=== PATIENT | male | born 1940 | race Caucasian/White ===

== ENCOUNTER 2024-03-26 12:43 | Inpatient (IN) | payer MEDICARE, SELFPAY ==
[2024-03-26] VITALS (39 sets, daily range): BP systolic 82–210; BP diastolic 39–129; PULSE 82–149; RESP 15–33; TEMP 36.5–39; O2SAT 91–100; BMI 29.5
--- NOTE | ~2024-03-26 | XR_ITS ---
Clinical Indication: Weakness, shortness of breath AP and lateral views of the chest: Comparison: 11/02/2023 Findings: The lungs are clear, without evidence of focal consolidation or pleural effusion. Cardiome diastinal silhouette is within normal limits. Bones and soft tissues are unremarkable. Impression: Clear lungs. Reviewed, dictated and finalized at location . N[facility] FEEDER Impression: Clear lungs.
--- NOTE | ~2024-03-26 | CT_ITS ---
EXAMINATION: CTA chest PE protocol DATE: 03/26/2024 15:36 INDICATION: hypoxia, SOB, tachy, hx of cancer TECHNIQUE: Computed tomography angiography (CTA) of the chest was performed with 70 mL Omnipaque-350 intravenous contrast timed to evaluate the pulmonary arteries. Coronal maximum intensity projection 3 D-reconstructions were created by the technologist. The dose-length product (DLP) was 750.70 mGy-cm. Automated exposure control and iterative reconstruction technique were employed. COMPARISON: 11/02/2023; x-ray chest 03/26/2024. FINDINGS: Lung parenchyma and airways: Considerable motion artifact in the lower lungs. No large consolidation. Patent airways. Pleura: Unremarkable. Thoracic inlet, axillae and chest wall: Unremarkable. Thoracic aorta: No significant dilation. No dissection. Mild arch calcification. Mediastinum: Patulous esophagus. Heart and pericardium: Aortic valve calcification. Coronary artery calcifications: Mild. Upper abdomen: No significant finding. Bones: No acute osseous finding. Pulmonary arteries: Study quality: Considerable motion artifact in the lower lungs which obscures the lower lobe segmental and subsegmental arteries as well as subsegmental arteries in the lingula and r ight middle lobe. No pulmonary emboli detected. IMPRESSION: Motion limited examination. Suboptimal visualization of the bilateral lower lobe segmental and subseg mental arteries as well as subsegmental arteries in the lingula and right middle lobe. As No CT evide nce of acute pulmonary embolus in the adequately visualized pulmonary arteries. No acute process detected in the chest. Reviewed, dictated and finalized at location K. [employer] IMPRESSION: Motion limited examination. Suboptimal visualization of the bilateral lower lob e segmental and subsegmental arteries as well as subsegmental arteries in the l ingula and right middle lobe. As No CT evidence of acute pulmonary embolus in t he adequately visualized pulmonary arteries. No acute process detected in the chest.
--- NOTE | ~2024-03-26 | XR_ITS ---
EXAMINATION: XR chest 1V portable DATE: 03/29/2024 17:08 INDICATION: Shortness of breath TECHNIQUE: frontal view of the chest was obtained. COMPARISON: Chest radiograph dated 03/26/2024 FINDINGS: Mild increased interstitial pattern on the left lung base and at the right lower lung zone where ther e are also some peripheral curvilinear B-lines consistent with mild pulmonary edema. No pleural effus ion or pneumothorax. The cardiomediastinal silhouette is within normal limits for AP technique. IMPRESSION: 1. Mild pulmonary edema in the lower lungs, right greater left. Reviewed, dictated and finalized at location A. MODEL MAKER
--- NOTE | ~2024-03-26 | CT_ITS ---
EXAMINATION: CT abdomen pelvis wo con DATE: 03/26/2024 17:22 INDICATION: diarrhea, sepsis unclear source TECHNIQUE: Computed tomography (CT) of the abdomen and pelvis was performed without intravenous contr ast. Automated exposure control and iterative reconstruction technique were employed. The dose-length product was 1204.03 mGy-cm. COMPARISON: 07/07/2018. FINDINGS: Lower thorax: Mild senescent/emphysematous change. Lingular scar/atelectasis. Coronary artery and aor tic valve calcification. Liver: Normal. Biliary/Gallbladder: Gallbladder is absent. No bile duct dilation. Pancreas: No mass or duct dilation. Spleen: Granulomatous calcifications. Adrenals:No mass. Kidneys: Excreted contrast in multiple calyces. Patchy somewhat striated appearing nephrograms. Simpl e bilateral cysts. Perinephric stranding. GI tract: No small or large bowel dilation. Normal appendix. Diverticulosis without diverticulitis. Mesentery/Peritoneum: No ascites, mass, or free air. Retroperitoneum: No mass. Pelvis: Status post post prostatectomy. Normal urinary bladder. Left pelvic reservoir. Excreted contr ast in the urinary bladder. Soft Tissues: Small uncomplicated appearing fat-containing umbilical and bilateral inguinal hernias. Bones: No acute osseous finding. IMPRESSION: Striated appearing nephrograms which can occur with acute pyelonephritis, acute tubular necrosis, and hypotension. No signs of obstruction or medullary sponge kidney. Reviewed, dictated and finalized at location K. UCT CRAFTSMAN
--- NOTE | ~2024-03-26 | US_ITS ---
US renal BI Ordering provider: Marilu Rdz MD History: . GABRIELA on CKD . Comparison: None. Technique: Ultrasound bilateral kidneys. Findings: RIGHT KIDNEY: Measures 13x 5.4x 5.4 cm in length which is normal in size. No renal cysts. No renal ma ss or visualized echogenic stones. Otherwise, normal echotexture and contour. No hydronephrosis. Norm al renal cortical thickness. LEFT KIDNEY: Measures 11.6x 6x 5.1 cm in length which is normal in size. No renal cysts. No renal mas s or visualized echogenic stones. Otherwise, normal echotexture and contour. No hydronephrosis. Yesenia l renal cortical thickness. BLADDER: Normal. Ureteral jets were not seen bilaterally. IMPRESSION: No definite abnormality seen. Reviewed, dictated and finalized at location A. BOX OPERATOR
--- NOTE | 2024-03-26 12:46 | ECG_ITS ---
Test Date: 2024-03-26 12:55:31 Measurements Intervals [place] Rate: 110 P: -48 IA: 213 QRS: 55 QRSD: 127 T: 51 QT: 330 QTc: 447 Interpretive Statements SINUS TACHYCARDIA WITH FIRST DEGREE AV BLOCK INDETERMINATE AXIS RIGHT BUNDLE BRANCH BLOCK [120+ ms QRS DURATION, UPRIGHT V1, 40+ ms S IN I/aVL/V4/V5/V6] No previous ECG available for comparison Electronically Signed On 03-26-2024 22:03:22 AUDIOMETRIC TECHNICIAN by Melissa Medina M.D.
[2024-03-26 13:07] LABS: Basophils Absolute Auto 0.1 K/mm3 (0.0-0.1); Basophils Percent Auto 0.4 % (0.2-1.2); Eosinophils Absolute Auto 0.1 K/mm3 (0-0.3); Hematocrit 40.9 % (42.0-52.0); Hemoglobin 13.3 g/dL (14.0-18.0); Immature Granulocyte Absolute 0.16 K/mm3 (0.00-0.031); Immature Granulocyte Percent A 1.3 % (0-0.5); Lymphocytes Absolute Auto 1.23 K/mm3 (0.9-3.2); Lymphocytes Percent Auto 9.8 % (18.3-44.2); Mean Corpuscular HGB Conc 32.5 g/dl (32-36); Mean Corpuscular Hemoglobin 28.8 pg (26-34); Mean Corpuscular Volume 88.5 fl (80-100); Mean Platelet Volume 9.7 fl (7.4-10.4); Monocytes Absolute Auto 1.1 K/mm3 (0.1-0.6); Monocytes Percent Auto 8.9 % (2.6-8.5); Neutrophils Absolute Auto 9.9 K/mm3 (1.3-6.7); Neutrophils Percent Auto 78.6 % (45.5-73.1); Platelet Count Result 329 k/mm3 (150-375); Red Blood Count 4.62 M/mm3 (4.6-6.20); White Blood Count 12.6 K/mm3 (4.5-10.0)
[2024-03-26 13:19] LABS: Alanine Aminotransferase 14 U/L (6-50); Albumin Level 3.9 g/dL (3.5-5.1); Alkaline Phosphatase 132 U/L (38-126); Anion Gap 12 mmol/L (4-12); Aspartate Amino Transferase 23 U/L (17-59); Blood Urea Nitrogen 35 mg/dL (9-20); Calcium 9.3 mg/dL (8.4-10.2); Carbon Dioxide 21 mmol/L (22-30); Chloride 103 mmol/L (98-107); Estimated CRCL calculation 23 ml/min; Estimated Glomerular Filt Rate 26; Glucose 171 mg/dL (65-110); Potassium 3.6 mmol/L (3.4-5.0); Sodium 136 mmol/L (137-145)
--- NOTE | 2024-03-26 14:21 | ED_ITS ---
HPI - Weakness General Chief complaint: Weakness Stated complaint: weakness Time Seen by Provider: 03/26/24 14:02 History of Present Illness HPI Narrative: 83-year-old male with a history of CKD, prostate cancer presenting with generalized weakness. His family is at bedside and helps with the history. States that he has been having diarrhea some nausea vomiting, shortness of breath for the last several days. He has been increasingly weak and has not been eating or drinking much. He denies chest or abdominal pain. States that he feels a bit better now that he has oxygen on. Related Data Allergies Allergy/AdvReac Type Severity Reaction Status Date / Time No Known Allergies Allergy Verified 03/26/24 13:00 Review of Systems 2 Review of Systems: All systems reviewed & are unremarkable except as noted in HPI and below Exam 2 Narrative: GENERAL: Ill-appearing, pleasant cooperative HEAD: Normocephalic, atraumatic. EYES: PERRLA and EOMI. ENT: Mucous membranes dry NECK: Supple. CHEST: On 2 L nasal cannula, somewhat coarse breath sounds bilaterally No respiratory distress. HEART: Tachycardic, regular rhythm. ABDOMEN: Soft, nontender, nondistended EXTREMITIES: Normal range of motion. No edema. SKIN: Warm, dry, no rash. NEURO: Alert and oriented x3. PSYCH: Normal mood and affect. Course Vital Signs Vital signs: Vital Signs Temperature 102.2 F H 03/26/24 12:37 Pulse Rate 111 H 03/26/24 12:37 Respiratory Rate 24 H 03/26/24 12:37 Blood Pressure 210/129 H 03/26/24 12:37 Pulse Oximetry 93 03/26/24 12:37 Oxygen Delivery Room Air 03/26/24 12:37 Temperature 97.8 F 03/26/24 18:12 Pulse Rate 87 03/26/24 18:12 Respiratory Rate 20 03/26/24 18:12 Blood Pressure 129/58 L 03/26/24 18:12 Pulse Oximetry 95 03/26/24 18:50 Oxygen Delivery Room Air 03/26/24 18:50 Oxygen Flow Rate 1 03/26/24 18:00 MDM - Weakness MDM Narrative Medical decision making narrative: 83-year-old male presenting with generalized weakness, shortness of breath, diarrhea. Patient is tachycardic, tachypneic, febrile on arrival. 30 cc/kilos bolus has been ordered. Baseline creatinine is around 2.00 according to outside records on his [facility] my chart. Creatinine today is 2.4. White count of 12.6. UA does not appear infected. Lactic acid is normal. Patient is negative for influenza and COVID. CTA of the chest shows no acute abnormalities. CT of the abdomen concerning for possible pyelonephritis or acute tubular nephrosis. Patient has been covered with broad-spectrum antibiotics. Feel he would benefit from admission for sepsis with an unclear source. He is agreeable this plan. I spoke with the hospitalist was accepted him for admission. Differential Diagnosis Differential diagnosis: Likely sepsis, dehydration and other (Viral illness, GABRIELA) Medical Records Attestation: I reviewed the patient's medical records. Lab Data Attestation: I reviewed the patient's lab results. 03/26/24 13:01 03/26/24 13:01 Labs: Lab Results 03/26/24 03/26/24 03/26/24 Range/Units 13:01 13:46 14:41 WBC 12.6 H (4.5-10.0) K/mm3 RBC 4.62 (4.6-6.20) M/mm3 Hgb 13.3 L (14.0-18.0) g/dL Hct 40.9 L (42.0-52.0) % MCV 88.5 (80-100) fl MCH 28.8 (26-34) pg MCHC 32.5 (32-36) g/dl RDW 14.0 (11.5-14.5) % Plt Count 329 (150-375) k/mm3 MPV 9.7 (7.4-10.4) fl Immature Gran % (Auto) 1.3 H (0-0.5) % Neut % (Auto) 78.6 H (45.5-73.1) % Lymph % (Auto) 9.8 L (18.3-44.2) % [place] % (Auto) 8.9 H (2.6-8.5) % Eos % (Auto) 1.0 (0-4.4) % Baso % (Auto) 0.4 (0.2-1.2) % Lymph # (Auto) 1.23 (0.9-3.2) K/mm3 [place] # (Auto) 1.1 H (0.1-0.6) K/mm3 Eos # (Auto) 0.1 (0-0.3) K/mm3 Baso # (Auto) 0.1 (0.0-0.1) K/mm3 Abs Immat Gran (auto) 0.16 H (0.00-0.031) K/mm3 Absolute Neuts (auto) 9.9 H (1.3-6.7) K/mm3 Absolute Nucleated RBC 0.000 (0.0-0.012) K/mm3 Nucleated RBC % 0.0 (0.0-0.2) % Sodium 136 L (137-145) mmol/L Potassium 3.6 (3.4-5.0) mmol/L Chloride 103 (98-107) mmol/L Carbon Dioxide 21 L (22-30) mmol/L Anion Gap 12 (4-12) mmol/L BUN 35 H (9-20) mg/dL Creatinine 2.40 H (0.7-1.3) mg/dL Estim Creat Clear Calc 23 ml/min Estimated GFR 26 L (59 - ) Glucose 171 H (65-110) mg/dL Lactic Acid 0.9 (0.7-2.0) mmol/L Calcium 9.3 (8.4-10.2) mg/dL Magnesium 1.4 L (1.6-2.3) mg/dL Total Bilirubin 1.0 (0.2-1.3) mg/dL AST 23 (17-59) U/L ALT 14 (6-50) U/L Alkaline Phosphatase 132 H (38-126) U/L Total Protein 7.0 (6.3-8.2) g/dL Albumin 3.9 (3.5-5.1) g/dL Lipase 65 (23-300) U/L Urine Color (Yellow) Urine Appearance (Clear) Urine pH (5.0-9.0) Ur Specific [place] (1.001-1.035) Urine Protein (Negative) mg/dL Urine Glucose (UA) (Negative) mg/dL Urine Ketones (Negative) mg/dL Ur Blood (Man) (Negative) Urine Nitrate (Negative) Urine Bilirubin (Negative) Urine Urobilinogen (<2.0) mg/dL Add Ur Microanalysis Leukocyte Esterase Rfl (Negative) NADYA/UL Urine RBC (0-2) /hpf Urine WBC (0-3) /hpf Ur Squamous Epith Cells (Few) /hpf Urine Bacteria /hpf Urine Casts Influenza A (RT-PCR) Negative (Negative) Influenza B (RT-PCR) Negative (Negative) RSV (RT-PCR) Negative (Negative) SARS-CoV-2 RNA (RT-PCR) Negative (Negative) 03/26/24 Range/Units 17:45 WBC (4.5-10.0) K/mm3 RBC (4.6-6.20) M/mm3 Hgb (14.0-18.0) g/dL Hct (42.0-52.0) % MCV (80-100) fl MCH (26-34) pg MCHC (32-36) g/dl RDW (11.5-14.5) % Plt Count (150-375) k/mm3 MPV (7.4-10.4) fl Immature Gran % (Auto) (0-0.5) % Neut % (Auto) (45.5-73.1) % Lymph % (Auto) (18.3-44.2) % [place] % (Auto) (2.6-8.5) % Eos % (Auto) (0-4.4) % Baso % (Auto) (0.2-1.2) % Lymph # (Auto) (0.9-3.2) K/mm3 [place] # (Auto) (0.1-0.6) K/mm3 Eos # (Auto) (0-0.3) K/mm3 Baso # (Auto) (0.0-0.1) K/mm3 Abs Immat Gran (auto) (0.00-0.031) K/mm3 Absolute Neuts (auto) (1.3-6.7) K/mm3 Absolute Nucleated RBC (0.0-0.012) K/mm3 Nucleated RBC % (0.0-0.2) % Sodium (137-145) mmol/L Potassium (3.4-5.0) mmol/L Chloride (98-107) mmol/L Carbon Dioxide (22-30) mmol/L Anion Gap (4-12) mmol/L BUN (9-20) mg/dL Creatinine (0.7-1.3) mg/dL Estim Creat Clear Calc ml/min Estimated GFR (59 - ) Glucose (65-110) mg/dL Lactic Acid (0.7-2.0) mmol/L Calcium (8.4-10.2) mg/dL Magnesium (1.6-2.3) mg/dL Total Bilirubin (0.2-1.3) mg/dL AST (17-59) U/L ALT (6-50) U/L Alkaline Phosphatase (38-126) U/L Total Protein (6.3-8.2) g/dL Albumin (3.5-5.1) g/dL Lipase (23-300) U/L Urine Color Yellow (Yellow) Urine Appearance Cloudy H (Clear) Urine pH 5.5 (5.0-9.0) Ur Specific [place] 1.018 (1.001-1.035) Urine Protein 2+ H (Negative) mg/dL Urine Glucose (UA) Negative (Negative) mg/dL Urine Ketones 1+ H (Negative) mg/dL Ur Blood (Man) Negative (Negative) Urine Nitrate Negative (Negative) Urine Bilirubin Negative (Negative) Urine Urobilinogen 0.2 (<2.0) mg/dL Add Ur Microanalysis Reviewed Leukocyte Esterase Rfl Negative (Negative) NADYA/UL Urine RBC 0-2 (0-2) /hpf Urine WBC 0-5 (0-3) /hpf Ur Squamous Epith Cells None seen (Few) /hpf Urine Bacteria None seen /hpf Urine Casts >20 Influenza A (RT-PCR) (Negative) Influenza B (RT-PCR) (Negative) RSV (RT-PCR) (Negative) SARS-CoV-2 RNA (RT-PCR) (Negative) Imaging Data Radiologist's impression: ITS Impressions Chest X-Ray 03/26/24 13:57 Impression: Clear lungs. Chest CTA 03/26/24 15:51 IMPRESSION: Motion limited examination. Suboptimal visualization of the bilateral lower lobe segmental and subsegmental arteries as well as subsegmental arteries in the lingula and right middle lobe. As No CT evidence of acute pulmonary embolus in the adequately visualized pulmonary arteries. No acute process detected in the chest. Abdomen/Pelvis CT 03/26/24 17:24 IMPRESSION: Striated appearing nephrograms which can occur with acute pyelonephritis, acute tubular necrosis, and hypotension. No signs of obstruction or medullary sponge kidney. Critical Care Time Critical Care Time Critical Care Time: No Discharge Plan Discharge Clinical Impression: SIRS (systemic inflammatory response syndrome), Febrile illness, Diarrhea Patient Disposition: Still a Patient Condition: Improved Instructions: Antibiotic Form Patient Language: Martiniquais Follow-up/Referrals: Jeane,Kraig Fernandez MD [Primary Care Provider] -
[2024-03-26 14:25] LABS: Influenza A QL RT-PCR Negative (Negative); Influenza B QL RT-PCR Negative (Negative); RSV RNA, RT-PCR Negative (Negative); SARS-CoV-2 RNA PCR Negative (Negative)
[2024-03-26] MEDS: ACETAMINOPHEN 500 MG TABLET 1000 MG PO ×2 (14:31→23:57)
[2024-03-26] MEDS: SODIUM CHLORIDE 0.9% IV 1,000 ML 999 ML IV CONT ×3 (14:31→17:37)
[2024-03-26] MEDS: ONDANSETRON INJ 4 MG/2 ML VIAL IV PUSH (14:33)
[2024-03-26 14:34] LABS: Lipase 65 U/L (23-300); Magnesium 1.4 mg/dL (1.6-2.3)
[2024-03-26 14:58] LABS: Lactic Acid Reflex 0.9 mmol/L (0.7-2.0)
[2024-03-26] MEDS: CEFEPIME 2 GM/NS 50 ML 2 GM/50 ML BAG IVPB (17:38)
[2024-03-26] MEDS: VANCOMYCIN 1,250 MG/NS 250 ML 1,250 MG/250 ML BAG 166.67 MG IVPB ×2 (18:10→20:02)
[2024-03-26 18:15] LABS: Add Urine Microscopic? YES; Appearance Urine Cloudy (Clear); Bacteria Urine None Seen /hpf; Bilirubin Urine Negative (Negative); Blood Urine Negative (Negative); Color Urine Yellow (Yellow); Glucose Urine UA Negative (Negative); Ketones Urine 1+ mg/dL (Negative); Leukocyte Esterase Ur Negative LEU/UL (Negative); Need Manual Microscopic Reviewed; Nitrate Urine Negative (Negative); Non Pathogenic Casts >20; Protein Urine 2+ mg/dL (Negative); RBC Urine 0-2 /hpf (0-2); Specific Grav Ur 1.018 (1.001-1.035); Squamous Epithelial Cell Urine None Seen /hpf (Few); Urobilinogen Urine 0.2 mg/dL (<2.0); WBC Urine 0-5 /hpf (0-3); pH Urine 5.5 (5.0-9.0)
--- NOTE | 2024-03-26 20:13 | PC.NURSE ---
Admission report to [facility] Doty.
[2024-03-26 20:40] LABS: Glucose Point of Care 140 mg/dl (65-105)
--- NOTE | 2024-03-26 21:12 | P.HP_ITS ---
H&P: HPI History of Present Illness Date/Time: 03/26/24 21:12 Chief Complaint: chills Narrative: This is an 83-year-old male with past medical history significant for insulin- dependent diabetes mellitus, dyslipidemia, chronic kidney disease, glaucoma. Patient presents to the emergency room due to generalized malaise, chills, fevers, night sweats, poor appetite for the last week or so. Upon presentation to emergency room patient had low pulse ox placed on supplemental oxygen by nasal cannula. Preliminary workup was significant for patient was ruled out for acute pulmonary embolism with a negative CT angiogram of the chest patient was found to have pyelonephritis. AP and lateral views of the chest: Comparison: 11/02/2023 Findings: The lungs are clear, without evidence of focal consolidation or p leural effusion. Cardiomediastinal silhouette is within normal limits. Bones and soft tissues are unremarkable. Impression: Clear lungs. EXAMINATION: CTA chest PE protocol DATE: 03/26/2024 15:36 INDICATION: hypoxia, SOB, tachy, hx of cancer TECHNIQUE: Computed tomography angiography (CTA) of the chest was performed with 70 mL Omnipaque-350 intravenous contrast timed to evaluate the pulmonary arteries. Coronal maximum intensity projection 3D-reconstructions were created by the technologist. The dose-length product (DLP) was 750.70 mGy-cm. Automated exposure control and iterative reconstruction technique were employed. COMPARISON: 11/02/2023; x-ray chest 03/26/2024. FINDINGS: Lung parenchyma and airways: Considerable motion artifact in the lower lungs. No large consolidation. Patent airways. Pleura: Unremarkable. Thoracic inlet, axillae and chest wall: Unremarkable. Thoracic aorta: No significant dilation. No dissection. Mild arch calcification. Mediastinum: Patulous esophagus. Heart and pericardium: Aortic valve calcification. Coronary artery calcifications: Mild. Upper abdomen: No significant finding. Bones: No acute osseous finding. Pulmonary arteries: Study quality: Considerable motion artifact in the lower lungs which obscures the lower lobe segmental and subsegmental arteries as well as subsegmental arteries in the lingula and right middle lobe. No pulmonary emboli detected. IMPRESSION: Motion limited examination. Suboptimal visualization of the bilateral lower lobe segmental and subsegmental arteries as well as subsegmental arteries in the lingula and right middle lobe. As No CT evidence of acute pulmonary embolus in the adequately visualized pulmonary arteries. No acute process detected in the chest. EXAMINATION: CT abdomen pelvis wo con DATE: 03/26/2024 17:22 INDICATION: diarrhea, sepsis unclear source TECHNIQUE: Computed tomography (CT) of the abdomen and pelvis was performed without intravenous contrast. Automated exposure control and iterative reconstruction technique were employed. The dose-length product was 1204.03 mGy- cm. COMPARISON: 07/07/2018. FINDINGS: Lower thorax: Mild senescent/emphysematous change. Lingular scar/atelectasis. Coronary artery and aortic valve calcification. Liver: Normal. Biliary/Gallbladder: Gallbladder is absent. No bile duct dilation. Pancreas: No mass or duct dilation. Spleen: Granulomatous calcifications. Adrenals:No mass. Kidneys: Excreted contrast in multiple calyces. Patchy somewhat striated appearing nephrograms. Simple bilateral cysts. Perinephric stranding. GI tract: No small or large bowel dilation. Normal appendix. Diverticulosis without diverticulitis. Mesentery/Peritoneum: No ascites, mass, or free air. Retroperitoneum: No mass. Pelvis: Status post post prostatectomy. Normal urinary bladder. Left pelvic reservoir. Excreted contrast in the urinary bladder. Soft Tissues: Small uncomplicated appearing fat-containing umbilical and bilateral inguinal hernias. Bones: No acute osseous finding. IMPRESSION: Striated appearing nephrograms which can occur with acute pyelonephritis, acute tubular necrosis, and hypotension. No signs of obstruction or medullary sponge kidney. [facility] Family History Family History (Updated 03/26/24 @ 19:50 by Latasha Stewart RN) Mother Kidney failure Father Alzheimer's dementia Social History Social History Years smoked: 65 Smoking status: Current every day smoker Alcohol intake: current Drinks per week: 4 Substance use type: marijuana Do You Feel Safe in your Home?: Yes Lack of Transportation: No Lack of Food: Never True Current Housing: I Have Housing Concerned About Future Housing: No Difficulty Paying Gas/Electric Bills: No Difficulty Paying for Meds: No Currently Unemployed: No Education: Master's Degree or Higher Difficulty w/ Childcare or Family Care: No Spiritual care concerns: No Meds Home Medications and Allergies Home Medications ?Medication ?Instructions ?Recorded ?Confirmed ?Type abiraterone 250 mg tablet 1,000 mg PO HS 03/26/24 03/26/24 History carvedilol 12.5 mg tablet 12.5 mg PO Q12H 03/26/24 03/26/24 History chlorthalidone 25 mg tablet 25 mg PO DAILY 03/26/24 03/26/24 History dorzolamide 22.3 mg-timolol 6.8 1 drp EACH EYE Q12H 03/26/24 03/26/24 History mg/mL eye drops fluoride (sodium) 1.1 % dental 1 applic dental Q24H 03/26/24 03/26/24 History cream (PreviDent 5000 Plus) insulin aspart U-100 100 unit/mL 1 sliding scale dose subcut TID 03/26/24 03/26/24 History (3 mL) subcutaneous pen (Novolog FlexPen U-100 Insulin aspart) insulin glargine 100 unit/mL (3 28 unit subcut QPM 03/26/24 03/26/24 History mL) subcutaneous pen (Lantus Solostar U-100 Insulin) lisinopril 20 mg tablet 40 mg PO DAILY 03/26/24 03/26/24 History oxycodone 5 mg tablet 5 mg PO Q6H PRN pain 03/26/24 03/26/24 History pantoprazole 40 mg tablet,delayed 40 mg PO DAILY 03/26/24 03/26/24 History release pravastatin 20 mg tablet 20 mg PO DAILY 03/26/24 03/26/24 History prednisone 5 mg tablet 5 mg PO Q12H 03/26/24 03/26/24 History sitagliptin phosphate 25 mg tablet 25 mg PO DAILY 03/26/24 03/26/24 History (Kendra) Allergies Allergy/AdvReac Type Severity Reaction Status Date / Time No Known Allergies Allergy Verified 03/26/24 20:07 Vital Signs Vital Signs - 24 hr 03/26/24 12:37 03/26/24 12:58 03/26/24 12:58 Temperature 102.2 F H Pulse Rate 111 H Respiratory Rate 24 H Blood Pressure 210/129 H Pulse Oximetry 93 93 96 Oxygen Delivery Room Air Room Air Nasal Cannula Oxygen Flow Rate 2 03/26/24 13:45 03/26/24 13:46 03/26/24 14:30 Temperature Pulse Rate 114 H 119 H 95 Respiratory Rate 15 25 H 24 H Blood Pressure 152/63 H Pulse Oximetry 94 94 96 Oxygen Delivery Oxygen Flow Rate 03/26/24 14:43 03/26/24 15:01 03/26/24 15:34 Temperature 97.7 F Pulse Rate 149 H 103 H Respiratory Rate 23 H Blood Pressure 136/121 H Pulse Oximetry 100 Oxygen Delivery Oxygen Flow Rate 03/26/24 15:35 03/26/24 15:52 03/26/24 16:00 Temperature 97.8 F Pulse Rate 88 106 H 87 Respiratory Rate 20 26 H 22 H Blood Pressure 106/56 L 103/53 L Pulse Oximetry 97 94 Oxygen Delivery Oxygen Flow Rate 03/26/24 16:02 03/26/24 16:55 03/26/24 17:00 Temperature Pulse Rate 95 90 98 Respiratory Rate 22 H 23 H 22 H Blood Pressure 82/39 L Pulse Oximetry 94 Oxygen Delivery Oxygen Flow Rate 03/26/24 17:01 03/26/24 17:23 03/26/24 17:35 Temperature Pulse Rate 100 103 H 82 Respiratory Rate 25 H 29 H 22 H Blood Pressure Pulse Oximetry 97 98 Oxygen Delivery Oxygen Flow Rate 03/26/24 17:37 03/26/24 17:45 03/26/24 17:45 Temperature 97.7 F Pulse Rate 98 93 89 Respiratory Rate 27 H 25 H 24 H Blood Pressure 119/89 119/89 Pulse Oximetry 99 97 97 Oxygen Delivery Oxygen Flow Rate 03/26/24 17:46 03/26/24 17:46 03/26/24 18:00 Temperature Pulse Rate 115 H Respiratory Rate 23 H Blood Pressure 115/60 Pulse Oximetry 97 98 97 Oxygen Delivery Nasal Cannula Nasal Cannula Oxygen Flow Rate 2 1 03/26/24 18:00 03/26/24 18:01 03/26/24 18:12 Temperature 97.8 F Pulse Rate 91 90 87 Respiratory Rate 22 H 33 H 20 Blood Pressure 129/58 L 129/58 L Pulse Oximetry 97 96 Oxygen Delivery Oxygen Flow Rate 03/26/24 18:23 03/26/24 18:30 03/26/24 18:31 Temperature Pulse Rate 104 H 110 H 108 H Respiratory Rate 20 24 H 15 Blood Pressure 118/50 L Pulse Oximetry 91 96 96 Oxygen Delivery Oxygen Flow Rate 03/26/24 18:45 03/26/24 18:46 03/26/24 18:50 Temperature Pulse Rate 92 95 Respiratory Rate 22 H 20 Blood Pressure 123/49 L Pulse Oximetry 94 93 95 Oxygen Delivery Room Air Oxygen Flow Rate 03/26/24 19:00 03/26/24 19:01 03/26/24 19:15 Temperature Pulse Rate 112 H 109 H 96 Respiratory Rate 20 22 H 19 Blood Pressure 125/53 L Pulse Oximetry 95 Oxygen Delivery Oxygen Flow Rate 03/26/24 19:16 03/26/24 20:21 03/26/24 21:05 Temperature 98.3 F Pulse Rate 99 99 90 Respiratory Rate 20 20 18 Blood Pressure 109/44 L 109/44 L 118/59 L Pulse Oximetry 94 96 Oxygen Delivery Oxygen Flow Rate Exam Narrative: lying in bed Const: General: cooperative, comfortable, no acute distress, well developed, alert, awake, ill appearing acutely and overweight Nutritional Appearance: overweight Orientation/consciousness: patient oriented x3 HENMT: Head: normal to inspection, normocephalic and atraumatic Ears: hearing grossly normal bilaterally Face/Nose/Sinus: normal facial exam Face and sinus: normal facial exam Eyes: General: appearance normal, both eyes and all related structures Pupils: Equal, round and reactive pupils present EOM: EOMs intact bilaterally Neck: Neck: full ROM, no lymphadenopathy and no JVD Thyroid: thyroid normal Lymphatic: no lymphadenopathy noted Resp: Effort & Inspection: normal respiratory effort and able to speak in complete sentences Auscultation: clear to auscultation bilaterally Cardio: Jugular venous distension: no JVD Rate: regular rate Rhythm: regular rhythm Heart sounds: S1 normal heart sound present and S2 normal heart sound present GI: Inspection: Pannus present, obesity, scar (old surgical scar) and no visible herniation GI Palp: Yes Soft to palpation and Yes No hepatosplenomegaly present : General: Yes deferred Skin: Rashes: no rashes Wounds: no wounds Neuro: General: patient oriented x3 and CN's II-XI intact bilaterally Cranial nerves: Yes CN's II-XII intact bilaterally and Yes Equal, round and reactive pupils present Cognition (Neuro): normal cognition Speech: normal speech Motor exam (neuro): 5/5 motor strength present throughout Extrem: General: normal to inspection, full ROM, no joint enlargement and no pedal edema H&P: Results Labs Labs: Short CBC 03/26/24 Range/Units 13:01 WBC 12.6 H (4.5-10.0) K/mm3 Hgb 13.3 L (14.0-18.0) g/dL Hct 40.9 L (42.0-52.0) % Plt Count 329 (150-375) k/mm3 BMP 03/26/24 13:01 Sodium 136 L Potassium 3.6 Chloride 103 Carbon Dioxide 21 L BUN 35 H Creatinine 2.40 H Glucose 171 H Calcium 9.3 Liver Function 03/26/24 Range/Units 13:01 Total Bilirubin 1.0 (0.2-1.3) mg/dL AST 23 (17-59) U/L ALT 14 (6-50) U/L Alkaline Phosphatase 132 H (38-126) U/L Albumin 3.9 (3.5-5.1) g/dL Urine 03/26/24 Range/Units 17:45 Urine Color Yellow (Yellow) Urine Appearance Cloudy H (Clear) Urine pH 5.5 (5.0-9.0) Ur Specific [place] 1.018 (1.001-1.035) Urine Protein 2+ H (Negative) mg/dL Urine Glucose (UA) Negative (Negative) mg/dL Assessment and Plan Assessment and plan (1) Pyelonephritis: Code(s): N12 - Tubulo-interstitial nephritis, not specified as acute or chronic Status: Acute Assessment and Plan: Admit to med tele patient started on cefepime and vancomycin await cultures (2) Acute hypoxic respiratory failure: Code(s): J96.01 - Acute respiratory failure with hypoxia Status: Acute Assessment and Plan: on supplemental oxygen by nasal cannula ruled out for acute pulmonary embolism with CT angiogram of the chest (3) Diarrhea: Code(s): R19.7 - Diarrhea, unspecified Status: Acute Assessment and Plan: continue to monitor (4) Febrile illness: Code(s): R50.9 - Fever, unspecified Status: Acute Assessment and Plan: likely secondary to 1. (5) SIRS (systemic inflammatory response syndrome): Code(s): R65.10 - Systemic inflammatory response syndrome (SIRS) of non-infectious origin without acute organ dysfunction Status: Acute Assessment and Plan: Supportive care (6) T2DM (type 2 diabetes mellitus): Code(s): E11.9 - Type 2 diabetes mellitus without complications Status: Acute Assessment and Plan: resume home meds as needed holding Januvia carb consistent diet (7) Hypomagnesemia: Code(s): E83.42 - Hypomagnesemia Status: Acute Assessment and Plan: replace as needed (8) GABRIELA (acute kidney injury): Code(s): N17.9 - Acute kidney failure, unspecified Status: Acute Assessment and Plan: holding losartan holding chlorthalidone Hospitalist [facility] Advance Care Plan I have confirmed that the patient's Advanced Care Plan is present, code status is documented, or surrogate decision maker is listed in patient medical record.: Yes Medication Reconciliation I have utilized all available resources to obtain, update and review the patients current medications (includes all prescriptions, OTC, herbals, cannabis, and nutritional supplements).: Yes
[2024-03-26] MEDS: MAGNESIUM SULF 2 GM/WATER 50ML 2 GM/50 ML BAG IVPB (23:00)
[2024-03-26] MEDS: carvediloL 12.5 MG TABLET PO (23:01)
[2024-03-26] MEDS: predniSONE 5 MG TABLET PO (23:02)
[2024-03-27] VITALS (14 sets, daily range): BP systolic 100–119; BP diastolic 58–71; PULSE 68–83; RESP 16–22; TEMP 36.3–37; O2SAT 93–100
[2024-03-27] MEDS: IPRATROPIUM 0.5 MG/ALBUTEROL SULFATE 2.5 MG AMPUL.NEB 3 ML INHALATION ×4 (00:16→21:27)
--- NOTE | 2024-03-27 00:21 | ADMGEN ---
This patient, David Wei, was admitted to [facility] Surg Room 305-02. Patient/family oriented to hospital policies and general routines including ID bracelet, bed and alarms, visiting hours, pain management, procedures, bathroom and other care routines, personal items, smoking policy, room service/diet, and visiting hours. Information on how to activate the Rapid Response Team has been discussed. Patient/Family are encouraged to report perceived risks to care and to ask questions if they do not understand what they are told or what they should do.
[2024-03-27 07:20] LABS: Estimated CRCL calculation 17 ml/min; Estimated Glomerular Filt Rate 18
[2024-03-27 07:34] LABS: Glucose Point of Care 171 mg/dl (65-105)
[2024-03-27] MEDS: PANTOPRAZOLE 40 MG TABLET PO (08:43)
[2024-03-27] MEDS: predniSONE 5 MG TABLET PO ×2 (08:43→20:39)
[2024-03-27] MEDS: carvediloL 12.5 MG TABLET PO (08:44)
[2024-03-27 11:17] LABS: Glucose Point of Care 200 mg/dl (65-105)
--- NOTE | 2024-03-27 11:37 | P.PNIM_ITS ---
Progress Note: A&P Assessment and Plan (1) Pyelonephritis: Code(s): N12 - Tubulo-interstitial nephritis, not specified as acute or chronic Status: Acute Assessment and Plan: - patient on cefepime and vancomycin - await blood and urine cultures. - Nephro consulted. (2) Acute hypoxic respiratory failure: Code(s): J96.01 - Acute respiratory failure with hypoxia Status: Acute Assessment and Plan: - Unclear etiology. - CTA chest negative for PE or other acute. - CXR negative. - Possibly CHF vs other. - Currently on supplemental oxygen 3L/NC for sats > 90 %. - We'll wean O2 as tolerated. - Avoid lasix for now with GABRIELA on CKD. - Monitor progress. (3) Diarrhea: Code(s): R19.7 - Diarrhea, unspecified Status: Acute Assessment and Plan: - Unclear etiology. - Much improved. - monitor for now. (4) Febrile illness: Code(s): R50.9 - Fever, unspecified Status: Acute Assessment and Plan: - likely secondary to 1. - No episodes today. (5) SIRS (systemic inflammatory response syndrome): Code(s): R65.10 - Systemic inflammatory response syndrome (SIRS) of non-infectious origin without acute organ dysfunction Status: Acute Assessment and Plan: - Likely related to # 1. - Continue supportive care with IV abx. (6) T2DM (type 2 diabetes mellitus): Code(s): E11.9 - Type 2 diabetes mellitus without complications Status: Acute Assessment and Plan: - Blood glucose levels slightly elevated. - Prandial insulin slightly adjusted. - Continue to adjust insulin as needed. - Continue carb consistent diet (7) Hypomagnesemia: Code(s): E83.42 - Hypomagnesemia Status: Acute Assessment and Plan: replace as needed (8) GABRIELA (acute kidney injury): Code(s): N17.9 - Acute kidney failure, unspecified Status: Acute Assessment and Plan: - GABRIELA on CKD. - Follows up with adjunct physics instructor outpatient. - Cr higher than previous baseline. - holding losartan - holding chlorthalidone - Diving Board Assembler consulted. - Avoid nephrotoxins. - Meds dosing per renal function. Time Spent With Patient Time with patient: 15 - 25 minutes Subjective Date/time seen: 03/27/24 11:37 Patient states he feels alright and has no pain or other distressful symptoms. Interval history: Patient seated bedside and looks to be in no acute distress. Admitted for pyelonephritis and GABRIELA on CKD. Review of Systems Review of Systems: All systems reviewed & are unremarkable except as noted in HPI and below Exam Narrative: General: Fair appearing, no acute distress. HEENT: Atraumatic, PERRL, EOM, moist mucosa. NECK: Supple. Lungs: Clear bilaterally. HEART: RRR, no murmurs. Abdomen: Soft, non-tender, non-distended, +ve bowels X4 quadrants. Extremities: Acyanotic, no edema. Skin: Warm and dry. No lesions. Neuro: Well oriented. CN II-XII grossly intact. Psych: Calm and co-operative. Objective Data Vital Signs Vital Signs: Vital Signs - 24 hr 03/26/24 12:37 03/26/24 12:58 03/26/24 12:58 Temperature 102.2 F H Pulse Rate 111 H Respiratory Rate 24 H Blood Pressure 210/129 H Pulse Oximetry 93 93 96 Oxygen Delivery Room Air Room Air Nasal Cannula Oxygen Flow Rate 2 03/26/24 13:45 03/26/24 13:46 03/26/24 14:30 Temperature Pulse Rate 114 H 119 H 95 Respiratory Rate 15 25 H 24 H Blood Pressure 152/63 H Pulse Oximetry 94 94 96 Oxygen Delivery Oxygen Flow Rate 03/26/24 14:43 03/26/24 15:01 03/26/24 15:34 Temperature 97.7 F Pulse Rate 149 H 103 H Respiratory Rate 23 H Blood Pressure 136/121 H Pulse Oximetry 100 Oxygen Delivery Oxygen Flow Rate 03/26/24 15:35 03/26/24 15:52 03/26/24 16:00 Temperature 97.8 F Pulse Rate 88 106 H 87 Respiratory Rate 20 26 H 22 H Blood Pressure 106/56 L 103/53 L Pulse Oximetry 97 94 Oxygen Delivery Oxygen Flow Rate 03/26/24 16:02 03/26/24 16:55 03/26/24 17:00 Temperature Pulse Rate 95 90 98 Respiratory Rate 22 H 23 H 22 H Blood Pressure 82/39 L Pulse Oximetry 94 Oxygen Delivery Oxygen Flow Rate 03/26/24 17:01 03/26/24 17:23 03/26/24 17:35 Temperature Pulse Rate 100 103 H 82 Respiratory Rate 25 H 29 H 22 H Blood Pressure Pulse Oximetry 97 98 Oxygen Delivery Oxygen Flow Rate 03/26/24 17:37 03/26/24 17:45 03/26/24 17:45 Temperature 97.7 F Pulse Rate 98 93 89 Respiratory Rate 27 H 25 H 24 H Blood Pressure 119/89 119/89 Pulse Oximetry 99 97 97 Oxygen Delivery Oxygen Flow Rate 03/26/24 17:46 03/26/24 17:46 03/26/24 18:00 Temperature Pulse Rate 115 H Respiratory Rate 23 H Blood Pressure 115/60 Pulse Oximetry 97 98 97 Oxygen Delivery Nasal Cannula Nasal Cannula Oxygen Flow Rate 2 1 03/26/24 18:00 03/26/24 18:01 03/26/24 18:12 Temperature 97.8 F Pulse Rate 91 90 87 Respiratory Rate 22 H 33 H 20 Blood Pressure 129/58 L 129/58 L Pulse Oximetry 97 96 Oxygen Delivery Oxygen Flow Rate 03/26/24 18:23 03/26/24 18:30 03/26/24 18:31 Temperature Pulse Rate 104 H 110 H 108 H Respiratory Rate 20 24 H 15 Blood Pressure 118/50 L Pulse Oximetry 91 96 96 Oxygen Delivery Oxygen Flow Rate 03/26/24 18:45 03/26/24 18:46 03/26/24 18:50 Temperature Pulse Rate 92 95 Respiratory Rate 22 H 20 Blood Pressure 123/49 L Pulse Oximetry 94 93 95 Oxygen Delivery Room Air Oxygen Flow Rate 03/26/24 19:00 03/26/24 19:01 03/26/24 19:15 Temperature Pulse Rate 112 H 109 H 96 Respiratory Rate 20 22 H 19 Blood Pressure 125/53 L Pulse Oximetry 95 Oxygen Delivery Oxygen Flow Rate 03/26/24 19:16 03/26/24 20:21 03/26/24 21:05 Temperature 98.3 F Pulse Rate 99 99 90 Respiratory Rate 20 20 18 Blood Pressure 109/44 L 109/44 L 118/59 L Pulse Oximetry 94 96 Oxygen Delivery Oxygen Flow Rate 03/26/24 23:01 03/26/24 23:40 03/26/24 23:45 Temperature 100.5 F H Pulse Rate 98 105 H Respiratory Rate 24 H Blood Pressure 102/54 L Pulse Oximetry 94 94 Oxygen Delivery Nasal Cannula Oxygen Flow Rate 3 03/26/24 23:57 03/27/24 00:00 03/27/24 00:17 Temperature 100.5 F H Pulse Rate 78 70 Respiratory Rate 22 H Blood Pressure Pulse Oximetry Oxygen Delivery Oxygen Flow Rate 03/27/24 00:35 03/27/24 00:57 03/27/24 04:00 Temperature 97.9 F 97.8 F Pulse Rate 70 Respiratory Rate Blood Pressure Pulse Oximetry Oxygen Delivery Oxygen Flow Rate 03/27/24 05:48 03/27/24 08:00 03/27/24 08:00 Temperature 98.6 F Pulse Rate 74 68 Respiratory Rate 20 Blood Pressure 104/59 L Pulse Oximetry 97 97 Oxygen Delivery Nasal Cannula Oxygen Flow Rate 3 03/27/24 08:44 Temperature Pulse Rate 74 Respiratory Rate Blood Pressure Pulse Oximetry Oxygen Delivery Oxygen Flow Rate Intake/Output Intake/Output: Intake & Output 03/24/24 03/25/24 03/26/24 03/27/24 23:59 23:59 23:59 23:59 Intake Total 3300 490 Output Total 300 200 Balance 3000 290 Meds/Results Medications: Active Medications Generic Name Dose Route Start Last Admin Trade Name Freq PRN Reason Stop Dose Admin Albuterol/Ipratropium 3 ml 03/27/24 00:03 03/27/24 00:16 Ipratropium 0.5 Mg/Albuterol Sulfate 2.5 Mg Ampul.Neb 3 Ml INHALATION 3 ml Q6HRT [facility] Administration Carvedilol 12.5 mg 03/26/24 09:00 03/27/24 08:44 Carvedilol 12.5 Mg Tablet PO 12.5 mg Q12HR PJ Administration Dorzolamide/Timolol 1 drop 03/26/24 22:25 03/26/24 23:02 Dorzolamide/Timolol Ophth Sarah 10 Ml Bottle EACH EYE Not Given Q12HR [facility] Cefepime HCl 2 gm in 50 mls @ 100 mls/hr 03/27/24 17:00 Maxipime 2 Gm/Ns 50 Ml IVPB Q24H [facility] Insulin Aspart 5 units 03/27/24 08:00 03/27/24 08:42 Insulin Aspart (*Bkc) 100 Units/Ml 0.05 units/kg (5 units) Not Given SUB-Q TIDWM [facility] Insulin Glargine 28 units 03/26/24 22:35 03/26/24 23:02 Insulin Glargine (*Bkc) 100 Units/Ml SUB-Q Not Given QHS [facility] Miscellaneous Information 1 each 03/26/24 00:01 (Fluoride (Sodium) [Prevident 5000 Plus] 1.1 % Cream) Is Nonformulary, Can Patient Bring F XX 04/25/24 00:00 CLARIFY [facility] Miscellaneous Information 1 each 03/26/24 00:01 (Abiraterone 250 Mg Tablet) Is Nonformulary, Can Patient Bring From Home? XX 04/25/24 00:00 CLARIFY [facility] Non-Formulary Medication 1,000 mg 03/27/24 21:00 Abiraterone PO 04/26/24 20:59 HS PJ Non-Formulary Medication 1 applic 03/26/24 22:30 Fluoride (Sodium) [Prevident 5000 Plus] DENTAL 04/25/24 22:29 Q24H PJ Oxycodone HCl 5 mg 03/26/24 22:22 Oxycodone Hcl (*Crx) 5 Mg Tab Ir PO Q6H PRN pain Pantoprazole Sodium 40 mg 03/27/24 09:00 03/27/24 08:43 Pantoprazole 40 Mg Tablet PO 40 mg DAILY PJ Administration Prednisone 5 mg 03/26/24 22:25 03/27/24 08:43 Prednisone 5 Mg Tablet PO 5 mg Q12HR PJ Administration Vancomycin HCl 1 each 03/27/24 08:02 Vancomycin For Acute Kidney Injury IVPB PRN PRN Vancomycin Protocol Radiology Results: ITS Impressions Chest X-Ray 03/26/24 13:57 Impression: Clear lungs. Chest CTA 03/26/24 15:51 IMPRESSION: Motion limited examination. Suboptimal visualization of the bilateral lower lobe segmental and subsegmental arteries as well as subsegmental arteries in the lingula and right middle lobe. As No CT evidence of acute pulmonary embolus in the adequately visualized pulmonary arteries. No acute process detected in the chest. Abdomen/Pelvis CT 03/26/24 17:24 IMPRESSION: Striated appearing nephrograms which can occur with acute pyelonephritis, acute tubular necrosis, and hypotension. No signs of obstruction or medullary sponge kidney. Labs Labs: Laboratory Results - last 24 hr 03/26/24 03/26/24 03/26/24 13:01 13:46 14:41 WBC 12.6 H RBC 4.62 Hgb 13.3 L Hct 40.9 L MCV 88.5 MCH 28.8 MCHC 32.5 RDW 14.0 Plt Count 329 MPV 9.7 Immature Gran % (Auto) 1.3 H Neut % (Auto) 78.6 H Lymph % (Auto) 9.8 L [place] % (Auto) 8.9 H Eos % (Auto) 1.0 Baso % (Auto) 0.4 Lymph # (Auto) 1.23 [place] # (Auto) 1.1 H Eos # (Auto) 0.1 Baso # (Auto) 0.1 Abs Immat Gran (auto) 0.16 H Absolute Neuts (auto) 9.9 H Absolute Nucleated RBC 0.000 Nucleated RBC % 0.0 Sodium 136 L Potassium 3.6 Chloride 103 Carbon Dioxide 21 L Anion Gap 12 BUN 35 H Creatinine 2.40 H Estim Creat Clear Calc 23 Estimated GFR 26 L Glucose 171 H POC Capillary Glucose Lactic Acid 0.9 Calcium 9.3 Magnesium 1.4 L Total Bilirubin 1.0 AST 23 ALT 14 Alkaline Phosphatase 132 H Total Protein 7.0 Albumin 3.9 Lipase 65 Urine Color Urine Appearance Urine pH Ur Specific [place] Urine Protein Urine Glucose (UA) Urine Ketones Ur Blood (Man) Urine Nitrate Urine Bilirubin Urine Urobilinogen Add Ur Microanalysis Leukocyte Esterase Rfl Urine RBC Urine WBC Ur Squamous Epith Cells Urine Bacteria Urine Casts Influenza A (RT-PCR) Negative Influenza B (RT-PCR) Negative RSV (RT-PCR) Negative SARS-CoV-2 RNA (RT-PCR) Negative 03/26/24 03/26/24 03/27/24 17:45 20:37 06:52 WBC RBC Hgb Hct MCV MCH MCHC RDW Plt Count MPV Immature Gran % (Auto) Neut % (Auto) Lymph % (Auto) [place] % (Auto) Eos % (Auto) Baso % (Auto) Lymph # (Auto) [place] # (Auto) Eos # (Auto) Baso # (Auto) Abs Immat Gran (auto) Absolute Neuts (auto) Absolute Nucleated RBC Nucleated RBC % Sodium Potassium Chloride Carbon Dioxide Anion Gap BUN Creatinine 3.30 H Estim Creat Clear Calc 17 Estimated GFR 18 L Glucose POC Capillary Glucose 140 H Lactic Acid Calcium Magnesium Total Bilirubin AST ALT Alkaline Phosphatase Total Protein Albumin Lipase Urine Color Yellow Urine Appearance Cloudy H Urine pH 5.5 Ur Specific [place] 1.018 Urine Protein 2+ H Urine Glucose (UA) Negative Urine Ketones 1+ H Ur Blood (Man) Negative Urine Nitrate Negative Urine Bilirubin Negative Urine Urobilinogen 0.2 Add Ur Microanalysis Reviewed Leukocyte Esterase Rfl Negative Urine RBC 0-2 Urine WBC 0-5 Ur Squamous Epith Cells None seen Urine Bacteria None seen Urine Casts >20 Influenza A (RT-PCR) Influenza B (RT-PCR) RSV (RT-PCR) SARS-CoV-2 RNA (RT-PCR) 03/27/24 03/27/24 07:31 11:14 WBC RBC Hgb Hct MCV MCH MCHC RDW Plt Count MPV Immature Gran % (Auto) Neut % (Auto) Lymph % (Auto) [place] % (Auto) Eos % (Auto) Baso % (Auto) Lymph # (Auto) [place] # (Auto) Eos # (Auto) Baso # (Auto) Abs Immat Gran (auto) Absolute Neuts (auto) Absolute Nucleated RBC Nucleated RBC % Sodium Potassium Chloride Carbon Dioxide Anion Gap BUN Creatinine Estim Creat Clear Calc Estimated GFR Glucose POC Capillary Glucose 171 H 200 H Lactic Acid Calcium Magnesium Total Bilirubin AST ALT Alkaline Phosphatase Total Protein Albumin Lipase Urine Color Urine Appearance Urine pH Ur Specific [place] Urine Protein Urine Glucose (UA) Urine Ketones Ur Blood (Man) Urine Nitrate Urine Bilirubin Urine Urobilinogen Add Ur Microanalysis Leukocyte Esterase Rfl Urine RBC Urine WBC Ur Squamous Epith Cells Urine Bacteria Urine Casts Influenza A (RT-PCR) Influenza B (RT-PCR) RSV (RT-PCR) SARS-CoV-2 RNA (RT-PCR) Quality VTE Prophylaxis VTE prophylaxis: pharmacologic ordered Hospitalist MIPS Advance Care Plan I have confirmed that the patient's Advanced Care Plan is present, code status is documented, or surrogate decision maker is listed in patient medical record.: Yes Medication Reconciliation I have utilized all available resources to obtain, update and review the patients current medications (includes all prescriptions, OTC, herbals, cannabis, and nutritional supplements).: Yes
[2024-03-27] MEDS: INSULIN ASPART (*BKC) 100 UNITS/ML SUB-Q (12:12)
[2024-03-27 16:30] LABS: Glucose Point of Care 202 mg/dl (65-105)
[2024-03-27] MEDS: INSULIN ASPART (*BKC) 100 UNITS/ML 7 UNITS SUB-Q (17:49)
[2024-03-27] MEDS: CEFEPIME 2 GM/NS 50 ML 2 GM/50 ML BAG IVPB (17:50)
[2024-03-27] MEDS: DORZOLAMIDE/TIMOLOL OPHTH SOL 10 ML BOTTLE 1 DROP EACH EYE (20:39)
[2024-03-27 21:31] LABS: Glucose Point of Care 203 mg/dl (65-105)
[2024-03-27] MEDS: INSULIN GLARGINE (*BKC) 100 UNITS/ML 28 UNITS SUB-Q (21:57)
[2024-03-28] VITALS (16 sets, daily range): BP systolic 120–144; BP diastolic 74–83; PULSE 70–93; RESP 16–20; TEMP 36.1–36.9; O2SAT 95–100
[2024-03-28 01:23] LABS: Glucose Point of Care 198 mg/dl (65-105)
[2024-03-28] MEDS: IPRATROPIUM 0.5 MG/ALBUTEROL SULFATE 2.5 MG AMPUL.NEB 3 ML INHALATION ×4 (03:19→20:52)
[2024-03-28 06:27] LABS: Estimated CRCL calculation 17 ml/min; Estimated Glomerular Filt Rate 19
[2024-03-28 06:38] LABS: Vancomycin Random 13.3 ug/mL (10-20)
[2024-03-28 07:12] LABS: Anion Gap 5 mmol/L (4-12); Blood Urea Nitrogen 48 mg/dL (9-20); Calcium 7.9 mg/dL (8.4-10.2); Carbon Dioxide 23 mmol/L (22-30); Chloride 105 mmol/L (98-107); Estimated CRCL calculation 17 ml/min; Estimated Glomerular Filt Rate 18; Glucose 174 mg/dL (65-110); Potassium 4.3 mmol/L (3.4-5.0); Sodium 133 mmol/L (137-145)
[2024-03-28 08:00] LABS: Glucose Point of Care 177 mg/dl (65-105)
[2024-03-28] MEDS: ENOXAPARIN 30 MG/0.3 ML SYRINGE SUB-Q (08:25)
[2024-03-28] MEDS: predniSONE 5 MG TABLET PO ×2 (08:26→20:34)
[2024-03-28] MEDS: PANTOPRAZOLE 40 MG TABLET PO (08:26)
[2024-03-28] MEDS: carvediloL 12.5 MG TABLET PO ×2 (08:26→20:34)
[2024-03-28] MEDS: DORZOLAMIDE/TIMOLOL OPHTH SOL 10 ML BOTTLE 1 DROP EACH EYE ×2 (08:27→20:34)
[2024-03-28] MEDS: VANCOMYCIN 1,500 MG/NS 500 ML 1,500 MG/500 ML BAG 250 MG IVPB (08:53)
[2024-03-28] MEDS: INSULIN ASPART (*BKC) 100 UNITS/ML 7 UNITS SUB-Q ×3 (08:54→17:13)
--- NOTE | 2024-03-28 09:20 | P.CONNP_ITS ---
Assessment and Plan Assessment and plan (1) GABRIELA (acute kidney injury): Code(s): N17.9 - Acute kidney failure, unspecified Status: Acute Assessment and Plan: * close to baseline on admission * deterioration noted 24 hours later (from 2.4 --> 3.3mg/dl on 03/27/24) * suspect due to several issues: * prerenal factors (nausea/vomiting/diarrhea on admission) * relative hypotension (210 systolic in ER but dropped to 80s) * infection/early sepsis (pyelonephritis) * contrast exposure (CTA of chest on 03/26) * SARAH-I + diuretic use prior to admission * check urine studies and CPK as well as renal ultrasound * hold lisinopril and diuretics * follow repeat labs and UOP (2) Stage 3b chronic kidney disease: Code(s): N18.32 - Chronic kidney disease, stage 3b Status: Acute Assessment and Plan: * baseline creatinine seems to run ~ 1.9 - 2.3mg/dl since 2021 * this causes him to fluctuate between CKD stage 3B and stage 4 * last outpatient creatinine about in January 2024 was 1.93mg/dl * CKD likely secondary to HTN, diabetes, vascular disease, and age-related change * follows with [facility] (Dr. Lin Guerrero) (3) Pyelonephritis: Code(s): N12 - Tubulo-interstitial nephritis, not specified as acute or chronic Status: Acute Assessment and Plan: * suggestive by admission CT scan * follow culture data - negative to date * on antibiotics * continue supportive therapy (4) Shortness of breath: Code(s): R06.02 - Shortness of breath Status: Acute Assessment and Plan: * etiology? * imaging noted: * CTA chest negative for PE or other acute pathology * CXR negative. * due to reactive airway disease versus known history of COPD * on RA with stable oxygen saturations * follow respiratory status (5) Anemia: Code(s): D64.9 - Anemia, unspecified Status: Acute Assessment and Plan: * presumably related to GABRIELA and acute illness * follow trend of H/H (6) Hypertension: Code(s): I10 - Essential (primary) hypertension Status: Chronic Assessment and Plan: * reasonable control at this time * off SARAH-I and diuretics due to #1 * follow trend of hemodynamics (7) Type 2 diabetes mellitus: Code(s): E11.9 - Type 2 diabetes mellitus without complications Status: Chronic Assessment and Plan: * follow accu-cheks * glycemic control per hospitalists I will continue to follow the patient with you while he remains hospitalized and make further recommendations as deemed necessary. Thank you for allowing me to participate in the care of this patient. History of Present Illness Reason for Consult Consult date: 03/28/24 Reason for consult: acute renal failure (on chronic kidney disease) Chief Complaint Chief complaint: Sepsis History of Present Illness Narrative: The patient is an 83-year-old male a past medical history as outlined who presented to [facility] Emergency with complaints generalized weakness. The patient reports that he has been having some issues with nausea, vomiting, and diarrhea her last several days. Associated symptoms of also include mild shortness of breath as well. Because of his GI symptoms, he has not been eating and drinking very much either. He denies any fevers, chills, chest pain, abdominal pain, dysuria, melena, or hematochezia. As the symptoms seem to be progressively worsened, he presented to the emergency room for further assessment. Workup and evaluation emergency room demonstrated the patient to be tachycardic, tachypneic, and febrile. His oxygen saturations appear to be stable but he stated he felt better after being placed on oxygen by nasal cannula. Routine blood test demonstrated labs consistent with his known history of chronic kidney disease although his creatinine was a bit higher at 2.4 mg/dL. His CBC showed elevated white blood cell count 12.6 but no other significant abnormalities. His lactic acid was normal and viral testing for influenza/RSV/COVID was negative. Subsequent imaging included a CTA of his chest demonstrated no acute abnormalities or evidence of a PD and a CT scan of the abdomen pelvis demonstrated possible pyelonephritis more acute tubular necrosis based on appearance of his kidneys. Given the concerns for overt sepsis, he was initiated on aggressive IV fluids and after appropriate cultures were obtained, initiated on broad-spectrum antibiotics. He was subsequently admitted to the hospital further evaluation therapy. Since his admission, he states he feels somewhat better but still has on issues with shortness of breath. More concerning is the fact that his renal function has deteriorated in the last 24 hours since his hospitalization began. Renal consultation was requested due to his acute kidney injury/acute renal failure on top of his baseline chronic kidney disease. The patient normally follows with [facility] for management of his chronic kidney disease. From review of the records via [facility], his baseline creatinine normally runs around 1.9 - 2.3 mg/dL since 2021 causing him to fluctuate between CKD stage IIIB and stage IV. The presumed etiology of his baseline chronic kidney disease is diabetes, hypertension, vascular disease, and age-related change. On admission to the hospital, his creatinine was 2.4mg/dl. Approximately 24 hours after admission, his creatinine worsened to 3.3mg/dl and has remained there by repeat labs this morning. He has no critical electrolyte abnormalities, worsening acidosis, volume overload, or evidence of uremia. Currently, the time my visit, he does not appear to be acute distress. Review of Systems 2 Review of Systems: As per HPI. 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 Code status: Full code. Years smoked: 65 Smoking status: Current every day smoker Tobacco type: cigarettes Second hand tobacco smoke exposure: Yes Alcohol intake: current Drinks per week: 4 Substance use: current Substance use type: marijuana Last use: 07/30/2023 Do You Feel Safe in your Home?: Yes Lack of Transportation: No Lack of Food: Never True Current Housing: I Have Housing Concerned About Future Housing: No Difficulty Paying Gas/Electric Bills: No Difficulty Paying for Meds: No Currently Unemployed: No Education: Master's Degree or Higher Difficulty w/ Childcare or Family Care: No Additional living arrangements comments: Lives with spouse in [place]. Additional occupation/education comments: Retired. Spiritual care concerns: No Meds Home Medications and Allergies Home Medications ?Medication ?Instructions ?Recorded ?Confirmed ?Type amlodipine 2.5 mg tablet (Norvasc) 2.5 mg PO DAILY 06/19/22 03/31/24 History carvedilol 12.5 mg tablet 25 mg PO BID 06/19/22 03/31/24 History insulin aspart U-100 100 unit/mL 8 unit subcut TID 06/19/22 03/31/24 History (3 mL) subcutaneous pen (Novolog FlexPen U-100 Insulin aspart) insulin glargine 100 unit/mL (3 28 unit subcut QHS 06/19/22 03/31/24 History mL) subcutaneous pen (Lantus Solostar U-100 Insulin) oxycodone 5 mg tablet 5 mg PO PRN PRN Pain 06/19/22 03/31/24 History pantoprazole 40 mg tablet,delayed 40 mg PO DAILY 06/19/22 03/31/24 History release pravastatin 20 mg tablet 20 mg PO DAILY 06/19/22 03/31/24 History sitagliptin phosphate 25 mg tablet 25 mg PO DAILY 06/19/22 03/31/24 History (Januvia) timolol maleate 0.5 % eye gel 1 drp EACH EYE BID 06/19/22 03/31/24 History forming solution albuterol sulfate 90 mcg/actuation 2 puff inhalation QID PRN 06/21/22 03/31/24 Rx aerosol inhaler shortness of breath or wheezing #8.5 grams apixaban 2.5 mg tablet (Eliquis) 2.5 mg PO Q12HR #60 tabs 08/08/23 03/31/24 Rx acetaminophen 500 mg tablet 1,000 mg (2 x 500 mg) PO TID PRN 11/02/23 03/31/24 Rx pain 7 days #42 tabs albuterol sulfate 90 mcg/actuation 1 inh inhalation QID #8.5 grams 11/02/23 03/31/24 Rx aerosol inhaler (Ventolin HFA) abiraterone 250 mg tablet 1,000 mg PO HS 03/26/24 03/26/24 History carvedilol 12.5 mg tablet 12.5 mg PO Q12H 03/26/24 03/26/24 History chlorthalidone 25 mg tablet 25 mg PO DAILY 03/26/24 03/26/24 History dorzolamide 22.3 mg-timolol 6.8 1 drp EACH EYE Q12H 03/26/24 03/26/24 History mg/mL eye drops fluoride (sodium) 1.1 % dental 1 applic dental Q24H 03/26/24 03/26/24 History cream (PreviDent 5000 Plus) insulin aspart U-100 100 unit/mL 1 sliding scale dose subcut TID 03/26/24 03/26/24 History (3 mL) subcutaneous pen (Novolog FlexPen U-100 Insulin aspart) insulin glargine 100 unit/mL (3 28 unit subcut QPM 03/26/24 03/26/24 History mL) subcutaneous pen (Lantus Solostar U-100 Insulin) lisinopril 20 mg tablet 40 mg PO DAILY 03/26/24 03/26/24 History oxycodone 5 mg tablet 5 mg PO Q6H PRN pain 03/26/24 03/26/24 History pantoprazole 40 mg tablet,delayed 40 mg PO DAILY 03/26/24 03/26/24 History release pravastatin 20 mg tablet 20 mg PO DAILY 03/26/24 03/26/24 History prednisone 5 mg tablet 5 mg PO Q12H 03/26/24 03/26/24 History sitagliptin phosphate 25 mg tablet 25 mg PO DAILY 03/26/24 03/26/24 History (Januvia) lisinopril 40 mg tablet 40 mg PO DAILY 03/31/24 03/31/24 History Allergies Allergy/AdvReac Type Severity Reaction Status Date / Time No Known Drug Allergies Allergy Unknown Other Verified 03/27/24 09:32 Vital Signs Vital Signs Temp Pulse Resp BP Pulse Ox O2 Del Method O2 Flow Rate 03/28/24 08:26 80 03/28/24 08:01 75 20 03/28/24 07:47 77 20 03/28/24 07:47 77 20 96 Room Air 03/28/24 06:00 97.0 F L 79 20 139/74 100 03/28/24 04:00 75 03/27/24 21:59 97.3 F L 75 20 119/71 100 03/27/24 20:30 75 16 100/58 L 99 03/27/24 20:00 78 03/27/24 20:00 98 Nasal Cannula 2 03/27/24 16:00 83 03/27/24 14:00 97.4 F L 70 18 93 03/27/24 12:00 73 Exam 2 Narrative: GENERAL APPEARANCE: elderly but well developed well nourished male in no acute distress HEENT: normocephalic, atraumatic, normal conjunctiva and sclera, nares patient NECK: no lymphadenopathy, thyromegaly, or JVD MOUTH: normal lips, teeth, and gums CARDIOVASCULAR: RRR, normal S1 and S2, no rub RESPIRATORY: coarse breath sounds ABDOMEN: soft, nontender, nondistended, positive bowel sounds present EXTREMITIES: no evidence of cyanosis, clubbing, or edema NEUROLOGICAL: alert and oriented x 3; CN II - XII intact bilaterally; no focal deficits noted Results Lab Results 04/01/24 06:12 03/31/24 06:08 Lab results: Laboratory Tests 03/28/24 05:57 Sodium 133 L Potassium 4.3 Chloride 105 Carbon Dioxide 23 Anion Gap 5 BUN 48 H D Creatinine 3.30 H Estim Creat Clear Calc 17 Estimated GFR 18 L Glucose 174 H Calcium 7.9 L Microbiology 03/26/24 14:41 Blood Blood Culture - Preliminary 03/26/24 14:41 Blood Blood Culture - Preliminary
[2024-03-28 11:58] LABS: Glucose Point of Care 230 mg/dl (65-105)
[2024-03-28 12:42] LABS: Creatinine Urine 90.1 mg/dL; Total Protein Urine Random 47 mg/dL; Ur Ttl Prot Creatinine Ratio 0.52 mg/mg (0-0.20)
[2024-03-28 12:45] LABS: Total Protein Urine Random 47 mg/dL; Urea Random Urine 449 MG/DL
--- NOTE | 2024-03-28 12:45 | P.PNIM_ITS ---
Progress Note: A&P Assessment and Plan (1) Pyelonephritis: Code(s): N12 - Tubulo-interstitial nephritis, not specified as acute or chronic Status: Acute Assessment and Plan: - patient on cefepime and vancomycin - awaiting blood and urine cultures. - Nephro consulted for GABRIELA on CKD. - Continue to follow cultures. (2) Acute hypoxic respiratory failure: Code(s): J96.01 - Acute respiratory failure with hypoxia Status: Acute Assessment and Plan: - Unclear etiology. - CTA chest negative for PE or other acute. - CXR negative. - Possibly CHF vs other. - Currently on RA with O2 sats > 90 %. - Avoid lasix for now with GABRIELA on CKD. - Monitor progress. (3) GABRIELA (acute kidney injury): Code(s): N17.9 - Acute kidney failure, unspecified Status: Acute Assessment and Plan: - GABRIELA on CKD. - Possibly related to infection. - Follows up with histology aide outpatient. - Cr levels slightly improved today. - holding losartan - holding chlorthalidone - Family Service Assistant following. - Avoid nephrotoxins. - Meds dosing per renal function. (4) Diarrhea: Code(s): R19.7 - Diarrhea, unspecified Status: Acute Assessment and Plan: - Unclear etiology. - No episodes today per patient. - Continue to monitor for now. (5) Febrile illness: Code(s): R50.9 - Fever, unspecified Status: Acute Assessment and Plan: - likely secondary to 1. - Appears resolved with abx therapy. (6) SIRS (systemic inflammatory response syndrome): Code(s): R65.10 - Systemic inflammatory response syndrome (SIRS) of non-infectious origin without acute organ dysfunction Status: Acute Assessment and Plan: - Likely related to # 1. - Lactic acid wnl. - Continue supportive care with IV abx. (7) T2DM (type 2 diabetes mellitus): Code(s): E11.9 - Type 2 diabetes mellitus without complications Status: Acute Assessment and Plan: - Blood glucose levels improving. - Prandial insulin slightly adjusted. - Continue to adjust insulin as needed. - Continue carb consistent diet (8) Hypomagnesemia: Code(s): E83.42 - Hypomagnesemia Status: Acute Assessment and Plan: replace as needed Time Spent With Patient Time with patient: 15 - 25 minutes Subjective Date/time seen: 03/28/24 11:45 Patient states he feels alright and has been ambulating hallways with walker and tolerating well. Interval history: Patient calm on bedrest and looks to be in no acute distress. Review of Systems Review of Systems: All systems reviewed & are unremarkable except as noted in HPI and below Exam Narrative: General: Well appearing, no acute distress. HEENT: Atraumatic, PERRL, EOM, moist mucosa. NECK: Supple. Lungs: Clear bilaterally. HEART: RRR, no murmurs. Abdomen: Soft, non-tender, non-distended, +ve bowels X4 quadrants. Extremities: Acyanotic, no edema. Skin: Warm and dry. No lesions. Neuro: Well oriented. CN II-XII grossly intact. Psych: Calm and co-operative. Objective Data Vital Signs Vital Signs: Vital Signs - 24 hr 03/27/24 14:00 03/27/24 16:00 03/27/24 20:00 Temperature 97.4 F L Pulse Rate 70 83 Respiratory Rate 18 Blood Pressure Pulse Oximetry 93 98 Oxygen Delivery Nasal Cannula Oxygen Flow Rate 2 03/27/24 20:00 03/27/24 20:30 03/27/24 21:59 Temperature 97.3 F L Pulse Rate 78 75 75 Respiratory Rate 16 20 Blood Pressure 100/58 L 119/71 Pulse Oximetry 99 100 Oxygen Delivery Oxygen Flow Rate 03/28/24 04:00 03/28/24 06:00 03/28/24 07:47 Temperature 97.0 F L Pulse Rate 75 79 77 Respiratory Rate 20 20 Blood Pressure 139/74 Pulse Oximetry 100 96 Oxygen Delivery Room Air Oxygen Flow Rate 03/28/24 07:47 03/28/24 08:00 03/28/24 08:00 Temperature Pulse Rate 77 70 Respiratory Rate 20 Blood Pressure Pulse Oximetry 95 Oxygen Delivery Room Air Oxygen Flow Rate 03/28/24 08:01 03/28/24 08:26 03/28/24 12:00 Temperature Pulse Rate 75 80 91 Respiratory Rate 20 Blood Pressure Pulse Oximetry Oxygen Delivery Oxygen Flow Rate Intake/Output Intake/Output: Intake & Output 03/25/24 03/26/24 03/27/24 03/28/24 23:59 23:59 23:59 23:59 Intake Total 3300 970 760 Output Total 300 200 Balance 3000 770 760 Meds/Results Medications: Active Medications Generic Name Dose Route Start Last Admin Trade Name Josefa PRN Reason Stop Dose Admin Albuterol/Ipratropium 3 ml 03/27/24 00:03 03/28/24 07:45 Ipratropium 0.5 Mg/Albuterol Sulfate 2.5 Mg Ampul.Neb 3 Ml INHALATION 3 ml Q6HRT PJ Administration Carvedilol 12.5 mg 03/26/24 09:00 03/28/24 08:26 Carvedilol 12.5 Mg Tablet PO 12.5 mg Q12HR PJ Administration Dorzolamide/Timolol 1 drop 03/26/24 22:25 03/28/24 08:27 Dorzolamide/Timolol Ophth Sarah 10 Ml Bottle EACH EYE 1 drop Q12HR PJ Administration Enoxaparin Sodium 30 mg 03/28/24 09:00 03/28/24 08:25 Enoxaparin 30 Mg/0.3 Ml Syringe SUB-Q 30 mg DAILY PJ Administration Cefepime HCl 2 gm in 50 mls @ 100 mls/hr 03/27/24 17:00 03/27/24 17:50 Maxipime 2 Gm/Ns 50 Ml IVPB 100 mls/hr Q24H PJ Administration Insulin Aspart 7 units 03/27/24 17:00 03/28/24 12:20 Insulin Aspart (*Bkc) 100 Units/Ml SUB-Q 7 units TIDWM PJ Administration Insulin Glargine 28 units 03/26/24 22:35 03/27/24 21:57 Insulin Glargine (*Bkc) 100 Units/Ml SUB-Q 28 units QHS PJ Administration Miscellaneous Information 1 each 03/26/24 00:01 (Fluoride (Sodium) [Prevident 5000 Plus] 1.1 % Cream) Is Nonformulary, Can Patient Bring F XX 04/25/24 00:00 CLARIFY PJ Miscellaneous Information 1 each 03/26/24 00:01 (Abiraterone 250 Mg Tablet) Is Nonformulary, Can Patient Bring From Home? XX 04/25/24 00:00 CLARIFY PJ Non-Formulary Medication 1,000 mg 03/27/24 21:00 Abiraterone PO 04/26/24 20:59 HS PJ Non-Formulary Medication 1 applic 03/26/24 22:30 Fluoride (Sodium) [Prevident 5000 Plus] DENTAL 04/25/24 22:29 Q24H PJ Oxycodone HCl 5 mg 03/26/24 22:22 Oxycodone Hcl (*Crx) 5 Mg Tab Ir PO Q6H PRN pain Pantoprazole Sodium 40 mg 03/27/24 09:00 03/28/24 08:26 Pantoprazole 40 Mg Tablet PO 40 mg DAILY PJ Administration Prednisone 5 mg 03/26/24 22:25 03/28/24 08:26 Prednisone 5 Mg Tablet PO 5 mg Q12HR PJ Administration Vancomycin HCl 1 each 03/27/24 08:02 Vancomycin For Acute Kidney Injury IVPB PRN PRN Vancomycin Protocol Radiology Results: ITS Impressions Chest X-Ray 03/26/24 13:57 Impression: Clear lungs. Chest CTA 03/26/24 15:51 IMPRESSION: Motion limited examination. Suboptimal visualization of the bilateral lower lobe segmental and subsegmental arteries as well as subsegmental arteries in the lingula and right middle lobe. As No CT evidence of acute pulmonary embolus in the adequately visualized pulmonary arteries. No acute process detected in the chest. Abdomen/Pelvis CT 03/26/24 17:24 IMPRESSION: Striated appearing nephrograms which can occur with acute pyelonephritis, acute tubular necrosis, and hypotension. No signs of obstruction or medullary sponge kidney. Labs Labs: Laboratory Results - last 24 hr 03/27/24 03/27/24 03/28/24 16:26 21:28 01:14 Sodium Potassium Chloride Carbon Dioxide Anion Gap BUN Creatinine Estim Creat Clear Calc Estimated GFR Glucose POC Capillary Glucose 202 H 203 H 198 H Calcium U Random Total Protein Urine Creatinine Random Vancomycin 03/28/24 03/28/24 03/28/24 05:57 06:01 07:54 Sodium 133 L Potassium 4.3 Chloride 105 Carbon Dioxide 23 Anion Gap 5 BUN 48 H D Creatinine 3.30 H 3.20 H Estim Creat Clear Calc 17 17 Estimated GFR 18 L 19 L Glucose 174 H POC Capillary Glucose 177 H Calcium 7.9 L U Random Total Protein Urine Creatinine Random Vancomycin 13.3 03/28/24 03/28/24 11:56 12:26 Sodium Potassium Chloride Carbon Dioxide Anion Gap BUN Creatinine Estim Creat Clear Calc Estimated GFR Glucose POC Capillary Glucose 230 H Calcium U Random Total Protein 47 Urine Creatinine 90.1 Random Vancomycin Quality VTE Prophylaxis VTE prophylaxis: pharmacologic ordered Hospitalist [facility] Advance Care Plan I have confirmed that the patient's Advanced Care Plan is present, code status is documented, or surrogate decision maker is listed in patient medical record.: Yes Medication Reconciliation I have utilized all available resources to obtain, update and review the patients current medications (includes all prescriptions, OTC, herbals, cannabis, and nutritional supplements).: Yes
[2024-03-28 12:54] LABS: Sodium Urine Random 47 meq/L
[2024-03-28 13:24] LABS: Eosinophil Urine None Seen % (None Seen)
[2024-03-28 13:26] LABS: Urine Eos QC 2nd Tech Confirmed
[2024-03-28 16:39] LABS: Glucose Point of Care 143 mg/dl (65-105)
[2024-03-28] MEDS: CEFEPIME 2 GM/NS 50 ML 2 GM/50 ML BAG IVPB (16:46)
[2024-03-28] MEDS: INSULIN GLARGINE (*BKC) 100 UNITS/ML 28 UNITS SUB-Q (21:33)
[2024-03-29] VITALS (15 sets, daily range): BP systolic 131–165; BP diastolic 60–77; PULSE 66–89; RESP 16–20; TEMP 36–36.4; O2SAT 93–100
[2024-03-29 02:49] LABS: Glucose Point of Care 149 mg/dl (65-105)
[2024-03-29 05:25] LABS: Glucose Point of Care 154 mg/dl (65-105)
[2024-03-29 07:00] LABS: Hematocrit 30.9 % (42.0-52.0); Hemoglobin 9.9 g/dL (14.0-18.0); Mean Corpuscular Hemoglobin 28.6 pg (26-34); Mean Corpuscular Volume 89.3 fl (80-100); Mean Platelet Volume 9.7 fl (7.4-10.4); Platelet Count Result 308 k/mm3 (150-375); Red Blood Count 3.46 M/mm3 (4.6-6.20); Red Cell Distribution Width 13.9 % (11.5-14.5); White Blood Count 9.1 K/mm3 (4.5-10.0)
[2024-03-29 07:09] LABS: Alanine Aminotransferase 15 U/L (6-50); Albumin Level 3.1 g/dL (3.5-5.1); Alkaline Phosphatase 96 U/L (38-126); Anion Gap 3 mmol/L (4-12); Aspartate Amino Transferase 25 U/L (17-59); Bilirubin,Total 0.4 mg/dL (0.2-1.3); Blood Urea Nitrogen 44 mg/dL (9-20); Calcium 8.4 mg/dL (8.4-10.2); Carbon Dioxide 24 mmol/L (22-30); Chloride 107 mmol/L (98-107); Estimated CRCL calculation 19 ml/min; Estimated Glomerular Filt Rate 21; Glucose 134 mg/dL (65-110); Phosphorus 3.7 mg/dL (2.5-4.5); Potassium 4.1 mmol/L (3.4-5.0); Sodium 134 mmol/L (137-145)
[2024-03-29] MEDS: IPRATROPIUM 0.5 MG/ALBUTEROL SULFATE 2.5 MG AMPUL.NEB 3 ML INHALATION ×3 (07:23→20:02)
[2024-03-29 07:26] LABS: Vancomycin Random 17.9 ug/mL (10-20)
[2024-03-29 07:57] LABS: Glucose Point of Care 126 mg/dl (65-105)
[2024-03-29] MEDS: DORZOLAMIDE/TIMOLOL OPHTH SOL 10 ML BOTTLE 1 DROP EACH EYE ×2 (08:42→20:27)
[2024-03-29] MEDS: carvediloL 12.5 MG TABLET PO ×2 (08:42→20:26)
[2024-03-29] MEDS: VANCOMYCIN 1,500 MG/NS 500 ML 1,500 MG/500 ML BAG 250 MG IVPB (08:42)
[2024-03-29] MEDS: PANTOPRAZOLE 40 MG TABLET PO (08:42)
[2024-03-29] MEDS: predniSONE 5 MG TABLET PO ×2 (08:42→20:26)
[2024-03-29] MEDS: ENOXAPARIN 30 MG/0.3 ML SYRINGE SUB-Q (08:44)
[2024-03-29] MEDS: INSULIN ASPART (*BKC) 100 UNITS/ML 7 UNITS SUB-Q ×3 (08:47→17:44)
--- NOTE | 2024-03-29 10:26 | P.PNIM_ITS ---
Progress Note: A&P Assessment and Plan (1) Pyelonephritis: Code(s): N12 - Tubulo-interstitial nephritis, not specified as acute or chronic Status: Acute Assessment and Plan: - patient antibiotic switched to Ceftriaxone 2 gm IVPB daily. - awaiting blood culture no growth to date. - Nephro consulted for GABRIELA on CKD. - Continue to follow cultures. (2) Acute hypoxic respiratory failure: Code(s): J96.01 - Acute respiratory failure with hypoxia Status: Acute Assessment and Plan: - Unclear etiology. - CTA chest negative for PE or other acute. - CXR negative. - Possibly CHF vs other. - Currently on RA with O2 sats > 90 %. - Avoid lasix for now with GABRIELA on CKD. - Monitor progress. (3) GABRIELA (acute kidney injury): Code(s): N17.9 - Acute kidney failure, unspecified Status: Acute Assessment and Plan: - GABRIELA on CKD. - Possibly related to infection. - Follows up with leather drier outpatient. - Cr levels slightly improved today, 2.90. - holding losartan - holding chlorthalidone - Clerical Proofreader following. - Avoid nephrotoxins. - Meds dosing per renal function. (4) Diarrhea: Code(s): R19.7 - Diarrhea, unspecified Status: Acute Assessment and Plan: - Unclear etiology. - No episodes today per patient. - Continue to monitor for now. (5) Febrile illness: Code(s): R50.9 - Fever, unspecified Status: Acute Assessment and Plan: - likely secondary to 1. - Appears resolved with abx therapy. (6) SIRS (systemic inflammatory response syndrome): Code(s): R65.10 - Systemic inflammatory response syndrome (SIRS) of non-infectious origin without acute organ dysfunction Status: Acute Assessment and Plan: - Likely related to # 1. - Lactic acid wnl. - Continue supportive care with IV abx. (7) T2DM (type 2 diabetes mellitus): Code(s): E11.9 - Type 2 diabetes mellitus without complications Status: Acute Assessment and Plan: - Blood glucose levels improving. - Prandial insulin slightly adjusted. - Continue to adjust insulin as needed. - Continue carb consistent diet (8) Hypomagnesemia: Code(s): E83.42 - Hypomagnesemia Status: Acute Assessment and Plan: -replace as needed -Currently 2.0. Subjective Date/time seen: 12/18/24 10:26 Interval history: Patient reports shortness of breath on exertion. Patient denies chest pain, palpitations, headache, dizziness, nausea, or vomiting. Review of Systems Review of Systems: All systems reviewed & are unremarkable except as noted in HPI and below Exam Const: General: comfortable and no acute distress Resp: Auscultation: wheezes expiratory wheezes and diminished lung sounds Cardio: Rate: regular rate Rhythm: regular rhythm Other: Telemetry SR 66 GI: GI Palp: Yes Soft to palpation Auscultation: normal bowel sounds Skin: General skin exam: no rashes or lesions noted Neuro: Speech: normal speech Extrem: General: no pedal edema Psych: Mental Status: mental status grossly normal Affect: normal affect Objective Data Vital Signs Vital Signs: Vital Signs - 24 hr 03/28/24 12:00 03/28/24 14:00 03/28/24 14:33 Temperature 97.4 F L Pulse Rate 91 91 91 Respiratory Rate 20 18 Blood Pressure 120/74 Pulse Oximetry 96 Oxygen Delivery 03/28/24 14:42 03/28/24 16:00 03/28/24 20:00 Temperature Pulse Rate 93 92 Respiratory Rate 18 Blood Pressure Pulse Oximetry Oxygen Delivery Room Air 03/28/24 20:00 03/28/24 20:34 03/28/24 20:53 Temperature Pulse Rate 92 93 Respiratory Rate Blood Pressure Pulse Oximetry 97 Oxygen Delivery 03/28/24 20:53 03/28/24 21:00 03/28/24 22:00 Temperature 98.4 F Pulse Rate 89 93 89 Respiratory Rate 16 16 18 Blood Pressure 144/83 H Pulse Oximetry 97 Oxygen Delivery 03/29/24 00:00 03/29/24 04:00 03/29/24 06:00 Temperature 97.5 F L Pulse Rate 89 74 70 Respiratory Rate 16 Blood Pressure 131/60 Pulse Oximetry 93 Oxygen Delivery 03/29/24 07:24 03/29/24 07:24 Temperature Pulse Rate 73 Respiratory Rate 18 Blood Pressure Pulse Oximetry 96 Oxygen Delivery Room Air Intake/Output Intake/Output: Intake & Output 03/26/24 03/27/24 03/28/24 03/29/24 23:59 23:59 23:59 23:59 Intake Total 3300 1020 2480 400 Output Total 300 200 700 Balance 3000 820 2480 -300 Meds/Results Medications: Active Medications Generic Name Dose Route Start Last Admin Trade Name Josefa PRN Reason Stop Dose Admin Albuterol/Ipratropium 3 ml 03/27/24 00:03 03/29/24 07:23 Ipratropium 0.5 Mg/Albuterol Sulfate 2.5 Mg Ampul.Neb 3 Ml INHALATION 3 ml Q6HRT PJ Administration Carvedilol 12.5 mg 03/26/24 09:00 03/29/24 08:42 Carvedilol 12.5 Mg Tablet PO 12.5 mg Q12HR PJ Administration Dorzolamide/Timolol 1 drop 03/26/24 22:25 03/29/24 08:42 Dorzolamide/Timolol Ophth Sarah 10 Ml Bottle EACH EYE 1 drop Q12HR PJ Administration Enoxaparin Sodium 30 mg 03/28/24 09:00 03/29/24 08:44 Enoxaparin 30 Mg/0.3 Ml Syringe SUB-Q 30 mg DAILY PJ Administration Vancomycin HCl 1,500 mg in 500 mls @ 250 mls/hr 03/29/24 09:00 03/29/24 08:42 Vancomycin 1,500 Mg/Ns 500 Ml IVPB 03/29/24 10:59 250 mls/hr ONCE ONE Administration Ceftriaxone Sodium 2 gm in 100 mls @ 200 mls/hr 03/29/24 16:00 Rocephin 2 Gm/Ns 100 Ml IVPB Q24H PJ Insulin Aspart 7 units 03/27/24 17:00 03/29/24 08:47 Insulin Aspart (*Bkc) 100 Units/Ml SUB-Q 7 units TIDWM PJ Administration Insulin Glargine 28 units 03/26/24 22:35 03/28/24 21:33 Insulin Glargine (*Bkc) 100 Units/Ml SUB-Q 28 units QHS PJ Administration Miscellaneous Information 1 each 03/26/24 00:01 (Fluoride (Sodium) [Prevident 5000 Plus] 1.1 % Cream) Is Nonformulary, Can Patient Bring F XX 04/25/24 00:00 CL[facility]IFY [facility] Miscellaneous Information 1 each 03/26/24 00:01 (Abiraterone 250 Mg Tablet) Is Nonformulary, Can Patient Bring From Home? XX 04/25/24 00:00 [facility]IFY [facility] Non-Formulary Medication 1,000 mg 03/27/24 21:00 Abiraterone PO 04/26/24 20:59 HS PJ Non-Formulary Medication 1 applic 03/26/24 22:30 Fluoride (Sodium) [Prevident 5000 Plus] DENTAL 04/25/24 22:29 Q24H PJ Oxycodone HCl 5 mg 03/26/24 22:22 Oxycodone Hcl (*Crx) 5 Mg Tab Ir PO Q6H PRN pain Pantoprazole Sodium 40 mg 03/27/24 09:00 03/29/24 08:42 Pantoprazole 40 Mg Tablet PO 40 mg DAILY PJ Administration Prednisone 5 mg 03/26/24 22:25 03/29/24 08:42 Prednisone 5 Mg Tablet PO 5 mg Q12HR PJ Administration Radiology Results: ITS Impressions Chest X-Ray 03/26/24 13:57 Impression: Clear lungs. Chest CTA 03/26/24 15:51 IMPRESSION: Motion limited examination. Suboptimal visualization of the bilateral lower lobe segmental and subsegmental arteries as well as subsegmental arteries in the lingula and right middle lobe. As No CT evidence of acute pulmonary embolus in the adequately visualized pulmonary arteries. No acute process detected in the chest. Abdomen/Pelvis CT 03/26/24 17:24 IMPRESSION: Striated appearing nephrograms which can occur with acute pyelonephritis, acute tubular necrosis, and hypotension. No signs of obstruction or medullary sponge kidney. Renal Ultrasound 03/28/24 13:46 IMPRESSION: No definite abnormality seen. Labs Labs: Laboratory Results - last 24 hr 03/28/24 03/28/24 03/28/24 11:56 12:26 12:26 WBC RBC Hgb Hct MCV MCH MCHC RDW Plt Count MPV Sodium Potassium Chloride Carbon Dioxide Anion Gap BUN Creatinine Estim Creat Clear Calc Estimated GFR Glucose POC Capillary Glucose 230 H Calcium Phosphorus Magnesium Total Bilirubin AST ALT Alkaline Phosphatase Total Protein Albumin Urine Eosinophils None seen U Random Total Protein 47 47 Ur Random Sodium 47 Ur Random Urea 449 Urine Creatinine 90.1 Protein/Creat Ratio 2 0.52 H Random Vancomycin 03/28/24 03/28/24 03/29/24 16:35 20:47 05:21 WBC RBC Hgb Hct MCV MCH MCHC RDW Plt Count MPV Sodium Potassium Chloride Carbon Dioxide Anion Gap BUN Creatinine Estim Creat Clear Calc Estimated GFR Glucose POC Capillary Glucose 143 H 149 H 154 H Calcium Phosphorus Magnesium Total Bilirubin AST ALT Alkaline Phosphatase Total Protein Albumin Urine Eosinophils U Random Total Protein Ur Random Sodium Ur Random Urea Urine Creatinine Protein/Creat Ratio 2 Random Vancomycin 03/29/24 03/29/24 06:07 07:50 WBC 9.1 RBC 3.46 L Hgb 9.9 L D Hct 30.9 L MCV 89.3 MCH 28.6 MCHC 32.0 RDW 13.9 Plt Count 308 MPV 9.7 Sodium 134 L Potassium 4.1 Chloride 107 Carbon Dioxide 24 Anion Gap 3 L BUN 44 H Creatinine 2.90 H Estim Creat Clear Calc 19 Estimated GFR 21 L Glucose 134 H POC Capillary Glucose 126 H Calcium 8.4 Phosphorus 3.7 Magnesium 2.0 Total Bilirubin 0.4 AST 25 ALT 15 Alkaline Phosphatase 96 Total Protein 6.0 L Albumin 3.1 L Urine Eosinophils U Random Total Protein Ur Random Sodium Ur Random Urea Urine Creatinine Protein/Creat Ratio 2 Random Vancomycin 17.9 Quality VTE Prophylaxis VTE prophylaxis: pharmacologic ordered
[2024-03-29 12:04] LABS: Glucose Point of Care 135 mg/dl (65-105)
--- NOTE | 2024-03-29 12:45 | P.PNNP_ITS ---
Progress Note: A&P Assessment and Plan (1) GABRIELA (acute kidney injury): Code(s): N17.9 - Acute kidney failure, unspecified Status: Acute Assessment and Plan: * better * close to baseline on admission * deterioration noted 24 hours later (from 2.4 --> 3.3mg/dl on 03/27/24) * suspect due to several issues: * prerenal factors (nausea/vomiting/diarrhea on admission) * relative hypotension (210 systolic in ER but dropped to 80s) * infection/early sepsis (pyelonephritis) * contrast exposure (CTA of chest on 03/26) * SARAH-I + diuretic use prior to admission * evaluation to date: * renal ultrasound normal * urine eosinophil negative * urine electrolytes prerenal (by FeUrea) * UA not indicative of infection * moderate proteinuria * holding lisinopril and diuretics at this time * follow trend repeat labs and UOP (2) Stage 3b chronic kidney disease: Code(s): N18.32 - Chronic kidney disease, stage 3b Status: Acute Assessment and Plan: * baseline creatinine seems to run ~ 1.9 - 2.3mg/dl since 2021 * this causes him to fluctuate between CKD stage 3B and stage 4 * last outpatient creatinine about in January 2024 was 1.93mg/dl * CKD likely secondary to HTN, diabetes, vascular disease, and age-related change * follows with [facility] (Dr. Lin Guerrero) (3) Pyelonephritis: Code(s): N12 - Tubulo-interstitial nephritis, not specified as acute or chronic Status: Acute Assessment and Plan: * suggestive by admission CT scan * follow culture data - negative to date * on antibiotics * continue supportive therapy (4) Shortness of breath: Code(s): R06.02 - Shortness of breath Status: Acute Assessment and Plan: * etiology? * imaging noted: * CTA chest negative for PE or other acute pathology * CXR negative. * due to reactive airway disease versus known history of COPD * on RA with stable oxygen saturations * follow respiratory status (5) Anemia: Code(s): D64.9 - Anemia, unspecified Status: Acute Assessment and Plan: * presumably related to GABRIELA and acute illness * follow trend of H/H (6) Hypertension: Code(s): I10 - Essential (primary) hypertension Status: Chronic Assessment and Plan: * reasonable control at this time * off SARAH-I and diuretics due to #1 * follow trend of hemodynamics (7) Type 2 diabetes mellitus: Code(s): E11.9 - Type 2 diabetes mellitus without complications Status: Chronic Assessment and Plan: * follow accu-cheks * glycemic control per hospitalists Will continue to follow Subjective Date/time seen: 03/29/24 12:45 Interval history: Follow-up for acute kidney injury/acute renal failure on chronic kidney disease. Overall, reports he is feeling better but reports shortness of breath with exertion; renal function/creatinine doing better with what appears adequate urine output; remains hemodynamically stable; no other issues/events overnight or earlier this morning. Exam 2 Narrative: General: elderly but WD/WN male in NAD Heart: normal S1 and S2; no rub Lungs: decreased throughout with some wheezes noted Abdomen: soft, nontender, nondistended, positive bowel sounds Extremities: no cyanosis or clubbing; no edema Skin: warm and dry Objective Data Vital Signs Vital Signs: Vital Signs Temp Pulse Resp BP Pulse Ox O2 Del Method 03/29/24 12:00 96.8 F L 66 20 157/66 H 100 03/29/24 08:00 Room Air 03/29/24 07:24 73 18 03/29/24 07:24 96 Room Air 03/29/24 06:00 97.5 F L 70 16 131/60 93 03/29/24 04:00 74 03/29/24 00:00 89 03/28/24 22:00 98.4 F 89 18 144/83 H 97 03/28/24 21:00 93 16 03/28/24 20:53 89 16 03/28/24 20:53 97 03/28/24 20:34 93 03/28/24 20:00 92 03/28/24 20:00 Room Air Intake/Output Intake/Output: Intake & Output 03/26/24 03/27/24 03/28/24 03/29/24 23:59 23:59 23:59 23:59 Intake Total 3300 1020 2480 876 Output Total 300 200 700 Balance 3000 820 2480 176 Meds/Results Medications: Active Medications Generic Name Dose Route Start Last Admin Trade Name Freq PRN Reason Stop Dose Admin Albuterol/Ipratropium 3 ml 03/27/24 00:03 03/29/24 14:21 Ipratropium 0.5 Mg/Albuterol Sulfate 2.5 Mg Ampul.Neb 3 Ml INHALATION 3 ml Q6HRT PJ Administration Carvedilol 12.5 mg 03/26/24 09:00 03/29/24 08:42 Carvedilol 12.5 Mg Tablet PO 12.5 mg Q12HR PJ Administration Dorzolamide/Timolol 1 drop 03/26/24 22:25 03/29/24 08:42 Dorzolamide/Timolol Ophth Sarah 10 Ml Bottle EACH EYE 1 drop Q12HR PJ Administration Enoxaparin Sodium 30 mg 03/28/24 09:00 03/29/24 08:44 Enoxaparin 30 Mg/0.3 Ml Syringe SUB-Q 30 mg DAILY PJ Administration Ceftriaxone Sodium 2 gm in 100 mls @ 200 mls/hr 03/29/24 16:00 03/29/24 15:15 Rocephin 2 Gm/Ns 100 Ml IVPB 200 mls/hr Q24H PJ Administration Insulin Aspart 7 units 03/27/24 17:00 03/29/24 12:13 Insulin Aspart (*Bkc) 100 Units/Ml SUB-Q 7 units TIDWM PJ Administration Insulin Glargine 28 units 03/26/24 22:35 03/28/24 21:33 Insulin Glargine (*Bkc) 100 Units/Ml SUB-Q 28 units QHS PJ Administration Miscellaneous Information 1 each 03/26/24 00:01 (Fluoride (Sodium) [Prevident 5000 Plus] 1.1 % Cream) Is Nonformulary, Can Patient Bring F XX 04/25/24 00:00 CLARIFY PJ Miscellaneous Information 1 each 03/26/24 00:01 (Abiraterone 250 Mg Tablet) Is Nonformulary, Can Patient Bring From Home? XX 04/25/24 00:00 CLARIFY PJ Non-Formulary Medication 1,000 mg 03/27/24 21:00 Abiraterone PO 04/26/24 20:59 HS PJ Non-Formulary Medication 1 applic 03/26/24 22:30 Fluoride (Sodium) [Prevident 5000 Plus] DENTAL 04/25/24 22:29 Q24H PJ Oxycodone HCl 5 mg 03/26/24 22:22 Oxycodone Hcl (*Crx) 5 Mg Tab Ir PO Q6H PRN pain Pantoprazole Sodium 40 mg 03/27/24 09:00 03/29/24 08:42 Pantoprazole 40 Mg Tablet PO 40 mg DAILY PJ Administration Prednisone 5 mg 03/26/24 22:25 03/29/24 08:42 Prednisone 5 Mg Tablet PO 5 mg Q12HR PJ Administration Radiology Results: ITS Impressions Chest X-Ray 03/26/24 13:57 Impression: Clear lungs. Chest CTA 03/26/24 15:51 IMPRESSION: Motion limited examination. Suboptimal visualization of the bilateral lower lobe segmental and subsegmental arteries as well as subsegmental arteries in the lingula and right middle lobe. As No CT evidence of acute pulmonary embolus in the adequately visualized pulmonary arteries. No acute process detected in the chest. Abdomen/Pelvis CT 03/26/24 17:24 IMPRESSION: Striated appearing nephrograms which can occur with acute pyelonephritis, acute tubular necrosis, and hypotension. No signs of obstruction or medullary sponge kidney. Renal Ultrasound 03/28/24 13:46 IMPRESSION: No definite abnormality seen. Labs Labs: Laboratory Tests 03/29/24 06:07 03/29/24 06:07 Calcium 8.4 Phosphorus 3.7 Magnesium 2.0 Total Bilirubin 0.4 AST 25 ALT 15 Alkaline Phosphatase 96 Total Protein 6.0 L Albumin 3.1 L Random Vancomycin 17.9
[2024-03-29] MEDS: cefTRIAXone 2 GM/NS 100 ML 2 GM/100 ML BAG IVPB (15:15)
[2024-03-29 18:48] LABS: Glucose Point of Care 101 mg/dl (65-105)
[2024-03-29] MEDS: INSULIN GLARGINE (*BKC) 100 UNITS/ML 28 UNITS SUB-Q (20:28)
[2024-03-29 21:00] LABS: Glucose Point of Care 151 mg/dl (65-105)
[2024-03-30] VITALS (17 sets, daily range): BP systolic 155–158; BP diastolic 67–89; PULSE 61–96; RESP 14–20; TEMP 36.2–36.4; O2SAT 93–97
[2024-03-30] MEDS: IPRATROPIUM 0.5 MG/ALBUTEROL SULFATE 2.5 MG AMPUL.NEB 3 ML INHALATION ×4 (02:02→20:46)
--- NOTE | 2024-03-30 06:59 | PHAR ---
home med verified Abiraterone 250mg tablets take 4 tablets daily
[2024-03-30 07:18] LABS: Hematocrit 31.8 % (42.0-52.0); Hemoglobin 10.1 g/dL (14.0-18.0); Mean Corpuscular HGB Conc 31.8 g/dl (32-36); Mean Corpuscular Hemoglobin 28.5 pg (26-34); Mean Corpuscular Volume 89.8 fl (80-100); Mean Platelet Volume 9.5 fl (7.4-10.4); Platelet Count Result 313 k/mm3 (150-375); Red Blood Count 3.54 M/mm3 (4.6-6.20); Red Cell Distribution Width 13.6 % (11.5-14.5)
[2024-03-30 07:27] LABS: Alanine Aminotransferase 15 U/L (6-50); Albumin Level 3.3 g/dL (3.5-5.1); Alkaline Phosphatase 99 U/L (38-126); Anion Gap 5 mmol/L (4-12); Aspartate Amino Transferase 19 U/L (17-59); Bilirubin,Total 0.5 mg/dL (0.2-1.3); Blood Urea Nitrogen 38 mg/dL (9-20); Calcium 8.8 mg/dL (8.4-10.2); Carbon Dioxide 26 mmol/L (22-30); Chloride 108 mmol/L (98-107); Estimated CRCL calculation 21 ml/min; Estimated Glomerular Filt Rate 24; Glucose 98 mg/dL (65-110); Magnesium 1.8 mg/dL (1.6-2.3); Phosphorus 3.2 mg/dL (2.5-4.5); Potassium 4.3 mmol/L (3.4-5.0); Sodium 139 mmol/L (137-145)
[2024-03-30 07:58] LABS: Glucose Point of Care 95 mg/dl (65-105)
[2024-03-30] MEDS: PANTOPRAZOLE 40 MG TABLET PO (08:54)
[2024-03-30] MEDS: predniSONE 5 MG TABLET PO ×2 (08:54→21:32)
[2024-03-30] MEDS: carvediloL 12.5 MG TABLET PO ×2 (08:54→21:32)
[2024-03-30] MEDS: DORZOLAMIDE/TIMOLOL OPHTH SOL 10 ML BOTTLE 1 DROP EACH EYE ×2 (08:55→21:33)
--- NOTE | 2024-03-30 09:52 | P.PNIM_ITS ---
Progress Note: A&P Assessment and Plan (1) Pyelonephritis: Code(s): N12 - Tubulo-interstitial nephritis, not specified as acute or chronic Status: Acute Assessment and Plan: - patient antibiotic switched to Ceftriaxone 2 gm IVPB daily. - awaiting blood culture no growth to date. - Nephro consulted for GABRIELA on CKD. - Continue to follow cultures. (2) Acute hypoxic respiratory failure: Code(s): J96.01 - Acute respiratory failure with hypoxia Status: Acute Assessment and Plan: - Unclear etiology. - CTA chest negative for PE or other acute. - CXR negative. - Possibly CHF vs other. - Currently on RA with O2 sats > 90 %. - Avoid lasix for now with GABRIELA on CKD. - Monitor progress. (3) GABRIELA (acute kidney injury): Code(s): N17.9 - Acute kidney failure, unspecified Status: Acute Assessment and Plan: - GABRIELA on CKD. - Possibly related to infection. - Follows up with metal mixer outpatient. - Cr levels slightly improved today, 2.60. - holding losartan - holding chlorthalidone - Global Compensation Analyst following. - Avoid nephrotoxins. - Meds dosing per renal function. (4) Diarrhea: Code(s): R19.7 - Diarrhea, unspecified Status: Acute Assessment and Plan: - Unclear etiology. - No episodes today per patient. - Continue to monitor for now. (5) Febrile illness: Code(s): R50.9 - Fever, unspecified Status: Acute Assessment and Plan: - likely secondary to 1. - Appears resolved with abx therapy. (6) SIRS (systemic inflammatory response syndrome): Code(s): R65.10 - Systemic inflammatory response syndrome (SIRS) of non-infectious origin without acute organ dysfunction Status: Acute Assessment and Plan: - Likely related to # 1. - Lactic acid wnl. - Continue supportive care with IV abx. (7) T2DM (type 2 diabetes mellitus): Code(s): E11.9 - Type 2 diabetes mellitus without complications Status: Acute Assessment and Plan: - Blood glucose levels improving. - Prandial insulin slightly adjusted. - Continue to adjust insulin as needed. - Continue carb consistent diet (8) Hypomagnesemia: Code(s): E83.42 - Hypomagnesemia Status: Acute Assessment and Plan: -replace as needed -Currently 1.8 Subjective Date/time seen: 03/30/24 09:52 Interval history: Patient reports episode of chills this morning, denies fever. Patient denies chest pain, palpitations, nausea, vomiting, or burning with urination. Review of Systems Review of Systems: All systems reviewed & are unremarkable except as noted in HPI and below Exam Const: General: comfortable and no acute distress Resp: Auscultation: diminished lung sounds Cardio: Rate: regular rate Rhythm: regular rhythm Other: Telemetry- SR 78 GI: GI Palp: Yes Soft to palpation Auscultation: normal bowel sounds Skin: General skin exam: no rashes or lesions noted Neuro: Speech: normal speech Extrem: General: no pedal edema Psych: Mental Status: mental status grossly normal Affect: normal affect Objective Data Vital Signs Vital Signs: Vital Signs - 24 hr 03/29/24 12:00 03/29/24 14:00 03/29/24 14:22 Temperature 96.8 F L Pulse Rate 68 66 71 Respiratory Rate 20 20 Blood Pressure 157/66 H Pulse Oximetry 100 Oxygen Delivery 03/29/24 14:29 03/29/24 16:00 03/29/24 19:41 Temperature Pulse Rate 75 75 Respiratory Rate 20 Blood Pressure Pulse Oximetry Oxygen Delivery Room Air 03/29/24 20:00 03/29/24 20:02 03/29/24 20:02 Temperature Pulse Rate 80 76 Respiratory Rate 20 Blood Pressure Pulse Oximetry 96 Oxygen Delivery Room Air 03/29/24 20:15 03/29/24 20:26 03/29/24 22:35 Temperature 97.0 F L Pulse Rate 75 75 70 Respiratory Rate 20 18 Blood Pressure 165/77 H Pulse Oximetry 97 Oxygen Delivery 03/30/24 00:00 03/30/24 02:02 03/30/24 02:12 Temperature Pulse Rate 96 69 70 Respiratory Rate 20 20 Blood Pressure Pulse Oximetry Oxygen Delivery 03/30/24 04:00 03/30/24 06:00 03/30/24 06:05 Temperature 97.2 F L Pulse Rate 61 75 70 Respiratory Rate 16 20 Blood Pressure 158/82 H Pulse Oximetry 95 Oxygen Delivery 03/30/24 06:07 03/30/24 06:13 Temperature Pulse Rate 70 71 Respiratory Rate 20 Blood Pressure Pulse Oximetry 97 Oxygen Delivery Room Air Intake/Output Intake/Output: Intake & Output 12/03/28/24 03/29/24 03/30/24 23:59 23:59 23:59 23:59 Intake Total 1020 2480 996 800 Output Total 200 700 Balance 820 2480 296 800 Meds/Results Medications: Active Medications Generic Name Dose Route Start Last Admin Trade Name Freq PRN Reason Stop Dose Admin Albuterol/Ipratropium 3 ml 03/27/24 00:03 03/30/24 06:05 Ipratropium 0.5 Mg/Albuterol Sulfate 2.5 Mg Ampul.Neb 3 Ml INHALATION 3 ml Q6HRT PJ Administration Carvedilol 12.5 mg 03/26/24 09:00 03/30/24 08:54 Carvedilol 12.5 Mg Tablet PO 12.5 mg Q12HR PJ Administration Dorzolamide/Timolol 1 drop 03/26/24 22:25 03/30/24 08:55 Dorzolamide/Timolol Ophth Sarah 10 Ml Bottle EACH EYE 1 drop Q12HR PJ Administration Enoxaparin Sodium 30 mg 03/28/24 09:00 03/30/24 09:01 Enoxaparin 30 Mg/0.3 Ml Syringe SUB-Q Not Given DAILY ON LICENSE OF [facility] Ceftriaxone Sodium 2 gm in 100 mls @ 200 mls/hr 03/29/24 16:00 03/29/24 15:15 Rocephin 2 Gm/Ns 100 Ml IVPB 200 mls/hr Q24H PJ Administration Insulin Aspart 7 units 03/27/24 17:00 03/30/24 08:55 Insulin Aspart (*Bkc) 100 Units/Ml SUB-Q Not Given TIDWM ON LICENSE OF [facility] Insulin Glargine 28 units 03/26/24 22:35 03/29/24 20:28 Insulin Glargine (*Bkc) 100 Units/Ml SUB-Q 28 units QHS PJ Administration Miscellaneous Information 1 each 03/26/24 00:01 (Fluoride (Sodium) [Prevident 5000 Plus] 1.1 % Cream) Is Nonformulary, Can Patient Bring F XX 04/25/24 00:00 CLARIFY PJ Non-Formulary Medication 1,000 mg 03/27/24 21:00 Abiraterone PO 04/26/24 20:59 HS PJ Non-Formulary Medication 1 applic 03/26/24 22:30 Fluoride (Sodium) [Prevident 5000 Plus] DENTAL 04/25/24 22:29 Q24H PJ Oxycodone HCl 5 mg 03/26/24 22:22 Oxycodone Hcl (*Crx) 5 Mg Tab Ir PO Q6H PRN pain Pantoprazole Sodium 40 mg 03/27/24 09:00 03/30/24 08:54 Pantoprazole 40 Mg Tablet PO 40 mg DAILY PJ Administration Prednisone 5 mg 03/26/24 22:25 03/30/24 08:54 Prednisone 5 Mg Tablet PO 5 mg Q12HR PJ Administration Radiology Results: ITS Impressions Chest CTA 03/26/24 15:51 IMPRESSION: Motion limited examination. Suboptimal visualization of the bilateral lower lobe segmental and subsegmental arteries as well as subsegmental arteries in the lingula and right middle lobe. As No CT evidence of acute pulmonary embolus in the adequately visualized pulmonary arteries. No acute process detected in the chest. Abdomen/Pelvis CT 03/26/24 17:24 IMPRESSION: Striated appearing nephrograms which can occur with acute pyelonephritis, acute tubular necrosis, and hypotension. No signs of obstruction or medullary sponge kidney. Renal Ultrasound 03/28/24 13:46 IMPRESSION: No definite abnormality seen. Chest X-Ray 03/29/24 17:14 IMPRESSION: 1. Mild pulmonary edema in the lower lungs, right greater left. Labs Labs: Laboratory Results - last 24 hr 03/29/24 03/29/24 03/29/24 11:37 13:24 16:51 WBC RBC Hgb Hct MCV MCH MCHC RDW Plt Count MPV Sodium Potassium Chloride Carbon Dioxide Anion Gap BUN Creatinine Estim Creat Clear Calc Estimated GFR Glucose POC Capillary Glucose 135 H 101 Calcium Phosphorus Magnesium Total Bilirubin AST ALT Alkaline Phosphatase Total Protein Albumin Urine Creatinine 51.0 03/29/24 03/30/24 03/30/24 19:42 06:48 07:54 WBC 10.0 RBC 3.54 L Hgb 10.1 L Hct 31.8 L MCV 89.8 MCH 28.5 MCHC 31.8 L RDW 13.6 Plt Count 313 MPV 9.5 Sodium 139 Potassium 4.3 Chloride 108 H Carbon Dioxide 26 Anion Gap 5 BUN 38 H Creatinine 2.60 H Estim Creat Clear Calc 21 Estimated GFR 24 L Glucose 98 POC Capillary Glucose 151 H 95 Calcium 8.8 Phosphorus 3.2 Magnesium 1.8 Total Bilirubin 0.5 AST 19 ALT 15 Alkaline Phosphatase 99 Total Protein 6.0 L Albumin 3.3 L Urine Creatinine Quality VTE Prophylaxis VTE prophylaxis: pharmacologic ordered
[2024-03-30 11:56] LABS: Glucose Point of Care 162 mg/dl (65-105)
--- NOTE | 2024-03-30 12:57 | P.PNNP_ITS ---
Progress Note: A&P Assessment and Plan (1) GABRIELA (acute kidney injury): Code(s): N17.9 - Acute kidney failure, unspecified Status: Acute Assessment and Plan: * ongoing improvement noted * close to baseline on admission * deterioration noted 24 hours later (from 2.4 --> 3.3mg/dl on 03/27/24) * suspect due to several issues: * prerenal factors (nausea/vomiting/diarrhea on admission) * relative hypotension (210 systolic in ER but dropped to 80s) * infection/early sepsis (pyelonephritis) * contrast exposure (CTA of chest on 03/26) * SARAH-I + diuretic use prior to admission * evaluation to date: * renal ultrasound normal * urine eosinophil negative * urine electrolytes prerenal (by FeUrea) * UA not indicative of infection * moderate proteinuria * holding lisinopril and diuretics at this time * follow trend repeat labs and UOP (2) Stage 3b chronic kidney disease: Code(s): N18.32 - Chronic kidney disease, stage 3b Status: Acute Assessment and Plan: * baseline creatinine seems to run ~ 1.9 - 2.3mg/dl since 2021 * this causes him to fluctuate between CKD stage 3B and stage 4 * last outpatient creatinine about in January 2024 was 1.93mg/dl * CKD likely secondary to HTN, diabetes, vascular disease, and age-related change * follows with [facility] (Dr. Lin Guerrero) (3) Pyelonephritis: Code(s): N12 - Tubulo-interstitial nephritis, not specified as acute or chronic Status: Acute Assessment and Plan: * suggestive by admission CT scan * follow culture data - negative to date * on antibiotics * continue supportive therapy (4) Shortness of breath: Code(s): R06.02 - Shortness of breath Status: Acute Assessment and Plan: * etiology? * imaging noted: * CTA chest negative for PE or other acute pathology * CXR negative. * due to reactive airway disease versus known history of COPD * on RA with stable oxygen saturations * follow respiratory status (5) Anemia: Code(s): D64.9 - Anemia, unspecified Status: Acute Assessment and Plan: * presumably related to GABRIELA and acute illness * follow trend of H/H (6) Hypertension: Code(s): I10 - Essential (primary) hypertension Status: Chronic Assessment and Plan: * reasonable control at this time * off SARAH-I and diuretics due to #1 * follow trend of hemodynamics (7) Type 2 diabetes mellitus: Code(s): E11.9 - Type 2 diabetes mellitus without complications Status: Chronic Assessment and Plan: * follow accu-cheks * glycemic control per hospitalists Will continue to follow Subjective Date/time seen: 03/30/24 12:57 Interval history: Follow-up for acute kidney injury/acute renal failure on chronic kidney disease. No apparent distress noted at the time of my visit; overall, states he feels better but reports subjective chills earlier this morning; renal function/creatinine continue to slowly improve with supportive therapy; no other issues/events overnight or earlier this AM. Exam 2 Narrative: General: elderly but WD/WN male in NAD Heart: normal S1 and S2; no rub Lungs: decreased throughout with some wheezes noted Abdomen: soft, nontender, nondistended, positive bowel sounds Extremities: no cyanosis or clubbing; no edema Skin: warm and intact Objective Data Vital Signs Vital Signs: Vital Signs Temp Pulse Resp BP Pulse Ox O2 Del Method 03/30/24 12:30 97.3 F L 71 16 156/67 H 95 03/30/24 08:00 Room Air 03/30/24 06:13 71 20 03/30/24 06:07 70 97 Room Air 03/30/24 06:05 70 20 03/30/24 06:00 97.2 F L 75 16 158/82 H 95 03/30/24 04:00 61 03/30/24 02:12 70 20 03/30/24 02:02 69 20 03/30/24 00:00 96 03/29/24 22:35 97.0 F L 70 18 165/77 H 97 03/29/24 20:26 75 03/29/24 20:15 75 20 03/29/24 20:02 96 Room Air 03/29/24 20:02 76 20 03/29/24 20:00 80 03/29/24 19:41 Room Air Intake/Output Intake/Output: Intake & Output 03/27/24 03/28/24 03/29/24 03/30/24 23:59 23:59 23:59 23:59 Intake Total 1020 2480 1096 1158 Output Total 200 700 Balance 820 2480 396 1158 Meds/Results Medications: Active Medications Generic Name Dose Route Start Last Admin Trade Name Josefa PRN Reason Stop Dose Admin Albuterol/Ipratropium 3 ml 03/27/24 00:03 03/30/24 13:26 Ipratropium 0.5 Mg/Albuterol Sulfate 2.5 Mg Ampul.Neb 3 Ml INHALATION 3 ml Q6HRT PJ Administration Carvedilol 12.5 mg 03/26/24 09:00 03/30/24 08:54 Carvedilol 12.5 Mg Tablet PO 12.5 mg Q12HR PJ Administration Dorzolamide/Timolol 1 drop 03/26/24 22:25 03/30/24 08:55 Dorzolamide/Timolol Ophth Sarah 10 Ml Bottle EACH EYE 1 drop Q12HR PJ Administration Enoxaparin Sodium 30 mg 03/28/24 09:00 03/30/24 09:01 Enoxaparin 30 Mg/0.3 Ml Syringe SUB-Q Not Given DAILY PJ Ceftriaxone Sodium 2 gm in 100 mls @ 200 mls/hr 03/29/24 16:00 03/30/24 17:10 Rocephin 2 Gm/Ns 100 Ml IVPB 200 mls/hr Q24H PJ Administration Insulin Aspart 7 units 03/27/24 17:00 03/30/24 17:11 Insulin Aspart (*Bkc) 100 Units/Ml SUB-Q 7 units TIDWM PJ Administration Insulin Glargine 28 units 03/26/24 22:35 03/29/24 20:28 Insulin Glargine (*Bkc) 100 Units/Ml SUB-Q 28 units QHS PJ Administration Miscellaneous Information 1 each 03/26/24 00:01 (Fluoride (Sodium) [Prevident 5000 Plus] 1.1 % Cream) Is Nonformulary, Can Patient Bring F XX 04/25/24 00:00 CLARIFY PJ Non-Formulary Medication 1,000 mg 03/27/24 21:00 Abiraterone PO 04/26/24 20:59 HS [facility] Non-Formulary Medication 1 applic 03/26/24 22:30 Fluoride (Sodium) [Prevident 5000 Plus] DENTAL 04/25/24 22:29 Q24H PJ Oxycodone HCl 5 mg 03/26/24 22:22 Oxycodone Hcl (*Crx) 5 Mg Tab Ir PO Q6H PRN pain Pantoprazole Sodium 40 mg 03/27/24 09:00 03/30/24 08:54 Pantoprazole 40 Mg Tablet PO 40 mg DAILY PJ Administration Polyethylene Glycol 17 gm 03/30/24 09:55 03/30/24 17:11 Polyethylene Glycol 3350 17 Gm Powd.Pack PO 17 gm QAM PJ Administration Prednisone 5 mg 03/26/24 22:25 03/30/24 08:54 Prednisone 5 Mg Tablet PO 5 mg Q12HR PJ Administration Radiology Results: ITS Impressions Chest CTA 03/26/24 15:51 IMPRESSION: Motion limited examination. Suboptimal visualization of the bilateral lower lobe segmental and subsegmental arteries as well as subsegmental arteries in the lingula and right middle lobe. As No CT evidence of acute pulmonary embolus in the adequately visualized pulmonary arteries. No acute process detected in the chest. Abdomen/Pelvis CT 03/26/24 17:24 IMPRESSION: Striated appearing nephrograms which can occur with acute pyelonephritis, acute tubular necrosis, and hypotension. No signs of obstruction or medullary sponge kidney. Renal Ultrasound 03/28/24 13:46 IMPRESSION: No definite abnormality seen. Chest X-Ray 03/29/24 17:14 IMPRESSION: 1. Mild pulmonary edema in the lower lungs, right greater left. Labs Labs: Laboratory Tests 03/30/24 06:48 03/30/24 06:48 Calcium 8.8 Phosphorus 3.2 Magnesium 1.8 Total Bilirubin 0.5 AST 19 ALT 15 Alkaline Phosphatase 99 Total Protein 6.0 L Albumin 3.3 L
[2024-03-30 17:09] LABS: Glucose Point of Care 201 mg/dl (65-105)
[2024-03-30] MEDS: cefTRIAXone 2 GM/NS 100 ML 2 GM/100 ML BAG IVPB (17:10)
[2024-03-30] MEDS: INSULIN ASPART (*BKC) 100 UNITS/ML 7 UNITS SUB-Q (17:11)
[2024-03-30] MEDS: polyethylene glycoL 3350 17 GM POWD.PACK PO (17:11)
[2024-03-30 20:00] LABS: Glucose Point of Care 199 mg/dl (65-105)
[2024-03-30] MEDS: INSULIN GLARGINE (*BKC) 100 UNITS/ML 28 UNITS SUB-Q (21:32)
[2024-03-30] MEDS: [UNRECOGNIZED DRUG - OTHER] PO (21:37)
[2024-03-30] MEDS: ABIRATERONE 250 MG PO (21:37)
[2024-03-31] VITALS (18 sets, daily range): BP systolic 129–146; BP diastolic 66–86; PULSE 65–91; RESP 13–20; TEMP 36–37; O2SAT 95–97
[2024-03-31] MEDS: IPRATROPIUM 0.5 MG/ALBUTEROL SULFATE 2.5 MG AMPUL.NEB 3 ML INHALATION ×4 (02:30→20:51)
[2024-03-31 02:36] LABS: Glucose Point of Care 84 mg/dl (65-105)
--- OUTSIDE RECORDS SUMMARY | 2024-03-31 04:51 | XMS_ITS | Clinical Summary ---
Author Organization [facility] Address Formerly [facility] 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 Name Role Phone Unavailable Primary Care Provider Unavailabl e Social History Tobacco Use Types Packs/Day Years Used Date Smoking Tobacco: Never Assessed Sex and Gender Information Value Date Recorded Sex Assigned at Not on file Legal Sex Male 7:57 PM CDT Gender Identity Not on file Sexual Orientation Not on file Plan of Treatment Health Maintenance Due Date Last Done Comments DTaP, Tdap and Td Vaccines ( 1 - Tdap) [birth year]08/1959 Zoster Vaccines (1 of 2) 1990 RSV Immunization or 60+ Years (1 - 1-dose 60+ series) 2000 Pneumococcal Vaccine: 65+ Ye ars (1 of 1 - PCV) 2005 COVID-19 Vaccine ( - 2023-2 5 season) 2023 Influenza Adult (#1) 2024 Meningococcal Vaccine Aged Out No tonio tahira eligible based on patient's age to complete this topic RSV Immunizations Under 20 Months Aged Out No longer eligible based on patient's age to complete this topic
--- OUTSIDE RECORDS SUMMARY | 2024-03-31 04:51 | XMS_ITS | Clinical Summary ---
Author Organization [facility] Address [address] [place] [address] Care Team Providers Care Ship'S Master Name Role Phone Kraig Ching MD Primary Care Provider [phone] Gautam Cope MD Unavailable Tramaine Roe MD Unavailable [phone] Sukhwinder Uirbe MD Unavailable [phone] Shay Guillermo MD Unavailable [phone] Marsha Landis RN Unavailable Unavailab le Allergies Active Allergy Reactions Criticality Noted Date Comments Atorvastatin Muscle pain Medium 12/14/2019 Medications albuterol HFA (PROVENTIL HFA,VENTOLIN HFA,PROAIR HFA) 90 mcg/actuation inhaler Inhale 2 puffs every 8 (eight) hours as needed for wheezing or shortness of breath 06/22/19 23 Active pen needle, diabetic (BD Ultra-Fine Short Pen Needle) 31 gauge x 5/16 needle USE TO INJECT INSULIN 4 TIMES EVERY DAY DIRECTED 400 each 11 12/25/19 23 Active PreviDent 5000 Plus 1.1 % creamIndicatio ns:Prevention of Dental Caries Apply topically nightly 12/11/19 23 Active NovoLOG 100 unit/mL (3 mL) pen for injection ADMINISTER 8 UNITS UNDER THE SKIN THREE TIMES DAILY BEFORE MEALS 3 mL 11 05/05/19 24 Active Additional Information Patient taking differently: 8 Units subcutaneous 3 times daily with meals, Plus Sliding Scale , Indications: type 2 diabetes mellitus, Informant: Self, Reported on 05/20/2023 predniSONE (DELTASONE) 5 mg tablet Take 1 tablet (5 mg) by mouth two times a day 60 tablet 11 08/12/19 24 Active pravastatin (PRAVACHOL) 20 mg tabletIndicati ons:hyperlipid emia Take 1 tablet (20 mg total) by mouth nightly 90 tablet 3 09/16/19 24 Active carvediloL (COREG) 12.5 mg tablet Take 1 tablet (12.5 mg total) by mouth 2 (two) times a day with meals 60 tablet 11 10/05/19 24 025 Active cyanocobalamin (Vitamin B-12) 1,000 mcg tabletIndicati ons:Prevention of Vitamin B12 Deficiency Take 1 tablet (1,000 mcg total) by mouth daily 10/20/[address] (PROTONIX) 40 mg EC tabletIndicati ons:Gastroesop hageal reflux disease, unspecified whether esophagitis present TAKE 1 TABLET(40 MG) BY MOUTH DAILY 90 tablet 1 11/30/19 24 Active lisinopriL (PRINIVIL,ZEST RIL) 40 mg tablet Take 1 tablet (40 mg total) by mouth daily 90 tablet 3 12/01/19 24 025 Active Accu-Chek Fastclix Lancet Drum misc USE DIRECTED TWICE DAILY 204 each 12/04/19 24 Active chlorthalidone (HYGROTON) 25 mg tablet TAKE 1 TABLET(25 MG) BY MOUTH DAILY 90 tablet 1 01/03/20 24 Active Januvia 25 mg tabletIndicati ons:Type 2 diabetes mellitus with stage 3 chronic kidney disease, without long-term current use of insulin (HCC) TAKE 1 TABLET BY MOUTH DAILY 30 tablet 11 01/06/20 24 Active oxyCODONE (ROXICODONE) 5 mg immediate release tabletIndicati ons:Pain Take 1 tablet (5 mg total) by mouth every 6 (six) hours as needed for pain 60 tablet 01/10/20 24 Active blood glucose diagnostic (Accu-Chek Guide test strips) strip USE DIRECTED TWICE DAILY 200 strip 1 02/23/20 24 Active abiraterone (ZYTIGA) 250 mg tabletIndicati ons:Prostate cancer (HCC) TAKE 4 TABLETS BY MOUTH DAILY TAKE WITH A GLASS OF WATER, ON AN EMPTY STOMACH AT LEAST 1 HR BEFORE OR 2 HRS AFTER FOOD. 120 tablet 6 03/13/20 24 Active dorzolamide-ti moloL (COSOPT) 22.3-6.8 mg/mL ophthalmic solution INSTILL 1 DROP IN BOTH EYES TWICE DAILY 10 mL 11 03/20/20 24 Active LANTUS 100 unit/mL (3 mL) pen for injection ADMINISTER 28 UNITS UNDER THE SKIN DAILY 6 mL 1 03/20/20 24 Active abiraterone (ZYTIGA) 250 mg tabletIndicati ons:Metastatic prostate cancer. Take 4 tablets (1,000 mg total) by mouth daily Take with a glass of water, on an empty stomach at least 1 hr before or 2 hrs after food. 120 tablet 6 07/12/19 24 024 Discontinued dorzolamide-ti moloL (COSOPT) 22.3-6.8 mg/mL ophthalmic solution INSTILL 1 DROP IN BOTH EYES TWICE DAILY 10 mL 11 12/06/19 24 024 Discontinued insulin glargine (LANTUS) 100 unit/mL (3 mL) pen for injection ADMINISTER 28 UNITS UNDER THE SKIN DAILY 6 mL 1 01/06/20 24 024 Discontinued Active Problems Problem Noted Date Diagnosed Date Fatigue 10/05/2023 Assessment & Plan (01/10/2024 11:45 AM CDT): Symptoms are improved with lowering carvedilol. Assessment & Plan (10/05/2023 12:55 PM CDT): Order TSH,B12. Decrease carvedilol to 12.5 mg BID. Primary open angle glaucoma (POAG) of left eye, moderate stage 10/02/2023 Chronic heart failure with p reserved ejection fraction (CMS/HCC) 08/19/2023 Assessment & Plan (08/19/2023 3:08 PM CDT): Reviewed low sodium diet. GABRIELA (acute kidney injury) 08/19/2023 Assessment & Plan (08/19/2023 3:08 PM CDT): Creatinine improved with hydration. Order BMP. Sepsis with acute hypoxic respiratory failure Assessment & Plan (08/18/2023 9:15 AM CDT): Hospitalization reviewed. Symptoms improved with antibiotics and supportive care. Ocular hypertension of right eye 06/25/2023 Arrhythmia 05/19/2023 Pseudophakia of both eyes 05/19/2023 Hypertension, essential 03/08/2023 Assessment & Plan (10/05/2023 12:54 PM CDT): Hypertension is controlled. Decrease carvedilol to 12.5 mg. Assessment & Plan (03/08/2023 7:11 AM TEXTILE SCREEN MAKER): Hypertension is controlled. Continue current regimen. 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 Avoid NSAIDS. Assessment & Plan (10/05/2023 5:50 AM CDT): Continue current regimen.Limit nephrotoxins.Reviewed creatinine. Avoid NSAIDS. Assessment & Plan (03/08/2023 7:12 AM TEXTILE SCREEN MAKER): Continue current regimen.Limit nephrotoxins.Reviewed creatinine. Avoid NSAIDS. CKD (chronic kidney disease) 03/08/2022 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 chronic kidney disease 2021 Gastroesophageal reflux disease 04/08/2021 Assessment & Plan (03/08/2023 11:17 AM TEXTILE SCREEN MAKER): Reviewed dietary modifications. Continue PPI. Assessment & Plan (08/18/2022 6:36 AM CDT): Reviewed dietary modifications. Continue PPI. Assessment & Plan (02/12/2022 6:03 AM CDT): Reviewed dietary modifications. Continue PPI. Assessment & Plan (04/08/2021 5:55 AM TEXTILE SCREEN MAKER): Reviewed dietary modifications. Continue PPI. Secondary hyperparathyroidism of renal origin Spinal stenosis of lumbar re gion with neurogenic claudication 09/09/2018 Sciatica, left side 09/09/2018 Chronic bilateral low back pain with bilateral s ciatica 09/09/2018 Assessment & Plan (03/08/2023 11:17 AM TEXTILE SCREEN MAKER): Continue oxycodone. Continue home PT exercises. Advised using a walker. Assessment & Plan (08/18/2022 11:47 AM CDT): Continue oxycodone. Continue home PT exercises. Advised using a walker. Assessment & Plan (02/12/2022 11:41 AM CDT): Continue oxycodone. Continue home PT exercises. A prescription for a walker. Assessment & Plan (04/08/2021 5:55 AM TEXTILE SCREEN MAKER): Continue oxycodone. Continue home PT exercises. Continue walker. Assessment & Plan (12/26/2020 10:48 AM CDT): Continue oxycodone. Script for walker. Assessment & Plan (09/26/2020 11:29 AM CDT): Continue ROM exercises and follow with Pain Management. Refill oxycodone as needed. Prostate cancer 09/06/2018 Assessment & Plan (01/10/2024 6:58 AM CDT): Follow with Oncology. Continue Zytiga. Assessment & Plan (10/05/2023 5:49 AM CDT): Follow with Oncology. Continue Zytiga. Assessment & Plan (12/14/2019 11:27 AM CDT): Follow with Oncology. Oxycodone for severe pain. SBO (small bowel obstruction) (CMS/HCC) 07/16/19 19 Assessment & Plan (07/15/2018 2:51 PM CDT): He improved with conservative treatment. Chronic diastolic heart failure 01/25/2018 Assessment & Plan (03/07/2018 6:54 AM TEXTILE SCREEN MAKER): Hypertension is controlled. Continue current regimen. CHF compensated. Continue current regimen. Reviewed low sodium diet. Shortness of breath 01/25/2018 Hypertensive kidney disease with chronic kidney disease stage III 11/25/2017 Assessment & Plan (08/18/2022 11:55 AM CDT): Blood pressure is improved. Continue current regimen. Limit nephrotoxins. Monitor creatinine. Avoid NSAIDS. Assessment & Plan (02/12/2022 11:49 AM CDT): Hypertension is not controlled. Continue current regimen and start amlodipine at night. Limit nephrotoxins. Reviewed creatinine. Assessment & Plan (04/08/2021 5:54 AM TEXTILE SCREEN MAKER): Hypertension is controlled. Continue current regimen.Limit nephrotoxins. Monitor creatinine improved to 1.54 on 04/01/21. Order creatinine.. Avoid NSAIDS. Assessment & Plan (12/26/2020 6:28 AM CDT): Hypertension is controlled. Continue current regimen.Limit nephrotoxins. Monitor creatinine improved to 1.48 on 10/15/20. Order creatinine.. Avoid NSAIDS. Assessment & Plan (12/14/2019 11:18 AM CDT): Blood pressure is elevated. Add amlodipine.Reviewed creatinine 1.65 on 12/07/19. Follow with Nephrology. Assessment & Plan (10/10/2019 11:25 AM CDT): Blood pressure is elevated. Change diltiazem to carvedilol. Follow with renal for CKD. Avoid NSAIDS. Assessment & Plan (07/15/2018 2:50 PM CDT): Hypertension is controlled. Continue current regimen. Limit nephrotoxins. Monitor creatinine. Avoid NSAIDS. Assessment & Plan (03/07/2018 6:55 AM TEXTILE SCREEN MAKER): Hypertension is controlled. Continue current regimen. Limit nephrotoxins. Monitor creatinine. Avoid NSAIDS. Assessment & Plan (11/25/2017 7:09 AM CDT): Limit nephrotoxins. Monitor creatinine. Avoid NSAIDS. Duodenal ulcer 11/25/2017 Assessment & Plan (11/25/2017 10:16 AM CDT): Reviewed GI note . Continue pantoprazole. Avoid NSAIDS. Refer for EGD. PAF (paroxysmal atrial fibrillation) ([facility]/HCC) 0 10/22/2017 Assessment & Plan (03/07/2018 6:54 AM TEXTILE SCREEN MAKER): Continue rate control. Continue anticoagualtion. Anticipate starting Eliquis after cleared by G.I. Assessment & Plan (11/25/2017 10:16 AM CDT): Continue Diltiazem. Await EGD to determine plan for reinitiating aspirin. COPD (chronic obstructive pulmonary disease) Chronic kidney disease, stage 3b 10/22/2017 Assessment & Plan (02/12/2022 6:02 AM CDT): Limit nephrotoxins. Monitor creatinine. Avoid NSAIDS.Follow with Nephrology. Assessment & Plan (09/26/2020 10:48 AM CDT): Follow with Nephrology;reviewed creatinine was 2.5 on 09/04/20. Stop metformin. Assessment & Plan (07/15/2018 2:51 PM CDT): Limit nephrotoxins. Monitor creatinine. Avoid NSAIDS. Assessment & Plan (03/07/2018 6:55 AM TEXTILE SCREEN MAKER): Limit nephrotoxins. Monitor creatinine. Avoid NSAIDS. Assessment & Plan (11/25/2017 7:07 AM CDT): Limit nephrotoxins. Monitor creatinine. Avoid NSAIDS. Allergy to statin medication 08/30/2017 Tobacco use 08/30/2017 Assessment & Plan (08/30/2017 9:05 AM CDT): Advised cessation. Hyperlipidemia associated with type 2 diabetes jo ann dorado 01/15/2017 Assessment & Plan (08/18/2023 9:14 AM CDT): .Continue Insulin.Reviewed proper diet.Continue pravastatin. Assessment & Plan (08/18/2022 11:54 AM CDT): HgbA1C improved to 7.9. Continue Insulin.Reviewed proper diet. Assessment & Plan (04/08/2021 10:17 AM TEXTILE SCREEN MAKER): Reviewed HgBA1C elevated at 10.6 on 04/01/21. Diabetes is not controlled.Increase Insulin to 28 units and continue Januvia. Start Novolin 8 units with meals.Refer to Endocrinology. Reviewed proper diet. Continue statin therapy. Assessment & Plan (12/26/2020 10:45 AM CDT): HgbA1C was elevated at 7.8 at last visit. Diabetes is not controlled.Increase Insulin to 20 units and continue Januvia. Reviewed proper diet. Continue statin therapy. Assessment & Plan (03/07/2018 6:57 AM TEXTILE SCREEN MAKER): Continue pravastatin. He had myalgias on other statins. Assessment & Plan (11/25/2017 7:10 AM CDT): He had myalgias on statin. Resume Zetia. Assessment & Plan (01/15/2017 6:44 AM CDT): Reviewed proper diet. Continue statin therapy. Inflamed seborrheic keratosis 10/03/2014 Actinic keratosis 10/03/2014 Benign neoplastic disease 10/03/2014 Angioma 10/03/2014 Vitamin D deficiency 12/15/2013 Hypertension 01/12/2012 Assessment & Plan (01/10/2024 6:56 AM CDT): Hypertension is controlled. Continue current regimen. Assessment & Plan (08/18/2023 9:14 AM CDT): Hypertension is controlled. Continue current regimen. Assessment & Plan (02/12/2022 6:02 AM CDT): Hypertension is controlled. Continue current regimen. Assessment & Plan (09/26/2020 10:47 AM CDT): Hypertension is controlled. Continue current regimen. Assessment & Plan (08/30/2017 10:59 AM CDT): Hypertension is controlled. Continue current regimen. Reviewed low sodium diet. Assessment & Plan (03/02/2017 6:53 AM TEXTILE SCREEN MAKER): Hypertension is controlled. Continue current regimen. Reviewed low sodium diet. Assessment & Plan (01/15/2017 6:44 AM CDT): Reviewed proper diet. Continue statin therapy. Hyperlipidemia 01/12/2012 Assessment & Plan (10/05/2023 5:49 AM CDT): Continue pravastatin. Order lipid panel at next visit. Assessment & Plan (09/26/2020 10:47 AM CDT): Continue pravastatin. Order lipid panel. Assessment & Plan (12/14/2019 7:08 AM CDT): Reviewed LDL 145 on 12/07/19. Continue pravastatin. He is intolerant of high potency statins. Assessment & Plan (10/10/2019 11:35 AM CDT): Continue pravastatin order lipid panel. Resolved Problems Problem Noted Date Diagnosed Date Resolved Date Cataract, left 03/08/2023 05/28/2023 Assessment & Plan (03/08/2023 11:40 AM TEXTILE SCREEN MAKER): Agree with cataract surgery. 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 No indication for further testing. 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 Monitor off medication. Impotence of organic origin 08/26/2013 08/30/2017 Overview (07/17/2016): IMPOTENCE, ORGANIC ORIGN Gross hematuria 07/14/2012 08/30/2017 Type 2 diabetes mellitus wit hout complication, with long-term current use of insulin ([facility]) 01/12/2012 10/02/2023 Overview (07/23/2017): Description: YEAR OF ONSET: 1989 Assessment & Plan (08/18/2022 12:03 PM CDT): Continue current regimen. Assessment & Plan (12/26/2020 6:29 AM CDT): Continue insulin. Assessment & Plan (09/26/2020 10:49 AM CDT): Reviewed HgBA1C was 7.9 on 07/23/20. Continue Insulin. Stop metformin in setting of CKD. Follow with Nephrology for CKD. Assessment & Plan (12/14/2019 7:10 AM CDT): Recent HgbA1C improved to 9. He has been referred to Endocrinology. Increase Lantus to . Assessment & Plan (10/10/2019 11:24 AM CDT): Reviewed HgbA1c 11 on 08/22/19. Increase Insulin to 14 units. Refer to Endocrinology. Assessment & Plan (07/15/2018 3:08 PM CDT): Continue current Diabetic regimen. Advised annual eye exam. Limit nephrotoxins. Monitor creatinine. Avoid NSAIDS. He will monitor sugars for 3 weeks. Start Insulin if morning sugars are over 200. Assessment & Plan (03/07/2018 6:56 AM TEXTILE SCREEN MAKER): Continue current regimen. Advised annual eye exam.Limit nephrotoxins. Monitor creatinine. Avoid NSAIDS. Assessment & Plan (11/25/2017 10:16 AM CDT): Continue current regimen and add Januvia.Advised annual eye exam. Limit nephrotoxins. Monitor creatinine. Avoid NSAIDS. Assessment & Plan (01/15/2017 6:44 AM CDT): Continue current regimen. Advised annual eye exam. Reviewed proper diet. Continue statin therapy. Encounters Date Type Department Care Team Description 03/13/2024 Orders Only [facility] Oncology [address] [facility] [facility] [address] [place] [address] Gautam Cope MD 01/27/2024 11:00 AM CDT Office Visit [facility] Ophthalmology [address] [facility] [address] [facility] 2nd [address] [place] [address] Higinio Connolly MD Primary open angle glaucoma (POAG) of left eye, moderate stage (Primary Dx); Ocular hypertension of right eye 01/11/2024 12:45 PM CDT Infusion [facility] - Infusion [address] [facility] [address] [place] [address] Prostate cancer (HCC) (Primary Dx) 01/11/2024 11:45 AM CDT Office Visit [facility] Oncology [address] [facility] [address] [place] [address] Gautam Cope MD Prostate cancer (HCC) (Primary Dx) 01/11/2024 11:00 AM CDT Lab [facility] - Lab Collection [address] [facility] [address] [place] [address] Prostate cancer (HCC) 01/10/2024 12:00 PM CDT Office Visit [facility] [address] [facility] [facility] [address] [place] [address] Kraig Ching MD Primary hypertension (Primary Dx); Type 2 diabetes mellitus with stage 3a chronic kidney disease, with long-term current use of insulin (HCC); Prostate cancer (HCC); Fatigue, unspecified type 01/07/2024 Telephone [facility] [address] [facility] 7th [place] [address] [place] [address] Ladi Bunch, SHEA Appointments>01/11/24 >ACB from Last 3 Months Immunizations Name Administration Dates Next Due Influenza, Quad, Adjuvantate d, Intramuscular 02/22/2021 Influenza, Quadrivalent, Amelia l Culture-based MDCK, Preservative Free, Antibiotic Free, Intramuscular 02/06/2020 Influenza, Quadrivalent, Hig h Dose, Preservative Free, Intrr 12/21/2022,02/12/2022 Influenza, Quadrivalent, Spl it, Preservative Free, Intramuscular 01/14/2015 Influenza, Trivalent, High D ose, Split, Preservative Free, Intramuscular 01/17/2019 Influenza, Unspecified 01/17/2019(Deferred: Daisy ent Refused) [employer] ([employer]) SARS-CoV-2 Vaccination 06/14/2020, 06/14/2020 Pfizer SARS-CoV-2 Monovalent Vaccination (12+ Yrs) PURPLE 03/05/2021,02/22/2021 Pneumococcal Conjugate PCV 13 11/17/2018 Pneumococcal Polysaccharide PPV23 08/08/2021 Surgical History Surgery Date Site/Laterality Comments CHOLECYSTECTOMY 04/12/1998 - 04/11/1999 ABDOMINAL SURGERY 04/12/1998 - 04/11/1999 Extensive abdominal surgery with Pancreatic abcess/pancreatitis PROSTATECTOMY 04/12/1999 - 04/11/2000 COLONOSCOPY Multiple-- Last 2012 UPPER GASTROINTESTINAL ENDOSCOPY 12/11/2017 - 01/09/2018 CATARACT EXTRACTION W/ INTRAOCULAR LENS IMPLANT 05/19/2023 Left CATARACT EXTRACTION W/ INTRAOCULAR LENS IMPLANT 06/09/2023 Right Medical History Medical History Date Comments History of pancreatitis 1998 Renal disease 40% functioning HTN (hypertension) Dxd ~1999 Multiple gastric ulcers GERD (gastroesophageal reflux disease) Esophageal stricture Diverticulitis Diabetes (HCC) Anemia History of prostate cancer Prost ate CA dxd 1998 s/p prosatectomy and radiation (last 1999) with mets to L2 Chronic pain disorder Low back pain Hyperlipidemia Treated with sta tin Arrhythmia Type 2 diabetes mellitus (HCC) Family History Medical History Relation Name Comments Dementia Father Kidney failure Mother Diabetes type II Other 3 Diabetes me llitus type 2; Hypertension Other 4 Hypertension; Anesthesia problems Neg Hx Relation Name Status Comments Father Mother Other 1 Alive Other 2 Alive Other 3 Other 4 Sister Alive Social History Tobacco Use Types Packs/Day Years Used Date Smoking Tobacco: Former Cigarettes 0.3 52 1 958 - 2009 Passive Smoke Exposure: Past Smokeless Tobacco: Never Comments:Smoking History Pac ks/day: 10 Cigarettes Alcohol Use Standard Drinks/Week Comments Yes 0 (1 standard drink = 0.6 oz pur e alcohol) Occasional glass of wine. AUDIT-C Answer Date Recorded Q1: How often do you have a drink containing alc ohol? 2-3 times a week 05/20/2023 Q2: How many drinks containi ng alcohol do you have on a typical day when you are drinking? 1 or 2 05/20/2023 Q3: How often do you have si x or more drinks on one occasion? Less than monthly 05/20/2023 Overall Financial Resource Strain (CARDIA) Answe r Date Recorded Difficulty of Paying Living Expenses Not hard at all 04/21/2019 PHQ-2 Answer Date Recorded PHQ-2 Total Score (If total score is 3 or more points, staff should administer the PHQ-9) 0 01/10/2024 Hunger Vital Sign Answer Date Recorded Worried About Running Out of Food in the Last Ye ar Patient declined 04/21/2019 Ran Out of Food in the Last Year Patient decline d 04/21/2019 PRAPARE - Transportation Answer Date Re corded Lack of Transportation (Medical) Patient decline d 04/21/2019 Lack of Transportation (Non-Medical) Patient dec lined 04/21/2019 Personal Safety Answer Date Recorded Have you ever been in or are you currently in a harmful physical or emotional relationship or is someone making you feel afraid or unsafe? Denies 06/09/2023 Sex and Gender Information Value Date Recorded Sex Assigned at Not on file 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 TEXTILE SCREEN MAKER Gender Identity Not on file Sexual Orientation Not on file Obstetrics History Last Filed Vital Signs Vital Sign Reading Time Taken Comments Blood Pressure 125/68 01/11/2024 11:31 AM CDT Pulse 69 01/11/2024 11:31 AM CDT Temperature 36.3 ??C (97.4 ??F) 01/11/2024 11:31 AM C DT Respiratory Rate 18 01/11/2024 11:31 AM CDT Oxygen Saturation 97% 01/11/2024 11:31 AM CDT Inhaled Oxygen Concentration - - Weight 94.4 kg (208 lb 3.2 oz) 01/11/2024 11:31 AM CDT Height 177.8 cm (5' 10 ) 01/10/2024 11:21 AM CDT Body Mass Index 29.87 01/10/2024 11:21 AM CDT Plan of Treatment Health Maintenance Due Date Last Done Comments DTaP/Tdap/Td Vaccine (1 - Tdap) 11/08/1951 Hepatitis B Screening 1958 Zoster Vaccine (1 of 2) 11/08/1959 Well Visit 65+ 03/27/2021 03/27/2020, 01/17/2019 Influenza Vaccine (#1) 2023 , 02/12/2022, 02/22/2021, Additional history exists Albumin Creatinine Ratio, Urine 01/02/2024 01/01/2023, 12/26/2020, 05/22/2019, Additional history exists Lipid Panel 03/08/2024 03/08/2023, 06/2021, 12/26/2020, Additional history exists Hemoglobin A1C 04/20/2024 10/19/2023, 07/11, 05/04/2023, Additional history exists Fall Risk Assessment 06/09/2024 06/09/2023, 03/08/2023, 02/12/2022, Additional history exists Dilated Eye Exam 10/06/2024 10/07/2023, , 06/29/2018, Additional history exists Covid-19 Vaccine ( season) 2025 03/07/2022, 10/24/2021, 03/05/2021, Additional history exists Postponed from 12/12/2023 (Patient declined, but will receive in the future) Depression Screening 01/09/2025 01/10/2024, 03/08/2023, 08/18/2022, Additional history exists Foot Exam 01/09/2025 01/10/2024, 12/2023, 08/18/2022, Additional history exists eGFR 01/10/2025 01/11/2024, 12/2023, 08/19/2023, Additional history exists Pneumococcal vaccine 65+ Completed 08/08/2021, 11/2018 Goals Goal Patient Goal Type Associated Problems Recent Progress Patient-Stated? Author ZAK General Goal - Patient is knowledgeable about condition when worsening and how to respond ACO Care Management No change(09/06 4:37 PM CDT) Ilene Yadav, RN Note: Problem: Knowledge deficit related to signs and symptoms of worsening condition Interventions: - Assess patient's level of understanding related to their condition(s), specific medications and self-management of their chronic conditions. - Send educational materials to patient related to their chronic condition, including signs and symptoms, self-management actions, and serious symptoms that require urgent medical intervention. - Assist patient/provider in developing an action plan for symptom management. - Review with patient weekly: s/s worsening condition, self-management actions to take, when to call CM or provider. Diabetes Goal - Patient will voice understanding of complications that arise from uncontrolled diabetes ACO Care Management No change(09/06 4:37 PM CDT) Ilene Yadav, SHEA Note: Problem: Knowledge deficit - Complications of Diabetes Interventions: - Assess patient's knowledge regarding uncontrolled diabetes. Review patients most recent HA1C level and discuss what it means. - Provide education where needed regarding the possibility of Cardiovascular disease, Nerve damage (neuropathy), kidney damage, eye damage (retinopathy), Foot damage, skin conditions. - Provide education regarding preventitive measures that can be done to monitor for these complications: yearly dialated eye exams, daily foot checks and diabetic foot care, office visits with lab draws 2-4 times per year to monitor diabetes and kidney status, etc. [facility] Chronic Pain Care Plan Chronic Care Management No change(03/23 1:47 PM TEXTILE SCREEN MAKER) No Ingrid Oden, RN Note: Problem: Chronic Pain Goals: 1. Minimize further functional decline 2. Maximize quality of life 3. Control pain Strategies: - Activity/exercise program recommendation - Conservative stepwise pain medicine strategy with multi-disciplinary approach - Recommend healthy lifestyle strategies and compensatory methods as needed Medical Devices Implanted Type Area Raise Driller Device Identifier Shelf Expiration Date Model / Serial / Lot [employer] Lens Iol Cna0t0.195 [facility] Cna0t0.195 - [id number] - [id number] Implanted:Qty: 1 on 06/09/2023 by Higinio Connolly MD at [facility] Lens Right: Eye [employer] [id number] 10/27/2025 CNA0T0.19 5 / [id number] / [employer] Lens Iol Cna0t0.200 [place] [employer] Cna0t0.200 - [id number] - [id number] Implanted:Qty: 1 on 05/19/2023 by Higinio Connolly MD at [facility] Left: Eye [employer] [id number] 10/06/2025 CNA0T0.20 0 / [id number] / Procedures Procedure Name Priority Date/Time Associated Diagnosis Comments KURTZ VISUAL FIELD - OS - LEFT EYE Routine 01/27/2024 11:46 AM CDT Primary open angle glaucoma (POAG) of left eye, moderate stage EGFR STAT 01/11/2024 11:10 AM CDT Prostate cancer (HCC) DIFFERENTIAL AUTO Routine 01/11/2024 11: 10 AM CDT Prostate cancer (HCC) PSA DIAGNOSTIC Routine 01/11/2024 11:10 AM CDT Prostate cancer (HCC) COMPREHENSIVE METABOLIC PANEL STAT 01/11/2024 11:10 AM CDT Prostate cancer (HCC) CBC WITH AUTO DIFFERENTIAL Routine 01/11/2024 11:10 AM CDT Prostate cancer (HCC) LACTATE DEHYDROGENASE Routine 01/11/2024 11:10 AM CDT Prostate cancer (HCC) HEMOGLOBIN A1C Routine 10/19/2023 11:05 AM CDT Prostate cancer (HCC) LIPID PANEL Routine 03/08/2023 11:55 AM TEXTILE SCREEN MAKER Hyperlipidemia, unspecified hyperlipidemia type ALBUMIN CREATININE RATIO, URINE Routine 01/01/2023 10:40 AM CDT Type 2 diabetes mellitus with stage 3a chronic kidney disease, with long-term current use of insulin ([facility]) DIABETES EYE EXAM Routine 06/29/2018 from Last 3 Months or Most Recently Relevant to Health Maintenance Results * Kurtz Visual Field - OS - Left Eye (01/27/2024 11:46 AM CDT) Pathologist [facility] Pattern Deviation OS 15.38 CONTINUUM Mean Deviation OS -15.18 CONTINUUM Anatomical Region Laterality Modality Head Visual Field Narrative 01/27/2024 11:46 AM CDT Fixation was borderline. Cooperation was good. Reliability was good. Progression has been stable. Foveal threshold was normal. Findings include inferior altitudinal defect. Mean Deviation was -15.18. Pattern Deviation was 15.38. us Higinio Connolly MD [facility] VISUAL FIELD Final Re sult * (ABNORMAL) eGFR (01/11/2024 11:10 AM CDT) Pathologist [facility] eGFR 34(L) >=60 mL/min/1. 73 m2 Comment: Interpretive Data Reference Interval Normal ?>/= 90 mL/min/1.73m2 Mildly decreased* ? 60 - 89 mL/min/1.73m2 Mildly to moderately decreased ?45 - 59 mL/min/1.73m2 Moderately to severely decreased ??30 - 44 mL/min/1.73m2 Severely decreased ?15 - 29 mL/min/1.73m2 Kidney Failure ?< 15 ??mL/min/1.73m2 *Relative to young adult level Estimated glomerular filtration rate is determined by the 2020 CKD-EPI equation recommended by the National Kidney Foundation (A Unifying Approach to GFR Estimation: Recommendations of the NKF-ASK Task Force on Reassessing the Inclusion of Race in Diagnosing Kidney Disease, JASN 2020). The CKD-EPI equation should not be used for patients with unstable renal function and has not been validated in children and those over 70. Current interpretive data was last reviewed 2021. Blood 01/11/2024 11:1 0 AM CDT 01/11/2024 11:21 AM CDT us Gautam Cope MD LAB BLOOD ORDERABLES Final Resul t [facility] Department [place] [address] * (ABNORMAL) Differential, auto (01/11/2024 11:10 AM CDT) Neutrophil abs 11.8(H) 1.5 - 6.5 K/cumm Comment:Testing performed by : [facility], [address] [place] [phone] Lymphocyte abs 1.1 0.8 - 3.3 K/cumm CERNER BJ Comment:Testing performed by : [facility], [address] [place] [phone] Monocyte abs 0.8 0.2 - 0.8 K/cumm CERNER BJ Comment:Testing performed by : [facility], [address] [place] [phone] Eosinophil abs 0.1 0.0 - 0.5 K/cumm CERNER BJ Comment:Testing performed by : [facility], [address] [place] [phone] Basophil abs 0.1 0.0 - 0.1 K/cumm CERNER BJ Comment:Testing performed by : [facility], [address] [place] [phone] Neutrophil pct 84.3 % CERNER BJ Comment: Interpretive Data Percent cell count reference ranges are not reported, since discordance with absolute values may lead to misinterpretation of CBC data. Current Interpretive Data was last revised on 2017. Testing performed by: [facility], [address] [place] [phone] Lymphocyte pct 8.2 % CERONEAL PERDOMO Comment: Interpretive Data Percent cell count reference ranges are not reported, since discordance with absolute values may lead to misinterpretation of CBC data. Current Interpretive Data was last revised on 2017. Testing performed by: [facility], [address] [place] [phone] Monocyte pct 6.1 % CERONEAL PERDOMO Comment: Interpretive Data Percent cell count reference ranges are not reported, since discordance with absolute values may lead to misinterpretation of CBC data. Current Interpretive Data was last revised on 2017. Testing performed by: [facility], [address] [place] [phone] Eosinophil pct 0.6 % CERONEAL PERDOMO Comment: Interpretive Data Percent cell count reference ranges are not reported, since discordance with absolute values may lead to misinterpretation of CBC data. Current Interpretive Data was last revised on 2017. Testing performed by: [facility], [address] [place] [phone] Basophil pct 0.8 % CERONEAL PERDOMO Comment: Interpretive Data Percent cell count reference ranges are not reported, since discordance with absolute values may lead to misinterpretation of CBC data. Current Interpretive Data was last revised on 2017. Testing performed by: [facility], [address] [place] [phone] Blood 01/11/2024 11:1 0 AM CDT 01/11/2024 11:13 AM CDT us Gautam Cope MD LAB BLOOD ORDERABLES Final Resul t [facility] Department [place] [address] * (ABNORMAL) CBC with auto differential (01/11/2024 11:10 AM CDT) WBC 14.0(H) 3.8 - 9.9 K/cumm Comment:Testing performed by : [facility], [address] [place], [place] [phone] Hgb 12.9(L) 13.0 - 17.5 g/dL CERNER BJ Comment:Testing performed by : [facility], [address] [place], [place] [phone] Hct 40.7 38.9 - 50.3 % CERNER BJ Comment:Testing performed by : [facility], [address] [place], [place] [phone] Plt 381 150 - 400 K/cumm CERNER BJ Comment:Testing performed by : [facility], [address] [place], [place] [phone] MPV 7.6 6.8 - 10.4 fL CERNER BJ Comment:Testing performed by : [facility], [address] [place], [place] [phone] RBC 4.67 4.30 - 5.80 M/cumm CERNER BJ Comment:Testing performed by : [facility], [address] [place], [place] [phone] MCV 87.2 81.3 - 96.4 fL CERNER BJ Comment:Testing performed by : [facility], [address] [place], [place] [phone] MCH 27.7 27.1 - 33.3 pg CERNER BJ Comment:Testing performed by : [facility], [address] [place], [place] [phone] MCHC 31.8(L) 32.3 - 35.7 g/dL CERNER BJ Comment:Testing performed by : [facility], [address] [place] [address] RDW CV 15.0(H) 11.1 - 14.9 % CERNER BJ Comment:Testing performed by : [facility], [address] [place], [place] [phone] NRBC abs 0.00 0.00 - 0.01 K/cumm CERNER BJ Comment:Testing performed by : [facility], [address] [place] [phone] Blood 01/11/2024 11:1 0 AM CDT 01/11/2024 11:13 AM CDT Gautam Cope MD LAB BLOOD ORDERABLES Final Resul t Performing Organization Address [facility] Co de Phone Number [facility] [place] [address] * PSA diagnostic (01/11/2024 11:10 AM CDT) PSA-Total <0.02 <=6.20 ng/mL Comment: Interpretive Data ?AGE ? SEX ?REFERENCE INTERVAL 0 minutes-150 years ?Female ?None 0 minutes-49 years ? Male ?None ? 50-59 years ? Male ?0-3.90 ? 60-69 years ? Male ?0-5.40 ? 70-79 years ? Male ?0-6.20 ? 80-150 years ?Male ?0-6.20 The Dayami PSA Total assay procedure was used. Results from different manufacturers or methods may not be comparable. Serial testing should be performed using the same method. Current interpretive data last revised 21. Blood 01/11/2024 11:1 0 AM CDT 01/11/2024 11:21 AM CDT Gautam Cope MD LAB BLOOD ORDERABLES Final Resul t Performing Organization Address City/[facility]/ZIP Co de Phone Number [facility] Department [place] [address] * Lactate dehydrogenase (LD) (01/11/2024 11:10 AM CDT) Lactate dehydrogenase (LDH) 191 100 - 250 Units/L Blood 01/11/2024 11:1 0 AM CDT 01/11/2024 11:21 AM CDT us Gautam Cope MD LAB BLOOD ORDERABLES Final Resul t [facility] Department [place] [address] * (ABNORMAL) Comprehensive metabolic panel (01/11/2024 11:10 AM CDT) Pathologist [facility] Sodium 141 135 - 145 mmol/L Potassium, pl 4.7 3.3 - 4.9 mmol/L [facility] Chloride 103 97 - 110 mmol/L [facility] CO2 31 22 - 32 mmol/L [facility] Anion gap 7 2 - 15 mmol/L [facility] BUN 39(H) 6 - 25 mg/dL [facility] Creatinine 1.93(H) 0.80 - 1.30 mg/dL [facility] Glucose 152 70 - 199 mg/dL [facility] Comment: Interpretive Data Fasting glucose >/= 126 mg/dl is diagnostic for diabetes. ?? Fasting is defined as no caloric intake for at least 8 hours. Fasting glucose between 100 mg/dl to 125 mg/dl is diagnostic of prediabetes. In a patient with classic symptoms of hyperglycemia or hyperglycemic crisis, a random glucose >/= 200 mg/dl is diagnostic for diabetes. In the absence of unequivocal hyperglycemia, results should be confirmed by repeat testing. The classification and Diagnosis of Diabetes Diabetes Care 202; 46: S19-S40. Current interpretive data was last revised 2022. Calcium 9.1 8.5 - 10.3 mg/dL [facility] Bilirubin, total 0.5 0.1 - 1.2 mg/dL [facility] Protein, pl 6.7 6.5 - 8.5 g/dL [facility] Albumin 3.6 3.5 - 5.0 g/dL [facility] Alk phos 140(H) 40 - 130 Units/L [facility] ALT 9 7 - 55 Units/L [facility] AST 14 10 - 50 Units/L [facility] Blood 01/11/2024 11:1 0 AM CDT 01/11/2024 11:21 AM CDT Gautam Cope MD LAB BLOOD ORDERABLES Final Resul t Performing Organization Address [facility] de Phone Number [facility] [place] [address] * (ABNORMAL) Hemoglobin A1c (10/19/2023 11:05 AM CDT) Pathologist [facility] Hgb A1C 8.0(H) 4.0 - 5.6 % Estimated Average Glucose 183 mg/dL [facility] Comment: The ADA recommends reporting an estimated Average Glucose (eAG) with all Hemoglobin A1c results using the equation derived from a study of 507 normal and diabetic adults. ??Minority populations were underrepresented and children were not included. ?? (Diabetes Care 2020; 43(S1): S66-S76). ??The eAG is not equivalent to a fasting glucose. Blood 10/19/2023 11:0 5 AM CDT 10/19/2023 11:23 AM CDT Gautam Cope MD LAB BLOOD ORDERABLES Final Resul t Performing Organization Address [facility] de Phone Number [facility] Department [place] [address] * (ABNORMAL) Lipid panel (03/08/2023 11:55 AM TEXTILE SCREEN MAKER) Pathologist [facility] Cholesterol 193 30 - 199 mg/dL [facility] Comment: Interpretive Data Ages < or = 19 years ??Acceptable: ? <170 mg/dL ??Borderline high: ??170-199 mg/dL ??High: ? >or= 200 mg/dL Ages > or = 20 years ??Desirable: ?<200 mg/dL ??Borderline high: ??200-239 mg/dL ??High: ? >or= 240 mg/dL Literature References: 1. Expert Panel on Integrated Guidelines for Cardiovascular Health and Risk Reduction in Children and Adolescents. Pediatrics 2011;128:S213 2. NCEP Expert Panel. Circulation 2004;110:227 Current Interpretive Data was last revised on 2017. Triglycerides 250(H) <=149 mg/dL [facility] Comment: Interpretive Data Ages < or = 9 years ??Acceptable: ? <75 mg/dL ??Borderline high: ??75-99 mg/dL ??High: ? >or= 100 mg/dL Ages 10 to 20 years ??Acceptable: ? <90 mg/dL ??Borderline high: ??90-129 mg/dL ??High: ? >or= 130 mg/dL Ages > or = 20 years ??Desirable: ?<150 mg/dL ??Borderline high: ??150-199 mg/dL ??High: ? 200-499 mg/dL ?Very high: ?? >or= 499 mg/dL Literature References: 1. Expert Panel on Integrated Guidelines for Cardiovascular Health and Risk Reduction in Children and Adolescents. Pediatrics 2011;128:S213 2. NCEP Expert Panel. Circulation 2004;110:227 Current Interpretive Data was last revised on 2017. HDL 36(L) >=40 mg/dL [facility] Comment: Interpretive Data Ages < or = 19 years ??Acceptable: ? >45 mg/dL ??Borderline low: ?? 40-45 mg/dL ??Low: ? <40 mg/dL Ages > or = 20 years ??Desirable: ?>or= 60 mg/dL ??Low: ? <40 mg/dL Literature References: 1. Expert Panel on Integrated Guidelines for Cardiovascular Health and Risk Reduction in Children and Adolescents. Pediatrics 2011;128:S213 2. NCEP Expert Panel. Circulation 2004;110:227 Current Interpretive Data was last revised on 2017. LDL, calculated 107 <=129 mg/dL [facility] Comment: Interpretive Data Ages < or = 19 years ??Acceptable: ? <110 mg/dL ??Borderline high: ??110-129 mg/dL ??High: ?>or= 130 mg/dL Ages > or = 20 years ??Optimal: ? <100 mg/dL ??Near optimal: ?100-129 mg/dL ??Borderline high: ?? 130-159 mg/dL ??High: ?>160 mg/dL Literature References: 1. Expert Panel on Integrated Guidelines for Cardiovascular Health and Risk Reduction in Children and Adolescents. Pediatrics 2011;128:S213 2. NCEP Expert Panel. Circulation 2004;110:227 Current Interpretive Data was last revised on 2017. Non-HDL Cholesterol 157 mg/dL [facility] Comment: Interpretive Data Ages < or = 19 years ??Acceptable: ?<120 mg/dL ??Borderline high: ??120-144 mg/dL ??High: ?>145 mg/dL Ages > or = 20 years ??When triglycerides are >200 mg/dL, Non-HDL cholesterol is a secondary target of ? therapy with treatment goals that are 30 mg/dL greater than the LDL cholesterol target. ? Literature References: 1. Expert Panel on Integrated Guidelines for Cardiovascular Health and Risk Reduction in Children and Adolescents. Pediatrics 2011;128:S213 2. NCEP Expert Panel. Circulation 2004;110:227 Current Interpretive Data was last revised on 2017. Chol/HDL ratio 5 [facility] Blood 03/08/2023 11:5 5 AM TEXTILE SCREEN MAKER 03/08/2023 3:48 PM TEXTILE SCREEN MAKER us Kraig Ching MD LAB BLOOD ORDERABLES Final Re sult Performing Organization Address [facility] de Phone Number [facility] [place] [address] * (ABNORMAL) Albumin Creatinine Ratio, Urine (01/01/2023 10:40 AM CDT) Albumin Ur 227.3 mg/L [facility] Comment: Interpretive Data No reference range established. Current interpretive data was last revised 2018. Creatinine Ur 66.5 mg/dL [facility] Comment: Interpretive Data No reference range established. Current interpretive data was last revised 2018. Albumin Creatinine Ratio, Ur 342(H) 1 - 29 mg/g [facility] Urine 01/01/2023 10:4 0 AM CDT 01/01/2023 10:45 AM CDT Kraig Ching MD LAB URINE ORDERABLES Final Re sult Performing Organization Address [facility] de Phone Number [facility] [place] [address] * DIABETES EYE EXAM (06/29/2018) Pathologist [facility] Diabetic Eye Exam Normal Historical Provider HEALTH MAINTENANCE Final Result from Last 3 Months or Most Recently Relevant to Health Maintenance Insurance [facility] MEDICARE T MEDICARE T MEDICARE Advance Directives For more information, please contact: [phone] * Full Code (Latest Code Status on File) Date Activated Date Inactivated Comments 12/16/2017 2:44 PM 12/16/2017 7:18 PM Care Teams Ship'S Master Relationship Specialty Start Date End Date Kraig Ching MD [address] [place] [address] PCP - General 07/10/16 Gautam Cope MD [address] [place] [address] Medical Oncologist/Manager Membership Medical Oncology 08/18/18 Tramaine Roe MD [address] [place] [address] Referring Physician Urology 08/18/18 Sukhwinder Uribe MD [address] [place] [address] Consulting Physician Urology 08/18/18 Shay Guillermo MD [address] [place] [address] Referring Physician Urology 08/18/18 Marsha Landis, RN Registered Nurse 11/17/18
--- OUTSIDE RECORDS SUMMARY | 2024-03-31 04:51 | XMS_ITS | Encounter Summary ---
Author Organization [facility] Address [facility]. [place], [place] [id number] [place] [address] Care Team Providers Care Parachute Rigger Name Role Phone Unavailable Primary Care Provider Unavailabl e Encounter Details Date Type Department Care Team (Late st Contact Info) Description 07/06/1998 [place] [address] , Generic Conversion, Social History Tobacco Use Types Packs/Day Years Used Date Smoking Tobacco: Never Assessed Sex and Gender Information Value Date Recorded Sex Assigned at Not on file Legal Sex Male 7:57 PM CDT Gender Identity Not on file Sexual Orientation Not on file documented as of this encounter Plan of Treatment Not on file documented as of this encounter Visit Diagnoses Not on filedocumented in this encounter
--- OUTSIDE RECORDS SUMMARY | 2024-03-31 04:52 | XMS_ITS | Encounter Summary ---
Author Organization [facility] Healthcare Address [address] [place] [address] Care Team Providers Care Health Education Assistant Name Role Phone Kraig Ching MD Primary Care Provider Gautam Cope MD Unavailable Tramaine Roe MD Unavailable [phone] Sukhwinder Uribe MD Unavailable [phone] Shay Guillermo MD Unavailable [phone] Marsha Landis RN Unavailable Unavailab le Reason for Visit * Consultation (Routine) - Authorized Specialty Diagnoses / Procedures Referred By Contac t Referred To Contact Oncology Diagnoses Prostate cancer (HCC) Tramaine Roe MD [address] [place] [address] Phone: tel: fax: Gautam Cope MD [address] [facility] ONCOLOGY, [address] [place] [address] Phone: tel: fax: Referral ID Status Reason Start Date Expiration Date Visits Requested Visits Authorized [id number] Authorized Specialty Services Required 08/15/2018 04/11/2024 99 99 Encounter Details Date Type Department Care Team (Late st Contact Info) Description 01/11/2024 11:00 AM CDT Lab [facility] - [facility] [address] [facility] [address] [place] [address] Prostate cancer (HCC) Social History Tobacco Use Types Packs/Day Years [...] on file 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 Author ZAK General Goal - Patient is knowledgeable about condition when worsening and how to respond ACO Care Management No change(09/06 4:37 PM CDT) No Ilene Fragoso, RN Note: Problem: Knowledge deficit related to [...] Care Management No change(09/06 4:37 PM CDT) No Ilene Fragoso, RN Note: Problem: Knowledge deficit - Complications of [...] to monitor diabetes and kidney status, etc. [facility] Chronic Pain Care Plan Chronic Care Management No change(03/23 1:47 PM QUANTITATIVE ANALYST DEVELOPER) No Ingrid Oden, SHEA Note: Problem: Chronic Pain Goals: 1. Minimize further functional decline 2. Maximize quality of life 3. Control pain Strategies: - Activity/exercise program recommendation - Conservative stepwise pain medicine strategy with multi-disciplinary approach - Recommend healthy lifestyle strategies and compensatory methods as needed documented as of this encounter Procedures Procedure Name Priority Date/Time Associated Diagnosis Comments EGFR STAT 01/11/2024 11:10 AM CDT Prostate cancer (HCC) DIFFERENTIAL AUTO Routine 01/11/2024 11: 10 AM CDT Prostate cancer (HCC) CBC WITH AUTO DIFFERENTIAL Routine 01/11/2024 11:10 AM CDT Prostate cancer (HCC) PSA DIAGNOSTIC Routine 01/11/2024 11:10 AM CDT Prostate cancer (HCC) LACTATE DEHYDROGENASE Routine 01/11/2024 11:10 AM CDT Prostate cancer (HCC) COMPREHENSIVE METABOLIC PANEL STAT 01/11/2024 11:10 AM CDT Prostate cancer (HCC) documented in this encounter Results * (ABNORMAL) eGFR (01/11/2024 11:10 AM CDT) eGFR 34(L) >=60 mL/min/1. 73 m2 Comment: [...] of Race in Diagnosing Kidney Disease, JASN 202). The CKD-EPI equation should not be used for patients with unstable renal function and has not been validated in children and those over 70. Current interpretive data was last reviewed 2021. Blood 01/11/2024 11:1 0 AM CDT 01/11/2024 11:21 AM CDT us Gautam Cope MD LAB BLOOD ORDERABLES Final Resul t [facility] Department of Laboratories [place], [place] [id number] * (ABNORMAL) Differential, auto (01/11/2024 11:10 AM CDT) Neutrophil abs 11.8(H) 1.5 - 6.5 K/cumm Comment:Testing performed by : [facility], [address] [place] [phone] Lymphocyte abs 1.1 0.8 - 3.3 K/cumm [facility] Comment:Testing performed by : [facility], [address] [place] [phone] Monocyte abs 0.8 0.2 - 0.8 K/cumm [facility] Comment:Testing performed by : [facility], [address] [place], [place] [phone] Eosinophil abs 0.1 0.0 - 0.5 K/cumm [facility] Comment:Testing performed by : [facility], [address] [place] [phone] Basophil abs 0.1 0.0 - 0.1 K/cumm [facility] Comment:Testing performed by : [facility], [address] [place] [phone] Neutrophil pct 84.3 % [facility] Comment: Interpretive Data Percent cell count reference ranges are not reported, since discordance with absolute values may lead to misinterpretation of CBC data. Current Interpretive Data was last revised on 2017. Testing performed by: [facility], [address] [place] [phone] Lymphocyte pct 8.2 % [facility] Comment: Interpretive Data Percent cell count reference ranges are not reported, since discordance with absolute values may lead to misinterpretation of CBC data. Current Interpretive Data was last revised on 2017. Testing performed by: [facility], [address] [place] [phone] Monocyte pct 6.1 % [facility] Comment: Interpretive Data Percent cell count reference ranges are not reported, since discordance with absolute values may lead to misinterpretation of CBC data. Current Interpretive Data was last revised on 2017. Testing performed by: [facility], [address] [place] [phone] Eosinophil pct 0.6 % [facility] Comment: Interpretive Data Percent cell count reference ranges are not reported, since discordance with absolute values may lead to misinterpretation of CBC data. Current Interpretive Data was last revised on 2017. Testing performed by: [facility], [facility] [place] [address] Basophil pct 0.8 % [facility] Comment: Interpretive Data Percent cell count reference ranges are not reported, since discordance with absolute values may lead to misinterpretation of CBC data. Current Interpretive Data was last revised on 2017. Testing performed by: [facility], [address] [place] [phone] Blood 01/11/2024 11:1 0 AM CDT 01/11/2024 11:13 AM CDT us Gautam Cope MD LAB BLOOD ORDERABLES Final Resul t Performing Organization Address City/State/[facility] [[email or web address]] Co de Phone Number [facility] [place] [address] * PSA diagnostic (01/11/2024 11:10 AM CDT) [...] MD LAB BLOOD ORDERABLES Final Resul t [facility] [address] [facility] [place] [address] * (ABNORMAL) Comprehensive metabolic panel (01/11/2024 11:10 AM CDT) Sodium 141 135 - 145 mmol/L Potassium, pl 4.7 3.3 - 4.9 mmol/L [facility] Chloride 103 97 - 110 mmol/L [facility] CO2 31 22 - 32 mmol/L [facility] Anion gap 7 2 - 15 mmol/L [facility] BUN 39(H) 6 - 25 mg/dL [facility] Creatinine 1.93(H) 0.80 - 1.30 mg/dL [facility] Glucose 152 70 - 199 mg/dL [facility] Comment: Interpretive Data Fasting glucose [...] 2022. Calcium 9.1 8.5 - 10.3 mg/dL [facility] Bilirubin, total 0.5 0.1 - 1.2 mg/dL [facility] Protein, pl 6.7 6.5 - 8.5 g/dL [facility] Albumin 3.6 3.5 - 5.0 g/dL [facility] Alk phos 140(H) 40 - 130 Units/L [facility] ALT 9 7 - 55 Units/L [facility] AST 14 10 - 50 Units/L [facility] Blood 01/11/2024 11:1 0 AM CDT 01/11/2024 11:21 AM CDT us Gautam Cope MD LAB BLOOD ORDERABLES Final Resul t [facility] [place] [address] * (ABNORMAL) CBC with auto differential (01/11/2024 11:10 AM CDT) WBC 14.0(H) 3.8 - 9.9 K/cumm Comment:Testing performed by : [facility], [address] [place] [address] Hgb 12.9(L) 13.0 - 17.5 g/dL [facility] Comment:Testing performed by : [facility], [address] [place] [address] Hct 40.7 38.9 - 50.3 % [facility] Comment:Testing performed by : [facility], [address] [place] [address] Plt 381 150 - 400 K/cumm [facility] Comment:Testing performed by : [facility], [address] [place] [address] MPV 7.6 6.8 - 10.4 fL [facility] Comment:Testing performed by : [facility], [address] [place] [address] RBC 4.67 4.30 - 5.80 M/cumm [facility] Comment:Testing performed by : [facility], [address] [place] [address] MCV 87.2 81.3 - 96.4 fL [facility] Comment:Testing performed by : [facility], [address] [place], [place] [phone] MCH 27.7 27.1 - 33.3 pg [facility] Comment:Testing performed by : [facility], [address] [place], [place] [phone] MCHC 31.8(L) 32.3 - 35.7 g/dL [facility] Comment:Testing performed by : [facility], [address] [place], [place] [phone] RDW CV 15.0(H) 11.1 - 14.9 % [facility] Comment:Testing performed by : [facility], [address] [place], [place] [phone] NRBC abs 0.00 0.00 - 0.01 K/cumm [facility] Comment:Testing performed by : [facility], [address] [place], [place] [phone] Blood 01/11/2024 11:1 0 AM CDT 01/11/2024 11:13 AM CDT us Gautam Cope MD LAB BLOOD ORDERABLES Final Resul t Performing Organization Address City/[facility] [[email or web address]] Co de Phone Number [facility] [place] [address] * Lactate dehydrogenase (LD) (01/11/2024 11:10 AM CDT) Lactate dehydrogenase (LDH) 191 100 - 250 Units/L Blood 01/11/2024 11:1 0 AM CDT 01/11/2024 11:21 AM CDT us Gautam Cope MD LAB BLOOD ORDERABLES Final Resul t Performing Organization Address [facility]/ZIP Co de Phone Number [facility] [place] [address] documented in this encounter Visit Diagnoses Diagnosis Prostate cancer (HCC) Malignant neoplasm of prostate documented in this encounter Orders Appointment Requests Count Last Ordered Date Fi rst Ordered Date ONCBCN LAB APPOINTMENT 1 01/11/2024 documented in this encounter Care Teams Health Education Assistant Relationship Specialty Start Date End Date Kraig Ching MD [address] [place] [address] PCP - General 07/10/16 Gautam Cope MD [address] [place] [address] Medical Oncologist/Health Sciences Program Coordinator Medical Oncology 08/18/18 Tramaine Roe MD [address] [place] [address] Referring Physician Urology 08/18/18 Sukhwinder Uribe MD [address] [place] [address] Consulting Physician Urology 08/18/18 Shay Guillermo MD [address] [place] [address] Referring Physician Urology 08/18/18 Marsha Landis, RN Registered Nurse 11/17/18 documented as of this encounter
--- OUTSIDE RECORDS SUMMARY | 2024-03-31 04:52 | XMS_ITS | Encounter Summary ---
Author Organization [facility] Healthcare Address [address] [place] [address] Care Team Providers Care Paleology Teacher Name Role Phone Kraig Ching MD Primary Care Provider [phone] Gautam Cope MD Unavailable Tramaine Roe MD Unavailable [phone] Sukhwinder Uribe MD Unavailable [phone] Shay Guillermo MD Unavailable [phone] Marsha Landis RN Unavailable Unavailab le Encounter Details Date Type Department Care Team (Late st Contact Info) Description 08/06/2023 Orders Only [facility] Medical Group Cardiology [address] [place] [address] Meño Johnson MD [address] [facility] [address] [place] [address] Social History Tobacco Use Types Packs/Day Years Used Date Smoking Tobacco: Former Cigarettes 0.3 52 1 958 - 2010 Passive Smoke Exposure: Past Smokeless Tobacco: Never [...] points, staff should administer the PHQ-9) 0 03/08/2023 Hunger Vital Sign Answer Date Recorded Worried [...] on file 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 Author ZAK General Goal - Patient is knowledgeable about condition when worsening and how to respond ACO Care Management No change(09/06 4:37 PM CDT) Ilene Yadav RN Note: Problem: Knowledge deficit related to [...] Management No change(09/06 4:37 PM CDT) Ilene Yadav RN Note: Problem: Knowledge deficit - Complications [...] to monitor diabetes and kidney status, etc. [facility] Chronic Pain Care Plan Chronic Care Management No change(03/23 1:47 PM STICK PULLER) No Ingrid Oden RN Note: Problem: Chronic Pain Goals: 1. Minimize further functional decline 2. Maximize quality of life 3. Control pain Strategies: - Activity/exercise program recommendation - Conservative stepwise pain medicine strategy with multi-disciplinary approach - Recommend healthy lifestyle strategies and compensatory methods as needed documented as of this encounter Procedures Procedure Name Priority Date/Time Associated Diagnosis Comments CARDIOLOGY DOCUMENT SCAN Routine 10:50 AM CDT CARDIOLOGY DOCUMENT SCAN Routine 024 10:45 AM CDT CARDIOLOGY DOCUMENT SCAN Routine 024 10:36 AM CDT documented in this encounter Results * Cardiology Document Scan (08/05/2023 10:50 AM CDT) Anatomical Region Laterality Modality Other us Meño Johnson MD CV CARDIAC SERVICES PROC EDURES Final Result * Cardiology Document Scan (08/04/2023 10:45 AM CDT) Anatomical Region Laterality Modality Other us Meño Johnson MD CV CARDIAC SERVICES PROC EDURES Final Result * Cardiology Document Scan (08/04/2023 10:36 AM CDT) Anatomical Region Laterality Modality Other us Meño Johnson MD CV CARDIAC SERVICES PROC EDURES Final Result documented in this encounter Visit Diagnoses Not on filedocumented in this encounter Care Teams Paleology Teacher Relationship Specialty Start Date End Date Kraig Ching MD [address] [facility] [address] [place] [address] PCP - General 07/10/16 Gautam Cope MD [address] [facility] [address] [place] [address] Medical Oncologist/Assessment Clinician Medical Oncology 08/18/18 Tramaine Roe MD [address] [facility] [address] [place] [address] Referring Physician Urology 08/18/18 Sukhwinder Uribe MD [address] [facility] [address] [place] [address] Consulting Physician Urology 08/18/18 Shay Guillermo MD [address] [facility] [address] [place] [address] Referring Physician Urology 08/18/18 Marsha Landis, RN Registered Nurse 11/17/18 documented as of this encounter
--- OUTSIDE RECORDS SUMMARY | 2024-03-31 04:52 | XMS_ITS | Encounter Summary ---
Author Organization [facility] Healthcare Address [address] [place] [address] Care Team Providers Care Typing Secretary Name Role Phone Kraig Ching MD Primary Care Provider [phone] Gautam Cope MD Unavailable Tramaine Roe MD Unavailable [phone] Sukhwinder Uribe MD Unavailable [phone] Shay Guillermo MD Unavailable Marsha Landis RN Unavailable Unavailab le Encounter Details Date Type Department Care Team (Late st Contact Info) Description 01/10/2024 12:00 PM CDT Office Visit [facility] [address] [facility] [address] [place] [address] Kraig Ching MD [address] [facility] [address] [place] [address] Primary hypertension (Primary Dx); Type 2 diabetes mellitus with stage 3a chronic kidney disease, with long-term current use of insulin (HCC); Prostate cancer (HCC); Fatigue, unspecified type Social History Tobacco Use Types Packs/Day Years [...] on file 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 Gender Identity Not on file Sexual Orientation Not on file documented as of this encounter Last Filed Vital Signs Vital Sign Reading Time Taken Comments Blood Pressure 132/80 01/10/2024 11:21 AM CDT Pulse 76 01/10/2024 11:21 AM CDT Temperature 37 ??C (98.6 ??F) 01/10/2024 11:21 AM CDT Respiratory Rate 18 01/10/2024 11:21 AM CDT Oxygen Saturation 98% 01/10/2024 11:21 AM CDT Inhaled Oxygen Concentration - - Weight 93.4 kg (206 lb) 01/10/2024 11:21 AM CDT Height 177.8 cm (5' 10 ) 01/10/2024 11:21 AM CDT Body Mass Index 29.56 01/10/2024 11:21 AM CDT documented in this encounter Ordered Prescriptions Prescription Sig Dispense Quantity Refills Last Filled Start Date End Date oxyCODONE (ROXICODONE) 5 mg immediate release tabletIndications:P ain Take 1 tablet (5 mg total) by mouth every 6 (six) hours as needed for pain 60 tablet 01/10/2024 documented in this encounter Progress Notes * Kraig Ching MD - 01/10/2024 12:00 PM CDT Subjective/Objective Patient ID: David Wei is a 83 y.o. male. Chief Complaint Hypertension HPI 1.HTN.He is prescribed carvedilol,lisimopril and chlorthalidone. His lisinopril was recently increased by Nephrology. His blood pressure is controlled at home. 2.Diabetes.He reports compliance with insulin and Jardiance.His HgbA1C was 8 on 10/19/23. Diabetes iscomplicated by CKD. His creatinine was 2.14 on 10/19/23.Diabetes is complicated by hyperlipidemia. Hehas a statin allergy;he tolerates pravastatin. 3.Fatigue. He complained of fatigue at her last visit. Carvedilol was decreased at his last visit. He notes energy is improved. 4.Prostate cancer. He follows with Oncology. His PSA was <.02 on 10/19/23. Review of Systems Constitutional: Positive for fatigue. HENT: Negative for sore throat. Eyes: Negative for visual disturbance. Respiratory: Negative for shortness of breath. Cardiovascular: Negative for chest pain. Gastrointestinal: Negative for abdominal pain. Genitourinary: Negative for hematuria. Musculoskeletal: Positive for arthralgias, back pain and gait problem. Skin: Negative for rash. Neurological: Negative for dizziness. BP 132/80 (BP Location: Right arm, Patient Position: Sitting) Pulse 76 Temp 37 ??C (98.6 ??F) (Temporal) Resp 18 Ht 177.8 cm (5' 10 ) Wt 93.4 kg (206 lb) SpO2 98% BMI 29.56 kg/m?? Physical Exam Constitutional: Appearance: He is well-developed. HENT: Head: Normocephalic. Eyes: Pupils: Pupils are equal, round, and reactive to light. Cardiovascular: Rate and Rhythm: Normal rate and regular rhythm. Pulmonary: Effort: Pulmonary effort is normal. Breath sounds: Normal breath sounds. Musculoskeletal: General: Normal range of motion. Feet: Right Foot: Monofilament exam: normal. Protective Sensation: 2 sites tested. 2 sites sensed. Left Foot: Monofilament exam: normal. Protective Sensation: 2 sites tested. 2 sites sensed. Skin: General: Skin is warm. Neurological: Mental Status: He is alert. Assessment/Plan Diagnoses and all orders for this visit: Primary hypertension (I10) (Primary) Assessment & Plan: Hypertension is controlled. Continue current regimen. Type 2 diabetes mellitus with stage 3a chronic kidney disease, with long-term current use of insulin (HCC) (E11.22, N18.31, Z79.4) Assessment & Plan: Continue current regimen.Limit nephrotoxins.Reviewed creatinine. Avoid NSAIDS. Prostate cancer (HCC) (C61) Assessment & Plan: Follow with Oncology. Continue Zytiga. Fatigue, unspecified type (R53.83) Assessment & Plan: Symptoms are improved with lowering carvedilol. Other orders - oxyCODONE (ROXICODONE) 5 mg immediate release tablet; Take 1 tablet (5 mg total) by mouth every 6(six) hours as needed for pain documented in this encounter Miscellaneous Notes * Assessment & Plan Note - Kraig Ching MD - 01/10/2024 11:45 AM CDT Associated Problem(s): Fatigue Symptoms are improved with lowering carvedilol. * Assessment & Plan Note - Kraig Ching MD - 01/10/2024 6:58 AM CDT Associated Problem(s): Prostate cancer (HCC) Follow with Oncology. Continue Zytiga. * Assessment & Plan Note - Kraig Ching MD - 01/10/2024 6:56 AM CDT Associated Problem(s): Type 2 diabetes mellitus with stage 3a chronic kidney disease, with long-term current use of insulin (HCC) Continue current regimen.Limit nephrotoxins.Reviewed creatinine. Avoid NSAIDS. * Assessment & Plan Note - Kraig Ching MD - 01/10/2024 6:56 AM CDT Associated Problem(s): Hypertension Hypertension is controlled. Continue current regimen. documented in this encounter Plan of Treatment Not on [...] to monitor diabetes and kidney status, etc. [facility] Chronic Pain Care Plan Chronic Care Management No change(03/23 1:47 PM UI SOFTWARE DEVELOPER) No Ingrid Oden, SHEA Note: Problem: Chronic Pain Goals: 1. Minimize further functional decline 2. Maximize quality of life 3. Control pain Strategies: - Activity/exercise program recommendation - Conservative stepwise pain medicine strategy with multi-disciplinary approach - Recommend healthy lifestyle strategies and compensatory methods as needed documented as of this encounter Visit Diagnoses Diagnosis Primary hypertension- Primary Unspecified essential hypertension Type 2 diabetes mellitus with stage 3a chronic kidney disease, with long-term current use of insulin (HCC) Prostate cancer (HCC) Malignant neoplasm of prostate Fatigue, unspecified type documented in this encounter Discontinued Medications Medication Sig Discontinue Reason Start Date End Da te oxyCODONE (ROXICODONE) 5 mg immediate release tabletIndications:Pain Take 1 tablet (5 mg total) by mouth every 6 (six) hours as needed for pain Reorder 11/12/2023 01/10/2024 documented as of this encounter Care Teams Typing Secretary Relationship Specialty Start Date End Date Kraig Ching MD [address] [place] [address] PCP - General 07/10/16 Gautam Cope MD [address] [place] [address] Medical Oncologist/Secretary Of Police Medical Oncology 08/18/18 Tramaine Roe MD [address] [place] [address] Referring Physician Urology 08/18/18 Sukhwinder Uribe MD [address] [place] [address] Consulting Physician Urology 08/18/18 Shay Guillermo MD [address] [facility] [address] [place] [address] Referring Physician Urology 08/18/18 Marsha Landis, RN Registered Nurse 11/17/18 documented as of this encounter
--- OUTSIDE RECORDS SUMMARY | 2024-03-31 04:52 | XMS_ITS | Encounter Summary ---
Author Organization [facility] Address [address] [place] [address] Phone Care Team Providers Care Materials Clerk Name Role Phone Kraig Ching MD Primary Care Provider [phone] Gautam Cope MD Unavailable Tramaine Roe MD Unavailable [phone] Sukhwinder Uribe MD Unavailable [phone] Shay Guillermo MD Unavailable [phone] Marsha Landis RN Unavailable Unavailab le Reason for Referral * Diagnostic Imaging (Routine) - Closed Specialty Diagnoses / Procedures Referred By Saleem t Referred To Contact Diagnoses Primary open angle glaucoma (POAG) of left eye, moderate stage Procedures Kurtz Visual Field - OS - Left Eye Higinio Connolly MD [address] [facility] [address] [place] [address] Phone: tel: fax: [facility] (All Locations) Referral ID Status Reason Start Date Expiration Date Visits Re quested Visits Authorized [id number] Closed 10/07/2023 11/05/2024 1 1 * Diagnostic Imaging (Routine) - Authorized Specialty Diagnoses / Procedures Referred By Contulices t Referred To Contact Diagnoses Primary open angle glaucoma (POAG) of left eye, mild stage Procedures Kurtz Visual Field - OU - Both Eyes Higinio Connolly MD [address] [facility] [address] [place] [address] Phone: tel: fax: [facility] (All Locations) Referral ID Status Reason Start Date Expiration Date V isits Requested Visits Authorized [id number] Authorized 10/02/2023 10/31/2024 1 1 Reason for Visit * Reason Comments RETURN - 3 MO for HVF, DIL EXAM & GLC OC T * Diagnostic Imaging (Routine) - Closed Specialty Diagnoses / Procedures Referred By Contac t Referred To Contact Diagnoses Glaucoma suspect of both eyes Procedures Kurtz Visual Field - OU - Both Eyes Higinio Connolly MD [address] [address] Phone: tel: fax: [facility] (All Locations) Referral ID Status Reason Start Date Expiration Date Visits Re quested Visits Authorized [id number] Closed 06/25/2023 07/24/2024 1 1 Encounter Details Date Type Department Care Team (Late st Contact Info) Description 10/07/2023 11:00 AM CDT Office Visit [facility] Ophthalmology [address] [facility] [address] [place] [address] Higinio Connolly MD [address] [address] Primary open angle glaucoma (POAG) of left eye, moderate stage (Primary Dx); Ocular hypertension of right eye; Type 2 diabetes mellitus with stage 3a chronic kidney disease, with long-term current use of insulin (HCC); Pseudophakia of both eyes; Glaucoma suspect of both eyes Social History Tobacco Use Types Packs/Day Years [...] on file 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 Return in four months for IOP check and repeat HVF OS. I stressed the importance of good compliance with drops. documented in this encounter Plan of Treatment Scheduled Orders Name Type Priority Associated Diagnoses Orde r Schedule Kurtz Visual Field - OU - Both Eyes Ophthalmology Routine Primary open angle glaucoma (POAG) of left eye, moderate stage Expected: 10/09/2023, Expires: 10/01/2024 documented as of this encounter Goals Goal [...] to monitor diabetes and kidney status, etc. [facility] Chronic Pain Care Plan Chronic Care Management No change(03/23 1:47 PM DIRECTOR OF PROPERTY MANAGEMENT) No Ingrid Oden, SHEA Note: Problem: Chronic Pain Goals: 1. Minimize further functional decline 2. Maximize quality of life 3. Control pain Strategies: - Activity/exercise program recommendation - Conservative stepwise pain medicine strategy with multi-disciplinary approach - Recommend healthy lifestyle strategies and compensatory methods as needed documented as of this encounter Procedures Procedure Name Priority Date/Time Associated Diagnosis Comments OCT, OPTIC NERVE - OU - BOTH EYES Routine 10/07/2023 11:29 AM CDT Glaucoma suspect of both eyes KURTZ VISUAL FIELD - OU - BOTH EYES Routine 10/07/2023 11:29 AM CDT Glaucoma suspect of both eyes documented in this encounter Results * Kurtz Visual Field - OS - Left Eye (01/27/2024 11:46 AM CDT) Pattern Deviation OS 15.38 CONTINUUM Mean Deviation OS -15.18 CONTINUUM Anatomical Region Laterality Modality Head Visual Field Narrative 01/27/2024 11:46 AM CDT Fixation was borderline. Cooperation was good. Reliability was good. Progression has been stable. Foveal threshold was normal. Findings include inferior altitudinal defect. Mean Deviation was -15.18. Pattern Deviation was 15.38. Higinio Connolly MD OPH VISUAL FIELD Final Re sult * OCT, Optic Nerve - OU - Both Eyes (10/07/2023 11:29 AM CDT) RNFL OS 65 micrometers CONTINUUM RNFL OD 79 micrometers CONTINUUM Anatomical Region Laterality Modality Head Optical Coherenc e Tomography Narrative 10/07/2023 11:29 AM CDT Right Eye Reliability was good. Temporal progression was stable. Temporal thickness was normal. Superior progression was stable. Superior thickness was normal. Nasal progression was stable. Nasal thickness was normal. Inferior progression was stable. Inferior thickness was normal. Average RNFL thickness 79 micrometers. Left Eye Reliability was good. Temporal progression was stable. Temporal thickness was normal. Superior progression was stable. Superior thickness was showing abnormal thinning. Nasal progression was stable. Nasal thickness was normal. Inferior progression was stable. Inferior thickness was normal. Average RNFL thickness 65 micrometers. 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, with long-term current use of insulin (HCC) Pseudophakia of both eyes Lens replaced by other means Glaucoma suspect of both eyes Unspecified preglaucoma Primary open angle glaucoma (POAG) of left eye, moderate stage- Primary Ocular hypertension of right eye documented in this encounter Discontinued Medications Medication Sig Discontinue Reason Start Date End Da te ketorolac (ACULAR) 0.5 % ophthalmic solution Instill one drop into surgical eye three time daily starting two days pre op 12/08/2022 10/07/2023 prednisoLONE acetate (PRED FORTE) 1 % ophthalmic suspension Instill 1 drop into surgical eye three times daily starting after surgery 12/08/2022 10/07/2023 documented as of this encounter Eye Exam Visual Acuity (Snellen - Linear) Right eye Left eye Dist sc 20/20 20/25 +2 Tonometry (Applanation, 11:07 AM) Right eye Left eye Pressure 13 15 Did not use gtts this morning Pupils Dark Light Shape React APD Right eye 3 2.5 Round Minimal None Left eye 3 2.5 Round Minimal None Visual Steiner (Counting fingers) Right eye Left eye Full Restrictions Partial outer keys perior temporal, inferior temporal, inferior nasal deficiencies Extraocular Movement Right eye Left eye Full Full Neuro/Psych Oriented x3: Yes Mood/Affect: Normal Dilation Both eyes: 1.0% Mydriacyl @ 11:07 AM External Exam Right eye Left eye External Normal Normal Slit Lamp Exam Right eye Left eye Lids/Lashes Dermatochalasis - lower lid Derm atochalasis - lower lid Conjunctiva/Sclera White and quiet White and dereck et Cornea Clear Clear Anterior Chamber Deep and quiet Deep and quiet Iris Round and reactive Round and melo ctive Lens Posterior chamber in traocular lens, no Posterior capsular opacification Posterior chamber intraocular lens, no Posterior capsular opacification Anterior Vitreous Posterior vitreous detachment Posterior vitreous detachment Fundus Exam Right eye Left eye Disc Normal Normal C/D Ratio 0.3 0.6 x 0.7 (absen t superior and temporal rims) Macula Normal Normal Vessels Normal Normal Periphery Normal Normal Care Teams Materials Clerk Relationship Specialty Start Date End Date Kraig Chnig MD [address] [facility] [address] [place] [address] PCP - General 07/10/16 Gautam Cope MD [address] [facility] [address] [place] [address] Medical Oncologist/Hand Cloth Folder Medical Oncology 08/18/18 Tramaine Roe MD [address] [facility] [address] [place] [address] Referring Physician Urology 08/18/18 Sukhwinder Uribe MD [address] [facility] [address] [place] [address] Consulting Physician Urology 08/18/18 Shay Guillermo MD [address] [facility] [address] [place] [address] Referring Physician Urology 08/18/18 Marsha Landis, RN Registered Nurse 11/17/18 documented as of this encounter
--- OUTSIDE RECORDS SUMMARY | 2024-03-31 04:52 | XMS_ITS | Encounter Summary ---
Author Organization [facility] Healthcare Address [address] [place] [address] Care Team Providers Care Recreation Professor Name Role Phone Kraig Ching MD Primary Care Provider [phone] Gautam Cope MD Unavailable Tramaine Roe MD Unavailable [phone] Sukhwinder Uribe MD Unavailable [phone] Shay Guillermo MD Unavailable [phone] Marsha Landis RN Unavailable Unavailab le Encounter Details Date Type Department Care Team (Late st Contact Info) Description 11/12/2023 Orders Only [facility] [address] [facility] [address] [place] [address] Kraig Ching MD [address] [facility] [address] [place] [address] Social History Tobacco Use Types Packs/Day Years [...] on file 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 Minimize further functional decline 2. Maximize quality of life 3. Control pain Strategies: - Activity/exercise program recommendation - Conservative stepwise pain medicine strategy with multi-disciplinary approach - Recommend healthy lifestyle strategies and compensatory methods as needed documented as of this encounter Visit Diagnoses Not on filedocumented in this encounter Discontinued Medications Medication Sig Discontinue Reason Start Date End Da te oxyCODONE (ROXICODONE) 5 mg immediate release tabletIndications:Pain Take 1 tablet (5 mg total) by mouth every 6 (six) hours as needed for pain Reorder 11/11/2023 11/12/2023 documented as of this encounter Care Teams Recreation Professor Relationship Specialty Start Date End Date Kraig Ching MD [address] [facility] [address] [place] [address] PCP - General 07/10/16 Gautam Cope MD [address] [facility] [address] [place] [address] Medical Oncologist/Parking Regulation Enforcement Officer Medical Oncology 08/18/18 Tramaine Roe MD [address] [facility] [address] [place] [address] Referring Physician Urology 08/18/18 Sukhwinder Uribe MD [address] [facility] [address] [place] [address] Consulting Physician Urology 08/18/18 Shay Guillermo MD [address] [facility] [address] [place] [address] Referring Physician Urology 08/18/18 Marsha Landis, RN Registered Nurse 11/17/18 documented as of this encounter
--- OUTSIDE RECORDS SUMMARY | 2024-03-31 04:52 | XMS_ITS | Encounter Summary ---
Author Organization [facility] Healthcare Address [address] [place] [address] Care Team Providers Care Adjunct Professor Name Role Phone Kraig Ching MD Primary Care Provider [phone] Gautam Cope MD Unavailable Tramaine Roe MD Unavailable [phone] Sukhwinder Uribe MD Unavailable [phone] Shay Guillermo MD Unavailable [phone] Marsha Landis RN Unavailable Unavailab le Encounter Details Date Type Department Care Team (Latest Contact Info) Description 08/19/2023 4:21 PM CDT - 08/19/2023 11:59 PM CDT Hospital Encounter [facility] [address] [place] [address] Discharge Disposition: Discharge to home or self care Social History Tobacco Use Types Packs/Day Years [...] on file 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 Gender Identity Not on file Sexual Orientation Not on file documented as of this encounter Medications at Time of Discharge albuterol HFA (PROVENTIL HFA,VENTOLIN HFA,PROAIR HFA) 90 mcg/actuation inhaler Inhale 2 puffs every 8 (eight) hours as needed for wheezing or shortness of breath 06/21/2022 NovoLOG 100 unit/mL (3 mL) pen for injection ADMINISTER 8 UNITS UNDER THE SKIN THREE TIMES DAILY BEFORE MEALS 3 mL 11 05/05/2023 pen needle, diabetic (BD Ultra-Fine Short Pen Needle) 31 gauge x 5/16 needle USE TO INJECT INSULIN 4 TIMES EVERY DAY DIRECTED 400 each 11 12/24/2022 predniSONE (DELTASONE) 5 mg tablet Take 1 tablet (5 mg) by mouth two times a day 60 tablet 11 08/12/2023 PreviDent 5000 Plus 1.1 % creamIndications :Prevention of Dental Caries Apply topically nightly 12/10/2022 abiraterone (ZYTIGA) 250 mg tabletIndication s:Metastatic prostate cancer. Take 4 tablets (1,000 mg total) by mouth daily Take with a glass of water, on an empty stomach at least 1 hr before or 2 hrs after food. 120 tablet 6 07/12/2023 12/02/202 4 Accu-Chek Fastclix Lancet Drum misc USE DIRECTED 204 each 05/30/2023 4 Accu-Chek Guide test strips strip USE DIRECTED TWICE DAILY 200 strip 05/30/2023 4 carvediloL (COREG) 25 mg tabletIndication s:CKD (chronic kidney disease) stage 3, GFR 30-59 ml/min ([facility]) Take 1 tablet (25 mg total) by mouth 2 (two) times a day with meals 60 tablet 11 04/20/2023 4 chlorthalidone 25 mg tablet Take 1 tablet (25 mg total) by mouth daily 90 tablet 3 10/02/2022 4 dorzolamide-gilbert loL (COSOPT) 22.3-6.8 mg/mL ophthalmic solution Administer 1 drop into both eyes 2 (two) times a day 10 mL 11 12/08/2022 4 insulin glargine (LANTUS) 100 unit/mL (3 mL) pen for injection ADMINISTER 28 UNITS UNDER THE SKIN DAILY 9 mL 11 03/08/2023 4 Januvia 25 mg tabletIndication s:Type 2 diabetes mellitus with stage 3 chronic kidney disease, without long-term current use of insulin ([facility]) TAKE 1 TABLET BY MOUTH DAILY 30 tablet 11 12/08/2022 4 ketorolac (ACULAR) 0.5 % ophthalmic solution Instill one drop into surgical eye three time daily starting two days pre op 5 mL 1 12/08/2022 4 lisinopriL (PRINIVIL,ZESTRI L) 20 mg tablet Take 1.5 tablets (30 mg total) by mouth daily 135 tablet 08/17/2023 4 oxyCODONE (ROXICODONE) 5 mg immediate release tabletIndication s:Pain Take 1 tablet (5 mg total) by mouth every 6 (six) hours as needed for pain 60 tablet 04/26/[address] (PROTONIX) 40 mg EC tablet TAKE 1 TABLET(40 MG) BY MOUTH DAILY 90 tablet 1 06/03/2023 4 pravastatin (PRAVACHOL) 20 mg tablet TAKE 1 TABLET BY MOUTH EVERY DAY 90 tablet 3 09/14/2022 4 prednisoLONE acetate (PRED FORTE) 1 % ophthalmic suspension Instill 1 drop into surgical eye three times daily starting after surgery 5 mL 1 12/08/2022 4 documented as of this encounter Discharge Disposition Disposition Code Departure Means Destination Discharge to home or self care documented in this encounter Plan of Treatment [...] Chronic Care Management No change(03/23 1:47 PM REFERRAL COORDINATOR) No Ingrid Oden, SHEA Note: Problem: Chronic Pain Goals: 1. Minimize further functional decline 2. Maximize quality of life 3. Control pain Strategies: - Activity/exercise program recommendation - Conservative stepwise pain medicine strategy with multi-disciplinary approach - Recommend healthy lifestyle strategies and compensatory methods as needed documented as of this encounter Visit Diagnoses Not on filedocumented in this encounter Care Teams Adjunct Professor Relationship Specialty Start Date End Date Kraig Ching MD [address] [place] [address] PCP - General 07/10/16 Gautam Cope MD [address] [place] [address] Medical Oncologist/Fire Apparatus Engineer Medical Oncology 08/18/18 Tramaine Roe MD [address] [place] [address] Referring Physician Urology 08/18/18 Sukhwinder Uribe MD [address] [place] [address] Consulting Physician Urology 08/18/18 Shay Guillermo MD [address] [place] [address] Referring Physician Urology 08/18/18 Marsha Landis, RN Registered Nurse 11/17/18 documented as of this encounter
--- OUTSIDE RECORDS SUMMARY | 2024-03-31 04:52 | XMS_ITS | Encounter Summary ---
Author Organization [facility] Address [address] [place] [address] Phone Care Team Providers Care Sliver Lap Machine Tender Name Role Phone Kraig Ching MD Primary Care Provider [phone] Gautam Cope MD Unavailable Tramaine Roe MD Unavailable [phone] Sukhwinder Uribe MD Unavailable [phone] Shay Guillermo MD Unavailable [phone] Marsha Landis RN Unavailable Unavailab Reason for Referral * Diagnostic Imaging (Routine) - Authorized Specialty Diagnoses / Procedures Referred By Saleem narvaez Referred To Contact Diagnoses Primary open angle glaucoma (POAG) of left eye, moderate stage Procedures OCT, Optic Nerve - OU - Both Eyes Higinio Connolly MD [address] [facility] [address] [place] [address] Phone: tel: fax: [facility] (All Locations) Referral ID Status Reason Start Date Expiration Date V isits Requested Visits Authorized [id number] Authorized 01/27/2024 02/25/2025 1 1 Reason for Visit * Reason Comments RETURN - 4 MO for HVF OS ONLY & IOP CK O U * Diagnostic Imaging (Routine) - Closed Specialty Diagnoses / Procedures Referred By Contulices t Referred To Contact Diagnoses Primary open angle glaucoma (POAG) of left eye, moderate stage Procedures Kurtz Visual Field - OS - Left Eye Higinio Connolly MD [address] [facility] [address] [address] [place] [address] Phone: tel: fax: [facility] (All Locations) Referral ID Status Reason Start Date Expiration Date Visits Re quested Visits Authorized [id number] Closed 10/07/2023 11/05/2024 1 1 Encounter Details Date Type Department Care Team (Late st Contact Info) Description 01/27/2024 11:00 AM CDT Office Visit [facility] Ophthalmology [address] [facility] [address] [place] [address] Higinio Connolly MD [address] [facility] [address] [address] [place], [place] [id number] Primary open angle glaucoma (POAG) of left eye, moderate stage (Primary Dx); Ocular hypertension of right eye Social History Tobacco Use Types Packs/Day Years [...] on file 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 Return in six months - dilated fundus exam and optic nerve OCT botheyes (OU). He previously stopped low dose aspirin on his own and I recommended that he restart that. documented in this encounter Plan of Treatment Scheduled Orders Name Type Priority Associated Diagnoses Orde r Schedule OCT, Optic Nerve - OU - Both Eyes Ophthalmology Routine Primary open angle glaucoma (POAG) of left eye, moderate stage Expected: 07/27/2024, Expires: 01/26/2025 documented as of this encounter Goals Goal Patient Goal Type Associated Problems Recent Progress Patient-Stated? Author ZAK General Goal - Patient is knowledgeable about condition when worsening and how to respond ACO Care Management No change(09/06 4:37 PM CDT) No Ilene Fragoso RN Note: Problem: Knowledge deficit related to [...] to monitor diabetes and kidney status, etc. [facility] Chronic Pain Care Plan Chronic Care Management No change(03/23 1:47 PM SPECIAL LIBRARY LIBRARIAN) No Ingrid Oden RN Note: Problem: Chronic [...] glaucoma (POAG) of left eye, moderate stage documented in this encounter Results * Kurtz Visual Field - OS - Left Eye (01/27/2024 11:46 AM CDT) Pathologist [facility] Pattern Deviation OS 15.38 CONTINUUM Mean Deviation OS -15.18 CONTINUUM Anatomical Region Laterality Modality Head Visual Field Narrative 01/27/2024 11:46 AM CDT Fixation was borderline. Cooperation was good. Reliability was good. Progression has been stable. Foveal threshold was normal. Findings include inferior altitudinal defect. Mean Deviation was -15.18. Pattern Deviation was 15.38. us Higinoi Connolly MD OPHTH VISUAL FIELD Final Re sult documented in this encounter Visit Diagnoses Diagnosis Primary open angle glaucoma (POAG) of left eye, moderate stage- Primary Ocular hypertension of right eye documented in this encounter Eye Exam Visual Acuity (Snellen - Linear) Right eye Left eye Dist sc 20/20 20/20 -1 Tonometry (Applanation, 11:48 AM) Right eye Left eye Pressure 10 14 Pupils Dark Light Shape APD Right eye 3 2 Round None Left eye 3 2 Round None Agree RW Visual Abebe Right eye Left eye Full Restrictions Total inferior t emporal, inferior nasal deficiencies See attached Extraocular Movement Right eye Left eye Full, Ortho Full, Ortho Neuro/Psych Oriented x3: Yes Mood/Affect: Normal External Exam Right eye Left eye External Normal Normal Slit Lamp Exam Right eye Left eye Lids/Lashes Normal Normal Conjunctiva/Sclera White and quiet White and dereck et Cornea Clear Clear Anterior Chamber Deep and quiet Deep and quiet Iris Round and reactive Round and melo ctive Lens Posterior chamber in traocular lens, no Posterior capsular opacification Posterior chamber intraocular lens, no Posterior capsular opacification Care Teams Sliver Lap Machine Tender Relationship Specialty Start Date End Date Kraig Ching MD [address] [facility] [address] [place] [address] PCP - General 07/10/16 Gautam Cope MD [address] [facility] [address] [place] [address] Medical Oncologist/Yard Hostler Medical Oncology 08/18/18 Tramaine Roe MD [address] [facility] [address] [place] [address] Referring Physician Urology 08/18/18 Sukhwinder Uribe MD [address] [facility] [address] [place] [address] Consulting Physician Urology 08/18/18 Shay Guillermo MD [address] [facility] [address] [place] [address] Referring Physician Urology 08/18/18 Marsha Landis, RN Registered Nurse 11/17/18 documented as of this encounter
--- OUTSIDE RECORDS SUMMARY | 2024-03-31 04:52 | XMS_ITS | Encounter Summary ---
Author Organization [facility] Healthcare Address [address] [place] [address] Care Team Providers Care Oracle Business Analyst Name Role Phone Kraig Ching MD Primary Care Provider [phone] Gautam Cope MD Unavailable Tramaine Roe MD Unavailable [phone] Sukhwinder Uribe MD Unavailable [phone] Shay Guillermo MD Unavailable [phone] Marsha Landis RN Unavailable Unavailab le Reason for Visit * Episode Based Medications (Routine) - Authorized Specialty Diagnoses / Procedures Referred By Contulices t Referred To Contact Oncology Diagnoses Prostate cancer (HCC) Procedures [place] LEUPROLIDE ACETATE SUSPNSION Leuprolide Every 3 Months - Prostate Gautam Cope MD [address] [facility] [address] [place] [address] Phone: tel: fax: [facility] In[facility] [address] [place] [address] Referral ID Status Reason Start Date Expiration Date V isits Requested Visits Authorized [id number] Authorized 09/06/2018 07/11/2024 1 50 Encounter Details Date Type Department Care Team (Late st Contact Info) Description 10/19/2023 10:30 AM CDT Lab [facility] at and [facility] [address] [facility] 7th [place] [address] Prostate cancer (HCC); Fatigue, unspecified type Social [...] on file 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 [facility] Chronic Pain Care Plan Chronic Care Management No change(03/23 1:47 PM ESTHETICIAN MAKEUP ARTIST) No Ingrid Oden, RN Note: Problem: Chronic Pain Goals: 1. Minimize further functional decline 2. Maximize quality of life 3. Control pain Strategies: - Activity/exercise program recommendation - Conservative stepwise pain medicine strategy with multi-disciplinary approach - Recommend healthy lifestyle strategies and compensatory methods as needed documented as of this encounter Procedures Procedure Name Priority Date/Time Associated Diagnosis Comments EGFR STAT 10/19/2023 11:05 AM CDT Prostate cancer (HCC) DIFFERENTIAL AUTO Routine 10/19/2023 11: 05 AM CDT Prostate cancer (HCC) THYROID FUNCTION CASCADE Routine 10/19/2023 11:05 AM CDT Fatigue, unspecified type CBC WITH AUTO DIFFERENTIAL Routine 10/19/2023 11:05 AM CDT Prostate cancer (HCC) T4, FREE Routine 10/19/2023 11:05 AM CDT Fatigue, unspecified type PSA DIAGNOSTIC Routine 10/19/2023 11:05 AM CDT Prostate cancer (HCC) LACTATE DEHYDROGENASE Routine 10/19/2023 11:05 AM CDT Prostate cancer (HCC) HEMOGLOBIN A1C Routine 10/19/2023 11:05 AM CDT Prostate cancer (HCC) VITAMIN B12 Routine 10/19/2023 11:05 AM CDT Fatigue, unspecified type COMPREHENSIVE METABOLIC PANEL STAT 10/19/2023 11:05 AM CDT Prostate cancer (HCC) documented in this encounter Results * T4, free (10/19/2023 11:05 AM CDT) Free T4 1.43 0.90 - 1.70 ng/dL Blood 10/19/2023 11:0 5 AM CDT 10/19/2023 11:29 AM CDT Narrative [facility] - 10/19/2023 12:30 PM CDT This test was reflexed from a TSH result. us Kraig Ching MD LAB BLOOD ORDERABLES Final Re sult [facility] [place] [address] * (ABNORMAL) eGFR (10/19/2023 11:05 AM CDT) eGFR 30(L) >=60 mL/min/1. 73 m2 Comment: Interpretive Data [...] Current interpretive data was last reviewed 2021. Testing performed by: [facility], [address] [place] [phone] Blood 10/19/2023 11:0 5 AM CDT 10/19/2023 11:09 AM CDT us Gautam Cope MD LAB BLOOD ORDERABLES Final Resul t [facility] Department of Laboratories [place], [place] [id number] * (ABNORMAL) Differential, auto (10/19/2023 11:05 AM CDT) Neutrophil abs 8.8(H) 1.5 - 6.6 K/cumm Comment:Testing performed by : [facility], [address] [place] [phone] Lymphocyte abs 1.1(L) 1.2 - 3.3 K/cumm [facility] Comment:Testing performed by : [facility], [address] [place] [phone] Monocyte abs 0.8 0.2 - 1.2 K/cumm [facility] Comment:Testing performed by : [facility], [address] [place] [phone] Eosinophil abs 0.1 0.0 - 0.5 K/cumm [facility] Comment:Testing performed by : [facility], [address] [place] [phone] Basophil abs 0.1 0.0 - 0.2 K/cumm [facility] Comment:Testing performed by : [facility], [address] [place] [phone] Neutrophil pct 80.5 % [facility] Comment: Interpretive Data Percent cell count reference ranges are not reported, since discordance with absolute values may lead to misinterpretation of CBC data. Current Interpretive Data was last revised on 2017. Testing performed by: [facility], [address] [place] [phone] Lymphocyte pct 10.4 % [facility] Comment: Interpretive Data Percent cell count reference ranges are not reported, since discordance with absolute values may lead to misinterpretation of CBC data. Current Interpretive Data was last revised on 2017. Testing performed by: [facility], [address] [place] [phone] Monocyte pct 7.6 % [facility] Comment:Testing performed by : [facility], [address] [place] [phone] Eosinophil pct 1.0 % [facility] Comment:Testing performed by : [facility], [address] [place] [phone] Basophil pct 0.5 % [facility] Comment:Testing performed by : [facility], [address] [place] [phone] Blood 10/19/2023 11:0 5 AM CDT 10/19/2023 11:09 AM CDT us Gautam Cope MD LAB BLOOD ORDERABLES Final Resul t [facility] [place] [address] * (ABNORMAL) Thyroid Function [place] (10/19/2023 11:05 AM CDT) TSH 4.25(H) 0.30 - 4.20 mcIUnit/mL Blood 10/19/2023 11:0 5 AM CDT 10/19/2023 11:22 AM CDT Kraig Ching MD LAB BLOOD ORDERABLES Final Re sult Performing Organization Address [facility] de Phone Number [facility] [place] [address] * (ABNORMAL) Vitamin B12 (10/19/2023 11:05 AM CDT) Pathologist [facility] Vitamin B12 227(L) 230 - 1,250 pg/mL Blood 10/19/2023 11:0 5 AM CDT 10/19/2023 11:22 AM CDT Kraig Ching MD LAB BLOOD ORDERABLES Final Re sult Performing Organization Address [facility] Phone Number [facility] [place] [address] * (ABNORMAL) Hemoglobin A1c (10/19/2023 11:05 AM CDT) [facility] Hgb A1C 8.0(H) 4.0 - 5.6 % Estimated Average Glucose 183 mg/dL [facility] Comment: The ADA recommends reporting an [...] ORDERABLES Final Resul t Performing Organization Address [facility] de Phone Number [facility] [place] [address] * Lactate dehydrogenase (LD) (10/19/2023 11:05 AM CDT) Pathologist [facility] Lactate dehydrogenase (LDH) 161 100 - 250 Units/L Comment:Testing performed by : [facility], [address] [place] [phone] Blood 10/19/2023 11:0 5 AM CDT 10/19/2023 11:09 AM CDT us Gautam Cope MD LAB BLOOD ORDERABLES Final Resul t [facility] [place] [address] * (ABNORMAL) CBC with auto differential (10/19/2023 11:05 AM CDT) Pathologist [facility] WBC 10.9(H) 3.8 - 9.8 K/cumm Comment:Testing performed by : [facility], [address] [place] [phone] Hgb 12.1(L) 13.8 - 17.2 g/dL [facility] Comment:Testing performed by : [facility], [address] [place] [phone] Hct 36.7(L) 40.7 - 50.3 % [facility] Comment:Testing performed by : [facility], [address] [place] [phone] Plt 298 140 - 440 K/cumm [facility] Comment:Testing performed by : [facility], [address] [place] [phone] MPV 7.4 6.8 - 10.4 fL [facility] Comment:Testing performed by : [address] [phone] RBC 4.14(L) 4.50 - 5.70 M/cumm [facility] Comment:Testing performed by : [address] [phone] MCV 88.6 80.0 - 97.6 fL [facility] Comment:Testing performed by : [facility], [address] [place] [phone] MCH 29.1 26.7 - 33.7 pg [facility] Comment:Testing performed by : [facility], [address] [place] [phone] MCHC 32.8 32.7 - 35.5 g/dL [facility] Comment:Testing performed by : [facility], [address] [place] [phone] RDW CV 14.7(H) 11.8 - 14.6 % [facility] Comment:Testing performed by : [facility], [address] [place] [phone] NRBC abs 0.00 0.00 - 0.01 K/cumm [facility] Comment:Testing performed by : [facility], [address] [place] [phone] Blood 10/19/2023 11:0 5 AM CDT 10/19/2023 11:09 AM CDT us Gautam Cope MD LAB BLOOD ORDERABLES Final Resul t [facility] Department of Laboratories [place], [place] [id number] * (ABNORMAL) Comprehensive metabolic panel (10/19/2023 11:05 AM CDT) Sodium 140 135 - 145 mmol/L Comment:Testing performed by : [facility], [address] [place] [phone] Potassium, pl 4.4 3.3 - 4.9 mmol/L [facility] Comment:Testing performed by : [facility], [address] [place] [phone] Chloride 104 97 - 110 mmol/L [facility] Comment:Testing performed by : [address] [phone] CO2 29 22 - 32 mmol/L [facility] Comment:Testing performed by : [facility], [address] [place] [phone] Anion gap 7 2 - 15 mmol/L [facility] Comment:Testing performed by : [facility], [address] [place] [phone] BUN 35(H) 6 - 25 mg/dL [facility] Comment:Testing performed by : [facility], [address] [place] [phone] Creatinine 2.14(H) 0.80 - 1.30 mg/dL [facility] Comment:Testing performed by : [facility], [address] [place] [phone] Glucose 110 70 - 199 mg/dL [facility] Comment: Interpretive Data Fasting glucose >/= 126 [...] Current interpretive data was last revised 2022. Testing performed by: [facility], [address] [place] [phone] Calcium 9.2 8.5 - 10.3 mg/dL [facility] Comment:Testing performed by : [facility], [address] [place] [phone] Bilirubin, total 0.6 0.1 - 1.2 mg/dL [facility] Comment:Testing performed by : [facility], [address] [place] [phone] Protein, pl 6.3(L) 6.5 - 8.5 g/dL [facility] Comment:Testing performed by : [facility], [address] [place] [phone] Albumin 3.9 3.5 - 5.0 g/dL [facility] Comment:Testing performed by : [address] [phone] Alk phos 123 40 - 130 Units/L [facility] Comment:Testing performed by : [facility], [address] [facility] [phone] ALT 9 7 - 55 Units/L [facility] Comment:Testing performed by : [facility], [address] [facility] [phone] AST 12 10 - 50 Units/L [facility] Comment:Testing performed by : [facility], [address] [facility] [phone] Blood 10/19/2023 11:0 5 AM CDT 10/19/2023 11:09 AM CDT us Gautam Cope MD LAB BLOOD ORDERABLES Final Resul t [facility] [place] [address] * PSA diagnostic (10/19/2023 11:05 AM CDT) PSA-Total <0.02 <=6.20 ng/mL Comment: [...] Current interpretive data last revised 21. Blood 10/19/2023 11:0 5 AM CDT 10/19/2023 11:22 AM CDT us Gautam Cope MD LAB BLOOD ORDERABLES Final Resul t [facility] [place] [address] documented in this encounter Visit Diagnoses Diagnosis Prostate cancer (HCC) Malignant neoplasm of prostate Fatigue, unspecified type documented in this encounter Orders Appointment Requests Count Last Ordered Date Fi rst Ordered Date ONCBCN LAB APPOINTMENT 1 10/19/2023 documented in this encounter Care Teams Oracle Business Analyst Relationship Specialty Start Date End Date Kraig Ching MD [address] [place] [address] PCP - General 07/10/16 Gautam Cope MD [address] [place] [address] Medical Oncologist/Corporate Technical Recruiter Medical Oncology 08/18/18 Tramaine Roe MD [address] [place] [address] Referring Physician Urology 08/18/18 Sukhwinder Uribe MD [address] [place] [address] Consulting Physician Urology 08/18/18 Shay Guillermo MD [address] [place] [address] Referring Physician Urology 08/18/18 Marsha Landis, RN Registered Nurse 11/17/18 documented as of this encounter
--- OUTSIDE RECORDS SUMMARY | 2024-03-31 04:52 | XMS_ITS | Encounter Summary ---
Author Organization [facility] Healthcare Address [address] [place] [address] Care Team Providers Care Air Intelligence Officer Name Role Phone Kraig Ching MD Primary Care Provider [phone] Gautam Cope MD Unavailable Tramaine Roe MD Unavailable [phone] Sukhwinder Uribe MD Unavailable Shay Guillremo MD Unavailable [phone] Marsha Landis RN Unavailable Unavailab le Encounter Details Date Type Department Care Team (Late st Contact Info) Description 10/20/2023 Orders Only [facility] [address] [place] [address] Kraig Ching MD [address] [facility] [address] [place] [address] Social History Tobacco Use Types [...] 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 [facility] Chronic Pain Care Plan Chronic Care Management No change(03/23 1:47 PM DIRECTOR OF REHABILITATION AND WELLNESS) No Ingrid Oden RN Note: Problem: Chronic Pain Goals: 1. Minimize further functional decline 2. Maximize quality of life 3. Control pain Strategies: - Activity/exercise program recommendation - Conservative stepwise pain medicine strategy with multi-disciplinary approach - Recommend healthy lifestyle strategies and compensatory methods as needed documented as of this encounter Visit Diagnoses Not on filedocumented in this encounter Care Teams Air Intelligence Officer Relationship Specialty Start Date End Date Kraig Ching MD [address] [facility] [address] [place] [address] PCP - General 07/10/16 Gautam Cope MD [address] [facility] [address] [place] [address] Medical Oncologist/Quality Assurance Inspector Medical Oncology 08/18/18 Tramaine Roe MD [address] [facility] [address] [place] [address] Referring Physician Urology 08/18/18 Sukhwinder Uribe MD [address] [facility] [address] [place] [address] Consulting Physician Urology 08/18/18 Shay Guillermo MD [address] [facility] [address] [place] [address] Referring Physician Urology 08/18/18 Marsha Landis, RN Registered Nurse 11/17/18 documented as of this encounter
--- OUTSIDE RECORDS SUMMARY | 2024-03-31 04:52 | XMS_ITS | Encounter Summary ---
Author Organization [facility] Address [address] [place] [address] Phone Care Team Providers Care Corporate Physical Security Supervisor Name Role Phone Kraig Ching MD Primary Care Provider [phone] Gautam Cope MD Unavailable Tramaine Roe MD Unavailable [phone] Sukhwinder Uribe MD Unavailable [phone] Shay Guillermo MD Unavailable [phone] Marsha Landis RN Unavailable Unavailab Reason for Visit * Reason Onset Date Comments sooner appt 08/20/2023 Encounter Details Date Type Department Care Team (Late st Contact Info) Description 08/20/2023 Telephone [facility] Ophthalmology [address] [place] [address] Higinio Connolly MD [address] [facility] [address] [place] [address] sooner appt Social History Tobacco Use Types Packs/Day Years [...] on file 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 * Telephone Encounter - Sara Mayorga CNA - 08/20/2023 3:21 PM CDT Pt lvm stating that he has Black floater outside of eye and aching within his OS since sx. Pt is scheduled for 10/06 but would like to be seen earlier for new symptoms please advise. documented in this encounter Plan of Treatment [...] Ilene Yadav, RN Note: Problem: Knowledge deficit - Complications [...] to monitor diabetes and kidney status, etc. [facility] Chronic Pain Care Plan Chronic Care Management No change(03/23 1:47 PM GAS PROVER) No Ingrid Oden, SHEA Note: Problem: Chronic Pain Goals: 1. Minimize further functional decline 2. Maximize quality of life 3. Control pain Strategies: - Activity/exercise program recommendation - Conservative stepwise pain medicine strategy with multi-disciplinary approach - Recommend healthy lifestyle strategies and compensatory methods as needed documented as of this encounter Visit Diagnoses Not on filedocumented in this encounter Care Teams Corporate Physical Security Supervisor Relationship Specialty Start Date End Date Kraig Ching MD [address] [facility] [address] [place] [address] PCP - General 07/10/16 Gautam Cope MD [address] [facility] [address] [place] [address] Medical Oncologist/Rn Case Manager Medical Oncology 08/18/18 Tramaine Roe MD [address] [facility] [address] [place] [address] Referring Physician Urology 08/18/18 Sukhwinder Uribe MD [address] [facility] [address] [place] [address] Consulting Physician Urology 08/18/18 Shay Guillermo MD [address] [facility] [address] [place] [address] Referring Physician Urology 08/18/18 Marsha Landis, RN Registered Nurse 11/17/18 documented as of this encounter
--- OUTSIDE RECORDS SUMMARY | 2024-03-31 04:52 | XMS_ITS | Encounter Summary ---
Author Organization [facility] Healthcare Address [address] [place] [address] Care Team Providers Care Medical Insurance Verifier Name Role Phone Kraig Ching MD Primary Care Provider [phone] Gautam Cope MD Unavailable Tramaine Roe MD Unavailable [phone] Sukhwinder Uribe MD Unavailable [phone] Shay Guillermo MD Unavailable [phone] Marsha Landis RN Unavailable Unavailab le Encounter Details Date Type Department Care Team (Late st Contact Info) Description 08/04/2023 Orders Only [facility] Information Management [address] [place] [address] Kraig Ching MD [address] [facility] [address] [place], [place] [address] Social History Tobacco Use Types Packs/Day Years [...] on file 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 [facility] Chronic Pain Care Plan Chronic Care Management No change(03/23 1:47 PM JAVA ARCHITECT) No Ingrid Oden, RN Note: Problem: Chronic Pain Goals: 1. Minimize further functional decline 2. Maximize quality of life 3. Control pain Strategies: - Activity/exercise program recommendation - Conservative stepwise pain medicine strategy with multi-disciplinary approach - Recommend healthy lifestyle strategies and compensatory methods as needed documented as of this encounter Procedures Procedure Name Priority Date/Time Associated Diagnosis Comments CARDIOLOGY DOCUMENT SCAN 08/04/2023 documented in this encounter Results * Cardiology Document Scan (08/04/2023) Anatomical Region Laterality Modality Other us Kraig Ching MD CV CARDIAC SERVICES PROCEDURE S Final Result documented in this encounter Visit Diagnoses Not on filedocumented in this encounter Care Teams Medical Insurance Verifier Relationship Specialty Start Date End Date Kraig Ching MD [address] [place] [address] PCP - General 07/10/16 Gautam Cope MD [address] [place] [address] Medical Oncologist/Fixture Relamper Medical Oncology 08/18/18 Tramaine Roe MD [address] [place] [address] Referring Physician Urology 08/18/18 Sukhwinder Uribe MD [address] [place] [address] Consulting Physician Urology 08/18/18 Shay Guillermo MD [address] [facility] [address] [place] [address] Referring Physician Urology 08/18/18 Marsha Landis, RN Registered Nurse 11/17/18 documented as of this encounter
--- OUTSIDE RECORDS SUMMARY | 2024-03-31 04:52 | XMS_ITS | Encounter Summary ---
Author Organization [facility] Address [address] [place] [address] Phone Care Team Providers Care Senior Product Integrity Engineer Name Role Phone Kraig Ching MD Primary Care Provider [phone] Gautam Cope MD Unavailable Tramaine Roe MD Unavailable [phone] Sukhwinder Uribe MD Unavailable [phone] Shay Guillermo MD Unavailable [phone] Marsha Landis RN Unavailable Unavailab le Reason for Referral * Diagnostic Imaging (Routine) - Authorized Specialty Diagnoses / Procedures Referred By Saleem narvaez Referred To Contact Diagnoses Prostate cancer (HCC) Procedures NM bone scan whole body Gautam Cope MD [address] [facility] [address] [place] [address] Phone: tel: fax: [address] [address] Referral ID Status Reason Start Date Expiration Date V isits Requested Visits Authorized [id number] Authorized 12/31/2023 01/29/2025 2 2 * MRI/CAT/PET Scan (Routine) - Authorized Specialty Diagnoses / Procedures Referred By Saleem t Referred To Contact Radiology Diagnoses Prostate cancer (HCC) Procedures CT chest abdomen pelvis without contrast Gautam Cope MD [address] [facility] [address] [place] [address] Phone: tel: fax: [facility] [address] [facility] [place] [address] Referral ID Status Reason Start Date Expiration Date V isits Requested Visits Authorized [id number] Authorized 12/31/2023 01/29/2025 1 1 Reason for Visit * Consultation (Routine) - Authorized Specialty Diagnoses / Procedures Referred By Contac t Referred To Contact Oncology Diagnoses Prostate cancer (HCC) Tramaine Roe MD [address] [employer] [facility] [address] [place] [address] Phone: tel: fax: Gautam Cope MD [address] [facility], [address] [place] [address] Phone: tel: fax: Referral ID Status Reason Start Date Expiration Date Visits Requested Visits Authorized [id number] Authorized Specialty Services Required 08/15/2018 04/11/2024 99 99 Encounter Details Date Type Department Care Team (Late st Contact Info) Description 01/11/2024 11:45 AM CDT Office Visit [facility] Oncology [address] [facility] [address] [place] [address] Gautam Cope MD [address] [facility] [address] [place] [address] Prostate cancer (HCC) (Primary Dx) Social History Tobacco Use Types Packs/Day Years [...] on file 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 Drew is a 83 y.o. with metastatic prostate cancer. He was diagnosed in 1999 when he presented the PSA of 5.5, ultimately undergoing a radical prostatectomy performed by Dr. Guillermo. He was found to have Vantage 4 + 3 disease with extracapsular extension and a positive margin. He received adjuvant radiation therapy in November 1999. Thirteen years later, in June 2012, he was noted to havea rising PSA and by 2018 it had reached double digits. In August 2018 he was found to have a local recurrence along with metastatic foci at L2. We then met the patient and started him on leuprolide, abiraterone, and prednisone in October 2018. He has had an excellent serological and radiographic responseto treatment. Additional medical issues include hypertension, diabetes, hyperlipidemia, chronic kidney disease and chronic back pain. INTERVAL HiSTORY: David Drew returns for further follow up of metastatic prostate cancer. He is doing well with leuprolide, abiraterone and prednisone. He is taking abiraterone and prednisone properly. His vasomotor symptoms are a little more noticeable. He admits to urinary frequency and minor urinary incontinence, both unchanged. He has chronic lower back pain, receiving steroid injections with Pain Management. This limits his ability to walk and he utilizes a walker, both unchanged. He continues to report, my belly just isn't right some times, which he has discussed with his PCP who feels its related to his various medications. He will take oxycodone a few times/week (prescribed by PCP) for the abdominal pain and this also helps with the vasomotor symptoms overnight. All other systems negative. PHYSICAL EXAMINATION: BP 125/68 (BP Location: Left arm) Pulse 69 Temp 36.3 ??C (97.4 ??F) (Oral) Resp 18 Wt 94.4 kg (208 lb 3.2 oz) SpO2 97% BMI 29.87 kg/m?? KPS: 60%, more limited by his low back pain and arthritis. He has no palpable adenopathy. Lungs: Clear to auscultation and percussion. Cardiac: Occasional irregular rate with an S1 and S2 and an early systolic murmur. Abdomen: No hepatosplenomegaly or palpable masses. Bowel sounds are present. He has no abdominal tenderness. Extremities: Trace bilateral edema, R>L. He moves fairly slowly and it is difficult for him to stand up straight without back pain. Skin: Multiple areas of ecchymosis on bilateral forearms. LABORATORY DATA: CBC: Lab Results Component Value Date WBC 14.0 (H) 01/11/2024 HGB 12.9 (L) 01/11/2024 HCT 40.7 01/11/2024 LABPLAT 381 01/11/2024 NEUTROABS 11.8 (H) 01/11/2024 CMP: Lab Results Component Value Date SODIUM 140 10/19/2023 POTASSIUM 4.4 10/19/2023 BUNSER 35 (H) 10/19/2023 CREATININE 2.14 (H) 10/19/2023 GLUCOSE 110 10/19/2023 CALCIUM 9.2 10/19/2023 BILITOT 0.6 10/19/2023 ALKPHOS 123 10/19/2023 AST 12 10/19/2023 ALT 9 10/19/2023 25HYDROVITD 23 (L) 10/15/2020 TUMOR MARKERS: Lab Results Component Value Date PSA <0.02 10/19/2023 TESTOSTERONE 10 (L) 10/18/2018 LDH 161 10/19/2023 ASSESSMENT AND PLAN: Metastatic prostate cancer, remaining on Lupron, abiraterone, and prednisone, with outstanding control of his disease. He was diagnosed with prostate cancer in 1999 and treated with a radical prostatectomy for Viviana 7 disease. He received adjuvant radiation therapy for adverse pathological features. Hormonal therapy was started in 2018 when he developed metastatic disease at L2 along with localrecurrence. He is doing well with leuprolide, abiraterone and prednisone. Diabetes, on insulin. Chronic kidney disease, followed by Nephrology. Chronic low back pain, secondary to degenerative joint disease, followed by Pain Management. Ground-glass opacity in lung, stable in June 2023. Cardiac arrhythmias his atrial stenosis followed by Cardiology. The patient is doing well with respect to his prostate cancer. We will see him again in 12 weeks for further f/u and another LHRH injection. We are planning for another set of scans prior to that office visit. His next bone density is due in June 2024. The patient is comfortable with this plan andwill call the office with any issues in between office visits. Beatris Herrmann ANP-BC Adult Nurse Practitioner Division of Medical Oncology [facility] documented in this encounter Plan of Treatment Scheduled Orders Name Type Priority Associated Diagnoses Order Schedule CT chest abdomen pelvis without contrast Imaging Schedule Routine, Read Routine (OP Routine) Prostate cancer (HCC) Expected: 04/03/2024, Expires: 12/30/2024 NM bone scan whole body Imaging Schedule Routine, Read Routine (OP Routine) Prostate cancer (HCC) Expected: 04/03/2024, Expires: 12/30/2024 Lactate dehydrogenase (LD) Lab Routine Prostate cancer (HCC) Expected: 04/11/2024, Expires: 04/11/2025 CBC with auto differential Lab Routine Prostate cancer (HCC) Expected: 04/11/2024, Expires: 04/11/2025 Comprehensive metabolic panel Lab STAT Prostate cancer (HCC) Expected: 04/11/2024, Expires: 04/11/2025 PSA diagnostic Lab Routine Prostate cancer (HCC) Expected: 04/11/2024, Expires: 04/11/2025 Hemoglobin A1c Lab Routine Prostate cancer (HCC) Expected: 01/11/2024, Expires: 01/06/2025 documented as of this encounter Goals Goal [...] to monitor diabetes and kidney status, etc. [facility] Chronic Pain Care Plan Chronic Care Management No change(03/23 1:47 PM MANAGER COSMETIC) No Ingrid Oden, RN Note: Problem: Chronic Pain Goals: 1. Minimize further functional decline 2. Maximize quality of life 3. Control pain Strategies: - Activity/exercise program recommendation - Conservative stepwise pain medicine strategy with multi-disciplinary approach - Recommend healthy lifestyle strategies and compensatory methods as needed documented as of this encounter Visit Diagnoses Diagnosis Prostate cancer (HCC)- Primary Malignant neoplasm of prostate documented in this encounter Orders Appointment Requests Count Last Ordered Date Fi rst Ordered Date ONCBCN CLINIC APPOINTMENT REQUEST 2 024 12/31/2023 ONCBCN INJECTION APPOINTMENT REQUEST 1 12/12 ONCBCN LAB APPOINTMENT 1 12/31/2023 documented in this encounter Care Teams Senior Product Integrity Engineer Relationship Specialty Start Date End Date Kraig Ching MD [address] [facility] [address] [place] [address] PCP - General 07/10/16 Gautam Coep MD [address] [facility] [address] [place] [address] Medical Oncologist/Event Marketing Representative Medical Oncology 08/18/18 Tramaine Roe MD [address] [facility] [address] [place] [address] Referring Physician Urology 08/18/18 Sukhwinder Uribe MD [address] [facility] [address] [place] [address] Consulting Physician Urology 08/18/18 Shay Guillermo MD [address] [facility] [address] [place] [address] Referring Physician Urology 08/18/18 Marsha Landis, RN Registered Nurse 11/17/18 documented as of this encounter
--- OUTSIDE RECORDS SUMMARY | 2024-03-31 04:52 | XMS_ITS | Encounter Summary ---
Author Organization [facility] Address [address] [place] [address] Phone Care Team Providers Care Claims Director Name Role Phone Kraig Ching MD Primary Care Provider [phone] Gautam Cope MD Unavailable Tramaine Roe MD Unavailable [phone] Sukhwinder Uribe MD Unavailable [phone] Shay Guillermo MD Unavailable [phone] Marsha Landis RN Unavailable Unavailab le Reason for Visit * Reason Onset Date Comments Appointments>01/11/24>ACB 01/07/2024 Encounter Details Date Type Department Care Team (Late st Contact Info) Description 01/07/2024 Telephone [facility] Oncology 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 Wei today, 01/07/24, about his upcoming appointments on 01/11/24, in the new [facility], 5th floor, with labs at 11:00, ROV with Dr. Cope at 11:45, and his injection to follow. We also talked about the parking garage location and to take the patient elevators tothe 5th floor from any level. Mr. Wei thanked me for the call. documented in this encounter Plan of Treatment [...] to monitor diabetes and kidney status, etc. [facility] Chronic Pain Care Plan Chronic Care Management No change(03/23 1:47 PM MARINE REPORTER) No Ingrid Oden RN Note: Problem: Chronic Pain Goals: 1. Minimize further functional decline 2. Maximize quality of life 3. Control pain Strategies: - Activity/exercise program recommendation - Conservative stepwise pain medicine strategy with multi-disciplinary approach - Recommend healthy lifestyle strategies and compensatory methods as needed documented as of this encounter Visit Diagnoses Not on filedocumented in this encounter Care Teams Claims Director Relationship Specialty Start Date End Date Kraig Ching MD [address] [facility] [address] [place] [address] PCP - General 07/10/16 Gautam Cope MD [address] [facility] [address] [place] [address] Medical Oncologist/Rebeamer Medical Oncology 08/18/18 Tramaine Roe MD [id number] [place] [address] Referring Physician Urology 08/18/18 Sukhwinder Uribe MD [id number] [place] [address] Consulting Physician Urology 08/18/18 Shay Guillermo MD [id number] [place] [address] Referring Physician Urology 08/18/18 Marsha Landis, RN Registered Nurse 11/17/18 documented as of this encounter
--- OUTSIDE RECORDS SUMMARY | 2024-03-31 04:52 | XMS_ITS | Encounter Summary ---
Author Organization [facility] Address [address] [place] [address] Care Team Providers Care Desk Operator Name Role Phone Kraig Ching MD Primary Care Provider [phone] Gautam Cope MD Unavailable Tramaine Roe MD Unavailable [phone] Sukhwinder Uribe MD Unavailable [phone] Shay Guillermo MD Unavailable Marsha Landis RN Unavailable Unavailab le Reason for Visit * Reason Onset Date Comments ZAK Questions 08/10/2023 Encounter Details Date Type Department Care Team (Late st Contact Info) Description 08/10/2023 Telephone [facility] [address] [facility] [address] [place] [address] Kraig Ching MD [address] [facility] [address] [place] [address] ZAK Questions Social History Tobacco Use Types Packs/Day Years [...] on file 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 Yes Date Admitted: 08.03.23 Date Discharged: 08.08.23 Facility Admitted To: [facility] Reason for Stay? Sepsis If prescribed new medications, do you have any questions or concerns? No Do you have enough medication to get you to your follow-up appointment? Yes Since being released do you feel better, the same, or worse? Better Date of ZAK Appointment: 08.19.23 at 10 am Do you have transportation to the appointment? Yes Additional Comments: Patient stated he has a couple more days of antibiotic to complete. Does message need to be routed? No documented in this encounter Plan of Treatment [...] to monitor diabetes and kidney status, etc. 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 Minimize further functional decline 2. Maximize quality of life 3. Control pain Strategies: - Activity/exercise program recommendation - Conservative stepwise pain medicine strategy with multi-disciplinary approach - Recommend healthy lifestyle strategies and compensatory methods as needed documented as of this encounter Visit Diagnoses Not on filedocumented in this encounter Care Teams Desk Operator Relationship Specialty Start Date End Date Kraig Ching MD [address] [facility] [address] [place] [address] PCP - General 07/10/16 Gautam Cope MD [address] [facility] [address] [place] [address] Medical Oncologist/Hemmer Chainstitch Medical Oncology 08/18/18 Tramaine Roe MD [address] [facility] [address] [place] [address] Referring Physician Urology 08/18/18 Sukhwinder Uribe MD [address] [facility] [address] [place] [address] Consulting Physician Urology 08/18/18 Shay Guillermo MD [address] [facility] [address] [place] [address] Referring Physician Urology 08/18/18 Marsha Landis, RN Registered Nurse 11/17/18 documented as of this encounter
--- OUTSIDE RECORDS SUMMARY | 2024-03-31 04:52 | XMS_ITS | Referral Summary ---
Author Organization [facility] Address [address] [place] [address] Care Team Providers Care Auditing Manager Name Role Phone Kraig Ching MD Primary Care Provider [phone] Gautam Cope MD Unavailable Tramaine Roe MD Unavailable [phone] Sukhwinder Uribe MD Unavailable [phone] Shay Guillermo MD Unavailable Marsha Landis RN Unavailable Unavailab le Encounters Date Type Department Care Team Description 03/13/2024 Orders Only [facility] Oncology [facility] Floor 5 [place] [address] Gautam Cope MD 01/27/2024 11:00 AM CDT Office Visit [facility] Ophthalmology [address] [facility] 2nd Floor [address] [place] [address] Higinio Connolly MD Primary open angle glaucoma (POAG) of left eye, moderate stage (Primary Dx); Ocular hypertension of right eye 01/11/2024 12:45 PM CDT Infusion [facility] Cancer [place] - Infusion [address] [facility] Floor [address] [place] [address] Prostate cancer (HCC) (Primary Dx) 01/11/2024 11:45 AM CDT Office Visit [facility] Oncology [address] [facility] Floor 5 [place] [address] Gautam Cope MD Prostate cancer (HCC) (Primary Dx) 01/11/2024 11:00 AM CDT Lab [facility] - Lab Collection [address] [facility] Floor [address] [place] [address] Prostate cancer (HCC) 01/10/2024 12:00 PM CDT Office Visit [facility] [address] [facility] [address] [place] [address] Kraig Ching MD Primary hypertension (Primary Dx); Type 2 diabetes mellitus with stage 3a chronic kidney disease, with long-term current use of insulin (HCC); Prostate cancer (HCC); Fatigue, unspecified type 01/07/2024 Telephone [facility] Oncology [address] [facility] 7th [place] [address] [place] [address] Ladi Bunch RN Appointments>01/11/24 >ACB from Last 3 Months Allergies Active Allergy Reactions Criticality Noted Date [...] EVERY DAY DIRECTED 400 each 11 12/25/19 Active PreviDent 5000 Plus 1.1 % creamIndicatio [...] mg. Assessment & Plan (03/08/2023 7:11 AM DREDGE PIPE INSTALLER): Hypertension is controlled. Continue current regimen. 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 Avoid NSAIDS. Assessment & Plan (10/05/2023 5:50 AM CDT): Continue current regimen.Limit nephrotoxins.Reviewed creatinine. Avoid NSAIDS. Assessment & Plan (03/08/2023 7:12 AM DREDGE PIPE INSTALLER): Continue current regimen.Limit nephrotoxins.Reviewed creatinine. Avoid NSAIDS. CKD (chronic kidney disease) 03/08/2022 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 chronic kidney disease 2021 Gastroesophageal reflux disease 04/08/2021 Assessment & Plan (03/08/2023 11:17 AM DREDGE PIPE INSTALLER): Reviewed dietary modifications. Continue PPI. Assessment & Plan (08/18/2022 6:36 AM CDT): Reviewed dietary modifications. Continue PPI. Assessment & Plan (02/12/2022 6:03 AM CDT): Reviewed dietary modifications. Continue PPI. Assessment & Plan (04/08/2021 5:55 AM DREDGE PIPE INSTALLER): Reviewed dietary modifications. Continue PPI. 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 Continue home PT exercises. Advised using a walker. Assessment & Plan (08/18/2022 11:47 AM CDT): Continue oxycodone. Continue home PT exercises. Advised using a walker. Assessment & Plan (02/12/2022 11:41 AM CDT): Continue oxycodone. Continue home PT exercises. A prescription for a walker. Assessment & Plan (04/08/2021 5:55 AM DREDGE PIPE INSTALLER): Continue oxycodone. Continue home PT exercises. Continue [...] 01/25/2018 Assessment & Plan (03/07/2018 6:54 AM DREDGE PIPE INSTALLER): Hypertension is controlled. Continue current regimen. CHF [...] creatinine. Assessment & Plan (04/08/2021 5:54 AM DREDGE PIPE INSTALLER): Hypertension is controlled. Continue current regimen.Limit nephrotoxins. [...] NSAIDS. Assessment & Plan (03/07/2018 6:55 AM DREDGE PIPE INSTALLER): Hypertension is controlled. Continue current regimen. Limit nephrotoxins. Monitor creatinine. Avoid NSAIDS. Assessment & Plan (11/25/2017 7:09 AM CDT): Limit nephrotoxins. Monitor creatinine. Avoid NSAIDS. Duodenal ulcer 11/25/2017 Assessment & Plan (11/25/2017 10:16 AM CDT): Reviewed GI note . Continue pantoprazole. Avoid NSAIDS. Refer for EGD. PAF (paroxysmal atrial fibrillation) ([facility]/HCC) 0 10/22/2017 Assessment & Plan (03/07/2018 6:54 AM DREDGE PIPE INSTALLER): Continue rate control. Continue anticoagualtion. Anticipate starting Eliquis after cleared by GZbigniew. Assessment & Plan (11/25/2017 10:16 AM CDT): [...] NSAIDS. Assessment & Plan (03/07/2018 6:55 AM DREDGE PIPE INSTALLER): Limit nephrotoxins. Monitor creatinine. Avoid NSAIDS. Assessment [...] diet. Assessment & Plan (04/08/2021 10:17 AM DREDGE PIPE INSTALLER): Reviewed HgBA1C elevated at 10.6 on 04/01/21. [...] therapy. Assessment & Plan (03/07/2018 6:57 AM DREDGE PIPE INSTALLER): Continue pravastatin. He had myalgias on other [...] diet. Assessment & Plan (03/02/2017 6:53 AM DREDGE PIPE INSTALLER): Hypertension is controlled. Continue current regimen. Reviewed [...] 05/28/2023 Assessment & Plan (03/08/2023 11:40 AM DREDGE PIPE INSTALLER): Agree with cataract surgery. He has 1st [...] 08/30/2017 Assessment & Plan (03/02/2017 10:48 AM DREDGE PIPE INSTALLER): Mood is improved. Monitor off medication. 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 Assessment & Plan (03/07/2018 6:56 AM DREDGE PIPE INSTALLER): Continue current regimen. Advised annual eye exam.Limit nephrotoxins. Monitor creatinine. Avoid NSAIDS. Assessment & Plan (11/25/2017 10:16 AM CDT): Continue current regimen and add Januvia.Advised annual eye exam. Limit nephrotoxins. Monitor creatinine. Avoid NSAIDS. Assessment & Plan (01/15/2017 6:44 AM CDT): Continue current regimen. Advised annual eye exam. Reviewed proper diet. Continue statin therapy. Immunizations Name Administration Dates Next Due Influenza, Quad, Adjuvantate d, Intramuscular 02/22/2021 Influenza, Quadrivalent, Amelia l Culture-based MDCK, Preservative Free, Antibiotic Free, Intramuscular 02/06/2020 Influenza, Quadrivalent, Hig h Dose, Preservative Free, Intrr 12/21/2022,02/12/2022 Influenza, Quadrivalent, Spl it, Preservative Free, Intramuscular 01/14/2015 Influenza, Trivalent, High D ose, Split, Preservative Free, Intramuscular 01/17/2019 Influenza, Unspecified 01/17/2019(Deferred: Daisy ent Refused) [employer] (J[employer]J) SARS-CoV-2 Vaccination 06/14/2020, 06/14/2020 Pfizer SARS-CoV-2 Monovalent Vaccination (12+ Yrs) PURPLE 03/05/2021,02/22/2021 Pneumococcal Conjugate PCV 13 11/17/2018 Pneumococcal Polysaccharide PPV23 08/08/2021 Social History Tobacco Use Types Packs/Day Years [...] on file 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 DREDGE PIPE INSTALLER Gender Identity Not on file Sexual Orientation Not on file Last Filed Vital Signs Vital Sign Reading [...] 01/10/2024 11:21 AM CDT Plan of Treatment Not on file Goals Goal Patient Goal Type Associated Problems [...] to monitor diabetes and kidney status, etc. [facility] Chronic Pain Care Plan Chronic Care Management No change(03/23 1:47 PM DREDGE PIPE INSTALLER) No Ingrid Oden, SHEA Note: Problem: Chronic Pain Goals: 1. Minimize further functional decline 2. Maximize quality of life 3. Control pain Strategies: - Activity/exercise program recommendation - Conservative stepwise pain medicine strategy with multi-disciplinary approach - Recommend healthy lifestyle strategies and compensatory methods as needed Medical Devices Implanted Type Area Groundskeeper Supervisor Device Identifier Shelf Expiration Date Model / Serial / Lot [employer] Lens Iol Cna0t0.195 [facility] Autonom Cna0t0.195 - [id number] - [id number] Implanted:Qty: 1 on 06/09/2023 by Higinio Connolly MD at [facility] Lens Right: Eye [employer] [id number] 10/27/2025 CNA0T0.19 5 / [id number] / [employer] Lens Iol Cna0t0.200 [facility] Autonom Cna0t0.200 - [id number] - [id number] Implanted:Qty: 1 on 05/19/2023 by Higinio Connolly MD at [facility] Left: Eye [employer] [id number] 10/06/2025 CNA0T0.20 0 / [id number] / Procedures Procedure Name Priority Date/Time [...] (HCC) LIPID PANEL Routine 03/08/2023 11:55 AM DREDGE PIPE INSTALLER Hyperlipidemia, unspecified hyperlipidemia type ALBUMIN CREATININE RATIO, URINE Routine 01/01/2023 10:40 AM CDT Type 2 diabetes mellitus with stage 3a chronic kidney disease, with long-term current use of insulin (HCC) DIABETES EYE EXAM Routine 06/29/2018 from Last [...] Deviation was 15.38. us Higinio Connolly MD OPHTH VISUAL FIELD Final Re sult * (ABNORMAL) [...] MD LAB BLOOD ORDERABLES [facility] One [facility] [place] [address] * (ABNORMAL) Differential, auto (01/11/2024 11:10 AM CDT) Neutrophil abs 11.8(H) 1.5 - 6.5 K/cumm Comment:Testing performed by : [facility], [address] [place], [place] [phone] Lymphocyte abs 1.1 0.8 - 3.3 K/cumm [facility] Comment:Testing performed by : [facility], [address] [place] [address] Monocyte abs 0.8 0.2 - 0.8 K/cumm [facility] Comment:Testing performed by : [facility], [address] [place] [address] Eosinophil abs 0.1 0.0 - 0.5 K/cumm [facility] Comment:Testing performed by : [facility], [address] [place], [place] [id number] Basophil abs 0.1 0.0 - 0.1 K/cumm [facility] Comment:Testing performed by : [facility], [address] [place] [phone] Neutrophil pct 84.3 % [facility] Comment: Interpretive Data Percent cell count reference ranges are not reported, since discordance with absolute values may lead to misinterpretation of CBC data. Current Interpretive Data was last revised on 2017. Testing performed by: [facility], [address] [place] [phone] Lymphocyte pct 8.2 % [facility] Comment: Interpretive Data Percent cell count reference ranges are not reported, since discordance with absolute values may lead to misinterpretation of CBC data. Current Interpretive Data was last revised on 2017. Testing performed by: [facility], [address] [place] [phone] Monocyte pct 6.1 % [facility] Comment: Interpretive Data Percent cell count reference ranges are not reported, since discordance with absolute values may lead to misinterpretation of CBC data. Current Interpretive Data was last revised on 2017. Testing performed by: [facility], [address] [place] [phone] Eosinophil pct 0.6 % [facility] Comment: Interpretive Data Percent cell count reference ranges are not reported, since discordance with absolute values may lead to misinterpretation of CBC data. Current Interpretive Data was last revised on 2017. Testing performed by: [facility], [address] [place] [phone] Basophil pct 0.8 % [facility] Comment: Interpretive Data Percent cell count reference ranges are not reported, since discordance with absolute values may lead to misinterpretation of CBC data. Current Interpretive Data was last revised on 2017. Testing performed by: [facility], [address] [place] [phone] Blood 01/11/2024 11:1 0 AM CDT 01/11/2024 11:13 AM CDT us Gautam Cope MD LAB BLOOD ORDERABLES Final Resul t [facility] One [facility] [place] [address] * (ABNORMAL) CBC with auto differential (01/11/2024 11:10 AM CDT) WBC 14.0(H) 3.8 - 9.9 K/cumm Comment:Testing performed by : [facility], [address] [place] [phone] Hgb 12.9(L) 13.0 - 17.5 g/dL [facility] Comment:Testing performed by : [facility], [address] [place] [address] Hct 40.7 38.9 - 50.3 % [facility] Comment:Testing performed by : [facility], [address] [place] [address] Plt 381 150 - 400 K/cumm [facility] Comment:Testing performed by : [facility], [address] [place] [address] MPV 7.6 6.8 - 10.4 fL [facility] Comment:Testing performed by : [facility], [address] [place] [address] RBC 4.67 4.30 - 5.80 M/cumm [facility] Comment:Testing performed by : [facility], [address] [place] [address] MCV 87.2 81.3 - 96.4 fL [facility] Comment:Testing performed by : [facility], [address] [place] [address] MCH 27.7 27.1 - 33.3 pg [facility] Comment:Testing performed by : [facility], [address] [place] [address] MCHC 31.8(L) 32.3 - 35.7 g/dL [facility] Comment:Testing performed by : [facility], [address] [place] [address] RDW CV 15.0(H) 11.1 - 14.9 % [facility] Comment:Testing performed by : [facility], [address] [place] [address] NRBC abs 0.00 0.00 - 0.01 K/cumm [facility] Comment:Testing performed by : [facility], [address] [place] [address] Blood 01/11/2024 11:1 0 AM CDT 01/11/2024 11:13 AM CDT us Gautam Cope MD LAB BLOOD ORDERABLES Final Resul t [facility] One [facility] [place] [address] * PSA diagnostic (01/11/2024 11:10 AM CDT) PSA-Total <0.02 <=6.20 ng/mL Comment: Interpretive Data ?AGE ? SEX ?REFERENCE INTERVAL 0 minutes-150 years ?Female ?None 0 minutes-49 years ? Male ?None ? 50-59 years ? Male ?0-3.90 ? 60-69 years ? Male ?0-5.40 ? 70-79 years ? Male ?0-6.20 ? 80-150 years ?Male ?0-6.20 The [employer] PSA Total assay procedure was used. Results from different manufacturers or methods may not be comparable. Serial testing should be performed using the same method. Current interpretive data last revised 21. Blood 01/11/2024 11:1 0 AM CDT 01/11/2024 11:21 AM CDT Gautam Cope MD LAB BLOOD ORDERABLES Final Resul t Performing Organization Address [facility] de Phone Number [facility] [place] [address] * Lactate dehydrogenase (LD) (01/11/2024 11:10 AM CDT) Lactate dehydrogenase (LDH) 191 100 - 250 Units/L Blood 01/11/2024 11:1 0 AM CDT 01/11/2024 11:21 AM CDT Gautam Cope MD LAB BLOOD ORDERABLES Final Resul t Performing Organization Address [facility] de Phone Number [facility] [place] [address] * (ABNORMAL) Comprehensive metabolic panel (01/11/2024 11:10 AM CDT) Sodium 141 135 - 145 mmol/L Potassium, pl 4.7 3.3 - 4.9 mmol/L [facility] Chloride 103 97 - 110 mmol/L [facility] CO2 31 22 - 32 mmol/L [facility] Anion gap 7 2 - 15 mmol/L [facility] BUN 39(H) 6 - 25 mg/dL [facility] Creatinine 1.93(H) 0.80 - 1.30 mg/dL [facility] Glucose 152 70 - 199 mg/dL [facility] Comment: Interpretive Data Fasting glucose >/= [...] 2022. Calcium 9.1 8.5 - 10.3 mg/dL [facility] Bilirubin, total 0.5 0.1 - 1.2 mg/dL [facility] Protein, pl 6.7 6.5 - 8.5 g/dL [facility] Albumin 3.6 3.5 - 5.0 g/dL [facility] Alk phos 140(H) 40 - 130 Units/L [facility] ALT 9 7 - 55 Units/L [facility] AST 14 10 - 50 Units/L [facility] Blood 01/11/2024 11:1 0 AM CDT 01/11/2024 11:21 AM CDT us Gautam Cope MD LAB BLOOD ORDERABLES Final Resul t [facility] One [facility] [place] [address] * (ABNORMAL) Hemoglobin A1c (10/19/2023 11:05 AM CDT) Pathologist [facility] Hgb A1C 8.0(H) 4.0 - 5.6 % Estimated Average Glucose 183 mg/dL [facility] Comment: The ADA recommends reporting an estimated Average Glucose (eAG) with all Hemoglobin A1c results using the equation derived from a study of 507 normal and diabetic adults. ??Minority populations were underrepresented and children were not included. ?? (Diabetes Care 2020; 43(S1): S66-S76). ??The eAG is not equivalent to a fasting glucose. Blood 10/19/2023 11:0 5 AM CDT 10/19/2023 11:23 AM CDT us Gautam Cope MD LAB BLOOD ORDERABLES Final Resul t [facility] One [facility] [place] [address] * (ABNORMAL) Lipid panel (03/08/2023 11:55 AM DREDGE PIPE INSTALLER) [facility] Cholesterol 193 30 - 199 mg/dL [facility] Comment: Interpretive Data Ages < or = [...] on 2017. Triglycerides 250(H) <=149 mg/dL [facility] Comment: Interpretive Data Ages < or = [...] revised on 2017. HDL 36(L) >=40 mg/dL [facility] Comment: Interpretive Data Ages < or [...] on 2017. LDL, calculated 107 <=129 mg/dL [facility] Comment: Interpretive Data Ages < or = [...] revised on 2017. Non-HDL Cholesterol 157 mg/dL [facility] Comment: Interpretive Data Ages < or [...] last revised on 2017. Chol/HDL ratio 5 [facility] Blood 03/08/2023 11:5 5 AM DREDGE PIPE INSTALLER 03/08/2023 3:48 PM DREDGE PIPE INSTALLER us Kraig Ching MD LAB BLOOD ORDERABLES Final Re sult [facility] One [facility] [place] [address] * (ABNORMAL) Albumin Creatinine Ratio, Urine (01/01/2023 10:40 AM CDT) Albumin Ur 227.3 mg/L [facility] Comment: Interpretive Data No reference range established. Current interpretive data was last revised 2018. Creatinine Ur 66.5 mg/dL [facility] Comment: Interpretive Data No reference range established. Current interpretive data was last revised 2018. Albumin Creatinine Ratio, Ur 342(H) 1 - 29 mg/g [facility] Urine 01/01/2023 10:4 0 AM CDT 01/01/2023 10:45 AM CDT Kraig Ching MD LAB URINE ORDERABLES Final Re sult [facility] [place] [address] * DIABETES EYE EXAM (06/29/2018) Diabetic Eye Exam Normal Historical Provider HEALTH MAINTENANCE Final Result from Last 3 Months or Most Recently Relevant to Health Maintenance Insurance [employer] MEDICARE [employer] MEDICARE T MEDICARE T MEDICARE Advance Directives For more information, please contact: [phone] * Full Code (Latest Code Status on File) Date Activated Date Inactivated Comments 12/16/2017 2:44 PM 12/16/2017 7:18 PM Care Teams Auditing Manager Relationship Specialty Start Date End Date Kraig Ching MD [address] [address] PCP - General 07/10/16 Gautam Cope MD [address] [facility] [address] [place] [address] Medical Oncologist/Aviation Survival Technician Medical Oncology 08/18/18 Tramaine Roe MD [address] [facility] [address] [place] [address] Referring Physician Urology 08/18/18 Sukhwinder Uribe MD [address] [facility] [address] [place] [address] Consulting Physician Urology 08/18/18 Shay Guillermo MD [address] [facility] [address] [place] [address] Referring Physician Urology 08/18/18 Marsha Landis, RN Registered Nurse 11/17/18
--- OUTSIDE RECORDS SUMMARY | 2024-03-31 04:52 | XMS_ITS | Encounter Summary ---
Author Organization [facility] Healthcare Address [address] [place] [address] Care Team Providers Care Commercial Account Manager Name Role Phone Kraig Ching MD Primary Care Provider [phone] Gautam Cope MD Unavailable Tramaine Roe MD Unavailable [phone] Sukhwinder Uribe MD Unavailable [phone] Shay Guillermo MD Unavailable [phone] Marsha Landis RN Unavailable Unavailab le Encounter Details Date Type Department Care Team (Late st Contact Info) Description 08/09/2023 Orders Only [facility] Cardiology [address] [place] [address] Ani Amaro, LILIA [address] [place] [address] Social History Tobacco Use Types Packs/Day Years [...] on file 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 [facility] Chronic Pain Care Plan Chronic Care Management No change(03/23 1:47 PM SALES REPRESENTATIVE JEWELRY) No Ingrid Oden, SHEA Note: Problem: Chronic Pain Goals: 1. Minimize further functional decline 2. Maximize quality of life 3. Control pain Strategies: - Activity/exercise program recommendation - Conservative stepwise pain medicine strategy with multi-disciplinary approach - Recommend healthy lifestyle strategies and compensatory methods as needed documented as of this encounter Procedures Procedure Name Priority Date/Time Associated Diagnosis Comments CARDIOLOGY DOCUMENT SCAN Routine 08/06/2023 2:06 PM CDT documented in this encounter Results * Cardiology Document Scan (08/06/2023 2:06 PM CDT) Anatomical Region Laterality Modality Other Ani Amaro NP CV CARDIAC SERVICES PROCEDUR ES Final Result documented in this encounter Visit Diagnoses Not on filedocumented in this encounter Care Teams Commercial Account Manager Relationship Specialty Start Date End Date Kraig Ching MD [address] [facility] [address] [place] [address] PCP - General 07/10/16 Gautam Cope MD [address] [place] [address] Medical Oncologist/Camera Systems Engineer Medical Oncology 08/18/18 Tramaine Roe MD [address] [facility] [address] [place] [address] Referring Physician Urology 08/18/18 Sukhwinder Uribe MD [address] [facility] [address] [place] [address] Consulting Physician Urology 08/18/18 Shay Guillermo MD [address] [facility] [address] [place] [address] Referring Physician Urology 08/18/18 Marsha Landis, RN Registered Nurse 11/17/18 documented as of this encounter
--- OUTSIDE RECORDS SUMMARY | 2024-03-31 04:52 | XMS_ITS | Encounter Summary ---
Author Organization [facility] Address [address] [place] [address] Phone Care Team Providers Care Luster Applicator Name Role Phone Kraig Ching MD Primary Care Provider [phone] Gautam Cope MD Unavailable Tramaine Roe MD Unavailable [phone] Sukhwinder Uribe MD Unavailable [phone] Shay Guillermo MD Unavailable [phone] Marsha Landis RN Unavailable Unavailab le Reason for Visit * Diagnostic Imaging (Routine) - Closed Specialty Diagnoses / Procedures Referred By Saleem t Referred To Contact Diagnoses Glaucoma suspect of both eyes Procedures Kurtz Visual Field - OU - Both Eyes Higinio Connolly MD [address] [facility] [address] [place] [address] Phone: tel: fax: [facility] (All Locations) Referral ID Status Reason Start Date Expiration Date Visits Re quested Visits Authorized [id number] Closed 06/25/2023 07/24/2024 1 1 Encounter Details Date Type Department Care Team (Late st Contact Info) Description 10/07/2023 10:30 AM CDT Imaging Exam [facility] Ophthalmology [address] [facility] 2[address] [place] [address] Glaucoma suspect of both eyes Social History [...] on file 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 [facility] Chronic Pain Care Plan Chronic Care Management No change(03/23 1:47 PM SERVICE CENTER SUPERVISOR) No Ingrid Oden, SHEA Note: Problem: Chronic Pain Goals: 1. Minimize further functional decline 2. Maximize quality of life 3. Control pain Strategies: - Activity/exercise program recommendation - Conservative stepwise pain medicine strategy with multi-disciplinary approach - Recommend healthy lifestyle strategies and compensatory methods as needed documented as of this encounter Procedures Procedure Name Priority Date/Time Associated Diagnosis Comments KURTZ VISUAL FIELD - OU - BOTH EYES Routine 10/07/2023 11:29 AM CDT Glaucoma suspect of both eyes documented in this encounter Results * Kurtz Visual Field - OU - Both Eyes (10/07/2023 11:29 AM CDT) Pattern Deviation OS 16.17 CONTINUUM Pattern Deviation OD 1.99 CONTINUUM Mean Deviation OS -16.13 CONTINUUM Mean Deviation OD 0.52 CONTINUUM Anatomical Region Laterality Modality Head Visual Field Narrative 10/07/2023 11:29 AM CDT Right Eye Fixation was good. Cooperation was good. Reliability was good. Progression has been stable. Foveal threshold was reduced. Findings include normal observations. Mean Deviation was 0.52. Pattern Deviation was 1.99. Left Eye Fixation was good. Cooperation was good. Reliability was good. Progression has worsened. Foveal threshold was reduced. Findings include inferior altitudinal defect. Mean Deviation was -16.13. Pattern Deviation was 16.17. 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, with long-term current use of insulin (HCC) Pseudophakia of both eyes Lens replaced by other means Glaucoma suspect of both eyes Unspecified preglaucoma documented in this encounter Care Teams Luster Applicator Relationship Specialty Start Date End Date Kraig Ching MD [address] [facility] [address] [place] [address] PCP - General 07/10/16 Gautam Cope MD [address] [facility] [address] [place] [address] Medical Oncologist/Gun Tester Medical Oncology 08/18/18 Tramaine Roe MD [address] [facility] [address] [place] [address] Referring Physician Urology 08/18/18 Sukhwinder Uribe MD [address] [facility] [address] [place] [address] Consulting Physician Urology 08/18/18 Shay Guillermo MD [address] [facility] [address] [place] [address] Referring Physician Urology 08/18/18 Marsha Landis, RN Registered Nurse 11/17/18 documented as of this encounter
--- OUTSIDE RECORDS SUMMARY | 2024-03-31 04:52 | XMS_ITS ---
Author Organization [facility] Address [address] [place] [address] Care Team Providers Care Redevelopment Manager Name Role Phone Kraig Ching MD Primary Care Provider [phone] Gautma Cope MD Unavailable Tramaine Roe MD Unavailable [phone] Sukhwinder Uribe MD Unavailable Shay Guillermo MD Unavailable [phone] Marsha Landis RN Unavailable Unavailab le Active Problems Problem Noted Date Diagnosed Date [...] mg. Assessment & Plan (03/08/2023 7:11 AM SUPERVISOR CYTOGENETIC LABORATORY): Hypertension is controlled. Continue current regimen. 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 Avoid NSAIDS. Assessment & Plan (10/05/2023 5:50 AM CDT): Continue current regimen.Limit nephrotoxins.Reviewed creatinine. Avoid NSAIDS. Assessment & Plan (03/08/2023 7:12 AM SUPERVISOR CYTOGENETIC LABORATORY): Continue current regimen.Limit nephrotoxins.Reviewed creatinine. Avoid NSAIDS. CKD (chronic kidney disease) 03/08/2022 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 chronic kidney disease 2021 Gastroesophageal reflux disease 04/08/2021 Assessment & Plan (03/08/2023 11:17 AM SUPERVISOR CYTOGENETIC LABORATORY): Reviewed dietary modifications. Continue PPI. Assessment & Plan (08/18/2022 6:36 AM CDT): Reviewed dietary modifications. Continue PPI. Assessment & Plan (02/12/2022 6:03 AM CDT): Reviewed dietary modifications. Continue PPI. Assessment & Plan (04/08/2021 5:55 AM SUPERVISOR CYTOGENETIC LABORATORY): Reviewed dietary modifications. Continue PPI. 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 Continue home PT exercises. Advised using a walker. Assessment & Plan (08/18/2022 11:47 AM CDT): Continue oxycodone. Continue home PT exercises. Advised using a walker. Assessment & Plan (02/12/2022 11:41 AM CDT): Continue oxycodone. Continue home PT exercises. A prescription for a walker. Assessment & Plan (04/08/2021 5:55 AM SUPERVISOR CYTOGENETIC LABORATORY): Continue oxycodone. Continue home PT exercises. Continue [...] 01/25/2018 Assessment & Plan (03/07/2018 6:54 AM SUPERVISOR CYTOGENETIC LABORATORY): Hypertension is controlled. Continue current regimen. CHF [...] creatinine. Assessment & Plan (04/08/2021 5:54 AM SUPERVISOR CYTOGENETIC LABORATORY): Hypertension is controlled. Continue current regimen.Limit nephrotoxins. [...] NSAIDS. Assessment & Plan (03/07/2018 6:55 AM SUPERVISOR CYTOGENETIC LABORATORY): Hypertension is controlled. Continue current regimen. Limit nephrotoxins. Monitor creatinine. Avoid NSAIDS. Assessment & Plan (11/25/2017 7:09 AM CDT): Limit nephrotoxins. Monitor creatinine. Avoid NSAIDS. Duodenal ulcer 11/25/2017 Assessment & Plan (11/25/2017 10:16 AM CDT): Reviewed GI note . Continue pantoprazole. Avoid NSAIDS. Refer for EGD. PAF (paroxysmal atrial fibrillation) ([facility]/HCC) 0 10/22/2017 Assessment & Plan (03/07/2018 6:54 AM SUPERVISOR CYTOGENETIC LABORATORY): Continue rate control. Continue anticoagualtion. Anticipate starting [...] NSAIDS. Assessment & Plan (03/07/2018 6:55 AM SUPERVISOR CYTOGENETIC LABORATORY): Limit nephrotoxins. Monitor creatinine. Avoid NSAIDS. Assessment [...] diet. Assessment & Plan (04/08/2021 10:17 AM SUPERVISOR CYTOGENETIC LABORATORY): Reviewed HgBA1C elevated at 10.6 on 04/01/21. [...] therapy. Assessment & Plan (03/07/2018 6:57 AM SUPERVISOR CYTOGENETIC LABORATORY): Continue pravastatin. He had myalgias on other [...] diet. Assessment & Plan (03/02/2017 6:53 AM SUPERVISOR CYTOGENETIC LABORATORY): Hypertension is controlled. Continue current regimen. Reviewed [...] AM CDT): Continue pravastatin order lipid panel. Current Oncology Plans Abiraterone / PredniSONE 28 Day Cycles* Plan Start Date:10/28/2018 Plan Provider:Gautam Cope MD Linked Problems Prostate cancer (HCC) Treatment Medications Current Day (Day 1, Cycle 5 - Planned for 03/13/2024) abiraterone (ZYTIGA) abiraterone (ZYTIGA) 250 mg tablet Leuprolide Every 3 Months - Prostate* Plan Start Date:09/13/2018 Plan Provider:Gautam Cope MD Linked Problems Prostate cancer (HCC) Treatment Medications Current Day (Day 1 , Cycle 25 - Planned for 04/11/2024) Next Day (Day 1, Cycle 26 - Planned for 07/04/2024) leuprolide (3 month) (ELIGARD)leuprolide (3 month) (LUPRON)leuprolide (ELIGARD) leuprolide (3 month) (ELIGARD) subcutaneous injection 22.5 mg leuprolide (3 month) (ELIGARD) subcutaneous injection 22.5 mg Past Plans No past plan information found. Radiation Treatments * No radiation treatments are documented for this patient in [facility]. Treatments may have been administered in another system. Lifetime Dose Tracking * Chemical Lifetime Dose Automatic Entry Manual Entr y Fluoro Time 2.6 minutes 2.6 minutes 0 minutes Air kerma at the reference point (Ka,r) 91.11 mGy 9 1.11 mGy 0 mGy DLP 5,808 mGycm 5,808 mGycm 0 mGycm Resolved Problems Problem Noted Date Diagnosed Date Resolved Date Cataract, left 03/08/2023 05/28/2023 Assessment & Plan (03/08/2023 11:40 AM SUPERVISOR CYTOGENETIC LABORATORY): Agree with cataract surgery. He has 1st [...] 08/30/2017 Assessment & Plan (03/02/2017 10:48 AM SUPERVISOR CYTOGENETIC LABORATORY): Mood is improved. Monitor off medication. 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 Assessment & Plan (03/07/2018 6:56 AM SUPERVISOR CYTOGENETIC LABORATORY): Continue current regimen. Advised annual eye exam.Limit nephrotoxins. Monitor creatinine. Avoid NSAIDS. Assessment & Plan (11/25/2017 10:16 AM CDT): Continue current regimen and add Januvia.Advised annual eye exam. Limit nephrotoxins. Monitor creatinine. Avoid NSAIDS. Assessment & Plan (01/15/2017 6:44 AM CDT): Continue current regimen. Advised annual eye exam. Reviewed proper diet. Continue statin therapy.
--- OUTSIDE RECORDS SUMMARY | 2024-03-31 04:52 | XMS_ITS | Encounter Summary ---
Author Organization [facility] Address [address] [place] [address] Phone Care Team Providers Care Petroleum Geology Faculty Member Name Role Phone Kraig Ching MD Primary Care Provider Gautam Cope MD Unavailable Tramaine Roe MD Unavailable [phone] Sukhwinder Uribe MD Unavailable Shay Guillermo MD Unavailable [phone] Marsha Landis RN Unavailable Unavailab le Encounter Details Date Type Department Care Team (Late st Contact Info) Description 03/13/2024 Orders Only [facility] Oncology [address] [facility] [address] [place] [id number] Gautam Cope MD [address] [facility] [address] [place], [place] [id number] Social History Tobacco Use Types Packs/Day Years [...] on file 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 [facility] Chronic Pain Care Plan Chronic Care Management No change(03/23 1:47 PM SENIOR DESIGN ENGINEERING SPECIALIST) No Ingrid Oden RN Note: Problem: Chronic Pain Goals: 1. Minimize further functional decline 2. Maximize quality of life 3. Control pain Strategies: - Activity/exercise program recommendation - Conservative stepwise pain medicine strategy with multi-disciplinary approach - Recommend healthy lifestyle strategies and compensatory methods as needed documented as of this encounter Visit Diagnoses Not on filedocumented in this encounter Care Teams Petroleum Geology Faculty Member Relationship Specialty Start Date End Date Kraig Ching MD [address] [place] [address] PCP - General 07/10/16 Gautam Cope MD [address] [place] [address] Medical Oncologist/Shirt Creaser Medical Oncology 08/18/18 Tramaine Roe MD [address] [place] [address] Referring Physician Urology 08/18/18 Sukhwinder Uribe MD [address] [place] [address] Consulting Physician Urology 08/18/18 Shay Guillermo MD [address] [facility] [address] [place] [address] Referring Physician Urology 08/18/18 Marsha Landis, RN Registered Nurse 11/17/18 documented as of this encounter
--- OUTSIDE RECORDS SUMMARY | 2024-03-31 04:52 | XMS_ITS | Encounter Summary ---
Author Organization [facility] Healthcare Address [address] [place] [address] Care Team Providers Care Powder Operator Name Role Phone Kraig Ching MD Primary Care Provider Gautam Cope MD Unavailable Tramaine Roe MD Unavailable [phone] Sukhwinder Uribe MD Unavailable [phone] Shay Guillermo MD Unavailable [phone] Marsha Landis RN Unavailable Unavailab le Reason for Visit * Reason Comments Injections eligard * Episode Based Medications (Routine) - Authorized Specialty Diagnoses / Procedures Referred By Contac t Referred To Contact Oncology Diagnoses Prostate cancer (HCC) Procedures MI LEUPROLIDE ACETATE SUSPNSION Leuprolide Every 3 Months - Prostate Gautam Cope MD [address] [facility] [address] [place] [address] Phone: tel: fax: [facility] - [facility]fusion [address] [facility] [address] [place] [address] Referral ID Status Reason Start Date Expiration Date V isits Requested Visits Authorized [id number] Authorized 09/06/2018 07/11/2024 1 50 Encounter Details Date Type Department Care Team (Late st Contact Info) Description 01/11/2024 12:45 PM CDT Infusion [facility] - [facility]fusion [address] [facility] [address] [place] [address] Prostate cancer (HCC) (Primary Dx) Social History [...] on file 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 male who presents for the following injection: Eligard. Nursing Assessment Nursing Assessment LOC: Alert, Awake Fatigue: Constant Any falls since your last visit?: No Orientation: Oriented x4 Behavior: Calm Speech: Clear Language: No aphasia Vision: At baseline Peripheral Neuropathy: No Oral Mucosa Grade: Normal (0) Pt states has potential to be ?: N/A Shortness of Breath?: No Lungs auscultated PRN: No Pt is on oxygen?: No Respiratory Effort Characteristics: Dyspnea exertion Cough: Absent Appetite: Good Have You Recently Lost Weight Without Trying?: No Nausea/Vomiting: No Abdomen: Soft Diarrhea: No Constipation: No Last BM Date: 01/11/24 Skin Condition/Temp: Dry, Warm Swelling: No Additional Notes: Encounter Vitals BP: 125/68 (01/11/2024 11:31 AM) Pulse: 69 (01/11/2024 11:31 AM) Resp: 18 (01/11/2024 11:31 AM) Temp: 36.3 ??C (97.4 ??F) (01/11/2024 11:31 AM) Temp src: Oral (01/11/2024 11:31 AM) SpO2: 97 % (01/11/2024 11:31 AM) Weight: 94.4 kg (208 lb 3.2 oz) (01/11/2024 11:31 AM) Height: 177.8 cm (5' 10 ) (01/10/2024 11:21 AM) Patient: met treatment parameters David Reyes Eriberto tolerated injection well Additional Notes: Discharge Plan Discharge instructions given to patient. Discharge Mode: Ambulatory Accompanied by: Self Discharged To: Home documented in this encounter Plan of Treatment [...] Chronic Care Management No change(03/23 1:47 PM HEALTH SERVICES MANAGER) No Ingrid Oden, RN Note: Problem: Chronic [...] neoplasm of prostate documented in this encounter Administered Medications Inactive Administered Medications - up to 3 most recent administrations Medication Order MAR Action Action Date Dose Rate Site leuprolide (3 month) (ELIGARD) subcutaneous injection 22.5 mg 22.5 mg, subcutaneous, Once, On Wed01/11/24 at 1230, For 1 dose, For subcutaneous use only. Allow product to reach room temperature before using.Indications:Prosta te cancer (HCC) Given 01/11/2024 12:28 PM CDT 22.5 mg Right Lower Abdomen documented in this encounter Orders Medications Ordered That Adiel ht Not Have Been Administered Count Last Ordered Date First Ordered Date leuprolide (3 month) (ELIGAR D) subcutaneous injection 22.5 mg 1 01/11/2024 Nursing Count Last Ordered Date First Orde red Date ONCBCN TREATMENT PARAMETERS 2 1 01/11/2024 Appointment Requests Count Last Ordered Date Fi rst Ordered Date ONCBCN INJECTION APPOINTMENT REQUEST 1 04/2023 documented in this encounter Care Teams Powder Operator Relationship Specialty Start Date End Date Kraig Ching MD [address] [place] [address] PCP - General 07/10/16 Gautam Cope MD [address] [place] [address] Medical Oncologist/Coiled Tubing Operator Medical Oncology 08/18/18 Tramaine Roe MD [address] [place] [address] Referring Physician Urology 08/18/18 Sukhwinder Uribe MD [address] [facility] [address] [place] [address] Consulting Physician Urology 08/18/18 Shay Guillermo MD [address] [place] [address] Referring Physician Urology 08/18/18 Marsha Landis, RN Registered Nurse 11/17/18 documented as of this encounter
--- OUTSIDE RECORDS SUMMARY | 2024-03-31 04:52 | XMS_ITS | Encounter Summary ---
Author Organization [facility] Healthcare Address [address] [place] [address] Care Team Providers Care Acid Tank Cleaner Name Role Phone Kraig Ching MD Primary Care Provider [phone] Gautam Cope MD Unavailable Tramaine Roe MD Unavailable [phone] Sukhwinder Uribe MD Unavailable [phone] Shay Guillermo MD Unavailable [phone] Marsha Landis RN Unavailable Unavailab le Reason for Referral * Consultation (Routine) - Closed Specialty Diagnoses / Procedures Referred By Contulices t Referred To Contact Physical Therapy Diagnoses Unsteady gait Chronic low back pain, unspecified back pain laterality, unspecified whether sciatica present Kraig Ching MD [address] [place] [address] Phone: tel: fax: Unknown Place of Service fax: Referral ID Status Reason Start Date Expiration Date V isits Requested Visits Authorized [id number] Closed Evaluate and Treat 08/19/2023 09/17/2024 24 24 Question Answer PTRFR PT Evaluate and Treat Therapy options discussed with patient? Yes Location provided for therapy services is: Patient requested/Patient preferred Please select the performing region: External Order [171] # of visits: 24 Comments [facility] PT Unsteady gait,back pain Encounter Details Date Type Department Care Team (Late st Contact Info) Description 08/19/2023 3:15 PM CDT Office Visit [facility] [address] [place] [address] Kraig Ching MD [address] [place] [address] Primary hypertension (Primary Dx); Hyperlipidemia associated with type 2 diabetes mellitus (HCC); Sepsis with acute hypoxic respiratory failure, due to unspecified organism, unspecified whether septic shock present (HCC); Chronic heart failure with preserved ejection fraction (CMS/HCC) (HCC); GABRIELA (acute kidney injury) (HCC); Unsteady gait; Chronic low back pain, unspecified back pain laterality, unspecified whether sciatica present Social History Tobacco Use Types Packs/Day Years Used Date Smoking Tobacco: Former Cigarettes 0.3 52 1 [id number] Passive Smoke Exposure: Past Smokeless Tobacco: Never Tobacco Cessation:Counseling Given: Not Answered Comments:Smoking History Packs/day: 10 Cigarettes Alcohol Use Standard Drinks/Week Comments [...] on file 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 Gender Identity Not on file Sexual Orientation Not on file documented as of this encounter Last Filed Vital Signs Vital Sign Reading Time Taken Comments Blood Pressure 130/80 08/19/2023 3:03 PM CDT Pulse 78 08/19/2023 3:03 PM CDT Temperature 37 ??C (98.6 ??F) 08/19/2023 3:03 PM CDT Respiratory Rate 18 08/19/2023 3:03 PM CDT Oxygen Saturation 98% 08/19/2023 3:03 PM CDT Inhaled Oxygen Concentration - - Weight 95.7 kg (211 lb) 08/19/2023 3:03 PM CDT Height 177.8 cm (5' 10 ) 08/19/2023 3:03 PM CDT Body Mass Index 30.28 08/19/2023 3:03 PM CDT documented in this encounter Progress Notes * Kraig Ching MD - 08/19/2023 3:15 PM CDT Subjective/Objective Patient ID: David Wei is a 82 y.o. male. Chief Complaint Dyspnea HPI 1.Dyspnea. He was admitted to the hospital 08/03/23 with complaints of dyspnea. He was hypoxic and placed on BIPAP. He was admitted to the hospital and diagnosed with sepsis. His oxygenation improved and he was discharged on antibiotics.Echocardiogram showed normal LV function and diastolic dysfuncti on.Blood cultures were positive for E.Coli. He has completed antibiotics. 2.HTN.He is prescribed carvedilol,lisimopril and chlorthalidone. His blood pressure is controlled at home. 3.Diabetes.He reports compliance with insulin and Jardiance.Diabetes is complicated by hyperlipidemia. He has a statin allergy;he tolerates pravastatin Review of Systems Constitutional: Positive for fatigue. HENT: Negative for sore throat. Eyes: Negative for visual disturbance. Respiratory: Negative for shortness of breath. Cardiovascular: Negative for chest pain. Gastrointestinal: Negative for abdominal pain. Genitourinary: Negative for hematuria. Musculoskeletal: Positive for back pain and gait problem. Negative for arthralgias. Skin: Negative for rash. Neurological: Negative for dizziness. BP 130/80 (BP Location: Left arm, Patient Position: Sitting) Pulse 78 Temp 37 ??C (98.6 ??F) (Temporal) Resp 18 Ht 177.8 cm (5' 10 ) Wt 95.7 kg (211 lb) SpO2 98% BMI 30.28 kg/m?? Physical Exam Constitutional: Appearance: He is well-developed. HENT: Head: Normocephalic. Eyes: Pupils: Pupils are equal, round, and reactive to light. Cardiovascular: Rate and Rhythm: Normal rate and regular rhythm. Pulmonary: Effort: Pulmonary effort is normal. Breath sounds: Normal breath sounds. Musculoskeletal: General: Normal range of motion. Feet: Right Foot: Monofilament exam: abnormal. Protective Sensation: 2 sites tested. 2 sites sensed. Left Foot: Monofilament exam: abnormal. Protective Sensation: 2 sites tested. 2 sites sensed. Skin: General: Skin is warm. Neurological: Mental Status: He is alert. Assessment/Plan Diagnoses and all orders for this visit: Primary hypertension (I10) (Primary) Assessment & Plan: Hypertension is controlled. Continue current regimen. Hyperlipidemia associated with type 2 diabetes mellitus ([facility]) (E11.69, E78.5) Assessment & Plan: .Continue Insulin.Reviewed proper diet.Continue pravastatin. Sepsis with acute hypoxic respiratory failure, due to unspecified organism, unspecified whether septic shock present ([facility]) (A41.9, R65.20, J96.01) Assessment & Plan: Hospitalization reviewed. Symptoms improved with antibiotics and supportive care. Orders: - CBC with auto differential; Future Chronic heart failure with preserved ejection fraction (CMS/[facility]) ([facility]) (I50.32) Assessment & Plan: Reviewed low sodium diet. GABRIELA (acute kidney injury) ([facility]) (N17.9) Assessment & Plan: Creatinine improved with hydration. Order BMP. Orders: - Basic metabolic panel; Future Unsteady gait (R26.81) - Ambulatory referral order to Physical Therapy -; Future Chronic low back pain, unspecified back pain laterality, unspecified whether sciatica present (M54.50, G89.29) - Ambulatory referral order to Physical Therapy -; Future documented in this encounter Miscellaneous Notes * Assessment & Plan Note - Kraig Ching MD - 08/19/2023 3:08 PM CDT Associated Problem(s): GABRIELA (acute kidney injury) (HCC) Creatinine improved with hydration. Order BMP. * Assessment & Plan Note - Kraig Ching MD - 08/19/2023 3:08 PM CDT Associated Problem(s): Chronic heart failure with preserved ejection fraction (CMS/HCC) (HCC) Reviewed low sodium diet. * Assessment & Plan Note - Kraig Ching MD - 08/18/2023 9:15 AM CDT Associated Problem(s): Sepsis with acute hypoxic respiratory failure (HCC) Hospitalization reviewed. Symptoms improved with antibiotics and supportive care. * Assessment & Plan Note - Kraig Ching MD - 08/18/2023 9:14 AM CDT Associated Problem(s): Hyperlipidemia associated with type 2 diabetes mellitus (HCC) .Continue Insulin.Reviewed proper diet.Continue pravastatin. * Assessment & Plan Note - Kraig Ching MD - 08/18/2023 9:14 AM CDT Associated Problem(s): Hypertension Hypertension is controlled. Continue current regimen. documented in this encounter Plan of Treatment Scheduled Referrals Name Type Priority Associated Diagnoses Orde r Schedule Ambulatory referral order to Physical Therapy - Outpatient Referral Routine Unsteady gait Chronic low back pain, unspecified back pain laterality, unspecified whether sciatica present Expected: 09/02/2023 (Approximate), Expires: 08/18/2024 documented as of this encounter Goals Goal [...] to monitor diabetes and kidney status, etc. [place] Chronic Pain Care Plan Chronic Care Management No change(03/23 1:47 PM PASSENGER RELATIONS REPRESENTATIVE) No Ingrid Oden, SHEA Note: Problem: Chronic Pain Goals: 1. Minimize further functional decline 2. Maximize quality of life 3. Control pain Strategies: - Activity/exercise program recommendation - Conservative stepwise pain medicine strategy with multi-disciplinary approach - Recommend healthy lifestyle strategies and compensatory methods as needed documented as of this encounter Procedures Procedure Name Priority Date/Time Associated Diagnosis Comments EGFR Routine 08/19/2023 3:15 PM CDT GABRIELA (acute kidney injury) (HCC) DIFFERENTIAL AUTO Routine 08/19/2023 3:1 5 PM CDT Sepsis with acute hypoxic respiratory failure, due to unspecified organism, unspecified whether septic shock present (HCC) CBC WITH AUTO DIFFERENTIAL Routine 08/19/2023 3:15 PM CDT Sepsis with acute hypoxic respiratory failure, due to unspecified organism, unspecified whether septic shock present (HCC) BASIC METABOLIC PANEL Routine 08/19/2023 3:15 PM CDT GABRIELA (acute kidney injury) (HCC) documented in this encounter Results * (ABNORMAL) eGFR (08/19/2023 3:15 PM CDT) eGFR 29(L) >=60 mL/min/1. 73 m2 Comment: Interpretive Data [...] interpretive data was last reviewed 2021. Blood 08/19/2023 3:15 PM CDT 08/19/2023 4:51 PM CDT us Kraig Ching MD LAB BLOOD ORDERABLES Final Re sult [facility] [place] [address] * (ABNORMAL) Differential, auto (08/19/2023 3:15 PM CDT) Neutrophil abs 11.5(H) 1.5 - 6.5 K/cumm Imm gran abs 0.1 0.0 - 0.1 K/cumm [facility] Lymphocyte abs 1.2 0.8 - 3.3 K/cumm [facility] Monocyte abs 0.8 0.2 - 0.8 K/cumm [facility] Eosinophil abs 0.1 0.0 - 0.5 K/cumm [facility] Basophil abs 0.0 0.0 - 0.1 K/cumm [facility] Neutrophil pct 84.4 % [facility] Comment: Interpretive Data Percent cell count reference ranges are not reported, since discordance with absolute values may lead to misinterpretation of CBC data. Current Interpretive Data was last revised on 2017. Imm gran pct 0.9 % [facility] Comment: Interpretive Data Percent cell count reference ranges are not reported, since discordance with absolute values may lead to misinterpretation of CBC data. Current Interpretive Data was last revised on 2017. Lymphocyte pct 8.5 % [facility] Comment: Interpretive Data Percent cell count reference ranges are not reported, since discordance with absolute values may lead to misinterpretation of CBC data. Current Interpretive Data was last revised on 2017. Monocyte pct 5.5 % [facility] Comment: Interpretive Data Percent cell count reference ranges are not reported, since discordance with absolute values may lead to misinterpretation of CBC data. Current Interpretive Data was last revised on 2017. Eosinophil pct 0.4 % [facility] Comment: Interpretive Data Percent cell count reference ranges are not reported, since discordance with absolute values may lead to misinterpretation of CBC data. Current Interpretive Data was last revised on 2017. Basophil pct 0.3 % [facility] Comment: Interpretive Data Percent cell count reference ranges are not reported, since discordance with absolute values may lead to misinterpretation of CBC data. Current Interpretive Data was last revised on 2017. Blood 08/19/2023 3:15 PM CDT 08/19/2023 4:45 PM CDT us Kraig Ching MD LAB BLOOD ORDERABLES Final Re sult [facility] [place] [address] * (ABNORMAL) CBC with auto differential (08/19/2023 3:15 PM CDT) WBC 13.9(H) 3.8 - 9.9 K/cumm Hgb 11.3(L) 13.0 - 17.5 g/dL [facility] Hct 34.9(L) 38.9 - 50.3 % [facility] Plt 372 150 - 400 K/cumm [facility] MPV 9.8 9.1 - 12.3 fL [facility] RBC 3.91(L) 4.30 - 5.80 M/cumm [facility] MCV 89.3 81.3 - 96.4 fL [facility] MCH 28.9 27.1 - 33.3 pg [facility] MCHC 32.4 32.3 - 35.7 g/dL [facility] RDW CV 13.7 11.1 - 14.9 % [facility] RDW SD 44.2 35.7 - 48.1 fL [facility] NRBC abs 0.00 0.00 - 0.01 K/cumm [facility] Blood 08/19/2023 3:1 5 PM CDT 08/19/2023 4:45 PM CDT Kraig Ching MD LAB BLOOD ORDERABLES Final Re sult Performing Organization Address [facility]/ZIP Co de Phone Number MERLINE PERDOMO [facility] Department [place] [address] * (ABNORMAL) Basic metabolic panel (08/19/2023 3:15 PM CDT) Sodium 140 135 - 145 mmol/L Potassium, pl 5.2(H) 3.3 - 4.9 mmol/L [facility] Chloride 105 97 - 110 mmol/L [facility] CO2 28 22 - 32 mmol/L [facility] Anion gap 7 2 - 15 mmol/L [facility] BUN 45(H) 6 - 25 mg/dL [facility] Creatinine 2.23(H) 0.80 - 1.30 mg/dL [facility] Glucose 136 70 - 199 mg/dL [facility] Comment: Interpretive Data Fasting glucose [...] Calcium 9.1 8.5 - 10.3 mg/dL [facility] Blood 08/19/2023 3:15 PM CDT 08/19/2023 4:45 PM CDT Kraig Ching MD LAB BLOOD ORDERABLES Final Re sult Performing Organization Address [facility] Co de Phone Number MERLINE Leyva [facility] Department [place] [address] documented in this encounter Visit Diagnoses Diagnosis Primary hypertension- Primary Unspecified essential hypertension Hyperlipidemia associated with type 2 diabetes mellitus (HCC) Sepsis with acute hypoxic respiratory failure, due to unspecified organism, unspecified whether septic shock present (HCC) Chronic heart failure with preserved ejection fraction (CMS/HCC) (HCC) GABRIELA (acute kidney injury) (HCC) Unsteady gait Abnormality of gait Chronic low back pain, unspecified back pain laterality, unspecified whether sciatica present documented in this encounter Care Teams Acid Tank Cleaner Relationship Specialty Start Date End Date Kraig Ching MD [address] [place] [address] PCP - General 07/10/16 Gautam Cope MD [address] [place] [address] Medical Oncologist/Optical Laboratory Manager Medical Oncology 08/18/18 Tramaine Roe MD [address] [place] [address] Referring Physician Urology 08/18/18 Sukhwinder Uribe MD [address] [place] [address] Consulting Physician Urology 08/18/18 Shay Guillermo MD [address] [place] [address] Referring Physician Urology 08/18/18 Marsha Landis, RN Registered Nurse 11/17/18 documented as of this encounter
--- OUTSIDE RECORDS SUMMARY | 2024-03-31 04:52 | XMS_ITS | Encounter Summary ---
Author Organization [facility] Healthcare Address [address] [place] [address] Care Team Providers Care Last Repairer Name Role Phone Kraig Ching MD Primary Care Provider [phone] Gautam Cope MD Unavailable Tramaine Roe MD Unavailable [phone] Sukhwinder Uribe MD Unavailable [phone] Shay Guillermo MD Unavailable [phone] Marsha Landis RN Unavailable Unavailab le Encounter Details Date Type Department Care Team (Late st Contact Info) Description 10/05/2023 1:00 PM CDT Office Visit [facility] 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 Gender Identity Not on file Sexual Orientation Not on file documented as of this encounter Last Filed Vital Signs Vital Sign Reading Time Taken Comments Blood Pressure 132/70 10/05/2023 12:30 PM CDT Pulse 80 10/05/2023 12:30 PM CDT Temperature 37 ??C (98.6 ??F) 10/05/2023 12:30 PM CDT Respiratory Rate 18 10/05/2023 12:30 PM CDT Oxygen Saturation 98% 10/05/2023 12:30 PM CDT Inhaled Oxygen Concentration - - Weight 96.2 kg (212 lb) 10/05/2023 12:30 PM CDT Height 177.8 cm (5' 10 ) 10/05/2023 12:30 PM CDT Body Mass Index 30.42 10/05/2023 12:30 PM CDT documented in this encounter Ordered Prescriptions Prescription Sig Dispense Quantity Refills Last Filled Start Date End Date carvediloL (COREG) 12.5 mg tablet Take 1 tablet (12.5 mg total) by mouth 2 (two) times a day with meals 60 tablet 11 10/05/2023 10/04/2024 documented in this encounter Progress Notes * Kraig Ching MD - 10/05/2023 1:00 PM CDT Subjective/Objective Patient ID: David Wei is a 82 y.o. male. Chief Complaint Hypertension HPI 1.HTN.He is prescribed carvedilol,lisimopril and chlorthalidone. His blood pressure is controlled at home. 2.Diabetes.He reports compliance with insulin and Jardiance.His HgbA1C was 7.9 on 07/27/23. Diabetesis complicated by CKD. His creatinine was 2.23 on 08/19/23.Diabetes is complicated by hyperlipidemia.He has a statin allergy;he tolerates pravastatin. 3.Prostate cancer. He is s/p prostatectomy. He follows with Oncology and is prescribed Zytiga. His PSA was undetectable 07/21/23. 4.Fatigue. He notes episodes of fatigue several daysa week. He relates symptoms to starting when his carvedilol was increased. Review of Systems Constitutional: Negative. HENT: Negative for sore throat. Eyes: Negative for visual disturbance. Respiratory: Negative for shortness of breath. Cardiovascular: Negative for chest pain. Gastrointestinal: Negative for abdominal pain. Genitourinary: Negative for hematuria. Musculoskeletal: Positive for arthralgias and back pain. Skin: Negative for rash. Neurological: Negative for dizziness. BP 132/70 (BP Location: Left arm, Patient Position: Sitting) Pulse 80 Temp 37 ??C (98.6 ??F) (Temporal) Resp 18 Ht 177.8 cm (5' 10 ) Wt 96.2 kg (212 lb) SpO2 98% BMI 30.42 kg/m?? Physical Exam Constitutional: Appearance: He is well-developed. HENT: Head: Normocephalic. Eyes: Pupils: Pupils are equal, round, and reactive to light. Cardiovascular: Rate and Rhythm: Normal rate and regular rhythm. Pulmonary: Effort: Pulmonary effort is normal. Breath sounds: Normal breath sounds. Musculoskeletal: General: Normal range of motion. Skin: General: Skin is warm. Neurological: Mental Status: He is alert. Assessment/Plan Diagnoses and all orders for this visit: Essential hypertension (I10) (Primary) Assessment & Plan: Hypertension is controlled. Decrease carvedilol to 12.5 mg. Type 2 diabetes mellitus with stage 3a chronic kidney disease, with long-term current use of insulin (HCC) (E11.22, N18.31, Z79.4) Assessment & Plan: Continue current regimen.Limit nephrotoxins.Reviewed creatinine. Avoid NSAIDS. Prostate cancer (HCC) (C61) Assessment & Plan: Follow with Oncology. Continue Zytiga. Hyperlipidemia, unspecified hyperlipidemia type (E78.5) Assessment & Plan: Continue pravastatin. Order lipid panel at next visit. Fatigue, unspecified type (R53.83) Assessment & Plan: Order TSH,B12. Decrease carvedilol to 12.5 mg BID. Orders: - Thyroid Function [place]; Future - Vitamin B12; Future Other orders - carvediloL (COREG) 12.5 mg tablet; Take 1 tablet (12.5 mg total) by mouth 2 (two) times a day with meals documented in this encounter Miscellaneous Notes * Assessment & Plan Note - Kraig Ching MD - 10/05/2023 12:55 PM CDT Associated Problem(s): Fatigue Order TSH,B12. Decrease carvedilol to 12.5 mg BID. * Assessment & Plan Note - Kraig Ching MD - 10/05/2023 5:50 AM CDT Associated Problem(s): Type 2 diabetes mellitus with stage 3a chronic kidney disease, with long-term current use of insulin (HCC) Continue current regimen.Limit nephrotoxins.Reviewed creatinine. Avoid NSAIDS. * Assessment & Plan Note - Kraig Ching MD - 10/05/2023 5:49 AM CDT Associated Problem(s): Hypertension, essential Hypertension is controlled. Decrease carvedilol to 12.5 mg. * Assessment & Plan Note - Kraig Ching MD - 10/05/2023 5:49 AM CDT Associated Problem(s): Prostate cancer (HCC) Follow with Oncology. Continue Zytiga. * Assessment & Plan Note - Kraig Ching MD - 10/05/2023 5:49 AM CDT Associated Problem(s): Hyperlipidemia Continue pravastatin. Order lipid panel at next visit. documented in this encounter Plan of Treatment Not on file documented as of this encounter Goals Goal Patient Goal Type Associated Problems Recent Progress Patient-Stated? Author ZKA General Goal - Patient is knowledgeable about condition when worsening and how to respond ACO Care Management No change(09/06 4:37 PM CDT) Ilene Yadav, SHEA Note: Problem: Knowledge deficit related to signs [...] Chronic Care Management No change(03/23 1:47 PM DROP FORGER) No Ingrid Oden RN Note: Problem: Chronic Pain Goals: 1. Minimize further functional decline 2. Maximize quality of life 3. Control pain Strategies: - Activity/exercise program recommendation - Conservative stepwise pain medicine strategy with multi-disciplinary approach - Recommend healthy lifestyle strategies and compensatory methods as needed documented as of this encounter Results * (ABNORMAL) Vitamin B12 (10/19/2023 11:05 AM CDT) Vitamin B12 227(L) 230 - 1,250 pg/mL Blood 10/19/2023 11:0 5 AM CDT 10/19/2023 11:22 AM CDT Kraig Ching MD LAB BLOOD ORDERABLES Final Re sult Performing Organization Address [facility] Co de Phone Number [facility] [place] [address] * (ABNORMAL) Thyroid Function [place] (10/19/2023 11:05 AM CDT) TSH 4.25(H) 0.30 - 4.20 mcIUnit/mL Blood 10/19/2023 11:0 5 AM CDT 10/19/2023 11:22 AM CDT Kraig Ching MD LAB BLOOD ORDERABLES Final Re sult Performing Organization Address City/[facility]/ZIP Co de Phone Number [facility] [place] [address] documented in this encounter Visit Diagnoses Diagnosis Essential hypertension- Primary Unspecified essential hypertension Type 2 diabetes mellitus with stage 3a chronic kidney disease, with long-term current use of insulin (HCC) Prostate cancer (HCC) Malignant neoplasm of prostate Hyperlipidemia, unspecified hyperlipidemia type Fatigue, unspecified type documented in this encounter Discontinued Medications Medication Sig Discontinue Reason Start Date End Da te carvediloL (COREG) 25 mg tabletIndications:CKD (chronic kidney disease) stage 3, GFR 30-59 ml/min (HCC) Take 1 tablet (25 mg total) by mouth 2 (two) times a day with meals Therapy completed 04/20/2023 10/05/2023 documented as of this encounter Care Teams Last Repairer Relationship Specialty Start Date End Date Kraig Ching MD [address] [place] [address] PCP - General 07/10/16 Gautam Cope MD [address] [place] [address] Medical Oncologist/Field Placement Director Medical Oncology 08/18/18 Tramaine Roe MD [address] [place] [address] Referring Physician Urology 08/18/18 Sukhwinder Uribe MD [address] [place] [address] Consulting Physician Urology 08/18/18 Shay Guillermo MD [address] [place] [address] Referring Physician Urology 08/18/18 Marsha Landis, RN Registered Nurse 11/17/18 documented as of this encounter
--- OUTSIDE RECORDS SUMMARY | 2024-03-31 04:52 | XMS_ITS | Encounter Summary ---
Author Organization [facility] of [facility] Address [address] [place] [address] Phone Care Team Providers Care Word Processor Name Role Phone Kraig Ching MD Primary Care Provider [phone] Gautam Cope MD Unavailable Tramaine Roe MD Unavailable Sukhwinder Uribe MD Unavailable [phone] Shay Guillermo MD Unavailable [phone] Marsha Landis RN Unavailable Unavailab le Reason for Visit * Consultation (Routine) - Authorized Specialty Diagnoses / Procedures Referred By Saleem narvaez Referred To Contact Oncology Diagnoses Prostate cancer (HCC) Tramaine Roe MD [address] [facility] [address] [place] [address] Phone: tel: fax: Gautam Cope MD [address] [facility], [address] [place] [address] Phone: tel: fax: Referral ID Status Reason Start Date Expiration Date Visits Requested Visits Authorized [id number] Authorized Specialty Services Required 08/15/2018 04/11/2024 99 99 Encounter Details Date Type Department Care Team (Late st Contact Info) Description 07/27/2023 10:15 AM CDT Lab [facility] [address] 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 [facility] Chronic Pain Care Plan Chronic Care Management No change(03/23 1:47 PM LEAD RUBY ON RAILS DEVELOPER) No Ingrid Oden, SHEA Note: Problem: [...] rst Ordered Date ONCBCN LAB APPOINTMENT 1 07/27/2023 documented in this encounter Care Teams Word Processor Relationship Specialty Start Date End Date Kraig Ching MD [address] [facility] [address] [place] [address] PCP - General 07/10/16 Gautam Cope MD [id number] [place] [address] Medical Oncologist/Unstacker Medical Oncology 08/18/18 Tramaine Roe MD [id number] [place] [address] Referring Physician Urology 08/18/18 Sukhwinder Uribe MD [address] [facility] [address] [place] [address] Consulting Physician Urology 08/18/18 Shay Guillermo MD [address] [facility] [address] [place] [address] Referring Physician Urology 08/18/18 Marsha Landis RN Registered Nurse 11/17/18 documented as of this encounter
--- OUTSIDE RECORDS SUMMARY | 2024-03-31 04:52 | XMS_ITS | Encounter Summary ---
Author Organization [facility] Address [address] [place] [address] Phone Care Team Providers Care Cisco Network Architect Name Role Phone Kraig Ching MD Primary Care Provider [phone] Gautam Cope MD Unavailable Tramaine Roe MD Unavailable [phone] Sukhwinder Uribe MD Unavailable [phone] Shay Guillermo MD Unavailable [phone] Marsha Landis RN Unavailable Unavailab le Reason for Visit * Reason Comments Injections Eligard * Episode Based Medications (Routine) - Authorized Specialty Diagnoses / Procedures Referred By Contac t Referred To Contact Oncology Diagnoses Prostate cancer (HCC) Procedures [place] LEUPROLIDE ACETATE SUSPNSION Leuprolide Every 3 Months - Prostate Gautam Cope MD [address] [facility] [address] [place] [address] Phone: tel: fax: [facility] - Infusion [address] [facility] Floor [address] [place] [address] Referral ID Status Reason Start Date Expiration Date V isits Requested Visits Authorized [id number] Authorized 09/06/2018 07/11/2024 1 50 Encounter Details Date Type Department Care Team (Late st Contact Info) Description 07/27/2023 12:00 PM CDT Infusion [facility] Oncology Counts include 234 beds at the [facility] 7th [place] [address] Prostate cancer (HCC) (Primary Dx) Social History [...] on file 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 male who presents for the following injection: Eligard. Nursing Assessment Nursing Assessment LOC: Alert, Awake Constitutional: Fatigue Fatigue: Constant Any falls since your last visit?: No Orientation: Oriented x4 Behavior: Calm Speech: Clear Language: No aphasia Vision: At baseline Peripheral Neuropathy: No Shortness of Breath?: Yes Respiratory Effort Characteristics: Dyspnea exertion Appetite: Good Nausea/Vomiting: No Abdomen: Soft Diarrhea: Yes (once in a while) Constipation: Yes (once in a while) Skin Condition/Temp: Dry, Warm Swelling: No BP: 121/63 Temp: 36.3 ??C (97.4 ??F) Temp src: Transdermal Pulse: 79 Resp: 18 SpO2: 95 % Weight: 95.7 kg (211 lb) Patient: met treatment parameters David Wei tolerated injection well Discharge Plan Discharge instructions given to patient. Discharge Mode: Wheelchair Accompanied by: Self Discharged To: Home documented [...] to monitor diabetes and kidney status, etc. [facility] Chronic Pain Care Plan Chronic Care Management No change(03/23 1:47 PM SOLAR PANEL TECHNICIAN) No Ingrid Oden, RN Note: Problem: Chronic [...] 22.5 mg 22.5 mg, subcutaneous, Once, On Wed07/27/23 at 1145, For 1 dose, For subcutaneous use only. Allow product to reach room temperature before using.Indications:Prosta te cancer (HCC) Given 07/27/2023 11:38 AM CDT 22.5 mg Right Lower Abdomen documented in this encounter Orders Medications Ordered That Adiel ht Not Have Been Administered Count Last Ordered Date First Ordered Date leuprolide (3 month) (ELIGAR D) subcutaneous injection 22.5 mg 1 07/27/2023 Nursing Count Last Ordered Date First Orde red Date ONCBCN TREATMENT PARAMETERS 2 1 07/27/2023 Appointment Requests Count Last Ordered Date Fi rst Ordered Date ONCBCN INJECTION APPOINTMENT REQUEST 1 07/11 documented in this encounter Care Teams Cisco Network Architect Relationship Specialty Start Date End Date Kraig Ching MD [address] [place], [place] [id number] PCP - General 07/10/16 Gautam Cope MD [address] [place] [address] Medical Oncologist/Embedded Systems Software Engineer Medical Oncology 08/18/18 Tramaine Roe MD [address] [facility] [address] [place] [address] Referring Physician Urology 08/18/18 Sukhwinder Uribe MD [address] [facility] [address] [place] [address] Consulting Physician Urology 08/18/18 Shay Guillermo MD [address] [facility] [address] [place] [address] Referring Physician Urology 08/18/18 Marsha Landis, RN Registered Nurse 11/17/18 documented as of this encounter
--- OUTSIDE RECORDS SUMMARY | 2024-03-31 04:52 | XMS_ITS | Encounter Summary ---
Author Organization [facility] of [facility] Address [address] [place] [address] Phone Care Team Providers Care Material Specialist Name Role Phone Kraig Ching MD Primary Care Provider [phone] Gautam Cope MD Unavailable Tramaine Roe MD Unavailable [phone] Sukhwinder Uribe MD Unavailable [phone] Shay Guillermo MD Unavailable [phone] Marsha Landis RN Unavailable Unavailab le Reason for Visit * Consultation (Routine) - Authorized Specialty Diagnoses / Procedures Referred By Saleem narvaez Referred To Contact Oncology Diagnoses Prostate cancer (HCC) Tramaine Roe MD [address] [facility] [address] [place] [address] Phone: tel: fax: Gautam Cope MD [address] [facility], [address] [place] [address] Phone: tel: fax: Referral ID Status Reason Start Date Expiration Date Visits Requested Visits Authorized [id number] Authorized Specialty Services Required 08/15/2018 04/11/2024 99 99 Encounter Details Date Type Department Care Team (Late st Contact Info) Description 10/19/2023 11:15 AM CDT Office Visit [facility] Oncology [address] [facility] 7th [place] [address] Gautam Cope MD [address] [facility] [address] [place] [address] Prostate cancer (HCC) (Primary Dx) Social History [...] on file 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 Gender Identity Not on file Sexual Orientation Not on file documented as of this encounter Last Filed Vital Signs Vital Sign Reading Time Taken Comments Blood Pressure 118/57 10/19/2023 11:27 AM CDT Pulse 70 10/19/2023 11:27 AM CDT Temperature 36.1 ??C (97 ??F) 10/19/2023 11:27 AM CDT Respiratory Rate 16 10/19/2023 11:27 AM CDT Oxygen Saturation 98% 10/19/2023 11:27 AM CDT Inhaled Oxygen Concentration - - Weight 95.7 kg (211 lb) 10/19/2023 11:27 AM CDT Height - - Body Mass Index 30.28 10/05/2023 12:30 PM CDT documented in this encounter Progress Notes * Beatris Herrmann NP - 10/19/2023 11:15 AM CDT PATIENT NAME: DAVID DREW : 1940 [place]: 10/19/2023 Mr. Drew is an 82-year-old with metastatic prostate cancer. He was diagnosed in 1999 when he presented the PSA of 5.5, ultimately undergoing a radical prostatectomy performed by Dr. Guillermo. Hewas found to have [place] 4 + 3 disease with extracapsular extension and a positive margin. He received adjuvant radiation therapy in November 1999. Thirteen years later, in June 2012, he was noted tohave a rising PSA and by 2018 it had reached double digits. In August 2018 he was found to have a local recurrence along with metastatic foci at L2. We then met the patient and started him on leuprolide, abiraterone, and prednisone in October 2018. He has had an excellent serological and radiographic response to treatment. Additional medical issues include hypertension, diabetes, hyperlipidemia, chronic kidney disease and chronic back pain. INTERVAL HiSTORY: David Drew returns for further follow up of metastatic prostate cancer. He is doing well with leuprolide, abiraterone and prednisone. He is taking abiraterone and prednisone properly. His hot flashes are most bothersome overnight, unchanged. He admits to urinary frequency and minor urinary in continence, both unchanged. He has chronic lower back pain, receiving steroid injections with Pain Management. He has limited in his ability to walk which is unchanged. He was hospitalized at [facility] last month for bacteremia. He presented with SOB and chills, and was hospitalized for 6 days and did not miss any abiraterone while hospitalized. He was discharged with antibiotics and his stomach has been not right since then. He also reports difficulty sleeping. He discussed the abdominal issues with his PCP who thought it may be related to all his medications. We do not have any information from his admission. Various CT-scans have shown ground-glass opacities, and in June the chest CT scan was stable. All other systems negative. PHYSICAL EXAMINATION: BP: 118/57 Temp: 36.1 ??C (97 ??F) Temp src: Transdermal Pulse: 70 Resp: 16 SpO2: 98 % Weight: 95.7 kg (211 lb) KPS 60%, more limited by his low back pain and arthritis. He has no palpable adenopathy. Lungs: Clear to auscultation and percussion. Cardiac: Occasional irregular rate with an S1 and S2 and an early systolic murmur. Abdomen: No hepatosplenomegaly or palpable masses. Bowel sounds are present. He has no abdominal tenderness. Extremities: Trace bilateral edema, R>L. He has good range of motion, but he moves fairly slowlyand it is difficult for him to stand up straight without back pain. Skin: Multiple areas of ecchymosis on his forearms. LABORATORY DATA: CBC: Lab Results Component Value Date WBC 10.9 (H) 10/19/2023 HGB 12.1 (L) 10/19/2023 HCT 36.7 (L) 10/19/2023 LABPLAT 298 10/19/2023 NEUTROABS 8.8 (H) 10/19/2023 CMP: Lab Results Component Value Date SODIUM [...] and treated with a radical prostatectomy for [place] 7 disease. He received adjuvant radiation therapy for adverse pathological features. Hormonal therapy was started in 2018 when he developed metastatic disease at L2 along with localrecurrence. He is doing well with leuprolide and abiraterone. Diabetes, on insulin. Chronic kidney disease, followed [...] are planning for another set of scans in 6 months. His next bone density is due in June 2024. The patient was given the opportunities to ask questions, which were answered to the best of my ability. He is comfortable with this plan and will call the office with any issues in between office visits. Beatris Herrmann ANP- Adult Nurse Practitioner Division of Medical Oncology [facility] Cosigned by Gautam Cope MD at 10/19/2023 4:41 PM CDT documented in this encounter Plan of Treatment [...] Management No change(09/06 4:37 PM CDT) Ilene Yadav., RN Note: Problem: Knowledge deficit - Complications [...] Chronic Care Management No change(03/23 1:47 PM TOOLROOM ATTENDANT) No Ingrid Oden, RN Note: Problem: Chronic Pain Goals: 1. Minimize further functional decline 2. Maximize quality of life 3. Control pain Strategies: - Activity/exercise program recommendation - Conservative stepwise pain medicine strategy with multi-disciplinary approach - Recommend healthy lifestyle strategies and compensatory methods as needed documented as of this encounter Results * PSA diagnostic (01/11/2024 11:10 AM CDT) PSA-Total <0.02 <=6.20 ng/mL Comment: Interpretive Data ?AGE ? SEX ?REFERENCE INTERVAL 0 minutes-150 years ?Female ?None 0 minutes-49 years ? Male ?None ? 50-59 years ? Male ?0-3.90 ? 60-69 years ? Male ?0-5.40 ? 70-79 years ? Male ?0-6.20 ? 80-150 years ?Male ?0-6.20 The [employer] PSA Total assay procedure was used. Results from different manufacturers or methods may not be comparable. Serial testing should be performed using the same method. Current interpretive data last revised 21. Blood 01/11/2024 11:1 0 AM CDT 01/11/2024 11:21 AM CDT us Gautam Cope MD LAB BLOOD ORDERABLES Final Resul t [facility] Department [place] [address] * (ABNORMAL) Comprehensive metabolic panel (01/11/2024 11:10 AM CDT) Sodium 141 135 - 145 mmol/L Potassium, pl 4.7 3.3 - 4.9 mmol/L [facility] Chloride 103 97 - 110 mmol/L [facility] CO2 31 22 - 32 mmol/L [facility] Anion gap 7 2 - 15 mmol/L [facility] BUN 39(H) 6 - 25 mg/dL [facility] Creatinine 1.93(H) 0.80 - 1.30 mg/dL [facility] Glucose 152 70 - 199 mg/dL [facility] Comment: Interpretive Data Fasting glucose >/= 126 [...] 2022. Calcium 9.1 8.5 - 10.3 mg/dL [facility] Bilirubin, total 0.5 0.1 - 1.2 mg/dL [facility] Protein, pl 6.7 6.5 - 8.5 g/dL [facility] Albumin 3.6 3.5 - 5.0 g/dL [facility] Alk phos 140(H) 40 - 130 Units/L [facility] ALT 9 7 - 55 Units/L [facility] AST 14 10 - 50 Units/L [facility] Blood 01/11/2024 11:1 0 AM CDT 01/11/2024 11:21 AM CDT us Gautam Cope MD LAB BLOOD ORDERABLES Final Resul t [facility] [place] [address] * (ABNORMAL) CBC with auto differential (01/11/2024 11:10 AM CDT) WBC 14.0(H) 3.8 - 9.9 K/cumm Comment:Testing performed by : [facility], [address] [place] [address] Hgb 12.9(L) 13.0 - 17.5 g/dL [facility] Comment:Testing performed by : [facility], [address] [place] [address] Hct 40.7 38.9 - 50.3 % [facility] Comment:Testing performed by : [facility], [address] [place] [address] Plt 381 150 - 400 K/cumm [facility] Comment:Testing performed by : [facility], [address] [place] [address] MPV 7.6 6.8 - 10.4 fL [facility] Comment:Testing performed by : [facility], [address] [place] [address] RBC 4.67 4.30 - 5.80 M/cumm [facility] Comment:Testing performed by : [facility], [address] [place] [address] MCV 87.2 81.3 - 96.4 fL [facility] Comment:Testing performed by : [facility], [address] [place] [address] MCH 27.7 27.1 - 33.3 pg [facility] Comment:Testing performed by : [facility], [address] [place], [place] [id number] MCHC 31.8(L) 32.3 - 35.7 g/dL [facility] Comment:Testing performed by : [facility], [address] [place], [place] [id number] RDW CV 15.0(H) 11.1 - 14.9 % [facility] Comment:Testing performed by : [facility], [address] [place], [place] [id number] NRBC abs 0.00 0.00 - 0.01 K/cumm [facility] Comment:Testing performed by : [facility], [address] [place], [place] [id number] Blood 01/11/2024 11:1 0 AM CDT 01/11/2024 11:13 AM CDT Gautam Cope MD LAB BLOOD ORDERABLES Final Resul t Performing Organization Address [facility] Co de Phone Number [facility] Department [place] [address] * Lactate dehydrogenase (LD) (01/11/2024 11:10 AM CDT) Lactate dehydrogenase (LDH) 191 100 - 250 Units/L Blood 01/11/2024 11:1 0 AM CDT 01/11/2024 11:21 AM CDT Gautam Cope MD LAB BLOOD ORDERABLES Final Resul t Performing Organization Address [facility] Co de Phone Number [facility] [place] [address] * (ABNORMAL) Hemoglobin A1c (10/19/2023 11:05 AM CDT) Hgb A1C 8.0(H) 4.0 - 5.6 % Estimated Average Glucose 183 mg/dL [facility] Comment: The ADA recommends reporting an [...] MD LAB BLOOD ORDERABLES Final Resul t [facility] One [facility] [place] [address] documented in this encounter Visit Diagnoses Diagnosis Prostate cancer (HCC)- Primary Malignant neoplasm of prostate documented in this encounter Orders Appointment Requests Count Last Ordered Date Fi rst Ordered Date ONCBCN CLINIC APPOINTMENT REQUEST 2 024 10/19/2023 ONCBCN INJECTION APPOINTMENT REQUEST 1 04/2023 ONCBCN LAB APPOINTMENT 1 01/11/2024 documented in this encounter Care Teams Material Specialist Relationship Specialty Start Date End Date Kraig Ching MD [address] [place] [address] PCP - General 07/10/16 Gautam Cope MD [address] [place] [address] Medical Oncologist/Flue Cleaner Medical Oncology 08/18/18 Tramaine Roe MD [address] [place] [address] Referring Physician Urology 08/18/18 Sukhwinder Uribe MD [address] [place] [address] Consulting Physician Urology 08/18/18 Shay Guillermo MD [address] [facility] [address] [place] [address] Referring Physician Urology 08/18/18 Mrasha Landis, RN Registered Nurse 11/17/18 documented as of this encounter
--- OUTSIDE RECORDS SUMMARY | 2024-03-31 04:52 | XMS_ITS | Encounter Summary ---
Author Organization [facility] Address [address] [place] [address] Phone Care Team Providers Care Mine Car Mechanic Name Role Phone Kraig Ching MD Primary Care Provider [phone] Gautam Cope MD Unavailable Tramaine Roe MD Unavailable [phone] Sukhwinder Uribe MD Unavailable [phone] Shay Guillermo MD Unavailable [phone] Marsha Landis RN Unavailable Unavailab le Reason for Visit * Consultation (Routine) - Authorized Specialty Diagnoses / Procedures Referred By Saleem narvaez Referred To Contact Nephrology Diagnoses Prostate cancer (HCC) Lin Guerrero MD [address] [place] [address] Phone: tel: fax: Lin Guerrero MD [address] [place] [address] Phone: tel: fax: Referral ID Status Reason Start Date Expiration Date Visits Requested Visits Authorized [id number] Authorized Specialty Services Required 11/22/2023 12/21/2024 99 99 Encounter Details Date Type Department Care Team (Latest Contact Info) Description 12/01/2023 4:40 PM CDT Office Visit [facility] Nephrology [address] 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 Gender Identity Not on file Sexual Orientation Not on file documented as of this encounter Last Filed Vital Signs Vital Sign Reading Time Taken Comments Blood Pressure 148/81 12/01/2023 4:33 PM CDT Pulse 101 12/01/2023 4:24 PM CDT Temperature 36.3 ??C (97.4 ??F) 12/01/2023 4:24 PM CD T Respiratory Rate - - Oxygen Saturation - - Inhaled Oxygen Concentration - - Weight 92.5 kg (204 lb) 12/01/2023 4:24 PM CDT Height 177.8 cm (5' 10 ) 12/01/2023 4:24 PM CDT Body Mass Index 29.27 12/01/2023 4:24 PM CDT documented in this encounter Patient Instructions * Patient Instructions* Lin Guerrero MD - 12/01/2023 4:40 PM CDT Increase lisinopril to 40 mg daily for better BP control documented in this encounter Ordered Prescriptions Prescription Sig Dispense Quantity Refills Last Filled Start Date End Date lisinopriL (PRINIVIL,ZESTRIL) 40 mg tablet Take 1 tablet (40 mg total) by mouth daily 90 tablet 3 12/01/2023 11/30/2024 documented in this encounter Progress Notes * Lin Guerrero MD - 12/01/2023 4:40 PM CDT NEPHROLOGY SUBSEQUENT OFFICE VISIT NOTE NAME: DAVID DREW DATE OF : 1940 DATE OF VISIT: 12/01/2023 MEDICAL PROBLEM LIST: CKD stage 3 likely secondary to diabetes mellitus and hypertension COPD Paroxysmal atrial fibrillation, Xarelto on hold Type II diabetes mellitus, not on insulin Essential Hypertension Dyslipidemia Pancreatitis in 1999 Duodenal Ulcer, EGD 10/2017 Metastatic prostate cancer, diagnosed in 1999, status post radical prostatectomy, adjuvant radiation therapy and hormonal therapy. He is currently on Lupron, abiraterone, and prednisone 10. Prolapsed intervertebral disc 11. COVID-19, 06/2022 REASON FOR OFFICE VISIT: Follow up for CKD INTERVAL HISTORY: Mr. David Drew is a 83 year-old gentleman who returns for follow up of his CKD stage 3. He was last seen in the nephrology clinic in 07/2022. In the interim, he has been doing relatively well. He did have cataract surgery a few months ago and did well. Today he reports feelingwell. He still has back pain and he takes oxycontin PRN. He does not use NSAIDs. He denies chest pain, shortness of breath, dizziness, edema, or urinary symptoms. He measures his BP at home every dayand BP ranges 140-150/70-80. He has decreased salt intake. REVIEW OF SYSTEMS: All other systems are negative. MEDICATIONS: Current Outpatient Medications Medication Sig Dispense Refill abiraterone (ZYTIGA) 250 mg tablet Take 4 tablets (1,000 mg total) by mouth daily Take with a glassof water, on an empty stomach at least 1 hr before or 2 hrs after food. 120 tablet 6 Accu-Chek Fastclix Lancet Drum misc USE DIRECTED 204 each 0 Accu-Chek Guide test strips strip USE DIRECTED TWICE DAILY 200 strip 0 carvediloL (COREG) 12.5 mg tablet Take 1 tablet (12.5 mg total) by mouth 2 (two) times a day with meals 60 tablet 11 chlorthalidone (HYGROTON) 25 mg tablet Take 1 tablet (25 mg total) by mouth daily 90 tablet 0 cyanocobalamin (Vitamin B-12) 1,000 mcg tablet Take 1 tablet (1,000 mcg total) by mouth daily dorzolamide-timoloL (COSOPT) 22.3-6.8 mg/mL ophthalmic solution Administer 1 drop into both eyes 2 (two) times a day (Patient taking differently: Administer 1 drop into both eyes 2 (two) times a day)10 mL 11 insulin glargine (LANTUS) 100 unit/mL (3 mL) pen for injection ADMINISTER 28 UNITS UNDER THE SKIN DAILY (Patient taking differently: Inject 28 Units under the skin nightly ADMINISTER 28 UNITS UNDER THE SKIN DAILY) 9 mL 11 Januvia 25 mg tablet TAKE 1 TABLET BY MOUTH DAILY (Patient taking differently: Take 1 tablet (25 mgtotal) by mouth nightly) 30 tablet 11 NovoLOG 100 unit/mL (3 mL) pen for injection ADMINISTER 8 UNITS UNDER THE SKIN THREE TIMES DAILY BEFORE MEALS (Patient taking differently: Inject 8 Units under the skin 3 (three) times a day with meals Plus Sliding Scale) 3 mL 11 oxyCODONE (ROXICODONE) 5 mg immediate release tablet Take 1 tablet (5 mg total) by mouth every 6 (six) hours as needed for pain [address] (PROTONIX) 40 mg EC tablet TAKE 1 TABLET(40 MG) BY MOUTH DAILY 90 tablet 1 pen needle, diabetic (BD Ultra-Fine Short Pen Needle) 31 gauge x 5/16 needle USE TO INJECT INSULIN4 TIMES EVERY DAY DIRECTED 400 each 11 pravastatin (PRAVACHOL) 20 mg tablet Take 1 tablet (20 mg total) by mouth nightly 90 tablet 3 predniSONE (DELTASONE) 5 mg tablet Take 1 tablet (5 mg) by mouth two times a day 60 tablet 11 PreviDent 5000 Plus 1.1 % cream Apply topically nightly albuterol HFA (PROVENTIL HFA,VENTOLIN HFA,PROAIR HFA) 90 mcg/actuation inhaler Inhale 2 puffs every8 (eight) hours as needed for wheezing or shortness of breath (Patient not taking: Reported on 10/07/2023) lisinopriL (PRINIVIL,ZESTRIL) 40 mg tablet Take 1 tablet (40 mg total) by mouth daily 90 tablet 3 No current facility-administered medications for this visit. PHYSICAL EXAM: GENERAL: A very pleasant male in no apparent distress Vitals: 12/01/23 1624 12/01/23 1633 BP: 147/68 148/81 Pulse: 101 Temp: 36.3 ??C (97.4 ??F) Weight: 92.5 kg (204 lb) Height: 177.8 cm (5' 10 ) HEENT: Sclerae anicteric. Mucus membranes pink and moist. Oropharynx clear HEART: Regular rhythm and rate, S1 S2 normal, no murmurs, rub or gallop LUNGS: Clear to auscultation bilaterally ABDOMEN: Soft, non-tender, non-distended, bowel sounds normal EXTREMITIES: No edema SKIN: No rash NEURO: Alert and oriented x3. No focal motor deficits PSYCH: Pleasant, cooperative, in no apparent distress MUSCULOSKELETAL: No joint swelling or tenderness LABORATORY DATA Resulted in the Past 12 Months 10/19/23 1105 08/19/23 1515 07/27/23 1022 05/04/23 1023 03/18/23 1615 02/09/23 1029 SODIUM 140 140 142 140 < > 141 POTASSIUM 4.4 5.2* 4.2 4.5 < > 4.2 CO2 29 28 28 27 < > 30 BUNSER 35* 45* 40* 44* < > 34* CREATININE 2.14* 2.23* 2.21* 2.26* < > 1.97* ALBUMIN 3.9 -- 3.9 3.7 -- 4.2 CALCIUM 9.2 9.1 9.1 8.8 < > 9.6 HGB 12.1* 11.3* 12.6* 12.5* -- 12.5* < > = values in this interval not displayed. DATE Na K CO2 BUN SCr Alb Ca Phos iPTH 25-OH Vit D Hb TSAT Ferritin U P/C U Alb/Cr eGFR (CKD-EPI) 09/04/2020 136 5.3 26 51 2.87 4.0 9.3 4.6 19 12.2 02/06/2020 137 4.3 29 36 1.80 4.2 9.5 12.4 12/07/2019 138 4.2 30 28 1.65 4.0 9.2 0.5 39 11/14/2019 139 4.3 29 37 2.19 4.2 9.6 12.8 08/22/2019 139 4.7 30 38 1.81 4.2 9.3 29 05/30/2019 137 4.6 03/07/2019 1.75 03/07/2018 1.41 07/22/2016 1.34 07/16/2022: Urinalysis - specific gravity 1.011, pH 6.5, 1+ protein, no blood, unremarkable urine microscopy ASSESSMENT AND PLAN: Chronic kidney disease, stage 3b, progressing to stage 4: The etiology of CKD is likely uncontrolled hypertension and diabetes mellitus. Renal function has remained relatively stable in the last two years with baseline creatinine of 2.1-2.2. Today, we discussed the importance of improved glycemic and BP control. Hypertension: His BP is not optimally controlled. Today, I asked patient to increase lisinopril to 40 mg daily. We also discussed the importance of a low- sodium diet. Anemia of CKD: Hemoglobin has remained relatively stable and was 12.1 last month. No need for AHSAN at this time. Secondary hyperparathyroidism: Calcium and phosphorus are within goal. 25-OH vitamin D and iPTH were normal in 2022. Will check iPTH again before the next visit. DISPOSITION: The patient will return follow up in 6 months with labs (RFP, iPTH, UA with micro, UPCR). Lin Guerrero MD, [employer] marketing assistant documented in this encounter Plan of Treatment [...] Chronic Care Management No change(03/23 1:47 PM FAMILY CONSUMER SCIENCE FCS TEACHER) No Ingrid Oden, SHEA Note: Problem: Chronic Pain Goals: 1. Minimize further functional decline 2. Maximize quality of life 3. 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 chronic kidney disease (HCC) Secondary hyperparathyroidism of renal origin (HCC) Secondary hyperparathyroidism (of renal origin) documented in this encounter Discontinued Medications Medication Sig Discontinue Reason Start Date End Da te lisinopriL (PRINIVIL,ZESTRIL) 30 mg tablet Take 1 tablet (30 mg total) by mouth daily Reorder 11/15/2023 12/01/2023 documented as of this encounter Orders Outpatient Referral Count Last Ordered Date Fir st Ordered Date AMB REFERRAL TO NEPHROLOGY 1 12/01/2023 documented in this encounter Care Teams Mine Car Mechanic Relationship Specialty Start Date End Date Kraig Ching MD [address] [place] [address] PCP - General 07/10/16 Gautam Cope MD [address] [place] [address] Medical Oncologist/Ore Grader Medical Oncology 08/18/18 Tramaine Roe MD [address] [place] [address] Referring Physician Urology 08/18/18 Sukhwinder Uribe MD [address] [place] [address] Consulting Physician Urology 08/18/18 Shay Guillermo MD [address] [place] [address] Referring Physician Urology 08/18/18 Marsha Landis, RN Registered Nurse 11/17/18 documented as of this encounter
--- OUTSIDE RECORDS SUMMARY | 2024-03-31 04:52 | XMS_ITS | Encounter Summary ---
Author Organization [facility] Address [address] [place] [address] Care Team Providers Care Director Of Student Financial Services Name Role Phone Kraig Ching MD Primary Care Provider [phone] Gautam Cope MD Unavailable Tramaine Roe MD Unavailable [phone] Sukhwinder Uribe MD Unavailable [phone] Shay Guillermo MD Unavailable [phone] Marsha Landis RN Unavailable Unavailab le Reason for Visit * Reason Comments Injections Eligard * Episode Based Medications (Routine) - Authorized Specialty Diagnoses / Procedures Referred By Contac t Referred To Contact Oncology Diagnoses Prostate cancer (HCC) Procedures NM LEUPROLIDE ACETATE SUSPNSION Leuprolide Every 3 Months - Prostate Gautam Cope MD [address] [facility] [address] [place] [address] Phone: tel: fax: [facility] - Infusion [address] [facility] [address] [place] [address] Referral ID Status Reason Start Date Expiration Date V isits Requested Visits Authorized [id number] Authorized 09/06/2018 07/11/2024 1 50 Encounter Details Date Type Department Care Team (Late st Contact Info) Description 10/19/2023 12:15 PM CDT Infusion 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 male [...] PRN: No Pt is on oxygen?: No Cough: Absent Appetite: Good Have You Recently Lost Weight Without Trying?: No Have you been eating poorly because of a decreased appetite?: No Malnutrition Screening Tool (MST) Score: 0 Nausea/Vomiting: No Abdomen: Soft Diarrhea: No Constipation: No Last BM Date: 10/19/23 Skin Condition/Temp: Warm, Dry Swelling: No Additional Notes: Enc Vitals BP: 118/57 (10/19/2023 11:27 AM) Pulse: 70 (10/19/2023 11:27 AM) Resp: 16 (10/19/2023 11:27 AM) Temp: 36.1 ??C (97 ??F) (10/19/2023 11:27 AM) Temp src: Transdermal (10/19/2023 11:27 AM) SpO2: 98 % (10/19/2023 11:27 AM) Weight: 95.7 kg (211 lb) (10/19/2023 11:27 AM) Patient: met treatment parameters David Eric Wei tolerated injection well Additional Notes: Discharge Plan [...] Chronic Care Management No change(03/23 1:47 PM BLOW DOWN HELPER) No Ingrid Oden, SHEA Note: Problem: Chronic [...] 22.5 mg 22.5 mg, subcutaneous, Once, On Wed10/19/23 at 1230, For 1 dose, For subcutaneous use only. Allow product to reach room temperature before using.Indications:Prosta te cancer (HCC) Given 10/19/2023 12:25 PM CDT 22.5 mg Left Lower Abdomen documented in this encounter Orders Medications Ordered That Adiel ht Not Have Been Administered Count Last Ordered Date First Ordered Date leuprolide (3 month) (ELIGAR D) subcutaneous injection 22.5 mg 1 10/19/2023 Nursing Count Last Ordered Date First Orde red Date ONCBCN TREATMENT PARAMETERS 2 1 10/19/2023 Appointment Requests Count Last Ordered Date Fi rst Ordered Date ONCBCN INJECTION APPOINTMENT REQUEST 1 0 12/2023 documented in this encounter Care Teams Director Of Student Financial Services Relationship Specialty Start Date End Date Kraig Ching MD [address] [facility] [address] [place] [address] PCP - General 07/10/16 Gautam Cope MD [address] [facility] [address] [place] [address] Medical Oncologist/Reliability Specialist Medical Oncology 08/18/18 Tramaine Roe MD [address] [facility] [address] [place] [address] Referring Physician Urology 08/18/18 Sukhwinder Uribe MD [address] [facility] [address] [place] [address] Consulting Physician Urology 08/18/18 Shay Guillermo MD [address] [facility] [address] [place] [address] Referring Physician Urology 08/18/18 Marsha Landis, RN Registered Nurse 11/17/18 documented as of this encounter
--- OUTSIDE RECORDS SUMMARY | 2024-03-31 04:53 | XMS_ITS | Encounter Summary ---
Author Organization [facility] Address [address] [place] [address] Phone Care Team Providers Care Mortgage Loan Assistant Name Role Phone Kraig Ching MD Primary Care Provider Gautam Cope MD Unavailable Tramaine Roe MD Unavailable [phone] Sukhwinder Uribe MD Unavailable [phone] Shay Guillermo MD Unavailable [phone] Marsha Landis RN Unavailable Unavailab le Encounter Details Date Type Department Care Team (Late st Contact Info) Description 04/27/2023 Orders Only [facility] Oncology [address] [facility] 7th [place] [address] [place] [address] Gautam Cope MD [address] [facility] [address] [place] [address] Social History Tobacco Use Types Packs/Day Years Used Date Smoking Tobacco: Former Cigarettes 0.3 52 1 958 - 2010 Smokeless Tobacco: Never Comments:Smoking History Pac ks/day: 10 Cigarettes Alcohol Use Standard Drinks/Week Comments Yes 0 (1 standard drink = 0.6 oz pur e alcohol) Occasional glass of wine. AUDIT-C Answer Date Recorded Q1: How often do you have a drink containing alc ohol? 2-3 times a week 04/30/2023 Q2: How many drinks containi ng alcohol do you have on a typical day when you are drinking? 1 or 2 04/30/2023 Q3: How often do you have si x or more drinks on one occasion? 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 Minimize further functional decline 2. Maximize quality of life 3. Control pain Strategies: - Activity/exercise program recommendation - Conservative stepwise pain medicine strategy with multi-disciplinary approach - Recommend healthy lifestyle strategies and compensatory methods as needed documented as of this encounter Visit Diagnoses Not on filedocumented in this encounter Care Teams Mortgage Loan Assistant Relationship Specialty Start Date End Date Kraig Ching MD [address] [facility] [address] [place] [address] PCP - General 07/10/16 Gautam Cope MD [address] [facility] [address] [place] [address] Medical Oncologist/Fur Dressing Supervisor Medical Oncology 08/18/18 Tramaine Roe MD [address] [facility] [address] [place] [address] Referring Physician Urology 08/18/18 Sukhwinder Uribe MD [address] [facility] [address] [place] [address] Consulting Physician Urology 08/18/18 Shay Guillermo MD [address] [facility] [address] [place] [address] Referring Physician Urology 08/18/18 Marsha Landis, RN Registered Nurse 11/17/18 documented as of this encounter
--- OUTSIDE RECORDS SUMMARY | 2024-03-31 04:53 | XMS_ITS | Encounter Summary ---
Author Organization [facility] Address [address] [place] [address] Phone Care Team Providers Care Party Plan Demonstrator Name Role Phone Kraig Ching MD Primary Care Provider [phone] Gautam Cope MD Unavailable Tramaine Roe MD Unavailable [phone] Sukhwinder Uribe MD Unavailable [phone] Shay Guillermo MD Unavailable [phone] Marsha Landis RN Unavailable Unavailab le Reason for Visit * Consultation (Routine) - Authorized Specialty Diagnoses / Procedures Referred By Saleem narvaez Referred To Contact Oncology Diagnoses Prostate cancer (HCC) Tramaine Roe MD [address] [facility] [address] [place] [address] Phone: tel: fax: Gautam Cope MD [address] [facility], [address] [place] [address] Phone: tel: fax: Referral ID Status Reason Start Date Expiration Date Visits Requested Visits Authorized [id number] Authorized Specialty Services Required 08/15/2018 04/11/2024 99 99 Encounter Details Date Type Department Care Team (Late st Contact Info) Description 07/27/2023 11:00 AM CDT Office Visit [facility] [address] 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 Gender Identity Not on file Sexual Orientation Not on file documented as of this encounter Last Filed Vital Signs Vital Sign Reading Time Taken Comments Blood Pressure 121/63 07/27/2023 10:37 AM CDT Pulse 79 07/27/2023 10:37 AM CDT Temperature 36.3 ??C (97.4 ??F) 07/27/2023 10:35 AM C DT Respiratory Rate 18 07/27/2023 10:35 AM CDT Oxygen Saturation 95% 07/27/2023 10:37 AM CDT Inhaled Oxygen Concentration - - Weight 95.7 kg (211 lb) 07/27/2023 10:35 AM CDT Height - - Body Mass Index 29.85 05/20/2023 2:00 PM TASSEL SNIPPER documented in this encounter Progress Notes * Gautam Cope MD - 07/27/2023 12:00 AM CDT PATIENT NAME: DAVID DREW : 1940 [place]: 07/27/2023 Mr. Drew is an 82-year-old with metastatic prostate cancer. He was diagnosed in 1999 when he presented the PSA of 5.5, ultimately undergoing a radical prostatectomy performed by Dr. Guillermo. Hewas found to have [place] Vincent 4 + 3 disease with extracapsular extension [...] excellent serological and radiographic response to treatment. He does have hot flashes and does have urinary frequency and some minor incontinence. He finds his frequency may be starting to become a little bit more urgent and frequent in the last 6 months. The patient is followed by Pain Management for chronic lower back pain, receiving steroid injections and currently he is somewhat limited in his ability to walk and move. He is on physical therapy 2 days a week through the [facility] system. He had a CT scan done for some ground-glass opacities in June and this was stable showing no progression of the disease. He has had bilateral cataract replacement and his eyesight is much improved. The patient had a thorough cardiac workup before mary luca.. They noticed some mild aortic stenosis, and some atrial flutter-fib. No changes compared to his echo from 4 or 5 years ago. His ejection fraction was thought to be 71%. He continues to work onhis blood pressure and tries to lose weight. Additional medical issues include hypertension, diabetes, and hyperlipidemia. He enjoys watching the birds in his yard with numerous bird feeders, and also has regular visits from foxes. PHYSICAL EXAMINATION: Vital Signs: Exam shows a male whose weight is 95.7 kg. Blood pressure 121/63, pulse 79. He is afebrile and O2 saturation is 95%. Performance Status: 60%, more limited by his low back pain and arthritis. He has no palpable adenopathy. Lungs: Clear to auscultation and percussion. Cardiac: Occasional irregular rate with an S1 and S2 and an early systolic murmur. Abdomen: No hepatosplenomegaly or palpable masses. Bowel sounds are present. He has no abdominal tenderness. Extremities: No edema. He has good range of motion, but he moves fairly slowly and it is difficult for him to stand up straight without back pain. LABORATORY DATA: Laboratories today show a hemoglobin of 12.6, white count 12,400, platelet count 347,000. His Creatinine today is 2.21 with an eGFR of 29. His A1c is better today at 7.9, with his PSA remaining <0.02. Other laboratories from today are pending. ASSESSMENT AND PLAN: 1. Metastatic prostate cancer, remaining on Lupron, abiraterone, and prednisone, with outstanding control of his disease. He was diagnosed originally with prostate cancer in 1999 and treated with a radical prostatectomy for [place] Vincent 7 disease. He did receive adjuvant radiation therapy for adverse pathological features. Hormonal therapy was begun in 2018 when he developed metastatic disease at L2 along with local recurrence. Last set of cross-sectional imaging was done on 2020 and we are planningto repeat another set of scans 9 months from now. His next bone density is due in June 2024 also. 2. Diabetes, on insulin. 3. Chronic kidney disease, followed by Nephrology. 4. Chronic low back pain, secondary to degenerative joint disease, followed by Pain Management. 5. Ground-glass opacity in lung, stable as of June. We will look again next year. 6. Cardiac arrhythmias his atrial stenosis followed by Cardiology. We will see the patient again 12 weeks from now. ELECTRONICALLY SIGNED - 07/27/2023 01:35 PM Gautam Cope M.D. manager creative GLORIA/axel documented in this encounter Plan of Treatment [...] Chronic Care Management No change(03/23 1:47 PM TASSEL SNIPPER) No Ingrid Oden, SHEA Note: Problem: Chronic Pain Goals: 1. Minimize further functional decline 2. Maximize quality of life 3. Control pain Strategies: - Activity/exercise program recommendation - Conservative stepwise pain medicine strategy with multi-disciplinary approach - Recommend healthy lifestyle strategies and compensatory methods as needed documented as of this encounter Results * PSA diagnostic (10/19/2023 11:05 AM CDT) [...] ORDERABLES Final Resul t Performing Organization Address City/State/[facility] Co de Phone Number [facility] One [facility] [place] [address] * (ABNORMAL) Comprehensive metabolic panel (10/19/2023 11:05 AM CDT) Pathologist [facility] Sodium 140 135 - 145 mmol/L Comment:Testing performed by : [facility], [address] [facility] [phone] Potassium, pl 4.4 3.3 - 4.9 mmol/L [facility] Comment:Testing performed by : [facility], [address] [facility] [phone] Chloride 104 97 - 110 mmol/L CERNER BJ Comment:Testing performed by : [facility], [address] [place] [phone] CO2 29 22 - 32 mmol/L CERNER BJ Comment:Testing performed by : [facility], [address] [place] [phone] Anion gap 7 2 - 15 mmol/L CERNER BJ Comment:Testing performed by : [facility], [address] [place] [phone] BUN 35(H) 6 - 25 mg/dL CERNER BJ Comment:Testing performed by : [facility], [address] [place] [phone] Creatinine 2.14(H) 0.80 - 1.30 mg/dL CERNER BJ Comment:Testing performed by : [facility], [address] [place] [phone] Glucose 110 70 - 199 mg/dL CERNER [...] was last revised 2022. Testing performed by: [facility], [address] [place] [phone] Calcium 9.2 8.5 - 10.3 mg/dL CERNER BJ Comment:Testing performed by : [facility], [address] [place] [phone] Bilirubin, total 0.6 0.1 - 1.2 mg/dL CERNER BJ Comment:Testing performed by : [facility], [address] [place] [phone] Protein, pl 6.3(L) 6.5 - 8.5 g/dL CERNER BJ Comment:Testing performed by : [facility], [address] [place] [phone] Albumin 3.9 3.5 - 5.0 g/dL MERLINE PERDOMO Comment:Testing performed by : [facility], [address] [place] [phone] Alk phos 123 40 - 130 Units/L [facility] PERDOMO Comment:Testing performed by : [facility], [address] [place] [phone] ALT 9 7 - 55 Units/L [facility] PERDOMO Comment:Testing performed by : [facility], [address] [place] [phone] AST 12 10 - 50 Units/L [facility] PERDOMO Comment:Testing performed by : [facility], [address] [place] [phone] Blood 10/19/2023 11:0 5 AM CDT 10/19/2023 11:09 AM CDT us Gautam Cope MD LAB BLOOD ORDERABLES Final Resul t [facility] One [facility] [place] [address] * (ABNORMAL) CBC with auto differential (10/19/2023 11:05 AM CDT) WBC 10.9(H) 3.8 - 9.8 K/cumm Comment:Testing performed by : [facility], [address] [place] [phone] Hgb 12.1(L) 13.8 - 17.2 g/dL [facility] PERDOMO Comment:Testing performed by : [facility], [address] [place] [phone] Hct 36.7(L) 40.7 - 50.3 % [facility] PER[facility]O Comment:Testing performed by : [facility], [address] [place] [phone] Plt 298 140 - 440 K/cumm [facility] PERDOMO Comment:Testing performed by : [address] [address] MPV 7.4 6.8 - 10.4 fL [facility] PERDOMO Comment:Testing performed by : [facility], [address] [place], [place] [phone] RBC 4.14(L) 4.50 - 5.70 M/cumm [facility] PERDOMO Comment:Testing performed by : [facility], [address] [place], [place] [phone] MCV 88.6 80.0 - 97.6 fL [facility] Comment:Testing performed by : [facility], [address] [place], [place] [phone] MCH 29.1 26.7 - 33.7 pg [facility] Comment:Testing performed by : [facility], [address] [place] [phone] MCHC 32.8 32.7 - 35.5 g/dL [facility] Comment:Testing performed by : [facility], [address] [place], [place] [phone] RDW CV 14.7(H) 11.8 - 14.6 % [facility] Comment:Testing performed by : [facility], [address] [place], [place] [phone] NRBC abs 0.00 0.00 - 0.01 K/cumm [facility] Comment:Testing performed by : [address] [phone] Blood 10/19/2023 11:0 5 AM CDT 10/19/2023 11:09 AM CDT us Gautam Cope MD LAB BLOOD ORDERABLES Final Resul t [facility] One [facility] Department [place] [address] * Lactate dehydrogenase (LD) (10/19/2023 11:05 AM CDT) Lactate dehydrogenase (LDH) 161 100 - 250 Units/L Comment:Testing performed by : [facility], [address] [place] [phone] Blood 10/19/2023 11:0 5 AM CDT 10/19/2023 11:09 AM CDT Gautam Cope MD LAB BLOOD ORDERABLES Final Resul t Performing Organization Address [facility] Co de Phone Number [facility] [place] [address] * (ABNORMAL) Hemoglobin A1c (07/27/2023 10:48 AM CDT) Hgb A1C 7.9(H) 4.0 - 5.6 % Estimated Average Glucose 180 mg/dL [facility] Comment: The ADA recommends reporting an estimated Average Glucose (eAG) with all Hemoglobin A1c results using the equation derived from a study of 507 normal and diabetic adults. ??Minority populations were underrepresented and children were not included. ?? (Diabetes Care 2020; 43(S1): S66-S76). ??The eAG is not equivalent to a fasting glucose. Blood 07/27/2023 10:4 8 AM CDT 07/27/2023 11:52 AM CDT Gautam Cope MD LAB BLOOD ORDERABLES Final Resul t Performing Organization Address [facility] de Phone Number [facility] Department [place] [address] documented in this encounter Visit Diagnoses Diagnosis Prostate cancer (HCC)- Primary Malignant neoplasm of prostate documented in this encounter Orders Appointment Requests Count Last Ordered Date Fi rst Ordered Date ONCBCN CLINIC APPOINTMENT REQUEST 2 024 07/27/2023 ONCBCN INJECTION APPOINTMENT REQUEST 1 12/2023 ONCBCN LAB APPOINTMENT 1 10/19/2023 documented in this encounter Care Teams Party Plan Demonstrator Relationship Specialty Start Date End Date Kraig Ching MD [address] [place] [address] PCP - General 07/10/16 Gautam Cope MD [address] [facility] [address] [place], [place] [id number] Medical Oncologist/Transition Manager Medical Oncology 08/18/18 Tramaine Roe MD [address] [facility] [address] [place] [address] Referring Physician Urology 08/18/18 Sukhwinder Uribe MD [address] [facility] [address] [place] [address] Consulting Physician Urology 08/18/18 Shay Guillermo MD [address] [facility] [address] [place] [address] Referring Physician Urology 08/18/18 Marsha Landis, RN Registered Nurse 11/17/18 documented as of this encounter
--- OUTSIDE RECORDS SUMMARY | 2024-03-31 04:53 | XMS_ITS | Encounter Summary ---
Author Organization [facility] Address [address] [place] [address] Phone Care Team Providers Care Sales Center Associate Name Role Phone Kraig Ching MD Primary Care Provider [phone] Gautam Cope MD Unavailable Tramaine Roe MD Unavailable [phone] Sukhwinder Uribe MD Unavailable [phone] Shay Guillermo MD Unavailable [phone] Marsha Landis RN Unavailable Unavailab le Encounter Details Date Type Department Care Team (Late st Contact Info) Description 04/27/2023 Documentation [facility] Oncology [address] [facility] 7th [place] [address] [place] [address] Ladi Bunch RN Social History Tobacco Use Types Packs/Day Years [...] containing alc ohol? 2-3 times a week 03/23/2023 Q2: How many drinks containi ng alcohol do you have on a typical day when you are drinking? 1 or 2 03/23/2023 Q3: How often do you have si x or more drinks on one occasion? 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 Wei's CT of the chest w/o contrast, which was scheduled for today, 04/27/23, it was noticed that the scan had been rescheduled by the patient on 06/15/23. L ROLLING MILL OPERATOR documented in this encounter Plan of Treatment [...] Chronic Care Management No change(03/23 1:47 PM METAL ROLLING MILL OPERATOR) No Ingrid Oden, SHEA Note: Problem: Chronic Pain Goals: 1. Minimize further functional decline 2. Maximize quality of life 3. Control pain Strategies: - Activity/exercise program recommendation - Conservative stepwise pain medicine strategy with multi-disciplinary approach - Recommend healthy lifestyle strategies and compensatory methods as needed documented as of this encounter Visit Diagnoses Not on filedocumented in this encounter Care Teams Sales Center Associate Relationship Specialty Start Date End Date Kraig Ching MD [address] [place] [address] PCP - General 07/10/16 Gautam Cope MD [address] [place] [address] Medical Oncologist/Gum Cook Medical Oncology 08/18/18 Tramaine Roe MD [address] [place] [address] Referring Physician Urology 08/18/18 Sukhwinder Uribe MD [address] [facility] [address] [place] [address] Consulting Physician Urology 08/18/18 Shay Guillermo MD [address] [facility] [address] [place] [address] Referring Physician Urology 08/18/18 Marsha Landis, RN Registered Nurse 11/17/18 documented as of this encounter
--- OUTSIDE RECORDS SUMMARY | 2024-03-31 04:53 | XMS_ITS | Encounter Summary ---
Author Organization [facility] Address [address] [place] [address] Phone Care Team Providers Care Vinyl Hanger Name Role Phone Kraig Ching MD Primary Care Provider [phone] Gautam Cope MD Unavailable Tramaine Roe MD Unavailable [phone] Sukhwinder Uribe MD Unavailable [phone] Shay Guillermo MD Unavailable [phone] Marsha Landis RN Unavailable Unavailab le Reason for Referral * Diagnostic Imaging (Routine) - Closed Specialty Diagnoses / Procedures Referred By Saleem narvaez Referred To Contact Diagnoses Combined forms of age-related cataract of right eye Procedures IOL Biometry - OD - Right Eye Higinio Connolly MD [address] [facility] [address] [place] [address] Phone: tel: fax: [facility] (All Locations) Referral ID Status Reason Start Date Expiration Date Visits Re quested Visits Authorized [id number] Closed 05/28/2023 06/26/2024 1 1 SPRING [employer] BRACE [employer] Reason for Visit * Reason Comments Post-op - Cataract * Diagnostic Imaging (Routine) - Closed Specialty Diagnoses / Procedures Referred By Saleem narvaez Referred To Contact Diagnoses Combined forms of age-related cataract of right eye Procedures IOL Biometry - OD - Right Eye Higinio Connolly MD [address] [facility] [address] [place] [address] Phone: tel: fax: [facility] (All Locations) Referral ID Status Reason Start Date Expiration Date Visits Re quested Visits Authorized [id number] Closed 05/28/2023 06/26/2024 1 1 Encounter Details Date Type Department Care Team (Late st Contact Info) Description 06/01/2023 8:00 AM [employer] Office Visit [facility] Ophthalmology [address] [place] [address] Higinio Connolly MD [address] [facility] [address] [place], [place] [id number] Pseudophakia of left eye (Primary Dx); Combined forms of age-related cataract of right eye Social History Tobacco Use [...] on file 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 Continue Cosopt OU BID. Scheduled for phaco/IOL right eye (OD) on 06/09/2023. Pre-op IOL calculations reevaluated to determine intraocular lens (IOL) power OD. Will plan to use CNA0T0 with plano target OD. [employer] [employer] documented in this encounter Plan of Treatment [...] Chronic Care Management No change(03/23 1:47 PM MAINSPRING FORMER BRACE END) No Ingrid Oden RN Note: Problem: Chronic Pain Goals: 1. Minimize further functional decline 2. Maximize quality of life 3. Control pain Strategies: - Activity/exercise program recommendation - Conservative stepwise pain medicine strategy with multi-disciplinary approach - Recommend healthy lifestyle strategies and compensatory methods as needed documented as of this encounter Procedures Procedure Name Priority Date/Time Associated Diagnosis Comments IOL BIOMETRY - OD - RIGHT EYE Routine 06/01/2023 9:26 AM [employer]INS[employer]ING [employer] END Combined forms of age-related cataract of right eye documented in this encounter Results * IOL Biometry - OD - Right Eye (06/01/2023 9:26 AM [employer]) Anatomical Region Laterality Modality Head Ophthalmic Axial Measurements Narrative 06/01/2023 9:26 AM [employer] Lens style: CNA0T0. Lens power: +19.5 D. Target refraction: -0.25. Formula used: Mian II. us Higinio Connolly MD OPHTH ULTRASOUND Final Resu lt documented in this encounter Visit Diagnoses Diagnosis Pseudophakia of left eye- Primary Lens replaced by other means Combined forms of age-related cataract of right eye documented in this encounter Eye Exam Visual Acuity (Snellen - Linear) Right eye Left eye Dist sc 20/40 20/30 Dist ph sc 20/30 20/25 -2 Tonometry (Applanation, 9:20 AM) Right eye Left eye Pressure 27 23 Slit Lamp Exam Right eye Left eye Lids/Lashes Normal Conjunctiva/Sclera Quiet; residu al temporal limbal PJ Cornea Clear Anterior Chamber Deep and quiet Iris Round and reacti ve Lens Posterior chambe r intraocular lens, no Posterior capsular opacification Care Teams Vinyl Hanger Relationship Specialty Start Date End Date Kraig Ching MD [address] [facility] [address] [place] [address] PCP - General 07/10/16 Gautam Cope MD [address] [facility] [address] [place] [address] Medical Oncologist/Building Code Inspector Medical Oncology 08/18/18 Tramaine Roe MD [address] [facility] [address] [place] [address] Referring Physician Urology 08/18/18 Sukhwinder Uribe MD [address] [facility] [address] [place] [address] Consulting Physician Urology 08/18/18 Shay Guillermo MD [address] [facility] [address] [place] [address] Referring Physician Urology 08/18/18 Marsha Landis, RN Registered Nurse 11/17/18 documented as of this encounter
--- OUTSIDE RECORDS SUMMARY | 2024-03-31 04:53 | XMS_ITS | Encounter Summary ---
Author Organization [facility] Healthcare Address [address] [place] [address] Care Team Providers Care Registered Massage Therapist Name Role Phone Kraig Ching MD Primary Care Provider [phone] Gautam Cope MD Unavailable Tramaine Roe MD Unavailable [phone] Sukhwinder Uribe MD Unavailable [phone] Shay Guillermo MD Unavailable [phone] Marsha Landis RN Unavailable Unavailab le Encounter Details Date Type Department Care Team (Latest Contact Info) Description 07/27/2023 9:08 AM CDT - 07/27/2023 11:59 PM CDT Hospital Encounter [facility] [address] [place] [address] Prostate cancer (HCC) Discharge Disposition: Discharge to home or self [...] on file 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 Take 4 tablets (1,000 mg total) by mouth daily Take with a glass of water, on an empty stomach at least 1 hr before or 2 hrs after food. 120 tablet 6 07/12/2023 4 Accu-Chek Fastclix Lancet Drum misc USE DIRECTED 204 each 05/30/2023 4 Accu-Chek Guide test strips strip USE DIRECTED TWICE DAILY 200 strip 05/30/2023 4 carvediloL (COREG) 25 mg tabletIndication s:CKD (chronic kidney disease) stage 3, GFR 30-59 ml/min ([facility]) Take 1 tablet (25 mg [...] disease, without long-term current use of insulin ([facility]) TAKE 1 TABLET BY MOUTH DAILY 30 tablet 11 12/08/2022 4 ketorolac (ACULAR) 0.5 % ophthalmic solution Instill one drop into surgical eye three time daily starting two days pre op 5 mL 1 12/08/2022 4 lisinopriL (PRINIVIL,ZESTRI L) 20 mg tablet Take 1.5 tablets (30 mg total) by mouth daily 135 tablet 3 07/22/2022 4 oxyCODONE (ROXICODONE) 5 mg immediate release [...] after surgery 5 mL 1 12/08/2022 4 predniSONE (DELTASONE) 5 mg tablet Take 1 tablet (5 mg) by mouth two times a day 60 tablet 9 10/15/2022 4 documented as of this encounter Discharge [...] change(09/06 4:37 PM CDT) No Ilene Fragoso, SHEA Note: Problem: Knowledge deficit related to [...] Chronic Care Management No change(03/23 1:47 PM TACKING STITCH REMOVER) No Ingrid Oden, SHEA Note: Problem: Chronic Pain Goals: 1. Minimize further functional decline 2. Maximize quality of life 3. Control pain Strategies: - Activity/exercise program recommendation - Conservative stepwise pain medicine strategy with multi-disciplinary approach - Recommend healthy lifestyle strategies and compensatory methods as needed documented as of this encounter Procedures Procedure Name Priority Date/Time Associated Diagnosis Comments HEMOGLOBIN A1C Routine 07/27/2023 10:48 AM CDT Prostate cancer (HCC) EGFR STAT 07/27/2023 10:22 AM CDT Prostate cancer (HCC) DIFFERENTIAL AUTO Routine 07/27/2023 10: 22 AM CDT Prostate cancer (HCC) CBC WITH AUTO DIFFERENTIAL Routine 07/27/2023 10:22 AM CDT Prostate cancer (HCC) PSA DIAGNOSTIC Routine 07/27/2023 10:22 AM CDT Prostate cancer (HCC) LACTATE DEHYDROGENASE Routine 07/27/2023 10:22 AM CDT Prostate cancer (HCC) COMPREHENSIVE METABOLIC PANEL STAT 07/27/2023 10:22 AM CDT Prostate cancer (HCC) documented in this encounter Results * (ABNORMAL) Hemoglobin A1c (07/27/2023 10:48 AM CDT) Hgb A1C 7.9(H) 4.0 - 5.6 % Estimated Average Glucose 180 mg/dL [facility] Comment: The ADA recommends reporting an estimated Average Glucose (eAG) with all Hemoglobin A1c results using the equation derived from a study of 507 normal and diabetic adults. ??Minority populations were underrepresented and children were not included. ?? (Diabetes Care 2020; 43(S1): S66-S76). ??The eAG is not equivalent to a fasting glucose. Blood 07/27/2023 10:4 8 AM CDT 07/27/2023 11:52 AM CDT us Gautam Cope MD LAB BLOOD ORDERABLES Final Resul t Performing Organization Address [facility] Co de Phone Number [facility] [place] [address] * (ABNORMAL) eGFR (07/27/2023 10:22 AM CDT) eGFR 29(L) >=60 mL/min/1. 73 m2 [...] was last reviewed 2021. Testing performed by: [facility], [address] [place] [phone] Blood 07/27/2023 10:2 2 AM CDT 07/27/2023 10:34 AM CDT us Gautam Cope MD LAB BLOOD ORDERABLES Final Resul t Performing Organization Address [facility] Co de Phone Number [facility] [place] [address] * (ABNORMAL) Differential, auto (07/27/2023 10:22 AM CDT) Neutrophil abs 10.4(H) 1.5 - 6.6 K/cumm Comment:Testing performed by : [facility], [address] [place] [phone] Lymphocyte abs 1.0(L) 1.2 - 3.3 K/cumm [facility] Comment:Testing performed by : [facility], [address] [place] [phone] Monocyte abs 0.9 0.2 - 1.2 K/cumm [facility] Comment:Testing performed by : [facility], [address] [place] [phone] Eosinophil abs 0.1 0.0 - 0.5 K/cumm [facility] Comment:Testing performed by : [facility], [address] [place] [phone] Basophil abs 0.1 0.0 - 0.2 K/cumm [facility] Comment:Testing performed by : [facility], [address] [place] [phone] Neutrophil pct 84.1 % [facility] Comment: Interpretive Data Percent cell count reference ranges are not reported, since discordance with absolute values may lead to misinterpretation of CBC data. Current Interpretive Data was last revised on 2017. Testing performed by: [facility], [address] [place] [phone] Lymphocyte pct 7.7 % [facility] Comment: Interpretive Data Percent cell count reference ranges are not reported, since discordance with absolute values may lead to misinterpretation of CBC data. Current Interpretive Data was last revised on 2017. Testing performed by: [facility], [address] [place] [phone] Monocyte pct 6.9 % [facility] Comment:Testing performed by : [facility], [address] [place] [phone] Eosinophil pct 0.7 % [facility] Comment:Testing performed by : [facility], [address] [place] [phone] Basophil pct 0.6 % [facility] Comment:Testing performed by : [facility], [address] [place] [phone] Blood 07/27/2023 10:2 2 AM CDT 07/27/2023 10:34 AM CDT us Gautam Cope MD LAB BLOOD ORDERABLES Final Resul t Performing Organization Address [facility] Co de Phone Number [facility] [place] [address] * Lactate dehydrogenase (LD) (07/27/2023 10:22 AM CDT) Pathologist [facility] Lactate dehydrogenase (LDH) 149 100 - 250 Units/L Comment:Testing performed by : [facility], [address] [place] [phone] Blood 07/27/2023 10:2 2 AM CDT 07/27/2023 10:34 AM CDT us Gautam Cope MD LAB BLOOD ORDERABLES Final Resul t Performing Organization Address [facility] de Phone Number [facility] [place] [address] * (ABNORMAL) CBC with auto differential (07/27/2023 10:22 AM CDT) Pathologist [facility] WBC 12.4(H) 3.8 - 9.8 K/cumm Comment:Testing performed by : [facility], [address] [place] [phone] Hgb 12.6(L) 13.8 - 17.2 g/dL [facility] Comment:Testing performed by : [facility], [address] [place] [phone] Hct 39.9(L) 40.7 - 50.3 % [facility] Comment:Testing performed by : [facility], [address] [place] [phone] Plt 347 140 - 440 K/cumm [facility] Comment:Testing performed by : [facility], [address] [place] [phone] MPV 7.3 6.8 - 10.4 fL [facility] Comment:Testing performed by : [facility], [address] [place], [place] [phone] RBC 4.48(L) 4.50 - 5.70 M/cumm [facility] Comment:Testing performed by : [facility], [address] [place] [phone] MCV 88.9 80.0 - 97.6 fL [facility] Comment:Testing performed by : [facility], [address] [place] [phone] MCH 28.2 26.7 - 33.7 pg [facility] Comment:Testing performed by : [facility], [address] [place] [phone] MCHC 31.7(L) 32.7 - 35.5 g/dL [facility] Comment:Testing performed by : [facility], [address] [place] [phone] RDW CV 14.3 11.8 - 14.6 % [facility] Comment:Testing performed by : [facility], [address] [place] [phone] NRBC abs 0.00 0.00 - 0.01 K/cumm [facility] Comment:Testing performed by : [facility], [address] [place] [phone] Blood 07/27/2023 10:2 2 AM CDT 07/27/2023 10:34 AM CDT us Gautam Cope MD LAB BLOOD ORDERABLES Final Resul t [facility] [place] [address] * (ABNORMAL) Comprehensive metabolic panel (07/27/2023 10:22 AM CDT) Sodium 142 135 - 145 mmol/L Comment:Testing performed by : [facility], [address] [place] [phone] Potassium, pl 4.2 3.3 - 4.9 mmol/L [facility] Comment:Testing performed by : [facility], [address] [place] [phone] Chloride 104 97 - 110 mmol/L [facility] Comment:Testing performed by : [facility], [address] [place] [phone] CO2 28 22 - 32 mmol/L [facility] Comment:Testing performed by : [facility], [address] [place] [phone] Anion gap 10 2 - 15 mmol/L [facility] Comment:Testing performed by : [facility], [address] [place] [phone] BUN 40(H) 6 - 25 mg/dL [facility] Comment:Testing performed by : [facility], [address] [place] [phone] Creatinine 2.21(H) 0.80 - 1.30 mg/dL [facility] Comment:Testing performed by : [facility], [address] [place] [phone] Glucose 154 70 - 199 mg/dL [facility] Comment: [...] was last revised 2022. Testing performed by: [facility], [address] [place] [phone] Calcium 9.1 8.5 - 10.3 mg/dL [facility] Comment:Testing performed by : [facility], [address] [place] [phone] Bilirubin, total 0.4 0.1 - 1.2 mg/dL [facility] Comment:Testing performed by : [facility], [address] [place] [phone] Protein, pl 6.5 6.5 - 8.5 g/dL [facility] Comment:Testing performed by : [facility], [facility] [phone] Albumin 3.9 3.5 - 5.0 g/dL [facility] Comment:Testing performed by : [facility], [address] [place] [phone] Alk phos 129 40 - 130 Units/L [facility] Comment:Testing performed by : [facility], [address] [place] [phone] ALT 9 7 - 55 Units/L [facility] Comment:Testing performed by : [facility], [address] [place] [phone] AST 11 10 - 50 Units/L [facility] Comment:Testing performed by : [facility], [address] [place] [phone] Blood 07/27/2023 10:2 2 AM CDT 07/27/2023 10:34 AM CDT us Gautam Cope MD LAB BLOOD ORDERABLES Final Resul t [facility] [place] [address] * PSA diagnostic (07/27/2023 10:22 AM CDT) PSA-Total <0.02 <=6.20 ng/mL Comment: [...] Current interpretive data last revised 21. Blood 07/27/2023 10:2 2 AM CDT 07/27/2023 11:52 AM CDT us Gautam Cope MD LAB BLOOD ORDERABLES Final Resul t Performing Organization Address City/State/[facility] Co de Phone Number [facility] [place] [address] documented in this encounter Visit Diagnoses Diagnosis Prostate cancer (HCC) Malignant neoplasm of prostate documented in this encounter Care Teams Registered Massage Therapist Relationship Specialty Start Date End Date Kraig Ching MD [address] [place] [address] PCP - General 07/10/16 Gautam Cope MD [address] [facility] [place] [address] Medical Oncologist/Panel Builder Medical Oncology 08/18/18 Tramaine Roe MD [address] [place] [address] Referring Physician Urology 08/18/18 Sukhwinder Uribe MD [address] [place] [address] Consulting Physician Urology 08/18/18 Shay Guillermo MD [address] [place] [address] Referring Physician Urology 08/18/18 Marsha Landis, RN Registered Nurse 11/17/18 documented as of this encounter
--- OUTSIDE RECORDS SUMMARY | 2024-03-31 04:53 | XMS_ITS | Encounter Summary ---
Author Organization [facility] Healthcare Address [address] [place] [address] Care Team Providers Care Marketing Operations Intern Name Role Phone Kraig Ching MD Primary Care Provider [phone] Gautam Cope MD Unavailable Tramaine Roe MD Unavailable [phone] Sukhwinder Uribe MD Unavailable [phone] Shay Guillermo MD Unavailable [phone] Marsha Landis RN Unavailable Unavailab le Encounter Details Date Type Department Care Team (Late st Contact Info) Description 04/26/2023 Telephone [facility] [address] [place] [address] Kraig Ching MD [address] [facility] [address] [place] [address] Social History Tobacco Use Types [...] on file 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 Minimize further functional decline 2. Maximize quality of life 3. Control pain Strategies: - Activity/exercise program recommendation - Conservative stepwise pain medicine strategy with multi-disciplinary approach - Recommend healthy lifestyle strategies and compensatory methods as needed documented as of this encounter Visit Diagnoses Not on filedocumented in this encounter Care Teams Marketing Operations Intern Relationship Specialty Start Date End Date Kraig Ching MD [address] [facility] [facility] [address] [place] [address] PCP - General 07/10/16 Gautam Cope MD [address] [place] [address] Medical Oncologist/Perfumer Medical Oncology 08/18/18 Tramaine Roe MD [address] [place] [address] Referring Physician Urology 08/18/18 Sukhwinder Uribe MD [address] [place] [address] Consulting Physician Urology 08/18/18 Shay Guillermo MD [address] [facility] [address] [place] [address] Referring Physician Urology 08/18/18 Marsha Landis, RN Registered Nurse 11/17/18 documented as of this encounter
--- OUTSIDE RECORDS SUMMARY | 2024-03-31 04:53 | XMS_ITS | Encounter Summary ---
Author Organization [facility] Address [address] [place] [address] Phone Care Team Providers Care Manager Service Desk Name Role Phone Kraig Ching MD Primary Care Provider Gautam Cope MD Unavailable Tramaine Roe MD Unavailable [phone] Sukhwinder Uribe MD Unavailable Shay Guillermo MD Unavailable Marsha Landis RN Unavailable Unavailab le Encounter Details Date Type Department Care Team (Late st Contact Info) Description 07/12/[address] 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 Minimize further functional decline 2. Maximize quality of life 3. Control pain Strategies: - Activity/exercise program recommendation - Conservative stepwise pain medicine strategy with multi-disciplinary approach - Recommend healthy lifestyle strategies and compensatory methods as needed documented as of this encounter Visit Diagnoses Not on filedocumented in this encounter Care Teams Manager Service Desk Relationship Specialty Start Date End Date Kraig Ching MD [address] [place] [address] PCP - General 07/10/16 Gautam Cope MD [address] [facility] [address] [place] [address] Medical Oncologist/Air Defense Artillery Senior Sergeant Medical Oncology 08/18/18 Tramaine Roe MD [address] [place] [address] Referring Physician Urology 08/18/18 Sukhwinder Uribe MD [address] [facility] [address] [place] [address] Consulting Physician Urology 08/18/18 Shay Guillermo MD [address] [facility] [address] [place] [address] Referring Physician Urology 08/18/18 Marsha Landis, RN Registered Nurse 11/17/18 documented as of this encounter
--- OUTSIDE RECORDS SUMMARY | 2024-03-31 04:53 | XMS_ITS | Encounter Summary ---
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] Procedures FL XCAPSL CTRC RMVL INSJ IO LENS PROSTH W/O ECP EXTRACTION CATARACT - PHACOEMULSIFICATION AND LENS IMPLANT Referral ID Status Reason Start Date Expiration Date Visits Re quested Visits Authorized [id number] 1 1 Encounter Details Date Type Department Care Team (Late st Contact Info) Description 05/19/2023 9:01 AM HEAD OF TALENT MANAGEMENT Anesthesia Event [facility] at [facility] [address] [place] [address] Beau Minaya MD [address] [place], [place] [id number] Ladi Vásquez NP [address] [facility] [id number] [place] [address] Anesthesia Record Procedure Summary Procedure Name Responsible Anesthesiologist Anesthesia Start Time Anesthesia Stop Time EXTRACTION CATARACT - PHACOEMULSIFICATION AND LENS IMPLANT (Left: Eye) Beau Minaya MD 05/19/23 0901 05/19/23 0931 Events Date Time Event Comment 05/19/2023 0841 0901 An Start 0901 Start Supplemental O2 0901 An Induction The patient was reevaluated immediately before moderate or deep sedation use and before anesthesia induction. 0901 Quick Note Retrobulbar blo ck done by Dr Connolly 0906 In Room 0906 An Start Data 0908 Anesthesia Ready 0914 Proc Start 0914 Incision Start 0926 an stop data 0928 Proc Fin 0929 Out of Room 0931 An Stop 0931 Handoff to RN I completed my handoff to the receiving nurse during which we: 1. Patient identified 2. Responsible provider identified 3. Pertinent medical history reviewed 4. Procedure type and surgical course discussed 5. Intraoperative anesthetic management and any significant issues discussed 6. Expectations and concerns for postop period discussed 7. Questions solicited from receiving nurse 8. Patient disposition at the time of handoff: No value filed. Meds Name Total lidocaine (cardiac) syringe 2 % 40 mg propofol 40 mg * Agents Name O2 N2O Air * Blood No blood administrations on file. Lines, Drains, and Airways Type Details Placement Removal RETIRED Wound 01/17/19; Puncture; Bilateral; Back; 03/14/24 (Retired LDA, Removed/Completed by [employer] with LDA Utility); 1213 (Retired LDA, Removed/Completed by [employer] with LDA Utility) 01/17/19 0000 by Jayla Gibson RN 03/14/24 1213 by Discharge Provider, Automatic RETIRED Wound 03/23/23; 1538; No; Puncture; Mid-line; Buttocks; 03/14/24 (Retired LDA, Removed/Completed by [employer] with LDA Utility); 1213 (Retired LDA, Removed/Completed by [employer] with LDA Utility) 03/23/23 1538 by Kiran Wilson RN 03/14/24 1213 by Discharge Provider, Automatic Peripheral IV Placement Date: 05/19/23; Placement Time: 828; Catheter Size: 22 G; Orientation: Anterior, Proximal, Right; Location: Forearm; Site Prep: Chlorhexidine; Insertion Attempts: 1; Patient Tolerance: Tolerated well; Removal Date: 05/19/23; Removal Time: 95005/19/23 0829 by Norma Jorgensen RN 05/19/23 0951 by Saundra Ramirez RN RETIRED Surgical Site 05/19/23; 0903; Le ft; Eye; 03/14/24 (Retired LDA, Removed/Completed by [facility] with LDA Utility); 1213 (Retired LDA, Removed/Completed by [facility] with LDA Utility) 05/19/23 0903 by Tom Vanessa RN 03/14/24 1213 by Discharge Provider, Automatic documented in this encounter Social History Tobacco Use Types Packs/Day Years [...] on file 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 HEAD OF TALENT MANAGEMENT Gender Identity Not on file Sexual Orientation Not on file documented as of this encounter OR Notes * Anesthesia Postprocedure Evaluation - Beau Minaya MD - 05/19/2023 9:44 AM CST Patient: David Wei Procedure Summary Date: 05/19/23 Room / Location: [facility] OPERATING ROOM [facility] Operating Room Anesthesia Start: 900 Anesthesia Stop: 930 Procedure: EXTRACTION CATARACT - PHACOEMULSIFICATION AND LENS IMPLANT (Left: Eye) Diagnosis: Combined forms of age-related cataract of both eyes (Combined forms of age-related cataract of both eyes [H25.813]) Providers: Higinio Connolly MD Responsible Provider: Beau Minaya MD Anesthesia Type: MAC ASA Status: 3 Anesthesia Type: MAC Last vitals BP 160/85 Pulse 62 Temp 36.2 ??C (97.2 ??F) (Temporal) Resp 28 SpO2 98% Anesthesia Post Evaluation Patient location during evaluation: PACU Patient participation: complete - patient participated Level of consciousness: fully awake Pain management: satisfactory to patient Airway patency: patent Cardiovascular status: hemodynamically stable Respiratory status: room air Hydration status: acceptable Pt is: normothermic Nausea/Vomiting status: none No notable events documented. OF TALENT MANAGEMENT * Anesthesia Preprocedure Evaluation - Beau Minaya MD - 05/14/2023 2:03 PM CST Images from the original note were not included. [facility] for Preoperative Assessment and Planning Preoperative Evaluation Record Evaluation type/location: TPAP from [facility] Planned procedure site: [facility] OR Date: 05/14/23 NOTE: This note represents a preoperative evaluation initiated via telephone interview. NO PHYSICALEXAM was performed at the time of initial assessment. A physical exam may be added to this note anddocumented below. Anesthesia Evaluation David Wei is a 82 y.o. male Procedure(s): EXTRACTION CATARACT - PHACOEMULSIFICATION AND LENS IMPLANT Pre-Op Diagnosis Codes: * Combined forms of age-related cataract of both eyes [H25.813] HISTORY HPI 82 year old male being evaluated for extraction cataract with lens implant for decreased vision with PMH HTN, HLD, CKD, DM with insulin, COPD, Metastatic Prostate CA (1998), Chronic pain with PRN opioid use Past Medical History Information obtained from: patient and chart. Neurological Pertinent negatives: seizures; neuromuscular disease; CVA/stroke; TIA; CEA; ICA stenosis; dementia/mild cognitive impairment and carotid artery stent Cardiovascular + Hypertension Hypertension year diagnosed: 1999. Typical systolic BP - 135 Typical diastolic BP - 80 + Hyperlipidemia (Treated with statin) + Current valvular disease (NATE= 1.5 cm2 per TTE 02/2018) - - mild; MR - mild; + Atrial fibrillation/flutter (noted inchart, patient unsure of hx) - + Other arrhythmia - PVCs. Pertinent negatives: CAD ; KS ; CABG ; valve replacement; pacemaker/ICD; PVD; DVT/PE; negative for CHF; drug-eluting stent(s); bare metal stent(s) and coronary angioplasty Comments: Dr. Albert 03/18/2023 and TTE completed 04/29/2023 and also completed event monitor added to diagnostics Respiratory + COPD (has not used albuterol inhaler in months) Dyspnea frequency: 2 days/week or less. Rescue inhaler use: 2 days/week or less. Pertinent negatives: asthma; pulmonary hypertension; no O2 use outside the hospital; no history of oral steriod use; no prior intubation for respiratory failure and non-smoker Hepatic / Heme + History of anemia (H/H 12.5/38.3 ( 04/2023)) Pertinent negatives: liver disease; history of thrombocytopenia and history of Suki positive Gastrointestinal Pertinent negatives: GERD and hiatal hernia Renal / + Renal disease (cr 2.26 cr cl 26.4 ( 04/2023)) - CKD Pertinent negatives: dialysis and nephrolithiasis Comments: Followed by enroller, Dr Guerrero Musculoskeletal/Pain + Chronic pain - back pain. + Chronic opioid use (PRN oxycodone) - less than daily. Pertinent negatives: previous treatment for opioid use disorder Endocrine / Other + Diabetes mellitus - Diabetes type 2. Diagnosed: 2000. Diabetic complications: nephropathy. Outpatient insulin use: current. Pt reported low glucose range is 90. Pt reported high glucose range is 200. Pt reported HgA1c: 7.9%. Pt reported HgA1c date: 08/18/2022. + Obesity (BMI >30) (BMI 30.24) + Cancer history- s/p radiation and metastatic cancer. Cancer type: Prostate CA dxd 1998 s/p prosatectomy and radiation (last 1999) with mets to L2 on oral abiraterone currently. + Pancreatitis (h/o Pancreatitis 1998) Pertinent negatives: thyroid disease; rheumatological disease and transplanted organ Functional Capacity Functional capacity: <4 METs Comments: . Pt able to walk from garage into CAM with walker without stopping to rest Review of Systems + easy bruising (Denies excessive bleeding) + chronic pain + vision loss (+Reading glasses; Decreased vision d/t cataract-- Etiology for surgery) Pertinent negatives: productive cough; wheezing; SOB; recent cold/flu; chest pain; palpitations; orthopnea; pedal edema; PND; previous transfusion; melena/hematochezia; bleeding problems; syncope; dizziness; muscle weakness and numbness/tingling PAT Summary and Plans Preoperative assessment status: complete pending laboratory results. Additional comments: David Wei is a 82 y.o. male who is being evaluated prior to undergoinga low cardiac risk surgery. Revised Cardiac Risk Index factors are (insulin therapy for diabetes and preoperative creatinine > 2 mg/dL) for a total RCRI of 2 out of 6. Functional capacity is <4METs This assessment was performed via telephone. Therefore the physical exam has been deferred to the day of surgery team. The patient was provided with preoperative instructions for their medications. Patient instructions were provided by telephone and electronically sent via [employer]. Patient verbalized understanding of instructions. Blood bank needs for day of procedure: No type and screen needed Pending labs/tests include: POC Glucose The patient is on aspirin therapy for primary prevention. The bleeding risk for the planned procedure is insignificant and therefore aspirin can be continued throughout the periprocedural period. Please call the CPAP chart room clinician ([phone]) with any questions.Plan in place. Patient was cancelled 02.17.2023 at [facility] [place] [place] for cataract surgery d/t telemetry shows frequent PVCs and occasional ventricular bigeminy. 12 lead EKG obtained and shows atrial fibrillation (known hx) with frequent PVCs. He also has a harsh systolic murmur on physical exam, was instructed to see clinical staff anesthesiologist and be worked up to d/t concern for structural/electrical pathology, Saw Dr. Stiels and TTE with event monitor- TTE relatively unchanged from 2018 and increased carvedilol d/t a few episode NSVT noted on event monitor Sent case and workup to Adolfo POD leader to see ok to proceed at [facility] [place] [place] awaiting on response. Preoperative evaluation performed by Ladi Vásquez NP on 05/14/23 at 2:09 PM . Follow up note The patient is currently scheduled for their procedure at [facility]. The case was discussed amongst myself, CPAP attending Dr. Church, and [facility] Anesthesiology Chief Dr. Ward due to cancellation 02/17/2023 for telemetry shows frequent PVCs and occasional ventricularbigeminy. 12 lead EKG obtained and shows atrial fibrillation (known hx) with frequent PVCs. He alsohas a harsh systolic murmur on physical exam. Stabber workup completed After discussion, it is felt that the patient is an appropriate candidate for the procedure at [facility]. TPAP assessment complete Follow-up completed by: Ladi Vásquez NP on 05/17/23 at 7:05 AM Discussed with: Samra Church MD Patient Active Problem List Diagnosis Date Noted Essential hypertension 03/08/2023 Type 2 diabetes mellitus with stage 3a chronic kidney disease, with long-term current use of insulin ([facility]) 03/08/2023 Cataract, left 03/08/2023 Combined forms of age-related cataract of both eyes 10/30/2022 Moderate stage chronic narrow angle glaucoma 10/30/2022 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 10/30/2022 CKD (chronic kidney disease) 03/08/2022 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 chronic kidney disease (HCC) 10/15/2021 Gastroesophageal reflux disease 04/08/2021 Secondary hyperparathyroidism of renal origin ([facility]) 09/15/2019 Spinal stenosis of lumbar region with neurogenic claudication 09/09/2018 Sciatica, left side 09/09/2018 Chronic bilateral low back pain with bilateral sciatica 09/09/2018 Prostate cancer ([facility]) 09/06/2018 SBO (small bowel obstruction) ([facility]/H[facility]) ([facility]) 07/15/2018 Chronic diastolic heart failure ([facility]) 01/25/2018 Shortness of breath 01/25/2018 Hypertensive kidney disease with chronic kidney disease stage III ([facility]) 11/25/2017 Duodenal ulcer 11/25/2017 PAF (paroxysmal atrial fibrillation) ([facility]) ([facility]) 10/22/2017 COPD (chronic obstructive pulmonary disease) ([facility]) 10/22/2017 Chronic kidney disease, stage 3b ([facility]) 10/22/2017 Allergy to statin medication 08/30/2017 Tobacco use 08/30/2017 Hyperlipidemia associated with type 2 diabetes mellitus ([facility]) 01/15/2017 Inflamed seborrheic keratosis 10/03/2014 Actinic keratosis 10/03/2014 Benign neoplastic disease 10/03/2014 Angioma 10/03/2014 Vitamin D deficiency 12/15/2013 Hypertension 01/12/2012 Type 2 diabetes mellitus without complication, with long-term current use of insulin ([facility]) ([facility]) 01/12/2012 Hyperlipidemia 01/12/2012 Past Medical History: Diagnosis Date Anemia Chronic pain disorder Diabetes ([facility]) Diverticulitis Esophageal stricture GERD (gastroesophageal reflux disease) History of pancreatitis 1998 History of prostate cancer Prostate CA dxd 1998 s/p prosatectomy and radiation (last 1999) with mets to L2 HTN (hypertension) Dxd ~1999 Hyperlipidemia Treated with statin Low back pain Multiple gastric ulcers Renal disease 40% functioning Past Surgical History: Procedure Laterality Date ABDOMINAL SURGERY 1998 Extensive abdominal surgery with Pancreatic abcess/pancreatitis CHOLECYSTECTOMY 1998 COLONOSCOPY Multiple-- Last 2012 PROSTATECTOMY 1999 UPPER GASTROINTESTINAL ENDOSCOPY 12/2017 Allergies Allergen Reactions Atorvastatin Muscle pain Med List Status: Nurse Complete Set By: Rafaela Roe RN at 04/30/2023 12:16 PM Taking? Last Dose Start Date End Date Provider abiraterone (ZYTIGA) 250 mg tablet 04/29/2023 03/12/23 -- Gautam Cope MD Take 4 tablets (1,000 mg) by mouth daily. Do not eat anything for at least 2 hours before and for at least 1 hour after Patient taking differently: Take 4 tablets (1,000 mg total) by mouth nightly Accu-Chek Fastclix Lancet Drum misc 04/30/2023 11/17/22 -- Kraig Ching MD USE DIRECTED albuterol HFA (PROVENTIL HFA,VENTOLIN HFA,PROAIR HFA) 90 mcg/actuation inhaler 02/22/2023 06/21/22 -- Coleen Salas MD aspirin 81 mg enteric coated tablet 04/30/2023 -- -- Coleen Salas MD blood glucose diagnostic (Accu-Chek Guide test strips) strip 04/30/2023 11/09/22 -- Kraig Ching MD USE DIRECTED TO TEST BLOOD SUGAR TWICE DAILY. carvediloL (COREG) 25 mg tablet 04/30/2023 04/20/23 -- Alexandro Albert MD Take 1 tablet (25 mg total) by mouth 2 (two) times a day with meals Patient taking differently: Take 1 tablet (25 mg total) by mouth 2 (two) times a day with meals chlorthalidone 25 mg tablet 04/30/2023 10/02/22 -- Lin Guerrero MD Take 1 tablet (25 mg total) by mouth daily Patient taking differently: Take 1 tablet (25 mg total) by mouth every morning dorzolamide-timoloL (COSOPT) 22.3-6.8 mg/mL ophthalmic solution 04/30/2023 12/08/22 -- Higinio Connolly MD Administer 1 drop into both eyes 2 (two) times a day Patient taking differently: Administer 1 drop into both eyes 2 (two) times a day insulin glargine (LANTUS) 100 unit/mL (3 mL) pen for injection 04/29/2023 03/08/23 -- JohnL. Ching MD ADMINISTER 28 UNITS UNDER THE SKIN DAILY Patient taking differently: Inject 28 Units under the skin nightly ADMINISTER 28 UNITS UNDER THE SKIN DAILY Januvia 25 mg tablet 04/29/2023 12/08/22 -- Kraig Ching MD TAKE 1 TABLET BY MOUTH DAILY Patient taking differently: Take 1 tablet (25 mg total) by mouth nightly ketorolac (ACULAR) 0.5 % ophthalmic solution -- 12/08/22 -- Higinio Connolly MD Instill one drop into surgical eye three time daily starting two days pre op Patient taking differently: Administer 1 drop into the left eye 3 (three) times a day Instill one drop into surgical eye three time daily starting two days pre op lisinopriL (PRINIVIL,ZESTRIL) 20 mg tablet 04/30/2023 07/22/22 07/22/23 Lin Guerrero MD Take 1.5 tablets (30 mg total) by mouth daily Patient taking differently: Take 1.5 tablets (30 mg total) by mouth every morning moxifloxacin (VIGAMOX) 0.5 % ophthalmic solution -- 12/08/22 -- Higinio Connolly MD Instill 1 drop into surgical eye three times daily starting two days before surgery Patient taking differently: Administer 1 drop into the left eye 3 (three) times a day Instill 1 drop into surgical eye three times daily starting two days before surgery NovoLOG 100 unit/mL (3 mL) pen for injection -- 05/05/23 -- Kraig Ching MD ADMINISTER 8 UNITS UNDER THE SKIN THREE TIMES DAILY BEFORE MEALS oxyCODONE (ROXICODONE) 5 mg immediate release tablet Past Week 04/26/23 -- Kraig Ching MD Take 1 tablet (5 mg total) by mouth every 6 (six) hours as needed for pain Notes: Dx; prostate cancer C[address] (PROTONIX) 40 mg EC tablet 04/30/2023 12/05/22 -- Kraig Ching MD TAKE 1 TABLET(40 MG) BY MOUTH DAILY Patient taking differently: Take 1 tablet (40 mg total) by mouth every morning pen needle, diabetic (BD Ultra-Fine Short Pen Needle) 31 gauge x 5/16 needle 04/29/2023 12/24/22 --Kraig Ching MD USE TO INJECT INSULIN 4 TIMES EVERY DAY DIRECTED pravastatin (PRAVACHOL) 20 mg tablet 04/29/2023 09/14/22 -- Kraig Ching MD TAKE 1 TABLET BY MOUTH EVERY DAY Patient taking differently: Take 1 tablet (20 mg total) by mouth nightly prednisoLONE acetate (PRED FORTE) 1 % ophthalmic suspension -- 12/08/22 -- Higinio Connolly MD Instill 1 drop into surgical eye three times daily starting after surgery Patient taking differently: Administer 1 drop into the left eye 3 (three) times a day Instill 1 drop into surgical eye three times daily starting after surgery predniSONE (DELTASONE) 5 mg tablet 04/30/2023 10/15/22 -- Gautam Cope MD Take 1 tablet (5 mg) by mouth two times a day Patient taking differently: Take 1 tablet (5 mg) by mouth 2 (two) times a day PreviDent 5000 Plus 1.1 % cream 04/29/2023 12/10/22 -- ProviderColeen MD No current facility-administered medications for this encounter. Current Outpatient Medications: abiraterone (ZYTIGA) 250 mg tablet Accu-Chek Fastclix Lancet Drum misc albuterol HFA (PROVENTIL HFA,VENTOLIN HFA,PROAIR HFA) 90 mcg/actuation inhaler aspirin 81 mg enteric coated tablet blood glucose diagnostic (Accu-Chek Guide test strips) strip carvediloL (COREG) 25 mg tablet chlorthalidone 25 mg tablet dorzolamide-timoloL (COSOPT) 22.3-6.8 mg/mL ophthalmic solution insulin glargine (LANTUS) 100 unit/mL (3 mL) pen for injection Januvia 25 mg tablet ketorolac (ACULAR) 0.5 % ophthalmic solution lisinopriL (PRINIVIL,ZESTRIL) 20 mg tablet moxifloxacin (VIGAMOX) 0.5 % ophthalmic solution oxyCODONE (ROXICODONE) 5 mg immediate release tablet pantoprazole DR (PROTONIX) 40 mg EC tablet pen needle, diabetic (BD Ultra-Fine Short Pen Needle) 31 gauge x 5/16 needle pravastatin (PRAVACHOL) 20 mg tablet prednisoLONE acetate (PRED FORTE) 1 % ophthalmic suspension predniSONE (DELTASONE) 5 mg tablet PreviDent 5000 Plus 1.1 % cream NovoLOG 100 unit/mL (3 mL) pen for injection Social History Tobacco Use Smoking Status Former Packs/day: 0.25 Years: 45.00 Additional pack years: 0.00 Total pack years: 11.25 Types: Cigarettes Start date: 1957 Quit date: 2009 Years since quittin.0 Passive exposure: Past Smokeless Tobacco Never Tobacco Comments Smoking History Packs/day: 10 Cigarettes Alcohol Use: Not At Risk (04/30/2023) AUDIT-C Frequency of Alcohol Consumption: 2-3 times a week Average Number of Drinks: 1 or 2 Frequency of Binge Drinking: Never Substance and Sexual Activity Drug Use Yes Frequency: 1.0 times per week Types: Marijuana Family History Problem Relation Age of Onset Kidney failure Mother Dementia Father Diabetes type II Other Diabetes mellitus type 2; Hypertension Other Hypertension; Anesthesia problems Neg Hx Relevant diagnostics: ECG(s): N/A Echocardiogram(s): TTE SUMMARY: Atrial flutter/fib; Thickened aortic valve leaflets; Mild Aortic Stenosis, variable R-R interval precludes extrapolation of the aortic valve area; LA is normal. Normal RV cavity size. LV cavity size is normal. Reduced global LV myocardial longitudinal function and strain pattern. Upper-Normal LV wall thickness/mass. Normal Inferior vena cava. Upper-Normal aorta; As compared to previous study (02/23/2018 ), there are no appreciable changes. No AR seen, No MR seen, mild , no MS, normal TV, normal PV. Diastolic function: Normal Ao TVI=; TTE 02/23/2018-- No previous echo report. Normal LV systolic function though the apex and the distal inferior wall appear hypokinetic on some of the contrast-enhanced views. Normal RV systolic function. Normal chamber sizes. Upper normal aortic root size after indexing to BSA. Normal pericardium without effusion. LV wall thickness is increased with a sigmoid-shaped septum. Nodular thickening of the AV. IVC size is Trace AI, Mild MR, mild , no MS, normal TV, normal PV. NATE= 1.5 cm2 Diastolic function: Impaired Relaxation. Trace AI, Mild MR, no , no MS, normal TV, normal PV. Diastolic function: Impaired Relaxation AV V max 2.2m/s LVEF 66% Stress test(s): N/A Cardiac catheterization(s): N/A PFT(s): N/A Vascular studies: N/A Other: 03/2023 event monitor The patient's monitoring period was 03/18/2023 - 04/11/2023. Baseline sample showed Sinus Rhythm, Sinus Bradycardia w/PVCs (4 in 1 min)/Artifact/Lead Loss with a heart rate of 59.7 bpm. There were 0 critical, 0 serious, and 16 stable events that occurred., I have reviewed the findings on the individual tracings for the dates noted below and I agree., The full scanned/data report is available in [facility]. labeled MONITOR STRIPS PDF There were no vitals filed for this visit. PT: No results found for requested labs within last 30 days. INR: No results found for requested labs within last 30 days. APTT: No results found for requested labs within last 30 days. Hgb A1C: 05/04/2023: 8.1 % (H) CBC RBC: 05/04/2023: 4.25 M/cumm (L) RDW: No results found for requested labs within last 30 days. MCHC: 05/04/2023: 32.7 g/dL MCH: 05/04/2023: 29.4 pg MCV: 05/04/2023: 90.1 fL Hct: 05/04/2023: 38.3 % (L) Hgb: 05/04/2023: 12.5 g/dL (L) WBC: 05/04/2023: 10.2 K/cumm (H) MPV: 05/04/2023: 7.6 fL Platelets: 05/04/2023: 315 K/cumm RDW CV: 05/04/2023: 14.9 % (H) RDW Sd: No results found for requested labs within last 30 days. BMP Glucose: 05/04/2023: 92 mg/dL Calcium: 05/04/2023: 8.8 mg/dL Sodium: 05/04/2023: 140 mmol/L Potassium: 05/04/2023: 4.5 mmol/L CO2: 05/04/2023: 27 mmol/L Chloride: 05/04/2023: 106 mmol/L BUN: 05/04/2023: 44 mg/dL (H) Creatinine: 05/04/2023: 2.26 mg/dL (H) Brit index score: 90 DOS Physical Exam Medical history, medications, and allergies reviewed. Attestation: This PAT evaluation Airway Exam: Mallampati: II Cervical ROM: FROM Cardiovascular Exam: Rate: regular Rhythm: regular Negative for Murmur No extra heart sounds appreciated Negative for peripheral edema Pulmonary Exam: LCTA, bilat Anesthesia Plan ASA 3 My patient is approved for the Anesthesia Controlled Medication protocol when under care of a STATE GAME WARDEN Planned anesthesia: MAC Induction: Induction: intravenous. Postoperative Plan: No plan for postoperative opioid use. No postoperative mechanical ventilation intended. Patient's planned disposition post procedure is Outpatient. Planned trial extubation. Informed Consent: Discussed plan with STATE GAME WARDEN. Anesthesia plan and risks discussed with patient and spouse. Plan and Consent Comments: Risks discussed: failed MAC with conversion to GA, sore throat, nausea, pain, airway and dental damage, aspiration, pulmonary complications, awareness under anaesthesia, KS & MACE, stroke, drug reaction, major organ dysfunction Consent and Attending signature: I and/or my designee have discussed the anesthesia plan, benefits, possible alternatives, parental presence at time of induction (if indicated), and clinically relevant risks that may include dental injury, unintentional awareness, and/or other complications. The patient and/or parent/legal guardian understand, and agree to proceed. All questions answered. OF TALENT MANAGEMENT OF TALENT MANAGEMENT OF TALENT MANAGEMENT OF TALENT MANAGEMENT documented in this encounter Plan of Treatment [...] to monitor diabetes and kidney status, etc. [facility] Chronic Pain Care Plan Chronic Care Management No change(03/23 1:47 PM HEAD OF TALENT MANAGEMENT) No Ingrid Oden RN Note: Problem: Chronic Pain Goals: 1. Minimize further functional decline 2. Maximize quality of life 3. Control pain Strategies: - Activity/exercise program recommendation - Conservative stepwise pain medicine strategy with multi-disciplinary approach - Recommend healthy lifestyle strategies and compensatory methods as needed documented as of this encounter Visit Diagnoses Not on filedocumented in this encounter Administered Medications Inactive Administered Medications - up to 3 most recent administrations Medication Order MAR Action Action Date Dose Rate Site lidocaine (cardiac) (XYLOCAINE) preservative free injection intravenous, As needed, Starting on Wed05/19/23 at 0901, Anesthesia Intra-op, Indications: Ventricular ArrhythmiasIndications:Ventricular Arrhythmias Given 05/19/2023 9:01 AM HEAD OF TALENT MANAGEMENT 40 mg propofoL (DIPRIVAN) 10 mg/mL IV intravenous, As needed, Starting on Wed05/19/23 at 0901, Anesthesia Intra-op New Bag 05/19/2023 9:01 AM HEAD OF TALENT MANAGEMENT 40 mg documented in this encounter Care Teams Taxi Cab Driver Relationship Specialty Start Date End Date Kraig Ching MD [address] [facility] [address] [place] [address] PCP - General 07/10/16 Gautam Cope MD [address] [facility] [address] [place] [address] Medical Oncologist/Cell Support Operator Medical Oncology 08/18/18 Tramaine Roe MD [address] [facility] [address] [place] [address] Referring Physician Urology 08/18/18 Sukhwinder Uribe MD [address] [facility] [address] [place] [address] Consulting Physician Urology 08/18/18 Shay Guillermo MD [address] [facility] [address] [place] [address] Referring Physician Urology 08/18/18 Marsha Landis RN Registered Nurse 11/17/18 documented as of this encounter
--- OUTSIDE RECORDS SUMMARY | 2024-03-31 04:53 | XMS_ITS | Encounter Summary ---
Author Organization [facility] Address [address] [place] [address] Phone Care Team Providers Care Structural Worker Name Role Phone Kraig Ching MD Primary Care Provider [phone] Gautam Cope MD Unavailable Tramaine Roe MD Unavailable [phone] Sukhwinder Uribe MD Unavailable [phone] Shay Guillermo MD Unavailable [phone] Marsha Landis RN Unavailable Unavailab le Reason for Visit * Cardiology (Routine) - Closed Specialty Diagnoses / Procedures Referred By Contac t Referred To Contact Diagnoses Systolic murmur Procedures Transthoracic Echo (TTE) Complete W Doppler/CF Rodolfo Peters MD [address] [place] [address] Phone: tel: fax: [facility] [address] [place] [address] Referral ID Status Reason Start Date Expiration Date Visits Re quested Visits Authorized [id number] Closed 03/18/2023 04/16/2024 1 1 Encounter Details Date Type Department Care Team (Latest Contact Info) Description 04/29/2023 11:30 AM FRAME CATCHER Ancillary Procedure [facility] [address] [facility] [address] [place] [address] Systolic murmur Social History Tobacco Use Types Packs/Day Years [...] on file 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 FRAME CATCHER Gender Identity Not on file Sexual Orientation [...] Chronic Care Management No change(03/23 1:47 PM FRAME CATCHER) No Ingrid Oden, SHEA Note: Problem: Chronic Pain Goals: 1. Minimize further functional decline 2. Maximize quality of life 3. Control pain Strategies: - Activity/exercise program recommendation - Conservative stepwise pain medicine strategy with multi-disciplinary approach - Recommend healthy lifestyle strategies and compensatory methods as needed documented as of this encounter Procedures Procedure Name Priority Date/Time Associated Diagnosis Comments TRANSTHORACIC ECHO (TTE) COMPLETE W DOPPLER/CF W CONTRAST Routine 04/29/2023 12:39 PM FRAME CATCHER Systolic murmur documented in this encounter Results * TRANSTHORACIC ECHO (TTE) COMPLETE W DOPPLER/CF W CONTRAST (04/29/2023 12:39 PM FRAME CATCHER) LV EF 71 % CARDIOREPORT Anatomical Region Laterality Modality Ultrasound 04/29/2023 11:3 0 AM FRAME CATCHER Narrative 04/30/2023 8:14 AM FRAME CATCHER Patient name: David Wei Date of test: 04/29/2023 Type of test: TTE w/Doppler Hospital #: [id number] Date of : 1940 (M) Bundle Clerk: PETERSON Rios Referring Physician: RODOLFO PETERS MD Contrast Agent: 0.8 ml Optison Administered, (2.2 ml wasted). Contrast Administered by: Marsha Birmingahm RN Supervised/Interpreted by: René Rivera MD Diagnosis: Location: [facility] Reason for test: Murmur, GARCIA MV Structure: Normal, ?MV Motion: Normal, ?? Mitral Annulus: Normal AV Structure: tricuspid and is moderately thickened, ?? AV Motion: minimally restricted Aotic root: Normal, ?TM: Normal, ?? PV: Normal Valvular Vegetations: none seen, ?Mass/Thrombi: none seen RA: Normal Measurements: ?M-Mode ?Normal ? Aotic Root: ? <3.8 ? LA: ? <4.0 ? RV: ? <2.8 ? LV(ED): ? <5.7 ? LV(ES): ? Variable ?2D Linear Normal ? Aotic Root: 4.2 cm ?<4.0 ? Ao Indexed: 1.9 cm/M2 <2.0 ? LA: ? <4.0 ? RV: ? 3.4 cm ?<4.2 ? LV(ED): ? 5.8 cm ?<5.9 ? LV(ES): ? 3.5 cm ?<4.0 ?2D Vol. ?? Normal ?Indexed ?? Indexed Normal RA: ? 48.0 ml ? 22.2 ml/M2 ?11-39 ? LA: ? 62.0 ml ? 28.6 ml/M2 ?16-34 ? RV: ? <12.7 ? LV(ED): ? 130.0 ml ??62-150 ?60.0 ml/M2 ?<75 ? LV(ES): ? 38.0 ml ?? 21-61 ? 17.5 ml/M2 ?<32 ?3D Vol. ? Indexed Normal LV(ED): ?<75 ? LV(ES): ?<32 ? LV EF: 71 % ?? (Normal: >=52%) ?? LV Septum: 1.2 cm ?(Normal: <1.0 cm) Wall Motion Scoring (1=Normal 2=Hypo 3=Akinetic 4=Dyskin./Aneurysm 0=Not visualized) Parasternal Long [place]:MAS=1 BAS=1 MIL=1 PAVEL=1 Parasternal Short [place]:MAS=1 MIS=1 UT=1 MIL=1 MAL=1 MA=1 Apical 4 Chambers:=1 MIS=1 BIS=1 BAL=1 MAL=1 AL=1 AC=1 Apical 2 Chambers:AI=1 UT=1 BI=1 BA=1 MA=1 AA=1 AC=1 LV Global Longitudinal Strain: -11.2% ??(Normal <-17%) RV Global Longitudinal Strain: LV Function: Normal LV Ejection Fraction, (EF=71%) RV Function: Normal Septal Motion: Normal Pericardial Effusion: none seen Atrial Septum: Normal DOPPLER/COLOR FLOW DOPPLER RESULTS: Diastolic Function: Normal Tricuspid Valve: normal TV Pulmonic Valve: normal PV AV Regurgitation: No AR seen AV Stenosis: mild AV Area: ??cm2 AV Pressure Gradient (mmHg): Mean: 15, Peak:26 MV Regurgitation: No MR seen MV Stenosis: no MS MV Area: ??cm2 MV Pressure Gradient (mmHg): Mean: 0 MV ERO: ??cm Regurg. Vol.: ??ml/beat Regurg. Frac.: ??% PA Pressure: ??mmHg DOPPLER/COLOR FOLOW DOPPLER COMMENTS: No AR seen, No MR seen, mild , no MS, normal TV, normal PV. Diastolic function: Normal Ao TVI=; CONTRAST: 0.8 ml Optison Administered, (2.2 ml wasted). SUMMARY: Atrial flutter/fib; Thickened aortic valve leaflets; ??Mild Aortic Stenosis, variable R-R interval precludes extrapolation of the aortic valve area; LA is normal. Normal RV cavity size. LV cavity size is normal. ??Reduced global LV myocardial longitudinal function and strain pattern. Upper-Normal LV wall thickness/mass. Normal Inferior vena cava. Upper-Normal aorta; ??As compared to previous study (02/23/2018 ), there are no appreciable changes. Confirmed on ??04/30/2023 - 08:14:21 by René Rivera MD By signing this report, the attending frozen yogurt maker certifies that he or she has personally supervised and interpreted the echocardiogram and has reviewed and or edited and agrees with the written comments contained within the report. Procedure Note René Rivera MD - 04/30/2023 Patient name: David Wei Date of test: 04/29/2023 Type of test: TTE w/Doppler [facility] #: [id number] Date of : 1940 (M) Bundle Clerk: PETERSON Rios Referring Physician: RODOLFO PETERS MD Contrast Agent: 0.8 ml Optison Administered, (2.2 ml wasted). Contrast Administered by: Marsha Birmingham RN Supervised/Interpreted by: René Rivera MD Diagnosis: Location: [facility] Reason for test: Murmur, GARCIA MV Structure: Normal, MV Motion: Normal, Mitral Annulus: Normal AV Structure: tricuspid and is moderately thickened, AV Motion: minimally restricted Aotic root: Normal, TM: Normal, PV: Normal Valvular Vegetations: none seen, Mass/Thrombi: none seen RA: Normal Measurements: M-Mode Normal Aotic Root: <3.8 LA: <4.0 RV: <2.8 LV(ED): <5.7 LV(ES): Variable 2D Linear Normal Aotic Root: 4.2 cm <4.0 Ao Indexed: 1.9 cm/M2 <2.0 LA: <4.0 RV: 3.4 cm <4.2 LV(ED): 5.8 cm <5.9 LV(ES): 3.5 cm <4.0 2D Vol. Normal Indexed Indexed Normal RA: 48.0 ml 22.2 ml/M2 11-39 LA: 62.0 ml 28.6 ml/M2 16-34 RV: <12.7 LV(ED): 130.0 ml 62-150 60.0 ml/M2 <75 LV(ES): 38.0 ml 21-61 17.5 ml/M2 <32 3D Vol. Indexed Normal LV(ED): <75 LV(ES): <32 LV EF: 71 % (Normal: >=52%) LV Septum: 1.2 cm (Normal: <1.0 cm) Wall Motion Scoring (1=Normal 2=Hypo 3=Akinetic 4=Dyskin./Aneurysm 0=Not visualized) Parasternal Long [place]:MAS=1 BAS=1 MIL=1 PAVEL=1 Parasternal Short [place]:MAS=1 MIS=1 UT=1 MIL=1 MAL=1 MA=1 Apical 4 Chambers:=1 MIS=1 BIS=1 BAL=1 MAL=1 AL=1 AC=1 Apical 2 Chambers:AI=1 UT=1 BI=1 BA=1 MA=1 AA=1 AC=1 LV Global Longitudinal Strain: -11.2% (Normal <-17%) RV Global Longitudinal Strain: LV Function: Normal LV Ejection Fraction, (EF=71%) RV Function: Normal Septal Motion: Normal Pericardial Effusion: none seen Atrial Septum: Normal DOPPLER/COLOR FLOW DOPPLER RESULTS: Diastolic Function: Normal Tricuspid Valve: normal TV Pulmonic Valve: normal PV AV Regurgitation: No AR seen AV Stenosis: mild AV Area: cm2 AV Pressure Gradient (mmHg): Mean: 15, Peak:26 MV Regurgitation: No MR seen MV Stenosis: no MS MV Area: cm2 MV Pressure Gradient (mmHg): Mean: 0 MV ERO: cm Regurg. Vol.: ml/beat Regurg. Frac.: % PA Pressure: mmHg DOPPLER/COLOR FOLOW DOPPLER COMMENTS: No AR seen, No MR seen, mild , no MS, normal TV, normal PV. Diastolic function: Normal Ao TVI=; CONTRAST: 0.8 ml Optison Administered, (2.2 ml wasted). SUMMARY: Atrial flutter/fib; Thickened aortic valve leaflets; Mild Aortic Stenosis, variable R-R interval precludes extrapolation of the aortic valve area; LA is normal. Normal RV cavity size. LV cavity size is normal. Reduced global LV myocardial longitudinal function and strain pattern. Upper-Normal LV wall thickness/mass. Normal Inferior vena cava. Upper-Normal aorta; As compared to previous study (02/23/2018 ), there are no appreciable changes. Confirmed on 04/30/2023 - 08:14:21 by René Rivera MD By signing this report, the attending frozen yogurt maker certifies that he or she has personally supervised and interpreted the echocardiogram and has reviewed and or edited and agrees with the written comments contained within the report. Rodolfo Peters MD CV ECHO PROCEDURES Final Result documented in this encounter Visit Diagnoses Diagnosis Systolic murmur Undiagnosed cardiac murmurs documented in this encounter Administered Medications Inactive Administered Medications - up to 3 most recent administrations Medication Order MAR Action Action Date Dose Rate Site perflutren protein-a (OPTISON) 3 mL in sodium chloride 0.9% 8 mL syringe 1-8 mL, intravenous, Once in imaging, contrast, Starting on Marisabel 04/29/23 at 1131, For 1 dose, Intra-Procedure (CV) Contrast Given 04/29/2023 12:38 PM FRAME CATCHER 2 mL documented in this encounter Orders Medications Ordered That Adiel ht Not Have Been Administered Count Last Ordered Date First Ordered Date perflutren protein-a (OPTISO N) 3 mL in sodium chloride 0.9% 8 mL syringe 1 04/29/2023 documented in this encounter Care Teams Structural Worker Relationship Specialty Start Date End Date Kraig Ching MD [address] [facility] [address] [place] [address] PCP - General 07/10/16 Gautam Cope MD [address] [facility] [address] [place] [address] Medical Oncologist/Superintendent Laundry Medical Oncology 08/18/18 Tramaine Roe MD [address] [address] Referring Physician Urology 08/18/18 Sukhwinder Uribe MD [id number] [place] [address] Consulting Physician Urology 08/18/18 Shay Guillermo MD [id number] [place] [address] Referring Physician Urology 08/18/18 Marsha Landis, RN Registered Nurse 11/17/18 documented as of this encounter
--- OUTSIDE RECORDS SUMMARY | 2024-03-31 04:53 | XMS_ITS | Encounter Summary ---
Author Organization [facility] Address [address] [place] [address] Phone Care Team Providers Care Reverse Unit Operator Fisherman Name Role Phone Kraig Ching MD Primary Care Provider Gautam Cope MD Unavailable Tramaine Roe MD Unavailable [phone] Sukhwinder Uribe MD Unavailable [phone] Shay Guillermo MD Unavailable [phone] Marsha Landis RN Unavailable Unavailab le Encounter Details Date Type Department Care Team (Late st Contact Info) Description 06/14/2023 Orders Only [facility] Oncology [address] [place] [address] Gautam Cope MD [address] [facility] [address] [place], [place] [id number] Social History Tobacco Use Types Packs/Day Years [...] on file 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 [facility] Chronic Pain Care Plan Chronic Care Management No change(03/23 1:47 PM REAL ESTATE SALES AGENT) No Ingrid Oden RN Note: Problem: Chronic Pain Goals: 1. Minimize further functional decline 2. Maximize quality of life 3. Control pain Strategies: - Activity/exercise program recommendation - Conservative stepwise pain medicine strategy with multi-disciplinary approach - Recommend healthy lifestyle strategies and compensatory methods as needed documented as of this encounter Visit Diagnoses Not on filedocumented in this encounter Care Teams Reverse Unit Operator Fisherman Relationship Specialty Start Date End Date Kraig Ching MD [address] [facility] [address] [place] [address] PCP - General 07/10/16 Gautam Cope MD [address] [facility] [address] [place] [address] Medical Oncologist/Hogshead Salvage Medical Oncology 08/18/18 Tramaine Roe MD [address] [facility] [address] [place] [address] Referring Physician Urology 08/18/18 Sukhwinder Uribe MD [address] [facility] [address] [place] [address] Consulting Physician Urology 08/18/18 Shay Guillermo MD [address] [facility] [address] [place] [address] Referring Physician Urology 08/18/18 Marsha Landis, RN Registered Nurse 11/17/18 documented as of this encounter
--- OUTSIDE RECORDS SUMMARY | 2024-03-31 04:53 | XMS_ITS | Encounter Summary ---
Author Organization [facility] Address [address] [place] [address] Phone Care Team Providers Care Top Lift Compresser Name Role Phone Kraig Ching MD Primary Care Provider [phone] Gautam Cope MD Unavailable Tramaine Roe MD Unavailable [phone] Sukhwinder Uribe MD Unavailable [phone] Shay Guillermo MD Unavailable Marsha Landis RN Unavailable Unavailab le Reason for Referral * Diagnostic Imaging (Routine) - Closed Specialty Diagnoses / Procedures Referred By Contac t Referred To Contact Diagnoses Glaucoma suspect of both eyes Procedures OCT, Optic Nerve - OU - Both Eyes Higinio Connolly MD [address] [facility] [email or web address] [address] Phone: tel: fax: [facility] (All Locations) Referral ID Status Reason Start Date Expiration Date Visits Re quested Visits Authorized [id number] Closed 06/25/2023 07/24/2024 1 1 * Diagnostic Imaging (Routine) - Closed Specialty Diagnoses / Procedures Referred By Contulices t Referred To Contact Diagnoses Glaucoma suspect of both eyes Procedures Kurtz Visual Field - OU - Both Eyes Higinio Connolly MD [address] [facility] [address] [place] [address] Phone: tel: fax: [facility] (All Locations) Referral ID Status Reason Start Date Expiration Date Visits Re quested Visits Authorized [id number] Closed 06/25/2023 07/24/2024 1 1 Encounter Details Date Type Department Care Team (Late st Contact Info) Description 06/25/2023 10:00 AM CDT Office Visit [facility] Ophthalmology [address] [place] [address] Higinio Connolly MD [address] [facility] [address] [place] [address] Pseudophakia of both eyes (Primary Dx); Glaucoma suspect of both eyes Social History [...] on file 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 E COMMERCE SOLUTION ARCHITECT Gender Identity Not on file Sexual Orientation Not on file documented as of this encounter Progress Notes * Higinio Connolly MD - 06/25/2023 10:00 AM CDT Impression: Doing well 2 weeks status post (s/p) phaco/IOL OD and 5 weeks s/p phaco/IOL OS Previous narrow anterior chamber angles OU (glaucoma damage vs suspect) - resolved with significantimprovement in IOP control OU since surgeries Plan: Taper off post-op drops over the next week. Continue Cosopt OU BID. Return in three months for visual abebe then dilated exam and optic nerve OCT OU. documented in this encounter Plan of Treatment [...] to monitor diabetes and kidney status, etc. [facility] Chronic Pain Care Plan Chronic Care Management No change(03/23 1:47 PM E COMMERCE SOLUTION ARCHITECT) No Ingrid Oden RN Note: Problem: Chronic Pain Goals: 1. Minimize further functional decline 2. Maximize quality of life 3. Control pain Strategies: - Activity/exercise program recommendation - Conservative stepwise pain medicine strategy with multi-disciplinary approach - Recommend healthy lifestyle strategies and compensatory methods as needed documented as of this encounter Results * OCT, Optic Nerve - OU - [...] was normal. Average RNFL thickness 65 micrometers. 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, with long-term current use of insulin ([facility]) Pseudophakia of both eyes Lens replaced by other means Glaucoma suspect of both eyes Unspecified preglaucoma documented in this encounter Discontinued Medications Medication Sig Discontinue Reason Start Date End Da te moxifloxacin (VIGAMOX) 0.5 % ophthalmic solution Instill 1 drop into surgical eye three times daily starting two days before surgery 12/08/2022 06/25/2023 documented as of this encounter Eye Exam Visual Acuity (Snellen - Linear) Right eye Left eye Dist sc 20/20 -1 20/25 Tonometry (Applanation, 10:03 AM) Right eye Left eye Pressure 12 12 Pupils Dark Light Shape APD Right eye 3 2.5 Round None Left eye 3 2.5 Round None Visual Abebe Right eye Left eye Full Restrictions Partial outer in ferior temporal, inferior nasal deficiencies Extraocular Movement Right eye Left eye Full Full Neuro/Psych Oriented x3: Yes Mood/Affect: Normal Slit Lamp Exam Right eye Left eye Lids/Lashes Normal Normal Conjunctiva/Sclera White and quiet White and dereck et Cornea Clear Clear Anterior Chamber Deep and quiet Deep and quiet Iris Round and reactive Round and melo ctive Lens Posterior chamber in traocular lens, no Posterior capsular opacification Posterior chamber intraocular lens, no Posterior capsular opacification Care Teams Top Lift Compresser Relationship Specialty Start Date End Date Kraig Ching MD [address] [facility] [address] [place] [address] PCP - General 07/10/16 Gautam Cope MD [address] [facility] [address] [place] [address] Medical Oncologist/Veterinary Milk Specialist Medical Oncology 08/18/18 Tramaine Roe MD [address] [facility] [address] [place] [address] Referring Physician Urology 08/18/18 Sukhwinder Uribe MD [address] [facility] [address] [place] [address] Consulting Physician Urology 08/18/18 Shay Guillermo MD [address] [facility] [address] [place] [address] Referring Physician Urology 08/18/18 Marsha Landis, RN Registered Nurse 11/17/18 documented as of this encounter
--- OUTSIDE RECORDS SUMMARY | 2024-03-31 04:53 | XMS_ITS | Encounter Summary ---
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] Procedures OH XCAPSL CTRC RMVL INSJ IO LENS PROSTH W/O ECP EXTRACTION CATARACT - PHACOEMULSIFICATION AND LENS IMPLANT Referral ID Status Reason Start Date Expiration Date Visits Re quested Visits Authorized [id number] 1 1 Encounter Details Date Type Department Care Team (Latest Contact Info) Description 06/09/2023 7:31 AM HYDROGENATION OPERATOR - 06/09/2023 9:20 AM [facility] Hospital Encounter [facility] Surgery at [facility] Advanced Medicine [address] [place] [address] Higinio Foley MD [address] [facility] [address] [place] [address] Encounter for preadmission testing (Primary Dx); Combined forms of age-related cataract of right eye Discharge Disposition: Discharge to home or self [...] on file 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 HYDROGENATION OPERATOR Gender Identity Not on file Sexual Orientation Not on file documented as of this encounter Last Filed Vital Signs Vital Sign Reading Time Taken Comments Blood Pressure 159/88 06/09/2023 8:50 AM HYDROGENATION OPERATOR Pulse 57 06/09/2023 8:50 AM HYDROGENATION OPERATOR Temperature 36.4 ??C (97.5 ??F) 06/09/2023 8:50 AM CS T Respiratory Rate 16 06/09/2023 8:50 AM HYDROGENATION OPERATOR Oxygen Saturation 98% 06/09/2023 8:50 AM HYDROGENATION OPERATOR Inhaled Oxygen Concentration - - Weight 96.6 kg (213 lb) 05/20/2023 2:00 PM HYDROGENATION OPERATOR Height 179.1 cm (5' 10.5 ) 05/20/2023 2:00 PM CS T Body Mass Index 30.13 05/20/2023 2:00 PM HYDROGENATION OPERATOR documented in this encounter Discharge Instructions * Discharge Instructions* Higinio Foley MD - 06/09/2023 8:53 AM HYDROGENATION OPERATOR POST- OPERATIVE INSTRUCTIONS 1. Lie on the opposite side the night following surgery if possible. 2. Leave the patch on until the next day. It will be removed in the office. 3. Bring your drops with you to the office the following morning for your visit. 4. DO NOT rub or apply pressure to the operated eye. Use caution when bending down not to bump the operated eye for 1-[address] for 2-3 days after surgery. 6. Use your eye drops as directed until your next follow up visit. 7. Wear the shield at night when you go to bed for one week after surgery, wear your glasses duringthe day for protection. 8. You may shower, wash your hair and shave the following day after your post op visit. Be careful to avoid direct contact with the operated eye. 9. YOU WILL NOT damage your eye by reading, watching TV or doing any normal activities. 10. Expect your vision to change from day to day. If you have a SUDDEN DECREASE IN VISION, notify the office immediately. 11. A mild sticking pain, itching, and some discharge are normal. SUDDEN PAIN OR REDNESS IN THE EYEIS NOT NORMAL, and should be reported immediately. OGENATION OPERATOR * Attachments The following attachments cannot be sent through Care Everywhere. * [facility] TO EXCELLENT CARE AFTER SURGERY documented in this encounter Medications at Time of Discharge [...] 4 TIMES EVERY DAY DIRECTED 400 each 12/24/2022 PreviDent 5000 Plus 1.1 % creamIndications :Prevention of Dental Caries Apply topically nightly 12/10/2022 abiraterone (ZYTIGA) 250 mg tabletIndication s:Prostate cancer (HCC) Take 4 tablets (1,000 mg) by mouth daily. Do not eat anything for at least 2 hours before and for at least 1 hour after 120 tablet 4 03/12/2023 4 Accu-Chek Fastclix Lancet Drum misc USE DIRECTED 204 each 05/30/2023 4 Accu-Chek Guide test strips strip USE DIRECTED TWICE DAILY 200 strip 05/30/2023 4 carvediloL (COREG) 25 mg tabletIndication s:CKD (chronic kidney disease) stage 3, GFR 30-59 ml/min ([facility]) Take 1 tablet (25 mg total) by mouth 2 (two) times a day with meals 60 tablet 11 04/20/2023 4 chlorthalidone 25 mg tablet Take 1 tablet (25 mg total) by mouth daily 90 tablet 3 10/02/2022 4 dorzolamide-gilbert loL (COSOPT) 22.3-6.8 mg/mL ophthalmic solution Administer 1 drop into both eyes 2 (two) times a day 10 mL 12/08/2022 4 insulin glargine (LANTUS) 100 unit/mL (3 mL) pen for injection ADMINISTER 28 UNITS UNDER THE SKIN DAILY 9 mL 11 03/08/2023 4 Januvia 25 mg tabletIndication s:Type 2 diabetes mellitus with stage 3 chronic kidney disease, without long-term current use of insulin ([facility]) TAKE 1 TABLET BY MOUTH DAILY 30 tablet 11 12/08/2022 4 ketorolac (ACULAR) 0.5 % ophthalmic solution Instill one drop into surgical eye three time daily starting two days pre op 5 mL 1 12/08/2022 4 lisinopriL (PRINIVIL,ZESTRI L) 20 mg tablet Take 1.5 tablets (30 mg total) by mouth daily 135 tablet 3 07/22/2022 4 moxifloxacin (VIGAMOX) 0.5 % ophthalmic solution Instill 1 drop into surgical eye three times daily starting two days before surgery 3 mL 1 12/08/2022 4 oxyCODONE (ROXICODONE) 5 mg immediate release [...] Discharge Disposition Disposition Code Departure Means Destination Comment s Discharge to home or self care Walk-out documented in this encounter H&P Notes * Higinio Foley MD - 06/09/2023 8:20 AM CST I have reviewed the H&P, examined the patient, and endorse the findings as written. Plan of Care : Based on the above findings, I consider David Wei to be an acceptable risk for : Procedure(s): EXTRACTION CATARACT - PHACOEMULSIFICATION AND LENS IMPLANT OGENATION OPERATOR Source Note - Higinio Foley MD - 06/04/2023 7:52 AM HYDROGENATION OPERATOR This patient is a 82 y/o WM presenting for cataract surgery OD. The patient is noticing vision lossaffecting daily activities. POHx - phaco/IOL OS - 05/19/2023 PMHx and Rx - see chart Allergies - Atorvastatin Ocular Exam - visual acuity (VA) OD - 20/40 best corrected Lens OD - 3+ NS/central PSC Fundus OD - cup-to-disc ratio (C/D) 0.3, m/v/p - unremarkable Impression: Visually significant nuclear/PSC cataract OD Plan: Proceed with phaco/IOL OD OGENATION OPERATOR * Higinio Foley MD - 06/04/2023 7:52 AM CST This patient is a 82 y/o WM presenting for cataract surgery OD. The patient is noticing vision lossaffecting daily activities. POHx - phaco/IOL OS - 05/19/2023 PMHx and Rx - see chart Allergies - Atorvastatin Ocular Exam - visual acuity (VA) OD - 20/40 best corrected Lens OD - 3+ NS/central PSC Fundus OD - cup-to-disc ratio (C/D) 0.3, m/v/p - unremarkable Impression: Visually significant nuclear/PSC cataract OD Plan: Proceed with phaco/IOL OD OGENATION OPERATOR documented in this encounter Miscellaneous Notes * Op Note - Higinio Foley MD - 06/09/2023 8:37 AM CST PREOPERATIVE DIAGNOSIS: Cataract Right eye POSTOPERATIVE DIAGNOSIS: Cataract Right eye SURGEON: Higinio Foley MD PROCEDURE PERFORMED: Phacoemulsification of cataract with implantation of posterior chamber intraocular lens - Right Eye ANESTHESIA: Local/MAC with facial and retrobulbar injections of a 1:1 mixture of 2% Lidocaine and 0.75% Marcaine COMPLICATIONS: None INDICATIONS: The patient presents with vision loss affecting daily activities. This is associated with significant age-related cataract. The above procedure is being performed to improve the patient's visual acuity and quality of life. DESCRIPTION OF PROCEDURE: In the pre-operative holding area, IV sedation was given and the local anesthetics administered as above. The patient was brought to the operating room and placed in the supine position. The surgical area was prepped with Betadine and draped in the usual sterile manner. The operating microscope was placed in position over the eye. A wire lid speculum was placed and several drops of Tetracaine instilled. A temporal clear corneal incision was made with a 2.4-mm keratotome in a self-sealing fashion and an adjacent paracentesis was made with a 1-mm sideport blade. Viscoat was injected through the main incision. This was a self-sealing incision. A continuous curvilinear capsulorrhexis was created with a cystotome and completed with Utrata forceps. The anterior capsular remnant was removed. The nucleus of the lens was hydrodisected to free the nucleus from its surrounding cortical attachments. The phacoemulsification handpiece was then inserted. The nucleus was then sculpted and cracked into four quadrants using a two-handed technique. Each quadrant was removed in sequential fashion using pulsed phacoemulsification power. Total phaco power was 12.74 CDE. The cortex of the lens was then removed using the automated irrigation/aspirationsystem. The posterior capsule was polished to remove residual epithelial cells. The anterior chamber was then reformed with Provisc to open up the capsular bag. A +19.5 D power Wilder model CNA0T0 posterior chamber intraocular lens was placed into the capsular bag. Provisc was then removed using the automated irrigation/aspiration handpiece. Balanced salt solution was used to rehydrate the paracentesis and the temporal corneal wounds and was instilled into the anterior chamber to pressurize the globe to an adequate level. The wounds were checked and foundto be watertight. A collagen shield soaked in antibiotic and steroid drops was placed over the cornea and the eye was patched. A metal shield was placed over the patch. The patient tolerated the procedure well and there were no complications. The patient was transferred back to outpatient recovery i n good condition. 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 Item Serial No. Podiatry Teacher Lot No. LRB No. Used Action [employer] Lens Iol CNA0t0.195 [place] [facility] Autonom CNA0T0.195 - [id number] - [id number] Lens [employer] Lens Iol CNA0t0.195 [facility] [employer] CNA0T0.195 [id number] [employer] Right 1 Implanted Blood/Blood Products Transfused: 0 mls Complications: None Condition on Discharge from the operating room was stable Higinio Foley MD Date: 06/09/2023 Time: 8:52 AM No Resident involved on case OGENATION OPERATOR * Pre-Procedure Instructions - Vale Campbell, LILIA - 06/02/2023 12:36 PM CST [facility] Planning CPAP Clinic Location: [facility] The night before your surgery: * Do not eat anything after midnight the night before your procedure. The morning of your surgery: * You may have clear liquids on your surgery day. You must stop drinking two hours before you arrive to the surgery facility. Acceptable clear liquids include water, clear sports drinks, black coffee, or clear soda. DO NOT drink any milk, creamer, or alcohol. * Your surgeon's office may have provided additional instructions or restrictions. Please follow those instructions. * You may brush your teeth and rinse your mouth out. * Do not glue your dentures. * Do not wear jewelry, body piercings, makeup, hairpins, false eyelashes or contact lenses to the hospital. * Leave any valuables at home or with your family. * If you are going to be admitted after surgery at [facility], COVID testing may be performed on the day of surgery, even if you are up to date on your COVID-19 vaccine. * If having surgery at [facility], you may want to bring a credit card if you want to use our Mobile Pharmacy for your discharge medications. Mobile pharmacy is not available at [facility], the Orthopedic Center, or the [place] [facility]. Outpatient Surgery: * You must have a responsible adult drive you home and stay with you for 24 hours after your surgery * You cannot be alone at home or in a hotel * Please call your surgeon's office if you do not have someone to drive you home and/or stay with you after surgery * Please bring any items you may need to spend the night in the hospital. Sometimes patients need to be cared for in the hospital overnight. If you have Diabetes: * Your diabetic medicines may change if you are doing a bowel prep before surgery. * Do not take any of your diabetic pills while you are doing a bowel prep. * You may also need less insulin than usual. * If you use insulin and are placed on a liquid diet, be sure to drink some liquids that contain sugar. * If your blood sugar is low before you come to the hospital, drink a small amount of sugar water or clear juice like apple or cranberry juice. DO NOT drink orange or pineapple juice. These are not clear liquids. * If you take insulin be sure to read the Medicine Instructions. * Please call your surgeon and/or the CPAP Clinic if you have any questions. Instructions For Your Medications: Pre-Surgery Instructions: Medication Instructions abiraterone (ZYTIGA) 250 mg tablet Prescribing physician will instruct you on this medication albuterol HFA (PROVENTIL HFA,VENTOLIN HFA,PROAIR HFA) 90 mcg/actuation inhaler Take on day of surgery if needed carvediloL (COREG) 25 mg tablet Take morning of surgery chlorthalidone 25 mg tablet Don't take on day of surgery dorzolamide-timoloL (COSOPT) 22.3-6.8 mg/mL ophthalmic solution Surgeon's office will instruct you on this medication. insulin glargine (LANTUS) 100 unit/mL (3 mL) pen for injection Take 22 units SQ (80% of usual dose)night before surgery Januvia 25 mg tablet Don't take on day of surgery lisinopriL (PRINIVIL,ZESTRIL) 20 mg tablet Take morning of surgery moxifloxacin (VIGAMOX) 0.5 % ophthalmic solution Surgeon's office will instruct you on this medication. NovoLOG 100 unit/mL (3 mL) pen for injection Don't take on day of surgery oxyCODONE (ROXICODONE) 5 mg immediate release tablet Take on day of surgery if needed pantoprazole DR (PROTONIX) 40 mg EC tablet Take morning of surgery pravastatin (PRAVACHOL) 20 mg tablet Take night before surgery as usual prednisoLONE acetate (PRED FORTE) 1 % ophthalmic suspension Surgeon's office will instruct you on this medication. predniSONE (DELTASONE) 5 mg tablet Take on day of surgery if needed PreviDent 5000 Plus 1.1 % cream Don't take on day of surgery Accu-Chek Fastclix Lancet Drum [facility] Accu-Chek Guide test strips strip ketorolac (ACULAR) 0.5 % ophthalmic solution Surgeon's office will instruct you on this medication. pen needle, diabetic (BD Ultra-Fine Short Pen Needle) 31 gauge x 5/16 needle General Instructions For Medications: * Stop all of these medications 5 days prior to your surgery: excedrin, motrin, advil, ibuprofen, aleve, naproxen, meloxicam, celebrex, celecoxib. For medications that you are instructed to take on the morning of surgery, take the medications with a few sips of water. Stop all of these medications 7-14 days prior to your surgery: Vitamin E, Herbal medicines, Diet Pills If you take aspirin, do not stop taking it unless you were instructed to do so. If you use inhalers, please bring them with you on the day of your procedure. If you have pain, you may take tylenol (acetaminophen). Do not take more than 6 tablets or 3000 mg (3 g) within a 24 period. Call your surgeon and the CPAP clinic if any of the following happens before surgery: Any changes in your health You have a fever You have any signs of an infection (chest, urinary tract or tooth) You have been to the Emergency Room or were in the hospital You have started taking any new medications You have questions about a bowel prep or special diet before surgery You have symptoms of COVID-19 such as a new or worsening cough, shortness of breath, fever, body aches, loss of taste or smell, diarrhea or vomiting, or sore throat. You have a household contact with COVID-19. You test positive for COVID-19. OGENATION OPERATOR * Perioperative Nursing Note - Valencia Whitaker RN - 05/20/2023 2:06 PM HYDROGENATION OPERATOR Center for Preoperative Assessment and Planning Perioperative Nursing Note Telephone Preoperative Evaluation (CAM-SC) - TELEPHONE ONLY, NO PHYSICAL EXAM Date: 05/20/23 This assessment was completed with the patient. Vitals: 05/20/23 1400 Weight: 96.6 kg (213 lb) Height: 179.1 cm (5' 10.5 ) CHEST CIRCUMFERENCE: NA Social History Tobacco Use Smoking Status Former Packs/day: 0.25 Years: 45.00 Additional pack years: 0.00 Total pack years: 11.25 Types: Cigarettes Start date: 1957 Quit date: 2010 Years since quittin.1 Passive exposure: Past Smokeless Tobacco Never Tobacco Comments Smoking History Packs/day: 10 Cigarettes Substance and Sexual Activity Drug Use Yes Frequency: 1.0 times per week Types: Marijuana Alcohol Use Q1: How often do you have a drink containing alcohol?: 2-3 times a week Q2: How many drinks containing alcohol do you have on a typical day when you are drinking?: 1 or 2 Q3: How often do you have six or more drinks on one occasion?: Less than monthly Outpatient Medications Marked as Taking for the 06/09/23 encounter (Hospital Encounter) Medication Sig Dispense Refill abiraterone (ZYTIGA) 250 mg tablet Take 4 tablets (1,000 mg) by mouth daily. Do not eat anything for at least 2 hours before and for at least 1 hour after (Patient taking differently: Take 4 tablets (1,000 mg total) by mouth nightly) 120 tablet 4 albuterol HFA (PROVENTIL HFA,VENTOLIN HFA,PROAIR HFA) 90 mcg/actuation inhaler Inhale 2 puffs every8 (eight) hours as needed for wheezing or shortness of breath carvediloL (COREG) 25 mg tablet Take 1 tablet (25 mg total) by mouth 2 (two) times a day with meals(Patient taking differently: Take 1 tablet (25 mg total) by mouth 2 (two) times a day with meals) 60 tablet 11 chlorthalidone 25 mg tablet Take 1 tablet (25 mg total) by mouth daily (Patient taking differently:Take 1 tablet (25 mg total) by mouth every morning) 90 tablet 3 dorzolamide-timoloL (COSOPT) 22.3-6.8 mg/mL ophthalmic solution Administer [...] mgtotal) by mouth nightly) 30 tablet 11 lisinopriL (PRINIVIL,ZESTRIL) 20 mg tablet Take 1.5 tablets (30 mg total) by mouth daily (Patient taking differently: Take 1.5 tablets (30 mg total) by mouth every morning) 135 tablet 3 moxifloxacin (VIGAMOX) 0.5 % ophthalmic solution Instill 1 drop into surgical eye three times dailystarting two days before surgery (Patient taking differently: Administer 1 drop into the left eye 3(three) times a day Instill 1 drop into surgical eye three times daily starting two days before surgery) 3 mL 1 NovoLOG 100 unit/mL (3 mL) pen for [...] 6 (six) hours as needed for pain (Patient taking differently: Take 1 tablet (5 mg total) by mouth every 6 (six) hours as needed for pain) [address] (PROTONIX) 40 mg EC tablet TAKE 1 TABLET(40 MG) BY MOUTH DAILY (Patient taking differently: Take 1 tablet (40 mg total) by mouth every morning) 90 tablet 1 pravastatin (PRAVACHOL) 20 mg tablet TAKE 1 TABLET BY MOUTH EVERY DAY (Patient taking differently: Take 1 tablet (20 mg total) by mouth nightly) 90 tablet 3 prednisoLONE acetate (PRED FORTE) 1 % ophthalmic suspension Instill 1 drop into surgical eye three times daily starting after surgery (Patient taking differently: Administer 1 drop into the left eye 3 (three) times a day Instill 1 drop into surgical eye three times daily starting after surgery) 5 mL 1 predniSONE (DELTASONE) 5 mg tablet Take 1 tablet (5 mg) by mouth two times a day (Patient taking differently: Take 1 tablet (5 mg) by mouth 2 (two) times a day) 60 tablet 9 PreviDent 5000 Plus 1.1 % cream Apply topically nightly Implants Type Not Specified [employer] Lens Iol Cna0t0.200 [facility] Aut[employer] Cna0t0.200 - [id number] - [id number] - Implanted (Left) Eye Inventory item: [employer] Lens Iol CNA0t0.200 [facility] [employer] CNA0T0.200 Model/Catnumber: CNA0T0.200 Serial number: [id number] Podiatry Teacher: [employer] Device identifier: [id number] Device identifier type: GS1 As of 05/19/2023 Status: Implanted SKIN Piercings Remaining: No Wound (LDAs) Type of Wound (LDA): (denies) SCREENINGS Brit index score: 85 NUTRITION PATIENT CARE PLANNING Advance Directives (For Healthcare) Have you reviewed your Advance Directive and is it valid for this stay?: Not applicable Advance Directive: Patient does not have advance directive, Patient refused information Information Provided on Healthcare Directives: No Pre-existing DNR/DNI Order: No Patient Requests Assistance: No Communication/Top Precipitator Operator Needs Communication Needs: None Assistive Devices/DME: Walker (Rollator for balance) Hearing - Right Ear: Functional Hearing - Left Ear: Functional Discharge Planning Type of Residence: Private residence Living Arrangements: Spouse/significant other Support Systems: Spouse/significant other Assistance Needed: His will drive him and help care for him after surgery. Patient expects to be discharged to:: Private residence REPORT WRITER NO ADDITIONAL COMMENTS/ FOLLOW UP OGENATION OPERATOR * Pre-Procedure Instructions - Valencia Whitaker RN - 05/20/2023 2:05 PM HYDROGENATION OPERATOR CENTER FOR PREOPERATIVE ASSESSMENT AND PLANNING (CPAP) PRE-SURGICAL NURSING INSTRUCTIONS Telephone Assessment General Information Discussed with Patient: Surgery location provided to patient. Arrival time and surgical time will be provided to the patient by their surgeon. You should wear clothing that is clean, loose, comfortable and easy to get in and out of on the dayof surgery. You should remove nail coverings, artificial nails and nail qatari prior to the day of surgery. You should leave your valuables and any jewelry at home. No metal or piercings are allowed in the operating room. You should bring your insurance card, a photo ID (example: Echocardiograph Tech's License) and a method of payment for any insurance copay, deductible or copay for discharge medications. You should bring a complete, up-to-date, list of all your medications on the day of surgery, including any over the counter medications or supplements you may take. Please note on your medication list, the last date & time you took each medication. The healthcare team, on the day of surgery, will ask for this information. You should bring your Advanced Directive and/or Living Will with you on the day of surgery if you have not verified a copy is already in your Epic Chart. If you are having surgery at [facility], please arrive on the day of surgery with the name and phone number of your local 24 hour pharmacy. Due to evening discharges, your routine pharmacy may be closed. In order to obtain your prescriptions that evening, your surgeon may need to send prescriptions to this pharmacy or have you take prescriptions to this pharmacy when you are discharged. Without this information, you may not be able to obtain your prescriptions that evening. Eye Surgery Process for Patients: Before the surgery, you will be asked to change into a gown. As you get ready for your surgery, your nurse will ask you questions about your medical history andreview your medications with you. An IV will be placed so that we may administer medication to keep you comfortable. You will meet your surgical team. You will be taken by stretcher to the operating room for your surgery. After your surgery, you will come to the recovery area. A Fall Risk band will be placed on your arm to remind you that you are at higher risk for falling after having eye surgery. You may remove this band after 24 hours. Before you leave, your discharge team will review your medications with you and any special instructions. A Guide for Patients Having Surgery: Your Pathway to Excellent Care OUR GOAL IS TO PROVIDE YOU WITH EXCELLENT CARE Use this guide to learn about what you can do before, during and after surgery to help your recovery. You are the most important person on your health care team. By becoming informed and involved, you can contribute to the success of your surgery. If your surgeon's directions are different than those in this guide, talk with your nurse or surgeon to confirm the information. It is important that you understand how to take care of yourself at home after surgery. Be sure to bring this guide with you on the day of surgery and take it home with you after surgery. Write down questions for your nurse or surgeon on the last page of this booklet. Important pages to be reviewed BEFORE surgery: Page 1: QR codes for Surgery Center maps Page 3: Types of Anesthesia Page 5: Tips for the day & night before surgery Page 6: When to stop eating BEFORE surgery and examples of clear liquids Page 7-10: Preventing Infection: Chlorhexidine Gluconate (CHG) Bathing Instructions You may access A Guide for Patients Having Surgery: Your Pathway to Excellent Care by the followinglink: [email or web address] How To Prepare Your Skin For Surgery Below is the Pre-Surgical Bathing Protocol you should follow for your surgery. If your surgeon provides you different bathing instructions, please follow your surgeon's orders. Normal Bathing: Bathe with regular soap the night before and/or day of surgery. Normal Bathing Protocol Bathe with your normal soap the night before and/or the morning of surgery. Wear clean clothes or pajamas to sleep in. After showering DO NOT put on deodorant, hair products, conditioners, lotions, creams, powders, Vaseline or any non-essential products. Remove nail coverings, artificial nails and nail qatari. Place clean linens on your bed the night before surgery. Shaving: You may shave your face, legs and underarms during your evening shower. Avoid shaving on the day of surgery. Travel/Exposure Screening: Travel Screening Have you traveled outside the [place] in the last 6 months?: No Exposure Screening Have you been exposed to anyone who is sick in the last 30 days?: No Have you been exposed to or tested positive for COVID-19 within the last 10 days?: No Infectious Disease Screening Are you having any of the following:: None As of 02/03/2022 any COVID TESTING required for surgery will be set up by your surgeon's office. Please reach out to your surgeon's office if you develop any COVID symptoms, test positive for COVID or are exposed to a COVID positive person. If you have questions, please call the [facility] Staff at [phone], Wednesday-Wednesday 8am-4:30pm. All patients should read the below section: COVID 19 Updates & Visitor Policy: Please access [email or web address] for the most updated information. Information on [facility]: Please view [email or web address] (Patient & Visitor Information) for additional details regarding Advanced Directive forms, AWARE, directions, parking information, lodging, Internet access, dining and more. Information on [facility] or [facility] ([facility]): Please view [email or web address] (Patient and Visitor Information) for parking/directions and more. For MyChart information, to activate account or password recovery, please go to [email or web address] or call [phone] (toll-free: [phone]), Wed- Wednesday 8am-5pm. Information for Suicide Prevention: National Suicide Prevention Lifeline (9-944- 767-ZKTI (0590)) or call or text 093. Chat resources: [email or web address]. Surgery Times: For patients having surgery @ [facility] or [facility] ([facility]), if your surgeon's office has not notified you of your surgery time by NOON THE BUSINESS DAY BEFORE your surgery, please call [phone] and ask for your surgeon's office Dr. Foley. [facility] ([facility]) does not provide arrival times for the day of surgery or provide the duration of surgery. This information is provided by your surgeon'soffice or by the center where you are having surgery. We appreciate your understanding. OGENATION OPERATOR documented in this encounter Plan of [...] Chronic Care Management No change(03/23 1:47 PM HYDROGENATION OPERATOR) No Ingrid Oden, SHEA Note: Problem: Chronic Pain Goals: 1. Minimize further functional decline 2. Maximize quality of life 3. Control pain Strategies: - Activity/exercise program recommendation - Conservative stepwise pain medicine strategy with multi-disciplinary approach - Recommend healthy lifestyle strategies and compensatory methods as needed documented as of this encounter Procedures Procedure Name Priority Date/Time Associated Diagnosis Comments EXTRACTION CATARACT - PHACOEMULSIFICATION AND LENS IMPLANT 06/09/2023 8:30 AM HYDROGENATION OPERATOR Combined forms of age-related cataract of both eyes POCT GLUCOSE DEVICE Routine 06/09/2023 7 :52 AM HYDROGENATION OPERATOR documented in this encounter Results * POCT glucose (06/09/2023 7:52 AM HYDROGENATION OPERATOR) Glucose, POC 139 70 - 199 mg/dL Blood 06/09/2023 7:52 AM HYDROGENATION OPERATOR 06/09/2023 7:52 AM HYDROGENATION OPERATOR us Higinio Foley MD LAB POCT ORDERABLES - DEVIC E Final Result [facility] [place] [address] documented in this encounter Visit Diagnoses Diagnosis Combined forms of age-related cataract of right eye- Primary Encounter for preadmission testing documented in this encounter Admitting Diagnoses Diagnosis Combined forms of age-related cataract of both eyes documented in this encounter Administered Medications Inactive Administered Medications - up to 3 most recent administrations Medication Order MAR Action Action Date Dose Rate Site Carrier Fluids for Secondary Infusion - 0.9% Sodium Chloride 30 mL, intravenous, As needed, For priming tubing and/or flushing, Starting on Wed06/09/23 at 0737, Pre-Op, 0-250 ml/hr to flush line after IV infusions when no maintenance IV ordered. Infuse 30mL at the same rate as the secondary infusion. Run as primary IV, not intended for KVO.Indications:Encounter for preadmission testing dilating cocktail ophthalmic solution 0.3 mL 0.3 mL, right eye, Once, On Wed06/09/23 at 0815, For 1 dose, Pre-Op/Floor, Ingredients per 0.3 mL Lidocaine 2% jelly 0.214 mL Phenylephrine 10% ophth drops 0.021 mL Cyclopentolate 1% ophth drops 0.021 mL Tropicamide 1% ophth drops 0.021 mL Ketorolac 0.5% ophth drops 0.021 mL, Indications: Mydriasis During Ocular SurgeryIndications:Mydriasis During Ocular Surgery Given 06/09/2023 7:54 AM HYDROGENATION OPERATOR 0.3 mL Lactated Ringer's (LR) infusion 30 mL/hr, intravenous, Continuous, Starting on Wed06/09/23 at 0815, Pre-OpIndications:Encounter for preadmission testing lidocaine 1%, BUPivacaine 0.375% preservative free ophthalmic solution (total volume 5 mL) 5 mL, periocular RIGHT , Once, On Wed06/09/23 at 0815, For 1 dose, Pre-Op/Floor, FACIAL Given 06/09/2023 8:30 AM HYDROGENATION OPERATOR 5 mL lidocaine 1%, BUPivacaine 0.375% preservative free ophthalmic solution (total volume 5 mL) 5 mL, periocular RIGHT , Once, On Wed06/09/23 at 0815, For 1 dose, Pre-Op/Floor, RETROBULBAR Given 06/09/2023 8:29 AM HYDROGENATION OPERATOR 5 mL sodium chloride 0.9% flush 0.5-20 mL 0.5-20 mL, intra-catheter, As needed, line care, Starting on Wed06/09/23 at 0737, Pre-Op, Flush volume based on line type and size. Flush before and after each use.Indications:Encounter for preadmission testing documented in this encounter Discontinued Medications Medication Sig Discontinue Reason Start Date End Da te aspirin 81 mg enteric coated tabletIndications:preven tion of thrombosis Take 1 tablet (81 mg total) by mouth every morning Error 05/20/2023 documented as of this encounter Active and Recently Administered Medications Times are shown in HYDROGENATION OPERATOR. Scheduled Medication Order 06/07/2023 06/08/2023 06/09/2023 BSS Plus-lidocaine 0.375%-EPINEPHrine 0.25 mg (Steffi Kelley) preservative free ophthalmic solution (total volume 1 mL) (COMPLETED) 1 mL, intracameral RIGHT, Once, On Wed06/09/23 at 0815, For 1 dose, Intra-Op, Have available in the OR for surgeon administration in the right eye. 0815 (Due)0837 (Give n - Provider: Higinio Foley MD) dilating cocktail ophthalmic solution 0.3 mL (COMPLETED) 0.3 mL, right eye, Once, On Wed06/09/23 at 0815, For 1 dose, Pre-Op/Floor, Ingredients per 0.3 mL Lidocaine 2% jelly 0.214 mL Phenylephrine 10% ophth drops 0.021 mL Cyclopentolate 1% ophth drops 0.021 mL Tropicamide 1% ophth drops 0.021 mL Ketorolac 0.5% ophth drops 0.021 mL, Indications: Mydriasis During Ocular Surgery 0754 (Given - Provid er: Ethan Quintero RN) lidocaine 1%, BUPivacaine 0.375% preservative free ophthalmic solution (total volume 5 mL) (COMPLETED) 5 mL, periocular RIGHT , Once, On Wed06/09/23 at 0815, For 1 dose, Pre-Op/Floor, FACIAL 0830 (Given - Provid er: Norma Jorgensen RN - Comment: given by dr. foley) lidocaine 1%, BUPivacaine 0.375% preservative free ophthalmic solution (total volume 5 mL) (COMPLETED) 5 mL, periocular RIGHT , Once, On Wed06/09/23 at 0815, For 1 dose, Pre-Op/Floor, RETROBULBAR 0829 (Given - Provid er: Norma Jorgensen RN - Comment: given by dr. foley) Continuous Medication Order 06/07/2023 06/08/2023 06/09/2023 Lactated Ringer's (LR) infusion 30 mL/hr, intravenous, Continuous, Starting on Wed06/09/23 at 0815, Pre-Op 0815 (Due) PRN Medication Order 06/07/2023 06/08/2023 06/09/2023 balanced salt soln no.2 irrig. (BSS) intraocular solution (CANCELED) As needed, Starting on Wed06/09/23 at 0837, Intra-Op 0837 (Given - Provid er: Higinio Foley MD) Carrier Fluids for Secondary Infusion - 0.9% Sodium Chloride 30 mL, intravenous, As needed, For priming tubing and/or flushing, Starting on Wed06/09/23 at 0737, Pre-Op, 0-250 ml/hr to flush line after IV infusions when no maintenance IV ordered. Infuse 30mL at the same rate as the secondary infusion. Run as primary IV, not intended for KVO. moxifloxacin (VIGAMOX) 0.5 % ophthalmic solution (CANCELED) As needed, Starting on Wed06/09/23 at 0837, Intra-Op 0837 (Given - Provid er: Higinio Foley MD) povidone-iodine (BETADINE PREP) 5 % ophthalmic solution (CANCELED) As needed, Starting on Wed06/09/23 at 0838, Intra-Op 0838 (Given - Provid er: Higinio Foley MD) prednisoLONE acetate (PRED FORTE) 1 % ophthalmic suspension (CANCELED) As needed, Starting on Wed06/09/23 at 0838, Intra-Op 0838 (Given - Provid er: Higinio Foley MD) sodium chloride 0.9% flush 0.5-20 mL 0.5-20 mL, intra-catheter, As needed, line care, Starting on Wed06/09/23 at 0737, Pre-Op, Flush volume based on line type and size. Flush before and after each use. documented in this encounter Orders Medications Ordered That Adiel ht Not Have Been Administered Count Last Ordered Date First Ordered Date balanced salt soln no.2 irri g. (BSS) intraocular solution 1 06/09/2023 BSS Plus-lidocaine 0.375%-EP INEPHrine 0.25 mg (Shugar Kelley) preservative free ophthalmic solution (total volume 1 mL) 1 06/09/2023 Carrier Fluids for Secondary Infusion - 0.9% Sodium Chloride 1 06/09/2023 Lactated Ringer's (LR) infusion 1 moxifloxacin (VIGAMOX) 0.5 % ophthalmic solution 1 06/09/2023 povidone-iodine (BETADINE OH EP) 5 % ophthalmic solution 1 06/09/2023 prednisoLONE acetate (PRED F ORTE) 1 % ophthalmic suspension 1 06/09/2023 sodium chloride 0.9% flush 0.5-20 mL 05/14 documented in this encounter Care Teams Diazo Technician Relationship Specialty Start Date End Date Kraig Ching MD [address] [facility] [address] [place] [address] PCP - General 07/10/16 PicGautam serrato MD [address] [facility] [address] [place] [address] Medical Oncologist/Candy Maker Medical Oncology 08/18/18 Tramaine Roe MD [address] [facility] [address] [place] [address] Referring Physician Urology 08/18/18 Sukhwinder Uribe MD [id number] [place] [address] Consulting Physician Urology 08/18/18 Shay Guillermo MD [address] [facility] [address] [place] [address] Referring Physician Urology 08/18/18 Marsha Landis, RN Registered Nurse 11/17/18 documented as of this encounter
--- OUTSIDE RECORDS SUMMARY | 2024-03-31 04:53 | XMS_ITS | Encounter Summary ---
Author Organization [facility] Address [address] [place] [address] Phone Care Team Providers Care Saw Edge Fuser Circular Name Role Phone Kraig Ching MD Primary Care Provider Gautam Cope MD Unavailable Tramaine Roe MD Unavailable [phone] Sukhwinder Uribe MD Unavailable [phone] Shay Guillermo MD Unavailable [phone] Marsha Landis RN Unavailable Unavailab le Encounter Details Date Type Department Care Team (Latest Contact Info) Description 04/11/2023 Orders Only [facility] Scanning, Provider Social History Tobacco Use Types Packs/Day Years Used Date Smoking Tobacco: Former Cigarettes 0.3 52 1 958 - 2009 Smokeless Tobacco: Never Comments:Smoking History Pac ks/day: [...] on file 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 INSOLVENCY CONSULTANT Gender Identity Not on file Sexual Orientation Not on file documented as of this encounter Plan of Treatment Scheduled Orders Name Type Priority Associated Diagnoses Orde r Schedule CARDIOLOGY DOCUMENT SCAN Cardiac Services Ordered: 04/11/2023 documented as of this encounter Goals Goal [...] Chronic Care Management No change(03/23 1:47 PM INSOLVENCY CONSULTANT) No Ingrid Oden, RN Note: Problem: Chronic Pain Goals: 1. Minimize further functional decline 2. Maximize quality of life 3. Control pain Strategies: - Activity/exercise program recommendation - Conservative stepwise pain medicine strategy with multi-disciplinary approach - Recommend healthy lifestyle strategies and compensatory methods as needed documented as of this encounter Visit Diagnoses Not on filedocumented in this encounter Care Teams Saw Edge Fuser Circular Relationship Specialty Start Date End Date Kraig Ching MD [address] [place] [address] PCP - General 07/10/16 Gautam Cope MD [address] [place] [address] Medical Oncologist/[place] Guide Medical Oncology 08/18/18 Tramaine Roe MD [address] [place] [address] Referring Physician Urology 08/18/18 Sukhwinder Uribe MD [address] [place] [address] Consulting Physician Urology 08/18/18 Shay Guillermo MD [address] [place] [address] Referring Physician Urology 08/18/18 Marsha Landis, RN Registered Nurse 11/17/18 documented as of this encounter
--- OUTSIDE RECORDS SUMMARY | 2024-03-31 04:53 | XMS_ITS | Encounter Summary ---
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 Hospital Encounter [facility] Advanced Medicine [address] [place] [address] Higinio Foley MD [address] [facility] [address] [place] [address] Combined forms of age-related cataract of both eyes (Primary Dx) Discharge Disposition: Discharge to home or self [...] on file 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 MINIATURE SET DESIGNER Gender Identity Not on file Sexual Orientation Not on file documented as of this encounter Last Filed Vital Signs Vital Sign Reading Time Taken Comments Blood Pressure 150/61 05/19/2023 9:40 AM MINIATURE SET DESIGNER Pulse 67 05/19/2023 9:51 AM MINIATURE SET DESIGNER Temperature 36.2 ??C (97.2 ??F) 05/19/2023 9:30 AM CS T Respiratory Rate 18 05/19/2023 9:50 AM MINIATURE SET DESIGNER Oxygen Saturation 97% 05/19/2023 9:50 AM MINIATURE SET DESIGNER Inhaled Oxygen Concentration - - Weight 96.6 kg (213 lb) 04/30/2023 12:15 PM MINIATURE SET DESIGNER Height 179.1 cm (5' 10.5 ) 04/30/2023 12:[address] Body Mass Index 30.13 04/30/2023 12:15 PM MINIATURE SET DESIGNER documented in this encounter Discharge Instructions * Discharge Instructions* Higinio Foley MD - 05/19/2023 9:32 AM MINIATURE SET DESIGNER POST- OPERATIVE INSTRUCTIONS 1. Lie on the [...] NOT NORMAL, and should be reported immediately. ATURE SET DESIGNER * Attachments The following attachments cannot be sent through Care Everywhere. * [facility] TO EXCELLENT CARE AFTER SURGERY documented [...] Lancet Drum misc USE DIRECTED 204 each 1 11/17/2022 4 aspirin 81 mg enteric coated tabletIndication s:prevention of thrombosis Take 1 tablet (81 mg total) by mouth every morning 4 blood glucose diagnostic (Accu-Chek Guide test strips) strip USE DIRECTED TO TEST BLOOD SUGAR TWICE DAILY. 200 strip 1 11/09/2022 4 carvediloL (COREG) 25 mg tabletIndication s:CKD (chronic kidney disease) stage 3, GFR 30-59 ml/min ([facility]) Take 1 tablet (25 mg total) by [...] disease, without long-term current use of insulin ([facility]) TAKE 1 TABLET BY MOUTH DAILY 30 [...] MG) BY MOUTH DAILY 90 tablet 1 12/05/2022 4 pravastatin (PRAVACHOL) 20 mg tablet TAKE [...] s Discharge to home or self care Car documented in this encounter H&P Notes * Higinio Foley MD - 05/19/2023 8:55 AM CST I have reviewed the H&P, examined the patient, and endorse the findings as written. Plan of Care : Based on the above findings, I consider David Wei to be an acceptable risk for : Procedure(s): EXTRACTION CATARACT - PHACOEMULSIFICATION AND LENS IMPLANT ATURE SET DESIGNER Source Note - Higinio Foley MD - 05/13/2023 4:40 PM MINIATURE SET DESIGNER This patient is a 82 y/o WM presenting for cataract surgery OS. The patient is noticing vision lossaffecting daily activities. POHx - unremarkable PMHx and Rx - see chart Allergies - Atorvastatin Ocular Exam - visual acuity (VA) OS - 20/50 best corrected Lens OS - 3+ NS/central PSC Fundus OS - cup-to-disc ratio (C/D) 0.6 x 0.5, m/v/p - unremarkable Impression: Visually significant nuclear/PSC cataract OS Plan: Proceed with phaco/IOL OS ATURE SET DESIGNER * Higinio Foley MD - 05/13/2023 4:40 PM CST This patient is a 82 y/o WM presenting for cataract surgery OS. The patient is noticing vision lossaffecting daily activities. POHx - unremarkable PMHx and Rx - see chart Allergies - Atorvastatin Ocular Exam - visual acuity (VA) OS - 20/50 best corrected Lens OS - 3+ NS/central PSC Fundus OS - cup-to-disc ratio (C/D) 0.6 x 0.5, m/v/p - unremarkable Impression: Visually significant nuclear/PSC cataract OS Plan: Proceed with phaco/IOL OS ATURE SET DESIGNER documented in this encounter Miscellaneous Notes * Op Note - Higinio Foley MD - 05/19/2023 9:14 AM CST PREOPERATIVE DIAGNOSIS: Cataract Left Eye POSTOPERATIVE DIAGNOSIS: Cataract Left Eye SURGEON: Higinio Foley MD PROCEDURE PERFORMED: Phacoemulsification of cataract with implantation of posterior chamber intraocular lens - Left Eye ANESTHESIA: Local/MAC with facial and retrobulbar injections of a 1:1 mixture of 2% Lidocaine and 0.75% Marcaine COMPLICATIONS: None INDICATIONS: The patient presents with vision loss affecting daily activities. This is associated with significant age-related cataract. The above procedure is being performed to improvethe patient's visual acuity and quality of life. [...] pulsed phacoemulsification power. Total phaco power was 18.55 CDE. The cortex of the lens was then removed using the automated irrigation/aspirationsystem. The posterior capsule was polished to remove residual epithelial cells. The anterior chamber was then reformed with Provisc to open up the capsular bag. A +20.0 D power Wilder model CNA0T0 posterior chamber [...] to outpatient recovery i n good condition. 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 Item Serial No. Trader Fixed Income Lot No. LRB No. Used Action [employer] Lens Iol CNA0t0.200 [employer] CNA0T0.200 - [id number] - [id number] [employer] Lens Iol CNA0t0.200 [employer] CNA0T0.200 [id number] [employer] Left 1 Implanted Blood/Blood Products Transfused: 0 mls Complications: None Condition on Discharge from the operating room was stable Higinio Foley MD Date: 05/19/2023 Time: 9:30 AM No Resident involved on case ATURE SET DESIGNER * Pre-Procedure Instructions - Ladi Vásquez NP - 05/13/2023 5:50 PM CST [facility] CPAP Clinic Location: [facility] The night before your surgery: * Do [...] valuables at home or with your family. Outpatient Surgery: * You must have a responsible adult drive you home and stay with you for 24 hours after your surgery * You cannot be alone at home or in a hotel * Please call your surgeon's office if you do not have someone to drive you home and/or stay with you after surgery If you have Diabetes: * If your blood sugar is low [...] Medication Instructions abiraterone (ZYTIGA) 250 mg tablet Take night prior to procedure per usual schedule Accu-Chek Fastclix Lancet Drum misc Take on day of surgery if needed albuterol HFA (PROVENTIL HFA,VENTOLIN HFA,PROAIR HFA) 90 mcg/actuation inhaler Take on day of surgery if needed aspirin 81 mg enteric coated tablet Per surgeon instructions blood glucose diagnostic (Accu-Chek Guide test strips) strip Take on day of surgery if needed carvediloL (COREG) 25 mg tablet Take morning of surgery chlorthalidone 25 mg tablet Don't take on day of surgery dorzolamide-timoloL (COSOPT) 22.3-6.8 mg/mL ophthalmic solution Per surgeon instructions insulin glargine (LANTUS) 100 unit/mL (3 mL) pen for injection Take 22 units the night prior to surgery ( 80% of usual dose) Januvia 25 mg tablet Take night prior to procedure per usual schedule ketorolac (ACULAR) 0.5 % ophthalmic solution Per surgeon instructions lisinopriL (PRINIVIL,ZESTRIL) 20 mg tablet Take morning of surgery moxifloxacin (VIGAMOX) 0.5 % ophthalmic solution Per surgeon instructions oxyCODONE (ROXICODONE) 5 mg immediate release tablet Take on day of surgery if needed pantoprazole DR (PROTONIX) 40 mg EC tablet Take morning of surgery pen needle, diabetic (BD Ultra-Fine Short Pen Needle) 31 gauge x 5/16 needle pravastatin (PRAVACHOL) 20 mg tablet Take night prior to procedure per usual schedule prednisoLONE acetate (PRED FORTE) 1 % ophthalmic suspension Per surgeon instructions predniSONE (DELTASONE) 5 mg tablet Per usual schedule PreviDent 5000 Plus 1.1 % cream Don't take on day of surgery NovoLOG 100 unit/mL (3 mL) pen for injection Don't take on day of surgery Instructions For Your Insulin: Instructions for your GLARGINE (LANTUS / TOUJEO / BASAGLAR) insulin: take 22 units the night beforesurgery and take 0 units the morning of your surgery Do NOT take SHORT-ACTING insulin (ASPART / NOVOLOG / FIASP, LISPRO / HUMALOG) on the day of surgery. Make sure you check your blood sugar regularly. If your blood sugar is too low, you can drink cleardrinks like apple juice or sugar water. General Instructions For Medications: * Stop all [...] E, Herbal medicines, Diet Pills If you have pain, you may take [...] with COVID-19. You test positive for COVID-19. ATURE SET DESIGNER * Perioperative Nursing Note - Rafaela Roe RN - 04/30/2023 12:24 PM MINIATURE SET DESIGNER [facility] Preoperative Assessment [facility] Planning Perioperative Nursing Note Telephone Preoperative Evaluation ([facility]) - TELEPHONE ONLY, NO PHYSICAL EXAM Date: 04/30/23 This assessment was completed with the patient. Vitals: 04/30/23 1215 Weight: 96.6 kg (213 lb) Height: 179.1 cm (5' 10.5 ) CHEST CIRCUMFERENCE: NA Social History Tobacco Use Smoking Status Former Packs/day: 0.25 Years: 45.00 Additional pack years: 0.00 Total pack years: 11.25 Types: Cigarettes Start date: 1957 Quit date: 2009 Years since quittin.0 Smokeless Tobacco Never Tobacco Comments Smoking History [...] six or more drinks on one occasion?: Never Current Facility-Administered Medications for the 05/19/23 encounter (Hospital Encounter) Medication Dose Route Frequency Provider Last Rate Last Admin [COMPLETED] perflutren protein-a (OPTISON) 3 mL in sodium chloride 0.9% 8 mL syringe 1-8 mL intravenous Once in imaging Alexandro Albert MD 2 mL at 04/29/23 1238 Outpatient Medications Marked as Taking for the 05/19/23 encounter (Hospital Encounter) Medication Sig Dispense Refill abiraterone (ZYTIGA) 250 mg tablet Take 4 tablets (1,000 mg) by mouth daily. Do not eat anything for at least 2 hours before and for at least 1 hour after (Patient taking differently: Take 4 tablets (1,000 mg total) by mouth nightly) 120 tablet 4 Accu-Chek Fastclix Lancet Drum misc USE DIRECTED 204 each 1 albuterol HFA (PROVENTIL HFA,VENTOLIN HFA,PROAIR HFA) 90 mcg/actuation inhaler Inhale 2 puffs every8 (eight) hours as needed for wheezing or shortness of breath aspirin 81 mg enteric coated tablet Take 1 tablet (81 mg total) by mouth every morning blood glucose diagnostic (Accu-Chek Guide test strips) strip USE DIRECTED TO TEST BLOOD SUGAR TWICE DAILY. 200 strip 1 carvediloL (COREG) 25 mg tablet Take 1 [...] (two) times a day)10 mL 11 insulin aspart (NovoLOG) 100 unit/mL (3 mL) pen for injection ADMINISTER 8 UNITS UNDER THE SKIN THREE TIMES DAILY BEFORE MEALS (Patient taking differently: Inject under the skin 3 (three) times a daywith meals Sliding scale) 3 mL 11 insulin glargine (LANTUS) 100 unit/mL (3 mL) pen for injection ADMINISTER 28 UNITS UNDER THE SKIN DAILY (Patient taking differently: Inject 28 Units under the skin nightly ADMINISTER 28 UNITS UNDER THE SKIN DAILY) 9 mL 11 Januvia 25 mg tablet TAKE 1 TABLET BY MOUTH DAILY (Patient taking differently: Take 1 tablet (25 mgtotal) by mouth nightly) 30 tablet 11 ketorolac (ACULAR) 0.5 % ophthalmic solution Instill one drop into surgical eye three time daily starting two days pre op (Patient taking differently: Administer 1 drop into the left eye 3 (three) times a day Instill one drop into surgical eye three time daily starting two days pre op) 5 mL 1 lisinopriL (PRINIVIL,ZESTRIL) 20 mg tablet Take 1.5 [...] two days before surgery) 3 mL 1 oxyCODONE (ROXICODONE) 5 mg immediate release tablet Take 1 tablet (5 mg total) by mouth every 6 (six) hours as needed for pain [address] (PROTONIX) 40 mg EC tablet TAKE 1 TABLET(40 MG) BY MOUTH DAILY (Patient taking differently: Take 1 tablet (40 mg total) by mouth every morning) 90 tablet 1 pen needle, diabetic (BD Ultra-Fine Short Pen Needle) 31 gauge x 5/16 needle USE TO INJECT INSULIN4 TIMES EVERY DAY DIRECTED 400 each 11 pravastatin (PRAVACHOL) 20 mg tablet TAKE 1 [...] Plus 1.1 % cream Apply topically nightly [DISCONTINUED] gabapentin (NEURONTIN) 100 mg capsule Take 1 capsule (100 mg total) by mouth 3 (three) times a day 270 capsule 3 [DISCONTINUED] latanoprost (XALATAN) 0.005 % ophthalmic solution Administer 1 drop into both eyes nightly Implants No active implants to display in this view. SKIN Piercings Remaining: No Wound (LDAs) Type of Wound (LDA): (Denies) SCREENINGS Brit index score: 90 PATIENT CARE PLANNING Advance Directives (For Healthcare) Have you reviewed your Advance Directive and is it valid for this stay?: Not applicable Advance Directive: Patient does not have advance directive, Patient refused information Information Provided on Healthcare Directives: No Assistive Devices/DME: Walker Hearing - Right Ear: Functional Hearing - Left Ear: Functional Discharge Planning Type of Residence: Private residence Living Arrangements: Spouse/significant other Support Systems: Spouse/significant other Patient expects to be discharged to:: Private residence (Manager Technical Services and animal care giver: ) [employer] INSTRU[employer] NO ADDITIONAL COMMENTS/ FOLLOW UP ATURE SET DESIGNER * Pre-Procedure Instructions - Rafaela Roe RN - 04/30/2023 12:21 PM MINIATURE SET DESIGNER [facility] (CPAP) [...] remove nail coverings, artificial nails and nail togolese prior to the day of surgery. You should leave your valuables and any jewelry at home. No metal or piercings are allowed in the operating room. You should bring your insurance card, a photo ID (example: Manager Technical Services's License) and a method of payment for [...] Chart. If you are having surgery at [facility], please arrive on the day of surgery [...] Remove nail coverings, artificial nails and nail togolese. Place clean linens on your bed the [...] questions, please call the CPAP Staff at [phone], Wednesday-Wednesday 8am-4:30pm. All patients should read the below section: COVID 19 Updates & Visitor Policy: Please access [email or web address] for the most updated information. Information on [facility]: Please view [email or web address] (Patient & Visitor Information) for additional details regarding Advanced Directive forms, AWARE, directions, parking information, lodging, Internet access, dining and more. Information on [facility] or [facility] [place] ([facility]): Please view [email or web address] (Patient and Visitor Information) for parking/directions and more. For MyChart information, to activate account or password recovery, please go to [email or web address] or call [phone] (toll-free: [phone]), Wed- Wednesday 8am-5pm. Information for Suicide Prevention: National Suicide Prevention Lifeline (0-031- 237-FMJO (7629)) or call or text [employer] Chat resources: [email or web address] Please. Surgery Times: For patients having surgery @ [facility] or [facility] [place] ([facility]), if your surgeon's office has not notified you of your surgery time by NOON THE BUSINESS DAY BEFORE your surgery, please call [phone] and ask for your surgeon's office Dr. Foley. The [facility] Planning ([facility]) does not provide arrival times for the day of surgery or provide the duration of surgery. This information is provided by your surgeon'soffice or by the center where you are having surgery. We appreciate your understanding. ATURE SET DESIGNER documented in this encounter Plan of Treatment [...] Chronic Care Management No change(03/23 1:47 PM MINIATURE SET DESIGNER) No Ingrid Oden, RN Note: Problem: Chronic Pain Goals: 1. Minimize further functional decline 2. Maximize quality of life 3. Control pain Strategies: - Activity/exercise program recommendation - Conservative stepwise pain medicine strategy with multi-disciplinary approach - Recommend healthy lifestyle strategies and compensatory methods as needed documented as of this encounter Procedures Procedure Name Priority Date/Time Associated Diagnosis Comments POCT GLUCOSE DEVICE Routine 05/19/2023 9 :36 AM MINIATURE SET DESIGNER EXTRACTION CATARACT - PHACOEMULSIFICATION AND LENS IMPLANT 05/19/2023 9:06 AM MINIATURE SET DESIGNER Combined forms of age-related cataract of both eyes POCT GLUCOSE DEVICE Routine 05/19/2023 8 :20 AM MINIATURE SET DESIGNER documented in this encounter Results * POCT glucose (05/19/2023 9:36 AM MINIATURE SET DESIGNER) Glucose, POC 114 70 - 199 mg/dL Glucose comment 1 Glu2: RN/MD Notified [facility] Blood 05/19/2023 9:36 AM MINIATURE SET DESIGNER 05/19/2023 9:36 AM MINIATURE SET DESIGNER Higinio Foley MD LAB POCT ORDERABLES - DEVIC E Final Result Performing Organization Address [facility] de Phone Number [facility] [place] [place] [address] * POCT glucose (05/19/2023 8:20 AM MINIATURE SET DESIGNER) Glucose, POC 113 70 - 199 mg/dL Blood 05/19/2023 8:20 AM MINIATURE SET DESIGNER 05/19/2023 8:20 AM MINIATURE SET DESIGNER Higinio Foley MD LAB POCT ORDERABLES - DEVIC E Final Result Performing Organization Address [facility] de Phone Number [facility] [place] [place] [address] documented in this encounter Visit Diagnoses Diagnosis Combined forms of age-related cataract of both eyes Arrhythmia Unspecified cardiac dysrhythmia documented in this encounter Admitting Diagnoses Diagnosis Combined forms of age-related cataract of both eyes documented in this encounter Administered Medications Inactive Administered Medications - up to 3 most recent administrations Medication Order MAR Action Action Date Dose Rate Site Carrier Fluids for Secondary Infusion - 0.9% Sodium Chloride 30 mL, intravenous, As needed, For priming tubing and/or flushing, Starting on Wed05/19/23 at 0812, Pre-Op, 0-250 ml/hr to flush line after IV infusions when no maintenance IV ordered. Infuse 30mL at the same rate as the secondary infusion. Run as primary IV, not intended for KVO. dilating cocktail ophthalmic solution 0.3 mL 0.3 mL, left eye, Once, On Wed05/19/23 at 0845, For 1 dose, Pre-Op/Floor, Ingredients per 0.3 mL Lidocaine 2% jelly 0.214 mL Phenylephrine 10% ophth drops 0.021 mL Cyclopentolate 1% ophth drops 0.021 mL Tropicamide 1% ophth drops 0.021 mL Ketorolac 0.5% ophth drops 0.021 mL, Indications: Mydriasis During Ocular SurgeryIndications:Mydriasis During Ocular Surgery Given 05/19/2023 8:31 AM MINIATURE SET DESIGNER 0.3 mL Lactated Ringer's (LR) infusion 30 mL/hr, intravenous, Continuous, Starting on Wed05/19/23 at 0845, Pre-Op lidocaine 1%, BUPivacaine 0.375% preservative free ophthalmic solution (total volume 5 mL) 5 mL, periocular LEFT, Once, On Wed05/19/23 at 0845, For 1 dose, Pre-Op/Floor, RETROBULBAR Given 05/19/2023 9:00 AM MINIATURE SET DESIGNER 5 mL lidocaine 1%, BUPivacaine 0.375% preservative free ophthalmic solution (total volume 5 mL) 5 mL, periocular LEFT, Once, On Wed05/19/23 at 0845, For 1 dose, Pre-Op/Floor, FACIAL Given 05/19/2023 9:00 AM MINIATURE SET DESIGNER 5 mL sodium chloride 0.9% flush 0.5-20 mL 0.5-20 mL, intra-catheter, As needed, line care, Starting on Wed05/19/23 at 0812, Pre-Op, Flush volume based on line type and size. Flush before and after each use. documented in this encounter Discontinued Medications Medication Sig Discontinue Reason Start Date End Da te gabapentin (NEURONTIN) 100 mg capsuleIndications:Dawna ropathic Pain Take 1 capsule (100 mg total) by mouth 3 (three) times a day Therapy completed 03/23/2023 04/30/2023 latanoprost (XALATAN) 0.005 % ophthalmic solution Administer 1 drop into both eyes nightly Therapy completed 04/12/2023 04/30/2023 documented as of this encounter Historical Medications * This list may reflect changes made after this encounter. latanoprost (XALATAN) 0.005 % ophthalmic solution Administer 1 drop into both eyes nightly 04/12/2023 added in this encounter Active and Recently Administered Medications Times are shown in MINIATURE SET DESIGNER. Scheduled Medication Order 05/17/2023 05/18/2023 05/19/2023 BSS Plus-lidocaine 0.375%-EPINEPHrine 0.25 mg (Steffi Kelley) preservative free ophthalmic solution (total volume 1 mL) (COMPLETED) 1 mL, intracameral LEFT, Once, On Wed05/19/23 at 0930, For 1 dose, Intra-Op, Have available in the OR for surgeon administration in the left eye. 900 (Given - Provid er: Higinio Foley MD)0930 (Due) dilating cocktail ophthalmic solution 0.3 mL (COMPLETED) 0.3 mL, left eye, Once, On Wed05/19/23 at 0845, For 1 dose, Pre-Op/Floor, Ingredients per 0.3 mL Lidocaine 2% jelly 0.214 mL Phenylephrine 10% ophth drops 0.021 mL Cyclopentolate 1% ophth drops 0.021 mL Tropicamide 1% ophth drops 0.021 mL Ketorolac 0.5% ophth drops 0.021 mL, Indications: Mydriasis During Ocular Surgery 0831 (Given - Provid er: Norma Jorgensen RN) lidocaine 1%, BUPivacaine 0.375% preservative free ophthalmic solution (total volume 5 mL) (COMPLETED) 5 mL, periocular LEFT, Once, On Wed05/19/23 at 0845, For 1 dose, Pre-Op/Floor, RETROBULBAR 0900 (Given - Provid er: Norma Jorgensen RN - Comment: given by dr. foley) lidocaine 1%, BUPivacaine 0.375% preservative free ophthalmic solution (total volume 5 mL) (COMPLETED) 5 mL, periocular LEFT, Once, On Wed05/19/23 at 0845, For 1 dose, Pre-Op/Floor, FACIAL 0900 (Given - Provid er: Norma Jorgensen RN - Comment: given by ) Continuous Medication Order 05/17/2023 05/18/2023 05/19/2023 Lactated Ringer's (LR) infusion 30 mL/hr, intravenous, Continuous, Starting on Wed05/19/23 at 0845, Pre-Op 0845 (Due) Lactated Ringer's (LR) infusion 30 mL/hr, intravenous, Continuous, Starting on Wed05/19/23 at 0900, Pre-Op 0900 (Due) Lactated Ringer's (LR) infusion 125 mL/hr, intravenous, Continuous, Starting on Wed05/19/23 at 1015, Phase I PRN Medication Order 05/17/2023 05/18/2023 05/19/2023 balanced salt soln no.2 irrig. (BSS) intraocular solution (CANCELED) As needed, Starting on Wed05/19/23 at 0901, Intra-Op 0901 (Given - Provid er: Higinio Foley MD) Carrier Fluids for Secondary Infusion - 0.9% Sodium Chloride 30 mL, intravenous, As needed, For priming tubing and/or flushing, Starting on Wed05/19/23 at 0812, Pre-Op, 0-250 ml/hr to flush line after IV infusions when no maintenance IV ordered. Infuse 30mL at the same rate as the secondary infusion. Run as primary IV, not intended for KVO. EPINEPHrine 0.3 mg in balanced salt soln no.2 irrig. (BSS) 500 mL irrigation solution (CANCELED) As needed, Starting on Wed05/19/23 at 0902, Intra-Op 0902 (Given - Provid er: Higinio Foley MD) fentaNYL (SUBLIMAZE) preservative free syringe 25 mcg 25 mcg, intravenous, Every 10 min PRN, 1st line for pain, Starting on Wed05/19/23 at 0933, Phase I, Switch to 2nd line analgesic order if pain is uncontrolled or increasing after 2 doses. Notify Anesthesiologist if total PACU dose reaches 100 mcg and pain score 5/10 or more., Indications: Pain fentaNYL (SUBLIMAZE) preservative free syringe 50 mcg 50 mcg, intravenous, Every 10 min PRN, 2nd line for pain, Starting on Wed05/19/23 at 0933, Phase I, May administer 10 mintes after 2nd dose of 1st line analgesic agent for uncontrolled or increasing pain. Revert to 1st line dose if POSS of 3. Notify Anesthesiologist if total PACU dose reaches 100 mcg and pain score 5/10 or more., Indications: Pain haloperidol (HALDOL) injection 1 mg 1 mg, intravenous, Once as needed, nausea, vomiting, Starting on Wed05/19/23 at 0933, For 1 dose, Phase I, If nausea/vomiting not relieved by ondansetron within 30 minutes or if ondansetron has been given within the last 6 hours. lidocaine PF (XYLOCAINE) 10 mg/mL (1 %) preservative free injection 2-10 mg 2-10 mg (0.2-1 mL), other, Once as needed, pain with IV placement, Starting on Wed05/19/23 at 0825, For 1 dose, Pre-Op, Administer volume needed to infiltrate IV site. moxifloxacin (VIGAMOX) 0.5 % ophthalmic solution (CANCELED) As needed, Starting on Wed05/19/23 at 0902, Intra-Op 09 (Given - Provid er: Higinio Foley MD - Comment: to collagen shield) naloxone (NARCAN) 0.4 mg/mL injection 0.04-0.4 mg 0.04-0.4 mg, intravenous, Once as needed, other, excessive sedation/respiratory depression, Starting on Wed05/19/23 at 0933, For 1 dose, Phase I, Dilute 0.4 mg with 9 mL NS (final concentration 0.04 mg/mL). For respiratory depression (respiratory rate less than 6), administer 0.4 mg IVP over 30 seconds. For excessive sedation administer 0.04 mg (1 mL) every 1 minute until desired level of alertness. For IV, administer over 30 seconds., Indications: Opioid Toxicity ondansetron (ZOFRAN) injection 4 mg 4 mg, intravenous, Administer over 2 Minutes, Once as needed, nausea, vomiting, Starting on Wed05/19/23 at 0933, For 1 dose, Phase I, Proceed to haloperidol if ondansetron has been given within the last 6 hours. povidone-iodine (BETADINE PREP) 5 % ophthalmic solution (CANCELED) As needed, Starting on Wed05/19/23 at 0902, Intra-Op 0902 (Given - Provid er: Higinio Foley MD - Comment: prep) prednisoLONE acetate (PRED FORTE) 1 % ophthalmic suspension (CANCELED) As needed, Starting on Wed05/19/23 at 0903, Intra-Op 0903 (Given - Provid er: Higinio Foley MD - Comment: to collagen shield) sodium chloride 0.9% flush 0.5-20 mL 0.5-20 mL, intra-catheter, As needed, line care, Starting on Wed05/19/23 at 0812, Pre-Op, Flush volume based on line type and size. Flush before and after each use. documented in this encounter Orders Medications Ordered That Adiel ht Not Have Been Administered Count Last Ordered Date First Ordered Date balanced salt soln no.2 irri g. (BSS) intraocular solution 1 05/19/2023 BSS Plus-lidocaine 0.375%-EP INEPHrine 0.25 mg (Shkristyr Kelley) preservative free ophthalmic solution (total volume 1 mL) 1 05/19/2023 Carrier Fluids for Secondary Infusion - 0.9% Sodium Chloride 1 05/19/2023 EPINEPHrine 0.3 mg in balanc ed salt soln no.2 irrig. (BSS) 500 mL irrigation solution 1 05/19/2023 fentaNYL (SUBLIMAZE) preserv ative free syringe 25 mcg 1 05/19/2023 fentaNYL (SUBLIMAZE) preserv ative free syringe 50 mcg 1 05/19/2023 haloperidol (HALDOL) injection 1 mg 1 05/19 Lactated Ringer's (LR) infusion 3 lidocaine PF (XYLOCAINE) 10 mg/mL (1 %) preservative free injection 2-10 mg 1 05/19/2023 moxifloxacin (VIGAMOX) 0.5 % ophthalmic solution 1 05/19/2023 naloxone (NARCAN) 0.4 mg/mL injection 0.04-0.4 mg 1 05/19/2023 ondansetron (ZOFRAN) injection 4 mg 1 05/19 povidone-iodine (BETADINE AK EP) 5 % ophthalmic solution 1 05/19/2023 prednisoLONE acetate (PRED F ORTE) 1 % ophthalmic suspension 1 05/19/2023 sodium chloride 0.9% flush 0.5-20 mL 1 10/2023 documented in this encounter Care Teams Blow Off Worker Relationship Specialty Start Date End Date Kraig Ching MD [address] [facility] [address] [place] [address] PCP - General 07/10/16 Picus, MD Gautam [id number] [place] [address] Medical Oncologist/Substance Abuse Counselor Medical Oncology 08/18/18 Tramaine Roe MD [id number] [place] [address] Referring Physician Urology 08/18/18 Sukhwinder Uribe MD [id number] [place] [address] Consulting Physician Urology 08/18/18 Shay Guillermo MD [id number] [place] [address] Referring Physician Urology 08/18/18 Marsha Landis RN Registered Nurse 11/17/18 documented as of this encounter
--- OUTSIDE RECORDS SUMMARY | 2024-03-31 04:53 | XMS_ITS | Encounter Summary ---
Author Organization [facility] Healthcare Address [address] [place] [address] Care Team Providers Care Vertical Boring Mill Operator Name Role Phone Kraig Ching MD Primary Care Provider [phone] Gautam Cope MD Unavailable Tramaine Roe MD Unavailable [phone] Sukhwinder Uribe MD Unavailable [phone] Shay Guillermo MD Unavailable [phone] Marsha Landis RN Unavailable Unavailab le Encounter Details Date Type Department Care Team (Latest Contact Info) Description 05/04/2023 2:21 PM TECHNICAL SME - 05/04/2023 11:59 PM TECHNICAL SME Hospital Encounter [facility] [address] [place] [address] Prostate cancer (HCC) Discharge Disposition: Discharge to [...] on file 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 TECHNICAL SME Gender Identity Not on file Sexual Orientation Not on file documented as of this encounter Medications at Time of Discharge albuterol HFA (PROVENTIL HFA,VENTOLIN HFA,PROAIR HFA) 90 mcg/actuation inhaler Inhale 2 puffs every 8 (eight) hours as needed for wheezing or shortness of breath 06/21/2022 pen needle, diabetic (BD Ultra-Fine Short Pen [...] kidney disease) stage 3, GFR 30-59 ml/min ([facility]) Take 1 tablet (25 mg total) by mouth 2 (two) times a day with meals 60 tablet 11 04/20/2023 4 chlorthalidone 25 mg tablet Take 1 tablet (25 mg total) by mouth daily 90 tablet 3 10/02/2022 4 dorzolamide-gilbert loL (COS[facility]) 22.3-6.8 mg/mL ophthalmic solution Administer 1 drop into both eyes 2 (two) times a day 10 mL 11 12/08/2022 4 insulin aspart (NovoLOG) 100 unit/mL (3 mL) pen for injection ADMINISTER 8 UNITS UNDER THE SKIN THREE TIMES DAILY BEFORE MEALS 3 mL 11 04/10/2022 4 insulin glargine (LANTUS) 100 unit/mL (3 mL) pen for injection ADMINISTER 28 UNITS UNDER THE SKIN DAILY 9 mL 11 03/08/2023 4 Januvia 25 mg tabletIndication s:Type 2 diabetes mellitus with stage 3 chronic kidney disease, without long-term current use of insulin ([facility]) TAKE 1 TABLET BY MOUTH DAILY 30 [...] Chronic Care Management No change(03/23 1:47 PM TECHNICAL SME) No Ingrid Oden, RN Note: Problem: Chronic Pain Goals: 1. Minimize further functional decline 2. Maximize quality of life 3. Control pain Strategies: - Activity/exercise program recommendation - Conservative stepwise pain medicine strategy with multi-disciplinary approach - Recommend healthy lifestyle strategies and compensatory methods as needed documented as of this encounter Procedures Procedure Name Priority Date/Time Associated Diagnosis Comments EGFR STAT 05/04/2023 10:23 AM TECHNICAL SME Prostate cancer (HCC) DIFFERENTIAL AUTO Routine 05/04/2023 10: 23 AM TECHNICAL SME Prostate cancer (HCC) CBC WITH AUTO DIFFERENTIAL Routine 05/04/2023 10:23 AM TECHNICAL SME Prostate cancer (HCC) PSA DIAGNOSTIC Routine 05/04/2023 10:23 AM TECHNICAL SME Prostate cancer (HCC) LACTATE DEHYDROGENASE Routine 05/04/2023 10:23 AM TECHNICAL SME Prostate cancer (HCC) COMPREHENSIVE METABOLIC PANEL STAT 05/04/2023 10:23 AM TECHNICAL SME Prostate cancer (HCC) HEMOGLOBIN A1C Routine 05/04/2023 10:06 AM TECHNICAL SME Prostate cancer (HCC) documented in this encounter Results * (ABNORMAL) eGFR (05/04/2023 10:23 AM TECHNICAL SME) eGFR 28(L) >=60 mL/min/1. 73 m2 [facility] Comment: Interpretive Data Reference Interval Normal ?>/= [...] was last reviewed 2021. Testing performed by: [facility], [address] [place] [phone] Blood 05/04/2023 10:2 3 AM TECHNICAL SME 05/04/2023 10:36 AM TECHNICAL SME us Gautam Cope MD LAB BLOOD ORDERABLES Final Resul t [facility] Department of Laboratories [place], [place] [id number] * (ABNORMAL) Differential, auto (05/04/2023 10:23 AM TECHNICAL SME) Neutrophil abs 8.0(H) 1.5 - 6.6 K/cumm [facility] Comment:Testing performed by : [facility], [address] [facility] [phone] Lymphocyte abs 1.3 1.2 - 3.3 K/cumm MELRINE PERDOMO Comment:Testing performed by : [facility], [facility] [phone] Monocyte abs 0.8 0.2 - 1.2 K/cumm [facility] Comment:Testing performed by : [facility], [address] [place] [phone] Eosinophil abs 0.1 0.0 - 0.5 K/cumm [facility] Comment:Testing performed by : [facility], [address] [place] [phone] Basophil abs 0.0 0.0 - 0.2 K/cumm [facility] Comment:Testing performed by : [facility], [address] [place] [phone] Neutrophil pct 78.6 % [facility] Comment: Interpretive Data Percent cell count reference ranges are not reported, since discordance with absolute values may lead to misinterpretation of CBC data. Current Interpretive Data was last revised on 2017. Testing performed by: [facility], [address] [place] [phone] Lymphocyte pct 12.6 % [facility] Comment: Interpretive Data Percent cell count reference ranges are not reported, since discordance with absolute values may lead to misinterpretation of CBC data. Current Interpretive Data was last revised on 2017. Testing performed by: [facility], [address] [place] [phone] Monocyte pct 7.5 % [facility] Comment:Testing performed by : [facility], [address] [place] [phone] Eosinophil pct 0.8 % [facility] Comment:Testing performed by : [facility], [address] [place] [phone] Basophil pct 0.5 % [facility] Comment:Testing performed by : [address] [phone] Blood 05/04/2023 10:2 3 AM TECHNICAL SME 05/04/2023 10:36 AM TECHNICAL SME us Gautam Cope MD LAB BLOOD ORDERABLES Final Resul t [facility] Department [place] [address] * Lactate dehydrogenase (LD) (05/04/2023 10:23 AM TECHNICAL SME) Lactate dehydrogenase (LDH) 153 100 - 250 Units/L [facility] Comment:Testing performed by : [facility], [address] [place] [phone] Blood 05/04/2023 10:2 3 AM TECHNICAL SME 05/04/2023 10:36 AM TECHNICAL SME us Gautam Cope MD LAB BLOOD ORDERABLES Final Resul t [facility] Department [place] [address] * (ABNORMAL) CBC with auto differential (05/04/2023 10:23 AM TECHNICAL SME) WBC 10.2(H) 3.8 - 9.8 K/cumm [facility] Comment:Testing performed by : [address] [phone] Hgb 12.5(L) 13.8 - 17.2 g/dL [facility] Comment:Testing performed by : [facility], [address] [place] [phone] Hct 38.3(L) 40.7 - 50.3 % [facility] Comment:Testing performed by : [address] [phone] Plt 315 140 - 440 K/cumm [facility] Comment:Testing performed by : [address] [phone] MPV 7.6 6.8 - 10.4 fL [facility] Comment:Testing performed by : [facility], [address] [place] [phone] RBC 4.25(L) 4.50 - 5.70 M/cumm [facility] Comment:Testing performed by : [address] [phone] MCV 90.1 80.0 - 97.6 fL [facility] Comment:Testing performed by : [address] [phone] MCH 29.4 26.7 - 33.7 pg [facility] Comment:Testing performed by : [facility], [address] [place] [phone] MCHC 32.7 32.7 - 35.5 g/dL [facility] Comment:Testing performed by : [facility], [address] [place] [phone] RDW CV 14.9(H) 11.8 - 14.6 % [facility] Comment:Testing performed by : [facility], [address] [place] [phone] NRBC abs 0.01 0.00 - 0.01 K/cumm [facility] Comment:Testing performed by : [facility], [address] [place] [phone] Blood 05/04/2023 10:2 3 AM TECHNICAL SME 05/04/2023 10:36 AM TECHNICAL SME us Gautam Cope MD LAB BLOOD ORDERABLES Final Resul t [facility] Department [place] [address] * (ABNORMAL) Comprehensive metabolic panel (05/04/2023 10:23 AM TECHNICAL SME) Sodium 140 135 - 145 mmol/L [facility] Comment:Testing performed by : [facility], [address] [place] [phone] Potassium, pl 4.5 3.3 - 4.9 mmol/L [facility] Comment:Testing performed by : [facility], [address] [place] [phone] Chloride 106 97 - 110 mmol/L [facility] Comment:Testing performed by : [facility], [address] [place] [phone] CO2 27 22 - 32 mmol/L [facility] Comment:Testing performed by : [facility], [address] [place] [phone] Anion gap 8 2 - 15 mmol/L [facility] Comment:Testing performed by : [facility], [address] [place] [phone] BUN 44(H) 6 - 25 mg/dL [facility] Comment:Testing performed by : [facility], [address] [place] [phone] Creatinine 2.26(H) 0.80 - 1.30 mg/dL [facility] Comment:Testing performed by : [facility], [address] [place] [phone] Glucose 92 70 - 199 mg/dL [facility] Comment: [...] was last revised 2022. Testing performed by: [facility], [address] [place], [place] [phone] Calcium 8.8 8.5 - 10.3 mg/dL [facility] Comment:Testing performed by : [address] [phone] Bilirubin, total 0.4 0.1 - 1.2 mg/dL [facility] Comment:Testing performed by : [address] [phone] Protein, pl 6.0(L) 6.5 - 8.5 g/dL [facility] Comment:Testing performed by : [address] [address] Albumin 3.7 3.5 - 5.0 g/dL [facility] Comment:Testing performed by : [address] [address] Alk phos 128 40 - 130 Units/L [facility] Comment:Testing performed by : [place] [phone] ALT 11 7 - 55 Units/L [facility] Comment:Testing performed by : [place] [phone] AST 10 10 - 50 Units/L [facility] Comment:Testing performed by : [facility] [place], [address] [facility] [phone] Blood 05/04/2023 10:2 3 AM TECHNICAL SME 05/04/2023 10:36 AM TECHNICAL SME Gautam Cope MD LAB BLOOD ORDERABLES Final Resul t Performing Organization Address [facility] de Phone Number [facility] Department [place] [address] * PSA diagnostic (05/04/2023 10:23 AM TECHNICAL SME) PSA-Total <0.02 <=6.20 ng/mL [facility] PERDOM[facility] Comment: Interpretive Data ?AGE ? SEX ?REFERENCE [...] Current interpretive data last revised 21. Blood 05/04/2023 10:2 3 AM TECHNICAL SME 05/04/2023 11:07 AM TECHNICAL SME Gautam Cope MD LAB BLOOD ORDERABLES Final Resul t Performing Organization Address [facility] Co de Phone Number [facility] Department [place] [address] * (ABNORMAL) Hemoglobin A1c (05/04/2023 10:06 AM TECHNICAL SME) Hgb A1C 8.1(H) 4.0 - 5.6 % [facility] Estimated Average Glucose 186 mg/dL [facility] Comment: The ADA recommends reporting an estimated Average Glucose (eAG) with all Hemoglobin A1c results using the equation derived from a study of 507 normal and diabetic adults. ??Minority populations were underrepresented and children were not included. ?? (Diabetes Care 2020; 43(S1): S66-S76). ??The eAG is not equivalent to a fasting glucose. Blood 05/04/2023 10:0 6 AM TECHNICAL SME 05/04/2023 10:57 AM TECHNICAL SME us Gautam Cope MD LAB BLOOD ORDERABLES Final Resul t [facility] Department [place] [address] documented in this encounter Visit Diagnoses Diagnosis Prostate cancer (HCC) Malignant neoplasm of prostate documented in this encounter Care Teams Vertical Boring Mill Operator Relationship Specialty Start Date End Date Kraig Ching MD [address] [place] [address] PCP - General 07/10/16 Gautam Cope MD [address] [place] [address] Medical Oncologist/Campaign Associate Medical Oncology 08/18/18 Tramaine Roe MD [address] [place] [address] Referring Physician Urology 08/18/18 Sukhwinder Uribe MD [address] [place] [address] Consulting Physician Urology 08/18/18 Shay Guillermo MD [address] [facility] [address] [place] [address] Referring Physician Urology 08/18/18 Marsha Landis RN Registered Nurse 11/17/18 documented as of this encounter
--- OUTSIDE RECORDS SUMMARY | 2024-03-31 04:53 | XMS_ITS | Encounter Summary ---
Author Organization [facility] Address [address] [place] [address] Phone Care Team Providers Care Tourist Cabin Keeper Name Role Phone Kraig Ching MD Primary Care Provider [phone] Gautam Cope MD Unavailable Tramaine Roe MD Unavailable [phone] Sukhwinder Uribe MD Unavailable Shay Guillermo MD Unavailable [phone] Marsha Landis RN Unavailable Unavailab le Reason for Visit * Reason Onset Date Comments rescheduling surgery 03/26/2023 Possible Sx Reschedule 03/26/2023 Encounter Details Date Type Department Care Team (Late st Contact Info) Description 03/26/2023 Telephone [facility] Ophthalmology [address] [place], [place] [id number] Higinio Connloly MD [address] [facility] [address] [place] [address] rescheduling surgery; Possible Sx Reschedule Social History Tobacco Use Types Packs/Day Years [...] on file 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 MEDICAL OFFICE SECRETARY Gender Identity Not on file Sexual Orientation Not on file documented as of this encounter Miscellaneous Notes * Telephone Encounter - Janice Goldman - 05/20/2023 9:15 AM CST Spoke to pt and his today. They understand he needs to be early due to his diabetes. Keeping his surgery time the same. CAL OFFICE SECRETARY * Telephone Encounter - Janice Goldman - 05/19/2023 4:26 PM CST LM on pt's VM letting him know the followin. I couldn't leave a message on his 's VM, but it was full. 2. He is insulin diabetic, so he needs to be one of the earlier cases, so we can't schedule to a later time. 3. Left my direct #, if any additional questions. CAL OFFICE SECRETARY * Telephone Encounter - Janice Goldman - 05/19/2023 4:22 PM CST Mailbox is full. Unable to leave a message. CAL OFFICE SECRETARY * Telephone Encounter - Mable Ordaz RMA - 05/19/2023 3:44 PM MEDICAL OFFICE SECRETARY Pt's Aracely called regarding pt's 2.28.24 sx. They may need to reschedule (too early) Please return her call: [phone] CAL OFFICE SECRETARY * Telephone Encounter - Janice Goldman - 04/06/2023 10:28 AM MEDICAL OFFICE SECRETARY Rescheduled pt's CE/OU. Pt will have the same insurance next year. Pt stated he got he go-ahead for CE from his weather forecaster and his PCP. CAL OFFICE SECRETARY * Telephone Encounter - Kat Hudson - 03/26/2023 1:08 PM CST Pt called in to r/s cancelled surgery from 03/15. Pt advised cardiac issue has been resolved and is ready to schedule. Pt# [phone] Spouse# [phone] CAL OFFICE SECRETARY documented in this encounter Plan of Treatment [...] to monitor diabetes and kidney status, etc. [facility] Chronic Pain Care Plan Chronic Care Management No change(03/23 1:47 PM MEDICAL OFFICE SECRETARY) No Ingrid Oden RN Note: Problem: Chronic Pain Goals: 1. Minimize further functional decline 2. Maximize quality of life 3. Control pain Strategies: - Activity/exercise program recommendation - Conservative stepwise pain medicine strategy with multi-disciplinary approach - Recommend healthy lifestyle strategies and compensatory methods as needed documented as of this encounter Visit Diagnoses Not on filedocumented in this encounter Care Teams Tourist Cabin Keeper Relationship Specialty Start Date End Date Kraig Ching MD [address] [facility] [address] [place] [address] PCP - General 07/10/16 Gautam Cope MD [address] [facility] [address] [place] [address] Medical Oncologist/Contract Clerk Automobile Medical Oncology 08/18/18 Tramaine Roe MD [address] [facility] [address] [place] [address] Referring Physician Urology 08/18/18 Sukhwinder Uribe MD [address] [facility] [address] [place] [address] Consulting Physician Urology 08/18/18 Shay Guillermo MD [address] [facility] [address] [place] [address] Referring Physician Urology 08/18/18 Marsha Landis, RN Registered Nurse 11/17/18 documented as of this encounter
--- OUTSIDE RECORDS SUMMARY | 2024-03-31 04:53 | XMS_ITS | Encounter Summary ---
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] Procedures ME XCAPSL CTRC RMVL INSJ IO LENS PROSTH W/O ECP EXTRACTION CATARACT - PHACOEMULSIFICATION AND LENS IMPLANT Referral ID Status Reason Start Date Expiration Date Visits Re quested Visits Authorized [id number] 1 1 Encounter Details Date Type Department Care Team (Latest Contact Info) Description 05/19/2023 9:05 AM FORM BUILDING SUPERVISOR - 05/19/2023 9:40 AM FORM BUILDING SUPERVISOR Surgery [facility] Surgery at [facility] [address] [place] [address] Higinio Foley MD [address] [facility] [address] [place] [address] EXTRACTION CATARACT - PHACOEMULSIFICATION AND LENS IMPLANT Surgery Details Date/Time Status Location OR Service Patient Class Case Class Case Type Trauma Case? 05/19/2023 9:05 AM Posted [facility] Operating Room SC OR 2 Ophthalmology Outpatient Elective Panel 1 Procedure LRB Anes Op Region Wound Class Comments EXTRACTION CATARACT - PHACOEMULSIFICATION AND LENS IMPLANT Left Monitor Anesthesia Care Eye Class I - Clean Surgeon Surgeon Role Service Panel Higinio Foley MD Primary Ophthalmology 1 documented in this encounter Social History Tobacco [...] on file 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 FORM BUILDING SUPERVISOR Gender Identity Not on file Sexual Orientation Not on file documented as of this encounter Last Filed Vital Signs Vital Sign Reading Time Taken Comments Blood Pressure 150/61 05/19/2023 9:40 AM FORM BUILDING SUPERVISOR Pulse 67 05/19/2023 9:40 AM FORM BUILDING SUPERVISOR Temperature 36.2 ??C (97.2 ??F) 05/19/2023 9:30 AM CS T Respiratory Rate 16 05/19/2023 9:40 AM FORM BUILDING SUPERVISOR Oxygen Saturation 97% 05/19/2023 9:40 AM FORM BUILDING SUPERVISOR Inhaled Oxygen Concentration - - Weight 96.6 kg (213 lb) 04/30/2023 12:15 PM FORM BUILDING SUPERVISOR Height 179.1 cm (5' 10.5 ) 04/30/2023 12:[address] Body Mass Index 30.13 04/30/2023 12:15 PM FORM BUILDING SUPERVISOR documented in this encounter Discharge Instructions * Discharge Instructions* Higinio Foley MD - 05/19/2023 9:32 AM FORM BUILDING SUPERVISOR POST- OPERATIVE INSTRUCTIONS 1. Lie on the [...] NOT NORMAL, and should be reported immediately. BUILDING SUPERVISOR * Attachments The following attachments cannot be sent through Care Everywhere. * [facility] PATHWAY TO EXCELLENT CARE AFTER SURGERY documented [...] kidney disease) stage 3, GFR 30-59 ml/min ([facility]) Take 1 tablet (25 mg [...] EXTRACTION CATARACT - PHACOEMULSIFICATION AND LENS IMPLANT BUILDING SUPERVISOR Source Note - Higinio Foley MD - 05/13/2023 4:40 PM FORM BUILDING SUPERVISOR This patient is a 82 y/o WM [...] cataract OS Plan: Proceed with phaco/IOL OS BUILDING SUPERVISOR * Higinio Foley MD - 05/13/2023 4:40 [...] cataract OS Plan: Proceed with phaco/IOL OS BUILDING SUPERVISOR documented in this encounter Miscellaneous Notes * [...] to outpatient recovery i n good condition. BUILDING SUPERVISOR * Brief Op Note - Higinio Foley MD - 05/19/2023 9:14 AM CST Operative Progress Note Surgical Team: Surgeon(s) and Role: * Higinio Foley MD - Primary Anesthesiologist: Beau Minaya MD FINANCIAL ANALYSIS CONSULTANT: Wyatt Zavaleta CRNA Keg Varnisher: Tom Renner RN; Tom Vanessa RN Scrub: [...] Implant Name Type Inv. Item Serial No. Lithographers Printer Lot No. LRB No. Used Action [employer] Lens Iol CNA0t0.200 [employer] CNA0T0.200 - [id number] - [id number] [employer] Lens Iol CNA0t0.200 [employer] CNA0T0.200 [id number] [employer] Left 1 Implanted Blood/Blood Products Transfused: 0 mls Complications: None Condition on Discharge from the operating room was stable Higinio Foley MD Date: 05/19/2023 Time: 9:30 AM No Resident involved on case BUILDING SUPERVISOR * Pre-Procedure Instructions - Ladi Vásquez NP - 05/13/2023 5:50 PM CST [facility] CP[facility] Clinic Location: [facility] The night before your surgery: * Do [...] with COVID-19. You test positive for COVID-19. 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 You should leave your valuables and any jewelry at home. No metal or piercings are allowed in the operating room. You should bring your insurance card, a photo ID (example: Business Librarian's License) and a method of payment for [...] Chart. If you are having surgery at [facility], please arrive on the day of surgery [...] Remove nail coverings, artificial nails and nail taiwanese. Place clean linens on your bed the [...] questions, please call the CPAP Staff at [phone], Wednesday-Wednesday 8am-4:30pm. All patients should read the below section: COVID 19 Updates & Visitor Policy: Please access [email or web address] for the most updated information. Information on [facility]: Please view [email or web address] (Patient & Visitor Information) for additional details regarding Advanced Directive forms, AWARE, directions, parking information, lodging, Internet access, dining and more. Information on [facility] or [facility] ([facility]): Please view [email or web address] (Patient and Visitor Information) for parking/directions and more. For MyChart information, to activate account or password recovery, please go to [email or web address] or call [phone] (toll-free: [phone]), Wed- Wednesday 8am-5pm. Information for Suicide Prevention: National Suicide Prevention Lifeline (7-886- 432-JRYP (9597)) or call or text 867. Chat resources: [email or web address]. Surgery Times: For patients having surgery @ [facility] or [facility] ([facility]), if your surgeon's office has not notified you of your surgery time by NOON THE BUSINESS DAY BEFORE your surgery, please call [phone] and ask for your surgeon's office Dr. Foley. The [facility] ([facility]) does not provide arrival times for the day of surgery or provide the duration of surgery. This information is provided by your surgeon'soffice or by the center where you are having surgery. We appreciate your understanding. BUILDING SUPERVISOR documented in this encounter Plan of Treatment [...] Ilene Fragoso, SHEA Note: Problem: Knowledge deficit - Complications [...] to monitor diabetes and kidney status, etc. [facility] Chronic Pain Care Plan Chronic Care Management No change(03/23 1:47 PM FORM BUILDING SUPERVISOR) No Ingrid Oden, RN Note: Problem: Chronic [...] GLUCOSE DEVICE Routine 05/19/2023 9 :36 AM FORM BUILDING SUPERVISOR EXTRACTION CATARACT - PHACOEMULSIFICATION AND LENS IMPLANT 05/19/2023 9:06 AM FORM BUILDING SUPERVISOR Combined forms of age-related cataract of both eyes POCT GLUCOSE DEVICE Routine 05/19/2023 8 :20 AM FORM BUILDING SUPERVISOR documented in this encounter Results * POCT glucose (05/19/2023 9:36 AM FORM BUILDING SUPERVISOR) Glucose, POC 114 70 - 199 mg/dL Glucose comment 1 Glu2: RN/MD Notified [facility] Blood 05/19/2023 9:36 AM FORM BUILDING SUPERVISOR 05/19/2023 9:36 AM FORM BUILDING SUPERVISOR us Higinio Foley MD LAB POCT ORDERABLES - DEVIC E Final Result Performing Organization Address [facility] Co de Phone Number [facility] [place] [address] * POCT glucose (05/19/2023 8:20 AM FORM BUILDING SUPERVISOR) Glucose, POC 113 70 - 199 mg/dL Blood 05/19/2023 8:20 AM FORM BUILDING SUPERVISOR 05/19/2023 8:20 AM FORM BUILDING SUPERVISOR us Higinio Foley MD LAB POCT ORDERABLES - DEVIC E Final Result Performing Organization Address [facility] Co de Phone Number [facility] Department [place] [address] documented in this encounter Visit Diagnoses Diagnosis Combined forms of age-related cataract of both eyes Arrhythmia Unspecified cardiac dysrhythmia Combined forms of age-related cataract of both eyes documented in this encounter Admitting Diagnoses Diagnosis Combined forms of age-related cataract of both eyes documented in this encounter Administered Medications Inactive Administered Medications - up to 3 most recent administrations Medication Order MAR Action Action Date Dose Rate Site balanced salt soln no.2 irrig. (BSS) intraocular solution As needed, Starting on Wed05/19/23 at 0901, Intra-Op Given 05/19/2023 9:01 AM FORM BUILDING SUPERVISOR 15 mL BSS Plus-lidocaine 0.375%-EPINEPHrine 0.25 mg (Steffi Kelley) preservative free ophthalmic solution (total volume 1 mL) 1 mL, intracameral LEFT, Once, On Wed05/19/23 at 0930, For 1 dose, Intra-Op, Have available in the OR for surgeon administration in the left eye. Given 05/19/2023 9:01 AM FORM BUILDING SUPERVISOR 0.4 mL Carrier Fluids for Secondary Infusion - 0.9% [...] During Ocular Surgery Given 05/19/2023 8:31 AM FORM BUILDING SUPERVISOR 0.3 mL EPINEPHrine 0.3 mg in balanced salt soln no.2 irrig. (BSS) 500 mL irrigation solution As needed, Starting on Wed05/19/23 at 0902, Intra-Op Given 05/19/2023 9:02 AM FORM BUILDING SUPERVISOR 0.3 mL Left Eye Lactated Ringer's (LR) infusion 30 mL/hr, intravenous, Continuous, Starting on Wed05/19/23 at 0845, Pre-Op lidocaine 1%, BUPivacaine 0.375% preservative free ophthalmic solution (total volume 5 mL) 5 mL, periocular LEFT, Once, On Wed05/19/23 at 0845, For 1 dose, Pre-Op/Floor, RETROBULBAR Given 05/19/2023 9:00 AM FORM BUILDING SUPERVISOR 5 mL lidocaine 1%, BUPivacaine 0.375% preservative free ophthalmic solution (total volume 5 mL) 5 mL, periocular LEFT, Once, On Wed05/19/23 at 0845, For 1 dose, Pre-Op/Floor, FACIAL Given 05/19/2023 9:00 AM FORM BUILDING SUPERVISOR 5 mL moxifloxacin (VIGAMOX) 0.5 % ophthalmic solution As needed, Starting on Wed05/19/23 at 0902, Intra-Op Given 05/19/2023 9:02 AM FORM BUILDING SUPERVISOR 6 drops povidone-iodine (BETADINE PREP) 5 % ophthalmic solution As needed, Starting on Wed05/19/23 at 0902, Intra-Op Given 05/19/2023 9:02 AM FORM BUILDING SUPERVISOR 30 mL prednisoLONE acetate (PRED FORTE) 1 % ophthalmic suspension As needed, Starting on Wed05/19/23 at 0903, Intra-Op Given 05/19/2023 9:03 AM FORM BUILDING SUPERVISOR 6 drops Left Eye sodium chloride 0.9% flush 0.5-20 mL 0.5-20 [...] Recently Administered Medications Times are shown in FORM BUILDING SUPERVISOR. Scheduled Medication Order 05/17/2023 05/18/2023 05/19/2023 BSS Plus-lidocaine 0.375%-EPINEPHrine 0.25 mg (Steffi Kelley) preservative free ophthalmic solution (total volume 1 mL) (COMPLETED) 1 mL, intracameral LEFT, Once, On 2/7/24 at 0930, For 1 dose, Intra-Op, Have available in the OR for surgeon administration in the left eye. 0901 (Given - Provid er: Higinio Foley MD)0930 [...] Count Last Ordered Date First Ordered Date Carrier Fluids for Secondary Infusion - 0.9% Sodium Chloride 1 05/19/2023 fentaNYL (SUBLIMAZE) preserv ative free syringe 25 mcg 1 05/19/2023 fentaNYL (SUBLIMAZE) preserv ative free syringe 50 mcg 1 05/19/2023 haloperidol (HALDOL) injection 1 mg 1 05/19 Lactated Ringer's (LR) infusion 3 lidocaine PF (XYLOCAINE) 10 mg/mL (1 %) preservative free injection 2-10 mg 1 05/19/2023 naloxone (NARCAN) 0.4 mg/mL injection 0.04-0.4 mg 1 05/19/2023 ondansetron (ZOFRAN) injection 4 mg 1 05/19 sodium chloride 0.9% flush 0.5-20 mL 1 10/2023 documented in this encounter Care Teams Lay Out And Detail Drafter Relationship Specialty Start Date End Date Kraig Ching MD [address] [place] [address] PCP - General 07/10/16 PicGautam serrato MD [address] [place] [address] Medical Oncologist/Marine Cargo Specialist Medical Oncology 08/18/18 Tramaine Roe MD [address] [place] [address] Referring Physician Urology 08/18/18 Sukhwinder Uribe MD [address] [place] [address] Consulting Physician Urology 08/18/18 Shay Guillermo MD [address] [place] [address] Referring Physician Urology 08/18/18 Marsha Landis, RN Registered Nurse 11/17/18 documented as of this encounter
--- OUTSIDE RECORDS SUMMARY | 2024-03-31 04:53 | XMS_ITS | Encounter Summary ---
Author Organization [facility] [facility] Address [address] [place] [address] Phone Care Team Providers Care Electronic Page Makeup System Operator Name Role Phone Kraig Ching MD Primary Care Provider [phone] Gautam Cope MD Unavailable Tramaine Roe MD Unavailable [phone] Sukhwinder Uribe MD Unavailable Shay Guillermo MD Unavailable [phone] Marsha Landis RN Unavailable Unavailab le Reason for Visit * Consultation (Routine) - Authorized Specialty Diagnoses / Procedures Referred By Saleem narvaez Referred To Contact Oncology Diagnoses Prostate cancer (HCC) Tramaine Roe MD [address] [facility] [address] [place] [address] Phone: tel: fax: Gautam Cope MD [address] [facility], [address] [place] [address] Phone: tel: fax: Referral ID Status Reason Start Date Expiration Date Visits Requested Visits Authorized [id number] Authorized Specialty Services Required 08/15/2018 04/11/2024 99 [id number] Encounter Details Date Type Department Care Team (Late st Contact Info) Description 05/04/2023 11:00 AM REAL ESTATE MANAGER Office Visit [facility] Oncology [address] [facility] 7th [place] [address] [place] [id number] Gautam Cope MD [address] [facility] [address] [place] [address] Prostate cancer (HCC) (Primary Dx) Social History [...] 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 REAL ESTATE MANAGER Gender Identity Not on file Sexual Orientation Not on file documented as of this encounter Last Filed Vital Signs Vital Sign Reading Time Taken Comments Blood Pressure 122/72 05/04/2023 10:51 AM REAL ESTATE MANAGER Pulse 65 05/04/2023 10:51 AM REAL ESTATE MANAGER Temperature 36.4 ??C (97.6 ??F) 05/04/2023 10:[address] Respiratory Rate 14 05/04/2023 10:51 AM REAL ESTATE MANAGER Oxygen Saturation 96% 05/04/2023 10:51 AM REAL ESTATE MANAGER Inhaled Oxygen Concentration - - Weight 97 kg (213 lb 12.8 oz) 05/04/2023 10:51 A M REAL ESTATE MANAGER Height - - Body Mass Index 30.24 04/30/2023 12:15 PM REAL ESTATE MANAGER documented in this encounter Progress Notes * Beatris Herrmann NP - 05/04/2023 12:00 AM CST PATIENT NAME: DAVID DREW : 1940 [place]: 05/04/2023 Mr. Drew is an 82-year-old patient of Dr. Cope with metastatic prostate cancer. His prostate cancer dates back to 1999 when his PSA was 5.5. He was treated with a radical prostatectomy by Dr. Guillermo. His pathology showed Viviana 4 + 3 disease with extracapsular extension and a positive margin. He received adjuvant radiation therapy in November 1999. By June 2012 his PSA was rising and in 2018 it was in the double digits. In August 2018, various imaging showed locally recurrent disease as well as a metastatic lesion at L2. We met the patient shortly after and began leuprolide, abiraterone and prednisone in October 2018. Mr. Drew has had an excellent serologic and radiographic response to therapy. The patient is taking his abiraterone properly. His PSA has remained undetectable. He continues to have urinary frequency and incontinence, both unchanged. The patient is followed by Pain Management for chronic lower back pain, receiving steroid injections. He will take an occasional oxycodone tablet. He was scheduled to have a chest CT scan last week to re-evaluate ground-glass opacities in his lungs seen in a scan last summer, but this was canceled due to lack of transportation. InNovember, he was to have had his cataracts fixed. Unfortunately during preoperative testing an EKG abnormalities were noted so the procedure was canceled. The patient has since established care with faceter, Dr. Castanon, who noted ventricular bigeminy and cleared him for surgery. Mr. Kelly wore a Holter monitor earlier this month that showed several episodes of nonsustained ventricular tachycardia; his carvedilol was increased. He underwent a transthoracic echocardiogram that showed a LVEF of 71%. His cataract surgery has been rescheduled to early May. His other medical issues include hypertension, diabetes, paroxysmal atrial fibrillation, and hyperlipidemia. The patient is having some lightheadedness today. He reports that this happens periodically, and eventually resolves. All other systems are negative. PHYSICAL EXAMINATION: Shows a male whose weight is 97 kg. Blood pressure is 108/47 with a recheck in the room at 122/72. His pulse is 65. He is afebrile. His oxygen saturation is 96% on room air. Performance Status: His performance status is 60%. Nodes: No palpable cervical or supraclavicular adenopathy. Cardiac: S1, S2, with a blowing systolic murmur. His rate is irregular. Lungs: Clear to auscultation bilaterally. Abdomen: Soft, nontender, and mildly distended. No hepatosplenomegaly noted. Bowel sounds are active. Musculoskeletal: He gets on and off the exam table independently, albeit slowly. He pushes a wheelchair up to the 7th floor for balance. Extremities: Lower extremities show 1+ bilateral edema. Neurologic: Difficulty with walking and poor balance due to his back pain, decreased vision and otherwise nonfocal. LABORATORY DATA: From today shows a WBC of 10.2 and hemoglobin of 12.8. His platelet count is 315,000. His liver function is normal and creatinine is 2.26 with a GFR of 28. His PSA is < 0.02 and hemoglobin A1c is 8.1. ASSESSMENT AND PLAN: 1. Metastatic prostate cancer, currently on leuprolide, abiraterone and prednisone. His prostate cancer dates back to 1999, when he was treated with a surgical resection for Perkins 7 disease. He received adjuvant radiation therapy also in 1999. 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 He has been on this regimen since then and his cancer has been under excellent control. Additional imaging will be done in about 1 year. 2. Diabetes. He remains on insulin. 3. Chronic kidney disease, followed by his fund development manager. 4. Chronic lower back pain, secondary to degenerative joint disease. He is being followed by Pain Management and will receive injections in his back. He will take an occasional oxycodone. 5. Ground-glass opacities in his lungs. He should have had a chest CT scan last week but canceled this due to transportation issues. This has been rescheduled to early June. 6. Bilateral cataracts. The plan is to have these removed in May. 7. Cardiac arrhythmias. He is now being followed by a faceter who has increased his carvedilol. Mr. Drew continues to do well with respect to his prostate cancer. We will see him again 12 weeks now for further follow-up. He will be due for another bone density in June 2024. The patient iscomfortable with this plan and will call with any issues in between visits. ELECTRONICALLY SIGNED - 05/04/2023 07:50 PM BRANDO Chavez Nurse Practitioner In collaboration with Gautam Cope M.D. My signature confirms I have reviewed the note and agree with the assessment and plan of BRANDO Chavez ELECTRONICALLY SIGNED - 05/05/2023 06:59 AM Gautam Cope M.D. disability insurance hearing officer ISAK/GLORIA/axel ESTATE MANAGER documented in this encounter Plan of Treatment [...] Management No change(03/23 1:47 PM REAL ESTATE MANAGER) No Ingrid Oden RN Note: Problem: Chronic Pain Goals: 1. Minimize further functional decline 2. Maximize quality of life 3. Control pain Strategies: - Activity/exercise program recommendation - Conservative stepwise pain medicine strategy with multi-disciplinary approach - Recommend healthy lifestyle strategies and compensatory methods as needed documented as of this encounter Results * PSA diagnostic (07/27/2023 10:22 AM CDT) [...] ORDERABLES Final Resul t MERLINE [facility] [place] [address] * (ABNORMAL) Comprehensive metabolic panel (07/27/2023 10:22 AM CDT) Sodium 142 135 - 145 mmol/L Comment:Testing performed by : [facility], [address] [place] [phone] Potassium, pl 4.2 3.3 - 4.9 mmol/L [facility] Comment:Testing performed by : [facility], [address] [place] [phone] Chloride 104 97 - 110 mmol/L [facility] Comment:Testing performed by : [facility], [address] [place] [phone] CO2 28 22 - 32 mmol/L [facility] Comment:Testing performed by : [facility], [address] [place] [phone] Anion gap 10 2 - 15 mmol/L [facility]LINE [facility] Comment:Testing performed by : [facility], [address] [place] [phone] BUN 40(H) 6 - 25 mg/dL [facility] Comment:Testing performed by : [address] [phone] Creatinine 2.21(H) 0.80 - 1.30 mg/dL [facility] Comment:Testing performed by : [facility], [address] [place] [phone] Glucose 154 70 - 199 mg/dL [facility] Comment: Interpretive Data Fasting glucose >/= 126 [...] classification and Diagnosis of Diabetes Diabetes Care 2021; 46: S19-S40. Current interpretive data was last revised 2022. Testing performed by: [facility], [address] [place] [phone] Calcium 9.1 8.5 - 10.3 mg/dL [facility] Comment:Testing performed by : [facility], [address] [place] [phone] Bilirubin, total 0.4 0.1 - 1.2 mg/dL [facility] Comment:Testing performed by : [facility], [address] [place] [phone] Protein, pl 6.5 6.5 - 8.5 g/dL [facility] Comment:Testing performed by : [facility], [address] [place] [phone] Albumin 3.9 3.5 - 5.0 g/dL [facility] Comment:Testing performed by : [facility], [address] [place] [phone] Alk phos 129 40 - 130 Units/L [facility] Comment:Testing performed by : [address] [phone] ALT 9 7 - 55 Units/L [facility] Comment:Testing performed by : [facility], [address] [place] [phone] AST 11 10 - 50 Units/L [facility] Comment:Testing performed by : [facility], [address] [place] [phone] Blood 07/27/2023 10:2 2 AM CDT 07/27/2023 10:34 AM CDT us Gautam Cope MD LAB BLOOD ORDERABLES Final Resul t [facility] Department [place] [address] * (ABNORMAL) CBC with auto differential (07/27/2023 10:22 AM CDT) [facility] WBC 12.4(H) 3.8 - 9.8 K/cumm Comment:Testing performed by : [facility], [address] [place] [address] Hgb 12.6(L) 13.8 - 17.2 g/dL [facility] Comment:Testing performed by : [place] [address] Hct 39.9(L) 40.7 - 50.3 % [facility] Comment:Testing performed by : [facility], [address] [place] [address] Plt 347 140 - 440 K/cumm [facility] Comment:Testing performed by : [place] [address] MPV 7.3 6.8 - 10.4 fL [facility] Comment:Testing performed by : [place] [address] RBC 4.48(L) 4.50 - 5.70 M/cumm [facility] Comment:Testing performed by : [place] [address] MCV 88.9 80.0 - 97.6 fL [facility] Comment:Testing performed by : [place] [address] MCH 28.2 26.7 - 33.7 pg [facility] Comment:Testing performed by : [place] [address] MCHC 31.7(L) 32.7 - 35.5 g/dL [facility] Comment:Testing performed by : [place] [address] RDW CV 14.3 11.8 - 14.6 % [facility] Comment:Testing performed by : [place] [address] NRBC abs 0.00 0.00 - 0.01 K/cumm [facility] Comment:Testing performed by : [place] [address] Blood 07/27/2023 10:2 2 AM CDT 07/27/2023 10:34 AM CDT us Gautam Cope MD LAB BLOOD ORDERABLES Final Resul t Performing Organization Address [facility] de Phone Number [facility] Department [place] [address] * Lactate dehydrogenase (LD) (07/27/2023 10:22 AM CDT) Lactate dehydrogenase (LDH) 149 100 - 250 Units/L Comment:Testing performed by : [facility], [address] [place] [phone] Blood 07/27/2023 10:2 2 AM CDT 07/27/2023 10:34 AM CDT Result Tenisha Cope MD LAB BLOOD ORDERABLES Final Resul t Performing Organization Address [facility] de Phone Number [facility] Department [place] [address] * (ABNORMAL) Hemoglobin A1c (05/04/2023 10:06 AM REAL ESTATE MANAGER) Hgb A1C 8.1(H) 4.0 - 5.6 % [facility] Estimated Average Glucose 186 mg/dL [facility] Comment: The ADA recommends reporting an estimated Average Glucose (eAG) with all Hemoglobin A1c results using the equation derived from a study of 507 normal and diabetic adults. ??Minority populations were underrepresented and children were not included. ?? (Diabetes Care 2020; 43(S1): S66-S76). ??The eAG is not equivalent to a fasting glucose. Blood 05/04/2023 10:0 6 AM REAL ESTATE MANAGER 05/04/2023 10:57 AM REAL ESTATE MANAGER Result Tenisha Cope MD LAB BLOOD ORDERABLES Final Resul t Performing Organization Address [facility] de Phone Number [facility] Department [place] [address] documented in this encounter Visit Diagnoses Diagnosis Prostate cancer (HCC)- Primary Malignant neoplasm of prostate documented in this encounter Orders Appointment Requests Count Last Ordered Date Fi rst Ordered Date ONCBCN CLINIC APPOINTMENT REQUEST 2 024 05/04/2023 ONCBCN INJECTION APPOINTMENT REQUEST 1 07/11 ONCBCN LAB APPOINTMENT 1 07/27/2023 documented in this encounter Care Teams Electronic Page Makeup System Operator Relationship Specialty Start Date End Date Kraig Ching MD [address] [place] [address] PCP - General 07/10/16 Gautam Cope MD [address] [place] [address] Medical Oncologist/Gear Coding Machine Operator Medical Oncology 08/18/18 Tramaine Roe MD [address] [place] [address] Referring Physician Urology 08/18/18 Sukhwinder Uribe MD [address] [place] [address] Consulting Physician Urology 08/18/18 Shay Guillermo MD [address] [place] [address] Referring Physician Urology 08/18/18 Marsha Landis, RN Registered Nurse 11/17/18 documented as of this encounter
--- OUTSIDE RECORDS SUMMARY | 2024-03-31 04:53 | XMS_ITS | Encounter Summary ---
Author Organization [facility] Address [address] [place] [address] Phone Care Team Providers Care Ada Accommodation Consultant Name Role Phone Kraig Ching MD Primary Care Provider [phone] Gautam Cope MD Unavailable Tramaine Roe MD Unavailable [phone] Sukhwinder Uribe MD Unavailable Shay Guillermo MD Unavailable [phone] Marsha Landis RN Unavailable Unavailab le Encounter Details Date Type Department Care Team (Late st Contact Info) Description 05/20/2023 8:15 AM HIDE MILL MAN Office Visit [facility] Ophthalmology [address] [facility] [address] [place] [address] Higinio Connolly MD [address] [facility] [address] [place] [address] Pseudophakia of left eye (Primary Dx) Social History Tobacco Use Types [...] on file 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 HIDE MILL MAN Gender Identity Not on file Sexual Orientation Not on file documented as of this encounter Progress Notes * Higinio Connolly MD - 05/20/2023 8:15 AM CST Impression: Stable post operative day #1 status post (s/p) phaco/IOL OS with mild IOP elevation Plan: Post-operative instructions discussed. Start Moxifloxacin, Ketorolac, and Prednisone 1% OS TID. Resume Cosopt OU BID. Return in two weeks or prn - post-op visit and intraocular lens (IOL) calculation for cataract surgery OD - scheduled on 06/09/2023. Will plan to use CNA0T with plano target OD. MILL MAN documented in this encounter Plan of Treatment [...] to monitor diabetes and kidney status, etc. [facility] Chronic Pain Care Plan Chronic Care Management No change(03/23 1:47 PM HIDE MILL MAN) No Ingrid Oden, RN Note: Problem: Chronic Pain Goals: 1. Minimize further functional decline 2. Maximize quality of life 3. Control pain Strategies: - Activity/exercise program recommendation - Conservative stepwise pain medicine strategy with multi-disciplinary approach - Recommend healthy lifestyle strategies and compensatory methods as needed documented as of this encounter Visit Diagnoses Diagnosis Pseudophakia of left eye- Primary Lens replaced by other means documented in this encounter Eye Exam Visual Acuity (Snellen - Linear) Right eye Left eye Dist sc 20/70 -2 Dist ph sc 20/50 -2 Tonometry (Applanation, 8:48 AM) Right eye Left eye Pressure 31 Neuro/Psych Oriented x3: Yes Mood/Affect: Normal Slit Lamp Exam Right eye Left eye Lids/Lashes Normal Conjunctiva/Sclera 1+ Injection; focal PJ Cornea 1+ diffuse rena al haze Anterior Chamber Deep, 1+ Cell, 1+ Flare Iris Dilated Lens Posterior chambe r intraocular lens, no Posterior capsular opacification Care Teams Ada Accommodation Consultant Relationship Specialty Start Date End Date Kraig Ching MD [address] [facility] [address] [place] [address] PCP - General 07/10/16 Gautam Cope MD [address] [facility] [address] [place] [address] Medical Oncologist/Behavioral Technician Medical Oncology 08/18/18 Tramaine Roe MD [address] [facility] [address] [place] [address] Referring Physician Urology 08/18/18 Sukhwinder Uribe MD [address] [facility] [address] [place] [address] Consulting Physician Urology 08/18/18 Shay Guillermo MD [address] [facility] [address] [place] [address] Referring Physician Urology 08/18/18 Marsha Landis, RN Registered Nurse 11/17/18 documented as of this encounter
--- OUTSIDE RECORDS SUMMARY | 2024-03-31 04:53 | XMS_ITS | Encounter Summary ---
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] Procedures OK XCAPSL CTRC RMVL INSJ IO LENS PROSTH W/O ECP EXTRACTION CATARACT - PHACOEMULSIFICATION AND LENS IMPLANT Referral ID Status Reason Start Date Expiration Date Visits Re quested Visits Authorized [id number] 1 1 Encounter Details Date Type Department Care Team (Late st Contact Info) Description 06/09/2023 8:25 AM DESK INTERVIEWER Anesthesia Event [facility] [address] [place] [address] Brett Anthony MD [address] [place], [place] [id number] Vale Campbell, LILIA [address] [facility] [phone] [place], [place] [id number] Anesthesia Record Procedure Summary Procedure Name Responsible Anesthesiologist Anesthesia Start Time Anesthesia Stop Time EXTRACTION CATARACT - PHACOEMULSIFICATION AND LENS IMPLANT (Right: Eye) Brett Anthony MD 06/09/23 0825 06/09/23 0854 Events Date Time Event Comment 06/09/2023 0815 0825 An Start 0825 Start Supplemental O2 0825 An Induction The patient was reevaluated immediately before moderate or deep sedation use and before anesthesia induction. 0825 Quick Note Retrobulbar blo ck done by Dr Connolly 0830 In Room 0830 An Start Data 0831 Anesthesia Ready 0837 Proc Start 0837 Incision Start 0850 an stop data 0850 Proc Fin 0851 Out of Room 0854 An Stop 0854 Handoff to RN I completed my handoff [...] Patient disposition at the time of handoff: PACU Meds Name Total lidocaine (cardiac) syringe 2 % 40 mg propofol 40 mg * Agents Name O2 N2O Air * Blood No blood administrations on file. Lines, Drains, and Airways Type Details Placement Removal RETIRED Wound 01/17/19; Puncture; Bilateral; Back; 03/14/24 (Retired LDA, Removed/Completed by InfoRemate with LDA Utility); 1213 (Retired LDA, Removed/Completed by Info[employer] with LDA Utility) 01/17/19 0000 by Jayla Gibson RN 03/14/24 1213 by Discharge Provider, Automatic RETIRED Wound 03/23/23; 1538; No; Puncture; Mid-line; Buttocks; 03/14/24 (Retired LDA, Removed/Completed by Info[employer] with LDA Utility); 1213 (Retired LDA, Removed/Completed by Info[employer] with LDA Utility) 03/23/23 1538 by Kiran Wilson, SHEA 03/14/24 1213 by Discharge Provider, Automatic RETIRED Surgical Site 05/19/23; 0903; Le ft; Eye; 03/14/24 (Retired LDA, Removed/Completed by Info[employer] with LDA Utility); 1213 (Retired LDA, Removed/Completed by Epic with LDA Utility) 05/19/23 0903 by Tom Vanessa RN 03/14/24 1213 by Discharge Provider, Automatic Peripheral IV Placement Date: 06/09/23; Placement Time: 075; Catheter Size: 22 G; Orientation: Right; Location: Wrist; Inserted by: Karli; Insertion Attempts: 1; Patient Tolerance: Tolerated well; Removal Date: 06/09/23; Removal Time: 0859 06/09/23 0753 by Ethan Quintero RN 06/09/23 0859 by Ethan Quintero RN RETIRED Surgical Site 06/09/23; 0837; Right; Eye; 03/14/24 (Retired LDA, Removed/Completed by Epic with LDA Utility); 121 (Retired LDA, Removed/Completed by Epic with LDA Utility) 06/09/23 0837 by Tom Renner RN 03/14/24 1213 by Discharge Provider, Automatic [...] on file 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 DESK INTERVIEWER Gender Identity Not on file Sexual Orientation Not on file documented as of this encounter OR Notes * Anesthesia Postprocedure Evaluation - Brett Anthony MD - 06/09/2023 9:37 AM CST Patient: David Wei Procedure Summary Date: 06/09/23 Room / Location: [facility] OPERATING ROOM 02 / [facility] Operating Room Anesthesia Start: 824 Anesthesia Stop: 853 Procedure: EXTRACTION CATARACT - PHACOEMULSIFICATION AND LENS IMPLANT (Right: Eye) Diagnosis: Combined forms of age-related cataract of both eyes (Combined forms of age-related cataract of both eyes [H25.813]) Providers: Higinio Connolly MD Responsible Provider: Brett Anthony MD Anesthesia Type: MAC ASA Status: 2 Anesthesia Type: MAC Last vitals BP 159/88 Pulse 57 Temp 36.4 ??C (97.5 ??F) (Temporal) Resp 16 SpO2 98% Anesthesia Post Evaluation Patient location during evaluation: PACU Patient participation: complete - patient participated Level of consciousness: follows simple commands and fully awake Pain management: adequate Airway patency: adequate Cardiovascular status: hemodynamically stable Respiratory status: acceptable and room air Hydration status: acceptable Pt is: normothermic Nausea/Vomiting status: none No notable events documented. INTERVIEWER * Anesthesia Preprocedure Evaluation - Brett Anthony MD - 06/02/2023 11:57 AM CST Images from the original note were not included. [facility] for Preoperative Assessment and Planning Preoperative Evaluation Record Evaluation type/location: TPAP from [facility] Planned procedure site: [facility] OR Date: 06/02/23 NOTE: This note represents a preoperative evaluation initiated via telephone interview. NO PHYSICALEXAM was performed at the time of initial assessment. A physical exam may be added to this note anddocumented below. Anesthesia Evaluation David Wei is a 82 y.o. male EXTRACTION CATARACT - PHACOEMULSIFICATION AND LENS IMPLANT (Right: Eye) Pre-Op Diagnosis Codes: * Combined forms of age-related cataract of both eyes [H25.813] HISTORY HPI David Wei is a 82 y.o. male with h/o PVCs & NSVT, HTN, HLD, CKD, DM with insulin, COPD,Metastatic Prostate CA (1998), Chronic pain with PRN opioid use, Obesity (BMI= 30) presenting for evaluation having Cataract Extraction and IOL Right eye for decreased vision d/t cataract. Past Medical History Information obtained from: patient and chart. Neurological Pertinent negatives: seizures; neuromuscular disease; CVA/stroke; TIA; CEA; ICA stenosis; dementia/mild cognitive impairment and carotid artery stent Cardiovascular + Hypertension Hypertension year diagnosed: 1999. Typical systolic BP - 130 Typical diastolic BP - 80 + Hyperlipidemia (Treated with statin) + Current valvular disease (NATE= 1.5 cm2 per TTE 02/2018) - - mild; + Other arrhythmia (h/o NSVT, PVCs and ventricular bigeminy-- Treated with carvedilol) - PVCs and non-sustained V-tach. Pertinent negatives: CAD ; [place] ; CABG ; valve replacement; atrial fibrillation; pacemaker/ICD; PVD; DVT/PE; negative for CHF; drug-eluting stent(s); bare metal stent(s) and coronary angioplasty Comments: Evaluated by ecg technician, Dr Albert-- Last OV 03/18/2023 Respiratory + COPD (Rarely uses albuterol) Dyspnea frequency: 2 days/week or less. Rescue inhaler use: never. Pertinent negatives: asthma; sleep apnea (IVAN); pulmonary hypertension; no O2 use outside the hospital; no history of oral steriod use; no prior intubation for respiratory failure and non-smoker Hepatic / Heme Pertinent negatives: liver disease; history of anemia; history of thrombocytopenia and history of Suki positive Gastrointestinal Pertinent negatives: GERD and hiatal hernia Renal / + Renal disease (Last BUN= 44, Cr= 2.26 on 05/04/2023) - CKD Pertinent negatives: dialysis and nephrolithiasis Comments: Followed by data science and iot manager, Dr Guerrero-- Last 2022 Musculoskeletal/Pain + Chronic pain (Chronic lower back pain into LLE) - back pain. + Chronic opioid use (PRN oxycodone) - less than daily. Pertinent negatives: previous treatment for opioid use disorder Comments: Followed by pain management, Dr Arreola Endocrine / Other + Diabetes mellitus - Diabetes type 2. Diagnosed: 2000. Diabetic complications: nephropathy. Outpatient insulin use: current. Pt reported low glucose range is 51. Pt reported high glucose range is 285. Pt reported HgA1c: 8.1%. Pt reported HgA1c date: 05/04/2023. + Obesity (BMI >30) + Cancer history- s/p radiation and metastatic cancer. Cancer type: Prostate CA dxd 1998 s/p prosatectomy and radiation (last 1999) with mets to L2. + Pancreatitis (h/o Pancreatitis 1998) Pertinent negatives: thyroid disease; rheumatological disease and transplanted organ Functional Capacity Functional capacity: 4-6 METs Comments: Pt states able to walk 3-4 blocks or climb 1-2 flights of stairs without SOB/CP. Pt able to walk from garage into CAM with walker without stopping to rest. Review of Systems + easy bruising (Denies excessive bleeding) + chronic pain (Chronic lower back pain into LLE) + numbness/tingling (Intermittent N/T LLE with standing long periods) + vision loss (+Reading glasses; Decreased vision d/t cataract-- Etiology for surgery) Pertinent negatives: productive cough; wheezing; SOB; recent cold/flu; fever; chest pain; palpitations; orthopnea (Sleeps with 1 pillow at night with HOB elevated slightly); pedal edema; PND; Sickle Cell disease/trait; previous transfusion; transfusion reaction; melena/hematochezia; bleeding problems; syncope; dizziness; muscle weakness; hard of hearing; heartburn; nausea; dysphagia; diarrhea; dentures/partials; chipped/loose teeth; abdominal pain; diaphoresis and no unexpected weight change PAT Summary and Plans Cardiac risk classification of planned procedure: low cardiac risk. Disposition: suitable for outpatient surgery center. Preoperative assessment status: complete pending laboratory results. Additional comments: David Wei is a 82 y.o. male who is being evaluated prior to undergoinga low cardiac risk surgery. Revised Cardiac Risk Index factors are (insulin therapy for diabetes and preoperative creatinine > 2 mg/dL) for a total RCRI of 2 out of 6. Functional capacity is 4-6 METs. Comorbidities include: h/o PVCs & NSVT, HTN, HLD, CKD, DM with insulin, COPD, Metastatic Prostate CA (1998), Chronic pain with PRN opioid use, Obesity (BMI= 30) Obstructive sleep apnea (IVAN) screening status is STOP-BANG incomplete at 3-4 suggesting MODERATE risk for IVAN. Neck circumference pending. May need IVAN order set initiated if Co2 >27. This assessment was performed via telephone. Therefore the physical exam has been deferred to the day of surgery team. The patient was provided with preoperative instructions for their medications. The patient was informed that instructions regarding stopping any therapeutic antiplatelet or anticoagulant medications will be provided by the surgeon's office. Patient instructions were provided by telephone and electronically sent via [employer]. Patient verbalized understanding of instructions. Blood bank needs for day of procedure: No type and screen needed CBC, CMP 05/04/2023-- BUN= 44, Cr= 2.26, CO2= 27, H/H= 12.5/38.3 PSA < 0.02 on 11/17/2022, HbA1C= 8.1% on 05/04/2023 Pending labs/tests include: POC Blood Glucose ordered for DOS. TTE 04/29/2023, Event Monitor 03/18/2023-04/11/2023, EKG 03/18/2023, CXR 01/01/2023, CT Chest 06/02/2022, TTE 02/23/2018-- See diagnostic section and in Epic Pt had left cataract extraction done 05/19/2023 at [facility]-- No documented complications with anesthesia noted and pt is stable at baseline. Pending POC Blood Glucose to be reviewed by anesthesia and surgical teams prior to OR. TPAP assessment complete. Preoperative evaluation performed by Vale Campbell NP on 02/04/23 at 2:24 PM . Patient Active Problem List Diagnosis Date Noted Arrhythmia 05/19/2023 Pseudophakia of left eye 05/19/2023 Essential hypertension 03/08/2023 Type 2 diabetes mellitus with stage 3a chronic kidney disease, with long-term current use of insulin ([facility]) 03/08/2023 Combined forms of age-related cataract of right eye 10/30/2022 Moderate stage chronic narrow angle glaucoma 10/30/2022 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 10/30/2022 CKD (chronic kidney disease) 03/08/2022 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 chronic kidney disease ([facility]) 10/15/2021 Gastroesophageal reflux disease 04/08/2021 Secondary hyperparathyroidism of renal origin ([facility]) 09/15/2019 Spinal stenosis of lumbar region with neurogenic claudication 09/09/2018 Sciatica, left side 09/09/2018 Chronic bilateral low back pain with bilateral sciatica 09/09/2018 Prostate cancer ([facility]) 09/06/2018 SBO (small bowel obstruction) ([facility]) ([facility]) 07/15/2018 Chronic diastolic heart failure ([facility]) 01/25/2018 Shortness of breath 01/25/2018 Hypertensive kidney disease with chronic kidney disease stage III ([facility]) 11/25/2017 Duodenal ulcer 11/25/2017 PAF (paroxysmal atrial fibrillation) ([facility]) ([facility]) 10/22/2017 COPD (chronic obstructive pulmonary disease) ([facility]) 10/22/2017 Chronic kidney disease, stage 3b ([facility]) 10/22/2017 Allergy to statin medication 08/30/2017 Tobacco use 08/30/2017 Hyperlipidemia associated with type 2 diabetes mellitus ([facility]) 01/15/2017 Inflamed seborrheic keratosis 10/03/2014 Actinic keratosis 10/03/2014 Benign neoplastic disease 10/03/2014 Angioma 10/03/2014 Vitamin D deficiency 12/15/2013 Hypertension 01/12/2012 Type 2 diabetes mellitus without complication, with long-term current use of insulin ([facility]) ([facility]) 01/12/2012 Hyperlipidemia 01/12/2012 Past Medical History: Diagnosis Date Anemia Arrhythmia Chronic pain disorder Diabetes ([facility]) Diverticulitis Esophageal stricture GERD (gastroesophageal reflux disease) History of pancreatitis 1998 History of prostate cancer Prostate CA dxd 1998 s/p prosatectomy and radiation (last 1999) with mets to L2 HTN (hypertension) Dxd ~1999 Hyperlipidemia Treated with statin Low back pain Multiple gastric ulcers Renal disease 40% functioning Type 2 diabetes mellitus (HCC) Past Surgical History: Procedure Laterality Date ABDOMINAL SURGERY 1998 Extensive abdominal surgery with Pancreatic abcess/pancreatitis CATARACT EXTRACTION W/ INTRAOCULAR LENS IMPLANT Left 05/19/2023 CHOLECYSTECTOMY 1998 COLONOSCOPY Multiple-- Last 2012 PROSTATECTOMY 1999 UPPER GASTROINTESTINAL ENDOSCOPY 12/2017 Allergies Allergen Reactions Atorvastatin Muscle pain Med List Status: Nurse Complete Set By: Valencia Whitaker RN at 05/20/2023 1:55 PM Taking? Last Dose Start Date End Date Provider abiraterone (ZYTIGA) 250 mg tablet 05/19/2023 03/12/23 -- Gautam Cope MD Take 4 tablets (1,000 mg) by mouth daily. Do not eat anything for at least 2 hours before and for at least 1 hour after Patient taking differently: Take 4 tablets (1,000 mg total) by mouth nightly Accu-Chek Fastclix Lancet Drum misc -- 05/30/23 -- Kraig Ching MD USE DIRECTED Accu-Chek Guide test strips strip -- 05/30/23 -- Kraig Ching MD USE DIRECTED TWICE DAILY albuterol HFA (PROVENTIL HFA,VENTOLIN HFA,PROAIR HFA) 90 mcg/actuation inhaler -- 06/21/22 -- ProviderColeen MD carvediloL (COREG) 25 mg tablet 05/20/2023 04/20/23 -- Alexandro Albert MD Take 1 tablet (25 mg total) by mouth 2 (two) times a day with meals Patient taking differently: Take 1 tablet (25 mg total) by mouth 2 (two) times a day with meals chlorthalidone 25 mg tablet 05/20/2023 10/02/22 -- Lin Guerrero MD Take 1 tablet (25 mg total) by mouth daily Patient taking differently: Take 1 tablet (25 mg total) by mouth every morning dorzolamide-timoloL (COSOPT) 22.3-6.8 mg/mL ophthalmic solution 05/20/2023 12/08/22 -- Higinio Connolly MD Administer 1 drop into both eyes 2 (two) times a day Patient taking differently: Administer 1 drop into both eyes 2 (two) times a day insulin glargine (LANTUS) 100 unit/mL (3 mL) pen for injection 05/19/2023 03/08/23 -- Kraig Ching MD ADMINISTER 28 UNITS UNDER THE SKIN DAILY Patient taking differently: Inject 28 Units under the skin nightly ADMINISTER 28 UNITS UNDER THE SKIN DAILY Januvia 25 mg tablet 05/19/2023 12/08/22 -- Kraig Ching MD TAKE 1 [...] pre op lisinopriL (PRINIVIL,ZESTRIL) 20 mg tablet 05/20/2023 07/22/22 07/22/23 Lin Guerrero MD Take 1.5 tablets (30 mg total) by mouth daily Patient taking differently: Take 1.5 tablets (30 mg total) by mouth every morning moxifloxacin (VIGAMOX) 0.5 % ophthalmic solution 05/20/2023 12/08/22 -- Higinio Connolly MD Instill 1 drop into surgical eye three times daily starting two days before surgery Patient taking differently: Administer 1 drop into the left eye 3 (three) times a day Instill 1 drop into surgical eye three times daily starting two days before surgery NovoLOG 100 unit/mL (3 mL) pen for injection 05/20/2023 05/05/23 -- Kraig Ching MD ADMINISTER 8 UNITS UNDER THE SKIN THREE TIMES DAILY BEFORE MEALS Patient taking differently: Inject 8 Units under the skin 3 (three) times a day with meals Plus Sliding Scale oxyCODONE (ROXICODONE) 5 mg immediate release tablet Past Week 04/26/23 -- Kraig Ching MD Take 1 tablet (5 mg total) by mouth every 6 (six) hours as needed for pain Patient taking differently: Take 1 tablet (5 mg total) by mouth every 6 (six) hours as needed for pain Notes: Dx; prostate cancer C[address] pantop[address] (PROTONIX) 40 mg EC tablet 05/20/2023 12/05/22 -- Kraig Ching MD TAKE 1 TABLET(40 MG) BY MOUTH DAILY Patient taking differently: Take 1 tablet (40 mg total) by mouth every morning pen needle, diabetic (BD Ultra-Fine Short Pen Needle) 31 gauge x 5/16 needle -- 12/24/22 -- Kraig Ching MD USE TO INJECT INSULIN 4 TIMES EVERY DAY DIRECTED pravastatin (PRAVACHOL) 20 mg tablet 05/19/2023 09/14/22 -- Kraig Ching MD TAKE 1 TABLET BY MOUTH EVERY DAY Patient taking differently: Take 1 tablet (20 mg total) by mouth nightly prednisoLONE acetate (PRED FORTE) 1 % ophthalmic suspension 05/20/2023 12/08/22 -- Higinio Connolly MD Instill 1 drop into surgical eye three times daily starting after surgery Patient taking differently: Administer 1 drop into the left eye 3 (three) times a day Instill 1 drop into surgical eye three times daily starting after surgery predniSONE (DELTASONE) 5 mg tablet 05/20/2023 10/15/22 -- Gautam Cope MD Take 1 tablet (5 mg) by mouth two times a day Patient taking differently: Take 1 tablet (5 mg) by mouth 2 (two) times a day PreviDent 5000 Plus 1.1 % cream 05/19/2023 12/10/22 -- ProviderColeen MD No current facility-administered medications for this encounter. Current Outpatient Medications: abiraterone (ZYTIGA) 250 mg tablet albuterol HFA (PROVENTIL HFA,VENTOLIN HFA,PROAIR HFA) 90 mcg/actuation inhaler carvediloL (COREG) 25 mg tablet chlorthalidone 25 mg tablet dorzolamide-timoloL (COSOPT) 22.3-6.8 mg/mL ophthalmic solution insulin glargine (LANTUS) 100 unit/mL (3 mL) pen for injection Januvia 25 mg tablet lisinopriL (PRINIVIL,ZESTRIL) 20 mg tablet moxifloxacin (VIGAMOX) 0.5 % ophthalmic solution NovoLOG 100 unit/mL (3 mL) pen for injection oxyCODONE (ROXICODONE) 5 mg immediate release tablet pantoprazole DR (PROTONIX) 40 mg EC tablet pravastatin (PRAVACHOL) 20 mg tablet prednisoLONE acetate (PRED FORTE) 1 % ophthalmic suspension predniSONE (DELTASONE) 5 mg tablet PreviDent 5000 Plus 1.1 % cream Accu-Chek Fastclix Lancet Drum [facility] Accu-Chek Guide test strips strip ketorolac (ACULAR) 0.5 % ophthalmic solution pen needle, diabetic (BD Ultra-Fine Short Pen Needle) 31 gauge x 5/16 needle Social History Tobacco Use Smoking Status Former Current packs/day: 0.00 Average packs/day: 0.3 packs/day for 52.0 years (13.0 ttl pk-yrs) Types: Cigarettes Start date: 1957 Quit date: 2009 Years since quittin.1 Passive exposure: Past Smokeless Tobacco Never Tobacco Comments Smoking History Packs/day: 10 Cigarettes Alcohol Use: Alcohol Misuse (05/20/2023) AUDIT-C Frequency of Alcohol Consumption: 2-3 times a week Average Number of Drinks: 1 or 2 Frequency of Binge Drinking: Less than monthly Substance and Sexual Activity Drug Use Yes Frequency: 1.0 times per week Types: Marijuana Comment: Occasionally smokes marijuana Family History Problem Relation Age of Onset Kidney failure Mother Dementia Father Diabetes type II Other Diabetes mellitus type 2; Hypertension Other Hypertension; Anesthesia problems Neg Hx PAT Physical Exam Additional comments: Telephone assessment has been performed and DOS physical exam will need to be performed by anesthesia provider. There were no vitals filed for this visit. Relevant diagnostics: ECG(s): EKG 03/18/2023-- SR with 1st degree AVB with frequent PVCs 61 bpm Echocardiogram(s): TTE 04/29/2023-- Atrial flutter/fib; Thickened aortic valve leaflets; Mild Aortic Stenosis, variable R-R interval precludes extrapolation of the aortic valve area; LA is normal. Normal RV cavity size. LV cavity size is normal. Reduced global LV myocardial longitudinal functionand strain pattern. Upper-Normal LV wall thickness/mass. Normal Inferior vena cava. Upper-Normal aorta; As compared to previous study (02/23/2018 ), there are no appreciable changes. No AR seen, No MR seen, mild , no MS, normal TV, normal PV. Diastolic function: Normal Ao TVI=12/58; LVEF 71%. TTE 02/23/2018-- No previous echo report. Normal [...] N/A PFT(s): N/A Vascular studies: N/A Other: Event Monitor 03/18/2023-04/11/2023-- Microbiology Instructor Review of Transmissions: 25 day study of 739,000 beats. 50<HR<109:: AVG HR = 71 The patient's monitoring period was 03/18/2023 -04/11/2023. Baseline sample showed Sinus Rhythm, Sinus Bradycardia w/PVCs (4 in 1 min)/Artifact/Lead Loss with a heart rate of 59.7 bpm. There were 0 critical, 0 serious, and 16 stable events that occurred., I have reviewed the findings on the individual tracings for the dates noted below and I agree., The full scanned/data report is available in [facility]. labeled MONITOR STRIPS PDF . CXR 01/01/2023-- Comparison made to CT 06/02/2022. Heart size is upper limits of normal. Lungs are clear. No pleural effusion or pneumothorax. CT Chest 06/02/2022-- 1. No change in a 7 mm ground glass opacity in the right upper lobe 2. Unchanged severe aortic valve calcification which may the an indication of aortic stenosis. PT: No results found for requested labs [...] labs within last 30 days. BMP Glucose: 05/19/2023: 114 mg/dL Calcium: 05/04/2023: 8.8 mg/dL Sodium: 05/04/2023: 140 mmol/L Potassium: 05/04/2023: 4.5 mmol/L CO2: 05/04/2023: 27 mmol/L Chloride: 05/04/2023: 106 mmol/L BUN: 05/04/2023: 44 mg/dL (H) Creatinine: 05/04/2023: 2.26 mg/dL (H) Brit index score: 85 DOS Physical Exam Medical history, medications, and allergies reviewed. Attestation: This PAT evaluation 06/09/2023. Airway Exam: Mallampati: II Cervical ROM: FROM Cardiovascular Exam: Rate: regular Rhythm: regular Murmur: TRAVON Pulmonary Exam: LCTA, bilat EENT Exam: trachea midline Dental Exam: Appears intact Skin Exam: Skin is warm. Abdominal Exam: Abdomen is soft. Current state: Patient's current state is cooperative and interactive. Anesthesia Plan ASA 2 My patient is approved for the Anesthesia Controlled Medication protocol when under care of a CHIEF ENGINEERING DIVISION Planned anesthesia: MAC Induction: Induction: intravenous. Postoperative Plan: No plan for postoperative opioid use. No postoperative mechanical ventilation intended. Patient's planned disposition post procedure is Outpatient. Informed Consent: Discussed plan with CHIEF ENGINEERING DIVISION. Anesthesia plan and risks discussed with patient. Consent and Attending signature: I and/or my designee have discussed the anesthesia plan, benefits, possible alternatives, parental presence at time of induction (if indicated), and clinically relevant risks that may include dental injury, unintentional awareness, and/or other complications. The patient and/or parent/legal guardian understand, and agree to proceed. All questions answered. INTERVIEWER INTERVIEWER documented in this encounter Plan of Treatment [...] Chronic Care Management No change(03/23 1:47 PM DESK INTERVIEWER) No Ingrid Oden, SHEA Note: Problem: Chronic [...] free injection intravenous, As needed, Starting on Wed06/09/23 at 0825, Anesthesia Intra-op, Indications: Ventricular ArrhythmiasIndications:Ventricular Arrhythmias Given 06/09/2023 8:25 AM DESK INTERVIEWER 40 mg propofoL (DIPRIVAN) 10 mg/mL IV intravenous, As needed, Starting on Wed06/09/23 at 0825, Anesthesia Intra-op New Bag 06/09/2023 8:25 AM DESK INTERVIEWER 40 mg documented in this encounter Care Teams Rail Engineer Relationship Specialty Start Date End Date Kraig Ching MD [address] [place] [address] PCP - General 07/10/16 Gautam Cope MD [address] [place] [address] Medical Oncologist/Event Sales Manager Medical Oncology 08/18/18 Tramaine Roe MD [address] [place] [address] Referring Physician Urology 08/18/18 Sukhwinder Uribe MD [address] [place] [address] Consulting Physician Urology 08/18/18 Shay Guillermo MD [address] [place] [address] Referring Physician Urology 08/18/18 Marsha Landis, RN Registered Nurse 11/17/18 documented as of this encounter
--- OUTSIDE RECORDS SUMMARY | 2024-03-31 04:53 | XMS_ITS | Encounter Summary ---
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] Procedures TX XCAPSL CTRC RMVL INSJ IO LENS PROSTH W/O ECP EXTRACTION CATARACT - PHACOEMULSIFICATION AND LENS IMPLANT Referral ID Status Reason Start Date Expiration Date Visits Re quested Visits Authorized [id number] 1 1 Encounter Details Date Type Department Care Team (Latest Contact Info) Description 06/09/2023 8:40 AM BONDACTOR MACHINE OPERATOR - 06/09/2023 9:10 AM BONDACTOR MACHINE OPERATOR Surgery [facility] Surgery at [facility] [address] [place] [address] Higinio Foley MD [address] [place] [address] EXTRACTION CATARACT - PHACOEMULSIFICATION AND LENS IMPLANT Surgery Details Date/Time Status Location OR Service Patient Class Case Class Case Type Trauma Case? 06/09/2023 8:40 AM Posted [facility] Operating Room [place] OR 2 Ophthalmology Outpatient Elective Panel 1 Procedure LRB Anes Op Region Wound Class Comments EXTRACTION CATARACT - PHACOEMULSIFICATION AND LENS IMPLANT Right Monitor Anesthesia Care Eye Class I - [...] on file 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 BONDACTOR MACHINE OPERATOR Gender Identity Not on file Sexual Orientation Not on file documented as of this encounter Last Filed Vital Signs Vital Sign Reading Time Taken Comments Blood Pressure 159/88 06/09/2023 8:50 AM BONDACTOR MACHINE OPERATOR Pulse 57 06/09/2023 8:50 AM BONDACTOR MACHINE OPERATOR Temperature 36.4 ??C (97.5 ??F) 06/09/2023 8:50 AM CS T Respiratory Rate 16 06/09/2023 8:50 AM BONDACTOR MACHINE OPERATOR Oxygen Saturation 98% 06/09/2023 8:50 AM BONDACTOR MACHINE OPERATOR Inhaled Oxygen Concentration - - Weight 96.6 kg (213 lb) 05/20/2023 2:00 PM BONDACTOR MACHINE OPERATOR Height 179.1 cm (5' 10.5 ) 05/20/2023 2:00 PM CS T Body Mass Index 30.13 05/20/2023 2:00 PM BONDACTOR MACHINE OPERATOR documented in this encounter Discharge Instructions * Discharge Instructions* Higinio Foley MD - 06/09/2023 8:53 AM BONDACTOR MACHINE OPERATOR POST- OPERATIVE INSTRUCTIONS 1. Lie on [...] NOT NORMAL, and should be reported immediately. ACTOR MACHINE OPERATOR * Attachments The following attachments cannot be sent through Care Everywhere. * [facility] AFTER SURGERY documented [...] kidney disease) stage 3, GFR 30-59 ml/min ([facility]) Take 1 tablet (25 mg total) by [...] disease, without long-term current use of insulin ([facility]) TAKE 1 TABLET BY MOUTH DAILY 30 [...] EXTRACTION CATARACT - PHACOEMULSIFICATION AND LENS IMPLANT ACTOR MACHINE OPERATOR Source Note - Higinio Foley MD - 06/04/2023 7:52 AM BONDACTOR MACHINE OPERATOR This patient is a 82 y/o [...] cataract OD Plan: Proceed with phaco/IOL OD ACTOR MACHINE OPERATOR * Higinio Foley MD - 06/04/2023 [...] cataract OD Plan: Proceed with phaco/IOL OD ACTOR MACHINE OPERATOR documented in this encounter Miscellaneous Notes [...] to outpatient recovery i n good condition. ACTOR MACHINE OPERATOR * Brief Op Note - Higinio Foley MD - 06/09/2023 8:37 AM CST Operative Progress Note Surgical Team: Surgeons and Role: * Higinio Foley MD - Primary Anesthesiologist: Brett Anthony MD HIGH VALUE ASSOCIATE: Wyatt Zavaleta CRNA Vocational Auto Body Instructor: Tom Renner RN Scrub: Jasmina Strauss RN; [...] Implant Name Type Inv. Item Serial No. Catalyst Impregnator Lot No. LRB No. Used Action [employer] Lens Iol CNA0t0.195 [employer] CNA0T0.195 - [id number] - [id number] Lens [employer] Lens Iol CNA0t0.195 [employer] CNA0T0.195 [id number] [employer] Right 1 Implanted Blood/Blood Products Transfused: 0 mls Complications: None Condition on Discharge from the operating room was stable Higinio Foley MD Date: 06/09/2023 Time: 8:52 AM No Resident involved on case ACTOR MACHINE OPERATOR * Pre-Procedure Instructions - Vale Campbell NP - 06/02/2023 12:36 PM CST [facility] CPAP Clinic Location: [facility] The night before your [...] going to be admitted after surgery at [facility], COVID testing may be performed on the day of surgery, even if you are up to date on your COVID-19 vaccine. * If having surgery at [facility], you may want to bring a credit card if you want to use our Mobile Pharmacy for your discharge medications. Mobile pharmacy is not available at [facility], the Orthopedic Center, or the [place] for [facility]. Outpatient Surgery: * You must have a [...] day of surgery Accu-Chek Fastclix Lancet [facility] Accu-Chek Guide test strips strip ketorolac (ACULAR) [...] with COVID-19. You test positive for COVID-19. ACTOR MACHINE OPERATOR * Perioperative Nursing Note - Valencia Whitaker RN - 05/20/2023 2:06 PM BONDACTOR MACHINE OPERATOR Center for Preoperative Assessment and Planning [...] topically nightly Implants Type Not Specified [employer] Lens Iol Cna0t0.200 [employer] [facility] Cna0t0.200 - [id number] - [id number] - Implanted (Left) Eye Inventory item: [employer] Lens Iol CNA0t0.200 [facility] Autonom CNA0T0.200 Model/Catnumber: CNA0T0.200 Serial number: [id number] Catalyst Impregnator: [employer] Device identifier: [id number] Device identifier type: GS1 As of 05/19/2023 [...] DNR/DNI Order: No Patient Requests Assistance: No Communication/Conservator Artifacts Needs Communication Needs: None Assistive Devices/DME: Walker (Rollator for balance) Hearing - Right Ear: Functional Hearing - Left Ear: Functional Discharge Planning Type of Residence: Private residence Living Arrangements: Spouse/significant other Support Systems: Spouse/significant other Assistance Needed: His will drive him and help care for him after surgery. Patient expects to be discharged to:: Private residence EXPERIMENTAL PHYSICIST NO ADDITIONAL COMMENTS/ FOLLOW UP ACTOR MACHINE OPERATOR * Pre-Procedure Instructions - Valencia Whitaker RN - 05/20/2023 2:05 PM BONDACTOR MACHINE OPERATOR [facility] FOR PREOPERATIVE ASSESSMENT AND PLANNING [...] remove nail coverings, artificial nails and nail stateless prior to the day of surgery. You should leave your valuables and any jewelry at home. No metal or piercings are allowed in the operating room. You should bring your insurance card, a photo ID (example: Credit Risk Specialist's License) and a method of payment for [...] Chart. If you are having surgery at [facility], please arrive on the day of [...] Remove nail coverings, artificial nails and nail stateless. Place clean linens on your bed the [...] questions, please call the CPAP Staff at [phone], Wednesday-Wednesday 8am-4:30pm. All patients should read the below section: COVID 19 Updates & Visitor Policy: Please access [email or web address] for the most updated information. Information on [facility] & the [facility] Center: Please view [email or web address] (Patient & Visitor Information) for additional details regarding Advanced Directive forms, AWARE, directions, parking information, lodging, Internet access, dining and more. Information on [facility] or [facility] Surgery [place] ([facility]): Please view [email or web address] (Patient and Visitor Information) for parking/directions and more. For MyChart information, to activate account or password recovery, please go to [email or web address] or call [phone] (toll-free: [phone]), Wed- Wednesday 8am-5pm. Information for Suicide Prevention: National Suicide Prevention Lifeline (5-360- 061-MRJI (7326)) or call or text 743. Chat resources: [facility]org. Surgery Times: For patients having surgery @ [facility] or [facility] Surgery [place] ([facility]), if your surgeon's office has not notified you of your surgery time by NOON THE BUSINESS DAY BEFORE your surgery, please call [phone] and ask for your surgeon's office Dr. Foley. The [facility] Planning ([place]) does not provide arrival times for the day of surgery or provide the duration of surgery. This information is provided by your surgeon'soffice or by the center where you are having surgery. We appreciate your understanding. ACTOR MACHINE OPERATOR documented in this encounter Plan of [...] Chronic Care Management No change(03/23 1:47 PM BONDACTOR MACHINE OPERATOR) No Ingrid Oden, RN Note: Problem: Chronic [...] PHACOEMULSIFICATION AND LENS IMPLANT 06/09/2023 8:30 AM BONDACTOR MACHINE OPERATOR Combined forms of age-related cataract of both eyes POCT GLUCOSE DEVICE Routine 06/09/2023 7 :52 AM BONDACTOR MACHINE OPERATOR documented in this encounter Results * POCT glucose (06/09/2023 7:52 AM BONDACTOR MACHINE OPERATOR) Glucose, POC 139 70 - 199 mg/dL Blood 06/09/2023 7:52 AM BONDACTOR MACHINE OPERATOR 06/09/2023 7:52 AM BONDACTOR MACHINE OPERATOR us Higinio Foley MD LAB POCT ORDERABLES - DEVIC E Final Result [facility] Department [place] [address] documented in this encounter Visit Diagnoses Diagnosis Combined forms of age-related cataract of right eye- Primary Encounter for preadmission testing Combined forms of age-related cataract of both eyes documented in this encounter Admitting Diagnoses Diagnosis Combined forms of age-related cataract of both eyes documented in this encounter Administered Medications Inactive Administered Medications - up to 3 most recent administrations Medication Order MAR Action Action Date Dose Rate Site balanced salt soln no.2 irrig. (BSS) intraocular solution As needed, Starting on Wed06/09/23 at 0837, Intra-Op Given 06/09/2023 8:37 AM BONDACTOR MACHINE OPERATOR 15 mL BSS Plus-lidocaine 0.375%-EPINEPHrine 0.25 mg (Steffi Kelley) preservative free ophthalmic solution (total volume 1 mL) 1 mL, intracameral RIGHT, Once, On Wed06/09/23 at 0815, For 1 dose, Intra-Op, Have available in the OR for surgeon administration in the right eye. Given 06/09/2023 8:37 AM BONDACTOR MACHINE OPERATOR 0.3 mL Carrier Fluids for Secondary Infusion - [...] During Ocular Surgery Given 06/09/2023 7:54 AM BONDACTOR MACHINE OPERATOR 0.3 mL Lactated Ringer's (LR) infusion 30 mL/hr, intravenous, Continuous, Starting on Wed06/09/23 at 0815, Pre-OpIndications:Encounter for preadmission testing lidocaine 1%, BUPivacaine 0.375% preservative free ophthalmic solution (total volume 5 mL) 5 mL, periocular RIGHT , Once, On Wed06/09/23 at 0815, For 1 dose, Pre-Op/Floor, FACIAL Given 06/09/2023 8:30 AM BONDACTOR MACHINE OPERATOR 5 mL lidocaine 1%, BUPivacaine 0.375% preservative free ophthalmic solution (total volume 5 mL) 5 mL, periocular RIGHT , Once, On Wed06/09/23 at 0815, For 1 dose, Pre-Op/Floor, RETROBULBAR Given 06/09/2023 8:29 AM BONDACTOR MACHINE OPERATOR 5 mL moxifloxacin (VIGAMOX) 0.5 % ophthalmic solution As needed, Starting on Wed06/09/23 at 0837, Intra-Op Given 06/09/2023 8:37 AM BONDACTOR MACHINE OPERATOR 4 drops povidone-iodine (BETADINE PREP) 5 % ophthalmic solution As needed, Starting on Wed06/09/23 at 0838, Intra-Op Given 06/09/2023 8:38 AM BONDACTOR MACHINE OPERATOR 30 mL prednisoLONE acetate (PRED FORTE) 1 % ophthalmic suspension As needed, Starting on Wed06/09/23 at 0838, Intra-Op Given 06/09/2023 8:38 AM BONDACTOR MACHINE OPERATOR 4 drops Right Eye sodium chloride 0.9% flush 0.5-20 mL [...] Recently Administered Medications Times are shown in BONDACTOR MACHINE OPERATOR. Scheduled Medication Order 06/07/2023 06/08/2023 06/09/2023 BSS Plus-lidocaine 0.375%-EPINEPHrine 0.25 mg (Steffi Mackenzieh) preservative free ophthalmic solution (total volume 1 [...] 1 06/09/2023 Lactated Ringer's (LR) infusion 1 4 sodium chloride 0.9% flush 0.5-20 mL 1 05/14 documented in this encounter Care Teams Community Service Officer Relationship Specialty Start Date End Date Kraig Ching MD [address] [place] [address] PCP - General 07/10/16 PicusGautam MD [email or web address] [place] [address] Medical Oncologist/Label Printer Medical Oncology 08/18/18 Tramaine Roe MD [address] [place] [address] Referring Physician Urology 08/18/18 Sukhwinder Uribe MD [email or web address] [place] [address] Consulting Physician Urology 08/18/18 Shay Guillermo MD [address] [facility] [address] [address] [place] [address] Referring Physician Urology 08/18/18 Marsha Landis, RN Registered Nurse 11/17/18 documented as of this encounter
--- OUTSIDE RECORDS SUMMARY | 2024-03-31 04:53 | XMS_ITS | Encounter Summary ---
Author Organization [facility] [employer] [facility] Address [address] [place] [address] Phone Care Team Providers Care Millwright Helper Name Role Phone Kraig Ching MD Primary Care Provider [phone] Gautam Cope MD Unavailable Tramaine Roe MD Unavailable [phone] Sukhwinder Uribe MD Unavailable [phone] Shay Guillermo MD Unavailable [phone] Marsha Landis RN Unavailable Unavailab le Reason for Visit * Episode Based Medications (Routine) - Authorized Specialty Diagnoses / Procedures Referred By Saleem t Referred To Contact Oncology Diagnoses Prostate cancer (HCC) Procedures [place] LEUPROLIDE ACETATE SUSPNSION Leuprolide Every 3 Months - Prostate Gautam Cope MD [address] [place] [address] Phone: tel: fax: [facility] - Infusion [address] [facility] [address] [place] [address] Referral ID Status Reason Start Date Expiration Date V isits Requested Visits Authorized [id number] Authorized 09/06/2018 07/11/2024 1 50 Encounter Details Date Type Department Care Team (Late st Contact Info) Description 05/04/2023 12:00 PM NATIONAL ACCOUNT EXECUTIVE Infusion [facility] Oncology [address] [facility] 7th [place] [address] Prostate cancer (HCC) (Primary Dx) [...] on file 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 NATIONAL ACCOUNT EXECUTIVE Gender Identity Not on file Sexual Orientation Not on file documented as of this encounter Nursing Notes * Nalini Isbell, SHEA - 05/04/2023 12:00 PM CST Oncology Nursing Note [facility] ONCOLOGY David Wei is a 82 y.o. male who presents for the following injection: Eligard 22.5 mg to the Left Abd. Nursing Assessment Nursing Assessment LOC: Alert, Awake Fatigue: Constant Any falls since your last visit?: No Orientation: Oriented x4 Behavior: Calm Speech: Clear Language: No aphasia Vision: At baseline Peripheral Neuropathy: No Oral Mucosa Grade: Normal (0) Pt states has potential to be ?: N/A Shortness of Breath?: Yes (with exertion) Lungs auscultated PRN: No Pt is on oxygen?: No Respiratory Effort Characteristics: Dyspnea exertion Cough: Absent Appetite: Good What diet do you follow at home?: vegetarian Have You Recently Lost Weight Without Trying?: No Have you been eating poorly because of a decreased appetite?: No Malnutrition Screening Tool (MST) Score: 0 Nausea/Vomiting: No Abdomen: Soft Diarrhea: No Constipation: No Last BM Date: 05/04/23 Skin Condition/Temp: Warm, Dry Swelling: No Additional Notes: BP: 122/72 Temp: 36.4 ??C (97.6 ??F) Temp src: Oral Pulse: 65 Resp: 14 SpO2: 96 % Weight: 97 kg (213 lb 12.8 oz) Patient: met treatment parameters David Eric Wei tolerated injection well Additional Notes: Discharge Plan Discharge instructions given to patient. Discharge Mode: using wheelchair for balance Accompanied by: family Discharged To: Home ONAL ACCOUNT EXECUTIVE documented in this encounter Plan of Treatment [...] to monitor diabetes and kidney status, etc. [facility] Chronic Pain Care Plan Chronic Care Management No change(03/23 1:47 PM NATIONAL ACCOUNT EXECUTIVE) No Ingrid Oden, SHEA Note: Problem: Chronic [...] 22.5 mg 22.5 mg, subcutaneous, Once, On Wed05/04/23 at 1200, For 1 dose, For subcutaneous use only. Allow product to reach room temperature before using.Indications:Prosta te cancer (HCC) Given 05/04/2023 11:47 AM NATIONAL ACCOUNT EXECUTIVE 22.5 mg Left Lower Abdomen documented in this encounter Orders Medications Ordered That Adiel ht Not Have Been Administered Count Last Ordered Date First Ordered Date leuprolide (3 month) (ELIGAR D) subcutaneous injection 22.5 mg 1 05/04/2023 Nursing Count Last Ordered Date First Orde red Date ONCBCN TREATMENT PARAMETERS 2 1 05/04/2023 Appointment Requests Count Last Ordered Date Fi rst Ordered Date ONCBCN INJECTION APPOINTMENT REQUEST 1 04/13 documented in this encounter Care Teams Millwright Helper Relationship Specialty Start Date End Date Kraig Ching MD [address] [address] PCP - General 07/10/16 Gautam Cope MD [address] [facility] [facility] [address] [place] [address] Medical Oncologist/Wire Inspector Medical Oncology 08/18/18 Tramaine Roe MD [address] [place] [address] Referring Physician Urology 08/18/18 Sukhwinder Uribe MD [address] [place] [address] Consulting Physician Urology 08/18/18 Shay Guillermo MD [address] [place] [address] Referring Physician Urology 08/18/18 Marsha Landis, RN Registered Nurse 11/17/18 documented as of this encounter
--- OUTSIDE RECORDS SUMMARY | 2024-03-31 04:53 | XMS_ITS | Encounter Summary ---
Author Organization [facility] Healthcare Address [address] [place] [address] Care Team Providers Care Burr Bench Operator Name Role Phone Kraig Ching MD Primary Care Provider [phone] Gautam Cope MD Unavailable Tramaine Roe MD Unavailable Sukhwinder Uribe MD Unavailable [phone] Shay Guillermo MD Unavailable [phone] Marsha Landis RN Unavailable Unavailab le Reason for Referral * MRI/CAT/PET Scan (Routine) - Closed Specialty Diagnoses / Procedures Referred By Saleem narvaez Referred To Contact Radiology Diagnoses Prostate cancer (HCC) Procedures CT chest without contrast Gautam Cope MD [address] [address] Phone: tel: fax: [address] [address] Referral ID Status Reason Start Date Expiration Date Visits Re quested Visits Authorized [id number] Closed 02/01/2023 03/02/2024 1 1 LEADER Reason for Visit * MRI/CAT/PET Scan (Routine) - Closed Specialty Diagnoses / Procedures Referred By Saleem narvaez Referred To Contact Radiology Diagnoses Prostate cancer (HCC) Procedures CT chest without contrast Gautam Cope MD [id number] [place] [address] Phone: tel: fax: [facility] [address] [facility] [place] [address] Referral ID Status Reason Start Date Expiration Date Visits Re quested Visits Authorized [id number] Closed 02/01/2023 03/02/2024 1 1 Encounter Details Date Type Department Care Team (Latest Contact Info) Description 06/15/2023 11:43 AM BAND LEADER - 06/15/2023 11:59 PM BAND LEADER Hospital Encounter [facility] [address] [place] [address] Gautam Cope MD [address] [facility] [address] [place] [address] Prostate cancer (HCC) Discharge Disposition: Discharge to [...] on file 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 BAND LEADER Gender Identity Not on file Sexual Orientation [...] monitor diabetes and kidney status, etc. [facility] Chronic Pain Care Plan Chronic Care Management No change(03/23 1:47 PM BAND LEADER) No Ingrid Oden, RN Note: Problem: Chronic Pain Goals: 1. Minimize further functional decline 2. Maximize quality of life 3. Control pain Strategies: - Activity/exercise program recommendation - Conservative stepwise pain medicine strategy with multi-disciplinary approach - Recommend healthy lifestyle strategies and compensatory methods as needed documented as of this encounter Procedures Procedure Name Priority Date/Time Associated Diagnosis Comments CT CHEST WO CONTRAST Schedule Routine, Read Routine (OP Routine) 06/15/2023 12:09 PM BAND LEADER Prostate cancer (HCC) documented in this encounter Results * CT chest without contrast (06/15/2023 12:09 PM BAND LEADER) Anatomical Region Laterality Modality Body N/A Computed Tomogra phy 06/15/2023 12:2 5 PM BAND LEADER Impressions 06/15/2023 12:25 PM BAND LEADER Stable areas of groundglass opacity, likely benign. Calcification of the aortic valve and coronary arteries. Electronically signed by: Masood Galdamez M.D. Narrative 06/15/2023 12:25 PM BAND LEADER EXAMINATION: Computed tomography of the chest without intravenous contrast material HISTORY: Follow-up groundglass opacity in the right lung. TECHNIQUE: CT scan of the chest was performed without intravenous contrast material following standard protocol. FINDINGS:. Noted again, is a 5 mm area of groundglass opacity in the right upper lobe table position -1107.1, slightly smaller than before, Another small area of groundglass opacity in the right lower lobe, table position -1029.1 is stable, measuring 5 mm in diameter. No other suspicious pulmonary nodules are seen. ??There is a peripheral 1 cm cyst in the right upper lobe anteriorly. Minimal dependent bibasilar atelectasis. Mediastinal windows demonstrate no supraclavicular, mediastinal, or hilar lymphadenopathy. There is calcification of the aortic valve and coronary arteries. Upper abdomen:. The upper abdomen is normal. Bones:. Degenerative spine changes. Procedure Note Masood Galdamez MD - 06/15/2023 EXAMINATION: Computed tomography of the chest without intravenous contrast material HISTORY: Follow-up groundglass opacity in the right lung. TECHNIQUE: CT scan of the chest was performed without intravenous contrast material following standard protocol. FINDINGS:. Noted again, is a 5 mm area of groundglass opacity in the right upper lobe table position -1107.1, slightly smaller than before, Another small area of groundglass opacity in the right lower lobe, table position -1029.1 is stable, measuring 5 mm in diameter. No other suspicious pulmonary nodules are seen. There is a peripheral 1 cm cyst in the right upper lobe anteriorly. Minimal dependent bibasilar atelectasis. Mediastinal windows demonstrate no supraclavicular, mediastinal, or hilar lymphadenopathy. There is calcification of the aortic valve and coronary arteries. Upper abdomen:. The upper abdomen is normal. Bones:. Degenerative spine changes. IMPRESSION: Stable areas of groundglass opacity, likely benign. Calcification of the aortic valve and coronary arteries. Electronically signed by: Masood Galdamez M.D. Gautam Cope MD IMG CT PROCEDURES Final Result documented in this encounter Visit Diagnoses Diagnosis Prostate cancer (HCC) Malignant neoplasm of prostate documented in this encounter Care Teams Burr Bench Operator Relationship Specialty Start Date End Date Kraig Ching MD [address] [place] [address] PCP - General 07/10/16 Gautam Cope MD [address] [place] [address] Medical Oncologist/Employment Security Officer Medical Oncology 08/18/18 Tramaine Roe MD [address] [place] [address] Referring Physician Urology 08/18/18 Sukhwinder Uribe MD [address] [place] [address] Consulting Physician Urology 08/18/18 Shay Guillermo MD [address] [place] [address] Referring Physician Urology 08/18/18 Marsha Landis, RN Registered Nurse 11/17/18 documented as of this encounter
--- OUTSIDE RECORDS SUMMARY | 2024-03-31 04:53 | XMS_ITS | Encounter Summary ---
Author Organization [facility] Address [address] [place] [address] Phone Care Team Providers Care Commercial Art Instructor Name Role Phone Kraig Ching MD Primary Care Provider [phone] Gautam Cope MD Unavailable Tramaine Roe MD Unavailable [phone] Sukhwinder Uribe MD Unavailable Shay Guillermo MD Unavailable [phone] Marsha Landis RN Unavailable Unavailab le Reason for Visit * Reason Comments Post-op - Cataract Encounter Details Date Type Department Care Team (Late st Contact Info) Description 06/10/2023 8:30 AM HAT BLOCK BENCH HAND Office Visit [facility] Ophthalmology [address] [facility] 2nd [address] [place] [address] Higinio Connolly MD [address] [facility] [address] [place] [address] Pseudophakia of both eyes (Primary Dx) Social History Tobacco Use Types [...] on file 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 HAT BLOCK BENCH HAND Gender Identity Not on file Sexual Orientation Not on file documented as of this encounter Progress Notes * Higinio Connolly MD - 06/10/2023 8:30 AM CST Impression: Stable post operative day #1 status post (s/p) phaco/IOL right eye (OD) Plan: Post-op instructions discussed. Start Moxifloxacin, Ketorolac, and Prednisone 1% OD TID. Return in two weeks or prn for post-op visit. BLOCK BENCH HAND documented in this encounter Plan of Treatment [...] to monitor diabetes and kidney status, etc. [facility] Chronic Pain Care Plan Chronic Care Management No change(03/23 1:47 PM HAT BLOCK BENCH HAND) No Ingrid Oden, RN Note: Problem: Chronic [...] eyes- Primary Lens replaced by other means documented in this encounter Eye Exam Visual Acuity (Snellen - Linear) Right eye Left eye Dist sc 20/40 Dist ph sc 20/25 +2 Tonometry (Applanation, 8:34 AM) Right eye Left eye Pressure 22 Slit Lamp Exam Right eye Left eye Lids/Lashes Normal Conjunctiva/Sclera 1+ Injection Cornea 1+ Descemet's folds Anterior Chamber Deep, 1+ Cell, 1+ Flare Iris Dilated Lens Posterior chamber in traocular lens, no Posterior capsular opacification Care Teams Commercial Art Instructor Relationship Specialty Start Date End Date Kraig Ching MD [address] [facility] [address] [place] [address] PCP - General 07/10/16 Gautam Cope MD [address] [facility] [address] [place] [address] Medical Oncologist/System Sales Consultant Medical Oncology 08/18/18 Tramaine Roe MD [address] [facility] [address] [place] [address] Referring Physician Urology 08/18/18 Sukhwinder Uribe MD [address] [facility] [address] [place] [address] Consulting Physician Urology 08/18/18 Shay Guillermo MD [address] [facility] [address] [place] [address] Referring Physician Urology 08/18/18 Marsha Landis, RN Registered Nurse 11/17/18 documented as of this encounter
--- OUTSIDE RECORDS SUMMARY | 2024-03-31 04:53 | XMS_ITS | Encounter Summary ---
Author Organization [facility] Address [address] [place] [address] Phone Care Team Providers Care Food Preparation Worker Name Role Phone Kraig Ching MD Primary Care Provider Gautam Cope MD Unavailable Tramaine Roe MD Unavailable [phone] Sukhwinder Uribe MD Unavailable [phone] Shay Guillermo MD Unavailable [phone] Marsha Landis RN Unavailable Unavailab le Encounter Details Date Type Department Care Team (Late st Contact Info) Description 07/12/2023 Orders Only [facility] Oncology [address] [place] [address] Gautam Cope MD [address] [facility] [address] [place], [place] [id number] Prostate cancer (HCC) (Primary Dx) Social History [...] on file 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 Take 4 tablets (1,000 mg total) by mouth daily Take with a glass of water, on an empty stomach at least 1 hr before or 2 hrs after food. 120 tablet 6 07/12/2023 4 documented in this encounter Plan of Treatment [...] Ilene Fragoso RN Note: Problem: Knowledge deficit - Complications [...] to monitor diabetes and kidney status, etc. [facility] Chronic Pain Care Plan Chronic Care Management No change(03/23 1:47 PM LAUNDRY BAG PUNCH OPERATOR) No Ingrid Oden, SHEA Note: Problem: [...] neoplasm of prostate documented in this encounter Discontinued Medications Medication Sig Discontinue Reason Start Date End Da te abiraterone (ZYTIGA) 250 mg tabletIndications:Prost ate cancer (HCC) Take 4 tablets (1,000 mg) by mouth daily. Do not eat anything for at least 2 hours before and for at least 1 hour after Other 03/12/2023 07/12/2023 documented as of this encounter Care Teams Food Preparation Worker Relationship Specialty Start Date End Date Kraig Ching MD [address] [facility] [address] [place] [address] PCP - General 07/10/16 Gautam Cope MD [address] [facility] [address] [place] [address] Medical Oncologist/Cloth Bleaching Range Operator Chief Medical Oncology 08/18/18 Tramaine Roe MD [id number] [place] [address] Referring Physician Urology 08/18/18 Sukhwinder Uribe MD [id number] [place] [address] Consulting Physician Urology 08/18/18 Shay Guillermo MD [address] [facility] [address] [place] [address] Referring Physician Urology 08/18/18 Marsha Landis, RN Registered Nurse 11/17/18 documented as of this encounter
--- OUTSIDE RECORDS SUMMARY | 2024-03-31 04:53 | XMS_ITS | Encounter Summary ---
Author Organization [facility] Address [address] [place] [address] Phone Care Team Providers Care Etch Operator Semiconductor Wafers Name Role Phone Kraig Ching MD Primary Care Provider [phone] Gautam Cope MD Unavailable Tramaine Roe MD Unavailable [phone] Sukhwinder Uribe MD Unavailable [phone] Shay Guillermo MD Unavailable [phone] Marsha Landis RN Unavailable Unavailab le Reason for Visit * Consultation (Routine) - Authorized Specialty Diagnoses / Procedures Referred By Saleem narvaez Referred To Contact Oncology Diagnoses Prostate cancer (HCC) Tramaine Roe MD [address] [facility] [address] [place] [address] Phone: tel: fax: Gautam Cope MD [address] [facility] [address] MEDICAL ONCOLOGY[address] [place] [address] Phone: tel: fax: Referral ID Status Reason Start Date Expiration Date Visits Requested Visits Authorized [id number] Authorized Specialty Services Required 08/15/2018 04/11/2024 99 99 Encounter Details Date Type Department Care Team (Late st Contact Info) Description 05/04/2023 10:15 AM HAND REAMER Lab [facility] Oncology [address] [facility] 7th [place] [address] [place] [address] Prostate cancer (HCC) Social History [...] on file 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 HAND 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 Gender Identity Not on file Sexual Orientation [...] Chronic Care Management No change(03/23 1:47 PM HAND REAMER) No Ingrid Oden, SHEA Note: Problem: Chronic [...] rst Ordered Date ONCBCN LAB APPOINTMENT 1 05/04/2023 documented in this encounter Care Teams Etch Operator Semiconductor Wafers Relationship Specialty Start Date End Date Kraig Ching MD [address] [place], [place] [id number] PCP - General 07/10/16 Gautam Cope MD [address] [place] [address] Medical Oncologist/Cattle Shipper Medical Oncology 08/18/18 Tramaine Roe MD [address] [facility] [address] [place] [address] Referring Physician Urology 08/18/18 Sukhwinder Uribe MD [address] [facility] [address] [place] [address] Consulting Physician Urology 08/18/18 Shay Guillermo MD [address] [facility] [address] [place] [address] Referring Physician Urology 08/18/18 Marsha Landis, RN Registered Nurse 11/17/18 documented as of this encounter
--- OUTSIDE RECORDS SUMMARY | 2024-03-31 04:54 | XMS_ITS | Encounter Summary ---
Author Organization [facility] Address [address] [place] [address] Phone Care Team Providers Care Trade Sales Assistant Name Role Phone Kraig Ching MD Primary Care Provider [phone] Gautam Cope MD Unavailable Tramaine Roe MD Unavailable [phone] Sukhwinder Uribe MD Unavailable [phone] Shay Guillermo MD Unavailable [phone] Marsha Landis RN Unavailable Unavailab le Encounter Details Date Type Department Care Team (Late st Contact Info) Description 12/18/2022 Telephone [facility] Ophthalmology [address] [facility] [address] [place] [address] Janice Goldman Social History Tobacco Use Types Packs/Day Years Used Date Smoking Tobacco: Former Smokeless Tobacco: Never Comments:Smoking History Pac ks/day: 10 Cigarettes Alcohol Use Standard Drinks/Week Comments Yes 0 (1 standard drink = 0.6 oz pur e alcohol) Occasional glass of wine. AUDIT-C Answer Date Recorded Q1: How often do you have a drink containing alc ohol? Never 12/12/2021 Average Number of Drinks Not on file 022 Frequency of Binge Drinking Not on file 05/2021 Overall Financial Resource Strain (CARDIA) Answe r Date Recorded Difficulty of Paying Living Expenses Not hard at all 04/21/2019 PHQ-2 Answer Date Recorded PHQ-2 Total Score (If total score is 3 or more points, staff should administer the PHQ-9) 0 08/18/2022 Hunger Vital Sign Answer Date Recorded Worried About Running Out of Food in the Last Ye ar Patient declined 04/21/2019 Ran Out of Food in the Last Year Patient decline d 04/21/2019 PRAPARE - Transportation Answer Date Re corded Lack of Transportation (Medical) Patient decline d 04/21/2019 Lack of Transportation (Non-Medical) Patient dec lined 04/21/2019 Sex and Gender Information Value Date Recorded Sex Assigned at Not on file 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 * Telephone Encounter - Janice Goldman - 12/18/2022 11:38 AM CDT ----- Message from Higinio Connolly MD sent at 12/08/2022 3:41 PM CDT ----- Ready to sched surg OU (OS first). Pre op testing done and Rx's sent today. documented in this encounter Plan of Treatment [...] Care Management No change(03/23 1:47 PM HEALTH TYPE TECHNICIAN) No Ingrid Oden, SHEA Note: Problem: Chronic Pain Goals: 1. Minimize further functional decline 2. Maximize quality of life 3. Control pain Strategies: - Activity/exercise program recommendation - Conservative stepwise pain medicine strategy with multi-disciplinary approach - Recommend healthy lifestyle strategies and compensatory methods as needed documented as of this encounter Visit Diagnoses Not on filedocumented in this encounter Care Teams Trade Sales Assistant Relationship Specialty Start Date End Date Kraig Ching MD [address] [employer] [address] [place] [address] PCP - General 07/10/16 Gautam Cope MD [address] [facility] [address] [place] [address] Medical Oncologist/Outreach Specialist Medical Oncology 08/18/18 Tramaine Roe MD [address] [facility] [address] [place] [address] Referring Physician Urology 08/18/18 Sukhwinder Uribe MD [address] [facility] [address] [place] [address] Consulting Physician Urology 08/18/18 Shay Guillermo MD [address] [facility] [address] [place] [address] Referring Physician Urology 08/18/18 Marsha Landis, RN Registered Nurse 11/17/18 documented as of this encounter
--- OUTSIDE RECORDS SUMMARY | 2024-03-31 04:54 | XMS_ITS | Encounter Summary ---
Author Organization [facility] Address [address] [place] [address] Phone Care Team Providers Care Key Ringer Name Role Phone Kraig Ching MD Primary Care Provider [phone] Gautam Cope MD Unavailable Tramaine Roe MD Unavailable [phone] Sukhwinder Uribe MD Unavailable [phone] Shay Guillermo MD Unavailable [phone] Marsha Landis RN Unavailable Unavailab le Encounter Details Date Type Department Care Team (Late st Contact Info) Description 02/05/2023 Telephone [facility] Ophthalmology [address] [facility] 2nd Floor [address] [place] [address] Janice Goldman Social History Tobacco Use Types [...] you have a drink containing alc ohol? 2-4 times a month 01/26/2023 Q2: How many drinks containi ng alcohol do you have on a typical day when you are drinking? 1 or 2 01/26/2023 Q3: How often do you have si x or more drinks on one occasion? 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 * Telephone Encounter - Janice Goldman - 02/05/2023 10:43 AM CDT ----- Message from Vale Campbell NP sent at 02/04/2023 2:43 PM CDT ----- Regarding: CPAP Message-- WIEDER The patient is on aspirin therapy for primary prevention. The bleeding risk for the planned procedure is insignificant and therefore aspirin can be continued throughout the periprocedural period. Please call the CPAP chart room clinician ([phone]) with any questions. ##Please FU with pt regarding above issue(s)-- Please instruct pt on final recs for aspirin. >NOTE: There is no need to reply to this message but if you would like to send a non-urgent reply, please address it to the [facility] staff message POOL address [facility] CPAP PHOTOENGRAVING ETCHER APPRENTICE (number [phone]). Please note that messages to this address will be replied to within approximately 1 business day. If you have an urgent reply, please call the CPAP at [phone]. documented in this encounter Plan of Treatment [...] Chronic Care Management No change(03/23 1:47 PM ONLINE MARKETING ANALYST) No Ingrid Oden, RN Note: Problem: Chronic Pain Goals: 1. Minimize further functional decline 2. Maximize quality of life 3. Control pain Strategies: - Activity/exercise program recommendation - Conservative stepwise pain medicine strategy with multi-disciplinary approach - Recommend healthy lifestyle strategies and compensatory methods as needed documented as of this encounter Visit Diagnoses Not on filedocumented in this encounter Care Teams Key Ringer Relationship Specialty Start Date End Date Kraig Ching MD [address] [facility] [address] [place] [address] PCP - General 07/10/16 Gautam Cope MD [address] [facility] [address] [place] [address] Medical Oncologist/Tractor Technician Medical Oncology 08/18/18 Tramaine Roe MD [address] [facility] [address] [place] [address] Referring Physician Urology 08/18/18 Sukhwinder Uribe MD [address] [facility] [address] [place] [address] Consulting Physician Urology 08/18/18 Shay Guillermo MD [address] [facility] [address] [place] [address] Referring Physician Urology 08/18/18 Marsha Landis, RN Registered Nurse 11/17/18 documented as of this encounter
--- OUTSIDE RECORDS SUMMARY | 2024-03-31 04:54 | XMS_ITS | Encounter Summary ---
Author Organization [facility] Address [address] [place] [address] Phone Care Team Providers Care Hand Cooper Helper Name Role Phone Kraig Ching MD Primary Care Provider [phone] Gautam Cope MD Unavailable Tramaine Roe MD Unavailable [phone] Sukhwinder Uribe MD Unavailable [phone] Shay Guillermo MD Unavailable [phone] Marsha Landis RN Unavailable Unavailab le Reason for Visit * Consultation (Routine) - Authorized Specialty Diagnoses / Procedures Referred By Saleem narvaez Referred To Contact Oncology Diagnoses Prostate cancer (HCC) Tramaine Roe MD [address] [facility] [address] [place] [address] Phone: tel: fax: Gautam Cope MD [address] [facility] IM MEDICAL ONCOLOGY, [address] [place] [address] Phone: tel: fax: Referral ID Status Reason Start Date Expiration Date Visits Requested Visits Authorized [id number] Authorized Specialty Services Required 08/15/2018 04/11/2024 99 99 Encounter Details Date Type Department Care Team (Late st Contact Info) Description 02/09/2023 10:[address] 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 [facility] Chronic Pain Care Plan Chronic Care Management No change(03/23 1:47 PM HORSE RACE STARTER) No Ingrid Oden, SHEA Note: Problem: Chronic [...] rst Ordered Date ONCBCN LAB APPOINTMENT 1 02/09/2023 documented in this encounter Care Teams Hand Cooper Helper Relationship Specialty Start Date End Date Kraig Ching MD [address] [place], [place] [id number] PCP - General 07/10/16 Gautam Cope MD [address] [place] [address] Medical Oncologist/Cyber Security Architect Medical Oncology 08/18/18 Tramaine Roe MD [address] [facility] [address] [place] [address] Referring Physician Urology 08/18/18 Sukhwinder Uribe MD [address] [facility] [address] [place] [address] Consulting Physician Urology 08/18/18 Shay Guillermo MD [address] [facility] [address] [place] [address] Referring Physician Urology 08/18/18 Marsha Landis, RN Registered Nurse 11/17/18 documented as of this encounter
--- OUTSIDE RECORDS SUMMARY | 2024-03-31 04:54 | XMS_ITS | Encounter Summary ---
Author Organization [facility] Address [address] [facility] [address] [place] [address] Care Team Providers Care Private Security Guard Name Role Phone Kraig Ching MD Primary Care Provider [phone] Gautam Cope MD Unavailable Tramaine Roe MD Unavailable [phone] Sukhwinder Uribe MD Unavailable [phone] Shay Guillermo MD Unavailable Marsha Lnadis RN Unavailable Unavailab le Reason for Visit * Reason Comments Cough Cold Symptoms X 10 days Shortness of Breath Encounter Details Date Type Department Care Team (Late st Contact Info) Description 01/01/2023 10:00 AM CDT Office Visit [facility] [address] [facility] [address] [place] [address] Mary Ellen Stone NP [address] [facility] [address] [place], [place] [id number] Symptoms of upper respiratory infection (URI) (Primary Dx); Bilateral rales Social History Tobacco Use Types Packs/Day Years [...] on file 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 Gender Identity Not on file Sexual Orientation Not on file documented as of this encounter Last Filed Vital Signs Vital Sign Reading Time Taken Comments Blood Pressure 162/84 01/01/2023 9:52 AM CDT Pulse 67 01/01/2023 9:52 AM CDT Temperature 36.4 ??C (97.6 ??F) 01/01/2023 9:52 AM CD T Respiratory Rate 24 01/01/2023 9:52 AM CDT Oxygen Saturation 95% 01/01/2023 9:52 AM CDT Inhaled Oxygen Concentration - - Weight 98.3 kg (216 lb 12.8 oz) 01/01/2023 9:52 AM CDT Height 177.8 cm (5' 10 ) 01/01/2023 9:52 AM CDT Body Mass Index 31.11 01/01/2023 9:52 AM CDT documented in this encounter Ordered Prescriptions Prescription Sig Dispense Quantity Refills Last Filled Start Date End Date doxycycline (VIBRAMYCIN) 100 mg capsuleIndications: Bilateral rales,Symptoms of upper respiratory infection (URI) Take 1 tablet/caps ule (100 mg total) by mouth 2 (two) times a day for 10 days 20 tablet/capsule 01/01/2023 01/11/2023 documented in this encounter Progress Notes * Mary Ellen Stone NP - 01/01/2023 10:00 AM CDT Images from the original note were not included. David Wei, a 82 y.o. male presents to clinic with a Chief Complaint of upper respiratory symptoms HPI Patient reports at least 10 days of persisting upper respiratory symptoms and deep productive cough. Subjective Allergies Allergen Reactions Atorvastatin Muscle pain Review of Systems Constitutional: Positive for appetite change and fatigue. Negative for chills, diaphoresis and fever. HENT: Positive for congestion, postnasal drip and rhinorrhea. Negative for ear discharge, ear pain,mouth sores, nosebleeds, sinus pressure, sinus pain, sneezing, sore throat and trouble swallowing. Eyes: Negative. Respiratory: Positive for cough, chest tightness and shortness of breath. Negative for wheezing. Cardiovascular: Negative. Gastrointestinal: Negative. Genitourinary: Negative for dysuria. Musculoskeletal: Negative. Skin: Negative. Negative for pallor. Allergic/Immunologic: Negative. Neurological: Positive for headaches. Negative for weakness. Hematological: Negative. Psychiatric/Behavioral: Negative for sleep disturbance. Objective BP 162/84 (BP Location: Right arm, Patient Position: Sitting) Pulse 67 Temp 36.4 ??C (97.6 ??F)(Oral) Resp 24 Ht 177.8 cm (5' 10 ) Wt 98.3 kg (216 lb 12.8 oz) SpO2 95% BMI 31.11 kg/m?? BP Readings from Last 3 Encounters: 01/01/23 162/84 11/17/22 130/68 08/25/22 168/90 Physical Exam Vitals reviewed. Constitutional: General: He is not in acute distress. Appearance: Normal appearance. He is obese. He is not ill-appearing, toxic- appearing or diaphoretic. HENT: Right Ear: Tympanic membrane normal. Left Ear: Tympanic membrane normal. Nose: Nose normal. Right Sinus: No maxillary sinus tenderness or frontal sinus tenderness. Left Sinus: No maxillary sinus tenderness or frontal sinus tenderness. Mouth/Throat: Mouth: Mucous membranes are moist. Pharynx: Oropharynx is clear. Uvula midline. No posterior oropharyngeal erythema. Tonsils: No tonsillar exudate. Eyes: Conjunctiva/sclera: Conjunctivae normal. Pupils: Pupils are equal, round, and reactive to light. Cardiovascular: Rate and Rhythm: Normal rate and regular rhythm. Heart sounds: Normal heart sounds. Pulmonary: Effort: Pulmonary effort is normal. No respiratory distress. Breath sounds: Examination of the right-upper field reveals rales. Examination of the left-upper field reveals rales. Examination of the right-middle field reveals rales. Examination of the left-middle field reveals rales. Examination of the right-lower field reveals rales. Examination of the left-lower field reveals rales. Decreased breath sounds and rales present. No wheezing. Lymphadenopathy: Cervical: Cervical adenopathy present. Right cervical: Superficial cervical adenopathy present. Left cervical: Superficial cervical adenopathy present. Skin: General: Skin is warm. Coloration: Skin is not pale. Neurological: General: No focal deficit present. Mental Status: He is alert. Psychiatric: Mood and Affect: Mood normal. Behavior: Behavior normal. Assessment/Plan Diagnoses and all orders for this visit: Symptoms of upper respiratory infection (URI) (Primary) Comments: Suspect sinusitis and/or pneumonia. Start 10 days doxy. Orders: - XR Chest Pa Lateral 2 Views; Future - doxycycline (VIBRAMYCIN) 100 mg capsule; Take 1 tablet/capsule (100 mg total) by mouth 2 (two) times a day for 10 days Bilateral rales Comments: Prominent in all abebe. Suspicious for PNA. Chest x-ray. Consider additional intervention based onfindings. Orders: - XR Chest Pa Lateral 2 Views; Future - doxycycline (VIBRAMYCIN) 100 mg capsule; Take 1 tablet/capsule (100 mg total) by mouth 2 (two) times a day for 10 days This note may have been completed using dictation software and may not have been proofread for grammatical accuracy. Please contact author with any questions. Mary Ellen Stone NP documented in this encounter Plan of Treatment [...] Chronic Care Management No change(03/23 1:47 PM SHIRT MAKER) No Ingrid Oden, SHEA Note: Problem: Chronic Pain Goals: 1. Minimize further functional decline 2. Maximize quality of life 3. Control pain Strategies: - Activity/exercise program recommendation - Conservative stepwise pain medicine strategy with multi-disciplinary approach - Recommend healthy lifestyle strategies and compensatory methods as needed documented as of this encounter Results * XR Chest Pa Lateral 2 Views (01/01/2023 10:25 AM CDT) Anatomical Region Laterality Modality Body, Chest N/A Computed Radiogr aphy 01/01/2023 11:2 8 AM CDT Impressions 01/01/2023 11:46 AM CDT Comparison made to CT 06/02/2022. Heart size is upper limits of normal. Lungs are clear. No pleural effusion or pneumothorax. Dictated by: Joseph Crenshaw M.D. The radiology attending physician has personally reviewed this study, and had reviewed and/or edited this written report and agrees with it. Electronically signed by: Mina Jolly M.D. Narrative 01/01/2023 11:46 AM CDT EXAMINATION: 2 view chest radiograph Procedure Note Mina Jolly MD - 01/01/2023 EXAMINATION: 2 view chest radiograph IMPRESSION: Comparison made to CT 06/02/2022. Heart size is upper limits of normal. Lungs are clear. No pleural effusion or pneumothorax. Dictated by: Joseph Crenshaw M.D. The radiology attending physician has personally reviewed this study, and had reviewed and/or edited this written report and agrees with it. Electronically signed by: Mina Jolly M.D. us Mary Ellen Stone CATARACT LENS GENERATOR IMG XR PROCEDURES Final Resul t documented in this encounter Visit Diagnoses Diagnosis Symptoms of upper respiratory infection (URI)- Primary Bilateral rales Bilateral rales Symptoms of upper respiratory infection (URI) documented in this encounter Historical Medications * This list may reflect changes made after this encounter. PreviDent 5000 Plus 1.1 % creamIndications :Prevention of Dental Caries Apply topically nightly 12/10/2022 added in this encounter Care Teams Private Security Guard Relationship Specialty Start Date End Date Kraig Ching MD [address] [place] [address] PCP - General 07/10/16 Gautam Cope MD [address] [place] [address] Medical Oncologist/Flower Pot Press Operator Medical Oncology 08/18/18 Tramaine Roe MD [address] [place] [address] Referring Physician Urology 08/18/18 Sukhwinder Uribe MD [address] [place] [address] Consulting Physician Urology 08/18/18 Shay Guillermo MD [address] [facility] [address] [place] [address] Referring Physician Urology 08/18/18 Marsha Landis, RN Registered Nurse 11/17/18 documented as of this encounter
--- OUTSIDE RECORDS SUMMARY | 2024-03-31 04:54 | XMS_ITS | Encounter Summary ---
Author Organization [facility] Address [address] [place] [address] Phone Care Team Providers Care Supervisor Stave Cutting Name Role Phone Kraig Ching MD Primary Care Provider [phone] Gautam Cope MD Unavailable Tramaine Roe MD Unavailable [phone] Sukhwinder Uribe MD Unavailable Shay Guillermo MD Unavailable [phone] Marsha Landis RN Unavailable Unavailab le Reason for Visit * Reason Onset Date Comments Eye Drops and Aspirin > Med List 11/18/2022 Encounter Details Date Type Department Care Team (Late st Contact Info) Description 11/18/2022 Telephone [facility] Oncology [facility] Advanced Medicine 7th [place] [address] [place] [address] Ladi Bunch RN Eye Drops and Aspirin > Med List Social History Tobacco Use Types Packs/Day Years [...] on file 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 Wei called me today, 11/18/22, because at his visit with Dr. Cope on 11/17/22, he noticed on his AVS that his Xalatan and Travatan eyedrops, as well as aspirin, were removed from his medication list. I told Mr. Wei that there was an indication made by the medical assistantthat the patient was no longer taking the eyedrops (10/30/22) and the aspirin prescription had expir ed in 2019. Mr. Wei told me that he in fact is still taking the two eyedrops, Xalatan and Travatan, and he still takes an 81 mg aspirin daily, but it is not prescribed by a provider--he takes it on his own. I told Mr. Wei that he should continue to take his eyedrops as prescribed, and, if he continues with a daily aspirin, he should always report that, especially if he anticipates any surgery in the future (such as cataract surgery). documented in this encounter Plan of Treatment [...] to monitor diabetes and kidney status, etc. [facility] Chronic Pain Care Plan Chronic Care Management No change(03/23 1:47 PM INTELLIGENCE INTERN) No Ingrid Oden, SHEA Note: Problem: Chronic Pain Goals: 1. Minimize further functional decline 2. Maximize quality of life 3. Control pain Strategies: - Activity/exercise program recommendation - Conservative stepwise pain medicine strategy with multi-disciplinary approach - Recommend healthy lifestyle strategies and compensatory methods as needed documented as of this encounter Visit Diagnoses Not on filedocumented in this encounter Care Teams Supervisor Stave Cutting Relationship Specialty Start Date End Date Kraig Ching MD [address] [facility] [address] [place] [address] PCP - General 07/10/16 Gautam Cope MD [address] [facility] [address] [place] [address] Medical Oncologist/Plant Attendant Medical Oncology 08/18/18 Tramaine Roe MD [address] [facility] [address] [place] [address] Referring Physician Urology 08/18/18 Sukhwinder Uribe MD [address] [facility] [address] [place] [address] Consulting Physician Urology 08/18/18 Shay Guillermo MD [address] [facility] [address] [place] [address] Referring Physician Urology 08/18/18 Marsha Landis, RN Registered Nurse 11/17/18 documented as of this encounter
--- OUTSIDE RECORDS SUMMARY | 2024-03-31 04:54 | XMS_ITS | Encounter Summary ---
Author Organization [facility] Address [address] [place] [address] Phone Care Team Providers Care Waitstaff Name Role Phone Kraig Ching MD Primary Care Provider Gautam Cope MD Unavailable Tramaine Roe MD Unavailable [phone] Sukhwinder Uribe MD Unavailable [phone] Shay Guillermo MD Unavailable [phone] Marsha Landis RN Unavailable Unavailab le Encounter Details Date Type Department Care Team (Late st Contact Info) Description 03/12/2023 Orders Only [facility] Oncology [address] [facility] Advanced Medicine 7th [place] [address] [place] [address] Gautam Cope MD [address] [facility] [address] [place] [address] Social History Tobacco Use Types Packs/Day Years [...] containing alc ohol? 2-3 times a week 02/17/2023 Q2: How many drinks containi ng alcohol do you have on a typical day when you are drinking? 1 or 2 02/17/2023 Q3: How often do you have si x or more drinks on one occasion? 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 Minimize further functional decline 2. Maximize quality of life 3. Control pain Strategies: - Activity/exercise program recommendation - Conservative stepwise pain medicine strategy with multi-disciplinary approach - Recommend healthy lifestyle strategies and compensatory methods as needed documented as of this encounter Visit Diagnoses Not on filedocumented in this encounter Care Teams Waitstaff Relationship Specialty Start Date End Date Kraig Ching MD [address] [place] [address] PCP - General 07/10/16 Gautam Cope MD [address] [place] [address] Medical Oncologist/Petroleum Geology Faculty Member Medical Oncology 08/18/18 Tramaine Roe MD [address] [place] [address] Referring Physician Urology 08/18/18 Sukhwinder Uribe MD [address] [place] [address] Consulting Physician Urology 08/18/18 Shay Guillermo MD [address] [facility] [address] [place] [address] Referring Physician Urology 08/18/18 Marsha Landis, RN Registered Nurse 11/17/18 documented as of this encounter
--- OUTSIDE RECORDS SUMMARY | 2024-03-31 04:54 | XMS_ITS | Encounter Summary ---
Author Organization [facility] Address [address] [place] [address] Phone Care Team Providers Care Fashion Journalist Name Role Phone Kraig Ching MD Primary Care Provider [phone] Gautam Cope MD Unavailable Tramaine Roe MD Unavailable [phone] Sukhwinder Uribe MD Unavailable [phone] Shay Guillermo MD Unavailable [phone] Marsha Landis RN Unavailable Unavailab le Reason for Visit * Consultation (Routine) - Authorized Specialty Diagnoses / Procedures Referred By Saleem narvaez Referred To Contact Oncology Diagnoses Prostate cancer (HCC) Tramaine Roe MD [address] [facility] [address] [place] [address] Phone: tel: fax: Gautam Cope MD [address] [facility] [address] IM MEDICAL ONCOLOGY, [address] [place] [address] Phone: tel: fax: Referral ID Status Reason Start Date Expiration Date Visits Requested Visits Authorized [id number] Authorized Specialty Services Required 08/15/2018 04/11/2024 99 99 Encounter Details Date Type Department Care Team (Late st Contact Info) Description 11/17/2022 10:15 AM CDT Lab [facility] Oncology [address] [facility] Advanced [facility] 7th [place] [address] [place] [address] Prostate cancer (HCC) Social History [...] on file 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 Gender Identity Not on file Sexual [...] Chronic Care Management No change(03/23 1:47 PM STATISTICS MANAGER) No Ingrid Oden, SHEA Note: Problem: Chronic [...] rst Ordered Date ONCBCN LAB APPOINTMENT 1 11/17/2022 documented in this encounter Care Teams Fashion Journalist Relationship Specialty Start Date End Date Kraig Ching MD [address] [place] [address] PCP - General 07/10/16 Gautam Cope MD [address] [place] [address] Medical Oncologist/Banquet Bartender Medical Oncology 08/18/18 Tramaine Roe MD [address] [place] [address] Referring Physician Urology 08/18/18 Sukhwinder Uribe MD [address] [facility] [address] [place] [address] Consulting Physician Urology 08/18/18 Shay Guillermo MD [address] [facility] [address] [place] [address] Referring Physician Urology 08/18/18 Marsha Landis, RN Registered Nurse 11/17/18 documented as of this encounter
--- OUTSIDE RECORDS SUMMARY | 2024-03-31 04:54 | XMS_ITS | Encounter Summary ---
Author Organization [facility] Address [address] [place] [address] Phone Care Team Providers Care Pillow Filler Name Role Phone Kraig Ching MD Primary Care Provider [phone] Gautam Cope MD Unavailable Tramaine Roe MD Unavailable [phone] Sukhwinder Uribe MD Unavailable [phone] Shay Guillermo MD Unavailable [phone] Marsha Landis RN Unavailable Unavailab le Reason for Visit * Reason Comments Injections Eligard * Episode Based Medications (Routine) - Authorized Specialty Diagnoses / Procedures Referred By Contac t Referred To Contact Oncology Diagnoses Prostate cancer (HCC) Procedures [place] LEUPROLIDE ACETATE SUSPNSION Leuprolide Every 3 Months - Prostate Gautam Cope MD [address] [facility] [address] [place] [address] Phone: tel: fax: [facility] - Infusion [address] [facility] [address] [place] [address] Referral ID Status Reason Start Date Expiration Date V isits Requested Visits Authorized [id number] Authorized 09/06/2018 07/11/2024 1 50 Encounter Details Date Type Department Care Team (Late st Contact Info) Description 11/17/2022 11:[address] 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 male who presents for the following injection: Eligard. Nursing Assessment Nursing Assessment Appetite: Good Diarrhea: No Constipation: No Existing Patients: Any falls since your last visit?: No New Patients: Any falls since your last visit?: N/A Fatigue: Constant Mouth Sores: No Nausea/Vomiting: No Neurological symptoms: No Pain: No Peripheral Neuropathy: No Pt states has potential to be ?: N/A Shortness of Breath?: Yes (with exertion) Lungs auscultated PRN: No Pt is on oxygen?: No Skin Condition/Temp: Warm, Dry Swelling: No BP: 130/68 Temp: 36.4 ??C (97.6 ??F) Temp src: Transdermal Pulse: 75 Resp: 18 SpO2: 95 % Weight: 99.7 kg (219 lb 12.8 oz) Patient: does not require labs today. David Wei tolerated injection well Additional Notes: right abdomen Discharge Plan Discharge instructions given to patient. [...] Pain Care Plan Chronic Care Management No change(12/12 /2023 1:47 PM STUFFING MACHINE OPERATOR) Ingrid Mcdaniels, SHEA Note: Problem: Chronic Pain Goals: 1. [...] 22.5 mg 22.5 mg, subcutaneous, Once, On Wed11/17/22 at 1130, For 1 dose, For subcutaneous use only. Allow product to reach room temperature before using.Indications:Prosta te cancer (HCC) Given 11/17/2022 11:05 AM CDT 22.5 mg Right Lower Abdomen documented in this encounter Orders Nursing Count Last Ordered Date First Orde red Date ONCBCN TREATMENT PARAMETERS 2 1 11/17/2022 Appointment Requests Count Last Ordered Date Fi rst Ordered Date ONCBCN INJECTION APPOINTMENT REQUEST 1 11/2022 documented in this encounter Care Teams Pillow Filler Relationship Specialty Start Date End Date Kraig Ching MD [address] [place] [address] PCP - General 07/10/16 Gautam Cope MD [address] [place] [address] Medical Oncologist/Vice President Diversity Medical Oncology 08/18/18 Tramaine Roe MD [address] [place] [address] Referring Physician Urology 08/18/18 Sukhwinder Uribe MD [address] [place] [address] Consulting Physician Urology 08/18/18 Shay Guillermo MD [address] [facility] [address] [place] [address] Referring Physician Urology 08/18/18 Marsha Landis, RN Registered Nurse 11/17/18 documented as of this encounter
--- OUTSIDE RECORDS SUMMARY | 2024-03-31 04:54 | XMS_ITS | Encounter Summary ---
Author Organization [facility] Address [address] [place] [address] Phone Care Team Providers Care Force Adjustment Supervisor Name Role Phone Kraig Ching MD Primary Care Provider [phone] Gautam Cope MD Unavailable Tramaine Roe MD Unavailable [phone] Sukhwinder Uribe MD Unavailable [phone] Shay Guillermo MD Unavailable [phone] Marsha Landis RN Unavailable Unavailab le Encounter Details Date Type Department Care Team (Late st Contact Info) Description 03/08/2023 Telephone [facility] [address] [facility] 2[address] [place] [address] Janice Goldman Social History Tobacco Use Types [...] on file 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 Ching, the pt's cataract surgery was cancelled in the pre-op holding area the day of his surgery. He was sent to the E/R. His PCP states pt has had this issue for 15 years, and there's nothing new with his symptoms. Dr. Ching will send a letter stating the pt is cleared for cataract surgery. Dr Ching's # [phone]. UE MAKER documented in this encounter Plan of Treatment [...] Chronic Care Management No change(03/23 1:47 PM PLAQUE MAKER) No Ingrid Oden, SHEA Note: Problem: Chronic Pain Goals: 1. Minimize further functional decline 2. Maximize quality of life 3. Control pain Strategies: - Activity/exercise program recommendation - Conservative stepwise pain medicine strategy with multi-disciplinary approach - Recommend healthy lifestyle strategies and compensatory methods as needed documented as of this encounter Visit Diagnoses Not on filedocumented in this encounter Care Teams Force Adjustment Supervisor Relationship Specialty Start Date End Date Kraig Ching MD [address] [place] [address] PCP - General 07/10/16 Gautam Cope MD [address] [place] [address] Medical Oncologist/Performing Arts Road Manager Medical Oncology 08/18/18 Tramaine Roe MD [address] [place] [address] Referring Physician Urology 08/18/18 Sukhwinder Uribe MD [address] [facility] [address] [place] [address] Consulting Physician Urology 08/18/18 Shay Guillermo MD [address] [facility] [address] [place] [address] Referring Physician Urology 08/18/18 Marsha Landis, RN Registered Nurse 11/17/18 documented as of this encounter
--- OUTSIDE RECORDS SUMMARY | 2024-03-31 04:54 | XMS_ITS | Encounter Summary ---
Author Organization [facility] Address [address] [facility] [place] [address] Care Team Providers Care Furnace Repairer Helper Name Role Phone Kraig Ching MD Primary Care Provider [phone] Gautam Cope MD Unavailable Tramaine Roe MD Unavailable [phone] Sukhwinder Uribe MD Unavailable [phone] Shay Guillermo MD Unavailable [phone] Marsha Landis RN Unavailable Unavailab le Reason for Visit * Reason Onset Date Comments Sinus Problem 12/31/2022 Encounter Details Date Type Department Care Team (Late st Contact Info) Description 12/31/2022 Nurse Triage 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 Patientstarted to experience flu like symptoms last Wednesday, patient is experiencing sinus congestion and fullness in the upper part of his head. Patient has been experiencing sinus drainage and a consistent cough that has not been productive at all times. Patient reports that his cough started to improve this morning and he is doing much better . Patient has been experiencing fatigue but it is not anew symptom that he is experiencing. Patient's Aracely is concerned that he may develop pneumonia due to underlying health conditions including AFib and COPD. Patient has verbalized that he is always short of breath at some points during each day from his COPD. David Wei denies fevers, chest pain, coughing up blood, drooling, lightheadedness/dizziness, visual changes, fainting episodes, facial swelling, difficulty breathing. This RN has recommended that the patient be seen in person to have a provider listen to his lungs and be able to assess his ears, nose and throat; David Wei agreeable with recommendation to be seen. This RN has scheduled an in office appointment for tomorrow at 10 am to see Mary Ellen Stone DNP. This RN has educated the patient on home care advice and symptoms to watch for becoming worse to call back and report, this RN has informed both the patient and his that should they need to callback there is a nurse available 24 hours a day through the office phone number to assist with questions and symptoms. This RN has educated both the patient and his on how respiratory/cold viruses are spread and has explained to them that it is very hard to pinpoint where you may have come intocontact with this type of virus due to most being in the air right now. Symptomatic therapy suggested: gargle for sore throat, use mist at bedside for congestion. Apply facial warm packs for sinus pain. May use acetaminophen prn. Reviewed home care per guideline. David Wei has verbalized understanding of education and does not have any questions or concerns. Reason for Disposition Patient wants to be seen Protocols used: Sinus Pain or [id number]-RL * Telephone Encounter - Bibi Niño RN - 12/31/2022 10:34 AM CDT Regarding: hard time breathing ----- Message from [employer] sent at 12/31/2022 10:27 AM CDT ----- Symptom Based Call Caller's Callback #: [phone] Chief Complaint(s): hard time breathing Duration: week What type of symptom(s) is the patient experiencing? Red Flag. Is the patient concerned they are experiencing a medical emergency requiring an ambulance? No Additional Comments: patient had a flu shot last Wednesday patient now is experiencing congestions had a rough night with breathing Does message need to be routed? Yes-Action Needed documented in this encounter Plan of Treatment [...] to monitor diabetes and kidney status, etc. 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 Minimize further functional decline 2. Maximize quality of life 3. Control pain Strategies: - Activity/exercise program recommendation - Conservative stepwise pain medicine strategy with multi-disciplinary approach - Recommend healthy lifestyle strategies and compensatory methods as needed documented as of this encounter Visit Diagnoses Not on filedocumented in this encounter Care Teams Furnace Repairer Helper Relationship Specialty [place] [address] [place] [address] [address] [place] [address] PCP - General 07/10/16 [place] [address] [place] [address] [address] [place] [address] Medical Oncologist/Director Ship Medical Oncology 08/18/18 [place] [address] [place] [address] [address] [place] [address] Referring Physician Urology 08/18/18 Sukhwinder Uribe MD [address] [facility] [address] [place] [address] Consulting Physician Urology 08/18/18 Shay Guillermo MD [id number] [place] [address] Referring Physician Urology 08/18/18 Marsha Landis RN Registered Nurse 11/17/18 documented as of this encounter
--- OUTSIDE RECORDS SUMMARY | 2024-03-31 04:54 | XMS_ITS | Encounter Summary ---
Author Organization [facility] Address [address] [place] [address] Care Team Providers Care Sample Stitcher Name Role Phone Kraig Ching MD Primary Care Provider [phone] Gautam Cope MD Unavailable Tramaine Roe MD Unavailable [phone] Sukhwinder Uribe MD Unavailable [phone] Shay Guillermo MD Unavailable [phone] Marsha Landis RN Unavailable Unavailab le Encounter Details Date Type Department Care Team (Latest Contact Info) Description 01/01/2023 10:20 AM CDT - 01/01/2023 11:59 PM CDT Hospital Encounter [facility] [address] [place] [address] Bilateral rales; Symptoms of upper respiratory infection (URI) Discharge Disposition: Discharge to home or self [...] on file 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 Do not eat anything for at least 2 hours before and for at least 1 hour after 120 tablet 4 10/15/2022 3 Accu-Chek Fastclix Lancet Drum misc USE DIRECTED 204 each 1 11/17/2022 4 aspirin 81 mg enteric coated tabletIndications :prevention of thrombosis Take 1 tablet (81 mg total) by mouth every morning 4 blood glucose diagnostic (Accu-Chek Guide test strips) strip USE DIRECTED TO TEST BLOOD SUGAR TWICE DAILY. 200 strip 1 11/09/2022 4 carvediloL (COREG) 12.5 mg tabletIndications :CKD (chronic kidney disease) stage 3, GFR 30-59 ml/min ([facility]) Take 1 tablet (12.5 mg total) by mouth 2 (two) times a day with meals 180 tablet 10/19/2022 3 chlorthalidone 25 mg tablet Take 1 tablet (25 mg total) by mouth daily 90 tablet 3 10/02/2022 4 dorzolamide-timol oL (COSOPT) 22.3-6.8 mg/mL ophthalmic solution Administer 1 drop into both eyes 2 (two) times a day 10 mL 11 12/08/2022 4 insulin aspart (NovoLOG) 100 unit/mL (3 mL) pen for injection ADMINISTER 8 UNITS UNDER THE SKIN THREE TIMES DAILY BEFORE MEALS 3 mL 11 04/10/2022 4 Januvia 25 mg tabletIndications :Type 2 diabetes mellitus with stage 3 chronic kidney disease, without long-term current use of insulin ([facility]) TAKE 1 TABLET BY MOUTH DAILY 30 tablet 11 12/08/2022 4 ketorolac (ACULAR) 0.5 % ophthalmic solution Instill one drop into surgical eye three time daily starting two days pre op 5 mL 1 12/08/2022 4 LANTUS 100 unit/mL (3 mL) pen for injection ADMINISTER 28 UNITS UNDER THE SKIN DAILY 6 mL 2 12/01/2022 3 latanoprost (XALATAN) 0.005 % ophthalmic solution Administer 1 drop into both eyes nightly 3 lisinopriL (PRINIVIL,ZESTRIL ) 20 mg tablet Take 1.5 tablets (30 mg total) by mouth daily 135 tablet 3 07/22/2022 4 moxifloxacin (VIGAMOX) 0.5 % ophthalmic solution Instill 1 drop into surgical eye three times daily starting two days before surgery 3 mL 1 12/08/2022 4 oxyCODONE (ROXICODONE) 5 mg immediate release tabletIndications :Pain Take 1 tablet (5 mg total) by mouth every 6 (six) hours as needed for pain 60 tablet 09/10/[address] (PROTONIX) 40 mg EC tablet [...] Chronic Care Management No change(03/23 1:47 PM 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 Minimize further functional decline 2. Maximize quality of life 3. Control pain Strategies: - Activity/exercise program recommendation - Conservative stepwise pain medicine strategy with multi-disciplinary approach - Recommend healthy lifestyle strategies and compensatory methods as needed documented as of this encounter Procedures Procedure Name Priority Date/Time Associated Diagnosis Comments XR CHEST PA LATERAL 2 VIEWS Schedule Routine, Read Routine (OP Routine) 01/01/2023 10:25 AM CDT Bilateral rales Symptoms of upper respiratory infection (URI) documented in this encounter Results * XR Chest Pa [...] it. Electronically signed by: Mina Jolly M.D. [place] COM WRITER IMG XR PROCEDURES Final Resul t documented in this encounter Visit Diagnoses Diagnosis Bilateral rales Symptoms of upper respiratory infection (URI) documented in this encounter Care Teams Sample Stitcher Relationship Specialty Start Date End Date Kraig Ching MD [address] [place] [address] PCP - General 07/10/16 Gautam Cope MD [address] [place] [address] Medical Oncologist/Bounty Trapper Medical Oncology 08/18/18 Tramaine Roe MD [address] [place] [address] Referring Physician Urology 08/18/18 Sukhwinder Uribe MD [address] [place] [address] Consulting Physician Urology 08/18/18 Shay Guillermo MD [address] [place] [address] Referring Physician Urology 08/18/18 Marsha Landis, RN Registered Nurse 11/17/18 documented as of this encounter
--- OUTSIDE RECORDS SUMMARY | 2024-03-31 04:54 | XMS_ITS | Encounter Summary ---
Author Organization [facility] Healthcare Address [address] [place] [address] Care Team Providers Care Parts Identification Technician Name Role Phone Kraig Ching MD Primary Care Provider [phone] Gautam Cope MD Unavailable Tramaine Roe MD Unavailable [phone] Sukhwinder Uribe MD Unavailable [phone] Shay Guillermo MD Unavailable [phone] Marsha Landis RN Unavailable Unavailab le Reason for Referral * Diagnostic Imaging (Routine) - Closed Specialty Diagnoses / Procedures Referred By Contac t Referred To Contact Diagnoses Spinal stenosis of lumbar region with neurogenic claudication Lumbar radiculopathy Procedures Imaging Lumbar/Caudal Epidural Steroid INJ ([id number]) Maru Arreola MD PhD [address] 20[address]02[address]956 [place] [address] Phone: tel: fax: [address] [phone] Referral ID Status Reason Start Date Expiration Date Visits Re quested Visits Authorized [id number] Closed 03/23/2023 09/19/2023 1 1 ORAL COUNSELOR * Diagnostic Imaging (Routine) - Closed Specialty Diagnoses / Procedures Referred By Contac t Referred To Contact Diagnoses Spinal stenosis of lumbar region with neurogenic claudication Lumbar radiculopathy Procedures Imaging Lumbar/Caudal Epidural Steroid INJ ([id number]) Maru Arreola MD PhD [address] [facility] [facility] [id number] [place] [address] Phone: tel: fax: [address] [phone] Referral ID Status Reason Start Date Expiration Date Visits Re quested Visits Authorized [id number] Closed 03/23/2023 09/19/2023 1 1 ORAL COUNSELOR Reason for Visit * Reason Comments Follow-up * Diagnostic Imaging (Routine) - Closed Specialty Diagnoses / Procedures Referred By Contac t Referred To Contact Diagnoses Spinal stenosis of lumbar region with neurogenic claudication Lumbar radiculopathy Procedures Imaging Lumbar/Caudal Epidural Steroid INJ ([id number]) Maru Arreola MD PhD [address] [facility] [address] [facility] [id number] [place] [address] Phone: tel: fax: [address] [phone] Referral ID Status Reason Start Date Expiration Date Visits Re quested Visits Authorized [id number] Closed 03/23/2023 09/19/2023 1 1 Encounter Details Date Type Department Care Team (Latest Contact Info) Description 03/23/2023 10:28 AM PASTORAL COUNSELOR - 03/23/2023 11:59 PM PASTORAL COUNSELOR Hospital Encounter [facility] [address] [place] [address] for Advanced Medicine [address] [place] [address] Maru Arreola MD PhD [address] [facility] [facility] [phone] [place] [address] Spinal stenosis of lumbar region with neurogenic claudication (Primary Dx); Lumbar radiculopathy; Neuropathic pain Discharge Disposition: Discharge to home or self care Social History Tobacco Use Types Packs/Day Years Used Date Smoking Tobacco: Former Cigarettes 0.3 52 1 958 - 2010 Smokeless Tobacco: Never Tobacco Cessation:Counseling Given: No Comments:Smoking History Packs/day: 10 Cigarettes Alcohol Use [...] on file 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 PASTORAL COUNSELOR Gender Identity Not on file Sexual Orientation Not on file documented as of this encounter Last Filed Vital Signs Vital Sign Reading Time Taken Comments Blood Pressure 146/61 03/23/2023 3:49 PM PASTORAL COUNSELOR Pulse 67 03/23/2023 3:49 PM PASTORAL COUNSELOR Temperature 35.7 ??C (96.3 ??F) 03/23/2023 1:42 PM CS T Respiratory Rate 14 03/23/2023 3:49 PM PASTORAL COUNSELOR Oxygen Saturation 97% 03/23/2023 3:49 PM PASTORAL COUNSELOR Inhaled Oxygen Concentration - - Weight 96.6 kg (213 lb) 03/23/2023 1:42 PM PASTORAL COUNSELOR Height 180.3 cm (5' 11 ) 03/23/2023 1:42 PM PASTORAL COUNSELOR Body Mass Index 29.71 03/23/2023 1:42 PM PASTORAL COUNSELOR documented in this encounter Discharge Instructions * Discharge Instructions* Kiran Wilson RN - 03/23/2023 3:12 PM PASTORAL COUNSELOR [facility] PATIENT EDUCATION POST-PROCEDURE INFORMATION SHEET After this procedure you may have: Dizziness Numbness in extremities Weakness in extremities These symptoms generally wear off in 6-8 hours, but are almost always gone by the next morning. A small amount of bruising, bleeding, swelling at the injection site(s). It is recommended you apply ice packs for 20 minutes every 1-2 hours for the first 24 hours. After 24 hours, if you still have discomfort, you may use a heating pad. Do not sit or lie on top of heating pad. Do not leave ice or heat on for more than 20 minutes at a time. Stand up slowly from a sitting or lying position today to prevent feeling dizzy or lightheaded. Limit activity today, which includes no driving. You may resume your normal activity and driving the next day after your procedure. You may take a shower. No tub bath, swimming pool, hot tub, etc., for 24 hours. You have received two (2) medications in your injection today. The first is a numbing medicine. This medicine may give you quick pain relief that may wear off before tomorrow. The second medicine is a steroid which may take 2-7 days to start working. You may also have some extra soreness at the injection site. After the numbing medicine wears off, your pain may return until the steroid starts working. If you have any questions or problems, please call the Pain Management Center at . For emergencies after 4:00 p.m., you should call the hospital joint machine operator at and ask tospeak with the Pain Service doctor dixonac operator. [facility] ([facility]) DISCHARGE INSTRUCTIONS MEDICATIONS: [x] Continue your current home medications Start: Gabapentin 100 mg at bedtime then titrate to 300 at bedtime if tolerated Week 1: 100 mg at bedtime Week 2: 200 mg at bedtime Week 3: 300 mg at bedtime [x] Notify your pharmacy for refill(s) 7 days before you are out of your medication. [] Opioid (Narcotic) Agreement signed and patient received copy. [] Side Effects of Opioid Medications given to patient Resume blood thinner: On Discontinue: PROCEDURE at today's visit: Caudal epidural steroid injection DIET: [x] Resume normal diet [] See [facility] Post Discharge Procedure Information Sheet ACTIVITY: [] Resume normal activity [x] See [facility] Post Discharge Procedure Information Sheet REFERRALS: Physical Therapy [] [facility] ([phone]) [] [facility] (Graded [employer] Imagery) [] [facility] ([phone]) Option 1 [] [facility] (Graded Motor Imagery) [] [facility] ([phone]) [x] Other: Referral to PT- [facility] [] Pain Psychologist, [facility] Please call to schedule appointment [phone] or [phone] Diagnostic Test(s): May get Radiographs performed in Radiation/X-Ray 6th floor, [address]. [] Please call to schedule MRI or CT scan at [phone] [] Please call to schedule [facility] at [phone] EDUCATION provided on the following: [] Spinal Cord Stimulator Education and DVD. Vendor: FOLLOW UP APPOINTMENTS: [] Return as needed [x] Follow up appointment: 3 months We will contact you the next business day to obtain: [] An update on your condition [] Your Pain diary scores [] Procedure at your next visit : INSTRUCTIONS before your next procedure: [] See [facility] Pre-Procedure Information Sheet [] Do not eat or drink for six (6) hours before the time/date of the procedure. [] Inquire with your prescribing provider if ok to hold blood thinner for ( ) days before procedure. [] Blood work required 2 hours before procedure: [] Soil Engineer needed for next procedure [] Pre Procedure instructions will be sent through [employer] or by phone two working days prior to procedure. *Need help with [employer]? Call [phone]. Patient provided information and repeated back with understanding. If you need to reach us: For any questions about your procedure, please call the Pain Management Center [phone] (M-F) (8am-4pm) If you need urgent attention after 5 pm and weekends: Call the [facility] Cooper Helper at [phone] and ask for the Pain Service doctor dixonac operator. ORAL COUNSELOR ORAL COUNSELOR ORAL COUNSELOR ORAL COUNSELOR ORAL COUNSELOR ORAL COUNSELOR * Patient Instructions* Kiran Wilson RN - 03/23/2023 2:15 PM PASTORAL COUNSELOR ORAL COUNSELOR ORAL COUNSELOR ORAL COUNSELOR documented in this encounter Medications at Time [...] 1 11/09/2022 4 carvediloL (COREG) 12.5 mg tabletIndication s:CKD (chronic kidney disease) stage 3, GFR 30-59 ml/min ([facility]) TAKE 1 TABLET(12.5 MG) BY MOUTH TWICE DAILY WITH MEALS 180 tablet 01/11/2023 4 chlorthalidone 25 mg tablet Take 1 tablet (25 mg total) by mouth daily 90 tablet 3 10/02/2022 4 dorzolamide-gilbert loL (COSOPT) 22.3-6.8 mg/mL ophthalmic solution Administer 1 drop into both eyes 2 (two) times a day 10 mL 11 12/08/2022 4 gabapentin (NEURONTIN) 100 mg capsuleIndicatio ns:Neuropathic Pain Take 1 capsule (100 mg total) by mouth 3 (three) times a day 270 capsule 3 03/23/2023 4 insulin aspart (NovoLOG) 100 unit/mL (3 [...] disease, without long-term current use of insulin ([facility]) TAKE 1 TABLET BY MOUTH [...] hours as needed for pain 60 tablet 01/12/[address] (PROTONIX) 40 mg EC [...] 10/15/2022 4 documented as of this encounter Ordered Prescriptions Prescription Sig Dispense Quantity Refills Last Filled Start Date End Date gabapentin (NEURONTIN) 100 mg capsuleIndications :Neuropathic Pain Take 1 capsule (100 mg total) by mouth 3 (three) times a day 270 capsule 3 03/23/2023 4 documented in this encounter Discharge Disposition Disposition Code Departure Means Destination Discharge to home or self care documented in this encounter Progress Notes * Maru Arreola MD PhD - 03/23/2023 2:15 PM CST Patient Name: David Wei : 1940 Today's Date: 03/23/2023 PCP: Kraig Ching MD Referring: Unknown Referring, Chief Complaint Patient presents with Follow-up HPI HISTORICAL INFO: Mr. David Wei is a 77 y.o. male was referred by Kraig Ching MD for consultation regarding treatment recommendations for management of low back pain. Location of pain: low back Radiation of pain: numbness and weakness with walking. The pain is not as bothersome as the numbness and weakness. If he walks leaning forward, his legs will not go numb or weak as quickly. He is most concerned about the weakness. Mr. David Wei is a 77 y.o. 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 He states the pain started in his 30's, but the numbness and weakness started a few years ago (slight at first, worse over the past year). He reports no new numbness, weakness, bowel/bladder incontinence but does have issues with urination since prostate resection. Therapeutic modalities to date none. Previous injections: none The patient has done physical therapy for his knee. The patient does do home exercise programs. The pain is constant and described as aching. He rates his pain at 5/10 on average. The pain increases with walking, lifting, standing, strain and decreases with rest, lying, sitting. His ADLs are difficult, but manageable on his own. The patient has stopped smoking (many years ago). Current and Prior Pain Medications: none Opioid: AEDs: Anti-Depressants: Muscle Relaxants: Anti-Inflammatories: none due to renal insufficiency Topical: Sleep Aids: Other: Imagin08/10/18 Bone scan: Focal increased uptake projecting the right posterior aspect of L2 vertebral body, Given increasing of PSA, this is suspicious for metastatic disease. 08/10/18: L-SPINE MRI: There is grade 1 anterolisthesis of L4 on L5. There are hemangiomas involving L3 and L4. There is moderate type I changes at L3-L4 and L4-L5. Mixed Modic changes (2 and 3) at L2-L3. Modic 3 changes at the level of L2 correspond to the sclerotic metabolically active lesion seen on the bone scan, thus represents a metastatic lesion, and not degenerative changes. Partial fusion of the disc space at L5-S1. 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 Vertebral bodies demonstrate normal signal intensity on all sequences. There are no compression fractures. The conus medullaris terminates at the level of the T12-L1. The distal spinal cord signal intensity is normal. Disc heights are reduced especially at L5-S1. There is diffuse disc bulging from L1-L2 and L4-L5. There are no annular fissures identified. There is a large left posterior renal cyst. The aorta is normal. L1-L2: There is marked disc bulge. There is moderate bilateral facet arthropathy. There is mild right neuroforaminal stenosis. There is severe spinal canal stenosis. L2-L3: Moderate disc bulge. There is severe bilateral facet arthropathy. There is mild bilateral neuroforaminal stenosis. There is severe spinal canal stenosis. Ligamentum flavum infolding. Modic 3 changes at the level of L2 correspond to the sclerotic metabolically active lesion seen on the bone scan, thus represents a metastatic lesion, and not degenerative changes L3-L4: Moderate disc bulge. There is moderate bilateral facet arthropathy. There is moderate bilateral neuroforaminal stenosis. There is severe spinal canal stenosis. Ligamentum flavum infolding. L4-L5: Marked disc bulge with a superimposed disc protrusion. There is severe bilateral facet arthropathy. There is moderate bilateral neuroforaminal stenosis. There is severe spinal canal stenosis L5-S1: Disc osteophyte complex with large anterior osteophytes. There is mild bilateral facet arthropathy. There is moderate neuroforaminal stenosis. There is no spinal canal stenosis 02/18/23: L-spine Xrays: Mild levoconvex curvature of the thoracolumbar spine. Multilevel degenerative disc disease in the lumbar spine, greatest in severity L1-L2. Vertebral body heights are normal. There is mild retrolisthesis of L3 on L4 with grade 1 anterolisthesis L4 on L5. Multilevel degenerative facet arthropathy. Atherosclerotic thoracic calcifications. Surgical clips overlie the pelvis. Pain Procedures: 09/15/18: LSNR at bilateral L4/5 (good relief) 01/17/19: LSNR bilateral L4/5 - excellent benefit for several months 10/10/20: LSNR bilateral L4/5- >50% benefit for >3 months INTERVAL HISTORY (03/23/2023): Mr. David Wei returns to care for persistent low back pain with radiation down the left leg. His ability to stand is limited by weakness in the legs when he stands - the amount of time varies for how long he can stand. He has to lean on the countertop or a walker to ease the pain. When he sits or lays down the pain goes away. He stopped gabapentin because it didn't do much and made him drowsy. The chemo he is on gives him hot flashes and he does not sleep well at night- he has to nap during the day. Last visit was 2020. He reports no new numbness, weakness, bowel/bladder incontinence. Since the last visit, the pain is worse. He is s/p LSNR, which provided >80% for 5 months long . He denies any side effects to current pain medications. The pain is constant and described as aching, tiring, and shooting. He rates his pain at 1-2/10 on average. The pain increases with walking, standing and decreases with sitting. They have done physical therapy on the following dates: [facility] will [facility] PT at [facility] They have spusal support at home.. Modified Oswestry Modified Oswestry Low Back Pain Score: 33 Percentage: 66 Current Pain meds: Pain Medications oxyCODONE (ROXICODONE) 5 mg immediate release tablet Take 1 tablet (5 mg total) by mouth every 6 (six) hours as needed for pain predniSONE (DELTASONE) 5 mg tablet Take 1 tablet (5 mg) by mouth two times a day gabapentin (NEURONTIN) 100 mg capsule Take 1 capsule (100 mg total) by mouth 3 (three) times a day Review of Systems Review of Systems Musculoskeletal: Positive for back pain. Patient's Medications New Prescriptions GABAPENTIN (NEURONTIN) 100 MG CAPSULE Take 1 capsule (100 mg total) by mouth 3 (three) times a day Authorizing Provider: Maru Arreola MD PhD Notes: -- Previous Medications ABIRATERONE (ZYTIGA) 250 MG TABLET Take 4 tablets (1,000 mg) by mouth daily. Do not eat anything for at least 2 hours before and for at least 1 hour after Authorizing Provider: Gautam Cope MD Notes: -- ACCU-CHEK FASTCLIX LANCET DRUM MISC USE DIRECTED Authorizing Provider: Kraig Ching MD Notes: -- ALBUTEROL HFA (PROVENTIL HFA,VENTOLIN HFA,PROAIR HFA) 90 MCG/ACTUATION INHALER Inhale 2 puffs every8 (eight) hours as needed for wheezing or shortness of breath Authorizing Provider: Coleen Salas MD Notes: -- ASPIRIN 81 MG ENTERIC COATED TABLET Take 1 tablet (81 mg total) by mouth every morning Authorizing Provider: Coleen Slaas MD Notes: -- BLOOD GLUCOSE DIAGNOSTIC (ACCU-CHEK GUIDE TEST STRIPS) STRIP USE DIRECTED TO TEST BLOOD SUGAR TWICE DAILY. Authorizing Provider: Kraig Ching MD Notes: -- CARVEDILOL (COREG) 12.5 MG TABLET TAKE 1 TABLET(12.5 MG) BY MOUTH TWICE DAILY WITH MEALS Authorizing Provider: Lin Guerrero MD Notes: -- CHLORTHALIDONE 25 MG TABLET Take 1 tablet (25 mg total) by mouth daily Authorizing Provider: Lin Guerrero MD Notes: -- DORZOLAMIDE-TIMOLOL (COSOPT) 22.3-6.8 MG/ML OPHTHALMIC SOLUTION Administer 1 drop into both eyes 2 (two) times a day Authorizing Provider: Higinio Connolly MD Notes: -- INSULIN ASPART (NOVOLOG) 100 UNIT/ML (3 ML) PEN FOR INJECTION ADMINISTER 8 UNITS UNDER THE SKIN THREE TIMES DAILY BEFORE MEALS Authorizing Provider: Kraig Ching MD Notes: -- INSULIN GLARGINE (LANTUS) 100 UNIT/ML (3 ML) PEN FOR INJECTION ADMINISTER 28 UNITS UNDER THE SKIN DAILY Authorizing Provider: Kraig Ching MD Notes: -- JANUVIA 25 MG TABLET TAKE 1 TABLET BY MOUTH DAILY Authorizing Provider: Kraig Ching MD Notes: -- KETOROLAC (ACULAR) 0.5 % OPHTHALMIC SOLUTION Instill one drop into surgical eye three time daily starting two days pre op Authorizing Provider: Higinio Connolly MD Notes: -- LISINOPRIL (PRINIVIL,ZESTRIL) 20 MG TABLET Take 1.5 tablets (30 mg total) by mouth daily Authorizing Provider: Lin Guerrero MD Notes: -- MOXIFLOXACIN (VIGAMOX) 0.5 % OPHTHALMIC SOLUTION Instill 1 drop into surgical eye three times dailystarting two days before surgery Authorizing Provider: Higinio Connolly MD Notes: -- OXYCODONE (ROXICODONE) 5 MG IMMEDIATE RELEASE TABLET Take 1 tablet (5 mg total) by mouth every 6 (six) hours as needed for pain Authorizing Provider: Kraig Ching MD Notes: Dx; prostate cancer C[address] (PROTONIX) 40 MG EC TABLET TAKE 1 TABLET(40 MG) BY MOUTH DAILY Authorizing Provider: Kraig Ching MD Notes: -- PEN NEEDLE, DIABETIC (BD ULTRA-FINE SHORT PEN NEEDLE) 31 GAUGE X 5/16 NEEDLE USE TO INJECT INSULIN4 TIMES EVERY DAY DIRECTED Authorizing Provider: Kraig Ching MD Notes: -- PRAVASTATIN (PRAVACHOL) 20 MG TABLET TAKE 1 TABLET BY MOUTH EVERY DAY Authorizing Provider: Kraig Ching MD Notes: -- PREDNISOLONE ACETATE (PRED FORTE) 1 % OPHTHALMIC SUSPENSION Instill 1 drop into surgical eye three times daily starting after surgery Authorizing Provider: Higinio Connolly MD Notes: -- PREDNISONE (DELTASONE) 5 MG TABLET Take 1 tablet (5 mg) by mouth two times a day Authorizing Provider: Gautam Cope MD Notes: -- PREVIDENT 5000 PLUS 1.1 % CREAM Apply topically nightly Authorizing Provider: Coleen Salas MD Notes: -- Modified Medications No medications on file Discontinued Medications No medications on file Allergies Allergen Reactions Atorvastatin Muscle pain Lab Results Component Value Date WBC 12.7 (H) 02/09/2023 HGB 12.5 (L) 02/09/2023 HCT 38.5 (L) 02/09/2023 MCV 90.1 02/09/2023 LABPLAT 391 02/09/2023 Physical Exam: Vitals: 03/23/23 1342 03/23/23 1523 03/23/23 1533 03/23/23 1549 BP: (!) 172/74 (!) 187/59 (!) 174/56 146/61 BP Location: Right arm Right arm Patient Position: Lying Lying Pulse: 66 80 73 67 Resp: 14 24 15 14 Temp: (!) 96.3 ??F (35.7 ??C) SpO2: 97% 96% 94% 97% Weight: 96.6 kg (213 lb) Height: 180.3 cm (5' 11 ) Body mass index is 29.71 kg/m??. GENERAL: In no acute distress. Well-developed and well nourished. PSYCHOLOGICAL: Alert and oriented. Cooperative, normal stated mood, congruent affect. HENT: Normocephalic, atraumatic. Hearing adequate for conversation. EYES: Non-icteric sclera. ABDOMEN: Non-distended RESPIRATORY: Non-labored breathing. No audible cough or wheeze. CARDIOVASCULAR: No edema. Bilateral lower extremities are warm and well perfused. SKIN: No rashes or open wounds involving posterior torso, posterior pelvis, lower extremities. NEUROLOGIC: Cranial Nerves: II-XII grossly intact Spine Lumbar/Pelvis Palpation: Tenderness along lumbar spine ROM: decreased Special Tests: SLR positive bilaterally Facet tenderness: severe bilaterally Lumbar facet loading: positive bilaterally Strength Upper Extremity Right Left Elbow Flexion (C5, Musculocutaneous N.) 08/14/5 Elbow Extension (C7, Radial N.) 08/145 Wrist Extension (C6, Radial N./PIN) 08/14 08/14 Finger DIP Digit 2, 3 flexion (anterior interosseus nerve C8, Median N.) 08/14 08/14 Finger DIP Digit 4,5 flexion (C8, Ulnar N.) 08/14 08/14 5th digit abduction, (T1, Ulnar N.) 08/14 08/14 Lower Extremity Right Left Hip Flexion (L2, Femoral N.) 08/14 08/14 Knee Extension (L3, Femoral N.) 08/14 08/14 Ankle Dorsiflexion (L4, Deep Peroneal N.) 08/14 08/14 Great Toe Extension (L5, Deep Peroneal N.) 08/14 08/14 Ankle Plantarflexion (S1, Tibial N.) 08/14 08/14 Psychiatric: normal affect The visit is deemed to have MODERATE LEVEL of medical decision making. MDM type Number and complexity of problems addressed Amount/complexity of Data to be reviewed and analyzed Risk of complications/ morbidity of patient management Moderate Moderate [x] 1 or more chronic illness with exacerbation, progression or side effects of treatment; [] 2 or more stable chronic illnesses; [] 1 undiagnosed new problem with uncertain diagnosis; [] 1 acute illness with systemic symptoms; [] 1 acute complicated injury Must meet 1 of 3 categories: Category 1: [] Reviewed notes from their referring physician [] Reviewed notes from their primary care doctor [] Reviewed notes from external sources [] Ordered unique test [] Assesement requiring independent historian Category 2: [] Independent interpretation of a test performed by another healthcare professional Category 3: [] Discussion of management or test interpretation with external healthcare professional [x] Prescription drug management [] Decisions on elective procedures/ minor surgery with identified patient or procedure risk factors [] Diagnosis or treatments significantly limited by social determinants of health Assessment: The above note documents my personal evaluation of this patient. In addition, I have reviewed and confirmed with the patient and nurse the supportive information documented in today's scanned PatientHealth Questionnaire and Office Note. 82 y.o. y/o with signs and symptoms of low back pain and bilateral LE pain due to spinal stenosiswho has failed conservative treatments (including: physical therapy (more than 4 weeks), HEP, medications). Encounter Diagnoses Name Primary? Spinal stenosis of lumbar region with neurogenic claudication Yes Lumbar radiculopathy Neuropathic pain Multidisciplinary Pain Management Plan: 1. Interventions: Given signs and symptoms of lumbar radiculopathy, we will proceed with caudal epidural injection at today's visit. R/B/A discussed, including but not limited to bleeding, infection,increased pain, and possible nerve injury/ injury to surrounding structures. Alternatives (risks) include: medication managment (side effects, dependency), no intervention (increased pain). Patient understand risks/benefits/alternatives and agrees to proceed with injection 2. Medications: Opioids: I have not recommended opioid analgesics Adjuvants: Given the neuropathic component of the pain, we will start the patient on a titration ofgabapentin to a goal of 300mg QPM 3. Imaging: No further imaging needed at this current time. 4. Referral: We will refer the patient to physical therapy for evaluation and treatment as well as a home exercise program. 5. Follow-up: In 3 months for re-evaluation of the above regimen. We would NOT perform more than one injection at a single visit Maru Arreola MD PhD [employer], [facility] 03/23/2023 5:17 PM ORAL COUNSELOR documented in this encounter Miscellaneous Notes * Op Note - Maru Arreola MD PhD - 03/23/2023 2:15 PM CST Attending Surgeon: Maru Arreola M.D., Ph.D. Surgical Assistants: None Procedure: Caudal Epidural Steroid Injection at L5-S1, under Fluoroscopy, with Passage of Radiopaque Epidural Catheter. Pre-procedural Diagnosis: lumbar radiculopathy and lumbar spinal stenosis Post-procedural Diagnosis: Same Indication for Procedure: Low back pain with Bilateral lower extremity radicular pain. Operative Findings: None Estimated Blood Loss: None Intraoperative Fluids: None Specimens: None Complications: None Informed Consent: After reviewing the procedure with the patient, informed consent to proceed with the injection was obtained. A procedural permit was also signed. Description of Procedure: In the prone position, fluoroscopy was used to identify the approximate area of the sacral hiatus. This was also determined by physical examination and palpation of the sacral cornu, bilaterally. The area surrounding the sacral hiatus was prepped with chlorhexidine solution and draped with a sterile drape. Sterile technique was used throughout. The skin and subcutaneous tissues overlying the sacral hiatus were infiltrated with 1% lidocaine. [id number] Tuohy needle was advanced through the sacral hiatus into the caudal spinal canal. Placement of the epidural needle in the spinal canal was confirmed with AP and lateral fluoroscopic images. A radiopaque epidural catheter (TheraCath, Arrow) was advanced through the epidural needle with intermittent fluoroscopic imaging and was brought to the L5-S1 level to the Right of midline. Omnipaque 300 X 0.5 ml. was injected, resulting in distribution of contrast in the epidural space from L5 to S1. Methylprednisolone 80 mg with lidocaine 20 mg (total volume 2 mL) were injected through the epidural catheter, resulting in dispersion of the previously injected contrast. The procedure was well tolerated, and there were no apparent complications. DISPOSITION: Patient discharged home in stable condition. I performed the procedure myself Maru Arreola MD PhD 03/23/2023 3:09 PM ORAL COUNSELOR documented in this encounter Plan of Treatment [...] to monitor diabetes and kidney status, etc. [facility] Chronic Pain Care Plan Chronic Care Management No change(03/23 1:47 PM PASTORAL COUNSELOR) No Ingrid Oden, SHEA Note: Problem: Chronic Pain Goals: 1. Minimize further functional decline 2. Maximize quality of life 3. Control pain Strategies: - Activity/exercise program recommendation - Conservative stepwise pain medicine strategy with multi-disciplinary approach - Recommend healthy lifestyle strategies and compensatory methods as needed documented as of this encounter Procedures Procedure Name Priority Date/Time Associated Diagnosis Comments PAIN MGMT IMAGING LUMBAR/CAUDAL EPIDURAL STEROID INJ Schedule Routine, Read Routine (OP Routine) 03/23/2023 3:41 PM PASTORAL COUNSELOR Spinal stenosis of lumbar region with neurogenic claudication Lumbar radiculopathy documented in this encounter Results * Imaging Lumbar/Caudal Epidural Steroid INJ (82354) (03/23/2023 3:41 PM PASTORAL COUNSELOR) Narrative [facility] - 03/23/2023 3:41 PM PASTORAL COUNSELOR The images from this study are not interpreted by Radiology. ??Please refer to the physician's procedure / OR operative note. us Maru Arreola MD PhD IMG PAIN MGMT PROCEDURES Final Result [facility] documented in this encounter Visit Diagnoses Diagnosis Spinal stenosis of lumbar region with neurogenic claudication- Primary Lumbar radiculopathy Thoracic or lumbosacral neuritis or radiculitis, unspecified Neuropathic pain documented in this encounter Administered Medications Inactive Administered Medications - up to 3 most recent administrations Medication Order MAR Action Action Date Dose Rate Site iohexoL (OMNIPAQUE) 300 mg iodine/mL injection solution As needed, Starting on 03/23/23 at 1531, Intra-Op Given 03/23/2023 3:31 PM PASTORAL COUNSELOR 0.5 mL lidocaine PF (XYLOCAINE) 10 mg/mL (1 %) preservative free injection As needed, Starting on Wed03/23/23 at 1531, Intra-Op Given 03/23/2023 3:31 PM PASTORAL COUNSELOR 15 mL methylPREDNISolone acetate (DEPO-medrol) injection As needed, Starting on Wed03/23/23 at 1531, Intra-Op Given 03/23/2023 3:31 PM PASTORAL COUNSELOR 80 mg documented in this encounter Care Teams Parts Identification Technician Relationship Specialty Start Date End Date Kraig Ching MD [address] [facility] [address] [place] [address] PCP - General 07/10/16 Gautam Cope MD [address] [facility] [address] [place] [address] Medical Oncologist/Community Associate Medical Oncology 08/18/18 Tramaine Roe MD [address] [facility] [address] [place] [address] Referring Physician Urology 08/18/18 Sukhwinder Uribe MD [address] [facility] [address] [place] [address] Consulting Physician Urology 08/18/18 Shay Guillermo MD [address] [facility] [address] [place] [address] Referring Physician Urology 08/18/18 Marsha Landis, RN Registered Nurse 11/17/18 documented as of this encounter
--- OUTSIDE RECORDS SUMMARY | 2024-03-31 04:54 | XMS_ITS | Encounter Summary ---
Author Organization [facility] Address [address] [place] [address] Phone Care Team Providers Care Top Former Name Role Phone Kraig Ching MD Primary Care Provider [phone] Gautam Cope MD Unavailable Tramaine Roe MD Unavailable [phone] Sukhwinder Uribe MD Unavailable [phone] Shay Guillermo MD Unavailable [phone] Marsha Landis RN Unavailable Unavailab le Reason for Referral * Cardiology (Routine) - Closed Specialty Diagnoses / Procedures Referred By Saleem narvaez Referred To Contact Diagnoses Systolic murmur Procedures Transthoracic Echo (TTE) Complete W Doppler/CF Rodolfo Peters MD [address] [place] [address] Phone: tel: fax: [facility] [address] [place] [address] Referral ID Status Reason Start Date Expiration Date Visits Re quested Visits Authorized [id number] Closed 03/18/2023 04/16/2024 1 1 D SUPERVISOR * Cardiology (Routine) - Closed Specialty Diagnoses / Procedures Referred By Saleem narvaez Referred To Contact Diagnoses Abnormal EKG Ventricular trigeminy Procedures MCT Mobile Cardiac Telemetry Event Monitor Rodolfo Peters MD [address] [place] [address] Phone: tel: fax: [facility] [address] [facility] [place] [address] Referral ID Status Reason Start Date Expiration Date Visits Re quested Visits Authorized [id number] Closed 03/18/2023 04/16/2024 1 1 D SUPERVISOR Reason for Visit * Consultation (Routine) - Closed Specialty Diagnoses / Procedures Referred By Contac t Referred To Contact Cardiology Diagnoses Abnormal EKG Systolic murmur Mary Ellen Stone NP [address] [facility] [place] [address] Phone: tel: fax: [facility] (All Locations) Referral ID Status Reason Start Date Expiration Date V isits Requested Visits Authorized [id number] Closed Specialty Services Required 02/18/2023 03/19/2024 12 12 Encounter Details Date Type Department Care Team (Late st Contact Info) Description 03/18/2023 2:00 PM FIELD SUPERVISOR Office Visit [facility] Cardiology [address] [facility] Advanced Medicine 8th [place] [address] [place] [address] Rodolfo Peters MD [address] [place] [address] Abnormal EKG; Systolic murmur; Ventricular trigeminy Social History Tobacco Use Types Packs/Day Years [...] on file 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 FIELD SUPERVISOR Gender Identity Not on file Sexual Orientation Not on file documented as of this encounter Last Filed Vital Signs Vital Sign Reading Time Taken Comments Blood Pressure 192/97 03/18/2023 3:06 PM FIELD SUPERVISOR Pulse 57 03/18/2023 3:06 PM FIELD SUPERVISOR Temperature - - Respiratory Rate - - Oxygen Saturation 98% 03/18/2023 3:06 PM FIELD SUPERVISOR Inhaled Oxygen Concentration - - Weight 97.1 kg (214 lb) 03/18/2023 3:06 PM FIELD SUPERVISOR Height 180.3 cm (5' 11 ) 03/18/2023 3:06 PM FIELD SUPERVISOR Body Mass Index 29.85 03/18/2023 3:06 PM FIELD SUPERVISOR documented in this encounter Progress Notes * Rodolfo Peters MD - 03/18/2023 2:00 PM CST Images from the original note were not included. [facility] DEPARTMENT OF MEDICINE - CARDIOVASCULAR DIVISION SECTION OF CARDIO-ONCOLOGY CLINIC VISIT Patient's Name: David Wei : 1940 Age: 82 y.o. Patient's Care Team: Patient Care Team: Kraig Ching MD as PCP - General Picus, MD Gautam as Medical Oncologist/Estimator (Medical Oncology) Tramaine oRe MD as Referring Physician (Urology) Sukhwinder Uribe MD as Consulting Physician (Urology) Shay Guillermo MD as Referring Physician (Urology) Marsha Landis RN as Registered Nurse Referring Provider: Mary Ellen Stone NP Chief Complaint/Reason for Visit: abnormal ecg Cardio-Oncology Problems: History of Present Illness: David Wei is a 82 y.o. male presents for above an abnormal ecg. For this his cataract surgery was cancelled. He had V bigeminy. No CP. No SOB or unusual GARCIA. No orthopnea, PND or leg swelling. No palpitations, dizziness or syncope. No symptoms referable to TIA/stroke. Review of Systems: Negative except otherwise mentioned in HPI Past Medical History: has a past medical history of Anemia, Chronic pain disorder, Diabetes (), Diverticulitis, Esophageal stricture, GERD (gastroesophageal reflux disease), History of pancreatitis (1998), History of prostate cancer, HTN (hypertension), Hyperlipidemia, Low back pain, Multiple gas tric ulcers, and Renal disease. He has no past medical history of Awareness under anesthesia, Delayed emergence from general anesthesia, Motion sickness, PONV (postoperative nausea and vomiting), Postoperative delirium, Pseudocholinesterase deficiency, or Sleep apnea. Lifetime Dose Tracking No doses have been documented on this patient for the following tracked chemicals: doxorubicin, epirubicin, idarubicin, daunorubicin, mitoxantrone, bleomycin, mitomycin, cyclophosphamide, carmustine,cisplatin, ifosfamide, carboplatin, fluorouracil, etoposide, doxorubicin HCl pegylated liposomal, et oposide phosphate, valrubicin, doxorubicin isotoxic equivalent Radiation Treatments No radiation treatments to show. (Treatments may have been administered in another system.) Past Surgical History: Past Surgical History: Procedure Laterality Date ABDOMINAL SURGERY 1998 Extensive abdominal surgery with Pancreatic abcess/pancreatitis CHOLECYSTECTOMY 1998 COLONOSCOPY Multiple-- Last 2012 PROSTATECTOMY 1999 UPPER GASTROINTESTINAL ENDOSCOPY 12/2017 Family History: No SCD, premature CAD or CHF. family history includes Dementia in his father; Diabetes type II in an other family member; Hypertension in an other family member; Kidney failure in hismother. Social History: reports that he quit smoking about 13 years ago. His smoking use included cigarettes. He started smoking about 66 years ago. He has a 11.25 pack- year smoking history. He has never used smokeless tobacco. He reports current drug use. Frequency: 1.00 time per week. Drug: Marijuana. Patient reports consuming alcoholic drinks , with a daily consumption of drinks. Patient denies daily consumption of 6 or more alcoholic drinks at one occasion. Allergies: Allergies Allergen Reactions Atorvastatin Muscle pain Home Medications: Current Outpatient Medications: abiraterone (ZYTIGA) 250 mg tablet, Take 4 tablets (1,000 mg) by mouth daily. Do not eat anything for at least 2 hours before and for at least 1 hour after, Disp: 120 tablet, Rfl: 4 Accu-Chek Fastclix Lancet Drum misc, USE DIRECTED, Disp: 204 each, Rfl: 1 albuterol HFA (PROVENTIL HFA,VENTOLIN HFA,PROAIR HFA) 90 mcg/actuation inhaler, Inhale 2 puffs every 8 (eight) hours as needed for wheezing or shortness of breath, Disp: , Rfl: aspirin 81 mg enteric coated tablet, Take 1 tablet (81 mg total) by mouth every morning, Disp: , Rfl: blood glucose diagnostic (Accu-Chek Guide test strips) strip, USE DIRECTED TO TEST BLOOD SUGAR TWICE DAILY., Disp: 200 strip, Rfl: 1 carvediloL (COREG) 12.5 mg tablet, TAKE 1 TABLET(12.5 MG) BY MOUTH TWICE DAILY WITH MEALS (Patient taking differently: Take 1 tablet (12.5 mg total) by mouth 2 (two) times a day with meals), Disp: 180 tablet, Rfl: 0 chlorthalidone 25 mg tablet, Take 1 tablet (25 mg total) by mouth daily (Patient taking differently: Take 1 tablet (25 mg total) by mouth every morning), Disp: 90 tablet, Rfl: 3 dorzolamide-timoloL (COSOPT) 22.3-6.8 mg/mL ophthalmic solution, Administer 1 drop into both eyes 2(two) times a day (Patient taking differently: Administer 1 drop into both eyes 2 (two) times a day), Disp: 10 mL, Rfl: 11 insulin aspart (NovoLOG) 100 unit/mL (3 mL) pen for injection, ADMINISTER 8 UNITS UNDER THE SKIN THREE TIMES DAILY BEFORE MEALS (Patient taking differently: Inject under the skin 3 (three) times a day with meals Sliding scale), Disp: 3 mL, Rfl: 11 insulin glargine (LANTUS) 100 unit/mL (3 mL) pen for injection, ADMINISTER 28 UNITS UNDER THE SKIN DAILY, Disp: 9 mL, Rfl: 11 Januvia 25 mg tablet, TAKE 1 TABLET BY MOUTH DAILY (Patient taking differently: Take 1 tablet (25 mg total) by mouth nightly), Disp: 30 tablet, Rfl: 11 ketorolac (ACULAR) 0.5 % ophthalmic solution, Instill one drop into surgical eye three time daily starting two days pre op (Patient taking differently: Instill one drop into surgical eye three time daily starting two days pre op), Disp: 5 mL, Rfl: 1 lisinopriL (PRINIVIL,ZESTRIL) 20 mg tablet, Take 1.5 tablets (30 mg total) by mouth daily (Patient taking differently: Take 1.5 tablets (30 mg total) by mouth every morning), Disp: 135 tablet, Rfl: 3 moxifloxacin (VIGAMOX) 0.5 % ophthalmic solution, Instill 1 drop into surgical eye three times daily starting two days before surgery (Patient taking differently: Instill 1 drop into surgical eye three times daily starting two days before surgery), Disp: 3 mL, Rfl: 1 oxyCODONE (ROXICODONE) 5 mg immediate release tablet, Take 1 tablet (5 mg total) by mouth every 6 (six) hours as needed for pain, Disp: 60 tablet, Rfl: [address] (PROTONIX) 40 mg EC tablet, TAKE 1 TABLET(40 MG) BY MOUTH DAILY (Patient taking differently: Take 1 tablet (40 mg total) by mouth every morning), Disp: 90 tablet, Rfl: 1 pen needle, diabetic (BD Ultra-Fine Short Pen Needle) 31 gauge x 5/16 needle, USE TO INJECT INSULIN 4 TIMES EVERY DAY DIRECTED, Disp: 400 each, Rfl: 11 pravastatin (PRAVACHOL) 20 mg tablet, TAKE 1 TABLET BY MOUTH EVERY DAY (Patient taking differently:Take 1 tablet (20 mg total) by mouth nightly), Disp: 90 tablet, Rfl: 3 prednisoLONE acetate (PRED FORTE) 1 % ophthalmic suspension, Instill 1 drop into surgical eye threetimes daily starting after surgery (Patient taking differently: Instill 1 drop into surgical eye three times daily starting after surgery), Disp: 5 mL, Rfl: 1 predniSONE (DELTASONE) 5 mg tablet, Take 1 tablet (5 mg) by mouth two times a day (Patient taking differently: Take 1 tablet (5 mg) by mouth 2 (two) times a day), Disp: 60 tablet, Rfl: 9 PreviDent 5000 Plus 1.1 % cream, Apply topically nightly, Disp: , Rfl: gabapentin (NEURONTIN) 100 mg capsule, Take 1 capsule (100 mg total) by mouth 3 (three) times a day, Disp: 270 capsule, Rfl: 3 Physical Exam: BMI: Body mass index is 29.85 kg/m??. BP (!) 192/97 (BP Location: Right arm, Patient Position: Sitting) Pulse 57 Ht 180.3 cm (5' 11 ) Wt 97.1 kg (214 lb) SpO2 98% BMI 29.85 kg/m?? Wt Readings from Last 3 Encounters: 03/23/23 96.6 kg (213 lb) 03/18/23 97.1 kg (214 lb) 03/08/23 98 kg (216 lb) BP Readings from Last 6 Encounters: 03/23/23 146/61 03/18/23 (!) 192/97 03/08/23 134/62 02/18/23 137/80 02/09/23 146/78 01/01/23 162/84 Pulse Readings from Last 3 Encounters: 03/23/23 67 03/18/23 57 03/08/23 82 Gen: NAD HEET: MMM CVS: RRR, no m/r/g Lungs: CTA B Abd: Soft, nontender Ext: No c/c/e Neuro: Alert and oriented x3 Psych: Normal mood and affect Data: Lab Results Component Value Date WBC 12.7 (H) 02/09/2023 WBC 11.2 (H) 11/17/2022 HGB 12.5 (L) 02/09/2023 HGB 12.1 (L) 11/17/2022 LABPLAT 391 02/09/2023 LABPLAT 343 11/17/2022 Lab Results Component Value Date SODIUM 144 03/18/2023 SODIUM 141 02/09/2023 POTASSIUM 4.5 03/18/2023 POTASSIUM 4.2 02/09/2023 POTASSIUM 4.9 11/17/2022 CHLORIDE 104 03/18/2023 CHLORIDE 103 02/09/2023 BUNSER 36 (H) 03/18/2023 BUNSER 34 (H) 02/09/2023 CREATININE 2.08 (H) 03/18/2023 CREATININE 1.97 (H) 02/09/2023 CREATININE 2.28 (H) 11/17/2022 Lab Results Component Value Date AST 11 02/09/2023 AST 13 11/17/2022 ALT 9 02/09/2023 ALT 12 11/17/2022 BILITOT 0.4 02/09/2023 BILITOT 0.4 11/17/2022 ALKPHOS 129 02/09/2023 ALKPHOS 112 11/17/2022 ALBUMIN 4.2 02/09/2023 ALBUMIN 4.0 11/17/2022 Lab Results Component Value Date CHOL 193 03/08/2023 CHOL 200 (H) 02/12/2022 HDL 36 (L) 03/08/2023 HDL 41 02/12/2022 HDL 34 (L) 12/26/2020 LDLDIRECT 113 12/26/2020 LDLCALC 107 03/08/2023 LDLCALC 105 02/12/2022 LDLCALC See Comment 12/26/2020 TRIG 250 (H) 03/08/2023 TRIG 268 (H) 02/12/2022 TRIG 611 (H) 12/26/2020 HGBA1C 8.3 (H) 03/08/2023 HGBA1C 7.9 08/18/2022 Lab Results Component Value Date NPROBNP 155 03/07/2019 No results found for: TROPIHS No results found for: TROPTHS No results found for: KAPPA , LAMBDAF , LIGHTCHAIN , PREALBUMIN ECHO: pending Impression: HTN, coreg 12.5, chlorthalidone 25, lisniopril 20 HLD PAF?? DM Prostate CA: Dx 1999, with a PSA of 5.5. He underwent a radical prostatectomy by Dr. Guillermo, and his pathology showed [place] 4 + 3 disease with extracapsular extension, and a positive margin. He received adjuvant radiation therapy, completed in November 1999. In August 2018, various imaging showed locally recurrent disease as well as a metastatic deposit at L2. Began Lupron, abiraterone, and prednisone in October 2018. This is a 82 y.o., male who presents to clinic for above. His cataract surgery was cancelled due toventricular bigeminy which has resolved. Plan: Can proceed with catarcat surgery. Check BMP and Mg. ECHO to eval LV fx and MCT to quantify PVC burden and questionable hx of afib Lipids should eb better controlled. Goal LDL <70. Defer to PCP. BP should be better controlled. Defer to PCP. Follow-Up: after MCT and echo. My total encounter time was 29 minutes which was spent reviewing previous medical history, outside medical records and tests, performing history and examination, counseling and documenting. Rodolfo Peters MD MSc [facility] Cardio-Oncology Orders Placed This Encounter Procedures Magnesium Standing Status: Future Number of Occurrences: 1 Standing Expiration Date: 03/18/2024 Basic metabolic panel Standing Status: Future Number of Occurrences: 1 Standing Expiration Date: 03/18/2024 MCT Mobile Cardiac Telemetry Event Monitor Standing Status: Future Number of Occurrences: 1 Standing Expiration Date: 03/18/2024 Order Specific Question: Choose duration of testing Answer: 30 Days Order Specific Question: Please select the performing department: Answer: [facility] [[id number]] ECG 12 lead Order Specific Question: Please select the performing location: Answer: [facility] (All Locations) [[id number]] Order Specific Question: Exam Type: Answer: Adult Order Specific Question: Reason / Symptom Answer: Other (specify) Transthoracic Echo (TTE) Complete W Doppler/CF Standing Status: Future Standing Expiration Date: 03/18/2024 Order Specific Question: Please select the performing department: Answer: [facility] [[id number]] Order Specific Question: Contrast Default Option Answer: Use Perflutren contrast if 2 of 16 LV wall segments in any view not visualized, using the volume necessary to obtain adequate images. Order Specific Question: Contrast Default Option Answer: An IVAD (Implanted Venous Access Device) may be accessed for contrast administration by following the Facility's policy for IVAD access. Order Specific Question: Strain Rate Imaging Answer: Study will include Strain Rate Imaging for improved image quality and measurement details unless denied by ordering MD No orders of the defined types were placed in this encounter. D SUPERVISOR documented in this encounter Plan of [...] to monitor diabetes and kidney status, etc. [facility] Chronic Pain Care Plan Chronic Care Management No change(03/23 1:47 PM FIELD SUPERVISOR) No Ingrid Oden, RN Note: Problem: Chronic Pain Goals: 1. Minimize further functional decline 2. Maximize quality of life 3. Control pain Strategies: - Activity/exercise program recommendation - Conservative stepwise pain medicine strategy with multi-disciplinary approach - Recommend healthy lifestyle strategies and compensatory methods as needed documented as of this encounter Procedures Procedure Name Priority Date/Time Associated Diagnosis Comments ECG 12-LEAD Routine 03/18/2023 Abnormal EKG documented in this encounter Results * TRANSTHORACIC ECHO (TTE) COMPLETE W DOPPLER/CF W CONTRAST (04/29/2023 12:39 PM FIELD SUPERVISOR) LV EF 71 % CARDIOREPORT Anatomical Region Laterality Modality Ultrasound 04/29/2023 11:3 0 AM FIELD SUPERVISOR Narrative 04/30/2023 8:14 AM FIELD SUPERVISOR Patient name: David Wei Date of test: 04/29/2023 Type of test: TTE w/Doppler [facility] #: 0 Date of : 1940 (M) Chimney Repairer: PETERSON Rios Referring Physician: RODOLFO PETERS MD Contrast Agent: 0.8 ml Optison Administered, (2.2 ml wasted). Contrast Administered by: Marsha Birmingham RN Supervised/Interpreted by: René Rivera MD Diagnosis: Location: [facility] Reason for test: Murmur, GARCIA MV Structure: [...] 2=Hypo 3=Akinetic 4=Dyskin./Aneurysm 0=Not visualized) Parasternal Long [place]:MAS=1 BAS=1 MIL=1 PAVEL=1 Parasternal Short [place]:MAS=1 MIS=1 TN=1 MIL=1 MAL=1 MA=1 Apical 4 Chambers:=1 MIS=1 BIS=1 BAL=1 MAL=1 AL=1 AC=1 Apical 2 Chambers:AI=1 TN=1 BI=1 BA=1 MA=1 AA=1 AC=1 LV Global [...] MD By signing this report, the attending diesel dinkey engineer certifies that he or she has personally supervised and interpreted the echocardiogram and has reviewed and or edited and agrees with the written comments contained within the report. Procedure Note René Rivera MD - 04/30/2023 Patient name: David Wei Date of test: 04/29/2023 Type of test: TTE w/Doppler [facility] #: 0 Date of : 1940 (M) Chimney Repairer: PETERSON Rios Referring Physician: RODOLFO PETERS MD Contrast Agent: 0.8 ml Optison Administered, (2.2 ml wasted). Contrast Administered by: Marsha Birmingham RN Supervised/Interpreted by: René Rivera MD Diagnosis: Location: [facility] Reason for test: Murmur, GARCIA MV Structure: [...] 2=Hypo 3=Akinetic 4=Dyskin./Aneurysm 0=Not visualized) Parasternal Long [place]:MAS=1 BAS=1 MIL=1 PAVEL=1 Parasternal Short [place]:MAS=1 MIS=1 TN=1 MIL=1 MAL=1 MA=1 Apical 4 Chambers:=1 MIS=1 BIS=1 BAL=1 MAL=1 AL=1 AC=1 Apical 2 Chambers:AI=1 TN=1 BI=1 BA=1 MA=1 AA=1 AC=1 LV Global [...] MD By signing this report, the attending diesel dinkey engineer certifies that he or she has personally supervised and interpreted the echocardiogram and has reviewed and or edited and agrees with the written comments contained within the report. us Rodolfo Peters MD CV ECHO PROCEDURES Final Result * [facility] Mobile Cardiac Telemetry Event Monitor (03/18/2023 4:19 PM FIELD SUPERVISOR) Anatomical Region Laterality Modality Electrocardiogra phy 03/18/2023 3:30 PM FIELD SUPERVISOR Narrative 04/19/2023 5:41 PM FIELD SUPERVISOR Patient name: David Wei Date of test: 03/18/2023 Type of Test: Event Monitor ([facility]) Hospital #: [id number] ?Location: [facility] Heart and Vascular : 1940 ??Age: 82 ??Sex: M Ref Physician(s): RODOLFO PETERS MD Interpreted by: Evaristo Nunez MD Kiosked: JJ Baker Diagnosis: Monitoring Service: Prevent[employer] Reason for Test: I48.91: Unspecified atrial fibrillation Monitor Used: Body Guardian Heart (MCT) ??[id number] Enrollment Period: Mar 18 - Apr 11, 2023 Kiosked comments: The device was applied by the food equipment service technician on this note. The patient was instructed on how to use the device. The patient's questions were answered and arrangements were made for the disconnection and return of this device. [place] Number of Transmissions Sent During Enrollment Period: 16 To obtain transmission tracing contact: Rhythm Summary: Bradycardia avg rate: 56 Bradycardia longest duration: 00:28:20 Bradycardia longest episode: 03/20/2023 04:58:00 Bradycardia shortest duration: 00:00:12 Bradycardia shortest episode: 03/20/2023 06:31:00 Mean heart rate: 71 Pauses >= 3 seconds: 0 Tachycardia avg rate: 97 Tachycardia longest duration: 00:03:16 Tachycardia longest episode: 03/25/2023 16:19:00 Tachycardia shortest duration: 00:00:02 Tachycardia shortest episode: 03/20/2023 05:59:00 Cardiologis Review of Transmissions: 25 day study of 739,000 beats. 50<HR<109:: ??AVG HR = 71 The patient's monitoring period was 03/18/2023 - [...] The full scanned/data report is available in [facility]. labeled MONITOR STRIPS PDF . This study was interpreted by Evaristo Nunez MD Confirmed on ??04/19/2023 - 17:41:03 by Evaristo Nunez MD Summary of Transmitted Events: # ??Date ? Time ?HR ?Symptoms/Rhythm ? 16 03/28/23 01:05 ?? 137.0 ?? Auto Trigger ? Sinus Rhythm w/Run of V-Tach (4 Beats)/1st Degree AV Blo 15 03/27/23 22:20 ?? 67.0 ?Passed Out ? Sinus Rhythm w/1st Degree AV Block/PVCs (1 in 1 min) ?? 14 03/27/23 18:33 ?? 79.0 ?None Reported ? Sinus Rhythm w/1st Degree AV Block/PVCs (1 in 1 min)/PAC 13 03/26/23 13:17 ?? 101.0 ?? Auto Trigger ? Sinus Tachycardia, Sinus Bradycardia w/IVCD/Couplet PVCs 12 03/26/23 00:05 ?? 121.0 ?? Auto Trigger ? Sinus Arrhythmia w/Run of V-Tach (3 - 5 beats)/MF PVCs ( 11 03/23/23 22:46 ?? 108.0 ?? Auto Trigger ? Sinus Rhythm, Accelerated Idioventricular Rhythm w/Run o 10 03/23/23 21:42 ?? 94.0 ?Auto Trigger ? Sinus Arrhythmia w/1st Degree AV Block/PVCs (4 in 1 min) 9 ??03/23/23 18:25 ?? 163.0 ?? Auto Trigger ? Sinus Rhythm w/Run of V-Tach (4 beats)/PVCs (13 in ??1 mi 8 ??03/21/23 12:46 ?? 0.01 ?Auto Trigger ? Sustained w/Artifact ? 7 ??03/21/23 03:02 ?? 161.0 ?? Auto Trigger ? Sinus Rhythm w/Run of V-Tach (5 beats)/1st Degree AV Blo 6 ??03/20/23 19:14 ?? 118.0 ?? Auto Trigger ? Sinus Arrhythmia w/Run of V-Tach (4 beats)/PVCs (15 in 1 5 ??03/20/23 06:47 ?? 82.0 ?Auto Trigger ? Sinus Rhythm w/Couplet PVCs/Trigeminal PVCs/MF PVCs (23 4 ??03/19/23 21:35 ?? 131.0 ?? Auto Trigger ? Sinus Rhythm w/Atrial Run/PVCs (12 in 1 min)/PACs/Morpho 3 ??03/19/23 02:54 ?? 121.0 ?? Auto Trigger ? Sinus Rhythm w/Run of V-Tach (6 beats)/1st Degree AV Blo 2 ??03/18/23 15:46 ?? 65.0 ?Auto Trigger ? Sinus Rhythm w/1st Degree AV Block/PVCs (14 in 1 min) ?? 1 ??03/18/23 15:38 ?? 59.7 ?Baseline None or Accidental Push ??Sinus Rhythm, Sinus Bradycardia w/PVCs (4 in 1 min)/Yessica I have personally reviewed and interpreted this study. Procedure Note Evaristo Nunez MD PhD - 04/19/2023 Patient name: David Wei Date of test: 03/18/2023 Type of Test: Event Monitor ([facility]) Hospital #: [id number] Location: [facility] Heart and Vascular : 1940 Age: 82 Sex: M Ref Physician(s): RODOLFO PETERS MD Interpreted by: Evaristo Nunez MD Hook-Up Tech: Mary Jo Esquivel [facility] Diagnosis: Monitoring Service: [employer] Reason for Test: I48.91: Unspecified atrial fibrillation Monitor Used: Body [employer] | [employer] ([facility]) [id number] Enrollment Period: Mar 18 - Apr 11, 2023 Hook-Up Tech comments: The device was applied by the food equipment service technician on this note. The patient was instructed on how to use the device. The patient's questions were answered and arrangements were made for the disconnection and return of this device. [place] Number of Transmissions Sent During Enrollment Period: 16 To obtain transmission tracing contact: Rhythm Summary: Bradycardia avg rate: 56 Bradycardia longest duration: 00:28:20 Bradycardia longest episode: 03/20/2023 04:58:00 Bradycardia shortest duration: 00:00:12 Bradycardia shortest episode: 03/20/2023 06:31:00 Mean heart rate: 71 Pauses >= 3 seconds: 0 Tachycardia avg rate: 97 Tachycardia longest duration: 00:03:16 Tachycardia longest episode: 03/25/2023 16:19:00 Tachycardia shortest duration: 00:00:02 Tachycardia shortest episode: 03/20/2023 05:59:00 Cardiologis Review of Transmissions: 25 day study of 739,000 beats. 50<HR<109:: AVG HR = 71 The patient's monitoring period was 03/18/2023 - [...] The full scanned/data report is available in [facility]. labeled MONITOR STRIPS PDF . This study was interpreted by Evaristo Nunez MD Confirmed on 04/19/2023 - 17:41:03 by Evaristo Nunez MD Summary of Transmitted Events: # Date Time HR Symptoms/Rhythm 03/28/23 01:05 137.0 Auto Trigger Sinus Rhythm w/Run of V-Tach (4 Beats)/1st Degree AV Blo 03/27/23 22:20 67.0 Passed Out Sinus Rhythm w/1st Degree AV Block/PVCs (1 in 1 min) 03/27/23 18:33 79.0 None Reported Sinus Rhythm w/1st Degree AV Block/PVCs (1 in 1 min)/PAC 03/26/23 13:17 101.0 Auto Trigger Sinus Tachycardia, Sinus Bradycardia w/IVCD/Couplet PVCs 03/26/23 00:05 121.0 Auto Trigger Sinus Arrhythmia w/Run of V-Tach (3 - 5 beats)/MF PVCs ( 11 03/23/23 22:46 108.0 Auto Trigger Sinus Rhythm, Accelerated Idioventricular Rhythm w/Run o 10 03/23/23 21:42 94.0 Auto Trigger Sinus Arrhythmia w/1st Degree AV Block/PVCs (4 in 1 min) 9 03/23/23 18:25 163.0 Auto Trigger Sinus Rhythm w/Run of V-Tach (4 beats)/PVCs (13 in 1 mi 8 03/21/23 12:46 0.01 Auto Trigger Sustained w/Artifact 7 03/21/23 03:02 161.0 Auto Trigger Sinus Rhythm w/Run of V-Tach (5 beats)/1st Degree AV Blo 6 03/20/23 19:14 118.0 Auto Trigger Sinus Arrhythmia w/Run of V-Tach (4 beats)/PVCs (15 in 1 5 03/20/23 06:47 82.0 Auto Trigger Sinus Rhythm w/Couplet PVCs/Trigeminal PVCs/MF PVCs (23 4 03/19/23 21:35 131.0 Auto Trigger Sinus Rhythm w/Atrial Run/PVCs (12 in 1 min)/PACs/Morpho 3 03/19/23 02:54 121.0 Auto Trigger Sinus Rhythm w/Run of V-Tach (6 beats)/1st Degree AV Blo 2 03/18/23 15:46 65.0 Auto Trigger Sinus Rhythm w/1st Degree AV Block/PVCs (14 in 1 min) 1 03/18/23 15:38 59.7 Baseline None or Accidental Push Sinus Rhythm, Sinus Bradycardia w/PVCs (4 in 1 min)/Yessica I have personally reviewed and interpreted this study. us Rodolfo Peters MD [facility] CARDI[facility] SERVICES PROCEDURES F inal Result * (ABNORMAL) Basic metabolic panel (03/18/2023 4:15 PM FIELD SUPERVISOR) Sodium 144 135 - 145 mmol/L [facility] Potassium, pl 4.5 3.3 - 4.9 mmol/L [facility] Chloride 104 97 - 110 mmol/L [facility] CO2 28 22 - 32 mmol/L [facility] Anion gap 12 2 - 15 mmol/L [facility] BUN 36(H) 6 - 25 mg/dL [facility] Creatinine 2.08(H) 0.80 - 1.30 mg/dL [facility] Glucose 137 70 - 199 mg/dL [facility] Comment: Interpretive Data Fasting glucose [...] 2022. Calcium 9.1 8.5 - 10.3 mg/dL [facility] Blood 03/18/2023 4:15 PM FIELD SUPERVISOR 03/18/2023 4:45 PM FIELD SUPERVISOR us Rodolfo Peters MD LAB BLOOD ORDERABLES Final Resul t Performing Organization Address City/[facility] Co de Phone Number [facility] Department [place] [address] * Magnesium (03/18/2023 4:15 PM FIELD SUPERVISOR) [facility] Magnesium 1.7 1.4 - 2.5 mg/dL [facility] Blood 03/18/2023 4:15 PM FIELD SUPERVISOR 03/18/2023 4:45 PM FIELD SUPERVISOR us Rodolfo Peters MD LAB BLOOD ORDERABLES Final Resul t Performing Organization Address City/[facility]/ZIP Co de Phone Number [facility] Department [place] [address] * ECG 12 lead (03/18/2023) us Rodolfo Peters MD ECG ORDERABLES Edited Result - Final documented in this encounter Visit Diagnoses Diagnosis Abnormal EKG Nonspecific abnormal electrocardiogram (ECG) (EKG) Systolic murmur Undiagnosed cardiac murmurs Ventricular trigeminy Abnormal EKG Nonspecific abnormal electrocardiogram (ECG) (EKG) Ventricular trigeminy Systolic murmur Undiagnosed cardiac murmurs documented in this encounter Orders Outpatient Referral Count Last Ordered Date Fir st Ordered Date AMB REFERRAL TO CARDIOLOGY 1 03/18/2023 documented in this encounter Care Teams Top Former Relationship Specialty Start Date End Date Kraig Ching MD [address] [facility] [address] [place] [address] PCP - General 07/10/16 Gautam Cope MD [address] [facility] [address] [place] [address] Medical Oncologist/Estimator Medical Oncology 08/18/18 Tramaine Roe MD [address] [facility] [address] [place] [address] Referring Physician Urology 08/18/18 Sukhwinder Uribe MD [address] [facility] [address] [place] [address] Consulting Physician Urology 08/18/18 Shay Guillermo MD [address] [facility] [address] [place] [address] Referring Physician Urology 08/18/18 Marsha Landis, RN Registered Nurse 11/17/18 documented as of this encounter"
--- OUTSIDE RECORDS SUMMARY | 2024-03-31 04:54 | XMS_ITS | Encounter Summary ---
Author Organization [facility] Healthcare Address [address] [place] [address] Care Team Providers Care Sequencing Machine Operator Name Role Phone Kraig Ching MD Primary Care Provider [phone] Gautam Cope MD Unavailable Tramaine Roe MD Unavailable [phone] Sukhwinder Uribe MD Unavailable [phone] Shay Guillermo MD Unavailable [phone] Marsha Landis RN Unavailable Unavailab le Encounter Details Date Type Department Care Team (Latest Contact Info) Description 03/08/2023 11:55 AM COSMETICS SUPERVISOR - 03/08/2023 11:59 PM COSMETICS SUPERVISOR Hospital Encounter [facility] [address] [place] [address] Discharge Disposition: Discharge to home or self [...] on file 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 COSMETICS SUPERVISOR Gender Identity Not on file Sexual [...] kidney disease) stage 3, GFR 30-59 ml/min ([facility]) TAKE 1 TABLET(12.5 MG) BY MOUTH TWICE [...] disease, without long-term current use of insulin ([facility]) TAKE 1 TABLET BY MOUTH DAILY 30 [...] Chronic Care Management No change(03/23 1:47 PM COSMETICS SUPERVISOR) No Ingrid Oden, RN Note: Problem: Chronic Pain Goals: 1. Minimize further functional decline 2. Maximize quality of life 3. Control pain Strategies: - Activity/exercise program recommendation - Conservative stepwise pain medicine strategy with multi-disciplinary approach - Recommend healthy lifestyle strategies and compensatory methods as needed documented as of this encounter Visit Diagnoses Not on filedocumented in this encounter Care Teams Sequencing Machine Operator Relationship Specialty Start Date End Date Kraig Ching MD [address] [place] [address] PCP - General 07/10/16 Gautam Cope MD [address] [place] [address] Medical Oncologist/Tar Pot Man Medical Oncology 08/18/18 Tramaine Roe MD [address] [place] [address] Referring Physician Urology 08/18/18 Sukhwinder Uribe MD [address] [place] [address] Consulting Physician Urology 08/18/18 Shay Guillermo MD [address] [place] [address] Referring Physician Urology 08/18/18 Marsha Landis, RN Registered Nurse 11/17/18 documented as of this encounter
--- OUTSIDE RECORDS SUMMARY | 2024-03-31 04:54 | XMS_ITS | Encounter Summary ---
Author Organization [facility] Address [address] [place] [address] Phone Care Team Providers Care Laboratory Tester Name Role Phone Kraig Ching MD Primary Care Provider [phone] Gautam Cope MD Unavailable Tramaine Roe MD Unavailable [phone] Sukhwinder Uribe MD Unavailable [phone] Shay Guillermo MD Unavailable [phone] Marsha Landis RN Unavailable Unavailab le Reason for Visit * Consultation (Routine) - Authorized Specialty Diagnoses / Procedures Referred By Saleem narvaez Referred To Contact Oncology Diagnoses Prostate cancer (HCC) Tramaine Roe MD [address] [facility] [address] [place] [address] Phone: tel: fax: Gautam Cope MD [address] [facility], [address] [place] [address] Phone: tel: fax: Referral ID Status Reason Start Date Expiration Date Visits Requested Visits Authorized [id number] Authorized Specialty Services Required 08/15/2018 04/11/2024 99 99 Encounter Details Date Type Department Care Team (Late st Contact Info) Description 11/17/2022 10:45 AM CDT Office Visit [facility] Oncology [facility] 7th [place] [address] [place] [address] Gautam Cope MD [address] [facility] [address] [place] [address] Prostate cancer (HCC) (Primary Dx) Social History [...] file 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 MEDICAL BILLING MANAGER Gender Identity Not on file Sexual Orientation Not on file documented as of this encounter Last Filed Vital Signs Vital Sign Reading Time Taken Comments Blood Pressure 130/68 11/17/2022 10:24 AM CDT Pulse 75 11/17/2022 10:24 AM CDT Temperature 36.4 ??C (97.6 ??F) 11/17/2022 1 0:22 AM CDT Respiratory Rate 18 11/17/2022 10:2 2 AM CDT Oxygen Saturation 95% 11/17/2022 10: 24 AM CDT Inhaled Oxygen Concentration - - Weight 99.7 kg (219 lb 12.8 oz) 023 10:22 AM CDT Height - - Body Mass Index 31.54 08/18/2022 11:43 AM CDT documented in this encounter Progress Notes * Gautam Cope MD - 11/17/2022 12:00 AM CDT PATIENT NAME: DAVID DREW : 1940 [place]: 11/17/2022 Mr. Drew is an 82-year-old, with metastatic prostate cancer. He presented in 1999, with a PSA of 5.5. He ultimately underwent a radical prostatectomy by Dr. Guillermo, showing [place] 4 + 3 disease, with extracapsular extension and positive margin. He did receive adjuvant radiation therapy, completing this in November 1999. In June 2012, his PSA was noted to be rising. By 2018, his PSA was up into the double digits. An MRI scan of his pelvis in August 2018 suggested local recurrent disease. Further workup also showed a metastatic deposit at L2. We met the patient soon after the MRI was done and started him on Lupron, abiraterone, and prednisone in October 2018. He has had an excellent serological and radiological response, with an undetectable PSA. He remains with nocturia x3. He also has some problems with hot flashes, particularly at night, which wake him up. He has chronic lower back pain, and is on pain medications prescribed by his primary care physician. He is due to have cataract surgery sometime in the next several months. He is followed by Nephrology for chronic kidney diseaseand also followed by other physicians for his hypertension, diabetes, paroxysmal atrial fibrillation, and hyperlipidemia. He has also been noted to have ground-glass opacities in his lungs and has had several CT scans, which suggest stability of this. We are planning a repeat chest CT scan in April of next year. PHYSICAL EXAMINATION: Vital Signs: Shows a male whose weight is 99.7 kg. Blood pressure 130/68, pulse 75. He is afebrile.O2 saturation is 95%. Performance Status: His performance status is 60%. Nodes: He has no palpable cervical or supraclavicular adenopathy. Lungs: Clear to auscultation and percussion. Cardiac: Blowing systolic murmur, with an S2 and occasional extra beats. Abdomen: No hepatosplenomegaly or palpable masses. He has a fair amount of abdominal distention from his overweight. Extremities: No edema, but he has scattered ecchymosis. Neurological: Shows some difficulty standing without assistance, and currently, he is walking long distances with the help of a wheelchair for support. LABORATORY DATA: Laboratories today show a hemoglobin 12.1, white count 11,200, platelet count 343,000. His PSA remains 0.02. Other laboratories from today are pending. ASSESSMENT AND PLAN: 1. Metastatic prostate cancer, currently remaining on leuprolide, abiraterone, and prednisone. Thishas controlled his cancer very well. We last did cross- sectional imaging in March 2021, and we are not planning to repeat it again for at least 3 years, unless there is a change in his PSA. We areplanning for a noncontrast chest CT to follow up on the ground-glass opacities in April. He was recently diagnosed with [place] 7 disease in 1999, treated with a radical prostatectomy, adjuvant radiation therapy, and he began hormonal therapy in 2018, with evidence of metastatic disease at L2. 2. Diabetes. 3. Chronic kidney disease. 4. Chronic low back pain, due to degenerative joint disease. 5. Ground-glass opacity with a repeat scan to be scheduled, noncontrast, in April 2023. 6. Bilateral cataracts, due to have these resected in the next several months. The patient is doing well in regards to his cancer. His other medical problems are under the care of his other physicians. We will plan to see him again in 12 weeks. ELECTRONICALLY SIGNED - 11/17/2022 11:42 AM Gautam Cope M.D. director of integrated marketing GLORIA/lul documented in this encounter Plan of Treatment [...] to monitor diabetes and kidney status, etc. [facility] Chronic Pain Care Plan Chronic Care Management No change(03/23 1:47 PM MEDICAL BILLING MANAGER) No Ingrid Oden, SHEA Note: Problem: Chronic Pain Goals: 1. Minimize further functional decline 2. Maximize quality of life 3. Control pain Strategies: - Activity/exercise program recommendation - Conservative stepwise pain medicine strategy with multi-disciplinary approach - Recommend healthy lifestyle strategies and compensatory methods as needed documented as of this encounter Results * PSA diagnostic (02/09/2023 10:29 AM CDT) PSA-Total <0.02 <=6.20 ng/mL [facility] Comment: Interpretive Data ?AGE ? SEX ?REFERENCE [...] Current interpretive data last revised 21. Blood 02/09/2023 10:2 9 AM CDT 02/09/2023 11:05 AM CDT us Gautam Cope MD LAB BLOOD ORDERABLES Final Resul t [facility] Department [place] [address] * (ABNORMAL) Comprehensive metabolic panel (02/09/2023 10:29 AM CDT) Sodium 141 135 - 145 mmol/L [facility] Comment:Testing performed by : [facility], [address] [place] [phone] Potassium, pl 4.2 3.3 - 4.9 mmol/L [facility] Comment:Testing performed by : [facility], [address] [place] [phone] Chloride 103 97 - 110 mmol/L [facility] Comment:Testing performed by : [facility], [address] [place] [phone] CO2 30 22 - 32 mmol/L [facility] Comment:Testing performed by : [facility], [address] [place] [phone] Anion gap 8 2 - 15 mmol/L [facility] Comment:Testing performed by : [facility], [address] [place] [phone] BUN 34(H) 6 - 25 mg/dL [facility] Comment:Testing performed by : [facility] [address] [phone] Creatinine 1.97(H) 0.80 - 1.30 mg/dL [facility] Comment:Testing performed by : [facility], [address] [place] [phone] Glucose 108 70 - 199 mg/dL [facility] Comment: [...] was last revised 2022. Testing performed by: [address] [address] Calcium 9.6 8.5 - 10.3 mg/dL [facility] Comment:Testing performed by : [facility], [address] [place] [phone] Bilirubin, total 0.4 0.1 - 1.2 mg/dL [facility] Comment:Testing performed by : [address] [phone] Protein, pl 7.0 6.5 - 8.5 g/dL [facility] Comment:Testing performed by : [address] [phone] Albumin 4.2 3.5 - 5.0 g/dL [facility] Comment:Testing performed by : [address] [phone] Alk phos 129 40 - 130 Units/L [facility] Comment:Testing performed by : [address] [phone] ALT 9 7 - 55 Units/L [facility] Comment:Testing performed by : [address] [phone] AST 11 10 - 50 Units/L [facility] Comment:Testing performed by : [facility], [address] [place] [phone] Blood 02/09/2023 10:2 9 AM CDT 02/09/2023 10:32 AM CDT us Gautam Cope MD LAB BLOOD ORDERABLES Final Resul t [facility] Department [place] [address] * (ABNORMAL) CBC with auto differential (02/09/2023 10:29 AM CDT) WBC 12.7(H) 3.8 - 9.8 K/cumm [facility] Comment:Testing performed by : [facility], [address] [place] [phone] Hgb 12.5(L) 13.8 - 17.2 g/dL [facility] Comment: Interpretive Data A reference range for this assay has not been established for patients with an unknown legal sex. Please refer to the laboratory test catalog for established sex-specific reference intervals. Current interpretive data was last revised on 2023. Testing performed by: [facility], [address] [place] [phone] Hct 38.5(L) 40.7 - 50.3 % [facility] Comment: Interpretive Data A reference range for this assay has not been established for patients with an unknown legal sex. Please refer to the laboratory test catalog for established sex-specific reference intervals. Current interpretive data was last revised on 2023. Testing performed by: [facility], [address] [place] [phone] Plt 391 140 - 440 K/cumm [facility] Comment:Testing performed by : [facility], [address] [place] [phone] MPV 7.8 6.8 - 10.4 fL [facility] Comment:Testing performed by : [address] [phone] RBC 4.27(L) 4.50 - 5.70 M/cumm [facility] Comment: Interpretive Data A reference range for this assay has not been established for patients with an unknown legal sex. Please refer to the laboratory test catalog for established sex-specific reference intervals. Current interpretive data was last revised on 2023. Testing performed by: [facility], [address] [place] [phone] MCV 90.1 80.0 - 97.6 fL [facility] Comment:Testing performed by : [facility], [address] [place] [phone] MCH 29.3 26.7 - 33.7 pg [facility] Comment:Testing performed by : [facility], [address] [place] [phone] MCHC 32.5(L) 32.7 - 35.5 g/dL [facility] Comment:Testing performed by : [facility], [address] [place] [phone] RDW CV 14.3 11.8 - 14.6 % [facility] Comment:Testing performed by : [facility], [address] [place] [phone] NRBC abs 0.00 0.00 - 0.01 K/cumm [facility] Comment:Testing performed by : [facility], [address] [place] [phone] Blood 02/09/2023 10:2 9 AM CDT 02/09/2023 10:31 AM CDT us Gautam Cope MD LAB BLOOD ORDERABLES Final Resul t [facility] Department [place] [address] * Lactate dehydrogenase (LD) (02/09/2023 10:29 AM CDT) Lactate dehydrogenase (LDH) 177 100 - 250 Units/L [facility] Comment:Testing performed by : [facility], [address] [place] [phone] Blood 02/09/2023 10:2 9 AM CDT 02/09/2023 10:32 AM CDT us Gautam Cope MD LAB BLOOD ORDERABLES Final Resul t [facility] Department [place] [address] documented in this encounter Visit Diagnoses Diagnosis Prostate cancer (HCC)- Primary Malignant neoplasm of prostate documented in this encounter Discontinued Medications Medication Sig Discontinue Reason Start Date End Da te latanoprost (XALATAN) 0.005 % ophthalmic solution Therapy completed 05/03/2021 11/17/2022 TRAVATAN Z 0.004 % drops INT 1 DROP INTO OU QHS Therapy completed 12/28/2017 11/17/2022 aspirin 81 mg tablet Take 1 tablet (81 mg total) by mouth daily. 03/07/2018 11/17/2022 documented as of this encounter Orders Appointment Requests Count Last Ordered Date Fi rst Ordered Date ONCBCN CLINIC APPOINTMENT REQUEST 2 023 11/17/2022 ONCBCN INJECTION APPOINTMENT REQUEST 1 01/12 ONCBCN LAB APPOINTMENT 1 02/09/2023 documented in this encounter Care Teams Laboratory Tester Relationship Specialty Start Date End Date Kraig Ching MD [address] [facility] [address] [place] [address] PCP - General 07/10/16 Gautam Cope MD [address] [facility] [address] [place] [address] Medical Oncologist/Billing Analyst Medical Oncology 08/18/18 Tramaine Roe MD [address] [place] [address] Referring Physician Urology 08/18/18 Sukhwinder Uribe MD [address] [facility] [address] [place] [address] Consulting Physician Urology 08/18/18 Shay Guillermo MD [address] [facility] [address] [place] [address] Referring Physician Urology 08/18/18 Marsha Landis RN Registered Nurse 11/17/18 documented as of this encounter
--- OUTSIDE RECORDS SUMMARY | 2024-03-31 04:54 | XMS_ITS | Encounter Summary ---
Author Organization [facility] Healthcare Address [address] [place] [address] Care Team Providers Care Residential Electrician Name Role Phone Kraig Ching MD Primary Care Provider [phone] Gautam Cope MD Unavailable Tramaine Roe MD Unavailable [phone] Sukhwinder Uribe MD Unavailable [phone] Shay Guillermo MD Unavailable [phone] Marsha Landis RN Unavailable Unavailab le Reason for Visit * Reason Onset Date Comments Back Pain 02/03/2023 Med Change Request 02/03/2023 Additional Services Or Orders 02/03/2023 Encounter Details Date Type Department Care Team (Late st Contact Info) Description 02/03/2023 Nurse Triage [facility] [address] [facility] [address] [place] [address] Liz Adams RN Social History Tobacco Use Types Packs/Day [...] containing alc ohol? 2-4 times a month 05/19/2023 Q2: How many drinks containi ng alcohol do you have on a typical day when you are drinking? 1 or 2 05/19/2023 Q3: How often do you have si x or more drinks on one occasion? 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 condition/symptom, date of COVID exposure if applicable): severe back pain Details Regarding Additional Services (e.g. type of home health, type of equipment, type of test, etc.): new back CT or X-ray order Where will services be performed? (if outside of the practice, facility name, address, phone/fax offacility): Place order in [facility] (for [facility] scheduling) Additional Comments: Urgently seeking. Does message need to be routed? Yes-Action Needed * Telephone Encounter - Janice Cole - 02/04/2023 10:11 AM CDT Call Back Caller???s Concern: Patient said the nurse mentioned getting an xray, but the patient has another solution that might work. Please call patient back to discuss. Does message need to be routed? Yes-Action Needed * Telephone Encounter - Liz Adams RN - 02/03/2023 2:54 PM CDT David Wei calling due to severe low back pain. HX of Herniated disc for a few years. Statesthis pain is worse. States with certain movements pain shoots up his back. Pain 7-8/10. Better whensitting and resting. Notes some numbness down to his legs at times that goes away when he sits down. States Cortisone shots helped with his back pain in the past. Does not take OTC due to kidney issues. Has script for oxycodone but does not like to take it. Declines appt as he states his eye sight is bad and he is not comfortable driving at this time. rn admission Disposition: go to office now. No appt available. Pt declines appt at this time. Encouraged to call back if there are further questions or concerns. Encouraged to call back if symptoms persist or worsen. Routing to Kraig Ching MD's office to determine further care advice/ treatment options for pt. Pt mentioned referral to pain clinic. Reason for Disposition SEVERE back pain (e.g., excruciating, unable to do any normal activities) and not improved after pain medicine and CARE ADVICE Protocols used: Back Jobd-ELBXS-DR * Telephone Encounter - Wendy Pereyra RN - 02/03/2023 2:29 PM CDT Regarding: Severe sharp lower back pain ----- Message from Abigail Tang sent at 02/03/2023 2:26 PM CDT ----- Symptom Based Call Chief Complaint(s): Severe sharp lower back pain, Duration: 1 week What type of symptom(s) is the patient experiencing? Red Flag. Is the patient concerned they are experiencing a medical emergency requiring an ambulance? No Additional Comments: Hurts to walk and make fast turns. Patient rates pain at an 8 out of 10. Patient was asking for muscle relaxers. Does message need to be routed? Yes-Action [...] to monitor diabetes and kidney status, etc. [facility] Chronic Pain Care Plan Chronic Care Management No change(03/23 1:47 PM RESOURCE SPECIALIST) No Ingrid Oden, SHEA Note: Problem: Chronic Pain Goals: 1. Minimize further functional decline 2. Maximize quality of life 3. Control pain Strategies: - Activity/exercise program recommendation - Conservative stepwise pain medicine strategy with multi-disciplinary approach - Recommend healthy lifestyle strategies and compensatory methods as needed documented as of this encounter Visit Diagnoses Not on filedocumented in this encounter Care Teams Residential Electrician Relationship Specialty Start Date End Date Kraig Ching MD [address] [place] [address] PCP - General 07/10/16 Gautam Cope MD [address] [place] [address] Medical Oncologist/Superintendent Generating Plant Medical Oncology 08/18/18 Tramaine Roe MD [address] [place] [address] Referring Physician Urology 08/18/18 Sukhwinder Uribe MD [address] [place] [address] Consulting Physician Urology 08/18/18 Shay Guillermo MD [address] [place] [address] Referring Physician Urology 08/18/18 Marsha Landis, RN Registered Nurse 11/17/18 documented as of this encounter
--- OUTSIDE RECORDS SUMMARY | 2024-03-31 04:54 | XMS_ITS | Encounter Summary ---
Author Organization [facility] Address [address] [place] [address] Phone Care Team Providers Care Certified Composites Technician Name Role Phone Kraig Ching MD Primary Care Provider [phone] Gautam Cope MD Unavailable Tramaine Roe MD Unavailable [phone] Sukhwinder Uribe MD Unavailable [phone] Shay Guillermo MD Unavailable [phone] Marsha Landis RN Unavailable Unavailab le Encounter Details Date Type Department Care Team (Late st Contact Info) Description 12/18/[address] 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 * Telephone Encounter - Janice Goldman - 12/18/2022 11:55 AM CDT ----- Message from Higinio Connolly [...] Chronic Care Management No change(03/23 1:47 PM COAL CUTTER) No Ingrid Oden, SHEA Note: Problem: Chronic Pain Goals: 1. Minimize further functional decline 2. Maximize quality of life 3. Control pain Strategies: - Activity/exercise program recommendation - Conservative stepwise pain medicine strategy with multi-disciplinary approach - Recommend healthy lifestyle strategies and compensatory methods as needed documented as of this encounter Visit Diagnoses Not on filedocumented in this encounter Care Teams Certified Composites Technician Relationship Specialty Start Date End Date Kraig Ching MD [address] [facility] [address] [place] [address] PCP - General 07/10/16 Gautam Cope MD [address] [facility] [address] [place] [address] Medical Oncologist/Aircraft Engine Mechanic Supervisor Medical Oncology 08/18/18 Tramaine Roe MD [address] [facility] [address] [place] [address] Referring Physician Urology 08/18/18 Sukhwinder Uribe MD [address] [facility] [address] [place] [address] Consulting Physician Urology 08/18/18 Shay Guillermo MD [address] [facility] [address] [place] [address] Referring Physician Urology 08/18/18 Marsha Landis, RN Registered Nurse 11/17/18 documented as of this encounter
--- OUTSIDE RECORDS SUMMARY | 2024-03-31 04:54 | XMS_ITS | Encounter Summary ---
Author Organization [facility] Address [address] [place] [address] Phone Care Team Providers Care Mechanical Product Design Engineer Name Role Phone Kraig Ching MD Primary Care Provider [phone] Gautam Cope MD Unavailable Tramaine Roe MD Unavailable [phone] Sukhwinder Uribe MD Unavailable [phone] Shay Guillermo MD Unavailable [phone] Marsha Landis RN Unavailable Unavailab le Reason for Visit * Cardiology (Routine) - Closed Specialty Diagnoses / Procedures Referred By Contac t Referred To Contact Diagnoses Abnormal EKG Ventricular trigeminy Procedures MCT Mobile Cardiac Telemetry Event Monitor Rodolfo Peters MD [address] [place] [address] Phone: tel: fax: [facility] [address] [place] [address] Referral ID Status Reason Start Date Expiration Date Visits Re quested Visits Authorized [id number] Closed 03/18/2023 04/16/2024 1 1 Encounter Details Date Type Department Care Team (Latest Contact Info) Description 03/18/2023 3:30 PM PRODUCTION TEAM ADVISOR Ancillary Procedure [facility] Cardiology [address] [facility] [address] 8th [place] [address] [place] [address] Abnormal EKG; Ventricular trigeminy Social History Tobacco Use Types [...] on file 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 PRODUCTION TEAM ADVISOR Gender Identity Not on file Sexual Orientation [...] to monitor diabetes and kidney status, etc. [facility] Chronic Pain Care Plan Chronic Care Management No change(03/23 1:47 PM PRODUCTION TEAM ADVISOR) No Ingrid Oden, SHEA Note: Problem: Chronic Pain Goals: 1. Minimize further functional decline 2. Maximize quality of life 3. Control pain Strategies: - Activity/exercise program recommendation - Conservative stepwise pain medicine strategy with multi-disciplinary approach - Recommend healthy lifestyle strategies and compensatory methods as needed documented as of this encounter Procedures Procedure Name Priority Date/Time Associated Diagnosis Comments [facility] - MOBILE CARDIAC TELEMETRY EVENT MONITOR Routine 03/18/2023 4:19 PM PRODUCTION TEAM ADVISOR Abnormal EKG Ventricular trigeminy documented in this encounter Results * [facility] Mobile Cardiac Telemetry Event Monitor (03/18/2023 4:19 PM PRODUCTION TEAM ADVISOR) Anatomical Region Laterality Modality Electrocardiogra phy 03/18/2023 3:30 PM PRODUCTION TEAM ADVISOR Narrative 04/19/2023 5:41 PM PRODUCTION TEAM ADVISOR Patient name: David Wei Date of test: 03/18/2023 Type of Test: Event Monitor ([facility]) [facility] #: [id number] ?Location: [facility] Heart and Vascular : 1940 ??Age: 82 ??Sex: M Ref Physician(s): RODOLFO PETERS MD Interpreted by: Evaristo Nunez MD [employer]Pad[employer] Tech: JJ Baker Diagnosis: Monitoring Service: Preventice Reason for Test: I48.91: Unspecified atrial fibrillation Monitor Used: Body Guardian Heart (MCT) ??[id number] Enrollment Period: Mar 18 - Apr 11, 2023 Hook-Up Tech comments: The device was applied by the microelectronics technician on this note. The patient was [...] The full scanned/data report is available in [employer]. labeled MONITOR STRIPS PDF . This study [...] test: 03/18/2023 Type of Test: Event Monitor ([facility]) [facility] #: [id number] Location: [facility] Heart and Vascular : 1940 Age: 82 Sex: M Ref Physician(s): RODOLFO PETERS MD Interpreted by: Evaristo Nunez MD Hook-Up Tech: Mary Jo Esquivel RMA Diagnosis: Monitoring Service: Preventice Reason for Test: I48.91: Unspecified atrial fibrillation Monitor Used: Body Guardian Heart (VendRx) [id number] Enrollment Period: Mar 18 - Apr 11, 2023 [employer]Pad[employer] comments: The device was applied by the microelectronics technician on this note. The patient was [...] The full scanned/data report is available in [facility]. labeled MONITOR STRIPS PDF . This study was interpreted by Evaristo Nunez MD Confirmed on 04/19/2023 - 17:41:03 by Evaristo Nunez MD Summary of Transmitted Events: # Date Time HR Symptoms/Rhythm 03/28/23 01:05 137.0 Auto Trigger Sinus Rhythm w/Run of V-Tach (4 Beats)/1st Degree AV Blo 03/27/23 22:20 67.0 Passed Out Sinus Rhythm w/1st Degree AV Block/PVCs (1 in 1 min) 14 03/27/23 18:33 79.0 None Reported Sinus Rhythm w/1st Degree AV Block/PVCs (1 in 1 min)/PAC 13 03/26/23 13:17 101.0 Auto Trigger Sinus Tachycardia, Sinus Bradycardia w/IVCD/Couplet PVCs 12 03/26/23 00:05 121.0 Auto Trigger Sinus Arrhythmia [...] have personally reviewed and interpreted this study. Rodolfo Peters MD CV CARDIAC SERVICES PROCEDURES F inal Result documented in this encounter Visit Diagnoses Diagnosis Abnormal EKG Nonspecific abnormal electrocardiogram (ECG) (EKG) Ventricular trigeminy documented in this encounter Care Teams Mechanical Product Design Engineer Relationship Specialty Start Date End Date Kraig Ching MD [address] [place] [address] PCP - General 07/10/16 Gautam Cope MD [address] [place] [address] Medical Oncologist/Security And Privacy Consultant Medical Oncology 08/18/18 Tramaine Roe MD [address] [facility] [address] [place] [address] Referring Physician Urology 08/18/18 Sukhwinder Uribe MD [address] [facility] [address] [place] [address] Consulting Physician Urology 08/18/18 Shay Guillermo MD [address] [facility] [address] [place] [address] Referring Physician Urology 08/18/18 Marsha Landis, RN Registered Nurse 11/17/18 documented as of this encounter
--- OUTSIDE RECORDS SUMMARY | 2024-03-31 04:54 | XMS_ITS | Encounter Summary ---
Author Organization [facility] Address [address] [place] [address] Phone Care Team Providers Care Correspondence Coordinator Name Role Phone Kraig Ching MD Primary Care Provider [phone] Gautam Cope MD Unavailable Tramaine Roe MD Unavailable [phone] Sukhwinder Uribe MD Unavailable [phone] Shay Guillermo MD Unavailable [phone] Marsha Landis RN Unavailable Unavailab le Encounter Details Date Type Department Care Team (Late st Contact Info) Description 02/19/2023 Telephone [facility] Ophthalmology [address] [facility] [address] [place] [address] Janice Goldman Social History Tobacco Use Types [...] on file 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 DOS 02/17/23. Pt was told to go to the E/R. Pt has cancelled his surgery scheduled for 03/15, per cpap dept, when they called to assess him, again. TY DISTRICT CUSTOMS DIRECTOR documented in this encounter Plan of Treatment [...] Chronic Care Management No change(03/23 1:47 PM DEPUTY DISTRICT CUSTOMS DIRECTOR) No Ingrid Oden RN Note: Problem: Chronic Pain Goals: 1. Minimize further functional decline 2. Maximize quality of life 3. Control pain Strategies: - Activity/exercise program recommendation - Conservative stepwise pain medicine strategy with multi-disciplinary approach - Recommend healthy lifestyle strategies and compensatory methods as needed documented as of this encounter Visit Diagnoses Not on filedocumented in this encounter Care Teams Correspondence Coordinator Relationship Specialty Start Date End Date Kraig Ching MD [address] [place] [address] PCP - General 07/10/16 Gautam Cope MD [address] [facility] [address] [place] [address] Medical Oncologist/Commercial Real Estate Attorney Medical Oncology 08/18/18 Tramaine Roe MD [address] [place] [address] Referring Physician Urology 08/18/18 Sukhwinder Uribe MD [address] [place] [address] Consulting Physician Urology 08/18/18 Shay Guillermo MD [address] [facility] [address] [place] [address] Referring Physician Urology 08/18/18 Marsha Landis RN Registered Nurse 11/17/18 documented as of this encounter
--- OUTSIDE RECORDS SUMMARY | 2024-03-31 04:54 | XMS_ITS | Encounter Summary ---
Author Organization [facility] Address [address] [place] [address] Phone Care Team Providers Care Power Generation Plant Operator Name Role Phone Kraig Ching MD Primary Care Provider [phone] Gautam Cope MD Unavailable Tramaine Roe MD Unavailable [phone] Sukhwinder Uribe MD Unavailable [phone] Shay Guillermo MD Unavailable [phone] Marsha Landis RN Unavailable Unavailab le Encounter Details Date Type Department Care Team (Late st Contact Info) Description 11/18/2022 Orders Only [facility] Oncology [address] [facility] [address] 7th [place] [address] [place] [address] Gautam Cope MD [address] [facility] [address] [place] [address] Social History Tobacco Use Types Packs/Day Years [...] on file 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 TOPPER PRESS OPERATOR Gender Identity Not on file Sexual [...] Chronic Care Management No change(03/23 1:47 PM TOPPER PRESS OPERATOR) No Ingrid Oden, RN Note: Problem: Chronic Pain Goals: 1. Minimize further functional decline 2. Maximize quality of life 3. Control pain Strategies: - Activity/exercise program recommendation - Conservative stepwise pain medicine strategy with multi-disciplinary approach - Recommend healthy lifestyle strategies and compensatory methods as needed documented as of this encounter Visit Diagnoses Not on filedocumented in this encounter Care Teams Power Generation Plant Operator Relationship Specialty Start Date End Date Kraig Ching MD [address] [place] [address] PCP - General 07/10/16 Gautam Cope MD [address] [place] [address] Medical Oncologist/Oil Well Fishing Tool Technician Medical Oncology 08/18/18 Tramaine Roe MD [address] [place] [address] Referring Physician Urology 08/18/18 Sukhwinder Uribe MD [address] [place] [address] Consulting Physician Urology 08/18/18 Shay Guillermo MD [address] [place] [address] Referring Physician Urology 08/18/18 Marsha Landis, RN Registered Nurse 11/17/18 documented as of this encounter
--- OUTSIDE RECORDS SUMMARY | 2024-03-31 04:54 | XMS_ITS | Encounter Summary ---
Author Organization [facility] Healthcare Address [address] [place] [address] Care Team Providers Care Chief Customer Officer Name Role Phone Kraig Ching MD Primary Care Provider [phone] Gautam Cope MD Unavailable Tramaine Roe MD Unavailable [phone] Sukhwinder Uribe MD Unavailable Shay Guillermo MD Unavailable [phone] Marsha Landis RN Unavailable Unavailab le Reason for Referral * Cardiology (Routine) - Closed Specialty Diagnoses / Procedures Referred By Saleem narvaez Referred To Contact Diagnoses Abnormal EKG Systolic murmur Procedures ECG 12 lead Mary Ellen Stone NP [address] [address] Phone: tel: fax: [facility] [address] [place] [address] Referral ID Status Reason Start Date Expiration Date Visits Re quested Visits Authorized [id number] Closed 02/18/2023 03/19/2024 1 1 ER LAMPARA NET Reason for Visit * Auth/Cert (Routine) Specialty Diagnoses / Procedures Referred By Saleem narvaez Referred To Contact Diagnoses 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] Procedures TX XCAPSL CTRC RMVL INSJ IO LENS PROSTH W/O ECP EXTRACTION CATARACT - PHACOEMULSIFICATION AND LENS IMPLANT Referral ID Status Reason Start Date Expiration Date Visits Re quested Visits Authorized [id number] 1 1 Encounter Details Date Type Department Care Team (Latest Contact Info) Description 02/18/2023 11:56 AM FISHER LAMPARA NET - 02/18/2023 11:59 PM FISHER LAMPARA NET Hospital Encounter [facility] [address] [place] [address] Abnormal EKG; Systolic murmur Discharge Disposition: Discharge to home or self [...] on file 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 FISHER LAMPARA NET Gender Identity Not on file Sexual Orientation [...] disease) stage 3, GFR 30-59 ml/min (HCC) TAKE 1 TABLET(12.5 MG) BY MOUTH TWICE DAILY WITH MEALS 180 tablet 01/11/2023 4 chlorthalidone 25 mg tablet Take 1 tablet (25 mg total) by mouth daily 90 tablet 3 10/02/2022 4 dorzolamide-gilbert loL (COSOPT) 22.3-6.8 mg/mL ophthalmic solution Administer 1 drop into both eyes 2 (two) times a day 10 mL 12/08/2022 4 insulin aspart (NovoLOG) 100 unit/mL (3 mL) pen for injection ADMINISTER 8 UNITS UNDER THE SKIN THREE TIMES DAILY BEFORE MEALS 3 mL 04/10/2022 4 Januvia 25 mg tabletIndication s:Type 2 diabetes mellitus with stage 3 chronic kidney disease, without long-term current use of insulin (HCC) TAKE 1 TABLET BY MOUTH DAILY 30 tablet 12/08/2022 4 ketorolac (ACULAR) 0.5 % ophthalmic solution Instill one drop into surgical eye three time daily starting two days pre op 5 mL 1 12/08/2022 4 LANTUS 100 unit/mL (3 mL) pen for injection ADMINISTER 28 UNITS UNDER THE SKIN DAILY 6 mL 2 02/11/2023 3 lisinopriL (PRINIVIL,ZESTRI L) 20 mg tablet Take [...] monitor diabetes and kidney status, etc. [facility] Chronic Pain Care Plan Chronic Care Management No change(03/23 1:47 PM FISHER LAMPARA NET) No Ingrid Oden, RN Note: Problem: Chronic Pain Goals: 1. Minimize further functional decline 2. Maximize quality of life 3. Control pain Strategies: - Activity/exercise program recommendation - Conservative stepwise pain medicine strategy with multi-disciplinary approach - Recommend healthy lifestyle strategies and compensatory methods as needed documented as of this encounter Procedures Procedure Name Priority Date/Time Associated Diagnosis Comments ECG 12-LEAD Routine 02/18/2023 12:10 PM FISHER LAMPARA NET Abnormal EKG Systolic murmur documented in this encounter Results * ECG 12 lead (02/18/2023 12:10 PM FISHER LAMPARA NET) Ventricular Rate EKG/Min 67 BPM [facility] Atrial Rate 67 BPM [facility] TX-Interval (MSEC) 240 ms [facility] QRS-Interval (MSEC) 86 ms [facility] QT-Interval (MSEC) 412 ms [facility] QTc 435 ms [facility] P Gary 10 degrees [facility] R Gary 18 degrees [facility] T Gary 85 degrees [facility] Diagnosis Sinus rhythm with sinus arrhythmia with 1st degree A-V block with occasional Premature ventricular complexes Nonspecific T wave abnormality Early R wave progression Abnormal ECG No previous ECGs available Confirmed by TOO DICKENS M.D ([id number]) on 02/25/2023 1:44:07 PM [facility] 02/18/2023 12:1 0 PM FISHER LAMPARA NET 02/25/2023 1:44 PM FISHER LAMPARA NET us Faustinobenny Chase KILN WORKER ECG ORDERABLES Final Result [facility] documented in this encounter Visit Diagnoses Diagnosis Abnormal EKG Nonspecific abnormal electrocardiogram (ECG) (EKG) Systolic murmur Undiagnosed cardiac murmurs documented in this encounter Care Teams Chief Customer Officer Relationship Specialty Start Date End Date Kraig Ching MD [address] [place] [address] PCP - General 07/10/16 Gautam Cope MD [address] [place] [address] Medical Oncologist/Geotechnical Engineer Medical Oncology 08/18/18 Tramaine Roe MD [address] [place] [address] Referring Physician Urology 08/18/18 Sukhwinder Uribe MD [address] [place] [address] Consulting Physician Urology 08/18/18 Shay Guillermo MD [address] [place] [address] Referring Physician Urology 08/18/18 Marsha Landis, RN Registered Nurse 11/17/18 documented as of this encounter
--- OUTSIDE RECORDS SUMMARY | 2024-03-31 04:54 | XMS_ITS | Encounter Summary ---
Author Organization [facility] Healthcare Address [address] [place] [address] Care Team Providers Care Ink Blender Name Role Phone Kraig Ching MD Primary Care Provider [phone] Gautam Cope MD Unavailable Tramaine Roe MD Unavailable [phone] Sukhwinder Uribe MD Unavailable [phone] Shay Guillermo MD Unavailable [phone] Marsha Landis RN Unavailable Unavailab le Encounter Details Date Type Department Care Team (Late st Contact Info) Description 03/18/2023 4:50 PM CONCERT OR LECTURE HALL MANAGER Lab [facility] Advanced Medicine [facility] Advanced [facility] ([facility]) [address] [place] [address] [id number] Abnormal EKG Social History Tobacco Use Types Packs/Day Years Used Date Smoking Tobacco: Former Cigarettes 0.3 52 1 8 - 2009 Smokeless Tobacco: Never Comments:Smoking History [...] on file 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 CONCERT OR LECTURE HALL MANAGER Gender Identity Not on file Sexual [...] Chronic Care Management No change(03/23 1:47 PM CONCERT OR LECTURE HALL MANAGER) No Ingrid Oden, SHEA Note: Problem: Chronic Pain Goals: 1. Minimize further functional decline 2. Maximize quality of life 3. Control pain Strategies: - Activity/exercise program recommendation - Conservative stepwise pain medicine strategy with multi-disciplinary approach - Recommend healthy lifestyle strategies and compensatory methods as needed documented as of this encounter Procedures Procedure Name Priority Date/Time Associated Diagnosis Comments EGFR Routine 03/18/2023 4:15 PM CONCERT OR LECTURE HALL MANAGER Abnormal EKG MAGNESIUM Routine 03/18/2023 4:15 PM CONCERT OR LECTURE HALL MANAGER Abnormal EKG BASIC METABOLIC PANEL Routine 03/18/2023 4:15 PM CONCERT OR LECTURE HALL MANAGER Abnormal EKG documented in this encounter Results * (ABNORMAL) eGFR (03/18/2023 4:15 PM CONCERT OR LECTURE HALL MANAGER) eGFR 31(L) >=60 mL/min/1. 73 m2 [facility] Comment: [...] interpretive data was last reviewed 2021. Blood 03/18/2023 4:15 PM CONCERT OR LECTURE HALL MANAGER 03/18/2023 4:58 PM CONCERT OR LECTURE HALL MANAGER us Alexandro Albert MD LAB BLOOD ORDERABLES Final Resul t Performing Organization Address City/[facility] Co de Phone Number [facility] [place] [employer] [place] [address] * Magnesium (03/18/2023 4:15 PM CONCERT OR LECTURE HALL MANAGER) Magnesium 1.7 1.4 - 2.5 mg/dL [facility] Blood 03/18/2023 4:15 PM CONCERT OR LECTURE HALL MANAGER 03/18/2023 4:45 PM CONCERT OR LECTURE HALL MANAGER Alexandro Albert MD LAB BLOOD ORDERABLES Final Resul t Performing Organization Address [facility] de Phone Number [facility] [address] * (ABNORMAL) Basic metabolic panel (03/18/2023 4:15 PM CONCERT OR LECTURE HALL MANAGER) Sodium 144 135 - 145 mmol/L [facility] Potassium, pl 4.5 3.3 - 4.9 mmol/L [facility] Chloride 104 97 - 110 mmol/L [facility] CO2 28 22 - 32 mmol/L [facility] Anion gap 12 2 - 15 mmol/L [facility] BUN 36(H) 6 - 25 mg/dL [facility] Creatinine 2.08(H) 0.80 - 1.30 mg/dL [facility] Glucose 137 70 - 199 mg/dL [facility] [...] 2022. Calcium 9.1 8.5 - 10.3 mg/dL [facility] Blood 03/18/2023 4:15 PM CONCERT OR LECTURE HALL MANAGER 03/18/2023 4:45 PM CONCERT OR LECTURE HALL MANAGER us Alexandro Albert MD LAB BLOOD ORDERABLES Final Resul t [facility] [place] [address] documented in this encounter Visit Diagnoses Diagnosis Abnormal EKG Nonspecific abnormal electrocardiogram (ECG) (EKG) documented in this encounter Care Teams Ink Blender Relationship Specialty Start Date End Date Kraig Ching MD [address] [place] [address] PCP - General 07/10/16 Gautam Cope MD [address] [place] [address] Medical Oncologist/Business Relationship Manager Medical Oncology 08/18/18 Tramaine Roe MD [address] [place] [address] Referring Physician Urology 08/18/18 Sukhwinder Uribe MD [address] [place] [address] Consulting Physician Urology 08/18/18 Shay Guillermo MD [address] [place] [address] Referring Physician Urology 08/18/18 Marsha Landis, RN Registered Nurse 11/17/18 documented as of this encounter
--- OUTSIDE RECORDS SUMMARY | 2024-03-31 04:54 | XMS_ITS | Encounter Summary ---
Author Organization [facility] Address [address] [place] [address] Phone Care Team Providers Care Process Validation Engineer Name Role Phone Kraig Ching MD Primary Care Provider [phone] Gautam Cope MD Unavailable Tramaine Roe MD Unavailable [phone] Skuhwinder Uribe MD Unavailable [phone] Shay Guillermo MD Unavailable [phone] Marsha Landis RN Unavailable Unavailab le Encounter Details Date Type Department Care Team (Late st Contact Info) Description 11/12/2022 Telephone [facility] Ophthalmology [address] [facility] [address] [place] [address] Janice Goldman Social History Tobacco Use Types [...] on file 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 COMMERCIAL PORTFOLIO MANAGER Gender Identity Not on file Sexual Orientation Not on file documented as of this encounter Miscellaneous Notes * Telephone Encounter - Janice Goldman - 11/12/2022 10:05 AM CDT Ascan scheduled. * Telephone Encounter - Janice Goldman - 11/12/2022 10:05 AM CDT ----- Message from Higinio Connolly MD sent at 11/10/2022 12:54 PM CDT ----- Please contact pt to schedule cataract surgery both eyes (OU) (left eye (OS) first). No special instructions for now. documented in this encounter Plan of Treatment [...] Chronic Care Management No change(03/23 1:47 PM COMMERCIAL PORTFOLIO MANAGER) No Ingrid Oden, SHEA Note: Problem: Chronic Pain Goals: 1. Minimize further functional decline 2. Maximize quality of life 3. Control pain Strategies: - Activity/exercise program recommendation - Conservative stepwise pain medicine strategy with multi-disciplinary approach - Recommend healthy lifestyle strategies and compensatory methods as needed documented as of this encounter Visit Diagnoses Not on filedocumented in this encounter Care Teams Process Validation Engineer Relationship Specialty Start Date End Date Kraig Ching MD [address] [facility] [address] [place] [address] PCP - General 07/10/16 Gautam Cope MD [address] [facility] [address] [place] [address] Medical Oncologist/Presales Engineer Medical Oncology 08/18/18 Tramaine Roe MD [address] [facility] [address] [place] [address] Referring Physician Urology 08/18/18 Sukhwinder Uribe MD [address] [facility] [address] [place] [address] Consulting Physician Urology 08/18/18 Shay Guillermo MD [address] [facility] [address] [place] [address] Referring Physician Urology 08/18/18 Marsha Landis, RN Registered Nurse 11/17/18 documented as of this encounter
--- OUTSIDE RECORDS SUMMARY | 2024-03-31 04:54 | XMS_ITS | Encounter Summary ---
Author Organization [facility] Address [address] [place] [address] Phone Care Team Providers Care Fitter Type Bar And Segment Name Role Phone Kraig Ching MD Primary Care Provider [phone] Gautam Cope MD Unavailable Tramaine Roe MD Unavailable [phone] Sukhwinder Uribe MD Unavailable [phone] Shay Guillermo MD Unavailable [phone] Marsha Landis RN Unavailable Unavailab le Reason for Referral * Diagnostic Imaging (Routine) - Closed Specialty Diagnoses / Procedures Referred By Saleem t Referred To Contact Diagnoses Combined forms of age-related cataract of both eyes Procedures IOL Biometry - OU - Both Eyes Higinio Connolly MD [address] [place] [address] Phone: tel: fax: [facility] (All Locations) Referral ID Status Reason Start Date Expiration Date Visits Re quested Visits Authorized [id number] Closed 12/04/2022 01/03/2024 1 1 Encounter Details Date Type Department Care Team (Late st Contact Info) Description 12/08/2022 2:30 PM CDT Office Visit [facility] [address] [facility] [facility] [address] [place] [address] Higinio Connolly MD [address] [facility] [address] [place] [address] Combined forms of age-related cataract of both eyes (Primary Dx) Social History [...] on file 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 ERP PM Gender Identity Not on file Sexual Orientation Not on file documented as of this encounter Ordered Prescriptions Prescription Sig Dispense Quantity Refills Last Filled Start Date End Date prednisoLONE acetate (PRED FORTE) 1 % ophthalmic suspension Instill 1 drop into surgical eye three times daily starting after surgery 5 mL 1 12/08/2022 4 moxifloxacin (VIGAMOX) 0.5 % ophthalmic solution Instill 1 drop into surgical eye three times daily starting two days before surgery 3 mL 1 12/08/2022 4 ketorolac (ACULAR) 0.5 % ophthalmic solution Instill one drop into surgical eye three time daily starting two days pre op 5 mL 1 12/08/2022 4 dorzolamide-timolo L (COSOPT) 22.3-6.8 mg/mL ophthalmic solution Administer 1 drop into both eyes 2 (two) times a day 10 mL 11 12/08/2022 4 documented in this encounter Progress Notes * Higinio Connolly MD - 12/08/2022 2:30 PM CDT Patient here for pre-op exam and testing for cataract surgery Phaco/IOL OU to be scheduled in near future (OS first) LenStar, IOL Master, and Topography done Rx's sent for Moxifloxacin, Ketorolac 0.5%, and Prednisolone 1% drops Consent signed Discussed refractive intraocular lens options for correction of astigmatism and presbyopia. Patienthas chosen CNA0T0 with plano target OU. IOPs still elevated today - switch Timolol to Cosopt OU BID - Rx sent and side effects discussed. Continue Latanoprost OU qhs. * Janice Goldman - 12/08/2022 2:30 PM CDT 12/18- Mailbox is full. documented in this encounter Plan of Treatment [...] to monitor diabetes and kidney status, etc. [facility] Chronic Pain Care Plan Chronic Care Management No change(03/23 1:47 PM ERP PM) No Ingrid Oden, RN Note: Problem: Chronic Pain Goals: 1. Minimize further functional decline 2. Maximize quality of life 3. Control pain Strategies: - Activity/exercise program recommendation - Conservative stepwise pain medicine strategy with multi-disciplinary approach - Recommend healthy lifestyle strategies and compensatory methods as needed documented as of this encounter Procedures Procedure Name Priority Date/Time Associated Diagnosis Comments IOL BIOMETRY - OU - BOTH EYES Routine 12/08/2022 3:40 PM CDT Combined forms of age-related cataract of both eyes documented in this encounter Results * IOL Biometry - OU - Both Eyes (12/08/2022 3:40 PM CDT) Anatomical Region Laterality Modality Head Ophthalmic Axial Measurements Narrative 12/08/2022 3:40 PM CDT Right Eye Lens style: CNA0T0. Left Eye Lens style: CNA0T0. Lens power: +20.0 D. Target refraction: -0.50. Formula used: Mian II. us Higinio Connolly MD OPHTH ULTRASOUND Final Resu lt documented in this encounter Visit Diagnoses Diagnosis Combined forms of age-related cataract of both eyes- Primary documented in this encounter Discontinued Medications Medication Sig Discontinue Reason Start Date End Da te timolol (TIMOPTIC-XE) 0.5 % ophthalmic gel-forming Alternate therapy 06/16/2021 12/08/2022 documented as of this encounter Eye Exam Tonometry (Applanation, 3:33 PM) Right eye Left eye Pressure 20 28 Pupils Pupils Right eye PERRL Left eye PERRL Care Teams Fitter Type Bar And Segment Relationship Specialty Start Date End Date Kraig Ching MD [address] [place] [address] PCP - General 07/10/16 Gautam Cope MD [address] [place] [address] Medical Oncologist/Four Slide Operator Medical Oncology 08/18/18 Tramaine Roe MD [address] [place] [address] Referring Physician Urology 08/18/18 Sukhwinder Uribe MD [address] [place] [address] Consulting Physician Urology 08/18/18 Shay Guillermo MD [address] [place] [address] Referring Physician Urology 08/18/18 Marsha Landis, RN Registered Nurse 11/17/18 documented as of this encounter
--- OUTSIDE RECORDS SUMMARY | 2024-03-31 04:54 | XMS_ITS | Encounter Summary ---
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] Procedures WI XCAPSL CTRC RMVL INSJ IO LENS PROSTH W/O ECP EXTRACTION CATARACT - PHACOEMULSIFICATION AND LENS IMPLANT Referral ID Status Reason Start Date Expiration Date Visits Re quested Visits Authorized [id number] 1 1 Encounter Details Date Type Department Care Team (Latest Contact Info) Description 02/17/2023 8:15 AM DRAMA THERAPIST - 02/18/2023 12:00 PM [facility] Hospital Encounter [facility] Surgery at [facility] [address] [place] [address] Higinio Connolly MD [address] [facility] [address] [place] [address] Encounter for preadmission testing (Primary Dx) Discharge Disposition: Discharge to home [...] on file 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 DRAMA THERAPIST Gender Identity Not on file Sexual Orientation Not on file documented as of this encounter Last Filed Vital Signs Vital Sign Reading Time Taken Comments Blood Pressure - - Pulse - - Temperature 36.1 ??C (97 ??F) 02/17/2023 8:37 AM DRAMA THERAPIST Respiratory Rate - - Oxygen Saturation - - Inhaled Oxygen Concentration - - Weight 98.7 kg (217 lb 8 oz) 01/26/2023 2:45 PM CDT Height 180.3 cm (5' 11 ) 01/26/2023 2:45 PM CDT Body Mass Index 30.34 01/26/2023 2:45 PM CDT documented in this encounter Medications at Time [...] mL 11 04/10/2022 4 Januvia 25 mg tabletIndication s:Type [...] s Discharge to home or self care documented in this encounter H&P Notes * Higinio Connolly MD - 02/06/2023 9:03 AM CDT This patient is a 82 y/o WM [...] cataract OS Plan: Proceed with phaco/IOL OS documented in this encounter Miscellaneous Notes * Incidental Note - Debbie Raymond MD - 02/17/2023 9:40 AM CST Patient presents to [facility] for cataract procedure. His telemetry shows frequent PVCs and occasional ventricular bigeminy. 12 lead EKG obtained and shows atrial fibrillation (known hx) with frequent PVCs. He also has a harsh systolic murmur on physical exam. He is asymptomatic at present however given concern for structural/electrical pathology, cataract procedure was cancelled. Per my review last TTE was 2018. I advised patient and his to call PCP office today as he should be seen by PCP/excavator operator for further workup as soon as possible. Should he develop any symptoms of lightheadedness, shortness of breath, or chest pain, they know to go to the ED. Debbie Raymond MD Anesthesiology A THERAPIST * Pre-Procedure Instructions - Vale Campbell NP - 02/04/2023 2:46 PM CDT [facility] Location: [facility] The night before your surgery: * Do not eat anything after midnight the night before your procedure. and * Do not smoke or use tobacco products after midnight the night before surgery. It is best to stop smoking now to improve your health. The morning of your surgery: * You [...] going to be admitted after surgery at [facility], COVID testing may be performed on the day of surgery, even if you are up to date on your COVID-19 vaccine. * If having surgery at [facility], you may want to bring a credit card if you want to use our Mobile Pharmacy for your discharge medications. Mobile pharmacy is not available at [facility], the [facility], or the [place] [facility]. Outpatient Surgery: * You must have a [...] be sure to read the Medicine Instructions. Instructions For Your Medications: Pre-Surgery Instructions: Medication Instructions abiraterone (ZYTIGA) 250 mg tablet Take night before surgery as usual albuterol HFA (PROVENTIL HFA,VENTOLIN HFA,PROAIR HFA) 90 mcg/actuation inhaler Take on day of surgery if needed aspirin 81 mg enteric coated tablet Surgeon's office will instruct you on this medication. carvediloL (COREG) 12.5 mg tablet Take morning of surgery chlorthalidone 25 mg tablet Don't take on day of surgery dorzolamide-timoloL (COSOPT) 22.3-6.8 mg/mL ophthalmic solution Surgeon's office will instruct you on this medication. insulin aspart (NovoLOG) 100 unit/mL (3 mL) pen for injection Don't take on day of surgery Januvia 25 mg tablet Take night before surgery as usual ketorolac (ACULAR) 0.5 % ophthalmic solution Surgeon's office will instruct you on this medication. LANTUS 100 unit/mL (3 mL) pen for injection Take 22 units SQ (75-80% of usual dose) night before ofsurgery lisinopriL (PRINIVIL,ZESTRIL) 20 mg tablet Take morning of surgery moxifloxacin (VIGAMOX) 0.5 % ophthalmic solution Surgeon's office will instruct you on this medication. oxyCODONE (ROXICODONE) 5 mg immediate release tablet Take on day of surgery if needed pantoprazole DR (PROTONIX) 40 mg EC tablet Take morning of surgery pravastatin (PRAVACHOL) 20 mg tablet Take night before surgery as usual prednisoLONE acetate (PRED FORTE) 1 % ophthalmic suspension Surgeon's office will instruct you on this medication. predniSONE (DELTASONE) 5 mg tablet Take morning of surgery PreviDent 5000 Plus 1.1 % cream Don't take on day of surgery Accu-Chek Fastclix Lancet [facility] [facility] [place] diagnostic (Accu-Chek Guide test strips) strip pen needle, diabetic (BD Ultra-Fine Short Pen Needle) 31 gauge x 5/16 needle Your surgeon will tell you IF YOU SHOULD STOP the following medications and WHEN TO STOP taking them. Do not stop taking them on your own without being told to do so: ASPIRIN General Instructions For Medications: * Stop all [...] with COVID-19. You test positive for COVID-19. * Perioperative Nursing Note - Valencia Whitaker RN - 01/26/2023 2:49 PM CDT [facility] Perioperative Nursing Note Telephone Preoperative Evaluation (CAM-SC) - TELEPHONE ONLY, NO PHYSICAL EXAM Date: 01/26/23 This assessment was completed with the patient. Vitals: 01/26/23 1445 Weight: 98.7 kg (217 lb 8 oz) Height: 180.3 cm (5' 11 ) CHEST CIRCUMFERENCE: NA Social History Tobacco Use Smoking Status Former Packs/day: 0.25 Years: 45.00 Additional pack years: 0.00 Total pack years: 11.25 Types: Cigarettes Start date: 1957 Quit date: 2010 Years since quittin.8 Smokeless Tobacco Never Tobacco Comments Smoking History Packs/day: 10 Cigarettes Substance and Sexual Activity Drug Use Yes Frequency: 1.0 times per week Types: Marijuana Alcohol Use Q1: How often do you have a drink containing alcohol?: 2-4 times a month Q2: How many drinks containing alcohol do you have on a typical day when you are drinking?: 1 or 2 Q3: How often do you have six or more drinks on one occasion?: Less than monthly Outpatient Medications Marked as Taking for the 02/17/23 encounter (Hospital Encounter) Medication Sig Dispense Refill [...] (81 mg total) by mouth every morning carvediloL (COREG) 12.5 mg tablet TAKE 1 TABLET(12.5 MG) BY MOUTH TWICE DAILY WITH MEALS (Patient taking differently: Take 1 tablet (12.5 mg total) by mouth 2 (two) times a day with meals) 180 tablet0 chlorthalidone 25 mg tablet Take 1 tablet [...] daywith meals Sliding scale) 3 mL 11 Januvia 25 mg tablet TAKE [...] two days pre op) 5 mL 1 LANTUS 100 unit/mL (3 mL) pen for injection ADMINISTER 28 UNITS UNDER THE SKIN DAILY (Patient taking differently: Inject 28 Units under the skin nightly ADMINISTER 28 UNITS UNDER THE SKIN DAILY) 6 mL2 lisinopriL (PRINIVIL,ZESTRIL) 20 mg tablet Take 1.5 [...] 1.1 % cream Apply topically nightly Implants No active implants to display in this view. SKIN Piercings Remaining: No Wound (LDAs) Type of Wound (LDA): (denies) SCREENINGS Brit index score: 80 NUTRITION PATIENT CARE PLANNING Advance Directives (For Healthcare) Have you reviewed your Advance Directive and is it valid for this stay?: Not applicable Advance Directive: Patient does not have advance directive, Patient refused information Information Provided on Healthcare Directives: No Pre-existing DNR/DNI Order: No Patient Requests Assistance: No Communication/Hospital Educator Needs Communication Barriers: Visual Communication Needs: Glasses Assistive Devices/DME: Eyeglasses, Walker (walker is a rollator) Hearing - Right Ear: Functional Hearing - Left Ear: Functional Discharge Planning Type of Residence: Private residence Living Arrangements: Spouse/significant other Support Systems: Spouse/significant other Assistance Needed: His will drive him and help care for him after surgery. Patient expects to be discharged to:: Private residence [facility]IEF STEWARD/STEWARDESS NO ADDITIONAL COMMENTS/ FOLLOW UP * Pre-Procedure Instructions - Valencia Whitaker RN - 01/26/2023 2:48 PM CDT [facility] ([facility]) [...] remove nail coverings, artificial nails and nail botswanan prior to the day of surgery. You should leave your valuables and any jewelry at home. No metal or piercings are allowed in the operating room. You should bring your insurance card, a photo ID (example: Crepe Machine Operator's License) and a method of payment for [...] Chart. If you are having surgery at [facility], please arrive on the day [...] Remove nail coverings, artificial nails and nail botswanan. Place clean linens on your bed the night before surgery. Shaving: You may shave your face, legs and underarms during your evening shower. Avoid shaving on the day of surgery. . Travel/Exposure Screening: Travel Screening Have you traveled [...] questions, please call the CPAP Staff at [phone], Wednesday-Wednesday 8am-4:30pm. All patients should read the below section: COVID 19 Updates & Visitor Policy: Please access [email or web address] for the most updated information. Information on [facility] & the [facility]: Please view [email or web address] (Patient & Visitor Information) for additional details regarding Advanced Directive forms, AWARE, directions, parking information, lodging, Internet access, dining and more. Information on [facility] or [facility] [place] ([facility]): Please view [email or web address] (Patient and Visitor Information) for parking/directions and more. For MyChart information, to activate account or password recovery, please go to [email or web address] or call [phone] (toll-free: [phone]), Wed- Wednesday 8am-5pm. Information for Suicide Prevention: National Suicide Prevention Lifeline (7-208- 109-KZIG (4054)). Surgery Times: For patients having surgery @ [facility] or [facility] [place] ([facility]), if your surgeon's office has not notified you of your surgery time by NOON THE BUSINESS DAY BEFORE your surgery, please call [phone] and ask for your surgeon's office Dr. Connolly. documented in this encounter Plan of Treatment [...] Chronic Care Management No change(03/23 1:47 PM DRAMA THERAPIST) No Ingrid Oden, SHEA Note: Problem: Chronic Pain Goals: 1. Minimize further functional decline 2. Maximize quality of life 3. Control pain Strategies: - Activity/exercise program recommendation - Conservative stepwise pain medicine strategy with multi-disciplinary approach - Recommend healthy lifestyle strategies and compensatory methods as needed documented as of this encounter Visit Diagnoses Diagnosis Encounter for preadmission testing documented in this [...] For priming tubing and/or flushing, Starting on Wed02/17/23 at 0836, Pre-Op, 0-250 ml/hr to flush line after IV infusions when no maintenance IV ordered. Infuse 30mL at the same rate as the secondary infusion. Run as primary IV, not intended for KVO.Indications:Encounter for preadmission testing dilating cocktail ophthalmic solution 0.3 mL 0.3 mL, left eye, Once, On Wed02/17/23 at 0915, For 1 dose, Pre-Op/Floor, Ingredients per 0.3 mL Lidocaine 2% jelly 0.214 mL Phenylephrine 10% ophth drops 0.021 mL Cyclopentolate 1% ophth drops 0.021 mL Tropicamide 1% ophth drops 0.021 mL Ketorolac 0.5% ophth drops 0.021 mL, Indications: Mydriasis During Ocular SurgeryIndications:Mydriasis During Ocular Surgery Given 02/17/2023 8:48 AM DRAMA THERAPIST 0.3 mL Left Eye Lactated Ringer's (LR) infusion 30 mL/hr, intravenous, Continuous, Starting on Wed02/17/23 at 0915, Pre-OpIndications:Encounter for preadmission testing sodium chloride 0.9% flush 0.5-20 mL 0.5-20 mL, intra-catheter, As needed, line care, Starting on Wed02/17/23 at 0836, Pre-Op, Flush volume based on line type and size. Flush before and after each use.Indications:Encounter for preadmission testing documented in this encounter Discontinued Medications Medication Sig Discontinue Reason Start Date End Da te latanoprost (XALATAN) 0.005 % ophthalmic solution Administer 1 drop into both eyes nightly Error 01/26/2023 documented as of this encounter Active and Recently Administered Medications Times are shown in DRAMA THERAPIST. Scheduled Medication Order 02/16/2023 02/17/2023 02/18/2023 BSS Plus-lidocaine 0.375%-EPINEPHrine 0.25 mg (Steffi Kelley) preservative free ophthalmic solution (total volume 1 mL) 1 mL, intracameral LEFT, Once, On Wed02/17/23 at 0915, For 1 dose, Intra-Op, Have available in the OR for surgeon administration in the left eye. 0915 (Due) dilating cocktail ophthalmic solution 0.3 mL (COMPLETED) 0.3 mL, left eye, Once, On Wed02/17/23 at 0915, For 1 dose, Pre-Op/Floor, Ingredients per 0.3 mL Lidocaine 2% jelly 0.214 mL Phenylephrine 10% ophth drops 0.021 mL Cyclopentolate 1% ophth drops 0.021 mL Tropicamide 1% ophth drops 0.021 mL Ketorolac 0.5% ophth drops 0.021 mL, Indications: Mydriasis During Ocular Surgery 0848 (Given - Provider: Anahi Patel RN) lidocaine 1%, BUPivacaine 0.375% preservative free ophthalmic solution (total volume 5 mL) 5 mL, periocular LEFT, Once, On Wed02/17/23 at 0915, For 1 dose, Pre-Op/Floor, RETROBULBAR 0915 (Due) lidocaine 1%, BUPivacaine 0.375% preservative free ophthalmic solution (total volume 5 mL) 5 mL, periocular LEFT, Once, On Wed02/17/23 at 0915, For 1 dose, Pre-Op/Floor, FACIAL 0915 (Due) Continuous Medication Order 02/16/2023 02/17/2023 02/18/2023 Lactated Ringer's (LR) infusion 30 mL/hr, intravenous, Continuous, Starting on Wed02/17/23 at 0915, Pre-Op 0915 (Due) PRN Medication Order 02/16/2023 02/17/2023 02/18/2023 Carrier Fluids for Secondary Infusion - 0.9% Sodium Chloride 30 mL, intravenous, As needed, For priming tubing and/or flushing, Starting on Wed02/17/23 at 0836, Pre-Op, 0-250 ml/hr to flush line after IV infusions when no maintenance IV ordered. Infuse 30mL at the same rate as the secondary infusion. Run as primary IV, not intended for KVO. sodium chloride 0.9% flush 0.5-20 mL 0.5-20 mL, intra-catheter, As needed, line care, Starting on Wed02/17/23 at 0836, Pre-Op, Flush volume based on line type and size. Flush before and after each use. documented in this encounter Orders Medications Ordered That Adiel ht Not Have Been Administered Count Last Ordered Date First Ordered Date BSS Plus-lidocaine 0.375%-EP INEPHrine 0.25 mg (Steffi Mackenzieh) preservative free ophthalmic solution (total volume 1 mL) 1 02/17/2023 Carrier Fluids for Secondary Infusion - 0.9% Sodium Chloride 1 02/17/2023 Lactated Ringer's (LR) infusion 1 lidocaine 1%, BUPivacaine 0. 375% preservative free ophthalmic solution (total volume 5 mL) 2 02/17/2023 sodium chloride 0.9% flush 0.5-20 mL 1 11/2022 documented in this encounter Care Teams Department Chairperson Relationship Specialty Start Date End Date Kraig Ching MD [address] [place] [address] PCP - General 07/10/16 Gautam Cope MD [address] [place] [address] Medical Oncologist/Lopper Medical Oncology 08/18/18 Tramaine Roe MD [address] [place] [address] Referring Physician Urology 08/18/18 Sukhwinder Uribe MD [address] [place] [address] Consulting Physician Urology 08/18/18 Shay Guillermo MD [address] [place] [address] Referring Physician Urology 08/18/18 Marsha Landis, RN Registered Nurse 11/17/18 documented as of this encounter
--- OUTSIDE RECORDS SUMMARY | 2024-03-31 04:54 | XMS_ITS | Encounter Summary ---
Author Organization [facility] Healthcare Address [address] [place] [address] Care Team Providers Care Elevator Examiner Name Role Phone Kraig Ching MD Primary Care Provider [phone] Gautam Cope MD Unavailable Tramaine Roe MD Unavailable [phone] Sukhwinder Uribe MD Unavailable [phone] Shay Guillermo MD Unavailable Marsha Landis RN Unavailable Unavailab le Encounter Details Date Type Department Care Team (Late st Contact Info) Description 03/08/2023 11:45 AM FIBERGLASS LUGGAGE MOLDER Office Visit [facility] [address] [place] [address] [place] [address] Kraig Ching MD [address] [facility] [facility] [address] [place] [address] Essential hypertension (Primary Dx); Type 2 diabetes mellitus with stage 3a chronic kidney disease, with long-term current use of insulin (HCC); Gastroesophageal reflux disease, unspecified whether esophagitis present; Chronic bilateral low back pain with bilateral sciatica; Cataract, left; Allergy to statin medication; Hyperlipidemia, unspecified hyperlipidemia type Social History Tobacco Use Types Packs/Day Years Used Date Smoking Tobacco: Former Cigarettes 0.3 52 1 2009 Smokeless Tobacco: Never Tobacco Cessation:Counseling Given: Not [...] on file 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 FIBERGLASS LUGGAGE MOLDER Gender Identity Not on file Sexual Orientation Not on file documented as of this encounter Last Filed Vital Signs Vital Sign Reading Time Taken Comments Blood Pressure 134/62 03/08/2023 11:15 AM FIBERGLASS LUGGAGE MOLDER Pulse 82 03/08/2023 11:15 AM FIBERGLASS LUGGAGE MOLDER Temperature - - Respiratory Rate 20 03/08/2023 11:15 AM FIBERGLASS LUGGAGE MOLDER Oxygen Saturation 97% 03/08/2023 11:15 AM FIBERGLASS LUGGAGE MOLDER Inhaled Oxygen Concentration - - Weight 98 kg (216 lb) 03/08/2023 11:15 AM FIBERGLASS LUGGAGE MOLDER Height 180.3 cm (5' 11 ) 03/08/2023 11:15 AM FIBERGLASS LUGGAGE MOLDER Body Mass Index 30.13 03/08/2023 11:15 AM FIBERGLASS LUGGAGE MOLDER documented in this encounter Ordered Prescriptions Prescription Sig Dispense Quantity Refills Last Filled Start Date End Date insulin glargine (LANTUS) 100 unit/mL (3 mL) pen for injection ADMINISTER 28 UNITS UNDER THE SKIN DAILY 9 mL 11 03/08/2023 4 documented in this encounter Progress Notes * Kraig Ching MD - 03/08/2023 11:45 AM CST Subjective/Objective Patient ID: David Wei is a 82 y.o. male. Chief Complaint Hypertension HPI 1.HTN. He is prescribed carvedilol,lisimopril and chlorthalidone. 2.Diabetes. He is prescribed Lantus insulin.He reports compliance with oral medications. His [id number] 7.9 on 08/18/22.Diabetes is complicated by hyperlipidemia. He is prescribed pravastatin. He is intolerant of atorvastatin. Diabetes is complciated by CKD. His creatinine was 1.97 on 02/09/23. 3.GERD. GERD symptoms are controlled on pantoprazole. 4.Back Pain. 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 He is set to see Pain Management next month. 5.Cataract. He has a visually significant cataract and is scheduled for cataract surgery. He was seen 02/18/23 for clearance and had an EKG that showed 1st degree AV block. EKG from 04/14/2006 shows sinus rhythm with first degree AV block. He denies palpitations or dizziness. Review of Systems Constitutional: Negative. HENT: Negative for sore throat. Eyes: Negative for visual disturbance. Respiratory: Negative for shortness of breath. Cardiovascular: Negative for chest pain. Gastrointestinal: Negative for abdominal pain. Genitourinary: Negative for hematuria. Musculoskeletal: Positive for back pain. Negative for arthralgias. Skin: Negative for rash. Neurological: Negative for dizziness. Psychiatric/Behavioral: Positive for sleep disturbance. BP 134/62 (BP Location: Right arm, Patient Position: Sitting) Pulse 82 Resp 20 Ht 180.3 cm (5' 11 ) Wt 98 kg (216 lb) SpO2 97% BMI 30.13 kg/m?? Physical Exam Constitutional: Appearance: He is [...] Continue current regimen.Limit nephrotoxins.Reviewed creatinine. Avoid NSAIDS. Orders: - Hemoglobin A1c; Future Gastroesophageal reflux disease, unspecified whether esophagitis present (K21.9) Assessment & Plan: Reviewed dietary modifications. Continue PPI. 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 Continue home PT exercises. Advised using a walker. Cataract, left (H26.9) Assessment & Plan: Agree with cataract surgery. 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 No indication for further testing. Allergy to statin medication (Z88.8) Hyperlipidemia, unspecified hyperlipidemia type (E78.5) - Lipid panel; Future Other orders - insulin glargine (LANTUS) 100 unit/mL (3 mL) pen for injection; ADMINISTER 28 UNITS UNDER THE SKIN DAILY RGLASS LUGGAGE MOLDER documented in this encounter Miscellaneous Notes * Assessment & Plan Note - Karig Ching MD - 03/08/2023 11:40 AM FIBERGLASS LUGGAGE MOLDER Associated Problem(s): Cataract, left (Resolved 05/28/2023) Agree with cataract surgery. 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 No indication for further testing. RGLASS LUGGAGE MOLDER * Assessment & Plan Note - Kraig Ching MD - 03/08/2023 11:17 AM FIBERGLASS LUGGAGE MOLDER Associated Problem(s): Chronic bilateral low back pain with bilateral sciatica Continue oxycodone. Continue home PT exercises. Advised using a walker. RGLASS LUGGAGE MOLDER * Assessment & Plan Note - Kraig Ching MD - 03/08/2023 11:17 AM FIBERGLASS LUGGAGE MOLDER Associated Problem(s): Gastroesophageal reflux disease Reviewed dietary modifications. Continue PPI. RGLASS LUGGAGE MOLDER * Assessment & Plan Note - Kraig Ching MD - 03/08/2023 7:12 AM FIBERGLASS LUGGAGE MOLDER Associated Problem(s): Type 2 diabetes mellitus with stage 3a chronic kidney disease, with long-term current use of insulin (HCC) Continue current regimen.Limit nephrotoxins.Reviewed creatinine. Avoid NSAIDS. RGLASS LUGGAGE MOLDER * Assessment & Plan Note - Kraig Ching MD - 03/08/2023 7:11 AM FIBERGLASS LUGGAGE MOLDER Associated Problem(s): Hypertension, essential Hypertension is controlled. Continue current regimen. RGLASS LUGGAGE MOLDER documented in this encounter Plan of Treatment [...] to monitor diabetes and kidney status, etc. [facility] Chronic Pain Care Plan Chronic Care Management No change(03/23 1:47 PM FIBERGLASS LUGGAGE MOLDER) No Ingrid Oden RN Note: Problem: Chronic Pain Goals: 1. Minimize further functional decline 2. Maximize quality of life 3. Control pain Strategies: - Activity/exercise program recommendation - Conservative stepwise pain medicine strategy with multi-disciplinary approach - Recommend healthy lifestyle strategies and compensatory methods as needed documented as of this encounter Procedures Procedure Name Priority Date/Time Associated Diagnosis Comments HEMOGLOBIN A1C Routine 03/08/2023 11:55 AM FIBERGLASS LUGGAGE MOLDER Type 2 diabetes mellitus with stage 3a chronic kidney disease, with long-term current use of insulin (HCC) LIPID PANEL Routine 03/08/2023 11:55 AM FIBERGLASS LUGGAGE MOLDER Hyperlipidemia, unspecified hyperlipidemia type documented in this encounter Results * (ABNORMAL) Lipid panel (03/08/2023 11:55 AM FIBERGLASS LUGGAGE MOLDER) [facility] Cholesterol 193 30 - 199 mg/dL [facility] Comment: Interpretive Data Ages < or [...] revised on 2017. Triglycerides 250(H) <=149 mg/dL [facility] Comment: Interpretive Data Ages < or [...] revised on 2017. HDL 36(L) >=40 mg/dL [facility] Comment: Interpretive Data Ages < or [...] on 2017. LDL, calculated 107 <=129 mg/dL [facility] Comment: Interpretive Data Ages < or [...] revised on 2017. Non-HDL Cholesterol 157 mg/dL [facility] Comment: Interpretive Data Ages < or = [...] last revised on 2017. Chol/HDL ratio 5 [facility] Blood 03/08/2023 11:5 5 AM FIBERGLASS LUGGAGE MOLDER 03/08/2023 3:48 PM FIBERGLASS LUGGAGE MOLDER us Kraig Ching MD LAB BLOOD ORDERABLES Final Re sult [facility] [place] [address] * (ABNORMAL) Hemoglobin A1c (03/08/2023 11:55 AM FIBERGLASS LUGGAGE MOLDER) Hgb A1C 8.3(H) 4.0 - 5.6 % [facility] Estimated Average Glucose 192 mg/dL [facility] Comment: The ADA recommends reporting an estimated Average Glucose (eAG) with all Hemoglobin A1c results using the equation derived from a study of 507 normal and diabetic adults. ??Minority populations were underrepresented and children were not included. ?? (Diabetes Care 2020; 43(S1): S66-S76). ??The eAG is not equivalent to a fasting glucose. Blood 03/08/2023 11:5 5 AM FIBERGLASS LUGGAGE MOLDER 03/08/2023 3:48 PM FIBERGLASS LUGGAGE MOLDER us Kraig Ching MD LAB BLOOD ORDERABLES Final Re sult [facility] Department [place] [address] documented in this encounter Visit Diagnoses Diagnosis Essential hypertension- Primary Unspecified essential hypertension Type 2 diabetes mellitus with stage 3a chronic kidney disease, with long-term current use of insulin ([facility]) Gastroesophageal reflux disease, unspecified whether esophagitis present Chronic bilateral low back pain with bilateral sciatica Cataract, left Unspecified cataract Allergy to statin medication Hyperlipidemia, unspecified hyperlipidemia type documented in this encounter Discontinued Medications Medication Sig Discontinue Reason Start Date End Da te LANTUS 100 unit/mL (3 mL) pen for injection ADMINISTER 28 UNITS UNDER THE SKIN DAILY Reorder 02/11/2023 03/08/2023 documented as of this encounter Care Teams Elevator Examiner Relationship Specialty Start Date End Date Kraig Ching MD [address] [place] [address] PCP - General 07/10/16 Gautam Cope MD [address] [place] [address] Medical Oncologist/Completion Supervisor Medical Oncology 08/18/18 Tramaine Roe MD [address] [facility] [address] [place] [address] Referring Physician Urology 08/18/18 Sukhwinder Uribe MD [address] [facility] [address] [place] [address] Consulting Physician Urology 08/18/18 Shay Guillermo MD [address] [facility] [address] [place] [address] Referring Physician Urology 08/18/18 Marsha Landis, RN Registered Nurse 11/17/18 documented as of this encounter
--- OUTSIDE RECORDS SUMMARY | 2024-03-31 04:54 | XMS_ITS | Encounter Summary ---
Author Organization [facility] Address [address] [place] [address] Phone Care Team Providers Care Automotive General Sales Manager Name Role Phone Kraig Ching MD Primary Care Provider [phone] Gautam Cope MD Unavailable Tramaine Roe MD Unavailable [phone] Sukhwinder Uribe MD Unavailable [phone] Shay Guillermo MD Unavailable [phone] Marsha Landis RN Unavailable Unavailab le Encounter Details Date Type Department Care Team (Late st Contact Info) Description 11/19/2022 Telephone [facility] Oncology [facility] Advanced Medicine 7th [place] [address] [place] [address] Ladi Bunch RN Social History [...] on file 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 CANDY CUTTER MACHINE Gender Identity Not on file Sexual Orientation Not on file documented as of this encounter Miscellaneous Notes * Telephone Encounter - Ladi Bunch RN - 11/19/2022 4:03 PM CDT Aspirin 81 mg tablet daily and Xalatan eyedrops deleted from medication list in error. Entered per patient report this date. Timolol correctly listed on medication list per patient. documented in this encounter Plan of Treatment [...] to monitor diabetes and kidney status, etc. [facility] Chronic Pain Care Plan Chronic Care Management No change(03/23 1:47 PM CANDY CUTTER MACHINE) No Ingrid Oden RN Note: Problem: Chronic Pain Goals: 1. Minimize further functional decline 2. Maximize quality of life 3. Control pain Strategies: - Activity/exercise program recommendation - Conservative stepwise pain medicine strategy with multi-disciplinary approach - Recommend healthy lifestyle strategies and compensatory methods as needed documented as of this encounter Visit Diagnoses Not on filedocumented in this encounter Historical Medications * This list may reflect changes made after this encounter. latanoprost (XALATAN) 0.005 % ophthalmic solution Administer 1 drop into both eyes nightly 3 aspirin 81 mg enteric coated tabletIndication s:prevention of thrombosis Take 1 tablet (81 mg total) by mouth every morning 4 added in this encounter Care Teams Automotive General Sales Manager Relationship Specialty Start Date End Date Kraig Ching MD [address] [facility] [address] [place] [address] PCP - General 07/10/16 Gautam Cope MD [address] [facility] [address] [place] [address] Medical Oncologist/Pilot Control Operator Helper Medical Oncology 08/18/18 Tramaine Roe MD [address] [facility] [address] [place] [address] Referring Physician Urology 08/18/18 Sukhwinder Uribe MD [address] [facility] [address] [place] [address] Consulting Physician Urology 08/18/18 Shay Guillermo MD [address] [facility] [address] [place] [address] Referring Physician Urology 08/18/18 Marsha Landis, RN Registered Nurse 11/17/18 documented as of this encounter
--- OUTSIDE RECORDS SUMMARY | 2024-03-31 04:54 | XMS_ITS | Encounter Summary ---
Author Organization [facility] Healthcare Address [address] [place] [address] Care Team Providers Care Web Pressman Name Role Phone Kraig Ching MD Primary Care Provider [phone] Gautam Cope MD Unavailable Tramaine Roe MD Unavailable [phone] Sukhwinder Uribe MD Unavailable [phone] Shay Guillermo MD Unavailable [phone] Marsha Landis RN Unavailable Unavailab le Encounter Details Date Type Department Care Team (Late st Contact Info) Description 02/17/2023 10:32 AM MILIEU COUNSELOR Anesthesia Event [facility] Surgery at [facility] [address] [place] [address] Renee Hughes, MERCHANDISE FLOW TEAM LEADER [phone] [facility] [phone] [place] [address] Anesthesia Record Procedure Summary Procedure Name Responsible Anesthesiologist Anesthesia Start Time Anesthesia Stop Time EXTRACTION CATARACT - PHACOEMULSIFICATION AND LENS IMPLANT (canceled) Events No events on file. Meds * Agents No agents on file. * Blood No blood administrations on file. Lines, Drains, and Airways No LDAs on file. documented in this encounter Social History Tobacco Use Types Packs/Day Years Used Date Smoking Tobacco: Former Cigarettes 0.3 52 1 - 2009 Smokeless Tobacco: Never Comments:Smoking History [...] on file 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 MILIEU COUNSELOR Gender Identity Not on file Sexual Orientation Not on file documented as of this encounter OR Notes * Anesthesia Preprocedure Evaluation - Vale Campbell NP - 02/04/2023 2:11 PM CDT Images from the original note were not included. [facility] Preoperative Assessment and Planning Preoperative Evaluation Record Evaluation type/location: TPAP from [facility] Planned procedure site: [facility] OR Date: 02/04/23 NOTE: This note represents a preoperative evaluation [...] Wei is a 82 y.o. male with HTN, HLD, CKD, DM with insulin, COPD, Metastatic Prostate CA (1998), Chronic pain with PRN opioid use, Obesity (BMI= 30) presenting for evaluation having Cataract Extraction and IOL Left eye for decreased vision d/t cataract. Past [...] 02/2018) - - mild; MR - mild; Pertinent negatives: CAD ; FL ; CABG ; valve replacement; atrial fibrillation; arrhythmia; pacemaker/ICD; PVD; DVT/PE; negative for CHF; drug-eluting stent(s); bare metal stent(s) and coronary angioplasty Respiratory + COPD Dyspnea frequency: 2 days/week or less. Rescue inhaler use: 2 days/week or less. Pertinent negatives: asthma; sleep apnea (IVAN); pulmonary hypertension; no O2 use outside the hospital; no history of oral steriod use; no prior intubation for respiratory failure and non-smoker Hepatic / Heme Pertinent negatives: liver disease; history of anemia; history of thrombocytopenia and history of Suki positive Gastrointestinal Pertinent negatives: GERD and hiatal hernia Renal / + Renal disease - CKD Pertinent negatives: dialysis and nephrolithiasis Comments: Followed by rougher helper, Dr Guerrero Musculoskeletal/Pain + Chronic pain - back pain. + Chronic opioid use (PRN oxycodone) - less than daily. Pertinent negatives: previous treatment for opioid use disorder Endocrine / Other + Diabetes mellitus - Diabetes type 2. Diagnosed: 2000. Diabetic complications: nephropathy. Outpatient insulin use: current. Pt reported low glucose range is 100. Pt reported high glucose range is 180. Pt reported HgA1c: 7.9%. Pt reported HgA1c date: 08/18/2022. + Obesity (BMI >30) + Cancer history- [...] stopping to rest. Review of Systems + recent cold/flu (Recent URI-- Treated with ATB ~12/2022; Completely resolved now) + easy bruising (Denies excessive bleeding) + chronic pain + vision loss (+Reading glasses; Decreased vision d/t cataract-- Etiology for surgery) Pertinent negatives: productive cough; wheezing; SOB; fever; chest pain; palpitations; orthopnea; pedal edema; PND; Sickle Cell disease/trait; previous transfusion; transfusion reaction; melena/hematochezia; bleeding problems; syncope; dizziness; muscle weakness; numbness/tingling; hard of hearing; heartburn; nausea; dysphagia; diarrhea; dentures/partials; chipped/loose teeth; abdominal pain; diaphoresis and no unexpected weight change PAT Summary and Plans Cardiac risk classification of planned procedure: low cardiac risk. Disposition: suitable for outpatient surgery center. Preoperative assessment status: complete pending laboratory results. Initial preoperative evaluation discussed with: Samra Church MD Additional comments: David Wei is a 82 y.o. male who is being evaluated prior to undergoinga low cardiac risk surgery. Revised Cardiac Risk Index factors are (insulin therapy for diabetes and preoperative creatinine > 2 mg/dL) for a total RCRI of 2 out of 6. Functional capacity is 4-6 METs. Comorbidities include: HTN, HLD, CKD, DM with insulin, COPD, Metastatic Prostate CA (1998), Chronicpain with PRN opioid use, Obesity (BMI= 30) [...] provided by telephone and electronically sent via [employer]. Patient verbalized understanding of instructions. Blood bank needs for day of procedure: No type and screen needed CBC, CMP 11/17/2022-- BUN= 42, Cr= 2.28, CO= 27 PSA < 0.02 on 11/17/2022, HbA1C= 7.9% on 08/18/2022 Pending labs/tests include: POC Blood Glucose ordered for DOS. CXR 01/01/2023, CT Chest 06/02/2022, TTE 02/23/2018-- See diagnostic section and in Epic The patient is on aspirin therapy for primary prevention. The bleeding risk for the planned procedure is insignificant and therefore aspirin can be continued throughout the periprocedural period. Please call the CPAP chart room clinician ([phone]) with any questions. Notified surgeon's office regarding above issue(s)-- Staff message sent to [facility] and requested they FU with pt and instruct pt on final recs for aspirin. Pending POC Blood Glucose to be reviewed by anesthesia and surgical teams prior to OR. TPAP assessment complete. Preoperative evaluation performed by Vale Campbell NP on 02/04/23 at 2:24 PM . Patient Active Problem List Diagnosis Date Noted Combined forms of age-related cataract of both eyes 10/30/2022 Moderate stage chronic narrow angle glaucoma 10/30/2022 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 10/30/2022 CKD (chronic kidney disease) 03/08/2022 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 chronic kidney disease ([facility]) 10/15/2021 Gastroesophageal reflux disease 04/08/2021 Secondary hyperparathyroidism of renal origin ([facility]) 09/15/2019 Spinal stenosis of lumbar region with neurogenic claudication 09/09/2018 Sciatica, left side 09/09/2018 Chronic bilateral low back pain with bilateral sciatica 09/09/2018 Prostate cancer ([facility]) 09/06/2018 SBO (small bowel obstruction) (CMS/HCC) ([facility]) 07/15/2018 Chronic diastolic heart failure ([facility]) 01/25/2018 Shortness of breath 01/25/2018 Hypertensive kidney disease with chronic kidney disease stage III ([facility]) 11/25/2017 Duodenal ulcer 11/25/2017 PAF (paroxysmal atrial fibrillation) (CMS/HCC) ([facility]) 10/22/2017 COPD (chronic obstructive pulmonary disease) ([facility]) 10/22/2017 Chronic kidney disease, stage 3b ([facility]) 10/22/2017 Allergy to statin medication 08/30/2017 Tobacco use 08/30/2017 Hyperlipidemia associated with type 2 diabetes mellitus ([facility]) 01/15/2017 Inflamed seborrheic keratosis 10/03/2014 Actinic keratosis 10/03/2014 Benign neoplastic disease 10/03/2014 Angioma 10/03/2014 Vitamin D deficiency 12/15/2013 Hypertension 01/12/2012 Type 2 diabetes mellitus without complication, with long-term current use of insulin ([facility]) ([facility]) 01/12/2012 Hyperlipidemia 01/12/2012 Past Medical History: Diagnosis Date Anemia Chronic pain disorder Diabetes ([facility]) Diverticulitis Esophageal stricture GERD (gastroesophageal reflux disease) History of pancreatitis 1998 History of prostate cancer Prostate CA dxd 1998 s/p prosatectomy and radiation (last 1999) HTN (hypertension) Dxd ~1999 Hyperlipidemia Treated with statin Low back pain Multiple gastric ulcers Renal disease 40% functioning Past Surgical History: Procedure Laterality Date ABDOMINAL SURGERY 1998 Extensive abdominal surgery with Pancreatic abcess/pancreatitis CHOLECYSTECTOMY 1998 COLONOSCOPY Multiple-- Last 2012 PROSTATECTOMY 1999 UPPER GASTROINTESTINAL ENDOSCOPY 12/2017 Allergies Allergen Reactions Atorvastatin Muscle pain Med List Status: Nurse Complete Set By: Valencia Whitaker RN at 01/26/2023 2:33 PM Taking? Last Dose Start Date End Date Provider abiraterone (ZYTIGA) 250 mg tablet 01/25/2023 10/15/22 -- Gautam Cope MD Take 4 tablets (1,000 mg) by mouth daily. Do not eat anything for at least 2 hours before and for at least 1 hour after Patient taking differently: Take 4 tablets (1,000 mg total) by mouth nightly Accu-Chek Fastclix Lancet Drum misc -- 11/17/22 -- Kraig Ching MD USE DIRECTED albuterol HFA (PROVENTIL HFA,VENTOLIN HFA,PROAIR HFA) 90 mcg/actuation inhaler -- 06/21/22 -- Coleen Salas MD aspirin 81 mg enteric coated tablet 01/26/2023 -- -- ProviderColeen MD blood glucose diagnostic (Accu-Chek Guide test strips) strip -- 11/09/22 -- Kraig Ching MD USE DIRECTED TO TEST BLOOD SUGAR TWICE DAILY. carvediloL (COREG) 12.5 mg tablet 01/26/2023 01/11/23 -- Lin Guerrero MD TAKE 1 TABLET(12.5 MG) BY MOUTH TWICE DAILY WITH MEALS Patient taking differently: Take 1 tablet (12.5 mg total) by mouth 2 (two) times a day with meals chlorthalidone 25 mg tablet 01/26/2023 10/02/22 -- Lin Guerrero MD Take 1 tablet (25 mg total) by mouth daily Patient taking differently: Take 1 tablet (25 mg total) by mouth every morning dorzolamide-timoloL (COSOPT) 22.3-6.8 mg/mL ophthalmic solution 01/26/2023 12/08/22 -- Higinio Connolly MD Administer 1 drop into both eyes 2 (two) times a day Patient taking differently: Administer 1 drop into both eyes 2 (two) times a day insulin aspart (NovoLOG) 100 unit/mL (3 mL) pen for injection Past Week 04/10/22 -- Kraig Ching MD ADMINISTER 8 UNITS UNDER THE SKIN THREE TIMES DAILY BEFORE MEALS Patient taking differently: Inject under the skin 3 (three) times a day with meals Sliding scale Januvia 25 mg tablet 01/25/2023 12/08/22 -- Kraig Ching MD TAKE 1 TABLET BY MOUTH DAILY Patient taking differently: Take 1 tablet (25 mg total) by mouth nightly ketorolac (ACULAR) 0.5 % ophthalmic solution -- 12/08/22 -- Higinio Connolly MD Instill one drop into surgical eye three time daily starting two days pre op Patient taking differently: Instill one drop into surgical eye three time daily starting two days pre op LANTUS 100 unit/mL (3 mL) pen for injection 01/25/2023 12/01/22 -- Kraig Ching MD ADMINISTER 28 UNITS UNDER THE SKIN DAILY Patient taking differently: Inject 28 Units under the skin nightly ADMINISTER 28 UNITS UNDER THE SKIN DAILY lisinopriL (PRINIVIL,ZESTRIL) 20 mg tablet 01/26/2023 07/22/22 07/22/23 Lin Guerrero MD Take 1.5 tablets (30 mg total) by mouth daily Patient taking differently: Take 1.5 tablets (30 mg total) by mouth every morning moxifloxacin (VIGAMOX) 0.5 % ophthalmic solution -- 12/08/22 -- Higinio Connolly MD Instill 1 drop into surgical eye three times daily starting two days before surgery Patient taking differently: Instill 1 drop into surgical eye three times daily starting two days before surgery oxyCODONE (ROXICODONE) 5 mg immediate release tablet Past Week 01/12/23 -- Kraig Ching MD Take 1 tablet (5 mg total) by mouth every 6 (six) hours as needed for pain Notes: Dx; prostate cancer C[address] pant[address] (PROTONIX) 40 mg EC tablet 01/26/2023 12/05/22 -- Kraig Ching MD TAKE 1 TABLET(40 MG) BY MOUTH DAILY Patient taking differently: Take 1 tablet (40 mg total) by mouth every morning pen needle, diabetic (BD Ultra-Fine Short Pen Needle) 31 gauge x 5/16 needle -- 12/24/22 -- Kraig Ching MD USE TO INJECT INSULIN 4 TIMES EVERY DAY DIRECTED pravastatin (PRAVACHOL) 20 mg tablet 01/25/2023 09/14/22 -- Kraig Ching MD TAKE 1 TABLET BY MOUTH EVERY DAY Patient taking differently: Take 1 tablet (20 mg total) by mouth nightly prednisoLONE acetate (PRED FORTE) 1 % ophthalmic suspension -- 12/08/22 -- Higinio Connolly MD Instill 1 drop into surgical eye three times daily starting after surgery Patient taking differently: Instill 1 drop into surgical eye three times daily starting after surgery predniSONE (DELTASONE) 5 mg tablet 01/26/2023 10/15/22 -- Gautam Cope MD Take 1 tablet (5 mg) by mouth two times a day Patient taking differently: Take 1 tablet (5 mg) by mouth 2 (two) times a day PreviDent 5000 Plus 1.1 % cream 01/25/2023 12/10/22 -- Coleen Salas MD No current facility-administered medications for this encounter. Current Outpatient Medications: abiraterone (ZYTIGA) 250 mg tablet albuterol HFA (PROVENTIL HFA,VENTOLIN HFA,PROAIR HFA) 90 mcg/actuation inhaler aspirin 81 mg enteric coated tablet carvediloL (COREG) 12.5 mg tablet chlorthalidone 25 mg tablet dorzolamide-timoloL (COSOPT) 22.3-6.8 mg/mL ophthalmic solution insulin aspart (NovoLOG) 100 unit/mL (3 mL) pen for injection Januvia 25 mg tablet ketorolac (ACULAR) 0.5 % ophthalmic solution LANTUS 100 unit/mL (3 mL) pen for injection lisinopriL (PRINIVIL,ZESTRIL) 20 mg tablet moxifloxacin (VIGAMOX) 0.5 % ophthalmic solution oxyCODONE (ROXICODONE) 5 mg immediate release tablet pantoprazole DR (PROTONIX) 40 mg EC tablet pravastatin (PRAVACHOL) 20 mg tablet prednisoLONE acetate (PRED FORTE) 1 % ophthalmic suspension predniSONE (DELTASONE) 5 mg tablet PreviDent 5000 Plus 1.1 % cream Accu-Chek Fastclix Lancet Drum [facility] blood glucose diagnostic (Accu-Chek Guide test strips) strip pen needle, diabetic (BD Ultra-Fine Short Pen Needle) 31 gauge x 5/16 needle Social History Tobacco Use Smoking Status Former Packs/day: 0.25 Years: 45.00 Additional pack years: 0.00 Total pack years: 11.25 Types: Cigarettes Start date: 1957 Quit date: 2009 Years since quittin.8 Smokeless Tobacco Never Tobacco Comments Smoking History Packs/day: 10 Cigarettes Alcohol Use: Not At Risk (01/26/2023) AUDIT-C Frequency of Alcohol Consumption: 2-4 times a month Average Number of Drinks: 1 or 2 [...] filed for this visit. Relevant diagnostics: ECG(s): N/A Echocardiogram(s): TTE 02/23/2018-- No previous echo report. Normal [...] N/A PFT(s): N/A Vascular studies: N/A Other: CXR 01/01/2023-- Comparison made to CT 06/02/2022. [...] labs within last 30 days. Hgb A1C: No results found for requested labs within last 30 days. CBC RBC: No results found for requested labs within last 30 days. RDW: No results found for requested labs within last 30 days. MCHC: No results found for requested labs within last 30 days. MCH: No results found for requested labs within last 30 days. MCV: No results found for requested labs within last 30 days. Hct: No results found for requested labs within last 30 days. Hgb: No results found for requested labs within last 30 days. WBC: No results found for requested labs within last 30 days. MPV: No results found for requested labs within last 30 days. Platelets: No results found for requested labs within last 30 days. RDW CV: No results found for requested labs within last 30 days. RDW Sd: No results found for requested labs within last 30 days. BMP Glucose: No results found for requested labs within last 30 days. Calcium: No results found for requested labs within last 30 days. Sodium: No results found for requested labs within last 30 days. Potassium: No results found for requested labs within last 30 days. CO2: No results found for requested labs within last 30 days. Chloride: No results found for requested labs within last 30 days. BUN: No results found for requested labs within last 30 days. Creatinine: No results found for requested labs within last 30 days. Brit index score: 80 documented in this encounter Plan of Treatment [...] Chronic Care Management No change(03/23 1:47 PM MILIEU COUNSELOR) No Ingrid Oden, RN Note: Problem: Chronic Pain Goals: 1. Minimize further functional decline 2. Maximize quality of life 3. Control pain Strategies: - Activity/exercise program recommendation - Conservative stepwise pain medicine strategy with multi-disciplinary approach - Recommend healthy lifestyle strategies and compensatory methods as needed documented as of this encounter Visit Diagnoses Not on filedocumented in this encounter Care Teams Web Pressman Relationship Specialty Start Date End Date Kraig Ching MD [address] [place] [address] PCP - General 07/10/16 Gautam Cope MD [phone] [place] [address] Medical Oncologist/Sausage Mixer Medical Oncology 08/18/18 Tramaine Roe MD [address] [place] [address] Referring Physician Urology 08/18/18 Sukhwinder Uribe MD [address] [place] [address] Consulting Physician Urology 08/18/18 Shay Guillermo MD [address] [place] [address] Referring Physician Urology 08/18/18 Marsha Landis, RN Registered Nurse 11/17/18 documented as of this encounter
--- OUTSIDE RECORDS SUMMARY | 2024-03-31 04:54 | XMS_ITS | Encounter Summary ---
Author Organization [facility] Healthcare Address [address] [place] [address] Care Team Providers Care Mobile Phlebotomist Name Role Phone Kraig Ching MD Primary Care Provider [phone] Gautam Cope MD Unavailable Tramaine Roe MD Unavailable [phone] Sukhwinder Uribe MD Unavailable [phone] Shay Guillermo MD Unavailable [phone] Marsha Landis RN Unavailable Unavailab le Encounter Details Date Type Department Care Team (Latest Contact Info) Description 02/09/2023 9:02 AM CDT - 02/09/2023 11:59 PM CDT Hospital Encounter [facility] [address] [place] [address] Prostate cancer (HCC) Discharge Disposition: Discharge to [...] on file 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 Gender Identity Not on file Sexual [...] kidney disease) stage 3, GFR 30-59 ml/min ([facility]) TAKE 1 TABLET(12.5 MG) BY MOUTH TWICE [...] disease, without long-term current use of insulin ([facility]) TAKE 1 TABLET BY MOUTH DAILY 30 tablet 11 12/08/2022 4 ketorolac (ACULAR) 0.5 % ophthalmic solution Instill one drop into surgical eye three time daily starting two days pre op 5 mL 1 12/08/2022 4 LANTUS 100 unit/mL (3 mL) pen for injection ADMINISTER 28 UNITS UNDER THE SKIN DAILY 6 mL 2 12/01/2022 3 lisinopriL (PRINIVIL,ZESTRI L) 20 mg tablet [...] Management No change(09/06 4:37 PM CDT) Ilene Ydaav RN Note: Problem: Knowledge deficit - Complications [...] Chronic Care Management No change(03/23 1:47 PM MOTORBOAT OPERATOR) No Ingrid Oden, SHEA Note: Problem: Chronic Pain Goals: 1. Minimize further functional decline 2. Maximize quality of life 3. Control pain Strategies: - Activity/exercise program recommendation - Conservative stepwise pain medicine strategy with multi-disciplinary approach - Recommend healthy lifestyle strategies and compensatory methods as needed documented as of this encounter Procedures Procedure Name Priority Date/Time Associated Diagnosis Comments EGFR STAT 02/09/2023 10:29 AM CDT Prostate cancer (HCC) DIFFERENTIAL AUTO Routine 02/09/2023 10: 29 AM CDT Prostate cancer (HCC) CBC WITH AUTO DIFFERENTIAL Routine 02/09/2023 10:29 AM CDT Prostate cancer (HCC) PSA DIAGNOSTIC Routine 02/09/2023 10:29 AM CDT Prostate cancer (HCC) LACTATE DEHYDROGENASE Routine 02/09/2023 10:29 AM CDT Prostate cancer (HCC) COMPREHENSIVE METABOLIC PANEL STAT 02/09/2023 10:29 AM CDT Prostate cancer (HCC) documented in this encounter Results * (ABNORMAL) eGFR (02/09/2023 10:29 AM CDT) eGFR 33(L) 90 - 130 mL/min/1. 73 m2 [facility] Comment: Interpretive Data Reference Interval Normal ?>/= [...] last reviewed 2021. Testing performed by: [facility], [address] [place] [phone] Blood 02/09/2023 10:2 9 AM CDT 02/09/2023 10:32 AM CDT us Gautam Cope MD LAB BLOOD ORDERABLES Final Resul t [facility] Department [place] [address] * (ABNORMAL) Differential, auto (02/09/2023 10:29 AM CDT) Neutrophil abs 10.2(H) 1.8 - 6.6 K/cumm [facility] Comment:Testing performed by : [facility], [address] [place] [phone] Lymphocyte abs 1.4 1.2 - 3.3 K/cumm [facility] Comment:Testing performed by : [facility], [address] [place] [phone] Monocyte abs 1.0 0.2 - 1.2 K/cumm [facility] Comment:Testing performed by : [facility], [address] [place] [phone] Eosinophil abs 0.1 0.0 - 0.5 K/cumm [facility] Comment:Testing performed by : [facility], [address] [place] [phone] Basophil abs 0.1 0.0 - 0.2 K/cumm [facility] Comment:Testing performed by : [facility], [address] [place] [phone] Neutrophil pct 79.9 % [facility] Comment: Interpretive Data Percent cell count reference ranges are not reported, since discordance with absolute values may lead to misinterpretation of CBC data. Current Interpretive Data was last revised on 2017. Testing performed by: [facility], [address] [place] [phone] Lymphocyte pct 10.6 % [facility] Comment: Interpretive Data Percent cell count reference ranges are not reported, since discordance with absolute values may lead to misinterpretation of CBC data. Current Interpretive Data was last revised on 2017. Testing performed by: [facility], [address] [place] [phone] Monocyte pct 7.7 % [facility] Comment:Testing performed by : [facility], [address] [place] [phone] Eosinophil pct 0.8 % [facility] Comment:Testing performed by : [facility], [address] [place] [phone] Basophil pct 1.0 % [facility] Comment:Testing performed by : [facility], [address] [place] [phone] Blood 02/09/2023 10:2 9 AM CDT 02/09/2023 10:31 AM CDT us Gautam Cope MD LAB BLOOD ORDERABLES Final Resul t [facility] Department [place] [address] * Lactate dehydrogenase (LD) (02/09/2023 10:29 AM CDT) Lactate dehydrogenase (LDH) 177 100 - 250 Units/L [facility] Comment:Testing performed by : [facility], [address] [place] [phone] Blood 02/09/2023 10:2 9 AM CDT 02/09/2023 10:32 AM CDT us Gautam Cope MD LAB BLOOD ORDERABLES Final Resul t [facility] Department [place] [address] * (ABNORMAL) CBC with auto differential (02/09/2023 10:29 AM CDT) WBC 12.7(H) 3.8 - 9.8 K/cumm [facility] Comment:Testing performed by : [address] [phone] Hgb 12.5(L) 13.8 - 17.2 g/dL [facility] Comment: Interpretive Data A reference range for this assay has not been established for patients with an unknown legal sex. Please refer to the laboratory test catalog for established sex-specific reference intervals. Current interpretive data was last revised on 2023. Testing performed by: [facility], [address] [place] [phone] Hct 38.5(L) 40.7 - 50.3 % [facility] Comment: Interpretive Data A reference range for this assay has not been established for patients with an unknown legal sex. Please refer to the laboratory test catalog for established sex-specific reference intervals. Current interpretive data was last revised on 2023. Testing performed by: [facility], [address] [place] [phone] Plt 391 140 - 440 K/cumm [facility] Comment:Testing performed by : [address] [phone] MPV 7.8 6.8 - 10.4 fL [facility] Comment:Testing performed by : [address] [phone] RBC 4.27(L) 4.50 - 5.70 M/cumm [facility] Comment: Interpretive Data A reference range for this assay has not been established for patients with an unknown legal sex. Please refer to the laboratory test catalog for established sex-specific reference intervals. Current interpretive data was last revised on 2023. Testing performed by: [facility], [address] [place] [phone] MCV 90.1 80.0 - 97.6 fL [facility] Comment:Testing performed by : [facility], [address] [place] [phone] MCH 29.3 26.7 - 33.7 pg [facility] Comment:Testing performed by : [facility], [address] [place] [phone] MCHC 32.5(L) 32.7 - 35.5 g/dL [facility] Comment:Testing performed by : [address] [phone] RDW CV 14.3 11.8 - 14.6 % [facility] Comment:Testing performed by : [facility], [address] [place] [phone] NRBC abs 0.00 0.00 - 0.01 K/cumm [facility] Comment:Testing performed by : [facility], [address] [place] [phone] Blood 02/09/2023 10:2 9 AM CDT 02/09/2023 10:31 AM CDT us Gautam Cope MD LAB BLOOD ORDERABLES Final Resul t [facility] Department [place] [address] * (ABNORMAL) Comprehensive metabolic panel (02/09/2023 10:29 AM CDT) Sodium 141 135 - 145 mmol/L [facility] Comment:Testing performed by : [facility], [address] [place] [phone] Potassium, pl 4.2 3.3 - 4.9 mmol/L [facility] Comment:Testing performed by : [address] [phone] Chloride 103 97 - 110 mmol/L [facility] Comment:Testing performed by : [facility], [address] [place] [phone] CO2 30 22 - 32 mmol/L [facility] Comment:Testing performed by : [facility], [address] [place] [phone] Anion gap 8 2 - 15 mmol/L [facility] Comment:Testing performed by : [facility], [address] [place] [phone] BUN 34(H) 6 - 25 mg/dL [facility] Comment:Testing performed by : [facility], [address] [place] [phone] Creatinine 1.97(H) 0.80 - 1.30 mg/dL [facility] Comment:Testing performed by : [facility], [address] [place] [phone] Glucose 108 70 - 199 mg/dL [facility] [...] last revised 2022. Testing performed by: [facility], [address] [place] [phone] Calcium 9.6 8.5 - 10.3 mg/dL [facility] Comment:Testing performed by : [facility], [address] [place] [phone] Bilirubin, total 0.4 0.1 - 1.2 mg/dL [facility] Comment:Testing performed by : [address] [phone] Protein, pl 7.0 6.5 - 8.5 g/dL [facility] Comment:Testing performed by : [facility], [address] [place] [phone] Albumin 4.2 3.5 - 5.0 g/dL [facility] Comment:Testing performed by : [facility], [address] [facility] [phone] Alk phos 129 40 - 130 Units/L [facility] Comment:Testing performed by : [facility], [address] [facility] [phone] ALT 9 7 - 55 Units/L [facility] Comment:Testing performed by : [facility], [address] [facility] [phone] AST 11 10 - 50 Units/L [facility] Comment:Testing performed by : [facility], [address] [place] [phone] Blood 02/09/2023 10:2 9 AM CDT 02/09/2023 10:32 AM CDT us Gautam Cope MD LAB BLOOD ORDERABLES Final Resul t [facility] Department [place] [address] * PSA diagnostic (02/09/2023 10:29 AM CDT) PSA-Total <0.02 <=6.20 ng/mL [facility] Comment: [...] LAB BLOOD ORDERABLES Final Resul t [facility] Department [place] [address] documented in this encounter Visit Diagnoses Diagnosis Prostate cancer (HCC) Malignant neoplasm of prostate documented in this encounter Care Teams Mobile Phlebotomist Relationship Specialty Start Date End Date Kraig Ching MD [address] [place] [address] PCP - General 07/10/16 Gautam Cope MD [address] [place] [address] Medical Oncologist/Laboratory Helper Medical Oncology 08/18/18 Tramaine Roe MD [address] [place] [address] Referring Physician Urology 08/18/18 Sukhwinder Uribe MD [address] [place] [address] Consulting Physician Urology 08/18/18 Shay Guillermo MD [address] [place] [address] Referring Physician Urology 08/18/18 Marsha Landis, RN Registered Nurse 11/17/18 documented as of this encounter
--- OUTSIDE RECORDS SUMMARY | 2024-03-31 04:54 | XMS_ITS | Encounter Summary ---
Author Organization [facility] Address [address] [place] [address] Phone Care Team Providers Care Lawyer Real Estate Name Role Phone Kraig Ching MD Primary Care Provider [phone] Gautam Cope MD Unavailable Tramaine Roe MD Unavailable [phone] Sukhwinder Uribe MD Unavailable [phone] Shay Guillermo MD Unavailable [phone] Marsha Landis RN Unavailable Unavailab le Reason for Referral * MRI/CAT/PET Scan (Routine) - Closed Specialty Diagnoses / Procedures Referred By Saleem narvaez Referred To Contact Radiology Diagnoses Prostate cancer (HCC) Procedures CT chest without contrast Gautam Cope MD [address] [facility] [address] [place] [address] Phone: tel: fax: [address] [address] Referral ID Status Reason Start Date Expiration Date Visits Re quested Visits Authorized [id number] Closed 02/01/2023 03/02/2024 1 1 Reason for Visit * Consultation (Routine) - Authorized Specialty Diagnoses / Procedures Referred By Saleem narvaez Referred To Contact Oncology Diagnoses Prostate cancer (HCC) Tramaine Roe MD [address] [facility] [address] [place] [address] Phone: tel: fax: Gautam Cope MD [address] [facility] [address] DIV IM MEDICAL ONCOLOGY, [address] [place] [address] Phone: tel: fax: Referral ID Status Reason Start Date Expiration Date Visits Requested Visits Authorized [id number] Authorized Specialty Services Required 08/15/2018 04/11/2024 99 99 Encounter Details Date Type Department Care Team (Late st Contact Info) Description 02/09/2023 11:00 AM CDT Office Visit [facility] Oncology [address] [facility] 7th [place] [address] [place] [id number] Gautam Cope MD [address] [facility] [address] [place] [address] Prostate cancer (HCC) (Primary Dx) Social History [...] on file 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 Gender Identity Not on file Sexual Orientation Not on file documented as of this encounter Last Filed Vital Signs Vital Sign Reading Time Taken Comments Blood Pressure 146/78 02/09/2023 10:41 AM CDT Pulse 77 02/09/2023 10:41 AM CDT Temperature 36.4 ??C (97.6 ??F) 02/09/2023 10:38 AM C DT Respiratory Rate 18 02/09/2023 10:38 AM CDT Oxygen Saturation 95% 02/09/2023 10:41 AM CDT Inhaled Oxygen Concentration - - Weight 96.6 kg (213 lb) 02/09/2023 10:38 AM CDT Height - - Body Mass Index 29.71 01/26/2023 2:45 PM CDT documented in this encounter Progress Notes * Beatris Herrmann NP - 02/09/2023 12:00 AM CDT PATIENT NAME: DAVID DREW : 1940 [place]: 02/09/2023 Mr. Drew is an 82-year-old patient of Dr. Cope with metastatic prostate cancer. The patient was diagnosed with prostate cancer in 1999, with a PSA of 5.5. He underwent a radical prostatectomy by Dr. Guillermo, and his pathology showed Viviana 4 + 3 disease with extracapsular extension, and a positive margin. He received adjuvant radiation therapy, completed in November 1999. In June 2012, hisPSA was rising, and by 2019, it was in the double digits. In August 2018, various imaging showed locally recurrent disease as well as a metastatic deposit at L2. We met the patient soon after, and beganLupron, abiraterone, and prednisone in October 2018. Mr. Drew has had an excellent serologic and r adiographic response to therapy. His PSA has remained undetectable. The patient denies any changes in his urination, with urinary frequency and incontinence. He has chronic lower back pain and was previously followed by Pain Management, receiving steroid injections. More recently, his lower back pain has returned. He plans to reestablish care with Pain Management for any additional therapy. He will take an occasional oxycodone, prescribed by his primary care provider. The patient is scheduled to have his cataracts removed next month, which he is looking forward to. His other medical issues include hypertension, diabetes, paroxysmal atrial fibrillation, and hyperlipidemia. He has a history of ground- glass opacities in his lungs, which have remained stable. His activity level is fairly minimal due to his back pain, but he remains independent in his activities of daily living. All other systems are negative. PHYSICAL EXAMINATION: Shows a male whose weight is 96.6 kg. Blood pressure is 146/78, with a pulse of 77. He is afebrile.His oxygen saturation is 95% on room air. Performance status is 60%. Nodes: No palpable cervical or supraclavicular adenopathy. Cardiac: Shows an S1, S2, with a blowing systolic murmur and periodic skipped beats. Lungs: Clear to auscultation bilaterally. Abdomen: Abdomen is soft and nontender, with some mild distention. No hepatosplenomegaly noted. Bowel sounds are active. Musculoskeletal: He gets on and off the exam table independently, albeit slowly. Extremities: No edema. He has scattered areas of ecchymosis on bilateral hands. Neurologic: Fifficulty with walking due to his back pain. Otherwise nonfocal. LABORATORY DATA: From today shows a WBC of 12.7 and hemoglobin of 12.5. His platelet count is 391,000. His liver function is normal with a creatinine of 1.97, and GFR 33. His PSA is < 0.02. ASSESSMENT AND PLAN: 1. Metastatic prostate cancer, currently on leuprolide, abiraterone, and prednisone. He is taking abiraterone and prednisone properly. His cancer is under excellent control with this regimen. He was diagnosed with prostate cancer in 1999, undergoing a radical prostatectomy for Viviana 7 disease. Surinder received adjuvant radiation therapy, completed in November 1999. In 2019, there was evidence of metastatic involvement, and the patient was started on this regimen, which has been controlling his cancer nicely. 2. Diabetes. He remains on insulin. 3. 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 4. Chronic lower back pain, related to degenerative joint disease. He plans to reestablish care with Pain Management. He is currently treating this with an occasional oxycodone, prescribed by his primary care provider. 5. Ground-glass opacities in his lungs. These have remained stable, and he will have another noncontrast chest CT scan prior to his next office visit in April. 6. Bilateral cataracts to be removed in February, which he is looking forward. 7. Urinary incontinence. This is farly burdening to him. We suggested referring him to urology to discuss this further, which he declines at this time. He will look into a penile clamp, but I encouraged him to discuss this further with a urologist. 8. General health maintenance. The patient has received a flu shot. Mr. Drew continues to do very well with respect to his prostate cancer. We will see him again 12 weeks from now for further follow-up. The patient is comfortable with this and will call with anyissues in between visits. ELECTRONICALLY SIGNED - 02/09/2023 12:22 PM BRANDO Chavez Nurse Practitioner In collaboration with Gautam Cope M.D. My signature confirms I have reviewed the note and agree with the assessment and plan of BRANDO Chavez ELECTRONICALLY SIGNED - 02/09/2023 12:30 PM Gautam Cope M.D. seaming machine operator ISAK/GLORIA/lul documented in this encounter Plan of Treatment [...] diabetes and kidney status, etc. [facility] Chronic Pain Care Plan Chronic Care Management No change(03/23 1:47 PM VIDEO TAPE DUPLICATOR) No Ingrid Oden, SHEA Note: Problem: Chronic Pain Goals: 1. Minimize further functional decline 2. Maximize quality of life 3. Control pain Strategies: - Activity/exercise program recommendation - Conservative stepwise pain medicine strategy with multi-disciplinary approach - Recommend healthy lifestyle strategies and compensatory methods as needed documented as of this encounter Results * CT chest without contrast (06/15/2023 12:09 PM VIDEO TAPE DUPLICATOR) Anatomical Region Laterality Modality Body N/A Computed Tomogra phy 06/15/2023 12:2 5 PM VIDEO TAPE DUPLICATOR Impressions 06/15/2023 12:25 PM VIDEO TAPE DUPLICATOR Stable areas of groundglass opacity, likely benign. Calcification of the aortic valve and coronary arteries. Electronically signed by: Masood Galdamez M.D. Narrative 06/15/2023 12:25 PM VIDEO TAPE DUPLICATOR EXAMINATION: Computed tomography of the chest without [...] Cope MD IMG CT PROCEDURES Final Result * PSA diagnostic (05/04/2023 10:23 AM VIDEO TAPE DUPLICATOR) PSA-Total <0.02 <=6.20 ng/mL [facility] Comment: Interpretive Data ?AGE ? SEX ?REFERENCE [...] revised 21. Blood 05/04/2023 10:2 3 AM VIDEO TAPE DUPLICATOR 05/04/2023 11:07 AM VIDEO TAPE DUPLICATOR us Gautam Cope MD LAB BLOOD ORDERABLES Final Resul t [facility] Department [place] [address] * (ABNORMAL) Comprehensive metabolic panel (05/04/2023 10:23 AM VIDEO TAPE DUPLICATOR) Sodium 140 135 - 145 mmol/L [facility] Comment:Testing performed by : [facility], [address] [place] [phone] Potassium, pl 4.5 3.3 - 4.9 mmol/L [facility] Comment:Testing performed by : [facility], [address] [place] [phone] Chloride 106 97 - 110 mmol/L [facility] Comment:Testing performed by : [facility], [address] [place] [phone] CO2 27 22 - 32 mmol/L [facility] Comment:Testing performed by : [facility], [address] [place] [phone] Anion gap 8 2 - 15 mmol/L [facility] Comment:Testing performed by : [facility], [address] [place] [phone] BUN 44(H) 6 - 25 mg/dL [facility] Comment:Testing performed by : [facility], [address] [place] [phone] Creatinine 2.26(H) 0.80 - 1.30 mg/dL [facility] Comment:Testing performed by : [facility], [address] [place] [phone] Glucose 92 70 - 199 mg/dL [facility] [...] was last revised 2022. Testing performed by: [facility], [address] [place] [phone] Calcium 8.8 8.5 - 10.3 mg/dL [facility] Comment:Testing performed by : [facility], [address] [place] [phone] Bilirubin, total 0.4 0.1 - 1.2 mg/dL [facility] Comment:Testing performed by : [address] [phone] Protein, pl 6.0(L) 6.5 - 8.5 g/dL [facility] Comment:Testing performed by : [facility], [address] [place] [phone] Albumin 3.7 3.5 - 5.0 g/dL [facility] Comment:Testing performed by : [address] [phone] Alk phos 128 40 - 130 Units/L [facility] Comment:Testing performed by : [address] [phone] ALT 11 7 - 55 Units/L [facility] Comment:Testing performed by : [facility], [address] [place] [phone] AST 10 10 - 50 Units/L [facility] Comment:Testing performed by : [facility], [address] [place] [phone] Blood 05/04/2023 10:2 3 AM VIDEO TAPE DUPLICATOR 05/04/2023 10:36 AM VIDEO TAPE DUPLICATOR us Gautam Cope MD LAB BLOOD ORDERABLES Final Resul t [facility] Department [place] [address] * (ABNORMAL) CBC with auto differential (05/04/2023 10:23 AM VIDEO TAPE DUPLICATOR) WBC 10.2(H) 3.8 - 9.8 K/cumm [facility] Comment:Testing performed by : [facility], [address] [place] [phone] Hgb 12.5(L) 13.8 - 17.2 g/dL [facility] Comment:Testing performed by : [address] [phone] Hct 38.3(L) 40.7 - 50.3 % [facility] Comment:Testing performed by : [place] [phone] Plt 315 140 - 440 K/cumm [facility] Comment:Testing performed by : [facility], [address] [place] [phone] MPV 7.6 6.8 - 10.4 fL [facility] Comment:Testing performed by : [address] [phone] RBC 4.25(L) 4.50 - 5.70 M/cumm [facility] Comment:Testing performed by : [place] [phone] MCV 90.1 80.0 - 97.6 fL [facility] Comment:Testing performed by : [address] [phone] MCH 29.4 26.7 - 33.7 pg [facility] Comment:Testing performed by : [facility], [address] [place] [phone] MCHC 32.7 32.7 - 35.5 g/dL [facility] Comment:Testing performed by : [facility], [address] [place] [phone] RDW CV 14.9(H) 11.8 - 14.6 % [facility] Comment:Testing performed by : [facility], [address] [place] [phone] NRBC abs 0.01 0.00 - 0.01 K/cumm [facility] Comment:Testing performed by : [facility], [address] [place] [phone] Blood 05/04/2023 10:2 3 AM VIDEO TAPE DUPLICATOR 05/04/2023 10:36 AM VIDEO TAPE DUPLICATOR us Gautam Cope MD LAB BLOOD ORDERABLES Final Resul t Performing Organization Address [facility] de Phone Number [facility] [place] [address] * Lactate dehydrogenase (LD) (05/04/2023 10:23 AM VIDEO TAPE DUPLICATOR) Lactate dehydrogenase (LDH) 153 100 - 250 Units/L [facility] Comment:Testing performed by : [facility], [address] [place] [phone] Blood 05/04/2023 10:2 3 AM VIDEO TAPE DUPLICATOR 05/04/2023 10:36 AM VIDEO TAPE DUPLICATOR us Gautam Cope MD LAB BLOOD ORDERABLES Final Resul t Performing Organization Address [facility] Co de Phone Number [facility] [place] [address] documented in this encounter Visit Diagnoses Diagnosis Prostate cancer (HCC)- Primary Malignant neoplasm of prostate Prostate cancer (HCC) Malignant neoplasm of prostate documented in this encounter Orders Appointment Requests Count Last Ordered Date rst Ordered Date ONCBCN CLINIC APPOINTMENT REQUEST 2 024 02/09/2023 ONCBCN INJECTION APPOINTMENT REQUEST 1 04/13 ON[facility]N LAB APPOINTMENT 1 05/04/2023 documented in this encounter Care Teams Lawyer Real Estate Relationship Specialty Start Date End Date Kraig Ching MD [address] [place] [address] PCP - General 07/10/16 Gautam Cope MD [address] [place] [address] Medical Oncologist/Research Animal Attendant Medical Oncology 08/18/18 Tramaine Roe MD [address] [place] [address] Referring Physician Urology 08/18/18 Sukhwinder Uribe MD [address] [place] [address] Consulting Physician Urology 08/18/18 Shay Guillermo MD [address] [place] [address] Referring Physician Urology 08/18/18 Marsha Landis, RN Registered Nurse 11/17/18 documented as of this encounter
--- OUTSIDE RECORDS SUMMARY | 2024-03-31 04:54 | XMS_ITS | Encounter Summary ---
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] Procedures [place] XCAPSL CTRC RMVL INSJ IO LENS PROSTH W/O ECP EXTRACTION CATARACT - PHACOEMULSIFICATION AND LENS IMPLANT Referral ID Status Reason Start Date Expiration Date Visits Re quested Visits Authorized [id number] 1 1 Encounter Details Date Type Department Care Team (Latest Contact Info) Description 02/18/2023 11:30 AM OPERATIONS SUPPORT SPECIALIST - 02/18/2023 11:59 PM OPERATIONS SUPPORT SPECIALIST Hospital Encounter [facility] [address] [place] [phone] Spinal stenosis of lumbar region with neurogenic claudication; Chronic bilateral low back pain with bilateral sciatica Discharge Disposition: Discharge to home or self [...] on file 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 OPERATIONS SUPPORT SPECIALIST Gender Identity Not on file Sexual [...] disease) stage 3, GFR 30-59 ml/min ([facility]) TAKE 1 TABLET(12.5 MG) BY MOUTH TWICE [...] without long-term current use of insulin ([facility]) TAKE 1 TABLET BY MOUTH DAILY 30 [...] Chronic Care Management No change(03/23 1:47 PM OPERATIONS SUPPORT SPECIALIST) No Ingrid Oden, RN Note: Problem: Chronic Pain Goals: 1. Minimize further functional decline 2. Maximize quality of life 3. 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 ??Multilevel degenerative disc disease in the lumbar spine, greatest and severe at L1-L2. Electronically signed by: Sundar Umanzor MD Narrative 02/18/2023 12:32 PM OPERATIONS SUPPORT SPECIALIST EXAMINATION: XR SPINE LUMBAR 4 OR MORE VIEWS HISTORY: ??Back pain, flare of chronic pain FINDINGS: 4 radiographs of the lumbar spine were submitted for interpretation. Comparison 07/20/2018. Mild levoconvex curvature of the thoracolumbar spine. ??Multilevel degenerative disc disease in the lumbar spine, greatest in severity L1-L2. ??Vertebral body heights are normal. ??There is mild retrolisthesis of L3 on L4 with grade 1 anterolisthesis L4 on L5. Multilevel degenerative facet arthropathy. ??Atherosclerotic thoracic calcifications. ??Surgical clips overlie the pelvis. Procedure Note Sundar Umanzor MD - 02/18/2023 EXAMINATION: XR SPINE LUMBAR 4 OR MORE VIEWS HISTORY: Back pain, flare of chronic pain FINDINGS: 4 radiographs of the lumbar spine were submitted for interpretation. Comparison 07/20/2018. Mild levoconvex curvature of the thoracolumbar spine. Multilevel degenerative disc disease in the lumbar spine, greatest in severity L1-L2. Vertebral body heights are normal. There is mild retrolisthesis of L3 on L4 with grade 1 anterolisthesis L4 on L5. Multilevel degenerative facet arthropathy. Atherosclerotic thoracic calcifications. Surgical clips overlie the pelvis. IMPRESSION: 1. Multilevel degenerative disc disease in the lumbar spine, greatest and severe at L1-L2. 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 documented in this encounter Care Teams Locomotive Engineer Diesel Relationship Specialty Start Date End Date Kraig Ching MD [address] [place] [address] PCP - General 07/10/16 Gautam Cope MD [address] [place] [address] Medical Oncologist/Equipment Inspector Medical Oncology 08/18/18 Tramaine Roe MD [address] [place] [address] Referring Physician Urology 08/18/18 Sukhwinder Uribe MD [address] [place] [address] Consulting Physician Urology 08/18/18 Shay Guillermo MD [address] [facility] [address] [place] [address] Referring Physician Urology 08/18/18 Marsha Landis, RN Registered Nurse 11/17/18 documented as of this encounter
--- OUTSIDE RECORDS SUMMARY | 2024-03-31 04:54 | XMS_ITS | Encounter Summary ---
Author Organization [facility] Address [address] [place] [address] Phone Care Team Providers Care Jig And Fixture Builder Name Role Phone Kraig Ching MD Primary Care Provider [phone] Gautam Cope MD Unavailable Tramaine Roe MD Unavailable [phone] Sukhwinder Uribe MD Unavailable [phone] Shay Guillermo MD Unavailable [phone] Marsha Landis RN Unavailable Unavailab le Encounter Details Date Type Department Care Team (Late st Contact Info) Description 02/19/[address] [facility] Cardiology [facility] Advanced Medicine 8th [place] [address] [place] [address] Kavitha Awad Social History Tobacco Use Types Packs/Day Years [...] on file 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 ROTARY DRILLER Gender Identity Not on file Sexual Orientation Not on file documented as of this encounter Miscellaneous Notes * Telephone Encounter - Kailyn Rodríguez - 02/19/2023 10:19 AM CST Requested from George. All other records in EPIC, EKG under media RY DRILLER * Telephone Encounter - Kavitha Awad - 02/19/2023 10:03 AM CST Diagnosis/Reason for Appointment: Abnormal EKG Referring Physician: JELLY LOVE Ref If Referring MD is not PCP, list specialty: Triage Questions Yes No Who/Where/When/Notes Have you ever been diagnosed with cancer, or undergone cancer treatments? [x] [] If 'Yes', Schedulefirst available with Cardio-Oncology If yes where were you treated? Prostate Cancer Currently at [place] Have you ever seen a Filtration Supervisor in an office setting? [] [x] IF SCHEDULING PATIENT WITH KARIS Have you had a baby in the last year or are you ? [] [] Have you had heart or blood pressure problems during a previous ? [] [] Dr. Alisha Ordaz Patients only: Are you a hemodialysis or peritoneal dialysis patient? (If yes then patient must be referred from another MD, DO NOT SCHEDULE) [] [] Patient History Questions Yes No Where/When/Notes Have you EVER been hospitalized for ANY cardiac issue? [x] [] [facility]- Af[facility] in 2019 Have you ever had any cardiac testing, imaging, or procedures? (Testing - echo, EKG, stress) (Imaging - Cardiac MRI, CT or calcium scoring) (Procedure - Ablation, Cardioversion, CABG) [x] [] EKG- February 18, 2023 Sukhjinder Have you ever had a sleep study? [] [x] Do you have a device? If yes what type? (Pacemaker, Defibrillator, Implanted Loop Recorder) [] [x] If yes, where and when was device put in? Musical Instrument Supervisor? ([employer], [employer], [employer]) Appointment Date: 03/18 Provider: Dr. Albert Location: [facility] [x] Confirm appt date, time, provider and location. [x] Advise pt to arrive 15- 20 min early. [x] Advise patient to bring medications/list, photo ID and insurance card [x] Advise of New PatientPacket being mailed to them. RY DRILLER documented in this encounter Plan of Treatment [...] Chronic Care Management No change(03/23 1:47 PM ROTARY DRILLER) No Ingrid Oden RN Note: Problem: Chronic Pain Goals: 1. Minimize further functional decline 2. Maximize quality of life 3. Control pain Strategies: - Activity/exercise program recommendation - Conservative stepwise pain medicine strategy with multi-disciplinary approach - Recommend healthy lifestyle strategies and compensatory methods as needed documented as of this encounter Visit Diagnoses Not on filedocumented in this encounter Care Teams Jig And Fixture Builder Relationship Specialty Start Date End Date Kraig Ching MD [address] [facility] [address] [place] [address] PCP - General 07/10/16 Gautam Cope MD [address] [facility] [address] [place] [address] Medical Oncologist/Educator Senior Clinical Medical Oncology 08/18/18 [place] [address] [place] [address] [address] [place] [address] Referring Physician Urology 08/18/18 Sukhwinder Uribe MD [address] [facility] [address] [place] [address] Consulting Physician Urology 08/18/18 [place] [address] [place] [address] [address] [place] [address] Referring Physician Urology 08/18/18 Marsha Landis, RN Registered Nurse 11/17/18 documented as of this encounter
--- OUTSIDE RECORDS SUMMARY | 2024-03-31 04:54 | XMS_ITS | Encounter Summary ---
Author Organization [facility] Address [address] [place] [address] Care Team Providers Care Fluorescent Lighting Model Maker Name Role Phone Kraig Ching MD Primary Care Provider [phone] Gautam Cope MD Unavailable Tramaine Roe MD Unavailable [phone] Sukhwinder Uribe MD Unavailable Shay Guillermo MD Unavailable [phone] Marsha Landis RN Unavailable Unavailab le Reason for Referral * Consultation (Routine) - Closed Specialty Diagnoses / Procedures Referred By Saleem narvaez Referred To Contact Cardiology Diagnoses Abnormal EKG Systolic murmur Mary Ellen Stone NP [address] [address] Phone: tel: fax: [facility] (All Locations) Referral ID Status Reason Start Date Expiration Date V isits Requested Visits Authorized [id number] Closed Specialty Services Required 02/18/2023 03/19/2024 12 12 Question Answer Please select the performing region: [facility] (All Locations) [167] Is this referral for the [facility]? No # of visits: 1 Comments Had an abnormal EKG as part of pre-op clearance. Anesthesia declined to proceed, notes show no details of what they found. EKG image quality from hospital poor. MANAGEMENT ENGINEER * Cardiology (Routine) - Closed Specialty Diagnoses / Procedures Referred By Saleem narvaez Referred To Contact Diagnoses Abnormal EKG Systolic murmur Procedures ECG 12 lead Mary Ellen Stone NP [address] [place] [address] Phone: tel: fax: [facility] [address] [place] [address] Referral ID Status Reason Start Date Expiration Date Visits Re quested Visits Authorized [id number] Closed 02/18/2023 03/19/2024 1 1 MANAGEMENT ENGINEER Encounter Details Date Type Department Care Team (Late st Contact Info) Description 02/18/2023 10:30 AM DATA MANAGEMENT ENGINEER Office Visit [facility] [address] [facility] [address] [place] [address] Mary Ellen Stone NP [address] [address] Abnormal EKG (Primary Dx); Systolic murmur; Spinal stenosis of lumbar region with neurogenic claudication; Chronic bilateral low back pain with bilateral sciatica Social History Tobacco Use Types Packs/Day Years [...] on file 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 DATA MANAGEMENT ENGINEER Gender Identity Not on file Sexual Orientation Not on file documented as of this encounter Last Filed Vital Signs Vital Sign Reading Time Taken Comments Blood Pressure 137/80 02/18/2023 10:40 AM DATA MANAGEMENT ENGINEER Pulse 77 02/18/2023 10:40 AM DATA MANAGEMENT ENGINEER Temperature 36.1 ??C (97 ??F) 02/18/2023 10:40 AM DATA MANAGEMENT ENGINEER Respiratory Rate 18 02/18/2023 10:40 AM DATA MANAGEMENT ENGINEER Oxygen Saturation 95% 02/18/2023 10:40 AM DATA MANAGEMENT ENGINEER Inhaled Oxygen Concentration - - Weight 98.4 kg (217 lb) 02/18/2023 10:40 AM DATA MANAGEMENT ENGINEER Height 180.3 cm (5' 11 ) 02/18/2023 10:40 AM DATA MANAGEMENT ENGINEER Body Mass Index 30.27 02/18/2023 10:40 AM DATA MANAGEMENT ENGINEER documented in this encounter Progress Notes * Mary Ellen Stone NP - 02/18/2023 10:30 AM CST Images from the original note were not included. David Wei, a 82 y.o. male presents to clinic with a Chief Complaint of abnormal EKG HPI Patient was scheduled to have eye surgery yesterday. An EKG done by Anesthesiology was completed and he was told that he would a ???conduction problem?? and the Anesthesiology could not safely proceed with the procedure. As of this note, there was no further information in the note about their spec ific findings. The EKG scanned in the chart is a very poor quality and can not be read easily. There appears to be a possible RBBB, but further workup is needed. The patient currently does not have acardiologist. Separately, after the visit, the patient's contacted this office stating he needed imaging of his lower spine due to a flare-up in chronic pain. X-ray was ordered. This was not discussed during the visit Subjective Allergies Allergen Reactions Atorvastatin Muscle pain Review of Systems Constitutional: Positive for activity change and fatigue. Negative for diaphoresis and unexpected weight change. Eyes: Negative for visual disturbance. Respiratory: Positive for shortness of breath. Negative for chest tightness. Cardiovascular: Negative. Negative for chest pain, palpitations and leg swelling. Gastrointestinal: Negative for abdominal pain and nausea. Neurological: Positive for light-headedness. Psychiatric/Behavioral: Negative. Objective BP 137/80 (BP Location: Right arm, Patient Position: Sitting) Pulse 77 Temp 36.1 ??C (97 ??F) (Oral) Resp 18 Ht 180.3 cm (5' 11 ) Wt 98.4 kg (217 lb) SpO2 95% BMI 30.27 kg/m?? BP Readings from Last 3 Encounters: 02/18/23 137/80 02/09/23 146/78 01/01/23 162/84 Physical Exam Vitals reviewed. Constitutional: General: He is not in acute distress. Appearance: Normal appearance. He is not ill-appearing or diaphoretic. Cardiovascular: Rate and Rhythm: Normal rate and regular rhythm. Heart sounds: Murmur heard. Systolic murmur is present with a grade of 3/6. Pulmonary: Effort: Pulmonary effort is normal. Breath sounds: Normal breath sounds. Skin: General: Skin is warm. Coloration: Skin is pale. Neurological: General: No focal deficit present. Mental Status: He is alert. Psychiatric: Behavior: Behavior normal. Thought Content: Thought content normal. Assessment/Plan Diagnoses and all orders for this visit: Abnormal EKG (Primary) Comments: Unknown, possibly new problem. No notes detailing the issue provided by anesthesia that I can find.EKG image quality is poor. Repeat EKG today. Refer to Cardiology. Orders: - ECG 12 lead; Future - Ambulatory referral to Cardiology; Future Systolic murmur Comments: Patient currently does not have a residential real estate agent. Refer to Cardiology for further evaluation. Orders: - ECG 12 lead; Future - Ambulatory referral to Cardiology; Future Spinal stenosis of lumbar region with neurogenic claudication Comments: X-ray ordered. Orders: - XR Spine Lumbar Complete 4 Or More; Future Chronic bilateral low back pain with bilateral sciatica Comments: X-ray ordered. Orders: - XR Spine Lumbar Complete 4 Or More; Future This note may have been completed using dictation software and may not have been proofread for grammatical accuracy. Please contact author with any questions. Mary Ellen Stone DNP Cosigned by Kraig Ching MD at 02/18/2023 2:02 PM DATA MANAGEMENT ENGINEER MANAGEMENT ENGINEER MANAGEMENT ENGINEER documented in this encounter Plan of Treatment Scheduled Referrals Name Type Priority Associated Diagnoses Order Schedule Ambulatory referral to Cardiology Outpatient Referral Routine Abnormal EKG Systolic murmur Expected: 03/04/2023 (Approximate), Expires: 02/19/2024 documented as of this encounter Goals Goal [...] Chronic Care Management No change(03/23 1:47 PM DATA MANAGEMENT ENGINEER) No Ingrid Oden, RN Note: Problem: Chronic Pain Goals: 1. Minimize further functional decline 2. Maximize quality of life 3. Control pain Strategies: - Activity/exercise program recommendation - Conservative stepwise pain medicine strategy with multi-disciplinary approach - Recommend healthy lifestyle strategies and compensatory methods as needed documented as of this encounter Results * ECG 12 lead (02/18/2023 12:10 PM DATA MANAGEMENT ENGINEER) Ventricular Rate EKG/Min 67 BPM [facility] Atrial Rate 67 BPM [facility] MD-Interval (MSEC) 240 ms [facility] QRS-Interval (MSEC) 86 ms [facility] QT-Interval (MSEC) 412 ms [facility] QTc 435 ms [facility] P [place] 10 degrees [facility] R [place] 18 degrees [facility] T [place] 85 degrees [facility] Diagnosis Sinus rhythm with sinus arrhythmia with 1st degree A-V block with occasional Premature ventricular complexes Nonspecific T wave abnormality Early R wave progression Abnormal ECG No previous ECGs available Confirmed by TOO DICKENS M.D ([id number]) on 02/25/2023 1:44:07 PM [facility] 02/18/2023 12:1 0 PM DATA MANAGEMENT ENGINEER 02/25/2023 1:44 PM DATA MANAGEMENT ENGINEER us Mary Ellen Stone HAT LINING PASTER ECG ORDERABLES Final Result [facility] * XR Spine Lumbar Complete 4 Or More (02/18/2023 11:42 AM DATA MANAGEMENT ENGINEER) Anatomical Region Laterality Modality Spine N/A Computed Radiogr aphy 02/18/2023 12:3 2 PM DATA MANAGEMENT ENGINEER Impressions 02/18/2023 12:32 PM DATA MANAGEMENT ENGINEER 1. ??Multilevel degenerative disc disease in the lumbar spine, greatest and severe at L1-L2. 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 low back pain with bilateral sciatica documented in this encounter Care Teams Fluorescent Lighting Model Maker Relationship Specialty Start Date End Date Kraig Ching MD [address] [facility] [address] [place] [address] PCP - General 07/10/16 Gautam Cope MD [address] [facility] [address] [place] [address] Medical Oncologist/Lead Care Manager Medical Oncology 08/18/18 Tramaine Roe MD [address] [facility] [address] [place] [address] Referring Physician Urology 08/18/18 Sukhwinder Uribe MD [address] [facility] [address] [place] [address] Consulting Physician Urology 08/18/18 Shay Guillermo MD [address] [facility] [address] [place] [address] Referring Physician Urology 08/18/18 Marsha Landis, RN Registered Nurse 11/17/18 documented as of this encounter
--- OUTSIDE RECORDS SUMMARY | 2024-03-31 04:54 | XMS_ITS | Encounter Summary ---
Author Organization [facility] Healthcare Address [address] [place] [address] Care Team Providers Care Medical Lab Technologist Name Role Phone Kraig Ching MD Primary Care Provider [phone] Gautam Cope MD Unavailable Tramaine Roe MD Unavailable [phone] Sukhwinder Uribe MD Unavailable [phone] Shay Guillermo MD Unavailable [phone] Marsha Landis RN Unavailable Unavailab le Encounter Details Date Type Department Care Team (Latest Contact Info) Description 11/17/2022 11:30 AM CDT - 11/17/2022 11:59 PM CDT Hospital Encounter [facility] [address] [place] [address] Prostate cancer (HCC) Discharge Disposition: Discharge to [...] on file 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 Do not eat anything for at least 2 hours before and for at least 1 hour after 120 tablet 4 10/15/2022 3 Accu-Chek Fastclix Lancet Drum misc USE DIRECTED 204 each 1 11/17/2022 4 blood glucose diagnostic (Accu-Chek Guide test strips) strip USE DIRECTED TO TEST BLOOD SUGAR TWICE DAILY. 200 strip 1 11/09/2022 4 carvediloL (COREG) 12.5 mg tabletIndication s:CKD (chronic kidney disease) stage 3, GFR 30-59 ml/min (HCC) Take 1 tablet (12.5 mg total) by mouth 2 (two) times a day with meals 180 tablet 10/19/2022 3 chlorthalidone 25 mg tablet Take 1 tablet (25 mg total) by mouth daily 90 tablet 3 10/02/2022 4 insulin aspart (NovoLOG) 100 unit/mL (3 mL) pen for injection ADMINISTER 8 UNITS UNDER THE SKIN THREE TIMES DAILY BEFORE MEALS 3 mL 11 04/10/2022 4 Januvia 25 mg tabletIndication s:Type 2 diabetes mellitus with stage 3 chronic kidney disease, without long-term current use of insulin (HCC) TAKE 1 TABLET BY MOUTH DAILY 30 tablet 11 02/10/2022 3 LANTUS 100 unit/mL (3 mL) pen for injection ADMINISTER 28 UNITS UNDER THE SKIN DAILY 6 mL 2 09/17/2022 3 lisinopriL (PRINIVIL,ZESTRI L) 20 mg tablet [...] TABLET(40 MG) BY MOUTH DAILY 90 tablet 09/04/2022 3 pen needle, diabetic (BD Ultra-Fine Short Pen Needle) 31 gauge x 5/16 needle Use as directed to inject insulin once daily.Use inject insulin Three times a day also PT has two different insulin that he use 400 each 11 05/26/2021 3 pravastatin (PRAVACHOL) 20 mg tablet TAKE 1 TABLET BY MOUTH EVERY DAY 90 tablet 3 09/14/2022 4 predniSONE (DELTASONE) 5 mg tablet Take 1 tablet (5 mg) by mouth two times a day 60 tablet 9 10/15/2022 4 timolol (TIMOPTIC-XE) 0.5 % ophthalmic gel-forming 06/16/2021 3 documented as of this encounter Discharge Disposition [...] to monitor diabetes and kidney status, etc. [facility] Chronic Pain Care Plan Chronic Care Management No change(03/23 1:47 PM EYE PHYSICIAN) No Ingrid Oden, RN Note: Problem: Chronic Pain Goals: 1. Minimize further functional decline 2. Maximize quality of life 3. Control pain Strategies: - Activity/exercise program recommendation - Conservative stepwise pain medicine strategy with multi-disciplinary approach - Recommend healthy lifestyle strategies and compensatory methods as needed documented as of this encounter Procedures Procedure Name Priority Date/Time Associated Diagnosis Comments EGFR STAT 11/17/2022 10:18 AM CDT Prostate cancer (HCC) DIFFERENTIAL AUTO Routine 11/17/2022 10: 18 AM CDT Prostate cancer (HCC) CBC WITH AUTO DIFFERENTIAL Routine 11/17/2022 10:18 AM CDT Prostate cancer (HCC) PSA DIAGNOSTIC Routine 11/17/2022 10:18 AM CDT Prostate cancer (HCC) LACTATE DEHYDROGENASE Routine 11/17/2022 10:18 AM CDT Prostate cancer (HCC) COMPREHENSIVE METABOLIC PANEL STAT 11/17/2022 10:18 AM CDT Prostate cancer (HCC) documented in this encounter Results * (ABNORMAL) eGFR (11/17/2022 10:18 AM CDT) eGFR 28(L) 90 - 130 mL/min/1. 73 m2 [facility] Comment: Interpretive Data Reference Interval Normal ?>/= [...] was last reviewed 2021. Testing performed by: [facility], [address] [place] [phone] Blood 11/17/2022 10:1 8 AM CDT 11/17/2022 10:26 AM CDT us Gautam Cope MD LAB BLOOD ORDERABLES Final Resul t [facility] [place] [address] * (ABNORMAL) Differential, auto (11/17/2022 10:18 AM CDT) Neutrophil abs 9.0(H) 1.8 - 6.6 K/cumm [facility] Comment:Testing performed by : [facility], [address] [place] [phone] Lymphocyte abs 1.2 1.2 - 3.3 K/cumm [facility] Comment:Testing performed by : [facility], [address] [place] [phone] Monocyte abs 0.8 0.2 - 1.2 K/cumm [facility] Comment:Testing performed by : [facility], [address] [place] [phone] Eosinophil abs 0.1 0.0 - 0.5 K/cumm [facility] Comment:Testing performed by : [facility], [address] [place] [phone] Basophil abs 0.1 0.0 - 0.2 K/cumm [facility] Comment:Testing performed by : [facility], [address] [place] [phone] Neutrophil pct 80.2 % [facility] Comment: Interpretive Data Percent cell count reference ranges are not reported, since discordance with absolute values may lead to misinterpretation of CBC data. Current Interpretive Data was last revised on 2017. Testing performed by: [facility], [address] [place] [phone] Lymphocyte pct 10.9 % [facility] Comment: Interpretive Data Percent cell count reference ranges are not reported, since discordance with absolute values may lead to misinterpretation of CBC data. Current Interpretive Data was last revised on 2017. Testing performed by: [facility], [address] [place] [phone] Monocyte pct 6.9 % [facility] Comment:Testing performed by : [facility], [address] [place] [phone] Eosinophil pct 1.2 % [facility] Comment:Testing performed by : [facility], [address] [place] [phone] Basophil pct 0.8 % [facility] Comment:Testing performed by : [facility], [address] [place] [phone] Blood 11/17/2022 10:1 8 AM CDT 11/17/2022 10:26 AM CDT Gautam Cope MD LAB BLOOD ORDERABLES Final Resul t Performing Organization Address [facility] de Phone Number [facility] [place] [address] * Lactate dehydrogenase (LD) (11/17/2022 10:18 AM CDT) Lactate dehydrogenase (LDH) 161 100 - 250 Units/L [facility] Comment:Testing performed by : [facility], [address] [place] [phone] Blood 11/17/2022 10:1 8 AM CDT 11/17/2022 10:26 AM CDT Gautam Cope MD LAB BLOOD ORDERABLES Final Resul t Performing Organization Address [facility] de Phone Number [facility] [place] [address] * (ABNORMAL) CBC with auto differential (11/17/2022 10:18 AM CDT) WBC 11.2(H) 3.8 - 9.8 K/cumm [facility] Comment:Testing performed by : [facility], [address] [place] [phone] Hgb 12.1(L) 13.8 - 17.2 g/dL [facility] Comment:Testing performed by : [facility], [address] [place] [phone] Hct 37.2(L) 40.7 - 50.3 % [facility] Comment:Testing performed by : [facility], [address] [place] [phone] Plt 343 140 - 440 K/cumm [facility] Comment:Testing performed by : [facility], [address] [place] [phone] MPV 7.6 6.8 - 10.4 fL [facility] Comment:Testing performed by : [facility], [address] [place], [place] [phone] RBC 4.17(L) 4.50 - 5.70 M/cumm [facility] Comment:Testing performed by : [facility], [address] [place], [place] [phone] MCV 89.2 80.0 - 97.6 fL [facility] Comment:Testing performed by : [facility], [address] [place], [place] [phone] MCH 28.9 26.7 - 33.7 pg [facility] Comment:Testing performed by : [facility], [address] [place] [phone] MCHC 32.5(L) 32.7 - 35.5 g/dL [facility] Comment:Testing performed by : [address] [phone] RDW CV 14.5 11.8 - 14.6 % [facility] Comment:Testing performed by : [facility], [address] [place] [phone] NRBC abs 0.00 0.00 - 0.01 K/cumm [facility] Comment:Testing performed by : [facility], [address] [place] [phone] Blood 11/17/2022 10:1 8 AM CDT 11/17/2022 10:26 AM CDT us Gautam Cope MD LAB BLOOD ORDERABLES Final Resul t [facility] [place] [address] * (ABNORMAL) Comprehensive metabolic panel (11/17/2022 10:18 AM CDT) Sodium 141 135 - 145 mmol/L [facility] Comment:Testing performed by : [facility], [address] [place] [phone] Potassium, pl 4.9 3.3 - 4.9 mmol/L [facility] Comment:Testing performed by : [facility], [address] [place] [phone] Chloride 106 97 - 110 mmol/L [facility] Comment:Testing performed by : [facility], [address] [place] [phone] CO2 27 22 - 32 mmol/L [facility] Comment:Testing performed by : [facility], [address] [place] [phone] Anion gap 8 2 - 15 mmol/L [facility] Comment:Testing performed by : [facility], [address] [place] [phone] BUN 42(H) 6 - 25 mg/dL [facility] Comment:Testing performed by : [facility], [address] [place] [phone] Creatinine 2.28(H) 0.80 - 1.30 mg/dL [facility] Comment:Testing performed by : [facility], [address] [place] [phone] Glucose 187 70 - 199 mg/dL [facility] Comment: Interpretive Data Fasting glucose >/= 126 [...] was last revised 2022. Testing performed by: [facility], [address] [place] [phone] Calcium 9.2 8.5 - 10.3 mg/dL [facility] Comment:Testing performed by : [facility], [address] [place] [phone] Bilirubin, total 0.4 0.1 - 1.2 mg/dL [facility] Comment:Testing performed by : [facility], [address] [place] [phone] Protein, pl 6.6 6.5 - 8.5 g/dL [facility] Comment:Testing performed by : [facility], [address] [place] [phone] Albumin 4.0 3.5 - 5.0 g/dL [facility] Comment:Testing performed by : [facility], [address] [place] [phone] Alk phos 112 40 - 130 Units/L [facility] Comment:Testing performed by : [facility], [address] [place] [phone] ALT 12 7 - 55 Units/L [facility] Comment:Testing performed by : [facility], [address] [place] [phone] AST 13 10 - 50 Units/L [facility] Comment:Testing performed by : [facility], [address] [place] [phone] Blood 11/17/2022 10:1 8 AM CDT 11/17/2022 10:26 AM CDT us Gautam Cope MD LAB BLOOD ORDERABLES Final Resul t Performing Organization Address City/State/[facility] Co de Phone Number [facility] Department [place] [address] * PSA diagnostic (11/17/2022 10:18 AM CDT) PSA-Total <0.02 <=6.20 ng/mL [facility] Comment: Interpretive Data ?AGE ? SEX ?REFERENCE [...] Current interpretive data last revised 21. Blood 11/17/2022 10:1 8 AM CDT 11/17/2022 10:45 AM CDT us Gautam Cope MD LAB BLOOD ORDERABLES Final Resul t Performing Organization Address City/State/[facility] Co fl Phone Number [facility] Department [place] [address] documented in this encounter Visit Diagnoses Diagnosis Prostate cancer (HCC) Malignant neoplasm of prostate documented in this encounter Care Teams Medical Lab Technologist Relationship Specialty Start Date End Date Kraig Ching MD [address] [facility] [address] [place] [address] PCP - General 07/10/16 Gautam Cope MD [address] [facility] [address] [place] [address] Medical Oncologist/Station Captain Medical Oncology 08/18/18 Tramaine Roe MD [address] [facility] [address] [place] [address] Referring Physician Urology 08/18/18 Sukhwinder Uribe MD [address] [facility] [address] [place] [address] Consulting Physician Urology 08/18/18 Shay Guillermo MD [address] [facility] [address] [place] [address] Referring Physician Urology 08/18/18 Marsha Landis, RN Registered Nurse 11/17/18 documented as of this encounter
--- OUTSIDE RECORDS SUMMARY | 2024-03-31 04:54 | XMS_ITS | Encounter Summary ---
Author Organization [facility] Address [address] [place] [address] Phone Care Team Providers Care Box Coverer Hand Name Role Phone Kraig Ching MD Primary Care Provider [phone] Gautam Cope MD Unavailable Tramaine Roe MD Unavailable Sukhwinder Uribe MD Unavailable [phone] Shay Guillermo MD Unavailable [phone] Marsha Landis RN Unavailable Unavailab le Encounter Details Date Type Department Care Team (Latest Contact Info) Description 03/21/2023 Orders Only [facility] Scanning, Provider [...] on file 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 CMO Gender Identity Not on file Sexual Orientation Not on file documented as of this encounter Plan of Treatment Scheduled Orders Name Type Priority Associated Diagnoses Orde r Schedule CARDIOLOGY DOCUMENT SCAN Cardiac Services Ordered: 03/21/2023 documented as of this encounter Goals Goal [...] Chronic Care Management No change(03/23 1:47 PM CMO) No Ingrid Oden, RN Note: Problem: Chronic Pain Goals: 1. Minimize further functional decline 2. Maximize quality of life 3. Control pain Strategies: - Activity/exercise program recommendation - Conservative stepwise pain medicine strategy with multi-disciplinary approach - Recommend healthy lifestyle strategies and compensatory methods as needed documented as of this encounter Visit Diagnoses Not on filedocumented in this encounter Care Teams Box Coverer Hand Relationship Specialty Start Date End Date Kraig Ching MD [address] [place] [address] PCP - General 07/10/16 Gautam Cope MD [address] [place] [address] Medical Oncologist/Pipe Machine Operator Medical Oncology 08/18/18 Tramaine Roe MD [address] [place] [address] Referring Physician Urology 08/18/18 Sukhwinder Uribe MD [address] [place] [address] Consulting Physician Urology 08/18/18 Shay Guillermo MD [address] [place] [address] Referring Physician Urology 08/18/18 Marsha Landis, RN Registered Nurse 11/17/18 documented as of this encounter
--- OUTSIDE RECORDS SUMMARY | 2024-03-31 04:54 | XMS_ITS | Encounter Summary ---
Author Organization [facility] Address [address] [place] [address] Phone Care Team Providers Care Coin Box Collector Name Role Phone Kraig Ching MD Primary Care Provider [phone] Gautam Cope MD Unavailable Tramaine Roe MD Unavailable Sukhwinder Uribe MD Unavailable [phone] Shay Guillermo MD Unavailable Marsha Landis RN Unavailable Unavailab le Reason for Visit * Episode Based Medications (Routine) - Authorized Specialty Diagnoses / Procedures Referred By Saleem t Referred To Contact Oncology Diagnoses Prostate cancer (HCC) Procedures WI LEUPROLIDE ACETATE SUSPNSION Leuprolide Every 3 Months - Prostate Gautam Cope MD [address] [facility] [address] [place] [address] Phone: tel: fax: [facility] - [facility] [address] [facility] [address] [place] [address] Referral ID Status Reason Start Date Expiration Date V isits Requested Visits Authorized [id number] Authorized 09/06/2018 07/11/2024 1 50 Encounter Details Date Type Department Care Team (Late st Contact Info) Description 02/09/2023 11:30 AM CDT Infusion [facility] Oncology [address] 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 male who presents for the following injection: [facility] Nursing Assessment Nursing Assessment LOC: Alert, Drowsy Fatigue: Constant Any falls since your last visit?: No Orientation: Oriented x4 Speech: Clear Language: No aphasia Peripheral Neuropathy: No Lungs auscultated PRN: No Pt is on oxygen?: No Appetite: Good Nausea/Vomiting: No Diarrhea: No Constipation: No Swelling: No Additional Notes: BP: 146/78 Temp: 36.4 ??C (97.6 ??F) Temp src: Transdermal Pulse: 77 Resp: 18 SpO2: 95 % Weight: 96.6 kg (213 lb) Patient: met treatment parameters David Wei tolerated injection well Additional Notes: Discharge [...] Chronic Care Management No change(03/23 1:47 PM PROJECT MANAGER/DESIGN MANAGER) Ingrid Mcdaniels, RN Note: Problem: Chronic Pain Goals: 1. [...] 22.5 mg 22.5 mg, subcutaneous, Once, On Wed02/09/23 at 1145, For 1 dose, For subcutaneous use only. Allow product to reach room temperature before using.Indications:Prosta te cancer (HCC) Given 02/09/2023 11:15 AM CDT 22.5 mg Right Lower Abdomen documented in this encounter Orders Nursing Count Last Ordered Date First Orde red Date ONCBCN TREATMENT PARAMETERS 2 1 02/09/2023 Appointment Requests Count Last Ordered Date Fi rst Ordered Date ONCBCN INJECTION APPOINTMENT REQUEST 1 01/12 documented in this encounter Care Teams Coin Box Collector Relationship Specialty Start Date End Date Kraig Ching MD [address] [place] [address] PCP - General 07/10/16 Gautam Cope MD [address] [place] [address] Medical Oncologist/Production Line Operator Medical Oncology 08/18/18 Tramaine Roe MD [address] [place] [address] Referring Physician Urology 08/18/18 Sukhwinder Uribe MD [address] [place] [address] Consulting Physician Urology 08/18/18 Shay Guillermo MD [address] [facility] [address] [place] [address] Referring Physician Urology 08/18/18 Marsha Landis, RN Registered Nurse 11/17/18 documented as of this encounter
--- OUTSIDE RECORDS SUMMARY | 2024-03-31 04:54 | XMS_ITS | Encounter Summary ---
Author Organization [facility] Healthcare Address [address] [place] [address] Care Team Providers Care Vest Tailor Name Role Phone Kraig Ching MD Primary Care Provider Gautam Cope MD Unavailable Tramaine Roe MD Unavailable [phone] Sukhwinder Uribe MD Unavailable [phone] Shay Guillermo MD Unavailable [phone] Marsha Landis RN Unavailable Unavailab le Encounter Details Date Type Department Care Team (Late st Contact Info) Description 01/01/2023 10:35 AM CDT Lab [facility] Advanced [facility] ([facility]) [address] [place] [phone] Type 2 diabetes mellitus with stage 3a chronic kidney disease, with long-term current use of insulin (HCC) Social History Tobacco Use Types Packs/Day [...] on file 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 [employer]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 Minimize further functional decline 2. Maximize quality of life 3. Control pain Strategies: - Activity/exercise program recommendation - Conservative stepwise pain medicine strategy with multi-disciplinary approach - Recommend healthy lifestyle strategies and compensatory methods as needed documented as of this encounter Procedures Procedure Name Priority Date/Time Associated Diagnosis Comments ALBUMIN CREATININE RATIO, URINE Routine 01/01/2023 10:40 AM CDT Type 2 diabetes mellitus with stage 3a chronic kidney disease, with long-term current use of insulin (HCC) documented in this encounter Results * (ABNORMAL) Albumin Creatinine Ratio, Urine (01/01/2023 10:40 AM CDT) Albumin Ur 227.3 mg/L [facility] Comment: Interpretive Data No reference range established. Current interpretive data was last revised 2018. Creatinine Ur 66.5 mg/dL [facility] Comment: Interpretive Data No reference range established. Current interpretive data was last revised 2018. Albumin Creatinine Ratio, Ur 342(H) 1 - 29 mg/g [facility] Urine 01/01/2023 10:4 0 AM CDT 01/01/2023 10:45 AM CDT us Kraig Ching MD LAB URINE ORDERABLES Final Re sult [facility] One [facility] Department [place] [address] documented in this encounter Visit Diagnoses Diagnosis Type 2 diabetes mellitus with stage 3a chronic kidney disease, with long-term current use of insulin (HCC) documented in this encounter Care Teams Vest Tailor Relationship Specialty Start Date End Date Kraig Ching MD [address] [facility] [address] [place] [address] PCP - General 07/10/16 Gautam Cope MD [address] [facility] [address] [place] [address] Medical Oncologist/Tour Sales Representative Medical Oncology 08/18/18 Tramaine Roe MD [address] [facility] [address] [place] [address] Referring Physician Urology 08/18/18 Sukhwinder Uribe MD [address] [facility] [address] [place] [address] Consulting Physician Urology 08/18/18 Shay Guillermo MD [address] [facility] [address] [place] [address] Referring Physician Urology 08/18/18 Marsha Landis, RN Registered Nurse 11/17/18 documented as of this encounter
--- OUTSIDE RECORDS SUMMARY | 2024-03-31 04:54 | XMS_ITS | Encounter Summary ---
Author Organization [facility] Healthcare Address [address] [place] [address] Care Team Providers Care Remotely Operated Vehicle Name Role Phone Kraig Ching MD Primary Care Provider [phone] Gautam Cope MD Unavailable Tramaine Roe MD Unavailable [phone] Sukhwinder Uribe MD Unavailable [phone] Shay Guillermo MD Unavailable [phone] Marsha Landis RN Unavailable Unavailab le Reason for Visit * Reason Onset Date Comments Symptom Based Call 01/29/2023 Encounter Details Date Type Department Care Team (Late st Contact Info) Description 01/29/2023 Telephone [facility] [address] [facility] [address] [place] [address] Kraig Ching MD [address] [facility] [address] [place] [address] Symptom Based Call Social History Tobacco Use Types Packs/Day Years [...] on file 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 Non-Emergent. Is this a new or reoccurring symptom(s)? New What have you tried to help your symptom(s)? none Why was appointment not scheduled? Requesting advice from clinical teamcenter consultant. Additional Comments: Patient called stating that he would like some muscle relaxers at this time tohelp with the flare up in his back . Does message need to be routed? Yes-Action [...] Chronic Care Management No change(03/23 1:47 PM MENTAL HEALTH TECHNICIAN) No Ingrid Oden, SHEA Note: Problem: Chronic Pain Goals: 1. Minimize further functional decline 2. Maximize quality of life 3. Control pain Strategies: - Activity/exercise program recommendation - Conservative stepwise pain medicine strategy with multi-disciplinary approach - Recommend healthy lifestyle strategies and compensatory methods as needed documented as of this encounter Visit Diagnoses Not on filedocumented in this encounter Care Teams Remotely Operated Vehicle Relationship Specialty Start Date End Date Kraig Ching MD [address] [facility] [address] [place] [address] PCP - General 07/10/16 Gautam Cope MD [address] [facility] [address] [place] [address] Medical Oncologist/Campus Recruiting Internship Medical Oncology 08/18/18 Tramaine Roe MD [address] [facility] [address] [place] [address] Referring Physician Urology 08/18/18 Sukhwinder Uribe MD [address] [facility] [address] [place] [address] Consulting Physician Urology 08/18/18 Shay Guillermo MD [address] [facility] [address] [place] [address] Referring Physician Urology 08/18/18 Marsha Landis, RN Registered Nurse 11/17/18 documented as of this encounter
--- OUTSIDE RECORDS SUMMARY | 2024-03-31 04:55 | XMS_ITS | Encounter Summary ---
Author Organization [facility] Address [address] [place] [address] Phone Care Team Providers Care Comic Book Designer Name Role Phone Kraig Ching MD Primary Care Provider [phone] Gautam Cope MD Unavailable Tramaine Roe MD Unavailable [phone] Sukhwinder Uribe MD Unavailable [phone] Shay Guillermo MD Unavailable [phone] Marsha Landis RN Unavailable Unavailab le Reason for Visit * Consultation (Routine) - Authorized Specialty Diagnoses / Procedures Referred By Saleem narvaez Referred To Contact Oncology Diagnoses Prostate cancer (HCC) Tramaine Roe MD [address] [facility] [address] [place] [address] Phone: tel: fax: Gautam Cope MD [address] [facility] ONCOLOGY, [address] [place] [address] Phone: tel: fax: Referral ID Status Reason Start Date Expiration Date Visits Requested Visits Authorized [id number] Authorized Specialty Services Required 08/15/2018 04/11/2024 99 99 Encounter Details Date Type Department Care Team (Late st Contact Info) Description 08/25/2022 10:45 AM CDT Office Visit [facility] Oncology [address] 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 Gender Identity Not on file Sexual Orientation Not on file documented as of this encounter Last Filed Vital Signs Vital Sign Reading Time Taken Comments Blood Pressure 168/90 08/25/2022 9:56 AM CDT Pulse 66 08/25/2022 9:56 AM CDT Temperature 36.6 ??C (97.8 ??F) 08/25/2022 9:56 AM CD T Respiratory Rate 18 08/25/2022 9:56 AM CDT Oxygen Saturation 96% 08/25/2022 9:56 AM CDT Inhaled Oxygen Concentration - - Weight 100.7 kg (222 lb) 08/25/2022 9:56 AM CDT Height - - Body Mass Index 31.85 08/18/2022 11:43 AM CDT documented in this encounter Progress Notes * MontezBeatrisLILIA - 08/25/2022 12:00 AM CDT PATIENT NAME: DAVID DREW : 1940 [place]: 08/25/2022 Mr. Drew is an 81-year-old patient of Dr. Cope, with metastatic prostate cancer. His prostatecancer dates back to 1999, when his PSA was 5.5. He was treated with a radical prostatectomy by Dr. Guillermo, and his pathology showed [place] 4 + 3 disease with extracapsular extension, and a positive margin. He received adjuvant radiation therapy, completed in November 1999. In June 2012, his PSAwas rising, and by 2018, it was in the double digits. An MRI scan in August 2018 suggested locally recurrent disease. Further workup showed a metastatic deposit at L2. We met the patient at that time and started Lupron, abiraterone, and prednisone in October 2018. Mr. Drew has had an excellent serologic and radiographic response. His PSA has remained undetectable, and he is tolerating therapy well. He denies any changes in his urination with ongoing incontinence. He gets up 2-3x/night to void. He has chronic lower back pain, and oxycodone is prescribed by his primary care physician, which he will take occasionally. He denies any additional pain. The patient is on numerous medications for his various medical issues and will have some mild nausea. Unfortunately, his vision has worsened over the last few months, and he has been in contact with an artifacts conservator. His recently had cataract surgery, so her vision has been restored. Her greatest complaint now is osteoarthritis in her knees. Mr. Drew continues to be followed by the recreation instructor for his chronic kidney disease. His other comorbidities include hypertension, diabetes, paroxysmal atrial fibrillation, and hyperlipidemia. His blood pressure today is a little higher. He checks it routinely at home, and admits that hisblood pressure is a little higher in the morning, and improves throughout the day. Lisinopril was in creased to 30 mg by his recreation instructor. Finally, he has a history of peripheral ground-glass opacities in his lungs, and a noncontrast CT scan in May was stable. He did have a bone density in June, which was normal for a male his age. The patient denies any chest pain, shortness of breath, vomiting, or abdominal pain. He is fairly inactive, related to his back pain, but still independent in his activities of daily living. All other systems are negative. PHYSICAL EXAMINATION: Vital Signs: Shows a male whose weight is 100.7 kg. Blood pressure is 168/90, with a pulse 66. He is afebrile. His oxygen saturation is 96% on room air. Performance Status: His performance status is 60%. Nodes: No palpable cervical or supraclavicular adenopathy. Cardiac: Shows an S1, S2, with a soft early systolic murmur. Lungs: Clear to auscultation bilaterally. Abdomen: Abdomen is large, soft, nontender, nondistended. No palpable masses noted. Bowel sounds are active. Musculoskeletal: He gets on and off the exam table independently, but his gait is somewhat unsteadyand stiff. Extremities: Lower extremities show trace bilateral edema. Neurologic: Shows some muscle weakness. Otherwise nonfocal. LABORATORY DATA: From today shows a WBC of 12,600, and hemoglobin of 12.6. His platelet count is 338,000. His liver function is normal, with a creatinine of 1.92 and GFR 35. His PSA is < 0.02. ASSESSMENT AND PLAN: 1. Metastatic prostate cancer, currently on leuprolide, abiraterone, and prednisone. His cancer dates back to 1999, when he was treated with a radical prostatectomy for Viviana 7 disease. He receivedadjuvant radiation therapy later that year. Hormonal therapy was started in 2008, when there was evidence of local recurrence as well as an L2 lesion. He has done very well with hormonal therapy, andhis PSA has remained undetectable. 2. Diabetes. 3. Chronic kidney disease, followed by the recreation instructor. 4. Herniated disk, which limits his activity level. He will take an occasional oxycodone. 5. Ground-glass opacities in his lungs. Numerous CT scans have remained stable. We will repeat another CT scan of his chest in early 2023. 6. Decreased vision. He will follow up with the artifacts conservator Mr. Drew continues to do well with respect to his prostate cancer. We will see him again 3 months from now for further follow-up and another leuprolide injection. The patient is comfortable withthis plan and will call with any issues in between visits. ELECTRONICALLY SIGNED - 08/25/2022 01:07 PM BRANDO Chavez Nurse Practitioner In collaboration with Gautam Cope M.D. My signature confirms I have reviewed the note and agree with the assessment and plan of BRANDO Chavez ELECTRONICALLY SIGNED - 08/25/2022 03:02 PM Gautam Cope M.D. nephrologist ISAK/Shelia documented in this encounter Plan of Treatment [...] monitor diabetes and kidney status, etc. [facility] Chronic Pain Care Plan Chronic Care Management No change(03/23 1:47 PM MEDICAL VOUCHER CLERK) No Ingrid Oden RN Note: Problem: Chronic Pain Goals: 1. Minimize further functional decline 2. Maximize quality of life 3. Control pain Strategies: - Activity/exercise program recommendation - Conservative stepwise pain medicine strategy with multi-disciplinary approach - Recommend healthy lifestyle strategies and compensatory methods as needed documented as of this encounter Results * PSA diagnostic (11/17/2022 10:18 AM CDT) PSA-Total <0.02 <=6.20 ng/mL [facility] Comment: [...] LAB BLOOD ORDERABLES Final Resul t [facility] Department [place] [address] * (ABNORMAL) Comprehensive metabolic panel (11/17/2022 10:18 AM CDT) Sodium 141 135 - 145 mmol/L [facility] Comment:Testing performed by : [facility], [address] [place] [phone] Potassium, pl 4.9 3.3 - 4.9 mmol/L [facility] Comment:Testing performed by : [facility], [address] [place] [phone] Chloride 106 97 - 110 mmol/L [facility] Comment:Testing performed by : [facility], [address] [place] [phone] CO2 27 22 - 32 mmol/L [facility] Comment:Testing performed by : [facility], [address] [place] [phone] Anion gap 8 2 - 15 mmol/L [facility] Comment:Testing performed by : [facility], [address] [place] [phone] BUN 42(H) 6 - 25 mg/dL [facility] Comment:Testing performed by : [facility], [address] [place] [phone] Creatinine 2.28(H) 0.80 - 1.30 mg/dL [facility] Comment:Testing performed by : [facility], [address] [place] [phone] Glucose 187 70 - 199 mg/dL [facility] Comment: Interpretive Data Fasting glucose >/= 126 [...] was last revised 2022. Testing performed by: [facility], [address] [place] [phone] Calcium 9.2 8.5 - 10.3 mg/dL [facility] Comment:Testing performed by : [facility], [address] [place] [phone] Bilirubin, total 0.4 0.1 - 1.2 mg/dL [facility] Comment:Testing performed by : [facility], [address] [place] [phone] Protein, pl 6.6 6.5 - 8.5 g/dL [facility] Comment:Testing performed by : [facility], [address] [place] [phone] Albumin 4.0 3.5 - 5.0 g/dL [facility] Comment:Testing performed by : [facility], [address] [place] [phone] Alk phos 112 40 - 130 Units/L [facility] Comment:Testing performed by : [address] [phone] ALT 12 7 - 55 Units/L [facility] Comment:Testing performed by : [facility], [address] [place] [phone] AST 13 10 - 50 Units/L [facility] Comment:Testing performed by : [facility], [address] [place] [phone] Blood 11/17/2022 10:1 8 AM CDT 11/17/2022 10:26 AM CDT us Gautam Cope MD LAB BLOOD ORDERABLES Final Resul t [facility] Department of Laboratories [place], [place] [id number] * (ABNORMAL) CBC with auto differential (11/17/2022 10:18 AM CDT) WBC 11.2(H) 3.8 - 9.8 K/cumm [facility] Comment:Testing performed by : [address] [phone] Hgb 12.1(L) 13.8 - 17.2 g/dL [facility] Comment:Testing performed by : [facility], [address] [place], [place] [phone] Hct 37.2(L) 40.7 - 50.3 % [facility] Comment:Testing performed by : [facility], [address] [place], [place] [phone] Plt 343 140 - 440 K/cumm [facility] Comment:Testing performed by : [place] [phone] MPV 7.6 6.8 - 10.4 fL [facility] Comment:Testing performed by : [place] [phone] RBC 4.17(L) 4.50 - 5.70 M/cumm [facility] Comment:Testing performed by : [place] [phone] MCV 89.2 80.0 - 97.6 fL [facility] Comment:Testing performed by : [place] [phone] MCH 28.9 26.7 - 33.7 pg [facility] Comment:Testing performed by : [place] [phone] MCHC 32.5(L) 32.7 - 35.5 g/dL [facility] Comment:Testing performed by : [place] [phone] RDW CV 14.5 11.8 - 14.6 % [facility] Comment:Testing performed by : [place] [phone] NRBC abs 0.00 0.00 - 0.01 K/cumm [facility] Comment:Testing performed by : [place] [phone] Blood 11/17/2022 10:1 8 AM CDT 11/17/2022 10:26 AM CDT us Gautam Cope MD LAB BLOOD ORDERABLES Final Resul t [facility] Department [place] [address] * Lactate dehydrogenase (LD) (11/17/2022 10:18 AM CDT) Lactate dehydrogenase (LDH) 161 100 - 250 Units/L [facility] Comment:Testing performed by : [facility], [address] [facility] [place] [phone] Blood 11/17/2022 10:1 8 AM CDT 11/17/2022 10:26 AM CDT us Gautam Cope MD LAB BLOOD ORDERABLES Final Resul t [facility] Department [place] [address] documented in this encounter Visit Diagnoses Diagnosis Prostate cancer (HCC)- Primary Malignant neoplasm of prostate documented in this encounter Discontinued Medications Medication Sig Discontinue Reason Start Date End Da te cefdinir (OMNICEF) 300 mg capsule Take 1 capsule (300 mg total) by mouth every 12 (twelve) hours Therapy completed 06/21/2022 08/25/2022 azithromycin (ZITHROMAX) 250 mg tablet Therapy completed 06/21/2022 08/25/2022 documented as of this encounter Orders Appointment Requests Count Last Ordered Date Fi rst Ordered Date ONCBCN CLINIC APPOINTMENT REQUEST 2 023 08/25/2022 ONCBCN INJECTION APPOINTMENT REQUEST 1 11/2022 ONCBCN LAB APPOINTMENT 1 11/17/2022 documented in this encounter Care Teams Comic Book Designer Relationship Specialty Start Date End Date Kraig Ching MD [address] [facility] [address] [place] [address] PCP - General 07/10/16 Gautam Cope MD [address] [facility] [address] [place] [address] Medical Oncologist/Call Circuit Worker Medical Oncology 08/18/18 Tramaine Roe MD [address] [facility] [address] [place] [address] Referring Physician Urology 08/18/18 Sukhwinder Uribe MD [address] [facility] [address] [place] [address] Consulting Physician Urology 08/18/18 Shay Guillermo MD [address] [facility] [address] [place] [address] Referring Physician Urology 08/18/18 Marsha Landis, RN Registered Nurse 11/17/18 documented as of this encounter
--- OUTSIDE RECORDS SUMMARY | 2024-03-31 04:55 | XMS_ITS | Encounter Summary ---
Author Organization [facility] Address [address] [place] [address] Phone Care Team Providers Care Making Department Preparer Name Role Phone Kraig Ching MD Primary Care Provider [phone] Gautam Cope MD Unavailable Tramaine Roe MD Unavailable [phone] Sukhwinder Uribe MD Unavailable Shay Guillermo MD Unavailable [phone] Marsha Landis RN Unavailable Unavailab Reason for Visit * Reason Onset Date Comments Scheduling Appointments 08/19/2022 Encounter Details Date Type Department Care Team (Late st Contact Info) Description 08/19/2022 Telephone 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 ZAK Were Notes requested? YES Additional comments: Pt is requesting notes. Notes may be in epic documented in this encounter Plan of Treatment [...] Chronic Care Management No change(03/23 1:47 PM SUPERVISING FIRE MARSHAL) No Ingrid Oden, SHEA Note: Problem: Chronic Pain Goals: 1. Minimize further functional decline 2. Maximize quality of life 3. Control pain Strategies: - Activity/exercise program recommendation - Conservative stepwise pain medicine strategy with multi-disciplinary approach - Recommend healthy lifestyle strategies and compensatory methods as needed documented as of this encounter Visit Diagnoses Not on filedocumented in this encounter Care Teams Making Department Preparer Relationship Specialty Start Date End Date Kraig Ching MD [address] [place] [address] PCP - General 07/10/16 Gautam Cope MD [address] [place] [address] Medical Oncologist/Cemetery Workers Supervisor Medical Oncology 08/18/18 Tramaine Roe MD [address] [facility] [address] [place] [address] Referring Physician Urology 08/18/18 Sukhwinder Uribe MD [address] [facility] [address] [place] [address] Consulting Physician Urology 08/18/18 Shay Guillermo MD [address] [facility] [address] [place] [address] Referring Physician Urology 08/18/18 Marsha Landis, RN Registered Nurse 11/17/18 documented as of this encounter
--- OUTSIDE RECORDS SUMMARY | 2024-03-31 04:55 | XMS_ITS | Encounter Summary ---
Author Organization [facility] Address [address] [facility] [address] [place] [address] Care Team Providers Care Applications Engineer Name Role Phone Kraig Ching MD Primary Care Provider [phone] Gautam Cope MD Unavailable Tramaine Roe MD Unavailable [phone] Sukhwinder Uribe MD Unavailable [phone] Shay Guillermo MD Unavailable [phone] Marsha Landis RN Unavailable Unavailab le Reason for Visit * Reason Onset Date Comments Covid-19 Home Monitoring 06/23/2022 Enrollm ent Encounter Details Date Type Department Care Team (Late st Contact Info) Description 06/23/2022 Telephone [facility] Accountable Care Organization [address] [place] [address] Priyanka Lynch, [address] [facility] [address] [place] [address] Covid-19 Home Monitoring (Enrollment ) Social History Tobacco Use Types Packs/Day Years [...] points, staff should administer the PHQ-9) 0 02/12/2022 Hunger Vital Sign Answer Date Recorded Worried [...] on file 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 The patient was contacted via phone for enrollment in the program. The patient has declined to participate in the automated MyChart Auto Service Dispatcher Program, but has verbally agreed to the Phone Only Home Monitoring Program, which includes being contacted for a daily phone assessment by a [facility]/ staff member. The patient was informed that members of the healthcare team will contact them depending on the symptoms that they report. This call could come from a variety of phone numbers depending on which member of the healthcare team is contacting the patient, and the patient should be prepared to answer calls from a variety of phone numbers. If the patient is unable to be reached for 3 days, they will be disenrolled from the program. Patient is aware that we will try and reach them at every available phone number, including HIPAA contacts. After review, the patient agreed to participate. The ???COVID19 Home Monitoring?? order was placedto enroll the patient in the phone only version of the program. Enrollment during 's symptom call. documented in this encounter Plan of [...] to monitor diabetes and kidney status, etc. [facility] Chronic Pain Care Plan Chronic Care Management No change(03/23 1:47 PM DIGITAL LIBRARIAN) No Ingrid Oden, SHEA Note: Problem: Chronic Pain Goals: 1. Minimize further functional decline 2. Maximize quality of life 3. Control pain Strategies: - Activity/exercise program recommendation - Conservative stepwise pain medicine strategy with multi-disciplinary approach - Recommend healthy lifestyle strategies and compensatory methods as needed documented as of this encounter Visit Diagnoses Not on filedocumented in this encounter Care Teams Applications Engineer Relationship Specialty Start Date End Date Kraig Ching MD [address] [facility] [address] [place] [address] PCP - General 07/10/16 Gautam Cope MD [address] [facility] [address] [place] [address] Medical Oncologist/Remote Control Mirror Installer Medical Oncology 08/18/18 Tramaine Roe MD [address] [facility] [address] [place] [address] Referring Physician Urology 08/18/18 Sukhwinder Uribe MD [address] [facility] [address] [place] [address] Consulting Physician Urology 08/18/18 Shay Guillermo MD [address] [facility] [address] [place] [address] Referring Physician Urology 08/18/18 Marsha Landis, RN Registered Nurse 11/17/18 documented as of this encounter
--- OUTSIDE RECORDS SUMMARY | 2024-03-31 04:55 | XMS_ITS | Encounter Summary ---
Author Organization [facility] Address [address] [place] [address] Phone Care Team Providers Care Ems Helicopter Pilot Name Role Phone Kraig Ching MD Primary Care Provider [phone] Gautam Cope MD Unavailable Tramaine Roe MD Unavailable [phone] Sukhwinder Uribe MD Unavailable [phone] Shay Guillermo MD Unavailable [phone] Marsha Landis RN Unavailable Unavailab le Reason for Visit * Reason Comments Injections Eligard * Episode Based Medications (Routine) - Authorized Specialty Diagnoses / Procedures Referred By Contac t Referred To Contact Oncology Diagnoses Prostate cancer (HCC) Procedures WI LEUPROLIDE ACETATE SUSPNSION Leuprolide Every 3 Months - Prostate Gautam Cope MD [address] [facility] [address] [place] [address] Phone: tel: fax: [facility] - Infusion [address] [facility] [address] [place] [address] Referral ID Status Reason Start Date Expiration Date V isits Requested Visits Authorized [id number] Authorized 09/06/2018 07/11/2024 1 50 Encounter Details Date Type Department Care Team (Late st Contact Info) Description 06/02/2022 12:30 PM CASEWORK SPECIALIST Infusion [facility] Oncology [facility] Advanced Medicine 7th [place] [address] Prostate cancer (CMS/HCC) (HCC) (Primary Dx) Social History Tobacco Use [...] on file 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 CASEWORK 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 male who presents for the following injection: Leuprolide. Nursing Assessment Nursing Assessment Appetite: Good Diarrhea: No Constipation: No Last BM Date: 06/01/22 Existing Patients: Any falls since your last visit?: No Fatigue: None Mouth Sores: No Nausea/Vomiting: No Neurological symptoms: No Pain: No Peripheral Neuropathy: No Shortness of Breath?: No Respiratory Effort Characteristics: Dyspnea exertion Skin Condition/Temp: Warm, Dry Abdomen: Soft Swelling: No BP: 159/72 Temp: 36.2 ??C (97.1 ??F) Temp src: Transdermal (forehead) Pulse: 73 Resp: 20 SpO2: 95 % Weight: 101.6 kg (224 lb) Patient: met treatment parameters David Wei tolerated injection well Additional Notes: right upper arm. No c/o pain per pt Discharge Plan Discharge instructions given to patient. Discharge Mode: Ambulatory Accompanied by: Self Discharged To: Home WORK SPECIALIST documented in this encounter Plan of Treatment [...] Chronic Care Management No change(03/23 1:47 PM CASEWORK SPECIALIST) No Ingrid Oden RN Note: Problem: [...] 22.5 mg 22.5 mg, subcutaneous, Once, On Wed06/02/22 at 1230, For 1 dose, For subcutaneous use only. Allow product to reach room temperature before using.Indications:Prosta te cancer (HCC) Given 06/02/2022 12:03 PM CASEWORK SPECIALIST 22.5 mg Right Lower Abdomen documented in this encounter Orders Nursing Count Last Ordered Date First Orde red Date ONCBCN TREATMENT PARAMETERS 2 06/02/2022 Appointment Requests Count Last Ordered Date Fi rst Ordered Date ONCBCN INJECTION APPOINTMENT REQUEST 1 05/14 documented in this encounter Care Teams Ems Helicopter Pilot Relationship Specialty Start Date End Date Kraig Ching MD [address] [place] [address] PCP - General 07/10/16 Gautam Cope MD [address] [facility] [address] [place] [address] Medical Oncologist/Electric Accounting Machine Operator Medical Oncology 08/18/18 Tramaine Roe MD [address] [place] [address] Referring Physician Urology 08/18/18 Sukhwinder Uribe MD [address] [facility] [place] [address] Consulting Physician Urology 08/18/18 Shay Guillermo MD [address] [facility] [address] [place] [address] Referring Physician Urology 08/18/18 Marsha Landis, RN Registered Nurse 11/17/18 documented as of this encounter
--- OUTSIDE RECORDS SUMMARY | 2024-03-31 04:55 | XMS_ITS | Encounter Summary ---
Author Organization [facility] Healthcare Address [address] [place] [address] Care Team Providers Care Wave Solder Offbearer Name Role Phone Kraig Ching MD Primary Care Provider [phone] Gautam Cope MD Unavailable Tramaine Roe MD Unavailable [phone] Sukhwinder Uribe MD Unavailable [phone] Shay Guillermo MD Unavailable [phone] Marsha Landis RN Unavailable Unavailab le Encounter Details Date Type Department Care Team (Latest Contact Info) Description 08/25/2022 8:45 AM CDT - 08/25/2022 11:59 PM CDT Hospital Encounter [facility] [address] [place] [address] Prostate cancer (HCC) Discharge Disposition: Discharge to [...] on file 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 30 tablet 11 03/07/2018 3 blood glucose diagnostic strip 11/10/19 2 3 carvediloL (COREG) 12.5 mg tabletIndication s:CKD (chronic kidney disease) stage 3, GFR 30-59 ml/min (HCC) Take 1 tablet (12.5 mg total) by mouth 2 (two) times a day with meals 180 tablet 3 09/26/2021 3 chlorthalidone 25 mg tablet TAKE 1 TABLET(25 MG) BY MOUTH DAILY 90 tablet 3 10/27/2021 3 insulin aspart (NovoLOG) 100 unit/mL (3 mL) [...] UNDER THE SKIN DAILY 6 mL 2 07/09/2022 3 latanoprost (XALATAN) 0.005 % ophthalmic solution 05/03/2021 3 lisinopriL (PRINIVIL,ZESTRI L) 20 mg tablet Take 1.5 tablets (30 mg total) by mouth daily 135 tablet 3 07/22/2022 4 ONETOUCH ULTRA BLUE TEST STRIP strip TEST SUGAR TWICE DAILY 100 each 3 09/20/2017 3 oxyCODONE (ROXICODONE) 5 mg immediate release tabletIndication s:Pain Take 1 tablet (5 mg total) by mouth every 6 (six) hours as needed for pain 60 tablet 05/21/[address] (PROTONIX) 40 mg EC tablet TAKE 1 TABLET(40 MG) BY MOUTH DAILY 90 tablet 06/03/2022 3 pen needle, diabetic (BD Ultra-Fine Short Pen Needle) 31 gauge x 5/16 needle Use as directed to inject insulin once daily.Use inject insulin Three times a day also PT has two different insulin that he use 400 each 05/26/2021 3 pravastatin (PRAVACHOL) 20 mg tablet TAKE 1 TABLET BY MOUTH EVERY DAY 90 tablet 3 06/02/2021 3 predniSONE (DELTASONE) 5 mg tablet Take 1 tablet (5 mg) by mouth two times a day 60 tablet 10 11/20/2021 3 timolol (TIMOPTIC) 0.5 % ophthalmic solution 09/26/2021 3 timolol (TIMOPTIC-XE) 0.5 % ophthalmic gel-forming 06/16/2021 3 TRAVATAN Z 0.004 % drops INT 1 DROP INTO OU QHS 5 12/28/2017 3 documented as of this encounter Discharge [...] Chronic Care Management No change(03/23 1:47 PM CARE MANAGER) No Ingrid Oden, RN Note: Problem: Chronic Pain Goals: 1. Minimize further functional decline 2. Maximize quality of life 3. Control pain Strategies: - Activity/exercise program recommendation - Conservative stepwise pain medicine strategy with multi-disciplinary approach - Recommend healthy lifestyle strategies and compensatory methods as needed documented as of this encounter Procedures Procedure Name Priority Date/Time Associated Diagnosis Comments EGFR STAT 08/25/2022 9:51 AM CDT Prostate cancer (HCC) DIFFERENTIAL AUTO Routine 08/25/2022 9:5 1 AM CDT Prostate cancer (HCC) CBC WITH AUTO DIFFERENTIAL Routine 08/25/2022 9:51 AM CDT Prostate cancer (HCC) PSA DIAGNOSTIC Routine 08/25/2022 9:51 AM CDT Prostate cancer (HCC) LACTATE DEHYDROGENASE Routine 08/25/2022 9:51 AM CDT Prostate cancer (HCC) COMPREHENSIVE METABOLIC PANEL STAT 08/25/2022 9:51 AM CDT Prostate cancer (HCC) documented in this encounter Results * (ABNORMAL) eGFR (08/25/2022 9:51 AM CDT) eGFR 35(L) 90 - 130 mL/min/1. 73 m2 [facility] Comment: Interpretive Data Reference Interval Normal ?>/= [...] was last reviewed 2021. Testing performed by: [facility], [address] [place] [phone] Blood 08/25/2022 9:51 AM CDT 08/25/2022 9:55 AM CDT us Gautam Cope MD LAB BLOOD ORDERABLES Final Resul t [facility] Department [place] [address] * (ABNORMAL) Differential, auto (08/25/2022 9:51 AM CDT) Neutrophil abs 10.5(H) 1.8 - 6.6 K/cumm [facility] Comment:Testing performed by : [facility], [address] [place] [phone] Lymphocyte abs 1.0(L) 1.2 - 3.3 K/cumm [facility] Comment:Testing performed by : [facility], [address] [place] [phone] Monocyte abs 0.9 0.2 - 1.2 K/cumm [facility] Comment:Testing performed by : [facility], [address] [place] [phone] Eosinophil abs 0.1 0.0 - 0.5 K/cumm [facility] Comment:Testing performed by : [facility], [address] [place] [phone] Basophil abs 0.1 0.0 - 0.2 K/cumm [facility] Comment:Testing performed by : [facility], [address] [place] [phone] Neutrophil pct 83.5 % [facility] Comment: Interpretive Data Percent cell count reference ranges are not reported, since discordance with absolute values may lead to misinterpretation of CBC data. Current Interpretive Data was last revised on 2017. Testing performed by: [facility], [address] [place] [phone] Lymphocyte pct 7.9 % [facility] Comment: Interpretive Data Percent cell count reference ranges are not reported, since discordance with absolute values may lead to misinterpretation of CBC data. Current Interpretive Data was last revised on 2017. Testing performed by: [facility], [address] [place] [phone] Monocyte pct 7.0 % [facility] Comment:Testing performed by : [facility], [address] [place] [phone] Eosinophil pct 1.1 % [facility] Comment:Testing performed by : [facility], [address] [place] [phone] Basophil pct 0.5 % [facility] Comment:Testing performed by : [facility], [address] [place] [phone] Blood 08/25/2022 9:51 AM CDT 08/25/2022 9:55 AM CDT Gautam Cope MD LAB BLOOD ORDERABLES Final Resul t Performing Organization Address City/[facility]/ZIP Co de Phone Number [facility] [place] [address] * Lactate dehydrogenase (LD) (08/25/2022 9:51 AM CDT) Lactate dehydrogenase (LDH) 174 100 - 250 Units/L [facility] Comment:Testing performed by : [facility], [address] [place] [phone] Blood 08/25/2022 9:51 AM CDT 08/25/2022 9:55 AM CDT us Gautam Cope MD LAB BLOOD ORDERABLES Final Resul t Performing Organization Address City/[facility]/ZIP Co de Phone Number [facility] [place] [address] * (ABNORMAL) CBC with auto differential (08/25/2022 9:51 AM CDT) WBC 12.6(H) 3.8 - 9.8 K/cumm [facility] Comment:Testing performed by : [facility], [address] [place], [place] [phone] Hgb 12.6(L) 13.8 - 17.2 g/dL [facility] Comment:Testing performed by : [facility], [address] [place], [place] [phone] Hct 38.8(L) 40.7 - 50.3 % [facility] Comment:Testing performed by : [facility], [address] [place] [address] Plt 338 140 - 440 K/cumm [facility] Comment:Testing performed by : [place] [phone] MPV 7.6 6.8 - 10.4 fL [facility] Comment:Testing performed by : [place] [phone] RBC 4.36(L) 4.50 - 5.70 M/cumm [facility] Comment:Testing performed by : [place] [phone] MCV 89.0 80.0 - 97.6 fL [facility] Comment:Testing performed by : [place] [id number] MCH 28.8 26.7 - 33.7 pg [facility] Comment:Testing performed by : [place] [phone] MCHC 32.4(L) 32.7 - 35.5 g/dL [facility] Comment:Testing performed by : [place] [phone] RDW CV 14.8(H) 11.8 - 14.6 % [facility] Comment:Testing performed by : [place] [id number] NRBC abs 0.01 0.00 - 0.01 K/cumm [facility] Comment:Testing performed by : [facility], [address] [place] [phone] Blood 08/25/2022 9:51 AM CDT 08/25/2022 9:55 AM CDT us Gautam Cope MD LAB BLOOD ORDERABLES Final Resul t [facility] Department [place] [address] * (ABNORMAL) Comprehensive metabolic panel (08/25/2022 9:51 AM CDT) Sodium 142 135 - 145 mmol/L [facility] Comment:Testing performed by : [facility], [address] [place] [phone] Potassium, pl 4.8 3.3 - 4.9 mmol/L [facility] Comment:Testing performed by : [facility], [address] [place] [phone] Chloride 103 97 - 110 mmol/L [facility] Comment:Testing performed by : [address] [phone] CO2 30 22 - 32 mmol/L [facility] Comment:Testing performed by : [facility], [address] [place] [phone] Anion gap 9 2 - 15 mmol/L [facility] Comment:Testing performed by : [facility], [address] [place] [phone] BUN 29(H) 8 - 25 mg/dL [facility] Comment:Testing performed by : [facility], [address] [place] [phone] Creatinine 1.92(H) 0.80 - 1.30 mg/dL [facility] Comment:Testing performed by : [facility], [address] [place] [phone] Glucose 166 70 - 199 mg/dL [facility] Comment: [...] was last revised 2022. Testing performed by: [facility], [address] [place] [phone] Calcium 9.6 8.5 - 10.3 mg/dL [facility] Comment:Testing performed by : [address] [phone] Bilirubin, total 0.5 0.1 - 1.2 mg/dL [facility] Comment:Testing performed by : [address] [phone] Protein, pl 6.9 6.5 - 8.5 g/dL [facility] Comment:Testing performed by : [facility], [address] [place] [phone] Albumin 4.2 3.5 - 5.0 g/dL [facility] Comment:Testing performed by : [address] [phone] Alk phos 123 40 - 130 Units/L [facility] Comment:Testing performed by : [address] [phone] ALT 11 7 - 55 Units/L [facility] Comment:Testing performed by : [address] [phone] AST 12 10 - 50 Units/L [facility] Comment:Testing performed by : [address] [phone] Blood 08/25/2022 9:51 AM CDT 08/25/2022 9:55 AM CDT us Gautam Cope MD LAB BLOOD ORDERABLES Final Resul t [facility] Department [place] [address] * PSA diagnostic (08/25/2022 9:51 AM CDT) PSA-Total <0.02 <=6.20 ng/mL [facility] [...] Current interpretive data last revised 21. Blood 08/25/2022 9:51 AM CDT 08/25/2022 10:15 AM CDT us Gautam Cope MD LAB BLOOD ORDERABLES Final Resul t [facility] Department [place] [address] documented in this encounter Visit Diagnoses Diagnosis Prostate cancer (HCC) Malignant neoplasm of prostate documented in this encounter Care Teams Wave Solder Offbearer Relationship Specialty Start Date End Date Kraig Ching MD [address] [facility] [address] [place] [address] PCP - General 07/10/16 Gautam Cope MD [address] [facility] [address] [place] [address] Medical Oncologist/Minesweeping Officer Medical Oncology 08/18/18 Tramaine Roe MD [address] [facility] [address] [place] [address] Referring Physician Urology 08/18/18 Sukhwinder Uribe MD [address] [facility] [address] [place] [address] Consulting Physician Urology 08/18/18 Shay Guillermo MD [address] [facility] [address] [place] [address] Referring Physician Urology 08/18/18 Marsha Landis, RN Registered Nurse 11/17/18 documented as of this encounter
--- OUTSIDE RECORDS SUMMARY | 2024-03-31 04:55 | XMS_ITS | Encounter Summary ---
Author Organization [facility] Address [address] [place] [address] Care Team Providers Care Printer Slotter Feeder Name Role Phone Kraig Ching MD Primary Care Provider [phone] Gautam Cope MD Unavailable Tramaine Roe MD Unavailable [phone] Sukhwinder Uribe MD Unavailable [phone] Shay Guillermo MD Unavailable Marsha Landis RN Unavailable Unavailab le Reason for Referral * Consultation (Routine) - Closed Specialty Diagnoses / Procedures Referred By Contulices t Referred To Contact Ophthalmology Diagnoses Cataract of both eyes, unspecified cataract type Kraig Ching MD [address] [facility] [address] [place] [address] Phone: tel: fax: Lindsay Son MD [address] [facility] [address] [place] [address] Phone: tel: fax: Referral ID Status Reason Start Date Expiration Date V isits Requested Visits Authorized [id number] Closed Specialty Services Required 08/18/2022 09/17/2023 6 6 Question Answer Please select the performing region: [facility] (All Locations) [[id number]] To provider: LINDSAY SON [[id number]] # of visits: 6 Encounter Details Date Type Department Care Team (Late st Contact Info) Description 08/18/2022 11:45 AM CDT Office Visit [facility] [address] [place] [id number] Kraig Ching MD [address] [facility] [address] [place] [address] Hypertensive kidney disease with stage 3a chronic kidney disease (HCC) (Primary Dx); Type 2 diabetes mellitus with stage 3a chronic kidney disease, with long-term current use of insulin (HCC); Hyperlipidemia associated with type 2 diabetes mellitus (HCC); Gastroesophageal reflux disease, unspecified whether esophagitis present; Chronic bilateral low back pain with bilateral sciatica; Allergy to statin medication; Cataract of both eyes, unspecified cataract type Social History Tobacco Use Types Packs/Day Years Used Date Smoking Tobacco: Former Smokeless Tobacco: Never Tobacco Cessation:Counseling Given: Not [...] on file 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 Gender Identity Not on file Sexual Orientation Not on file documented as of this encounter Last Filed Vital Signs Vital Sign Reading Time Taken Comments Blood Pressure 134/76 08/18/2022 11:43 AM CDT Pulse 84 08/18/2022 11:43 AM CDT Temperature - - Respiratory Rate 21 08/18/2022 11:43 AM CDT Oxygen Saturation 95% 08/18/2022 11:43 AM CDT Inhaled Oxygen Concentration - - Weight 101.6 kg (224 lb) 08/18/2022 11:43 AM CDT Height 177.8 cm (5' 10 ) 08/18/2022 11:43 AM CDT Body Mass Index 32.14 08/18/2022 11:43 AM CDT documented in this encounter Progress Notes * Kraig Ching MD - 08/18/2022 11:45 AM CDT Subjective/Objective Patient ID: David Wei is a 81 y.o. male. Chief Complaint Hypertension HPI 1.HTN. He is prescribed amlodipine,carvedilol,lisimopril and chlorthalidone. He stopped amlodipine as he did not notice benefit to his blood pressure. 2.Diabetes. He is prescribed Lantus insulin.He reports compliance with oral medications. His [id number] 7.9. today. His morning glucose was 80.Diabetes is complicated by hyperlipidemia. He is prescribed pravastatin. He is intolerant of atorvastatin. He is taking prednisone daily for prostate cancer.Diabetes is complciated by CKD. His creatinine was 2.27 on 07/16/22. 3.GERD. GERD symptoms are controlled on pantoprazole. 4.Back Pain. 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 He notes frequent back pain and difficulty getting to the bathroom.He uses oxycodone as needed. 5.Cataracts. He has cataracts in both eyes and notes glare. He follows with optometry and would like to see someone at [facility]. Review of Systems Constitutional: Negative for fatigue. HENT: Negative for sore throat. Respiratory: Negative for shortness of breath. Cardiovascular: Negative for chest pain. Gastrointestinal: Negative for abdominal pain. Musculoskeletal: Positive for back pain. Skin: Negative for rash. Neurological: Negative for dizziness. Psychiatric/Behavioral: Positive for sleep disturbance. BP 134/76 (BP Location: Left arm, Patient Position: Sitting) Pulse 84 Resp 21 Ht 177.8 cm (5'10 ) Wt 101.6 kg (224 lb) SpO2 95% BMI 32.14 kg/m?? Physical Exam Constitutional: Appearance: He is [...] Diagnoses and all orders for this visit: Hypertensive kidney disease with stage 3a chronic kidney disease (HCC) (I12.9, N18.31) (Primary) Assessment & Plan: Blood pressure is improved. Continue current regimen. Limit nephrotoxins. Monitor creatinine. AvoidNSAIDS. Type 2 diabetes mellitus with stage 3a chronic kidney disease, with long-term current use of insulin ([facility]) (E11.22, N18.31, Z79.4) Assessment & Plan: Continue current regimen. Orders: - Albumin Creatinine Ratio, Urine; Future - POCT hemoglobin A1c Hyperlipidemia associated with type 2 diabetes mellitus (HCC) (E11.69, E78.5) Assessment & Plan: HgbA1C improved to 7.9. Continue Insulin.Reviewed proper diet. Gastroesophageal reflux disease, unspecified whether esophagitis present (K21.9) Assessment & Plan: Reviewed dietary modifications. Continue PPI. 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 Continue home PT exercises. Advised using a walker. Allergy to statin medication (Z88.8) Cataract of both eyes, unspecified cataract type (H26.9) - Ambulatory referral to Ophthalmology; Future documented in this encounter Miscellaneous Notes * Assessment & Plan Note - Kraig Ching MD - 08/18/2022 12:03 PM CDT Associated Problem(s): Type 2 diabetes mellitus without complication, with long-term current use ofinsulin ([facility]/HCC) (HCC) (Resolved 10/02/2023) Continue current regimen. * Assessment & Plan Note - Kraig Ching MD - 08/18/2022 11:54 AM CDT Associated Problem(s): Hypertensive kidney disease with chronic kidney disease stage III ([facility]) Blood pressure is improved. Continue current regimen. Limit nephrotoxins. Monitor creatinine. AvoidNSAIDS. * Assessment & Plan Note - Kraig Ching MD - 08/18/2022 11:53 AM CDT Associated Problem(s): Hyperlipidemia associated with type 2 diabetes mellitus ([facility]) HgbA1C improved to 7.9. Continue Insulin.Reviewed proper diet. * Assessment & Plan Note - Kraig Ching MD - 08/18/2022 6:35 AM CDT Associated Problem(s): Gastroesophageal reflux disease Reviewed dietary modifications. Continue PPI. * Assessment & Plan Note - Kraig Ching MD - 08/18/2022 6:35 AM CDT Associated Problem(s): Chronic bilateral low back pain with bilateral sciatica Continue oxycodone. Continue home PT exercises. Advised using a walker. documented in this encounter Plan of Treatment Scheduled Referrals Name Type Priority Associated Diagnoses Order Schedule Ambulatory referral to Ophthalmology Outpatient Referral Routine Cataract of both eyes, unspecified cataract type Expected: 09/01/2022 (Approximate), Expires: 08/19/2023 documented as of this encounter Goals Goal [...] Chronic Care Management No change(03/23 1:[address] ENGINEER) No Ingrid Oden, SHEA Note: Problem: Chronic Pain Goals: 1. Minimize further functional decline 2. Maximize quality of life 3. Control pain Strategies: - Activity/exercise program recommendation - Conservative stepwise pain medicine strategy with multi-disciplinary approach - Recommend healthy lifestyle strategies and compensatory methods as needed documented as of this encounter Procedures Procedure Name Priority Date/Time Associated Diagnosis Comments POCT HEMOGLOBIN A1C Routine 08/18/2022 1 1:50 AM CDT Type 2 diabetes mellitus with stage 3a chronic kidney disease, with long-term current use of insulin (HCC) documented in this encounter Results * (ABNORMAL) Albumin Creatinine Ratio, Urine (01/01/2023 10:40 AM CDT) Albumin Ur 227.3 mg/L [facility] Comment: Interpretive Data No reference range established. Current interpretive data was last revised 2018. Creatinine Ur 66.5 mg/dL [facility] Comment: Interpretive Data No reference range established. Current interpretive data was last revised 2018. Albumin Creatinine Ratio, Ur 342(H) 1 - 29 mg/g [facility] Urine 01/01/2023 10:4 0 AM CDT 01/01/2023 10:45 AM CDT Kraig Ching MD LAB URINE ORDERABLES Final Re sult [facility] [address] [facility] Department [place] [address] * (ABNORMAL) POCT hemoglobin A1c (08/18/2022 11:50 AM CDT) Hemoglobin A1C, POC 7.9 % Blood 08/18/2022 11:5 0 AM CDT Kraig Ching MD POINT OF CARE TEST ORDERABLES Final Result documented in this encounter Visit Diagnoses Diagnosis Hypertensive kidney disease with stage 3a chronic kidney disease (HCC)- Primary Type 2 diabetes mellitus with stage 3a chronic kidney disease, with long-term current use of insulin (HCC) Hyperlipidemia associated with type 2 diabetes mellitus (HCC) Gastroesophageal reflux disease, unspecified whether esophagitis present Chronic bilateral low back pain with bilateral sciatica Allergy to statin medication Cataract of both eyes, unspecified cataract type documented in this encounter Care Teams Printer Slotter Feeder Relationship Specialty Start Date End Date Kraig Ching MD [address] [facility] [address] [place] [address] PCP - General 07/10/16 Gautam Cope MD [id number] [place] [address] Medical Oncologist/Veterans Services Specialist Medical Oncology 08/18/18 Tramaine Roe MD [address] [address] Referring Physician Urology 08/18/18 Sukhwinder Uribe MD [address] [address] Consulting Physician Urology 08/18/18 Shay Guillermo MD [id number] [place] [address] Referring Physician Urology 08/18/18 Marsha Landis, RN Registered Nurse 11/17/18 documented as of this encounter
--- OUTSIDE RECORDS SUMMARY | 2024-03-31 04:55 | XMS_ITS | Encounter Summary ---
Author Organization [facility] Address [address] [place] [address] Phone Care Team Providers Care Contract Loader Name Role Phone Kraig Ching MD Primary Care Provider [phone] Gautam Cope MD Unavailable Tramaine Roe MD Unavailable [phone] Sukhwinder Uribe MD Unavailable [phone] Shay Guillermo MD Unavailable [phone] Marsha Landis RN Unavailable Unavailab le Reason for Visit * Reason Comments Injections Eligard * Episode Based Medications (Routine) - Authorized Specialty Diagnoses / Procedures Referred By Contac t Referred To Contact Oncology Diagnoses Prostate cancer (HCC) Procedures TX LEUPROLIDE ACETATE SUSPNSION Leuprolide Every 3 Months - Prostate Gautam Cope MD [address] [facility] [address] [place] [address] Phone: tel: fax: [facility] - Infusion [address] [facility] [address] [place] [address] Referral ID Status Reason Start Date Expiration Date V isits Requested Visits Authorized [id number] Authorized 09/06/2018 07/11/2024 1 50 Encounter Details Date Type Department Care Team (Late st Contact Info) Description 08/25/2022 11:45 AM CDT Infusion [facility] [facility] Advanced Medicine 7th [place] [address] Prostate cancer (HCC) (Primary Dx) Social History [...] on file 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 male who presents for the following injection: Eligard. Nursing Assessment Nursing Assessment Appetite: Good Diarrhea: No Constipation: No Last BM Date: 08/25/22 Existing Patients: Any falls since your last visit?: No Fatigue: Constant Mouth Sores: No Nausea/Vomiting: No Pain: Yes (herniated disk.) Peripheral Neuropathy: Yes (toes from Diabetes) Shortness of Breath?: Yes (off/on) Lungs auscultated PRN: No Pt is on oxygen?: No Respiratory Effort Characteristics: Dyspnea exertion Skin Condition/Temp: Warm, Dry Oral Mucosa Grade: Normal (0) Abdomen: Soft Swelling: No Additional Notes: herniated disk BP: 168/90 Temp: 36.6 ??C (97.8 ??F) Temp src: Transdermal Pulse: 66 Resp: 18 SpO2: 96 % Weight: 100.7 kg (222 lb) Patient: met treatment parameters David Wei tolerated injection well Additional Notes: given in left lower abdomen Discharge Plan Discharge instructions given to patient. Discharge Mode: wheelchair for stability Accompanied by: Self Discharged To: Home documented [...] Chronic Care Management No change(03/23 1:47 PM RESERVATION MANAGER) No Ingrid Oden, RN Note: Problem: [...] 22.5 mg 22.5 mg, subcutaneous, Once, On Wed08/25/22 at 1100, For 1 dose, For subcutaneous use only. Allow product to reach room temperature before using.Indications:Prosta te cancer (HCC) Given 08/25/2022 10:48 AM CDT 22.5 mg Left Lower Abdomen documented in this encounter Orders Nursing Count Last Ordered Date First Orde red Date ONCBCN TREATMENT PARAMETERS 2 1 08/25/2022 Appointment Requests Count Last Ordered Date Fi rst Ordered Date ONCBCN INJECTION APPOINTMENT REQUEST 1 08/10 documented in this encounter Care Teams Contract Loader Relationship Specialty Start Date End Date Kraig Ching MD [address] [place] [address] PCP - General 07/10/16 Gautam Cope MD [address] [facility] [address] [address] [place] [address] Medical Oncologist/Air Conditioning Installer Medical Oncology 08/18/18 Tramaine Roe MD [address] [facility] [address] [place] [address] Referring Physician Urology 08/18/18 Sukhwinder Uribe MD [address] [facility] [address] [place] [address] Consulting Physician Urology 08/18/18 Shay Guillermo MD [address] [address] Referring Physician Urology 08/18/18 Marsha Landis RN Registered Nurse 11/17/18 documented as of this encounter
--- OUTSIDE RECORDS SUMMARY | 2024-03-31 04:55 | XMS_ITS | Encounter Summary ---
Author Organization [facility] Address [address] [place] [address] Care Team Providers Care Multimedia Educational Specialist Name Role Phone Kraig Ching MD Primary Care Provider [phone] Gautam Cope MD Unavailable Tramaine Roe MD Unavailable Sukhwinder Uribe MD Unavailable [phone] Shay Guillermo MD Unavailable [phone] Marsha Landis RN Unavailable Unavailab le Reason for Visit * Reason Onset Date Comments Covid-19 Home Monitoring 06/24/2022 Encounter Details Date Type Department Care Team (Late st Contact Info) Description 06/24/2022 Telephone [facility] Accountable Care Organization [address] [place] [address] Priyanka Lynch [address] [place] [address] Covid-19 Home Monitoring Social History Tobacco Use Types Packs/Day Years [...] on file 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 Gender Identity Not on file Sexual Orientation Not on file documented as of this encounter Last Filed Vital Signs Vital Sign Reading Time Taken Comments Blood Pressure - - Pulse - - Temperature - - Respiratory Rate - - Oxygen Saturation 95% 06/24/2022 3:02 PM CDT Inhaled Oxygen Concentration - - Weight - - Height - - Body Mass Index - - documented in this encounter Miscellaneous Notes * Telephone Encounter - Manny Metz RN - 06/24/2022 3:20 PM CDT 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 Ptconfirm sob with exertion that improves with rest and some wheezing. Pt advised on sob with exertion that doesn't improve with rest and sob at rest. Pt has albuterol inhaler and is using. Pt denies any immediate needs - pt is comfortable monitoring symptoms - pt denies need for virtual visit. warp scouring vat tender of each of the following symptoms the patient reported (complete all that apply): Respiratory Distress: No Dehydration: No Fever: No Chest Pain: No Other symptoms: No Instructions provided to patient: pts reports that pts sob is worse and he is wheezing. Pt confirm sob with exertion that improves with rest and some wheezing. Pt advised on sob with exertion that doesn't improve with rest and sob at rest. Pt has albuterol inhaler and is using. Pt denies any immediate needs - pt is comfortable monitoring symptoms - pt denies need for virtual visit. Follow-up Plan Provided to Patient: Continue to Self-Monitor.COVID-19 Home Monitoring Flowsheet Answers: Temp/Pulse Ox Temp: (no fever) SpO2: 95 % Symptom Monitoring Are you feeling short of breath today?: Yes Shortness of Breath Details:: Worse Are you having a cough today?: Yes Cough Details:: Same Are you experiencing weakness today?: Yes Weakness Details:: Same How is your appetite compared to yesterday?: Unchanged Are you vomiting?: No Are you experiencing diarrhea? : No * Telephone Encounter - Priyanka Lynch MA - 06/24/2022 3:05 PM CDT This patient has enrolled in the PHONE ONLY version of COVID-19 Home Monitoring Program. COVID-19 Symptom questionnaire was completed today. Symptoms were addressed to be Moderate. Escalation was needed. Type of escalation provided: Referred for RN follow-up call Next Program Call Due: 06/25 COVID-19 Home Monitoring Flowsheet Answers: Temp/Pulse Ox Temp: (no fever) SpO2: 95 % Symptom Monitoring Are you feeling short of breath today?: Yes Shortness of Breath Details:: Worse Are you having a cough today?: Yes Cough Details:: Same Are you experiencing weakness today?: Yes Weakness Details:: Same How is your appetite compared to yesterday?: Unchanged Are you vomiting?: No Are you experiencing diarrhea? : No * Telephone Encounter - Priyanka Lynch MA - 06/24/2022 10:28 AM CDT COVID Home Monitoring Unable to Reach Called patient for home monitoring MA assessment Unable to reach patient. Patient will receive follow up call today documented in this encounter Plan of Treatment [...] Chronic Care Management No change(03/23 1:47 PM CHILD CARE SUPERVISOR) No Ingrid Oden, SHEA Note: Problem: Chronic Pain Goals: 1. Minimize further functional decline 2. Maximize quality of life 3. Control pain Strategies: - Activity/exercise program recommendation - Conservative stepwise pain medicine strategy with multi-disciplinary approach - Recommend healthy lifestyle strategies and compensatory methods as needed documented as of this encounter Visit Diagnoses Not on filedocumented in this encounter Care Teams Multimedia Educational Specialist Relationship Specialty Start Date End Date Kraig Ching MD [address] [facility] [address] [place] [address] PCP - General 07/10/16 Gautam Cope MD [id number] [place] [address] Medical Oncologist/Creative Specialist Medical Oncology 08/18/18 Tramaine Roe MD [id number] [place] [address] Referring Physician Urology 08/18/18 Sukhwinder Uribe MD [address] [facility] [address] [place] [address] Consulting Physician Urology 08/18/18 Shay Guillermo MD [address] [facility] [address] [place] [address] Referring Physician Urology 08/18/18 Marsha Landis RN Registered Nurse 11/17/18 documented as of this encounter
--- OUTSIDE RECORDS SUMMARY | 2024-03-31 04:55 | XMS_ITS | Encounter Summary ---
Author Organization [facility] Address [address] [facility] [address] [place] [address] Care Team Providers Care Mixer Operator Hot Metal Name Role Phone Kraig Ching MD Primary Care Provider [phone] Gautam Cope MD Unavailable Tramaine Roe MD Unavailable [phone] Sukhwinder Uribe MD Unavailable [phone] Shay Guillermo MD Unavailable [phone] Marsha Landis RN Unavailable Unavailab le Reason for Visit * Reason Onset Date Comments Covid-19 Home Monitoring 07/02/2022 Encounter Details Date Type Department Care Team (Late st Contact Info) Description 07/02/2022 Telephone [facility] Accountable Care Organization [address] [place] [address] Priyanka Lynch [address] [place] [address] Covid-19 Home Monitoring Social History Tobacco Use [...] on file 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 COVID-19 Symptom questionnaire was completed today. Symptoms were addressed to be Mild. Escalation was not needed. This patient is being disenrolled from the phone-only version of the COVID-19 home monitoring program for the following reason: Complete The patient has either completed the full 14-day program or has expressed 3 days of improved or no symptoms and 7 days since initial onset. We recommend that they are scheduled for a telemedicine evaluation with a primary care provider within 3 days of completion of the program. For questions or concerns about the home monitoring program, please contact . * Telephone Encounter - Priyanka Lynch MA - 07/02/2022 9:37 AM CDT COVID Home Monitoring Unable to Reach Called patient for home monitoring MANNIE assessment Unable to reach patient. Patient will [...] to monitor diabetes and kidney status, etc. [facility] Chronic Pain Care Plan Chronic Care Management No change(03/23 1:47 PM APPLE PEELER OPERATOR) No Ingrid Oden, SHEA Note: Problem: Chronic Pain Goals: 1. Minimize further functional decline 2. Maximize quality of life 3. Control pain Strategies: - Activity/exercise program recommendation - Conservative stepwise pain medicine strategy with multi-disciplinary approach - Recommend healthy lifestyle strategies and compensatory methods as needed documented as of this encounter Visit Diagnoses Not on filedocumented in this encounter Care Teams Mixer Operator Hot Metal Relationship Specialty Start Date End Date Kraig Ching MD [address] [facility] [address] [place] [address] PCP - General 07/10/16 Gautam Cope MD [address] [facility] [address] [place] [address] Medical Oncologist/Callisthenics Instructor Medical Oncology 08/18/18 Tramaine Roe MD [address] [facility] [address] [place] [address] Referring Physician Urology 08/18/18 Sukhwinder Uribe MD [address] [facility] [address] [place] [address] Consulting Physician Urology 08/18/18 Shay Guillermo MD [address] [facility] [address] [place] [address] Referring Physician Urology 08/18/18 Marsha Landis, RN Registered Nurse 11/17/18 documented as of this encounter
--- OUTSIDE RECORDS SUMMARY | 2024-03-31 04:55 | XMS_ITS | Encounter Summary ---
Author Organization [facility] Address [address] [place] [address] Care Team Providers Care Conventional Underwriter Name Role Phone Kraig Ching MD Primary Care Provider [phone] Gautam Cope MD Unavailable Tramaine Roe MD Unavailable [phone] Sukhwinder Uribe MD Unavailable [phone] Shay Guillermo MD Unavailable [phone] Marsha Landis RN Unavailable Unavailab le Reason for Visit * Reason Onset Date Comments Covid-19 Home Monitoring 06/29/2022 Re-enro antonio Encounter Details Date Type Department Care Team (Late st Contact Info) Description 06/29/2022 Telephone [facility] Accountable Care Organization [address] [place] [address] Priyanka Lynch, [address] [facility] [address] [place] [address] Covid-19 Home Monitoring (Re-enrollment ) Social History Tobacco Use Types Packs/Day [...] on file 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 The patient was contacted via phone for enrollment in the program. The patient has declined to participate in the automated MyChart Fence Maker Program, but has verbally agreed to the Phone Only Home Monitoring Program, which includes being contacted for a daily phone assessment by a [facility]/ staff member. The patient was informed that [...] the phone only version of the program. Re-enrollment during 's symptom check. documented in this encounter Plan of Treatment [...] to monitor diabetes and kidney status, etc. [facility] Chronic Pain Care Plan Chronic Care Management No change(03/23 1:47 PM SHAREPOINT WEB DEVELOPER) No Ingrid Oden, SHEA Note: Problem: Chronic Pain Goals: 1. Minimize further functional decline 2. Maximize quality of life 3. Control pain Strategies: - Activity/exercise program recommendation - Conservative stepwise pain medicine strategy with multi-disciplinary approach - Recommend healthy lifestyle strategies and compensatory methods as needed documented as of this encounter Visit Diagnoses Not on filedocumented in this encounter Care Teams Conventional Underwriter Relationship Specialty Start Date End Date Kraig Ching MD [address] [facility] [address] [place] [address] PCP - General 07/10/16 Gautam Cope MD [address] [facility] [address] [place] [address] Medical Oncologist/Sewer Inspector Medical Oncology 08/18/18 Tramaine Roe MD [address] [facility] [address] [place] [address] Referring Physician Urology 08/18/18 Sukhwinder Uribe MD [address] [facility] [address] [place] [address] Consulting Physician Urology 08/18/18 Shay Guillermo MD [address] [facility] [address] [place] [address] Referring Physician Urology 08/18/18 Marsha Landis, RN Registered Nurse 11/17/18 documented as of this encounter
--- OUTSIDE RECORDS SUMMARY | 2024-03-31 04:55 | XMS_ITS | Encounter Summary ---
Author Organization [facility] Address [address] [facility] [address] [place] [address] Care Team Providers Care Real Estate Management Specialist Name Role Phone Kraig Ching MD Primary Care Provider [phone] Gautam Cope MD Unavailable Tramaine Roe MD Unavailable [phone] Sukhwinder Uribe MD Unavailable [phone] Shay Guillermo MD Unavailable [phone] Marsha Landis RN Unavailable Unavailab le Reason for Visit * Reason Onset Date Comments Covid-19 Home Monitoring 06/26/2022 Encounter Details Date Type Department Care Team (Late st Contact Info) Description 06/26/[address] 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 COVID-19 Symptom questionnaire was not completed today, because the patient declined to answer the questionnaire. Patient's unable to answer questionnaire, prefers call back tomorrow. Next Program Call Due: 06/27 * Telephone Encounter - Priyanka Lynch MA - 06/26/2022 9:42 AM CDT COVID Home Monitoring Unable to [...] monitor diabetes and kidney status, etc. [facility] Chronic Pain Care Plan Chronic Care Management No change(03/23 1:47 PM ZIG ZAG SPRING MACHINE OPERATOR) No Ingrid Oden RN Note: Problem: Chronic Pain Goals: 1. Minimize further functional decline 2. Maximize quality of life 3. Control pain Strategies: - Activity/exercise program recommendation - Conservative stepwise pain medicine strategy with multi-disciplinary approach - Recommend healthy lifestyle strategies and compensatory methods as needed documented as of this encounter Visit Diagnoses Not on filedocumented in this encounter Care Teams Real Estate Management Specialist Relationship Specialty Start Date End Date Kraig Ching MD [address] [facility] [address] [place] [address] PCP - General 07/10/16 Gautam Cope MD [address] [facility] [address] [place] [address] Medical Oncologist/Freight Sorter Medical Oncology 08/18/18 Tramaine Roe MD [address] [facility] [address] [place] [address] Referring Physician Urology 08/18/18 Sukhwinder Uribe MD [address] [facility] [address] [place] [address] Consulting Physician Urology 08/18/18 Shay Guillermo MD [address] [facility] [address] [place] [address] Referring Physician Urology 08/18/18 Marsha Landis, RN Registered Nurse 11/17/18 documented as of this encounter
--- OUTSIDE RECORDS SUMMARY | 2024-03-31 04:55 | XMS_ITS | Encounter Summary ---
Author Organization [facility] [employer] [facility] Address [address] [place] [address] Phone Care Team Providers Care Panelboard Tank Pumper Name Role Phone Kraig Ching MD Primary Care Provider [phone] Gautam Cope MD Unavailable Tramaine Roe MD Unavailable [phone] Sukhwinder Uribe MD Unavailable Shay Guillermo MD Unavailable [phone] Marsha Landis RN Unavailable Unavailab le Reason for Visit * Consultation (Routine) - Authorized Specialty Diagnoses / Procedures Referred By Saleem narvaez Referred To Contact Oncology Diagnoses Prostate cancer (HCC) Tramaine Roe MD [address] [facility] [address] [place] [address] Phone: tel: fax: Gautam Cope MD [address] [facility] [address] [facility] [place] [address] Phone: tel: fax: Referral ID Status Reason Start Date Expiration Date Visits Requested Visits Authorized [id number] Authorized Specialty Services Required 08/15/2018 04/11/2024 99 99 Encounter Details Date Type Department Care Team (Late st Contact Info) Description 08/25/2022 10:00 AM CDT Lab [facility] Oncology [address] [facility] 7th [place] [address] [place] [address] Prostate cancer (HCC) Social History [...] on file 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 Gender Identity Not on file Sexual Orientation [...] Chronic Care Management No change(03/23 1:47 PM UNDERWATER TRAPPER) No Ingrid Oden, SHEA Note: Problem: Chronic [...] rst Ordered Date ONCBCN LAB APPOINTMENT 1 08/25/2022 documented in this encounter Care Teams Panelboard Tank Pumper Relationship Specialty Start Date End Date Kraig Ching MD [address] [place] [address] PCP - General 07/10/16 Gautam Cope MD [address] [place] [address] Medical Oncologist/Real Estate Asset Manager Medical Oncology 08/18/18 Tramaine Roe MD [address] [place] [address] Referring Physician Urology 08/18/18 Sukhwinder Uribe MD [address] [facility] [address] [place] [address] Consulting Physician Urology 08/18/18 Shay Guillermo MD [address] [facility] [address] [place] [address] Referring Physician Urology 08/18/18 Marsha Landis, RN Registered Nurse 11/17/18 documented as of this encounter
--- OUTSIDE RECORDS SUMMARY | 2024-03-31 04:55 | XMS_ITS | Encounter Summary ---
Author Organization [facility] [employer] [facility] Address [address] [place] [address] Phone Care Team Providers Care Baggage And Mail Agent Name Role Phone Kraig Ching MD Primary Care Provider [phone] Gautam Cope MD Unavailable Tramaine Roe MD Unavailable [phone] Sukhwinder Uribe MD Unavailable [phone] Shay Guillermo MD Unavailable [phone] Marsha Landis RN Unavailable Unavailab le Reason for Visit * Reason Comments Health Maintenance * Diagnostic Imaging (Routine) - Closed Specialty Diagnoses / Procedures Referred By Contac t Referred To Contact Diagnoses Prostate cancer (HCC) Procedures Dexa Axial Skeleton Bone Density 1 or 2 Site Gautam Cope MD [address] [facility] [address] [place] [address] Phone: tel: fax: [address] [address] Referral ID Status Reason Start Date Expiration Date Visits Re quested Visits Authorized [id number] Closed 03/10/2022 04/09/2023 1 1 Encounter Details Date Type Department Care Team (Latest Contact Info) Description 06/10/2022 2:30 PM HAND EDGER Clinical Support [facility] [address] [facility] 5[address] [place] [address] [place] [address] Prostate cancer (CMS/HCC) (HCC); Androgen deprivation therapy; Current chronic use of systemic steroids Social History Tobacco Use Types Packs/Day Years [...] file 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 [facility] Chronic Pain Care Plan Chronic Care Management No change(03/23 1:47 PM HAND EDGER) No Ingrid Oden RN Note: Problem: Chronic Pain Goals: 1. Minimize further functional decline 2. Maximize quality of life 3. Control pain Strategies: - Activity/exercise program recommendation - Conservative stepwise pain medicine strategy with multi-disciplinary approach - Recommend healthy lifestyle strategies and compensatory methods as needed documented as of this encounter Procedures Procedure Name Priority Date/Time Associated Diagnosis Comments DEXA AXIAL SKELETON BONE DENSITY 1 OR MORE SITES Schedule Routine, Read Routine (OP Routine) 06/10/2022 2:42 PM HAND EDGER Prostate cancer (CMS/HCC) (HCC) documented in this encounter Results * Dexa Axial Skeleton Bone Density 1 or 2 Site (06/10/2022 2:42 PM HAND EDGER) Anatomical Region Laterality Modality Body N/A Radiographic Roberta ging Narrative 06/10/2022 3:17 PM HAND EDGER Patient Name: David Wei Date of : 1940 Date of scan: 06/10/2022 Bone mineral density was performed on a [employer]otiant Discovery Densitometer. ?? Based on machine cross-calibration and precision studies the least significant changes of this densitometer is 0.024 g/cm2 at the spine, 0.020 g/cm2 at the total proximal femur, and 0.014g/cm2 at the forearm. HISTORY: This is a 81 y.o. male with a history of prostate cancer. He reports that he has quit smoking. He has never used smokeless tobacco. Currently on treatment with calcium, vitamin D, glucocorticoids, and androgen deprivation therapy and current complaint of back pain. INDICATIONS: Treatment monitoring, currently on 10 mg glucocorticoids for the past 3 years, androgen deprivation therapy, and male over age 70. FINDINGS: BONE MINERAL DENSITY OF THE LUMBAR SPINE Bone Mineral Density (BMD) of the lumbar spine was measured from L1-L4 and the average density was calculated to be 1.494 gm/cm2. This corresponds to a T-score (standard deviations from the mean of young adults) of 3.7. When compared to the previous study of 01/30/2020 there has been a -0.037 gm/cm (-2.4%) decrease in bone density that is considered significant. BONE MINERAL DENSITY OF THE PROXIMAL FEMUR Bone Mineral Density (BMD) of the left hip total was found to be 1.030 gm/cm2. This corresponds to a T-score standard deviations from the mean of young adults of 0.0. Femoral neck is 0.846 gm/cm2 with a T-score (standard deviations from the mean of young adults) of -0.6. When compared to the previous study of 01/30/2020 there has been a -0.068 gm/cm (-6.2%) decrease in bone density that is considered significant. BONE MINERAL DENSITY OF THE FOREARM Bone Mineral density (BMD) of the right proximal 1/3 of the radius measures 0.839 gm/cm2. This corresponds to a T-score (standard deviations from the mean of young adults) of 0.4. There is no previous study available for comparison. A forearm bone density study was performed in addition to the routine study because of forearm protocol. ?? SUMMARY: Bone mineral density is near the young adult normal mean with no increased risk for fracture. There has been a significant decrease in bone density since previous measurement. ADDITIONAL COMMENTS: Postmenopausal Women and Men Over 50: Diagnostic criteria: Osteoporosis: BMD at or below -2.5 T-score; Osteopenia (low bone mass): BMD between -1.0 and -2.5 T-score. If the patient has a history of a fragility fracture, a fracture that occurred with trauma equivalent to a fall from a standing position or less, then the diagnosis is osteoporosis regardless of bone density. The history and data sections of the bone mineral density scan were prepared by Sommer Tucker)(Zayda)() CBDT who is accredited by the International Society of Clinical Densitometry. The overall patient assessment and scan interpretation were performed by Dionna Peng MD who is certified by the International Society of Clinical Densitometry. [id number] Gautam Cope MD IMG DXA PROCEDURES Final Result documented in this encounter Visit Diagnoses Diagnosis Prostate cancer (HCC) Malignant neoplasm of prostate Androgen deprivation therapy Current chronic use of systemic steroids documented in this encounter Care Teams Baggage And Mail Agent Relationship Specialty Start Date End Date Kraig Ching MD [address] [place] [address] PCP - General 07/10/16 Gautam Cope MD [address] [place] [address] Medical Oncologist/Childcare Teacher Medical Oncology 08/18/18 Tramaine Roe MD [address] [place] [address] Referring Physician Urology 08/18/18 Sukhwinder Uribe MD [address] [place] [address] Consulting Physician Urology 08/18/18 Shay Guillermo MD [address] [place] [address] Referring Physician Urology 08/18/18 Marsha Landis, RN Registered Nurse 11/17/18 documented as of this encounter
--- OUTSIDE RECORDS SUMMARY | 2024-03-31 04:55 | XMS_ITS | Encounter Summary ---
Author Organization [facility] Address [address] [facility] [address] [place] [address] Care Team Providers Care Mold Stripper Name Role Phone Kraig Ching MD Primary Care Provider [phone] Gautam Cope MD Unavailable Tramaine Roe MD Unavailable [phone] Sukhwinder Uribe MD Unavailable [phone] Shay Guillermo MD Unavailable [phone] Marsha Landis RN Unavailable Unavailab le Reason for Visit * Reason Onset Date Comments Recommendation Request 07/07/2022 Encounter Details Date Type Department Care Team (Late st Contact Info) Description 07/07/2022 Telephone [facility] [address] [facility] [address] [place] [address] Kraig Ching MD [address] [facility] [address] [place] [address] Recommendation Request Social History Tobacco Use Types Packs/Day Years [...] on file 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 LVMS * Telephone Encounter - Comfort Salas - 07/07/2022 9:50 AM CDT Recommendation Request Note: This request is for a specialty recommendation, not an insurance referral. Specialty: eye doctor Why does the patient want to go to this specialist? Cataract surgery Caller's Callback #: [phone] Additional Comments/Concerns: Patient would like to establish with someone at the [facility] building. Does message need to be routed? Yes-Action [...] Chronic Care Management No change(03/23 1:47 PM ARTIFICIAL BREAST FABRICATOR) No Ingrid Oden, SHEA Note: Problem: Chronic Pain Goals: 1. Minimize further functional decline 2. Maximize quality of life 3. Control pain Strategies: - Activity/exercise program recommendation - Conservative stepwise pain medicine strategy with multi-disciplinary approach - Recommend healthy lifestyle strategies and compensatory methods as needed documented as of this encounter Visit Diagnoses Not on filedocumented in this encounter Care Teams Mold Stripper Relationship Specialty Start Date End Date Kraig Ching MD [address] [facility] [address] [place] [address] PCP - General 07/10/16 Gautam Cope MD [address] [facility] [address] [place] [address] Medical Oncologist/Centrex Radio Operator Medical Oncology 08/18/18 Tramaine Roe MD [address] [facility] [address] [place] [address] Referring Physician Urology 08/18/18 Sukhwinder Uribe MD [address] [facility] [address] [place] [address] Consulting Physician Urology 08/18/18 Shay Guillermo MD [address] [facility] [address] [place] [address] Referring Physician Urology 08/18/18 Marsha Landis, RN Registered Nurse 11/17/18 documented as of this encounter
--- OUTSIDE RECORDS SUMMARY | 2024-03-31 04:55 | XMS_ITS | Encounter Summary ---
Author Organization [facility] Address [address] [place] [address] Phone Care Team Providers Care Hasher Operator Name Role Phone Kraig Ching MD Primary Care Provider [phone] Gautam Cope MD Unavailable Tramaine Roe MD Unavailable [phone] Sukhwinder Uribe MD Unavailable Shay Guillermo MD Unavailable [phone] Marsha Landis RN Unavailable Unavailab le Encounter Details Date Type Department Care Team (Late st Contact Info) Description 11/10/2022 Telephone [facility] Ophthalmology [address] [place] [address] Higinio Connolly MD [address] 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 payroll manager. She called him to make surehe is using his glaucoma meds correctly - Timolol both eyes (OU) qAM and Latanoprost both eyes (OU)at bedtime (qhs). His visual abebe show diffuse depression both eyes (OU) along with mild inferiorarcuate changes left eye (OS). OCT testing was difficult to evaluate because of the quality of the image. Regardless, pt is a candidate for surgery and he wants to proceed. Will schedule left eye (OS) first. documented in this encounter Plan of Treatment [...] to monitor diabetes and kidney status, etc. [facility] Chronic Pain Care Plan Chronic Care Management No change(03/23 1:47 PM MIX MILL TENDER) No Ingrid Oden, SHEA Note: Problem: Chronic Pain Goals: 1. Minimize further functional decline 2. Maximize quality of life 3. Control pain Strategies: - Activity/exercise program recommendation - Conservative stepwise pain medicine strategy with multi-disciplinary approach - Recommend healthy lifestyle strategies and compensatory methods as needed documented as of this encounter Visit Diagnoses Not on filedocumented in this encounter Care Teams Hasher Operator Relationship Specialty [place] [address] [place] [address] [address] [place] [address] PCP - General 07/10/16 [place] [address] [place] [address] [address] [place] [address] Medical Oncologist/Senior Librarian Medical Oncology 08/18/18 [place] [address] [place] [address] [address] [place] [address] Referring Physician Urology 08/18/18 Sukhwinder Uribe MD [address] [facility] [address] [place] [address] Consulting Physician Urology 08/18/18 Shay Guillermo MD [address] [facility] [address] [place] [address] Referring Physician Urology 08/18/18 Marsha Landis RN Registered Nurse 11/17/18 documented as of this encounter
--- OUTSIDE RECORDS SUMMARY | 2024-03-31 04:55 | XMS_ITS | Encounter Summary ---
Author Organization [facility] Medical Group Address [address] [facility] [place] [address] Care Team Providers Care Wind Farm Engineer Name Role Phone Kraig Ching MD Primary Care Provider [phone] Gautam Cope MD Unavailable Tramaine Roe MD Unavailable [phone] Sukhwinder Uribe MD Unavailable [phone] Shay Guillermo MD Unavailable [phone] Marsha Landis RN Unavailable Unavailab le Reason for Visit * Reason Onset Date Comments Covid-19 Home Monitoring 06/27/2022 Encounter Details Date Type Department Care Team (Late st Contact Info) Description 06/27/2022 Telephone [facility] Accountable Care Organization [address] [place] [address] Janice Davidson RN [address] [place] [address] [address] [place] [address] Covid-19 Home Monitoring Social History Tobacco Use [...] on file 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 They will be discharged from the home monitoring program. If you believe the patient would benefit from ongoing monitoring, please have the patient contact the home monitoring program to re-enroll at . This patient has enrolled in the PHONE ONLY version of COVID-19 Home Monitoring Program. COVID-19 Symptom questionnaire was not completed today, because the patient could not be reached. Next Program Call Due: Patient is [facility] x 3 consecutive calls. No more attempts at outreach will be done. * Telephone Encounter - Janice Davidson RN - 06/27/2022 9:29 AM CDT COVID Home Monitoring Unable to [...] to monitor diabetes and kidney status, etc. [facility] Chronic Pain Care Plan Chronic Care Management No change(03/23 1:47 PM SCRAP BURNER) No Ingrid Oden, SHEA Note: Problem: Chronic Pain Goals: 1. Minimize further functional decline 2. Maximize quality of life 3. Control pain Strategies: - Activity/exercise program recommendation - Conservative stepwise pain medicine strategy with multi-disciplinary approach - Recommend healthy lifestyle strategies and compensatory methods as needed documented as of this encounter Visit Diagnoses Not on filedocumented in this encounter Care Teams Wind Farm Engineer Relationship Specialty Start Date End Date Kraig Ching MD [address] [facility] [address] [place] [address] PCP - General 07/10/16 Gautam Cope MD [id number] [place] [address] Medical Oncologist/Warehouse Shipping Clerk Medical Oncology 08/18/18 Tramaine Roe MD [address] [address] Referring Physician Urology 08/18/18 Sukhwinder Uribe MD [id number] [place] [address] Consulting Physician Urology 08/18/18 Shay Guillermo MD [id number] [place] [address] Referring Physician Urology 08/18/18 Marsha Landis, RN Registered Nurse 11/17/18 documented as of this encounter
--- OUTSIDE RECORDS SUMMARY | 2024-03-31 04:55 | XMS_ITS | Encounter Summary ---
Author Organization [facility] Medical Group Address [address] [facility] [address] [facility] [address] [place] [address] Care Team Providers Care Orthotics Assistant Name Role Phone Kraig Ching MD Primary Care Provider [phone] Gautam Cope MD Unavailable Tramaine Roe MD Unavailable [phone] Sukhwinder Uribe MD Unavailable [phone] Shay Guillermo MD Unavailable [phone] Marsha Landis RN Unavailable Unavailab le Reason for Visit * Reason Onset Date Comments Covid-19 Home Monitoring 06/25/2022 Encounter Details Date Type Department Care Team (Late st Contact Info) Description 06/25/2022 Telephone [facility] Accountable Care Organization [address] [place] [address] Priyanka Lynch [address] [place] [address] Covid-19 Home Monitoring Social History Tobacco Use [...] on file 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 COVID-19 Symptom questionnaire was not completed today, because the patient could not be reached. Next Program Call Due: 06/26 [facility] day 1 * Telephone Encounter - Priyanka Lynch MA - 06/25/2022 1:23 PM CDT COVID Home Monitoring Unable to Reach [...] monitor diabetes and kidney status, etc. [facility] Chronic Pain Care Plan Chronic Care Management No change(03/23 1:47 PM CELL ATTENDANT HELPER) No Ingrid Oden, SHEA Note: Problem: Chronic Pain Goals: 1. Minimize further functional decline 2. Maximize quality of life 3. Control pain Strategies: - Activity/exercise program recommendation - Conservative stepwise pain medicine strategy with multi-disciplinary approach - Recommend healthy lifestyle strategies and compensatory methods as needed documented as of this encounter Visit Diagnoses Not on filedocumented in this encounter Care Teams Orthotics Assistant Relationship Specialty Start Date End Date Kraig Ching MD [address] [facility] [address] [place] [address] PCP - General 07/10/16 Gautam Cope MD [address] [facility] [address] [place] [address] Medical Oncologist/Technical Support Agent Medical Oncology 08/18/18 Tramaine Roe MD [address] [facility] [address] [place] [address] Referring Physician Urology 08/18/18 Sukhwinder Uribe MD [address] [facility] [address] [place] [address] Consulting Physician Urology 08/18/18 Shay Guillermo MD [address] [facility] [address] [place] [address] Referring Physician Urology 08/18/18 Marsha Landis, RN Registered Nurse 11/17/18 documented as of this encounter
--- OUTSIDE RECORDS SUMMARY | 2024-03-31 04:55 | XMS_ITS | Encounter Summary ---
Author Organization [facility] [x+1] of [facility] Address [address] [place] [address] Phone Care Team Providers Care Acid Mixer Name Role Phone Kraig Ching MD Primary Care Provider [phone] Gautam Cope MD Unavailable Tramaine Roe MD Unavailable [phone] Sukhwinder Uribe MD Unavailable [phone] Shay Guillermo MD Unavailable [phone] Marsha Landis RN Unavailable Unavailab le Reason for Visit * Renal Disease (Routine) - Closed Specialty Diagnoses / Procedures Referred By Contulices t Referred To Contact Nephrology Diagnoses GABRIELA (acute kidney injury) (HCC) Stage 3 chronic kidney disease, unspecified whether stage 3a or 3b CKD (HCC) Kraig Ching MD [address] [facility] [address] [place] [address] Phone: tel: fax: Lin Guerrero MD [address] 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) Social History Tobacco Use Types Packs/Day [...] on file 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 Gender Identity Not on file Sexual Orientation Not on file documented as of this encounter Last Filed Vital Signs Vital Sign Reading Time Taken Comments Blood Pressure 149/90 07/22/2022 2:23 PM CDT Pulse 69 07/22/2022 11:35 AM CDT Temperature - - Respiratory Rate - - Oxygen Saturation - - Inhaled Oxygen Concentration - - Weight 100.6 kg (221 lb 11.2 oz) 2022 11:35 AM CDT Height 177.8 cm (5' 10 ) 07/22/2022 11: 35 AM CDT Body Mass Index 31.81 07/22/2022 11:35 AM CDT documented in this encounter Patient Instructions * Patient Instructions* Rja Faria MD - 07/22/2022 10:50 AM CDT Medication adherence is encouraged Monitor BP at home Obtain labs prior next visit Return to clinic in 6 months We will increase the lisinopril from 20 mg daily to 30 mg daily documented in this encounter Ordered Prescriptions Prescription Sig Dispense Quantity Refills Last Filled Start Date End Date lisinopriL (PRINIVIL,ZESTRIL) 20 mg tablet Take 1.5 tablets (30 mg total) by mouth daily 135 tablet 3 07/22/2022 4 documented in this encounter Progress Notes * Raj Faria MD - 07/22/2022 10:50 AM CDT NEPHROLOGY SUBSEQUENT OFFICE VISIT NOTE NAME: DAVID DREW DATE OF : 1940 DATE OF VISIT: 07/22/2022 MEDICAL PROBLEM LIST: CKD stage 3 likely [...] INTERVAL HISTORY: Mr. David Drew is a 81 year-old gentleman who returns for follow up of his CKD stage 3. He was last seen in the renal clinic in 09/2021. In the interim, he was diagnosed with COVID-19 last month and was admitted to [facility] for SOB. He was given remdesivir and prednisone. He did well and was discharged the next day. Renal function remained stable during the hospitalization with creatinine in 1.8-1.9 range. Today he reports feeling well in general. He still has back pain which has been persistent due to aprolapsed disc. He denies chest pain, shortness of breath, dizziness, edema, or urinary symptoms. He measures his BP at home every day and BP ranges between 130/70 - 180/90. He is currently on lisinopril 20 mg daily, carvedilol 12.5 mg BID, and chlorthalidone 25 mg daily. He discontinued amlodipine again after his PCP restarted it last year - he states he stopped it as he did not see any improve ment in his BP. REVIEW OF SYSTEMS: All other systems are negative. MEDICATIONS: Current Outpatient Medications on File Prior to Visit Medication Sig abiraterone (ZYTIGA) 250 mg tablet Take 4 tablets (1,000 mg) by mouth daily. Do not eat anything for at least 2 hours before and for at least 1 hour after Accu-Chek Fastclix Lancet Drum misc USE DIRECTED TO TEST BLOOD SUGAR Accu-Chek Guide test strips strip USE TO TEST BLOOD SUGAR TWICE DAILY DIRECTED albuterol HFA (PROVENTIL HFA,VENTOLIN HFA,PROAIR HFA) 90 mcg/actuation inhaler INHALE 2 PUFFS BY MOUTH FOUR TIMES DAILY NEEDED FOR SHORTNESS OF BREATH OR WHEEZING aspirin 81 mg tablet Take 1 tablet (81 mg total) by mouth daily. azithromycin (ZITHROMAX) 250 mg tablet blood glucose diagnostic strip carvediloL (COREG) 12.5 mg tablet Take 1 tablet (12.5 mg total) by mouth 2 (two) times a day with meals cefdinir (OMNICEF) 300 mg capsule Take 1 capsule (300 mg total) by mouth every 12 (twelve) hours chlorthalidone 25 mg tablet TAKE 1 TABLET(25 MG) BY MOUTH DAILY insulin aspart (NovoLOG) 100 unit/mL (3 mL) pen for injection ADMINISTER 8 UNITS UNDER THE SKIN THREE TIMES DAILY BEFORE MEALS Januvia 25 mg tablet TAKE 1 TABLET BY MOUTH DAILY LANTUS 100 unit/mL (3 mL) pen for injection ADMINISTER 28 UNITS UNDER THE SKIN DAILY latanoprost (XALATAN) 0.005 % ophthalmic solution ONETOUCH ULTRA BLUE TEST STRIP strip TEST SUGAR TWICE DAILY oxyCODONE (ROXICODONE) 5 mg immediate release tablet Take 1 tablet (5 mg total) by mouth every 6 (six) hours as needed for pain pantoprazole DR (PROTONIX) 40 mg EC tablet TAKE 1 TABLET(40 MG) BY MOUTH DAILY pen needle, diabetic (BD Ultra-Fine Short Pen Needle) 31 gauge x 5/16 needle Use as directed to inject insulin once daily.Use inject insulin Three times a day also PT has two different insulin that he use pravastatin (PRAVACHOL) 20 mg tablet TAKE 1 TABLET BY MOUTH EVERY DAY predniSONE (DELTASONE) 5 mg tablet Take 1 tablet (5 mg) by mouth two times a day timolol (TIMOPTIC) 0.5 % ophthalmic solution timolol (TIMOPTIC-XE) 0.5 % ophthalmic gel-forming TRAVATAN Z 0.004 % drops INT 1 DROP INTO OU QHS [DISCONTINUED] amLODIPine (NORVASC) 2.5 mg tablet Take 1 tablet (2.5 mg total) by mouth nightly [DISCONTINUED] lisinopriL (PRINIVIL,ZESTRIL) 20 mg tablet TAKE 1 TABLET(20 MG) BY MOUTH DAILY No current facility-administered medications on file prior to visit. PHYSICAL EXAM: GENERAL: A very pleasant male in no apparent distress Vitals: 07/22/22 1135 07/22/22 1423 BP: (!) 175/84 149/90 BP Location: Right arm Patient Position: Sitting Pulse: 69 Weight: 100.6 kg (221 lb 11.2 oz) Height: 177.8 cm (5' 10 ) HEENT: [...] DATA Resulted in the Past 12 Months 07/16/22 1100 06/02/22 1048 03/10/22 1010 02/12/22 1201 12/16/21 0740 10/02/21 1427 SODIUM 139 141 138 143 141 142 POTASSIUM 4.8 4.5 4.4 4.6 4.5 4.5 CO2 30 33* 28 32 30 28 BUNSER 34* 28* 42* 32* 42* 42* CREATININE 2.27* 1.95* 2.05* 1.93* 2.05* 2.02* ALBUMIN 3.8 4.1 4.0 -- 4.3 3.9 CALCIUM 8.8 9.6 9.1 8.9 9.3 9.2 PHOS 3.9 -- -- -- -- 3.9 PTH 66 -- -- -- -- 52 HGB 12.1* 12.9* 12.2* -- 12.5* 11.9* DATE Na K CO2 BUN SCr Alb [...] is likely uncontrolled hypertension and diabetes mellitus. Creatinine has fluctuated over the last year and most recent serum creatinine is 2.27mg/dL with eGFR of 28 ml/min. Today, we discussed the importance of improved glycemic and BP control. Hypertension: His BP continues to be poorly controlled. He is currently on carvedilol 12.5 mg bid, lisinopril 20 mg daily, and chlorthalidone 25 mg daily. Amlodipine was self-discontinued a few months ago. Today we will increase lisinopril 20 mg daily to 30 mg daily. We also discussed the importance of a low-sodium diet. Anemia of CKD: Hemoglobin has remained relatively stable. Will check iron stores with the next set of labs. No need for AHSAN at this time. Secondary hyperparathyroidism: Calcium and phosphorus are within goal. 25-OH vitamin D and iPTH arenormal. He will continue OTC vitamin D supplement. DISPOSITION: The patient will return follow up in 6 months with labs. Raj Faria MD Nephrology fellow [facility] Nephrology (Team Li) Cosigned by Lin Guerrero MD at 07/22/2022 2:29 PM CDT Associated attestation - Lin Guerrero MD - 07/22/2022 2:29 PM CDT I saw and examined the patient on 07/22/2022 and discussed the management of this patient with the renal fellow. I agree with the findings and plan of care as documented in the renal fellow's note. documented in this encounter Plan of Treatment [...] to monitor diabetes and kidney status, etc. [facility] Chronic Pain Care Plan Chronic Care Management No change(03/23 1:47 PM DRY WALL INSTALLER) Ingrid Mcdaniels, RN Note: Problem: Chronic Pain Goals: 1. Minimize further functional decline 2. Maximize quality of life 3. Control pain Strategies: - Activity/exercise program recommendation - Conservative stepwise pain medicine strategy with multi-disciplinary approach - Recommend healthy lifestyle strategies and compensatory methods as needed documented as of this encounter Visit Diagnoses Diagnosis Chronic kidney disease, stage 3b (HCC)- Primary Primary hypertension Unspecified essential hypertension 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 chronic kidney disease (HCC) documented in this encounter Discontinued Medications Medication Sig Discontinue Reason Start Date End Da te lisinopriL (PRINIVIL,ZESTRIL) 20 mg tablet TAKE 1 TABLET(20 MG) BY MOUTH DAILY 05/06/2022 07/22/2022 amLODIPine (NORVASC) 2.5 mg tablet Take 1 tablet (2.5 mg total) by mouth nightly 02/12/2022 07/22/2022 documented as of this encounter Historical Medications * This list may reflect changes made after this encounter. albuterol HFA (PROVENTIL HFA,VENTOLIN HFA,PROAIR HFA) 90 mcg/actuation inhaler Inhale 2 puffs every 8 (eight) hours as needed for wheezing or shortness of breath 06/21/2022 cefdinir (OMNICEF) 300 mg capsule Take 1 capsule (300 mg total) by mouth every 12 (twelve) hours 06/21/2022 3 azithromycin (ZITHROMAX) 250 mg tablet 06/21/2022 3 added in this encounter Care Teams Acid Mixer Relationship Specialty Start Date End Date Kraig Ching MD [address] [facility] [address] [place] [address] PCP - General 07/10/16 Gautam Cope MD [address] [facility] [address] [place] [address] Medical Oncologist/Data Analyst Medical Oncology 08/18/18 Tramaine Roe MD [id number] [place] [address] Referring Physician Urology 08/18/18 Sukhwinder Uribe MD [address] [address] Consulting Physician Urology 08/18/18 Shay Guillermo MD [id number] [place] [address] Referring Physician Urology 08/18/18 Marsha Landis RN Registered Nurse 11/17/18 documented as of this encounter
--- OUTSIDE RECORDS SUMMARY | 2024-03-31 04:55 | XMS_ITS | Encounter Summary ---
Author Organization [facility] Medical Group Address [address] [facility] [address] [place] [address] Care Team Providers Care Wire Straightener Name Role Phone Kraig Ching MD Primary Care Provider [phone] Gautam Cope MD Unavailable Tramaine Roe MD Unavailable [phone] Sukhwinder Uribe MD Unavailable [phone] Shay Guillermo MD Unavailable [phone] Marsha Landis RN Unavailable Unavailab le Reason for Visit * Reason Onset Date Comments Covid-19 Home Monitoring 06/30/2022 Encounter Details Date Type Department Care Team (Late st Contact Info) Description 06/30/2022 Telephone [facility] Accountable Care Organization [address] [place] [address] Priyanka Lynch [address] [place] [address] Covid-19 Home Monitoring Social History Tobacco Use [...] on file 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 COVID-19 Symptom questionnaire was completed today. Symptoms were addressed to be Mild. Escalation was not needed. Next Program Call Due: 07/02 COVID-19 Home Monitoring Flowsheet Answers: Temp/Pulse Ox Temp: (no fever) Symptom Monitoring Are you feeling short of breath today?: No Are you having a cough today?: No Are you experiencing weakness today?: Yes Weakness Details:: Better How is your appetite compared to yesterday?: Unchanged Are you vomiting?: No Are you experiencing diarrhea? : No Patient's would like to continue monitoring until Wednesday but would like to skip tomorrow's call due to her being unavailable. * Telephone Encounter - Priyanka Lynch MA - 06/30/2022 12:54 PM CDT [facility] Home Monitoring Unable to Reach Called patient [...] to monitor diabetes and kidney status, etc. [facility] Chronic Pain Care Plan Chronic Care Management No change(03/23 1:47 PM ADDICTION COUNSELOR) No Ingrid Oden, SHEA Note: Problem: Chronic Pain Goals: 1. Minimize further functional decline 2. Maximize quality of life 3. Control pain Strategies: - Activity/exercise program recommendation - Conservative stepwise pain medicine strategy with multi-disciplinary approach - Recommend healthy lifestyle strategies and compensatory methods as needed documented as of this encounter Visit Diagnoses Not on filedocumented in this encounter Care Teams Wire Straightener Relationship Specialty Start Date End Date Kraig Ching MD [address] [facility] [address] [place] [address] PCP - General 07/10/16 Gautam Cope MD [id number] [place] [address] Medical Oncologist/Shift Lab Technician Medical Oncology 08/18/18 Tramaine Roe MD [address] [address] Referring Physician Urology 08/18/18 Sukhwinder Uribe MD [id number] [place] [address] Consulting Physician Urology 08/18/18 Shay Guillermo MD [id number] [place] [address] Referring Physician Urology 08/18/18 Marsha Landis, RN Registered Nurse 11/17/18 documented as of this encounter
--- OUTSIDE RECORDS SUMMARY | 2024-03-31 04:55 | XMS_ITS | Encounter Summary ---
Author Organization [facility] Medical [facility] Address [address] [facility] [address] [place] [address] Care Team Providers Care Service Planner Name Role Phone Kraig Ching MD Primary Care Provider [phone] Gautam Cope MD Unavailable Tramaine Roe MD Unavailable [phone] Sukhwinder Uribe MD Unavailable [phone] Shay Guillermo MD Unavailable [phone] Marsah Landis RN Unavailable Unavailab le Reason for Visit * Reason Onset Date Comments Medical Question/Miscellaneous 08/10/2022 Encounter Details Date Type Department Care Team (Late st Contact Info) Description 08/10/2022 Telephone [facility] [address] [facility] [address] [place] [address] Kraig Ching MD [address] [facility] [address] [place] [address] Medical Question/Miscellaneous Social History Tobacco Use Types Packs/Day Years [...] file 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 Yes-Action [...] Care Management No change(03/23 1:47 PM DIRECTOR VIDEO) No Ingrid Oden, SHEA Note: Problem: Chronic Pain Goals: 1. Minimize further functional decline 2. Maximize quality of life 3. Control pain Strategies: - Activity/exercise program recommendation - Conservative stepwise pain medicine strategy with multi-disciplinary approach - Recommend healthy lifestyle strategies and compensatory methods as needed documented as of this encounter Visit Diagnoses Not on filedocumented in this encounter Care Teams Service Planner Relationship Specialty Start Date End Date Kraig Ching MD [address] [place], [place] [id number] PCP - General 07/10/16 Gautam Cope MD [address] [place] [address] Medical Oncologist/Supplier Quality Engineering Manager Medical Oncology 08/18/18 Tramaine Roe MD [address] [facility] [address] [place] [address] Referring Physician Urology 08/18/18 Sukhwinder Uribe MD [address] [facility] [address] [place] [address] Consulting Physician Urology 08/18/18 Shay Guillermo MD [address] [facility] [address] [place] [address] Referring Physician Urology 08/18/18 Marsha Landis, RN Registered Nurse 11/17/18 documented as of this encounter
--- OUTSIDE RECORDS SUMMARY | 2024-03-31 04:55 | XMS_ITS | Encounter Summary ---
Author Organization [facility] Healthcare Address [address] [place] [address] Care Team Providers Care Heading Matcher And Assembler Name Role Phone Kraig Ching MD Primary Care Provider Gautam Cope MD Unavailable Tramaine Roe MD Unavailable [phone] Sukhwinder Uribe MD Unavailable [phone] Shay Guillermo MD Unavailable [phone] Marsha Landis RN Unavailable Unavailab le Reason for Referral * MRI/CAT/PET Scan (Routine) - Closed Specialty Diagnoses / Procedures Referred By Saleem narvaez Referred To Contact Radiology Diagnoses Prostate cancer (HCC) Procedures CT chest without contrast Gautam Cope MD [address] [address] Phone: tel: fax: [facility] [address] [place] [address] Referral ID Status Reason Start Date Expiration Date Visits Re quested Visits Authorized [id number] Closed 03/08/2022 04/07/2023 1 1 RUFFER Reason for Visit * MRI/CAT/PET Scan (Routine) - Closed Specialty Diagnoses / Procedures Referred By Saleem narvaez Referred To Contact Radiology Diagnoses Prostate cancer (HCC) Procedures CT chest without contrast Gautam Cope MD [id number] [place] [address] Phone: tel: fax: [facility] [address] [facility] [place] [address] Referral ID Status Reason Start Date Expiration Date Visits Re quested Visits Authorized [id number] Closed 03/08/2022 04/07/2023 1 1 Encounter Details Date Type Department Care Team (Latest Contact Info) Description 06/02/2022 12:38 PM SOLE RUFFER - 06/02/2022 11:59 PM SOLE RUFFER Hospital Encounter [facility] [address] [place] [address] Gautam Cope MD [address] [facility] [address] [place] [address] Prostate cancer (CMS/HCC) (HCC) Discharge Disposition: Discharge to home or [...] on file 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 SOLE RUFFER Gender Identity Not on file Sexual Orientation Not on file documented as of this encounter Medications at Time of Discharge abiraterone (ZYTIGA) 250 mg tabletIndication s:Prostate cancer [...] DAILY DIRECTED 200 strip 2 12/05/2021 3 amLODIPine (NORVASC) 2.5 mg tablet Take 1 tablet (2.5 mg total) by mouth nightly 30 tablet 11 02/12/2022 3 aspirin 81 mg tablet Take 1 tablet (81 mg total) by mouth daily. 30 tablet 11 03/07/2018 3 blood glucose diagnostic strip 11/10/19 2 3 carvediloL (COREG) 12.5 mg tabletIndication s:CKD (chronic kidney disease) stage 3, GFR 30-59 ml/min ([facility]) Take 1 tablet (12.5 mg total) by [...] UNDER THE SKIN DAILY 6 mL 2 04/27/2022 3 Januvia 25 mg tabletIndication s:Type 2 diabetes mellitus with stage 3 chronic kidney disease, without long-term current use of insulin ([facility]) TAKE 1 TABLET BY MOUTH DAILY 30 tablet 11 02/10/2022 3 latanoprost (XALATAN) 0.005 % ophthalmic solution 05/03/2021 3 lisinopriL (PRINIVIL,ZESTRI L) 20 mg tablet TAKE 1 TABLET(20 MG) BY MOUTH DAILY 30 tablet 3 05/06/2022 3 ONETOUCH ULTRA BLUE TEST STRIP strip TEST SUGAR TWICE DAILY 100 each 3 09/20/2017 3 oxyCODONE (ROXICODONE) 5 mg immediate release tabletIndication s:Pain Take 1 tablet (5 mg total) by mouth every 6 (six) hours as needed for pain 60 tablet 05/21/[address] (PROTONIX) 40 mg EC tablet TAKE 1 TABLET(40 MG) BY MOUTH DAILY 90 tablet 03/03/2022 3 pen needle, diabetic (BD Ultra-Fine Short [...] Chronic Care Management No change(03/23 1:47 PM SOLE RUFFER) No Ingrid Oden, SHEA Note: Problem: Chronic [...] CONTRAST Schedule Routine, Read Routine (OP Routine) 06/02/2022 1:06 PM SOLE RUFFER Prostate cancer (CMS/HCC) (HCC) documented in this encounter Results * CT chest without contrast (06/02/2022 1:06 PM SOLE RUFFER) Anatomical Region Laterality Modality Body N/A Computed Tomogra phy 06/02/2022 1:36 PM SOLE RUFFER Impressions 06/02/2022 1:59 PM SOLE RUFFER 1. ??No change in a 7 mm ground glass opacity in the right upper lobe 2. ??Unchanged severe aortic valve calcification which may the an indication of aortic stenosis. Dictated by: Chris Faria M.D. The radiology attending physician has personally reviewed this study, and had reviewed and/or edited this written report and agrees with it. Electronically signed by: Nhan Sosa M.D. Narrative 06/02/2022 1:59 PM SOLE RUFFER EXAMINATION: ??Computed tomography of the chest without intravenous contrast HISTORY: 81-year-old male with prostate cancer TECHNIQUE: ??Transaxial computed tomographic images of the chest were obtained without intravenous contrast according to the standard protocol. COMPARISON: 09/10/2021 FINDINGS: ?? The aortic valve is markedly calcified, as are the coronary arteries. Fat deposition in the myocardium is likely secondary to remote myocardial infarction. ??The pancreas, spleen, and remaining visualized upper abdomen are normal. 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 ??An unchanged groundglass nodule in the right upper lobe is approximately 7 mm and is indeterminate. Procedure Note Nhan Sosa MD - 06/02/2022 EXAMINATION: Computed tomography of the chest without intravenous contrast HISTORY: 81-year-old male with prostate cancer TECHNIQUE: Transaxial computed tomographic images of the chest were obtained without intravenous contrast according to the standard protocol. COMPARISON: 09/10/2021 FINDINGS: The aortic valve is markedly calcified, as are the coronary arteries. Fat deposition in the myocardium is likely secondary to remote myocardial infarction. The pancreas, spleen, and remaining visualized upper abdomen are normal. 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 An unchanged groundglass nodule in the right upper lobe is approximately 7 mm and is indeterminate. IMPRESSION: 1. No change in a 7 mm ground glass opacity in the right upper lobe 2. Unchanged severe aortic valve calcification which may the an indication of aortic stenosis. Dictated by: Chris Faria M.D. The radiology attending physician has personally reviewed this study, and had reviewed and/or edited this written report and agrees with it. Electronically signed by: Nhan Sosa M.D. Gautam Cope MD IMG CT PROCEDURES Final Result documented in this encounter Visit Diagnoses Diagnosis Prostate cancer (HCC) Malignant neoplasm of prostate documented in this encounter Care Teams Heading Matcher And Assembler Relationship Specialty Start Date End Date Kraig Ching MD [address] [facility] [address] [place] [address] PCP - General 07/10/16 Gautam Cope MD [address] [facility] [address] [place] [address] Medical Oncologist/District Medical Examiner Medical Oncology 08/18/18 Tramaine Roe MD [address] [facility] [address] [place] [address] Referring Physician Urology 08/18/18 Sukhwinder Uribe MD [address] [facility] [address] [place] [address] Consulting Physician Urology 08/18/18 Shay Guillermo MD [address] [facility] [address] [place] [address] Referring Physician Urology 08/18/18 Marsha Landis, RN Registered Nurse 11/17/18 documented as of this encounter
--- OUTSIDE RECORDS SUMMARY | 2024-03-31 04:55 | XMS_ITS | Encounter Summary ---
Author Organization [facility] Address [address] [place] [address] Phone Care Team Providers Care Direct Chill Casting Operator Name Role Phone Kraig Ching MD Primary Care Provider [phone] Gautam Cope MD Unavailable Tramaine Roe MD Unavailable [phone] Sukhwinder Uribe MD Unavailable [phone] Shay Guillermo MD Unavailable [phone] Marsha Landis RN Unavailable Unavailab le Reason for Visit * Reason Comments Cataract * Consultation (Routine) - Closed Specialty Diagnoses / Procedures Referred By Contulices t Referred To Contact Ophthalmology Diagnoses Cataract of both eyes, unspecified cataract type Kraig Ching MD [address] [facility] [address] [place] [address] Phone: tel: fax: Nalini Son MD [address] [facility] DEPT OPHTHALMOLOGY, [facility] [address] [place] [address] Phone: tel: fax: Referral ID Status Reason Start Date Expiration Date V isits Requested Visits Authorized [id number] Closed Specialty Services Required 08/18/2022 09/17/2023 6 6 Encounter Details Date Type Department Care Team (Late st Contact Info) Description 10/30/2022 3:15 PM CDT Office Visit [facility] Ophthalmology [address] [facility] [address] [place] [address] Higinio Connolly MD [address] [facility] [address] [place] [address] Moderate stage chronic narrow angle glaucoma (Primary Dx); Combined forms of age-related cataract of both eyes; 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; Type 2 diabetes mellitus without complication, with long-term current use of insulin ([facility]) ([facility]) Social History Tobacco Use Types Packs/Day Years [...] on file 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 Gender Identity Not on file Sexual Orientation Not on file documented as of this encounter Progress Notes * Higinio Connolly MD - 10/30/2022 3:15 PM CDT Impression: Mild to moderate stage narrow angle glaucoma left eye (OS)/narrow angle glaucoma suspect right eye (OD) with elevated intraocular pressure (IOP) left eye (OS) on current medication (not sure whether just taking Timolol vs using another medication (two different ones listed on medicationlist) Visually significant age-related nuclear/posterior subcapsular cataract (PSC) cataracts both eyes (OU) Type 2 diabetes mellitus on Januvia and insulin - no evidence of retinopathy both eyes (OU) Plan: We discussed his status at length. We need to establish his current glaucoma medications and what level of damage is before discussing cataract surgery. Will contact his power equipment technology instructor (Dr. Whitley Andersen in [place], [place]) to get other details regarding this. Will also speak to pt next week when he is at home to have him read the names of whatever medications he has at home. Will proceed with surgery discussion based on that. documented in this encounter Plan of [...] to monitor diabetes and kidney status, etc. [facility] Chronic Pain Care Plan Chronic Care Management No change(03/23 1:47 PM PSYCHIATRIC SPECIALIST) No Ingrid Oden, RN Note: Problem: Chronic Pain Goals: 1. Minimize further functional decline 2. Maximize quality of life 3. 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 Type 2 diabetes mellitus without complication, with long-term current use of insulin (CMS/HCC) ([facility]) documented in this encounter Discontinued Medications Medication Sig Discontinue Reason Start Date End Da te timolol (TIMOPTIC) 0.5 % ophthalmic solution 09/26/2021 10/30/2022 documented as of this encounter Orders Outpatient Referral Count Last Ordered Date Fir st Ordered Date AMB REFERRAL TO OPHTHALMOLOGY 1 10/30/2022 documented in this encounter Eye Exam Visual Acuity (Snellen - Linear) Right eye Left eye Dist sc 20/30 20/40 -2 Dist ph sc 20/25 Tonometry (Applanation, 3:26 PM) Right eye Left eye Pressure 18 27 Pachymetry (10/30/2022) Right eye Left eye Thickness 556 549 Pupils Dark Light Shape APD Right eye 3 2.5 Round None Left eye 3 2.5 Round None Visual Steiner Right eye Left eye Full Full Extraocular Movement Right eye Left eye Full Full Neuro/Psych Oriented x3: Yes Mood/Affect: Normal Dilation Both eyes: 1.0% Mydriacyl @ 3:41 PM Glare Testing (BAT) High Right eye 20/40 Left eye External Exam Right eye Left eye External Normal Normal Slit Lamp Exam Right eye Left eye Lids/Lashes Dermatochalasis - lower lid Derm atochalasis - lower lid Conjunctiva/Sclera White and quiet White and dereck et Cornea Clear Clear Anterior Chamber shallow, quiet shallow, quiet Iris Round and reactive Round and melo ctive Lens 3+ NS/central PSC 3+ NS/central PSC Anterior Vitreous Normal Normal Fundus Exam Right eye Left eye Disc Normal Normal C/D Ratio Approx 0.3 Approx 0.6 (thin sup rim) x 0.5 Macula Normal Normal Vessels Normal Normal Periphery Normal Normal Manifest Refraction Sphere Cylinder Emmet Dist VA Right eye -1.50 +1.50 005 NI Left eye -2.00 +1.75 030 NI Care Teams Direct Chill Casting Operator Relationship Specialty Start Date End Date Kraig Ching MD [address] [facility] [address] [place] [address] PCP - General 07/10/16 Gautam Cope MD [address] [facility] [address] [place] [address] Medical Oncologist/Tibco Developer Medical Oncology 08/18/18 Tramaine Roe MD [address] [facility] [address] [place] [address] Referring Physician Urology 08/18/18 Sukhwinder Uribe MD [address] [facility] [address] [place] [address] Consulting Physician Urology 08/18/18 Shay Guillermo MD [address] [facility] [address] [place] [address] Referring Physician Urology 08/18/18 Marsha Landis, RN Registered Nurse 11/17/18 documented as of this encounter
--- OUTSIDE RECORDS SUMMARY | 2024-03-31 04:56 | XMS_ITS | Encounter Summary ---
Author Organization [facility] Address [address] [place] [address] Phone Care Team Providers Care Cellular Equipment Repairer Name Role Phone Kraig Ching MD Primary Care Provider [phone] Gautam Cope MD Unavailable Tramaine Roe MD Unavailable [phone] Sukhwinder Uribe MD Unavailable [phone] Shay Guillermo MD Unavailable [phone] Marsha Landis RN Unavailable Unavailab le Encounter Details Date Type Department Care Team (Late st Contact Info) Description 12/09/2021 Orders Only [facility] Oncology [address] [facility] 7th [place] [address] [place] [address] Muna Saleem RN Social History Tobacco Use Types Packs/Day [...] more points, staff should administer the PHQ-9) 1 08/08/2021 Hunger Vital Sign Answer Date Recorded Worried [...] on file 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 Minimize further functional decline 2. Maximize quality of life 3. Control pain Strategies: - Activity/exercise program recommendation - Conservative stepwise pain medicine strategy with multi-disciplinary approach - Recommend healthy lifestyle strategies and compensatory methods as needed documented as of this encounter Visit Diagnoses Not on filedocumented in this encounter Care Teams Cellular Equipment Repairer Relationship Specialty Start Date End Date Kraig Ching MD [address] [place] [address] PCP - General 07/10/16 Gautam Cope MD [address] [place] [address] Medical Oncologist/Tire Service Technician Medical Oncology 08/18/18 Tramaine Roe MD [address] [place] [address] Referring Physician Urology 08/18/18 Sukhwinder Uribe MD [address] [place] [address] Consulting Physician Urology 08/18/18 Shay Guillermo MD [address] [place] [address] Referring Physician Urology 08/18/18 Marsha Landis, RN Registered Nurse 11/17/18 documented as of this encounter
--- OUTSIDE RECORDS SUMMARY | 2024-03-31 04:56 | XMS_ITS | Encounter Summary ---
Author Organization [facility] Healthcare Address [address] [place] [address] Care Team Providers Care Manager Forms Name Role Phone Kraig Ching MD Primary Care Provider [phone] Gautam Cope MD Unavailable Tramaine Roe MD Unavailable [phone] Sukhwinder Uribe MD Unavailable [phone] Shay Guillermo MD Unavailable [phone] Marsha Landis RN Unavailable Unavailab le Encounter Details Date Type Department Care Team (Latest Contact Info) Description 06/02/2022 9:02 AM CYLINDER HONER - 06/02/2022 12:37 PM CYLINDER HONER Hospital Encounter [facility] [address] [place] [address] Prostate cancer (CMS/HCC) (HCC) Discharge Disposition: Discharge [...] on file 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 CYLINDER HONER Gender Identity Not on file Sexual Orientation [...] Chronic Care Management No change(03/23 1:47 PM CYLINDER HONER) No Ingrid Oden, SHEA Note: Problem: Chronic Pain Goals: 1. Minimize further functional decline 2. Maximize quality of life 3. Control pain Strategies: - Activity/exercise program recommendation - Conservative stepwise pain medicine strategy with multi-disciplinary approach - Recommend healthy lifestyle strategies and compensatory methods as needed documented as of this encounter Procedures Procedure Name Priority Date/Time Associated Diagnosis Comments EGFR STAT 06/02/2022 10:48 AM CYLINDER HONER Prostate cancer (CMS/HCC) (HCC) DIFFERENTIAL AUTO Routine 06/02/2022 10: 48 AM CYLINDER HONER Prostate cancer (CMS/HCC) (HCC) CBC WITH AUTO DIFFERENTIAL Routine 06/02/2022 10:48 AM CYLINDER HONER Prostate cancer (CMS/HCC) (HCC) PSA DIAGNOSTIC Routine 06/02/2022 10:48 AM CYLINDER HONER Prostate cancer (CMS/HCC) (HCC) LACTATE DEHYDROGENASE Routine 06/02/2022 10:48 AM CYLINDER HONER Prostate cancer (CMS/HCC) (HCC) COMPREHENSIVE METABOLIC PANEL STAT 06/02/2022 10:48 AM CYLINDER HONER Prostate cancer (CMS/HCC) (HCC) documented in this encounter Results * (ABNORMAL) eGFR (06/02/2022 10:48 AM CYLINDER HONER) eGFR 34(L) 90 - 130 mL/min/1. 73 m2 MERLINE HARRIS Comment: Interpretive [...] was last reviewed 2021. Testing performed by: [facility], [address] [place] [phone] Blood 06/02/2022 10:4 8 AM CYLINDER HONER 06/02/2022 10:49 AM CYLINDER HONER us Gautam Cope MD LAB BLOOD ORDERABLES Final Resul t MERLINE PERDOMO [facility] Department [place] [address] * (ABNORMAL) Differential, auto (06/02/2022 10:48 AM CYLINDER HONER) Neutrophil abs 8.7(H) 1.8 - 6.6 K/cumm CERONEAL BJ Comment:Testing performed by : [facility], [address] [place] [phone] Lymphocyte abs 1.6 1.2 - 3.3 K/cumm [facility]LINE [facility]J Comment:Testing performed by : [facility], [address] [place] [phone] Monocyte abs 1.0 0.2 - 1.2 K/cumm [facility]J Comment:Testing performed by : [facility], [address] [place] [phone] Eosinophil abs 0.2 0.0 - 0.5 K/cumm [facility]J Comment:Testing performed by : [facility], [address] [place] [phone] Basophil abs 0.1 0.0 - 0.2 K/cumm [facility] Comment:Testing performed by : [facility], [address] [place] [phone] Neutrophil pct 75.5 % MERLINE PERDOMO Comment: Interpretive Data Percent cell count reference ranges are not reported, since discordance with absolute values may lead to misinterpretation of CBC data. Current Interpretive Data was last revised on 2017. Testing performed by: [facility], [address] [place] [phone] Lymphocyte pct 14.1 % MERLINE PERDOMO Comment: Interpretive Data Percent cell count reference ranges are not reported, since discordance with absolute values may lead to misinterpretation of CBC data. Current Interpretive Data was last revised on 2017. Testing performed by: [facility], [address] [place] [phone] Monocyte pct 8.3 % [facility]LINE PERDOMO Comment:Testing performed by : [facility], [address] [place] [phone] Eosinophil pct 1.5 % [facility] PERDOMO Comment:Testing performed by : [facility], [address] [place] [phone] Basophil pct 0.6 % [facility] PERDOMO Comment:Testing performed by : [facility], [address] [place] [phone] Blood 06/02/2022 10:4 8 AM CYLINDER HONER 06/02/2022 10:49 AM CYLINDER HONER us Gautam Cope MD LAB BLOOD ORDERABLES Final Resul t Performing Organization Address City/[facility]/ZIP Co de Phone Number [facility] Department [place] [employer] [place] [address] * Lactate dehydrogenase (LD) (06/02/2022 10:48 AM CYLINDER HONER) Lactate dehydrogenase (LDH) 173 100 - 250 Units/L MERILNE PERDOMO Comment:Testing performed by : [facility], [address] [place] [phone] Blood 06/02/2022 10:4 8 AM CYLINDER HONER 06/02/2022 10:49 AM CYLINDER HONER us Gautam Cope MD LAB BLOOD ORDERABLES Final Resul t Performing Organization Address City/[facility]/ZIP Co de Phone Number [facility] [place] [address] * (ABNORMAL) CBC with auto differential (06/02/2022 10:48 AM CYLINDER HONER) WBC 11.5(H) 3.8 - 9.8 K/cumm CERNER BJ Comment:Testing performed by : [facility], [address] [place], [place] [phone] Hgb 12.9(L) 13.8 - 17.2 g/dL CERNER [facility]J Comment:Testing performed by : [facility], [address] [place], [place] [phone] Hct 39.4(L) 40.7 - 50.3 % CERNER BJ Comment:Testing performed by : [facility], [address] [place], [place] [phone] Plt 351 140 - 440 K/cumm CERNER BJ Comment:Testing performed by : [place] [id number] MPV 7.3 6.8 - 10.4 fL [facility]ER [facility]J Comment:Testing performed by : [place] [id number] RBC 4.47(L) 4.50 - 5.70 M/cumm [facility]ER [facility]J Comment:Testing performed by : [place] [id number] MCV 88.2 80.0 - 97.6 fL [facility]ER [facility]J Comment:Testing performed by : [place] [id number] MCH 28.8 26.7 - 33.7 pg CERNER BJ Comment:Testing performed by : [place] [id number] MCHC 32.7 32.7 - 35.5 g/dL CERNER [facility]J Comment:Testing performed by : [place] [id number] RDW CV 14.1 11.8 - 14.6 % CERNER BJ Comment:Testing performed by : [address] [phone] NRBC abs 0.00 0.00 - 0.01 K/cumm [facility]J Comment:Testing performed by : [facility], [address] [place] [phone] Blood 06/02/2022 10:4 8 AM CYLINDER HONER 06/02/2022 10:49 AM CYLINDER HONER us Gautam Cope MD LAB BLOOD ORDERABLES Final Resul t [facility]LINE PERDOMO [facility] Department [place] [address] * (ABNORMAL) Comprehensive metabolic panel (06/02/2022 10:48 AM CYLINDER HONER) Sodium 141 135 - 145 mmol/L MERLINE PERDOMO Comment:Testing performed by : [facility], [address] [place] [phone] Potassium, pl 4.5 3.3 - 4.9 mmol/L MERLINE PERDOMO Comment:Testing performed by : [facility], [address] [place] [phone] Chloride 101 97 - 110 mmol/L [facility] PERDOMO Comment:Testing performed by : [facility], [address] [place] [phone] CO2 33(H) 22 - 32 mmol/L [facility] PERDOMO Comment:Testing performed by : [facility], [address] [place] [phone] Anion gap 7 2 - 15 mmol/L MER[facility] PERDOMO Comment:Testing performed by : [facility], [address] [place] [phone] BUN 28(H) 8 - 25 mg/dL MERLINE PERDOMO Comment:Testing performed by : [facility], [address] [place] [phone] Creatinine 1.95(H) 0.80 - 1.30 mg/dL MERLINE PERDOMO Comment:Testing performed by : [facility], [address] [place] [phone] Glucose 147 70 - 199 mg/dL MERLINE PERDOMO Comment: [...] was last revised 2022. Testing performed by: [facility], [address] [place] [phone] Calcium 9.6 8.5 - 10.3 mg/dL [facility] Comment:Testing performed by : [address] [phone] Bilirubin, total 0.6 0.1 - 1.2 mg/dL [facility] Comment:Testing performed by : [address] [phone] Protein, pl 6.6 6.5 - 8.5 g/dL [facility] Comment:Testing performed by : [facility], [address] [place] [phone] Albumin 4.1 3.5 - 5.0 g/dL [facility] Comment:Testing performed by : [address] [phone] Alk phos 132(H) 40 - 130 Units/L [facility] Comment:Testing performed by : [address] [phone] ALT 12 7 - 55 Units/L [facility] Comment:Testing performed by : [facility], [address] [place] [phone] AST 13 10 - 50 Units/L [facility] Comment:Testing performed by : [address] [phone] Blood 06/02/2022 10:4 8 AM CYLINDER HONER 06/02/2022 10:49 AM CYLINDER HONER us Gautam Cope MD LAB BLOOD ORDERABLES Final Resul t [facility]LINE [facility] Department [place] [address] * PSA diagnostic (06/02/2022 10:48 AM CYLINDER HONER) PSA-Total <0.02 <=6.20 ng/mL MERLINE PERDOMO Comment: [...] Current interpretive data last revised 21. Blood 06/02/2022 10:4 8 AM CYLINDER HONER 06/02/2022 11:17 AM CYLINDER HONER us Gautam Cope MD LAB BLOOD ORDERABLES Final Resul t [facility] PERDOMO [facility] Department [place] [address] documented in this encounter Visit Diagnoses Diagnosis Prostate cancer (HCC) Malignant neoplasm of prostate documented in this encounter Care Teams Manager Forms Relationship Specialty Start Date End Date Kraig Ching MD [address] [facility] [address] [place] [address] PCP - General 07/10/16 Gautam Cope MD [address] [facility] [address] [place] [address] Medical Oncologist/Crowning Inspector Medical Oncology 08/18/18 Tramaine Roe MD [address] [facility] [address] [place] [address] Referring Physician Urology 08/18/18 Sukhwinder Uribe MD [address] [facility] [address] [place] [address] Consulting Physician Urology 08/18/18 Shay Guillermo MD [address] [facility] [address] [place] [address] Referring Physician Urology 08/18/18 Marsha Landis, RN Registered Nurse 11/17/18 documented as of this encounter
--- OUTSIDE RECORDS SUMMARY | 2024-03-31 04:56 | XMS_ITS | Encounter Summary ---
Author Organization [facility] Address [address] [place] [address] Phone Care Team Providers Care Freelance Digital Project Manager Name Role Phone Kraig Ching MD Primary Care Provider [phone] Gautam Cope MD Unavailable Tramaine Roe MD Unavailable [phone] Sukhwinder Uribe MD Unavailable [phone] Shay Guillermo MD Unavailable [phone] Marsha Landis RN Unavailable Unavailab le Reason for Visit * Consultation (Routine) - Authorized Specialty Diagnoses / Procedures Referred By Saleem narvaez Referred To Contact Oncology Diagnoses Prostate cancer (HCC) Tramaine Roe MD [address] [facility] [address] [place] [address] Phone: tel: fax: Gautam Cope MD [address] [facility], [address] [place] [address] Phone: tel: fax: Referral ID Status Reason Start Date Expiration Date Visits Requested Visits Authorized [id number] Authorized Specialty Services Required 08/15/2018 04/11/2024 99 99 Encounter Details Date Type Department Care Team (Late st Contact Info) Description 03/10/2022 11:00 AM MINE PROMOTOR Office Visit [facility] Oncology [address] [facility] 7th [place] [address] [place] [id number] Gautam Cope MD [address] [facility] [address] [place] [address] Prostate cancer (CMS/HCC) (HCC) Social History Tobacco Use Types Packs/Day [...] on file 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 MINE PROMOTOR Gender Identity Not on file Sexual Orientation Not on file documented as of this encounter Last Filed Vital Signs Vital Sign Reading Time Taken Comments Blood Pressure 158/72 03/10/2022 10:17 AM MINE PROMOTOR Pulse 83 03/10/2022 10:17 AM MINE PROMOTOR Temperature 36.7 ??C (98.1 ??F) 03/10/2022 1 0:17 AM MINE PROMOTOR Respiratory Rate 18 03/10/2022 10:1 5 AM MINE PROMOTOR Oxygen Saturation 94% 03/10/2022 10: 17 AM MINE PROMOTOR Inhaled Oxygen Concentration - - Weight 101.3 kg (223 lb 6.4 oz) 022 10:15 AM MINE PROMOTOR Height - - Body Mass Index 32.05 02/12/2022 11:31 AM CDT documented in this encounter Progress Notes * Montez Beatris, LILIA - 03/10/2022 12:00 AM CST PATIENT NAME: DAVID DREW : 1940 [place]: 03/10/2022 Mr. Drew is an 81-year-old patient of Dr. Cope with metastatic prostate cancer. His prostate cancer was diagnosed in 1999 when his PSA was 5.5. He underwent a radical prostatectomy by Dr. Guillermo that summer, which showed Viviana 4 + 3 disease with extracapsular extension, and a positive margin. He received adjuvant radiation therapy, completed in November 1999. In June 2012, his PSA was rising, and by 2018, it was in the double digits. An MRI scan in August 2018 suggested locally recurrent disease, and further workup showed a metastatic deposit at L2. We met the patient after those scans and started Lupron, abiraterone, and prednisone in October 2018. The patient had an excellent serologic response, with a PSA dropping to an undetectable level. Mr. eKlly is tolerating therapy well, and taking abiraterone and prednisone properly. He continues to have urinary frequency, urgency, and incontinence. He has regular back pain related to what is felt to be a herniated disk, and results insome difficulty walking. 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 His other comorbidities include diabetes, hypertension, paroxysmal atrial fibrillation, and hyperlipidemia. Previous scans have shown ground-glass opacities in the lungs, which we have continued to follow with periodic chest CT scans. The patient admits to some dyspnea on exertion, but denies any chest pain. Allother systems are negative. PHYSICAL EXAMINATION: Shows a male whose weight is 101.3 kg. Blood pressure is 158/72, with a pulse 83. He is afebrile. His oxygen saturation is 94% on room air. His performance status is 70%. Nodes: No palpable cervical or supraclavicular adenopathy. Cardiac: Shows an S1, S2, with a harsh early systolic murmur. Lungs: Clear to auscultation bilaterally. Abdomen: Soft, nontender, nondistended. No hepatosplenomegaly or palpable masses noted. Bowel sounds are active. Musculoskeletal: His gait is unsteady and slightly hunched over, but he is able to get on and off the exam table independently. Extremities: Lower extremities show trace bilateral edema. Neurologic: Nonfocal. LABORATORY DATA: From today shows a WBC of 11.2 and hemoglobin of 12.2. His platelet count is 328,000. Additional lab work is pending. His PSA remains < 0.02. ASSESSMENT AND PLAN: 1. Metastatic prostate cancer. His cancer dates back to 1999, when he was treated with a radical prostatectomy followed by adjuvant radiation therapy. Hormonal therapy was started in 2019, when therewas evidence of metastatic involvement at L2, in addition to locally recurrent disease. His cancer has been under excellent control with Lupron, abiraterone, and prednisone. 2. Diabetes. This is managed by his primary care physician. 3. Chronic kidney disease. Followed by Nephrology. 4. Herniated disk, unchanged. 5. Hypertension. Managed by his PCP and food beverage server. 6. Ground-glass opacities in his lungs. Stable, will obtain another chest CT scan in 3 months. Mr. Drew continues to do well with respect to his prostate cancer. We will see him again 3 months from now for further follow-up and another injection. He will remain on his current regimen, as his cancer is nicely controlled. He will have another noncontrast CT scan of his chest prior to his next office visit. The patient is comfortable with this plan and will call with any issues in between visits. ELECTRONICALLY SIGNED - 03/11/2022 02:59 PM BRANDO Chavez Nurse Practitioner In collaboration with Gautam Cope M.D. My signature confirms I have reviewed the note and agree with the assessment and plan of BRANDO Chavez ELECTRONICALLY SIGNED - 03/11/2022 04:03 PM Gautam Cope M.D. melter supervisor oxygen furnace ISAK/GLORIA/lul PROMOTOR documented in this encounter Plan of Treatment [...] monitor diabetes and kidney status, etc. [facility] Chronic Pain Care Plan Chronic Care Management No change(03/23 1:47 PM MINE PROMOTOR) No Ingrid Oden, RN Note: Problem: Chronic [...] rst Ordered Date [facility] CL[facility]IC APPOINTMENT REQUEST 1 022 documented in this encounter Care Teams Freelance Digital Project Manager Relationship Specialty Start Date End Date Kraig Ching MD [address] [place] [address] PCP - General 07/10/16 Gautam Cope MD [address] [facility] [address] [place] [address] Medical Oncologist/Community Music Therapist Medical Oncology 08/18/18 Tramaine Roe MD [address] [facility] [address] [place] [address] Referring Physician Urology 08/18/18 Sukhwinder Uribe MD [address] [facility] [address] [place] [address] Consulting Physician Urology 08/18/18 Shay Guillermo MD [address] [facility] [address] [place] [address] Referring Physician Urology 08/18/18 Marsha Landis, RN Registered Nurse 11/17/18 documented as of this encounter
--- OUTSIDE RECORDS SUMMARY | 2024-03-31 04:56 | XMS_ITS | Encounter Summary ---
Author Organization [facility] Medical Group Address [address] [facility] [address] [place] [address] Care Team Providers Care Parer Name Role Phone Kraig Ching MD Primary Care Provider [phone] Gautam Cope MD Unavailable Tramaine Roe MD Unavailable Sukhwinder Uribe MD Unavailable [phone] Shay Guillermo MD Unavailable [phone] Marsha Landis RN Unavailable Unavailab le Reason for Visit * Reason Onset Date Comments Covid-19 Home Monitoring 12/15/2021 Encounter Details Date Type Department Care Team (Late st Contact Info) Description 12/15/2021 Telephone [facility] Accountable Care Organization [address] [place] [address] Shweta Turcios [address] [facility] [address] [place] [address] Covid-19 Home Monitoring Social History Tobacco Use [...] file 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 MANAGER OF APPLICATIONS DEVELOPMENT Gender Identity Not on file Sexual Orientation Not on file documented as of this encounter Miscellaneous Notes * Telephone Encounter - Shweta Turcios MA - 12/15/2021 12:57 PM CDT This patient has enrolled in the PHONE ONLY version of COVID-19 Home Monitoring Program. COVID-19 Symptom questionnaire was completed today. Symptoms were addressed to be Mild. Escalation was not needed. Next Program Call Due: OVID-19 Home Monitoring Flowsheet Answers: Temp/Pulse Ox Symptom Monitoring Are you feeling short of breath today?: No Are you having a cough today?: No Are you experiencing weakness today?: No How is your appetite compared to yesterday?: Unchanged Are you vomiting?: No Are you experiencing diarrhea? : No documented in this encounter Plan of [...] Care Management No change(03/23 1:47 PM MANAGER OF APPLICATIONS DEVELOPMENT) No Ingrid Oden RN Note: Problem: Chronic Pain Goals: 1. Minimize further functional decline 2. Maximize quality of life 3. Control pain Strategies: - Activity/exercise program recommendation - Conservative stepwise pain medicine strategy with multi-disciplinary approach - Recommend healthy lifestyle strategies and compensatory methods as needed documented as of this encounter Visit Diagnoses Not on filedocumented in this encounter Care Teams Parer Relationship Specialty Start Date End Date Kraig Ching MD [address] [facility] [address] [place] [address] PCP - General 07/10/16 Gautam Cope MD [address] [facility] [address] [place] [address] Medical Oncologist/School Library Media Program Director Medical Oncology 08/18/18 Tramaine Roe MD [address] [facility] [address] [place] [address] Referring Physician Urology 08/18/18 Sukhwinder Uribe MD [address] [facility] [address] [place] [address] Consulting Physician Urology 08/18/18 Shay Guillermo MD [address] [facility] [address] [place] [address] Referring Physician Urology 08/18/18 Marsha Landis, RN Registered Nurse 11/17/18 documented as of this encounter
--- OUTSIDE RECORDS SUMMARY | 2024-03-31 04:56 | XMS_ITS | Encounter Summary ---
Author Organization [facility] Address [address] [place] [address] Phone Care Team Providers Care Polymer Tester Name Role Phone Kraig Ching MD Primary Care Provider [phone] Gautam Cope MD Unavailable Tramaine Roe MD Unavailable [phone] Sukhwinder Uribe MD Unavailable [phone] Shay Guillermo MD Unavailable [phone] Marsha Landis RN Unavailable Unavailab le Reason for Visit * Consultation (Routine) - Authorized Specialty Diagnoses / Procedures Referred By Saleem narvaez Referred To Contact Oncology Diagnoses Prostate cancer (HCC) Tramaine Roe MD [address] [facility] [address] [place] [address] Phone: tel: fax: Gautam Cope MD [address] [facility], [address] [place] [address] Phone: tel: fax: Referral ID Status Reason Start Date Expiration Date Visits Requested Visits Authorized [id number] Authorized Specialty Services Required 08/15/2018 04/11/2024 99 [id number] Encounter Details Date Type Department Care Team (Late st Contact Info) Description 06/02/2022 11:30 AM MANAGER ANIMATION [facility] [address] [facility] 7th [place] [address] [place] [id number] Gautam Cope MD [address] [facility] [address] [place] [address] Prostate cancer (CMS/HCC) (HCC) (Primary Dx) Social [...] file 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 MANAGER ANIMATION Gender Identity Not on file Sexual Orientation Not on file documented as of this encounter Last Filed Vital Signs Vital Sign Reading Time Taken Comments Blood Pressure 159/72 06/02/2022 11:15 AM MANAGER ANIMATION Pulse 73 06/02/2022 11:15 AM MANAGER ANIMATION Temperature 36.2 ??C (97.1 ??F) 06/02/2022 11:[address] Respiratory Rate 20 06/02/2022 11:15 AM MANAGER ANIMATION Oxygen Saturation 95% 06/02/2022 11:15 AM MANAGER ANIMATION Inhaled Oxygen Concentration - - Weight 101.6 kg (224 lb) 06/02/2022 11:15 AM MANAGER ANIMATION Height - - Body Mass Index 32.14 02/12/2022 11:31 AM CDT documented in this encounter Progress Notes * Picus, Gautam, MD - 06/02/2022 12:00 AM CST PATIENT NAME: DAVID DREW : 1940 K[place]: 06/02/2022 Mr. Drew is an 81-year-old with metastatic prostate cancer. He was first diagnosed with prostate cancer when he presented with a PSA of 5.5 in 1999. He underwent a radical prostatectomy by Dr. Guillermo, which showed Viviana 4 + 3 disease with extracapsular extension and positive margin. He then underwent adjuvant radiation therapy, completing this treatment in November 1999. Thirteen years later, in June 2012, he was noted to have a rising PSA. By 2018, his PSA was up in the double digits. An MRI scan performed in August 2018 suggested locally recurrent disease. Further workup did show metastatic deposit present at L2. We met the patient soon after those scans had been obtained, and we started him on Lupron, abiraterone, and prednisone in October 2018. The patient has had an excellent serological and radiological response. He is tolerating therapy quite well. He occasionally has some mildnausea, but otherwise, he has done quite well. He has been under a lot of stress, particularly in the last several weeks. His has had difficulty with her vision, and so he has had to drive her ar ound. She has had other health issues, and it has been very stressful for him. He has reacted by eating a large amount and also has stopped his regular exercise. He is followed by Nephrology for chronic kidney disease. Other comorbidities include diabetes, hypertension, paroxysmal atrial fibrillation, and hyperlipidemia. He has a history of ground-glass opacities in the lungs, and we have followed these with periodic CT scans. We had intended him to get a CT scan prior to today's visit, but it is scheduled for later this afternoon. PHYSICAL EXAMINATION: Vital Signs: Shows a male whose weight is 101.6 kg. His blood pressure is 159/72, pulse 73. He is afebrile. His O2 saturation is 95%. Performance Status: His performance status has slipped down to 60%. Nodes: He has no palpable adenopathy. Lungs: Clear. Cardiac: Shows an S1 and S2, with an early systolic murmur. Abdomen: His abdominal exam shows no hepatosplenomegaly or palpable masses. Extremities: Trace edema. Neurological: He is weak, particularly in his leg muscles and has difficulty getting up from the sitting position. There is no focality to his exam. LABORATORY DATA: Laboratories from today showed a hemoglobin 12.9, white count 11,500, platelet count 351,000. His creatinine is 1.95, with an estimated GFR of 34, which is about stable for him. His random nonfastingglucose is 147. PSA from today remains <0.02. ASSESSMENT AND PLAN: 1. Metastatic prostate cancer. He remains on leuprolide, abiraterone, and prednisone. He was diagnosed in 1999, when he was treated with a radical prostatectomy for Viviana 4 + 3 disease, followed byadjuvant radiation. He was started on hormonal therapy in 2019 for local recurrence, along with metastatic deposit at L2. 2. Diabetes. 3. Chronic kidney disease. 4. Herniated disk. 5. Ground-glass opacities in his lungs. He is due to have a CT scan today for further follow-up. Ifthis is stable or without change, we will probably repeat it again in at least 12 months. If there are any changes or difficulties, we will consider having him seen by Pulmonology. We will see him back 3 months from now, and as mentioned, a noncontrast CT [facility]. ELECTRONICALLY SIGNED - 06/02/2022 04:38 PM Gautam Cope M.D. hat presser GLORIA/lul GER ANIMATION documented in this encounter Plan of Treatment [...] Care Management No change(03/23 1:47 PM MANAGER ANIMATION) No Ingrid Oden RN Note: Problem: Chronic Pain Goals: 1. Minimize further functional decline 2. Maximize quality of life 3. Control pain Strategies: - Activity/exercise program recommendation - Conservative stepwise pain medicine strategy with multi-disciplinary approach - Recommend healthy lifestyle strategies and compensatory methods as needed documented as of this encounter Results * PSA diagnostic (08/25/2022 9:51 AM CDT) PSA-Total <0.02 <=6.20 ng/mL [facility] Comment: Interpretive Data ?AGE ? SEX ?REFERENCE [...] LAB BLOOD ORDERABLES Final Resul t [facility] [place] [address] * (ABNORMAL) Comprehensive metabolic panel (08/25/2022 9:51 AM CDT) Sodium 142 135 - 145 mmol/L [facility] Comment:Testing performed by : [facility], [address] [place] [phone] Potassium, pl 4.8 3.3 - 4.9 mmol/L [facility] Comment:Testing performed by : [facility], [address] [place] [phone] Chloride 103 97 - 110 mmol/L [facility] Comment:Testing performed by : [facility], [address] [place] [phone] CO2 30 22 - 32 mmol/L [facility] Comment:Testing performed by : [facility], [address] [place] [phone] Anion gap 9 2 - 15 mmol/L [facility] Comment:Testing performed by : [facility], [address] [place] [phone] BUN 29(H) 8 - 25 mg/dL [facility] Comment:Testing performed by : [facility], [address] [place] [phone] Creatinine 1.92(H) 0.80 - 1.30 mg/dL [facility] Comment:Testing performed by : [facility], [address] [place] [phone] Glucose 166 70 - 199 mg/dL [facility] Comment: [...] was last revised 2022. Testing performed by: [address] [phone] Calcium 9.6 8.5 - 10.3 mg/dL [facility] Comment:Testing performed by : [facility], [address] [place] [phone] Bilirubin, total 0.5 0.1 - 1.2 mg/dL [facility] Comment:Testing performed by : [address] [phone] Protein, pl 6.9 6.5 - 8.5 g/dL [facility] Comment:Testing performed by : [address] [phone] Albumin 4.2 3.5 - 5.0 g/dL [facility] Comment:Testing performed by : [address] [address] Alk phos 123 40 - 130 Units/L [facility] Comment:Testing performed by : [address] [phone] ALT 11 7 - 55 Units/L [facility] Comment:Testing performed by : [address] [phone] AST 12 10 - 50 Units/L [facility] Comment:Testing performed by : [address] [phone] Blood 08/25/2022 9:51 AM CDT 08/25/2022 9:55 AM CDT us Gautam Cope MD LAB BLOOD ORDERABLES Final Resul t [facility] Department [place] [address] * (ABNORMAL) CBC with auto differential (08/25/2022 9:51 AM CDT) WBC 12.6(H) 3.8 - 9.8 K/cumm [facility] Comment:Testing performed by : [place] [id number] Hgb 12.6(L) 13.8 - 17.2 g/dL [facility] Comment:Testing performed by : [place] [id number] Hct 38.8(L) 40.7 - 50.3 % [facility] Comment:Testing performed by : [place] [id number] Plt 338 140 - 440 K/cumm [facility] Comment:Testing performed by : [place] [id number] MPV 7.6 6.8 - 10.4 fL [facility] Comment:Testing performed by : [place] [id number] RBC 4.36(L) 4.50 - 5.70 M/cumm [facility] Comment:Testing performed by : [address] [address] MCV 89.0 80.0 - 97.6 fL [facility] Comment:Testing performed by : [address] [address] MCH 28.8 26.7 - 33.7 pg [facility] Comment:Testing performed by : [address] [address] MCHC 32.4(L) 32.7 - 35.5 g/dL [facility] Comment:Testing performed by : [facility], [address] [place] [phone] RDW CV 14.8(H) 11.8 - 14.6 % [facility] Comment:Testing performed by : [facility], [address] [place] [phone] NRBC abs 0.01 0.00 - 0.01 K/cumm [facility] Comment:Testing performed by : [facility], [address] [place] [phone] Blood 08/25/2022 9:51 AM CDT 08/25/2022 9:55 AM CDT us Gautam Cope MD LAB BLOOD ORDERABLES Final Resul t Performing Organization Address [facility] Co de Phone Number [facility] Department [place] [employer] [place] [address] * Lactate dehydrogenase (LD) (08/25/2022 9:51 AM CDT) Lactate dehydrogenase (LDH) 174 100 - 250 Units/L [facility] Comment:Testing performed by : [facility], [address] [place] [phone] Blood 08/25/2022 9:51 AM CDT 08/25/2022 9:55 AM CDT us Gautam Cope MD LAB BLOOD ORDERABLES Final Resul t Performing Organization Address [facility] Co de Phone Number [facility] [place] [place] [address] documented in this encounter Visit Diagnoses Diagnosis Prostate cancer (HCC)- Primary Malignant neoplasm of prostate documented in this encounter Orders Appointment Requests Count Last Ordered Date Fi rst Ordered Date ONCBCN CLINIC APPOINTMENT REQUEST 2 023 06/02/2022 ONCBCN INJECTION APPOINTMENT REQUEST 1 08/10 ONCBCN LAB APPOINTMENT 1 08/25/2022 documented in this encounter Care Teams Polymer Tester Relationship Specialty Start Date End Date Kraig Ching MD [address] [place] [address] PCP - General 07/10/16 Gautam Cope MD [address] [place] [address] Medical Oncologist/[employer] [facility] Oncology 08/18/18 Tramaine Roe MD [address] [place] [address] Referring Physician Urology 08/18/18 Sukhwinder Uribe MD [address] [place] [address] Consulting Physician Urology 08/18/18 Shay Guillermo MD [address] [place] [address] Referring Physician Urology 08/18/18 Marsha Landis, RN Registered Nurse 11/17/18 documented as of this encounter
--- OUTSIDE RECORDS SUMMARY | 2024-03-31 04:56 | XMS_ITS | Encounter Summary ---
Author Organization [facility] Address [address] [place] [address] Phone Care Team Providers Care Network Field Engineer Name Role Phone Kraig Ching MD Primary Care Provider [phone] Gautam Cope MD Unavailable Tramaine Roe MD Unavailable [phone] Sukhwinder Uribe MD Unavailable [phone] Shay Guillermo MD Unavailable [phone] Marsha Landis RN Unavailable Unavailab le Encounter Details Date Type Department Care Team (Late st Contact Info) Description 12/05/2021 Orders Only [facility] Oncology [address] [facility] 7th [place] [address] [place] [address] Muna Saleem RN Prostate cancer (CMS/HCC) (HCC) (Primary Dx) Social History Tobacco Use Types Packs/Day Years Used Date Smoking Tobacco: Former Smokeless Tobacco: Never Comments:Smoking History Pac ks/day: 10 Cigarettes Alcohol Use Standard Drinks/Week Comments Yes 0 (1 standard drink = 0.6 oz pur e alcohol) Occasional glass of wine. AUDIT-C Answer Date Recorded Frequency of Alcohol Consumption Not on file 10/10/2020 Average Number of Drinks Not on file 021 Q3: How often do you have si x or more drinks on one occasion? Never 10/10/2020 Overall Financial Resource Strain (CARDIA) Answe r [...] on file 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 HOUSECLEANER Gender Identity Not on file Sexual Orientation [...] Chronic Care Management No change(03/23 1:47 PM HOUSECLEANER) No Ingrid Oden, RN Note: Problem: Chronic Pain Goals: 1. Minimize further functional decline 2. Maximize quality of life 3. Control pain Strategies: - Activity/exercise program recommendation - Conservative stepwise pain medicine strategy with multi-disciplinary approach - Recommend healthy lifestyle strategies and compensatory methods as needed documented as of this encounter Results * PSA diagnostic (03/10/2022 10:10 AM HOUSECLEANER) PSA-Total <0.02 <=6.20 ng/mL [facility] Comment: Interpretive Data ?AGE ? SEX ?REFERENCE INTERVAL 0 minutes-150 years ?Female ?None 0 minutes-49 years ? Male ?None ? 50-59 years ? Male ?0-3.90 ? 60-69 years ? Male ?0-5.40 ? 70-79 years ? Male ?0-6.20 ? 80-150 years ?Male ?0-6.20 The [employer] PSA Total assay procedure was used. Results from different manufacturers or methods may not be comparable. Serial testing should be performed using the same method. Current interpretive data last revised 21. Blood 03/10/2022 10:1 0 AM HOUSECLEANER 03/10/2022 10:26 AM HOUSECLEANER us Gautam Cope MD LAB BLOOD ORDERABLES Final Resul t [facility] [place] [address] * (ABNORMAL) Comprehensive metabolic panel (03/10/2022 10:10 AM HOUSECLEANER) Sodium 138 135 - 145 mmol/L [facility] Comment:Testing performed by : [facility], [address] [place] [phone] Potassium, pl 4.4 3.3 - 4.9 mmol/L [facility] Comment:Testing performed by : [facility], [address] [place] [phone] Chloride 103 97 - 110 mmol/L [facility] Comment:Testing performed by : [facility], [address] [place] [phone] CO2 28 22 - 32 mmol/L [facility] Comment:Testing performed by : [facility], [address] [place] [phone] Anion gap 8 2 - 15 mmol/L [facility] Comment:Testing performed by : [facility], [address] [place] [phone] BUN 42(H) 8 - 25 mg/dL [facility] Comment:Testing performed by : [facility], [address] [place] [phone] Creatinine 2.05(H) 0.80 - 1.30 mg/dL [facility] Comment:Testing performed by : [facility], [address] [place] [phone] Glucose 101 70 - 199 mg/dL [facility] Comment: Interpretive Data Fasting glucose [...] classification and Diagnosis of Diabetes Diabetes Care 2017;40 (Suppl. 1):S11. Current interpretive data was last revised 2017. Testing performed by: [facility], [address] [place] [phone] Calcium 9.1 8.5 - 10.3 mg/dL [facility] Comment:Testing performed by : [facility], [address] [place] [phone] Bilirubin, total 0.4 0.1 - 1.2 mg/dL [facility] Comment:Testing performed by : [facility], [address] [place] [phone] Protein, pl 6.6 6.5 - 8.5 g/dL [facility] Comment:Testing performed by : [facility], [address] [place] [phone] Albumin 4.0 3.5 - 5.0 g/dL [facility] Comment:Testing performed by : [facility], [address] [place] [phone] Alk phos 114 40 - 130 Units/L [facility] Comment:Testing performed by : [facility], [address] [place] [phone] ALT 11 7 - 55 Units/L [facility] Comment:Testing performed by : [facility], [address] [place] [phone] AST 11 10 - 50 Units/L [facility] Comment:Testing performed by : [facility], [address] [place] [phone] Blood 03/10/2022 10:1 0 AM HOUSECLEANER 03/10/2022 10:13 AM HOUSECLEANER us Gautam Cope MD LAB BLOOD ORDERABLES Final Resul t [facility] One [facility] Department [place] [address] * (ABNORMAL) CBC with auto differential (03/10/2022 10:10 AM HOUSECLEANER) WBC 11.2(H) 3.8 - 9.8 K/cumm [facility] Comment:Testing performed by : [facility], [address] [place] [phone] Hgb 12.2(L) 13.8 - 17.2 g/dL [facility] Comment:Testing performed by : [facility], [address] [place], [place] [phone] Hct 37.2(L) 40.7 - 50.3 % [facility] Comment:Testing performed by : [facility], [address] [place] [address] Plt 328 140 - 440 K/cumm [facility] Comment:Testing performed by : [facility], [address] [place] [address] MPV 7.5 6.8 - 10.4 fL [facility] Comment:Testing performed by : [facility], [address] [place] [address] RBC 4.20(L) 4.50 - 5.70 M/cumm [facility] Comment:Testing performed by : [facility], [address] [place] [address] MCV 88.5 80.0 - 97.6 fL [facility] Comment:Testing performed by : [facility], [address] [place], [place] [phone] MCH 29.1 26.7 - 33.7 pg [facility] Comment:Testing performed by : [place] [address] MCHC 32.9 32.7 - 35.5 g/dL [facility] Comment:Testing performed by : [place] [address] RDW CV 14.7(H) 11.8 - 14.6 % [facility] Comment:Testing performed by : [facility], [address] [place], [place] [phone] NRBC abs 0.00 0.00 - 0.01 K/cumm [facility] Comment:Testing performed by : [place] [address] Blood 03/10/2022 10:1 0 AM HOUSECLEANER 03/10/2022 10:13 AM HOUSECLEANER us Gautam Cope MD LAB BLOOD ORDERABLES Final Resul t [facility] Department [place] [address] * Lactate dehydrogenase (LD) (03/10/2022 10:10 AM HOUSECLEANER) Lactate dehydrogenase (LDH) 166 100 - 250 Units/L [facility] Comment:Testing performed by : [facility], [address] [facility] [phone] Blood 03/10/2022 10:1 0 AM HOUSECLEANER 03/10/2022 10:13 AM HOUSECLEANER us Gautam Cope MD LAB BLOOD ORDERABLES Final Resul t [facility] Department [place] [address] documented in this encounter Visit Diagnoses Diagnosis Prostate cancer (HCC)- Primary Malignant neoplasm of prostate documented in this encounter Orders Appointment Requests Count Last Ordered Date Fi rst Ordered Date ONCBCN CLINIC APPOINTMENT REQUEST 1 022 ONCBCN INJECTION APPOINTMENT REQUEST 1 02/11 ONCBCN LAB APPOINTMENT 1 03/10/2022 documented in this encounter Care Teams Network Field Engineer Relationship Specialty Start Date End Date Kraig Ching MD [address] [facility] [address] [place] [address] PCP - General 07/10/16 Gautam Cope MD [address] [facility] [address] [place] [address] Medical Oncologist/Emergency Medical Tech Medical Oncology 08/18/18 Tramaine Roe MD [address] [facility] [address] [place] [address] Referring Physician Urology 08/18/18 Sukhwinder Uribe MD [address] [facility] [address] [place] [address] Consulting Physician Urology 08/18/18 Shay Guillermo MD [address] [address] Referring Physician Urology 08/18/18 Marsha Landis, RN Registered Nurse 11/17/18 documented as of this encounter
--- OUTSIDE RECORDS SUMMARY | 2024-03-31 04:56 | XMS_ITS | Encounter Summary ---
Author Organization [facility] Address [address] [place] [address] Care Team Providers Care Director Of Retail Operations Name Role Phone Kraig Ching MD Primary Care Provider Gautam Cope MD Unavailable Tramaine Roe MD Unavailable [phone] Sukhwinder Uribe MD Unavailable [phone] Shay Guillermo MD Unavailable [phone] Marsha Landis RN Unavailable Unavailab le Reason for Visit * Reason Onset Date Comments Covid-19 Home Monitoring 12/16/2021 Encounter Details Date Type Department Care Team (Late st Contact Info) Description 12/16/2021 Telephone [facility] Accountable Care Organization [address] [place] [address] Priyanka Lynch [address] [place] [address] Covid-19 Home Monitoring Social History Tobacco Use [...] on file 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 SPORTS THERAPIST Gender Identity Not on file Sexual Orientation Not on file documented as of this encounter Miscellaneous Notes * Telephone Encounter - Priyanka Lynch MA - 12/16/2021 11:25 AM CDT This patient has enrolled in the PHONE ONLY version of COVID-19 Home Monitoring Program. COVID-19 Symptom questionnaire was completed today. Symptoms were addressed to be Mild. Escalation was not needed. This patient is being disenrolled from the phone-only version of the COVID-19 home monitoring program for the following reason: Opted out This patient has requested to opt out of the phone-only COVID-19 home monitoring program before meeting completion criteria. The patient is also aware of the phone number to call if they have furtherquestions or if their symptoms get worse: . Patient states he does not have any symptoms. documented in this encounter Plan of Treatment [...] to monitor diabetes and kidney status, etc. [facility] Chronic Pain Care Plan Chronic Care Management No change(03/23 1:47 PM SPORTS THERAPIST) No Ingrid Oden, SHEA Note: Problem: Chronic Pain Goals: 1. Minimize further functional decline 2. Maximize quality of life 3. Control pain Strategies: - Activity/exercise program recommendation - Conservative stepwise pain medicine strategy with multi-disciplinary approach - Recommend healthy lifestyle strategies and compensatory methods as needed documented as of this encounter Visit Diagnoses Not on filedocumented in this encounter Care Teams Director Of Retail Operations Relationship Specialty Start Date End Date Kraig Ching MD [address] [facility] [address] [place] [address] PCP - General 07/10/16 Gautam Cope MD [address] [facility] [address] [place] [address] Medical Oncologist/Wash Plant Operator Medical Oncology 08/18/18 Tramaine Roe MD [address] [facility] [address] [place] [address] Referring Physician Urology 08/18/18 Sukhwinder Uribe MD [address] [facility] [address] [place] [address] Consulting Physician Urology 08/18/18 Shay Guillermo MD [address] [facility] [address] [place] [address] Referring Physician Urology 08/18/18 Marsha Landis, RN Registered Nurse 11/17/18 documented as of this encounter
--- OUTSIDE RECORDS SUMMARY | 2024-03-31 04:56 | XMS_ITS | Encounter Summary ---
Author Organization [facility] Address [address] [place] [address] Care Team Providers Care Licensed Insurance Agent Name Role Phone Kraig Ching MD Primary Care Provider [phone] Gautam Cope MD Unavailable Tramaine Roe MD Unavailable [phone] Sukhwinder Uribe MD Unavailable [phone] Shay Guillermo MD Unavailable [phone] Marsha Landis RN Unavailable Unavailab le Reason for Visit * Reason Comments Covid Positive 11/24. Sx re turn, fever and weakness 12/07. 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 Gender Identity Not on file Sexual Orientation Not on file documented as of this encounter Last Filed Vital Signs Vital Sign Reading Time Taken Comments Blood Pressure 179/111 12/12/2021 9:31 AM CDT Pulse 62 12/12/2021 9:31 AM CDT Temperature - - Respiratory Rate - - Oxygen Saturation - - Inhaled Oxygen Concentration - - Weight 97.5 kg (215 lb) 12/12/2021 9:31 AM CDT Height 177.8 cm (5' 10 ) 12/12/2021 9:31 AM CDT Body Mass Index 30.85 12/12/2021 9:31 AM CDT documented in this encounter Progress Notes * Clau Sparks, LILIA - 12/12/2021 10:00 AM CDT Images from the original note were not included. Subjective/Objective Patient ID: David Wei is a 81 y.o. male. Chief Complaint COVID HPI: This was a telemedicine visit with David Wei and which took place via Telephone. During the visit, I was located in the office and the patient was located at home in the [place] [facility]. Thepatient visit started at 9:55am and ended at 10:11am. My total encounter time on 12/12/2021 was 16 minutes which was spent in the activities documented in the note. This includes time spent prior to the visit and after the visit in direct care of the patient. This time does not include time spent in any separately reportable services.. The patient has been informed that the visit may not be secure and acknowledged the information. I have explained the option of participating in a telephone or video visit during the COVID-19 public health emergency to the patient. After being given an opportunity to ask questions about and discuss this type of visit, the patient verbally consented to proceeding with the telephone/video visit.The patient understands that this service replaces an office visit and they may be billed and/or responsible for any applicable copayments. +COVID on 815 at [facility]. Symptoms started on 11/17 with fatigue, low grade fever, weakness, decreased appetite. Had mild SOB. No chest pain or wheezing. No loss of taste or smell. They did call the office, but it he was outside of the window for [employer]. He also has CKD. Symptoms lasted about a week. He started to feel better. However, states he had fatigue, weakness, low grade fever againon Wednesday, 12/07. He did not test again. He is currently receiving treatment for prostate cancer. Ptstates he feels very well today. No recurrence of fever and his appetite has returned. Past Medical History: Diagnosis Date A-fib (CMS/HCC) (HCC) Anemia Chronic pain disorder Diabetes (HCC) Diverticulitis Esophageal stricture GERD (gastroesophageal reflux disease) HTN (hypertension) Low back pain Multiple gastric ulcers Pancreatitis Prostate CA (CMS/HCC) (HCC) w/ radiation post surgery Renal disease 40% functioning Past Surgical History: Procedure Laterality Date CHOLECYSTECTOMY OTHER SURGICAL HISTORY 1998 Extensive abdominal surgery wu Pancreatic abcess/pancreatitis PROSTATECTOMY 1999 Family History: Family History Problem Relation Age of Onset Diabetes type II Other Diabetes mellitus type 2; Hypertension Other Hypertension; Kidney failure Mother Dementia Father Social History: Social History Tobacco Use Smoking status: Former Smokeless tobacco: Never Tobacco comments: Smoking History Packs/day: 10 Cigarettes Substance and Sexual Activity Drug use: Not Currently Sexual activity: Defer Alcohol Use: Not At Risk Frequency of Alcohol Consumption: Never Average Number of Drinks: Not on file Frequency of Binge Drinking: Not on file No problems updated. Current Outpatient Medications on File Prior to Visit Medication Sig Dispense Refill abiraterone (ZYTIGA) 250 mg tablet Take 4 tablets (1,000 mg) by mouth daily. Do not eat anything for at least 2 hours before and for at least 1 hour after 120 tablet 11 BASAGLAR 100 unit/mL (3 mL) pen for injection ADMINISTER 28 UNITS UNDER THE SKIN DAILY 8 mL 11 carvediloL (COREG) 12.5 mg tablet Take 1 tablet (12.5 mg total) by mouth 2 (two) times a day with meals 180 tablet 3 chlorthalidone 25 mg tablet TAKE 1 TABLET(25 MG) BY MOUTH DAILY 90 tablet 3 HYDROcodone-acetaminophen (NORCO) 5-325 mg per tablet Take by mouth every 8 (eight) hours as needed insulin aspart (NovoLOG) 100 unit/mL (3 mL) pen for injection Inject 8 Units under the skin 3 (three) times a day before meals 3 mL 11 Januvia 25 mg tablet TAKE 1 TABLET BY MOUTH DAILY 30 tablet 11 latanoprost (XALATAN) 0.005 % ophthalmic solution lisinopriL (PRINIVIL,ZESTRIL) 20 mg tablet Take 1 tablet (20 mg total) by mouth daily 30 tablet 5 ONETOUCH ULTRA BLUE TEST STRIP strip TEST SUGAR TWICE DAILY 100 each 3 oxyCODONE (ROXICODONE) 5 mg immediate release tablet Take 1 tablet (5 mg total) by mouth every 6 (six) hours as needed for pain [address] (PROTONIX) 40 mg EC tablet TAKE 1 TABLET(40 MG) BY MOUTH DAILY 90 tablet 0 pravastatin (PRAVACHOL) 20 mg tablet TAKE 1 TABLET BY MOUTH EVERY DAY 90 tablet 3 predniSONE (DELTASONE) 5 mg tablet Take 1 tablet (5 mg) by mouth two times a day 60 tablet 10 timolol (TIMOPTIC) 0.5 % ophthalmic solution timolol (TIMOPTIC-XE) 0.5 % ophthalmic gel-forming TRAVATAN Z 0.004 % drops INT 1 DROP INTO OU QHS 5 Accu-Chek Guide test strips strip USE TO TEST BLOOD SUGAR TWICE DAILY DIRECTED 200 strip 2 aspirin 81 mg tablet Take 1 tablet (81 mg total) by mouth daily. 30 tablet 11 blood glucose diagnostic strip gabapentin (NEURONTIN) 100 mg capsule TAKE 2 CAPSULES(200 MG) BY MOUTH EVERY NIGHT (Patient not taking: Reported on 12/12/2021) 60 capsule 3 lancets (Accu-Chek Fastclix Lancet Drum) mis TEST BLOOD SUGAR 204 each 1 pen needle, diabetic (BD Ultra-Fine Short Pen Needle) 31 gauge x 5/16 needle Use as directed to inject insulin once daily.Use inject insulin Three times a day also PT has two different insulin that he use 400 each 11 No current facility-administered medications on file prior to visit. Review of Systems: Review of Systems Constitutional: Negative for chills, fatigue and fever. HENT: Negative for sore throat. Eyes: Negative for visual disturbance. Respiratory: Negative for cough, shortness of breath and wheezing. Cardiovascular: Negative for chest pain. Gastrointestinal: Negative for abdominal pain. Genitourinary: Negative for dysuria. Musculoskeletal: Negative for arthralgias. Skin: Negative for rash. Neurological: Negative for dizziness and headaches. Physical Exam: A&O x3 Breathing sounds unlabored. Speaking normally without difficulty. Assessment/Plan Diagnoses and all orders for this visit: COVID-19 virus infection (Primary) Discussed treatment options. Pt feeling much better. Declines. However, agrees to home monitoring program. Encounter for screening BMI 30.0-30.9,adult [facility]; Future Clau Sparks NP Cosigned by Kraig Ching MD at 12/16/2021 7:44 AM CDT documented in this encounter Plan of [...] to monitor diabetes and kidney status, etc. [facility] Chronic Pain Care Plan Chronic Care Management No change(03/23 1:47 PM AUTO BODY SHOP MANAGER) No Ingrid Oden, SHEA Note: Problem: Chronic Pain Goals: 1. Minimize further functional decline 2. Maximize quality of life 3. Control pain Strategies: - Activity/exercise program recommendation - Conservative stepwise pain medicine strategy with multi-disciplinary approach - Recommend healthy lifestyle strategies and compensatory methods as needed documented as of this encounter Visit Diagnoses Diagnosis COVID-19 virus infection- Primary Encounter for screening BMI 30.0-30.9,adult documented in this encounter Care Teams Licensed Insurance Agent Relationship Specialty Start Date End Date Kraig Ching MD [address] [facility] [address] [place] [address] PCP - General 07/10/16 Gautam Cope MD [address] [facility] [address] [place] [address] Medical Oncologist/Jewel Bearing Turner Medical Oncology 08/18/18 Tramaine Roe MD [address] [facility] [address] [place] [address] Referring Physician Urology 08/18/18 Sukhwinder Uribe MD [address] [facility] [address] [place] [address] Consulting Physician Urology 08/18/18 Shay Guillermo MD [address] [facility] [address] [place] [address] Referring Physician Urology 08/18/18 Marsha Landis, RN Registered Nurse 11/17/18 documented as of this encounter
--- OUTSIDE RECORDS SUMMARY | 2024-03-31 04:56 | XMS_ITS | Encounter Summary ---
Author Organization [facility] Address [address] [place] [address] Care Team Providers Care Loading Unit Operator Name Role Phone Kraig Ching MD Primary Care Provider [phone] Gautam Cope MD Unavailable Tramaine Roe MD Unavailable [phone] Sukhwinder Uribe MD Unavailable [phone] Shay Guillermo MD Unavailable [phone] Marsha Landis RN Unavailable Unavailab le Reason for Visit * Reason Onset Date Comments Medication Request 04/27/2022 Encounter Details Date Type Department Care Team (Late st Contact Info) Description 04/27/2022 Telephone [facility] [address] [facility] [address] [place] [address] Kraig Ching MD [address] [facility] [address] [place] [address] Medication Request Social History Tobacco Use Types Packs/Day [...] on file 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 The patient stated that his pharmacy contacted him today and informed him that his prescription was denied. The patient noted that they did not provide areason as to why If needed, Pharmacy(s) medication(s) should be sent to: [facility] #[id number] Caller???s Callback #: [phone] Additional Comments: See refill encounter from 04.25.22 Does message need to be routed? Yes-Action Needed TESTER documented in this encounter Plan of Treatment [...] to monitor diabetes and kidney status, etc. [facility] Chronic Pain Care Plan Chronic Care Management No change(03/23 1:47 PM CHIP TESTER) No Ingrid Oden, SHEA Note: Problem: Chronic Pain Goals: 1. Minimize further functional decline 2. Maximize quality of life 3. Control pain Strategies: - Activity/exercise program recommendation - Conservative stepwise pain medicine strategy with multi-disciplinary approach - Recommend healthy lifestyle strategies and compensatory methods as needed documented as of this encounter Visit Diagnoses Not on filedocumented in this encounter Care Teams Loading Unit Operator Relationship Specialty Start Date End Date Kraig Ching MD [address] [facility] [address] [place] [address] PCP - General 07/10/16 Gautam Cope MD [address] [facility] [address] [place] [address] Medical Oncologist/Stationary Engineer Apprentice Medical Oncology 08/18/18 Tramaine Roe MD [address] [facility] [address] [place] [address] Referring Physician Urology 08/18/18 Sukhwinder Uribe MD [address] [facility] [address] [place] [address] Consulting Physician Urology 08/18/18 Shay Guillermo MD [address] [facility] [address] [place] [address] Referring Physician Urology 08/18/18 Marsha Landis RN Registered Nurse 11/17/18 documented as of this encounter
--- OUTSIDE RECORDS SUMMARY | 2024-03-31 04:56 | XMS_ITS | Encounter Summary ---
Author Organization [facility] Address [address] [facility] [address] [place] [address] Care Team Providers Care Performance Consultant Name Role Phone Kraig Ching MD Primary Care Provider [phone] Gautam Cope MD Unavailable Tramaine Roe MD Unavailable [phone] Sukhwinder Uribe MD Unavailable [phone] Shay Guillermo MD Unavailable [phone] Marsha Landis RN Unavailable Unavailab le Reason for Visit * Reason Onset Date Comments Prior Auth 03/26/2022 NovoLog Encounter Details Date Type Department Care Team (Late st Contact Info) Description 03/26/2022 Telephone [facility] [address] [facility] [address] [place] [address] Kraig Ching MD [address] [facility] [address] [place], [place] [id number] Prior Auth (NovoLog) Social History Tobacco Use Types Packs/Day Years [...] on file 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 PA was approved STERED DIETETIC TECHNICIAN * Telephone Encounter - Joleen Thibodeaux - 03/26/2022 10:06 AM CST Started pa for pt insulin aspart (NovoLOG) 100 unit/mL (3 mL) pen for injection via covermymeds. Currently waiting on insurance response. STERED DIETETIC TECHNICIAN documented in this encounter Plan of Treatment [...] Chronic Care Management No change(03/23 1:47 PM REGISTERED DIETETIC TECHNICIAN) No Ingrid Oden RN Note: Problem: Chronic Pain Goals: 1. Minimize further functional decline 2. Maximize quality of life 3. Control pain Strategies: - Activity/exercise program recommendation - Conservative stepwise pain medicine strategy with multi-disciplinary approach - Recommend healthy lifestyle strategies and compensatory methods as needed documented as of this encounter Visit Diagnoses Not on filedocumented in this encounter Care Teams Performance Consultant Relationship Specialty [place] [address] [place] [address] [address] [place] [address] PCP - General 07/10/16 Gautam Cope MD [address] [facility] [address] [place] [address] Medical Oncologist/Rn Plasma Center Medical Oncology 08/18/18 Tramaine Roe MD [address] [facility] [address] [place] [address] Referring Physician Urology 08/18/18 Sukhwinder Uribe MD [address] [facility] [address] [place] [address] Consulting Physician Urology 08/18/18 Shay Guillermo MD [address] [facility] [address] [place] [address] Referring Physician Urology 08/18/18 Marsha Landis, RN Registered Nurse 11/17/18 documented as of this encounter
--- OUTSIDE RECORDS SUMMARY | 2024-03-31 04:56 | XMS_ITS | Encounter Summary ---
Author Organization [facility] [address] [facility] Address [address] [place] [address] Phone Care Team Providers Care Wire Winding Machine Operator Name Role Phone Kraig Ching MD Primary Care Provider [phone] Gautam Cope MD Unavailable Tramaine Roe MD Unavailable [phone] Sukhwinder Uribe MD Unavailable [phone] Shay Guillermo MD Unavailable [phone] Marsha Landis RN Unavailable Unavailab le Reason for Referral * MRI/CAT/PET Scan (Routine) - Closed Specialty Diagnoses / Procedures Referred By Saleem t Referred To Contact Radiology Diagnoses Prostate cancer (HCC) Procedures CT chest without contrast Gautam Cope MD [address] [facility] [address] [place] [address] Phone: tel: fax: [address] [address] Referral ID Status Reason Start Date Expiration Date Visits Re quested Visits Authorized [id number] Closed 03/08/2022 04/07/2023 1 1 NSED EMBALMER Encounter Details Date Type Department Care Team (Late st Contact Info) Description 03/08/2022 Orders Only [facility] Oncology [address] 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 Minimize further functional decline 2. Maximize quality of life 3. Control pain Strategies: - Activity/exercise program recommendation - Conservative stepwise pain medicine strategy with multi-disciplinary approach - Recommend healthy lifestyle strategies and compensatory methods as needed documented as of this encounter Results * CT chest without contrast (06/02/2022 1:06 PM LICENSED EMBALMER) Anatomical Region Laterality Modality Body N/A Computed Tomogra phy 06/02/2022 1:36 PM LICENSED EMBALMER Impressions 06/02/2022 1:59 PM LICENSED EMBALMER 1. ??No change in a 7 mm [...] Nhan Sosa M.D. Narrative 06/02/2022 1:59 PM LICENSED EMBALMER EXAMINATION: ??Computed tomography of the chest without [...] prostate documented in this encounter Care Teams Wire Winding Machine Operator Relationship Specialty Start Date End Date Kraig Ching MD [address] [facility] [address] [place], [place] [id number] PCP - General 07/10/16 Gautam Cope MD [address] [place] [address] Medical Oncologist/Director Of Primary Care Medical Oncology 08/18/18 Tramaine Roe MD [address] [facility] [address] [place] [address] Referring Physician Urology 08/18/18 Sukhwinder Uribe MD [id number] [place] [address] Consulting Physician Urology 08/18/18 Shay Guillermo MD [address] [facility] [address] [place] [address] Referring Physician Urology 08/18/18 Marsha Landis RN Registered Nurse 11/17/18 documented as of this encounter
--- OUTSIDE RECORDS SUMMARY | 2024-03-31 04:56 | XMS_ITS | Encounter Summary ---
Author Organization [facility] Healthcare Address [address] [place] [address] Care Team Providers Care Aviation Project Engineer Name Role Phone Kraig Ching MD Primary Care Provider [phone] Gautam Cope MD Unavailable Tramaine Roe MD Unavailable [phone] Sukhwinder Uribe MD Unavailable [phone] Shay Guillermo MD Unavailable [phone] Marsha Landis RN Unavailable Unavailab le Encounter Details Date Type Department Care Team (Latest Contact Info) Description 12/09/2021 8:50 AM CDT - 12/09/2021 11:59 PM CDT Hospital Encounter [facility] [address] [place] [address] Discharge Disposition: Discharge to home or self [...] on file 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 Do not eat anything for at least 2 hours before and for at least 1 hour after 120 tablet 11 04/22/2021 3 Accu-Chek Guide test strips strip USE TO TEST BLOOD SUGAR TWICE DAILY DIRECTED 200 strip 2 12/05/2021 3 aspirin 81 mg tablet Take 1 tablet (81 mg total) by mouth daily. 30 tablet 11 03/07/2018 3 BASAGLAR 100 unit/mL (3 mL) pen for injection ADMINISTER 28 UNITS UNDER THE SKIN DAILY 8 mL 11 04/21/2021 2 blood glucose diagnostic strip 11/10/19 2 3 carvediloL (COREG) 12.5 mg tabletIndication s:CKD (chronic kidney disease) stage 3, GFR 30-59 ml/min (HCC) Take 1 tablet (12.5 mg total) by mouth 2 (two) times a day with meals 180 tablet 3 09/26/2021 3 chlorthalidone 25 mg tablet TAKE 1 TABLET(25 MG) BY MOUTH DAILY 90 tablet 3 10/27/2021 3 gabapentin (NEURONTIN) 100 mg capsule TAKE 2 CAPSULES(200 MG) BY MOUTH EVERY NIGHT 60 capsule 3 01/22/2020 2 HYDROcodone-acet aminophen (NORCO) 5-325 mg per tablet Take by mouth every 8 (eight) hours as needed 08/02/2021 2 insulin aspart (NovoLOG) 100 unit/mL (3 mL) pen for injection Inject 8 Units under the skin 3 (three) times a day before meals 3 mL 11 04/08/2021 2 Januvia 25 mg tabletIndication s:Type 2 diabetes mellitus with stage 3 chronic kidney disease, without long-term current use of insulin (HCC) TAKE 1 TABLET BY MOUTH DAILY 30 tablet 11 02/17/2021 2 lancets (Accu-Chek Fastclix Lancet Drum) [facility] [place] 204 each 1 12/08/2021 3 latanoprost (XALATAN) 0.005 % ophthalmic solution 05/03/2021 3 lisinopriL (PRINIVIL,ZESTRI L) 20 mg tablet Take 1 tablet (20 mg total) by mouth daily 30 tablet 5 10/31/2021 3 ONETOUCH ULTRA BLUE TEST STRIP strip TEST SUGAR TWICE DAILY 100 each 3 09/20/2017 3 oxyCODONE (ROXICODONE) 5 mg immediate release tabletIndication s:Pain Take 1 tablet (5 mg total) by mouth every 6 (six) hours as needed for pain 60 tablet [address] (PROTONIX) 40 mg EC tablet TAKE 1 TABLET(40 MG) BY MOUTH DAILY 90 tablet 12/02/2021 2 pen needle, diabetic (BD Ultra-Fine Short Pen [...] Chronic Care Management No change(03/23 1:47 PM UNLOADING CHECKER) No Ingrid Oden, RN Note: Problem: Chronic Pain Goals: 1. Minimize further functional decline 2. Maximize quality of life 3. Control pain Strategies: - Activity/exercise program recommendation - Conservative stepwise pain medicine strategy with multi-disciplinary approach - Recommend healthy lifestyle strategies and compensatory methods as needed documented as of this encounter Visit Diagnoses Not on filedocumented in this encounter Care Teams Aviation Project Engineer Relationship Specialty Start Date End Date Kraig Ching MD [address] [facility] [address] [place] [address] PCP - General 07/10/16 Gautam Cope MD [address] [facility] [address] [place] [address] Medical Oncologist/Buggy Ladle Tender Medical Oncology 08/18/18 Tramaine Roe MD [address] [facility] [address] [place] [address] Referring Physician Urology 08/18/18 Sukhwinder Uribe MD [address] [facility] [address] [place] [address] Consulting Physician Urology 08/18/18 Shay Guillermo MD [address] [facility] [address] [place] [address] Referring Physician Urology 08/18/18 Marsha Landis, RN Registered Nurse 11/17/18 documented as of this encounter
--- OUTSIDE RECORDS SUMMARY | 2024-03-31 04:56 | XMS_ITS | Encounter Summary ---
Author Organization [facility] Address [address] [place] [address] Phone Care Team Providers Care Ancillary Services Manager Name Role Phone Kraig Chnig MD Primary Care Provider [phone] Gautam Cope MD Unavailable Tramaine Roe MD Unavailable [phone] Sukhwinder Uribe MD Unavailable [phone] Shay Guillermo MD Unavailable [phone] Marsha Landis RN Unavailable Unavailab le Encounter Details Date Type Department Care Team (Late st Contact Info) Description 12/08/2021 Orders Only [facility] Oncology [address] [place] [address] Muna Saleem RN Social History Tobacco Use [...] on file 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 Minimize further functional decline 2. Maximize quality of life 3. Control pain Strategies: - Activity/exercise program recommendation - Conservative stepwise pain medicine strategy with multi-disciplinary approach - Recommend healthy lifestyle strategies and compensatory methods as needed documented as of this encounter Visit Diagnoses Not on filedocumented in this encounter Care Teams Ancillary Services Manager Relationship Specialty Start Date End Date Kraig Ching MD [address] [place] [address] PCP - General 07/10/16 Gautam Cope MD [address] [place] [address] Medical Oncologist/Jumpbasting Machine Operator Medical Oncology 08/18/18 Tramaine Roe MD [address] [place] [address] Referring Physician Urology 08/18/18 Sukhwinder Uribe MD [address] [place] [address] Consulting Physician Urology 08/18/18 Shay Guillermo MD [address] [place] [address] Referring Physician Urology 08/18/18 Marsha Landis, RN Registered Nurse 11/17/18 documented as of this encounter
--- OUTSIDE RECORDS SUMMARY | 2024-03-31 04:56 | XMS_ITS | Encounter Summary ---
Author Organization [facility] Medical Group Address [address] [facility] [address] [place] [address] Care Team Providers Care Granulizing Machine Operator Name Role Phone Kraig Ching MD Primary Care Provider [phone] Gautam Cope MD Unavailable Tramaine Roe MD Unavailable [phone] Sukhwinder Uribe MD Unavailable [phone] Shay Guillermo MD Unavailable [phone] Marsha Landis RN Unavailable Unavailab le Reason for Visit * Reason Onset Date Comments Covid-19 Home Monitoring 12/14/2021 Encounter Details Date Type Department Care Team (Late st Contact Info) Description 12/14/2021 Telephone [facility] Accountable Care Organization [address] [place] [address] Shweta Turcios [address] [facility] [address] [place] [address] Covid-19 Home Monitoring Social History Tobacco Use [...] on file 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 Patient will receive follow up call tomorrow 2nd attempt * Telephone Encounter - Shweta Turcios MA - 12/14/2021 12:00 PM CDT COVID Home Monitoring Unable to Reach Called patient for home monitoring MA assessment Unable to reach patient. Patient will receive follow up call today [facility] day 1 documented in this encounter Plan of Treatment [...] to monitor diabetes and kidney status, etc. [facility] Chronic Pain Care Plan Chronic Care Management No change(03/23 1:47 PM COPYWRITER) No Ingrid Oden, SHEA Note: Problem: Chronic Pain Goals: 1. Minimize further functional decline 2. Maximize quality of life 3. Control pain Strategies: - Activity/exercise program recommendation - Conservative stepwise pain medicine strategy with multi-disciplinary approach - Recommend healthy lifestyle strategies and compensatory methods as needed documented as of this encounter Visit Diagnoses Not on filedocumented in this encounter Care Teams Granulizing Machine Operator Relationship Specialty Start Date End Date Kraig Ching MD [address] [facility] [address] [place] [address] PCP - General 07/10/16 Gautam Cope MD [address] [facility] [address] [place] [address] Medical Oncologist/Meat Service Team Member Medical Oncology 08/18/18 Tramaine Roe MD [address] [facility] [address] [place] [address] Referring Physician Urology 08/18/18 Sukhwinder Uribe MD [address] [facility] [address] [place] [address] Consulting Physician Urology 08/18/18 Shay Guillermo MD [address] [facility] [address] [place] [address] Referring Physician Urology 08/18/18 Marsha Landis, RN Registered Nurse 11/17/18 documented as of this encounter
--- OUTSIDE RECORDS SUMMARY | 2024-03-31 04:56 | XMS_ITS | Encounter Summary ---
Author Organization [facility] Address [address] [place] [address] Phone Care Team Providers Care Vocational Instructor Name Role Phone Kraig Ching MD Primary Care Provider [phone] Gautam Cope MD Unavailable Tramaine Roe MD Unavailable Sukhwinder Uribe MD Unavailable [phone] Shay Guillermo MD Unavailable [phone] Marsha Landis RN Unavailable Unavailab le Encounter Details Date Type Department Care Team (Late st Contact Info) Description 10/28/2021 Telephone [facility] Nephrology [address] 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 Gender Identity Not on file Sexual Orientation Not on file documented as of this encounter Ordered Prescriptions Prescription Sig Dispense Quantity Refills Last Filled Start Date End Date lisinopriL (PRINIVIL,ZESTRIL) 20 mg tablet Take 1 tablet (20 mg total) by mouth daily 30 tablet 5 10/31/2021 05/06/2022 documented in this encounter Miscellaneous Notes * Telephone Encounter - Comfort Barrios [facility] - 11/18/2021 10:41 AM CDT Called to check in on BP since Lisinopril increase to 20mg daily two weeks ago, see previous notes.He has been taking all meds as dir and said BP in a.m still remains higher at 180/80s but goes downby the afternoon to 140s/70s, same as prior to Lisinopril increase. He has not been keeping a log though, I asked he do so BID w/ HR for the next few days and I will call him Wednesday for better update. He v/u. He and were on speaker phone and mentioned he has been feeling ill the past couple of days. C/o nausea yesterday (no vomiting) and today feeling better but has ongoing weakness, fatigue, lightheadedness. Denies fevers, chills, HODGE. I asked about testing for flu/ covid etc, said she isactually in quarantine as she was exposed to covid last Wednesday but asymptomatic and never tested pos itive. She is going to do an at home test on pt and/or get him in for PCR [employer] [facility] drive thru testing today or tomorrow when able. We will touch base again prior to the weekend and I mentioned he should be in contact with PCP about sxs as well. * Telephone Encounter - Lin Guerrero MD - 10/31/2021 2:06 PM CDT Thanks. BP remains high. Can we please ask him to increase lisinopril to 20 mg daily? * Telephone Encounter - Comfort Barrios RMA - 10/31/2021 10:46 AM CDT I made a final call and he did strip picker this morning. I asked him to read off medication bottles andhe did so, med list is accurate and here are his BP meds: Lisinopril 10mg daily Chlorthalidone 25mg daily Carvedilol 12.5mg BID No diuretics I asked how his BP has been running and he said the average in a.m is still low 180s/90s and p.m average is 140s/mid 70s (HR 60s-low 70s) and stated he is feeling well. Only complaint is the intermittent back pain but not bothering him today. He said he is trying to watch his salt intake but could do better. I told him I would relay info and we would be in touch if anything was needed. He is scheduled to see Onc on 12/09 with new labs and will see renal again in Jan. From 10/08 OV note: 2. Hypertension: His BP continues to be poorly controlled. Debilitating back pain is possibly contributing. We are also unsure of BP medications at home. He is currently prescribed carvedilol 12.5 mgbid, lisinopril 10 mg daily, and chlorthalidone 25 mg daily. Amlodipine was self-discontinued sometime ago. We will call him later to confirm his medications and make appropriate adjustment as needed. We also discussed the importance of a low-sodium diet. * Telephone Encounter - Comfort Barrios RMA - 10/28/2021 8:58 AM CDT A few calls made to verify med list, no success yet and he has not read my [employer] msg. Will reach out again this week. ----- Message from Lin Guerrero MD sent at 10/15/2021 12:29 PM CDT ----- Called pt to review his medications (did not know what meds he was taking at home) and left a voicemail to call back. Thanks. documented in this encounter Plan of Treatment [...] monitor diabetes and kidney status, etc. [facility] Chronic Pain Care Plan Chronic Care Management No change(03/23 1:47 PM CUT PRESSMAN) No Ingrid Oden RN Note: Problem: Chronic [...] Start Date End Da te lisinopriL (PRINIVIL,ZESTRIL) 10 mg tablet Take 1 tablet (10 mg total) by mouth daily Reorder 08/08/2021 10/31/2021 documented as of this encounter Care Teams Vocational Instructor Relationship Specialty Start Date End Date Kraig Ching MD [address] [place] [address] PCP - General 07/10/16 Gautam Cope MD [address] [facility] [address] [place] [address] Medical Oncologist/Award Clerk Medical Oncology 08/18/18 Tramaine Roe MD [address] [place] [address] Referring Physician Urology 08/18/18 Sukhwinder Uribe MD [address] [facility] [address] [place] [address] Consulting Physician Urology 08/18/18 Shay Guillermo MD [address] [facility] [address] [place] [address] Referring Physician Urology 08/18/18 Marsha Landis, RN Registered Nurse 11/17/18 documented as of this encounter
--- OUTSIDE RECORDS SUMMARY | 2024-03-31 04:56 | XMS_ITS | Encounter Summary ---
Author Organization [facility] Medical Group Address [address] [facility] [address] [place] [address] Care Team Providers Care Chief Contract Officer Name Role Phone Kraig Ching MD Primary Care Provider [phone] Gautam Cope MD Unavailable Tramaine Roe MD Unavailable [phone] Sukhwinder Uribe MD Unavailable [phone] Shay Guillermo MD Unavailable [phone] Marsha Landis RN Unavailable Unavailab le Reason for Visit * Reason Onset Date Comments Medical Question/Miscellaneous 12/08/2021 Encounter Details Date Type Department Care Team (Late st Contact Info) Description 12/08/2021 Telephone [facility] [address] [facility] [address] [place] [address] Kraig Ching MD [address] [facility] [address] [place] [address] Medical Question/Miscellaneous Social History Tobacco [...] on file 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 Calling for the doctor's awareness. Feeling like he did when he first had covid. Caller???s Call back #: [phone] Does message need to be routed?Yes-Action Needed documented in this encounter Plan of [...] Chronic Care Management No change(03/23 1:47 PM KETTLE WORKER) No Ingrid Oden, SHEA Note: Problem: Chronic Pain Goals: 1. Minimize further functional decline 2. Maximize quality of life 3. Control pain Strategies: - Activity/exercise program recommendation - Conservative stepwise pain medicine strategy with multi-disciplinary approach - Recommend healthy lifestyle strategies and compensatory methods as needed documented as of this encounter Visit Diagnoses Not on filedocumented in this encounter Care Teams Chief Contract Officer Relationship Specialty Start Date End Date Kraig Ching MD [address] [facility] [address] [place], [place] [id number] PCP - General 07/10/16 Gautam Cope MD [address] [facility] [address] [place] [address] Medical Oncologist/Kit Planner Medical Oncology 08/18/18 Tramaine Roe MD [address] [facility] [address] [place] [address] Referring Physician Urology 08/18/18 Sukhwinder Uribe MD [address] [facility] [address] [place] [address] Consulting Physician Urology 08/18/18 Shay Guillermo MD [address] [facility] [address] [place] [address] Referring Physician Urology 08/18/18 Marsha Landis, RN Registered Nurse 11/17/18 documented as of this encounter
--- OUTSIDE RECORDS SUMMARY | 2024-03-31 04:56 | XMS_ITS | Encounter Summary ---
Author Organization [facility] Healthcare Address [address] [place] [address] Care Team Providers Care Automatic Centrifugal Station Operator Name Role Phone Kraig Ching MD Primary Care Provider [phone] Gautam Cope MD Unavailable Tramaine Roe MD Unavailable [phone] Sukhwinder Uribe MD Unavailable [phone] Shay Guillermo MD Unavailable [phone] Marsha Landis RN Unavailable Unavailab le Encounter Details Date Type Department Care Team (Latest Contact Info) Description 12/16/2021 8:21 AM CDT - 12/16/2021 11:59 PM CDT Hospital Encounter [facility] [address] [place] [address] Prostate cancer (CMS/HCC) (HCC) Discharge Disposition: Discharge [...] on file 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 Minimize further functional decline 2. Maximize quality of life 3. Control pain Strategies: - Activity/exercise program recommendation - Conservative stepwise pain medicine strategy with multi-disciplinary approach - Recommend healthy lifestyle strategies and compensatory methods as needed documented as of this encounter Procedures Procedure Name Priority Date/Time Associated Diagnosis Comments EGFR STAT 12/16/2021 7:40 AM CDT Prostate cancer (CMS/HCC) (HCC) DIFFERENTIAL AUTO Routine 12/16/2021 7:4 0 AM CDT Prostate cancer (CMS/HCC) (HCC) CBC WITH AUTO DIFFERENTIAL Routine 12/16/2021 7:40 AM CDT Prostate cancer (CMS/HCC) (HCC) PSA DIAGNOSTIC Routine 12/16/2021 7:40 AM CDT Prostate cancer (CMS/HCC) (HCC) LACTATE DEHYDROGENASE Routine 12/16/2021 7:40 AM CDT Prostate cancer (CMS/HCC) (HCC) COMPREHENSIVE METABOLIC PANEL STAT 12/16/2021 7:40 AM CDT Prostate cancer (CMS/HCC) (HCC) documented in this encounter Results * (ABNORMAL) eGFR (12/16/2021 7:40 AM CDT) eGFR 32(L) 90 - 130 mL/min/1. 73 m2 [facility] Comment: Interpretive Data Reference Interval Normal [...] was last reviewed 2021. Testing performed by: [facility], [address] [place] [phone] Blood 12/16/2021 7:40 AM CDT 12/16/2021 7:41 AM CDT us Gautam Cope MD LAB BLOOD ORDERABLES Final Resul t [facility] One [facility] Department [place] [address] * (ABNORMAL) Differential, auto (12/16/2021 7:40 AM CDT) Neutrophil abs 9.1(H) 1.8 - 6.6 K/cumm [facility] Comment:Testing performed by : [facility], [address] [place] [phone] Lymphocyte abs 1.8 1.2 - 3.3 K/cumm [facility] Comment:Testing performed by : [facility], [address] [place] [phone] Monocyte abs 1.0 0.2 - 1.2 K/cumm [facility] Comment:Testing performed by : [facility], [address] [place] [phone] Eosinophil abs 0.2 0.0 - 0.5 K/cumm [facility] Comment:Testing performed by : [facility], [address] [place] [phone] Basophil abs 0.1 0.0 - 0.2 K/cumm [facility] Comment:Testing performed by : [facility], [address] [place] [phone] Neutrophil pct 75.1 % [facility] Comment: Interpretive Data Percent cell count reference ranges are not reported, since discordance with absolute values may lead to misinterpretation of CBC data. Current Interpretive Data was last revised on 2017. Testing performed by: [facility], [address] [place] [phone] Lymphocyte pct 14.6 % [facility] Comment: Interpretive Data Percent cell count reference ranges are not reported, since discordance with absolute values may lead to misinterpretation of CBC data. Current Interpretive Data was last revised on 2017. Testing performed by: [facility], [address] [place] [phone] Monocyte pct 8.0 % [facility] Comment:Testing performed by : [facility], [address] [place] [phone] Eosinophil pct 1.5 % [facility] Comment:Testing performed by : [facility], [address] [place] [phone] Basophil pct 0.8 % [facility] Comment:Testing performed by : [facility], [address] [place] [phone] Blood 12/16/2021 7:40 AM CDT 12/16/2021 7:41 AM CDT us Gautam Cope MD LAB BLOOD ORDERABLES Final Resul t [facility] One [facility] Department [place] [address] * Lactate dehydrogenase (LD) (12/16/2021 7:40 AM CDT) Lactate dehydrogenase (LDH) 168 100 - 250 Units/L [facility] Comment:Testing performed by : [facility], [address] [place] [phone] Blood 12/16/2021 7:40 AM CDT 12/16/2021 7:41 AM CDT us Gautam Cope MD LAB BLOOD ORDERABLES Final Resul t [facility] One [facility] [place] [address] * (ABNORMAL) CBC with auto differential (12/16/2021 7:40 AM CDT) WBC 12.1(H) 3.8 - 9.8 K/cumm [facility] Comment:Testing performed by : [facility], [address] [place] [phone] Hgb 12.5(L) 13.8 - 17.2 g/dL [facility] Comment:Testing performed by : [facility], [address] [place] [phone] Hct 37.6(L) 40.7 - 50.3 % [facility] Comment:Testing performed by : [address] [phone] Plt 332 140 - 440 K/cumm [facility] Comment:Testing performed by : [facility], [address] [place] [phone] MPV 7.6 6.8 - 10.4 fL [facility] Comment:Testing performed by : [address] [phone] RBC 4.27(L) 4.50 - 5.70 M/cumm [facility] Comment:Testing performed by : [address] [address] MCV 88.0 80.0 - 97.6 fL [facility] Comment:Testing performed by : [address] [address] MCH 29.3 26.7 - 33.7 pg [facility] Comment:Testing performed by : [address] [address] MCHC 33.3 32.7 - 35.5 g/dL [facility] Comment:Testing performed by : [address] [address] RDW CV 14.3 11.8 - 14.6 % [facility] Comment:Testing performed by : [facility], [address] [place] [phone] NRBC abs 0.01 0.00 - 0.01 K/cumm [facility] Comment:Testing performed by : [facility], [address] [place] [phone] Blood 12/16/2021 7:40 AM CDT 12/16/2021 7:41 AM CDT us Gautam Cope MD LAB BLOOD ORDERABLES Final Resul t [facility] One [facility] [place] [address] * (ABNORMAL) Comprehensive metabolic panel (12/16/2021 7:40 AM CDT) Sodium 141 135 - 145 mmol/L [facility] Comment:Testing performed by : [facility], [address] [place] [phone] Potassium, pl 4.5 3.3 - 4.9 mmol/L [facility] Comment:Testing performed by : [facility], [address] [place] [phone] Chloride 104 97 - 110 mmol/L [facility] Comment:Testing performed by : [facility], [address] [place] [phone] CO2 30 22 - 32 mmol/L [facility] Comment:Testing performed by : [facility], [address] [place] [phone] Anion gap 7 2 - 15 mmol/L [facility] Comment:Testing performed by : [facility], [address] [place] [address] BUN 42(H) 8 - 25 mg/dL [facility] Comment:Testing performed by : [facility], [address] [place] [phone] Creatinine 2.05(H) 0.80 - 1.30 mg/dL [facility] Comment:Testing performed by : [facility], [address] [place] [phone] Glucose 109 70 - 199 mg/dL [facility] Comment: [...] was last revised 2017. Testing performed by: [address] [address] Calcium 9.3 8.5 - 10.3 mg/dL [facility] Comment:Testing performed by : [address] [address] Bilirubin, total 0.3 0.1 - 1.2 mg/dL [facility] Comment:Testing performed by : [facility], [address] [place] [phone] Protein, pl 6.8 6.5 - 8.5 g/dL [facility] Comment:Testing performed by : [address] [address] Albumin 4.3 3.5 - 5.0 g/dL [facility] Comment:Testing performed by : [address] [address] Alk phos 114 40 - 130 Units/L [facility] Comment:Testing performed by : [address] [phone] ALT 9 7 - 55 Units/L [facility] Comment:Testing performed by : [address] [address] AST 12 10 - 50 Units/L [facility] Comment:Testing performed by : [address] [phone] Blood 12/16/2021 7:40 AM CDT 12/16/2021 7:41 AM CDT us Gautam Cope MD LAB BLOOD ORDERABLES Final Resul t Performing Organization Address [facility] Co de Phone Number [facility] Department [place] [address] * PSA diagnostic (12/16/2021 7:40 AM CDT) PSA-Total <0.02 <=6.20 ng/mL [facility] Comment: Interpretive Data ?AGE ? SEX [...] Current interpretive data last revised 21. Blood 12/16/2021 7:40 AM CDT 12/16/2021 8:07 AM CDT us Gautam Cope MD LAB BLOOD ORDERABLES Final Resul t Performing Organization Address [facility] Co de Phone Number [facility] [place] [address] documented in this encounter Visit Diagnoses Diagnosis Prostate cancer (HCC) Malignant neoplasm of prostate documented in this encounter Care Teams Automatic Centrifugal Station Operator Relationship Specialty Start Date End Date Kraig Ching MD [address] [facility] [address] [place] [address] PCP - General 07/10/16 Gautam Cope MD [address] [facility] [address] [place] [address] Medical Oncologist/State Farm Agent Medical Oncology 08/18/18 Tramaine Roe MD [address] [facility] [address] [place] [address] Referring Physician Urology 08/18/18 Sukhwinder Uribe MD [address] [facility] [address] [place] [address] Consulting Physician Urology 08/18/18 Shay Guillermo MD [address] [facility] [address] [place] [address] Referring Physician Urology 08/18/18 Marsha Landis, RN Registered Nurse 11/17/18 documented as of this encounter
--- OUTSIDE RECORDS SUMMARY | 2024-03-31 04:56 | XMS_ITS | Encounter Summary ---
Author Organization [facility] Address [address] [place] [address] Phone Care Team Providers Care Frame Expander Name Role Phone Kraig Ching MD Primary Care Provider Gautam Cope MD Unavailable Tramaine Roe MD Unavailable [phone] Sukhwinder Uribe MD Unavailable [phone] Shay Guillermo MD Unavailable [phone] Marsha Landis RN Unavailable Unavailab le Reason for Referral * Diagnostic Imaging (Routine) - Closed Specialty Diagnoses / Procedures Referred By Saleem t Referred To Contact Diagnoses Prostate cancer (HCC) Procedures Dexa Axial Skeleton Bone Density 1 or 2 Site Gautam Cope MD [address] [facility] [address] [place] [address] Phone: tel: fax: [facility] [address] [place] [address] Referral ID Status Reason Start Date Expiration Date Visits Re quested Visits Authorized [id number] Closed 03/10/2022 04/09/2023 1 1 RETE STONE FINISHER Encounter Details Date Type Department Care Team (Late st Contact Info) Description 03/10/[address] 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 Minimize further functional decline 2. Maximize quality of life 3. Control pain Strategies: - Activity/exercise program recommendation - Conservative stepwise pain medicine strategy with multi-disciplinary approach - Recommend healthy lifestyle strategies and compensatory methods as needed documented as of this encounter Results * Dexa Axial Skeleton Bone Density 1 or 2 Site (06/10/2022 2:42 PM CONCRETE STONE FINISHER) Anatomical Region Laterality Modality Body N/A Radiographic Roberta ging Narrative 06/10/2022 3:17 PM CONCRETE STONE FINISHER Patient Name: David Wei Date of : 1940 Date of scan: 06/10/2022 Bone mineral density was performed on a HoloScaled Inference Discovery Densitometer. ?? Based on machine cross-calibration [...] mineral density scan were prepared by Sommer Iban R.T.(R)(M)(BD) CBDT who is accredited by the International Society of Clinical Densitometry. The overall patient assessment and scan interpretation were performed by Dionna Peng MD who is certified by the International Society of Clinical Densitometry. [id number] Gautam Cope MD IMG DXA PROCEDURES Final Result documented in this encounter Visit Diagnoses Diagnosis Prostate cancer (HCC)- Primary Malignant neoplasm of prostate Prostate cancer (HCC) Malignant neoplasm of prostate Androgen deprivation therapy Current chronic use of systemic steroids documented in this encounter Care Teams Frame Expander Relationship Specialty Start Date End Date Kraig Ching MD [address] [place] [address] PCP - General 07/10/16 Gautam Cope MD [address] [place] [address] Medical Oncologist/Hospice Educator Medical Oncology 08/18/18 Tramaine Roe MD [address] [place] [address] Referring Physician Urology 08/18/18 Sukhwinder Uribe MD [address] [place] [address] Consulting Physician Urology 08/18/18 Shay Guillermo MD [address] [place] [address] Referring Physician Urology 08/18/18 Marsha Landis, RN Registered Nurse 11/17/18 documented as of this encounter
--- OUTSIDE RECORDS SUMMARY | 2024-03-31 04:56 | XMS_ITS | Encounter Summary ---
Author Organization [facility] Address [address] [place] [address] Phone Care Team Providers Care Nurse School Name Role Phone Kraig Ching MD Primary Care Provider [phone] Gautam Cope MD Unavailable Tramaine Roe MD Unavailable [phone] Sukhwinder Uribe MD Unavailable [phone] Shay Guillermo MD Unavailable [phone] Marsha Landis RN Unavailable Unavailab le Encounter Details Date Type Department Care Team (Late st Contact Info) Description 11/21/2021 Telephone [facility] Nephrology [address] [facility] Advanced Medicine 5th [place] [address] [place] [address] Comfort Barrios RMA Social History [...] on file 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 Called pt to check in, he is feeling much better. BP has steadily gotten more stable the past few mornings and he said all symptoms have subsided. He has not had a + covid test and is checking today just in case. He confirmed he is staying hydrated. A.M BPs this week: 162/90, 150/70, 145/82, 149/75, 139/80 this morning. HR is 60s and p.m BPs averaging 135/75. He will continue to monitor for another week and I will touch base again next Wednesday just to make sure he remains stable. He is very happy for f/u calls and is aware he should call as needed. He is carmen for Onc appt and labs on 12/09 and seeing renal again in Jan. documented in this encounter Plan of Treatment [...] to monitor diabetes and kidney status, etc. [facility] Chronic Pain Care Plan Chronic Care Management No change(03/23 1:47 PM EMPLOYMENT PROGRAM REPRESENTATIVE) No Ingrid Oden, SHEA Note: Problem: Chronic Pain Goals: 1. Minimize further functional decline 2. Maximize quality of life 3. Control pain Strategies: - Activity/exercise program recommendation - Conservative stepwise pain medicine strategy with multi-disciplinary approach - Recommend healthy lifestyle strategies and compensatory methods as needed documented as of this encounter Visit Diagnoses Not on filedocumented in this encounter Care Teams Nurse School Relationship Specialty Start Date End Date Kraig Ching MD [address] [facility] [address] [place] [address] PCP - General 07/10/16 Gautam Cope MD [address] [facility] [address] [place] [address] Medical Oncologist/Software Engineering Associate Manager Medical Oncology 08/18/18 Tramaine Roe MD [address] [facility] [address] [place] [address] Referring Physician Urology 08/18/18 Sukhwinder Uribe MD [address] [facility] [address] [place] [address] Consulting Physician Urology 08/18/18 Shay Guillermo MD [address] [facility] [address] [place] [address] Referring Physician Urology 08/18/18 Marsha Landis, RN Registered Nurse 11/17/18 documented as of this encounter
--- OUTSIDE RECORDS SUMMARY | 2024-03-31 04:56 | XMS_ITS | Encounter Summary ---
Author Organization [facility] Address [address] [place] [address] Phone Care Team Providers Care Sander Hand Name Role Phone Kraig Ching MD Primary Care Provider [phone] Gautam Cope MD Unavailable Tramaine Roe MD Unavailable [phone] Sukhwinder Uribe MD Unavailable [phone] Shay Guillermo MD Unavailable [phone] Marsha Landis RN Unavailable Unavailab le Reason for Visit * Episode Based Medications (Routine) - Authorized Specialty Diagnoses / Procedures Referred By Saleem t Referred To Contact Oncology Diagnoses Prostate cancer (HCC) Procedures OR LEUPROLIDE ACETATE SUSPNSION Leuprolide Every 3 Months - Prostate Gautam Cope MD [address] [facility] [address] [place] [address] Phone: tel: fax: [facility] - Infusion [address] [facility] [address] [place] [address] Referral ID Status Reason Start Date Expiration Date V isits Requested Visits Authorized [id number] Authorized 09/06/2018 07/11/2024 1 50 Encounter Details Date Type Department Care Team (Late st Contact Info) Description 03/10/2022 12:00 PM MEDICAL SERVICE REPRESENTATIVE Infusion [facility] Oncology [address] [facility] Advanced Medicine 7th [place] [phone] Prostate cancer (CMS/HCC) (HCC) (Primary Dx) Social [...] file 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 MEDICAL SERVICE REPRESENTATIVE Gender Identity Not on file Sexual Orientation Not on file documented as of this encounter Nursing Notes * Graciela Ruano, SHEA - 03/10/2022 12:00 PM CST Oncology Nursing Note [facility] ON[facility] David Wei is a 81 y.o. male who presents for the following injection: ELIGARD. Nursing Assessment Nursing Assessment Appetite: Good Diarrhea: No Constipation: No Existing Patients: Any falls since your last visit?: No Fatigue: None Mouth Sores: No Nausea/Vomiting: No Neurological symptoms: No Pain: No Shortness of Breath?: No Swelling: No Additional Notes: LEFT ABDOMEN BP: 158/72 Temp: 36.7 ??C (98.1 ??F) Temp src: Oral Pulse: 83 Resp: 18 SpO2: 94 % Weight: 101.3 kg (223 lb 6.4 oz) Patient: met treatment parameters David Wei tolerated injection well Discharge Plan Discharge instructions given to patient. Discharge Mode: Ambulatory Accompanied by: Self Discharged To: Home CAL SERVICE REPRESENTATIVE documented in this encounter Plan of Treatment [...] Care Management No change(03/23 1:47 PM MEDICAL SERVICE REPRESENTATIVE) No Ingrid Oden, SHEA Note: Problem: [...] 22.5 mg 22.5 mg, subcutaneous, Once, On 03/10/22 at 1215, For 1 dose, For subcutaneous use only. Allow product to reach room temperature before using.Indications:Prosta te cancer (HCC) Given 03/10/2022 11:51 AM MEDICAL SERVICE REPRESENTATIVE 22.5 mg Left Lower Abdomen documented in this encounter Orders Nursing Count Last Ordered Date First Orde red Date ONCBCN TREATMENT PARAMETERS 2 1 03/10/2022 Appointment Requests Count Last Ordered Date Fi rst Ordered Date ONCBCN INJECTION APPOINTMENT REQUEST 1 02/11 documented in this encounter Care Teams Sander Hand Relationship Specialty Start Date End Date Kraig Ching MD [address] [place] [address] PCP - General 07/10/16 Gautam Cope MD [address] [place] [address] Medical Oncologist/Commodity Loan Clerk Medical Oncology 08/18/18 Tramaine Roe MD [address] [place] [address] Referring Physician Urology 08/18/18 Sukhwinder Uribe MD [address] [place] [address] Consulting Physician Urology 08/18/18 Shay Guillermo MD [address] [place] [address] Referring Physician Urology 08/18/18 Marsha Landis, RN Registered Nurse 11/17/18 documented as of this encounter
--- OUTSIDE RECORDS SUMMARY | 2024-03-31 04:56 | XMS_ITS | Encounter Summary ---
Author Organization [facility] Address [address] [facility] [address] [place] [address] Care Team Providers Care Antenna Machine Operator Name Role Phone Kraig Ching MD Primary Care Provider [phone] Gautam Cope MD Unavailable Tramaine Roe MD Unavailable Sukhwinder Uribe MD Unavailable [phone] Shay Guillermo MD Unavailable [phone] Marsha Landis RN Unavailable Unavailab le Reason for Visit * Reason Onset Date Comments Medical Records Request 03/18/2022 Encounter Details Date Type Department Care Team (Late st Contact Info) Description 03/18/2022 Telephone [facility] [address] [facility] [address] [place] [address] Kraig Ching MD [address] [facility] [address] [place] [address] Medical Records Request Social History Tobacco Use Types Packs/Day [...] on file 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 ING MACHINE FEEDER * Telephone Encounter - Comfort Salas - 03/18/2022 9:21 AM CST Medical Records Request Request Type: Records Request Practice Will Complete What records are being requested: Copy of patients current insurance card. Who will the records be sent to (if being sent to another doctor, list the doctor's name and specialty)? [facility] Date Needed: ravi Delivery Method: Fax Fax number to use for return of records: [phone] Caller???s Callback #: [phone] Additional Comments/Concerns: Pharmacy states that the patient dropped off a rx for a Rolator but they need a copy of the patient's insurance card. Does the message need to be routed? Yes-Action Needed ING MACHINE FEEDER documented in this encounter Plan of Treatment Not on file documented as of this encounter Goals Goal Patient Goal Type Associated Problems Recent Progress Patient-Stated? Author ZAK General Goal - Patient is knowledgeable about condition when worsening and how to respond ACO Care Management No change(09/06 4:37 PM CDT) No Richmond, Ilene B., RN Note: Problem: Knowledge deficit related to [...] Chronic Care Management No change(03/23 1:47 PM COATING MACHINE FEEDER) No Ingrid Oden RN Note: Problem: Chronic Pain Goals: 1. Minimize further functional decline 2. Maximize quality of life 3. Control pain Strategies: - Activity/exercise program recommendation - Conservative stepwise pain medicine strategy with multi-disciplinary approach - Recommend healthy lifestyle strategies and compensatory methods as needed documented as of this encounter Visit Diagnoses Not on filedocumented in this encounter Care Teams Antenna Machine Operator Relationship Specialty Start Date End Date Kraig Ching MD [address] [facility] [address] [place] [address] PCP - General 07/10/16 Gautam Cope MD [address] [facility] [address] [place] [address] Medical Oncologist/Long Term Care Pharmacist Medical Oncology 08/18/18 Tramaine Roe MD [address] [facility] [address] [place] [address] Referring Physician Urology 08/18/18 Sukhwinder Uribe MD [address] [facility] [address] [place] [address] Consulting Physician Urology 08/18/18 Shay Guillermo MD [address] [facility] [address] [place] [address] Referring Physician Urology 08/18/18 Marsha Landis, RN Registered Nurse 11/17/18 documented as of this encounter
--- OUTSIDE RECORDS SUMMARY | 2024-03-31 04:56 | XMS_ITS | Encounter Summary ---
Author Organization [facility] Address [address] [place] [address] Phone Care Team Providers Care Mint Machine Operator Name Role Phone Kraig Ching MD Primary Care Provider [phone] Gautam Cope MD Unavailable Tramaine Roe MD Unavailable [phone] Sukhwinder Uribe MD Unavailable [phone] Shay Guillermo MD Unavailable [phone] Marsha Landis RN Unavailable Unavailab le Reason for Visit * Episode Based Medications (Routine) - Authorized Specialty Diagnoses / Procedures Referred By Saleem narvaez Referred To Contact Oncology Diagnoses Prostate cancer (HCC) Procedures NE LEUPROLIDE ACETATE SUSPNSION Leuprolide Every 3 Months - Prostate Gautam Cope MD [address] [facility] [address] [place] [address] Phone: tel: fax: [facility] [address] [facility] [address] [place] [address] Referral ID Status Reason Start Date Expiration Date V isits Requested Visits Authorized [id number] Authorized 09/06/2018 07/11/2024 1 50 Encounter Details Date Type Department Care Team (Late st Contact Info) Description 12/16/2021 8:15 AM CDT Office Visit [facility] Oncology [address] [place] [address] 7th [place] [address] [place] [id number] Gautam Cope MD [address] [facility] [address] [place] [address] Prostate cancer (CMS/HCC) (HCC) Social History Tobacco [...] on file 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 Gender Identity Not on file Sexual Orientation Not on file documented as of this encounter Last Filed Vital Signs Vital Sign Reading Time Taken Comments Blood Pressure 183/95 12/16/2021 7:50 AM CDT Pulse 78 12/16/2021 7:50 AM CDT Temperature 36.4 ??C (97.5 ??F) 12/16/2021 7:45 AM CD T Respiratory Rate 18 12/16/2021 7:45 AM CDT Oxygen Saturation 98% 12/16/2021 7:50 AM CDT Inhaled Oxygen Concentration - - Weight 98.4 kg (217 lb) 12/16/2021 7:45 AM CDT Height - - Body Mass Index 31.14 12/12/2021 9:31 AM CDT documented in this encounter Progress Notes * Gautam Cope MD - 12/16/2021 12:00 AM CDT PATIENT NAME: DAVID DREW : 1940 [place]: 12/16/2021 Mr. Drew is an 81-year-old with metastatic prostate cancer. An elevated PSA of 5.5 led to a prostate biopsy followed by a radical prostatectomy performed by Dr. Guillermo in the summer. At that time, he was noted to have Viviana 4 + 3 disease with extracapsular extension and a positive margin. He did receive adjuvant radiation therapy, completing all these treatments by November 1999. In June 2012, 13 years later, his PSA was noted to be rising. By October 2018, he had reached double digits. An MRI scan in August 2018, showed evidence of locally recurrent disease. Additional workup showed evidence of a metastatic deposit at L2. We met the patient after these results had been obtained and started him on a combination of Lupron, abiraterone, and prednisone in October 2018. He had an excellent serological response. He continues to have hot flashes. His major problem since we last saw himin September, which caused him to miss his appointment several weeks ago, is that he developed COVID. This was despite his vaccination and boosters. He was in bed for 2 days and has slowly recovered. He still remains somewhat weak. He has trouble walking. His back pain is less bothersome today. He continues to be followed by Nephrology. He continues with urinary frequency and incontinence. He has no new areas of bone pain or tenderness. Comorbidities include diabetes, chronic kidney disease, hypertension, paroxysmal atrial fibrillation, and hyperlipidemia. PHYSICAL EXAMINATION: Vital Signs: Exam shows a male whose weight is 98.4 kg. Blood pressure is elevated in our office at183/95, pulse 78. He is afebrile. His O2 saturation 98%. Performance Status: His performance status is 70%. Nodes: He has no palpable adenopathy. Lungs: Clear to auscultation and percussion. Cardiac: Shows an S1 and S2. He has developed a harsh early systolic murmur with some irregular heart beats. Abdomen: His abdominal exam shows no hepatosplenomegaly or palpable masses. Extremities: Some trace edema. Neurological: Nonfocal but he does have difficulty getting up to the exam table. His left leg is stronger than his right leg. Skin: Scattered ecchymoses. LABORATORY DATA: Laboratories today show a hemoglobin of 12.5, white count 12,100, platelet count 332,000. His creatinine is somewhat elevated today at 2.05, although it has been higher in the past. His liver function tests are within normal limits. His estimated GFR is only 32. PSA from today remains <0.02 ASSESSMENT AND PLAN: 1. Metastatic prostate cancer, continuing on Lupron, abiraterone, prednisone. Serologically he appears to have good control of his disease. His cancer dates back to 1999 when he underwent a radical prostatectomy, followed by adjuvant radiation therapy. He developed evidence of local recurrence along with a metastatic deposit at L2 when he was started on hormonal therapy in 2019. 2. Diabetes. 3. Difficulty with his weight. He has lost a few kilograms since we last saw him. 4. Chronic kidney disease with a GFR estimated about 30. He is currently being followed by Nephrology. 5. Hypertension, currently controlled by his facer operator. 6. Ground-glass opacities in his lungs. We will plan to obtain a noncontrast chest CT in 6 months. We will see him again 12 weeks from now for further follow-up and additional Lupron administration. ELECTRONICALLY SIGNED - 12/16/2021 06:32 PM Gautam Cope M.D. candy feeder GLORIA/axel documented in this encounter Plan of [...] Chronic Care Management No change(03/23 1:47 PM RED LEAD BURNER) No Ingrid Oden, SHEA Note: Problem: [...] 022 documented in this encounter Care Teams Mint Machine Operator Relationship Specialty Start Date End Date Kraig Ching MD [address] [place] [address] PCP - General 07/10/16 Gautam Cpoe MD [address] [place] [address] Medical Oncologist/Print Manager Medical Oncology 08/18/18 Tramaine Roe MD [address] [facility] [address] [place] [address] Referring Physician Urology 08/18/18 Sukhwinder Uribe MD [address] [facility] [address] [place] [address] Consulting Physician Urology 08/18/18 Shay Guillermo MD [address] [facility] [address] [place] [address] Referring Physician Urology 08/18/18 Marsha Landis RN Registered Nurse 11/17/18 documented as of this encounter
--- OUTSIDE RECORDS SUMMARY | 2024-03-31 04:56 | XMS_ITS | Encounter Summary ---
Author Organization [facility] Address [address] [place] [address] Care Team Providers Care Supervisor Wool Shearing Name Role Phone Kraig Ching MD Primary Care Provider [phone] Gautam Cope MD Unavailable Tramaine Roe MD Unavailable [phone] Sukhwinder Uribe MD Unavailable [phone] Shay Guillermo MD Unavailable [phone] Marsha Landis RN Unavailable Unavailab le Encounter Details Date Type Department Care Team (Latest Contact Info) Description 02/12/2022 12:39 PM CDT - 02/12/2022 11:59 PM CDT Hospital Encounter [facility] [address] [place] [address] Discharge Disposition: Discharge to home or self [...] on file 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.] hours as needed for pain 60 tablet 02/12/[address] (PROTONIX) 40 mg EC [...] Chronic Care Management No change(03/23 1:47 PM DAYLIGHT DRILLER) No Ingrid Oden, SHEA Note: Problem: Chronic Pain Goals: 1. Minimize further functional decline 2. Maximize quality of life 3. Control pain Strategies: - Activity/exercise program recommendation - Conservative stepwise pain medicine strategy with multi-disciplinary approach - Recommend healthy lifestyle strategies and compensatory methods as needed documented as of this encounter Visit Diagnoses Not on filedocumented in this encounter Care Teams Supervisor Wool Shearing Relationship Specialty Start Date End Date Kraig Ching MD [address] [facility] [address] [place] [address] PCP - General 07/10/16 Gautam Cope MD [address] [facility] [address] [place] [address] Medical Oncologist/Delinquency Prevention Social Worker Medical Oncology 08/18/18 Tramaine Roe MD [address] [facility] [address] [place] [address] Referring Physician Urology 08/18/18 Sukhwinder Uribe MD [address] [facility] [address] [place] [address] Consulting Physician Urology 08/18/18 Shay Guillermo MD [address] [facility] [address] [place] [address] Referring Physician Urology 08/18/18 Marsha Landis, RN Registered Nurse 11/17/18 documented as of this encounter
--- OUTSIDE RECORDS SUMMARY | 2024-03-31 04:56 | XMS_ITS | Encounter Summary ---
Author Organization [facility] Address [address] [place] [address] Phone Care Team Providers Care Stereotyper Apprentice Name Role Phone Kraig Ching MD Primary Care Provider Gautam Cope MD Unavailable Tramaine Roe MD Unavailable [phone] Sukhwinder Uribe MD Unavailable [phone] Shay Guillermo MD Unavailable [phone] Marsha Landis RN Unavailable Unavailab le Encounter Details Date Type Department Care Team (Late st Contact Info) Description 03/08/2022 Orders Only [facility] Oncology [address] [facility] 7th [place] [address] [place] [address] Muna Saleem RN Prostate cancer [...] on file 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 Minimize further functional decline 2. Maximize quality of life 3. Control pain Strategies: - Activity/exercise program recommendation - Conservative stepwise pain medicine strategy with multi-disciplinary approach - Recommend healthy lifestyle strategies and compensatory methods as needed documented as of this encounter Results * PSA diagnostic (06/02/2022 10:48 AM BOOK STORE ASSOCIATE) PSA-Total <0.02 <=6.20 ng/mL [facility] Comment: [...] revised 21. Blood 06/02/2022 10:4 8 AM BOOK STORE ASSOCIATE 06/02/2022 11:17 AM BOOK STORE ASSOCIATE us Gautam Cope MD LAB BLOOD ORDERABLES Final Resul t [facility] Department [place] [address] * (ABNORMAL) Comprehensive metabolic panel (06/02/2022 10:48 AM BOOK STORE ASSOCIATE) [facility] Signature Sodium 141 135 - 145 mmol/L [facility] Comment:Testing performed by : [facility], [address] [place] [phone] Potassium, pl 4.5 3.3 - 4.9 mmol/L [facility] Comment:Testing performed by : [facility], [address] [place] [phone] Chloride 101 97 - 110 mmol/L [facility] Comment:Testing performed by : [facility], [address] [place] [phone] CO2 33(H) 22 - 32 mmol/L [facility] Comment:Testing performed by : [facility], [address] [place] [phone] Anion gap 7 2 - 15 mmol/L [facility] Comment:Testing performed by : [facility], [address] [place] [phone] BUN 28(H) 8 - 25 mg/dL [facility] Comment:Testing performed by : [facility], [address] [place] [phone] Creatinine 1.95(H) 0.80 - 1.30 mg/dL [facility] Comment:Testing performed by : [facility], [address] [place] [phone] Glucose 147 70 - 199 mg/dL [facility] Comment: Interpretive Data Fasting glucose >/= [...] was last revised 2022. Testing performed by: [facility], [address] [place] [phone] Calcium 9.6 8.5 - 10.3 mg/dL [facility] Comment:Testing performed by : [facility], [address] [place] [phone] Bilirubin, total 0.6 0.1 - 1.2 mg/dL [facility] Comment:Testing performed by : [facility], [address] [place] [phone] Protein, pl 6.6 6.5 - 8.5 g/dL [facility] Comment:Testing performed by : [facility], [address] [place] [phone] Albumin 4.1 3.5 - 5.0 g/dL [facility] Comment:Testing performed by : [facility], [address] [place] [phone] Alk phos 132(H) 40 - 130 Units/L [facility] Comment:Testing performed by : [facility], [address] [place] [phone] ALT 12 7 - 55 Units/L [facility] Comment:Testing performed by : [facility], [address] [place] [phone] AST 13 10 - 50 Units/L [facility] Comment:Testing performed by : [facility], [address] [place] [phone] Blood 06/02/2022 10:4 8 AM BOOK STORE ASSOCIATE 06/02/2022 10:49 AM BOOK STORE ASSOCIATE us Gautam Cope MD LAB BLOOD ORDERABLES Final Resul t [facility] Department [place] [address] * (ABNORMAL) CBC with auto differential (06/02/2022 10:48 AM BOOK STORE ASSOCIATE) WBC 11.5(H) 3.8 - 9.8 K/cumm [facility] Comment:Testing performed by : [facility], [address] [place] [phone] Hgb 12.9(L) 13.8 - 17.2 g/dL [facility] Comment:Testing performed by : [facility], [address] [place], [place] [phone] Hct 39.4(L) 40.7 - 50.3 % [facility] Comment:Testing performed by : [facility], [address] [place], [place] [phone] Plt 351 140 - 440 K/cumm [facility] Comment:Testing performed by : [facility], [address] [place], [place] [phone] MPV 7.3 6.8 - 10.4 fL [facility] Comment:Testing performed by : [place] [id number] RBC 4.47(L) 4.50 - 5.70 M/cumm [facility] Comment:Testing performed by : [place] [id number] MCV 88.2 80.0 - 97.6 fL [facility] Comment:Testing performed by : [facility], [address] [place], [place] [id number] MCH 28.8 26.7 - 33.7 pg [facility] Comment:Testing performed by : [place] [id number] MCHC 32.7 32.7 - 35.5 g/dL [facility] Comment:Testing performed by : [place] [id number] RDW CV 14.1 11.8 - 14.6 % [facility] Comment:Testing performed by : [facility], [address] [place], [place] [phone] NRBC abs 0.00 0.00 - 0.01 K/cumm [facility] Comment:Testing performed by : [place] [id number] Blood 06/02/2022 10:4 8 AM BOOK STORE ASSOCIATE 06/02/2022 10:49 AM BOOK STORE ASSOCIATE us Gautam Cope MD LAB BLOOD ORDERABLES Final Resul t [facility] Department [place] [address] * Lactate dehydrogenase (LD) (06/02/2022 10:48 AM BOOK STORE ASSOCIATE) Lactate dehydrogenase (LDH) 173 100 - 250 Units/L [facility] Comment:Testing performed by : [facility], [address] [facility] [phone] Blood 06/02/2022 10:4 8 AM BOOK STORE ASSOCIATE 06/02/2022 10:49 AM BOOK STORE ASSOCIATE us Gautam Cope MD LAB BLOOD ORDERABLES Final Resul t Performing Organization Address [facility] Co de Phone Number [facility] [place] [address] documented in this encounter Visit Diagnoses Diagnosis Prostate cancer (HCC)- Primary Malignant neoplasm of prostate documented in this encounter Orders Appointment Requests Count Last Ordered Date Fi rst Ordered Date ONCBCN CLINIC APPOINTMENT REQUEST 1 023 ON[facility]N INJECTION APPOINTMENT REQUEST 05/14 ON[facility]N LAB APPOINTMENT 1 06/02/2022 documented in this encounter Care Teams Stereotyper Apprentice Relationship Specialty Start Date End Date Kraig Ching MD [address] [facility] [address] [place] [address] PCP - General 07/10/16 Gautam Cope MD [address] [facility] [address] [place] [address] Medical Oncologist/Police And Fire Dispatcher Medical Oncology 08/18/18 Tramaine Roe MD [address] [facility] [address] [place] [address] Referring Physician Urology 08/18/18 Sukhwinder Uribe MD [address] [facility] [address] [place] [address] Consulting Physician Urology 08/18/18 Shay Guillermo MD [address] [facility] [address] [place] [address] Referring Physician Urology 08/18/18 Marsha Landis, SHEA Registered Nurse 11/17/18 documented as of this encounter
--- OUTSIDE RECORDS SUMMARY | 2024-03-31 04:56 | XMS_ITS | Encounter Summary ---
Author Organization [facility] Address [address] [place] [address] Phone Care Team Providers Care First Grade Teacher Name Role Phone Kraig Ching MD Primary Care Provider [phone] Gautam Cope MD Unavailable Tramaine Roe MD Unavailable [phone] Sukhwinder Uribe MD Unavailable [phone] Shay Guillermo MD Unavailable [phone] Marsha aLndis RN Unavailable Unavailab le Encounter Details Date Type Department Care Team (Late st Contact Info) Description 12/08/2021 Documentation [facility] Oncology [address] [place] [address] Muna Saleem RN Social History Tobacco Use [...] on file 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 When I called back, answered. He has been feeling ill, general malaise, and weakness for around3 weeks, but had 4-5 that he felt good. When he started feeling bad, sick again, took temp andit was 100. She also had him go get Covid PCR test and it was positive on 11-24-21. She has been telling him to eat, drink a lot and get out of bed more that just twice a day, but he only eats 1/4 of what he did before November and he gets up three to four times a day now. But he does drink a lot of water, per . We discussed things that make people more fatigued, and also less fatigued. I rescheduled him to a week later, 12-16, but I also will call him/them on 12-12 to check on him. documented in this encounter Plan of Treatment [...] Chronic Care Management No change(03/23 1:47 PM HOMEOWNER ASSOCIATION MANAGER) No Ingrid Oden, SHEA Note: Problem: Chronic Pain Goals: 1. Minimize further functional decline 2. Maximize quality of life 3. Control pain Strategies: - Activity/exercise program recommendation - Conservative stepwise pain medicine strategy with multi-disciplinary approach - Recommend healthy lifestyle strategies and compensatory methods as needed documented as of this encounter Visit Diagnoses Not on filedocumented in this encounter Care Teams First Grade Teacher Relationship Specialty Start Date End Date Kraig Ching MD [address] [facility] [address] [place] [address] PCP - General 07/10/16 Gautam Cope MD [address] [facility] [address] [place] [address] Medical Oncologist/Educational Therapist Medical Oncology 08/18/18 Tramaine Roe MD [address] [facility] [address] [place] [address] Referring Physician Urology 08/18/18 Sukhwinder Uribe MD [address] [facility] [address] [place] [address] Consulting Physician Urology 08/18/18 Shay Guillermo MD [address] [facility] [address] [place] [address] Referring Physician Urology 08/18/18 Marsha Landis RN Registered Nurse 11/17/18 documented as of this encounter
--- OUTSIDE RECORDS SUMMARY | 2024-03-31 04:56 | XMS_ITS | Encounter Summary ---
Author Organization [facility] Address [address] [place] [address] Phone Care Team Providers Care Presto Log Operator Name Role Phone Kraig Ching MD Primary Care Provider [phone] Gautam Cope MD Unavailable Tramaine Roe MD Unavailable [phone] Sukhwinder Uribe MD Unavailable [phone] Shay Guillermo MD Unavailable [phone] Marsha Landis RN Unavailable Unavailab le Encounter Details Date Type Department Care Team (Late st Contact Info) Description 12/09/2021 Telephone [facility] Oncology [facility] Advanced Medicine 7th [place] [address] [place] [address] Muna Saleem RN Social History Tobacco Use [...] on file 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 GENERAL PRODUCTION MANAGER Gender Identity Not on file Sexual [...] Chronic Care Management No change(03/23 1:47 PM GENERAL PRODUCTION MANAGER) No Ingrid Oden, RN Note: Problem: Chronic Pain Goals: 1. Minimize further functional decline 2. Maximize quality of life 3. Control pain Strategies: - Activity/exercise program recommendation - Conservative stepwise pain medicine strategy with multi-disciplinary approach - Recommend healthy lifestyle strategies and compensatory methods as needed documented as of this encounter Visit Diagnoses Not on filedocumented in this encounter Care Teams Presto Log Operator Relationship Specialty Start Date End Date Kraig Ching MD [address] [place] [address] PCP - General 07/10/16 Gautam Cope MD [address] [place] [address] Medical Oncologist/Inside Sales Account Representative Medical Oncology 08/18/18 Tramaine Roe MD [address] [place] [address] Referring Physician Urology 08/18/18 Sukhwinder Uribe MD [address] [place] [address] Consulting Physician Urology 08/18/18 Shay Guillermo MD [address] [place] [address] Referring Physician Urology 08/18/18 Marsha Landis, RN Registered Nurse 11/17/18 documented as of this encounter
--- OUTSIDE RECORDS SUMMARY | 2024-03-31 04:56 | XMS_ITS | Encounter Summary ---
Author Organization [facility] Healthcare Address [address] [place] [address] Care Team Providers Care Composite Layup Worker Name Role Phone Kraig Ching MD Primary Care Provider Gautam Cope MD Unavailable Tramaine Roe MD Unavailable [phone] Sukhwinder Uribe MD Unavailable [phone] Shay Guillermo MD Unavailable [phone] Marsha Landis RN Unavailable Unavailab le Encounter Details Date Type Department Care Team (Latest Contact Info) Description 03/10/2022 12:34 PM AEROSPACE PROJECT MANAGER - 03/10/2022 11:59 PM AEROSPACE PROJECT MANAGER Hospital Encounter [facility] [address] [place] [address] Prostate cancer (CMS/HCC) (HCC) Discharge Disposition: Discharge [...] on file 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 AEROSPACE PROJECT MANAGER Gender Identity Not on file Sexual [...] kidney disease) stage 3, GFR 30-59 ml/min ([facility]) Take 1 tablet (12.5 mg total) by [...] 02/10/2022 3 lancets (Accu-Chek Fastclix Lancet Drum) [facility] TEST BLOOD SUGAR 204 each 1 12/08/2021 [...] Chronic Care Management No change(03/23 1:47 PM AEROSPACE PROJECT MANAGER) No Ingrid Oden, RN Note: Problem: Chronic Pain Goals: 1. Minimize further functional decline 2. Maximize quality of life 3. Control pain Strategies: - Activity/exercise program recommendation - Conservative stepwise pain medicine strategy with multi-disciplinary approach - Recommend healthy lifestyle strategies and compensatory methods as needed documented as of this encounter Procedures Procedure Name Priority Date/Time Associated Diagnosis Comments EGFR STAT 03/10/2022 10:10 AM AEROSPACE PROJECT MANAGER Prostate cancer (CMS/HCC) (HCC) DIFFERENTIAL AUTO Routine 03/10/2022 10: 10 AM AEROSPACE PROJECT MANAGER Prostate cancer (CMS/HCC) (HCC) CBC WITH AUTO DIFFERENTIAL Routine 03/10/2022 10:10 AM AEROSPACE PROJECT MANAGER Prostate cancer (CMS/HCC) (HCC) PSA DIAGNOSTIC Routine 03/10/2022 10:10 AM AEROSPACE PROJECT MANAGER Prostate cancer (CMS/HCC) (HCC) LACTATE DEHYDROGENASE Routine 03/10/2022 10:10 AM AEROSPACE PROJECT MANAGER Prostate cancer (CMS/HCC) (HCC) COMPREHENSIVE METABOLIC PANEL STAT 03/10/2022 10:10 AM AEROSPACE PROJECT MANAGER Prostate cancer (CMS/HCC) (HCC) documented in this encounter Results * (ABNORMAL) eGFR (03/10/2022 10:10 AM AEROSPACE PROJECT MANAGER) eGFR 32(L) 90 - 130 mL/min/1. 73 [...] was last reviewed 2021. Testing performed by: [facility], [address] [place] [phone] Blood 03/10/2022 10:1 0 AM AEROSPACE PROJECT MANAGER 03/10/2022 10:13 AM AEROSPACE PROJECT MANAGER us Gautam Cope MD LAB BLOOD ORDERABLES Final Resul t [facility] [place] [address] * (ABNORMAL) Differential, auto (03/10/2022 10:10 AM AEROSPACE PROJECT MANAGER) Neutrophil abs 8.1(H) 1.8 - 6.6 K/cumm [facility] Comment:Testing performed by : [facility], [address] [place] [phone] Lymphocyte abs 1.8 1.2 - 3.3 K/cumm [facility] Comment:Testing performed by : [facility], [address] [place] [phone] Monocyte abs 1.0 0.2 - 1.2 K/cumm [facility] Comment:Testing performed by : [facility], [address] [place] [phone] Eosinophil abs 0.1 0.0 - 0.5 K/cumm [facility] Comment:Testing performed by : [facility], [address] [place] [phone] Basophil abs 0.1 0.0 - 0.2 K/cumm [facility] Comment:Testing performed by : [facility], [address] [place] [phone] Neutrophil pct 73.0 % [facility] Comment: Interpretive Data Percent cell count reference ranges are not reported, since discordance with absolute values may lead to misinterpretation of CBC data. Current Interpretive Data was last revised on 2017. Testing performed by: [facility], [address] [place] [phone] Lymphocyte pct 15.7 % [facility] Comment: Interpretive Data Percent cell count reference ranges are not reported, since discordance with absolute values may lead to misinterpretation of CBC data. Current Interpretive Data was last revised on 2017. Testing performed by: [facility], [address] [place] [phone] Monocyte pct 9.2 % [facility] Comment:Testing performed by : [facility], [address] [place] [phone] Eosinophil pct 1.1 % [facility] Comment:Testing performed by : [facility], [address] [place] [phone] Basophil pct 1.0 % [facility] Comment:Testing performed by : [facility], [address] [place] [phone] Blood 03/10/2022 10:1 0 AM AEROSPACE PROJECT MANAGER 03/10/2022 10:13 AM AEROSPACE PROJECT MANAGER us Gautam Cope MD LAB BLOOD ORDERABLES Final Resul t Performing Organization Address City/State/[facility] Co de Phone Number [facility] [place] [address] * PSA diagnostic (03/10/2022 10:10 AM AEROSPACE PROJECT MANAGER) PSA-Total <0.02 <=6.20 ng/mL [facility] Comment: [...] revised 21. Blood 03/10/2022 10:1 0 AM AEROSPACE PROJECT MANAGER 03/10/2022 10:26 AM AEROSPACE PROJECT MANAGER us Gautam Cope MD LAB BLOOD ORDERABLES Final Resul t Performing Organization Address [facility] de Phone Number [facility] [place] [address] * Lactate dehydrogenase (LD) (03/10/2022 10:10 AM AEROSPACE PROJECT MANAGER) Lactate dehydrogenase (LDH) 166 100 - 250 Units/L [facility] Comment:Testing performed by : [facility], [address] [place] [phone] Blood 03/10/2022 10:1 0 AM AEROSPACE PROJECT MANAGER 03/10/2022 10:13 AM AEROSPACE PROJECT MANAGER us Gautam Cope MD LAB BLOOD ORDERABLES Final Resul t Performing Organization Address [facility] de Phone Number [facility] Department of Laboratories [place], [place] [id number] * (ABNORMAL) CBC with auto differential (03/10/2022 10:10 AM AEROSPACE PROJECT MANAGER) WBC 11.2(H) 3.8 - 9.8 K/cumm [facility] Comment:Testing performed by : [facility], [address] [place] [phone] Hgb 12.2(L) 13.8 - 17.2 g/dL [facility] Comment:Testing performed by : [facility], [address] [place], [place] [phone] Hct 37.2(L) 40.7 - 50.3 % [facility] Comment:Testing performed by : [facility], [address] [place] [address] Plt 328 140 - 440 K/cumm [facility] Comment:Testing performed by : [facility], [address] [place] [address] MPV 7.5 6.8 - 10.4 fL [facility] Comment:Testing performed by : [facility], [address] [place] [address] RBC 4.20(L) 4.50 - 5.70 M/cumm [facility] Comment:Testing performed by : [place] [address] MCV 88.5 80.0 - 97.6 fL [facility] Comment:Testing performed by : [facility], [address] [place] [address] MCH 29.1 26.7 - 33.7 pg [facility] Comment:Testing performed by : [place] [address] MCHC 32.9 32.7 - 35.5 g/dL [facility] Comment:Testing performed by : [place] [address] RDW CV 14.7(H) 11.8 - 14.6 % [facility] Comment:Testing performed by : [facility], [address] [place] [address] NRBC abs 0.00 0.00 - 0.01 K/cumm [facility] Comment:Testing performed by : [place] [address] Blood 03/10/2022 10:1 0 AM AEROSPACE PROJECT MANAGER 03/10/2022 10:13 AM AEROSPACE PROJECT MANAGER us Gautam Cope MD LAB BLOOD ORDERABLES Final Resul t [facility] Department [place] [address] * (ABNORMAL) Comprehensive metabolic panel (03/10/2022 10:10 AM AEROSPACE PROJECT MANAGER) Sodium 138 135 - 145 mmol/L [facility] Comment:Testing performed by : [facility], [address] [place] [phone] Potassium, pl 4.4 3.3 - 4.9 mmol/L [facility] Comment:Testing performed by : [facility], [address] [place] [phone] Chloride 103 97 - 110 mmol/L [facility] Comment:Testing performed by : [facility], [address] [place] [phone] CO2 28 22 - 32 mmol/L [facility] Comment:Testing performed by : [facility], [address] [place] [phone] Anion gap 8 2 - 15 mmol/L [facility] Comment:Testing performed by : [facility], [address] [place] [phone] BUN 42(H) 8 - 25 mg/dL [facility] Comment:Testing performed by : [facility], [address] [place] [phone] Creatinine 2.05(H) 0.80 - 1.30 mg/dL [facility] Comment:Testing performed by : [address] [phone] Glucose 101 70 - 199 mg/dL [facility] Comment: Interpretive Data Fasting glucose [...] was last revised 2017. Testing performed by: [facility], [address] [place] [phone] Calcium 9.1 8.5 - 10.3 mg/dL [facility] Comment:Testing performed by : [facility], [address] [place] [phone] Bilirubin, total 0.4 0.1 - 1.2 mg/dL [facility] Comment:Testing performed by : [facility], [address] [place] [phone] Protein, pl 6.6 6.5 - 8.5 g/dL [facility] Comment:Testing performed by : [facility], [address] [place] [phone] Albumin 4.0 3.5 - 5.0 g/dL [facility] Comment:Testing performed by : [facility], [address] [place] [phone] Alk phos 114 40 - 130 Units/L [facility] Comment:Testing performed by : [facility], [address] [place] [phone] ALT 11 7 - 55 Units/L [facility] Comment:Testing performed by : [facility], [address] [place] [phone] AST 11 10 - 50 Units/L [facility] Comment:Testing performed by : [facility], [address] [place] [phone] Blood 03/10/2022 10:1 0 AM AEROSPACE PROJECT MANAGER 03/10/2022 10:13 AM AEROSPACE PROJECT MANAGER us Gautam Cope MD LAB BLOOD ORDERABLES Final Resul t [facility] [place] [address] documented in this encounter Visit Diagnoses Diagnosis Prostate cancer (HCC) Malignant neoplasm of prostate documented in this encounter Care Teams Composite Layup Worker Relationship Specialty Start Date End Date Kraig Ching MD [address] [place] [address] [address] [place] [address] PCP - General 07/10/16 Gautam Cope MD [address] [facility] [address] [place] [address] Medical Oncologist/Lecturer In Marketing Medical Oncology 08/18/18 Tramaine Roe MD [address] [facility] [address] [place] [address] Referring Physician Urology 08/18/18 Sukhwinder Uribe MD [address] [facility] [address] [place] [address] Consulting Physician Urology 08/18/18 Shay Guillermo MD [address] [facility] [address] [place] [address] Referring Physician Urology 08/18/18 Marsha Landis, RN Registered Nurse 11/17/18 documented as of this encounter
--- OUTSIDE RECORDS SUMMARY | 2024-03-31 04:56 | XMS_ITS | Encounter Summary ---
Author Organization [facility] Medical [facility] Address [address] [place] [address] Care Team Providers Care Marble Carver Name Role Phone Kraig Ching MD Primary Care Provider [phone] Gautam Cope MD Unavailable Tramaine Roe MD Unavailable [phone] Sukhwinder Uribe MD Unavailable [phone] Shay Guillermo MD Unavailable [phone] Marsha Landis RN Unavailable Unavailab le Reason for Visit * Reason Onset Date Comments Fatigue 11/25/2021 Encounter Details Date Type Department Care Team (Late st Contact Info) Description 11/25/2021 Nurse Triage [facility] [address] [facility] [address] [place] [address] Kraig Ching MD [address] [facility] [address] [place] [address] Social History Tobacco Use Types [...] on file 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 Pt states he is feeling better and does not need any further assistance at thistime. * Telephone Encounter - Bettye Buitrago RN - 11/25/2021 10:05 AM CDT last week spend 3 days in bed, sob, weak, no appetite. Covid test was positive. Denies sob, chest pain today. Appetite is getting better. Always has a cough but not worse than normal. Had some diarrhea last week. Last bm was 4 days ago. Feels like he is on the mend but is tired and weak. Afebrile. Advised to be sure and drink fluids, rest and try to eat even if small amounts more frequent. Stay at home, self quarantine, drink fluids, take OTC meds to help with sxs, good hand washing, wear mask and practice social distancing. Home care and emergent sxs reviewed and advised to call back if new or worse sxs or any questions or concerns. Pt understands and will comply. Please advise if anything else needs to be done. Past 5 day window for antiviral med. # [phone] Routed to [facility] Reason for Disposition ? ? MODERATE weakness (i.e., interferes with work, school, normal activities) and persists > 3 days Protocols used: WEAKNESS (GENERALIZED) AND [id number] * Telephone Encounter - Bettye Buitrago RN - 11/25/2021 10:00 AM CDT Regarding: Tried and weak ----- Message from Comfort Salas sent at 11/25/2021 9:58 AM CDT ----- Symptom Based Call Chief Complaint: Tried and weak Did you review 911/Red Flag List?Yes Duration: Symptoms started on 11/17 Why was appointment not scheduled? Red flag Caller's Callback #: [phone] Additional Comments: Patient states that he started having symptoms last week on 11/17 - no energy, SOB, no appetite. On 11/23 patient tested positive for COVID. States that he is on the mend and feeling better but still feeling tired and week. Patient calling to see if there is anything else he should be doing besides resting. Does message need to be routed? 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 Minimize further functional decline 2. Maximize quality of life 3. Control pain Strategies: - Activity/exercise program recommendation - Conservative stepwise pain medicine strategy with multi-disciplinary approach - Recommend healthy lifestyle strategies and compensatory methods as needed documented as of this encounter Visit Diagnoses Not on filedocumented in this encounter Care Teams Marble Carver Relationship Specialty [place] [address] [place] [address] [address] [place] [address] PCP - General 07/10/16 Gautam Cope MD [address] [facility] [address] [place] [address] Medical Oncologist/Nurse Private Duty Medical Oncology 08/18/18 Tramaine Roe MD [address] [facility] [address] [place] [address] Referring Physician Urology 08/18/18 Sukhwinder Uribe MD [address] [facility] [address] [place] [address] Consulting Physician Urology 08/18/18 Shay Guillermo MD [address] [facility] [address] [place] [address] Referring Physician Urology 08/18/18 Marsha Landis, RN Registered Nurse 11/17/18 documented as of this encounter
--- OUTSIDE RECORDS SUMMARY | 2024-03-31 04:56 | XMS_ITS | Encounter Summary ---
Author Organization [facility] Address [address] [place] [address] Care Team Providers Care Extrusion Technician Name Role Phone Kraig Ching MD Primary Care Provider [phone] Gautam Cope MD Unavailable Tramaine Roe MD Unavailable [phone] Sukhwinder Uribe MD Unavailable [phone] Shay Guillermo MD Unavailable [phone] Marsha Landis RN Unavailable Unavailab le Encounter Details Date Type Department Care Team (Late st Contact Info) Description 02/12/2022 11:45 AM CDT Office Visit [facility] [address] [place] [address] Kraig Ching MD [address] [facility] [address] [place] [address] Primary hypertension (Primary Dx); Hypertensive kidney disease with stage 3 chronic kidney disease, unspecified whether stage 3a or 3b CKD (HCC); Stage 3b chronic kidney disease (HCC); Gastroesophageal reflux disease, unspecified whether esophagitis present; Chronic bilateral low back pain with bilateral sciatica; Type 2 diabetes mellitus with stage 3a chronic kidney disease, with long-term current use of insulin (HCC); Hyperlipidemia, unspecified hyperlipidemia type; Allergy to statin medication Social History Tobacco Use Types Packs/Day Years [...] on file 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 [employer] Gender Identity Not on file Sexual Orientation Not on file documented as of this encounter Last Filed Vital Signs Vital Sign Reading Time Taken Comments Blood Pressure 144/92 02/12/2022 11:31 AM CDT Pulse 71 02/12/2022 11:31 AM CDT Temperature - - Respiratory Rate 20 02/12/2022 11:31 AM CDT Oxygen Saturation 96% 02/12/2022 11:31 AM CDT Inhaled Oxygen Concentration - - Weight 101.2 kg (223 lb) 02/12/2022 11:31 AM CDT Height 177.8 cm (5' 10 ) 02/12/2022 11:31 AM CDT Body Mass Index 32 02/12/2022 11:31 AM CDT documented in this encounter Ordered Prescriptions Prescription Sig Dispense Quantity Refills Last Filled Start Date End Date amLODIPine (NORVASC) 2.5 mg tablet Take 1 tablet (2.5 mg total) by mouth nightly 30 tablet 11 02/12/2022 3 oxyCODONE (ROXICODONE) 5 mg immediate release tabletIndications: Pain Take 1 tablet (5 mg total) by mouth every 6 (six) hours as needed for pain 60 tablet 02/12/2022 3 documented in this encounter Progress Notes * Kraig Ching MD - 02/12/2022 11:45 AM CDT Subjective/Objective Patient ID: David Wei is a 81 y.o. male. Chief Complaint Hypertension HPI 1.HTN. He is prescribed amlodipine,carvedilol and chlorthalidone. 2.Diabetes. He is prescribed Lantus insulin.He reports compliance with oral medications. A HgbA1C 09/16/21 was elevated at 8.4.Diabetes is complicated by hyperlipidemia. He is prescribed pravastatin. He is intolerant of atorvastatin. He is taking prednisone daily for prostate cancer.Diabetes is complciated by CKD. His creatinine was 2.05 on 12/16/21. 3.GERD. GERD symptoms are controlled on pantoprazole. 4.Back Pain. 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 He notes frequent back pain and difficulty getting to the bathroom.He uses oxycodone as needed. Review of Systems Constitutional: Positive for fatigue. HENT: Negative for sore throat. Respiratory: Negative for shortness of breath. Cardiovascular: Negative for chest pain. Gastrointestinal: Negative for abdominal pain. Musculoskeletal: Positive for back pain. Skin: Negative for rash. Neurological: Negative for dizziness. BP 144/92 (BP Location: Left arm, Patient Position: Sitting) Pulse 71 Resp 20 Ht 177.8 cm (5'10 ) Wt 101.2 kg (223 lb) SpO2 96% BMI 32.00 kg/m?? Physical Exam Constitutional: Appearance: He is [...] Plan: Hypertension is controlled. Continue current regimen. Hypertensive kidney disease with stage 3 chronic kidney disease, unspecified whether stage 3a or 3bCKD (HCC) (I12.9, N18.30) Assessment & Plan: Hypertension is not controlled. Continue current regimen and start amlodipine at night. Limit nephrotoxins. Reviewed creatinine. Stage 3b chronic kidney disease (HCC) (N18.32) Assessment & Plan: Limit nephrotoxins. Monitor creatinine. Avoid NSAIDS.Follow with Nephrology. Orders: - Basic metabolic panel; Future Gastroesophageal reflux disease, unspecified whether esophagitis present (K21.9) Assessment & Plan: Reviewed dietary modifications. Continue PPI. 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 Continue home PT exercises. A prescription for a walker. Orders: - Walker Type 2 diabetes mellitus with stage 3a chronic kidney disease, with long-term current use of insulin ([facility]) (E11.22, N18.31, Z79.4) - Hemoglobin A1c; Future Hyperlipidemia, unspecified hyperlipidemia type (E78.5) - Lipid panel; Future Allergy to statin medication (Z88.8) Other orders - Flu Vaccine Quad High Dose PF 65Y+ IM - Fluzone High Dose Quad - oxyCODONE (ROXICODONE) 5 mg immediate release tablet; Take 1 tablet (5 mg total) by mouth every 6(six) hours as needed for pain - amLODIPine (NORVASC) 2.5 mg tablet; Take 1 tablet (2.5 mg total) by mouth nightly documented in this encounter Miscellaneous Notes * Assessment & Plan Note - Kraig Ching MD - 02/12/2022 6:03 AM CDT Associated Problem(s): Gastroesophageal reflux disease Reviewed dietary modifications. Continue PPI. * Assessment & Plan Note - Kraig Ching MD - 02/12/2022 6:02 AM CDT Associated Problem(s): Chronic bilateral low back pain with bilateral sciatica Continue oxycodone. Continue home PT exercises. A prescription for a walker. * Assessment & Plan Note - Kraig Ching MD - 02/12/2022 6:02 AM CDT Associated Problem(s): Hypertensive kidney disease with chronic kidney disease stage III (HCC) Hypertension is not controlled. Continue current regimen and start amlodipine at night. Limit nephrotoxins. Reviewed creatinine. * Assessment & Plan Note - Kraig Ching MD - 02/12/2022 6:02 AM CDT Associated Problem(s): Chronic kidney disease, stage 3b (HCC) Limit nephrotoxins. Monitor creatinine. Avoid NSAIDS.Follow with Nephrology. * Assessment & Plan Note - Kraig Ching MD - 02/12/2022 6:01 AM CDT Associated Problem(s): Hypertension Hypertension is [...] monitor diabetes and kidney status, etc. [facility] Chronic Pain Care Plan Chronic Care Management No change(03/23 1:47 PM [employer]) No Ingrid Oden, RN Note: Problem: Chronic Pain Goals: 1. Minimize further functional decline 2. Maximize quality of life 3. Control pain Strategies: - Activity/exercise program recommendation - Conservative stepwise pain medicine strategy with multi-disciplinary approach - Recommend healthy lifestyle strategies and compensatory methods as needed documented as of this encounter Results * (ABNORMAL) Basic metabolic panel (02/12/2022 12:01 PM CDT) Sodium 143 135 - 145 mmol/L [facility] Potassium, pl 4.6 3.3 - 4.9 mmol/L [facility] Chloride 105 97 - 110 mmol/L [facility] CO2 32 22 - 32 mmol/L [facility] Anion gap 6 2 - 15 mmol/L [facility] BUN 32(H) 8 - 25 mg/dL [facility] Creatinine 1.93(H) 0.80 - 1.30 mg/dL [facility] Glucose 201(H) 70 - 199 mg/dL [facility] Comment: Interpretive Data Fasting [...] Current interpretive data was last revised 2017. Calcium 8.9 8.5 - 10.3 mg/dL [facility] Blood 02/12/2022 12:0 1 PM CDT 02/12/2022 1:21 PM CDT us Kraig Ching MD LAB BLOOD ORDERABLES Final Re sult [facility] [address] [facility] Department [place] [address] * (ABNORMAL) Lipid panel (02/12/2022 12:01 PM CDT) Cholesterol 200(H) 30 - 199 mg/dL [facility] Comment: Interpretive Data Ages < [...] Data was last revised on 2017. Triglycerides 268(H) <=149 mg/dL [facility] Comment: Interpretive Data Ages < or [...] Data was last revised on 2017. HDL 41 >=40 mg/dL [facility] Comment: Interpretive Data Ages < or [...] was last revised on 2017. LDL, calculated 105 <=129 mg/dL [facility] Comment: Interpretive Data Ages < or [...] was last revised on 2017. Non-HDL Cholesterol 159 mg/dL [facility] Comment: Interpretive Data Ages < [...] last revised on 2017. [facility] Blood 02/12/2022 12:0 1 PM CDT 02/12/2022 1:21 PM CDT us Kraig Ching MD LAB BLOOD ORDERABLES [facility] [address] [facility] [place] [address] * (ABNORMAL) Hemoglobin A1c (02/12/2022 12:01 PM CDT) Hgb A1C 8.4(H) 4.0 - 5.6 % [facility] Estimated Average Glucose 194 mg/dL [facility] Comment: The ADA recommends reporting an estimated Average Glucose (eAG) with all Hemoglobin A1c results using the equation derived from a study of 507 normal and diabetic adults. ??Minority populations were underrepresented and children were not included. ?? (Diabetes Care 2020; 43(S1): S66-S76). ??The eAG is not equivalent to a fasting glucose. 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, with long-term current use of insulin (HCC) Hyperlipidemia, unspecified hyperlipidemia type Allergy to statin medication documented in this encounter Discontinued Medications Medication Sig Discontinue Reason Start Date End Da te gabapentin (NEURONTIN) 100 mg capsule TAKE 2 CAPSULES(200 MG) BY MOUTH EVERY NIGHT Therapy completed 01/22/2020 02/12/2022 HYDROcodone-acetaminophe n (NORCO) 5-325 mg per tablet Take by mouth every 8 (eight) hours as needed Therapy completed 08/02/2021 02/12/2022 oxyCODONE (ROXICODONE) 5 mg immediate release tabletIndications:Pain Take 1 tablet (5 mg total) by mouth every 6 (six) hours as needed for pain Reorder 2021 02/12/2022 documented as of this encounter Orders General Supply Count Last Ordered Date First Or dered Date WALKER 1 02/12/2022 Immunization/Injection Count Last Ordered Date First Ordered Date FLU VACCINE HIGH DOSE QUAD P F 65Y+ IM - FLUZONE HIGH DOS 1 02/12/2022 documented in this encounter Care Teams Extrusion Technician Relationship Specialty Start Date End Date Kraig Ching MD [address] [facility] [address] [place] [address] PCP - General 07/10/16 Gautam Cope MD [id number] [place] [address] Medical Oncologist/Public Health Internship Medical Oncology 08/18/18 Tramaine Roe MD [address] [address] Referring Physician Urology 08/18/18 Sukhwinder Uribe MD [id number] [place] [address] Consulting Physician Urology 08/18/18 Shay Guillermo MD [id number] [place] [address] Referring Physician Urology 08/18/18 Marsha Landis, RN Registered Nurse 11/17/18 documented as of this encounter
--- OUTSIDE RECORDS SUMMARY | 2024-03-31 04:56 | XMS_ITS | Encounter Summary ---
Author Organization [facility] [employer] [facility] Address [address] [place] [address] Phone Care Team Providers Care Machine Accountant Name Role Phone Kraig Ching MD Primary Care Provider [phone] Gautam Cope MD Unavailable Tramaine Roe MD Unavailable [phone] Sukhwinder Uribe MD Unavailable [phone] Shay Guillermo MD Unavailable [phone] Marsha Landis RN Unavailable Unavailab le Reason for Visit * Renal Disease (Routine) - Closed Specialty Diagnoses / Procedures Referred By Contulices t Referred To Contact Nephrology Diagnoses GABRIELA (acute kidney injury) (HCC) Stage 3 chronic kidney disease, unspecified whether stage 3a or 3b CKD (HCC) Kraig Ching MD [address] [facility] [address] [place] [address] Phone: tel: fax: Lin Guerrero MD [address] [facility] [address] [place] [address] Phone: tel: fax: Referral ID Status Reason Start Date Expiration Date V isits Requested Visits Authorized [id number] Closed Specialty Services Required 10/03/2021 07/28/2023 25 Encounter Details Date Type Department Care Team (Late st Contact Info) Description 10/08/2021 9:50 AM CDT Office Visit [facility] Nephrology [address] 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); Vitamin D deficiency Social History Tobacco Use Types Packs/Day Years [...] on file 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 PATIENT SUPPORT SPECIALIST Gender Identity Not on file Sexual Orientation Not on file documented as of this encounter Last Filed Vital Signs Vital Sign Reading Time Taken Comments Blood Pressure 181/93 10/08/2021 10:21 AM CDT Pulse 62 10/08/2021 10:21 AM CDT Temperature 36.6 ??C (97.9 ??F) 10/08/2021 10:05 AM C DT Respiratory Rate - - Oxygen Saturation - - Inhaled Oxygen Concentration - - Weight 99.6 kg (219 lb 9.6 oz) 10/08/2021 10:05 AM CDT Height 177.8 cm (5' 10 ) 10/08/2021 10:05 AM CDT Body Mass Index 31.51 10/08/2021 10:05 AM CDT documented in this encounter Progress Notes * Gabi Oliva MD - 10/08/2021 9:50 AM CDT NEPHROLOGY SUBSEQUENT OFFICE VISIT NOTE NAME: DAVID DREW DATE OF : 1940 DATE OF VISIT: 10/08/2021 MEDICAL PROBLEM LIST: 1. CKD stage 3 likely secondary to diabetes mellitus and hypertension 2. COPD 3. Paroxysmal atrial fibrillation, Xarelto on hold 4. Type II diabetes mellitus, not on insulin 5. Essential Hypertension 6. Dyslipidemia 7. Pancreatitis in 1999 8. Duodenal Ulcer, EGD 10/2017 9. Metastatic prostate cancer, diagnosed in 1999, status post radical prostatectomy, adjuvant radiation therapy and hormonal therapy. He is currently on Lupron, abiraterone, and prednisone 10. Prolapsed intervertebral disc REASON FOR OFFICE VISIT: Follow up for CKD INTERVAL HISTORY: Mr. David Drew is a 80 year-old gentleman who returns for follow up of his CKD stage 3. He was last seen in the renal clinic in 09/2020. In the interim, we had multiple phone conversations regarding his BP control and restarted him on lisinopril in 07/2021. He apparently also ran out of amlodipine and did not call us for refills. He called last month with complaints of back pain and UA was not suggestive of UTI and he was instructedto call his PCP for further evaluation. Today, he complains of persistent back pain and states it is due to a prolapsed disc. He states pain is unbearable to a point where he has trouble with ambulation. He denies chest pain, shortness of breath, dizziness, edema, or urinary symptoms. His appetite has been good. BP at home ranges from 140s to 180s and patient reports fluctuating BP in the setting of lower back pain. REVIEW OF SYSTEMS: All other systems are negative. MEDICATIONS: Current Outpatient Medications on File Prior to Visit Medication Sig ??? abiraterone (ZYTIGA) 250 mg tablet Take 4 tablets (1,000 mg) by mouth daily. Do not eat anything for at least 2 hours before and for at least 1 hour after ??? Accu-Chek Fastclix Lancet Drum misc TEST BLOOD SUGAR TWICE DAILY ??? Accu-Chek Guide test strips strip USE TO TEST BLOOD SUGAR TWICE DAILY DIRECTED ??? BASAGLAR 100 unit/mL (3 mL) pen for injection ADMINISTER 28 UNITS UNDER THE SKIN DAILY ??? blood glucose diagnostic strip ??? carvediloL (COREG) 12.5 mg tablet Take 1 tablet (12.5 mg total) by mouth 2 (two) times a day with meals ??? chlorthalidone 25 mg tablet TAKE 1 TABLET(25 MG) BY MOUTH DAILY ??? gabapentin (NEURONTIN) 100 mg capsule TAKE 2 CAPSULES(200 MG) BY MOUTH EVERY NIGHT ??? HYDROcodone-acetaminophen (NORCO) 5-325 mg per tablet Take by mouth every 8 (eight) hours as needed ??? insulin aspart (NovoLOG) 100 unit/mL (3 mL) pen for injection Inject 8 Units under the skin 3 (three) times a day before meals ??? Januvia 25 mg tablet TAKE 1 TABLET BY MOUTH DAILY ??? latanoprost (XALATAN) 0.005 % ophthalmic solution ??? lisinopriL (PRINIVIL,ZESTRIL) 10 mg tablet Take 1 tablet (10 mg total) by mouth daily ??? ONETOUCH ULTRA BLUE TEST STRIP strip TEST SUGAR TWICE DAILY ??? oxyCODONE (ROXICODONE) 5 mg immediate release tablet Take 1 tablet (5 mg total) by mouth every 6 (six) hours as needed for pain ??? pantoprazole DR (PROTONIX) 40 mg EC tablet TAKE 1 TABLET(40 MG) BY MOUTH DAILY ??? pen needle, diabetic (BD Ultra-Fine Short Pen Needle) 31 gauge x 5/16 needle Use as directed to inject insulin once daily.Use inject insulin Three times a day also PT has two different insulin that he use ??? pravastatin (PRAVACHOL) 20 mg tablet TAKE 1 TABLET BY MOUTH EVERY DAY ??? predniSONE (DELTASONE) 5 mg tablet Take 1 tablet (5 mg) by mouth two times a day ??? timolol (TIMOPTIC) 0.5 % ophthalmic solution ??? timolol (TIMOPTIC-XE) 0.5 % ophthalmic gel-forming ??? TRAVATAN Z 0.004 % drops INT 1 DROP INTO OU QHS ??? aspirin 81 mg tablet Take 1 tablet (81 mg total) by mouth daily. No current facility-administered medications on file prior to visit. PHYSICAL EXAM: GENERAL: A very pleasant male in no apparent distress Vitals: 10/08/21 1005 10/08/21 1021 BP: (!) 207/97 (!) 181/93 Pulse: 77 62 Temp: 36.6 ??C (97.9 ??F) Weight: 99.6 kg (219 lb 9.6 oz) Height: 177.8 cm (5' 10 ) [...] No joint swelling or tenderness LABORATORY DATA Sodium Date Value Ref Range Status 10/02/2021 142 135 - 146 mmol/L Final 09/16/2021 143 135 - 145 mmol/L Final Comment: Testing performed by: [facility], [address] [place] [phone] 08/15/2021 141 135 - 146 mmol/L Final Potassium, pl Date Value Ref Range Status 10/02/2021 4.5 3.5 - 5.3 mmol/L Final 09/16/2021 4.7 3.3 - 4.9 mmol/L Final Comment: Testing performed by: [facility], [address] [place] [phone] 08/15/2021 4.6 3.5 - 5.3 mmol/L Final CO2 Date Value Ref Range Status 10/02/2021 28 20 - 32 mmol/L Final 09/16/2021 30 22 - 32 mmol/L Final Comment: Testing performed by: [facility], [address] [place] [phone] 08/15/2021 30 20 - 32 mmol/L Final BUN Date Value Ref Range Status 10/02/2021 42 (H) 7 - 25 mg/dL Final 09/16/2021 35 (H) 8 - 25 mg/dL Final Comment: Testing performed by: [facility], [address] [place] [phone] 08/15/2021 35 (H) 7 - 25 mg/dL Final Creatinine Date Value Ref Range Status 10/02/2021 2.02 (H) 0.70 - 1.11 mg/dL Final Comment: For patients >49 years of age, the reference limit for Creatinine is approximately 13% higher for people identified as -Nepalese. 09/16/2021 1.60 (H) 0.80 - 1.30 mg/dL Final Comment: Testing performed by: [facility], [address] [place] [phone] 08/15/2021 1.99 (H) 0.70 - 1.11 mg/dL Final Comment: For patients >49 years of age, the reference limit for Creatinine is approximately 13% higher for people identified as -Nepalese. Albumin Date Value Ref Range Status 10/02/2021 3.9 3.6 - 5.1 g/dL Final 09/16/2021 4.2 3.5 - 5.0 g/dL Final Comment: Testing performed by: [facility], [address] [place] [phone] 06/24/2021 4.2 3.5 - 5.0 g/dL Final Comment: Testing performed by: [facility], [address] [place] [phone] Calcium Date Value Ref Range Status 10/02/2021 9.2 8.6 - 10.3 mg/dL Final 09/16/2021 9.4 8.5 - 10.3 mg/dL Final Comment: Testing performed by: [facility], [address] [place] [phone] 08/15/2021 8.9 8.6 - 10.3 mg/dL Final Phosphorus, sr Date Value Ref Range Status 10/02/2021 3.9 2.1 - 4.3 mg/dL Final 10/11/2020 4.2 2.1 - 4.3 mg/dL Final 09/24/2020 4.9 (H) 2.1 - 4.3 mg/dL Final Parathyroid hormone, intact Date Value Ref Range Status 10/02/2021 52 16 - 77 pg/mL Final Comment: Interpretive Guide Intact PTH Calcium ------- Normal Parathyroid Normal Normal Hypoparathyroidism Low or Low Normal Low Hyperparathyroidism Primary Normal or High High Secondary High Normal or Low Tertiary High High Non-Parathyroid Hypercalcemia Low or Low Normal High 09/04/2020 40 14 - 64 pg/mL Final Comment: Interpretive Guide Intact PTH Calcium ------- Normal Parathyroid Normal Normal Hypoparathyroidism Low or Low Normal Low Hyperparathyroidism Primary Normal or High High Secondary High Normal or Low Tertiary High High Non-Parathyroid Hypercalcemia Low or Low Normal High PTH Date Value Ref Range Status 11/22/2017 32 15 - 65 pg/mL Final Vitamin D, 25-hydroxy Date Value Ref Range Status 10/15/2020 23 (L) 30 - 80 ng/mL Final 08/22/2019 29 (L) 30 - 80 ng/mL Final Hgb Date Value Ref Range Status 10/02/2021 11.9 (L) 13.2 - 17.1 g/dL Final 09/16/2021 12.5 (L) 13.8 - 17.2 g/dL Final Comment: Testing performed by: [facility], [address] [place] [phone] 06/24/2021 12.9 (L) 13.8 - 17.2 g/dL Final Comment: Testing performed by: [facility], [address] [place] [phone] Protein/creatinine ratio Date Value Ref Range Status 12/07/2019 500 (H) 22 - 128 mg/g creat Final Protein/Creatinine Ratio Date Value Ref Range Status 12/07/2019 0.500 (H) 0.022 - 0.128 mg/mg creat Final DATE Na K CO2 BUN SCr Alb [...] 4.6 03/07/2019 1.75 03/07/2018 1.41 07/22/2016 1.34 10/08/2021: Urine dipstick shows specific gravity 1.020, pH 5.5, 1+ protein, no blood ASSESSMENT AND PLAN: 1. Chronic kidney disease, stage 3b: The etiology of CKD is likely uncontrolled hypertension and diabetes mellitus. Creatinine has fluctuated over the last year and was 2.0 last week. Today, we discussed the importance of improved glycemic and BP control. 2. Hypertension: His BP continues to be [...] discussed the importance of a low-sodium diet. 3. Anemia of CKD: Hemoglobin has remained relatively stable. Will check iron stores with the next set of labs. No need for AHSAN at this time. 4. Secondary hyperparathyroidism: Calcium and phosphorus are normal. 25-OH vitamin D is low at 26 and iPTH is normal. Will confirm if patient is taking vitamin D supplement - if not, will start OTC vitamin D. DISPOSITION: The patient will return follow up in 3 months with labs. Gabi Oliva MD Nephrology fellow [facility] Nephrology (Team Yolanda) Cosigned by Lin Guerrero MD at 10/15/2021 12:30 PM CDT Associated attestation - Lin Guerrero MD - 10/15/2021 12:30 PM CDT I saw and examined the patient on 10/08/2021 and discussed the management of this patient with the renal fellow. I agree with the findings and plan of care as documented in the renal fellow's note. documented in this encounter Miscellaneous Notes * Addendum Note - Meryl Barrientos RMA - 10/08/2021 9:50 AM CDTAddended by: MERYL BARRIENTOS on: 03/26/2022 09:33 AM Modules accepted: Orders ENT SUPPORT SPECIALIST * Addendum Note - Meryl Barrientos RMA - 10/08/2021 9:50 AM CDTAddended by: MERYL BARRIENTOS on: 04/16/2022 10:08 AM Modules accepted: Orders ENT SUPPORT SPECIALIST documented in this encounter Plan of [...] monitor diabetes and kidney status, etc. [facility] Chronic Pain Care Plan Chronic Care Management No change(03/23 1:47 PM PATIENT SUPPORT SPECIALIST) No Ingrid Oden RN Note: Problem: Chronic Pain Goals: 1. Minimize further functional decline 2. Maximize quality of life 3. Control pain Strategies: - Activity/exercise program recommendation - Conservative stepwise pain medicine strategy with multi-disciplinary approach - Recommend healthy lifestyle strategies and compensatory methods as needed documented as of this encounter Procedures Procedure Name Priority Date/Time Associated Diagnosis Comments COPY RECEIVED FROM Routine 07/16/2022 11 :00 AM CDT COPY(IES) SENT TO: Routine 07/16/2022 11 :00 AM CDT URINALYSIS AND REFLEX TO MICROSCOPIC Routine 07/16/2022 11:00 AM CDT Stage 3b chronic kidney disease (HCC) CBC WITH AUTO DIFFERENTIAL Routine 07/16/2022 11:00 AM CDT Stage 3b chronic kidney disease (HCC) VITAMIN D 25 HYDROXY Routine 07/16/2022 11:00 AM CDT Stage 3b chronic kidney disease (HCC) PTH Routine 07/16/2022 11:00 AM CDT Stage 3b chronic kidney disease (HCC) RENAL FUNCTION PANEL Routine 07/16/2022 11:00 AM CDT Stage 3b chronic kidney disease (HCC) POCT URINALYSIS DIPSTICK Routine 10/08/2021 11:25 AM CDT Stage 3b chronic kidney disease (HCC) documented in this encounter Results * Copy received from (07/16/2022 11:00 AM CDT) Copy Rec'd from: [facility] Comment: ?[facility] - INTERNAL MED-RENAL ?[address] ?[place] [address] 07/16/2022 11:0 0 AM CDT 07/16/2022 11:01 AM CDT Gabi Oliva MD LAB BLOOD ORDERABLES Final Resul t Performing Organization Address [facility] de Phone Number [facility] * COPY(IES) SENT TO: (07/16/2022 11:00 AM CDT) COPY(IES) SENT TO: [facility] Comment: ?[facility] INTERNAL MED RENAL ?[address] ?[place] [address] 07/16/2022 11:0 0 AM CDT 07/16/2022 11:01 AM CDT Gabi Oliva MD LAB BLOOD ORDERABLES Final Resul t Performing Organization Address [facility] de Phone Number [facility] * (ABNORMAL) Urinalysis reflex to microscopic (07/16/2022 11:00 AM CDT) Color, ur YELLOW YELLOW [facility] Appearance, ur CLEAR CLEAR [facility] Specific gravity 1.011 1.001 - 1.035 [facility] pH, ur 6.5 5.0 - 8.0 [facility] Glucose, ur NEGATIVE NEGATIVE [facility] Bilirubin, ur NEGATIVE NEGATIVE [facility] Ketones, ur NEGATIVE NEGATIVE [facility] Blood, ur NEGATIVE NEGATIVE [facility] Protein, ur, quant 1+(A) NEGATIVE [facility] Nitrites, ur NEGATIVE NEGATIVE [facility] Leukocyte esterase, ur NEGATIVE NEGATIVE [facility] WBC, ur NONE SEEN < OR = 5 /HPF [facility] RBC, ur NONE SEEN < OR = 2 /HPF [facility] Epithelial cells, squamous, ur NONE SEEN < OR = 5 /HPF [facility] Bacteria, ur, quant NONE SEEN NONE SEEN /HPF [facility] Hyaline cast NONE SEEN NONE SEEN /LPF [facility] Urine 07/16/2022 11:0 0 AM CDT 07/16/2022 11:01 AM CDT us Gabi Oliva MD LAB URINE ORDERABLES Final Resul t Performing Organization Address City/State[facility] Co de Phone Number [facility] [address] [place] [address] * (ABNORMAL) CBC with auto differential (07/16/2022 11:00 AM CDT) WBC 9.5 3.8 - 10.8 Thousand/u L [facility] RBC, POC 4.10(L) 4.20 - 5.80 Million/uL [facility] Hgb 12.1(L) 13.2 - 17.1 g/dL [facility] Hct 37.2(L) 38.5 - 50.0 % [facility] MCV 90.7 80.0 - 100.0 fL [facility] MCH 29.5 27.0 - 33.0 pg [facility] MCHC 32.5 32.0 - 36.0 g/dL [facility] Rdw 13.7 11.0 - 15.0 % [facility] Platelets 317 140 - 400 Thousand/u L [facility] MPV 10.0 7.5 - 12.5 fL [facility] Neutrophils, abs 7,553 1,500 - 7,800 cells/uL [facility] Lymphocytes, abs 1,017 850 - 3,900 cells/uL [facility] Monocyte abs 751 200 - 950 cells/uL [facility] Eosinophils, abs 143 15 - 500 cells/uL [facility] Basophils, abs 38 0 - 200 cells/uL [facility] Neutrophils 79.5 % [facility] Lymphocyte pct 10.7 % [facility] Monocytes 7.9 % [facility] Eosinophils 1.5 % [facility] Basophils 0.4 % [facility] Blood 07/16/2022 11:0 0 AM CDT 07/16/2022 11:01 AM CDT us Gabi Oliva MD LAB BLOOD ORDERABLES Final Resul t [facility] [address] [place] [address] * PTH (07/16/2022 11:00 AM CDT) Parathyroid hormone, intact 66 16 - 77 pg/mL [facility] Comment: Interpretive Guide ?Intact PTH ? Calcium ? ------- Normal Parathyroid ?Normal ? Normal Hypoparathyroidism ?Low or Low Normal ?Low Hyperparathyroidism ?? Primary ?Normal or High ? High ?? Secondary ?High ? Normal or Low ?? Tertiary ? High ? High Non-Parathyroid ?? Hypercalcemia ?Low or Low Normal ?High Blood 07/16/2022 11:0 0 AM CDT 07/16/2022 11:01 AM CDT Gabi Oliva MD LAB BLOOD ORDERABLES Final Resul t Performing Organization Address [facility] de Phone Number [facility] [address] [place] [address] * Vitamin D 25 hydroxy (07/16/2022 11:00 AM CDT) Vitamin D 25-OH 39 30 - 100 ng/mL [facility] Comment: Vitamin D Status ? 25-OH Vitamin D: Deficiency: ?<20 ng/mL Insufficiency: ? 20 - 29 ng/mL Optimal: ? > or = 30 ng/mL For 25-OH Vitamin D testing on patients on D2-supplementation and patients for whom quantitation of D2 and D3 fractions is required, the QuestAssureD(TM) 25-OH VIT D, (D2,D3), LC/MS/MS is recommended: order code 04357 (patients >2yrs). See Note 1 Note 1 For additional information, please refer to http://education.Red Seraphim/faq/RAF414 (This link is being provided for informational/ educational purposes only.) Blood 07/16/2022 11:0 0 AM CDT 07/16/2022 11:01 AM CDT us Gabi Oliva MD LAB BLOOD ORDERABLES Final Resul t Performing Organization Address [facility] Co de Phone Number [facility] [address] [facility] [place] [address] * (ABNORMAL) Renal function panel (07/16/2022 11:00 AM CDT) Glucose 151(H) 65 - 99 mg/dL [facility] Comment: ? Fasting reference interval For someone without known diabetes, a glucose value >125 mg/dL indicates that they may have diabetes and this should be confirmed with a follow-up test. BUN 34(H) 7 - 25 mg/dL [facility] Creatinine 2.27(H) 0.70 - 1.22 mg/dL [facility] eGFR 28(L) > OR = 60 mL/min/1.7 3m2 [facility] Comment: The eGFR is based on the CKD-EPI 2020 equation. To calculate the new eGFR from a previous Creatinine or Cystatin C result, go to https://www.kidney.org/professionals/ kdoqi/gfr%5Fcalculator BUN/creat ratio 15 6 - 22 (calc) [facility] Sodium 139 135 - 146 mmol/L [facility] Potassium, pl 4.8 3.5 - 5.3 mmol/L [facility] Chloride 103 98 - 110 mmol/L [facility] CO2 30 20 - 32 mmol/L [facility] Calcium 8.8 8.6 - 10.3 mg/dL [facility] Phosphorus, sr 3.9 2.1 - 4.3 mg/dL [facility] Albumin 3.8 3.6 - 5.1 g/dL [facility] Blood 07/16/2022 11:0 0 AM CDT 07/16/2022 11:01 AM CDT us Gabi Oliva MD LAB BLOOD ORDERABLES Final Resul t [facility] [address] [address] * (ABNORMAL) POCT urinalysis dipstick (10/08/2021 11:25 AM CDT) Glucose, ur, POC Negative Negative MG/DL Bilirubin, ur, POC Negative Negative, Small, Moderate, Large Ketones, ur, POC Negative Negative Specific Blair, POC 1.020 1.005 - 1.030 Blood, ur, POC Negative Negative pH, ur, POC 5.5 5.0 - 8.0 Protein, ur, POC 1+(A) Negative Urobilinogen, urine, POC 0.2 0.2 - 1.0 mg/dL Nitrite, ur, POC Negative Negative Leukocytes, ur, POC Negative Negative Lot Number [id number] Urine 10/08/2021 11:2 5 AM CDT Lin Guerrero MD POINT OF CARE TEST ORDERABLES Fi nal Result documented in this encounter Visit Diagnoses Diagnosis Hypertension, unspecified type- Primary GABRIELA (acute kidney injury) (HCC) Stage 3b chronic kidney disease (HCC) 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 Medication Sig Dispense Quantity Refills Last Filled Start D ate End Date timolol (TIMOPTIC) 0.5 % ophthalmic solution 09/26/2021 10/30/2022 added in this encounter Orders Outpatient Referral Count Last Ordered Date Fir st Ordered Date AMB REFERRAL TO NEPHROLOGY 1 10/08/2021 documented in this encounter Care Teams Machine Accountant Relationship Specialty Start Date End Date Kraig Ching MD [address] [facility] [address] [place] [address] PCP - General 07/10/16 Gautam Cope MD [address] [facility] [address] [address] [place] [address] Medical Oncologist/Data Processing Operator Medical Oncology 08/18/18 Tramaine Roe MD [address] [facility] [place] [address] Referring Physician Urology 08/18/18 Sukhwinder Uribe MD [address] [facility] [address] [place] [address] Consulting Physician Urology 08/18/18 Shay Guillermo MD [address] [facility] [address] [place] [address] Referring Physician Urology 08/18/18 Marsha Landis, RN Registered Nurse 11/17/18 documented as of this encounter
--- OUTSIDE RECORDS SUMMARY | 2024-03-31 04:56 | XMS_ITS | Encounter Summary ---
Author Organization [facility] of [facility] Address [address] [place] [address] Phone Care Team Providers Care Manager Recruiting Name Role Phone Kraig Ching MD Primary Care Provider [phone] Gautam Cope MD Unavailable Tramaine Roe MD Unavailable [phone] Sukhwinder Uribe MD Unavailable [phone] Shay Guillermo MD Unavailable [phone] Marsha Landis RN Unavailable Unavailab le Reason for Visit * Reason Comments Injections * Episode Based Medications (Routine) - Authorized Specialty Diagnoses / Procedures Referred By Contac t Referred To Contact Oncology Diagnoses Prostate cancer (HCC) Procedures [place] LEUPROLIDE ACETATE SUSPNSION Leuprolide Every 3 Months - Prostate Gautam Cope MD [address] [facility] [address] [place] [address] Phone: tel: fax: [facility] - Infusion [address] [facility] [address] [place] [address] Referral ID Status Reason Start Date Expiration Date V isits Requested Visits Authorized [id number] Authorized 09/06/2018 07/11/2024 1 50 Encounter Details Date Type Department Care Team (Late st Contact Info) Description 12/16/2021 9:30 AM CDT Infusion [facility] Oncology [address] 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 male who presents for the following injection: Leuprolide. Nursing Assessment Nursing Assessment Appetite: Good Diarrhea: No Constipation: No Last BM Date: 12/14/21 Existing Patients: Any falls since your last visit?: No New Patients: Any falls since your last visit?: N/A Fatigue: Occassional Mouth Sores: No Nausea/Vomiting: No Neurological symptoms: No Pain: Yes (lower back) Peripheral Neuropathy: No Pt states has potential to be ?: N/A Shortness of Breath?: No Lungs auscultated PRN: No Pt is on oxygen?: No Skin Condition/Temp: Warm, Dry Oral Mucosa Grade: Normal (0) Abdomen: Soft Swelling: No BP: (!) 183/95 Temp: 36.4 ??C (97.5 ??F) Temp src: Transdermal Pulse: 78 Resp: 18 SpO2: 98 % Weight: 98.4 kg (217 lb) Patient: met treatment parameters David Wei tolerated injection well Additional Notes: Pt tolerated injection well. No signs of reaction noted or reported. Pt discharged to go home. Discharge Plan Discharge instructions given to patient. [...] Care Management No change(03/23 1:47 PM MEDICAL INVESTIGATOR) No Ingrid Oden, SHEA Note: Problem: Chronic [...] 22.5 mg 22.5 mg, subcutaneous, Once, On Wed12/16/21 at 0845, For 1 dose, For subcutaneous use only. Allow product to reach room temperature before using.Indications:Prosta te cancer (HCC) Given 12/16/2021 8:21 AM CDT 22.5 mg Right Lower Abdomen documented in this encounter Orders Nursing Count Last Ordered Date First Orde red Date ONCBCN TREATMENT PARAMETERS 2 1 12/16/2021 Appointment Requests Count Last Ordered Date Fi rst Ordered Date ONCBCN INJECTION APPOINTMENT REQUEST 1 09/2021 documented in this encounter Care Teams Manager Recruiting Relationship Specialty Start Date End Date Kraig Ching MD [address] [facility] [address] [place] [address] PCP - General 07/10/16 Gautam Cope MD [address] [place] [address] Medical Oncologist/General Studies Program Chair Medical Oncology 08/18/18 Tramaine Roe MD [address] [facility] [address] [place] [address] Referring Physician Urology 08/18/18 Sukhwinder Uribe MD [address] [facility] [address] [place] [address] Consulting Physician Urology 08/18/18 Shay Guillermo MD [address] [facility] [address] [place] [address] Referring Physician Urology 08/18/18 Marsha Landis, RN Registered Nurse 11/17/18 documented as of this encounter
--- OUTSIDE RECORDS SUMMARY | 2024-03-31 04:56 | XMS_ITS | Encounter Summary ---
Author Organization [facility] of [facility] Address [address] [place] [address] Phone Care Team Providers Care Sprinkler Driver Name Role Phone Kraig Ching MD Primary Care Provider [phone] Gautam Cope MD Unavailable Tramaine Roe MD Unavailable [phone] Sukhwinder Uribe MD Unavailable [phone] Shay Guillermo MD Unavailable [phone] Marsha Landis RN Unavailable Unavailab le Reason for Visit * Episode Based Medications (Routine) - Authorized Specialty Diagnoses / Procedures Referred By Saleem t Referred To Contact Oncology Diagnoses Prostate cancer (HCC) Procedures [place] LEUPROLIDE ACETATE SUSPNSION Leuprolide Every 3 Months - Prostate Gautam Cope MD [address] [facility] [address] [place] [address] Phone: tel: fax: [facility] - Infusion [address] [facility] [address] [place] [address] Referral ID Status Reason Start Date Expiration Date V isits Requested Visits Authorized [id number] Authorized 09/06/2018 07/11/2024 1 50 Encounter Details Date Type Department Care Team (Late st Contact Info) Description 03/10/2022 10:00 AM RIVERBOAT CAPTAIN Lab [facility] Oncology [address] [facility] Advanced Medicine 7th [place] [address] [place] [id number] Prostate cancer (CMS/HCC) (HCC) Social History Tobacco [...] on file 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 Gender Identity Not on file Sexual Orientation [...] Chronic Care Management No change(03/23 1:47 PM RIVERBOAT CAPTAIN) No Ingrid Oden, RN Note: Problem: Chronic [...] rst Ordered Date ONCBCN LAB APPOINTMENT 1 03/10/2022 documented in this encounter Care Teams Sprinkler Driver Relationship Specialty Start Date End Date Kraig Ching MD [address] [place] [address] PCP - General 07/10/16 Gautam Cope MD [address] [place] [address] Medical Oncologist/Dust Puller Medical Oncology 08/18/18 Tramaine Roe MD [address] [place] [address] Referring Physician Urology 08/18/18 Sukhwinder Uribe MD [address] [facility] [address] [place] [address] Consulting Physician Urology 08/18/18 Shay Guillermo MD [address] [facility] [address] [place] [address] Referring Physician Urology 08/18/18 Marsha Landis, RN Registered Nurse 11/17/18 documented as of this encounter
--- OUTSIDE RECORDS SUMMARY | 2024-03-31 04:56 | XMS_ITS | Encounter Summary ---
Author Organization [facility] of [facility] Address [address] [place] [address] Phone Care Team Providers Care Tire Shop Mechanic Name Role Phone Kraig Ching MD Primary Care Provider [phone] Gautam Cope MD Unavailable Tramaine Roe MD Unavailable [phone] Sukhwinder Uribe MD Unavailable [phone] Shay Guillermo MD Unavailable [phone] Marsha Landis RN Unavailable Unavailab le Encounter Details Date Type Department Care Team (Late st Contact Info) Description 12/12/2021 Orders Only [facility] Oncology [address] [facility] Advanced Medicine 7th [place] [address] [place] [address] Muna Saleem RN Prostate cancer [...] on file 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 Gender Identity Not on file Sexual Orientation [...] Chronic Care Management No change(03/23 1:47 PM ASSISTANT FOREMAN) No Ingrid Oden, RN Note: Problem: Chronic [...] prostate documented in this encounter Care Teams Tire Shop Mechanic Relationship Specialty Start Date End Date Kraig Ching MD [address] [place] [address] PCP - General 07/10/16 Gautam Cope MD [address] [place] [address] Medical Oncologist/Rn Lpn Cna Medical Oncology 08/18/18 Tramaine Roe MD [address] [place] [address] Referring Physician Urology 08/18/18 Sukhwinder Uribe MD [address] [place] [address] Consulting Physician Urology 08/18/18 Shay Guillermo MD [address] [place] [address] Referring Physician Urology 08/18/18 Marsha Landis, RN Registered Nurse 11/17/18 documented as of this encounter
--- OUTSIDE RECORDS SUMMARY | 2024-03-31 04:56 | XMS_ITS | Encounter Summary ---
Author Organization [facility] Address [address] [place] [address] Phone Care Team Providers Care Avionics Electronics Technician Name Role Phone Kraig Ching MD Primary Care Provider [phone] Gautam Cope MD Unavailable Tramaine Roe MD Unavailable [phone] Sukhwinder Uribe MD Unavailable Shay Guillermo MD Unavailable Marsha Landis RN Unavailable Unavailab le Encounter Details Date Type Department Care Team (Late st Contact Info) Description 12/12/2021 Documentation [facility] Oncology [address] [facility] Advanced Medicine 7th [place] [address] [place] [address] Muna Saleem RN Social History Tobacco Use [...] on file 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 He states he has been feeling very well for 6 days, and never had a fever, including now. He tested + on Nov 22. His appt to see Dr Cope is in 4 days, so we will see him on 12-16. documented in this encounter Plan of Treatment [...] Chronic Care Management No change(03/23 1:47 PM MACHINE SHOP LEAD MAN) No Ingrid Oden, SHEA Note: Problem: Chronic Pain Goals: 1. Minimize further functional decline 2. Maximize quality of life 3. Control pain Strategies: - Activity/exercise program recommendation - Conservative stepwise pain medicine strategy with multi-disciplinary approach - Recommend healthy lifestyle strategies and compensatory methods as needed documented as of this encounter Visit Diagnoses Not on filedocumented in this encounter Care Teams Avionics Electronics Technician Relationship Specialty Start Date End Date Kraig Ching MD [address] [facility] [address] [place] [address] PCP - General 07/10/16 Gautam Cope MD [address] [facility] [address] [place] [address] Medical Oncologist/Rate Clerk Medical Oncology 08/18/18 Tramaine Roe MD [address] [facility] [address] [place] [address] Referring Physician Urology 08/18/18 Sukhwinder Uribe MD [address] [facility] [address] [place] [address] Consulting Physician Urology 08/18/18 Shay Guillermo MD [address] [address] Referring Physician Urology 08/18/18 Marsha Landis RN Registered Nurse 11/17/18 documented as of this encounter
--- OUTSIDE RECORDS SUMMARY | 2024-03-31 04:56 | XMS_ITS | Encounter Summary ---
Author Organization [facility] Address [address] [place] [address] Care Team Providers Care Barrel Loader Name Role Phone Kraig Ching MD Primary Care Provider [phone] Gautam Cope MD Unavailable Tramaine Roe MD Unavailable [phone] Sukhwinder Uribe MD Unavailable [phone] Shay Guillermo MD Unavailable [phone] Marsha Landis RN Unavailable Unavailab le Encounter Details Date Type Department Care Team (Late st Contact Info) Description 02/12/2022 Orders Only [facility] Outpatient Lab [address] [facility] [address] [place], [place] [id number] Kraig Ching MD [address] [facility] [address] [place], [place] [id number] Stage 3b chronic kidney disease (HCC); Hyperlipidemia, unspecified hyperlipidemia type; Type 2 diabetes mellitus with stage 3a [...] on file 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 Minimize further functional decline 2. Maximize quality of life 3. Control pain Strategies: - Activity/exercise program recommendation - Conservative stepwise pain medicine strategy with multi-disciplinary approach - Recommend healthy lifestyle strategies and compensatory methods as needed documented as of this encounter Procedures Procedure Name Priority Date/Time Associated Diagnosis Comments EGFR Routine 02/12/2022 12:01 PM CDT Stage 3b chronic kidney disease (HCC) HEMOGLOBIN A1C Routine 02/12/2022 12:01 PM CDT Type 2 diabetes mellitus with stage 3a chronic kidney disease, with long-term current use of insulin (HCC) LIPID PANEL Routine 02/12/2022 12:01 PM CDT Hyperlipidemia, unspecified hyperlipidemia type BASIC METABOLIC PANEL Routine 02/12/2022 12:01 PM CDT Stage 3b chronic kidney disease (HCC) documented in this encounter Results * (ABNORMAL) eGFR (02/12/2022 12:01 PM CDT) [facility] eGFR 34(L) 90 - 130 mL/min/1. 73 m2 [facility] Comment: Interpretive Data Reference Interval Normal ?>/= [...] interpretive data was last reviewed 2021. Blood 02/12/2022 12:0 1 PM CDT 02/12/2022 1:28 PM CDT Kraig Ching MD LAB BLOOD ORDERABLES Final Re sult Performing Organization Address [facility] de Phone Number [facility] Department [place] [address] * (ABNORMAL) Hemoglobin A1c (02/12/2022 12:01 PM CDT) Hgb A1C 8.4(H) 4.0 - 5.6 % [facility] Estimated Average Glucose 194 mg/dL [facility] Comment: The ADA recommends reporting an [...] ORDERABLES Final Re sult Performing Organization Address [facility] de Phone Number [facility] Department [place] [address] * (ABNORMAL) Lipid panel (02/12/2022 12:01 PM CDT) [facility] Cholesterol 200(H) 30 - 199 mg/dL [facility] Comment: Interpretive Data Ages < [...] revised on 2017. Triglycerides 268(H) <=149 mg/dL [facility] Comment: Interpretive Data Ages < or [...] revised on 2017. HDL 41 >=40 mg/dL [facility] Comment: Interpretive Data Ages < or [...] on 2017. LDL, calculated 105 <=129 mg/dL [facility] Comment: Interpretive Data Ages < or [...] revised on 2017. Non-HDL Cholesterol 159 mg/dL [facility] Comment: Interpretive Data Ages < or [...] last revised on 2017. Chol/HDL ratio 5 [facility] Blood 02/12/2022 12:0 1 PM CDT 02/12/2022 1:21 PM CDT Kraig Ching MD LAB BLOOD ORDERABLES Final Re sult [facility] Department [place] [address] * (ABNORMAL) Basic metabolic panel (02/12/2022 12:01 PM CDT) Pathologist [facility] Sodium 143 135 - 145 mmol/L [facility] Potassium, pl 4.6 3.3 - 4.9 mmol/L [facility] Chloride 105 97 - 110 mmol/L [facility] CO2 32 22 - 32 mmol/L [facility] Anion gap 6 2 - 15 mmol/L [facility] BUN 32(H) 8 - 25 mg/dL [facility] Creatinine 1.93(H) 0.80 - 1.30 mg/dL [facility] Glucose 201(H) 70 - 199 mg/dL [facility] Comment: Interpretive Data Fasting glucose >/= [...] 2017. Calcium 8.9 8.5 - 10.3 mg/dL [facility] Blood 02/12/2022 12:0 1 PM CDT 02/12/2022 1:21 PM CDT Kraig Ching MD LAB BLOOD ORDERABLES Final Re sult [facility] Department [place] [address] documented in this encounter Visit Diagnoses Diagnosis Stage 3b chronic kidney disease (HCC) Hyperlipidemia, unspecified hyperlipidemia type Type 2 diabetes mellitus with stage 3a chronic kidney disease, with long-term current use of insulin (HCC) documented in this encounter Care Teams Barrel Loader Relationship Specialty Start Date End Date Kraig Ching MD [address] [place] [address] PCP - General 07/10/16 Gautam Cope MD [address] [place] [address] Medical Oncologist/Access Tech Medical Oncology 08/18/18 Tramaine Roe MD [address] [place] [address] Referring Physician Urology 08/18/18 Sukhwinder Uribe MD [address] [place] [address] Consulting Physician Urology 08/18/18 Shay Guillermo MD [address] [place] [address] Referring Physician Urology 08/18/18 Marsha Landis, RN Registered Nurse 11/17/18 documented as of this encounter
--- OUTSIDE RECORDS SUMMARY | 2024-03-31 04:56 | XMS_ITS | Encounter Summary ---
Author Organization [facility] Address [address] [place] [address] Care Team Providers Care Software Applications Designer Name Role Phone Kraig Ching MD Primary Care Provider [phone] Gautam Cope MD Unavailable Tramaine Roe MD Unavailable [phone] Sukhwinder Uribe MD Unavailable [phone] Shay Guillermo MD Unavailable [phone] Marsha Landis RN Unavailable Unavailab le Reason for Visit * Reason Onset Date Comments Covid-19 Home Monitoring 12/13/2021 Daily C all Encounter Details Date Type Department Care Team (Late st Contact Info) Description 12/13/2021 Telephone [facility] Accountable Care Organization [address] [place] [address] Jaelyn Blakely Covid-19 Home Monitoring (Daily Call) Social History Tobacco Use Types Packs/Day Years [...] on file 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 : No This patient has enrolled in the PHONE ONLY version of COVID-19 Home Monitoring Program. COVID-19 Symptom questionnaire was completed today. Symptoms were addressed to be Mild. Escalation was not needed. Next Program Call Due: 12/14 documented in this encounter Plan of Treatment [...] Chronic Care Management No change(03/23 1:47 PM RELISH MAKER) No Ingrid Oden, SHEA Note: Problem: Chronic Pain Goals: 1. Minimize further functional decline 2. Maximize quality of life 3. Control pain Strategies: - Activity/exercise program recommendation - Conservative stepwise pain medicine strategy with multi-disciplinary approach - Recommend healthy lifestyle strategies and compensatory methods as needed documented as of this encounter Visit Diagnoses Not on filedocumented in this encounter Care Teams Software Applications Designer Relationship Specialty Start Date End Date Kraig Ching MD [address] [place] [address] PCP - General 07/10/16 Gautam Cope MD [address] [place] [address] Medical Oncologist/[facility] Medical Oncology 08/18/18 Tramaine Roe MD [address] [place] [address] Referring Physician Urology 08/18/18 Sukhwinder Uribe MD [address] [facility] [address] [place] [address] Consulting Physician Urology 08/18/18 Shay Guillermo MD [address] [facility] [address] [place] [address] Referring Physician Urology 08/18/18 Marsha Landis, RN Registered Nurse 11/17/18 documented as of this encounter
--- OUTSIDE RECORDS SUMMARY | 2024-03-31 04:56 | XMS_ITS | Encounter Summary ---
Author Organization [facility] Address [address] [place] [address] Phone Care Team Providers Care Telecommunications Professional Name Role Phone Kraig Ching MD Primary Care Provider [phone] Gautam Cope MD Unavailable Tramaine Roe MD Unavailable [phone] Sukhwinder Uribe MD Unavailable [phone] Shay Guillermo MD Unavailable [phone] Marsha Landis RN Unavailable Unavailab le Encounter Details Date Type Department Care Team (Late st Contact Info) Description 12/15/2021 Orders Only [facility] Oncology [address] [facility] Advanced Medicine 7th [place] [address] [place] [phone] Muna Saleem RN Social History Tobacco Use [...] on file 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 Minimize further functional decline 2. Maximize quality of life 3. Control pain Strategies: - Activity/exercise program recommendation - Conservative stepwise pain medicine strategy with multi-disciplinary approach - Recommend healthy lifestyle strategies and compensatory methods as needed documented as of this encounter Visit Diagnoses Not on filedocumented in this encounter Care Teams Telecommunications Professional Relationship Specialty Start Date End Date Kraig Ching MD [address] [place] [address] PCP - General 07/10/16 Gautam Cope MD [address] [place] [address] Medical Oncologist/Compliance Paralegal Medical Oncology 08/18/18 Tramaine Roe MD [address] [place] [address] Referring Physician Urology 08/18/18 Sukhwinder Uribe MD [address] [place] [address] Consulting Physician Urology 08/18/18 Shay Guillermo MD [address] [place] [address] Referring Physician Urology 08/18/18 Marsha Landis, RN Registered Nurse 11/17/18 documented as of this encounter
--- OUTSIDE RECORDS SUMMARY | 2024-03-31 04:56 | XMS_ITS | Encounter Summary ---
Author Organization [facility] [employer] [facility] Address [address] [place] [address] Phone Care Team Providers Care Pharmacy Stock Clerk Name Role Phone Kraig Ching MD Primary Care Provider [phone] Gautam Cope MD Unavailable Tramaine Roe MD Unavailable Sukhwinder Uribe MD Unavailable [phone] Shay Guillermo MD Unavailable [phone] Marsha Landis RN Unavailable Unavailab le Reason for Visit * Episode Based Medications (Routine) - Authorized Specialty Diagnoses / Procedures Referred By Saleem t Referred To Contact Oncology Diagnoses Prostate cancer (HCC) Procedures [place] LEUPROLIDE ACETATE SUSPNSION Leuprolide Every 3 Months - Prostate Gautam Cope MD [address] [facility] [address] [place] [address] Phone: tel: fax: [facility] - Infusion [address] [facility] Floor 5 [place] [address] Referral ID Status Reason Start Date Expiration Date V isits Requested Visits Authorized [id number] Authorized 09/06/2018 07/11/2024 1 50 Encounter Details Date Type Department Care Team (Late st Contact Info) Description 12/16/2021 7:15 AM CDT Lab [facility] Oncology [address] [facility] 7th [place] [id number] Prostate cancer (CMS/HCC) (HCC) Social History Tobacco [...] on file 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 Gender Identity Not on file Sexual [...] Chronic Care Management No change(03/23 1:47 PM JUNIOR DATA ANALYST) No Ingrid Oden, SHEA Note: Problem: Chronic [...] rst Ordered Date ONCBCN LAB APPOINTMENT 1 12/16/2021 documented in this encounter Care Teams Pharmacy Stock Clerk Relationship Specialty Start Date End Date Kraig Ching MD [address] [place] [address] PCP - General 07/10/16 Gautam Cope MD [address] [place] [address] Medical Oncologist/Timber Estimator Medical Oncology 08/18/18 Tramaine Roe MD [address] [facility] [address] [place] [address] Referring Physician Urology 08/18/18 Sukhwinder Uribe MD [address] [facility] [address] [place] [address] Consulting Physician Urology 08/18/18 Shay Guillermo MD [address] [facility] [address] [place] [address] Referring Physician Urology 08/18/18 Marsha Landis, RN Registered Nurse 11/17/18 documented as of this encounter
--- OUTSIDE RECORDS SUMMARY | 2024-03-31 04:56 | XMS_ITS | Encounter Summary ---
Author Organization [facility] [employer] [facility] Address [address] [place] [address] Phone Care Team Providers Care Manager Car Name Role Phone Kraig Ching MD Primary Care Provider [phone] Gautam Cope MD Unavailable Tramaine Roe MD Unavailable [phone] Sukhwinder Uribe MD Unavailable [phone] Shay Guillermo MD Unavailable [phone] Marsha Landis RN Unavailable Unavailab le Reason for Visit * Consultation (Routine) - Authorized Specialty Diagnoses / Procedures Referred By Saleem narvaez Referred To Contact Oncology Diagnoses Prostate cancer (HCC) Tramaine Roe MD [address] [facility] [address] [place] [address] Phone: tel: fax: Gautam Cope MD [address] [facility] [place] [address] Phone: tel: fax: Referral ID Status Reason Start Date Expiration Date Visits Requested Visits Authorized [id number] Authorized Specialty Services Required 08/15/2018 04/11/2024 99 99 Encounter Details Date Type Department Care Team (Late st Contact Info) Description 06/02/2022 10:30 AM FOSTER CARE SOCIAL WORKER Lab [facility] Oncology [address] [facility] 7th [place] [address] [place] [address] Prostate cancer ([facility]) ([facility]) Social History Tobacco Use Types Packs/Day Years [...] on file 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 FOSTER CARE SOCIAL WORKER Gender Identity Not on file Sexual [...] Chronic Care Management No change(03/23 1:47 PM FOSTER CARE SOCIAL WORKER) No Ingrid Oden RN Note: Problem: Chronic [...] rst Ordered Date ONCBCN LAB APPOINTMENT 1 06/02/2022 documented in this encounter Care Teams Manager Car Relationship Specialty Start Date End Date Kraig Ching MD [address] [facility] [address] [place] [address] PCP - General 07/10/16 Gautam Cope MD [address] [facility] [address] [place] [address] Medical Oncologist/Business Process Representative Medical Oncology 08/18/18 Tramaine Roe MD [address] [facility] [address] [place] [address] Referring Physician Urology 08/18/18 Sukhwinder Uribe MD [address] [facility] [address] [place] [address] Consulting Physician Urology 08/18/18 Shay Guillermo MD [address] [facility] [address] [place] [address] Referring Physician Urology 08/18/18 Marsha Landis, RN Registered Nurse 11/17/18 documented as of this encounter
--- OUTSIDE RECORDS SUMMARY | 2024-03-31 04:56 | XMS_ITS | Encounter Summary ---
Author Organization [facility] Address [address] [place] [address] Phone Care Team Providers Care Managed Care Liaison Name Role Phone Kraig Ching MD Primary Care Provider [phone] Gautam Cope MD Unavailable Tramaine Roe MD Unavailable [phone] Sukhwinder Uribe MD Unavailable [phone] Shay Guillermo MD Unavailable [phone] Marsha Landis RN Unavailable Unavailab le Encounter Details Date Type Department Care Team (Late st Contact Info) Description 12/08/2021 Orders Only 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 Minimize further functional decline 2. Maximize quality of life 3. Control pain Strategies: - Activity/exercise program recommendation - Conservative stepwise pain medicine strategy with multi-disciplinary approach - Recommend healthy lifestyle strategies and compensatory methods as needed documented as of this encounter Visit Diagnoses Not on filedocumented in this encounter Care Teams Managed Care Liaison Relationship Specialty Start Date End Date Kraig Ching MD [address] [place] [address] PCP - General 07/10/16 Gautam Cope MD [address] [place] [address] Medical Oncologist/Contractor General Engineering Medical Oncology 08/18/18 Tramaine Roe MD [address] [place] [address] Referring Physician Urology 08/18/18 Sukhwinder Uribe MD [address] [place] [address] Consulting Physician Urology 08/18/18 Shay Guillermo MD [address] [place] [address] Referring Physician Urology 08/18/18 Marsha Landis, RN Registered Nurse 11/17/18 documented as of this encounter
--- OUTSIDE RECORDS SUMMARY | 2024-03-31 04:57 | XMS_ITS | Encounter Summary ---
Author Organization [facility] Address [address] [facility] [address] [place] [address] Care Team Providers Care Youth Accommodation Support Worker Name Role Phone Kraig Ching MD Primary Care Provider [phone] Gautam Cope MD Unavailable Tramaine Roe MD Unavailable [phone] Sukhwinder Uribe MD Unavailable [phone] Shay Guillermo MD Unavailable [phone] Marsha Landis RN Unavailable Unavailab le Encounter Details Date Type Department Care Team (Late st Contact Info) Description 07/04/2021 Telephone [facility] [address] [facility] [address] [place] [address] Kraig Ching MD [address] [facility] [address] [place], [place] [id number] Social History Tobacco Use Types Packs/Day Years [...] on file 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 Minimize further functional decline 2. Maximize quality of life 3. Control pain Strategies: - Activity/exercise program recommendation - Conservative stepwise pain medicine strategy with multi-disciplinary approach - Recommend healthy lifestyle strategies and compensatory methods as needed documented as of this encounter Visit Diagnoses Not on filedocumented in this encounter Care Teams Youth Accommodation Support Worker Relationship Specialty Start Date End Date Kraig Ching MD [address] [place] [address] PCP - General 07/10/16 Gautam Cope MD [address] [place] [address] Medical Oncologist/Street Commissioner Medical Oncology 08/18/18 Tramaine Roe MD [address] [place] [address] Referring Physician Urology 08/18/18 Sukhwinder Uribe MD [address] [place] [address] Consulting Physician Urology 08/18/18 Shay Guillermo MD [address] [place] [address] Referring Physician Urology 08/18/18 Marsha Landis, RN Registered Nurse 11/17/18 documented as of this encounter
--- OUTSIDE RECORDS SUMMARY | 2024-03-31 04:57 | XMS_ITS | Encounter Summary ---
Author Organization [facility] Address [address] [place] [address] Phone Care Team Providers Care Machine Sander Name Role Phone Kraig Ching MD Primary Care Provider [phone] Gautam Cope MD Unavailable Tramaine Roe MD Unavailable [phone] Sukhwinder Uribe MD Unavailable [phone] Shay Guillermo MD Unavailable [phone] Marsha Landis RN Unavailable Unavailab le Reason for Visit * Episode Based Medications (Routine) - Authorized Specialty Diagnoses / Procedures Referred By Saleem narvaez Referred To Contact Oncology Diagnoses Prostate cancer (HCC) Procedures [place] LEUPROLIDE ACETATE SUSPNSION Leuprolide Every 3 Months - Prostate Gautam Cope MD [address] [facility] [address] [place] [address] Phone: tel: fax: [facility] - Infusion [address] [facility] [address] 5 [place] [address] Referral ID Status Reason Start Date Expiration Date V isits Requested Visits Authorized [id number] Authorized 09/06/2018 07/11/2024 1 50 Encounter Details Date Type Department Care Team (Late st Contact Info) Description 06/24/2021 10:00 AM CDT Office Visit [facility] Oncology [address] [place] [address] 7th [place] [address] [place] [id number] Gautam Cope MD [address] [facility] [address] [place] [address] Prostate cancer (CMS/HCC) (HCC) Social History Tobacco [...] points, staff should administer the PHQ-9) 0 04/08/2021 Hunger Vital Sign Answer Date Recorded Worried [...] file 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 Gender Identity Not on file Sexual Orientation Not on file documented as of this encounter Last Filed Vital Signs Vital Sign Reading Time Taken Comments Blood Pressure 132/61 06/24/2021 10:03 AM CDT Pulse 79 06/24/2021 10:03 AM CDT Temperature 36.2 ??C (97.2 ??F) 06/24/2021 9:59 AM CD T Respiratory Rate 18 06/24/2021 9:59 AM CDT Oxygen Saturation 95% 06/24/2021 10: 03 AM CDT Inhaled Oxygen Concentration - - Weight 100.5 kg (221 lb 9.6 oz) 06/24/2021 9:59 AM CDT Height - - Body Mass Index 31.02 04/08/2021 9:57 AM MARINE ENGINEER CPVEC documented in this encounter Progress Notes * Beatris Herrmann LILIA - 06/24/2021 12:00 AM CDT PATIENT NAME: DAVID DREW : 1940 [place]: 06/24/2021 Mr. Drew is an 80-year-old patient of Dr. Cope with metastatic prostate cancer. The patient was diagnosed with prostate cancer in 1999, when his PSA was 5.5. He underwent a prostate biopsy followed by a radical prostatectomy with Dr. Guillermo in the summer of 1999. His pathology showed Viviana 4 + 3 disease with extracapsular extension and a positive margin, but no lymph node involvement. He received adjuvant radiation therapy, completed in November 1999. Approximately 13 years later, in June 2012, his PSA was rising. By October 2018, it was in the double digits and an MRI scan in August 2018 showed local recurrence. Further workup showed a metastatic deposit at L2. We met the patient at that time and began Lupron therapy, adding abiraterone and prednisone in October 2018. Mr. Drew remains on this regimen and he has had an excellent serologic response to therapy. His vasomotor symptomsare tolerable. He admits to a prickly sensation starting in his legs going up through his body thataccompanies his hot flashes. He has some chronic lower back pain and is no longer receiving steroid injections due to effects on his blood glucose. Otherwise, he denies bone pain or tenderness. The patient denies any difficulty urinating. He gets up 2x/night to void. He continues to have problems with urinary incontinence requiring a pad that he changes a few times throughout the day. Unfortunately, he remains fairly inactive and has gained 11 pounds since his last office visit. His other comorb idities include diabetes, chronic kidney disease, hypertension, paroxysmal atrial fibrillation, andhyperlipidemia. The patient denies any chest pain, but does admit to shortness of breath with activity, likely related to his weight gain and deconditioning. All other systems are negative. PHYSICAL EXAMINATION: Shows a male whose weight is 100.5 kg. Blood pressure is 132/61, with a pulse of 79. He is afebrile. His oxygen saturation is 95% on room air. His performance status is 70%. Nodes: No palpable cervical or supraclavicular adenopathy. Cardiac: S1, S2. No S3 or murmurs. Lungs: Clear to auscultation bilaterally. Abdomen: Soft, nontender, nondistended. No hepatosplenomegaly or palpable masses noted. Bowel sounds are active. Musculoskeletal: WNL. He denies any CVA, spinous, or hip tenderness to percussion. Extremities: Lower extremities show no edema. Neurologic: Nonfocal. LABORATORY DATA: Laboratory data from today shows a hemoglobin of 12.9, and platelet count of 325,000. His liver function is normal, but his creatinine today is elevated to 2.25. His PSA is <0.02. ASSESSMENT AND PLAN: 1. Metastatic prostate cancer, currently on Lupron, abiraterone, and prednisone. The patient was treated with a radical prostatectomy by Dr. Guillermo in 1999. He received adjuvant radiation therapy. Hormonal therapy was started in the summer of 2018 when there was evidence of local recurrence as well as a metastatic involvement at L2. Abiraterone and prednisone were added shortly after. Mr. Drew remains on Lupron, abiraterone, and prednisone with excellent control of his cancer. Restaging scans have shown no evidence of disease progression. He will have a noncontrast CT scan of his chestto evaluate the small, albeit stable, pulmonary nodules that were noted on his previous scan, as well as his emphysema. We will plan for a bone density in approximately 9 months. 2. Weight gain. Once again, we discussed his activity level and encouraged him to increase that which he agrees he needs to and will. 3. Diabetes, followed by his primary care physician. 4. Chronic kidney disease. His creatinine is higher today than at his last several readings. He hasbeen followed by a cook fry, Dr. Guerrero, whom he has not seen since September 2020. We have suggested kianaiscuss this with his primary care physician whom he has an appointment with next month but also reach out to his cook fry to get back in their loop. Mr. Drew continues to do well with respect to his prostate cancer. We will see the patient again 3 months from now for further follow-up. The patient and he is comfortable with this plan and will call with any issues in between visits. ELECTRONICALLY SIGNED - 06/24/2021 11:59 AM BRANDO Chavez Nurse Practitioner In collaboration with Gautam Cope M.D. My signature confirms I have reviewed the note and agree with the assessment and plan of Beatris Herrmann NP-Cielo ELECTRONICALLY SIGNED - 06/24/2021 07:22 PM Gautam Cope M.D. substation operator helper generation ISAK/GLORIA/axel documented in this encounter Plan of Treatment [...] Care Management No change(03/23 1:47 PM MARINE ENGINEER CPVEC) Ingrid Mcdaniels, RN Note: Problem: Chronic Pain [...] neoplasm of prostate documented in this encounter Historical Medications * This list may reflect changes made after this encounter. Medication Sig Dispense Quantity Refills Last Filled Start D ate End Date timolol (TIMOPTIC-XE) 0.5 % ophthalmic gel-forming 06/16/2021 12/08/2022 latanoprost (XALATAN) 0.005 % ophthalmic solution 05/03/2021 11/17/2022 added in this encounter Orders Appointment Requests Count Last Ordered Date Fi rst Ordered Date ONCBCN CLINIC APPOINTMENT REQUEST 1 022 documented in this encounter Care Teams Machine Sander Relationship Specialty Start Date End Date Kraig Ching MD [address] [place] [address] PCP - General 07/10/16 Gautam Cope MD [address] [place] [address] Medical Oncologist/Agricultural Produce Washer Medical Oncology 08/18/18 Tramaine Roe MD [address] [place] [address] Referring Physician Urology 08/18/18 Sukhwinder Uribe MD [address] [place] [address] Consulting Physician Urology 08/18/18 Shay Guillermo MD [address] [place] [address] Referring Physician Urology 08/18/18 Marsha Landis, RN Registered Nurse 11/17/18 documented as of this encounter
--- OUTSIDE RECORDS SUMMARY | 2024-03-31 04:57 | XMS_ITS | Encounter Summary ---
Author Organization [facility] Address [address] [place] [address] Phone Care Team Providers Care Healthcare Corporate Account Director Name Role Phone Kraig Ching MD Primary Care Provider [phone] Gautam Cope MD Unavailable Tramaine Roe MD Unavailable [phone] Sukhwinder Uribe MD Unavailable [phone] Shay Guillermo MD Unavailable [phone] Marsha Landis RN Unavailable Unavailab le Reason for Visit * Episode Based Medications (Routine) - Authorized Specialty Diagnoses / Procedures Referred By Saleem t Referred To Contact Oncology Diagnoses Prostate cancer (HCC) Procedures [place] LEUPROLIDE ACETATE SUSPNSION Leuprolide Every 3 Months - Prostate Gautam Cope MD [address] [facility] [address] [place] [address] Phone: tel: fax: [facility] - Infusion [address] [facility] [address] [place] [address] Referral ID Status Reason Start Date Expiration Date V isits Requested Visits Authorized [id number] Authorized 09/06/2018 07/11/2024 1 50 Encounter Details Date Type Department Care Team (Late st Contact Info) Description 09/16/2021 10:15 AM CDT Lab [facility] Oncology [address] 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 Gender Identity Not on file Sexual [...] Care Management No change(03/23 1:47 PM SENIOR PROCESS ANALYST) No Ingrid Oden, SHEA Note: Problem: [...] rst Ordered Date ONCBCN LAB APPOINTMENT 1 09/16/2021 documented in this encounter Care Teams Healthcare Corporate Account Director Relationship Specialty Start Date End Date Kraig Ching MD [address] [place] [address] PCP - General 07/10/16 Gautam Cope MD [address] [place] [address] Medical Oncologist/Head Inspector Medical Oncology 08/18/18 Tramaine Roe MD [address] [facility] [address] [place] [address] Referring Physician Urology 08/18/18 Sukhwinder Uribe MD [address] [facility] [address] [place] [address] Consulting Physician Urology 08/18/18 Shay Guillermo MD [address] [facility] [address] [place] [address] Referring Physician Urology 08/18/18 Marsha Landis, RN Registered Nurse 11/17/18 documented as of this encounter
--- OUTSIDE RECORDS SUMMARY | 2024-03-31 04:57 | XMS_ITS | Encounter Summary ---
Author Organization [facility] Address [address] [place] [address] Phone Care Team Providers Care Merchandise Execution Leader Name Role Phone Kraig Ching MD Primary Care Provider [phone] Gautam Cope MD Unavailable Tramaine Roe MD Unavailable [phone] Sukhwinder Uribe MD Unavailable Shay Guillermo MD Unavailable [phone] Marsha Landis RN Unavailable Unavailab le Encounter Details Date Type Department Care Team (Late st Contact Info) Description 09/15/2021 Orders Only [facility] Oncology [address] [place] [address] Muna Saleem RN Prostate cancer (CMS/HCC) (HCC) [...] on file 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 Minimize further functional decline 2. Maximize quality of life 3. Control pain Strategies: - Activity/exercise program recommendation - Conservative stepwise pain medicine strategy with multi-disciplinary approach - Recommend healthy lifestyle strategies and compensatory methods as needed documented as of this encounter Results * (ABNORMAL) Hemoglobin A1c (09/16/2021 10:43 AM CDT) Hgb A1C 8.4(H) 4.0 - 5.6 % [facility] Estimated Average Glucose 194 mg/dL [facility] Comment: The ADA recommends reporting an estimated Average Glucose (eAG) with all Hemoglobin A1c results using the equation derived from a study of 507 normal and diabetic adults. ??Minority populations were underrepresented and children were not included. ?? (Diabetes Care 2020; 43(S1): S66-S76). ??The eAG is not equivalent to a fasting glucose. Blood 09/16/2021 10:4 3 AM CDT 09/16/2021 10:55 AM CDT us Gautam Cope MD LAB BLOOD ORDERABLES Final Resul t [facility] Department of Laboratories [place], [place] [id number] documented in this encounter Visit Diagnoses Diagnosis Prostate cancer (HCC)- Primary Malignant neoplasm of prostate documented in this encounter Care Teams Merchandise Execution Leader Relationship Specialty Start Date End Date Kraig Ching MD [address] [facility] [address] [place], [place] [id number] PCP - General 07/10/16 Gautam Cope MD [address] [facility] [address] [place], [place] [id number] Medical Oncologist/Curtain Cutter Hand Medical Oncology 08/18/18 Tramaine Roe MD [address] [facility] [address] [place] [address] Referring Physician Urology 08/18/18 Sukhwinder Uribe MD [address] [facility] [address] [place] [address] Consulting Physician Urology 08/18/18 Shay Guillermo MD [address] [facility] [address] [place] [address] Referring Physician Urology 08/18/18 Marsha Landis, RN Registered Nurse 11/17/18 documented as of this encounter
--- OUTSIDE RECORDS SUMMARY | 2024-03-31 04:57 | XMS_ITS | Encounter Summary ---
Author Organization [facility] Healthcare Address [address] [place] [address] Care Team Providers Care Sounding Device Operator Name Role Phone Kraig Ching MD Primary Care Provider [phone] Gautam Cope MD Unavailable Tramaine Roe MD Unavailable [phone] Sukhwinder Uribe MD Unavailable [phone] Shay Guillermo MD Unavailable [phone] Marsha Landis RN Unavailable Unavailab le Encounter Details Date Type Department Care Team (Latest Contact Info) Description 09/16/2021 8:35 AM CDT - 09/16/2021 11:59 PM CDT Hospital Encounter [facility] [address] [place] [address] Prostate cancer (CMS/HCC) (HCC) Discharge Disposition: Discharge [...] on file 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 Do not eat anything for at least 2 hours before and for at least 1 hour after 120 tablet 11 04/22/2021 3 Accu-Chek Fastclix Lancet Drum misc TEST BLOOD SUGAR TWICE DAILY 204 each 1 12/17/2019 2 Accu-Chek Guide test strips strip USE TO TEST BLOOD SUGAR TWICE DAILY DIRECTED 200 strip 2 04/22/2021 2 aspirin 81 mg tablet Take 1 [...] 2 (two) times a day with meals 120 tablet 07/30/2021 2 chlorthalidone 25 mg tablet TAKE 1 TABLET(25 MG) BY MOUTH DAILY 90 tablet 07/28/2021 2 gabapentin (NEURONTIN) 100 mg capsule TAKE 2 [...] MOUTH DAILY 30 tablet 11 02/17/2021 2 latanoprost (XALATAN) 0.005 % ophthalmic solution 05/03/2021 3 lisinopriL (PRINIVIL,ZESTRI L) 10 mg tablet Take 1 tablet (10 mg total) by mouth daily 30 tablet 5 08/08/2021 2 ONETOUCH ULTRA BLUE TEST STRIP strip TEST SUGAR TWICE DAILY 100 each 3 09/20/2017 3 oxyCODONE (ROXICODONE) 5 mg immediate release tabletIndication s:Pain Take 1 tablet (5 mg total) by mouth every 6 (six) hours as needed for pain 60 tablet 08/04/[address] (PROTONIX) 40 mg EC tablet TAKE 1 TABLET(40 MG) BY MOUTH DAILY 90 tablet 1 05/29/2021 2 pen needle, diabetic (BD Ultra-Fine Short [...] two times a day 60 tablet 11 11/21/2020 2 timolol (TIMOPTIC-XE) 0.5 % ophthalmic gel-forming 06/16/2021 [...] Chronic Care Management No change(03/23 1:47 PM BARREL COATER) Ingrid Mcdaniels, RN Note: Problem: Chronic Pain Goals: 1. Minimize further functional decline 2. Maximize quality of life 3. Control pain Strategies: - Activity/exercise program recommendation - Conservative stepwise pain medicine strategy with multi-disciplinary approach - Recommend healthy lifestyle strategies and compensatory methods as needed documented as of this encounter Procedures Procedure Name Priority Date/Time Associated Diagnosis Comments HEMOGLOBIN A1C Routine 09/16/2021 10:43 AM CDT Prostate cancer (CMS/HCC) (HCC) EGFR STAT 09/16/2021 10:29 AM CDT Prostate cancer (CMS/HCC) (HCC) DIFFERENTIAL AUTO Routine 09/16/2021 10: 29 AM CDT Prostate cancer (CMS/HCC) (HCC) CBC WITH AUTO DIFFERENTIAL Routine 09/16/2021 10:29 AM CDT Prostate cancer (CMS/HCC) (HCC) PSA DIAGNOSTIC Routine 09/16/2021 10:29 AM CDT Prostate cancer (CMS/HCC) (HCC) LACTATE DEHYDROGENASE Routine 09/16/2021 10:29 AM CDT Prostate cancer (CMS/HCC) (HCC) COMPREHENSIVE METABOLIC PANEL STAT 09/16/2021 10:29 AM CDT Prostate cancer (CMS/HCC) (HCC) documented in this encounter Results * (ABNORMAL) Hemoglobin A1c (09/16/2021 10:43 AM CDT) Hgb A1C 8.4(H) 4.0 - 5.6 % [facility] Estimated Average Glucose 194 mg/dL [facility] Comment: The ADA recommends reporting an estimated [...] Final Resul t [facility]LINE [facility] Department [place] [address] * (ABNORMAL) eGFR (09/16/2021 10:29 AM CDT) eGFR 43(L) 90 - 130 mL/min/1. 73 m2 MERLINE [...] was last reviewed 2021. Testing performed by: [facility], [address] [facility] [phone] Blood 09/16/2021 10:2 9 AM CDT 09/16/2021 10:33 AM CDT us Gautam Cope MD LAB BLOOD ORDERABLES Final Resul t Performing Organization Address [facility] Co de Phone Number MERLINE PERDOMO [facility] Department [place] [address] * (ABNORMAL) Differential, auto (09/16/2021 10:29 AM CDT) Neutrophil abs 7.5(H) 1.8 - 6.6 K/cumm [facility] Comment:Testing performed by : [facility], [address] [place] [phone] Lymphocyte abs 1.8 1.2 - 3.3 K/cumm [facility] Comment:Testing performed by : [facility], [address] [place] [phone] Monocyte abs 0.8 0.2 - 1.2 K/cumm [facility] Comment:Testing performed by : [facility], [address] [place] [phone] Eosinophil abs 0.2 0.0 - 0.5 K/cumm [facility] Comment:Testing performed by : [facility], [address] [place] [phone] Basophil abs 0.1 0.0 - 0.2 K/cumm [facility] Comment:Testing performed by : [facility], [address] [place] [phone] Neutrophil pct 72.3 % [facility] Comment: Interpretive Data Percent cell count reference ranges are not reported, since discordance with absolute values may lead to misinterpretation of CBC data. Current Interpretive Data was last revised on 2017. Testing performed by: [facility], [address] [place] [phone] Lymphocyte pct 17.4 % [facility] Comment: Interpretive Data Percent cell count reference ranges are not reported, since discordance with absolute values may lead to misinterpretation of CBC data. Current Interpretive Data was last revised on 2017. Testing performed by: [facility], [address] [place] [phone] Monocyte pct 7.7 % [facility] Comment:Testing performed by : [facility], [address] [place] [phone] Eosinophil pct 1.7 % [facility] Comment:Testing performed by : [facility], [address] [place] [phone] Basophil pct 0.9 % [facility] Comment:Testing performed by : [facility], [address] [place] [phone] Blood 09/16/2021 10:2 9 AM CDT 09/16/2021 10:33 AM CDT us Gautam Cope MD LAB BLOOD ORDERABLES Final Resul t Performing Organization Address [facility] de Phone Number [facility] [place] [address] * Lactate dehydrogenase (LD) (09/16/2021 10:29 AM CDT) Pathologist [facility] Lactate dehydrogenase (LDH) 179 100 - 250 Units/L [facility] Comment:Testing performed by : [facility], [address] [place] [phone] Blood 09/16/2021 10:2 9 AM CDT 09/16/2021 10:33 AM CDT us Gautam Cope MD LAB BLOOD ORDERABLES Final Resul t Performing Organization Address [facility] de Phone Number [facility] [place] [address] * (ABNORMAL) CBC with auto differential (09/16/2021 10:29 AM CDT) Pathologist [facility] WBC 10.4(H) 3.8 - 9.8 K/cumm [facility] Comment:Testing performed by : [facility], [address] [place] [phone] Hgb 12.5(L) 13.8 - 17.2 g/dL [facility] Comment:Testing performed by : [facility], [address] [place] [phone] Hct 37.6(L) 40.7 - 50.3 % [facility] PER[facility]O Comment:Testing performed by : [facility], [address] [place] [phone] Plt 354 140 - 440 K/cumm [facility] Comment:Testing performed by : [facility], [address] [place] [phone] MPV 7.9 6.8 - 10.4 fL [facility] Comment:Testing performed by : [place] [phone] RBC 4.27(L) 4.50 - 5.70 M/cumm [facility] Comment:Testing performed by : [facility], [address] [place], [place] [phone] MCV 88.0 80.0 - 97.6 fL [facility] Comment:Testing performed by : [facility], [address] [place] [phone] MCH 29.3 26.7 - 33.7 pg [facility] Comment:Testing performed by : [facility], [address] [place], [place] [phone] MCHC 33.3 32.7 - 35.5 g/dL [facility] Comment:Testing performed by : [facility], [address] [place] [phone] RDW CV 14.6 11.8 - 14.6 % [facility] Comment:Testing performed by : [facility], [address] [place] [phone] NRBC abs 0.00 0.00 - 0.01 K/cumm [facility] PER[facility]O Comment:Testing performed by : [facility], [address] [place] [phone] Blood 09/16/2021 10:2 9 AM CDT 09/16/2021 10:33 AM CDT us Gautam Cope MD LAB BLOOD ORDERABLES Final Resul t [facility] PERDOMO [facility] Department [place] [address] * (ABNORMAL) Comprehensive metabolic panel (09/16/2021 10:29 AM CDT) Sodium 143 135 - 145 mmol/L [facility]LINE PERDOMO Comment:Testing performed by : [facility], [address] [place] [phone] Potassium, pl 4.7 3.3 - 4.9 mmol/L [facility] Comment:Testing performed by : [facility], [address] [place] [phone] Chloride 105 97 - 110 mmol/L [facility] Comment:Testing performed by : [facility], [address] [place] [phone] CO2 30 22 - 32 mmol/L [facility] Comment:Testing performed by : [facility], [address] [place] [phone] Anion gap 8 2 - 15 mmol/L [facility] Comment:Testing performed by : [facility], [address] [place] [phone] BUN 35(H) 8 - 25 mg/dL [facility] Comment:Testing performed by : [facility], [address] [place] [phone] Creatinine 1.60(H) 0.80 - 1.30 mg/dL [facility] Comment:Testing performed by : [facility], [address] [place] [phone] Glucose 113 70 - 199 mg/dL [facility] Comment: [...] was last revised 2017. Testing performed by: [facility], [address] [place] [phone] Calcium 9.4 8.5 - 10.3 mg/dL [facility] Comment:Testing performed by : [facility], [address] [place] [phone] Bilirubin, total 0.3 0.1 - 1.2 mg/dL [facility] Comment:Testing performed by : [facility], [address] [place] [phone] Protein, pl 6.7 6.5 - 8.5 g/dL [facility] PER[facility]O Comment:Testing performed by : [facility], [address] [place] [phone] Albumin 4.2 3.5 - 5.0 g/dL [facility] PER[facility]O Comment:Testing performed by : [facility], [address] [place] [phone] Alk phos 123 40 - 130 Units/L [facility] PER[facility]O Comment:Testing performed by : [facility], [address] [place] [phone] ALT 11 7 - 55 Units/L [facility] PER[facility]O Comment:Testing performed by : [facility], [address] [place] [phone] AST 13 10 - 50 Units/L [facility]LINE PERDOMO Comment:Testing performed by : [facility], [address] [place] [phone] Blood 09/16/2021 10:2 9 AM CDT 09/16/2021 10:33 AM CDT us Gautam Cope MD LAB BLOOD ORDERABLES Final Resul t [facility] PERDOMO [facility] Department of Laboratories [place], [place] [id number] * PSA diagnostic (09/16/2021 10:29 AM CDT) PSA-Total <0.02 <=6.20 ng/mL [...] Current interpretive data last revised 21. Blood 09/16/2021 10:2 9 AM CDT 09/16/2021 11:00 AM CDT us Gautam Cope MD LAB BLOOD ORDERABLES Final Resul t [facility] [place] [address] documented in this encounter Visit Diagnoses Diagnosis Prostate cancer (HCC) Malignant neoplasm of prostate documented in this encounter Care Teams Sounding Device Operator Relationship Specialty Start Date End Date Kraig Ching MD [address] [place] [address] PCP - General 07/10/16 Gautam Cope MD [address] [place] [address] Medical Oncologist/Dog Handler Or Trainer Medical Oncology 08/18/18 Tramaine Roe MD [address] [place] [address] Referring Physician Urology 08/18/18 Sukhwinder Uribe MD [address] [place] [address] Consulting Physician Urology 08/18/18 Shay Guillermo MD [address] [place] [address] Referring Physician Urology 08/18/18 Marsha Landis, RN Registered Nurse 11/17/18 documented as of this encounter
--- OUTSIDE RECORDS SUMMARY | 2024-03-31 04:57 | XMS_ITS | Encounter Summary ---
Author Organization [facility] Medical Group Address [address] [place] [address] Care Team Providers Care Agility Instructor Name Role Phone Kraig Ching MD Primary Care Provider [phone] Gautam Cope MD Unavailable Tramaine Roe MD Unavailable [phone] Sukhwinder Uribe MD Unavailable [phone] Shay Guillermo MD Unavailable [phone] Marsha Landis RN Unavailable Unavailab le Reason for Visit * Reason Comments Follow-up Encounter Details Date Type Department Care Team (Late st Contact Info) Description 08/08/2021 12:45 PM CDT Office Visit [facility] [address] [facility] [address] [place] [phone] Katherine Del Rio PA [address] 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 Gender Identity Not on file Sexual Orientation Not on file documented as of this encounter Last Filed Vital Signs Vital Sign Reading Time Taken Comments Blood Pressure 184/82 08/08/2021 1:25 PM CDT Pulse 63 08/08/2021 12:47 PM CDT Temperature - - Respiratory Rate 18 08/08/2021 12:47 PM CDT Oxygen Saturation 96% 08/08/2021 12:47 PM CDT Inhaled Oxygen Concentration - - Weight 97.5 kg (215 lb) 08/08/2021 12:47 PM CDT Height 177.8 cm (5' 10 ) 08/08/2021 12:47 PM CDT Body Mass Index 30.85 08/08/2021 12:47 PM CDT documented in this encounter Progress Notes * Katherine Del Rio PA - 08/08/2021 12:45 PM CDT Images from the original note were not included. Subjective/Objective Patient ID: David Wei is a 80 y.o. male. Chief Complaint Follow-up He is here today for routine follow-up. He developed pain in his left upper arm last week. He subsequently noticed significant bruising in the area. The bruising has progressed down his left arm and includes his hand. He has some mild residual soreness of his right biceps but no other problems. He denies trauma, injury. Chronic conditions: 1. HTN. Compliant with amlodipine,carvedilol and chlorthalidone. Hypertension is complicated by CKD. His creatinine was 2.25 on 06/24/21. He is followed by Nephrology. 2. T2DM. Compliant with lantus and novolog. He has had 2 episodes of hypoglycemia. He now carries glucose packets for emergencies. Recent A1C 8.3 (06/24/21). Diabetes is complicated by hyperlipidemia.He is prescribed pravastatin. He is intolerant of atorvastatin. He is taking prednisone daily for prostate cancer. He is current with dilated eye exam. 3. Metastatic prostate cancer. He is prescribed lupron, abiraterone, and prednisone. Restaging scans have shown no evidence of disease progression. He is followed by Oncology. 4. GERD. Controlled on pantoprazole. 5. Back Pain. 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 He uses oxycodoneas needed. He endorses occasional constipation. Review of Systems Respiratory: Negative for shortness of breath. Cardiovascular: Negative for chest pain. Gastrointestinal: Positive for constipation. Endocrine: Negative for polydipsia, polyphagia and polyuria. Genitourinary: Negative for frequency and urgency. Musculoskeletal: Positive for arthralgias and back pain. Skin: Positive for color change. Psychiatric/Behavioral: Negative for sleep disturbance. BP (!) 184/82 Pulse 63 Resp 18 Ht 177.8 cm (5' 10 ) Wt 97.5 kg (215 lb) SpO2 96% BMI 30.85 kg/m?? Physical Exam Vitals reviewed. Constitutional: Appearance: He is well-developed. HENT: Head: Normocephalic and atraumatic. Eyes: Pupils: Pupils are equal, round, and reactive to light. Cardiovascular: Rate and Rhythm: Normal rate and regular rhythm. Pulmonary: Effort: Pulmonary effort is normal. Breath sounds: Normal breath sounds. Musculoskeletal: Right forearm: Swelling present. Right hand: Swelling present. Cervical back: Normal range of motion and neck supple. Comments: Unable to palpate distal left biceps tendon. Mild Joseluis deformity of left biceps. Lymphadenopathy: Cervical: No cervical adenopathy. Skin: General: Skin is warm and dry. Findings: Bruising present. No wound. Comments: Ecchymosis noted over left anterior upper arm, forearm and dorsal hand. Neurological: Mental Status: He is alert and oriented to person, place, and time. Cranial Nerves: No cranial nerve deficit. Assessment/Plan Diagnoses and all orders for this visit: Type 2 diabetes mellitus with other specified complication, with long-term current use of insulin ([facility]) (Primary) Comments: Controlled. Continue Lantus and Novolog. Essential hypertension Comments: BP above goal. Patient encouraged to contact nephrology re: recommendations. Hyperlipidemia associated with type 2 diabetes mellitus ([facility]) Comments: Most recent lipid panel reviewed. LDL not calculated due to hypertriglyceridemia. Lab today. Continue rosuvastatin. Orders: - Lipid panel; Future Prostate cancer ([facility]) ([facility]) Comments: Continue to follow with oncology. Stage 3 chronic kidney disease, unspecified whether stage 3a or 3b CKD ([facility]) Comments: Nephrotoxin avoidance encouraged. Continue management per nephrology. Rupture of left distal biceps tendon, initial encounter Comments: Clinical exam consistent with this diagnosis. Likely brought on by chronic steroid use. Monitor. Need for pneumococcal vaccination - Pneumococcal polysaccharide vaccine 23-valent greater than or equal to 2yo subcutaneous/IM (PNEUMOVAX) Obesity (BMI 30-39.9) BMI 30.0-30.9,adult [place] Landry documented in this encounter Plan of Treatment [...] Chronic Care Management No change(03/23 1:47 PM COUNTER STACKER) No Ingrid Oden, SHEA Note: Problem: Chronic Pain Goals: 1. Minimize further functional decline 2. Maximize quality of life 3. Control pain Strategies: - Activity/exercise program recommendation - Conservative stepwise pain medicine strategy with multi-disciplinary approach - Recommend healthy lifestyle strategies and compensatory methods as needed documented as of this encounter Visit Diagnoses Diagnosis Type 2 diabetes mellitus with other specified complication, with long-term current use of insulin (HCC)- Primary Essential hypertension Unspecified essential hypertension Hyperlipidemia associated with type 2 diabetes mellitus (HCC) Prostate cancer (HCC) Malignant neoplasm of prostate Stage 3 chronic kidney disease, unspecified whether stage 3a or 3b CKD (HCC) Rupture of left distal biceps tendon, initial encounter Need for pneumococcal vaccination Need for prophylactic vaccination against streptococcus pneumoniae (pneumococcus) Obesity (BMI 30-39.9) BMI 30.0-30.9,adult documented in this encounter Discontinued Medications Medication Sig Discontinue Reason Start Date End Da te glimepiride (AMARYL) 1 mg tabletIndications:type 2 diabetes mellitus Take 1 tablet (1 mg total) by mouth daily before breakfast Alternate therapy 02/28/2021 08/08/2021 documented as of this encounter Orders Immunization/Injection Count Last Ordered Date First Ordered Date PNEUMOCOCCAL POLYSACCHARIDE VACCINE 23-VALENT =>2YO SQ IM 1 08/08/2021 documented in this encounter Care Teams Agility Instructor Relationship Specialty Start Date End Date Kraig Ching MD [address] [facility] [address] [place] [address] PCP - General 07/10/16 Gautam Cope MD [address] [facility] [address] [place] [address] Medical Oncologist/Apron Operator Medical Oncology 08/18/18 Tramaine Roe MD [address] [facility] [address] [place] [address] Referring Physician Urology 08/18/18 Sukhwinder Uribe MD [address] [facility] [address] [place] [address] Consulting Physician Urology 08/18/18 Shay Guillermo MD [address] [facility] [address] [place] [address] Referring Physician Urology 08/18/18 Marsha Landis, RN Registered Nurse 11/17/18 documented as of this encounter
--- OUTSIDE RECORDS SUMMARY | 2024-03-31 04:57 | XMS_ITS | Encounter Summary ---
Author Organization [facility] Address [address] [place] [address] Care Team Providers Care Brown Sourer Name Role Phone Kraig Ching MD Primary Care Provider [phone] Gautam Cope MD Unavailable Tramaine Roe MD Unavailable [phone] Sukhwinder Uribe MD Unavailable [phone] Shay Guillermo MD Unavailable [phone] Marsha Landis RN Unavailable Unavailab le Reason for Visit * Reason Onset Date Comments Medication Request 07/22/2021 Encounter Details Date Type Department Care Team (Late st Contact Info) Description 07/22/2021 Telephone [facility] [address] [facility] [address] [facility] [place] [address] Kraig Ching MD [address] [facility] [address] [place] [address] Medication Request Social History Tobacco [...] on file 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 Yes-Action [...] to monitor diabetes and kidney status, etc. 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 Minimize further functional decline 2. Maximize quality of life 3. Control pain Strategies: - Activity/exercise program recommendation - Conservative stepwise pain medicine strategy with multi-disciplinary approach - Recommend healthy lifestyle strategies and compensatory methods as needed documented as of this encounter Visit Diagnoses Not on filedocumented in this encounter Care Teams Brown Sourer Relationship Specialty Start Date End Date Kraig Ching MD [address] [facility] [address] [place] [address] PCP - General 07/10/16 Gautam Cope MD [address] [facility] [address] [place] [address] Medical Oncologist/Chlorine Cell Tender Medical Oncology 08/18/18 Tramaine Roe MD [address] [facility] [address] [place] [address] Referring Physician Urology 08/18/18 Sukhwinder Uribe MD [address] [facility] [address] [place] [address] Consulting Physician Urology 08/18/18 Shay Guillermo MD [address] [facility] [address] [place] [address] Referring Physician Urology 08/18/18 Marsha Landis, RN Registered Nurse 11/17/18 documented as of this encounter
--- OUTSIDE RECORDS SUMMARY | 2024-03-31 04:57 | XMS_ITS | Encounter Summary ---
Author Organization [facility] Healthcare Address [address] [place] [address] Care Team Providers Care Cloth Finishing Range Operator Name Role Phone Kraig Ching MD Primary Care Provider [phone] Gautam Cope MD Unavailable Tramaine Roe MD Unavailable [phone] Sukhwinder Uribe MD Unavailable [phone] Shay Guillermo MD Unavailable [phone] Marsha Landis RN Unavailable Unavailab le Reason for Referral * MRI/CAT/PET Scan (Routine) - Closed Specialty Diagnoses / Procedures Referred By Saleem narvaez Referred To Contact Radiology Diagnoses Prostate cancer (HCC) Procedures CT chest without contrast Gautam Cope MD [address] [address] Phone: tel: fax: [address] [address] Referral ID Status Reason Start Date Expiration Date Visits Re quested Visits Authorized [id number] Closed 06/21/2021 07/21/2022 1 1 Reason for Visit * MRI/CAT/PET Scan (Routine) - Closed Specialty Diagnoses / Procedures Referred By Saleem narvaez Referred To Contact Radiology Diagnoses Prostate cancer (HCC) Procedures CT chest without contrast Gautam Cope MD [id number] [place] [address] Phone: tel: fax: [facility] [address] [facility] [place] [address] Referral ID Status Reason Start Date Expiration Date Visits Re quested Visits Authorized [id number] Closed 06/21/2021 07/21/2022 1 1 Encounter Details Date Type Department Care Team (Latest Contact Info) Description 09/10/2021 10:18 AM CDT - 09/10/2021 11:59 PM CDT Hospital Encounter [facility] [address] [place] [address] Gautam Cope MD [address] [facility] [address] [place] [address] Prostate cancer (CMS/HCC) (HCC) Discharge [...] on file 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 [facility] Chronic Pain Care Plan Chronic Care Management No change(03/23 1:47 PM CLIENT 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) No Ingrid Oden, RN Note: Problem: Chronic [...] CONTRAST Schedule Routine, Read Routine (OP Routine) 09/10/2021 10:35 AM CDT Prostate cancer (CMS/HCC) (HCC) documented in this encounter Results * CT chest without contrast (09/10/2021 10:35 AM CDT) Anatomical Region Laterality Modality Body N/A Computed Tomogra phy 09/10/2021 11:2 0 AM CDT Impressions 09/10/2021 11:20 AM CDT 1. ??No evidence of thoracic metastatic disease. 2. ??Stable right lung groundglass foci, which could represent low-grade adenocarcinoma. Continued attention on follow-up. Electronically signed by: Joseph Maldonado MD Narrative 09/10/2021 11:20 AM CDT EXAMINATION: ??Computed tomography of the chest without intravenous contrast HISTORY: Prostate cancer, restaging TECHNIQUE: ??Transaxial computed tomographic images of the chest were obtained without intravenous contrast according to the standard protocol. COMPARISON: 03/25/2021 FINDINGS: ?? Lungs: The trachea is midline and patent. Mild emphysematous changes of the lungs. Stable 11 mm right lower lobe groundglass focus without developing solid component. Subtle right upper lobe groundglass foci are also stable. There is no confluent airspace consolidation or new pulmonary nodule. ??No pleural effusion or pneumothorax is identified. Lymph nodes: There is no evidence of mediastinal or hilar lymphadenopathy. There is no supraclavicular or axillary lymphadenopathy. Heart: The heart is normal in size without pericardial effusion. There are triple vessel coronary artery calcifications and calcifications about the aortic valve. Lipomatous hypertrophy of the interatrial septum. The caliber of the great vessels are normal. Thyroid: Normal. Bones: No aggressive osseous lesion. Stable sclerotic focus in the left humeral head, likely a bone island. The intrathoracic esophagus is nondistended. The hepatic surface is mildly undulating without discrete nodularity. No suspicious hepatic lesions are seen. Sequela of old granulomatous disease. The spleen, adrenal glands, and pancreas are normal. The stomach is nondistended. Stable left simple and indeterminate, likely hemorrhagic/proteinaceous, right renal cysts. No hydronephrosis. Procedure Note Joseph Maldonado MD - 09/10/2021 EXAMINATION: Computed tomography of the chest without intravenous contrast HISTORY: Prostate cancer, restaging TECHNIQUE: Transaxial computed tomographic images of the chest were obtained without intravenous contrast according to the standard protocol. COMPARISON: 03/25/2021 FINDINGS: Lungs: The trachea is midline and patent. Mild emphysematous changes of the lungs. Stable 11 mm right lower lobe groundglass focus without developing solid component. Subtle right upper lobe groundglass foci are also stable. There is no confluent airspace consolidation or new pulmonary nodule. No pleural effusion or pneumothorax is identified. Lymph nodes: There is no evidence of mediastinal or hilar lymphadenopathy. There is no supraclavicular or axillary lymphadenopathy. Heart: The heart is normal in size without pericardial effusion. There are triple vessel coronary artery calcifications and calcifications about the aortic valve. Lipomatous hypertrophy of the interatrial septum. The caliber of the great vessels are normal. Thyroid: Normal. Bones: No aggressive osseous lesion. Stable sclerotic focus in the left humeral head, likely a bone island. The intrathoracic esophagus is nondistended. The hepatic surface is mildly undulating without discrete nodularity. No suspicious hepatic lesions are seen. Sequela of old granulomatous disease. The spleen, adrenal glands, and pancreas are normal. The stomach is nondistended. Stable left simple and indeterminate, likely hemorrhagic/proteinaceous, right renal cysts. No hydronephrosis. IMPRESSION: 1. No evidence of thoracic metastatic disease. 2. Stable right lung groundglass foci, which could represent low-grade adenocarcinoma. Continued attention on follow-up. Electronically signed by: Joseph Maldonado MD Gautam Cope MD IMG CT PROCEDURES Final Result documented in this encounter Visit Diagnoses Diagnosis Prostate cancer (HCC) Malignant neoplasm of prostate documented in this encounter Care Teams Cloth Finishing Range Operator Relationship Specialty Start Date End Date Kraig Ching MD [address] [place] [address] PCP - General 07/10/16 Gautam Cope MD [address] [place] [address] Medical Oncologist/Marine Rigger Medical Oncology 08/18/18 Tramaine Roe MD [address] [facility] [address] [place] [address] Referring Physician Urology 08/18/18 Sukhwinder Uribe MD [address] [facility] [address] [place] [address] Consulting Physician Urology 08/18/18 Shay Guillermo MD [address] [facility] [address] [place] [address] Referring Physician Urology 08/18/18 Marsha Landis, RN Registered Nurse 11/17/18 documented as of this encounter
--- OUTSIDE RECORDS SUMMARY | 2024-03-31 04:57 | XMS_ITS | Encounter Summary ---
Author Organization [facility] Address [address] [place] [address] Phone Care Team Providers Care Android Ios Developer Name Role Phone Kraig Ching MD Primary Care Provider [phone] Gautam Cope MD Unavailable Tramaine Roe MD Unavailable [phone] Sukhwinder Uribe MD Unavailable [phone] Shay Guillermo MD Unavailable [phone] Marsha Landis RN Unavailable Unavailab le Encounter Details Date Type Department Care Team (Late st Contact Info) Description 09/12/2021 Orders Only [facility] Oncology [address] [facility] 7th [place] [address] [place] [address] Muna Saleem RN Prostate cancer [...] on file 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 Minimize further functional decline 2. Maximize quality of life 3. Control pain Strategies: - Activity/exercise program recommendation - Conservative stepwise pain medicine strategy with multi-disciplinary approach - Recommend healthy lifestyle strategies and compensatory methods as needed documented as of this encounter Results * PSA diagnostic (12/16/2021 7:40 AM CDT) PSA-Total <0.02 <=6.20 ng/mL [facility] Comment: Interpretive Data ?AGE ? SEX ?REFERENCE INTERVAL 0 minutes-150 years ?Female ?None 0 minutes-49 years ? Male ?None ? 50-59 years ? Male ?0-3.90 ? 60-69 years ? Male ?0-5.40 ? 70-79 years ? Male ?0-6.20 ? 80-150 years ?Male ?0-6.20 The RxVantage PSA Total assay procedure was used. Results from different manufacturers or methods may not be comparable. Serial testing should be performed using the same method. Current interpretive data last revised 21. Blood 12/16/2021 7:40 AM CDT 12/16/2021 8:07 AM CDT us Gautam Cope MD LAB BLOOD ORDERABLES Final Resul t [facility] Department [place] [address] * (ABNORMAL) Comprehensive metabolic panel (12/16/2021 7:40 AM CDT) Sodium 141 135 - 145 mmol/L [facility] Comment:Testing performed by : [facility], [address] [place] [phone] Potassium, pl 4.5 3.3 - 4.9 mmol/L [facility] Comment:Testing performed by : [facility], [address] [place] [phone] Chloride 104 97 - 110 mmol/L [facility] Comment:Testing performed by : [facility], [address] [place] [phone] CO2 30 22 - 32 mmol/L [facility] Comment:Testing performed by : [facility], [address] [place] [phone] Anion gap 7 2 - 15 mmol/L [facility] Comment:Testing performed by : [facility], [address] [place] [phone] BUN 42(H) 8 - 25 mg/dL [facility] Comment:Testing performed by : [facility], [address] [place] [phone] Creatinine 2.05(H) 0.80 - 1.30 mg/dL [facility] Comment:Testing performed by : [facility], [address] [place] [phone] Glucose 109 70 - 199 mg/dL [facility] Comment: Interpretive Data Fasting glucose >/= 126 [...] was last revised 2017. Testing performed by: [facility], [address] [place] [phone] Calcium 9.3 8.5 - 10.3 mg/dL [facility] Comment:Testing performed by : [facility], [address] [place] [phone] Bilirubin, total 0.3 0.1 - 1.2 mg/dL CEROE[facility] Comment:Testing performed by : [facility], [address] [place] [phone] Protein, pl 6.8 6.5 - 8.5 g/dL [facility] Comment:Testing performed by : [facility], [address] [place] [phone] Albumin 4.3 3.5 - 5.0 g/dL [facility] Comment:Testing performed by : [facility], [address] [place] [phone] Alk phos 114 40 - 130 Units/L [facility] Comment:Testing performed by : [facility], [address] [place] [phone] ALT 9 7 - 55 Units/L [facility] Comment:Testing performed by : [facility], [address] [place] [phone] AST 12 10 - 50 Units/L [facility] Comment:Testing performed by : [facility], [address] [place] [phone] Blood 12/16/2021 7:40 AM CDT 12/16/2021 7:41 AM CDT us Gautam Cope MD LAB BLOOD ORDERABLES Final Resul t [facility] Department [place] [address] * (ABNORMAL) CBC with auto differential (12/16/2021 7:40 AM CDT) WBC 12.1(H) 3.8 - 9.8 K/cumm [facility] Comment:Testing performed by : [facility], [address] [place] [phone] Hgb 12.5(L) 13.8 - 17.2 g/dL [facility] Comment:Testing performed by : [facility], [address] [place], [place] [phone] Hct 37.6(L) 40.7 - 50.3 % [facility] Comment:Testing performed by : [facility], [address] [place], [place] [phone] Plt 332 140 - 440 K/cumm [facility] Comment:Testing performed by : [facility], [address] [place], [place] [phone] MPV 7.6 6.8 - 10.4 fL [facility] Comment:Testing performed by : [place] [address] RBC 4.27(L) 4.50 - 5.70 M/cumm [facility] Comment:Testing performed by : [place] [id number] MCV 88.0 80.0 - 97.6 fL [facility] Comment:Testing performed by : [facility], [address] [place], [place] [phone] MCH 29.3 26.7 - 33.7 pg [facility] Comment:Testing performed by : [place] [id number] MCHC 33.3 32.7 - 35.5 g/dL [facility] Comment:Testing performed by : [place] [id number] RDW CV 14.3 11.8 - 14.6 % [facility] Comment:Testing performed by : [facility], [address] [place], [place] [phone] NRBC abs 0.01 0.00 - 0.01 K/cumm [facility] Comment:Testing performed by : [place] [address] Blood 12/16/2021 7:40 AM CDT 12/16/2021 7:41 AM CDT us Gautam Cope MD LAB BLOOD ORDERABLES Final Resul t [facility] Department [place] [address] * Lactate dehydrogenase (LD) (12/16/2021 7:40 AM CDT) Lactate dehydrogenase (LDH) 168 100 - 250 Units/L [facility] Comment:Testing performed by : [facility], [address] [facility] [phone] Blood 12/16/2021 7:40 AM CDT 12/16/2021 7:41 AM CDT us Gautam Cope MD LAB BLOOD ORDERABLES Final Resul t Performing Organization Address [facility] Co de Phone Number [facility] [place] [address] documented in this encounter Visit Diagnoses Diagnosis Prostate cancer (HCC)- Primary Malignant neoplasm of prostate documented in this encounter Orders Appointment Requests Count Last Ordered Date Fi rst Ordered Date ONCBCN CLINIC APPOINTMENT REQUEST 1 022 ON[facility]N INJECTION APPOINTMENT REQUEST 1 09/2021 ON[facility]N LAB APPOINTMENT 1 12/16/2021 documented in this encounter Care Teams Android Ios Developer Relationship Specialty Start Date End Date Kraig Ching MD [address] [facility] [facility] [address] [place] [address] PCP - General 07/10/16 Gautam Cope MD [address] [facility] [address] [place] [address] Medical Oncologist/Sapphire Stylus Grinder Medical Oncology 08/18/18 Tramaine Roe MD [address] [facility] [address] [place] [address] Referring Physician Urology 08/18/18 Sukhwinder Uribe MD [address] [facility] [address] [place] [address] Consulting Physician Urology 08/18/18 Shay Guillermo MD [address] [facility] [address] [place] [address] Referring Physician Urology 08/18/18 Marsha Landis RN Registered Nurse 11/17/18 documented as of this encounter
--- OUTSIDE RECORDS SUMMARY | 2024-03-31 04:57 | XMS_ITS | Encounter Summary ---
Author Organization [facility] [place] Address [address] [place] [address] Phone Care Team Providers Care Proofer Apprentice Name Role Phone Kraig Ching MD Primary Care Provider [phone] Gautam Cope MD Unavailable Tramaine Roe MD Unavailable [phone] Sukhwinder Uribe MD Unavailable [phone] Shay Guillermo MD Unavailable Marsha Landis RN Unavailable Unavailab le Encounter Details Date Type Department Care Team (Late st Contact Info) Description 08/08/2021 Telephone [facility] Nephrology [address] 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 He will need to monitor BP very closely and send readings to us in the next few days. We might need to add back amlodipine. Thanks. * Addendum Note - Meryl Barrientos RMA - 08/08/2021 3:56 PM CDTAddended by: MERYL BARRIENTOS on: 08/08/2021 03:56 PM Modules accepted: Orders * Telephone Encounter - Meryl Barrientos RMA - 08/08/2021 3:51 PM CDT Talked with pt and he verbalized understanding. He apologized again as he was mistaken on BP meds, he ran out of the Amlodipine 10mg over a month ago and did not call for refills (forgot.) I asked ifBP was better back when he was taking the Amlodipine with other 2 BP meds, he stated No, not really. I sent in the Lisinopril 10mg daily and he said he would like to try this with the Carvedilol and Chlorthalidone prior to adding back Amlodipine in case he can keep off of it. I said I would pass this info along to MD but may contact him again if MD wants him back on it now. He will get BMP at [facility] next Wednesday morning, order placed. He will also watch his salt intake and monitor BP (BID with HR, went over proper BP technique.) I will call him next Wednesday to make sure hewent to [facility] and to get new BP log and updates. He was happy for help. * Telephone Encounter - Lin Guerrero MD - 08/08/2021 3:43 PM CDT His HR was 63 today so we can't increase carvedilol. Let's start him on lisinopril 10 mg daily and check BMP in one week. He was previously on this drug and was stopped due to GABRIELA (I think). He should continue checking BP and restrict dietary salt intake. Please let him know BMP in one week is necessary. Thanks. * Telephone Encounter - Meryl Barrientos RMA - 08/08/2021 3:22 PM CDT Spk to pt and he verified that BP has been running high (180s-190 systolics) for a few months now, higher readings are mostly in mornings and go down a bit in afternoon and evenings.. but not by muchper pt. He apologized for not calling sooner and for not scheduling his f/u appt in a timely manner, was due for appt back in Dec and is now scheduled for September. He denies any sxs and stated he feelswell but knows high BP is not helping his kidneys. Saw PCP today (184/82 HR 63 in office) and he did not make changes, asked pt to contact our office for BP med assistance. He is currently taking Amlodipine 10mg nightly, Carvedilol 12.5mg BID and Chlorthalidone 25mg daily. Please advise when able. From PCP note today: 1. HTN. He is prescribed amlodipine,carvedilol and chlorthalidone. Hypertension is complicated by CKD. His creatinine was 2.25 on 06/24/21. He is followed by Nephrology. * Telephone Encounter - Liliana Chavez - 08/08/2021 3:05 PM CDT Pt called stating his bps have been running high, his most recent is 190/90. He would like to know if he should adjust his medication or not. Please advise and [id number] Elisha Miranda documented in this encounter Plan of Treatment [...] to monitor diabetes and kidney status, etc. [facility] Chronic Pain Care Plan Chronic Care Management No change(03/23 1:47 PM OPEN HEARTH WORKER) No Ingrid Oden, RN Note: Problem: Chronic Pain Goals: 1. Minimize further functional decline 2. Maximize quality of life 3. Control pain Strategies: - Activity/exercise program recommendation - Conservative stepwise pain medicine strategy with multi-disciplinary approach - Recommend healthy lifestyle strategies and compensatory methods as needed documented as of this encounter Visit Diagnoses Diagnosis Stage 3 chronic kidney disease, unspecified whether stage 3a or 3b CKD (HCC)- Primary Essential hypertension Unspecified essential hypertension GABRIELA (acute kidney injury) (HCC) documented in this encounter Discontinued Medications Medication Sig Discontinue Reason Start Date End Da te amLODIPine (NORVASC) 10 mg tabletIndications:Hypert ensive kidney disease with chronic kidney disease stage III (HCC) Take 1 tablet (10 mg total) by mouth nightly Pt needs to call for f/u appt [phone]. Alternate therapy 12/23/2020 08/08/2021 documented as of this encounter Care Teams Proofer Apprentice Relationship Specialty Start Date End Date Kraig Ching MD [address] [place], [place] [id number] PCP - General 07/10/16 Gautam Cope MD [address] [place], [place] [id number] Medical Oncologist/Stitching Machine Setter Medical Oncology 08/18/18 Tramaine Roe MD [address] [facility] [address] [place] [address] Referring Physician Urology 08/18/18 Sukhwinder Uribe MD [address] [facility] [address] [place] [address] Consulting Physician Urology 08/18/18 Shya Guillermo MD [address] [facility] [address] [place] [address] Referring Physician Urology 08/18/18 Marsha Landis, RN Registered Nurse 11/17/18 documented as of this encounter
--- OUTSIDE RECORDS SUMMARY | 2024-03-31 04:57 | XMS_ITS | Encounter Summary ---
Author Organization [facility] [facility] Address [address] [place] [address] Phone Care Team Providers Care Dude Wrangler Name Role Phone Kraig Ching MD Primary Care Provider [phone] Gautam Cope MD Unavailable Tramaine Roe MD Unavailable [phone] Sukhwinder Uribe MD Unavailable [phone] Shay Guillermo MD Unavailable [phone] Marsha Landis RN Unavailable Unavailab le Reason for Visit * Episode Based Medications (Routine) - Authorized Specialty Diagnoses / Procedures Referred By Saleem t Referred To Contact Oncology Diagnoses Prostate cancer (HCC) Procedures SD LEUPROLIDE ACETATE SUSPNSION Leuprolide Every 3 Months - Prostate Gautam Cope MD [address] [facility] [address] [place] [address] Phone: tel: fax: [facility] - [facility]fusion [address] [facility] [place] [address] [place] [address] Referral ID Status Reason Start Date Expiration Date V isits Requested Visits Authorized [id number] Authorized 09/06/2018 07/11/2024 1 50 Encounter Details Date Type Department Care Team (Late st Contact Info) Description 06/24/2021 9:15 AM CDT Lab [facility] Oncology [address] [facility] 7th [place] [address] [place] [id number] Prostate cancer (CMS/HCC) (HCC) Social History Tobacco [...] on file 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 [facility] Chronic Pain Care Plan Chronic Care Management No change(03/23 1:47 PM EXAMINING CHAIR ASSEMBLER) No Ingrid Oden, RN Note: Problem: Chronic Pain Goals: 1. Minimize further functional decline 2. Maximize quality of life 3. Control pain Strategies: - Activity/exercise program recommendation - Conservative stepwise pain medicine strategy with multi-disciplinary approach - Recommend healthy lifestyle strategies and compensatory methods as needed documented as of this encounter Procedures Procedure Name Priority Date/Time Associated Diagnosis Comments EGFR STAT 06/24/2021 9:40 AM CDT Prostate cancer ([facility]) ([facility]) DIFFERENTIAL AUTO Routine 06/24/2021 9:4 0 AM CDT Prostate cancer ([facility]/HCC) ([facility]) CBC WITH AUTO DIFFERENTIAL Routine 06/24/2021 9:40 AM CDT Prostate cancer ([facility]/HCC) ([facility]) PSA DIAGNOSTIC Routine 06/24/2021 9:40 AM CDT Prostate cancer ([facility]) ([facility]) LACTATE DEHYDROGENASE Routine 06/24/2021 9:40 AM CDT Prostate cancer ([facility]) ([facility]) HEMOGLOBIN A1C Routine 06/24/2021 9:40 AM CDT Prostate cancer ([facility]) (HCC) COMPREHENSIVE METABOLIC PANEL STAT 06/24/2021 9:40 AM CDT Prostate cancer (CMS/HCC) (HCC) documented in this encounter Results * (ABNORMAL) eGFR (06/24/2021 9:40 AM CDT) eGFR 29(L) 90 - 130 mL/min/1. 73 m2 [facility] [...] was last reviewed 2021. Testing performed by: [facility], [address] [place] [phone] Blood 06/24/2021 9:40 AM CDT 06/24/2021 9:41 AM CDT us Gautam Cope MD LAB BLOOD ORDERABLES Final Resul t [facility] [place] [address] * (ABNORMAL) Differential, auto (06/24/2021 9:40 AM CDT) Neutrophil abs 7.5(H) 1.8 - 6.6 K/cumm [facility] Comment:Testing performed by : [facility], [address] [place] [phone] Lymphocyte abs 1.3 1.2 - 3.3 K/cumm [facility] Comment:Testing performed by : [facility], [address] [place] [phone] Monocyte abs 0.8 0.2 - 1.2 K/cumm [facility] Comment:Testing performed by : [facility], [address] [place] [phone] Eosinophil abs 0.2 0.0 - 0.5 K/cumm [facility] Comment:Testing performed by : [facility], [address] [place] [address] Basophil abs 0.1 0.0 - 0.2 K/cumm [facility] Comment:Testing performed by : [facility], [address] [place] [phone] Neutrophil pct 76.6 % [facility] Comment: Interpretive Data Percent cell count reference ranges are not reported, since discordance with absolute values may lead to misinterpretation of CBC data. Current Interpretive Data was last revised on 2017. Testing performed by: [facility], [address] [place] [phone] Lymphocyte pct 12.9 % [facility] Comment: Interpretive Data Percent cell count reference ranges are not reported, since discordance with absolute values may lead to misinterpretation of CBC data. Current Interpretive Data was last revised on 2017. Testing performed by: [facility], [address] [place] [phone] Monocyte pct 7.9 % [facility] Comment:Testing performed by : [facility], [address] [place] [phone] Eosinophil pct 1.8 % [facility] Comment:Testing performed by : [facility], [address] [place] [phone] Basophil pct 0.8 % [facility] Comment:Testing performed by : [facility], [address] [facility] [phone] Blood 06/24/2021 9:40 AM CDT 06/24/2021 9:41 AM CDT Gautam Cope MD LAB BLOOD ORDERABLES Final Resul t Performing Organization Address [facility] de Phone Number [facility] Department [place] [address] * (ABNORMAL) Hemoglobin A1c (06/24/2021 9:40 AM CDT) Pathologist [facility] Hgb A1C 8.3(H) 4.0 - 5.6 % [facility] Estimated Average Glucose 192 mg/dL [facility] Comment: The ADA recommends reporting an estimated Average Glucose (eAG) with all Hemoglobin A1c results using the equation derived from a study of 507 normal and diabetic adults. ??Minority populations were underrepresented and children were not included. ?? (Diabetes Care 2020; 43(S1): S66-S76). ??The eAG is not equivalent to a fasting glucose. Blood 06/24/2021 9:40 AM CDT 06/24/2021 9:58 AM CDT us Gautam Cope MD LAB BLOOD ORDERABLES Final Resul t Performing Organization Address [facility] de Phone Number [facility] Department [place] [address] * Lactate dehydrogenase (LD) (06/24/2021 9:40 AM CDT) Pathologist [facility] Lactate dehydrogenase (LDH) 173 100 - 250 Units/L [facility] Comment:Testing performed by : [facility], [address] [facility] [phone] Blood 06/24/2021 9:40 AM CDT 06/24/2021 9:41 AM CDT us Gautam Cope MD LAB BLOOD ORDERABLES Final Resul t [facility] [place] [address] * (ABNORMAL) CBC with auto differential (06/24/2021 9:40 AM CDT) WBC 9.8 3.8 - 9.8 K/cumm [facility] Comment:Testing performed by : [facility], [address] [place] [phone] Hgb 12.9(L) 13.8 - 17.2 g/dL [facility] Comment:Testing performed by : [address] [address] Hct 38.7(L) 40.7 - 50.3 % [facility] Comment:Testing performed by : [address] [address] Plt 325 140 - 440 K/cumm [facility] Comment:Testing performed by : [address] [address] MPV 7.6 6.8 - 10.4 fL [facility] Comment:Testing performed by : [address] [phone] RBC 4.41(L) 4.50 - 5.70 M/cumm [facility] Comment:Testing performed by : [address] [address] MCV 87.7 80.0 - 97.6 fL [facility] Comment:Testing performed by : [address] [address] MCH 29.2 26.7 - 33.7 pg [facility] Comment:Testing performed by : [address] [address] MCHC 33.3 32.7 - 35.5 g/dL [facility] Comment:Testing performed by : [address] [address] RDW CV 14.3 11.8 - 14.6 % [facility] Comment:Testing performed by : [facility], [address] [place] [phone] NRBC abs 0.00 0.00 - 0.01 K/cumm [facility] Comment:Testing performed by : [facility], [address] [place] [phone] Blood 06/24/2021 9:40 AM CDT 06/24/2021 9:41 AM CDT us Gautam Cope MD LAB BLOOD ORDERABLES Final Resul t [facility] Department [place] [address] * (ABNORMAL) Comprehensive metabolic panel (06/24/2021 9:40 AM CDT) Sodium 142 135 - 145 mmol/L [facility] Comment:Testing performed by : [facility], [address] [place] [phone] Potassium, pl 4.9 3.3 - 4.9 mmol/L [facility] Comment:Testing performed by : [facility], [address] [place] [phone] Chloride 102 97 - 110 mmol/L [facility] Comment:Testing performed by : [facility], [address] [place] [phone] CO2 31 22 - 32 mmol/L [facility] Comment:Testing performed by : [facility], [address] [place] [phone] Anion gap 9 2 - 15 mmol/L [facility] Comment:Testing performed by : [facility], [address] [place] [phone] BUN 48(H) 8 - 25 mg/dL [facility] Comment:Testing performed by : [facility], [address] [place] [phone] Creatinine 2.25(H) 0.80 - 1.30 mg/dL [facility] Comment:Testing performed by : [facility] [address] Glucose 176 70 - 199 mg/dL [facility] Comment: [...] was last revised 2017. Testing performed by: [address] [address] Calcium 9.3 8.5 - 10.3 mg/dL [facility] Comment:Testing performed by : [place] [address] Bilirubin, total 0.3 0.1 - 1.2 mg/dL [facility] Comment:Testing performed by : [address] [address] Protein, pl 6.9 6.5 - 8.5 g/dL [facility] Comment:Testing performed by : [address] [address] Albumin 4.2 3.5 - 5.0 g/dL [facility] Comment:Testing performed by : [address] [address] Alk phos 119 40 - 130 Units/L [facility] Comment:Testing performed by : [address] [phone] ALT 13 7 - 55 Units/L [facility] Comment:Testing performed by : [address] [address] AST 13 10 - 50 Units/L [facility] Comment:Testing performed by : [address] [address] Blood 06/24/2021 9:40 AM CDT 06/24/2021 9:41 AM CDT Gautam Cope MD LAB BLOOD ORDERABLES Final Resul t Performing Organization Address [facility] de Phone Number [facility] Department of [employer] [place] [address] * PSA diagnostic (06/24/2021 9:40 AM CDT) PSA-Total <0.02 <=6.20 ng/mL [facility] Comment: Interpretive Data ?AGE ? SEX ?REFERENCE INTERVAL 0 minutes-150 years ?Female ?None 0 minutes-49 years ? Male ?None ? 50-59 years ? Male ?0-3.90 ? 60-69 years ? Male ?0-5.40 ? 70-79 years ? Male ?0-6.20 ? 80-150 years ?Male ?0-6.20 Current interpretive data last revised 2017. Blood 06/24/2021 9:40 AM CDT 06/24/2021 10:11 AM CDT Gautam Cope MD LAB BLOOD ORDERABLES Final Resul t Performing Organization Address [facility] de Phone Number [facility] [place] [address] documented in this encounter Visit Diagnoses Diagnosis Prostate cancer (HCC) Malignant neoplasm of prostate documented in this encounter Orders Appointment Requests Count Last Ordered Date Fi rst Ordered Date ONCBCN LAB APPOINTMENT 1 06/24/2021 documented in this encounter Care Teams Dude Wrangler Relationship Specialty Start Date End Date Kraig Ching MD [address] [facility] [address] [place] [address] PCP - General 07/10/16 Gautam Cope MD [address] [facility] [address] [place] [address] Medical Oncologist/Filament Wound Parts Fabricator Medical Oncology 08/18/18 Tramaine Roe MD [address] [facility] [address] [place] [address] Referring Physician Urology 08/18/18 Sukhwinder Uribe MD [address] [facility] [address] [place] [address] Consulting Physician Urology 08/18/18 Shay Guillermo MD [address] [facility] [address] [place] [address] Referring Physician Urology 08/18/18 Marsha Landis, RN Registered Nurse 11/17/18 documented as of this encounter
--- OUTSIDE RECORDS SUMMARY | 2024-03-31 04:57 | XMS_ITS | Encounter Summary ---
Author Organization [facility] Address [address] [place] [address] Phone Care Team Providers Care Metal Fitter Name Role Phone Kraig Ching MD Primary Care Provider [phone] Gautam Cope MD Unavailable Tramaine Roe MD Unavailable [phone] Sukhwinder Uribe MD Unavailable [phone] Shay Guillermo MD Unavailable [phone] Marsha Landis RN Unavailable Unavailab le Encounter Details Date Type Department Care Team (Latest Contact Info) Description 08/18/2021 Orders Only [facility] Nephrology [address] [facility] [address] 5th [place] [address] [place] [address] Lin Guerrero MD [address] [facility] [address] [place], [place] [id number] Stage 3 chronic kidney disease, unspecified whether stage 3a or 3b CKD (HCC) (Primary Dx); Essential hypertension; Vitamin D deficiency; Secondary hyperparathyroidism of renal origin (CMS/HCC) (HCC) Social History Tobacco Use Types [...] on file 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 [facility] Chronic Pain Care Plan Chronic Care Management No change(03/23 1:47 PM TROUBLE SHOOTER) No Ingrid Oden, SHEA Note: Problem: Chronic Pain Goals: 1. Minimize further functional decline 2. Maximize quality of life 3. Control pain Strategies: - Activity/exercise program recommendation - Conservative stepwise pain medicine strategy with multi-disciplinary approach - Recommend healthy lifestyle strategies and compensatory methods as needed documented as of this encounter Procedures Procedure Name Priority Date/Time Associated Diagnosis Comments COPY RECEIVED FROM Routine 10/02/2021 2: 27 PM CDT COPY(IES) SENT TO: Routine 10/02/2021 2: 27 PM CDT CBC WITH AUTO DIFFERENTIAL Routine 10/02/2021 2:27 PM CDT Stage 3 chronic kidney disease, unspecified whether stage 3a or 3b CKD (HCC) Essential hypertension Vitamin D deficiency Secondary hyperparathyroidism of renal origin (CMS/HCC) (HCC) VITAMIN D 25 HYDROXY Routine 10/02/2021 2:27 PM CDT Stage 3 chronic kidney disease, unspecified whether stage 3a or 3b CKD (HCC) Essential hypertension Vitamin D deficiency Secondary hyperparathyroidism of renal origin (CMS/HCC) (HCC) PTH Routine 10/02/2021 2:27 PM CDT Stage 3 chronic kidney disease, unspecified whether stage 3a or 3b CKD (HCC) Essential hypertension Vitamin D deficiency Secondary hyperparathyroidism of renal origin (CMS/HCC) (HCC) RENAL FUNCTION PANEL Routine 10/02/2021 2:27 PM CDT Stage 3 chronic kidney disease, unspecified whether stage 3a or 3b CKD (HCC) Essential hypertension Vitamin D deficiency Secondary hyperparathyroidism of renal origin (CMS/HCC) (HCC) documented in this encounter Results * Copy received from (10/02/2021 2:27 PM CDT) Copy Rec'd from: [facility] Comment: ?W[facility] U - INTERNAL MED-RENAL ?[address] ?[place] [address] 10/02/2021 2:27 PM CDT 10/02/2021 2:29 PM CDT Narrative [facility] - 10/03/2021 7:39 AM CDT FASTING:NO FASTING: NO us Lin Guerrero MD LAB BLOOD ORDERABLES Final Resul t [facility] * COPY(IES) SENT TO: (10/02/2021 2:27 PM CDT) COPY(IES) SENT TO: [facility] Comment: ?WASH U INTERNAL MED RENAL ?[address] ?[address] ?[place] [address] 10/02/2021 2:27 PM CDT 10/02/2021 2:29 PM CDT Narrative [facility] - 10/03/2021 7:39 AM CDT FASTING:NO FASTING: NO us Lin Guerrero MD LAB BLOOD ORDERABLES Final Resul t Performing Organization Address City/[facility]/ZIP Co de Phone Number [facility] * (ABNORMAL) Renal function panel (10/02/2021 2:27 PM CDT) Glucose 148(H) 65 - 139 mg/dL [facility] Comment: ? Non-fasting reference interval BUN 42(H) 7 - 25 mg/dL [facility] Creatinine 2.02(H) 0.70 - 1.11 mg/dL [facility] Comment: For patients >49 years of age, the reference limit for Creatinine is approximately 13% higher for people identified as -Nepalese. eGFR NON-AFR. [place] CITIZ[place] 30(L) > OR = 60 mL/min/1. 73m2 [facility] EGFR 35(L) > OR = 60 mL/min/1. 73m2 [facility] BUN/creat ratio 21 6 - 22 (calc) [facility] Sodium 142 135 - 146 mmol/L [facility] Potassium, pl 4.5 3.5 - 5.3 mmol/L [facility] Chloride 106 98 - 110 mmol/L [facility] CO2 28 20 - 32 mmol/L [facility] Calcium 9.2 8.6 - 10.3 mg/dL [facility] Phosphorus, sr 3.9 2.1 - 4.3 mg/dL [facility] Albumin 3.9 3.6 - 5.1 g/dL [facility] Blood specimen (specimen) 10/02/2021 2:27 PM CDT 10/02/2021 2:29 PM CDT Narrative [facility] - 10/03/2021 7:39 AM CDT FASTING:NO FASTING: NO Lin Guerrero MD LAB BLOOD ORDERABLES Final Resul t [facility] [address] [address] * (ABNORMAL) CBC with auto differential (10/02/2021 2:27 PM CDT) Pathologist [facility] WBC 10.0 3.8 - 10.8 Thousand/u L [facility] RBC, POC 4.22 4.20 - 5.80 Million/uL [facility] Hgb 11.9(L) 13.2 - 17.1 g/dL [facility] Hct 37.6(L) 38.5 - 50.0 % [facility] MCV 89.1 80.0 - 100.0 fL [facility] MCH 28.2 27.0 - 33.0 pg [facility] MCHC 31.6(L) 32.0 - 36.0 g/dL [facility] Rdw 13.6 11.0 - 15.0 % [facility] Platelets 361 140 - 400 Thousand/u L [facility] MPV 9.6 7.5 - 12.5 fL [facility] Neutrophils, abs 8,330(H) 1,500 - 7,800 cells/uL [facility] Lymphocytes, abs 970 850 - 3,900 cells/uL [facility] Monocyte abs 620 200 - 950 cells/uL [facility] Eosinophils, abs 60 15 - 500 cells/uL [facility] Basophils, abs 20 0 - 200 cells/uL [facility] Neutrophils 83.3 % [facility] Lymphocyte pct 9.7 % [facility] Monocytes 6.2 % [facility] Eosinophils 0.6 % [facility] Basophils 0.2 % [facility] Blood specimen (specimen) 10/02/2021 2:27 PM CDT 10/02/2021 2:29 PM CDT Narrative [facility] - 10/03/2021 7:39 AM CDT FASTING:NO FASTING: NO us Lin Guerrero MD LAB BLOOD ORDERABLES Final Resul t [facility] [address] [address] * (ABNORMAL) Vitamin D 25 hydroxy (10/02/2021 2:27 PM CDT) Pathologist [facility] Vitamin D 25-OH 26(L) 30 - 100 ng/mL [facility] Comment: Vitamin D Status ? 25-OH Vitamin D: Deficiency: ?<20 ng/mL Insufficiency: ? 20 - 29 ng/mL Optimal: ? > or = 30 ng/mL For 25-OH Vitamin D testing on patients on D2-supplementation and patients for whom quantitation of D2 and D3 fractions is required, the [facility]TM) 25-OH VIT D, (D2,D3), LC/MS/MS is recommended: order code 50983 (patients >2yrs). See Note 1 Note 1 For additional information, please refer to http://education.[employer]/faq/XNG485 (This link is being provided for informational/ educational purposes only.) Blood specimen (specimen) 10/02/2021 2:27 PM CDT 10/02/2021 2:29 PM CDT Narrative [facility] - 10/03/2021 7:39 AM CDT FASTING:NO FASTING: NO us Lin Guerrero MD LAB BLOOD ORDERABLES Final Resul t Performing Organization Address City/State/[facility] Co de Phone Number [facility] [address] [facility] [place] [address] * PTH (10/02/2021 2:27 PM CDT) Pathologist [facility] Parathyroid hormone, intact 52 16 - 77 pg/mL [facility] Comment: Interpretive Guide ?Intact PTH ? Calcium ? ------- Normal Parathyroid ?Normal ? Normal Hypoparathyroidism ?Low or Low Normal ?Low Hyperparathyroidism ?? Primary ?Normal or High ? High ?? Secondary ?High ? Normal or Low ?? Tertiary ? High ? High Non-Parathyroid ?? Hypercalcemia ?Low or Low Normal ?High Blood specimen (specimen) 10/02/2021 2:27 PM CDT 10/02/2021 2:29 PM CDT Narrative [facility] - 10/03/2021 7:39 AM CDT FASTING:NO FASTING: NO Lin Guerrero MD LAB BLOOD ORDERABLES Final Resul t [facility] [address] [place] [address] documented in this encounter Visit Diagnoses Diagnosis Stage 3 chronic kidney disease, unspecified whether stage 3a or 3b CKD (HCC)- Primary Essential hypertension Unspecified essential hypertension Vitamin D deficiency Secondary hyperparathyroidism of renal origin (HCC) Secondary hyperparathyroidism (of renal origin) documented in this encounter Care Teams Metal Fitter Relationship Specialty Start Date End Date Kraig Ching MD [address] [facility] [address] [place] [address] PCP - General 07/10/16 Gautam Cope MD [address] [facility] [address] [place] [address] Medical Oncologist/Senior Data Developer Medical Oncology 08/18/18 Tramaine Roe MD [address] [facility] [address] [place] [address] Referring Physician Urology 08/18/18 Sukhwinder Uribe MD [address] [facility] [address] [place] [address] Consulting Physician Urology 08/18/18 Shay Guillermo MD [address] [facility] [address] [place] [address] Referring Physician Urology 08/18/18 Marsha Landis, RN Registered Nurse 11/17/18 documented as of this encounter
--- OUTSIDE RECORDS SUMMARY | 2024-03-31 04:57 | XMS_ITS | Encounter Summary ---
Author Organization [facility] Address [address] [place] [address] Phone Care Team Providers Care Prosthetic Technician Name Role Phone Kraig Ching MD Primary Care Provider [phone] Gautam Cope MD Unavailable Tramaine Roe MD Unavailable [phone] Sukhwinder Uribe MD Unavailable [phone] Shay Guillermo MD Unavailable [phone] Marsha Landis RN Unavailable Unavailab le Encounter Details Date Type Department Care Team (Late st Contact Info) Description 08/12/2021 Telephone [facility] Nephrology [address] 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 Relayed info about lab results. Reminded him of his 10/08 apt and to get labs drawn 1-2 weeks prior, [facility] in [facility]. Ask him to call if any issues with BP come up in the meantime. Thanks-Karli * Telephone Encounter - Lin Guerrero MD - 08/18/2021 9:42 AM CDT Please let pt know urine does not suggest an infection and kidney function is slightly better. Nothing to do from the kidney standpoint at this time. Thanks. * Telephone Encounter - Lin Guerrero MD - 08/12/2021 3:07 PM CDT Ok to add UA to lab test. It's difficult to know the etiology of his back pain without examining him. Please ask pt to contact PCP for evaluation of back pain. * Telephone Encounter - Comfort Barrios RMA - 08/12/2021 2:30 PM CDT See below, talked to pt and we discussed that pain is not normally from kidneys unless an infectionor blockage is present. I asked about any additional urinary issues, he denies pain upon urination,urinary stream issues, increased frequency, odor, urine discoloration, fever, etc. He said he has back pain from a previous herniated disc but this recent R-sided constant ache is new and feels different than what I have felt in past. He said he feels he drinks a lot of fluids and does urinate about 3x nightly but this is not new for him. He would like to add on a urine test to lab tbd for renal this Wednesday just to check. On the plus side, he states BP has improved with addition of Lisinopril 10mg (w/ Chlorthalidone 25mg daily and Coreg 12.5mg BID.) BP has been in lower 130s/ 70s since last week (HR in 70s) and he would like to stay off the Amlodipine if MD agrees BP is stable. He will continue to monitor this closely as directed. Please advise if anything is needed right now or if he should contact PCP for new onset pain issue.Also, ok to add urine test for Wednesday? Thx * Telephone Encounter - Liliana Baird - 08/12/2021 1:40 PM CDT Pt called reporting that he has been have major back pains above hip on right side and I asked pt to take BP 137/72. Pt stated that rx has been working for him and that he feels this pain however is coming from his kidney.Pt would sina to know what he could do for pain. Please advise and call pt when able pt would like to possibly be seen [facility]. Thanks Marisa documented in this encounter Plan of Treatment [...] monitor diabetes and kidney status, etc. [facility] Chronic Pain Care Plan Chronic Care Management No change(03/23 1:47 PM ENTERPRISE SOLUTIONS ARCHITECT) No Ingrid Oden, RN Note: Problem: [...] Associated Diagnosis Comments COPY RECEIVED FROM Routine 08/15/2021 10 :14 AM CDT COPY(IES) SENT TO: Routine 08/15/2021 10 :14 AM CDT URINALYSIS AND REFLEX TO MICROSCOPIC Routine 08/15/2021 10:14 AM CDT Stage 3 chronic kidney disease, unspecified whether stage 3a or 3b CKD (HCC) Essential hypertension Low back pain, unspecified back pain laterality, unspecified chronicity, unspecified whether sciatica present BASIC METABOLIC PANEL Routine 08/15/2021 10:14 AM CDT Stage 3 chronic kidney disease, unspecified whether stage 3a or 3b CKD (HCC) Essential hypertension Low back pain, unspecified back pain laterality, unspecified chronicity, unspecified whether sciatica present documented in this encounter Results * Copy received from (08/15/2021 10:14 AM CDT) Copy Rec'd from: [facility] Comment: ?WASH U - INTERNAL MED-RENAL ?[address] ?[place] [address] 08/15/2021 10:1 4 AM CDT 08/15/2021 10:16 AM CDT Narrative [facility] - 08/16/2021 5:34 AM CDT VARIFIED ALL INFO FASTING:NO FASTING: NO Lin Guerrero MD LAB BLOOD ORDERABLES Final Resul t [facility] * COPY(IES) SENT TO: (08/15/2021 10:14 AM CDT) COPY(IES) SENT TO: [facility] Comment: ?WASH U INTERNAL MED RENAL ?[address] ?[address] ?[place] [address] 08/15/2021 10:1 4 AM CDT 08/15/2021 10:16 AM CDT Narrative [facility] - 08/16/2021 5:34 AM CDT VARIFIED ALL INFO FASTING:NO FASTING: NO us Lin Guerrero MD LAB BLOOD ORDERABLES Final Resul t Performing Organization Address [facility]/ZIP Co de Phone Number [facility] * (ABNORMAL) Urinalysis reflex to microscopic (08/15/2021 10:14 AM CDT) Color, ur YELLOW YELLOW [facility] Appearance, ur CLEAR CLEAR [facility] Specific gravity 1.010 1.001 - 1.035 [facility] pH, ur 7.0 5.0 - 8.0 [facility] Glucose, [...] NONE SEEN /LPF [facility] Urine 08/15/2021 10:1 4 AM CDT 08/15/2021 10:16 AM CDT Narrative [facility] - 08/16/2021 5:34 AM CDT VARIFIED ALL INFO FASTING:NO FASTING: NO Lin Guerrero MD LAB URINE ORDERABLES Final Resul t Performing Organization Address City/[facility]/ZIP Co de Phone Number [facility] [address] [address] * (ABNORMAL) Basic metabolic panel (08/15/2021 10:14 AM CDT) Glucose 62(L) 65 - 139 mg/dL [facility] Comment: ? Non-fasting reference interval BUN 35(H) 7 - 25 mg/dL [facility] Creatinine 1.99(H) 0.70 - 1.11 mg/dL [facility] Comment: For patients >49 years of age, the reference limit for Creatinine is approximately 13% higher for people identified as -Macanese. eGFR NON-AFR. [place] 31(L) > OR = 60 mL/min/1. 73m2 [facility] EGFR 36(L) > OR = 60 mL/min/1. 73m2 [facility] BUN/creat ratio 18 6 - 22 (calc) [facility] Sodium 141 135 - 146 mmol/L [facility] Potassium, pl 4.6 3.5 - 5.3 mmol/L [facility] Chloride 103 98 - 110 mmol/L [facility] CO2 30 20 - 32 mmol/L [facility] Calcium 8.9 8.6 - 10.3 mg/dL [facility] Blood specimen (specimen) 08/15/2021 10:14 AM CDT 08/15/2021 10:16 AM CDT Narrative [facility] - 08/16/2021 5:34 AM CDT VARIFIED ALL INFO FASTING:NO FASTING: NO us Lin Guerrero MD LAB BLOOD ORDERABLES Final Resul t [facility] [address] [place] [address] documented in this encounter Visit Diagnoses Diagnosis Stage 3 chronic kidney disease, unspecified whether stage 3a or 3b CKD (HCC)- Primary Essential hypertension Unspecified essential hypertension Low back pain, unspecified back pain laterality, unspecified chronicity, unspecified whether sciatica present documented in this encounter Care Teams Prosthetic Technician Relationship Specialty Start Date End Date Kraig Ching MD [address] [facility] [address] [place] [address] PCP - General 07/10/16 Gautam Cope MD [address] [facility] [address] [place] [address] Medical Oncologist/Appointment Scheduler Medical Oncology 08/18/18 Tramaine Roe MD [address] [facility] [address] [place] [address] Referring Physician Urology 08/18/18 Sukhwinder Uribe MD [address] [facility] [address] [place] [address] Consulting Physician Urology 08/18/18 Shay Guillermo MD [address] [facility] [address] [place] [address] Referring Physician Urology 08/18/18 Marsha Landis, RN Registered Nurse 11/17/18 documented as of this encounter
--- OUTSIDE RECORDS SUMMARY | 2024-03-31 04:57 | XMS_ITS | Encounter Summary ---
Author Organization [facility] Address [address] [place] [address] Phone Care Team Providers Care Brand Strategist Name Role Phone Kraig Ching MD Primary Care Provider [phone] Gautam Cope MD Unavailable Tramaine Roe MD Unavailable [phone] Sukhwinder Uribe MD Unavailable [phone] Shay Guillermo MD Unavailable [phone] Marsha Landis RN Unavailable Unavailab le Reason for Referral * MRI/CAT/PET Scan (Routine) - Closed Specialty Diagnoses / Procedures Referred By Saleem narvaez Referred To Contact Radiology Diagnoses Prostate cancer (HCC) Procedures CT chest without contrast Gautam Cope MD [address] [facility] [address] [place] [address] Phone: tel: fax: [address] [address] Referral ID Status Reason Start Date Expiration Date Visits Re quested Visits Authorized [id number] Closed 06/21/2021 07/21/2022 1 1 LRY CONSULTANT Encounter Details Date Type Department Care Team (Late st Contact Info) Description 06/21/2021 Orders Only [facility] Oncology [address] [facility] 7th [place] [address] [place] [address] Muna Saleem RN Prostate cancer [...] on file 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 Electronically signed by: MD Rich Tracey 09/10/2021 11:20 AM CDT EXAMINATION: ??Computed tomography [...] prostate documented in this encounter Care Teams Brand Strategist Relationship Specialty Start Date End Date Kraig Ching MD [address] [place] [address] PCP - General 07/10/16 Gautam Cope MD [address] [place] [address] Medical Oncologist/Clicking Machine Operator Medical Oncology 08/18/18 Tramaine Roe MD [address] [place] [address] Referring Physician Urology 08/18/18 Sukhwinder Uribe MD [address] [place] [address] Consulting Physician Urology 08/18/18 Shay Guillermo MD [address] [place] [address] Referring Physician Urology 08/18/18 Marsha Landis, RN Registered Nurse 11/17/18 documented as of this encounter
--- OUTSIDE RECORDS SUMMARY | 2024-03-31 04:57 | XMS_ITS | Encounter Summary ---
Author Organization [facility] Address [address] [place] [address] Phone Care Team Providers Care Structural Steel Erector Name Role Phone Kraig Ching MD Primary Care Provider Gautam Cope MD Unavailable Tramaine Roe MD Unavailable [phone] Sukhwinder Uribe MD Unavailable [phone] Shay Guillermo MD Unavailable [phone] Marsha Landis RN Unavailable Unavailab le Reason for Visit * Reason Comments Injections Eligard * Episode Based Medications (Routine) - Authorized Specialty Diagnoses / Procedures Referred By Contac t Referred To Contact Oncology Diagnoses Prostate cancer (HCC) Procedures [place] LEUPROLIDE ACETATE SUSPNSION Leuprolide Every 3 Months - Prostate Gautam Cope MD [address] [facility] [address] [place] [address] Phone: tel: fax: [facility] - Infusion [address] [facility] [address] 5 [place] [address] Referral ID Status Reason Start Date Expiration Date V isits Requested Visits Authorized [id number] Authorized 09/06/2018 07/11/2024 1 50 Encounter Details Date Type Department Care Team (Late st Contact Info) Description 09/16/2021 11:[address] 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 male who presents for the following injection: Eligard. Nursing Assessment Nursing Assessment Appetite:: Good Diarrhea:: No Constipation:: No Existing Patients: Any falls since your last visit? : No Fatigue:: Constant Mouth Sores:: No Nausea/Vomiting:: No Pain:: Yes (lower back) Peripheral Neuropathy: : No Pt states has potential to be ? : N/A Shortness of Breath?: No Lungs auscultated PRN:: No Pt is on oxygen? : No Respiratory Effort Characteristics: Dyspnea exertion Skin Condition/Temp: Warm, Dry Oral Mucosa Grade: Normal (0) Abdomen: Soft Swelling:: No Additional Notes: Left lower abdomen BP: 137/82 Temp: 36.3 ??C (97.3 ??F) Temp src: Transdermal Pulse: 62 Resp: 18 SpO2: 96 % Weight: 99.2 kg (218 lb 12.8 oz) Patient: met treatment parameters David Wei [...] Care Management No change(03/23 1:47 PM GAS TRUCK DRIVER) No Ingrid Oden, RN Note: Problem: Chronic [...] 22.5 mg 22.5 mg, subcutaneous, Once, On Wed09/16/21 at 1145, For 1 dose, For subcutaneous use only. Allow product to reach room temperature before using.Indications:Prosta te cancer (HCC) Given 09/16/2021 11:27 AM CDT 22.5 mg Left Lower Abdomen documented in this encounter Orders Nursing Count Last Ordered Date First Orde red Date ONCBCN TREATMENT PARAMETERS 2 1 09/16/2021 Appointment Requests Count Last Ordered Date Fi rst Ordered Date ONCBCN INJECTION APPOINTMENT REQUEST 1 10/2021 documented in this encounter Care Teams Structural Steel Erector Relationship Specialty Start Date End Date Kraig Ching MD [address] [facility] [address] [place] [address] PCP - General 07/10/16 Gautam Cope MD [address] [facility] [address] [place] [address] Medical Oncologist/Tube Splicer Medical Oncology 08/18/18 Tramaine Roe MD [address] [facility] [address] [place] [address] Referring Physician Urology 08/18/18 Sukhwinder Uribe MD [address] [facility] [address] [place] [address] Consulting Physician Urology 08/18/18 Shay Guillermo MD [address] [facility] [address] [place] [address] Referring Physician Urology 08/18/18 Masrha Landis, RN Registered Nurse 11/17/18 documented as of this encounter
--- OUTSIDE RECORDS SUMMARY | 2024-03-31 04:57 | XMS_ITS | Encounter Summary ---
Author Organization [facility] Address [address] [facility] [address] [place] [address] Care Team Providers Care Mechanical Tech Name Role Phone Kraig Ching MD Primary Care Provider [phone] Gautam Cope MD Unavailable Tramaine Roe MD Unavailable [phone] Sukhwinder Uribe MD Unavailable [phone] Shay Guillermo MD Unavailable [phone] Marsha Landis RN Unavailable Unavailab le Encounter Details Date Type Department Care Team (Late st Contact Info) Description 07/24/2021 Telephone [facility] [address] [facility] [address] [place] [address] Kraig Ching MD [address] [facility] [address] [place], [place] [id number] Social History Tobacco Use Types Packs/Day Years [...] file 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 Ching to Rajani Del [place]. Patient was fine seeing Rajani. documented in this encounter Plan of Treatment [...] Care Management No change(03/23 1:47 PM MEDICAL PRACTICE ASSISTANT) No Ingrid Oden RN Note: Problem: Chronic Pain Goals: 1. Minimize further functional decline 2. Maximize quality of life 3. Control pain Strategies: - Activity/exercise program recommendation - Conservative stepwise pain medicine strategy with multi-disciplinary approach - Recommend healthy lifestyle strategies and compensatory methods as needed documented as of this encounter Visit Diagnoses Not on filedocumented in this encounter Care Teams Mechanical Tech Relationship Specialty Start Date End Date Kraig Ching MD [address] [facility] [address] [place] [address] PCP - General 07/10/16 Gautam Cope MD [address] [facility] [address] [place] [address] Medical Oncologist/Burnisher And Bumper Medical Oncology 08/18/18 Tramaine Roe MD [address] [facility] [address] [place] [address] Referring Physician Urology 08/18/18 Sukhwinder Uribe MD [address] [facility] [address] [place] [address] Consulting Physician Urology 08/18/18 Shay Guillermo MD [address] [facility] [address] [place] [address] Referring Physician Urology 08/18/18 Marsha Landis, RN Registered Nurse 11/17/18 documented as of this encounter
--- OUTSIDE RECORDS SUMMARY | 2024-03-31 04:57 | XMS_ITS | Encounter Summary ---
Author Organization [facility] Address [address] [place] [address] Phone Care Team Providers Care Ceramic Tile Installation Helper Name Role Phone Kraig Ching MD Primary Care Provider [phone] Gautam Cope MD Unavailable Tramaine Roe MD Unavailable [phone] Sukhwinder Uribe MD Unavailable [phone] Shay Guillermo MD Unavailable [phone] Marsha Landis RN Unavailable Unavailab le Reason for Visit * Episode Based Medications (Routine) - Authorized Specialty Diagnoses / Procedures Referred By Saleem narvaez Referred To Contact Oncology Diagnoses Prostate cancer (HCC) Procedures [place] LEUPROLIDE ACETATE SUSPNSION Leuprolide Every 3 Months - Prostate Gautam Cope MD [address] [facility] [address] [place] [address] Phone: tel: fax: [facility] - Infusion [address] [facility] [address] 5 [place] [address] Referral ID Status Reason Start Date Expiration Date V isits Requested Visits Authorized [id number] Authorized 09/06/2018 07/11/2024 1 50 Encounter Details Date Type Department Care Team (Late st Contact Info) Description 09/16/2021 11:00 AM CDT Office Visit [facility] Oncology [address] [place] [address] 7th [place] [address] [place] [id number] Gautam Cope MD [address] [facility] [address] [place] [address] Prostate cancer (CMS/HCC) (HCC) Social History Tobacco [...] on file 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 Gender Identity Not on file Sexual Orientation Not on file documented as of this encounter Last Filed Vital Signs Vital Sign Reading Time Taken Comments Blood Pressure 176/80 09/16/2021 10:37 AM CDT Pulse 62 09/16/2021 10:37 AM CDT Temperature 36.3 ??C (97.3 ??F) 09/16/2021 1 0:33 AM CDT Respiratory Rate 18 09/16/2021 10:3 3 AM CDT Oxygen Saturation 96% 09/16/2021 10: 37 AM CDT Inhaled Oxygen Concentration - - Weight 99.2 kg (218 lb 12.8 oz) 022 10:33 AM CDT Height - - Body Mass Index 31.39 08/08/2021 12:47 PM CDT documented in this encounter Progress Notes * Picus, Gautam, MD - 09/16/2021 12:00 AM CDT PATIENT NAME: DAVID DREW : 1940 [place]: 09/16/2021 Mr. Drew is an 80-year-old with metastatic prostate cancer. He was noted to have a PSA of 5.5 in which led to a prostate biopsy. This was followed by a radical prostatectomy performed by Dr. Guillermo in the summer 1999 where he was found to have Viviana 4 + 3 disease with extracapsular extension and a positive margin. He did receive adjuvant radiation therapy, completed in November 1999. Thirteen years later, in June 2012, his PSA was noted to be rising by October 2018, and reached in the double digits and a MRI scan in August 2018 showed local recurrence. Further workup also showed a metastatic deposit at L2. We first met the patient after these results have been identified and started him on Lupron, abiraterone, and prednisone by October 2018. He has had an excellent serological response. Hecontinues to have hot flashes. He also has chronic lower back pain and unfortunately is starting tohave more and more problems ambulating. He is still trying to walk for exercise and he is trying todo this more regularly to try and lose weight. He admits to some late night snacking. He currently gets up twice a night. He continues with urinary frequency and incontinence. Comorbidities include diabetes, chronic kidney disease, hypertension, paroxysmal atrial fibrillation, and hyperlipidemia. The patient denies any new areas of bone pain or tenderness. He denies any dramatic change in urination, but admits frequency may have increased. PHYSICAL EXAMINATION: Vital Signs: Exam shows a male whose weight is 99.2, which is down just a little bit from his last time he saw us. His blood pressure is 176/80, pulse 62. He is afebrile. His O2 saturation 96%. Performance Status: His performance status is 70%. Nodes: He has no palpable adenopathy. Lungs: Clear to auscultation and percussion. Cardiac: Shows an S1 and S2, with an early soft diastolic murmur. Abdomen: His abdominal exam shows no hepatosplenomegaly or palpable masses. Extremities: Trace edema. Neurological: Nonfocal although mobility is limited due to his chronic low back pain. He does walk bent over. LABORATORY DATA: Laboratories today include a hemoglobin 12.5, white count 10,400, platelet count 354,000. His creatinine is 1.6, which is actually better than it has been since March. Random nonfasting glucose is113. His estimated GFR is 43. PSA from today remains <0.02. IMAGING STUDIES: He had a noncontrast chest CT done to follow up on some peripheral ground-glass opacity which is basically unchanged. He has some mild emphysematous changes. The radiologist recommended continued attention to the ground-glass opacity and we will consider repeating a scan in a year. ASSESSMENT AND PLAN: 1. Metastatic prostate cancer, currently on Lupron, abiraterone, and prednisone, with good control of disease. He was diagnosed and treated with a radical prostatectomy in 1999 followed by adjuvant radiation therapy. He developed a local recurrence along with metastatic disease at L2 when he started on hormonal therapy in 2019. 2. Diabetes and weight issues. 3. Chronic kidney disease, seemingly improved today, but he is currently being followed by Nephrology. We will see him again 3 months from now for further follow-up. ELECTRONICALLY SIGNED - 09/16/2021 06:17 PM Gautam Cope M.D. rail operator GLORIA/axel documented in this encounter Plan of [...] monitor diabetes and kidney status, etc. [facility] Chronic Pain Care Plan Chronic Care Management No change(03/23 1:47 PM RN CARDIAC CATH) No Ingrid Oden, RN Note: Problem: Chronic [...] may reflect changes made after this encounter. HYDROcodone-aceta minophen (NORCO) 5-325 mg per tablet Take by mouth every 8 (eight) hours as needed 08/02/2021 02/12/2022 added in this encounter Orders Appointment Requests Count Last Ordered Date Fi rst Ordered Date ONCBCN CLINIC APPOINTMENT REQUEST 1 022 documented in this encounter Care Teams Ceramic Tile Installation Helper Relationship Specialty Start Date End Date Kraig Ching MD [address] [facility] [address] [place] [address] PCP - General 07/10/16 Gautam Cope MD [address] [facility] [address] [place] [address] Medical Oncologist/Review Scheduling Coordinator Medical Oncology 08/18/18 Tramaine Roe MD [address] [facility] [address] [place] [address] Referring Physician Urology 08/18/18 Sukhwinder Uribe MD [address] [facility] [address] [place] [address] Consulting Physician Urology 08/18/18 Shay Guillermo MD [address] [facility] [address] [place] [address] Referring Physician Urology 08/18/18 Marsha Landis RN Registered Nurse 11/17/18 documented as of this encounter
--- OUTSIDE RECORDS SUMMARY | 2024-03-31 04:57 | XMS_ITS | Encounter Summary ---
Author Organization [facility] Address [address] [facility] [address] [place] [address] Care Team Providers Care Fuel Operator Name Role Phone Kraig Ching MD Primary Care Provider [phone] Gautam Cope MD Unavailable Tramaine Roe MD Unavailable [phone] Sukhwinder Uribe MD Unavailable [phone] Shay Guillermo MD Unavailable [phone] Marsha Landis RN Unavailable Unavailab le Reason for Visit * Reason Onset Date Comments Medication Request 09/10/2021 Encounter Details Date Type Department Care Team (Late st Contact Info) Description 09/10/2021 Telephone [facility] [address] [facility] [address] [place] [address] Kraig Ching MD [address] [facility] [address] [place] [address] Medication Request Social History Tobacco [...] on file 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 Would like for it be sent today because it can monitor the the pt glucose unlike the previous rose. * Telephone Encounter - Comfort Salas - 09/10/2021 1:54 PM CDT Medical Question/Miscellaneous Caller???s Concern: Patients spouse states that she sent a message on My Chart on 08/17 and she can see that it was read on 08/18 but she has not heard back from anyone. States that patient is needing a new meter and would like to discuss this ravi. Caller???s Call back #: [phone] Unable to see patient message in Encounters. Does message need to be routed?Yes-Action Needed [...] monitor diabetes and kidney status, etc. [facility] Chronic Pain Care Plan Chronic Care Management No change(03/23 1:47 PM CONFERENCE SERVICES MANAGER) No Ingrid Oden, SHEA Note: Problem: Chronic Pain Goals: 1. Minimize further functional decline 2. Maximize quality of life 3. Control pain Strategies: - Activity/exercise program recommendation - Conservative stepwise pain medicine strategy with multi-disciplinary approach - Recommend healthy lifestyle strategies and compensatory methods as needed documented as of this encounter Visit Diagnoses Not on filedocumented in this encounter Care Teams Fuel Operator Relationship Specialty Start Date End Date Kraig Ching MD [address] [place] [address] PCP - General 07/10/16 Gautam Cope MD [address] [place] [address] Medical Oncologist/Manager Ui Medical Oncology 08/18/18 Tramaine Roe MD [address] [place] [address] Referring Physician Urology 08/18/18 Sukhwinder Uribe MD [address] [place] [address] Consulting Physician Urology 08/18/18 Shay Guillermo MD [address] [place] [address] Referring Physician Urology 08/18/18 Marsha Landis, RN Registered Nurse 11/17/18 documented as of this encounter
--- OUTSIDE RECORDS SUMMARY | 2024-03-31 04:57 | XMS_ITS | Encounter Summary ---
Author Organization [facility] Address [address] [place] [address] Phone Care Team Providers Care Cafeteria Team Leader Name Role Phone Kraig Ching MD Primary Care Provider [phone] Gautam Cope MD Unavailable Tramaine Roe MD Unavailable [phone] Sukhwinder Uribe MD Unavailable [phone] Shay Guillermo MD Unavailable [phone] Marsha Landis RN Unavailable Unavailab le Reason for Visit * Reason Comments Injections Leuprolide 22.5mg/ri ght lower abdomen * Episode Based Medications (Routine) - Authorized Specialty Diagnoses / Procedures Referred By Contac t Referred To Contact Oncology Diagnoses Prostate cancer (HCC) Procedures [place] LEUPROLIDE ACETATE SUSPNSION Leuprolide Every 3 Months - Prostate Gautam Cope MD [address] [place] [address] Phone: tel: fax: [facility] - Infusion [address] [facility] [address] [place] [address] Referral ID Status Reason Start Date Expiration Date V isits Requested Visits Authorized [id number] Authorized 09/06/2018 07/11/2024 1 50 Encounter Details Date Type Department Care Team (Late st Contact Info) Description 06/24/2021 11:00 AM CDT Infusion [facility] Oncology [facility] 7th [place] [id number] Prostate cancer (CMS/HCC) (HCC) (Primary Dx) Social [...] on file 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 ONCOLOGY David Eric Wei is a 80 y.o. male who presents for the following injection: Leuprolide 22.5mg/right lower abdomen. Nursing Assessment Nursing Assessment Appetite:: Good Diarrhea:: No Constipation:: No Last BM Date: 06/24/21 Existing Patients: Any falls since your last visit? : No New Patients: Any falls since your last visit? : N/A Fatigue:: Constant Mouth Sores:: No Nausea/Vomiting:: No Pain:: Yes (lower back/herniated disc) Peripheral Neuropathy: : No Pt states has potential to be ? : N/A Shortness of Breath?: Yes Lungs auscultated PRN:: No Pt is on oxygen? : No Respiratory Effort Characteristics: Dyspnea exertion Skin Condition/Temp: Warm, Dry Oral Mucosa Grade: Normal (0) Abdomen: Soft Swelling:: No Additional Notes: BP: 132/61 Temp: 36.2 ??C (97.2 ??F) Temp src: Transdermal Pulse: 79 Resp: 18 SpO2: 95 % Weight: 100.5 kg (221 lb 9.6 oz) Patient: met treatment parameters David Wei [...] to monitor diabetes and kidney status, etc. [facility] Chronic Pain Care Plan Chronic Care Management No change(03/23 1:47 PM PARTS INSPECTOR) No Ingrid Oden, RN Note: Problem: Chronic [...] 22.5 mg 22.5 mg, subcutaneous, Once, On Wed06/24/21 at 1100, For 1 dose, For subcutaneous use only. Allow product to reach room temperature before using.Indications:Prosta te cancer (HCC) Given 06/24/2021 10:36 AM CDT 22.5 mg Right Lower Abdomen documented in this encounter Orders Nursing Count Last Ordered Date First Orde red Date ONCBCN TREATMENT PARAMETERS 2 1 06/24/2021 Appointment Requests Count Last Ordered Date Fi rst Ordered Date ONCBCN INJECTION APPOINTMENT REQUEST 1 06/10 documented in this encounter Care Teams Cafeteria Team Leader Relationship Specialty Start Date End Date Kraig Ching MD [address] [place] [address] PCP - General 07/10/16 Gautam Cope MD [address] [place] [address] Medical Oncologist/Breaker Unit Assembler Medical Oncology 08/18/18 Tramaine Roe MD [address] [facility] [address] [place] [address] Referring Physician Urology 08/18/18 Sukhwinder Uribe MD [address] [place] [address] Consulting Physician Urology 08/18/18 Shay Guillermo MD [address] [place] [address] Referring Physician Urology 08/18/18 Marsha Landis, RN Registered Nurse 11/17/18 documented as of this encounter
--- OUTSIDE RECORDS SUMMARY | 2024-03-31 04:57 | XMS_ITS | Encounter Summary ---
Author Organization [facility] Address [address] [place] [address] Phone Care Team Providers Care Greens Picker Name Role Phone Kraig Ching MD Primary Care Provider [phone] Gautam Cope MD Unavailable Tramaine Roe MD Unavailable [phone] Sukhwinder Uribe MD Unavailable [phone] Shay Guillermo MD Unavailable [phone] Marsha Landis RN Unavailable Unavailab le Encounter Details Date Type Department Care Team (Late st Contact Info) Description 06/23/2021 Orders Only [facility] Oncology [address] [facility] Advanced Medicine 7th [place] [address] [place] [address] Muna Saleem RN Prostate cancer [...] file 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 Minimize further functional decline 2. Maximize quality of life 3. Control pain Strategies: - Activity/exercise program recommendation - Conservative stepwise pain medicine strategy with multi-disciplinary approach - Recommend healthy lifestyle strategies and compensatory methods as needed documented as of this encounter Results * (ABNORMAL) Hemoglobin A1c (06/24/2021 9:40 AM CDT) Hgb A1C 8.3(H) 4.0 - 5.6 % [facility] Estimated Average Glucose 192 mg/dL [facility] Comment: The ADA recommends reporting [...] ORDERABLES Final Resul t Performing Organization Address City/State/[facility] Co de Phone Number [facility] Department [place] [address] documented in this encounter Visit Diagnoses Diagnosis Prostate cancer (HCC)- Primary Malignant neoplasm of prostate documented in this encounter Care Teams Greens Picker Relationship Specialty Start Date End Date Kraig Ching MD [address] [facility] [address] [place] [address] PCP - General 07/10/16 Gautam Cope MD [address] [facility] [address] [place] [address] Medical Oncologist/Sketch Maker Medical Oncology 08/18/18 Tramaine Roe MD [id number] [place] [address] Referring Physician Urology 08/18/18 Sukhwinder Uribe MD [address] [address] Consulting Physician Urology 08/18/18 Shay Guillermo MD [id number] [place] [address] Referring Physician Urology 08/18/18 Marsha Landis, RN Registered Nurse 11/17/18 documented as of this encounter
--- OUTSIDE RECORDS SUMMARY | 2024-03-31 04:58 | XMS_ITS | Encounter Summary ---
Author Organization [facility] Address [address] [place] [address] Phone Care Team Providers Care Ore Puncher Name Role Phone Kraig Ching MD Primary Care Provider Gautam Cope MD Unavailable Tramaine Roe MD Unavailable [phone] Sukhwinder Uribe MD Unavailable [phone] Shay Guillermo MD Unavailable [phone] Marsha Landis RN Unavailable Unavailab le Encounter Details Date Type Department Care Team (Late st Contact Info) Description 09/12/2020 Orders Only [facility] Nephrology [address] [facility] Advanced Medicine 5th [place] [address] [place] [address] [place] Aragon, RN Social History Tobacco Use Types Packs/Day Years Used Date Smoking Tobacco: Former Smokeless Tobacco: Never Comments:Smoking History Pac ks/day: 10 Cigarettes Alcohol Use Standard Drinks/Week Comments Yes 0 (1 standard drink = 0.6 oz pur e alcohol) Occasional glass of wine. 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 Minimize further functional decline 2. Maximize quality of life 3. Control pain Strategies: - Activity/exercise program recommendation - Conservative stepwise pain medicine strategy with multi-disciplinary approach - Recommend healthy lifestyle strategies and compensatory methods as needed documented as of this encounter Visit Diagnoses Not on filedocumented in this encounter Care Teams Ore Puncher Relationship Specialty Start Date End Date Kraig Ching MD [address] [place] [address] PCP - General 07/10/16 Gautam Cope MD [address] [place] [address] Medical Oncologist/Certified First Assistant Medical Oncology 08/18/18 Tramaine Roe MD [address] [place] [address] Referring Physician Urology 08/18/18 Sukhwinder Uribe MD [address] [place] [address] Consulting Physician Urology 08/18/18 Shay Guillermo MD [address] [place] [address] Referring Physician Urology 08/18/18 Marsha Landis, RN Registered Nurse 11/17/18 documented as of this encounter
--- OUTSIDE RECORDS SUMMARY | 2024-03-31 04:58 | XMS_ITS | Encounter Summary ---
Author Organization [facility] Healthcare Address [address] [place] [address] Care Team Providers Care Feltmaker Name Role Phone Kraig Ching MD Primary Care Provider [phone] Gautam Cope MD Unavailable Tramaine Roe MD Unavailable [phone] Sukhwinder Uribe MD Unavailable [phone] Shay Guillermo MD Unavailable [phone] Marsha Landis RN Unavailable Unavailab le Reason for Visit * Reason Comments Pain Procedure Back Pain Encounter Details Date Type Department Care Team (Latest Contact Info) Description 10/10/2020 10:48 AM CDT - 10/10/2020 11:59 PM CDT Hospital Encounter [facility] [address] [facility] [address] [place], [place] [id number] Maru Arreola MD PhD [address] [facility] [id number] [place] [address] Spinal stenosis of lumbar region with neurogenic claudication (Primary Dx); Sciatica, left side Discharge Disposition: Discharge to home or self [...] on file 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 Gender Identity Not on file Sexual Orientation Not on file documented as of this encounter Last Filed Vital Signs Vital Sign Reading Time Taken Comments Blood Pressure 152/65 10/10/2020 12:42 PM CDT Pulse 67 10/10/2020 12:42 PM CDT Temperature 36.2 ??C (97.1 ??F) 10/10/2020 11:13 AM C DT Respiratory Rate 15 10/10/2020 12:42 PM CDT Oxygen Saturation 98% 10/10/2020 12:42 PM CDT Inhaled Oxygen Concentration - - Weight 94.3 kg (208 lb) 10/10/2020 11:13 AM CDT Height 180.3 cm (5' 11 ) 10/10/2020 11:13 AM CDT Body Mass Index 29.01 10/10/2020 11:13 AM CDT documented in this encounter Discharge Instructions * Discharge Instructions* Rossana Santos, SHEA - 10/10/2020 12:31 PM CDT [facility] DISCHARGE INSTRUCTIONS MEDICATIONS: [x] Continue your current home medications Start: [] Notify your pharmacy for refill(s) 7 days before you are out of your medication. [] Opioid (Narcotic) Agreement signed and patient received copy. [] Side Effects of Opioid Medications given to patient Resume blood thinner: On Discontinue: PROCEDURE at today's visit: Lumbar selective nerve root injection [facility] PATIENT EDUCATION POST-PROCEDURE INFORMATION SHEET After this procedure you may have: ??? Dizziness ??? Numbness in extremities ??? Weakness in extremities These symptoms generally wear off in 6-8 hours, but are almost always gone by the next morning. ??? A small amount of bruising, bleeding, swelling at the injection site(s). It is recommended you apply ice packs for 20 minutes every 1-2 hours for the first 24 hours. ??? After 24 hours, if you still have discomfort, you may use a heating pad. Do not sit or lie on top of heating pad. Do not leave ice or heat on for more than 20 minutes at a time. ??? Stand up slowly from a sitting or lying position today to prevent feeling dizzy or lightheaded. ??? Limit activity today, which includes no driving. You may resume your normal activity and driving the next day after your procedure. ??? You may take a shower. No tub bath, swimming pool, hot tub, etc., for 24 hours. ??? You have received two (2) medications in your injection today. The first is a numbing medicine.This medicine may give you quick pain relief that may wear off before tomorrow. The second medicineis a steroid which may take 2-7 days to start working. You may also have some extra soreness at theinjection site. ??? After the numbing medicine wears off, your pain may return until the steroid starts working. If you have any questions or problems, please call the Pain Management Center at . For emergencies after 4:00 p.m., you should call the hospital stringing machine operator at and ask tospeak with the Pain Service doctor director of industrial relations. DIET: [x] Resume normal diet [] See [facility] Post Discharge Procedure Information Sheet ACTIVITY: [] Resume normal activity [x] See [facility] Post Discharge Procedure Information Sheet REFERRALS: Physical Therapy [] [facility] Physical Therapy ([phone]) [] [facility] ([employer]) [] [facility] ([phone]) [] [facility] ([employer]) [] Other: Behavior Medicine [] Pain Psychologist, [facility] Pain Psychology Please call to schedule appointment [phone] or [phone] Diagnostic Test(s): EDUCATION provided on the following: [] Spinal Cord Stimulator Education and DVD. Vendor: FOLLOW UP APPOINTMENTS: [] Return as needed [x] Follow up appointment: 3 months We will contact you the next day to obtain: [] An update on your condition [] Your Pain diary scores [x] Procedure at your next visit : repeat procedure COVID 19 Vaccine Update Steroids given for a procedure may decrease the effectiveness of the COVID 19 vaccine. Therefore, steroid injections will be held for 2(two) weeks before your first vaccine until 2 (two)weeks after your second vaccine. Please schedule your procedure according to the above guidelines. INSTRUCTIONS before your next procedure: [] See [facility] Pre-Procedure Information Sheet [] Do not eat or drink for six (6) hours before the time/date of the procedure. [] Inquire with your prescribing provider if ok to hold blood thinner for ( ) days before procedure. [] Blood work required 2 hours before procedure: [] Senior Attorney needed for next procedure [] Pre Procedure instructions will be sent through [employer] or by phone two working days prior to procedure. *Need help with [employer]? Call [phone]. Patient provided information and repeated back with understanding. If you need to reach us: For any questions about your procedure, please call the Pain Management Center [phone] (M-F) (8am-4pm) If you need urgent attention after 5 pm and weekends: Call the [facility] Outsole Paraffiner at [phone] and ask for the Pain Service doctor director of industrial relations. documented in this encounter Medications at Time of Discharge ergocalciferol (VITAMIN D) 50,000 unit capsule Take 1 capsule (50,000 Units total) by mouth once a week 12 capsule 09/11/2020 12/10/2020 abiraterone (ZYTIGA) 250 mg tabletIndication s:Prostate cancer (HCC) Take 4 tablets (1,000 mg) by mouth daily. Do not eat anything for at least 2 hours before and for at least 1 hour after 120 tablet 11 04/24/2020 04/22/2021 Accu-Chek Fastclix Lancet Drum misc TEST BLOOD SUGAR TWICE DAILY 204 each 1 12/17/2019 12/05/2021 amLODIPine (NORVASC) 10 mg tabletIndication s:Hypertensive kidney disease with chronic kidney disease stage III ([facility]) Take 1 tablet (10 mg total) by mouth nightly 90 tablet 1 03/13/2020 12/23/2020 aspirin 81 mg tablet Take 1 tablet (81 mg total) by mouth daily. 30 tablet 11 03/07/2018 11/17/2022 BASAGLAR 100 unit/mL (3 mL) pen for injection Inject 16 units SC daily 6 mL 3 09/26/2020 12/26/2020 BD Ultra-Fine Short Pen Needle 31 gauge x 5/16 needle USE DIRECTED TO INJECT INSULIN ONCE DAILY 100 each 01/04/2020 05/19/2021 blood glucose diagnostic strip 11/10/19 23 carvediloL (COREG) 12.5 mg tabletIndication s:CKD (chronic kidney disease) stage 3, GFR 30-59 ml/min ([facility]) Take 1 tablet (12.5 mg total) by mouth 2 (two) times a day with meals 120 tablet 2 06/05/2020 12/12/2020 chlorthalidone 25 mg tablet TAKE 1 TABLET(25 MG) BY MOUTH DAILY 30 tablet 11 09/18/2020 07/28/2021 gabapentin (NEURONTIN) 100 mg capsule TAKE 2 CAPSULES(200 MG) BY MOUTH EVERY NIGHT 60 capsule 3 01/22/2020 02/12/2022 Januvia 25 mg tabletIndication s:Type 2 diabetes mellitus with stage 3 chronic kidney disease, without long-term current use of insulin ([facility]) TAKE 1 TABLET BY MOUTH DAILY 30 tablet 11 12/25/2019 02/17/2021 ONETOUCH ULTRA BLUE TEST STRIP strip TEST SUGAR TWICE DAILY 100 each 3 09/20/2017 11/09/2022 oxyCODONE (ROXICODONE) 5 mg immediate release tabletIndication s:Pain Take 1 tablet (5 mg total) by mouth every 6 (six) hours as needed for pain 28 tablet 09/26/2020 02/05/[address] (PROTONIX) 40 mg EC tablet TAKE 1 TABLET(40 MG) BY MOUTH DAILY 90 tablet 1 05/12/2020 11/09/2020 pravastatin (PRAVACHOL) 20 mg tablet TAKE 1 TABLET BY MOUTH EVERY DAY 90 tablet 1 08/14/2020 02/06/2021 predniSONE (DELTASONE) 5 mg tablet 5 mg 2 (two) times a day 01/18/2020 10/25/2020 TRAVATAN Z 0.004 % drops INT 1 DROP INTO OU QHS 5 12/28/2017 11/17/2022 documented as of this encounter Discharge Disposition Disposition Code Departure Means Destination Discharge to home or self care documented in this encounter Progress Notes * Maru Arreola MD PhD - 10/10/2020 11:00 AM CDT Patient Name: David Wei : 1940 Today's Date: 10/10/2020 PCP: Kraig Ching MD Referring: Maru Arreola MD PhD Chief Complaint Patient presents with ??? Pain ??? Procedure ??? Back Pain HPI HISTORICAL INFO: Mr. David Wei is [...] He is most concerned about the weakness. ?? Mr. David Wei is a 77 y.o. [...] have issues with urination since prostate resection. ?? Therapeutic modalities to date none. Previous injections: none The patient has done physical therapy for his knee. The patient does do home exercise programs. ?? The pain is constant and described as aching. He rates his pain at 5/10 on average. The pain increases with walking, lifting, standing, strain and decreases with rest, lying, sitting. His ADLs are difficult, but manageable on his own. The patient has stopped smoking (many years ago). ?? Current and Prior Pain Medications: none Opioid: AEDs: Anti-Depressants: Muscle Relaxants: Anti-Inflammatories: none due to renal insufficiency Topical: Sleep Aids: Other: ?? Imagin08/10/18 Bone scan: Focal increased uptake projecting the right posterior aspect of L2 vertebral body, Given increasing of PSA, this is suspicious for metastatic disease. 08/10/18: L-SPINE MRI: There is grade 1 anterolisthesis of L4 on L5. ??There are hemangiomas involving L3 and L4. There [...] at L5-S1. 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 ??Vertebral bodies demonstrate normal signal intensity on all sequences. There are no compression fractures. The conus medullaris terminates at the level of the T12-L1. The distal spinal cord signal intensity is normal. Disc heights are reduced especially at L5-S1. ??There is diffuse disc bulging from L1-L2 and L4-L5.??There are no annular fissures identified. There is a large left posterior renal cyst. The aorta is normal. L1-L2: There is marked disc bulge. There is moderate bilateral facet arthropathy. There is mild right neuroforaminal stenosis. There is severe spinal canal stenosis. L2-L3: ??Moderate disc bulge. There is severe bilateral facet arthropathy. There is mild bilateral neuroforaminal stenosis. There is severe spinal canal stenosis. ??Ligamentum flavum infolding. Modic3 changes at the level of L2 correspond to the sclerotic metabolically active lesion seen on the bone scan, thus represents a metastatic lesion, and not degenerative changes L3-L4: ??Moderate disc bulge. There is moderate bilateral facet arthropathy. There is moderate bilateral neuroforaminal stenosis. There is severe spinal canal stenosis. ??Ligamentum flavum infolding. L4-L5: ??Marked disc bulge with a superimposed disc protrusion. There is severe bilateral facet arthropathy. There is moderate bilateral neuroforaminal stenosis. There is severe spinal canal stenosis L5-S1: ??Disc osteophyte complex with large anterior osteophytes. There is mild bilateral facet arthropathy. There is moderate neuroforaminal stenosis. There is no spinal canal stenosis ?? Pain Procedures: 09/15/18: LSNR at bilateral L4/5??(good relief) 01/17/19: LSNR bilateral L4/5 - excellent benefit for several months 10/10/20: LSNR bilateral L4/5 INTERVAL HISTORY (10/10/2020): Mr. David Wei returns to care for persistent low back pain. He reports no new, weakness, bowel/bladder incontinence. He denies falls. He does report some numbness which resolves when he sits down. Since the last visit, the pain is unchanged. He is s/p bilateral L4/5 LSNR, which provided some benefit for about 2 months long. He denies any side effects to current pain medications. The pain is constant and described as aching. He rates his pain at 5/10 on average. The pain increases with walking and movement, getting up in the morning, and decreases with leaning forward on a shopping cart. His ADLs are difficult, but manageable on his own. He has done PT but does not believe that it has been helpful for his pain. He has not seen a surgeon. He believes overall the pain is not worse than when it first began. Current Pain meds: Pain Medications gabapentin (NEURONTIN) 100 mg capsule TAKE 2 CAPSULES(200 MG) BY MOUTH EVERY NIGHT oxyCODONE (ROXICODONE) 5 mg immediate release tablet Take 1 tablet (5 mg total) by mouth every 6 (six) hours as needed for pain predniSONE (DELTASONE) 5 mg tablet 5 mg 2 (two) times a day Review of Systems Review of Systems Constitutional: Negative. HENT: Negative. Eyes: Negative. Respiratory: Negative. Cardiovascular: Negative. Gastrointestinal: Negative. Musculoskeletal: Positive for back pain and myalgias. Skin: Negative. Neurological: Positive for tingling. Endo/Heme/Allergies: Negative. Psychiatric/Behavioral: Negative. Intake form reviewed, unremarkable for any new, acute, and significant life- threatening or concerning symptoms. Patient's Medications New Prescriptions No medications on file Previous Medications ABIRATERONE (ZYTIGA) 250 MG TABLET Take 4 tablets (1,000 mg) by mouth daily. Do not eat anything for at least 2 hours before and for at least 1 hour after Authorizing Provider: Gautam Cope MD Notes: -- ACCU-CHEK FASTCLIX LANCET DRUM MISC TEST BLOOD SUGAR TWICE DAILY Authorizing Provider: Kraig Ching MD Notes: -- AMLODIPINE (NORVASC) 10 MG TABLET Take 1 tablet (10 mg total) by mouth nightly Authorizing Provider: Marie Harkins MD Notes: -- ASPIRIN 81 MG TABLET Take 1 tablet (81 mg total) by mouth daily. Authorizing Provider: Kraig Ching MD Notes: -- BASAGLAR 100 UNIT/ML (3 ML) PEN FOR INJECTION Inject 16 units SC daily Authorizing Provider: Kraig Ching MD Notes: New dose BD ULTRA-FINE SHORT PEN NEEDLE 31 GAUGE X 5/16 NEEDLE USE DIRECTED TO INJECT INSULIN ONCE DAILY Authorizing Provider: Kraig Ching MD Notes: -- BLOOD GLUCOSE DIAGNOSTIC STRIP Authorizing Provider: Coleen Salas MD Notes: -- CARVEDILOL (COREG) 12.5 MG TABLET Take 1 tablet (12.5 mg total) by mouth 2 (two) times a day with meals Authorizing Provider: Lin Guerrero MD Notes: Increasing coreg dose to 12.5 mg bid CHLORTHALIDONE 25 MG TABLET TAKE 1 TABLET(25 MG) BY MOUTH DAILY Authorizing Provider: Lin Guerrero MD Notes: -- ERGOCALCIFEROL (VITAMIN D) 50,000 UNIT CAPSULE Take 1 capsule (50,000 Units total) by mouth once a week Authorizing Provider: Nancy Perdue MD Notes: -- GABAPENTIN (NEURONTIN) 100 MG CAPSULE TAKE 2 CAPSULES(200 MG) BY MOUTH EVERY NIGHT Authorizing Provider: Oj Arciniega MD Notes: -- JANUVIA 25 MG TABLET TAKE 1 TABLET BY MOUTH DAILY Authorizing Provider: Kraig Ching MD Notes: -- ONETOUCH ULTRA BLUE TEST STRIP STRIP TEST SUGAR TWICE DAILY Authorizing Provider: Kraig Ching MD Notes: -- OXYCODONE (ROXICODONE) 5 MG [...] Authorizing Provider: Kraig Ching MD Notes: -- PREDNISONE (DELTASONE) 5 MG TABLET 5 mg 2 (two) times a day Authorizing Provider: Coleen Salas MD Notes: -- TRAVATAN Z 0.004 % DROPS INT 1 DROP INTO OU QHS Authorizing Provider: Coleen Salas MD Notes: -- Modified Medications No medications on file Discontinued Medications LISINOPRIL (PRINIVIL,ZESTRIL) 20 MG TABLET TAKE 1 TABLET(20 MG) BY MOUTH DAILY Authorizing Provider: Kraig Ching MD Notes: -- METFORMIN (GLUCOPHAGE) 500 MG TABLET TAKE 1 TABLET(500 MG) BY MOUTH TWICE DAILY WITH MEALS Authorizing Provider: Kraig Ching MD Notes: -- Allergies Allergen Reactions ??? Atorvastatin Muscle pain Lab Results Component Value Date WBC 12.5 (H) 09/04/2020 HGB 12.2 (L) 09/04/2020 HCT 37.4 (L) 09/04/2020 MCV 89.9 09/04/2020 LABPLAT 400 09/04/2020 Physical Exam: Vitals: 10/10/20 1113 10/10/20 1228 10/10/20 1232 10/10/20 1242 BP: 143/71 164/92 169/82 152/65 BP Location: Left arm Patient Position: Sitting Pulse: 67 68 68 67 Resp: 18 18 17 15 Temp: 97.1 ??F (36.2 ??C) TempSrc: Temporal SpO2: 98% 96% 96% 98% Weight: 94.3 kg (208 lb) Height: 180.3 cm (5' 11 ) Body mass index is 29.01 kg/m??. GENERAL: Well-appearing, no apparent distress, appears stated age. NEURO: Alert & oriented x3, no focal motor deficits notable on general observation. Denies numbness in b/l LEs to light touch. MSK: Able to move all extremities, sitting upright comfortably. 5/5 HF on the R, 4+/5 HF on the L, 5/5 with KE, APF, ADF b/l. HEENT: Atraumatic, normocephalic, EOMI, non-icteric sclera, wearing a mask. CARDIOVASCULAR: Well-perfused extremities. RESPIRATORY: Non-labored breathing. ABDOMINAL: No masses. PYSCH: Pleasant, normal affect, euthymic mood. SKIN: Overall warm and dry. Assessment: The above note documents my personal evaluation of this patient. In addition, I have reviewed and confirmed with the patient and nurse the supportive information documented in today's scanned PatientHealth Questionnaire and Office Note. Encounter Diagnoses Name Primary? Spinal stenosis of lumbar region with neurogenic claudication Yes ??? Sciatica, left side Plan: 1. Interventions: Given signs and symptoms of ongoing lumbar radiculopathy, we will proceed with bilateral L4-L5 LSNR at today's visit. The risks and benefits of the procedure were discussed with thepatient including, but not limited to, bleeding, infection, incomplete resolution of symptoms, and worsening of symptoms. Alternative options were also discussed including continued conservative management and watchful waiting. The patient expressed understanding and all questions were answered appropriately. The patient provided us with an informed consent for the above procedure. 2. Medications: ?? Opioids: I have not recommended opioid analgesics Adjuvants: Continue current regimen 3. Imaging: No further imaging needed at this current time. IF no benefit from injections, considerrepeat MRI 4. Referral: No referrals needed at this current time. 5. Follow-up: 2 months for multilevel LSNR - bilateral L3/4 and L4/5 Luis Esquivel D.O. Resident Physician Physical Medicine and Rehabilitation [facility] in [facility] This patient was initially evaluated by the pain pain management nurse/ I reviewed that evaluation with the trainee and also evaluated the patient myself. I agree with the evaluation and recommendationsnoted above including edits which I have made to the note above. Maru Arreola MD PhD [employer] Project Management of Anesthesiology [facility], [facility] Center 10/10/2020 5:34 PM * Vivi Perez RN - 10/10/2020 11:00 AM CDT J&J 3 months ago. documented in this encounter Miscellaneous Notes * Op Note - Maru Arreola MD PhD - 10/10/2020 11:00 AM CDT Procedure Note Attending Surgeon: Maru Arreola MD PhD Surgical Assistants: none Date of Surgery: 10/10/2020 NAME OF PROCEDURE: Lumbar Transforaminal Epidural Steroid Injection (Selective Nerve Root Injection) at bilateral L4/5 PREPROCEDURAL DIAGNOSES: Chronic pain Lumbar spondylosis Lumbar radiculopathy w/o myelopathy POSTPROCEDURAL DIAGNOSES: Chronic pain Lumbar spondylosis Lumbar radiculopathy w/o myelopathy INDICATION FOR PROCEDURE: Low back pain radiating down bilateral leg (L>R) INFORMED CONSENT: After reviewing the procedure with the patient, informed consent to proceed with the injection was obtained. A procedural permit was also signed. DESCRIPTION OF PROCEDURE: The patient was placed in the prone position on the fluoroscopy table. Fluoroscopy was used to identify the left L4/5 level. The lumbar area was prepped with chlorhexidine solution and draped with sterile towels. Sterile technique was used throughout. At the needle entry point for the injection at lumbar level L4/5, the skin and subcutaneous tissues were infiltrated with 1% lidocaine. A 22-gauge B -bevel 3 inch spinal needle was introduced and positioned with fluoroscopic imaging. The needle was advanced to the posterior margin of the neural foramen. Needle positioning was verified with AP and lateral fluoroscopic images. Radiographic contrast (Omnipaque 300) was injected (volume 1 mL) and seen to spread in the anticipated path of the nerve root. Contrast agent was seen to spread into the spinal canal. No vascular uptake was noted under live fluoroscopy. Bupivacaine 2.5 mg with dexamethasone 4 mg (for a total volume of 2 mL) were injected, resulting indispersion of the previously injected contrast. The above was repeated on the contralateral right side. The procedure was well tolerated, and there were no apparent complications. Dr. Arreola was present for, and participated in, the entire procedure. DISPOSITION: Patient discharged home in stable condition. Operative Findings: None Estimated Blood Loss: None Intraoperative Fluids: None Specimens: None Blood/Blood Products Transfused: None Complications: None Maru Arreola MD PhD Date: 10/10/2020 Time: 5:41 PM TEACHING ATTESTATION : I was present and directly participated in the entire procedure (including opening and closing). documented in this encounter Plan of Treatment [...] Chronic Care Management No change(03/23 1:47 PM 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) Ingrid Mcdaniels, SHEA Note: Problem: Chronic Pain Goals: 1. Minimize further functional decline 2. Maximize quality of life 3. Control pain Strategies: - Activity/exercise program recommendation - Conservative stepwise pain medicine strategy with multi-disciplinary approach - Recommend healthy lifestyle strategies and compensatory methods as needed documented as of this encounter Visit Diagnoses Diagnosis Spinal stenosis of lumbar region with neurogenic claudication- Primary Sciatica, left side documented in this encounter Administered Medications Inactive Administered Medications - up to 3 most recent administrations Medication Order MAR Action Action Date Dose Rate Site bupivacaine (MARCAINE) 0.25 % (2.5 mg/mL) preservative free injection As needed, Starting on Marisabel 10/10/20 at 1223, Intra-Op Given 10/10/2020 12:23 PM CDT 4 mL dexAMETHasone (DECADRON) 4 mg/mL injection Administer over 2 Minutes, As needed, Starting on Marisabel 10/10/20 at 1223, Intra-Op Given 10/10/2020 12:23 PM CDT 8 mg iohexoL (OMNIPAQUE) 300 mg iodine/mL injection solution As needed, Starting on Marisabel 10/10/20 at 1231, Intra-Op Given 10/10/2020 12:31 PM CDT 3 mL lidocaine PF (XYLOCAINE) 10 mg/mL (1 %) preservative free injection As needed, Starting on Marisabel 10/10/20 at 1232, Intra-Op Given 10/10/2020 12:32 PM CDT 15 mL documented in this encounter Discontinued Medications Medication Sig Discontinue Reason Start Date End Da te lisinopriL (PRINIVIL,ZESTRIL) 20 mg tabletIndications:[facility]ia l hypertension TAKE 1 TABLET(20 MG) BY MOUTH DAILY 07/23/2020 10/10/2020 metFORMIN (GLUCOPHAGE) 500 mg tablet TAKE 1 TABLET(500 MG) BY MOUTH TWICE DAILY WITH MEALS 02/19/2020 10/10/2020 documented as of this encounter Care Teams Feltmaker Relationship Specialty Start Date End Date Kraig Ching MD [address] [facility] [address] [place] [address] PCP - General 07/10/16 Gautam Cope MD [address] [facility] [address] [place] [address] Medical Oncologist/Tour Consultant Medical Oncology 08/18/18 Tramaine Roe MD [address] [facility] [address] [place] [address] Referring Physician Urology 08/18/18 Sukhwinder Uribe MD [address] [facility] [address] [place] [address] Consulting Physician Urology 08/18/18 Shay Guillermo MD [address] [facility] [address] [place] [address] Referring Physician Urology 08/18/18 Marsha Landis, RN Registered Nurse 11/17/18 documented as of this encounter
--- OUTSIDE RECORDS SUMMARY | 2024-03-31 04:58 | XMS_ITS | Encounter Summary ---
Author Organization [facility] [employer] [facility] Address [address] [place] [address] Phone Care Team Providers Care Director Hr Communications Name Role Phone Kraig Ching MD Primary Care Provider [phone] Gautam Cope MD Unavailable Tramaine Roe MD Unavailable [phone] Sukhwinder Uribe MD Unavailable [phone] Shay Guillermo MD Unavailable [phone] Marsha Landis RN Unavailable Unavailab le Reason for Visit * Consultation (Routine) - Closed Specialty Diagnoses / Procedures Referred By Saleem narvaez Referred To Contact Oncology Diagnoses Prostate cancer (HCC) Procedures ONCBCN ARM DRAW APPT ONC LAB ONLY Gautam Cope MD [address] [address] Phone: tel: fax: Gautam Cope MD [address] [address] Phone: tel: fax: Referral ID Status Reason Start Date Expiration Date V isits Requested Visits Authorized [id number] Closed Specialty Services Required 03/21/2021 04/11/2021 99 99 Encounter Details Date Type Department Care Team (Late st Contact Info) Description 04/01/2021 9:15 AM MEAT PROCESSING CENTER MANAGER Lab [facility] Oncology [address] [place] [address] 7th [place] [address] [place] [address] Prostate cancer ([facility]/HCC) (HCC) Social History Tobacco Use Types Packs/Day [...] on file 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 MEAT PROCESSING CENTER MANAGER Gender Identity Not on file Sexual [...] diabetes and kidney status, etc. [facility] Chronic Pain Care Plan Chronic Care Management No change(03/23 1:47 PM MEAT PROCESSING CENTER MANAGER) No nIgrid Oden, RN Note: Problem: Chronic Pain Goals: 1. Minimize further functional decline 2. Maximize quality of life 3. Control pain Strategies: - Activity/exercise program recommendation - Conservative stepwise pain medicine strategy with multi-disciplinary approach - Recommend healthy lifestyle strategies and compensatory methods as needed documented as of this encounter Procedures Procedure Name Priority Date/Time Associated Diagnosis Comments EGFR STAT 04/01/2021 9:38 AM MEAT PROCESSING CENTER MANAGER Prostate cancer (CMS/HCC) (HCC) DIFFERENTIAL AUTO Routine 04/01/2021 9:3 8 AM MEAT PROCESSING CENTER MANAGER Prostate cancer (CMS/HCC) (HCC) CBC WITH AUTO DIFFERENTIAL Routine 04/01/2021 9:38 AM MEAT PROCESSING CENTER MANAGER Prostate cancer (CMS/HCC) (HCC) PSA DIAGNOSTIC Routine 04/01/2021 9:38 AM MEAT PROCESSING CENTER MANAGER Prostate cancer (CMS/HCC) (HCC) LACTATE DEHYDROGENASE Routine 04/01/2021 9:38 AM MEAT PROCESSING CENTER MANAGER Prostate cancer (CMS/HCC) (HCC) HEMOGLOBIN A1C Routine 04/01/2021 9:38 AM MEAT PROCESSING CENTER MANAGER Prostate cancer (CMS/HCC) (HCC) COMPREHENSIVE METABOLIC PANEL STAT 04/01/2021 9:38 AM MEAT PROCESSING CENTER MANAGER Prostate cancer (CMS/HCC) (HCC) documented in this encounter Results * (ABNORMAL) eGFR (04/01/2021 9:38 AM MEAT PROCESSING CENTER MANAGER) eGFR 46(L) 90 - 130 mL/min/1. 73 m2 [facility] [...] was last reviewed 2021. Testing performed by: [facility], [address] [place] [phone] Blood 04/01/2021 9:38 AM MEAT PROCESSING CENTER MANAGER 04/01/2021 9:39 AM MEAT PROCESSING CENTER MANAGER us Gautam Cope MD LAB BLOOD ORDERABLES Final Resul t [facility] [place] [address] * (ABNORMAL) Differential, auto (04/01/2021 9:38 AM MEAT PROCESSING CENTER MANAGER) Neutrophil abs 7.7(H) 1.8 - 6.6 K/cumm [facility] Comment:Testing performed by : [facility], [address] [place] [phone] Lymphocyte abs 1.4 1.2 - 3.3 K/cumm [facility] Comment:Testing performed by : [facility], [address] [place] [phone] Monocyte abs 0.9 0.2 - 1.2 K/cumm [facility] Comment:Testing performed by : [facility], [address] [place] [phone] Eosinophil abs 0.1 0.0 - 0.5 K/cumm [facility] Comment:Testing performed by : [facility], [address] [place] [phone] Basophil abs 0.1 0.0 - 0.2 K/cumm [facility] Comment:Testing performed by : [facility], [address] [place] [phone] Neutrophil pct 75.9 % [facility] Comment: Interpretive Data Percent cell count reference ranges are not reported, since discordance with absolute values may lead to misinterpretation of CBC data. Current Interpretive Data was last revised on 2017. Testing performed by: [facility], [address] [place] [phone] Lymphocyte pct 13.5 % [facility] Comment: Interpretive Data Percent cell count reference ranges are not reported, since discordance with absolute values may lead to misinterpretation of CBC data. Current Interpretive Data was last revised on 2017. Testing performed by: [facility], [address] [place] [phone] Monocyte pct 8.4 % [facility] Comment:Testing performed by : [facility], [address] [place] [phone] Eosinophil pct 1.2 % [facility] Comment:Testing performed by : [facility], [address] [place] [phone] Basophil pct 1.0 % [facility] Comment:Testing performed by : [facility], [address] [facility] [phone] Blood 04/01/2021 9:38 AM MEAT PROCESSING CENTER MANAGER 04/01/2021 9:39 AM MEAT PROCESSING CENTER MANAGER Gautam Cope MD LAB BLOOD ORDERABLES Final Resul t Performing Organization Address [facility] de Phone Number [facility] [place] [address] * (ABNORMAL) Hemoglobin A1c (04/01/2021 9:38 AM MEAT PROCESSING CENTER MANAGER) Pathologist [facility] Hgb A1C 10.6(H) 4.0 - 5.6 % [facility] Estimated Average Glucose 258 mg/dL [facility] Comment: The ADA recommends reporting an estimated Average Glucose (eAG) with all Hemoglobin A1c results using the equation derived from a study of 507 normal and diabetic adults. ??Minority populations were underrepresented and children were not included. ?? (Diabetes Care 2020; 43(S1): S66-S76). ??The eAG is not equivalent to a fasting glucose. Blood 04/01/2021 9:38 AM MEAT PROCESSING CENTER MANAGER 04/01/2021 9:51 AM MEAT PROCESSING CENTER MANAGER us Gautam Cope MD LAB BLOOD ORDERABLES Final Resul t Performing Organization Address [facility] de Phone Number [facility] [place] [address] * Lactate dehydrogenase (LD) (04/01/2021 9:38 AM MEAT PROCESSING CENTER MANAGER) Pathologist [facility] Lactate dehydrogenase (LDH) 164 100 - 250 Units/L [facility] Comment:Testing performed by : [facility], [facility] [phone] Blood 04/01/2021 9:38 AM MEAT PROCESSING CENTER MANAGER 04/01/2021 9:39 AM MEAT PROCESSING CENTER MANAGER us Gautam Cope MD LAB BLOOD ORDERABLES Final Resul t [facility] [place] [address] * (ABNORMAL) CBC with auto differential (04/01/2021 9:38 AM MEAT PROCESSING CENTER MANAGER) WBC 10.2(H) 3.8 - 9.8 K/cumm [facility] Comment:Testing performed by : [facility], [address] [place] [phone] Hgb 12.6(L) 13.8 - 17.2 g/dL [facility] Comment:Testing performed by : [address] [address] Hct 37.8(L) 40.7 - 50.3 % [facility] Comment:Testing performed by : [facility], [address] [place] [phone] Plt 368 140 - 440 K/cumm [facility] Comment:Testing performed by : [address] [address] MPV 7.4 6.8 - 10.4 fL [facility] Comment:Testing performed by : [address] [address] RBC 4.36(L) 4.50 - 5.70 M/cumm [facility] Comment:Testing performed by : [address] [address] MCV 86.6 80.0 - 97.6 fL [facility] Comment:Testing performed by : [address] [address] MCH 29.0 26.7 - 33.7 pg [facility] Comment:Testing performed by : [address] [address] MCHC 33.5 32.7 - 35.5 g/dL [facility] Comment:Testing performed by : [address] [address] RDW CV 14.3 11.8 - 14.6 % [facility] Comment:Testing performed by : [facility], [address] [place] [address] NRBC abs 0.00 0.00 - 0.01 K/cumm [facility] Comment:Testing performed by : [facility], [address] [place] [phone] Blood 04/01/2021 9:38 AM MEAT PROCESSING CENTER MANAGER 04/01/2021 9:39 AM MEAT PROCESSING CENTER MANAGER us Gautam Cope MD LAB BLOOD ORDERABLES Final Resul t [facility] [place] [address] * (ABNORMAL) Comprehensive metabolic panel (04/01/2021 9:38 AM MEAT PROCESSING CENTER MANAGER) Sodium 141 135 - 145 mmol/L [facility] Comment:Testing performed by : [facility], [address] [place] [phone] Potassium, pl 4.2 3.3 - 4.9 mmol/L [facility] Comment:Testing performed by : [facility], [address] [place] [phone] Chloride 100 97 - 110 mmol/L [facility] Comment:Testing performed by : [facility], [address] [place] [phone] CO2 34(H) 22 - 32 mmol/L [facility] Comment:Testing performed by : [facility], [address] [place] [phone] Anion gap 7 2 - 15 mmol/L [facility] Comment:Testing performed by : [facility], [address] [place] [phone] BUN 29(H) 8 - 25 mg/dL [facility] Comment:Testing performed by : [facility], [address] [place] [phone] Creatinine 1.52(H) 0.80 - 1.30 mg/dL [facility] Comment:Testing performed by : [facility], [address] [place] [phone] Glucose 153 70 - 199 mg/dL [facility] Comment: [...] was last revised 2017. Testing performed by: [facility], [address] [place] [phone] Calcium 9.3 8.5 - 10.3 mg/dL [facility] Comment:Testing performed by : [address] [address] Bilirubin, total 0.3 0.1 - 1.2 mg/dL [facility] Comment:Testing performed by : [facility], [address] [place] [phone] Protein, pl 6.9 6.5 - 8.5 g/dL [facility] Comment:Testing performed by : [address] [address] Albumin 4.1 3.5 - 5.0 g/dL [facility] Comment:Testing performed by : [address] [address] Alk phos 123 40 - 130 Units/L [facility] Comment:Testing performed by : [facility], [address] [place] [phone] ALT 13 7 - 55 Units/L [facility] Comment:Testing performed by : [address] [address] AST 12 10 - 50 Units/L [facility] Comment:Testing performed by : [address] [phone] Blood 04/01/2021 9:38 AM MEAT PROCESSING CENTER MANAGER 04/01/2021 9:39 AM MEAT PROCESSING CENTER MANAGER Gautam Cope MD LAB BLOOD ORDERABLES Final Resul t Performing Organization Address [facility] de Phone Number [facility] [place] [address] * PSA diagnostic (04/01/2021 9:38 AM MEAT PROCESSING CENTER MANAGER) PSA-Total <0.10 <=6.20 ng/mL [facility] Comment: Interpretive Data ?AGE ? SEX ?REFERENCE INTERVAL 0 minutes-150 years ?Female ?None 0 minutes-49 years ? Male ?None ? 50-59 years ? Male ?0-3.90 ? 60-69 years ? Male ?0-5.40 ? 70-79 years ? Male ?0-6.20 ? 80-150 years ?Male ?0-6.20 Current interpretive data last revised 2017. Blood 04/01/2021 9:38 AM MEAT PROCESSING CENTER MANAGER 04/01/2021 10:31 AM MEAT PROCESSING CENTER MANAGER us Gautam Cope MD LAB BLOOD ORDERABLES Final Resul t Performing Organization Address [facility] Co de Phone Number [facility] [place] [address] documented in this encounter Visit Diagnoses Diagnosis Prostate cancer (HCC) Malignant neoplasm of prostate documented in this encounter Orders Outpatient Referral Count Last Ordered Date Fir st Ordered Date AMB REFERRAL TO ONCOLOGY 1 04/01/2021 Appointment Requests Count Last Ordered Date Fi rst Ordered Date ONCBCN LAB APPOINTMENT 1 04/01/2021 documented in this encounter Care Teams Director Hr Communications Relationship Specialty Start Date End Date Kraig Ching MD [address] [place] [address] PCP - General 07/10/16 Gautam Cope MD [address] [place] [address] Medical Oncologist/Options Advisor Medical Oncology 08/18/18 Tramaine Roe MD [address] [place] [address] Referring Physician Urology 08/18/18 Sukhwinder Uribe MD [address] [place] [address] Consulting Physician Urology 08/18/18 Shay Guillermo MD [address] [place] [address] Referring Physician Urology 08/18/18 Marsha Landis, RN Registered Nurse 11/17/18 documented as of this encounter
--- OUTSIDE RECORDS SUMMARY | 2024-03-31 04:58 | XMS_ITS | Encounter Summary ---
Author Organization [facility] Healthcare Address [address] [place] [address] Care Team Providers Care Cordwainer Name Role Phone Kraig Ching MD Primary Care Provider [phone] Gautam Cope MD Unavailable Tramaine Roe MD Unavailable [phone] Sukhwinder Uribe MD Unavailable [phone] Shay Guillermo MD Unavailable [phone] Marsha Landis RN Unavailable Unavailab le Encounter Details Date Type Department Care Team (Late st Contact Info) Description 12/26/2020 2:25 PM CDT Lab [address] [address] Social History Tobacco Use Types Packs/Day [...] on file 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 Minimize further functional decline 2. Maximize quality of life 3. Control pain Strategies: - Activity/exercise program recommendation - Conservative stepwise pain medicine strategy with multi-disciplinary approach - Recommend healthy lifestyle strategies and compensatory methods as needed documented as of this encounter Visit Diagnoses Not on filedocumented in this encounter Care Teams Cordwainer Relationship Specialty Start Date End Date Kraig Ching MD [address] [place] [address] PCP - General 07/10/16 Gautam Cope MD [address] [place] [address] Medical Oncologist/Commercial Pest Control Representative Medical Oncology 08/18/18 Tramaine Roe MD [address] [place] [address] Referring Physician Urology 08/18/18 Sukhwinder Uribe MD [address] [place] [address] Consulting Physician Urology 08/18/18 Shay Guillermo MD [address] [facility] [address] [place] [address] Referring Physician Urology 08/18/18 Marsha Landis, RN Registered Nurse 11/17/18 documented as of this encounter
--- OUTSIDE RECORDS SUMMARY | 2024-03-31 04:58 | XMS_ITS | Encounter Summary ---
Author Organization [facility] Address [address] [place] [address] Care Team Providers Care Compressed Air Pile Driver Operator Name Role Phone Kraig Ching MD Primary Care Provider [phone] Gautam Cope MD Unavailable Tramaine Roe MD Unavailable [phone] Sukhwinder Uribe MD Unavailable [phone] Shay Guillermo MD Unavailable [phone] Marsha Landis RN Unavailable Unavailab le Reason for Visit * Reason Onset Date Comments Medication Request 05/05/2021 Encounter Details Date Type Department Care Team (Late st Contact Info) Description 05/05/2021 Telephone [facility] [address] [facility] [address] [place] [address] Kraig Ching MD [address] [facility] [address] [place] [address] Medication Request Social History Tobacco [...] on file 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 Patient was informed that his insurance company will not cover this medication. Please call to discuss If needed, Pharmacy(s) medication(s) should be sent to: Pharmacy on file Caller???s Callback #: [phone] Additional Comments: N/A Does message need to be routed? Yes-Action Needed ER TAILER documented in this encounter Plan of Treatment [...] Chronic Care Management No change(03/23 1:47 PM PLANER TAILER) No Ingrid Oden, SHEA Note: Problem: Chronic Pain Goals: 1. Minimize further functional decline 2. Maximize quality of life 3. Control pain Strategies: - Activity/exercise program recommendation - Conservative stepwise pain medicine strategy with multi-disciplinary approach - Recommend healthy lifestyle strategies and compensatory methods as needed documented as of this encounter Visit Diagnoses Not on filedocumented in this encounter Care Teams Compressed Air Pile Driver Operator Relationship Specialty Start Date End Date Kraig Ching MD [address] [place] [address] PCP - General 07/10/16 Gautam Cope MD [address] [place] [address] Medical Oncologist/Form Setter Supervisor Medical Oncology 08/18/18 Tramaine Roe MD [address] [facility] [address] [place] [address] Referring Physician Urology 08/18/18 Sukhwinder Uribe MD [address] [facility] [address] [place] [address] Consulting Physician Urology 08/18/18 Shay Guillermo MD [address] [facility] [address] [place] [address] Referring Physician Urology 08/18/18 Marsha Landis, RN Registered Nurse 11/17/18 documented as of this encounter
--- OUTSIDE RECORDS SUMMARY | 2024-03-31 04:58 | XMS_ITS | Encounter Summary ---
Author Organization [facility] [employer] [facility] Address [address] [place] [address] Phone Care Team Providers Care Steam Generating Powerplant Mechanic Name Role Phone Kraig Ching MD Primary Care Provider [phone] Gautam Cope MD Unavailable Tramaine Roe MD Unavailable [phone] Sukhwinder Uribe MD Unavailable [phone] Shay Guillermo MD Unavailable [phone] Marsha Landis RN Unavailable Unavailab le Reason for Visit * Reason Comments Injections * Episode Based Medications (Routine) - Authorized Specialty Diagnoses / Procedures Referred By Contac t Referred To Contact Oncology Diagnoses Prostate cancer (HCC) Procedures [place] LEUPROLIDE ACETATE SUSPNSION Leuprolide Every 3 Months - Prostate Gautam Cope MD [address] [facility] [address] [place] [address] Phone: tel: fax: [facility]fusion [address] [facility] [address] [place] [address] Referral ID Status Reason Start Date Expiration Date V isits Requested Visits Authorized [id number] Authorized 09/06/2018 07/11/2024 1 50 Encounter Details Date Type Department Care Team (Late st Contact Info) Description 10/15/2020 11:45 AM CDT Infusion [facility] Oncology [address] [facility] Advanced [facility] 7th [place] [address] Prostate cancer (CMS/HCC) (Primary Dx) Social History Tobacco Use Types [...] on file 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 male who presents for the following injection: ORIANA Nursing Assessment Nursing Assessment Appetite:: Good Diarrhea:: No Constipation:: No Existing Patients: Any falls since your last visit? : No New Patients: Any falls since your last visit? : No Fatigue:: Occassional Mouth Sores:: No Nausea/Vomiting:: No Pain:: No Peripheral Neuropathy: : No Pt states has potential to be ? : N/A Shortness of Breath?: No Skin Condition/Temp: Dry, Warm Oral Mucosa Grade: Normal (0) Swelling:: No BP: 132/73 Temp: 36.3 ??C (97.4 ??F) Temp src: Transdermal Pulse: 86 Resp: 18 SpO2: 96 % Weight: 94.3 kg (208 lb) David Wei tolerated injection well Discharge Plan [...] Chronic Care Management No change(03/23 1:47 PM GLASS MELT OPERATOR) No Ingrid Oden, SHEA Note: Problem: [...] 22.5 mg 22.5 mg, subcutaneous, Once, On Wed10/15/20 at 1200, For 1 dose, For subcutaneous use only. Allow product to reach room temperature before using.Indications:Prosta te cancer (HCC) Given 10/15/2020 11:39 AM CDT 22.5 mg Left Lower Abdomen documented in this encounter Orders Appointment Requests Count Last Ordered Date Fi rst Ordered Date ONCBCN INJECTION APPOINTMENT REQUEST 1 09/2020 documented in this encounter Care Teams Steam Generating Powerplant Mechanic Relationship Specialty Start Date End Date Kraig Ching MD [address] [facility] [address] [place] [address] PCP - General 07/10/16 Gautam Cope MD [address] [place] [address] Medical Oncologist/Blueprint Processor Medical Oncology 08/18/18 Tramaine Roe MD [address] [place] [address] Referring Physician Urology 08/18/18 Sukhwinder Uribe MD [address] [place] [address] Consulting Physician Urology 08/18/18 Shay Guillermo MD [address] [place] [address] Referring Physician Urology 08/18/18 Marsha Landis, RN Registered Nurse 11/17/18 documented as of this encounter
--- OUTSIDE RECORDS SUMMARY | 2024-03-31 04:58 | XMS_ITS | Encounter Summary ---
Author Organization [facility] Medical [facility] Address [address] [place] [address] Care Team Providers Care Oil Sales And Service Rep Name Role Phone Kraig Ching MD Primary Care Provider [phone] Gautam Cope MD Unavailable Tramaine Roe MD Unavailable [phone] Sukhwinder Uribe MD Unavailable [phone] Shay Guillermo MD Unavailable [phone] Marsha Landis RN Unavailable Unavailab le Reason for Visit * Reason Onset Date Comments Call Back 05/14/2021 Encounter Details Date Type Department Care Team (Late st Contact Info) Description 05/14/2021 Telephone [facility] [address] [place] [address] Kraig Ching MD [address] [place] [address] Call Back Social History Tobacco Use Types Packs/Day Years [...] on file 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 Yes-FYI Only RTMENT EDITOR * Telephone Encounter - Willie Mtz - 05/14/2021 8:18 AM CST PA started for RX NovoLOG FlexPen 100UNIT/ML pen-injectors(peneding) RTMENT EDITOR documented in this encounter Plan of Treatment [...] to monitor diabetes and kidney status, etc. [facility] Chronic Pain Care Plan Chronic Care Management No change(03/23 1:47 PM DEPARTMENT EDITOR) No Ingrid Oden RN Note: Problem: Chronic Pain Goals: 1. Minimize further functional decline 2. Maximize quality of life 3. Control pain Strategies: - Activity/exercise program recommendation - Conservative stepwise pain medicine strategy with multi-disciplinary approach - Recommend healthy lifestyle strategies and compensatory methods as needed documented as of this encounter Visit Diagnoses Not on filedocumented in this encounter Care Teams Oil Sales And Service Rep Relationship Specialty Start Date End Date Kraig Ching MD [address] [place] [address] PCP - General 07/10/16 Gautam Cope MD [address] [place] [address] Medical Oncologist/Manual Winder Medical Oncology 08/18/18 Tramaine Roe MD [address] [place] [address] Referring Physician Urology 08/18/18 Sukhwinder Uribe MD [address] [place] [address] Consulting Physician Urology 08/18/18 Shay Guillermo MD [address] [place] [address] Referring Physician Urology 08/18/18 Marsha Landis, RN Registered Nurse 11/17/18 documented as of this encounter
--- OUTSIDE RECORDS SUMMARY | 2024-03-31 04:58 | XMS_ITS | Encounter Summary ---
Author Organization [facility] Address [address] [place] [address] Phone Care Team Providers Care Remote Sensing Program Manager Name Role Phone Kraig Ching MD Primary Care Provider [phone] Gautam Cope MD Unavailable Tramaine Roe MD Unavailable [phone] Sukhwinder Uribe MD Unavailable [phone] Shay Guillermo MD Unavailable [phone] Marsha Landis RN Unavailable Unavailab le Encounter Details Date Type Department Care Team (Latest Contact Info) Description 09/11/2020 10:30 AM CDT Telemedicine [facility] Nephrology [address] 5th [place] [address] [place] [address] GABRIELA (acute kidney injury) (CMS/HCC) (Primary Dx); Secondary hyperparathyroidism of renal origin (CMS/HCC) Social History Tobacco Use Types Packs/Day Years [...] on file 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 During the visit, I was located at the outpatient Nephrology Clinic on 5th floor [facility] at [facility] and the patient was located at home in the [facility]. I was present for the entire service with the fellow and patient/caregiver. I agree with the findings and plan of care as documented in the fellow'snote. My visit with the patient started at 10:16 AM and ended at 10:48 AM. My total encounter time on 09/11/2020 was 40 minutes which was spent in the activities documented in the note. This includes time spent prior to the visit and after the visit in direct care of the patient. This time does not in clude time spent in any separately reportable services.. The patient has been informed that the visit may not be secure and acknowledged the information. The option of participating in a telephone or video visit during the COVID-19 public health emergency was explained to them. After being given an opportunity to ask questions about and discuss this typeof visit, they verbally consented to proceeding with the telephone/video visit and understand that this service replaces an office visit. NAME: DAVID DREW DATE OF : 1940 DATE OF VISIT: 09/11/2020 MEDICAL PROBLEM LIST: 1. CKD stage 3 likely secondary to diabetes mellitus and hypertension 2. COPD 3. Paroxysmal atrial fibrillation, Xarelto on hold 4. Type II diabetes mellitus, not on insulin 5. Essential Hypertension 6. Dyslipidemia 7. Pancreatitis in 1999 8. Duodenal Ulcer, EGD 10/2017 Metastatic prostate cancer, diagnosed in 1999, status post radical prostatectomy, adjuvant radiation therapy and hormonal therapy. He is currently on Lupron, abiraterone, and prednisone 10. Prolapsed intervertebral disc REASON FOR OFFICE VISIT: Follow up for CKD INTERVAL HISTORY: Mr. David Drew is a 79 year-old gentleman who returns for follow up of his CKD stage III. He was last seen in the renal clinic in 03/2020. In the interim, he has not been feeling well. He has developed hot flashes that wake him up 4-5 times a night. He has also been experiencing increased urinary frequency, but this is not associated with burning with micturition, difficulties with urination, incontinence, back pain, fever, or chills.All of this has been exacerbating his back pain from prolapsed disc. He states pain is unbearable to a point where he has trouble with ambulation. He denies chest pain, shortness of breath, dizziness, or edema. His appetite has been good. BP at home ranges from 130s to 180s and patient reports fluctuating BP [...] misc TEST BLOOD SUGAR TWICE DAILY ??? amLODIPine (NORVASC) 10 mg tablet Take 1 tablet (10 mg total) by mouth nightly ??? BD Ultra-Fine Short Pen Needle 31 gauge x 5/16 needle USE DIRECTED TO INJECT INSULIN ONCE DAILY ??? blood glucose diagnostic strip ??? carvediloL (COREG) 12.5 mg tablet Take 1 tablet (12.5 mg total) by mouth 2 (two) times a day with meals ??? gabapentin (NEURONTIN) 100 mg capsule TAKE 2 CAPSULES(200 MG) BY MOUTH EVERY NIGHT ??? Januvia 25 mg tablet TAKE 1 TABLET BY MOUTH DAILY ??? lisinopriL (PRINIVIL,ZESTRIL) 20 mg tablet TAKE 1 TABLET(20 MG) BY MOUTH DAILY ??? metFORMIN (GLUCOPHAGE) 500 mg tablet TAKE 1 TABLET(500 MG) BY MOUTH TWICE DAILY WITH MEALS ??? ONETOUCH ULTRA BLUE TEST STRIP strip TEST SUGAR TWICE DAILY ??? oxyCODONE (ROXICODONE) 5 mg immediate release tablet Take 1 tablet (5 mg total) by mouth every 6 (six) hours as needed for pain ??? pantoprazole DR (PROTONIX) 40 mg EC tablet TAKE 1 TABLET(40 MG) BY MOUTH DAILY ??? pravastatin (PRAVACHOL) 20 mg tablet TAKE 1 TABLET BY MOUTH EVERY DAY ??? predniSONE (DELTASONE) 5 mg tablet 5 mg 2 (two) times a day ??? TRAVATAN Z 0.004 % drops INT 1 DROP INTO OU QHS ??? aspirin 81 mg tablet Take 1 tablet (81 mg total) by mouth daily. No current facility-administered medications on file prior to visit. PHYSICAL EXAM: Full physical exam not performed as this is a telehealth visit during COVID-19 pandemic LABORATORY DATA DATE Na K CO2 BUN SCr Alb [...] 4.6 03/07/2019 1.75 03/07/2018 1.41 07/22/2016 1.34 09/04/2020: Urinalysis - Specific gravity 1.016, pH 6.0, no protein or blood, 1+ LE, negative nitrite, 1+ glucose, 20-40 WBCs/HPF, no RBCs ASSESSMENT AND PLAN: 1. Acute kidney injury: Creatinine is up from baseline of 1.8 to 2.8 mg/dL. Suspect this is pre-renal azotemia in the setting of hyperglycemia but cannot rule out other causes including urinary obstruction. Will obtain renal ultrasound to look for structural causes and to rule out hydronephrosis. Will repeat renal function - if no improvement and no obstruction found on renal ultrasound, will decrease or hold lisinopril. May also need to discontinue metformin in the setting of decreased renal function and adjust glycemic regimen - will discuss this with his PCP. 2. Chronic kidney disease, stage 3: The etiology of CKD is likely uncontrolled HTN and diabetes mellitus. Renal function has previously remained stable with Cr of 1.7-1.8. Today, we discussed the importance of improved glycemic and BP control. 3. Hypertension: His BP continues to be poorly controlled based on home BP readings which we suspect is partly from the debilitating back pain he is experiencing. He is currently on carvedilol 12.5 mg bid, lisinopril 20 mg daily, chlorthalidone 25 mg daily and amlodipine 10 mg nightly. As above, wemay need to adjust his BP regimen. 4. Secondary hyperparathyroidism: Calcium is normal and phosphorus is mildly elevated in the setting of GABRIELA - will monitor for now. Vitamin D is low at 19 - will start Ergocalciferol 50,000 units weekly. 5. Hyperkalemia: This is in the setting of GABRIELA and mild. We will repeat K level in the near future. DISPOSITION: The patient will return follow up in 3 months with labs. In the interim, we will reassess renal function and serum potassium. We will also follow up on the results of the renal ultrasound. 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) No Ingrid Oden, SHEA Note: Problem: [...] Associated Diagnosis Comments COPY RECEIVED FROM Routine 09/24/2020 1: 30 PM CDT COPY(IES) SENT TO: Routine 09/24/2020 1: 30 PM CDT RENAL FUNCTION PANEL Routine 09/24/2020 1:30 PM CDT GABRIELA (acute kidney injury) (CMS/HCC) documented in this encounter Results * Copy received from (09/24/2020 1:30 PM CDT) Copy Rec'd from: [facility] Comment: ?[facility] ?[id number] ?[place] [address] 09/24/2020 1:30 PM CDT 09/24/2020 1:31 PM CDT Narrative [facility] - 09/25/2020 7:02 AM CDT PT VARIFIED ALL INFO FASTING:NO FASTING: NO us Nancy Perdue MD LAB BLOOD ORDERABLES Final Result [facility] * COPY(IES) SENT TO: (09/24/2020 1:30 PM CDT) COPY(IES) SENT TO: [facility] Comment: ?[facility] ?[id number] ?[place] [address] 09/24/2020 1:30 PM CDT 09/24/2020 1:31 PM CDT Narrative [facility] - 09/25/2020 7:02 AM CDT PT VARIFIED ALL INFO FASTING:NO FASTING: NO Nancy Perdue MD LAB BLOOD ORDERABLES Final Result [facility] * (ABNORMAL) Renal function panel (09/24/2020 1:30 PM CDT) Glucose 228(H) 65 - 139 mg/dL [facility] Comment: ? Non-fasting reference interval BUN 94(H) 7 - 25 mg/dL [facility] Creatinine 3.17(H) 0.70 - 1.18 mg/dL [facility] Comment: For patients >49 years of age, the reference limit for Creatinine is approximately 13% higher for people identified as -[place]. eGFR NON-AFR. [place] 18(L) > OR = 60 mL/min/1. 73m2 [facility] EGFR 20(L) > OR = 60 mL/min/1. 73m2 [facility] BUN/creat ratio 30(H) 6 - 22 (calc) [facility] Sodium 134(L) 135 - 146 mmol/L [facility] Potassium, pl 5.2 3.5 - 5.3 mmol/L [facility] Chloride 101 98 - 110 mmol/L [facility] CO2 22 20 - 32 mmol/L [facility] Calcium 9.0 8.6 - 10.3 mg/dL [facility] Phosphorus, sr 4.9(H) 2.1 - 4.3 mg/dL [facility] Albumin 3.7 3.6 - 5.1 g/dL [facility] Blood specimen (specimen) 09/24/2020 1:30 PM CDT 09/24/2020 1:31 PM CDT Narrative [facility] - 09/25/2020 7:02 AM CDT PT VARIFIED ALL INFO FASTING:NO FASTING: NO Nancy Perdue MD LAB BLOOD ORDERABLES Final Result [facility] [address] [address] [id number] documented in this encounter Visit Diagnoses Diagnosis GABRIELA (acute kidney injury) (HCC)- Primary Secondary hyperparathyroidism of renal origin (HCC) Secondary hyperparathyroidism (of renal origin) documented in this encounter Discontinued Medications Medication Sig Discontinue Reason Start Date End Da te carvediloL (COREG) 6.25 mg tablet 05/10/2020 09/11/2020 documented as of this encounter Care Teams Remote Sensing Program Manager Relationship Specialty Start Date End Date Kraig Ching MD [address] [place] [address] PCP - General 07/10/16 Gautam Cope MD [address] [place] [address] Medical Oncologist/Cocoa Mill Operator Medical Oncology 08/18/18 Tramaine Roe MD [address] [place] [address] Referring Physician Urology 08/18/18 Sukhwinder Uribe MD [address] [place] [address] Consulting Physician Urology 08/18/18 Shay Guillermo MD [address] [place] [address] Referring Physician Urology 08/18/18 Marsha Landis, RN Registered Nurse 11/17/18 documented as of this encounter
--- OUTSIDE RECORDS SUMMARY | 2024-03-31 04:58 | XMS_ITS | Encounter Summary ---
Author Organization [facility] [employer] [facility] Address [address] [place] [address] Phone Care Team Providers Care Neon Installer Name Role Phone Kraig Ching MD Primary Care Provider [phone] Gautam Cope MD Unavailable Tramaine Roe MD Unavailable [phone] Sukhwinder Uribe MD Unavailable [phone] Shay Guillermo MD Unavailable [phone] Marsha Landis RN Unavailable Unavailab le Reason for Visit * Episode Based Medications (Routine) - Authorized Specialty Diagnoses / Procedures Referred By Saleem t Referred To Contact Oncology Diagnoses Prostate cancer (HCC) Procedures NM LEUPROLIDE ACETATE SUSPNSION Leuprolide Every 3 Months - Prostate Gautam Cope MD [address] [facility] [address] [place] [address] Phone: tel: fax: [facility] [address] [facility] [address] [place] [address] Referral ID Status Reason Start Date Expiration Date V isits Requested Visits Authorized [id number] Authorized 09/06/2018 07/11/2024 1 50 Encounter Details Date Type Department Care Team (Late st Contact Info) Description 01/07/2021 12:30 PM CDT Lab [facility] Oncology [address] 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 Minimize further functional decline 2. Maximize quality of life 3. Control pain Strategies: - Activity/exercise program recommendation - Conservative stepwise pain medicine strategy with multi-disciplinary approach - Recommend healthy lifestyle strategies and compensatory methods as needed documented as of this encounter Procedures Procedure Name Priority Date/Time Associated Diagnosis Comments EGFR STAT 01/07/2021 12:44 PM CDT Prostate cancer ([facility]/HCC) (HCC) DIFFERENTIAL AUTO Routine 01/07/2021 12: 44 PM CDT Prostate cancer (CMS/HCC) (HCC) CBC WITH AUTO DIFFERENTIAL Routine 01/07/2021 12:44 PM CDT Prostate cancer (CMS/HCC) (HCC) PSA DIAGNOSTIC Routine 01/07/2021 12:44 PM CDT Prostate cancer ([facility]/HCC) (HCC) LACTATE DEHYDROGENASE Routine 01/07/2021 12:44 PM CDT Prostate cancer (CMS/HCC) (HCC) COMPREHENSIVE METABOLIC PANEL STAT 01/07/2021 12:44 PM CDT Prostate cancer (CMS/HCC) (HCC) documented in this encounter Results * (ABNORMAL) eGFR (01/07/2021 12:44 PM CDT) Pathologist [facility] eGFR 42(L) 90 - 130 mL/min/1.7 3 m2 [facility] Comment: Interpretive Data Reference Interval Normal ?>/= 90 mL/min/1.73m2 Mildly decreased* ? 60 - 89 mL/min/1.73m2 Mildly to moderately decreased ?45 - 59 mL/min/1.73m2 Moderately to severely decreased ??30 - 44 mL/min/1.73m2 Severely decreased ?15 - 29 mL/min/1.73m2 Kidney Failure ?< 15 ??mL/min/1.73m2 *Relative to young adult level Estimated glomerular filtration rate is determined by the CKD-EPI equation recommended by the National Kidney Foundation (KDIGO 2012 Clinical Practice Guideline for the Evaluation and Management of Chronic Kidney Disease. Kidney Intnl Suppl Apr 2012;3:1). The CKD-EPI equation should not be used for patients with unstable renal function and has not been validated in children and those over 70. Current interpretive data was last reviewed 2020 Testing performed by: [facility], [address] [place] [phone] Blood 01/07/2021 12:4 4 PM CDT 01/07/2021 12:45 PM CDT us Gautam Cope MD LAB BLOOD ORDERABLES Final Resul t [facility] [place] [address] * (ABNORMAL) Differential, auto (01/07/2021 12:44 PM CDT) Neutrophil abs 10.6(H) 1.8 - 6.6 K/cumm [facility] Comment:Testing performed by : [facility], [address] [place] [address] Lymphocyte abs 1.0(L) 1.2 - 3.3 K/cumm [facility] Comment:Testing performed by : [facility], [address] [place] [address] Monocyte abs 0.8 0.2 - 1.2 K/cumm [facility] Comment:Testing performed by : [facility], [address] [place] [address] Eosinophil abs 0.1 0.0 - 0.5 K/cumm [facility] Comment:Testing performed by : [facility], [address] [place] [address] Basophil abs 0.1 0.0 - 0.2 K/cumm [facility] Comment:Testing performed by : [facility], [address] [place] [address] Neutrophil pct 84.5 % [facility] Comment: Interpretive Data Percent cell count reference ranges are not reported, since discordance with absolute values may lead to misinterpretation of CBC data. Current Interpretive Data was last revised on 2017. Testing performed by: [facility], [address] [place] [address] Lymphocyte pct 8.2 % [facility] Comment: Interpretive Data Percent cell count reference ranges are not reported, since discordance with absolute values may lead to misinterpretation of CBC data. Current Interpretive Data was last revised on 2017. Testing performed by: [facility], [address] [place] [address] Monocyte pct 6.1 % [facility] Comment:Testing performed by : [facility], [address] [place] [address] Eosinophil pct 0.6 % [facility] Comment:Testing performed by : [facility], [address] [place] [address] Basophil pct 0.6 % [facility] Comment:Testing performed by : [facility], [address] [place] [phone] Blood 01/07/2021 12:4 4 PM CDT 01/07/2021 12:45 PM CDT us Gautam Cope MD LAB BLOOD ORDERABLES Final Resul t Performing Organization Address [facility] de Phone Number [facility] Department [place] [address] * Lactate dehydrogenase (LD) (01/07/2021 12:44 PM CDT) Pathologist [facility] Lactate dehydrogenase (LDH) 177 100 - 250 Units/L [facility] Comment:Testing performed by : [facility], [address] [place] [address] Blood 01/07/2021 12:4 4 PM CDT 01/07/2021 12:45 PM CDT Gautam Cope MD LAB BLOOD ORDERABLES Final Resul t Performing Organization Address [facility] de Phone Number [facility] Department [place] [address] * (ABNORMAL) CBC with auto differential (01/07/2021 12:44 PM CDT) Pathologist [facility] WBC 12.6(H) 3.8 - 9.8 K/cumm [facility] Comment:Testing performed by : [facility], [address] [place] [address] Hgb 12.8(L) 13.8 - 17.2 g/dL [facility] Comment:Testing performed by : [facility], [address] [place] [address] Hct 38.4(L) 40.7 - 50.3 % [facility] Comment:Testing performed by : [facility], [address] [place] [address] Plt 374 140 - 440 K/cumm [facility] Comment:Testing performed by : [facility], [address] [place] [address] MPV 7.4 6.8 - 10.4 fL [facility] Comment:Testing performed by : [facility], [address] [place] [address] RBC 4.30(L) 4.50 - 5.70 M/cumm [facility] Comment:Testing performed by : [facility], [address] [place] [address] MCV 89.2 80.0 - 97.6 fL [facility] Comment:Testing performed by : [facility], [address] [place] [address] MCH 29.6 26.7 - 33.7 pg [facility] Comment:Testing performed by : [facility], [address] [place] [address] MCHC 33.2 32.7 - 35.5 g/dL [facility] Comment:Testing performed by : [facility], [address] [place] [address] RDW CV 14.4 11.8 - 14.6 % [facility] Comment:Testing performed by : [facility], [address] [place] [address] NRBC abs 0.00 0.00 - 0.01 K/cumm [facility] Comment:Testing performed by : [facility], [address] [place] [address] Blood 01/07/2021 12:4 4 PM CDT 01/07/2021 12:45 PM CDT us Gautam Cope MD LAB BLOOD ORDERABLES Final Resul t [facility] Department [place] [address] * (ABNORMAL) Comprehensive metabolic panel (01/07/2021 12:44 PM CDT) Sodium 138 135 - 145 mmol/L [facility] Comment:Testing performed by : [facility], [address] [place] [address] Potassium, pl 3.8 3.3 - 4.9 mmol/L [facility] Comment:Testing performed by : [facility], [address] [place] [address] Chloride 99 97 - 110 mmol/L [facility] Comment:Testing performed by : [facility], [address] [place] [address] CO2 29 22 - 32 mmol/L [facility] Comment:Testing performed by : [facility], [address] [place] [address] Anion gap 10 2 - 15 mmol/L [facility] Comment:Testing performed by : [facility], [address] [place] [address] BUN 32(H) 8 - 25 mg/dL [facility] Comment:Testing performed by : [facility], [address] [place] [address] Creatinine 1.54(H) 0.80 - 1.30 mg/dL [facility] Comment:Testing performed by : [address] [address] Glucose 296(H) 70 - 199 mg/dL [facility] Comment: [...] was last revised 2017. Testing performed by: [facility], [address] [place] [address] Calcium 8.8 8.5 - 10.3 mg/dL [facility] Comment:Testing performed by : [facility], [address] [place] [address] Bilirubin, total 0.3 0.1 - 1.2 mg/dL [facility] Comment:Testing performed by : [address] [address] Protein, pl 6.4(L) 6.5 - 8.5 g/dL [facility] Comment:Testing performed by : [facility], [address] [place] [address] Albumin 3.9 3.5 - 5.0 g/dL [facility] Comment:Testing performed by : [facility], [address] [place] [address] Alk phos 118 40 - 130 Units/L [facility] Comment:Testing performed by : [facility], [address] [place] [address] ALT 12 7 - 55 Units/L [facility] Comment:Testing performed by : [facility], [address] [place] [address] AST 11 10 - 50 Units/L [facility] Comment:Testing performed by : [facility], [address] [place] [address] Blood 01/07/2021 12:4 4 PM CDT 01/07/2021 12:45 PM CDT us Gautam Cope MD LAB BLOOD ORDERABLES Final Resul t [facility] Department [place] [address] * PSA diagnostic (01/07/2021 12:44 PM CDT) PSA-Total <0.10 <=6.20 ng/mL [facility] Comment: Interpretive Data ?AGE ? SEX ?REFERENCE INTERVAL 0 minutes-150 years ?Female ?None 0 minutes-49 years ? Male ?None ? 50-59 years ? Male ?0-3.90 ? 60-69 years ? Male ?0-5.40 ? 70-79 years ? Male ?0-6.20 ? 80-150 years ?Male ?0-6.20 Current interpretive data last revised 2017. Blood 01/07/2021 12:4 4 PM CDT 01/07/2021 1:13 PM CDT us Gautam Cope MD LAB BLOOD ORDERABLES Final Resul t [facility] [place] [address] documented in this encounter Visit Diagnoses Diagnosis Prostate cancer (HCC) Malignant neoplasm of prostate documented in this encounter Orders Appointment Requests Count Last Ordered Date Fi rst Ordered Date ONCBCN LAB APPOINTMENT 1 01/07/2021 documented in this encounter Care Teams Neon Installer Relationship Specialty Start Date End Date Kraig Ching MD [address] [place] [address] PCP - General 07/10/16 Gautam Cope MD [address] [place] [address] Medical Oncologist/Industrial Boilermaker Medical Oncology 08/18/18 Tramaine Roe MD [address] [place] [address] Referring Physician Urology 08/18/18 Sukhwinder Uribe MD [address] [place] [address] Consulting Physician Urology 08/18/18 Shay Guillermo MD [address] [place] [address] Referring Physician Urology 08/18/18 Marsha Landis, RN Registered Nurse 11/17/18 documented as of this encounter
--- OUTSIDE RECORDS SUMMARY | 2024-03-31 04:58 | XMS_ITS | Encounter Summary ---
Author Organization [facility] Address [address] [facility] [address] [place] [address] Care Team Providers Care Document Coordinator Name Role Phone Kraig Ching MD Primary Care Provider [phone] Gautam Cope MD Unavailable Tramaine Roe MD Unavailable [phone] Sukhwinder Uribe MD Unavailable [phone] Shay Guillermo MD Unavailable [phone] Marsha Landis RN Unavailable Unavailab le Encounter Details Date Type Department Care Team (Late st Contact Info) Description 05/07/2021 Telephone [facility] [address] [facility] [address] [place] [address] Kraig Ching MD [address] [facility] [address] [place], [place] [id number] Social History Tobacco Use Types Packs/Day Years [...] on file 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 Exact same directions, quantities and refills. ROOM OPERATOR * Telephone Encounter - Kellen Patten MA - 05/08/2021 5:55 PM CST Please change med and see note ROOM OPERATOR * Telephone Encounter - Dina Mariana - 05/07/2021 2:44 PM CST New Prescription needed. [facility] in [place], [place] called [phone] She said Basaglar was not covered by pt's insurance. She asked if it could be changed to Lantus. If so, please change prescription and call mari to let her know. ROOM OPERATOR documented in this encounter Plan of [...] monitor diabetes and kidney status, etc. [facility] Chronic Pain Care Plan Chronic Care Management No change(03/23 1:47 PM PUMP ROOM OPERATOR) No Ingrid Oden, SHEA Note: Problem: Chronic Pain Goals: 1. Minimize further functional decline 2. Maximize quality of life 3. Control pain Strategies: - Activity/exercise program recommendation - Conservative stepwise pain medicine strategy with multi-disciplinary approach - Recommend healthy lifestyle strategies and compensatory methods as needed documented as of this encounter Visit Diagnoses Not on filedocumented in this encounter Care Teams Document Coordinator Relationship Specialty Start Date End Date Kraig Ching MD [address] [place], [place] [id number] PCP - General 07/10/16 Gautam Cope MD [address] [place] [address] Medical Oncologist/Rib Cutter Medical Oncology 08/18/18 Tramaine Roe MD [address] [place] [address] Referring Physician Urology 08/18/18 Sukhwinder Uribe MD [address] [place] [address] Consulting Physician Urology 08/18/18 Shay Guillermo MD [address] [place] [address] Referring Physician Urology 08/18/18 Marsha Landis, RN Registered Nurse 11/17/18 documented as of this encounter
--- OUTSIDE RECORDS SUMMARY | 2024-03-31 04:58 | XMS_ITS | Encounter Summary ---
Author Organization [facility] Healthcare Address [address] [place] [address] Care Team Providers Care Wellness Ambassador Name Role Phone Kraig Ching MD Primary Care Provider [phone] Gautam Cope MD Unavailable Tramaine Roe MD Unavailable [phone] Sukhwinder Uribe MD Unavailable [phone] Shay Guillermo MD Unavailable [phone] Marsha Landis RN Unavailable Unavailab le Reason for Referral * MRI/CAT/PET Scan (Routine) - Closed Specialty Diagnoses / Procedures Referred By Saleem narvaez Referred To Contact Radiology Diagnoses Prostate cancer (HCC) Procedures CT chest abdomen pelvis without contrast Gautam Cope MD [address] [address] Phone: tel: fax: [facility] [address] [place] [address] Referral ID Status Reason Start Date Expiration Date Visits Re quested Visits Authorized [id number] Closed 01/01/2021 01/31/2022 1 1 JAVA ENGINEER Reason for Visit * MRI/CAT/PET Scan (Routine) - Closed Specialty Diagnoses / Procedures Referred By Saleem narvaez Referred To Contact Radiology Diagnoses Prostate cancer (HCC) Procedures CT chest abdomen pelvis without contrast Gautam Cope MD [address] [facility] [address] [place] [address] Phone: tel: fax: [facility] 1 [facility] [place] [address] Referral ID Status Reason Start Date Expiration Date Visits Re quested Visits Authorized [id number] Closed 01/01/2021 01/31/2022 1 1 Encounter Details Date Type Department Care Team (Latest Contact Info) Description 03/25/2021 10:22 AM CORE JAVA ENGINEER - 03/25/2021 11:59 PM CORE JAVA ENGINEER Hospital Encounter [facility] [address] [place] [address] Gautam Cope MD [address] [facility] [address] [place] [address] Prostate cancer (CMS/HCC) (HCC) Discharge [...] on file 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 CORE JAVA ENGINEER Gender Identity Not on file Sexual Orientation Not on file documented as of this encounter Medications at Time of Discharge abiraterone (ZYTIGA) 250 mg tabletIndication s:Prostate cancer (HCC) Take 4 tablets (1,000 mg) by mouth daily. Do not eat anything for at least 2 hours before and for at least 1 hour after 120 tablet 11 04/24/2020 2 Accu-Chek Fastclix Lancet Drum misc TEST BLOOD SUGAR TWICE DAILY 204 each 1 12/17/2019 2 amLODIPine (NORVASC) 10 mg tabletIndication s:Hypertensive kidney disease with chronic kidney disease stage III ([facility]) Take 1 tablet (10 mg total) by mouth nightly Pt needs to call MD for f/u appt [phone]. 90 tablet 12/23/2020 2 aspirin 81 mg tablet Take 1 tablet (81 mg total) by mouth daily. 30 tablet 11 03/07/2018 3 BASAGLAR 100 unit/mL (3 mL) pen for injection Inject 20 units SC daily new dose 8 mL 3 12/26/2020 1 BD Ultra-Fine Short Pen Needle 31 gauge x 5/16 needle USE DIRECTED TO INJECT INSULIN ONCE DAILY 100 each 01/04/2020 2 blood glucose diagnostic strip 11/10/19 2 3 carvediloL (COREG) 12.5 mg tabletIndication s:CKD (chronic kidney disease) stage 3, GFR 30-59 ml/min ([facility]) TAKE 1 TABLET(12.5 MG) BY MOUTH TWICE DAILY WITH MEALS 120 tablet 12/12/2020 2 chlorthalidone 25 mg tablet TAKE 1 TABLET(25 MG) BY MOUTH DAILY 30 tablet 11 09/18/2020 2 gabapentin (NEURONTIN) 100 mg capsule TAKE 2 CAPSULES(200 MG) BY MOUTH EVERY NIGHT 60 capsule 3 01/22/2020 2 glimepiride (AMARYL) 1 mg tabletIndication s:type 2 diabetes mellitus Take 1 tablet (1 mg total) by mouth daily before breakfast 30 tablet 11 02/28/2021 2 Januvia 25 mg tabletIndication s:Type 2 diabetes mellitus with stage 3 chronic kidney disease, without long-term current use of insulin ([facility]) TAKE 1 TABLET BY MOUTH DAILY 30 tablet 11 02/17/2021 2 ONETOUCH ULTRA BLUE TEST STRIP strip TEST SUGAR TWICE DAILY 100 each 3 09/20/2017 3 oxyCODONE (ROXICODONE) 5 mg immediate release tabletIndication s:Pain Take 1 tablet (5 mg total) by mouth every 6 (six) hours as needed for pain 28 tablet 02/06/[address] (PROTONIX) 40 mg EC tablet TAKE 1 TABLET(40 MG) BY MOUTH DAILY 90 tablet 1 11/09/2020 2 pravastatin (PRAVACHOL) 20 mg tablet TAKE 1 TABLET BY MOUTH EVERY DAY 90 tablet 1 02/06/2021 2 predniSONE (DELTASONE) 5 mg tablet Take 1 tablet (5 mg) by mouth two times a day 60 tablet 11 11/21/2020 2 TRAVATAN Z 0.004 % drops INT 1 [...] to monitor diabetes and kidney status, etc. [facility] Chronic Pain Care Plan Chronic Care Management No change(03/23 1:47 PM CORE JAVA ENGINEER) No Ingrid Oden RN Note: Problem: Chronic Pain Goals: 1. Minimize further functional decline 2. Maximize quality of life 3. Control pain Strategies: - Activity/exercise program recommendation - Conservative stepwise pain medicine strategy with multi-disciplinary approach - Recommend healthy lifestyle strategies and compensatory methods as needed documented as of this encounter Procedures Procedure Name Priority Date/Time Associated Diagnosis Comments CT CHEST ABDOMEN PELVIS WO CONTRAST Schedule Routine, Read Routine (OP Routine) 03/25/2021 11:54 AM CORE JAVA ENGINEER Prostate cancer (CMS/HCC) (HCC) documented in this encounter Results * CT chest abdomen pelvis without contrast (03/25/2021 11:54 AM CORE JAVA ENGINEER) Anatomical Region Laterality Modality Body N/A Computed Tomogra phy 03/25/2021 12:3 6 PM CORE JAVA ENGINEER Impressions 03/25/2021 12:36 PM CORE JAVA ENGINEER 1. Stable groundglass nodules in the right upper and lower lobes measuring up to 13 mm, suspicious for low-grade adenocarcinoma. Attention on follow-up is recommended. 2. Improved L2 sclerotic lesion. Otherwise, no CT evidence of metastatic disease. Electronically signed by: Promise Sheffield M.D. Narrative 03/25/2021 12:36 PM CORE JAVA ENGINEER Examination: CT chest, abdomen, and pelvis without intravenous contrast TECHNIQUE: Standard CT of the chest, abdomen, and pelvis was performed without intravenous contrast. HISTORY: Prostate cancer. Follow-up. Comparison is made to the prior exam from 08/15/2019, 09/13/2018, and 02/28/2015. There is no axillary, supraclavicular, or mediastinal lymphadenopathy. The heart is normal in size without pericardial effusion. Atherosclerotic calcifications of the aorta, visceral arteries, and coronary arteries are seen. ??Lipomatous hypertrophy of the anterior tibial septum is noted. The noncontrast examination of the thyroid is unremarkable. The central airways are clear. There is no focal consolidation or suspicious pulmonary nodule. Bibasilar lung scarring is noted. Multiple groundglass nodules are seen in the right upper and right lower lobes, for reference on image 80 series 3 measuring 12 mm, stable. Mild emphysema is noted. There is no pleural effusion or pneumothorax. The noncontrast examination of the liver is unremarkable. The spleen, pancreas, adrenal glands, and urinary bladder are unremarkable. Penile prosthesis is partially visualized with a reservoir in the left lower quadrant. Small left renal cyst is seen redemonstrated hypodense right adrenal lesion measuring 13 mm on image 190 series 2, stable from 2014 and likely representing hemorrhagic cyst. The kidneys are otherwise unremarkable. There is no hydronephrosis. Colonic uptake is seen without CT findings of diverticulitis. The colon and small bowel are otherwise grossly unremarkable. There is no free intra-abdominal air or fluid. The appendix is normal. There is no intra-abdominal lymphadenopathy. Changes of total prostatectomy are seen with pelvic lymph node dissection The bone window demonstrate stable multiple multilevel degenerative changes with grade 1 anterolisthesis of L4 and L5. The previously seen sclerotic lesion in L2 vertebral body has improved no new suspicious osseous lesion. Procedure Note Promise Sheffield MD - 03/25/2021 Examination: CT chest, abdomen, and pelvis without intravenous contrast TECHNIQUE: Standard CT of the chest, abdomen, and pelvis was performed without intravenous contrast. HISTORY: Prostate cancer. Follow-up. Comparison is made to the prior exam from 08/15/2019, 09/13/2018, and 02/28/2015. There is no axillary, supraclavicular, or mediastinal lymphadenopathy. The heart is normal in size without pericardial effusion. Atherosclerotic calcifications of the aorta, visceral arteries, and coronary arteries are seen. Lipomatous hypertrophy of the anterior tibial septum is noted. The noncontrast examination of the thyroid is unremarkable. The central airways are clear. There is no focal consolidation or suspicious pulmonary nodule. Bibasilar lung scarring is noted. Multiple groundglass nodules are seen in the right upper and right lower lobes, for reference on image 80 series 3 measuring 12 mm, stable. Mild emphysema is noted. There is no pleural effusion or pneumothorax. The noncontrast examination of the liver is unremarkable. The spleen, pancreas, adrenal glands, and urinary bladder are unremarkable. Penile prosthesis is partially visualized with a reservoir in the left lower quadrant. Small left renal cyst is seen redemonstrated hypodense right adrenal lesion measuring 13 mm on image 190 series 2, stable from 2015 and likely representing hemorrhagic cyst. The kidneys are otherwise unremarkable. There is no hydronephrosis. Colonic uptake is seen without CT findings of diverticulitis. The colon and small bowel are otherwise grossly unremarkable. There is no free intra-abdominal air or fluid. The appendix is normal. There is no intra-abdominal lymphadenopathy. Changes of total prostatectomy are seen with pelvic lymph node dissection The bone window demonstrate stable multiple multilevel degenerative changes with grade 1 anterolisthesis of L4 and L5. The previously seen sclerotic lesion in L2 vertebral body has improved no new suspicious osseous lesion. IMPRESSION: 1. Stable groundglass nodules in the right upper and lower lobes measuring up to 13 mm, suspicious for low-grade adenocarcinoma. Attention on follow-up is recommended. 2. Improved L2 sclerotic lesion. Otherwise, no CT evidence of metastatic disease. Electronically signed by: Promise Sheffield M.D. Gautam Cope MD IMG CT PROCEDURES Final Result documented in this encounter Visit Diagnoses Diagnosis Prostate cancer (HCC) Malignant neoplasm of prostate documented in this encounter Care Teams Wellness Ambassador Relationship Specialty Start Date End Date Kraig Ching MD [address] [place], [place] [id number] PCP - General 07/10/16 Gautam Cope MD [address] [place] [address] Medical Oncologist/Utility Lineman Medical Oncology 08/18/18 Tramaine Roe MD [address] [facility] [address] [place] [address] Referring Physician Urology 08/18/18 Sukhwinder Uribe MD [address] [facility] [address] [place] [address] Consulting Physician Urology 08/18/18 Shay Guillermo MD [address] [facility] [address] [place] [address] Referring Physician Urology 08/18/18 Marsha Landis, RN Registered Nurse 11/17/18 documented as of this encounter
--- OUTSIDE RECORDS SUMMARY | 2024-03-31 04:58 | XMS_ITS | Encounter Summary ---
Author Organization [facility] Address [address] [place] [address] Phone Care Team Providers Care Acid Conditioner Name Role Phone Kraig Ching MD Primary Care Provider [phone] Gautam Cope MD Unavailable Tramaine Roe MD Unavailable [phone] Sukhwinder Uribe MD Unavailable [phone] Shay Guillermo MD Unavailable [phone] Marsha Landis RN Unavailable Unavailab le Encounter Details Date Type Department Care Team (Late st Contact Info) Description 09/19/2020 Telephone [facility] Nephrology [address] [facility] Advanced Medicine 5th [place] [address] [place] [address] [place] Aragon, RN Social History [...] on file 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 CAR 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 Patient had no further questions. Patient stated that he would get ordered RFP next week. documented in this encounter Plan of Treatment [...] Chronic Care Management No change(03/23 1:47 PM CAR CHECKER) No Ingrid Oden, SHEA Note: Problem: Chronic Pain Goals: 1. Minimize further functional decline 2. Maximize quality of life 3. Control pain Strategies: - Activity/exercise program recommendation - Conservative stepwise pain medicine strategy with multi-disciplinary approach - Recommend healthy lifestyle strategies and compensatory methods as needed documented as of this encounter Visit Diagnoses Not on filedocumented in this encounter Care Teams Acid Conditioner Relationship Specialty Start Date End Date Kraig Ching MD [address] [place] [address] PCP - General 07/10/16 Gautam Cope MD [address] [place] [address] Medical Oncologist/Tile Helper Medical Oncology 08/18/18 Tramaine Roe MD [address] [place] [address] Referring Physician Urology 08/18/18 Sukhwinder Uribe MD [address] [place] [address] Consulting Physician Urology 08/18/18 Shay Guillermo MD [address] [place] [address] Referring Physician Urology 08/18/18 Marsha Landis, RN Registered Nurse 11/17/18 documented as of this encounter
--- OUTSIDE RECORDS SUMMARY | 2024-03-31 04:58 | XMS_ITS | Encounter Summary ---
Author Organization [facility] Healthcare Address [address] [place] [address] Care Team Providers Care Delicatessen Department Manager Name Role Phone Kraig Ching MD Primary Care Provider [phone] Gautam Cope MD Unavailable Tramaine Roe MD Unavailable [phone] Sukhwinder Uribe MD Unavailable [phone] Shay Guillermo MD Unavailable [phone] Marsha Landis RN Unavailable Unavailab le Reason for Referral * Diagnostic Imaging (Routine) - Closed Specialty Diagnoses / Procedures Referred By Contac t Referred To Contact Diagnoses Pain management Procedures FL Fluoroscopy < 1 Hour (Statistical Only) Maru Arreola MD PhD [address] [place] [address] Phone: tel: fax: [facility] [address] [place] [address] Referral ID Status Reason Start Date Expiration Date Visits Re quested Visits Authorized [id number] Closed 10/09/2020 11/08/2021 1 1 Reason for Visit * Diagnostic Imaging (Routine) - Closed Specialty Diagnoses / Procedures Referred By Contac t Referred To Contact Diagnoses Pain management Procedures FL Fluoroscopy < 1 Hour (Statistical Only) Maru Arreola MD PhD [address] [facility] [address] [facility] [phone] [place] [address] Phone: tel: fax: [address] [address] Referral ID Status Reason Start Date Expiration Date Visits Re quested Visits Authorized [id number] Closed 10/09/2020 11/08/2021 1 1 Encounter Details Date Type Department Care Team (Latest Contact Info) Description 10/10/2020 7:13 AM CDT - 10/10/2020 10:47 AM CDT Hospital Encounter [facility] Pain Management [facility]) [address] [place] [id number] Pain management Discharge Disposition: Discharge to home or self [...] file 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 Minimize further functional decline 2. Maximize quality of life 3. Control pain Strategies: - Activity/exercise program recommendation - Conservative stepwise pain medicine strategy with multi-disciplinary approach - Recommend healthy lifestyle strategies and compensatory methods as needed documented as of this encounter Procedures Procedure Name Priority Date/Time Associated Diagnosis Comments FL FLUOROSCOPY < 1 HOUR (STATISTICAL ONLY) Schedule Routine, Read Routine (OP Routine) 10/10/2020 12:32 PM CDT Pain management documented in this encounter Results * FL Fluoroscopy < 1 Hour (Statistical Only) (10/10/2020 12:32 PM CDT) Narrative [facility] - 10/10/2020 12:33 PM CDT The images from this study are not interpreted by Radiology. ??Please refer to the physician's procedure / OR operative note. us Maru Arreola MD PhD IMG FLUOROSCOPY PROCEDUR ES Final Result Performing Organization Address City/State/[facility] [place] Phone Number [facility] documented in this encounter Visit Diagnoses Diagnosis Pain management documented in this encounter Care Teams Delicatessen Department Manager Relationship Specialty Start Date End Date Kraig Ching MD [address] [place] [address] PCP - General 07/10/16 Gautam Cope MD [address] [place] [address] Medical Oncologist/Novelty Twister Tender Medical Oncology 08/18/18 Tramaine Roe MD [address] [facility] [address] [place] [address] Referring Physician Urology 08/18/18 Sukhwinder Uribe MD [address] [facility] [address] [place] [address] Consulting Physician Urology 08/18/18 Shay Guillermo MD [address] [facility] [address] [place] [address] Referring Physician Urology 08/18/18 Marsha Landis, RN Registered Nurse 11/17/18 documented as of this encounter
--- OUTSIDE RECORDS SUMMARY | 2024-03-31 04:58 | XMS_ITS | Encounter Summary ---
Author Organization [facility] Address [address] [place] [address] Phone Care Team Providers Care Marine Steam Fitter Name Role Phone Kraig Ching MD Primary Care Provider [phone] Gautam Cope MD Unavailable Tramaine Roe MD Unavailable [phone] Sukhwinder Uribe MD Unavailable [phone] Shay Guillermo MD Unavailable [phone] Marsha Landis RN Unavailable Unavailab le Encounter Details Date Type Department Care Team (Late st Contact Info) Description 03/28/2021 Orders Only [facility] Oncology [address] [facility] Advanced Medicine 7th [place] [address] [place] [id number] Muna Saleem RN Prostate cancer (CMS/HCC) (HCC) [...] on file 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 Minimize further functional decline 2. Maximize quality of life 3. Control pain Strategies: - Activity/exercise program recommendation - Conservative stepwise pain medicine strategy with multi-disciplinary approach - Recommend healthy lifestyle strategies and compensatory methods as needed documented as of this encounter Results * PSA diagnostic (06/24/2021 9:40 AM CDT) PSA-Total <0.02 <=6.20 ng/mL [facility] [...] 9:40 AM CDT 06/24/2021 10:11 AM CDT us Gautam Cope MD LAB BLOOD ORDERABLES Final Resul t [facility] Department [place] [address] * (ABNORMAL) Comprehensive metabolic panel (06/24/2021 9:40 AM CDT) Sodium 142 135 - 145 mmol/L [facility] Comment:Testing performed by : [facility], [address] [place] [phone] Potassium, pl 4.9 3.3 - 4.9 mmol/L [facility] Comment:Testing performed by : [facility], [address] [place] [phone] Chloride 102 97 - 110 mmol/L [facility] Comment:Testing performed by : [facility], [address] [place] [phone] CO2 31 22 - 32 mmol/L [facility] Comment:Testing performed by : [facility], [address] [place] [phone] Anion gap 9 2 - 15 mmol/L [facility] Comment:Testing performed by : [address] [address] BUN 48(H) 8 - 25 mg/dL [facility] Comment:Testing performed by : [facility], [address] [place] [phone] Creatinine 2.25(H) 0.80 - 1.30 mg/dL [facility] Comment:Testing performed by : [facility], [address] [place] [phone] Glucose 176 70 - 199 mg/dL [facility] Comment: Interpretive Data Fasting glucose >/= [...] was last revised 2017. Testing performed by: [address] [phone] Calcium 9.3 8.5 - 10.3 mg/dL [facility] Comment:Testing performed by : [facility], [address] [place] [phone] Bilirubin, total 0.3 0.1 - 1.2 mg/dL [facility] Comment:Testing performed by : [facility], [address] [place] [phone] Protein, pl 6.9 6.5 - 8.5 g/dL [facility] Comment:Testing performed by : [facility], [address] [place] [phone] Albumin 4.2 3.5 - 5.0 g/dL [facility] Comment:Testing performed by : [facility], [address] [place] [phone] Alk phos 119 40 - 130 Units/L [facility] Comment:Testing performed by : [facility], [address] [place] [phone] ALT 13 7 - 55 Units/L [facility] Comment:Testing performed by : [facility], [address] [place] [phone] AST 13 10 - 50 Units/L [facility] Comment:Testing performed by : [facility], [address] [place] [phone] Blood 06/24/2021 9:40 AM CDT 06/24/2021 9:41 AM CDT us Gautam Cope MD LAB BLOOD ORDERABLES Final Resul t [facility] Department [place] [address] * (ABNORMAL) CBC with auto differential (06/24/2021 9:40 AM CDT) WBC 9.8 3.8 - 9.8 K/cumm [facility] Comment:Testing performed by : [facility], [address] [place] [phone] Hgb 12.9(L) 13.8 - 17.2 g/dL [facility] Comment:Testing performed by : [facility], [address] [place] [phone] Hct 38.7(L) 40.7 - 50.3 % [facility] Comment:Testing performed by : [facility], [address] [place], [place] [phone] Plt 325 140 - 440 K/cumm [facility] Comment:Testing performed by : [facility], [address] [place] [phone] MPV 7.6 6.8 - 10.4 fL [facility] Comment:Testing performed by : [facility], [address] [place], [place] [phone] RBC 4.41(L) 4.50 - 5.70 M/cumm [facility] Comment:Testing performed by : [facility], [address] [place], [place] [phone] MCV 87.7 80.0 - 97.6 fL [facility] Comment:Testing performed by : [address] [phone] MCH 29.2 26.7 - 33.7 pg [facility] Comment:Testing performed by : [facility], [address] [place] [address] MCHC 33.3 32.7 - 35.5 g/dL [facility] Comment:Testing performed by : [facility], [address] [place], [place] [phone] RDW CV 14.3 11.8 - 14.6 % [facility] Comment:Testing performed by : [address] [address] NRBC abs 0.00 0.00 - 0.01 K/cumm [facility] Comment:Testing performed by : [facility], [address] [place] [phone] Blood 06/24/2021 9:40 AM CDT 06/24/2021 9:41 AM CDT us Gautam Cope MD LAB BLOOD ORDERABLES Final Resul t [facility] Department [place] [address] * Lactate dehydrogenase (LD) (06/24/2021 9:40 AM CDT) Lactate dehydrogenase (LDH) 173 100 - 250 Units/L [facility] Comment:Testing performed by : [facility], [address] [facility] [address] Blood 06/24/2021 9:40 AM CDT 06/24/2021 9:41 AM CDT us Gautam Cope MD LAB BLOOD ORDERABLES Final Resul t [facility] Department of Laboratories [place], [place] [address] documented in this encounter Visit Diagnoses Diagnosis Prostate cancer (HCC)- Primary Malignant neoplasm of prostate documented in this encounter Orders Appointment Requests Count Last Ordered Date Fi rst Ordered Date ONCBCN CLINIC APPOINTMENT REQUEST 1 022 ONCBCN INJECTION APPOINTMENT REQUEST 1 06/10 ONCBCN LAB APPOINTMENT 1 06/24/2021 documented in this encounter Care Teams Marine Steam Fitter Relationship Specialty Start Date End Date Kraig Ching MD [address] [place] [address] PCP - General 07/10/16 Gautam Cope MD [address] [facility] [address] [place] [address] Medical Oncologist/Geographic Area Intelligence Officer Medical Oncology 08/18/18 Tramaine Roe MD [address] [facility] [address] [place] [address] Referring Physician Urology 08/18/18 Sukhwinder Uribe MD [address] [place] [address] Consulting Physician Urology 08/18/18 Shay Guillermo MD [address] [facility] [address] [place] [address] Referring Physician Urology 08/18/18 Marsha Landis, RN Registered Nurse 11/17/18 documented as of this encounter
--- OUTSIDE RECORDS SUMMARY | 2024-03-31 04:58 | XMS_ITS | Encounter Summary ---
Author Organization [facility] Address [address] [place] [address] Care Team Providers Care Cashier And Waiter/Waitress Name Role Phone Kraig Ching MD Primary Care Provider [phone] Gautam Cope MD Unavailable Tramaine Roe MD Unavailable [phone] Sukhwinder Uribe MD Unavailable [phone] Shay Guillermo MD Unavailable [phone] Marsha Landis RN Unavailable Unavailab le Encounter Details Date Type Department Care Team (Late st Contact Info) Description 09/26/2020 5:15 PM CDT Lab [address] [address] Social History Tobacco Use Types [...] on file 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 Minimize further functional decline 2. Maximize quality of life 3. Control pain Strategies: - Activity/exercise program recommendation - Conservative stepwise pain medicine strategy with multi-disciplinary approach - Recommend healthy lifestyle strategies and compensatory methods as needed documented as of this encounter Visit Diagnoses Not on filedocumented in this encounter Care Teams Cashier And Waiter/Waitress Relationship Specialty Start Date End Date Kraig Ching MD [address] [facility] [address] [place] [address] PCP - General 07/10/16 Gautam Cope MD [address] [facility] [address] [place] [address] Medical Oncologist/Wall Scraper Medical Oncology 08/18/18 Tramaine Roe MD [address] [facility] [address] [place] [address] Referring Physician Urology 08/18/18 Sukhwinder Uribe MD [address] [facility] [address] [place] [address] Consulting Physician Urology 08/18/18 Shay Guillermo MD [address] [facility] [address] [place] [address] Referring Physician Urology 08/18/18 Marsha Landis, RN Registered Nurse 11/17/18 documented as of this encounter
--- OUTSIDE RECORDS SUMMARY | 2024-03-31 04:58 | XMS_ITS | Encounter Summary ---
Author Organization [facility] Address [address] [place] [address] Phone Care Team Providers Care Video Game Animator Name Role Phone Kraig Ching MD Primary Care Provider [phone] Gautam Cope MD Unavailable Tramaine Roe MD Unavailable Sukhwinder Uribe MD Unavailable [phone] Shay Guillermo MD Unavailable [phone] Marsha Landis RN Unavailable Unavailab le Encounter Details Date Type Department Care Team (Late st Contact Info) Description 03/31/2021 Orders Only [facility] Oncology [address] [facility] Advanced Medicine 7th [place] [address] [place] [phone] Muna Saleem RN Prostate cancer (CMS/HCC) (HCC) [...] on file 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 Author ZAK General Goal - Patient is knowledgeable about condition when worsening and how to respond ACO Care Management No change(09/06 4:37 PM CDT) Ilene Yaadv RN Note: Problem: Knowledge deficit related to [...] Chronic Care Management No change(03/23 1:47 PM INSTRUMENT TESTER) No Ingrid Oden, RN Note: Problem: Chronic Pain Goals: 1. Minimize further functional decline 2. Maximize quality of life 3. Control pain Strategies: - Activity/exercise program recommendation - Conservative stepwise pain medicine strategy with multi-disciplinary approach - Recommend healthy lifestyle strategies and compensatory methods as needed documented as of this encounter Results * (ABNORMAL) Hemoglobin A1c (04/01/2021 9:38 AM INSTRUMENT TESTER) Hgb A1C 10.6(H) 4.0 - 5.6 % [facility] Estimated Average Glucose 258 mg/dL [facility] Comment: The ADA recommends reporting an estimated Average Glucose (eAG) with all Hemoglobin A1c results using the equation derived from a study of 507 normal and diabetic adults. ??Minority populations were underrepresented and children were not included. ?? (Diabetes Care 2020; 43(S1): S66-S76). ??The eAG is not equivalent to a fasting glucose. Blood 04/01/2021 9:38 AM INSTRUMENT TESTER 04/01/2021 9:51 AM INSTRUMENT TESTER us Gautam Cope MD LAB BLOOD ORDERABLES Final Resul t [facility] One [facility] Department [place] [address] documented in this encounter Visit Diagnoses Diagnosis Prostate cancer (HCC)- Primary Malignant neoplasm of prostate documented in this encounter Care Teams Video Game Animator Relationship Specialty Start Date End Date Kraig Ching MD [address] [facility] [address] [place] [address] PCP - General 07/10/16 Gautam Cope MD [address] [facility] [address] [place] [address] Medical Oncologist/Physical Therapy Attendant Medical Oncology 08/18/18 Tramaine Roe MD [address] [facility] [address] [place] [address] Referring Physician Urology 08/18/18 Sukhwinder Uribe MD [address] [facility] [address] [place] [address] Consulting Physician Urology 08/18/18 Shay Guillermo MD [address] [facility] [address] [place] [address] Referring Physician Urology 08/18/18 Marsha Landis RN Registered Nurse 11/17/18 documented as of this encounter
--- OUTSIDE RECORDS SUMMARY | 2024-03-31 04:58 | XMS_ITS | Encounter Summary ---
Author Organization [facility] Address [address] [facility] [address] [place] [address] Care Team Providers Care Automatic Oven Operator Name Role Phone Kraig Ching MD Primary Care Provider Gautam Cope MD Unavailable Tramaine Roe MD Unavailable [phone] Sukhwinder Uribe MD Unavailable [phone] Shay Guillermo MD Unavailable [phone] Marsha Landis RN Unavailable Unavailab le Reason for Visit * Reason Onset Date Comments Med Refill 05/13/2021 Encounter Details Date Type Department Care Team (Late st Contact Info) Description 05/13/2021 Telephone [facility] [address] [facility] [address] [place] [address] Kraig hCing MD [address] [facility] [address] [place], [place] [id number] Med Refill Social History Tobacco Use Types Packs/Day Years [...] on file 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 ELEVATED GUARD Gender Identity Not on file Sexual Orientation Not on file documented as of this encounter Miscellaneous Notes * Telephone Encounter - Kellen Patten MA - 05/26/2021 5:41 PM CST Spoke with PT sent refill for pin needles ATED GUARD * Telephone Encounter - Kraig Ching MD - 05/20/2021 9:52 AM CST Ok for same directions for Basaglar insulin. ATED GUARD * Telephone Encounter - Kellen Patten MA - 05/16/2021 10:55 AM CST Please change insulin ATED GUARD * Telephone Encounter - Hailey Perez - 05/13/2021 12:06 PM CST Medication Question/Clarification Medication Name(s): insulin aspart (NovoLOG) 100 unit/mL (3 mL What is the question or clarification needed? Patient called stating that his insurance said that they will cover a generic brand only . If needed, Pharmacy(s) medication(s) should be sent to: Pharmacy on file. Caller???s Callback #: [phone] Additional Comments: none Does message need to be routed? Yes-Action Needed ATED GUARD documented in this encounter Plan of Treatment [...] Chronic Care Management No change(03/23 1:47 PM ELEVATED GUARD) No Ingrid Oden, RN Note: Problem: Chronic Pain Goals: 1. Minimize further functional decline 2. Maximize quality of life 3. Control pain Strategies: - Activity/exercise program recommendation - Conservative stepwise pain medicine strategy with multi-disciplinary approach - Recommend healthy lifestyle strategies and compensatory methods as needed documented as of this encounter Visit Diagnoses Not on filedocumented in this encounter Care Teams Automatic Oven Operator Relationship Specialty Start Date End Date Kraig Ching MD [address] [facility] [address] [place] [address] PCP - General 07/10/16 Gautam Cope MD [address] [facility] [address] [place] [address] Medical Oncologist/Director Of Strategic Partnerships Medical Oncology 08/18/18 Tramaine Roe MD [address] [facility] [address] [place] [address] Referring Physician Urology 08/18/18 Sukhwinder Uribe MD [address] [facility] [address] [place] [address] Consulting Physician Urology 08/18/18 Shay Guillermo MD [address] [facility] [address] [place] [address] Referring Physician Urology 08/18/18 Marsha Landis, RN Registered Nurse 11/17/18 documented as of this encounter
--- OUTSIDE RECORDS SUMMARY | 2024-03-31 04:58 | XMS_ITS | Encounter Summary ---
Author Organization [facility] Address [address] [facility] [address] [place] [address] Care Team Providers Care Basting Machine Operator Name Role Phone Kraig Ching MD Primary Care Provider Gautam Cope MD Unavailable Tramaine Roe MD Unavailable [phone] Sukhwinder Uribe MD Unavailable [phone] Shay Guillermo MD Unavailable [phone] Marsha Landis RN Unavailable Unavailab le Reason for Visit * Reason Onset Date Comments Medication Request 02/21/2021 Encounter Details Date Type Department Care Team (Late st Contact Info) Description 02/21/2021 Telephone [facility] [address] [facility] [address] [place] [address] Kraig Ching MD [address] [facility] [address] [place] [address] Medication Request Social History Tobacco [...] on file 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 The patient needs another medication that is more affordable than Januvia 25 mg tablet The patient is running out of medication today. Caller???s Call back #: [phone] Does message need to be routed? Yes-Action Needed LINING BINDER * Telephone Encounter - Rosy Mcmanus MA - 02/24/2021 9:06 AM FLAP LINING BINDER Fwd to [facility] LINING BINDER * Telephone Encounter - Nuria Zamorano - 02/21/2021 4:31 PM CST Medication Question/Clarification Medication Name(s): Januvia 25 mg tablet What is the question or clarification needed? Patient's , on HIPPA, she is calling to see if there is another medication that can be called in. Currently they do not have any prescription coverage and have to pay out of pocket for this medication. If needed, Pharmacy(s) medication(s) should be sent to: [facility] Caller???s Callback #: [phone] Additional Comments: NA Does message need to be routed? Yes-Action Needed LINING BINDER documented in this encounter Plan of Treatment [...] Chronic Care Management No change(03/23 1:47 PM FLAP LINING BINDER) No Ingrid Oden, RN Note: Problem: Chronic Pain Goals: 1. Minimize further functional decline 2. Maximize quality of life 3. Control pain Strategies: - Activity/exercise program recommendation - Conservative stepwise pain medicine strategy with multi-disciplinary approach - Recommend healthy lifestyle strategies and compensatory methods as needed documented as of this encounter Visit Diagnoses Not on filedocumented in this encounter Care Teams Basting Machine Operator Relationship Specialty Start Date End Date Kraig Ching MD [address] [place] [address] PCP - General 07/10/16 Gautam Cope MD [address] [place] [address] Medical Oncologist/Subassembly Supervisor Medical Oncology 08/18/18 Tramaine Roe MD [address] [place] [address] Referring Physician Urology 08/18/18 Sukhwinder Uribe MD [address] [place] [address] Consulting Physician Urology 08/18/18 Shay Guillermo MD [address] [place] [address] Referring Physician Urology 08/18/18 Marsha Landis, RN Registered Nurse 11/17/18 documented as of this encounter
--- OUTSIDE RECORDS SUMMARY | 2024-03-31 04:58 | XMS_ITS | Encounter Summary ---
Author Organization [facility] [employer] of [facility] Address [address] [place] [address] Phone Care Team Providers Care Service Correspondent Name Role Phone Kraig Ching MD Primary Care Provider Gautam Cope MD Unavailable Tramaine Roe MD Unavailable [phone] Sukhwinder Uribe MD Unavailable Shay Guillermo MD Unavailable [phone] Marsha Landis RN Unavailable Unavailab le Reason for Visit * Reason Comments Injections Eligard * Episode Based Medications (Routine) - Authorized Specialty Diagnoses / Procedures Referred By Contac t Referred To Contact Oncology Diagnoses Prostate cancer (HCC) Procedures [place] LEUPROLIDE ACETATE SUSPNSION Leuprolide Every 3 Months - Prostate Gautam Cope MD [address] [facility] [address] [place] [address] Phone: tel: fax: [facility] - Infusion [address] [facility] Floor 5 [place] [address] Referral ID Status Reason Start Date Expiration Date V isits Requested Visits Authorized [id number] Authorized 09/06/2018 07/11/2024 1 50 Encounter Details Date Type Department Care Team (Late st Contact Info) Description 01/07/2021 2:15 PM CDT Infusion [facility] 7th [place] [address] Prostate cancer (CMS/HCC) (HCC) (Primary Dx) Social [...] on file 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 male who presents for the following injection: Eligard 22.5 mg. Nursing Assessment Nursing Assessment Appetite:: Good Diarrhea:: No Constipation:: No Last BM Date: 01/07/21 Existing Patients: Any falls since your last visit? : No New Patients: Any falls since your last visit? : N/A Fatigue:: Occassional Mouth Sores:: No Nausea/Vomiting:: No Pain:: No Peripheral Neuropathy: : No Pt states has potential to be ? : N/A Shortness of Breath?: No Lungs auscultated PRN:: No Pt is on oxygen? : No Skin Condition/Temp: Warm, Dry Oral Mucosa Grade: Normal (0) Abdomen: Soft Swelling:: No Additional Notes: Right Lower Abdomen BP: 158/72 Temp: 36.3 ??C (97.4 ??F) Temp src: Transdermal Pulse: 73 Resp: 18 SpO2: 96 % Weight: 93.9 kg (207 lb) Patient: met treatment parameters David Wei tolerated injection well Additional Notes: AVS printed for patient. Discharge Plan Discharge instructions given to patient. [...] Chronic Care Management No change(03/23 1:47 PM MANUFACTURING PLANT MANAGER) No Ingrid Oden, RN Note: Problem: [...] 22.5 mg 22.5 mg, subcutaneous, Once, On Wed01/07/21 at 1445, For 1 dose, For subcutaneous use only. Allow product to reach room temperature before using.Indications:Prosta te cancer (HCC) Given 01/07/2021 2:22 PM CDT 22.5 mg Right Lower Abdomen documented in this encounter Orders Nursing Count Last Ordered Date First Orde red Date ONCBCN TREATMENT PARAMETERS 2 1 01/07/2021 Appointment Requests Count Last Ordered Date Fi rst Ordered Date ONCBCN INJECTION APPOINTMENT REQUEST 1 12/12 documented in this encounter Care Teams Service Correspondent Relationship Specialty Start Date End Date Kraig Ching MD [address] [place] [address] PCP - General 07/10/16 Gautam Cope MD [address] [place] [address] Medical Oncologist/Heavy Equipment Service Technician Medical Oncology 08/18/18 Tramaine Roe MD [address] [place] [address] Referring Physician Urology 08/18/18 Sukhwinder Uribe MD [address] [facility] [address] [place] [address] Consulting Physician Urology 08/18/18 Shay Guillermo MD [address] [facility] [address] [place] [address] Referring Physician Urology 08/18/18 Marsha Landis, RN Registered Nurse 11/17/18 documented as of this encounter
--- OUTSIDE RECORDS SUMMARY | 2024-03-31 04:58 | XMS_ITS | Encounter Summary ---
Author Organization [facility] of [facility] Address [address] [place] [address] Phone Care Team Providers Care Honing Job Setter Name Role Phone Kraig Ching MD Primary Care Provider Gautam Cope MD Unavailable Tramaine Roe MD Unavailable [phone] Sukhwinder Uribe MD Unavailable [phone] Shay Guillermo MD Unavailable [phone] Marsha Landis RN Unavailable Unavailab le Encounter Details Date Type Department Care Team (Late st Contact Info) Description 10/15/2020 10:30 AM CDT Lab [facility] Oncology [address] [facility] 7th [place] [address] [place] [address] Prostate cancer (CMS/HCC) Social History Tobacco Use Types Packs/Day [...] on file 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 Minimize further functional decline 2. Maximize quality of life 3. Control pain Strategies: - Activity/exercise program recommendation - Conservative stepwise pain medicine strategy with multi-disciplinary approach - Recommend healthy lifestyle strategies and compensatory methods as needed documented as of this encounter Procedures Procedure Name Priority Date/Time Associated Diagnosis Comments DIFFERENTIAL AUTO Routine 10/15/2020 10: 32 AM CDT Prostate cancer ([facility]/HCC) CBC WITH AUTO DIFFERENTIAL Routine 10/15/2020 10:32 AM CDT Prostate cancer ([facility]/HCC) VITAMIN D 25 HYDROXY Routine 10/15/2020 10:32 AM CDT Prostate cancer ([facility]/HCC) PSA DIAGNOSTIC Routine 10/15/2020 10:32 AM CDT Prostate cancer ([facility]/HCC) LACTATE DEHYDROGENASE Routine 10/15/2020 10:32 AM CDT Prostate cancer ([facility]/HCC) COMPREHENSIVE METABOLIC PANEL STAT 10/15/2020 10:32 AM CDT Prostate cancer ([facility]/HCC) documented in this encounter Results * (ABNORMAL) Differential, auto (10/15/2020 10:32 AM CDT) Neutrophil abs 8.1(H) 1.8 - 6.6 K/cumm [facility] Comment:Testing performed by : [facility], [address] [place] [address] Lymphocyte abs 1.8 1.2 - 3.3 K/cumm [facility] Comment:Testing performed by : [facility], [address] [place] [phone] Monocyte abs 0.9 0.2 - 1.2 K/cumm [facility] Comment:Testing performed by : [facility], [address] [place] [address] Eosinophil abs 0.2 0.0 - 0.5 K/cumm [facility] Comment:Testing performed by : [facility], [address] [place] [address] Basophil abs 0.1 0.0 - 0.2 K/cumm [facility] Comment:Testing performed by : [facility], [address] [place] [phone] Neutrophil pct 73.1 % [facility] Comment: Interpretive Data Percent cell count reference ranges are not reported, since discordance with absolute values may lead to misinterpretation of CBC data. Current Interpretive Data was last revised on 2017. Testing performed by: [facility], [address] [place] [phone] Lymphocyte pct 16.7 % [facility] Comment: Interpretive Data Percent cell count reference ranges are not reported, since discordance with absolute values may lead to misinterpretation of CBC data. Current Interpretive Data was last revised on 2017. Testing performed by: [facility], [address] [place] [phone] Monocyte pct 7.9 % [facility] Comment:Testing performed by : [facility], [address] [place] [address] Eosinophil pct 1.6 % [facility] Comment:Testing performed by : [address] [address] Basophil pct 0.7 % [facility] Comment:Testing performed by : [facility], [address] [place] [phone] Blood specimen (specimen) 10/15/2020 10:32 AM CDT 10/15/2020 10:34 AM CDT us Gautam Cope MD LAB BLOOD ORDERABLES Final Resul t [facility] Department [place] [address] * (ABNORMAL) Vitamin D 25 hydroxy (10/15/2020 10:32 AM CDT) Pathologist [facility] Vitamin D 25-OH 23(L) 30 - 80 ng/mL [facility] Blood specimen (specimen) 10/15/2020 10:32 AM CDT 10/15/2020 10:53 AM CDT Gautam Cope MD LAB BLOOD ORDERABLES Final Resul t Performing Organization Address [facility] de Phone Number [facility] Department [place] [address] * Lactate dehydrogenase (LD) (10/15/2020 10:32 AM CDT) [facility] Lactate dehydrogenase (LDH) 161 100 - 250 Units/L [facility] Comment:Testing performed by : [facility], [address] [place] [phone] Blood specimen (specimen) 10/15/2020 10:32 AM CDT 10/15/2020 10:34 AM CDT Gautam Cope MD LAB BLOOD ORDERABLES Final Resul t Performing Organization Address [facility] de Phone Number [facility] Department [place] [address] * (ABNORMAL) CBC with auto differential (10/15/2020 10:32 AM CDT) [facility] WBC 11.0(H) 3.8 - 9.8 K/cumm [facility] Comment:Testing performed by : [facility], [address] [place] [address] Hgb 12.6(L) 13.8 - 17.2 g/dL [facility] Comment:Testing performed by : [facility], [address] [place] [address] Hct 36.8(L) 40.7 - 50.3 % [facility] Comment:Testing performed by : [facility], [address] [place] [phone] Plt 365 140 - 440 K/cumm [facility] Comment:Testing performed by : [facility], [address] [place] [address] MPV 7.2 6.8 - 10.4 fL [facility] Comment:Testing performed by : [facility], [address] [place], [place] [phone] RBC 4.24(L) 4.50 - 5.70 M/cumm [facility] Comment:Testing performed by : [facility], [address] [place], [place] [phone] MCV 86.9 80.0 - 97.6 fL [facility] Comment:Testing performed by : [facility], [address] [place], [place] [phone] MCH 29.7 26.7 - 33.7 pg [facility] Comment:Testing performed by : [place] [phone] MCHC 34.1 32.7 - 35.5 g/dL [facility] Comment:Testing performed by : [facility], [address] [place] [address] RDW CV 14.5 11.8 - 14.6 % [facility] Comment:Testing performed by : [facility], [address] [place] [address] NRBC abs 0.00 0.00 - 0.01 K/cumm [facility] Comment:Testing performed by : [address] [address] Blood specimen (specimen) 10/15/2020 10:32 AM CDT 10/15/2020 10:34 AM CDT us Gautam Cope MD LAB BLOOD ORDERABLES Final Resul t [facility] Department [place] [address] * (ABNORMAL) Comprehensive metabolic panel (10/15/2020 10:32 AM CDT) Sodium 138 135 - 145 mmol/L [facility] Comment:Testing performed by : [facility], [address] [place] [address] Potassium, pl 4.2 3.3 - 4.9 mmol/L [facility] Comment:Testing performed by : [facility], [address] [place] [address] Chloride 102 97 - 110 mmol/L [facility] Comment:Testing performed by : [facility], [address] [place] [address] CO2 29 22 - 32 mmol/L [facility] Comment:Testing performed by : [facility], [address] [place] [address] Anion gap 7 2 - 15 mmol/L [facility] Comment:Testing performed by : [facility], [address] [place] [address] BUN 35(H) 8 - 25 mg/dL [facility] Comment:Testing performed by : [address] [address] Creatinine 1.48(H) 0.80 - 1.30 mg/dL [facility] Comment:Testing performed by : [facility], [address] [place] [address] Glucose 187 70 - 199 mg/dL [facility] Comment: [...] was last revised 2017. Testing performed by: [facility], [address] [place] [address] Calcium 9.6 8.5 - 10.3 mg/dL [facility] Comment:Testing performed by : [facility], [address] [place] [address] Bilirubin, total 0.6 0.1 - 1.2 mg/dL [facility] Comment:Testing performed by : [facility], [address] [place] [address] Protein, pl 7.1 6.5 - 8.5 g/dL [facility] Comment:Testing performed by : [facility], [address] [place] [phone] Albumin 4.4 3.5 - 5.0 g/dL [facility] Comment:Testing performed by : [facility], [address] [place] [phone] Alk phos 115 40 - 130 Units/L [facility] Comment:Testing performed by : [facility], [address] [place] [phone] ALT 10 7 - 55 Units/L [facility] Comment:Testing performed by : [facility], [address] [place] [phone] AST 10 10 - 50 Units/L [facility] Comment:Testing performed by : [facility], [address] [place] [phone] Blood specimen (specimen) 10/15/2020 10:32 AM CDT 10/15/2020 10:34 AM CDT us Gautam Cope MD LAB BLOOD ORDERABLES Final Resul t [facility] Department [place] [address] * PSA diagnostic (10/15/2020 10:32 AM CDT) PSA-Total <0.10 <=6.20 ng/mL [facility] Comment: Interpretive Data ?AGE ? SEX ?REFERENCE INTERVAL 0 minutes-150 years ?Female ?None 0 minutes-49 years ? Male ?None ? 50-59 years ? Male ?0-3.90 ? 60-69 years ? Male ?0-5.40 ? 70-79 years ? Male ?0-6.20 ? 80-150 years ?Male ?0-6.20 Current interpretive data last revised 2017. Blood specimen (specimen) 10/15/2020 10:32 AM CDT 10/15/2020 10:53 AM CDT us Gautam Cope MD LAB BLOOD ORDERABLES Final Resul t Performing Organization Address City/State/[facility] Co ar Phone Number [facility] Department [place] [address] documented in this encounter Visit Diagnoses Diagnosis Prostate cancer (HCC) Malignant neoplasm of prostate documented in this encounter Orders Appointment Requests Count Last Ordered Date Fi rst Ordered Date ONCBCN LAB APPOINTMENT 1 10/15/2020 documented in this encounter Care Teams Honing Job Setter Relationship Specialty Start Date End Date Kraig Ching MD [address] [place] [address] PCP - General 07/10/16 Gautam Cope MD [address] [place] [address] Medical Oncologist/Crust Sorter Medical Oncology 08/18/18 Tramaine Roe MD [address] [place] [address] Referring Physician Urology 08/18/18 Sukhwinder Uribe MD [address] [place] [address] Consulting Physician Urology 08/18/18 Shay Guillermo MD [address] [facility] [address] [place] [address] Referring Physician Urology 08/18/18 Marsha Landis, RN Registered Nurse 11/17/18 documented as of this encounter
--- OUTSIDE RECORDS SUMMARY | 2024-03-31 04:58 | XMS_ITS | Encounter Summary ---
Author Organization [facility] [employer] [facility] Address [address] [place] [address] Phone Care Team Providers Care Mobile Marketing Manager Name Role Phone Kraig Ching MD Primary Care Provider Gautam Cope MD Unavailable Tramaine Roe MD Unavailable [phone] Sukhwinder Uribe MD Unavailable [phone] Shay Guillermo MD Unavailable [phone] Marsha Landis RN Unavailable Unavailab le Reason for Visit * Reason Comments Injections eligard * Episode Based Medications (Routine) - Authorized Specialty Diagnoses / Procedures Referred By Contac t Referred To Contact Oncology Diagnoses Prostate cancer (HCC) Procedures [place] LEUPROLIDE ACETATE SUSPNSION Leuprolide Every 3 Months - Prostate Gautam Cope MD [address] [facility] [address] [place] [address] Phone: tel: fax: [facility] - Infusion [address] [facility] Floor 5 [place] [address] Referral ID Status Reason Start Date Expiration Date V isits Requested Visits Authorized [id number] Authorized 09/06/2018 07/11/2024 1 50 Encounter Details Date Type Department Care Team (Late st Contact Info) Description 04/01/2021 11:00 AM FOOD SERVICE MANAGER Infusion 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 male who presents for the following injection: eligard 22.5 Nursing Assessment Nursing Assessment Appetite:: Good Diarrhea:: No Constipation:: No Last BM Date: 04/01/21 Existing Patients: Any falls since your last visit? : No New Patients: Any falls since your last visit? : No Fatigue:: None Mouth Sores:: No Nausea/Vomiting:: No Pain:: No Peripheral Neuropathy: : No Pt states has potential to be ? : No Shortness of Breath?: No Lungs auscultated PRN:: No Pt is on oxygen? : No Skin Condition/Temp: Warm,Dry Oral Mucosa Grade: Normal (0) Abdomen: Soft,Bowel sounds present x4 Swelling:: No Additional Notes: BP: 165/88 Temp: 36.1 ??C (97 ??F) Temp src: Transdermal Pulse: 80 Resp: 18 SpO2: 96 % Weight: 95.5 kg (210 lb 9.6 oz) (pt refused to remove shoes) Patient: met treatment parameters David Wei tolerated injection well Additional Notes: Discharge Plan Discharge instructions given to patient. Discharge Mode: Ambulatory Accompanied by: Self Discharged To: Home SERVICE MANAGER documented in this encounter Plan of [...] Chronic Care Management No change(03/23 1:47 PM FOOD SERVICE MANAGER) No Ingrid Oden, RN Note: Problem: [...] 22.5 mg 22.5 mg, subcutaneous, Once, On Wed04/01/21 at 1045, For 1 dose, For subcutaneous use only. Allow product to reach room temperature before using.Indications:Prosta te cancer (HCC) Given 04/01/2021 10:29 AM FOOD SERVICE MANAGER 22.5 mg Left Lower Abdomen documented in this encounter Orders Nursing Count Last Ordered Date First Orde red Date ONCBCN TREATMENT PARAMETERS 2 1 04/01/2021 Appointment Requests Count Last Ordered Date Fi rst Ordered Date ONCBCN INJECTION APPOINTMENT REQUEST 1 03/13 documented in this encounter Care Teams Mobile Marketing Manager Relationship Specialty Start Date End Date Kraig Ching MD [address] [facility] [address] [place] [address] PCP - General 07/10/16 Gautam Cope MD [address] [facility] [address] [place] [address] Medical Oncologist/[employer] Medical Oncology 08/18/18 Tramaine Roe MD [address] [facility] [address] [place] [address] Referring Physician Urology 08/18/18 Sukhwinder Uribe MD [address] [facility] [address] [place] [address] Consulting Physician Urology 08/18/18 Shay Guillermo MD [address] [facility] [address] [place] [address] Referring Physician Urology 08/18/18 Marsha Landis RN Registered Nurse 11/17/18 documented as of this encounter
--- OUTSIDE RECORDS SUMMARY | 2024-03-31 04:58 | XMS_ITS | Encounter Summary ---
Author Organization [facility] Address [address] [facility] [address] [place] [address] Care Team Providers Care Hide Worker Name Role Phone Kraig Ching MD Primary Care Provider [phone] Gautam Cope MD Unavailable Tramaine Roe MD Unavailable [phone] Sukhwinder Uribe MD Unavailable [phone] Shay Guillermo MD Unavailable [phone] Marsha Landis RN Unavailable Unavailab le Encounter Details Date Type Department Care Team (Late st Contact Info) Description 05/26/2021 Telephone [facility] [address] 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 Gender Identity Not on file Sexual Orientation Not on file documented as of this encounter Ordered Prescriptions Prescription Sig Dispense Quantity Refills Last Filled Start Date End Date pen needle, diabetic (BD Ultra-Fine Short Pen Needle) 31 gauge x 5/16 needle Use as directed to inject insulin once daily.Use inject insulin Three times a day also PT has two different insulin that he use 400 each 11 05/26/2021 3 documented in this encounter Miscellaneous Notes * Telephone Encounter - Kellen Patten MA - 05/26/2021 5:35 PM CST Refill sent Pt Pin needle E RECRUITER documented in this encounter Plan of Treatment [...] to monitor diabetes and kidney status, etc. [facility] Chronic Pain Care Plan Chronic Care Management No change(03/23 1:47 PM TRADE RECRUITER) No Ingrid Oden RN Note: Problem: Chronic [...] Discontinue Reason Start Date End Da te pen needle, diabetic (BD Ultra-Fine Short Pen Needle) 31 gauge x 5/16 needle Use as directed to inject insulin once daily Reorder 05/19/2021 05/26/2021 documented as of this encounter Care Teams Hide Worker Relationship Specialty Start Date End Date Kraig Ching MD [address] [facility] [address] [place] [address] PCP - General 07/10/16 Gautam Cope MD [address] [facility] [address] [place] [address] Medical Oncologist/Midwife Practitioner Medical Oncology 08/18/18 Tramaine Roe MD [address] [facility] [address] [place] [address] Referring Physician Urology 08/18/18 Sukhwinder Uribe MD [address] [facility] [address] [place] [address] Consulting Physician Urology 08/18/18 Shay Guillermo MD [address] [facility] [address] [place] [address] Referring Physician Urology 08/18/18 Marsha Landis, RN Registered Nurse 11/17/18 documented as of this encounter
--- OUTSIDE RECORDS SUMMARY | 2024-03-31 04:58 | XMS_ITS | Encounter Summary ---
Author Organization [facility] Healthcare Address [address] [place] [address] Care Team Providers Care Training Development Manager Name Role Phone Kraig Ching MD Primary Care Provider [phone] Gautam Cope MD Unavailable Tramaine Roe MD Unavailable [phone] Skuhwinder Uribe MD Unavailable [phone] Shay Guillermo MD Unavailable [phone] Marsha Landis RN Unavailable Unavailab le Reason for Referral * Diagnostic Imaging (Routine) - Closed Specialty Diagnoses / Procedures Referred By Saleem narvaez Referred To Contact Diagnoses Prostate cancer (HCC) Procedures NM bone scan whole body Gautam Cope MD [address] [address] Phone: tel: fax: [address] [address] Referral ID Status Reason Start Date Expiration Date Visits Re quested Visits Authorized [id number] Closed 01/01/2021 01/31/2022 2 2 [facility] Reason for Visit * Diagnostic Imaging (Routine) - Closed Specialty Diagnoses / Procedures Referred By Saleem narvaez Referred To Contact Diagnoses Prostate cancer (HCC) Procedures NM bone scan whole body Gautam Cope MD [address] [facility] [address] [place] [address] Phone: tel: fax: [facility] 1 [facility] [place] [address] Referral ID Status Reason Start Date Expiration Date Visits Re quested Visits Authorized [id number] Closed 01/01/2021 01/31/2022 2 2 Encounter Details Date Type Department Care Team (Latest Contact Info) Description 03/25/2021 10:22 AM TRAPEZE ARTIST - 03/25/2021 11:59 PM TRAPEZE ARTIST Hospital Encounter [facility] [address] [place] [address] Gautam Cope MD [address] [facility] [address] [place] [address] Prostate cancer (CMS/HCC) (HCC) Discharge Disposition: Discharge [...] on file 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 TRAPEZE ARTIST Gender Identity Not on file Sexual [...] with chronic kidney disease stage III ([facility]) Take 1 tablet (10 mg total) by mouth nightly Pt needs to call MD for f/u appt [phone]. 90 tablet 12/23/2020 2 aspirin 81 mg [...] 30-59 ml/min ([facility]) TAKE 1 TABLET(12.5 MG) BY MOUTH TWICE [...] of insulin (FORMERLY [facility]) TAKE 1 TABLET BY MOUTH DAILY 30 [...] monitor diabetes and kidney status, etc. [facility] Chronic Pain Care Plan Chronic Care Management No change(03/23 1:47 PM TRAPEZE ARTIST) No Ingrid Oden RN Note: Problem: Chronic Pain Goals: 1. Minimize further functional decline 2. Maximize quality of life 3. Control pain Strategies: - Activity/exercise program recommendation - Conservative stepwise pain medicine strategy with multi-disciplinary approach - Recommend healthy lifestyle strategies and compensatory methods as needed documented as of this encounter Procedures Procedure Name Priority Date/Time Associated Diagnosis Comments NM BONE IMAGING WHOLE BODY Schedule Routine, Read Routine (OP Routine) 03/25/2021 1:51 PM TRAPEZE ARTIST Prostate cancer (CMS/HCC) (HCC) documented in this encounter Results * NM bone scan whole body (03/25/2021 1:51 PM TRAPEZE ARTIST) Anatomical Region Laterality Modality N/A Digital Radiogra phy 03/25/2021 2:25 PM TRAPEZE ARTIST Impressions 03/25/2021 4:36 PM TRAPEZE ARTIST 1. Decreased conspicuity of the L2 osseous metastasis compared to prior scintigraphic and CT exams, suggesting healing metastasis. ??No suspicious new osseous activity to suggest progressive metastasis. 2. Suspected progressive bilateral L4 facet arthropathy. Dictated by: Omar Fernandez MD The radiology attending physician has personally reviewed this study, and had reviewed and/or edited this written report and agrees with it. Electronically signed by: Ar Hopkins MD, Ph.D Narrative 03/25/2021 4:36 PM TRAPEZE ARTIST EXAMINATION: ??BONE SCINTIGRAPHY (WHOLE-BODY) DATE OF STUDY: ?? 03/25/2021 RADIOPHARMACEUTICAL: ?? 23.1 mCi Tc-99m MDP i.v. HISTORY: ??80-year-old man with prostate cancer (initially diagnosed in October 1999), status post radical prostatectomy, adjuvant radiation therapy (November 1999), and long-term Lupron, abiraterone, and prednisone since 2019, with corresponding decrease in PSA (currently undetectable, with PSA <0.1 on 01/07/2021). FINDINGS: ??Delayed whole-body scintigrams were obtained. ?? Prior nuclear medicine studies used for comparison: 08/15/2019 and 08/10/2018 whole-body bone scintigraphy Other radiographic comparisons: 03/25/2021, 08/15/2019, and 09/13/2018 CT chest abdomen pelvis without contrast There is a focus of moderate to intense activity within the right lateral aspect of the L1-L2 disc space, which appears decrease in conspicuity from prior exams, and corresponds to focal degenerative disc disease, with decreased conspicuity in the sclerotic L2 vertebral body lesion seen on [address] exams, compatible with healing superimposed osseous metastasis. There is increased uptake demonstrated at the posterior L4 vertebral body level which appears to span across the full width of the vertebral body, which is favored to correspond to progressive sclerotic changes in the bilateral posterior elements at this level on corresponding CT, likely related to progressive facet arthropathy. There are no other foci of suspicious osseous uptake to suggest new or progressive osseous metastasis. There is degenerative tracer activity demonstrated within both shoulders, elbows, the right wrist, and at the left sternoclavicular and 1st costomanubrial joint. Procedure Note Ar Mendoza MD PhD - 03/25/2021 EXAMINATION: BONE SCINTIGRAPHY (WHOLE-BODY) DATE OF STUDY: 03/25/2021 RADIOPHARMACEUTICAL: 23.1 mCi Tc-99m MDP i.v. HISTORY: 80-year-old man with prostate cancer (initially diagnosed in October 1999), status post radical prostatectomy, adjuvant radiation therapy (November 1999), and long-term Lupron, abiraterone, and prednisone since 2019, with corresponding decrease in PSA (currently undetectable, with PSA <0.1 on 01/07/2021). FINDINGS: Delayed whole-body scintigrams were obtained. Prior nuclear medicine studies used for comparison: 08/15/2019 and 08/10/2018 whole-body bone scintigraphy Other radiographic comparisons: 03/25/2021, 08/15/2019, and 09/13/2018 CT chest abdomen pelvis without contrast There is a focus of moderate to intense activity within the right lateral aspect of the L1-L2 disc space, which appears decrease in conspicuity from prior exams, and corresponds to focal degenerative disc disease, with decreased conspicuity in the sclerotic L2 vertebral body lesion seen on [address] exams, compatible with healing superimposed osseous metastasis. There is increased uptake demonstrated at the posterior L4 vertebral body level which appears to span across the full width of the vertebral body, which is favored to correspond to progressive sclerotic changes in the bilateral posterior elements at this level on corresponding CT, likely related to progressive facet arthropathy. There are no other foci of suspicious osseous uptake to suggest new or progressive osseous metastasis. There is degenerative tracer activity demonstrated within both shoulders, elbows, the right wrist, and at the left sternoclavicular and 1st costomanubrial joint. IMPRESSION: 1. Decreased conspicuity of the L2 osseous metastasis compared to prior scintigraphic and CT exams, suggesting healing metastasis. No suspicious new osseous activity to suggest progressive metastasis. 2. Suspected progressive bilateral L4 facet arthropathy. Dictated by: Omar Fernandez MD The radiology attending physician has personally reviewed this study, and had reviewed and/or edited this written report and agrees with it. Electronically signed by: Ar Hopkins MD, Ph.D Gautam Cope MD [facility] Final Result documented in this encounter Visit Diagnoses Diagnosis Prostate cancer (HCC) Malignant neoplasm of prostate documented in this encounter Administered Medications Inactive Administered Medications - up to 3 most recent administrations Medication Order MAR Action Action Date Dose Rate Site tc-99m medronate (MDP) injection 20 millicurie 20 millicurie, intravenous, Once in imaging, radiopharmaceutical, Starting on Wed03/25/21 at 1046, For 1 dose, Indications: Diagnostic RadiographyIndicatio ns:Diagnostic Radiography Given 03/25/2021 10:45 AM TRAPEZE ARTIST 23.08 millicuries Left Antecubital documented in this encounter Care Teams Training Development Manager Relationship Specialty Start Date End Date Kraig Ching MD [address] [facility] [address] [place] [address] PCP - General 07/10/16 Gautam Cope MD [address] [facility] [address] [place] [address] Medical Oncologist/Binder Stripper Hand Medical Oncology 08/18/18 Tramaine Roe MD [address] [facility] [address] [place] [address] Referring Physician Urology 08/18/18 Sukhwinder Uribe MD [address] [facility] [address] [place] [address] Consulting Physician Urology 08/18/18 Shay Guillermo MD [address] [facility] [address] [place] [address] Referring Physician Urology 08/18/18 Marsha Landis, RN Registered Nurse 11/17/18 documented as of this encounter
--- OUTSIDE RECORDS SUMMARY | 2024-03-31 04:58 | XMS_ITS | Encounter Summary ---
Author Organization [facility] Address [address] [place] [address] Phone Care Team Providers Care Direct Support Staff Name Role Phone Kraig Ching MD Primary Care Provider Gautam Cope MD Unavailable Tramaine Roe MD Unavailable [phone] Sukhwinder Uribe MD Unavailable [phone] Shay Guillermo MD Unavailable [phone] Marsha Landis RN Unavailable Unavailab le Reason for Visit * Episode Based Medications (Routine) - Authorized Specialty Diagnoses / Procedures Referred By Saleem narvaez Referred To Contact Oncology Diagnoses Prostate cancer (HCC) Procedures NC LEUPROLIDE ACETATE SUSPNSION Leuprolide Every 3 Months - Prostate Gautam Cope MD [address] [facility] [address] [place] [address] Phone: tel: fax: [facility] [address] [place] [address] Referral ID Status Reason Start Date Expiration Date V isits Requested Visits Authorized [id number] Authorized 09/06/2018 07/11/2024 1 50 Encounter Details Date Type Department Care Team (Late st Contact Info) Description 10/15/2020 11:15 AM CDT Office Visit [facility] Oncology [address] [place] [address] 7th [place] [address] [place] [id number] Gautam Cope MD [address] [facility] [address] [place] [address] Prostate cancer (CMS/HCC) (Primary Dx) Social History [...] on file 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 Gender Identity Not on file Sexual Orientation Not on file documented as of this encounter Last Filed Vital Signs Vital Sign Reading Time Taken Comments Blood Pressure 132/73 10/15/2020 10:51 AM CDT Pulse 86 10/15/2020 10:51 AM CDT Temperature 36.3 ??C (97.4 ??F) 10/15/2020 10:51 AM C DT Respiratory Rate 18 10/15/2020 10:51 AM CDT Oxygen Saturation 96% 10/15/2020 10:51 AM CDT Inhaled Oxygen Concentration - - Weight 94.3 kg (208 lb) 10/15/2020 10:51 AM CDT Height - - Body Mass Index 29.01 10/10/2020 11:13 AM CDT documented in this encounter Progress Notes * Gautam Cope MD - 10/15/2020 12:00 AM CDT PATIENT NAME: DAVID DREW : 1940 [place]: 10/15/2020 Mr. Kelly is a 79-year-old with metastatic prostate cancer. He was diagnosed in October 1999 with aPSA of 5.5. His biopsy showed Viviana 3 + 4 disease. He underwent a radical prostatectomy performedby Dr. Guillermo. This showed Viviana 4 + 3 disease with extracapsular extension and positive marginbut no lymph node involvement. He did undergo adjuvant radiation therapy completing all these treatments in November 1999. In June 2012, he was noted to have a rising PSA and by October 2018, his PSA wasin the double digits. An MRI scan in August 2018 suggested local recurrence despite his surgery and radiation therapy, along with a lesion at L2. We met the patient and began him on Lupron and abiraterone in October 2018. He remains on Lupron, abiraterone, and prednisone with a nice serological response.He is tolerating therapy quite well but does have hot flashes. He remains with chronic problems with lower back pain, continuing to be followed by a pain specialist, with frequent steroid injections.In fact, one done just last week. With the pain, he has been minimally active and very sedentary. We talked about trying to become more active and how this may improve some things. Other comorbidities include diabetes, chronic kidney disease, hypertension, paroxysmal atrial fibrillation, and hyperlipidemia. He has had both of his COVID vaccinations. PHYSICAL EXAMINATION: Vital Signs: Shows a male whose weight is 94.3 kg. His blood pressure is 132/73. Pulse is 86. He isafebrile. His O2 saturation 96%. Performance Status: His performance status is 70%. Nodes: He has no palpable adenopathy. Lungs: Clear to auscultation and percussion. Cardiac: Exam shows an S1 and S2. No S3. Abdomen: His abdominal exam shows no hepatosplenomegaly or palpable masses. He does have pain to percussion of his lower back. Extremities: Show no edema. Neurological: Exam is nonfocal. LABORATORY DATA: Laboratories today include a hemoglobin of 12.6, white count of 11,000, platelet count 365,000. Hiscreatinine is actually substantially better today at 1.48 with a BUN of 35. PSA from today is < 0.10. ASSESSMENT AND PLAN: Metastatic prostate cancer, remaining on Lupron, abiraterone, and prednisone. His cancer remains under good control. We are planning to obtain a CT scan and bone scan 6 months from now. He was diagnosed with cancer in 1999 treated with a radical prostatectomy with adjuvant radiation for his Gleason7 disease. Hormonal therapy was started in 2019 due to locally recurrent disease along with a metast atic lesion at L2. The patient overall is doing well. His major complaint continues to be his lowerback pain but his cancer appears to be well controlled at the current time. We will look forward toseeing him again 3 months from now. ELECTRONICALLY SIGNED - 10/15/2020 06:25 PM Gautam Cope M.D. men's basketball coach GLORIA/malia documented in this encounter Plan of Treatment [...] Chronic Care Management No change(03/23 1:47 PM APPLICATION DEFENSE MANAGER) No Ingrid Oden RN Note: Problem: Chronic Pain Goals: 1. Minimize further functional decline 2. Maximize quality of life 3. Control pain Strategies: - Activity/exercise program recommendation - Conservative stepwise pain medicine strategy with multi-disciplinary approach - Recommend healthy lifestyle strategies and compensatory methods as needed documented as of this encounter Results * PSA diagnostic (01/07/2021 12:44 PM CDT) PSA-Total <0.10 <=6.20 ng/mL [facility] Comment: Interpretive Data ?AGE ? SEX [...] LAB BLOOD ORDERABLES Final Resul t [facility] [place] [address] * (ABNORMAL) Comprehensive metabolic panel (01/07/2021 12:44 PM CDT) Sodium 138 135 - 145 mmol/L [facility] Comment:Testing performed by : [facility], [address] [place] [phone] Potassium, pl 3.8 3.3 - 4.9 mmol/L [facility] Comment:Testing performed by : [facility], [address] [place] [phone] Chloride 99 97 - 110 mmol/L [facility] Comment:Testing performed by : [facility], [address] [place] [phone] CO2 29 22 - 32 mmol/L [facility] Comment:Testing performed by : [facility], [address] [place] [phone] Anion gap 10 2 - 15 mmol/L [facility] Comment:Testing performed by : [facility], [address] [place] [phone] BUN 32(H) 8 - 25 mg/dL [facility] Comment:Testing performed by : [facility], [address] [place] [phone] Creatinine 1.54(H) 0.80 - 1.30 mg/dL [facility] Comment:Testing performed by : [facility], [address] [place] [phone] Glucose 296(H) 70 - 199 mg/dL [facility] Comment: Interpretive Data Fasting glucose [...] was last revised 2017. Testing performed by: [facility], [address] [place] [phone] Calcium 8.8 8.5 - 10.3 mg/dL [facility] Comment:Testing performed by : [facility], [address] [place] [phone] Bilirubin, total 0.3 0.1 - 1.2 mg/dL [facility] Comment:Testing performed by : [facility], [address] [place] [phone] Protein, pl 6.4(L) 6.5 - 8.5 g/dL [facility] Comment:Testing performed by : [facility], [address] [place] [phone] Albumin 3.9 3.5 - 5.0 g/dL [facility] Comment:Testing performed by : [facility], [address] [place] [phone] Alk phos 118 40 - 130 Units/L [facility] Comment:Testing performed by : [facility], [address] [place] [phone] ALT 12 7 - 55 Units/L [facility] Comment:Testing performed by : [facility], [address] [place] [phone] AST 11 10 - 50 Units/L [facility] Comment:Testing performed by : [facility], [address] [place] [phone] Blood 01/07/2021 12:4 4 PM CDT 01/07/2021 12:45 PM CDT us Gautam Cope MD LAB BLOOD ORDERABLES Final Resul t [facility] [place] [address] * (ABNORMAL) CBC with auto differential (01/07/2021 12:44 PM CDT) WBC 12.6(H) 3.8 - 9.8 K/cumm [facility] Comment:Testing performed by : [facility], [address] [place], [place] [phone] Hgb 12.8(L) 13.8 - 17.2 g/dL [facility] Comment:Testing performed by : [facility], [address] [place] [address] Hct 38.4(L) 40.7 - 50.3 % [facility] Comment:Testing performed by : [facility], [address] [place] [address] Plt 374 140 - 440 K/cumm [facility] Comment:Testing performed by : [facility], [address] [place] [address] MPV 7.4 6.8 - 10.4 fL [facility] Comment:Testing performed by : [place] [address] RBC 4.30(L) 4.50 - 5.70 M/cumm [facility] Comment:Testing performed by : [facility], [address] [place] [address] MCV 89.2 80.0 - 97.6 fL [facility] Comment:Testing performed by : [place] [address] MCH 29.6 26.7 - 33.7 pg [facility] Comment:Testing performed by : [place] [address] MCHC 33.2 32.7 - 35.5 g/dL [facility] Comment:Testing performed by : [facility], [address] [place] [address] RDW CV 14.4 11.8 - 14.6 % [facility] Comment:Testing performed by : [place] [address] NRBC abs 0.00 0.00 - 0.01 K/cumm [facility] Comment:Testing performed by : [place] [phone] Blood 01/07/2021 12:4 4 PM CDT 01/07/2021 12:45 PM CDT us Gautam Cope MD LAB BLOOD ORDERABLES Final Resul t Performing Organization Address [facility] Co de Phone Number [facility] [place] [address] * Lactate dehydrogenase (LD) (01/07/2021 12:44 PM CDT) Lactate dehydrogenase (LDH) 177 100 - 250 Units/L [facility] Comment:Testing performed by : [facility], [address] [place] [phone] Blood 01/07/2021 12:4 4 PM CDT 01/07/2021 12:45 PM CDT us Gautam Cope MD LAB BLOOD ORDERABLES Final Resul t Performing Organization Address [facility] de Phone Number [facility] [place] [address] * (ABNORMAL) Vitamin D 25 hydroxy (10/15/2020 10:32 AM CDT) Pathologist [facility] Vitamin D 25-OH 23(L) 30 - 80 ng/mL [facility] Blood specimen (specimen) 10/15/2020 10:32 AM CDT 10/15/2020 10:53 AM CDT us Gautam Cope MD LAB BLOOD ORDERABLES Final Resul t Performing Organization Address [facility] Co de Phone Number [facility] [place] [address] documented in this encounter Visit Diagnoses Diagnosis Prostate cancer (HCC)- Primary Malignant neoplasm of prostate documented in this encounter Orders Appointment Requests Count Last Ordered Date Fi rst Ordered Date [facility] CLINIC APPOINTMENT REQUEST 2 021 10/15/2020 [facility] INJECTION APPOINTMENT REQUEST 1 12/12 [facility] LAB APPOINTMENT 1 01/07/2021 documented in this encounter Care Teams Direct Support Staff Relationship Specialty Start Date End Date Kraig Ching MD [address] [place] [address] PCP - General 07/10/16 Gautam Cope MD [address] [place] [address] Medical Oncologist/Brush Operator Medical Oncology 08/18/18 Tramaine Roe MD [address] [place] [address] Referring Physician Urology 08/18/18 Sukhwinder Uribe MD [address] [place] [address] Consulting Physician Urology 08/18/18 Shay Guillermo MD [address] [place] [address] Referring Physician Urology 08/18/18 Marsha Landis, RN Registered Nurse 11/17/18 documented as of this encounter
--- OUTSIDE RECORDS SUMMARY | 2024-03-31 04:58 | XMS_ITS | Encounter Summary ---
Author Organization [facility] Address [address] [place] [address] Care Team Providers Care Seismograph Operator Helper Name Role Phone Kraig Ching MD Primary Care Provider [phone] Gautam Cope MD Unavailable Tramaine Roe MD Unavailable [phone] Sukhwinder Uribe MD Unavailable [phone] Shay Guillermo MD Unavailable [phone] Marsha Landis RN Unavailable Unavailab le Reason for Visit * Reason Comments Follow-up Encounter Details Date Type Department Care Team (Late st Contact Info) Description 09/26/2020 11:30 AM CDT Office Visit [facility] [address] [place] [id number] Kraig Ching MD [address] [place] [address] Essential hypertension (Primary Dx); Hyperlipidemia, unspecified hyperlipidemia type; Type 2 diabetes mellitus with stage 3 chronic kidney disease, without long-term current use of insulin, unspecified whether stage 3a or 3b CKD (CMS/HCC); Type 2 diabetes mellitus with other specified complication, with long-term current use of insulin (CMS/HCC); Stage 3 chronic kidney disease, unspecified whether stage 3a or 3b CKD; Chronic bilateral low back pain with bilateral [...] on file 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 Gender Identity Not on file Sexual Orientation Not on file documented as of this encounter Last Filed Vital Signs Vital Sign Reading Time Taken Comments Blood Pressure 120/80 09/26/2020 11:07 AM CDT Pulse 69 09/26/2020 11:07 AM CDT Temperature - - Respiratory Rate - - Oxygen Saturation 96% 09/26/2020 11:07 AM CDT Inhaled Oxygen Concentration - - Weight 94.8 kg (209 lb) 09/26/2020 11:07 AM CDT Height 180 cm (5' 10.87 ) 09/26/2020 11:07 AM CD T Body Mass Index 29.26 09/26/2020 11:07 AM CDT documented in this encounter Ordered Prescriptions Prescription Sig Dispense Quantity Refills Last Filled Start Date End Date BASAGLAR 100 unit/mL (3 mL) pen for injection Inject 16 units SC daily 6 mL 3 09/26/2020 12/26/2020 oxyCODONE (ROXICODONE) 5 mg immediate release tabletIndications: Pain Take 1 tablet (5 mg total) by mouth every 6 (six) hours as needed for pain 28 tablet 09/26/2020 02/05/2021 documented in this encounter Progress Notes * Kraig Ching MD - 09/26/2020 11:30 AM CDT Subjective/Objective Patient ID: David Wei is a 79 y.o. male. Chief Complaint hypertension HPI 1.HTN. He reports compliance with medications.He had stopped amlodipine. He resumed amlodipine 3 weeks ago. 2.Hyperlipidemia. He is intolerant of high potency statins. He is prescribed pravastatin. 3.D.M. He reports compliance with Insulin and oral medications. His HgbA1C was 7.9 on 07/23/20. Diabetes is complicated by CKD; his creatinine was 2.5 on 09/04/20. He denies NSAID use. 4.Back pain. 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 He follows with Pain management. He uses oxycodone as needed. Review of Systems Constitutional: Negative. HENT: Negative for sore throat. Eyes: Negative for visual disturbance. Respiratory: Negative for shortness of breath. Cardiovascular: Negative for chest pain. Gastrointestinal: Negative for abdominal pain. Genitourinary: Negative for hematuria. Musculoskeletal: Positive for back pain. Negative for arthralgias. Skin: Negative for rash. Neurological: Negative for dizziness. BP 120/80 (BP Location: Left arm, Patient Position: Sitting) Pulse 69 Ht 180 cm (5' 10.87 ) Wt 94.8 kg (209 lb) SpO2 96% BMI 29.26 kg/m?? Physical Exam Constitutional: Appearance: He is [...] Plan: Hypertension is controlled. Continue current regimen. Hyperlipidemia, unspecified hyperlipidemia type (E78.5) Assessment & Plan: Continue pravastatin. Order lipid panel. Orders: - Lipid panel; Future Type 2 diabetes mellitus with stage 3 chronic kidney disease, without long-term current use of insulin, unspecified whether stage 3a or 3b CKD ([facility]) (E11.22, N18.30) Assessment & Plan: Reviewed HgBA1C was 7.9 on 07/23/20. Continue Insulin. Stop metformin in setting of CKD. Follow withNephrology for CKD. Type 2 diabetes mellitus with other specified complication, with long-term current use of insulin ([facility]) (E11.69, Z79.4) Assessment & Plan: Reviewed HgBA1C was 7.9 on 07/23/20. Continue Insulin. Stop metformin in setting of CKD. Follow withNephrology for CKD. Stage 3 chronic kidney disease, unspecified whether stage 3a or 3b CKD (N18.30) Assessment & Plan: Follow with Nephrology;reviewed creatinine was 2.5 on 09/04/20. Stop metformin. Chronic bilateral low back pain with bilateral sciatica (M54.42, M54.41, G89.29) Assessment & Plan: Continue ROM exercises and follow with Pain Management. Refill oxycodone as needed. Other orders - oxyCODONE (ROXICODONE) 5 mg immediate release tablet; Take 1 tablet (5 mg total) by mouth every 6(six) hours as needed for pain - BASAGLAR 100 unit/mL (3 mL) pen for injection; Inject 16 units SC daily documented in this encounter Miscellaneous Notes * Assessment & Plan Note - Kraig Ching MD - 09/26/2020 11:28 AM CDT Associated Problem(s): Chronic bilateral low back pain with bilateral sciatica Continue ROM exercises and follow with Pain Management. Refill oxycodone as needed. * Assessment & Plan Note - Kraig Ching MD - 09/26/2020 10:48 AM CDT Associated Problem(s): Type 2 diabetes mellitus without complication, with long-term current use ofinsulin ([facility]/HCC) (HCC) (Resolved 10/02/2023) Reviewed HgBA1C was 7.9 on 07/23/20. Continue Insulin. Stop metformin in setting of CKD. Follow withNephrology for CKD. * Assessment & Plan Note - Kraig Ching MD - 09/26/2020 10:48 AM CDT Associated Problem(s): Chronic kidney disease, stage 3b (HCC) Follow with Nephrology;reviewed creatinine was 2.5 on 09/04/20. Stop metformin. * Assessment & Plan Note - Kraig Ching MD - 09/26/2020 10:47 AM CDT Associated Problem(s): Hypertension Hypertension is controlled. Continue current regimen. * Assessment & Plan Note - Kraig Ching MD - 09/26/2020 10:47 AM CDT Associated Problem(s): Hyperlipidemia Continue pravastatin. Order lipid panel. documented in this encounter Plan of Treatment [...] to monitor diabetes and kidney status, etc. [facility] Chronic Pain Care Plan Chronic Care Management No change(03/23 1:47 PM MUSEUM EXHIBIT DESIGNER) No Ingrid Oden RN Note: Problem: Chronic Pain Goals: 1. Minimize further functional decline 2. Maximize quality of life 3. Control pain Strategies: - Activity/exercise program recommendation - Conservative stepwise pain medicine strategy with multi-disciplinary approach - Recommend healthy lifestyle strategies and compensatory methods as needed documented as of this encounter Results * (ABNORMAL) Lipid panel (09/26/2020 11:50 AM CDT) [facility] Cholesterol 186 30 - 199 mg/dL [facility] Comment: Interpretive Data Ages < or = [...] Data was last revised on 2017. Triglycerides 330(H) <=149 mg/dL [facility] Comment: Interpretive Data Ages < or = [...] Data was last revised on 2017. HDL 34(L) >=40 mg/dL [facility] Comment: Interpretive Data Ages < [...] was last revised on 2017. LDL, calculated 86 <=129 mg/dL [facility] Comment: Interpretive Data Ages < or [...] was last revised on 2017. Non-HDL Cholesterol 152 mg/dL [facility] Comment: Interpretive Data Ages [...] revised on 2017. [facility]ol/HDL ratio 5 [facility] Blood specimen (specimen) 09/26/2020 11:50 AM CDT 09/26/2020 5:15 PM CDT us Kraig Ching MD LAB BLOOD ORDERABLES Final Re sult Performing Organization Address City/State/[facility] Co de Phone Number [facility] [place] [address] documented in this encounter Visit Diagnoses Diagnosis Essential hypertension- Primary Unspecified essential hypertension Hyperlipidemia, unspecified hyperlipidemia type Type 2 diabetes mellitus with stage 3 chronic kidney disease, without long-term current use of insulin, unspecified whether stage 3a or 3b CKD (HCC) Type 2 diabetes mellitus with other specified complication, with long-term current use of insulin (HCC) Stage 3 chronic kidney disease, unspecified whether stage 3a or 3b CKD (HCC) Chronic bilateral low back pain with bilateral sciatica documented in this encounter Discontinued Medications Medication Sig Discontinue Reason Start Date End Da te oxyCODONE (ROXICODONE) 5 mg immediate release tabletIndications:Pain Take 1 tablet (5 mg total) by mouth every 6 (six) hours as needed for pain Reorder 12/14/2019 09/26/2020 BASAGLAR 100 unit/mL (3 mL) pen for injection INJECT 10 UNITS UNDER THE SKIN DAILY DIRECTED Reorder 09/16/2020 09/26/2020 documented as of this encounter Care Teams Seismograph Operator Helper Relationship Specialty Start Date End Date Kraig Ching MD [address] [place] [address] PCP - General 07/10/16 Gautam Cope MD [address] [place] [address] Medical Oncologist/Structural Mill Supervisor Medical Oncology 08/18/18 Tramaine Roe MD [address] [place] [address] Referring Physician Urology 08/18/18 Sukhwinder Uribe MD [address] [place] [address] Consulting Physician Urology 08/18/18 Shay Guillermo MD [address] [place] [address] Referring Physician Urology 08/18/18 Marsha Landis, RN Registered Nurse 11/17/18 documented as of this encounter
--- OUTSIDE RECORDS SUMMARY | 2024-03-31 04:58 | XMS_ITS | Encounter Summary ---
Author Organization [facility] Address [address] [place] [address] Care Team Providers Care Photo Finish Photographer Name Role Phone Kraig Ching MD Primary Care Provider [phone] Gautam Cope MD Unavailable Tramaine Roe MD Unavailable [phone] Sukhwinder Uribe MD Unavailable [phone] Shay Guillermo MD Unavailable Marsha Landis RN Unavailable Unavailab le Encounter Details Date Type Department Care Team (Late st Contact Info) Description 02/28/2021 Orders Only [facility] [address] [place] [phone] Kraig Ching MD 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 Minimize further functional decline 2. Maximize quality of life 3. Control pain Strategies: - Activity/exercise program recommendation - Conservative stepwise pain medicine strategy with multi-disciplinary approach - Recommend healthy lifestyle strategies and compensatory methods as needed documented as of this encounter Visit Diagnoses Not on filedocumented in this encounter Care Teams Photo Finish Photographer Relationship Specialty Start Date End Date Kraig Ching MD [address] [place] [address] PCP - General 07/10/16 Gautam Cope MD [address] [place] [address] Medical Oncologist/Building Rental Manager Medical Oncology 08/18/18 Tramaine Roe MD [address] [place] [address] Referring Physician Urology 08/18/18 Sukhwinder Uribe MD [address] [place] [address] Consulting Physician Urology 08/18/18 Shay Guillermo MD [address] [place] [address] Referring Physician Urology 08/18/18 Marsha Landis, RN Registered Nurse 11/17/18 documented as of this encounter
--- OUTSIDE RECORDS SUMMARY | 2024-03-31 04:58 | XMS_ITS | Encounter Summary ---
Author Organization [facility] Address [address] [place] [address] Phone Care Team Providers Care Sandblaster Stone Name Role Phone Kraig Ching MD Primary Care Provider [phone] Gautam Cope MD Unavailable Tramaine Roe MD Unavailable [phone] Sukhwinder Uribe MD Unavailable [phone] Shay Guillermo MD Unavailable [phone] Marsha Landis RN Unavailable Unavailab le Reason for Referral * MRI/CAT/PET Scan (Routine) - Closed Specialty Diagnoses / Procedures Referred By Saleem narvaez Referred To Contact Radiology Diagnoses Prostate cancer (HCC) Procedures CT chest abdomen pelvis without contrast Gautam Cope MD [address] [facility] [address] [place] [address] Phone: tel: fax: [address] [address] Referral ID Status Reason Start Date Expiration Date Visits Re quested Visits Authorized [id number] Closed 01/01/2021 01/31/2022 1 1 * Diagnostic Imaging (Routine) - Closed Specialty Diagnoses / Procedures Referred By Saleem narvaez Referred To Contact Diagnoses Prostate cancer (HCC) Procedures NM bone scan whole body Gautam Cope MD [address] [facility] [address] [place] [address] Phone: tel: fax: [facility] [address] [facility] [place] [address] Referral ID Status Reason Start Date Expiration Date Visits Re quested Visits Authorized [id number] Closed 01/01/2021 01/31/2022 2 2 Encounter Details Date Type Department Care Team (Late st Contact Info) Description 01/07/2021 1:15 PM CDT Office Visit [facility] Oncology [address] [facility] 7th [place] [address] [place] [id number] Gautam Cope MD [address] [facility] [address] [place] [address] Prostate cancer (CMS/HCC) (HCC) (Primary Dx) Social [...] on file 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 WINDERMAN Gender Identity Not on file Sexual Orientation Not on file documented as of this encounter Last Filed Vital Signs Vital Sign Reading Time Taken Comments Blood Pressure 158/72 01/07/2021 1:09 PM CDT Pulse 73 01/07/2021 1:09 PM CDT Temperature 36.3 ??C (97.4 ??F) 01/07/2021 1:08 PM CD T Respiratory Rate 18 01/07/2021 1:08 PM CDT Oxygen Saturation 96% 01/07/2021 1:09 PM CDT Inhaled Oxygen Concentration - - Weight 93.9 kg (207 lb) 01/07/2021 1:08 PM CDT Height - - Body Mass Index 28.98 12/26/2020 10:39 AM CDT documented in this encounter Progress Notes * Beatris Herrmann NP - 01/07/2021 12:00 AM CDT PATIENT NAME: DAVID DREW : 1940 [place]: 01/07/2021 Mr. Drew is an 80-year-old patient of Dr. Cope with metastatic prostate cancer. His prostate cancer dates back to October 1999, when his PSA was 5.5. A prostate biopsy showed Viv[place] 3 + 4 disease, and he was treated with a radical prostatectomy by Dr. Guillermo. His pathology showed [place] 4 + 3 disease, with extracapsular extension, and a positive margin, but no lymph node involvement. He received adjuvant radiation therapy, completed in November 1999. In June 2012, his PSA was rising, and by October 2018, it was in the double digits. An MRI scan in August 2018 suggested local recurrence, despite surgery and radiation therapy. Also noted was a lesion at L2. We met the patient at that time andbegan Lupron and added abiraterone and prednisone in October 2018. Mr. Drew remains on this regimen, and his PSA has responded nicely, dropping to an undetectable level. He denies any difficulty urinating. His vasomotor symptoms are tolerable. He has chronic lower back pain, followed by pain management, and he has received steroid injections, with improvement in his pain. Unfortunately, this has resulted in elevated blood sugars, requiring higher doses of his long-acting insulin, managed by his primary care physician, Dr. Ching. His hemoglobin A1c from earlier this month was 11.9. Mr. Drew admits that he is fairly inactive, mostly because of COVID. Previously, he was exercising at a local gym, but he has not done this in quite some time. His other comorbidities, besides his cancer and diabetes, include chronic kidney disease, hypertension, paroxysmal atrial fibrillation, and hyperlipidemia. He received a [employer] COVID vaccine in June. The patient remains independent in his activities of daily living. All other systems are negative. He admits to urinary incontinence. PHYSICAL EXAMINATION: Shows a male whose weight is 93.9 kg. Blood pressure is 128/72, with a pulse of 73. He is afebrile.His oxygen saturation is 96% on room air. Performance Status: His performance status is 70%. Nodes: No palpable cervical or supraclavicular adenopathy. Cardiac: Shows an S1, S2. No S3 or murmurs. Lungs: Clear to auscultation bilaterally. Abdomen: Soft, nontender, nondistended. No hepatosplenomegaly or palpable mass noted. Bowel sounds are active. Musculoskeletal: He has reproducible pain in his lower back, otherwise none. He gets on and off theexam table independently. Extremities: Lower extremities show no edema. Neurologic: Nonfocal. LABORATORY DATA: From today shows a WBC of 12.6 and hemoglobin of 12.8. His platelet count is 374,000. His liver function is normal, and his creatinine is 1.54. His PSA is < 0.10. ASSESSMENT AND PLAN: 1. Metastatic prostate cancer, currently on Lupron, abiraterone, and prednisone, with good control of his cancer. His prostate cancer dates back to 1999, when he was treated with a radical prostatectomy, followed by adjuvant radiation therapy. Hormonal therapy was started in the spring, when there was evidence of metastatic involvement. He has been on Lupron, abiraterone, and prednisone since October 2018, with good control of his cancer. 2. Chronic lower back pain. He is receiving steroid injections, with improvement in his pain. 3. Diabetes. Unfortunately, his steroid injections are driving his sugars up, and his hemoglobin A1c is high. We will see the patient again 3 months from now for further follow-up. We will plan for a CT scan and bone scan done prior to that office visit. He will be due for another bone density in January 2022. The patient is comfortable with this plan and will call with any issues in between visits. ELECTRONICALLY SIGNED - 01/08/2021 09:29 AM BRANDO Chavez Nurse Practitioner In collaboration with Gautam Cope M.D. My signature confirms I have reviewed the note and agree with the assessment and plan of BRANDO Chavez ELECTRONICALLY SIGNED - 01/08/2021 12:14 PM Gautam Cope M.D. kalsominer ISAK/GLORIA/lul documented in this encounter Plan of [...] Chronic Care Management No change(03/23 1:47 PM WINDERMAN) No Ingrid Oden, RN Note: Problem: Chronic Pain Goals: 1. Minimize further functional decline 2. Maximize quality of life 3. Control pain Strategies: - Activity/exercise program recommendation - Conservative stepwise pain medicine strategy with multi-disciplinary approach - Recommend healthy lifestyle strategies and compensatory methods as needed documented as of this encounter Results * PSA diagnostic (04/01/2021 9:38 AM WINDERMAN) PSA-Total <0.10 <=6.20 ng/mL [facility] Comment: Interpretive Data ?AGE ? SEX ?REFERENCE INTERVAL 0 minutes-150 years ?Female ?None 0 minutes-49 years ? Male ?None ? 50-59 years ? Male ?0-3.90 ? 60-69 years ? Male ?0-5.40 ? 70-79 years ? Male ?0-6.20 ? 80-150 years ?Male ?0-6.20 Current interpretive data last revised 2017. Blood 04/01/2021 9:38 AM WINDERMAN 04/01/2021 10:31 AM WINDERMAN us Gautam Cope MD LAB BLOOD ORDERABLES Final Resul t [facility] Department [place] [address] * (ABNORMAL) Comprehensive metabolic panel (04/01/2021 9:38 AM WINDERMAN) Sodium 141 135 - 145 mmol/L [facility] Comment:Testing performed by : [facility], [address] [place] [phone] Potassium, pl 4.2 3.3 - 4.9 mmol/L [facility] Comment:Testing performed by : [facility], [address] [place] [phone] Chloride 100 97 - 110 mmol/L [facility] Comment:Testing performed by : [facility], [address] [place] [phone] CO2 34(H) 22 - 32 mmol/L [facility] Comment:Testing performed by : [facility], [address] [place] [phone] Anion gap 7 2 - 15 mmol/L [facility] Comment:Testing performed by : [facility], [address] [place] [phone] BUN 29(H) 8 - 25 mg/dL [facility] Comment:Testing performed by : [facility], [address] [place] [phone] Creatinine 1.52(H) 0.80 - 1.30 mg/dL [facility] Comment:Testing performed by : [facility], [address] [place] [phone] Glucose 153 70 - 199 mg/dL [facility] Comment: Interpretive Data Fasting glucose [...] revised 2017. Testing performed by: [facility], [address] [place] [phone] Calcium 9.3 8.5 - 10.3 mg/dL [facility] Comment:Testing performed by : [facility], [address] [place] [phone] Bilirubin, total 0.3 0.1 - 1.2 mg/dL [facility] Comment:Testing performed by : [facility], [address] [place] [phone] Protein, pl 6.9 6.5 - 8.5 g/dL [facility] Comment:Testing performed by : [facility], [address] [place] [phone] Albumin 4.1 3.5 - 5.0 g/dL [facility] Comment:Testing performed by : [facility], [address] [place] [phone] Alk phos 123 40 - 130 Units/L [facility] Comment:Testing performed by : [facility], [address] [place] [phone] ALT 13 7 - 55 Units/L [facility] Comment:Testing performed by : [facility], [address] [place] [phone] AST 12 10 - 50 Units/L [facility] Comment:Testing performed by : [facility], [address] [place] [phone] Blood 04/01/2021 9:38 AM WINDERMAN 04/01/2021 9:39 AM WINDERMAN us Gautam Cope MD LAB BLOOD ORDERABLES Final Resul t [facility] [place] [address] * (ABNORMAL) CBC with auto differential (04/01/2021 9:38 AM WINDERMAN) WBC 10.2(H) 3.8 - 9.8 K/cumm [facility] Comment:Testing performed by : [facility], [address] [place] [phone] Hgb 12.6(L) 13.8 - 17.2 g/dL [facility] Comment:Testing performed by : [facility], [address] [place] [phone] Hct 37.8(L) 40.7 - 50.3 % [facility] Comment:Testing performed by : [facility], [address] [place] [phone] Plt 368 140 - 440 K/cumm [facility] Comment:Testing performed by : [facility], [address] [place] [phone] MPV 7.4 6.8 - 10.4 fL [facility] Comment:Testing performed by : [facility], [address] [place], [place] [phone] RBC 4.36(L) 4.50 - 5.70 M/cumm [facility] Comment:Testing performed by : [place] [phone] MCV 86.6 80.0 - 97.6 fL [facility] Comment:Testing performed by : [address] [address] MCH 29.0 26.7 - 33.7 pg [facility] Comment:Testing performed by : [facility], [address] [place] [phone] MCHC 33.5 32.7 - 35.5 g/dL [facility] Comment:Testing performed by : [address] [address] RDW CV 14.3 11.8 - 14.6 % [facility] Comment:Testing performed by : [address] [phone] NRBC abs 0.00 0.00 - 0.01 K/cumm [facility] Comment:Testing performed by : [facility], [address] [place] [phone] Blood 04/01/2021 9:38 AM WINDERMAN 04/01/2021 9:39 AM WINDERMAN us Gautam Cope MD LAB BLOOD ORDERABLES Final Resul t [facility] [place] [address] * Lactate dehydrogenase (LD) (04/01/2021 9:38 AM WINDERMAN) Lactate dehydrogenase (LDH) 164 100 - 250 Units/L [facility] Comment:Testing performed by : [facility], [address] [facility] [address] Blood 04/01/2021 9:38 AM WINDERMAN 04/01/2021 9:39 AM WINDERMAN us Gautam Cope MD LAB BLOOD ORDERABLES Final Resul t [facility] Department [place] [address] * NM bone scan whole body (03/25/2021 1:51 PM WINDERMAN) Anatomical Region Laterality Modality N/A Digital Radiogra phy 03/25/2021 2:25 PM WINDERMAN Impressions 03/25/2021 4:36 PM WINDERMAN 1. Decreased conspicuity of the L2 osseous [...] Hopkins MD, Ph.D Narrative 03/25/2021 4:36 PM WINDERMAN EXAMINATION: ??BONE SCINTIGRAPHY (WHOLE-BODY) DATE OF STUDY: ?? 03/25/2021 RADIOPHARMACEUTICAL: ?? 23.1 mCi Tc-99m MDP i.v. HISTORY: ??80-year-old man with prostate cancer (initially diagnosed in October 1999), status post radical prostatectomy, adjuvant radiation therapy (November 1999), and long-term Lupron, abiraterone, and prednisone since 2018, with corresponding decrease in PSA (currently undetectable, [...] and long-term Lupron, abiraterone, and prednisone since 2018, with corresponding decrease in PSA (currently undetectable, [...] Electronically signed by: Ar Hopkins MD, Ph.D us Gautam Cope MD IM NM PROCEDURES Final Result * CT chest abdomen pelvis without contrast (03/25/2021 11:54 AM WINDERMAN) Anatomical Region Laterality Modality Body N/A Computed Tomogra phy 03/25/2021 12:3 6 PM WINDERMAN Impressions 03/25/2021 12:36 PM WINDERMAN 1. Stable groundglass nodules in the right upper and lower lobes measuring up to 13 mm, suspicious for low-grade adenocarcinoma. Attention on follow-up is recommended. 2. Improved L2 sclerotic lesion. Otherwise, no CT evidence of metastatic disease. Electronically signed by: Promise Sheffield M.D. Narrative 03/25/2021 12:36 PM WINDERMAN Examination: CT chest, abdomen, and pelvis without [...] Prostate cancer (HCC) Malignant neoplasm of prostate Prostate cancer (HCC) Malignant neoplasm of prostate documented in this encounter Orders Appointment Requests Count Last Ordered Date Fi rst Ordered Date ONCBCN CLINIC APPOINTMENT REQUEST 2 021 01/07/2021 ONCBCN INJECTION APPOINTMENT REQUEST 1 03/13 ONCBCN LAB APPOINTMENT 1 04/01/2021 documented in this encounter Care Teams Sandblaster Stone Relationship Specialty Start Date End Date Kraig Ching MD [address] [place] [address] PCP - General 07/10/16 Gautam Cope MD [address] [place] [address] Medical Oncologist/Price Accuracy Supervisor Medical Oncology 08/18/18 Tramaine Roe MD [address] [facility] [address] [place] [address] Referring Physician Urology 08/18/18 Sukhwinder Uribe MD [address] [facility] [address] [place] [address] Consulting Physician Urology 08/18/18 Shay Guillermo MD [address] [facility] [address] [place] [address] Referring Physician Urology 08/18/18 Marsha Landis, RN Registered Nurse 11/17/18 documented as of this encounter
--- OUTSIDE RECORDS SUMMARY | 2024-03-31 04:58 | XMS_ITS | Encounter Summary ---
Author Organization [facility] Address [address] [place] [address] Phone Care Team Providers Care Columnist/Commentator Name Role Phone Kraig Ching MD Primary Care Provider [phone] Gautam Cope MD Unavailable Tramaine Roe MD Unavailable [phone] Sukhwinder Uribe MD Unavailable [phone] Shay Guillermo MD Unavailable [phone] Marsha Landis RN Unavailable Unavailab le Encounter Details Date Type Department Care Team (Latest Contact Info) Description 09/18/2020 Orders Only [facility] Scanning, Provider Social History Tobacco Use Types [...] on file 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 [facility] Chronic Pain Care Plan Chronic Care Management No change(03/23 1:47 PM WELFARE CENTRE MANAGER) No Ingrid Oden, RN Note: Problem: Chronic Pain Goals: 1. Minimize further functional decline 2. Maximize quality of life 3. Control pain Strategies: - Activity/exercise program recommendation - Conservative stepwise pain medicine strategy with multi-disciplinary approach - Recommend healthy lifestyle strategies and compensatory methods as needed documented as of this encounter Procedures Procedure Name Priority Date/Time Associated Diagnosis Comments SCAN - RADIOLOGY/IMAGING 09/18/2020 documented in this encounter Results * SCAN - RADIOLOGY/IMAGING (09/18/2020) Anatomical Region Laterality Modality Other us Provider Scanning Edited Result - Final documented in this encounter Visit Diagnoses Not on filedocumented in this encounter Care Teams Columnist/Commentator Relationship Specialty Start Date End Date Kraig Ching MD [address] [place] [address] PCP - General 07/10/16 Gautam Cope MD [address] [place] [address] Medical Oncologist/Pattern Maker Medical Oncology 08/18/18 Tramaine Roe MD [address] [place] [address] Referring Physician Urology 08/18/18 Sukhwinder Uribe MD [address] [place] [address] Consulting Physician Urology 08/18/18 Shay Guillermo MD [address] [place] [address] Referring Physician Urology 08/18/18 Marsha Landis, RN Registered Nurse 11/17/18 documented as of this encounter
--- OUTSIDE RECORDS SUMMARY | 2024-03-31 04:58 | XMS_ITS | Encounter Summary ---
Author Organization [facility] Address [address] [facility] [address] [place] [address] Care Team Providers Care Bridge Construction Inspector Name Role Phone Kraig Ching MD Primary Care Provider [phone] Gautam Cope MD Unavailable Tramaine Roe MD Unavailable [phone] Sukhwinder Uribe MD Unavailable [phone] Shay Guillermo MD Unavailable [phone] Marsha Landis RN Unavailable Unavailab le Reason for Visit * Reason Onset Date Comments Abdominal Pain 09/20/2020 Encounter Details Date Type Department Care Team (Late st Contact Info) Description 09/20/2020 Nurse Triage [facility] [address] [facility] [address] [place] [phone] Kraig Ching MD [address] [facility] [address] [place], [place] [id number] Social History Tobacco Use Types Packs/Day Years [...] on file 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 Ching is not available on patient will see Rajani * Telephone Encounter - Tila Solorzano MD - 09/23/2020 10:12 AM CDT Recommend patient either be seen in office [facility] with 1 of the advanced practice providers or go to urgent care. Would advise CT scan be done before empiric antibiotics due to potential risks of antibiotic therapy. * Telephone Encounter - Kellen Patten MA - 09/23/2020 10:[address] Solorzano please advise see not * Telephone Encounter - Leonora Hunt RN - 09/20/2020 11:07 AM CDT Pt reports 2-3 days of off/on abd pain PAVEL lower abd but more so left sided. Has had 2 episodes of diarrhea this morning. No blood or mucus in stool. No n/v, no fever, denies other COVID related symptoms. No noted jaundice. Pt has had history of diverticulitis, states this is similar pain. RN UNABLE to schedule in office per protocol with symptoms of diarrhea, RN tasking for advice to pt. Home care advice given and pt to call if worsening. Reason for Disposition ? ? MILD pain that comes and goes (cramps) lasts > 24 hours Protocols used: ABDOMINAL PAIN - [id number] * Telephone Encounter - Leonora Hunt RN - 09/20/2020 11:03 AM CDT Regarding: Moderate pain in lower sides of abdomen ----- Message from Cheryle Pride sent at 09/20/2020 10:16 AM CDT ----- Symptom Based Call COVID-19 Screening: Symptoms: No (09/20/2020 10:14 AM) Exposure: No (09/20/2020 10:14 AM) Positive COVID-19 test within the last 14 days: No (09/20/2020 10:14 AM) Chief Complaint: Moderate pain in lower sides of abdomen Duration: 2-3 days Why was appointment not scheduled? Requesting prescription Caller's Callback #: [phone] Additional Comments: Patient was diagnosed with diverticulitis in the past and thinks this is a flare up. Did you relay expectation for call back (adult and pediatric neurologist: Red Flag 10-15 min; non- emergent up to 3 hours)(Practice: Red Flag warm transfer; non-emergent up to 24 hours)? Yes documented in this encounter Plan of Treatment [...] to monitor diabetes and kidney status, etc. [facility] Chronic Pain Care Plan Chronic Care Management No change(03/23 1:47 PM LOCKSTITCH SLEEVE MAKER) No Ingrid Oden RN Note: Problem: Chronic Pain Goals: 1. Minimize further functional decline 2. Maximize quality of life 3. Control pain Strategies: - Activity/exercise program recommendation - Conservative stepwise pain medicine strategy with multi-disciplinary approach - Recommend healthy lifestyle strategies and compensatory methods as needed documented as of this encounter Visit Diagnoses Not on filedocumented in this encounter Care Teams Bridge Construction Inspector Relationship Specialty Start Date End Date Kraig Ching MD [address] [facility] [address] [place] [address] PCP - General 07/10/16 Gautam Cope MD [address] [facility] [address] [place] [address] Medical Oncologist/Warhead Maintenance Specialist Medical Oncology 08/18/18 Tramaine Roe MD [id number] [place] [address] Referring Physician Urology 08/18/18 Sukhwinder Uribe MD [address] [address] Consulting Physician Urology 08/18/18 Shay Guillermo MD [id number] [place] [address] Referring Physician Urology 08/18/18 Marsha Landis RN Registered Nurse 11/17/18 documented as of this encounter
--- OUTSIDE RECORDS SUMMARY | 2024-03-31 04:58 | XMS_ITS | Encounter Summary ---
Author Organization [facility] Address [address] [place] [address] Phone Care Team Providers Care Master Of Ceremonies Name Role Phone Kraig Ching MD Primary Care Provider [phone] Gautam Cope MD Unavailable Tramaine Roe MD Unavailable [phone] Sukhwinder Uribe MD Unavailable Shay Guillermo MD Unavailable [phone] Marsha Landis RN Unavailable Unavailab le Encounter Details Date Type Department Care Team (Late st Contact Info) Description 10/07/2020 Orders Only [facility] Nephrology [address] [facility] 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 Renal function continues to worsen. Will hold ACEi and repeat renal function later in the week. May need to hold thiazide diuretic as well. Has been on PPI for several years per pt -consider holding if no improvement in renal function. documented in this encounter Plan of Treatment Scheduled Orders Name Type Priority Associated Diagnoses Orde r Schedule Urinalysis reflex to microscopic Lab Routine GABRIELA (acute kidney injury) ([facility]) Expected: 10/07/2020, Expires: 10/07/2021 documented as of this encounter Goals Goal [...] Chronic Care Management No change(03/23 1:47 PM ADMISSIONS CLINICIAN) No Ingrid Oden, RN Note: Problem: Chronic Pain Goals: 1. Minimize further functional decline 2. Maximize quality of life 3. Control pain Strategies: - Activity/exercise program recommendation - Conservative stepwise pain medicine strategy with multi-disciplinary approach - Recommend healthy lifestyle strategies and compensatory methods as needed documented as of this encounter Procedures Procedure Name Priority Date/Time Associated Diagnosis Comments COPY RECEIVED FROM Routine 10/11/2020 1: 10 PM CDT COPY(IES) SENT TO: Routine 10/11/2020 1: 10 PM CDT URINALYSIS AND REFLEX TO MICROSCOPIC Routine 10/11/2020 1:10 PM CDT RENAL FUNCTION PANEL Routine 10/11/2020 1:10 PM CDT GABRIELA (acute kidney injury) ([facility]) documented in this encounter Results * Copy received from (10/11/2020 1:10 PM CDT) Copy Rec'd from: [facility] Comment: ?[facility] - INTERNAL MED-RENAL ?[id number] ?[place] [address] 10/11/2020 1:10 PM CDT 10/11/2020 1:11 PM CDT Narrative [facility] - 10/12/2020 8:25 AM CDT PT VARIFIED ALL INFO IS CORRECT FASTING:NO FASTING: NO us Lin Guerrero MD LAB BLOOD ORDERABLES Final Resul t [facility] * (ABNORMAL) Urinalysis reflex to microscopic (10/11/2020 1:10 PM CDT) Color, ur YELLOW YELLOW [facility] Appearance, ur CLEAR CLEAR [facility] Specific gravity 1.019 1.001 - 1.035 [facility] pH, ur 6.0 5.0 - 8.0 [facility] Glucose, ur 3+(A) NEGATIVE [facility] Bilirubin, ur NEGATIVE NEGATIVE [facility] Ketones, ur NEGATIVE NEGATIVE [facility] Blood, ur NEGATIVE NEGATIVE [facility] Protein, ur, quant NEGATIVE NEGATIVE [facility] Nitrites, ur NEGATIVE NEGATIVE [facility] Leukocyte esterase, ur NEGATIVE NEGATIVE [facility] WBC, ur CANCELED < OR = 5 /HPF [facility] Comment:Result canceled by t he ancillary. RBC, ur CANCELED < OR = 2 /HPF [facility] Comment:Result canceled by t he ancillary. Epithelial cells, squamous, ur CANCELED < OR = 5 /HPF [facility] Comment:Result canceled by t he ancillary. Epithelial cells, transitional CANCELED < OR = 5 /HPF [facility] Comment:Result canceled by t he ancillary. Epithelial cells, renal, ur CANCELED < OR = 3 /HPF [facility] Comment:Result canceled by t he ancillary. Bacteria, ur, quant CANCELED NONE SEEN /HPF [facility] Comment:Result canceled by t he ancillary. Calcium oxalate crystals, ur CANCELED NONE OR FEW /HPF [facility] Comment:Result canceled by t he ancillary. Triple phosphate crystals, ur CANCELED NONE OR FEW /HPF [facility] Comment:Result canceled by t he ancillary. Uric acid crystals, ur CANCELED NONE OR FEW /HPF [facility] Comment:Result canceled by t he ancillary. Amorphous crystals, ur CANCELED NONE OR FEW /HPF [facility] Comment:Result canceled by t he ancillary. Crystals, ur CANCELED NONE SEEN /HPF [facility] Comment:Result canceled by t he ancillary. Hyaline cast CANCELED NONE SEEN /LPF [facility] Comment:Result canceled by t he ancillary. Granular casts, ur CANCELED NONE SEEN /LPF [facility] Comment:Result canceled by t he ancillary. Casts CANCELED NONE SEEN /LPF [facility] Comment:Result canceled by t he ancillary. Yeast, ur CANCELED NONE SEEN /HPF [facility] Comment:Result canceled by t he ancillary. Comments CANCELED [facility] Comment:Result canceled by t he ancillary. 10/11/2020 1:10 PM CDT 10/11/2020 1:11 PM CDT Narrative [facility] - 10/12/2020 8:25 AM CDT PT VARIFIED ALL INFO IS CORRECT FASTING:NO FASTING: NO us Lin Guerrero MD LAB URINE ORDERABLES Final Resul t [facility] [id number] [facility] [place] [address] * COPY(IES) SENT TO: (10/11/2020 1:10 PM CDT) COPY(IES) SENT TO: [facility] Comment: ?[facility] INTERNAL MED RENAL ?[id number] ?[place] [address] 10/11/2020 1:10 PM CDT 10/11/2020 1:11 PM CDT Narrative [facility] - 10/12/2020 8:23 AM CDT PT VARIFIED ALL INFO IS CORRECT FASTING:NO FASTING: NO us Lin Guerrero MD LAB BLOOD ORDERABLES Final Resul t [facility] * (ABNORMAL) Renal function panel (10/11/2020 1:10 PM CDT) Glucose 336(H) 65 - 139 mg/dL [facility] Comment: ? Non-fasting reference interval BUN 56(H) 7 - 25 mg/dL [facility] Creatinine 2.29(H) 0.70 - 1.18 mg/dL [facility] Comment: For patients >49 years of age, the reference limit for Creatinine is approximately 13% higher for people identified as -Finnish. eGFR NON-AFR. WELSH 26(L) > OR = 60 mL/min/1. 73m2 [facility] EGFR 30(L) > OR = 60 mL/min/1. 73m2 [facility] BUN/creat ratio 24(H) 6 - 22 (calc) [facility] Sodium 137 135 - 146 mmol/L [facility] Potassium, pl 5.1 3.5 - 5.3 mmol/L [facility] Chloride 100 98 - 110 mmol/L [facility] CO2 24 20 - 32 mmol/L [facility] Calcium 9.2 8.6 - 10.3 mg/dL [facility] Phosphorus, sr 4.2 2.1 - 4.3 mg/dL [facility] Albumin 4.0 3.6 - 5.1 g/dL [facility] Blood specimen (specimen) 10/11/2020 1:10 PM CDT 10/11/2020 1:11 PM CDT Narrative [facility] - 10/12/2020 8:25 AM CDT PT VARIFIED ALL INFO IS CORRECT FASTING:NO FASTING: NO us Lin Guerrero MD LAB BLOOD ORDERABLES Final Resul t [facility] [address] [address] documented in this encounter Visit Diagnoses Diagnosis GABRIELA (acute kidney injury) (HCC)- Primary documented in this encounter Care Teams Master Of Ceremonies Relationship Specialty Start Date End Date Kraig Ching MD [address] [place] [address] PCP - General 07/10/16 Gautam Cope MD [address] [place] [address] Medical Oncologist/Weblogic Administrator Medical Oncology 08/18/18 Tramaine Roe MD [address] [place] [address] Referring Physician Urology 08/18/18 Sukhwinder Uribe MD [address] [place] [address] Consulting Physician Urology 08/18/18 Shay Guillermo MD [address] [place] [address] Referring Physician Urology 08/18/18 Marsha aLndis, RN Registered Nurse 11/17/18 documented as of this encounter
--- OUTSIDE RECORDS SUMMARY | 2024-03-31 04:58 | XMS_ITS | Encounter Summary ---
Author Organization [facility] Address [address] [place] [address] Care Team Providers Care Cloth Pattern Maker Name Role Phone Kraig Ching MD Primary Care Provider [phone] Gautam Cope MD Unavailable Tramaine Roe MD Unavailable [phone] Sukhwinder Uribe MD Unavailable [phone] Shay Guillermo MD Unavailable [phone] Marsha Landis RN Unavailable Unavailab le Encounter Details Date Type Department Care Team (Late st Contact Info) Description 12/26/2020 10:45 AM CDT Office Visit [facility] [address] [facility] [address] [place] [address] Kraig Ching MD [address] [place] [address] Hypertensive kidney disease with stage 3 chronic kidney disease, unspecified whether stage 3a or 3b CKD (HCC) (Primary Dx); Hyperlipidemia associated with type 2 diabetes mellitus (HCC); Type 2 diabetes mellitus with other specified complication, with long-term current use of insulin (HCC); Chronic bilateral low back pain with bilateral sciatica; Encounter for screening; Therapeutic drug monitoring Social History Tobacco Use Types Packs/Day Years [...] on file Legal Sex 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 Gender Identity Not on file Sexual Orientation Not on file documented as of this encounter Last Filed Vital Signs Vital Sign Reading Time Taken Comments Blood Pressure 140/80 12/26/2020 10:39 AM CDT Pulse 93 12/26/2020 10:39 AM CDT Temperature - - Respiratory Rate - - Oxygen Saturation 96% 12/26/2020 10:39 AM CDT Inhaled Oxygen Concentration - - Weight 94.3 kg (208 lb) 12/26/2020 10:39 AM CDT Height 180 cm (5' 10.87 ) 12/26/2020 10:39 AM CD T Body Mass Index 29.12 12/26/2020 10:39 AM CDT documented in this encounter Ordered Prescriptions Prescription Sig Dispense Quantity Refills Last Filled Start Date End Date BASAGLAR 100 unit/mL (3 mL) pen for injection Inject 20 units SC daily new dose 8 mL 3 12/26/2020 04/08/2021 documented in this encounter Progress Notes * Kraig Ching MD - 12/26/2020 10:45 AM CDT Subjective/Objective Patient ID: David Wei is a 80 y.o. male. Chief Complaint Hypertension HPI 1.HTN. He reports compliance with blood pressure medications. Hypertension is complicated by CKD. His creatinine was 1.48 on 10/15/20;his creatinine was improved from 3.7. 2.Diabetes.He is prescribed Insulin and Januvia. Metformin was stopped at last visit. His HgbA1C was elevated at 7.8 at last visit. Diabetes is complciated by hyperlipidemia. He is intolerant of highpotency statins. He is prescribed pravastatin. He had a steroid shot from Pain Management and he notes sugars are over 200. He is taking 16 units of insulin. 3.Back Pain he has a history of herniated lumbar disk. He uses oxycodone as needed. Review of Systems Constitutional: Positive for fatigue. HENT: Negative for sore throat. Respiratory: Negative for shortness of breath. Cardiovascular: Negative for chest pain. Gastrointestinal: Negative for abdominal pain. Musculoskeletal: Positive for arthralgias and back pain. Skin: Negative for rash. Neurological: Negative for dizziness. BP 140/80 (BP Location: Right arm, Patient Position: Sitting) Pulse 93 Ht 180 cm (5' 10.87 ) Wt 94.3 kg (208 lb) SpO2 96% BMI 29.12 kg/m?? Physical Exam Constitutional: Appearance: He is well-developed. HENT: Head: Normocephalic. Eyes: Pupils: Pupils are equal, round, and reactive to light. Cardiovascular: Rate and Rhythm: Normal rate and regular rhythm. Pulmonary: Effort: Pulmonary effort is normal. Breath sounds: Normal breath sounds. Musculoskeletal: Comments: Pain L4 with palpation. Ambulates with a walker. Feet: Right Foot: Monofilament exam: normal. Protective Sensation: 2 sites tested. 2 sites sensed. Left Foot: Monofilament exam: normal. Protective Sensation: 2 sites tested. 2 sites sensed. Skin: General: Skin is warm. Neurological: Mental Status: He is alert. Assessment/Plan Diagnoses and all orders for this visit: Hypertensive kidney disease with stage 3 chronic kidney disease, unspecified whether stage 3a or 3bCKD (HCC) (I12.9, N18.30) (Primary) Assessment & Plan: Hypertension is controlled. Continue current regimen.Limit nephrotoxins. Monitor creatinine improved to 1.48 on 10/15/20. Order creatinine.. Avoid NSAIDS. Hyperlipidemia associated with type 2 diabetes mellitus (HCC) (E11.69, E78.5) Assessment & Plan: HgbA1C was elevated at 7.8 at last visit. Diabetes is not controlled.Increase Insulin to 20 units and continue Januvia. Reviewed proper diet. Continue statin therapy. Orders: - Lipid panel; Future - Hemoglobin A1c; Future - Albumin Creatinine Ratio, Urine; Future Type 2 diabetes mellitus with other specified complication, with long-term current use of insulin (HCC) (E11.69, Z79.4) Assessment & Plan: Continue insulin. 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 Script for walker. Orders: - Walker Encounter for screening (Z13.9) Therapeutic drug monitoring (Z51.81) - Comprehensive metabolic panel; Future Other orders - BASAGLAR 100 unit/mL (3 mL) pen for injection; Inject 20 units SC daily new dose documented in this encounter Miscellaneous Notes * Assessment & Plan Note - Kraig Ching MD - 12/26/2020 10:48 AM CDT Associated Problem(s): Chronic bilateral low back pain with bilateral sciatica Continue oxycodone. Script for walker. * Assessment & Plan Note - Kraig Ching MD - 12/26/2020 6:29 AM CDT Associated Problem(s): Type 2 diabetes mellitus without complication, with long-term current use ofinsulin ([facility]) (HCC) (Resolved 10/02/2023) Continue insulin. * Assessment & Plan Note - Kraig Ching MD - 12/26/2020 6:28 AM CDT Associated Problem(s): Hyperlipidemia associated with type 2 diabetes mellitus ([facility]) HgbA1C was elevated at 7.8 at last visit. Diabetes is not controlled.Increase Insulin to 20 units and continue Januvia. Reviewed proper diet. Continue statin therapy. * Assessment & Plan Note - Kraig Ching MD - 12/26/2020 6:27 AM CDT Associated Problem(s): Hypertensive kidney disease with chronic kidney disease stage III (HCC) Hypertension is controlled. Continue current regimen.Limit nephrotoxins. Monitor creatinine improved to 1.48 on 10/15/20. Order creatinine.. Avoid NSAIDS. documented in this encounter Plan of Treatment [...] Chronic Care Management No change(03/23 1:47 PM AUDIOLOGY DIRECTOR) No Ingrid Oden, RN Note: Problem: Chronic Pain Goals: 1. Minimize further functional decline 2. Maximize quality of life 3. Control pain Strategies: - Activity/exercise program recommendation - Conservative stepwise pain medicine strategy with multi-disciplinary approach - Recommend healthy lifestyle strategies and compensatory methods as needed documented as of this encounter Results * (ABNORMAL) Albumin Creatinine Ratio, Urine (12/26/2020 11:31 AM CDT) Albumin Ur 209.6 mg/L [facility] Comment: Interpretive Data No reference range established. Current interpretive data was last revised 2018. Creatinine Ur 121.9 mg/dL [facility] Comment: Interpretive Data No reference range established. Current interpretive data was last revised 2018. Albumin Creatinine Ratio, Ur 172(H) 1 - 29 mg/g [facility] Urine 12/26/2020 11:3 1 AM CDT 12/26/2020 2:25 PM CDT us Kraig Ching MD LAB URINE ORDERABLES Final Re sult [facility] [address] [facility] [place] [address] * (ABNORMAL) Hemoglobin A1c (12/26/2020 11:31 AM CDT) Hgb A1C 11.9(H) 4.0 - 5.6 % [facility] Estimated Average Glucose 295 mg/dL [facility] Comment: The ADA recommends reporting an estimated Average Glucose (eAG) with all Hemoglobin A1c results using the equation derived from a study of 507 normal and diabetic adults. ??Minority populations were underrepresented and children were not included. ?? (Diabetes Care 2020; 43(S1): S66-S76). ??The eAG is not equivalent to a fasting glucose. Blood 12/26/2020 11:3 1 AM CDT 12/26/2020 2:25 PM CDT us Kraig Ching MD LAB BLOOD ORDERABLES Final Re sult [facility] [address] [facility] [place] [address] * (ABNORMAL) Lipid panel (12/26/2020 11:31 AM CDT) Cholesterol 263(H) 30 - 199 mg/dL [facility] Comment: Interpretive Data Ages [...] Data was last revised on 2017. Triglycerides 611(H) <=149 mg/dL [facility] Comment: Interpretive Data Ages [...] on 2017. HDL 34(L) >=40 mg/dL [facility] Comment: [...] was last revised on 2017. LDL, calculated See Comment <=129 [facility] Comment: Unable to calculate LDL due to elevated triglyceride. Interpretive Data Ages < or = 19 [...] was last revised on 2017. Non-HDL Cholesterol 229 mg/dL [facility] Comment: Interpretive Data Ages < or = [...] was last revised on 2017. Chol/HDL ratio 8 [facility] Blood 12/26/2020 11:3 1 AM CDT 12/26/2020 2:25 PM CDT Kraig Ching MD LAB BLOOD ORDERABLES Final Re sult [facility] [address] [facility] [place] [address] * (ABNORMAL) Comprehensive metabolic panel (12/26/2020 11:31 AM CDT) Sodium 137 135 - 145 mmol/L [facility] Potassium, pl 3.9 3.3 - 4.9 mmol/L [facility] Chloride 98 97 - 110 mmol/L [facility] CO2 29 22 - 32 mmol/L [facility] Anion gap 10 2 - 15 mmol/L [facility] BUN 37(H) 8 - 25 mg/dL [facility] Creatinine 2.13(H) 0.80 - 1.30 mg/dL [facility] Glucose 221(H) 70 - 199 mg/dL [facility] Comment: Interpretive Data Fasting glucose >/= 126 [...] interpretive data was last revised 2017. Calcium 9.4 8.5 - 10.3 mg/dL [facility] Bilirubin, total 0.5 0.1 - 1.2 mg/dL [facility] Protein, pl 7.0 6.5 - 8.5 g/dL [facility] Albumin 4.1 3.5 - 5.0 g/dL [facility] Alk phos 125 40 - 130 Units/L [facility] ALT 18 7 - 55 Units/L [facility] AST 14 10 - 50 Units/L [facility] Blood 12/26/2020 11:3 1 AM CDT 12/26/2020 2:25 PM CDT Kraig Ching MD LAB BLOOD ORDERABLES Final Re sult [facility] [address] [facility] [place] [address] documented in this encounter Visit Diagnoses Diagnosis Hypertensive kidney disease with stage 3 chronic kidney disease, unspecified whether stage 3a or 3b CKD (HCC)- Primary Hyperlipidemia associated with type 2 diabetes mellitus (HCC) Type 2 diabetes mellitus with other specified complication, with long-term current use of insulin (HCC) Chronic bilateral low back pain with bilateral sciatica Encounter for screening Therapeutic drug monitoring Encounter for therapeutic drug monitoring documented in this encounter Discontinued Medications Medication Sig Discontinue Reason Start Date End Da te BASAGLAR 100 unit/mL (3 mL) pen for injection Inject 16 units SC daily Reorder 09/26/2020 12/26/2020 documented as of this encounter Orders General Supply Count Last Ordered Date First Or dered Date WALKER 1 12/26/2020 documented in this encounter Care Teams Cloth Pattern Maker Relationship Specialty Start Date End Date Kraig Ching MD [address] [facility] [place] [address] PCP - General 07/10/16 Gautam Cope MD [address] [facility] [address] [place] [address] Medical Oncologist/Sales Training Representative Medical Oncology 08/18/18 Tramaine Roe MD [address] [facility] [address] [place] [address] Referring Physician Urology 08/18/18 Sukhwinder Uribe MD [address] [facility] [address] [place] [address] Consulting Physician Urology 08/18/18 Shay Guillermo MD [address] [facility] [place] [address] Referring Physician Urology 08/18/18 Marsha Landis, RN Registered Nurse 11/17/18 documented as of this encounter
--- OUTSIDE RECORDS SUMMARY | 2024-03-31 04:58 | XMS_ITS | Encounter Summary ---
Author Organization [facility] Address [address] [place] [address] Phone Care Team Providers Care Higher Level Teaching Assistant Name Role Phone Kraig Ching MD Primary Care Provider [phone] Gautam Cope MD Unavailable Tramaine Roe MD Unavailable [phone] Sukhwinder Uribe MD Unavailable Shay Guillermo MD Unavailable [phone] Marsha Landis RN Unavailable Unavailab le Reason for Visit * Consultation (Routine) - Authorized Specialty Diagnoses / Procedures Referred By Saleem narvaez Referred To Contact Oncology Diagnoses Prostate cancer (HCC) Tramaine Roe MD [address] [facility] [address] [place] [address] Phone: tel: fax: Gautam Cope MD [address] [facility] [place] [address] Phone: tel: fax: Referral ID Status Reason Start Date Expiration Date Visits Requested Visits Authorized [id number] Authorized Specialty Services Required 08/15/2018 04/11/2024 99 99 Encounter Details Date Type Department Care Team (Late st Contact Info) Description 04/01/2021 10:00 AM GLASS BULB SILVERER Office Visit [facility] Oncology [address] [facility] Advanced [facility] 7th [place] [address] [place] [id number] Gautam Cope MD [address] [facility] [address] [place] [address] Prostate cancer (CMS/HCC) (HCC) Social History Tobacco [...] file Legal Sex Male 4:46 PM GLASS BULB SILVERER Gender Identity Not on file Sexual Orientation Not on file documented as of this encounter Last Filed Vital Signs Vital Sign Reading Time Taken Comments Blood Pressure 165/88 04/01/2021 9:46 AM GLASS BULB SILVERER Pulse 80 04/01/2021 9:44 AM GLASS BULB SILVERER Temperature 36.1 ??C (97 ??F) 04/01/2021 9:4 4 AM GLASS BULB SILVERER Respiratory Rate 18 04/01/2021 9:44 AM GLASS BULB SILVERER Oxygen Saturation 96% 04/01/2021 9:4 4 AM GLASS BULB SILVERER Inhaled Oxygen Concentration - - Weight 95.5 kg (210 lb 9.6 oz) 04/01/2021 9:46 AM GLASS BULB SILVERER pt refused to remove shoes Height - - Body Mass Index 29.48 12/26/2020 10:39 AM CDT documented in this encounter Progress Notes * Gautam Cope MD - 04/01/2021 12:00 AM CST PATIENT NAME: DAVID DREW : 1940 [place]: 04/01/2021 Mr. Drew is an 80-year-old with metastatic prostate cancer. In October 1999, he was noted to havea PSA of 5.5, which prompted a biopsy of his prostate. The biopsy showed [place] 3+ 4 disease, and he underwent a radical prostatectomy performed by Dr. Guillermo. He was found to have [place] 4 + 3 disease with extracapsular extension and positive margin, but no lymph node involvement. He did receive adjuvant radiation therapy, completed in November 1999. In June 2012, 13 years after surgery, he was noted to have a rising PSA. In October 2018, it had risen to the double digit level. An MRI scan in August 2018 suggested local recurrence despite surgery and radiation therapy. Also, further workup showed a metastatic deposit at L2. We met the patient and began Lupron therapy, adding abiraterone and prednisone by October 2018. The patient has responded nicely with an excellent serological response. He does have hot flashes, which do cause some degree of awakening in the night. He continues with lowerback pain and is no longer getting steroid injections because of the effect on his blood glucoses. Kellen nesbitt remains fairly inactive. He admits that some of these are on him, as he has all kinds of excuses for his inactivity. He also admits that he frequently snacks at night, probably leading to poor control of his diabetes. Additional comorbidities include chronic kidney disease, hypertension, paroxysmal atrial fibrillation, and hyperlipidemia. He does remain independent. PHYSICAL EXAMINATION: Vital Signs: Shows a male whose weight is up a little bit at 95.5 kg. His blood pressure is 165/88,pulse is 80. He is afebrile. His O2 saturation is 96%. Performance Status: His performance status is 70%. Nodes: He has no palpable adenopathy. Lungs: Clear to auscultation and percussion. Cardiac: Shows an S1 and S2, with an early systolic murmur. Abdomen: His abdominal exam shows no hepatosplenomegaly or palpable masses. Extremities: No edema. Neurological: Nonfocal. LABORATORY DATA: Laboratories today show a hemoglobin of 12.6, white count 10,200, platelet count 368,000. Additional laboratories include a creatinine of 1.52, with a GFR of 46, and a random nonfasting glucose of 153. At home, he tells me his sugars are generally in the 140 or so range. His A1c today is 10.5. PSA from today is <0.10. IMAGING DATA: The patient came in today because on [facility], he read his imaging tests and was quite concerned. His CT scan does show multiple nodules seen, the largest is about 12 mm and appears to be stable. There is some mild emphysema seen. The patient does have a history of smoking. This scan was compared to the one from a year and a half ago showing no real change in the lung nodules. It was a noncontrast scan, and so we are limited in visceral examination, but there is no clear evidence of metastatic disease. He does have an adrenal cyst and some evidence of diverticulosis. The sclerotic lesion at L2 appears greatly improved. On his bone scan, I have examined these images also, in additionto the CT scan images, and this shows great improvement at L2. 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 ASSESSMENT AND PLAN: 1. Metastatic prostate cancer, currently on Lupron, abiraterone, and prednisone. Scans showed no clear evidence of progressive disease, and in fact show that his L2 disease is improving. We have suggested remaining on his current hormonal therapy. His prostate cancer was diagnosed in 1999 and treated with a radical prostatectomy then adjuvant radiation therapy. A rising PSA was noted in 2012, andmetastatic disease was clearly evident in 2019, when he was started on hormonal therapy. 2. Chronic lower back pain. He is no longer receiving injections. 3. Diabetes. 4. Inactivity. Prostate cancer-encinas, the patient is doing well. He was quite concerned because of reading the CT scan. We emphasized that these are likely low-grade. There has been little change going back several years. In order to continue monitoring him, at his request, we will obtain a noncontrast CT scan of his chest in 6 months. His next bone density will be due in 1 year. ELECTRONICALLY SIGNED - 04/01/2021 06:57 PM Gautam Cope M.D. song plugger GLORIA/lul S BULB SILVERER documented in this encounter Plan of Treatment [...] Care Management No change(03/23 1:47 PM GLASS BULB SILVERER) No Ingrid Oden, SHEA Note: Problem: Chronic [...] Ordered Date ONCBCN CLINIC APPOINTMENT REQUEST 1 021 documented in this encounter Care Teams Higher Level Teaching Assistant Relationship Specialty Start Date End Date Kraig Ching MD [address] [place] [address] PCP - General 07/10/16 Gautam Cope MD [address] [place] [address] Medical Oncologist/Dedenter Medical Oncology 08/18/18 Tramaine Roe MD [address] [place] [address] Referring Physician Urology 08/18/18 Sukhwinder Uribe MD [address] [place] [address] Consulting Physician Urology 08/18/18 Shay Guillermo MD [address] [place] [address] Referring Physician Urology 08/18/18 Marsha Landis, RN Registered Nurse 11/17/18 documented as of this encounter
--- OUTSIDE RECORDS SUMMARY | 2024-03-31 04:58 | XMS_ITS | Encounter Summary ---
Author Organization [facility] Address [address] [place] [address] Phone Care Team Providers Care Special Diet Cook Name Role Phone Kraig Ching MD Primary Care Provider [phone] Gautam Cope MD Unavailable Tramaine Roe MD Unavailable [phone] Sukhwinder Uribe MD Unavailable [phone] Shay Guillermo MD Unavailable [phone] Marsha Landis RN Unavailable Unavailab le Encounter Details Date Type Department Care Team (Late st Contact Info) Description 09/12/2020 Telephone [facility] Nephrology [address] [facility] Advanced Medicine 5th [place] [address] [place] [address] [place] Aragon, RN Social History [...] on file Legal Sex Male 4: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 Scheduled [facility] 09/18/20 at 1pm (owned by [facility]) faxed order [phone] - Called patient with appointment details, advised patient the prep for the US is a full bladder, also reminded patient to get repeat RFP in 2 weeks - order sent to [facility]. documented in this encounter Plan of Treatment [...] to monitor diabetes and kidney status, etc. [facility] Chronic Pain Care Plan Chronic Care Management No change(03/23 1:47 PM LINUX NETWORK SYSTEMS 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) No Ingrid Oedn RN Note: Problem: Chronic Pain Goals: 1. Minimize further functional decline 2. Maximize quality of life 3. Control pain Strategies: - Activity/exercise program recommendation - Conservative stepwise pain medicine strategy with multi-disciplinary approach - Recommend healthy lifestyle strategies and compensatory methods as needed documented as of this encounter Visit Diagnoses Not on filedocumented in this encounter Care Teams Special Diet Cook Relationship Specialty Start Date End Date Kraig Ching MD [address] [facility] [address] [place] [address] PCP - General 07/10/16 Gautam Cope MD [address] [facility] [address] [place] [address] Medical Oncologist/Employment Officer Medical Oncology 08/18/18 Tramaine Roe MD [address] [facility] [address] [place] [address] Referring Physician Urology 08/18/18 Sukhwinder Uribe MD [address] [facility] [address] [place] [address] Consulting Physician Urology 08/18/18 Shay Guillermo MD [address] [facility] [address] [place] [address] Referring Physician Urology 08/18/18 Marsha Landis, RN Registered Nurse 11/17/18 documented as of this encounter
--- OUTSIDE RECORDS SUMMARY | 2024-03-31 04:58 | XMS_ITS | Encounter Summary ---
Author Organization [facility] Address [address] [facility] [address] [place] [address] Care Team Providers Care Intermodal Owner Operator Truck Driver Name Role Phone Kraig Ching MD Primary Care Provider [phone] Gautam Cope MD Unavailable Tramaine Roe MD Unavailable [phone] Sukhwinder Uribe MD Unavailable [phone] Shay Guillermo MD Unavailable [phone] Marsha Landis RN Unavailable Unavailab le Encounter Details Date Type Department Care Team (Late st Contact Info) Description 06/11/2021 Telephone [facility] [address] [facility] [address] [place] [address] Kraig Ching MD [address] [facility] [address] [place], [place] [id number] Social History Tobacco Use Types Packs/Day Years [...] on file Legal Sex Male 4:46 PM UNIFIED COMMUNICATIONS ENGINEER Gender Identity Not on file Sexual Orientation Not on file documented as of this encounter Miscellaneous Notes * Telephone Encounter - Estefany Yen - 06/11/2021 9:43 AM CST David Wei (Garcia: [id number]) Rx #: [id number] NovoLOG FlexPen 100UNIT/ML pen-injectors Request Reference Number: [id number]. NOVOLOG INJ FLEXPEN is approved through 04/11/2022. Your patient may now fill this prescription and it will be covered. IED COMMUNICATIONS ENGINEER documented in this encounter Plan of [...] Chronic Care Management No change(03/23 1:47 PM UNIFIED COMMUNICATIONS ENGINEER) No Ingrid Oden, SHEA Note: Problem: Chronic Pain Goals: 1. Minimize further functional decline 2. Maximize quality of life 3. Control pain Strategies: - Activity/exercise program recommendation - Conservative stepwise pain medicine strategy with multi-disciplinary approach - Recommend healthy lifestyle strategies and compensatory methods as needed documented as of this encounter Visit Diagnoses Not on filedocumented in this encounter Care Teams Intermodal Owner Operator Truck Driver Relationship Specialty Start Date End Date Kraig Ching MD [address] [facility] [address] [place] [address] PCP - General 07/10/16 Gautam Cope MD [address] [place] [address] Medical Oncologist/Sessions Clerk Medical Oncology 08/18/18 Tramaine Roe MD [address] [place] [address] Referring Physician Urology 08/18/18 Sukhwinder Uribe MD [address] [facility] [address] [place] [address] Consulting Physician Urology 08/18/18 Shay Guillermo MD [address] [facility] [address] [place] [address] Referring Physician Urology 08/18/18 Marsha Landis RN Registered Nurse 11/17/18 documented as of this encounter
--- OUTSIDE RECORDS SUMMARY | 2024-03-31 04:58 | XMS_ITS | Encounter Summary ---
Author Organization [facility] Address [address] [place] [address] Phone Care Team Providers Care Hydraulic Plumber Name Role Phone Kraig Ching MD Primary Care Provider [phone] Gautam Cope MD Unavailable Tramaine Roe MD Unavailable [phone] Sukhwinder Uribe MD Unavailable [phone] Shay Guillermo MD Unavailable [phone] Marsha Landis RN Unavailable Unavailab le Encounter Details Date Type Department Care Team (Late st Contact Info) Description 06/21/2021 Orders Only [facility] Oncology [address] [facility] Advanced Medicine 7th [place] [address] [place] [address] Muna Saleem RN Prostate cancer [...] file Legal Sex Male 4:[address] OFFICE ASSISTANT Gender Identity Not on file Sexual [...] Care Management No change(03/23 1:[address] OFFICE ASSISTANT) No Ingrid Oden, RN Note: Problem: Chronic Pain Goals: 1. Minimize further functional decline 2. Maximize quality of life 3. Control pain Strategies: - Activity/exercise program recommendation - Conservative stepwise pain medicine strategy with multi-disciplinary approach - Recommend healthy lifestyle strategies and compensatory methods as needed documented as of this encounter Results * PSA diagnostic (09/16/2021 10:29 AM CDT) PSA-Total <0.02 <=6.20 ng/mL [facility] Comment: Interpretive Data ?AGE ? SEX ?REFERENCE INTERVAL 0 minutes-150 years ?Female ?None 0 minutes-49 years ? Male ?None ? 50-59 years ? Male ?0-3.90 ? 60-69 years ? Male ?0-5.40 ? 70-79 years ? Male ?0-6.20 ? 80-150 years ?Male ?0-6.20 The Admetric PSA Total assay procedure was used. Results from different manufacturers or methods may not be comparable. Serial testing should be performed using the same method. Current interpretive data last revised 21. Blood 09/16/2021 10:2 9 AM CDT 09/16/2021 11:00 AM CDT us Gautam Cope MD LAB BLOOD ORDERABLES Final Resul t [facility] [place] [address] * (ABNORMAL) Comprehensive metabolic panel (09/16/2021 10:29 AM CDT) Sodium 143 135 - 145 mmol/L [facility] Comment:Testing performed by : [facility], [address] [place] [phone] Potassium, pl 4.7 3.3 - 4.9 mmol/L [facility] Comment:Testing performed by : [facility], [address] [place] [phone] Chloride 105 97 - 110 mmol/L [facility] Comment:Testing performed by : [facility], [address] [place] [phone] CO2 30 22 - 32 mmol/L [facility] Comment:Testing performed by : [facility], [address] [place] [phone] Anion gap 8 2 - 15 mmol/L [facility] Comment:Testing performed by : [facility], [address] [place] [phone] BUN 35(H) 8 - 25 mg/dL [facility] Comment:Testing performed by : [facility], [address] [place] [phone] Creatinine 1.60(H) 0.80 - 1.30 mg/dL [facility] Comment:Testing performed by : [facility], [address] [place] [phone] Glucose 113 70 - 199 mg/dL [facility] Comment: Interpretive Data Fasting glucose >/= 126 [...] last revised 2017. Testing performed by: [facility], [address] [place] [phone] Calcium 9.4 8.5 - 10.3 mg/dL [facility] Comment:Testing performed by : [facility], [address] [place] [phone] Bilirubin, total 0.3 0.1 - 1.2 mg/dL [facility] Comment:Testing performed by : [facility], [address] [place] [phone] Protein, pl 6.7 6.5 - 8.5 g/dL [facility] Comment:Testing performed by : [facility], [address] [place] [phone] Albumin 4.2 3.5 - 5.0 g/dL [facility] Comment:Testing performed by : [facility], [address] [place] [phone] Alk phos 123 40 - 130 Units/L [facility] Comment:Testing performed by : [facility], [address] [place] [phone] ALT 11 7 - 55 Units/L [facility] Comment:Testing performed by : [facility], [address] [place] [phone] AST 13 10 - 50 Units/L [facility] Comment:Testing performed by : [facility], [address] [place] [phone] Blood 09/16/2021 10:2 9 AM CDT 09/16/2021 10:33 AM CDT us Gautam Cope MD LAB BLOOD ORDERABLES Final Resul t [facility] [place] [address] * (ABNORMAL) CBC with auto differential (09/16/2021 10:29 AM CDT) WBC 10.4(H) 3.8 - 9.8 K/cumm [facility] Comment:Testing performed by : [facility], [address] [place] [phone] Hgb 12.5(L) 13.8 - 17.2 g/dL [facility] Comment:Testing performed by : [facility], [address] [place], [place] [phone] Hct 37.6(L) 40.7 - 50.3 % [facility] Comment:Testing performed by : [facility], [address] [place], [place] [phone] Plt 354 140 - 440 K/cumm [facility] Comment:Testing performed by : [facility], [address] [place], [place] [phone] MPV 7.9 6.8 - 10.4 fL [facility] Comment:Testing performed by : [place] [phone] RBC 4.27(L) 4.50 - 5.70 M/cumm [facility] Comment:Testing performed by : [place] [phone] MCV 88.0 80.0 - 97.6 fL [facility] Comment:Testing performed by : [facility], [address] [place], [place] [phone] MCH 29.3 26.7 - 33.7 pg [facility] Comment:Testing performed by : [place] [phone] MCHC 33.3 32.7 - 35.5 g/dL [facility] Comment:Testing performed by : [place] [phone] RDW CV 14.6 11.8 - 14.6 % [facility] Comment:Testing performed by : [facility], [address] [place], [place] [phone] NRBC abs 0.00 0.00 - 0.01 K/cumm [facility] Comment:Testing performed by : [place] [phone] Blood 09/16/2021 10:2 9 AM CDT 09/16/2021 10:33 AM CDT us Gautam Cope MD LAB BLOOD ORDERABLES Final Resul t [facility] [place] [address] * Lactate dehydrogenase (LD) (09/16/2021 10:29 AM CDT) Lactate dehydrogenase (LDH) 179 100 - 250 Units/L [facility] Comment:Testing performed by : [facility], [address] [facility] [phone] Blood 09/16/2021 10:2 9 AM CDT 09/16/2021 10:33 AM CDT us Gautam Cope MD LAB BLOOD ORDERABLES Final Resul t Performing Organization Address [facility] Co de Phone Number [facility] [place] [address] documented in this encounter Visit Diagnoses Diagnosis Prostate cancer (HCC)- Primary Malignant neoplasm of prostate documented in this encounter Orders Appointment Requests Count Last Ordered Date Fi rst Ordered Date ONCBCN CLINIC APPOINTMENT REQUEST 1 022 ONCBCN INJECTION APPOINTMENT REQUEST 1 10/2021 ON[facility]N LAB APPOINTMENT 1 09/16/2021 documented in this encounter Care Teams Hydraulic Plumber Relationship Specialty Start Date End Date Kraig Ching MD [address] [facility] [address] [place] [address] PCP - General 07/10/16 Gautam Cope MD [address] [facility] [address] [place] [address] Medical Oncologist/Investment Representative Medical Oncology 08/18/18 Tramaine Roe MD [address] [facility] [address] [place] [address] Referring Physician Urology 08/18/18 Sukhwinder Uribe MD [address] [facility] [address] [place] [address] Consulting Physician Urology 08/18/18 Shay Guillermo MD [address] [facility] [address] [place] [address] Referring Physician Urology 08/18/18 Marsha Landis, RN Registered Nurse 11/17/18 documented as of this encounter
--- OUTSIDE RECORDS SUMMARY | 2024-03-31 04:58 | XMS_ITS | Encounter Summary ---
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 Office Visit [facility] [address] [place] [address] Kraig Ching MD [address] [facility] [address] [place] [address] Hypertensive kidney disease with stage [...] on file Legal Sex 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 Gender Identity Not on file Sexual Orientation Not on file documented as of this encounter Last Filed Vital Signs Vital Sign Reading Time Taken Comments Blood Pressure 140/80 04/08/2021 9:57 AM BOOM TRUCK DRIVER Pulse 86 04/08/2021 9:57 AM BOOM TRUCK DRIVER Temperature - - Respiratory Rate - - Oxygen Saturation 97% 04/08/2021 9:57 AM BOOM TRUCK DRIVER Inhaled Oxygen Concentration - - Weight 95.3 kg (210 lb) 04/08/2021 9:57 AM BOOM TRUCK DRIVER Height 180 cm (5' 10.87 ) 04/08/2021 9:57 AM BOOM TRUCK DRIVER Body Mass Index 29.4 04/08/2021 9:57 AM BOOM TRUCK DRIVER documented in this encounter Ordered Prescriptions Prescription Sig Dispense Quantity Refills Last Filled Start Date End Date insulin aspart (NovoLOG) 100 unit/mL (3 mL) pen for injection Inject 8 Units under the skin 3 (three) times a day before meals 3 mL 11 04/08/2021 04/10/2022 insulin aspart (NovoLOG) 100 unit/mL (3 mL) pen for injection Inject 8 Units under the skin 3 (three) times a day before meals 3 mL 11 04/08/2021 04/08/2021 BASAGLAR 100 unit/mL (3 mL) pen for injection Inject 28 units SC daily new dose 8 mL 3 04/08/2021 04/21/2021 oxyCODONE (ROXICODONE) 5 mg immediate release tabletIndications: Pain Take 1 tablet (5 mg total) by mouth every 6 (six) hours as needed for pain 60 tablet 04/08/2021 08/04/2021 documented in this encounter Progress Notes * Kraig Ching MD - 04/08/2021 9:45 AM CST Subjective/Objective Patient ID: David Wei is a 80 y.o. male. Chief Complaint Hypertension HPI 1.HTN. He is prescribed amlodipine,carvedilol and chlorthalidone. Hypertension is complicated by CKD. His creatinine was 1.54 on 04/01/21. 2.Diabetes. His insulin was increased at last visit. He reports compliance with oral medications. Arecent HgbA1C 04/01/21 was elevated at 10.6.Diabetes is complicated by hyperlipidemia. He is prescribed pravastatin. He is intolerant of atorvastatin. He is taking prednisone daily for prostate cancer. 3.GERD. GERD symptoms are controlled on pantoprazole. 4.Back Pain. 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 At last visit he was prescribed a walker. He uses oxycodone as needed. Review of Systems Constitutional: Negative for fatigue. HENT: Negative for sore throat. Respiratory: Negative for shortness of breath. Cardiovascular: Negative for chest pain. Gastrointestinal: Negative for abdominal pain. Musculoskeletal: Positive for back pain. Skin: Negative for rash. Neurological: Negative for dizziness. BP 140/80 (BP Location: Left arm, Patient Position: Sitting) Pulse 86 Ht 180 cm (5' 10.87 ) Wt 95.3 kg (210 lb) SpO2 97% BMI 29.40 kg/m?? Physical Exam Constitutional: Appearance: He is [...] 1.54 on 04/01/21. Order creatinine.. Avoid NSAIDS. Hyperlipidemia associated with type 2 diabetes mellitus (HCC) (E11.69, E78.5) Assessment & Plan: Reviewed HgBA1C elevated at 10.6 on 04/01/21. Diabetes is not controlled.Increase Insulin to 28 units and continue Januvia. Start Novolin 8 units with meals.Refer to Endocrinology. Reviewed proper diet. Continue statin therapy. Gastroesophageal reflux disease, unspecified whether esophagitis present (K21.9) Assessment & Plan: Reviewed dietary modifications. Continue PPI. 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 Continue home PT exercises. Continue walker. Other orders - oxyCODONE (ROXICODONE) 5 mg immediate release tablet; Take 1 tablet (5 mg total) by mouth every 6(six) hours as needed for pain - BASAGLAR 100 unit/mL (3 mL) pen for injection; Inject 28 units SC daily new dose - insulin aspart (NovoLOG) 100 unit/mL (3 mL) pen for injection; Inject 8 Units under the skin 3 (three) times a day before meals TRUCK DRIVER documented in this encounter Miscellaneous Notes * Assessment & Plan Note - Kraig Ching MD - 04/08/2021 5:55 AM BOOM TRUCK DRIVER Associated Problem(s): Gastroesophageal reflux disease Reviewed dietary modifications. Continue PPI. TRUCK DRIVER * Assessment & Plan Note - Kraig Ching MD - 04/08/2021 5:54 AM BOOM TRUCK DRIVER Associated Problem(s): Chronic bilateral low back pain with bilateral sciatica Continue oxycodone. Continue home PT exercises. Continue walker. TRUCK DRIVER * Assessment & Plan Note - Kraig Ching MD - 04/08/2021 5:54 AM BOOM TRUCK DRIVER Associated Problem(s): Hypertensive kidney disease with chronic kidney disease stage III (HCC) Hypertension is controlled. Continue current regimen.Limit nephrotoxins. Monitor creatinine improved to 1.54 on 04/01/21. Order creatinine.. Avoid NSAIDS. TRUCK DRIVER * Assessment & Plan Note - Kraig Ching MD - 04/08/2021 5:53 AM BOOM TRUCK DRIVER Associated Problem(s): Hyperlipidemia associated with type 2 diabetes mellitus (HCC) Reviewed HgBA1C elevated at 10.6 on 04/01/21. Diabetes is not controlled.Increase Insulin to 28 units and continue Januvia. Start Novolin 8 units with meals.Refer to Endocrinology. Reviewed proper diet. Continue statin therapy. TRUCK DRIVER TRUCK DRIVER TRUCK DRIVER documented in this encounter Plan of Treatment [...] to monitor diabetes and kidney status, etc. [facility] Chronic Pain Care Plan Chronic Care Management No change(03/23 1:47 PM BOOM TRUCK DRIVER) No Ingrid Oden, SHEA Note: Problem: Chronic Pain Goals: 1. Minimize further functional decline 2. Maximize quality of life 3. Control pain Strategies: - Activity/exercise program recommendation - Conservative stepwise pain medicine strategy with multi-disciplinary approach - Recommend healthy lifestyle strategies and compensatory methods as needed documented as of this encounter Visit Diagnoses Diagnosis Hypertensive kidney [...] (six) hours as needed for pain Reorder 02/06/2021 04/08/2021 BASAGLAR 100 unit/mL (3 mL) pen for injection Inject 20 units SC daily new dose Reorder 12/26/2020 04/08/2021 insulin aspart (NovoLOG) 100 unit/mL (3 mL) pen for injection Inject 8 Units under the skin 3 (three) times a day before meals Reorder 04/08/2021 04/08/2021 documented as of this encounter Care Teams General Office Worker Relationship Specialty Start Date End Date Kraig Ching MD [address] [facility] [address] [place] [address] PCP - General 07/10/16 Gautam Cope MD [address] [facility] [address] [place] [address] Medical Oncologist/Car Carder Medical Oncology 08/18/18 Tramaine Roe MD [address] [facility] [address] [place] [address] Referring Physician Urology 08/18/18 Sukhwinder Uribe MD [address] [facility] [address] [place] [address] Consulting Physician Urology 08/18/18 Shay Guillermo MD [id number] [place] [address] Referring Physician Urology 08/18/18 Marsha Landis, RN Registered Nurse 11/17/18 documented as of this encounter
--- OUTSIDE RECORDS SUMMARY | 2024-03-31 04:59 | XMS_ITS | Encounter Summary ---
Author Organization [facility] Address [address] [place] [address] Phone Care Team Providers Care Airframe Design Engineer Name Role Phone Kraig Ching MD Primary Care Provider [phone] Gautam Cope MD Unavailable Tramaine Roe MD Unavailable [phone] Sukhwinder Uribe MD Unavailable [phone] Shay Guillermo MD Unavailable [phone] Marsha Landis RN Unavailable Unavailab le Reason for Visit * Reason Comments Injections * Episode Based Medications (Routine) - Authorized Specialty Diagnoses / Procedures Referred By Contac t Referred To Contact Oncology Diagnoses Prostate cancer (HCC) Procedures IN LEUPROLIDE ACETATE SUSPNSION Leuprolide Every 3 Months - Prostate Gautam Cope MD [address] [facility] [address] [place] [address] Phone: tel: fax: [facility] - [facility]fusion [address] [facility] [address] [place] [address] Referral ID Status Reason Start Date Expiration Date V isits Requested Visits Authorized [id number] Authorized 09/06/2018 07/11/2024 1 50 Encounter Details Date Type Department Care Team (Late st Contact Info) Description 07/23/2020 12:00 PM CDT Infusion [facility] [address] [facility] 7th [place] [id number] Prostate cancer (CMS/HCC) (Primary Dx) Social History [...] on file 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 Allow product to reach room temperature before using.Indications:Prostate cancer (HCC) Given 07/23/2020 11:18 AM CDT 22.5 mg Left Upper Arm documented in this encounter Orders Nursing Count Last Ordered Date First Orde red Date ONCBCN TREATMENT PARAMETERS 2 1 07/23/2020 Appointment Requests Count Last Ordered Date Fi rst Ordered Date ONCBCN INJECTION APPOINTMENT REQUEST 1 07/11 documented in this encounter Care Teams Airframe Design Engineer Relationship Specialty Start Date End Date Kraig Ching MD [address] [facility] [address] [place] [address] PCP - General 07/10/16 Gautam Cope MD [address] [facility] [address] [place] [address] Medical Oncologist/Polisher Numeral Medical Oncology 08/18/18 Tramaine Roe MD [address] [facility] [address] [place] [address] Referring Physician Urology 08/18/18 Sukhwinder Uribe MD [address] [facility] [address] [place] [address] Consulting Physician Urology 08/18/18 Shay Guillermo MD [address] [facility] [address] [place] [address] Referring Physician Urology 08/18/18 Marsha Landis, RN Registered Nurse 11/17/18 documented as of this encounter
--- OUTSIDE RECORDS SUMMARY | 2024-03-31 04:59 | XMS_ITS | Encounter Summary ---
Author Organization [facility] Address [address] [place] [address] Care Team Providers Care Supervisor Audit Clerks Name Role Phone Kraig Ching MD Primary Care Provider Gautam Cope MD Unavailable Tramaine Roe MD Unavailable [phone] Sukhwinder Uribe MD Unavailable [phone] Shay Guillermo MD Unavailable [phone] Marsha Landis RN Unavailable Unavailab le Reason for Visit * Reason Onset Date Comments Jeane Medical question 02/26/2020 Encounter Details Date Type Department Care Team (Late st Contact Info) Description 02/26/2020 Telephone [facility] [address] [facility] [address] [place] [address] Kraig Ching MD [address] 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 He is requesting to change to a phone/video appt. Please advise. Caller's Callback #: [phone] ESSIONAL DRIVER * Telephone Encounter - Clau Bridges - 02/26/2020 8:41 AM CST Patient called regarding his appointment tomorrow with LILIA Del [place], he does not want to come into the office due to the spike in COVID, he os asking f this can be a phone appointment , please call patient to advise ESSIONAL DRIVER documented in this encounter Plan of [...] Chronic Care Management No change(03/23 1:47 PM PROFESSIONAL DRIVER) No Ingrid Oden, SHEA Note: Problem: Chronic Pain Goals: 1. Minimize further functional decline 2. Maximize quality of life 3. Control pain Strategies: - Activity/exercise program recommendation - Conservative stepwise pain medicine strategy with multi-disciplinary approach - Recommend healthy lifestyle strategies and compensatory methods as needed documented as of this encounter Visit Diagnoses Not on filedocumented in this encounter Care Teams Supervisor Audit Clerks Relationship Specialty Start Date End Date Kraig Ching MD [address] [place] [address] PCP - General 07/10/16 Gautam Cope MD [address] [place] [address] Medical Oncologist/Shotblast Operator Medical Oncology 08/18/18 Tramaine Roe MD [address] [address] [place] [address] Referring Physician Urology 08/18/18 Sukhwinder Uribe MD [address] [facility] [address] [place] [address] Consulting Physician Urology 08/18/18 Shay Guillermo MD [address] [facility] [address] [place] [address] Referring Physician Urology 08/18/18 Marsha Landis, RN Registered Nurse 11/17/18 documented as of this encounter
--- OUTSIDE RECORDS SUMMARY | 2024-03-31 04:59 | XMS_ITS | Encounter Summary ---
Author Organization [facility] Address [address] [place] [address] Phone Care Team Providers Care Auto Air Conditioning Installer Name Role Phone Kraig Ching MD Primary Care Provider [phone] Gautam Cope MD Unavailable Tramaine Roe MD Unavailable [phone] Sukhwinder Uribe MD Unavailable [phone] Shay Guillermo MD Unavailable [phone] Marsha Landis RN Unavailable Unavailab le Reason for Visit * Episode Based Medications (Routine) - Authorized Specialty Diagnoses / Procedures Referred By Saleem t Referred To Contact Oncology Diagnoses Prostate cancer (HCC) Procedures MA LEUPROLIDE ACETATE SUSPNSION Leuprolide Every 3 Months - Prostate Gautam Cope MD [address] [facility] [address] [place] [address] Phone: tel: fax: [facility] [address] [facility] [address] [place] [address] Referral ID Status Reason Start Date Expiration Date V isits Requested Visits Authorized [id number] Authorized 09/06/2018 07/11/2024 1 50 Encounter Details Date Type Department Care Team (Late st Contact Info) Description 07/23/2020 11:00 AM CDT Office Visit [facility] [address] [facility] 7th [place] [address] [place] [id number] Beatris Herrmann NP [address] [place] [address] Prostate cancer (CMS/HCC) (Primary Dx) Social History [...] on file Legal 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 Gender Identity Not on file Sexual Orientation Not on file documented as of this encounter Last Filed Vital Signs Vital Sign Reading Time Taken Comments Blood Pressure 113/66 07/23/2020 10:37 AM CDT Pulse 66 07/23/2020 10:37 AM CDT Temperature 36.3 ??C (97.3 ??F) 07/23/2020 10:37 AM C DT Respiratory Rate 18 07/23/2020 10:37 AM CDT Oxygen Saturation 97% 07/23/2020 10:37 AM CDT Inhaled Oxygen Concentration - - Weight 93.4 kg (206 lb) 07/23/2020 10:37 AM CDT Height - - Body Mass Index 28.73 03/27/2020 9:17 AM PARANORMAL INVESTIGATOR documented in this encounter Progress Notes * Beatris Herrmann NP - 07/23/2020 12:00 AM CDT PATIENT NAME: DAVID DREW : 1940 [place]: 07/23/2020 Mr. Drew is a 79-year-old patient of Dr. Cope with metastatic prostate cancer. His prostate cancer dates back to October 1999, when his PSA was 5.5. A prostate biopsy showed Viviana 3 + 4 disease,and the patient underwent a radical prostatectomy was performed by Dr. Guillermo. His pathology showed Viviana 4 + 3 disease with extracapsular extension and a positive margin, but no lymph node involvement. He received adjuvant radiation therapy, completed in November 1999. In June 2012 his PSA was rising, and by October 2018 his PSA was in the double digits. An MRI scan in August 2018 suggested local recurrence, along with an L2 lesion. We met the patient at that time and began Casodex, followed by Lupron, adding abiraterone in October 2018. Mr. Drew remains on Lupron, abiraterone, and prednisone, and his PSA has responded nicely, dropping to a level < 0.1. The patient comes today for further evaluation and another Lupron injection. He is tolerating therapy well. His greatest complaint remains to be chronic lower back pain, and he was followed by the pain specialist, receiving steroid injections at 1 point. At his last visit, we discussed revisiting injections with the pain specialist,but the patient has not, and continues to have problems with finding a ride. He will take an occasional oxycodone prescribed by one of his other physicians, but again this is rare. He denies any difficulty urinating. He takes calcium with vitamin D when he remembers. His other comorbidities include diabetes, chronic kidney disease, hypertension, paroxysmal atrial fibrillation, hyperlipidemia. He denies any tobacco use. At his last visit, there was some weight loss noted, but his weight is stable today. The patient remains independent in his activities of daily living, but otherwise his lifestyle is fairly sedentary. He denies any chest pain, shortness of breath, nausea, vomiting, fever, chills, constipation, diarrhea, or abdominal pain. All other systems are negative. PHYSICAL EXAM: Shows a male whose weight is 93.4 kg. Blood pressure is 113/66, with a pulse of 66. He is afebrile and his oxygen saturation is 97% on room air. His performance status is 70%. Lymph Nodes: No palpable cervical or supraclavicular adenopathy. Cardiac: Shows an S1, S2, with a quiet early systolic murmur. Lungs: Clear to auscultation bilaterally. Abdomen: Soft, nontender, nondistended. No hepatosplenomegaly noted. Bowel sounds are active. Musculoskeletal: WNL. He denies any reproducible pain in his back today. He is able to ambulate on and off the exam table independently. Extremities: Lower extremities show no edema. Neurologic: Nonfocal. LABORATORY: From today shows a hemoglobin of 12.0, platelet count of 378,000. His liver function is normal and his creatinine has climbed to 2.59. His hemoglobin A1C is 7.8. His PSA is < 0.10. IMPRESSION/PLAN: Metastatic prostate cancer, currently on Lupron, abiraterone, and prednisone. Mr. Drew is doing well on this regimen, and his prostate cancer has been under good control. His prostate cancer dates back to 1999 when he was treated with a radical prostatectomy that showed Viviana 7 disease. He received adjuvant radiation therapy and began hormonal therapy in 2018 when there was evidence of local recurrence and an L2 lesion. He did well with hormonal therapy and his PSA has been undetectable since then. We discussed his elevated creatinine today. He is followed by the manager learning and their next appointment is in September. We will see the patient again 3 months from now for further follow-up. We will plan for another setof scans towards the end of the year, but some of this will depend on his PSA trend. He will not bedue for another bone density until after January 2022. Mr. Drew is comfortable with this plan and will call with any issues in between visits. ELECTRONICALLY SIGNED - 07/23/2020 02:07 PM BRANDO Chavez Nurse Practitioner In collaboration with Gautam Cope M.D. My signature confirms I have reviewed the note and agree with the assessment and plan of BRANDO Chavez ELECTRONICALLY SIGNED - 07/23/2020 07:12 PM Gautam Cope M.D. system administrator ISAK/GLORIA/eamon documented in this encounter Plan of Treatment [...] to monitor diabetes and kidney status, etc. [facility] Chronic Pain Care Plan Chronic Care Management No change(03/23 1:47 PM PARANORMAL INVESTIGATOR) No Ingrid Oden, RN Note: Problem: Chronic Pain Goals: 1. Minimize further functional decline 2. Maximize quality of life 3. Control pain Strategies: - Activity/exercise program recommendation - Conservative stepwise pain medicine strategy with multi-disciplinary approach - Recommend healthy lifestyle strategies and compensatory methods as needed documented as of this encounter Results * PSA diagnostic (10/15/2020 10:32 AM CDT) PSA-Total <0.10 <=6.20 ng/mL [facility] Comment: [...] MD LAB BLOOD ORDERABLES Final Resul t [facility] Department of Laboratories [place], [place] [id number] * (ABNORMAL) Comprehensive metabolic panel (10/15/2020 10:32 AM CDT) Sodium 138 135 - 145 mmol/L [facility] Comment:Testing performed by : [facility], [address] [facility] [phone] Potassium, pl 4.2 3.3 - 4.9 mmol/L [facility] Comment:Testing performed by : [facility], [address] [facility] [phone] Chloride 102 97 - 110 mmol/L [facility] Comment:Testing performed by : [facility], [facility] [address] CO2 29 22 - 32 mmol/L [facility] Comment:Testing performed by : [facility], [address] [place] [phone] Anion gap 7 2 - 15 mmol/L [facility] Comment:Testing performed by : [facility], [address] [place] [phone] BUN 35(H) 8 - 25 mg/dL [facility] Comment:Testing performed by : [facility], [address] [place] [phone] Creatinine 1.48(H) 0.80 - 1.30 mg/dL CERNER [facility] Comment:Testing performed by : [facility], [address] [place] [phone] Glucose 187 70 - 199 mg/dL [facility] Comment: Interpretive Data Fasting glucose >/= 126 [...] was last revised 2017. Testing performed by: [facility], [address] [place] [phone] Calcium 9.6 8.5 - 10.3 mg/dL [facility] Comment:Testing performed by : [facility], [address] [place] [phone] Bilirubin, total 0.6 0.1 - 1.2 mg/dL [facility]ER [facility] Comment:Testing performed by : [facility], [address] [place] [phone] Protein, pl 7.1 6.5 - 8.5 g/dL [facility] Comment:Testing performed by : [address] [address] Albumin 4.4 3.5 - 5.0 g/dL [facility] Comment:Testing performed by : [facility], [address] [place] [phone] Alk phos 115 40 - 130 Units/L [facility] Comment:Testing performed by : [facility], [address] [place] [phone] ALT 10 7 - 55 Units/L [facility] Comment:Testing performed by : [facility], [address] [place] [phone] AST 10 10 - 50 Units/L [facility] Comment:Testing performed by : [facility], [address] [place] [phone] Blood specimen (specimen) 10/15/2020 10:32 AM CDT 10/15/2020 10:34 AM CDT us Gautam Cope MD LAB BLOOD ORDERABLES Final Resul t [facility] [place] [address] * (ABNORMAL) CBC with auto differential (10/15/2020 10:32 AM CDT) WBC 11.0(H) 3.8 - 9.8 K/cumm [facility] Comment:Testing performed by : [facility], [address] [place] [phone] Hgb 12.6(L) 13.8 - 17.2 g/dL [facility] Comment:Testing performed by : [facility], [address] [place] [phone] Hct 36.8(L) 40.7 - 50.3 % [facility] Comment:Testing performed by : [facility], [address] [place] [phone] Plt 365 140 - 440 K/cumm [facility] Comment:Testing performed by : [facility], [address] [place] [phone] MPV 7.2 6.8 - 10.4 fL [facility] Comment:Testing performed by : [address] [address] RBC 4.24(L) 4.50 - 5.70 M/cumm [facility] Comment:Testing performed by : [facility], [address] [place] [phone] MCV 86.9 80.0 - 97.6 fL [facility] Comment:Testing performed by : [facility], [address] [place] [phone] MCH 29.7 26.7 - 33.7 pg [facility]LINE [facility] Comment:Testing performed by : [facility], [address] [place] [phone] MCHC 34.1 32.7 - 35.5 g/dL [facility] Comment:Testing performed by : [facility], [address] [place] [phone] RDW CV 14.5 11.8 - 14.6 % [facility] Comment:Testing performed by : [facility], [address] [place] [phone] NRBC abs 0.00 0.00 - 0.01 K/cumm [facility] Comment:Testing performed by : [facility], [address] [place] [phone] Blood specimen (specimen) 10/15/2020 10:32 AM CDT 10/15/2020 10:34 AM CDT us Gautam Cope MD LAB BLOOD ORDERABLES Final Resul t Performing Organization Address City/[facility]/ZIP Co de Phone Number [facility] [place] [address] * Lactate dehydrogenase (LD) (10/15/2020 10:32 AM CDT) Lactate dehydrogenase (LDH) 161 100 - 250 Units/L [facility] Comment:Testing performed by : [facility], [address] [place] [phone] Blood specimen (specimen) 10/15/2020 10:32 AM CDT 10/15/2020 10:34 AM CDT us Gautam Cope MD LAB BLOOD ORDERABLES Final Resul t Performing Organization Address City/[facility]/ZIP Co de Phone Number [facility] Department [place] [address] * (ABNORMAL) Hemoglobin A1c (07/23/2020 10:23 AM CDT) Pathologist [facility] Hgb A1C 7.8(H) 4.0 - 5.6 % [facility] Estimated Average Glucose 177 mg/dL [facility] Comment: The ADA recommends reporting an estimated Average Glucose (eAG) with all Hemoglobin A1c results using the equation derived from a study of 507 normal and diabetic adults. ??Minority populations were underrepresented and children were not included. ?? (Diabetes Care 2020; 4351): 566-576. ??The eAG is not equivalent to a fasting glucose. Blood specimen (specimen) 07/23/2020 10:23 AM CDT 07/23/2020 10:41 AM CDT us Beatris Herrmann NP LAB BLOOD ORDERABLES Final Resul t [facility] Department [place] [address] * (ABNORMAL) Comprehensive metabolic panel (07/23/2020 10:23 AM CDT) [facility] Sodium 138 135 - 145 mmol/L [facility] Comment:Testing performed by : [facility], [address] [place] [phone] Potassium, pl 3.9 3.3 - 4.9 mmol/L [facility] Comment:Testing performed by : [facility], [address] [place] [phone] Chloride 102 97 - 110 mmol/L [facility] Comment:Testing performed by : [facility], [address] [place] [phone] CO2 28 22 - 32 mmol/L [facility] Comment:Testing performed by : [facility], [address] [place] [phone] Anion gap 9 2 - 15 mmol/L [facility] Comment:Testing performed by : [facility], [address] [place] [phone] BUN 43(H) 8 - 25 mg/dL [facility] Comment:Testing performed by : [facility], [address] [place] [phone] Creatinine 2.59(H) 0.80 - 1.30 mg/dL [facility] Comment:Testing performed by : [facility], [address] [place] [phone] Glucose 99 70 - 199 mg/dL [facility] Comment: [...] was last revised 2017. Testing performed by: [facility], [address] [place], [place] [phone] Calcium 9.1 8.5 - 10.3 mg/dL [facility] Comment:Testing performed by : [address] [address] Bilirubin, total 0.3 0.1 - 1.2 mg/dL [facility] Comment:Testing performed by : [address] [phone] Protein, pl 6.9 6.5 - 8.5 g/dL [facility] Comment:Testing performed by : [address] [address] Albumin 4.2 3.5 - 5.0 g/dL [facility] Comment:Testing performed by : [address] [address] Alk phos 120 40 - 130 Units/L [facility] Comment:Testing performed by : [place] [phone] ALT 12 7 - 55 Units/L [facility] Comment:Testing performed by : [place] [id number] AST 14 10 - 50 Units/L [facility] Comment:Testing performed by : [facility], [address] [facility] [phone] Blood specimen (specimen) 07/23/2020 10:23 AM CDT 07/23/2020 10:24 AM CDT us Gautam Cope MD LAB BLOOD ORDERABLES Final Resul t Performing Organization Address City/State/[facility] Co de Phone Number [facility] [place] [address] documented in this encounter Visit Diagnoses Diagnosis Prostate cancer (HCC)- Primary Malignant neoplasm of prostate documented in this encounter Orders Appointment Requests Count Last Ordered Date Fi rst Ordered Date [facility] CLINIC APPOINTMENT REQUEST 2 021 07/23/2020 [facility] INJECTION APPOINTMENT REQUEST 1 09/2020 [facility] LAB APPOINTMENT 1 10/15/2020 documented in this encounter Care Teams Auto Air Conditioning Installer Relationship Specialty Start Date End Date Kraig Ching MD [address] [facility] [address] [place] [address] PCP - General 07/10/16 Gautam Cope MD [address] [facility] [address] [place] [address] Medical Oncologist/Theology Teacher Medical Oncology 08/18/18 Tramaine Roe MD [address] [facility] [address] [place] [address] Referring Physician Urology 08/18/18 Sukhwinder Uribe MD [address] [facility] [address] [place] [address] Consulting Physician Urology 08/18/18 Shay Guillermo MD [address] [facility] [address] [place] [address] Referring Physician Urology 08/18/18 Marsha Landis, RN Registered Nurse 11/17/18 documented as of this encounter
--- OUTSIDE RECORDS SUMMARY | 2024-03-31 04:59 | XMS_ITS | Encounter Summary ---
Author Organization [facility] [employer] [facility] Address [address] [place] [address] Phone Care Team Providers Care Instructor Industrial Design Name Role Phone Kraig Ching MD Primary Care Provider Gautam Cope MD Unavailable Tramaine Roe MD Unavailable [phone] Sukhwinder Uribe MD Unavailable [phone] Shay Guillermo MD Unavailable [phone] Marsha Landis RN Unavailable Unavailab le Reason for Visit * Episode Based Medications (Routine) - Authorized Specialty Diagnoses / Procedures Referred By Saleem t Referred To Contact Oncology Diagnoses Prostate cancer (HCC) Procedures [place] LEUPROLIDE ACETATE SUSPNSION Leuprolide Every 3 Months - Prostate Gautam Cope MD [address] [facility] [address] [place] [address] Phone: tel: fax: [facility] - [facility]fusion [address] [facility] Floor 5 [place] [address] Referral ID Status Reason Start Date Expiration Date V isits Requested Visits Authorized [id number] Authorized 09/06/2018 07/11/2024 1 50 Encounter Details Date Type Department Care Team (Late st Contact Info) Description 02/06/2020 9:45 AM CDT Lab [facility] Oncology [address] [facility] 7th [place] [address] [place] [address] Examination of participant in clinical trial (Primary Dx); Prostate cancer ([facility]/HCC) Social History Tobacco Use Types Packs/Day Years [...] all 04/21/2019 PHQ-2 Answer Date Recorded PHQ-2 Score 2 01/17/2019 Hunger Vital Sign Answer Date Recorded Worried [...] on file 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 [facility] Chronic Pain Care Plan Chronic Care Management No change(03/23 1:47 PM MANGANESE WHEELER) No Ingrid Oden, SHEA Note: Problem: Chronic Pain Goals: 1. Minimize further functional decline 2. Maximize quality of life 3. Control pain Strategies: - Activity/exercise program recommendation - Conservative stepwise pain medicine strategy with multi-disciplinary approach - Recommend healthy lifestyle strategies and compensatory methods as needed documented as of this encounter Procedures Procedure Name Priority Date/Time Associated Diagnosis Comments DIFFERENTIAL AUTO Routine 02/06/2020 9:5 8 AM CDT Prostate cancer (CMS/HCC) CBC WITH AUTO DIFFERENTIAL Routine 02/06/2020 9:58 AM CDT Prostate cancer (CMS/HCC) PSA DIAGNOSTIC Routine 02/06/2020 9:58 AM CDT Prostate cancer (CMS/HCC) LACTATE DEHYDROGENASE Routine 02/06/2020 9:58 AM CDT Prostate cancer (CMS/HCC) COMPREHENSIVE METABOLIC PANEL Routine 02/06/2020 9:58 AM CDT Prostate cancer (CMS/HCC) HEMOGLOBIN A1C Routine 02/06/2020 8:58 AM CDT Prostate cancer (CMS/HCC) documented in this encounter Results * (ABNORMAL) Differential, auto (02/06/2020 9:58 AM CDT) Neutrophil abs 10.6(H) 1.8 - 6.6 K/cumm [facility] Comment:Testing performed by : [facility], [address] [place] [phone] Lymphocyte abs 1.4 1.2 - 3.3 K/cumm [facility] Comment:Testing performed by : [facility], [address] [place] [phone] Monocyte abs 0.9 0.2 - 1.2 K/cumm [facility] Comment:Testing performed by : [facility], [address] [place] [phone] Eosinophil abs 0.1 0.0 - 0.5 K/cumm [facility] Comment:Testing performed by : [facility], [address] [place] [phone] Basophil abs 0.1 0.0 - 0.2 K/cumm [facility] Comment:Testing performed by : [facility], [address] [place] [phone] Neutrophil pct 81.4 % [facility] Comment: Interpretive Data Percent cell count reference ranges are not reported, since discordance with absolute values may lead to misinterpretation of CBC data. Current Interpretive Data was last revised on 2017. Testing performed by: [facility], [address] [place] [phone] Lymphocyte pct 10.4 % [facility] Comment: Interpretive Data Percent cell count reference ranges are not reported, since discordance with absolute values may lead to misinterpretation of CBC data. Current Interpretive Data was last revised on 2017. Testing performed by: [facility], [address] [place] [phone] Monocyte pct 6.6 % [facility] Comment:Testing performed by : [facility], [address] [place] [address] Eosinophil pct 1.0 % [facility] Comment:Testing performed by : [facility], [address] [place] [address] Basophil pct 0.6 % [facility] Comment:Testing performed by : [facility], [address] [place] [phone] Blood specimen (specimen) 02/06/2020 9:58 AM CDT 02/06/2020 10:00 AM CDT Gautam Cope MD LAB BLOOD ORDERABLES Final Resul t Performing Organization Address [facility] Co de Phone Number [facility] [place] [address] * Lactate dehydrogenase (LD) (02/06/2020 9:58 AM CDT) [facility] Lactate dehydrogenase (LDH) 167 100 - 250 Units/L [facility] Comment:Testing performed by : [facility], [address] [place] [phone] Blood specimen (specimen) 02/06/2020 9:58 AM CDT 02/06/2020 10:00 AM CDT Gautam Cope MD LAB BLOOD ORDERABLES Final Resul t Performing Organization Address [facility] de Phone Number [facility] [place] [address] * (ABNORMAL) CBC with auto differential (02/06/2020 9:58 AM CDT) [facility] WBC 13.0(H) 3.8 - 9.8 K/cumm [facility] Comment:Testing performed by : [facility], [address] [place] [phone] Hgb 12.4(L) 13.8 - 17.2 g/dL [facility] Comment:Testing performed by : [facility], [address] [place] [phone] Hct 37.6(L) 40.7 - 50.3 % [facility] Comment:Testing performed by : [facility], [address] [place] [phone] Plt 390 140 - 440 K/cumm [facility] Comment:Testing performed by : [facility], [address] [place] [phone] MPV 7.4 6.8 - 10.4 fL [facility] Comment:Testing performed by : [address] [phone] RBC 4.21(L) 4.50 - 5.70 M/cumm [facility] Comment:Testing performed by : [facility], [address] [place] [phone] MCV 89.4 80.0 - 97.6 fL [facility] Comment:Testing performed by : [facility], [address] [place] [address] MCH 29.5 26.7 - 33.7 pg [facility] Comment:Testing performed by : [facility], [address] [place] [address] MCHC 33.0 32.7 - 35.5 g/dL [facility] Comment:Testing performed by : [facility], [address] [place] [address] RDW CV 13.9 11.8 - 14.6 % [facility] Comment:Testing performed by : [facility], [address] [place] [phone] NRBC abs 0.01 0.00 - 0.01 K/cumm [facility] Comment:Testing performed by : [facility], [address] [place] [phone] Blood specimen (specimen) 02/06/2020 9:58 AM CDT 02/06/2020 10:00 AM CDT us Gautam Cope MD LAB BLOOD ORDERABLES Final Resul t [facility] Department of Laboratories [place], [place] [id number] * (ABNORMAL) Comprehensive metabolic panel (02/06/2020 9:58 AM CDT) Sodium 137 135 - 145 mmol/L [facility] Comment:Testing performed by : [facility], [address] [place] [phone] Potassium, pl 4.3 3.3 - 4.9 mmol/L [facility] Comment:Testing performed by : [address] [address] Chloride 100 97 - 110 mmol/L [facility] Comment:Testing performed by : [facility], [address] [place] [address] CO2 29 22 - 32 mmol/L [facility] Comment:Testing performed by : [facility], [address] [place] [phone] Anion gap 8 2 - 15 mmol/L [facility] Comment:Testing performed by : [facility], [address] [place] [phone] BUN 36(H) 8 - 25 mg/dL [facility] Comment:Testing performed by : [facility], [address] [place] [address] Creatinine 1.80(H) 0.80 - 1.30 mg/dL [facility] Comment:Testing performed by : [facility], [address] [place] [address] Glucose 208(H) 70 - 199 mg/dL [facility] Comment: [...] revised 2017. Testing performed by: [facility], [address] [place] [phone] Calcium 9.5 8.5 - 10.3 mg/dL [facility] Comment:Testing performed by : [facility], [address] [place] [address] Bilirubin, total 0.3 0.1 - 1.2 mg/dL [facility] Comment:Testing performed by : [facility], [address] [place] [phone] Protein, pl 6.9 6.5 - 8.5 g/dL [facility] Comment:Testing performed by : [facility], [address] [place] [phone] Albumin 4.2 3.5 - 5.0 g/dL [facility] Comment:Testing performed by : [facility], [address] [facility] [phone] Alk phos 111 40 - 130 Units/L [facility] Comment:Testing performed by : [facility], [address] [place] [phone] ALT 12 7 - 55 Units/L [facility] Comment:Testing performed by : [facility], [address] [place] [address] AST 11 10 - 50 Units/L [facility] Comment:Testing performed by : [facility], [address] [place] [phone] Blood specimen (specimen) 02/06/2020 9:58 AM CDT 02/06/2020 10:00 AM CDT us Gautam Cope MD LAB BLOOD ORDERABLES Final Resul t Performing Organization Address City/State/[facility] Co de Phone Number [facility] Department [place] [address] * PSA diagnostic (02/06/2020 9:58 AM CDT) PSA-Total <0.10 <=6.20 ng/mL [facility] Comment: Interpretive Data ?AGE ? SEX ?REFERENCE INTERVAL 0 minutes-150 years ?Female ?None 0 minutes-49 years ? Male ?None ? 50-59 years ? Male ?0-3.90 ? 60-69 years ? Male ?0-5.40 ? 70-79 years ? Male ?0-6.20 ? 80-150 years ?Male ?0-6.20 Current interpretive data last revised 2017. Blood specimen (specimen) 02/06/2020 9:58 AM CDT 02/06/2020 10:13 AM CDT Gautam Cope MD LAB BLOOD ORDERABLES Final Resul t Performing Organization Address [facility] de Phone Number [facility] Department [place] [address] * (ABNORMAL) Hemoglobin A1c (02/06/2020 8:58 AM CDT) Hgb A1C 9.0(H) 4.0 - 5.6 % [facility] Estimated Average Glucose 212 mg/dL [facility] Comment: The ADA recommends reporting an estimated Average Glucose (eAG) with all Hemoglobin A1c results using the equation derived from a study of 507 normal and diabetic adults. ??Minority populations were underrepresented and children were not included. ?? (Diabetes Care 31:7599-4581, 2008). ??The eAG is not equivalent to a fasting glucose. Blood specimen (specimen) 02/06/2020 8:58 AM CDT 02/06/2020 10:14 AM CDT Gautam Cope MD LAB BLOOD ORDERABLES Final Resul t Performing Organization Address [facility] de Phone Number [facility] Department [place] [address] documented in this encounter Visit Diagnoses Diagnosis Examination of participant in clinical trial- Primary Prostate cancer (HCC) Malignant neoplasm of prostate documented in this encounter Orders Lab Orders Without Results Count Last Ordered D ate First Ordered Date ONCBCN STUDY LAB 1 1 02/06/2020 Appointment Requests Count Last Ordered Date Fi rst Ordered Date ONCBCN LAB APPOINTMENT 1 02/06/2020 documented in this encounter Care Teams Instructor Industrial Design Relationship Specialty Start Date End Date Kraig Ching MD [address] [facility] [address] [place] [address] PCP - General 07/10/16 Gautam Cope MD [address] [facility] [address] [place] [address] Medical Oncologist/Eyelet Operator Medical Oncology 08/18/18 Tramaine Roe MD [address] [facility] [address] [place] [address] Referring Physician Urology 08/18/18 Sukhwinder Uribe MD [address] [facility] [address] [place] [address] Consulting Physician Urology 08/18/18 Shay Guillermo MD [address] [facility] [place] [address] Referring Physician Urology 08/18/18 Marsha Landis, RN Registered Nurse 11/17/18 documented as of this encounter
--- OUTSIDE RECORDS SUMMARY | 2024-03-31 04:59 | XMS_ITS | Encounter Summary ---
Author Organization [facility] [employer] [facility] Address [address] [place] [address] Phone Care Team Providers Care Budget Examiner Name Role Phone Kraig Ching MD Primary Care Provider [phone] Gautam Cope MD Unavailable Tramaine Roe MD Unavailable [phone] Sukhwinder Uribe MD Unavailable [phone] Shay Guillermo MD Unavailable [phone] Marsha Landis RN Unavailable Unavailab le Reason for Visit * Episode Based Medications (Routine) - Authorized Specialty Diagnoses / Procedures Referred By Saleem t Referred To Contact Oncology Diagnoses Prostate cancer (HCC) Procedures [place] LEUPROLIDE ACETATE SUSPNSION Leuprolide Every 3 Months - Prostate Gautam Cope MD [address] [facility] [address] [place] [address] Phone: tel: fax: [facility] - Infusion [address] [facility] [address] 5 [place] [address] Referral ID Status Reason Start Date Expiration Date V isits Requested Visits Authorized [id number] Authorized 09/06/2018 07/11/2024 1 50 Encounter Details Date Type Department Care Team (Late st Contact Info) Description 02/06/2020 11:30 AM CDT Infusion [facility] Oncology [address] [facility] 7th [place] [phone] Prostate cancer (CMS/HCC) (Primary Dx) Social History [...] file 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 Return appointments given. Patient discharged ambulatory. documented in this encounter Plan of Treatment [...] and kidney status, etc. [facility] Chronic Pain Care Plan Chronic Care Management No change(03/23 1:47 PM DIRECTOR COLLEGE) No Ingrid Oden RN Note: Problem: Chronic [...] 22.5 mg 22.5 mg, subcutaneous, Once, On Wed02/06/20 at 1115, For 1 dose, Allow to reach room temperature prior to usingIndications:Prostat e cancer (HCC) Given 02/06/2020 11:04 AM CDT 22.5 mg Right Lower Abdomen documented in this encounter Orders Nursing Count Last Ordered Date First Orde red Date ONCBCN TREATMENT PARAMETERS 2 1 02/06/2020 Appointment Requests Count Last Ordered Date Fi rst Ordered Date ONCBCN INJECTION APPOINTMENT REQUEST 1 01/11 documented in this encounter Care Teams Budget Examiner Relationship Specialty Start Date End Date Kraig Ching MD [address] [place] [address] PCP - General 07/10/16 Gautam Cope MD [id number] [place] [address] Medical Oncologist/Cable Weaver Medical Oncology 08/18/18 Tramaine Roe MD [address] [address] Referring Physician Urology 08/18/18 Sukhwinder Uribe MD [address] [address] Consulting Physician Urology 08/18/18 Shay Guillermo MD [id number] [place] [address] Referring Physician Urology 08/18/18 Marsha Landis, RN Registered Nurse 11/17/18 documented as of this encounter
--- OUTSIDE RECORDS SUMMARY | 2024-03-31 04:59 | XMS_ITS | Encounter Summary ---
Author Organization [facility] Address [address] [place] [address] Care Team Providers Care Flotation Tank Operator Name Role Phone Kraig Ching MD Primary Care Provider [phone] Gautam Cope MD Unavailable Tramaine Roe MD Unavailable [phone] Sukhwinder Uribe MD Unavailable [phone] Shay Guillermo MD Unavailable [phone] Marsha Landis RN Unavailable Unavailab le Reason for Visit * Reason Comments Abdominal Pain Encounter Details Date Type Department Care Team (Late st Contact Info) Description 03/27/2020 10:15 AM [facility] Telemedicine [facility] [address] [place] [id number] Katherine Del Rio PA [address] [facility] [facility] [facility] [address] [place] [address] Medicare annual wellness visit, subsequent (Primary Dx); Type 2 diabetes mellitus with stage 3 chronic kidney disease, without long-term current use of insulin, unspecified whether stage 3a or 3b CKD (CMS/HCC); Essential hypertension; Hyperlipidemia associated with type 2 diabetes mellitus (CMS/HCC); PAF (paroxysmal atrial fibrillation) (CMS/HCC); Prostate cancer (CMS/HCC); Spinal stenosis of lumbar region with neurogenic claudication Social History Tobacco Use Types Packs/Day Years [...] on file Legal Sex Male 4:46 PM CIVIL ENGINEERING DRAFTER Gender Identity Not on file Sexual Orientation Not on file documented as of this encounter Last Filed Vital Signs Vital Sign Reading Time Taken Comments Blood Pressure 145/78 03/27/2020 9:17 AM CIVIL ENGINEERING DRAFTER Pulse 67 03/27/2020 9:17 AM CIVIL ENGINEERING DRAFTER Temperature 36.2 ??C (97.2 ??F) 03/27/2020 9:17 AM CS T Respiratory Rate - - Oxygen Saturation - - Inhaled Oxygen Concentration - - Weight 93 kg (205 lb) 03/27/2020 9:17 AM CIVIL ENGINEERING DRAFTER Height 180.3 cm (5' 11 ) 03/27/2020 9:17 AM CIVIL ENGINEERING DRAFTER Body Mass Index 28.59 03/27/2020 9:17 AM CIVIL ENGINEERING DRAFTER documented in this encounter Patient Instructions * Patient Instructions* Katherine Del Rio PA - 03/27/2020 10:15 AM CIVIL ENGINEERING DRAFTER Health Maintenance Topics with due status: Overdue Topic Date Due DTaP/Tdap/Td Vaccine 11/08/1951 Zoster Vaccines 1990 Pneumococcal (PCV13 & PPSV23) 65+ yrs High Risk 01/12/2019 Dilated Eye Exam 06/30/2019 Pneumococcal (PCV13 & PPSV23) 65+ yrs 11/18/2019 Regular Well Visit/Exam 01/18/2020 Health Maintenance Topics with due status: Not Due Topic Last Completion Date Urine Microalbumin 05/22/2019 Lipid Panel 12/07/2019 Hemoglobin A1C 02/06/2020 Foot Exam 02/27/2020 Fall Risk Assessment 03/27/2020 Depression Screening-PHQ 03/27/2020 Health Maintenance Topics with due status: Completed Topic Last Completion Date Influenza Vaccine 02/06/2020 L ENGINEERING DRAFTER documented in this encounter Progress Notes * Katherine Del Rio PA - 03/27/2020 10:15 AM CST MEDICARE SUBSEQUENT ANNUAL WELLNESS VISIT David Wei This was a telemedicine visit with David Wei and his which took place via Real-time video connection ([employer], [employer] or similar). During the visit, I was located at home and the patient was located at home. The session started at 1013 and ended at 1048. The patient has been informed that the visit may not be secure and acknowledged the information. I have explained the option of participating in a telephone or video visit during the [facility] public health emergency to the patient. After being given an opportunity to ask questions about and discuss this type of visit, the patient verbally consented to proceeding with the telephone / video visit. The patient understands that this service replaces an office visit and they may be billed and/or responsible for any applicable copayments. Medicare Health Risk Assessment has been completed by the patient and scanned into the Media section of the chart. HPI This is his annual Medicare wellness visit. He had an episode of severe abdominal pain 2 weeks ago. It was described as generalized and was associated with anorexia and nausea. He thought it might be acute pancreatitis, which he has had before. The pain lasted ~24 hours. He had diarrhea for a few days following the pain resolution. No associated fever, vomiting or hematochezia. Symptoms have fully resolved. 1. T2DM. Uncontrolled. Complicated by CKD, stage 3. He is prescribed Lantus, januvia and Metformin.Last A1c 9.0 and Cr 1.80. Fasting blood sugars have been running in the 110s. He has been limiting dietary carbs. He is current with dilated eye exam. He will have the bridge opener's office send us a report. 2. Atrial fibrillation. Denies palpitations, SOB/GARCIA or LE swelling. 3. HLD. Compliant with pravastatin. Last LDL 145. 4. HTN. He is prescribed amlodipine, lisinopril, chlorthalidone and carvedilol. Home BP has been running in the 180-190/80-90. Hypertension is complicated by CKD. ??His creatinine was improved to 1.65 on 12/07/19. His rad tech titrated amlodipine to 10 mg 3 weeks ago. Current BP 145/70. 5. Back Pain. He has DJD and a herniated disk. He follows with pain management. He needs a [employer]. 6. Prostate cancer. ??Originally diagnosed in 1999. He is s/p surgery and radiation. Currently on lupron, abiraterone and prednisone. Last PSA <0.10. Followed by oncology. HM. Due for pneumovax and shingrix Problem List, Past Medical and Surgical History: Patient Active Problem List Diagnosis ??? Essential hypertension ??? Type 2 diabetes mellitus with stage 3 chronic kidney disease, without long- term current use of insulin (CMS/HCC) ??? Hyperlipidemia ??? Hyperlipidemia associated with type 2 diabetes mellitus (CMS/HCC) ??? Vitamin D deficiency ??? Inflamed seborrheic keratosis ??? Actinic keratosis ??? Benign neoplastic disease ??? Angioma ??? Allergy to statin medication ??? Tobacco use ??? PAF (paroxysmal atrial fibrillation) (CMS/HCC) ??? COPD (chronic obstructive pulmonary disease) (CMS/HCC) ??? CRD (chronic renal disease), stage III (CMS/HCC) ??? 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 Duodenal ulcer ??? Chronic diastolic heart failure (CMS/HCC) ??? Shortness of breath ??? SBO (small bowel obstruction) (CMS/HCC) ??? Prostate cancer (CMS/HCC) ??? Spinal stenosis of lumbar region with neurogenic claudication ??? Sciatica, left side ??? Chronic bilateral low back pain with bilateral sciatica ??? Secondary hyperparathyroidism of renal origin (CMS/HCC) Past Medical History: Diagnosis Date ??? A-fib (CMS/HCC) ??? Anemia ??? Chronic pain disorder ??? Diabetes (CMS/HCC) ??? Diverticulitis ??? Esophageal stricture ??? GERD (gastroesophageal reflux disease) ??? HTN (hypertension) ??? Low back pain ??? Multiple gastric ulcers ??? Pancreatitis ??? Prostate CA (CMS/HCC) w/ radiation post surgery ??? Renal disease 40% functioning Past Surgical History: Procedure Laterality Date ??? CHOLECYSTECTOMY ??? OTHER SURGICAL HISTORY 1998 Extensive abdominal surgery [place] Pancreatic abcess/pancreatitis ??? PROSTATECTOMY 2000 Family History: Family History Problem Relation Age of Onset ??? Diabetes type II Other Diabetes mellitus type 2; ??? Hypertension Other Hypertension; ??? Kidney failure Mother ??? Dementia Father Social History: Social History Socioeconomic History ??? Marital status: Spouse name: Not on file ??? Number of children: Not on file ??? Years of education: Not on file ??? Highest education level: Not on file Occupational History ??? Not on file Social Needs ??? Financial resource strain: Not hard at all ??? Food insecurity Worry: Patient refused Inability: Patient refused ??? Transportation needs Medical: Patient refused Non-medical: Patient refused Tobacco Use ??? Smoking status: Former Smoker ??? Smokeless tobacco: Never Used ??? Tobacco comment: Smoking History Packs/day: 10 Cigarettes Substance and Sexual Activity ??? Alcohol use: Yes Comment: Occasional glass of wine. ??? Drug use: Not Currently ??? Sexual activity: Defer Lifestyle ??? Physical activity Days per week: Not on file Minutes per session: Not on file ??? Stress: Not on file Relationships ??? Social connections Talks on phone: Not on file Gets together: Not on file Attends jew service: Not on file Active member of club or organization: Not on file Attends meetings of clubs or organizations: Not on file Relationship status: Not on file ??? Intimate partner violence Fear of current or ex partner: Not on file Emotionally abused: Not on file Physically abused: Not on file Forced sexual activity: Not on file Other Topics Concern ??? Not on file Social History Narrative ??? Not on file Allergies: Allergies Allergen Reactions ??? Atorvastatin Muscle pain Medications: Current Outpatient Medications: ??? Accu-Chek Fastclix Lancet Drum mis, TEST BLOOD SUGAR TWICE DAILY, Disp: 204 each, Rfl: 1 ??? amLODIPine (NORVASC) 10 mg tablet, Take 1 tablet (10 mg total) by mouth nightly, Disp: 90 tablet, Rfl: 1 ??? aspirin 81 mg tablet, Take 1 tablet (81 mg total) by mouth daily., Disp: 30 tablet, Rfl: 11 ??? Edmund Parry U-100 Insulin 100 unit/mL (3 mL) insulin pen, Inject 14 Units under the skin daily Reports changed to [id number] UNITS UNDER THE SKIN DAILY UTD., Disp: 1 pen, Rfl: 11 ??? BD Ultra-Fine Short Pen Needle 31 gauge x 5/16 needle, USE DIRECTED TO INJECT INSULIN ONCE DAILY, Disp: 100 each, Rfl: 0 ??? blood glucose diagnostic strip, , Disp: , Rfl: ??? carvediloL (COREG) 12.5 mg tablet, Take 1 tablet (12.5 mg total) by mouth 2 (two) times a day with meals, Disp: 120 tablet, Rfl: 2 ??? chlorthalidone 25 mg tablet, Take 1 tablet (25 mg total) by mouth daily, Disp: 30 tablet, Rfl: 11 ??? gabapentin (NEURONTIN) 100 mg capsule, TAKE 2 CAPSULES(200 MG) BY MOUTH EVERY NIGHT, Disp: 60 capsule, Rfl: 3 ??? Januvia 25 mg tablet, TAKE 1 TABLET BY MOUTH DAILY, Disp: 30 tablet, Rfl: 11 ??? lisinopriL (PRINIVIL,ZESTRIL) 20 mg tablet, TAKE 1 TABLET(20 MG) BY MOUTH DAILY, Disp: 30 tablet, Rfl: 5 ??? metFORMIN (GLUCOPHAGE) 500 mg tablet, TAKE 1 TABLET(500 MG) BY MOUTH TWICE DAILY WITH MEALS, Disp: 180 tablet, Rfl: 2 ??? ONETOUCH ULTRA BLUE TEST STRIP strip, TEST SUGAR TWICE DAILY, Disp: 100 each, Rfl: 3 ??? oxyCODONE (ROXICODONE) 5 mg immediate release tablet, Take 1 tablet (5 mg total) by mouth every6 (six) hours as needed for pain, Disp: 28 tablet, Rfl: 0 ??? pantoprazole DR (PROTONIX) 40 mg EC tablet, TAKE 1 TABLET(40 MG) BY MOUTH DAILY (Patient takingdifferently: Take 40 mg by mouth daily ), Disp: 90 tablet, Rfl: 1 ??? pravastatin (PRAVACHOL) 20 mg tablet, TAKE 1 TABLET BY MOUTH EVERY DAY, Disp: 90 tablet, Rfl: 1 ??? predniSONE (DELTASONE) 5 mg tablet, 5 mg 2 (two) times a day , Disp: , Rfl: ??? TRAVATAN Z 0.004 % drops, INT 1 DROP INTO OU QHS, Disp: , Rfl: 5 ??? abiraterone (ZYTIGA) 250 mg tablet, Take 4 tablets (1,000 mg) by mouth daily. Do not eat anything for at least 2 hours before and for at least 1 hour after, Disp: 120 tablet, Rfl: 5 Vitals: Vitals BP 145/78 (BP Location: Left arm, Patient Position: Sitting) Pulse 67 Temp 36.2 ??C (97.2 ??F) (Temporal) Ht 180.3 cm (5' 11 ) Wt 93 kg (205 lb) BMI 28.59 kg/m?? Body mass index is 28.59 kg/m??. Exam: Physical Exam Constitutional: Appearance: Normal appearance. HENT: Head: Normocephalic and atraumatic. Pulmonary: Effort: Pulmonary effort is normal. Neurological: Mental Status: He is alert and oriented to person, place, and time. Psychiatric: Attention and Perception: Attention normal. Mood and Affect: Mood and affect normal. Thought Content: Thought content normal. Cognition and Memory: He exhibits impaired recent memory. Care Team Providers: Patient Care Team: Kraig Ching MD as PCP - General Picus, MD Gautam as Medical Oncologist/Chief Deputy Coroner (Medical Oncology) Tramaine Roe MD as Referring Physician (Urology) Sukhwinder Uribe MD as Consulting Physician (Urology) Shay Guillermo MD as Referring Physician (Urology) Marsha Landis RN as Registered Nurse Primary Pharmacy/DME suppliers: [id number] - [place], [place] - [address] AT [facility] ([place] [address] [facility] [id number] [facility] [place], [place] - [address] [facility] [address] [facility] [address] Detection of Cognitive Impairment: The patient does have cognitive impairment based on direct observation, discussion with patient or family, or review of medical records. Health Maintenance: Health Maintenance Topics with due status: Overdue Topic Date Due DTaP/Tdap/Td Vaccine 11/08/1951 Zoster Vaccines 1990 Pneumococcal (PCV13 & PPSV23) 65+ yrs High Risk 01/12/2019 Dilated Eye Exam 06/30/2019 Pneumococcal (PCV13 & PPSV23) 65+ yrs 11/18/2019 Health Maintenance Topics with due status: Not Due Topic Last Completion Date Urine Microalbumin 05/22/2019 Lipid Panel 12/07/2019 Hemoglobin A1C 02/06/2020 Foot Exam 02/27/2020 Fall Risk Assessment 03/27/2020 Depression Screening-PHQ 03/27/2020 Regular Well Visit/Exam 03/27/2020 Health Maintenance Topics with due status: Completed Topic Last Completion Date Influenza Vaccine 02/06/2020 Counseling and Referral of Preventative Services: Lifestyle Recommendations continue healthy diet, Increase Physical Activity, Stop Using Tobacco, Reduce Weight and Improve Diet Advanced Directive Durable Power of AttorneyNo Living Will No Assessment and Plan: Diagnoses and all orders for this visit: Medicare annual wellness visit, subsequent (Primary) Comments: Annual health screening status reviewed. He plans to get the pneumovax and shingrix at his pharmacy. Type 2 diabetes mellitus with stage 3 chronic kidney disease, without long-term current use of insulin, unspecified whether stage 3a or 3b CKD (CMS/[facility]) Comments: Uncontrolled. Home blood sugars suggest improving glycemic control. Continue current medications and low carb diet. He will have his most recent eye exam piyush Orders: - Albumin Creatinine Ratio, Urine; Future Essential hypertension Comments: Close to goal. Continue current medications and management per nephrology. Hyperlipidemia associated with type 2 diabetes mellitus (CMS/[facility]) Comments: Recent lipid pane reviewed. Intolerant of high potency statins. Continue pravastatin. PAF (paroxysmal atrial fibrillation) (CMS/HCC) Comments: Asymptomatic. Prostate cancer (CMS/[facility]) Comments: Continue management per oncology. Spinal stenosis of lumbar region with neurogenic claudication Comments: Handicap placard request completed. Continue to follow with Pain Management Patient here for annual Medicare wellness visit and for review of complete medical problem list. All the elements of the plan were completed as outlined by CMS. A copy of the prevention plan was given to the patient. I reviewed Medicare Wellness Questionnaire (other physicians involved in care, depression screen, advanced directives), cognitive/memory, and functional assessment. Forms scanned in progress notes. I reviewed and updated the complete problem list, medication list, family history, and immunization records with the patient. I provided preventive counseling and early detection interventions to the patient through health maintenance update and summary of today's office visit. L ENGINEERING DRAFTER L ENGINEERING DRAFTER documented in this encounter Plan of Treatment Scheduled Orders Name Type Priority Associated Diagnoses Orde r Schedule Albumin Creatinine Ratio, Urine Lab Routine Type 2 diabetes mellitus with stage 3 chronic kidney disease, without long-term current use of insulin, unspecified whether stage 3a or 3b CKD ([facility]) 1 Occurrences starting 03/27/2020 until 03/27/2021 documented as of this encounter Goals Goal [...] monitor diabetes and kidney status, etc. [facility] Chronic Pain Care Plan Chronic Care Management No change(03/23 1:47 PM CIVIL ENGINEERING DRAFTER) Ingrid Mcdaniels, RN Note: Problem: Chronic Pain Goals: 1. Minimize further functional decline 2. Maximize quality of life 3. Control pain Strategies: - Activity/exercise program recommendation - Conservative stepwise pain medicine strategy with multi-disciplinary approach - Recommend healthy lifestyle strategies and compensatory methods as needed documented as of this encounter Visit Diagnoses Diagnosis Medicare annual wellness visit, subsequent- Primary Type 2 diabetes mellitus with stage 3 chronic kidney disease, without long-term current use of insulin, unspecified whether stage 3a or 3b CKD (HCC) Essential hypertension Unspecified essential hypertension Hyperlipidemia associated with type 2 diabetes mellitus (HCC) PAF (paroxysmal atrial fibrillation) (CMS/HCC) (HCC) Atrial fibrillation Prostate cancer (HCC) Malignant neoplasm of prostate Spinal stenosis of lumbar region with neurogenic claudication documented in this encounter Care Teams Flotation Tank Operator Relationship Specialty Start Date End Date Kraig Ching MD [address] [place] [address] PCP - General 07/10/16 Gautam Cope MD [address] [place] [address] Medical Oncologist/Chief Deputy Coroner Medical Oncology 08/18/18 Tramaine Roe MD [address] [place] [address] Referring Physician Urology 08/18/18 Sukhwinder Uribe MD [address] [place] [address] Consulting Physician Urology 08/18/18 Shay Guillermo MD [address] [place] [address] Referring Physician Urology 08/18/18 Marsha Landis, RN Registered Nurse 11/17/18 documented as of this encounter
--- OUTSIDE RECORDS SUMMARY | 2024-03-31 04:59 | XMS_ITS | Encounter Summary ---
Author Organization [facility] Address [address] [place] [address] Care Team Providers Care Docking Pilot Name Role Phone Kraig Ching MD Primary Care Provider [phone] Gautam Cope MD Unavailable Tramaine Roe MD Unavailable [phone] Sukhwinder Uribe MD Unavailable [phone] Shay Guillermo MD Unavailable [phone] Marsha Landis RN Unavailable Unavailab le Encounter Details Date Type Department Care Team (Late st Contact Info) Description 04/10/2020 Telephone [facility] [address] [facility] [address] [place] [address] Stanley Delacruz MA Social History Tobacco Use Types Packs/Day Years [...] on file Legal Sex Male 4:46 PM POST ACUTE CARE NURSE PRACTITIONER Gender Identity Not on file Sexual Orientation Not on file documented as of this encounter Miscellaneous Notes * Telephone Encounter - Katherine Del Rio PA - 04/11/2020 5:42 PM POST ACUTE CARE NURSE PRACTITIONER noted ACUTE CARE NURSE PRACTITIONER * Telephone Encounter - Stanley Delacruz MA - 04/10/2020 3:23 PM CST T/c to pt to check and see if he has faxed over dilated eye exam report. He stated he has already contacted the facility about a wk ago. I stated we have not received a report. He stated he would call and have them fax it to our office again ACUTE CARE NURSE PRACTITIONER * Telephone Encounter - Stanley Delacruz MA - 04/10/2020 3:22 PM CST ----- Message from Stanley Delacruz MA sent at 03/28/2020 8:05 AM POST ACUTE CARE NURSE PRACTITIONER ----- Regarding: Dilated Eye Exam Check in e/ pt to see if dilated eye exam work has been faxed over ACUTE CARE NURSE PRACTITIONER documented in this encounter Plan of Treatment [...] to monitor diabetes and kidney status, etc. [facility] Chronic Pain Care Plan Chronic Care Management No change(03/23 1:47 PM POST ACUTE CARE NURSE PRACTITIONER) No Ingrid Oden, SHEA Note: Problem: Chronic Pain Goals: 1. Minimize further functional decline 2. Maximize quality of life 3. Control pain Strategies: - Activity/exercise program recommendation - Conservative stepwise pain medicine strategy with multi-disciplinary approach - Recommend healthy lifestyle strategies and compensatory methods as needed documented as of this encounter Visit Diagnoses Not on filedocumented in this encounter Care Teams Docking Pilot Relationship Specialty Start Date End Date Kraig Ching MD [address] [facility] [address] [place] [address] PCP - General 07/10/16 [place] [address] [place] [address] [address] [place] [address] Medical Oncologist/Service Manager Medical Oncology 08/18/18 [place] [address] [place] [address] [address] [place] [address] Referring Physician Urology 08/18/18 Sukhwinder Uribe MD [address] [facility] [address] [place] [address] Consulting Physician Urology 08/18/18 Shay Guillermo MD [address] [facility] [address] [place] [address] Referring Physician Urology 08/18/18 Marsha Landis RN Registered Nurse 11/17/18 documented as of this encounter
--- OUTSIDE RECORDS SUMMARY | 2024-03-31 04:59 | XMS_ITS | Encounter Summary ---
Author Organization [facility] Medical [facility] Address [address] [place] [address] Care Team Providers Care Porcelain Finish Sprayer Name Role Phone Kraig Ching MD Primary Care Provider [phone] Gautam Cope MD Unavailable Tramaine Roe MD Unavailable [phone] Sukhwinder Uribe MD Unavailable [phone] Shay Guillermo MD Unavailable [phone] Marsha Landis RN Unavailable Unavailab le Reason for Visit * Reason Onset Date Comments Dr. Ching-medical question 03/27/2020 Encounter Details Date Type Department Care Team (Late st Contact Info) Description 03/27/2020 Telephone [facility] [address] [facility] [address] [place] [address] MA [address] Hoffman-medical question Social History Tobacco Use Types Packs/Day [...] on file Legal Sex Male 4:46 PM WOOD TANK ERECTOR Gender Identity Not on file Sexual Orientation Not on file documented as of this encounter Miscellaneous Notes * Telephone Encounter - DinaMariana - 03/27/2020 9:01 AM CST Spoke to pt. Told him MANNIE Angel would be calling him back. TANK ERECTOR * Telephone Encounter - Ingrid Baldwin - 03/27/2020 8:56 AM CST Call Back-Resolved Inquiry Caller's Concern: Patient is calling [place] back. Warm transferred to back line. TANK ERECTOR * Telephone Encounter - Stanley Delacruz MA - 03/27/2020 8:43 AM CST Attempted to call pt at [phone] to get vitals, health history and fill in pt's chart for telemed visit w/ Rajani ESQUIVEL. Pt did not answer. LMOVM advising pt to call office back at [phone] TANK ERECTOR documented in this encounter Plan of Treatment [...] Chronic Care Management No change(03/23 1:47 PM WOOD TANK ERECTOR) No Ingrid Oden RN Note: Problem: Chronic Pain Goals: 1. Minimize further functional decline 2. Maximize quality of life 3. Control pain Strategies: - Activity/exercise program recommendation - Conservative stepwise pain medicine strategy with multi-disciplinary approach - Recommend healthy lifestyle strategies and compensatory methods as needed documented as of this encounter Visit Diagnoses Not on filedocumented in this encounter Care Teams Porcelain Finish Sprayer Relationship Specialty Start Date End Date Kraig Ching MD [address] [facility] [address] [place] [address] PCP - General 07/10/16 Gautam Cope MD [address] [facility] [address] [place] [address] Medical Oncologist/Skinner Pelts Medical Oncology 08/18/18 Tramaine Roe MD [address] [facility] [address] [place] [address] Referring Physician Urology 08/18/18 Sukhwinder Uribe MD [address] [facility] [address] [place] [address] Consulting Physician Urology 08/18/18 Shay Guillermo MD [address] [facility] [address] [place] [address] Referring Physician Urology 08/18/18 Marsha Landis, RN Registered Nurse 11/17/18 documented as of this encounter
--- OUTSIDE RECORDS SUMMARY | 2024-03-31 04:59 | XMS_ITS | Encounter Summary ---
Author Organization [facility] Medical [facility] Address [address] [facility] [address] [place] [address] Care Team Providers Care Payment Processor Name Role Phone Kraig Ching MD Primary Care Provider [phone] Gautam Cope MD Unavailable Tramaine Roe MD Unavailable [phone] Sukhwinder Uribe MD Unavailable [phone] Shay Guillermo MD Unavailable [phone] Marsha Landis RN Unavailable Unavailab le Encounter Details Date Type Department Care Team (Late st Contact Info) Description 04/03/2020 Orders Only [facility] [address] [facility] [address] [place] [id number] Kraig Ching MD [address] [facility] [address] [place], [place] [id number] Social History Tobacco Use Types Packs/Day Years [...] on file 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 Minimize further functional decline 2. Maximize quality of life 3. Control pain Strategies: - Activity/exercise program recommendation - Conservative stepwise pain medicine strategy with multi-disciplinary approach - Recommend healthy lifestyle strategies and compensatory methods as needed documented as of this encounter Visit Diagnoses Not on filedocumented in this encounter Care Teams Payment Processor Relationship Specialty Start Date End Date Kraig Ching MD [address] [place] [address] PCP - General 07/10/16 Gautam Cope MD [address] [place] [address] Medical Oncologist/Speech Pathology Assistant Medical Oncology 08/18/18 Tramaine Roe MD [address] [place] [address] Referring Physician Urology 08/18/18 Sukhwinder Uribe MD [address] [place] [address] Consulting Physician Urology 08/18/18 Shay Guillermo MD [address] [facility] [address] [place] [address] Referring Physician Urology 08/18/18 Marsha Landis, RN Registered Nurse 11/17/18 documented as of this encounter
--- OUTSIDE RECORDS SUMMARY | 2024-03-31 04:59 | XMS_ITS | Encounter Summary ---
Author Organization [facility] Medical Group Address [address] [facility] [address] [place] [address] Care Team Providers Care General Inspector Name Role Phone Kraig Ching MD Primary Care Provider [phone] Gautam Cope MD Unavailable Tramaine Roe MD Unavailable [phone] Sukhwinder Uribe MD Unavailable [phone] Shay Guillermo MD Unavailable [phone] Marsha Landis RN Unavailable Unavailab le Reason for Visit * Reason Onset Date Comments Dr. Ching-medical question 04/03/2020 Encounter Details Date Type Department Care Team (Late st Contact Info) Description 04/03/2020 Telephone [facility] [address] [facility] [address] [place] [address] Kraig Ching MD [address] [facility] [address] [place] [address] Dr. 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 Advised we did not receive a request and this isn't on the active list. Understood. She states this hadn't been filled since August and she thinks he was taken off of this. She is deleting the request. END SPINNING OPERATOR documented in this encounter Plan of [...] Care Management No change(03/23 1:47 PM OPEN END SPINNING OPERATOR) No Ingrid Oden, SHEA Note: Problem: Chronic Pain Goals: 1. Minimize further functional decline 2. Maximize quality of life 3. Control pain Strategies: - Activity/exercise program recommendation - Conservative stepwise pain medicine strategy with multi-disciplinary approach - Recommend healthy lifestyle strategies and compensatory methods as needed documented as of this encounter Visit Diagnoses Not on filedocumented in this encounter Care Teams General Inspector Relationship Specialty Start Date End Date Kraig Ching MD [address] [facility] [address] [place] [address] PCP - General 07/10/16 Gautam Cope MD [address] [place] [address] Medical Oncologist/Thermal Spray Operator Medical Oncology 08/18/18 Tramaine Roe MD [address] [facility] [address] [place] [address] Referring Physician Urology 08/18/18 Sukhwinder Uribe MD [address] [facility] [address] [place] [address] Consulting Physician Urology 08/18/18 Shay Guillermo MD [address] [facility] [address] [place] [address] Referring Physician Urology 08/18/18 Marsha Landis, RN Registered Nurse 11/17/18 documented as of this encounter
--- OUTSIDE RECORDS SUMMARY | 2024-03-31 04:59 | XMS_ITS | Encounter Summary ---
Author Organization [facility] Address [address] [place] [address] Phone Care Team Providers Care Director It Name Role Phone Kraig Ching MD Primary Care Provider [phone] Gautam Cope MD Unavailable Tramaine Roe MD Unavailable [phone] Sukhwinder Uribe MD Unavailable [phone] Shay Guillermo MD Unavailable [phone] Marsha Landis RN Unavailable Unavailab le Reason for Visit * Reason Comments Injections * Episode Based Medications (Routine) - Authorized Specialty Diagnoses / Procedures Referred By Contac t Referred To Contact Oncology Diagnoses Prostate cancer (HCC) Procedures [place] LEUPROLIDE ACETATE SUSPNSION Leuprolide Every 3 Months - Prostate Gautam Cope MD [address] [facility] [address] [place] [address] Phone: tel: fax: [facility] - Infusion [address] [facility] [address] [place] [address] Referral ID Status Reason Start Date Expiration Date V isits Requested Visits Authorized [id number] Authorized 09/06/2018 07/11/2024 1 50 Encounter Details Date Type Department Care Team (Late st Contact Info) Description 04/30/2020 11:30 AM BLOCK CABLEMAN Infusion [facility] Oncology [address] 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 Ambulatory at discharge. K CABLEMAN documented in this encounter Plan of Treatment [...] to monitor diabetes and kidney status, etc. [facility] Chronic Pain Care Plan Chronic Care Management No change(03/23 1:47 PM BLOCK CABLEMAN) No Ingrid Oden, SHEA Note: Problem: Chronic [...] 22.5 mg 22.5 mg, subcutaneous, Once, On Wed04/30/20 at 1200, For 1 dose, For subcutaneous use only. Allow product to reach room temperature before using.Indications:Prosta te cancer (HCC) Given 04/30/2020 11:42 AM BLOCK CABLEMAN 22.5 mg Right Lower Abdomen documented in this encounter Orders Nursing Count Last Ordered Date First Orde red Date ONCBCN TREATMENT PARAMETERS 2 1 04/30/2020 Appointment Requests Count Last Ordered Date Fi rst Ordered Date ONCBCN INJECTION APPOINTMENT REQUEST 1 04/12 documented in this encounter Care Teams Director It Relationship Specialty Start Date End Date Kraig Ching MD [address] [facility] [address] [place] [address] PCP - General 07/10/16 Gautam Cope MD [address] [facility] [address] [place] [address] Medical Oncologist/Environmental Sampling Technician Medical Oncology 08/18/18 Tramaine Roe MD [address] [facility] [address] [place] [address] Referring Physician Urology 08/18/18 Sukhwinder Uribe MD [address] [facility] [address] [place] [address] Consulting Physician Urology 08/18/18 Shay Guillermo MD [address] [facility] [address] [place] [address] Referring Physician Urology 08/18/18 Marsha Landis, RN Registered Nurse 11/17/18 documented as of this encounter
--- OUTSIDE RECORDS SUMMARY | 2024-03-31 04:59 | XMS_ITS | Encounter Summary ---
Author Organization [facility] Medical Group Address [address] [facility] [address] [place] [address] Care Team Providers Care Snow Shoveler Name Role Phone Kraig Ching MD Primary Care Provider [phone] Gautam Cope MD Unavailable Tramaine Roe MD Unavailable [phone] Sukhwinder Uribe MD Unavailable [phone] Shay Guillermo MD Unavailable [phone] Marsha Landis RN Unavailable Unavailab le Reason for Visit * Reason Onset Date Comments Med Refill 07/03/2020 Encounter Details Date Type Department Care Team (Late st Contact Info) Description 07/03/2020 Telephone [facility] [address] [facility] [address] [place] [address] Kraig Ching MD [address] 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 1 pen 11 07/03/2020 documented in this encounter Miscellaneous Notes * Telephone Encounter - Kellen Patten MA - 07/03/2020 12:05 PM CDT Refill sent documented in this encounter Plan of Treatment [...] to monitor diabetes and kidney status, etc. [facility] Chronic Pain Care Plan Chronic Care Management No change(03/23 1:47 PM BABY ATTENDANT) No Ingrid Oden RN Note: Problem: Chronic [...] Discontinue Reason Start Date End Da te Basaglar KwikPen U-100 Insulin 100 unit/mL (3 mL) insulin pen Inject 14 Units under the skin daily Reports changed to [id number] UNITS UNDER THE SKIN DAILY UTD. Reorder 10/10/2019 07/03/2020 documented as of this encounter Historical Medications * This list may reflect changes made after this encounter. Medication Sig Dispense Quantity Refills Last Filled Start D ate End Date carvediloL (COREG) 6.25 mg tablet 05/10/2020 09/11/2020 added in this encounter Care Teams Snow Shoveler Relationship Specialty Start Date End Date Kraig Ching MD [address] [address] [place] [address] PCP - General 07/10/16 Gautam Cope MD [address] [facility] [address] [place] [address] Medical Oncologist/Prevention Specialist Medical Oncology 08/18/18 Tramaine Roe MD [address] [facility] [address] [place] [address] Referring Physician Urology 08/18/18 Sukhwinder Uribe MD [address] [facility] [address] [place] [address] Consulting Physician Urology 08/18/18 Shay Guillermo MD [address] [facility] [address] [place] [address] Referring Physician Urology 08/18/18 Marsha Landis, RN Registered Nurse 11/17/18 documented as of this encounter
--- OUTSIDE RECORDS SUMMARY | 2024-03-31 04:59 | XMS_ITS | Encounter Summary ---
Author Organization [facility] Address [address] [place] [address] Phone Care Team Providers Care Videographer Name Role Phone Kraig Ching MD Primary Care Provider [phone] Gautam Cope MD Unavailable Tramaine Roe MD Unavailable [phone] Sukhwinder Uribe MD Unavailable [phone] Shay Guillermo MD Unavailable [phone] Marsha Landis RN Unavailable Unavailab Reason for Visit * Reason Onset Date Comments Allscripts reminder 08/15/2020 Encounter Details Date Type Department Care Team (Late st Contact Info) Description 08/15/2020 Documentation [facility] Gastroenterology [address] [facility] Advanced Medicine 8th [place] [address] [place] [address] Cindy Valdes LPN Allscripts reminder Social History Tobacco Use Types Packs/Day Years [...] on file 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 Our records do not indicatethat pt has had repeat procedure. Letter mailed to pt, PCP cc'd. Reminder moved to [facility] Open Access Procedure Pool. documented in this encounter Plan of Treatment [...] to monitor diabetes and kidney status, etc. [facility] Chronic Pain Care Plan Chronic Care Management No change(03/23 1:47 PM SEMICONDUCTOR WAFER INSPECTOR) No Ingrid Oden, SHEA Note: Problem: Chronic Pain Goals: 1. Minimize further functional decline 2. Maximize quality of life 3. Control pain Strategies: - Activity/exercise program recommendation - Conservative stepwise pain medicine strategy with multi-disciplinary approach - Recommend healthy lifestyle strategies and compensatory methods as needed documented as of this encounter Visit Diagnoses Not on filedocumented in this encounter Care Teams Videographer Relationship Specialty Start Date End Date Kraig Ching MD [address] [facility] [address] [place] [address] PCP - General 07/10/16 Gautam Cope MD [address] [facility] [address] [place] [address] Medical Oncologist/Director Of Event Marketing Medical Oncology 08/18/18 [place] [address] [place] [address] [address] [place] [address] Referring Physician Urology 08/18/18 Sukhwinder Uribe MD [address] [facility] [address] [place] [address] Consulting Physician Urology 08/18/18 Shay Guillermo MD [address] [facility] [address] [place] [address] Referring Physician Urology 08/18/18 Marsha Landis, RN Registered Nurse 11/17/18 documented as of this encounter
--- OUTSIDE RECORDS SUMMARY | 2024-03-31 04:59 | XMS_ITS | Encounter Summary ---
Author Organization [facility] Address [address] [place] [address] Phone Care Team Providers Care Video Arcade Manager Name Role Phone Kraig Ching MD Primary Care Provider [phone] Gautam Cope MD Unavailable Tramaine Roe MD Unavailable [phone] Sukhwinder Uribe MD Unavailable [phone] Shay Guillermo MD Unavailable [phone] Marsha Landis RN Unavailable Unavailab le Reason for Visit * Reason Onset Date Comments Illness 03/22/2020 Encounter Details Date Type Department Care Team (Late st Contact Info) Description 03/22/2020 Telephone [facility] Oncology [address] [place] [address] Cheyanne Philip RN Illness Social History Tobacco Use Types Packs/Day Years [...] on file 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 He said that he never experienced such pain since I had the pancreatitis years ago. He plans to restart all meds andfocus on regaining strength through eating and drinking. Aracely phoned. Starting Sat 03/16 he developed severe low abdominal pain and diarrhea. He was queezy without vomiting. No fever. This reminded him of the pain of his pancreatitis 20 years ago when he almost . She also reports that he is staying in bed a lot of the day and eating less than 1000 calories/day. He stopped taking his Abiraterone because he thought that it was contributing to his distress. He has a Telemed appt with his PCP next 03/27 to evaluate. I advised that it is understandable that he is holding the Abiraterone while he is so sick. Get that out of the equation so to speak. I'll call next after the PCP visit to check on him. ENT FINISHER ENT FINISHER documented in this encounter Plan of Treatment [...] to monitor diabetes and kidney status, etc. [facility] Chronic Pain Care Plan Chronic Care Management No change(03/23 1:47 PM GARMENT FINISHER) No Ingrid Oden, SHEA Note: Problem: Chronic Pain Goals: 1. Minimize further functional decline 2. Maximize quality of life 3. Control pain Strategies: - Activity/exercise program recommendation - Conservative stepwise pain medicine strategy with multi-disciplinary approach - Recommend healthy lifestyle strategies and compensatory methods as needed documented as of this encounter Visit Diagnoses Not on filedocumented in this encounter Care Teams Video Arcade Manager Relationship Specialty Start Date End Date Kraig Ching MD [address] [place], [place] [id number] PCP - General 07/10/16 Gautam Cope MD [address] [facility] [address] [place] [address] Medical Oncologist/Venture Capital Analyst Medical Oncology 08/18/18 Tramaine Roe MD [address] [facility] [address] [place] [address] Referring Physician Urology 08/18/18 Sukhwinder Uribe MD [address] [facility] [address] [place] [address] Consulting Physician Urology 08/18/18 Shay Guillermo MD [address] [facility] [address] [place] [address] Referring Physician Urology 08/18/18 Marsha Landis, RN Registered Nurse 11/17/18 documented as of this encounter
--- OUTSIDE RECORDS SUMMARY | 2024-03-31 04:59 | XMS_ITS | Encounter Summary ---
Author Organization [facility] [employer] of [facility] Address [address] [place] [address] Phone Care Team Providers Care Electrical Mechanic Name Role Phone Kraig Ching MD Primary Care Provider [phone] Gautam Cope MD Unavailable Tramaine Roe MD Unavailable [phone] Sukhwinder Uribe MD Unavailable [phone] Shay Guillermo MD Unavailable [phone] Marsha Landis RN Unavailable Unavailab le Encounter Details Date Type Department Care Team (Late st Contact Info) Description 03/13/2020 10:30 AM CITY CARRIER Telemedicine [facility] Nephrology [address] [facility] Advanced Medicine 5th [place] [address] [place] [address] Stage 3a chronic kidney disease (Primary Dx); hypertension; Vitamin D deficiency Social History Tobacco Use [...] on file Legal Sex Male 4:46 PM CITY CARRIER Gender Identity Not on file Sexual Orientation Not on file documented as of this encounter Last Filed Vital Signs Vital Sign Reading Time Taken Comments Blood Pressure 194/84 03/13/2020 10:00 AM CITY CARRIER Pulse - - Temperature 36.7 ??C (98.1 ??F) 03/13/2020 10:[address] Respiratory Rate - - Oxygen Saturation - - Inhaled Oxygen Concentration - - Weight 93.9 kg (207 lb) 03/13/2020 10:00 AM CITY CARRIER Height - - Body Mass Index 28.35 12/14/2019 11:01 AM CDT documented in this encounter Patient Instructions * Patient Instructions* Marie Harkins MD - 03/13/2020 10:30 AM CITY CARRIER We have increased your amlodipine to 10 mg daily (from 2.5 mg daily) due to elevated BP. Prescription has been sent to your pharmacy. CARRIER documented in this encounter Ordered Prescriptions Prescription Sig Dispense Quantity Refills Last Filled Start Date End Date amLODIPine (NORVASC) 10 mg tabletIndications: Hypertensive kidney disease with chronic kidney disease stage III (HCC) Take 1 tablet (10 mg total) by mouth nightly 90 tablet 1 03/13/2020 1 documented in this encounter Progress Notes * Marie Harkins MD - 03/13/2020 10:30 AM CST NEPHROLOGY SUBSEQUENT OFFICE VISIT NOTE NAME: DAVID DREW DATE OF : 1940 DATE OF VISIT: 03/13/2020 MEDICAL PROBLEM LIST: 1. CKD stage 3 likely secondary to diabetes mellitus and hypertension 2. COPD 3. Paroxysmal atrial fibrillation, Xarelto on hold 4. Type II diabetes mellitus, not on insulin, last A1C 7.3 in 08/2017 5. Essential Hypertension 6. Dyslipidemia 7. Pancreatitis in 1999 8. Duodenal Ulcer, EGD 10/2017 9. Prostate Cancer in 1999, [id number], status post radical prostatectomy with subsequent external beam radiation therapy. Now with rising PSA and newly discovered spinal metastasis, meeting with oncology on 09/06/2018 REASON FOR OFFICE VISIT: Follow up for CKD INTERVAL HISTORY: Mr. David Drew is a 79 year-old gentleman who returns for follow up of his CKD stage III. He was last seen in the renal clinic in 11/2019. Since last visit, he has developed back pain limiting his mobility and is waiting to be seen by pain management. Ongoing issue has been with BP control, as high as 180 systolic in recent past while he is taking all prescribed medications.Additionally, he was newly started on amlodipine 2.5 mg daily by his PCP. He has followed closely with Oncology for management of metastatic prostate cancer. He was started on hormonal therapy in October of 2018 and remains on Lupron, abiraterone and prednisone and is tolerating treatment well. He denies any chest pain, SOB, nausea, vomiting, fever, chills, lower extremity swelling, or urinary symptoms. No sick contacts or travel history. He denies use of NSAIDs. REVIEW OF SYSTEMS: All other systems are negative. MEDICATIONS: Medication Sig ??? amLODIPine (NORVASC) 2.5 mg tablet Take 1 tablet by mouth nightly ??? aspirin 81 mg tablet Take 1 tablet (81 mg total) by mouth daily. ??? carvediloL (COREG) 12.5 mg tablet Take 1 tablet (12.5 mg total) by mouth 2 (two) times a day with meals ??? chlorthalidone 25 mg tablet Take 1 tablet (25 mg total) by mouth daily ??? gabapentin (NEURONTIN) 100 mg capsule TAKE 2 CAPSULES(200 MG) BY MOUTH EVERY NIGHT ??? Januvia 25 mg tablet TAKE 1 TABLET BY MOUTH DAILY ??? lisinopriL (PRINIVIL,ZESTRIL) 20 mg tablet TAKE 1 TABLET(20 MG) BY MOUTH DAILY ??? metFORMIN (GLUCOPHAGE) 500 mg tablet TAKE 1 TABLET(500 MG) BY MOUTH TWICE DAILY WITH MEALS ??? oxyCODONE (ROXICODONE) 5 mg immediate release tablet Take 1 tablet (5 mg total) by mouth every 6 (six) hours as needed for pain ??? pantoprazole DR (PROTONIX) 40 mg EC tablet TAKE 1 TABLET(40 MG) BY MOUTH DAILY (Patient taking differently: Take 40 mg by mouth daily ) ??? pravastatin (PRAVACHOL) 20 mg tablet TAKE 1 TABLET BY MOUTH EVERY DAY ??? predniSONE (DELTASONE) 5 mg tablet 5 mg 2 (two) times a day ??? abiraterone (ZYTIGA) 250 mg tablet Take 4 tablets (1,000 mg) by mouth daily. Do not eat anything for at least 2 hours before and for at least 1 hour after ??? Accu-Chek Fastclix Lancet Drum misc TEST BLOOD SUGAR TWICE DAILY ??? Basaglar KwikPen U-100 Insulin 100 unit/mL (3 mL) insulin pen Inject 14 Units under the skin daily Reports changed to [id number] UNITS UNDER THE SKIN DAILY UTD. ??? BD Ultra-Fine Short Pen Needle 31 gauge x 5/16 needle USE DIRECTED TO INJECT INSULIN ONCE DAILY ??? blood glucose diagnostic strip ??? ONETOUCH ULTRA BLUE TEST STRIP strip TEST SUGAR TWICE DAILY ??? TRAVATAN Z 0.004 % drops INT 1 DROP INTO OU QHS PHYSICAL EXAM No physical examination was performed as this was a real time audio/video encounter. LABORATORY DATA DATE Na K CO2 BUN SCr Alb Ca Phos iPTH 25-OH Vit D Hb TSAT Ferritin U P/C U Alb/Cr eGFR (CKD-EPI) 02/06/2020 137 4.3 29 36 1.80 4.2 9.5 12.4 12/07/2019 138 4.2 30 28 1.65 4.0 9.2 0.5 39 11/14/2019 139 4.3 29 37 2.19 4.2 9.6 12.8 08/22/2019 139 4.7 30 38 1.81 4.2 9.3 29 05/30/2019 137 4.6 03/07/2019 1.75 03/07/2018 1.41 07/22/2016 1.34 HbA1C 10 (11/14/2019) 12/07/2019: Urinalysis - No protein, no blood, otherwise unremarkable ASSESSMENT AND PLAN: 1. Chronic kidney disease, stage 3: The etiology of CKD is likely uncontrolled HTN and diabetes mellitus. Renal function had remained stable with Cr 1.7-1.8. Today, we discussed the importance of improved glycemic and BP control. 2. Hypertension: His BP continues to be poorly controlled which we suspect is partly from back painhe is experiencing. He is currently on carvedilol 12.5 mg bid, lisinopril 20 mg daily, chlorthalidone 25 mg daily and newly started amlodipine 2.5 mg daily. We will increase amlodipine to 10 mg daily. Will not increase lisinopril dose given risk of hyperkalemia in the past. 3. Secondary hyperparathyroidism: We will check an iPTH prior to next visit. He can take OTC vitamin D for mild vitamin D deficiency. 4. Hyperkalemia: This has resolved. He is tolerating lisinopril well. DISPOSITION: The patient will return follow up in 6 months with labs. Marie Harkins MD Nephrology fellow [facility] Nephrology Cosigned by Lin Guerrero MD at 04/06/2020 8:39 PM CITY CARRIER CARRIER Associated attestation - Lin Guerrero MD - 04/06/2020 8:39 PM CITY CARRIER This was a telemedicine visit with David Drew which took place via Real- time video connection ([employer] or similar). During the visit, I was located at the outpatient Nephrology Clinic on5th floor CAM at [facility] and the patient was located at home in the [facility]. I was present for the entire service with the fellow and patient/caregiver. I agree with the findings and plan of care as documented in the fellow's note. My visit with the patient started at 10:29 AM andended at 11:00 AM. Total encounter time was 40 minutes, which includes time spent today on pre charting, the patient encounter, and post charting. The patient has been informed that the [...] that this service replaces an office visit. Lin Guerrero MD documented in this encounter Plan of Treatment [...] to monitor diabetes and kidney status, etc. [facility] Chronic Pain Care Plan Chronic Care Management No change(03/23 1:47 PM CITY CARRIER) No Ingrid Oden, RN Note: Problem: Chronic Pain Goals: 1. Minimize further functional decline 2. Maximize quality of life 3. Control pain Strategies: - Activity/exercise program recommendation - Conservative stepwise pain medicine strategy with multi-disciplinary approach - Recommend healthy lifestyle strategies and compensatory methods as needed documented as of this encounter Visit Diagnoses Diagnosis Stage 3a chronic kidney disease (HCC)- Primary hypertension Unspecified hypertensive kidney disease with chronic kidney disease stage I through stage IV, or unspecified Vitamin D deficiency documented in this encounter Discontinued Medications Medication Sig Discontinue Reason Start Date End Da te amLODIPine (NORVASC) 2.5 mg tabletIndications:Hypert ensive kidney disease with chronic kidney disease stage III (HCC) Take 1 tablet (2.5 mg total) by mouth nightly Reorder 12/14/2019 03/13/2020 documented as of this encounter Care Teams Electrical Mechanic Relationship Specialty Start Date End Date Kraig Ching MD [address] [place] [address] PCP - General 07/10/16 Gautam Cope MD [address] [place] [address] Medical Oncologist/Front Office Help Medical Oncology 08/18/18 Tramaine Roe MD [address] [place] [address] Referring Physician Urology 08/18/18 Sukhwinder Uribe MD [address] [place] [address] Consulting Physician Urology 08/18/18 Shay Guillermo MD [address] [place] [address] Referring Physician Urology 08/18/18 Marsha Landsi, RN Registered Nurse 11/17/18 documented as of this encounter
--- OUTSIDE RECORDS SUMMARY | 2024-03-31 04:59 | XMS_ITS | Encounter Summary ---
Author Organization [facility] [employer] of [facility] Address [address] [place] [address] Phone Care Team Providers Care Music Researcher Name Role Phone Kraig Ching MD Primary Care Provider [phone] Gautam Cope MD Unavailable Tramaine Roe MD Unavailable [phone] Sukhwinder Uribe MD Unavailable [phone] Shay Guillermo MD Unavailable [phone] Marsha Landis RN Unavailable Unavailab le Reason for Visit * Episode Based Medications (Routine) - Authorized Specialty Diagnoses / Procedures Referred By Saleem t Referred To Contact Oncology Diagnoses Prostate cancer (HCC) Procedures MA LEUPROLIDE ACETATE SUSPNSION Leuprolide Every 3 Months - Prostate Gautam Cope MD [address] [facility] [address] [place] [address] Phone: tel: fax: [facility] - Infusion [address] [facility] [address] [place] [address] Referral ID Status Reason Start Date Expiration Date V isits Requested Visits Authorized [id number] Authorized 09/06/2018 07/11/2024 1 50 Encounter Details Date Type Department Care Team (Late st Contact Info) Description 07/23/2020 10:15 AM CDT Lab [facility] Oncology [address] [facility] 7th [place] [address] [place] [id number] Prostate cancer (CMS/HCC) Social History Tobacco Use [...] on file Legal Sex Male 4:46 PM ENGINEERING AID Gender Identity Not on file Sexual Orientation [...] to monitor diabetes and kidney status, etc. [facility] Chronic Pain Care Plan Chronic Care Management No change(03/23 1:47 PM ENGINEERING AID) No Ingrid Oden, RN Note: Problem: Chronic Pain Goals: 1. Minimize further functional decline 2. Maximize quality of life 3. Control pain Strategies: - Activity/exercise program recommendation - Conservative stepwise pain medicine strategy with multi-disciplinary approach - Recommend healthy lifestyle strategies and compensatory methods as needed documented as of this encounter Procedures Procedure Name Priority Date/Time Associated Diagnosis Comments DIFFERENTIAL AUTO Routine 07/23/2020 10: 23 AM CDT Prostate cancer ([facility]) CBC WITH AUTO DIFFERENTIAL Routine 07/23/2020 10:23 AM CDT Prostate cancer ([facility]) PSA DIAGNOSTIC Routine 07/23/2020 10:23 AM CDT Prostate cancer ([facility]) LACTATE DEHYDROGENASE Routine 07/23/2020 10:23 AM CDT Prostate cancer ([facility]) HEMOGLOBIN A1C Routine 07/23/2020 10:23 AM CDT Prostate cancer ([facility]) COMPREHENSIVE METABOLIC PANEL STAT 07/23/2020 10:23 AM CDT Prostate cancer ([facility]) documented in this encounter Results * (ABNORMAL) Differential, auto (07/23/2020 10:23 AM CDT) Neutrophil abs 7.1(H) 1.8 - 6.6 K/cumm [facility] Comment:Testing performed by : [facility], [address] [place] [phone] Lymphocyte abs 1.2 1.2 - 3.3 K/cumm [facility] Comment:Testing performed by : [facility], [address] [place] [phone] Monocyte abs 0.9 0.2 - 1.2 K/cumm [facility] Comment:Testing performed by : [facility], [address] [place] [phone] Eosinophil abs 0.2 0.0 - 0.5 K/cumm [facility] Comment:Testing performed by : [facility], [address] [place] [phone] Basophil abs 0.0 0.0 - 0.2 K/cumm [facility] Comment:Testing performed by : [facility], [address] [place] [phone] Neutrophil pct 75.9 % [facility] Comment: Interpretive Data Percent cell count reference ranges are not reported, since discordance with absolute values may lead to misinterpretation of CBC data. Current Interpretive Data was last revised on 2017. Testing performed by: [facility], [address] [place] [phone] Lymphocyte pct 12.6 % [facility] Comment: Interpretive Data Percent cell count reference ranges are not reported, since discordance with absolute values may lead to misinterpretation of CBC data. Current Interpretive Data was last revised on 2017. Testing performed by: [facility], [address] [place] [phone] Monocyte pct 9.3 % [facility] Comment:Testing performed by : [facility], [address] [place] [phone] Eosinophil pct 1.8 % [facility] Comment:Testing performed by : [facility], [address] [place] [phone] Basophil pct 0.4 % [facility] Comment:Testing performed by : [facility], [address] [place] [phone] Blood specimen (specimen) 07/23/2020 10:23 AM CDT 07/23/2020 10:24 AM CDT us Gautam Cope MD LAB BLOOD ORDERABLES Final Resul t [facility] Department [place] [address] * (ABNORMAL) Comprehensive metabolic panel (07/23/2020 10:23 AM CDT) Sodium 138 135 - 145 mmol/L [facility] Comment:Testing performed by : [facility], [address] [place] [phone] Potassium, pl 3.9 3.3 - 4.9 mmol/L [facility] Comment:Testing performed by : [facility], [address] [place] [phone] Chloride 102 97 - 110 mmol/L [facility] Comment:Testing performed by : [facility], [address] [place] [phone] CO2 28 22 - 32 mmol/L [facility] Comment:Testing performed by : [facility], [address] [place] [phone] Anion gap 9 2 - 15 mmol/L [facility] Comment:Testing performed by : [facility], [address] [place] [phone] BUN 43(H) 8 - 25 mg/dL [facility] Comment:Testing performed by : [address] [phone] Creatinine 2.59(H) 0.80 - 1.30 mg/dL [facility] Comment:Testing performed by : [facility], [address] [place] [phone] Glucose 99 70 - 199 mg/dL [facility] Comment: [...] 2017. Testing performed by: [facility], [address] [place] [phone] Calcium 9.1 8.5 - 10.3 mg/dL [facility] Comment:Testing performed by : [facility], [address] [place], [place] [phone] Bilirubin, total 0.3 0.1 - 1.2 mg/dL [facility] Comment:Testing performed by : [facility], [address] [place] [phone] Protein, pl 6.9 6.5 - 8.5 g/dL [facility] Comment:Testing performed by : [facility], [address] [place] [phone] Albumin 4.2 3.5 - 5.0 g/dL [facility] Comment:Testing performed by : [facility], [address] [place] [phone] Alk phos 120 40 - 130 Units/L [facility] Comment:Testing performed by : [facility], [address] [place] [phone] ALT 12 7 - 55 Units/L [facility] Comment:Testing performed by : [facility], [address] [place] [phone] AST 14 10 - 50 Units/L [facility] Comment:Testing performed by : [address] [phone] Blood specimen (specimen) 07/23/2020 10:23 AM CDT 07/23/2020 10:24 AM CDT us Gautam Cope MD LAB BLOOD ORDERABLES Final Resul t [facility] Department [place] [address] * (ABNORMAL) Hemoglobin A1c (07/23/2020 10:23 AM CDT) Hgb A1C 7.8(H) 4.0 - 5.6 % [facility] Estimated Average Glucose 177 mg/dL [facility] Comment: [...] 10:23 AM CDT 07/23/2020 10:41 AM CDT Beatris Herrmann NP LAB BLOOD ORDERABLES Final Resul t Performing Organization Address [facility] Co de Phone Number [facility] Department [place] [address] * Lactate dehydrogenase (LD) (07/23/2020 10:23 AM CDT) Pathologist [facility] Lactate dehydrogenase (LDH) 165 100 - 250 Units/L [facility] Comment:Testing performed by : [facility], [address] [place] [phone] Blood specimen (specimen) 07/23/2020 10:23 AM CDT 07/23/2020 10:24 AM CDT us Gautam Cope MD LAB BLOOD ORDERABLES Final Resul t Performing Organization Address City/[facility] Co de Phone Number [facility] Department [place] [address] * (ABNORMAL) CBC with auto differential (07/23/2020 10:23 AM CDT) Pathologist [facility] WBC 9.3 3.8 - 9.8 K/cumm [facility] Comment:Testing performed by : [facility], [address] [place] [phone] Hgb 12.0(L) 13.8 - 17.2 g/dL [facility] Comment:Testing performed by : [facility], [address] [place], [place] [phone] Hct 34.7(L) 40.7 - 50.3 % [facility] Comment:Testing performed by : [facility], [address] [place], [place] [phone] Plt 378 140 - 440 K/cumm [facility] Comment:Testing performed by : [place] [id number] MPV 6.8 6.8 - 10.4 fL [facility] Comment:Testing performed by : [place] [id number] RBC 4.00(L) 4.50 - 5.70 M/cumm [facility] Comment:Testing performed by : [place] [id number] MCV 86.9 80.0 - 97.6 fL [facility] Comment:Testing performed by : [place] [id number] MCH 29.9 26.7 - 33.7 pg [facility] Comment:Testing performed by : [address] [phone] MCHC 34.5 32.7 - 35.5 g/dL [facility] Comment:Testing performed by : [place] [id number] RDW CV 14.5 11.8 - 14.6 % [facility] Comment:Testing performed by : [place] [id number] NRBC abs 0.00 0.00 - 0.01 K/cumm [facility] Comment:Testing performed by : [place] [id number] Blood specimen (specimen) 07/23/2020 10:23 AM CDT 07/23/2020 10:24 AM CDT us Gautam Cope MD LAB BLOOD ORDERABLES Final Resul t [facility] Department [place] [address] * PSA diagnostic (07/23/2020 10:23 AM CDT) PSA-Total <0.10 <=6.20 ng/mL [facility] Comment: Interpretive Data ?AGE ? SEX ?REFERENCE INTERVAL 0 minutes-150 years ?Female ?None 0 minutes-49 years ? Male ?None ? 50-59 years ? Male ?0-3.90 ? 60-69 years ? Male ?0-5.40 ? 70-79 years ? Male ?0-6.20 ? 80-150 years ?Male ?0-6.20 Current interpretive data last revised 2017. Blood specimen (specimen) 07/23/2020 10:23 AM CDT 07/23/2020 10:44 AM CDT us Gautam Cope MD LAB BLOOD ORDERABLES Final Resul t Performing Organization Address City/State/[facility] Co sd Phone Number [facility] Department [place] [address] documented in this encounter Visit Diagnoses Diagnosis Prostate cancer (HCC) Malignant neoplasm of prostate documented in this encounter Orders Appointment Requests Count Last Ordered Date Fi rst Ordered Date ONCBCN LAB APPOINTMENT 1 07/23/2020 documented in this encounter Care Teams Music Researcher Relationship Specialty Start Date End Date Kraig Ching MD [address] [facility] [address] [place] [address] PCP - General 07/10/16 Gautam Cope MD [address] [facility] [address] [place] [address] Medical Oncologist/Transporter Radiology Medical Oncology 08/18/18 Tramaine Roe MD [address] [facility] [address] [place] [address] Referring Physician Urology 08/18/18 Sukhwinder Uribe MD [address] [facility] [address] [place] [address] Consulting Physician Urology 08/18/18 Shay Guillermo MD [address] [facility] [address] [place] [address] Referring Physician Urology 08/18/18 Marsha Landis, RN Registered Nurse 11/17/18 documented as of this encounter
--- OUTSIDE RECORDS SUMMARY | 2024-03-31 04:59 | XMS_ITS | Encounter Summary ---
Author Organization [facility] Address [address] [place] [address] Phone Care Team Providers Care Business Partner Name Role Phone Kraig Ching MD Primary Care Provider [phone] Gautam Cpoe MD Unavailable Tramaine Roe MD Unavailable [phone] Sukhwinder Uribe MD Unavailable [phone] Shay Guillermo MD Unavailable [phone] Marsha Landis RN Unavailable Unavailab le Reason for Visit * Episode Based Medications (Routine) - Authorized Specialty Diagnoses / Procedures Referred By Saleem narvaez Referred To Contact Oncology Diagnoses Prostate cancer (HCC) Procedures MA LEUPROLIDE ACETATE SUSPNSION Leuprolide Every 3 Months - Prostate Gautam Cope MD [address] [facility] [address] [place] [address] Phone: tel: fax: [facility] - Infusion [address] [facility] [place] [place] [address] [place] [address] Referral ID Status Reason Start Date Expiration Date V isits Requested Visits Authorized [id number] Authorized 09/06/2018 07/11/2024 1 50 Encounter Details Date Type Department Care Team (Late st Contact Info) Description 04/30/2020 10:45 AM APPAREL MANUFACTURE INSTRUCTOR Office Visit [facility] Oncology [facility] [facility] 7th [place] [address] [place] [id number] Gautam Cope MD [address] [facility] [address] [place] [address] Prostate cancer (CMS/HCC) (Primary Dx) Social History [...] on file Legal Sex Male 4:46 PM APPAREL MANUFACTURE INSTRUCTOR Gender Identity Not on file Sexual Orientation Not on file documented as of this encounter Last Filed Vital Signs Vital Sign Reading Time Taken Comments Blood Pressure 157/70 04/30/2020 10:30 AM APPAREL MANUFACTURE INSTRUCTOR Pulse 92 04/30/2020 10:30 AM APPAREL MANUFACTURE INSTRUCTOR Temperature 36.4 ??C (97.5 ??F) 04/30/2020 1 0:26 AM APPAREL MANUFACTURE INSTRUCTOR Respiratory Rate 18 04/30/2020 10:2 6 AM APPAREL MANUFACTURE INSTRUCTOR Oxygen Saturation 94% 04/30/2020 10: 30 AM APPAREL MANUFACTURE INSTRUCTOR Inhaled Oxygen Concentration - - Weight 93.8 kg (206 lb 12.8 oz) 021 10:26 AM APPAREL MANUFACTURE INSTRUCTOR Height - - Body Mass Index 28.84 03/27/2020 9:17 AM APPAREL MANUFACTURE INSTRUCTOR documented in this encounter Progress Notes * Beatris Herrmann NP - 04/30/2020 12:00 AM CST PATIENT NAME: DAVID DREW : 1940 [place]: 04/30/2020 Mr. Drew is a 79-year-old patient of Dr. Cope with metastatic prostate cancer. The patient was diagnosed with prostate cancer in October 1999, when his PSA was 5.5. A prostate biopsy showed Viviana 3 + 4 disease, and the patient was treated with a radical prostatectomy by Dr. Rhodes, which showed Viviana 4 + 3 disease, with extracapsular extension and a positive margin, but no lymph node involvement. He received adjuvant radiation therapy, completed in November 1999. In June 2012, his PSA was rising, and by October 2018, it was in the double digits. An MRI scan in August 2018 showed local recurrence, along with L2 involvement. We met the patient at that time and began Casodex, followed by Lupr on, adding abiraterone in October 2018. The patient has been on Lupron, abiraterone, and prednisone since October 2018, and his PSA has responded nicely, dropping to <0.10. Mr. Kelly returns today for further evaluation. He is tolerating therapy well. He remains bothered by chronic lower back pain.He was seeing the pain specialist at one point, receiving steroid injections with some relief, but has not returned for quite some time. He was to have seen them again in March, but there was someissue with his transportation, so the appointment was canceled. The patient reached out to our office in early March, reporting severe lower abdominal pain with nausea and diarrhea. He stopped hisabiraterone (including his other medications) at that time. Nine days later, on March 25, he wasfeeling considerably better and restarted all his medications, including his abiraterone. He takes calcium and vitamin D supplementation when he remembers. Mr. Drew has minimal recollection of his pain, but did not reach out to his primary care provider for further evaluation. His other comorbidities include diabetes, chronic kidney disease hypertension, paroxysmal atrial fibrillation, hyperlipidemia, and tobacco use. He has lost approximately 7 pounds since his last office visit. He admits that he is fairly inactive and his lifestyle is quite sedentary, but he remains independent in hisactivities of daily living. All other systems are negative. PHYSICAL EXAMINATION: Shows a male whose weight is 93.8 kg. Blood pressure is 157/70, with a pulse of 92. He is afebrile.His oxygen saturation is 94% on room air. His performance status is 70%. Nodes: No palpable cervical or supraclavicular adenopathy. Cardiac: Shows an S1, S2, with a quiet early systolic murmur. Lungs: Clear to auscultation bilaterally. Abdomen: Soft, nontender, nondistended. No hepatosplenomegaly or palpable mass noted. Bowel sounds are active. Abdominal pain is not reproducible. Musculoskeletal: He has reproducible pain to percussion in his lower back. Otherwise, none. Extremities: His lower extremities show no edema. Neurologic: Nonfocal. LABORATORY DATA: From today shows a WBC of 10.0, and hemoglobin of 12.1. His platelet count is 439,000. His liver function is normal, and his creatinine remains elevated 1.83. His PSA is < 0.10. His hgb A1C is 8.3, slightly improved from 3 months ago. ASSESSMENT AND PLAN: Metastatic prostate cancer, currently on Lupron, abiraterone, and prednisone. The patient is doing well on this regimen, and his cancer has been under good control. He was diagnosed with prostate cancer in 1999, treated with a surgical resection, followed by adjuvant radiation therapy that same year. Metastatic involvement was noted in 2019. We met the patient then, and began Lupron and abiraterone. He is tolerating therapy well, and his cancer is under good control. We will see him again 3 months from now for further follow-up and another Lupron injection. We will hold off on a CT scan and bone scan until the end of the year, and he will be due for another bone density after January 2022. We discussed this with the patient, as well some supportive care regarding his back. He will follow up with a roof cement and paint maker helper. The patient is comfortable with this plan and will call with any issues in between visits. ELECTRONICALLY SIGNED - 05/01/2020 08:58 AM BRANDO Chavez Nurse Practitioner In collaboration with Gautam Cope M.D. My signature confirms I have reviewed the note and agree with the assessment and plan of BRANDO Chavez ELECTRONICALLY SIGNED - 05/01/2020 09:12 AM Gautam Cope M.D. pin drafting machine tender ISAK/GLORIA/lul REL MANUFACTURE INSTRUCTOR documented in this encounter Plan of Treatment [...] to monitor diabetes and kidney status, etc. [facility] Chronic Pain Care Plan Chronic Care Management No change(03/23 1:47 PM APPAREL MANUFACTURE INSTRUCTOR) No Ingrid Oden, SHEA Note: Problem: Chronic Pain Goals: 1. Minimize further functional decline 2. Maximize quality of life 3. Control pain Strategies: - Activity/exercise program recommendation - Conservative stepwise pain medicine strategy with multi-disciplinary approach - Recommend healthy lifestyle strategies and compensatory methods as needed documented as of this encounter Results * PSA diagnostic (07/23/2020 10:23 AM CDT) Pathologist [facility] PSA-Total <0.10 <=6.20 ng/mL [facility] Comment: [...] ORDERABLES Final Resul t Performing Organization Address City/State/[facility] Co de Phone Number [facility] Department of Laboratories [place], [place] [phone] * (ABNORMAL) CBC with auto differential (07/23/2020 10:23 AM CDT) Pathologist [facility] WBC 9.3 3.8 - 9.8 K/cumm [facility] Comment:Testing performed by : [facility], [address] [phone] Hgb 12.0(L) 13.8 - 17.2 g/dL [facility] Comment:Testing performed by : [facility], [address] [phone] Hct 34.7(L) 40.7 - 50.3 % [facility] Comment:Testing performed by : [facility], [address] [place], [place] [id number] Plt 378 140 - 440 K/cumm [facility] Comment:Testing performed by : [facility], [address] [place], [place] [id number] MPV 6.8 6.8 - 10.4 fL [facility] Comment:Testing performed by : [place] [id number] RBC 4.00(L) 4.50 - 5.70 M/cumm [facility] Comment:Testing performed by : [facility], [address] [place], [place] [id number] MCV 86.9 80.0 - 97.6 fL [facility] Comment:Testing performed by : [facility], [address] [place], [place] [id number] MCH 29.9 26.7 - 33.7 pg [facility] Comment:Testing performed by : [place] [id number] MCHC 34.5 32.7 - 35.5 g/dL [facility] Comment:Testing performed by : [facility], [address] [place] [phone] RDW CV 14.5 11.8 - 14.6 % [facility] Comment:Testing performed by : [facility], [address] [place] [phone] NRBC abs 0.00 0.00 - 0.01 K/cumm [facility] Comment:Testing performed by : [facility], [address] [place] [phone] Blood specimen (specimen) 07/23/2020 10:23 AM CDT 07/23/2020 10:24 AM CDT us Gautam Cope MD LAB BLOOD ORDERABLES Final Resul t [facility] Department [place] [address] * Lactate dehydrogenase (LD) (07/23/2020 10:23 AM CDT) Pathologist [facility] Lactate dehydrogenase (LDH) 165 100 - 250 Units/L [facility] Comment:Testing performed by : [facility], [address] [place] [phone] Blood specimen (specimen) 07/23/2020 10:23 AM CDT 07/23/2020 10:24 AM CDT Gautam Cope MD LAB BLOOD ORDERABLES Final Resul t Performing Organization Address [facility] de Phone Number [facility] Department [place] [address] * (ABNORMAL) Hemoglobin A1c (04/30/2020 10:17 AM APPAREL MANUFACTURE INSTRUCTOR) [facility] Hgb A1C 8.3(H) 4.0 - 5.6 % [facility] Estimated Average Glucose 192 mg/dL [facility] Comment: The ADA recommends reporting an estimated Average Glucose (eAG) with all Hemoglobin A1c results using the equation derived from a study of 507 normal and diabetic adults. ??Minority populations were underrepresented and children were not included. ?? (Diabetes Care 31:9024-2975, 2008). ??The eAG is not equivalent to a fasting glucose. Blood specimen (specimen) 04/30/2020 10:17 AM APPAREL MANUFACTURE INSTRUCTOR 04/30/2020 10:31 AM APPAREL MANUFACTURE INSTRUCTOR Gautam Cope MD LAB BLOOD ORDERABLES Final Resul t Performing Organization Address [facility] de Phone Number [facility] Department [place] [address] * Lipase (04/30/2020 10:07 AM APPAREL MANUFACTURE INSTRUCTOR) Pathologist [facility] Lipase 35 10 - 99 Units/L [facility] Comment:Testing performed by : [facility], [address] [place] [phone] Blood specimen (specimen) 04/30/2020 10:07 AM APPAREL MANUFACTURE INSTRUCTOR 04/30/2020 10:19 AM APPAREL MANUFACTURE INSTRUCTOR Gautam Cope MD LAB BLOOD ORDERABLES Final Resul t Performing Organization Address City/[facility]/ZIP Co de Phone Number [facility] [place] [address] * Amylase (04/30/2020 10:07 AM APPAREL MANUFACTURE INSTRUCTOR) Amylase 42 30 - 99 Units/L [facility] Comment:Testing performed by : [facility], [address] [place] [phone] Blood specimen (specimen) 04/30/2020 10:07 AM APPAREL MANUFACTURE INSTRUCTOR 04/30/2020 10:19 AM APPAREL MANUFACTURE INSTRUCTOR Gautam Cope MD LAB BLOOD ORDERABLES Final Resul t Performing Organization Address [facility] Co de Phone Number [facility] [place] [address] documented in this encounter Visit Diagnoses Diagnosis Prostate cancer (HCC)- Primary Malignant neoplasm of prostate documented in this encounter Orders Appointment Requests Count Last Ordered Date Fi rst Ordered Date ONCBCN CLINIC APPOINTMENT REQUEST 2 021 04/30/2020 ONCBCN INJECTION APPOINTMENT REQUEST 1 07/11 ONCBCN LAB APPOINTMENT 1 07/23/2020 documented in this encounter Care Teams Business Partner Relationship Specialty Start Date End Date Kraig Ching MD [address] [facility] [address] [place] [address] PCP - General 07/10/16 Gautam Cope MD [address] [facility] [address] [place] [address] Medical Oncologist/Side Splitter Medical Oncology 08/18/18 Tramaine Roe MD [address] [facility] [address] [place] [address] Referring Physician Urology 08/18/18 Sukhwinder Uribe MD [address] [facility] [address] [place] [address] Consulting Physician Urology 08/18/18 Shay Guillermo MD [address] [facility] [address] [place] [address] Referring Physician Urology 08/18/18 Marsha Landis, RN Registered Nurse 11/17/18 documented as of this encounter
--- OUTSIDE RECORDS SUMMARY | 2024-03-31 04:59 | XMS_ITS | Encounter Summary ---
Author Organization [facility] [employer] [facility] Address [address] [place] [address] Phone Care Team Providers Care Biology Specimen Technician Name Role Phone Kraig Ching MD Primary Care Provider Gautam Cope MD Unavailable Tramaine Roe MD Unavailable [phone] Sukhwinder Uribe MD Unavailable [phone] Shay Guillermo MD Unavailable [phone] Marsha Landis RN Unavailable Unavailab le Reason for Visit * Episode Based Medications (Routine) - Authorized Specialty Diagnoses / Procedures Referred By Saleem t Referred To Contact Oncology Diagnoses Prostate cancer (HCC) Procedures [place] LEUPROLIDE ACETATE SUSPNSION Leuprolide Every 3 Months - Prostate Gautam Cope MD [address] [facility] [address] [place] [address] Phone: tel: fax: [facility] - Infusion [address] [facility] [address] [place] [address] Referral ID Status Reason Start Date Expiration Date V isits Requested Visits Authorized [id number] Authorized 09/06/2018 07/11/2024 1 50 Encounter Details Date Type Department Care Team (Late st Contact Info) Description 04/30/2020 10:00 AM SCALE EXPERT Lab [facility] Oncology [address] [facility] 7th [place] [address] [place] [id number] Prostate cancer (CMS/HCC) Social History Tobacco Use [...] on file Legal Sex Male 4:46 PM SCALE EXPERT Gender Identity Not on file Sexual Orientation [...] Chronic Care Management No change(03/23 1:47 PM SCALE EXPERT) No Ingrid Oden, RN Note: Problem: Chronic Pain Goals: 1. Minimize further functional decline 2. Maximize quality of life 3. Control pain Strategies: - Activity/exercise program recommendation - Conservative stepwise pain medicine strategy with multi-disciplinary approach - Recommend healthy lifestyle strategies and compensatory methods as needed documented as of this encounter Procedures Procedure Name Priority Date/Time Associated Diagnosis Comments HEMOGLOBIN A1C Routine 04/30/2020 10:17 AM SCALE EXPERT Prostate cancer ([facility]/HCC) DIFFERENTIAL AUTO Routine 04/30/2020 10: 07 AM SCALE EXPERT Prostate cancer (CMS/HCC) CBC WITH AUTO DIFFERENTIAL Routine 04/30/2020 10:07 AM SCALE EXPERT Prostate cancer (CMS/HCC) PSA DIAGNOSTIC Routine 04/30/2020 10:07 AM SCALE EXPERT Prostate cancer (CMS/HCC) LIPASE Routine 04/30/2020 10:07 AM SCALE EXPERT Prostate cancer (CMS/HCC) LACTATE DEHYDROGENASE Routine 04/30/2020 10:07 AM SCALE EXPERT Prostate cancer (CMS/HCC) AMYLASE Routine 04/30/2020 10:07 AM SCALE EXPERT Prostate cancer (CMS/HCC) COMPREHENSIVE METABOLIC PANEL Routine 04/30/2020 10:07 AM SCALE EXPERT Prostate cancer ([facility]/HCC) documented in this encounter Results * (ABNORMAL) Hemoglobin A1c (04/30/2020 10:17 AM SCALE EXPERT) Hgb A1C 8.3(H) 4.0 - 5.6 % [facility] Estimated Average Glucose 192 mg/dL [facility] Comment: The ADA recommends reporting an estimated Average Glucose (eAG) with all Hemoglobin A1c results using the equation derived from a study of 507 normal and diabetic adults. ??Minority populations were underrepresented and children were not included. ?? (Diabetes Care 31:6940-1113, 2008). ??The eAG is not equivalent to a fasting glucose. Blood specimen (specimen) 04/30/2020 10:17 AM SCALE EXPERT 04/30/2020 10:31 AM SCALE EXPERT us Gautam Cope MD LAB BLOOD ORDERABLES Final Resul t [facility] Department [place] [address] * (ABNORMAL) Differential, auto (04/30/2020 10:07 AM SCALE EXPERT) Pathologist [facility] Neutrophil abs 7.2(H) 1.8 - 6.6 K/cumm [facility] Comment:Testing performed by : [facility], [address] [place] [phone] Lymphocyte abs 1.7 1.2 - 3.3 K/cumm [facility] Comment:Testing performed by : [facility], [address] [place] [phone] Monocyte abs 1.0 0.2 - 1.2 K/cumm [facility] Comment:Testing performed by : [facility], [address] [place] [phone] Eosinophil abs 0.2 0.0 - 0.5 K/cumm [facility] Comment:Testing performed by : [facility], [address] [place] [phone] Basophil abs 0.0 0.0 - 0.2 K/cumm [facility] Comment:Testing performed by : [facility], [address] [place] [phone] Neutrophil pct 71.6 % [facility] Comment: Interpretive Data Percent cell count reference ranges are not reported, since discordance with absolute values may lead to misinterpretation of CBC data. Current Interpretive Data was last revised on 2017. Testing performed by: [facility], [address] [place] [phone] Lymphocyte pct 16.6 % [facility] Comment: Interpretive Data Percent cell count reference ranges are not reported, since discordance with absolute values may lead to misinterpretation of CBC data. Current Interpretive Data was last revised on 2017. Testing performed by: [facility], [address] [place] [phone] Monocyte pct 10.0 % [facility] Comment:Testing performed by : [facility], [address] [place] [phone] Eosinophil pct 1.5 % [facility] Comment:Testing performed by : [facility], [address] [place] [phone] Basophil pct 0.3 % [facility] Comment:Testing performed by : [facility], [address] [place] [phone] Blood specimen (specimen) 04/30/2020 10:07 AM SCALE EXPERT 04/30/2020 10:19 AM SCALE EXPERT us Gautam Cope MD LAB BLOOD ORDERABLES Final Resul t Performing Organization Address [facility] [place] Phone Number [facility] Department [place] [address] * Amylase (04/30/2020 10:07 AM SCALE EXPERT) Amylase 42 30 - 99 Units/L [facility] Comment:Testing performed by : [facility], [address] [place] [phone] Blood specimen (specimen) 04/30/2020 10:07 AM SCALE EXPERT 04/30/2020 10:19 AM SCALE EXPERT us Gautam Cope MD LAB BLOOD ORDERABLES Final Resul t Performing Organization Address City/State/[facility] de Phone Number [facility] of Laboratories [place], [place] [id number] * Lipase (04/30/2020 10:07 AM SCALE EXPERT) Pathologist [facility] Lipase 35 10 - 99 Units/L [facility] Comment:Testing performed by : [facility], [address] [place] [phone] Blood specimen (specimen) 04/30/2020 10:07 AM SCALE EXPERT 04/30/2020 10:19 AM SCALE EXPERT us Gautam Cope MD LAB BLOOD ORDERABLES Final Resul t Performing Organization Address [facility] de Phone Number [facility] [place] [address] * Lactate dehydrogenase (LD) (04/30/2020 10:07 AM SCALE EXPERT) [facility] Lactate dehydrogenase (LDH) 170 100 - 250 Units/L [facility] Comment:Testing performed by : [facility], [address] [place] [phone] Blood specimen (specimen) 04/30/2020 10:07 AM SCALE EXPERT 04/30/2020 10:19 AM SCALE EXPERT us Gautam Cope MD LAB BLOOD ORDERABLES Final Resul t Performing Organization Address [facility] de Phone Number [facility] [place] [address] * (ABNORMAL) CBC with auto differential (04/30/2020 10:07 AM SCALE EXPERT) [facility] WBC 10.0(H) 3.8 - 9.8 K/cumm [facility] Comment:Testing performed by : [facility], [address] [place] [phone] Hgb 12.1(L) 13.8 - 17.2 g/dL [facility] Comment:Testing performed by : [facility], [address] [place], [place] [phone] Hct 37.0(L) 40.7 - 50.3 % [facility] Comment:Testing performed by : [place] [phone] Plt 439 140 - 440 K/cumm [facility] Comment:Testing performed by : [place] [phone] MPV 6.7(L) 6.8 - 10.4 fL [facility] Comment:Testing performed by : [place] [address] RBC 4.18(L) 4.50 - 5.70 M/cumm [facility] Comment:Testing performed by : [place] [address] MCV 88.4 80.0 - 97.6 fL [facility] Comment:Testing performed by : [place] [phone] MCH 29.0 26.7 - 33.7 pg [facility] Comment:Testing performed by : [place] [phone] MCHC 32.8 32.7 - 35.5 g/dL [facility] Comment:Testing performed by : [place] [phone] RDW CV 14.0 11.8 - 14.6 % [facility] Comment:Testing performed by : [place] [phone] NRBC abs 0.01 0.00 - 0.01 K/cumm [facility] Comment:Testing performed by : [place] [phone] Blood specimen (specimen) 04/30/2020 10:07 AM SCALE EXPERT 04/30/2020 10:19 AM SCALE EXPERT us Gautam Cope MD LAB BLOOD ORDERABLES Final Resul t [facility] [place] [address] * (ABNORMAL) Comprehensive metabolic panel (04/30/2020 10:07 AM SCALE EXPERT) Sodium 139 135 - 145 mmol/L [facility] Comment:Testing performed by : [facility], [address] [place] [phone] Potassium, pl 4.1 3.3 - 4.9 mmol/L [facility] Comment:Testing performed by : [facility], [address] [place] [phone] Chloride 99 97 - 110 mmol/L [facility] Comment:Testing performed by : [facility], [address] [place] [phone] CO2 33(H) 22 - 32 mmol/L [facility] Comment:Testing performed by : [facility], [address] [place] [phone] Anion gap 7 2 - 15 mmol/L [facility] Comment:Testing performed by : [facility], [address] [place] [phone] BUN 32(H) 8 - 25 mg/dL [facility] Comment:Testing performed by : [facility], [address] [place] [phone] Creatinine 1.83(H) 0.80 - 1.30 mg/dL [facility] Comment:Testing performed by : [facility], [address] [place] [phone] Glucose 125 70 - 199 mg/dL [facility] Comment: Interpretive Data Fasting glucose >/= [...] was last revised 2017. Testing performed by: [facility], [address] [place] [phone] Calcium 9.9 8.5 - 10.3 mg/dL [facility] Comment:Testing performed by : [facility], [address] [place] [phone] Bilirubin, total 0.5 0.1 - 1.2 mg/dL [facility] Comment:Testing performed by : [facility], [address] [place] [phone] Protein, pl 7.6 6.5 - 8.5 g/dL [facility] Comment:Testing performed by : [facility], [address] [place] [phone] Albumin 4.5 3.5 - 5.0 g/dL [facility] Comment:Testing performed by : [facility], [address] [place] [phone] Alk phos 115 40 - 130 Units/L [facility] Comment:Testing performed by : [facility], [address] [place] [phone] ALT 10 7 - 55 Units/L [facility] Comment:Testing performed by : [facility], [address] [place] [phone] AST 11 10 - 50 Units/L [facility] Comment:Testing performed by : [facility], [address] [place] [phone] Blood specimen (specimen) 04/30/2020 10:07 AM SCALE EXPERT 04/30/2020 10:19 AM SCALE EXPERT us Gautam Cope MD LAB BLOOD ORDERABLES Final Resul t [facility] [address] [facility] Department [place] [address] * PSA diagnostic (04/30/2020 10:07 AM SCALE EXPERT) PSA-Total <0.10 <=6.20 ng/mL [facility] Comment: Interpretive Data ?AGE ? SEX ?REFERENCE INTERVAL 0 minutes-150 years ?Female ?None 0 minutes-49 years ? Male ?None ? 50-59 years ? Male ?0-3.90 ? 60-69 years ? Male ?0-5.40 ? 70-79 years ? Male ?0-6.20 ? 80-150 years ?Male ?0-6.20 Current interpretive data last revised 2017. Blood specimen (specimen) 04/30/2020 10:07 AM SCALE EXPERT 04/30/2020 10:34 AM SCALE EXPERT us Gautam Cope MD LAB BLOOD ORDERABLES Final Resul t Performing Organization Address City/State/[facility] Co de Phone Number [facility] Department [place] [address] documented in this encounter Visit Diagnoses Diagnosis Prostate cancer (HCC) Malignant neoplasm of prostate documented in this encounter Orders Appointment Requests Count Last Ordered Date Fi rst Ordered Date ONCBCN LAB APPOINTMENT 1 04/30/2020 documented in this encounter Care Teams Biology Specimen Technician Relationship Specialty Start Date End Date Kraig Ching MD [address] [place] [address] PCP - General 07/10/16 Gautam Cope MD [address] [place] [address] Medical Oncologist/Lead Clinical Research Coordinator Medical Oncology 08/18/18 Tramaine Roe MD [address] [place] [address] Referring Physician Urology 08/18/18 Sukhwinder Uribe MD [address] [facility] [address] [place] [address] Consulting Physician Urology 08/18/18 Shay Guillermo MD [address] [facility] [address] [place] [address] Referring Physician Urology 08/18/18 Marsha Landis, RN Registered Nurse 11/17/18 documented as of this encounter
--- OUTSIDE RECORDS SUMMARY | 2024-03-31 05:00 | XMS_ITS | Encounter Summary ---
Author Organization [facility] Address [address] [place] [address] Phone Care Team Providers Care Senior Service Technician Name Role Phone Kraig Ching MD Primary Care Provider [phone] Gautam Cope MD Unavailable Tramaine Roe MD Unavailable [phone] Sukhwinder Uribe MD Unavailable Shay Guillermo MD Unavailable [phone] Marsha Landis RN Unavailable Unavailab Reason for Referral * Diagnostic Imaging (Routine) - Closed Specialty Diagnoses / Procedures Referred By Saleem t Referred To Contact Diagnoses Prostate cancer (HCC) Procedures Dexa Axial Skeleton Bone Density 1 or 2 Site Gautam Cope MD [address] [facility] [address] [place] [address] Phone: tel: fax: [facility] (All Locations) Referral ID Status Reason Start Date Expiration Date Visits Re quested Visits Authorized [id number] Closed 11/13/2019 12/12/2020 1 1 Reason for Visit * Episode Based Medications (Routine) - Authorized Specialty Diagnoses / Procedures Referred By Contulices t Referred To Contact Oncology Diagnoses Prostate cancer (HCC) Procedures TN LEUPROLIDE ACETATE SUSPNSION Leuprolide Every 3 Months - Prostate Gautam Cope MD [address] [facility] [address] [place] [address] Phone: tel: fax: [facility] - Infusion [address] [facility] [address] [place] [address] Referral ID Status Reason Start Date Expiration Date V isits Requested Visits Authorized [id number] Authorized 09/06/2018 07/11/2024 1 50 Encounter Details Date Type Department Care Team (Late st Contact Info) Description 11/14/2019 11:30 AM CDT Office Visit [facility] Oncology [address] [facility] Advanced Medicine 7th [place] [address] [place] [phone] Gautam Cope MD [address] [facility] [address] [place], [place] [id number] Prostate cancer (CMS/HCC) (Primary Dx) Social History [...] on file 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 Gender Identity Not on file Sexual Orientation Not on file documented as of this encounter Last Filed Vital Signs Vital Sign Reading Time Taken Comments Blood Pressure 147/68 11/14/2019 10:50 AM CDT Pulse 74 11/14/2019 10:50 AM CDT Temperature 36.7 ??C (98.1 ??F) 11/14/2019 10:50 AM C DT Respiratory Rate 18 11/14/2019 10:48 AM CDT Oxygen Saturation 96% 11/14/2019 10:50 AM CDT Inhaled Oxygen Concentration - - Weight 97.8 kg (215 lb 9.6 oz) 11/14/2019 10:48 AM CDT Height - - Body Mass Index 30.5 05/22/2019 11:51 AM VEHICLE ASSEMBLY INSPECTOR documented in this encounter Progress Notes * Beatris Herrmann NP - 11/14/2019 12:00 AM CDT PATIENT NAME: DAVID DREW : 1940 KATARINA: 11/14/2019 Mr. Drew is a 79-year-old patient of Dr. Cope with metastatic prostate cancer. His prostate cancer was diagnosed in October 1999, with a PSA of 5.5. A prostate biopsy showed Viviana 3+4 disease, and the patient was treated with a radical prostatectomy with Dr. Guillermo. His pathology showed Viviana 4+3 disease, with extracapsular extension, and a positive margin, but no lymph node involvement.He received adjuvant radiation therapy, completed in November 1999. In June 2012, his PSA was rising, and by July 2018, it was in the double digits. An MRI in August 2018 showed local recurrence, and bone scan showed L2 involvement. We met the patient in August 2018 and began Casodex, followed by Lupron,adding Abiraterone in October 2018. Mr. Drew remains on Lupron, abiraterone, and prednisone. He is tolerating therapy well, but reports 24 hours of buttock pain after each Lupron injection. He has not tried any Tylenol to see if that helps with his pain. He has frequent vasomotor symptoms. He hassome frequent nocturia, but otherwise, he denies any difficulty urinating. He is followed by several specialists regarding his various comorbidities, which includes diabetes, chronic kidney disease, hypertension, paroxysmal atrial fibrillation, hyperlipidemia, and tobacco use. His creatinine today is 2.1, higher than it has been in the past. The patient remains independent in his activities of daily living, otherwise he is fairly inactive. He has some chronic lower back pain. The patient is pleased to have lost 6 pounds since his last office visit. All other review of systems are negative. PHYSICAL EXAMINATION: Vital Signs: Shows a male whose weight is 97.8 kg. Blood pressure is 147/68, with a pulse of 74. Heis afebrile. His oxygen saturation is 96% on room air. Performance Status: Performance status is 80%. Nodes: No palpable cervical adenopathy. Cardiac: Shows an S1, S2. He has an early systolic murmur and occasional missed beats. Lungs: Clear to auscultation bilaterally. Abdomen: Soft, nontender, nondistended. No hepatosplenomegaly noted. Bowel sounds are active. Musculoskeletal: WNL. He denies any CVA, spinous, or hip tenderness to percussion. Extremities: Lower extremities show trace edema. Neurological: Nonfocal. LABORATORY DATA: From today shows a stable CBC, with normal liver function. His creatinine is 2.19. His PSA is < 0.1.0 His hemoglobin A1c is 10.0. ASSESSMENT AND PLAN: Metastatic prostate cancer. Mr. Drew was diagnosed with prostate cancer in 1999 and treated with a surgical resection, followed by adjuvant radiation therapy. in 2019, metastatic involvement wasnoted, and the patient was started on hormonal therapy. He remains on Lupron, abiraterone, and prednisone, and he is tolerating therapy well. He has shown a nice radiographic and serologic response.We discussed some supportive care measures regarding the pain that he experiences with his Lupron injections. 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 We will see the patient again 3 months from now for further follow-up and another Lupron injection. He will have a bone density done prior to that office visit. The patient is comfortable with this plan and will call with any issues in between visits. ELECTRONICALLY SIGNED - 11/14/2019 12:51 PM BRANDO Chavez Nurse Practitioner In collaboration with Gautam Cope M.D. My signature confirms I have reviewed the note and agree with the assessment and plan of BRANDO Chavez ELECTRONICALLY SIGNED - 11/14/2019 06:58 PM Gautam Cope M.D. regional cra ISAK/GLORIA/lul documented in this encounter Plan of [...] to monitor diabetes and kidney status, etc. [facility] Chronic Pain Care Plan Chronic Care Management No change(03/23 1:47 PM VEHICLE ASSEMBLY INSPECTOR) No Ingrid Oden, SHEA Note: Problem: Chronic Pain Goals: 1. Minimize further functional decline 2. Maximize quality of life 3. Control pain Strategies: - Activity/exercise program recommendation - Conservative stepwise pain medicine strategy with multi-disciplinary approach - Recommend healthy lifestyle strategies and compensatory methods as needed documented as of this encounter Results * PSA diagnostic (02/06/2020 9:58 AM CDT) PSA-Total <0.10 <=6.20 ng/mL MERLINE [facility] Comment: Interpretive Data ?AGE ? SEX ?REFERENCE INTERVAL 0 minutes-150 years ?Female ?None 0 minutes-49 years ? Male ?None ? 50-59 years ? Male ?0-3.90 ? 60-69 years ? Male ?0-5.40 ? 70-79 years ? Male ?0-6.20 ? 80-150 years ?Male ?0-6.20 Current interpretive data last revised 2017. Blood specimen (specimen) 02/06/2020 9:58 AM CDT 02/06/2020 10:13 AM CDT us Gauatm Cope MD LAB BLOOD ORDERABLES Final Resul t Performing Organization Address City/State/[facility] Co de Phone Number MERLINE PERDOMO [facility] Department of Laboratories [place], [place] [id number] * (ABNORMAL) Comprehensive metabolic panel (02/06/2020 9:58 AM CDT) Sodium 137 135 - 145 mmol/L MERLINE PERDOMO Comment:Testing performed by : [facility], [address] [facility] [phone] Potassium, pl 4.3 3.3 - 4.9 mmol/L MERLINE PERDOMO Comment:Testing performed by : [facility], [address] [facility] [phone] Chloride 100 97 - 110 mmol/L [facility]LINE PER[facility]O Comment:Testing performed by : [facility], [address] [facility] [phone] CO2 29 22 - 32 mmol/L MERLINE PERDOMO Comment:Testing performed by : [facility], [address] [place] [phone] Anion gap 8 2 - 15 mmol/L CERNER BJ Comment:Testing performed by : [facility], [address] [place] [phone] BUN 36(H) 8 - 25 mg/dL CERNER BJ Comment:Testing performed by : [facility], [address] [place] [phone] Creatinine 1.80(H) 0.80 - 1.30 mg/dL CERNER BJ Comment:Testing performed by : [facility], [address] [place] [phone] Glucose 208(H) 70 - 199 mg/dL CERNER [...] was last revised 2017. Testing performed by: [facility], [address] [place] [phone] Calcium 9.5 8.5 - 10.3 mg/dL CERNER BJ Comment:Testing performed by : [address] [phone] Bilirubin, total 0.3 0.1 - 1.2 mg/dL CERNER BJ Comment:Testing performed by : [facility], [address] [place] [phone] Protein, pl 6.9 6.5 - 8.5 g/dL CERNER BJ Comment:Testing performed by : [facility], [address] [place] [phone] Albumin 4.2 3.5 - 5.0 g/dL CERNER BJ Comment:Testing performed by : [address] [phone] Alk phos 111 40 - 130 Units/L CERNER BJ Comment:Testing performed by : [facility], [address] [place] [phone] ALT 12 7 - 55 Units/L MERLINE PERDOMO Comment:Testing performed by : [facility], [address] [place] [phone] AST 11 10 - 50 Units/L MERLINE PERDOMO Comment:Testing performed by : [facility], [address] [place] [phone] Blood specimen (specimen) 02/06/2020 9:58 AM CDT 02/06/2020 10:00 AM CDT us Gautam Cope MD LAB BLOOD ORDERABLES Final Resul t [facility] Department [place] [address] * (ABNORMAL) CBC with auto differential (02/06/2020 9:58 AM CDT) WBC 13.0(H) 3.8 - 9.8 K/cumm MERLINE PERDOMO Comment:Testing performed by : [facility], [address] [place] [phone] Hgb 12.4(L) 13.8 - 17.2 g/dL MERLINE PERDOMO Comment:Testing performed by : [facility], [address] [place] [phone] Hct 37.6(L) 40.7 - 50.3 % MERLINE PERDOMO Comment:Testing performed by : [facility], [address] [place] [phone] Plt 390 140 - 440 K/cumm MERLINE PERDOMO Comment:Testing performed by : [address] [phone] MPV 7.4 6.8 - 10.4 fL MERLINE PERDOMO Comment:Testing performed by : [address] [phone] RBC 4.21(L) 4.50 - 5.70 M/cumm [facility]LINE PERDOMO Comment:Testing performed by : [facility], [address] [place] [phone] MCV 89.4 80.0 - 97.[address] [facility] Comment:Testing performed by : [facility], [address] [place] [phone] MCH 29.5 26.7 - 33.[address] [facility] Comment:Testing performed by : [facility], [address] [place] [phone] MCHC 33.0 32.7 - 35.5 g/dL [facility]LINE [facility] Comment:Testing performed by : [facility], [address] [place] [phone] RDW CV 13.9 11.8 - 14.6 % [facility]LINE [facility] Comment:Testing performed by : [facility], [address] [place], [place] [phone] NRBC abs 0.01 0.00 - 0.01 K/cumm [facility]LINE [facility] Comment:Testing performed by : [facility], [address] [place] [phone] Blood specimen (specimen) 02/06/2020 9:58 AM CDT 02/06/2020 10:00 AM CDT Gautam Cope MD LAB BLOOD ORDERABLES Final Resul t Performing Organization Address City/[facility]/ZIP Co de Phone Number [facility] [place] [address] * Lactate dehydrogenase (LD) (02/06/2020 9:58 AM CDT) Lactate dehydrogenase (LDH) 167 100 - 250 Units/L [facility] Comment:Testing performed by : [facility], [address] [place] [phone] Blood specimen (specimen) 02/06/2020 9:58 AM CDT 02/06/2020 10:00 AM CDT us Gautam Cope MD LAB BLOOD ORDERABLES Final Resul t Performing Organization Address City/[facility]/ZIP Co de Phone Number [facility] [place] [address] * Dexa Axial Skeleton Bone Density 1 or 2 Site (01/30/2020 11:30 AM CDT) Anatomical Region Laterality Modality Body N/A Radiographic Roberta ging Narrative 01/31/2020 9:24 AM CDT Patient Name: David Drew Date of : 1940 Date of scan: 01/30/2020 Bone mineral density was performed on a HoloActimagine Discovery Densitometer. ?? Machine Cross-calibration and Precision studies have been performed with a least significant change of 0.024 g/cm at the spine, 0.020 g/cm at the total proximal femur, and 0.014g/cm at the forearm. HISTORY: ??This is a 79 y.o. postmenopausal male with a history of prostate cancer. Currently on treatment with calcium, Lupron and vitamin D. With a current complaint of back pain. History of tobacco use: Social History Tobacco Use Smoking Status Former Smoker Tobacco Comment Smoking History Packs/day: 10 Cigarettes INDICATIONS: Treatment monitoring, androgen deprivation therapy and male over age 70. FINDINGS: BONE MINERAL DENSITY OF THE LUMBAR SPINE Bone Mineral Density (BMD) of the lumbar spine was measured from L1-L4 and the average density was calculated to be 1.531 gm/cm. This corresponds to a T-score standard deviations from the mean of young adults of 4.0. There is no previous study available for comparison. BONE MINERAL DENSITY OF THE PROXIMAL FEMUR Bone Mineral Density (BMD) of the left hip total was found to be 1.098 gm/cm2. This corresponds to a T-score standard deviations from the mean of young adults of 0.4. Femoral neck is 0.917 gm/cm2 with a T-score ??of -0.1. There is no previous study available for comparison. SUMMARY: Bone mineral density is near the young adult normal mean with no increased risk for fracture. ADDITIONAL COMMENTS: If the patient has a history of a fragility fracture, a fracture that occurred with trauma equivalent to a fall from a standing position or less, then the diagnosis is osteoporosis. The risk of osteoporotic fracture increases approximately 2-fold for each 1.0 SD decrease in T-score. However, low bone density is not the only risk factor for fracture. Other factors include patient? s age, previous osteoporotic fracture or prior fracture as an adult, loss of height of greater than 2 inches, corticosteroid use, risk of falling, risk of injury, and family history of osteoporosis. Not everyone with low bone mineral density has osteoporosis. Osteomalacia and other metabolic bone disorders should also be considered where indicated. ??Patients who have osteoporosis should be evaluated for specific diseases and conditions (secondary causes) that may cause or contribute to bone loss. Consider repeating this study in 1-2 years to assess the patient? s response to treatment, if applicable. It is recommended that any follow up exam be performed on the same machine if possible for better accuracy. DEFINITIONS: Osteoporosis: ??BMD at or below -2.5 T-score Osteopenia (low bone mass): ??BMD between -1.0 and-2.5 T-score. The Bone Health Program adopts the following WHO definitions: Osteoporosis: ??BMD below -2.5 S.D. as compared to the BMD of young normal adults. Osteopenia or Low Bone Mass: ??BMD between -1.0 and -2.5 S.D. below the BMD of young normal adults. Normal Bone Density: ??BMD equal to or greater than -1.0 S.D. as compared to the BMD of young normal adults. References: 1) Ross, Annals of Internal Medicine 114(11): ??919-923 (1990) 2) Rocha, Lancet 341 : 72-75 (1992) 3) Black, Journal Bone and Mineral Research 7(6): 633-8 (1991) 4) Tovar, Journal Bone and Mineral Research 8(10):1227-33 (1992) The history and data sections of the bone mineral density scan were prepared by Tabatha MAST([place]) who is accredited by the International Society of Clinical Densitometry. The overall patient assessment and scan interpretation were performed by Terry Villa M.D. who is certified by the International Society of Clinical Densitometry. [id number] us Gautam Cope MD [facility] DXA PROCEDURES Final Result * (ABNORMAL) Hemoglobin A1c (11/14/2019 10:07 AM CDT) Hgb A1C 10.0(H) 4.0 - 5.6 % [facility] Estimated Average Glucose 240 mg/dL [facility]LINE PERDOMO Comment: The ADA recommends reporting an estimated Average Glucose (eAG) with all Hemoglobin A1c results using the equation derived from a study of 507 normal and diabetic adults. ??Minority populations were underrepresented and children were not included. ?? (Diabetes Care 31:7905-9331, 2008). ??The eAG is not equivalent to a fasting glucose. Blood specimen (specimen) 11/14/2019 10:07 AM CDT 11/14/2019 10:23 AM CDT us Gautam Cope MD LAB BLOOD ORDERABLES Final Resul t [facility] [place] [address] documented in this encounter Visit Diagnoses Diagnosis Prostate cancer (HCC)- Primary Malignant neoplasm of prostate Prostate cancer (HCC) Malignant neoplasm of prostate Prophylactic use of leuprolide acetate (Lupron) Prophylactic use of other agents affecting estrogen receptors and estrogen levels documented in this encounter Historical Medications * This list may reflect changes made after this encounter. Medication Sig Dispense Quantity Refills Last Filled Start D ate End Date diltiaZEM (CARDIZEM) 120 mg tablet 10/10/2019 12/06/2019 added in this encounter Orders Appointment Requests Count Last Ordered Date Fi rst Ordered Date ONCBCN CLINIC APPOINTMENT REQUEST 2 020 11/14/2019 ONCBCN INJECTION APPOINTMENT REQUEST 1 01/11 ONCBCN LAB APPOINTMENT 1 02/06/2020 documented in this encounter Care Teams Senior Service Technician Relationship Specialty Start Date End Date Kraig Ching MD [address] [facility] [address] [place] [address] PCP - General 07/10/16 Gautam Cope MD [address] [facility] [address] [place] [address] Medical Oncologist/Flight Radio Operator Medical Oncology 08/18/18 Tramaine Roe MD [address] [facility] [address] [place] [address] Referring Physician Urology 08/18/18 Sukhwinder Uribe MD [address] [facility] [address] [place] [address] Consulting Physician Urology 08/18/18 Shay Guillermo MD [address] [facility] [address] [place] [address] Referring Physician Urology 08/18/18 Marsha Landis, RN Registered Nurse 11/17/18 documented as of this encounter
--- OUTSIDE RECORDS SUMMARY | 2024-03-31 05:00 | XMS_ITS | Encounter Summary ---
Author Organization [facility] Address [address] [place] [address] Phone Care Team Providers Care Pet Care Worker Name Role Phone Kraig Ching MD Primary Care Provider [phone] Gautam Cope MD Unavailable Tramaine Roe MD Unavailable [phone] Sukhwinder Uribe MD Unavailable [phone] Shay Guillermo MD Unavailable [phone] Marsha Landis RN Unavailable Unavailab Ilene Kaur RN Unavailable [phone] Encounter Details Date Type Department Care Team (Late st Contact Info) Description 06/02/2019 Orders Only [facility] Oncology [address] [facility] Advanced Medicine 7th [place] [address] [place] [address] Muna Saleem RN Social History [...] file 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 Gender Identity Not on file Sexual [...] Care Management No change(03/23 1:47 PM ASSISTANT MERCHANDISE MANAGER) No Ingrid Oden, SHEA Note: Problem: [...] Da te gabapentin (NEURONTIN) 100 mg capsule Take 2 capsules (200 mg total) by mouth nightly 11/17/2018 06/02/2019 documented as of this encounter Care Teams Pet Care Worker Relationship Specialty Start Date End Date Kraig Ching MD [address] [place] [address] PCP - General 07/10/16 Gautam Cope MD [address] [place] [address] Medical Oncologist/Chisel Trimmer Medical Oncology 08/18/18 Tramaine Roe MD [address] [place] [address] Referring Physician Urology 08/18/18 Sukhwinder Uribe MD [address] [place] [address] Consulting Physician Urology 08/18/18 Shay Guillermo MD [address] [place] [address] Referring Physician Urology 08/18/18 Marsha Landis, RN Registered Nurse 11/17/18 Ilene Fragoso, SHEA [address] [facility] [address] [place] [address] Business Area Manager 12/23/18 11/01/19 documented as of this encounter
--- OUTSIDE RECORDS SUMMARY | 2024-03-31 05:00 | XMS_ITS | Encounter Summary ---
Author Organization [facility] Address [address] [place] [address] Phone Care Team Providers Care Communications Program Manager Name Role Phone Kraig Ching MD Primary Care Provider [phone] Gautam Cope MD Unavailable Tramaine Roe MD Unavailable [phone] Sukhwinder Uribe MD Unavailable [phone] Shay Guillermo MD Unavailable [phone] Marsha Landis RN Unavailable Unavailab Ilene Kaur RN Unavailable [phone] Reason for Visit * Episode Based Medications (Routine) - Authorized Specialty Diagnoses / Procedures Referred By Contac t Referred To Contact Oncology Diagnoses Prostate cancer (HCC) Procedures MD LEUPROLIDE ACETATE SUSPNSION Leuprolide Every 3 Months - Prostate Gautam Cope MD [address] [facility] [address] [place] [address] Phone: tel: fax: [facility] [address] [facility] [address] [place] [address] Referral ID Status Reason Start Date Expiration Date V isits Requested Visits Authorized [id number] Authorized 09/06/2018 07/11/2024 1 50 Encounter Details Date Type Department Care Team (Late st Contact Info) Description 08/22/2019 10:15 AM CDT Lab [facility] Oncology [address] [facility] 7th [place] [address] [place] [address] Prostate cancer ([facility]) Social History Tobacco Use Types Packs/Day Years [...] on file 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 [facility] Chronic Pain Care Plan Chronic Care Management No change(03/23 1:47 PM FURRIER DESIGNER) No Ingrid Oden RN Note: Problem: Chronic Pain Goals: 1. Minimize further functional decline 2. Maximize quality of life 3. Control pain Strategies: - Activity/exercise program recommendation - Conservative stepwise pain medicine strategy with multi-disciplinary approach - Recommend healthy lifestyle strategies and compensatory methods as needed documented as of this encounter Procedures Procedure Name Priority Date/Time Associated Diagnosis Comments HEMOGLOBIN A1C Routine 08/22/2019 10:10 AM CDT Prostate cancer ([facility]) DIFFERENTIAL AUTO Routine 08/22/2019 10: 08 AM CDT Prostate cancer ([facility]) CBC WITH AUTO DIFFERENTIAL Routine 08/22/2019 10:08 AM CDT Prostate cancer ([facility]) VITAMIN D 25 HYDROXY Routine 08/22/2019 10:08 AM CDT Prostate cancer ([facility]) PSA DIAGNOSTIC Routine 08/22/2019 10:08 AM CDT Prostate cancer ([facility]) LACTATE DEHYDROGENASE Routine 08/22/2019 10:08 AM CDT Prostate cancer ([facility]) COMPREHENSIVE METABOLIC PANEL Routine 08/22/2019 10:08 AM CDT Prostate cancer ([facility]) documented in this encounter Results * (ABNORMAL) Hemoglobin A1c (08/22/2019 10:10 AM CDT) Hgb A1C 11.0(H) 4.0 - 5.6 % [facility] Estimated Average Glucose 269 mg/dL [facility] Comment: The ADA recommends reporting an estimated Average Glucose (eAG) with all Hemoglobin A1c results using the equation derived from a study of 507 normal and diabetic adults. ??Minority populations were underrepresented and children were not included. ?? (Diabetes Care 31:1024-8814, 2008). ??The eAG is not equivalent to a fasting glucose. Blood specimen (specimen) 08/22/2019 10:10 AM CDT 08/22/2019 10:13 AM CDT us Gautam Cope MD LAB BLOOD ORDERABLES Final Resul t [facility] Department [place] [address] * (ABNORMAL) Differential, auto (08/22/2019 10:08 AM CDT) [facility] Neutrophil abs 8.3(H) 1.8 - 6.6 K/cumm [facility] Comment:Testing performed by : [facility], [address] [place] [phone] Lymphocyte abs 1.9 1.2 - 3.3 K/cumm [facility] Comment:Testing performed by : [facility], [address] [place] [phone] Monocyte abs 0.9 0.2 - 1.2 K/cumm [facility] Comment:Testing performed by : [facility], [address] [place] [phone] Eosinophil abs 0.1 0.0 - 0.5 K/cumm [facility] Comment:Testing performed by : [facility], [address] [place] [phone] Basophil abs 0.1 0.0 - 0.2 K/cumm [facility] Comment:Testing performed by : [facility], [address] [place] [phone] Neutrophil pct 73.5 % [facility] Comment: Interpretive Data Percent cell count reference ranges are not reported, since discordance with absolute values may lead to misinterpretation of CBC data. Current Interpretive Data was last revised on 2017. Testing performed by: [facility], [address] [place] [phone] Lymphocyte pct 16.6 % [facility] Comment: Interpretive Data Percent cell count reference ranges are not reported, since discordance with absolute values may lead to misinterpretation of CBC data. Current Interpretive Data was last revised on 2017. Testing performed by: [facility], [address] [place] [phone] Monocyte pct 8.0 % [facility] Comment:Testing performed by : [facility], [address] [place] [phone] Eosinophil pct 1.2 % [facility] Comment:Testing performed by : [facility], [address] [place] [phone] Basophil pct 0.7 % [facility] Comment:Testing performed by : [facility], [address] [place] [phone] Blood specimen (specimen) 08/22/2019 10:08 AM CDT 08/22/2019 10:08 AM CDT Gautam Cope MD LAB BLOOD ORDERABLES Final Resul t Performing Organization Address City/[facility]/ZIP Co de Phone Number [facility] [place] [employer] [place] [address] * (ABNORMAL) Vitamin D 25 hydroxy (08/22/2019 10:08 AM CDT) Vitamin D 25-OH 29(L) 30 - 80 ng/mL [facility] Blood specimen (specimen) 08/22/2019 10:08 AM CDT 08/22/2019 10:31 AM CDT us Gautam Cope MD LAB BLOOD ORDERABLES Edited Resu lt - Final [facility] Department [place] [address] * Lactate dehydrogenase (LD) (08/22/2019 10:08 AM CDT) Pathologist [facility] Lactate dehydrogenase (LDH) 163 100 - 250 Units/L [facility] Comment:Testing performed by : [facility], [address] [place] [phone] Blood specimen (specimen) 08/22/2019 10:08 AM CDT 08/22/2019 10:08 AM CDT us Gautam Coep MD LAB BLOOD ORDERABLES Final Resul t [facility] Department [place] [address] * (ABNORMAL) CBC with auto differential (08/22/2019 10:08 AM CDT) Pathologist [facility] WBC 11.3(H) 3.8 - 9.8 K/cumm [facility] Comment:Testing performed by : [facility], [address] [place] [phone] Hgb 12.3(L) 13.8 - 17.2 g/dL [facility] Comment:Testing performed by : [facility], [address] [place] [phone] Hct 37.1(L) 40.7 - 50.3 % [facility] Comment:Testing performed by : [facility], [address] [place] [phone] Plt 398 140 - 440 K/cumm [facility] Comment:Testing performed by : [facility], [address] [place] [phone] MPV 7.2 6.8 - 10.4 fL [facility] Comment:Testing performed by : [address] [phone] RBC 4.16(L) 4.50 - 5.70 M/cumm [facility] Comment:Testing performed by : [address] [phone] MCV 89.1 80.0 - 97.6 fL [facility] Comment:Testing performed by : [facility], [address] [place] [phone] MCH 29.6 26.7 - 33.7 pg [facility] Comment:Testing performed by : [facility], [address] [place] [phone] MCHC 33.2 32.7 - 35.5 g/dL [facility] Comment:Testing performed by : [facility], [address] [place] [phone] RDW CV 14.0 11.8 - 14.6 % [facility] Comment:Testing performed by : [facility], [address] [place] [phone] NRBC abs 0.00 0.00 - 0.01 K/cumm [facility] Comment:Testing performed by : [facility], [address] [place] [phone] Blood specimen (specimen) 08/22/2019 10:08 AM CDT 08/22/2019 10:08 AM CDT us Gautam Cope MD LAB BLOOD ORDERABLES Final Resul t [facility] Department [place] [address] * (ABNORMAL) Comprehensive metabolic panel (08/22/2019 10:08 AM CDT) Sodium 139 135 - 145 mmol/L [facility] Comment:Testing performed by : [facility], [address] [place] [phone] Potassium, pl 4.7 3.3 - 4.9 mmol/L [facility] Comment:Testing performed by : [facility], [address] [place] [phone] Chloride 99 97 - 110 mmol/L [facility] Comment:Testing performed by : [facility], [address] [place] [phone] CO2 30 22 - 32 mmol/L [facility] Comment:Testing performed by : [facility], [address] [place] [phone] Anion gap 10 2 - 15 mmol/L [facility] Comment:Testing performed by : [facility], [address] [place] [phone] BUN 38(H) 8 - 25 mg/dL [facility] Comment:Testing performed by : [facility], [address] [place] [phone] Creatinine 1.81(H) 0.80 - 1.30 mg/dL [facility] Comment:Testing performed by : [facility], [address] [place] [phone] Glucose 229(H) 70 - 199 mg/dL [facility] Comment: [...] was last revised 2017. Testing performed by: [facility], [address] [place] [phone] Calcium 9.3 8.5 - 10.3 mg/dL [facility] Comment:Testing performed by : [facility], [address] [place] [phone] Bilirubin, total 0.4 0.1 - 1.2 mg/dL [facility] Comment:Testing performed by : [facility], [address] [place] [phone] Protein, pl 6.8 6.5 - 8.5 g/dL [facility] Comment:Testing performed by : [facility], [address] [place] [phone] Albumin 4.2 3.5 - 5.0 g/dL [facility] Comment:Testing performed by : [address] [phone] Alk phos 111 40 - 130 Units/L [facility] Comment:Testing performed by : [facility], [address] [facility] [phone] ALT 17 7 - 55 Units/L [facility] Comment:Testing performed by : [facility], [facility] [phone] AST 13 10 - 50 Units/L [facility] Comment:Testing performed by : [facility], [address] [place] [phone] Blood specimen (specimen) 08/22/2019 10:08 AM CDT 08/22/2019 10:08 AM CDT us Gautam Cope MD LAB BLOOD ORDERABLES Final Resul t Performing Organization Address City/State/[facility] Co de Phone Number [facility] Department [place] [address] * PSA diagnostic (08/22/2019 10:08 AM CDT) PSA-Total <0.10 <=6.20 ng/mL [facility] Comment: Interpretive Data ?AGE ? SEX ?REFERENCE INTERVAL 0 minutes-150 years ?Female ?None 0 minutes-49 years ? Male ?None ? 50-59 years ? Male ?0-3.90 ? 60-69 years ? Male ?0-5.40 ? 70-79 years ? Male ?0-6.20 ? 80-150 years ?Male ?0-6.20 Current interpretive data last revised 2017. Blood specimen (specimen) 08/22/2019 10:08 AM CDT 08/22/2019 10:31 AM CDT us Gautam Cope MD LAB BLOOD ORDERABLES Final Resul t [facility] [place] [address] documented in this encounter Visit Diagnoses Diagnosis Prostate cancer (HCC) Malignant neoplasm of prostate documented in this encounter Orders Appointment Requests Count Last Ordered Date Fi rst Ordered Date ONCBCN LAB APPOINTMENT 1 08/22/2019 documented in this encounter Care Teams Communications Program Manager Relationship Specialty Start Date End Date Kraig Ching MD [address] [place] [address] PCP - General 07/10/16 Gautam Cope MD [address] [place] [address] Medical Oncologist/Bag Hanger Medical Oncology 08/18/18 Tramaine Roe MD [address] [place] [address] Referring Physician Urology 08/18/18 Sukhwinder Uribe MD [address] [place] [address] Consulting Physician Urology 08/18/18 Shay Guillermo MD [address] [place] [address] Referring Physician Urology 08/18/18 Marsha Landis, RN Registered Nurse 11/17/18 Ilene Fragoso, SHEA [address] [facility] [address] [place] [address] Frame Straightener 12/23/18 11/01/19 documented as of this encounter
--- OUTSIDE RECORDS SUMMARY | 2024-03-31 05:00 | XMS_ITS | Encounter Summary ---
Author Organization [facility] Healthcare Address [address] [place] [address] Care Team Providers Care Regional Director Of Finance Name Role Phone Kraig Ching MD Primary Care Provider [phone] Gautam Cope MD Unavailable Tramaine Roe MD Unavailable [phone] Sukhwinder Uribe MD Unavailable [phone] Shay Guillermo MD Unavailable [phone] Marsha Landis RN Unavailable Unavailab Ilene Kaur RN Unavailable [phone] Reason for Referral * Diagnostic Imaging (Routine) - Closed Specialty Diagnoses / Procedures Referred By Saleem narvaez Referred To Contact Diagnoses Prostate cancer (HCC) Procedures NM bone scan whole body Gautam Cope MD [address] [facility] [address] [place] [address] Phone: tel: fax: [facility] 1 [place] [address] Referral ID Status Reason Start Date Expiration Date Visits Re quested Visits Authorized [id number] Closed 05/31/2019 12/09/2020 2 2 Reason for Visit * Diagnostic Imaging (Routine) - Closed Specialty Diagnoses / Procedures Referred By Saleem narvaez Referred To Contact Diagnoses Prostate cancer (HCC) Procedures NM bone scan whole body Gautam Cope MD [address] [facility] [address] [place] [address] Phone: tel: fax: [facility] 1 [facility] [place] [address] Referral ID Status Reason Start Date Expiration Date Visits Re quested Visits Authorized [id number] Closed 05/31/2019 12/09/2020 2 2 Encounter Details Date Type Department Care Team (Latest Contact Info) Description 08/15/2019 9:11 AM CDT - 08/15/2019 9:56 AM CDT Hospital Encounter [facility] [address] [place] [address] Gautam Cope MD [address] [facility] [address] [place] [address] Prostate cancer (CMS/HCC) Discharge Disposition: Discharge to home or self [...] on file 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 Gender Identity Not on file Sexual Orientation Not on file documented as of this encounter Medications at Time of Discharge abiraterone (ZYTIGA) 250 mg tabletIndications:p rostate cancer Take 4 tablets (1,000 mg total) by mouth daily Do not eat anything for at least 2 hours before and for at least 1 hour after 120 tablet 11 10/20/2018 0 ACCU-CHEK FASTCLIX LANCET DRUM misc TEST BLOOD SUGAR BID 1 08/29/2018 0 albuterol HFA (Ventolin HFA) 90 mcg/actuation inhalerIndications: Chronic obstructive pulmonary disease, unspecified COPD type (HCC) Inhale 2 puffs every 4 (four) hours as needed for wheezing or shortness of breath 8 g 5 05/22/2019 0 amLODIPine (NORVASC) 5 mg tablet Take 1 tablet (5 mg total) by mouth every morning 30 tablet 5 03/15/2019 0 aspirin 81 mg tablet Take 1 tablet (81 mg total) by mouth daily. 30 tablet 11 03/07/2018 3 Basaglar KwikPen U-100 Insulin 100 unit/mL (3 mL) insulin pen INJECT 10 UNITS UNDER THE SKIN DAILY UTD. 3 mL 11 06/09/2019 0 Basaglar KwikPen U-100 Insulin 100 unit/mL (3 mL) insulin penIndications:Type 2 diabetes mellitus with stage 3 chronic kidney disease, without long-term current use of insulin ([facility]) INJECT 10 UNITS UNDER THE SKIN DAILY DIRECTED 3 mL 5 07/28/2019 0 BD Ultra-Fine Short Pen Needle 31 gauge x 5/16 needle USE TO INJECT INSULIN ONCE DAILY 100 each 06/05/2019 0 blood glucose diagnostic strip 11/10/19 2 3 chlorthalidone 25 mg tablet Take 1/2 tablet daily (12.5 mg) 15 tablet 11 08/24/2018 0 diltiaZEM (CARDIZEM) 120 mg tablet TAKE 1 TABLET BY MOUTH DAILY 90 tablet 3 12/06/2018 0 gabapentin (NEURONTIN) 100 mg capsule TAKE 2 CAPSULES(200 MG) BY MOUTH EVERY NIGHT 60 capsule 2 07/04/2019 0 JANUVIA 25 mg tabletIndications:T ype 2 diabetes mellitus with stage 3 chronic kidney disease, without long-term current use of insulin ([facility]) TAKE 1 TABLET BY MOUTH DAILY 30 tablet 11 01/06/2019 0 lisinopriL (PRINIVIL,ZESTRIL) 20 mg tabletIndications:E ssential hypertension TAKE 1 TABLET(20 MG) BY MOUTH DAILY 30 tablet 5 07/10/2019 0 metFORMIN (GLUCOPHAGE) 500 mg tablet TAKE 1 TABLET(500 MG) BY MOUTH TWICE DAILY WITH MEALS 60 tablet 11 05/01/2019 0 ONETOUCH ULTRA BLUE TEST STRIP strip TEST SUGAR TWICE DAILY 100 each 3 09/20/[address] (PROTONIX) 40 mg EC tablet TAKE 1 TABLET(40 MG) BY MOUTH DAILY 90 tablet 1 05/29/2019 0 pravastatin (PRAVACHOL) 20 mg tablet TAKE 1 TABLET(20 MG) BY MOUTH DAILY 90 tablet 1 05/27/2019 0 predniSONE (DELTASONE) 5 mg tabletIndications:A drenal Cortical Insufficiency Take 1 tablet (5 mg) by mouth 2 (two) times a day 60 tablet 11 10/20/2018 0 TRAVATAN Z 0.004 % drops INT 1 [...] Chronic Care Management No change(03/23 1:47 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 Dr. Tramaine Carvajal also participated in the interpretation of this study. Dictated by: Jesus Durham M.D. The radiology attending physician has personally reviewed this study, and had reviewed and/or edited this written report and agrees with it. Electronically signed by: Sandra Davila M.D. Narrative 08/15/2019 2:38 PM CDT EXAMINATION: ??BONE SCINTIGRAPHY (WHOLE-BODY) DATE OF STUDY: ?? 08/15/2019 RADIOPHARMACEUTICAL: ?? 23.99 mCi Tc-99m MDP i.v. HISTORY: ??78 year old man with prostate cancer FINDINGS: ??Delayed whole-body scintigrams were obtained. ?? Prior nuclear medicine studies used for comparison: Bone scan dated 08/10/2018 Other radiographic comparisons: CT chest abdomen pelvis dated 08/15/2019. Focus of intense uptake in the right aspect of the L2 vertebral body is not significantly changed, corresponding to a stable sclerotic lesion on CT. ??No new suspicious osseous lesions are seen. Foci of increased uptake in the cervical spine, shoulders, sternoclavicular joints, elbows, knees and ankles consistent with degenerative changes. Uptake along the right thoracic paraspinal region corresponds to diffuse idiopathic skeletal hyperostosis seen on CT. Procedure Note Sandra Davila MD - 08/15/2019 EXAMINATION: BONE SCINTIGRAPHY (WHOLE-BODY) DATE OF STUDY: 08/15/2019 RADIOPHARMACEUTICAL: 23.99 mCi Tc-99m MDP i.v. HISTORY: 78 year old man with prostate cancer FINDINGS: Delayed whole-body scintigrams were obtained. Prior nuclear medicine studies used for comparison: Bone scan dated 08/10/2018 Other radiographic comparisons: CT chest abdomen pelvis dated 08/15/2019. Focus of intense uptake in the right aspect of the L2 vertebral body is not significantly changed, corresponding to a stable sclerotic lesion on CT. No new suspicious osseous lesions are seen. Foci of increased uptake in the cervical spine, shoulders, sternoclavicular joints, elbows, knees and ankles consistent with degenerative changes. Uptake along the right thoracic paraspinal region corresponds to diffuse idiopathic skeletal hyperostosis seen on CT. IMPRESSION: Stable osseous metastatic disease in the L2 vertebral body. Dr. Tramaine Carvajal also participated in the interpretation of this study. Dictated by: Jesus Durham M.D. The radiology attending physician has personally reviewed this study, and had reviewed and/or edited this written report and agrees with it. Electronically signed by: Sandra Davila M.D. Gautam Cope MD IMG NM PROCEDURES Final Result documented in this encounter Visit Diagnoses Diagnosis Prostate cancer (HCC) Malignant neoplasm of prostate documented in this encounter Administered Medications Inactive Administered Medications - up to 3 most recent administrations Medication Order MAR Action Action Date Dose Rate Site tc-99m medronate (MDP) injection 20 millicurie 20 millicurie, intravenous, Once in imaging, radiopharmaceutical, Starting on Wed08/15/19 at 0936, For 1 dose, Indications: Diagnostic RadiographyIndications:Jill gnostic Radiography Given 08/15/2019 9:36 AM CDT 23.99 millicuries documented in this encounter Care Teams Regional Director Of Finance Relationship Specialty Start Date End Date Kraig Ching MD [address] [place] [address] PCP - General 07/10/16 Gautam Cope MD [address] [place] [address] Medical Oncologist/Project Lead Medical Oncology 08/18/18 Tramaine Roe MD [address] [place] [address] Referring Physician Urology 08/18/18 Sukhwinder Uribe MD [address] [facility] [address] [place] [address] Consulting Physician Urology 08/18/18 Shay Guillermo MD [address] [facility] [address] [place] [address] Referring Physician Urology 08/18/18 Marsha Landis, RN Registered Nurse 11/17/18 Ilene Fragoso, RN [address] [facility] [address] [place] [address] Teller Coordinator 12/23/18 11/01/19 documented as of this encounter
--- OUTSIDE RECORDS SUMMARY | 2024-03-31 05:00 | XMS_ITS | Encounter Summary ---
Author Organization [facility] Address [address] [facility] [place] [address] Care Team Providers Care Otolaryngology Teacher Name Role Phone Kraig Ching MD Primary Care Provider [phone] Gautam Cope MD Unavailable Tramaine Roe MD Unavailable [phone] Sukhwinder Uribe MD Unavailable Shay Guillermo MD Unavailable Marsha Landis RN Unavailable Unavailab Ilene Kaur RN Unavailable Encounter Details Date Type Department Care Team (Late st Contact Info) Description 05/12/2019 Orders Only [facility] [address] [facility] [address] [place] [address] Kraig Ching MD [address] [facility] [address] [place], [place] [id number] Social History Tobacco Use Types Packs/Day Years [...] on file 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 Minimize further functional decline 2. Maximize quality of life 3. Control pain Strategies: - Activity/exercise program recommendation - Conservative stepwise pain medicine strategy with multi-disciplinary approach - Recommend healthy lifestyle strategies and compensatory methods as needed documented as of this encounter Visit Diagnoses Not on filedocumented in this encounter Care Teams Otolaryngology Teacher Relationship Specialty Start Date End Date Kraig Ching MD [address] [place] [address] PCP - General 07/10/16 Gautam Cope MD [address] [place] [address] Medical Oncologist/Catering Administrative Assistant Medical Oncology 08/18/18 Tramaine Roe MD [address] [place] [address] Referring Physician Urology 08/18/18 Sukhwinder Uribe MD [address] [facility] [facility] [address] [place] [address] Consulting Physician Urology 08/18/18 Shay Guillermo MD [address] [facility] [address] [place] [address] Referring Physician Urology 08/18/18 Marsha Landis, RN Registered Nurse 11/17/18 Ilene Fragoso, RN [address] [facility] [address] [place] [address] Intermediate Card Tender 12/23/18 11/01/19 documented as of this encounter
--- OUTSIDE RECORDS SUMMARY | 2024-03-31 05:00 | XMS_ITS | Encounter Summary ---
Author Organization [facility] Address [address] [place] [address] Phone Care Team Providers Care Central Office Repairer Supervisor Name Role Phone Kraig Ching MD Primary Care Provider Gautam Cope MD Unavailable Tramaine Roe MD Unavailable [phone] Sukhwinder Uribe MD Unavailable [phone] Shay Guillermo MD Unavailable Marsha Landis RN Unavailable Unavailab Ilene Kaur RN Unavailable [phone] Encounter Details Date Type Department Care Team (Late st Contact Info) Description 03/03/2019 Orders Only [facility] Oncology [address] [facility] 7th [place] [address] [place] [id number] Muna Saleem RN Prostate cancer (CMS/HCC) Social History Tobacco Use Types Packs/Day Years Used Date Smoking Tobacco: Former Smokeless Tobacco: Never Comments:Smoking History Pac ks/day: 10 Cigarettes Alcohol Use Standard Drinks/Week Comments Yes 0 (1 standard drink = 0.6 oz pur e alcohol) Occasional glass of wine. PHQ-2 Answer Date Recorded PHQ-2 Score 2 01/17/2019 Sex and Gender Information Value Date Recorded Sex Assigned at Not on file Legal Sex Male 4:46 PM MANAGER FAMILY Gender Identity Not on file Sexual Orientation [...] to monitor diabetes and kidney status, etc. [facility] Chronic Pain Care Plan Chronic Care Management No change(03/23 1:47 PM MANAGER FAMILY) No Ingrid Oden, RN Note: Problem: Chronic Pain Goals: 1. Minimize further functional decline 2. Maximize quality of life 3. Control pain Strategies: - Activity/exercise program recommendation - Conservative stepwise pain medicine strategy with multi-disciplinary approach - Recommend healthy lifestyle strategies and compensatory methods as needed documented as of this encounter Results * PSA diagnostic (05/30/2019 10:55 AM MANAGER FAMILY) PSA-Total <0.10 <=6.20 ng/mL [facility] Comment: Interpretive Data ?AGE ? SEX ?REFERENCE INTERVAL 0 minutes-150 years ?Female ?None 0 minutes-49 years ? Male ?None ? 50-59 years ? Male ?0-3.90 ? 60-69 years ? Male ?0-5.40 ? 70-79 years ? Male ?0-6.20 ? 80-150 years ?Male ?0-6.20 Current interpretive data last revised 2017. Blood specimen (specimen) 05/30/2019 10:55 AM MANAGER FAMILY 05/30/2019 11:34 AM MANAGER FAMILY us Gautam Cope MD LAB BLOOD ORDERABLES Final Resul t [facility] Department [place] [address] * (ABNORMAL) Comprehensive metabolic panel (05/30/2019 10:55 AM MANAGER FAMILY) Sodium 137 135 - 145 mmol/L [facility] Potassium, pl 4.6 3.3 - 4.9 mmol/L [facility] Chloride 98 97 - 110 mmol/L [facility] CO2 29 22 - 32 mmol/L [facility] Anion gap 10 2 - 15 mmol/L [facility] BUN 29(H) 8 - 25 mg/dL [facility] Creatinine 1.48(H) 0.80 - 1.30 mg/dL [facility] Glucose 259(H) 70 - 199 mg/dL [facility] Comment: Interpretive Data Fasting glucose >/= [...] interpretive data was last revised 2017. Calcium 9.9 8.5 - 10.3 mg/dL [facility] Bilirubin, total 0.4 0.1 - 1.2 mg/dL [facility] Protein, pl 7.1 6.5 - 8.5 g/dL [facility] Albumin 4.1 3.5 - 5.0 g/dL [facility] Alk phos 104 40 - 130 Units/L [facility] ALT 19 7 - 55 Units/L [facility] AST 18 10 - 50 Units/L [facility] Blood specimen (specimen) 05/30/2019 10:55 AM MANAGER FAMILY 05/30/2019 11:34 AM MANAGER FAMILY us Gautam Cope MD LAB BLOOD ORDERABLES Final Resul t Performing Organization Address [facility] de Phone Number [facility] Department [place] [address] * Lactate dehydrogenase (LD) (05/30/2019 10:55 AM MANAGER FAMILY) Pathologist [facility] Lactate dehydrogenase (LDH) 204 100 - 250 Units/L [facility] Blood specimen (specimen) 05/30/2019 10:55 AM MANAGER FAMILY 05/30/2019 11:34 AM MANAGER FAMILY us Gautam Cope MD LAB BLOOD ORDERABLES Final Resul t Performing Organization Address [facility] Co de Phone Number [facility] Department [place] [address] * (ABNORMAL) CBC with auto differential (05/30/2019 10:51 AM MANAGER FAMILY) Pathologist [facility] WBC 10.5(H) 3.8 - 9.8 K/cumm [facility] Comment:Testing performed by : [facility], [address] [place] [address] Hgb 12.1(L) 13.8 - 17.2 g/dL [facility] Comment:Testing performed by : [place] [address] Hct 36.3(L) 40.7 - 50.3 % [facility] Comment:Testing performed by : [facility], [address] [place] [address] Plt 381 140 - 440 K/cumm [facility] Comment:Testing performed by : [place] [address] MPV 7.7 6.8 - 10.4 fL [facility] Comment:Testing performed by : [place] [address] RBC 4.01(L) 4.50 - 5.70 M/cumm [facility] Comment:Testing performed by : [place] [address] MCV 90.6 80.0 - 97.6 fL [facility] Comment:Testing performed by : [place] [address] MCH 30.2 26.7 - 33.7 pg [facility] Comment:Testing performed by : [place] [address] MCHC 33.4 32.7 - 35.5 g/dL [facility] Comment:Testing performed by : [place] [address] RDW CV 13.5 11.8 - 14.6 % [facility] Comment:Testing performed by : [place] [address] NRBC abs 0.00 0.00 - 0.01 K/cumm [facility] Comment:Testing performed by : [place] [address] Blood specimen (specimen) 05/30/2019 10:51 AM MANAGER FAMILY 05/30/2019 10:55 AM MANAGER FAMILY us Gautam Cope MD LAB BLOOD ORDERABLES Final Resul t [facility] Department [place] [address] documented in this encounter Visit Diagnoses Diagnosis Prostate cancer (HCC) Malignant neoplasm of prostate documented in this encounter Orders Appointment Requests Count Last Ordered Date Fi rst Ordered Date ONCBCN CLINIC APPOINTMENT REQUEST 1 020 ONCBCN INJECTION APPOINTMENT REQUEST 1 05/13 ONCBCN LAB APPOINTMENT 1 05/30/2019 documented in this encounter Care Teams Central Office Repairer Supervisor Relationship Specialty Start Date End Date Kraig Ching MD [address] [facility] [address] [place] [address] PCP - General 07/10/16 Gautam Cope MD [id number] [place] [address] Medical Oncologist/Brake Lining Finisher Asbestos Medical Oncology 08/18/18 Tramaine Roe MD [address] [facility] [address] [place] [address] Referring Physician Urology 08/18/18 Sukhwinder Uribe MD [address] [facility] [address] [place] [address] Consulting Physician Urology 08/18/18 Shay Guillermo MD [address] [address] Referring Physician Urology 08/18/18 Marsha Landis, RN Registered Nurse 11/17/18 Ilene Fragoso, SHEA [address] [facility] [address] [place] [address] Dining Room Tables Set Up Attendant 12/23/18 11/01/19 documented as of this encounter
--- OUTSIDE RECORDS SUMMARY | 2024-03-31 05:00 | XMS_ITS | Encounter Summary ---
Author Organization [facility] Address [address] [place] [address] Phone Care Team Providers Care Lens Block Gauger Name Role Phone Kraig Ching MD Primary Care Provider [phone] Gautam Cope MD Unavailable Tramaine Roe MD Unavailable [phone] Sukhwinder Uirbe MD Unavailable [phone] Shay Guillermo MD Unavailable [phone] Marsha Landis RN Unavailable Unavailab Ilene Kaur RN Unavailable [phone] Reason for Visit * Episode Based Medications (Routine) - Authorized Specialty Diagnoses / Procedures Referred By Contac t Referred To Contact Oncology Diagnoses Prostate cancer (HCC) Procedures ID LEUPROLIDE ACETATE SUSPNSION Leuprolide Every 3 Months - Prostate Gautam Cope MD [address] [facility] [address] [place] [address] Phone: tel: fax: [facility] - Infusion [address] [facility] [address] [place] [address] Referral ID Status Reason Start Date Expiration Date V isits Requested Visits Authorized [id number] Authorized 09/06/2018 07/11/2024 1 50 Encounter Details Date Type Department Care Team (Late st Contact Info) Description 03/07/2019 9:00 AM SCRAP CHARGER Lab [facility] Oncology [address] [facility] 7th [place] [address] [place] [address] Prostate cancer ([facility]) Social History Tobacco Use Types Packs/Day Years [...] file Legal Sex Male 4:46 PM SCRAP CHARGER Gender Identity Not on file Sexual Orientation [...] Care Management No change(03/23 1:47 PM SCRAP CHARGER) No Ingrid Oden, RN Note: Problem: Chronic Pain Goals: 1. Minimize further functional decline 2. Maximize quality of life 3. Control pain Strategies: - Activity/exercise program recommendation - Conservative stepwise pain medicine strategy with multi-disciplinary approach - Recommend healthy lifestyle strategies and compensatory methods as needed documented as of this encounter Procedures Procedure Name Priority Date/Time Associated Diagnosis Comments DIFFERENTIAL AUTO Routine 03/07/2019 8:4 8 AM SCRAP CHARGER Prostate cancer (CMS/HCC) CBC WITH AUTO DIFFERENTIAL Routine 03/07/2019 8:48 AM SCRAP CHARGER Prostate cancer (CMS/HCC) PRO B-TYPE NATRIURETIC PEPTIDE Routine 03/07/2019 8:48 AM SCRAP CHARGER Prostate cancer (CMS/HCC) PSA DIAGNOSTIC Routine 03/07/2019 8:48 AM SCRAP CHARGER Prostate cancer (CMS/HCC) LACTATE DEHYDROGENASE Routine 03/07/2019 8:48 AM SCRAP CHARGER Prostate cancer (CMS/HCC) HEMOGLOBIN A1C Routine 03/07/2019 8:48 AM SCRAP CHARGER Prostate cancer (CMS/HCC) COMPREHENSIVE METABOLIC PANEL Routine 03/07/2019 8:48 AM SCRAP CHARGER Prostate cancer (CMS/HCC) documented in this encounter Results * Differential, auto (03/07/2019 8:48 AM SCRAP CHARGER) Neutrophil abs 5.3 1.8 - 6.6 K/cumm [facility] Comment:Testing performed by : [facility], [address] [place] [phone] Lymphocyte abs 1.7 1.2 - 3.3 K/cumm [facility] Comment:Testing performed by : [facility], [address] [place] [phone] Monocyte abs 0.8 0.2 - 1.2 K/cumm [facility] Comment:Testing performed by : [facility], [address] [place] [phone] Eosinophil abs 0.1 0.0 - 0.5 K/cumm [facility] Comment:Testing performed by : [facility], [address] [place] [phone] Basophil abs 0.0 0.0 - 0.2 K/cumm [facility] Comment:Testing performed by : [facility], [address] [place] [phone] Neutrophil pct 66.6 % [facility] Comment: Interpretive Data Percent cell count reference ranges are not reported, since discordance with absolute values may lead to misinterpretation of CBC data. Current Interpretive Data was last revised on 2017. Testing performed by: [facility], [address] [place] [phone] Lymphocyte pct 20.9 % [facility] Comment: Interpretive Data Percent cell count reference ranges are not reported, since discordance with absolute values may lead to misinterpretation of CBC data. Current Interpretive Data was last revised on 2017. Testing performed by: [facility], [address] [place] [phone] Monocyte pct 10.3 % [facility] Comment:Testing performed by : [facility], [address] [place] [phone] Eosinophil pct 1.7 % [facility] Comment:Testing performed by : [address] [phone] Basophil pct 0.5 % [facility] Comment:Testing performed by : [facility], [address] [place] [phone] Blood specimen (specimen) 03/07/2019 8:48 AM SCRAP CHARGER 03/07/2019 8:49 AM SCRAP CHARGER us Gautam Cope MD LAB BLOOD ORDERABLES Final Resul t [facility] [place] [address] * (ABNORMAL) CBC with auto differential (03/07/2019 8:48 AM SCRAP CHARGER) WBC 7.9 3.8 - 9.8 K/cumm [facility] Comment:Testing performed by : [facility], [address] [place] [address] Hgb 12.1(L) 13.8 - 17.2 g/dL [facility] Comment:Testing performed by : [place] [address] Hct 36.7(L) 40.7 - 50.3 % [facility] Comment:Testing performed by : [facility], [address] [place] [address] Plt 358 140 - 440 K/cumm [facility] Comment:Testing performed by : [place] [address] MPV 7.6 6.8 - 10.4 fL [facility] Comment:Testing performed by : [place] [address] RBC 3.99(L) 4.50 - 5.70 M/cumm [facility] Comment:Testing performed by : [place] [address] MCV 92.0 80.0 - 97.6 fL [facility] Comment:Testing performed by : [place] [address] MCH 30.4 26.7 - 33.7 pg [facility] Comment:Testing performed by : [place] [address] MCHC 33.1 32.7 - 35.5 g/dL [facility] Comment:Testing performed by : [place] [address] RDW CV 13.8 11.8 - 14.6 % [facility] Comment:Testing performed by : [place] [address] NRBC abs 0.00 0.00 - 0.01 K/cumm [facility] Comment:Testing performed by : [place] [phone] Blood specimen (specimen) 03/07/2019 8:48 AM SCRAP CHARGER 03/07/2019 8:49 AM SCRAP CHARGER Gautam Cope MD LAB BLOOD ORDERABLES Final Resul t Performing Organization Address [facility] de Phone Number [facility] [place] [address] * (ABNORMAL) Hemoglobin A1c (03/07/2019 8:48 AM SCRAP CHARGER) Hgb A1C 10.1(H) 4.0 - 5.6 % [facility] Estimated Average Glucose 243 mg/dL [facility] Comment: The ADA recommends reporting an estimated Average Glucose (eAG) with all Hemoglobin A1c results using the equation derived from a study of 507 normal and diabetic adults. ??Minority populations were underrepresented and children were not included. ?? (Diabetes Care 31:3196-5040, 2008). ??The eAG is not equivalent to a fasting glucose. Blood specimen (specimen) 03/07/2019 8:48 AM SCRAP CHARGER 03/07/2019 8:55 AM SCRAP CHARGER Gautam Cope MD LAB BLOOD ORDERABLES Final Resul t Performing Organization Address [facility] de Phone Number [facility] [place] [address] * Pro B-type natriuretic peptide (03/07/2019 8:48 AM SCRAP CHARGER) NT-proBNP 155 <=450 pg/mL [facility] Comment: Interpretive Comments: A. Dyspnea in Acute Care Setting All Ages: ?< 300 pg/ml, acute heart failure unlikely. < 50 yrs: ?300 - 450 pg/ml, further investigation warranted. ? > 450 pg/ml, acute heart failure likely. 50 - 74 yrs: ? 300 - 900 pg/ml, further investigation warranted. ? > 900 pg/ml, acute heart failure likely . > or = 75 yrs: ? 450 - 1800 pg/ml, further investigation warranted. ? > 1800 pg/ml, acute heart failure likely. B. Non-acute Setting < 75 yrs ? < 125 pg/ml, rules out heart failure. ? > or = 125 pg/ml, further investigation warranted. > or = 75 yrs ?< 450 pg/ml, rules out heart failure. ? > or = 450 pg/ml, further investigation warranted. - Knowledge of each individual patient's NT-proBNP range may be more useful than using similar cut-points for every patient. Please note that marked elevations in NT-proBNP levels may be observed in state other than Left Ventricular Congestive Failure, including: acute coronary syndromes, right heart strain/failure (including pulmonary embolism and cor pulmonale), critical illness, renal failure, as well as advanced age. - References: 1. Tanisha JL et.al. Eur Heart J. 2006:27:330-337. 2. Natasha RW, Osvaldo TAYLOR. J. AM Eric Cardiol: Cardiovasc Imag. 2009;2: 216- 225. Interpretive Data Last Revised Date: 2017. Blood specimen (specimen) 03/07/2019 8:48 AM SCRAP CHARGER 03/07/2019 8:55 AM SCRAP CHARGER us Gautam Cope MD LAB BLOOD ORDERABLES Final Resul t [facility] [place] [address] * Lactate dehydrogenase (LD) (03/07/2019 8:48 AM SCRAP CHARGER) Lactate dehydrogenase (LDH) 191 100 - 250 Units/L [facility] Blood specimen (specimen) 03/07/2019 8:48 AM SCRAP CHARGER 03/07/2019 8:55 AM SCRAP CHARGER us Gautam Cope MD LAB BLOOD ORDERABLES Final Resul t [facility] [place] [address] * (ABNORMAL) Comprehensive metabolic panel (03/07/2019 8:48 AM SCRAP CHARGER) Sodium 138 135 - 145 mmol/L [facility] Potassium, pl 4.2 3.3 - 4.9 mmol/L [facility] Chloride 102 97 - 110 mmol/L [facility] CO2 28 22 - 32 mmol/L [facility] Anion gap 8 2 - 15 mmol/L [facility] BUN 35(H) 8 - 25 mg/dL [facility] Creatinine 1.75(H) 0.80 - 1.30 mg/dL [facility] Glucose 229(H) 70 - 199 mg/dL [facility] [...] interpretive data was last revised 2017. Calcium 9.5 8.5 - 10.3 mg/dL [facility] Bilirubin, total 0.3 0.1 - 1.2 mg/dL [facility] Protein, pl 6.7 6.5 - 8.5 g/dL [facility] Albumin 4.1 3.5 - 5.0 g/dL [facility] Alk phos 94 40 - 130 Units/L [facility] ALT 23 7 - 55 Units/L [facility] AST 21 10 - 50 Units/L [facility] Blood specimen (specimen) 03/07/2019 8:48 AM SCRAP CHARGER 03/07/2019 8:55 AM SCRAP CHARGER us Gautam Cope MD LAB BLOOD ORDERABLES Final Resul t Performing Organization Address [facility] de Phone Number [facility] [place] [address] * PSA diagnostic (03/07/2019 8:48 AM SCRAP CHARGER) PSA-Total 0.20 <=6.20 ng/mL [facility] Comment: Interpretive Data ?AGE ? SEX ?REFERENCE INTERVAL 0 minutes-150 years ?Female ?None 0 minutes-49 years ? Male ?None ? 50-59 years ? Male ?0-3.90 ? 60-69 years ? Male ?0-5.40 ? 70-79 years ? Male ?0-6.20 ? 80-150 years ?Male ?0-6.20 Current interpretive data last revised 2017. Blood specimen (specimen) 03/07/2019 8:48 AM SCRAP CHARGER 03/07/2019 8:55 AM SCRAP CHARGER us Gautam Cope MD LAB BLOOD ORDERABLES Final Resul t Performing Organization Address [facility] de Phone Number [facility] [place] [address] documented in this encounter Visit Diagnoses Diagnosis Prostate cancer (HCC) Malignant neoplasm of prostate documented in this encounter Orders Appointment Requests Count Last Ordered Date Fi rst Ordered Date ONCBCN LAB APPOINTMENT 1 03/07/2019 documented in this encounter Care Teams Lens Block Gauger Relationship Specialty Start Date End Date Kraig Ching MD [address] [place] [address] PCP - General 07/10/16 Gautam Cope MD [address] [place] [address] Medical Oncologist/Nurse Esthetician Medical Oncology 08/18/18 Tramaine Roe MD [address] [place] [address] Referring Physician Urology 08/18/18 Sukhwinder Uribe MD [address] [facility] [address] [place] [address] Consulting Physician Urology 08/18/18 Shay Guillermo MD [address] [facility] [address] [place] [address] Referring Physician Urology 08/18/18 Marsha Landis, RN Registered Nurse 11/17/18 Ilene Fragoso, SHEA [address] [facility] [address] [place] [address] Device Engineer 12/23/18 11/01/19 documented as of this encounter
--- OUTSIDE RECORDS SUMMARY | 2024-03-31 05:00 | XMS_ITS | Encounter Summary ---
Author Organization [facility] Address [address] [place] [address] Phone Care Team Providers Care Patient Safety Coordinator Name Role Phone Kraig Ching MD Primary Care Provider [phone] Gautam Cope MD Unavailable Tramaine Roe MD Unavailable [phone] Sukhwinder Uribe MD Unavailable Shay Guillermo MD Unavailable [phone] Marsha Landis RN Unavailable Unavailab Ilene Kaur RN Unavailable [phone] Reason for Visit * Episode Based Medications (Routine) - Authorized Specialty Diagnoses / Procedures Referred By Contac t Referred To Contact Oncology Diagnoses Prostate cancer (HCC) Procedures MI LEUPROLIDE ACETATE SUSPNSION Leuprolide Every 3 Months - Prostate Gautam Cope MD [address] [facility] [address] [place] [address] Phone: tel: fax: [facility] - Infusion [address] [facility] [address] [place] [address] Referral ID Status Reason Start Date Expiration Date V isits Requested Visits Authorized [id number] Authorized 09/06/2018 07/11/2024 1 50 Encounter Details Date Type Department Care Team (Late st Contact Info) Description 03/07/2019 10:00 AM RESTAURANT BUSSER Office Visit [facility] Oncology [address] [facility] 7th [place] [address] [place] [address] Gautam Cope MD [address] [facility] [address] [place] [address] Prostate cancer (CMS/HCC) (Primary Dx) Social History [...] on file Legal Sex Male 4:46 PM RESTAURANT BUSSER Gender Identity Not on file Sexual Orientation Not on file documented as of this encounter Last Filed Vital Signs Vital Sign Reading Time Taken Comments Blood Pressure 134/74 03/07/2019 8:53 AM RESTAURANT BUSSER Pulse 82 03/07/2019 8:53 AM RESTAURANT BUSSER Temperature 37.1 ??C (98.7 ??F) 03/07/2019 8:53 AM CS T Respiratory Rate 18 03/07/2019 8:53 AM RESTAURANT BUSSER Oxygen Saturation 95% 03/07/2019 8:53 AM RESTAURANT BUSSER Inhaled Oxygen Concentration - - Weight 100.9 kg (222 lb 6.4 oz) 019 8:53 AM RESTAURANT BUSSER Height - - Body Mass Index 31.46 02/17/2019 1:58 PM RESTAURANT BUSSER documented in this encounter Progress Notes * Gautam Cope MD - 03/07/2019 12:00 AM CST PATIENT NAME: DAVID DREW : 1940 [place]: 03/07/2019 Mr. Drew is a 78-year-old with metastatic prostate cancer. He was diagnosed originally in April 1999, when he presented the PSA of 5.5 and a biopsy showed Viviana 3+[address] Guillermo performed a radical prostatectomy in June 2017, showing Viviana 4+3 disease with extracapsular extension and positive margin, but negative lymph nodes. He did undergo adjuvant radiation therapy, finishing in November 1999. By June 2012, his PSA was detectable and beginning to rise. In July 2018, it was up to the double digits, and a pelvic MRI scan showed recurrent local disease, with evidence of metastatic disease at L2. He was started on Casodex followed by Lupron at the end of August 2018, which he has tolerated quite well. He does have hot flashes fairly frequently. He has noticed no change in his urination. He does continue to have low back pain, which predates his known metastatic disease. He has had steroid injections in the past. He is otherwise doing well and working on trying to keep his weight under control. His back pain limits his activities. He remains on Lupron, abiraterone, and prednisone. We talked to him about not having to come back monthly for his abiraterone supply, andhe will work with the pharmacy to have his abiraterone mailed out to him. His insurance company allows no more than a 30-day supply. Other comorbidities include chronic kidney disease, hypertension, paroxysmal atrial fibrillation, diabetes, and hyperlipidemia. Some of his medications recently have been changed to control his symptoms better. All other review of systems are negative. PHYSICAL EXAMINATION: Vital Signs: Shows a male whose weight is 100.9 kg. His BMI is 31.46. Blood pressure is 134/74, pulse 82. He is afebrile. O2 saturation is 95%. Performance Status: His performance status is 80%. Nodes: He has no palpable cervical adenopathy. Lungs: Show mildly expanded volumes, but clear to auscultation and percussion. Cardiac: Shows an S1 and S2, with an early systolic murmur and occasional extra beats. Abdomen: His abdominal exam shows no hepatosplenomegaly or palpable masses. Bowel sounds are present. Extremities: Trace edema. Neurologic: Nonfocal. LABORATORY DATA: Laboratories show a hemoglobin of 12.1, white count 7900, platelet count 358,000. Other labs from today are pending. His last PSA in November had dropped down to 0.28; it was in the double digits priorto starting hormonal therapy. Today his PSA is 0.2, but his A1c is elevated at 10.1. ASSESSMENT AND PLAN: Metastatic prostate cancer. The patient remains on Lupron, abiraterone, and very low dose prednisone, at basically physiological doses. He is overall doing well, with a nice serological response. We will see him again in 3 months, and currently, at his 1-year anniversary, we will plan on getting a bone scan, CT scan, and bone density. ELECTRONICALLY SIGNED - 03/07/2019 07:52 PM Gautam Cope M.D. employee benefits director GLORIA/lul AURANT BUSSER documented in this encounter Plan of Treatment [...] Chronic Care Management No change(03/23 1:47 PM RESTAURANT BUSSER) No Ingrid Oden, SHEA Note: Problem: Chronic Pain Goals: 1. Minimize further functional decline 2. Maximize quality of life 3. Control pain Strategies: - Activity/exercise program recommendation - Conservative stepwise pain medicine strategy with multi-disciplinary approach - Recommend healthy lifestyle strategies and compensatory methods as needed documented as of this encounter Results * Pro B-type natriuretic peptide (03/07/2019 8:48 AM RESTAURANT BUSSER) NT-proBNP 155 <=450 pg/mL MERLINE HARRIS Comment: Interpretive Comments: A. Dyspnea in Acute [...] as advanced age. - References: 1. Tanisha GARCIA et.al. Eur Heart J. 2006:27:330-337. 2. Natasha AYERS, Osvaldo TAYLOR. J. AM Eric Cardiol: Cardiovasc Imag. 2009;2: 216- 225. Interpretive Data Last Revised Date: 2017. Blood specimen (specimen) 03/07/2019 8:48 AM RESTAURANT BUSSER 03/07/2019 8:55 AM RESTAURANT BUSSER Gautam Cope MD LAB BLOOD ORDERABLES Final Resul t Performing Organization Address [facility] de Phone Number [facility] [place] [address] * (ABNORMAL) Hemoglobin A1c (03/07/2019 8:48 AM RESTAURANT BUSSER) Hgb A1C 10.1(H) 4.0 - 5.6 % [facility] Estimated Average Glucose 243 mg/dL [facility] Comment: The ADA recommends reporting an estimated Average Glucose (eAG) with all Hemoglobin A1c results using the equation derived from a study of 507 normal and diabetic adults. ??Minority populations were underrepresented and children were not included. ?? (Diabetes Care 31:6807-9005, 2008). ??The eAG is not equivalent to a fasting glucose. Blood specimen (specimen) 03/07/2019 8:48 AM RESTAURANT BUSSER 03/07/2019 8:55 AM RESTAURANT BUSSER Gautam Cope MD LAB BLOOD ORDERABLES Final Resul t Performing Organization Address [facility] de Phone Number [facility] [place] [address] documented in this encounter Visit Diagnoses Diagnosis Prostate cancer (HCC)- Primary Malignant neoplasm of prostate documented in this encounter Orders Appointment Requests Count Last Ordered Date Fi rst Ordered Date ONCBCN CLINIC APPOINTMENT REQUEST 1 019 documented in this encounter Care Teams Patient Safety Coordinator Relationship Specialty Start Date End Date Kraig Ching MD [address] [facility] [address] [place] [address] PCP - General 07/10/16 Gautam Cope MD [address] [facility] [address] [place] [address] Medical Oncologist/Tool Grinder Operator Medical Oncology 08/18/18 Tramaine Roe MD [address] [facility] [address] [place] [address] Referring Physician Urology 08/18/18 Sukhwinder Uribe MD [address] [facility] [address] [place] [address] Consulting Physician Urology 08/18/18 Shay Guillermo MD [address] [facility] [address] [place] [address] Referring Physician Urology 08/18/18 Marsha Landis, RN Registered Nurse 11/17/18 Ilene Fragoso, RN [address] [place] [address] [address] [place], [place] [id number] Drophammer Operator 12/23/18 11/01/19 documented as of this encounter
--- OUTSIDE RECORDS SUMMARY | 2024-03-31 05:00 | XMS_ITS | Encounter Summary ---
Author Organization [facility] Address [address] [place] [address] Care Team Providers Care Blow Mold Technician Name Role Phone Kraig Ching MD Primary Care Provider [phone] Gautam Cope MD Unavailable Tramaine Roe MD Unavailable [phone] Sukhwinder Uribe MD Unavailable [phone] Shay Guillermo MD Unavailable [phone] Marsha Landis RN Unavailable Unavailab Ilene Kaur RN Unavailable Encounter Details Date Type Department Care Team (Late st Contact Info) Description 05/22/2019 5:15 PM TICKET SORTER Lab [address] [address] Social History Tobacco Use Types [...] on file Legal Sex Male 4:46 PM TICKET SORTER Gender Identity Not on file Sexual Orientation [...] Chronic Care Management No change(03/23 1:47 PM TICKET SORTER) No Ingrid Oden, RN Note: Problem: Chronic Pain Goals: 1. Minimize further functional decline 2. Maximize quality of life 3. Control pain Strategies: - Activity/exercise program recommendation - Conservative stepwise pain medicine strategy with multi-disciplinary approach - Recommend healthy lifestyle strategies and compensatory methods as needed documented as of this encounter Visit Diagnoses Not on filedocumented in this encounter Care Teams Blow Mold Technician Relationship Specialty Start Date End Date Kraig Ching MD [address] [facility] [address] [place] [address] PCP - General 07/10/16 Gautam Cope MD [address] [facility] [address] [place] [address] Medical Oncologist/Emergency Room Physician Medical Oncology 08/18/18 Tramaine Roe MD [address] [facility] [address] [place] [address] Referring Physician Urology 08/18/18 Sukhwinder Uribe MD [address] [facility] [address] [place] [address] Consulting Physician Urology 08/18/18 Shay Guillermo MD [address] [facility] [address] [place] [address] Referring Physician Urology 08/18/18 Marsha Landis, RN Registered Nurse 11/17/18 Ilene Fragoso, RN [address] [facility] [address] [place] [address] Cocktail Server 12/23/18 11/01/19 documented as of this encounter
--- OUTSIDE RECORDS SUMMARY | 2024-03-31 05:00 | XMS_ITS | Encounter Summary ---
Author Organization [facility] Address [address] [place] [address] Phone Care Team Providers Care Precision Lens Technician Name Role Phone Kraig Ching MD Primary Care Provider [phone] Gautam Cope MD Unavailable Tramaine Roe MD Unavailable [phone] Sukhwinder Uribe MD Unavailable [phone] Shay Guillermo MD Unavailable [phone] Marsha Landis RN Unavailable Unavailab Ilene Kaur RN Unavailable [phone] Encounter Details Date Type Department Care Team (Late st Contact Info) Description 03/03/2019 Orders Only [facility] Oncology [address] 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 [facility] Chronic Pain Care Plan Chronic Care Management No change(03/23 1:47 PM FABRICATOR ARTIFICIAL BREAST) No Ingrid Oden, SHEA Note: Problem: Chronic [...] prostate documented in this encounter Care Teams Precision Lens Technician Relationship Specialty Start Date End Date Kraig Ching MD [address] [facility] [address] [place] [address] PCP - General 07/10/16 Gautam Cope MD [address] [facility] [address] [place] [address] Medical Oncologist/Rodent Exterminator Medical Oncology 08/18/18 Tramaine Roe MD [address] [facility] [address] [place] [address] Referring Physician Urology 08/18/18 Sukhwinder Uribe MD [address] [facility] [address] [place] [address] Consulting Physician Urology 08/18/18 Shay Guillermo MD [address] [facility] [address] [place] [address] Referring Physician Urology 08/18/18 Marsha Landis, RN Registered Nurse 11/17/18 Ilene Fragoso RN [address] [facility] [address] [place] [address] Mineral Engineer 12/23/18 11/01/19 documented as of this encounter
--- OUTSIDE RECORDS SUMMARY | 2024-03-31 05:00 | XMS_ITS | Encounter Summary ---
Author Organization [facility] Address [address] [facility] [address] [place] [address] Care Team Providers Care Lace Roller Name Role Phone Kraig Ching MD Primary Care Provider [phone] Gautam Cope MD Unavailable Tramaine Roe MD Unavailable [phone] Sukhwinder Uribe MD Unavailable [phone] Sahy Guillermo MD Unavailable Marsha Landis RN Unavailable Unavailab Ilene Kaur RN Unavailable [phone] Reason for Visit * Reason Onset Date Comments Sinusitis 05/12/2019 Encounter Details Date Type Department Care Team (Late st Contact Info) Description 05/12/2019 Nurse Triage [facility] [address] [facility] [address] [place] [address] Kraig Ching MD [address] [facility] [address] [place], [place] [id number] Social History Tobacco Use Types Packs/Day Years [...] on file Legal Sex Male 4:46 PM WARDROBE CONSULTANT Gender Identity Not on file Sexual Orientation Not on file documented as of this encounter Miscellaneous Notes * Telephone Encounter - Kraig Ching MD - 05/12/2019 10:39 AM CST Med sent. ROBE CONSULTANT * Telephone Encounter - Wendy Minaya CMA - 05/12/2019 10:28 AM WARDROBE CONSULTANT Please advise. Patient declines appointment. JJ Rider ROBE CONSULTANT * Telephone Encounter - Beatris Vergara RN - 05/12/2019 9:58 AM CST Reason for Disposition ??? Lots of coughing Protocols used: SINUS PAIN AND [id number] Pt reports sinus pain and congestion, non-productive cough, fatigue. Chest feels tight, eyes are watery and face is red. He denies dyspnea, fever, chest pain. He is not taking anything for his symptoms. has same symptoms. Disposition per guideline: Home care/education/call back instruction given:declines appt. Requests medication be sent to [facility] on file. Callback #: [phone]. Tasked PCP ROBE CONSULTANT * Telephone Encounter - Beatris Vergara RN - 05/12/2019 9:55 AM CST Regarding: Possible Sinus Infection ----- Message from Mary Thayer sent at 05/12/2019 9:13 AM WARDROBE CONSULTANT ----- Symptom Based Call Chief Complaint: Possible Sinus Infection Duration: About a week Appointment Details: Non emergent Caller's Callback #: [phone] Additional Comments: sinus issues possible infection yellow drainage, congestion in chest and non productive cough and sinus pain in forehead and temples, slight chills unsure of fever, symptoms reported by patient If practice uses e-visit, condition meets e-visit criteria, and patient has MyChart did you offer e-visit?: na Did you relay expectation for call back (chronometer assembler and adjuster: Red Flag 10-15 min; non- emergent up to 3 hours)(Practice: Red Flag warm transfer; non-emergent up to 24 hours)? Yes 3 hours ROBE CONSULTANT documented in this encounter Plan of Treatment [...] Chronic Care Management No change(03/23 1:47 PM WARDROBE CONSULTANT) No Ingrid Oden RN Note: Problem: Chronic Pain Goals: 1. Minimize further functional decline 2. Maximize quality of life 3. Control pain Strategies: - Activity/exercise program recommendation - Conservative stepwise pain medicine strategy with multi-disciplinary approach - Recommend healthy lifestyle strategies and compensatory methods as needed documented as of this encounter Visit Diagnoses Not on filedocumented in this encounter Care Teams Lace Roller Relationship Specialty Start Date End Date Kraig Ching MD [address] [facility] [address] [place] [address] PCP - General 07/10/16 Gautam Cope MD [address] [facility] [address] [place] [address] Medical Oncologist/In Service Coordinator Medical Oncology 08/18/18 Tramaine Roe MD [address] [facility] [address] [place] [address] Referring Physician Urology 08/18/18 Sukhwinder Uribe MD [address] [facility] [address] [place] [address] Consulting Physician Urology 08/18/18 Shay Guillermo MD [address] [facility] [address] [place] [address] Referring Physician Urology 08/18/18 Marsha Landis, RN Registered Nurse 11/17/18 Ilene Fragoso, RN [address] [facility] [address] [place] [address] Feeder Operator 12/23/18 11/01/19 documented as of this encounter
--- OUTSIDE RECORDS SUMMARY | 2024-03-31 05:00 | XMS_ITS | Encounter Summary ---
Author Organization [facility] Address [address] [place] [address] Phone Care Team Providers Care Patient Service Rep Name Role Phone Kraig Ching MD Primary Care Provider [phone] Gautam Cope MD Unavailable Tramaine Roe MD Unavailable [phone] Sukhwinder Uribe MD Unavailable [phone] Shay Guillermo MD Unavailable [phone] Marsha Landis RN Unavailable Unavailab Ilene Kaur RN Unavailable [phone] Encounter Details Date Type Department Care Team (Latest Contact Info) Description 03/22/2019 Orders Only [facility] Scanning, Provider [...] on file Legal Sex Male 4:46 PM PHOTOENGRAVING PRINTER Gender Identity Not on file Sexual Orientation [...] monitor diabetes and kidney status, etc. [facility] Chronic Pain Care Plan Chronic Care Management No change(03/23 1:47 PM PHOTOENGRAVING PRINTER) No Ingrid Oden, SHEA Note: Problem: Chronic Pain Goals: 1. Minimize further functional decline 2. Maximize quality of life 3. Control pain Strategies: - Activity/exercise program recommendation - Conservative stepwise pain medicine strategy with multi-disciplinary approach - Recommend healthy lifestyle strategies and compensatory methods as needed documented as of this encounter Procedures Procedure Name Priority Date/Time Associated Diagnosis Comments SCAN - LABS 03/22/2019 documented in this encounter Results * SCAN - LABS (03/22/2019) us Provider Scanning Final Result documented in this encounter Visit Diagnoses Not on filedocumented in this encounter Care Teams Patient Service Rep Relationship Specialty Start Date End Date Kraig Ching MD [address] [place] [address] PCP - General 07/10/16 Gautam Cope MD [address] [place] [address] Medical Oncologist/Trauma Nurse Medical Oncology 08/18/18 Tramaine Roe MD [address] [place] [address] Referring Physician Urology 08/18/18 Sukhwinder Uribe MD [address] [facility] [address] [place] [address] Consulting Physician Urology 08/18/18 Shay Guillermo MD [address] [place] [address] Referring Physician Urology 08/18/18 Marsha Landis, RN Registered Nurse 11/17/18 Ilene Fragoso, SHEA [address] [facility] [address] [place] [address] Ice Carver 12/23/18 11/01/19 documented as of this encounter
--- OUTSIDE RECORDS SUMMARY | 2024-03-31 05:00 | XMS_ITS | Encounter Summary ---
Author Organization [facility] Healthcare Address [address] [place] [address] Care Team Providers Care Fusing Machine Feeder Name Role Phone Kraig Ching MD Primary Care Provider [phone] Gautam Cope MD Unavailable Tramaine Roe MD Unavailable [phone] Sukhwinder Uribe MD Unavailable [phone] Shay Guillermo MD Unavailable [phone] Marsha Landis RN Unavailable Unavailab le Encounter Details Date Type Department Care Team (Late st Contact Info) Description 02/01/2020 Telephone [facility] [address] [facility] [address] [place], [place] [id number] Maru Arreola MD PhD [address] [facility] [phone] [place] [address] Social History Tobacco Use Types [...] on file Legal Sex Male 4:46 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 Minimize further functional decline 2. Maximize quality of life 3. Control pain Strategies: - Activity/exercise program recommendation - Conservative stepwise pain medicine strategy with multi-disciplinary approach - Recommend healthy lifestyle strategies and compensatory methods as needed documented as of this encounter Visit Diagnoses Not on filedocumented in this encounter Care Teams Fusing Machine Feeder Relationship Specialty Start Date End Date Kraig Ching MD [address] [place] [address] PCP - General 07/10/16 Gautam Cope MD [address] [place] [address] Medical Oncologist/Advertising Consultant Medical Oncology 08/18/18 Tramaine Roe MD [address] [place] [address] Referring Physician Urology 08/18/18 Sukhwinder Uribe MD [address] [place] [address] Consulting Physician Urology 08/18/18 Shay Guillermo MD [address] [place] [address] Referring Physician Urology 08/18/18 Marsha Landis, RN Registered Nurse 11/17/18 documented as of this encounter
--- OUTSIDE RECORDS SUMMARY | 2024-03-31 05:00 | XMS_ITS | Encounter Summary ---
Author Organization [facility] Address [address] [place] [address] Phone Care Team Providers Care Public Health Technologist Name Role Phone Kraig Ching MD Primary Care Provider [phone] Gautam Cope MD Unavailable Tramaine Roe MD Unavailable [phone] Sukhwinder Uribe MD Unavailable [phone] Shay Guillermo MD Unavailable [phone] Marsha Landis RN Unavailable Unavailab Ilene Kaur RN Unavailable [phone] Encounter Details Date Type Department Care Team (Late st Contact Info) Description 08/28/2019 Orders Only [facility] Nephrology [address] [facility] Advanced Medicine 5th [place] [address] [place] [address] Lin Guerrero MD [facility] [facility] [address] [place], [place] [id number] Essential hypertension (Primary Dx); Stage 3 chronic kidney disease (CMS/HCC); Vitamin D deficiency disease; 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); Renal osteodystrophy; Screening for hematuria or proteinuria Social History Tobacco Use Types Packs/Day Years [...] on file 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 [facility] Chronic Pain Care Plan Chronic Care Management No change(03/23 1:47 PM POWER LINEMAN) No Ingrid Oden, SHEA Note: Problem: Chronic Pain Goals: 1. Minimize further functional decline 2. Maximize quality of life 3. Control pain Strategies: - Activity/exercise program recommendation - Conservative stepwise pain medicine strategy with multi-disciplinary approach - Recommend healthy lifestyle strategies and compensatory methods as needed documented as of this encounter Procedures Procedure Name Priority Date/Time Associated Diagnosis Comments COPY RECEIVED FROM Routine 09/04/2020 3: 28 PM CDT COPY(IES) SENT TO: Routine 09/04/2020 3: 28 PM CDT URINALYSIS AND REFLEX TO MICROSCOPIC Routine 09/04/2020 3:28 PM CDT Essential hypertension Stage 3 chronic kidney disease Vitamin D deficiency disease Anemia in stage 3 chronic kidney disease Renal osteodystrophy Screening for hematuria or proteinuria CBC WITH AUTO DIFFERENTIAL Routine 09/04/2020 3:28 PM CDT Essential hypertension Stage 3 chronic kidney disease Vitamin D deficiency disease Anemia in stage 3 chronic kidney disease Renal osteodystrophy Screening for hematuria or proteinuria VITAMIN D 25 HYDROXY Routine 09/04/2020 3:28 PM CDT Essential hypertension Stage 3 chronic kidney disease Vitamin D deficiency disease Anemia in stage 3 chronic kidney disease Renal osteodystrophy Screening for hematuria or proteinuria PTH Routine 09/04/2020 3:28 PM CDT Essential hypertension Stage 3 chronic kidney disease Vitamin D deficiency disease Anemia in stage 3 chronic kidney disease Renal osteodystrophy Screening for hematuria or proteinuria RENAL FUNCTION PANEL Routine 09/04/2020 3:28 PM CDT Essential hypertension Stage 3 chronic kidney disease Vitamin D deficiency disease Anemia in stage 3 chronic kidney disease Renal osteodystrophy Screening for hematuria or proteinuria documented in this encounter Results * Copy received from (09/04/2020 3:28 PM CDT) Copy Rec'd from: [facility] Comment: ?[facility] ?[id number] ?[place] [address] 09/04/2020 3:28 PM CDT 09/04/2020 3:30 PM CDT Narrative [facility] - 09/05/2020 12:26 PM CDT FASTING:NO FASTING: NO us Lin Guerrero MD LAB BLOOD ORDERABLES Final Resul t [facility] * COPY(IES) SENT TO: (09/04/2020 3:28 PM CDT) COPY(IES) SENT TO: [facility] Comment: ?[facility] ?[address] ?[place] [address] 09/04/2020 3:28 PM CDT 09/04/2020 3:30 PM CDT Narrative [facility] - 09/05/2020 12:19 PM CDT FASTING:NO FASTING: NO Lin Guerrero MD LAB BLOOD ORDERABLES Final Resul t Performing Organization Address [facility] Co de Phone Number [facility] * PTH (09/04/2020 3:28 PM CDT) Parathyroid hormone, intact 40 14 - 64 pg/mL [facility] Comment: Interpretive Guide ?Intact PTH ? Calcium ? ------- Normal Parathyroid ?Normal ? Normal Hypoparathyroidism ?Low or Low Normal ?Low Hyperparathyroidism ?? Primary ?Normal or High ? High ?? Secondary ?High ? Normal or Low ?? Tertiary ? High ? High Non-Parathyroid ?? Hypercalcemia ?Low or Low Normal ?High Blood specimen (specimen) 09/04/2020 3:28 PM CDT 09/04/2020 3:30 PM CDT Narrative [facility] - 09/05/2020 12:26 PM CDT FASTING:NO FASTING: NO Lin Guerrero MD LAB BLOOD ORDERABLES Final Resul t Performing Organization Address [facility]/ZIP Co de Phone Number [facility] [address] [address] * (ABNORMAL) Urinalysis reflex to microscopic (09/04/2020 3:28 PM CDT) Color, ur YELLOW YELLOW [facility] Appearance, ur CLEAR CLEAR [facility] Specific gravity 1.016 1.001 - 1.035 [facility] pH, ur 6.0 5.0 - 8.0 [facility] Glucose, ur 1+(A) NEGATIVE [facility] Bilirubin, ur NEGATIVE NEGATIVE [facility] Ketones, ur NEGATIVE NEGATIVE [facility] Blood, ur NEGATIVE NEGATIVE [facility] Protein, ur, quant NEGATIVE NEGATIVE [facility] Nitrites, ur NEGATIVE NEGATIVE [facility] Leukocyte esterase, ur 1+(A) NEGATIVE [facility] WBC, ur 20-40(A) < OR = 5 /HPF [facility] RBC, ur NONE SEEN < OR = 2 /HPF [facility] Epithelial cells, squamous, ur NONE SEEN < OR = 5 /HPF [facility] Epithelial cells, transitional CANCELED < OR = 5 /HPF [facility] Comment:Result canceled by t he ancillary. Epithelial cells, renal, ur CANCELED < OR = 3 /HPF [facility] Comment:Result canceled by t he ancillary. Bacteria, ur, quant NONE SEEN NONE SEEN /HPF [facility] Calcium oxalate crystals, ur CANCELED NONE OR FEW /HPF [facility] Comment:Result canceled by t he ancillary. Triple phosphate crystals, ur CANCELED NONE OR FEW /HPF [facility] Comment:Result canceled by t he ancillary. Uric acid crystals, ur CANCELED NONE OR FEW /HPF [facility] Comment:Result canceled by t he ancillary. Amorphous crystals, ur CANCELED NONE OR FEW /HPF [facility] Comment:Result canceled by t he ancillary. Crystals, ur CANCELED NONE SEEN /HPF [facility] Comment:Result canceled by t he ancillary. Hyaline cast NONE SEEN NONE SEEN /LPF [facility] Granular casts, ur CANCELED NONE SEEN /LPF [facility] Comment:Result canceled by t he ancillary. Casts CANCELED NONE SEEN /LPF [facility] Comment:Result canceled by t he ancillary. Yeast, ur CANCELED NONE SEEN /HPF [facility] Comment:Result canceled by t he ancillary. Comments CANCELED [facility] Comment:Result canceled by t he ancillary. Note CANCELED [facility] Comment:Result canceled by t he ancillary. Urine 09/04/2020 3:28 PM CDT 09/04/2020 3:30 PM CDT Narrative [facility] - 09/05/2020 12:26 PM CDT FASTING:NO FASTING: NO us Lin Guerrero MD LAB URINE ORDERABLES Final Resul t [facility] [address] [place] [address] * (ABNORMAL) CBC with auto differential (09/04/2020 3:28 PM CDT) WBC 12.5(H) 3.8 - 10.8 Thousand/ uL [facility] RBC, POC 4.16(L) 4.20 - 5.80 Million/u L [facility] Hgb 12.2(L) 13.2 - 17.1 g/dL [facility] Hct 37.4(L) 38.5 - 50.0 % [facility] MCV 89.9 80.0 - 100.0 fL [facility] MCH 29.3 27.0 - 33.0 pg [facility] MCHC 32.6 32.0 - 36.0 g/dL [facility] Rdw 13.0 11.0 - 15.0 % [facility] Platelets 400 140 - 400 Thousand/ uL [facility] MPV 9.9 7.5 - 12.5 fL [facility] Neutrophils, abs 10,013(H) 1,500 - 7,800 cells/uL [facility] Neutrophil bands, abs CANCELED 0 - 750 cells/uL [facility] Comment:Result canceled by t he ancillary. Metamyelocytes, abs CANCELED 0 cells/uL [facility] Comment:Result canceled by t he ancillary. Myelocytes, abs CANCELED 0 cells/uL [facility] Comment:Result canceled by t he ancillary. Promyelocytes, abs CANCELED 0 cells/uL [facility] Comment:Result canceled by t he ancillary. Lymphocytes, abs 1,488 850 - 3,900 cells/uL [facility] Monocyte abs 775 200 - 950 cells/uL [facility] Eosinophils, abs 175 15 - 500 cells/uL [facility] Basophils, abs 50 0 - 200 cells/uL [facility] Blast, cell CANCELED 0 cells/uL [facility] Comment:Result canceled by t he ancillary. NRBC abs CANCELED 0 cells/uL [facility] Comment:Result canceled by t ancillary. Neutrophils 80.1 % [facility] Neutrophilic bands CANCELED % [facility] Comment:Result canceled by t he ancillary. Metamyelocyte pct CANCELED % [facility] Comment:Result canceled by t he ancillary. Myelocyte pct CANCELED % [facility] Comment:Result canceled by t ancillary. Promyelocyte pct CANCELED % [facility] Comment:Result canceled by t he ancillary. Lymphocyte pct 11.9 % [facility] Reactive lymph CANCELED 0 - 10 % [facility] Comment:Result canceled by t he ancillary. Monocytes 6.2 % [facility] Eosinophils 1.4 % [facility] Basophils 0.4 % [facility] Blast pct CANCELED % [facility] Comment:Result canceled by t he ancillary. NRBC CANCELED 0 /100 WBC [facility] Comment:Result canceled by t he ancillary. Comment CANCELED [facility] Comment:Result canceled by t he ancillary. Blood specimen (specimen) 09/04/2020 3:28 PM CDT 09/04/2020 3:30 PM CDT Narrative [facility] - 09/05/2020 12:26 PM CDT FASTING:NO FASTING: NO Lin Guerrero MD LAB BLOOD ORDERABLES Final Resul t [facility] [address] [place] [address] * (ABNORMAL) Vitamin D 25 hydroxy (09/04/2020 3:28 PM CDT) Pathologist [facility] Vitamin D 25-OH 19(L) 30 - 100 ng/mL [facility] Comment: Vitamin D Status ? 25-OH Vitamin D: Deficiency: ?<20 ng/mL Insufficiency: ? 20 - 29 ng/mL Optimal: ? > or = 30 ng/mL For 25-OH Vitamin D testing on patients on D2-supplementation and patients for whom quantitation of D2 and D3 fractions is required, the [facility](TM) 25-OH VIT D, (D2,D3), LC/MS/MS is recommended: order code 48604 (patients >2yrs). See Note 1 Note 1 For additional information, please refer to http://education.Hooptap/faq/QCP468 (This link is being provided for informational/ educational purposes only.) Blood specimen (specimen) 09/04/2020 3:28 PM CDT 09/04/2020 3:30 PM CDT Narrative [facility] - 09/05/2020 12:26 PM CDT FASTING:NO FASTING: NO us Lin Guerrero MD LAB BLOOD ORDERABLES Final Resul t [facility] [address] [place] [address] * (ABNORMAL) Renal function panel (09/04/2020 3:28 PM CDT) Glucose 295(H) 65 - 139 mg/dL [facility] Comment: ? Non-fasting reference interval BUN 51(H) 7 - 25 mg/dL [facility] Creatinine 2.87(H) 0.70 - 1.18 mg/dL [facility] Comment: For patients >49 years of age, the reference limit for Creatinine is approximately 13% higher for people identified as -English. eGFR NON-AFR. PRYDEINIG 20(L) > OR = 60 mL/min/1. 73m2 [facility] EGFR 23(L) > OR = 60 mL/min/1. 73m2 [facility] BUN/creat ratio 18 6 - 22 (calc) [facility] Sodium 136 135 - 146 mmol/L [facility] Potassium, pl 5.3 3.5 - 5.3 mmol/L [facility] Chloride 100 98 - 110 mmol/L [facility] CO2 26 20 - 32 mmol/L [facility] Calcium 9.3 8.6 - 10.3 mg/dL [facility] Phosphorus, sr 4.6(H) 2.1 - 4.3 mg/dL [facility] Albumin 4.0 3.6 - 5.1 g/dL [facility] Blood specimen (specimen) 09/04/2020 3:28 PM CDT 09/04/2020 3:30 PM CDT Narrative [facility] - 09/05/2020 12:26 PM CDT FASTING:NO FASTING: NO us Lin Guerrero MD LAB BLOOD ORDERABLES Final Resul t [facility] [address] [place] [address] documented in this encounter Visit Diagnoses Diagnosis Essential hypertension- Primary Unspecified essential hypertension Stage 3 chronic kidney disease (HCC) Vitamin D deficiency disease Unspecified vitamin D deficiency Anemia in stage 3 chronic kidney disease (HCC) Renal osteodystrophy Screening for hematuria or proteinuria Screening for unspecified condition documented in this encounter Care Teams Public Health Technologist Relationship Specialty Start Date End Date Kraig Ching MD [address] [facility] [address] [place] [address] PCP - General 07/10/16 Gautam Cope MD [address] [facility] [address] [place] [address] Medical Oncologist/Service Loss Control Consultant Medical Oncology 08/18/18 Tramaine Roe MD [address] [facility] [address] [place] [address] Referring Physician Urology 08/18/18 Sukhwinder Uribe MD [address] [facility] [address] [place] [address] Consulting Physician Urology 08/18/18 Shay Guillermo MD [address] [facility] [address] [place] [address] Referring Physician Urology 08/18/18 Marsha Landis, RN Registered Nurse 11/17/18 Ilene Fragoso, SHEA [address] [facility] [address] [place] [address] Lathe Machine Operator 12/23/18 11/01/19 documented as of this encounter
--- OUTSIDE RECORDS SUMMARY | 2024-03-31 05:00 | XMS_ITS | Encounter Summary ---
Author Organization [facility] [employer] [facility] Address [address] [place] [address] Phone Care Team Providers Care Lens Mold Setter Name Role Phone Kraig Ching MD Primary Care Provider [phone] Gautam Cope MD Unavailable Tramaine Roe MD Unavailable [phone] Sukhwinder Uribe MD Unavailable [phone] Shay Guillermo MD Unavailable Marsha Landis RN Unavailable Unavailab le Reason for Visit * Episode Based Medications (Routine) - Authorized Specialty Diagnoses / Procedures Referred By Saleem t Referred To Contact Oncology Diagnoses Prostate cancer (HCC) Procedures VA LEUPROLIDE ACETATE SUSPNSION Leuprolide Every 3 Months - Prostate Gautam Cope MD [address] [facility] [address] [place] [address] Phone: tel: fax: [facility] [address] [facility] [address] [place] [address] Referral ID Status Reason Start Date Expiration Date V isits Requested Visits Authorized [id number] Authorized 09/06/2018 07/11/2024 1 50 Encounter Details Date Type Department Care Team (Late st Contact Info) Description 11/14/2019 10:30 AM CDT Lab [facility] Oncology [address] 7th [place] [address] [place] [id number] Prostate cancer (CMS/HCC) Social History Tobacco Use [...] on file 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 [facility] Chronic Pain Care Plan Chronic Care Management No change(03/23 1:47 PM BUFFET SERVER) No Ingrid Oden, RN Note: Problem: Chronic Pain Goals: 1. Minimize further functional decline 2. Maximize quality of life 3. Control pain Strategies: - Activity/exercise program recommendation - Conservative stepwise pain medicine strategy with multi-disciplinary approach - Recommend healthy lifestyle strategies and compensatory methods as needed documented as of this encounter Procedures Procedure Name Priority Date/Time Associated Diagnosis Comments DIFFERENTIAL AUTO Routine 11/14/2019 10: 07 AM CDT Prostate cancer ([facility]) CBC WITH AUTO DIFFERENTIAL Routine 11/14/2019 10:07 AM CDT Prostate cancer ([facility]) PSA DIAGNOSTIC Routine 11/14/2019 10:07 AM CDT Prostate cancer ([facility]) LACTATE DEHYDROGENASE Routine 11/14/2019 10:07 AM CDT Prostate cancer ([facility]) HEMOGLOBIN A1C Routine 11/14/2019 10:07 AM CDT Prostate cancer ([facility]) COMPREHENSIVE METABOLIC PANEL Routine 11/14/2019 10:07 AM CDT Prostate cancer ([facility]) documented in this encounter Results * (ABNORMAL) Differential, auto (11/14/2019 10:07 AM CDT) Neutrophil abs 7.3(H) 1.8 - 6.6 K/cumm [facility] Comment:Testing performed by : [facility], [address] [place] [phone] Lymphocyte abs 1.5 1.2 - 3.3 K/cumm [facility] Comment:Testing performed by : [facility], [address] [place] [phone] Monocyte abs 0.8 0.2 - 1.2 K/cumm [facility] Comment:Testing performed by : [facility], [address] [place] [phone] Eosinophil abs 0.2 0.0 - 0.5 K/cumm [facility] Comment:Testing performed by : [facility], [address] [place] [phone] Basophil abs 0.1 0.0 - 0.2 K/cumm [facility] Comment:Testing performed by : [facility], [address] [place] [phone] Neutrophil pct 74.6 % [facility] Comment: Interpretive Data Percent cell count reference ranges are not reported, since discordance with absolute values may lead to misinterpretation of CBC data. Current Interpretive Data was last revised on 2017. Testing performed by: [facility], [address] [place] [phone] Lymphocyte pct 14.9 % [facility] Comment: Interpretive Data Percent cell count reference ranges are not reported, since discordance with absolute values may lead to misinterpretation of CBC data. Current Interpretive Data was last revised on 2017. Testing performed by: [facility], [address] [place] [phone] Monocyte pct 8.0 % [facility] Comment:Testing performed by : [facility], [address] [place] [phone] Eosinophil pct 1.7 % [facility] Comment:Testing performed by : [facility], [address] [place] [phone] Basophil pct 0.8 % [facility] Comment:Testing performed by : [facility], [address] [place] [phone] Blood specimen (specimen) 11/14/2019 10:07 AM CDT 11/14/2019 10:10 AM CDT us Gautam Cope MD LAB BLOOD ORDERABLES Final Resul t Performing Organization Address [facility] Co de Phone Number [facility] Department [place] [address] * (ABNORMAL) Hemoglobin A1c (11/14/2019 10:07 AM CDT) Pathologist [facility] Hgb A1C 10.0(H) 4.0 - 5.6 % [facility] Estimated Average Glucose 240 mg/dL [facility] Comment: The ADA recommends reporting an estimated Average Glucose (eAG) with all Hemoglobin A1c results using the equation derived from a study of 507 normal and diabetic adults. ??Minority populations were underrepresented and children were not included. ?? (Diabetes Care 31:9971-2270, 2008). ??The eAG is not equivalent to a fasting glucose. Blood specimen (specimen) 11/14/2019 10:07 AM CDT 11/14/2019 10:23 AM CDT Gautam Cope MD LAB BLOOD ORDERABLES Final Resul t Performing Organization Address [facility] Co de Phone Number [facility] Department [place] [address] * Lactate dehydrogenase (LD) (11/14/2019 10:07 AM CDT) [facility] Lactate dehydrogenase (LDH) 175 100 - 250 Units/L [facility] Comment:Testing performed by : [facility], [address] [place] [phone] Blood specimen (specimen) 11/14/2019 10:07 AM CDT 11/14/2019 10:10 AM CDT us Gautam Cope MD LAB BLOOD ORDERABLES Final Resul t Performing Organization Address [facility] Co de Phone Number [facility] [place] [address] * (ABNORMAL) CBC with auto differential (11/14/2019 10:07 AM CDT) [facility] WBC 9.8 3.8 - 9.8 K/cumm [facility] Comment:Testing performed by : [facility], [address] [place] [address] Hgb 12.8(L) 13.8 - 17.2 g/dL [facility] Comment:Testing performed by : [place] [address] Hct 37.7(L) 40.7 - 50.3 % [facility] Comment:Testing performed by : [facility], [address] [place] [address] Plt 337 140 - 440 K/cumm [facility] Comment:Testing performed by : [place] [address] MPV 7.8 6.8 - 10.4 fL [facility] Comment:Testing performed by : [place] [address] RBC 4.23(L) 4.50 - 5.70 M/cumm [facility] Comment:Testing performed by : [place] [address] MCV 89.3 80.0 - 97.6 fL [facility] Comment:Testing performed by : [place] [address] MCH 30.3 26.7 - 33.7 pg [facility] Comment:Testing performed by : [place] [address] MCHC 33.9 32.7 - 35.5 g/dL [facility] Comment:Testing performed by : [place] [address] RDW CV 14.6 11.8 - 14.6 % [facility] Comment:Testing performed by : [place] [address] NRBC abs 0.00 0.00 - 0.01 K/cumm [facility] Comment:Testing performed by : [place] [address] Blood specimen (specimen) 11/14/2019 10:07 AM CDT 11/14/2019 10:10 AM CDT us Gautam Cope MD LAB BLOOD ORDERABLES Final Resul t [facility] Department [place] [address] * (ABNORMAL) Comprehensive metabolic panel (11/14/2019 10:07 AM CDT) Sodium 139 135 - 145 mmol/L [facility] Comment:Testing performed by : [facility], [address] [place] [phone] Potassium, pl 4.3 3.3 - 4.9 mmol/L [facility] Comment:Testing performed by : [facility], [address] [place] [phone] Chloride 100 97 - 110 mmol/L [facility] Comment:Testing performed by : [facility], [address] [place] [phone] CO2 29 22 - 32 mmol/L [facility] Comment:Testing performed by : [facility], [address] [place] [phone] Anion gap 10 2 - 15 mmol/L [facility] Comment:Testing performed by : [facility], [address] [place] [phone] BUN 37(H) 8 - 25 mg/dL [facility] Comment:Testing performed by : [facility], [address] [place] [phone] Creatinine 2.19(H) 0.80 - 1.30 mg/dL [facility] Comment:Testing performed by : [facility], [address] [place] [phone] Glucose 142 70 - 199 mg/dL [facility] Comment: [...] was last revised 2017. Testing performed by: [facility], [address] [place] [phone] Calcium 9.6 8.5 - 10.3 mg/dL [facility] Comment:Testing performed by : [facility], [address] [place] [phone] Bilirubin, total 0.5 0.1 - 1.2 mg/dL [facility] Comment:Testing performed by : [address] [phone] Protein, pl 6.7 6.5 - 8.5 g/dL [facility] Comment:Testing performed by : [address] [phone] Albumin 4.2 3.5 - 5.0 g/dL [facility] Comment:Testing performed by : [facility], [address] [place] [phone] Alk phos 110 40 - 130 Units/L [facility] Comment:Testing performed by : [address] [phone] ALT 13 7 - 55 Units/L [facility] Comment:Testing performed by : [address] [phone] AST 13 10 - 50 Units/L [facility] Comment:Testing performed by : [facility], [address] [place] [phone] Blood specimen (specimen) 11/14/2019 10:07 AM CDT 11/14/2019 10:10 AM CDT us Gautam Cope MD LAB BLOOD ORDERABLES Final Resul t [facility] Department [place] [address] * PSA diagnostic (11/14/2019 10:07 AM CDT) Pathologist [facility] PSA-Total <0.10 <=6.20 ng/mL [facility] Comment: Interpretive Data ?AGE ? SEX ?REFERENCE INTERVAL 0 minutes-150 years ?Female ?None 0 minutes-49 years ? Male ?None ? 50-59 years ? Male ?0-3.90 ? 60-69 years ? Male ?0-5.40 ? 70-79 years ? Male ?0-6.20 ? 80-150 years ?Male ?0-6.20 Current interpretive data last revised 2017. Blood specimen (specimen) 11/14/2019 10:07 AM CDT 11/14/2019 10:35 AM CDT us Gautam Cope MD LAB BLOOD ORDERABLES Final Resul t Performing Organization Address City/State/[facility] Co de Phone Number [facility] Department [place] [address] documented in this encounter Visit Diagnoses Diagnosis Prostate cancer (HCC) Malignant neoplasm of prostate documented in this encounter Orders Appointment Requests Count Last Ordered Date Fi rst Ordered Date ONCBCN LAB APPOINTMENT 1 11/14/2019 documented in this encounter Care Teams Lens Mold Setter Relationship Specialty Start Date End Date Kraig Ching MD [address] [place] [address] PCP - General 07/10/16 Gautam Cope MD [address] [place] [address] Medical Oncologist/Engineering Mgr Medical Oncology 08/18/18 Tramaine Roe MD [address] [facility] [address] [place] [address] Referring Physician Urology 08/18/18 Sukhwinder Uribe MD [address] [facility] [address] [place] [address] Consulting Physician Urology 08/18/18 Shay Guillermo MD [address] [facility] [address] [place] [address] Referring Physician Urology 08/18/18 Marsha Landis, RN Registered Nurse 11/17/18 documented as of this encounter
--- OUTSIDE RECORDS SUMMARY | 2024-03-31 05:00 | XMS_ITS | Encounter Summary ---
Author Organization [facility] Address [address] [facility] [address] [place] [address] Care Team Providers Care Mutual Funds Agent Name Role Phone Kraig Ching MD Primary Care Provider [phone] Gautam Cope MD Unavailable Tramaine Roe MD Unavailable [phone] Sukhwinder Uribe MD Unavailable Shay Guillermo MD Unavailable Marsha Landis RN Unavailable Unavailab Ilene Kaur RN Unavailable [phone] Reason for Visit * Reason Onset Date Comments Scheduling of Tele Health visit 09/08/2019 Encounter Details Date Type Department Care Team (Late st Contact Info) Description 09/08/2019 Telephone [facility] [address] [facility] [address] [place] [address] Kraig Ching MD [address] [facility] [address] [place], [place] [address] Scheduling of Tele Health visit Social History Tobacco Use Types Packs/Day Years [...] on file 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 Advised patient of message sent via [employer]. Patient requested information be relayed. Patient uncertain if computer or ipad would be used. Indicated would begin to monitor on My Chart. 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 Minimize further functional decline 2. Maximize quality of life 3. Control pain Strategies: - Activity/exercise program recommendation - Conservative stepwise pain medicine strategy with multi-disciplinary approach - Recommend healthy lifestyle strategies and compensatory methods as needed documented as of this encounter Visit Diagnoses Not on filedocumented in this encounter Care Teams Mutual Funds Agent Relationship Specialty [place] [address] [place] [address] [address] [place] [address] PCP - General 07/10/16 Gautam Cope MD [address] [facility] [address] [place] [address] Medical Oncologist/Electrotyper Apprentice Medical Oncology 08/18/18 Tramaine Roe MD [address] [facility] [address] [place] [address] Referring Physician Urology 08/18/18 Sukhwinder Uribe MD [address] [facility] [address] [place] [address] Consulting Physician Urology 08/18/18 Shay Guillermo MD [address] [facility] [address] [place] [address] Referring Physician Urology 08/18/18 Marsha Landis RN Registered Nurse 11/17/18 Ilene Fragoso, RN [address] [place] [address] [address] [place] [address] Multiple Drill Operator 12/23/18 11/01/19 documented as of this encounter
--- OUTSIDE RECORDS SUMMARY | 2024-03-31 05:00 | XMS_ITS | Encounter Summary ---
Author Organization [facility] Address [address] [place] [address] Phone Care Team Providers Care Inspector And Clerk Name Role Phone Kraig Ching MD Primary Care Provider [phone] Gautam Cope MD Unavailable Tramaine Roe MD Unavailable [phone] Sukhwinder Uribe MD Unavailable [phone] Shay Guillermo MD Unavailable [phone] Marsha Landis RN Unavailable Unavailab Ilene Kaur RN Unavailable [phone] Encounter Details Date Type Department Care Team (Latest Contact Info) Description 09/06/2019 8:30 AM CDT Telemedicine [facility] Nephrology [facility] 5th [place] [address] [place] [address] CRD (chronic renal disease), stage III (CMS/HCC) (Primary Dx); Essential hypertension; Secondary hyperparathyroidism of renal origin (CMS/HCC) Social [...] on file 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 Gender Identity Not on file Sexual Orientation Not on file documented as of this encounter Ordered Prescriptions Prescription Sig Dispense Quantity Refills Last Filled Start Date End Date chlorthalidone 25 mg tablet Take 1 tablet (25 mg total) by mouth daily 30 tablet 11 09/15/2019 09/18/2020 chlorthalidone 25 mg tablet Take 1/2 tablet daily (12.5 mg) 15 tablet 11 09/06/2019 09/15/2019 documented in this encounter Progress Notes * Nichole Morales MD - 09/06/2019 8:30 AM CDT NEPHROLOGY SUBSEQUENT OFFICE VISIT NOTE NAME: DAVID DREW DATE OF : 1940 DATE OF VISIT: 09/06/2019 MEDICAL PROBLEM LIST: 1. CKD stage 3 likely secondary to diabetes mellitus and hypertension 2. COPD 3. Paroxysmal atrial fibrillation, Xarelto on hold 4. Type II diabetes mellitus, not on insulin, last A1C 7.3 in 08/2017 5. Essential Hypertension 6. Dyslipidemia 7. Pancreatitis in 1999 8. Duodenal Ulcer, EGD 10/2017 9. Prostate Cancer in 1999, [id number], status post radical prostatectomy with subsequent external beam radiation therapy. Now with rising PSA and newly discovered spinal metastasis, meeting with oncology on 09/06/2018 REASON FOR OFFICE VISIT: Follow up for CKD INTERVAL HISTORY: Mr. David Drew is a 78 year-old gentleman who returns for follow up of his CKD stage III. He was last seen in the renal clinic on 03/01/2019 and at that time, his Cr was slightly worse than baseline as a result of very poorly controlled diabetes mellitus and hypertension. In the interim, he has followed closely with Oncology for management of metastatic prostate cancer.He was started on hormonal therapy in October of 2018 and remains on Lupron, abiraterone and prednisone. He appears to have a good response to treatment per documentation from Oncology. Today, he reports back pain which is chronic. He states that he has been working hard to watch his diet and lose weight and is aware of his uncontrolled blood glucose. He still reports a few elevatedBP readings but believes BP is better controlled overall. His BP ranges from 140 to 150 systolics and is better during the day. He denies any chest pain, SOB, nausea, vomiting, fever, chills, lower extremity swelling. No sick contacts or travel history. REVIEW OF SYSTEMS: All other systems are negative. MEDICATIONS: Medication Sig ??? abiraterone (ZYTIGA) 250 mg tablet Take 4 tablets (1,000 mg total) by mouth daily Do not eat anything for at least 2 hours before and for at least 1 hour after ??? albuterol HFA (Ventolin HFA) 90 mcg/actuation inhaler Inhale 2 puffs every 4 (four) hours as needed for wheezing or shortness of breath ??? amLODIPine (NORVASC) 5 mg tablet TAKE 1 TABLET(5 MG) BY MOUTH EVERY MORNING ??? aspirin 81 mg tablet Take 1 tablet (81 mg total) by mouth daily. ??? Basaglar KwikPen U-100 Insulin 100 unit/mL (3 mL) insulin pen INJECT 10 UNITS UNDER THE SKIN DAILY UTD. ??? Basaglar KwikPen U-100 Insulin 100 unit/mL (3 mL) insulin pen INJECT 10 UNITS UNDER THE SKIN DAILY DIRECTED ??? chlorthalidone 25 mg tablet Take 1/2 tablet daily (12.5 mg) ??? diltiaZEM (CARDIZEM) 120 mg tablet TAKE 1 TABLET BY MOUTH DAILY ??? gabapentin (NEURONTIN) 100 mg capsule TAKE 2 CAPSULES(200 MG) BY MOUTH EVERY NIGHT ??? JANUVIA 25 mg tablet TAKE 1 TABLET BY MOUTH DAILY ??? lisinopriL (PRINIVIL,ZESTRIL) 20 mg tablet TAKE 1 TABLET(20 MG) BY MOUTH DAILY ??? metFORMIN (GLUCOPHAGE) 500 mg tablet TAKE 1 TABLET(500 MG) BY MOUTH TWICE DAILY WITH MEALS ??? pantoprazole DR (PROTONIX) 40 mg EC tablet TAKE 1 TABLET(40 MG) BY MOUTH DAILY ??? pravastatin (PRAVACHOL) 20 mg tablet TAKE 1 TABLET(20 MG) BY MOUTH DAILY ??? predniSONE (DELTASONE) 5 mg tablet Take 1 tablet (5 mg) by mouth 2 (two) times a day ??? TRAVATAN Z 0.004 % drops INT 1 DROP INTO OU QHS PHYSICAL EXAM No physical examination was performed as this was a real time audio/video encounter. LABORATORY DATA Sodium Date Value Ref Range Status 08/22/2019 139 135 - 145 mmol/L Final Comment: Testing performed by: [facility], [address] [place] [phone] 05/30/2019 137 135 - 145 mmol/L Final 05/22/2019 140 135 - 145 mmol/L Final Potassium, pl Date Value Ref Range Status 08/22/2019 4.7 3.3 - 4.9 mmol/L Final Comment: Testing performed by: [facility], [address] [place] [phone] 05/30/2019 4.6 3.3 - 4.9 mmol/L Final 05/22/2019 4.2 3.3 - 4.9 mmol/L Final CO2 Date Value Ref Range Status 08/22/2019 30 22 - 32 mmol/L Final Comment: Testing performed by: [facility], [address] [place] [phone] 05/30/2019 29 22 - 32 mmol/L Final 05/22/2019 29 22 - 32 mmol/L Final BUN Date Value Ref Range Status 08/22/2019 38 (H) 8 - 25 mg/dL Final Comment: Testing performed by: [facility], [address] [place] [phone] 05/30/2019 29 (H) 8 - 25 mg/dL Final 05/22/2019 32 (H) 8 - 25 mg/dL Final Creatinine Date Value Ref Range Status 08/22/2019 1.81 (H) 0.80 - 1.30 mg/dL Final Comment: Testing performed by: [facility], [address] [place] [phone] 05/30/2019 1.48 (H) 0.80 - 1.30 mg/dL Final 05/22/2019 1.58 (H) 0.80 - 1.30 mg/dL Final Albumin Date Value Ref Range Status 08/22/2019 4.2 3.5 - 5.0 g/dL Final Comment: Testing performed by: [facility], [address] [place] [phone] 05/30/2019 4.1 3.5 - 5.0 g/dL Final 03/07/2019 4.1 3.5 - 5.0 g/dL Final Calcium Date Value Ref Range Status 08/22/2019 9.3 8.5 - 10.3 mg/dL Final Comment: Testing performed by: [facility], [address] [place] [phone] 05/30/2019 9.9 8.5 - 10.3 mg/dL Final 05/22/2019 9.6 8.5 - 10.3 mg/dL Final Phosphorus, pl Date Value Ref Range Status 02/17/2019 3.1 2.3 - 4.5 mg/dL Final 08/15/2018 3.3 2.3 - 4.5 mg/dL Final 03/07/2018 3.1 2.3 - 4.5 mg/dL Final PTH Date Value Ref Range Status 11/22/2017 32 15 - 65 pg/mL Final Vitamin D, 25-hydroxy Date Value Ref Range Status 08/22/2019 29 (L) 30 - 80 ng/mL Final Hgb Date Value Ref Range Status 08/22/2019 12.3 (L) 13.8 - 17.2 g/dL Final Comment: Testing performed by: [facility], [address] [place] [phone] 05/30/2019 12.1 (L) 13.8 - 17.2 g/dL Final Comment: Testing performed by: [facility], [address] [place] [phone] 03/07/2019 12.1 (L) 13.8 - 17.2 g/dL Final Comment: Testing performed by: [facility], [address] [place] [phone] ASSESSMENT AND PLAN: 1. Chronic kidney disease, stage 3: The etiology of his CKD is likely uncontrolled HTN and diabetesmellitus. Renal function has worsened slightly since the last visit and this likely secondary to uncontrolled diabetes and hypertension. Today, we discussed the importance of improved glycemic and BP control. 2. Hypertension: His BP is not at goal. He reports that he ran out of chlorthalidone about 10 days ago. He is also taking both amlodipine and diltiazem. I asked him to discontinue amlodipine and continue diltiazem in the setting of atrial fibrillation. We will increase chlorthalidone 25 mg daily. At this time, we will continue lisinopril at the same dose without increase given recent hyperkalemia. We have instructed him to continue monitoring his BP at home and call us with BP readings in the next week or two. 3. Secondary hyperparathyroidism: We will check an iPTH prior to next visit. He can take OTC vitamin D for mild vitamin D deficiency. 4. Hyperkalemia: This has resolved. He is tolerating lisinopril well. DISPOSITION: The patient will return follow up in 3 months with labs. Nichole Morales MD Nephrology fellow [facility] Nephrology Cosigned by Lin Guerrero MD at 09/15/2019 2:24 PM CDT Associated attestation - Lin Guerrero MD - 09/15/2019 2:24 PM CDT This was a telemedicine visit with David Drew alone which took place via Telephone.During the visit, I was located at my academic office at [facility] and the patient was located home in the [facility]. I was present for the entire service with the resident and patient/caregiver.I agree with the findings and plan of care as documented in the resident's note. My visit with the patient started at 8:35 AM and ended at 9:08 AM. Total encounter time was 35 minutes, which includestime spent today on pre charting, the patient encounter, and post charting. The patient has been informed that the visit may not be secure and acknowledged the information. The option of participating in a telephone or video visit during the COVID-19 public health emergency was explained to the patient by the Resident/Fellow. After being given an opportunity to ask questions about and discuss this type of visit, the patient verbally consented to proceeding with the telephone/video visit. The patient understands that this service replaces an office visit and they maybe billed and/or responsible for any applicable copayments. Lin Guerrero MD documented in this encounter [...] to monitor diabetes and kidney status, etc. [facility] Chronic Pain Care Plan Chronic Care Management No change(03/23 1:47 PM POLICY DIRECTOR) No Ingrid Oden, SHEA Note: Problem: Chronic Pain Goals: 1. Minimize further functional decline 2. Maximize quality of life 3. Control pain Strategies: - Activity/exercise program recommendation - Conservative stepwise pain medicine strategy with multi-disciplinary approach - Recommend healthy lifestyle strategies and compensatory methods as needed documented as of this encounter Visit Diagnoses Diagnosis CRD (chronic renal disease), stage III (HCC)- Primary Chronic kidney disease, Stage III (moderate) Essential hypertension Unspecified essential hypertension Secondary hyperparathyroidism of renal origin (HCC) Secondary hyperparathyroidism (of renal origin) documented in this encounter Discontinued Medications Medication Sig Discontinue Reason Start Date End Da te chlorthalidone 25 mg tablet Take 1/2 tablet daily (12.5 mg) Reorder 08/24/2018 09/06/2019 chlorthalidone 25 mg tablet Take 1/2 tablet daily (12.5 mg) Reorder 09/06/2019 09/15/2019 amLODIPine (NORVASC) 5 mg tablet TAKE 1 TABLET(5 MG) BY MOUTH EVERY MORNING 09/07/2019 09/15/2019 documented as of this encounter Care Teams Inspector And Clerk Relationship Specialty Start Date End Date Kraig Ching MD [address] [facility] [address] [place] [address] PCP - General 07/10/16 Gautam Cope MD [address] [facility] [address] [place] [address] Medical Oncologist/Movie Operator Medical Oncology 08/18/18 Tramaine Roe MD [address] [facility] [address] [place] [address] Referring Physician Urology 08/18/18 Sukhwinder Uribe MD [address] [facility] [address] [place] [address] Consulting Physician Urology 08/18/18 Shay Guillermo MD [address] [facility] [address] [place] [address] Referring Physician Urology 08/18/18 Marsha Landis, RN Registered Nurse 11/17/18 Ilene Fragoso, RN [address] [facility] [address] [place] [address] Client Service Representative 12/23/18 11/01/19 documented as of this encounter
--- OUTSIDE RECORDS SUMMARY | 2024-03-31 05:00 | XMS_ITS | Encounter Summary ---
Author Organization [facility] Address [address] [place] [address] Phone Care Team Providers Care Seafood Manager Name Role Phone Kraig Ching MD Primary Care Provider [phone] Gautam Cope MD Unavailable Tramaine Roe MD Unavailable [phone] Sukhwinder Uribe MD Unavailable [phone] Shay Guillermo MD Unavailable [phone] Marsha Landis RN Unavailable Unavailab Ilene Kaur RN Unavailable [phone] Reason for Visit * Episode Based Medications (Routine) - Authorized Specialty Diagnoses / Procedures Referred By Contac t Referred To Contact Oncology Diagnoses Prostate cancer (HCC) Procedures RI LEUPROLIDE ACETATE SUSPNSION Leuprolide Every 3 Months - Prostate Gautam Cope MD [address] [facility] [address] [place] [address] Phone: tel: fax: [facility] [address] [facility] [address] [place] [address] Referral ID Status Reason Start Date Expiration Date V isits Requested Visits Authorized [id number] Authorized 09/06/2018 07/11/2024 1 50 Encounter Details Date Type Department Care Team (Late st Contact Info) Description 08/22/2019 11:15 AM CDT Office Visit [facility] Oncology [address] [facility] 7th [place] [address] [place] [address] Gautam Cope MD [address] [facility] [address] [place] [address] Prostate cancer (CMS/HCC) Social History Tobacco Use [...] file 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 Gender Identity Not on file Sexual Orientation Not on file documented as of this encounter Last Filed Vital Signs Vital Sign Reading Time Taken Comments Blood Pressure 152/67 08/22/2019 10:31 AM CDT Pulse 75 08/22/2019 10:31 AM CDT Temperature 36.8 ??C (98.3 ??F) 08/22/2019 1 0:31 AM CDT Respiratory Rate 18 08/22/2019 10:2 9 AM CDT Oxygen Saturation 97% 08/22/2019 10: 31 AM CDT Inhaled Oxygen Concentration - - Weight 100.3 kg (221 lb 3.2 oz) 020 10:29 AM CDT Height - - Body Mass Index 31.29 05/22/2019 11:51 AM SALES ACCOUNT REPRESENTATIVE documented in this encounter Progress Notes * Gautam Cope MD - 08/22/2019 12:00 AM CDT PATIENT NAME: DAVID DREW : 1940 [place]: 08/22/2019 Mr. Drew is a 78-year-old with metastatic prostate cancer. His diagnosis originally dates backto April 1999. At that time, he had a PSA of 5.5, and a biopsy was performed showing [place] 3+4 disease. In June. He underwent a radical prostatectomy performed by Dr. Guillermo, showing [place] 4+3 disease, with extracapsular extension and a positive margin, but negative lymph nodes. He did receive adjuvant radiation therapy, completing in November 1999. Thirteen years later, in June 2012, hisPSA was noted to be detectable and rising. By July 2018, it was up to the double digits, and an MRI scan in August 2018 showed evidence of local recurrence disease, and a bone scan showed involvement at L2. We met the patient in August 2018, and he was begun on Casodex, followed by Lupron, with abiraterone added in October 2018. He continues with his hot flashes. He continues with nocturia. Comorbiditiesincludes diabetes, and he is currently on insulin. His weight continues to be an issue also. We discussed that diabetes and obesity probably play a role in contributing his hot flashes, and certainly his nocturia and frequency. He admits to being fairly inactive. Comorbidities include chronic kidney disease, hypertension, paroxysmal atrial fibrillation, hyperlipidemia, tobacco abuse (although he is now down to half a pack/day) and diabetes. All other review of systems are negative. He denies any bone pain or complaints. PHYSICAL EXAMINATION: Vital Signs: Shows a male whose weight is 100.3 kg, with a BMI of 31.29. His blood pressure is 152/67, pulse 75. He is afebrile. His O2 saturation 97%. Performance Status: His performance status is 80%. Nodes: He has no palpable cervical adenopathy. Lungs: Clear to auscultation and percussion. Cardiac: Shows an S1 and S2. No S3, with an early systolic and early diastolic murmur. He has knownmitral regurgitation. Abdomen: His abdominal exam shows no hepatosplenomegaly or palpable masses, with normal bowel sounds. Extremities: Trace edema. Neurological: Nonfocal. LABORATORY DATA: His labs today show a hemoglobin of 12.3, normal white count and platelet count. His creatinine is 1.81. His albumin is 4.2. A random nonfasting glucose was 229. PSA from today is pending; his PSA athis last visit was less than 0.10. His A1c today was 11.0. IMAGING DATA: He had updating imaging done. His CT scan, he wished it to be done without contrast because of his elevated creatinine, and with this, there was very little seen. He does have a penile prosthesis, but there is very little evidence of local recurrence at this time, suggesting improvement in his scan, although some of this may be that it was done without contrast. There is still a sclerotic lesion at L2. On his bone scan, the only lesion seen is at L2. He has some uptake in his cervical spine, shoulders, sternoclavicular joints, elbows, knees, and ankles, consistent with degenerative joint disease. We went over these results carefully with the patient. ASSESSMENT AND PLAN: 1. Metastatic prostate cancer. He was diagnosed with cancer in 1999, treated with a radical prostatectomy, followed immediately by adjuvant radiation therapy. With this finding and development of metastatic disease, we started him on hormonal therapy in October 2018. He remains on Lupron, abiraterone,and prednisone. His dose of prednisone is 10 mg, which is only a little bit above physiological doses. His scan show a nice control of his disease, and he has had a good serological response. We are planning to see him again 3 months from now. We attempted to get a bone density done prior to today's visit, but because of the COVID virus, these are not being done, and hopefully, we will try and get that done in 6 months. 2. Diabetes. We discussed that his A1c is 11, and he probably needs to pay more attention to this, as it is probably contributing to his symptoms. 3. Pain with injections. He requested stronger pain medicine for his injections. We informed him that he could certainly use Tylenol, but he thought that would interfere with his kidney function. We explained Tylenol is quite safe to the kidneys and so could certainly be used to help with any pain that he develops. We discussed that we could switch to a different injection, which goes into the abdomen if this continues to be a problem. Most of our patients prefer the buttock injections over theabdominal injection. We will see the patient again 12 weeks from now. Further follow-up for his diabetes will be with his primary care physician. ELECTRONICALLY SIGNED - 08/22/2019 05:10 PM Gautam Cope M.D. environmental protection economist GLORIA/lul documented in this encounter Plan of Treatment Not on file documented as of this encounter Goals Goal Patient Goal Type Associated Problems Recent Progress Patient-Stated? Author ZAK General Goal - Patient is knowledgeable about condition when worsening and how to respond ACO Care Management No change(09/06 4:37 PM CDT) Ilene Yadav, HSEA Note: Problem: Knowledge deficit related to signs [...] Care Management No change(03/23 1:47 PM SALES ACCOUNT REPRESENTATIVE) Ingrid Mcdaniels, SHEA Note: Problem: Chronic Pain [...] Date ONCBCN CLINIC APPOINTMENT REQUEST 1 020 documented in this encounter Care Teams Seafood Manager Relationship Specialty Start Date End Date Kraig Ching MD [address] [place] [address] PCP - General 07/10/16 Gautam Cope MD [address] [place] [address] Medical Oncologist/Wireless Communications Engineer Medical Oncology 08/18/18 Tramaine Roe MD [address] [place] [address] Referring Physician Urology 08/18/18 Sukhwinder Uribe MD [address] [place] [address] Consulting Physician Urology 08/18/18 Shay Guillermo MD [address] [place] [address] Referring Physician Urology 08/18/18 Marsha Landis, RN Registered Nurse 11/17/18 Ilene Fragoso, SHEA [address] [place], [place] [id number] Timber Faller 12/23/18 11/01/19 documented as of this encounter
--- OUTSIDE RECORDS SUMMARY | 2024-03-31 05:00 | XMS_ITS | Encounter Summary ---
Author Organization [facility] Care Team Providers Care Tableman Name Role Phone Kraig Ching MD Primary Care Provider [phone] Gautam Cope MD Unavailable Tramaine Roe MD Unavailable [phone] Sukhwinder Uribe MD Unavailable [phone] Shay Guillermo MD Unavailable [phone] Marsha Landis RN Unavailable Unavailab Ilene Kaur RN Unavailable [phone] Encounter Details Date Type Department Care Team (Latest Contact Info) Description 05/22/2019 Travel Social History Tobacco Use Types Packs/Day Years [...] on file Legal Sex Male 4:46 PM GRADUATE INTERNSHIP Gender Identity Not on file Sexual Orientation [...] to monitor diabetes and kidney status, etc. [facility] Chronic Pain Care Plan Chronic Care Management No change(03/23 1:47 PM GRADUATE INTERNSHIP) No Ingrid Oden, SHEA Note: Problem: Chronic Pain Goals: 1. Minimize further functional decline 2. Maximize quality of life 3. Control pain Strategies: - Activity/exercise program recommendation - Conservative stepwise pain medicine strategy with multi-disciplinary approach - Recommend healthy lifestyle strategies and compensatory methods as needed documented as of this encounter Visit Diagnoses Not on filedocumented in this encounter Care Teams Tableman Relationship Specialty Start Date End Date Kraig Ching MD [address] [place] [address] PCP - General 07/10/16 Gautam Cope MD [address] [place] [address] Medical Oncologist/Hog Worker Medical Oncology 08/18/18 Tramaine Roe MD [address] [place] [address] Referring Physician Urology 08/18/18 Sukhwinder Uribe MD [address] [place] [address] Consulting Physician Urology 08/18/18 Shay Guillermo MD [address] [place] [address] Referring Physician Urology 08/18/18 Marsha Landis, RN Registered Nurse 11/17/18 Ilene Fragoso, RN [address] [facility] [address] [place] [address] Labor Relations Director 12/23/18 11/01/19 documented as of this encounter
--- OUTSIDE RECORDS SUMMARY | 2024-03-31 05:00 | XMS_ITS | Encounter Summary ---
Author Organization [facility] Address [address] [place] [address] Phone Care Team Providers Care Solvent Station Attendant Name Role Phone Kraig Ching MD Primary Care Provider [phone] Gautam Cope MD Unavailable Tramaine Roe MD Unavailable [phone] Sukhwinder Uribe MD Unavailable [phone] Shay Guillermo MD Unavailable [phone] Marsha Landis RN Unavailable Unavailab Ilene Kaur RN Unavailable [phone] Reason for Visit * Episode Based Medications (Routine) - Authorized Specialty Diagnoses / Procedures Referred By Contac t Referred To Contact Oncology Diagnoses Prostate cancer (HCC) Procedures [place] LEUPROLIDE ACETATE SUSPNSION Leuprolide Every 3 Months - Prostate Gautam Cope MD [address] [facility] [address] [place] [address] Phone: tel: fax: [facility] - Infusion [address] [facility] Floor 5 [place] [address] Referral ID Status Reason Start Date Expiration Date V isits Requested Visits Authorized [id number] Authorized 09/06/2018 07/11/2024 1 50 Encounter Details Date Type Department Care Team (Late st Contact Info) Description 03/07/2019 11:00 AM VEGETABLE I FARMWORKER Infusion [facility] Oncology [address] [facility] Advanced Medicine 7th [place] [address] Prostate cancer (CMS/HCC) (Primary Dx) Social History [...] on file 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 Patient tolerated procedure well. Patient left clinic ambulatory. Ana Pathak RN TABLE I FARMWORKER documented in this encounter Plan of Treatment [...] monitor diabetes and kidney status, etc. [facility] Chronic Pain Care Plan Chronic Care Management No change(03/23 1:47 PM VEGETABLE I FARMWORKER) No Ingrid Oden, SHEA Note: Problem: Chronic [...] Date Dose Rate Site leuprolide (3 month) (LUPRON) injection 22.5 mg 22.5 mg, intramuscular, Once, On Wed03/07/19 at 1030, For 1 doseIndications:Prostate cancer (HCC) Given 03/07/2019 10:09 AM VEGETABLE I FARMWORKER 22.5 mg Right Dorsogluteal/Butto ck documented in this encounter Orders Nursing Count Last Ordered Date First Orde red Date ONCBCN TREATMENT PARAMETERS 2 1 03/07/2019 Appointment Requests Count Last Ordered Date Fi rst Ordered Date ONCBCN INJECTION APPOINTMENT REQUEST 1 02/11 documented in this encounter Care Teams Solvent Station Attendant Relationship Specialty Start Date End Date Kraig Ching MD [address] [facility] [address] [place] [address] PCP - General 07/10/16 Gautam Cope MD [address] [facility] [address] [place] [address] Medical Oncologist/Client Support Analyst Medical Oncology 08/18/18 Tramaine Roe MD [address] [facility] [address] [place] [address] Referring Physician Urology 08/18/18 Sukhwinder Uribe MD [id number] [place] [address] Consulting Physician Urology 08/18/18 Shay Guillermo MD [id number] [place] [address] Referring Physician Urology 08/18/18 Marsha Landis, RN Registered Nurse 11/17/18 Ileen Fragoso, RN [address] [facility] [address] [place] [address] City Clerk 12/23/18 11/01/19 documented as of this encounter
--- OUTSIDE RECORDS SUMMARY | 2024-03-31 05:00 | XMS_ITS | Encounter Summary ---
Author Organization [facility] Address [address] [place] [address] Phone Care Team Providers Care Clinical Aide Name Role Phone Kraig Ching MD Primary Care Provider [phone] Gautam Cope MD Unavailable Tramaine Roe MD Unavailable [phone] Sukhwinder Uribe MD Unavailable [phone] Shay Guillermo MD Unavailable [phone] Marsha Landis RN Unavailable Unavailab Ilene Kaur RN Unavailable [phone] Reason for Visit * Episode Based Medications (Routine) - Authorized Specialty Diagnoses / Procedures Referred By Contac t Referred To Contact Oncology Diagnoses Prostate cancer (HCC) Procedures [place] LEUPROLIDE ACETATE SUSPNSION Leuprolide Every 3 Months - Prostate Gautam Cope MD [address] [facility] [address] [place] [address] Phone: tel: fax: [facility] - Infusion [address] [facility] Floor 5 [place] [address] Referral ID Status Reason Start Date Expiration Date V isits Requested Visits Authorized [id number] Authorized 09/06/2018 07/11/2024 1 50 Encounter Details Date Type Department Care Team (Late st Contact Info) Description 05/30/2019 10:30 AM PRODUCTION ASSEMBLY OPERATOR Lab [facility] Oncology [address] [facility] 7th [place] [address] [place] [address] Prostate cancer ([facility]) Social History Tobacco Use Types Packs/Day Years [...] file Legal Sex Male 4:46 PM PRODUCTION ASSEMBLY OPERATOR Gender Identity Not on file Sexual [...] monitor diabetes and kidney status, etc. [facility] Chronic Pain Care Plan Chronic Care Management No change(03/23 1:47 PM PRODUCTION ASSEMBLY OPERATOR) No Ingrid Oden, SHEA Note: Problem: Chronic Pain Goals: 1. Minimize further functional decline 2. Maximize quality of life 3. Control pain Strategies: - Activity/exercise program recommendation - Conservative stepwise pain medicine strategy with multi-disciplinary approach - Recommend healthy lifestyle strategies and compensatory methods as needed documented as of this encounter Procedures Procedure Name Priority Date/Time Associated Diagnosis Comments PSA DIAGNOSTIC Routine 05/30/2019 10:55 AM PRODUCTION ASSEMBLY OPERATOR Prostate cancer ([facility]) LACTATE DEHYDROGENASE Routine 05/30/2019 10:55 AM PRODUCTION ASSEMBLY OPERATOR Prostate cancer ([facility]) HEMOGLOBIN A1C Routine 05/30/2019 10:55 AM PRODUCTION ASSEMBLY OPERATOR Prostate cancer ([facility]) COMPREHENSIVE METABOLIC PANEL Routine 05/30/2019 10:55 AM PRODUCTION ASSEMBLY OPERATOR Prostate cancer ([facility]) DIFFERENTIAL AUTO Routine 05/30/2019 10: 51 AM PRODUCTION ASSEMBLY OPERATOR Prostate cancer ([facility]) CBC WITH AUTO DIFFERENTIAL Routine 05/30/2019 10:51 AM PRODUCTION ASSEMBLY OPERATOR Prostate cancer ([facility]) documented in this encounter Results * (ABNORMAL) Hemoglobin A1c (05/30/2019 10:55 AM PRODUCTION ASSEMBLY OPERATOR) Hgb A1C 11.4(H) 4.0 - 5.6 % [facility] Estimated Average Glucose 280 mg/dL [facility] Comment: The ADA recommends reporting an estimated Average Glucose (eAG) with all Hemoglobin A1c results using the equation derived from a study of 507 normal and diabetic adults. ??Minority populations were underrepresented and children were not included. ?? (Diabetes Care 31:6640-0509, 2008). ??The eAG is not equivalent to a fasting glucose. Blood specimen (specimen) 05/30/2019 10:55 AM PRODUCTION ASSEMBLY OPERATOR 05/30/2019 11:03 AM PRODUCTION ASSEMBLY OPERATOR us Gautam Cope MD LAB BLOOD ORDERABLES Final Resul t Performing Organization Address City/[facility] Co de Phone Number [facility] [place] [address] * Lactate dehydrogenase (LD) (05/30/2019 10:55 AM PRODUCTION ASSEMBLY OPERATOR) Lactate dehydrogenase (LDH) 204 100 - 250 Units/L [facility] Blood specimen (specimen) 05/30/2019 10:55 AM PRODUCTION ASSEMBLY OPERATOR 05/30/2019 11:34 AM PRODUCTION ASSEMBLY OPERATOR us Gautam Cope MD LAB BLOOD ORDERABLES Final Resul t Performing Organization Address [facility] de Phone Number [facility] [place] [address] * (ABNORMAL) Comprehensive metabolic panel (05/30/2019 10:55 AM PRODUCTION ASSEMBLY OPERATOR) Sodium 137 135 - 145 mmol/L [facility] Potassium, pl 4.6 3.3 - 4.9 mmol/L [facility] Chloride 98 97 - 110 mmol/L [facility] CO2 29 22 - 32 mmol/L [facility] Anion gap 10 2 - 15 mmol/L [facility] BUN 29(H) 8 - 25 mg/dL [facility] Creatinine 1.48(H) 0.80 - 1.30 mg/dL [facility] Glucose 259(H) 70 - 199 mg/dL [facility] Comment: Interpretive Data Fasting glucose >/= [...] 2017. Calcium 9.9 8.5 - 10.3 mg/dL [facility] Bilirubin, total 0.4 0.1 - 1.2 mg/dL [facility] Protein, pl 7.1 6.5 - 8.5 g/dL [facility] Albumin 4.1 3.5 - 5.0 g/dL [facility] Alk phos 104 40 - 130 Units/L [facility] ALT 19 7 - 55 Units/L [facility] AST 18 10 - 50 Units/L [facility] Blood specimen (specimen) 05/30/2019 10:55 AM PRODUCTION ASSEMBLY OPERATOR 05/30/2019 11:34 AM PRODUCTION ASSEMBLY OPERATOR us Gautam Cope MD LAB BLOOD ORDERABLES Final Resul t [facility] Department [place] [address] * PSA diagnostic (05/30/2019 10:55 AM PRODUCTION ASSEMBLY OPERATOR) PSA-Total <0.10 <=6.20 ng/mL [facility] Comment: Interpretive Data ?AGE ? SEX ?REFERENCE INTERVAL 0 minutes-150 years ?Female ?None 0 minutes-49 years ? Male ?None ? 50-59 years ? Male ?0-3.90 ? 60-69 years ? Male ?0-5.40 ? 70-79 years ? Male ?0-6.20 ? 80-150 years ?Male ?0-6.20 Current interpretive data last revised 2017. Blood specimen (specimen) 05/30/2019 10:55 AM PRODUCTION ASSEMBLY OPERATOR 05/30/2019 11:34 AM PRODUCTION ASSEMBLY OPERATOR us Gautam Cope MD LAB BLOOD ORDERABLES Final Resul t [facility] [address] [facility] Department [place] [address] * (ABNORMAL) Differential, auto (05/30/2019 10:51 AM PRODUCTION ASSEMBLY OPERATOR) Neutrophil abs 8.2(H) 1.8 - 6.6 K/cumm [facility] Comment:Testing performed by : [facility], [address] [place] [phone] Lymphocyte abs 1.3 1.2 - 3.3 K/cumm [facility] Comment:Testing performed by : [facility], [address] [place] [phone] Monocyte abs 0.8 0.2 - 1.2 K/cumm [facility] Comment:Testing performed by : [facility], [address] [place] [phone] Eosinophil abs 0.1 0.0 - 0.5 K/cumm [facility] Comment:Testing performed by : [facility], [address] [place] [phone] Basophil abs 0.0 0.0 - 0.2 K/cumm [facility] Comment:Testing performed by : [facility], [address] [place] [phone] Neutrophil pct 78.7 % [facility] Comment: Interpretive Data Percent cell count reference ranges are not reported, since discordance with absolute values may lead to misinterpretation of CBC data. Current Interpretive Data was last revised on 2017. Testing performed by: [facility], [address] [place] [phone] Lymphocyte pct 12.7 % [facility] Comment: Interpretive Data Percent cell count reference ranges are not reported, since discordance with absolute values may lead to misinterpretation of CBC data. Current Interpretive Data was last revised on 2017. Testing performed by: [facility], [address] [place] [phone] Monocyte pct 7.2 % [facility] Comment:Testing performed by : [facility], [address] [place] [phone] Eosinophil pct 1.1 % [facility] Comment:Testing performed by : [facility], [address] [place] [phone] Basophil pct 0.3 % [facility] Comment:Testing performed by : [facility], [address] [place] [phone] Blood specimen (specimen) 05/30/2019 10:51 AM PRODUCTION ASSEMBLY OPERATOR 05/30/2019 10:55 AM PRODUCTION ASSEMBLY OPERATOR us Gautam Cope MD LAB BLOOD ORDERABLES Final Resul t [facility] [address] [facility] [place] [address] * (ABNORMAL) CBC with auto differential (05/30/2019 10:51 AM PRODUCTION ASSEMBLY OPERATOR) WBC 10.5(H) 3.8 - 9.8 K/cumm [facility] Comment:Testing performed by : [facility], [address] [place] [phone] Hgb 12.1(L) 13.8 - 17.2 g/dL [facility] Comment:Testing performed by : [facility], [address] [place] [phone] Hct 36.3(L) 40.7 - 50.3 % [facility] Comment:Testing performed by : [facility], [address] [place] [phone] Plt 381 140 - 440 K/cumm [facility] Comment:Testing performed by : [facility], [address] [place] [phone] MPV 7.7 6.8 - 10.4 fL [facility] Comment:Testing performed by : [facility], [address] [place], [place] [phone] RBC 4.01(L) 4.50 - 5.70 M/cumm [facility] Comment:Testing performed by : [facility], [address] [place], [place] [phone] MCV 90.6 80.0 - 97.6 fL [facility] Comment:Testing performed by : [facility], [address] [place] [phone] MCH 30.2 26.7 - 33.7 pg [facility] Comment:Testing performed by : [facility], [address] [place], [place] [phone] MCHC 33.4 32.7 - 35.5 g/dL [facility] Comment:Testing performed by : [facility], [address] [place] [phone] RDW CV 13.5 11.8 - 14.6 % [facility] Comment:Testing performed by : [facility], [address] [place] [phone] NRBC abs 0.00 0.00 - 0.01 K/cumm [facility] Comment:Testing performed by : [facility], [address] [place] [phone] Blood specimen (specimen) 05/30/2019 10:51 AM PRODUCTION ASSEMBLY OPERATOR 05/30/2019 10:55 AM PRODUCTION ASSEMBLY OPERATOR us Gautam Cope MD LAB BLOOD ORDERABLES Final Resul t [facility] [address] [facility] Department [place] [address] documented in this encounter Visit Diagnoses Diagnosis Prostate cancer (HCC) Malignant neoplasm of prostate documented in this encounter Orders Appointment Requests Count Last Ordered Date Fi rst Ordered Date ONCBCN LAB APPOINTMENT 1 05/30/2019 documented in this encounter Care Teams Clinical Aide Relationship Specialty Start Date End Date Kraig Ching MD [address] [place] [address] [address] [place] [address] PCP - General 07/10/16 Gautam Cope MD [address] [facility] [address] [place] [address] Medical Oncologist/Customer Service Representative Teacher Medical Oncology 08/18/18 Tramaine Roe MD [address] [facility] [address] [place] [address] Referring Physician Urology 08/18/18 Sukhwinder Uribe MD [address] [facility] [address] [place] [address] Consulting Physician Urology 08/18/18 Shay Guillermo MD [address] [facility] [address] [place] [address] Referring Physician Urology 08/18/18 Marsha Landis, RN Registered Nurse 11/17/18 Ilene Fragoso, SHEA [address] [facility] [address] [place] [address] Tuckpointer Cleaner Caulker 12/23/18 11/01/19 documented as of this encounter
--- OUTSIDE RECORDS SUMMARY | 2024-03-31 05:00 | XMS_ITS | Encounter Summary ---
Author Organization [facility] Address [address] [place] [address] Phone Care Team Providers Care Aluminum Molding Machine Operator Name Role Phone Kraig Ching MD Primary Care Provider [phone] Gautam Cope MD Unavailable Tramaine Roe MD Unavailable [phone] Sukhwinder Uribe MD Unavailable Shay Guillermo MD Unavailable [phone] Marsha Landis RN Unavailable Unavailab Ilene Kaur RN Unavailable [phone] Reason for Referral * MRI/CAT/PET Scan (Routine) - Closed Specialty Diagnoses / Procedures Referred By Contac t Referred To Contact Radiology Diagnoses Prostate cancer (HCC) Procedures CT chest abdomen pelvis without contrast Gautam Cope MD [address] [facility] [address] [place] [address] Phone: tel: fax: [facility] 1 [place] [address] Referral ID Status Reason Start Date Expiration Date Visits Re quested Visits Authorized [id number] Closed 08/09/2019 02/17/2021 1 1 Encounter Details Date Type Department Care Team (Late st Contact Info) Description 08/09/2019 Telephone [facility] Oncology [address] [facility] 7th Floor [address] [place] [phone] Comfort Foreman, AUTO FLEET MANAGER [address] [place] [address] Social History Tobacco Use Types Packs/Day Years [...] on file 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 eWi called to confirm that his upcoming scan is without contrast. I entered a new order and spoke with radiology scheduling and we have corrected this order. I returned a phone call to Mr. Wei to relay the information above. He verified understanding and denied additional concerns at this time. documented in this encounter Plan of Treatment [...] to monitor diabetes and kidney status, etc. [facility] Chronic Pain Care Plan Chronic Care Management No change(03/23 1:47 PM TRIMMER LOADER) No Ingrid Oden, RN Note: Problem: Chronic Pain Goals: 1. Minimize further functional decline 2. Maximize quality of life 3. Control pain Strategies: - Activity/exercise program recommendation - Conservative stepwise pain medicine strategy with multi-disciplinary approach - Recommend healthy lifestyle strategies and compensatory methods as needed documented as of this encounter Results * CT chest abdomen pelvis without contrast (08/15/2019 10:04 AM CDT) Anatomical Region Laterality Modality Body N/A Computed Tomogra phy 08/15/2019 10:2 9 AM CDT Impressions 08/15/2019 10:29 AM CDT 1. ??Stable sclerotic lesion within L2. 2. ??Otherwise no evidence of metastatic disease to the chest and pelvis. Electronically signed by: Shay Wood M.D. Narrative 08/15/2019 10:29 AM CDT EXAMINATION: ??Computed tomography of the chest, abdomen and pelvis without intravenous contrast HISTORY: Metastatic prostate cancer TECHNIQUE: ??Transaxial computed tomographic images of the chest, abdomen and pelvis were obtained without intravenous contrast according to the standard protocol. COMPARISON: Computed tomography examination of the chest abdomen and pelvis 09/13/2018 FINDINGS: ?? Chest: There are no confluent pulmonary infiltrates. ??There are no pleural effusions. ??There are no suspicious pulmonary nodules. ??The heart size is normal. ??Atherosclerotic calcifications present within the aorta and coronary arteries. ??There is no axillary nor mediastinal lymphadenopathy. Abdomen/Pelvis: The liver, pancreas, spleen, both adrenal glands appear normal. Stable renal cysts noted. ??There is no renal stone. ??There is no hydronephrosis there has been improvement in perinephric stranding. The bowel gas pattern is normal. ??Colonic diverticulosis present. The appendix is normal. ??The urinary bladder appears normal. ??The prostate is surgically absent. Penile prosthesis present. ??No free pelvic fluid. ??There is no abdominal nor pelvic lymphadenopathy. Images obtained with bone window settings demonstrate multilevel degenerative changes throughout the spine. ??A sclerotic lesion again noted within vertebral body L2. ??Grade 1 anterior spondylolisthesis of L4 on L5 again noted. Procedure Note Shay Wood MD - 08/15/2019 EXAMINATION: Computed tomography of the chest, abdomen and pelvis without intravenous contrast HISTORY: Metastatic prostate cancer TECHNIQUE: Transaxial computed tomographic images of the chest, abdomen and pelvis were obtained without intravenous contrast according to the standard protocol. COMPARISON: Computed tomography examination of the chest abdomen and pelvis 09/13/2018 FINDINGS: Chest: There are no confluent pulmonary infiltrates. There are no pleural effusions. There are no suspicious pulmonary nodules. The heart size is normal. Atherosclerotic calcifications present within the aorta and coronary arteries. There is no axillary nor mediastinal lymphadenopathy. Abdomen/Pelvis: The liver, pancreas, spleen, both adrenal glands appear normal. Stable renal cysts noted. There is no renal stone. There is no hydronephrosis there has been improvement in perinephric stranding. The bowel gas pattern is normal. Colonic diverticulosis present. The appendix is normal. The urinary bladder appears normal. The prostate is surgically absent. Penile prosthesis present. No free pelvic fluid. There is no abdominal nor pelvic lymphadenopathy. Images obtained with bone window settings demonstrate multilevel degenerative changes throughout the spine. A sclerotic lesion again noted within vertebral body L2. Grade 1 anterior spondylolisthesis of L4 on L5 again noted. IMPRESSION: 1. Stable sclerotic lesion within L2. 2. Otherwise no evidence of metastatic disease to the chest and pelvis. Electronically signed by: Shay Wood M.D. Gautam Cope MD IMG CT PROCEDURES Final Result documented in this encounter Visit Diagnoses Diagnosis Prostate cancer (HCC)- Primary Malignant neoplasm of prostate Prostate cancer (HCC) Malignant neoplasm of prostate documented in this encounter Care Teams Aluminum Molding Machine Operator Relationship Specialty Start Date End Date Kraig Ching MD [address] [facility] [address] [place] [address] PCP - General 07/10/16 Gautam Cope MD [address] [facility] [address] [place] [address] Medical Oncologist/Loft Rigger Medical Oncology 08/18/18 [place] [address] [place] [address] [place] [address] Referring Physician Urology 08/18/18 [place] [address] [place] [address] [address] [place] [address] Consulting Physician Urology 08/18/18 [place] [address] [place] [address] [place] [address] Referring Physician Urology 08/18/18 Marsha Landis, RN Registered Nurse 11/17/18 Ilene Fragoso RN [address] [facility] [address] [place] [address] Fur Designer 12/23/18 11/01/19 documented as of this encounter
--- OUTSIDE RECORDS SUMMARY | 2024-03-31 05:00 | XMS_ITS | Encounter Summary ---
Author Organization [facility] Address [address] [place] [address] Phone Care Team Providers Care Professional Nursing Tutor Name Role Phone Kraig Ching MD Primary Care Provider [phone] Gautam Cope MD Unavailable Tramaine Roe MD Unavailable [phone] Sukhwinder Uribe MD Unavailable [phone] Shay Guillermo MD Unavailable [phone] Marsha Landis RN Unavailable Unavailab Ilene Kaur RN Unavailable [phone] Encounter Details Date Type Department Care Team (Late st Contact Info) Description 08/21/[address] 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 Estimated Average Glucose 269 mg/dL [facility] Comment: The ADA recommends reporting an estimated Average Glucose (eAG) with all Hemoglobin A1c results using the equation derived from a study of 507 normal and diabetic adults. ??Minority populations were underrepresented and children were not included. ?? (Diabetes Care 31:2278-1886, 2007). ??The eAG is not equivalent to a fasting glucose. Blood specimen (specimen) 08/22/2019 10:10 AM CDT 08/22/2019 10:13 AM CDT us Gautam Cope MD LAB BLOOD ORDERABLES Final Resul t [facility] [place] [address] * (ABNORMAL) Vitamin D 25 hydroxy (08/22/2019 10:08 AM CDT) Vitamin D 25-OH 29(L) 30 - 80 ng/mL [facility] Blood specimen (specimen) 08/22/2019 10:08 AM CDT 08/22/2019 10:31 AM CDT us Gautam Cope MD LAB BLOOD ORDERABLES Edited Resu lt - Final [facility] [place] [address] documented in this encounter Visit Diagnoses Diagnosis Prostate cancer (HCC)- Primary Malignant neoplasm of prostate documented in this encounter Care Teams Professional Nursing Tutor Relationship Specialty Start Date End Date Kraig Ching MD [address] [place] [address] PCP - General 07/10/16 Gautam Cope MD [address] [place] [address] Medical Oncologist/Gasoline Truck Crane Operator Medical Oncology 08/18/18 Tramaine Roe MD [address] [place] [address] Referring Physician Urology 08/18/18 Sukhwinder Uribe MD [address] [place] [address] Consulting Physician Urology 08/18/18 Shay Guillermo MD [address] [place] [address] Referring Physician Urology 08/18/18 Marsha Landis, RN Registered Nurse 11/17/18 Ilene Fragoso, RN [address] [facility] [address] [place] [address] Popcorn Vendor 12/23/18 11/01/19 documented as of this encounter
--- OUTSIDE RECORDS SUMMARY | 2024-03-31 05:00 | XMS_ITS | Encounter Summary ---
Author Organization [facility] Address [address] [facility] [address] [place] [address] Care Team Providers Care Sheriff'S Detective Name Role Phone Kraig Ching MD Primary Care Provider [phone] Gautam Cope MD Unavailable Tramaine Roe MD Unavailable [phone] Sukhwinder Uribe MD Unavailable [phone] Shay Guillermo MD Unavailable [phone] Marsha Landis RN Unavailable Unavailab Ilene Kaur RN Unavailable [phone] Reason for Visit * Reason Comments Chronic Condition Encounter Details Date Type Department Care Team (Late st Contact Info) Description 05/22/2019 11:45 AM BRICK SORTER Office Visit [facility] [address] [facility] [address] [place] [address] Katherine Del Rio PA [address] [facility] [address] [place], [place] [id number] Type 2 diabetes mellitus with stage 3 chronic kidney disease, without long-term current use of insulin (CMS/HCC) (Primary Dx); Essential hypertension; Chronic obstructive pulmonary disease, unspecified COPD type (CMS/HCC); PAF (paroxysmal atrial fibrillation) (CMS/HCC); Obesity (BMI 30-39.9); BMI 30.0-30.9,adult Social History [...] on file 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 Gender Identity Not on file Sexual Orientation Not on file documented as of this encounter Last Filed Vital Signs Vital Sign Reading Time Taken Comments Blood Pressure 116/68 05/22/2019 11:51 AM BRICK SORTER Pulse 71 05/22/2019 11:51 AM BRICK SORTER Temperature 36.7 ??C (98.1 ??F) 05/22/2019 11:[address] Respiratory Rate 18 05/22/2019 11:51 AM BRICK SORTER Oxygen Saturation 96% 05/22/2019 11:51 AM BRICK SORTER Inhaled Oxygen Concentration - - Weight 99.3 kg (219 lb) 05/22/2019 11:51 AM BRICK SORTER Height 179.1 cm (5' 10.5 ) 05/22/2019 11:[address] Body Mass Index 30.98 05/22/2019 11:51 AM BRICK SORTER documented in this encounter Ordered Prescriptions Prescription Sig Dispense Quantity Refills Last Filled Start Date End Date albuterol HFA (Ventolin HFA) 90 mcg/actuation inhalerIndications :Chronic obstructive pulmonary disease, unspecified COPD type (HCC) Inhale 2 puffs every 4 (four) hours as needed for wheezing or shortness of breath 8 g 5 05/22/2019 0 documented in this encounter Progress Notes * Katherine Del Rio PA - 05/22/2019 11:45 AM CST Subjective/Objective Patient ID: David Wei is a 78 y.o. male. Chief Complaint Chronic Condition He is here today for routine follow up. 1. T2DM. Last A1c = 10.1. He is prescribed lantus, januvia and metformin. Current with dilated eye exam. 2. PAF. He is prescribed diltiazem. He denies palpitations. 3. HTN. Complicated by diastolic dysfunction. Compliant with lisinopril, chlorthalidone and amlodipine. He reports a recent episode of LE swelling. He eats a lot of salty foods. Denies chest pain, SOB. 4. COPD. He reports a 2 week history of a cough and wheezing. He doesn't have an albuterol inhaler. Review of Systems Constitutional: Negative for fatigue and fever. HENT: Negative for congestion. Respiratory: Positive for cough and wheezing. Negative for shortness of breath. Cardiovascular: Positive for leg swelling. Negative for chest pain and palpitations. Gastrointestinal: Negative for abdominal pain, nausea and vomiting. Endocrine: Negative for polydipsia, polyphagia and polyuria. Neurological: Negative for dizziness and headaches. Psychiatric/Behavioral: Negative for sleep disturbance. BP 116/68 (BP Location: Right arm, Patient Position: Sitting) Pulse 71 Temp 36.7 ??C (98.1 ??F)(Oral) Resp 18 Ht 179.1 cm (5' 10.5 ) Wt 99.3 kg (219 lb) SpO2 96% BMI 30.98 kg/m?? Physical Exam Vitals signs reviewed. Constitutional: Appearance: He is well-developed. HENT: Head: Normocephalic and atraumatic. Mouth/Throat: Mouth: Mucous membranes are moist. Eyes: Pupils: Pupils are equal, round, and reactive to light. Neck: Musculoskeletal: Normal range of motion and neck supple. Cardiovascular: Rate and Rhythm: Normal rate and regular rhythm. Pulmonary: Effort: Pulmonary effort is normal. Breath sounds: Normal breath sounds. Lymphadenopathy: Cervical: No cervical adenopathy. Skin: General: Skin is warm and dry. Neurological: Mental Status: He is alert and oriented to person, place, and time. Cranial Nerves: No cranial nerve deficit. Assessment/Plan Diagnoses and all orders for this visit: Type 2 diabetes mellitus with stage 3 chronic kidney disease, without long-term current use of insulin ([facility]) (Primary) Comments: Uncontrolled. Lab today. Titrate lantus to 12 units. Low carb diet and regular exercise encouraged. Orders: - Albumin Creatinine Ratio, Urine; Future Essential hypertension Comments: BP at goal. Lab today. Continue current medications. Low sodium goals reviewed. Orders: - Basic metabolic panel (Outreach); Future Chronic obstructive pulmonary disease, unspecified COPD type ([facility]) Comments: O2 sat 96%. Lungs CTA. Albuterol prescribed. Orders: - albuterol HFA (Ventolin HFA) 90 mcg/actuation inhaler; Inhale 2 puffs every 4 (four) hours as needed for wheezing or shortness of breath PAF (paroxysmal atrial fibrillation) ([facility]) Comments: RRR today. Continue diltiazem. Obesity (BMI 30-39.9) BMI 30.0-30.9,adult [facility] Landry K SORTER documented in this encounter Plan of Treatment [...] monitor diabetes and kidney status, etc. [facility] Chronic Pain Care Plan Chronic Care Management No change(03/23 1:47 PM BRICK SORTER) No Ingrid Oden RN Note: Problem: Chronic Pain Goals: 1. Minimize further functional decline 2. Maximize quality of life 3. Control pain Strategies: - Activity/exercise program recommendation - Conservative stepwise pain medicine strategy with multi-disciplinary approach - Recommend healthy lifestyle strategies and compensatory methods as needed documented as of this encounter Results * (ABNORMAL) Albumin Creatinine Ratio, Urine (05/22/2019 1:01 PM BRICK SORTER) Albumin Ur 56.5 mg/L [facility] Comment: Interpretive Data No reference range established. Current interpretive data was last revised 2018. Creatinine Ur 114.4 mg/dL [facility] Comment: Interpretive Data No reference range established. Current interpretive data was last revised 2018. Albumin Creatinine Ratio, Ur 49(H) 1 - 29 mg/g [facility] Urine 05/22/2019 1:01 PM BRICK SORTER 05/22/2019 4:48 PM BRICK SORTER Katherine ESQUIVEL LAB URINE ORDERABLES Final Result [facility] [place] [address] documented in this encounter Visit Diagnoses Diagnosis Type 2 diabetes mellitus with stage 3 chronic kidney disease, without long-term current use of insulin (HCC)- Primary Essential hypertension Unspecified essential hypertension Chronic obstructive pulmonary disease, unspecified COPD type (HCC) PAF (paroxysmal atrial fibrillation) (CMS/HCC) (HCC) Atrial fibrillation Obesity (BMI 30-39.9) BMI 30.0-30.9,adult documented in this encounter Care Teams Sheriff'S Detective Relationship Specialty Start Date End Date Kraig Ching MD [address] [facility] [address] [place] [address] PCP - General 07/10/16 Gautam Cope MD [address] [facility] [address] [place] [address] Medical Oncologist/Configuration Developer Medical Oncology 08/18/18 Tramaine Roe MD [address] [facility] [address] [place] [address] Referring Physician Urology 08/18/18 Sukhwinder Uribe MD [address] [facility] [address] [place] [address] Consulting Physician Urology 08/18/18 Shay Guillermo MD [address] [facility] [address] [place] [address] Referring Physician Urology 08/18/18 Marsha Landis, RN Registered Nurse 11/17/18 Ilene Fragoso, SHEA [address] [place] [address] [address] [place] [address] Belt Conveyor Drier 12/23/18 11/01/19 documented as of this encounter
--- OUTSIDE RECORDS SUMMARY | 2024-03-31 05:00 | XMS_ITS | Encounter Summary ---
Author Organization [facility] Address [address] [place] [address] Phone Care Team Providers Care Funeral Director Name Role Phone Kraig Ching MD Primary Care Provider [phone] Gautam Cope MD Unavailable Tramaine Roe MD Unavailable [phone] Sukhwinder Uribe MD Unavailable [phone] Shay Guillermo MD Unavailable [phone] Marsha Landis RN Unavailable Unavailab Ilene Kaur RN Unavailable [phone] Encounter Details Date Type Department Care Team (Late st Contact Info) Description 08/22/2019 Orders Only [facility] Oncology [address] [facility] Advanced Medicine 7th [place] [address] [place] [address] Muna Saleem RN Prostate cancer [...] on file 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 Minimize further functional decline 2. Maximize quality of life 3. Control pain Strategies: - Activity/exercise program recommendation - Conservative stepwise pain medicine strategy with multi-disciplinary approach - Recommend healthy lifestyle strategies and compensatory methods as needed documented as of this encounter Results * PSA diagnostic (11/14/2019 10:07 AM CDT) PSA-Total <0.10 <=6.20 ng/mL [facility] [...] ORDERABLES Final Resul t [facility] Department [place] [address] * (ABNORMAL) Comprehensive metabolic panel (11/14/2019 10:07 AM CDT) Sodium 139 135 - 145 mmol/L [facility] Comment:Testing performed by : [facility], [address] [place] [phone] Potassium, pl 4.3 3.3 - 4.9 mmol/L [facility] Comment:Testing performed by : [facility], [address] [place] [phone] Chloride 100 97 - 110 mmol/L [facility] Comment:Testing performed by : [facility], [address] [place] [phone] CO2 29 22 - 32 mmol/L [facility] Comment:Testing performed by : [facility], [address] [place] [phone] Anion gap 10 2 - 15 mmol/L [facility] Comment:Testing performed by : [facility], [address] [place] [phone] BUN 37(H) 8 - 25 mg/dL [facility] Comment:Testing performed by : [facility], [address] [place] [phone] Creatinine 2.19(H) 0.80 - 1.30 mg/dL [facility] Comment:Testing performed by : [facility], [address] [place] [phone] Glucose 142 70 - 199 mg/dL [facility] Comment: [...] was last revised 2017. Testing performed by: [facility], [address] [place] [phone] Calcium 9.6 8.5 - 10.3 mg/dL [facility] Comment:Testing performed by : [facility], [address] [place] [phone] Bilirubin, total 0.5 0.1 - 1.2 mg/dL [facility] Comment:Testing performed by : [facility], [address] [place] [phone] Protein, pl 6.7 6.5 - 8.5 g/dL [facility] Comment:Testing performed by : [facility], [address] [place] [phone] Albumin 4.2 3.5 - 5.0 g/dL [facility] Comment:Testing performed by : [facility], [address] [place] [phone] Alk phos 110 40 - 130 Units/L [facility] Comment:Testing performed by : [facility], [address] [place] [phone] ALT 13 7 - 55 Units/L [facility] Comment:Testing performed by : [facility], [address] [place] [phone] AST 13 10 - 50 Units/L [facility] Comment:Testing performed by : [facility], [address] [place] [phone] Blood specimen (specimen) 11/14/2019 10:07 AM CDT 11/14/2019 10:10 AM CDT us Gautam Cope MD LAB BLOOD ORDERABLES Final Resul t [facility] Department [place] [address] * (ABNORMAL) CBC with auto differential (11/14/2019 10:07 AM CDT) WBC 9.8 3.8 - 9.8 K/cumm [facility] Comment:Testing performed by : [facility], [address] [place] [phone] Hgb 12.8(L) 13.8 - 17.2 g/dL [facility] Comment:Testing performed by : [facility], [address] [place] [phone] Hct 37.7(L) 40.7 - 50.3 % [facility] Comment:Testing performed by : [facility], [address] [place] [phone] Plt 337 140 - 440 K/cumm [facility] Comment:Testing performed by : [facility], [address] [place] [phone] MPV 7.8 6.8 - 10.4 fL [facility] Comment:Testing performed by : [facility], [address] [place] [address] RBC 4.23(L) 4.50 - 5.70 M/cumm [facility] Comment:Testing performed by : [facility], [address] [place] [address] MCV 89.3 80.0 - 97.6 fL [facility] Comment:Testing performed by : [facility], [address] [place], [place] [phone] MCH 30.3 26.7 - 33.7 pg [facility] Comment:Testing performed by : [place] [phone] MCHC 33.9 32.7 - 35.5 g/dL [facility] Comment:Testing performed by : [facility], [address] [place], [place] [phone] RDW CV 14.6 11.8 - 14.6 % [facility] Comment:Testing performed by : [place] [phone] NRBC abs 0.00 0.00 - 0.01 K/cumm [facility] Comment:Testing performed by : [place] [phone] Blood specimen (specimen) 11/14/2019 10:07 AM CDT 11/14/2019 10:10 AM CDT us Gautam Cope MD LAB BLOOD ORDERABLES Final Resul t [facility] Department [place] [address] * Lactate dehydrogenase (LD) (11/14/2019 10:07 AM CDT) Lactate dehydrogenase (LDH) 175 100 - 250 Units/L [facility] Comment:Testing performed by : [facility], [facility] [phone] Blood specimen (specimen) 11/14/2019 10:07 AM CDT 11/14/2019 10:10 AM CDT us Gautam Cope MD LAB BLOOD ORDERABLES Final Resul t Performing Organization Address City/State/[facility] Co me Phone Number [facility] Department [place] [address] documented in this encounter Visit Diagnoses Diagnosis Prostate cancer (HCC)- Primary Malignant neoplasm of prostate documented in this encounter Orders Appointment Requests Count Last Ordered Date Fi rst Ordered Date ONCBCN CLINIC APPOINTMENT REQUEST 1 020 ONCBCN INJECTION APPOINTMENT REQUEST 1 07/2019 ONCBCN LAB APPOINTMENT 1 11/14/2019 documented in this encounter Care Teams Funeral Director Relationship Specialty Start Date End Date Kraig Ching MD [address] [facility] [address] [place] [address] PCP - General 07/10/16 Gautam Cope MD [address] [facility] [address] [place] [address] Medical Oncologist/Porter Used Car Lot Medical Oncology 08/18/18 Tramaine Roe MD [address] [facility] [address] [place] [address] Referring Physician Urology 08/18/18 Sukhwinder Uribe MD [address] [facility] [address] [place] [address] Consulting Physician Urology 08/18/18 Shay Guillermo MD [address] [facility] [address] [place] [address] Referring Physician Urology 08/18/18 Marsha Landis, RN Registered Nurse 11/17/18 Ilene Fragoso, RN [address] [place] [address] Field Supervisor Seed Production 12/23/18 11/01/19 documented as of this encounter
--- OUTSIDE RECORDS SUMMARY | 2024-03-31 05:00 | XMS_ITS | Encounter Summary ---
Author Organization [facility] Address [address] [place] [address] Phone Care Team Providers Care Train Inspector Name Role Phone Kraig Ching MD Primary Care Provider [phone] Gautam Cope MD Unavailable Tramaine Roe MD Unavailable [phone] Sukhwinder Uribe MD Unavailable [phone] Shay Guillermo MD Unavailable [phone] Marsha Landis RN Unavailable Unavailab Ilene Kaur RN Unavailable [phone] Reason for Visit * Episode Based Medications (Routine) - Authorized Specialty Diagnoses / Procedures Referred By Contac t Referred To Contact Oncology Diagnoses Prostate cancer (HCC) Procedures WI LEUPROLIDE ACETATE SUSPNSION Leuprolide Every 3 Months - Prostate Gautam Cope MD [address] [facility] [address] [place] [address] Phone: tel: fax: [facility] [address] [facility] [address] [place] [address] Referral ID Status Reason Start Date Expiration Date V isits Requested Visits Authorized [id number] Authorized 09/06/2018 07/11/2024 1 50 Encounter Details Date Type Department Care Team (Late st Contact Info) Description 08/22/2019 12:15 PM CDT Infusion [facility] 7th [place] [address] Prostate cancer (CMS/HCC) (Primary Dx) Social History [...] 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 Return appointments given. Discharged ambulatory. documented in this encounter Plan of [...] Management No change(03/23 1:47 PM MENTAL HEALTH CONSULTANT) No Ingrid Oden, SHEA Note: Problem: [...] 22.5 mg 22.5 mg, intramuscular, Once, On Wed08/22/19 at 1145, For 1 doseIndications:Prostat e cancer (HCC) Given 08/22/2019 11:22 AM CDT 22.5 mg Right Ventrogluteal documented in this encounter Orders Nursing Count Last Ordered Date First Orde red Date ONCBCN TREATMENT PARAMETERS 2 1 08/22/2019 Appointment Requests Count Last Ordered Date Fi rst Ordered Date ONCBCN INJECTION APPOINTMENT REQUEST 1 08/10 documented in this encounter Care Teams Train Inspector Relationship Specialty Start Date End Date Kraig Ching MD [address] [facility] [address] [place] [address] PCP - General 07/10/16 Gautam Cope MD [address] [facility] [address] [place] [address] Medical Oncologist/Living Manager Medical Oncology 08/18/18 Tramaine Roe MD [address] [facility] [address] [place] [address] Referring Physician Urology 08/18/18 Sukhwinder Uribe MD [address] [facility] [address] [place] [address] Consulting Physician Urology 08/18/18 Shay Guillermo MD [address] [facility] [address] [place] [address] Referring Physician Urology 08/18/18 Marsha Landis, RN Registered Nurse 11/17/18 Ilene Fragoso, SHEA [address] [facility] [address] [place] [address] Goat Herder 12/23/18 11/01/19 documented as of this encounter
--- OUTSIDE RECORDS SUMMARY | 2024-03-31 05:00 | XMS_ITS | Encounter Summary ---
Author Organization [facility] Address [address] [place] [address] Care Team Providers Care Transplant Nurse Practitioner Name Role Phone Kraig Ching MD Primary Care Provider [phone] Gautam Cope MD Unavailable Tramaine Roe MD Unavailable [phone] Sukhwinder Uribe MD Unavailable [phone] Shay Guillermo MD Unavailable [phone] Marsha Landis RN Unavailable Unavailab le Encounter Details Date Type Department Care Team (Late st Contact Info) Description 12/14/2019 11:15 AM CDT Telemedicine [facility] [address] [place] [address] Kraig Ching MD [address] [facility] [facility] [address] [place] [address] Type 2 diabetes mellitus with stage 3 chronic kidney disease, without long-term current use of insulin (CMS/HCC) (Primary Dx); Hypertensive kidney disease with chronic kidney disease stage III (CMS/HCC); Hyperlipidemia, unspecified hyperlipidemia type; Prostate cancer (CMS/HCC) Social History Tobacco Use [...] file 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 Gender Identity Not on file Sexual Orientation Not on file documented as of this encounter Last Filed Vital Signs Vital Sign Reading Time Taken Comments Blood Pressure 160/62 12/14/2019 11:01 AM CDT Pulse 62 12/14/2019 11:01 AM CDT Temperature - - Respiratory Rate - - Oxygen Saturation 96% 12/14/2019 11:01 AM CDT Inhaled Oxygen Concentration - - Weight 96.2 kg (212 lb) 12/14/2019 11:01 AM CDT Height 182 cm (5' 11.65 ) 12/14/2019 11:01 AM CD T Body Mass Index 29.03 12/14/2019 11:01 AM CDT documented in this encounter Ordered Prescriptions Prescription Sig Dispense Quantity Refills Last Filled Start Date End Date oxyCODONE (ROXICODONE) 5 mg immediate release tabletIndications: Pain Take 1 tablet (5 mg total) by mouth every 6 (six) hours as needed for pain 28 tablet 12/14/2019 1 amLODIPine (NORVASC) 2.5 mg tabletIndications: Hypertensive kidney disease with chronic kidney disease stage III (HCC) Take 1 tablet (2.5 mg total) by mouth nightly 30 tablet 12/14/2019 0 documented in this encounter Progress Notes * Kraig Ching MD - 12/14/2019 11:15 AM CDT Images from the original note were not included. Subjective/Objective Patient ID: David Wei is a 79 y.o. male. Chief Complaint Diabetes HPI: This was a telemedicine visit with David Wei which took place via telephone. During the visit, I was located in my office at [facility] and the patient was located at home. The patient visit started at 11;07 and ended at . The visit was 25 minutes. The patient has been informed that the [...] billed and/or responsible for any applicable copayments. Kraig Ching MD 1.D.M. He reports compliance with Insulin and oral medications. His HgbA1C was 9.1 on 12/07/19. Recent sugars are improved to 120 to 130. Diabetes is complicated by CKD. 2.HTN.He is prescribed lisinopril and carvedilol. Hypertension is complicated by CKD. His creatinine was improved to 1.65 on 12/07/19. He follows with Nephrology. 3.Hyperlipidemia.He is prescribed pravastatin. He can not tolerate high potency statins. 4.Back Pain. He has DJD and a herniated disk. He has a history of prostate cancer. Pain gets worse after His prostate injection. Past Medical History: Diagnosis Date ??? A-fib [...] abdominal surgery wuth Pancreatic abcess/pancreatitis ??? PROSTATECTOMY 1999 Family History: Family History Problem [...] file Gets together: Not on file Attends anglican service: Not on file Active member of [...] Social History Narrative ??? Not on file Problem Prostate Cancer ([facility]) Hypertensive Kidney Disease With Chronic Kidney Disease Stage III ([facility]) Type 2 Diabetes Mellitus With Stage 3 Chronic Kidney Disease, Without Long-Term Current Use of Insulin ([facility]) Description: YEAR OF ONSET: 1989 Hyperlipidemia Current Outpatient Medications on File Prior to Visit Medication Sig Dispense Refill ??? abiraterone (ZYTIGA) 250 mg tablet Take 4 tablets (1,000 mg) by mouth daily. Do not eat anything for at least 2 hours before and for at least 1 hour after 120 tablet 5 ??? ACCU-CHEK FASTCLIX LANCET DRUM misc TEST BLOOD SUGAR BID 1 ??? Basaglar KwikPen U-100 Insulin 100 unit/mL (3 mL) insulin pen Inject 14 Units under the skin daily Reports changed to UNITS UNDER THE SKIN DAILY UTD. 1 pen 11 ??? BD Ultra-Fine Short Pen Needle 31 gauge x 5/16 needle USE DIRECTED TO INJECT INSULIN ONCE DAILY 100 each 0 ??? blood glucose diagnostic strip ??? carvediloL (COREG) 12.5 mg tablet Take 1 tablet (12.5 mg total) by mouth 2 (two) times a day with meals 120 tablet 2 ??? chlorthalidone 25 mg tablet Take 1 tablet (25 mg total) by mouth daily 30 tablet 11 ??? gabapentin (NEURONTIN) 100 mg capsule TAKE 2 CAPSULES(200 MG) BY MOUTH EVERY NIGHT 60 capsule 2 ??? JANUVIA 25 mg tablet TAKE 1 TABLET BY MOUTH DAILY 30 tablet 11 ??? lisinopriL (PRINIVIL,ZESTRIL) 20 mg tablet TAKE 1 TABLET(20 MG) BY MOUTH DAILY 30 tablet 5 ??? metFORMIN (GLUCOPHAGE) 500 mg tablet TAKE 1 TABLET(500 MG) BY MOUTH TWICE DAILY WITH MEALS 60 tablet 11 ??? ONETOUCH ULTRA BLUE TEST STRIP strip TEST SUGAR TWICE DAILY 100 each 3 ??? pantoprazole DR (PROTONIX) 40 mg EC tablet TAKE 1 TABLET(40 MG) BY MOUTH DAILY 90 tablet 1 ??? pravastatin (PRAVACHOL) 20 mg tablet TAKE 1 TABLET(20 MG) BY MOUTH DAILY 90 tablet 0 ??? TRAVATAN Z 0.004 % drops INT 1 DROP INTO OU QHS 5 ??? aspirin 81 mg tablet Take 1 tablet (81 mg total) by mouth daily. 30 tablet 11 ??? [DISCONTINUED] predniSONE (DELTASONE) 5 mg tablet Take 1 tablet (5 mg) by mouth two times a day60 tablet 11 No current facility-administered medications on file prior to visit. Review of Systems: Review of Systems Constitutional: Positive for fatigue. HENT: Negative for sore throat. Eyes: Negative for visual disturbance. Respiratory: Negative for shortness of breath. Cardiovascular: Negative for chest pain. Gastrointestinal: Negative for abdominal pain. Genitourinary: Negative for hematuria. Musculoskeletal: Positive for back pain. Negative for arthralgias. Skin: Negative for rash. Neurological: Negative for dizziness. Physical Exam: BP 160/62 (BP Location: Left arm, Patient Position: Sitting) Pulse 62 Ht 182 cm (5' 11.65 ) Wt 96.2 kg (212 lb) SpO2 96% BMI 29.03 kg/m?? Assessment/Plan Diagnoses and all orders for this visit: Type 2 diabetes mellitus with stage 3 chronic kidney disease, without long-term current use of insulin (CMS/HCC) (Primary) Assessment & Plan: Recent HgbA1C improved to 9. He has been referred to Endocrinology. Increase Lantus to . Hypertensive kidney disease with chronic kidney disease stage III (CMS/HCC) Assessment & Plan: Blood pressure is elevated. Add amlodipine.Reviewed creatinine 1.65 on 12/07/19. Follow with Nephrology. Orders: - amLODIPine (NORVASC) 2.5 mg tablet; Take 1 tablet (2.5 mg total) by mouth nightly Hyperlipidemia, unspecified hyperlipidemia type Assessment & Plan: Reviewed LDL 145 on 12/07/19. Continue pravastatin. He is intolerant of high potency statins. Prostate cancer ([facility]) Assessment & Plan: Follow with Oncology. Oxycodone for severe pain. Kraig Ching MD documented in this encounter Miscellaneous Notes * Assessment & Plan Note - Kraig Ching MD - 12/14/2019 11:27 AM CDT Associated Problem(s): Prostate cancer ([facility]) Follow with Oncology. Oxycodone for severe pain. * Assessment & Plan Note - Kraig Ching MD - 12/14/2019 7:09 AM CDT Associated Problem(s): Type 2 diabetes mellitus without complication, with long-term current use ofinsulin ([facility]) (HCC) (Resolved 10/02/2023) Recent HgbA1C improved to 9. He has been referred to Endocrinology. Increase Lantus to . * Assessment & Plan Note - Kraig Ching MD - 12/14/2019 7:08 AM CDT Associated Problem(s): Hypertensive kidney disease with chronic kidney disease stage III ([facility]) Blood pressure is elevated. Add amlodipine.Reviewed creatinine 1.65 on 12/07/19. Follow with Nephrology. * Assessment & Plan Note - Kraig Ching MD - 12/14/2019 7:07 AM CDT Associated Problem(s): Hyperlipidemia Reviewed LDL 145 on 12/07/19. Continue pravastatin. He is intolerant of high potency statins. documented in this encounter Plan of Treatment [...] Care Management No change(03/23 1:47 PM PLATE INSPECTOR) No Ingrid Oden, RN Note: Problem: [...] long-term current use of insulin (HCC)- Primary Hypertensive kidney disease with chronic kidney disease stage III (HCC) Unspecified hypertensive kidney disease with chronic kidney disease stage I through stage IV, or unspecified Hyperlipidemia, unspecified hyperlipidemia type Prostate cancer (HCC) Malignant neoplasm of prostate documented in this encounter Discontinued Medications Medication Sig Discontinue Reason Start Date End Da te predniSONE (DELTASONE) 5 mg tablet Take 1 tablet (5 mg) by mouth two times a day Therapy completed 10/20/2019 12/14/2019 documented as of this encounter Care Teams Transplant Nurse Practitioner Relationship Specialty Start Date End Date Kraig Ching MD [address] [place] [address] PCP - General 07/10/16 Gautam Cope MD [address] [place] [address] Medical Oncologist/Baggage Agent Supervisor Medical Oncology 08/18/18 Tramaine Roe MD [address] [place] [address] Referring Physician Urology 08/18/18 Sukhwinder Uribe MD [address] [place] [address] Consulting Physician Urology 08/18/18 Shay Guillermo MD [address] [place] [address] Referring Physician Urology 08/18/18 Marsha Landis, RN Registered Nurse 11/17/18 documented as of this encounter
--- OUTSIDE RECORDS SUMMARY | 2024-03-31 05:00 | XMS_ITS | Encounter Summary ---
Author Organization [facility] Address [address] [place] [address] Care Team Providers Care Food Operations Manager Name Role Phone Kraig Ching MD Primary Care Provider [phone] Gautam Cope MD Unavailable Tramaine Roe MD Unavailable [phone] Sukhwinder Uribe MD Unavailable [phone] Shay Guillermo MD Unavailable [phone] Marsha Landis RN Unavailable Unavailab Ilene Kaur RN Unavailable [phone] Encounter Details Date Type Department Care Team (Late st Contact Info) Description 08/25/2019 Telephone [facility] [address] [place] [id number] Yu Weaver RMA Social History Tobacco Use Types Packs/Day [...] on file 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 documented in this encounter Plan of Treatment [...] Chronic Care Management No change(03/23 1:47 PM BILINGUAL SALES REPRESENTATIVE) Ingrid Mcdaniels, SHEA Note: Problem: Chronic Pain Goals: 1. Minimize further functional decline 2. Maximize quality of life 3. Control pain Strategies: - Activity/exercise program recommendation - Conservative stepwise pain medicine strategy with multi-disciplinary approach - Recommend healthy lifestyle strategies and compensatory methods as needed documented as of this encounter Visit Diagnoses Not on filedocumented in this encounter Care Teams Food Operations Manager Relationship Specialty Start Date End Date Kraig Ching MD [address] [place] [address] PCP - General 07/10/16 Gautam Cope MD [address] [place] [address] Medical Oncologist/Yarn Hauler Medical Oncology 08/18/18 Tramaine Roe MD [address] [place] [address] Referring Physician Urology 08/18/18 Sukhwinder Uribe MD [address] [place] [address] Consulting Physician Urology 08/18/18 Shay Guillermo MD [address] [place] [address] Referring Physician Urology 08/18/18 Marsha Landis, RN Registered Nurse 11/17/18 Ilene Fragoso, SHEA [address] [place] [address] County Sheriff 12/23/18 11/01/19 documented as of this encounter
--- OUTSIDE RECORDS SUMMARY | 2024-03-31 05:00 | XMS_ITS | Encounter Summary ---
Author Organization [facility] Address [address] [place] [address] Phone Care Team Providers Care Family Centered Specialist Name Role Phone Kraig Ching MD Primary Care Provider [phone] Gautam Cope MD Unavailable Tramaine Roe MD Unavailable [phone] Sukhwinder Uribe MD Unavailable Shay Guillermo MD Unavailable [phone] Marsha Landis RN Unavailable Unavailab Ilene Kaur RN Unavailable [phone] Encounter Details Date Type Department Care Team (Late st Contact Info) Description 06/02/2019 Documentation [facility] Oncology [address] [place] [address] [place] [address] Muna Saleem RN Social History [...] on file 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 It was so bad that one time he stayed in bed all day and did not eat since it hurt too much to move his leg on the side of the injection. He does take 100m g of Gabapentin nightly but he thinks that did not help at all. He states that when he sees us on 08-22-19, he will want just 2 days worth of a prescription pain pill because he cannot go through thatmuch pain for so long again--roughly 48 hours. RIBUTING CLERK documented in this encounter Plan of Treatment [...] Chronic Care Management No change(03/23 1:47 PM DISTRIBUTING CLERK) No Ingrid Oden, SHEA Note: Problem: Chronic Pain Goals: 1. Minimize further functional decline 2. Maximize quality of life 3. Control pain Strategies: - Activity/exercise program recommendation - Conservative stepwise pain medicine strategy with multi-disciplinary approach - Recommend healthy lifestyle strategies and compensatory methods as needed documented as of this encounter Visit Diagnoses Not on filedocumented in this encounter Care Teams Family Centered Specialist Relationship Specialty Start Date End Date Kraig Ching MD [address] [facility] [address] [place] [address] PCP - General 07/10/16 Gautam Cope MD [address] [place] [address] Medical Oncologist/Land Sales Agent Medical Oncology 08/18/18 Tramaine Roe MD [address] [place] [address] Referring Physician Urology 08/18/18 Sukhwinder Uribe MD [address] [facility] [address] [place] [address] Consulting Physician Urology 08/18/18 Shay Guillermo MD [address] [facility] [address] [place] [address] Referring Physician Urology 08/18/18 Marsha Landis RN Registered Nurse 11/17/18 Ilene Fragoso, RN [address] [place] [address] Customer Service Engineer 12/23/18 11/01/19 documented as of this encounter
--- OUTSIDE RECORDS SUMMARY | 2024-03-31 05:00 | XMS_ITS | Encounter Summary ---
Author Organization [facility] Address [address] [place] [address] Phone Care Team Providers Care Staying Machine Operator Name Role Phone Kraig Ching MD Primary Care Provider [phone] Gautam Cope MD Unavailable Tramaine Roe MD Unavailable [phone] Sukhwinder Uribe MD Unavailable [phone] Shay Guillermo MD Unavailable [phone] Marsha Landis RN Unavailable Unavailab Ilene Kaur RN Unavailable [phone] Reason for Referral * Diagnostic Imaging (Routine) - Closed Specialty Diagnoses / Procedures Referred By Contac t Referred To Contact Diagnoses Prostate cancer (HCC) Procedures NM bone scan whole body Gautam Cope MD [address] [facility] [address] [place] [address] Phone: tel: fax: [address] [address] Referral ID Status Reason Start Date Expiration Date Visits Re quested Visits Authorized [id number] Closed 05/31/2019 12/09/2020 2 2 L ENGRAVER Encounter Details Date Type Department Care Team (Late st Contact Info) Description 05/31/[address] [facility] Oncology [address] 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 Minimize further functional decline 2. Maximize quality of life 3. Control pain Strategies: - Activity/exercise program recommendation - Conservative stepwise pain medicine strategy with multi-disciplinary approach - Recommend healthy lifestyle strategies and compensatory methods as needed documented as of this encounter Results * NM bone scan [...] by: Sandra Davila M.D. Gautam Cope MD [facility] PROCEDURES Final Result documented in this encounter Visit Diagnoses Diagnosis Prostate cancer (HCC)- Primary Malignant neoplasm of prostate Prostate cancer (HCC) Malignant neoplasm of prostate documented in this encounter Care Teams Staying Machine Operator Relationship Specialty Start Date End Date Kraig Ching MD [address] [address] PCP - General 07/10/16 Gautam Cope MD [address] [facility] [address] [place] [address] Medical Oncologist/It Business Analyst Medical Oncology 08/18/18 Tramaine Roe MD [address] [facility] [address] [place] [address] Referring Physician Urology 08/18/18 Sukhwinder Uribe MD [address] [facility] [address] [place] [address] Consulting Physician Urology 08/18/18 Shay Guillermo MD [address] [facility] [address] [place] [address] Referring Physician Urology 08/18/18 Marsha Landis, RN Registered Nurse 11/17/18 Ilene Fragoso, RN [address] [place] [address] [address] [place], [place] [id number] Helpdesk Manager 12/23/18 11/01/19 documented as of this encounter
--- OUTSIDE RECORDS SUMMARY | 2024-03-31 05:00 | XMS_ITS | Encounter Summary ---
Author Organization [facility] Address [address] [place] [address] Phone Care Team Providers Care Bariatric Coordinator Name Role Phone Kraig Ching MD Primary Care Provider [phone] Gautam Cope MD Unavailable Tramaine Roe MD Unavailable [phone] Sukhwinder Uribe MD Unavailable [phone] Shay Guillermo MD Unavailable [phone] Marsha Landis RN Unavailable Unavailab Ilene Kaur RN Unavailable [phone] Reason for Visit * Episode Based Medications (Routine) - Authorized Specialty Diagnoses / Procedures Referred By Contac t Referred To Contact Oncology Diagnoses Prostate cancer (HCC) Procedures [place] LEUPROLIDE ACETATE SUSPNSION Leuprolide Every 3 Months - Prostate Gautam Cope MD [address] [facility] [address] [place] [address] Phone: tel: fax: [facility] - Infusion [address] [facility] Floor 5 [place] [address] Referral ID Status Reason Start Date Expiration Date V isits Requested Visits Authorized [id number] Authorized 09/06/2018 07/11/2024 1 50 Encounter Details Date Type Department Care Team (Late st Contact Info) Description 05/30/2019 11:30 AM MERCHANDISING ASSISTANT Office Visit [facility] Oncology [address] [facility] 7th [place] [address] [place] [address] Gautam Cope MD [address] [facility] [address] [place], [place] [id number] Prostate cancer (CMS/HCC) (Primary Dx) Social History [...] on file Legal Sex Male 4:46 PM MERCHANDISING ASSISTANT Gender Identity Not on file Sexual Orientation Not on file documented as of this encounter Last Filed Vital Signs Vital Sign Reading Time Taken Comments Blood Pressure 149/66 05/30/2019 11:33 AM MERCHANDISING ASSISTANT Pulse 70 05/30/2019 11:33 AM MERCHANDISING ASSISTANT Temperature 36.9 ??C (98.4 ??F) 05/30/2019 1 1:33 AM MERCHANDISING ASSISTANT Respiratory Rate 18 05/30/2019 11:3 3 AM MERCHANDISING ASSISTANT Oxygen Saturation 94% 05/30/2019 11: 33 AM MERCHANDISING ASSISTANT Inhaled Oxygen Concentration - - Weight 100.6 kg (221 lb 12.8 oz) 2019 11:33 AM MERCHANDISING ASSISTANT Height - - Body Mass Index 31.38 05/22/2019 11:51 AM MERCHANDISING ASSISTANT documented in this encounter Progress Notes * Gautam Cope MD - 05/30/2019 12:00 AM CST PATIENT NAME: DAVID DREW : 1940 KATARINA: 05/30/2019 Mr. Drew is a 78-year-old with metastatic prostate cancer. He was diagnosed in April 1999, when he presented with a PSA of 5.5 and underwent a prostate biopsy showing [place] 3+4 disease. He was treated with a radical prostatectomy in June 1999, performed by Dr. Guillermo, showing [place] 4+3 disease with extracapsular extension and positive margin but negative lymph nodes. He did receive adjuvant radiation therapy, finishing in November 1999. By June 2012, his PSA was noted to be detectable and starting to rise. By July 2018, it was up to the double digits, and an MRI scan in August 2018showed recurrent local disease, and a bone scan showed involvement at L2. We met him in August 2018, and started him on Casodex followed by Lupron at the end of August. Additionally, we added abiraterone in October 2018. His major complaint continues to be hot flashes, which limit his sleep to some extent. Otherwise, he has done fairly well on therapy. He has no difficulty urinating. He has some minimal incontinence. He remains on abiraterone and prednisone. Comorbidities include chronic kidney disease, hypertension, paroxysmal atrial fibrillation, diabetes, and hyperlipidemia. His diabetes is controlled with insulin. He has recently been seen by his internal medicine doctor. He reports no new medical health problems, and all other review of systems are negative. PHYSICAL EXAMINATION: Vital Signs: Shows a male whose weight is 100.6 kg, with a BMI slightly above 30. His blood pressure is 149/66, pulse is 70. He is afebrile. His O2 saturation 94%. Performance Status: His performance status is 80%. Nodes: He has no palpable cervical adenopathy. Lungs: Expanded volumes, but clear to auscultation and percussion. Cardiac: Shows an S1 and S2, with an early systolic murmur and occasional abnormal beats. Abdomen: His abdominal exam shows no hepatosplenomegaly or palpable masses. Extremities: Trace edema. Neurological: Nonfocal. LABORATORY DATA: Laboratories in our office today include a hemoglobin of 12.1, white count 10,500, and platelet count 381,000. Other chemistries from today are pending. A1c was 11.4. His PSA from today is down to <0.10. ASSESSMENT AND PLAN: Metastatic prostate cancer. He was diagnosed in 1999 and underwent radical prostatectomy, followed by adjuvant radiation therapy. Hormonal therapy was begun in 2018. He remains on Lupron, abiraterone, and prednisone. We will see him again 3 months from now. We are planning to obtain a CT scan, bonescan, and bone density prior to that visit. ELECTRONICALLY SIGNED - 05/30/2019 07:09 PM Gautam Cope M.D. assembler caterpillar spider Shelia HANDISING ASSISTANT documented in this encounter Plan of Treatment [...] Chronic Care Management No change(03/23 1:47 PM MERCHANDISING ASSISTANT) No Ingrid Oden RN Note: Problem: Chronic Pain Goals: 1. Minimize further functional decline 2. Maximize quality of life 3. Control pain Strategies: - Activity/exercise program recommendation - Conservative stepwise pain medicine strategy with multi-disciplinary approach - Recommend healthy lifestyle strategies and compensatory methods as needed documented as of this encounter Results * PSA diagnostic (08/22/2019 10:08 AM CDT) [...] PERDOMO [facility] [place] [address] * (ABNORMAL) Comprehensive metabolic panel (08/22/2019 10:08 AM CDT) Sodium 139 135 - 145 mmol/L [facility] Comment:Testing performed by : [facility], [address] [place] [phone] Potassium, pl 4.7 3.3 - 4.9 mmol/L [facility]J Comment:Testing performed by : [facility], [address] [place] [phone] Chloride 99 97 - 110 mmol/L [facility]J Comment:Testing performed by : [facility], [address] [place] [phone] CO2 30 22 - 32 mmol/L [facility]J Comment:Testing performed by : [facility], [address] [place] [phone] Anion gap 10 2 - 15 mmol/L [facility]J Comment:Testing performed by : [facility], [address] [place] [phone] BUN 38(H) 8 - 25 mg/dL [facility]J Comment:Testing performed by : [facility], [address] [place] [phone] Creatinine 1.81(H) 0.80 - 1.30 mg/dL [facility]J Comment:Testing performed by : [facility], [address] [place] [phone] Glucose 229(H) 70 - 199 mg/dL CERNER [...] last revised 2017. Testing performed by: [facility], [address] [place] [address] Calcium 9.3 8.5 - 10.3 mg/dL [facility]J Comment:Testing performed by : [facility], [address] [place] [phone] Bilirubin, total 0.4 0.1 - 1.2 mg/dL [facility] BJ Comment:Testing performed by : [facility], [address] [place] [phone] Protein, pl 6.8 6.5 - 8.5 g/dL [facility] Comment:Testing performed by : [facility], [address] [place] [phone] Albumin 4.2 3.5 - 5.0 g/dL [facility] Comment:Testing performed by : [facility], [address] [place] [phone] Alk phos 111 40 - 130 Units/L [facility] Comment:Testing performed by : [facility], [address] [place] [phone] ALT 17 7 - 55 Units/L [facility] Comment:Testing performed by : [facility], [address] [place] [phone] AST 13 10 - 50 Units/L [facility] Comment:Testing performed by : [address] [phone] Blood specimen (specimen) 08/22/2019 10:08 AM CDT 08/22/2019 10:08 AM CDT us Gautam Cope MD LAB BLOOD ORDERABLES Final Resul t [facility] [place] [address] * (ABNORMAL) CBC with auto differential (08/22/2019 10:08 AM CDT) WBC 11.3(H) 3.8 - 9.8 K/cumm [facility] Comment:Testing performed by : [facility], [address] [place] [phone] Hgb 12.3(L) 13.8 - 17.2 g/dL [facility] Comment:Testing performed by : [address] [address] Hct 37.1(L) 40.7 - 50.3 % [facility] Comment:Testing performed by : [facility], [address] [place] [phone] Plt 398 140 - 440 K/cumm [facility] Comment:Testing performed by : [facility], [address] [place], [place] [phone] MPV 7.2 6.8 - 10.4 fL [facility] Comment:Testing performed by : [facility], [address] [place] [address] RBC 4.16(L) 4.50 - 5.70 M/cumm [facility] Comment:Testing performed by : [facility], [address] [place] [address] MCV 89.1 80.0 - 97.6 fL [facility] Comment:Testing performed by : [facility], [address] [place] [address] MCH 29.6 26.7 - 33.7 pg [facility] Comment:Testing performed by : [facility], [address] [place] [address] MCHC 33.2 32.7 - 35.5 g/dL [facility] Comment:Testing performed by : [facility], [address] [place], [place] [phone] RDW CV 14.0 11.8 - 14.6 % [facility] Comment:Testing performed by : [facility], [address] [place], [place] [phone] NRBC abs 0.00 0.00 - 0.01 K/cumm [facility] Comment:Testing performed by : [place] [address] Blood specimen (specimen) 08/22/2019 10:08 AM CDT 08/22/2019 10:08 AM CDT us Gautam Cope MD LAB BLOOD ORDERABLES Final Resul t [facility] [place] [address] * Lactate dehydrogenase (LD) (08/22/2019 10:08 AM CDT) Lactate dehydrogenase (LDH) 163 100 - 250 Units/L [facility] Comment:Testing performed by : [facility], [address] [facility] [address] Blood specimen (specimen) 08/22/2019 10:08 AM CDT 08/22/2019 10:08 AM CDT Gautam Cope MD LAB BLOOD ORDERABLES Final Resul t Performing Organization Address [facility] de Phone Number [facility] [place] [place] [address] * (ABNORMAL) Hemoglobin A1c (05/30/2019 10:55 AM MERCHANDISING ASSISTANT) Hgb A1C 11.4(H) 4.0 - 5.6 % [facility] Estimated Average Glucose 280 mg/dL [facility] Comment: The ADA recommends reporting an estimated Average Glucose (eAG) with all Hemoglobin A1c results using the equation derived from a study of 507 normal and diabetic adults. ??Minority populations were underrepresented and children were not included. ?? (Diabetes Care 31:6467-9240, 2008). ??The eAG is not equivalent to a fasting glucose. Blood specimen (specimen) 05/30/2019 10:55 AM MERCHANDISING ASSISTANT 05/30/2019 11:03 AM MERCHANDISING ASSISTANT Gautam Cope MD LAB BLOOD ORDERABLES Final Resul t Performing Organization Address [facility] de Phone Number [facility] [place] [address] documented in this encounter Visit Diagnoses Diagnosis Prostate cancer (HCC)- Primary Malignant neoplasm of prostate documented in this encounter Orders Appointment Requests Count Last Ordered Date Fi rst Ordered Date ONCBCN CLINIC APPOINTMENT REQUEST 2 020 05/30/2019 ONCBCN INJECTION APPOINTMENT REQUEST 1 08/10 ONCBCN LAB APPOINTMENT 1 08/22/2019 documented in this encounter Care Teams Bariatric Coordinator Relationship Specialty [place] [address] [place] [address] [address] [place] [address] PCP - General 07/10/16 Gautam Cope MD [address] [facility] [address] [place] [address] Medical Oncologist/Sas Etl Developer Medical Oncology 08/18/18 Tramaine Roe MD [address] [facility] [address] [place] [address] Referring Physician Urology 08/18/18 Sukhwinder Uribe MD [address] [facility] [address] [place] [address] Consulting Physician Urology 08/18/18 Shay Guillermo MD [address] [facility] [address] [place] [address] Referring Physician Urology 08/18/18 Marsha Landis, RN Registered Nurse 11/17/18 Ilene Fragoso, RN [address] [place] [address] [address] [place] [address] Shop And Alteration Tailor 12/23/18 11/01/19 documented as of this encounter
--- OUTSIDE RECORDS SUMMARY | 2024-03-31 05:00 | XMS_ITS | Encounter Summary ---
Author Organization [facility] Address [address] [place] [address] Phone Care Team Providers Care Repair Armature Winder Helper Name Role Phone Kraig Cihng MD Primary Care Provider [phone] Gautam Cope MD Unavailable Tramaine Roe MD Unavailable [phone] Sukhwinder Uribe MD Unavailable [phone] Shay Guillermo MD Unavailable [phone] Marsha Landis RN Unavailable Unavailab le Reason for Visit * Reason Comments Osteoporosis * Diagnostic Imaging (Routine) - Closed Specialty Diagnoses / Procedures Referred By Contulices t Referred To Contact Diagnoses Prostate cancer (HCC) Procedures Dexa Axial Skeleton Bone Density 1 or 2 Site Gautam Cope MD [address] [facility] [address] [address] Phone: tel: fax: [facility] (All Locations) Referral ID Status Reason Start Date Expiration Date Visits Re quested Visits Authorized [id number] Closed 11/13/2019 12/12/2020 1 1 Encounter Details Date Type Department Care Team (Latest Contact Info) Description 01/30/2020 11:10 AM CDT Clinical Support [facility] [address] [facility] Advanced Medicine 5th Floor [address] [address] Prostate cancer (CMS/HCC); Prophylactic use of leuprolide acetate (Lupron) Social History Tobacco Use Types Packs/Day Years [...] file 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 Gender Identity Not on file Sexual Orientation [...] Care Management No change(03/23 1:47 PM MACHINE STRIPPER) No Ingrid Oden RN Note: Problem: Chronic [...] SITES Schedule Routine, Read Routine (OP Routine) 01/30/2020 11:30 AM CDT Prostate cancer ([facility]) documented in this encounter Results * Dexa Axial Skeleton Bone Density 1 or 2 Site (01/30/2020 11:30 AM CDT) Anatomical Region Laterality Modality Body N/A Radiographic Roberta ging Narrative 01/31/2020 9:24 AM CDT Patient Name: David Wei Date of : 1940 Date of scan: 01/30/2020 Bone mineral density was performed on a HoloRiptide IO Discovery Densitometer. ?? Machine Cross-calibration and Precision [...] BMD of young normal adults. References: 1) Kelvin, Annals of Internal Medicine 114(11): ??919-923 (1990) 2) Aj, Lancet 341 : 72-75 (1992) 3) Nicholas, Journal Bone and Mineral Research 7(6): 633-8 (1991) 4) Guy, Journal Bone and Mineral Research 8(10):1227-33 (1992) The history and data sections of the bone mineral density scan were prepared by Tabatha MAST([place]) who is accredited by the International Society of Clinical Densitometry. The overall patient assessment and scan interpretation were performed by Terry Villa M.D. who is certified by the International Society of Clinical Densitometry. [id number] us Gautam Cope MD IMG DXA PROCEDURES Final Result documented in this encounter Visit Diagnoses Diagnosis Prostate cancer (HCC) Malignant neoplasm of prostate Prophylactic use of leuprolide acetate (Lupron) Prophylactic use of other agents affecting estrogen receptors and estrogen levels documented in this encounter Care Teams Repair Armature Winder Helper Relationship Specialty Start Date End Date Kraig Ching MD [address] [place] [address] [address] PCP - General 07/10/16 Gautam Cope MD [phone] Medical Oncologist/Community Recreation Programmer Medical Oncology 08/18/18 Tramaine Roe MD [phone] Referring Physician Urology 08/18/18 Sukhwinder Uribe MD [phone] Consulting Physician Urology 08/18/18 Shay Guillermo MD [phone] Referring Physician Urology 08/18/18 Marsha Landis, RN Registered Nurse 11/17/18 documented as of this encounter
--- OUTSIDE RECORDS SUMMARY | 2024-03-31 05:00 | XMS_ITS | Encounter Summary ---
Author Organization [facility] Address [address] [facility] [address] [place] [address] Care Team Providers Care Bread Dumper Name Role Phone Kraig Ching MD Primary Care Provider [phone] Gautam Cope MD Unavailable Tramaine Roe MD Unavailable [phone] Sukhwinder Uribe MD Unavailable [phone] Shay Guillermo MD Unavailable [phone] Marsha Landis RN Unavailable Unavailab le Reason for Visit * Reason Onset Date Comments ching - lab orders 12/04/2019 Encounter Details Date Type Department Care Team (Late st Contact Info) Description 12/04/2019 Telephone [facility] [address] [facility] [address] [place] [address] Kraig Ching MD [address] [facility] [address] [place], [place] [id number] ching - lab orders Social History Tobacco Use Types Packs/Day Years [...] on file Legal Sex Male 4:46 PM 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 PT say has Apt on Wed. Per Dr. Ching labs were already sent. * Telephone Encounter - Comfort Salas - 12/04/2019 1:53 PM CDT Initial request for labs, injections, and/or nurse visit: Type of Service Requested: blood work Reason for request (reason/symptom): blood work needed for next appointment on 12/13 Does patient want to have service performed at practice? no If patient wants service performed outside of practice, where (facility name, address, phone, and/or fax or is patient picking up order): [facility], [address], [place] [address] Caller???s Callback #: [phone] Additional Comments: Patient has orders in his chart for blood work from Dr. Ching from 10/09. Patient was not sure if they had been sent to [facility] yet. Please send and patient will try to get blood work completed before next appt. Did you relay expectation for processing (allow up to 24 hours for call back)? yes documented in this encounter Plan of Treatment [...] Chronic Care Management No change(03/23 1:47 PM NETWORK MANAGEMENT SPECIALIST) No Ingrid Oden RN Note: Problem: Chronic Pain Goals: 1. Minimize further functional decline 2. Maximize quality of life 3. Control pain Strategies: - Activity/exercise program recommendation - Conservative stepwise pain medicine strategy with multi-disciplinary approach - Recommend healthy lifestyle strategies and compensatory methods as needed documented as of this encounter Visit Diagnoses Not on filedocumented in this encounter Care Teams Bread Dumper Relationship Specialty Start Date End Date Kraig Ching MD [address] [facility] [address] [place] [address] PCP - General 07/10/16 Gautam Cope MD [id number] [place] [address] Medical Oncologist/Sox Analyst Medical Oncology 08/18/18 Tramaine Roe MD [id number] [place] [address] Referring Physician Urology 08/18/18 Sukhwinder Uribe MD [id number] [place] [address] Consulting Physician Urology 08/18/18 Shay Guillermo MD [id number] [place] [address] Referring Physician Urology 08/18/18 Marsha Landis RN Registered Nurse 11/17/18 documented as of this encounter
--- OUTSIDE RECORDS SUMMARY | 2024-03-31 05:00 | XMS_ITS | Encounter Summary ---
Author Organization [facility] Address [address] [place] [address] Phone Care Team Providers Care Hide Examiner Name Role Phone Kraig Ching MD Primary Care Provider [phone] Gautam Cope MD Unavailable Tramaine Roe MD Unavailable [phone] Sukhwinder Uribe MD Unavailable [phone] Shay Guillermo MD Unavailable [phone] Marsha Landis RN Unavailable Unavailab le Reason for Visit * Episode Based Medications (Routine) - Authorized Specialty Diagnoses / Procedures Referred By Saleem t Referred To Contact Oncology Diagnoses Prostate cancer (HCC) Procedures DE LEUPROLIDE ACETATE SUSPNSION Leuprolide Every 3 Months - Prostate Gautam Cope MD [address] [facility] [address] [place] [address] Phone: tel: fax: [facility] [address] [facility] [address] 5 [place] [address] Referral ID Status Reason Start Date Expiration Date V isits Requested Visits Authorized [id number] Authorized 09/06/2018 07/11/2024 1 50 Encounter Details Date Type Department Care Team (Late st Contact Info) Description 11/14/2019 12:30 PM CDT Infusion [facility] Oncology [address] [facility] Advanced Medicine 7th [place] [id number] Prostate cancer (CMS/HCC) (Primary Dx) Social History [...] on file 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 Pt reported first dose was ok, but then I hurt all over the next day..in My legs . Returned inj to dorsogluteal are to see if pain improves. Tolerated inj well without complaints voiced. D/C ambulatory ins table condition, itinerary in possession at d/c. documented in this encounter Plan of Treatment [...] Chronic Care Management No change(03/23 1:47 PM ROOFER ASSISTANT) No Ingrid Oden, SHEA Note: Problem: [...] 22.5 mg 22.5 mg, intramuscular, Once, On Wed11/14/19 at 1200, For 1 doseIndications:Prostate cancer (HCC) Given 11/14/2019 11:26 AM CDT 22.5 mg Left Dorsogluteal/Butt ock documented in this encounter Orders Nursing Count Last Ordered Date First Orde red Date ONCBCN TREATMENT PARAMETERS 2 1 11/14/2019 Appointment Requests Count Last Ordered Date Fi rst Ordered Date ONCBCN INJECTION APPOINTMENT REQUEST 1 07/2019 documented in this encounter Care Teams Hide Examiner Relationship Specialty Start Date End Date Kraig Ching MD [address] [place] [address] PCP - General 07/10/16 Gautam Cope MD [address] [place] [address] Medical Oncologist/Budget Technician Medical Oncology 08/18/18 Tramaine Roe MD [address] [place] [address] Referring Physician Urology 08/18/18 Sukhwinder Uribe MD [address] [place] [address] Consulting Physician Urology 08/18/18 Shay Guillermo MD [address] [place] [address] Referring Physician Urology 08/18/18 Marsha Landis, RN Registered Nurse 11/17/18 documented as of this encounter
--- OUTSIDE RECORDS SUMMARY | 2024-03-31 05:00 | XMS_ITS | Encounter Summary ---
Author Organization [facility] Address [address] [place] [address] Care Team Providers Care Corrections Nurse Name Role Phone Kraig Ching MD Primary Care Provider [phone] Gautam Cope MD Unavailable Tramaine Roe MD Unavailable [phone] Sukhwinder Uribe MD Unavailable Shay Guillermo MD Unavailable Marsha Landis RN Unavailable Unavailab Ilene Kaur RN Unavailable [phone] Reason for Visit * Reason Onset Date Comments frank - medical question 04/10/2019 Encounter Details Date Type Department Care Team (Late st Contact Info) Description 04/10/2019 Telephone [facility] [address] [place] [address] Kraig Ching MD [address] [facility] [address] [place] [address] frank - medical question Social History Tobacco Use Types Packs/Day [...] on file 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 DE SALES ADVERTISING EXECUTIVE * Telephone Encounter - Wendy Minaya CMA - 04/10/2019 9:39 AM CST fyi DE SALES ADVERTISING EXECUTIVE * Telephone Encounter - Nalini Leone - 04/10/2019 9:05 AM CST General Medical Question/Miscellaneous-Sent Message: Caller's Concern: Patient states that he has noticed that he is swelling around his feet and ankles. Duration 10 days States that he has an appt coming up in May and wanted Dr Ching or Katherine to know. Caller's Callback #: [phone] Did you relay expectation for processing (up to 24 hours)? DE SALES ADVERTISING EXECUTIVE documented in this encounter Plan of [...] Chronic Care Management No change(03/23 1:47 PM INSIDE SALES ADVERTISING EXECUTIVE) No Ingrid Oden, SHEA Note: Problem: Chronic Pain Goals: 1. Minimize further functional decline 2. Maximize quality of life 3. Control pain Strategies: - Activity/exercise program recommendation - Conservative stepwise pain medicine strategy with multi-disciplinary approach - Recommend healthy lifestyle strategies and compensatory methods as needed documented as of this encounter Visit Diagnoses Not on filedocumented in this encounter Care Teams Corrections Nurse Relationship Specialty Start Date End Date Kraig Ching MD [address] [place], [place] [id number] PCP - General 07/10/16 Gautam Cope MD [address] [place] [address] Medical Oncologist/Head Gauge Unit Operator Medical Oncology 08/18/18 Tramaine Roe MD [address] [facility] [address] [place] [address] Referring Physician Urology 08/18/18 Sukhwinder Uribe MD [address] [facility] [address] [place] [address] Consulting Physician Urology 08/18/18 Shay Guillermo MD [address] [facility] [address] [place] [address] Referring Physician Urology 08/18/18 Marsha Landis, RN Registered Nurse 11/17/18 Ilene Fragoso, RN [address] [place] [address] [address] [place] [address] Dining Room Hostess 12/23/18 11/01/19 documented as of this encounter
--- OUTSIDE RECORDS SUMMARY | 2024-03-31 05:00 | XMS_ITS | Encounter Summary ---
Author Organization 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 Minimize further functional decline 2. Maximize quality of life 3. Control pain Strategies: - Activity/exercise program recommendation - Conservative stepwise pain medicine strategy with multi-disciplinary approach - Recommend healthy lifestyle strategies and compensatory methods as needed documented as of this encounter Visit Diagnoses Not on filedocumented in this encounter Care Teams Contracts Specialist Relationship Specialty Start Date End Date Kraig Ching MD [address] [place] [address] PCP - General 07/10/16 Gautam Cope MD [address] [place] [address] Medical Oncologist/Mixer Runner Medical Oncology 08/18/18 Tramaine Roe MD [address] [place] [address] Referring Physician Urology 08/18/18 Skuhwinder Uribe MD [address] [place] [address] Consulting Physician Urology 08/18/18 Shay Guillermo MD [address] [place] [address] Referring Physician Urology 08/18/18 Marsha Landis, RN Registered Nurse 11/17/18 Ilene Fragoso, RN [address] [facility] [address] [place] [address] Trimmer Loader 12/23/18 11/01/19 documented as of this encounter
--- OUTSIDE RECORDS SUMMARY | 2024-03-31 05:00 | XMS_ITS | Encounter Summary ---
Author Organization [facility] Address [address] [place] [address] Phone Care Team Providers Care Information Resources Manager Name Role Phone Kraig Ching MD Primary Care Provider [phone] Gautam Cope MD Unavailable Tramaine Roe MD Unavailable [phone] Sukhwinder Uribe MD Unavailable [phone] Shay Guillermo MD Unavailable [phone] Marsha Landis RN Unavailable Unavailab Ilene Kaur RN Unavailable Reason for Visit * Episode Based Medications (Routine) - Authorized Specialty Diagnoses / Procedures Referred By Contac t Referred To Contact Oncology Diagnoses Prostate cancer (HCC) Procedures OH LEUPROLIDE ACETATE SUSPNSION Leuprolide Every 3 Months - Prostate Gautam Cope MD [address] [facility] [address] [place] [address] Phone: tel: fax: [facility] - Infusion [address] [facility] [address] [place] [address] Referral ID Status Reason Start Date Expiration Date V isits Requested Visits Authorized [id number] Authorized 09/06/2018 07/11/2024 1 50 Encounter Details Date Type Department Care Team (Late st Contact Info) Description 05/30/2019 12:30 PM IT COMPLIANCE MANAGER Infusion [facility] Oncology [address] [facility] Advanced [facility] 7th [place] [address] Prostate cancer (CMS/HCC) (Primary Dx) Social History [...] on file Legal Sex Male 4:46 PM IT COMPLIANCE MANAGER Gender Identity Not on file Sexual Orientation Not on file documented as of this encounter Nursing Notes * Kayley Worley RN - 05/30/2019 12:30 PM CST Pt tolerated injection to L buttock well. Next appts given. Discharged in stable condition. COMPLIANCE MANAGER documented in this encounter Plan of [...] Chronic Care Management No change(03/23 1:47 PM IT COMPLIANCE MANAGER) No Ingrid Oden, SHEA Note: Problem: [...] 22.5 mg 22.5 mg, intramuscular, Once, On Wed05/30/19 at 1245, For 1 doseIndications:Prostate cancer (HCC) Given 05/30/2019 12:09 PM IT COMPLIANCE MANAGER 22.5 mg Left Dorsogluteal/Butt ock documented in this encounter Orders Nursing Count Last Ordered Date First Orde red Date ONCBCN TREATMENT PARAMETERS 2 1 05/30/2019 Appointment Requests Count Last Ordered Date Fi rst Ordered Date ONCBCN INJECTION APPOINTMENT REQUEST 1 05/13 documented in this encounter Care Teams Information Resources Manager Relationship Specialty Start Date End Date Kraig Ching MD [address] [facility] [address] [place] [address] PCP - General 07/10/16 Gautam Cope MD [address] [facility] [address] [place] [address] Medical Oncologist/Waiter/Waitress Counter Medical Oncology 08/18/18 Tramaine Roe MD [address] [facility] [address] [place] [address] Referring Physician Urology 08/18/18 Sukhwinder Uribe MD [address] [facility] [address] [place] [address] Consulting Physician Urology 08/18/18 Shay Guillermo MD [address] [facility] [address] [place] [address] Referring Physician Urology 08/18/18 Marsha Landis, RN Registered Nurse 11/17/18 Ilene Fragoso, RN [address] [place] [address] [address] [place] [address] Patient Coordinator Front Desk 12/23/18 11/01/19 documented as of this encounter
--- OUTSIDE RECORDS SUMMARY | 2024-03-31 05:00 | XMS_ITS | Encounter Summary ---
Author Organization [facility] Address [address] [place] [address] Phone Care Team Providers Care Astrobiologist Name Role Phone Kraig Ching MD Primary Care Provider [phone] Gautam Cope MD Unavailable Tramaine Roe MD Unavailable [phone] Sukhwinder Uribe MD Unavailable [phone] Shay Guillermo MD Unavailable [phone] Marsha Landis RN Unavailable Unavailab le Encounter Details Date Type Department Care Team (Latest Contact Info) Description 12/06/2019 9:10 AM CDT Telemedicine [facility] Nephrology [address] 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 Gender Identity Not on file Sexual Orientation Not on file documented as of this encounter Ordered Prescriptions Prescription Sig Dispense Quantity Refills Last Filled Start Date End Date carvediloL (COREG) 12.5 mg tabletIndications: CKD (chronic kidney disease) stage 3, GFR 30-59 ml/min ([facility]) Take 1 tablet (12.5 mg total) by mouth 2 (two) times a day with meals 120 tablet 2 12/06/2019 06/05/2020 documented in this encounter Progress Notes * Marie Harkins MD - 12/06/2019 9:10 AM CDT NEPHROLOGY SUBSEQUENT OFFICE VISIT NOTE NAME: DAVID DREW DATE OF : 1940 DATE OF VISIT: 12/06/2019 This was a telemedicine visit with David Drew which took place via Real- time video connection (Data Stream CBOT, Zoom or similar). During the visit, I was located at the outpatient Nephrology Clinic on5th floor [facility] at [facility] and the patient was located at home in the state [facility]. I was present for the entire service with the fellow and patient/caregiver. I agree with the findings and plan of care as documented in the fellow's note. My visit with the patient started at 8:59 AM and ended at 9:26 AM. Total encounter time was 30 minutes, which includes time spent today on [...] replaces an office visit. Lin Guerrero MD MEDICAL PROBLEM LIST: 1. CKD stage 3 likely secondary to diabetes mellitus and hypertension 2. COPD 3. Paroxysmal atrial fibrillation, Xarelto on hold 4. Type II diabetes mellitus, not on insulin, last A1C 7.3 in 08/2017 5. Essential Hypertension 6. Dyslipidemia 7. Pancreatitis in 1999 8. Duodenal Ulcer, EGD 10/2017 9. Prostate Cancer in 1999, [id number], status post radical prostatectomy with subsequent external beam radiation therapy. Now with rising PSA and newly discovered spinal metastasis, meeting with oncology on 09/06/2018 REASON FOR OFFICE VISIT: Follow up for CKD INTERVAL HISTORY: Mr. David Drew is a 78 year-old gentleman who returns for follow up of his CKD stage III. He was last seen in the renal clinic on 09/06/2019. Since last visit, patient states hehas been working on glycemic control but HbA1C was 10% this month. BP has been particularly high inthe morning 180/79 before taking lisinopril, however around 5 pm is BP is better at approximately 130/70. Lisinopril was recently decreased from 40 mg to 20 mg. Diltiazem was changed to carvedilol 6.25 mg bid on 10/09. He has followed closely with Oncology for [...] for at least 1 hour after ??? aspirin 81 mg tablet Take 1 tablet (81 mg total) by mouth daily. ??? Basaglar KwikPen U-100 Insulin 100 unit/mL (3 mL) insulin pen Inject 14 Units under the skin daily Reports changed to [id number] UNITS UNDER THE SKIN DAILY UTD. ??? carvediloL (COREG) 12.5 mg tablet Take 0.5 tablet (6.25 mg total) by mouth 2 (two) times [...] STRIP strip TEST SUGAR TWICE DAILY ??? pantoprazole DR (PROTONIX) 40 mg EC tablet TAKE 1 TABLET(40 MG) BY MOUTH DAILY ??? pravastatin (PRAVACHOL) 20 mg tablet TAKE 1 TABLET(20 MG) BY MOUTH DAILY ??? TRAVATAN Z 0.004 % drops INT 1 DROP INTO OU QHS ??? Accu-Chek Fastclix Lancet Drum misc TEST BLOOD SUGAR TWICE DAILY ??? oxyCODONE (ROXICODONE) 5 mg immediate release tablet Take 1 tablet (5 mg total) by mouth every 6 (six) hours as needed for pain PHYSICAL EXAM No physical examination was performed as this was a real time audio/video encounter. LABORATORY DATA DATE Na K CO2 BUN SCr Alb Ca Phos iPTH 25-OH Vit D Hb TSAT Ferritin U P/C U Alb/Cr eGFR (CKD-EPI) 12/07/2019 138 4.2 30 28 1.65 4.0 [...] Renal function had remained stable with Cr 1.7-1.8 until last month when creatinine increasedto 2.19. Today, we discussed the importance of improved glycemic and BP control. We will reassess renal function today. 2. Hypertension: His BP is not at goal especially in the morning. He is currently on carvedilol 6.25 mg bid, we will increase it to 12.5 mg bid. Will not increase lisinopril dose given risk of hyperkalemia in the past. 3. Secondary hyperparathyroidism: We will check an iPTH prior to next visit. He can take OTC vitamin D for mild vitamin D deficiency. 4. Hyperkalemia: This has resolved. He is tolerating lisinopril well. DISPOSITION: The patient will return follow up in 3 months with labs. Marie Harkins MD Nephrology fellow [facility] Nephrology documented in this encounter Plan of Treatment [...] Chronic Care Management No change(03/23 1:47 PM DELICATESSEN MANAGER) No Ingrid Oden, RN Note: Problem: [...] Associated Diagnosis Comments COPY RECEIVED FROM Routine 12/07/2019 9: 22 AM CDT COPY(IES) SENT TO: Routine 12/07/2019 9: 22 AM CDT URINALYSIS AND REFLEX TO MICROSCOPIC AND CULTURE Routine 12/07/2019 9:22 AM CDT CKD (chronic kidney disease) stage 3, GFR 30-59 ml/min (CMS/HCC) PROTEIN / CREATININE RATIO, URINE, RANDOM Routine 12/07/2019 9:22 AM CDT CKD (chronic kidney disease) stage 3, GFR 30-59 ml/min (CMS/HCC) documented in this encounter Results * Copy received from (12/07/2019 9:22 AM CDT) Copy Rec'd from: [facility] Comment: ?[facility] - INTERNAL MED-RENAL ?[address] ?[place] [address] 12/07/2019 9:22 AM CDT 12/07/2019 9:23 AM CDT Narrative [facility] - 12/08/2019 12:05 PM CDT 2ND ORDER FASTING:YES FASTING: YES Marie Harkins MD LAB BLOOD ORDERABLES Final Resul t Performing Organization Address [facility] de Phone Number [facility] * COPY(IES) SENT TO: (12/07/2019 9:22 AM CDT) COPY(IES) SENT TO: [facility] Comment: ?[facility] U INTERNAL MED RENAL ?[address] ?[address] ?[place] [address] 12/07/2019 9:22 AM CDT 12/07/2019 9:23 AM CDT Narrative [facility] - 12/08/2019 12:01 PM CDT 2ND ORDER FASTING:YES FASTING: YES Result [facility] Marie Harkins MD LAB BLOOD ORDERABLES Final Resul t Performing Organization Address [facility] de Phone Number [facility] * Urinalysis reflex to microscopic and culture Urine, bladder (12/07/2019 9:22 AM CDT) Color, ur YELLOW YELLOW [facility] Appearance, ur CLEAR CLEAR [facility] Specific gravity 1.006 1.001 - 1.035 [facility] pH, ur 6.5 5.0 - 8.0 [facility] Glucose, ur NEGATIVE NEGATIVE [facility] Bilirubin, ur NEGATIVE NEGATIVE [facility] Ketones, ur NEGATIVE NEGATIVE [facility] Blood, ur NEGATIVE NEGATIVE [facility] Protein, ur, quant NEGATIVE NEGATIVE [facility] Nitrites, ur NEGATIVE NEGATIVE [facility] Leukocyte esterase, ur NEGATIVE NEGATIVE [facility] WBC, ur NONE SEEN < OR = 5 /HPF [facility] RBC, ur NONE SEEN < OR = 2 /HPF [facility] Epithelial cells, squamous, ur NONE SEEN < OR = 5 /HPF [facility] Epithelial cells, transitional CANCELED < OR = 5 /HPF [facility] Comment:Result canceled by t he ancillary. Epithelial cells, renal, ur CANCELED < OR = 3 /HPF [facility] Comment:Result canceled by t he ancillary. Bacteria, ur, quant NONE SEEN NONE SEEN /HPF [facility] Calcium oxalate crystals, ur CANCELED NONE OR FEW /HPF [facility] Comment:Result canceled by t he ancillary. Triple phosphate crystals, ur CANCELED NONE OR FEW /HPF [facility] Comment:Result canceled by t he ancillary. Uric acid crystals, ur CANCELED NONE OR FEW /HPF [facility] Comment:Result canceled by t he ancillary. Amorphous crystals, ur CANCELED NONE OR FEW /HPF [facility] Comment:Result canceled by t he ancillary. Crystals, ur CANCELED NONE SEEN /HPF [facility] Comment:Result canceled by t he ancillary. Hyaline cast NONE SEEN NONE SEEN /LPF [facility] Granular casts, ur CANCELED NONE SEEN /LPF [facility] Comment:Result canceled by t he ancillary. Casts CANCELED NONE SEEN /LPF [facility] Comment:Result canceled by t he ancillary. Yeast, ur CANCELED NONE SEEN /HPF [facility] Comment:Result canceled by t he ancillary. Comments CANCELED [facility] Comment:Result canceled by t he ancillary. Note CANCELED [facility] Comment:Result canceled by t he ancillary. Urine culture NO CULTURE INDICATED [facility] Urine, bladder 12/07/2019 9: 22 AM CDT 12/07/2019 9:23 AM CDT Narrative [facility] - 12/08/2019 12:05 PM CDT 2ND ORDER FASTING:YES FASTING: YES us Marie Harkins MD LAB MICROBIOLOGY - GENERAL ORDER ALAN Final Result [facility] [address] [address] * (ABNORMAL) Protein / creatinine ratio, urine, random (12/07/2019 9:22 AM CDT) Creatinine, ur 32 20 - 320 mg/dL [facility] Protein/creati nine ratio 500(H) 22 - 128 mg/g creat [facility] Protein/Creati nine Ratio 0.500(H) 0.022 - 0.128 mg/mg creat [facility] Protein, ur, quant 16 5 - 25 mg/dL [facility] Urine 12/07/2019 9:22 AM CDT 12/07/2019 9:23 AM CDT Narrative [facility] - 12/08/2019 12:05 PM CDT 2ND ORDER FASTING:YES FASTING: YES us Marie Harkins MD LAB URINE ORDERABLES Final Resul t [facility] [address] [place] [address] documented in this encounter Visit Diagnoses Diagnosis Essential hypertension- Primary Unspecified essential hypertension CKD (chronic kidney disease) stage 3, GFR 30-59 ml/min (HCC) Chronic kidney disease, Stage III (moderate) Secondary hyperparathyroidism of renal origin (HCC) Secondary hyperparathyroidism (of renal origin) Vitamin D deficiency disease Unspecified vitamin D deficiency documented in this encounter Discontinued Medications Medication Sig Discontinue Reason Start Date End Da te albuterol HFA (Ventolin HFA) 90 mcg/actuation inhalerIndications: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 Design 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 obstructive pulmonary disease, unspecified COPD type ([facility]) Inhale 2 puffs every 4 (four) hours as needed for wheezing or shortness of breath 05/22/2019 12/06/2019 diltiaZEM (CARDIZEM) 120 mg tablet 10/10/2019 12/06/2019 carvediloL (COREG) 6.25 mg tabletIndications:Hyper tensive kidney disease with chronic kidney disease stage III (HCC) Take 1 tablet (6.25 mg total) by mouth 2 (two) times a day with meals Reorder 10/10/2019 12/06/2019 documented as of this encounter Care Teams Astrobiologist Relationship Specialty Start Date End Date Kraig Ching MD [address] [facility] [address] [place] [address] PCP - General 07/10/16 Gautam Cope MD [address] [facility] [address] [place] [address] Medical Oncologist/Cycle Liaison Medical Oncology 08/18/18 Tramaine Roe MD [address] [facility] [address] [place] [address] Referring Physician Urology 08/18/18 Sukhwinder Uribe MD [address] [facility] [address] [place] [address] Consulting Physician Urology 08/18/18 Shay Guillermo MD [address] [facility] [address] [place] [address] Referring Physician Urology 08/18/18 Marsha Landis, RN Registered Nurse 11/17/18 documented as of this encounter
--- OUTSIDE RECORDS SUMMARY | 2024-03-31 05:00 | XMS_ITS | Encounter Summary ---
Author Organization [facility] Address [address] [place] [address] Care Team Providers Care Manager Treasury Name Role Phone Kraig Ching MD Primary Care Provider [phone] Gautam Cope MD Unavailable Tramaine Roe MD Unavailable [phone] Sukhwinder Uribe MD Unavailable [phone] Shay Guillermo MD Unavailable [phone] Marsha Landis RN Unavailable Unavailab Ilene Kaur RN Unavailable [phone] Reason for Visit * Reason Onset Date Comments Appointment 09/07/2019 Patient would li ke telephonic appointment at end of 09/2019. 10/10/19 11:15 AM would be acceptible, Encounter Details Date Type Department Care Team (Late Contact Info) Description 09/07/2019 Telephone [facility] [address] [facility] [address] [place] [address] Kraig Ching MD [address] [facility] [address] [place], [place] [id number] Appointment (Patient would like telephonic appointment at end of 09/2019. 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 * Telephone Encounter - Ilene Fragoso RN - 09/07/2019 4:40 PM CDT Patient unable to attend appointment 08/30/19. Patient would like telephonic appointment at end of 09/2019. 10/10/19 11:15 AM would be acceptable. ( CM unable to complete scheduling of telephone appointment. Please advise and assist patient to establish appointment. Patient indicated would be open to another date if needed. Please contact patient. Thank you Ilene Fragoso RN, BSN, MSN Nurse Private Duty, [facility] [email or web address] [phone] documented in this encounter Plan of Treatment [...] to monitor diabetes and kidney status, etc. [facility] Chronic Pain Care Plan Chronic Care Management No change(03/23 1:47 PM WEEKEND CAREGIVER) No Ingrid Oden, SHEA Note: Problem: Chronic Pain Goals: 1. Minimize further functional decline 2. Maximize quality of life 3. Control pain Strategies: - Activity/exercise program recommendation - Conservative stepwise pain medicine strategy with multi-disciplinary approach - Recommend healthy lifestyle strategies and compensatory methods as needed documented as of this encounter Visit Diagnoses Not on filedocumented in this encounter Care Teams Manager Treasury Relationship Specialty Start Date End Date Kraig Ching MD [address] [facility] [address] [place] [address] PCP - General 07/10/16 Gautam Cope MD [address] [facility] [address] [place] [address] Medical Oncologist/Lead Sharepoint Developer Medical Oncology 08/18/18 Tramaine Roe MD [address] [facility] [address] [place] [address] Referring Physician Urology 08/18/18 Sukhwinder Uribe MD [address] [facility] [address] [place] [address] Consulting Physician Urology 08/18/18 Shay Guillermo MD [address] [facility] [address] [place] [address] Referring Physician Urology 08/18/18 Marsha Landis RN Registered Nurse 11/17/18 Ilene Fragoso, SHEA [address] [place] [address] [address] [place] [address] Nurse Private Duty 12/23/18 11/01/19 documented as of this encounter
--- OUTSIDE RECORDS SUMMARY | 2024-03-31 05:00 | XMS_ITS | Encounter Summary ---
Author Organization [facility] Address [address] [place] [address] Phone Care Team Providers Care Gore Seamer Name Role Phone Kraig Ching MD Primary Care Provider [phone] Gautam Cope MD Unavailable Tramaine Roe MD Unavailable Sukhwinder Uribe MD Unavailable [phone] Shay Guillermo MD Unavailable [phone] Marsha Landis RN Unavailable Unavailab le Reason for Visit * Episode Based Medications (Routine) - Authorized Specialty Diagnoses / Procedures Referred By Saleem narvaez Referred To Contact Oncology Diagnoses Prostate cancer (HCC) Procedures NE LEUPROLIDE ACETATE SUSPNSION Leuprolide Every 3 Months - Prostate Gautam Cope MD [address] [facility] [address] [place] [address] Phone: tel: fax: [facility] [address] [facility] [address] [place] [address] Referral ID Status Reason Start Date Expiration Date V isits Requested Visits Authorized [id number] Authorized 09/06/2018 07/11/2024 1 50 Encounter Details Date Type Department Care Team (Late st Contact Info) Description 02/06/2020 10:30 AM CDT Office Visit [facility] [address] [place] [address] 7th [place] [address] [place] [id number] Gautam Cope MD [address] 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 Gender Identity Not on file Sexual Orientation Not on file documented as of this encounter Last Filed Vital Signs Vital Sign Reading Time Taken Comments Blood Pressure 130/73 02/06/2020 10:15 AM CDT Pulse 80 02/06/2020 10:15 AM CDT Temperature 36.8 ??C (98.3 ??F) 02/06/2020 10:15 AM C DT Respiratory Rate 18 02/06/2020 10:12 AM CDT Oxygen Saturation 95% 02/06/2020 10:15 AM CDT Inhaled Oxygen Concentration - - Weight 97 kg (213 lb 12.8 oz) 02/06/2020 10:12 A M CDT Height - - Body Mass Index 29.28 12/14/2019 11:01 AM CDT documented in this encounter Progress Notes * Gautam Cope MD - 02/06/2020 12:00 AM CDT PATIENT NAME: DAVID DREW : 1940 [place]: 02/06/2020 Mr. Drew is an 79-year-old with metastatic prostate cancer. In October 1999, he was noted to havea PSA of 5.5, leading to a biopsy, which showed Louise 3 + 4 disease. He ended up with a radical prostatectomy, performed by Dr. Guillermo, showing Louise 4 + 3 disease with extracapsular extension and positive margin, but no lymph node involvement. He did undergo adjuvant radiation therapy, finish ing in November 1999. Thirteen years later, in June 2012, his PSA was noted to be rising. By October 2018, it was noted to be in the double digits. An MRI scan in August 2018 suggested local recurrence, despite the surgery and radiation therapy. He was also found to have some involvement at L2. We met thepatient in August 2018, and started him on Casodex followed by Lupron and added abiraterone in October. He is tolerating therapy quite well, but does report pain with his injections. We discussed thattoday we are switching the injections from the intramuscular to the subcutaneous and will see if that improves things. He has been given some pain medication by his primary care physician, but this is more for his chronic low back pain, which is continuing. He is not exercising regularly. He does have a long history of low back pain, which he in the past received steroid injections for, and he isinterested in meeting with Pain Management, which he is scheduled in March for additional injections. Additional comorbidities include diabetes, chronic kidney disease, hypertension, paroxysmal atrial fibrillation, hyperlipidemia, and tobacco use. He has had several virtual meetings with his hand profiler and continues with his primary care physician. The patient is slowly losing some weight and has lost another few pounds since we last saw him. All other review of systems are negative. PHYSICAL EXAMINATION: Vital Signs: Shows a male whose weight is 97 kg, with a BMI of 29.3. Blood pressure is 130/73, pulse is 80. He is afebrile. His O2 saturation 95%. Performance Status: His performance status has slipped to 70% because of his chronic low back pain. Nodes: He has no palpable cervical adenopathy. Lungs: Clear to auscultation and percussion. Cardiac: Shows an S1 and S2, with an early systolic murmur. Abdomen: His abdominal exam shows no hepatosplenomegaly or palpable masses. Bowel sounds are present. He does have some pain to percussion in his lower back. Extremities: Trace bilateral edema with good range of motion. Neurological: Nonfocal, but he does move somewhat gingerly. LABORATORY AND DIAGNOSTIC DATA: Laboratories today show a hemoglobin of 12.4, white count 13,000, platelet count 390,000. His creatinine today is 1.8, which is up about where it has been running. Sometimes, it is above 2. His nonfasting random glucose is 208. His A1c today is 9.0. His PSA, since starting hormonal therapy, has been <0.10. The patient did have a bone density done on January 29, with findings close to the normal young adult mean. ASSESSMENT AND PLAN: Metastatic prostate cancer, currently on Lupron, abiraterone, and prednisone. The patient is doing well. His bone density is reassuring. He does not need additional medication, but he does continue on his calcium and vitamin D. We are sorry to see that he is having back pain problems, and we hope this will be improved by meeting with Pain Management. Currently, his cancer was diagnosed in 1999, treated with surgery, followed by adjuvant radiation therapy at that time. Nineteen years later, he was started on hormonal therapy and continues at this time with good serological and radiological response. We are planning to see him again 3 months from now. We are planning to repeat a bone scan andCT scan without contrast just prior to that visit. ELECTRONICALLY SIGNED - 02/06/2020 06:54 PM Gautam Cope M.D. avionics systems repairer GLORIA/lul documented in this encounter Plan of [...] Chronic Care Management No change(03/23 1:47 PM ACETYLENE CYLINDER PACKING MIXER) No Ingrid Oden, SHEA Note: Problem: Chronic Pain Goals: 1. Minimize further functional decline 2. Maximize quality of life 3. Control pain Strategies: - Activity/exercise program recommendation - Conservative stepwise pain medicine strategy with multi-disciplinary approach - Recommend healthy lifestyle strategies and compensatory methods as needed documented as of this encounter Results * PSA diagnostic (04/30/2020 10:07 AM ACETYLENE CYLINDER PACKING MIXER) PSA-Total <0.10 <=6.20 ng/mL [facility] Comment: Interpretive Data ?AGE ? SEX ?REFERENCE INTERVAL 0 minutes-150 years ?Female ?None 0 minutes-49 years ? Male ?None ? 50-59 years ? Male ?0-3.90 ? 60-69 years ? Male ?0-5.40 ? 70-79 years ? Male ?0-6.20 ? 80-150 years ?Male ?0-6.20 Current interpretive data last revised 2017. Blood specimen (specimen) 04/30/2020 10:07 AM ACETYLENE CYLINDER PACKING MIXER 04/30/2020 10:34 AM ACETYLENE CYLINDER PACKING MIXER us Gautam Cope MD LAB BLOOD ORDERABLES Final Resul t [facility] One [facility] Department [place] [address] * (ABNORMAL) Comprehensive metabolic panel (04/30/2020 10:07 AM ACETYLENE CYLINDER PACKING MIXER) Sodium 139 135 - 145 mmol/L [facility] Comment:Testing performed by : [facility], [address] [place] [phone] Potassium, pl 4.1 3.3 - 4.9 mmol/L [facility] Comment:Testing performed by : [facility], [address] [place] [phone] Chloride 99 97 - 110 mmol/L [facility] Comment:Testing performed by : [facility], [address] [place] [phone] CO2 33(H) 22 - 32 mmol/L [facility] Comment:Testing performed by : [facility], [address] [place] [phone] Anion gap 7 2 - 15 mmol/L [facility] Comment:Testing performed by : [facility], [address] [place] [phone] BUN 32(H) 8 - 25 mg/dL [facility] Comment:Testing performed by : [facility], [address] [place] [phone] Creatinine 1.83(H) 0.80 - 1.30 mg/dL [facility] Comment:Testing performed by : [facility], [address] [place] [phone] Glucose 125 70 - 199 mg/dL [facility] Comment: [...] was last revised 2017. Testing performed by: [address] [phone] Calcium 9.9 8.5 - 10.3 mg/dL [facility] Comment:Testing performed by : [address] [phone] Bilirubin, total 0.5 0.1 - 1.2 mg/dL [facility] Comment:Testing performed by : [facility], [address] [place] [phone] Protein, pl 7.6 6.5 - 8.5 g/dL [facility] Comment:Testing performed by : [address] [phone] Albumin 4.5 3.5 - 5.0 g/dL [facility] Comment:Testing performed by : [address] [phone] Alk phos 115 40 - 130 Units/L [facility] Comment:Testing performed by : [place] [phone] ALT 10 7 - 55 Units/L [facility] Comment:Testing performed by : [address] [phone] AST 11 10 - 50 Units/L [facility] Comment:Testing performed by : [address] [phone] Blood specimen (specimen) 04/30/2020 10:07 AM ACETYLENE CYLINDER PACKING MIXER 04/30/2020 10:19 AM ACETYLENE CYLINDER PACKING MIXER us Gautam Cope MD LAB BLOOD ORDERABLES Final Resul t [facility] One [facility] Department [place] [address] * (ABNORMAL) CBC with auto differential (04/30/2020 10:07 AM ACETYLENE CYLINDER PACKING MIXER) WBC 10.0(H) 3.8 - 9.8 K/cumm [facility] Comment:Testing performed by : [facility], [address] [place] [phone] Hgb 12.1(L) 13.8 - 17.2 g/dL [facility] Comment:Testing performed by : [address] [phone] Hct 37.0(L) 40.7 - 50.3 % [facility] Comment:Testing performed by : [facility], [address] [place] [phone] Plt 439 140 - 440 K/cumm [facility] Comment:Testing performed by : [address] [phone] MPV 6.7(L) 6.8 - 10.4 fL [facility] Comment:Testing performed by : [address] [phone] RBC 4.18(L) 4.50 - 5.70 M/cumm [facility] Comment:Testing performed by : [facility], [address] [place] [phone] MCV 88.4 80.0 - 97.6 fL [facility] Comment:Testing performed by : [address] [phone] MCH 29.0 26.7 - 33.7 pg [facility] Comment:Testing performed by : [address] [phone] MCHC 32.8 32.7 - 35.5 g/dL [facility] Comment:Testing performed by : [address] [phone] RDW CV 14.0 11.8 - 14.6 % [facility] Comment:Testing performed by : [facility], [address] [place] [phone] NRBC abs 0.01 0.00 - 0.01 K/cumm [facility] Comment:Testing performed by : [facility], [address] [place] [phone] Blood specimen (specimen) 04/30/2020 10:07 AM ACETYLENE CYLINDER PACKING MIXER 04/30/2020 10:19 AM ACETYLENE CYLINDER PACKING MIXER us Gautam Cope MD LAB BLOOD ORDERABLES Final Resul t Performing Organization Address City/[facility]/ZIP Co de Phone Number [facility] [place] [address] * Lactate dehydrogenase (LD) (04/30/2020 10:07 AM ACETYLENE CYLINDER PACKING MIXER) Pathologist [facility] Lactate dehydrogenase (LDH) 170 100 - 250 Units/L [facility] Comment:Testing performed by : [facility], [address] [place] [phone] Blood specimen (specimen) 04/30/2020 10:07 AM ACETYLENE CYLINDER PACKING MIXER 04/30/2020 10:19 AM ACETYLENE CYLINDER PACKING MIXER us Gautam Cope MD LAB BLOOD ORDERABLES Final Resul t Performing Organization Address City/[facility] Co de Phone Number [facility] [place] [address] * (ABNORMAL) Hemoglobin A1c (02/06/2020 8:58 AM CDT) Hgb A1C 9.0(H) 4.0 - 5.6 % [facility] Estimated Average Glucose 212 mg/dL [facility] Comment: The ADA recommends reporting an estimated Average Glucose (eAG) with all Hemoglobin A1c results using the equation derived from a study of 507 normal and diabetic adults. ??Minority populations were underrepresented and children were not included. ?? (Diabetes Care 31:7706-6617, 2008). ??The eAG is not equivalent to a fasting glucose. Blood specimen (specimen) 02/06/2020 8:58 AM CDT 02/06/2020 10:14 AM CDT us Gautam Cope MD LAB BLOOD ORDERABLES Final Resul t [facility] One [facility] Department [place] [address] documented in this encounter Visit Diagnoses Diagnosis Prostate cancer (HCC)- Primary Malignant neoplasm of prostate Need for prophylactic vaccination and inoculation against influenza documented in this encounter Historical Medications * This list may reflect changes made after this encounter. predniSONE (DELTASONE) 5 mg tablet 5 mg 2 (two) times a day 01/18/2020 10/25/2020 added in this encounter Orders Immunization/Injection Count Last Ordered Date First Ordered Date FLU VACCINE MDCK QUAD PF 4Y+ IM - FLUCELVAX 1 02/06/2020 Appointment Requests Count Last Ordered Date Fi rst Ordered Date ONCBCN CLINIC APPOINTMENT REQUEST 2 021 02/06/2020 ONCBCN INJECTION APPOINTMENT REQUEST 1 04/12 ONCBCN LAB APPOINTMENT 1 04/30/2020 documented in this encounter Care Teams Gore Seamer Relationship Specialty Start Date End Date Kraig Ching MD [address] [facility] [address] [place] [address] PCP - General 07/10/16 Gautam Cope MD [address] [facility] [address] [place] [address] Medical Oncologist/Carcass Splitter Medical Oncology 08/18/18 Tramaine Roe MD [address] [facility] [address] [place] [address] Referring Physician Urology 08/18/18 Sukhwinder Uribe MD [address] [facility] [address] [place] [address] Consulting Physician Urology 08/18/18 Shay Guillermo MD [address] [facility] [address] [place] [address] Referring Physician Urology 08/18/18 Marsha Landis, RN Registered Nurse 11/17/18 documented as of this encounter
--- OUTSIDE RECORDS SUMMARY | 2024-03-31 05:00 | XMS_ITS | Encounter Summary ---
Author Organization [facility] Address [address] [place] [address] Care Team Providers Care International Relations Teacher Name Role Phone Kraig Ching MD Primary Care Provider [phone] Gautam Cope MD Unavailable Tramaine Roe MD Unavailable [phone] Sukhwinder Uribe MD Unavailable [phone] Shay Guillermo MD Unavailable Marsha Landis RN Unavailable Unavailab Ilene Kaur RN Unavailable [phone] Encounter Details Date Type Department Care Team (Late st Contact Info) Description 10/10/2019 11:15 AM CDT Telemedicine [facility] [address] [facility] [place] [address] Kraig Ching MD [address] [facility] [address] [place] [address] Type 2 diabetes mellitus with stage 3 chronic kidney disease, without long-term current use of insulin (CMS/HCC) (Primary Dx); Hypertensive kidney disease with chronic kidney disease stage III (CMS/HCC); Therapeutic drug monitoring; Hyperlipidemia, unspecified hyperlipidemia type Social History Tobacco [...] on file Legal Sex 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 1 pen 11 10/10/2019 1 documented in this encounter Progress Notes * Kraig Ching MD - 10/10/2019 11:15 AM CDT Images from the original note were not included. Subjective/Objective Patient ID: David Wei is a 78 y.o. male. Chief Complaint Diabetes HPI: This was a telemedicine visit with David Wei which took place via Zoom. During the visit, I was located in my office and the patient was located at home. The patient visit started at 11;15 and ended at 11;33. The visit was 18 minutes. The patient has been informed that [...] applicable copayments. Kraig Ching MD 1.D.M. He is prescribed Basaglar,Januvia and metformin. A recent HgBA1C was 11 on 08/22/19. He is started Basaglar Insulin and his average morning sugar is 147. Diabetes is complicated by CKD. He follows with Nephrology. 2.HTN. He is prescribed lisinopril, chorthalidone, amlodipine and diltiazem for hypertension. His blood pressure averages 150 in the morning. Hypertension is complicated by CKD. He follows with Nephrology. 3.hyperlipidemia. He is prescribed pravastatin. Past Medical History: Diagnosis Date ??? A-fib [...] file Gets together: Not on file Attends yarsani service: Not on file Active member of [...] History Narrative ??? Not on file Problem Hypertensive Kidney Disease With Chronic Kidney Disease Stage III ([facility]) Type 2 Diabetes Mellitus With Stage 3 Chronic Kidney Disease, Without Long-Term Current Use of Insulin ([facility]) Description: YEAR OF ONSET: 1989 Hyperlipidemia Current Outpatient Medications on File Prior to Visit Medication Sig Dispense Refill ??? abiraterone (ZYTIGA) 250 mg tablet Take 4 tablets (1,000 mg total) by mouth daily Do not eat anything for at least 2 hours before and for at least 1 hour after 120 tablet 11 ??? ACCU-CHEK FASTCLIX LANCET DRUM misc TEST BLOOD SUGAR BID 1 ??? albuterol HFA (Ventolin HFA) 90 mcg/actuation inhaler Inhale 2 puffs every 4 (four) hours as needed for wheezing or shortness of breath 8 g 5 ??? aspirin 81 mg tablet Take 1 tablet (81 mg total) by mouth daily. 30 tablet 11 ??? BD Ultra-Fine Short Pen Needle 31 gauge x 5/16 needle USE DIRECTED TO INJECT INSULIN ONCE DAILY 100 each 0 ??? blood glucose diagnostic strip ??? chlorthalidone 25 mg tablet Take 1 [...] BY MOUTH DAILY 90 tablet 1 ??? TRAVATAN Z 0.004 % drops INT 1 DROP INTO OU QHS 5 ??? [DISCONTINUED] Basaglar KwikPen U-100 Insulin 100 unit/mL (3 mL) insulin pen INJECT 10 UNITS UNDER THE SKIN DAILY UTD. (Patient taking differently: Inject 12 Units under the skin Reports changed to UNITS UNDER THE SKIN DAILY UTD.) 3 mL 11 ??? [DISCONTINUED] Basaglar KwikPen U-100 Insulin 100 unit/mL (3 mL) insulin pen INJECT 10 UNITS UNDER THE SKIN DAILY DIRECTED 3 mL 5 ??? [DISCONTINUED] diltiaZEM (CARDIZEM) 120 mg tablet TAKE 1 TABLET BY MOUTH DAILY 90 tablet 3 ??? [DISCONTINUED] predniSONE (DELTASONE) 5 mg tablet Take 1 tablet (5 mg) by mouth 2 (two) times aday 60 tablet 11 No current facility-administered medications on file prior to visit. Review of Systems: Review of Systems Constitutional: Negative. HENT: Negative for sore throat. Eyes: Negative for visual disturbance. Respiratory: Negative for shortness of breath. Cardiovascular: Negative for chest pain. Gastrointestinal: Negative for abdominal pain. Genitourinary: Negative for hematuria. Musculoskeletal: Positive for back pain. Negative for arthralgias. Skin: Negative for rash. Neurological: Negative for dizziness. Physical Exam: There were no vitals taken for this visit. Assessment/Plan Diagnoses and all orders for this visit: Type 2 diabetes mellitus with stage 3 chronic kidney disease, without long-term current use of insulin ([facility]) (Primary) Assessment & Plan: Reviewed HgbA1c 11 on 08/22/19. Increase Insulin to 14 units. Refer to Endocrinology. Orders: - Ambulatory referral to Endocrinology; Future - Hemoglobin A1c; Future Hypertensive kidney disease with chronic kidney disease stage III ([facility]) Assessment & Plan: Blood pressure is elevated. Change diltiazem to carvedilol. Follow with renal for CKD. Avoid NSAIDS. Orders: - carvediloL (COREG) 6.25 mg tablet; Take 1 tablet (6.25 mg total) by mouth 2 (two) times a day with meals Therapeutic drug monitoring - Comprehensive metabolic panel; Future Hyperlipidemia, unspecified hyperlipidemia type Assessment & Plan: Continue pravastatin order lipid panel. Orders: - Lipid panel; Future Other orders - Basaglar KwikPen U-100 Insulin 100 unit/mL (3 mL) insulin pen; Inject 14 Units under the skin daily Reports changed to [id number] UNITS UNDER THE SKIN DAILY UTD. Kraig Ching MD documented in this encounter Miscellaneous Notes * Assessment & Plan Note - Kraig Ching MD - 10/10/2019 11:34 AM CDT Associated Problem(s): Hyperlipidemia Continue pravastatin order lipid panel. * Assessment & Plan Note - Kraig Ching MD - 10/10/2019 7:24 AM CDT Associated Problem(s): Type 2 diabetes mellitus without complication, with long-term current use ofinsulin ([facility]) (HCC) (Resolved 10/02/2023) Reviewed HgbA1c 11 on 08/22/19. Increase Insulin to 14 units. Refer to Endocrinology. * Assessment & Plan Note - Kraig Ching MD - 10/10/2019 7:24 AM CDT Associated Problem(s): Hypertensive kidney disease with chronic kidney disease stage III (HCC) Blood pressure is elevated. Change diltiazem to carvedilol. Follow with renal for CKD. Avoid NSAIDS. documented in this encounter Plan [...] to monitor diabetes and kidney status, etc. [facility] Chronic Pain Care Plan Chronic Care Management No change(03/23 1:47 PM SUPPORT SERVICES TECH) No Ingrid Oden, RN Note: Problem: Chronic Pain Goals: 1. Minimize further functional decline 2. Maximize quality of life 3. Control pain Strategies: - Activity/exercise program recommendation - Conservative stepwise pain medicine strategy with multi-disciplinary approach - Recommend healthy lifestyle strategies and compensatory methods as needed documented as of this encounter Procedures Procedure Name Priority Date/Time Associated Diagnosis Comments HEMOGLOBIN A1C Routine 12/07/2019 9:19 AM CDT Type 2 diabetes mellitus with stage 3 chronic kidney disease, without long-term current use of insulin ([facility]) LIPID PANEL Routine 12/07/2019 9:19 AM CDT Hyperlipidemia, unspecified hyperlipidemia type COMPREHENSIVE METABOLIC PANEL Routine 12/07/2019 9:19 AM CDT Therapeutic drug monitoring documented in this encounter Results * (ABNORMAL) Lipid panel (12/07/2019 9:19 AM CDT) Cholesterol 224(H) <200 mg/dL [facility] HDL 37(L) > OR = 40 mg/dL [facility] Triglycerides 296(H) <150 mg/dL [facility] Comment: If a non-fasting specimen was collected, consider repeat triglyceride testing on a fasting specimen if clinically indicated. Soco et al. J. of Clin. Lipidol. 2015;9:129-169. LDL 145(H) mg/dL (calc) [facility] Comment: Reference range: <100 Desirable range <100 mg/dL for primary prevention; ?? <70 mg/dL for patients with CHD or diabetic patients with > or = 2 CHD risk factors. LDL-C is now calculated using the Héctor-Costa calculation, which is a validated novel method providing better accuracy than the Friedewald equation in the estimation of LDL-C. Héctor SS et al. LISA. 2013;310(19): 5996-6355 (http://education.[employer]/faq/FOX961) Chol/HDL ratio 6.1(H) <5.0 (calc) [facility] Non-HDL, (LDL+VLDL) 187(H) <130 mg/dL (calc) [facility] Comment: For patients with diabetes plus 1 major ASCVD risk factor, treating to a non-HDL-C goal of <100 mg/dL (LDL-C of <70 mg/dL) is considered a therapeutic option. Blood specimen (specimen) 12/07/2019 9:19 AM CDT 12/07/2019 9:19 AM CDT Narrative [facility] - 12/08/2019 5:19 AM CDT FASTING:YES FASTING: YES Kraig Ching MD LAB BLOOD ORDERABLES Final Re sult Performing Organization Address [facility] Co de Phone Number [facility] [address] [place] [address] * (ABNORMAL) Hemoglobin A1c (12/07/2019 9:19 AM CDT) Hgb A1C 9.1(H) <5.7 % of total Hgb [facility] Comment: For someone without known diabetes, a hemoglobin A1c value of 6.5% or greater indicates that they may have diabetes and this should be confirmed with a follow-up test. For someone with known diabetes, a value <7% indicates that their diabetes is well controlled and a value greater than or equal to 7% indicates suboptimal control. A1c targets should be individualized based on duration of diabetes, age, comorbid conditions, and other considerations. Currently, no consensus exists regarding use of hemoglobin A1c for diagnosis of diabetes for children. ?? Blood specimen (specimen) 12/07/2019 9:19 AM CDT 12/07/2019 9:19 AM CDT Narrative [facility] - 12/08/2019 5:19 AM CDT FASTING:YES FASTING: YES Kraig Ching MD LAB BLOOD ORDERABLES [facility] Performing Organization Address [facility] Co de Phone Number [facility] [address] [place] [address] * (ABNORMAL) Comprehensive metabolic panel (12/07/2019 9:19 AM CDT) Glucose 112(H) 65 - 99 mg/dL [facility] Comment: ? Fasting reference interval For someone without known diabetes, a glucose value between 100 and 125 mg/dL is consistent with prediabetes and should be confirmed with a follow-up test. BUN 28(H) 7 - 25 mg/dL [facility] Creatinine 1.65(H) 0.70 - 1.18 mg/dL [facility] Comment: For patients >49 years of age, the reference limit for Creatinine is approximately 13% higher for people identified as -[place]wand[place]. eGFR NON-AFR. SCOTTISH 39(L) > OR = 60 mL/min/1. 73m2 [facility] EGFR 45(L) > OR = 60 mL/min/1. 73m2 [facility] BUN/creat ratio 17 6 - 22 (calc) [facility] Sodium 138 135 - 146 mmol/L [facility] Potassium, pl 4.2 3.5 - 5.3 mmol/L [facility] Chloride 101 98 - 110 mmol/L [facility] CO2 30 20 - 32 mmol/L [facility] Calcium 9.2 8.6 - 10.3 mg/dL [facility] Protein, sr 6.1 6.1 - 8.1 g/dL [facility] Albumin 4.0 3.6 - 5.1 g/dL [facility] GLOBULIN 2.1 1.9 - 3.7 g/dL (calc) [facility] Alb/glob ratio 1.9 1.0 - 2.5 (calc) [facility] Bilirubin, total 0.5 0.2 - 1.2 mg/dL [facility] Alk phos 94 35 - 144 U/L [facility] AST 12 10 - 35 U/L [facility] ALT (SGPT) 10 9 - 46 U/L [facility] Blood specimen (specimen) 12/07/2019 9:19 AM CDT 12/07/2019 9:19 AM CDT Narrative [facility] - 12/08/2019 5:19 AM CDT FASTING:YES FASTING: YES us Kraig Ching MD LAB BLOOD ORDERABLES Final Re sult ROSIO [facility] [address] [place] [address] documented in this encounter Visit Diagnoses Diagnosis Type 2 diabetes mellitus with stage 3 chronic kidney disease, without long-term current use of insulin (HCC)- Primary Hypertensive kidney disease with chronic kidney disease stage III (HCC) Unspecified hypertensive kidney disease with chronic kidney disease stage I through stage IV, or unspecified Therapeutic drug monitoring Encounter for therapeutic drug monitoring Hyperlipidemia, unspecified hyperlipidemia type documented in this encounter Discontinued Medications Medication Sig Discontinue Reason Start Date End Da te predniSONE (DELTASONE) 5 mg tabletIndications:Adrenal Cortical Insufficiency Take 1 tablet (5 mg) by mouth 2 (two) times a day Therapy completed 10/20/2018 10/10/2019 Basaglar KwikPen U-100 Insulin 100 unit/mL (3 mL) insulin penIndications:Type 2 diabetes mellitus with stage 3 chronic kidney disease, without long-term current use of insulin (HCC) INJECT 10 UNITS UNDER THE SKIN DAILY DIRECTED Alternate therapy 07/28/2019 10/10/2019 Basaglar KwikPen U-100 Insulin 100 unit/mL (3 mL) insulin pen INJECT 10 UNITS UNDER THE SKIN DAILY UTD. Duplicate order 06/09/2019 10/10/2019 diltiaZEM (CARDIZEM) 120 mg tablet TAKE 1 TABLET BY MOUTH DAILY Therapy completed 12/06/2018 10/10/2019 documented as of this encounter Care Teams International Relations Teacher Relationship Specialty Start Date End Date Kraig Ching MD [address] [facility] [address] [place] [address] PCP - General 07/10/16 Gautam Cope MD [address] [facility] [address] [place] [address] Medical Oncologist/Hazard Mitigation Officer Medical Oncology 08/18/18 Tramaien Roe MD [address] [facility] [address] [place] [address] Referring Physician Urology 08/18/18 Sukhwinder Uribe MD [address] [facility] [address] [place] [address] Consulting Physician Urology 08/18/18 [place] [address] [place] [address] [address] [place] [address] Referring Physician Urology 08/18/18 Marsha Landis, RN Registered Nurse 11/17/18 Ilene Fragoso, RN [address] [place] [address] School Boat Driver 12/23/18 11/01/19 documented as of this encounter
--- OUTSIDE RECORDS SUMMARY | 2024-03-31 05:00 | XMS_ITS | Encounter Summary ---
Author Organization [facility] Address [address] [place] [address] Care Team Providers Care Clerical Manager Name Role Phone Kraig Ching MD Primary Care Provider [phone] Gautam Cope MD Unavailable Tramaine Roe MD Unavailable [phone] Suhkwinder Uribe MD Unavailable Shay Guillermo MD Unavailable [phone] Marsha Landis RN Unavailable Unavailab Ilene Kaur RN Unavailable [phone] Reason for Referral * MRI/CAT/PET Scan (Routine) - Closed Specialty Diagnoses / Procedures [facility] To Contact Radiology Diagnoses Prostate cancer (HCC) Procedures CT chest abdomen pelvis without contrast Gautam Cope MD [address] [facility] [address] [place] [address] Phone: tel: fax: [facility] [address] [place] [address] Referral ID Status Reason Start Date Expiration Date Visits Re quested Visits Authorized [id number] Closed 08/09/2019 02/17/2021 1 1 Reason for Visit * MRI/CAT/PET Scan (Routine) - Closed Specialty Diagnoses / Procedures [facility] Referred To Contact Radiology Diagnoses Prostate cancer (HCC) Procedures CT chest abdomen pelvis without contrast Gautam Cope MD [address] [facility] [address] [place] [address] Phone: tel: fax: [facility] [address] 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 Gender Identity Not on file Sexual Orientation [...] Chronic obstructive pulmonary disease, unspecified COPD type ([facility]) Inhale 2 puffs every 4 (four) hours [...] without long-term current use of insulin ([facility]) INJECT 10 UNITS UNDER THE SKIN DAILY [...] Care Management No change(03/23 1:47 PM SALES AND MARKETING PROFESSIONAL) No Ingrid Oden, RN Note: Problem: Chronic [...] CONTRAST Schedule Routine, Read Routine (OP Routine) 08/15/2019 10:04 AM CDT Prostate cancer (CMS/HCC) documented in this encounter Results * CT [...] prostate documented in this encounter Care Teams Clerical Manager Relationship Specialty Start Date End Date Kraig Ching MD [address] [place] [address] PCP - General 07/10/16 Gautam Cope MD [address] [place] [address] Medical Oncologist/Multiple Needle Stitcher Medical Oncology 08/18/18 Tramaine Roe MD [address] [place] [address] Referring Physician Urology 08/18/18 Sukhwinder Uribe MD [address] [place] [address] Consulting Physician Urology 08/18/18 Shay Guillermo MD [address] [place] [address] Referring Physician Urology 08/18/18 Marsha Landis, RN Registered Nurse 11/17/18 Ilene Fragoso, SHEA [address] [facility] [address] [place] [address] Scrum Coach 12/23/18 11/01/19 documented as of this encounter
--- OUTSIDE RECORDS SUMMARY | 2024-03-31 05:00 | XMS_ITS | Encounter Summary ---
Author Organization [facility] Address [address] [place] [address] Phone Care Team Providers Care Conversion Man Name Role Phone Kraig Ching MD Primary Care Provider [phone] Gautam Cope MD Unavailable Tramaine Roe MD Unavailable [phone] Sukhwinder Uribe MD Unavailable [phone] Shay Guillermo MD Unavailable [phone] Marsha Landis RN Unavailable Unavailab Ilene Kaur RN Unavailable [phone] Encounter Details Date Type Department Care Team (Late st Contact Info) Description 08/25/2019 Telephone [facility] Nephrology [address] [facility] Advanced Medicine 5th [place] [address] [place] [address] Comfort Barrios RMA Social History [...] on file 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 Phone appt * Telephone Encounter - Wendy Brown MBA - 08/28/2019 9:14 AM CDT LMOR * Telephone Encounter - Wendy Brown MBA - 08/25/2019 12:37 PM CDT LMOR * Telephone Encounter - Comfort Barrios RMA - 08/25/2019 10:47 AM CDT Schedulers- Please assist in trying to move pt's Team Li appt for next Wed to the following 09/05 as a telehealth appt (video over phone if able, no more than 2 pts per slot but preferably one perslot.) MD cannot see him next week as appt slots are full right now. He read my [employer] msgs but has not responded. Let me know if you are able to reach him. Thx! documented in this encounter Plan of Treatment [...] diabetes and kidney status, etc. [facility] Chronic Pain Care Plan Chronic Care Management No change(03/23 1:47 PM SKEIN YARD DRIER) No Ingrid Oden, SHEA Note: Problem: Chronic Pain Goals: 1. Minimize further functional decline 2. Maximize quality of life 3. Control pain Strategies: - Activity/exercise program recommendation - Conservative stepwise pain medicine strategy with multi-disciplinary approach - Recommend healthy lifestyle strategies and compensatory methods as needed documented as of this encounter Visit Diagnoses Not on filedocumented in this encounter Care Teams Conversion Man Relationship Specialty Start Date End Date Kraig Ching MD [address] [facility] [address] [place] [address] PCP - General 07/10/16 Gautam Cope MD [address] [facility] [address] [place] [address] Medical Oncologist/Machine Burrer Medical Oncology 08/18/18 Tramaine Roe MD [address] [facility] [address] [place] [address] Referring Physician Urology 08/18/18 Sukhwinder Uribe MD [address] [facility] [address] [place] [address] Consulting Physician Urology 08/18/18 Shay Guillermo MD [address] [facility] [address] [place] [address] Referring Physician Urology 08/18/18 Marsha Landis, RN Registered Nurse 11/17/18 Ilene Fragoso, RN [address] [place] [address] [address] [place] [address] Maintenance And Operations Supervisor 12/23/18 11/01/19 documented as of this encounter
--- OUTSIDE RECORDS SUMMARY | 2024-03-31 05:01 | XMS_ITS | Encounter Summary ---
Author Organization [facility] Healthcare Address [address] [place] [address] Care Team Providers Care Lead Project Engineer Name Role Phone Kraig Ching MD Primary Care Provider [phone] Gautam Cope MD Unavailable Tramaine Roe MD Unavailable [phone] Sukhwinder Uribe MD Unavailable [phone] Shay Guillermo MD Unavailable [phone] Marsha Landis RN Unavailable Unavailab Ilene Kaur RN Unavailable [phone] Encounter Details Date Type Department Care Team (Late st Contact Info) Description 02/17/2019 3:10 PM CREDIT COLLECTION ASSOCIATE Lab [facility] [address] [place] [address] Lin Guerrero MD [address] [place] [address] [place] [id number] CRD (chronic renal disease), stage III (CMS/HCC); Essential hypertension Discharge Disposition: Discharge to home or self [...] on file Legal Sex Male 4:46 PM CREDIT COLLECTION ASSOCIATE Gender Identity Not on file Sexual Orientation Not on file documented as of this encounter Discharge Disposition [...] to monitor diabetes and kidney status, etc. [facility] Chronic Pain Care Plan Chronic Care Management No change(03/23 1:47 PM CREDIT COLLECTION ASSOCIATE) No Ingrid Oden, SHEA Note: Problem: Chronic Pain Goals: 1. Minimize further functional decline 2. Maximize quality of life 3. Control pain Strategies: - Activity/exercise program recommendation - Conservative stepwise pain medicine strategy with multi-disciplinary approach - Recommend healthy lifestyle strategies and compensatory methods as needed documented as of this encounter Procedures Procedure Name Priority Date/Time Associated Diagnosis Comments DIFFERENTIAL AUTO Routine 02/17/2019 3:0 7 PM CREDIT COLLECTION ASSOCIATE CRD (chronic renal disease), stage III (CMS/HCC) Essential hypertension CBC WITH AUTO DIFFERENTIAL Routine 02/17/2019 3:07 PM CREDIT COLLECTION ASSOCIATE CRD (chronic renal disease), stage III (CMS/HCC) Essential hypertension RENAL FUNCTION PANEL Routine 02/17/2019 3:07 PM CREDIT COLLECTION ASSOCIATE CRD (chronic renal disease), stage III (CMS/HCC) Essential hypertension documented in this encounter Results * (ABNORMAL) Differential, auto (02/17/2019 3:07 PM CREDIT COLLECTION ASSOCIATE) Neutrophil abs 8.6(H) 1.7 - 6.5 K/cumm [facility] Imm gran abs 0.1 0.0 - 0.1 K/cumm [facility] Lymphocyte abs 1.5 0.8 - 3.3 K/cumm [facility] Monocyte abs 0.9(H) 0.2 - 0.8 K/cumm [facility] Eosinophil abs 0.1 0.0 - 0.5 K/cumm [facility] Basophil abs 0.0 0.0 - 0.1 K/cumm [facility] Neutrophil pct 76.7 % [facility] Comment: Interpretive Data Percent cell count reference ranges are not reported, since discordance with absolute values may lead to misinterpretation of CBC data. Current Interpretive Data was last revised on 2017. Imm gran pct 1.0 % [facility] Comment: Interpretive Data Percent cell count reference ranges are not reported, since discordance with absolute values may lead to misinterpretation of CBC data. Current Interpretive Data was last revised on 2017. Lymphocyte pct 13.2 % [facility] Comment: Interpretive Data Percent cell count reference ranges are not reported, since discordance with absolute values may lead to misinterpretation of CBC data. Current Interpretive Data was last revised on 2017. Monocyte pct 7.9 % [facility] Comment: Interpretive Data Percent cell count reference ranges are not reported, since discordance with absolute values may lead to misinterpretation of CBC data. Current Interpretive Data was last revised on 2017. Eosinophil pct 0.8 % [facility] Comment: Interpretive Data Percent cell count reference ranges are not reported, since discordance with absolute values may lead to misinterpretation of CBC data. Current Interpretive Data was last revised on 2017. Basophil pct 0.4 % [facility] Comment: Interpretive Data Percent cell count reference ranges are not reported, since discordance with absolute values may lead to misinterpretation of CBC data. Current Interpretive Data was last revised on 2017. Blood specimen (specimen) 02/17/2019 3:07 PM CREDIT COLLECTION ASSOCIATE 02/17/2019 3:16 PM CREDIT COLLECTION ASSOCIATE us Lin Guerrero MD LAB BLOOD ORDERABLES Final Resul t [facility] Department [place] [address] * (ABNORMAL) Renal function panel (02/17/2019 3:07 PM CREDIT COLLECTION ASSOCIATE) Sodium 141 135 - 145 mmol/L [facility] Potassium, pl 4.7 3.3 - 4.9 mmol/L [facility] Chloride 103 97 - 110 mmol/L [facility] CO2 28 22 - 32 mmol/L [facility] Anion gap 10 2 - 15 mmol/L [facility] BUN 34(H) 8 - 25 mg/dL [facility] Creatinine 1.99(H) 0.80 - 1.30 mg/dL [facility] Glucose 202(H) 70 - 199 mg/dL [facility] Comment: Interpretive Data Fasting glucose >/= [...] interpretive data was last revised 2017. Calcium 9.1 8.5 - 10.3 mg/dL [facility] Phosphorus, pl 3.1 2.3 - 4.5 mg/dL [facility] Albumin 4.1 3.5 - 5.0 g/dL [facility] Blood specimen (specimen) 02/17/2019 3:07 PM CREDIT COLLECTION ASSOCIATE 02/17/2019 3:16 PM CREDIT COLLECTION ASSOCIATE Lin Guerrero MD LAB BLOOD ORDERABLES Final Resul t Performing Organization Address [facility] de Phone Number [facility] Department [place] [address] * (ABNORMAL) CBC with auto differential (02/17/2019 3:07 PM CREDIT COLLECTION ASSOCIATE) WBC 11.2(H) 3.8 - 9.9 K/cumm [facility] Hgb 12.0(L) 13.0 - 17.5 g/dL [facility] Hct 36.7(L) 38.9 - 50.3 % [facility] Plt 338 150 - 400 K/cumm [facility] MPV 9.6 9.1 - 12.3 fL [facility] RBC 4.00(L) 4.30 - 5.80 M/cumm [facility] MCV 91.8 81.3 - 96.4 fL [facility] MCH 30.0 27.1 - 33.3 pg [facility] MCHC 32.7 32.3 - 35.7 g/dL [facility] RDW CV 13.9 11.1 - 14.9 % [facility] RDW SD 46.9 35.7 - 48.1 fL [facility] NRBC abs 0.00 0.00 - 0.01 K/cumm [facility] Blood specimen (specimen) 02/17/2019 3:07 PM CREDIT COLLECTION ASSOCIATE 02/17/2019 3:16 PM CREDIT COLLECTION ASSOCIATE Lin Guerrero MD LAB BLOOD ORDERABLES Final Resul t [facility] Department [place] [address] documented in this encounter Visit Diagnoses Diagnosis CRD (chronic renal disease), stage III (HCC) Chronic kidney disease, Stage III (moderate) Essential hypertension Unspecified essential hypertension documented in this encounter Care Teams Lead Project Engineer Relationship Specialty Start Date End Date Kraig Ching MD [address] [place] [address] PCP - General 07/10/16 Gautam Cope MD [address] [place] [address] Medical Oncologist/[employer] Medical Oncology 08/18/18 Tramaine Roe MD [address] [place] [address] Referring Physician Urology 08/18/18 Sukhwinder Uribe MD [address] [place] [address] Consulting Physician Urology 08/18/18 Shay Guillermo MD [address] [place] [address] Referring Physician Urology 08/18/18 Marsha Landis, RN Registered Nurse 11/17/18 Ilene Fragoso, RN [address] [facility] [address] [place] [address] Ski Maker 12/23/18 11/01/19 documented as of this encounter
--- OUTSIDE RECORDS SUMMARY | 2024-03-31 05:01 | XMS_ITS | Encounter Summary ---
Author Organization [facility] Healthcare Address [address] [place] [address] Care Team Providers Care Dipper Clock And Watch Hands Name Role Phone Kraig Ching MD Primary Care Provider [phone] Gautam Cope MD Unavailable Tramaine Roe MD Unavailable [phone] Sukhwinder Uribe MD Unavailable [phone] Shay Guillermo MD Unavailable Marsha Landis RN Unavailable Unavailab Ilene Kaur RN Unavailable [phone] Reason for Visit * Reason Comments Back Pain Low. Encounter Details Date Type Department Care Team (Latest Contact Info) Description 01/17/2019 1:57 PM CDT - 01/17/2019 11:59 PM CDT Hospital Encounter [facility] [place] [facility] [address] [facility] [address] [place] [address] Maru Arreola MD PhD [address] [facility] [phone] [place], [place] [id number] Spinal stenosis of lumbar region with neurogenic claudication (Primary Dx); Sciatica, left side; Chronic bilateral low back pain with bilateral [...] on file Legal Sex Male 4:46 PM 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 Gender Identity Not on file Sexual Orientation Not on file documented as of this encounter Last Filed Vital Signs Vital Sign Reading Time Taken Comments Blood Pressure 146/73 01/17/2019 3:52 PM CDT Pulse 70 01/17/2019 3:52 PM CDT Temperature 36.9 ??C (98.5 ??F) 01/17/2019 2:28 PM CD T Respiratory Rate 18 01/17/2019 3:52 PM CDT Oxygen Saturation 97% 01/17/2019 3:52 PM CDT Inhaled Oxygen Concentration - - Weight 99.8 kg (220 lb) 01/17/2019 2:28 PM CDT Height 179.1 cm (5' 10.5 ) 01/17/2019 2:28 PM CD T Body Mass Index 31.12 01/17/2019 2:28 PM CDT documented in this encounter Discharge Instructions * Discharge Instructions* Jayla Gibson, RN - 01/17/2019 3:03 PM CDT [facility] DISCHARGE INSTRUCTIONS MEDICATIONS: [x] Continue your current home medications Start: [x] Notify your pharmacy for refill(s) 7 days before you are out of your medication. [] Opioid (Narcotic) Agreement signed and patient received copy. [] Side Effects of Opioid Medications given to patient Resume blood thinner: On Discontinue: PROCEDURE at today's visit: Lumbar Selective Nerve Root Injcetion DIET: [x] Resume normal diet [] See [facility] Post Discharge Procedure Information Sheet ACTIVITY: [] Resume normal activity [x] See [facility] Post Discharge Procedure Information Sheet REFERRALS: Physical Therapy [] [facility] Physical Therapy ([phone]) [] [facility] (Graded [employer] Imag[employer]) [] [facility] ([phone]) [] [facility] (Graded Motor Imagery) [x] Other:At outside facility Behavior Medicine [] Pain Psychologist, [facility] Pain Psychology Please call to schedule appointment [phone] or [phone] Diagnostic Test(s): EDUCATION provided on the following: [] Spinal Cord Stimulator Education and DVD. Vendor: FOLLOW UP APPOINTMENTS: [] Return as needed [x] Follow up appointment: 3 months for same procedure We will contact you the next business day to obtain: [] An update on your condition [] Your Pain diary scores [] Procedure at your next visit : INSTRUCTIONS before your next procedure: [] See [facility] Pre-Procedure Information Sheet [] Do not eat or drink for six (6) hours before the time/date of the procedure. [] Inquire with your prescribing provider if ok to hold blood thinner for days before procedure. [] Blood work required 2 hours before procedure: [x] Material Loader needed for next procedure Patient provided information and repeated back with understanding. If you need to reach us: For any questions about your procedure, please call the Pain Management Center [phone] (M-F) (8am-4pm) If you need urgent attention after 5 pm and weekends: Call the [facility] Supervisor Heat Treating at [phone] and ask for the Pain Service doctor regional maintenance manager. documented in this encounter Medications at Time of Discharge abiraterone (ZYTIGA) 250 mg tabletIndications:p rostate cancer Take 4 tablets (1,000 mg total) by mouth daily Do not eat anything for at least 2 hours before and for at least 1 hour after 120 tablet 11 10/20/2018 0 ACCU-CHEK FASTCLIX LANCET DRUM misc TEST BLOOD SUGAR BID 1 08/29/2018 0 aspirin 81 mg tablet Take 1 tablet (81 mg total) by mouth daily. 30 tablet 11 03/07/2018 3 BASAGLAR KWIKPEN U-100 INSULIN 100 unit/mL (3 mL) insulin pen INJECT 10 UNITS UNDER THE SKIN DAILY UTD 11/15/2018 0 BD ULTRA-FINE SHORT PEN NEEDLE 31 gauge x 5/16 needle USE TO INJECT INSULIN ONCE DIALY 1 08/29/2018 9 blood glucose diagnostic strip 11/10/19 2 3 chlorthalidone 25 mg tablet Take 1/2 tablet daily (12.5 mg) 15 tablet 08/24/2018 0 diltiaZEM (CARDIZEM) 120 mg tablet TAKE 1 TABLET BY MOUTH DAILY 90 tablet 3 12/06/2018 0 gabapentin (NEURONTIN) 100 mg capsuleIndications: Neuropathic Pain Take 1 capsule (100 mg total) by mouth nightly 30 capsule 09/15/2018 0 gabapentin (NEURONTIN) 100 mg capsule Take 2 capsules (200 mg total) by mouth nightly 60 capsule 2 11/17/2018 0 insulin glargine (LANTUS U-100 INSULIN) 100 unit/mL injectionIndication s:Type 2 diabetes mellitus with stage 3 chronic kidney disease, without long-term current use of insulin (HCC) Injected daily as directed. 10 mL 11 08/29/2018 0 JANUVIA 25 mg tabletIndications:T ype 2 diabetes mellitus with stage 3 chronic kidney disease, without long-term current use of insulin (HCC) TAKE 1 TABLET BY MOUTH DAILY 30 tablet 11 01/06/2019 0 lisinopril (PRINIVIL,ZESTRIL) 20 mg tabletIndications:E ssential hypertension Take 1 tablet (20 mg total) by mouth daily 30 tablet 5 01/17/2019 0 metFORMIN (GLUCOPHAGE) 500 mg tablet TAKE 1 TABLET(500 MG) BY MOUTH TWICE DAILY WITH MEALS 60 tablet 3 10/24/2018 9 ONETOUCH ULTRA BLUE TEST STRIP strip TEST SUGAR TWICE DAILY 100 each 3 09/20/[address] (PROTONIX) 40 mg EC tablet TAKE 1 TABLET(40 MG) BY MOUTH DAILY 30 tablet 5 12/05/2018 0 pravastatin (PRAVACHOL) 20 mg tablet TAKE 1 TABLET(20 MG) BY MOUTH DAILY 30 tablet 01/06/2019 9 predniSONE (DELTASONE) 5 mg tabletIndications:A drenal Cortical [...] Notes * Maru Arreola MD PhD - 01/17/2019 2:30 PM CDT Patient Name: David Wei : 1940 Today's Date: 01/17/2019 PCP: Kraig Ching MD Referring: Maru Arreola MD PhD Chief Complaint Patient presents with ??? Back Pain Low. HPI HISTORICAL INFO: Mr. David Wei is [...] L4/5??(good relief) 01/17/19: LSNR bilateral L4/5 - INTERVAL HISTORY (01/17/2019): Mr. David Wei returns to care for persistent low back pain. He reports no new numbness, weakness, bowel/bladder incontinence. He is s/p gabapentin increase to 200mg QPM and magnesium for cramping, but he does not take the gabapentin every day. He denies any side effects to current pain medications. At his last visit, his pain remained well-controlled so he did not have a procedure. The pain began to return approximately 2 weeks ago. Currently, his pain is occasional and described as aching. He rates his pain at 6/10 on average. The pain increases with standing in one place or walking too far and decreases with resting (sitting, lying). It is worst in the afternoon. His ADLs are difficult, but manageable on his own. Current Pain meds: Pain Medications gabapentin (NEURONTIN) 100 mg capsule Take 2 capsules (200 mg total) by mouth nightly predniSONE (DELTASONE) 5 mg tablet Take 1 tablet (5 mg) by mouth 2 (two) times a day gabapentin (NEURONTIN) 100 mg capsule Take 1 capsule (100 mg total) by mouth nightly Review of Systems Review of Systems Constitutional: Negative for chills and fever. Respiratory: Negative for shortness of breath. Cardiovascular: Negative for chest pain. Gastrointestinal: Negative for nausea and vomiting. Musculoskeletal: Positive for back pain. Skin: Negative for rash. Neurological: Negative for weakness. Endo/Heme/Allergies: Does not bruise/bleed easily. Psychiatric/Behavioral: Negative for depression. The patient is not nervous/anxious. Patient's Medications New Prescriptions No medications on file Previous Medications ABIRATERONE (ZYTIGA) 250 MG TABLET Take 4 tablets (1,000 mg total) by mouth daily Do not eat anything for at least 2 hours before and for at least 1 hour after Authorizing Provider: Gautam Cope MD Notes: Patient states $50 is ok with him, but he cannot pick this up thil October 28. He'll get Prednisone that day too. ACCU-CHEK FASTCLIX LANCET DRUM MISC TEST BLOOD SUGAR BID Authorizing Provider: Coleen Salas MD Notes: -- ASPIRIN 81 MG TABLET Take 1 tablet (81 mg total) by mouth daily. Authorizing Provider: Kraig Ching MD Notes: -- BASAGLAR KWIKPEN U-100 INSULIN 100 UNIT/ML (3 ML) INSULIN PEN INJECT 10 UNITS UNDER THE SKIN DAILY UTD Authorizing Provider: Coleen Salas MD Notes: -- BD ULTRA-FINE SHORT PEN NEEDLE 31 GAUGE X 5/16 NEEDLE USE TO INJECT INSULIN ONCE DIALY Authorizing Provider: Coleen Salas MD Notes: -- BLOOD GLUCOSE DIAGNOSTIC STRIP Authorizing Provider: Coleen Salas MD Notes: -- CHLORTHALIDONE 25 MG TABLET Take 1/2 tablet daily (12.5 mg) Authorizing Provider: Conchis Chapin MD Notes: -- DILTIAZEM (CARDIZEM) 120 MG TABLET TAKE 1 TABLET BY MOUTH DAILY Authorizing Provider: Kraig Ching MD Notes: -- GABAPENTIN (NEURONTIN) 100 MG CAPSULE Take 1 capsule (100 mg total) by mouth nightly Authorizing Provider: Janes Ramirez MD Notes: -- GABAPENTIN (NEURONTIN) 100 MG CAPSULE Take 2 capsules (200 mg total) by mouth nightly Authorizing Provider: Joseph Núñez MD Notes: -- INSULIN GLARGINE (LANTUS U-100 INSULIN) 100 UNIT/ML INJECTION Injected daily as directed. Authorizing Provider: SIERRA Landry Notes: -- JANUVIA 25 MG TABLET TAKE 1 TABLET BY MOUTH DAILY Authorizing Provider: Kraig Ching MD Notes: -- LISINOPRIL (PRINIVIL,ZESTRIL) 20 MG TABLET Take 1 tablet (20 mg total) by mouth daily Authorizing Provider: SIERRA Landry Notes: -- METFORMIN (GLUCOPHAGE) 500 MG TABLET TAKE 1 TABLET(500 MG) BY MOUTH TWICE DAILY WITH MEALS Authorizing Provider: Kraig Ching MD Notes: -- ONETOUCH ULTRA BLUE TEST STRIP STRIP TEST SUGAR TWICE DAILY Authorizing Provider: Kraig Ching MD Notes: -- PANTOPRAZOLE DR (PROTONIX) 40 MG EC TABLET TAKE 1 TABLET(40 MG) BY MOUTH DAILY Authorizing Provider: Kraig Ching MD Notes: -- PRAVASTATIN (PRAVACHOL) 20 MG TABLET TAKE 1 TABLET(20 MG) BY MOUTH DAILY Authorizing Provider: Kraig Ching MD Notes: -- PREDNISONE (DELTASONE) 5 MG TABLET Take 1 tablet (5 mg) by mouth 2 (two) times a day Authorizing Provider: Gautam Cope MD Notes: -- TRAVATAN Z 0.004 % DROPS INT 1 DROP INTO OU QHS Authorizing Provider: Coleen Provider, Notes: -- Modified Medications No medications on file Discontinued Medications No medications on file No Known Allergies Lab Results Component Value Date WBC 11.1 (H) 12/06/2018 HGB 11.9 (L) 12/06/2018 HCT 35.7 (L) 12/06/2018 MCV 86.3 12/06/2018 LABPLAT 380 12/06/2018 Physical Exam: Vitals: 01/17/19 1428 01/17/19 1510 01/17/19 1522 01/17/19 1530 BP: 145/67 142/72 139/79 155/74 Pulse: 73 68 73 71 Resp: 18 17 18 16 Temp: 98.5 ??F (36.9 ??C) SpO2: 96% 94% 94% Weight: 99.8 kg (220 lb) Height: 179.1 cm (5' 10.5 ) Body mass index is 31.12 kg/m??. Constitutional: Patient is well-groomed, in NAD, A&Ox3 Lung: normal respiratory effort GI: Abd soft, NT Musculoskeletal: Gait: Antalgic Full ROM in b/l UE and LE Paraspinal muscular tenderness: absent bilaterally at cervical, thoracic and lumbar region. SLR negative bilaterally Facet tenderness: absent bilaterally at cervical, thoracic and lumbar region. SI joint tenderness: absent bilaterally. Log roll negative bilaterally Neurologic: CN III-XII intact Lower Ext Power: L2 hip flex 5/5 bilaterally L3 knee ext 5/5 bilaterally L4 foot dorsiflex 5/5 bilaterally L5 hallux dorsiflex 5/5 bilaterally S1 hallux plantar flex 5/5 bilaterally Sensation to light touch: normal bilaterally Patellar reflex 1+ L, 2+ right Skin: No rashes or lesions in the four extremities and back. Psychiatric: normal affect Assessment: The above note documents my personal evaluation of this patient. In addition, I have reviewed and confirmed with the patient and nurse the supportive information documented in today's scanned PatientHealth Questionnaire and Office Note. Encounter Diagnoses Name Primary? Spinal stenosis of lumbar region with neurogenic claudication Yes ??? Sciatica, left side ??? Chronic bilateral low back pain with bilateral sciatica Plan: 1. Interventions: Given signs and symptoms of spinal stenosis with lumbar radiculopathy, we will proceed with bilateral transforaminal epidural steroid injection at today's visit. 2. Medications: ?? Opioids: Opioids are not indicated ?? Adjuvants: Given the neuropathic component of the pain, we will continue the patient's gabapentin. 3. Imaging: No further imaging needed at this current time. 4. Referral: The patient lost his prior PT referral so we will provide one today. 5. Follow-up: In 3 months for re-evaluation of the above regimen. Debbie Wheat M.D., Ph.D Fellow, Pain Management, Department of Anesthesiology [facility] I have seen and examined the patient. I agree with the findings and plan of care as documented in the resident's note. Maru Arreola MD PhD Instructor of Anesthesiology [facility] 01/17/2019 3:45 PM documented in this encounter Miscellaneous Notes * Op Note - Maru Arreola MD PhD - 01/17/2019 3:45 PM CDT Procedure Note Attending Surgeon: Maru Arreola MD PhD Surgical Assistants: Dr. Jarret ALEXANDRA PhD Date of Surgery: 01/17/2019 NAME OF PROCEDURE: Lumbar Transforaminal Epidural Steroid [...] the skin and subcutaneous tissues were infiltrated with1% lidocaine. A 22-gauge B -bevel 3 inch spinal needle was introduced and positioned with fluoroscopic imaging. The needle was advanced to the posterior margin of the neural foramen. Needle positioning was verified with AP and lateral fluoroscopic images. Radiographic contrast (Omnipaque 300) was injected (volume 1 mL) and seen to spread in the anticipated path of the nerve root. Contrast agentwas seen to spread into the spinal canal. [...] Complications: None Maru Arreola MD PhD Date: 01/17/2019 Time: 3:45 PM TEACHING ATTESTATION : I was present [...] Chronic Care Management No change(03/23 1:47 PM FLEXO PRESS OPERATOR) No Ingrid Oden RN Note: Problem: [...] with neurogenic claudication- Primary Sciatica, left side Chronic bilateral low back pain with bilateral sciatica documented in this encounter Administered Medications Inactive Administered Medications - up to 3 most recent administrations Medication Order MAR Action Action Date Dose Rate Site bupivacaine (MARCAINE) 0.25 % (2.5 mg/mL) preservative free injection As needed, Starting on Wed01/17/19 at 1517, Intra-Op Given 01/17/2019 3:17 PM CDT 4 mL dexamethasone (DECADRON) 4 mg/mL injection Administer over 2 Minutes, As needed, Starting on Wed01/17/19 at 1517, Intra-Op Given 01/17/2019 3:17 PM CDT 8 mg iohexol (OMNIPAQUE) 300 mg iodine/mL injection solution As needed, Starting on Wed01/17/19 at 1532, Intra-Op Given 01/17/2019 3:32 PM CDT 1 mL lidocaine PF (XYLOCAINE) 10 mg/mL (1 %) preservative free injection As needed, Starting on Wed01/17/19 at 1532, Intra-Op Given 01/17/2019 3:32 PM CDT 10 mL documented in this encounter Orders Medications Ordered That Adiel ht Not Have Been Administered Count Last Ordered Date First Ordered Date bupivacaine (MARCAINE) 0.25 % (2.5 mg/mL) preservative free injection - ADS Override Pull 1 01/17/2019 dexamethasone (DECADRON) 4 m g/mL injection - ADS Override Pull 1 01/17/2019 lidocaine PF (XYLOCAINE) 10 mg/mL (1 %) preservative free injection - ADS Override Pull 1 01/17/2019 documented in this encounter Care Teams Dipper Clock And Watch Hands Relationship Specialty Start Date End Date Kraig Ching MD [address] [facility] [address] [place] [address] PCP - General 07/10/16 Gautam Cope MD [address] [facility] [address] [place] [address] Medical Oncologist/General Office Associate Medical Oncology 08/18/18 Tramaine Roe MD [address] [facility] [address] [place] [address] Referring Physician Urology 08/18/18 Sukhwinder Uribe MD [address] [facility] [address] [place] [address] Consulting Physician Urology 08/18/18 Shay Guillermo MD [address] [facility] [address] [place] [address] Referring Physician Urology 08/18/18 Marsha Landis, RN Registered Nurse 11/17/18 Ilene Fragoso, RN [address] [facility] [address] [place] [address] English Language Learner Tutor 12/23/18 11/01/19 documented as of this encounter
--- OUTSIDE RECORDS SUMMARY | 2024-03-31 05:01 | XMS_ITS | Encounter Summary ---
Author Organization [facility] Facility Care Team Providers Care Aerial Installer Name Role Phone Kraig Ching MD Primary Care Provider [phone] Gautam Cope MD Unavailable Tramaine Roe MD Unavailable [phone] Sukhwinder Uribe MD Unavailable [phone] Shay Guillermo MD Unavailable [phone] Marsha Landis RN Unavailable Unavailab le Encounter Details Date Type Department Care Team (Latest Contact Info) Description 11/17/2018 Travel Social History Tobacco Use Types Packs/Day Years Used Date Smoking Tobacco: Former Smokeless Tobacco: Never Comments:Smoking History Pac ks/day: 10 Cigarettes Alcohol Use Standard Drinks/Week Comments Yes 0 (1 standard drink = 0.6 oz pur e alcohol) Occasional glass of wine. 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 Author [facility] Chronic Pain Care Plan Chronic Care Management No change(03/23 1:47 PM AIR CONDITIONING COIL ASSEMBLER) No Ingrid Oden, SHEA Note: Problem: Chronic Pain Goals: 1. Minimize further functional decline 2. Maximize quality of life 3. Control pain Strategies: - Activity/exercise program recommendation - Conservative stepwise pain medicine strategy with multi-disciplinary approach - Recommend healthy lifestyle strategies and compensatory methods as needed documented as of this encounter Visit Diagnoses Not on filedocumented in this encounter Care Teams Aerial Installer Relationship Specialty Start Date End Date Kraig Ching MD [address] [facility] [address] [place] [address] PCP - General 07/10/16 Gautam Cope MD [address] [facility] [address] [place] [address] Medical Oncologist/Immigration Manager Medical Oncology 08/18/18 Tramaine Roe MD [address] [facility] [address] [place] [address] Referring Physician Urology 08/18/18 Sukhwinder Uribe MD [address] [facility] [address] [place] [address] Consulting Physician Urology 08/18/18 Shay Guillermo MD [address] [facility] [address] [place] [address] Referring Physician Urology 08/18/18 Marsha Landis, RN Registered Nurse 11/17/18 documented as of this encounter
--- OUTSIDE RECORDS SUMMARY | 2024-03-31 05:01 | XMS_ITS | Encounter Summary ---
Author Organization [facility] Healthcare Address [address] [place] [address] Care Team Providers Care Integration Project Manager Name Role Phone Kraig Ching MD Primary Care Provider [phone] Gautam Cope MD Unavailable Tramaine Roe MD Unavailable [phone] Sukhwinder Uribe MD Unavailable [phone] Shay Guillermo MD Unavailable [phone] Marsha Landis RN Unavailable Unavailab Ilene Kaur RN Unavailable [phone] Reason for Visit * Reason Onset Date Comments Pre-Surgical Call 01/13/2019 Encounter Details Date Type Department Care Team (Late st Contact Info) Description 01/13/2019 Telephone [facility] [place] [facility] [address] [facility] [address] [place], [place] [id number] Maru Arreola MD PhD [address] [facility] [phone] [place] [address] Pre-Surgical Call Social History Tobacco Use Types Packs/Day Years Used Date Smoking Tobacco: Former Smokeless Tobacco: Never Comments:Smoking History Pac ks/day: 10 Cigarettes Alcohol Use Standard Drinks/Week Comments Yes 0 (1 standard drink = 0.6 oz pur e alcohol) Occasional glass of wine. 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 Minimize further functional decline 2. Maximize quality of life 3. Control pain Strategies: - Activity/exercise program recommendation - Conservative stepwise pain medicine strategy with multi-disciplinary approach - Recommend healthy lifestyle strategies and compensatory methods as needed documented as of this encounter Visit Diagnoses Not on filedocumented in this encounter Care Teams Integration Project Manager Relationship Specialty Start Date End Date Kraig Ching MD [address] [facility] [address] [place] [address] PCP - General 07/10/16 Gautam Cope MD [address] [facility] [address] [place] [address] Medical Oncologist/Note Keeper Medical Oncology 08/18/18 Tramaine Roe MD [address] [facility] [address] [place] [address] Referring Physician Urology 08/18/18 Sukhwinder Uribe MD [address] [facility] [address] [place] [address] Consulting Physician Urology 08/18/18 Shay Guillermo MD [address] [facility] [address] [place] [address] Referring Physician Urology 08/18/18 Marsha Landis, RN Registered Nurse 11/17/18 Ilene Fragoso, SHEA [address] [facility] [address] [place] [address] Marketing Intelligence Analyst 12/23/18 11/01/19 documented as of this encounter
--- OUTSIDE RECORDS SUMMARY | 2024-03-31 05:01 | XMS_ITS | Encounter Summary ---
Author Organization [facility] [employer] of [facility] Address [address] [place] [address] Phone Care Team Providers Care Real Estate Services Administrator Name Role Phone Kraig Ching MD Primary Care Provider [phone] Gautam Cope MD Unavailable Tramaine Roe MD Unavailable [phone] Sukhwinder Uribe MD Unavailable [phone] Shay Guillermo MD Unavailable [phone] Marsha Landis RN Unavailable Unavailab le Reason for Visit * Episode Based Medications (Routine) - Authorized Specialty Diagnoses / Procedures Referred By Saleem t Referred To Contact Oncology Diagnoses Prostate cancer (HCC) Procedures [place] LEUPROLIDE ACETATE SUSPNSION Leuprolide Every 3 Months - Prostate Gautam Cope MD [address] [facility] [address] [place] [address] Phone: tel: fax: [facility] [address] [facility] [address] [place] [address] Referral ID Status Reason Start Date Expiration Date V isits Requested Visits Authorized [id number] Authorized 09/06/2018 07/11/2024 1 50 Encounter Details Date Type Department Care Team (Late st Contact Info) Description 12/06/2018 2:00 PM CDT Lab [facility] Oncology [address] [facility] 7th [place] [address] [place] [address] Prostate cancer (CMS/HCC); Stage 3 chronic kidney disease (CMS/HCC) Social History Tobacco Use Types Packs/Day [...] on file 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 Author CCM Chronic Pain Care Plan Chronic Care Management No change(03/23 1:47 PM ORACLE ADF DEVELOPER) No Ingrid Oden, RN Note: Problem: Chronic Pain Goals: 1. Minimize further functional decline 2. Maximize quality of life 3. Control pain Strategies: - Activity/exercise program recommendation - Conservative stepwise pain medicine strategy with multi-disciplinary approach - Recommend healthy lifestyle strategies and compensatory methods as needed documented as of this encounter Procedures Procedure Name Priority Date/Time Associated Diagnosis Comments POCT URINALYSIS DIPSTICK Routine 03/01/2019 10:55 AM ORACLE ADF DEVELOPER Stage 3 chronic kidney disease (CMS/HCC) DIFFERENTIAL AUTO Routine 12/06/2018 2:1 1 PM CDT Prostate cancer (CMS/HCC) CBC WITH AUTO DIFFERENTIAL Routine 12/06/2018 2:11 PM CDT Prostate cancer (CMS/HCC) PSA DIAGNOSTIC Routine 12/06/2018 1:58 PM CDT Prostate cancer (CMS/HCC) LACTATE DEHYDROGENASE Routine 12/06/2018 1:58 PM CDT Prostate cancer (CMS/HCC) COMPREHENSIVE METABOLIC PANEL Routine 12/06/2018 1:58 PM CDT Prostate cancer (CMS/HCC) documented in this encounter Results * POCT urinalysis dipstick (03/01/2019 10:55 AM ORACLE ADF DEVELOPER) Pathologist [facility] Glucose, ur, POC Negative Negative mg/dL Bilirubin, ur, POC Negative Negative, Small, Moderate, Large Ketones, ur, POC Negative Negative Specific [place], POC 1.020 1.005 - 1.030 Blood, ur, POC Negative Negative pH, ur, POC 6.0 5.0 - 8.0 Protein, ur, POC Negative Negative Urobilinogen, urine, POC 0.2 0.2 - 1.0 mg/dL Nitrite, ur, POC Negative Negative Leukocytes, ur, POC Negative Negative Lot Number [id number] Urine 03/01/2019 10:5 5 AM ORACLE ADF DEVELOPER Lin Guerrero MD POINT OF CARE TEST ORDERABLES Fi nal Result * (ABNORMAL) Differential, auto (12/06/2018 2:11 PM CDT) [facility] Neutrophil abs 8.6(H) 1.8 - 6.6 K/cumm [facility] Comment:Testing performed by : [facility], [address] [place] [phone] Lymphocyte abs 1.4 1.2 - 3.3 K/cumm [facility] Comment:Testing performed by : [address] [phone] Monocyte abs 0.7 0.2 - 1.2 K/cumm [facility] Comment:Testing performed by : [address] [phone] Eosinophil abs 0.2 0.0 - 0.5 K/cumm [facility] Comment:Testing performed by : [facility], [address] [place] [phone] Basophil abs 0.1 0.0 - 0.2 K/cumm [facility] Comment:Testing performed by : [address] [address] Neutrophil pct 77.6 % [facility] Comment: Interpretive Data Percent cell count reference ranges are not reported, since discordance with absolute values may lead to misinterpretation of CBC data. Current Interpretive Data was last revised on 2017. Testing performed by: [facility], [address] [place] [phone] Lymphocyte pct 12.9 % [facility] Comment: Interpretive Data Percent cell count reference ranges are not reported, since discordance with absolute values may lead to misinterpretation of CBC data. Current Interpretive Data was last revised on 2017. Testing performed by: [facility], [address] [place] [phone] Monocyte pct 6.3 % [facility] Comment:Testing performed by : [facility], [address] [place] [phone] Eosinophil pct 2.2 % [facility] Comment:Testing performed by : [facility], [address] [place] [phone] Basophil pct 1.0 % [facility] Comment:Testing performed by : [facility], [address] [place] [phone] Blood specimen (specimen) 12/06/2018 2:11 PM CDT 12/06/2018 2:12 PM CDT us Gautam Cope MD LAB BLOOD ORDERABLES Final Resul t [facility] [place] [address] * (ABNORMAL) CBC with auto differential (12/06/2018 2:11 PM CDT) WBC 11.1(H) 3.8 - 9.8 K/cumm [facility] Comment:Testing performed by : [facility], [address] [place] [phone] Hgb 11.9(L) 13.8 - 17.2 g/dL [facility] Comment:Testing performed by : [address] [address] Hct 35.7(L) 40.7 - 50.3 % [facility] Comment:Testing performed by : [address] [phone] Plt 380 140 - 440 K/cumm [facility] Comment:Testing performed by : [facility], [address] [place], [place] [phone] MPV 7.2 6.8 - 10.4 fL [facility] Comment:Testing performed by : [facility], [address] [place], [place] [phone] RBC 4.14(L) 4.50 - 5.70 M/cumm [facility] Comment:Testing performed by : [facility], [address] [place], [place] [phone] MCV 86.3 80.0 - 97.6 fL [facility] Comment:Testing performed by : [facility], [address] [place] [phone] MCH 28.8 26.7 - 33.7 pg [facility] Comment:Testing performed by : [facility], [address] [place], [place] [phone] MCHC 33.3 32.7 - 35.5 g/dL [facility] Comment:Testing performed by : [facility], [address] [place], [place] [phone] RDW CV 16.0(H) 11.8 - 14.6 % [facility] Comment:Testing performed by : [facility], [address] [place] [phone] NRBC abs 0.00 0.00 - 0.01 K/cumm [facility] Comment:Testing performed by : [facility], [address] [place] [phone] Blood specimen (specimen) 12/06/2018 2:11 PM CDT 12/06/2018 2:12 PM CDT us Gautam Cope MD LAB BLOOD ORDERABLES Final Resul t [facility] [place] [address] * Lactate dehydrogenase (LD) (12/06/2018 1:58 PM CDT) Lactate dehydrogenase (LDH) 171 100 - 250 Units/L [facility] Blood specimen (specimen) 12/06/2018 1:58 PM CDT 12/06/2018 2:28 PM CDT us Gautam Cope MD LAB BLOOD ORDERABLES Final Resul t [facility] [place] [address] * (ABNORMAL) Comprehensive metabolic panel (12/06/2018 1:58 PM CDT) Sodium 140 135 - 145 mmol/L [facility] Potassium, pl 5.5(H) 3.3 - 4.9 mmol/L [facility] Chloride 105 97 - 110 mmol/L [facility] CO2 28 22 - 32 mmol/L [facility] Anion gap 7 2 - 15 mmol/L [facility] BUN 36(H) 8 - 25 mg/dL [facility] Creatinine 1.57(H) 0.80 - 1.30 mg/dL [facility] Glucose 289(H) 70 - 199 mg/dL [facility] Comment: Interpretive Data Fasting glucose >/= [...] 2017. Calcium 9.1 8.5 - 10.3 mg/dL [facility] Bilirubin, total 0.2 0.1 - 1.2 mg/dL [facility] Protein, pl 6.8 6.5 - 8.5 g/dL [facility] Albumin 4.1 3.5 - 5.0 g/dL [facility] Alk phos 107 40 - 130 Units/L [facility] ALT 37 7 - 55 Units/L [facility] AST 21 10 - 50 Units/L [facility] Blood specimen (specimen) 12/06/2018 1:58 PM CDT 12/06/2018 2:28 PM CDT Gautam Cope MD LAB BLOOD ORDERABLES Final Resul t Performing Organization Address [facility] de Phone Number [facility] [place] [address] * PSA diagnostic (12/06/2018 1:58 PM CDT) PSA-Total 0.28 <=6.20 ng/mL [facility] Comment: Interpretive Data ?AGE ? SEX ?REFERENCE INTERVAL 0 minutes-150 years ?Female ?None 0 minutes-49 years ? Male ?None ? 50-59 years ? Male ?0-3.90 ? 60-69 years ? Male ?0-5.40 ? 70-79 years ? Male ?0-6.20 ? 80-150 years ?Male ?0-6.20 Current interpretive data last revised 2017. Blood specimen (specimen) 12/06/2018 1:58 PM CDT 12/06/2018 2:28 PM CDT us Gautam Cope MD LAB BLOOD ORDERABLES Final Resul t Performing Organization Address [facility] de Phone Number [facility] [place] [address] documented in this encounter Visit Diagnoses Diagnosis Prostate cancer (HCC) Malignant neoplasm of prostate Stage 3 chronic kidney disease (HCC) documented in this encounter Orders Appointment Requests Count Last Ordered Date Fi rst Ordered Date ONCBCN LAB APPOINTMENT 1 12/06/2018 documented in this encounter Care Teams Real Estate Services Administrator Relationship Specialty Start Date End Date Kraig Ching MD [address] [place] [address] PCP - General 07/10/16 Gautam Cope MD [address] [place] [address] Medical Oncologist/Holistic Pulser Medical Oncology 08/18/18 Tramaine Roe MD [address] [place] [address] Referring Physician Urology 08/18/18 Sukhwinder Uribe MD [address] [facility] [address] [place] [address] Consulting Physician Urology 08/18/18 Shay Guillermo MD [address] [place] [address] Referring Physician Urology 08/18/18 Marsha Landis, RN Registered Nurse 11/17/18 documented as of this encounter
--- OUTSIDE RECORDS SUMMARY | 2024-03-31 05:01 | XMS_ITS | Encounter Summary ---
Author Organization [facility] Medical [facility] Address [address] [place] [address] Care Team Providers Care Perinatal Technician Name Role Phone Kraig Ching MD Primary Care Provider Gautam Cope MD Unavailable Tramaine Roe MD Unavailable [phone] Sukhwinder Uribe MD Unavailable [phone] Shay Guillermo MD Unavailable Marsha Landis RN Unavailable Unavailab Ilene Kaur RN Unavailable Reason for Visit * Reason Comments Medicare Wellness Encounter Details Date Type Department Care Team (Late st Contact Info) Description 01/17/2019 1:00 PM CDT Office Visit [facility] [address] [place] [id number] Katherine Del Rio PA [address] [facility] [address] [place], [place] [id number] Medicare annual wellness visit, subsequent (Primary Dx); Type 2 diabetes mellitus with stage 3 chronic kidney disease, without long-term current use of insulin (CMS/HCC); Prostate cancer (CMS/HCC); Hyperlipidemia associated with type 2 diabetes mellitus (CMS/HCC); PAF (paroxysmal atrial fibrillation) (CMS/HCC); Essential hypertension; Chronic obstructive pulmonary disease, unspecified COPD type (CMS/HCC); Flu vaccine need; Obesity (BMI 30-39.9); BMI 31.0-31.9,adult Social History Tobacco Use Types Packs/Day Years [...] on file 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 Gender Identity Not on file Sexual Orientation Not on file documented as of this encounter Last Filed Vital Signs Vital Sign Reading Time Taken Comments Blood Pressure 138/70 01/17/2019 12:52 PM CDT Pulse 91 01/17/2019 12:52 PM CDT Temperature 37 ??C (98.6 ??F) 01/17/2019 12: 52 PM CDT Respiratory Rate 18 01/17/2019 12:5 2 PM CDT Oxygen Saturation 96% 01/17/2019 12: 52 PM CDT Inhaled Oxygen Concentration - - Weight 100.3 kg (221 lb 3.2 oz) 019 12:52 PM CDT Height 177.8 cm (5' 10 ) 01/17/2019 12: 52 PM CDT Body Mass Index 31.74 01/17/2019 12:52 PM CDT documented in this encounter Patient Instructions * Patient Instructions* Katherine Del Rio PA - 01/17/2019 1:00 PM CDT Health Maintenance Topics with due status: Overdue Topic Date Due Regular Well Visit/Exam 1940 DTaP/Tdap/Td Vaccine 11/08/1951 Zoster Vaccines 1990 Influenza Vaccine 12/11/2018 Health Maintenance Topics with due status: Not Due Topic Last Completion Date Urine Microalbumin 03/07/2018 Dilated Eye Exam 06/29/2018 Depression Screening-PHQ 08/29/2018 Hemoglobin A1C 10/18/2018 Fall Risk Assessment 11/17/2018 Foot Exam 11/17/2018 Lipid Panel 11/17/2018 Pneumococcal (PCV13 & PPSV23) 65+ yrs 11/17/2018 documented in this encounter Ordered Prescriptions Prescription Sig Dispense Quantity Refills Last Filled Start Date End Date lisinopril (CASEYZESTRIL) 20 mg tabletIndications: Essential hypertension Take 1 tablet (20 mg total) by mouth daily 30 tablet 5 01/17/2019 07/10/2019 documented in this encounter Progress Notes * Katherine Del Rio PA - 01/17/2019 1:00 PM CDT MEDICARE SUBSEQUENT ANNUAL WELLNESS VISIT David Wei He is here today for his annual Medicare wellness visit. 1. T2DM. He is prescribed Lantus, basaglar, januvia and metformin. Last A1c = 8.5. Current with dilated eye exam. 2. Prostate cancer. Dx 1999. S/p radical prostatectomy and radiation Tx. Metastatic disease identified on pelvic MRI in 07/2018. He is currently prescribed abiraterone, lupron and prednisone. He complains of hot flashes and muscle spasms. 3. PAF. Currently prescribed diltiazem and ASA. 4. CKD, stage 3. Recent Cr = 1.57 5. HTN. Complicated by HFpEF. Compliant with lisinopril and chlorthalidone. No LE swelling, chest pain or unusual SOB. 6. HLD. Last LDL = 120. Compliant with pravastatin. 7. COPD. Denies SOB, cough. 8. Health maintenance. Current with prevnar 13. Due for flu shot. Medicare Health Risk Assessment has been completed by the patient and scanned into the Media section of the chart. Problem List, Past Medical and Surgical History: Patient Active Problem List Diagnosis ??? Hypertension ??? Type 2 diabetes mellitus with stage 3 chronic kidney disease, without long- term current use of insulin (CMS/HCC) ??? Hyperlipidemia associated with type 2 diabetes mellitus (CMS/HCC) ??? Vitamin D deficiency disease ??? Inflamed seborrheic keratosis ??? Actinic keratosis ??? Benign neoplastic disease ??? Angioma ??? Allergy to statin medication ??? Tobacco use ??? PAF (paroxysmal atrial fibrillation) (CMS/HCC) ??? COPD (chronic obstructive pulmonary disease) (CMS/HCC) ??? Stage 3 chronic kidney disease (CMS/HCC) ??? Hypertensive kidney disease with chronic kidney disease stage III (CMS/HCC) ??? Duodenal ulcer ??? Chronic diastolic heart failure (CMS/HCC) ??? Shortness of breath ??? SBO (small bowel obstruction) (CMS/HCC) ??? Prostate cancer (CMS/HCC) ??? Spinal stenosis of lumbar region with neurogenic claudication ??? Sciatica, left side ??? Chronic bilateral low back pain with bilateral sciatica Past Medical History: Diagnosis Date ??? A-fib [...] Social Needs ??? Financial resource strain: Not on file ??? Food insecurity: Worry: Not on file Inability: Not on file ??? Transportation needs: Medical: Not on file Non-medical: Not on file Tobacco Use ??? Smoking status: Former Smoker ??? Smokeless tobacco: Never Used ??? Tobacco comment: Smoking History Packs/day: 10 Cigarettes Substance and Sexual Activity ??? Alcohol use: Yes Comment: Occasional glass of wine. ??? Drug use: Yes Types: Marijuana ??? Sexual activity: Defer Lifestyle ??? Physical activity: Days per week: Not on file Minutes per session: Not on file ??? Stress: Not on file Relationships ??? Social connections: Talks on phone: Not on file Gets together: Not on file Attends yazdanism service: Not on file Active member of club or organization: Not on file Attends meetings of clubs or organizations: Not on file Relationship status: Not on file ??? Intimate partner violence: Fear of current or ex partner: Not on file Emotionally abused: Not on file Physically abused: Not on file Forced sexual activity: Not on file Other Topics Concern ??? Not on file Social History Narrative ??? Not on file Allergies: No Known Allergies Medications: Current Outpatient Medications: ??? abiraterone (ZYTIGA) 250 mg tablet, Take 4 tablets (1,000 mg total) by mouth daily Do not eat anything for at least 2 hours before and for at least 1 hour after, Disp: 120 tablet, Rfl: 11 ??? ACCU-CHEK FASTCLIX [facility], TEST BLOOD SUGAR BID, Disp: , Rfl: 1 ??? aspirin 81 mg tablet, Take 1 tablet (81 mg total) by mouth daily., Disp: 30 tablet, Rfl: 11 ??? BASAGLAR KWIKPEN U-100 INSULIN 100 unit/mL (3 mL) insulin pen, INJECT 10 UNITS UNDER THE SKIN DAILY UTD, Disp: , Rfl: 11 ??? blood glucose diagnostic strip, , Disp: , Rfl: ??? chlorthalidone 25 mg tablet, Take 1/2 tablet daily (12.5 mg), Disp: 15 tablet, Rfl: 11 ??? diltiaZEM (CARDIZEM) 120 mg tablet, TAKE 1 TABLET BY MOUTH DAILY, Disp: 90 tablet, Rfl: 3 ??? gabapentin (NEURONTIN) 100 mg capsule, Take 2 capsules (200 mg total) by mouth nightly, Disp: 60 capsule, Rfl: 2 ??? insulin glargine (LANTUS U-100 INSULIN) 100 unit/mL injection, Injected daily as directed. (Patient taking differently: Inject 10 Units under the skin daily Injected daily as directed.), Disp: 10mL, Rfl: 11 ??? JANUVIA 25 mg tablet, TAKE 1 TABLET BY MOUTH DAILY, Disp: 30 tablet, Rfl: 11 ??? metFORMIN (GLUCOPHAGE) 500 mg tablet, TAKE 1 TABLET(500 MG) BY MOUTH TWICE DAILY WITH MEALS, Disp: 60 tablet, Rfl: 3 ??? ONETOUCH ULTRA BLUE TEST STRIP strip, TEST SUGAR TWICE DAILY, Disp: 100 each, Rfl: 3 ??? pantoprazole DR (PROTONIX) 40 mg EC tablet, TAKE 1 TABLET(40 MG) BY MOUTH DAILY, Disp: 30 tablet, Rfl: 5 ??? predniSONE (DELTASONE) 5 mg tablet, Take 1 tablet (5 mg) by mouth 2 (two) times a day, Disp: 60tablet, Rfl: 11 ??? TRAVATAN Z 0.004 % drops, INT 1 DROP INTO OU QHS, Disp: , Rfl: 5 ??? BD ULTRA-FINE SHORT PEN NEEDLE 31 gauge x 5/16 needle, USE TO INJECT INSULIN ONCE DIALY, Disp:100 each, Rfl: 0 ??? gabapentin (NEURONTIN) 100 mg capsule, Take 1 capsule (100 mg total) by mouth nightly, Disp: 30capsule, Rfl: 0 ??? lisinopril (PRINIVIL,ZESTRIL) 20 mg tablet, Take 1 tablet (20 mg total) by mouth daily, Disp: 30 tablet, Rfl: 5 ??? pravastatin (PRAVACHOL) 20 mg tablet, TAKE 1 TABLET(20 MG) BY MOUTH DAILY, Disp: 30 tablet, Rfl: 0 Vitals: Vitals BP 138/70 (BP Location: Right arm, Patient Position: Sitting) Pulse 91 Temp 37 ??C (98.6 ??F) (Oral) Resp 18 Ht 177.8 cm (5' 10 ) Wt 100.3 kg (221 lb 3.2 oz) SpO2 96% BMI 31.74 kg/m?? Body mass index is 31.74 kg/m??. Exam: Physical Exam Constitutional: He is oriented to person, place, and time. He appears well- developed and well-nourished. HENT: Head: Normocephalic and atraumatic. Right Ear: Tympanic membrane, external ear and ear canal normal. Left Ear: Tympanic membrane, external ear and ear canal normal. Nose: No mucosal edema. Mouth/Throat: Oropharynx is clear and moist. Eyes: Pupils are equal, round, and reactive to light. Conjunctivae and EOM are normal. Neck: Normal range of motion. Neck supple. No thyromegaly present. Cardiovascular: Normal rate, regular rhythm, S1 normal, S2 normal and intact distal pulses. Pulses: Dorsalis pedis pulses are 2+ on the right side, and 2+ on the left side. Posterior tibial pulses are 2+ on the right side, and 2+ on the left side. Pulmonary/Chest: Effort normal. He has no wheezes. He has rales in the right lower field. Abdominal: Soft. Bowel sounds are normal. He exhibits no mass. There is no hepatosplenomegaly. There is no tenderness. There is no rigidity, no guarding and no CVA tenderness. Musculoskeletal: Normal range of motion. He exhibits no edema. Lymphadenopathy: He has no cervical adenopathy. Neurological: He is alert and oriented to person, place, and time. He has normal strength. No cranial nerve deficit or sensory deficit. He displays a negative Romberg sign. Gait normal. Skin: Skin is warm and dry. Capillary refill takes less than 2 seconds. No rash noted. Psychiatric: He has a normal mood and affect. His behavior is normal. Judgment normal. He exhibits normal recent memory. Normal short blessed test. Vitals reviewed. Care Team Providers: Patient Care Team: Kraig Ching MD as PCP - General Kraig Ching MD as PCP - [facility] Attributed PCP Gautam Cope MD as Medical Oncologist/Licensed Dispensing Optician (Medical Oncology) Tramaine Roe MD as Referring Physician (Urology) Sukhwinder Uribe MD as Consulting Physician (Urology) Shay Guillermo MD as Referring Physician (Urology) Marsha Landis RN as Registered Nurse Ilene Fragoso RN as Fire Alarm InspectorWhistle Punk Pharmacy/DME suppliers: [id number] - [place], [place] - [address] AT [place] [address]) [address] [facility] [id number] [facility] [place], [place] - [facility] [address] Detection of Cognitive Impairment: The patient does not have cognitive impairment based on direct observation, discussion with patientor family, or review of medical records. Health Maintenance: Health Maintenance Topics with due status: Overdue Topic Date Due Regular Well Visit/Exam 1940 DTaP/Tdap/Td Vaccine 11/08/1951 Zoster Vaccines 1990 Health Maintenance Topics with due status: Not Due Topic Last Completion Date Urine Microalbumin 03/07/2018 Dilated Eye Exam 06/29/2018 Hemoglobin A1C 10/18/2018 Foot Exam 11/17/2018 Lipid Panel 11/17/2018 Pneumococcal (PCV13 & PPSV23) 65+ yrs 11/17/2018 Fall Risk Assessment 01/17/2019 Depression Screening-PHQ 01/17/2019 Health Maintenance Topics with due status: Completed Topic Last Completion Date Influenza Vaccine 01/17/2019 Counseling and Referral of Preventative Services: Lifestyle Recommendations Increase Physical Activity, Reduce Weight and Improve Diet Advanced Directive Durable Power of AttorneyNo Living Will No Assessment and Plan: Diagnoses and all orders for this visit: Medicare annual wellness visit, subsequent (Primary) Comments: Annual screening status reviewed. Flu shot today. Orders: - Flu Vaccine High Dose Tri PF 65y+ IM - Fluzone Type 2 diabetes mellitus with stage 3 chronic kidney disease, without long-term current use of insulin ([facility]) Comments: Recent A1c close to goal. Continue nephrotoxin avoidance. Prostate cancer ([facility]) Comments: Continue management per oncology. Hyperlipidemia associated with type 2 diabetes mellitus ([facility]) Comments: Improved. Continue pravastatin and low cholesterol diet. PAF (paroxysmal atrial fibrillation) ([facility]) Comments: RRR today. Continue current medications. Essential hypertension Comments: BP at goal. Taper lisinopril due to chronic hyperkalemia. Continue Orders: - Basic metabolic panel; Future - lisinopril (PRINIVIL,ZESTRIL) 20 mg tablet; Take 1 tablet (20 mg total) by mouth daily Chronic obstructive pulmonary disease, unspecified COPD type ([facility]) Comments: Asymptomatic. Monitor Flu vaccine need - Flu Vaccine High Dose Tri PF 65y+ IM - Fluzone Obesity (BMI 30-39.9) BMI 31.0-31.9,adult Patient here for annual Medicare wellness visit [...] update and summary of today's office visit. ER documented in this encounter Plan of Treatment [...] monitor diabetes and kidney status, etc. [facility] Chronic Pain Care Plan Chronic Care Management No change(03/23 1:47 PM BARBER) No Ingrid Oden, RN Note: Problem: Chronic Pain Goals: 1. Minimize further functional decline 2. Maximize quality of life 3. Control pain Strategies: - Activity/exercise program recommendation - Conservative stepwise pain medicine strategy with multi-disciplinary approach - Recommend healthy lifestyle strategies and compensatory methods as needed documented as of this encounter Results * (ABNORMAL) Basic metabolic panel (01/17/2019 1:40 PM CDT) Sodium 141 135 - 145 mmol/L [facility] Potassium, pl 4.9 3.3 - 4.9 mmol/L [facility] Chloride 102 97 - 110 mmol/L [facility] CO2 26 22 - 32 mmol/L [facility] Anion gap 13 2 - 15 mmol/L [facility] BUN 43(H) 8 - 25 mg/dL [facility] Creatinine 1.75(H) 0.80 - 1.30 mg/dL [facility] Glucose 211(H) 70 - 199 mg/dL [facility] [...] interpretive data was last revised 2017. Calcium 9.3 8.5 - 10.3 mg/dL [facility] Blood specimen (specimen) 01/17/2019 1:40 PM CDT 01/17/2019 5:54 PM CDT Katherine [facility] BLOOD ORDERABLES Final Result [facility] [address] [place] [address] documented in this encounter Visit Diagnoses Diagnosis Medicare annual wellness visit, subsequent- Primary Type 2 diabetes mellitus with stage 3 chronic kidney disease, without long-term current use of insulin (HCC) Prostate cancer (HCC) Malignant neoplasm of prostate Hyperlipidemia associated with type 2 diabetes mellitus (HCC) PAF (paroxysmal atrial fibrillation) (CMS/HCC) (HCC) Atrial fibrillation Essential hypertension Unspecified essential hypertension Chronic obstructive pulmonary disease, unspecified COPD type (HCC) Flu vaccine need Obesity (BMI 30-39.9) BMI 31.0-31.9,adult documented in this encounter Discontinued Medications Medication Sig Discontinue Reason Start Date End Da te lisinopril (PRINIVIL,ZESTRIL) 40 mg tablet Take 1 tablet (40 mg total) by mouth daily Dose adjustment 07/12/2018 01/17/2019 documented as of this encounter Orders Immunization/Injection Count Last Ordered Date First Ordered Date FLU VACCINE HD TRI PF 65Y+ IM 1 01/17/2019 documented in this encounter Care Teams Perinatal Technician Relationship Specialty Start Date End Date Kraig Ching MD [address] [facility] [address] [place] [address] PCP - General 07/10/16 Gautam Cope MD [address] [place] [address] Medical Oncologist/Licensed Dispensing Optician Medical Oncology 08/18/18 Tramaine Roe MD [address] [place] [address] Referring Physician Urology 08/18/18 Sukhwinder Uribe MD [address] [place] [address] Consulting Physician Urology 08/18/18 Shay Guillermo MD [address] [place] [address] Referring Physician Urology 08/18/18 Marsha Landis, RN Registered Nurse 11/17/18 Ilene Fragoso, RN [address] [facility] [place] [address] Fire Alarm Inspector 12/23/18 11/01/19 documented as of this encounter
--- OUTSIDE RECORDS SUMMARY | 2024-03-31 05:01 | XMS_ITS | Encounter Summary ---
Author Organization [facility] Address [address] [place] [address] Phone Care Team Providers Care Photographer News Name Role Phone Kraig Ching MD Primary Care Provider [phone] Gautam Cope MD Unavailable Tramaine Roe MD Unavailable [phone] Sukhwinder Uribe MD Unavailable [phone] Shay Guillermo MD Unavailable [phone] Marsha Landis RN Unavailable Unavailab le Encounter Details Date Type Department Care Team (Late st Contact Info) Description 12/09/2018 Orders Only [facility] Oncology [address] 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 Author CCM Chronic Pain Care Plan Chronic Care Management No change(03/23 1:47 PM ORTHOPEDIC DESIGNER) No Ingrid Oden, SHEA Note: Problem: Chronic Pain Goals: 1. Minimize further functional decline 2. Maximize quality of life 3. Control pain Strategies: - Activity/exercise program recommendation - Conservative stepwise pain medicine strategy with multi-disciplinary approach - Recommend healthy lifestyle strategies and compensatory methods as needed documented as of this encounter Visit Diagnoses Not on filedocumented in this encounter Care Teams Photographer News Relationship Specialty Start Date End Date Kraig Ching MD [address] [place] [address] PCP - General 07/10/16 Gautam Cope MD [address] [place] [address] Medical Oncologist/Highway Maintainer Medical Oncology 08/18/18 Tramaine Roe MD [address] [place] [address] Referring Physician Urology 08/18/18 Sukhwinder Uribe MD [address] [place] [address] Consulting Physician Urology 08/18/18 Shay Guillermo MD [address] [place] [address] Referring Physician Urology 08/18/18 Marsha Landis, RN Registered Nurse 11/17/18 documented as of this encounter
--- OUTSIDE RECORDS SUMMARY | 2024-03-31 05:01 | XMS_ITS | Encounter Summary ---
Author Organization [facility] Address [address] [place] [address] Phone Care Team Providers Care Automation Qa Analyst Name Role Phone Kragi Ching MD Primary Care Provider [phone] Gautam Cope MD Unavailable Tramaine Roe MD Unavailable Sukhwinder Uribe MD Unavailable [phone] Shay Guillermo MD Unavailable [phone] Marsha Landis RN Unavailable Unavailab le Encounter Details Date Type Department Care Team (Late st Contact Info) Description 12/02/2018 Orders Only [facility] Oncology [address] [facility] Advanced Medicine 7th [place] [address] [place] [address] Muna Saleem RN Prostate cancer ([facility]) Social History Tobacco Use Types Packs/Day Years [...] on file 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 Author CCM Chronic Pain Care Plan Chronic Care Management No change(03/23 1:47 PM HEEL SEAT FLAP STAPLER) No Ingrid Oden, RN Note: Problem: Chronic Pain Goals: 1. Minimize further functional decline 2. Maximize quality of life 3. Control pain Strategies: - Activity/exercise program recommendation - Conservative stepwise pain medicine strategy with multi-disciplinary approach - Recommend healthy lifestyle strategies and compensatory methods as needed documented as of this encounter Results * (ABNORMAL) CBC with auto differential (03/07/2019 8:48 AM HEEL SEAT FLAP STAPLER) WBC 7.9 3.8 - 9.8 K/cumm [facility] Comment:Testing performed by : [facility], [address] [place] [phone] Hgb 12.1(L) 13.8 - 17.2 g/dL [facility] Comment:Testing performed by : [address] [address] Hct 36.7(L) 40.7 - 50.3 % [facility] Comment:Testing performed by : [facility], [address] [place] [phone] Plt 358 140 - 440 K/cumm [facility] Comment:Testing performed by : [address] [address] MPV 7.6 6.8 - 10.4 fL [facility] Comment:Testing performed by : [address] [address] RBC 3.99(L) 4.50 - 5.70 M/cumm [facility] Comment:Testing performed by : [address] [address] MCV 92.0 80.0 - 97.6 fL [facility] Comment:Testing performed by : [address] [address] MCH 30.4 26.7 - 33.7 pg [facility] Comment:Testing performed by : [address] [address] MCHC 33.1 32.7 - 35.5 g/dL [facility] Comment:Testing performed by : [facility], [address] [facility] [address] RDW CV 13.8 11.8 - 14.6 % MERLINE PERDOMO Comment:Testing performed by : [facility], [address] [facility] [address] NRBC abs 0.00 0.00 - 0.01 K/cumm [facility] Comment:Testing performed by : [facility], [address] [place] [phone] Blood specimen (specimen) 03/07/2019 8:48 AM HEEL SEAT FLAP STAPLER 03/07/2019 8:49 AM HEEL SEAT FLAP STAPLER us Gautam Cope MD LAB BLOOD ORDERABLES Final Resul t [facility] Department [place] [address] * PSA diagnostic (03/07/2019 8:48 AM HEEL SEAT FLAP STAPLER) PSA-Total 0.20 <=6.20 ng/mL [facility] Comment: Interpretive Data ?AGE ? SEX ?REFERENCE INTERVAL 0 minutes-150 years ?Female ?None 0 minutes-49 years ? Male ?None ? 50-59 years ? Male ?0-3.90 ? 60-69 years ? Male ?0-5.40 ? 70-79 years ? Male ?0-6.20 ? 80-150 years ?Male ?0-6.20 Current interpretive data last revised 2017. Blood specimen (specimen) 03/07/2019 8:48 AM HEEL SEAT FLAP STAPLER 03/07/2019 8:55 AM HEEL SEAT FLAP STAPLER us Gautam Coep MD LAB BLOOD ORDERABLES Final Resul t [facility] Department [place] [address] * (ABNORMAL) Comprehensive metabolic panel (03/07/2019 8:48 AM HEEL SEAT FLAP STAPLER) Sodium 138 135 - 145 mmol/L [facility] Potassium, pl 4.2 3.3 - 4.9 mmol/L [facility] Chloride 102 97 - 110 mmol/L [facility] CO2 28 22 - 32 mmol/L [facility] Anion gap 8 2 - 15 mmol/L [facility] BUN 35(H) 8 - 25 mg/dL [facility] Creatinine 1.75(H) 0.80 - 1.30 mg/dL [facility] Glucose 229(H) 70 - 199 mg/dL [facility] Comment: Interpretive Data Fasting glucose [...] 2017. Calcium 9.5 8.5 - 10.3 mg/dL [facility] Bilirubin, total 0.3 0.1 - 1.2 mg/dL [facility] Protein, pl 6.7 6.5 - 8.5 g/dL [facility] Albumin 4.1 3.5 - 5.0 g/dL [facility] Alk phos 94 40 - 130 Units/L [facility] ALT 23 7 - 55 Units/L [facility] AST 21 10 - 50 Units/L [facility] Blood specimen (specimen) 03/07/2019 8:48 AM HEEL SEAT FLAP STAPLER 03/07/2019 8:55 AM HEEL SEAT FLAP STAPLER Gautam Cope MD LAB BLOOD ORDERABLES Final Resul t Performing Organization Address [facility] Co de Phone Number [facility] Department [place] [address] * Lactate dehydrogenase (LD) (03/07/2019 8:48 AM HEEL SEAT FLAP STAPLER) Lactate dehydrogenase (LDH) 191 100 - 250 Units/L [facility] Blood specimen (specimen) 03/07/2019 8:48 AM HEEL SEAT FLAP STAPLER 03/07/2019 8:55 AM HEEL SEAT FLAP STAPLER Gautam Cope MD LAB BLOOD ORDERABLES Final Resul t Performing Organization Address [facility] de Phone Number [facility] Department [place] [address] documented in this encounter Visit Diagnoses Diagnosis Prostate cancer (HCC) Malignant neoplasm of prostate documented in this encounter Orders Appointment Requests Count Last Ordered Date Fi rst Ordered Date ONCBCN CLINIC APPOINTMENT REQUEST 1 019 ONCBCN INJECTION APPOINTMENT REQUEST 1 02/11 ONCBCN LAB APPOINTMENT 1 03/07/2019 documented in this encounter Care Teams Automation Qa Analyst Relationship Specialty Start Date End Date Kraig Ching MD [address] [place] [address] PCP - General 07/10/16 Gautam Cope MD [address] [place] [address] Medical Oncologist/Bilingual Spanish Inbound Sales Medical Oncology 08/18/18 Tramaine Roe MD [address] [place] [address] Referring Physician Urology 08/18/18 Sukhwinder Uribe MD [address] [place] [address] Consulting Physician Urology 08/18/18 Shay Guillermo MD [address] [facility] [address] [place] [address] Referring Physician Urology 08/18/18 Marsha Landis RN Registered Nurse 11/17/18 documented as of this encounter
--- OUTSIDE RECORDS SUMMARY | 2024-03-31 05:01 | XMS_ITS | Encounter Summary ---
Author Organization [facility] Address [address] [place] [address] Phone Care Team Providers Care Flume Maker Name Role Phone Kraig Ching MD Primary Care Provider [phone] Gautam Cope MD Unavailable Tramaine Roe MD Unavailable [phone] Sukhwinder Uribe MD Unavailable [phone] Shay Guillermo MD Unavailable [phone] Marsha Landis RN Unavailable Unavailab Ilene Kaur RN Unavailable [phone] Encounter Details Date Type Department Care Team (Late st Contact Info) Description 12/06/2018 Telephone [facility] Oncology [facility] Advanced Medicine 7th [place] [address] Salena Bryan NP [address] [place] [address] Social History Tobacco Use Types Packs/Day Years [...] on file 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 Author CCM Chronic Pain Care Plan Chronic Care Management No change(03/23 1:47 PM NIB FINISHER) No Ingrid Oden, SHEA Note: Problem: Chronic Pain Goals: 1. Minimize further functional decline 2. Maximize quality of life 3. Control pain Strategies: - Activity/exercise program recommendation - Conservative stepwise pain medicine strategy with multi-disciplinary approach - Recommend healthy lifestyle strategies and compensatory methods as needed documented as of this encounter Visit Diagnoses Not on filedocumented in this encounter Care Teams Flume Maker Relationship Specialty Start Date End Date Kraig Ching MD [address] [place] [address] PCP - General 07/10/16 Gautam Cope MD [address] [place] [address] Medical Oncologist/Performance Management Consultant Medical Oncology 08/18/18 Tramaine Roe MD [address] [facility] [address] [place] [address] Referring Physician Urology 08/18/18 Sukhwinder Uribe MD [address] [facility] [address] [place] [address] Consulting Physician Urology 08/18/18 Shay Guillermo MD [address] [facility] [address] [place] [address] Referring Physician Urology 08/18/18 Marsha Landis, RN Registered Nurse 11/17/18 Ilene Fragoso, RN [address] [facility] [address] [place] [address] Cutting Table Operator 12/23/18 11/01/19 documented as of this encounter
--- OUTSIDE RECORDS SUMMARY | 2024-03-31 05:01 | XMS_ITS | Encounter Summary ---
Author Organization [facility] Address [address] [place] [address] Phone Care Team Providers Care Monitor Tech Name Role Phone Kraig Ching MD Primary Care Provider [phone] Gautam Cope MD Unavailable Tramaine Roe MD Unavailable [phone] Sukhwinder Uribe MD Unavailable [phone] Shay Guillermo MD Unavailable [phone] Marsha Landis RN Unavailable Unavailab le Reason for Visit * Reason Comments Injections Lupron * Episode Based Medications (Routine) - Authorized Specialty Diagnoses / Procedures Referred By Saleem t Referred To Contact Oncology Diagnoses Prostate cancer (HCC) Procedures [place] LEUPROLIDE ACETATE SUSPNSION Leuprolide Every 3 Months - Prostate Gautam Cope MD [address] [facility] [address] [place] [address] Phone: tel: fax: [facility] - Infusion [address] [facility] [address] [place] [address] Referral ID Status Reason Start Date Expiration Date V isits Requested Visits Authorized [id number] Authorized 09/06/2018 07/11/2024 1 50 Encounter Details Date Type Department Care Team (Late st Contact Info) Description 12/13/2018 11:15 AM CDT Infusion [facility] Oncology [address] 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 Nalini Isbell RN documented in this encounter Plan of Treatment Not on file documented as of this encounter Goals Goal Patient Goal Type Associated Problems Recent Progress Patient-Stated? Author CCM Chronic Pain Care Plan Chronic Care Management No change(03/23 1:47 PM POWER DRIVEN BRUSH MAKER) No Ingrid Oden, SHEA Note: Problem: [...] 22.5 mg 22.5 mg, intramuscular, Once, On Wed12/13/18 at 1115, For 1 doseIndications:Prostate cancer (HCC) Given 12/13/2018 10:45 AM CDT 22.5 mg Left Dorsogluteal/Butt ock documented in this encounter Orders Nursing Count Last Ordered Date First Orde red Date ONCBCN TREATMENT PARAMETERS 2 1 12/13/2018 Appointment Requests Count Last Ordered Date Fi rst Ordered Date ONCBCN INJECTION APPOINTMENT REQUEST 1 06/2018 documented in this encounter Care Teams Monitor Tech Relationship Specialty Start Date End Date Kraig Ching MD [address] [place] [address] PCP - General 07/10/16 Gautam Cope MD [address] [place] [address] Medical Oncologist/Real Estate Sales Associate Medical Oncology 08/18/18 Tramaine Roe MD [address] [place] [address] Referring Physician Urology 08/18/18 Sukhwinder Uribe MD [address] [place] [address] Consulting Physician Urology 08/18/18 Shay Guillermo MD [address] [place] [address] Referring Physician Urology 08/18/18 Marsha Landis, RN Registered Nurse 11/17/18 documented as of this encounter
--- OUTSIDE RECORDS SUMMARY | 2024-03-31 05:01 | XMS_ITS | Encounter Summary ---
Author Organization [facility] Address [address] [facility] [address] [place] [address] Care Team Providers Care Pull Over Machine Operator Name Role Phone Kraig Ching MD Primary Care Provider [phone] Gautam Cope MD Unavailable Tramaine Roe MD Unavailable [phone] Sukhwinder Uribe MD Unavailable [phone] Shay Guillermo MD Unavailable Marsha Landis RN Unavailable Unavailab Ilene Kaur RN Unavailable [phone] Reason for Visit * Reason Comments Blood Pressure Check Encounter Details Date Type Department Care Team (Late st Contact Info) Description 02/17/2019 1:45 PM PPA TEACHER Office Visit [facility] [address] [facility] [address] [place] [address] Katherine Del Rio PA [address] [facility] [address] [place], [place] [id number] Essential hypertension (Primary Dx); Hyperkalemia; Obesity (BMI 30-39.9); BMI 31.0-31.9,adult Social History [...] on file Legal Sex Male 4:46 PM PPA TEACHER Gender Identity Not on file Sexual Orientation Not on file documented as of this encounter Last Filed Vital Signs Vital Sign Reading Time Taken Comments Blood Pressure 136/74 02/17/2019 2:28 PM PPA TEACHER Pulse 81 02/17/2019 1:58 PM PPA TEACHER Temperature 37.1 ??C (98.7 ??F) 02/17/2019 1:58 PM CS T Respiratory Rate 16 02/17/2019 1:58 PM PPA TEACHER Oxygen Saturation 96% 02/17/2019 1:58 PM PPA TEACHER Inhaled Oxygen Concentration - - Weight 99.8 kg (220 lb) 02/17/2019 1:58 PM PPA TEACHER Height 179.1 cm (5' 10.5 ) 02/17/2019 1:58 PM CS T Body Mass Index 31.12 02/17/2019 1:58 PM PPA TEACHER documented in this encounter Progress Notes * Katherine Del Rio, SIERRA - 02/17/2019 1:45 PM CST Subjective/Objective Patient ID: David Wei is a 78 y.o. male. Chief Complaint Blood Pressure Check He is here today for BP follow up. Lisinopril was tapered last month because of hyperkalemia. Home BP has been running a little high in the morning 170-180/80 and 140/70-80 in the afternoon. He is scheduled to have lab work done later today. Review of Systems Constitutional: Negative for fatigue. Respiratory: Negative for shortness of breath. Cardiovascular: Negative for chest pain and palpitations. Musculoskeletal: Negative for gait problem. Neurological: Negative for dizziness, weakness, light-headedness and headaches. BP 136/74 Pulse 81 Temp 37.1 ??C (98.7 ??F) Resp 16 Ht 179.1 cm (5' 10.5 ) Wt 99.8 kg (220 lb) SpO2 96% BMI 31.12 kg/m?? Physical Exam Vitals signs reviewed. Constitutional: Appearance: Normal appearance. He is well-developed. HENT: Head: Normocephalic and [...] time. Cranial Nerves: No cranial nerve deficit. Psychiatric: Mood and Affect: Mood normal. Assessment/Plan Diagnoses and all orders for this visit: Essential hypertension (Primary) Comments: BP at goal. Continue current meds and home BP monitoring. Hyperkalemia Comments: Recent lab reviewed. Will await Nephrology lab results. Obesity (BMI 30-39.9) BMI 31.0-31.9,adult SIERRA Landry TEACHER documented in this encounter Plan of Treatment [...] Chronic Care Management No change(03/23 1:47 PM PPA TEACHER) No Ingrid Oden, RN Note: Problem: Chronic Pain Goals: 1. Minimize further functional decline 2. Maximize quality of life 3. Control pain Strategies: - Activity/exercise program recommendation - Conservative stepwise pain medicine strategy with multi-disciplinary approach - Recommend healthy lifestyle strategies and compensatory methods as needed documented as of this encounter Visit Diagnoses Diagnosis Essential hypertension- Primary Unspecified essential hypertension Hyperkalemia Hyperpotassemia Obesity (BMI 30-39.9) BMI 31.0-31.9,adult documented in this encounter Care Teams Pull Over Machine Operator Relationship Specialty Start Date End Date Kraig Ching MD [address] [place] [address] PCP - General 07/10/16 Gautam Cope MD [address] [place] [address] Medical Oncologist/Wire Strander Medical Oncology 08/18/18 Tramaine Roe MD [address] [place] [address] Referring Physician Urology 08/18/18 Sukhwinder Uribe MD [address] [place] [address] Consulting Physician Urology 08/18/18 Shay Guillermo MD [address] [place] [address] Referring Physician Urology 08/18/18 Marsha Landis, RN Registered Nurse 11/17/18 Ilene Fragoso, RN [address] [place] [address] Communications Manager 12/23/18 11/01/19 documented as of this encounter
--- OUTSIDE RECORDS SUMMARY | 2024-03-31 05:01 | XMS_ITS | Encounter Summary ---
Author Organization [facility] Address [address] [place] [address] Care Team Providers Care Security Services Manager Name Role Phone Kraig Ching MD Primary Care Provider [phone] Gautam Cope MD Unavailable Tramaine Roe MD Unavailable [phone] Sukhwinder Uribe MD Unavailable [phone] Shay Guillermo MD Unavailable [phone] Marsha Landis RN Unavailable Unavailab Ilene Kaur RN Unavailable [phone] Reason for Visit * Reason Onset Date Comments CALL BACK 01/10/2019 Encounter Details Date Type Department Care Team (Late st Contact Info) Description 01/10/2019 Telephone 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 Mr. Wei is scheduled for a TFESI on 01/17. He does not need to be NPO. Asked to call back if he is on blood thinners or has a fever or antibiotics. documented in this encounter Plan of Treatment [...] Chronic Care Management No change(03/23 1:47 PM CONDUCTOR/BRAKEMAN) No Ingrid Oden, RN Note: Problem: Chronic Pain Goals: 1. Minimize further functional decline 2. Maximize quality of life 3. Control pain Strategies: - Activity/exercise program recommendation - Conservative stepwise pain medicine strategy with multi-disciplinary approach - Recommend healthy lifestyle strategies and compensatory methods as needed documented as of this encounter Visit Diagnoses Not on filedocumented in this encounter Care Teams Security Services Manager Relationship Specialty Start Date End Date Kraig Ching MD [address] [place] [address] PCP - General 07/10/16 Gautam Cope MD [address] [place] [address] Medical Oncologist/Sephora Product Consultant Medical Oncology 08/18/18 Tramaine Roe MD [address] [place] [address] Referring Physician Urology 08/18/18 Sukhwinder Uribe MD [address] [place] [address] Consulting Physician Urology 08/18/18 Shay Guillermo MD [address] [place] [address] Referring Physician Urology 08/18/18 Marsha Landis, RN Registered Nurse 11/17/18 Ilene Fragoso, RN [address] [facility] [address] [place] [address] Gelatin Plant Supervisor 12/23/18 11/01/19 documented as of this encounter
--- OUTSIDE RECORDS SUMMARY | 2024-03-31 05:01 | XMS_ITS | Encounter Summary ---
Author Organization [facility] Address [address] [place] [address] Phone Care Team Providers Care Completion Supervisor Name Role Phone Mike Lerner MD Primary Care Provider [phone] Gautam Cope MD Unavailable Tramaine Roe MD Unavailable [phone] Sukhwinder Uribe MD Unavailable [phone] Shay Guillermo MD Unavailable [phone] Marsha Landis RN Unavailable Unavailab le Reason for Visit * Episode Based Medications (Routine) - Authorized Specialty Diagnoses / Procedures Referred By Saleem narvaez Referred To Contact Oncology Diagnoses Prostate cancer (HCC) Procedures DC LEUPROLIDE ACETATE SUSPNSION Leuprolide Every 3 Months - Prostate Gautma Cope MD [address] [facility] [address] [place] [address] Phone: tel: fax: [facility] [address] [facility] [address] [place] [address] Referral ID Status Reason Start Date Expiration Date V isits Requested Visits Authorized [id number] Authorized 09/06/2018 07/11/2024 1 50 Encounter Details Date Type Department Care Team (Late st Contact Info) Description 12/13/2018 10:15 AM CDT Office Visit [facility] [address] [place] [address] 7th [place] [address] [place] [id number] Gautam Cope MD [address] [facility] [address] [place] [address] Prostate cancer (CMS/HCC) Social History Tobacco Use [...] on file 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 Gender Identity Not on file Sexual Orientation Not on file documented as of this encounter Last Filed Vital Signs Vital Sign Reading Time Taken Comments Blood Pressure 150/74 12/13/2018 9:57 AM CDT Pulse 65 12/13/2018 9:57 AM CDT Temperature 36.7 ??C (98.1 ??F) 12/13/2018 9:57 AM CD T Respiratory Rate 18 12/13/2018 9:57 AM CDT Oxygen Saturation 97% 12/13/2018 9:57 AM CDT Inhaled Oxygen Concentration - - Weight 100.2 kg (220 lb 12.8 oz) 12/13/2018 9:57 AM CDT Height - - Body Mass Index 31.68 11/17/2018 3:04 PM CDT documented in this encounter Progress Notes * Gautam Cope MD - 12/13/2018 12:00 AM CDT PATIENT NAME: DAVID DREW : 1940 [place]: 12/13/2018 Mr. Drew is a 78-year-old with metastatic prostate cancer. In 2000, he was noted to have a PSAof 5.5, leading to a biopsy showing Viviana 3+4 disease. He was treated with a radical prostatectomy in June 1999, showing Viviana 4+3 disease with extracapsular extension and positive margin, but negative lymph nodes. He received adjuvant radiation therapy, finishing in November 1999. By June 2012, his PSA was detectable and starting to rise. By July 2018, it was up to the double digits, and a pelvic MRI scan in August 2018 showed local disease, and a bone scan showed involvement at L2. 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 He has had occasional steroid injections to that area. He has also had some leg cramps and had been placed on gabapentin for this. With evidence of metastatic disease, he was started on Casodex, followed by Lupron starting at the endof August. He has tolerated this quite well. His hot flashes have been notable, and sometimes they appear more and sometimes less. Additionally, with the evidence of metastatic disease, although not high level of disease, we decided to go ahead and start him on abiraterone, which was begun in October. Hehas tolerated it quite well. He came in last week to have his labs drawn but forgot to see us and forgot to get his Lupron injection. He has been noticeably more forgetful. Other comorbidities include chronic kidney disease, paroxysmal atrial fibrillation, diabetes, hypertension, and hyperlipidemia. He denies any new pain. He denies any change in urination. All other review of systems are negative. PHYSICAL EXAMINATION: Vital Signs: Shows a male whose weight is 100.2 kg, which is up 2 kg since we last seen. His blood pressure is 150/74, pulse 65. His O2 saturation is 97%. Performance Status: His performance status has slipped to 80%. Nodes: He has no palpable cervical adenopathy. Lungs: Expanded volumes, but clear to auscultation and percussion. Cardiac: Shows an S1 and S2, with an early systolic murmur and occasional extra beats. Abdomen: His abdominal exam shows no hepatosplenomegaly or palpable masses. Bowel sounds are present. Extremities: Trace bilateral edema. Neurological: Nonfocal. LABORATORY DATA: Laboratories, which were done last week, show a hemoglobin 11.9, white count 11,100, and platelet count 380,000. Chemistries are notable for slightly elevated potassium of 5.5, creatinine 1.57, and normal liver function tests. His PSA drawn last week was down to 0.28. At the start of hormonal therapy, it was 11.5. IMAGING DATA: His last set of scans were done in early October. ASSESSMENT AND PLAN: Metastatic prostate cancer. The patient is continuing on Lupron, abiraterone, and prednisone. He has no localizing pain, but he does have the pain radiating down his legs consistent with degenerativejoint disease. We will see him back again in 3 months, and plan to repeat a bone scan and CT scan, along with a bone density, 6 months from now. ELECTRONICALLY SIGNED - 12/13/2018 03:49 PM Gautam Cope M.D. boxing machine operator GLORIA/lul cc: MD Nena [place] [address] MIKE LERNER M.D. [facility] [address] [facility], [address] [place] [address] / documented in this encounter Plan of Treatment Not on file documented as of this encounter Goals Goal Patient Goal Type Associated Problems Recent Progress Patient-Stated? Author CCM Chronic Pain Care Plan Chronic Care Management No change(03/23 1:47 PM FORMING YARDAGE CONTROL OPERATOR) No Ingrid Oden RN Note: Problem: [...] 019 documented in this encounter Care Teams Completion Supervisor Relationship Specialty Start Date End Date Mike Lerner MD [address] [facility] [address] [place] [address] PCP - General 07/10/16 [place] [address] [place] [address] [address] [place], [place] [id number] Medical Oncologist/Machine Fancy Stitcher Medical Oncology 08/18/18 Tramaine Roe MD [address] [facility] [address] [place], [place] [id number] Referring Physician Urology 08/18/18 Sukhwinder Uribe MD [address] [facility] [address] [place] [address] Consulting Physician Urology 08/18/18 Shay Guillermo MD [address] [facility] [address] [place] [address] Referring Physician Urology 08/18/18 Marsha Landis RN Registered Nurse 11/17/18 documented as of this encounter
--- OUTSIDE RECORDS SUMMARY | 2024-03-31 05:01 | XMS_ITS | Encounter Summary ---
Author Organization 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 Author ZAK General Goal - Patient is knowledgeable about condition when worsening and how to respond ACO Care Management No change(09/06 4:37 PM CDT) No Ielne Fragoso RN Note: Problem: Knowledge deficit related [...] Management No change(03/23 1:47 PM DIRECTOR OF NURSES REGISTRY) No Ingrid Oden, SHEA Note: Problem: Chronic Pain Goals: 1. Minimize further functional decline 2. Maximize quality of life 3. Control pain Strategies: - Activity/exercise program recommendation - Conservative stepwise pain medicine strategy with multi-disciplinary approach - Recommend healthy lifestyle strategies and compensatory methods as needed documented as of this encounter Visit Diagnoses Not on filedocumented in this encounter Care Teams Outcomes Specialist Relationship Specialty Start Date End Date Kraig Ching MD [address] [facility] [address] [place] [address] PCP - General 07/10/16 Gautam Cope MD [address] [facility] [address] [place] [address] Medical Oncologist/Stock Letterer Medical Oncology 08/18/18 Tramaine Roe MD [address] [facility] [address] [place] [address] Referring Physician Urology 08/18/18 Sukhwinder Uribe MD [address] [facility] [address] [place] [address] Consulting Physician Urology 08/18/18 Shay Guillermo MD [address] [facility] [address] [place] [address] Referring Physician Urology 08/18/18 Marsha Landis RN Registered Nurse 11/17/18 Ilene Fragoso, RN [address] [place] [address] [address] [place] [address] Supervisor Lace Tearing 12/23/18 11/01/19 documented as of this encounter
--- OUTSIDE RECORDS SUMMARY | 2024-03-31 05:01 | XMS_ITS | Encounter Summary ---
Author Organization [facility] Address [address] [place] [address] Care Team Providers Care Ballaster Name Role Phone Kraig Ching MD Primary Care Provider [phone] Gautam Cope MD Unavailable Tramaine Roe MD Unavailable [phone] Sukhwinder Uribe MD Unavailable [phone] Shay Guillermo MD Unavailable [phone] Marsha Landis RN Unavailable Unavailab Ilene Kaur RN Unavailable [phone] Reason for Referral * Diagnostic Imaging (Routine) - Closed Specialty Diagnoses / Procedures Referred By Contac t Referred To Contact Diagnoses Pain management Procedures FL Fluoroscopy < 1 Hour (Statistical Only) Maru Arreola MD PhD Phone: tel: fax: [address] [address] Referral ID Status Reason Start Date Expiration Date Visits Re quested Visits Authorized [id number] Closed 01/17/2019 07/28/2020 1 1 Reason for Visit * Diagnostic Imaging (Routine) - Closed Specialty Diagnoses / Procedures Referred By Contac t Referred To Contact Diagnoses Pain management Procedures FL Fluoroscopy < 1 Hour (Statistical Only) Maru Arreola MD PhD Phone: tel: fax: [place] [address] [facility] [place] [address] Referral ID Status Reason Start Date Expiration Date Visits Re quested Visits Authorized [id number] Closed 01/17/2019 07/28/2020 1 1 Encounter Details Date Type Department Care Team (Latest Contact Info) Description 01/17/2019 7:34 AM CDT - 01/17/2019 1:56 PM CDT Hospital Encounter [facility] [address] [place], [place] [id number] Maru Arreola MD PhD [address] [facility] [id number] [place] [address] Pain management Discharge Disposition: Discharge to home [...] on file Legal Sex Male 4:[address] Gender Identity Not on file Sexual Orientation [...] mouth daily. 30 tablet 11 03/07/2018 3 BASAGLWENDI POOLEPEN U-100 INSULIN 100 unit/mL (3 mL) insulin pen INJECT 10 UNITS UNDER THE SKIN DAILY UTD 11 11/15/2018 0 BD ULTRA-FINE SHORT PEN NEEDLE [...] a day 60 tablet 11 10/20/2018 0 AL Z 0.004 % drops INT 1 DROP [...] to monitor diabetes and kidney status, etc. [facility] Chronic Pain Care Plan Chronic Care Management No change(03/23 1:[address]) No Ingrid Oden, RN Note: Problem: Chronic [...] ONLY) Schedule Routine, Read Routine (OP Routine) 01/17/2019 3:30 PM CDT Pain management documented in this encounter Results * FL Fluoroscopy < 1 Hour (Statistical Only) (01/17/2019 3:30 PM CDT) Narrative [facility] - 01/17/2019 3:49 PM CDT The images from this study are not interpreted by Radiology. ??Please refer to the physician's procedure / OR operative note. us Maru Arreola MD PhD IMG FLUOROSCOPY PROCEDUR ES Final Result [facility] documented in this encounter Visit Diagnoses Diagnosis Pain management documented in this encounter Care Teams Ballaster Relationship Specialty Start Date End Date Kraig Ching MD [address] [place] [address] PCP - General 07/10/16 Gautam Cope MD [address] [place] [address] Medical Oncologist/Printer Helper Medical Oncology 08/18/18 Tramaine Roe MD [address] [place] [address] Referring Physician Urology 08/18/18 Sukhwinder Uribe MD [address] [place] [address] Consulting Physician Urology 08/18/18 Shay Guillermo MD [address] [place] [address] Referring Physician Urology 08/18/18 Marsha Landis, RN Registered Nurse 11/17/18 Ilene Fragoso, RN [address] [place] [address] Organ Pipe Finisher 12/23/18 11/01/19 documented as of this encounter
--- OUTSIDE RECORDS SUMMARY | 2024-03-31 05:01 | XMS_ITS | Encounter Summary ---
Author Organization [facility] Address [address] [place] [address] Phone Care Team Providers Care Vascular Tech Name Role Phone Kraig Ching MD Primary Care Provider Gautam Cope MD Unavailable Tramaine Roe MD Unavailable [phone] Sukhwinder Uribe MD Unavailable [phone] Shay Guillermo MD Unavailable [phone] Marsha Landis RN Unavailable Unavailab Ilene Kaur RN Unavailable [phone] Reason for Visit * Reason Onset Date Comments other 02/24/2019 Questioning if c ould obtain 2 month supply of Zytica and Prednisone at upcoming visit to reduce travel Encounter Details Date Type Department Care Team (Late st Contact Info) Description 02/24/2019 Telephone [facility] [address] [facility] 7th [place] [address] [place] [address] Gautam Cope MD [address] [facility] [address] [place] [address] other (Questioning if could obtain 2 month supply of Zytica and Prednisone at upcoming visit to reduce travel) Social History Tobacco Use Types Packs/Day Years [...] on file 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 Patient's next scheduled visit 03/07/19. Please advise and notify patient if 2 month supply of medications possible. Thank you Ilene Fragoso RN, BSN, MSN Attendant Child Activity, [facility] [email or web address] [phone] HOIST OPERATOR documented in this encounter Plan of [...] Chronic Care Management No change(03/23 1:47 PM PIT HOIST OPERATOR) No Ingrid Oden RN Note: Problem: Chronic Pain Goals: 1. Minimize further functional decline 2. Maximize quality of life 3. Control pain Strategies: - Activity/exercise program recommendation - Conservative stepwise pain medicine strategy with multi-disciplinary approach - Recommend healthy lifestyle strategies and compensatory methods as needed documented as of this encounter Visit Diagnoses Not on filedocumented in this encounter Care Teams Vascular Tech Relationship Specialty Start Date End Date Kraig Ching MD [address] [facility] [address] [place] [address] PCP - General 07/10/16 Gautam Cope MD [address] [facility] [address] [place] [address] Medical Oncologist/Social Economist Medical Oncology 08/18/18 [place] [address] [place] [address] [address] [place] [address] Referring Physician Urology 08/18/18 Sukhwinder Uribe MD [address] [facility] [address] [place] [address] Consulting Physician Urology 08/18/18 [place] [address] [place] [address] [address] [place] [address] Referring Physician Urology 08/18/18 Marsha Landis, RN Registered Nurse 11/17/18 Ilene Fragoso, RN [address] [place] [address] [address] [place] [address] Attendant Child Activity 12/23/18 11/01/19 documented as of this encounter
--- OUTSIDE RECORDS SUMMARY | 2024-03-31 05:01 | XMS_ITS | Encounter Summary ---
Author Organization [facility] Address [address] [place] [address] Phone Care Team Providers Care Office Worker Name Role Phone Kraig Ching MD Primary Care Provider [phone] Gautam Cope MD Unavailable Tramaine Roe MD Unavailable [phone] Sukhwinder Uribe MD Unavailable [phone] Shay Guillermo MD Unavailable [phone] Marsha Landis RN Unavailable Unavailab le Encounter Details Date Type Department Care Team (Late st Contact Info) Description 12/13/2018 Orders Only [facility] Oncology [address] [facility] 7th [place] [address] [place] [address] Muna Saleem RN Social History Tobacco Use [...] file 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 Author CCM Chronic Pain Care Plan Chronic Care Management No change(03/23 1:[address] LOCKSMITH) No Ingrid Oden, SHEA Note: Problem: Chronic Pain Goals: 1. Minimize further functional decline 2. Maximize quality of life 3. Control pain Strategies: - Activity/exercise program recommendation - Conservative stepwise pain medicine strategy with multi-disciplinary approach - Recommend healthy lifestyle strategies and compensatory methods as needed documented as of this encounter Visit Diagnoses Not on filedocumented in this encounter Care Teams Office Worker Relationship Specialty Start Date End Date Kraig Ching MD [address] [place] [address] PCP - General 07/10/16 Gautam Cope MD [address] [place] [address] Medical Oncologist/Hourly Team Members Medical Oncology 08/18/18 Tramaine Roe MD [address] [place] [address] Referring Physician Urology 08/18/18 Sukhwinder Uribe MD [address] [place] [address] Consulting Physician Urology 08/18/18 Shay Guillermo MD [address] [place] [address] Referring Physician Urology 08/18/18 Marsha Landis, RN Registered Nurse 11/17/18 documented as of this encounter
--- OUTSIDE RECORDS SUMMARY | 2024-03-31 05:01 | XMS_ITS | Encounter Summary ---
Author Organization [facility] Address [address] [facility] [address] [place] [address] Care Team Providers Care Cutting Torch Operator Name Role Phone Kraig Ching MD Primary Care Provider Gautam Cope MD Unavailable Tramaine Roe MD Unavailable [phone] Sukhwinder Uribe MD Unavailable Shay Guillermo MD Unavailable Marsha Landis RN Unavailable Unavailab Ilene aKur RN Unavailable Encounter Details Date Type Department Care Team (Late st Contact Info) Description 01/18/2019 Orders Only [facility] [address] [facility] [address] [place] [address] Katherine Del Rio PA [address] [facility] [address] [place], [place] [id number] Abnormal laboratory test result (Primary Dx) Social History Tobacco Use Types [...] on file 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 [facility] Chronic Pain Care Plan Chronic Care Management No change(03/23 1:47 PM ADMINISTRATIVE ASSISTANT COORDINATOR) No Ingrid Oden, SHEA Note: Problem: Chronic Pain Goals: 1. Minimize further functional decline 2. Maximize quality of life 3. Control pain Strategies: - Activity/exercise program recommendation - Conservative stepwise pain medicine strategy with multi-disciplinary approach - Recommend healthy lifestyle strategies and compensatory methods as needed documented as of this encounter Visit Diagnoses Diagnosis Abnormal laboratory test result- Primary Other abnormal clinical finding documented in this encounter Care Teams Cutting Torch Operator Relationship Specialty Start Date End Date Kraig Ching MD [address] [facility] [address] [place] [address] PCP - General 07/10/16 Gautam Cope MD [address] [facility] [address] [place] [address] Medical Oncologist/Cage Supervisor Medical Oncology 08/18/18 Tramaine Roe MD [address] [facility] [address] [place] [address] Referring Physician Urology 08/18/18 Sukhwinder Uribe MD [address] [facility] [address] [place] [address] Consulting Physician Urology 08/18/18 Shay Guillermo MD [address] [facility] [address] [place] [address] Referring Physician Urology 08/18/18 Marsha Landis, RN Registered Nurse 11/17/18 Ilene Fragoso, SHEA [address] [facility] [address] [place] [address] Retail Sales Manager 12/23/18 11/01/19 documented as of this encounter
--- OUTSIDE RECORDS SUMMARY | 2024-03-31 05:01 | XMS_ITS | Encounter Summary ---
Author Organization [facility] Address [address] [place] [address] Phone Care Team Providers Care Case Packer Name Role Phone Kraig Ching MD Primary Care Provider [phone] Gautam Cope MD Unavailable Tramaine Roe MD Unavailable [phone] Sukhwinder Uribe MD Unavailable Shay Guillermo MD Unavailable [phone] Marsha Landis RN Unavailable Unavailab Ilene Kaur RN Unavailable [phone] Encounter Details Date Type Department Care Team (Late st Contact Info) Description 02/16/2019 Orders Only [facility] Nephrology [address] [facility] Advanced Medicine 5th [place] [address] [place] [address] Lin Guerrero MD [address] [facility] [address] [place], [place] [id number] CRD (chronic renal disease), stage III (CMS/HCC) (Primary Dx); Essential hypertension Social History Tobacco Use Types Packs/Day Years [...] on file 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 [facility] Chronic Pain Care Plan Chronic Care Management No change(03/23 1:47 PM PARQUETRY FLOOR LAYER) No Ingrid Oden, RN Note: Problem: Chronic Pain Goals: 1. Minimize further functional decline 2. Maximize quality of life 3. Control pain Strategies: - Activity/exercise program recommendation - Conservative stepwise pain medicine strategy with multi-disciplinary approach - Recommend healthy lifestyle strategies and compensatory methods as needed documented as of this encounter Results * (ABNORMAL) CBC with auto differential (02/17/2019 3:07 PM PARQUETRY FLOOR LAYER) [facility] WBC 11.2(H) 3.8 - 9.9 K/cumm [facility] Hgb 12.0(L) 13.0 - 17.5 g/dL [facility] Hct 36.7(L) 38.9 - 50.3 % [facility] Plt 338 150 - 400 K/cumm [facility] MPV 9.6 9.1 - 12.[address] [facility] RBC 4.00(L) 4.30 - 5.80 M/cumm [facility] MCV 91.8 81.3 - 96.[address] [facility] MCH 30.0 27.1 - 33.[address] [facility] MCHC 32.7 32.3 - 35.7 g/dL [facility] RDW CV 13.9 11.1 - 14.9 % [facility] RDW SD 46.9 35.7 - 48.[address] [facility] NRBC abs 0.00 0.00 - 0.01 K/cumm [facility] Blood specimen (specimen) 02/17/2019 3:07 PM PARQUETRY FLOOR LAYER 02/17/2019 3:16 PM PARQUETRY FLOOR LAYER us Lin Guerrero MD LAB BLOOD ORDERABLES Final Resul t [facility] Department [place] [address] * (ABNORMAL) Renal function panel (02/17/2019 3:07 PM PARQUETRY FLOOR LAYER) [facility] Sodium 141 135 - 145 mmol/L [facility] Potassium, pl 4.7 3.3 - 4.9 mmol/L [facility] Chloride 103 97 - 110 mmol/L [facility] CO2 28 22 - 32 mmol/L [facility] Anion gap 10 2 - 15 mmol/L [facility] BUN 34(H) 8 - 25 mg/dL [facility] Creatinine 1.99(H) 0.80 - 1.30 mg/dL [facility] Glucose 202(H) 70 - 199 mg/dL [facility] Comment: Interpretive Data Fasting glucose [...] 2017. Calcium 9.1 8.5 - 10.3 mg/dL [facility] Phosphorus, pl 3.1 2.3 - 4.5 mg/dL [facility] Albumin 4.1 3.5 - 5.0 g/dL [facility] Blood specimen (specimen) 02/17/2019 3:07 PM PARQUETRY FLOOR LAYER 02/17/2019 3:16 PM PARQUETRY FLOOR LAYER us Lin Guerrero MD LAB BLOOD ORDERABLES Final Resul t [facility] Department [place] [address] documented in this encounter Visit Diagnoses Diagnosis CRD (chronic renal disease), stage III (HCC)- Primary Chronic kidney disease, Stage III (moderate) Essential hypertension Unspecified essential hypertension documented in this encounter Care Teams Case Packer Relationship Specialty Start Date End Date Kraig Ching MD [address] [facility] [address] [place] [address] PCP - General 07/10/16 Gautam Cope MD [address] [facility] [address] [place] [address] Medical Oncologist/Construction Driver Medical Oncology 08/18/18 Tramaine Roe MD [address] [facility] [address] [place] [address] Referring Physician Urology 08/18/18 Sukhwinder Uribe MD [address] [facility] [address] [place] [address] Consulting Physician Urology 08/18/18 Shay Guillermo MD [address] [facility] [address] [place] [address] Referring Physician Urology 08/18/18 Marsha Landis RN Registered Nurse 11/17/18 Ilene Fragoso, RN [address] [place] [address] [address] [place] [address] Transmitter Tester 12/23/18 11/01/19 documented as of this encounter
--- OUTSIDE RECORDS SUMMARY | 2024-03-31 05:01 | XMS_ITS | Encounter Summary ---
Author Organization [facility] Healthcare Address [address] [place] [address] Care Team Providers Care Twitchell Operator Name Role Phone Kraig Ching MD Primary Care Provider [phone] Gautam Cope MD Unavailable Tramaine Roe MD Unavailable [phone] Sukhwinder Uribe MD Unavailable [phone] Shay Guillermo MD Unavailable [phone] Marsha Landis RN Unavailable Unavailab Ilene Kaur RN Unavailable [phone] Encounter Details Date Type Department Care Team (Late st Contact Info) Description 01/17/2019 6:10 PM CDT Lab [address] [address] Social History Tobacco Use Types Packs/Day Years [...] on file 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 [facility] Chronic Pain Care Plan Chronic Care Management No change(03/23 1:47 PM ANIMAL CARE ATTENDANT) No Ingrid Oden, SHEA Note: Problem: Chronic Pain Goals: 1. Minimize further functional decline 2. Maximize quality of life 3. Control pain Strategies: - Activity/exercise program recommendation - Conservative stepwise pain medicine strategy with multi-disciplinary approach - Recommend healthy lifestyle strategies and compensatory methods as needed documented as of this encounter Visit Diagnoses Not on filedocumented in this encounter Care Teams Twitchell Operator Relationship Specialty Start Date End Date Kraig Ching MD [address] [facility] [address] [place] [address] PCP - General 07/10/16 Gautam Cope MD [address] [facility] [address] [place] [address] Medical Oncologist/Compression Molding Machine Setter Medical Oncology 08/18/18 Tramaine Roe MD [address] [facility] [address] [place] [address] Referring Physician Urology 08/18/18 Sukhwinder Uribe MD [address] [facility] [address] [place] [address] Consulting Physician Urology 08/18/18 Shay Guillermo MD [address] [facility] [address] [place] [address] Referring Physician Urology 08/18/18 Marsha Landis, RN Registered Nurse 11/17/18 Ilene Fragoso, RN [address] [facility] [address] [place] [address] Heel Boom Operator 12/23/18 11/01/19 documented as of this encounter
--- OUTSIDE RECORDS SUMMARY | 2024-03-31 05:01 | XMS_ITS | Encounter Summary ---
Author Organization [facility] Address [address] [place] [address] Phone Care Team Providers Care Banjo Repair Person Name Role Phone Kraig Ching MD Primary Care Provider [phone] Gautam Cope MD Unavailable Tramaine Roe MD Unavailable [phone] Sukhwinder Uribe MD Unavailable [phone] Shay Guillermo MD Unavailable Marsha Landis RN Unavailable Unavailab le Reason for Visit * Reason Onset Date Comments pain after injection 12/16/2018 Encounter Details Date Type Department Care Team (Late st Contact Info) Description 12/16/2018 Documentation [facility] Oncology [address] [facility] Advanced Medicine 7th [place] [address] [place] [address] Muna Saleem RN pain after injection Social History Tobacco Use Types Packs/Day Years [...] on file 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 The more he moved around the house the better it got. His had to help him put on slacks, socks, shoes. It was still very painful by thetime he went to bed that night, but better than that am. Next day, the pain was a little less. Its b een less each day that goes by. He just thought we should know. I told him a nerve got touched by the needle. documented in this encounter Plan of Treatment Not on file documented as of this encounter Goals Goal Patient Goal Type Associated Problems Recent Progress Patient-Stated? Author CCM Chronic Pain Care Plan Chronic Care Management No change(03/23 1:47 PM CMA) No Ingrid Oden RN Note: Problem: Chronic Pain Goals: 1. Minimize further functional decline 2. Maximize quality of life 3. Control pain Strategies: - Activity/exercise program recommendation - Conservative stepwise pain medicine strategy with multi-disciplinary approach - Recommend healthy lifestyle strategies and compensatory methods as needed documented as of this encounter Visit Diagnoses Not on filedocumented in this encounter Care Teams Banjo Repair Person Relationship Specialty Start Date End Date Kraig Ching MD [address] [facility] [address] [place] [address] PCP - General 07/10/16 Gautam Cope MD [address] [facility] [address] [place] [address] Medical Oncologist/Laborer Chemical Processing Medical Oncology 08/18/18 Tramaine Roe MD [address] [facility] [address] [place] [address] Referring Physician Urology 08/18/18 Sukhwinder Uribe MD [address] [facility] [address] [place] [address] Consulting Physician Urology 08/18/18 Shay Guillermo MD [address] [facility] [address] [place] [address] Referring Physician Urology 08/18/18 Marsha Landis, RN Registered Nurse 11/17/18 documented as of this encounter
--- OUTSIDE RECORDS SUMMARY | 2024-03-31 05:01 | XMS_ITS | Encounter Summary ---
Author Organization [facility] Healthcare Address [address] [place] [address] Care Team Providers Care Administrative Technician Name Role Phone Kraig Ching MD Primary Care Provider [phone] Gautam Cope MD Unavailable Tramaine Roe MD Unavailable [phone] Sukhwinder Uribe MD Unavailable Shay Guillermo MD Unavailable Marsha Landis RN Unavailable Unavailab le Encounter Details Date Type Department Care Team (Late st Contact Info) Description 11/17/2018 6:15 PM CDT Lab [address] [address] Social History Tobacco Use Types Packs/Day Years Used Date Smoking Tobacco: Former Smokeless Tobacco: Never Comments:Smoking History Pac ks/day: 10 Cigarettes Alcohol Use Standard Drinks/Week Comments Yes 0 (1 standard drink = 0.6 oz pur e alcohol) Occasional glass of wine. 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 Author CCM Chronic Pain Care Plan Chronic Care Management No change(03/23 1:47 PM CASE ASSEMBLER) No Ingrid Oden, RN Note: Problem: Chronic Pain Goals: 1. Minimize further functional decline 2. Maximize quality of life 3. Control pain Strategies: - Activity/exercise program recommendation - Conservative stepwise pain medicine strategy with multi-disciplinary approach - Recommend healthy lifestyle strategies and compensatory methods as needed documented as of this encounter Visit Diagnoses Not on filedocumented in this encounter Care Teams Administrative Technician Relationship Specialty Start Date End Date Kraig Ching MD [address] [place] [address] PCP - General 07/10/16 Gautam Cope MD [address] [place] [address] Medical Oncologist/Debarker Operator Medical Oncology 08/18/18 Tramaine Roe MD [address] [place] [address] Referring Physician Urology 08/18/18 Sukhwinder Uribe MD [address] [facility] [address] [place] [address] Consulting Physician Urology 08/18/18 Shay Guillermo MD [address] [facility] [place] [address] Referring Physician Urology 08/18/18 Marsha Landis, RN Registered Nurse 11/17/18 documented as of this encounter
--- OUTSIDE RECORDS SUMMARY | 2024-03-31 05:01 | XMS_ITS | Encounter Summary ---
Author Organization [facility] Address [address] [place] [address] Phone Care Team Providers Care Biological Chemist Name Role Phone Kraig Ching MD Primary Care Provider [phone] Gautam Cope MD Unavailable Tramaine Roe MD Unavailable [phone] Sukhwinder Uribe MD Unavailable [phone] Shay Guillermo MD Unavailable [phone] Marsha Landis RN Unavailable Unavailab Ilene Kaur RN Unavailable [phone] Encounter Details Date Type Department Care Team (Late st Contact Info) Description 03/01/2019 10:45 AM AVID EDITOR Office Visit [facility] Nephrology [facility] Advanced Medicine 5th [place] [address] [place] [address] Stage 3 chronic kidney disease (CMS/HCC) Social [...] on file Legal Sex Male 4:46 PM AVID EDITOR Gender Identity Not on file Sexual Orientation Not on file documented as of this encounter Last Filed Vital Signs Vital Sign Reading Time Taken Comments Blood Pressure 163/76 03/01/2019 11:22 AM AVID EDITOR Pulse 67 03/01/2019 11:22 AM AVID EDITOR Temperature 36.5 ??C (97.7 ??F) 03/01/2019 11:[address] Respiratory Rate - - Oxygen Saturation - - Inhaled Oxygen Concentration - - Weight 101.6 kg (224 lb) 03/01/2019 11:22 AM AVID EDITOR Height - - Body Mass Index 31.69 02/17/2019 1:58 PM AVID EDITOR documented in this encounter Patient Instructions * Patient Instructions* Marc Reynolds MD - 03/01/2019 10:45 AM AVID EDITOR Please increase your chlorthalidone to 25mg daily. Measure your blood pressure daily. EDITOR EDITOR documented in this encounter Progress Notes * Marc Reynolds MD - 03/01/2019 10:45 AM CST NEPHROLOGY SUBSEQUENT OFFICE VISIT NOTE NAME: DAVID DREW DATE OF : 1940 DATE OF VISIT: 03/01/2019 MEDICAL PROBLEM LIST: 1. CKD stage 3 likely secondary to diabetes mellitus and hypertension 2. COPD 3. Paroxysmal Atrial Fibrillation, Xarelto on hold 4. Type II diabetes mellitus, not on insulin, last A1C 7.3 in 08/2017 5. Essential Hypertension 6. Dyslipidemia 7. Pancreatitis in 1999 8. Duodenal Ulcer, EGD 10/2017 9. Prostate Cancer in 1999, [id number], status post radical prostatectomy with subsequent external beam radiation therapy. Now with rising PSA and newly discovered spinal metastasis, meeting with oncology on 09/06/2018 REASON FOR OFFICE VISIT: Follow up for CKD INTERVAL HISTORY: Mr. Drew is a 78 year-old male with a history of stage 3 chronic kidney disease likely secondary to diabetes and hypertension who is here for a follow up visit. He was last seen in clinic on 08/2018. He reports that he has been doing generally well since our last visit. He reports no recent illnesses. No fevers, chills, nausea, vomiting, chest pain, shortness of breath, edema, or urinary symptoms. He was taken off lisinopril in December due to hyperkalemia. He reports that his blood pressures have been more difficult to control since then. He is current on Diltiazem 120mg and chlorthalidone 12.5mg daily. ?? REVIEW OF SYSTEMS: All other systems are negative. MEDICATIONS: Medication Sig ??? diltiaZEM (CARDIZEM) 120 mg tablet TAKE 1 TABLET BY MOUTH DAILY ??? metFORMIN (GLUCOPHAGE) 500 mg tablet Take 1 tablet (500 mg total) by mouth 2 (two) times a day with meals. ??? pantoprazole DR (PROTONIX) 40 mg EC tablet Take 1 tablet (40 mg total) by mouth daily. ??? pravastatin (PRAVACHOL) 20 mg tablet Take 1 tablet (20 mg total) by mouth daily. ??? SITagliptin (JANUVIA) 25 mg tablet Take 1 tablet (25 mg total) by mouth daily. ??? TRAVATAN Z 0.004 % drops INT 1 DROP INTO OU QHS Chlorthalidone 12.5mg Take 1 tablet by mouth daily ??? aspirin 81 mg tablet Take 1 tablet (81 mg total) by mouth daily. PHYSICAL EXAM GEN: A very pleasant male in no apparent distress BP 163/76 (BP Location: Left arm, Patient Position: Sitting) Pulse 67 Temp 36.5 ??C (97.7 ??F) (Oral) Wt 101.6 kg (224 lb) BMI 31.69 kg/m?? HENT: Mucus membranes pink and moist. Oropharynx clear. EYES: Sclera anicteric CVS: S1 S2 normal, no murmurs, rub or gallop. No LE edema. LUNGS: Clear to auscultation bilaterally ABD: Soft, non-tender, non-distended, bowel sounds normal. No masses. SKIN: No rash INSURANCE COMPLIANCE ANALYST: Alert and oriented x3. No focal motor deficits PSYCH: Pleasant, cooperative, in no apparent distress. MSK: No joint swelling or tenderness LABORATORY DATA Sodium Date Value Ref Range Status 02/17/2019 141 135 - 145 mmol/L Final 01/17/2019 141 135 - 145 mmol/L Final 12/06/2018 140 135 - 145 mmol/L Final Potassium, pl Date Value Ref Range Status 02/17/2019 4.7 3.3 - 4.9 mmol/L Final 01/17/2019 4.9 3.3 - 4.9 mmol/L Final 12/06/2018 5.5 (H) 3.3 - 4.9 mmol/L Final CO2 Date Value Ref Range Status 02/17/2019 28 22 - 32 mmol/L Final 01/17/2019 26 22 - 32 mmol/L Final 12/06/2018 28 22 - 32 mmol/L Final BUN Date Value Ref Range Status 02/17/2019 34 (H) 8 - 25 mg/dL Final 01/17/2019 43 (H) 8 - 25 mg/dL Final 12/06/2018 36 (H) 8 - 25 mg/dL Final Creatinine Date Value Ref Range Status 02/17/2019 1.99 (H) 0.80 - 1.30 mg/dL Final 01/17/2019 1.75 (H) 0.80 - 1.30 mg/dL Final 12/06/2018 1.57 (H) 0.80 - 1.30 mg/dL Final Albumin Date Value Ref Range Status 02/17/2019 4.1 3.5 - 5.0 g/dL Final 12/06/2018 4.1 3.5 - 5.0 g/dL Final 11/17/2018 4.4 3.5 - 5.0 g/dL Final Calcium Date Value Ref Range Status 02/17/2019 9.1 8.5 - 10.3 mg/dL Final 01/17/2019 9.3 8.5 - 10.3 mg/dL Final 12/06/2018 9.1 8.5 - 10.3 mg/dL Final Phosphorus, pl Date Value Ref Range Status 02/17/2019 3.1 2.3 - 4.5 mg/dL Final 08/15/2018 3.3 2.3 - 4.5 mg/dL Final 03/07/2018 3.1 2.3 - 4.5 mg/dL Final PTH Date Value Ref Range Status 11/22/2017 32 15 - 65 pg/mL Final Hgb Date Value Ref Range Status 02/17/2019 12.0 (L) 13.0 - 17.5 g/dL Final 12/06/2018 11.9 (L) 13.8 - 17.2 g/dL Final Comment: Testing performed by: [facility], [address] [place] [id number] 11/17/2018 12.6 (L) 13.0 - 17.5 g/dL Final 10/18/2018: HbA1c 8.5 Urine dipstick today: Specific gravity 1.020, pH 6.0, no blood, no protein ASSESSMENT AND PLAN: 1. Chronic kidney disease, stage 3: Creatinine is slightly worse than his previous baseline. This may be a result of poorly controlled HTN and elevated blood sugars. We discussed the importance of improved blood pressure and glycemic control. He will continue to avoid NSAIDs. We will reassess renal function prior to the next visit. ?? 2. Hypertension: Suboptimally controlled. We will increase chlorthalidone to 25mg daily. We may notbe able to uptitrate his lisinopril further in the setting of previous hyperkalemia. ?? 3. Anemia of CKD: Hb 12.0, at goal ?? 4. Secondary hyperparathyroidism: We will repeat vitamin D and iPTH prior to next visit ? DISPOSITION: The patient will return follow up in 6 months with labs. [facility] Nephrology Cosigned by Lin Guerrero MD at 04/08/2019 12:04 AM AVID EDITOR EDITOR EDITOR Associated attestation - Lin Guerrero MD - 04/08/2019 12:04 AM AVID EDITOR I have seen and examined the patient on 03/01/2019. I agree with the findings and plan [...] to monitor diabetes and kidney status, etc. [facility] Chronic Pain Care Plan Chronic Care Management No change(03/23 1:47 PM AVID EDITOR) No Ingrid Oden RN Note: Problem: Chronic Pain Goals: 1. Minimize further functional decline 2. Maximize quality of life 3. Control pain Strategies: - Activity/exercise program recommendation - Conservative stepwise pain medicine strategy with multi-disciplinary approach - Recommend healthy lifestyle strategies and compensatory methods as needed documented as of this encounter Visit Diagnoses Diagnosis Stage 3 chronic kidney disease (HCC) documented in this encounter Care Teams Biological Chemist Relationship Specialty Start Date End Date Kraig Ching MD [address] [facility] [address] [place] [address] PCP - General 07/10/16 Gautam Cope MD [address] [facility] [address] [place], [place] [id number] Medical Oncologist/Wallpaper Consultant Medical Oncology 08/18/18 Tramaine Roe MD [address] [facility] [address] [place] [address] Referring Physician Urology 08/18/18 Sukhwinder Uribe MD [address] [facility] [address] [place] [address] Consulting Physician Urology 08/18/18 Shay Guillermo MD [address] [facility] [address] [place] [address] Referring Physician Urology 08/18/18 Marsha Landis RN Registered Nurse 11/17/18 Ilene Fragoso, RN [address] [place] [address] [address] [place] [address] Mussel Farmer 12/23/18 11/01/19 documented as of this encounter
--- OUTSIDE RECORDS SUMMARY | 2024-03-31 05:01 | XMS_ITS | Encounter Summary ---
Author Organization [facility] Facility Care Team Providers Care Building Analyst/Supervisor Name Role Phone Kraig Ching MD Primary Care Provider [phone] Gautam Cope MD Unavailable Tramaine Roe MD Unavailable [phone] Sukhwinder Uribe MD Unavailable [phone] Shay Guillermo MD Unavailable [phone] Marsha Landis RN Unavailable Unavailab Ilene Kaur RN Unavailable [phone] Encounter Details Date Type Department Care Team (Latest Contact Info) Description 02/17/2019 Travel Social History Tobacco Use Types Packs/Day [...] on file Legal Sex Male 4:46 PM 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 Minimize further functional decline 2. Maximize quality of life 3. Control pain Strategies: - Activity/exercise program recommendation - Conservative stepwise pain medicine strategy with multi-disciplinary approach - Recommend healthy lifestyle strategies and compensatory methods as needed documented as of this encounter Visit Diagnoses Not on filedocumented in this encounter Care Teams Building Analyst/Supervisor Relationship Specialty Start Date End Date Kraig Ching MD [address] [facility] [address] [place] [address] PCP - General 07/10/16 Gautam Cope MD [address] [facility] [address] [place] [address] Medical Oncologist/Health And Safety Instructor Medical Oncology 08/18/18 Tramaine Roe MD [address] [facility] [address] [place] [address] Referring Physician Urology 08/18/18 Sukhwinder Uribe MD [address] [facility] [address] [place] [address] Consulting Physician Urology 08/18/18 Shay Guillermo MD [address] [facility] [address] [place] [address] Referring Physician Urology 08/18/18 Marsha Landis RN Registered Nurse 11/17/18 Ilene Fragoso, RN [address] [place] [address] [address] [place] [address] Photographic Process Attendant 12/23/18 11/01/19 documented as of this encounter
--- OUTSIDE RECORDS SUMMARY | 2024-03-31 05:01 | XMS_ITS | Encounter Summary ---
Author Organization [facility] Address [address] [place] [address] Phone Care Team Providers Care Hiv Cts Specialist Name Role Phone Kraig Ching MD Primary Care Provider [phone] Gautam Cope MD Unavailable Tramaine Roe MD Unavailable [phone] Sukhwinder Uribe MD Unavailable Shay Guillermo MD Unavailable [phone] Marsha Landis RN Unavailable Unavailab le Encounter Details Date Type Department Care Team (Late st Contact Info) Description 12/06/2018 Orders Only [facility] Oncology [address] [facility] Advanced Medicine 7th [place] [address] [place] [address] Muna Saleem RN Prostate cancer ([facility]) Social History Tobacco Use Types [...] on file Legal Sex Male 4:46 PM GENERATION MANAGER Gender Identity Not on file Sexual Orientation Not on file documented as of this encounter Plan of Treatment Not on file documented as of this encounter Goals Goal Patient Goal Type Associated Problems Recent Progress Patient-Stated? Author CCM Chronic Pain Care Plan Chronic Care Management No change(03/23 1:47 PM GENERATION MANAGER) No Ingrid Oden, RN Note: Problem: [...] REQUEST 1 019 ONCBCN INJECTION APPOINTMENT REQUEST 06/2018 documented in this encounter Care Teams Hiv Cts Specialist Relationship Specialty Start Date End Date Kraig Ching MD [address] [place] [address] PCP - General 07/10/16 Gautam Cope MD [address] [place] [address] Medical Oncologist/Warranty Coordinator Medical Oncology 08/18/18 Tramaine Roe MD [address] [place] [address] Referring Physician Urology 08/18/18 Sukhwinder Uribe MD [address] [place] [address] Consulting Physician Urology 08/18/18 Shay Guillermo MD [address] [place] [address] Referring Physician Urology 08/18/18 Marsha Landis, RN Registered Nurse 11/17/18 documented as of this encounter
--- OUTSIDE RECORDS SUMMARY | 2024-03-31 05:02 | XMS_ITS | Encounter Summary ---
Author Organization [facility] Facility Care Team Providers Care Manufacturing Finance Manager Name Role Phone Kraig Ching MD Primary Care Provider [phone] Gautam Cope MD Unavailable Tramaine Roe MD Unavailable [phone] Sukhwinder Uribe MD Unavailable [phone] Shay Guillermo MD Unavailable [phone] Encounter Details Date Type Department Care Team (Latest Contact Info) Description 08/29/2018 Travel Social History Tobacco Use Types Packs/Day Years Used Date Smoking Tobacco: Former Smokeless Tobacco: Former Comments:Smoking History Pac ks/day: 10 Cigarettes Alcohol Use Standard Drinks/Week Comments No 0 (1 standard drink = 0.6 oz pur e alcohol) quit 09/2017 Sex and Gender Information Value Date Recorded Sex Assigned at Not on file 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 Gender Identity Not on file Sexual Orientation Not on file documented as of this encounter Plan of Treatment Not on file documented as of this encounter Visit Diagnoses Not on filedocumented in this encounter Care Teams Manufacturing Finance Manager Relationship Specialty Start Date End Date Kraig Ching MD [address] [place], [place] [id number] PCP - General 07/10/16 Gautam Cope MD [address] [place], [place] [id number] Medical Oncologist/Multiple Launch Rocket System Crewmember Medical Oncology 08/18/18 Tramaine Roe MD [address] [facility] [address] [place] [address] Referring Physician Urology 08/18/18 Sukhwinder Uribe MD [address] [facility] [address] [place] [address] Consulting Physician Urology 08/18/18 Shay Guillermo MD [address] [facility] [address] [place] [address] Referring Physician Urology 08/18/18 documented as of this encounter
--- OUTSIDE RECORDS SUMMARY | 2024-03-31 05:02 | XMS_ITS | Encounter Summary ---
Author Organization [facility] Address [address] [place] [address] Phone Care Team Providers Care Vice President Client Services Name Role Phone Mike Lerner MD Primary Care Provider [phone] Gautam Cope MD Unavailable Cruz Roe MD Unavailable [phone] Sukhwinder Uribe MD Unavailable Shay Guillermo MD Unavailable [phone] Encounter Details Date Type Department Care Team (Late st Contact Info) Description 10/18/2018 2:45 PM CDT Office Visit [facility] Oncology [address] [facility] Advanced Medicine 7th [place] [address] [place] [id number] Gautam Cope MD [address] [facility] [address] [place], [place] [id number] Prostate cancer (CMS/HCC) (Primary Dx) Social History [...] on file 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 Gender Identity Not on file Sexual Orientation Not on file documented as of this encounter Last Filed Vital Signs Vital Sign Reading Time Taken Comments Blood Pressure 118/64 10/18/2018 2:37 PM CDT Pulse 78 10/18/2018 2:37 PM CDT Temperature 37.1 ??C (98.8 ??F) 10/18/2018 2:37 PM CD T Respiratory Rate 20 10/18/2018 2:37 PM CDT Oxygen Saturation 96% 10/18/2018 2:37 PM CDT Inhaled Oxygen Concentration - - Weight 98.9 kg (218 lb) 10/18/2018 2:37 PM CDT Height - - Body Mass Index 31.28 09/15/2018 2:20 PM CDT documented in this encounter Progress Notes * Gautam Cope MD - 10/18/2018 12:00 AM CDT PATIENT NAME: DAVID DREW : 1940 [place]: 10/18/2018 Mr. Drew is a 77-year-old male with metastatic prostate cancer. He was diagnosed originally [id number] when he presented with a PSA of 5.5, and a biopsy showed Valley 3+4 disease. He was treated aradical prostatectomy in June 2007, showing Valley 4+3 disease, with extracapsular extension and positive margin but negative lymph nodes. He did receive adjuvant radiation therapy, finishing in November 1999. His PSA, by June 2012, was up to 0.2. By July 2018, it was up in the double digits. A pelvic MRI in August 2018 showed subtle focus that perhaps suggested some recurrent local disease, and abone scan clearly showed involvement in L2. 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 With evidence of metastatic cancer, we placed him on Lupron and Casodex, and started this at the end of August. He has tolerated this quite well. He does notice hot flashes, but they are not extensive. His lower back pain has not been extensive enough that he requires any additional pain medication at the current time. Comorbidities include chronic kidney disease, paroxysmal atrial fibrillation, diabetes, hypertension, and hyperlipidemia. All other review of systems are negative. PHYSICAL EXAMINATION: Vital Signs: Shows a male whose weight is 98.9 kg. Blood pressure 118/64, pulse 78. He is afebrile.O2 saturation 96%. Performance Status: His performance status is 90%. Nodes: He has no palpable adenopathy. Lungs: Clear to auscultation and percussion, with slightly expanded volumes. Cardiac: Shows an S1 and S2. No S3 or murmurs. He has an irregular rate and rhythm. Abdomen: His abdominal exam shows no hepatosplenomegaly or palpable masses. Musculoskeletal: He has no pain to percussion of his back at this time. Extremities: No edema. Neurological: Nonfocal. LABORATORY DATA: Laboratories today include a hemoglobin of 12.3, normal white count and platelet count. His PSA dropped to 1.28. IMAGING DATA: We did obtain a CT scan to complete the staging process, and this showed no disease in his chest orabdomen, but did confirm significant disease at L2. In retrospect, a disk bulge at L2 on the MRI scan was likely metastatic disease and not truly a disk bulge, but I am not sure of the etiology of pain because he does have degenerative joint disease in the area. ASSESSMENT AND PLAN: Metastatic prostate cancer. The patient is already on Lupron and has tolerated it quite well. His pain is under good control at this time. I do not think, given his adequate pain control, that he is a good candidate for radiation therapy at L2. Instead, we will plan to go ahead with abiraterone andprednisone. We will work on figuring out the cost of that and plan to start. We will see him again in November, when he is due for his next Lupron shot. We will probably consider another set of imagingscans in February. ELECTRONICALLY SIGNED - 10/18/2018 07:55 PM Gautam Cope M.D. telephone order supervisor GLORIA/lul cc: CRUZ ROE [place] [address] MIKE LERNER M.D. [place] [address] [facility], [address] [place] [address] / documented in this encounter Plan of Treatment Not on file documented as of this encounter Goals Goal Patient Goal Type Associated Problems Recent Progress Patient-Stated? Author CCM Chronic Pain Care Plan Chronic Care Management No change(03/23 1:47 PM ELECTRONICS TECH) No Ingrid Oden, SHEA Note: Problem: Chronic Pain Goals: 1. Minimize further functional decline 2. Maximize quality of life 3. Control pain Strategies: - Activity/exercise program recommendation - Conservative stepwise pain medicine strategy with multi-disciplinary approach - Recommend healthy lifestyle strategies and compensatory methods as needed documented as of this encounter Results * (ABNORMAL) Hemoglobin A1c (10/18/2018 1:53 PM CDT) Hgb A1C 8.5(H) 4.0 - 5.6 % [facility] Estimated Average Glucose 197 mg/dL [facility] Comment: The ADA recommends reporting an estimated Average Glucose (eAG) with all Hemoglobin A1c results using the equation derived from a study of 507 normal and diabetic adults. ??Minority populations were underrepresented and children were not included. ?? (Diabetes Care 31:8635-9902, 2007). ??The eAG is not equivalent to a fasting glucose. Blood specimen (specimen) 10/18/2018 1:53 PM CDT 10/18/2018 2:18 PM CDT us Gautam Cope MD LAB BLOOD ORDERABLES Final Resul t [facility] Department [place] [address] documented in this encounter Visit Diagnoses Diagnosis Prostate cancer (HCC)- Primary Malignant neoplasm of prostate documented in this encounter Orders Appointment Requests Count Last Ordered Date Fi rst Ordered Date ONCBCN CLINIC APPOINTMENT REQUEST 1 019 documented in this encounter Care Teams Vice President Client Services Relationship Specialty Start Date End Date Mike Lerner MD [address] [facility] [address] [place], [place] [id number] PCP - General 07/10/16 Gautam Cope MD [address] [facility] [address] [place] [address] Medical Oncologist/Manager Recovery Medical Oncology 08/18/18 Cruz Roe MD [address] [facility] [address] [place] [address] Referring Physician Urology 08/18/18 Sukhwinder Uribe MD [address] [facility] [address] [place] [address] Consulting Physician Urology 08/18/18 Shay Guillermo MD [address] [facility] [address] [place] [address] Referring Physician Urology 08/18/18 documented as of this encounter
--- OUTSIDE RECORDS SUMMARY | 2024-03-31 05:02 | XMS_ITS | Encounter Summary ---
Author Organization [facility] Address [address] [place] [address] Care Team Providers Care Medical Front Desk Specialist Name Role Phone Kraig Ching MD Primary Care Provider [phone] Gautam Cope MD Unavailable Tramaine Roe MD Unavailable Sukhwinder Uribe MD Unavailable [phone] Shay Guillermo MD Unavailable Reason for Visit * Reason Onset Date Comments CALL BACK 10/14/2018 Encounter Details Date Type Department Care Team (Late st Contact Info) Description 10/14/2018 Telephone [facility] [address] [facility] Advanced Medicine [address] [place], [place] [phone] Maru Arreola MD PhD [address] [facility] [phone] [place], [place] [phone] CALL BACK Social History Tobacco Use Types Packs/Day Years Used Date Smoking Tobacco: Former Smokeless Tobacco: Never Comments:Smoking History Pac ks/day: 10 Cigarettes Alcohol Use Standard Drinks/Week Comments Yes 0 (1 standard drink = 0.6 oz pur e alcohol) Occasional glass of wine. 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 Will call back. documented in this encounter Plan of Treatment Not on file documented as of this encounter Goals Goal Patient Goal Type Associated Problems Recent Progress Patient-Stated? Author CCM Chronic Pain Care Plan Chronic Care Management No change(03/23 1:47 PM PULP AND PAPER TESTER) No Ingrid Oden RN Note: Problem: Chronic Pain Goals: 1. Minimize further functional decline 2. Maximize quality of life 3. Control pain Strategies: - Activity/exercise program recommendation - Conservative stepwise pain medicine strategy with multi-disciplinary approach - Recommend healthy lifestyle strategies and compensatory methods as needed documented as of this encounter Visit Diagnoses Not on filedocumented in this encounter Care Teams Medical Front Desk Specialist Relationship Specialty Start Date End Date Kraig Ching MD [address] [place] [address] PCP - General 07/10/16 Gautam Cope MD [address] [place] [address] Medical Oncologist/Wrapper Stemmer Operator Medical Oncology 08/18/18 Tramaine Roe MD [address] [place] [address] Referring Physician Urology 08/18/18 Sukhwinder Uribe MD [address] [place] [address] Consulting Physician Urology 08/18/18 Shay Guillermo MD [address] [place] [address] Referring Physician Urology 08/18/18 documented as of this encounter
--- OUTSIDE RECORDS SUMMARY | 2024-03-31 05:02 | XMS_ITS | Encounter Summary ---
Author Organization [facility] Address [address] [place] [address] Care Team Providers Care Order Builder Loader Name Role Phone Kraig Ching MD Primary Care Provider [phone] Gautam Cope MD Unavailable Tramaine Roe MD Unavailable [phone] Sukhwinder Uribe MD Unavailable [phone] Shay Guillermo MD Unavailable [phone] Marsha Landis RN Unavailable Unavailab le Reason for Visit * Reason Comments Chronic Condition Encounter Details Date Type Department Care Team (Late st Contact Info) Description 11/17/2018 1:15 PM CDT Office Visit [facility] [address] [facility] [address] [place] [id number] Katherine Del Rio PA [address] [facility] [address] [place] [address] Type 2 diabetes mellitus with stage 3 chronic kidney disease, without long-term current use of insulin (CMS/HCC) (Primary Dx); Hyperlipidemia associated with type 2 diabetes mellitus (CMS/HCC); Hypertensive kidney disease with chronic kidney disease stage III (CMS/HCC); Prostate cancer (CMS/HCC); PAF (paroxysmal atrial fibrillation) (CMS/HCC); Spinal stenosis of lumbar region with neurogenic claudication; Immunization due; Obesity (BMI 30-39.9); BMI 31.0-31.9,adult Social History [...] on file 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 Gender Identity Not on file Sexual Orientation Not on file documented as of this encounter Last Filed Vital Signs Vital Sign Reading Time Taken Comments Blood Pressure 108/60 11/17/2018 1:01 PM CDT Pulse 70 11/17/2018 1:01 PM CDT Temperature 37 ??C (98.6 ??F) 11/17/2018 1:01 PM CDT Respiratory Rate 18 11/17/2018 1:01 PM CDT Oxygen Saturation 96% 11/17/2018 1:01 PM CDT Inhaled Oxygen Concentration - - Weight 98.9 kg (218 lb) 11/17/2018 1:01 PM CDT Height 177.8 cm (5' 10 ) 11/17/2018 1:01 PM CDT Body Mass Index 31.28 11/17/2018 1:01 PM CDT documented in this encounter Progress Notes * Katherine Del Rio PA - 11/17/2018 1:15 PM CDT Subjective/Objective Patient ID: David Wei is a 78 y.o. male. Chief Complaint Chronic Condition He is here today for routine follow up. 1. T2DM. He is on basaglar, metformin and januvia. Last A1c = 8.5. Recent fasting blood sugars are in the 140-150 range. He has made some changes to his diet and has been exercising 4x/week. Current with dilated eye exam. 2. HTN. Complicated by diastolic dysfunction and CKD. He is prescribed lisinopril and chlorthalidone. Denies chest pain, LE swelling, SOB. 3. CKD. Stage 3. Follows with nephrology 4. HLD. Compliant with pravastatin. Denies myalgias or muscle weakness. 5. Prostate cancer. Managed by urology. Recent bone scan and CT imaging shows a new sclerotic lesion of L2 thought to represent a metastatic lesion. He has been started on lupron, abiraterone and prednisone. 6. Spinal stenosis. Managed by pain management. 7. Health Maintenance. Prevnar 13 today. Review of Systems Constitutional: Negative for fatigue and fever. Respiratory: Negative for shortness of breath. Cardiovascular: Negative for chest pain, palpitations and leg swelling. Endocrine: Negative for polydipsia, polyphagia and polyuria. Musculoskeletal: Positive for back pain. Neurological: Positive for numbness. Negative for dizziness, light-headedness and headaches. Muscle cramps Psychiatric/Behavioral: Negative for sleep disturbance. BP 108/60 (BP Location: Right arm, Patient Position: Sitting) Pulse 70 Temp 37 ??C (98.6 ??F) (Oral) Resp 18 Ht 177.8 cm (5' 10 ) Wt 98.9 kg (218 lb) SpO2 96% BMI 31.28 kg/m?? Physical Exam Constitutional: He is oriented to person, place, and time. He appears well- developed and well-nourished. HENT: Head: Normocephalic and atraumatic. Mouth/Throat: Oropharynx is clear and moist. Eyes: Pupils are equal, round, and reactive to light. EOM are normal. Neck: Normal range of motion. Neck supple. No thyromegaly present. Cardiovascular: Normal rate, regular rhythm, normal heart sounds and intact distal pulses. Pulses: Dorsalis pedis pulses are 2+ on the right side, and 2+ on the left side. Posterior tibial pulses are 2+ on the right side, and 2+ on the left side. Pulmonary/Chest: Effort normal and breath sounds normal. Musculoskeletal: Right foot: There is no deformity. Left foot: There is no deformity. Feet: Right Foot: Monofilament exam normal. Protective Sensation: 7 sites tested. 3 sites sensed. Skin Integrity: Negative for ulcer, blister, skin breakdown, callus or dry skin. Left Foot: Monofilament exam normal. Protective Sensation: 7 sites tested. 2 sites sensed. Skin Integrity: Negative for ulcer, blister, skin breakdown, callus or dry skin. Lymphadenopathy: He has no cervical adenopathy. Neurological: He is alert and oriented to person, place, and time. No cranial nerve deficit or sensory deficit. Skin: Skin is warm and dry. Capillary refill takes less than 2 seconds. Psychiatric: He has a normal mood and affect. His behavior is normal. Judgment normal. Vitals reviewed. Assessment/Plan Diagnoses and all orders for this visit: Type 2 diabetes mellitus with stage 3 chronic kidney disease, without long-term current use of insulin ([facility]) (Primary) Comments: Uncontrolled but recent fasting sugars have been at goal. Daily foot inspections advised. Continue with current medications, low carb diet and exercise. Hyperlipidemia associated with type 2 diabetes mellitus ([facility]) Comments: Lab today. Continue pravastatin. Orders: - Lipid panel; Future Hypertensive kidney disease with chronic kidney disease stage III ([facility]) Comments: BP at goal. Labs today. Continue lisinopril and chlorthalidone. Orders: - Comprehensive metabolic panel; Future - CBC with auto differential; Future Prostate cancer ([facility]) Comments: Recent urology notes and imaging reviewed. Continue management per urology. PAF (paroxysmal atrial fibrillation) ([facility]) Comments: RRR today. Continue diltiazem. Spinal stenosis of lumbar region with neurogenic claudication Comments: Continue to follow with pain management. Immunization due - Pneumococcal conjugate vaccine 13-valent IM (Prevnar-13) Obesity (BMI 30-39.9) BMI 31.0-31.9,adult [facility] Cosigned by Kraig Ching MD at 11/21/2018 8:38 AM CDT documented in this encounter Plan of Treatment Not on file documented as of this encounter Goals Goal Patient Goal Type Associated Problems Recent Progress Patient-Stated? Author CCM Chronic Pain Care Plan Chronic Care Management No change(03/23 1:47 PM BILLBOARD POSTER) No Ingrid Oden RN Note: Problem: Chronic Pain Goals: 1. Minimize further functional decline 2. Maximize quality of life 3. Control pain Strategies: - Activity/exercise program recommendation - Conservative stepwise pain medicine strategy with multi-disciplinary approach - Recommend healthy lifestyle strategies and compensatory methods as needed documented as of this encounter Results * (ABNORMAL) CBC with auto differential (11/17/2018 2:10 PM CDT) WBC 11.8(H) 3.8 - 9.9 K/cumm [facility] Hgb 12.6(L) 13.0 - 17.5 g/dL [facility] Hct 38.7(L) 38.9 - 50.3 % [facility] Plt 401(H) 150 - 400 K/cumm [facility] MPV 9.8 9.1 - 12.3 fL [facility] RBC 4.49 4.30 - 5.80 M/cumm [facility] MCV 86.2 81.3 - 96.4 fL [facility] MCH 28.1 27.1 - 33.3 pg [facility] MCHC 32.6 32.3 - 35.7 g/dL [facility] RDW CV 15.1(H) 11.1 - 14.9 % [facility] RDW SD 47.7 35.7 - 48.1 fL [facility] NRBC abs 0.00 0.00 - 0.01 K/cumm [facility] Blood specimen (specimen) 11/17/2018 2:10 PM CDT 11/17/2018 6:16 PM CDT Katherine ESQU[facility] LAB BLOOD ORDERABLES Final Result [facility] [place] [address] * (ABNORMAL) Lipid panel (11/17/2018 2:10 PM CDT) Cholesterol 226(H) 30 - 199 mg/dL [facility] Comment: Interpretive Data Ages < or = [...] Data was last revised on 2017. Triglycerides 327(H) <=149 mg/dL [facility] Comment: Interpretive Data Ages < or = [...] revised on 2017. HDL 41 >=40 mg/dL [facility] Comment: Interpretive Data Ages < or = [...] was last revised on 2017. LDL, calculated 120 <=129 mg/dL [facility] Comment: Interpretive Data Ages < or = [...] was last revised on 2017. Non-HDL Cholesterol 185 mg/dL [facility] Comment: Interpretive Data Ages [...] was last revised on 2017. Chol/HDL ratio 6 [facility] Blood specimen (specimen) 11/17/2018 2:10 PM CDT 11/17/2018 6:16 PM CDT us Katherine ESQU[facility] LAB BLOOD ORDERABLES Final Result [facility] Department [place] [address] * (ABNORMAL) Comprehensive metabolic panel (11/17/2018 2:10 PM CDT) Sodium 138 135 - 145 mmol/L [facility] Potassium, pl 5.2(H) 3.3 - 4.9 mmol/L [facility] Chloride 103 97 - 110 mmol/L [facility] CO2 26 22 - 32 mmol/L [facility] Anion gap 9 2 - 15 mmol/L [facility] BUN 41(H) 8 - 25 mg/dL [facility] Creatinine 1.66(H) 0.80 - 1.30 mg/dL [facility] Glucose 139 70 - 199 mg/dL [facility] Comment: Interpretive Data Fasting glucose [...] 2017. Calcium 9.9 8.5 - 10.3 mg/dL [facility] Bilirubin, total 0.4 0.1 - 1.2 mg/dL [facility] Protein, pl 7.4 6.5 - 8.5 g/dL [facility] Albumin 4.4 3.5 - 5.0 g/dL [facility] Alk phos 117 40 - 130 Units/L [facility] ALT 43 7 - 55 Units/L [facility] AST 23 10 - 50 Units/L [facility] Blood specimen (specimen) 11/17/2018 2:10 PM CDT 11/17/2018 6:16 PM CDT Katherine ESQU[facility] LAB BLOOD ORDERABLES Final Result [facility] Department of Laboratories [place], [place] [id number] documented in this encounter Visit Diagnoses Diagnosis Type 2 diabetes mellitus with stage 3 chronic kidney disease, without long-term current use of insulin (HCC)- Primary Hyperlipidemia associated with type 2 diabetes mellitus (HCC) Hypertensive kidney disease with chronic kidney disease stage III (HCC) Unspecified hypertensive kidney disease with chronic kidney disease stage I through stage IV, or unspecified Prostate cancer (HCC) Malignant neoplasm of prostate PAF (paroxysmal atrial fibrillation) (CMS/HCC) (HCC) Atrial fibrillation Spinal stenosis of lumbar region with neurogenic claudication Immunization due Obesity (BMI 30-39.9) BMI 31.0-31.9,adult documented in this encounter Historical Medications * This list may reflect changes made after this encounter. BOBBYAGLWENDI JOHNSONIKPEN U-100 INSULIN 100 unit/mL (3 mL) insulin pen INJECT 10 UNITS UNDER THE SKIN DAILY UTD 11 11/15/2018 06/09/2019 added in this encounter Orders Immunization/Injection Count Last Ordered Date First Ordered Date PNEUMOCOCCAL CONJUGATE VACCI NE 13-VALENT IM 1 11/17/2018 documented in this encounter Care Teams Order Builder Loader Relationship Specialty Start Date End Date Kraig Ching MD [address] [place] [address] PCP - General 07/10/16 Gautam Cope MD [address] [place] [address] Medical Oncologist/Primary Counselor Medical Oncology 08/18/18 Tramaine Roe MD [address] [place] [address] Referring Physician Urology 08/18/18 Sukhwinder Uribe MD [address] [place] [address] Consulting Physician Urology 08/18/18 Shay Guillermo MD [address] [place] [address] Referring Physician Urology 08/18/18 Marsha Landis, RN Registered Nurse 11/17/18 documented as of this encounter
--- OUTSIDE RECORDS SUMMARY | 2024-03-31 05:02 | XMS_ITS | Encounter Summary ---
Author Organization [facility] Address [address] [place] [address] Phone Care Team Providers Care Fast Food Delivery Driver Name Role Phone Kraig Ching MD Primary Care Provider [phone] Gautam Cope MD Unavailable Tramaine Roe MD Unavailable [phone] Sukhwinder Uribe MD Unavailable [phone] Shay Guillermo MD Unavailable [phone] Encounter Details Date Type Department Care Team (Late st Contact Info) Description 10/18/2018 Orders Only [facility] Oncology [address] [facility] 7th [place] [address] [place] [id number] Muna Saleem RN Prostate cancer (CMS/HCC) (Primary [...] on file 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 Author CCM Chronic Pain Care Plan Chronic Care Management No change(03/23 1:47 PM CUSHION MAKER) No Ingrid Oden, RN Note: Problem: [...] prostate documented in this encounter Care Teams Fast Food Delivery Driver Relationship Specialty Start Date End Date Kraig Ching MD [address] [place] [address] PCP - General 07/10/16 Gautam Cope MD [address] [place] [address] Medical Oncologist/Fructose Loader Medical Oncology 08/18/18 Tramaine Roe MD [address] [place] [address] Referring Physician Urology 08/18/18 Sukhwinder rUibe MD [address] [place] [address] Consulting Physician Urology 08/18/18 Shay Guillermo MD [address] [place] [address] Referring Physician Urology 08/18/18 documented as of this encounter
--- OUTSIDE RECORDS SUMMARY | 2024-03-31 05:02 | XMS_ITS | Encounter Summary ---
Author Organization [facility] Address [address] [place] [address] Care Team Providers Care Emblem Cutter Name Role Phone Kraig Ching MD Primary Care Provider [phone] Gautam Cope MD Unavailable Tramaine Roe MD Unavailable [phone] Sukhwinder Uribe MD Unavailable [phone] Shay Guillermo MD Unavailable [phone] Reason for Referral * Diagnostic Imaging (Routine) - Closed Specialty Diagnoses / Procedures Referred By Contac t Referred To Contact Radiology Diagnoses Prostate cancer (HCC) Procedures CT Chest Abdomen Pelvis WO Contrast Gautam Cope MD Phone: tel: fax: [address] [address] Referral ID Status Reason Start Date Expiration Date Visits Re quested Visits Authorized [id number] Closed 09/06/2018 03/17/2020 1 1 Reason for Visit * Diagnostic Imaging (Routine) - Closed Specialty Diagnoses / Procedures Referred By Contac t Referred To Contact Radiology Diagnoses Prostate cancer (HCC) Procedures CT Chest Abdomen Pelvis WO Contrast Gautam Cope MD Phone: tel: fax: [address] [address] Referral ID Status Reason Start Date Expiration Date Visits Re quested Visits Authorized [id number] Closed 09/06/2018 03/17/2020 1 1 Encounter Details Date Type Department Care Team (Latest Contact Info) Description 09/13/2018 7:33 AM CDT - 09/13/2018 11:59 PM CDT Hospital Encounter [facility] [address] [place] [address] Gautam Cope MD [address] [facility] [address] [place] [address] Prostate cancer (CMS/HCC) Discharge Disposition: Discharge to [...] on file 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 30 tablet 11 03/07/2018 11/17/2022 BD ULTRA-FINE SHORT PEN NEEDLE 31 gauge x 5/16 needle USE TO INJECT INSULIN ONCE DIALY 1 08/29/2018 01/18/2019 bicalutamide (CASODEX) 50 mg tabletIndication s:metastatic prostate carcinoma Take 1 tablet (50 mg total) by mouth daily 30 tablet 09/06/2018 11/02/2018 blood glucose diagnostic strip 11/10/19 23 chlorthalidone 25 mg tablet Take 1/2 tablet daily (12.5 mg) 15 tablet 11 08/24/2018 09/06/2019 diltiaZEM (CARDIZEM) 120 mg tablet TAKE 1 TABLET BY MOUTH DAILY 90 tablet 1 06/12/2018 12/06/2018 gabapentin (NEURONTIN) 300 mg capsuleIndicatio ns:Neuropathic Pain Take 1 capsule (300 mg total) by mouth nightly 90 capsule 2 09/09/2018 09/15/2018 insulin glargine (LANTUS U-100 INSULIN) 100 unit/mL injectionIndicat ions:Type 2 diabetes mellitus with stage 3 chronic kidney disease, without long-term current use of insulin (HCC) Injected daily as directed. 10 mL 11 08/29/2018 07/28/2019 lisinopril (PRINIVIL,ZESTRI L) 40 mg tablet Take 1 tablet (40 mg total) by mouth daily 90 tablet 11 07/12/2018 01/17/2019 metFORMIN (GLUCOPHAGE) 500 mg tablet Take 1 tablet (500 mg total) by mouth 2 (two) times a day with meals. 60 tablet 11 10/25/2017 10/13/2018 ONETOUCH ULTRA BLUE TEST STRIP strip TEST SUGAR TWICE DAILY 100 each 3 09/20/2017 11/09/[address] (PROTONIX) 40 mg EC tablet Take 1 tablet (40 mg total) by mouth daily. 30 tablet 11 12/02/2017 12/05/2018 pravastatin (PRAVACHOL) 20 mg tablet Take 1 tablet (20 mg total) by mouth daily. 30 tablet 11 11/26/2017 11/11/2018 SITagliptin (JANUVIA) 25 mg tabletIndication s:type 2 diabetes mellitus Take 1 tablet (25 mg total) by mouth daily. 30 tablet 11 11/25/2017 11/11/2018 TRAVATAN Z 0.004 % drops INT 1 DROP INTO OU QHS 5 12/28/2017 11/17/2022 documented as of this encounter Discharge Disposition Disposition Code Departure Means Destination Discharge to home or self care documented in this encounter Plan of Treatment Not on file documented as of this encounter Procedures Procedure Name Priority Date/Time Associated Diagnosis Comments CT CHEST ABDOMEN PELVIS WO CONTRAST Schedule Routine, Read Routine (OP Routine) 09/13/2018 7:57 AM CDT Prostate cancer (CMS/HCC) documented in this encounter Results * CT Chest Abdomen Pelvis WO Contrast (09/13/2018 7:57 AM CDT) Anatomical Region Laterality Modality Body N/A Computed Tomogra phy 09/13/2018 9:29 AM CDT Impressions 09/13/2018 9:37 AM CDT 1. ??Sclerotic lesion involving the L2 vertebral body , stable from the MRI dated 07/20/2018, likely representing metastatic disease. 2. ??No evidence of metastatic disease in chest. Dictated by: Sadiq Le M.D. The radiology attending physician has personally reviewed this study, and had reviewed and/or edited this written report and agrees with it. Electronically signed by: Bryan Antunez M.D. Narrative 09/13/2018 9:37 AM CDT EXAMINATION: ??Computed tomography of the chest, abdomen and pelvis without intravenous contrast HISTORY: Prostate cancer TECHNIQUE: ??Transaxial computed tomographic images of the chest, abdomen and pelvis were obtained without intravenous contrast according to the standard protocol. COMPARISON: CT dated 02/28/2015, MR dated 07/20/2018 FINDINGS: ?? Chest: Moderate edematous changes are noted. ??Lungs are clear with no focal consolidation, pleural effusion, or pneumothorax. There is no axillary, supraclavicular or mediastinal lymphadenopathy. Atherosclerotic calcification of aorta and coronary arteries noted. Heart is normal in size. Abdomen/Pelvis: The liver, pancreas, and adrenal glands demonstrate normal noncontrast appearance. ?? Exophytic cysts seen in both kidneys are unchanged from the prior study. ??Bilateral perinephric stranding is again seen. There is no hydronephrosis or nephrolithiasis. ??There are no bladder appears slightly thick-walled. ??Postoperative changes of prostatectomy is noted. Penile prosthesis is present. There is no free peritoneal air or fluid. ??Atherosclerotic calcification of aorta and iliac arteries are noted. ??There is no evidence of bowel obstruction. ??The appendix is visualized and it started as normal limits. ??Sigmoid colon diverticulosis is seen with no evidence of diverticulitis. There is anterolisthesis of L4 on L5. There is a sclerotic lesion involving the L2 vertebral body, which is new from the prior CT dated 02/28/2015, likely representing metastatic disease. There is a stable well-demarcated posterior iliac lesion that may represent a geode, stable from the 02/28/2015. 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 Procedure Note Bryan Antunez MD - 09/13/2018 EXAMINATION: Computed tomography of the chest, abdomen and pelvis without intravenous contrast HISTORY: Prostate cancer TECHNIQUE: Transaxial computed tomographic images of the chest, abdomen and pelvis were obtained without intravenous contrast according to the standard protocol. COMPARISON: CT dated 02/28/2015, MR dated 07/20/2018 FINDINGS: Chest: Moderate edematous changes are noted. Lungs are clear with no focal consolidation, pleural effusion, or pneumothorax. There is no axillary, supraclavicular or mediastinal lymphadenopathy. Atherosclerotic calcification of aorta and coronary arteries noted. Heart is normal in size. Abdomen/Pelvis: The liver, pancreas, and adrenal glands demonstrate normal noncontrast appearance. Exophytic cysts seen in both kidneys are unchanged from the prior study. Bilateral perinephric stranding is again seen. There is no hydronephrosis or nephrolithiasis. There are no bladder appears slightly thick-walled. Postoperative changes of prostatectomy is noted. Penile prosthesis is present. There is no free peritoneal air or fluid. Atherosclerotic calcification of aorta and iliac arteries are noted. There is no evidence of bowel obstruction. The appendix is visualized and it started as normal limits. Sigmoid colon diverticulosis is seen with no evidence of diverticulitis. There is anterolisthesis of L4 on L5. There is a sclerotic lesion involving the L2 vertebral body, which is new from the prior CT dated 02/28/2015, likely representing metastatic disease. There is a stable well-demarcated posterior iliac lesion that may represent a geode, stable from the 02/28/2015. Diffuse idiopathic skeletal hyperostosis of the mid thoracic spine is seen. IMPRESSION: 1. Sclerotic lesion involving the L2 vertebral body , stable from the MRI dated 07/20/2018, likely representing metastatic disease. 2. No evidence of metastatic disease in chest. Dictated by: Sadiq Le M.D. The radiology attending physician has personally reviewed this study, and had reviewed and/or edited this written report and agrees with it. Electronically signed by: Bryan Antunez M.D. Gautam Cope MD IMG CT PROCEDURES Final Result documented in this encounter Visit Diagnoses Diagnosis Prostate cancer (HCC) Malignant neoplasm of prostate documented in this encounter Care Teams Emblem Cutter Relationship Specialty Start Date End Date Kraig Ching MD [address] [address] PCP - General 07/10/16 Gautam Cope MD [address] [facility] [address] [place] [address] Medical Oncologist/Airbrush Artist Photography Medical Oncology 08/18/18 Tramaine Roe MD [address] [facility] [address] [place] [address] Referring Physician Urology 08/18/18 Sukhwinder Uribe MD [address] [facility] [address] [place] [address] Consulting Physician Urology 08/18/18 Shay Guillermo MD [address] [facility] [address] [place] [address] Referring Physician Urology 08/18/18 documented as of this encounter
--- OUTSIDE RECORDS SUMMARY | 2024-03-31 05:02 | XMS_ITS | Encounter Summary ---
Author Organization [facility] Healthcare Address [address] [place] [address] Care Team Providers Care Naprapath Name Role Phone Kraig Ching MD Primary Care Provider [phone] Gautam Cope MD Unavailable Tramaine Roe MD Unavailable [phone] Sukhwinder Uribe MD Unavailable [phone] Shay Guillermo MD Unavailable [phone] Marsha Landis RN Unavailable Unavailab le Reason for Visit * Reason Comments Back Pain Encounter Details Date Type Department Care Team (Latest Contact Info) Description 11/17/2018 2:51 PM CDT - 11/17/2018 11:59 PM CDT Hospital Encounter [facility] [address] [facility] [address] [place], [place] [id number] Maru Arreola MD PhD [address] 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 Gender Identity Not on file Sexual Orientation Not on file documented as of this encounter Last Filed Vital Signs Vital Sign Reading Time Taken Comments Blood Pressure 154/74 11/17/2018 3:04 PM CDT Pulse 71 11/17/2018 3:04 PM CDT Temperature 36.6 ??C (97.9 ??F) 11/17/2018 3:04 PM CD T Respiratory Rate 12 11/17/2018 3:04 PM CDT Oxygen Saturation 95% 11/17/2018 3:04 PM CDT Inhaled Oxygen Concentration - - Weight 98.4 kg (217 lb) 11/17/2018 3:04 PM CDT Height 177.8 cm (5' 10 ) 11/17/2018 3:04 PM CDT Body Mass Index 31.14 11/17/2018 3:04 PM CDT documented in this encounter Discharge Instructions * Discharge Instructions* Marsha Landis RN - 11/17/2018 3:36 PM CDT * Patient Instructions* Marsha Landis RN - 11/17/2018 3:32 PM CDT Increase gabapentin to 200 mg at bedtime Over the counter magnesium 100 at bedtime Can go up to 300 mg if desired (can cause diarrhea ) Return 2 months for transforaminl epidural steroid injection-- 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 30 tablet 11 03/07/2018 3 ALFRED VALLEJO U-100 INSULIN 100 unit/mL (3 mL) insulin [...] BY MOUTH DAILY 90 tablet 1 06/12/2018 9 gabapentin (NEURONTIN) 100 mg capsuleIndications: Neuropathic Pain [...] 1 TABLET BY MOUTH DAILY 30 tablet 11/11/2018 9 lisinopril (PRINIVIL,ZESTRIL) 40 mg tablet Take 1 tablet (40 mg total) by mouth daily 90 tablet 11 07/12/2018 9 metFORMIN (GLUCOPHAGE) 500 mg tablet TAKE 1 TABLET(500 MG) BY MOUTH TWICE DAILY WITH MEALS 60 tablet 3 10/24/2018 9 ONETOUCH ULTRA BLUE TEST STRIP strip TEST SUGAR TWICE DAILY 100 each 3 09/20/[address] (PROTONIX) 40 mg EC tablet Take 1 tablet (40 mg total) by mouth daily. 30 tablet 11 12/02/2017 9 pravastatin (PRAVACHOL) 20 mg tablet TAKE 1 TABLET(20 MG) BY MOUTH DAILY 30 tablet 11/11/2018 9 predniSONE (DELTASONE) 5 mg tabletIndications:A drenal Cortical Insufficiency Take 1 tablet (5 mg) by mouth 2 (two) times a day 60 tablet 11 10/20/2018 0 TRAVATAN Z 0.004 % drops INT 1 DROP INTO OU QHS 5 12/28/2017 3 documented as of this encounter Ordered Prescriptions Prescription Sig Dispense Quantity Refills Last Filled Start Date End Date gabapentin (NEURONTIN) 100 mg capsule Take 2 capsules (200 mg total) by mouth nightly 60 capsule 2 11/17/2018 0 documented in this encounter Discharge Disposition Disposition Code Departure Means Destination Discharge to home or self care documented in this encounter Progress Notes * Maru Arreola MD PhD - 11/17/2018 3:30 PM CDT Patient Name: David Wei : 1940 Today's Date: 11/17/2018 PCP: Kraig Ching MD Referring: No ref. provider found Chief Complaint Patient presents with ??? Back Pain HPI HISTORICAL INFO: Mr. [...] stenosis. There is no spinal canal stenosis Pain Procedures: 09/15/18: LSNR at bilateral L4/5 (good relief) 11/17/18: LSNR bilateral L4/5 - not done due to continued relief from previous injection INTERVAL HISTORY (11/17/2018): Mr. David Wei returns to care for persistent low back pain. He reports no new numbness, weakness, bowel/bladder incontinence. Since the last visit, the pain is unchanged. He is s/p LSNR at bilateral L4/5, which provided continued pain relief but he does endorse muscle cramps at night. He denies any side effects to current pain medications. He rates his pain at 4/10 on average. The pain increases with extension, standing and decreases with flexion of the spine. His ADLs are difficult, but manageable on his own. His main complaint today is the numbness that he occasionally experiences in his bilateral lower extremities and muscle cramps at night. Current Pain meds: Pain Medications gabapentin (NEURONTIN) 100 mg capsule Take 1 capsule (100 mg total) by mouth nightly predniSONE (DELTASONE) 5 mg tablet Take 1 tablet (5 mg) by mouth 2 (two) times a day gabapentin (NEURONTIN) 100 mg capsule Take 2 capsules (200 mg total) by mouth nightly Review of Systems Review of Systems Constitutional: Negative. Eyes: Negative. Cardiovascular: Negative. Neurological: Positive for sensory change. Psychiatric/Behavioral: Negative. Patient's Medications New Prescriptions GABAPENTIN (NEURONTIN) 100 MG CAPSULE Take 2 capsules (200 mg total) by mouth nightly Authorizing Provider: Joseph Núñez MD Notes: -- Previous Medications ABIRATERONE (ZYTIGA) 250 [...] Authorizing Provider: Janes Ramirez MD Notes: -- INSULIN GLARGINE (LANTUS U-100 INSULIN) 100 UNIT/ML INJECTION Injected daily as directed. Authorizing Provider: SIERRA Landry Notes: -- JANUVIA 25 MG TABLET TAKE 1 TABLET BY MOUTH DAILY Authorizing Provider: Kraig Ching MD Notes: -- LISINOPRIL (PRINIVIL,ZESTRIL) 40 MG TABLET Take 1 tablet (40 mg total) by mouth daily Authorizing Provider: Lillian Cruz MD Notes: -- METFORMIN (GLUCOPHAGE) 500 MG TABLET TAKE 1 TABLET(500 MG) BY MOUTH TWICE DAILY WITH MEALS Authorizing Provider: Kraig Ching MD Notes: -- ONETOUCH ULTRA BLUE TEST STRIP STRIP TEST SUGAR TWICE DAILY Authorizing Provider: Kraig Ching MD Notes: -- PANTOPRAZOLE DR (PROTONIX) 40 MG EC TABLET Take 1 tablet (40 mg total) by mouth daily. Authorizing Provider: [...] Allergies Lab Results Component Value Date WBC 11.8 (H) 11/17/2018 HGB 12.6 (L) 11/17/2018 HCT 38.7 (L) 11/17/2018 MCV 86.2 11/17/2018 LABPLAT 401 (H) 11/17/2018 Physical Exam: Vitals: 11/17/18 1504 BP: 154/74 Pulse: 71 Resp: 12 Temp: 97.9 ??F (36.6 ??C) SpO2: 95% Weight: 98.4 kg (217 lb) Height: 177.8 cm (5' 10 ) Body mass index is 31.14 kg/m??. Constitutional: Patient is well-groomed, in NAD, A&Ox3 Lung: normal respiratory effort Cardiovascular: No JVD Skin: Bandage over left arm--previous blood draw earlier in the day. Psychiatric: normal affect Assessment: The above note [...] pain with bilateral sciatica Plan: 1. Interventions: We will proceed with bilateral LSNR at L4-5 in 2 month given that the patient's pain is currently well controlled. 2. Medications: ?? Opioids: Opioids are not indicated ?? Adjuvants: We will increase gabapentin to 200mg nightly. Suggested magnesium to help with patient's cramping. Medrol dose pack if the patient's pain recurs before appt. 3. Imaging: No further imaging needed at this current time. 4. Referral: No referrals needed at this current time. 5. Follow-up: In 2 month for the above procedure. Joseph Núñez MD Fellow, Pain Management I have seen and examined the patient. I agree with the findings and plan of care as documented in the resident's note. Maru Arreola MD PhD Instructor of Anesthesiology [facility] 11/17/2018 8:39 PM documented in this encounter Miscellaneous Notes * Addendum Note - Anahi Jarquin - 11/17/2018 11:59 PM CDTEncounter addended by: Anahi Jarquin on: 11/18/2018 8:22 AM Actions taken: Procedure log completed * Perioperative Nursing Note - Marsha Landis, SHEA - 11/17/2018 3:07 PM CDT Pt's will drive him home He will meet her on the first floor documented in this encounter Plan of Treatment Not on file documented as of this encounter Goals Goal Patient Goal Type Associated Problems Recent Progress Patient-Stated? Author CCM Chronic Pain Care Plan Chronic Care Management No change(03/23 1:47 PM DIRECTOR OF RELIGIOUS ACTIVITIES) No Ingrid Oden, SHEA Note: Problem: Chronic [...] sciatica documented in this encounter Care Teams Naprapath Relationship Specialty Start Date End Date Kraig Ching MD [address] [facility] [address] [place] [address] PCP - General 07/10/16 Gautam Cope MD [address] [facility] [address] [place] [address] Medical Oncologist/Food Taster Medical Oncology 08/18/18 Tramaine Roe MD [id number] [place] [address] Referring Physician Urology 08/18/18 Sukhwinder Uribe MD [id number] [place] [address] Consulting Physician Urology 08/18/18 Shay Guillermo MD [id number] [place] [address] Referring Physician Urology 08/18/18 Marsha Landis, RN Registered Nurse 11/17/18 documented as of this encounter
--- OUTSIDE RECORDS SUMMARY | 2024-03-31 05:02 | XMS_ITS | Encounter Summary ---
Author Organization [facility] Healthcare Address [address] [place] [address] Care Team Providers Care Loop Drier Operator Name Role Phone Kraig Ching MD Primary Care Provider [phone] Gautam Cope MD Unavailable Tramaine Roe MD Unavailable [phone] Sukhwinder Uribe MD Unavailable [phone] Shay Guillermo MD Unavailable [phone] Reason for Visit * Reason Onset Date Comments Schedule lumbar inj 09/09/2018 Encounter Details Date Type Department Care Team (Late st Contact Info) Description 09/09/2018 Telephone [facility] at [address] [place] [address] Maru Arreola MD PhD [phone] [place] [address] Schedule lumbar inj Social History Tobacco Use Types Packs/Day Years Used Date Smoking Tobacco: Former Smokeless Tobacco: Former Comments:Smoking History Pac ks/day: 10 Cigarettes Alcohol Use Standard Drinks/Week Comments No 0 (1 standard drink = 0.6 oz pur e alcohol) quit 09/2017 Sex and Gender Information Value Date Recorded Sex Assigned at Not on file 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 Arreola and she confirms that YES Dr. Arreola says OK to work himin on 09/15. documented in this encounter Plan of Treatment Not on file documented as of this encounter Visit Diagnoses Not on filedocumented in this encounter Care Teams Loop Drier Operator Relationship Specialty Start Date End Date Kraig Ching MD [address] [place] [address] PCP - General 07/10/16 Gautam Cope MD [address] [place] [address] Medical Oncologist/Critical Care Specialist Medical Oncology 08/18/18 Tramaine Roe MD [address] [place] [address] Referring Physician Urology 08/18/18 Sukhwinder Uribe MD [address] [place] [address] Consulting Physician Urology 08/18/18 Shay Guillermo MD [address] [place] [address] Referring Physician Urology 08/18/18 documented as of this encounter
--- OUTSIDE RECORDS SUMMARY | 2024-03-31 05:02 | XMS_ITS | Encounter Summary ---
Author Organization [facility] Facility Care Team Providers Care Computer Programming Supervisor Name Role Phone Kraig Ching MD Primary Care Provider [phone] Gautam Cope MD Unavailable Tramaine Roe MD Unavailable [phone] Sukhwinder Uribe MD Unavailable [phone] Shay Guillermo MD Unavailable [phone] Encounter Details Date Type Department Care Team (Latest Contact Info) Description 09/09/2018 Travel Social History Tobacco Use Types Packs/Day Years Used Date Smoking Tobacco: Former Smokeless Tobacco: Former Comments:Smoking History Pac ks/day: 10 Cigarettes Alcohol Use Standard Drinks/Week Comments No 0 (1 standard drink = 0.6 oz pur e alcohol) quit 09/2017 Sex and Gender Information Value Date Recorded Sex Assigned at Not on file 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 Gender Identity Not on file Sexual Orientation Not on file documented as of this encounter Plan of Treatment Not on file documented as of this encounter Visit Diagnoses Not on filedocumented in this encounter Care Teams Computer Programming Supervisor Relationship Specialty Start Date End Date Kraig Ching MD [address] [facility] [address] [place], [place] [id number] PCP - General 07/10/16 Gautam Cope MD [address] [place], [place] [id number] Medical Oncologist/Burlapper Medical Oncology 08/18/18 Tramaine Roe MD [address] [facility] [address] [place] [address] Referring Physician Urology 08/18/18 Sukhwinder Uribe MD [address] [facility] [address] [place] [address] Consulting Physician Urology 08/18/18 Shay Guillermo MD [address] [facility] [address] [place] [address] Referring Physician Urology 08/18/18 documented as of this encounter
--- OUTSIDE RECORDS SUMMARY | 2024-03-31 05:02 | XMS_ITS | Encounter Summary ---
Author Organization [facility] Address [address] [facility] [address] [place] [address] Care Team Providers Care Wellness Assistant Name Role Phone Kraig Ching MD Primary Care Provider [phone] Gautam Cope MD Unavailable Tramaine Roe MD Unavailable [phone] Sukhwinder Uribe MD Unavailable [phone] Shay Guillermo MD Unavailable [phone] Reason for Visit * Reason Onset Date Comments Jeane- Patient Update 09/16/2018 Encounter Details Date Type Department Care Team (Late st Contact Info) Description 09/16/2018 Telephone [facility] [address] [facility] [address] [place] [address] Kraig Ching MD [address] [facility] [address] [place] [address] Jeane- Patient Update Social History Tobacco Use Types Packs/Day Years Used Date Smoking Tobacco: Former Smokeless Tobacco: Never Comments:Smoking History Pac ks/day: 10 Cigarettes Alcohol Use Standard Drinks/Week Comments Yes 0 (1 standard drink = 0.6 oz pur e alcohol) Occasional glass of wine. 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 He just wanted to let the practice know. documented in this encounter Plan of Treatment Not on file documented as of this encounter Goals Goal Patient Goal Type Associated Problems Recent Progress Patient-Stated? Author CCM Chronic Pain Care Plan Chronic Care Management No change(03/23 1:47 PM CALL WORKER PERSON) No Ingrid Oden, SHEA Note: Problem: Chronic Pain Goals: 1. Minimize further functional decline 2. Maximize quality of life 3. Control pain Strategies: - Activity/exercise program recommendation - Conservative stepwise pain medicine strategy with multi-disciplinary approach - Recommend healthy lifestyle strategies and compensatory methods as needed documented as of this encounter Visit Diagnoses Not on filedocumented in this encounter Care Teams Wellness Assistant Relationship Specialty Start Date End Date Kraig Ching MD [address] [place] [address] PCP - General 07/10/16 Gautam Cope MD [address] [place] [address] Medical Oncologist/Apartment Maintenance Technician Medical Oncology 08/18/18 Tramaine Roe MD [address] [place] [address] Referring Physician Urology 08/18/18 Sukhwinder Uribe MD [address] [place] [address] Consulting Physician Urology 08/18/18 Shay Guillermo MD [address] [place] [address] Referring Physician Urology 08/18/18 documented as of this encounter
--- OUTSIDE RECORDS SUMMARY | 2024-03-31 05:02 | XMS_ITS | Encounter Summary ---
Author Organization [facility] Healthcare Address [address] [place] [address] Care Team Providers Care Qm Nurse Name Role Phone Kraig Ching MD Primary Care Provider [phone] Gautam Cope MD Unavailable Tramaine Roe MD Unavailable [phone] Sukhwinder Uribe MD Unavailable [phone] Shay Guillermo MD Unavailable [phone] Reason for Referral * Diagnostic Imaging (Routine) - Closed Specialty Diagnoses / Procedures Referred By Contac t Referred To Contact Diagnoses Pain management Procedures FL Fluoroscopy < 1 Hour (Statistical Only) Maru Arreola MD PhD Phone: tel: fax: [address] [address] Referral ID Status Reason Start Date Expiration Date Visits Re quested Visits Authorized [id number] Closed 09/15/2018 03/26/2020 1 1 Reason for Visit * Diagnostic Imaging (Routine) - Closed Specialty Diagnoses / Procedures Referred By Contac t Referred To Contact Diagnoses Pain management Procedures FL Fluoroscopy < 1 Hour (Statistical Only) Maru Arreola MD PhD Phone: tel: fax: [address] [address] Referral ID Status Reason Start Date Expiration Date Visits Re quested Visits Authorized [id number] Closed 09/15/2018 03/26/2020 1 1 Encounter Details Date Type Department Care Team (Latest Contact Info) Description 09/15/2018 1:55 PM CDT - 09/15/2018 11:59 PM CDT Hospital Encounter [facility] [address] [place] [address] Maru Arreola MD PhD [phone] [place], [place] [id number] Pain management Discharge Disposition: Discharge to home [...] file 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 Gender Identity Not on file Sexual [...] 90 tablet 1 06/12/2018 12/06/2018 gabapentin (NEURONTIN) 100 mg capsuleIndicatio ns:Neuropathic Pain Take 1 capsule (100 mg total) by mouth nightly 30 capsule 09/15/2018 07/03/2019 insulin glargine (LANTUS U-100 INSULIN) 100 unit/mL [...] Care Management No change(03/23 1:47 PM PUMP ERECTOR HELPER) No Ingrid Oden, SHEA Note: Problem: [...] ONLY) Schedule Routine, Read Routine (OP Routine) 09/15/2018 4:25 PM CDT Pain management documented in this encounter Results * FL Fluoroscopy < 1 Hour (Statistical Only) (09/15/2018 4:25 PM CDT) Narrative [facility] - 09/15/2018 4:31 PM CDT The images from this study are not interpreted by Radiology. ??Please refer to the physician's procedure / OR operative note. us Maru Arreola MD PhD IMG FLUOROSCOPY PROCEDUR ES Final Result [facility] documented in this encounter Visit Diagnoses Diagnosis Pain management documented in this encounter Care Teams Qm Nurse Relationship Specialty Start Date End Date Kraig Ching MD [address] [place] [address] PCP - General 07/10/16 Gautam Cope MD [address] [place] [address] Medical Oncologist/Technical Marketing Engineer Medical Oncology 08/18/18 Tramaine Roe MD [address] [place] [address] Referring Physician Urology 08/18/18 Sukhwinder Uribe MD [address] [place] [address] Consulting Physician Urology 08/18/18 Shay Guillermo MD [address] [place] [address] Referring Physician Urology 08/18/18 documented as of this encounter
--- OUTSIDE RECORDS SUMMARY | 2024-03-31 05:02 | XMS_ITS | Encounter Summary ---
Author Organization [facility] Address [address] [place] [address] Care Team Providers Care Quality Improvement Consultant Name Role Phone Kraig Ching MD Primary Care Provider [phone] Gautam Cope MD Unavailable Tramaine Roe MD Unavailable [phone] Sukhwinder Uribe MD Unavailable [phone] Shay Guillermo MD Unavailable [phone] Reason for Visit * Reason Comments Chronic Condition Encounter Details Date Type Department Care Team (Late st Contact Info) Description 08/29/2018 3:30 PM CDT Office Visit [facility] [address] [place] [address] Katherine Del Rio PA [address] [place] [address] Type 2 diabetes mellitus with stage 3 chronic kidney disease, without long-term current use of insulin (CMS/HCC) (Primary Dx); Essential hypertension; Stage 3 chronic kidney disease (CMS/HCC); Obesity (BMI 30-39.9); BMI 30.0-30.9,adult Social History Tobacco Use Types Packs/Day Years Used Date Smoking Tobacco: Former Smokeless Tobacco: Former Comments:Smoking History Pac ks/day: 10 Cigarettes Alcohol Use Standard Drinks/Week Comments No 0 (1 standard drink = 0.6 oz pur e alcohol) quit 09/2017 Sex and Gender Information Value Date Recorded Sex Assigned at Not on file Legal Sex 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 Gender Identity Not on file Sexual Orientation Not on file documented as of this encounter Last Filed Vital Signs Vital Sign Reading Time Taken Comments Blood Pressure 124/66 08/29/2018 3:57 PM CDT Pulse 88 08/29/2018 3:57 PM CDT Temperature 37.2 ??C (99 ??F) 08/29/2018 3:57 PM CDT Respiratory Rate 18 08/29/2018 3:57 PM CDT Oxygen Saturation 95% 08/29/2018 3:57 PM CDT Inhaled Oxygen Concentration - - Weight 99.2 kg (218 lb 12.8 oz) 08/29/2018 3:57 PM CDT Height 177.8 cm (5' 10 ) 08/29/2018 3:57 PM CDT Body Mass Index 31.39 08/29/2018 3:57 PM CDT documented in this encounter Ordered Prescriptions Prescription Sig Dispense Quantity Refills Last Filled Start Date End Date insulin glargine (LANTUS U-100 INSULIN) 100 unit/mL injectionIndicatio ns:Type 2 diabetes mellitus with stage 3 chronic kidney disease, without long-term current use of insulin (HCC) Injected daily as directed. 10 mL 11 08/29/2018 0 documented in this encounter Progress Notes * Katherine Del Rio, SIERRA - 08/29/2018 3:30 PM CDT Subjective/Objective Patient ID: David Wei is a 77 y.o. male. Chief Complaint Chronic Condition He is here today for follow up. 1. T2DM. Recent A1c = 10.3. Current fasting blood sugar run in the low 200s. He needs to start insulin. He saw a clinical educator and has been instructed in how to give himself injections. He is current with dilated eye exam. 2. HTN. Prescribed lisinopril and chlorthalidone. 3. Lumbar radiculopathy. He is scheduled to see pain management for low back pain with left LE radiculopathy. 4. CKD, stag 3. He saw his kidney doctor who started him on chlorthalidone. Review of Systems Constitutional: Negative for fatigue. Respiratory: Negative for shortness of breath. Cardiovascular: Negative for chest pain, palpitations and leg swelling. Endocrine: Negative for polydipsia, polyphagia and polyuria. Neurological: Negative for numbness. BP 124/66 Pulse 88 Temp 37.2 ??C (99 ??F) Resp 18 Ht 177.8 cm (5' 10 ) Wt 99.2 kg (218 lb12.8 oz) SpO2 95% BMI 31.39 kg/m?? Physical Exam Constitutional: He is oriented to person, place, and time. He appears well- developed and well-nourished. HENT: Head: Normocephalic and atraumatic. Mouth/Throat: Oropharynx is clear and moist. Eyes: Pupils are equal, round, and reactive to light. EOM are normal. Cardiovascular: Normal rate and regular rhythm. Pulmonary/Chest: Effort normal. Neurological: He is alert and oriented to person, place, and time. No cranial nerve deficit. Skin: Skin is warm and dry. Assessment/Plan Diagnoses and all orders for this visit: Type 2 diabetes mellitus with stage 3 chronic kidney disease, without long-term current use of insulin ([facility]) (Primary) Comments: Uncontrolled. Lantus prescribed. Orders: - insulin glargine (LANTUS U-100 INSULIN) 100 unit/mL injection; Injected daily as directed. (Patient taking differently: Inject 10 Units under the skin daily Injected daily as directed.) Essential hypertension Comments: BP at goal. Lab today. Continue lisinopril and chlorthalidone. Orders: - Basic metabolic panel; Future Stage 3 chronic kidney disease ([facility]) Comments: Avoid nephrotoxins. Continue management per nephrology. Obesity (BMI 30-39.9) BMI 30.0-30.9,adult [place] Landry documented in this encounter Plan of Treatment Not on file documented as of this encounter Goals Goal Patient Goal Type Associated Problems Recent Progress Patient-Stated? Author CCM Chronic Pain Care Plan Chronic Care Management No change(03/23 1:47 PM SUPERVISOR POLISHING) Ingrid Mcdaniels, RN Note: Problem: Chronic Pain Goals: 1. Minimize further functional decline 2. Maximize quality of life 3. Control pain Strategies: - Activity/exercise program recommendation - Conservative stepwise pain medicine strategy with multi-disciplinary approach - Recommend healthy lifestyle strategies and compensatory methods as needed documented as of this encounter Procedures Procedure Name Priority Date/Time Associated Diagnosis Comments DIABETES EYE EXAM Routine 06/29/2018 documented in this encounter Results * (ABNORMAL) Basic metabolic panel (08/29/2018 4:43 PM CDT) Sodium 137 135 - 145 mmol/L [facility] Potassium, pl 4.2 3.3 - 4.9 mmol/L [facility] Chloride 100 97 - 110 mmol/L [facility] CO2 25 22 - 32 mmol/L [facility] Anion gap 12 2 - 15 mmol/L [facility] BUN 35(H) 8 - 25 mg/dL [facility] Creatinine 1.91(H) 0.80 - 1.30 mg/dL [facility] Glucose 106 70 - 199 mg/dL [facility] Comment: Interpretive Data Fasting glucose >/= 126 [...] interpretive data was last revised 2017. Calcium 9.6 8.5 - 10.3 mg/dL [facility] Blood specimen (specimen) 08/29/2018 4:43 PM CDT 08/29/2018 7:56 PM CDT Narrative [facility] - 08/29/2018 8:26 PM CDT us Katherine ESQUIVEL LAB BLOOD ORDERABLES Final Result [facility] Department [place] [address] * DIABETES EYE EXAM (06/29/2018) Pathologist [facility] Diabetic Eye Exam Normal us Historical Provider HEALTH MAINTENANCE Final Result documented in this encounter Visit Diagnoses Diagnosis Type 2 diabetes mellitus with stage 3 chronic kidney disease, without long-term current use of insulin (HCC)- Primary Essential hypertension Unspecified essential hypertension Stage 3 chronic kidney disease (HCC) Obesity (BMI 30-39.9) BMI 30.0-30.9,adult documented in this encounter Historical Medications * This list may reflect changes made after this encounter. Medication Sig Dispense Quantity Refills Last Filled Start D ate End Date blood glucose diagnostic strip 11/10/19 23 added in this encounter Care Teams Quality Improvement Consultant Relationship Specialty Start Date End Date Kraig Ching MD [address] [place] [address] PCP - General 07/10/16 Gautam Cope MD [address] [place] [address] Medical Oncologist/[employer] Medical Oncology 08/18/18 Tramaine Roe MD [address] [place] [address] Referring Physician Urology 08/18/18 Sukhwinder Uribe MD [address] [place] [address] Consulting Physician Urology 08/18/18 Shay Guillermo MD [address] [place] [address] Referring Physician Urology 08/18/18 documented as of this encounter
--- OUTSIDE RECORDS SUMMARY | 2024-03-31 05:02 | XMS_ITS | Encounter Summary ---
Author Organization [facility] Address [address] [place] [address] Phone Care Team Providers Care Sneller Hand Name Role Phone Kraig Ching MD Primary Care Provider [phone] Gautam Cope MD Unavailable Tramaine Roe MD Unavailable [phone] Sukhwinder Uribe MD Unavailable [phone] Shay Guillermo MD Unavailable [phone] Encounter Details Date Type Department Care Team (Late st Contact Info) Description 10/18/2018 2:15 PM CDT Lab [facility] Oncology [address] 7[address] [place] [address] [place] [address] Prostate cancer ([facility]/HCC) Social History Tobacco Use Types Packs/Day Years Used Date Smoking Tobacco: Former Smokeless Tobacco: Never Comments:Smoking History Pac ks/day: 10 Cigarettes Alcohol Use Standard Drinks/Week Comments Yes 0 (1 standard drink = 0.6 oz pur e alcohol) Occasional glass of wine. 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 Author CCM Chronic Pain Care Plan Chronic Care Management No change(03/23 1:47 PM FLORAL DEPARTMENT SPECIALIST) No Ingrid Oden, RN Note: Problem: Chronic Pain Goals: 1. Minimize further functional decline 2. Maximize quality of life 3. Control pain Strategies: - Activity/exercise program recommendation - Conservative stepwise pain medicine strategy with multi-disciplinary approach - Recommend healthy lifestyle strategies and compensatory methods as needed documented as of this encounter Procedures Procedure Name Priority Date/Time Associated Diagnosis Comments DIFFERENTIAL AUTO Routine 10/18/2018 1:5 5 PM CDT Prostate cancer (CMS/HCC) CBC WITH AUTO DIFFERENTIAL Routine 10/18/2018 1:55 PM CDT Prostate cancer (CMS/HCC) HEMOGLOBIN A1C Routine 10/18/2018 1:53 PM CDT Prostate cancer (CMS/HCC) PSA DIAGNOSTIC Routine 10/18/2018 1:50 PM CDT Prostate cancer (CMS/HCC) LACTATE DEHYDROGENASE Routine 10/18/2018 1:50 PM CDT Prostate cancer (CMS/HCC) COMPREHENSIVE METABOLIC PANEL Routine 10/18/2018 1:50 PM CDT Prostate cancer (CMS/HCC) TOTAL TESTOSTERONE Routine 10/18/2018 1: 43 PM CDT Prostate cancer (CMS/HCC) documented in this encounter Results * Differential, auto (10/18/2018 1:55 PM CDT) Neutrophil abs 6.6 1.8 - 6.6 K/cumm [facility] Comment:Testing performed by : [facility], [address] [place] [phone] Lymphocyte abs 1.9 1.2 - 3.3 K/cumm [facility] Comment:Testing performed by : [facility], [address] [place] [phone] Monocyte abs 0.9 0.2 - 1.2 K/cumm [facility] Comment:Testing performed by : [facility], [address] [place] [phone] Eosinophil abs 0.3 0.0 - 0.5 K/cumm [facility] Comment:Testing performed by : [facility], [address] [place] [phone] Basophil abs 0.1 0.0 - 0.2 K/cumm [facility] Comment:Testing performed by : [facility], [address] [place] [phone] Neutrophil pct 67.6 % [facility] Comment: Interpretive Data Percent cell count reference ranges are not reported, since discordance with absolute values may lead to misinterpretation of CBC data. Current Interpretive Data was last revised on 2017. Testing performed by: [facility], [address] [place] [phone] Lymphocyte pct 19.9 % [facility] Comment: Interpretive Data Percent cell count reference ranges are not reported, since discordance with absolute values may lead to misinterpretation of CBC data. Current Interpretive Data was last revised on 2017. Testing performed by: [address] [phone] Monocyte pct 9.1 % [facility] Comment:Testing performed by : [facility], [address] [place] [phone] Eosinophil pct 2.8 % [facility] Comment:Testing performed by : [facility], [address] [place] [phone] Basophil pct 0.6 % [facility] Comment:Testing performed by : [address] [phone] Blood specimen (specimen) 10/18/2018 1:55 PM CDT 10/18/2018 1:57 PM CDT us Gautam Cope MD LAB BLOOD ORDERABLES Final Resul t [facility] Department [place] [address] * (ABNORMAL) CBC with auto differential (10/18/2018 1:55 PM CDT) WBC 9.7 3.8 - 9.8 K/cumm [facility] Comment:Testing performed by : [facility], [address] [place] [address] Hgb 12.3(L) 13.8 - 17.2 g/dL [facility] Comment:Testing performed by : [place] [address] Hct 35.4(L) 40.7 - 50.3 % [facility] Comment:Testing performed by : [place] [address] Plt 362 140 - 440 K/cumm [facility] Comment:Testing performed by : [place] [address] MPV 7.2 6.8 - 10.4 fL [facility] Comment:Testing performed by : [place] [address] RBC 4.30(L) 4.50 - 5.70 M/cumm [facility] Comment:Testing performed by : [place] [address] MCV 82.2 80.0 - 97.6 fL [facility] Comment:Testing performed by : [place] [address] MCH 28.6 26.7 - 33.7 pg [facility] Comment:Testing performed by : [place] [address] MCHC 34.8 32.7 - 35.5 g/dL [facility] Comment:Testing performed by : [place] [address] RDW CV 15.4(H) 11.8 - 14.6 % [facility] Comment:Testing performed by : [place] [address] NRBC abs 0.00 0.00 - 0.01 K/cumm [facility] Comment:Testing performed by : [place] [address] Blood specimen (specimen) 10/18/2018 1:55 PM CDT 10/18/2018 1:57 PM CDT Gautam Cope MD LAB BLOOD ORDERABLES Final Resul t Performing Organization Address [facility] de Phone Number [facility] Department [place] [address] * (ABNORMAL) Hemoglobin A1c (10/18/2018 1:53 PM CDT) Hgb A1C 8.5(H) 4.0 - 5.6 % [facility] Estimated Average Glucose 197 mg/dL [facility] Comment: The ADA recommends reporting an estimated Average Glucose (eAG) with all Hemoglobin A1c results using the equation derived from a study of 507 normal and diabetic adults. ??Minority populations were underrepresented and children were not included. ?? (Diabetes Care 31:3231-0579, 2007). ??The eAG is not equivalent to a fasting glucose. Blood specimen (specimen) 10/18/2018 1:53 PM CDT 10/18/2018 2:18 PM CDT Gautam Cope MD LAB BLOOD ORDERABLES Final Resul t Performing Organization Address [facility] de Phone Number [facility] Department [place] [address] * (ABNORMAL) Comprehensive metabolic panel (10/18/2018 1:50 PM CDT) Sodium 136 135 - 145 mmol/L [facility] Potassium, pl 5.2(H) 3.3 - 4.9 mmol/L [facility] Chloride 104 97 - 110 mmol/L [facility] CO2 25 22 - 32 mmol/L [facility] Anion gap 7 2 - 15 mmol/L [facility] BUN 34(H) 8 - 25 mg/dL [facility] Creatinine 1.66(H) 0.80 - 1.30 mg/dL [facility] Glucose 190 70 - 199 mg/dL [facility] Comment: Interpretive Data Fasting glucose [...] interpretive data was last revised 2017. Calcium 9.7 8.5 - 10.3 mg/dL [facility] Bilirubin, total 0.3 0.1 - 1.2 mg/dL [facility] Protein, pl 7.0 6.5 - 8.5 g/dL [facility] Albumin 4.3 3.5 - 5.0 g/dL [facility] Alk phos 103 40 - 130 Units/L [facility] ALT 30 7 - 55 Units/L [facility] AST 22 10 - 50 Units/L [facility] Blood specimen (specimen) 10/18/2018 1:50 PM CDT 10/18/2018 2:19 PM CDT Gautam Cope MD LAB BLOOD ORDERABLES Final Resul t Performing Organization Address City/[facility] Co de Phone Number [facility] Department [place] [employer] [place] [address] * Lactate dehydrogenase (LD) (10/18/2018 1:50 PM CDT) Pathologist [facility] Lactate dehydrogenase (LDH) 170 100 - 250 Units/L [facility] Blood specimen (specimen) 10/18/2018 1:50 PM CDT 10/18/2018 2:19 PM CDT Gautam Cope MD LAB BLOOD ORDERABLES Final Resul t Performing Organization Address City/[facility] Co de Phone Number [facility] [employer] [address] * PSA diagnostic (10/18/2018 1:50 PM CDT) PSA-Total 1.28 <=6.20 ng/mL [facility] Comment: Interpretive Data ?AGE ? SEX ?REFERENCE INTERVAL 0 minutes-150 years ?Female ?None 0 minutes-49 years ? Male ?None ? 50-59 years ? Male ?0-3.90 ? 60-69 years ? Male ?0-5.40 ? 70-79 years ? Male ?0-6.20 ? 80-150 years ?Male ?0-6.20 Current interpretive data last revised 2017. Blood specimen (specimen) 10/18/2018 1:50 PM CDT 10/18/2018 2:19 PM CDT Gautam Cope MD LAB BLOOD ORDERABLES Final Resul t Performing Organization Address City/State/[facility] Co de Phone Number [facility] Department [place] [address] * (ABNORMAL) Testosterone (10/18/2018 1:43 PM CDT) Testosterone 10(L) 221 - 716 ng/dL [facility] Comment: Interpretive Data Male: Age 21-49 years: 240 ? 870 ng/dL Age 50-77 years: 221 ? 716 ng/dL Female: Age 21-49 years: 14 ? 53 ng/dL Age 50-82 years: 12 ? 36 ng/dL Current interpretive data was last revised on 18. Blood specimen (specimen) 10/18/2018 1:43 PM CDT 10/18/2018 2:03 PM CDT Gautam Cope MD LAB BLOOD ORDERABLES Final Resul t [facility] Department [place] [address] documented in this encounter Visit Diagnoses Diagnosis Prostate cancer (HCC) Malignant neoplasm of prostate documented in this encounter Orders Appointment Requests Count Last Ordered Date Fi rst Ordered Date ONCBCN LAB APPOINTMENT 1 10/18/2018 documented in this encounter Care Teams Sneller Hand Relationship Specialty Start Date End Date Kraig Ching MD [address] [place] [address] PCP - General 07/10/16 Gautam Cope MD [address] [place] [address] Medical Oncologist/Product Assembler Medical Oncology 08/18/18 Tramaine Roe MD [address] [place] [address] Referring Physician Urology 08/18/18 Sukhwinder Uribe MD [address] [place] [address] Consulting Physician Urology 08/18/18 Shay Guillermo MD [address] [place] [address] Referring Physician Urology 08/18/18 documented as of this encounter
--- OUTSIDE RECORDS SUMMARY | 2024-03-31 05:02 | XMS_ITS | Encounter Summary ---
Author Organization [facility] Address [address] [place] [address] Phone Care Team Providers Care Family And Consumer Education Teacher Name Role Phone Kraig Ching MD Primary Care Provider [phone] Gautam Cope MD Unavailable Tramaine Roe MD Unavailable [phone] Sukhwinder Uribe MD Unavailable [phone] Shay Guillermo MD Unavailable [phone] Reason for Visit * Reason Onset Date Comments Starting abiraterone 10/20/2018 he doesnt w ant to start October 28 Encounter Details Date Type Department Care Team (Late st Contact Info) Description 10/20/2018 Documentation [facility] Oncology [address] [facility] 7th [place] [address] [place] [id number] Muna Saleem RN Starting abiraterone (he doesnt want to start October 28) Social History Tobacco Use Types Packs/Day Years Used Date Smoking Tobacco: Former Smokeless Tobacco: Never Comments:Smoking History Pac ks/day: 10 Cigarettes Alcohol Use Standard Drinks/Week Comments Yes 0 (1 standard drink = 0.6 oz pur e alcohol) Occasional glass of wine. 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 Patient states this is affordable and told me to order it and the prednisone but he doesn't want to come pick it up til 12-29 because that is the day he needs to be here anyway for a Dr appt of some kind. I said ok and typed that in notes to our pharm. He just happens to have an appt already on 12-06-18, so we will be sure to get a cmp that day. documented in this encounter Plan of Treatment Not on file documented as of this encounter Goals Goal Patient Goal Type Associated Problems Recent Progress Patient-Stated? Author CCM Chronic Pain Care Plan Chronic Care Management No change(03/23 1:47 PM NEUROLOGY STROKE PHYSICIAN) No Ingrid Oden RN Note: Problem: Chronic Pain Goals: 1. Minimize further functional decline 2. Maximize quality of life 3. Control pain Strategies: - Activity/exercise program recommendation - Conservative stepwise pain medicine strategy with multi-disciplinary approach - Recommend healthy lifestyle strategies and compensatory methods as needed documented as of this encounter Visit Diagnoses Not on filedocumented in this encounter Care Teams Family And Consumer Education Teacher Relationship Specialty Start Date End Date Kraig Ching MD [address] [facility] [facility] [facility] [address] [place] [address] PCP - General 07/10/16 Gautam Cope MD [address] [facility] [facility] [address] [place] [address] Medical Oncologist/Autocad Designer Medical Oncology 08/18/18 Tramaine Roe MD [address] [facility] [address] [place] [address] Referring Physician Urology 08/18/18 Sukhwinder Uribe MD [address] [facility] [address] [place] [address] Consulting Physician Urology 08/18/18 Shay Guillermo MD [address] [facility] [address] [place] [address] Referring Physician Urology 08/18/18 documented as of this encounter
--- OUTSIDE RECORDS SUMMARY | 2024-03-31 05:02 | XMS_ITS | Encounter Summary ---
Author Organization [facility] Address [address] [place] [address] Phone Care Team Providers Care Electrical Products Sales Engineer Name Role Phone Kraig Ching MD Primary Care Provider [phone] Gautam Cope MD Unavailable Tramaine Roe MD Unavailable [phone] Sukhwinder Uribe MD Unavailable [phone] Shay Guillermo MD Unavailable [phone] Encounter Details Date Type Department Care Team (Late st Contact Info) Description 10/20/2018 Orders Only [facility] Oncology [address] [facility] 7th [place] [address] [place] [address] Muna Saleem RN Social History Tobacco Use Types Packs/Day Years Used Date Smoking Tobacco: Former Smokeless Tobacco: Never Comments:Smoking History Pac ks/day: 10 Cigarettes Alcohol Use Standard Drinks/Week Comments Yes 0 (1 standard drink = 0.6 oz pur e alcohol) Occasional glass of wine. Sex and Gender Information Value Date Recorded Sex Assigned at Not on file Legal Sex Male 4:46 PM INFORMATION CONSULTANT Gender Identity Not on file Sexual Orientation Not on file documented as of this encounter Plan of Treatment Not on file documented as of this encounter Goals Goal Patient Goal Type Associated Problems Recent Progress Patient-Stated? Author CCM Chronic Pain Care Plan Chronic Care Management No change(03/23 1:47 PM INFORMATION CONSULTANT) No Ingrid Oden, SHEA Note: Problem: Chronic Pain Goals: 1. Minimize further functional decline 2. Maximize quality of life 3. Control pain Strategies: - Activity/exercise program recommendation - Conservative stepwise pain medicine strategy with multi-disciplinary approach - Recommend healthy lifestyle strategies and compensatory methods as needed documented as of this encounter Visit Diagnoses Not on filedocumented in this encounter Care Teams Electrical Products Sales Engineer Relationship Specialty Start Date End Date Kraig Ching MD [address] [place] [address] PCP - General 07/10/16 Gautam Cope MD [address] [place] [address] Medical Oncologist/Problem Manager Medical Oncology 08/18/18 Tramaine Roe MD [address] [place] [address] Referring Physician Urology 08/18/18 Sukhwinder Uribe MD [address] [place] [address] Consulting Physician Urology 08/18/18 Shay Guillermo MD [address] [place] [address] Referring Physician Urology 08/18/18 documented as of this encounter
--- OUTSIDE RECORDS SUMMARY | 2024-03-31 05:02 | XMS_ITS | Encounter Summary ---
Author Organization [facility] Address [address] [facility] [address] [place] [address] Care Team Providers Care Parish Worker Name Role Phone Kraig Ching MD Primary Care Provider [phone] Gautam Cope MD Unavailable Tramaine Roe MD Unavailable [phone] Sukhwinder Uribe MD Unavailable [phone] Shay Guillermo MD Unavailable [phone] Reason for Visit * Reason Onset Date Comments Chest Wall Pain 11/10/2018 Encounter Details Date Type Department Care Team (Late st Contact Info) Description 11/10/2018 Nurse Triage [facility] [address] [facility] [address] [place] [address] Kraig Ching MD [address] [facility] [address] [place] [address] Social History Tobacco Use Types Packs/Day Years Used Date Smoking Tobacco: Former Smokeless Tobacco: Never Comments:Smoking History Pac ks/day: 10 Cigarettes Alcohol Use Standard Drinks/Week Comments Yes 0 (1 standard drink = 0.6 oz pur e alcohol) Occasional glass of wine. 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 Pt scheduled to see Sue11/17 as requested. 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 Denied chest pain, sob, nausea, vomiting, fever, dizziness, swelling, redness, or rash. Declined appointment and is requesting medication sent to [facility]. Home care/call back instructions given. Routed to PCP's clinical group. Reason for Disposition ??? Intermittent mild chest pain lasting a few seconds each time Protocols used: CHEST [id number]-UE * Telephone Encounter - Natasha Little, SHEA - 11/10/2018 3:17 PM CDT Regarding: Right Sided below rib cage pain ----- Message from Lanie Latham sent at 11/10/2018 3:09 PM CDT ----- Symptom Based Call Chief Complaint: Right Sided below rib cage pain Duration: Since Wednesday Appointment Details: Red Flag Caller's Callback #: [phone] Additional Comments: Patient is currently undergoing cancer treatment and Wednesday patient has started having right side pain below or lower rib cage. Pain is severe. is concerned. Please call back patient is with her. If practice uses e-visit, condition meets e-visit criteria, and patient has MyChart did you offer e-visit?: n/a Did you relay expectation for call back (information systems director: Red Flag 10-15 min; non- emergent up to 3 hours)(Practice: Red Flag warm transfer; non-emergent up to 24 hours)? yes documented in this encounter Plan of Treatment Not on file documented as of this encounter Goals Goal Patient Goal Type Associated Problems Recent Progress Patient-Stated? 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 Minimize further functional decline 2. Maximize quality of life 3. Control pain Strategies: - Activity/exercise program recommendation - Conservative stepwise pain medicine strategy with multi-disciplinary approach - Recommend healthy lifestyle strategies and compensatory methods as needed documented as of this encounter Visit Diagnoses Not on filedocumented in this encounter Care Teams Parish Worker Relationship Specialty Start Date End Date Kraig Ching MD [address] [place] [address] PCP - General 07/10/16 Gautam Cope MD [address] [place] [address] Medical Oncologist/Medical Billing And Coding Instructor Medical Oncology 08/18/18 Tramaine Roe MD [address] [place] [address] Referring Physician Urology 08/18/18 Sukhwinder Uribe MD [address] [place] [address] Consulting Physician Urology 08/18/18 Shay Guillermo MD [address] [place] [address] Referring Physician Urology 08/18/18 documented as of this encounter
--- OUTSIDE RECORDS SUMMARY | 2024-03-31 05:02 | XMS_ITS | Encounter Summary ---
Author Organization [facility] Address [address] [place] [address] Phone Care Team Providers Care Life Science Research Assistant Name Role Phone Kraig Ching MD Primary Care Provider [phone] Gautam Cope MD Unavailable Tramaine Roe MD Unavailable [phone] Sukhwinder Uribe MD Unavailable [phone] Shay Guillermo MD Unavailable [phone] Reason for Visit * Consultation (Routine) - Authorized Specialty Diagnoses / Procedures Referred By Contac t Referred To Contact Oncology Diagnoses Prostate cancer (HCC) Tramaine Roe MD [address] [facility] [address] [place] [address] Phone: tel: fax: Gautam Cope MD [address] [facility] [place] [address] Phone: tel: fax: Referral ID Status Reason Start Date Expiration Date Visits Requested Visits Authorized [id number] Authorized Specialty Services Required 08/15/2018 04/11/2024 99 99 Encounter Details Date Type Department Care Team (Late st Contact Info) Description 09/06/2018 3:30 PM CDT Lab [facility] 7th Floor [address] [place] [address] Prostate cancer (CMS/HCC) Social History Tobacco Use Types Packs/Day Years Used Date Smoking Tobacco: Former Smokeless Tobacco: Former Comments:Smoking History Pac ks/day: 10 Cigarettes Alcohol Use Standard Drinks/Week Comments No 0 (1 standard drink = 0.6 oz pur e alcohol) quit 09/2017 Sex and Gender Information Value Date Recorded Sex Assigned at Not on file 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 Gender Identity Not on file Sexual Orientation Not on file documented as of this encounter Plan of Treatment Not on file documented as of this encounter Procedures Procedure Name Priority Date/Time Associated Diagnosis Comments PSA DIAGNOSTIC Routine 09/06/2018 3:45 PM CDT Prostate cancer (CMS/HCC) LACTATE DEHYDROGENASE Routine 09/06/2018 3:45 PM CDT Prostate cancer (CMS/HCC) COMPREHENSIVE METABOLIC PANEL Routine 09/06/2018 3:45 PM CDT Prostate cancer (CMS/HCC) DIFFERENTIAL AUTO Routine 09/06/2018 3:4 4 PM CDT Prostate cancer (CMS/HCC) CBC WITH AUTO DIFFERENTIAL Routine 09/06/2018 3:44 PM CDT Prostate cancer (CMS/HCC) TOTAL TESTOSTERONE Routine 09/06/2018 3: 44 PM CDT Prostate cancer (CMS/HCC) documented in this encounter Results * (ABNORMAL) Comprehensive metabolic panel (09/06/2018 3:45 PM CDT) Sodium 138 135 - 145 mmol/L [facility] Potassium, pl 4.2 3.3 - 4.9 mmol/L [facility] Chloride 100 97 - 110 mmol/L [facility] CO2 26 22 - 32 mmol/L [facility] Anion gap 12 2 - 15 mmol/L [facility] BUN 34(H) 8 - 25 mg/dL [facility] Creatinine 1.54(H) 0.80 - 1.30 mg/dL [facility] Glucose 147 70 - 199 mg/dL [facility] [...] 2017. Calcium 9.7 8.5 - 10.3 mg/dL [facility] Bilirubin, total 0.2 0.1 - 1.2 mg/dL [facility] Protein, pl 7.6 6.5 - 8.5 g/dL [facility] Albumin 4.5 3.5 - 5.0 g/dL [facility] Alk phos 109 40 - 130 Units/L [facility] ALT 27 7 - 55 Units/L [facility] AST 23 10 - 50 Units/L [facility] Blood specimen (specimen) 09/06/2018 3:45 PM CDT 09/06/2018 4:14 PM CDT Narrative [facility] - 09/06/2018 5:11 PM CDT us Gautam Cope MD LAB BLOOD ORDERABLES Final Resul t Performing Organization Address [facility] Co de Phone Number [facility] [place] [place] [address] * Lactate dehydrogenase (LD) (09/06/2018 3:45 PM CDT) Lactate dehydrogenase (LDH) 162 100 - 250 Units/L [facility] Blood specimen (specimen) 09/06/2018 3:45 PM CDT 09/06/2018 4:14 PM CDT Narrative [facility] - 09/06/2018 5:11 PM CDT us Gautam Cope MD LAB BLOOD ORDERABLES Final Resul t Performing Organization Address City/[facility]/ZIP Co de Phone Number [facility] [place] [address] * (ABNORMAL) PSA diagnostic (09/06/2018 3:45 PM CDT) Pathologist [facility] PSA-Total 10.67(H) <=6.20 ng/mL [facility] Comment: Interpretive Data ?AGE ? SEX ?REFERENCE INTERVAL 0 minutes-150 years ?Female ?None 0 minutes-49 years ? Male ?None ? 50-59 years ? Male ?0-3.90 ? 60-69 years ? Male ?0-5.40 ? 70-79 years ? Male ?0-6.20 ? 80-150 years ?Male ?0-6.20 Current interpretive data last revised 2017. Blood specimen (specimen) 09/06/2018 3:45 PM CDT 09/06/2018 4:[address] [facility] - 09/06/2018 5:17 PM CDT us Gautam Cope MD LAB BLOOD ORDERABLES Final Resul t [facility] [place] [address] * Differential, auto (09/06/2018 3:44 PM CDT) [facility] Neutrophil abs 6.1 1.8 - 6.6 K/cumm [facility] Comment:Testing performed by : [facility], [address] [place] [phone] Lymphocyte abs 2.2 1.2 - 3.3 K/cumm [facility] Comment:Testing performed by : [facility], [address] [place] [phone] Monocyte abs 1.0 0.2 - 1.2 K/cumm [facility] Comment:Testing performed by : [facility], [address] [place] [phone] Eosinophil abs 0.4 0.0 - 0.5 K/cumm [facility] Comment:Testing performed by : [facility], [address] [place] [phone] Basophil abs 0.1 0.0 - 0.2 K/cumm [facility] Comment:Testing performed by : [facility], [address] [place] [phone] Neutrophil pct 62.8 % [facility] Comment: Interpretive Data Percent cell count reference ranges are not reported, since discordance with absolute values may lead to misinterpretation of CBC data. Current Interpretive Data was last revised on 2017. Testing performed by: [facility], [address] [place] [phone] Lymphocyte pct 22.7 % [facility] Comment: Interpretive Data Percent cell count reference ranges are not reported, since discordance with absolute values may lead to misinterpretation of CBC data. Current Interpretive Data was last revised on 2017. Testing performed by: [facility], [address] [place] [phone] Monocyte pct 9.9 % [facility] Comment:Testing performed by : [address] [phone] Eosinophil pct 3.8 % [facility] Comment:Testing performed by : [facility], [address] [place] [phone] Basophil pct 0.8 % [facility] Comment:Testing performed by : [address] [phone] Blood specimen (specimen) 09/06/2018 3:44 PM CDT 09/06/2018 3:47 [address] [facility] - 09/06/2018 3:51 PM CDT us Gautam Cope MD LAB BLOOD ORDERABLES Final Resul t [facility] Department [place] [address] * (ABNORMAL) CBC with auto differential (09/06/2018 3:44 PM CDT) WBC 9.8 3.8 - 9.8 K/cumm [facility] Comment:Testing performed by : [facility], [address] [place] [phone] Hgb 12.5(L) 13.8 - 17.2 g/dL [facility] Comment:Testing performed by : [facility], [address] [place] [phone] Hct 36.9(L) 40.7 - 50.3 % [facility] Comment:Testing performed by : [address] [phone] Plt 432 140 - 440 K/cumm [facility] Comment:Testing performed by : [facility], [address] [place] [phone] MPV 7.1 6.8 - 10.[address] [facility] [facility] Comment:Testing performed by : [address] [phone] RBC 4.54 4.50 - 5.70 M/cumm [facility] Comment:Testing performed by : [address] [phone] MCV 81.5 80.0 - 97.6 fL [facility] Comment:Testing performed by : [facility], [address] [place] [phone] MCH 27.6 26.7 - 33.7 pg [facility] Comment:Testing performed by : [address] [address] MCHC 33.9 32.7 - 35.5 g/dL [facility] Comment:Testing performed by : [address] [address] RDW CV 15.1(H) 11.8 - 14.6 % [facility] Comment:Testing performed by : [facility], [address] [facility] [phone] NRBC abs 0.01 0.00 - 0.01 K/cumm [facility] Comment:Testing performed by : [facility], [address] [facility] [phone] Blood specimen (specimen) 09/06/2018 3:44 PM CDT 09/06/2018 3:[address] [facility] - 09/06/2018 3:51 PM CDT Gautam Cope MD LAB BLOOD ORDERABLES Final Resul t Performing Organization Address [facility] de Phone Number [facility] [place] [address] * Testosterone (09/06/2018 3:44 PM CDT) Testosterone 271 241 - 827 ng/dL [facility] Comment: Interpretive Data Male: ??Age 19-71 yrs: ?? 241 - 827 ng/dL Female: ??Age 15-75 yrs: ?? 14 - 76 ng/dL Current interpretive data was last revised on 2012. Blood specimen (specimen) 09/06/2018 3:44 PM CDT 09/06/2018 4:00 PM CDT Narrative [facility] - 09/06/2018 6:09 PM CDT Gautam Cope MD LAB BLOOD ORDERABLES Final Resul t Performing Organization Address [facility] Co de Phone Number [facility] [place] [address] documented in this encounter Visit Diagnoses Diagnosis Prostate cancer (HCC) Malignant neoplasm of prostate documented in this encounter Orders Appointment Requests Count Last Ordered Date Fi rst Ordered Date ONCBCN LAB APPOINTMENT 1 09/06/2018 documented in this encounter Care Teams Life Science Research Assistant Relationship Specialty Start Date End Date Kraig Ching MD [address] [facility] [address] [place] [address] PCP - General 07/10/16 Gautam Cope MD [address] [facility] [address] [place] [address] Medical Oncologist/Fitter Hand Medical Oncology 08/18/18 Tramaine Roe MD [address] [facility] [address] [place] [address] Referring Physician Urology 08/18/18 Sukhwinder Uribe MD [address] [facility] [address] [place] [address] Consulting Physician Urology 08/18/18 Shay Guillermo MD [address] [facility] [address] [place] [address] Referring Physician Urology 08/18/18 documented as of this encounter
--- OUTSIDE RECORDS SUMMARY | 2024-03-31 05:02 | XMS_ITS | Encounter Summary ---
Author Organization [facility] Healthcare Address [address] [place] [address] Care Team Providers Care Laboratory Apparatus Glass Blower Name Role Phone Kraig Ching MD Primary Care Provider [phone] Gautam Cope MD Unavailable Tramaine Roe MD Unavailable [phone] Sukhwinder Uribe MD Unavailable [phone] Shay Guillermo MD Unavailable [phone] Reason for Visit * Reason Comments Chronic Pain Encounter Details Date Type Department Care Team (Latest Contact Info) Description 09/15/2018 1:43 PM CDT - 09/15/2018 1:54 PM CDT Hospital Encounter [facility] [address] [facility] [address] [place], [place] [id number] Maru Arreola MD PhD [address] [facility] [phone] [place], [place] [id number] Spinal stenosis of lumbar region with neurogenic [...] file Legal Sex Male 4:46 PM FAMILY PHYSICIAN Gender Identity Not on file Sexual Orientation Not on file documented as of this encounter Last Filed Vital Signs Vital Sign Reading Time Taken Comments Blood Pressure 144/71 09/15/2018 4:24 PM CDT Pulse 67 09/15/2018 4:24 PM CDT Temperature 36.7 ??C (98 ??F) 09/15/2018 2:20 PM CDT Respiratory Rate 18 09/15/2018 4:24 PM CDT Oxygen Saturation - - Inhaled Oxygen Concentration - - Weight 98 kg (216 lb) 09/15/2018 2:20 PM CDT Height 177.8 cm (5' 10 ) 09/15/2018 2:20 PM CDT Body Mass Index 30.99 09/15/2018 2:20 PM CDT documented in this encounter Discharge Instructions * Discharge Instructions* Jayla Adam, RN - 09/15/2018 3:36 PM CDT PAIN MANAGEMENT CENTER ([facility]) DISCHARGE INSTRUCTIONS MEDICATIONS: [x] Continue your current home medications Start: Gabapentin 100 mg at bedtime [x] Notify your pharmacy for refill(s) 7 days before you are out of your medication. [] Opioid (Narcotic) Agreement signed and patient received copy. [] Side Effects of Opioid Medications given to patient Resume blood thinner: N/A PROCEDURE at today's visit: Left Lumbar Selective Nerve Root Injection PAIN MANAGEMENT CENTER PATIENT EDUCATION POST-PROCEDURE INFORMATION [...] some extra soreness at the injection site. ??? After the numbing medicine wears off, your pain may return until the steroid starts working. If you have any questions or problems, please call the Pain Management Center at ??? For emergencies after 4:00 p.m., you should call the hospital communication center operator at and ask to speak with the Pain Service doctor resource conservation specialist. DIET: [x] Resume normal diet [] See [facility] Post Discharge Procedure Information Sheet ACTIVITY: [] Resume normal activity [x] See [facility] Post Discharge Procedure Information Sheet REFERRALS: Physical Therapy [] [facility] ([phone]) [] GMI (Graded Motor Imagery) [] [facility] ([phone]) [] Other: Behavior Medicine [] Pain Psychologist, [facility] Pain Psychology Please call to schedule appointment [phone] or [phone] Diagnostic Test(s): EDUCATION provided on the following: [] Spinal Cord Stimulator Education and DVD. Vendor: FOLLOW UP APPOINTMENTS: [] Return as needed [x] Follow up appointment: 1 month We will contact you the next business day to obtain: [] An update on your condition [] Your Pain diary scores [x] Procedure at your next visit : Same procedure INSTRUCTIONS before your next procedure: [] See [facility] Pre-Procedure Information Sheet [] Do not eat for six (6) hours or drink for three (3) hours before the time/date of the procedure. [] Inquire with your prescribing provider if ok to hold blood thinner for days before procedure. [] Blood work required 2 hours before procedure: [] Escalator Attendant needed for next procedure Patient provided information and repeated back with understanding. If you need to reach us: For any questions about your procedure, please call the Pain Management Center [phone] ([phone]) (8am-4pm) If you need urgent attention after 5 pm and weekends: Call the [facility] Spanish Medical Interpreter at [phone] and ask for the Pain Service doctor resource conservation specialist. Gabapentin (By mouth) Gabapentin ([id number]-j-PPC-tin) Treats seizures and pain caused by shingles. Brand Name(s): ACTIVE-PAC with Gabapentin, Convenience German, Cyclo/Sushil 10/300 Pack, FusePaq Fanatrex, Sushil-V, Gralise, Gralise Starter Pack, Neurontin, SmartRx Sushil Kit There may be other brand names for this medicine. When This Medicine Should Not Be Used: This medicine is not right for everyone. Do not use it if you had an allergic reaction to gabapentin. How to Use This Medicine: Capsule, Liquid, Tablet ?? Take your medicine as directed. Your dose may need to be changed several times to find what works best for you. If you have epilepsy, do not allow more than 12 hours to pass between doses. ?? Capsule: Swallow the capsule whole with plenty of water. Do not open, crush, or chew it. ?? Gralise?? tablet: Swallow the tablet whole . Do not crush, break, or chew it. ?? Neurontin?? tablet: If you break a tablet into 2 pieces, use the second half as your next dose. If you don't use it within 28 days, throw it away. ?? Measure the oral liquid medicine with a marked measuring spoon, oral syringe, or medicine cup. ?? This medicine should come with a Medication Guide. Ask your pharmacist for a copy if you do not have one. ?? Missed dose: Take a dose as soon as you remember. If it is almost time for your next dose, wait until then and take a regular dose. Do not take extra medicine to make up for a missed dose. ?? Store the medicine in a closed container at room temperature, away from heat, moisture, and direct light. Store the Neurontin?? oral liquid in the refrigerator. Do not freeze. Drugs and Foods to Avoid: Ask your doctor or pharmacist before using any other medicine, including [id number] medicines, vitamins, and herbal products. ?? Some medicines can affect how gabapentin works. Tell your doctor if you also use any of the following: ?? Hydrocodone ?? Morphine ?? If you take an antacid, wait at least 2 hours before you take gabapentin. ?? Tell your doctor if you use anything else that makes you sleepy. Some examples are allergy medicine, narcotic pain medicine, and alcohol. Warnings While Using This Medicine: ?? Tell your doctor if you are or , or if you have kidney problems or are receiving dialysis. Tell your doctor if you have a history of depression or mental health problems. ?? This medicine may increase depression or thoughts of suicide. Tell your doctor right away if youstart to feel more depressed or think about hurting yourself. ?? This medicine may cause a serious allergic reaction called multiorgan hypersensitivity, which can damage organs and be life-threatening. ?? Do not stop using this medicine suddenly. Your doctor will need to slowly decrease your dose before you stop it completely. If you take this medicine to prevent seizures, your seizures may return or occur more often if you stop this medicine suddenly. ?? This medicine may make you dizzy or drowsy. Do not drive or do anything else that could be dangerous until you know how this medicine affects you. ?? Tell any doctor or dentist who treats you that you are using this medicine. This medicine may affect certain medical test results. ?? Your doctor will check your progress and the effects of this medicine at regular visits. Keep all appointments. ?? Keep all medicine out of the reach of children. Never share your medicine with anyone. Possible Side Effects While Using This Medicine: Call your doctor right away if you notice any of these side effects: ?? Allergic reaction: Itching or hives, swelling in your face or hands, swelling or tingling in your mouth or throat, chest tightness, trouble breathing ?? Behavior problems, aggression, restlessness, trouble concentrating, moodiness (especially in children) ?? Blistering, peeling, red skin rash ?? Change in how much or how often you urinate, bloody or cloudy urine, ?? Chest pain, fast heartbeat, trouble breathing ?? Dark urine or pale stools, nausea, vomiting, loss of appetite, stomach pain, yellow skin or eyes ?? Fever, rash, swollen or tender glands in the neck, armpit, or groin ?? Problems with coordination, shakiness, unsteadiness ?? Rapid weight gain, swelling in your hands, ankles, or feet ?? Unusual moods or behaviors, thoughts of hurting yourself, feeling depressed If you notice these less serious side effects, talk with your doctor: ?? Dizziness, drowsiness, sleepiness, tiredness If you notice other side effects that you think are caused by this medicine, tell your doctor. Call your doctor for medical advice about side effects. You may report side effects to FDA at 2-987-BBU-6556 ?? 2016 [employer] Information is for End User's use only and may not be sold, redistributed or otherwise used for commercial purposes. The above information is an recreational aide only. It is not intended as medical advice for individual conditions or treatments. Talk to your doctor, nurse or pharmacist before following any medical regimen to see if it is safe and effective for you. documented in this encounter Medications at Time [...] MOUTH DAILY 90 tablet 1 06/12/2018 12/06/2018 insulin glargine (LANTUS U-100 INSULIN) 100 unit/mL [...] mg total) by mouth daily. 30 tablet 11/26/2017 11/11/2018 SITagliptin (JANUVIA) 25 mg tabletIndication s:type 2 diabetes mellitus Take 1 tablet (25 mg total) by mouth daily. 30 tablet 11 11/25/2017 11/11/2018 TRAVATAN Z 0.004 % drops INT 1 DROP INTO OU QHS 5 12/28/2017 11/17/2022 documented as of this encounter Ordered Prescriptions Prescription Sig Dispense Quantity Refills Last Filled Start Date End Date gabapentin (NEURONTIN) 100 mg capsuleIndications :Neuropathic Pain Take 1 capsule (100 mg total) by mouth nightly 30 capsule 09/15/2018 0 documented in this encounter Discharge Disposition Disposition Code Departure Means Destination Discharge to home or self care documented in this encounter Progress Notes * Maru Arreola MD PhD - 09/15/2018 2:00 PM CDT Patient Name: David Wei : 1940 Today's Date: 09/15/2018 PCP: Kraig Ching MD Referring: No ref. provider found Chief Complaint Patient presents with ??? Chronic Pain HPI HISTORICAL INFO: Mr. David Wei [...] Pain Procedures: 09/15/18: LSNR at bilateral L4/5 INTERVAL HISTORY (09/15/2018): Mr. David Wei returns to care for persistent back pain. He reports no new numbness, weakness, bowel/bladder incontinence. Since the last visit, the pain is unchanged. He is s/p gabapentin 300mg QHS, which provided minimal relief and causes drowsiness. Pt notes he might not have given it a fair trial. He denies any side effects to current pain medications. The pain is constant and described as He rates his pain at 4/10 on average. The pain increases with gardening, physical activity and decreases with rest. His ADLs are difficult, but manageable on his own. Current Pain meds: Pain Medications gabapentin (NEURONTIN) 100 mg capsule Take 1 capsule (100 mg total) by mouth nightly Review of Systems Pt denies appetite changes, weight changes, upset stomach, constipation, urinary chagnes, sexual function concerns, change in physical activity, sleep or mood changes, financial concerns. All ROS negative except HPI. Patient's Medications New Prescriptions No medications on file Previous Medications ACCU-CHEK FASTCLIX LANCET DRUM MISC TEST BLOOD SUGAR BID Authorizing Provider: Historical ProviderMD Notes: -- ASPIRIN 81 MG TABLET Take 1 tablet (81 mg total) by mouth daily. Authorizing Provider: Kraig Ching MD Notes: -- BD ULTRA-FINE SHORT PEN NEEDLE 31 GAUGE X 5/16 NEEDLE USE TO INJECT INSULIN ONCE DIALY Authorizing Provider: Coleen Salas MD Notes: -- BICALUTAMIDE (CASODEX) 50 MG TABLET Take 1 tablet (50 mg total) by mouth daily Authorizing Provider: Gautam Cope MD Notes: -- BLOOD GLUCOSE DIAGNOSTIC STRIP Authorizing Provider: Coleen Salas MD Notes: -- CHLORTHALIDONE 25 MG TABLET Take 1/2 tablet daily (12.5 mg) Authorizing Provider: Conchis Chapin MD Notes: -- DILTIAZEM (CARDIZEM) 120 MG TABLET TAKE 1 TABLET BY MOUTH DAILY Authorizing Provider: Kraig Ching MD Notes: -- INSULIN GLARGINE (LANTUS U-100 INSULIN) 100 UNIT/ML INJECTION Injected daily as directed. Authorizing Provider: SIERRA Landry Notes: -- LISINOPRIL (PRINIVIL,ZESTRIL) 40 MG TABLET Take 1 tablet (40 mg total) by mouth daily Authorizing Provider: Lillian Cruz MD Notes: -- METFORMIN (GLUCOPHAGE) 500 MG TABLET Take 1 tablet (500 mg total) by mouth 2 (two) times a day withmeals. Authorizing Provider: SIERRA Landry Notes: -- ONETOUCH ULTRA BLUE TEST STRIP STRIP TEST SUGAR TWICE DAILY Authorizing Provider: Kraig Ching MD Notes: -- PANTOPRAZOLE DR (PROTONIX) 40 MG EC TABLET Take 1 tablet (40 mg total) by mouth daily. Authorizing Provider: Kraig Ching MD Notes: -- PRAVASTATIN (PRAVACHOL) 20 MG TABLET Take 1 tablet (20 mg total) by mouth daily. Authorizing Provider: Kraig Ching MD Notes: -- SITAGLIPTIN (JANUVIA) 25 MG TABLET Take 1 tablet (25 mg total) by mouth daily. Authorizing Provider: Kraig Ching MD Notes: -- TRAVATAN Z 0.004 % DROPS INT 1 DROP INTO OU QHS Authorizing Provider: Coleen Salas MD Notes: -- Modified Medications Modified Medication Previous Medication GABAPENTIN (NEURONTIN) 100 MG CAPSULE gabapentin (NEURONTIN) 300 mg capsule Take 1 capsule (100 mg total) by mouth nightly Take 1 capsule (300 mg total) by mouth nightly Authorizing Provider: Janes Ramirez MD Authorizing Provider: Maru Arreola MD PhD Notes: -- Notes: -- Discontinued Medications No medications on file No Known Allergies Lab Results Component Value Date WBC 9.8 09/06/2018 HGB 12.5 (L) 09/06/2018 HCT 36.9 (L) 09/06/2018 MCV 81.5 09/06/2018 LABPLAT 432 09/06/2018 Physical Exam: Vitals: 09/15/18 1420 09/15/18 1624 BP: 139/65 144/71 Pulse: 68 67 Resp: 18 18 Temp: 98 ??F (36.7 ??C) Weight: 98 kg (216 lb) Height: 177.8 cm (5' 10 ) Body mass index is 30.99 kg/m??. CONSTITUTIONAL: General appearance normal, nutrition obese, no deformities, good grooming. EARS / NOSE / MOUTH / THROAT: Hearing assessment normal. RESPIRATORY: Normal effort. MUSCULOSKELETAL EXAMINATION: Gait normal. 5/5 strength for hip flexion b/l, 5/5 strength to knee flexion and extension b/l. 5/5 strength to dorsi flexion on left foot, 5/5 to plantar flexion. 5/5 to plantar and dorsi flexion on right foot. Sensation equal b/l. PSYCHIATRIC: Oriented X3, memory intact, and alert. Normal insight and judgement. Normal mood and affect. Speech normal. SKIN: Normal Assessment: The above note documents my personal [...] pain with bilateral sciatica Plan: 1. Interventions: B/L LSNRI L4-L5 today's visit. 2. Medications: ?? Opioids: Opioids are not indicated ?? Adjuvants: Will decrease gabapentin dose to 100 mg nightly to help with daytime sleepiness. Can gradually titrate up to 300 mg nightly. 3. Imaging: No further imaging needed at this current time. 4. Referral: No referrals needed at this current time. 5. Follow-up: in one month for additional B/L LSNRI L4-L5 or to follow up Janes Ramirez MD Resident, Pain Management, Department of Anesthesiology [facility] 09/15/2018 6:32 PM I have seen and examined the patient. I agree with the findings and plan of care as documented in the resident's note. Maru Arreola MD PhD Instructor of Anesthesiology [facility] 09/15/2018 6:32 PM documented in this encounter Miscellaneous Notes * Op Note - Maru Arreola MD PhD - 09/15/2018 6:29 PM CDT Procedure Note Attending Surgeon: Maru Arreola MD PhD Surgical Assistants: Kyree Giron MD Date of Surgery: 09/15/2018 NAME OF PROCEDURE: Lumbar Transforaminal Epidural Steroid [...] Complications: None Maru Arreola MD PhD Date: 09/15/2018 Time: 6:29 PM TEACHING ATTESTATION : I was present and directly participated in the entire procedure (including opening and closing). * Perioperative Nursing Note - Ingrid Oden RN - 09/15/2018 2:27 PM CDT Escalator Attendant - (Rosy). documented in this encounter Plan of Treatment Not on file documented as of this encounter Goals Goal Patient Goal Type Associated Problems Recent Progress Patient-Stated? Author CCM Chronic Pain Care Plan Chronic Care Management No change(03/23 1:47 PM FAMILY PHYSICIAN) No Ingrid Oden RN Note: Problem: [...] Action Date Dose Rate Site bupivacaine (MARCAINE) 0.5 % (5 mg/mL) preservative free injection As needed, Starting on Marisabel 09/15/18 at 1613, Intra-Op Given 09/15/2018 4:13 PM CDT 3 mL dexamethasone (DECADRON) 4 mg/mL injection Administer over 2 Minutes, As needed, Starting on Marisabel 09/15/18 at 1614, Intra-Op Given 09/15/2018 4:14 PM CDT 8 mg iohexol (OMNIPAQUE) 300 mg iodine/mL injection solution As needed, Starting on Marisabel 09/15/18 at 1614, Intra-Op Given 09/15/2018 4:14 PM CDT 3 mL lidocaine (XYLOCAINE) 10 mg/mL (1 %) injection As needed, Starting on Marisabel 09/15/18 at 1615, Intra-Op, Indications: Administration of Local AnesthesiaIndications:Administratio n of Local Anesthesia Given 09/15/2018 4:15 PM CDT 18 mL documented in this encounter Discontinued Medications Medication Sig Discontinue Reason Start Date End Da te gabapentin (NEURONTIN) 300 mg capsuleIndications:Neuro pathic Pain Take 1 capsule (300 mg total) by mouth nightly 09/09/2018 09/15/2018 documented as of this encounter Orders Medications Ordered That Adiel ht Not Have Been Administered Count Last Ordered Date First Ordered Date bupivacaine (MARCAINE) 0.5 % (5 mg/mL) preservative free injection - ADS Override Pull 1 09/15/2018 dexamethasone (DECADRON) 4 m g/mL injection - ADS Override Pull 2 09/15/2018 lidocaine PF (XYLOCAINE) 10 mg/mL (1 %) preservative free injection - ADS Override Pull 1 09/15/2018 documented in this encounter Care Teams Laboratory Apparatus Glass Blower Relationship Specialty Start Date End Date Kraig Ching MD [address] [facility] [address] [place] [address] PCP - General 07/10/16 Gautam Cope MD [address] [facility] [address] [place] [address] Medical Oncologist/Assistant Plant Manager Medical Oncology 08/18/18 Tramaine Roe MD [address] [facility] [address] [place] [address] Referring Physician Urology 08/18/18 Sukhwinder Uribe MD [address] [facility] [address] [place] [address] Consulting Physician Urology 08/18/18 Shay Guillermo MD [address] [facility] [address] [place] [address] Referring Physician Urology 08/18/18 documented as of this encounter
--- OUTSIDE RECORDS SUMMARY | 2024-03-31 05:02 | XMS_ITS | Encounter Summary ---
Author Organization [facility] Address [address] [place] [address] Phone Care Team Providers Care Felt Finishing Supervisor Name Role Phone Kraig Ching MD Primary Care Provider [phone] Gautam Cope MD Unavailable Tramaine Roe MD Unavailable [phone] Sukhwinder Uribe MD Unavailable Shay Guillermo MD Unavailable [phone] Encounter Details Date Type Department Care Team (Late st Contact Info) Description 11/02/2018 Orders Only [facility] Oncology [address] [facility] 7th [place] [address] [place] [address] Muna Saleem RN Social History Tobacco Use Types Packs/Day Years Used Date Smoking Tobacco: Former Smokeless Tobacco: Never Comments:Smoking History Pac ks/day: 10 Cigarettes Alcohol Use Standard Drinks/Week Comments Yes 0 (1 standard drink = 0.6 oz pur e alcohol) Occasional glass of wine. 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 Author CCM Chronic Pain Care Plan Chronic Care Management No change(03/23 1:47 PM NARROW FABRICS WEAVER) No Ingrid Oden, SHEA Note: Problem: Chronic [...] Discontinue Reason Start Date End Da te bicalutamide (CASODEX) 50 mg tabletIndications:metast atic prostate carcinoma Take 1 tablet (50 mg total) by mouth daily Therapy completed 09/06/2018 11/02/2018 documented as of this encounter Care Teams Felt Finishing Supervisor Relationship Specialty Start Date End Date Kraig Ching MD [address] [place] [address] PCP - General 07/10/16 Gautam Cope MD [address] [place] [address] Medical Oncologist/Log Buyer Medical Oncology 08/18/18 Tramaine Roe MD [address] [place] [address] Referring Physician Urology 08/18/18 Sukhwinder Uribe MD [address] [place] [address] Consulting Physician Urology 08/18/18 Shay Guillermo MD [address] [place] [address] Referring Physician Urology 08/18/18 documented as of this encounter
--- OUTSIDE RECORDS SUMMARY | 2024-03-31 05:02 | XMS_ITS | Encounter Summary ---
Author Organization [facility] Healthcare Address [address] [place] [address] Care Team Providers Care Laborer/Grade Check Name Role Phone Kraig Ching MD Primary Care Provider [phone] Gautam Cope MD Unavailable Tramaine Roe MD Unavailable [phone] Sukhwinder Uribe MD Unavailable [phone] Shay Guillermo MD Unavailable [phone] Encounter Details Date Type Department Care Team (Late st Contact Info) Description 08/29/2018 8:00 PM CDT Lab [address] [address] Social History Tobacco Use Types Packs/Day Years Used Date Smoking Tobacco: Former Smokeless Tobacco: Former Comments:Smoking History Pac ks/day: 10 Cigarettes Alcohol Use Standard Drinks/Week Comments No 0 (1 standard drink = 0.6 oz pur e alcohol) quit 09/2017 Sex and Gender Information Value Date Recorded Sex Assigned at Not on file 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 Gender Identity Not on file Sexual Orientation Not on file documented as of this encounter Plan of Treatment Not on file documented as of this encounter Visit Diagnoses Not on filedocumented in this encounter Care Teams Laborer/Grade Check Relationship Specialty Start Date End Date Kraig Ching MD [address] [facility] [address] [place] [address] PCP - General 07/10/16 Gautam Cope MD [address] [facility] [address] [place] [address] Medical Oncologist/Coagulating Bath Mixer Medical Oncology 08/18/18 Tramaine Roe MD [address] [facility] [address] [place] [address] Referring Physician Urology 08/18/18 Sukhwinder Uribe MD [address] [facility] [address] [place] [address] Consulting Physician Urology 08/18/18 Shay Guillermo MD [address] [facility] [address] [place] [address] Referring Physician Urology 08/18/18 documented as of this encounter
--- OUTSIDE RECORDS SUMMARY | 2024-03-31 05:02 | XMS_ITS | Encounter Summary ---
Author Organization [facility] Address [address] [place] [address] Phone Care Team Providers Care Heavy Forger Name Role Phone Kraig Ching MD Primary Care Provider [phone] Gautam Cope MD Unavailable Tramaine Roe MD Unavailable [phone] Sukhwinder Uribe MD Unavailable [phone] Shay Guillermo MD Unavailable Encounter Details Date Type Department Care Team (Late st Contact Info) Description 10/20/2018 Orders Only [facility] Oncology [address] [place] [address] [place] [address] Muna Saleem RN Prostate cancer ([facility]) Social History Tobacco Use Types Packs/Day Years Used Date Smoking Tobacco: Former Smokeless Tobacco: Never Comments:Smoking History Pac ks/day: 10 Cigarettes Alcohol Use Standard Drinks/Week Comments Yes 0 (1 standard drink = 0.6 oz pur e alcohol) Occasional glass of wine. Sex and Gender Information Value Date Recorded Sex Assigned at Not on file Legal Sex Male 4:46 PM [employer] Gender Identity Not on file Sexual Orientation Not on file documented as of this encounter Ordered Prescriptions Prescription Sig Dispense Quantity Refills Last Filled Start Date End Date abiraterone (ZYTIGA) 250 mg tabletIndications: prostate cancer Take 4 tablets (1,000 mg total) by mouth daily Do not eat anything for at least 2 hours before and for at least 1 hour after 120 tablet 11 10/20/2018 9 documented in this encounter Plan of Treatment Not on file documented as of this encounter Goals Goal Patient Goal Type Associated Problems Recent Progress Patient-Stated? Author CCM Chronic Pain Care Plan Chronic Care Management No change(03/23 1:47 PM [employer]) No Ingrid Oden, RN Note: Problem: Chronic [...] ate cancer (HCC) Take 4 tablets (1,000 mg total) by mouth daily Do not eat anything for at least 2 hours before and for at least 1 hour after Reorder 10/18/2018 10/20/2018 documented as of this encounter Care Teams Heavy Forger Relationship Specialty Start Date End Date Kraig Ching MD [address] [place] [address] PCP - General 07/10/16 Gautam Cope MD [address] [place] [address] Medical Oncologist/[facility] Medical Oncology 08/18/18 Tramaine Roe MD [address] [place] [address] Referring Physician Urology 08/18/18 Sukhwinder Uribe MD [address] [place] [address] Consulting Physician Urology 08/18/18 Shay Guillermo MD [address] [facility] [address] [place] [address] Referring Physician Urology 08/18/18 documented as of this encounter
--- OUTSIDE RECORDS SUMMARY | 2024-03-31 05:02 | XMS_ITS | Encounter Summary ---
Author Organization [facility] Address [address] [place] [address] Phone Care Team Providers Care Manager Business Information Name Role Phone Mike Lerner MD Primary Care Provider [phone] Gautam Cope MD Unavailable Cruz Roe MD Unavailable [phone] Sukhwinder Uribe MD Unavailable [phone] Shay Guillermo MD Unavailable Reason for Referral * Diagnostic Imaging (Routine) - Closed Specialty Diagnoses / Procedures Referred By Saleem t Referred To Contact Radiology Diagnoses Prostate cancer (HCC) Procedures CT Chest Abdomen Pelvis WO Contrast Gautam Cope MD Phone: tel: fax: [address] [address] Referral ID Status Reason Start Date Expiration Date Visits Re quested Visits Authorized [id number] Closed 09/06/2018 03/17/2020 1 1 Reason for Visit * Consultation (Routine) - Authorized Specialty Diagnoses / Procedures Referred By Saleem narvaez Referred To Contact Oncology Diagnoses Prostate cancer (HCC) Cruz Roe MD [address] [facility] [address] [place] [address] Phone: tel: fax: Gautam Cope MD [address] IM MEDICAL ONCOLOGY, [address] [place] [address] Phone: tel: fax: Referral ID Status Reason Start Date Expiration Date Visits Requested Visits Authorized [id number] Authorized Specialty Services Required 08/15/2018 04/11/2024 99 99 Encounter Details Date Type Department Care Team (Late st Contact Info) Description 09/06/2018 1:30 PM CDT Office Visit [facility] Oncology [address] [facility] Advanced Medicine 7th [place] [address] [place] [address] Gautam Cope MD [address] [facility] [address] [place] [address] Prostate cancer (CMS/HCC) Social History Tobacco Use Types Packs/Day Years Used Date Smoking Tobacco: Former Smokeless Tobacco: Former Comments:Smoking History Pac ks/day: 10 Cigarettes Alcohol Use Standard Drinks/Week Comments No 0 (1 standard drink = 0.6 oz pur e alcohol) quit 09/2017 Sex and Gender Information Value Date Recorded Sex Assigned at Not on file 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 Gender Identity Not on file Sexual Orientation Not on file documented as of this encounter Last Filed Vital Signs Vital Sign Reading Time Taken Comments Blood Pressure 150/74 09/06/2018 12:56 PM CDT Pulse 74 09/06/2018 12:56 PM CDT Temperature 36.8 ??C (98.3 ??F) 09/06/2018 12:56 PM C DT Respiratory Rate 18 09/06/2018 12:56 PM CDT Oxygen Saturation 95% 09/06/2018 12:56 PM CDT Inhaled Oxygen Concentration - - Weight 98.7 kg (217 lb 9.6 oz) 09/06/2018 12:56 PM CDT Height 177.6 cm (5' 9.92 ) 09/06/2018 12:56 PM C DT Body Mass Index 31.29 09/06/2018 12:56 PM CDT documented in this encounter Consult Notes * Edda Issa MD - 09/06/2018 12:00 AM CDT PATIENT NAME: DAVID DREW : 1940 KATARINA: 09/06/2018 REFERRING PHYSICIAN: CRUZ ROE MD DIAGNOSIS: Metastatic prostate adenocarcinoma. HISTORY OF PRESENTING ILLNESS: This is a 77-year-old gentleman with a history of CKD, stage 3, paroxysmal atrial fibrillation, poorly controlled diabetes, hypertension, hyperlipidemia, and prostatic adenocarcinoma who presents [facility] oncologic consultation for 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 He was diagnosed with prostate cancer in 2000 when he presented with a PSA of 5.5. Biopsy at that time revealed a Viviana 3 + 4 disease, with concern of perineural invasion. He underwent a radical prostatectomy and bilateral pelvic lymph node dissection on 06/16/1999, with pathology consistent with adenocarcinoma, Casper 4 + 3 disease, with extracapsular extension and positive margin at the leftapex, all lymph nodes were negative (0/3) . He underwent adjuvant radiation therapy, completed in November 1999. Post definitive treatment, his PSA was undetectable in January 2000, and subsequently had been monitored closely with PSA checked routinely, last checked in June 2012 and was up to 0.2. Post treatment, he had radiation cystitis with hematuria, which has subsequently resolved. He presented for routine follow-up in July 2018 with Urology, and at that time, PSA was noted at 11.54. He underwent a pelvic MRI on 08/10/2018 with postop changes of prostatectomy, with subtle focus of enhancement at the vesicourethral anastomosis which may represent recurrent disease. Bone scan on 08/10/2018 showed a focal increased uptake projecting in the right posterior aspect of the L2 vertebral body. C urrently, he denies any fevers, chills, or night sweats. He reports fatigue, is able to do his chores but feels tired in the early afternoon. He reports occasional urinary incontinence and nocturia, denies any hematuria. He has had erection reaction difficulties since surgery and radiation. Of note, he has worsening low back pain. He had an MRI of his lumbar spine done in July 2018 that showed evidence of [id number]-[id number] degenerative changes with severe canal stenosis in the lumbar spine. He does endorse having occasional pain radiating down his legs after standing up for about 20minutes. He is scheduled to see Pain Management on 09/09/[address] Arreloa. PAST MEDICAL HISTORY: 1. Paroxysmal atrial fibrillation. 2. Type 2 diabetes. 3. Prostate cancer. 4. Hyperlipidemia. 5. Hypertension. 6. Bleeding ulcer. SOCIAL HISTORY: He lives in [place], [place]. He is retired. 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 He is a former smoker, smoked 1 pack per day for 40 years, quit in 2018. He reports 3 drinks a week. Denies any illicit drug use. FAMILY HISTORY: No family history of malignancy. Father from dementia. Mother from kidney disease. He has no children. ALLERGIES: No known drug allergies. MEDICATIONS: 1. Diltiazem 120 mg daily. 2. Lisinopril 40 mg daily. 3. Metformin 500 mg b.i.d. 4. Lantus 10 units daily. 5. Pantoprazole 40 mg daily. 6. Pravastatin 20 mg daily. 7. Januvia 25 mg daily. 8. Aspirin 81 mg daily. 9. Chlorthalidone 25 mg daily ASSESSMENT AND PLAN: This is a 77-year-old gentleman with a history of CKD, paroxysmal atrial fibrillation, poorly controlled diabetes, hypertension, hyperlipidemia, and prostate adenocarcinoma who presents to [facility] for evaluation of his metastatic prostate adenocarcinoma. From review of his history, he had evidence of stage II prostate adenocarcinoma diagnosed in 1999, underwent definitive therapy with prostatectomy, and subsequently requiring adjuvant radiation, given high-risk features, including extracapsular extension and positive margin. He has been monitored closely with undetectable to very low PSA. Subsequently, he has noted an elevated PSA to 11, with scans revealing evidence of possible metastatic lesion to his L2 vertebral body and vesicourethral anastomosis. We have discussed that we will want to initially obtain full scans to elucidate his extent of disease. He will need a CT of the chest and abdomen, and given his CKD, we will obtain the scans without IV contrast. We have discussed that, given his current radiographic finding of an L2 lesion, this is concerning for metastatic disease. He also has a questionable area of possible locoregional recurrence at vesicourethral anastamosis. We have explained that standard of care treatment for metastatic prostate cancer involves the use of androgen deprivation therapy. We have recommended initiation of bicalutamide 50 mg daily and the use of leuprolide 22.5 mg given intramuscularly every 12 weeks. He will start bicalutamide today to prevent testosterone flare, and he will return next week to receive leuprolide. We have discussed possible adverse effects of androgen deprivation therapy including, but not limited to visit model likesymptoms including hot flashes, night sweats, and decrease in bone mineral density. We will plan for full staging scans done next week. We have explained that, based on his full staging scan, we may recommend additional therapies, including additional systemic treatment for his malignancy or local therapy, like radiation therapy, if his only site of disease is his L2 vertebral body. We have also recommended increased physical activity with aerobic exercises done at least 5 days a week., and dietary modification. We have also recommend that he follow up with his primary care doctor for ongoing management of his poorly controlled diabetes. He is amenable to this plan. He will return next week for his leuprolide injection, and we will seehim back in 7 weeks for a return visit. All of his questions and concerns have been addressed. He has our number to call us in the interim if new questions or concerns arise. ELECTRONICALLY SIGNED - 09/07/2018 02:58 PM Edda Barry M.D. Fellow I have seen and assessed this patient, reviewed my fellow's history and physical examination, and Iagree with her findings. Specifically, I note Mr. Kelly has been diagnosed with metastatic prostate cancer. He was diagnosed originally in 1999, undergoing a radical prostatectomy showing 4+3 disease with extracapsular extension and a positive margin. He did receive adjuvant radiation therapy after that, done by Dr. Lao. PSA as late 2012 was still only 0.2, and the patient was then lost to follow-up. Repeat PSA done earlier this year was up to 11.5. An MRI scan showed questionable local recurrence, and a bone scan showed fairly convincing recurrence at L2, also seen on MRI scan of the pelvis. He has had no additional imaging done. He does have some chronic low back pain, which is attri buted to spinal stenosis with some radiculopathy. Additional medical problems include coronary artery disease, diabetes, atrial fibrillation, hypertension, and some minor urinary incontinence. He does have a history of smoking but stopped last year. He is due to start on diabetes medicine, utilizing insulin. We discussed the patient's findings and would like to complete a staging workup with a CTscan of his chest, abdomen, and pelvis, to look for any more deposits of disease. If L2 is predominantly the only deposit, then our consideration would be hormonal therapy along with Lupron, along with radiation therapy to L2. We also may or may not decide to add abiraterone at some point for better control. We will start him on Casodex today and a Lupron injection next week at the time of his CTscan. We will also plan to see him back again in mid October, and decide at that point about radiationtherapy and/or abiraterone. The patient obviously is adjusting well. He asked a number of questionsabout hormonal therapy. We went over the toxicities, and we discussed treatment. ELECTRONICALLY SIGNED - 09/07/2018 03:36 PM Gautam Cope M.D. bakery demonstrator NE/GLORIA/josef cc: CRUZ ROE MD [facility] [place] [address] MIKE LERNER M.D. [address], [address] [place] [address] / documented in this encounter Plan of Treatment Not on file documented as of this encounter Results * (ABNORMAL) CBC with auto differential (10/18/2018 1:55 PM CDT) WBC 9.7 3.8 - 9.8 K/cumm [facility] Comment:Testing performed by : [facility], [address] [place] [phone] Hgb 12.3(L) 13.8 - 17.2 g/dL [facility] Comment:Testing performed by : [facility], [address] [place] [phone] Hct 35.4(L) 40.7 - 50.3 % [facility] Comment:Testing performed by : [facility], [address] [place] [phone] Plt 362 140 - 440 K/cumm [facility] Comment:Testing performed by : [facility], [address] [place] [phone] MPV 7.2 6.8 - 10.4 fL [facility] Comment:Testing performed by : [facility], [address] [place] [phone] RBC 4.30(L) 4.50 - 5.70 M/cumm [facility] Comment:Testing performed by : [facility], [address] [place] [phone] MCV 82.2 80.0 - 97.6 fL [facility] Comment:Testing performed by : [facility], [address] [place] [phone] MCH 28.6 26.7 - 33.7 pg [facility] Comment:Testing performed by : [facility], [address] [place] [phone] MCHC 34.8 32.7 - 35.5 g/dL [facility] Comment:Testing performed by : [facility], [address] [place] [phone] RDW CV 15.4(H) 11.8 - 14.6 % [facility] Comment:Testing performed by : [facility], [address] [place] [phone] NRBC abs 0.00 0.00 - 0.01 K/cumm [facility] Comment:Testing performed by : [facility], [address] [place] [phone] Blood specimen (specimen) 10/18/2018 1:55 PM CDT 10/18/2018 1:57 PM CDT us Gautam Cope MD LAB BLOOD ORDERABLES Final Resul t [facility] [place] [address] * PSA diagnostic (10/18/2018 1:50 PM CDT) PSA-Total 1.28 <=6.20 ng/mL [facility] Comment: Interpretive Data ?AGE ? SEX ?REFERENCE [...] ORDERABLES Final Resul t Performing Organization Address [facility] de Phone Number [facility] [place] [address] * Lactate dehydrogenase (LD) (10/18/2018 1:50 PM CDT) [facility] Lactate dehydrogenase (LDH) 170 100 - 250 Units/L [facility] Blood specimen (specimen) 10/18/2018 1:50 PM CDT 10/18/2018 2:19 PM CDT Gautam Cope MD LAB BLOOD ORDERABLES Final Resul t Performing Organization Address [facility] de Phone Number [facility] [place] [address] * (ABNORMAL) Comprehensive metabolic panel (10/18/2018 1:50 PM CDT) Pathologist [facility] Sodium 136 135 - 145 mmol/L [facility] Potassium, pl 5.2(H) 3.3 - 4.9 mmol/L [facility] Chloride 104 97 - 110 mmol/L [facility] CO2 25 22 - 32 mmol/L [facility] Anion gap 7 2 - 15 mmol/L [facility] BUN 34(H) 8 - 25 mg/dL [facility] Creatinine 1.66(H) 0.80 - 1.30 mg/dL [facility] Glucose 190 70 - 199 mg/dL [facility] Comment: Interpretive Data Fasting glucose >/= 126 [...] 2017. Calcium 9.7 8.5 - 10.3 mg/dL [facility] Bilirubin, total 0.3 0.1 - 1.2 mg/dL [facility] Protein, pl 7.0 6.5 - 8.5 g/dL [facility] Albumin 4.3 3.5 - 5.0 g/dL [facility] Alk phos 103 40 - 130 Units/L [facility] ALT 30 7 - 55 Units/L [facility] AST 22 10 - 50 Units/L [facility] Blood specimen (specimen) 10/18/2018 1:50 PM CDT 10/18/2018 2:19 PM CDT us Gautam Cope MD LAB BLOOD ORDERABLES Final Resul t [facility] Department [place] [address] * (ABNORMAL) Testosterone (10/18/2018 1:43 PM CDT) Testosterone 10(L) 221 - 716 ng/dL [facility] Comment: Interpretive Data Male: Age 21-49 years: 240 ? 870 ng/dL Age 50-77 years: 221 ? 716 ng/dL Female: Age 21-49 years: 14 ? 53 ng/dL Age 50-82 years: 12 ? 36 ng/dL Current interpretive data was last revised on 18. Blood specimen (specimen) 10/18/2018 1:43 PM CDT 10/18/2018 2:03 PM CDT us Gautam Cope MD LAB BLOOD ORDERABLES Final Resul t [facility] [place] [address] * CT Chest Abdomen Pelvis WO Contrast [...] it. Electronically signed by: Bryan Antunez M.D. us Gautam Cope MD IMG CT PROCEDURES Final Result * (ABNORMAL) PSA diagnostic (09/06/2018 3:45 PM CDT) PSA-Total 10.67(H) <=6.20 ng/mL [facility] Comment: Interpretive Data ?AGE ? SEX ?REFERENCE INTERVAL 0 minutes-150 years ?Female ?None 0 minutes-49 years ? Male ?None ? 50-59 years ? Male ?0-3.90 ? 60-69 years ? Male ?0-5.40 ? 70-79 years ? Male ?0-6.20 ? 80-150 years ?Male ?0-6.20 Current interpretive data last revised 2017. Blood specimen (specimen) 09/06/2018 3:45 PM CDT 09/06/2018 4:14 PM CDT Narrative [facility] - 09/06/2018 5:17 PM CDT us Gautam Cope MD LAB BLOOD ORDERABLES Final Resul t Performing Organization Address [facility] Co de Phone Number [facility] [place] [address] * Lactate dehydrogenase (LD) (09/06/2018 3:45 PM CDT) Lactate dehydrogenase (LDH) 162 100 - 250 Units/L [facility] Blood specimen (specimen) 09/06/2018 3:45 PM CDT 09/06/2018 4:14 PM CDT Narrative [facility] - 09/06/2018 5:11 PM CDT Gautam Cope MD LAB BLOOD ORDERABLES Final Resul t Performing Organization Address [facility] de Phone Number [facility] Department [place] [address] * (ABNORMAL) Comprehensive metabolic panel (09/06/2018 3:45 PM CDT) Pathologist [facility] Sodium 138 135 - 145 mmol/L [facility] Potassium, pl 4.2 3.3 - 4.9 mmol/L [facility] Chloride 100 97 - 110 mmol/L [facility] CO2 26 22 - 32 mmol/L [facility] Anion gap 12 2 - 15 mmol/L [facility] BUN 34(H) 8 - 25 mg/dL [facility] Creatinine 1.54(H) 0.80 - 1.30 mg/dL [facility] Glucose 147 70 - 199 mg/dL [facility] Comment: Interpretive Data Fasting glucose >/= 126 [...] 2017. Calcium 9.7 8.5 - 10.3 mg/dL [facility] Bilirubin, total 0.2 0.1 - 1.2 mg/dL [facility] Protein, pl 7.6 6.5 - 8.5 g/dL [facility] Albumin 4.5 3.5 - 5.0 g/dL [facility] Alk phos 109 40 - 130 Units/L [facility] ALT 27 7 - 55 Units/L [facility] AST 23 10 - 50 Units/L [facility] Blood specimen (specimen) 09/06/2018 3:45 PM CDT 09/06/2018 4:14 PM CDT Narrative [facility] - 09/06/2018 5:11 PM CDT us Gautam Cope MD LAB BLOOD ORDERABLES Final Resul t [facility] [place] [address] * (ABNORMAL) CBC with auto differential (09/06/2018 3:44 PM CDT) WBC 9.8 3.8 - 9.8 K/cumm [facility] Comment:Testing performed by : [facility], [address] [place] [phone] Hgb 12.5(L) 13.8 - 17.2 g/dL [facility] Comment:Testing performed by : [facility], [address] [place] [phone] Hct 36.9(L) 40.7 - 50.3 % [facility] Comment:Testing performed by : [facility], [address] [place] [phone] Plt 432 140 - 440 K/cumm [facility] Comment:Testing performed by : [facility], [address] [place] [phone] MPV 7.1 6.8 - 10.4 fL [facility] Comment:Testing performed by : [facility], [address] [place] [phone] RBC 4.54 4.50 - 5.70 M/cumm [facility] Comment:Testing performed by : [facility], [address] [place] [phone] MCV 81.5 80.0 - 97.6 fL [facility] Comment:Testing performed by : [facility], [address] [place] [phone] MCH 27.6 26.7 - 33.7 pg [facility] Comment:Testing performed by : [facility], [address] [place] [phone] MCHC 33.9 32.7 - 35.5 g/dL [facility] Comment:Testing performed by : [facility], [address] [place] [phone] RDW CV 15.1(H) 11.8 - 14.6 % [facility] Comment:Testing performed by : [facility], [address] [place] [phone] NRBC abs 0.01 0.00 - 0.01 K/cumm [facility] Comment:Testing performed by : [facility], [address] [place] [phone] Blood specimen (specimen) 09/06/2018 3:44 PM CDT 09/06/2018 3:47 PM CDT Narrative [facility] - 09/06/2018 3:51 PM CDT us Gautam Cope MD LAB BLOOD ORDERABLES Final Resul t [facility] [place] [address] * Testosterone (09/06/2018 3:44 PM CDT) Testosterone 271 241 - 827 ng/dL [facility] Comment: Interpretive Data Male: ??Age 19-71 yrs: ?? 241 - 827 ng/dL Female: ??Age 15-75 yrs: ?? 14 - 76 ng/dL Current interpretive data was last revised on 2012. Blood specimen (specimen) 09/06/2018 3:44 PM CDT 09/06/2018 4:00 PM CDT Narrative [facility] - 09/06/2018 6:09 PM CDT us Gautam Cope MD LAB BLOOD ORDERABLES Final Resul t [facility] [place] [address] documented in this encounter Visit Diagnoses Diagnosis Prostate cancer (HCC) Malignant neoplasm of prostate Prostate cancer (HCC) Malignant neoplasm of prostate Prostate cancer (HCC) Malignant neoplasm of prostate documented in this encounter Historical Medications * This list may reflect changes made after this encounter. BD ULTRA-FINE SHORT PEN NEEDLE 31 gauge x 5/16 needle USE TO INJECT INSULIN ONCE DIALY 1 08/29/2018 01/18/2019 ACCU-CHEK FASTCLIX LANCET DRUM misc TEST BLOOD SUGAR BID 1 08/29/2018 12/17/2019 added in this encounter Orders Outpatient Referral Count Last Ordered Date Fir st Ordered Date AMB REFERRAL TO ONCOLOGY 1 09/06/2018 Appointment Requests Count Last Ordered Date Fi rst Ordered Date [facility] APPOINTMENT REQUEST 1 019 [facility] APPOINTMENT 2 10/18/201809/06 documented in this encounter Care Teams Manager Business Information Relationship Specialty Start Date End Date Mike Lerner MD [address] [place] [address] PCP - General 07/10/16 Gautam Cope MD [address] [place] [address] Medical Oncologist/Ice Sculptor Medical Oncology 08/18/18 Cruz Roe MD [address] [place] [address] Referring Physician Urology 08/18/18 Sukhwinder Uribe MD [address] [facility] [address] [place] [address] Consulting Physician Urology 08/18/18 Shay Guillermo MD [address] [facility] [address] [place] [address] Referring Physician Urology 08/18/18 documented as of this encounter
--- OUTSIDE RECORDS SUMMARY | 2024-03-31 05:02 | XMS_ITS | Encounter Summary ---
Author Organization [facility] Address [address] [place] [address] Phone Care Team Providers Care Brim Blocker Name Role Phone Kraig Ching MD Primary Care Provider [phone] Gautam Cope MD Unavailable Tramaine Roe MD Unavailable [phone] Sukhwinder Uribe MD Unavailable [phone] Shay Guillermo MD Unavailable [phone] Encounter Details Date Type Department Care Team (Late st Contact Info) Description 09/06/2018 Orders Only [facility] Oncology [address] [facility] 7th [place] [address] [place] [address] Muna Saleem RN Social History Tobacco Use Types Packs/Day Years Used Date Smoking Tobacco: Former Smokeless Tobacco: Former Comments:Smoking History Pac ks/day: 10 Cigarettes Alcohol Use Standard Drinks/Week Comments No 0 (1 standard drink = 0.6 oz pur e alcohol) quit 09/2017 Sex and Gender Information Value Date Recorded Sex Assigned at Not on file 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 Gender Identity Not on file Sexual Orientation Not on file documented as of this encounter Ordered Prescriptions Prescription Sig Dispense Quantity Refills Last Filled Start Date End Date bicalutamide (CASODEX) 50 mg tabletIndications: metastatic prostate carcinoma Take 1 tablet (50 mg total) by mouth daily 30 tablet 09/06/2018 11/02/2018 documented in this encounter Plan of Treatment Not on file documented as of this encounter Visit Diagnoses Not on filedocumented in this encounter Care Teams Brim Blocker Relationship Specialty Start Date End Date Kraig Ching MD [address] [facility] [address] [place] [address] PCP - General 07/10/16 Gautam Cope MD [address] [facility] [address] [place] [address] Medical Oncologist/Human Resources Trainer Medical Oncology 08/18/18 Tramaine Roe MD [address] [facility] [address] [place] [address] Referring Physician Urology 08/18/18 Sukhwinder Uribe MD [address] [facility] [address] [place] [address] Consulting Physician Urology 08/18/18 Shay Guillermo MD [address] [facility] [address] [place] [address] Referring Physician Urology 08/18/18 documented as of this encounter
--- OUTSIDE RECORDS SUMMARY | 2024-03-31 05:02 | XMS_ITS | Encounter Summary ---
Author Organization [facility] Address [address] [place] [address] Phone Care Team Providers Care Dramatic Coach Name Role Phone Kraig Ching MD Primary Care Provider [phone] Gautam Cope MD Unavailable Tramaine Roe MD Unavailable [phone] Sukhwinder Uribe MD Unavailable [phone] Shay Guillermo MD Unavailable [phone] Encounter Details Date Type Department Care Team (Late st Contact Info) Description 10/14/2018 Orders Only [facility] Oncology [address] [facility] 7th [place] [address] [place] [address] Muna Saleem RN Prostate cancer ([facility]/HCC) Social History Tobacco Use Types Packs/Day Years Used Date Smoking Tobacco: Former Smokeless Tobacco: Never Comments:Smoking History Pac ks/day: 10 Cigarettes Alcohol Use Standard Drinks/Week Comments Yes 0 (1 standard drink = 0.6 oz pur e alcohol) Occasional glass of wine. 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 Author CCM Chronic Pain Care Plan Chronic Care Management No change(03/23 1:47 PM CLERK SPECIALIST) No Ingrid Oden, SHEA Note: Problem: Chronic Pain Goals: 1. Minimize further functional decline 2. Maximize quality of life 3. Control pain Strategies: - Activity/exercise program recommendation - Conservative stepwise pain medicine strategy with multi-disciplinary approach - Recommend healthy lifestyle strategies and compensatory methods as needed documented as of this encounter Results * (ABNORMAL) CBC with auto differential (12/06/2018 2:11 PM CDT) WBC 11.1(H) 3.8 - 9.8 K/cumm [facility] Comment:Testing performed by : [facility], [address] [place] [phone] Hgb 11.9(L) 13.8 - 17.2 g/dL [facility] Comment:Testing performed by : [address] [address] Hct 35.7(L) 40.7 - 50.3 % [facility] Comment:Testing performed by : [address] [address] Plt 380 140 - 440 K/cumm [facility] Comment:Testing performed by : [address] [address] MPV 7.2 6.8 - 10.4 fL [facility] Comment:Testing performed by : [place] [id number] RBC 4.14(L) 4.50 - 5.70 M/cumm [facility] Comment:Testing performed by : [address] [address] MCV 86.3 80.0 - 97.6 fL [facility] Comment:Testing performed by : [address] [address] MCH 28.8 26.7 - 33.7 pg [facility] Comment:Testing performed by : [address] [address] MCHC 33.3 32.7 - 35.5 g/dL [facility] Comment:Testing performed by : [address] [address] RDW CV 16.0(H) 11.8 - 14.6 % [facility] Comment:Testing performed by : [facility], [address] [facility] [address] NRBC abs 0.00 0.00 - 0.01 K/cumm [facility] Comment:Testing performed by : [facility], [address] [facility] [address] Blood specimen (specimen) 12/06/2018 2:11 PM CDT 12/06/2018 2:12 PM CDT us Gautam Cope MD LAB BLOOD ORDERABLES Final Resul t [facility] Department [place] [address] * PSA diagnostic (12/06/2018 1:58 PM CDT) PSA-Total 0.28 <=6.20 ng/mL [facility] Comment: Interpretive Data ?AGE ? SEX ?REFERENCE [...] MD LAB BLOOD ORDERABLES Final Resul t [facility] [place] [address] * (ABNORMAL) Comprehensive metabolic panel (12/06/2018 1:58 PM CDT) Sodium 140 135 - 145 mmol/L [facility] Potassium, pl 5.5(H) 3.3 - 4.9 mmol/L [facility] Chloride 105 97 - 110 mmol/L [facility] CO2 28 22 - 32 mmol/L [facility] Anion gap 7 2 - 15 mmol/L [facility] BUN 36(H) 8 - 25 mg/dL [facility] Creatinine 1.57(H) 0.80 - 1.30 mg/dL [facility] Glucose 289(H) 70 - 199 mg/dL [facility] Comment: Interpretive Data Fasting glucose [...] 2017. Calcium 9.1 8.5 - 10.3 mg/dL [facility] Bilirubin, total 0.2 0.1 - 1.2 mg/dL [facility] Protein, pl 6.8 6.5 - 8.5 g/dL [facility] Albumin 4.1 3.5 - 5.0 g/dL [facility] Alk phos 107 40 - 130 Units/L [facility] ALT 37 7 - 55 Units/L [facility] AST 21 10 - 50 Units/L [facility] Blood specimen (specimen) 12/06/2018 1:58 PM CDT 12/06/2018 2:28 PM CDT us Gautam Cope MD LAB BLOOD ORDERABLES Final Resul t [facility] [place] [address] * Lactate dehydrogenase (LD) (12/06/2018 1:58 PM CDT) Lactate dehydrogenase (LDH) 171 100 - 250 Units/L [facility] Blood specimen (specimen) 12/06/2018 1:58 PM CDT 12/06/2018 2:28 PM CDT Gautam Cope MD LAB BLOOD ORDERABLES Final Resul t Performing Organization Address City/[facility] Co de Phone Number [facility] Department [place] [address] documented in this encounter Visit Diagnoses Diagnosis Prostate cancer (HCC) Malignant neoplasm of prostate documented in this encounter Care Teams Dramatic Coach Relationship Specialty Start Date End Date Kraig Ching MD [address] [facility] [address] [place] [address] PCP - General 07/10/16 Gautam Cope MD [address] [place] [address] Medical Oncologist/Bottle Machine Operator Medical Oncology 08/18/18 Tramaine Roe MD [address] [place] [address] Referring Physician Urology 08/18/18 Sukhwinder Uribe MD [address] [place] [address] Consulting Physician Urology 08/18/18 Shay Guillermo MD [address] [place] [address] Referring Physician Urology 08/18/18 documented as of this encounter
--- OUTSIDE RECORDS SUMMARY | 2024-03-31 05:02 | XMS_ITS | Encounter Summary ---
Author Organization [facility] Address [address] [place] [address] Care Team Providers Care Reheater Helper Name Role Phone Kraig Ching MD Primary Care Provider [phone] Gautam Cope MD Unavailable Tramaine Roe MD Unavailable [phone] Sukhwinder Uribe MD Unavailable [phone] Shay Guillermo MD Unavailable [phone] Reason for Visit * Reason Onset Date Comments Pre-Surgical Call 11/15/2018 Encounter Details Date Type Department Care Team (Late st Contact Info) Description 11/15/2018 Telephone [facility] [place] [facility] [address] [facility] [address] [place], [place] [id number] Maru Arreola MD PhD [address] [facility] [id number] [place] [address] Pre-Surgical Call Social History Tobacco Use Types Packs/Day Years Used Date Smoking Tobacco: Former Smokeless Tobacco: Never Comments:Smoking History Pac ks/day: 10 Cigarettes Alcohol Use Standard Drinks/Week Comments Yes 0 (1 standard drink = 0.6 oz pur e alcohol) Occasional glass of wine. 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 Pt verbalized understanding. documented in this encounter Plan of Treatment Not on file documented as of this encounter Goals Goal Patient Goal Type Associated Problems Recent Progress Patient-Stated? Author CCM Chronic Pain Care Plan Chronic Care Management No change(03/23 1:47 PM AUTISM TEACHER) No Ingrid Oden RN Note: Problem: Chronic Pain Goals: 1. Minimize further functional decline 2. Maximize quality of life 3. Control pain Strategies: - Activity/exercise program recommendation - Conservative stepwise pain medicine strategy with multi-disciplinary approach - Recommend healthy lifestyle strategies and compensatory methods as needed documented as of this encounter Visit Diagnoses Not on filedocumented in this encounter Care Teams Reheater Helper Relationship Specialty Start Date End Date Kraig Ching MD [address] [place] [address] PCP - General 07/10/16 Gautam Cope MD [address] [place] [address] Medical Oncologist/Emergency Spill Response Technician Medical Oncology 08/18/18 Tramaine Roe MD [address] [place] [address] Referring Physician Urology 08/18/18 Sukhwinder Uribe MD [address] [place] [address] Consulting Physician Urology 08/18/18 Shay Guillermo MD [address] [place] [address] Referring Physician Urology 08/18/18 documented as of this encounter
--- OUTSIDE RECORDS SUMMARY | 2024-03-31 05:02 | XMS_ITS | Encounter Summary ---
Author Organization [facility] Address [address] [place] [address] Phone Care Team Providers Care Breastfeeding Educator Name Role Phone Kraig Ching MD Primary Care Provider [phone] Gautam Cope MD Unavailable Tramaine Roe MD Unavailable [phone] Sukhwinder Uribe MD Unavailable [phone] Shay Guillermo MD Unavailable [phone] Encounter Details Date Type Department Care Team (Late st Contact Info) Description 10/20/2018 Orders Only [facility] Oncology [address] [facility] 7th [place] [address] [place] [address] Muna Saleem RN Prostate cancer ([facility]/HCC) Social History Tobacco Use Types Packs/Day Years Used Date Smoking Tobacco: Former Smokeless Tobacco: Never Comments:Smoking History Pac ks/day: 10 Cigarettes Alcohol Use Standard Drinks/Week Comments Yes 0 (1 standard drink = 0.6 oz pur e alcohol) Occasional glass of wine. 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 Gender Identity Not on file Sexual Orientation Not on file documented as of this encounter Ordered Prescriptions Prescription Sig Dispense Quantity Refills Last Filled Start Date End Date predniSONE (DELTASONE) 5 mg tabletIndications:A drenal Cortical Insufficiency Take 1 tablet (5 mg) by mouth 2 (two) times a day 60 tablet 11 10/20/2018 0 abiraterone (ZYTIGA) 250 mg tabletIndications:p rostate cancer Take 4 tablets (1,000 mg total) by mouth daily Do not eat anything for at least 2 hours before and for at least 1 hour after 120 tablet 11 10/20/2018 0 documented in this encounter Plan of Treatment Not on file documented as of this encounter Goals Goal Patient Goal Type Associated Problems Recent Progress Patient-Stated? Author CCM Chronic Pain Care Plan Chronic Care Management No change(03/23 1:47 PM COLLAR STITCHER) No Ingrid Oden RN Note: Problem: Chronic [...] End Da te abiraterone (ZYTIGA) 250 mg tabletIndications:prost ate cancer Take 4 tablets (1,000 mg total) by mouth daily Do not eat anything for at least 2 hours before and for at least 1 hour after Reorder 10/20/2018 10/20/2018 documented as of this encounter Care Teams Breastfeeding Educator Relationship Specialty Start Date End Date Kraig Ching MD [address] [facility] [address] [place] [address] PCP - General 07/10/16 Gautam Cope MD [address] [facility] [address] [place] [address] Medical Oncologist/Sheetmetal Trades Worker Medical Oncology 08/18/18 Tramaine Roe MD [address] [facility] [address] [place] [address] Referring Physician Urology 08/18/18 Sukhwinder Uribe MD [address] [facility] [address] [place] [address] Consulting Physician Urology 08/18/18 Shay Guillermo MD [address] [facility] [address] [place] [address] Referring Physician Urology 08/18/18 documented as of this encounter
--- OUTSIDE RECORDS SUMMARY | 2024-03-31 05:02 | XMS_ITS | Encounter Summary ---
Author Organization [facility] Address [address] [place] [address] Phone Care Team Providers Care Mobile Homes Repairer Name Role Phone Kraig Ching MD Primary Care Provider [phone] Gautam Cope MD Unavailable Tramaine Roe MD Unavailable [phone] Sukhwinder Uribe MD Unavailable [phone] Shay Guillermo MD Unavailable [phone] Reason for Visit * Reason Comments Injections * Episode Based Medications (Routine) - Authorized Specialty Diagnoses / Procedures Referred By Saleem t Referred To Contact Oncology Diagnoses Prostate cancer (HCC) Procedures [place] LEUPROLIDE ACETATE SUSPNSION Leuprolide Every 3 Months - Prostate Gautam Cope MD [address] [facility] [address] [place] [address] Phone: tel: fax: [facility] - [facility]fusion [address] [facility] [address] [place] [address] Referral ID Status Reason Start Date Expiration Date V isits Requested Visits Authorized [id number] Authorized 09/06/2018 07/11/2024 1 50 Encounter Details Date Type Department Care Team (Late st Contact Info) Description 09/13/2018 9:00 AM CDT Infusion [facility] [address] [facility] Advanced Medicine 7th [place] [address] Prostate cancer (CMS/HCC) (Primary Dx) [...] on file 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 Gender Identity Not on file Sexual Orientation Not on file documented as of this encounter Last Filed Vital Signs Vital Sign Reading Time Taken Comments Blood Pressure 145/68 09/13/2018 8:14 AM CDT Pulse 69 09/13/2018 8:14 AM CDT Temperature 36.7 ??C (98.1 ??F) 09/13/2018 8:14 AM CD T Respiratory Rate 16 09/13/2018 8:14 AM CDT Oxygen Saturation 95% 09/13/2018 8:14 AM CDT Inhaled Oxygen Concentration - - Weight 99.7 kg (219 lb 12.8 oz) 09/13/2018 8:14 AM CDT Height - - Body Mass Index 31.54 09/09/2018 9:35 AM CDT documented in this encounter Nursing Notes * Shayna Neal RN - 09/13/2018 9:00 AM CDT Tolerated Lupron injection in right upper dorsogluteal muscle well. Reviewed education sheet with patient. Patient has return appointments. Discharged ambulatory. documented in this encounter Plan [...] 22.5 mg 22.5 mg, intramuscular, Once, On Wed09/13/18 at 0915, For 1 doseIndications:Prostate cancer (HCC) Given 09/13/2018 8:39 AM CDT 22.5 mg Right Dorsogluteal/Butto ck documented in this encounter Orders Nursing Count Last Ordered Date First Orde red Date ONCBCN TREATMENT PARAMETERS 2 1 09/13/2018 Appointment Requests Count Last Ordered Date Fi rst Ordered Date ONCBCN INJECTION APPOINTMENT REQUEST 1 07/2018 documented in this encounter Care Teams Mobile Homes Repairer Relationship Specialty Start Date End Date Kraig Ching MD [address] [place] [address] PCP - General 07/10/16 Gautam Cope MD [address] [place] [address] Medical Oncologist/Dinkey Locomotive Engineer Medical Oncology 08/18/18 Tramaine Roe MD [address] [place] [address] Referring Physician Urology 08/18/18 Sukhwinder Uribe MD [address] [place] [address] Consulting Physician Urology 08/18/18 Shay Guillermo MD [address] [place] [address] Referring Physician Urology 08/18/18 documented as of this encounter
--- OUTSIDE RECORDS SUMMARY | 2024-03-31 05:02 | XMS_ITS | Encounter Summary ---
Author Organization [facility] Address [address] [place] [address] Care Team Providers Care Embossing Machine Operator Helper Name Role Phone Kraig Ching MD Primary Care Provider [phone] Gautam Cope MD Unavailable Tramaine Roe MD Unavailable [phone] Sukhwinder Uribe MD Unavailable [phone] Shay Guillermo MD Unavailable [phone] Reason for Visit * Reason Onset Date Comments Pre-Surgical Call 09/13/2018 Encounter Details Date Type Department Care Team (Late st Contact Info) Description 09/13/2018 Telephone [facility] [place] [facility] [address] 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 Gender Identity Not on file Sexual Orientation Not on file documented as of this encounter Miscellaneous Notes * Telephone Encounter - Caitlin Lynn RN - 09/13/2018 5:40 PM CDT PRE CALL DONE documented in this encounter Plan of Treatment Not on file documented as of this encounter Visit Diagnoses Not on filedocumented in this encounter Care Teams Embossing Machine Operator Helper Relationship Specialty Start Date End Date Kraig Ching MD [address] [place] [address] PCP - General 07/10/16 Gautam Cope MD [address] [place] [address] Medical Oncologist/Set Up Inspector Medical Oncology 08/18/18 Tramaine Roe MD [address] [place] [address] Referring Physician Urology 08/18/18 Sukhwinder Uribe MD [address] [place] [address] Consulting Physician Urology 08/18/18 Shay Guillermo MD [address] [place] [address] Referring Physician Urology 08/18/18 documented as of this encounter
--- OUTSIDE RECORDS SUMMARY | 2024-03-31 05:02 | XMS_ITS | Encounter Summary ---
Author Organization [facility] Healthcare Address [address] [place] [address] Care Team Providers Care Armor Reconnaissance Specialist Name Role Phone Kraig Ching MD Primary Care Provider [phone] Gautam Cope MD Unavailable Tramaine Roe MD Unavailable [phone] Sukhwinder Uribe MD Unavailable [phone] Shay Guillermo MD Unavailable [phone] Reason for Referral * Consultation (Routine) - Closed Specialty Diagnoses / Procedures Referred By Saleem narvaez Referred To Contact Pain Management Diagnoses Sciatica, left side Kraig Ching MD Phone: tel: fax: [facility] Referral ID Status Reason Start Date Expiration Date V isits Requested Visits Authorized [id number] Closed Specialty Services Required 07/21/2018 01/30/2020 6 6 Question Answer Please select the performing region: [facility] [[id number]] # of visits: 6 Comments [facility] pain [facility] Reason for Visit * Reason Comments Initial Consult Lower back pain asso ciated with weakness of bilatral legs after prolonged standing. Pain is across the lower back lower than beltine.Dull ache today, as he is sitting. /10 after walking ~ 1 block. At that time, legs become numb. Recent dx of metastatic bone cancer. * Consultation (Routine) - Closed Specialty Diagnoses / Procedures Referred By Saleem narvaez Referred To Contact Pain Management Diagnoses Sciatica, left side Kraig Ching MD Phone: tel: fax: [facility] Referral ID Status Reason Start Date Expiration Date V isits Requested Visits Authorized [id number] Closed Specialty Services Required 07/21/2018 01/30/2020 6 6 Encounter Details Date Type Department Care Team (Latest Contact Info) Description 09/09/2018 9:13 AM CDT - 09/09/2018 11:59 PM CDT Hospital Encounter [facility] at the [facility] Advanced [facility] [address] 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 Gender Identity Not on file Sexual Orientation Not on file documented as of this encounter Last Filed Vital Signs Vital Sign Reading Time Taken Comments Blood Pressure 142/60 09/09/2018 9:35 AM CDT Pulse 65 09/09/2018 9:35 AM CDT Temperature 36.9 ??C (98.5 ??F) 09/09/2018 9:35 AM CD T Respiratory Rate 16 09/09/2018 9:35 AM CDT Oxygen Saturation - - Inhaled Oxygen Concentration - - Weight 97.3 kg (214 lb 8 oz) 09/09/2018 9:35 AM CDT Height 177.8 cm (5' 10 ) 09/09/2018 9:35 AM CDT Body Mass Index 30.78 09/09/2018 9:35 AM CDT documented in this encounter Discharge Instructions * Patient Instructions* Aracely Oseguera, RN - 09/09/2018 10:54 AM CDT PAIN MANA[facility]EMENT CENTER ([facility]) DISCHARGE INSTRUCTIONS MEDICATIONS: [x] Continue your current home medications Start: Gabepentin 300 mg, take 1 capsule at bedtime [] Notify your pharmacy for refill(s) 7 days before you are out of your medication. [] Opioid (Narcotic) Agreement signed and patient received copy. [] Side Effects of Opioid Medications given to patient Resume blood thinner: On Discontinue: PROCEDURE at today's visit: DIET: [x] Resume normal diet [] See [facility] Post Discharge Procedure Information Sheet ACTIVITY: [x] Resume normal activity [] See [facility] Post Discharge Procedure Information Sheet REFERRALS: Physical Therapy [] [facility] ([phone]) [] GMI (Graded Motor Imagery) [] [facility] ([phone]) [x] Other: Physical therapy order Behavior Medicine [] Pain Psychologist, [facility] Please call to schedule appointment [phone] or [phone] Diagnostic Test(s): EDUCATION provided on the following: [] Spinal Cord Stimulator Education and DVD. Vendor: FOLLOW UP APPOINTMENTS: [] Return as needed [] Follow up appointment: We will contact you the next business day to obtain: [] An update on your condition [] Your Pain diary scores [x] Procedure at your next visit : Bilateral Lumbar Selective Nerve Root Injections INSTRUCTIONS before your next procedure: [x] See [facility] Pre-Procedure Information Sheet [] Do not eat for six (6) hours or drink for three (3) hours before the time/date of the procedure. [] Inquire with your prescribing provider if ok to hold blood thinner for days before procedure. [] Blood work required 2 hours before procedure: [x] Steel Plate Printer needed for next procedure Patient provided information and repeated back with understanding. If you need to reach us: For any questions about your procedure, please call the Pain Management Center [phone] (M-F) (8am-4pm) If you need urgent attention after 5 pm and weekends: Call the [facility] Nitroglycerin Neutralizer at [phone] and ask for the Pain Service doctor fireperson. Patient Education Gabapentin (By mouth) Gabapentin ([id number]) Treats seizures and pain caused by shingles. [...] pharmacist before using any other medicine, including tirk-mhj-phyznyu medicines, vitamins, and herbal products. ?? Some [...] may report side effects to FDA at 8-419-LTX-9289 ?? 2016 [employer] Information is for End User's use only and may not be sold, redistributed or otherwise used for commercial purposes. The above information is an operating room aide only. It is not intended as [...] Filled Start Date End Date gabapentin (NEURONTIN) 300 mg capsuleIndications :Neuropathic Pain Take 1 capsule (300 mg total) by mouth nightly 90 capsule 2 09/09/2018 9 documented in this encounter Discharge Disposition Disposition Code Departure Means Destination Discharge to home or self care documented in this encounter Progress Notes * Maru Arreola MD PhD - 09/09/2018 9:30 AM CDT Patient Name: David Wei : 1940 Today's Date: 09/09/2018 PCP: Kraig Ching MD Referring: Kraig Ching MD Chief Complaint Patient presents with ??? Initial Consult Lower back pain associated with weakness of bilatral legs after prolonged standing. Pain is across the lower back lower than beltine.Dull ache today, as he is sitting. 10 after walking ~ 1 block. At that time, legs become numb. Recent dx of metastatic bone cancer. HPI: Mr. David Wei is a 77 y.o. [...] stenosis. There is no spinal canal stenosis Patient's Medications New Prescriptions No medications on [...] No medications on file No Known Allergies Past Medical History: Diagnosis Date ??? A-fib (CMS/HCC) ??? Anemia ??? Diabetes (CMS/HCC) ??? Diverticulitis ??? Esophageal stricture ??? GERD (gastroesophageal reflux disease) ??? HTN (hypertension) ??? Multiple gastric ulcers ??? Pancreatitis ??? Prostate CA (CMS/HCC) w/ radiation post surgery ??? Renal disease 40% functioning Past Surgical History: Procedure Laterality Date ??? CHOLECYSTECTOMY ??? OTHER SURGICAL HISTORY 1998 Extensive abdominal surgery [place] Pancreatic abcess/pancreatitis ??? PROSTATECTOMY 1999 Family History Problem Relation Age of Onset ??? Diabetes type II Other Diabetes mellitus type 2; ??? Hypertension Other Hypertension; ??? Kidney failure Mother ??? Dementia Father Social History Socioeconomic History ??? Marital status: [...] Smoking status: Former Smoker ??? Smokeless tobacco: Former User ??? Tobacco comment: Smoking History Packs/day: 10 Cigarettes Substance and Sexual Activity ??? Alcohol use: No Comment: quit 09/2017 ??? Drug use: No ??? Sexual activity: Not on file Lifestyle ??? Physical activity: Days per week: Not on file Minutes per session: Not on file ??? Stress: Not on file Relationships ??? Social connections: Talks on phone: Not on file Gets together: Not on file Attends spiritism service: Not on file Active member of [...] Social History Narrative ??? Not on file Review of Systems: Review of Systems Constitutional: Positive for weight loss. HENT: Glaucoma Eyes: Negative. Respiratory: Negative. Cardiovascular: Htn Gastrointestinal: Negative. Genitourinary: Negative. Musculoskeletal: Negative. Neurological: Positive for sensory change and weakness. Endo/Heme/Allergies: Diabetes Psychiatric/Behavioral: Negative. Lab Results Component Value Date WBC 9.8 09/06/2018 HGB 12.5 (L) 09/06/2018 HCT 36.9 (L) 09/06/2018 MCV 81.5 09/06/2018 LABPLAT 432 09/06/2018 Physical Exam: Vitals: 09/09/18 0935 BP: 142/60 Pulse: 65 Resp: 16 Temp: 98.5 ??F (36.9 ??C) Weight: 97.3 kg (214 lb 8 oz) Height: 177.8 cm (5' 10 ) Body mass index is 30.78 kg/m??. Constitutional: Patient is well-groomed, in NAD, A&Ox3 Lung: normal respiratory effort GI: Abd soft, NT Musculoskeletal: Gait: Antalgic Full ROM in b/l UE and LE Paraspinal muscular tenderness: mild bilaterally at lumbar region. SLR positive bilaterally Facet tenderness: absent bilaterally at lumbar region. Lumbar facet loading: positive bilaterally SI joint tenderness: absent bilaterally. Right knee reflex 2, left knee 0 Neurologic: CN III-XII intact Upper Ext Power: C5 elbow flex 5/5 bilaterally C6 wrist ext 5/5 bilaterally C7 elbow ext 5/5 bilaterally C8 finger ext 5/5 bilaterally T1 finger abduction 5/5 bilaterally Lower Ext Power: L2 hip flex 5/5 bilaterally L3 knee ext 5/5 bilaterally L4 foot dorsiflex 5/5 bilaterally L5 hallux dorsiflex 5/5 bilaterally S1 hallux plantar flex 5/5 bilaterally Sensation to light touch: normal bilaterally Skin: No rashes or lesions in the four extremities and back. Psychiatric: normal affect Assessment: The above note documents my personal evaluation of this patient. In addition, I have reviewed and confirmed with the patient and nurse the supportive information documented in today's scanned PatientHealth Questionnaire and Office Note. Encounter Diagnosis Name Primary? Sciatica, left side Plan: 1. Interventions: Given signs and symptoms of spinal stenosis and lumbar radiculopathy, we will consider LSNR at bilateral L4/5 at future visit 2. Medications: ?? Opioids: Opioids are not indicated ?? Adjuvants: Given the neuropathic component of the pain, we will start the patient on a titrationof gabapentin to a goal of 300 mg QHS due to poor kidney function. He can also take 1000mg Aceptaminophen Qday PRN to BID 3. Imaging:Reviewed MRI, No further imaging needed at this current time. 4. Referral: We will refer the patient to physical therapy for evaluation and treatment as well as a home exercise program. 5. Follow-up: At the next possible visit for the procedure listed above Maru Arreola MD PhD Instructor of Anesthesiology [facility], [facility] 09/09/2018 10:03 AM documented in this encounter Miscellaneous Notes * Addendum Note - Anahi Jarquin - 09/09/2018 11:59 PM CDTEncounter addended by: Anahi Jarquin on: 09/12/2018 8:42 AM Actions taken: Procedure log completed documented in this encounter Plan of Treatment Pending Results Name Type Priority Associated Diagnoses Date/Time Ambulatory referral to Pain Management Outpatient Referral Routine Sciatica, left side 09/12/2018 8:42 AM CDT Scheduled Referrals Name Type Priority Associated Diagnoses Order Schedule Ambulatory referral to Pain Management Outpatient Referral Routine Sciatica, left side Once for 1 Occurrences starting 09/09/2018 until 09/09/2018 documented as of this encounter Visit Diagnoses Diagnosis Spinal stenosis of lumbar region with neurogenic claudication- Primary Sciatica, left side Chronic bilateral low back pain with bilateral sciatica documented in this encounter Care Teams Armor Reconnaissance Specialist Relationship Specialty Start Date End Date Kraig Ching MD [address] [place] [address] PCP - General 07/10/16 Gautam Cope MD [address] [place] [address] Medical Oncologist/Pantry Steward/Stewardess Medical Oncology 08/18/18 Tramaine Roe MD [address] [place] [address] Referring Physician Urology 08/18/18 Sukhwinder Uribe MD [address] [place] [address] Consulting Physician Urology 08/18/18 Shay Guillermo MD [address] [place] [address] Referring Physician Urology 08/18/18 documented as of this encounter
--- OUTSIDE RECORDS SUMMARY | 2024-03-31 05:02 | XMS_ITS | Encounter Summary ---
Author Organization [facility] Address [address] [place] [address] Phone Care Team Providers Care Tar Heat Exchanger Cleaner Name Role Phone Kraig Ching MD Primary Care Provider [phone] Gautam Cope MD Unavailable Tramaine Roe MD Unavailable [phone] Sukhwinder Uribe MD Unavailable [phone] Shay Guillermo MD Unavailable [phone] Encounter Details Date Type Department Care Team (Late st Contact Info) Description 09/06/[address] 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 Gender Identity Not on file Sexual Orientation Not on file documented as of this encounter Plan of Treatment Not on file documented as of this encounter Visit Diagnoses Diagnosis Prostate cancer (HCC) Malignant neoplasm of prostate documented in this encounter Orders Appointment Requests Count Last Ordered Date Fi rst Ordered Date ONCBCN LAB APPOINTMENT 1 12/06/2018 ONCBCN INJECTION APPOINTMENT REQUEST 1 07/2018 documented in this encounter Care Teams Tar Heat Exchanger Cleaner Relationship Specialty Start Date End Date Kraig Ching MD [address] [place] [address] PCP - General 07/10/16 Gautam Cope MD [address] [facility] [address] [place] [address] Medical Oncologist/Occupational Medicine Officer Medical Oncology 08/18/18 Tramaine Roe MD [address] [place] [address] Referring Physician Urology 08/18/18 Sukhwinder Uribe MD [address] [facility] [address] [place] [address] Consulting Physician Urology 08/18/18 Shay Guillermo MD [address] [place] [address] Referring Physician Urology 08/18/18 documented as of this encounter
--- OUTSIDE RECORDS SUMMARY | 2024-03-31 05:02 | XMS_ITS | Encounter Summary ---
Author Organization [facility] Address [address] [place] [address] Phone Care Team Providers Care Securities Broker Name Role Phone Kraig Ching MD Primary Care Provider [phone] Gautam Cope MD Unavailable Tramaine Roe MD Unavailable [phone] Sukhwinder Uribe MD Unavailable [phone] Shay Guillermo MD Unavailable Reason for Visit * Reason Onset Date Comments Prostate Cancer 11/02/2018 soy products Encounter Details Date Type Department Care Team (Late st Contact Info) Description 11/02/2018 Documentation [facility] Oncology [address] [facility] 7[address] [place] [address] Muna Saleem RN Prostate Cancer (soy products) Social History Tobacco Use Types Packs/Day Years Used Date Smoking Tobacco: Former Smokeless Tobacco: Never Comments:Smoking History Pac ks/day: 10 Cigarettes Alcohol Use Standard Drinks/Week Comments Yes 0 (1 standard drink = 0.6 oz pur e alcohol) Occasional glass of wine. 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 I called back and left her a message since she did not answer, that no, he should not take any soy. I left my number and told her to call me if she had anymore questions. documented in this encounter Plan of Treatment Not on file documented as of this encounter Goals Goal Patient Goal Type Associated Problems Recent Progress Patient-Stated? Author CCM Chronic Pain Care Plan Chronic Care Management No change(03/23 1:47 PM RUBY RAILS DEVELOPER) No Ingrid Oden, SHEA Note: Problem: Chronic Pain Goals: 1. Minimize further functional decline 2. Maximize quality of life 3. Control pain Strategies: - Activity/exercise program recommendation - Conservative stepwise pain medicine strategy with multi-disciplinary approach - Recommend healthy lifestyle strategies and compensatory methods as needed documented as of this encounter Visit Diagnoses Not on filedocumented in this encounter Care Teams Securities Broker Relationship Specialty Start Date End Date Kraig Ching MD [address] [facility] [address] [place] [address] PCP - General 07/10/16 Gautam Cope MD [address] [facility] [address] [place] [address] Medical Oncologist/Director Of Programming Medical Oncology 08/18/18 [place] [address] [place] [address] [address] [place] [address] Referring Physician Urology 08/18/18 Sukhwinder Uribe MD [address] [facility] [address] [place] [address] Consulting Physician Urology 08/18/18 Shay Guillermo MD [address] [facility] [address] [place] [address] Referring Physician Urology 08/18/18 documented as of this encounter
--- OUTSIDE RECORDS SUMMARY | 2024-03-31 05:03 | XMS_ITS | Encounter Summary ---
Author Organization [facility] Healthcare Address [address] [place] [address] Care Team Providers Care Land Reclamation Specialist Name Role Phone Kraig Ching MD Primary Care Provider [phone] Encounter Details Date Type Department Care Team (Latest Contact Info) Description 12/16/2017 4:25 PM CDT - 12/16/2017 4:55 PM CDT Surgery [facility] [place] [address] [facility] [address] [place] [address] Anthony Wilson MD [address] [place] [address] Esophagogastroduodenoscopy OPEN ACCESS Surgery Details Date/Time Status Location OR Service Patient Class Case Class Case Type Trauma Case? 12/16/2017 4:25 PM Posted [facility] ERCP 01 Gastroenterology Outpatient Elective Panel 1 Procedure LRB Anes Op Region Wound Class Comments Esophagogastroduodenoscopy O PEN ACCESS Left Monitor Anesthesia Care Surgeon Surgeon Role Service Panel Anthony Wilson MD Primary Gastroenterology 1 documented in this encounter Social History Tobacco Use Types Packs/Day Years Used Date Smoking Tobacco: Heavy Smoker Smokeless Tobacco: Never Comments:Smoking History Pac ks/day: 10 Cigarettes Alcohol Use Standard Drinks/Week Comments No 0 (1 standard drink = 0.6 oz pur e alcohol) quit 09/2017 Sex and Gender Information Value Date Recorded Sex Assigned at Not on file 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 30 tablet 2 11/10/2017 01/09/2018 levalbuterol (XOPENEX HFA) 45 mcg/actuation inhaler Inhale 1-2 puffs every 6 (six) hours as needed for wheezing. 08/23/2018 lisinopril (PRINIVIL,ZESTRIL) 10 mg tabletIndications: Essential hypertension Take 1 tablet (10 mg total) by mouth daily. 30 tablet 3 11/17/2017 01/24/2018 metFORMIN (GLUCOPHAGE) 500 mg tablet Take 1 [...] 11 11/26/2017 11/11/2018 SITagliptin (JANUVIA) 25 mg tabletIndications: type 2 diabetes mellitus Take 1 tablet (25 mg total) by mouth daily. 30 tablet 11 11/25/2017 11/11/2018 documented as of this encounter Discharge Disposition Disposition Code Departure Means Destination Discharge to home or self care documented in this encounter H&P Notes * Anthony Wilson MD - 12/16/2017 3:44 PM CDT Pre Endoscopy History and Physical David Eric Wei is a 77 y.o. male who is here for Procedure(s): Esophagogastroduodenoscopy OPEN ACCESS The indication(s) for the procedure(s): duodenal ulcer. Past Medical History: Diagnosis Date ??? A-fib [...] surgery wuth Pancreatic abcess/pancreatitis ??? PROSTATECTOMY 1999 Social History Substance Use Topics ??? Smoking status: Heavy Tobacco Smoker ??? Smokeless tobacco: Never Used Comment: Smoking History Packs/day: 10 Cigarettes ??? Alcohol use No Comment: quit 09/2017 Family History Problem Relation Age of Onset ??? Diabetes type II Other Diabetes mellitus type 2; ??? Hypertension Other Hypertension; ??? Kidney failure Mother ??? Dementia Father Patient has no known allergies. Prior to Admission medications Medication Sig Start Date End Date Taking? Authorizing Provider diltiaZEM (CARDIZEM) 120 mg tablet Take 1 tablet (120 mg total) by mouth daily. 11/10/17 Yes Kraig Ching MD lisinopril (PRINIVIL,ZESTRIL) 10 mg tablet Take 1 tablet (10 mg total) by mouth daily. 11/17/17 Yes Lary Villalobos MD metFORMIN (GLUCOPHAGE) 500 mg tablet Take 1 tablet (500 mg total) by mouth 2 (two) times a day withmeals. 10/25/17 10/25/18 Yes SIERRA Landry ONETOUCH ULTRA BLUE TEST STRIP strip TEST SUGAR TWICE DAILY 09/20/17 Yes Kraig Ching MD pantoprazole DR (PROTONIX) 40 mg EC tablet Take 1 tablet (40 mg total) by mouth daily. 12/02/17 Yes Kraig Ching MD pravastatin (PRAVACHOL) 20 mg tablet Take 1 tablet (20 mg total) by mouth daily. 11/26/17 11/26/18 Yes Kraig Ching MD SITagliptin (JANUVIA) 25 mg tablet Take 1 tablet (25 mg total) by mouth daily. 11/25/17 11/25/18 Yes Kraig Ching MD levalbuterol (XOPENEX HFA) 45 mcg/actuation inhaler Inhale 1-2 puffs every 6 (six) hours as needed for wheezing. Historical Provider, Review of Systems A pertinent, focused review of systems was completed and negative, except as noted above. OBJECTIVE: Vitals: Vitals: 12/16/17 1507 Pulse: 77 Physical Exam: Airway: No significant abnormality. Cardiac: No significant abnormality. Pulmonary: No significant abnormality. Neurological: No significant abnormality. Gastrointestinal: No significant abnormality. ASA Score: per Anesthesia Sedation/Anesthesia Plan: per Anesthesia The risks and complications of the procedure have been explained to the patient. Informed consent was signed. Impression and plan: Will proceed with the planned procedure for the reasons stated above. documented in this encounter Procedure Notes * Anthony Wilson MD - 12/16/2017 3:55 PM CDTAssociated Order(s): EGD GI ENDOSCOPY NORTH Patient Name: David Wei Procedure Date: 12/16/2017 3:55 PM Date of : 1940 Admit Type: Outpatient Age: 77 Gender: Male Attending MD: Anthony Wilson MD Room: [facility] ROOM 3 Note Status: Finalized Procedure: Upper GI endoscopy Indications: Follow-up of duodenal ulcer Referring MD: Kraig Ching MD Providers: Anthony Wilson MD Medicines: Monitored Anesthesia Care Complications: No immediate complications. Estimated Blood Loss: Estimated blood loss: none. Procedure: Pre-Anesthesia Assessment: - The risks and benefits of the procedure and the sedation options and risks were discussed with the patient. All questions were answered and informed consent was obtained. - Immediately prior to administration of medications, the patient was re-assessed for adequacy to receive sedatives. The benefits, risks, and alternatives to the procedure and sedation were discussed and informed consent was obtained. The scope was passed under direct vision. The GIF H190 [id number] endoscope was introduced through the mouth, and advanced to the second part of duodenum. The upper GI endoscopy was accomplished without difficulty. The patient tolerated the procedure well. Findings: The examined esophagus was normal. The entire examined stomach was normal. A medium healed ulcer was found in the duodenal bulb. Impression: - Normal esophagus. - Normal stomach. - Duodenal scar at site of healing ulcer. Recommendation: - Observe patient's clinical course following today's procedure with therapeutic intervention. - Return to referring physician as previously scheduled. - Continue PPI once daily. Attending Participation: I personally performed the entire procedure. Electronically signed by Anthony Wilson M.D. Anthony Wilson MD 12/16/2017 4:21:41 PM . Number of Addenda: 0 Note Initiated On: 12/16/2017 3:55 PM Recognized by the [place] [employer] for promoting quality in endoscopy documented in this encounter Plan of Treatment Not on file documented as of this encounter Procedures Procedure Name Priority Date/Time Associated Diagnosis Comments ESOPHAGOGASTRODUODENOSCOPY 12/16 4:00 PM CDT DU (duodenal ulcer) EGD 12/16/2017 3:55 PM CDT POCT GLUCOSE DEVICE Routine Gen Lab 12/16/2017 3:09 PM CDT documented in this encounter Results * EGD (12/16/2017 3:55 PM CDT) Anatomical Region Laterality Modality Other Narrative Procedure Note Anthony Wilson MD - 12/16/2017 3:55 PM CDT GI ENDOSCOPY NORTH Patient Name: David Wei Procedure Date: 12/16/2017 3:55 PM Date of : 1940 Admit Type: Outpatient Age: 77 Gender: Male Attending MD: Anthony Wilson MD Room: [facility] ROOM 3 Note Status: Finalized Procedure: Upper GI endoscopy Indications: Follow-up of duodenal ulcer Referring MD: Kraig Ching MD Providers: Anthony Wilson MD Medicines: Monitored Anesthesia Care Complications: No immediate complications. Estimated Blood Loss: Estimated blood loss: none. Procedure: Pre-Anesthesia Assessment: - The risks and benefits of the procedure and the sedation options and risks were discussed with the patient. All questions were answered and informed consent was obtained. - Immediately prior to administration ofmedications, the patient was re-assessed for adequacy to receive sedatives. The benefits, risks, and alternatives to theprocedure and sedation were discussed and informed consent was obtained. The scope was passed under direct vision.The GIF H190 [id number] endoscope was introduced throughthe mouth, and advanced to the second part of duodenum.The upper GI endoscopy was accomplished withoutdifficulty. The patient tolerated the procedure well. Findings: The examined esophagus was normal. The entire examined stomach was normal. A medium healed ulcer was found in the duodenal bulb. Impression: - Normal esophagus. - Normal stomach. - Duodenal scar at site of healing ulcer. Recommendation: - Observe patient's clinical course followingtoday's procedure with therapeutic intervention. - Return to referring physician as previouslyscheduled. - Continue PPI once daily. Attending Participation: I personally performed the entire procedure. Electronically signed by Anthony Wilson M.D. Anthony Wilson MD 12/16/2017 4:21:41 PM . Number of Addenda: 0 Note Initiated On: 12/16/2017 3:55 PM Recognized by the [place] [employer] for promoting quality in endoscopy Anthony Wilson MD ENDOSCOPY PROCEDURES Final Result * POCT glucose (12/16/2017 3:09 PM CDT) Glucose, POC 102 70 - 199 mg/dL [facility] Blood specimen (specimen) 12/16/2017 3:09 PM CDT 12/16/2017 3:09 PM CDT Narrative [facility] - 12/16/2017 3:15 PM CDT Liliana James MD LAB POCT ORDERABLES - DE VICE Final Result [facility] Department [place] [address] documented in this encounter Visit Diagnoses Diagnosis DU (duodenal ulcer) Duodenal ulcer, unspecified as acute or chronic, without hemorrhage, perforation, or obstruction documented in this encounter Administered Medications Inactive Administered Medications - up to 3 most recent administrations Medication Order MAR Action Action Date Dose Rate Site sodium chloride 0.9% infusion 30 mL/hr, intravenous, Continuous, Starting on Marisabel 12/16/17 at 1515 New Bag 12/16/2017 4:02 PM CDT New Bag 12/16/2017 3:24 PM CDT 30 mL/hr 30 mL/hr documented in this encounter Active and Recently Administered Medications Times are shown in CDT. Continuous Medication Order 12/14/2017 12/15/2017 12/16/2017 sodium chloride 0.9% infusion 30 mL/hr, intravenous, Continuous, Starting on Marisabel 18 at 1515 1524 (New Bag - Prov ider: Chante Schwartz RN)1602 (New Bag - Provider: Bryan Toledo CRNA)1627 (Anesthesia Volume Adjustment - Provider: Bryan Toledo CRNA) sodium chloride 0.9% infusion 125 mL/hr, intravenous, Continuous, Starting on Marisabel 12/16/17 at 1715, Recovery (GI), Until discharge PRN Medication Order 12/14/2017 12/15/2017 12/16/2017 ondansetron (ZOFRAN) injection 4 mg 4 mg, intravenous, Every 30 min PRN, nausea, vomiting, Starting on Marisabel 12/16/17 at 1636, For 2 doses, Recovery (GI), Indications: Nausea and Vomiting documented in this encounter Orders Medications Ordered That Adiel ht Not Have Been Administered Count Last Ordered Date First Ordered Date ondansetron (ZOFRAN) injection 4 mg 1 12/16 sodium chloride 0.9% infusion 1 12/16/2017 documented in this encounter Care Teams Land Reclamation Specialist Relationship Specialty Start Date End Date Kraig Ching MD [address] [facility] [address] [place] [address] PCP - General 07/10/16 documented as of this encounter
--- OUTSIDE RECORDS SUMMARY | 2024-03-31 05:03 | XMS_ITS | Encounter Summary ---
Author Organization [facility] Charge Payment of [facility] Address [address] [place] [address] Phone Care Team Providers Care International Account Manager Name Role Phone Kraig Ching MD Primary Care Provider [phone] Encounter Details Date Type Department Care Team (Late st Contact Info) Description 08/11/2018 Orders Only [facility] ([facility]) - [facility] Urology [address] 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
--- OUTSIDE RECORDS SUMMARY | 2024-03-31 05:03 | XMS_ITS | Encounter Summary ---
Author Organization [facility] Address [address] [place] [address] Phone Care Team Providers Care Jail Guard Name Role Phone Kraig Ching MD Primary Care Provider [phone] Encounter Details Date Type Department Care Team (Late st Contact Info) Description 12/02/2017 Telephone [facility] Card[facility] [address] [facility] Advanced Medicine 8th [place] [address] [place] [address] Junior Gonzalez MD [address] [facility] [address] [place] [address] Social History Tobacco Use Types Packs/Day Years Used Date Smoking Tobacco: Heavy Smoker Smokeless Tobacco: Never Comments:Smoking History Pac ks/day: 10 Cigarettes Alcohol Use Standard Drinks/Week Comments Yes 0 (1 standard drink = 0.6 oz pur e alcohol) Sex and Gender Information Value Date Recorded Sex Assigned at Not on file 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 Medicare, aetna Diagnosis/Reason for Appointment: I21.9 (ICD-10-CM) - Myocardial infarction, unspecified [place] type, unspecified artery (CMS/HCC) Best Contact Number for Patient: Who: Primary Care Physician: Dr. Kraig Ching Prim Phone: Referring Physician: Katherine Tai Phone: If Referring MD is not PCP, list specialty: Yes No If yes, who, phone, when & where? Have you ever seen a Cake Former in an office setting? [] [x] IF YES: Are you planning on transferring care to a MD or are you looking for a second opinion onyour current diagnosis? [] 2nd Opinion (Appts will be CX if records not received 48hrs prior to appt) []Transferring Care to Congenital Patients Only Date and location of last echo: Dr. Alisha Ordaz Patients OnlyHemodialysis or peritoneal dialysis need referral from MD (DO NOT SCHEDULE) Date and location of last renal ultrasound (with doppler or duplex scan): Date and location of last Abd CT Angiogram or Abd MR Angiogram (looks at adrenal glands or blood flow to kidneys): Date and location of last 24-hour Blood Pressure Monitor: Most recent lab work (BMP, Lipids): Patient History Questions Yes No Where/When/Notes Have you ever been diagnosed with or have you ever undergone treatments for cancer? [x] [] If 'Yes', Schedule first available with Dept: 170; Team: Oncology Cardiology If yes, when and where? [x] [] Prostate cancer, treated at [facility] Have you been hospitalized at [place] within the last 3 years? [] [x] If yes, did you see a Cake Former while hospitalized? [] [x] Have you EVER been hospitalized for ANY cardiac issue? [x] [] 09/2017, [facility] for SOB andAFIB Have you ever had an EKG? [x] [] 09/2017, [facility] Have you ever had a stress test? [x] [] Many years ago Have you ever had an echo? [x] [] 09/2017, [facility] Have you ever worn a heart monitor at home? [] [x] Have you ever had a Cardiac Cath? [] [x] Have you ever had a Cardiac Surgery (including ablations, cardioversions, CABG, etc.)? [] [x] Do you have a Pacemaker/Defibrillator or implanted loop recorder (Linq)? (If yes, pt needs device check if scheduled with EP) [] [x] If yes, where, when, type and drier operator? FEMALE PTS: Were any of the tests/procedures completed under a different (maiden) name? If yes, what was it? Notes: Appointment Date: 01/24/18 Type: NEW Provider: homer Gonzalez Location: [facility] [x] Confirm appt date, time, provider and location. [x] Advise pt to arrive 15- 20 min early (30 forMARIAH Ordaz). [x] Advise patient to bring medications/list, photo ID and insurance card [x] Advise of New PatientPacket being mailed to them. [] Inform ref MD Office to fax cardiac related records. documented in this encounter Plan of Treatment Not on file documented as of this encounter Visit Diagnoses Not on filedocumented in this encounter Care Teams Jail Guard Relationship Specialty Start Date End Date Kraig Ching MD [address] [facility] [address] [place] [address] PCP - General 07/10/16 documented as of this encounter
--- OUTSIDE RECORDS SUMMARY | 2024-03-31 05:03 | XMS_ITS | Encounter Summary ---
Author Organization [facility] Healthcare Address [address] [place] [address] Care Team Providers Care Nutrition Coordinator Name Role Phone Kraig Ching MD Primary Care Provider [phone] Encounter Details Date Type Department Care Team (Late st Contact Info) Description 07/19/2018 1:45 PM CDT Lab [facility] ([facility]) [address] [place] [phone] Tramaine Roe MD [address] [place] [address] Malignant neoplasm of prostate (CMS/HCC) Discharge Disposition: Discharge to home or [...] on file 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 Gender Identity Not on file Sexual Orientation Not on file documented as of this encounter Discharge Disposition Disposition Code Departure Means Destination Discharge to home or self care documented in this encounter Plan of Treatment Not on file documented as of this encounter Procedures Procedure Name Priority Date/Time Associated Diagnosis Comments PSA DIAGNOSTIC Routine 07/19/2018 1:43 PM CDT Malignant neoplasm of prostate (CMS/HCC) documented in this encounter Results * (ABNORMAL) PSA diagnostic (07/19/2018 1:43 PM CDT) PSA-Total 11.54(H) <=6.20 ng/mL [facility] Comment: Interpretive Data ?AGE ? SEX ?REFERENCE INTERVAL 0 minutes-150 years ?Female ?None 0 minutes-49 years ? Male ?None ? 50-59 years ? Male ?0-3.90 ? 60-69 years ? Male ?0-5.40 ? 70-79 years ? Male ?0-6.20 ? 80-150 years ?Male ?0-6.20 Current interpretive data last revised 2017. Blood specimen (specimen) 07/19/2018 1:43 PM CDT 07/19/2018 2:13 PM CDT Narrative [facility] - 07/19/2018 3:03 PM CDT us Tramaine Roe MD LAB BLOOD ORDERABLES Final Resu lt [facility] Department [place] [address] documented in this encounter Visit Diagnoses Diagnosis Malignant neoplasm of prostate (HCC) Malignant neoplasm of prostate documented in this encounter Care Teams Nutrition Coordinator Relationship Specialty Start Date End Date Kraig Ching MD [address] [facility] [address] [place] [address] PCP - General 07/10/16 documented as of this encounter
--- OUTSIDE RECORDS SUMMARY | 2024-03-31 05:03 | XMS_ITS | Encounter Summary ---
Author Organization [facility] Healthcare Address [address] [place] [address] Care Team Providers Care Rotary Veneer Machine Operator Name Role Phone Kraig Ching MD Primary Care Provider [phone] Encounter Details Date Type Department Care Team (Late st Contact Info) Description 12/16/2017 2:21 PM CDT - 12/16/2017 5:13 PM CDT Hospital Encounter [facility] [place] [address] [facility] [address] [place] [address] Liliana James MD [address] [place] [address] Discharge Disposition: Discharge to home or self [...] on file 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 Gender Identity Not on file Sexual [...] EGD GI ENDOSCOPY [facility] Patient Name: David Bondsker Procedure Date: 12/16/2017 3:55 PM Date of : 1940 Admit Type: Outpatient Age: 77 Gender: Male Attending MD: Anthony Wilson MD Room: [facility] ENDOSCOPY ROOM 3 Note Status: Finalized Procedure: [...] On: 12/16/2017 3:55 PM Recognized by the [place] [employer] for promoting quality [...] Male Attending MD: Anthony Wilson MD Room: [facility] ENDOSCOPY ROOM 3 Note Status: Finalized Procedure: [...] On: 12/16/2017 3:55 PM Recognized by the [place] [employer] for promoting quality in endoscopy Anthony Wilson MD ENDOSCOPY PROCEDURES Final Result * POCT glucose (12/16/2017 3:09 PM CDT) Glucose, POC 102 70 - 199 mg/dL [facility] Blood specimen (specimen) 12/16/2017 3:09 PM CDT 12/16/2017 3:09 PM CDT Narrative [facility] - 12/16/2017 3:15 PM CDT Liliana James MD LAB POCT ORDERABLES - DE VICE Final Result [facility] Department [place] [address] documented in this encounter Visit Diagnoses Not on filedocumented in this encounter Administered Medications Inactive Administered Medications - up to 3 most recent administrations Medication Order MAR Action Action Date Dose Rate Site sodium chloride 0.9% infusion 30 mL/hr, intravenous, Continuous, Starting on Marisabel 18 at 1515 New Bag 12/16/2017 4:02 PM CDT New Bag 12/16/2017 3:24 PM CDT 30 mL/hr 30 mL/hr documented in this encounter Active and Recently Administered Medications Times are shown in CDT. Continuous Medication Order 12/14/2017 12/15/2017 12/16/2017 sodium chloride 0.9% infusion 30 mL/hr, intravenous, Continuous, Starting on Marisabel 12/16/17 at 1515 1524 (New Bag - Prov ider: Chante Schwartz RN)1602 (New Bag - Provider: Bryan Toledo CRNA)1627 (Anesthesia Volume Adjustment - Provider: Bryan Toledo CRNA) sodium chloride 0.9% infusion 125 mL/hr, intravenous, Continuous, Starting on Marisabel 18 at 1715, Recovery (GI), Until discharge PRN [...] 12/16/2017 documented in this encounter Care Teams Rotary Veneer Machine Operator Relationship Specialty Start Date End Date Kraig Ching MD [address] [address] PCP - General 07/10/16 documented as of this encounter
--- OUTSIDE RECORDS SUMMARY | 2024-03-31 05:03 | XMS_ITS | Encounter Summary ---
Author Organization [facility] Address [address] [place] [address] Care Team Providers Care System Specialist Name Role Phone Kraig Ching MD Primary Care Provider [phone] Encounter Details Date Type Department Care Team (Late st Contact Info) Description 02/04/2018 Telephone [facility] [address] [place] [id number] Kraig Ching MD [address] [place], [place] [id number] Social History Tobacco Use Types Packs/Day Years Used Date Smoking Tobacco: Former Smokeless Tobacco: Never Comments:Smoking History Pac ks/day: 10 Cigarettes Alcohol Use Standard Drinks/Week Comments No 0 (1 standard drink = 0.6 oz pur e alcohol) quit 09/2017 Sex and Gender Information Value Date Recorded Sex Assigned at Not on file 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 The approval number is [id number]. documented in this encounter Plan of Treatment Not on file documented as of this encounter Visit Diagnoses Not on filedocumented in this encounter Care Teams System Specialist Relationship Specialty Start Date End Date Kraig Ching MD [address] [address] [place] [address] PCP - General 07/10/16 documented as of this encounter
--- OUTSIDE RECORDS SUMMARY | 2024-03-31 05:03 | XMS_ITS | Encounter Summary ---
Author Organization 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 Gender Identity Not on file Sexual Orientation Not on file documented as of this encounter Plan of Treatment Not on file documented as of this encounter Procedures Procedure Name Priority Date/Time Associated Diagnosis Comments CARDIOLOGY DOCUMENT SCAN 01/24/2018 documented in this encounter Results * SCAN - CARDIOLOGY (01/24/2018) Anatomical Region Laterality Modality Other us Provider Scanning CV CARDIAC SERVICES PROCEDURES Final Result documented in this encounter Visit Diagnoses Not on filedocumented in this encounter Care Teams Hand Model Relationship Specialty Start Date End Date Kraig Ching MD [address] [facility] [address] [place] [address] PCP - General 07/10/16 documented as of this encounter
--- OUTSIDE RECORDS SUMMARY | 2024-03-31 05:03 | XMS_ITS | Encounter Summary ---
Author Organization [facility] Address [address] [place] [address] Care Team Providers Care Supervisor Soakers Name Role Phone Kraig Ching MD Primary Care Provider [phone] Reason for Visit * Reason Onset Date Comments Sore Throat 05/05/2018 Encounter Details Date Type Department Care Team (Late st Contact Info) Description 05/06/2018 Nurse Triage [facility] [address] [place] [id number] Kraig Ching MD [address] [facility] [address] [place], [place] [id number] Social History Tobacco Use Types Packs/Day Years Used Date Smoking Tobacco: Former Smokeless Tobacco: Former Comments:Smoking History Pac ks/day: 10 Cigarettes Alcohol Use Standard Drinks/Week Comments No 0 (1 standard drink = 0.6 oz pur e alcohol) quit 09/2017 Sex and Gender Information Value Date Recorded Sex Assigned at Not on file 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 FF COMPILING CLERK * Telephone Encounter - Jamaica Shaikh RN - 05/06/2018 2:53 PM CST Reason for Disposition ??? Earache also present Protocols used: SORE [id number] Pt has a hx of DM and COPD.Pt is calling with sx's of a sore throat and L ear pain x 1-2 days. Pt is able to swallow and take in fluids. Pt denies fever. Denies drainage from ear. Declines appt and is requesting abx. Pt states Dr Ching will usually prescribe abx before his sx's worsen. Please advise. [phone]. Please call Rx to [phone]. Care advice given including increased fluids. Pt verbalized understanding and will call with worsening sx's FF COMPILING CLERK * Telephone Encounter - Jamaica Shaikh RN - 05/06/2018 2:48 PM CST Regarding: Sore throat and earache by throat. ----- Message from Vivian Castanon sent at 05/06/2018 2:36 PM TARIFF COMPILING CLERK ----- Symptom Based Call Chief Complaint: Sore throat and earache by throat. Duration: A day and half Appointment Details: Non-emergent Caller's Callback #: [phone] (W) Additional Comments: Wants Dr. Ching to send him antibiotics to [facility]: [phone] (Phone) FF COMPILING CLERK documented in this encounter Plan of Treatment Not on file documented as of this encounter Visit Diagnoses Not on filedocumented in this encounter Care Teams Supervisor Soakers Relationship Specialty Start Date End Date Kraig Ching MD [address] [place] [address] PCP - General 07/10/16 documented as of this encounter
--- OUTSIDE RECORDS SUMMARY | 2024-03-31 05:03 | XMS_ITS | Encounter Summary ---
Author Organization [facility] Address [address] [place] [address] Care Team Providers Care Digital Music Instructor Name Role Phone Kraig Ching MD Primary Care Provider [phone] Reason for Referral * (Routine) - Closed Specialty Diagnoses / Procedures Referred By Contac t Referred To Contact Diagnoses Diastolic dysfunction Procedures Transthoracic Echo Complete W Doppler/CF Josy Hickman MD Phone: tel: fax: [facility] (All Locations) Referral ID Status Reason Start Date Expiration Date Visits Re quested Visits Authorized [id number] Closed 01/24/2018 08/05/2019 1 1 FINISHER Reason for Visit * (Routine) - Closed Specialty Diagnoses / Procedures Referred By Contac t Referred To Contact Diagnoses Diastolic dysfunction Procedures Transthoracic Echo Complete W Doppler/CF Josy Hickman MD Phone: tel: fax: [facility] (All Locations) Referral ID Status Reason Start Date Expiration Date Visits Re quested Visits Authorized [id number] Closed 01/24/2018 08/05/2019 1 1 Encounter Details Date Type Department Care Team (Latest Contact Info) Description 02/23/2018 11:55 AM TIP FINISHER - 02/23/2018 11:59 PM TIP FINISHER Hospital Encounter [facility] [address] [place] [address] Josy Hickman MD [address] [address] Diastolic dysfunction Discharge Disposition: Discharge to home or self [...] on file Legal Sex Male 4:46 PM TIP FINISHER Gender Identity Not on file Sexual Orientation Not on file documented as of this encounter Medications at Time of Discharge diltiaZEM (CARDIZEM) 120 mg tablet TAKE 1 TABLET(120 MG) BY MOUTH DAILY 90 tablet 1 01/10/2018 06/12/2018 levalbuterol (XOPENEX HFA) 45 mcg/actuation inhaler Inhale 1-2 puffs every 6 (six) hours as needed for wheezing. 08/23/2018 lisinopril (PRINIVIL,ZESTRIL ) 40 mg tablet Take 1 tablet (40 mg total) by mouth daily. 90 tablet 11 02/23/2018 07/12/2018 metFORMIN (GLUCOPHAGE) 500 mg tablet Take 1 [...] 11 11/26/2017 11/11/2018 SITagliptin (JANUVIA) 25 mg tabletIndications :type 2 diabetes mellitus Take 1 tablet (25 [...] (TTE) COMPLETE W DOPPLER/CF W CONTRAST Routine 02/23/2018 2:54 PM TIP FINISHER Diastolic dysfunction documented in this encounter Results * TRANSTHORACIC ECHO (TTE) COMPLETE W DOPPLER/CF W CONTRAST (02/23/2018 2:54 PM TIP FINISHER) Anatomical Region Laterality Modality Ultrasound 02/23/2018 2:00 PM TIP FINISHER Narrative 02/23/2018 3:22 PM TIP FINISHER Patient name: David Wei Date of test: 02/23/2018 Type of test: TTE w/Doppler [facility] #: [id number] Date of : 1940 (M) Nailhead Puncher: Leisa Duong ANIRUDH Referring Physician: JOSY HICKMAN MD Contrast Agent: 1.1 ml Optison Administered, (1.9 ml wasted). Contrast Administered by: Ethan Ayoub RN Supervised/Interpreted by: Nalini Ledezma MD Diagnosis: Location: [facility] Reason for test: Diastolic Heart Failure MV Structure: Normal, ?MV Motion: Normal, ?? Mitral Annulus: Normal AV Structure: tricuspid and is nodular thickening, ?? AV Motion: minimally restricted Aotic root: Normal, ?TM: Normal, ?? PV: Normal Valvular Vegetations: none seen, ?Mass/Thrombi: none seen RA: Normal Measurements: ?M-Mode ?Normal ? Aotic Root: ? <3.8 ? LA: ? <4.0 ? RV: ? <2.8 ? LV(ED): ? <5.7 ? LV(ES): ? Variable ?2D Linear Normal ? Aotic Root: 4.1 cm ?<4.0 ? Ao Indexed: 1.9 cm/M2 <2.0 ? LA: ? <4.0 ? RV: ? 3.0 cm ?<4.2 ? LV(ED): ? 4.8 cm ?<5.9 ? LV(ES): ? 3.4 cm ?<4.0 ?2D Vol. ?? Normal ?Indexed ?? Indexed Normal RA: ? 33.0 ml ? 15.5 ml/M2 ?11-39 ? LA: ? 44.0 ml ? 20.6 ml/M2 ?16-34 ? RV: ? <12.7 ? LV(ED): ? 106.0 ml ??62-150 ?49.7 ml/M2 ?<75 ? LV(ES): ? 36.0 ml ?? 21-61 ? 16.9 ml/M2 ?<32 ?3D Vol. ? Indexed Normal LV(ED): ?<75 ? LV(ES): ?<32 ? LV EF: 66 % ?? (Normal: >=52%) ?? LV Septum: 1.5 cm ?(Normal: <1.0 cm) Wall Motion Scoring (1=Normal 2=Hypo 3=Akinetic 4=Dyskin./Aneurysm 0=Not visualized) Parasternal Long [place]:MAS=1 BAS=1 MP=1 BP=1 Parasternal Short [place]:MAS=1 MS=1 TN=1 MP=1 ML=1 MA=1 Apical 4 Chambers:=1 MS=1 BS=1 BL=1 TN=1 AL=1 Apical 2 Chambers:AI=2 TN=1 BI=1 BA=1 MA=1 AA=1 LV Global Longitudinal Strain: RV Global Longitudinal Strain: LV Function: Normal LV Ejection Fraction, (EF=52-72%) RV Function: Normal Septal Motion: Normal Pericardial Effusion: none seen Atrial Septum: Normal DOPPLER/COLOR FOLOW DOPPLER RESULTS: Diastolic Function: Impaired Relaxation Tricuspid Valve: normal TV Pulmonic Valve: normal PV AV Regurgitation: Trace AI AV Stenosis: mild AV Area: 1.5 cm2 AV Pressure Gradient (mmHg): Mean: 11, Peak:19 MV Regurgitation: Mild MR MV Stenosis: no MS MV Area: ??cm2 MV Pressure Gradient (mmHg): Mean: 0 MV ERO: ??cm Regurg. Vol.: ??ml/beat Regurg. Frac.: ??% PA Pressure: ??mmHg DOPPLER/COLOR FOLOW DOPPLER COMMENTS: Trace AI, Mild MR, no , no MS, normal TV, normal PV. Diastolic function: Impaired Relaxation AV V max 2.2m/s CONTRAST: 1.1 ml Optison Administered, (1.9 ml wasted). SUMMARY: No previous echo report. ??Normal LV systolic function though the apex and the distal inferior wall appear hypokinetic on some of the contrast-enhanced views. Normal RV systolic function. Normal chamber sizes. Upper normal aortic root size after indexing to BSA. Normal pericardium without effusion. LV wall thickness is increased with a sigmoid-shaped septum. Nodular thickening of the AV. ?? IVC size is ?? Trace AI, Mild MR, mild , no MS, normal TV, normal PV. Diastolic function: Impaired Relaxation. Confirmed on ??02/23/2018 - 15:22:07 by Nalini Ledezma MD By signing this report, the attending toll gate keeper certifies that he or she has personally supervised and interpreted the echocardiogram and has reviewed and or edited and agrees with the written comments contained within the report. Procedure Note Nalini Ledezma MD - 02/23/2018 Patient name: David Wei Date of test: 02/23/2018 Type of test: TTE /[facility] #: [id number] Date of : 1940 (M) Nailhead Puncher: Leisa Duong ANIRUDH Referring Physician: JOSY HICKMAN MD Contrast Agent: 1.1 ml Optison Administered, (1.9 ml wasted). Contrast Administered by: Ethan Ayoub RN Supervised/Interpreted by: Nalini Ledezma MD Diagnosis: Location: [facility] Reason for test: Diastolic Heart Failure MV Structure: Normal, MV Motion: Normal, Mitral Annulus: Normal AV Structure: tricuspid and is nodular thickening, AV Motion: minimally restricted Aotic root: Normal, TM: Normal, PV: Normal Valvular Vegetations: none seen, Mass/Thrombi: none seen RA: Normal Measurements: M-Mode Normal Aotic Root: <3.8 LA: <4.0 RV: <2.8 LV(ED): <5.7 LV(ES): Variable 2D Linear Normal Aotic Root: 4.1 cm <4.0 Ao Indexed: 1.9 cm/M2 <2.0 LA: <4.0 RV: 3.0 cm <4.2 LV(ED): 4.8 cm <5.9 LV(ES): 3.4 cm <4.0 2D Vol. Normal Indexed Indexed Normal RA: 33.0 ml 15.5 ml/M2 11-39 LA: 44.0 ml 20.6 ml/M2 16-34 RV: <12.7 LV(ED): 106.0 ml 62-150 49.7 ml/M2 <75 LV(ES): 36.0 ml 21-61 16.9 ml/M2 <32 3D Vol. Indexed Normal LV(ED): <75 LV(ES): <32 LV EF: 66 % (Normal: >=52%) LV Septum: 1.5 cm (Normal: <1.0 cm) Wall Motion Scoring (1=Normal 2=Hypo 3=Akinetic 4=Dyskin./Aneurysm 0=Not visualized) Parasternal [place]:MAS=1 BAS=1 MP=1 BP=1 Parasternal [place]:MAS=1 MS=1 TN=1 MP=1 ML=1 MA=1 Apical 4 Chambers:=1 MS=1 BS=1 BL=1 TN=1 AL=1 Apical 2 Chambers:AI=2 TN=1 BI=1 BA=1 MA=1 AA=1 LV Global Longitudinal Strain: RV Global Longitudinal Strain: LV Function: Normal LV Ejection Fraction, (EF=52-72%) RV Function: Normal Septal Motion: Normal Pericardial Effusion: none seen Atrial Septum: Normal DOPPLER/COLOR FOLOW DOPPLER RESULTS: Diastolic Function: Impaired Relaxation Tricuspid Valve: normal TV Pulmonic Valve: normal PV AV Regurgitation: Trace AI AV Stenosis: mild AV Area: 1.5 cm2 AV Pressure Gradient (mmHg): Mean: 11, Peak:19 MV Regurgitation: Mild MR MV Stenosis: no MS MV Area: cm2 MV Pressure Gradient (mmHg): Mean: 0 MV ERO: cm Regurg. Vol.: ml/beat Regurg. Frac.: % PA Pressure: mmHg DOPPLER/COLOR FOLOW DOPPLER COMMENTS: Trace AI, Mild MR, no , no MS, normal TV, normal PV. Diastolic function: Impaired Relaxation AV V max 2.2m/s CONTRAST: 1.1 ml Optison Administered, (1.9 ml wasted). SUMMARY: No previous echo report. Normal LV systolic [...] normal TV, normal PV. Diastolic function: Impaired Relaxation. Confirmed on 02/23/2018 - 15:22:07 by Nalini Ledezma MD By signing this report, the attending toll gate keeper certifies that he or she has personally supervised and interpreted the echocardiogram and has reviewed and or edited and agrees with the written comments contained within the report. Josy Hickman MD CV ECHO PROCEDURES Final Resu lt documented in this encounter Visit Diagnoses Diagnosis Diastolic dysfunction Unspecified heart disease documented in this encounter Administered Medications Inactive Administered Medications - up to 3 most recent administrations Medication Order MAR Action Action Date Dose Rate Site perflutren protein-a (OPTISON) 3 mL in sodium chloride 0.9% 8 mL syringe 1-8 mL, intravenous, Once in imaging, contrast, Starting on Wed02/23/18 at 1341, For 1 dose, Intra-Procedure (CV) Given 02/23/2018 2:47 PM TIP FINISHER 3 mL documented in this encounter Care Teams Digital Music Instructor Relationship Specialty Start Date End Date Kraig Ching MD [address] [facility] [address], [place] [address] PCP - General 07/10/16 documented as of this encounter
--- OUTSIDE RECORDS SUMMARY | 2024-03-31 05:03 | XMS_ITS | Encounter Summary ---
Author Organization [facility] Address [address] [place] [address] Care Team Providers Care Physical Chemistry Teacher Name Role Phone Kraig Ching MD Primary Care Provider [phone] Gautam Cope MD Unavailable Tramaine Roe MD Unavailable [phone] Sukhwinder Uribe MD Unavailable [phone] Shay Guillermo MD Unavailable [phone] Marsha Landis RN Unavailable Unavailab Ilene Kaur RN Unavailable [phone] Encounter Details Date Type Department Care Team (Late st Contact Info) Description 12/16/2017 Orders Only [facility] Health Information Management [address] [place], [place] [id number] Scanning, Provider Social History Tobacco Use Types Packs/Day Years Used Date Smoking Tobacco: Heavy Smoker Smokeless Tobacco: Never Comments:Smoking History Pac ks/day: 10 Cigarettes Alcohol Use Standard Drinks/Week Comments No 0 (1 standard drink = 0.6 oz pur e alcohol) quit 09/2017 Overall Financial Resource Strain (CARDIA) Answe r [...] on file 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 [facility] Chronic Pain Care Plan Chronic Care Management No change(03/23 1:47 PM GOLF INSTRUCTOR) No Ingrid dOen, RN Note: Problem: Chronic Pain Goals: 1. Minimize further functional decline 2. Maximize quality of life 3. Control pain Strategies: - Activity/exercise program recommendation - Conservative stepwise pain medicine strategy with multi-disciplinary approach - Recommend healthy lifestyle strategies and compensatory methods as needed documented as of this encounter Procedures Procedure Name Priority Date/Time Associated Diagnosis Comments GI - RESULT 12/16/2017 documented in this encounter Results * GI - RESULT (12/16/2017) Anatomical Region Laterality Modality Other us Provider Scanning Final Result documented in this encounter Visit Diagnoses Not on filedocumented in this encounter Care Teams Physical Chemistry Teacher Relationship Specialty Start Date End Date Kraig Ching MD [address] [place] [address] PCP - General 07/10/16 Gautam Cope MD [address] [place] [address] Medical Oncologist/Assistant Wrestling Coach Medical Oncology 08/18/18 Tramaine Roe MD [address] [place] [address] Referring Physician Urology 08/18/18 Sukhwinder Uribe MD [address] [place] [address] Consulting Physician Urology 08/18/18 Shay Guillermo MD [address] [place] [address] Referring Physician Urology 08/18/18 Marsha Landis, RN Registered Nurse 11/17/18 Ilene Fragoso, SHEA [address] [place] [address] Emulsification Operator 12/23/18 11/01/19 documented as of this encounter
--- OUTSIDE RECORDS SUMMARY | 2024-03-31 05:03 | XMS_ITS | Encounter Summary ---
Author Organization [facility] Address [address] [place] [address] Phone Care Team Providers Care Butter Fat Tester Name Role Phone Kraig Ching MD Primary Care Provider [phone] Gautam Cope MD Unavailable Tramaine Roe MD Unavailable [phone] Sukhwinder Uribe MD Unavailable [phone] Shay Guillermo MD Unavailable [phone] Encounter Details Date Type Department Care Team (Late st Contact Info) Description 08/24/2018 11:00 AM CDT Office Visit [facility] Nephrology 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 Gender Identity Not on file Sexual Orientation Not on file documented as of this encounter Last Filed Vital Signs Vital Sign Reading Time Taken Comments Blood Pressure 156/76 08/24/2018 11:15 AM CDT Pulse 71 08/24/2018 11:15 AM CDT Temperature - - Respiratory Rate - - Oxygen Saturation - - Inhaled Oxygen Concentration - - Weight 99.2 kg (218 lb 12.8 oz) 019 11:15 AM CDT Height 179.1 cm (5' 10.5 ) 08/24/2018 1 1:15 AM CDT Body Mass Index 30.95 08/24/2018 11:15 AM CDT documented in this encounter Patient Instructions * Patient Instructions* Conchis Chapin MD - 08/24/2018 11:00 AM CDT Start chlorthalidone 12.5 mg (1/2 pill) daily Call with blood pressure in one week Call if you develop cramping documented in this encounter Ordered Prescriptions Prescription Sig Dispense Quantity Refills Last Filled Start Date End Date chlorthalidone 25 mg tablet Take 1/2 tablet daily (12.5 mg) 15 tablet 11 08/24/2018 09/06/2019 documented in this encounter Progress Notes * Conchis Chapin MD - 08/24/2018 11:00 AM CDT NEPHROLOGY SUBSEQUENT OFFICE VISIT NOTE NAME: DAVID DREW DATE OF : 1940 DATE OF VISIT: 08/24/2018 PROBLEM LIST: 1. CKD stage 3 likely secondary to diabetes mellitus and hypertension 2. COPD 3. Paroxysmal Atrial Fibrillation, Xarelto on hold 4. Type II diabetes mellitus, not on insulin, last A1C 7.3 in 08/2017 5. Essential Hypertension 6. Dyslipidemia 7. Pancreatitis in 1999 8. Duodenal Ulcer, EGD 10/2017 9. Prostate Cancer in 1999, [id number], status post radical prostatectomy with subsequent external beam radiation therapy. Now with rising PSA and newly discovered spinal metastasis, meeting with oncology on 09/06/2018 REASON FOR OFFICE VISIT: Follow up for CKD INTERVAL HISTORY: Mr. Drew is a 77 year old male with a history of stage 3 chronic kidney disease likely secondary to diabetes and hypertension who is here for a follow up visit. He was initially seen in our clinic in November 2017, last seen in 02/2018. Since his last visit he has been found tohave a rising PSA (with history of prostate CA) and new spinal metastasis for which he will be seeing oncology later this month. He has had higher BP at home to the 180s for the past 6 weeks. He states this is not associated with any changes in medications. He has back pain but it is chronic and has not changed. He denies any chest pain, shortness of breath, headaches, blurred vision or dizziness. He denies edema or urinary symptoms. He is otherwise well and reports compliance with all of his medications as they are prescribed. His appetite has been good. ?? REVIEW OF SYSTEMS: All other systems are negative. MEDICATIONS: Medication Sig ??? diltiaZEM (CARDIZEM) 120 mg tablet TAKE 1 TABLET BY MOUTH DAILY ??? lisinopril (PRINIVIL,ZESTRIL) 40 mg tablet Take 1 tablet (40 mg total) by mouth daily ??? metFORMIN (GLUCOPHAGE) 500 mg tablet Take [...] pleasant male in no apparent distress BP 156/76 Pulse 71 Ht 179.1 cm (5' 10.5 ) Wt 99.2 kg (218 lb 12.8 oz) BMI 30.95 kg/m?? HENT: Mucus membranes pink and moist. Oropharynx clear. EYES: Sclera anicteric CVS: S1 S2 normal, no murmurs, rub or gallop. No LE edema. LUNGS: clear to auscultation bilaterally ABD: Soft, non-tender, non-distended, bowel sounds normal. No masses. 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 No focal motor deficits PSYCH: Pleasant, cooperative, in no apparent distress. MSK: No joint swelling or tenderness LABORATORY DATA Sodium Date Value Ref Range Status 08/15/2018 139 135 - 145 mmol/L Final 07/15/2018 141 135 - 145 mmol/L Final 03/07/2018 140 135 - 145 mmol/L Final 03/07/2018 140 135 - 145 mmol/L Final Potassium, pl Date Value Ref Range Status 08/15/2018 4.6 3.3 - 4.9 mmol/L Final 07/15/2018 3.7 3.3 - 4.9 mmol/L Final 03/07/2018 4.0 3.3 - 4.9 mmol/L Final 03/07/2018 4.0 3.3 - 4.9 mmol/L Final CO2 Date Value Ref Range Status 08/15/2018 25 22 - 32 mmol/L Final 07/15/2018 25 22 - 32 mmol/L Final 03/07/2018 27 22 - 32 mmol/L Final 03/07/2018 27 22 - 32 mmol/L Final BUN Date Value Ref Range Status 08/15/2018 28 (H) 8 - 25 mg/dL Final 07/15/2018 17 8 - 25 mg/dL Final 03/07/2018 31 (H) 8 - 25 mg/dL Final 03/07/2018 31 (H) 8 - 25 mg/dL Final Creatinine Date Value Ref Range Status 08/15/2018 1.47 (H) 0.80 - 1.30 mg/dL Final 07/15/2018 1.36 (H) 0.80 - 1.30 mg/dL Final 03/07/2018 1.54 (H) 0.80 - 1.30 mg/dL Final 03/07/2018 1.54 (H) 0.80 - 1.30 mg/dL Final Albumin Date Value Ref Range Status 08/15/2018 4.3 3.5 - 5.0 g/dL Final 03/07/2018 4.8 3.5 - 5.0 g/dL Final 11/25/2017 4.2 3.5 - 5.0 g/dL Final Calcium Date Value Ref Range Status 08/15/2018 9.6 8.5 - 10.3 mg/dL Final 07/15/2018 9.7 8.5 - 10.3 mg/dL Final 03/07/2018 9.4 8.5 - 10.3 mg/dL Final 03/07/2018 9.4 8.5 - 10.3 mg/dL Final Phosphorus, pl Date Value Ref Range Status 08/15/2018 3.3 2.3 - 4.5 mg/dL Final 03/07/2018 3.1 2.3 - 4.5 mg/dL Final PTH, intact Date Value Ref Range Status 11/22/2017 32 15 - 65 pg/mL Final Hgb Date Value Ref Range Status 08/15/2018 12.3 (L) 13.0 - 17.5 g/dL Final 07/15/2018 12.4 (L) 13.0 - 17.5 g/dL Final 03/07/2018 12.5 (L) 13.0 - 17.5 g/dL Final 07/15/2018: HbA1c 10.3% Urine dipstick from today: pH 6.0, specific gravity 1.010, trace protein, no blood ASSESSMENT AND PLAN: 1. Chronic kidney disease, stage 3: Mr. Capellan renal function is relatively stable with serum creatinine in his baseline range. At this time, we will continue to monitor his renal function and manage blood pressure as below. We also emphasized the importance of improved glycemic control. ?? 2. Hypertension: His blood pressure is poorly controlled. Today, we will add chlorthalidone 12.5 mgdaily and have discussed a low-salt diet. Advised him to call with BP readings in one week and callif he develops cramping. Will check a serum potassium level in the next 7-10 days. ?? 3. Anemia of CKD: Hb 12.3, at goal ?? 4. Secondary hyperparathyroidism: His most recent calcium and iPTH are within normal limits. We will continue to monitor. ? DISPOSITION: The patient will return follow up in [address] [facility] Nephrology Cosigned by Lin Guerrero MD at 09/04/2018 2:49 PM CDT Associated attestation - Lin Guerrero MD - 09/04/2018 2:49 PM CDT I have seen and examined the patient on 08/24/2018. I agree with the findings and plan of care as documented in the renal fellow's note. documented in this encounter Plan of Treatment Not on file documented as of this encounter Procedures Procedure Name Priority Date/Time Associated Diagnosis Comments POCT URINALYSIS DIPSTICK Routine 08/24/2018 11:27 AM CDT Stage 3 chronic kidney disease (CMS/HCC) documented in this encounter Results * (ABNORMAL) POCT urinalysis dipstick (08/24/2018 11:27 AM CDT) Glucose, ur, POC Negative Negative mg/dL Bilirubin, ur, POC Negative Negative, Small, Moderate, Large Ketones, ur, POC Negative Negative Specific [place], POC 1.010 1.005 - 1.030 Blood, ur, POC Negative Negative pH, ur, POC 6.0 5.0 - 8.0 Protein, ur, POC Trace(A) Negative Urobilinogen, urine, POC 0.2 0.2 - 1.0 mg/dL Nitrite, ur, POC Negative Negative Leukocytes, ur, POC Negative Negative Lot Number [id number] Urine 08/24/2018 11:2 7 AM CDT Lin Guerrero MD POINT OF CARE TEST ORDERABLES Fi nal Result documented in this encounter Visit Diagnoses Diagnosis Stage 3 chronic kidney disease (HCC) documented in this encounter Care Teams Butter Fat Tester Relationship Specialty Start Date End Date Kraig Ching MD [address] [facility] [address] [place] [address] PCP - General 07/10/16 Gautam Cope MD [address] [facility] [address] [place] [address] Medical Oncologist/Pointer Helper Medical Oncology 08/18/18 Tramaine Roe MD [address] [facility] [address] [place] [address] Referring Physician Urology 08/18/18 Sukhwinder Uribe MD [address] [facility] [address] [place] [address] Consulting Physician Urology 08/18/18 Shay Guillermo MD [address] [facility] [address] [place] [address] Referring Physician Urology 08/18/18 documented as of this encounter
--- OUTSIDE RECORDS SUMMARY | 2024-03-31 05:03 | XMS_ITS | Encounter Summary ---
Author Organization [facility] Address [address] [place] [address] Phone Care Team Providers Care Manager Practice Name Role Phone Kraig Ching MD Primary Care Provider [phone] Gautam Cope MD Unavailable Tramaine Roe MD Unavailable [phone] Sukhwinder Uribe MD Unavailable [phone] Shay Guillermo MD Unavailable [phone] Encounter Details Date Type Department Care Team (Late st Contact Info) Description 08/23/2018 Orders Only [facility] Scheduling [address] [place] [address] Bella Mann CMA Social History Tobacco Use Types Packs/Day Years Used Date Smoking Tobacco: Former Smokeless Tobacco: Former Comments:Smoking History Pac ks/day: 10 Cigarettes Alcohol Use Standard Drinks/Week Comments No 0 (1 standard drink = 0.6 oz pur e alcohol) quit 09/2017 Sex and Gender Information Value Date Recorded Sex Assigned at Not on file 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 08/23/2018 documented as of this encounter Care Teams Manager Practice Relationship Specialty Start Date End Date Kraig Ching MD [address] [place] [address] PCP - General 07/10/16 Gautam Cope MD [address] [place] [address] Medical Oncologist/Burrer Hand Medical Oncology 08/18/18 Tramaine Roe MD [address] [place] [address] Referring Physician Urology 08/18/18 Sukhwinder Uribe MD [address] [place] [address] Consulting Physician Urology 08/18/18 Shay Guillermo MD [address] [place] [address] Referring Physician Urology 08/18/18 documented as of this encounter
--- OUTSIDE RECORDS SUMMARY | 2024-03-31 05:03 | XMS_ITS | Encounter Summary ---
Author Organization [facility] Facility Care Team Providers Care Dope Mixer Name Role Phone Kraig Ching MD Primary Care Provider [phone] Encounter Details Date Type Department Care Team (Latest Contact Info) Description 07/15/2018 Travel Social History Tobacco Use Types Packs/Day Years Used Date Smoking Tobacco: Former Smokeless Tobacco: Former Comments:Smoking History Pac ks/day: 10 Cigarettes Alcohol Use Standard Drinks/Week Comments No 0 (1 standard drink = 0.6 oz pur e alcohol) quit 09/2017 Sex and Gender Information Value Date Recorded Sex Assigned at Not on file 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
--- OUTSIDE RECORDS SUMMARY | 2024-03-31 05:03 | XMS_ITS | Encounter Summary ---
Author Organization [facility] Address [address] [place] [address] Phone Care Team Providers Care Credit Risk Management Director Name Role Phone Kraig Ching MD Primary Care Provider [phone] Reason for Referral * (Routine) - Closed Specialty Diagnoses / Procedures Referred By Saleem t Referred To Contact Diagnoses Diastolic dysfunction Procedures Transthoracic Echo Complete W Doppler/CF Josy Hickman MD Phone: tel: fax: [facility] (All Locations) Referral ID Status Reason Start Date Expiration Date Visits Re quested Visits Authorized [id number] Closed 01/24/2018 08/05/2019 1 1 Reason for Visit * Consultation (Routine) - Closed Specialty Diagnoses / Procedures Referred By Saleem narvaez Referred To Contact Cardiology Diagnoses Myocardial infarction, unspecified FL type, unspecified artery (HCC) Katherine Del Rio PA Phone: tel: fax: Josy Hickman MD Phone: tel: fax: Referral ID Status Reason Start Date Expiration Date V isits Requested Visits Authorized [id number] Closed Specialty Services Required 11/09/2017 05/21/2019 1 1 Encounter Details Date Type Department Care Team (Late st Contact Info) Description 01/24/2018 1:00 PM CDT Office Visit [facility] Cardiology [address] [facility] [address] 8th [place] [address] [place] [address] Josy Hickman MD [address] [facility] [address] [place] [address] Diastolic dysfunction (Primary Dx); Myocardial infarction, unspecified FL type, unspecified artery (CMS/HCC); Essential hypertension; PAF (paroxysmal atrial fibrillation) (CMS/HCC); Chronic diastolic heart failure (CMS/HCC); Shortness of breath Social History Tobacco Use Types Packs/Day Years Used Date Smoking Tobacco: Former Smokeless Tobacco: Never Comments:Smoking History Pac ks/day: 10 Cigarettes Alcohol Use Standard Drinks/Week Comments No 0 (1 standard drink = 0.6 oz pur e alcohol) quit 09/2017 Sex and Gender Information Value Date Recorded Sex Assigned at Not on file 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 Gender Identity Not on file Sexual Orientation Not on file documented as of this encounter Last Filed Vital Signs Vital Sign Reading Time Taken Comments Blood Pressure 168/80 01/24/2018 12:57 PM CDT Pulse 60 01/24/2018 12:56 PM CDT Temperature 36.7 ??C (98 ??F) 01/24/2018 12:56 PM CDT Respiratory Rate - - Oxygen Saturation 96% 01/24/2018 12:56 PM CDT Inhaled Oxygen Concentration - - Weight 95.3 kg (210 lb 3.2 oz) 01/24/2018 12:56 PM CDT Height 177.8 cm (5' 10 ) 01/24/2018 12:56 PM CDT Body Mass Index 30.16 01/24/2018 12:56 PM CDT documented in this encounter Patient Instructions * Patient Instructions* Josy Hickman MD - 01/24/2018 1:00 PM CDT Echo Increase lisinopril to 20 mg qd BMP one week documented in this encounter Ordered Prescriptions Prescription Sig Dispense Quantity Refills Last Filled Start Date End Date lisinopril (PRINIVIL,ZESTRIL) 20 mg tabletIndications: Essential hypertension Take 1 tablet (20 mg total) by mouth daily. 90 tablet 3 01/24/2018 02/23/2018 documented in this encounter Progress Notes * Josy Hickman MD - 01/24/2018 1:00 PM CDT Patient Name: David Wei Provider: Josy Hickman MD : 1940 Date of Service: 01/24/2018 Referring: [facility] CHIEF COMPLAINT: Paroxysmal atrial fibrillation, diastolic heart failure HISTORY OF PRESENT ILLNESS: We had the pleasure of seeing Mr. Wei at the [facility] to establish care. As you know, he is a 77 y/o man with a history of hypertension, diabetes, COPDwith smoking history who initially presented to an OSH with acute onset shortness of breath. The patient states he woke up with sudden onset shortness of breath without any other symptoms including chest pain, PND, orthopnea, or lower extremity edema. When he presented to the OSH, his troponins were only very mildly elevated to 0.05-0.08 and elevated BNP. He was given steroids for a potential COPD exacerbation and also underwent a V/Q scan. After one day in the hospital, his shortness of breathhad resolved. During this time, he was noted to go into atrial fibrillation, which was a new diagnosis. He was started on diltiazem and Xarelto for anticoagulation. Also he underwent a TTE which, by report, showed normal LV systolic function with abnormal diastolic function. He was eventually discharged on a steroid taper. He presented back to the hospital after he was noted to have a GI bleed. He underwent an EGD which showed a duodenal ulcer. At that time, his Xarelto was stopped. He had a repeat EGD on 12/16/17 which showed a duodenal scar at the site of the healing ulcer. He presents to us to establish care given these new diagnoses. Since his first admission, he denies any other feelingsof shortness of breath. He also denies having any chest pain, PND, orthopnea, or lower extremity edema. Of note, he had a negative nuclear stress test in 2009. REVIEW OF SYSTEMS: A detailed review of systems was obtained and significant for what has been described in the HPI. All other systems were reviewed and otherwise negative. PAST MEDICAL HISTORY: 1. Paroxysmal atrial fibrillation - recently diagnosed complicated by GI bleed after started Xarelto, now off anticoagulation at this time 2. Diabetes 3. Hypertension 4. Chronic kidney disease 5. History of prostate cancer 6. History of pancreatitis 7. COPD MEDICATIONS: Current Outpatient Prescriptions: ??? diltiaZEM (CARDIZEM) 120 mg tablet, TAKE 1 TABLET(120 MG) BY MOUTH DAILY, Disp: 90 tablet, Rfl:1 ??? lisinopril (PRINIVIL,ZESTRIL) 20 mg tablet, Take 1 tablet (20 mg total) by mouth daily., Disp: 90 tablet, Rfl: 3 ??? metFORMIN (GLUCOPHAGE) 500 mg tablet, Take 1 tablet (500 mg total) by mouth 2 (two) times a daywith meals., Disp: 60 tablet, Rfl: 11 ??? pantoprazole DR (PROTONIX) 40 mg EC tablet, Take 1 tablet (40 mg total) by mouth daily., Disp: 30 tablet, Rfl: 11 ??? pravastatin (PRAVACHOL) 20 mg tablet, Take 1 tablet (20 mg total) by mouth daily., Disp: 30 tablet, Rfl: 11 ??? SITagliptin (JANUVIA) 25 mg tablet, Take 1 tablet (25 mg total) by mouth daily., Disp: 30 tablet, Rfl: 11 ??? levalbuterol (XOPENEX HFA) 45 mcg/actuation inhaler, Inhale 1-2 puffs every 6 (six) hours as needed for wheezing., Disp: , Rfl: ??? ONETOUCH ULTRA BLUE TEST STRIP strip, TEST SUGAR TWICE DAILY, Disp: 100 each, Rfl: 3 ALLERGIES: Patient has no known allergies. FAMILY HISTORY: Family History Problem Relation Age of Onset ??? Diabetes type II Other Diabetes mellitus type 2; ??? Hypertension Other Hypertension; ??? Kidney failure Mother ??? Dementia Father SOCIAL HISTORY: Social History Social History ??? Marital status: Spouse name: N/A ??? Number of children: N/A ??? Years of education: N/A Social History Main Topics ??? Smoking status: Former Smoker ??? Smokeless tobacco: Never Used Comment: Smoking History Packs/day: 10 Cigarettes ??? Alcohol use No Comment: quit 09/2017 ??? Drug use: No ??? Sexual activity: Not Asked Other Topics Concern ??? None Social History Narrative ??? None PHYSICAL EXAM: BP 168/80 (BP Location: Right arm, Patient Position: Sitting) Pulse 60 Temp 36.7 ??C (98 ??F) (Oral) Ht 177.8 cm (5' 10 ) Wt 95.3 kg (210 lb 3.2 oz) SpO2 96% BMI 30.16 kg/m?? General: A&Ox3, NAD HEENT: NC/AT, MMM, OP clear Eyes: PERRL, EOMI Neck: Supple, no LAD CV: Regular rate and rhythm, Grade 2/6 systolic murmur, no rubs or gallops, no JVD Lungs: Clear to auscultation bilaterally, no wheezes, rales, rhonchi Abdomen: soft, non-tender, non-distended, +BS Ext: Warm, well-perfused, no edema or cyanosis Neuro: Alert, non-focal Skin: No rashes Psych: Normal mood and affect DIAGNOSTIC DATA: Sodium Date Value Ref Range Status 11/25/2017 142 135 - 145 mmol/L Final Potassium, pl Date Value Ref Range Status 11/25/2017 4.3 3.3 - 4.9 mmol/L Final Chloride Date Value Ref Range Status 11/25/2017 104 97 - 110 mmol/L Final CO2 Content Date Value Ref Range Status 01/24/2018 26 21 - 29 mmol/L Final BUN Date Value Ref Range Status 11/25/2017 28 (H) 8 - 25 mg/dL Final Creatinine Date Value Ref Range Status 01/24/2018 1.41 (H) 0.70 - 1.30 mg/dL Final eGFR Non-AFR. Mexican Date Value Ref Range Status 06/15/2014 54 (L) > OR = 60 mL/min/1.73m2 Final Glucose Date Value Ref Range Status 01/24/2018 98 64 - 99 mg/dL Final Comment: NONFASTING GLUCOSE RANGE = 64-199 mg/dL FASTING GLUCOSE 64 - 99 = NORMAL FASTING GLUCOSE 100 - 125 = IMPAIRED FASTING GLUCOSE FASTING GLUCOSE >=126 = PROVISIONAL DIAGNOSIS OF DIABETES Alk phos Date Value Ref Range Status 11/25/2017 85 40 - 130 Units/L Final Bilirubin, total Date Value Ref Range Status 11/25/2017 0.2 0.1 - 1.2 mg/dL Final Albumin Date Value Ref Range Status 11/25/2017 4.2 3.5 - 5.0 g/dL Final ALT Date Value Ref Range Status 11/25/2017 16 7 - 55 Units/L Final AST Date Value Ref Range Status 11/25/2017 17 10 - 50 Units/L Final No results found for: TSH, T3FREE, FREET4 Cholesterol Date Value Ref Range Status 11/25/2017 226 (H) 30 - 200 mg/dL Final Comment: Interpretive Data Desirable: <200 mg/dL Borderline high: 200-239 mg/dL High: > or = 240 mg/dL Literature Reference: National Cholesterol Education Program (NCEP) Expert Panel on Detection, Evaluation, and Treatment of High Blood Cholesterol in Adults (Adult Treatment Panel III). Circulation 2004; 110:227. Current interpretive data was last revised on 2015. Triglycerides Date Value Ref Range Status 11/25/2017 143 0 - 150 mg/dL Final Comment: Interpretive Data Desirable: < 150 mg/dL Borderline High: 150 - 199 mg/dL High: 200 - 499 mg/dL Very High: > or = 499 mg/dL Literature Reference: See Cholesterol Current interpretive data was last revised on 2015. HDL Date Value Ref Range Status 11/25/2017 40 >=40 mg/dL Final Comment: Interpretive Data Less than 40 mg/dL - low; A major risk factor for heart disease. Greater than or equal to 60 mg/dL - High; considered protective of heart disease. Literature Reference: See Cholesterol Current interpretive data was last revised on 2015. LDL Date Value Ref Range Status 09/23/2015 126 10 - 129 mg/dl Comment: Interpretive Data Optimal: < 100 mg/dL Near Optimal: 100 - 129 mg/dL Borderline High: 130 - 159 mg/dL High: 160 - 189 mg/dL Very high: > or = 190 mg/dL Literature Reference: See Cholesterol Current interpretive data was last revised on 2015. The patient had an ECG that showed normal sinus rhythm, first degree AV block with a HR of 60 bpm. There was low voltage in the limb leads. His OSH echocardiogram was reviewed which appears to show normal LV function, though technically difficult study, no strain imaging present. Impaired relaxation. ASSESSMENT AND PLAN: Mr. Wei is a 77 y.o. male who presents with the following issues: 1. Shortness of breath: His symptoms that he presented with to the outside hospital have now resolved. He denies any chest pain or shortness of breath with exertion. His TTE from the outside was a technically difficult study and thus we would like to repeat the echocardiogram here, as he does have evidence of diastolic dysfunction along with low voltage seen on his ECG. It is not clear what precipitated his prior admission but because he has not had any recurrence of his symptoms, no further cardiac work-up (other than a repeat echocardiogram) is warranted at this time. 2. Paroxysmal atrial fibrillation: He does have an ECG from the outside hospital showing atrial fibrillation. He was previously started on Xarelto which was complicated by a GI bleed due to duodenal ulcer. Given his elevated CHADS-Vasc score, he would benefit from anticoagulation, though we would like to make sure it is safe from a GI perspective before restarting. We will plan to touch base withour GI physicians to determine when it would be safe to restart. We would likely start Eliquis 5 mgPO BID when able. He will continue on diltiazem at this time. 3. Hypertension: His blood pressure is slightly elevated today and he states it has been elevated at home as well. It appears his lisinopril was decreased recently due to some acute kidney injury, which is now improved. We will increase his lisinopril to 20 mg daily with plan to obtain a BMP in 1 week to assess his renal function. DISPOSITION: We will determine Mr. Wei's follow-up after the results of his echocardiogram return. Tom Grayson MD I have seen examined the patient. I discussed management with the electrical maintenance engineer. I agree with assessment and plan as outlined above. Josy Hickman M.D., F.A.C.C. candy bar attendant documented in this encounter Plan of Treatment Not on file documented as of this encounter Results * TRANSTHORACIC ECHO (TTE) COMPLETE W DOPPLER/CF W CONTRAST (02/23/2018 2:54 PM FLIGHT SECURITY SPECIALIST) Anatomical Region Laterality Modality Ultrasound 02/23/2018 2:00 PM FLIGHT SECURITY SPECIALIST Narrative 02/23/2018 3:22 PM FLIGHT SECURITY SPECIALIST Patient name: David Wei Date of test: 02/23/2018 Type of test: TTE w/Doppler [facility] #: [id number] Date of : 1940 (M) Instructor Extension Work: Leias Duong ANIRUDH Referring Physician: JOSY HICKMAN MD Contrast Agent: 1.1 ml Optison Administered, (1.9 ml wasted). Contrast Administered by: Ethan Ayoub RN Supervised/Interpreted by: Nalini Ledezma MD Diagnosis: Location: [facility] Reason for test: Diastolic Heart Failure MV [...] 2=Hypo 3=Akinetic 4=Dyskin./Aneurysm 0=Not visualized) Parasternal [place]in[place]:MAS=1 BAS=1 MP=1 BP=1 Parasternal Short Herminie:MAS=1 MS=1 FL=1 MP=1 ML=1 MA=1 Apical 4 Chambers:=1 MS=1 BS=1 BL=1 FL=1 AL=1 Apical 2 Chambers:AI=2 FL=1 BI=1 BA=1 MA=1 AA=1 LV Global Longitudinal [...] MD By signing this report, the attending suggestion clerk certifies that he or she has personally supervised and interpreted the echocardiogram and has reviewed and or edited and agrees with the written comments contained within the report. Procedure Note Nalini Ledezma MD - 02/23/2018 Patient name: David Wei Date of test: 02/23/2018 Type of test: TTE w/Doppler [facility] #: [id number] Date of : 1940 (M) Instructor Extension Work: Leisa Duong ANIRUDH Referring Physician: JOSY HICKMAN MD Contrast Agent: 1.1 ml Optison Administered, (1.9 ml wasted). Contrast Administered by: Ethan Ayoub RN Supervised/Interpreted by: Nalini Ledezma MD Diagnosis: Location: [facility] Reason for test: Diastolic Heart Failure MV [...] 2=Hypo 3=Akinetic 4=Dyskin./Aneurysm 0=Not visualized) Parasternal [place]:MAS=1 BAS=1 MP=1 BP=1 Parasternal [place]in[place]:MAS=1 MS=1 FL=1 MP=1 ML=1 MA=1 Apical 4 Chambers:=1 MS=1 BS=1 BL=1 FL=1 AL=1 Apical 2 Chambers:AI=2 FL=1 BI=1 BA=1 MA=1 AA=1 LV Global Longitudinal [...] MD By signing this report, the attending suggestion clerk certifies that he or she has personally supervised and interpreted the echocardiogram and has reviewed and or edited and agrees with the written comments contained within the report. us Josy Hickman MD CV ECHO PROCEDURES Final Resu lt * (ABNORMAL) Basic metabolic panel (01/24/2018 2:21 PM CDT) [facility] Glucose 98 64 - 99 mg/dL [facility] Comment: NONFASTING GLUCOSE RANGE = 64-199 mg/dL FASTING GLUCOSE 64 - 99 = NORMAL FASTING GLUCOSE 100 - 125 = IMPAIRED FASTING GLUCOSE FASTING GLUCOSE >=126 = PROVISIONAL DIAGNOSIS OF DIABETES Potassium 4.2 3.3 - 5.1 mmol/L [facility] Creatinine 1.41(H) 0.70 - 1.30 mg/dL [facility] BUN 21 7 - 23 mg/dL [facility] Sodium 146(H) 135 - 145 mmol/L [facility] Chloride 104 95 - 107 mmol/L [facility] CO2 Content 26 21 - 29 mmol/L [facility] Calcium 9.4 8.6 - 10.3 mg/dL [facility] Blood specimen (specimen) 01/24/2018 2:21 PM CDT 01/24/2018 3:55 PM CDT us Josy Hickman MD LAB BLOOD ORDERABLES Final Re sult [facility] documented in this encounter Visit Diagnoses Diagnosis Diastolic dysfunction- Primary Unspecified heart disease Myocardial infarction, unspecified FL type, unspecified artery (HCC) Essential hypertension Unspecified essential hypertension PAF (paroxysmal atrial fibrillation) (CMS/HCC) (HCC) Atrial fibrillation Chronic diastolic heart failure (HCC) Chronic diastolic heart failure Shortness of breath Diastolic dysfunction Unspecified heart disease documented in this encounter Discontinued Medications Medication Sig Discontinue Reason Start Date End Da te lisinopril (PRINIVIL,ZESTRIL) 10 mg tabletIndications:Alexandra al hypertension Take 1 tablet (10 mg total) by mouth daily. Reorder 11/17/2017 01/24/2018 documented as of this encounter Orders Outpatient Referral Count Last Ordered Date Fir st Ordered Date AMB REFERRAL TO CARDIOLOGY 1 01/24/2018 documented in this encounter Care Teams Credit Risk Management Director Relationship Specialty Start Date End Date Kraig Ching MD [address] [address] PCP - General 07/10/16 documented as of this encounter
--- OUTSIDE RECORDS SUMMARY | 2024-03-31 05:03 | XMS_ITS | Encounter Summary ---
Author Organization [facility] Address [address] [place] [address] Care Team Providers Care Train Examiner Name Role Phone rKaig Ching MD Primary Care Provider [phone] Encounter Details Date Type Department Care Team (Late st Contact Info) Description 12/02/2017 Orders Only [facility] [address] [place] [id number] Kraig Ching MD [address] [facility] [address] [place], [place] [id number] Social History Tobacco Use Types Packs/Day Years Used Date Smoking Tobacco: Heavy Smoker Smokeless Tobacco: Never Comments:Smoking History Pac ks/day: 10 Cigarettes Alcohol Use Standard Drinks/Week Comments Yes 0 (1 standard drink = 0.6 oz pur e alcohol) Sex and Gender Information Value Date Recorded Sex Assigned at Not on file 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 30 tablet 11 12/02/2017 12/05/2018 documented in this encounter Plan of Treatment Not on file documented as of this encounter Visit Diagnoses Not on filedocumented in this encounter Discontinued Medications Medication Sig Discontinue Reason Start Date End Da te pantoprazole DR (PROTONIX) 40 mg EC tablet TK 1 T PO D Reorder 11/04/2017 12/02/2017 documented as of this encounter Care Teams Train Examiner Relationship Specialty Start Date End Date Kraig Ching MD [address] [facility] [address] [place] [address] PCP - General 07/10/16 documented as of this encounter
--- OUTSIDE RECORDS SUMMARY | 2024-03-31 05:03 | XMS_ITS | Encounter Summary ---
Author Organization [facility] Address [address] [place] [address] Phone Care Team Providers Care Executive Director Of Marketing Name Role Phone Kraig Ching MD Primary Care Provider Encounter Details Date Type Department Care Team (Late st Contact Info) Description 03/10/2018 Telephone [facility] Cardiology [address] [facility] [address] [place] [address] [place] [id number] Junior Gonzalez MD [address] [facility] [address] [place] [address] Social History Tobacco Use Types Packs/Day Years Used Date Smoking Tobacco: Former Smokeless Tobacco: Former Comments:Smoking History Pac ks/day: 10 Cigarettes Alcohol Use Standard Drinks/Week Comments No 0 (1 standard drink = 0.6 oz pur e alcohol) quit 09/2017 Sex and Gender Information Value Date Recorded Sex Assigned at Not on file 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 Gender Identity Not on file Sexual Orientation Not on file documented as of this encounter Miscellaneous Notes * Telephone Encounter - Comfort العراقي RN - 03/23/2018 3:19 PM PLASTERING CONTRACTOR See result notes TERING CONTRACTOR * Telephone Encounter - Tereza Alex - 03/10/2018 10:00 AM CST Lisa Pt states returning call TERING CONTRACTOR documented in this encounter Plan of Treatment Not on file documented as of this encounter Visit Diagnoses Not on filedocumented in this encounter Care Teams Executive Director Of Marketing Relationship Specialty Start Date End Date Kraig Ching MD [address] [facility] [address] [place] [address] PCP - General 07/10/16 documented as of this encounter
--- OUTSIDE RECORDS SUMMARY | 2024-03-31 05:03 | XMS_ITS | Encounter Summary ---
Author Organization [facility] Address [address] [place] [address] Phone Care Team Providers Care Public Relations Writer Name Role Phone Kraig Ching MD Primary Care Provider [phone] Encounter Details Date Type Department Care Team (Late st Contact Info) Description 03/08/2018 Orders Only [facility] Cardiology [address] 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
--- OUTSIDE RECORDS SUMMARY | 2024-03-31 05:03 | XMS_ITS | Encounter Summary ---
Author Organization [facility] Address [address] [place] [address] Phone Care Team Providers Care Filling Separator Name Role Phone Kraig Ching MD Primary Care Provider [phone] Encounter Details Date Type Department Care Team (Late st Contact Info) Description 01/24/2018 2:10 PM CDT Lab [facility] Endocrinology Metabolism and Lipid [address] 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 [employer] Gender Identity Not on file Sexual Orientation Not on file documented as of this encounter Plan of Treatment Not on file documented as of this encounter Procedures Procedure Name Priority Date/Time Associated Diagnosis Comments BASIC METABOLIC PANEL Routine 01/24/2018 2:21 PM CDT Diastolic dysfunction Essential hypertension documented in this encounter Results * (ABNORMAL) Basic metabolic panel (01/24/2018 2:21 PM CDT) Pathologist [facility] Glucose 98 64 - 99 mg/dL [facility] Comment: NONFASTING GLUCOSE RANGE = 64-199 mg/dL [...] PM CDT 01/24/2018 3:55 PM CDT us Junior Gonzalez MD LAB BLOOD ORDERABLES Final Re sult [facility] documented in this encounter Visit Diagnoses Diagnosis Diastolic dysfunction Unspecified heart disease Essential hypertension Unspecified essential hypertension documented in this encounter Care Teams Filling Separator Relationship Specialty Start Date End Date Kraig Ching MD [address] [address] PCP - General 07/10/16 documented as of this encounter
--- OUTSIDE RECORDS SUMMARY | 2024-03-31 05:03 | XMS_ITS | Encounter Summary ---
Author Organization [facility] Healthcare Address [address] [place] [address] Care Team Providers Care Rim Fire Priming Tool Setter Name Role Phone Kraig Ching MD Primary Care Provider [phone] Reason for Visit * Diagnostic Imaging (Routine) - Closed Specialty Diagnoses / Procedures Referred By Contac t Referred To Contact Diagnoses Malignant neoplasm of prostate (HCC) Procedures NM Bone Imaging Whole Body Nuclear Medicine bone scan multiple Tramaine Roe MD Phone: tel: fax: [address] [address] Referral ID Status Reason Start Date Expiration Date Visits Re quested Visits Authorized [id number] Closed 07/19/2018 01/28/2020 2 2 Encounter Details Date Type Department Care Team (Latest Contact Info) Description 08/10/2018 7:40 AM CDT - 08/10/2018 11:59 PM CDT Hospital Encounter [facility] [address] [place] [id number] Tramaine Roe MD [address] [address] Malignant neoplasm of prostate (CMS/HCC) Discharge Disposition: [...] on file 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 30 tablet 11 03/07/2018 11/17/2022 diltiaZEM (CARDIZEM) 120 mg tablet TAKE 1 TABLET BY MOUTH DAILY 90 tablet 1 06/12/2018 12/06/2018 levalbuterol (XOPENEX HFA) 45 mcg/actuation inhaler Inhale [...] BODY Schedule Routine, Read Routine (OP Routine) 08/10/2018 11:58 AM CDT Malignant neoplasm of prostate (CMS/HCC) documented in this encounter Results * NM Bone Imaging Whole Body (08/10/2018 11:58 AM CDT) Anatomical Region Laterality Modality N/A Digital Radiogra phy 08/10/2018 1:35 PM CDT Impressions 08/10/2018 4:27 PM CDT Focal increased uptake projecting the right posterior aspect of L2 vertebral body, Given increasing of PSA, this is suspicious for metastatic disease. Dictated by: Garcia Gallagher M.D. The radiology attending physician has personally reviewed this study, and had reviewed and/or edited this written report and agrees with it. Electronically signed by: Aby Frederick M.D. Narrative 08/10/2018 4:27 PM CDT EXAMINATION: ??BONE SCINTIGRAPHY (WHOLE BODY AND TOMOGRAPHIC) DATE OF STUDY: ??08/10/2018 RADIOPHARMACEUTICAL: ?? 20.8 mCi Tc-99m MDP i.v. HISTORY: ??77-year-old history of prostate cancer in 1990 status post prostatectomy and radiation now with increasing PSA FINDINGS: Delayed planar images were obtained of the whole body. ??In addition, tomographic (SPECT-CT) images of the lumbar spine were obtained after the planar images. (The noncontrast CT images are used for attenuation correction and for fusion with emission SPECT images to allow for anatomical localization of SPECT findings.) Prior nuclear medicine studies used for comparison: none Other radiographic comparisons: MRI lumbar spine from 07/20/[address] abdomen pelvis from 02/28/2015 Planar images demonstrate intense increased tracer uptake projecting the L2 vertebral body. SPECT images show increased tracer uptake projecting the right posterior aspect of the L2 vertebral body. Additional CT findings: There is sclerosis corresponding to the area of increased uptake. ??Multilevel degenerative disc disease are noted. Procedure Note Aby Frederick MD - 08/10/2018 EXAMINATION: BONE SCINTIGRAPHY (WHOLE BODY AND TOMOGRAPHIC) DATE OF STUDY: 08/10/2018 RADIOPHARMACEUTICAL: 20.8 mCi Tc-99m MDP i.v. HISTORY: 77-year-old history of prostate cancer in 1990 status post prostatectomy and radiation now with increasing PSA FINDINGS: Delayed planar images were obtained of the whole body. In addition, tomographic (SPECT-CT) images of the lumbar spine were obtained after the planar images. (The noncontrast CT images are used for attenuation correction and for fusion with emission SPECT images to allow for anatomical localization of SPECT findings.) Prior nuclear medicine studies used for comparison: none Other radiographic comparisons: MRI lumbar spine from 07/20/[address] abdomen pelvis from 02/28/2015 Planar images demonstrate intense increased tracer uptake projecting the L2 vertebral body. SPECT images show increased tracer uptake projecting the right posterior aspect of the L2 vertebral body. Additional CT findings: There is sclerosis corresponding to the area of increased uptake. Multilevel degenerative disc disease are noted. IMPRESSION: Focal increased uptake projecting the right posterior aspect of L2 vertebral body, Given increasing of PSA, this is suspicious for metastatic disease. Dictated by: Garcia Gallagher M.D. The radiology attending physician has personally reviewed this study, and had reviewed and/or edited this written report and agrees with it. Electronically signed by: Aby Frederick M.D. [facility] Roe MD [facility] Final Result documented in this encounter Visit Diagnoses Diagnosis Malignant neoplasm of prostate (HCC) Malignant neoplasm of prostate documented in this encounter Administered Medications Inactive Administered Medications - up to 3 most recent administrations Medication Order MAR Action Action Date Dose Rate Site tc-99m medronate (MDP) injection 20 millicurie 20 millicurie, intravenous, Once in imaging, radiopharmaceutical , Starting on Wed08/10/18 at 0836, For 1 dose, Indications: Diagnostic RadiographyIndicati ons:Diagnostic Radiography Given 08/10/2018 8:35 AM CDT 20.76 millicuries Right Antecubital documented in this encounter Care Teams Rim Fire Priming Tool Setter Relationship Specialty Start Date End Date Kraig Ching MD [address] [facility] [address] [place] [address] PCP - General 07/10/16 documented as of this encounter
--- OUTSIDE RECORDS SUMMARY | 2024-03-31 05:03 | XMS_ITS | Encounter Summary ---
Author Organization [facility] Healthcare Address [address] [place] [address] Care Team Providers Care Director Ship Name Role Phone Kraig Ching MD Primary Care Provider [phone] Encounter Details Date Type Department Care Team (Late st Contact Info) Description 08/15/2018 10:50 AM CDT Lab [facility] Advanced Medicine 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 Gender Identity Not on file Sexual Orientation Not on file documented as of this encounter Discharge Disposition Disposition Code Departure Means Destination Discharge to home or self care documented in this encounter Plan of Treatment Not on file documented as of this encounter Procedures Procedure Name Priority Date/Time Associated Diagnosis Comments DIFFERENTIAL AUTO Routine 08/15/2018 10: 55 AM CDT Stage 3 chronic kidney disease (CMS/HCC) CBC WITH AUTO DIFFERENTIAL Routine 08/15/2018 10:55 AM CDT Stage 3 chronic kidney disease (CMS/HCC) RENAL FUNCTION PANEL Routine 08/15/2018 10:55 AM CDT Stage 3 chronic kidney disease (CMS/HCC) documented in this encounter Results * (ABNORMAL) Differential, auto (08/15/2018 10:55 AM CDT) Neutrophil abs 6.9(H) 1.7 - 6.5 K/cumm [facility] Imm gran abs 0.1 0.0 - 0.1 K/cumm [facility] Lymphocyte abs 1.8 0.8 - 3.3 K/cumm [facility] Monocyte abs 1.0(H) 0.2 - 0.8 K/cumm [facility] Eosinophil abs 0.2 0.0 - 0.5 K/cumm [facility] Basophil abs 0.0 0.0 - 0.1 K/cumm [facility] Neutrophil pct 68.9 % [facility] Comment: Interpretive Data Percent cell count reference ranges are not reported, since discordance with absolute values may lead to misinterpretation of CBC data. Current Interpretive Data was last revised on 2017. Imm gran pct 0.6 % [facility] Comment: Interpretive Data Percent cell count reference ranges are not reported, since discordance with absolute values may lead to misinterpretation of CBC data. Current Interpretive Data was last revised on 2017. Lymphocyte pct 17.9 % [facility] Comment: Interpretive Data Percent cell count reference ranges are not reported, since discordance with absolute values may lead to misinterpretation of CBC data. Current Interpretive Data was last revised on 2017. Monocyte pct 9.8 % [facility] Comment: Interpretive Data Percent cell count reference ranges are not reported, since discordance with absolute values may lead to misinterpretation of CBC data. Current Interpretive Data was last revised on 2017. Eosinophil pct 2.4 % [facility] Comment: Interpretive Data Percent cell count reference ranges are not reported, since discordance with absolute values may lead to misinterpretation of CBC data. Current Interpretive Data was last revised on 2017. Basophil pct 0.4 % [facility] Comment: Interpretive Data Percent cell count reference ranges are not reported, since discordance with absolute values may lead to misinterpretation of CBC data. Current Interpretive Data was last revised on 2017. Blood specimen (specimen) 08/15/2018 10:55 AM CDT 08/15/2018 11:14 AM CDT Narrative [facility] - 08/15/2018 11:45 AM CDT Jameldelicia Hannah Gomez DO LAB BLOOD ORDERABLES Casi l Result [facility] [place] [address] * (ABNORMAL) Renal function panel (08/15/2018 10:55 AM CDT) Sodium 139 135 - 145 mmol/L [facility] Potassium, pl 4.6 3.3 - 4.9 mmol/L [facility] Chloride 103 97 - 110 mmol/L [facility] CO2 25 22 - 32 mmol/L [facility] Anion gap 11 2 - 15 mmol/L [facility] BUN 28(H) 8 - 25 mg/dL [facility] Creatinine 1.47(H) 0.80 - 1.30 mg/dL [facility] Glucose 180 70 - 199 mg/dL [facility] Comment: Interpretive Data Fasting glucose >/= [...] 2017. Calcium 9.6 8.5 - 10.3 mg/dL [facility] Phosphorus, pl 3.3 2.3 - 4.5 mg/dL [facility] Albumin 4.3 3.5 - 5.0 g/dL [facility] Blood specimen (specimen) 08/15/2018 10:55 AM CDT 08/15/2018 11:14 AM CDT Narrative [facility] - 08/15/2018 12:06 PM CDT [facility] LAB BLOOD ORDERABLES Casi l Result Performing Organization Address [facility] Co de Phone Number [facility] Department [place] [address] * (ABNORMAL) CBC with auto differential (08/15/2018 10:55 AM CDT) [facility] WBC 10.0(H) 3.8 - 9.9 K/cumm [facility] Hgb 12.3(L) 13.0 - 17.5 g/dL [facility] Hct 37.6(L) 38.9 - 50.3 % [facility] Plt 390 150 - 400 K/cumm [facility] MPV 9.6 9.1 - 12.3 fL [facility] RBC 4.57 4.30 - 5.80 M/cumm [facility] MCV 82.3 81.3 - 96.4 fL [facility] MCH 26.9(L) 27.1 - 33.3 pg [facility] MCHC 32.7 32.3 - 35.7 g/dL [facility] RDW CV 14.2 11.1 - 14.9 % [facility] RDW SD 41.6 35.7 - 48.1 fL [facility] NRBC abs 0.00 0.00 - 0.01 K/cumm [facility] Blood specimen (specimen) 08/15/2018 10:55 AM CDT 08/15/2018 11:14 AM CDT Narrative [facility] - 08/15/2018 11:45 AM CDT [facility] BLOOD ORDERABLES Casi l Result Performing Organization Address [facility]/ZIP Co de Phone Number [facility] Department [place] [address] documented in this encounter Visit Diagnoses Diagnosis Stage 3 chronic kidney disease (HCC) documented in this encounter Care Teams Director Ship Relationship Specialty Start Date End Date Kraig Ching MD [address] [facility] [address] [place] [address] PCP - General 07/10/16 documented as of this encounter
--- OUTSIDE RECORDS SUMMARY | 2024-03-31 05:03 | XMS_ITS | Encounter Summary ---
Author Organization [facility] Address [address] [place] [address] Care Team Providers Care Product Safety Specialist Name Role Phone Kraig Ching MD Primary Care Provider [phone] Reason for Referral * Diagnostic Imaging (Routine) - Closed Specialty Diagnoses / Procedures Referred By Saleem narvaez Referred To Contact Radiology Diagnoses Malignant neoplasm of prostate (HCC) Procedures MRI Pelvis Prostate W WO Contrast Tramaine Roe MD Phone: tel: fax: [address] [phone] Referral ID Status Reason Start Date Expiration Date Visits Re quested Visits Authorized [id number] Closed 07/19/2018 01/28/2020 1 1 Reason for Visit * Diagnostic Imaging (Routine) - Closed Specialty Diagnoses / Procedures Referred By Saleem narvaez Referred To Contact Radiology Diagnoses Malignant neoplasm of prostate (HCC) Procedures MRI Pelvis Prostate W WO Contrast Tramaine Roe MD Phone: tel: fax: [address] [phone] Referral ID Status Reason Start Date Expiration Date Visits Re quested Visits Authorized [id number] Closed 07/19/2018 01/28/2020 1 1 Encounter Details Date Type Department Care Team (Latest Contact Info) Description 08/10/2018 6:04 AM CDT - 08/10/2018 7:39 AM CDT Hospital Encounter [facility] Radiology [address] [place], [place] [address] [address] Tramaine Roe MD [address] [place] [address] Malignant neoplasm of prostate (CMS/HCC) Discharge Disposition: [...] on file 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 Gender Identity Not on file Sexual [...] Procedure Name Priority Date/Time Associated Diagnosis Comments MRI PELVIS PROSTATE W WO CONTRAST Schedule Routine, Read Routine (OP Routine) 08/10/2018 7:44 AM CDT Malignant neoplasm of prostate (CMS/HCC) documented in this encounter Results * MRI Pelvis Prostate W WO Contrast (08/10/2018 7:44 AM CDT) Anatomical Region Laterality Modality Body N/A Magnetic Resonan ce 08/10/2018 1:35 PM CDT Impressions 08/10/2018 3:14 PM CDT Postoperative changes of prostatectomy with subtle focus of enhancement at the vesicourethral anastomosis, which may represent recurrent disease in the postsurgical bed. Dictated by: Brett Conner M.D. The radiology attending physician has personally reviewed this study, and had reviewed and/or edited this written report and agrees with it. Electronically signed by: Juancho Fried M.D. Narrative 08/10/2018 3:14 PM CDT EXAMINATION: MAGNETIC RESONANCE IMAGING OF THE PELVIS WITHOUT AND WITH CONTRAST HISTORY: 77-year-old male with prostate cancer status post prostatectomy and radiation 20 years ago now with PSA recurrence. Most recent PSA 11.5 m/mL (07/19/2018). TECHNIQUE: MR imaging of the prostate gland was performed with a torso phased array coil at 3T prior to and following administration of intravenous gadolinium. Protocol: Prostate 3T Creatinine: 1.36 mg/dL Estimated GFR: 48.4 ml/min/1.73 meters squared Contrast: Dotarem 18 mL COMPARISON: No prior magnetic resonance imaging is available for comparison. FINDINGS: Prostate is surgically absent. There is a subtle focus of enhancement at the vesicourethral anastomosis (series 30 image 16). No enlarged lymph nodes are identified. No suspicious osseous lesions are identified. Other findings: Urinary bladder is unremarkable. There is an incompletely evaluated penile prosthesis in place with a reservoir in the left hemipelvis. There is a fat-containing left inguinal hernia. Marrow signal intensity within the visualized osseous structures is normal. There is severe L5-S1 degenerative disc disease. Abdominal aorta is normal in course and caliber. No bowel wall thickening or dilatation to suggest obstruction. There is colonic diverticulosis without evidence of diverticulitis. Procedure Note Juancho Fried MD - 08/10/2018 EXAMINATION: MAGNETIC RESONANCE IMAGING OF THE PELVIS WITHOUT AND WITH CONTRAST HISTORY: 77-year-old male with prostate cancer status post prostatectomy and radiation 20 years ago now with PSA recurrence. Most recent PSA 11.5 m/mL (07/19/2018). TECHNIQUE: MR imaging of the prostate gland was performed with a torso phased array coil at 3T prior to and following administration of intravenous gadolinium. Protocol: Prostate 3T Creatinine: 1.36 mg/dL Estimated GFR: 48.4 ml/min/1.73 meters squared Contrast: Dotarem 18 mL COMPARISON: No prior magnetic resonance imaging is available for comparison. FINDINGS: Prostate is surgically absent. There is a subtle focus of enhancement at the vesicourethral anastomosis (series 30 image 16). No enlarged lymph nodes are identified. No suspicious osseous lesions are identified. Other findings: Urinary bladder is unremarkable. There is an incompletely evaluated penile prosthesis in place with a reservoir in the left hemipelvis. There is a fat-containing left inguinal hernia. Marrow signal intensity within the visualized osseous structures is normal. There is severe L5-S1 degenerative disc disease. Abdominal aorta is normal in course and caliber. No bowel wall thickening or dilatation to suggest obstruction. There is colonic diverticulosis without evidence of diverticulitis. IMPRESSION: Postoperative changes of prostatectomy with subtle focus of enhancement at the vesicourethral anastomosis, which may represent recurrent disease in the postsurgical bed. Dictated by: Brett Conner M.D. The radiology attending physician has personally reviewed this study, and had reviewed and/or edited this written report and agrees with it. Electronically signed by: Juancho Fried M.D. Tramaine Roe MD IM MRI PROCEDURES Final Result documented in this encounter Visit Diagnoses Diagnosis Malignant neoplasm of prostate (HCC) Malignant neoplasm of prostate documented in this encounter Administered Medications Inactive Administered Medications - up to 3 most recent administrations Medication Order MAR Action Action Date Dose Rate Site gadoterate meglumine (DOTAREM) 0.5 mmol/mL injection 20 mL 20 mL, intravenous, Once in imaging, contrast, Starting on Wed08/10/18 at 0728, For 1 dose Given 08/10/2018 7:58 AM CDT 18 mL documented in this encounter Care Teams Product Safety Specialist Relationship Specialty Start Date End Date Kraig Ching MD [address] [address] PCP - General 07/10/16 documented as of this encounter
--- OUTSIDE RECORDS SUMMARY | 2024-03-31 05:03 | XMS_ITS | Encounter Summary ---
Author Organization [facility] Healthcare Address [address] [place] [address] Care Team Providers Care [employer] Name Role Phone Kraig Ching MD Primary Care Provider [phone] Reason for Referral * Diagnostic Imaging (Routine) - Closed Specialty Diagnoses / Procedures Referred By Saleem narvaez Referred To Contact Diagnoses Sciatica of left side Procedures XR Spine Lumbar Complete 4 Or More Kraig Ching MD Phone: tel: fax: [address] [phone] Referral ID Status Reason Start Date Expiration Date Visits Re quested Visits Authorized [id number] Closed 07/15/2018 01/24/2020 1 1 Reason for Visit * Diagnostic Imaging (Routine) - Closed Specialty Diagnoses / Procedures Referred By Saleem narvaez Referred To Contact Diagnoses Sciatica of left side Procedures XR Spine Lumbar Complete 4 Or More Kraig Ching MD Phone: tel: fax: [address] [phone] Referral ID Status Reason Start Date Expiration Date Visits Re quested Visits Authorized [id number] Closed 07/15/2018 01/24/2020 1 1 Encounter Details Date Type Department Care Team (Latest Contact Info) Description 07/15/2018 3:49 PM CDT - 07/15/2018 11:59 PM CDT Hospital Encounter [facility] [address] [place] [address] Kraig Ching MD [address] [facility] [address] [place] [address] Sciatica of left side Discharge Disposition: Discharge to home [...] on file 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 ??Moderate diffuse lumbar degenerative disc disease with grade 1 anterolisthesis of L4 on L5. Electronically signed by: Catalina Oquendo M.D. Narrative 07/15/2018 4:17 PM CDT EXAMINATION: Lumbar spine minimum 4 views HISTORY: ??Lumbar spondylosis FINDINGS: AP, lateral, bilateral oblique views of the lumbar spine are performed with comparison the lumbar spine radiographs on 02/11/2010. ?? There is grade 1 anterolisthesis of L4 on L5. ??The vertebral body heights are normal. ??There is moderate diffuse lumbar degenerative disc disease. 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 There is atherosclerosis of the abdominal aorta. Procedure Note Catalina Oquendo MD - 07/15/2018 EXAMINATION: Lumbar spine minimum 4 views HISTORY: Lumbar spondylosis FINDINGS: AP, lateral, bilateral oblique views of the lumbar spine are performed with comparison the lumbar spine radiographs on 02/11/2010. There is grade 1 anterolisthesis of L4 on L5. The vertebral body heights are normal. There is moderate diffuse lumbar degenerative disc disease. 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 There is atherosclerosis of the abdominal aorta. IMPRESSION: 1. Moderate diffuse lumbar degenerative disc disease with grade 1 anterolisthesis of L4 on L5. Electronically signed by: Catalina Oquendo M.D. Kraig Ching MD IMG XR PROCEDURES Final Resul t documented in this encounter Visit Diagnoses Diagnosis Sciatica of left side documented in this encounter Care Teams [employer] Relationship Specialty Start Date End Date Kraig Ching MD [address] [address] PCP - General 07/10/16 documented as of this encounter
--- OUTSIDE RECORDS SUMMARY | 2024-03-31 05:03 | XMS_ITS | Encounter Summary ---
Author Organization [facility] Address [address] [place] [address] Phone Care Team Providers Care Commercial Appraiser Name Role Phone Kraig Ching MD Primary Care Provider [phone] Encounter Details Date Type Department Care Team (Late st Contact Info) Description 03/23/2018 Orders Only [facility] Cardiology [address] 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 Gender Identity Not on file Sexual Orientation Not on file documented as of this encounter Plan of Treatment Scheduled Orders Name Type Priority Associated Diagnoses Orde r Schedule Beta 2 microglobulin, serum Lab Routine Amyloidosis, unspecified type (CMS/HCC) Expected: 03/30/2018, Expires: 03/23/2019 CBC with auto differential Lab Routine Amyloidosis, unspecified type (CMS/HCC) Expected: 03/30/2018, Expires: 03/23/2019 Comprehensive metabolic panel Lab Routine Amyloidosis, unspecified type (CMS/HCC) Expected: 03/30/2018, Expires: 03/23/2019 Immunoglobulin free light chains Lab Routine Amyloidosis, unspecified type (CMS/HCC) Expected: 03/30/2018, Expires: 03/23/2019 Lactate dehydrogenase (LD) Lab Routine Amyloidosis, unspecified type (CMS/HCC) Expected: 03/30/2018, Expires: 03/23/2019 Pro B-type natriuretic peptide Lab Routine Amyloidosis, unspecified type (CMS/HCC) Expected: 03/30/2018, Expires: 03/23/2019 Protein, total Lab Routine Amyloidosis, unspecified type (CMS/HCC) Expected: 03/30/2018, Expires: 03/23/2019 Protein Electrophoresis, With Reflex, Serum Lab Routine Amyloidosis, unspecified type (CMS/HCC) Expected: 03/30/2018, Expires: 03/23/2019 Protime-INR Lab Routine Amyloidosis, unspecified type (CMS/HCC) Expected: 03/30/2018, Expires: 03/23/2019 aPTT Lab Routine Amyloidosis, unspecified type (CMS/HCC) Expected: 03/23/2018, Expires: 03/23/2019 Troponin T Lab Routine Amyloidosis, unspecified type (CMS/HCC) Expected: 03/23/2018, Expires: 03/23/2019 Uric acid Lab Routine Amyloidosis, unspecified type (CMS/HCC) Expected: 03/23/2018, Expires: 03/23/2019 documented as of this encounter Visit Diagnoses Diagnosis Amyloidosis, unspecified type (HCC)- Primary documented in this encounter Care Teams Commercial Appraiser Relationship Specialty Start Date End Date Kraig Ching MD [address] [place] [address] PCP - General 07/10/16 documented as of this encounter
--- OUTSIDE RECORDS SUMMARY | 2024-03-31 05:03 | XMS_ITS | Encounter Summary ---
Author Organization [facility] Address [address] [place] [address] Phone Care Team Providers Care Practice Director Name Role Phone Kraig Ching MD Primary Care Provider [phone] Encounter Details Date Type Department Care Team (Late st Contact Info) Description 02/18/2018 Orders Only [facility] Scheduling [address] [place] [address] Bella Mann CMA Social History Tobacco Use Types Packs/Day Years Used Date Smoking Tobacco: Former Smokeless Tobacco: Never Comments:Smoking History Pac ks/day: 10 Cigarettes Alcohol Use Standard Drinks/Week Comments No 0 (1 standard drink = 0.6 oz pur e alcohol) quit 09/2017 Sex and Gender Information Value Date Recorded Sex Assigned at Not on file 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 TRAVATAN Z 0.004 % drops INT 1 DROP INTO OU QHS 5 12/28/2017 11/17/2022 added in this encounter Care Teams Practice Director Relationship Specialty Start Date End Date Kraig Ching MD [address] [facility] [address] [place], [place] [id number] PCP - General 07/10/16 documented as of this encounter
--- OUTSIDE RECORDS SUMMARY | 2024-03-31 05:03 | XMS_ITS | Encounter Summary ---
Author Organization [facility] Healthcare Address [address] [place] [address] Care Team Providers Care Senior Php Web Developer Name Role Phone Kraig Ching MD Primary Care Provider [phone] Encounter Details Date Type Department Care Team (Late st Contact Info) Description 03/07/2018 1:30 PM MAIL WEIGHER Lab [address] [address] Social History Tobacco Use Types Packs/Day Years Used Date Smoking Tobacco: Former Smokeless Tobacco: Former Comments:Smoking History Pac ks/day: 10 Cigarettes Alcohol Use Standard Drinks/Week Comments No 0 (1 standard drink = 0.6 oz pur e alcohol) quit 09/2017 Sex and Gender Information Value Date Recorded Sex Assigned at Not on file Legal Sex Male 4:46 PM MAIL WEIGHER Gender Identity Not on file Sexual Orientation Not on file documented as of this encounter Plan of Treatment Not on file documented as of this encounter Procedures Procedure Name Priority Date/Time Associated Diagnosis Comments RENAL FUNCTION PANEL Routine 03/07/2018 11:19 AM MAIL WEIGHER documented in this encounter Results * (ABNORMAL) Renal function panel (03/07/2018 11:19 AM MAIL WEIGHER) Sodium 140 135 - 145 mmol/L [facility] Potassium, pl 4.0 3.3 - 4.9 mmol/L [facility] Chloride 104 97 - 110 mmol/L [facility] CO2 27 22 - 32 mmol/L [facility] Anion gap 9 2 - 15 mmol/L [facility] BUN 31(H) 8 - 25 mg/dL [facility] Creatinine 1.54(H) 0.80 - 1.30 mg/dL [facility] Glucose 140 70 - 199 mg/dL [facility] Comment: Interpretive Data Fasting glucose >/= [...] 2017. Calcium 9.4 8.5 - 10.3 mg/dL [facility] Phosphorus, pl 3.1 2.3 - 4.5 mg/dL [facility] Albumin 4.8 3.5 - 5.0 g/dL [facility] Blood specimen (specimen) 03/07/2018 11:19 AM MAIL WEIGHER 03/07/2018 1:30 PM MAIL WEIGHER Narrative [facility] - 03/07/2018 2:25 PM MAIL WEIGHER Medicine LAB BLOOD ORDERABLES Final Resul t [facility] [place] [address] documented in this encounter Visit Diagnoses Not on filedocumented in this encounter Care Teams Senior Php Web Developer Relationship Specialty Start Date End Date Kraig Ching MD [address] [facility] [address] [place] [address] PCP - General 07/10/16 documented as of this encounter
--- OUTSIDE RECORDS SUMMARY | 2024-03-31 05:03 | XMS_ITS | Encounter Summary ---
Author Organization [facility] Healthcare Address [address] [place] [address] Care Team Providers Care Certified Nursing Assistant Name Role Phone Kraig Ching MD Primary Care Provider [phone] Encounter Details Date Type Department Care Team (Late st Contact Info) Description 11/30/[address] 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
--- OUTSIDE RECORDS SUMMARY | 2024-03-31 05:03 | XMS_ITS | Encounter Summary ---
Author Organization [facility] Healthcare Address [address] [place] [address] Care Team Providers Care Talent Advisor Name Role Phone Kraig Ching MD Primary Care Provider [phone] Encounter Details Date Type Department Care Team (Late st Contact Info) Description 12/16/2017 4:02 PM CDT Anesthesia Event [facility] [address] [facility] [address] [place] [address] Blanquita Garcia MD [address] [place] [address] Bryan Toledo CRNA [address] [place] [address] Anesthesia Record Procedure Summary Procedure Name Responsible Anesthesiologist Anesthesia Start Time Anesthesia Stop Time Esophagogastroduodenoscopy O PEN ACCESS (Left) Blanquita Garcia MD 12/16/17 1602 12/16/17 1636 Events Date Time Event Comment 12/16/2017 1546 1600 In Room 1602 An Start 1602 An Start Data 1602 An Data Art 1607 Start Supplemental O2 1614 Patient Positioned Laterally 1614 An Induction The patient was reevaluated immediately before moderate or deep sedation use and before anesthesia induction. 1615 Bite Block Placed 1616 Proc Start 1616 Anesthesia Ready 1618 Proc Fin 1630 an stop data 1631 Out of Room 1635 Handoff to RN I completed my handoff [...] disposition at the time of handoff: PACU 1636 An Stop 1656 Release from care Meds Name Total propofol 200 mg glycopyrrolate 0.2 mg lidocaine (cardiac) syringe 2 % 50 mg sodium chloride 0.9% infusion 450 mL * Agents Name O2% N2O O2 N2O Air Sevoflurane Inspired Sevoflurane * Blood No blood administrations on file. Lines, Drains, and Airways Type Details Placement Removal Peripheral IV Placement Date: 09/27; Placement Time: 151; Catheter Size: 22 G; Orientation: Right; Location: Forearm; Site Prep: Chlorhexidine; Technique: Anatomical landmarks; Inserted by: Nat Rodríguez RN; Insertion Attempts: 1; Patient Tolerance: Tolerated well; Removal Date: 12/16/17; Removal Time: 17112/16/17 1510 by Chante Schwartz RN 12/16/17 1711 by Bibi Abdalla documented in this encounter Social History Tobacco Use Types Packs/Day Years Used Date Smoking Tobacco: Heavy Smoker Smokeless Tobacco: Never Comments:Smoking History Pac ks/day: 10 Cigarettes Alcohol Use Standard Drinks/Week Comments No 0 (1 standard drink = 0.6 oz pur e alcohol) quit 09/2017 Sex and Gender Information Value Date Recorded Sex Assigned at Not on file 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 Gender Identity Not on file Sexual Orientation Not on file documented as of this encounter OR Notes * Anesthesia Postprocedure Evaluation - Blanquita Garcia MD - 12/16/2017 4:56 PM CDT Patient: David Wei Procedure Summary Date: 12/16/17 Room / Location: [facility]OM [facility] / [facility] Anesthesia Start: 1602 Anesthesia Stop: 1635 Procedure: Esophagogastroduodenoscopy OPEN ACCESS (Left ) Diagnosis: DU (duodenal ulcer) (DU (duodenal ulcer) [K26.9]) Provider: Anthony Wilson MD Responsible Provider: Blanquita Garcia MD Anesthesia Type: MAC ASA Status: 3 Anesthesia Type: MAC Last vitals BP 168/67 Pulse 75 Temp 36.3 ??C (97.3 ??F) (Temporal) Resp 16 SpO2 99% Anesthesia Post Evaluation Patient location during evaluation: PACU Patient participation: complete - patient participated Level of consciousness: fully awake Pain score: 0 Pain management: adequate Airway patency: adequate Evidence of recall: no Anesthetic complications: no Cardiovascular status: acceptable Respiratory status: acceptable Hydration status: acceptable Pt is: normothermic Nausea/Vomiting status: none * Anesthesia Preprocedure Evaluation - Blanquita Garcia MD - 12/16/2017 3:42 PM CDT Anesthesia Evaluation David Wei is a 77 y.o. male Procedure(s): Esophagogastroduodenoscopy OPEN ACCESS Patient Active Problem List Diagnosis ??? Hypertension [...] (CMS/HCC) ??? Stage 3 chronic kidney disease ??? 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 Duodenal ulcer Past Medical History: Diagnosis Date ??? A-fib [...] surgery wuth Pancreatic abcess/pancreatitis ??? PROSTATECTOMY 1999 No Known Allergies HOME MEDICATIONS : diltiaZEM (CARDIZEM) 120 mg tablet lisinopril (PRINIVIL,ZESTRIL) 10 mg tablet metFORMIN (GLUCOPHAGE) 500 mg tablet ONETOUCH ULTRA BLUE TEST STRIP strip pantoprazole DR (PROTONIX) 40 mg EC tablet pravastatin (PRAVACHOL) 20 mg tablet SITagliptin (JANUVIA) 25 mg tablet levalbuterol (XOPENEX HFA) 45 mcg/actuation inhaler Current Facility-Administered Medications: ??? sodium chloride 0.9% infusion, 30 mL/hr, intravenous, Continuous, Last Rate: 30 mL/hr at 12/16/17 1524, 30 mL/hr at 12/16/17 1524 Social History Smoking Status ??? Heavy Tobacco Smoker Smokeless Tobacco ??? Never Used Comment: Smoking History Packs/day: 10 Cigarettes Alcohol Use No Comment: quit 09/2017 Drug Use No Family History Problem Relation Age of Onset ??? Diabetes type II Other Diabetes mellitus type 2; ??? Hypertension Other Hypertension; ??? Kidney failure Mother ??? Dementia Father PAT Physical Exam Vitals: 12/16/17 1507 Pulse: 77 PT: No results found for requested labs within last 720 hours. INR: No results found for requested labs within last 720 hours. APTT: No results found for requested labs within last 720 hours. Hgb A1C: 11/25/2017: 6.4 %* CBC RBC: 11/25/2017: 4.11 M/cumm* RDW: No results found for requested labs within last 720 hours. MCHC: 11/25/2017: 31.1 g/dL* MCH: 11/25/2017: 27.0 pg* MCV: 11/25/2017: 86.9 fL Hct: 11/25/2017: 35.7 %* Hgb: 11/25/2017: 11.1 g/dL* WBC: 11/25/2017: 9.4 K/cumm MPV: 11/25/2017: 9.5 fL Platelets: 11/25/2017: 421 K/cumm* RDW CV: 11/25/2017: 15.5 %* RDW Sd: 11/25/2017: 49.3 fL* BMP Glucose: 12/16/2017: 102 mg/dL Calcium: 11/25/2017: 9.4 mg/dL Sodium: 11/25/2017: 142 mmol/L Potassium: 11/25/2017: 4.3 mmol/L CO2: 11/25/2017: 26 mmol/L Chloride: 11/25/2017: 104 mmol/L BUN: 11/25/2017: 28 mg/dL* Creatinine: 11/25/2017: 1.50 mg/dL* DOS Physical Exam Medical history, medications, and allergies reviewed. Attestation: With today's edits, I endorse the the findings of the H&P dated: 12/16/2017. Airway Exam: Mallampati: II Cervical ROM: FROM Cardiovascular Exam: Rate: regular Rhythm: regular Pulmonary Exam: LCTA, bilat Dental Exam: Appears intact Current state: Patient's current state is cooperative. Anesthesia Plan ASA 3 My patient is approved for the Anesthesia Controlled Medication protocol when under care of a ETHYLENE COMPRESSOR OPERATOR Planned anesthesia: MAC Induction: Induction: intravenous. Informed Consent: Anesthesia plan and risks discussed with patient. Consent and Attending signature: I and/or my designee have discussed the anesthesia plan, benefits, possible alternatives, parental presence at time of induction (if indicated), and clinically relevant risks that may include dental injury, unintentional awareness, and/or other complications. The patient and/or parent/legal guardian understand, and agree to proceed. All questions answered. documented in this encounter Plan of Treatment Not on file documented as of this encounter Visit Diagnoses Not on filedocumented in this encounter Administered Medications Inactive Administered Medications - up to 3 most recent administrations Medication Order MAR Action Action Date Dose Rate Site glycopyrrolate (ROBINUL) injection intravenous, As needed, Starting on Marisabel 12/16/17 at 1603, Anesthesia Intra-op Given 12/16/2017 4:03 PM CDT 0.2 mg lidocaine (cardiac) (XYLOCAINE) preservative free injection As needed, Starting on Marisabel 12/16/17 at 1614, Anesthesia Intra-op, Indications: Ventricular ArrhythmiasIndications:Ventricular Arrhythmias Given 12/16/2017 4:14 PM CDT 50 mg propofol (DIPRIVAN) IV intravenous, As needed, Starting on Marisabel 12/16/17 at 1614, Anesthesia Intra-op Given 12/16/2017 4:17 PM CDT 100 mg Given 12/16/2017 4:14 PM CDT 100 mg sodium chloride 0.9% infusion 30 mL/hr, intravenous, Continuous, Starting on Marisaebl 12/16/17 at 1515 New Bag 12/16/2017 4:02 PM CDT New Bag 12/16/2017 3:24 PM CDT 30 mL/hr 30 mL/hr documented in this encounter Care Teams Talent Advisor Relationship Specialty Start Date End Date Kraig Ching MD [address] [address] PCP - General 07/10/16 documented as of this encounter
--- OUTSIDE RECORDS SUMMARY | 2024-03-31 05:03 | XMS_ITS | Encounter Summary ---
Author Organization [facility] Address [address] [place] [address] Phone Care Team Providers Care Electrical Cad Designer Name Role Phone Kraig Ching MD Primary Care Provider [phone] Reason for Referral * Diagnostic Imaging (Routine) - Closed Specialty Diagnoses / Procedures Referred By Saleem narvaez Referred To Contact Radiology Diagnoses Malignant neoplasm of prostate (HCC) Procedures MRI Pelvis Prostate W WO Contrast Tramaine Roe MD Phone: tel: fax: [address] [address] Referral ID Status Reason Start Date Expiration Date Visits Re quested Visits Authorized [id number] Closed 07/19/2018 01/28/2020 1 1 Reason for Visit * Reason Comments Elevated PSA * Consultation (Routine) - Closed Specialty Diagnoses / Procedures Referred By Saleem narvaez Referred To Contact Urology Diagnoses Elevated PSA Kraig Ching MD Phone: tel: fax: Tramaine Roe MD Phone: tel: fax: Referral ID Status Reason Start Date Expiration Date V isits Requested Visits Authorized [id number] Closed Specialty Services Required 07/08/2018 01/17/2020 99 99 Encounter Details Date Type Department Care Team (Late st Contact Info) Description 07/19/2018 12:40 PM CDT Office Visit Advanced Medicine ([facility] - [facility] Urology [address] [facility] Advanced Medicine 11th [place] [address] [place] [address] Tramaine Roe MD [address] [place] [address] Malignant neoplasm of prostate (CMS/HCC) (Primary Dx); Elevated PSA Social History Tobacco Use Types Packs/Day Years Used Date Smoking Tobacco: Former Smokeless Tobacco: Former Comments:Smoking History Pac ks/day: 10 Cigarettes Alcohol Use Standard Drinks/Week Comments No 0 (1 standard drink = 0.6 oz pur e alcohol) quit 09/2017 Sex and Gender Information Value Date Recorded Sex Assigned at Not on file 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 Let's get a PSA today (blood work) on the 3rd floor outpatient lab 2. Let's plan for a bone scan and prostate MRI in the next 3-6 weeks documented in this encounter Progress Notes * Tramaine Roe MD - 07/19/2018 12:40 PM CDT Chief Complaint: prostate cancer History of Present Illness: David Wei is a 77 y.o. male w/ history of prostate cancer - Location: prostate - Quality: asymptomatic - Duration: diagnosed and underwent prostatectomy in 1990 - Modifying factors: required salvage radiation 1-2 years following prostatectomy, and now with history of recurrent gross hematuria - Associated signs/symptoms: hematuria and LUTS - Saw Dr. 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 Objective Physical Examination: Constitutional: no acute distress Skin/Integumentary: no bruising or rashes on face or hands, scalp atraumatic Eyes: Extraocular muscles intact, mucous membranes moist, sclera white, conjunctiva pink Ears, Nose, Mouth/Throat: neck normal range of motion and trachea midline, no bleeding gums or nose Respiratory: No coarse breath sounds or wheezing, breathing symmetric Gastrointestinal: Soft, non-tender, non-distended, no hernia, no masses Genitourinary: No CVA tenderness Psychiatric: Mood and affect appropriate, alert and oriented to person, place and time, good historian Neurologic: Normal gait, speech clear, tongue midline, normal hand strength Lab/Radiology/Diagnostic Review: Renal US 11/2017 - simple cysts of the kidneys I have reviewed and independently examined the US images. My findings are given above with the associated imaging tests. Assessment/Plan It was a pleasure seeing David Wei in clinic today. David Wei is a 77 y.o. male w/ history of prostate cancer - Discussed recurrent disease / biochemical recurrence - Discussed given RRP and salvage XRT, no role for local therapy - Discussed treatment would be driven by metastatic disease burden - Plan for MRI and bone scan, followed by medical oncology referral - If non-metastatic, unclear role for upfront ADT vs delayed ADT - If metastatic, upfront ADT would be standard of care, +/- abiraterone or chemotherapy Thank you for allowing us to participate in the care of this patient. Please do not hesitate to contact us should you have any questions or concerns at [phone]. documented in this encounter Plan of Treatment Not on file documented as of this encounter Results * MRI Pelvis Prostate [...] by: Juancho Fried M.D. Tramaine Roe MD IMG MRI PROCEDURES Final Result * (ABNORMAL) PSA diagnostic (07/19/2018 1:43 PM CDT) PSA-Total 11.54(H) <=6.20 ng/mL [facility] Comment: Interpretive Data ?AGE ? SEX ?REFERENCE INTERVAL 0 minutes-150 years ?Female ?None 0 minutes-49 years ? Male ?None ? 50-59 years ? Male ?0-3.90 ? 60-69 years ? Male ?0-5.40 ? 70-79 years ? Male ?0-6.20 ? 80-150 years ?Male ?0-6.20 Current interpretive data last revised 2017. Blood specimen (specimen) 07/19/2018 1:43 PM CDT 07/19/2018 2:13 PM CDT Narrative [facility] - 07/19/2018 3:03 PM CDT us Tramaine Roe MD LAB BLOOD ORDERABLES Final Resu lt [facility] [place] [address] documented in this encounter Visit Diagnoses Diagnosis Malignant neoplasm of prostate (HCC)- Primary Malignant neoplasm of prostate Elevated PSA Elevated prostate specific antigen (PSA) Malignant neoplasm of prostate (HCC) Malignant neoplasm of prostate Malignant neoplasm of prostate (HCC) Malignant neoplasm of prostate documented in this encounter Orders Outpatient Referral Count Last Ordered Date Fir st Ordered Date AMB REFERRAL TO UROLOGY 1 07/19/2018 documented in this encounter Care Teams Electrical Cad Designer Relationship Specialty Start Date End Date Kraig Ching MD [id number] [place] [address] PCP - General 07/10/16 documented as of this encounter
--- OUTSIDE RECORDS SUMMARY | 2024-03-31 05:03 | XMS_ITS | Encounter Summary ---
Author Organization [facility] Healthcare Address [address] [place] [address] Care Team Providers Care Clinical Informaticist Name Role Phone Mike Lerner MD Primary Care Provider [phone] Encounter Details Date Type Department Care Team (Late st Contact Info) Description 11/30/2017 Telephone [facility] [address] [id number] Rosy Ruvalcaba RN Social History Tobacco Use Types Packs/Day Years Used Date Smoking Tobacco: Heavy Smoker Smokeless Tobacco: Never Comments:Smoking History Pac ks/day: 10 Cigarettes Alcohol Use Standard Drinks/Week Comments Yes 0 (1 standard drink = 0.6 oz pur e alcohol) Sex and Gender Information Value Date Recorded Sex Assigned at Not on file 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 * Pre-Procedure Instructions - Kadi Castillo RN - 12/02/2017 10:04 AM CDT EGD instructions mailed to pt. NPO solid foods after midnight 12/15/17 may have clear liquids only until 11:30am. * Telephone Encounter - Rosy Ruvalcaba RN - 11/30/2017 8:10 AM CDT MIKE LERNER MD ORDERED EGD FOR DUODENAL ULCER K26.9. NO MEMORY ON VM TO LEAVE A MESSAGE. NEEDS MAC/NO ELIN. documented in this encounter Plan of Treatment Not on file documented as of this encounter Visit Diagnoses Not on filedocumented in this encounter Care Teams Clinical Informaticist Relationship Specialty Start Date End Date Mike Lerner MD [address] [address] PCP - General 07/10/16 documented as of this encounter
--- OUTSIDE RECORDS SUMMARY | 2024-03-31 05:03 | XMS_ITS | Encounter Summary ---
Author Organization [facility] Medical Group Address [address] [facility] [address] [place] [address] Care Team Providers Care Tree Fruit And Nut Crops Farmer Name Role Phone Kraig Ching MD Primary Care Provider [phone] Reason for Visit * Reason Onset Date Comments Dr Ching - Medical Question 08/02/2018 Encounter Details Date Type Department Care Team (Late st Contact Info) Description 08/02/2018 Telephone [facility] [address] [facility] [address] [place] [address] Kraig Chnig MD [address] [facility] [address] [place], [place] [id number] Dr Ching - Medical Question Social History Tobacco Use Types Packs/Day Years Used Date Smoking Tobacco: Former Smokeless Tobacco: Former Comments:Smoking History Pac ks/day: 10 Cigarettes Alcohol Use Standard Drinks/Week Comments No 0 (1 standard drink = 0.6 oz pur e alcohol) quit 09/2017 Sex and Gender Information Value Date Recorded Sex Assigned at Not on file 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 * Telephone Encounter - Natasha Rodriguez - 08/02/2018 11:41 AM CDT [facility] is asking if Dr Ching can sign orders for patient to haver diabetic and insulin training. 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 She states the form is a requirement of the [employer]abetic Association. She say the form is for diabetic self management training. She states she is faxing the order to [phone]. Please advise documented in this encounter Plan of Treatment Not on file documented as of this encounter Visit Diagnoses Not on filedocumented in this encounter Care Teams Tree Fruit And Nut Crops Farmer Relationship Specialty Start Date End Date Kraig Ching MD [address] [address] PCP - General 07/10/16 documented as of this encounter
--- OUTSIDE RECORDS SUMMARY | 2024-03-31 05:03 | XMS_ITS | Encounter Summary ---
Author Organization [facility] Healthcare Address [address] [place] [address] Care Team Providers Care Mixing Machine Operator Name Role Phone Kraig Ching MD Primary Care Provider [phone] Encounter Details Date Type Department Care Team (Late st Contact Info) Description 07/15/2018 10:10 PM CDT Lab [address] [address] Social History Tobacco Use Types Packs/Day Years Used Date Smoking Tobacco: Former Smokeless Tobacco: Former Comments:Smoking History Pac ks/day: 10 Cigarettes Alcohol Use Standard Drinks/Week Comments No 0 (1 standard drink = 0.6 oz pur e alcohol) quit 09/2017 Sex and Gender Information Value Date Recorded Sex Assigned at Not on file 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
--- OUTSIDE RECORDS SUMMARY | 2024-03-31 05:03 | XMS_ITS | Encounter Summary ---
Author Organization [facility] Medical Group Address [address] [facility] [address] [place] [address] Care Team Providers Care Community Health Promoter Name Role Phone Kraig Ching MD Primary Care Provider [phone] Encounter Details Date Type Department Care Team (Late st Contact Info) Description 05/06/2018 Orders Only [facility] [address] [facility] [address] [place] [phone] Kraig Ching MD [address] [facility] [address] [place], [place] [id number] Social History Tobacco Use Types Packs/Day Years Used Date Smoking Tobacco: Former Smokeless Tobacco: Former Comments:Smoking History Pac ks/day: 10 Cigarettes Alcohol Use Standard Drinks/Week Comments No 0 (1 standard drink = 0.6 oz pur e alcohol) quit 09/2017 Sex and Gender Information Value Date Recorded Sex Assigned at Not on file 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 21 tablet/capsule 05/06/2018 05/13/2018 documented in this encounter Plan of Treatment Not on file documented as of this encounter Visit Diagnoses Not on filedocumented in this encounter Care Teams Community Health Promoter Relationship Specialty Start Date End Date Kraig Ching MD [address] [facility] [address] [place], [place] [id number] PCP - General 07/10/16 documented as of this encounter
--- OUTSIDE RECORDS SUMMARY | 2024-03-31 05:03 | XMS_ITS | Encounter Summary ---
Author Organization [facility] Address [address] [place] [address] Phone Care Team Providers Care Park Guide Name Role Phone Kraig Ching MD Primary Care Provider [phone] Reason for Visit * Renal Disease (Routine) - Closed Specialty Diagnoses / Procedures Referred By Contac t Referred To Contact Nephrology Diagnoses 3 month Procedures RETURN Kraig Ching MD Phone: tel: fax: [facility] [address] [facility] [address] [place] [address] [place] [address] Phone: tel: fax: Referral ID Status Reason Start Date Expiration Date Visits Re quested Visits Authorized [id number] Closed 02/23/2018 09/04/2019 99 99 Encounter Details Date Type Department Care Team (Latest Contact Info) Description 02/23/2018 10:00 AM SEAM PRESSER Office Visit [facility] 5th [place] [address] [place] [address] 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) (Primary Dx); Stage 3 chronic kidney disease (CMS/HCC); Essential hypertension; Renal osteodystrophy Social History Tobacco Use Types Packs/Day Years Used Date Smoking Tobacco: Former Smokeless Tobacco: Never Comments:Smoking History Pac ks/day: 10 Cigarettes Alcohol Use Standard Drinks/Week Comments No 0 (1 standard drink = 0.6 oz pur e alcohol) quit 09/2017 Sex and Gender Information Value Date Recorded Sex Assigned at Not on file Legal Sex Male 4:46 PM SEAM PRESSER Gender Identity Not on file Sexual Orientation Not on file documented as of this encounter Last Filed Vital Signs Vital Sign Reading Time Taken Comments Blood Pressure 155/77 02/23/2018 10:46 AM SEAM PRESSER Pulse 74 02/23/2018 10:08 AM SEAM PRESSER Temperature 36.8 ??C (98.2 ??F) 02/23/2018 1 0:08 AM SEAM PRESSER Respiratory Rate - - Oxygen Saturation - - Inhaled Oxygen Concentration - - Weight 96.5 kg (212 lb 12.8 oz) 018 10:08 AM SEAM PRESSER Height 180.3 cm (5' 11 ) 02/23/2018 10: 08 AM SEAM PRESSER Body Mass Index 29.68 02/23/2018 10:08 AM SEAM PRESSER documented in this encounter Patient Instructions * Patient Instructions* Estrellita Gomez MD - 02/23/2018 10:00 AM SEAM PRESSER Please take lisinopril 40 mg daily (we will call this in for you) Please get labs done in 2 weeks Please follow up in 6 months with labs Please follow a low salt diet PRESSER documented in this encounter Ordered Prescriptions Prescription Sig Dispense Quantity Refills Last Filled Start Date End Date lisinopril (PRINIVIL,ZESTRIL) 40 mg tablet Take 1 tablet (40 mg total) by mouth daily. 90 tablet 11 02/23/2018 07/12/2018 documented in this encounter Progress Notes * Estrellita Gomez MD - 02/23/2018 10:00 AM CST NEPHROLOGY SUBSEQUENT OFFICE VISIT NOTE NAME: DAVID DREW DATE OF : 1940 DATE OF VISIT: 02/23/2018 REASON FOR OFFICE VISIT: Follow up for CKD stage 3 PROBLEM LIST: 1. CKD stage 3 likely secondary to diabetes mellitus and hypertension 2. COPD 3. Paroxysmal Atrial Fibrillation, Xarelto on hold 4. Type II diabetes mellitus, not on insulin, last A1C 7.3 in 08/2017 5. Essential Hypertension 6. Dyslipidemia 7. Pancreatitis in 1999 8. Duodenal Ulcer, EGD 10/2017 9. Prostate Cancer in 1999, [id number], status post radical prostatectomy with subsequent external beam radiation therapy INTERVAL HISTORY: Mr. Drew is a 77 year old male with a history of stage 3 chronic kidney disease likely secondary to diabetes and hypertension who is here for a follow up visit. He was initially seen in our clinic in November 2017. In the interim, he denies any major illnesses, hospitalizationsor ED visits. He reports that his blood pressures have been poorly controlled and persistently above 140 mmHg systolic at home. He denies any chest pain, shortness of breath, headaches, blurred vision or dizziness. He denies edema or urinary symptoms. He is otherwise well and reports compliance with all of his medications as they are prescribed. His appetite has been good. REVIEW OF SYSTEMS: All other systems are negative. MEDICATIONS: ??? diltiaZEM (CARDIZEM) 120 mg tablet TAKE 1 TABLET(120 MG) BY MOUTH DAILY ??? levalbuterol (XOPENEX HFA) 45 mcg/actuation inhaler Inhale 1-2 puffs every 6 (six) hours as needed for wheezing. ??? lisinopril (PRINIVIL,ZESTRIL) 20 mg tablet Take 1 tablet (20 mg total) by mouth daily. ??? metFORMIN (GLUCOPHAGE) 500 mg tablet Take [...] 1 DROP INTO OU QHS PHYSICAL EXAM GEN: A very pleasant male in no apparent distress BP (!) 173/74, repeat BP 155/77 Pulse 74 Temp 36.8 ??C (98.2 ??F) Ht 180.3 cm (5' 11 ) Wt 96.5 kg (212 lb 12.8 oz) BMI 29.68 kg/m?? HENT: Mucus membranes pink and moist. Oropharynx clear. EYES: Sclerae anicteric CVS: S1 S2 normal, no murmurs, rub or gallop. No LE edema. LUNGS: clear to auscultation bilaterally ABD: Soft, non-tender, non-distended, bowel sounds normal. No masses. SKIN: No rash PLASTERER APPRENTICE: Alert and oriented x3. No focal motor deficits PSYCH: Pleasant, cooperative, in no apparent distress. MSK: No joint swelling or tenderness LABORATORY DATA Sodium Date Value Ref Range Status 11/25/2017 142 135 - 145 mmol/L Final 10/22/2017 135 135 - 145 mmol/L Final 08/30/2017 138 135 - 145 mmol/L Final Potassium, pl Date Value Ref Range Status 11/25/2017 4.3 3.3 - 4.9 mmol/L Final 10/22/2017 4.5 3.3 - 4.9 mmol/L Final 08/30/2017 4.5 3.3 - 4.9 mmol/L Final CO2 Date Value Ref Range Status 11/25/2017 26 22 - 32 mmol/L Final 10/22/2017 28 22 - 32 mmol/L Final CO2 Content Date Value Ref Range Status 01/24/2018 26 21 - 29 mmol/L Final BUN Date Value Ref Range Status 11/25/2017 28 (H) 8 - 25 mg/dL Final 10/22/2017 24 8 - 25 mg/dL Final 08/30/2017 24 8 - 25 mg/dL Final Creatinine Date Value Ref Range Status 01/24/2018 1.41 (H) 0.70 - 1.30 mg/dL Final 11/25/2017 1.50 (H) 0.80 - 1.30 mg/dL Final 10/22/2017 1.81 (H) 0.80 - 1.30 mg/dL Final Albumin Date Value Ref Range Status 11/25/2017 4.2 3.5 - 5.0 g/dL Final 08/30/2017 4.4 3.5 - 5.0 g/dL Final 01/15/2017 4.5 3.5 - 5.0 g/dL Final Calcium Date Value Ref Range Status 01/24/2018 9.4 8.6 - 10.3 mg/dL Final 11/25/2017 9.4 8.5 - 10.3 mg/dL Final 10/22/2017 9.7 8.5 - 10.3 mg/dL Final PTH, intact Date Value Ref Range Status 11/22/2017 32 15 - 65 pg/mL Final Hgb Date Value Ref Range Status 11/25/2017 11.1 (L) 13.0 - 17.5 g/dL Final 08/30/2017 13.0 13.0 - 17.5 g/dL Final 01/15/2017 13.5 13.0 - 17.5 g/dL Final LABORATORY DATA: DATE Na K CO2 BUN SCr Alb Ca Phos PTH Vit D Hb Iron TSAT Ferritin 10/22/2017 135 4.5 28 24 1.81 ?? 9.7 ? 08/30/2017 138 4.5 27 24 1.66 4.4 9.5 ? 13.0 ? 01/15/2017 140 4.2 27 26 1.57 4.5 9.2 ? 13.5 ? 07/22/2016 141 4.0 25 19 1.34 4.7 9.6 ? 13.1 ? 09/23/2015 138 3.9 24 28 1.31 4.6 9.7 ? 12.5 ? 02/25/2015 140 4.0 25 22 1.16 4.7 10 ? 12.9 ? 07/12/2013 ? 1.19 ? 03/14/2013 ? 1.17 ? Renal ultrasound from 11/2017: The echogenicity of both kidneys is normal. The kidneys are normal in size but have decreased in size since the prior examination. The right kidney measures 12.4 cm in length (previously 13.2 cm), and the left, 11.8 cm in length (previously 13.3 cm). There is no hydronephrosis in either kidney. No renal calculi are visualized. There is a 2.4 x 2.8 x 3.0 cm simple cyst in the mid to inferior right kidney and a 2.4 x 2.1 x 2.8 cm simple cyst in the left mid zone. The urinary bladder is normal. ?? ASSESSMENT AND PLAN: 1. Chronic kidney disease, stage 3: Mr. Kelly's renal function is relatively stable with serum creatinine in his baseline range. At this time, we will continue to monitor his renal function and manage blood pressure as below. 2. Hypertension: His blood pressure is poorly controlled. Today, we will increase his lisinopril to40 mg daily and have discussed a low salt diet. We will repeat labs in 2 weeks to follow up on serum creatinine and potassium after increasing lisinopril. 3. Anemia of CKD: While his hemoglobin remains at goal for his level of CKD, we did note that he has a 2 gram drop since his last CBC (hemoglobin 13--> 11). He has no symptoms to suggest any GI bleeding at this time so we will continue to monitor his hemoglobin for now. 4. Secondary hyperparathyroidism: His most recent calcium and iPTH are within normal limits. We will continue to monitor. DISPOSITION: The patient will return follow up in 6 months with labs. Estrellita Gomez DO Renal Fellow, PGY-5 Cosigned by Lin Guerrero MD at 03/05/2018 4:20 PM SEAM PRESSER PRESSER Associated attestation - Lin Guerrero MD - 03/05/2018 4:20 PM SEAM PRESSER I have seen and examined the patient on 02/23/2018. I agree with the findings and plan of care as documented in the renal fellow's note. Lin Guerrero MD documented in this encounter Miscellaneous Notes * Addendum Note - Adelaida Deshpande CLT - 02/23/2018 10:00 AM CSTAddended by: ADELAIDA DESHPANDE on: 03/07/2018 11:39 AM Modules accepted: Orders PRESSER * Addendum Note - Flower Georges - 02/23/2018 10:00 AM CSTAddended by: FLOWER GEORGES on: 08/12/2018 10:28 AM Modules accepted: Orders documented in this encounter Plan of Treatment Not on file documented as of this encounter Procedures Procedure Name Priority Date/Time Associated Diagnosis Comments POCT URINALYSIS DIPSTICK Routine 02/23/2018 10:22 AM SEAM PRESSER Stage 3 chronic kidney disease (CMS/HCC) documented in this encounter Results * (ABNORMAL) CBC with auto differential (08/15/2018 10:55 AM CDT) WBC 10.0(H) 3.8 - 9.9 K/cumm [facility] Hgb 12.3(L) 13.0 - 17.5 g/dL [facility] Hct 37.6(L) 38.9 - 50.3 % [facility] Plt 390 150 - 400 K/cumm [facility] MPV 9.6 9.1 - 12.3 fL [facility] RBC 4.57 4.30 - 5.80 M/cumm [facility] MCV 82.3 81.3 - 96.4 fL [facility] MCH 26.9(L) 27.1 - 33.3 pg [facility] MCHC 32.7 32.3 - 35.7 g/dL [facility] RDW CV 14.2 11.1 - 14.9 % [facility] RDW SD 41.6 35.7 - 48.1 fL [facility] NRBC abs 0.00 0.00 - 0.01 K/cumm [facility] Blood specimen (specimen) 08/15/2018 10:55 AM CDT 08/15/2018 11:14 AM CDT Narrative [facility] - 08/15/2018 11:45 AM CDT us Estrellita Gomez DO LAB BLOOD ORDERABLES Casi gretta Result [facility] [place] [address] * (ABNORMAL) Renal function panel (08/15/2018 10:55 AM CDT) Sodium 139 135 - 145 mmol/L [facility] Potassium, pl 4.6 3.3 - 4.9 mmol/L [facility] Chloride 103 97 - 110 mmol/L [facility] CO2 25 22 - 32 mmol/L [facility] Anion gap 11 2 - 15 mmol/L [facility] BUN 28(H) 8 - 25 mg/dL [facility] Creatinine 1.47(H) 0.80 - 1.30 mg/dL [facility] Glucose 180 70 - 199 mg/dL [facility] Comment: Interpretive Data Fasting glucose [...] 2017. Calcium 9.6 8.5 - 10.3 mg/dL [facility] Phosphorus, pl 3.3 2.3 - 4.5 mg/dL [facility] Albumin 4.3 3.5 - 5.0 g/dL [facility] Blood specimen (specimen) 08/15/2018 10:55 AM CDT 08/15/2018 11:14 AM CDT Narrative [facility] - 08/15/2018 12:06 PM T us Estrellita Gomez DO LAB BLOOD ORDERABLES Casi l Result [facility] Department [place] [address] * (ABNORMAL) POCT urinalysis dipstick (02/23/2018 10:22 AM SEAM PRESSER) Pathologist [facility] Glucose, ur, POC 100.(A) Negative mg/dL Bilirubin, ur, POC Negative Negative Ketones, ur, POC Negative Negative Specific [place], POC 1.005 1.005 - 1.030 Blood, ur, POC 1+(A) Negative pH, ur, POC 6.0 5.0 - 8.0 Protein, ur, POC Negative Negative Urobilinogen, urine, POC 0.2 0.2 - 1.0 mg/dL Nitrite, ur, POC Negative Negative Leukocytes, ur, POC Negative Negative Lot Number [id number] Urine 02/23/2018 10:2 2 AM SEAM PRESSER Lin Guerrero MD POINT OF CARE TEST ORDERABLES Fi nal Result documented in this encounter Visit Diagnoses Diagnosis Anemia in stage 3 chronic kidney disease (HCC)- Primary Stage 3 chronic kidney disease (HCC) Essential hypertension Unspecified essential hypertension Renal osteodystrophy Stage 3 chronic kidney disease (HCC) documented in this encounter Discontinued Medications Medication Sig Discontinue Reason Start Date End Da te lisinopril (PRINIVIL,ZESTRIL) 20 mg tabletIndications:Essenti al hypertension Take 1 tablet (20 mg total) by mouth daily. 01/24/2018 02/23/2018 documented as of this encounter Orders Lab Orders Without Results Count Last Ordered D ate First Ordered Date RENAL FUNCTION PANEL 1 03/07/2018 documented in this encounter Care Teams Park Guide Relationship Specialty Start Date End Date Kraig Ching MD [address] [address] PCP - General 07/10/16 documented as of this encounter
--- OUTSIDE RECORDS SUMMARY | 2024-03-31 05:03 | XMS_ITS | Encounter Summary ---
Author Organization [facility] Healthcare Address [address] [place] [address] Care Team Providers Care Kaiawhina Name Role Phone Kraig Ching MD Primary Care Provider [phone] Encounter Details Date Type Department Care Team (Late st Contact Info) Description 11/25/2017 2:30 PM CDT Lab [address] [address] Social History Tobacco Use Types Packs/Day Years Used Date Smoking Tobacco: Heavy Smoker Smokeless Tobacco: Never Comments:Smoking History Pac ks/day: 10 Cigarettes Alcohol Use Standard Drinks/Week Comments Yes 0 (1 standard drink = 0.6 oz pur e alcohol) Sex and Gender Information Value Date Recorded Sex Assigned at Not on file 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
--- OUTSIDE RECORDS SUMMARY | 2024-03-31 05:03 | XMS_ITS | Encounter Summary ---
Author Organization [facility] Medical Group Address [address] [facility] [address] [place] [address] Care Team Providers Care Bag Sewer Name Role Phone Kraig Ching MD Primary Care Provider [phone] Encounter Details Date Type Department Care Team (Late st Contact Info) Description 08/02/2018 Telephone [facility] [address] [facility] [address] [place] [id number] Kraig Ching MD [address] [facility] [address] [place], [place] [id number] Social History Tobacco Use Types Packs/Day Years Used Date Smoking Tobacco: Former Smokeless Tobacco: Former Comments:Smoking History Pac ks/day: 10 Cigarettes Alcohol Use Standard Drinks/Week Comments No 0 (1 standard drink = 0.6 oz pur e alcohol) quit 09/2017 Sex and Gender Information Value Date Recorded Sex Assigned at Not on file 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 No need to call. * Telephone Encounter - Vivi Ureña - 08/02/2018 3:00 PM CDT Kadi from [facility] call to get order clarification: on Insulin training to properly educcate pt of Diabetes self training. Kadi can be reached at [phone] documented in this encounter Plan of Treatment Not on file documented as of this encounter Visit Diagnoses Not on filedocumented in this encounter Care Teams Bag Sewer Relationship Specialty Start Date End Date Kraig Ching MD [address] [address] PCP - General 07/10/16 documented as of this encounter
--- OUTSIDE RECORDS SUMMARY | 2024-03-31 05:03 | XMS_ITS | Encounter Summary ---
Author Organization [facility] Address [address] [place] [address] Care Team Providers Care Yarn Conditioner Name Role Phone Mike Lerner MD Primary Care Provider [phone] Encounter Details Date Type Department Care Team (Late st Contact Info) Description 03/07/2018 11:00 AM MORTGAGE PROFESSIONAL Office Visit [facility] [address] [place] [address] Mike Lerner MD [address] [place], [place] [id number] Type 2 diabetes mellitus with stage 3 chronic kidney disease, without long-term current use of insulin (CMS/HCC) (Primary Dx); Hypertensive kidney disease with chronic kidney disease stage III (CMS/HCC); Stage 3 chronic kidney disease (CMS/HCC); PAF (paroxysmal atrial fibrillation) (CMS/HCC); Chronic diastolic heart failure (CMS/HCC); Hyperlipidemia associated with type 2 diabetes mellitus ([facility]/HCC); Encounter for screening; Therapeutic drug monitoring Social History Tobacco Use Types Packs/Day Years Used Date Smoking Tobacco: Former Smokeless Tobacco: Former Comments:Smoking History Pac ks/day: 10 Cigarettes Alcohol Use Standard Drinks/Week Comments No 0 (1 standard drink = 0.6 oz pur e alcohol) quit 09/2017 Sex and Gender Information Value Date Recorded Sex Assigned at Not on file Legal Sex Male 4:46 PM MORTGAGE PROFESSIONAL Gender Identity Not on file Sexual Orientation Not on file documented as of this encounter Last Filed Vital Signs Vital Sign Reading Time Taken Comments Blood Pressure 132/74 03/07/2018 10:35 AM MORTGAGE PROFESSIONAL Pulse 85 03/07/2018 10:35 AM MORTGAGE PROFESSIONAL Temperature 36.7 ??C (98 ??F) 03/07/2018 10:35 AM MORTGAGE PROFESSIONAL Respiratory Rate - - Oxygen Saturation 94% 03/07/2018 10:35 AM MORTGAGE PROFESSIONAL Inhaled Oxygen Concentration - - Weight 95.3 kg (210 lb) 03/07/2018 10:35 AM MORTGAGE PROFESSIONAL Height 180.3 cm (5' 11 ) 03/07/2018 10:35 AM MORTGAGE PROFESSIONAL Body Mass Index 29.29 03/07/2018 10:35 AM MORTGAGE PROFESSIONAL documented in this encounter Ordered Prescriptions Prescription Sig Dispense Quantity Refills Last Filled Start Date End Date aspirin 81 mg tablet Take 1 tablet (81 mg total) by mouth daily. 30 tablet 11 03/07/2018 11/17/2022 documented in this encounter Progress Notes * Mike Lerner MD - 03/07/2018 11:00 AM CST Subjective/Objective Patient ID: David Wei is a 77 y.o. male. Chief Complaint Diabetes HPI 1.D.M. He reports compliacne with medications. Diabetes is compicated by CKD. He follows with Nephrology. A recent creatinine was improved at 1.41. Diabetes is complicated by hyperlipidemia. He is prescribed pravastatin. 2.HTN. His lisinopril was increased by his St[employer]. 3.Diastolic heart failure. He has been evaluated by Cardiology. He reports a low sodium diet. 4.Atrial Fibrillation. He is prescribed Diltiazem. He is prescribed aspirin. Review of Systems Constitutional: Negative. HENT: Negative for sore throat. Eyes: Negative for visual disturbance. Respiratory: Negative for shortness of breath. Cardiovascular: Negative for chest pain and palpitations. Gastrointestinal: Negative for abdominal pain. Genitourinary: Negative for hematuria. Musculoskeletal: Positive for arthralgias. Negative for neck pain. Skin: Negative for rash. Neurological: Negative for dizziness and headaches. BP 132/74 (BP Location: Left arm, Patient Position: Sitting) Pulse 85 Temp 36.7 ??C (98 ??F) (Oral) Ht 180.3 cm (5' 11 ) Wt 95.3 kg (210 lb) SpO2 94% BMI 29.29 kg/m?? Physical Exam Constitutional: He appears well-developed. HENT: Head: Normocephalic. Eyes: Pupils are equal, round, and reactive to light. Cardiovascular: Normal rate and regular rhythm. Pulmonary/Chest: Effort normal and breath sounds normal. Musculoskeletal: Normal range of motion. Feet: Right Foot: Monofilament exam normal. Protective Sensation: 2 sites tested. 2 sites sensed. Skin Integrity: Positive for callus. Left Foot: Monofilament exam normal. Protective Sensation: 2 sites tested. 2 sites sensed. Skin Integrity: Positive for callus. Neurological: He is alert. Skin: Skin is warm. Assessment/Plan Diagnoses and all orders for this visit: Type 2 diabetes mellitus with stage 3 chronic kidney disease, without long-term current use of insulin ([facility]) (E11.22, N18.3) (Primary) Assessment & Plan: Continue current regimen. Advised annual eye exam.Limit nephrotoxins. Monitor creatinine. Avoid NSAIDS. Orders: - Hemoglobin A1c; Future - Microalbumin / creatinine ratio, urine, random; Future Hypertensive kidney disease with chronic kidney disease stage III ([facility]) (I12.9, N18.3) Assessment & Plan: Hypertension is controlled. Continue current regimen. Limit nephrotoxins. Monitor creatinine. AvoidNSAIDS. Stage 3 chronic kidney disease ([facility]) (N18.3) Assessment & Plan: Limit nephrotoxins. Monitor creatinine. Avoid NSAIDS. Orders: - Basic metabolic panel (Outreach); Future PAF (paroxysmal atrial fibrillation) ([facility]) (I48.0) Assessment & Plan: Continue rate control. Continue anticoagualtion. Anticipate starting Eliquis after cleared by G.I. Chronic diastolic heart failure ([facility]) (I50.32) Assessment & Plan: Hypertension is controlled. Continue current regimen. CHF compensated. Continue current regimen. Reviewed low sodium diet. Hyperlipidemia associated with type 2 diabetes mellitus ([facility]) (E11.69, E78.5) Assessment & Plan: Continue pravastatin. He had myalgias on other statins. Orders: - Lipid panel; Future Encounter for screening (Z13.9) Therapeutic drug monitoring (Z51.81) - CBC without differential; Future Other orders - aspirin 81 mg tablet; Take 1 tablet (81 mg total) by mouth daily. GAGE PROFESSIONAL GAGE PROFESSIONAL documented in this encounter Miscellaneous Notes * Addendum Note - Mike Lerner MD - 03/07/2018 11:00 AM CSTAddended by: MIKE LERNER on: 03/07/2018 11:07 AM Modules accepted: Orders GAGE PROFESSIONAL * Assessment & Plan Note - Mike Lerner MD - 03/07/2018 6:56 AM MORTGAGE PROFESSIONAL Associated Problem(s): Hyperlipidemia associated with type 2 diabetes mellitus (HCC) Continue pravastatin. He had myalgias on other statins. GAGE PROFESSIONAL * Assessment & Plan Note - Mike Lerner MD - 03/07/2018 6:55 AM MORTGAGE PROFESSIONAL Associated Problem(s): Type 2 diabetes mellitus without complication, with long-term current use ofinsulin (CMS/HCC) (HCC) (Resolved 10/02/2023) Continue current regimen. Advised annual eye exam.Limit nephrotoxins. Monitor creatinine. Avoid NSAIDS. GAGE PROFESSIONAL * Assessment & Plan Note - Mike Lerner MD - 03/07/2018 6:55 AM MORTGAGE PROFESSIONAL Associated Problem(s): Chronic kidney disease, stage 3b (HCC) Limit nephrotoxins. Monitor creatinine. Avoid NSAIDS. GAGE PROFESSIONAL * Assessment & Plan Note - Mike Lerner MD - 03/07/2018 6:55 AM MORTGAGE PROFESSIONAL Associated Problem(s): Hypertensive kidney disease with chronic kidney disease stage III (HCC) Hypertension is controlled. Continue current regimen. Limit nephrotoxins. Monitor creatinine. AvoidNSAIDS. GAGE PROFESSIONAL * Assessment & Plan Note - Mike Lerner MD - 03/07/2018 6:54 AM MORTGAGE PROFESSIONAL Associated Problem(s): PAF (paroxysmal atrial fibrillation) (CMS/HCC) (HCC) Continue rate control. Continue anticoagualtion. Anticipate starting Eliquis after cleared by Juice. GAGE PROFESSIONAL * Assessment & Plan Note - Mike Lerner MD - 03/07/2018 6:53 AM MORTGAGE PROFESSIONAL Associated Problem(s): Chronic diastolic heart failure (HCC) Hypertension is controlled. Continue current regimen. CHF compensated. Continue current regimen. Reviewed low sodium diet. GAGE PROFESSIONAL documented in this encounter Plan of Treatment Not on file documented as of this encounter Results * (ABNORMAL) CBC without differential (03/07/2018 11:19 AM MORTGAGE PROFESSIONAL) WBC 10.4(H) 3.8 - 9.9 K/cumm [facility] Hgb 12.5(L) 13.0 - 17.5 g/dL [facility] Hct 39.4 38.9 - 50.3 % [facility] Plt 429(H) 150 - 400 K/cumm [facility] MPV 9.8 9.1 - 12.3 fL [facility] RBC 4.85 4.30 - 5.80 M/cumm [facility] MCV 81.2(L) 81.3 - 96.4 fL [facility] MCH 25.8(L) 27.1 - 33.3 pg [facility] MCHC 31.7(L) 32.3 - 35.7 g/dL [facility] RDW CV 14.9 11.1 - 14.9 % [facility] RDW SD 43.6 35.7 - 48.1 fL [facility] NRBC abs 0.00 0.00 - 0.01 K/cumm [facility] Blood specimen (specimen) 03/07/2018 11:19 AM MORTGAGE PROFESSIONAL 03/07/2018 1:29 PM MORTGAGE PROFESSIONAL Narrative [facility] - 03/07/2018 1:45 PM MORTGAGE PROFESSIONAL us Mike Lerner MD LAB BLOOD ORDERABLES Final Re sult [facility] [place] [address] * (ABNORMAL) Lipid panel (03/07/2018 11:19 AM MORTGAGE PROFESSIONAL) Cholesterol 257(H) 30 - 199 mg/dL [facility] Comment: [...] Data was last revised on 2017. Triglycerides 291(H) <=149 mg/dL [facility] Comment: Interpretive Data Ages < [...] Data was last revised on 2017. HDL 37(L) >=40 mg/dL [facility] Comment: Interpretive Data Ages < or = [...] was last revised on 2017. LDL, calculated 162(H) <=129 mg/dL [facility] Comment: Interpretive Data Ages < or = [...] was last revised on 2017. Non-HDL Cholesterol 220 mg/dL [facility] Comment: Interpretive Data Ages < or = [...] was last revised on 2017. Chol/HDL ratio 7 [facility] Blood specimen (specimen) 03/07/2018 11:19 AM MORTGAGE PROFESSIONAL 03/07/2018 1:30 PM MORTGAGE PROFESSIONAL Narrative [facility] - 03/07/2018 2:17 PM MORTGAGE PROFESSIONAL Mike Lerner MD LAB BLOOD ORDERABLES Final Re sult Performing Organization Address [facility] de Phone Number [facility] Department [place] [address] * (ABNORMAL) Hemoglobin A1c (03/07/2018 11:19 AM MORTGAGE PROFESSIONAL) Hgb A1C 8.5(H) 4.0 - 5.6 % [facility] Estimated Average Glucose 197 mg/dL [facility] Comment: The ADA recommends reporting an estimated Average Glucose (eAG) with all Hemoglobin A1c results using the equation derived from a study of 507 normal and diabetic adults. ??Minority populations were underrepresented and children were not included. ?? (Diabetes Care 31:9930-3742, 2008). ??The eAG is not equivalent to a fasting glucose. Blood specimen (specimen) 03/07/2018 11:19 AM MORTGAGE PROFESSIONAL 03/07/2018 1:29 PM MORTGAGE PROFESSIONAL Narrative [facility] - 03/07/2018 2:10 PM MORTGAGE PROFESSIONAL Mike Lerner MD LAB BLOOD ORDERABLES Final Re sult Performing Organization Address [facility] Co de Phone Number [facility] [place] [address] * (ABNORMAL) Microalbumin / creatinine ratio, urine, random (03/07/2018 11:17 AM MORTGAGE PROFESSIONAL) Microalbumin, ur 73.8 mcg/mL [facility] Creatinine, ur 58.30 mg/dL [facility] Microalbumin/c reat ratio 126.6(H) 0.1 - 29.9 mcg/mg Cr [facility] Urine 03/07/2018 11:1 7 AM MORTGAGE PROFESSIONAL 03/07/2018 1:49 PM MORTGAGE PROFESSIONAL Narrative [facility] - 03/07/2018 2:32 PM MORTGAGE PROFESSIONAL Mike Lerner MD LAB URINE ORDERABLES Final Re sult [facility] [place] [address] documented in this encounter Visit Diagnoses Diagnosis Type 2 diabetes mellitus with stage 3 chronic kidney disease, without long-term current use of insulin (HCC)- Primary Hypertensive kidney disease with chronic kidney disease stage III (HCC) Unspecified hypertensive kidney disease with chronic kidney disease stage I through stage IV, or unspecified Stage 3 chronic kidney disease (HCC) PAF (paroxysmal atrial fibrillation) (CMS/HCC) (HCC) Atrial fibrillation Chronic diastolic heart failure (HCC) Chronic diastolic heart failure Hyperlipidemia associated with type 2 diabetes mellitus (HCC) Encounter for screening Therapeutic drug monitoring Encounter for therapeutic drug monitoring documented in this encounter Care Teams Yarn Conditioner Relationship Specialty Start Date End Date Mike Lerner MD [address] [place] [address] PCP - General 07/10/16 documented as of this encounter
--- OUTSIDE RECORDS SUMMARY | 2024-03-31 05:03 | XMS_ITS | Encounter Summary ---
Author Organization [facility] Address [address] [place] [address] Care Team Providers Care Studio Control Operator Name Role Phone Kraig Ching MD Primary Care Provider [phone] Encounter Details Date Type Department Care Team (Late st Contact Info) Description 11/26/2017 Orders Only [facility] [address] [place] [id number] Kraig Ching MD [address] [place], [place] [id number] Social History Tobacco Use Types Packs/Day Years [...] Refills Last Filled Start Date End Date pravastatin (PRAVACHOL) 20 mg tablet Take 1 tablet (20 mg total) by mouth daily. 30 tablet 11 11/26/2017 11/11/2018 documented in this encounter Plan of Treatment Not on file documented as of this encounter Visit Diagnoses Not on filedocumented in this encounter Care Teams Studio Control Operator Relationship Specialty Start Date End Date Kraig Ching MD [address] [place], [place] [id number] PCP - General 07/10/16 documented as of this encounter
--- OUTSIDE RECORDS SUMMARY | 2024-03-31 05:03 | XMS_ITS | Encounter Summary ---
Author Organization [facility] Address [address] [place] [address] Phone Care Team Providers Care Pi/Senior Research Associate Name Role Phone Kraig Ching MD Primary Care Provider [phone] Encounter Details Date Type Department Care Team (Late st Contact Info) Description 08/11/2018 Orders Only [facility] - [facility] 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
--- OUTSIDE RECORDS SUMMARY | 2024-03-31 05:03 | XMS_ITS | Encounter Summary ---
Author Organization [facility] Address [address] [place] [address] Care Team Providers Care Community Liaison Name Role Phone Kraig Ching MD Primary Care Provider [phone] Reason for Visit * Reason Onset Date Comments frank - medical question (medication) 12/02/19 18 Encounter Details Date Type Department Care Team (Late st Contact Info) Description 12/01/2017 Telephone [facility] [address] [place] [phone] Kraig Ching MD [address] [address] [place] [address] frank - medical question (medication) Social History Tobacco Use Types Packs/Day Years Used Date Smoking Tobacco: Heavy Smoker Smokeless Tobacco: Never Comments:Smoking History Pac ks/day: 10 Cigarettes Alcohol Use Standard Drinks/Week Comments Yes 0 (1 standard drink = 0.6 oz pur e alcohol) Sex and Gender Information Value Date Recorded Sex Assigned at Not on file 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 Patient would like to know if he should continue taking and if so requesting that a rx be sent to the pharmacy, [facility]. If patient shoulddiscontinue using please let the patient know at [phone] documented in this encounter Plan of Treatment Not on file documented as of this encounter Visit Diagnoses Not on filedocumented in this encounter Care Teams Community Liaison Relationship Specialty Start Date End Date Kraig Ching MD [address] [address] PCP - General 07/10/16 documented as of this encounter
--- OUTSIDE RECORDS SUMMARY | 2024-03-31 05:03 | XMS_ITS | Encounter Summary ---
Author Organization [facility] Address [address] [place] [address] Care Team Providers Care Casing Runner Name Role Phone Kraig Ching MD Primary Care Provider [phone] Reason for Referral * Diagnostic Imaging (Routine) - Closed Specialty Diagnoses / Procedures Referred By Contac t Referred To Contact Radiology Diagnoses Sciatica of left side Procedures MRI Lumbar Spine WO Contrast Kraig Ching MD Phone: tel: fax: [address] [phone] Referral ID Status Reason Start Date Expiration Date Visits Re quested Visits Authorized [id number] Closed 07/15/2018 01/24/2020 1 1 * Diagnostic Imaging (Routine) - Closed Specialty Diagnoses / Procedures Referred By Contac t Referred To Contact Diagnoses Sciatica of left side Procedures XR Spine Lumbar Complete 4 Or More Kraig Ching MD Phone: tel: fax: [address] [phone] Referral ID Status Reason Start Date Expiration Date Visits Re quested Visits Authorized [id number] Closed 07/15/2018 01/24/2020 1 1 Encounter Details Date Type Department Care Team (Late st Contact Info) Description 07/15/2018 3:00 PM CDT Office Visit [facility] [address] [place] [address] Kraig Ching MD [address] [facility] [address] [place] [address] SBO (small bowel obstruction) (CMS/HCC) (Primary Dx); Hypertensive kidney disease with chronic kidney disease stage III (CMS/HCC); Stage 3 chronic kidney disease (CMS/HCC); Type 2 diabetes mellitus with stage 3 chronic kidney disease, without long-term current use of insulin (CMS/HCC); Sciatica of left side; Therapeutic drug monitoring Social History Tobacco Use Types Packs/Day Years Used Date Smoking Tobacco: Former Smokeless Tobacco: Former Comments:Smoking History Pac ks/day: 10 Cigarettes Alcohol Use Standard Drinks/Week Comments No 0 (1 standard drink = 0.6 oz pur e alcohol) quit 09/2017 Sex and Gender Information Value Date Recorded Sex Assigned at Not on file 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 Gender Identity Not on file Sexual Orientation Not on file documented as of this encounter Last Filed Vital Signs Vital Sign Reading Time Taken Comments Blood Pressure 130/70 07/15/2018 2:40 PM CDT Pulse 75 07/15/2018 2:40 PM CDT Temperature 36.7 ??C (98 ??F) 07/15/2018 2:40 PM CDT Respiratory Rate 16 07/15/2018 2:40 PM CDT Oxygen Saturation 98% 07/15/2018 2:40 PM CDT Inhaled Oxygen Concentration - - Weight 97.1 kg (214 lb) 07/15/2018 2:40 PM CDT Height 180.3 cm (5' 11 ) 07/15/2018 2:40 PM CDT Body Mass Index 29.85 07/15/2018 2:40 PM CDT documented in this encounter Progress Notes * Kraig Ching MD - 07/15/2018 3:00 PM CDT Subjective/Objective Patient ID: David Wei is a 77 y.o. male. Chief Complaint Hospital follow-up HPI Hospital follow-up. He was admitted with abdominal pain and diagnosed with SBO. Symptoms improved with NG tube and conservative treatment. . At discharge he resumed medications for Diabetes. Diabetesis complicated by CKD. Blood sugars are over 240.At discharge he resumed his blood pressure medications. Hypertension is complicated bu CKD. He notes increased back pain. Review of Systems Constitutional: Negative. HENT: Negative for sore throat. Eyes: Negative for visual disturbance. Respiratory: Negative for shortness of breath. Cardiovascular: Negative for chest pain. Gastrointestinal: Positive for abdominal pain. Genitourinary: Negative for hematuria. Musculoskeletal: Negative for arthralgias. Skin: Negative for rash. Neurological: Negative for dizziness. BP 130/70 (BP Location: Right arm, Patient Position: Sitting) Pulse 75 Temp 36.7 ??C (98 ??F) (Oral) Resp 16 Ht 180.3 cm (5' 11 ) Wt 97.1 kg (214 lb) SpO2 98% BMI 29.85 kg/m?? Physical Exam Constitutional: He appears well-developed. [...] Diagnoses and all orders for this visit: SBO (small bowel obstruction) ([facility]) (K56.609) (Primary) Assessment & Plan: He improved with conservative treatment. Hypertensive kidney disease with chronic kidney disease stage III ([facility]) (I12.9, N18.3) Assessment & Plan: Hypertension is controlled. Continue current regimen. Limit nephrotoxins. Monitor creatinine. AvoidNSAIDS. Stage 3 chronic kidney disease ([facility]) (N18.3) Assessment & Plan: Limit nephrotoxins. Monitor creatinine. Avoid NSAIDS. Type 2 diabetes mellitus with stage 3 chronic kidney disease, without long-term current use of insulin ([facility]) (E11.22, N18.3) Assessment & Plan: Continue current Diabetic regimen. Advised annual eye exam. Limit nephrotoxins. Monitor creatinine.Avoid NSAIDS. He will monitor sugars for 3 weeks. Start Insulin if morning sugars are over 200. Orders: - Basic metabolic panel (Outreach); Future - Hemoglobin A1c; Future - Ambulatory referral to Diabetic Education; Future Sciatica of left side (M54.32) - XR Spine Lumbar Complete 4 Or More; Future - MRI Lumbar Spine WO Contrast; Future Therapeutic drug monitoring (Z51.81) - CBC with auto differential; Future documented in this encounter Miscellaneous Notes * Assessment & Plan Note - Kraig Ching MD - 07/15/2018 2:51 PM CDT Associated Problem(s): Type 2 diabetes mellitus without complication, with long-term current use ofinsulin ([facility]/H[facility]) ([facility]) (Resolved 10/02/2023) Continue current Diabetic regimen. Advised annual eye exam. Limit nephrotoxins. Monitor creatinine.Avoid NSAIDS. He will monitor sugars for 3 weeks. Start Insulin if morning sugars are over 200. * Assessment & Plan Note - Kraig Ching MD - 07/15/2018 2:51 PM CDT Associated Problem(s): Chronic kidney disease, stage 3b ([facility]) Limit nephrotoxins. Monitor creatinine. Avoid NSAIDS. * Assessment & Plan Note - Kraig Ching MD - 07/15/2018 2:50 PM CDT Associated Problem(s): SBO (small bowel obstruction) (CMS/HCC) ([facility]) He improved with conservative treatment. * Assessment & Plan Note - Kraig Ching MD - 07/15/2018 2:50 PM CDT Associated Problem(s): Hypertensive kidney disease with chronic kidney disease stage III ([facility]) Hypertension is controlled. Continue current regimen. Limit nephrotoxins. Monitor creatinine. AvoidNSAIDS. documented in this encounter Plan of Treatment Not on file documented as of this encounter Results * MRI Lumbar Spine WO Contrast (07/20/2018 12:44 PM CDT) Anatomical Region Laterality Modality Spine N/A Magnetic Resonan ce 07/20/2018 4:22 PM CDT Addenda Addendum by Joseph Infante MD on 08/10/2018 4:04 PM CDT ADDENDUM Addendum issued at 08/10/2018 4:00 PM by Ariane Neely M.D.. Given the patient's history of prostate cancer, and the SPECT bone scan obtained on 08/10/2018, the Modic 3 changes at the level of L2 correspond to the sclerotic metabolically active lesion seen on the bone scan, thus represents a metastatic lesion, and not degenerative changes. ?? Dictated by: Ariane Neely M.D. The radiology attending physician has personally reviewed this study, and had reviewed and/or edited this written report and agrees with it. Electronically signed by: Joseph Infante M.D. Impressions 07/20/2018 8:24 PM CDT 1. ??Moderate to severe degenerative changes as detailed above with severe canal narrowing. Dictated by: Ariane Neely M.D. The radiology attending physician has personally reviewed this study, and had reviewed and/or edited this written report and agrees with it. Electronically signed by: Joseph Infante M.D. Narrative 07/20/2018 8:24 PM CDT EXAMINATION: Magnetic resonance imaging (MRI) of the lumber spine without and with ??contrast. HISTORY: Left side sciatica. TECHNIQUE: Multiplanar multi-weighted MRI of the lumbar spine was performed without and with ??intravenous contrast using the standard lumbar spine protocol. COMPARISON: None available. FINDINGS: There is grade 1 anterolisthesis of L4 on L5. ??There are hemangiomas involving L3 and L4. There is moderate type I changes at L3-L4 and L4-L5. Mixed Modic changes (2 and 3) at L2-L3. Partial fusion of the disc space at L5-S1. 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 Vertebral bodies demonstrate normal signal intensity on all sequences. There are no compression fractures. The conus medullaris terminates at the level of the T12-L1. The distal spinal cord signal intensity is normal. Disc heights are reduced especially at L5-S1. ??There is diffuse disc bulging from L1-L2 and L4-L5. ??There are no annular fissures identified. There is [...] severe spinal canal stenosis. ??Ligamentum flavum infolding. L3-L4: ??Moderate disc bulge. There is moderate [...] stenosis. There is no spinal canal stenosis Procedure Note Joseph Infante MD - 07/20/2018 EXAMINATION: Magnetic resonance imaging (MRI) of the lumber spine without and with contrast. HISTORY: Left side sciatica. TECHNIQUE: Multiplanar multi-weighted MRI of the lumbar spine was performed without and with intravenous contrast using the standard lumbar spine protocol. COMPARISON: None available. FINDINGS: There is grade 1 anterolisthesis of L4 on L5. There are hemangiomas involving L3 and L4. There is moderate type I changes at L3-L4 and L4-L5. Mixed Modic changes (2 and 3) at L2-L3. Partial fusion of the disc space at [...] severe spinal canal stenosis. Ligamentum flavum infolding. L3-L4: Moderate disc bulge. There is moderate [...] stenosis. There is no spinal canal stenosis IMPRESSION: 1. Moderate to severe degenerative changes as detailed above with severe canal narrowing. Dictated by: Ariane Neely M.D. The radiology attending physician has personally reviewed this study, and had reviewed and/or edited this written report and agrees with it. Electronically signed by: Joseph Infante M.D. Kraig Ching MD IM MRI PROCEDURES Edited Res ult - Final * XR Spine Lumbar Complete 4 Or [...] MD IMG XR PROCEDURES Final Resul t * (ABNORMAL) Hemoglobin A1c (07/15/2018 3:24 PM CDT) Hgb A1C 10.3(H) 4.0 - 5.6 % [facility] Estimated Average Glucose 249 mg/dL [facility] Comment: The ADA recommends reporting an estimated Average Glucose (eAG) with all Hemoglobin A1c results using the equation derived from a study of 507 normal and diabetic adults. ??Minority populations were underrepresented and children were not included. ?? (Diabetes Care 31:5911-1888, 2008). ??The eAG is not equivalent to a fasting glucose. Blood specimen (specimen) 07/15/2018 3:24 PM CDT 07/15/2018 10:06 PM CDT Narrative [facility] - 07/15/2018 10:35 PM CDT Kraig Ching MD LAB BLOOD ORDERABLES Final Re sult [facility] Department [place] [address] * (ABNORMAL) CBC with auto differential (07/15/2018 3:24 PM CDT) WBC 8.7 3.8 - 9.9 K/cumm [facility] Hgb 12.4(L) 13.0 - 17.5 g/dL [facility] Hct 38.9 38.9 - 50.3 % [facility] Plt 476(H) 150 - 400 K/cumm [facility] MPV 9.1 9.1 - 12.3 fL [facility] RBC 4.59 4.30 - 5.80 M/cumm [facility] MCV 84.7 81.3 - 96.4 fL [facility] MCH 27.0(L) 27.1 - 33.3 pg [facility] MCHC 31.9(L) 32.3 - 35.7 g/dL [facility] RDW CV 14.0 11.1 - 14.9 % [facility] RDW SD 43.2 35.7 - 48.1 fL [facility] NRBC abs 0.00 0.00 - 0.01 K/cumm [facility] Blood specimen (specimen) 07/15/2018 3:24 PM CDT 07/15/2018 10:06 PM CDT Narrative [facility] - 07/15/2018 10:28 PM CDT Kraig Ching MD LAB BLOOD ORDERABLES Final Re s[facility] Department [place] [address] documented in this encounter Visit Diagnoses Diagnosis SBO (small bowel obstruction) (CMS/HCC) (HCC)- Primary Unspecified intestinal obstruction Hypertensive kidney disease with chronic kidney disease stage III (HCC) Unspecified hypertensive kidney disease with chronic kidney disease stage I through stage IV, or unspecified Stage 3 chronic kidney disease (HCC) Type 2 diabetes mellitus with stage 3 chronic kidney disease, without long-term current use of insulin (HCC) Sciatica of left side Therapeutic drug monitoring Encounter for therapeutic drug monitoring Sciatica of left side Sciatica of left side documented in this encounter Care Teams Casing Runner Relationship Specialty Start Date End Date Kraig Ching MD [address] [facility] [address] [place] [address] PCP - General 07/10/16 documented as of this encounter
--- OUTSIDE RECORDS SUMMARY | 2024-03-31 05:03 | XMS_ITS | Encounter Summary ---
Author Organization [facility] Address [address] [place] [address] Care Team Providers Care Enterprise Integration Architect Name Role Phone Kraig Ching MD Primary Care Provider [phone] Reason for Referral * Diagnostic Imaging (Routine) - Closed Specialty Diagnoses / Procedures Referred By Saleem t Referred To Contact Radiology Diagnoses Sciatica of left side Procedures MRI Lumbar Spine WO Contrast Kraig Ching MD Phone: tel: fax: [address] [address] Referral ID Status Reason Start Date Expiration Date Visits Re quested Visits Authorized [id number] Closed 07/15/2018 01/24/2020 1 1 Reason for Visit * Diagnostic Imaging (Routine) - Closed Specialty Diagnoses / Procedures Referred By Saleem narvaez Referred To Contact Radiology Diagnoses Sciatica of left side Procedures MRI Lumbar Spine WO Contrast Kraig Ching MD Phone: tel: fax: [address] [phone] Referral ID Status Reason Start Date Expiration Date Visits Re quested Visits Authorized [id number] Closed 07/15/2018 01/24/2020 1 1 Encounter Details Date Type Department Care Team (Latest Contact Info) Description 07/20/2018 11:17 AM CDT - 07/20/2018 11:59 PM CDT Hospital Encounter [facility] [address] [place] [address] Kraig Ching MD [address] [facility] [address] [place] [address] Sciatica of left side Discharge Disposition: Discharge [...] on file 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 Gender Identity Not on file [...] Name Priority Date/Time Associated Diagnosis Comments MRI LUMBAR SPINE WO CONTRAST Schedule Routine, Read Routine (OP Routine) 07/20/2018 12:44 PM CDT Sciatica of left side documented in this encounter Results * MRI Lumbar Spine [...] MRI PROCEDURES Edited Res ult - Final documented in this encounter Visit Diagnoses Diagnosis Sciatica of left side documented in this encounter Care Teams Enterprise Integration Architect Relationship Specialty Start Date End Date Kraig Ching MD [address] [facility] [address] [place] [address] PCP - General 07/10/16 documented as of this encounter
--- OUTSIDE RECORDS SUMMARY | 2024-03-31 05:03 | XMS_ITS | Encounter Summary ---
Author Organization [facility] Address [address] [place] [address] Care Team Providers Care Marine Farmer Name Role Phone Kraig Ching MD Primary Care Provider [phone] Reason for Referral * Consultation (Routine) - Closed Specialty Diagnoses / Procedures Referred By Contac t Referred To Contact Pain Management Diagnoses Sciatica, left side Kraig Ching MD Phone: tel: fax: [facility] Referral ID Status Reason Start Date Expiration Date V isits Requested Visits Authorized [id number] Closed Specialty Services Required 07/21/2018 01/30/2020 6 6 Question Answer Please select the performing region: [facility] [[id number]] # of visits: 6 Comments [facility] pain management Encounter Details Date Type Department Care Team (Late st Contact Info) Description 07/21/2018 Orders Only [facility] [address] [facility] [address] [place] [address] Kraig Ching MD [address] [facility] [address] [place], [place] [id number] Sciatica, left side (Primary Dx) Social History Tobacco Use Types Packs/Day Years Used Date Smoking Tobacco: Former Smokeless Tobacco: Former Comments:Smoking History Pac ks/day: 10 Cigarettes Alcohol Use Standard Drinks/Week Comments No 0 (1 standard drink = 0.6 oz pur e alcohol) quit 09/2017 Sex and Gender Information Value Date Recorded Sex Assigned at Not on file 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 I will refer to pain management. documented in this encounter Plan of Treatment Pending Results Name Type Priority Associated Diagnoses Date/Time Ambulatory referral to Pain Management Outpatient Referral Routine Sciatica, left side 09/12/2018 8:42 AM CDT Scheduled Referrals Name Type Priority Associated Diagnoses Order Schedule Ambulatory referral to Pain Management Outpatient Referral Routine Sciatica, left side 1 Occurrences starting 07/21/2018 until 01/20/2019 documented as of this encounter Visit Diagnoses Diagnosis Sciatica, left side- Primary documented in this encounter Care Teams Marine Farmer Relationship Specialty Start Date End Date Kraig Ching MD [address] [address] PCP - General 07/10/16 documented as of this encounter
--- OUTSIDE RECORDS SUMMARY | 2024-03-31 05:03 | XMS_ITS | Encounter Summary ---
Author Organization [facility] Address [address] [place] [address] Phone Care Team Providers Care Referral Agent Name Role Phone Kraig Ching MD Primary Care Provider [phone] Encounter Details Date Type Department Care Team (Latest Contact Info) Description 04/07/2018 Orders Only [facility] Scanning, Provider Social History Tobacco Use Types Packs/Day Years Used Date Smoking Tobacco: Former Smokeless Tobacco: Former Comments:Smoking History Pac ks/day: 10 Cigarettes Alcohol Use Standard Drinks/Week Comments No 0 (1 standard drink = 0.6 oz pur e alcohol) quit 09/2017 Sex and Gender Information Value Date Recorded Sex Assigned at Not on file 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 Gender Identity Not on file Sexual Orientation Not on file documented as of this encounter Progress Notes * Comfort العراقي RN - 04/07/2018 3:47 PM CST BMP, BNP and troponin TICS FACTORY WORKER * Comfort العراقي RN - 04/07/2018 3:47 PM CST Lab results for amyloid screening TICS FACTORY WORKER documented in this encounter Plan of Treatment Not on file documented as of this encounter Procedures Procedure Name Priority Date/Time Associated Diagnosis Comments SCAN - LABS 04/07/2018 documented in this encounter Results * SCAN - LABS (04/07/2018) us Provider Scanning Edited Result - Final documented in this encounter Visit Diagnoses Not on filedocumented in this encounter Care Teams Referral Agent Relationship Specialty Start Date End Date Kraig Ching MD [address] [facility] [address] [place] [address] PCP - General 07/10/16 documented as of this encounter
--- OUTSIDE RECORDS SUMMARY | 2024-03-31 05:03 | XMS_ITS | Encounter Summary ---
Author Organization [facility] Address [address] [place] [address] Phone Care Team Providers Care Design Painter Name Role Phone Kraig Ching MD Primary Care Provider [phone] Reason for Visit * Reason Onset Date Comments CALL BACK 01/25/2018 Encounter Details Date Type Department Care Team (Late st Contact Info) Description 01/25/2018 Telephone [facility] Cardiology [address] [facility] [address] [place] [address] [place] [address] Junior Gonzalez MD [address] [facility] [address] [place] [address] CALL BACK Social History Tobacco Use Types Packs/Day Years Used Date Smoking Tobacco: Former Smokeless Tobacco: Never Comments:Smoking History Pac ks/day: 10 Cigarettes Alcohol Use Standard Drinks/Week Comments No 0 (1 standard drink = 0.6 oz pur e alcohol) quit 09/2017 Sex and Gender Information Value Date Recorded Sex Assigned at Not on file 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
--- OUTSIDE RECORDS SUMMARY | 2024-03-31 05:03 | XMS_ITS | Encounter Summary ---
Author Organization [facility] Address [address] [place] [address] Phone Care Team Providers Care Hotel Room Attendant Name Role Phone Kraig Ching MD Primary Care Provider [phone] Encounter Details Date Type Department Care Team (Late st Contact Info) Description 04/07/2018 Telephone [facility] Cardiology [address] [facility] [address]th [place] [address] [place] [id number] Junior Gonzalez MD [address] [facility] [address] [place] [address] Social History Tobacco Use Types Packs/Day Years Used Date Smoking Tobacco: Former Smokeless Tobacco: Former Comments:Smoking History Pac ks/day: 10 Cigarettes Alcohol Use Standard Drinks/Week Comments No 0 (1 standard drink = 0.6 oz pur e alcohol) quit 09/2017 Sex and Gender Information Value Date Recorded Sex Assigned at Not on file 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 No answer in lab. NESS PROCESS ASSOCIATE * Telephone Encounter - Wilmer Leigh - 04/07/2018 10:28 AM CST Would like to get clarification on blood work orders. NESS PROCESS ASSOCIATE * Telephone Encounter - Lucia Raymundo - 04/07/2018 10:24 AM BUSINESS PROCESS ASSOCIATE Started in error NESS PROCESS ASSOCIATE documented in this encounter Plan of Treatment Not on file documented as of this encounter Visit Diagnoses Not on filedocumented in this encounter Care Teams Hotel Room Attendant Relationship Specialty Start Date End Date Kraig Ching MD [address] [address] PCP - General 07/10/16 documented as of this encounter
--- OUTSIDE RECORDS SUMMARY | 2024-03-31 05:04 | XMS_ITS | Encounter Summary ---
Author Organization [facility] Address [address] [place] [address] Care Team Providers Care Ad Clerk Name Role Phone Kraig Ching MD Primary Care Provider [phone] Encounter Details Date Type Department Care Team (Latest Contact Info) Description 07/22/2016 12:32 PM CDT - 07/22/2016 11:59 PM CDT Hospital Encounter [facility] OP INTERIM [phone] Kraig Ching MD [address] [facility] [address] [place] [address] Discharge Disposition: Discharge to home or self care Social History Tobacco Use Types Packs/Day Years Used Date Smoking Tobacco: Heavy Smoker Cigarettes Last attempted t o quit: 04/12/2004 Comments:Smoking History Pac ks/day: 10 Cigarettes Alcohol Use Standard Drinks/Week Comments Yes 0 (1 standard drink = 0.6 oz pur e alcohol) Sex and Gender Information Value Date Recorded Sex Assigned at Not on file 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 30 6 2 09/09/19 18 aspirin (ASPIR-81) 81 mg tablet take 1 tablet by oral route every day 0 0 4 11/26/19 18 blood glucose diagnostic (SURESTEP TEST) strip Test sugars two times per day as directed 100 3 8 09/19/19 18 clotrimazole (ATHLETIC FOOT CREAM) 1 % cream apply by topical route 2 times every day to the affected and surrounding areas of skin in the morning and evening 30 0 7 11/19/19 18 cyclobenzaprine (FLEXERIL) 10 mg tablet take 1 tablet by oral route 2 times every day 30 0 4 11/19/19 18 dapagliflozin (FARXIGA) 5 mg tablet TAKE 1 TABLET BY MOUTH EVERY DAY IN THE MORNING 30 5 6 02/04/20 17 ezetimibe (ZETIA) 10 mg tablet take 1 tablet by oral route every day 30 2 6 11/19/19 18 fenofibrate nanocrystallized (TRICOR,TRIGLIDE) 145 mg tablet TAKE ONE BY MOUTH ONE TIME PER DAY 30 10 6 11/03/19 17 lisinopril (PRINIVIL,ZESTRIL) 40 mg tablet TAKE ONE BY MOUTH ONE TIME PER DAY 90 3 7 12/25/19 17 metFORMIN (GLUCOPHAGE) 1,000 mg tablet TAKE 1 TABLET BY MOUTH TWICE DAILY 180 5 7 09/13/19 18 potassium chloride ER (KLOR-CON,K-DUR) 20 mEq CR tablet TAKE 1 TABLET BY MOUTH EVERY MORNING 30 5 8 11/19/19 18 documented as of this encounter Discharge Disposition Disposition Code Departure Means Destination Discharge to home or self care documented in this encounter Plan of Treatment Not on file documented as of this encounter Procedures Procedure Name Priority Date/Time Associated Diagnosis Comments ALBUMIN / CREATININE URINE RATIO, RANDOM Routine Gen Lab 07/22/2016 12:42 PM CDT CS GLUCOSE Routine Gen Lab 07/22/2016 12:41 PM CDT DIFFERENTIAL AUTO Routine Gen Lab 07/22/2016 12: 41 PM CDT COMPREHENSIVE METABOLIC PANEL WITHOUT GLUCOSE (OUTREACH) Routine Gen Lab 07/22/2016 12:41 PM CDT CBC WITH AUTO DIFFERENTIAL Routine Gen Lab 07/22/2016 12:41 PM CDT LIPID PANEL Routine Gen Lab 07/22/2016 12:41 PM CDT documented in this encounter Results * (ABNORMAL) ALBUMIN / CREATININE URINE RATIO, RANDOM (07/22/2016 12:42 PM CDT) Microalbumin, ur 17.6 mcg/mL [facility] Creatinine, ur 46.30 mg/dL [facility] Microalbumin/c reat ratio 38.0(H) 0.1 - 29.9 mcg/mg Cr [facility] Urine 07/22/2016 12:4 2 PM CDT 07/22/2016 2:07 PM CDT [facility] BLOOD BANK TEST ORDERA BLES Final Result [facility] [place] [address] * (ABNORMAL) Lipid panel (07/22/2016 12:41 PM CDT) Cholesterol 204(H) 30 - 200 mg/dL [facility] Comment: Interpretive Data Desirable: ?<200 mg/dL Borderline high: ??200-239 mg/dL High: ? > or = 240 mg/dL Literature Reference: National Cholesterol Education Program (NCEP) Expert Panel on Detection, Evaluation, and Treatment of High Blood Cholesterol in Adults (Adult Treatment Panel III). ??Circulation 2004; 110:227. Current interpretive data was last revised on 2015. Triglycerides 151(H) 0 - 150 mg/dL [facility] Comment: Interpretive Data Desirable: ? < 150 mg/dL Borderline High: ? 150 - 199 mg/dL High: ?200 - 499 mg/dL Very High: ? > or = 499 mg/dL Literature Reference: See Cholesterol Current interpretive data was last revised on 2015. HDL 35(L) >=40 mg/dL [facility] Comment: Interpretive Data Less than 40 mg/dL - low; A major risk factor for heart disease. Greater than or equal to 60 mg/dL - High; ??considered protective of heart disease. Literature Reference: See Cholesterol Current interpretive data was last revised on 2015. LDL, calculated 139(H) 10 - 129 mg/dL [facility] Comment: Interpretive Data Optimal: ? < 100 mg/dL Near Optimal: ?100 - 129 mg/dL Borderline High: ?? 130 - 159 mg/dL High: ?160 - 189 mg/dL Very high: ? > or = 190 mg/dL Literature Reference: See Cholesterol Current interpretive data was last revised on 2015. Non-HDL Cholesterol 169 mg/dL [facility] Comment: Interpretive Data When triglycerides are >200 mg/dL, non-HDL C is a secondary target of therapy, with a goal 30 mg/dL higher than the identified LDL-C goal. Reference: ??See Cholesterol Reference. Current interpretive data was last revised 2015. Blood specimen (specimen) 07/22/2016 12:41 PM CDT 07/22/2016 2:07 PM CDT [facility] BLOOD ORDERABLES Edite d Result - Final [facility] [place] [address] * (ABNORMAL) Comprehensive metabolic panel without glucose (outreach) (07/22/2016 12:41 PM CDT) Sodium 141 135 - 145 mmol/L [facility] Potassium, pl 4.0 3.3 - 4.9 mmol/L [facility] Chloride 104 97 - 110 mmol/L [facility] Comment:fixed result mapping CO2 25 22 - 32 mmol/L [facility] Anion gap 12 2 - 15 mmol/L [facility] BUN 19 8 - 25 mg/dL [facility] Creatinine 1.34(H) 0.80 - 1.30 mg/dL [facility] Calcium 9.6 8.5 - 10.3 mg/dL [facility] Protein, pl 7.4 6.5 - 8.5 g/dL [facility] Albumin 4.7 3.5 - 5.0 g/dL [facility] Bilirubin, total 0.3 0.1 - 1.2 mg/dL [facility] Alk phos 53 40 - 130 Units/L [facility] AST 24 10 - 50 Units/L [facility] ALT 22 7 - 55 Units/L [facility] Blood specimen (specimen) 07/22/2016 12:41 PM CDT 07/22/2016 2:07 PM CDT [facility]QU[facility] LAB BLOOD ORDERABLES Edite d Result - Final [facility] [place] [address] * (ABNORMAL) Differential, auto (07/22/2016 12:41 PM CDT) Neutrophil pct 64.1 % [facility] Imm gran pct 0.3 % [facility] Lymphocyte pct 19.9 % [facility] Monocyte pct 10.9 % [facility] Eosinophil pct 4.3 % [facility] Basophil pct 0.5 % [facility] Neutrophil abs 5.53 1.70 - 6.50 K/cumm [facility] Imm gran abs 0.03 0.00 - 0.10 K/cumm [facility] Lymphocyte abs 1.72 0.80 - 3.30 K/cumm [facility] Monocyte abs 0.94(H) 0.20 - 0.80 K/cumm [facility] Eosinophil abs 0.37 0.00 - 0.50 K/cumm [facility] Basophil abs 0.04 0.00 - 0.10 K/cumm [facility] Blood specimen (specimen) 07/22/2016 12:41 PM CDT 07/22/2016 2:06 PM CDT Katherine ESQU[facility] LAB BLOOD ORDERABLES Final Result [facility] [place] [address] * (ABNORMAL) CBC with auto differential (07/22/2016 12:41 PM CDT) WBC 8.63 3.80 - 9.90 K/cumm [facility] RBC 4.73 4.30 - 5.80 M/cumm [facility] Hgb 13.1 13.0 - 17.5 g/dL [facility] Hct 41.1 38.9 - 50.3 % [facility] MCV 86.9 81.3 - 96.4 fL [facility] MCH 27.7 27.1 - 33.3 pg [facility] MCHC 31.9(L) 32.3 - 35.7 g/dL [facility] RDW CV 14.0 11.1 - 14.9 % [facility] RDW SD 44.9 35.7 - 48.1 fL [facility] Plt 425(H) 150 - 400 K/cumm [facility] MPV 9.4 9.1 - 12.3 fL [facility] NRBC 0.0 0.0 - 0.2 % [facility] NRBC abs 0.00 0.00 - 0.01 K/cumm [facility] Blood specimen (specimen) 07/22/2016 12:41 PM CDT 07/22/2016 2:06 PM CDT Katherine [facility]QU[facility] BLOOD ORDERABLES Final Result [facility] [place] [address] * CS GLUCOSE (07/22/2016 12:41 PM CDT) Glucose 99 70 - 199 mg/dL [facility] Anatomical Region Laterality Modality Other Blood specimen (specimen) 07/22/2016 12:41 PM CDT 07/22/2016 2:07 PM CDT us Katherine [facility] BLOOD ORDERABLES Final Result documented in this encounter Visit Diagnoses Not on filedocumented in this encounter Care Teams Ad Clerk Relationship Specialty Start Date End Date Kraig Ching MD [address] [address] PCP - General 07/10/16 documented as of this encounter
--- OUTSIDE RECORDS SUMMARY | 2024-03-31 05:04 | XMS_ITS | Encounter Summary ---
Author Organization [facility] Address [address] [place] [address] Care Team Providers Care Vessel Builder Name Role Phone Kraig Ching MD Primary Care Provider [phone] Encounter Details Date Type Department Care Team (Late st Contact Info) Description 10/28/2017 Telephone [facility] [address] 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
--- OUTSIDE RECORDS SUMMARY | 2024-03-31 05:04 | XMS_ITS | Encounter Summary ---
Author Organization [facility] Address [address] [place] [address] Care Team Providers Care Histology Manager Name Role Phone Kraig Ching MD Primary Care Provider [phone] Reason for Visit * Reason Onset Date Comments dr ching-medical question 10/22/2017 Encounter Details Date Type Department Care Team (Late st Contact Info) Description 10/22/2017 Telephone [facility] [address] [place] [address] Kraig Ching MD [address] [facility] [address] [place], [place] [id number] dr ching-medical question Social History Tobacco Use Types Packs/Day Years Used Date Smoking Tobacco: Heavy Smoker Smokeless Tobacco: Never Comments:Smoking History Pac ks/day: 10 Cigarettes Alcohol Use Standard Drinks/Week Comments Yes 0 (1 standard drink = 0.6 oz pur e alcohol) Sex and Gender Information Value Date Recorded Sex Assigned at Not on file 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 Please make a Hospital follow-up appointment with me or colleague. * Telephone Encounter - AnnaShweta - 10/22/2017 1:46 PM CDT Patients called in stated patient was given a medication list with current and prior medications. Avani stated patient is wanting to know what medications he is supposed to be taking at this time.Please advise. Avani's call back number is [phone] documented in this encounter Plan of Treatment Not on file documented as of this encounter Visit Diagnoses Not on filedocumented in this encounter Care Teams Histology Manager Relationship Specialty Start Date End Date Kraig Ching MD [address] [address] PCP - General 07/10/16 documented as of this encounter
--- OUTSIDE RECORDS SUMMARY | 2024-03-31 05:04 | XMS_ITS | Encounter Summary ---
Author Organization [facility] Medical Group Address [address] [place] [address] Care Team Providers Care Wool Grower Name Role Phone Kraig Ching MD Primary Care Provider [phone] Encounter Details Date Type Department Care Team (Late st Contact Info) Description 08/30/2017 11:00 AM CDT Office Visit [facility] [address] [facility] [address] [place] [address] Kraig Ching MD [address] [facility] [address] [place], [place] [id number] Essential hypertension (Primary Dx); Type 2 diabetes mellitus with other specified complication, without long-term current use of insulin (CMS/HCC); Hyperlipidemia associated with type 2 diabetes mellitus ([facility]); Therapeutic drug monitoring; Encounter for screening; Allergy to statin medication; Tobacco use Social History Tobacco Use Types Packs/Day Years Used Date Smoking Tobacco: Heavy Smoker Smokeless Tobacco: Never Comments:Smoking History Pac ks/day: 10 Cigarettes Alcohol Use Standard Drinks/Week Comments Yes 0 (1 standard drink = 0.6 oz pur e alcohol) Sex and Gender Information Value Date Recorded Sex Assigned at Not on file 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 Gender Identity Not on file Sexual Orientation Not on file documented as of this encounter Last Filed Vital Signs Vital Sign Reading Time Taken Comments Blood Pressure 130/62 08/30/2017 10:51 AM CDT Pulse 75 08/30/2017 10:51 AM CDT Temperature 36.8 ??C (98.3 ??F) 08/30/2017 10:51 AM C DT Respiratory Rate - - Oxygen Saturation 88% 08/30/2017 10:51 AM CDT Inhaled Oxygen Concentration - - Weight 89.8 kg (198 lb) 08/30/2017 10:51 AM CDT Height 177.8 cm (5' 10 ) 08/30/2017 10:51 AM CDT Body Mass Index 28.41 08/30/2017 10:51 AM CDT documented in this encounter Ordered Prescriptions Prescription Sig Dispense Quantity Refills Last Filled Start Date End Date dapagliflozin (FARXIGA) 5 mg tablet Take 1 tablet (5 mg total) by mouth daily. 90 tablet 3 08/30/2017 10/10/2017 documented in this encounter Progress Notes * Kraig Ching MD - 08/30/2017 11:00 AM CDT Subjective/Objective Patient ID: David Wei is a 76 y.o. male. Chief Complaint Follow-up HPI 1.HTN. He reporst compliance with medications. He smokes 6 cigarettes a day. 2.D.M. He reports compliance with Diabetic medications. He is prescribed zetia and gemfibrozil for hyperlipidemia. He is allergic to statins. He has increased exercise. Review of Systems Constitutional: Negative. HENT: Negative for sore throat. Eyes: Negative for visual disturbance. Respiratory: Negative for shortness of breath. Cardiovascular: Negative for chest pain. Gastrointestinal: Negative for abdominal pain. Genitourinary: Negative for hematuria. Musculoskeletal: Positive for back pain. Negative for arthralgias. Skin: Negative for rash. Neurological: Negative for dizziness. Psychiatric/Behavioral: Positive for sleep disturbance. BP 130/62 (BP Location: Left arm, Patient Position: Sitting) Pulse 75 Temp 36.8 ??C (98.3 ??F) (Oral) Ht 177.8 cm (5' 10 ) Wt 89.8 kg (198 lb) SpO2 (!) 88% BMI 28.41 kg/m?? Physical Exam Constitutional: He appears well-developed. HENT: Head: Normocephalic. Eyes: Pupils are equal, round, and reactive to light. Cardiovascular: Normal rate and regular rhythm. Pulses: Dorsalis pedis pulses are 2+ on [...] orders for this visit: Essential hypertension (Primary) Assessment & Plan: Hypertension is controlled. Continue current regimen. Reviewed low sodium diet. Type 2 diabetes mellitus with other specified complication, without long-term current use of insulin ([facility]) - Hemoglobin A1c; Future - Microalbumin / creatinine ratio, urine, random; Future Hyperlipidemia associated with type 2 diabetes mellitus ([facility]) - Lipid panel; Future Therapeutic drug monitoring - Comprehensive metabolic panel; Future - CBC without differential; Future Encounter for screening Allergy to statin medication Tobacco use Assessment & Plan: Advised cessation. Other orders - dapagliflozin (FARXIGA) 5 mg tablet; Take 1 tablet (5 mg total) by mouth daily. documented in this encounter Miscellaneous Notes * Assessment & Plan Note - Kraig Ching MD - 08/30/2017 10:59 AM CDT Associated Problem(s): Hypertension Hypertension is controlled. Continue current regimen. Reviewed low sodium diet. * Assessment & Plan Note - Kraig Ching MD - 08/30/2017 9:05 AM CDT Associated Problem(s): Tobacco use Advised cessation. documented in this encounter Plan of Treatment Not on file documented as of this encounter Results * (ABNORMAL) CBC without differential (08/30/2017 11:20 AM CDT) [facility] WBC 8.2 3.8 - 9.9 K/cumm [facility] RBC 4.62 4.30 - 5.80 M/cumm [facility] Hgb 13.0 13.0 - 17.5 g/dL [facility] Hct 39.9 38.9 - 50.3 % [facility] MCV 86.4 81.3 - 96.4 fL [facility] MCH 28.1 27.1 - 33.3 pg [facility] MCHC 32.6 32.3 - 35.7 g/dL [facility] RDW CV 14.0 11.1 - 14.9 % [facility] RDW SD 43.8 35.7 - 48.1 fL [facility] NRBC abs 0.00 0.00 - 0.01 K/cumm [facility] Plt 502(H) 150 - 400 K/cumm [facility] MPV 9.4 9.1 - 12.3 fL [facility] Blood specimen (specimen) 08/30/2017 11:20 AM CDT 08/30/2017 1:19 PM CDT Narrative [facility] - 08/30/2017 1:27 PM CDT Kraig Ching MD LAB BLOOD ORDERABLES Final Re sult [facility] [place] [address] * (ABNORMAL) Comprehensive metabolic panel (08/30/2017 11:20 AM CDT) Sodium 138 135 - 145 mmol/L [facility] Potassium, pl 4.5 3.3 - 4.9 mmol/L [facility] CO2 27 22 - 32 mmol/L [facility] BUN 24 8 - 25 mg/dL [facility] Glucose 96 70 - 199 mg/dL [facility] Comment: Interpretive Data Fasting glucose >/= [...] Current interpretive data was last revised 2017. Creatinine 1.66(H) 0.80 - 1.30 mg/dL [facility] Calcium 9.5 8.5 - 10.3 mg/dL [facility] Chloride 102 97 - 110 mmol/L [facility] Albumin 4.4 3.5 - 5.0 g/dL [facility] AST 18 10 - 50 Units/L [facility] ALT 11 7 - 55 Units/L [facility] Alk phos 59 40 - 130 Units/L [facility] Bilirubin, total 0.2 0.1 - 1.2 mg/dL [facility] Protein, pl 7.3 6.5 - 8.5 g/dL [facility] Anion gap 9 2 - 15 mmol/L [facility] Blood specimen (specimen) 08/30/2017 11:20 AM CDT 08/30/2017 2:16 PM CDT Narrative [facility] - 08/30/2017 2:17 PM CDT us Kraig Ching MD LAB BLOOD ORDERABLES Final Re sult Performing Organization Address [facility]/ZIP Co de Phone Number [facility] [address] [facility] [place] [address] * (ABNORMAL) Microalbumin / creatinine ratio, urine, random (08/30/2017 11:20 AM CDT) Microalbumin, ur <12.0 mcg/mL [facility] Creatinine, ur 32.90 mg/dL [facility] Microalbumin/c reat ratio <36.5(H) 0.1 - 29.9 mcg/mg Cr [facility] Urine 08/30/2017 11:2 0 AM CDT 08/30/2017 2:05 PM CDT Narrative [facility] - 08/30/2017 2:06 PM CDT Kraig Ching MD LAB URINE ORDERABLES Final Re sult [facility] [address] [facility] [place] [address] * (ABNORMAL) Lipid panel (08/30/2017 11:20 AM CDT) Cholesterol 210(H) 30 - 200 mg/dL [facility] Comment: Interpretive Data Desirable: ?<200 mg/dL Borderline high: ??200-239 mg/dL High: ? > or = 240 mg/dL Literature Reference: National Cholesterol Education Program (NCEP) Expert Panel on Detection, Evaluation, and Treatment of High Blood Cholesterol in Adults (Adult Treatment Panel III). ??Circulation 2004; 110:227. Current interpretive data was last revised on 2015. Triglycerides 164(H) 0 - 150 mg/dL [facility] Comment: Interpretive Data Desirable: ? < 150 mg/dL Borderline High: ? 150 - 199 mg/dL High: ?200 - 499 mg/dL Very High: ? > or = 499 mg/dL Literature Reference: See Cholesterol Current interpretive data was last revised on 2015. HDL 37(L) >=40 mg/dL [facility] Comment: Interpretive Data Less than 40 mg/dL - low; A major risk factor for heart disease. Greater than or equal to 60 mg/dL - High; ??considered protective of heart disease. Literature Reference: See Cholesterol Current interpretive data was last revised on 2015. LDL, calculated 140(H) 10 - 129 mg/dL [facility] Comment: Interpretive Data Optimal: ? < 100 mg/dL Near Optimal: ?100 - 129 mg/dL Borderline High: ?? 130 - 159 mg/dL High: ?160 - 189 mg/dL Very high: ? > or = 190 mg/dL Literature Reference: See Cholesterol Current interpretive data was last revised on 2015. Non-HDL Cholesterol 173 mg/dL [facility] Comment: Interpretive Data When triglycerides are >200 mg/dL, non-HDL C is a secondary target of therapy, with a goal 30 mg/dL higher than the identified LDL-C goal. Reference: ??See Cholesterol Reference. Current interpretive data was last revised 2015. Blood specimen (specimen) 08/30/2017 11:20 AM CDT 08/30/2017 2:16 PM CDT Narrative [facility] - 08/30/2017 2:17 PM CDT Kraig Ching MD LAB BLOOD ORDERABLES Final Re sult Performing Organization Address [facility] de Phone Number [facility] [place] [address] * (ABNORMAL) Hemoglobin A1c (08/30/2017 11:20 AM CDT) Hgb A1C 7.3(H) 4.0 - 5.6 % [facility] Estimated Average Glucose 163 mg/dL [facility] Comment: The ADA recommends reporting an estimated Average Glucose (eAG) with all Hemoglobin A1c results using the equation derived from a study of 507 normal and diabetic adults. ??Minority populations were underrepresented and children were not included. ?? (Diabetes Care 31:0423-7681, 2008). ??The eAG is not equivalent to a fasting glucose. Blood specimen (specimen) 08/30/2017 11:20 AM CDT 08/31/2017 2:26 AM CDT Narrative [facility] - 08/31/2017 5:47 AM CDT Kraig Ching MD LAB BLOOD ORDERABLES Final Re sult Performing Organization Address [facility] Co de Phone Number [facility] [place] [address] documented in this encounter Visit Diagnoses Diagnosis Essential hypertension- Primary Unspecified essential hypertension Type 2 diabetes mellitus with other specified complication, without long-term current use of insulin (HCC) Hyperlipidemia associated with type 2 diabetes mellitus (HCC) Therapeutic drug monitoring Encounter for therapeutic drug monitoring Encounter for screening Allergy to statin medication Tobacco use documented in this encounter Discontinued Medications Medication Sig Discontinue Reason Start Date End Da te FARXIGA 5 mg tablet TAKE 1 TABLET BY MOUTH EVERY DAY IN THE MORNING Reorder 04/10/2017 08/30/2017 documented as of this encounter Care Teams Wool Grower Relationship Specialty Start Date End Date Kraig Ching MD [address] [address] PCP - General 07/10/16 documented as of this encounter
--- OUTSIDE RECORDS SUMMARY | 2024-03-31 05:04 | XMS_ITS | Encounter Summary ---
Author Organization [facility] Medical Group Address [address] [place] [address] Care Team Providers Care Job Compositor Name Role Phone Kraig Ching MD Primary Care Provider [phone] Encounter Details Date Type Department Care Team (Late st Contact Info) Description 11/01/2017 Nurse Triage [facility] [address] [place] [id number] Kraig Ching MD [address] [facility] [address] [address] [place], [place] [id number] Social History Tobacco Use Types Packs/Day Years Used Date Smoking Tobacco: Heavy Smoker Smokeless Tobacco: Never Comments:Smoking History Pac ks/day: 10 Cigarettes Alcohol Use Standard Drinks/Week Comments Yes 0 (1 standard drink = 0.6 oz pur e alcohol) Sex and Gender Information Value Date Recorded Sex Assigned at Not on file 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 Need to rule out a GI bleed. * Telephone Encounter - Bettye Buitrago RN - 11/01/2017 1:46 PM CDT S- Avani Rivera calling for pt who has had a black stool last 2 days but no bm today yet. Pt is not with her B- She is wanting to know if the new medications that he is taking can cause black stool. Does not know if the stool had an usual odor. She does not know if he is having abd pain but does not think so. He is more tired than usual. Pt is at the gym working out right now. She wants Rajani to be aware this is going on. Advised when pt is available to have him call back so more information can be obtained if needed. Reason for Disposition ??? Caller has URGENT medication question about med that PCP prescribed and triager unable to answer question Protocols used: MEDICATION QUESTION [id number] ACTION REQUIRED: Please advise. CB# [phone] Routed to [facility] * Telephone Encounter - Bettye Buitrago RN - 11/01/2017 1:36 PM CDT Regarding: Black stool ----- Message from Clau Bridges sent at 11/01/2017 1:35 PM CDT ----- Symptom Based Call Chief Complaint: Black stool Duration: 2-3 days Appointment Details: Red flag Caller's Callback #: [phone] Additional Comments: Patients states that he has had black stool for 2-3 days documented in this encounter Plan of Treatment Not on file documented as of this encounter Visit Diagnoses Not on filedocumented in this encounter Care Teams Job Compositor Relationship Specialty Start Date End Date Kraig Ching MD [address] [facility] [facility] [address] [place] [address] PCP - General 07/10/16 documented as of this encounter
--- OUTSIDE RECORDS SUMMARY | 2024-03-31 05:04 | XMS_ITS | Encounter Summary ---
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 90 tablet 1 7 11/19/19 18 lisinopril (PRINIVIL,ZESTRIL) 40 mg tablet TAKE 1 TABLET BY MOUTH DAILY 90 tablet 7 03/24/20 17 metFORMIN (GLUCOPHAGE) 1,000 mg tablet TAKE 1 TABLET BY MOUTH TWICE DAILY 180 5 7 09/13/19 18 potassium chloride ER (KLOR-CON,K-DUR) 20 mEq CR tablet TAKE 1 TABLET BY MOUTH EVERY MORNING 30 5 8 11/19/19 18 sertraline (ZOLOFT) 50 mg tablet Take 1 tablet (50 mg total) by mouth daily. 30 tablet 11 7 03/02/20 17 documented as of this encounter Discharge Disposition Disposition Code Departure Means Destination Discharge to home or self care documented in this encounter Plan of Treatment Not on file documented as of this encounter Procedures Procedure Name Priority Date/Time Associated Diagnosis Comments DISCHARGE LABORATORY CUMULATIVE REPORT 01/15/2017 12:00 AM CDT documented in this encounter Results * DISCHARGE LABORATORY CUMULATIVE REPORT (01/15/2017 12:00 AM CDT) Narrative 01/15/2017 12:00 AM CDT Ordered by an unspecified provider. us Historical Provider LAB BLOOD ORDERABLES Casi l Result documented in this encounter Visit Diagnoses Not on filedocumented in this encounter Care Teams Manager Purchasing Relationship Specialty Start Date End Date Kraig Ching MD [address] [facility] [address] [place] [address] PCP - General 07/10/16 documented as of this encounter
--- OUTSIDE RECORDS SUMMARY | 2024-03-31 05:04 | XMS_ITS | Encounter Summary ---
Author Organization [facility] Medical Group Address [address] [place] [address] Care Team Providers Care Pigment Pumper Name Role Phone Kraig Ching MD Primary Care Provider [phone] Reason for Visit * Reason Comments Follow-up Encounter Details Date Type Department Care Team (Late st Contact Info) Description 03/02/2017 10:00 AM WEIGHT COUNT OPERATOR Office Visit [facility] [address] [facility] [address] [place] [phone] Kraig Ching MD [address] [facility] [address] [place], [place] [id number] Major depressive disorder with single episode, in partial remission (CMS/HCC) (Primary Dx); Essential hypertension; BMI 29.0-29.9,adult Social History Tobacco Use Types Packs/Day Years Used Date Smoking Tobacco: Heavy Smoker Cigarettes Last attempted t o quit: 04/12/2004 Comments:Smoking History Pac ks/day: 10 Cigarettes Alcohol Use Standard Drinks/Week Comments Yes 0 (1 standard drink = 0.6 oz pur e alcohol) Sex and Gender Information Value Date Recorded Sex Assigned at Not on file 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 Gender Identity Not on file Sexual Orientation Not on file documented as of this encounter Last Filed Vital Signs Vital Sign Reading Time Taken Comments Blood Pressure 128/80 03/02/2017 10:13 AM WEIGHT COUNT OPERATOR Pulse 67 03/02/2017 10:13 AM WEIGHT COUNT OPERATOR Temperature 36.7 ??C (98.1 ??F) 03/02/2017 10:[address] Respiratory Rate 14 03/02/2017 10:13 AM WEIGHT COUNT OPERATOR Oxygen Saturation 96% 03/02/2017 10:13 AM WEIGHT COUNT OPERATOR Inhaled Oxygen Concentration - - Weight 92.5 kg (204 lb) 03/02/2017 10:13 AM WEIGHT COUNT OPERATOR Height 177.8 cm (5' 10 ) 03/02/2017 10:13 AM WEIGHT COUNT OPERATOR Body Mass Index 29.27 03/02/2017 10:13 AM WEIGHT COUNT OPERATOR documented in this encounter Progress Notes * Kraig Ching MD - 03/02/2017 10:00 AM CST Subjective/Objective Patient ID: David Wei is a 76 y.o. male. Chief Complaint Follow-up HPI 1.Depression. At last visit he was started on sertraline for low mood. Symptoms improved and he didnot start the medication. His mood is improved. He denies SI or Hi. He is swimming again. His appetite has returned. 2. HTN. He is prescribed lisinopril. Review of Systems Constitutional: Negative. HENT: Negative for sore throat. Eyes: Negative for visual disturbance. Respiratory: Negative for shortness of breath. Cardiovascular: Negative for chest pain. Gastrointestinal: Negative for abdominal pain. Genitourinary: Negative for hematuria. Musculoskeletal: Positive for arthralgias. Skin: Negative for rash. Neurological: Negative for dizziness. Psychiatric/Behavioral: Negative for self-injury. BP 128/80 (BP Location: Left arm, Patient Position: Sitting) Pulse 67 Temp 36.7 ??C (98.1 ??F) Resp 14 Ht 177.8 cm (5' 10 ) Wt 92.5 kg (204 lb) SpO2 96% BMI 29.27 kg/m?? Physical Exam Constitutional: He appears well-developed. HENT: Head: Normocephalic. Eyes: Pupils are equal, round, and reactive to light. Cardiovascular: Normal rate and regular rhythm. Pulmonary/Chest: Effort normal and breath sounds normal. Musculoskeletal: Normal range of motion. Neurological: He is alert. Skin: Skin is warm. Assessment/Plan Diagnoses and all orders for this visit: Major depressive disorder with single episode, in partial remission (CMS/HCC) (Primary) Assessment & Plan: Mood is improved. Monitor off medication. Essential hypertension Assessment & Plan: Hypertension is controlled. Continue current regimen. Reviewed low sodium diet. BMI 29.0-29.9,adult HT COUNT OPERATOR documented in this encounter Miscellaneous Notes * Assessment & Plan Note - Kraig Ching MD - 03/02/2017 6:53 AM WEIGHT COUNT OPERATOR Associated Problem(s): Major depressive disorder with single episode, in partial remission (HCC) (Resolved 08/30/2017) Mood is improved. Monitor off medication. HT COUNT OPERATOR HT COUNT OPERATOR * Assessment & Plan Note - Kraig Ching MD - 03/02/2017 6:53 AM WEIGHT COUNT OPERATOR Associated Problem(s): Hypertension Hypertension is controlled. Continue current regimen. Reviewed low sodium diet. HT COUNT OPERATOR documented in this encounter Plan of Treatment Not on file documented as of this encounter Visit Diagnoses Diagnosis Major depressive disorder with single episode, in partial remission (HCC)- Primary Essential hypertension Unspecified essential hypertension BMI 29.0-29.9,adult documented in this encounter Discontinued Medications Medication Sig Discontinue Reason Start Date End Da te sertraline (ZOLOFT) 50 mg tablet Take 1 tablet (50 mg total) by mouth daily. 01/15/2017 03/02/2017 documented as of this encounter Care Teams Pigment Pumper Relationship Specialty Start Date End Date Kraig Ching MD [address] [address] PCP - General 07/10/16 documented as of this encounter
--- OUTSIDE RECORDS SUMMARY | 2024-03-31 05:04 | XMS_ITS | Encounter Summary ---
Author Organization [facility] Care Team Providers Care Policy Specialist Name Role Phone Kraig Ching MD Primary Care Provider Encounter Details Date Type Department Care Team (Late st Contact Info) Description 02/25/2015 - 02/25/2015 11:59 PM WAITER/WAITRESS TAVERN Hospital Encounter LOCATED WITHIN [facility] Katherine Del Rio [place] [address] [id number] Abdominal pain Social History Tobacco Use Types Packs/Day Years Used Date Smoking Tobacco: Heavy Smoker Cigarettes Last attempted t o quit: 04/12/2004 Comments:Smoking History Pac ks/day: 10 Cigarettes Alcohol Use Standard Drinks/Week Comments Yes 0 (1 standard drink = 0.6 oz pur e alcohol) Sex and Gender Information Value Date Recorded Sex Assigned at Not on file 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 30 6 02/26/2012 09/08/2017 aspirin (ASPIR-81) 81 mg tablet take 1 tablet by oral route every day 0 0 06/07/2013 11/25/2017 blood glucose diagnostic (SURESTEP TEST) strip Test sugars two times per day as directed 100 3 09/12/2007 09/18/2017 cyclobenzaprine (FLEXERIL) 10 mg tablet take 1 tablet by oral route 2 times every day 30 0 06/20/2013 11/18/2017 lisinopril (PRINIVIL,ZESTRI L) 40 mg tablet TAKE ONE BY MOUTH ONE TIME PER DAY 90 3 02/26/2007 12/24/2016 metFORMIN (GLUCOPHAGE) 1,000 mg tablet TAKE 1 TABLET BY MOUTH TWICE DAILY 180 5 02/26/2007 09/12/2017 potassium chloride ER (KLOR-CON,K-DUR) 20 mEq CR tablet TAKE 1 TABLET BY MOUTH EVERY MORNING 30 5 06/12/2007 11/18/2017 documented as of this encounter Plan of Treatment Not on file documented as of this encounter Procedures Procedure Name Priority Date/Time Associated Diagnosis Comments SERUM LIPASE Routine 02/25/2015 11:13 AM WAITER/WAITRESS TAVERN SERUM GLUCOSE Routine 02/25/2015 11:13 AM WAITER/WAITRESS TAVERN PLASMA COMPREHENSIVE METABOLIC PANEL Routine 02/25/2015 11:13 AM WAITER/WAITRESS TAVERN URINALYSIS Routine 02/25/2015 11:13 AM WAITER/WAITRESS TAVERN BLOOD CELL COUNT (CBC) Routine 5 11:13 AM WAITER/WAITRESS TAVERN DISCHARGE LABORATORY CUMULATIVE REPORT 02/25/2015 documented in this encounter Results * Urinalysis (02/25/2015 11:13 AM WAITER/WAITRESS TAVERN) Color, ur Straw Yellow HISTORICAL RESULTS Clarity, ur Clear Clear HISTORIC AL RESULTS Specific gravity, ur 1.010 1.003 - 1.030 HISTORICAL RESULTS pH, ur 6.0 5.0 - 8.0 HISTORICAL RESULTS Protein, ur Negative Trace HISTORIC AL RESULTS Glucose, ur Negative Negative HISTORIC AL RESULTS Ketones, ur Negative Negative HISTORIC AL RESULTS Bilirubin, ur Negative Negative HISTOR ICAL RESULTS U Blood Negative Negative HISTORICAL RESULTS Urobilinogen, quant, ur <2.0 0.0 - 2.0 mg/dl HISTORICAL RESULTS Nitrites, ur Negative Negative HISTORI CHRISTIAN RESULTS Leukocyte esterase, ur Negative Negative HISTORICAL RESULTS Urine 02/25/2015 11:1 3 AM WAITER/WAITRESS TAVERN Katherine ESQUIVEL LAB BLOOD ORDERABLES Final Result HISTORICAL RESULTS * (ABNORMAL) Plasma comprehensive metabolic panel (02/25/2015 11:13 AM WAITER/WAITRESS TAVERN) Sodium 140 135 - 145 mmol/L HISTORICAL RESULTS K, pl 4.0 3.3 - 4.9 mmol/L HISTORICAL RESULTS Chloride 102 97 - 110 mmol/L HISTORICAL RESULTS CO2 25 22 - 32 mmol/L HISTORICAL RESULTS A. gap 13 0 - 16 mmol/L HISTORICAL RESULTS BUN 22 8 - 25 mg/dl HISTORICAL RESULTS Creatinine 1.16 0.70 - 1.30 mg/dl HISTORICAL RESULTS Calcium 10.0 8.6 - 10.3 mg/dl HISTORICAL RESULTS Protein, pl 7.3 6.5 - 8.5 g/dl HISTORICAL RESULTS Alb 4.7 3.6 - 5.0 g/dl HISTORICAL RESULTS Bilirubin 0.2(L) 0.3 - 1.1 mg/dl HISTORICAL RESULTS Alk phos 47 38 - 126 Units/L HISTORICAL RESULTS AST 23 11 - 47 Units/L HISTORICAL RESULTS ALT 19 7 - 53 Units/L HISTORICAL RESULTS Plasma 02/25/2015 11:1 3 AM WAITER/WAITRESS TAVERN Katherine Flynn Quang PA LAB BLOOD ORDERABLES Final Result Performing Organization Address [facility] de Phone Number HISTORICAL RESULTS * Serum lipase (02/25/2015 11:13 AM WAITER/WAITRESS TAVERN) Lip 31 0 - 99 Units/L HISTORICAL RESULTS Serum 02/25/2015 11:1 3 AM WAITER/WAITRESS TAVERN Katherine Flynn Quang PA LAB BLOOD ORDERABLES Final Result Performing Organization Address [facility] Co de Phone Number HISTORICAL RESULTS * Serum glucose (02/25/2015 11:13 AM WAITER/WAITRESS TAVERN) Glucose 123 70 - 199 mg/dl HISTORICAL RESULTS Serum 02/25/2015 11:1 3 AM WAITER/WAITRESS TAVERN Katherine Flynn Quang PA LAB BLOOD ORDERABLES Final Result Performing Organization Address [facility] de Phone Number HISTORICAL RESULTS * (ABNORMAL) Blood cell count (CBC) (02/25/2015 11:13 AM WAITER/WAITRESS TAVERN) WBC 8.4 3.8 - 9.8 K/cumm HISTORICAL RESULTS RBC 4.41(L) 4.50 - 5.70 M/cumm HISTORICAL RESULTS Hgb 12.9(L) 13.8 - 17.2 g/dl HISTORICAL RESULTS Hct 39.9(L) 40.7 - 50.3 % HISTORICAL RESULTS MCV 90.6 80.0 - 97.6 fl HISTORICAL RESULTS MCH 29.1 26.7 - 33.7 pg HISTORICAL RESULTS MCHC 32.2(L) 32.7 - 35.5 g/dl HISTORICAL RESULTS Rdw 14.9(H) 11.8 - 14.6 % HISTORICAL RESULTS Platelets 424 140 - 440 K/cumm HISTORICAL RESULTS MPV 7.8 6.8 - 10.4 fl HISTORICAL RESULTS Neutrophils 66.6 38.7 - 74.5 % HISTORICAL RESULTS Lymphocytes 22.0 20.0 - 54.3 % HISTORICAL RESULTS Monos 8.3 4.3 - 13.5 % HISTORICAL RESULTS Eosinophils 2.7 0.0 - 6.0 % HISTORICAL RESULTS Basophils 0.4 0.0 - 3.0 % HISTORICAL RESULTS Neutrophils, abs 5.6 1.8 - 6.6 K/cumm HISTORICAL RESULTS Lymphocytes, abs 1.9 1.2 - 3.3 K/cumm HISTORICAL RESULTS Monocytes, absolute 0.7 0.2 - 1.2 K/cumm HISTORICAL RESULTS Eosinophils, abs 0.2 0.0 - 0.5 K/cumm HISTORICAL RESULTS Basophils, abs 0.0 0.0 - 0.2 K/cumm HISTORICAL RESULTS Blood specimen (specimen) 02/25/2015 11:13 AM WAITER/WAITRESS TAVERN Katherine ESQUIVEL LAB BLOOD ORDERABLES Final Result HISTORICAL RESULTS * DISCHARGE LABORATORY CUMULATIVE REPORT (02/25/2015) Narrative 02/25/2015 Ordered by an unspecified provider. Historical Provider LAB BLOOD ORDERABLES Casi l Result documented in this encounter Visit Diagnoses Diagnosis Abdominal pain Abdominal pain, unspecified site documented in this encounter Care Teams Policy Specialist Relationship Specialty Start Date End Date Ching, Kraig L., MD [address] [address] PCP - General 01/22/09 07/09/16 documented as of this encounter
--- OUTSIDE RECORDS SUMMARY | 2024-03-31 05:04 | XMS_ITS | Encounter Summary ---
Author Organization [facility] Address [address] [place] [address] Care Team Providers Care Mangle Tender Name Role Phone Kraig Ching MD Primary Care Provider [phone] Encounter Details Date Type Department Care Team (Late st Contact Info) Description 10/25/2017 Orders Only [facility] [address] 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 60 tablet 11 10/25/2017 10/13/2018 documented in this encounter Plan of Treatment Not on file documented as of this encounter Visit Diagnoses Not on filedocumented in this encounter Discontinued Medications Medication Sig Discontinue Reason Start Date End Da te metFORMIN (GLUCOPHAGE) 1,000 mg tablet Take 1,000 mg by mouth 2 (two) times a day with meals. Dose adjustment 10/25/2017 metFORMIN (GLUCOPHAGE) 1,000 mg tablet TAKE 1 TABLET BY MOUTH TWICE DAILY 09/13/2017 10/16/2017 documented as of this encounter Care Teams Mangle Tender Relationship Specialty Start Date End Date Kraig Ching MD [address] [place] [address] PCP - General 07/10/16 documented as of this encounter
--- OUTSIDE RECORDS SUMMARY | 2024-03-31 05:04 | XMS_ITS | Encounter Summary ---
Author Organization [facility] Address [address] [place] [address] Care Team Providers Care Fire Boat Engineer Name Role Phone Kraig Ching MD Primary Care Provider [phone] Reason for Visit * Reason Comments Follow-up Encounter Details Date Type Department Care Team (Late st Contact Info) Description 01/15/2017 10:15 AM CDT Office Visit [facility] [address] [place] [phone] Kraig Ching MD [address] [facility] [address] [place], [place] [id number] Essential hypertension (Primary Dx); Type 2 diabetes mellitus with other specified complication, without long-term current use of insulin (CMS/HCC); Hyperlipidemia associated with type 2 diabetes mellitus (CMS/HCC); Adjustment disorder, unspecified type; Therapeutic drug monitoring; BMI 28.0-28.9,adult; Encounter for screening Social History Tobacco Use Types Packs/Day Years Used Date Smoking Tobacco: Heavy Smoker Cigarettes Last attempted t o quit: 04/12/2004 Comments:Smoking History Pac ks/day: 10 Cigarettes Alcohol Use Standard Drinks/Week Comments Yes 0 (1 standard drink = 0.6 oz pur e alcohol) Sex and Gender Information Value Date Recorded Sex Assigned at Not on file 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 Gender Identity Not on file Sexual Orientation Not on file documented as of this encounter Last Filed Vital Signs Vital Sign Reading Time Taken Comments Blood Pressure 146/72 01/15/2017 10:04 AM CDT Pulse 82 01/15/2017 10:04 AM CDT Temperature 36.7 ??C (98.1 ??F) 01/15/2017 10:04 AM C DT Respiratory Rate 16 01/15/2017 10:04 AM CDT Oxygen Saturation 96% 01/15/2017 10:04 AM CDT Inhaled Oxygen Concentration - - Weight 89.4 kg (197 lb) 01/15/2017 10:04 AM CDT Height 177.8 cm (5' 10 ) 01/15/2017 10:04 AM CDT Body Mass Index 28.27 01/15/2017 10:04 AM CDT documented in this encounter Ordered Prescriptions Prescription Sig Dispense Quantity Refills Last Filled Start Date End Date sertraline (ZOLOFT) 50 mg tablet Take 1 tablet (50 mg total) by mouth daily. 30 tablet 11 01/15/2017 03/02/2017 documented in this encounter Progress Notes * Kraig Ching MD - 01/15/2017 10:15 AM CDT Subjective/Objective Patient ID: David Wei is a 76 y.o. male. Chief Complaint Follow-up HPI HTN. He is prescribed amlodipine and lisinopril. 2.D.M. He reports compliance with medication. He is prescribed zetia and fenofibrate for hyperlipidemia. 3.Mood. He notes worse mood for several months. He has had recent of a close friend. Review of Systems Constitutional: Negative. HENT: Negative for sore throat. Eyes: Negative for visual disturbance. Respiratory: Negative for shortness of breath. Cardiovascular: Negative for chest pain. Gastrointestinal: Negative for abdominal pain. Genitourinary: Negative for hematuria. Musculoskeletal: Positive for arthralgias and back pain. Skin: Negative for rash. Neurological: Negative for dizziness. BP 146/72 (BP Location: Right arm, Patient Position: Sitting) Pulse 82 Temp 36.7 ??C (98.1 ??F) Resp 16 Ht 177.8 cm (5' 10 ) Wt 89.4 kg (197 lb) SpO2 96% BMI 28.27 kg/m?? Physical Exam Constitutional: He appears well-developed. HENT: Head: Normocephalic. Eyes: Pupils are equal, round, and reactive to light. Neck: Neck supple. Cardiovascular: Normal rate and regular rhythm. Pulmonary/Chest: Effort normal and breath sounds normal. Feet: Right Foot: Protective Sensation: 2 sites tested. 2 sites sensed. Skin Integrity: Positive for callus. Negative for ulcer. Left Foot: Protective Sensation: 2 sites tested. 2 sites sensed. Skin Integrity: Positive for callus. Neurological: He is alert. Skin: Skin is warm. Assessment/Plan Diagnoses and all orders for this visit: 1. Essential hypertension (Primary) Assessment & Plan: Hypertension is mildly elevated. Continue current regimen. Removed low sodium diet. 2. Type 2 diabetes mellitus with other specified complication, without long-term current use of insulin (CMS/HCC) Assessment & Plan: Continue current regimen. Advised annual eye exam. Reviewed proper diet. Continue statin therapy. Orders: - Hemoglobin A1c; Future - Microalbumin / creatinine ratio, urine, random; Future 3. Hyperlipidemia associated with type 2 diabetes mellitus (CMS/HCC) Assessment & Plan: Reviewed proper diet. Continue statin therapy. Orders: - Lipid panel; Future 4. Adjustment disorder, unspecified type Start sertraline. 5. Therapeutic drug monitoring - Comprehensive metabolic panel with glucose; Future - CBC without differential; Future 6. BMI 28.0-28.9,adult 7. Encounter for screening Other orders - sertraline (ZOLOFT) 50 mg tablet; Take 1 tablet (50 mg total) by mouth daily. documented in this encounter Miscellaneous Notes * Assessment & Plan Note - Kraig Ching MD - 01/15/2017 6:44 AM CDT Associated Problem(s): Type 2 diabetes mellitus without complication, with long-term current use ofinsulin (CMS/HCC) (HCC) (Resolved 10/02/2023) Continue current regimen. Advised annual eye exam. Reviewed proper diet. Continue statin therapy. * Assessment & Plan Note - Kraig Ching MD - 01/15/2017 6:44 AM CDT Associated Problem(s): Hyperlipidemia associated with type 2 diabetes mellitus (HCC) Reviewed proper diet. Continue statin therapy. * Assessment & Plan Note - Kraig Ching MD - 01/15/2017 6:44 AM CDT Associated Problem(s): Hypertension Reviewed proper diet. Continue statin therapy. documented in this encounter Plan of Treatment Not on file documented as of this encounter Procedures Procedure Name Priority Date/Time Associated Diagnosis Comments DIABETES EYE EXAM Routine 06/22/2016 documented in this encounter Results * (ABNORMAL) CBC without differential (01/15/2017 10:50 AM CDT) WBC 9.08 3.80 - 9.90 K/cumm [facility] RBC 4.64 4.30 - 5.80 M/cumm [facility] Hgb 13.5 13.0 - 17.5 g/dL [facility] Hct 40.4 38.9 - 50.3 % [facility] MCV 87.1 81.3 - 96.4 fL [facility] MCH 29.1 27.1 - 33.3 pg [facility] MCHC 33.4 32.3 - 35.7 g/dL [facility] RDW CV 13.7 11.1 - 14.9 % [facility] RDW SD 43.8 35.7 - 48.1 fL [facility] NRBC 0.0 0.0 - 0.2 % [facility] NRBC abs 0.00 0.00 - 0.01 K/cumm [facility] Plt 466(H) 150 - 400 K/cumm [facility] MPV 9.4 9.1 - 12.3 fL [facility] Blood specimen (specimen) 01/15/2017 10:50 AM CDT 01/15/2017 11:53 AM CDT us Kraig Ching MD LAB BLOOD ORDERABLES Final Re sult [facility] [place] [address] * (ABNORMAL) Microalbumin / creatinine ratio, urine, random (01/15/2017 10:50 AM CDT) Microalbumin, ur 30.7 mcg/mL [facility] Creatinine, ur 55.10 mg/dL [facility] Microalbumin/c reat ratio 55.7(H) 0.1 - 29.9 mcg/mg Cr [facility] Urine 01/15/2017 10:5 0 AM CDT 01/15/2017 11:53 AM CDT Kraig Ching MD LAB URINE ORDERABLES Final Re sult Performing Organization Address [facility] de Phone Number [facility] [address] [place] [address] * (ABNORMAL) Hemoglobin A1c (01/15/2017 10:50 AM CDT) Pathologist [facility] Hgb A1C 7.2(H) 4.0 - 6.0 % [facility] Estimated Average Glucose 160 mg/dL [facility] Comment: The ADA recommends reporting an estimated Average Glucose (eAG) with all Hemoglobin A1c results using the equation derived from a study of 507 normal and diabetic adults. ??Minority populations were underrepresented and children were not included. ?? (Diabetes Care 31:5291-7867, 2008). ??The eAG is not equivalent to a fasting glucose. Blood specimen (specimen) 01/15/2017 10:50 AM CDT 01/15/2017 11:53 AM CDT Kraig Ching MD LAB BLOOD ORDERABLES Final Re sult Performing Organization Address [facility] de Phone Number [facility] [address] [place] [address] * (ABNORMAL) Lipid panel (01/15/2017 10:50 AM CDT) Cholesterol 217(H) 30 - 200 mg/dL [facility] Comment: Interpretive Data Desirable: ?<200 mg/dL Borderline high: ??200-239 mg/dL High: ? > or = 240 mg/dL Literature Reference: National Cholesterol Education Program (NCEP) Expert Panel on Detection, Evaluation, and Treatment of High Blood Cholesterol in Adults (Adult Treatment Panel III). ??Circulation 2004; 110:227. Current interpretive data was last revised on 2015. Triglycerides 182(H) 0 - 150 mg/dL [facility] Comment: [...] was last revised on 2015. LDL, calculated 144(H) 10 - 129 mg/dL [facility] Comment: Interpretive Data Optimal: ? < 100 mg/dL Near Optimal: ?100 - 129 mg/dL Borderline High: ?? 130 - 159 mg/dL High: ?160 - 189 mg/dL Very high: ? > or = 190 mg/dL Literature Reference: See Cholesterol Current interpretive data was last revised on 2015. Non-HDL Cholesterol 180 mg/dL [facility] Comment: Interpretive Data When triglycerides are >200 mg/dL, non-HDL C is a secondary target of therapy, with a goal 30 mg/dL higher than the identified LDL-C goal. Reference: ??See Cholesterol Reference. Current interpretive data was last revised 2015. Blood specimen (specimen) 01/15/2017 10:50 AM CDT 01/15/2017 11:53 AM CDT Kraig Ching MD LAB BLOOD ORDERABLES Final Re sult [facility] [place] [address] * DIABETES EYE EXAM (06/22/2016) Diabetic Eye Exam Abnormal Historical Provider HEALTH MAINTENANCE Final Result documented in this encounter Visit Diagnoses Diagnosis Essential hypertension- Primary Unspecified essential hypertension Type 2 diabetes mellitus with other specified complication, without long-term current use of insulin (HCC) Hyperlipidemia associated with type 2 diabetes mellitus (HCC) Adjustment disorder, unspecified type Therapeutic drug monitoring Encounter for therapeutic drug monitoring BMI 28.0-28.9,adult Encounter for screening documented in this encounter Care Teams Fire Boat Engineer Relationship Specialty Start Date End Date Kraig Ching MD [address] [place] [address] PCP - General 07/10/16 documented as of this encounter
--- OUTSIDE RECORDS SUMMARY | 2024-03-31 05:04 | XMS_ITS | Encounter Summary ---
Author Organization [facility] Address [address] [place] [address] Care Team Providers Care Application Packaging Specialist Name Role Phone Kraig Ching MD Primary Care Provider [phone] Reason for Visit * Reason Comments Hospital Follow Up c/o SOB, COPD, Afib Encounter Details Date Type Department Care Team (Late st Contact Info) Description 10/22/2017 8:00 AM CDT Office Visit [facility] [address] [place] [id number] Katherine Del Rio PA [address] [place], [place] [id number] PAF (paroxysmal atrial fibrillation) (CMS/HCC) (Primary Dx); Chronic obstructive pulmonary disease, unspecified COPD type (CMS/HCC); Stage 3 chronic kidney disease; BMI 27.0-27.9,adult Social History Tobacco Use Types Packs/Day Years Used Date Smoking Tobacco: Heavy Smoker Smokeless Tobacco: Never Comments:Smoking History Pac ks/day: 10 Cigarettes Alcohol Use Standard Drinks/Week Comments Yes 0 (1 standard drink = 0.6 oz pur e alcohol) Sex and Gender Information Value Date Recorded Sex Assigned at Not on file 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 Gender Identity Not on file Sexual Orientation Not on file documented as of this encounter Last Filed Vital Signs Vital Sign Reading Time Taken Comments Blood Pressure 114/70 10/22/2017 8:09 AM CDT Pulse 80 10/22/2017 8:09 AM CDT Temperature 37 ??C (98.6 ??F) 10/22/2017 8:09 AM CDT Respiratory Rate 17 10/22/2017 8:09 AM CDT Oxygen Saturation 94% 10/22/2017 8:09 AM CDT Inhaled Oxygen Concentration - - Weight 86.2 kg (190 lb) 10/22/2017 8:09 AM CDT Height 177.8 cm (5' 10 ) 10/22/2017 8:09 AM CDT Body Mass Index 27.26 10/22/2017 8:09 AM CDT documented in this encounter Progress Notes * Katherine Del Rio PA - 10/22/2017 8:00 AM CDT Subjective/Objective Patient ID: David Wei is a 76 y.o. male. Chief Complaint Hospital Follow Up (c/o SOB, COPD, Afib ) He is here today for hospital follow up. He was admitted to [facility] with a 2 day history of worsening chest heaviness, SOB and wheezing. ED labs showed elevated trops (0.08) which remained stable on repeat, BNP = 3070 and Cr =1.6. CXR was normal and EKG showed NSR with 1st degree AV block. During his hospital stay, D-dimer was slightly elevated (0.5) and V-Q showed intermediate probability for PE and revealed COPD. Venous dopplers were negative for DVT and echo was normal with an EF =55. He was started on lovenox and discharged on xarelto. COPD was treated with nebulizer treatmentsand oral steroids and he was discharged on symbicort. Cardiology was consulted who diagnosed NSTEMIand HFpEF. He was treated with IV lasix until his cr bumped to 2. During this stay he had an episode of a fib which was managed with diltiazem which was continued at discharge. Renal US showed hypoechoic lesions of both kidneys. He has felt well since discharge. No chest pain, SOB/GARCIA, palpitations, PND, LE swelling or wheezing. Review of Systems Constitutional: Negative for chills, fatigue and fever. HENT: Negative for congestion. Eyes: Negative for visual disturbance. Respiratory: Negative for cough, chest tightness, shortness of breath and wheezing. Cardiovascular: Negative for chest pain, palpitations and leg swelling. Gastrointestinal: Negative for abdominal pain, blood in stool and nausea. Genitourinary: Negative for dysuria. Musculoskeletal: Negative for arthralgias. Skin: Negative for rash. Allergic/Immunologic: Negative for environmental allergies. Neurological: Negative for dizziness, weakness and headaches. Hematological: Negative for adenopathy. Psychiatric/Behavioral: Negative for dysphoric mood and sleep disturbance. The patient is not nervous/anxious. BP 114/70 (BP Location: Right arm, Patient Position: Sitting) Pulse 80 Temp 37 ??C (98.6 ??F) Resp 17 Ht 177.8 cm (5' 10 ) Wt 86.2 kg (190 lb) SpO2 94% BMI 27.26 kg/m?? Physical Exam Constitutional: He is oriented to person, place, and time. He appears well- developed and well-nourished. HENT: Head: Normocephalic and atraumatic. Right Ear: Tympanic membrane, external ear and ear canal normal. Left Ear: Tympanic membrane, external ear and ear canal normal. Nose: No mucosal edema. Mouth/Throat: Oropharynx is clear and moist. Eyes: Conjunctivae and EOM are normal. Pupils are equal, round, and reactive to light. Neck: Normal range of motion. Neck supple. No thyromegaly present. Cardiovascular: Normal rate, regular rhythm, S1 normal, S2 normal and intact distal pulses. Pulses: Dorsalis pedis pulses are 2+ on the right side, and 2+ on the left side. Posterior tibial pulses are 2+ on the right side, and 2+ on the left side. Pulmonary/Chest: Effort normal and breath sounds normal. He has no wheezes. Abdominal: Soft. Bowel sounds are normal. He [...] No cranial nerve deficit or sensory deficit. Gait normal. Skin: Skin is warm and dry. Capillary refill takes less than 2 seconds. No rash noted. Psychiatric: He has a normal mood and affect. His behavior is normal. Judgment normal. Vitals reviewed. Assessment/Plan Diagnoses and all orders for this visit: PAF (paroxysmal atrial fibrillation) (CMS/HCC) (Primary) Comments: Rate controlled. Continue diltiazem. CHADS-VAS = 6-7. Continue xeralto. Orders: - Basic metabolic panel; Future Chronic obstructive pulmonary disease, unspecified COPD type (CMS/HCC) - Pulmonary Function Test -[facility] Adult PFT Lab- [facility]; Standard; Spirometry, Spirometry w/bronchodilator, DLCO and Lung Volumes; Future Stage 3 chronic kidney disease - Ambulatory referral to Nephrology; Future [facility] Cosigned by Kraig Ching MD at 10/25/2017 9:30 AM CDT documented in this encounter Plan of Treatment Not on file documented as of this encounter Results * (ABNORMAL) Basic metabolic panel (10/22/2017 10:11 AM CDT) Sodium 135 135 - 145 mmol/L [facility] Potassium, pl 4.5 3.3 - 4.9 mmol/L [facility] Chloride 99 97 - 110 mmol/L [facility] CO2 28 22 - 32 mmol/L [facility] Anion gap 8 2 - 15 mmol/L [facility] BUN 24 8 - 25 mg/dL [facility] Creatinine 1.81(H) 0.80 - 1.30 mg/dL [facility] Glucose 124 70 - 199 mg/dL [facility] Comment: [...] 9.7 8.5 - 10.3 mg/dL [facility] Blood specimen (specimen) 10/22/2017 10:11 AM CDT 10/22/2017 11:53 AM CDT Rich RICK [facility] - 10/22/2017 12:38 PM CDT Katherine ESQUIVEL LAB BLOOD ORDERABLES Final Result [facility] [address] [facility] Department [place] [address] documented in this encounter Visit Diagnoses Diagnosis PAF (paroxysmal atrial fibrillation) (CMS/HCC) ([facility])- Primary Atrial fibrillation Chronic obstructive pulmonary disease, unspecified COPD type ([facility]) Stage 3 chronic kidney disease ([facility]) BMI 27.0-27.9,adult documented in this encounter Historical Medications * This list may reflect changes made after this encounter. rivaroxaban (XARELTO) 15 mg tablet Take 15 mg by mouth daily. 8 predniSONE (DELTASONE) 10 mg tablet Take 10 mg by mouth daily. Take 30mg tabs daily for 2 days, then 20mg tabs for 2 days, then 10mg tabs for 2 days, then off 8 levalbuterol (XOPENEX HFA) 45 mcg/actuation inhaler Inhale 1-2 puffs every 6 (six) hours as needed for wheezing. 9 rosuvastatin (CRESTOR) 20 mg tablet Take 20 mg by mouth daily. 8 diltiaZEM (CARDIZEM) 120 mg tablet Take 120 mg by mouth daily. 8 budesonide-formo terol (SYMBICORT) 80-4.5 mcg/actuation inhaler Inhale 2 puffs 2 (two) times a day. Rinse mouth with water after use to reduce aftertaste and incidence of candidiasis. Do not swallow. 8 travoprost, benzalkonium, (TRAVATAN) 0.004 % ophthalmic solution 1 drop nightly. 8 metFORMIN (GLUCOPHAGE) 1,000 mg tablet Take 1,000 mg by mouth 2 (two) times a day with meals. 8 added in this encounter Care Teams Application Packaging Specialist Relationship Specialty Start Date End Date Kraig Ching MD [address] [place] [address] PCP - General 07/10/16 documented as of this encounter
--- OUTSIDE RECORDS SUMMARY | 2024-03-31 05:04 | XMS_ITS | Encounter Summary ---
Author Organization [facility] Address [address] [place] [address] Care Team Providers Care Patent Drafter Name Role Phone Kraig Ching MD Primary Care Provider [phone] Encounter Details Date Type Department Care Team (Late st Contact Info) Description 11/25/2017 10:15 AM CDT Office Visit [facility] [address] [place] [address] Kraig Ching MD [address] [place], [place] [id number] Type 2 diabetes mellitus with stage 3 chronic kidney disease, without long-term current use of insulin (CMS/HCC) (Primary Dx); Stage 3 chronic kidney disease; Hypertensive kidney disease with chronic kidney disease stage III; PAF (paroxysmal atrial fibrillation) (CMS/HCC); Hyperlipidemia associated with type 2 diabetes mellitus (CMS/HCC); Duodenal ulcer; Encounter for screening; Therapeutic drug monitoring; BMI 28.0-28.9,adult Social History Tobacco Use Types Packs/Day Years Used Date Smoking Tobacco: Heavy Smoker Smokeless Tobacco: Never Comments:Smoking History Pac ks/day: 10 Cigarettes Alcohol Use Standard Drinks/Week Comments Yes 0 (1 standard drink = 0.6 oz pur e alcohol) Sex and Gender Information Value Date Recorded Sex Assigned at Not on file 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 Gender Identity Not on file Sexual Orientation Not on file documented as of this encounter Last Filed Vital Signs Vital Sign Reading Time Taken Comments Blood Pressure 138/70 11/25/2017 9:49 AM CDT Pulse 66 11/25/2017 9:49 AM CDT Temperature 36.7 ??C (98 ??F) 11/25/2017 9:49 AM CDT Respiratory Rate - - Oxygen Saturation 96% 11/25/2017 9:49 AM CDT Inhaled Oxygen Concentration - - Weight 88.5 kg (195 lb) 11/25/2017 9:49 AM CDT Height 177.8 cm (5' 10 ) 11/25/2017 9:49 AM CDT Body Mass Index 27.98 11/25/2017 9:49 AM CDT documented in this encounter Ordered Prescriptions Prescription Sig Dispense Quantity Refills Last Filled Start Date End Date SITagliptin (JANUVIA) 25 mg tabletIndications: type 2 diabetes mellitus Take 1 tablet (25 mg total) by mouth daily. 30 tablet 11 11/25/2017 11/11/2018 documented in this encounter Progress Notes * Kraig Ching MD - 11/25/2017 10:15 AM CDT Subjective/Objective Patient ID: David Wei is a 77 y.o. male. Chief Complaint Follow-up HPI 1.D.M. He reports compliance with medications. His last HgBA1C was 7.3. He has been evaluated by nephrology for CKD. Lisinopril was restarted. Diabetes is complicated by hyperlipidemia. His statin was stopped during his hospitalization. He notes sugars have been as high as 170. 2.HTN. He is prescribed diltiazem and lisinopril. He has CKD. 3.Atrial Fibrillation. He is prescribed diltiazem. His Xarelto was held during hospitalization for GI bleed. 4.Duodenal Ulcer. He reports compliance with pantoprazole. He denies melena. Review of Systems Constitutional: Negative. HENT: Negative for sore throat. Eyes: Negative for visual disturbance. Respiratory: Negative for shortness of breath. Cardiovascular: Negative for chest pain. Gastrointestinal: Negative for abdominal pain. Genitourinary: Negative for hematuria. Musculoskeletal: Positive for arthralgias. Skin: Negative for rash. Neurological: Negative for dizziness. BP 138/70 (BP Location: Left arm, Patient Position: Sitting) Pulse 66 Temp 36.7 ??C (98 ??F) (Oral) Ht 177.8 cm (5' 10 ) Wt 88.5 kg (195 lb) SpO2 96% BMI 27.98 kg/m?? Physical Exam Constitutional: He appears well-developed. [...] disease, without long-term current use of insulin ([facility]) (Primary) Assessment & Plan: Continue current regimen and add Januvia.Advised annual eye exam. Limit nephrotoxins. Monitor creatinine. Avoid NSAIDS. Orders: - Hemoglobin A1c; Future - SITagliptin (JANUVIA) 25 mg tablet; Take 1 tablet (25 mg total) by mouth daily. Stage 3 chronic kidney disease Assessment & Plan: Limit nephrotoxins. Monitor creatinine. Avoid NSAIDS. Hypertensive kidney disease with chronic kidney disease stage III Assessment & Plan: Limit nephrotoxins. Monitor creatinine. Avoid NSAIDS. PAF (paroxysmal atrial fibrillation) ([facility]) Assessment & Plan: Continue Diltiazem. Await EGD to determine plan for reinitiating aspirin. Orders: - Ambulatory referral to Cardiology; Future Hyperlipidemia associated with type 2 diabetes mellitus ([facility]) Assessment & Plan: He had myalgias on statin. Resume Zetia. Orders: - Lipid panel; Future Duodenal ulcer Assessment & Plan: Reviewed GI note . Continue pantoprazole. Avoid NSAIDS. Refer for EGD. Orders: - EGD -[facility]; Future Encounter for screening Therapeutic drug monitoring - Comprehensive metabolic panel; Future - CBC without differential; Future BMI 28.0-28.9,adult documented in this encounter Miscellaneous Notes * Assessment & Plan Note - Kraig Ching MD - 11/25/2017 7:09 AM CDT Associated Problem(s): Hyperlipidemia associated with type 2 diabetes mellitus ([facility]) He had myalgias on statin. Resume Zetia. * Assessment & Plan Note - Kraig Ching MD - 11/25/2017 7:09 AM CDT Associated Problem(s): Hypertensive kidney disease with chronic kidney disease stage III ([facility]) Limit nephrotoxins. Monitor creatinine. Avoid NSAIDS. * Assessment & Plan Note - Kraig Ching MD - 11/25/2017 7:07 AM CDT Associated Problem(s): Chronic kidney disease, stage 3b ([facility]) Limit nephrotoxins. Monitor creatinine. Avoid NSAIDS. * Assessment & Plan Note - Kraig Ching MD - 11/25/2017 7:05 AM CDT Associated Problem(s): Type 2 diabetes mellitus without complication, with long-term current use ofinsulin ([facility]) (HCC) (Resolved 10/02/2023) Continue current regimen and add Januvia.Advised annual eye exam. Limit nephrotoxins. Monitor creatinine. Avoid NSAIDS. * Assessment & Plan Note - Kraig Ching MD - 11/25/2017 7:04 AM CDT Associated Problem(s): Duodenal ulcer Reviewed GI note . Continue pantoprazole. Avoid NSAIDS. Refer for EGD. * Assessment & Plan Note - Kraig Ching MD - 11/25/2017 7:04 AM CDT Associated Problem(s): PAF (paroxysmal atrial fibrillation) (CMS/HCC) (HCC) Continue Diltiazem. Await EGD to determine plan for reinitiating aspirin. documented in this encounter Plan of Treatment Not on file documented as of this encounter Results * (ABNORMAL) CBC without differential (11/25/2017 10:33 AM CDT) WBC 9.4 3.8 - 9.9 K/cumm [facility] Hgb 11.1(L) 13.0 - 17.5 g/dL [facility] Hct 35.7(L) 38.9 - 50.3 % [facility] Plt 421(H) 150 - 400 K/cumm [facility] MPV 9.5 9.1 - 12.3 fL [facility] RBC 4.11(L) 4.30 - 5.80 M/cumm [facility] MCV 86.9 81.3 - 96.4 fL [facility] MCH 27.0(L) 27.1 - 33.3 pg [facility] MCHC 31.1(L) 32.3 - 35.7 g/dL [facility] RDW CV 15.5(H) 11.1 - 14.9 % [facility] RDW SD 49.3(H) 35.7 - 48.1 fL [facility] NRBC abs 0.00 0.00 - 0.01 K/cumm [facility] Blood specimen (specimen) 11/25/2017 10:33 AM CDT 11/25/2017 2:32 PM CDT Narrative [facility] - 11/25/2017 2:48 PM CDT Kraig Ching MD LAB BLOOD ORDERABLES Final Re sult [facility] [address] [facility] Department [place] [address] * (ABNORMAL) Comprehensive metabolic panel (11/25/2017 10:33 AM CDT) Sodium 142 135 - 145 mmol/L [facility] Potassium, pl 4.3 3.3 - 4.9 mmol/L [facility] Chloride 104 97 - 110 mmol/L [facility] CO2 26 22 - 32 mmol/L [facility] Anion gap 12 2 - 15 mmol/L [facility] BUN 28(H) 8 - 25 mg/dL [facility] Creatinine 1.50(H) 0.80 - 1.30 mg/dL [facility] Glucose 113 70 - 199 mg/dL [facility] Comment: Interpretive Data Fasting glucose [...] 2017. Calcium 9.4 8.5 - 10.3 mg/dL [facility] Bilirubin, total 0.2 0.1 - 1.2 mg/dL [facility] Protein, pl 7.4 6.5 - 8.5 g/dL [facility] Albumin 4.2 3.5 - 5.0 g/dL [facility] Alk phos 85 40 - 130 Units/L [facility] ALT 16 7 - 55 Units/L [facility] AST 17 10 - 50 Units/L [facility] Blood specimen (specimen) 11/25/2017 10:33 AM CDT 11/25/2017 2:32 PM CDT Narrative [facility] - 11/25/2017 3:07 PM CDT Kraig Ching MD LAB BLOOD ORDERABLES Final Re sult [facility] Department [place] [address] * (ABNORMAL) Hemoglobin A1c (11/25/2017 10:33 AM CDT) Hgb A1C 6.4(H) 4.0 - 5.6 % [facility] Estimated Average Glucose 137 mg/dL [facility] Comment: The ADA recommends reporting an estimated Average Glucose (eAG) with all Hemoglobin A1c results using the equation derived from a study of 507 normal and diabetic adults. ??Minority populations were underrepresented and children were not included. ?? (Diabetes Care 31:3445-5742, 2008). ??The eAG is not equivalent to a fasting glucose. Blood specimen (specimen) 11/25/2017 10:33 AM CDT 11/25/2017 2:32 PM CDT Narrative [facility] - 11/25/2017 2:57 PM CDT Kraig Ching MD LAB BLOOD ORDERABLES Final Re sult Performing Organization Address [facility] Co de Phone Number [facility] Department [place] [address] * (ABNORMAL) Lipid panel (11/25/2017 10:33 AM CDT) Cholesterol 226(H) 30 - 200 mg/dL [facility] Comment: Interpretive Data Desirable: ?<200 mg/dL Borderline high: ??200-239 mg/dL High: ? > or = 240 mg/dL Literature Reference: National Cholesterol Education Program (NCEP) Expert Panel on Detection, Evaluation, and Treatment of High Blood Cholesterol in Adults (Adult Treatment Panel III). ??Circulation 2004; 110:227. Current interpretive data was last revised on 2015. Triglycerides 143 0 - 150 mg/dL [facility] Comment: Interpretive Data Desirable: ? < 150 mg/dL Borderline High: ? 150 - 199 mg/dL High: ?200 - 499 mg/dL Very High: ? > or = 499 mg/dL Literature Reference: See Cholesterol Current interpretive data was last revised on 2015. HDL 40 >=40 mg/dL [facility] Comment: Interpretive Data Less than 40 mg/dL - low; A major risk factor for heart disease. Greater than or equal to 60 mg/dL - High; ??considered protective of heart disease. Literature Reference: See Cholesterol Current interpretive data was last revised on 2015. LDL, calculated 157(H) 10 - 129 mg/dL [facility] Comment: Interpretive Data Optimal: ? < 100 mg/dL Near Optimal: ?100 - 129 mg/dL Borderline High: ?? 130 - 159 mg/dL High: ?160 - 189 mg/dL Very high: ? > or = 190 mg/dL Literature Reference: See Cholesterol Current interpretive data was last revised on 2015. Non-HDL Cholesterol 186 mg/dL [facility] Comment: Interpretive Data When triglycerides are >200 mg/dL, non-HDL C is a secondary target of therapy, with a goal 30 mg/dL higher than the identified LDL-C goal. Reference: ??See Cholesterol Reference. Current interpretive data was last revised 2015. Blood specimen (specimen) 11/25/2017 10:33 AM CDT 11/25/2017 2:32 PM CDT Narrative [facility] - 11/25/2017 3:07 PM CDT us Kraig Ching MD LAB BLOOD ORDERABLES Final Re sult [facility] Department [place] [address] documented in this encounter Visit Diagnoses Diagnosis Type 2 diabetes mellitus with stage 3 chronic kidney disease, without long-term current use of insulin (HCC)- Primary Stage 3 chronic kidney disease (HCC) Hypertensive kidney disease with chronic kidney disease stage III (HCC) Unspecified hypertensive kidney disease with chronic kidney disease stage I through stage IV, or unspecified PAF (paroxysmal atrial fibrillation) (CMS/HCC) (HCC) Atrial fibrillation Hyperlipidemia associated with type 2 diabetes mellitus (HCC) Duodenal ulcer Encounter for screening Therapeutic drug monitoring Encounter for therapeutic drug monitoring BMI 28.0-28.9,adult documented in this encounter Discontinued Medications Medication Sig Discontinue Reason Start Date End Da te rivaroxaban (XARELTO) 15 mg tablet Take 15 mg by mouth daily. Therapy completed 11/25/2017 aspirin (ASPIR-81) 81 mg tablet take 1 tablet by oral route every day Side effects 06/07/2013 11/25/2017 documented as of this encounter Care Teams Patent Drafter Relationship Specialty Start Date End Date Kraig Ching MD [address] [place] [address] PCP - General 07/10/16 documented as of this encounter
--- OUTSIDE RECORDS SUMMARY | 2024-03-31 05:04 | XMS_ITS | Encounter Summary ---
Author Organization [facility] Address [address] [place] [address] Phone Care Team Providers Care Coater Name Role Phone Kraig Ching MD Primary Care Provider [phone] Encounter Details Date Type Department Care Team (Late st Contact Info) Description 11/16/2017 Orders Only [facility] Scheduling [address] [place] [address] Bella Mann CMA Social History Tobacco Use Types Packs/Day Years Used Date Smoking Tobacco: Heavy Smoker Smokeless Tobacco: Never Comments:Smoking History Pac ks/day: 10 Cigarettes Alcohol Use Standard Drinks/Week Comments Yes 0 (1 standard drink = 0.6 oz pur e alcohol) Sex and Gender Information Value Date Recorded Sex Assigned at Not on file 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 pantoprazole DR (PROTONIX) 40 mg EC tablet TK 1 T PO D 0 11/04/2017 12/02/2017 OY[employer] CALCIUM 500 500 mg calcium (1,250 mg) tablet TK 1 T PO QAM 0 11/04/2017 11/18/2017 added in this encounter Care Teams Coater Relationship Specialty Start Date End Date Kraig Ching MD [address] [place] [address] PCP - General 07/10/16 documented as of this encounter
--- OUTSIDE RECORDS SUMMARY | 2024-03-31 05:04 | XMS_ITS | Encounter Summary ---
Author Organization [facility] Facility Care Team Providers Care Production Maintenance Mechanic Name Role Phone Kraig Ching MD Primary Care Provider [phone] Encounter Details Date Type Department Care Team (Late st Contact Info) Description 03/09/2016 2:40 PM CONDENSER SETTER - 03/09/2016 11:59 PM [facility] Hospital Encounter [facility] WITH [facility] Kraig Ching MD [address] [id number] Type 2 diabetes mellitus with other specified complication (CMS/HCC); Essential (primary) hypertension Social History Tobacco Use Types Packs/Day Years Used Date Smoking Tobacco: Heavy Smoker Cigarettes Last attempted t o quit: 04/12/2004 Comments:Smoking History Pac ks/day: 10 Cigarettes Alcohol Use Standard Drinks/Week Comments Yes 0 (1 standard drink = 0.6 oz pur e alcohol) Sex and Gender Information Value Date Recorded Sex Assigned at Not on file 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 30 6 02/26/2012 8 aspirin (ASPIR-81) 81 mg tablet take 1 tablet by oral route every day 0 0 06/07/2013 8 blood glucose diagnostic (SURESTEP TEST) strip Test sugars two times per day as directed 100 3 09/12/2007 8 cyclobenzaprine (FLEXERIL) 10 mg tablet take 1 tablet by oral route 2 times every day 30 0 06/20/2013 8 dapagliflozin (FARXIGA) 5 mg tablet TAKE 1 TABLET BY MOUTH EVERY DAY IN THE MORNING 30 5 10/02/2015 7 ezetimibe (ZETIA) 10 mg tablet take 1 tablet by oral route every day 30 2 03/09/2016 8 fenofibrate nanocrystallized (TRICOR,TRIGLIDE) 145 mg tablet TAKE ONE BY MOUTH ONE TIME PER DAY 30 10 12/05/2015 7 lisinopril (PRINIVIL,ZESTRIL) 40 mg tablet TAKE ONE BY MOUTH ONE TIME PER DAY 90 3 02/26/2007 7 metFORMIN (GLUCOPHAGE) 1,000 mg tablet TAKE 1 TABLET BY MOUTH TWICE DAILY 180 5 02/26/2007 8 potassium chloride ER (KLOR-CON,K-DUR) 20 mEq CR tablet TAKE 1 TABLET BY MOUTH EVERY MORNING 30 5 06/12/2007 8 documented as of this encounter Plan of Treatment Not on file documented as of this encounter Procedures Procedure Name Priority Date/Time Associated Diagnosis Comments SERUM GLUCOSE Routine 03/09/2016 2:47 PM CONDENSER SETTER PLASMA BASIC METABOLIC PANEL Routine 03/09/2016 2:47 PM CONDENSER SETTER BLOOD HEMOGLOBIN A1C Routine 03/09/2016 2:47 PM CONDENSER SETTER BLOOD CELL COUNT (CBC) Routine 03/09/2016 2:47 PM CONDENSER SETTER BLOOD CELL MORPHOLOGIC EXAM Routine 03/09/2016 2:47 PM CONDENSER SETTER DISCHARGE LABORATORY CUMULATIVE REPORT 03/09/2016 documented in this encounter Results * (ABNORMAL) Plasma basic metabolic panel (03/09/2016 2:47 PM CONDENSER SETTER) Sodium 140 135 - 145 mmol/L CDR HISTORICAL RESULTS K, pl 3.9 3.3 - 4.9 mmol/L CDR HISTORICAL RESULTS Chloride 103 97 - 110 mmol/L CDR HISTORICAL RESULTS CO2 26 22 - 32 mmol/L CDR HISTORICAL RESULTS A. gap 11 2 - 15 mmol/L CDR HISTORICAL RESULTS BUN 31(H) 8 - 25 mg/dl CDR HISTORICAL RESULTS Creatinine 1.56(H) 0.80 - 1.30 mg/dl CDR HISTORICAL RESULTS Calcium 9.5 8.5 - 10.3 mg/dl CDR HISTORICAL RESULTS Plasma 03/09/2016 2:47 PM CONDENSER SETTER Kraig Ching MD LAB BLOOD ORDERABLES Final Re sult Performing Organization Address [facility] de Phone Number CDR HISTORICAL RESULTS * Serum glucose (03/09/2016 2:47 PM CONDENSER SETTER) Glucose 86 70 - 199 mg/dl CDR HISTORICAL RESULTS Serum 03/09/2016 2:47 PM CONDENSER SETTER Kraig Ching MD LAB BLOOD ORDERABLES Final Re sult Performing Organization Address [facility] de Phone Number CDR HISTORICAL RESULTS * (ABNORMAL) Blood cell count (CBC) (03/09/2016 2:47 PM CONDENSER SETTER) WBC 10.2(H) 3.8 - 9.9 K/cumm CDR HISTORICAL RESULTS RBC 4.66 4.30 - 5.80 M/cumm CDR HISTORICAL RESULTS Hgb 13.1 13.0 - 17.5 g/dl CDR HISTORICAL RESULTS Hct 41.0 38.9 - 50.3 % CDR HISTORICAL RESULTS MCV 88.0 81.3 - 96.4 fl CDR HISTORICAL RESULTS MCH 28.1 27.1 - 33.3 pg CDR HISTORICAL RESULTS MCHC 32.0(L) 32.3 - 35.7 g/dl CDR HISTORICAL RESULTS Rdw 13.5 11.1 - 14.9 % CDR HISTORICAL RESULTS RDW 43.4 35.7 - 48.1 fl CDR HISTORICAL RESULTS Platelets 519(H) 150 - 400 K/cumm CDR HISTORICAL RESULTS MPV 9.5 9.1 - 12.3 fl CDR HISTORICAL RESULTS NRBC 0.0 0.0 - 0.2 % CDR HIST ORICAL RESULTS NRBC, abs 0.00 0.00 - 0.01 K/cumm CDR HISTORICAL RESULTS Blood specimen (specimen) 03/09/2016 2:47 PM CONDENSER SETTER Kraig Ching MD LAB BLOOD ORDERABLES Final [facility] CDR HISTORICAL RESULTS * (ABNORMAL) Blood cell morphologic exam (03/09/2016 2:47 PM CONDENSER SETTER) Neutrophils 66.6 % CDR HIST ORICAL RESULTS Immature granulocytes 0.4 % CDR HISTORICAL RESULTS Lymphocytes 20.4 % CDR HIST ORICAL RESULTS Monos 9.5 % CDR HISTOR ICAL RESULTS Eosinophils 2.5 % CDR HIST ORICAL RESULTS Basophils 0.6 % CDR HISTOR ICAL RESULTS Neutrophils, abs 6.8(H) 1.7 - 6.5 K/cumm CDR HISTORICAL RESULTS Immature granulocyte, abs 0.0 0.0 - 0.1 K/cumm CDR HISTORICAL RESULTS Lymphocytes, abs 2.1 0.8 - 3.3 K/cumm CDR HISTORICAL RESULTS Monocytes, absolute 1.0(H) 0.2 - 0.8 K/cumm CDR HISTORICAL RESULTS Eosinophils, abs 0.3 0.0 - 0.5 K/cumm CDR HISTORICAL RESULTS Basophils, abs 0.1 0.0 - 0.1 K/cumm CDR HISTORICAL RESULTS Blood specimen (specimen) 03/09/2016 2:47 PM CONDENSER SETTER Kraig Ching MD LAB BLOOD ORDERABLES Final [facility] Performing Organization Address City/State/[facility] Co de Phone Number CDR HISTORICAL RESULTS * (ABNORMAL) Blood hemoglobin A1C (03/09/2016 2:47 PM CONDENSER SETTER) Hgb A1C 7.5(H) 4.0 - 6.0 % CDR HISTORICAL RESULTS Estimated average glucose 169 mg/dl CDR HISTORIC AL RESULTS Comment: The ADA recommends reporting an estimated Average Glucose (eAG) with all Hemoglobin A1c results using the equation derived from a study of 507 normal and diabetic adults. ??Minority populations were underrepresented and children were not included. ??(Diabetes Care 31:1967-4310, 2008). ??The eAG is not equivalent to a fasting glucose. Blood specimen (specimen) 03/09/2016 2:47 PM CONDENSER SETTER us Kraig Ching MD LAB BLOOD ORDERABLES Final Re sult CDR HISTORICAL RESULTS * DISCHARGE LABORATORY CUMULATIVE REPORT (03/09/2016) Narrative 03/09/2016 Ordered by an unspecified provider. Historical Provider LAB BLOOD ORDERABLES Casi l Result documented in this encounter Visit Diagnoses Diagnosis Type 2 diabetes mellitus with other specified complication (HCC) Essential (primary) hypertension Unspecified essential hypertension documented in this encounter Care Teams Production Maintenance Mechanic Relationship Specialty Start Date End Date Kraig Ching MD [address] [address] PCP - General 01/22/09 07/09/16 documented as of this encounter
--- OUTSIDE RECORDS SUMMARY | 2024-03-31 05:04 | XMS_ITS | Encounter Summary ---
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 90 tablet 3 8 10/11/19 18 ezetimibe (ZETIA) 10 mg tablet take 1 tablet by oral route every day 30 2 6 11/19/19 18 fenofibrate nanocrystallized (TRICOR,TRIGLIDE) 145 mg tablet Take 1 tablet (145 mg total) by mouth daily. 90 tablet 1 7 11/19/19 18 fenofibrate nanocrystallized (TRICOR,TRIGLIDE) 145 mg tablet TAKE 1 TABLET BY MOUTH EVERY DAY 90 tablet 1 8 11/19/19 18 lisinopril (PRINIVIL,ZESTRIL) 40 mg tablet Take 1 tablet (40 mg total) by mouth daily. 90 tablet 4 7 11/18/19 18 metFORMIN (GLUCOPHAGE) 1,000 mg tablet TAKE 1 [...] Associated Diagnosis Comments DISCHARGE LABORATORY CUMULATIVE REPORT 08/30/2017 12:00 AM CDT documented in this encounter Results * DISCHARGE LABORATORY CUMULATIVE REPORT (08/30/2017 12:00 AM CDT) Narrative 08/30/2017 12:00 AM CDT Ordered by an unspecified provider. us Historical Provider LAB BLOOD ORDERABLES Casi l Result documented in this encounter Visit Diagnoses Not on filedocumented in this encounter Care Teams Manager Math Relationship Specialty Start Date End Date Ching, Kraig L., MD [address] [address] PCP - General 07/10/16 documented as of this encounter
--- OUTSIDE RECORDS SUMMARY | 2024-03-31 05:04 | XMS_ITS | Encounter Summary ---
Author Organization [facility] Address [address] [place] [address] Care Team Providers Care Client Program Manager Name Role Phone Kraig Ching MD Primary Care Provider [phone] Reason for Visit * Reason Onset Date Comments Med Refill 10/25/2017 Encounter Details Date Type Department Care Team (Late st Contact Info) Description 10/25/2017 Telephone [facility] [address] [place] [id number] Elsy Michael MA Med Refill Social History Tobacco Use Types Packs/Day Years Used Date Smoking Tobacco: Heavy Smoker Smokeless Tobacco: Never Comments:Smoking History Pac ks/day: 10 Cigarettes Alcohol Use Standard Drinks/Week Comments Yes 0 (1 standard drink = 0.6 oz pur e alcohol) Sex and Gender Information Value Date Recorded Sex Assigned at Not on file 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 documented in this encounter Plan of Treatment Not on file documented as of this encounter Visit Diagnoses Not on filedocumented in this encounter Care Teams Client Program Manager Relationship Specialty Start Date End Date Kraig Ching MD [address] [facility] [facility] [address] [place], [place] [id number] PCP - General 07/10/16 documented as of this encounter
--- OUTSIDE RECORDS SUMMARY | 2024-03-31 05:04 | XMS_ITS | Encounter Summary ---
Author Organization [facility] Facility Care Team Providers Care Territory Sales Manager Name Role Phone Kraig Ching MD Primary Care Provider [phone] Encounter Details Date Type Department Care Team (Late st Contact Info) Description 02/28/2015 - 02/28/2015 11:59 PM RESTAURANT MANAGING PARTNER Hospital [facility] Katherine Del Rio PA [address] [address] Diverticulosis of large intestine without perforation or abscess without bleeding; Abdominal pain Social History Tobacco Use Types Packs/Day Years Used Date Smoking Tobacco: Heavy Smoker Cigarettes Last attempted t o quit: 04/12/2004 Comments:Smoking History Pac ks/day: 10 Cigarettes Alcohol Use Standard Drinks/Week Comments Yes 0 (1 standard drink = 0.6 oz pur e alcohol) Sex and Gender Information Value Date Recorded Sex Assigned at Not on file Legal Sex Male 4:46 PM RESTAURANT MANAGING PARTNER Gender Identity Not on file Sexual Orientation [...] Name Priority Date/Time Associated Diagnosis Comments CT ABDOMEN PELVIS W CONTRAST Routine 02/28/2015 3:46 PM RESTAURANT MANAGING PARTNER documented in this encounter Results * CT Abdomen Pelvis W Contrast (02/28/2015 3:46 PM RESTAURANT MANAGING PARTNER) Anatomical Region Laterality Modality Body N/A Computed Tomogra phy 02/28/2015 3:46 PM RESTAURANT MANAGING PARTNER Narrative 02/28/2015 4:10 PM RESTAURANT MANAGING PARTNER KEVIN MAKI M.D. FINAL REPORT ACC# ??Date Time ??Exam [id number] Feb 28, 2015 15:46:[id number] Abd & Pelvis with cont EXAMINATION: ?CT abdomen pelvis with intravenous contrast HISTORY: ??Right flank pain TECHNIQUE: ??CT abdomen pelvis after intravenous administration of 94 mL Optiray-350 according to routine protocol without complication. COMPARISON: September 2014 FINDINGS: ?? Lungs Bases: Calcified granulomas. No consolidation. Centrilobular emphysema. No pleural or pericardial effusion. Abdomen: No free air, free fluid, or focal fluid collection. Liver: Normal enhancement of the liver. No focal lesions. Gallbladder and biliary: Cholecystectomy. Normal caliber bile ducts. Spleen: Calcified splenic granulomas. Normal enhancement of the spleen. Pancreas: Homogeneous enhancement of the pancreas. No peripancreatic inflammatory changes, ductal dilatation, or focal lesion. Adrenal glands: Normal adrenal glands. Kidneys: Contrast administration limits evaluation for nephrolithiasis. Normal enhancement of the kidneys. Interpolar left and right renal cysts. No hydroureteronephrosis. No radiopaque calculi given the above limitations. GI tract: Stomach is partially distended with fluid and air. Normal caliber small and large bowel loops. Normal appendix. Moderate colonic diverticulosis without diverticulitis. Vascular structures: Moderate atherosclerosis of the abdominal aorta and its branches. Patent abdominal aorta and side branches. Patent portosplenic confluence, portal veins, and hepatic veins Lymph Nodes: No lymphadenopathy in the abdomen or pelvis. PELVIS: Prostatectomy. Surgical clips in the prostatectomy bed. Post surgical changes of penile prosthesis. Twilight is distended and intact. Mild circumferential bladder wall thickening likely relates to chronic outlet obstruction. Bones and Soft Tissues: No osseous lytic or blastic lesions. Grade 1 anterolisthesis of L4 on L5 secondary to facet arthrosis. Multilevel lumbar spondylosis. Partial anchylosis of the posterior aspect of L5 on S1. IMPRESSION: ?? 1. No acute abdominal or pelvic process. Normal appendix. No hydroureteronephrosis. 2. Diverticulosis without diverticulitis. 3. Mechanical penile prosthesis. Twilight is intact. Requested By: Dictated By: ?? KEVIN MAKI M.D. ??on Feb 28 2015 ??4:10P This document has been electronically signed by: KEVIN MAKI M.D. on Feb 28 2015 ??4:10P [id number] Procedure Note Provider, MD Coleen - 08/07/2016 KEVIN MAKI M.D. FINAL REPORT ACC# Date Time Exam [id number] Feb 28, 2015 15:46:[id number] Abd & Pelvis with cont EXAMINATION: CT abdomen pelvis with intravenous contrast HISTORY: Right flank pain TECHNIQUE: CT abdomen pelvis after intravenous administration of 94 mL Optiray-350 according to routine protocol without complication. COMPARISON: September 2014 FINDINGS: Lungs Bases: Calcified granulomas. No consolidation. Centrilobular emphysema. No pleural or pericardial effusion. Abdomen: No free air, free fluid, or focal fluid collection. Liver: Normal enhancement of the liver. No focal lesions. Gallbladder and biliary: Cholecystectomy. Normal caliber bile ducts. Spleen: Calcified splenic granulomas. Normal enhancement of the spleen. Pancreas: Homogeneous enhancement of the pancreas. No peripancreatic inflammatory changes, ductal dilatation, or focal lesion. Adrenal glands: Normal adrenal glands. Kidneys: Contrast administration limits evaluation for nephrolithiasis. Normal enhancement of the kidneys. Interpolar left and right renal cysts. No hydroureteronephrosis. No radiopaque calculi given the above limitations. GI tract: Stomach is partially distended with fluid and air. Normal caliber small and large bowel loops. Normal appendix. Moderate colonic diverticulosis without diverticulitis. Vascular structures: Moderate atherosclerosis of the abdominal aorta and its branches. Patent abdominal aorta and side branches. Patent portosplenic confluence, portal veins, and hepatic veins Lymph Nodes: No lymphadenopathy in the abdomen or pelvis. PELVIS: Prostatectomy. Surgical clips in the prostatectomy bed. Post surgical changes of penile prosthesis. Twilight is distended and intact. Mild circumferential bladder wall thickening likely relates to chronic outlet obstruction. Bones and Soft Tissues: No osseous lytic or blastic lesions. Grade 1 anterolisthesis of L4 on L5 secondary to facet arthrosis. Multilevel lumbar spondylosis. Partial anchylosis of the posterior aspect of L5 on S1. IMPRESSION: 1. No acute abdominal or pelvic process. Normal appendix. No hydroureteronephrosis. 2. Diverticulosis without diverticulitis. 3. Mechanical penile prosthesis. Twilight is intact. Requested By: Dictated By: KEVIN MAKI M.D. on Feb 28 2015 4:10P This document has been electronically signed by: KEVIN MAKI M.D. on Feb 28 2015 4:10P [id number] us Historical Provider MD RAYGOZA CT PROCEDURES Final R esult documented in this encounter Visit Diagnoses Diagnosis Diverticulosis of large intestine without perforation or abscess without bleeding Abdominal pain Abdominal pain, unspecified site documented in this encounter Care Teams Territory Sales Manager Relationship Specialty Start Date End Date Kraig Ching MD [address] [address] PCP - General 01/22/09 07/09/16 documented as of this encounter
--- OUTSIDE RECORDS SUMMARY | 2024-03-31 05:04 | XMS_ITS | Encounter Summary ---
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 (CMS/HCC); Encounter for therapeutic drug level monitoring; Hyperlipidemia Social History Tobacco Use Types Packs/Day Years Used Date Smoking Tobacco: Heavy Smoker Cigarettes Last attempted t o quit: 04/12/2004 Comments:Smoking History Pac ks/day: 10 Cigarettes Alcohol Use Standard Drinks/Week Comments Yes 0 (1 standard drink = 0.6 oz pur e alcohol) Sex and Gender Information Value Date Recorded Sex Assigned at Not on file 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 Gender Identity Not on file Sexual Orientation [...] Procedure Name Priority Date/Time Associated Diagnosis Comments URINE MICROALBUMIN, CREATININE Routine 09/23/2015 3:09 PM CDT SERUM LIPID PANEL Routine 09/23/2015 3:0 9 PM CDT SERUM GLUCOSE Routine 09/23/2015 3:09 PM CDT PLASMA COMPREHENSIVE METABOLIC PANEL Routine 09/23/2015 3:09 PM CDT BLOOD HEMOGLOBIN A1C Routine 09/23/2015 3:09 PM CDT BLOOD CELL COUNT Routine 09/23/2015 3:09 PM CDT DISCHARGE LABORATORY CUMULATIVE REPORT 09/23/2015 documented in this encounter Results * Urine microalbumin, creatinine (09/23/2015 3:09 PM CDT) Microalbumin <12.0 mcg/ml HISTORI CHRISTIAN RESULTS Creatinine, ur 65 mg/dl HISTO RICAL RESULTS Microalbumin/crea t ratio <18 0 - 30 mcg/mg Cr HISTORICAL RESULTS Urine 09/23/2015 3:09 PM CDT us Kraig Ching MD LAB BLOOD ORDERABLES Final Re sult HISTORICAL RESULTS * (ABNORMAL) Serum lipid panel (09/23/2015 3:09 PM CDT) [facility] Cholesterol 195 30 - 200 mg/dl HISTORICAL RESULTS Comment: Interpretive Data Desirable: ?<200 mg/dL Borderline high: ??200-239 mg/dL High: ? > or = 240 mg/dL Literature Reference: National Cholesterol Education Program (NCEP) Expert Panel on Detection, Evaluation, and Treatment of High Blood Cholesterol in Adults (Adult Treatment Panel III). ??Circulation 2004; 110:227. Current interpretive data was last revised on 2015. Triglycerides 181(H) 0 - 150 mg/dl HISTORICAL RESULTS Comment: Interpretive Data Desirable: ? < 150 mg/dL Borderline High: ? 150 - 199 mg/dL High: ?200 - 499 mg/dL Very High: ? > or = 499 mg/dL Literature Reference: See Cholesterol Current interpretive data was last revised on 2015. HDL 33(L) >=40 mg/dl HISTORICAL RESULTS Comment: Interpretive Data Less than 40 mg/dL - low; A major risk factor for heart disease. Greater than or equal to 60 mg/dL - High; ??considered protective of heart disease. Literature Reference: See Cholesterol Current interpretive data was last revised on 2015. LDL 126 10 - 129 mg/dl HISTORICAL RESULTS Comment: Interpretive Data Optimal: ? < 100 mg/dL Near Optimal: ?100 - 129 mg/dL Borderline High: ?? 130 - 159 mg/dL High: ?160 - 189 mg/dL Very high: ? > or = 190 mg/dL Literature Reference: See Cholesterol Current interpretive data was last revised on 2015. Non-HDL cholesterol, calculated 162 mg/dl HISTORICAL RESULTS Comment: Interpretive Data When triglycerides are >200 mg/dL, non-HDL C is a secondary target of therapy, with a goal 30 mg/dL higher than the identified LDL-C goal. Reference: ??See Cholesterol Reference. Current interpretive data was last revised 2015. Serum 09/23/2015 3:09 PM CDT Kraig Ching MD LAB BLOOD ORDERABLES Final Re sult Performing Organization Address [facility] Phone Number HISTORICAL RESULTS * (ABNORMAL) Plasma comprehensive metabolic panel (09/23/2015 3:09 PM CDT) Sodium 138 135 - 145 mmol/L HISTORICAL RESULTS K, pl 3.9 3.3 - 4.9 mmol/L HISTORICAL RESULTS Chloride 97 97 - 110 mmol/L HISTORICAL RESULTS CO2 24 22 - 32 mmol/L HISTORICAL RESULTS A. gap 17(H) 2 - 15 mmol/L HISTORICAL RESULTS BUN 28(H) 8 - 25 mg/dl HISTORICAL RESULTS Creatinine 1.31(H) 0.80 - 1.30 mg/dl HISTORICAL RESULTS Calcium 9.7 8.5 - 10.3 mg/dl HISTORICAL RESULTS Protein, pl 7.4 6.5 - 8.5 g/dl HISTORICAL RESULTS Alb 4.6 3.5 - 5.0 g/dl HISTORICAL RESULTS Bilirubin 0.3 0.1 - 1.2 mg/dl HISTORICAL RESULTS Alk phos 52 40 - 130 Units/L HISTORICAL RESULTS AST 26 10 - 50 Units/L HISTORICAL RESULTS ALT 21 7 - 55 Units/L HISTORICAL RESULTS Plasma 09/23/2015 3:09 PM CDT Kraig Ching MD LAB BLOOD ORDERABLES Final Re sult Performing Organization Address [facility] Phone Number HISTORICAL RESULTS * Serum glucose (09/23/2015 3:09 PM CDT) Glucose 86 70 - 199 mg/dl HISTORICAL RESULTS Serum 09/23/2015 3:09 PM CDT rKaig Ching MD LAB BLOOD ORDERABLES Final Re sult Performing Organization Address [facility] de Phone Number HISTORICAL RESULTS * (ABNORMAL) Blood cell count [CBC] express (09/23/2015 3:09 PM CDT) WBC 10.3(H) 3.8 - 9.9 K/cumm HISTORICAL RESULTS RBC 4.26(L) 4.30 - 5.80 M/cumm HISTORICAL RESULTS Hgb 12.5(L) 13.0 - 17.5 g/dl HISTORICAL RESULTS Hct 37.8(L) 38.9 - 50.3 % HISTORICAL RESULTS MCV 88.7 81.3 - 96.4 fl HISTORICAL RESULTS MCH 29.3 27.1 - 33.3 pg HISTORICAL RESULTS MCHC 33.1 32.3 - 35.7 g/dl HISTORICAL RESULTS Rdw 13.4 11.1 - 14.9 % HISTORICAL RESULTS RDW 43.5 35.7 - 48.1 fl HISTORICAL RESULTS NRBC 0.0 0.0 - 0.2 % HISTORIC AL RESULTS NRBC, abs 0.00 0.00 - 0.01 K/cumm HISTORICAL RESULTS Platelets 462(H) 150 - 400 K/cumm HISTORICAL RESULTS MPV 9.7 9.1 - 12.3 fl HISTORICAL RESULTS Blood specimen (specimen) 09/23/2015 3:09 PM CDT Kraig Ching MD LAB BLOOD ORDERABLES Final Re sult HISTORICAL RESULTS * (ABNORMAL) Blood hemoglobin A1C (09/23/2015 3:09 PM CDT) Hgb A1C 7.4(H) 4.0 - 6.0 % HISTORICAL RESULTS Estimated average glucose 166 mg/dl HISTORICAL RESULTS Comment: The ADA recommends reporting an estimated Average Glucose (eAG) with all Hemoglobin A1c results using the equation derived from a study of 507 normal and diabetic adults. ??Minority populations were underrepresented and children were not included. ??(Diabetes Care 31:5848-5307, 2008). ??The eAG is not equivalent to a fasting glucose. Blood specimen (specimen) 09/23/2015 3:09 PM CDT Kraig Ching MD LAB BLOOD ORDERABLES Final Re sult HISTORICAL RESULTS * DISCHARGE LABORATORY CUMULATIVE REPORT (09/23/2015) Narrative 09/23/2015 Ordered by an unspecified provider. us Historical Provider LAB BLOOD ORDERABLES Casi l Result documented in this encounter Visit Diagnoses Diagnosis Type 2 diabetes mellitus with other specified complication (HCC) Encounter for therapeutic drug level monitoring Hyperlipidemia Other and unspecified hyperlipidemia documented in this encounter Care Teams Director Credit Risk Relationship Specialty Start Date End Date Kraig Ching MD [address] [facility] [address], [place] [address] PCP - General 01/22/09 07/09/16 documented as of this encounter
--- OUTSIDE RECORDS SUMMARY | 2024-03-31 05:04 | XMS_ITS | Encounter Summary ---
Author Organization [facility] Medical Group Address [address] [place] [address] Care Team Providers Care Facility Sales And Admin Name Role Phone Kraig Ching MD Primary Care Provider [phone] Reason for Visit * Reason Onset Date Comments Abdominal Pain 06/04/2017 Encounter Details Date Type Department Care Team (Late st Contact Info) Description 06/04/2017 Nurse Triage [facility] [address] [facility] [place] [id number] Kraig Ching MD [address] [facility] [address] [place], [place] [id number] Social History Tobacco Use Types Packs/Day Years Used Date Smoking Tobacco: Heavy Smoker Cigarettes Last attempted t o quit: 04/12/2004 Comments:Smoking History Pac ks/day: 10 Cigarettes Alcohol Use Standard Drinks/Week Comments Yes 0 (1 standard drink = 0.6 oz pur e alcohol) Sex and Gender Information Value Date Recorded Sex Assigned at Not on file Legal Sex Male 4:46 PM MANAGER AREA Gender Identity Not on file Sexual Orientation Not on file documented as of this encounter Miscellaneous Notes * Telephone Encounter - Katherine Del Rio PA - 06/04/2017 4:56 PM MANAGER AREA Returned call and advised patient that cipro and flagyl have been sent to pharmacy. I advised ED ifsymptoms worsen. He expressed understanding. GER AREA * Telephone Encounter - Bettye Buitrago RN - 06/04/2017 10:25 AM CST S- abd pain B- last 2 days is having abd pain below navel left side. Is tender to touch in that area. Says lasttime he had this about 2-3 yrs ago it was a diverticulitis flare-up and was given medication and itgot better. Can't remember what it was though. Pt is vague about sxs but denies chest pain, sob, severe pain, vomiting or diarrhea. Had a normal bm this am and no blood or pus. Pain gets better if he sits or lays down and rest. Pain is 5-6/10. Discussed emergent sxs. Reason for Disposition ? ? Age > 60 years Protocols used: ABDOMINAL PAIN - [id number] ACTION REQUIRED: declined appt and would like something called in to pharmacy. Routed to [facility] GER AREA * Telephone Encounter - Bettye Buitrago RN - 06/04/2017 10:17 AM CST Regarding: Chief Complaint: Pain in left abdominal area, diverticulitis flare up ----- Message from Cheyanne Rodriguez MA sent at 06/04/2017 8:56 AM MANAGER AREA ----- Symptom Based Call Chief Complaint: Pain in left abdominal area, diverticulitis flare up Duration: 2 days Appointment Details: Decline-would like for nurse to call Additional Comments: Patient called with above symptoms stating he is having a diverticulitis flareup. He initially called to request a medicine dr. Ching ordered him about 3 years ago for this but he did not know the name of it. GER AREA documented in this encounter Plan of Treatment Not on file documented as of this encounter Visit Diagnoses Not on filedocumented in this encounter Care Teams Facility Sales And Admin Relationship Specialty Start Date End Date Kraig Ching MD [address] [facility] [address] [place] [address] PCP - General 07/10/16 documented as of this encounter
--- OUTSIDE RECORDS SUMMARY | 2024-03-31 05:04 | XMS_ITS | Encounter Summary ---
Author Organization [facility] Medical Group Address [address] [place] [address] Care Team Providers Care Vice President Education Name Role Phone Kraig Ching MD Primary Care Provider [phone] Encounter Details Date Type Department Care Team (Late st Contact Info) Description 11/10/2017 Orders Only [facility] [address] [facility] [address] [place] [phone] Maciel Diggs Social History Tobacco Use Types Packs/Day Years Used Date Smoking Tobacco: Heavy Smoker Smokeless Tobacco: Never Comments:Smoking History Pac ks/day: 10 Cigarettes Alcohol Use Standard Drinks/Week Comments Yes 0 (1 standard drink = 0.6 oz pur e alcohol) Sex and Gender Information Value Date Recorded Sex Assigned at Not on file 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 30 tablet 2 11/10/2017 01/09/2018 documented in this encounter Plan of Treatment Not on file documented as of this encounter Visit Diagnoses Not on filedocumented in this encounter Discontinued Medications Medication Sig Discontinue Reason Start Date End Da te diltiaZEM (CARDIZEM) 120 mg tablet Take 120 mg by mouth daily. Reorder 11/10/2017 documented as of this encounter Care Teams Vice President Education Relationship Specialty Start Date End Date Kraig Ching MD [address] [facility] [address] [place] [address] PCP - General 07/10/16 documented as of this encounter
--- OUTSIDE RECORDS SUMMARY | 2024-03-31 05:04 | XMS_ITS | Encounter Summary ---
Author Organization [facility] Medical Group Address [address] [facility] [address] [facility] [address] [place] [address] Care Team Providers Care Powerhouse Mechanic Name Role Phone Kraig Ching MD Primary Care Provider [phone] Gautam Cope MD Unavailable Tramaine Roe MD Unavailable [phone] Sukhwinder Uribe MD Unavailable [phone] Shay Guillermo MD Unavailable [phone] Marsha Landis RN Unavailable Unavailab Ilene Kaur RN Unavailable [phone] Encounter Details Date Type Department Care Team (Late st Contact Info) Description 10/08/2017 Orders Only [facility] [address] [place], [place] [id number] Scanning, Provider Social History Tobacco Use Types Packs/Day Years Used Date Smoking Tobacco: Heavy Smoker Smokeless Tobacco: Never Comments:Smoking History Pac ks/day: 10 Cigarettes Alcohol Use Standard Drinks/Week Comments Yes 0 (1 standard drink = 0.6 oz pur e alcohol) Overall Financial Resource Strain (CARDIA) Answe r [...] on file Legal Sex Male 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 Minimize further functional decline 2. Maximize quality of life 3. Control pain Strategies: - Activity/exercise program recommendation - Conservative stepwise pain medicine strategy with multi-disciplinary approach - Recommend healthy lifestyle strategies and compensatory methods as needed documented as of this encounter Procedures Procedure Name Priority Date/Time Associated Diagnosis Comments SCAN - RADIOLOGY/IMAGING 10/08/2017 documented in this encounter Results * SCAN - RADIOLOGY/IMAGING (10/08/2017) Anatomical Region Laterality Modality Other us Provider Scanning Final Result documented in this encounter Visit Diagnoses Not on filedocumented in this encounter Care Teams Powerhouse Mechanic Relationship Specialty Start Date End Date Kraig Ching MD [address] [place] [address] PCP - General 07/10/16 Gautam Cope MD [address] [place] [address] Medical Oncologist/Soaker Hides Medical Oncology 08/18/18 Tramaine Roe MD [address] [place] [address] Referring Physician Urology 08/18/18 Sukhwinder Uribe MD [address] [place] [address] Consulting Physician Urology 08/18/18 Shay Guillermo MD [address] [place] [address] Referring Physician Urology 08/18/18 Marsha Landis, RN Registered Nurse 11/17/18 Ilene Fragoso, SHEA [address] [facility] [address] [place] [address] Cable Technician 12/23/18 11/01/19 documented as of this encounter
--- OUTSIDE RECORDS SUMMARY | 2024-03-31 05:04 | XMS_ITS | Encounter Summary ---
Author Organization [facility] Healthcare Address [address] [place] [address] Care Team Providers Care Nuclear Powerplant Mechanic Helper Name Role Phone Kraig Ching MD Primary Care Provider [phone] Encounter Details Date Type Department Care Team (Late st Contact Info) Description 11/22/2017 4:55 PM CDT Lab [facility] ([facility]) [address] [place] [phone] Lary Villalobos MD [address] MS [phone]?? [place], [place] [phone] Stage 3 chronic kidney disease Discharge Disposition: Discharge to home or self [...] on file Legal Sex Male 4:46 PM COOK FRY Gender Identity Not on file Sexual Orientation Not on file documented as of this encounter Discharge Disposition Disposition Code Departure Means Destination Discharge to home or self care documented in this encounter Plan of Treatment Not on file documented as of this encounter Procedures Procedure Name Priority Date/Time Associated Diagnosis Comments ALBUMIN CREATININE RATIO, URINE Routine 11/22/2017 4:26 PM CDT Stage 3 chronic kidney disease PTH Routine 11/22/2017 4:26 PM CDT Stage 3 chronic kidney disease documented in this encounter Results * PTH, intact (11/22/2017 4:26 PM CDT) PTH 32 15 - 65 pg/mL [facility] Blood specimen (specimen) 11/22/2017 4:26 PM CDT 11/22/2017 4:33 PM CDT Narrative [facility] - 11/22/2017 5:14 PM CDT Lary Villalobos MD LAB BLOOD ORDERABLES Fin al Result Performing Organization Address City/[facility]/ZIP Co de Phone Number [facility] [place] [address] * Microalbumin / creatinine ratio, urine, random (11/22/2017 4:26 PM CDT) Microalbumin, ur <12.0 mcg/mL [facility] Creatinine, ur 49.10 mg/dL [facility] Microalbumin/cr eat ratio <24.4 0.1 - 29.9 mcg/mg Cr [facility] Comment:Unable to calculate exact result. Urine 11/22/2017 4:26 PM CDT 11/22/2017 4:37 PM CDT Narrative [facility] - 11/22/2017 5:57 PM CDT Lary Villalobos MD LAB URINE ORDERABLES Fin al Result Performing Organization Address City/[facility] Co de Phone Number [facility] [place] [address] documented in this encounter Visit Diagnoses Diagnosis Stage 3 chronic kidney disease (HCC) documented in this encounter Care Teams Nuclear Powerplant Mechanic Helper Relationship Specialty Start Date End Date Kraig Ching MD [address] [facility] [address] [place] [address] PCP - General 07/10/16 documented as of this encounter
--- OUTSIDE RECORDS SUMMARY | 2024-03-31 05:04 | XMS_ITS | Encounter Summary ---
Author Organization [facility] Healthcare Address [address] [place] [address] Care Team Providers Care City Manager Name Role Phone Kraig Ching MD Primary Care Provider [phone] Encounter Details Date Type Department Care Team (Late st Contact Info) Description 10/22/2017 11:55 AM CDT Lab [address] [address] Social History Tobacco Use Types Packs/Day Years Used Date Smoking Tobacco: Heavy Smoker Smokeless Tobacco: Never Comments:Smoking History Pac ks/day: 10 Cigarettes Alcohol Use Standard Drinks/Week Comments Yes 0 (1 standard drink = 0.6 oz pur e alcohol) Sex and Gender Information Value Date Recorded Sex Assigned at Not on file 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
--- OUTSIDE RECORDS SUMMARY | 2024-03-31 05:04 | XMS_ITS | Encounter Summary ---
Author Organization [facility] Medical Group Address [address] [place] [address] Care Team Providers Care Visual Communications Instructor Name Role Phone Kraig Ching MD Primary Care Provider [phone] Encounter Details Date Type Department Care Team (Late st Contact Info) Description 06/04/2017 Orders Only [facility] [address] [facility] [address] [place] [address] Katherine Del Rio PA [address] [facility] [address] [place] [address] Diverticulitis of large intestine without perforation or abscess, unspecified bleeding status (Primary Dx) Social History Tobacco Use Types Packs/Day Years Used Date Smoking Tobacco: Heavy Smoker Cigarettes Last attempted t o quit: 04/12/2004 Comments:Smoking History Pac ks/day: 10 Cigarettes Alcohol Use Standard Drinks/Week Comments Yes 0 (1 standard drink = 0.6 oz pur e alcohol) Sex and Gender Information Value Date Recorded Sex Assigned at Not on file 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 42 tablet 06/04/2017 06/18/2017 ciprofloxacin (CIPRO) 500 mg tabletIndications: Diverticulitis of large intestine without perforation or abscess, unspecified bleeding status Take 1 tablet (500 mg total) by mouth 2 (two) times a day for 10 days. 20 tablet 06/04/2017 06/14/2017 documented in this encounter Plan of Treatment Not on file documented as of this encounter Visit Diagnoses Diagnosis Diverticulitis of large intestine without perforation or abscess, unspecified bleeding status- Primary documented in this encounter Care Teams Visual Communications Instructor Relationship Specialty Start Date End Date Kraig Ching MD [address] [address] PCP - General 07/10/16 documented as of this encounter
--- OUTSIDE RECORDS SUMMARY | 2024-03-31 05:04 | XMS_ITS | Encounter Summary ---
Author Organization [facility] Address [address] [place] [address] Phone Care Team Providers Care Tube Blower Name Role Phone Kraig Ching MD Primary Care Provider [phone] Reason for Referral * Diagnostic Imaging (Routine) - Closed Specialty Diagnoses / Procedures Referred By Contac t Referred To Contact Diagnoses CRD (chronic renal disease), stage III (HCC) Procedures US Retroperitoneal Complete Lin Guerrero MD Phone: tel: fax: [facility] (All Locations) Referral ID Status Reason Start Date Expiration Date Visits Re quested Visits Authorized [id number] Closed 11/17/2017 05/29/2019 1 1 Encounter Details Date Type Department Care Team (Late st Contact Info) Description 11/17/2017 Orders Only [facility] Nephrology [address] [place] [address] Lin Guerrero MD [address] [place] [address] CRD (chronic renal disease), stage III (Primary Dx) Social History Tobacco Use Types Packs/Day Years Used Date Smoking Tobacco: Heavy Smoker Smokeless Tobacco: Never Comments:Smoking History Pac ks/day: 10 Cigarettes Alcohol Use Standard Drinks/Week Comments Yes 0 (1 standard drink = 0.6 oz pur e alcohol) Sex and Gender Information Value Date Recorded Sex Assigned at Not on file 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 ??The kidneys remain normal in size but have decreased in size since the prior examination in 2012. No hydronephrosis. Electronically signed by: Bryan Antunez M.D. Narrative 11/22/2017 4:09 PM CDT EXAMINATION: COMPLETE RENAL SONOGRAM HISTORY: ??Chronic kidney disease COMPARISON: ??Renal sonogram dated 06/20/2012 FINDINGS: ?? Kidneys: The echogenicity of both kidneys is normal. The kidneys are normal in size but have decreased in size since the prior examination. ??The right kidney measures 12.4 cm in length (previously 13.2 cm), and the left, 11.8 cm in length (previously 13.3 cm). There is no hydronephrosis in either kidney. No renal calculi are visualized. ??There is a 2.4 x 2.8 x 3.0 cm simple cyst in the mid to inferior right kidney and a 2.4 x 2.1 x 2.8 cm simple cyst in the left mid zone. Bladder: The urinary bladder is normal Procedure Note Bryan Antunez MD - 11/22/2017 EXAMINATION: COMPLETE RENAL SONOGRAM HISTORY: Chronic kidney disease COMPARISON: Renal sonogram dated 06/20/2012 FINDINGS: Kidneys: The echogenicity of both kidneys is normal. [...] simple cyst in the left mid zone. Bladder: The urinary bladder is normal IMPRESSION: Bilateral simple renal cysts. The kidneys remain normal in size but have decreased in size since the prior examination in 2012. No hydronephrosis. Electronically signed by: rByan Antunez M.D. us Lin Guerrero MD IMG US PROCEDURES Final Result documented in this encounter Visit Diagnoses Diagnosis CRD (chronic renal disease), stage III (HCC)- Primary Chronic kidney disease, Stage III (moderate) CRD (chronic renal disease), stage III (HCC) Chronic kidney disease, Stage III (moderate) documented in this encounter Care Teams Tube Blower Relationship Specialty Start Date End Date Kraig Ching MD [address] [address] PCP - General 07/10/16 documented as of this encounter
--- OUTSIDE RECORDS SUMMARY | 2024-03-31 05:04 | XMS_ITS | Encounter Summary ---
Author Organization [facility] Address [address] [place] [address] Care Team Providers Care Steel Plate Caulker Name Role Phone Kraig Ching MD Primary Care Provider [phone] Reason for Referral * Consultation (Routine) - Closed Specialty Diagnoses / Procedures Referred By Contac t Referred To Contact Cardiology Diagnoses Myocardial infarction, unspecified [place] type, unspecified artery (HCC) Katherine Del Rio PA Phone: tel: fax: Junior Gonzalez MD Phone: tel: fax: Referral ID Status Reason Start Date Expiration Date V isits Requested Visits Authorized [id number] Closed Specialty Services Required 11/09/2017 05/21/2019 1 1 Encounter Details Date Type Department Care Team (Late st Contact Info) Description 11/09/2017 Orders Only [facility] [address] [facility] [facility] [address] [place] [id number] Katherine Del Rio PA [address] [facility] [address] [place] [address] Myocardial infarction, unspecified [place] type, unspecified artery (CMS/HCC) (Primary Dx) Social History Tobacco Use Types Packs/Day Years Used Date Smoking Tobacco: Heavy Smoker Smokeless Tobacco: Never Comments:Smoking History Pac ks/day: 10 Cigarettes Alcohol Use Standard Drinks/Week Comments Yes 0 (1 standard drink = 0.6 oz pur e alcohol) Sex and Gender Information Value Date Recorded Sex Assigned at Not on file 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 Gender Identity Not on file Sexual Orientation Not on file documented as of this encounter Plan of Treatment Scheduled Referrals Name Type Priority Associated Diagnoses Order Schedule Ambulatory referral to Cardiology Outpatient Referral Routine Myocardial infarction, unspecified [place] type, unspecified artery (CMS/HCC) 1 Occurrences starting 11/09/2017 until 05/12/2018 documented as of this encounter Visit Diagnoses Diagnosis Myocardial infarction, unspecified [place] type, unspecified artery (HCC)- Primary documented in this encounter Care Teams Steel Plate Caulker Relationship Specialty Start Date End Date Kraig Ching MD [address] [address] PCP - General 07/10/16 documented as of this encounter
--- OUTSIDE RECORDS SUMMARY | 2024-03-31 05:04 | XMS_ITS | Encounter Summary ---
Author Organization [facility] Address [address] [place] [address] Care Team Providers Care Residential Air Sealing Technician Name Role Phone Kraig Ching MD Primary Care Provider [phone] Reason for Referral * Diagnostic Imaging (Routine) - Closed Specialty Diagnoses / Procedures Referred By Contac t Referred To Contact Diagnoses CRD (chronic renal disease), stage III (HCC) Procedures US Retroperitoneal Complete Lin Guerrero MD Phone: tel: fax: [facility] (All Locations) Referral ID Status Reason Start Date Expiration Date Visits Re quested Visits Authorized [id number] Closed 11/17/2017 05/29/2019 1 1 Reason for Visit * Diagnostic Imaging (Routine) - Closed Specialty Diagnoses / Procedures Referred By Contac t Referred To Contact Diagnoses CRD (chronic renal disease), stage III (HCC) Procedures US Retroperitoneal Complete Lin Guerrero MD Phone: tel: fax: [facility] (All Locations) Referral ID Status Reason Start Date Expiration Date Visits Re quested Visits Authorized [id number] Closed 11/17/2017 05/29/2019 1 1 Encounter Details Date Type Department Care Team (Latest Contact Info) Description 11/22/2017 2:51 PM CDT - 11/22/2017 11:59 PM CDT Hospital Encounter [facility] [address] [place] [address] Lin Guerrero MD [address] [place] [address] [address] [place] [address] CRD (chronic renal disease), stage III Discharge Disposition: Discharge to home or self [...] on file 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 11/25/2017 documented as of this encounter Discharge Disposition Disposition Code Departure Means Destination Discharge to home or self care documented in this encounter Plan of Treatment Not on file documented as of this encounter Procedures Procedure Name Priority Date/Time Associated Diagnosis Comments US RETROPERITONEAL COMPLETE Schedule Routine, Read Routine (OP Routine) 11/22/2017 3:59 PM CDT CRD (chronic renal disease), stage III documented in this encounter Results * US Retroperitoneal Complete [...] hydronephrosis. Electronically signed by: Bryan Antunez M.D. us Lin Guerrero MD IMG US PROCEDURES Final Result documented in this encounter Visit Diagnoses Diagnosis CRD (chronic renal disease), stage III (HCC) Chronic kidney disease, Stage III (moderate) documented in this encounter Care Teams Residential Air Sealing Technician Relationship Specialty Start Date End Date Kraig Ching MD [address] [address] PCP - General 07/10/16 documented as of this encounter
--- OUTSIDE RECORDS SUMMARY | 2024-03-31 05:04 | XMS_ITS | Encounter Summary ---
Author Organization [facility] Address [address] [place] [address] Phone Care Team Providers Care Range Mechanic Name Role Phone Kraig Ching MD Primary Care Provider [phone] Encounter Details Date Type Department Care Team (Late st Contact Info) Description 11/17/2017 10:30 AM CDT Office Visit [facility] Nephrology [facility] 5[address] [place] [address] [place] [phone] Stage 3 chronic kidney disease (Primary Dx); Essential hypertension Social History Tobacco Use Types Packs/Day Years Used Date Smoking Tobacco: Heavy Smoker Smokeless Tobacco: Never Comments:Smoking History Pac ks/day: 10 Cigarettes Alcohol Use Standard Drinks/Week Comments Yes 0 (1 standard drink = 0.6 oz pur e alcohol) Sex and Gender Information Value Date Recorded Sex Assigned at Not on file 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 Gender Identity Not on file Sexual Orientation Not on file documented as of this encounter Last Filed Vital Signs Vital Sign Reading Time Taken Comments Blood Pressure 152/68 11/17/2017 10:10 AM CDT Pulse 65 11/17/2017 10:10 AM CDT Temperature 36.6 ??C (97.9 ??F) 11/17/2017 10:10 AM C DT Respiratory Rate - - Oxygen Saturation - - Inhaled Oxygen Concentration - - Weight 89.2 kg (196 lb 9.6 oz) 11/17/2017 10:10 AM CDT Height 177.8 cm (5' 10 ) 11/17/2017 10:10 AM CDT Body Mass Index 28.21 11/17/2017 10:10 AM CDT documented in this encounter Ordered Prescriptions Prescription Sig Dispense Quantity Refills Last Filled Start Date End Date lisinopril (PRINIVIL,ZESTRIL) 10 mg tabletIndications: Essential hypertension Take 1 tablet (10 mg total) by mouth daily. 30 tablet 3 11/17/2017 01/24/2018 documented in this encounter Progress Notes * Lary Villalobos MD - 11/17/2017 10:30 AM CDT DAVID DREW 1940 Date of Visit: 11/17/2017 REASON FOR CONSULT: Evaluation and management of chronic kidney disease REFERRING PHYSICIAN: Kraig Ching MD HISTORY OF PRESENT ILLNESS: Mr. Drew is a 77 y.o. gentleman with COPD, paroxsymal atrial fibrillation on anticoagulation, type 2 diabetes mellitus, and hypertension, who was referred by Dr. Ching for evaluation and management of chronic kidney disease. The patient reports he has known that he has kidney dysfunction for the last 1 year. Upon review ofhis medical records, it is noted that he has had an elevated serum creatinine since 2012 when his serum creatinine was in the 1.1 range. In 2013 his serum creatinine increased to 1.4 and subsequentlyremained around 1.3- 1.4 until 2016. In January 2017, serum creatinine was 1.57. It was 1.66 in August and 1.81 in October of 2017. The patient has had a long-standing history of diabetes and hypertension, which were diagnosed after an episode of severe pancreatitis in 1999. His diabetes was previously suboptimally controlled with hemoglobin A1c consistent above 7.0%. In 2011, he had a hemoglobin A1c of 11.1%. He has had very mild microalbuminuria. He has no known heart disease, except for recently diagnosed atrial fibrillation, for which he was placed on Xarelto, This was complicated by recent hospitalization for duodenal ulcer bleeding in 10/2017, and his Xarelto and Aspirin are now on hold. He denies chest pain, shortness breath, paroxysmal nocturnal dyspnea, orthopnea, or lower extremity edema. He denies any history of recurrent renal stones or urinary tract infections. He denies any changes to urine, including change in color, hematuria, dysuria, frequency, urgency, or frothy urine. He denies any weight loss, weight gain, or changes to appetite. He denies any chronic use of NSAIDs or herbal medications. REVIEW OF SYSTEMS: Constitutional: Negative for anorexia, chills, fatigue, fevers, weight loss and weight gain Eyes: Negative for discharge, redness and visual disturbance Ears, nose, mouth, throat: Negative for epistaxis, sore mouth and sore throat Respiratory: Negative for cough, dyspnea on exertion and wheezing Cardiovascular: Negative for chest pain, dyspnea, lower extremity edema and orthopnea Gastrointestinal: Negative for abdominal pain, diarrhea, nausea and vomiting Genitourinary: Negative for dysuria, frequency, hematuria and urinary incontinence Skin: Negative for rash Hematologic/lymphatic: Negative for bleeding, easy bruising and petechiae Musculoskeletal: Negative for joint swelling, muscle weakness and myalgias Neurological: Negative for dizziness, gait problems and weakness Endocrine: Negative for polydipsia and polyphagia PAST MEDICAL HISTORY: 1. COPD 2. Paroxysmal Atrial Fibrillation, Xarelto on hold 3. Type II diabetes mellitus, not on insulin, last A1C 7.3 in 08/2017 4. Essential Hypertension 5. Dyslipidemia 6. Pancreatitis in 1999 7. Duodenal Ulcer, EGD 10/2017 8. Prostate Cancer in 1999, [id number], status post radical prostatectomy with subsequent external beam radiation therapy PAST SURGICAL HISTORY: 1. Prostatectomy as above ALLERGIES: No Known Allergies MEDICATIONS: 1. Aspirin 81 mg PO daily - on hold 2. Crestor 20 mg PO daily - oh hold since 10/2017 3. Fenofibrate 145 mg PO daily - on hold since 10/2017 4. Zetia 10 mg PO daily - on hold since 10/2017 5. Cardizem 120 mg PO daily 6. Amlodipine 5 mg PO daily - on hold since 10/2017 7. Lisinopril 10 mg PO daily - on hold since 10/2017 8. Metformin 500 mg PO BID 10. Protonix 40 mg PO daily 12. Xarelto 15 mg PO daily - on hold SOCIAL HISTORY: Tobacco: Quit in 10/08/2017 - 1ppd for 60 years Alcohol: Quit in 10/08/2017 - 1-2 drinks a week previously, and heavy drinker at the time of pancreatitis Drugs: Marijuana (not in yeas), no IVDU FAMILY HISTORY: Mother - Dialysis, started at 80 years of age. Etiology of her ESRD is unknown. PHYSICAL EXAM: GENERAL: A very pleasant male in no apparent distress BP 152/68 (BP Location: Right arm, Patient Position: Sitting) Pulse 65 Temp 36.6 ??C (97.9 ??F)(Oral) Ht 177.8 cm (5' 10 ) Wt 89.2 kg (196 lb 9.6 oz) BMI 28.21 kg/m?? HEENT: Sclera anicteric. Mucus membranes pink and moist. Oropharynx clear. HEART: Regular rhythm and rate, S1 S2 normal, no murmurs, rub or gallop. LUNGS: clear to auscultation bilaterally ABDOMEN: Soft, non-tender, non-distended, bowel sounds normal. No hepatosplenomegaly or masses. No abdominal bruits. EXTREMITIES: No edema. SKIN: No rash NEURO: Alert and oriented x3. No focal motor deficits PSYCH: Pleasant, cooperative, in no apparent distress. MUSCULOSKELETAL: No joint swelling or tenderness LABORATORY DATA: DATE Na K CO2 BUN SCr Alb Ca Phos PTH Vit D Hb Iron TSAT Ferritin 10/22/2017 135 4.5 28 24 1.81 9.7 08/30/2017 138 4.5 27 24 1.66 4.4 9.5 13.0 01/15/2017 140 4.2 27 26 1.57 4.5 9.2 13.5 07/22/2016 141 4.0 25 19 1.34 4.7 9.6 13.1 09/23/2015 138 3.9 24 28 1.31 4.6 9.7 12.5 02/25/2015 140 4.0 25 22 1.16 4.7 10 12.9 07/12/2013 1.19 03/14/2013 1.17 Urine cjyvirjybhci-bn-zijqixqntk ratio 08/30/2017 <36.5 mcg/mg 01/15/2017 55.7 mcg/mg 07/22/2016 38.0 mcg/mg 09/23/2015 <18 mcg/mg Urine dipstick from today showed a pH 7.0, specific gravity 1.010, no protein, no blood, otherwise unremarkable. ASSESSMENT AND PLAN: 1. Chronic kidney disease, stage3 likely secondary to diabetes mellitus and Hypertension: The worsening in his renal function has been slowly progressive over the last 2-3 years, with progressive microalbuminuria. He has a bland urinalysis otherwise. Discussed with patient regarding the stage of renal disease, likely causes, and importance of control of risk factors including hypertension and diabetes. Also discussed the importance of avoiding NSAIDs. We will obtain repeat renal panel and renalultrasound. 2. Hypertension: Poorly controlled. Patient is currently only on Diltiazem 120 mg PO daily. 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 3. Anemia of chronic kidney disease: Of note, the patient had transfusions during his recent admission for bleeding duodenal ulcer. We will assess anemia status today. 4. Secondary hyperparathyroidism: We will obtain serum phosphorus and iPTH prior to his next visit. 5. Immunizations: We will discuss Prevnar 13 and Pneumovax at his next visit. DISPOSITION: The patient will return for follow up in 3 months, or ealier if indicated. In the interim, we will communicate with him over the phone regarding the results of the above-mentioned tests. Patient seen and discussed with Dr Yolanda Villalobos MD Nephrology Fellow Cosigned by Lin Guerrero MD at 11/27/2017 5:48 PM CDT Associated attestation - Lin Guerrero MD - 11/27/2017 5:48 PM CDT I have seen and examined the patient on 11/17/2017. I agree with the findings and plan of care as documented in the renal fellow's note. Lin Guerrero MD documented in this encounter Plan of Treatment Not on file documented as of this encounter Procedures Procedure Name Priority Date/Time Associated Diagnosis Comments POCT URINALYSIS DIPSTICK Routine 11/17/2017 10:50 AM CDT Stage 3 chronic kidney disease documented in this encounter Results * Microalbumin / creatinine ratio, urine, random (11/22/2017 4:26 PM CDT) Microalbumin, ur <12.0 mcg/mL [facility] Creatinine, ur 49.10 mg/dL [facility] Microalbumin/cr eat ratio <24.4 0.1 - 29.9 mcg/mg Cr [facility] Comment:Unable to calculate exact result. Urine 11/22/2017 4:26 PM CDT 11/22/2017 4:37 PM CDT Narrative [facility] - 11/22/2017 5:57 PM CDT Lary Villalobos MD LAB URINE ORDERABLES Fin al Result Performing Organization Address [facility] Co de Phone Number [facility] [place] [address] * PTH, intact (11/22/2017 4:26 PM CDT) Pathologist [facility] PTH 32 15 - 65 pg/mL [facility] Blood specimen (specimen) 11/22/2017 4:26 PM CDT 11/22/2017 4:33 PM CDT Narrative [facility] 11/22/2017 5:14 PM CDT Result [facility] Lary Villalobos MD LAB BLOOD ORDERABLES Fin al Result Performing Organization Address [facility] de Phone Number [facility] [employer] [place] [address] * POCT urinalysis dipstick (11/17/2017 10:50 AM CDT) Glucose, ur, POC Negative Negative mg/dL Bilirubin, ur, POC Negative Negative Ketones, ur, POC Negative Negative Specific [place], POC 1.010 1.005 - 1.030 Blood, ur, POC Negative Negative pH, ur, POC 7.0 5.0 - 8.0 Protein, ur, POC Negative Negative Urobilinogen, urine, POC 0.2 0.2 - 1.0 mg/dL Nitrite, ur, POC Negative Negative Leukocytes, ur, POC Negative Negative Lot Number [id number] Urine 11/17/2017 10:5 0 AM CDT Result [facility] Lin Guerrero MD POINT OF CARE TEST ORDERABLES Fi nal Result documented in this encounter Visit Diagnoses Diagnosis Stage 3 chronic kidney disease (HCC)- Primary Essential hypertension Unspecified essential hypertension Stage 3 chronic kidney disease (HCC) documented in this encounter Discontinued Medications Medication Sig Discontinue Reason Start Date End Da te lisinopril (PRINIVIL,ZESTRIL) 40 mg tablet Take 1 tablet (40 mg total) by mouth daily. Reorder 03/25/2017 11/17/2017 amLODIPine (NORVASC) 5 mg tablet TAKE 1 TABLET BY MOUTH EVERY DAY Therapy completed 09/08/2017 11/18/2017 budesonide-formoterol (SYMBICORT) 80-4.5 mcg/actuation inhaler Inhale 2 puffs 2 (two) times a day. Rinse mouth with water after use to reduce aftertaste and incidence of candidiasis. Do not swallow. Therapy completed 11/18/2017 clotrimazole (ATHLETIC FOOT CREAM) 1 % cream apply by topical route 2 times every day to the affected and surrounding areas of skin in the morning and evening Therapy completed 07/22/2016 11/18/2017 cyclobenzaprine (FLEXERIL) 10 mg tablet take 1 tablet by oral route 2 times every day Therapy completed 06/20/2013 11/18/2017 ezetimibe (ZETIA) 10 mg tablet take 1 tablet by oral route every day Therapy completed 03/09/2016 11/18/2017 FARXIGA 5 mg tablet TAKE 1 TABLET BY MOUTH EVERY MORNING Therapy completed 10/11/2017 11/18/2017 fenofibrate nanocrystallized (TRICOR,TRIGLIDE) 145 mg tablet Take 1 tablet (145 mg total) by mouth daily. Therapy completed 01/12/2017 11/18/2017 fenofibrate nanocrystallized (TRICOR,TRIGLIDE) 145 mg tablet TAKE 1 TABLET BY MOUTH EVERY DAY Therapy completed 07/19/2017 11/18/2017 OYSTER SHELL CALCIUM 500 500 mg calcium (1,250 mg) tablet TK 1 T PO QAM Therapy completed 11/04/2017 11/18/2017 potassium chloride ER (KLOR-CON,K-DUR) 20 mEq CR tablet TAKE 1 TABLET BY MOUTH EVERY MORNING Therapy completed 06/12/2007 11/18/2017 predniSONE (DELTASONE) 10 mg tablet Take 10 mg by mouth daily. Take 30mg tabs daily for 2 days, then 20mg tabs for 2 days, then 10mg tabs for 2 days, then off Therapy completed 11/18/2017 rosuvastatin (CRESTOR) 20 mg tablet Take 20 mg by mouth daily. Therapy completed 11/18/2017 travoprost, benzalkonium, (TRAVATAN) 0.004 % ophthalmic solution 1 drop nightly. Therapy completed 11/18/2017 documented as of this encounter Care Teams Range Mechanic Relationship Specialty Start Date End Date Kraig Ching MD [address] [address] PCP - General 07/10/16 documented as of this encounter
--- OUTSIDE RECORDS SUMMARY | 2024-03-31 05:04 | XMS_ITS | Encounter Summary ---
Author Organization [facility] Address [address] [place] [address] Care Team Providers Care Backup Administrator Name Role Phone Kraig Ching MD Primary Care Provider [phone] Encounter Details Date Type Department Care Team (Late st Contact Info) Description 10/22/2017 Telephone [facility] [address] 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 Gender Identity Not on file Sexual Orientation Not on file documented as of this encounter Miscellaneous Notes * Telephone Encounter - Gracie Iraheta MA - 10/22/2017 3:31 PM CDT Pt has an appointment on 11/17 @ 1030am with the renal doc in the [facility] [address] Mejia Buckpt vm wasfull and I could not leave a VM documented in this encounter Plan of Treatment Not on file documented as of this encounter Visit Diagnoses Not on filedocumented in this encounter Care Teams Backup Administrator Relationship Specialty Start Date End Date Kraig Ching MD [address] [address] PCP - General 07/10/16 documented as of this encounter
--- OUTSIDE RECORDS SUMMARY | 2024-03-31 05:04 | XMS_ITS | Encounter Summary ---
Author Organization [facility] Address [address] [place] [address] Care Team Providers Care Vehicle Fare Collector Name Role Phone Kraig Ching MD Primary Care Provider [phone] Encounter Details Date Type Department Care Team (Late st Contact Info) Description 10/10/2017 Orders Only [facility] Health Information Management [address] [place] [address] Scanning, Provider Social History Tobacco Use Types Packs/Day Years Used Date Smoking Tobacco: Heavy Smoker Smokeless Tobacco: Never Comments:Smoking History Pac ks/day: 10 Cigarettes Alcohol Use Standard Drinks/Week Comments Yes 0 (1 standard drink = 0.6 oz pur e alcohol) Sex and Gender Information Value Date Recorded Sex Assigned at Not on file 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 Gender Identity Not on file Sexual Orientation Not on file documented as of this encounter Plan of Treatment Not on file documented as of this encounter Procedures Procedure Name Priority Date/Time Associated Diagnosis Comments SCAN - RADIOLOGY/IMAGING 10/10/2017 12:34 PM CDT documented in this encounter Results * SCAN - RADIOLOGY/IMAGING (10/10/2017 12:34 PM CDT) Anatomical Region Laterality Modality Other us Provider Scanning Final Result documented in this encounter Visit Diagnoses Not on filedocumented in this encounter Care Teams Vehicle Fare Collector Relationship Specialty Start Date End Date Kraig Ching MD [address] [facility] [address] [place] [address] PCP - General 07/10/16 documented as of this encounter
--- OUTSIDE RECORDS SUMMARY | 2024-03-31 05:05 | XMS_ITS | Encounter Summary ---
Author Organization [facility] Facility Care Team Providers Care Clinical Pharmacy Technician Name Role Phone Kraig Ching MD Primary Care Provider [phone] Encounter Details Date Type Department Care Team (Late st Contact Info) Description 09/13/2012 - 09/13/2012 11:59 PM T Hospital Encounter [facility] Kraig Ching MD [address] [id number] Other and unspecified hyperlipidemia; Encounter for therapeutic drug monitoring; Encounter for long-term (current) use of other medications Social History Tobacco Use Types Packs/Day Years Used Date Smoking Tobacco: Never Assessed Sex and Gender Information Value Date Recorded Sex Assigned at Not on file 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 30 6 02/26/2012 09/08/2017 blood glucose diagnostic (SURESTEP TEST) strip Test sugars two times per day as directed 100 3 09/12/2007 09/18/2017 lisinopril (PRINIVIL,ZESTRI L) 40 mg tablet TAKE [...] Associated Diagnosis Comments DISCHARGE LABORATORY CUMULATIVE REPORT Routine 09/13/2012 5:09 PM CDT SERUM LIPID PANEL Routine 09/13/2012 1:0 9 PM CDT SERUM GLUCOSE Routine 09/13/2012 1:09 PM CDT PLASMA COMPREHENSIVE METABOLIC PANEL Routine 09/13/2012 1:09 PM CDT documented in this encounter Results * Discharge Laboratory Cumulative Report (09/13/2012 5:09 PM CDT) 09/13/2012 5:09 PM CDT Narrative HISTORICAL RESULTS - 09/13/2012 5:09 PM CDT ? [facility] ? Department of Laboratories ?[facility] [address] ?[facility] ?CAM 14-A Patient Name: ? DAVID DREW Rec Number: ?? [id number] Date of : ?1940 Gender/Age: ? Male 71 years Doctor: ? Kraig L Ching, M.D. Report Date/Time: 09/13/2012 17:09 ?* Abnormal ??C Critical ??f Footnote ??^ Corrected ??L Low ??H High ?i Interp Data ??@ Reference Lab ?Chart Type: Cumulative ? CHEMISTRY ? Standard Blood Chemistry ?09/13/2012 ?13:09:00 Test ?Units ?Reference Sodium ?139 ? mmol/L ?? 135-145 Plasma Potassium ?4.7 ? mmol/L ?? 3.3-4.9 Chloride ?102 ? mmol/L ?? 97-110 Total CO2 ? 27 ?mmol/L ?? 22-32 Anion Gap ? 10 ?mmol/L ?? 0-16 BUN ? 29 ??H ? mg/dL ?8-25 Creatinine ?1.12 ?mg/dL ?0.70-1.30 Total Bilirubin ? 0.3 ? mg/dL ?0.3-1.1 Glucose ? 110 ? mg/dL ?65-199 Total Calcium ? 9.4 ? mg/dL ?8.6-10.3 Plasma Total Protein ??7.3 ? g/dL ? 6.5-8.5 Albumin ? 4.7 ? g/dL ? 3.6-5.0 Alkaline Phosphatase ??45 ?Units/L ??38-126 ALT ? 32 ?Units/L ??7-53 AST ? 25 ?Units/L ??11-47 ?Lipids ? 09/13/2012 ? 13:09:00 Test ? Units ??Reference Total Cholesterol i ?165 ? mg/dL ??0-200 HDL Cholesterol i ?44 ?mg/dL ??40-199 Triglycerides i ?111 ? mg/dL ??0-150 LDL Chol (Calc) i ?99 ?mg/dL ??0-129 non-HDL Cholesterol i ??121 ? mg/dL ? CHEMISTRY ?Lipids 09/13/2012 13:09:00 Total Cholesterol: Interpretive Data Desirable: ?<200 mg/dL Borderline high: ??200-239 mg/dL High: ? >240 mg/dL Literature Reference: National Cholesterol Education Program (NCEP) Expert Panel on Detection, Evaluation, and Treatment of High Blood Cholesterol in Adults (Adult Treatment Panel III). ??Circulation 2004; 110:227. Current interpretive data was last revised on 2005. 09/13/2012 13:09:00 HDL Cholesterol: Interpretive Data Less than 40 mg/dL - low; A major risk factor for heart disease. Greater than or equal to 60 mg/dL - High; ??considered protective of heart disease. Literature Reference: See Cholesterol Current interpretive data was last revised on 2007. 09/13/2012 13:09:00 Triglycerides: Interpretive Data Desirable: ? < 150 mg/dL Borderline High: ? 150 - 199 mg/dL High: ?> 200 mg/dL Literature Reference: See Cholesterol Current interpretive data was last revised on 06. 09/13/2012 13:09:00 LDL Chol (Calc): Interpretive Data Optimal: ? < 100 mg/dL Near Optimal: ?100 - 129 mg/dL Borderline High: ?? 130 - 159 mg/dL High: ?> 160 mg/dL Literature Reference: See Cholesterol Current interpretive data was last revised on 06. 09/13/2012 13:09:00 non-HDL Cholesterol: Interpretive Data When triglycerides are >200 mg/dL, non-HDL C is a secondary target of therapy, with a goal 30 mg/dL higher than the identified LDL-C goal. Reference: ??See Cholesterol Reference. Current interpretive data was last revised 2011. us Historical Provider LAB BLOOD ORDERABLES Casi gretta Result HISTORICAL RESULTS * Serum lipid panel (09/13/2012 1:09 PM CDT) [facility] Cholesterol 165 0 - 200 mg/dl HISTORICAL RESULTS Comment: Interpretive Data Desirable: ?<200 mg/dL Borderline high: ??200-239 mg/dL High: ? >240 mg/dL Literature Reference: National Cholesterol Education Program (NCEP) Expert Panel on Detection, Evaluation, and Treatment of High Blood Cholesterol in Adults (Adult Treatment Panel III). ??Circulation 2004; 110:227. Current interpretive data was last revised on 2005. Triglycerides 111 0 - 150 mg/dl HISTORICAL RESULTS Comment: Interpretive Data Desirable: ? < 150 mg/dL Borderline High: ? 150 - 199 mg/dL High: ?> 200 mg/dL Literature Reference: See Cholesterol Current interpretive data was last revised on 06. HDL 44 40 - 199 mg/dl HISTORICAL RESULTS Comment: Interpretive Data Less than 40 mg/dL - low; A major risk factor for heart disease. Greater than or equal to 60 mg/dL - High; ??considered protective of heart disease. Literature Reference: See Cholesterol Current interpretive data was last revised on 2007. LDL 99 0 - 129 mg/dl HISTORICAL RESULTS Comment: Interpretive Data Optimal: ? < 100 mg/dL Near Optimal: ?100 - 129 mg/dL Borderline High: ?? 130 - 159 mg/dL High: ?> 160 mg/dL Literature Reference: See Cholesterol Current interpretive data was last revised on 06. Non-HDL cholesterol, calculated 121 mg/dl HISTORICAL RESULTS Comment: Interpretive Data When triglycerides are >200 mg/dL, non-HDL C is a secondary target of therapy, with a goal 30 mg/dL higher than the identified LDL-C goal. Reference: ??See Cholesterol Reference. Current interpretive data was last revised 2011. Serum 09/13/2012 1:09 PM CDT Kraig Ching MD LAB BLOOD ORDERABLES Final Re sult Performing Organization Address City/[facility] Co de Phone Number HISTORICAL RESULTS * (ABNORMAL) Plasma comprehensive metabolic panel (09/13/2012 1:09 PM CDT) Sodium 139 135 - 145 mmol/L HISTORICAL RESULTS K, pl 4.7 3.3 - 4.9 mmol/L HISTORICAL RESULTS Chloride 102 97 - 110 mmol/L HISTORICAL RESULTS CO2 27 22 - 32 mmol/L HISTORICAL RESULTS A. gap 10 0 - 16 mmol/L HISTORICAL RESULTS BUN 29(H) 8 - 25 mg/dl HISTORICAL RESULTS Creatinine 1.12 0.70 - 1.30 mg/dl HISTORICAL RESULTS Calcium 9.4 8.6 - 10.3 mg/dl HISTORICAL RESULTS Protein, pl 7.3 6.5 - 8.5 g/dl HISTORICAL RESULTS Alb 4.7 3.6 - 5.0 g/dl HISTORICAL RESULTS Bilirubin 0.3 0.3 - 1.1 mg/dl HISTORICAL RESULTS Alk phos 45 38 - 126 Units/L HISTORICAL RESULTS AST 25 11 - 47 Units/L HISTORICAL RESULTS ALT 32 7 - 53 Units/L HISTORICAL RESULTS Plasma 09/13/2012 1:0 9 PM CDT Kraig Ching MD LAB BLOOD ORDERABLES Final Re sult Performing Organization Address [facility] Co de Phone Number HISTORICAL RESULTS * Serum glucose (09/13/2012 1:09 PM CDT) Glucose 110 65 - 199 mg/dl HISTORICAL RESULTS Serum 09/13/2012 1:09 PM CDT Kraig Ching MD LAB BLOOD ORDERABLES Final Re sult Performing Organization Address City/[facility]/ZIP Co de Phone Number HISTORICAL RESULTS documented in this encounter Visit Diagnoses Diagnosis Other and unspecified hyperlipidemia Encounter for therapeutic drug monitoring Encounter for long-term (current) use of other medications documented in this encounter Care Teams Clinical Pharmacy Technician Relationship Specialty Start Date End Date Kraig Ching MD [address] [address] PCP - General 01/22/09 07/09/16 documented as of this encounter
--- OUTSIDE RECORDS SUMMARY | 2024-03-31 05:05 | XMS_ITS | Encounter Summary ---
Author Organization [facility] Facility Care Team Providers Care Body Trimmer Upholsterer Name Role Phone Kraig Ching MD Primary Care Provider [phone] Encounter Details Date Type Department Care Team (Late st Contact Info) Description 05/23/2008 - 05/23/2008 11:59 PM NATIONAL SERVICE OFFICER Hospital Encounter [facility] Kraig Ching MD [address] [address] Chest pain Social History Tobacco Use Types Packs/Day Years Used Date Smoking Tobacco: Never Assessed Sex and Gender Information Value Date Recorded Sex Assigned at Not on file Legal Sex Male 4:46 PM NATIONAL SERVICE OFFICER Gender Identity Not on file Sexual Orientation Not on file documented as of this encounter Medications at Time of Discharge blood glucose diagnostic (SURESTEP TEST) strip Test [...] as of this encounter Visit Diagnoses Diagnosis Chest pain Unspecified chest pain documented in this encounter Care Teams Body Trimmer Upholsterer Relationship Specialty Start Date End Date Kraig Ching MD [address] [facility] [address] [place] [address] PCP - General 03/16/07 09/19/08 documented as of this encounter
--- OUTSIDE RECORDS SUMMARY | 2024-03-31 05:05 | XMS_ITS | Encounter Summary ---
Author Organization [facility] Facility Care Team Providers Care Wastewater Manager Name Role Phone Kraig Ching MD Primary Care Provider [phone] Encounter Details Date Type Department Care Team (Late st Contact Info) Description 09/20/2008 - 09/20/2008 11:59 PM CDT Hospital Encounter [facility] Kraig Ching MD [address] [address] Benign essential hypertension; Pure hypercholesterolemia ; Encounter for long-term (current) use of other medications Social History Tobacco Use Types Packs/Day Years Used Date Smoking Tobacco: Never Assessed Sex and Gender Information Value Date Recorded Sex Assigned at Not on file Legal Sex Male 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
--- OUTSIDE RECORDS SUMMARY | 2024-03-31 05:05 | XMS_ITS | Encounter Summary ---
Author Organization [facility] Facility Care Team Providers Care Bail Bondsman Name Role Phone Unavailable Primary Care Provider Unavailabl e Encounter Details Date Type Department Care Team (Late st Contact Info) Description 04/14/2006 12:16 PM BORING MILL OPERATOR - 04/14/2006 4:00 PM BORING MILL OPERATOR Hospital Encounter [facility] [address] [address] Social History Tobacco Use Types Packs/Day Years Used Date Smoking Tobacco: Never Assessed Sex and Gender Information Value Date Recorded Sex Assigned at Not on file Legal Sex Male 4:46 PM BORING MILL OPERATOR Gender Identity Not on file Sexual Orientation Not on file documented as of this encounter Plan of Treatment Not on file documented as of this encounter Visit Diagnoses Not on filedocumented in this encounter
--- OUTSIDE RECORDS SUMMARY | 2024-03-31 05:05 | XMS_ITS | Encounter Summary ---
Author Organization [facility] Facility Care Team Providers Care Artificial Flowers Dyer Name Role Phone Kraig Ching MD Primary Care Provider [phone] Encounter Details Date Type Department Care Team (Late st Contact Info) Description 06/20/2012 - 06/20/2012 11:59 PM CDT Hospital Encounter [facility] Kraig Ching MD [address] [id number] Hematuria; Acquired cyst of kidney; Personal history of malignant neoplasm of prostate Social History Tobacco Use Types Packs/Day Years Used Date Smoking Tobacco: Never Assessed Sex and Gender Information Value Date Recorded Sex Assigned at Not on file 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 ZAIRA CLEMENTS, FINAL REPORT The radiology attending physician has personally reviewed this study, and has reviewed and/or edited this written report and agrees with it. ACC# ??Date Time ??Exam [id number] Jun 20, 2012 14:00:00 [id number] US Retroper cmp EXAMINATION: ?COMPLETE RENAL SONOGRAM HISTORY: 71-year-old male with inflatable penile prosthesis for erectile dysfunction, status post radical prostatectomy for prostate cancer in 2006. ??Patient now presents with recent episode of hematuria. FINDINGS: The echogenicity of both kidneys is normal. ??There is no hydronephrosis in either kidney. ??There are no renal calculi visualized. The right kidney measures 13.2 cm in length, and the left, 13.3 cm in length. There is a 3.0 cm x 2.9 cm exophytic simple cyst along the midpole of the right kidney. ??The bladder is decompressed and incompletely evaluated. There is no large bladder mass noted. There is a penile prosthesis in place. ?? IMPRESSION: 1. Exophytic simple cyst along the midpole of the right kidney. 2. Decompressed bladder incompletely evaluated on today's examination. ?? Requested By: Kraig Ching ??Edel Dictated By: ?? ZAIRA CLEMENTS, ?? on Jun 20 2012 ??3:40P This document has been electronically signed by: ANDRE ESCOTO M.D. on Jun 20 2012 ??3:52P Procedure Note Provider, MD Coleen - 08/07/2016 ANDRE ESCOTO M.D. ZAIRA CLEMENTS, FINAL REPORT The radiology attending physician has personally reviewed this study, and has reviewed and/or edited this written report and agrees with it. ACC# Date Time Exam [id number] Jun 20, 2012 14:00:00 [id number] US Retroper cmp EXAMINATION: COMPLETE RENAL SONOGRAM HISTORY: 71-year-old male with inflatable penile prosthesis for erectile dysfunction, status post radical prostatectomy for prostate cancer in 2006. Patient now presents with recent episode of hematuria. FINDINGS: The echogenicity of both kidneys is normal. There is no hydronephrosis in either kidney. There are no renal calculi visualized. The right kidney measures 13.2 cm in length, and the left, 13.3 cm in length. There is a 3.0 cm x 2.9 cm exophytic simple cyst along the midpole of the right kidney. The bladder is decompressed and incompletely evaluated. There is no large bladder mass noted. There is a penile prosthesis in place. IMPRESSION: 1. Exophytic simple cyst along the midpole of the right kidney. 2. Decompressed bladder incompletely evaluated on today's examination. Requested By: Kraig Ching M.D. Dictated By: ZAIRA CLEMENTS on Jun 20 2012 3:40P This document has been electronically signed by: ANDRE ESCOTO M.D. on Jun 20 2012 3:52P Historical Provider MD RAYGOZA US PROCEDURES Final R esult documented in this encounter Visit Diagnoses Diagnosis Hematuria Hematuria, unspecified Acquired cyst of kidney Personal history of malignant neoplasm of prostate documented in this encounter Care Teams Artificial Flowers Dyer Relationship Specialty Start Date End Date Kraig Ching MD [address] [facility] [address] [place] [address] PCP - General 01/22/09 07/09/16 documented as of this encounter
--- OUTSIDE RECORDS SUMMARY | 2024-03-31 05:05 | XMS_ITS | Encounter Summary ---
Author Organization [facility] Facility Care Team Providers Care Rn Shift Mgr Name Role Phone Kraig Ching MD Primary Care Provider [phone] Encounter Details Date Type Department Care Team (Late st Contact Info) Description 07/05/2008 12:00 PM CDT - 07/05/2008 4:00 PM T Hospital Encounter [facility] Matt Luna MD [address] [facility] [address] [place] [address] Pain in joint, lower leg Social History Tobacco Use Types Packs/Day Years Used Date Smoking Tobacco: Never Assessed Sex and Gender Information Value Date Recorded Sex Assigned at Not on file 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
--- OUTSIDE RECORDS SUMMARY | 2024-03-31 05:05 | XMS_ITS | Encounter Summary ---
Author Organization [facility] Facility Care Team Providers Care Cocktail Server Name Role Phone Kraig Ching MD Primary Care Provider [phone] Encounter Details Date Type Department Care Team (Latest Contact Info) Description 07/09/2010 - 07/09/2010 11:59 PM CDT Hospital Encounter [facility] Kraig Ching MD [address] [address] Backache; Type 2 or unspecified type diabetes mellitus; Encounter for long-term (current) use of other medications; Benign essential hypertension; Pure hypercholesterolemia Social History Tobacco Use Types Packs/Day Years Used Date Smoking Tobacco: Never Assessed Sex and Gender Information Value Date Recorded Sex Assigned at Not on file 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
--- OUTSIDE RECORDS SUMMARY | 2024-03-31 05:05 | XMS_ITS | Encounter Summary ---
Author Organization [facility] Facility Care Team Providers Care Incubator Tender Name Role Phone Kraig Ching MD Primary Care Provider [phone] Encounter Details Date Type Department Care Team (Late st Contact Info) Description 11/26/2014 - 11/26/2014 11:59 PM T [facility] [address] [id number] Other and unspecified hyperlipidemia; Encounter for therapeutic drug monitoring Social History Tobacco Use Types Packs/Day Years Used Date Smoking Tobacco: Never Assessed Sex and Gender Information Value Date Recorded Sex Assigned at Not on file Legal Sex Male 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 MILK 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 Gender Identity Not on file Sexual Orientation [...] Name Priority Date/Time Associated Diagnosis Comments SERUM LIPID PANEL Routine 11/26/2014 3:0 6 PM CDT SERUM GLUCOSE Routine 11/26/2014 3:06 PM CDT PLASMA COMPREHENSIVE METABOLIC PANEL Routine 11/26/2014 3:06 PM CDT BLOOD CELL COUNT Routine 11/26/2014 3:06 PM CDT DISCHARGE LABORATORY CUMULATIVE REPORT 11/26/2014 documented in this encounter Results * (ABNORMAL) Serum lipid panel (11/26/2014 3:06 PM CDT) Cholesterol 224(H) 0 - 200 mg/dl HISTORICAL RESULTS Comment: Interpretive Data Desirable: ?<200 mg/dL Borderline high: ??200-239 mg/dL High: ? >240 mg/dL Literature Reference: National Cholesterol Education Program (NCEP) Expert Panel on Detection, Evaluation, and Treatment of High Blood Cholesterol in Adults (Adult Treatment Panel III). ??Circulation 2004; 110:227. Current interpretive data was last revised on 2005. Triglycerides 180(H) 0 - 150 mg/dl HISTORICAL RESULTS Comment: Interpretive Data Desirable: ? < 150 mg/dL Borderline High: ? 150 - 199 mg/dL High: ?> 200 mg/dL Literature Reference: See Cholesterol Current interpretive data was last revised on 06. HDL 38(L) 40 - 199 mg/dl HISTORICAL RESULTS Comment: Interpretive Data Less than 40 mg/dL - low; A major risk factor for heart disease. Greater than or equal to 60 mg/dL - High; ??considered protective of heart disease. Literature Reference: See Cholesterol Current interpretive data was last revised on 2007. LDL 150(H) 0 - 129 mg/dl HISTORICAL RESULTS Comment: Interpretive Data Optimal: ? < 100 mg/dL Near Optimal: ?100 - 129 mg/dL Borderline High: ?? 130 - 159 mg/dL High: ?> 160 mg/dL Literature Reference: See Cholesterol Current interpretive data was last revised on 06. Non-HDL cholesterol, calculated 186 mg/dl HISTORICAL RESULTS Comment: Interpretive Data When triglycerides are >200 mg/dL, non-HDL C is a secondary target of therapy, with a goal 30 mg/dL higher than the identified LDL-C goal. Reference: ??See Cholesterol Reference. Current interpretive data was last revised 2011. Serum 11/26/2014 3:06 PM CDT Kraig Ching MD LAB BLOOD ORDERABLES Final Re sult HISTORICAL RESULTS * (ABNORMAL) Plasma comprehensive metabolic panel (11/26/2014 3:06 PM CDT) Sodium 141 135 - 145 mmol/L HISTORICAL RESULTS K, pl 4.0 3.3 - 4.9 mmol/L HISTORICAL RESULTS Chloride 102 97 - 110 mmol/L HISTORICAL RESULTS CO2 28 22 - 32 mmol/L HISTORICAL RESULTS A. gap 11 0 - 16 mmol/L HISTORICAL RESULTS BUN 25 8 - 25 mg/dl HISTORICAL RESULTS Creatinine 1.34(H) 0.70 - 1.30 mg/dl HISTORICAL RESULTS Calcium 9.8 8.6 - 10.3 mg/dl HISTORICAL RESULTS Protein, pl 7.2 6.5 - 8.5 g/dl HISTORICAL RESULTS Alb 4.5 3.6 - 5.0 g/dl HISTORICAL RESULTS Bilirubin 0.3 0.3 - 1.1 mg/dl HISTORICAL RESULTS Alk phos 50 38 - 126 Units/L HISTORICAL RESULTS AST 19 11 - 47 Units/L HISTORICAL RESULTS ALT 18 7 - 53 Units/L HISTORICAL RESULTS Plasma 11/26/2014 3:06 PM CDT Kraig Ching MD LAB BLOOD ORDERABLES Final Re sult HISTORICAL RESULTS * Serum glucose (11/26/2014 3:06 PM CDT) Glucose 85 70 - 199 mg/dl HISTORICAL RESULTS Serum 11/26/2014 3:06 PM CDT Kraig Ching MD LAB BLOOD ORDERABLES Final Re sult Performing Organization Address [facility] Co de Phone Number HISTORICAL RESULTS * (ABNORMAL) Blood cell count [CBC] express (11/26/2014 3:06 PM CDT) WBC 8.7 3.8 - 9.8 K/cumm HISTORICAL RESULTS RBC 4.41(L) 4.50 - 5.70 M/cumm HISTORICAL RESULTS Hgb 12.6(L) 13.8 - 17.2 g/dl HISTORICAL RESULTS Hct 39.5(L) 40.7 - 50.3 % HISTORICAL RESULTS MCV 89.8 80.0 - 97.6 fl HISTORICAL RESULTS MCH 28.5 26.7 - 33.7 pg HISTORICAL RESULTS MCHC 31.8(L) 32.7 - 35.5 g/dl HISTORICAL RESULTS Rdw 14.8(H) 11.8 - 14.6 % HISTORICAL RESULTS Platelets 415 140 - 440 K/cumm HISTORICAL RESULTS MPV 8.1 6.8 - 10.4 fl HISTORICAL RESULTS Blood specimen (specimen) 11/26/2014 3:06 PM CDT Kraig Ching MD LAB BLOOD ORDERABLES Final Re sult HISTORICAL RESULTS * DISCHARGE LABORATORY CUMULATIVE REPORT (11/26/2014) Narrative 11/26/2014 Ordered by an unspecified provider. Historical Provider LAB BLOOD ORDERABLES Casi l Result documented in this encounter Visit Diagnoses Diagnosis Other and unspecified hyperlipidemia Encounter for therapeutic drug monitoring documented in this encounter Care Teams Incubator Tender Relationship Specialty Start Date End Date Kraig Ching MD [address] [address] PCP - General 01/22/09 07/09/16 documented as of this encounter
--- OUTSIDE RECORDS SUMMARY | 2024-03-31 05:05 | XMS_ITS | Encounter Summary ---
Author Organization [facility] Facility Care Team Providers Care Hat Body Inspector Name Role Phone Kraig Ching MD Primary Care Provider [phone] Encounter Details Date Type Department Care Team (Late st Contact Info) Description 06/20/2009 7:10 AM TRAFFIC ANALYSIS TECHNICIAN - 06/20/2009 4:00 PM [facility] Hospital Encounter [facility] Benign neoplasm of rectum and anal canal; Diverticulosis of colon; Internal hemorrhoids; Essential hypertension; Type 2 or unspecified type diabetes mellitus; Chronic ulcer of skin (CMS/HCC) (HCC); Acute pancreatitis; Personal history of malignant neoplasm of prostate Social History Tobacco Use Types Packs/Day Years Used Date Smoking Tobacco: Never Assessed Sex and Gender Information Value Date Recorded Sex Assigned at Not on file Legal Sex Male 4:46 PM TRAFFIC ANALYSIS TECHNICIAN Gender Identity Not on file Sexual [...] of this encounter Visit Diagnoses Diagnosis Benign neoplasm of rectum and anal canal Diverticulosis of colon Diverticulosis of colon (without mention of hemorrhage) Internal hemorrhoids Internal hemorrhoids without mention of complication Essential hypertension Unspecified essential hypertension Type 2 or unspecified type diabetes mellitus Chronic ulcer of skin (CMS/HCC) (HCC) Acute pancreatitis Personal history of malignant neoplasm of prostate documented in this encounter Care Teams Hat Body Inspector Relationship Specialty Start Date End Date Kraig Ching MD [address] [address] PCP - General 01/22/09 07/09/16 documented as of this encounter
--- OUTSIDE RECORDS SUMMARY | 2024-03-31 05:05 | XMS_ITS | Encounter Summary ---
Author Organization [facility] Facility Care Team Providers Care Tank Car Mechanic Name Role Phone Kraig Ching MD Primary Care Provider [phone] Encounter Details Date Type Department Care Team (Latest Contact Info) Description 01/22/2015 10:09 AM CDT - 01/22/2015 4:00 PM T Hospital Encounter [facility] Leslee Loera MD PhD [address] [place] [address] [place] [address] Encounter for screening for malignant neoplasm of colon; Benign neoplasm of transverse colon; Diverticulosis of intestine without perforation or abscess without bleeding; Other hemorrhoids; Type 2 diabetes mellitus without complications (CMS/HCC); Essential (primary) hypertension; Hyperlipidemia; Acute pancreatitis; Personal history of malignant neoplasm of prostate; Other penitentiary (current) drug therapy Social History Tobacco Use Types Packs/Day Years Used Date Smoking Tobacco: Never Assessed Sex and Gender Information Value Date Recorded Sex Assigned at Not on file 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 us Historical Provider LAB PATHOLOGY ORDERABLES Final Result * COLONOSCOPY REPORT (01/22/2015) Anatomical Region Laterality Modality Other Narrative 01/22/2015 Ordered by an unspecified provider. us Historical Provider GI PROCEDURE ORDERABLES F inal Result documented in this encounter Visit Diagnoses Diagnosis Encounter for screening for malignant neoplasm of colon Benign neoplasm of transverse colon Diverticulosis of intestine without perforation or abscess without bleeding Other hemorrhoids Type 2 diabetes mellitus without complications (CMS/HCC) (HCC) Essential (primary) hypertension Unspecified essential hypertension Hyperlipidemia Other and unspecified hyperlipidemia Acute pancreatitis Personal history of malignant neoplasm of prostate Other terminal operations manager (current) drug therapy documented in this encounter Care Teams Tank Car Mechanic Relationship Specialty Start Date End Date Kraig Ching MD [address] [facility] [address], [place] [address] PCP - General 01/22/09 07/09/16 documented as of this encounter
--- OUTSIDE RECORDS SUMMARY | 2024-03-31 05:05 | XMS_ITS | Encounter Summary ---
Author Organization [facility] Facility Care Team Providers Care Loin Puller Name Role Phone Kraig Ching MD Primary Care Provider [phone] Encounter Details Date Type Department Care Team (Late st Contact Info) Description 06/21/2007 - 04/11/2008 11:59 PM INTERNATIONAL NURSE Hospital Encounter [facility] Vijay Dunn MD [address] [facility] [address] [place] [address] Social History Tobacco Use Types Packs/Day Years Used Date Smoking Tobacco: Never Assessed Sex and Gender Information Value Date Recorded Sex Assigned at Not on file Legal Sex Male 4:46 PM INTERNATIONAL NURSE Gender Identity Not on file Sexual Orientation [...] on filedocumented in this encounter Care Teams Loin Puller Relationship Specialty Start Date End Date Kraig Ching MD [address] [facility] [address] [place] [address] PCP - General 03/16/07 09/19/08 documented as of this encounter
--- OUTSIDE RECORDS SUMMARY | 2024-03-31 05:05 | XMS_ITS | Encounter Summary ---
Author Organization [facility] Facility Care Team Providers Care Hand Tube Winder Name Role Phone Kraig Ching MD Primary Care Provider [phone] Encounter Details Date Type Department Care Team (Late st Contact Info) Description 05/21/2009 - 05/21/2009 11:59 PM ROUTE SALES SPECIALIST Hospital Encounter [facility] Kraig Ching MD [address] [address] Type 2 or unspecified type diabetes mellitus; Benign essential hypertension; Nocturia; Other malaise and fatigue; Pure hypercholesterolemia ; Anemia; Special screening for malignant neoplasm of prostate Social History Tobacco Use Types Packs/Day Years Used Date Smoking Tobacco: Never Assessed Sex and Gender Information Value Date Recorded Sex Assigned at Not on file Legal Sex Male 4:46 PM ROUTE SALES SPECIALIST Gender Identity Not on file Sexual [...] this encounter Visit Diagnoses Diagnosis Type 2 or unspecified type diabetes mellitus Benign essential hypertension Essential hypertension, benign Nocturia Other malaise and fatigue Pure hypercholesterolemia Anemia Unspecified anemia Special screening for malignant neoplasm of prostate documented in this encounter Care Teams Hand Tube Winder Relationship Specialty Start Date End Date Kraig Ching MD [address] [address] PCP - General 01/22/09 07/09/16 documented as of this encounter
--- OUTSIDE RECORDS SUMMARY | 2024-03-31 05:05 | XMS_ITS | Encounter Summary ---
Author Organization [facility] Facility Care Team Providers Care Assistant Professor Of Philosophy Name Role Phone Kraig Ching MD Primary Care Provider [phone] Kraig Ching MD Primary Care Provider [phone] Kraig Ching MD Primary Care Provider [phone] Encounter Details Date Type Department Care Team (Late st Contact Info) Description 06/19/2008 - 04/11/2009 11:59 PM CLERICAL ASSISTANT Hospital Encounter [facility] Vijay Dunn MD [address] [facility] [address] [place] [address] Social History Tobacco Use Types Packs/Day Years Used Date Smoking Tobacco: Never Assessed Sex and Gender Information Value Date Recorded Sex Assigned at Not on file Legal Sex Male 4:46 PM CLERICAL ASSISTANT Gender Identity Not on file Sexual [...] on filedocumented in this encounter Care Teams Assistant Professor Of Philosophy Relationship Specialty Start Date End Date Kraig Ching MD [address] [address] PCP - General 01/22/09 07/09/16 Kraig Ching MD [address] [address] PCP - General 09/20/08 01/21/09 Kraig Ching MD [address] [address] PCP - General 03/16/07 09/19/08 documented as of this encounter
--- OUTSIDE RECORDS SUMMARY | 2024-03-31 05:05 | XMS_ITS | Encounter Summary ---
Author Organization [facility] Facility Care Team Providers Care Production Administrator Name Role Phone Kraig Ching MD Primary Care Provider [phone] Encounter Details Date Type Department Care Team (Latest Contact Info) Description 09/20/2014 - 09/20/2014 11:59 PM CDT Hospital Encounter [facility] Kraig Ching MD [address] [address] Type 2 or unspecified type diabetes mellitus, uncontrolled; Other and unspecified hyperlipidemia; Abdominal pain, left lower quadrant; Diverticulosis of colon; Nonspecific abnormal findings on radiological and other examination of abdominal area, including retroperitoneum Social History Tobacco Use Types Packs/Day Years Used Date Smoking Tobacco: Never Assessed Sex and Gender Information Value Date Recorded Sex Assigned at Not on file 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 Gender Identity Not on file Sexual Orientation [...] Comments CT ABDOMEN PELVIS W CONTRAST Routine 09/20/2014 3:00 PM CDT URINE MICROALBUMIN, CREATININE Routine 09/20/2014 2:51 PM CDT SERUM LIPID PANEL Routine 09/20/2014 2:5 0 PM CDT SERUM GLUCOSE Routine 09/20/2014 2:50 PM CDT PLASMA COMPREHENSIVE METABOLIC PANEL Routine 09/20/2014 2:50 PM CDT BLOOD CELL COUNT (CBC) Routine 5 2:50 PM CDT BLOOD CREATININE, POINT OF CARE Routine 09/20/2014 2:26 PM CDT DISCHARGE LABORATORY CUMULATIVE REPORT 09/20/2014 documented in this encounter Results * CT Abdomen Pelvis W Contrast (09/20/2014 3:00 PM CDT) Anatomical Region Laterality Modality Body N/A Computed Tomogra phy 09/20/2014 3:00 PM CDT Narrative 09/20/2014 3:53 PM CDT VIVIAN DALEY M.D. HELGA GODINEZ M.D. FINAL REPORT The radiology attending physician has personally reviewed this study, and has reviewed and/or edited this written report and agrees with it. ACC# ??Date Time ??Exam [id number] Sep 20, 2014 15:00:[id number] Abd & Pelvis with cont EXAMINATION: ?? Computed tomography of the abdomen and pelvis with contrast HISTORY: ??Left lower quadrant pain. TECHNIQUE: Computed tomography images of the abdomen and pelvis were obtained according to the standard protocol after the uneventful intravenous administration of Optiray 350 94 mL. COMPARISON: 07/27/2012. FINDINGS: ??The visualized lung bases are clear. There is no pleural effusion. Subpleural fat deposition at the left lung base is likely post inflammatory. The heart size is normal. There is no pericardial effusion. The liver, spleen, adrenal glands, and pancreas are normal. Bilateral renal cysts are present. The stomach and small bowel are normal in course and caliber without evidence of inflammation or obstruction. There is diverticulosis with pericolonic fat stranding of the distal descending colon. There is no fluid collection. The abdominal aorta is normal in course and caliber. The appendix is normal. The urinary bladder is normal. The prostate is surgically absent. A penile prosthesis is present. There is no free fluid or air within the abdomen or pelvis. There is no abdominal, pelvic, or inguinal lymphadenopathy. There is grade I anterolisthesis of L4 on L5. There is L5-S1 degenerative disc disease. There is osteopenia of the lumbar spine. There is no suspicious lytic or blastic osseous lesion. IMPRESSION: ?? Diverticulosis with pericolonic fat stranding at the distal descending colon. This appearance most likely represents acute uncomplicated diverticulitis, but colonoscopy is recommended when the patient is improved to exclude an underlying mass. These findings were discussed with Dr. Kraig Ching by Dr. Helga Godinez on 09/20/2014 1522. Requested By: Dictated By: ?? HELGA GODINEZ M.D. ??on Sep 20 2014 ??3:24P This document has been electronically signed by: VIVIAN DALEY M.D. on Sep 20 2014 ??3:53P [id number] Procedure Note Provider, MD Coleen - 08/07/2016 VIVIAN DALEY M.D. HELGA GODINEZ M.D. FINAL REPORT The radiology attending physician has personally reviewed this study, and has reviewed and/or edited this written report and agrees with it. ACC# Date Time Exam [id number] Sep 20, 2014 15:00:[id number] Abd & Pelvis with cont EXAMINATION: Computed tomography of the abdomen and pelvis withcontrast HISTORY: Left lower quadrant pain. TECHNIQUE: Computed tomography images of the abdomen and pelvis were obtained according to the standard protocol after the uneventful intravenous administration of Optiray 350 94 mL. COMPARISON: 07/27/2012. FINDINGS: The visualized lung bases are clear. There is no pleural effusion. Subpleural fat deposition at the left lung base is likely post inflammatory. The heart size is normal. There is no pericardialeffusion. The liver, spleen, adrenal glands, and pancreas are normal. Bilateral renal cysts are present. The stomach and small bowel are normal in course and caliber without evidence of inflammation or obstruction. There is diverticulosis with pericolonic fat stranding of the distal descending colon. There is no fluid collection. The abdominal aorta is normal in course and caliber. The appendix is normal. The urinary bladder is normal. The prostate is surgically absent. A penile prosthesis is present. There is no free fluid or air within the abdomen or pelvis. There is no abdominal, pelvic, or inguinal lymphadenopathy. There is grade I anterolisthesis of L4 on L5. There is L5-S1 degenerative disc disease. There is osteopenia of the lumbar spine. There is no suspicious lytic or blastic osseous lesion. IMPRESSION: Diverticulosis with pericolonic fat stranding at the distal descending colon. This appearance most likely represents acute uncomplicated diverticulitis, but colonoscopy is recommended when the patient is improved to exclude an underlying mass. These findings were discussed with Dr. Kraig Ching by Dr. Helga Godinez on 09/20/2014 1522. Requested By: Dictated By: HELGA GODINEZ M.D. on Sep 20 2014 3:24P This document has been electronically signed by: VIVIAN DALEY M.D. on Sep 20 2014 3:53P [id number] us Historical Provider MD RAYGOZA CT PROCEDURES Final R esult * Urine microalbumin, creatinine (09/20/2014 2:51 PM CDT) Microalbumin 5.8 mcg/ml HISTORI CHRISTIAN RESULTS Creatinine, ur 102 mg/dl HISTO RICAL RESULTS Microalbumin/crea t ratio 6 0 - 30 mcg/mg Cr HISTORICAL RESULTS Urine 09/20/2014 2:51 PM CDT us Kraig Ching MD LAB BLOOD ORDERABLES Final Re sult HISTORICAL RESULTS * Serum lipid panel (09/20/2014 2:50 PM CDT) Cholesterol 190 0 - 200 mg/dl HISTORICAL RESULTS Comment: Interpretive Data Desirable: ?<200 mg/dL Borderline high: ??200-239 mg/dL High: ? >240 mg/dL Literature Reference: National Cholesterol Education Program (NCEP) Expert Panel on Detection, Evaluation, and Treatment of High Blood Cholesterol in Adults (Adult Treatment Panel III). ??Circulation 2004; 110:227. Current interpretive data was last revised on 2005. Triglycerides 112 0 - 150 mg/dl HISTORICAL RESULTS Comment: Interpretive Data Desirable: ? < 150 mg/dL Borderline High: ? 150 - 199 mg/dL High: ?> 200 mg/dL Literature Reference: See Cholesterol Current interpretive data was last revised on 06. HDL 41 40 - 199 mg/dl HISTORICAL RESULTS Comment: Interpretive Data Less than 40 mg/dL - low; A major risk factor for heart disease. Greater than or equal to 60 mg/dL - High; ??considered protective of heart disease. Literature Reference: See Cholesterol Current interpretive data was last revised on 2007. LDL 127 0 - 129 mg/dl HISTORICAL RESULTS Comment: Interpretive Data Optimal: ? < 100 mg/dL Near Optimal: ?100 - 129 mg/dL Borderline High: ?? 130 - 159 mg/dL High: ?> 160 mg/dL Literature Reference: See Cholesterol Current interpretive data was last revised on 06. Non-HDL cholesterol, calculated 149 mg/dl HISTORICAL RESULTS Comment: Interpretive Data When triglycerides are >200 mg/dL, non-HDL C is a secondary target of therapy, with a goal 30 mg/dL higher than the identified LDL-C goal. Reference: ??See Cholesterol Reference. Current interpretive data was last revised 2011. Serum 09/20/2014 2:50 PM CDT Kraig Ching MD LAB BLOOD ORDERABLES Final Re sult Performing Organization Address [facility]/ZIP Co de Phone Number HISTORICAL RESULTS * (ABNORMAL) Plasma comprehensive metabolic panel (09/20/2014 2:50 PM CDT) Sodium 139 135 - 145 mmol/L HISTORICAL RESULTS K, pl 4.5 3.3 - 4.9 mmol/L HISTORICAL RESULTS Chloride 100 97 - 110 mmol/L HISTORICAL RESULTS CO2 24 22 - 32 mmol/L HISTORICAL RESULTS A. gap 15 0 - 16 mmol/L HISTORICAL RESULTS BUN 32(H) 8 - 25 mg/dl HISTORICAL RESULTS Creatinine 1.47(H) 0.70 - 1.30 mg/dl HISTORICAL RESULTS Calcium 10.2 8.6 - 10.3 mg/dl HISTORICAL RESULTS Protein, pl 7.8 6.5 - 8.5 g/dl HISTORICAL RESULTS Alb 4.7 3.6 - 5.0 g/dl HISTORICAL RESULTS Bilirubin 0.6 0.3 - 1.1 mg/dl HISTORICAL RESULTS Alk phos 55 38 - 126 Units/L HISTORICAL RESULTS AST 21 11 - 47 Units/L HISTORICAL RESULTS ALT 20 7 - 53 Units/L HISTORICAL RESULTS Plasma 09/20/2014 2:50 PM CDT Kraig Ching MD LAB BLOOD ORDERABLES Final Re sult Performing Organization Address [facility] Co de Phone Number HISTORICAL RESULTS * Serum glucose (09/20/2014 2:50 PM CDT) Glucose 104 70 - 199 mg/dl HISTORICAL RESULTS Serum 09/20/2014 2:50 PM CDT Kraig Ching MD LAB BLOOD ORDERABLES Final Re sult Performing Organization Address [facility] Co de Phone Number HISTORICAL RESULTS * (ABNORMAL) Blood cell count (CBC) (09/20/2014 2:50 PM CDT) WBC 15.7(H) 3.8 - 9.8 K/cumm HISTORICAL RESULTS RBC 4.92 4.50 - 5.70 M/cumm HISTORICAL RESULTS Hgb 14.0 13.8 - 17.2 g/dl HISTORICAL RESULTS Hct 44.0 40.7 - 50.3 % HISTORICAL RESULTS MCV 89.4 80.0 - 97.6 fl HISTORICAL RESULTS MCH 28.4 26.7 - 33.7 pg HISTORICAL RESULTS MCHC 31.8(L) 32.7 - 35.5 g/dl HISTORICAL RESULTS Rdw 14.1 11.8 - 14.6 % HISTORICAL RESULTS Platelets 437 140 - 440 K/cumm HISTORICAL RESULTS MPV 7.9 6.8 - 10.4 fl HISTORICAL RESULTS Neutrophils, abs 12.7(H) 1.8 - 6.6 K/cumm HISTORICAL RESULTS Lymphocytes, abs 1.6 1.2 - 3.3 K/cumm HISTORICAL RESULTS Monocytes, absolute 1.1 0.2 - 1.2 K/cumm HISTORICAL RESULTS Eosinophils, abs 0.3 0.0 - 0.5 K/cumm HISTORICAL RESULTS Basophils, abs 0.0 0.0 - 0.2 K/cumm HISTORICAL RESULTS Neutrophils 80.8(H) 38.7 - 74.5 % HISTORICAL RESULTS Lymphocytes 9.9(L) 20.0 - 54.3 % HISTORICAL RESULTS Monos 7.2 4.3 - 13.5 % HISTORICAL RESULTS Eosinophils 1.9 0.0 - 6.0 % HISTORICAL RESULTS Basophils 0.2 0.0 - 3.0 % HISTORICAL RESULTS Blood specimen (specimen) 09/20/2014 2:50 PM CDT Kraig Ching MD LAB BLOOD ORDERABLES Final Re sult HISTORICAL RESULTS * (ABNORMAL) Blood creatinine, point of care (09/20/2014 2:26 PM CDT) [facility] Creatinine, POC, bld 1.7(H) 0.7 - 1.3 mg/dl HISTORICAL RESULTS Blood specimen (specimen) 09/20/2014 2:26 PM CDT Kraig Ching MD LAB BLOOD ORDERABLES Final Re sult HISTORICAL RESULTS * DISCHARGE LABORATORY CUMULATIVE REPORT (09/20/2014) Narrative 09/20/2014 Ordered by an unspecified provider. Historical Provider LAB BLOOD ORDERABLES Casi l Result documented in this encounter Visit Diagnoses Diagnosis Type 2 or unspecified type diabetes mellitus, uncontrolled Other and unspecified hyperlipidemia Abdominal pain, left lower quadrant Diverticulosis of colon Diverticulosis of colon (without mention of hemorrhage) Nonspecific abnormal findings on radiological and other examination of abdominal area, including retroperitoneum documented in this encounter Care Teams Production Administrator Relationship Specialty Start Date End Date Kraig Ching MD [address] [address] PCP - General 01/22/09 07/09/16 documented as of this encounter
--- OUTSIDE RECORDS SUMMARY | 2024-03-31 05:05 | XMS_ITS | Encounter Summary ---
Author Organization [facility] Facility Care Team Providers Care Public Information Officer Name Role Phone Kraig Ching MD Primary Care Provider [phone] Encounter Details Date Type Department Care Team (Late st Contact Info) Description 07/15/2012 - 07/15/2012 11:59 PM CDT [facility] [address] [facility] [address] [place] [address] Gross hematuria Social History Tobacco Use Types Packs/Day Years Used Date Smoking Tobacco: Never Assessed Sex and Gender Information Value Date Recorded Sex Assigned at Not on file 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 Historical Provider LAB CYTOLOGY ORDERABLES F inal Result documented in this encounter Visit Diagnoses Diagnosis Gross hematuria documented in this encounter Care Teams Public Information Officer Relationship Specialty Start Date End Date Kraig Ching MD [address] [address] PCP - General 01/22/09 07/09/16 documented as of this encounter
--- OUTSIDE RECORDS SUMMARY | 2024-03-31 05:05 | XMS_ITS | Encounter Summary ---
Author Organization [facility] Facility Care Team Providers Care Footwear Factory Worker Name Role Phone Kraig Ching MD Primary Care Provider [phone] Encounter Details Date Type Department Care Team (Late st Contact Info) Description 10/22/2009 - 10/22/2009 11:59 PM CDT Hospital Encounter [facility] Kraig Ching MD [address] [id number] Type 2 or unspecified type diabetes mellitus; Benign essential hypertension; Pure hypercholesterolemia ; Encounter for long-term (current) use of other medications Social History Tobacco Use Types Packs/Day Years Used Date Smoking Tobacco: Never Assessed Sex and Gender Information Value Date Recorded Sex Assigned at Not on file 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
--- OUTSIDE RECORDS SUMMARY | 2024-03-31 05:05 | XMS_ITS | Encounter Summary ---
Author Organization [facility] Facility Care Team Providers Care [employer] French Teacher Name Role Phone Karig Ching MD Primary Care Provider [phone] Encounter Details Date Type Department Care Team (Latest Contact Info) Description 04/30/2011 - 04/30/2011 11:59 PM SPECTROGRAPH OPERATOR Hospital Encounter [facility] Kraig Ching MD [address] [address] Type 2 or unspecified type diabetes mellitus; Encounter for aftercare; Benign essential hypertension; Pure hypercholesterolemia Social History Tobacco Use Types Packs/Day Years Used Date Smoking Tobacco: Never Assessed Sex and Gender Information Value Date Recorded Sex Assigned at Not on file 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
--- OUTSIDE RECORDS SUMMARY | 2024-03-31 05:05 | XMS_ITS | Encounter Summary ---
Author Organization [facility] Facility Care Team Providers Care Traffic Monitor Specialist Name Role Phone Kraig Ching MD Primary Care Provider [phone] Encounter Details Date Type Department Care Team (Late st Contact Info) Description 03/14/2013 - 03/14/2013 11:59 PM SUBSTANCE ABUSE CLINICIAN Hospital Encounter [facility] Kraig Ching MD [address] [address] Type 2 or unspecified type diabetes mellitus; Other and unspecified hyperlipidemia Social History Tobacco Use Types Packs/Day Years Used Date Smoking Tobacco: Never Assessed Sex and Gender Information Value Date Recorded Sex Assigned at Not on file 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 Gender Identity Not on file Sexual [...] Diagnosis Comments DISCHARGE LABORATORY CUMULATIVE REPORT Routine 03/15/2013 9:08 AM SUBSTANCE ABUSE CLINICIAN SERUM LIPID PANEL Routine 03/14/2013 3:4 3 PM SUBSTANCE ABUSE CLINICIAN SERUM GLUCOSE Routine 03/14/2013 3:43 PM SUBSTANCE ABUSE CLINICIAN PLASMA BASIC METABOLIC PANEL Routine 03/14/2013 3:43 PM SUBSTANCE ABUSE CLINICIAN BLOOD HEMOGLOBIN A1C Routine 03/14/2013 3:43 PM SUBSTANCE ABUSE CLINICIAN documented in this encounter Results * Discharge Laboratory Cumulative Report (03/15/2013 9:08 AM SUBSTANCE ABUSE CLINICIAN) 03/15/2013 9:08 AM SUBSTANCE ABUSE CLINICIAN Narrative HISTORICAL RESULTS - 03/15/2013 9:08 AM SUBSTANCE ABUSE CLINICIAN ? [facility] ? Department of Laboratories ?[facility] [address] ?[facility] ?CAM 14-A Patient Name: ? DAVID DREW Rec Number: ?? [id number] Date of : ?1940 Gender/Age: ? Male 72 years Doctor: ? Kraig Ching M.D. Report Date/Time: 03/15/2013 09:08 ?* Abnormal ??C Critical ??f Footnote ??^ Corrected ??L Low ??H High ?i Interp Data ??@ Reference Lab ?Chart Type: Cumulative ? CHEMISTRY ? Standard Blood Chemistry ? 03/14/2013 ? 15:43:25 Test ? Units ?? Reference Sodium ? 137 ? mmol/L ??135-145 Plasma Potassium ? 4.0 ? mmol/L ??3.3-4.9 Chloride ? 99 ?mmol/L ??97-110 Total CO2 ?25 ?mmol/L ??22-32 Anion Gap ?13 ?mmol/L ??0-16 BUN ?25 ?mg/dL ?? 8-25 Creatinine ? 1.17 ?mg/dL ?? 0.70-1.30 Glucose ?107 ? mg/dL ?? 70-199 Total Calcium ?9.8 ? mg/dL ?? 8.6-10.3 Hemoglobin A1C ? 7.0 ??H ?% ? 4.0-6.0 Est Average Glucose ??154 ??f ?mg/dL 03/14/2013 15:43:25 ??Est Average Glucose: The ADA recommends reporting an estimated Average Glucose (eAG) with all Hemoglobin A1c results using the equation derived from a study of 507 normal and diabetic adults. ??Minority populations were underrepresented and children were not included. ??(Diabetes Care 31:2101-7262, 2008). ??The eAG is not equivalent to a fasting glucose. ?Lipids ? 03/14/2013 ? 15:43:25 Test ? Units ??Reference Total Cholesterol i ?252 ??H ?mg/dL ??0-200 HDL Cholesterol i ?39 ??L ? mg/dL ??40-199 Triglycerides i ?185 ??H ?mg/dL ??0-150 LDL Chol (Calc) i ?176 ??H ?mg/dL ??0-129 non-HDL Cholesterol i ??213 ? mg/dL ? CHEMISTRY ?Lipids 03/14/2013 15:43:25 Total Cholesterol: Interpretive Data Desirable: ?<200 mg/dL Borderline high: ??200-239 mg/dL High: ? >240 mg/dL Literature Reference: National Cholesterol Education Program (NCEP) Expert Panel on Detection, Evaluation, and Treatment of High Blood Cholesterol in Adults (Adult Treatment Panel III). ??Circulation 2004; 110:227. Current interpretive data was last revised on 2005. 03/14/2013 15:43:25 HDL Cholesterol: Interpretive Data Less than 40 mg/dL - low; A major risk factor for heart disease. Greater than or equal to 60 mg/dL - High; ??considered protective of heart disease. Literature Reference: See Cholesterol Current interpretive data was last revised on 2007. 03/14/2013 15:43:25 Triglycerides: Interpretive Data Desirable: ? < 150 mg/dL Borderline High: ? 150 - 199 mg/dL High: ?> 200 mg/dL Literature Reference: See Cholesterol Current interpretive data was last revised on 06. 03/14/2013 15:43:25 LDL Chol (Calc): Interpretive Data Optimal: ? < 100 mg/dL Near Optimal: ?100 - 129 mg/dL Borderline High: ?? 130 - 159 mg/dL High: ?> 160 mg/dL Literature Reference: See Cholesterol Current interpretive data was last revised on 06. 03/14/2013 15:43:25 non-HDL Cholesterol: Interpretive Data When triglycerides are >200 mg/dL, non-HDL C is a secondary target of therapy, with a goal 30 mg/dL higher than the identified LDL-C goal. Reference: ??See Cholesterol Reference. Current interpretive data was last revised 2011. ? CANCELLED Collect Date ??Collect Time ??Order Name ? Cancel Reason 03/14/2013 ?15:43:00 ?Basic Metabolic Panel, ? NCHG Order Error ? Serum us Historical Provider MD LAB BLOOD ORDERABLES Casi l Result HISTORICAL RESULTS * (ABNORMAL) Serum lipid panel (03/14/2013 3:43 PM SUBSTANCE ABUSE CLINICIAN) Cholesterol 252(H) 0 - 200 mg/dl HISTORICAL RESULTS Comment: Interpretive Data Desirable: ?<200 mg/dL Borderline high: ??200-239 mg/dL High: ? >240 mg/dL Literature Reference: National Cholesterol Education Program (NCEP) Expert Panel on Detection, Evaluation, and Treatment of High Blood Cholesterol in Adults (Adult Treatment Panel III). ??Circulation 2004; 110:227. Current interpretive data was last revised on 2005. Triglycerides 185(H) 0 - 150 mg/dl HISTORICAL RESULTS Comment: Interpretive Data Desirable: ? < 150 mg/dL Borderline High: ? 150 - 199 mg/dL High: ?> 200 mg/dL Literature Reference: See Cholesterol Current interpretive data was last revised on 06. HDL 39(L) 40 - 199 mg/dl HISTORICAL RESULTS Comment: Interpretive Data Less than 40 mg/dL - low; A major risk factor for heart disease. Greater than or equal to 60 mg/dL - High; ??considered protective of heart disease. Literature Reference: See Cholesterol Current interpretive data was last revised on 2007. LDL 176(H) 0 - 129 mg/dl HISTORICAL RESULTS Comment: Interpretive Data Optimal: ? < 100 mg/dL Near Optimal: ?100 - 129 mg/dL Borderline High: ?? 130 - 159 mg/dL High: ?> 160 mg/dL Literature Reference: See Cholesterol Current interpretive data was last revised on 06. Non-HDL cholesterol, calculated 213 mg/dl HISTORICAL RESULTS Comment: Interpretive Data When triglycerides are >200 mg/dL, non-HDL C is a secondary target of therapy, with a goal 30 mg/dL higher than the identified LDL-C goal. Reference: ??See Cholesterol Reference. Current interpretive data was last revised 2011. Serum 03/14/2013 3:43 PM SUBSTANCE ABUSE CLINICIAN us Kraig Ching MD LAB BLOOD ORDERABLES Final Re sult Performing Organization Address [facility] de Phone Number HISTORICAL RESULTS * Plasma basic metabolic panel (03/14/2013 3:43 PM SUBSTANCE ABUSE CLINICIAN) Sodium 137 135 - 145 mmol/L HISTORICAL RESULTS K, pl 4.0 3.3 - 4.9 mmol/L HISTORICAL RESULTS Chloride 99 97 - 110 mmol/L HISTORICAL RESULTS CO2 25 22 - 32 mmol/L HISTORICAL RESULTS A. gap 13 0 - 16 mmol/L HISTORICAL RESULTS BUN 25 8 - 25 mg/dl HISTORICAL RESULTS Creatinine 1.17 0.70 - 1.30 mg/dl HISTORICAL RESULTS Calcium 9.8 8.6 - 10.3 mg/dl HISTORICAL RESULTS Plasma 03/14/2013 3:43 PM SUBSTANCE ABUSE CLINICIAN us Kraig Ching MD LAB BLOOD ORDERABLES Final Re sult Performing Organization Address [facility] de Phone Number HISTORICAL RESULTS * Serum glucose (03/14/2013 3:43 PM SUBSTANCE ABUSE CLINICIAN) Glucose 107 70 - 199 mg/dl HISTORICAL RESULTS Serum 03/14/2013 3:43 PM SUBSTANCE ABUSE CLINICIAN us Kraig Ching MD LAB BLOOD ORDERABLES Final Re sult Performing Organization Address [facility] de Phone Number HISTORICAL RESULTS * (ABNORMAL) Blood hemoglobin A1C (03/14/2013 3:43 PM SUBSTANCE ABUSE CLINICIAN) Hgb A1C 7.0(H) 4.0 - 6.0 % HISTORICAL RESULTS Estimated average glucose 154 mg/dl HISTORICAL RESULTS Comment: The ADA recommends reporting an estimated Average Glucose (eAG) with all Hemoglobin A1c results using the equation derived from a study of 507 normal and diabetic adults. ??Minority populations were underrepresented and children were not included. ??(Diabetes Care 31:7293-4782, 2008). ??The eAG is not equivalent to a fasting glucose. Blood specimen (specimen) 03/14/2013 3:43 PM SUBSTANCE ABUSE CLINICIAN us Kraig Ching MD LAB BLOOD ORDERABLES Final Re sult HISTORICAL RESULTS documented in this encounter Visit Diagnoses Diagnosis Type 2 or unspecified type diabetes mellitus Other and unspecified hyperlipidemia documented in this encounter Care Teams Traffic Monitor Specialist Relationship Specialty Start Date End Date Kraig Ching MD [address] [address] PCP - General 01/22/09 07/09/16 documented as of this encounter
--- OUTSIDE RECORDS SUMMARY | 2024-03-31 05:05 | XMS_ITS | Encounter Summary ---
Author Organization [facility] Facility Care Team Providers Care Sample Maker Original Name Role Phone Kraig Ching MD Primary Care Provider [phone] Encounter Details Date Type Department Care Team (Late st Contact Info) Description 01/18/2014 - 01/18/2014 11:59 PM CDT Hospital Encounter [facility] Kraig Ching MD [address] [id number] Type 2 or unspecified type diabetes mellitus; Other and unspecified hyperlipidemia Social History Tobacco Use Types Packs/Day Years Used Date Smoking Tobacco: Never Assessed Sex and Gender Information Value Date Recorded Sex Assigned at Not on file 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 [facility] ? Department of Laboratories ? [facility] ? [place] ?[facility] [address] ?[facility] ?[address] ? CAM 14-A ?[id number] Patient Name: ? DAVID DREW Rec Number: ?? [id number] Date of : ?1940 Gender/Age: ? Male 73 years Doctor: ? Kraig Ching M.D. Report Date/Time: 01/19/2014 09:10 ?* Abnormal ??C Critical ??f Footnote ??^ Corrected ??L Low ??H High ?i Interp Data ??@ Reference Lab ?Chart Type: Cumulative ? CHEMISTRY ? Standard Blood Chemistry ?01/18/2014 ?17:21:00 Test ?Units ?? Reference Sodium ?145 ? mmol/L ??135-145 Plasma Potassium ??4.2 ? mmol/L ??3.3-4.9 Chloride ?105 ? mmol/L ??97-110 Total CO2 ? 27 ?mmol/L ??22-32 Anion Gap ? 13 ?mmol/L ??0-16 BUN ? 30 ??H ? mg/dL ?? 8-25 Creatinine ?1.43 ??H ? mg/dL ?? 0.70-1.30 Glucose ? 175 ? mg/dL ?? 70-199 Total Calcium ? 10.2 ?mg/dL ?? 8.6-10.3 ?Lipids ? 01/18/2014 ? 17:21:00 Test ? Units ??Reference Total Cholesterol i ?180 ? mg/dL ??0-200 HDL Cholesterol i ?34 ??L ? mg/dL ??40-199 Triglycerides i ?257 ??H ?mg/dL ??0-150 LDL Chol (Calc) i ?95 ?mg/dL ??0-129 non-HDL Cholesterol i ??146 ? mg/dL 01/18/2014 17:21:00 Total Cholesterol: Interpretive Data Desirable: ?<200 mg/dL Borderline high: ??200-239 mg/dL High: ? >240 mg/dL Literature Reference: National Cholesterol Education Program (NCEP) Expert Panel on Detection, Evaluation, and Treatment of High Blood Cholesterol in Adults (Adult Treatment Panel III). ??Circulation 2004; 110:227. Current interpretive data was last revised on 2005. ? CHEMISTRY ?Lipids 01/18/2014 17:21:00 HDL Cholesterol: Interpretive Data Less than 40 mg/dL - low; A major risk factor for heart disease. Greater than or equal to 60 mg/dL - High; ??considered protective of heart disease. Literature Reference: See Cholesterol Current interpretive data was last revised on 2007. 01/18/2014 17:21:00 Triglycerides: Interpretive Data Desirable: ? < 150 mg/dL Borderline High: ? 150 - 199 mg/dL High: ?> 200 mg/dL Literature Reference: See Cholesterol Current interpretive data was last revised on 06. 01/18/2014 17:21:00 LDL Chol (Calc): Interpretive Data Optimal: ? < 100 mg/dL Near Optimal: ?100 - 129 mg/dL Borderline High: ?? 130 - 159 mg/dL High: ?> 160 mg/dL Literature Reference: See Cholesterol Current interpretive data was last revised on 06. 01/18/2014 17:21:00 non-HDL Cholesterol: Interpretive Data When triglycerides are >200 mg/dL, non-HDL C is a secondary target of therapy, with a goal 30 mg/dL higher than the identified LDL-C goal. Reference: ??See Cholesterol Reference. Current interpretive data was last revised 2011. us Historical Provider LAB BLOOD ORDERABLES Casi glynn Result HISTORICAL RESULTS * (ABNORMAL) Serum lipid panel (01/18/2014 5:21 PM CDT) Cholesterol 180 0 - 200 mg/dl HISTORICAL RESULTS Comment: Interpretive Data Desirable: ?<200 mg/dL Borderline high: ??200-239 mg/dL High: ? >240 mg/dL Literature Reference: National Cholesterol Education Program (NCEP) Expert Panel on Detection, Evaluation, and Treatment of High Blood Cholesterol in Adults (Adult Treatment Panel III). ??Circulation 2004; 110:227. Current interpretive data was last revised on 2005. Triglycerides 257(H) 0 - 150 mg/dl HISTORICAL RESULTS Comment: Interpretive Data Desirable: ? < 150 mg/dL Borderline High: ? 150 - 199 mg/dL High: ?> 200 mg/dL Literature Reference: See Cholesterol Current interpretive data was last revised on 06. HDL 34(L) 40 - 199 mg/dl HISTORICAL RESULTS Comment: Interpretive Data Less than 40 mg/dL - low; A major risk factor for heart disease. Greater than or equal to 60 mg/dL - High; ??considered protective of heart disease. Literature Reference: See Cholesterol Current interpretive data was last revised on 2007. LDL 95 0 - 129 mg/dl HISTORICAL RESULTS Comment: Interpretive Data Optimal: ? < 100 mg/dL Near Optimal: ?100 - 129 mg/dL Borderline High: ?? 130 - 159 mg/dL High: ?> 160 mg/dL Literature Reference: See Cholesterol Current interpretive data was last revised on 06. Non-HDL cholesterol, calculated 146 mg/dl HISTORICAL RESULTS Comment: Interpretive Data When triglycerides are >200 mg/dL, non-HDL C is a secondary target of therapy, with a goal 30 mg/dL higher than the identified LDL-C goal. Reference: ??See Cholesterol Reference. Current interpretive data was last revised 2011. Serum 01/18/2014 5:21 PM CDT us Kraig Ching MD LAB BLOOD ORDERABLES Final Re sult HISTORICAL RESULTS * (ABNORMAL) Plasma basic metabolic panel (01/18/2014 5:21 PM CDT) Sodium 145 135 - 145 mmol/L HISTORICAL RESULTS K, pl 4.2 3.3 - 4.9 mmol/L HISTORICAL RESULTS Chloride 105 97 - 110 mmol/L HISTORICAL RESULTS CO2 27 22 - 32 mmol/L HISTORICAL RESULTS A. gap 13 0 - 16 mmol/L HISTORICAL RESULTS BUN 30(H) 8 - 25 mg/dl HISTORICAL RESULTS Creatinine 1.43(H) 0.70 - 1.30 mg/dl HISTORICAL RESULTS Calcium 10.2 8.6 - 10.3 mg/dl HISTORICAL RESULTS Plasma 01/18/2014 5:21 PM CDT Kraig Ching MD LAB BLOOD ORDERABLES Final Re sult Performing Organization Address City/[facility] Co de Phone Number HISTORICAL RESULTS * Serum glucose (01/18/2014 5:21 PM CDT) Glucose 175 70 - 199 mg/dl HISTORICAL RESULTS Serum 01/18/2014 5:21 PM CDT Kraig Ching MD LAB BLOOD ORDERABLES Final Re sult HISTORICAL RESULTS documented in this encounter Visit Diagnoses Diagnosis Type 2 or unspecified type diabetes mellitus Other and unspecified hyperlipidemia documented in this encounter Care Teams Sample Maker Original Relationship Specialty Start Date End Date Kraig Ching MD [address] [facility] [address] [place] [address] PCP - General 01/22/09 07/09/16 documented as of this encounter
--- OUTSIDE RECORDS SUMMARY | 2024-03-31 05:05 | XMS_ITS | Encounter Summary ---
Author Organization [facility] Facility Care Team Providers Care Repulping Supervisor Name Role Phone Unavailable Primary Care Provider Unavailabl e Encounter Details Date Type Department Care Team (Late st Contact Info) Description 04/27/2006 7:25 AM [facility] - 04/28/2006 10:57 AM [facility] Hospital Encounter LOCATED [facility]IN [facility] [place] [address] [address] Social History Tobacco Use Types Packs/Day Years Used Date Smoking Tobacco: Never Assessed Sex and Gender Information Value Date Recorded Sex Assigned at Not on file 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
--- OUTSIDE RECORDS SUMMARY | 2024-03-31 05:05 | XMS_ITS | Encounter Summary ---
Author Organization 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 gap 9 0 - 16 mmol/L HISTORICAL RESULTS BUN 17 8 - 25 mg/dl HISTORICAL RESULTS Creatinine 1.31(H) 0.70 - 1.30 mg/dl HISTORICAL RESULTS Calcium 9.0 8.6 - 10.3 mg/dl HISTORICAL RESULTS Plasma 09/24/2014 2:14 PM CDT Kraig Ching MD LAB BLOOD ORDERABLES Final Re sult Performing Organization Address City/[facility] Co de Phone Number HISTORICAL RESULTS * Serum glucose (09/24/2014 2:14 PM CDT) Glucose 180 70 - 199 mg/dl HISTORICAL RESULTS Serum 09/24/2014 2:14 PM CDT Kraig Ching MD LAB BLOOD ORDERABLES Final Re sult HISTORICAL RESULTS * DISCHARGE LABORATORY CUMULATIVE REPORT (09/24/2014) Narrative 09/24/2014 Ordered by an unspecified provider. us Historical Provider LAB BLOOD ORDERABLES Casi l Result documented in this encounter Visit Diagnoses Diagnosis Encounter for therapeutic drug monitoring documented in this encounter Care Teams Embedded Software Developer Relationship Specialty Start Date End Date Kraig Ching MD [address] [facility] [address] [place] [address] PCP - General 01/22/09 07/09/16 documented as of this encounter
--- OUTSIDE RECORDS SUMMARY | 2024-03-31 05:05 | XMS_ITS | Encounter Summary ---
Author Organization [facility] Facility Care Team Providers Care Sanitation Officer Name Role Phone Kraig Ching MD Primary Care Provider [phone] Encounter Details Date Type Department Care Team (Late st Contact Info) Description 09/14/2011 - 09/14/2011 11:59 PM T Hospital Encounter [facility] Kraig Ching MD [address] [address] Type 2 or unspecified type diabetes mellitus; Pure hypercholesterolemia ; Benign essential hypertension; Encounter for long-term (current) use of other medications Social History Tobacco Use Types Packs/Day Years Used Date Smoking Tobacco: Never Assessed Sex and Gender Information Value Date Recorded Sex Assigned at Not on file 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
--- OUTSIDE RECORDS SUMMARY | 2024-03-31 05:05 | XMS_ITS | Encounter Summary ---
Author Organization [facility] Facility Care Team Providers Care Willow Analyst Name Role Phone Kraig Ching MD Primary Care Provider [phone] Encounter Details Date Type Department Care Team (Late st Contact Info) Description 06/04/2008 - 06/04/2008 11:59 PM CONFIDENTIAL INVESTIGATOR Hospital Encounter [facility] Kraig Ching MD [address] [address] Other chest pain; Cardiomegaly; Type 2 or unspecified type diabetes mellitus; Pure hypercholesterolemia ; Essential hypertension; Tobacco use disorder Social History Tobacco Use Types Packs/Day Years Used Date Smoking Tobacco: Never Assessed Sex and Gender Information Value Date Recorded Sex Assigned at Not on file 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
--- OUTSIDE RECORDS SUMMARY | 2024-03-31 05:05 | XMS_ITS | Encounter Summary ---
Author Organization [facility] Facility Care Team Providers Care Enforcement Officer Name Role Phone Kraig Ching MD Primary Care Provider [phone] Encounter Details Date Type Department Care Team (Late st Contact Info) Description 07/27/2012 - 07/27/2012 11:59 PM CDT Hospital Encounter [facility] [place] [address] [facility] [address] [place] [address] Gross hematuria Social History Tobacco Use Types Packs/Day Years Used Date Smoking Tobacco: Never Assessed Sex and Gender Information Value Date Recorded Sex Assigned at Not on file 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 DAVID SCHAEFFER, FINAL REPORT The radiology attending physician has personally reviewed this study, and has reviewed and/or edited this written report and agrees with it. ACC# ??Date Time ??Exam [id number] Jul 27, 2012 07:48:[id number] Abd & Pelvis wwo cont [id number] Jul 27, 2012 07:48:00 [id number] 3-DRendering sep Modality EXAMINATION: 1. CT UROGRAPHY WITH AND WITHOUT CONTRAST 2. 3D RENDERING DATE: 07/27/2012 HISTORY: 71-year-old male with hematuria. TECHNIQUE: CT urography of the abdomen and pelvis performed prior to and following uneventful intravenous administration of 125 mL Optiray 350 in the nephrographic and excretory phases. Post-processed 3D images were generated on a dedicated workstation and also reviewed. COMPARISON: None available. FINDINGS: UROGRAPHIC FINDINGS: Right Kidney: The right kidney measures 12.7 cm pole to pole. The upper pole exophytic cyst is present. No calculi are seen. There is no hydronephrosis. The ureter is normal. The urothelium appears normal. Left Kidney: The left kidney measures 11.9 cm pole to pole. There is a lower pole cyst. No calculi are seen. There is no hydronephrosis. The ureter is normal. The urothelium appears normal. There are 2 left renal arteries. Bladder: Bladder wall is mild diffusely thickened, but is not well distended. No masses are seen. Penile implant is present. 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 NON-UROGRAPHIC FINDINGS: There is mild atelectasis at the left base. ??Liver, spleen, pancreas and adrenal glands are normal. There is no bowel obstruction. There is no abdominal or pelvic lymphadenopathy nor ascites. ??Bilateral fat-containing inguinal hernias are noted. Bone window demonstrate no suspicious osteolytic or osteoblastic lesions. There is noninstrumented partial fusion of L5-S1 related to degenerative disc disease. ?? IMPRESSION: 1. Mild circumferential bladder wall thickening without masses, may in part be due to incomplete distention. 2. No renal stones, hydronephrosis or filling defects. ?? Requested By: RAMIRO TREVINO M.D. Dictated By: ?? DAVID SCHAEFFER, ?? on Jul 27 2012 11:21A This document has been electronically signed by: GALA ARROYO M.D. on Jul 27 2012 12:37P Procedure Note Provider, MD Coleen - 08/07/2016 GALA ARROYO M.D. DAVID SCHAEFFER, FINAL REPORT The radiology attending physician has personally reviewed this study, and has reviewed and/or edited this written report and agrees with it. ACC# Date Time Exam [id number] Jul 27, 2012 07:48:[id number] Abd & Pelvis wwo cont [id number] Jul 27, 2012 07:48:00 [id number] 3-DRendering sep Modality EXAMINATION: 1. CT UROGRAPHY WITH AND WITHOUT CONTRAST 2. 3D RENDERING DATE: 07/27/2012 HISTORY: 71-year-old male with hematuria. TECHNIQUE: CT urography of the abdomen and pelvis performed prior to and following uneventful intravenous administration of 125 mL Optiray 350 in the nephrographic and excretory phases. Post-processed 3D images were generated on a dedicated workstation and also reviewed. COMPARISON: None available. FINDINGS: UROGRAPHIC FINDINGS: Right Kidney: The right kidney measures 12.7 cm pole to pole. The upper pole exophytic cyst is present. No calculi are seen. There is no hydronephrosis. The ureter is normal. The urothelium appears normal. Left Kidney: The left kidney measures 11.9 cm pole to pole. There is a lower pole cyst. No calculi are seen. There is no hydronephrosis. The ureter is normal. The urothelium appears normal. There are 2 left renal arteries. Bladder: Bladder wall is mild diffusely thickened, but is not well distended. No masses are seen. Penile implant is present. 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 NON-UROGRAPHIC FINDINGS: There is mild atelectasis at the left base. Liver, spleen, pancreas and adrenal glands are normal. There is no bowel obstruction. There is no abdominal or pelvic lymphadenopathy nor ascites. Bilateral fat-containing inguinal hernias are noted. Bone window demonstrate no suspicious osteolytic or osteoblastic lesions. There is noninstrumented partial fusion of L5-S1 related to degenerative disc disease. IMPRESSION: 1. Mild circumferential bladder wall thickening without masses, may in part be due to incomplete distention. 2. No renal stones, hydronephrosis or filling defects. Requested By: RMAIRO TREVINO M.D. Dictated By: DAVID SCHAEFFER, on Jul 27 2012 11:21A This document has been electronically signed by: GALA ARROYO M.D. on Jul 27 2012 12:37P us Historical Provider MD RAYGOZA MRI PROCEDURES Final Result * CT Abdomen Pelvis W WO Contrast (07/27/2012 7:48 AM CDT) Anatomical Region Laterality Modality Body N/A Computed Tomogra phy 07/27/2012 7:48 AM CDT Narrative 07/27/2012 12:37 PM CDT GALA ARROYO M.D. DAVID SCHAEFFER, FINAL REPORT The radiology attending physician has personally reviewed this study, and has reviewed and/or edited this written report and agrees with it. ACC# ??Date Time ??Exam [id number] Jul 27, 2012 07:48:[id number] Abd & Pelvis wwo cont [id number] Jul 27, 2012 07:48:00 [id number] 3-DRendering sep Modality EXAMINATION: 1. CT UROGRAPHY WITH AND WITHOUT CONTRAST 2. 3D RENDERING DATE: 07/27/2012 HISTORY: 71-year-old male with hematuria. TECHNIQUE: CT urography of the abdomen and pelvis performed prior to and following uneventful intravenous administration of 125 mL Optiray 350 in the nephrographic and excretory phases. Post-processed 3D images were generated on a dedicated workstation and also reviewed. COMPARISON: None available. FINDINGS: UROGRAPHIC FINDINGS: Right Kidney: The right kidney measures 12.7 cm pole to pole. The upper pole exophytic cyst is present. No calculi are seen. There is no hydronephrosis. The ureter is normal. The urothelium appears normal. Left Kidney: The left kidney measures 11.9 cm pole to pole. There is a lower pole cyst. No calculi are seen. There is no hydronephrosis. The ureter is normal. The urothelium appears normal. There are 2 left renal arteries. Bladder: Bladder wall is mild diffusely thickened, but is not well distended. No masses are seen. Penile implant is present. 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 NON-UROGRAPHIC FINDINGS: There is mild atelectasis at the left base. ??Liver, spleen, pancreas and adrenal glands are normal. There is no bowel obstruction. There is no abdominal or pelvic lymphadenopathy nor ascites. ??Bilateral fat-containing inguinal hernias are noted. Bone window demonstrate no suspicious osteolytic or osteoblastic lesions. There is noninstrumented partial fusion of L5-S1 related to degenerative disc disease. ?? IMPRESSION: 1. Mild circumferential bladder wall thickening without masses, may in part be due to incomplete distention. 2. No renal stones, hydronephrosis or filling defects. ?? Requested By: RAMIRO TREVINO M.D. Dictated By: ?? DAVID SCHAEFFER, ?? on Jul 27 2012 11:21A This document has been electronically signed by: GALA ARROYO M.D. on Jul 27 2012 12:37P Procedure Note Provider, MD Coleen - 08/07/2016 GALA ARROYO M.D. DAVID SCHAEFFER, FINAL REPORT The radiology attending physician has personally reviewed this study, and has reviewed and/or edited this written report and agrees with it. ACC# Date Time Exam [id number] Jul 27, 2012 07:48:[id number] Abd & Pelvis wwo cont [id number] Jul 27, 2012 07:48:00 [id number] 3-DRendering sep Modality EXAMINATION: 1. CT UROGRAPHY WITH AND WITHOUT CONTRAST 2. 3D RENDERING DATE: 07/27/2012 HISTORY: 71-year-old male with hematuria. TECHNIQUE: CT urography of the abdomen and pelvis performed prior to and following uneventful intravenous administration of 125 mL Optiray 350 in the nephrographic and excretory phases. Post-processed 3D images were generated on a dedicated workstation and also reviewed. COMPARISON: None available. FINDINGS: UROGRAPHIC FINDINGS: Right Kidney: The right kidney measures 12.7 cm pole to pole. The upper pole exophytic cyst is present. No calculi are seen. There is no hydronephrosis. The ureter is normal. The urothelium appears normal. Left Kidney: The left kidney measures 11.9 cm pole to pole. There is a lower pole cyst. No calculi are seen. There is no hydronephrosis. The ureter is normal. The urothelium appears normal. There are 2 left renal arteries. Bladder: Bladder wall is mild diffusely thickened, but is not well distended. No masses are seen. Penile implant is present. 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 NON-UROGRAPHIC FINDINGS: There is mild atelectasis at the left base. Liver, spleen, pancreas and adrenal glands are normal. There is no bowel obstruction. There is no abdominal or pelvic lymphadenopathy nor ascites. Bilateral fat-containing inguinal hernias are noted. Bone window demonstrate no suspicious osteolytic or osteoblastic lesions. There is noninstrumented partial fusion of L5-S1 related to degenerative disc disease. IMPRESSION: 1. Mild circumferential bladder wall thickening without masses, may in part be due to incomplete distention. 2. No renal stones, hydronephrosis or filling defects. Requested By: RAMIRO TREVINO M.D. Dictated By: DAVID SCHAEFFER on Jul 27 2012 11:21A This document has been electronically signed by: GALA ARROYO M.D. on Jul 27 2012 12:37P us Historical Provider MD RAYGOZA CT PROCEDURES Final R esult documented in this encounter Visit Diagnoses Diagnosis Gross hematuria documented in this encounter Care Teams Enforcement Officer Relationship Specialty Start Date End Date Kraig Ching MD [address] [address] PCP - General 01/22/09 07/09/16 documented as of this encounter
--- OUTSIDE RECORDS SUMMARY | 2024-03-31 05:05 | XMS_ITS | Encounter Summary ---
Author Organization [facility] Facility Care Team Providers Care Director Of Retention Name Role Phone Kraig Ching MD Primary Care Provider [phone] Kraig Ching MD Primary Care Provider [phone] Encounter Details Date Type Department Care Team (Late st Contact Info) Description 07/13/2006 - 04/11/2007 11:59 PM SAS PROGRAMMER ANALYST Hospital Encounter [facility] CLINCON[facility]ay Nevarez MD [address] [facility] [address] [place] [address] Social History Tobacco Use Types Packs/Day Years Used Date Smoking Tobacco: Never Assessed Sex and Gender Information Value Date Recorded Sex Assigned at Not on file Legal Sex Male 4:46 PM SAS PROGRAMMER ANALYST Gender Identity Not on file Sexual Orientation Not on file documented as of this encounter Medications at Time of Discharge lisinopril (PRINIVIL,ZESTRIL ) 40 mg tablet TAKE ONE BY MOUTH ONE TIME PER DAY 90 3 02/26/2007 12/24/2016 metFORMIN (GLUCOPHAGE) 1,000 mg tablet TAKE 1 TABLET BY MOUTH TWICE DAILY 180 5 02/26/2007 09/12/2017 documented as of this encounter Plan of Treatment Not on file documented as of this encounter Visit Diagnoses Not on filedocumented in this encounter Care Teams Director Of Retention Relationship Specialty Start Date End Date Kraig Ching MD [address] [place] [address] PCP - General 03/16/07 09/19/08 Kraig Ching MD [address] [address] PCP - General 06/23/06 03/15/07 documented as of this encounter
--- OUTSIDE RECORDS SUMMARY | 2024-03-31 05:05 | XMS_ITS | Encounter Summary ---
Author Organization [facility] Facility Care Team Providers Care Instructional Services Librarian Name Role Phone Kraig Ching MD Primary Care Provider [phone] Encounter Details Date Type Department Care Team (Late st Contact Info) Description 01/22/2009 - 01/22/2009 11:59 PM CDT Hospital Encounter [facility] Kraig Ching MD [address] [id number] Type 2 or unspecified type diabetes mellitus; Benign essential hypertension; Pure hypercholesterolemia ; Encounter for long-term (current) use of other medications Social History Tobacco Use Types Packs/Day Years Used Date Smoking Tobacco: Never Assessed Sex and Gender Information Value Date Recorded Sex Assigned at Not on file 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
--- OUTSIDE RECORDS SUMMARY | 2024-03-31 05:05 | XMS_ITS | Encounter Summary ---
Author Organization [facility] Facility Care Team Providers Care Unemployment Inspector Name Role Phone Kraig Ching MD Primary Care Provider [phone] Encounter Details Date Type Department Care Team (Late st Contact Info) Description 12/02/2010 - 12/02/2010 11:59 PM CDT Hospital Encounter [facility] Kraig Ching MD [address] [id number] Type 2 or unspecified type diabetes mellitus; Benign essential hypertension; Pure hypercholesterolemia ; Encounter for long-term (current) use of other medications Social History Tobacco Use Types Packs/Day Years Used Date Smoking Tobacco: Never Assessed Sex and Gender Information Value Date Recorded Sex Assigned at Not on file 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
--- OUTSIDE RECORDS SUMMARY | 2024-03-31 05:05 | XMS_ITS | Encounter Summary ---
Author Organization [facility] Facility Care Team Providers Care Internet Marketing Assistant Name Role Phone Kraig Ching MD Primary Care Provider [phone] Encounter Details Date Type Department Care Team (Late st Contact Info) Description 07/12/2013 - 07/12/2013 11:59 PM CDT Hospital Encounter 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 [facility] ? Department of Laboratories ?[facility] [address] ?[facility] ?CAM 14-A Patient Name: ? DAVID DREW Rec Number: ?? [id number] Date of : ?1940 Gender/Age: ? Male 72 years Doctor: ? Kraig Ching M.D. Report Date/Time: 07/13/2013 09:07 ?* Abnormal ??C Critical ??f Footnote ??^ Corrected ??L Low ??H High ?i Interp Data ??@ Reference Lab ?Chart Type: Cumulative ? CHEMISTRY ? Standard Blood Chemistry ?07/12/2013 ?17:24:45 Test ?Units ?Reference Sodium ?140 ? mmol/L ?? 135-145 Plasma Potassium ?4.2 ? mmol/L ?? 3.3-4.9 Chloride ?101 ? mmol/L ?? 97-110 Total CO2 ? 24 ?mmol/L ?? 22-32 Anion Gap ? 15 ?mmol/L ?? 0-16 BUN ? 30 ??H ? mg/dL ?8-25 Creatinine ?1.19 ?mg/dL ?0.70-1.30 Total Bilirubin ? 0.3 ? mg/dL ?0.3-1.1 Glucose ? 144 ? mg/dL ?70-199 Total Calcium ? 9.9 ? mg/dL ?8.6-10.3 Plasma Total Protein ??7.8 ? g/dL ? 6.5-8.5 Albumin ? 4.7 ? g/dL ? 3.6-5.0 Alkaline Phosphatase ??54 ?Units/L ??38-126 ALT ? 32 ?Units/L ??7-53 AST ? 25 ?Units/L ??11-47 Hemoglobin A1C ?7.8 ??H ?% ?4.0-6.0 Est Average Glucose ?? 177 ??f ?mg/dL 07/12/2013 17:24:45 ??Est Average Glucose: The ADA recommends reporting an estimated Average Glucose (eAG) with all Hemoglobin A1c results using the equation derived from a study of 507 normal and diabetic adults. ??Minority populations were underrepresented and children were not included. ??(Diabetes Care 31:8080-9811, 2008). ??The eAG is not equivalent to a fasting glucose. ?Lipids ? 07/12/2013 ? 17:24:45 Test ? Units ??Reference Total Cholesterol i ?194 ? mg/dL ??0-200 HDL Cholesterol i ?42 ?mg/dL ??40-199 Triglycerides i ?145 ? mg/dL ??0-150 LDL Chol (Calc) i ?123 ? mg/dL ??0-129 non-HDL Cholesterol i ??152 ? mg/dL ? CHEMISTRY ?Lipids 07/12/2013 17:24:45 Total Cholesterol: Interpretive Data Desirable: ?<200 mg/dL Borderline high: ??200-239 mg/dL High: ? >240 mg/dL Literature Reference: National Cholesterol Education Program (NCEP) Expert Panel on Detection, Evaluation, and Treatment of High Blood Cholesterol in Adults (Adult Treatment Panel III). ??Circulation 2004; 110:227. Current interpretive data was last revised on 2005. 07/12/2013 17:24:45 HDL Cholesterol: Interpretive Data Less than 40 mg/dL - low; A major risk factor for heart disease. Greater than or equal to 60 mg/dL - High; ??considered protective of heart disease. Literature Reference: See Cholesterol Current interpretive data was last revised on 2007. 07/12/2013 17:24:45 Triglycerides: Interpretive Data Desirable: ? < 150 mg/dL Borderline High: ? 150 - 199 mg/dL High: ?> 200 mg/dL Literature Reference: See Cholesterol Current interpretive data was last revised on 06. 07/12/2013 17:24:45 LDL Chol (Calc): Interpretive Data Optimal: ? < 100 mg/dL Near Optimal: ?100 - 129 mg/dL Borderline High: ?? 130 - 159 mg/dL High: ?> 160 mg/dL Literature Reference: See Cholesterol Current interpretive data was last revised on 06. 07/12/2013 17:24:45 non-HDL Cholesterol: Interpretive Data When triglycerides are >200 mg/dL, non-HDL C is a secondary target of therapy, with a goal 30 mg/dL higher than the identified LDL-C goal. Reference: ??See Cholesterol Reference. Current interpretive data was last revised 2011. us Historical Provider LAB BLOOD ORDERABLES Casi glynn Result HISTORICAL RESULTS * Serum lipid panel (07/12/2013 5:24 PM CDT) Cholesterol 194 0 - 200 mg/dl HISTORICAL RESULTS Comment: Interpretive Data Desirable: ?<200 mg/dL Borderline high: ??200-239 mg/dL High: ? >240 mg/dL Literature Reference: National Cholesterol Education Program (NCEP) Expert Panel on Detection, Evaluation, and Treatment of High Blood Cholesterol in Adults (Adult Treatment Panel III). ??Circulation 2004; 110:227. Current interpretive data was last revised on 2005. Triglycerides 145 0 - 150 mg/dl HISTORICAL RESULTS Comment: Interpretive Data Desirable: ? < 150 mg/dL Borderline High: ? 150 - 199 mg/dL High: ?> 200 mg/dL Literature Reference: See Cholesterol Current interpretive data was last revised on 06. HDL 42 40 - 199 mg/dl HISTORICAL RESULTS Comment: Interpretive Data Less than 40 mg/dL - low; A major risk factor for heart disease. Greater than or equal to 60 mg/dL - High; ??considered protective of heart disease. Literature Reference: See Cholesterol Current interpretive data was last revised on 2007. LDL 123 0 - 129 mg/dl HISTORICAL RESULTS Comment: Interpretive Data Optimal: ? < 100 mg/dL Near Optimal: ?100 - 129 mg/dL Borderline High: ?? 130 - 159 mg/dL High: ?> 160 mg/dL Literature Reference: See Cholesterol Current interpretive data was last revised on 06. Non-HDL cholesterol, calculated 152 mg/dl HISTORICAL RESULTS Comment: Interpretive Data When triglycerides are >200 mg/dL, non-HDL C is a secondary target of therapy, with a goal 30 mg/dL higher than the identified LDL-C goal. Reference: ??See Cholesterol Reference. Current interpretive data was last revised 2011. Serum 07/12/2013 5:24 PM CDT Kraig Ching MD LAB BLOOD ORDERABLES Final Re sult HISTORICAL RESULTS * (ABNORMAL) Plasma comprehensive metabolic panel (07/12/2013 5:24 PM CDT) Sodium 140 135 - 145 mmol/L HISTORICAL RESULTS K, pl 4.2 3.3 - 4.9 mmol/L HISTORICAL RESULTS Chloride 101 97 - 110 mmol/L HISTORICAL RESULTS CO2 24 22 - 32 mmol/L HISTORICAL RESULTS A. gap 15 0 - 16 mmol/L HISTORICAL RESULTS BUN 30(H) 8 - 25 mg/dl HISTORICAL RESULTS Creatinine 1.19 0.70 - 1.30 mg/dl HISTORICAL RESULTS Calcium 9.9 8.6 - 10.3 mg/dl HISTORICAL RESULTS Protein, pl 7.8 6.5 - 8.5 g/dl HISTORICAL RESULTS Alb 4.7 3.6 - 5.0 g/dl HISTORICAL RESULTS Bilirubin 0.3 0.3 - 1.1 mg/dl HISTORICAL RESULTS Alk phos 54 38 - 126 Units/L HISTORICAL RESULTS AST 25 11 - 47 Units/L HISTORICAL RESULTS ALT 32 7 - 53 Units/L HISTORICAL RESULTS Plasma 07/12/2013 5:24 PM CDT Result [facility] Kraig Ching MD LAB BLOOD ORDERABLES Final Re sult Performing Organization Address [facility] Phone Number HISTORICAL RESULTS * Serum glucose (07/12/2013 5:24 PM CDT) Glucose 144 70 - 199 mg/dl HISTORICAL RESULTS Serum 07/12/2013 5:24 PM CDT Result [facility] Kraig Ching MD LAB BLOOD ORDERABLES Final Re sult Performing Organization Address [facility] Phone Number HISTORICAL RESULTS * (ABNORMAL) Blood hemoglobin A1C (07/12/2013 5:24 PM CDT) Hgb A1C 7.8(H) 4.0 - 6.0 % HISTORICAL RESULTS Estimated average glucose 177 mg/dl HISTORICAL RESULTS Comment: The ADA recommends reporting an estimated Average Glucose (eAG) with all Hemoglobin A1c results using the equation derived from a study of 507 normal and diabetic adults. ??Minority populations were underrepresented and children were not included. ??(Diabetes Care 31:6479-6730, 2008). ??The eAG is not equivalent to a fasting glucose. Blood specimen (specimen) 07/12/2013 5:24 PM CDT Result [facility] Kraig Ching MD LAB BLOOD ORDERABLES Final Re sult Performing Organization Address [facility] de Phone Number HISTORICAL RESULTS documented in this encounter Visit Diagnoses Diagnosis Type 2 or unspecified type diabetes mellitus Other and unspecified hyperlipidemia Encounter for therapeutic drug monitoring documented in this encounter Care Teams Internet Marketing Assistant Relationship Specialty Start Date End Date Kraig Ching MD [address] [facility] [address] [place] [address] PCP - General 01/22/09 07/09/16 documented as of this encounter
--- OUTSIDE RECORDS SUMMARY | 2024-03-31 05:05 | XMS_ITS | Encounter Summary ---
Author Organization [facility] Facility Care Team Providers Care Water Pollution Control Technician Name Role Phone Kraig Ching MD Primary Care Provider [phone] Encounter Details Date Type Department Care Team (Late st Contact Info) Description 06/16/2012 - 06/16/2012 11:59 PM BAND AID MACHINE OPERATOR Hospital Encounter [facility] Kraig Ching MD [address] [address] Other and unspecified hyperlipidemia; Hematuria; Other malaise and fatigue; Special screening for malignant neoplasm of prostate Social History Tobacco Use Types Packs/Day Years Used Date Smoking Tobacco: Never Assessed Sex and Gender Information Value Date Recorded Sex Assigned at Not on file Legal Sex Male 4:46 PM BAND AID MACHINE OPERATOR Gender Identity Not on file [...] Diagnosis Comments DISCHARGE LABORATORY CUMULATIVE REPORT Routine 06/16/2012 5:09 PM BAND AID MACHINE OPERATOR SERUM PROSTATE-SPECIFIC ANTIGEN (PSA) Routine 06/16/2012 11:27 AM BAND AID MACHINE OPERATOR SERUM LIPID PANEL Routine 06/16/2012 11: 27 AM BAND AID MACHINE OPERATOR SERUM GLUCOSE Routine 06/16/2012 11:27 AM BAND AID MACHINE OPERATOR PLASMA COMPREHENSIVE METABOLIC PANEL Routine 06/16/2012 11:27 AM BAND AID MACHINE OPERATOR BLOOD CELL COUNT Routine 06/16/2012 11:2 7 AM BAND AID MACHINE OPERATOR URINALYSIS Routine 06/16/2012 11:27 AM BAND AID MACHINE OPERATOR documented in this encounter Results * Discharge Laboratory Cumulative Report (06/16/2012 5:09 PM BAND AID MACHINE OPERATOR) 06/16/2012 5:09 PM BAND AID MACHINE OPERATOR Narrative HISTORICAL RESULTS - 06/16/2012 5:09 PM BAND AID MACHINE OPERATOR ? [facility] ? Department of Laboratories ?[facility] [address] ?[facility] ?CAM 14-A Patient Name: ? DAVID DREW Med Rec Number: ?? [id number] Date of : ?1940 Gender/Age: ? Male 71 years Doctor: ? Kraig Ching M.D. Report Date/Time: 06/16/2012 17:09 ?* Abnormal ??C Critical ??f Footnote ??^ Corrected ??L Low ??H High ?i Interp Data ??@ Reference Lab ?Chart Type: Cumulative ? CHEMISTRY ? Standard Blood Chemistry ?06/16/2012 ?11:27:00 Test ?Units ?Reference Sodium ?139 ? mmol/L ?? 135-145 Plasma Potassium ?3.9 ? mmol/L ?? 3.3-4.9 Chloride ?101 ? mmol/L ?? 97-110 Total CO2 ? 32 ?mmol/L ?? 22-32 Anion Gap ? 6 ? mmol/L ?? 0-16 BUN ? 21 ?mg/dL ?8-25 Creatinine ?1.11 ?mg/dL ?0.70-1.30 Total Bilirubin ? 0.4 ? mg/dL ?0.3-1.1 Glucose ? 112 ? mg/dL ?65-199 Total Calcium ? 9.5 ? mg/dL ?8.6-10.3 Plasma Total Protein ??7.5 ? g/dL ? 6.5-8.5 Albumin ? 4.8 ? g/dL ? 3.6-5.0 Alkaline Phosphatase ??49 ?Units/L ??38-126 ALT ? 32 ?Units/L ??7-53 AST ? 27 ?Units/L ??11-47 ?Lipids ? 06/16/2012 ? 11:27:00 Test ? Units ??Reference Total Cholesterol i ?154 ? mg/dL ??0-200 HDL Cholesterol i ?45 ?mg/dL ??40-199 Triglycerides i ?81 ?mg/dL ??0-150 LDL Chol (Calc) i ?93 ?mg/dL ??0-129 non-HDL Cholesterol i ??109 ? mg/dL ? CHEMISTRY ?Lipids 06/16/2012 11:27:00 Total Cholesterol: Interpretive Data Desirable: ?<200 mg/dL Borderline high: ??200-239 mg/dL High: ? >240 mg/dL Literature Reference: National Cholesterol Education Program (NCEP) Expert Panel on Detection, Evaluation, and Treatment of High Blood Cholesterol in Adults (Adult Treatment Panel III). ??Circulation 2004; 110:227. Current interpretive data was last revised on 2005. 06/16/2012 11:27:00 HDL Cholesterol: Interpretive Data Less than 40 mg/dL - low; A major risk factor for heart disease. Greater than or equal to 60 mg/dL - High; ??considered protective of heart disease. Literature Reference: See Cholesterol Current interpretive data was last revised on 2007. 06/16/2012 11:27:00 Triglycerides: Interpretive Data Desirable: ? < 150 mg/dL Borderline High: ? 150 - 199 mg/dL High: ?> 200 mg/dL Literature Reference: See Cholesterol Current interpretive data was last revised on 06. 06/16/2012 11:27:00 LDL Chol (Calc): Interpretive Data Optimal: ? < 100 mg/dL Near Optimal: ?100 - 129 mg/dL Borderline High: ?? 130 - 159 mg/dL High: ?> 160 mg/dL Literature Reference: See Cholesterol Current interpretive data was last revised on 06. 06/16/2012 11:27:00 non-HDL Cholesterol: Interpretive Data When triglycerides are >200 mg/dL, non-HDL C is a secondary target of therapy, with a goal 30 mg/dL higher than the identified LDL-C goal. Reference: ??See Cholesterol Reference. Current interpretive data was last revised 2011. ?Other Chemistry ? 06/16/2012 ? 11:27:00 Test ? Units ??Reference Prostate Specific Antigen ??0.2 ? ng/mL ??0.0-4.0 ?URINALYSIS ?06/16/2012 ?11:27:00 Test ?Units ??Reference Color ? Light-Yellow ? [Yellow] Clarity ? Clear ?[Clear] Specific Dorr ??1.004 ?[1.003-1.030] pH ?6.5 ?[5.0-8.0] Albumin ? Negative ? [Trace] Glucose ? Negative ? [Negative] Ketones ? Negative ? [Negative] Bilirubin ? Negative ? [Negative] Blood ? Negative ? [Negative] Urobilinogen ?<2.0 ?mg/dL ??[0.0-2.0] Nitrite ? Negative ? [Negative] Leuk Esterase ? Negative ? [Negative] ?HEMATOLOGY ?Standard Hematology ? 06/16/2012 ? 11:27:00 Test ? Units ?? Reference WBC ?7.5 ? K/cumm ??3.8-9.8 RBC ?4.34 ??L ? M/cumm ??4.50-5.70 Hgb ?12.8 ??L ? g/dL ?13.8-17.2 Hct ?39.0 ??L ? % ? 40.7-50.[address] ??396 ? K/cumm ??140-440 MCV ?89.8 ?fL ?80.0-97.6 MCH ?29.6 ?pg ?26.7-33.7 MCHC ? 32.9 ?g/dL ?32.7-35.5 RDW ?13.5 ?% ? 11.8-14.6 MPV ?8.1 ? fL ?6.8-10.4 Historical Provider LAB BLOOD ORDERABLES Cais l Result Performing Organization Address [facility] de Phone Number HISTORICAL RESULTS * Urinalysis (06/16/2012 11:27 AM BAND AID MACHINE OPERATOR) Color, ur Light-Yellow Yellow HISTORI CHRISTIAN RESULTS Clarity, ur Clear Clear HISTORIC AL RESULTS Specific gravity, ur 1.004 1.003 - 1.030 HISTORICAL RESULTS pH, ur 6.5 5.0 - 8.0 HISTORICAL RESULTS Protein, ur [...] esterase, ur Negative Negative HISTORICAL RESULTS Urine 06/16/2012 11:2 7 AM BAND AID MACHINE OPERATOR Kraig Ching MD LAB BLOOD ORDERABLES Final Re sult Performing Organization Address [facility] de Phone Number HISTORICAL RESULTS * Serum prostate-specific antigen (PSA) (06/16/2012 11:27 AM BAND AID MACHINE OPERATOR) PSA 0.2 0.0 - 4.0 ng/ml HISTORICAL RESULTS Serum 06/16/2012 11:2 7 AM BAND AID MACHINE OPERATOR us Kraig Ching MD LAB BLOOD ORDERABLES Final Re sult HISTORICAL RESULTS * Serum lipid panel (06/16/2012 11:27 AM BAND AID MACHINE OPERATOR) Cholesterol 154 0 - 200 mg/dl HISTORICAL RESULTS Comment: Interpretive Data Desirable: ?<200 mg/dL Borderline high: ??200-239 mg/dL High: ? >240 mg/dL Literature Reference: National Cholesterol Education Program (NCEP) Expert Panel on Detection, Evaluation, and Treatment of High Blood Cholesterol in Adults (Adult Treatment Panel III). ??Circulation 2004; 110:227. Current interpretive data was last revised on 2005. Triglycerides 81 0 - 150 mg/dl HISTORICAL RESULTS Comment: Interpretive Data Desirable: ? < 150 mg/dL Borderline High: ? 150 - 199 mg/dL High: ?> 200 mg/dL Literature Reference: See Cholesterol Current interpretive data was last revised on 06. HDL 45 40 - 199 mg/dl HISTORICAL RESULTS Comment: Interpretive Data Less than 40 mg/dL - low; A major risk factor for heart disease. Greater than or equal to 60 mg/dL - High; ??considered protective of heart disease. Literature Reference: See Cholesterol Current interpretive data was last revised on 2007. LDL 93 0 - 129 mg/dl HISTORICAL RESULTS Comment: Interpretive Data Optimal: ? < 100 mg/dL Near Optimal: ?100 - 129 mg/dL Borderline High: ?? 130 - 159 mg/dL High: ?> 160 mg/dL Literature Reference: See Cholesterol Current interpretive data was last revised on 06. Non-HDL cholesterol, calculated 109 mg/dl HISTORICAL RESULTS Comment: Interpretive Data When triglycerides are >200 mg/dL, non-HDL C is a secondary target of therapy, with a goal 30 mg/dL higher than the identified LDL-C goal. Reference: ??See Cholesterol Reference. Current interpretive data was last revised 2011. Serum 06/16/2012 11:2 7 AM BAND AID MACHINE OPERATOR Kraig Ching MD LAB BLOOD ORDERABLES Final Re sult Performing Organization Address [facility] de Phone Number HISTORICAL RESULTS * Plasma comprehensive metabolic panel (06/16/2012 11:27 AM BAND AID MACHINE OPERATOR) Sodium 139 135 - 145 mmol/L HISTORICAL RESULTS K, pl 3.9 3.3 - 4.9 mmol/L HISTORICAL RESULTS Chloride 101 97 - 110 mmol/L HISTORICAL RESULTS CO2 32 22 - 32 mmol/L HISTORICAL RESULTS A. gap 6 0 - 16 mmol/L HISTORICAL RESULTS BUN 21 8 - 25 mg/dl HISTORICAL RESULTS Creatinine 1.11 0.70 - 1.30 mg/dl HISTORICAL RESULTS Calcium 9.5 8.6 - 10.3 mg/dl HISTORICAL RESULTS Protein, pl 7.5 6.5 - 8.5 g/dl HISTORICAL RESULTS Alb 4.8 3.6 - 5.0 g/dl HISTORICAL RESULTS Bilirubin 0.4 0.3 - 1.1 mg/dl HISTORICAL RESULTS Alk phos 49 38 - 126 Units/L HISTORICAL RESULTS AST 27 11 - 47 Units/L HISTORICAL RESULTS ALT 32 7 - 53 Units/L HISTORICAL RESULTS Plasma 06/16/2012 11:2 7 AM BAND AID MACHINE OPERATOR Kraig Ching MD LAB BLOOD ORDERABLES Final Re sult Performing Organization Address [facility] de Phone Number HISTORICAL RESULTS * Serum glucose (06/16/2012 11:27 AM BAND AID MACHINE OPERATOR) Glucose 112 65 - 199 mg/dl HISTORICAL RESULTS Serum 06/16/2012 11:2 7 AM BAND AID MACHINE OPERATOR Kraig Ching MD LAB BLOOD ORDERABLES Final Re sult Performing Organization Address [facility] de Phone Number HISTORICAL RESULTS * (ABNORMAL) Blood cell count [CBC] express (06/16/2012 11:27 AM BAND AID MACHINE OPERATOR) WBC 7.5 3.8 - 9.8 K/cumm HISTORICAL RESULTS RBC 4.34(L) 4.50 - 5.70 M/cumm HISTORICAL RESULTS Hgb 12.8(L) 13.8 - 17.2 g/dl HISTORICAL RESULTS Hct 39.0(L) 40.7 - 50.3 % HISTORICAL RESULTS MCV 89.8 80.0 - 97.6 fl HISTORICAL RESULTS MCH 29.6 26.7 - 33.7 pg HISTORICAL RESULTS MCHC 32.9 32.7 - 35.5 g/dl HISTORICAL RESULTS Rdw 13.5 11.8 - 14.6 % HISTORICAL RESULTS Platelets 396 140 - 440 K/cumm HISTORICAL RESULTS MPV 8.1 6.8 - 10.4 fl HISTORICAL RESULTS Blood specimen (specimen) 06/16/2012 11:27 AM BAND AID MACHINE OPERATOR Kraig Ching MD LAB BLOOD ORDERABLES Final Re sult HISTORICAL RESULTS documented in this encounter Visit Diagnoses Diagnosis Other and unspecified hyperlipidemia Hematuria Hematuria, unspecified Other malaise and fatigue Special screening for malignant neoplasm of prostate documented in this encounter Care Teams Water Pollution Control Technician Relationship Specialty Start Date End Date Kraig Ching MD [id number] [place] [address] PCP - General 01/22/09 07/09/16 documented as of this encounter
--- OUTSIDE RECORDS SUMMARY | 2024-03-31 05:05 | XMS_ITS | Encounter Summary ---
Author Organization [facility] Facility Care Team Providers Care Sock Folder Name Role Phone Kraig Ching MD Primary Care Provider [phone] Encounter Details Date Type Department Care Team (Latest Contact Info) Description 02/11/2010 - 02/11/2010 11:59 PM CDT Hospital Encounter [facility] Kraig Ching MD [address] [address] Low back pain; Congenital spondylolisthesis Social History Tobacco Use Types Packs/Day Years Used Date Smoking Tobacco: Never Assessed Sex and Gender Information Value Date Recorded Sex Assigned at Not on file Legal Sex 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
--- OUTSIDE RECORDS SUMMARY | 2024-03-31 05:05 | XMS_ITS | Encounter Summary ---
Author Organization [facility] Facility Care Team Providers Care Temperature Logging Operator Name Role Phone Mike Lerner MD Primary Care Provider [phone] Encounter Details Date Type Department Care Team (Late st Contact Info) Description 06/07/2013 - 06/07/2013 11:59 PM CATTLE EXAMINER Hospital Encounter [facility]CON[facility] Mike Lerner MD [address] [address] Pain in joint, shoulder region; Localized osteoarthrosis, shoulder region Social History Tobacco Use Types Packs/Day Years Used Date Smoking Tobacco: Never Assessed Sex and Gender Information Value Date Recorded Sex Assigned at Not on file Legal Sex Male 4:46 PM CATTLE EXAMINER Gender Identity Not on file Sexual [...] Name Priority Date/Time Associated Diagnosis Comments XR SHOULDER 2+ VW Routine 06/07/2013 12: 14 PM CATTLE EXAMINER documented in this encounter Results * XR Shoulder 2+ Vw (06/07/2013 12:14 PM CATTLE EXAMINER) Anatomical Region Laterality Modality Shoulder N/A Radiographic Roberta ging 06/07/2013 12:1 4 PM CATTLE EXAMINER Narrative 06/07/2013 12:27 PM CATTLE EXAMINER KEVIN KO M.D. FINAL REPORT ACC# ??Date Time ??Exam [id number] Jun 07, 2013 12:14:00 [id number] Shoulder minimum 2 views R EXAMINATION: ? Right shoulder minimum 2 views HISTORY: ??shoulder pain FINDINGS: ??Three view examination of the right shoulder is performed. There are no prior studies for comparison. Alignment is normal. The glenohumeral joint is normal. There is mild osteoarthritis of the acromioclavicular joint. There is no fracture or bone abnormality. IMPRESSION: ?? Mild osteoarthritis of the right acromioclavicular joint. Requested By: MIKE LERNER ??M.DNabil Dictated By: ?? KEVIN KO M.D. ??on Jun 07 2013 12:27P This document has been electronically signed by: KEVIN KO M.D. on Jun 07 2013 12:27P Procedure Note Provider, MD Coleen - 08/07/2016 KEVIN KO M.D. FINAL REPORT ACC# Date Time Exam [id number] Jun 07, 2013 12:14:00 [id number] Shoulder minimum 2 views R EXAMINATION: Right shoulder minimum 2 views HISTORY: shoulder pain FINDINGS: Three view examination of the right shoulder is performed. There are no prior studies for comparison. Alignment is normal. The glenohumeral joint is normal. There is mild osteoarthritis of the acromioclavicular joint. There is no fracture or bone abnormality. IMPRESSION: Mild osteoarthritis of the right acromioclavicular joint. Requested By: MIKE LERNER M.D. Dictated By: KEVIN KO M.D. on Jun 07 2013 12:27P This document has been electronically signed by: KEVIN KO M.D. on Jun 07 2013 12:27P Historical Provider MD RAYGOZA XR PROCEDURES Final R esult documented in this encounter Visit Diagnoses Diagnosis Pain in joint, shoulder region Localized osteoarthrosis, shoulder region Localized osteoarthrosis not specified whether primary or secondary, shoulder region documented in this encounter Care Teams Temperature Logging Operator Relationship Specialty Start Date End Date Mike Lerner MD [address] [address] PCP - General 01/22/09 07/09/16 documented as of this encounter
[2024-03-31 07:12] LABS: Hematocrit 32.1 % (42.0-52.0); Hemoglobin 10.2 g/dL (14.0-18.0); Mean Corpuscular HGB Conc 31.8 g/dl (32-36); Mean Corpuscular Hemoglobin 28.2 pg (26-34); Mean Corpuscular Volume 88.7 fl (80-100); Mean Platelet Volume 9.8 fl (7.4-10.4); Platelet Count Result 336 k/mm3 (150-375); Red Blood Count 3.62 M/mm3 (4.6-6.20); Red Cell Distribution Width 13.5 % (11.5-14.5); White Blood Count 9.2 K/mm3 (4.5-10.0)
[2024-03-31 07:20] LABS: Alanine Aminotransferase 13 U/L (6-50); Albumin Level 3.2 g/dL (3.5-5.1); Alkaline Phosphatase 96 U/L (38-126); Anion Gap 3 mmol/L (4-12); Aspartate Amino Transferase 17 U/L (17-59); Bilirubin,Total 0.6 mg/dL (0.2-1.3); Blood Urea Nitrogen 32 mg/dL (9-20); Calcium 8.7 mg/dL (8.4-10.2); Carbon Dioxide 29 mmol/L (22-30); Chloride 106 mmol/L (98-107); Estimated CRCL calculation 26 ml/min; Estimated Glomerular Filt Rate 30; Glucose 61 mg/dL (65-110); Magnesium 1.6 mg/dL (1.6-2.3); Phosphorus 3.1 mg/dL (2.5-4.5); Potassium 3.7 mmol/L (3.4-5.0); Sodium 138 mmol/L (137-145)
[2024-03-31 07:56] LABS: Glucose Point of Care 68 mg/dl (65-105)
[2024-03-31] MEDS: carvediloL 12.5 MG TABLET PO ×2 (08:56→20:06)
[2024-03-31] MEDS: predniSONE 5 MG TABLET PO ×2 (08:56→20:06)
[2024-03-31] MEDS: PANTOPRAZOLE 40 MG TABLET PO (08:57)
[2024-03-31] MEDS: ENOXAPARIN 30 MG/0.3 ML SYRINGE SUB-Q (08:58)
[2024-03-31] MEDS: DORZOLAMIDE/TIMOLOL OPHTH SOL 10 ML BOTTLE 1 DROP EACH EYE ×2 (08:58→20:09)
[2024-03-31] MEDS: polyethylene glycoL 3350 17 GM POWD.PACK PO (08:59)
[2024-03-31] MEDS: MAGNESIUM SULF 2 GM/WATER 50ML 2 GM/50 ML BAG IVPB (09:01)
--- NOTE | 2024-03-31 09:40 | P.PNNP_ITS ---
Progress Note: A&P Assessment and Plan (1) GABRIELA (acute kidney injury): Code(s): N17.9 - Acute kidney failure, unspecified Status: Acute Assessment and Plan: * ongoing improvement noted if not back to baseline * close to baseline on admission * deterioration noted 24 hours later (from 2.4 --> 3.3mg/dl on 03/27/24) * suspect due to several issues: * prerenal factors (nausea/vomiting/diarrhea on admission) * relative hypotension (210 systolic in ER but dropped to 80s) * infection/early sepsis (pyelonephritis) * contrast exposure (CTA of chest on 03/26) * SARAH-I + diuretic use prior to admission * evaluation to date: * renal ultrasound normal * urine eosinophil negative * urine electrolytes prerenal (by FeUrea) * UA not indicative of infection * moderate proteinuria * holding lisinopril and diuretics at this time * follow trend repeat labs and UOP (2) Stage 3b chronic kidney disease: Code(s): N18.32 - Chronic kidney disease, stage 3b Status: Acute Assessment and Plan: * baseline creatinine seems to run ~ 1.9 - 2.3mg/dl since 2021 * this causes him to fluctuate between CKD stage 3B and stage 4 * last outpatient creatinine about in January 2024 was 1.93mg/dl * CKD likely secondary to HTN, diabetes, vascular disease, and age-related change * follows with [facility] (Dr. Lin Guerrero) (3) Pyelonephritis: Code(s): N12 - Tubulo-interstitial nephritis, not specified as acute or chronic Status: Acute Assessment and Plan: * suggestive by admission CT scan * follow culture data - negative to date * on antibiotics * continue supportive therapy (4) Shortness of breath: Code(s): R06.02 - Shortness of breath Status: Acute Assessment and Plan: * etiology? * imaging noted: * CTA chest negative for PE or other acute pathology * CXR negative. * due to reactive airway disease versus known history of COPD * on RA with stable oxygen saturations * follow respiratory status (5) Anemia: Code(s): D64.9 - Anemia, unspecified Status: Acute Assessment and Plan: * presumably related to GABRIELA and acute illness * follow trend of H/H (6) Hypertension: Code(s): I10 - Essential (primary) hypertension Status: Chronic Assessment and Plan: * reasonable control at this time * off SARAH-I and diuretics due to #1 * would not be opposed to restarting in a day or two if renal function continues to improve * follow trend of hemodynamics (7) Type 2 diabetes mellitus: Code(s): E11.9 - Type 2 diabetes mellitus without complications Status: Chronic Assessment and Plan: * follow accu-cheks * glycemic control per hospitalists Will continue to follow Subjective Date/time seen: 03/31/24 09:40 Interval history: Follow-up for acute kidney injury/acute renal failure on chronic kidney disease. Overall, he seems to be doing reasonably well; no apparent distress voiced at the time of my visit; no other acute complaints to report; no other acute issues/events overnight or earlier this morning; he is getting out of bed and walking aorund in his room when he can; renal function/creatinine continues to improve. Exam 2 Narrative: General: elderly but WD/WN male in NAD Heart: normal S1 and S2; no rub Lungs: decreased throughout with a few wheezes noted Abdomen: soft, nontender, nondistended, positive bowel sounds Extremities: no cyanosis or clubbing; no edema Skin: no rash Objective Data Vital Signs Vital Signs: Vital Signs Temp Pulse Resp BP Pulse Ox O2 Del Method O2 Flow Rate 03/31/24 08:56 70 03/31/24 08:00 Room Air 03/31/24 08:00 79 03/31/24 07:42 68 20 03/31/24 07:32 69 20 03/31/24 07:32 95 Nasal Cannula 1 03/31/24 05:27 97.1 F L 73 13 146/66 H 95 03/31/24 04:00 65 03/31/24 02:49 77 20 03/31/24 02:30 79 20 03/31/24 00:00 91 03/30/24 21:32 78 03/30/24 21:13 97.5 F L 83 14 155/89 H 93 03/30/24 20:55 75 20 03/30/24 20:51 95 Room Air 03/30/24 20:47 78 20 03/30/24 20:00 83 03/30/24 20:00 Room Air Intake/Output Intake/Output: Intake & Output 03/28/24 03/29/24 03/30/24 03/31/24 23:59 23:59 23:59 23:59 Intake Total 2480 1096 1398 2200 Output Total 086 952 0145 Balance 2480 396 798 475 Meds/Results Medications: Active Medications Generic Name Dose Route Start Last Admin Trade Name Freq PRN Reason Stop Dose Admin Albuterol/Ipratropium 3 ml 03/27/24 00:03 03/31/24 14:21 Ipratropium 0.5 Mg/Albuterol Sulfate 2.5 Mg Ampul.Neb 3 Ml INHALATION 3 ml Q6HRT PJ Administration Amoxicillin/Clavulanate Potassium 1 tablet 03/31/24 12:00 03/31/24 12:25 Amoxicillin/Clavulanate K 500-125 Mg Tab PO 04/01/24 21:01 1 tablet Q12HR PJ Administration Carvedilol 12.5 mg 03/26/24 09:00 03/31/24 08:56 Carvedilol 12.5 Mg Tablet PO 12.5 mg Q12HR PJ Administration Dorzolamide/Timolol 1 drop 03/26/24 22:25 03/31/24 08:58 Dorzolamide/Timolol Ophth Sarah 10 Ml Bottle EACH EYE 1 drop Q12HR PJ Administration Enoxaparin Sodium 30 mg 03/28/24 09:00 03/31/24 08:58 Enoxaparin 30 Mg/0.3 Ml Syringe SUB-Q 30 mg DAILY PJ Administration Insulin Aspart 7 units 03/27/24 17:00 03/31/24 12:03 Insulin Aspart (*Bkc) 100 Units/Ml SUB-Q Not Given [facility] Insulin Glargine 28 units 03/26/24 22:35 03/30/24 21:32 Insulin Glargine (*Bkc) 100 Units/Ml SUB-Q 28 units QHS [facility] Administration Non-Formulary Medication 1,000 mg 03/27/24 21:00 03/30/24 21:37 Abiraterone PO 04/26/24 20:59 1,000 mg HS [facility] Administration Oxycodone HCl 5 mg 03/26/24 22:22 Oxycodone Hcl (*Crx) 5 Mg Tab Ir PO Q6H PRN pain Pantoprazole Sodium 40 mg 03/27/24 09:00 03/31/24 08:57 Pantoprazole 40 Mg Tablet PO 40 mg DAILY PJ Administration Polyethylene Glycol 17 gm 03/30/24 09:55 03/31/24 08:59 Polyethylene Glycol 3350 17 Gm Powd.Pack PO 17 gm QAM PJ Administration Prednisone 5 mg 03/26/24 22:25 03/31/24 08:56 Prednisone 5 Mg Tablet PO 5 mg Q12HR PJ Administration Radiology Results: ITS Impressions Chest CTA 03/26/24 15:51 IMPRESSION: Motion limited examination. Suboptimal visualization of the bilateral lower lobe segmental and subsegmental arteries as well as subsegmental arteries in the lingula and right middle lobe. As No CT evidence of acute pulmonary embolus in the adequately visualized pulmonary arteries. No acute process detected in the chest. Abdomen/Pelvis CT 03/26/24 17:24 IMPRESSION: Striated appearing nephrograms which can occur with acute pyelonephritis, acute tubular necrosis, and hypotension. No signs of obstruction or medullary sponge kidney. Renal Ultrasound 03/28/24 13:46 IMPRESSION: No definite abnormality seen. Chest X-Ray 03/29/24 17:14 IMPRESSION: 1. Mild pulmonary edema in the lower lungs, right greater left. Labs Labs: Laboratory Tests 03/31/24 06:08 03/31/24 06:08 Calcium 8.7 Phosphorus 3.1 Magnesium 1.6 Total Bilirubin 0.6 AST 17 ALT 13 Alkaline Phosphatase 96 Total Protein 6.0 L Albumin 3.2 L
--- NOTE | 2024-03-31 10:13 | PM.IMPN ---
Progress Note: A&P Assessment and Plan (1) Pyelonephritis: Code(s): N12 - Tubulo-interstitial nephritis, not specified as acute or chronic Status: Acute Assessment and Plan: - patient antibiotic switched from Ceftriaxone 2 gm IVPB daily to Augmentin 500-125 a tablet PO q 12. - Blood culture no growth to date. - Nephrology consulted for GABRIELA on CKD. - Continue to follow cultures. (2) Acute hypoxic respiratory failure: Code(s): J96.01 - Acute respiratory failure with hypoxia Status: Acute Assessment and Plan: - Unclear etiology. - CTA chest negative for PE or other acute. - CXR negative. - Possibly CHF vs other. - Currently on RA with O2 sats > 90 %. - Avoid lasix for now with GABRIELA on CKD. - Apnea study overnight. - Monitor progress. (3) GABRIELA (acute kidney injury): Code(s): N17.9 - Acute kidney failure, unspecified Status: Acute Assessment and Plan: - GABRIELA on CKD. - Possibly related to infection. - Follows up with credit officer outpatient. - Cr levels slightly improved today, 2.10. - holding lisinopril - holding chlorthalidone - Packing Floor Worker following. - Avoid nephrotoxins. - Meds dosing per renal function. (4) Febrile illness: Code(s): R50.9 - Fever, unspecified Status: Acute Assessment and Plan: - likely secondary to 1. - Appears resolved with abx therapy. (5) SIRS (systemic inflammatory response syndrome): Code(s): R65.10 - Systemic inflammatory response syndrome (SIRS) of non-infectious origin without acute organ dysfunction Status: Acute Assessment and Plan: - Likely related to # 1. - Lactic acid wnl. - Continue supportive care with IV abx. (6) T2DM (type 2 diabetes mellitus): Code(s): E11.9 - Type 2 diabetes mellitus without complications Status: Acute Assessment and Plan: - Blood glucose levels improving. - Prandial insulin slightly adjusted. - Continue to adjust insulin as needed. - Continue carb consistent diet (7) Hypomagnesemia: Code(s): E83.42 - Hypomagnesemia Status: Acute Assessment and Plan: -replace as needed -Currently 1.6. -Magnesium sulfate 2 gm ivpb x1 given. Subjective Date/time seen: 03/31/24 10:13 Interval history: Patient reports feeling better. Patient denies shortness of breath, chest pain, palpitations, headache, dizziness, nausea, or vomiting. Nurse reports that patient reported feeling at times when falling asleep that he wakes up needing oxygen and puts oxygen on. Patient reports having a bowel movement today. Patient wanting to start walking hallways. Review of Systems Review of Systems: All systems reviewed & are unremarkable except as noted in HPI and below Exam Const: General: comfortable and no acute distress Eyes: Sclera: sclerae normal Resp: Auscultation: diminished lung sounds Cardio: Rhythm: abnormal rhythm (Afib 79 with mult PVC's) irregularly irregular GI: GI Palp: Yes Soft to palpation Auscultation: normal bowel sounds Skin: General skin exam: no rashes or lesions noted Neuro: Speech: normal speech Extrem: General: no pedal edema Psych: Mental Status: mental status grossly normal Affect: normal affect Objective Data Vital Signs Vital Signs: Vital Signs - 24 hr 03/30/24 13:28 03/30/24 13:35 03/30/24 14:00 Temperature 97.3 F L Pulse Rate 70 68 71 Respiratory Rate 20 20 16 Blood Pressure 156/67 H Pulse Oximetry 95 Oxygen Delivery Oxygen Flow Rate 03/30/24 20:00 03/30/24 20:00 03/30/24 20:47 Temperature Pulse Rate 83 78 Respiratory Rate 20 Blood Pressure Pulse Oximetry Oxygen Delivery Room Air Oxygen Flow Rate 03/30/24 20:51 03/30/24 20:55 03/30/24 21:13 Temperature 97.5 F L Pulse Rate 75 83 Respiratory Rate 20 14 Blood Pressure 155/89 H Pulse Oximetry 95 93 Oxygen Delivery Room Air Oxygen Flow Rate 03/30/24 21:32 03/31/24 00:00 03/31/24 02:30 Temperature Pulse Rate 78 91 79 Respiratory Rate 20 Blood Pressure Pulse Oximetry Oxygen Delivery Oxygen Flow Rate 03/31/24 02:49 03/31/24 04:00 03/31/24 05:27 Temperature 97.1 F L Pulse Rate 77 65 73 Respiratory Rate 20 13 Blood Pressure 146/66 H Pulse Oximetry 95 Oxygen Delivery Oxygen Flow Rate 03/31/24 07:32 03/31/24 07:32 03/31/24 07:42 Temperature Pulse Rate 69 68 Respiratory Rate 20 20 Blood Pressure Pulse Oximetry 95 Oxygen Delivery Nasal Cannula Oxygen Flow Rate 1 03/31/24 08:00 03/31/24 08:00 03/31/24 08:56 Temperature Pulse Rate 79 70 Respiratory Rate Blood Pressure Pulse Oximetry Oxygen Delivery Room Air Oxygen Flow Rate Intake/Output Intake/Output: Intake & Output 03/28/24 03/29/24 03/30/24 03/31/24 23:59 23:59 23:59 23:59 Intake Total 2480 1096 1398 1700 Output Total 641 307 7908 Balance 2480 396 798 -25 Meds/Results Medications: Active Medications Generic Name Dose Route Start Last Admin Trade Name Freq PRN Reason Stop Dose Admin Albuterol/Ipratropium 3 ml 03/27/24 00:03 03/31/24 07:32 Ipratropium 0.5 Mg/Albuterol Sulfate 2.5 Mg Ampul.Neb 3 Ml INHALATION 3 ml Q6HRT PJ Administration Amoxicillin/Clavulanate Potassium 1 tablet 03/31/24 12:00 Amoxicillin/Clavulanate K 500-125 Mg Tab PO 04/01/24 21:01 Q12HR PJ Carvedilol 12.5 mg 03/26/24 09:00 03/31/24 08:56 Carvedilol 12.5 Mg Tablet PO 12.5 mg Q12HR PJ Administration Dorzolamide/Timolol 1 drop 03/26/24 22:25 03/31/24 08:58 Dorzolamide/Timolol Ophth Sarah 10 Ml Bottle EACH EYE 1 drop Q12HR PJ Administration Enoxaparin Sodium 30 mg 03/28/24 09:00 03/31/24 08:58 Enoxaparin 30 Mg/0.3 Ml Syringe SUB-Q 30 mg DAILY PJ Administration Insulin Aspart 7 units 03/27/24 17:00 03/30/24 17:11 Insulin Aspart (*Bkc) 100 Units/Ml SUB-Q 7 units TIDWM PJ Administration Insulin Glargine 28 units 03/26/24 22:35 03/30/24 21:32 Insulin Glargine (*Bkc) 100 Units/Ml SUB-Q 28 units QHS PJ Administration Miscellaneous Information 1 each 03/26/24 00:01 (Fluoride (Sodium) [Prevident 5000 Plus] 1.1 % Cream) Is Nonformulary, Can Patient Bring F XX 04/25/24 00:00 CLARIFY PJ Non-Formulary Medication 1,000 mg 03/27/24 21:00 03/30/24 21:37 Abiraterone PO 04/26/24 20:59 1,000 mg HS PJ Administration Non-Formulary Medication 1 applic 03/26/24 22:30 Fluoride (Sodium) [Prevident 5000 Plus] DENTAL 04/25/24 22:29 Q24H PJ Oxycodone HCl 5 mg 03/26/24 22:22 Oxycodone Hcl (*Crx) 5 Mg Tab Ir PO Q6H PRN pain Pantoprazole Sodium 40 mg 03/27/24 09:00 03/31/24 08:57 Pantoprazole 40 Mg Tablet PO 40 mg DAILY PJ Administration Polyethylene Glycol 17 gm 03/30/24 09:55 03/31/24 08:59 Polyethylene Glycol 3350 17 Gm Powd.Pack PO 17 gm QAM PJ Administration Prednisone 5 mg 03/26/24 22:25 03/31/24 08:56 Prednisone 5 Mg Tablet PO 5 mg Q12HR PJ Administration Radiology Results: ITS Impressions Chest CTA 03/26/24 15:51 IMPRESSION: Motion limited examination. Suboptimal visualization of the bilateral lower lobe segmental and subsegmental arteries as well as subsegmental arteries in the lingula and right middle lobe. As No CT evidence of acute pulmonary embolus in the adequately visualized pulmonary arteries. No acute process detected in the chest. Abdomen/Pelvis CT 03/26/24 17:24 IMPRESSION: Striated appearing nephrograms which can occur with acute pyelonephritis, acute tubular necrosis, and hypotension. No signs of obstruction or medullary sponge kidney. Renal Ultrasound 03/28/24 13:46 IMPRESSION: No definite abnormality seen. Chest X-Ray 03/29/24 17:14 IMPRESSION: 1. Mild pulmonary edema in the lower lungs, right greater left. Labs Labs: Laboratory Results - last 24 hr 03/30/24 03/30/24 03/30/24 11:49 17:03 19:55 WBC RBC Hgb Hct MCV MCH MCHC RDW Plt Count MPV Sodium Potassium Chloride Carbon Dioxide Anion Gap BUN Creatinine Estim Creat Clear Calc Estimated GFR Glucose POC Capillary Glucose 162 H 201 H 199 H Calcium Phosphorus Magnesium Total Bilirubin AST ALT Alkaline Phosphatase Total Protein Albumin 03/31/24 03/31/24 03/31/24 02:33 06:08 07:46 WBC 9.2 RBC 3.62 L Hgb 10.2 L Hct 32.1 L MCV 88.7 MCH 28.2 MCHC 31.8 L RDW 13.5 Plt Count 336 MPV 9.8 Sodium 138 Potassium 3.7 Chloride 106 Carbon Dioxide 29 Anion Gap 3 L BUN 32 H Creatinine 2.10 H Estim Creat Clear Calc 26 Estimated GFR 30 L Glucose 61 L POC Capillary Glucose 84 68 Calcium 8.7 Phosphorus 3.1 Magnesium 1.6 Total Bilirubin 0.6 AST 17 ALT 13 Alkaline Phosphatase 96 Total Protein 6.0 L Albumin 3.2 L Quality VTE Prophylaxis VTE prophylaxis: pharmacologic ordered
--- OUTSIDE RECORDS SUMMARY | 2024-03-31 11:23 | XMS_ITS ---
Author Organization [facility] Address [address] [place] [address] Care Team Providers Care Negative Spotter Name Role Phone Kraig Ching MD Primary Care Provider [phone] Gautam Cope MD Unavailable Tramaine Roe MD Unavailable [phone] Sukhwinder Uribe MD Unavailable [phone] Shay Guillermo MD Unavailable [phone] Marsha Landis RN Unavailable Unavailab le Active [...] 3:08 PM CDT): Reviewed low sodium diet. GABRIEAL (acute kidney injury) 08/19/2023 Assessment & Plan [...] mg. Assessment & Plan (03/08/2023 7:11 AM NEGATIVE SPOTTER): Hypertension is controlled. Continue current regimen. 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 Avoid NSAIDS. Assessment & Plan (10/05/2023 5:50 AM CDT): Continue current regimen.Limit nephrotoxins.Reviewed creatinine. Avoid NSAIDS. Assessment & Plan (03/08/2023 7:12 AM NEGATIVE SPOTTER): Continue current regimen.Limit nephrotoxins.Reviewed creatinine. Avoid NSAIDS. CKD (chronic kidney disease) 03/08/2022 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 chronic kidney disease 2021 Gastroesophageal reflux disease 04/08/2021 Assessment & Plan (03/08/2023 11:17 AM NEGATIVE SPOTTER): Reviewed dietary modifications. Continue PPI. Assessment & Plan (08/18/2022 6:36 AM CDT): Reviewed dietary modifications. Continue PPI. Assessment & Plan (02/12/2022 6:03 AM CDT): Reviewed dietary modifications. Continue PPI. Assessment & Plan (04/08/2021 5:55 AM NEGATIVE SPOTTER): Reviewed dietary modifications. Continue PPI. 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 Continue home PT exercises. Advised using a walker. Assessment & Plan (08/18/2022 11:47 AM CDT): Continue oxycodone. Continue home PT exercises. Advised using a walker. Assessment & Plan (02/12/2022 11:41 AM CDT): Continue oxycodone. Continue home PT exercises. A prescription for a walker. Assessment & Plan (04/08/2021 5:55 AM NEGATIVE SPOTTER): Continue oxycodone. Continue home PT exercises. Continue [...] 01/25/2018 Assessment & Plan (03/07/2018 6:54 AM NEGATIVE SPOTTER): Hypertension is controlled. Continue current regimen. CHF [...] creatinine. Assessment & Plan (04/08/2021 5:54 AM NEGATIVE SPOTTER): Hypertension is controlled. Continue current regimen.Limit nephrotoxins. [...] NSAIDS. Assessment & Plan (03/07/2018 6:55 AM NEGATIVE SPOTTER): Hypertension is controlled. Continue current regimen. Limit nephrotoxins. Monitor creatinine. Avoid NSAIDS. Assessment & Plan (11/25/2017 7:09 AM CDT): Limit nephrotoxins. Monitor creatinine. Avoid NSAIDS. Duodenal ulcer 11/25/2017 Assessment & Plan (11/25/2017 10:16 AM CDT): Reviewed GI note . Continue pantoprazole. Avoid NSAIDS. Refer for EGD. PAF (paroxysmal atrial fibrillation) ([facility]/HCC) 0 10/22/2017 Assessment & Plan (03/07/2018 6:54 AM NEGATIVE SPOTTER): Continue rate control. Continue anticoagualtion. Anticipate starting [...] NSAIDS. Assessment & Plan (03/07/2018 6:55 AM NEGATIVE SPOTTER): Limit nephrotoxins. Monitor creatinine. Avoid NSAIDS. Assessment & Plan (11/25/2017 7:07 AM CDT): Limit nephrotoxins. Monitor creatinine. Avoid NSAIDS. Allergy to statin medication 08/30/2017 Tobacco use 08/30/2017 Assessment & Plan (08/30/2017 9:05 AM CDT): Advised cessation. Hyperlipidemia associated with type 2 diabetes oj ann dorado 01/15/2017 Assessment & Plan (08/18/2023 9:14 AM CDT): .Continue Insulin.Reviewed proper diet.Continue pravastatin. Assessment & Plan (08/18/2022 11:54 AM CDT): HgbA1C improved to 7.9. Continue Insulin.Reviewed proper diet. Assessment & Plan (04/08/2021 10:17 AM NEGATIVE SPOTTER): Reviewed HgBA1C elevated at 10.6 on 04/01/21. [...] therapy. Assessment & Plan (03/07/2018 6:57 AM NEGATIVE SPOTTER): Continue pravastatin. He had myalgias on other [...] diet. Assessment & Plan (03/02/2017 6:53 AM NEGATIVE SPOTTER): Hypertension is controlled. Continue current regimen. Reviewed [...] Day Cycles* Plan Start Date:10/28/2018 Plan Provider:Gautam Coep MD Linked Problems Prostate cancer (HCC) Treatment [...] treatments are documented for this patient in [facility]. Treatments may have been administered in [...] 05/28/2023 Assessment & Plan (03/08/2023 11:40 AM NEGATIVE SPOTTER): Agree with cataract surgery. He has 1st [...] 08/30/2017 Assessment & Plan (03/02/2017 10:48 AM NEGATIVE SPOTTER): Mood is improved. Monitor off medication. 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 Assessment & Plan (03/07/2018 6:56 AM NEGATIVE SPOTTER): Continue current regimen. Advised annual eye exam.Limit nephrotoxins. Monitor creatinine. Avoid NSAIDS. Assessment & Plan (11/25/2017 10:16 AM CDT): Continue current regimen and add Januvia.Advised annual eye exam. Limit nephrotoxins. Monitor creatinine. Avoid NSAIDS. Assessment & Plan (01/15/2017 6:44 AM CDT): Continue current regimen. Advised annual eye exam. Reviewed proper diet. Continue statin therapy.
--- OUTSIDE RECORDS SUMMARY | 2024-03-31 11:23 | XMS_ITS | Clinical Summary ---
Author Organization [facility] Address [facility]. [place], [place] [address] [place] [id number] Care Team Providers Care Music Teacher Name Role Phone Unavailable Primary Care Provider [...]
--- OUTSIDE RECORDS SUMMARY | 2024-03-31 11:23 | XMS_ITS | Encounter Summary ---
Author Organization [facility] Address [facility] [facility]. [place], [place] [address] [place] [id number] Care Team Providers Care Account Executive [employer] Name Role Phone Unavailable Primary Care Provider Unavailabl e Encounter Details Date Type Department Care Team (Late st Contact Info) Description 07/06/1998 Abstract [place] [address] , Generic Conversion, Social History Tobacco Use [...]
--- OUTSIDE RECORDS SUMMARY | 2024-03-31 11:23 | XMS_ITS | Referral Summary ---
Author Organization [facility] Address [address] [place] [address] Care Team Providers Care Insurance Sales Representative Name Role Phone Kraig Ching MD Primary Care Provider [phone] Gautam Cope MD Unavailable Tramaine Roe MD Unavailable [phone] Sukhwinder Uribe MD Unavailable Shay Guillermo MD Unavailable Marsha Landis RN Unavailable Unavailab le Encounters Date Type Department Care Team Description 03/13/2024 Orders Only [facility] Oncology [facility] [facility] Floor [address] [place] [address] Gautam Cope MD 01/27/2024 11:00 AM CDT Office Visit [facility] Ophthalmology [address] [facility] 2nd Floor [address] [place] [address] Higinio Connolly MD Primary open angle glaucoma (POAG) of left eye, moderate stage (Primary Dx); Ocular hypertension of right eye 01/11/2024 12:45 PM CDT Infusion [facility] - Infusion [address] [facility] [address] [place] [address] Prostate cancer (HCC) (Primary Dx) 01/11/2024 11:45 AM CDT Office Visit [facility] Oncology [address] [facility] Floor [address] [place] [address] Gautam Cope MD Prostate cancer (HCC) (Primary Dx) 01/11/2024 11:00 AM CDT Lab [facility] - Lab Collection [address] [facility] Floor [address] [place] [address] Prostate cancer (HCC) 01/10/2024 12:00 PM CDT Office Visit [facility] [address] [facility] [address] [place] [address] Kraig Chnig MD Primary hypertension (Primary Dx); Type 2 diabetes mellitus with stage 3a chronic kidney disease, with long-term current use of insulin (HCC); Prostate cancer (HCC); Fatigue, unspecified type 01/07/2024 Telephone [facility] Oncology [address] [facility] 7th [place] [address] [place] [address] Ladi Bunch RN Appointments>01/11/24 >ACB [...] mg. Assessment & Plan (03/08/2023 7:11 AM FACILITY ENGINEER): Hypertension is controlled. Continue current regimen. 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 Avoid NSAIDS. Assessment & Plan (10/05/2023 5:50 AM CDT): Continue current regimen.Limit nephrotoxins.Reviewed creatinine. Avoid NSAIDS. Assessment & Plan (03/08/2023 7:12 AM FACILITY ENGINEER): Continue current regimen.Limit nephrotoxins.Reviewed creatinine. Avoid NSAIDS. CKD (chronic kidney disease) 03/08/2022 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 chronic kidney disease 2021 Gastroesophageal reflux disease 04/08/2021 Assessment & Plan (03/08/2023 11:17 AM FACILITY ENGINEER): Reviewed dietary modifications. Continue PPI. Assessment & Plan (08/18/2022 6:36 AM CDT): Reviewed dietary modifications. Continue PPI. Assessment & Plan (02/12/2022 6:03 AM CDT): Reviewed dietary modifications. Continue PPI. Assessment & Plan (04/08/2021 5:55 AM FACILITY ENGINEER): Reviewed dietary modifications. Continue PPI. 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 Continue home PT exercises. Advised using a walker. Assessment & Plan (08/18/2022 11:47 AM CDT): Continue oxycodone. Continue home PT exercises. Advised using a walker. Assessment & Plan (02/12/2022 11:41 AM CDT): Continue oxycodone. Continue home PT exercises. A prescription for a walker. Assessment & Plan (04/08/2021 5:55 AM FACILITY ENGINEER): Continue oxycodone. Continue home PT exercises. Continue [...] 01/25/2018 Assessment & Plan (03/07/2018 6:54 AM FACILITY ENGINEER): Hypertension is controlled. Continue current regimen. CHF [...] creatinine. Assessment & Plan (04/08/2021 5:54 AM FACILITY ENGINEER): Hypertension is controlled. Continue current regimen.Limit nephrotoxins. [...] NSAIDS. Assessment & Plan (03/07/2018 6:55 AM FACILITY ENGINEER): Hypertension is controlled. Continue current regimen. Limit nephrotoxins. Monitor creatinine. Avoid NSAIDS. Assessment & Plan (11/25/2017 7:09 AM CDT): Limit nephrotoxins. Monitor creatinine. Avoid NSAIDS. Duodenal ulcer 11/25/2017 Assessment & Plan (11/25/2017 10:16 AM CDT): Reviewed GI note . Continue pantoprazole. Avoid NSAIDS. Refer for EGD. PAF (paroxysmal atrial fibrillation) ([facility]/HCC) 0 10/22/2017 Assessment & Plan (03/07/2018 6:54 AM FACILITY ENGINEER): Continue rate control. Continue anticoagualtion. Anticipate starting [...] NSAIDS. Assessment & Plan (03/07/2018 6:55 AM FACILITY ENGINEER): Limit nephrotoxins. Monitor creatinine. Avoid NSAIDS. Assessment [...] diet. Assessment & Plan (04/08/2021 10:17 AM FACILITY ENGINEER): Reviewed HgBA1C elevated at 10.6 on 04/01/21. [...] therapy. Assessment & Plan (03/07/2018 6:57 AM FACILITY ENGINEER): Continue pravastatin. He had myalgias on other [...] diet. Assessment & Plan (03/02/2017 6:53 AM FACILITY ENGINEER): Hypertension is controlled. Continue current regimen. Reviewed [...] 05/28/2023 Assessment & Plan (03/08/2023 11:40 AM FACILITY ENGINEER): Agree with cataract surgery. He has 1st [...] 08/30/2017 Assessment & Plan (03/02/2017 10:48 AM FACILITY ENGINEER): Mood is improved. Monitor off medication. 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) 01/12/2012 10/02/2023 Overview (07/23/2017): Description: YEAR OF [...] 200. Assessment & Plan (03/07/2018 6:56 AM FACILITY ENGINEER): Continue current regimen. Advised annual eye exam.Limit [...] 01/17/2019 Influenza, Unspecified 01/17/2019(Deferred: Daisy ent Refused) [employer]) SARS-CoV-2 Vaccination 06/14/2020, 06/14/2020 Pfizer SARS-CoV-2 [...] on file Legal Sex Male 4:46 PM FACILITY ENGINEER Gender Identity Not on file Sexual [...] monitor diabetes and kidney status, etc. [facility] Chronic Pain Care Plan Chronic Care Management No change(03/23 1:47 PM FACILITY ENGINEER) No Ingrid Oden, SHEA Note: Problem: Chronic Pain Goals: 1. Minimize further functional decline 2. Maximize quality of life 3. Control pain Strategies: - Activity/exercise program recommendation - Conservative stepwise pain medicine strategy with multi-disciplinary approach - Recommend healthy lifestyle strategies and compensatory methods as needed Medical Devices Implanted Type Area Dog Day Care Attendant Device Identifier Shelf Expiration Date Model / Serial / Lot [employer] Lens Iol Cna0t0.195 [facility] Autonom Cna0t0.195 - [id number] - [id number] Implanted:Qty: 1 on 06/09/2023 by Higinio Connolly MD at [facility] Lens Right: Eye [employer] [id number] 10/27/2025 CNA0T0.19 5 / [id number] / [employer] Lens Iol Cna0t0.200 [facility] Autonom Cna0t0.200 - [id number] - [id number] Implanted:Qty: 1 on 05/19/2023 by Higinio Connolly MD at [facility] Left: Eye [employer] [id number] 10/06/2025 CNA0T0.20 0 / [id number] / Procedures Procedure Name Priority Date/Time [...] (HCC) LIPID PANEL Routine 03/08/2023 11:55 AM FACILITY ENGINEER Hyperlipidemia, unspecified hyperlipidemia type ALBUMIN CREATININE RATIO, [...] MD LAB BLOOD ORDERABLES [facility] Department [place] [address] * (ABNORMAL) Differential, auto (01/11/2024 11:10 AM CDT) Neutrophil abs 11.8(H) 1.5 - 6.5 K/cumm Comment:Testing performed by : [facility], [address] [place], [place] [phone] Lymphocyte abs 1.1 0.8 - 3.3 K/cumm [facility] Comment:Testing performed by : [facility], [address] [place] [address] Monocyte abs 0.8 0.2 - 0.8 K/cumm [facility] Comment:Testing performed by : [facility], [address] [place] [address] Eosinophil abs 0.1 0.0 - 0.5 K/cumm [facility] Comment:Testing performed by : [facility], [address] [place], [place] [phone] Basophil abs 0.1 0.0 - 0.1 K/cumm [facility] Comment:Testing performed by : [facility], [address] [place] [phone] Neutrophil pct 84.3 % [facility] Comment: Interpretive Data Percent cell count reference ranges are not reported, since discordance with absolute values may lead to misinterpretation of CBC data. Current Interpretive Data was last revised on 2017. Testing performed by: [facility], [address] [place] [phone] Lymphocyte pct 8.2 % [facility] Comment: Interpretive Data Percent cell count reference ranges are not reported, since discordance with absolute values may lead to misinterpretation of CBC data. Current Interpretive Data was last revised on 2017. Testing performed by: [facility], [address] [place] [phone] Monocyte pct 6.1 % [facility] Comment: Interpretive Data Percent cell count reference ranges are not reported, since discordance with absolute values may lead to misinterpretation of CBC data. Current Interpretive Data was last revised on 2017. Testing performed by: [facility], [address] [place] [phone] Eosinophil pct 0.6 % [facility] Comment: Interpretive Data Percent cell count reference ranges are not reported, since discordance with absolute values may lead to misinterpretation of CBC data. Current Interpretive Data was last revised on 2017. Testing performed by: [facility], [address] [place] [phone] Basophil pct 0.8 % [facility] Comment: Interpretive Data Percent cell count reference ranges are not reported, since discordance with absolute values may lead to misinterpretation of CBC data. Current Interpretive Data was last revised on 2017. Testing performed by: [facility], [address] [place] [phone] Blood 01/11/2024 11:1 0 AM CDT 01/11/2024 11:13 AM CDT us Gautam Cope MD LAB BLOOD ORDERABLES Final Resul t [facility] Department [place] [address] * (ABNORMAL) CBC with auto differential (01/11/2024 11:10 AM CDT) WBC 14.0(H) 3.8 - 9.9 K/cumm Comment:Testing performed by : [facility], [address] [place] [phone] Hgb 12.9(L) 13.0 - 17.5 g/dL [facility] Comment:Testing performed by : [facility], [address] [place] [address] Hct 40.7 38.9 - 50.3 % [facility] Comment:Testing performed by : [facility], [address] [place] [address] Plt 381 150 - 400 K/cumm [facility] Comment:Testing performed by : [facility], [address] [place] [address] MPV 7.6 6.8 - 10.4 fL [facility] Comment:Testing performed by : [facility], [address] [place] [address] RBC 4.67 4.30 - 5.80 M/cumm [facility] Comment:Testing performed by : [facility], [address] [place] [address] MCV 87.2 81.3 - 96.4 fL [facility] Comment:Testing performed by : [facility], [address] [place] [address] MCH 27.7 27.1 - 33.3 pg [facility] Comment:Testing performed by : [facility], [address] [place] [address] MCHC 31.8(L) 32.3 - 35.7 g/dL [facility] Comment:Testing performed by : [facility], [address] [place] [address] RDW CV 15.0(H) 11.1 - 14.9 % [facility] Comment:Testing performed by : [facility], [address] [place] [address] NRBC abs 0.00 0.00 - 0.01 K/cumm [facility] Comment:Testing performed by : [facility], [address] [place] [address] Blood 01/11/2024 11:1 0 AM CDT 01/11/2024 11:13 AM CDT us Gautam Cope MD LAB BLOOD ORDERABLES Final Resul t [facility] [place] [address] * PSA diagnostic (01/11/2024 11:10 AM CDT) PSA-Total <0.02 <=6.20 ng/mL Comment: Interpretive Data ?AGE ? SEX ?REFERENCE INTERVAL 0 minutes-150 years ?Female ?None 0 minutes-49 years ? Male ?None ? 50-59 years ? Male ?0-3.90 ? 60-69 years ? Male ?0-5.40 ? 70-79 years ? Male ?0-6.20 ? 80-150 years ?Male ?0-6.20 The [employer] PSA Total assay procedure was used. Results from different manufacturers or methods may not be comparable. Serial testing should be performed using the same method. Current interpretive data last revised 21. Blood 01/11/2024 11:1 0 AM CDT 01/11/2024 11:21 AM CDT Gautam Cope MD LAB BLOOD ORDERABLES Final Resul t Performing Organization Address [facility] de Phone Number [facility] [place] [address] * Lactate dehydrogenase (LD) (01/11/2024 11:10 AM CDT) Lactate dehydrogenase (LDH) 191 100 - 250 Units/L Blood 01/11/2024 11:1 0 AM CDT 01/11/2024 11:21 AM CDT Gautam Cope MD LAB BLOOD ORDERABLES Final Resul t Performing Organization Address [facility] de Phone Number [facility] Department [place] [address] * (ABNORMAL) Comprehensive metabolic panel (01/11/2024 11:10 AM CDT) Sodium 141 135 - 145 mmol/L Potassium, pl 4.7 3.3 - 4.9 mmol/L [facility] Chloride 103 97 - 110 mmol/L [facility] CO2 31 22 - 32 mmol/L [facility] Anion gap 7 2 - 15 mmol/L [facility] BUN 39(H) 6 - 25 mg/dL [facility] Creatinine 1.93(H) 0.80 - 1.30 mg/dL [facility] Glucose 152 70 - 199 mg/dL [facility] Comment: [...] Calcium 9.1 8.5 - 10.3 mg/dL [facility] Bilirubin, total 0.5 0.1 - 1.2 mg/dL [facility] Protein, pl 6.7 6.5 - 8.5 g/dL [facility] Albumin 3.6 3.5 - 5.0 g/dL [facility] Alk phos 140(H) 40 - 130 Units/L [facility] ALT 9 7 - 55 Units/L [facility] AST 14 10 - 50 Units/L [facility] Blood 01/11/2024 11:1 0 AM CDT 01/11/2024 11:21 AM CDT us Gautam Cope MD LAB BLOOD ORDERABLES Final Resul t [facility] Department [place] [address] * (ABNORMAL) Hemoglobin A1c (10/19/2023 11:05 AM CDT) Pathologist [facility] Hgb A1C 8.0(H) 4.0 - 5.6 % Estimated Average Glucose 183 mg/dL [facility] Comment: The ADA recommends reporting [...] Final Resul t [facility] [place] [address] * (ABNORMAL) Lipid panel (03/08/2023 11:55 AM FACILITY ENGINEER) [facility] Cholesterol 193 30 - 199 mg/dL [facility] Comment: Interpretive Data Ages < or [...] on 2017. Triglycerides 250(H) <=149 mg/dL [facility] Comment: [...] revised on 2017. HDL 36(L) >=40 mg/dL [facility] Comment: Interpretive Data Ages < or = [...] on 2017. LDL, calculated 107 <=129 mg/dL [facility] Comment: Interpretive Data Ages < or [...] revised on 2017. Non-HDL Cholesterol 157 mg/dL [facility] Comment: Interpretive Data Ages < or = [...] last revised on 2017. Chol/HDL ratio 5 [facility] Blood 03/08/2023 11:5 5 AM FACILITY ENGINEER 03/08/2023 3:48 PM FACILITY ENGINEER us Kraig Ching MD LAB BLOOD ORDERABLES Final Re sult [facility] Department [place] [address] * (ABNORMAL) Albumin Creatinine Ratio, Urine (01/01/2023 10:40 AM CDT) Albumin Ur 227.3 mg/L [facility] Comment: Interpretive Data No reference range established. Current interpretive data was last revised 2018. Creatinine Ur 66.5 mg/dL [facility] Comment: Interpretive Data No reference range established. Current interpretive data was last revised 2018. Albumin Creatinine Ratio, Ur 342(H) 1 - 29 mg/g [facility] Urine 01/01/2023 10:4 0 AM CDT 01/01/2023 10:45 AM CDT Kraig Ching MD LAB URINE ORDERABLES Final Re sult [facility] [place] [address] * DIABETES EYE EXAM (06/29/2018) Diabetic Eye Exam Normal Historical Provider HEALTH MAINTENANCE Final Result from Last 3 Months or Most Recently Relevant to Health Maintenance Insurance [employer] MEDICARE [employer] MEDICARE T MEDICARE T MEDICARE Advance Directives For more information, please contact: [phone] * Full Code (Latest Code Status on File) Date Activated Date Inactivated Comments 12/16/2017 2:44 PM 12/16/2017 7:18 PM Care Teams Insurance Sales Representative Relationship Specialty Start Date End Date Kraig Ching MD [address] [address] PCP - General 07/10/16 Gautam Cope MD [address] [facility] [address] [place] [address] Medical Oncologist/Experimental Machining Lab Manager Medical Oncology 08/18/18 Tramaine Roe MD [address] [facility] [address] [place] [address] Referring Physician Urology 08/18/18 Sukhwinder Uribe MD [address] [facility] [address] [place] [address] Consulting Physician Urology 08/18/18 Shay Guillermo MD [address] [facility] [address] [place] [address] Referring Physician Urology 08/18/18 Marsha Landis, RN Registered Nurse 11/17/18
--- OUTSIDE RECORDS SUMMARY | 2024-03-31 11:23 | XMS_ITS | Clinical Summary ---
Author Organization [facility] Address [address] [place] [address] Care Team Providers Care Electrolysist Name Role Phone Kraig Ching MD Primary Care Provider [phone] Gautam Cope MD Unavailable Tramaine Roe MD Unavailable [phone] Sukhwinder Uribe MD Unavailable [phone] Shay Guillermo MD Unavailable [phone] Marsha Landis RN Unavailable Unavailab le Allergies [...] mg. Assessment & Plan (03/08/2023 7:11 AM BUSINESS LEADER): Hypertension is controlled. Continue current regimen. 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 Avoid NSAIDS. Assessment & Plan (10/05/2023 5:50 AM CDT): Continue current regimen.Limit nephrotoxins.Reviewed creatinine. Avoid NSAIDS. Assessment & Plan (03/08/2023 7:12 AM BUSINESS LEADER): Continue current regimen.Limit nephrotoxins.Reviewed creatinine. Avoid NSAIDS. CKD (chronic kidney disease) 03/08/2022 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 chronic kidney disease 2021 Gastroesophageal reflux disease 04/08/2021 Assessment & Plan (03/08/2023 11:17 AM BUSINESS LEADER): Reviewed dietary modifications. Continue PPI. Assessment & Plan (08/18/2022 6:36 AM CDT): Reviewed dietary modifications. Continue PPI. Assessment & Plan (02/12/2022 6:03 AM CDT): Reviewed dietary modifications. Continue PPI. Assessment & Plan (04/08/2021 5:55 AM BUSINESS LEADER): Reviewed dietary modifications. Continue PPI. 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 Continue home PT exercises. Advised using a walker. Assessment & Plan (08/18/2022 11:47 AM CDT): Continue oxycodone. Continue home PT exercises. Advised using a walker. Assessment & Plan (02/12/2022 11:41 AM CDT): Continue oxycodone. Continue home PT exercises. A prescription for a walker. Assessment & Plan (04/08/2021 5:55 AM BUSINESS LEADER): Continue oxycodone. Continue home PT exercises. Continue [...] 01/25/2018 Assessment & Plan (03/07/2018 6:54 AM BUSINESS LEADER): Hypertension is controlled. Continue current regimen. CHF [...] creatinine. Assessment & Plan (04/08/2021 5:54 AM BUSINESS LEADER): Hypertension is controlled. Continue current regimen.Limit nephrotoxins. [...] NSAIDS. Assessment & Plan (03/07/2018 6:55 AM BUSINESS LEADER): Hypertension is controlled. Continue current regimen. Limit nephrotoxins. Monitor creatinine. Avoid NSAIDS. Assessment & Plan (11/25/2017 7:09 AM CDT): Limit nephrotoxins. Monitor creatinine. Avoid NSAIDS. Duodenal ulcer 11/25/2017 Assessment & Plan (11/25/2017 10:16 AM CDT): Reviewed GI note . Continue pantoprazole. Avoid NSAIDS. Refer for EGD. PAF (paroxysmal atrial fibrillation) ([facility]/HCC) 0 10/22/2017 Assessment & Plan (03/07/2018 6:54 AM BUSINESS LEADER): Continue rate control. Continue anticoagualtion. Anticipate starting [...] NSAIDS. Assessment & Plan (03/07/2018 6:55 AM BUSINESS LEADER): Limit nephrotoxins. Monitor creatinine. Avoid NSAIDS. Assessment [...] diet. Assessment & Plan (04/08/2021 10:17 AM BUSINESS LEADER): Reviewed HgBA1C elevated at 10.6 on 04/01/21. [...] therapy. Assessment & Plan (03/07/2018 6:57 AM BUSINESS LEADER): Continue pravastatin. He had myalgias on other [...] diet. Assessment & Plan (03/02/2017 6:53 AM BUSINESS LEADER): Hypertension is controlled. Continue current regimen. Reviewed [...] 05/28/2023 Assessment & Plan (03/08/2023 11:40 AM BUSINESS LEADER): Agree with cataract surgery. He has 1st [...] 08/30/2017 Assessment & Plan (03/02/2017 10:48 AM BUSINESS LEADER): Mood is improved. Monitor off medication. 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 Assessment & Plan (03/07/2018 6:56 AM BUSINESS LEADER): Continue current regimen. Advised annual eye exam.Limit [...] Department Care Team Description 03/13/2024 Orders Only [facility] Oncology [address] [facility] [address] [place] [address] Gautam Cope MD 01/27/2024 11:00 AM CDT Office Visit [facility] Ophthalmology [address] [facility] 2nd Floor [address] [place] [address] Higinio Connolly MD Primary open angle glaucoma (POAG) of left eye, moderate stage (Primary Dx); Ocular hypertension of right eye 01/11/2024 12:45 PM CDT Infusion [facility] - Infusion [address] [facility] [address] [place] [address] Prostate cancer (HCC) (Primary Dx) 01/11/2024 11:45 AM CDT Office Visit [facility] Oncology [address] [facility] Floor 5 [place] [address] Gautam Cope MD Prostate cancer (HCC) (Primary Dx) 01/11/2024 11:00 AM CDT Lab [facility] - Lab Collection [address] [facility] Floor [address] [place] [address] Prostate cancer (HCC) 01/10/2024 12:00 PM CDT Office Visit [facility] [address] [place] [address] Kraig Ching MD Primary hypertension (Primary Dx); Type 2 diabetes mellitus with stage 3a chronic kidney disease, with long-term current use of insulin (HCC); Prostate cancer (HCC); Fatigue, unspecified type 01/07/2024 Telephone [facility] Oncology [address] [facility] Advanced Medicine 7th [place] [address] [place] [address] Ladi Bunch, SHEA Appointments>01/11/24 >ACB from Last [...] 01/17/2019 Influenza, Unspecified 01/17/2019(Deferred: Daisy ent Refused) [employer] ([employer]) SARS-CoV-2 Vaccination 06/14/2020, 06/14/2020 Pfizer SARS-CoV-2 [...] file Legal Sex Male 4:46 PM BUSINESS LEADER Gender Identity Not on file Sexual [...] to monitor diabetes and kidney status, etc. [facility] Chronic Pain Care Plan Chronic Care Management No change(03/23 1:47 PM BUSINESS LEADER) No Ingrid Oden, RN Note: Problem: Chronic Pain Goals: 1. Minimize further functional decline 2. Maximize quality of life 3. Control pain Strategies: - Activity/exercise program recommendation - Conservative stepwise pain medicine strategy with multi-disciplinary approach - Recommend healthy lifestyle strategies and compensatory methods as needed Medical Devices Implanted Type Area Incident Response Coordinator Device Identifier Shelf Expiration Date Model / Serial / Lot [employer] Lens Iol Cna0t0.195 [facility]onom Cna0t0.195 - [id number] - [id number] Implanted:Qty: 1 on 06/09/2023 by Higinio Connolly MD at [facility] Lens Right: Eye [employer] [id number] 10/27/2025 CNA0T0.19 5 / [id number] / [employer] Lens Iol Cna0t0.200 [employer] Cna0t0.200 - [id number] - [id number] Implanted:Qty: 1 on 05/19/2023 by Higinio Connolly MD at [facility] Left: Eye [employer] [id number] 10/06/2025 CNA0T0.20 0 / [id number] / Procedures Procedure Name Priority Date/Time [...] (HCC) LIPID PANEL Routine 03/08/2023 11:55 AM BUSINESS LEADER Hyperlipidemia, unspecified hyperlipidemia type ALBUMIN CREATININE RATIO, URINE Routine 01/01/2023 10:40 AM CDT Type 2 diabetes mellitus with stage 3a chronic kidney disease, with long-term current use of insulin ([facility]) DIABETES EYE EXAM Routine 06/29/2018 from Last 3 Months or Most Recently Relevant to Health Maintenance Results * [facility] Visual Field - OS - Left Eye (01/27/2024 11:46 AM CDT) Pathologist [facility] Pattern Deviation OS 15.38 CONTINUUM Mean Deviation OS -15.18 CONTINUUM Anatomical Region Laterality Modality Head Visual Field Narrative 01/27/2024 11:46 AM CDT Fixation was borderline. Cooperation was good. Reliability was good. Progression has been stable. Foveal threshold was normal. Findings include inferior altitudinal defect. Mean Deviation was -15.18. Pattern Deviation was 15.38. us Higinio Connolly MD [facility] VISUAL FIELD Final Re sult * (ABNORMAL) eGFR (01/11/2024 11:10 AM CDT) Pathologist [facility] Emergency Department eGFR 34(L) >=60 mL/min/1. 73 m2 Comment: [...] MD LAB BLOOD ORDERABLES Final Resul t [facility] Department [place] [address] * (ABNORMAL) Differential, auto (01/11/2024 11:10 AM CDT) Neutrophil abs 11.8(H) 1.5 - 6.5 K/cumm Comment:Testing performed by : [facility], [address] [place] [phone] Lymphocyte abs 1.1 0.8 - 3.3 K/cumm CERNER BJ Comment:Testing performed by : [facility], [address] [place] [phone] Monocyte abs 0.8 0.2 - 0.8 K/cumm CERNER BJ Comment:Testing performed by : [facility], [address] [place] [phone] Eosinophil abs 0.1 0.0 - 0.5 K/cumm CERNER BJ Comment:Testing performed by : [facility], [address] [place] [phone] Basophil abs 0.1 0.0 - 0.1 K/cumm CERNER BJ Comment:Testing performed by : [facility], [address] [place] [phone] Neutrophil pct 84.3 % CERNER BJ Comment: Interpretive Data Percent cell count reference ranges are not reported, since discordance with absolute values may lead to misinterpretation of CBC data. Current Interpretive Data was last revised on 2017. Testing performed by: [facility], [address] [place] [phone] Lymphocyte pct 8.2 % CERONEAL PERDOMO Comment: Interpretive Data Percent cell count reference ranges are not reported, since discordance with absolute values may lead to misinterpretation of CBC data. Current Interpretive Data was last revised on 2017. Testing performed by: [facility], [address] [place] [phone] Monocyte pct 6.1 % CERONEAL PERDOMO Comment: Interpretive Data Percent cell count reference ranges are not reported, since discordance with absolute values may lead to misinterpretation of CBC data. Current Interpretive Data was last revised on 2017. Testing performed by: [facility], [address] [place] [phone] Eosinophil pct 0.6 % CERONEAL PERDOMO Comment: Interpretive Data Percent cell count reference ranges are not reported, since discordance with absolute values may lead to misinterpretation of CBC data. Current Interpretive Data was last revised on 2017. Testing performed by: [facility], [address] [place] [phone] Basophil pct 0.8 % CERONEAL PERDOMO Comment: Interpretive Data Percent cell count reference ranges are not reported, since discordance with absolute values may lead to misinterpretation of CBC data. Current Interpretive Data was last revised on 2017. Testing performed by: [facility], [address] [place] [phone] Blood 01/11/2024 11:1 0 AM CDT 01/11/2024 11:13 AM CDT us Gautam Cope MD LAB BLOOD ORDERABLES Final Resul t [facility] Department [place] [address] * (ABNORMAL) CBC with auto differential (01/11/2024 11:10 AM CDT) WBC 14.0(H) 3.8 - 9.9 K/cumm Comment:Testing performed by : [facility], [address] [place], [place] [phone] Hgb 12.9(L) 13.0 - 17.5 g/dL CERNER BJ Comment:Testing performed by : [facility], [address] [place], [place] [phone] Hct 40.7 38.9 - 50.3 % CERNER BJ Comment:Testing performed by : [facility], [address] [place], [place] [phone] Plt 381 150 - 400 K/cumm CERNER BJ Comment:Testing performed by : [facility], [address] [place], [place] [phone] MPV 7.6 6.8 - 10.4 fL CERNER BJ Comment:Testing performed by : [facility], [address] [place], [place] [phone] RBC 4.67 4.30 - 5.80 M/cumm CERNER BJ Comment:Testing performed by : [facility], [address] [place], [place] [phone] MCV 87.2 81.3 - 96.4 fL CERNER BJ Comment:Testing performed by : [facility], [address] [place], [place] [phone] MCH 27.7 27.1 - 33.3 pg CERNER BJ Comment:Testing performed by : [facility], [address] [place], [place] [phone] MCHC 31.8(L) 32.3 - 35.7 g/dL CERNER BJ Comment:Testing performed by : [facility], [address] [place] [address] RDW CV 15.0(H) 11.1 - 14.9 % CERNER BJ Comment:Testing performed by : [facility], [address] [place], [place] [phone] NRBC abs 0.00 0.00 - 0.01 K/cumm CERNER BJ Comment:Testing performed by : [facility], [address] [place] [address] Blood 01/11/2024 11:1 0 AM CDT 01/11/2024 11:13 AM CDT Gautam Cope MD LAB BLOOD ORDERABLES Final Resul t Performing Organization Address [facility] Co de Phone Number [facility] [place] [address] * PSA diagnostic (01/11/2024 11:10 AM CDT) [...] ORDERABLES Final Resul t Performing Organization Address City/[facility]/ZIP Co de Phone Number [facility] [place] [address] * Lactate dehydrogenase (LD) (01/11/2024 11:10 AM CDT) Lactate dehydrogenase (LDH) 191 100 - 250 Units/L Blood 01/11/2024 11:1 0 AM CDT 01/11/2024 11:21 AM CDT us Gautam Cope MD LAB BLOOD ORDERABLES Final Resul t [facility] Department [place] [address] * (ABNORMAL) Comprehensive metabolic panel (01/11/2024 11:10 AM CDT) Pathologist [facility] Sodium 141 135 - 145 mmol/L Potassium, pl 4.7 3.3 - 4.9 mmol/L [facility] Chloride 103 97 - 110 mmol/L [facility] CO2 31 22 - 32 mmol/L [facility] Anion gap 7 2 - 15 mmol/L [facility] BUN 39(H) 6 - 25 mg/dL [facility] Creatinine 1.93(H) 0.80 - 1.30 mg/dL [facility] Glucose 152 70 - 199 mg/dL [facility] [...] 2022. Calcium 9.1 8.5 - 10.3 mg/dL [facility] Bilirubin, total 0.5 0.1 - 1.2 mg/dL [facility] Protein, pl 6.7 6.5 - 8.5 g/dL [facility] Albumin 3.6 3.5 - 5.0 g/dL [facility] Alk phos 140(H) 40 - 130 Units/L [facility] ALT 9 7 - 55 Units/L [facility] AST 14 10 - 50 Units/L [facility] Blood 01/11/2024 11:1 0 AM CDT 01/11/2024 11:21 AM CDT Gautam Cope MD LAB BLOOD ORDERABLES Final Resul t Performing Organization Address [facility] de Phone Number [facility] [place] [address] * (ABNORMAL) Hemoglobin A1c (10/19/2023 11:05 AM CDT) Pathologist [facility] Hgb A1C 8.0(H) 4.0 - 5.6 % Estimated Average Glucose 183 mg/dL [facility] Comment: The ADA recommends reporting [...] ORDERABLES Final Resul t Performing Organization Address [facility] de Phone Number [facility] Department [place] [address] * (ABNORMAL) Lipid panel (03/08/2023 11:55 AM BUSINESS LEADER) Pathologist [facility] Cholesterol 193 30 - 199 mg/dL [facility] Comment: Interpretive Data Ages < [...] on 2017. Triglycerides 250(H) <=149 mg/dL [facility] Comment: Interpretive Data Ages < [...] on 2017. HDL 36(L) >=40 mg/dL [facility] Comment: Interpretive Data Ages < [...] on 2017. LDL, calculated 107 <=129 mg/dL [facility] Comment: Interpretive Data Ages < [...] revised on 2017. Non-HDL Cholesterol 157 mg/dL [facility] Comment: Interpretive Data Ages < [...] last revised on 2017. Chol/HDL ratio 5 [facility] Blood 03/08/2023 11:5 5 AM BUSINESS LEADER 03/08/2023 3:48 PM BUSINESS LEADER us Kraig Ching MD LAB BLOOD ORDERABLES Final Re sult Performing Organization Address [facility] de Phone Number [facility] [place] [address] * (ABNORMAL) Albumin Creatinine Ratio, Urine (01/01/2023 10:40 AM CDT) Albumin Ur 227.3 mg/L [facility] Comment: Interpretive Data No reference range established. Current interpretive data was last revised 2018. Creatinine Ur 66.5 mg/dL [facility] Comment: Interpretive Data No reference range established. Current interpretive data was last revised 2018. Albumin Creatinine Ratio, Ur 342(H) 1 - 29 mg/g [facility] Urine 01/01/2023 10:4 0 AM CDT 01/01/2023 10:45 AM CDT Kraig Ching MD LAB URINE ORDERABLES Final Re sult Performing Organization Address [facility] de Phone Number [facility] [place] [address] * DIABETES EYE EXAM (06/29/2018) Pathologist [facility] Diabetic Eye Exam Normal Historical Provider HEALTH MAINTENANCE Final Result from Last 3 Months or Most Recently Relevant to Health Maintenance Insurance [employer] MEDICARE T MEDICARE T MEDICARE Advance Directives For more information, please contact: [phone] * Full Code (Latest Code Status on File) Date Activated Date Inactivated Comments 12/16/2017 2:44 PM 12/16/2017 7:18 PM Care Teams Electrolysist Relationship Specialty Start Date End Date Kraig Ching MD [address] [place] [address] PCP - General 07/10/16 Gautam Cope MD [address] [place] [address] Medical Oncologist/Cookie Breaker Medical Oncology 08/18/18 Tramaine Roe MD [address] [place] [address] Referring Physician Urology 08/18/18 Sukhwinder Uribe MD [address] [place] [address] Consulting Physician Urology 08/18/18 Shay Guillermo MD [address] [place] [address] Referring Physician Urology 08/18/18 Marsha Landis, RN Registered Nurse 11/17/18
--- OUTSIDE RECORDS SUMMARY | 2024-03-31 11:24 | XMS_ITS | Encounter Summary ---
Author Organization [facility] Address [address] [place] [address] Phone Care Team Providers Care Staff Radiographer Name Role Phone Kraig Ching MD Primary Care Provider Gautam Cope MD Unavailable Tramaine Roe MD Unavailable [phone] Sukhwinder Uribe MD Unavailable Shay Guillermo MD Unavailable Marsha Landis RN Unavailable Unavailab le Encounter Details Date Type Department Care Team (Late st Contact Info) Description 07/12/2023 Orders Only [facility] Oncology [address] [facility] Advanced Medicine 7th [place] [address] [place] [address] Gautam Cope MD [address] [facility] [address] [place] [address] Social History Tobacco Use Types Packs/Day Years [...] on file Legal Sex Male 4:46 PM MOLDER SWEEP Gender Identity Not on file Sexual Orientation [...] Chronic Care Management No change(03/23 1:47 PM MOLDER SWEEP) No Ingrid Oden, RN Note: Problem: Chronic Pain Goals: 1. Minimize further functional decline 2. Maximize quality of life 3. Control pain Strategies: - Activity/exercise program recommendation - Conservative stepwise pain medicine strategy with multi-disciplinary approach - Recommend healthy lifestyle strategies and compensatory methods as needed documented as of this encounter Visit Diagnoses Not on filedocumented in this encounter Care Teams Staff Radiographer Relationship Specialty Start Date End Date Kraig Ching MD [address] [place] [address] PCP - General 07/10/16 Gautam Cope MD [address] [facility] [address] [place] [address] Medical Oncologist/Construction Ironworker Helper Medical Oncology 08/18/18 Tramaine Roe MD [address] [place] [address] Referring Physician Urology 08/18/18 Sukhwinder Uribe MD [address] [facility] [address] [place] [address] Consulting Physician Urology 08/18/18 Shay Guillermo MD [address] [facility] [address] [place] [address] Referring Physician Urology 08/18/18 Marsha Landis, RN Registered Nurse 11/17/18 documented as of this encounter
--- OUTSIDE RECORDS SUMMARY | 2024-03-31 11:24 | XMS_ITS | Encounter Summary ---
Author Organization [facility] Address [address] [place] [address] Phone Care Team Providers Care Fax Machine Repairer Name Role Phone Kraig Ching MD Primary Care Provider [phone] Gautam Cope MD Unavailable Tramaine Roe MD Unavailable [phone] Sukhwinder Uribe MD Unavailable [phone] Shay Guillermo MD Unavailable Marsha Landis RN Unavailable Unavailab Reason for Referral * Diagnostic Imaging (Routine) - Authorized Specialty Diagnoses / Procedures Referred By Saleem narvaez Referred To Contact Diagnoses Primary open angle glaucoma (POAG) of left eye, moderate stage Procedures OCT, Optic Nerve - OU - Both Eyes Higinio Connolly MD [address] [facility] [address] [place] [address] Phone: tel: fax: [facility] (All Locations) Referral ID Status Reason Start Date Expiration Date V isits Requested Visits Authorized [id number] Authorized 01/27/2024 02/25/2025 1 1 Reason for [...] - Left Eye Higinio Connolly MD [address] [facility] [address] [place] [address] Phone: tel: fax: [facility] (All Locations) Referral ID Status Reason Start Date Expiration Date Visits Re quested Visits Authorized [id number] Closed 10/07/2023 11/05/2024 1 1 Encounter Details Date Type Department Care Team (Late st Contact Info) Description 01/27/2024 11:00 AM CDT Office Visit [facility] Ophthalmology [address] 2[address] [place] [address] Higinio Connolly MD [address] [facility] [address] [place], [place] [id number] Primary open angle glaucoma (POAG) of left [...] on file Legal Sex Male 4:46 PM PICKET LABOR UNION Gender Identity Not on file Sexual Orientation [...] to monitor diabetes and kidney status, etc. [facility] Chronic Pain Care Plan Chronic Care Management No change(03/23 1:47 PM PICKET LABOR UNION) No Ingrid Oden RN Note: Problem: Chronic [...] Eye (01/27/2024 11:46 AM CDT) Pathologist [facility] Pattern Deviation OS 15.38 CONTINUUM Mean Deviation [...] lens, no Posterior capsular opacification Care Teams Fax Machine Repairer Relationship Specialty Start Date End Date Kraig Ching MD [address] [facility] [address] [place] [address] PCP - General 07/10/16 Gautam Cope MD [address] [facility] [address] [place] [address] Medical Oncologist/School Child Care Attendant Medical Oncology 08/18/18 Tramaine Roe MD [address] [facility] [address] [place] [address] Referring Physician Urology 08/18/18 Sukhwinder Uribe MD [address] [facility] [address] [place] [address] Consulting Physician Urology 08/18/18 Shay Guillermo MD [address] [facility] [address] [place] [address] Referring Physician Urology 08/18/18 Marsha Landis, RN Registered Nurse 11/17/18 documented as of this encounter
--- OUTSIDE RECORDS SUMMARY | 2024-03-31 11:24 | XMS_ITS | Encounter Summary ---
Author Organization [facility] Healthcare Address [address] [place] [address] Care Team Providers Care Adjunct Business Instructor Name Role Phone Kraig Ching MD Primary Care Provider [phone] Gautam Cope MD Unavailable Tramaine Roe MD Unavailable [phone] Sukhwinder Uribe MD Unavailable [phone] Shay Guillermo MD Unavailable [phone] Marsha Landis RN Unavailable Unavailab le Encounter Details Date Type Department Care Team (Late st Contact Info) Description 08/09/2023 Orders Only [facility] Medical Group Cardiology [address] [place] [address] Ani Amaro, LILIA [address] [place] [address] Social History Tobacco Use Types [...] file Legal Sex Male 4:46 PM BOOK BINDER Gender Identity Not on file Sexual [...] Care Management No change(03/23 1:47 PM BOOK BINDER) No Ingrid Oden, SHEA Note: Problem: Chronic [...] filedocumented in this encounter Care Teams Adjunct Business Instructor Relationship Specialty Start Date End Date Kraig Ching MD [address] [facility] [address] [place] [address] PCP - General 07/10/16 Gautam Cope MD [address] [place] [address] Medical Oncologist/Enterprise Sales Executive Medical Oncology 08/18/18 Tramaine Roe MD [address] [facility] [address] [place] [address] Referring Physician Urology 08/18/18 Sukhwinder Uribe MD [address] [facility] [address] [place] [address] Consulting Physician Urology 08/18/18 Shay Guillermo MD [address] [facility] [address] [place] [address] Referring Physician Urology 08/18/18 Marsha Landis, RN Registered Nurse 11/17/18 documented as of this encounter
--- OUTSIDE RECORDS SUMMARY | 2024-03-31 11:24 | XMS_ITS | Encounter Summary ---
Author Organization [facility] Healthcare Address [address] [place] [address] Care Team Providers Care Shake Splitter Name Role Phone Kraig Ching MD Primary Care Provider Gautam Cope MD Unavailable Tramaine Roe MD Unavailable [phone] Sukhwinder Uribe MD Unavailable [phone] Shay Guillermo MD Unavailable [phone] Marsha Landis RN Unavailable Unavailab le Encounter Details Date Type Department Care Team (Late st Contact Info) Description 10/05/2023 1:00 PM CDT Office Visit 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 Orders: - Thyroid Function [place]; Future - Vitamin B12; Future Other orders [...] Chronic Care Management No change(03/23 1:47 PM NUMERICAL CONTROL PROGRAMMER) No Ingrid Oden RN Note: Problem: Chronic [...] ORDERABLES Final Re sult Performing Organization Address [facility] Co de Phone Number [facility] [place] [address] * (ABNORMAL) Thyroid Function [place] (10/19/2023 11:05 AM CDT) TSH 4.25(H) 0.30 - 4.20 mcIUnit/mL Blood 10/19/2023 11:0 5 AM CDT 10/19/2023 11:22 AM CDT Kraig Ching MD LAB BLOOD ORDERABLES Final Re sult Performing Organization Address City/[facility]/ZIP Co de Phone Number [facility] [place] [address] documented in this encounter Visit Diagnoses Diagnosis [...] documented as of this encounter Care Teams Shake Splitter Relationship Specialty Start Date End Date Kraig Ching MD [address] [place] [address] PCP - General 07/10/16 Gautam Cope MD [address] [place] [address] Medical Oncologist/Hoop Driving Machine Operator Helper Medical Oncology 08/18/18 Tramaine Roe MD [address] [place] [address] Referring Physician Urology 08/18/18 Sukhwinder Uribe MD [address] [place] [address] Consulting Physician Urology 08/18/18 Shay Guillermo MD [address] [place] [address] Referring Physician Urology 08/18/18 Marsha Landis, RN Registered Nurse 11/17/18 documented as of this encounter
--- OUTSIDE RECORDS SUMMARY | 2024-03-31 11:24 | XMS_ITS | Encounter Summary ---
Author Organization [facility] Healthcare Address [address] [place] [address] Care Team Providers Care Network Contract Manager Name Role Phone Kraig Ching MD Primary Care Provider [phone] Gautam Cope MD Unavailable Tramaine Roe MD Unavailable [phone] Sukhwinder Uribe MD Unavailable [phone] Shay Guillermo MD Unavailable [phone] Marsha Landis RN Unavailable Unavailab le Encounter Details Date Type Department Care Team (Latest Contact Info) Description 08/19/2023 4:21 PM CDT - 08/19/2023 11:59 PM CDT Hospital Encounter [facility] [address] [place] [address] Discharge Disposition: Discharge to home or self [...] on file 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 Minimize further functional decline 2. Maximize quality of life 3. Control pain Strategies: - Activity/exercise program recommendation - Conservative stepwise pain medicine strategy with multi-disciplinary approach - Recommend healthy lifestyle strategies and compensatory methods as needed documented as of this encounter Visit Diagnoses Not on filedocumented in this encounter Care Teams Network Contract Manager Relationship Specialty Start Date End Date Kraig Ching MD [address] [place] [address] PCP - General 07/10/16 Gautam Cope MD [address] [place] [address] Medical Oncologist/Mill Operator Helper Medical Oncology 08/18/18 Tramaine Roe MD [address] [place] [address] Referring Physician Urology 08/18/18 Sukhwinder Uribe MD [address] [place] [address] Consulting Physician Urology 08/18/18 Shay Guillermo MD [address] [place] [address] Referring Physician Urology 08/18/18 Marsha Landis, RN Registered Nurse 11/17/18 documented as of this encounter
--- OUTSIDE RECORDS SUMMARY | 2024-03-31 11:24 | XMS_ITS | Encounter Summary ---
Author Organization [facility] Healthcare Address [address] [place] [address] Care Team Providers Care Community Integration Specialist Name Role Phone Kraig Ching MD Primary Care Provider [phone] Gautam Cope MD Unavailable Tramaine Roe MD Unavailable [phone] Sukhwinder Uribe MD Unavailable [phone] Shay Guillermo MD Unavailable [phone] Marsha Landis RN Unavailable Unavailab le Reason for Visit * Reason Comments Injections eligard * Episode Based Medications (Routine) - Authorized Specialty Diagnoses / Procedures Referred By Contac t Referred To Contact Oncology Diagnoses Prostate cancer (HCC) Procedures [place] LEUPROLIDE ACETATE SUSPNSION Leuprolide Every 3 Months - Prostate Gautam Cope MD [address] [facility] [address] [place] [address] Phone: tel: fax: [facility] - Infusion [address] [facility] [address] [place] [address] Referral ID Status Reason Start Date Expiration Date V isits Requested Visits Authorized [id number] Authorized 09/06/2018 07/11/2024 1 50 Encounter Details Date Type Department Care Team (Late st Contact Info) Description 01/11/2024 12:45 PM CDT Infusion [facility] - Infusion [address] [facility] [address] [place] [address] Prostate cancer (HCC) (Primary Dx) Social History [...] on file 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 Gender Identity Not on file Sexual Orientation Not on file documented as of this encounter Nursing Notes * Nalini Isbell RN - 01/11/2024 12:45 PM CDT Oncology Nursing Note [facility] [place] - INFUSION David Wei is a 83 [...] Chronic Care Management No change(03/23 1:47 PM PHARMACEUTICAL ANALYST) No Ingrid Oden, RN Note: Problem: [...] 04/2023 documented in this encounter Care Teams Community Integration Specialist Relationship Specialty Start Date End Date Kraig Ching MD [address] [place] [address] PCP - General 07/10/16 Gautam Cope MD [address] [place] [address] Medical Oncologist/Basket Filler Medical Oncology 08/18/18 Tramaine Roe MD [address] [place] [address] Referring Physician Urology 08/18/18 Sukhwinder Uribe MD [address] [facility] [address] [place] [address] Consulting Physician Urology 08/18/18 Shay Guillermo MD [address] [place] [address] Referring Physician Urology 08/18/18 Marsha Landis, RN Registered Nurse 11/17/18 documented as of this encounter
--- OUTSIDE RECORDS SUMMARY | 2024-03-31 11:24 | XMS_ITS | Encounter Summary ---
Author Organization [facility] [employer] [facility] Address [address] [place] [address] Phone Care Team Providers Care Kitchen Work Supervisor Name Role Phone Kraig Ching MD Primary Care Provider [phone] Gautam Cope MD Unavailable Tramaine Roe MD Unavailable [phone] Sukhwinder Uribe MD Unavailable [phone] Shay Guillermo MD Unavailable [phone] Marsha Ladnis RN Unavailable Unavailab le Reason for Visit * Consultation (Routine) - Authorized Specialty Diagnoses / Procedures Referred By Saleem narvaez Referred To Contact Oncology Diagnoses Prostate cancer (HCC) Tramaine Roe MD [address] [facility] [address] [place] [address] Phone: tel: fax: Gautam Cope MD [address] [facility]OGY, [address] [place] [address] Phone: tel: fax: Referral ID Status Reason Start Date Expiration Date Visits Requested Visits Authorized [id number] Authorized Specialty Services Required 08/15/2018 04/11/2024 99 99 Encounter Details Date Type Department Care Team (Late st Contact Info) Description 07/27/2023 10:15 AM CDT Lab [facility] Oncology [address] 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 Gender Identity Not on file Sexual Orientation [...] Chronic Care Management No change(03/23 1:47 PM STEWARD/STEWARDESS NIGHT) No Ingrid Oden, SHEA Note: Problem: Chronic [...] 07/27/2023 documented in this encounter Care Teams Kitchen Work Supervisor Relationship Specialty Start Date End Date Kraig Ching MD [address] [facility] [address] [place] [address] PCP - General 07/10/16 Gautam Cope MD [id number] [place] [address] Medical Oncologist/Jewelry Sales Coordinator Medical Oncology 08/18/18 Tramaine Roe MD [id number] [place] [address] Referring Physician Urology 08/18/18 Sukhwinder Uribe MD [address] [facility] [address] [place] [address] Consulting Physician Urology 08/18/18 Shay Guillermo MD [address] [facility] [address] [place] [address] Referring Physician Urology 08/18/18 Marsha Landis RN Registered Nurse 11/17/18 documented as of this encounter
--- OUTSIDE RECORDS SUMMARY | 2024-03-31 11:24 | XMS_ITS | Encounter Summary ---
Author Organization [facility] Address [address] [place] [address] Phone Care Team Providers Care Electronic Scale Assembler And Tester Name Role Phone Kraig Ching MD Primary Care Provider Gautam Cope MD Unavailable Tramaine Roe MD Unavailable [phone] Sukhwinder Uribe MD Unavailable [phone] Shay Guillermo MD Unavailable [phone] Marsha Landis RN Unavailable Unavailab Reason for Visit * Reason Onset Date Comments sooner appt 08/20/2023 Encounter Details Date Type Department Care Team (Late st Contact Info) Description 08/20/2023 Telephone 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 [facility] Chronic Pain Care Plan Chronic Care Management No change(03/23 1:47 PM SOFTWARE QUALITY SPECIALIST) No Ingrid Oden, SHEA Note: Problem: Chronic Pain Goals: 1. Minimize further functional decline 2. Maximize quality of life 3. Control pain Strategies: - Activity/exercise program recommendation - Conservative stepwise pain medicine strategy with multi-disciplinary approach - Recommend healthy lifestyle strategies and compensatory methods as needed documented as of this encounter Visit Diagnoses Not on filedocumented in this encounter Care Teams Electronic Scale Assembler And Tester Relationship Specialty Start Date End Date Kraig Ching MD [address] [facility] [address] [place] [address] PCP - General 07/10/16 Gautam Cope MD [address] [facility] [address] [place] [address] Medical Oncologist/Alarm Signal Operator Medical Oncology 08/18/18 Tramaine Roe MD [address] [facility] [address] [place] [address] Referring Physician Urology 08/18/18 Sukhwinder Uribe MD [address] [facility] [address] [place] [address] Consulting Physician Urology 08/18/18 Shay Guillermo MD [address] [facility] [address] [place] [address] Referring Physician Urology 08/18/18 Marsha Landis, RN Registered Nurse 11/17/18 documented as of this encounter
--- OUTSIDE RECORDS SUMMARY | 2024-03-31 11:24 | XMS_ITS | Encounter Summary ---
Author Organization [facility] Healthcare Address [address] [place] [address] Care Team Providers Care Railroad Crossing Protection Maintainer Name Role Phone Kraig Ching MD Primary Care Provider [phone] Gautam Cope MD Unavailable Tramaine Roe MD Unavailable [phone] Sukhwinder Uribe MD Unavailable [phone] Shay Guillermo MD Unavailable [phone] Marsha Landis RN Unavailable Unavailab le Reason for Visit * Reason Comments Injections Eligard * Episode Based Medications (Routine) - Authorized Specialty Diagnoses / Procedures Referred By Contac t Referred To Contact Oncology Diagnoses Prostate cancer (HCC) Procedures [place] LEUPROLIDE ACETATE SUSPNSION Leuprolide Every 3 Months - Prostate Gautam Cope MD [address] [facility] [address] [place] [address] Phone: tel: fax: [facility] - Infusion [address] [facility] Floor 5 [place] [address] Referral ID Status Reason Start Date Expiration Date V isits Requested Visits Authorized [id number] Authorized 09/06/2018 07/11/2024 1 50 Encounter Details Date Type Department Care Team (Late st Contact Info) Description 10/19/2023 12:15 PM CDT Infusion [facility] [address] [facility] Advanced Medicine 7th [place] [address] Prostate cancer (HCC) (Primary Dx) [...] on file 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 David Wei is a [...] Chronic Care Management No change(03/23 1:47 PM MARKETING FINANCE MANAGER) No Ingrid Oden, SHEA Note: Problem: [...] 12/2023 documented in this encounter Care Teams Railroad Crossing Protection Maintainer Relationship Specialty Start Date End Date Kraig Ching MD [address] [facility] [address] [place] [address] PCP - General 07/10/16 Gautam Cope MD [address] [facility] [address] [place] [address] Medical Oncologist/District Captain Medical Oncology 08/18/18 Tramaine Roe MD [address] [facility] [address] [place] [address] Referring Physician Urology 08/18/18 Sukhwinder Uribe MD [address] [facility] [address] [place] [address] Consulting Physician Urology 08/18/18 Shay Guillermo MD [address] [facility] [address] [place] [address] Referring Physician Urology 08/18/18 Marsha Landis, RN Registered Nurse 11/17/18 documented as of this encounter
--- OUTSIDE RECORDS SUMMARY | 2024-03-31 11:24 | XMS_ITS | Encounter Summary ---
Author Organization [facility] Address [address] [place] [address] Phone Care Team Providers Care Instrument Mechanic Name Role Phone Kraig Ching MD Primary Care Provider [phone] Gautam Cope MD Unavailable Tramaine Roe MD Unavailable [phone] Sukhwinder Uribe MD Unavailable [phone] Shay Guillermo MD Unavailable [phone] Marsha Landis RN Unavailable Unavailab le Reason for Referral * Diagnostic Imaging (Routine) - Closed Specialty Diagnoses / Procedures Referred By Saleem t Referred To Contact Diagnoses Primary open angle glaucoma (POAG) of left eye, moderate stage Procedures Kurtz Visual Field - OS - Left Eye Higinio Connolly MD [address] [facility] [address] [place] [address] Phone: tel: fax: [facility] (All Locations) Referral ID Status Reason Start Date Expiration Date Visits Re quested Visits Authorized [id number] Closed 10/07/2023 11/05/2024 1 1 * Diagnostic Imaging (Routine) - Authorized Specialty Diagnoses / Procedures Referred By Contulices t Referred To Contact Diagnoses Primary open angle glaucoma (POAG) of left eye, mild stage Procedures Kurtz Visual Field - OU - Both Eyes Higinio Connolly MD [address] [facility] [address] [place] [address] Phone: tel: fax: [facility] (All Locations) Referral ID Status Reason Start Date Expiration Date V isits Requested Visits Authorized [id number] Authorized 10/02/2023 10/31/2024 1 1 Reason for Visit * Reason Comments RETURN - 3 MO for HVF, DIL EXAM & GLC OC T * Diagnostic Imaging (Routine) - Closed Specialty Diagnoses / Procedures Referred By Contac t Referred To Contact Diagnoses Glaucoma suspect of both eyes Procedures Kurtz Visual Field - OU - Both Eyes Higinio Connolly MD [address] [address] Phone: tel: fax: [facility] (All Locations) Referral ID Status Reason Start Date Expiration Date Visits Re quested Visits Authorized [id number] Closed 06/25/2023 07/24/2024 1 1 Encounter Details Date Type Department Care Team (Late st Contact Info) Description 10/07/2023 11:00 AM CDT Office Visit [facility] Ophthalmology [address] [facility] 2nd Floor [address] [place] [address] Higinio Connolly MD [address] [address] Primary open angle glaucoma (POAG) of left [...] file 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 [facility] Chronic Pain Care Plan Chronic Care Management No change(03/23 1:47 PM SENIOR TECHNICAL RECRUITER) No Ingrid Oden, SHEA Note: Problem: Chronic [...] Normal Normal Periphery Normal Normal Care Teams Instrument Mechanic Relationship Specialty Start Date End Date Kraig Ching MD [address] [facility] [address] [place] [address] PCP - General 07/10/16 Gautam Cope MD [address] [facility] [address] [place] [address] Medical Oncologist/Sales Designer Medical Oncology 08/18/18 Tramaine Roe MD [address] [facility] [address] [place] [address] Referring Physician Urology 08/18/18 Sukhwinder Uribe MD [address] [facility] [address] [place] [address] Consulting Physician Urology 08/18/18 Shay Guillermo MD [address] [facility] [address] [place] [address] Referring Physician Urology 08/18/18 Marsha Landis, RN Registered Nurse 11/17/18 documented as of this encounter
--- OUTSIDE RECORDS SUMMARY | 2024-03-31 11:24 | XMS_ITS | Encounter Summary ---
Author Organization [facility] Online [facility] Address [address] [place] [address] Phone Care Team Providers Care Security Team Lead Name Role Phone Kraig Ching MD Primary Care Provider [phone] Gautam Cope MD Unavailable Tramaine Roe MD Unavailable Sukhwinder Uribe MD Unavailable [phone] Shay Guillermo MD Unavailable [phone] Marsha Landis RN Unavailable Unavailab le Reason for Visit * Reason Comments Injections Eligard * Episode Based Medications (Routine) - Authorized Specialty Diagnoses / Procedures Referred By Contac t Referred To Contact Oncology Diagnoses Prostate cancer (HCC) Procedures GA LEUPROLIDE ACETATE SUSPNSION Leuprolide Every 3 Months - Prostate Gauatm Cope MD [address] [facility] [address] [place] [address] Phone: tel: fax: [facility] - Infusion [address] [facility] Floor 5 [place] [address] Referral ID Status Reason Start Date Expiration Date V isits Requested Visits Authorized [id number] Authorized 09/06/2018 07/11/2024 1 50 Encounter Details Date Type Department Care Team (Late st Contact Info) Description 07/27/2023 12:00 PM CDT Infusion [facility] Oncology [facility] Advanced Medicine 7th [place] [address] Prostate cancer (HCC) (Primary Dx) Social History [...] on file 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 [facility] Chronic Pain Care Plan Chronic Care Management No change(03/23 1:47 PM TANKROOM TENDER) No Ingrid Oden, RN Note: Problem: [...] 07/11 documented in this encounter Care Teams Security Team Lead Relationship Specialty Start Date End Date Kraig Ching MD [address] [place], [place] [id number] PCP - General 07/10/16 Gautam Cope MD [address] [place] [address] Medical Oncologist/Roof Plumber Medical Oncology 08/18/18 Tramaine Roe MD [address] [facility] [address] [place] [address] Referring Physician Urology 08/18/18 Sukhwinder Uribe MD [address] [facility] [address] [place] [address] Consulting Physician Urology 08/18/18 Shay Guillermo MD [address] [facility] [address] [place] [address] Referring Physician Urology 08/18/18 Marsha Landis, RN Registered Nurse 11/17/18 documented as of this encounter
--- OUTSIDE RECORDS SUMMARY | 2024-03-31 11:24 | XMS_ITS | Encounter Summary ---
Author Organization [facility] Address [address] [place] [address] Phone Care Team Providers Care Geophysical Laboratory Chief Name Role Phone Kraig Ching MD Primary Care Provider [phone] Gautam Cope MD Unavailable Tramaine Roe MD Unavailable [phone] Sukhwinder Uribe MD Unavailable [phone] Shay Guillermo MD Unavailable [phone] Marsha Landis RN Unavailable Unavailab le Reason for Visit * Diagnostic Imaging (Routine) - Closed Specialty Diagnoses / Procedures Referred By Saleem t Referred To Contact Diagnoses Glaucoma suspect of both eyes Procedures Kurtz Visual Field - OU - Both Eyes Higinio Connolly MD [address] [facility] [address] [place] [address] Phone: tel: fax: [facility] (All Locations) Referral ID Status Reason Start Date Expiration Date Visits Re quested Visits Authorized [id number] Closed 06/25/2023 07/24/2024 1 1 Encounter Details Date Type Department Care Team (Late st Contact Info) Description 10/07/2023 10:30 AM CDT Imaging Exam [facility] Ophthalmology [address] [facility] 2nd Floor [address] [place] [address] Glaucoma suspect of both eyes Social History [...] on file 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 [facility] Chronic Pain Care Plan Chronic Care Management No change(03/23 1:47 PM PILOT BOAT CAPTAIN) No Ingrid Oden, SHEA Note: Problem: Chronic [...] arcuate/altitudinal defect compared to previous studies at manager of radiology's office Higinio Connolly MD OPHTH VISUAL FIELD [...] preglaucoma documented in this encounter Care Teams Geophysical Laboratory Chief Relationship Specialty Start Date End Date Kraig Ching MD [address] [facility] [address] [place] [address] PCP - General 07/10/16 Gautam Cope MD [address] [facility] [address] [place] [address] Medical Oncologist/Sports Media Medical Oncology 08/18/18 Tramaine Roe MD [address] [facility] [address] [place] [address] Referring Physician Urology 08/18/18 Sukhwinder Uribe MD [address] [facility] [address] [place] [address] Consulting Physician Urology 08/18/18 Shay Guillermo MD [address] [facility] [address] [place] [address] Referring Physician Urology 08/18/18 Marsha Landis, RN Registered Nurse 11/17/18 documented as of this encounter
--- OUTSIDE RECORDS SUMMARY | 2024-03-31 11:24 | XMS_ITS | Encounter Summary ---
Author Organization [facility] Address [address] [place] [address] Phone Care Team Providers Care Mergers And Acquisitions Banker Name Role Phone Kraig Ching MD Primary Care Provider [phone] Gautam Cope MD Unavailable Tramaine Roe MD Unavailable [phone] Sukhwinder Uribe MD Unavailable [phone] Shay Guillermo MD Unavailable [phone] Marsha Landis RN Unavailable Unavailab le Reason for Referral * Diagnostic Imaging (Routine) - Authorized Specialty Diagnoses / Procedures Referred By Saleem narvaez Referred To Contact Diagnoses Prostate cancer (HCC) Procedures NM bone scan whole body Gautam Cope MD [address] [facility] [address] [place] [address] Phone: tel: fax: [address] [address] Referral ID Status Reason Start Date Expiration Date V isits Requested Visits Authorized [id number] Authorized 12/31/2023 01/29/2025 2 2 * MRI/CAT/PET Scan (Routine) - Authorized Specialty Diagnoses / Procedures Referred By Saleem t Referred To Contact Radiology Diagnoses Prostate cancer (HCC) Procedures CT chest abdomen pelvis without contrast Gautam Cope MD [address] [facility] [address] [place] [address] Phone: tel: fax: [facility] 1 [facility] [place] [address] Referral ID Status Reason Start Date Expiration Date V isits Requested Visits Authorized [id number] Authorized 12/31/2023 01/29/2025 1 1 Reason for Visit * Consultation (Routine) - Authorized Specialty Diagnoses / Procedures Referred By Contac t Referred To Contact Oncology Diagnoses Prostate cancer (HCC) Tramaine Roe MD [address] [employer] [facility] [address] [place] [address] Phone: tel: fax: Gautam Cope MD [address] DIV MEDICAL ONCOLOGY, [address], [address], [address] [place] [address] Phone: tel: fax: Referral ID Status Reason Start Date Expiration Date Visits Requested Visits Authorized [id number] Authorized Specialty Services Required 08/15/2018 04/11/2024 99 99 Encounter Details Date Type Department Care Team (Late st Contact Info) Description 01/11/2024 11:45 AM CDT Office Visit [facility] Oncology [address] [facility] Floor 5 [place] [address] Gautam Cope MD [address] [employer] [facility] [address] [place] [address] Prostate cancer (HCC) (Primary Dx) Social History [...] on file 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 Guillermo. 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 [facility] Chronic Pain Care Plan Chronic Care Management No change(03/23 1:47 PM CHARGE ACCOUNTS AUDIT CLERK) No Ingrid Oden, RN Note: Problem: Chronic [...] 12/31/2023 documented in this encounter Care Teams Mergers And Acquisitions Banker Relationship Specialty Start Date End Date Kraig Ching MD [address] [facility] [address] [place] [address] PCP - General 07/10/16 Gautam Cope MD [address] [facility] [address] [place] [address] Medical Oncologist/Cavity Pump Operator Medical Oncology 08/18/18 Tramaine Roe MD [address] [facility] [address] [place] [address] Referring Physician Urology 08/18/18 Sukhwnider Uribe MD [address] [facility] [address] [place] [address] Consulting Physician Urology 08/18/18 Shay Guillermo MD [address] [facility] [address] [place] [address] Referring Physician Urology 08/18/18 Marsha Landis, RN Registered Nurse 11/17/18 documented as of this encounter
--- OUTSIDE RECORDS SUMMARY | 2024-03-31 11:24 | XMS_ITS | Encounter Summary ---
Author Organization [facility] Healthcare Address [address] [place] [address] Care Team Providers Care Machine Sprayer Name Role Phone rKaig Ching MD Primary Care Provider [phone] Gautam Cope MD Unavailable Tramaine Roe MD Unavailable [phone] Sukhwinder Uribe MD Unavailable [phone] Shay Guillermo MD Unavailable [phone] Marsha Landis RN Unavailable Unavailab le Reason for Visit * Consultation (Routine) - Authorized Specialty Diagnoses / Procedures Referred By Contac t Referred To Contact Oncology Diagnoses Prostate cancer (HCC) Tramaine Roe MD [address] [place] [address] Phone: tel: fax: Gautam Cope MD [address] DIV IM MEDICAL ONCOLOGY, [address], [address], [address] [place] [address] Phone: tel: fax: Referral ID Status Reason Start Date Expiration Date Visits Requested Visits Authorized [id number] Authorized Specialty Services Required 08/15/2018 04/11/2024 99 99 Encounter Details Date Type Department Care Team (Late st Contact Info) Description 01/11/2024 11:00 AM CDT Lab [facility] - Lab Collection [address] [facility] Floor 5 [place] [address] Prostate cancer (HCC) Social History Tobacco Use [...] on file Legal Sex Male 4:46 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 CALL CLERK Gender Identity Not on file Sexual [...] Chronic Care Management No change(03/23 1:47 PM WILL CALL CLERK) No Ingrid Oden, SHEA Note: Problem: [...] LAB BLOOD ORDERABLES Final Resul t [facility] Department of Laboratories [place], [place] [id number] * (ABNORMAL) Differential, auto (01/11/2024 11:10 AM CDT) Neutrophil abs 11.8(H) 1.5 - 6.5 K/cumm Comment:Testing performed by : [facility] Heme Lab, [address] [place] [phone] Lymphocyte abs 1.1 0.8 - 3.3 K/cumm [facility] Comment:Testing performed by : [facility], [address] [place] [phone] Monocyte abs 0.8 0.2 - 0.8 K/cumm [facility] Comment:Testing performed by : [facility]e [facility], [address] [place], [place] [id number] Eosinophil abs 0.1 0.0 - 0.5 K/cumm [facility] Comment:Testing performed by : [facility], [address] [place] [phone] Basophil abs 0.1 0.0 - 0.1 K/cumm [facility] Comment:Testing performed by : [facility], [address] [place] [phone] Neutrophil pct 84.3 % [facility] Comment: Interpretive Data Percent cell count reference ranges are not reported, since discordance with absolute values may lead to misinterpretation of CBC data. Current Interpretive Data was last revised on 2017. Testing performed by: [facility], [address] [place] [phone] Lymphocyte pct 8.2 % [facility] Comment: Interpretive Data Percent cell count reference ranges are not reported, since discordance with absolute values may lead to misinterpretation of CBC data. Current Interpretive Data was last revised on 2017. Testing performed by: [facility], [address] [place] [phone] Monocyte pct 6.1 % [facility] Comment: Interpretive Data Percent cell count reference ranges are not reported, since discordance with absolute values may lead to misinterpretation of CBC data. Current Interpretive Data was last revised on 2017. Testing performed by: [facility], [address] [place] [phone] Eosinophil pct 0.6 % [facility] Comment: Interpretive Data Percent cell count reference ranges are not reported, since discordance with absolute values may lead to misinterpretation of CBC data. Current Interpretive Data was last revised on 2017. Testing performed by: [facility]e [facility], [facility] [place] [address] Basophil pct 0.8 % [facility] Comment: Interpretive Data Percent cell count reference ranges are not reported, since discordance with absolute values may lead to misinterpretation of CBC data. Current Interpretive Data was last revised on 2017. Testing performed by: [facility], [address] [place] [phone] Blood 01/11/2024 11:1 0 AM CDT 01/11/2024 11:13 AM CDT us Gautam Cope MD LAB BLOOD ORDERABLES Final Resul t Performing Organization Address City/State/[facility] Co de Phone Number [facility] Department [place] [address] * PSA diagnostic (01/11/2024 11:10 AM CDT) [...] t [facility] [place] [address] * (ABNORMAL) Comprehensive metabolic panel (01/11/2024 11:10 AM CDT) Sodium 141 135 - 145 mmol/L Potassium, pl 4.7 3.3 - 4.9 mmol/L [facility] Chloride 103 97 - 110 mmol/L [facility] CO2 31 22 - 32 mmol/L [facility] Anion gap 7 2 - 15 mmol/L [facility] BUN 39(H) 6 - 25 mg/dL [facility] Creatinine 1.93(H) 0.80 - 1.30 mg/dL [facility] Glucose 152 70 - 199 mg/dL [facility] Comment: Interpretive Data Fasting glucose [...] 2022. Calcium 9.1 8.5 - 10.3 mg/dL [facility] Bilirubin, total 0.5 0.1 - 1.2 mg/dL [facility] Protein, pl 6.7 6.5 - 8.5 g/dL [facility] Albumin 3.6 3.5 - 5.0 g/dL [facility] Alk phos 140(H) 40 - 130 Units/L [facility] ALT 9 7 - 55 Units/L [facility] AST 14 10 - 50 Units/L [facility] Blood 01/11/2024 11:1 0 AM CDT 01/11/2024 11:21 AM CDT us Gautam Cope MD LAB BLOOD ORDERABLES Final Resul t [facility] Department [place] [address] * (ABNORMAL) CBC with auto differential (01/11/2024 11:10 AM CDT) WBC 14.0(H) 3.8 - 9.9 K/cumm Comment:Testing performed by : [facility], [address] [place] [address] Hgb 12.9(L) 13.0 - 17.5 g/dL [facility] Comment:Testing performed by : [facility], [address] [place] [address] Hct 40.7 38.9 - 50.3 % [facility] Comment:Testing performed by : [facility], [address] [place] [address] Plt 381 150 - 400 K/cumm [facility] Comment:Testing performed by : [facility], [address] [place] [address] MPV 7.6 6.8 - 10.4 fL [facility] Comment:Testing performed by : [facility], [address] [place] [address] RBC 4.67 4.30 - 5.80 M/cumm [facility] Comment:Testing performed by : [facility], [address] [place] [address] MCV 87.2 81.3 - 96.4 fL [facility]J Comment:Testing performed by : [facility], [address] [place], [place] [id number] MCH 27.7 27.1 - 33.3 pg [facility] Comment:Testing performed by : [facility], [address] [place], [place] [id number] MCHC 31.8(L) 32.3 - 35.7 g/dL [facility] Comment:Testing performed by : [facility], [address] [place], [place] [id number] RDW CV 15.0(H) 11.1 - 14.9 % [facility] Comment:Testing performed by : [facility], [address] [place], [place] [id number] NRBC abs 0.00 0.00 - 0.01 K/cumm [facility] Comment:Testing performed by : [facility], [address] [place], [place] [id number] Blood 01/11/2024 11:1 0 AM CDT 01/11/2024 11:13 AM CDT us Gautam Cope MD LAB BLOOD ORDERABLES Final Resul t Performing Organization Address City/[facility] Co de Phone Number [facility] Department [place] [address] * Lactate dehydrogenase (LD) (01/11/2024 11:10 AM CDT) Lactate dehydrogenase (LDH) 191 100 - 250 Units/L Blood 01/11/2024 11:1 0 AM CDT 01/11/2024 11:21 AM CDT us Gautam Cope MD LAB BLOOD ORDERABLES Final Resul t Performing Organization Address [facility]/ZIP Co de Phone Number [facility] [place] [address] documented in this encounter Visit Diagnoses Diagnosis Prostate cancer (HCC) Malignant neoplasm of prostate documented in this encounter Orders Appointment Requests Count Last Ordered Date Fi rst Ordered Date ONCBCN LAB APPOINTMENT 1 01/11/2024 documented in this encounter Care Teams Machine Sprayer Relationship Specialty Start Date End Date Kraig Ching MD [address] [place] [address] PCP - General 07/10/16 Gautam Cope MD [address] [place] [address] Medical Oncologist/Crane Chaser Medical Oncology 08/18/18 Tramaine Roe MD [address] [place] [address] Referring Physician Urology 08/18/18 Sukhwinder Uribe MD [address] [place] [address] Consulting Physician Urology 08/18/18 Shay Guillermo MD [address] [place] [address] Referring Physician Urology 08/18/18 Marsha Landis, RN Registered Nurse 11/17/18 documented as of this encounter
--- OUTSIDE RECORDS SUMMARY | 2024-03-31 11:24 | XMS_ITS | Encounter Summary ---
Author Organization [facility] Address [address] [place] [address] Phone Care Team Providers Care Aquatics Instructor Name Role Phone Kraig Ching MD Primary Care Provider Gautam Cope MD Unavailable Tramaine Roe MD Unavailable [phone] Sukhwinder Uribe MD Unavailable Shay Guillermo MD Unavailable Marsha Landis RN Unavailable Unavailab le Encounter Details Date Type Department Care Team (Late st Contact Info) Description 03/13/2024 Orders Only [facility] Oncology [address] [facility] Floor [address] [place] [address] Gautam Cope MD [address] [facility] [address] [place], [place] [address] Social History Tobacco Use Types Packs/Day Years [...] on file 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 [facility] Chronic Pain Care Plan Chronic Care Management No change(03/23 1:47 PM CHEESE SPECIALIST) No Ingrid Oden RN Note: Problem: Chronic Pain Goals: 1. Minimize further functional decline 2. Maximize quality of life 3. Control pain Strategies: - Activity/exercise program recommendation - Conservative stepwise pain medicine strategy with multi-disciplinary approach - Recommend healthy lifestyle strategies and compensatory methods as needed documented as of this encounter Visit Diagnoses Not on filedocumented in this encounter Care Teams Aquatics Instructor Relationship Specialty Start Date End Date Kraig Ching MD [address] [place] [address] PCP - General 07/10/16 Gautam Cope MD [address] [place] [address] Medical Oncologist/Restaurant Area Manager Medical Oncology 08/18/18 Tramaine Roe MD [address] [place] [address] Referring Physician Urology 08/18/18 Sukhwinder Uribe MD [address] [place] [address] Consulting Physician Urology 08/18/18 Shay Guillermo MD [address] [facility] [address] [place] [address] Referring Physician Urology 08/18/18 Marsha Landis, RN Registered Nurse 11/17/18 documented as of this encounter
--- OUTSIDE RECORDS SUMMARY | 2024-03-31 11:24 | XMS_ITS | Encounter Summary ---
Author Organization [facility] Healthcare Address [address] [place] [address] Care Team Providers Care Tattoo Identifier Name Role Phone Kraig Ching MD Primary Care Provider [phone] Gautam Cope MD Unavailable Tramaine Roe MD Unavailable [phone] Sukhwinder Uribe MD Unavailable [phone] Shay Guillermo MD Unavailable [phone] Marsha Landis RN Unavailable Unavailab le Encounter Details Date Type Department Care Team (Late st Contact Info) Description 08/06/2023 Orders Only [facility] Medical Group Cardiology [address] [place] [address] Meño Johnson MD [address] [facility] [address] [place] [address] Social History Tobacco Use Types [...] file 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 Gender Identity Not on file Sexual Orientation [...] Chronic Care Management No change(03/23 1:47 PM COOK ICE CREAM) No Ingrid Oden RN Note: Problem: Chronic [...] on filedocumented in this encounter Care Teams Tattoo Identifier Relationship Specialty Start Date End Date Kraig Ching MD [address] [facility] [address] [place] [address] PCP - General 07/10/16 Gautam Cope MD [address] [facility] [address] [place] [address] Medical Oncologist/Director Water And Waste Services Medical Oncology 08/18/18 Tramaine Roe MD [address] [facility] [address] [place] [address] Referring Physician Urology 08/18/18 Sukhwinder Uribe MD [address] [facility] [address] [place] [address] Consulting Physician Urology 08/18/18 Shay Guillermo MD [address] [facility] [address] [place] [address] Referring Physician Urology 08/18/18 Marsha Landis, RN Registered Nurse 11/17/18 documented as of this encounter
--- OUTSIDE RECORDS SUMMARY | 2024-03-31 11:24 | XMS_ITS | Encounter Summary ---
Author Organization [facility] [employer] [facility] Address [address] [place] [address] Phone Care Team Providers Care Custom Shop Worker Name Role Phone Kraig Ching MD Primary Care Provider [phone] Gautam Cope MD Unavailable Tramaine Roe MD Unavailable [phone] Sukhwinder Uribe MD Unavailable [phone] Shay Guillermo MD Unavailable [phone] Marsha Landis RN Unavailable Unavailab le Reason for Visit * Consultation (Routine) - Authorized Specialty Diagnoses / Procedures Referred By Saleem narvaez Referred To Contact Oncology Diagnoses Prostate cancer (HCC) Tramaine Roe MD [address] [facility] [address] [place] [address] Phone: tel: fax: Gautam Cope MD [address] [facility], [address] [place] [address] Phone: tel: fax: Referral ID Status Reason Start Date Expiration Date Visits Requested Visits Authorized [id number] Authorized Specialty Services Required 08/15/2018 04/11/2024 99 99 Encounter Details Date Type Department Care Team (Late st Contact Info) Description 10/19/2023 11:15 AM CDT Office Visit [facility] Oncology [address] [facility] 7th [place] [address] [place] [address] Gautam Cope MD [address] [facility] [address] [place] [address] Prostate cancer (HCC) (Primary Dx) Social History [...] file 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 He was hospitalized at [facility] last month for bacteremia. He presented with [...] and treated with a radical prostatectomy for [place] 7 disease. He received adjuvant radiation therapy [...] Adult Nurse Practitioner Division of Medical Oncology [facility] [employer] Cosigned by Gautam [...] Chronic Care Management No change(03/23 1:47 PM INSURANCE 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) No Ingrid Oden, RN Note: Problem: [...] ?0-6.20 ? 80-150 years ?Male ?0-6.20 The [employer] PSA Total assay procedure was used. Results from different manufacturers or methods may not be comparable. Serial testing should be performed using the same method. Current interpretive data last revised 21. Blood 01/11/2024 11:1 0 AM CDT 01/11/2024 11:21 AM CDT us Gautam Cope MD LAB BLOOD ORDERABLES Final Resul t [facility] [place] [address] * (ABNORMAL) Comprehensive metabolic panel (01/11/2024 11:10 AM CDT) Sodium 141 135 - 145 mmol/L Potassium, pl 4.7 3.3 - 4.9 mmol/L [facility] Chloride 103 97 - 110 mmol/L [facility] CO2 31 22 - 32 mmol/L [facility] Anion gap 7 2 - 15 mmol/L [facility] BUN 39(H) 6 - 25 mg/dL [facility] Creatinine 1.93(H) 0.80 - 1.30 mg/dL [facility] Glucose 152 70 - 199 mg/dL [facility] Comment: [...] 2022. Calcium 9.1 8.5 - 10.3 mg/dL [facility] Bilirubin, total 0.5 0.1 - 1.2 mg/dL [facility] Protein, pl 6.7 6.5 - 8.5 g/dL [facility] Albumin 3.6 3.5 - 5.0 g/dL [facility] Alk phos 140(H) 40 - 130 Units/L [facility] ALT 9 7 - 55 Units/L [facility] AST 14 10 - 50 Units/L [facility] Blood 01/11/2024 11:1 0 AM CDT 01/11/2024 11:21 AM CDT us Gautam Cope MD LAB BLOOD ORDERABLES Final Resul t [facility] [place] [address] * (ABNORMAL) CBC with auto differential (01/11/2024 11:10 AM CDT) WBC 14.0(H) 3.8 - 9.9 K/cumm Comment:Testing performed by : [facility], [address] [place] [address] Hgb 12.9(L) 13.0 - 17.5 g/dL [facility] Comment:Testing performed by : [facility], [address] [place] [address] Hct 40.7 38.9 - 50.3 % [facility] Comment:Testing performed by : [facility], [address] [place] [address] Plt 381 150 - 400 K/cumm [facility] Comment:Testing performed by : [facility], [address] [place] [address] MPV 7.6 6.8 - 10.4 fL [facility] Comment:Testing performed by : [facility], [address] [place] [address] RBC 4.67 4.30 - 5.80 M/cumm [facility] Comment:Testing performed by : [facility], [address] [place] [address] MCV 87.2 81.3 - 96.4 fL [facility] Comment:Testing performed by : [facility], [address] [place] [address] MCH 27.7 27.1 - 33.3 pg [facility] Comment:Testing performed by : [facility], [address] [place], [place] [id number] MCHC 31.8(L) 32.3 - 35.7 g/dL [facility] Comment:Testing performed by : [facility], [address] [place], [place] [id number] RDW CV 15.0(H) 11.1 - 14.9 % [facility] Comment:Testing performed by : [facility], [address] [place], [place] [id number] NRBC abs 0.00 0.00 - 0.01 K/cumm [facility] Comment:Testing performed by : [facility], [address] [place], [place] [id number] Blood 01/11/2024 11:1 0 AM CDT 01/11/2024 11:13 AM CDT Gautam Cope MD LAB BLOOD ORDERABLES Final Resul t Performing Organization Address City/[facility] Co de Phone Number [facility] [place] [place] [address] * Lactate dehydrogenase (LD) (01/11/2024 11:10 AM CDT) Lactate dehydrogenase (LDH) 191 100 - 250 Units/L Blood 01/11/2024 11:1 0 AM CDT 01/11/2024 11:21 AM CDT Gautam Cope MD LAB BLOOD ORDERABLES Final Resul t Performing Organization Address City/[facility] Co de Phone Number [facility] [place] [address] * (ABNORMAL) Hemoglobin A1c (10/19/2023 11:05 AM CDT) Hgb A1C 8.0(H) 4.0 - 5.6 % Estimated Average Glucose 183 mg/dL [facility] Comment: The ADA recommends reporting an estimated [...] MD LAB BLOOD ORDERABLES Final Resul t [facility] [place] [address] documented in this encounter Visit Diagnoses Diagnosis Prostate cancer (HCC)- Primary Malignant neoplasm of prostate documented in this encounter Orders Appointment Requests Count Last Ordered Date Fi rst Ordered Date ONCBCN CLINIC APPOINTMENT REQUEST 2 024 10/19/2023 ONCBCN INJECTION APPOINTMENT REQUEST 1 04/2023 ONCBCN LAB APPOINTMENT 1 01/11/2024 documented in this encounter Care Teams Custom Shop Worker Relationship Specialty Start Date End Date Kraig Ching MD [address] [place] [address] PCP - General 07/10/16 Gautam Cope MD [address] [place] [address] Medical Oncologist/Network Engineer Administrator Medical Oncology 08/18/18 Tramaine Roe MD [address] [place] [address] Referring Physician Urology 08/18/18 Sukhwinder Uribe MD [address] [place] [address] Consulting Physician Urology 08/18/18 Shay Guillermo MD [address] [facility] [address] [place] [address] Referring Physician Urology 08/18/18 Marsha Landis, RN Registered Nurse 11/17/18 documented as of this encounter
--- OUTSIDE RECORDS SUMMARY | 2024-03-31 11:24 | XMS_ITS | Encounter Summary ---
Author Organization [facility] Healthcare Address [address] [place] [address] Care Team Providers Care Clinical Dental Technician Name Role Phone Kraig Ching MD Primary Care Provider [phone] Gautam Cope MD Unavailable Tramaine Roe MD Unavailable [phone] Sukhwinder Uribe MD Unavailable [phone] Shay Guillermo MD Unavailable [phone] Marsha Landis RN Unavailable Unavailab le Reason for Referral * MRI/CAT/PET Scan (Routine) - Closed Specialty Diagnoses / Procedures Referred By Saleem narvaez Referred To Contact Radiology Diagnoses Prostate cancer (HCC) Procedures CT chest without contrast Gautam Cope MD [address] [address] Phone: tel: fax: [address] [address] Referral ID Status Reason Start Date Expiration Date Visits Re quested Visits Authorized [id number] Closed 02/01/2023 03/02/2024 1 1 GENCY MANAGEMENT PROGRAM SPECIALIST Reason for Visit * MRI/CAT/PET Scan (Routine) - Closed Specialty Diagnoses / Procedures Referred By Saleem narvaez Referred To Contact Radiology Diagnoses Prostate cancer (HCC) Procedures CT chest without contrast Gautam Cope MD [id number] [place] [address] Phone: tel: fax: [facility] [address] [facility] [place] [address] Referral ID Status Reason Start Date Expiration Date Visits Re quested Visits Authorized [id number] Closed 02/01/2023 03/02/2024 1 1 Encounter Details Date Type Department Care Team (Latest Contact Info) Description 06/15/2023 11:43 AM EMERGENCY MANAGEMENT PROGRAM SPECIALIST - 06/15/2023 11:59 PM EMERGENCY MANAGEMENT PROGRAM SPECIALIST Hospital Encounter [facility] [address] [place] [address] Gautam Cope MD [address] [facility] [address] [place] [address] Prostate cancer (HCC) Discharge Disposition: [...] on file Legal Sex Male 4:46 PM EMERGENCY MANAGEMENT PROGRAM SPECIALIST Gender Identity Not on file Sexual [...] Chronic Care Management No change(03/23 1:47 PM EMERGENCY MANAGEMENT PROGRAM SPECIALIST) No Ingrid Oden, RN Note: Problem: [...] Read Routine (OP Routine) 06/15/2023 12:09 PM EMERGENCY MANAGEMENT PROGRAM SPECIALIST Prostate cancer (HCC) documented in this encounter Results * CT chest without contrast (06/15/2023 12:09 PM EMERGENCY MANAGEMENT PROGRAM SPECIALIST) Anatomical Region Laterality Modality Body N/A Computed Tomogra phy 06/15/2023 12:2 5 PM EMERGENCY MANAGEMENT PROGRAM SPECIALIST Impressions 06/15/2023 12:25 PM EMERGENCY MANAGEMENT PROGRAM SPECIALIST Stable areas of groundglass opacity, likely benign. Calcification of the aortic valve and coronary arteries. Electronically signed by: Masood Galdamez M.D. Narrative 06/15/2023 12:25 PM EMERGENCY MANAGEMENT PROGRAM SPECIALIST EXAMINATION: Computed tomography of the chest without [...] prostate documented in this encounter Care Teams Clinical Dental Technician Relationship Specialty Start Date End Date Kraig Ching MD [address] [place] [address] PCP - General 07/10/16 Gautam Cope MD [address] [place] [address] Medical Oncologist/Electroplater Helper Medical Oncology 08/18/18 Tramaine Roe MD [address] [place] [address] Referring Physician Urology 08/18/18 Sukhwinder Uribe MD [address] [place] [address] Consulting Physician Urology 08/18/18 Shay Guillermo MD [address] [place] [address] Referring Physician Urology 08/18/18 Marsha Landis, RN Registered Nurse 11/17/18 documented as of this encounter
--- OUTSIDE RECORDS SUMMARY | 2024-03-31 11:24 | XMS_ITS | Encounter Summary ---
Author Organization [facility] Healthcare Address [address] [place] [address] Care Team Providers Care Cad Operator Name Role Phone Kraig Ching MD Primary Care Provider Gautam Cope MD Unavailable Tramaine Roe MD Unavailable [phone] Sukhwinder Uribe MD Unavailable Shay Guillermo MD Unavailable [phone] Marsha Landis RN Unavailable Unavailab le Encounter Details Date Type Department Care Team (Late st Contact Info) Description 10/20/2023 Orders Only [facility] [address] [facility] [address] [place] [address] Kraig Ching MD [address] [facility] [address] [place] [address] Social History Tobacco Use Types [...] file Legal Sex Male 4:46 PM RUBBER INSULATOR Gender Identity Not on file Sexual Orientation [...] Care Management No change(03/23 1:47 PM RUBBER INSULATOR) No Ingrid Oden RN Note: Problem: Chronic Pain Goals: 1. Minimize further functional decline 2. Maximize quality of life 3. Control pain Strategies: - Activity/exercise program recommendation - Conservative stepwise pain medicine strategy with multi-disciplinary approach - Recommend healthy lifestyle strategies and compensatory methods as needed documented as of this encounter Visit Diagnoses Not on filedocumented in this encounter Care Teams Cad Operator Relationship Specialty Start Date End Date Kraig Ching MD [address] [facility] [address] [place] [address] PCP - General 07/10/16 Gautam Cope MD [address] [facility] [address] [place] [address] Medical Oncologist/Wrecker Driver Medical Oncology 08/18/18 Tramaine Roe MD [address] [facility] [address] [place] [address] Referring Physician Urology 08/18/18 Sukhwinder Uribe MD [address] [facility] [address] [place] [address] Consulting Physician Urology 08/18/18 Shay Guillermo MD [address] [facility] [address] [place] [address] Referring Physician Urology 08/18/18 Marsha Landis, RN Registered Nurse 11/17/18 documented as of this encounter
--- OUTSIDE RECORDS SUMMARY | 2024-03-31 11:24 | XMS_ITS | Encounter Summary ---
Author Organization [facility] Address [address] [place] [address] Phone Care Team Providers Care Assistant Women'S Tennis Coach Name Role Phone Kraig Ching MD Primary Care Provider [phone] Gautam Cope MD Unavailable Tramaine Roe MD Unavailable [phone] Sukhwinder Uribe MD Unavailable [phone] Shay Guillermo MD Unavailable [phone] Marsha Landis RN Unavailable Unavailab le Reason for Referral * Diagnostic Imaging (Routine) - Closed Specialty Diagnoses / Procedures Referred By Contac t Referred To Contact Diagnoses Glaucoma suspect of both eyes Procedures OCT, Optic Nerve - OU - Both Eyes Higinio Connolly MD [address] [facility] [employer] [place] [address] Phone: tel: fax: [facility] (All Locations) Referral ID Status Reason Start Date Expiration Date Visits Re quested Visits Authorized [id number] Closed 06/25/2023 07/24/2024 1 1 * Diagnostic Imaging (Routine) - Closed Specialty Diagnoses / Procedures Referred By Contulices t Referred To Contact Diagnoses Glaucoma suspect of both eyes Procedures Kurtz Visual Field - OU - Both Eyes Higinio Connolly MD [address] [facility] [address] [place] [address] Phone: tel: fax: [facility] (All Locations) Referral ID Status Reason Start Date Expiration Date Visits Re quested Visits Authorized [id number] Closed 06/25/2023 07/24/2024 1 1 Encounter Details Date Type Department Care Team (Late st Contact Info) Description 06/25/2023 10:00 AM CDT Office Visit [facility] Ophthalmology [address] [place] [address] Higinio Connolly MD [address] [facility] [address] [place] [address] Pseudophakia of both eyes (Primary Dx); Glaucoma [...] on file Legal Sex Male 4:46 PM APPEALS ASSISTANT Gender Identity Not on file Sexual [...] Chronic Care Management No change(03/23 1:47 PM APPEALS ASSISTANT) No Ingrid Oden RN Note: Problem: [...] arcuate/altitudinal defect compared to previous studies at steam and gas turbine assembler's office us Higinio Connolly MD OPH VISUAL [...] current use of insulin ([facility]) Pseudophakia of both eyes Lens replaced [...] lens, no Posterior capsular opacification Care Teams Assistant Women'S Tennis Coach Relationship Specialty Start Date End Date Kraig Ching MD [address] [facility] [address] [place] [address] PCP - General 07/10/16 Gautam Cope MD [address] [facility] [address] [place] [address] Medical Oncologist/Engine Lathe Tender Medical Oncology 08/18/18 Tramaine Roe MD [address] [facility] [address] [place] [address] Referring Physician Urology 08/18/18 Sukhwinder Uribe MD [address] [facility] [address] [place] [address] Consulting Physician Urology 08/18/18 Shay Guillermo MD [address] [facility] [address] [place] [address] Referring Physician Urology 08/18/18 Marsha Landis, RN Registered Nurse 11/17/18 documented as of this encounter
--- OUTSIDE RECORDS SUMMARY | 2024-03-31 11:24 | XMS_ITS | Encounter Summary ---
Author Organization [facility] Healthcare Address [address] [place] [address] Care Team Providers Care Operative Supervisor Name Role Phone Kraig Ching MD Primary Care Provider Gautam Cope MD Unavailable Tramaine Roe MD Unavailable [phone] Sukhwinder Uribe MD Unavailable [phone] hSay Guillermo MD Unavailable [phone] Marsha Landis RN Unavailable Unavailab le Encounter Details Date Type Department Care Team (Late st Contact Info) Description 01/10/2024 12:00 PM CDT Office Visit [facility] [address] [facility] [address] [place] [address] Kraig Ching MD [address] [facility] [address] [place] [address] Primary hypertension (Primary Dx); Type [...] on file Legal Sex Male 4:46 PM COMPLIANCE AND CONTROL ANALYST Gender Identity Not on file Sexual [...] Chronic Care Management No change(03/23 1:47 PM COMPLIANCE AND CONTROL ANALYST) No Ingrid Oden, SHEA Note: Problem: [...] documented as of this encounter Care Teams Operative Supervisor Relationship Specialty Start Date End Date Kraig Ching MD [address] [place] [address] PCP - General 07/10/16 Gautam Cope MD [address] [place] [address] Medical Oncologist/Semiconductor Wafers Tester Medical Oncology 08/18/18 Tramaine Roe MD [address] [place] [address] Referring Physician Urology 08/18/18 Sukhwinder Uribe MD [address] [place] [address] Consulting Physician Urology 08/18/18 Shay Guillermo MD [address] [facility] [address] [place] [address] Referring Physician Urology 08/18/18 Marsha Landis, RN Registered Nurse 11/17/18 documented as of this encounter
--- OUTSIDE RECORDS SUMMARY | 2024-03-31 11:24 | XMS_ITS | Encounter Summary ---
Author Organization [facility] Healthcare Address [address] [place] [address] Care Team Providers Care Mining Analyst Name Role Phone Kraig Ching MD Primary Care Provider [phone] Gautam Cope MD Unavailable Tramaine Roe MD Unavailable [phone] Sukhwinder Uribe MD Unavailable [phone] Shay Guillermo MD Unavailable Marsha Landis RN Unavailable Unavailab le Encounter Details Date Type Department Care Team (Late st Contact Info) Description 11/12/2023 Orders Only [facility] [address] [facility] [address] [place] [address] Kraig Ching MD [address] [facility] [address] [place] [address] Social History Tobacco Use Types [...] file Legal Sex Male 4:46 PM LPN OR MEDICAL ASSISTANT Gender Identity Not on file [...] Care Management No change(03/23 1:47 PM LPN OR MEDICAL ASSISTANT) No Ingrid Oden RN Note: Problem: [...] documented as of this encounter Care Teams Mining Analyst Relationship Specialty Start Date End Date Kraig Ching MD [address] [facility] [address] [place] [address] PCP - General 07/10/16 Gautam Cope MD [address] [facility] [address] [place] [address] Medical Oncologist/Environmental Compliance Engineer Medical Oncology 08/18/18 Tramaine Roe MD [address] [facility] [address] [place] [address] Referring Physician Urology 08/18/18 Sukhwinder Uribe MD [address] [facility] [address] [place] [address] Consulting Physician Urology 08/18/18 Shay Guillermo MD [address] [facility] [address] [place] [address] Referring Physician Urology 08/18/18 Marsha Landis, RN Registered Nurse 11/17/18 documented as of this encounter
--- OUTSIDE RECORDS SUMMARY | 2024-03-31 11:24 | XMS_ITS | Encounter Summary ---
Author Organization [facility] Healthcare Address [address] [place] [address] Care Team Providers Care Line Maintenance Technician Name Role Phone Kraig Ching MD Primary Care Provider [phone] Gautam Cope MD Unavailable Tramaine Roe MD Unavailable Sukhwinder Uribe MD Unavailable [phone] Shay Guillermo MD Unavailable [phone] Marsha Landis RN Unavailable Unavailab le Encounter Details Date Type Department Care Team (Latest Contact Info) Description 07/27/2023 9:08 AM CDT - 07/27/2023 11:59 PM CDT Hospital Encounter [facility] [address] [place] [address] Prostate cancer (HCC) Discharge Disposition: Discharge to [...] on file Legal Sex Male 4:46 PM PREFITTER DOORS Gender Identity Not on file Sexual Orientation [...] 30-59 ml/min ([facility]) Take 1 tablet (25 mg total) by [...] of insulin ([facility]) TAKE 1 TABLET BY MOUTH DAILY 30 [...] Chronic Care Management No change(03/23 1:47 PM PREFITTER DOORS) No Ingrid Oden, SHEA Note: Problem: Chronic [...] % Estimated Average Glucose 180 mg/dL [facility] Comment: The ADA recommends reporting an estimated [...] Resul t Performing Organization Address [facility] Co de Phone Number [facility] Department [place] [address] * (ABNORMAL) eGFR (07/27/2023 10:22 AM CDT) [...] was last reviewed 2021. Testing performed by: [facility], [address] [place] [phone] Blood 07/27/2023 10:2 2 AM CDT 07/27/2023 10:34 AM CDT us Gautam Cope MD LAB BLOOD ORDERABLES Final Resul t Performing Organization Address [facility] Co de Phone Number [facility] Department [place] [address] * (ABNORMAL) Differential, auto (07/27/2023 10:22 AM CDT) Neutrophil abs 10.4(H) 1.5 - 6.6 K/cumm Comment:Testing performed by : [facility], [address] [place] [phone] Lymphocyte abs 1.0(L) 1.2 - 3.3 K/cumm [facility] Comment:Testing performed by : [facility], [address] [place] [phone] Monocyte abs 0.9 0.2 - 1.2 K/cumm [facility] Comment:Testing performed by : [facility], [address] [place] [phone] Eosinophil abs 0.1 0.0 - 0.5 K/cumm [facility] Comment:Testing performed by : [facility], [address] [place] [phone] Basophil abs 0.1 0.0 - 0.2 K/cumm [facility] Comment:Testing performed by : [facility], [address] [place] [phone] Neutrophil pct 84.1 % [facility] Comment: Interpretive Data Percent cell count reference ranges are not reported, since discordance with absolute values may lead to misinterpretation of CBC data. Current Interpretive Data was last revised on 2017. Testing performed by: [facility], [address] [place] [phone] Lymphocyte pct 7.7 % [facility] Comment: Interpretive Data Percent cell count reference ranges are not reported, since discordance with absolute values may lead to misinterpretation of CBC data. Current Interpretive Data was last revised on 2017. Testing performed by: [facility], [address] [place] [phone] Monocyte pct 6.9 % [facility] Comment:Testing performed by : [facility], [address] [place] [phone] Eosinophil pct 0.7 % [facility] Comment:Testing performed by : [facility], [address] [place] [phone] Basophil pct 0.6 % [facility] Comment:Testing performed by : [facility], [address] [place] [phone] Blood 07/27/2023 10:2 2 AM CDT 07/27/2023 10:34 AM CDT us Gautam Cope MD LAB BLOOD ORDERABLES Final Resul t Performing Organization Address [facility] Co de Phone Number [facility] [place] [address] * Lactate dehydrogenase (LD) (07/27/2023 10:22 AM CDT) Pathologist [facility] Lactate dehydrogenase (LDH) 149 100 - 250 Units/L Comment:Testing performed by : [facility], [address] [place] [phone] Blood 07/27/2023 10:2 2 AM CDT 07/27/2023 10:34 AM CDT us Gautam Cope MD LAB BLOOD ORDERABLES Final Resul t Performing Organization Address [facility] de Phone Number [facility] [place] [address] * (ABNORMAL) CBC with auto differential (07/27/2023 10:22 AM CDT) Pathologist [facility] WBC 12.4(H) 3.8 - 9.8 K/cumm Comment:Testing performed by : [facility], [address] [place] [phone] Hgb 12.6(L) 13.8 - 17.2 g/dL [facility] Comment:Testing performed by : [facility], [address] [place] [phone] Hct 39.9(L) 40.7 - 50.3 % [facility] Comment:Testing performed by : [facility], [address] [place] [phone] Plt 347 140 - 440 K/cumm [facility] Comment:Testing performed by : [facility], [address] [place] [phone] MPV 7.3 6.8 - 10.4 fL [facility] Comment:Testing performed by : [facility], [address] [place], [place] [phone] RBC 4.48(L) 4.50 - 5.70 M/cumm [facility] Comment:Testing performed by : [facility], [address] [place] [phone] MCV 88.9 80.0 - 97.6 fL [facility] Comment:Testing performed by : [facility], [address] [place] [phone] MCH 28.2 26.7 - 33.7 pg [facility] Comment:Testing performed by : [facility], [address] [place] [phone] MCHC 31.7(L) 32.7 - 35.5 g/dL [facility] Comment:Testing performed by : [facility], [address] [place] [phone] RDW CV 14.3 11.8 - 14.6 % [facility] Comment:Testing performed by : [facility], [address] [place] [phone] NRBC abs 0.00 0.00 - 0.01 K/cumm [facility] Comment:Testing performed by : [facility], [address] [place] [phone] Blood 07/27/2023 10:2 2 AM CDT 07/27/2023 10:34 AM CDT us Gautam Cope MD LAB BLOOD ORDERABLES Final Resul t [facility] Department [place] [address] * (ABNORMAL) Comprehensive metabolic panel (07/27/2023 10:22 AM CDT) Sodium 142 135 - 145 mmol/L Comment:Testing performed by : [facility], [address] [place] [phone] Potassium, pl 4.2 3.3 - 4.9 mmol/L [facility] Comment:Testing performed by : [facility], [address] [place] [phone] Chloride 104 97 - 110 mmol/L [facility] Comment:Testing performed by : [facility], [address] [place] [phone] CO2 28 22 - 32 mmol/L [facility] Comment:Testing performed by : [facility], [address] [place] [phone] Anion gap 10 2 - 15 mmol/L [facility] Comment:Testing performed by : [facility], [address] [place] [phone] BUN 40(H) 6 - 25 mg/dL [facility] Comment:Testing performed by : [facility], [address] [place] [phone] Creatinine 2.21(H) 0.80 - 1.30 mg/dL [facility] Comment:Testing performed by : [facility], [address] [place] [phone] Glucose 154 70 - 199 mg/dL [facility] [...] was last revised 2022. Testing performed by: [facility], [address] [place] [phone] Calcium 9.1 8.5 - 10.3 mg/dL [facility] Comment:Testing performed by : [facility], [address] [place] [phone] Bilirubin, total 0.4 0.1 - 1.2 mg/dL [facility] Comment:Testing performed by : [facility], [address] [place] [phone] Protein, pl 6.5 6.5 - 8.5 g/dL [facility] Comment:Testing performed by : [facility], [facility] [phone] Albumin 3.9 3.5 - 5.0 g/dL [facility] Comment:Testing performed by : [facility], [address] [place] [phone] Alk phos 129 40 - 130 Units/L [facility] Comment:Testing performed by : [facility], [address] [place] [phone] ALT 9 7 - 55 Units/L [facility] Comment:Testing performed by : [facility], [address] [place] [phone] AST 11 10 - 50 Units/L [facility] Comment:Testing performed by : [facility], [address] [place] [phone] Blood 07/27/2023 10:2 2 AM CDT 07/27/2023 10:34 AM CDT us Gautam Cope MD LAB BLOOD ORDERABLES Final Resul t [facility] Department [place] [address] * PSA diagnostic (07/27/2023 10:22 AM CDT) [...] ORDERABLES Final Resul t Performing Organization Address City/State/[facility] Co de Phone Number [facility] Department [place] [address] documented in this encounter Visit Diagnoses Diagnosis Prostate cancer (HCC) Malignant neoplasm of prostate documented in this encounter Care Teams Line Maintenance Technician Relationship Specialty Start Date End Date Kraig Ching MD [address] [place] [address] PCP - General 07/10/16 Gautam Cope MD [address] [facility] [address] [place] [address] Medical Oncologist/Computer Training Specialist Medical Oncology 08/18/18 Tramaine Roe MD [address] [place] [address] Referring Physician Urology 08/18/18 Sukhwinder Uribe MD [address] [place] [address] Consulting Physician Urology 08/18/18 Shay Guillermo MD [address] [facility] [address] [place] [address] Referring Physician Urology 08/18/18 Marsha Landis, RN Registered Nurse 11/17/18 documented as of this encounter
--- OUTSIDE RECORDS SUMMARY | 2024-03-31 11:24 | XMS_ITS | Encounter Summary ---
Author Organization [facility] Address [address] [place] [address] Phone Care Team Providers Care Pressroom Supervisor Name Role Phone Kraig Ching MD Primary Care Provider [phone] Gautam Cope MD Unavailable Tramaine Roe MD Unavailable [phone] Sukhwinder Uribe MD Unavailable [phone] Shay Guillermo MD Unavailable [phone] Marsha Landis RN Unavailable Unavailab le Reason for Visit * Consultation (Routine) - Authorized Specialty Diagnoses / Procedures Referred By Saleem narvaez Referred To Contact Nephrology Diagnoses Prostate cancer (HCC) Lin Guerrero MD [address] [place] [address] Phone: tel: fax: Lin Guerrero MD [address] [place] [address] Phone: tel: fax: Referral ID Status Reason Start Date Expiration Date Visits Requested Visits Authorized [id number] Authorized Specialty Services Required 11/22/2023 12/21/2024 99 99 Encounter Details Date Type Department Care Team (Latest Contact Info) Description 12/01/2023 4:40 PM CDT Office Visit [facility] Nephrology [address] [facility] 5th [place] [address] [place] [phone] Lin Guerrero MD [address] [facility] [address] [place] [address] Hypertension, essential (Primary Dx); Anemia in stage [...] file Legal Sex Male 4:46 PM CALL CENTER REPRESENTATIVE Gender Identity Not on file Sexual [...] with micro, UPCR). Lin Guerrero MD, [employer] passenger car upholsterer apprentice documented in this encounter Plan of Treatment [...] Care Management No change(03/23 1:47 PM CALL CENTER REPRESENTATIVE) No Ingrid Oden, SHEA Note: Problem: [...] 12/01/2023 documented in this encounter Care Teams Pressroom Supervisor Relationship Specialty Start Date End Date Kraig Ching MD [address] [place] [address] PCP - General 07/10/16 Gautam Cope MD [address] [place] [address] Medical Oncologist/Cane Piler Medical Oncology 08/18/18 Tramaine Roe MD [address] [place] [address] Referring Physician Urology 08/18/18 Sukhwinder Uribe MD [address] [place] [address] Consulting Physician Urology 08/18/18 Shay Guillermo MD [address] [place] [address] Referring Physician Urology 08/18/18 Marsha Landis, RN Registered Nurse 11/17/18 documented as of this encounter
--- OUTSIDE RECORDS SUMMARY | 2024-03-31 11:24 | XMS_ITS | Encounter Summary ---
Author Organization [facility] Address [address] [place] [address] Phone Care Team Providers Care Vending Machine Coin Collector Name Role Phone Kraig Ching MD Primary Care Provider [phone] Gautam Cope MD Unavailable Tramaine Roe MD Unavailable [phone] Sukhwinder rUibe MD Unavailable Shay Guillermo MD Unavailable [phone] Marsha Landis RN Unavailable Unavailab le Encounter Details Date Type Department Care Team (Late st Contact Info) Description 07/12/2023 Orders Only [facility] Oncology [address] [place] [address] Gautam Cope MD [address] [facility] [address] [place], [place] [id number] Prostate cancer (HCC) (Primary Dx) Social History [...] on file Legal 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 [facility] Chronic Pain Care Plan Chronic Care Management No change(03/23 1:47 PM PACKAGE LINER) No Ingrid Oden, SHEA Note: Problem: Chronic [...] documented as of this encounter Care Teams Vending Machine Coin Collector Relationship Specialty Start Date End Date Kraig Ching MD [address] [facility] [address] [place] [address] PCP - General 07/10/16 Gautam Cope MD [address] [facility] [address] [place] [address] Medical Oncologist/Mastic Sprayer Medical Oncology 08/18/18 Tramaine Roe MD [id number] [place] [address] Referring Physician Urology 08/18/18 Sukhwinder Uribe MD [id number] [place] [address] Consulting Physician Urology 08/18/18 Shay Guillermo MD [address] [facility] [address] [place] [address] Referring Physician Urology 08/18/18 Marsha Landis, RN Registered Nurse 11/17/18 documented as of this encounter
--- OUTSIDE RECORDS SUMMARY | 2024-03-31 11:24 | XMS_ITS | Encounter Summary ---
Author Organization [facility] Healthcare Address [address] [place] [address] Care Team Providers Care Head Silverman Name Role Phone Kraig Ching MD Primary Care Provider [phone] Gautam Cope MD Unavailable Tramaine Roe MD Unavailable [phone] Sukhwinder Uribe MD Unavailable [phone] Shay Guillermo MD Unavailable [phone] Marsha Landis RN Unavailable Unavailab le Reason for Referral * Consultation (Routine) - Closed Specialty Diagnoses / Procedures Referred By Contulices t Referred To Contact Physical Therapy Diagnoses Unsteady gait Chronic low back pain, unspecified back pain laterality, unspecified whether sciatica present Kraig Ching MD [address] [facility] [address] [place] [address] Phone: tel: fax: Unknown Place of Service fax: Referral ID Status Reason Start Date Expiration Date V isits Requested Visits Authorized [id number] Closed Evaluate and Treat 08/19/2023 09/17/2024 24 [...] Description 08/19/2023 3:15 PM CDT Office Visit [facility] [address] [place] [address] Kraig Ching MD [address] [facility] [address] [place] [address] Primary hypertension (Primary Dx); Hyperlipidemia associated with [...] on file Legal Sex Male 4:46 PM 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 Sepsis with acute hypoxic respiratory failure, due to unspecified organism, unspecified whether septic shock present ([facility]) (A41.9, R65.20, J96.01) Assessment & Plan: Hospitalization reviewed. Symptoms improved with antibiotics and supportive care. Orders: - CBC with auto differential; Future Chronic heart failure with preserved ejection fraction ([facility]) ([facility]) (I50.32) Assessment & Plan: Reviewed low sodium diet. GABRIELA (acute kidney injury) ([facility]) (N17.9) Assessment & Plan: Creatinine [...] Chronic Care Management No change(03/23 1:47 PM PRACTICE ARCHITECT) No Ingrid Oden, SHEA Note: Problem: Chronic [...] MD LAB BLOOD ORDERABLES Final Re sult [facility] [place] [address] * (ABNORMAL) Differential, auto (08/19/2023 3:15 PM CDT) Neutrophil abs 11.5(H) 1.5 - 6.5 K/cumm Imm gran abs 0.1 0.0 - 0.1 K/cumm [facility] Lymphocyte abs 1.2 0.8 - 3.3 K/cumm [facility] Monocyte abs 0.8 0.2 - 0.8 K/cumm [facility] Eosinophil abs 0.1 0.0 - 0.5 K/cumm [facility] Basophil abs 0.0 0.0 - 0.1 K/cumm [facility] Neutrophil pct 84.4 % [facility] Comment: Interpretive Data Percent cell count reference ranges are not reported, since discordance with absolute values may lead to misinterpretation of CBC data. Current Interpretive Data was last revised on 2017. Imm gran pct 0.9 % [facility] Comment: Interpretive Data Percent cell count reference ranges are not reported, since discordance with absolute values may lead to misinterpretation of CBC data. Current Interpretive Data was last revised on 2017. Lymphocyte pct 8.5 % [facility] Comment: Interpretive Data Percent cell count reference ranges are not reported, since discordance with absolute values may lead to misinterpretation of CBC data. Current Interpretive Data was last revised on 2017. Monocyte pct 5.5 % [facility] Comment: Interpretive Data Percent cell count reference ranges are not reported, since discordance with absolute values may lead to misinterpretation of CBC data. Current Interpretive Data was last revised on 2017. Eosinophil pct 0.4 % [facility] Comment: Interpretive Data Percent cell count reference ranges are not reported, since discordance with absolute values may lead to misinterpretation of CBC data. Current Interpretive Data was last revised on 2017. Basophil pct 0.3 % [facility] Comment: Interpretive Data Percent cell count reference ranges are not reported, since discordance with absolute values may lead to misinterpretation of CBC data. Current Interpretive Data was last revised on 2017. Blood 08/19/2023 3:15 PM CDT 08/19/2023 4:45 PM CDT us Kraig Ching MD LAB BLOOD ORDERABLES Final Re sult [facility] One [facility] Department [place] [address] * (ABNORMAL) CBC with auto differential (08/19/2023 3:15 PM CDT) WBC 13.9(H) 3.8 - 9.9 K/cumm Hgb 11.3(L) 13.0 - 17.5 g/dL [facility] Hct 34.9(L) 38.9 - 50.3 % [facility] Plt 372 150 - 400 K/cumm [facility] MPV 9.8 9.1 - 12.3 fL [facility] RBC 3.91(L) 4.30 - 5.80 M/cumm [facility] MCV 89.3 81.3 - 96.4 fL [facility] MCH 28.9 27.1 - 33.3 pg [facility] MCHC 32.4 32.3 - 35.7 g/dL [facility] RDW CV 13.7 11.1 - 14.9 % [facility] RDW SD 44.2 35.7 - 48.1 fL [facility] NRBC abs 0.00 0.00 - 0.01 K/cumm [facility] Blood 08/19/2023 3:1 5 PM CDT 08/19/2023 4:45 PM CDT Kraig Ching MD LAB BLOOD ORDERABLES Final Re sult Performing Organization Address [facility] [place]/ZIP Co de Phone Number [facility] Department [place] [address] * (ABNORMAL) Basic metabolic panel (08/19/2023 3:15 PM CDT) Sodium 140 135 - 145 mmol/L Potassium, pl 5.2(H) 3.3 - 4.9 mmol/L [facility] Chloride 105 97 - 110 mmol/L [facility] CO2 28 22 - 32 mmol/L [facility] Anion gap 7 2 - 15 mmol/L [facility] BUN 45(H) 6 - 25 mg/dL [facility] Creatinine 2.23(H) 0.80 - 1.30 mg/dL [facility] Glucose 136 70 - 199 mg/dL [facility] Comment: Interpretive Data Fasting glucose >/= 126 [...] 2022. Calcium 9.1 8.5 - 10.3 mg/dL [facility] Blood 08/19/2023 3:15 PM CDT 08/19/2023 4:45 PM CDT Kraig Ching MD LAB BLOOD ORDERABLES Final Re sult Performing Organization Address [facility] [place] Co de Phone Number [facility] Department [place] [address] documented in this encounter Visit Diagnoses Diagnosis [...] present documented in this encounter Care Teams Head Silverman Relationship Specialty Start Date End Date Kraig Ching MD [address] [place] [address] PCP - General 07/10/16 Gautam Cope MD [address] [place] [address] Medical Oncologist/Industrial Coffee Grinder Medical Oncology 08/18/18 Tramaine Roe MD [address] [place] [address] Referring Physician Urology 08/18/18 Sukhwinder Uribe MD [address] [place] [address] Consulting Physician Urology 08/18/18 Shay Guillermo MD [address] [place] [address] Referring Physician Urology 08/18/18 Marsha Landis, RN Registered Nurse 11/17/18 documented as of this encounter
--- OUTSIDE RECORDS SUMMARY | 2024-03-31 11:24 | XMS_ITS | Encounter Summary ---
Author Organization [facility] Address [address] [place] [address] Phone Care Team Providers Care Apple Turner Name Role Phone Kraig Ching MD Primary Care Provider [phone] Gautam Cope MD Unavailable Tramaine Roe MD Unavailable [phone] Sukhwinder Uribe MD Unavailable Shay Guillermo MD Unavailable [phone] Marsha Landis RN Unavailable Unavailab le Encounter Details Date Type Department Care Team (Late st Contact Info) Description 06/14/2023 Orders Only [facility] Oncology [address] [place] [address] Gautam Cope MD [address] 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 [facility] Chronic Pain Care Plan Chronic Care Management No change(03/23 1:47 PM SOIL SURVEYOR) No Ingrid Oden RN Note: Problem: Chronic Pain Goals: 1. Minimize further functional decline 2. Maximize quality of life 3. Control pain Strategies: - Activity/exercise program recommendation - Conservative stepwise pain medicine strategy with multi-disciplinary approach - Recommend healthy lifestyle strategies and compensatory methods as needed documented as of this encounter Visit Diagnoses Not on filedocumented in this encounter Care Teams Apple Turner Relationship Specialty Start Date End Date Kraig Ching MD [address] [facility] [address] [place] [address] PCP - General 07/10/16 Gautam Cope MD [address] [facility] [address] [place] [address] Medical Oncologist/Handle And Vent Machine Operator Medical Oncology 08/18/18 Tramaine Roe MD [address] [facility] [address] [place] [address] Referring Physician Urology 08/18/18 Sukhwinder Uribe MD [address] [facility] [address] [place] [address] Consulting Physician Urology 08/18/18 Shay Guillermo MD [address] [facility] [address] [place] [address] Referring Physician Urology 08/18/18 Marsha Landis, RN Registered Nurse 11/17/18 documented as of this encounter
--- OUTSIDE RECORDS SUMMARY | 2024-03-31 11:24 | XMS_ITS | Encounter Summary ---
Author Organization [facility] Address [address] [place] [address] Phone Care Team Providers Care Lumber Stacker Operator Name Role Phone Kraig Ching MD Primary Care Provider [phone] Gautam Cope MD Unavailable Tramaine Roe MD Unavailable [phone] Sukhwinder Uribe MD Unavailable [phone] Shay Guillermo MD Unavailable [phone] Marsha Landis RN Unavailable Unavailab le Reason for Visit * Reason Onset Date Comments Appointments>01/11/24>ACB 01/07/2024 Encounter Details Date Type Department Care Team (Late st Contact Info) Description 01/07/2024 Telephone [facility] Oncology [facility] 7th [place] [address] [place] [address] Ladi Bunch, SHEA Appointments>01/11/24>A CB [...] on file 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 Wei today, 01/07/24, about his upcoming appointments on 01/11/24, in the new [facility], 5th floor, with labs at 11:00, ROV [...] monitor diabetes and kidney status, etc. [facility] Chronic Pain Care Plan Chronic Care Management No change(03/23 1:47 PM TOWEL SEWER) No Ingrid Oden RN Note: Problem: Chronic Pain Goals: 1. Minimize further functional decline 2. Maximize quality of life 3. Control pain Strategies: - Activity/exercise program recommendation - Conservative stepwise pain medicine strategy with multi-disciplinary approach - Recommend healthy lifestyle strategies and compensatory methods as needed documented as of this encounter Visit Diagnoses Not on filedocumented in this encounter Care Teams Lumber Stacker Operator Relationship Specialty Start Date End Date Kraig Ching MD [address] [facility] [address] [place] [address] PCP - General 07/10/16 Gautam Cope MD [address] [facility] [address] [place] [address] Medical Oncologist/Medical Diagnostic Radiographer Medical Oncology 08/18/18 Tramaine Roe MD [id number] [place] [address] Referring Physician Urology 08/18/18 Sukhwinder Uribe MD [id number] [place] [address] Consulting Physician Urology 08/18/18 Shay Guillermo MD [id number] [place] [address] Referring Physician Urology 08/18/18 Marsha Landis, RN Registered Nurse 11/17/18 documented as of this encounter
--- OUTSIDE RECORDS SUMMARY | 2024-03-31 11:24 | XMS_ITS | Encounter Summary ---
Author Organization [facility] Address [address] [place] [address] Care Team Providers Care Kettle Operator Head Name Role Phone Kraig Ching MD Primary Care Provider [phone] Gautam Cope MD Unavailable Tramaine Roe MD Unavailable [phone] Sukhwinder Uribe MD Unavailable [phone] Shay Guillermo MD Unavailable [phone] Marsha Landis RN Unavailable Unavailab le Encounter Details Date Type Department Care Team (Late st Contact Info) Description 08/04/2023 Orders Only [facility] Health Information Management [address] [place] [address] Kraig Ching MD [address] [facility] [address] [place], [place] [id number] Social History Tobacco Use Types Packs/Day Years [...] on file 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 [facility] Chronic Pain Care Plan Chronic Care Management No change(03/23 1:47 PM SUBWAY OPERATOR) No Ingrid Oden, RN Note: Problem: [...] on filedocumented in this encounter Care Teams Kettle Operator Head Relationship Specialty Start Date End Date Kraig Ching MD [address] [place] [address] PCP - General 07/10/16 Gautam Cope MD [address] [place] [address] Medical Oncologist/Pattern Marker Medical Oncology 08/18/18 Tramaine Roe MD [address] [place] [address] Referring Physician Urology 08/18/18 Sukhwinder Uribe MD [address] [place] [address] Consulting Physician Urology 08/18/18 Shay Guillermo MD [address] [facility] [address] [place] [address] Referring Physician Urology 08/18/18 Marsha Landis, RN Registered Nurse 11/17/18 documented as of this encounter
--- OUTSIDE RECORDS SUMMARY | 2024-03-31 11:24 | XMS_ITS | Encounter Summary ---
Author Organization [facility] [employer] [facility] Address [address] [place] [address] Phone Care Team Providers Care Health And Safety Instructor Name Role Phone Kraig Ching MD Primary Care Provider [phone] Gautam Cope MD Unavailable Tramaine Roe MD Unavailable [phone] Sukhwinder Uribe MD Unavailable [phone] Shay Guillermo MD Unavailable [phone] Marsha Landis RN Unavailable Unavailab le Reason for Visit * Consultation (Routine) - Authorized Specialty Diagnoses / Procedures Referred By Saleem narvaez Referred To Contact Oncology Diagnoses Prostate cancer (HCC) Tramaine Roe MD [address] [facility] [address] [place] [address] Phone: tel: fax: Gautam Cope MD [address] [facility], [address] [place] [address] Phone: tel: fax: Referral ID Status Reason Start Date Expiration Date Visits Requested Visits Authorized [id number] Authorized Specialty Services Required 08/15/2018 04/11/2024 99 99 Encounter Details Date Type Department Care Team (Late st Contact Info) Description 07/27/2023 11:00 AM CDT Office Visit [facility] Oncology [address] [facility] 7th [place] [address] [place] [address] Gautam Cope MD [address] [facility] [address] [place] [address] Prostate cancer (HCC) (Primary Dx) Social History [...] file Legal Sex 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 Drew is an 82-year-old with metastatic prostate cancer. He was diagnosed in 1999 when he presented the PSA of 5.5, ultimately undergoing a radical prostatectomy performed by Dr. Guillermo. Hewas found to have [place] 4 + 3 disease with extracapsular extension [...] therapy 2 days a week through the [employer] system. He had a CT scan done [...] treated with a radical prostatectomy for [place] 7 disease. He did receive adjuvant radiation [...] - 07/27/2023 01:35 PM Gautam Cope M.D. commercial fisher GLORIA/axel documented in this encounter Plan of [...] Care Management No change(03/23 1:47 PM LICENSED MASS REAL ESTATE APPRAISER) No Ingrid Oden, SHEA Note: Problem: Chronic [...] [facility] Co de Phone Number [facility] Department [place] [address] * (ABNORMAL) Comprehensive metabolic panel (10/19/2023 11:05 AM CDT) Pathologist [facility] Sodium 140 135 - 145 mmol/L Comment:Testing performed by : [facility], [address] [facility] [phone] Potassium, pl 4.4 3.3 - 4.9 mmol/L MERLINE PERDOMO Comment:Testing performed by : [facility], [address] [facility] [address] Chloride 104 97 - 110 mmol/L CERNER BJ Comment:Testing performed by : [facility], [address] [place] [phone] CO2 29 22 - 32 mmol/L CERNER BJ Comment:Testing performed by : [facility], [address] [place] [phone] Anion gap 7 2 - 15 mmol/L CERNER BJ Comment:Testing performed by : [facility], [address] [place] [phone] BUN 35(H) 6 - 25 mg/dL CERNER BJ Comment:Testing performed by : [facility], [address] [place] [phone] Creatinine 2.14(H) 0.80 - 1.30 mg/dL CERNER BJ Comment:Testing performed by : [facility], [address] [place] [phone] Glucose 110 70 - 199 mg/dL CERNER [...] Testing performed by: [facility], [address] [place] [phone] Calcium 9.2 8.5 - 10.3 mg/dL CERNER BJ Comment:Testing performed by : [facility], [address] [place] [phone] Bilirubin, total 0.6 0.1 - 1.2 mg/dL CERNER BJ Comment:Testing performed by : [facility], [address] [place] [phone] Protein, pl 6.3(L) 6.5 - 8.5 g/dL CERNER BJ Comment:Testing performed by : [facility], [address] [place] [phone] Albumin 3.9 3.5 - 5.0 g/dL MERLINE PERDOMO Comment:Testing performed by : [facility], [address] [place] [phone] Alk phos 123 40 - 130 Units/L MERLNIE PERDOMO Comment:Testing performed by : [facility], [address] [place] [phone] ALT 9 7 - 55 Units/L MERLINE PERDOMO Comment:Testing performed by : [facility], [address] [place] [phone] AST 12 10 - 50 Units/L MERLINE PERDOMO Comment:Testing performed by : [facility], [address] [place] [phone] Blood 10/19/2023 11:0 5 AM CDT 10/19/2023 11:09 AM CDT us Gautam Cope MD LAB BLOOD ORDERABLES Final Resul t [facility] Department [place] [address] * (ABNORMAL) CBC with auto differential (10/19/2023 11:05 AM CDT) WBC 10.9(H) 3.8 - 9.8 K/cumm Comment:Testing performed by : [facility], [address] [place] [phone] Hgb 12.1(L) 13.8 - 17.2 g/dL MERLINE PERDOMO Comment:Testing performed by : [facility], [address] [place] [phone] Hct 36.7(L) 40.7 - 50.3 % MERLINE PERDOMO Comment:Testing performed by : [facility], [address] [place] [phone] Plt 298 140 - 440 K/cumm MERLINE PERDOMO Comment:Testing performed by : [address] [phone] MPV 7.4 6.8 - 10.4 fL MERLINE PERDOMO Comment:Testing performed by : [facility], [address] [place], [place] [phone] RBC 4.14(L) 4.50 - 5.70 M/cumm MERLINE PERDOMO Comment:Testing performed by : [facility], [address] [place], [place] [phone] MCV 88.6 80.0 - 97.6 fL MERLINE PERDOMO Comment:Testing performed by : [facility], [address] [place], [place] [phone] MCH 29.1 26.7 - 33.7 pg [facility] Comment:Testing performed by : [facility], [address] [place] [phone] MCHC 32.8 32.7 - 35.5 g/dL MERLINE PERDOMO Comment:Testing performed by : [facility], [address] [place], [place] [phone] RDW CV 14.7(H) 11.8 - 14.6 % [facility] Comment:Testing performed by : [facility], [address] [place], [place] [phone] NRBC abs 0.00 0.00 - 0.01 K/cumm [facility] Comment:Testing performed by : [address] [phone] Blood 10/19/2023 11:0 5 AM CDT 10/19/2023 11:09 AM CDT us Gautam Cope MD LAB BLOOD ORDERABLES Final Resul t MERLINE PERDOMO [facility] Department [place] [address] * Lactate dehydrogenase (LD) (10/19/2023 11:05 AM CDT) Lactate dehydrogenase (LDH) 161 100 - 250 Units/L Comment:Testing performed by : [facility], [address] [place] [phone] Blood 10/19/2023 11:0 5 AM CDT 10/19/2023 11:09 AM CDT Gautam Cope MD LAB BLOOD ORDERABLES Final Resul t Performing Organization Address [facility] Co de Phone Number [facility] Department [place] [address] * (ABNORMAL) Hemoglobin A1c (07/27/2023 10:48 AM CDT) Hgb A1C 7.9(H) 4.0 - 5.6 % Estimated Average Glucose 180 mg/dL [facility] Comment: The ADA recommends reporting an [...] Resul t Performing Organization Address [facility] de Phone Number [facility] Department [place] [address] documented in this encounter Visit Diagnoses Diagnosis Prostate cancer (HCC)- Primary Malignant neoplasm of prostate documented in this encounter Orders Appointment Requests Count Last Ordered Date Fi rst Ordered Date ONCBCN CLINIC APPOINTMENT REQUEST 2 024 07/27/2023 ONCBCN INJECTION APPOINTMENT REQUEST 1 12/2023 ON[facility]N LAB APPOINTMENT 1 10/19/2023 documented in this encounter Care Teams Health And Safety Instructor Relationship Specialty Start Date End Date Kraig Ching MD [address] [place] [address] PCP - General 07/10/16 Gautam Cope MD [address] [facility] [address] [place], [place] [id number] Medical Oncologist/Funeral Workers Medical Oncology 08/18/18 Tramaine Roe MD [address] [facility] [address] [place] [address] Referring Physician Urology 08/18/18 Sukhwinder Uribe MD [address] [facility] [address] [place] [address] Consulting Physician Urology 08/18/18 Shay Guillermo MD [address] [facility] [address] [place] [address] Referring Physician Urology 08/18/18 Marsha Landis, RN Registered Nurse 11/17/18 documented as of this encounter
--- OUTSIDE RECORDS SUMMARY | 2024-03-31 11:24 | XMS_ITS | Encounter Summary ---
Author Organization [facility] Healthcare Address [address] [place] [address] Care Team Providers Care Cook Starch Name Role Phone Kraig Chnig MD Primary Care Provider [phone] Gautam Cope MD Unavailable Tramaine Roe MD Unavailable [phone] Sukhwinder Uribe MD Unavailable [phone] Shay Guillermo MD Unavailable [phone] Marsha Landis RN Unavailable Unavailab le Reason for Visit * Episode Based Medications (Routine) - Authorized Specialty Diagnoses / Procedures Referred By Contulices t Referred To Contact Oncology Diagnoses Prostate cancer (HCC) Procedures AK LEUPROLIDE ACETATE SUSPNSION Leuprolide Every 3 Months - Prostate Gautam Cope MD [address] [facility] [address] [place] [address] Phone: tel: fax: [facility] - [facility] [address] [place] [address] Referral ID Status Reason Start Date Expiration Date V isits Requested Visits Authorized [id number] Authorized 09/06/2018 07/11/2024 1 50 Encounter Details Date Type Department Care Team (Late st Contact Info) Description 10/19/2023 10:30 AM CDT Lab [facility] [address] [facility] [facility] 7th [place] [address] Prostate cancer (HCC); Fatigue, unspecified [...] on file Legal Sex Male 4:46 PM GANG SAWYER Gender Identity Not on file Sexual Orientation [...] No change(09/06 4:37 PM CDT) No Ilene Frgaoso, RN Note: Problem: Knowledge deficit - Complications [...] to monitor diabetes and kidney status, etc. [facility] Chronic Pain Care Plan Chronic Care Management No change(03/23 1:47 PM GANG SAWYER) No Ingrid Oden, RN Note: Problem: Chronic [...] CDT 10/19/2023 11:29 AM CDT Narrative [facility] - 10/19/2023 12:30 PM CDT This test was reflexed from a TSH result. us Kraig Ching MD LAB BLOOD ORDERABLES Final Re sult [facility] Department [place] [address] * (ABNORMAL) eGFR (10/19/2023 11:05 AM CDT) [...] last reviewed 2021. Testing performed by: [facility], [address] [place] [phone] Blood 10/19/2023 11:0 5 AM CDT 10/19/2023 11:09 AM CDT us Gautam Cope MD LAB BLOOD ORDERABLES Final Resul t [facility] Department of Laboratories [place], [place] [id number] * (ABNORMAL) Differential, auto (10/19/2023 11:05 AM CDT) Neutrophil abs 8.8(H) 1.5 - 6.6 K/cumm Comment:Testing performed by : [facility], [address] [place] [phone] Lymphocyte abs 1.1(L) 1.2 - 3.3 K/cumm [facility] Comment:Testing performed by : [facility], [address] [place] [phone] Monocyte abs 0.8 0.2 - 1.2 K/cumm [facility] Comment:Testing performed by : [facility], [address] [place] [phone] Eosinophil abs 0.1 0.0 - 0.5 K/cumm [facility] Comment:Testing performed by : [facility], [address] [place] [phone] Basophil abs 0.1 0.0 - 0.2 K/cumm [facility] Comment:Testing performed by : [facility], [address] [place] [phone] Neutrophil pct 80.5 % [facility] Comment: Interpretive Data Percent cell count reference ranges are not reported, since discordance with absolute values may lead to misinterpretation of CBC data. Current Interpretive Data was last revised on 2017. Testing performed by: [facility], [address] [place] [phone] Lymphocyte pct 10.4 % [facility] Comment: Interpretive Data Percent cell count reference ranges are not reported, since discordance with absolute values may lead to misinterpretation of CBC data. Current Interpretive Data was last revised on 2017. Testing performed by: [facility], [address] [place] [phone] Monocyte pct 7.6 % [facility] Comment:Testing performed by : [facility], [address] [place] [phone] Eosinophil pct 1.0 % [facility] Comment:Testing performed by : [facility], [address] [place] [phone] Basophil pct 0.5 % [facility] Comment:Testing performed by : [facility], [address] [place] [phone] Blood 10/19/2023 11:0 5 AM CDT 10/19/2023 11:09 AM CDT us Gautam Cope MD LAB BLOOD ORDERABLES Final Resul t [facility] Department [place] [address] * (ABNORMAL) Thyroid Function [place] (10/19/2023 11:05 AM CDT) TSH 4.25(H) 0.30 - 4.20 mcIUnit/mL Blood 10/19/2023 11:0 5 AM CDT 10/19/2023 11:22 AM CDT Kraig Ching MD LAB BLOOD ORDERABLES Final Re sult Performing Organization Address [facility] de Phone Number [facility] [place] [address] * (ABNORMAL) Vitamin B12 (10/19/2023 11:05 AM CDT) Pathologist [facility] Vitamin B12 227(L) 230 - 1,250 pg/mL Blood 10/19/2023 11:0 5 AM CDT 10/19/2023 11:22 AM CDT Kraig Ching MD LAB BLOOD ORDERABLES Final Re sult Performing Organization Address [facility] Phone Number [facility] [place] [address] * (ABNORMAL) Hemoglobin A1c (10/19/2023 11:05 AM CDT) [facility] Hgb A1C 8.0(H) 4.0 - 5.6 % Estimated Average Glucose 183 mg/dL [facility] Comment: The ADA recommends reporting an [...] ORDERABLES Final Resul t Performing Organization Address [facility] de Phone Number [facility] [place] [address] * Lactate dehydrogenase (LD) (10/19/2023 11:05 AM CDT) Pathologist [facility] Lactate dehydrogenase (LDH) 161 100 - 250 Units/L Comment:Testing performed by : [facility], [address] [place] [phone] Blood 10/19/2023 11:0 5 AM CDT 10/19/2023 11:09 AM CDT us Gautam Cope MD LAB BLOOD ORDERABLES Final Resul t [facility] Department [place] [address] * (ABNORMAL) CBC with auto differential (10/19/2023 11:05 AM CDT) Pathologist [facility] WBC 10.9(H) 3.8 - 9.8 K/cumm Comment:Testing performed by : [facility], [address] [place] [phone] Hgb 12.1(L) 13.8 - 17.2 g/dL [facility] Comment:Testing performed by : [facility], [address] [place] [phone] Hct 36.7(L) 40.7 - 50.3 % [facility] Comment:Testing performed by : [facility], [address] [place] [phone] Plt 298 140 - 440 K/cumm [facility] Comment:Testing performed by : [facility], [address] [place] [phone] MPV 7.4 6.8 - 10.4 fL [facility] Comment:Testing performed by : [address] [phone] RBC 4.14(L) 4.50 - 5.70 M/cumm [facility] Comment:Testing performed by : [address] [phone] MCV 88.6 80.0 - 97.6 fL [facility] Comment:Testing performed by : [facility], [address] [place] [phone] MCH 29.1 26.7 - 33.7 pg [facility] Comment:Testing performed by : [facility], [address] [place] [phone] MCHC 32.8 32.7 - 35.5 g/dL [facility] Comment:Testing performed by : [facility], [address] [place] [phone] RDW CV 14.7(H) 11.8 - 14.6 % [facility] Comment:Testing performed by : [facility], [address] [place] [phone] NRBC abs 0.00 0.00 - 0.01 K/cumm [facility] Comment:Testing performed by : [facility], [address] [place] [phone] Blood 10/19/2023 11:0 5 AM CDT 10/19/2023 11:09 AM CDT us Gautam Cope MD LAB BLOOD ORDERABLES Final Resul t [facility] Department of Laboratories [place], [place] [id number] * (ABNORMAL) Comprehensive metabolic panel (10/19/2023 11:05 AM CDT) Sodium 140 135 - 145 mmol/L Comment:Testing performed by : [facility], [address] [place] [phone] Potassium, pl 4.4 3.3 - 4.9 mmol/L [facility] Comment:Testing performed by : [facility], [address] [place] [phone] Chloride 104 97 - 110 mmol/L [facility] Comment:Testing performed by : [address] [phone] CO2 29 22 - 32 mmol/L [facility] Comment:Testing performed by : [facility], [address] [place] [phone] Anion gap 7 2 - 15 mmol/L [facility] Comment:Testing performed by : [facility], [address] [place] [phone] BUN 35(H) 6 - 25 mg/dL [facility] Comment:Testing performed by : [facility], [address] [place] [phone] Creatinine 2.14(H) 0.80 - 1.30 mg/dL [facility] Comment:Testing performed by : [facility], [address] [place] [phone] Glucose 110 70 - 199 mg/dL [facility] [...] last revised 2022. Testing performed by: [facility], [address] [place] [phone] Calcium 9.2 8.5 - 10.3 mg/dL [facility] Comment:Testing performed by : [facility], [address] [place] [phone] Bilirubin, total 0.6 0.1 - 1.2 mg/dL [facility] Comment:Testing performed by : [facility], [address] [place] [phone] Protein, pl 6.3(L) 6.5 - 8.5 g/dL [facility] Comment:Testing performed by : [facility], [address] [place] [phone] Albumin 3.9 3.5 - 5.0 g/dL [facility] Comment:Testing performed by : [address] [phone] Alk phos 123 40 - 130 Units/L [facility] Comment:Testing performed by : [facility], [address] [facility] [phone] ALT 9 7 - 55 Units/L [facility] Comment:Testing performed by : [facility], [address] [facility] [phone] AST 12 10 - 50 Units/L [facility] Comment:Testing performed by : [facility], [address] [facility] [phone] Blood 10/19/2023 11:0 5 AM CDT 10/19/2023 11:09 AM CDT us Gautam Cope MD LAB BLOOD ORDERABLES Final Resul t [facility] [place] [address] * PSA diagnostic (10/19/2023 11:05 AM CDT) [...] ORDERABLES Final Resul t [facility] [place] [address] documented in this encounter Visit Diagnoses Diagnosis Prostate cancer (HCC) Malignant neoplasm of prostate Fatigue, unspecified type documented in this encounter Orders Appointment Requests Count Last Ordered Date Fi rst Ordered Date ONCBCN LAB APPOINTMENT 1 10/19/2023 documented in this encounter Care Teams Cook Starch Relationship Specialty Start Date End Date Kraig Ching MD [address] [place] [address] PCP - General 07/10/16 Gautam Cope MD [address] [place] [address] Medical Oncologist/Cpo Medical Oncology 08/18/18 Tramaine Roe MD [address] [place] [address] Referring Physician Urology 08/18/18 Sukhwinder Uribe MD [address] [place] [address] Consulting Physician Urology 08/18/18 Shay Guillermo MD [address] [place] [address] Referring Physician Urology 08/18/18 Marsha Landis, RN Registered Nurse 11/17/18 documented as of this encounter
--- OUTSIDE RECORDS SUMMARY | 2024-03-31 11:24 | XMS_ITS | Encounter Summary ---
Author Organization [facility] Healthcare Address [address] [place] [address] Care Team Providers Care School Age Lead Teacher Name Role Phone Kraig Ching MD Primary Care Provider [phone] Gautam Cope MD Unavailable Tramaine Roe MD Unavailable [phone] Sukhwinder Uribe MD Unavailable [phone] Shay Guillermo MD Unavailable [phone] Marsha Landis RN Unavailable Unavailab le Reason for Visit * Reason Onset Date Comments ZAK Questions 08/10/2023 Encounter Details Date Type Department Care Team (Late st Contact Info) Description 08/10/2023 Telephone [facility] [address] [facility] [address] [place] [address] Kraig Ching MD [address] [facility] [address] [place] [address] ZAK Questions Social History Tobacco [...] on file Legal Sex Male 4:46 PM [employer] OFFIC[employer] Gender Identity Not on file Sexual Orientation Not on file documented as of this encounter Miscellaneous Notes * Telephone Encounter - Clau Hernandez - 08/10/2023 2:25 PM CDT ZAK Questions (Message from [facility]er Assistant): Has patient been discharged at time of call? Yes Date Admitted: 08.03.23 Date Discharged: 08.08.23 Facility Admitted To: [facility] Reason for Stay? Sepsis If [...] to monitor diabetes and kidney status, etc. [facility] Chronic Pain Care Plan Chronic Care Management No change(03/23 1:47 PM [employer] OFFICER) No Ingrid Oden, SHEA Note: Problem: Chronic Pain Goals: 1. Minimize further functional decline 2. Maximize quality of life 3. Control pain Strategies: - Activity/exercise program recommendation - Conservative stepwise pain medicine strategy with multi-disciplinary approach - Recommend healthy lifestyle strategies and compensatory methods as needed documented as of this encounter Visit Diagnoses Not on filedocumented in this encounter Care Teams School Age Lead Teacher Relationship Specialty Start Date End Date Kraig Ching MD [address] [facility] [address] [place] [address] PCP - General 07/10/16 Gautam Cope MD [address] [facility] [address] [place] [address] Medical Oncologist/Kettle Operator Head Medical Oncology 08/18/18 Tramaine Roe MD [address] [facility] [address] [place] [address] Referring Physician Urology 08/18/18 Sukhwinder Uribe MD [address] [facility] [address] [place] [address] Consulting Physician Urology 08/18/18 Shay Guillermo MD [address] [facility] [address] [place] [address] Referring Physician Urology 08/18/18 Marsha Landis, RN Registered Nurse 11/17/18 documented as of this encounter
--- OUTSIDE RECORDS SUMMARY | 2024-03-31 11:25 | XMS_ITS | Encounter Summary ---
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] Procedures LA XCAPSL CTRC RMVL INSJ IO LENS PROSTH W/O ECP EXTRACTION CATARACT - PHACOEMULSIFICATION AND LENS IMPLANT Referral ID Status Reason Start Date Expiration Date Visits Re quested Visits Authorized [id number] 1 1 Encounter Details Date Type Department Care Team (Latest Contact Info) Description 06/09/2023 8:40 AM SOFTWARE RECRUITER - 06/09/2023 9:10 AM SOFTWARE RECRUITER Surgery [facility] [address] [place] [address] Higinio Foley MD [address] [facility] [address] [place] [address] EXTRACTION CATARACT - PHACOEMULSIFICATION AND LENS IMPLANT [...] file Legal Sex Male 4:46 PM SOFTWARE RECRUITER Gender Identity Not on file Sexual Orientation Not on file documented as of this encounter Last Filed Vital Signs Vital Sign Reading Time Taken Comments Blood Pressure 159/88 06/09/2023 8:50 AM SOFTWARE RECRUITER Pulse 57 06/09/2023 8:50 AM SOFTWARE RECRUITER Temperature 36.4 ??C (97.5 ??F) 06/09/2023 8:50 AM CS T Respiratory Rate 16 06/09/2023 8:50 AM SOFTWARE RECRUITER Oxygen Saturation 98% 06/09/2023 8:50 AM SOFTWARE RECRUITER Inhaled Oxygen Concentration - - Weight 96.6 kg (213 lb) 05/20/2023 2:00 PM SOFTWARE RECRUITER Height 179.1 cm (5' 10.5 ) 05/20/2023 2:00 PM CS T Body Mass Index 30.13 05/20/2023 2:00 PM SOFTWARE RECRUITER documented in this encounter Discharge Instructions * Discharge Instructions* Higinio Foley MD - 06/09/2023 8:53 AM SOFTWARE RECRUITER POST- OPERATIVE INSTRUCTIONS 1. Lie on the [...] NOT NORMAL, and should be reported immediately. WARE RECRUITER * Attachments The following attachments cannot be sent through Care Everywhere. * [facility] PATHWAY TO EXCELLENT CARE AFTER SURGERY documented [...] FOR CHILDREN - [place]) Take 1 tablet (25 mg total) by [...] EXTRACTION CATARACT - PHACOEMULSIFICATION AND LENS IMPLANT WARE RECRUITER Source Note - Higinio Foley MD - 06/04/2023 7:52 AM SOFTWARE RECRUITER This patient is a 82 y/o WM [...] cataract OD Plan: Proceed with phaco/IOL OD WARE RECRUITER * Higinio Foley MD - 06/04/2023 7:52 [...] cataract OD Plan: Proceed with phaco/IOL OD WARE RECRUITER documented in this encounter Miscellaneous Notes * [...] to outpatient recovery i n good condition. WARE RECRUITER * Brief Op Note - Higinio Foley MD - 06/09/2023 8:37 AM CST Operative Progress Note Surgical Team: Surgeons and Role: * Higinio Foley MD - Primary Anesthesiologist: Brett Anthony MD LAND CLEARER: yWatt Zavaleta CRNA Engineer Byproduct: Tom Renner RN Scrub: Jasmina Strauss RN; [...] Implant Name Type Inv. Item Serial No. Harp Repairer Lot No. LRB No. Used Action [employer] Lens Iol CNA0t0.195 [employer] CNA0T0.195 - [id number] - [id number] Lens [employer] Lens Iol CNA0t0.195 [employer] CNA0T0.195 [id number] [employer] Right 1 Implanted Blood/Blood Products Transfused: 0 mls Complications: None Condition on Discharge from the operating room was stable Higinio Foley MD Date: 06/09/2023 Time: 8:52 AM No Resident involved on case WARE RECRUITER * Pre-Procedure Instructions - Vale Campbell NP - 06/02/2023 12:36 PM CST [facility] Preoperative Assessment and Planning CPAP Clinic Location: [facility] The night before your surgery: * [...] going to be admitted after surgery at [facility], COVID testing may be performed on the day of surgery, even if you are up to date on your COVID-19 vaccine. * If having surgery at [facility], you may want to bring a credit card if you want to use our Mobile Pharmacy for your discharge medications. Mobile pharmacy is not available at [facility], or the [place] for [facility]. Outpatient Surgery: * You must have a [...] day of surgery Accu-Chek Fastclix Lancet [facility] [place] [place] Accu-Chek Guide test strips strip ketorolac (ACULAR) [...] with COVID-19. You test positive for COVID-19. WARE RECRUITER * Perioperative Nursing Note - Valencia Whitaker RN - 05/20/2023 2:06 PM SOFTWARE RECRUITER Center for Preoperative Assessment and Planning Perioperative [...] Specified [employer] Lens Iol Cna0t0.200 [employer] [facility] Cna0t0.200 - [id number] - [id number] - Implanted (Left) Eye Inventory item: [employer] Lens Iol CNA0t0.200 [facility] Autonom CNA0T0.200 Model/Catnumber: CNA0T0.200 Serial number: [id number] Harp Repairer: [employer] Device identifier: [id number] Device identifier type: GS1 As of 05/19/2023 [...] DNR/DNI Order: No Patient Requests Assistance: No Communication/Administrative Library Assistant Needs Communication Needs: None Assistive Devices/DME: Walker (Rollator for balance) Hearing - Right Ear: Functional Hearing - Left Ear: Functional Discharge Planning Type of Residence: Private residence Living Arrangements: Spouse/significant other Support Systems: Spouse/significant other Assistance Needed: His will drive him and help care for him after surgery. Patient expects to be discharged to:: Private residence INSURANCE CLAIMS CLERK NO ADDITIONAL COMMENTS/ FOLLOW UP WARE RECRUITER * Pre-Procedure Instructions - Valencia Whitaker RN - 05/20/2023 2:05 PM SOFTWARE RECRUITER CENTER FOR PREOPERATIVE ASSESSMENT AND PLANNING (CPAP) [...] remove nail coverings, artificial nails and nail comoran prior to the day of surgery. You should leave your valuables and any jewelry at home. No metal or piercings are allowed in the operating room. You should bring your insurance card, a photo ID (example: Radio Station Audio Engineer's License) and a method of payment for [...] Chart. If you are having surgery at [facility], please arrive on the day [...] Remove nail coverings, artificial nails and nail comoran. Place clean linens on your bed the [...] questions, please call the CPAP Staff at [phone], Wednesday-Wednesday 8am-4:30pm. All patients should read the below section: COVID 19 Updates & Visitor Policy: Please access [email or web address] for the most updated information. Information on [facility]: Please view [email or web address] (Patient & Visitor Information) for additional details regarding Advanced Directive forms, AWARE, directions, parking information, lodging, Internet access, dining and more. Information on [facility] or [facility] Surgery [place] ([facility]): Please view [email or web address] (Patient and Visitor Information) for parking/directions and more. For MyChart information, to activate account or password recovery, please go to [email or web address] or call [phone] (toll-free: [phone]), Wed- Wednesday 8am-5pm. Information for Suicide Prevention: National Suicide Prevention Lifeline (8-115- 529-ZCEJ (7399)) or call or text 402. Chat resources: [employer]. Surgery Times: For patients having surgery @ [facility] for [facility] or [facility] [place] ([facility]), if your surgeon's office has not notified you of your surgery time by NOON THE BUSINESS DAY BEFORE your surgery, please call [phone] and ask for your surgeon's office Dr. Foley. The Center for Preoperative Assessment & Planning ([facility]) does not provide arrival times for the day of surgery or provide the duration of surgery. This information is provided by your surgeon'soffice or by the center where you are having surgery. We appreciate your understanding. WARE RECRUITER documented in this encounter Plan of [...] Care Management No change(03/23 1:47 PM SOFTWARE RECRUITER) No Ingrid Oden, RN Note: Problem: Chronic [...] PHACOEMULSIFICATION AND LENS IMPLANT 06/09/2023 8:30 AM SOFTWARE RECRUITER Combined forms of age-related cataract of both eyes POCT GLUCOSE DEVICE Routine 06/09/2023 7 :52 AM SOFTWARE RECRUITER documented in this encounter Results * POCT glucose (06/09/2023 7:52 AM SOFTWARE RECRUITER) Glucose, POC 139 70 - 199 mg/dL Blood 06/09/2023 7:52 AM SOFTWARE RECRUITER 06/09/2023 7:52 AM SOFTWARE RECRUITER us Higinio Foley MD LAB POCT ORDERABLES - DEVIC E Final Result [facility] Department [place] [address] documented in this encounter Visit Diagnoses Diagnosis [...] at 0837, Intra-Op Given 06/09/2023 8:37 AM SOFTWARE RECRUITER 15 mL BSS Plus-lidocaine 0.375%-EPINEPHrine 0.25 mg (Steffi Kelley) preservative free ophthalmic solution (total volume 1 mL) 1 mL, intracameral RIGHT, Once, On Wed06/09/23 at 0815, For 1 dose, Intra-Op, Have available in the OR for surgeon administration in the right eye. Given 06/09/2023 8:37 AM SOFTWARE RECRUITER 0.3 mL Carrier Fluids for Secondary Infusion [...] During Ocular Surgery Given 06/09/2023 7:54 AM SOFTWARE RECRUITER 0.3 mL Lactated Ringer's (LR) infusion 30 mL/hr, intravenous, Continuous, Starting on Wed06/09/23 at 0815, Pre-OpIndications:Encounter for preadmission testing lidocaine 1%, BUPivacaine 0.375% preservative free ophthalmic solution (total volume 5 mL) 5 mL, periocular RIGHT , Once, On Wed06/09/23 at 0815, For 1 dose, Pre-Op/Floor, FACIAL Given 06/09/2023 8:30 AM SOFTWARE RECRUITER 5 mL lidocaine 1%, BUPivacaine 0.375% preservative free ophthalmic solution (total volume 5 mL) 5 mL, periocular RIGHT , Once, On Wed06/09/23 at 0815, For 1 dose, Pre-Op/Floor, RETROBULBAR Given 06/09/2023 8:29 AM SOFTWARE RECRUITER 5 mL moxifloxacin (VIGAMOX) 0.5 % ophthalmic solution As needed, Starting on Wed06/09/23 at 0837, Intra-Op Given 06/09/2023 8:37 AM SOFTWARE RECRUITER 4 drops povidone-iodine (BETADINE PREP) 5 % ophthalmic solution As needed, Starting on Wed06/09/23 at 0838, Intra-Op Given 06/09/2023 8:38 AM SOFTWARE RECRUITER 30 mL prednisoLONE acetate (PRED FORTE) 1 % ophthalmic suspension As needed, Starting on Wed06/09/23 at 0838, Intra-Op Given 06/09/2023 8:38 AM SOFTWARE RECRUITER 4 drops Right Eye sodium chloride 0.9% [...] Recently Administered Medications Times are shown in SOFTWARE RECRUITER. Scheduled Medication Order 06/07/2023 06/08/2023 06/09/2023 BSS [...] 05/14 documented in this encounter Care Teams Regulatory Affairs Analyst Relationship Specialty Start Date End Date Kraig Ching MD [address] [place] [address] PCP - General 07/10/16 PicusGautam MD [address] [place] [address] Medical Oncologist/Hot Mill Roller Medical Oncology 08/18/18 Tramaine Roe MD [address] [place] [address] Referring Physician Urology 08/18/18 Sukhwinder Uribe MD [address] [place] [address] Consulting Physician Urology 08/18/18 Shay Guillermo MD [address] [place] [address] Referring Physician Urology 08/18/18 Marsha Landis, RN Registered Nurse 11/17/18 documented as of this encounter
--- OUTSIDE RECORDS SUMMARY | 2024-03-31 11:25 | XMS_ITS | Encounter Summary ---
Author Organization [facility] Address [address] [place] [address] Phone Care Team Providers Care Legal Secretary Name Role Phone Kraig Ching MD Primary Care Provider [phone] Gautam Cope MD Unavailable Tramaine Roe MD Unavailable [phone] Sukhwinder Uribe MD Unavailable [phone] hSay Guillermo MD Unavailable [phone] Marsha Landis RN Unavailable Unavailab le Reason for Visit * Cardiology (Routine) - Closed Specialty Diagnoses / Procedures Referred By Contac t Referred To Contact Diagnoses Abnormal EKG Ventricular trigeminy Procedures [facility] Mobile Cardiac Telemetry Event Monitor Rodolfo Peters MD [address] [place] [address] Phone: tel: fax: [facility] [address] [place] [address] Referral ID Status Reason Start Date Expiration Date Visits Re quested Visits Authorized [id number] Closed 03/18/2023 04/16/2024 1 1 Encounter Details Date Type Department Care Team (Latest Contact Info) Description 03/18/2023 3:30 PM OCTAVE BOARD ASSEMBLER Ancillary Procedure [facility] [address] [facility] Advanced Medicine [address]th [place] [address] [place] [address] Abnormal EKG; Ventricular trigeminy Social [...] on file Legal Sex Male 4:46 PM OCTAVE BOARD ASSEMBLER Gender Identity Not on file Sexual [...] to monitor diabetes and kidney status, etc. [facility] Chronic Pain Care Plan Chronic Care Management No change(03/23 1:47 PM OCTAVE BOARD ASSEMBLER) No Ingrid Oden, SHEA Note: Problem: Chronic Pain Goals: 1. Minimize further functional decline 2. Maximize quality of life 3. Control pain Strategies: - Activity/exercise program recommendation - Conservative stepwise pain medicine strategy with multi-disciplinary approach - Recommend healthy lifestyle strategies and compensatory methods as needed documented as of this encounter Procedures Procedure Name Priority Date/Time Associated Diagnosis Comments [facility] - MOBILE CARDIAC TELEMETRY EVENT MONITOR Routine 03/18/2023 4:19 PM OCTAVE BOARD ASSEMBLER Abnormal EKG Ventricular trigeminy documented in this encounter Results * [facility] Mobile Cardiac Telemetry Event Monitor (03/18/2023 4:19 PM OCTAVE BOARD ASSEMBLER) Anatomical Region Laterality Modality Electrocardiogra phy 03/18/2023 3:30 PM OCTAVE BOARD ASSEMBLER Narrative 04/19/2023 5:41 PM OCTAVE BOARD ASSEMBLER Patient name: David Wei Date of test: 03/18/2023 Type of Test: Event Monitor ([facility]) [facility] #: [id number] ?Location: [facility] Heart and Vascular : 1940 ??Age: 82 ??Sex: M Ref Physician(s): RODOLFO PETERS MD Interpreted by: Evaristo Nunez MD [employer] Mobile-R-Squared Tech: JJ Baker Diagnosis: Monitoring Service: Preventice Reason for Test: I48.91: Unspecified atrial fibrillation Monitor Used: Body Guardian Heart (MCT) ??[id number] Enrollment Period: Mar 18 - Apr 11, 2023 Hook-Up Tech comments: The device was applied by the agricultural engineering technicians on this note. The patient was instructed [...] The full scanned/data report is available in [employer]. labeled MONITOR STRIPS PDF . This study [...] test: 03/18/2023 Type of Test: Event Monitor ([facility]) [facility] #: [id number] Location: [facility] Heart and Vascular : 1940 Age: 82 Sex: M Ref Physician(s): RODOLFO PETERS MD Interpreted by: Evaristo Nunez MD Hook-Up Tech: Mary Jo Esquivel RMA Diagnosis: Monitoring Service: Preventice Reason for Test: I48.91: Unspecified atrial fibrillation Monitor Used: Body Guardian Heart (SpreadShout) [id number] Enrollment Period: Mar 18 - Apr 11, 2023 [employer] Mobile-Up [employer] comments: The device was applied by the agricultural engineering technicians on this note. The patient was instructed [...] The full scanned/data report is available in [facility]. labeled MONITOR STRIPS PDF . This [...] trigeminy documented in this encounter Care Teams Legal Secretary Relationship Specialty Start Date End Date Kraig Ching MD [address] [place] [address] PCP - General 07/10/16 Gautam Cope MD [address] [place] [address] Medical Oncologist/Desktop Publisher Medical Oncology 08/18/18 Tramaine Roe MD [address] [facility] [address] [place] [address] Referring Physician Urology 08/18/18 Sukhwinder Uribe MD [address] [facility] [address] [place] [address] Consulting Physician Urology 08/18/18 Shay Guillermo MD [address] [facility] [address] [place] [address] Referring Physician Urology 08/18/18 Marsha Landis, RN Registered Nurse 11/17/18 documented as of this encounter
--- OUTSIDE RECORDS SUMMARY | 2024-03-31 11:25 | XMS_ITS | Encounter Summary ---
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] Procedures UT XCAPSL CTRC RMVL INSJ IO LENS PROSTH W/O ECP EXTRACTION CATARACT - PHACOEMULSIFICATION AND LENS IMPLANT Referral ID Status Reason Start Date Expiration Date Visits Re quested Visits Authorized [id number] 1 1 Encounter Details Date Type Department Care Team (Late st Contact Info) Description 05/19/2023 9:01 AM LABORER BRUSH CLEARING Anesthesia Event [facility] Surgery at [facility] [address] [place] [address] Beau Minaya MD [address] [place], [place] [id number] Ladi Vásquez NP [address] [facility] [phone] [place] [address] Anesthesia Record Procedure Summary Procedure [...] Bilateral; Back; 03/14/24 (Retired LDA, Removed/Completed by [employer] with LDA Utility); 1213 (Retired LDA, Removed/Completed by [employer] with LDA Utility) 01/17/19 0000 by Jayla Gibson RN 03/14/24 1213 by Discharge Provider, Automatic RETIRED Wound 03/23/23; 1538; No; Puncture; Mid-line; Buttocks; 03/14/24 (Retired LDA, Removed/Completed by [employer] with LDA Utility); 1213 (Retired LDA, Removed/Completed by [employer] with LDA Utility) 03/23/23 1538 by Kiran [...] ft; Eye; 03/14/24 (Retired LDA, Removed/Completed by [facility] with LDA Utility); 1213 (Retired LDA, Removed/Completed by [facility] with LDA Utility) 05/19/23 0903 by [...] on file Legal Sex Male 4:46 PM LABORER BRUSH CLEARING Gender Identity Not on file Sexual Orientation Not on file documented as of this encounter OR Notes * Anesthesia Postprocedure Evaluation - Beau Minaya MD - 05/19/2023 9:44 AM CST Patient: David Wei Procedure Summary Date: 05/19/23 Room / Location: [facility] OPERATING ROOM [facility] Operating Room Anesthesia Start: 900 Anesthesia Stop: [...] Nausea/Vomiting status: none No notable events documented. RER BRUSH CLEARING * Anesthesia Preprocedure Evaluation - Beau Minaya MD - 05/14/2023 2:03 PM CST Images from the original note were not included. [facility] Preoperative Assessment and Planning Preoperative Evaluation Record Evaluation type/location: TPAP from [facility] Planned procedure site: [facility] OR Date: 05/14/23 NOTE: This note [...] arrhythmia - PVCs. Pertinent negatives: CAD ; VA ; CABG ; valve replacement; pacemaker/ICD; PVD; [...] negatives: dialysis and nephrolithiasis Comments: Followed by appeals examiner, Dr Guerrero Musculoskeletal/Pain + Chronic pain - [...] provided by telephone and electronically sent via [employer]. Patient verbalized understanding of instructions. Blood bank needs for day of procedure: No type and screen needed Pending labs/tests include: POC Glucose The patient is on aspirin therapy for primary prevention. The bleeding risk for the planned procedure is insignificant and therefore aspirin can be continued throughout the periprocedural period. Please call the CPAP chart room clinician ([phone]) with any questions.Plan in place. Patient was cancelled 02.17.2023 at [facility] for cataract surgery d/t telemetry shows frequent PVCs and occasional ventricular bigeminy. 12 lead EKG obtained and shows atrial fibrillation (known hx) with frequent PVCs. He also has a harsh systolic murmur on physical exam, was instructed to see school age lead teacher and be worked up to d/t concern for structural/electrical pathology, Saw Dr. Stiles and TTE with event monitor- TTE relatively unchanged from 2018 and increased carvedilol d/t a few episode NSVT noted on event monitor Sent case and workup to Adolfo POD leader to see ok to proceed at [facility] awaiting on response. Preoperative evaluation performed by Ladi Vásquez NP on 05/14/23 at 2:09 PM . Follow up note The patient is currently scheduled for their procedure at [facility]. The case was discussed amongst myself, CPAP attending Dr. Church, and [facility] Anesthesiology Chief Dr. Ward due to cancellation 02/17/2023 for telemetry shows frequent PVCs and occasional ventricularbigeminy. 12 lead EKG obtained and shows atrial fibrillation (known hx) with frequent PVCs. He alsohas a harsh systolic murmur on physical exam. Nurse Infection Control workup completed After discussion, it is felt that the patient is an appropriate candidate for the procedure at [facility]. 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 chronic kidney disease (HCC) 10/15/2021 Gastroesophageal reflux disease 04/08/2021 Secondary hyperparathyroidism of renal origin ([facility]) 09/15/2019 Spinal stenosis of lumbar region with neurogenic claudication 09/09/2018 Sciatica, left side 09/09/2018 Chronic bilateral low back pain with bilateral sciatica 09/09/2018 Prostate cancer ([facility]) 09/06/2018 SBO (small bowel obstruction) ([facility]) ([facility]) 07/15/2018 Chronic diastolic heart failure ([facility]) 01/25/2018 Shortness of breath 01/25/2018 Hypertensive kidney disease with chronic kidney disease stage III ([facility]) 11/25/2017 Duodenal ulcer 11/25/2017 PAF (paroxysmal atrial fibrillation) ([facility]) ([facility]) 10/22/2017 COPD (chronic obstructive pulmonary disease) ([facility]) 10/22/2017 Chronic kidney disease, stage 3b ([facility]) 10/22/2017 Allergy to statin medication 08/30/2017 Tobacco use 08/30/2017 Hyperlipidemia associated with type 2 diabetes mellitus ([facility]) 01/15/2017 Inflamed seborrheic keratosis 10/03/2014 Actinic keratosis 10/03/2014 Benign neoplastic disease 10/03/2014 Angioma 10/03/2014 Vitamin D deficiency 12/15/2013 Hypertension 01/12/2012 Type 2 diabetes mellitus without complication, with long-term current use of insulin ([facility]) ([facility]) 01/12/2012 Hyperlipidemia 01/12/2012 Past Medical History: Diagnosis Date Anemia Chronic pain disorder Diabetes ([facility]) Diverticulitis Esophageal stricture GERD (gastroesophageal [...] The full scanned/data report is available in [facility]. labeled MONITOR STRIPS PDF There were [...] Medication protocol when under care of a WASTE REMOVALIST Planned anesthesia: MAC Induction: Induction: intravenous. Postoperative Plan: No plan for postoperative opioid use. No postoperative mechanical ventilation intended. Patient's planned disposition post procedure is Outpatient. Planned trial extubation. Informed Consent: Discussed plan with WASTE REMOVALIST. Anesthesia plan and risks discussed with patient and spouse. Plan and Consent Comments: Risks discussed: failed MAC with conversion to GA, sore throat, nausea, pain, airway and dental damage, aspiration, pulmonary complications, awareness under anaesthesia, VA & MACE, stroke, drug reaction, major organ dysfunction Consent and Attending signature: I and/or my designee have discussed the anesthesia plan, benefits, possible alternatives, parental presence at time of induction (if indicated), and clinically relevant risks that may include dental injury, unintentional awareness, and/or other complications. The patient and/or parent/legal guardian understand, and agree to proceed. All questions answered. RER BRUSH CLEARING RER BRUSH CLEARING RER BRUSH CLEARING RER BRUSH CLEARING documented in this encounter Plan of Treatment [...] monitor diabetes and kidney status, etc. [facility] Chronic Pain Care Plan Chronic Care Management No change(03/23 1:47 PM LABORER BRUSH CLEARING) No Ingrid Oden RN Note: Problem: Chronic [...] Ventricular ArrhythmiasIndications:Ventricular Arrhythmias Given 05/19/2023 9:01 AM LABORER BRUSH CLEARING 40 mg propofoL (DIPRIVAN) 10 mg/mL IV intravenous, As needed, Starting on Wed05/19/23 at 0901, Anesthesia Intra-op New Bag 05/19/2023 9:01 AM LABORER BRUSH CLEARING 40 mg documented in this encounter Care Teams Vegetable Farm Worker Relationship Specialty Start Date End Date Kraig Ching MD [address] [facility] [address] [place] [address] PCP - General 07/10/16 Gautam Cope MD [address] [facility] [address] [place] [address] Medical Oncologist/Manager Generation Medical Oncology 08/18/18 Tramaine Roe MD [address] [facility] [address] [place] [address] Referring Physician Urology 08/18/18 Sukhwinder Uribe MD [address] [facility] [address] [place] [address] Consulting Physician Urology 08/18/18 Shay Guillermo MD [address] [facility] [address] [place] [address] Referring Physician Urology 08/18/18 Marsha Landis RN Registered Nurse 11/17/18 documented as of this encounter
--- OUTSIDE RECORDS SUMMARY | 2024-03-31 11:25 | XMS_ITS | Encounter Summary ---
Author Organization [facility] Address [address] [place] [address] Phone Care Team Providers Care Home Lighting Adviser Name Role Phone Kraig Ching MD Primary Care Provider [phone] Gautam Cope MD Unavailable Tramaine Roe MD Unavailable [phone] Sukhwinder Uribe MD Unavailable [phone] Shay Guillermo MD Unavailable [phone] Marsha Landis RN Unavailable Unavailab le Encounter [...] on file Legal Sex Male 4:46 PM COMMUNITY RESOURCE CONSULTANT Gender Identity Not on file Sexual [...] Care Management No change(09/06 4:37 PM CDT) Ielne Yadav RN Note: Problem: Knowledge deficit - [...] Chronic Care Management No change(03/23 1:47 PM COMMUNITY RESOURCE CONSULTANT) No Ingrid Oden, RN Note: Problem: Chronic Pain Goals: 1. Minimize further functional decline 2. Maximize quality of life 3. Control pain Strategies: - Activity/exercise program recommendation - Conservative stepwise pain medicine strategy with multi-disciplinary approach - Recommend healthy lifestyle strategies and compensatory methods as needed documented as of this encounter Visit Diagnoses Not on filedocumented in this encounter Care Teams Home Lighting Adviser Relationship Specialty Start Date End Date Kraig Ching MD [address] [place] [address] PCP - General 07/10/16 Gautam Cope MD [address] [place] [address] Medical Oncologist/Undercollar Maker Medical Oncology 08/18/18 Tramaine Roe MD [address] [place] [address] Referring Physician Urology 08/18/18 Sukhwinder Uribe MD [address] [place] [address] Consulting Physician Urology 08/18/18 Shay Guillermo MD [address] [place] [address] Referring Physician Urology 08/18/18 Marsha Landis, RN Registered Nurse 11/17/18 documented as of this encounter
--- OUTSIDE RECORDS SUMMARY | 2024-03-31 11:25 | XMS_ITS | Encounter Summary ---
Author Organization [facility] Address [address] [place] [address] Phone Care Team Providers Care Tv News Director Name Role Phone Kraig Ching MD Primary Care Provider [phone] Gautam Cope MD Unavailable Tramaine Roe MD Unavailable [phone] Sukhwinder Uribe MD Unavailable [phone] Shay Guillermo MD Unavailable [phone] Marsha Landis RN Unavailable Unavailab le Reason for Visit * Cardiology (Routine) - Closed Specialty Diagnoses / Procedures Referred By Contac t Referred To Contact Diagnoses Systolic murmur Procedures Transthoracic Echo (TTE) Complete W Doppler/CF Rodolfo Peters MD [address] [place] [address] Phone: tel: fax: [facility] [address] [place] [address] Referral ID Status Reason Start Date Expiration Date Visits Re quested Visits Authorized [id number] Closed 03/18/2023 04/16/2024 1 1 Encounter Details Date Type Department Care Team (Latest Contact Info) Description 04/29/2023 11:30 AM FLOATING LABOR GANG SUPERVISOR Ancillary Procedure [facility] [address] [facility] [address] [place] [address] Systolic murmur Social History Tobacco Use [...] on file Legal Sex Male 4:46 PM FLOATING LABOR GANG SUPERVISOR Gender Identity Not on file Sexual [...] Chronic Care Management No change(03/23 1:47 PM FLOATING LABOR GANG SUPERVISOR) No Ingrid Oden, SHEA Note: Problem: [...] DOPPLER/CF W CONTRAST Routine 04/29/2023 12:39 PM FLOATING LABOR GANG SUPERVISOR Systolic murmur documented in this encounter Results * TRANSTHORACIC ECHO (TTE) COMPLETE W DOPPLER/CF W CONTRAST (04/29/2023 12:39 PM FLOATING LABOR GANG SUPERVISOR) LV EF 71 % CARDIOREPORT Anatomical Region Laterality Modality Ultrasound 04/29/2023 11:3 0 AM FLOATING LABOR GANG SUPERVISOR Narrative 04/30/2023 8:14 AM FLOATING LABOR GANG SUPERVISOR Patient name: David Wei Date of test: 04/29/2023 Type of test: TTE w/Doppler Hospital #: 0 Date of : 1940 (M) Solution Lead: PETERSON Rios Referring Physician: RODOLFO PETERS MD Contrast Agent: 0.8 ml Optison Administered, (2.2 ml wasted). Contrast Administered by: Marsha Birmingham RN Supervised/Interpreted by: René Rivera MD Diagnosis: Location: [facility] Reason for test: Murmur, GARCIA MV Structure: [...] 2=Hypo 3=Akinetic 4=Dyskin./Aneurysm 0=Not visualized) Parasternal Long [place]:MAS=1 BAS=1 MIL=1 PAVEL=1 Parasternal Short [place]:MAS=1 MIS=1 OK=1 MIL=1 MAL=1 MA=1 Apical 4 Chambers:=1 MIS=1 BIS=1 BAL=1 MAL=1 AL=1 AC=1 Apical 2 Chambers:AI=1 OK=1 BI=1 BA=1 MA=1 AA=1 AC=1 LV Global [...] MD By signing this report, the attending academic tutor certifies that he or she has personally supervised and interpreted the echocardiogram and has reviewed and or edited and agrees with the written comments contained within the report. Procedure Note René Rivera MD - 04/30/2023 Patient name: David Wei Date of test: 04/29/2023 Type of test: TTE w/Doppler [facility] #: 0 Date of : 1940 (M) Solution Lead: PETERSON Rios Referring Physician: RODOLFO PETERS MD Contrast Agent: 0.8 ml Optison Administered, (2.2 ml wasted). Contrast Administered by: Marsha Birmingham RN Supervised/Interpreted by: René Rivera MD Diagnosis: Location: [facility] Reason for test: Murmur, GARCIA MV Structure: [...] 2=Hypo 3=Akinetic 4=Dyskin./Aneurysm 0=Not visualized) Parasternal Long [place]:MAS=1 BAS=1 MIL=1 PAVEL=1 Parasternal Short [place]:MAS=1 MIS=1 OK=1 MIL=1 MAL=1 MA=1 Apical 4 Chambers:=1 MIS=1 BIS=1 BAL=1 MAL=1 AL=1 AC=1 Apical 2 Chambers:AI=1 OK=1 BI=1 BA=1 MA=1 AA=1 AC=1 LV Global [...] MD By signing this report, the attending academic tutor certifies that he or she has personally [...] Intra-Procedure (CV) Contrast Given 04/29/2023 12:38 PM FLOATING LABOR GANG SUPERVISOR 2 mL documented in this encounter Orders Medications Ordered That Adiel ht Not Have Been Administered Count Last Ordered Date First Ordered Date perflutren protein-a (OPTISO N) 3 mL in sodium chloride 0.9% 8 mL syringe 1 04/29/2023 documented in this encounter Care Teams Tv News Director Relationship Specialty Start Date End Date Kraig Ching MD [address] [facility] [address] [place] [address] PCP - General 07/10/16 Gautam Cope MD [address] [facility] [address] [place] [address] Medical Oncologist/Modular Set Crew Member Medical Oncology 08/18/18 Tramaine Roe MD [address] [address] Referring Physician Urology 08/18/18 Sukhwinder Uribe MD [id number] [place] [address] Consulting Physician Urology 08/18/18 Shay Guillermo MD [id number] [place] [address] Referring Physician Urology 08/18/18 Marsha Landis, RN Registered Nurse 11/17/18 documented as of this encounter
--- OUTSIDE RECORDS SUMMARY | 2024-03-31 11:25 | XMS_ITS | Encounter Summary ---
Author Organization [facility] Address [address] [place] [address] Phone Care Team Providers Care Materials Research Engineer Name Role Phone Kraig Ching MD Primary Care Provider [phone] Gautam Cope MD Unavailable Tramaine Roe MD Unavailable [phone] Sukhwinder Uribe MD Unavailable [phone] Shay Guillermo MD Unavailable [phone] Marsha Landis RN Unavailable Unavailab le Encounter Details Date Type Department Care Team (Late st Contact Info) Description 03/08/2023 Telephone [facility] Ophthalmology [address] [facility] 2[address] [place] [address] Janice Goldman Social History Tobacco Use Types [...] file Legal Sex Male 4:46 PM HEALTH ANALYST Gender Identity Not on file Sexual Orientation Not on file documented as of this encounter Miscellaneous Notes * Telephone Encounter - Janice Goldman - 03/08/2023 12:07 PM HEALTH ANALYST Per pt's PCP, Dr. Ching, the pt's cataract surgery was cancelled in the pre-op holding area the day of his surgery. He was sent to the E/R. His PCP states pt has had this issue for 15 years, and there's nothing new with his symptoms. Dr. Ching will send a letter stating the pt is cleared for cataract surgery. Dr Ching's # [phone]. TH ANALYST documented in this encounter Plan of Treatment [...] Care Management No change(03/23 1:47 PM HEALTH ANALYST) No Ingrid Oden, SHEA Note: Problem: Chronic Pain Goals: 1. Minimize further functional decline 2. Maximize quality of life 3. Control pain Strategies: - Activity/exercise program recommendation - Conservative stepwise pain medicine strategy with multi-disciplinary approach - Recommend healthy lifestyle strategies and compensatory methods as needed documented as of this encounter Visit Diagnoses Not on filedocumented in this encounter Care Teams Materials Research Engineer Relationship Specialty Start Date End Date Kraig Ching MD [address] [place] [address] PCP - General 07/10/16 Gautam Cope MD [address] [place] [address] Medical Oncologist/Construction Analyst Medical Oncology 08/18/18 Tramaine Roe MD [address] [place] [address] Referring Physician Urology 08/18/18 Sukhwinder Uribe MD [address] [facility] [address] [place] [address] Consulting Physician Urology 08/18/18 Shay Guillermo MD [address] [facility] [address] [place] [address] Referring Physician Urology 08/18/18 Marsha Landis, RN Registered Nurse 11/17/18 documented as of this encounter
--- OUTSIDE RECORDS SUMMARY | 2024-03-31 11:25 | XMS_ITS | Encounter Summary ---
Author Organization [facility] Address [address] [place] [address] Phone Care Team Providers Care Smoke Chaser Name Role Phone Kraig Ching MD Primary Care Provider [phone] Gautam Cope MD Unavailable Tramaine Roe MD Unavailable [phone] Sukhwinder Uribe MD Unavailable [phone] Shay Guillermo MD Unavailable [phone] Marsha Landis RN Unavailable Unavailab le Reason for Visit * Consultation (Routine) - Authorized Specialty Diagnoses / Procedures Referred By Saleem narvaez Referred To Contact Oncology Diagnoses Prostate cancer (HCC) Tramaine Roe MD [address] [facility] [address] [place] [address] Phone: tel: fax: Gautam Cope MD [address] [facility] MEDICAL ONCOLOGY[address] [place] [address] Phone: tel: fax: Referral ID Status Reason Start Date Expiration Date Visits Requested Visits Authorized [id number] Authorized Specialty Services Required 08/15/2018 04/11/2024 99 99 Encounter Details Date Type Department Care Team (Late st Contact Info) Description 05/04/2023 10:15 AM BASKET MACHINE OPERATOR Lab [facility] Oncology [address] [facility] 7th [place] [address] [place] [address] Prostate cancer (HCC) Social History [...] on file Legal Sex Male 4:46 PM BASKET MACHINE OPERATOR Gender Identity Not on file [...] to monitor diabetes and kidney status, etc. [facility] Chronic Pain Care Plan Chronic Care Management No change(03/23 1:47 PM BASKET MACHINE OPERATOR) No Ingrid Oden, SHEA Note: [...] 05/04/2023 documented in this encounter Care Teams Smoke Chaser Relationship Specialty Start Date End Date Kraig Ching MD [address] [place], [place] [id number] PCP - General 07/10/16 Gautam Cope MD [address] [place] [address] Medical Oncologist/Tailman Medical Oncology 08/18/18 Tramaine Roe MD [address] [facility] [address] [place] [address] Referring Physician Urology 08/18/18 Sukhwinder Uribe MD [address] [facility] [address] [place] [address] Consulting Physician Urology 08/18/18 Shay Guillermo MD [address] [facility] [address] [place] [address] Referring Physician Urology 08/18/18 Marsha Landis, RN Registered Nurse 11/17/18 documented as of this encounter
--- OUTSIDE RECORDS SUMMARY | 2024-03-31 11:25 | XMS_ITS | Encounter Summary ---
Author Organization [facility] Healthcare Address [address] [place] [address] Care Team Providers Care Manufacturing Systems Engineer Name Role Phone Kraig Ching MD Primary Care Provider [phone] Gautam Cope MD Unavailable Tramaine Roe MD Unavailable [phone] Sukhwinder Uribe MD Unavailable [phone] Shay Guillermo MD Unavailable [phone] Marsha Landis RN Unavailable Unavailab le Reason [...] Expiration Date Visits Re quested Visits Authorized [id number] 1 1 Encounter Details Date Type Department Care Team (Latest Contact Info) Description 06/09/2023 7:31 AM PRICER - 06/09/2023 9:20 AM [facility] Hospital Encounter [facility] Surgery at [facility] [address] [place] [address] Higinio Foley MD [address] [facility] [address] [place] [address] Encounter for preadmission testing (Primary Dx); Combined [...] on file Legal Sex Male 4:46 PM PRICER Gender Identity Not on file Sexual Orientation Not on file documented as of this encounter Last Filed Vital Signs Vital Sign Reading Time Taken Comments Blood Pressure 159/88 06/09/2023 8:50 AM PRICER Pulse 57 06/09/2023 8:50 AM PRICER Temperature 36.4 ??C (97.5 ??F) 06/09/2023 8:50 AM CS T Respiratory Rate 16 06/09/2023 8:50 AM PRICER Oxygen Saturation 98% 06/09/2023 8:50 AM PRICER Inhaled Oxygen Concentration - - Weight 96.6 kg (213 lb) 05/20/2023 2:00 PM PRICER Height 179.1 cm (5' 10.5 ) 05/20/2023 2:00 PM CS T Body Mass Index 30.13 05/20/2023 2:00 PM PRICER documented in this encounter Discharge Instructions * Discharge Instructions* Higinio Foley MD - 06/09/2023 8:53 AM PRICER POST- OPERATIVE INSTRUCTIONS 1. Lie on the [...] NOT NORMAL, and should be reported immediately. ER * Attachments The following attachments cannot be sent through Care Everywhere. * [facility] PATHWAY TO EXCELLENT CARE AFTER SURGERY [...] EXTRACTION CATARACT - PHACOEMULSIFICATION AND LENS IMPLANT ER Source Note - Higinio Foley MD - 06/04/2023 7:52 AM PRICER This patient is a 82 y/o WM [...] cataract OD Plan: Proceed with phaco/IOL OD ER * Higinio Foley MD - 06/04/2023 7:52 [...] cataract OD Plan: Proceed with phaco/IOL OD ER documented in this encounter Miscellaneous Notes * [...] to outpatient recovery i n good condition. ER * Brief Op Note - Higinio Foley MD - 06/09/2023 8:37 AM CST Operative Progress Note Surgical Team: Surgeons and Role: * Higinio Foley MD - Primary Anesthesiologist: Brett Anthony MD SOFTWARE TEST AUTOMATION ENGINEER: Wyatt Zavaleta CRNA Sinker Puller: Tom Renner RN Scrub: Jasmina Strauss RN; [...] Implant Name Type Inv. Item Serial No. Credit Portfolio Advisor Lot No. LRB No. Used Action [employer] Lens Iol CNA0t0.195 [facility] Autonom CNA0T0.195 - [id number] - [id number] Lens [employer] Lens Iol CNA0t0.195 [facility] Autonom CNA0T0.195 [id number] [employer] Right 1 Implanted Blood/Blood Products Transfused: 0 mls Complications: None Condition on Discharge from the operating room was stable Higinio Foley MD Date: 06/09/2023 Time: 8:52 AM No Resident involved on case ER * Pre-Procedure Instructions - Vlae Campbell, LILIA - 06/02/2023 12:36 PM CST [facility] Planning CPAP Clinic Location: [facility] The night before your surgery: * [...] going to be admitted after surgery at [facility], COVID testing may be performed on the day of surgery, even if you are up to date on your COVID-19 vaccine. * If having surgery at [facility], you may want to bring a credit card if you want to use our Mobile Pharmacy for your discharge medications. Mobile pharmacy is not available at [facility], the Orthopedic Center, or the [place] for [facility]. Outpatient Surgery: * You must [...] day of surgery Accu-Chek Fastclix Lancet Drum [facility] Accu-Chek Guide test strips strip ketorolac (ACULAR) [...] with COVID-19. You test positive for COVID-19. ER * Perioperative Nursing Note - Valencia Whitaker RN - 05/20/2023 2:06 PM PRICER [facility] for Preoperative Assessment and Planning Perioperative [...] topically nightly Implants Type Not Specified [email or web address] Lens Iol Cna0t0.200 [facility] Autonom Cna0t0.200 - [id number] - [id number] - Implanted (Left) Eye Inventory item: [employer] Lens Iol CNA0t0.200 [facility] Autonom CNA0T0.200 Model/Catnumber: CNA0T0.200 Serial number: [id number] Credit Portfolio Advisor: [employer] Device identifier: [id number] Device identifier type: GS1 As of 05/19/2023 [...] DNR/DNI Order: No Patient Requests Assistance: No Communication/International Guest Coordinator Needs Communication Needs: None Assistive Devices/DME: Walker (Rollator for balance) Hearing - Right Ear: Functional Hearing - Left Ear: Functional Discharge Planning Type of Residence: Private residence Living Arrangements: Spouse/significant other Support Systems: Spouse/significant other Assistance Needed: His will drive him and help care for him after surgery. Patient expects to be discharged to:: Private residence VC++ DEVELOPER NO ADDITIONAL COMMENTS/ FOLLOW UP ER * Pre-Procedure Instructions - Valencia Whitaker RN - 05/20/2023 2:05 PM PRICER [facility]ENTER FOR PREOPERATIVE ASSESSMENT AND PLANNING (CPAP) [...] remove nail coverings, artificial nails and nail tanzanian prior to the day of surgery. You should leave your valuables and any jewelry at home. No metal or piercings are allowed in the operating room. You should bring your insurance card, a photo ID (example: Pizza Delivery Driver's License) and a method of payment for [...] Chart. If you are having surgery at [facility], please arrive on the day of [...] Remove nail coverings, artificial nails and nail tanzanian. Place clean linens on your bed the [...] questions, please call the CPAP Staff at [phone], Wednesday-Wednesday 8am-4:30pm. All patients should read the below section: COVID 19 Updates & Visitor Policy: Please access [email or web address] for the most updated information. Information on [facility] & the [facility]: Please view [email or web address] (Patient & Visitor Information) for additional details regarding Advanced Directive forms, AWARE, directions, parking information, lodging, Internet access, dining and more. Information on [facility] or [facility] Surgery [place] ([facility]): Please view [email or web address] (Patient and Visitor Information) for parking/directions and more. For MyChart information, to activate account or password recovery, please go to [email or web address] or call [phone] (toll-free: [phone]), Wed- Wednesday 8am-5pm. Information for Suicide Prevention: National Suicide Prevention Lifeline (7-193- 081-DZYI (9159)) or call or text 418. Chat resources: AppGyver.org. Surgery Times: For patients having surgery @ [facility] for [facility] or [facility] Surgery [place] ([facility]), if your surgeon's office has not notified you of your surgery time by NOON THE BUSINESS DAY BEFORE your surgery, please call [phone] and ask for your surgeon's office Dr. Foley. The Center for Preoperative Assessment & Planning (CPAP) does not provide arrival times for the day of surgery or provide the duration of surgery. This information is provided by your surgeon'soffice or by the center where you are having surgery. We appreciate your understanding. ER documented in this encounter Plan of [...] Chronic Care Management No change(03/23 1:47 PM PRICER) No Ingrid Oden, SHEA Note: Problem: Chronic [...] PHACOEMULSIFICATION AND LENS IMPLANT 06/09/2023 8:30 AM PRICER Combined forms of age-related cataract of both eyes POCT GLUCOSE DEVICE Routine 06/09/2023 7 :52 AM PRICER documented in this encounter Results * POCT glucose (06/09/2023 7:52 AM PRICER) Glucose, POC 139 70 - 199 mg/dL Blood 06/09/2023 7:52 AM PRICER 06/09/2023 7:52 AM PRICER us Higinio Foley MD LAB POCT ORDERABLES - DEVIC E Final Result [facility] Department [place] [address] documented in this encounter Visit Diagnoses Diagnosis [...] During Ocular Surgery Given 06/09/2023 7:54 AM PRICER 0.3 mL Lactated Ringer's (LR) infusion 30 mL/hr, intravenous, Continuous, Starting on Wed06/09/23 at 0815, Pre-OpIndications:Encounter for preadmission testing lidocaine 1%, BUPivacaine 0.375% preservative free ophthalmic solution (total volume 5 mL) 5 mL, periocular RIGHT , Once, On Wed06/09/23 at 0815, For 1 dose, Pre-Op/Floor, FACIAL Given 06/09/2023 8:30 AM PRICER 5 mL lidocaine 1%, BUPivacaine 0.375% preservative free ophthalmic solution (total volume 5 mL) 5 mL, periocular RIGHT , Once, On Wed06/09/23 at 0815, For 1 dose, Pre-Op/Floor, RETROBULBAR Given 06/09/2023 8:29 AM PRICER 5 mL sodium chloride 0.9% flush 0.5-20 [...] Recently Administered Medications Times are shown in PRICER. Scheduled Medication Order 06/07/2023 06/08/2023 06/09/2023 BSS [...] % ophthalmic solution 1 06/09/2023 povidone-iodine (BETADINE WI EP) 5 % ophthalmic solution 1 06/09/2023 prednisoLONE acetate (PRED F ORTE) 1 % ophthalmic suspension 1 06/09/2023 sodium chloride 0.9% flush 0.5-20 mL 05/14 documented in this encounter Care Teams Manufacturing Systems Engineer Relationship Specialty Start Date End Date Kraig Ching MD [address] [facility] [address] [place] [address] PCP - General 07/10/16 PicGautam serrato MD [address] [facility] [address] [place] [address] Medical Oncologist/Commercial Construction Project Manager Medical Oncology 08/18/18 Tramaine Roe MD [address] [facility] [address] [place] [address] Referring Physician Urology 08/18/18 Sukhwinder Uribe MD [id number] [place] [address] Consulting Physician Urology 08/18/18 Shay Guillermo MD [address] [facility] [address] [place] [address] Referring Physician Urology 08/18/18 Marsha Landis, RN Registered Nurse 11/17/18 documented as of this encounter
--- OUTSIDE RECORDS SUMMARY | 2024-03-31 11:25 | XMS_ITS | Encounter Summary ---
Author Organization [facility] Healthcare Address [address] [place] [address] Care Team Providers Care Apricot Washer Name Role Phone Kraig Ching MD Primary Care Provider [phone] Gautam Cope MD Unavailable Tramaine Roe MD Unavailable [phone] Sukhwinder Uribe MD Unavailable Shay Guillermo MD Unavailable [phone] Marsha Landis RN Unavailable Unavailab le Reason for Referral * Diagnostic Imaging (Routine) - Closed Specialty Diagnoses / Procedures Referred By Contac t Referred To Contact Diagnoses Spinal stenosis of lumbar region with neurogenic claudication Lumbar radiculopathy Procedures Imaging Lumbar/Caudal Epidural Steroid INJ (51500) Maru Arreola MD PhD [id number] [place] [address] Phone: tel: fax: [address] [phone] Referral ID Status Reason Start Date Expiration Date Visits Re quested Visits Authorized [id number] Closed 03/23/2023 09/19/2023 1 1 PING CAR PORTER * Diagnostic Imaging (Routine) - Closed Specialty Diagnoses / Procedures Referred By Contac t Referred To Contact Diagnoses Spinal stenosis of lumbar region with neurogenic claudication Lumbar radiculopathy Procedures Imaging Lumbar/Caudal Epidural Steroid INJ (52822) Maru Arreola MD PhD [address] [facility] [address] [facility] [id number] [place] [address] Phone: tel: fax: [address] [phone] Referral ID Status Reason Start Date Expiration Date Visits Re quested Visits Authorized [id number] Closed 03/23/2023 09/19/2023 1 1 PING CAR PORTER Reason for Visit * Reason Comments Follow-up * Diagnostic Imaging (Routine) - Closed Specialty Diagnoses / Procedures Referred By Contac t Referred To Contact Diagnoses Spinal stenosis of lumbar region with neurogenic claudication Lumbar radiculopathy Procedures Imaging Lumbar/Caudal Epidural Steroid INJ (07087) Maru Arreola MD PhD [address] [facility] [address] [facility] [id number] [place] [address] Phone: tel: fax: [address] [phone] Referral ID Status Reason Start Date Expiration Date Visits Re quested Visits Authorized [id number] Closed 03/23/2023 09/19/2023 1 1 Encounter Details Date Type Department Care Team (Latest Contact Info) Description 03/23/2023 10:28 AM SLEEPING CAR PORTER - 03/23/2023 11:59 PM SLEEPING CAR PORTER Hospital Encounter [facility] at the [place] [facility] [address] [place] [address] for Advanced Medicine [address] [place] [address] Maru Arreola MD PhD [address] [facility] [address] [facility] [phone] [place] [address] Spinal stenosis of lumbar region with neurogenic [...] on file Legal Sex Male 4:46 PM SLEEPING CAR PORTER Gender Identity Not on file Sexual Orientation Not on file documented as of this encounter Last Filed Vital Signs Vital Sign Reading Time Taken Comments Blood Pressure 146/61 03/23/2023 3:49 PM SLEEPING CAR PORTER Pulse 67 03/23/2023 3:49 PM SLEEPING CAR PORTER Temperature 35.7 ??C (96.3 ??F) 03/23/2023 1:42 PM CS T Respiratory Rate 14 03/23/2023 3:49 PM SLEEPING CAR PORTER Oxygen Saturation 97% 03/23/2023 3:49 PM SLEEPING CAR PORTER Inhaled Oxygen Concentration - - Weight 96.6 kg (213 lb) 03/23/2023 1:42 PM SLEEPING CAR PORTER Height 180.3 cm (5' 11 ) 03/23/2023 1:42 PM SLEEPING CAR PORTER Body Mass Index 29.71 03/23/2023 1:42 PM SLEEPING CAR PORTER documented in this encounter Discharge Instructions * Discharge Instructions* Kiran Wilson RN - 03/23/2023 3:12 PM SLEEPING CAR PORTER [facility] PATIENT EDUCATION POST-PROCEDURE INFORMATION [...] 4:00 p.m., you should call the hospital grinder mill operator at and ask tospeak with the Pain Service doctor air conditioning mechanic. [facility] ([facility]) DISCHARGE INSTRUCTIONS MEDICATIONS: [...] [x] See [facility] Post Discharge Procedure Information Sheet REFERRALS: Physical Therapy [] [facility] Therapy ([phone]) [] GMI (Graded Motor Imagery) [] [facility] ([phone]) Option 1 [] GMI (Graded Motor Imagery) [] [facility] ([phone]) [x] Other: Referral to PT- [facility] [] Pain Psychologist, [facility] Pain Psychology Please call to schedule appointment [phone] or [phone] Diagnostic Test(s): May get Radiographs performed in Radiation/X-Ray 6th floor, [address]. [] Please call to schedule MRI or CT scan at [phone] [] Please call to schedule EMG at [phone] EDUCATION provided on the following: [] Spinal [...] [] See [facility] Pre-Procedure Information Sheet [] Do not eat or drink for six (6) hours before the time/date of the procedure. [] Inquire with your prescribing provider if ok to hold blood thinner for ( ) days before procedure. [] Blood work required 2 hours before procedure: [] Rig Site Engineer needed for next procedure [] Pre Procedure instructions will be sent through [employer] or by phone two working days prior to procedure. *Need help with [employer]? Call [phone]. Patient provided information and repeated back with understanding. If you need to reach us: For any questions about your procedure, please call the Pain Management Center [phone] (M-F) (8am-4pm) If you need urgent attention after 5 pm and weekends: Call the [facility] News Technical Director at [phone] and ask for the Pain Service doctor air conditioning mechanic. PING CAR PORTER PING CAR PORTER PING CAR PORTER PING CAR PORTER PING CAR PORTER PING CAR PORTER * Patient Instructions* Kiran Wilson RN - 03/23/2023 2:15 PM SLEEPING CAR PORTER PING CAR PORTER PING CAR PORTER PING CAR PORTER documented in this encounter Medications at Time [...] disease) stage 3, GFR 30-59 ml/min ([facility]) TAKE 1 TABLET(12.5 MG) BY MOUTH TWICE [...] least 1 hour after Authorizing Provider: Gautam oCpe MD Notes: -- ACCU-CHEK FASTCLIX LANCET DRUM [...] by mouth every morning Authorizing Provider: Coleen Salas MD Notes: -- BLOOD GLUCOSE DIAGNOSTIC (ACCU-CHEK [...] single visit Maru Arreola MD PhD [employer] Planned Giving Officer of Anesthesiology [facility], [facility] Pain Management Center 03/23/2023 5:17 PM PING CAR PORTER documented in this encounter Miscellaneous Notes * [...] sacral hiatus were infiltrated with 1% lidocaine. [id number] Tuohy needle was advanced through the sacral [...] Maru Arreola MD PhD 03/23/2023 3:09 PM PING CAR PORTER documented in this encounter Plan of Treatment [...] monitor diabetes and kidney status, etc. [facility] Chronic Pain Care Plan Chronic Care Management No change(03/23 1:47 PM SLEEPING CAR PORTER) No Ingrid Oden, SHEA Note: Problem: Chronic [...] Read Routine (OP Routine) 03/23/2023 3:41 PM SLEEPING CAR PORTER Spinal stenosis of lumbar region with neurogenic claudication Lumbar radiculopathy documented in this encounter Results * Imaging Lumbar/Caudal Epidural Steroid INJ (76950) (03/23/2023 3:41 PM SLEEPING CAR PORTER) Narrative [facility] - 03/23/2023 3:41 PM SLEEPING CAR PORTER The images from this study are not [...] at 1531, Intra-Op Given 03/23/2023 3:31 PM SLEEPING CAR PORTER 0.5 mL lidocaine PF (XYLOCAINE) 10 mg/mL (1 %) preservative free injection As needed, Starting on Wed03/23/23 at 1531, Intra-Op Given 03/23/2023 3:31 PM SLEEPING CAR PORTER 15 mL methylPREDNISolone acetate (DEPO-medrol) injection As needed, Starting on Wed03/23/23 at 1531, Intra-Op Given 03/23/2023 3:31 PM SLEEPING CAR PORTER 80 mg documented in this encounter Care Teams Apricot Washer Relationship Specialty Start Date End Date Kraig Ching MD [address] [facility] [address] [place] [address] PCP - General 07/10/16 Gautam Cope MD [address] [facility] [address] [place] [address] Medical Oncologist/Carroting Machine Offbearer Medical Oncology 08/18/18 Tramaine Roe MD [address] [facility] [address] [place] [address] Referring Physician Urology 08/18/18 Sukhwinder Uribe MD [address] [facility] [address] [place] [address] Consulting Physician Urology 08/18/18 Shay Guillermo MD [address] [facility] [address] [place] [address] Referring Physician Urology 08/18/18 Marsha Landis, RN Registered Nurse 11/17/18 documented as of this encounter
--- OUTSIDE RECORDS SUMMARY | 2024-03-31 11:25 | XMS_ITS | Encounter Summary ---
Author Organization [facility] Healthcare Address [address] [place] [address] Care Team Providers Care Soil Fertility Specialist Name Role Phone Kraig Ching MD Primary Care Provider [phone] Gautam Cope MD Unavailable Tramaine Roe MD Unavailable [phone] Sukhwinder Uribe MD Unavailable [phone] Shay Guillermo MD Unavailable [phone] Marsha Landis RN Unavailable Unavailab le Encounter Details Date Type Department Care Team (Late st Contact Info) Description 03/18/2023 4:50 PM DIESEL PLANT OPERATOR Lab [facility] Advanced Medicine [facility] Advanced Medicine ([facility]) [address] [place] [phone] Abnormal EKG Social History Tobacco Use Types [...] on file Legal Sex Male 4:46 PM DIESEL PLANT OPERATOR Gender Identity Not on file Sexual [...] Chronic Care Management No change(03/23 1:47 PM DIESEL PLANT OPERATOR) No Ingrid Oden, SHEA Note: Problem: [...] Diagnosis Comments EGFR Routine 03/18/2023 4:15 PM DIESEL PLANT OPERATOR Abnormal EKG MAGNESIUM Routine 03/18/2023 4:15 PM DIESEL PLANT OPERATOR Abnormal EKG BASIC METABOLIC PANEL Routine 03/18/2023 4:15 PM DIESEL PLANT OPERATOR Abnormal EKG documented in this encounter Results * (ABNORMAL) eGFR (03/18/2023 4:15 PM DIESEL PLANT OPERATOR) eGFR 31(L) >=60 mL/min/1. 73 m2 MERLINE [...] last reviewed 2021. Blood 03/18/2023 4:15 PM DIESEL PLANT OPERATOR 03/18/2023 4:58 PM DIESEL PLANT OPERATOR us Alexandro Albert MD LAB BLOOD ORDERABLES Final Resul t Performing Organization Address City/[facility] Co de Phone Number [facility] [place] [address] * Magnesium (03/18/2023 4:15 PM DIESEL PLANT OPERATOR) Magnesium 1.7 1.4 - 2.5 mg/dL [facility] Blood 03/18/2023 4:15 PM DIESEL PLANT OPERATOR 03/18/2023 4:45 PM DIESEL PLANT OPERATOR Alexandro Albert MD LAB BLOOD ORDERABLES Final Resul t Performing Organization Address [facility] de Phone Number [facility] [place] [address] * (ABNORMAL) Basic metabolic panel (03/18/2023 4:15 PM DIESEL PLANT OPERATOR) Sodium 144 135 - 145 mmol/L [facility] Potassium, pl 4.5 3.3 - 4.9 mmol/L [facility] Chloride 104 97 - 110 mmol/L [facility] CO2 28 22 - 32 mmol/L [facility] Anion gap 12 2 - 15 mmol/L [facility] BUN 36(H) 6 - 25 mg/dL [facility] Creatinine 2.08(H) 0.80 - 1.30 mg/dL [facility] Glucose 137 70 - 199 mg/dL [facility] [...] Calcium 9.1 8.5 - 10.3 mg/dL [facility] Blood 03/18/2023 4:15 PM DIESEL PLANT OPERATOR 03/18/2023 4:45 PM DIESEL PLANT OPERATOR us Alexandro Albert MD LAB BLOOD ORDERABLES Final Resul t [facility] Department [place] [address] documented in this encounter Visit Diagnoses Diagnosis Abnormal EKG Nonspecific abnormal electrocardiogram (ECG) (EKG) documented in this encounter Care Teams Soil Fertility Specialist Relationship Specialty Start Date End Date Kraig Ching MD [address] [place] [address] PCP - General 07/10/16 Gautam Cope MD [address] [place] [address] Medical Oncologist/Equipment Operating Engineer Medical Oncology 08/18/18 Tramaine Roe MD [address] [place] [address] Referring Physician Urology 08/18/18 Sukhwinder Uribe MD [address] [place] [address] Consulting Physician Urology 08/18/18 Shay Guillermo MD [address] [place] [address] Referring Physician Urology 08/18/18 Marsha Landis, RN Registered Nurse 11/17/18 documented as of this encounter
--- OUTSIDE RECORDS SUMMARY | 2024-03-31 11:25 | XMS_ITS | Encounter Summary ---
Author Organization [facility] Address [address] [place] [address] Phone Care Team Providers Care Welfare Eligibility Worker Name Role Phone Kraig Ching MD Primary Care Provider [phone] Gautam Cope MD Unavailable Tramaine Roe MD Unavailable [phone] Sukhwinder Uribe MD Unavailable Shay Guillermo MD Unavailable [phone] Marsha Landis RN Unavailable Unavailab le Encounter Details Date Type Department Care Team (Late st Contact Info) Description 05/20/2023 8:15 AM PUBLIC DEFENDER Office Visit [facility] Ophthalmology [address] [facility] [address] [place] [address] Higinio Connolly MD [address] [facility] [address] [place] [address] Pseudophakia of left eye (Primary Dx) Social [...] on file Legal Sex Male 4:46 PM PUBLIC DEFENDER Gender Identity Not on file Sexual Orientation [...] to use CNA0T with plano target OD. IC DEFENDER documented in this encounter Plan of Treatment [...] Management No change(09/06 4:37 PM CDT) No lIene Fragoso, RN Note: Problem: Knowledge deficit - [...] Chronic Care Management No change(03/23 1:47 PM PUBLIC DEFENDER) No Ingrid Oden, RN Note: Problem: Chronic [...] lens, no Posterior capsular opacification Care Teams Welfare Eligibility Worker Relationship Specialty Start Date End Date Kraig Ching MD [address] [facility] [address] [place] [address] PCP - General 07/10/16 Gautam Cope MD [address] [facility] [address] [place] [address] Medical Oncologist/Mesh Cutter Medical Oncology 08/18/18 Tramaine Roe MD [address] [facility] [address] [place] [address] Referring Physician Urology 08/18/18 Sukhwinder Uribe MD [address] [facility] [address] [place] [address] Consulting Physician Urology 08/18/18 Shay Guillermo MD [address] [facility] [address] [place] [address] Referring Physician Urology 08/18/18 Marsha Landis, RN Registered Nurse 11/17/18 documented as of this encounter
--- OUTSIDE RECORDS SUMMARY | 2024-03-31 11:25 | XMS_ITS | Encounter Summary ---
Author Organization [facility] Address [address] [place] [address] Phone Care Team Providers Care Engine Dispatcher Name Role Phone Kraig Ching MD Primary Care Provider [phone] Gautam Cope MD Unavailable Tramaine Roe MD Unavailable [phone] Sukhwinder Uribe MD Unavailable Shay Guillermo MD Unavailable [phone] Marsha Landis RN Unavailable Unavailab le Reason for Visit * Reason Comments Post-op - Cataract Encounter Details Date Type Department Care Team (Late st Contact Info) Description 06/10/2023 8:30 AM MILL ORDER SCHEDULER Office Visit [facility] Ophthalmology [address] [facility] [address] [place] [address] Higinio Connolly MD [address] [facility] [address] [place] [address] Pseudophakia of both eyes (Primary Dx) Social [...] on file Legal Sex Male 4:46 PM MILL ORDER SCHEDULER Gender Identity Not on file Sexual Orientation Not on file documented as of this encounter Progress Notes * Higinio Connolly MD - 06/10/2023 8:30 AM CST Impression: Stable post operative day #1 status post (s/p) phaco/IOL right eye (OD) Plan: Post-op instructions discussed. Start Moxifloxacin, Ketorolac, and Prednisone 1% OD TID. Return in two weeks or prn for post-op visit. ORDER SCHEDULER documented in this encounter Plan of Treatment [...] monitor diabetes and kidney status, etc. [facility] Chronic Pain Care Plan Chronic Care Management No change(03/23 1:47 PM MILL ORDER SCHEDULER) No Ingrid Oden, RN Note: Problem: Chronic [...] lens, no Posterior capsular opacification Care Teams Engine Dispatcher Relationship Specialty Start Date End Date Kraig Ching MD [address] [facility] [address] [place] [address] PCP - General 07/10/16 Gautam Cope MD [address] [facility] [address] [place] [address] Medical Oncologist/Brewmaster Medical Oncology 08/18/18 Tramaine Roe MD [address] [facility] [address] [place] [address] Referring Physician Urology 08/18/18 Sukhwinder Uribe MD [address] [facility] [address] [place] [address] Consulting Physician Urology 08/18/18 Shay Guillermo MD [address] [facility] [address] [place] [address] Referring Physician Urology 08/18/18 Marsha Landis, RN Registered Nurse 11/17/18 documented as of this encounter
--- OUTSIDE RECORDS SUMMARY | 2024-03-31 11:25 | XMS_ITS | Encounter Summary ---
Author Organization [facility] Address [address] [place] [address] Phone Care Team Providers Care Bi Solutions Architect Name Role Phone Kraig Ching MD Primary Care Provider [phone] Gautam Cope MD Unavailable Tramaine Roe MD Unavailable [phone] Sukhwinder Uribe MD Unavailable [phone] Shay Guillermo MD Unavailable [phone] Marsha Landis RN Unavailable Unavailab le Reason for Referral * Cardiology (Routine) - Closed Specialty Diagnoses / Procedures Referred By Saleem narvaez Referred To Contact Diagnoses Systolic murmur Procedures Transthoracic Echo (TTE) Complete W Doppler/CF Rodolfo Peters MD [address] [place] [address] Phone: tel: fax: [facility] [address] [place] [address] Referral ID Status Reason Start Date Expiration Date Visits Re quested Visits Authorized [id number] Closed 03/18/2023 04/16/2024 1 1 D COUNSEL * Cardiology (Routine) - Closed Specialty Diagnoses / Procedures Referred By Saleem narvaez Referred To Contact Diagnoses Abnormal EKG Ventricular trigeminy Procedures MCT Mobile Cardiac Telemetry Event Monitor Rodolfo Peters MD [address] [place] [address] Phone: tel: fax: [facility] [address] [facility] [place] [address] Referral ID Status Reason Start Date Expiration Date Visits Re quested Visits Authorized [id number] Closed 03/18/2023 04/16/2024 1 1 D COUNSEL Reason for Visit * Consultation (Routine) - Closed Specialty Diagnoses / Procedures Referred By Contac t Referred To Contact Cardiology Diagnoses Abnormal EKG Systolic murmur Mary Ellen Stone NP [address] [facility] [place] [address] Phone: tel: fax: [facility] (All Locations) Referral ID Status Reason Start Date Expiration Date V isits Requested Visits Authorized [id number] Closed Specialty Services Required 02/18/2023 03/19/2024 12 12 Encounter Details Date Type Department Care Team (Late st Contact Info) Description 03/18/2023 2:00 PM FIELD COUNSEL Office Visit [facility] Cardiology [address] [facility] [address] 8th [place] [address] [place] [address] Rodolfo Peters MD [address] [place] [address] Abnormal EKG; Systolic murmur; Ventricular trigeminy Social [...] file Legal Sex Male 4:46 PM FIELD COUNSEL Gender Identity Not on file Sexual Orientation Not on file documented as of this encounter Last Filed Vital Signs Vital Sign Reading Time Taken Comments Blood Pressure 192/97 03/18/2023 3:06 PM FIELD COUNSEL Pulse 57 03/18/2023 3:06 PM FIELD COUNSEL Temperature - - Respiratory Rate - - Oxygen Saturation 98% 03/18/2023 3:06 PM FIELD COUNSEL Inhaled Oxygen Concentration - - Weight 97.1 kg (214 lb) 03/18/2023 3:06 PM FIELD COUNSEL Height 180.3 cm (5' 11 ) 03/18/2023 3:06 PM FIELD COUNSEL Body Mass Index 29.85 03/18/2023 3:06 PM FIELD COUNSEL documented in this encounter Progress Notes * Rodolfo Peters MD - 03/18/2023 2:00 PM CST Images from the original note were not included. [facility] DEPARTMENT OF MEDICINE - CARDIOVASCULAR DIVISION SECTION OF CARDIO-ONCOLOGY CLINIC VISIT Patient's Name: David Wei : 1940 Age: 82 y.o. Patient's Care Team: Patient Care Team: Kraig Ching MD as PCP - General Picus, MD Gautam as Medical Oncologist/Weight Shifter (Medical Oncology) Tramaine Roe MD as Referring [...] by Dr. 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 (All Locations) [167] Order Specific Question: Exam Type: Answer: Adult Order Specific Question: Reason / Symptom Answer: Other (specify) Transthoracic Echo (TTE) Complete W Doppler/CF Standing Status: Future Standing Expiration Date: 03/18/2024 Order Specific Question: Please select the performing department: Answer: [facility] [152] Order Specific Question: Contrast Default Option [...] types were placed in this encounter. D COUNSEL documented in this encounter Plan of Treatment [...] Care Management No change(03/23 1:47 PM FIELD COUNSEL) No Ingrid Oden, RN Note: Problem: Chronic [...] DOPPLER/CF W CONTRAST (04/29/2023 12:39 PM FIELD COUNSEL) LV EF 71 % CARDIOREPORT Anatomical Region Laterality Modality Ultrasound 04/29/2023 11:3 0 AM FIELD COUNSEL Narrative 04/30/2023 8:14 AM FIELD COUNSEL Patient name: David Wei Date of test: 04/29/2023 Type of test: TTE w/Doppler [facility] #: 0 Date of : 1940 (M) Site Worker: PETERSON Rios Referring Physician: RODOLFO PETERS MD Contrast Agent: 0.8 ml Optison Administered, (2.2 ml wasted). Contrast Administered by: Marsha Birmingham RN Supervised/Interpreted by: René Rivera MD Diagnosis: Location: [facility] Reason for test: Murmur, GARCIA MV Structure: [...] 2=Hypo 3=Akinetic 4=Dyskin./Aneurysm 0=Not visualized) Parasternal Long [place]:MAS=1 BAS=1 MIL=1 PAVEL=1 Parasternal Short [place]:MAS=1 MIS=1 TN=1 MIL=1 MAL=1 MA=1 Apical 4 [...] MD By signing this report, the attending captain cannery tender certifies that he or she has personally supervised and interpreted the echocardiogram and has reviewed and or edited and agrees with the written comments contained within the report. Procedure Note René Rivera MD - 04/30/2023 Patient name: David Wei Date of test: 04/29/2023 Type of test: TTE w/Doppler [facility] #: 0 Date of : 1940 (M) Site Worker: PETERSON Rios Referring Physician: RODOLFO PETERS MD Contrast Agent: 0.8 ml Optison Administered, (2.2 ml wasted). Contrast Administered by: Marsha Birmingham RN Supervised/Interpreted by: René Rivera MD Diagnosis: Location: [facility] Reason for test: Murmur, GARCIA MV Structure: [...] 2=Hypo 3=Akinetic 4=Dyskin./Aneurysm 0=Not visualized) Parasternal Long [place]:MAS=1 BAS=1 MIL=1 PAVEL=1 Parasternal Short [place]:MAS=1 MIS=1 TN=1 MIL=1 MAL=1 MA=1 Apical 4 [...] MD By signing this report, the attending captain cannery tender certifies that he or she has personally supervised and interpreted the echocardiogram and has reviewed and or edited and agrees with the written comments contained within the report. us Rodolfo Peters MD CV ECHO PROCEDURES Final Result * [facility] Mobile Cardiac Telemetry Event Monitor (03/18/2023 4:19 PM FIELD COUNSEL) Anatomical Region Laterality Modality Electrocardiogra phy 03/18/2023 3:30 PM FIELD COUNSEL Narrative 04/19/2023 5:41 PM FIELD COUNSEL Patient name: David Wei Date of test: 03/18/2023 Type of Test: Event Monitor ([facility]) Hospital #: [id number] ?Location: [facility] Heart and Vascular : 1940 ??Age: 82 ??Sex: M Ref Physician(s): RODOLFO PETERS MD Interpreted by: Evaristo Nunez MD RedCap: JJ Baker Diagnosis: Monitoring Service: Prevent[employer] Reason for Test: I48.91: Unspecified atrial fibrillation Monitor Used: Body [facility] (MCT) ??[id number] Enrollment Period: Mar 18 - Apr 11, 2023 RedCap comments: The device was applied by the press technician on this note. The patient was [...] The full scanned/data report is available in [facility]. labeled MONITOR STRIPS PDF . This study [...] test: 03/18/2023 Type of Test: Event Monitor ([facility]) Hospital #: [id number] Location: [facility] Heart and Vascular : 1940 Age: 82 Sex: M Ref Physician(s): RODOLFO PETERS MD Interpreted by: Evaristo Nunez MD Hook-Up Tech: Mary Jo Esquivel [facility] Diagnosis: Monitoring Service: [employer] Reason for Test: I48.91: Unspecified atrial fibrillation Monitor Used: Body [employer] [facility] ([facility]) [id number] Enrollment Period: Mar 18 - Apr 11, 2023 Hook-Up Tech comments: The device was applied by the press technician on this note. The patient was [...] The full scanned/data report is available in [facility]. labeled MONITOR STRIPS PDF . This study [...] Rhythm, Sinus Bradycardia w/PVCs (4 in 1 min)/Yessiac I have personally reviewed and interpreted this study. us Rodolfo Peters MD CV CARDIAC SERVICES PROCEDURES F inal Result * (ABNORMAL) Basic metabolic panel (03/18/2023 4:15 PM FIELD COUNSEL) Sodium 144 135 - 145 mmol/L [facility] Potassium, pl 4.5 3.3 - 4.9 mmol/L [facility] Chloride 104 97 - 110 mmol/L [facility] CO2 28 22 - 32 mmol/L [facility] Anion gap 12 2 - 15 mmol/L [facility] BUN 36(H) 6 - 25 mg/dL [facility] Creatinine 2.08(H) 0.80 - 1.30 mg/dL [facility] Glucose 137 70 - 199 mg/dL [facility] Comment: Interpretive Data Fasting glucose >/= [...] 2022. Calcium 9.1 8.5 - 10.3 mg/dL [facility] Blood 03/18/2023 4:15 PM FIELD COUNSEL 03/18/2023 4:45 PM FIELD COUNSEL us Rodolfo Peters MD LAB BLOOD ORDERABLES Final Resul t Performing Organization Address [facility] Co de Phone Number [facility] [place] [address] * Magnesium (03/18/2023 4:15 PM FIELD COUNSEL) [facility] Magnesium 1.7 1.4 - 2.5 mg/dL [facility] Blood 03/18/2023 4:15 PM FIELD COUNSEL 03/18/2023 4:45 PM FIELD COUNSEL us Rodolfo Peters MD LAB BLOOD ORDERABLES Final Resul t Performing Organization Address [facility]/ZIP Co de Phone Number [facility] [place] [address] * ECG 12 lead (03/18/2023) us Rodolfo [...] 03/18/2023 documented in this encounter Care Teams Bi Solutions Architect Relationship Specialty Start Date End Date Kraig Ching MD [address] [facility] [address] [place] [address] PCP - General 07/10/16 Gautam Cope MD [address] [facility] [address] [place] [address] Medical Oncologist/Weight Shifter Medical Oncology 08/18/18 Tramaine Roe MD [address] [facility] [address] [place] [address] Referring Physician Urology 08/18/18 Sukhwinder Uribe MD [address] [facility] [address] [place] [address] Consulting Physician Urology 08/18/18 Shay Guillermo MD [address] [facility] [address] [place] [address] Referring Physician Urology 08/18/18 Marsha Landis, RN Registered Nurse 11/17/18 documented as of this encounter
--- OUTSIDE RECORDS SUMMARY | 2024-03-31 11:25 | XMS_ITS | Encounter Summary ---
Author Organization [facility] Healthcare Address [address] [place] [address] Care Team Providers Care Barrel Rifler Hook Name Role Phone Kraig Ching MD Primary Care Provider [phone] Gautam Cope MD Unavailable Tramaine Roe MD Unavailable [phone] Sukhwinder Uribe MD Unavailable [phone] hSay Guillermo MD Unavailable [phone] Marsha Landis RN Unavailable Unavailab le Encounter Details Date Type Department Care Team (Latest Contact Info) Description 05/04/2023 2:21 PM TOOTH POLISHER - 05/04/2023 11:59 PM TOOTH POLISHER Hospital Encounter [facility] [address] [place] [address] Prostate cancer (HCC) Discharge Disposition: Discharge to [...] on file Legal Sex Male 4:46 PM TOOTH POLISHER Gender Identity Not on file Sexual Orientation [...] kidney disease) stage 3, GFR 30-59 ml/min ([facility]) Take 1 tablet (25 mg total) [...] disease, without long-term current use of insulin ([facility]) TAKE 1 TABLET BY MOUTH DAILY [...] Chronic Care Management No change(03/23 1:47 PM TOOTH POLISHER) No Ingrid Oden, RN Note: Problem: Chronic [...] Diagnosis Comments EGFR STAT 05/04/2023 10:23 AM TOOTH POLISHER Prostate cancer (HCC) DIFFERENTIAL AUTO Routine 05/04/2023 10: 23 AM TOOTH POLISHER Prostate cancer (HCC) CBC WITH AUTO DIFFERENTIAL Routine 05/04/2023 10:23 AM TOOTH POLISHER Prostate cancer (HCC) PSA DIAGNOSTIC Routine 05/04/2023 10:23 AM TOOTH POLISHER Prostate cancer (HCC) LACTATE DEHYDROGENASE Routine 05/04/2023 10:23 AM TOOTH POLISHER Prostate cancer (HCC) COMPREHENSIVE METABOLIC PANEL STAT 05/04/2023 10:23 AM TOOTH POLISHER Prostate cancer (HCC) HEMOGLOBIN A1C Routine 05/04/2023 10:06 AM TOOTH POLISHER Prostate cancer (HCC) documented in this encounter Results * (ABNORMAL) eGFR (05/04/2023 10:23 AM TOOTH POLISHER) eGFR 28(L) >=60 mL/min/1. 73 m2 [facility] [...] was last reviewed 2021. Testing performed by: [facility], [address] [place] [phone] Blood 05/04/2023 10:2 3 AM TOOTH POLISHER 05/04/2023 10:36 AM TOOTH POLISHER us Gautam Cope MD LAB BLOOD ORDERABLES Final Resul t [facility] Department of Laboratories [place], [place] [id number] * (ABNORMAL) Differential, auto (05/04/2023 10:23 AM TOOTH POLISHER) Neutrophil abs 8.0(H) 1.5 - 6.6 K/cumm [facility] Comment:Testing performed by : [facility], [address] [facility] [address] Lymphocyte abs 1.3 1.2 - 3.3 K/cumm [facility] Comment:Testing performed by : [facility], Pending sale to [facility] [address] Monocyte abs 0.8 0.2 - 1.2 K/cumm [facility] Comment:Testing performed by : [facility], [address] [place] [phone] Eosinophil abs 0.1 0.0 - 0.5 K/cumm [facility] Comment:Testing performed by : [facility], [address] [place] [address] Basophil abs 0.0 0.0 - 0.2 K/cumm [facility] Comment:Testing performed by : [facility], [address] [place] [phone] Neutrophil pct 78.6 % [facility] Comment: Interpretive Data Percent cell count reference ranges are not reported, since discordance with absolute values may lead to misinterpretation of CBC data. Current Interpretive Data was last revised on 2017. Testing performed by: [facility], [address] [place] [phone] Lymphocyte pct 12.6 % [facility] Comment: Interpretive Data Percent cell count reference ranges are not reported, since discordance with absolute values may lead to misinterpretation of CBC data. Current Interpretive Data was last revised on 2017. Testing performed by: [facility], [address] [place] [phone] Monocyte pct 7.5 % [facility] Comment:Testing performed by : [facility], [address] [place] [phone] Eosinophil pct 0.8 % [facility] Comment:Testing performed by : [facility], [address] [place] [address] Basophil pct 0.5 % [facility] Comment:Testing performed by : [address] [address] Blood 05/04/2023 10:2 3 AM TOOTH POLISHER 05/04/2023 10:36 AM TOOTH POLISHER us Gautam Cope MD LAB BLOOD ORDERABLES Final Resul t [facility] Department [place] [address] * Lactate dehydrogenase (LD) (05/04/2023 10:23 AM TOOTH POLISHER) Lactate dehydrogenase (LDH) 153 100 - 250 Units/L [facility] Comment:Testing performed by : [facility], [address] [place] [phone] Blood 05/04/2023 10:2 3 AM TOOTH POLISHER 05/04/2023 10:36 AM TOOTH POLISHER us Gautam Cope MD LAB BLOOD ORDERABLES Final Resul t [facility] Department [place] [address] * (ABNORMAL) CBC with auto differential (05/04/2023 10:23 AM TOOTH POLISHER) WBC 10.2(H) 3.8 - 9.8 K/cumm [facility] Comment:Testing performed by : [address] [address] Hgb 12.5(L) 13.8 - 17.2 g/dL [facility] Comment:Testing performed by : [facility], [address] [place] [phone] Hct 38.3(L) 40.7 - 50.3 % [facility] Comment:Testing performed by : [address] [address] Plt 315 140 - 440 K/cumm [facility] Comment:Testing performed by : [address] [address] MPV 7.6 6.8 - 10.4 fL [facility] Comment:Testing performed by : [facility], [address] [place] [phone] RBC 4.25(L) 4.50 - 5.70 M/cumm [facility] Comment:Testing performed by : [address] [address] MCV 90.1 80.0 - 97.6 fL [facility] Comment:Testing performed by : [address] [address] MCH 29.4 26.7 - 33.7 pg [facility] Comment:Testing performed by : [facility], [address] [place] [phone] MCHC 32.7 32.7 - 35.5 g/dL [facility] Comment:Testing performed by : [facility], [address] [place] [phone] RDW CV 14.9(H) 11.8 - 14.6 % [facility] Comment:Testing performed by : [facility], [address] [place] [phone] NRBC abs 0.01 0.00 - 0.01 K/cumm [facility] Comment:Testing performed by : [facility], [address] [place] [phone] Blood 05/04/2023 10:2 3 AM TOOTH POLISHER 05/04/2023 10:36 AM TOOTH POLISHER us Gautam Cope MD LAB BLOOD ORDERABLES Final Resul t [facility] Department [place] [address] * (ABNORMAL) Comprehensive metabolic panel (05/04/2023 10:23 AM TOOTH POLISHER) Sodium 140 135 - 145 mmol/L [facility] Comment:Testing performed by : [facility], [address] [place] [phone] Potassium, pl 4.5 3.3 - 4.9 mmol/L [facility] Comment:Testing performed by : [facility], [address] [place] [address] Chloride 106 97 - 110 mmol/L [facility] Comment:Testing performed by : [facility], [address] [place] [phone] CO2 27 22 - 32 mmol/L [facility] Comment:Testing performed by : [facility], [address] [place] [phone] Anion gap 8 2 - 15 mmol/L [facility] Comment:Testing performed by : [facility], [address] [place] [phone] BUN 44(H) 6 - 25 mg/dL [facility] Comment:Testing performed by : [facility], [address] [place] [phone] Creatinine 2.26(H) 0.80 - 1.30 mg/dL [facility] Comment:Testing performed by : [facility], [address] [place] [phone] Glucose 92 70 - 199 mg/dL [facility]ERNER [...] was last revised 2022. Testing performed by: [facility], [address] [place], [place] [phone] Calcium 8.8 8.5 - 10.3 mg/dL [facility] Comment:Testing performed by : [address] [address] Bilirubin, total 0.4 0.1 - 1.2 mg/dL [facility] Comment:Testing performed by : [address] [address] Protein, pl 6.0(L) 6.5 - 8.5 g/dL [facility] Comment:Testing performed by : [address] [address] Albumin 3.7 3.5 - 5.0 g/dL [facility] Comment:Testing performed by : [address] [address] Alk phos 128 40 - 130 Units/L [facility] Comment:Testing performed by : [place] [phone] ALT 11 7 - 55 Units/L [facility] Comment:Testing performed by : [place] [phone] AST 10 10 - 50 Units/L [facility] Comment:Testing performed by : [facility], [address] [facility] [phone] Blood 05/04/2023 10:2 3 AM TOOTH POLISHER 05/04/2023 10:36 AM TOOTH POLISHER Gautam Cope MD LAB BLOOD ORDERABLES Final Resul t Performing Organization Address [facility] de Phone Number [facility] Department [place] [address] * PSA diagnostic (05/04/2023 10:23 AM TOOTH POLISHER) PSA-Total <0.02 <=6.20 ng/mL [facility] Comment: [...] revised 21. Blood 05/04/2023 10:2 3 AM TOOTH POLISHER 05/04/2023 11:07 AM TOOTH POLISHER Gautam Cope MD LAB BLOOD ORDERABLES Final Resul t Performing Organization Address [facility] Co de Phone Number [facility] Department [place] [address] * (ABNORMAL) Hemoglobin A1c (05/04/2023 10:06 AM TOOTH POLISHER) Hgb A1C 8.1(H) 4.0 - 5.6 % [facility] Estimated Average Glucose 186 mg/dL [facility] Comment: The ADA recommends reporting an estimated Average Glucose (eAG) with all Hemoglobin A1c results using the equation derived from a study of 507 normal and diabetic adults. ??Minority populations were underrepresented and children were not included. ?? (Diabetes Care 2020; 43(S1): S66-S76). ??The eAG is not equivalent to a fasting glucose. Blood 05/04/2023 10:0 6 AM TOOTH POLISHER 05/04/2023 10:57 AM TOOTH POLISHER us Gautam Cope MD LAB BLOOD ORDERABLES Final Resul t [facility] Department [place] [address] documented in this encounter Visit Diagnoses Diagnosis Prostate cancer (HCC) Malignant neoplasm of prostate documented in this encounter Care Teams Barrel Rifler Hook Relationship Specialty Start Date End Date Kraig Ching MD [address] [place] [address] PCP - General 07/10/16 Gautam Cope MD [address] [place] [address] Medical Oncologist/Assembly Machine Operator Medical Oncology 08/18/18 Tramaine Roe MD [address] [place] [address] Referring Physician Urology 08/18/18 Sukhwinder Uribe MD [address] [place] [address] Consulting Physician Urology 08/18/18 Shay Guillermo MD [address] [facility] [address] [place] [address] Referring Physician Urology 08/18/18 Marsha Landis RN Registered Nurse 11/17/18 documented as of this encounter
--- OUTSIDE RECORDS SUMMARY | 2024-03-31 11:25 | XMS_ITS | Encounter Summary ---
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] Procedures SD XCAPSL CTRC RMVL INSJ IO LENS PROSTH W/O ECP EXTRACTION CATARACT - PHACOEMULSIFICATION AND LENS IMPLANT Referral ID Status Reason Start Date Expiration Date Visits Re quested Visits Authorized [id number] 1 1 Encounter Details Date Type Department Care Team (Latest Contact Info) Description 05/19/2023 9:05 AM PERIANESTHESIA MANAGER - 05/19/2023 9:40 AM PERIANESTHESIA MANAGER Surgery [facility] Surgery at [facility] [address] [place] [address] Higinio Foley MD [address] [facility] [address] [place] [address] EXTRACTION CATARACT - PHACOEMULSIFICATION AND LENS IMPLANT Surgery Details Date/Time Status Location OR Service Patient Class Case Class Case Type Trauma Case? 05/19/2023 9:05 AM Posted [facility] Operating Room [place] OR 2 Ophthalmology Outpatient [...] on file Legal Sex Male 4:46 PM PERIANESTHESIA MANAGER Gender Identity Not on file Sexual Orientation Not on file documented as of this encounter Last Filed Vital Signs Vital Sign Reading Time Taken Comments Blood Pressure 150/61 05/19/2023 9:40 AM PERIANESTHESIA MANAGER Pulse 67 05/19/2023 9:40 AM PERIANESTHESIA MANAGER Temperature 36.2 ??C (97.2 ??F) 05/19/2023 9:30 AM CS T Respiratory Rate 16 05/19/2023 9:40 AM PERIANESTHESIA MANAGER Oxygen Saturation 97% 05/19/2023 9:40 AM PERIANESTHESIA MANAGER Inhaled Oxygen Concentration - - Weight 96.6 kg (213 lb) 04/30/2023 12:15 PM PERIANESTHESIA MANAGER Height 179.1 cm (5' 10.5 ) 04/30/2023 12:[address] Body Mass Index 30.13 04/30/2023 12:15 PM PERIANESTHESIA MANAGER documented in this encounter Discharge Instructions * Discharge Instructions* Higinio Foley MD - 05/19/2023 9:32 AM PERIANESTHESIA MANAGER POST- OPERATIVE INSTRUCTIONS 1. Lie on the [...] NOT NORMAL, and should be reported immediately. ANESTHESIA MANAGER * Attachments The following attachments cannot be sent through Care Everywhere. * [facility] PATHWAY TO EXCELLENT CARE AFTER SURGERY documented [...] kidney disease) stage 3, GFR 30-59 ml/min ([facility]) Take 1 tablet (25 mg total) [...] EXTRACTION CATARACT - PHACOEMULSIFICATION AND LENS IMPLANT ANESTHESIA MANAGER Source Note - Higinio Foley MD - 05/13/2023 4:40 PM PERIANESTHESIA MANAGER This patient is a 82 y/o WM [...] cataract OS Plan: Proceed with phaco/IOL OS ANESTHESIA MANAGER * Higinio Foley MD - 05/13/2023 4:40 [...] cataract OS Plan: Proceed with phaco/IOL OS ANESTHESIA MANAGER documented in this encounter Miscellaneous Notes * [...] to outpatient recovery i n good condition. ANESTHESIA MANAGER * Brief Op Note - Higinio Foley MD - 05/19/2023 9:14 AM CST Operative Progress Note Surgical Team: Surgeon(s) and Role: * Higinio Foley MD - Primary Anesthesiologist: Beau Minaya MD PRODUCT SAFETY LEAD: Wyatt Zavaleta CRNA Hay Stacker Operator: Tom Renner RN; Tom Vanessa RN Scrub: [...] Implant Name Type Inv. Item Serial No. Director Consumer Affairs Lot No. LRB No. Used Action [employer] Lens Iol CNA0t0.200 Clareon Uva Autonom CNA0T0.200 - [id number] - [id number] [employer] Lens Iol CNA0t0.200 [employer] CNA0T0.200 [id number] [employer] Left 1 Implanted Blood/Blood Products Transfused: 0 mls Complications: None Condition on Discharge from the operating room was stable Higinio Foley MD Date: 05/19/2023 Time: 9:30 AM No Resident involved on case ANESTHESIA MANAGER * Pre-Procedure Instructions - Ladi Vásquez NP - 05/13/2023 5:50 PM CST [facility] CPAP Clinic Location: [facility] The night before your surgery: [...] with COVID-19. You test positive for COVID-19. ANESTHESIA MANAGER * Perioperative Nursing Note - Rafaela Roe RN - 04/30/2023 12:24 PM PERIANESTHESIA MANAGER [place] for Preoperative Assessment and Planning Perioperative Nursing Note Telephone Preoperative Evaluation ([facility]) - TELEPHONE ONLY, NO PHYSICAL EXAM Date: [...] expects to be discharged to:: Private residence (Train Director and radiation therapy technician: ) SUPERVISOR FUSING ROOM NO ADDITIONAL COMMENTS/ FOLLOW UP ANESTHESIA MANAGER * Pre-Procedure Instructions - Rafaela Roe RN - 04/30/2023 12:21 PM PERIANESTHESIA MANAGER [facility] (CPAP) [...] remove nail coverings, artificial nails and nail maltese prior to the day of surgery. You should leave your valuables and any jewelry at home. No metal or piercings are allowed in the operating room. You should bring your insurance card, a photo ID (example: Train Director's License) and a method of payment for [...] If you are having surgery at [facility], please arrive on the day of surgery [...] Remove nail coverings, artificial nails and nail maltese. Place clean linens on your bed the [...] questions, please call the CPAP Staff at [phone], Wednesday-Wednesday 8am-4:30pm. All patients should read the below section: COVID 19 Updates & Visitor Policy: Please access [email or web address] for the most updated information. Information on [facility] & the Orthopedic Center: Please view [email or web address] (Patient & Visitor Information) for additional details regarding Advanced Directive forms, AWARE, directions, parking information, lodging, Internet access, dining and more. Information on [facility] or [facility] Surgery [place] ([facility]): Please view [email or web address] (Patient and Visitor Information) for parking/directions and more. For MyChart information, to activate account or password recovery, please go to [email or web address] or call [phone] (toll-free: [phone]), Wed- Wednesday 8am-5pm. Information for Suicide Prevention: National Suicide Prevention Lifeline (2-085- 378-XQAT (8105)) or call or text 285. Chat resources: [email or web address]. Surgery Times: For patients having surgery @ [facility] or [facility] [place] ([facility]), if your surgeon's office has not notified you of your surgery time by NOON THE BUSINESS DAY BEFORE your surgery, please call [phone] and ask for your surgeon's office Dr. Foley. The [facility] for Preoperative Assessment & Planning (CPAP) does not provide arrival times for the day of surgery or provide the duration of surgery. This information is provided by your surgeon'soffice or by the center where you are having surgery. We appreciate your understanding. ANESTHESIA MANAGER documented in this encounter Plan of [...] Chronic Care Management No change(03/23 1:47 PM PERIANESTHESIA MANAGER) No Ingrid Oden, RN Note: Problem: [...] GLUCOSE DEVICE Routine 05/19/2023 9 :36 AM PERIANESTHESIA MANAGER EXTRACTION CATARACT - PHACOEMULSIFICATION AND LENS IMPLANT 05/19/2023 9:06 AM PERIANESTHESIA MANAGER Combined forms of age-related cataract of both eyes POCT GLUCOSE DEVICE Routine 05/19/2023 8 :20 AM PERIANESTHESIA MANAGER documented in this encounter Results * POCT glucose (05/19/2023 9:36 AM PERIANESTHESIA MANAGER) Glucose, POC 114 70 - 199 mg/dL Glucose comment 1 Glu2: RN/MD Notified [facility] Blood 05/19/2023 9:36 AM PERIANESTHESIA MANAGER 05/19/2023 9:36 AM PERIANESTHESIA MANAGER us Higinio Foley MD LAB POCT ORDERABLES - DEVIC E Final Result Performing Organization Address [facility] Co de Phone Number [facility] [place] [address] * POCT glucose (05/19/2023 8:20 AM PERIANESTHESIA MANAGER) Glucose, POC 113 70 - 199 mg/dL Blood 05/19/2023 8:20 AM PERIANESTHESIA MANAGER 05/19/2023 8:20 AM PERIANESTHESIA MANAGER us Higinio Foley MD LAB POCT ORDERABLES - DEVIC E Final Result Performing Organization Address [facility] Co de Phone Number [facility] [place] [address] documented in this encounter Visit Diagnoses Diagnosis [...] at 0901, Intra-Op Given 05/19/2023 9:01 AM PERIANESTHESIA MANAGER 15 mL BSS Plus-lidocaine 0.375%-EPINEPHrine 0.25 mg (Steffi Kelley) preservative free ophthalmic solution (total volume 1 mL) 1 mL, intracameral LEFT, Once, On Wed05/19/23 at 0930, For 1 dose, Intra-Op, Have available in the OR for surgeon administration in the left eye. Given 05/19/2023 9:01 AM PERIANESTHESIA MANAGER 0.4 mL Carrier Fluids for Secondary Infusion [...] During Ocular Surgery Given 05/19/2023 8:31 AM PERIANESTHESIA MANAGER 0.3 mL EPINEPHrine 0.3 mg in balanced salt soln no.2 irrig. (BSS) 500 mL irrigation solution As needed, Starting on Wed05/19/23 at 0902, Intra-Op Given 05/19/2023 9:02 AM PERIANESTHESIA MANAGER 0.3 mL Left Eye Lactated Ringer's (LR) infusion 30 mL/hr, intravenous, Continuous, Starting on Wed05/19/23 at 0845, Pre-Op lidocaine 1%, BUPivacaine 0.375% preservative free ophthalmic solution (total volume 5 mL) 5 mL, periocular LEFT, Once, On Wed05/19/23 at 0845, For 1 dose, Pre-Op/Floor, RETROBULBAR Given 05/19/2023 9:00 AM PERIANESTHESIA MANAGER 5 mL lidocaine 1%, BUPivacaine 0.375% preservative free ophthalmic solution (total volume 5 mL) 5 mL, periocular LEFT, Once, On Wed05/19/23 at 0845, For 1 dose, Pre-Op/Floor, FACIAL Given 05/19/2023 9:00 AM PERIANESTHESIA MANAGER 5 mL moxifloxacin (VIGAMOX) 0.5 % ophthalmic solution As needed, Starting on Wed05/19/23 at 0902, Intra-Op Given 05/19/2023 9:02 AM PERIANESTHESIA MANAGER 6 drops povidone-iodine (BETADINE PREP) 5 % ophthalmic solution As needed, Starting on Wed05/19/23 at 0902, Intra-Op Given 05/19/2023 9:02 AM PERIANESTHESIA MANAGER 30 mL prednisoLONE acetate (PRED FORTE) 1 % ophthalmic suspension As needed, Starting on Wed05/19/23 at 0903, Intra-Op Given 05/19/2023 9:03 AM PERIANESTHESIA MANAGER 6 drops Left Eye sodium chloride 0.9% [...] Recently Administered Medications Times are shown in PERIANESTHESIA MANAGER. Scheduled Medication Order 05/17/2023 05/18/2023 05/19/2023 BSS [...] 10/2023 documented in this encounter Care Teams Airbrush Artist Photography Relationship Specialty Start Date End Date Kraig Ching MD [address] [place] [address] PCP - General 07/10/16 PicGautam serrato MD [address] [place] [address] Medical Oncologist/Reflexologist Medical Oncology 08/18/18 Tramaine Roe MD [address] [place] [address] Referring Physician Urology 08/18/18 Sukhwinder Uribe MD [address] [place] [address] Consulting Physician Urology 08/18/18 Shay Guillermo MD [address] [facility] [facility] [place] [address] Referring Physician Urology 08/18/18 Marsha Landis, RN Registered Nurse 11/17/18 documented as of this encounter
--- OUTSIDE RECORDS SUMMARY | 2024-03-31 11:25 | XMS_ITS | Encounter Summary ---
Author Organization [facility] Address [address] [place] [address] Phone Care Team Providers Care Graduate Assistant Name Role Phone Kraig Ching MD Primary Care Provider Gautam Cope MD Unavailable Tramaine Roe MD Unavailable [phone] Sukhwinder Uribe MD Unavailable Shay Guillermo MD Unavailable [phone] Marsha Landis RN Unavailable Unavailab le Encounter Details Date Type Department Care Team (Late st Contact Info) Description 04/27/2023 Orders Only [facility] Oncology [address] [facility] Advanced Medicine 7th [place] [address] [place] [address] Gautam Cope MD [address] [facility] [address] [place] [address] Social History Tobacco Use Types Packs/Day Years [...] on file Legal Sex Male 4:46 PM BROADCAST OPERATIONS ENGINEER Gender Identity Not on file Sexual [...] Chronic Care Management No change(03/23 1:47 PM BROADCAST OPERATIONS ENGINEER) No Ingrid Oden, SHEA Note: Problem: Chronic Pain Goals: 1. Minimize further functional decline 2. Maximize quality of life 3. Control pain Strategies: - Activity/exercise program recommendation - Conservative stepwise pain medicine strategy with multi-disciplinary approach - Recommend healthy lifestyle strategies and compensatory methods as needed documented as of this encounter Visit Diagnoses Not on filedocumented in this encounter Care Teams Graduate Assistant Relationship Specialty Start Date End Date Kraig Ching MD [address] [facility] [address] [place] [address] PCP - General 07/10/16 Gautam Cope MD [address] [facility] [address] [place] [address] Medical Oncologist/Pond Supervisor Medical Oncology 08/18/18 Tramaine Roe MD [address] [facility] [address] [place] [address] Referring Physician Urology 08/18/18 Sukhwinder Uribe MD [address] [facility] [address] [place] [address] Consulting Physician Urology 08/18/18 Shay Guillermo MD [address] [facility] [address] [place] [address] Referring Physician Urology 08/18/18 Marsha Landis, RN Registered Nurse 11/17/18 documented as of this encounter
--- OUTSIDE RECORDS SUMMARY | 2024-03-31 11:25 | XMS_ITS | Encounter Summary ---
Author Organization [facility] Healthcare Address [address] [place] [address] Care Team Providers Care Community Sports Coordinator Name Role Phone Kraig Ching MD Primary Care Provider [phone] Gautam Cope MD Unavailable Tramaine Roe MD Unavailable [phone] Sukhwinder Uribe MD Unavailable [phone] Shay Guillermo MD Unavailable [phone] Marsha Landis RN Unavailable Unavailab le Encounter Details Date Type Department Care Team (Latest Contact Info) Description 03/08/2023 11:55 AM ANIMAL RESEARCHER - 03/08/2023 11:59 PM ANIMAL RESEARCHER Hospital Encounter [facility] [address] [place] [address] Discharge Disposition: Discharge to home [...] file Legal Sex Male 4:46 PM ANIMAL RESEARCHER Gender Identity Not on file Sexual Orientation [...] disease) stage 3, GFR 30-59 ml/min ([facility]) TAKE 1 TABLET(12.5 MG) BY MOUTH [...] without long-term current use of insulin ([facility]) TAKE 1 TABLET BY MOUTH DAILY [...] Care Management No change(03/23 1:47 PM ANIMAL RESEARCHER) No Ingrid Oden, RN Note: Problem: Chronic Pain Goals: 1. Minimize further functional decline 2. Maximize quality of life 3. Control pain Strategies: - Activity/exercise program recommendation - Conservative stepwise pain medicine strategy with multi-disciplinary approach - Recommend healthy lifestyle strategies and compensatory methods as needed documented as of this encounter Visit Diagnoses Not on filedocumented in this encounter Care Teams Community Sports Coordinator Relationship Specialty Start Date End Date Kraig Ching MD [address] [place] [address] PCP - General 07/10/16 Gautam Cope MD [address] [place] [address] Medical Oncologist/Sulfuric Acid Plant Operator Medical Oncology 08/18/18 Tramaine Roe MD [address] [place] [address] Referring Physician Urology 08/18/18 Sukhwinder Uribe MD [address] [place] [address] Consulting Physician Urology 08/18/18 Shay Guillermo MD [address] [place] [address] Referring Physician Urology 08/18/18 Marsha Landis, RN Registered Nurse 11/17/18 documented as of this encounter
--- OUTSIDE RECORDS SUMMARY | 2024-03-31 11:25 | XMS_ITS | Encounter Summary ---
Author Organization [facility] Address [address] [place] [address] Phone Care Team Providers Care Sandblaster Stone Name Role Phone Kraig Ching MD Primary Care Provider [phone] Gautam Cope MD Unavailable Tramaine Roe MD Unavailable [phone] Sukhwinder Uribe MD Unavailable [phone] Shay Guillermo MD Unavailable [phone] Marsha Landis RN Unavailable Unavailab le Encounter Details Date Type Department Care Team (Late st Contact Info) Description 02/19/2023 Telephone [facility] Cardiology [facility] Advanced Medicine 8th [place] [address] [place] [address] Kavitha Awad Social History Tobacco [...] file Legal Sex Male 4:46 PM SOLE SEWER HAND Gender Identity Not on file Sexual Orientation Not on file documented as of this encounter Miscellaneous Notes * Telephone Encounter - Kailyn Rodríguez - 02/19/2023 10:19 AM CST Requested from [facility]. All other records in EPIC, EKG under media SEWER HAND * Telephone Encounter - Kavitha Awad - 02/19/2023 10:03 AM CST Diagnosis/Reason for Appointment: Abnormal EKG Referring Physician: JELLY LOVE Ref If Referring MD is not PCP, list specialty: Triage Questions Yes No Who/Where/When/Notes Have you ever been diagnosed with cancer, or undergone cancer treatments? [x] [] If 'Yes', Schedulefirst available with Cardio-Oncology If yes where were you treated? Prostate Cancer Currently at [place] Have you ever seen a Digital Asset Specialist in an office setting? [] [x] IF [...] hospitalized for ANY cardiac issue? [x] [] [facility] in 2019 Have you ever [...] where and when was device put in? Greenhouse Transplanter? ([employer], [employer], [employer]) Appointment Date: 03/18 Provider: Dr. Albert Location: [facility] [x] Confirm appt date, time, provider and location. [x] Advise pt to arrive 15- 20 min early. [x] Advise patient to bring medications/list, photo ID and insurance card [x] Advise of New PatientPacket being mailed to them. SEWER HAND documented in this encounter Plan of [...] Care Management No change(03/23 1:47 PM SOLE SEWER HAND) No Ingrid Oden RN Note: Problem: Chronic Pain Goals: 1. Minimize further functional decline 2. Maximize quality of life 3. Control pain Strategies: - Activity/exercise program recommendation - Conservative stepwise pain medicine strategy with multi-disciplinary approach - Recommend healthy lifestyle strategies and compensatory methods as needed documented as of this encounter Visit Diagnoses Not on filedocumented in this encounter Care Teams Sandblaster Stone Relationship Specialty Start Date End Date Kraig Ching MD [address] [facility] [address] [place] [address] PCP - General 07/10/16 Gautam Cope MD [address] [facility] [address] [place] [address] Medical Oncologist/Inside Sales Coordinator Medical Oncology 08/18/18 [place] [address] [place] [address] [address] [place] [address] Referring Physician Urology 08/18/18 Sukhwinder Uribe MD [address] [facility] [address] [place] [address] Consulting Physician Urology 08/18/18 [place] [address] [place] [address] [address] [place] [address] Referring Physician Urology 08/18/18 Marsha Landis, RN Registered Nurse 11/17/18 documented as of this encounter
--- OUTSIDE RECORDS SUMMARY | 2024-03-31 11:25 | XMS_ITS | Encounter Summary ---
Author Organization [facility] Healthcare Address [address] [place] [address] Care Team Providers Care Welfare Eligibility Interviewer Name Role Phone Kraig Ching MD Primary Care Provider [phone] Gautam Cope MD Unavailable Tramaine Roe MD Unavailable [phone] Sukhwinder Uribe MD Unavailable [phone] Shay Guillermo MD Unavailable [phone] Marsha Landis RN Unavailable Unavailab le Reason [...] Expiration Date Visits Re quested Visits Authorized [id number] 1 1 Encounter Details Date Type Department Care Team (Latest Contact Info) Description 05/19/2023 7:57 AM MAGNETIC TAPE WINDER - 05/19/2023 10:14 AM [facility] Hospital Encounter [facility] Surgery at [facility] Advanced Medicine [address] [place] [address] Higinio Foley MD [address] [facility] [address] [place] [address] Combined forms of age-related cataract of both [...] on file Legal Sex Male 4:46 PM MAGNETIC TAPE WINDER Gender Identity Not on file Sexual Orientation Not on file documented as of this encounter Last Filed Vital Signs Vital Sign Reading Time Taken Comments Blood Pressure 150/61 05/19/2023 9:40 AM MAGNETIC TAPE WINDER Pulse 67 05/19/2023 9:51 AM MAGNETIC TAPE WINDER Temperature 36.2 ??C (97.2 ??F) 05/19/2023 9:30 AM CS T Respiratory Rate 18 05/19/2023 9:50 AM MAGNETIC TAPE WINDER Oxygen Saturation 97% 05/19/2023 9:50 AM MAGNETIC TAPE WINDER Inhaled Oxygen Concentration - - Weight 96.6 kg (213 lb) 04/30/2023 12:15 PM MAGNETIC TAPE WINDER Height 179.1 cm (5' 10.5 ) 04/30/2023 12:[address] Body Mass Index 30.13 04/30/2023 12:15 PM MAGNETIC TAPE WINDER documented in this encounter Discharge Instructions * Discharge Instructions* Higinio Foley MD - 05/19/2023 9:32 AM MAGNETIC TAPE WINDER POST- OPERATIVE INSTRUCTIONS 1. Lie on the [...] NOT NORMAL, and should be reported immediately. ETIC TAPE WINDER * Attachments The following attachments cannot be sent through Care Everywhere. * [facility] PATHWAY TO EXCELLENT CARE AFTER [...] stage 3, GFR 30-59 ml/min ([facility]) Take 1 tablet (25 mg [...] long-term current use of insulin ([facility]) TAKE 1 TABLET BY MOUTH [...] EXTRACTION CATARACT - PHACOEMULSIFICATION AND LENS IMPLANT ETIC TAPE WINDER Source Note - Higinio Foley MD - 05/13/2023 4:40 PM MAGNETIC TAPE WINDER This patient is a 82 y/o WM [...] cataract OS Plan: Proceed with phaco/IOL OS ETIC TAPE WINDER * Higinio Foley MD - 05/13/2023 4:40 [...] cataract OS Plan: Proceed with phaco/IOL OS ETIC TAPE WINDER documented in this encounter Miscellaneous Notes * [...] to outpatient recovery i n good condition. ETIC TAPE WINDER * Brief Op Note - Higinio Foley MD - 05/19/2023 9:14 AM CST Operative Progress Note Surgical Team: Surgeon(s) and Role: * Higinio Foley MD - Primary Anesthesiologist: Beau Minaya MD TWILL CUTTER: Wyatt Zavaleta CRNA Vertical Roll Operator: Tom Renner RN; Tom Vanessa RN [...] Implant Name Type Inv. Item Serial No. Ingredient Specialist Lot No. LRB No. Used Action [employer] Lens Iol CNA0t0.200 [employer] CNA0T0.200 - [id number] - [id number] [employer] Lens Iol CNA0t0.200 [employer] CNA0T0.200 [id number] [employer] Left 1 Implanted Blood/Blood Products Transfused: 0 mls Complications: None Condition on Discharge from the operating room was stable Higinio Foley MD Date: 05/19/2023 Time: 9:30 AM No Resident involved on case ETIC TAPE WINDER * Pre-Procedure Instructions - Ladi Vásquez NP - 05/13/2023 5:50 PM CST [facility] CPAP Clinic Location: [facility] The night before your surgery: * [...] with COVID-19. You test positive for COVID-19. ETIC TAPE WINDER * Perioperative Nursing Note - Rafaela Roe RN - 04/30/2023 12:24 PM MAGNETIC TAPE WINDER [facility] Perioperative Nursing Note Telephone Preoperative Evaluation ([facility]) - TELEPHONE ONLY, NO PHYSICAL [...] expects to be discharged to:: Private residence (Machine Whitener and circuitry negative inspector: ) MATERIAL CHECKER NO ADDITIONAL COMMENTS/ FOLLOW UP ETIC TAPE WINDER * Pre-Procedure Instructions - Rafaela Roe RN - 04/30/2023 12:21 PM MAGNETIC TAPE WINDER [facility] (CPAP) [...] remove nail coverings, artificial nails and nail montenegrin prior to the day of surgery. You should leave your valuables and any jewelry at home. No metal or piercings are allowed in the operating room. You should bring your insurance card, a photo ID (example: Machine Whitener's License) and a method of payment for [...] Chart. If you are having surgery at [facility], please arrive on the day [...] Remove nail coverings, artificial nails and nail montenegrin. Place clean linens on your bed the [...] questions, please call the CPAP Staff at [phone], Wednesday-Wednesday 8am-4:30pm. All patients should read the below section: COVID 19 Updates & Visitor Policy: Please access [email or web address] for the most updated information. Information on [facility]: Please view [email or web address] (Patient & Visitor Information) for additional details regarding Advanced Directive forms, AWARE, directions, parking information, lodging, Internet access, dining and more. Information on [facility] or [facility] [place] ([facility]): Please view [email or web address] (Patient and Visitor Information) for parking/directions and more. For MyChart information, to activate account or password recovery, please go to [email or web address] or call [phone] (toll-free: [phone]), Wed- Wednesday 8am-5pm. Information for Suicide Prevention: National Suicide Prevention Lifeline (7-678- 189-YXRO (8155)) or call or text [employer]. Chat resources: oDesk.Acheive CCA. Surgery Times: For patients having surgery @ [facility] or [facility] [place] ([facility]), if your surgeon's office has not notified you of your surgery time by NOON THE BUSINESS DAY BEFORE your surgery, please call [phone] and ask for your surgeon's office Dr. Foley. The [facility] Planning ([facility]) does not provide arrival times for the day of surgery or provide the duration of surgery. This information is provided by your surgeon'soffice or by the center where you are having surgery. We appreciate your understanding. ETIC TAPE WINDER documented in this encounter Plan of Treatment [...] to monitor diabetes and kidney status, etc. [facility] Chronic Pain Care Plan Chronic Care Management No change(03/23 1:47 PM MAGNETIC TAPE WINDER) No Ingrid Oden, RN Note: Problem: Chronic [...] GLUCOSE DEVICE Routine 05/19/2023 9 :36 AM MAGNETIC TAPE WINDER EXTRACTION CATARACT - PHACOEMULSIFICATION AND LENS IMPLANT 05/19/2023 9:06 AM MAGNETIC TAPE WINDER Combined forms of age-related cataract of both eyes POCT GLUCOSE DEVICE Routine 05/19/2023 8 :20 AM MAGNETIC TAPE WINDER documented in this encounter Results * POCT glucose (05/19/2023 9:36 AM MAGNETIC TAPE WINDER) Glucose, POC 114 70 - 199 mg/dL Glucose comment 1 Glu2: RN/MD Notified [facility] Blood 05/19/2023 9:36 AM MAGNETIC TAPE WINDER 05/19/2023 9:36 AM MAGNETIC TAPE WINDER Higinio Foley MD LAB POCT ORDERABLES - DEVIC E Final Result Performing Organization Address [facility] de Phone Number [facility] [place] [address] * POCT glucose (05/19/2023 8:20 AM MAGNETIC TAPE WINDER) Glucose, POC 113 70 - 199 mg/dL Blood 05/19/2023 8:20 AM MAGNETIC TAPE WINDER 05/19/2023 8:20 AM MAGNETIC TAPE WINDER Higinio Foley MD LAB POCT ORDERABLES - DEVIC E Final Result Performing Organization Address [facility] de Phone Number [facility] [place] [address] documented in this encounter Visit Diagnoses Diagnosis [...] During Ocular Surgery Given 05/19/2023 8:31 AM MAGNETIC TAPE WINDER 0.3 mL Lactated Ringer's (LR) infusion 30 mL/hr, intravenous, Continuous, Starting on Wed05/19/23 at 0845, Pre-Op lidocaine 1%, BUPivacaine 0.375% preservative free ophthalmic solution (total volume 5 mL) 5 mL, periocular LEFT, Once, On Wed05/19/23 at 0845, For 1 dose, Pre-Op/Floor, RETROBULBAR Given 05/19/2023 9:00 AM MAGNETIC TAPE WINDER 5 mL lidocaine 1%, BUPivacaine 0.375% preservative free ophthalmic solution (total volume 5 mL) 5 mL, periocular LEFT, Once, On Wed05/19/23 at 0845, For 1 dose, Pre-Op/Floor, FACIAL Given 05/19/2023 9:00 AM MAGNETIC TAPE WINDER 5 mL sodium chloride 0.9% flush 0.5-20 [...] Recently Administered Medications Times are shown in MAGNETIC TAPE WINDER. Scheduled Medication Order 05/17/2023 05/18/2023 05/19/2023 BSS [...] 10/2023 documented in this encounter Care Teams Welfare Eligibility Interviewer Relationship Specialty Start Date End Date Kraig Ching MD [address] [facility] [address] [place] [address] PCP - General 07/10/16 [place], MD Gautam [id number] [place] [address] Medical Oncologist/Hvac Project Engineer Medical Oncology 08/18/18 Tramaine Roe MD [address] [place] [address] Referring Physician Urology 08/18/18 Sukhwinder Uribe MD [address] [place] [address] Consulting Physician Urology 08/18/18 Shay Guillermo MD [id number] [place] [address] Referring Physician Urology 08/18/18 Marsha Landis RN Registered Nurse 11/17/18 documented as of this encounter
--- OUTSIDE RECORDS SUMMARY | 2024-03-31 11:25 | XMS_ITS | Encounter Summary ---
Author Organization [facility] Address [address] [place] [address] Phone Care Team Providers Care Journal Clerk Name Role Phone Kraig Ching MD Primary Care Provider [phone] Gautam Cope MD Unavailable Tramaine Roe MD Unavailable [phone] Sukhwinder Uribe MD Unavailable Shay Guillermo MD Unavailable [phone] Marsha Landis RN Unavailable Unavailab le Encounter Details Date Type Department Care Team (Late st Contact Info) Description 03/12/[address] [facility] Oncology [address] [facility] Advanced Medicine 7th [place] [address] [place] [address] Gautam Cope MD [address] [facility] [address] [place] [address] Social History Tobacco Use Types Packs/Day Years [...] on file Legal Sex Male 4:46 PM HOT DIP PLATING SUPERVISOR Gender Identity Not on file Sexual [...] Chronic Care Management No change(03/23 1:47 PM HOT DIP PLATING SUPERVISOR) No Ingrid Oden, RN Note: Problem: Chronic Pain Goals: 1. Minimize further functional decline 2. Maximize quality of life 3. Control pain Strategies: - Activity/exercise program recommendation - Conservative stepwise pain medicine strategy with multi-disciplinary approach - Recommend healthy lifestyle strategies and compensatory methods as needed documented as of this encounter Visit Diagnoses Not on filedocumented in this encounter Care Teams Journal Clerk Relationship Specialty Start Date End Date Kraig Ching MD [address] [place] [address] PCP - General 07/10/16 Gautam Cope MD [address] [place] [address] Medical Oncologist/Rn Radiology Medical Oncology 08/18/18 Tramaine Roe MD [address] [place] [address] Referring Physician Urology 08/18/18 Sukhwinder Uribe MD [address] [place] [address] Consulting Physician Urology 08/18/18 Shay Guillermo MD [address] [facility] [address] [place] [address] Referring Physician Urology 08/18/18 Marsha Landis, RN Registered Nurse 11/17/18 documented as of this encounter
--- OUTSIDE RECORDS SUMMARY | 2024-03-31 11:25 | XMS_ITS | Encounter Summary ---
Author Organization [facility] Address [address] [place] [address] Phone Care Team Providers Care Statement Services Representative Name Role Phone Kraig Ching MD Primary Care Provider [phone] Gautam Cope MD Unavailable Tramaine Roe MD Unavailable [phone] Sukhwinder Uribe MD Unavailable [phone] Shay Guillermo MD Unavailable [phone] Marsha Landis RN Unavailable Unavailab le Encounter Details Date Type Department Care Team (Late st Contact Info) Description 02/19/2023 Telephone [facility] Ophthalmology [address] [facility] 2nd Floor [address] [place] [address] Janice Goldman Social History Tobacco Use Types [...] on file Legal Sex Male 4:46 PM DIE CUTTER OPERATOR Gender Identity Not on file Sexual [...] when they called to assess him, again. CUTTER OPERATOR documented in this encounter Plan of [...] Chronic Care Management No change(03/23 1:47 PM DIE CUTTER OPERATOR) No Ingrid Oden RN Note: Problem: Chronic Pain Goals: 1. Minimize further functional decline 2. Maximize quality of life 3. Control pain Strategies: - Activity/exercise program recommendation - Conservative stepwise pain medicine strategy with multi-disciplinary approach - Recommend healthy lifestyle strategies and compensatory methods as needed documented as of this encounter Visit Diagnoses Not on filedocumented in this encounter Care Teams Statement Services Representative Relationship Specialty Start Date End Date Kraig Ching MD [address] [place] [address] PCP - General 07/10/16 Gautam Cope MD [address] [facility] [address] [place] [address] Medical Oncologist/Organic Chemistry Professor Medical Oncology 08/18/18 Tramaine Roe MD [address] [place] [address] Referring Physician Urology 08/18/18 Sukhwinder Uribe MD [address] [place] [address] Consulting Physician Urology 08/18/18 Shay Guillermo MD [address] [facility] [address] [place] [address] Referring Physician Urology 08/18/18 Marsha Landis RN Registered Nurse 11/17/18 documented as of this encounter
--- OUTSIDE RECORDS SUMMARY | 2024-03-31 11:25 | XMS_ITS | Encounter Summary ---
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] Procedures MS XCAPSL CTRC RMVL INSJ IO LENS PROSTH W/O ECP EXTRACTION CATARACT - PHACOEMULSIFICATION AND LENS IMPLANT Referral ID Status Reason Start Date Expiration Date Visits Re quested Visits Authorized [id number] 1 1 Encounter Details Date Type Department Care Team (Late st Contact Info) Description 06/09/2023 8:25 AM ELECTRONICS ENGINEER Anesthesia Event [facility] Surgery at [facility] [address] [place] [address] Brett Anthony MD [address] [place], [place] [id number] Vale Campbell, LILIA [address] [facility] [id number] [place], [place] [id number] Anesthesia Record Procedure Summary Procedure Name Responsible [...] Bilateral; Back; 03/14/24 (Retired LDA, Removed/Completed by [employer] with LDA Utility); 1213 (Retired LDA, Removed/Completed by [employer] with LDA Utility) 01/17/19 0000 by Jayla Gibson RN 03/14/24 1213 by Discharge Provider, Automatic RETIRED Wound 03/23/23; 1538; No; Puncture; Mid-line; Buttocks; 03/14/24 (Retired LDA, Removed/Completed by [employer] with LDA Utility); 1213 (Retired LDA, Removed/Completed by [employer] with LDA Utility) 03/23/23 1538 by Kiran Wilson, SHEA 03/14/24 1213 by Discharge Provider, Automatic RETIRED Surgical Site 05/19/23; 0903; Le ft; Eye; 03/14/24 (Retired LDA, Removed/Completed by [employer] with LDA Utility); 1213 (Retired LDA, Removed/Completed [...] file Legal Sex Male 4:46 PM ELECTRONICS ENGINEER Gender Identity Not on file Sexual Orientation Not on file documented as of this encounter OR Notes * Anesthesia Postprocedure Evaluation - Brett Anthony MD - 06/09/2023 9:37 AM CST Patient: David Wei Procedure Summary Date: 06/09/23 Room / Location: [facility] OPERATING ROOM 02 / [facility] Operating Room Anesthesia Start: 824 Anesthesia [...] Nausea/Vomiting status: none No notable events documented. TRONICS ENGINEER * Anesthesia Preprocedure Evaluation - Brett Anthony MD - 06/02/2023 11:57 AM CST Images from the original note were not included. [facility] Preoperative Assessment and Planning Preoperative Evaluation Record Evaluation type/location: TPAP from [facility] Planned procedure site: [facility] OR Date: 06/02/23 NOTE: This note represents [...] and non-sustained V-tach. Pertinent negatives: CAD ; SC ; CABG ; valve replacement; atrial fibrillation; pacemaker/ICD; PVD; DVT/PE; negative for CHF; drug-eluting stent(s); bare metal stent(s) and coronary angioplasty Comments: Evaluated by research and insights executive, Dr Albert-- Last OV 03/18/2023 Respiratory + [...] negatives: dialysis and nephrolithiasis Comments: Followed by stove refinisher, Dr Guerrero-- Last 2022 Musculoskeletal/Pain + Chronic [...] provided by telephone and electronically sent via readeo. Patient verbalized understanding of instructions. 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 chronic kidney disease ([facility]) 10/15/2021 Gastroesophageal reflux disease 04/08/2021 Secondary hyperparathyroidism of renal origin ([facility]) 09/15/2019 Spinal stenosis of lumbar region with neurogenic claudication 09/09/2018 Sciatica, left side 09/09/2018 Chronic bilateral low back pain with bilateral sciatica 09/09/2018 Prostate cancer ([facility]) 09/06/2018 SBO (small bowel obstruction) ([facility]) ([facility]) 07/15/2018 Chronic diastolic heart failure ([facility]) 01/25/2018 Shortness of breath 01/25/2018 Hypertensive kidney disease with chronic kidney disease stage III ([facility]) 11/25/2017 Duodenal ulcer 11/25/2017 PAF (paroxysmal atrial fibrillation) ([facility]) ([facility]) 10/22/2017 COPD (chronic obstructive pulmonary disease) ([facility]) 10/22/2017 Chronic kidney disease, stage 3b ([facility]) 10/22/2017 Allergy to statin medication 08/30/2017 Tobacco use 08/30/2017 Hyperlipidemia associated with type 2 diabetes mellitus ([facility]) 01/15/2017 Inflamed seborrheic keratosis 10/03/2014 Actinic keratosis 10/03/2014 Benign neoplastic disease 10/03/2014 Angioma 10/03/2014 Vitamin D deficiency 12/15/2013 Hypertension 01/12/2012 Type 2 diabetes mellitus without complication, with long-term current use of insulin ([facility]) ([facility]) 01/12/2012 Hyperlipidemia 01/12/2012 Past Medical History: Diagnosis Date Anemia Arrhythmia Chronic pain disorder Diabetes ([facility]) Diverticulitis Esophageal stricture GERD (gastroesophageal reflux disease) [...] 1.1 % cream Accu-Chek Fastclix Lancet Drum [facility] Accu-Chek Guide test strips strip ketorolac (ACULAR) [...] Vascular studies: N/A Other: Event Monitor 03/18/2023-04/11/2023-- Computer Game Designer Review of Transmissions: 25 day study of [...] [facility]. labeled MONITOR STRIPS PDF . CXR [...] Medication protocol when under care of a CROCHETER Planned anesthesia: MAC Induction: Induction: intravenous. Postoperative Plan: No plan for postoperative opioid use. No postoperative mechanical ventilation intended. Patient's planned disposition post procedure is Outpatient. Informed Consent: Discussed plan with CROCHETER. Anesthesia plan and risks discussed with patient. Consent and Attending signature: I and/or my designee have discussed the anesthesia plan, benefits, possible alternatives, parental presence at time of induction (if indicated), and clinically relevant risks that may include dental injury, unintentional awareness, and/or other complications. The patient and/or parent/legal guardian understand, and agree to proceed. All questions answered. TRONICS ENGINEER TRONICS ENGINEER documented in this encounter Plan of [...] Care Management No change(03/23 1:47 PM ELECTRONICS ENGINEER) No Ingrid Oden, SHEA Note: Problem: [...] Ventricular ArrhythmiasIndications:Ventricular Arrhythmias Given 06/09/2023 8:25 AM ELECTRONICS ENGINEER 40 mg propofoL (DIPRIVAN) 10 mg/mL IV intravenous, As needed, Starting on Wed06/09/23 at 0825, Anesthesia Intra-op New Bag 06/09/2023 8:25 AM ELECTRONICS ENGINEER 40 mg documented in this encounter Care Teams Institutional Research Director Relationship Specialty Start Date End Date Kraig Ching MD [address] [place] [address] PCP - General 07/10/16 Gautam Cope MD [address] [place] [address] Medical Oncologist/Second Shift Supervisor Medical Oncology 08/18/18 Tramaine Roe MD [address] [place] [address] Referring Physician Urology 08/18/18 Sukhwinder Uribe MD [address] [place] [address] Consulting Physician Urology 08/18/18 Shay Guillermo MD [address] [place] [address] Referring Physician Urology 08/18/18 Marsha Landis, RN Registered Nurse 11/17/18 documented as of this encounter
--- OUTSIDE RECORDS SUMMARY | 2024-03-31 11:25 | XMS_ITS | Encounter Summary ---
Author Organization [facility] Address [address] [place] [address] Phone Care Team Providers Care Terrazzo Worker Helper Name Role Phone Kraig Ching MD Primary Care Provider [phone] Gautam Cope MD Unavailable Tramaine Roe MD Unavailable [phone] Sukhwinder Uribe MD Unavailable Shay Guillermo MD Unavailable [phone] Marsha Landis RN Unavailable Unavailab le Reason for Referral * Diagnostic Imaging (Routine) - Closed Specialty Diagnoses / Procedures Referred By Saleem narvaez Referred To Contact Diagnoses Combined forms of age-related cataract of right eye Procedures IOL Biometry - OD - Right Eye Higinio Connolly MD [address] [facility] [address] [place] [address] Phone: tel: fax: [facility] (All Locations) Referral ID Status Reason Start Date Expiration Date Visits Re quested Visits Authorized [id number] Closed 05/28/2023 06/26/2024 1 1 PROJECTS SUPERVISOR Reason for Visit * Reason Comments Post-op - Cataract * Diagnostic Imaging (Routine) - Closed Specialty Diagnoses / Procedures Referred By Saleem narvaez Referred To Contact Diagnoses Combined forms of age-related cataract of right eye Procedures IOL Biometry - OD - Right Eye Higinio Connolly MD [address] [facility] [address] [place] [address] Phone: tel: fax: [facility] (All Locations) Referral ID Status Reason Start Date Expiration Date Visits Re quested Visits Authorized [id number] Closed 05/28/2023 06/26/2024 1 1 Encounter Details Date Type Department Care Team (Late st Contact Info) Description 06/01/2023 8:00 AM WIND PROJECTS SUPERVISOR Office Visit [facility] Ophthalmology [address] [place] [address] Higinio Connolly MD [address] [place], [place] [id number] Pseudophakia of left eye (Primary Dx); Combined [...] on file Legal Sex Male 4:46 PM WIND PROJECTS SUPERVISOR Gender Identity Not on file Sexual [...] to use CNA0T0 with plano target OD. PROJECTS SUPERVISOR documented in this encounter Plan of [...] Chronic Care Management No change(03/23 1:47 PM WIND PROJECTS SUPERVISOR) No Ingrid Oden RN Note: Problem: [...] - RIGHT EYE Routine 06/01/2023 9:26 AM WIND PROJECTS SUPERVISOR Combined forms of age-related cataract of right eye documented in this encounter Results * IOL Biometry - OD - Right Eye (06/01/2023 9:26 AM WIND PROJECTS SUPERVISOR) Anatomical Region Laterality Modality Head Ophthalmic Axial Measurements Narrative 06/01/2023 9:26 AM WIND PROJECTS SUPERVISOR Lens style: CNA0T0. Lens power: +19.5 D. [...] lens, no Posterior capsular opacification Care Teams Terrazzo Worker Helper Relationship Specialty Start Date End Date Kraig Ching MD [address] [facility] [address] [place] [address] PCP - General 07/10/16 Gautam Cope MD [address] [facility] [address] [place] [address] Medical Oncologist/Ground Crew Lines Person Medical Oncology 08/18/18 Tramaine Roe MD [address] [facility] [address] [place] [address] Referring Physician Urology 08/18/18 Sukhwinder Uribe MD [address] [facility] [address] [place] [address] Consulting Physician Urology 08/18/18 Shay Guillermo MD [address] [facility] [address] [place] [address] Referring Physician Urology 08/18/18 Marsha Landis, RN Registered Nurse 11/17/18 documented as of this encounter
--- OUTSIDE RECORDS SUMMARY | 2024-03-31 11:25 | XMS_ITS | Encounter Summary ---
Author Organization [facility] Healthcare Address [address] [place] [address] Care Team Providers Care Commercial Escrow Assistant Name Role Phone Kraig Ching MD Primary Care Provider [phone] Gautam Cope MD Unavailable Tramaine Roe MD Unavailable [phone] Sukhwinder Uribe MD Unavailable [phone] Shay Guillermo MD Unavailable [phone] Marsha Landis RN Unavailable Unavailab le Encounter Details Date Type Department Care Team (Late st Contact Info) Description 04/26/2023 Telephone [facility] [address] [place] [address] Kraig Ching MD [address] [facility] [address] [place] [address] Social History Tobacco Use Types [...] file Legal Sex Male 4:46 PM SENIOR MATERIALS PLANNER Gender Identity Not on file Sexual Orientation Not on file documented as of this encounter Miscellaneous Notes * Telephone Encounter - Concha Pollock - 04/26/2023 11:51 AM CST error OR MATERIALS PLANNER documented in this encounter Plan of Treatment [...] Care Management No change(03/23 1:47 PM SENIOR MATERIALS PLANNER) No Ingrid Oden, SHEA Note: Problem: Chronic Pain Goals: 1. Minimize further functional decline 2. Maximize quality of life 3. Control pain Strategies: - Activity/exercise program recommendation - Conservative stepwise pain medicine strategy with multi-disciplinary approach - Recommend healthy lifestyle strategies and compensatory methods as needed documented as of this encounter Visit Diagnoses Not on filedocumented in this encounter Care Teams Commercial Escrow Assistant Relationship Specialty Start Date End Date Kraig Ching MD [address] [facility] [address] [place] [address] PCP - General 07/10/16 Gautam Cope MD [address] [place] [address] Medical Oncologist/Commission Specialist Medical Oncology 08/18/18 Tramaine Roe MD [address] [facility] [address] [place] [address] Referring Physician Urology 08/18/18 Sukhwinder Uribe MD [address] [facility] [address] [place] [address] Consulting Physician Urology 08/18/18 Shay Guillermo MD [address] [facility] [address] [place] [address] Referring Physician Urology 08/18/18 Marsha Landis, RN Registered Nurse 11/17/18 documented as of this encounter
--- OUTSIDE RECORDS SUMMARY | 2024-03-31 11:25 | XMS_ITS | Encounter Summary ---
Author Organization [facility] Healthcare Address [address] [place] [address] Care Team Providers Care Machinist Bench Name Role Phone Kraig Ching MD Primary Care Provider [phone] Gautam Cope MD Unavailable Tramaine Roe MD Unavailable [phone] Sukhwinder Uribe MD Unavailable [phone] Shay Guillermo MD Unavailable [phone] Marsha Landis RN Unavailable Unavailab le Encounter Details Date Type Department Care Team (Late st Contact Info) Description 03/08/2023 11:45 AM PROJECT MANAGER SENIOR Office Visit [facility] [address] [facility] [address] [place] [address] [place] [address] Kraig Ching MD [address] [facility] [address] [place] [address] Essential hypertension (Primary Dx); Type [...] file Legal Sex Male 4:46 PM PROJECT MANAGER SENIOR Gender Identity Not on file Sexual Orientation Not on file documented as of this encounter Last Filed Vital Signs Vital Sign Reading Time Taken Comments Blood Pressure 134/62 03/08/2023 11:15 AM PROJECT MANAGER SENIOR Pulse 82 03/08/2023 11:15 AM PROJECT MANAGER SENIOR Temperature - - Respiratory Rate 20 03/08/2023 11:15 AM PROJECT MANAGER SENIOR Oxygen Saturation 97% 03/08/2023 11:15 AM PROJECT MANAGER SENIOR Inhaled Oxygen Concentration - - Weight 98 kg (216 lb) 03/08/2023 11:15 AM PROJECT MANAGER SENIOR Height 180.3 cm (5' 11 ) 03/08/2023 11:15 AM PROJECT MANAGER SENIOR Body Mass Index 30.13 03/08/2023 11:15 AM PROJECT MANAGER SENIOR documented in this encounter Ordered Prescriptions Prescription [...] insulin.He reports compliance with oral medications. His [id number] 7.9 on 08/18/22.Diabetes is complicated by hyperlipidemia. [...] ADMINISTER 28 UNITS UNDER THE SKIN DAILY ECT MANAGER SENIOR documented in this encounter Miscellaneous Notes * Assessment & Plan Note - Kraig Ching MD - 03/08/2023 11:40 AM PROJECT MANAGER SENIOR Associated Problem(s): Cataract, left (Resolved 05/28/2023) Agree with cataract surgery. 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 No indication for further testing. ECT MANAGER SENIOR * Assessment & Plan Note - Kraig Ching MD - 03/08/2023 11:17 AM PROJECT MANAGER SENIOR Associated Problem(s): Chronic bilateral low back pain with bilateral sciatica Continue oxycodone. Continue home PT exercises. Advised using a walker. ECT MANAGER SENIOR * Assessment & Plan Note - Kraig Ching MD - 03/08/2023 11:17 AM PROJECT MANAGER SENIOR Associated Problem(s): Gastroesophageal reflux disease Reviewed dietary modifications. Continue PPI. ECT MANAGER SENIOR * Assessment & Plan Note - Kraig Ching MD - 03/08/2023 7:12 AM PROJECT MANAGER SENIOR Associated Problem(s): Type 2 diabetes mellitus with stage 3a chronic kidney disease, with long-term current use of insulin (HCC) Continue current regimen.Limit nephrotoxins.Reviewed creatinine. Avoid NSAIDS. ECT MANAGER SENIOR * Assessment & Plan Note - Kraig Ching MD - 03/08/2023 7:11 AM PROJECT MANAGER SENIOR Associated Problem(s): Hypertension, essential Hypertension is controlled. Continue current regimen. ECT MANAGER SENIOR documented in this encounter Plan of Treatment [...] Care Management No change(03/23 1:47 PM PROJECT MANAGER SENIOR) No Ingrid Oden RN Note: Problem: Chronic [...] Comments HEMOGLOBIN A1C Routine 03/08/2023 11:55 AM PROJECT MANAGER SENIOR Type 2 diabetes mellitus with stage 3a chronic kidney disease, with long-term current use of insulin (HCC) LIPID PANEL Routine 03/08/2023 11:55 AM PROJECT MANAGER SENIOR Hyperlipidemia, unspecified hyperlipidemia type documented in this encounter Results * (ABNORMAL) Lipid panel (03/08/2023 11:55 AM PROJECT MANAGER SENIOR) [facility] Cholesterol 193 30 - 199 mg/dL [facility] Comment: Interpretive Data Ages < [...] revised on 2017. Triglycerides 250(H) <=149 mg/dL [facility] Comment: Interpretive Data Ages < [...] revised on 2017. HDL 36(L) >=40 mg/dL [facility] Comment: Interpretive Data Ages < [...] 2017. LDL, calculated 107 <=129 mg/dL [facility] Comment: Interpretive Data Ages < [...] [facility] Blood 03/08/2023 11:5 5 AM PROJECT MANAGER SENIOR 03/08/2023 3:48 PM PROJECT MANAGER SENIOR us Kraig Ching MD LAB BLOOD ORDERABLES Final Re sult [facility] [place] [address] * (ABNORMAL) Hemoglobin A1c (03/08/2023 11:55 AM PROJECT MANAGER SENIOR) Hgb A1C 8.3(H) 4.0 - 5.6 % [facility] Estimated Average Glucose 192 mg/dL [facility] Comment: The ADA recommends reporting an estimated Average Glucose (eAG) with all Hemoglobin A1c results using the equation derived from a study of 507 normal and diabetic adults. ??Minority populations were underrepresented and children were not included. ?? (Diabetes Care 2020; 43(S1): S66-S76). ??The eAG is not equivalent to a fasting glucose. Blood 03/08/2023 11:5 5 AM PROJECT MANAGER SENIOR 03/08/2023 3:48 PM PROJECT MANAGER SENIOR us Kraig Ching MD LAB BLOOD ORDERABLES Final Re sult [facility] Department [place] [address] documented in this encounter Visit Diagnoses Diagnosis Essential hypertension- Primary Unspecified essential hypertension Type 2 diabetes mellitus with stage 3a chronic kidney disease, with long-term current use of insulin ([facility]) Gastroesophageal reflux disease, unspecified whether esophagitis present [...] documented as of this encounter Care Teams Machinist Bench Relationship Specialty Start Date End Date Kraig Ching MD [address] [facility] [address] [place] [address] PCP - General 07/10/16 Gautam Cope MD [address] [facility] [address] [place] [address] Medical Oncologist/Mate First Medical Oncology 08/18/18 Tramaine Roe MD [address] [facility] [address] [place] [address] Referring Physician Urology 08/18/18 Sukhwinder Uribe MD [address] [facility] [address] [place] [address] Consulting Physician Urology 08/18/18 Shay Guillermo MD [address] [facility] [address] [place] [address] Referring Physician Urology 08/18/18 Marsha Landis, RN Registered Nurse 11/17/18 documented as of this encounter
--- OUTSIDE RECORDS SUMMARY | 2024-03-31 11:25 | XMS_ITS | Encounter Summary ---
Author Organization [facility] Address [address] [place] [address] Phone Care Team Providers Care Salesperson Recreational Vehicles Name Role Phone Kraig Ching MD Primary Care Provider [phone] Gautam Cope MD Unavailable Tramaine Roe MD Unavailable [phone] Sukhwinder Uribe MD Unavailable [phone] Shay Guillermo MD Unavailable [phone] Marsha Landis RN Unavailable Unavailab le Encounter Details Date Type Department Care Team (Late st Contact Info) Description 04/27/2023 Documentation [facility] Oncology [address] [facility] [address] [place] [address] [place] [address] Ladi Bunch RN Social History [...] file Legal Sex Male 4:46 PM MEDICAL INFORMATION OFFICER Gender Identity Not on file Sexual Orientation Not on file documented as of this encounter Nursing Notes * Ladi Bunch RN - 04/27/2023 9:46 AM CST In following up on Mr. Wei's CT of the chest w/o contrast, which was scheduled for today, 04/27/23, it was noticed that the scan had been rescheduled by the patient on 06/15/23. CAL INFORMATION OFFICER documented in this encounter Plan of Treatment [...] Care Management No change(03/23 1:47 PM MEDICAL INFORMATION OFFICER) No Ingrid Oden, SHEA Note: Problem: Chronic Pain Goals: 1. Minimize further functional decline 2. Maximize quality of life 3. Control pain Strategies: - Activity/exercise program recommendation - Conservative stepwise pain medicine strategy with multi-disciplinary approach - Recommend healthy lifestyle strategies and compensatory methods as needed documented as of this encounter Visit Diagnoses Not on filedocumented in this encounter Care Teams Salesperson Recreational Vehicles Relationship Specialty Start Date End Date Kraig Ching MD [address] [place] [address] PCP - General 07/10/16 Gautam Cope MD [address] [place] [address] Medical Oncologist/Forging Engineer Medical Oncology 08/18/18 Tramaine Roe MD [address] [place] [address] Referring Physician Urology 08/18/18 Sukhwinder Uribe MD [address] [facility] [address] [place] [address] Consulting Physician Urology 08/18/18 Shay Guillermo MD [address] [facility] [address] [place] [address] Referring Physician Urology 08/18/18 Marsha Landis, RN Registered Nurse 11/17/18 documented as of this encounter
--- OUTSIDE RECORDS SUMMARY | 2024-03-31 11:25 | XMS_ITS | Encounter Summary ---
Author Organization [facility] [employer] [facility] Address [address] [place] [address] Phone Care Team Providers Care Drafter Apprentice Name Role Phone Kraig Ching MD Primary Care Provider [phone] Gautam Cope MD Unavailable Tramaine Roe MD Unavailable [phone] Sukhwinder Uribe MD Unavailable [phone] Shay Guillermo MD Unavailable [phone] Marsha Landis RN Unavailable Unavailab le Reason for Visit * Consultation (Routine) - Authorized Specialty Diagnoses / Procedures Referred By Saleem narvaez Referred To Contact Oncology Diagnoses Prostate cancer (HCC) Tramaine Roe MD [address] [facility] [address] [place] [address] Phone: tel: fax: Gautam Cope MD [address] [facility]OG[facility], [address] [place] [address] Phone: tel: fax: Referral ID Status Reason Start Date Expiration Date Visits Requested Visits Authorized [id number] Authorized Specialty Services Required 08/15/2018 04/11/2024 99 99 Encounter Details Date Type Department Care Team (Late st Contact Info) Description 05/04/2023 11:00 AM CHEMICAL LABORATORY CHIEF Office Visit [facility] [address] [facility] 7th [place] [address] [place] [id number] Gautam Cope MD [address] [facility] [address] [place] [address] Prostate cancer (HCC) (Primary Dx) Social History [...] on file Legal Sex Male 4:46 PM CHEMICAL LABORATORY CHIEF Gender Identity Not on file Sexual Orientation Not on file documented as of this encounter Last Filed Vital Signs Vital Sign Reading Time Taken Comments Blood Pressure 122/72 05/04/2023 10:51 AM CHEMICAL LABORATORY CHIEF Pulse 65 05/04/2023 10:51 AM CHEMICAL LABORATORY CHIEF Temperature 36.4 ??C (97.6 ??F) 05/04/2023 10:[address] Respiratory Rate 14 05/04/2023 10:51 AM CHEMICAL LABORATORY CHIEF Oxygen Saturation 96% 05/04/2023 10:51 AM CHEMICAL LABORATORY CHIEF Inhaled Oxygen Concentration - - Weight 97 kg (213 lb 12.8 oz) 05/04/2023 10:51 A M CHEMICAL LABORATORY CHIEF Height - - Body Mass Index 30.24 04/30/2023 12:15 PM CHEMICAL LABORATORY CHIEF documented in this encounter Progress Notes * [...] The patient has since established care with erection shop supervisor, Dr. Castanon, who noted ventricular bigeminy and [...] was treated with a surgical resection for Glasgow 7 disease. He received adjuvant radiation therapy also in 1999. 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 He has been on this regimen since then and his cancer has been under excellent control. Additional imaging will be done in about 1 year. 2. Diabetes. He remains on insulin. 3. Chronic kidney disease, followed by his tool maintenance worker. 4. Chronic lower back pain, secondary to [...] He is now being followed by a erection shop supervisor who has increased his carvedilol. Mr. Drew [...] - 05/05/2023 06:59 AM Gautam Cope M.D. grain roaster ISAK/GLORIA/axel ICAL LABORATORY CHIEF documented in this encounter Plan of Treatment [...] Chronic Care Management No change(03/23 1:47 PM CHEMICAL LABORATORY CHIEF) No Ingrid Oden RN Note: Problem: Chronic [...] Final Resul t [facility] [place] [address] * (ABNORMAL) Comprehensive metabolic panel (07/27/2023 10:22 AM CDT) Sodium 142 135 - 145 mmol/L Comment:Testing performed by : [facility], [address] [place] [phone] Potassium, pl 4.2 3.3 - 4.9 mmol/L [facility] Comment:Testing performed by : [facility], [address] [place] [phone] Chloride 104 97 - 110 mmol/L [facility] Comment:Testing performed by : [facility], [address] [place] [phone] CO2 28 22 - 32 mmol/L [facility] Comment:Testing performed by : [facility], [address] [place] [phone] Anion gap 10 2 - 15 mmol/L [facility] Comment:Testing performed by : [facility], [address] [place] [phone] BUN 40(H) 6 - 25 mg/dL [facility] Comment:Testing performed by : [address] [phone] Creatinine 2.21(H) 0.80 - 1.30 mg/dL [facility] Comment:Testing performed by : [facility], [address] [place] [phone] Glucose 154 70 - 199 mg/dL MERLINE [...] was last revised 2022. Testing performed by: [facility], [address] [place] [phone] Calcium 9.1 8.5 - 10.3 mg/dL [facility] Comment:Testing performed by : [facility], [address] [place] [phone] Bilirubin, total 0.4 0.1 - 1.2 mg/dL [facility] Comment:Testing performed by : [facility], [address] [place] [phone] Protein, pl 6.5 6.5 - 8.5 g/dL [facility] Comment:Testing performed by : [facility], [address] [place] [phone] Albumin 3.9 3.5 - 5.0 g/dL [facility] Comment:Testing performed by : [facility], [address] [place] [phone] Alk phos 129 40 - 130 Units/L [facility] Comment:Testing performed by : [address] [phone] ALT 9 7 - 55 Units/L [facility] Comment:Testing performed by : [facility], [address] [place] [phone] AST 11 10 - 50 Units/L [facility] Comment:Testing performed by : [facility], [address] [place] [phone] Blood 07/27/2023 10:2 2 AM CDT 07/27/2023 10:34 AM CDT us Gautam Cope MD LAB BLOOD ORDERABLES Final Resul t [facility] Department [place] [address] * (ABNORMAL) CBC with auto differential (07/27/2023 10:22 AM CDT) [facility] WBC 12.4(H) 3.8 - 9.8 K/cumm Comment:Testing performed by : [facility], [address] [place] [address] Hgb 12.6(L) 13.8 - 17.2 g/dL [facility] Comment:Testing performed by : [place] [address] Hct 39.9(L) 40.7 - 50.3 % [facility] Comment:Testing performed by : [facility], [address] [place] [address] Plt 347 140 - 440 K/cumm [facility] Comment:Testing performed by : [place] [address] MPV 7.3 6.8 - 10.4 fL [facility] Comment:Testing performed by : [place] [address] RBC 4.48(L) 4.50 - 5.70 M/cumm [facility] Comment:Testing performed by : [place] [address] MCV 88.9 80.0 - 97.6 fL [facility] Comment:Testing performed by : [place] [address] MCH 28.2 26.7 - 33.7 pg [facility] Comment:Testing performed by : [place] [address] MCHC 31.7(L) 32.7 - 35.5 g/dL [facility] Comment:Testing performed by : [place] [address] RDW CV 14.3 11.8 - 14.6 % [facility] Comment:Testing performed by : [place] [address] NRBC abs 0.00 0.00 - 0.01 K/cumm [facility] Comment:Testing performed by : [place] [address] Blood 07/27/2023 10:2 2 AM CDT 07/27/2023 10:34 AM CDT us Gautam Cope MD LAB BLOOD ORDERABLES Final Resul t Performing Organization Address [facility] Phone Number [facility] Department [place] [address] * Lactate dehydrogenase (LD) (07/27/2023 10:22 AM CDT) Lactate dehydrogenase (LDH) 149 100 - 250 Units/L Comment:Testing performed by : [facility], [address] [place] [phone] Blood 07/27/2023 10:2 2 AM CDT 07/27/2023 10:34 AM CDT Result Tenisha Cope MD LAB BLOOD ORDERABLES Final Resul t Performing Organization Address [facility] Phone Number [facility] Department [place] [address] * (ABNORMAL) Hemoglobin A1c (05/04/2023 10:06 AM CHEMICAL LABORATORY CHIEF) Hgb A1C 8.1(H) 4.0 - 5.6 % [facility] Estimated Average Glucose 186 mg/dL [facility] Comment: The ADA recommends reporting an estimated Average Glucose (eAG) with all Hemoglobin A1c results using the equation derived from a study of 507 normal and diabetic adults. ??Minority populations were underrepresented and children were not included. ?? (Diabetes Care 2020; 43(S1): S66-S76). ??The eAG is not equivalent to a fasting glucose. Blood 05/04/2023 10:0 6 AM CHEMICAL LABORATORY CHIEF 05/04/2023 10:57 AM CHEMICAL LABORATORY CHIEF Result Tenisha Cope MD LAB BLOOD ORDERABLES Final Resul t Performing Organization Address [facility] Phone Number [facility] Department [place] [address] documented in this encounter Visit Diagnoses Diagnosis Prostate cancer (HCC)- Primary Malignant neoplasm of prostate documented in this encounter Orders Appointment Requests Count Last Ordered Date Fi rst Ordered Date ONCBCN CLINIC APPOINTMENT REQUEST 2 024 05/04/2023 ONCBCN INJECTION APPOINTMENT REQUEST 1 07/11 ONCBCN LAB APPOINTMENT 1 07/27/2023 documented in this encounter Care Teams Drafter Apprentice Relationship Specialty Start Date End Date Kraig Ching MD [address] [place] [address] PCP - General 07/10/16 Gautam Cope MD [address] [place] [address] Medical Oncologist/Woods Boss Medical Oncology 08/18/18 Tramaine Roe MD [address] [place] [address] Referring Physician Urology 08/18/18 Sukhwinder Uribe MD [address] [place] [address] Consulting Physician Urology 08/18/18 Shay Guillermo MD [address] [place] [address] Referring Physician Urology 08/18/18 Marsha Landis, RN Registered Nurse 11/17/18 documented as of this encounter
--- OUTSIDE RECORDS SUMMARY | 2024-03-31 11:25 | XMS_ITS | Encounter Summary ---
Author Organization [facility] Address [address] [place] [address] Phone Care Team Providers Care Irrigation Manager Name Role Phone Kraig Ching MD Primary Care Provider [phone] Gautam Cope MD Unavailable Tramaine Roe MD Unavailable [phone] Sukhwindre Uribe MD Unavailable Shay Guillermo MD Unavailable [phone] Marsha Landis RN Unavailable Unavailab le Reason for Visit * Reason Onset Date Comments rescheduling surgery 03/26/2023 Possible Sx Reschedule 03/26/2023 Encounter Details Date Type Department Care Team (Late st Contact Info) Description 03/26/2023 Telephone [facility] Ophthalmology [address] [place], [place] [id number] Higinio Connolly MD [address] [facility] [address] [place] [address] rescheduling surgery; Possible Sx Reschedule Social History [...] on file Legal Sex Male 4:[address] DEPUTY CLERK Gender Identity Not on file Sexual Orientation Not on file documented as of this encounter Miscellaneous Notes * Telephone Encounter - Janice Goldman - 05/20/2023 9:15 AM CST Spoke to pt and his today. They understand he needs to be early due to his diabetes. Keeping his surgery time the same. [facility] DEPUTY CLERK * Telephone Encounter - Janice Goldman - [...] my direct #, if any additional questions. ICE COURT DEPUTY CLERK * Telephone Encounter - Janice Goldman - 05/19/2023 4:22 PM CST Mailbox is full. Unable to leave a message. ICE [facility] DEPUTY CLERK * Telephone Encounter - Mable Ordaz RMA - 05/19/2023 3:[address] DEPUTY CLERK Pt's Aracely called regarding pt's 2.28.24 sx. They may need to reschedule (too early) Please return her call: [phone] DEPUTY CLERK * Telephone Encounter - Janice Goldman - 04/06/2023 10:[address] DEPUTY CLERK Rescheduled pt's CE/OU. Pt will have the same insurance next year. Pt stated he got he go-ahead for CE from his monkey breeder and his PCP. [address] [facility] DEPUTY CLERK * Telephone Encounter - Kat Hudson - 03/26/2023 1:08 PM CST Pt called in to r/s cancelled surgery from 03/15. Pt advised cardiac issue has been resolved and is ready to schedule. Pt# [phone] Spouse# [phone] DEPUTY CLERK documented in this encounter Plan of [...] Chronic Care Management No change(03/23 1:[address] DEPUTY CLERK) No Ingrid Oden RN Note: Problem: Chronic Pain Goals: 1. Minimize further functional decline 2. Maximize quality of life 3. Control pain Strategies: - Activity/exercise program recommendation - Conservative stepwise pain medicine strategy with multi-disciplinary approach - Recommend healthy lifestyle strategies and compensatory methods as needed documented as of this encounter Visit Diagnoses Not on filedocumented in this encounter Care Teams Irrigation Manager Relationship Specialty Start Date End Date Kraig Ching MD [address] [facility] [address] [place] [address] PCP - General 07/10/16 Gautam Cope MD [address] [facility] [address] [place] [address] Medical Oncologist/Assistant Grocery Store Manager Medical Oncology 08/18/18 Tramaine Roe MD [address] [facility] [address] [place] [address] Referring Physician Urology 08/18/18 Sukhwinder Uribe MD [address] [facility] [address] [place] [address] Consulting Physician Urology 08/18/18 Shay Guillermo MD [address] [facility] [address] [place] [address] Referring Physician Urology 08/18/18 Marsha Landis, RN Registered Nurse 11/17/18 documented as of this encounter
--- OUTSIDE RECORDS SUMMARY | 2024-03-31 11:25 | XMS_ITS | Encounter Summary ---
Author Organization [facility] Address [address] [place] [address] Care Team Providers Care Fabric Finisher Name Role Phone Kraig Ching MD Primary Care Provider [phone] Gautam Cope MD Unavailable Tramaine Roe MD Unavailable [phone] Sukhwinder Uribe MD Unavailable [phone] Shay Guillermo MD Unavailable [phone] Marsha Landis RN Unavailable Unavailab le Reason for Referral * Cardiology (Routine) - Closed Specialty Diagnoses / Procedures Referred By Saleem narvaez Referred To Contact Diagnoses Abnormal EKG Systolic murmur Procedures ECG 12 lead Mary Ellen Stone NP [address] [address] Phone: tel: fax: [facility] [address] [place] [address] Referral ID Status Reason Start Date Expiration Date Visits Re quested Visits Authorized [id number] Closed 02/18/2023 03/19/2024 1 1 RITY GUARD SUPERVISOR Reason for Visit * Auth/Cert (Routine) Specialty Diagnoses / Procedures Referred By Saleem narvaez Referred To Contact Diagnoses 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] Procedures [place] XCAPSL CTRC RMVL INSJ IO LENS PROSTH W/O ECP EXTRACTION CATARACT - PHACOEMULSIFICATION AND LENS IMPLANT Referral ID Status Reason Start Date Expiration Date Visits Re quested Visits Authorized [id number] 1 1 Encounter Details Date Type Department Care Team (Latest Contact Info) Description 02/18/2023 11:56 AM SECURITY GUARD SUPERVISOR - 02/18/2023 11:59 PM SECURITY GUARD SUPERVISOR Hospital Encounter [facility] [address] [place] [address] Abnormal EKG; Systolic murmur Discharge Disposition: Discharge [...] file Legal Sex Male 4:46 PM SECURITY GUARD SUPERVISOR Gender Identity Not on file Sexual [...] monitor diabetes and kidney status, etc. [facility] Chronic Pain Care Plan Chronic Care Management No change(03/23 1:47 PM SECURITY GUARD SUPERVISOR) No Ingrid Oden, RN Note: Problem: [...] Comments ECG 12-LEAD Routine 02/18/2023 12:10 PM SECURITY GUARD SUPERVISOR Abnormal EKG Systolic murmur documented in this encounter Results * ECG 12 lead (02/18/2023 12:10 PM SECURITY GUARD SUPERVISOR) Ventricular Rate EKG/Min 67 BPM [facility] Atrial Rate 67 BPM [facility] WY-Interval (MSEC) 240 ms [facility] QRS-Interval (MSEC) 86 ms [facility] QT-Interval (MSEC) 412 ms [facility] QTc 435 ms [facility] P [place] 10 degrees [facility] R [place] 18 degrees [facility] T [place] 85 degrees [facility] Diagnosis Sinus rhythm with sinus arrhythmia with 1st degree A-V block with occasional Premature ventricular complexes Nonspecific T wave abnormality Early R wave progression Abnormal ECG No previous ECGs available Confirmed by TOO DICKENS M.D ([id number]) on 02/25/2023 1:44:07 PM [facility] 02/18/2023 12:1 0 PM SECURITY GUARD SUPERVISOR 02/25/2023 1:44 PM SECURITY GUARD SUPERVISOR us Faustinobenny Chase JAVA PROGRAMMER ECG ORDERABLES Final Result [facility] documented in this encounter Visit Diagnoses Diagnosis Abnormal EKG Nonspecific abnormal electrocardiogram (ECG) (EKG) Systolic murmur Undiagnosed cardiac murmurs documented in this encounter Care Teams Fabric Finisher Relationship Specialty Start Date End Date Kraig Ching MD [address] [place] [address] PCP - General 07/10/16 Gautam Cope MD [address] [place] [address] Medical Oncologist/Security Checker Medical Oncology 08/18/18 Tramaine Roe MD [address] [place] [address] Referring Physician Urology 08/18/18 Sukhwinder Uribe MD [address] [place] [address] Consulting Physician Urology 08/18/18 Shay Guillermo MD [address] [place] [address] Referring Physician Urology 08/18/18 Marsha Landis, RN Registered Nurse 11/17/18 documented as of this encounter
--- OUTSIDE RECORDS SUMMARY | 2024-03-31 11:25 | XMS_ITS | Encounter Summary ---
Author Organization [facility] Address [address] [place] [address] Phone Care Team Providers Care Stave Bolt Equalizer Name Role Phone Kraig Ching MD Primary Care Provider [phone] Gautam Cope MD Unavailable Tramaine Roe MD Unavailable [phone] Sukhwinder Uribe MD Unavailable [phone] Shay Guillermo MD Unavailable [phone] Marsha Landis RN Unavailable Unavailab le Encounter [...] file Legal Sex Male 4:46 PM HEALTH COMPANION Gender Identity Not on file Sexual Orientation [...] Care Management No change(03/23 1:47 PM HEALTH COMPANION) No Ingrid Oden, RN Note: Problem: Chronic Pain Goals: 1. Minimize further functional decline 2. Maximize quality of life 3. Control pain Strategies: - Activity/exercise program recommendation - Conservative stepwise pain medicine strategy with multi-disciplinary approach - Recommend healthy lifestyle strategies and compensatory methods as needed documented as of this encounter Visit Diagnoses Not on filedocumented in this encounter Care Teams Stave Bolt Equalizer Relationship Specialty Start Date End Date Kraig Ching MD [address] [place] [address] PCP - General 07/10/16 Gautam Cope MD [address] [place] [address] Medical Oncologist/Educational Assistant Teacher Medical Oncology 08/18/18 Tramaine Roe MD [address] [place] [address] Referring Physician Urology 08/18/18 Sukhwinder Uribe MD [address] [place] [address] Consulting Physician Urology 08/18/18 Shay Guillermo MD [address] [place] [address] Referring Physician Urology 08/18/18 Marsha Landis, RN Registered Nurse 11/17/18 documented as of this encounter
--- OUTSIDE RECORDS SUMMARY | 2024-03-31 11:25 | XMS_ITS | Encounter Summary ---
Author Organization [facility] [employer] [facility] Address [address] [place] [address] Phone Care Team Providers Care Steam Box Hand Name Role Phone Kraig Ching MD Primary Care Provider [phone] Gautam Cope MD Unavailable Tramaine Roe MD Unavailable [phone] Sukhwinder Uribe MD Unavailable [phone] Shay Guillermo MD Unavailable [phone] Marsha Landis RN Unavailable Unavailab le Reason for Visit * Episode Based Medications (Routine) - Authorized Specialty Diagnoses / Procedures Referred By Saleem t Referred To Contact Oncology Diagnoses Prostate cancer (HCC) Procedures CA LEUPROLIDE ACETATE SUSPNSION Leuprolide Every 3 Months - Prostate Gautam Cope MD [address] [facility] [address] [place] [address] Phone: tel: fax: [facility] [place] [facility] - [facility]fusion [address] [facility] [address] [place] [address] Referral ID Status Reason Start Date Expiration Date V isits Requested Visits Authorized [id number] Authorized 09/06/2018 07/11/2024 1 50 Encounter Details Date Type Department Care Team (Late st Contact Info) Description 05/04/2023 12:00 PM CARDIAC MONITOR Infusion [facility] Oncology [address] [facility] 7th [place] [address] Prostate cancer (HCC) (Primary Dx) [...] on file Legal Sex Male 4:46 PM CARDIAC MONITOR Gender Identity Not on file Sexual Orientation Not on file documented as of this encounter Nursing Notes * Nalini Isbell, SHEA - 05/04/2023 12:00 PM CST Oncology Nursing Note [facility] ONCOLOGY David Wei is a [...] balance Accompanied by: family Discharged To: Home IAC MONITOR documented in this encounter Plan of Treatment [...] to monitor diabetes and kidney status, etc. [facility] Chronic Pain Care Plan Chronic Care Management No change(03/23 1:47 PM CARDIAC MONITOR) No Ingrid Oden, SHEA Note: Problem: Chronic [...] te cancer (HCC) Given 05/04/2023 11:47 AM CARDIAC MONITOR 22.5 mg Left Lower Abdomen documented in [...] 04/13 documented in this encounter Care Teams Steam Box Hand Relationship Specialty Start Date End Date Kraig Ching MD [address] [address] PCP - General 07/10/16 Gautam Cope MD [address] [facility] [address] [place] [address] Medical Oncologist/Vacuum Evaporation Operator Medical Oncology 08/18/18 Tramaine Roe MD [address] [facility] [address] [place] [address] Referring Physician Urology 08/18/18 Sukhwinder Uribe MD [address] [facility] [address] [place] [address] Consulting Physician Urology 08/18/18 Shay Guillermo MD [address] [facility] [address] [place] [address] Referring Physician Urology 08/18/18 Marsha Landis, RN Registered Nurse 11/17/18 documented as of this encounter
--- OUTSIDE RECORDS SUMMARY | 2024-03-31 11:26 | XMS_ITS | Encounter Summary ---
Author Organization [facility] Healthcare Address [address] [place] [address] Care Team Providers Care Pickle Solution Maker Name Role Phone Kraig Ching MD Primary Care Provider [phone] Gautam Cope MD Unavailable Tramaine Roe MD Unavailable Sukhwinder Uribe MD Unavailable [phone] Shay Guillermo MD Unavailable [phone] Marsha Landis RN Unavailable Unavailab le Encounter Details Date Type Department Care Team (Late st Contact Info) Description 01/01/2023 10:35 AM CDT Lab [facility] Advanced Medicine [facility] Advanced Medicine ([facility]) [address] [place] [id number] Type 2 diabetes mellitus with stage 3a [...] on file Legal Sex Male 4:46 PM FUR GLOSSER Gender Identity Not on file Sexual Orientation [...] Chronic Care Management No change(03/23 1:47 PM FUR GLOSSER) No Ingrid Oden, RN Note: Problem: Chronic [...] MD LAB URINE ORDERABLES Final Re sult [facility] [place] [address] documented in this encounter Visit Diagnoses Diagnosis Type 2 diabetes mellitus with stage 3a chronic kidney disease, with long-term current use of insulin (HCC) documented in this encounter Care Teams Pickle Solution Maker Relationship Specialty Start Date End Date Kraig Ching MD [address] [facility] [address] [place] [address] PCP - General 07/10/16 Gautam Cope MD [address] [facility] [address] [place] [address] Medical Oncologist/Wire Frame Dipper Medical Oncology 08/18/18 Tramaine Roe MD [address] [facility] [address] [place] [address] Referring Physician Urology 08/18/18 Sukhwinder Uribe MD [address] [facility] [address] [place] [address] Consulting Physician Urology 08/18/18 Shay Guillermo MD [address] [facility] [address] [place] [address] Referring Physician Urology 08/18/18 Marsha Landis, RN Registered Nurse 11/17/18 documented as of this encounter
--- OUTSIDE RECORDS SUMMARY | 2024-03-31 11:26 | XMS_ITS | Encounter Summary ---
Author Organization [facility] [employer] Address [address] [place] [address] Phone Care Team Providers Care Supervisor Color Paste Mixing Name Role Phone Kraig Ching MD Primary Care Provider [phone] Gautam Cope MD Unavailable Tramaine Roe MD Unavailable Sukhwinder Uribe MD Unavailable [phone] Shay Guillermo MD Unavailable [phone] Marsha Landis RN Unavailable Unavailab le Reason for Visit * Consultation (Routine) - Authorized Specialty Diagnoses / Procedures Referred By Saleem narvaez Referred To Contact Oncology Diagnoses Prostate cancer (HCC) Tramaine Roe MD [address] [facility] [address] [place] [address] Phone: tel: fax: Gautam Cope MD [address] [facility], [address] [place] [address] Phone: tel: fax: Referral ID Status Reason Start Date Expiration Date Visits Requested Visits Authorized [id number] Authorized Specialty Services Required 08/15/2018 04/11/2024 99 99 Encounter Details Date Type Department Care Team (Late st Contact Info) Description 02/09/2023 10:15 AM CDT Lab [facility] Oncology [address] [facility] Advanced [facility] 7th [place] [address] [place] [address] Prostate cancer (HCC) Social History [...] on file Legal Sex Male 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 [facility] Chronic Pain Care Plan Chronic Care Management No change(03/23 1:47 PM AUTOMOTIVE TIRE TESTER) No Ingrid Oden, SHEA Note: Problem: [...] 02/09/2023 documented in this encounter Care Teams Supervisor Color Paste Mixing Relationship Specialty Start Date End Date Kraig Ching MD [address] [place], [place] [id number] PCP - General 07/10/16 Gautam Cope MD [address] [employer] [place] [address] Medical Oncologist/Utilization Management Manager Medical Oncology 08/18/18 Tramaine Roe MD [address] [facility] [address] [place] [address] Referring Physician Urology 08/18/18 Sukhwinder Uribe MD [address] [facility] [address] [place] [address] Consulting Physician Urology 08/18/18 Shay Guillermo MD [address] [facility] [address] [place] [address] Referring Physician Urology 08/18/18 Marsha Landis, RN Registered Nurse 11/17/18 documented as of this encounter
--- OUTSIDE RECORDS SUMMARY | 2024-03-31 11:26 | XMS_ITS | Encounter Summary ---
Author Organization [facility] Healthcare Address [address] [place] [address] Care Team Providers Care Bridge Instructor Name Role Phone Kraig Ching MD Primary Care Provider [phone] Gautam Cope MD Unavailable Tramaine Roe MD Unavailable [phone] Sukhwinder Uribe MD Unavailable [phone] Shay Guillermo MD Unavailable [phone] Marsha Landis RN Unavailable Unavailab le Reason for Referral * Consultation (Routine) - Closed Specialty Diagnoses / Procedures Referred By Saleem narvaez Referred To Contact Cardiology Diagnoses Abnormal EKG Systolic murmur Mary Ellen Stone NP [address] [address] Phone: tel: fax: [facility] (All Locations) Referral ID Status Reason Start Date Expiration Date V isits Requested Visits Authorized [id number] Closed Specialty Services Required 02/18/2023 03/19/2024 12 12 Question Answer Please select the performing region: [facility] (All Locations) [167] Is this referral for the [facility]? No # of visits: 1 Comments Had an abnormal EKG as part of pre-op clearance. Anesthesia declined to proceed, notes show no details of what they found. EKG image quality from hospital poor. OR DIRECTOR MARKETING * Cardiology (Routine) - Closed Specialty Diagnoses / Procedures Referred By Saleem narvaez Referred To Contact Diagnoses Abnormal EKG Systolic murmur Procedures ECG 12 lead Mary Ellen Stone NP [address] [place] [address] Phone: tel: fax: [facility] [address] [place] [address] Referral ID Status Reason Start Date Expiration Date Visits Re quested Visits Authorized [id number] Closed 02/18/2023 03/19/2024 1 1 OR DIRECTOR MARKETING Encounter Details Date Type Department Care Team (Late st Contact Info) Description 02/18/2023 10:30 AM SENIOR DIRECTOR MARKETING Office Visit [facility] [address] [facility] [address] [place] [address] Mary Ellen Stone NP [address] [address] Abnormal EKG (Primary Dx); Systolic murmur; Spinal [...] file Legal Sex Male 4:46 PM SENIOR DIRECTOR MARKETING Gender Identity Not on file Sexual Orientation Not on file documented as of this encounter Last Filed Vital Signs Vital Sign Reading Time Taken Comments Blood Pressure 137/80 02/18/2023 10:40 AM SENIOR DIRECTOR MARKETING Pulse 77 02/18/2023 10:40 AM SENIOR DIRECTOR MARKETING Temperature 36.1 ??C (97 ??F) 02/18/2023 10:40 AM SENIOR DIRECTOR MARKETING Respiratory Rate 18 02/18/2023 10:40 AM SENIOR DIRECTOR MARKETING Oxygen Saturation 95% 02/18/2023 10:40 AM SENIOR DIRECTOR MARKETING Inhaled Oxygen Concentration - - Weight 98.4 kg (217 lb) 02/18/2023 10:40 AM SENIOR DIRECTOR MARKETING Height 180.3 cm (5' 11 ) 02/18/2023 10:40 AM SENIOR DIRECTOR MARKETING Body Mass Index 30.27 02/18/2023 10:40 AM SENIOR DIRECTOR MARKETING documented in this encounter Progress Notes * [...] Comments: Patient currently does not have a hospital clinic assistant. Refer to Cardiology for further evaluation. Orders: [...] Kraig Ching MD at 02/18/2023 2:02 PM SENIOR DIRECTOR MARKETING OR DIRECTOR MARKETING OR DIRECTOR MARKETING documented in this encounter Plan of Treatment [...] Care Management No change(03/23 1:47 PM SENIOR DIRECTOR MARKETING) No Ingrid Oden, RN Note: Problem: Chronic Pain Goals: 1. Minimize further functional decline 2. Maximize quality of life 3. Control pain Strategies: - Activity/exercise program recommendation - Conservative stepwise pain medicine strategy with multi-disciplinary approach - Recommend healthy lifestyle strategies and compensatory methods as needed documented as of this encounter Results * ECG 12 lead (02/18/2023 12:10 PM SENIOR DIRECTOR MARKETING) Ventricular Rate EKG/Min 67 BPM [facility] Atrial Rate 67 BPM [facility] IN-Interval (MSEC) 240 ms [facility] QRS-Interval (MSEC) 86 ms [facility] QT-Interval (MSEC) 412 ms [facility] QTc 435 ms [facility] P [place] 10 degrees [facility] R [place] 18 degrees [facility] T [place] 85 degrees [facility] Diagnosis Sinus rhythm with sinus arrhythmia with 1st degree A-V block with occasional Premature ventricular complexes Nonspecific T wave abnormality Early R wave progression Abnormal ECG No previous ECGs available Confirmed by TOO DICKENS M.D ([id number]) on 02/25/2023 1:44:07 PM [facility] 02/18/2023 12:1 0 PM SENIOR DIRECTOR MARKETING 02/25/2023 1:44 PM SENIOR DIRECTOR MARKETING us Mary Ellen Stone RETREAD MOLD OPERATOR ECG ORDERABLES Final Result [facility] * XR Spine Lumbar Complete 4 Or More (02/18/2023 11:42 AM SENIOR DIRECTOR MARKETING) Anatomical Region Laterality Modality Spine N/A Computed Radiogr aphy 02/18/2023 12:3 2 PM SENIOR DIRECTOR MARKETING Impressions 02/18/2023 12:32 PM SENIOR DIRECTOR MARKETING 1. ??Multilevel degenerative disc disease in the lumbar spine, greatest and severe at L1-L2. Electronically signed by: Sundar Umanzor MD Narrative 02/18/2023 12:32 PM SENIOR DIRECTOR MARKETING EXAMINATION: XR SPINE LUMBAR 4 OR MORE [...] by: Sundar Umanzor MD Mary Ellen Stone RETREAD MOLD OPERATOR IMG XR PROCEDURES Final Resul t documented [...] sciatica documented in this encounter Care Teams Bridge Instructor Relationship Specialty Start Date End Date Kraig Ching MD [address] [facility] [address] [place] [address] PCP - General 07/10/16 Gautam Cope MD [address] [facility] [address] [place] [address] Medical Oncologist/Underground Roof Bolter Medical Oncology 08/18/18 Tramaine Roe MD [address] [facility] [address] [place] [address] Referring Physician Urology 08/18/18 Sukhwinder Uribe MD [address] [facility] [address] [place] [address] Consulting Physician Urology 08/18/18 Shay Guillermo MD [address] [facility] [address] [place] [address] Referring Physician Urology 08/18/18 Marsha Landis, RN Registered Nurse 11/17/18 documented as of this encounter
--- OUTSIDE RECORDS SUMMARY | 2024-03-31 11:26 | XMS_ITS | Encounter Summary ---
Author Organization [facility] Healthcare Address [address] [place] [address] Care Team Providers Care Manager Business Planning Name Role Phone Kraig Ching MD Primary Care Provider [phone] Gautam Cope MD Unavailable Tramaine Roe MD Unavailable [phone] Sukhwinder Uribe MD Unavailable [phone] Shay Guillermo MD Unavailable [phone] Marsha Landis RN Unavailable Unavailab le Reason for Visit * Reason Onset Date Comments Symptom Based Call 01/29/2023 Encounter Details Date Type Department Care Team (Late st Contact Info) Description 01/29/2023 Telephone [facility] [address] [facility] [address] [place] [address] Kraig Ching MD [address] [facility] [address] [place] [address] Symptom Based Call Social History [...] file Legal Sex Male 4:46 PM 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 Non-Emergent. Is this a new or reoccurring symptom(s)? New What have you tried to help your symptom(s)? none Why was appointment not scheduled? Requesting advice from clinical steamboat inspector. Additional Comments: Patient called stating that he [...] Care Management No change(03/23 1:47 PM HIDE HOUSE SUPERVISOR) No Ingrid Oden, SHEA Note: Problem: Chronic Pain Goals: 1. Minimize further functional decline 2. Maximize quality of life 3. Control pain Strategies: - Activity/exercise program recommendation - Conservative stepwise pain medicine strategy with multi-disciplinary approach - Recommend healthy lifestyle strategies and compensatory methods as needed documented as of this encounter Visit Diagnoses Not on filedocumented in this encounter Care Teams Manager Business Planning Relationship Specialty Start Date End Date Kraig Ching MD [address] [facility] [address] [place] [address] PCP - General 07/10/16 Gautam Cope MD [address] [facility] [address] [place] [address] Medical Oncologist/Naphthalene Operator Helper Medical Oncology 08/18/18 Tramaine Roe MD [address] [facility] [address] [place] [address] Referring Physician Urology 08/18/18 Sukhwinder Uribe MD [address] [facility] [address] [place] [address] Consulting Physician Urology 08/18/18 Shay Guillermo MD [address] [facility] [address] [place] [address] Referring Physician Urology 08/18/18 Marsha Landis, RN Registered Nurse 11/17/18 documented as of this encounter
--- OUTSIDE RECORDS SUMMARY | 2024-03-31 11:26 | XMS_ITS | Encounter Summary ---
Author Organization [facility] Address [address] [facility] [address] [place] [address] Care Team Providers Care Membership Solicitor Name Role Phone Kraig Ching MD Primary Care Provider [phone] Gautam Cope MD Unavailable Tramaine Roe MD Unavailable [phone] Sukhwinder Uribe MD Unavailable [phone] Shay Guillermo MD Unavailable Marsha Landis RN Unavailable Unavailab le Reason for Visit * Reason Comments Cough Cold Symptoms X 10 days Shortness of Breath Encounter Details Date Type Department Care Team (Late st Contact Info) Description 01/01/2023 10:00 AM CDT Office Visit [facility] [address] [facility] [address] [place] [address] Mary Ellen Stone NP [address] [facility] [address] [place], [place] [address] Symptoms of upper respiratory infection (URI) (Primary [...] on file Legal Sex Male 4:46 PM PERSONNEL CLERK Gender Identity Not on file Sexual [...] Chronic Care Management No change(03/23 1:47 PM PERSONNEL CLERK) No Ingrid Oden, SHEA Note: Problem: [...] Mina Jolly M.D. us Mary Ellen Stone WEB CONTENT DIRECTOR IMG XR PROCEDURES Final Resul t [...] 12/10/2022 added in this encounter Care Teams Membership Solicitor Relationship Specialty Start Date End Date Kraig Ching MD [address] [place] [address] PCP - General 07/10/16 Gautam Cope MD [address] [place] [address] Medical Oncologist/Shear Operator Automatic Medical Oncology 08/18/18 Tramaine Roe MD [address] [place] [address] Referring Physician Urology 08/18/18 Sukhwinder Uribe MD [address] [place] [address] Consulting Physician Urology 08/18/18 Shay Guillermo MD [address] [facility] [address] [place] [address] Referring Physician Urology 08/18/18 Marsha Landis, RN Registered Nurse 11/17/18 documented as of this encounter
--- OUTSIDE RECORDS SUMMARY | 2024-03-31 11:26 | XMS_ITS | Encounter Summary ---
Author Organization [facility] Healthcare Address [address] [place] [address] Care Team Providers Care It Support Engineer Name Role Phone Kraig Ching MD Primary Care Provider [phone] Gautam Cope MD Unavailable Tramaine Roe MD Unavailable [phone] Sukhwinder Uribe MD Unavailable [phone] Shay Guillermo MD Unavailable [phone] Marsha Landis RN Unavailable Unavailab le Reason for Visit * Reason Onset Date Comments Back Pain 02/03/2023 Med Change Request 02/03/2023 Additional Services Or Orders 02/03/2023 Encounter Details Date Type Department Care Team (Late st Contact Info) Description 02/03/2023 Nurse Triage [facility] [address] [facility] [address] [place] [address] Liz Adams RN Social History Tobacco Use [...] file 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 scheduling) Additional Comments: Urgently seeking. 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 No appt [...] medicine and CARE ADVICE Protocols used: Back [id number] * Telephone Encounter - Wendy Pereyra RN [...] Type Associated Problems Recent Progress Patient-Stated? Author AZK General Goal - Patient is knowledgeable about [...] Care Management No change(03/23 1:47 PM PARTS CATALOGER) No Ingrid Oden, SHEA Note: Problem: Chronic Pain Goals: 1. Minimize further functional decline 2. Maximize quality of life 3. Control pain Strategies: - Activity/exercise program recommendation - Conservative stepwise pain medicine strategy with multi-disciplinary approach - Recommend healthy lifestyle strategies and compensatory methods as needed documented as of this encounter Visit Diagnoses Not on filedocumented in this encounter Care Teams It Support Engineer Relationship Specialty Start Date End Date Kraig Ching MD [address] [place] [address] PCP - General 07/10/16 Gautam Cope MD [address] [place] [address] Medical Oncologist/Extension Associate Medical Oncology 08/18/18 Tramaine Roe MD [address] [place] [address] Referring Physician Urology 08/18/18 Sukhwinder Uribe MD [address] [place] [address] Consulting Physician Urology 08/18/18 Shay Guillremo MD [address] [place] [address] Referring Physician Urology 08/18/18 Marsha Landis, RN Registered Nurse 11/17/18 documented as of this encounter
--- OUTSIDE RECORDS SUMMARY | 2024-03-31 11:26 | XMS_ITS | Encounter Summary ---
Author Organization [facility] Medical [facility] Address [address] [facility] [address] [place] [address] Care Team Providers Care Switchman Name Role Phone Kraig Ching MD Primary Care Provider Gautam Cope MD Unavailable Tramaine Roe MD Unavailable [phone] Sukhwinder Uribe MD Unavailable [phone] Shay Guillermo MD Unavailable [phone] Marsha Landis RN Unavailable Unavailab le Reason for Visit * Reason Onset Date Comments Sinus Problem 12/31/2022 Encounter Details Date Type Department Care Team (Late st Contact Info) Description 12/31/2022 Nurse Triage [facility] [address] [facility] [address] [place] [address] Wendy Pereyra, SHEA Social History Tobacco Use [...] on file 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 [facility] Chronic Pain Care Plan Chronic Care Management No change(03/23 1:47 PM CENTRAL OFFICE REPAIRER SUPERVISOR) No Ingrid Oden, SHEA Note: Problem: Chronic Pain Goals: 1. Minimize further functional decline 2. Maximize quality of life 3. Control pain Strategies: - Activity/exercise program recommendation - Conservative stepwise pain medicine strategy with multi-disciplinary approach - Recommend healthy lifestyle strategies and compensatory methods as needed documented as of this encounter Visit Diagnoses Not on filedocumented in this encounter Care Teams Switchman Relationship Specialty [place] [address] [place] [address] [address] [place] [address] PCP - General 07/10/16 [place] [address] [place] [address] [address] [place] [address] Medical Oncologist/Board Stacker Medical Oncology 08/18/18 [place] [address] [place] [address] [address] [place] [address] Referring Physician Urology 08/18/18 Sukhwinder Uribe MD [address] [facility] [address] [place] [address] Consulting Physician Urology 08/18/18 Shay Guillermo MD [address] [place] [address] Referring Physician Urology 08/18/18 Marsha Landis RN Registered Nurse 11/17/18 documented as of this encounter
--- OUTSIDE RECORDS SUMMARY | 2024-03-31 11:26 | XMS_ITS | Encounter Summary ---
Author Organization [facility] Address [address] [place] [address] Phone Care Team Providers Care Community Services Coordinator Name Role Phone Kraig Ching MD Primary Care Provider [phone] Gautam Cope MD Unavailable Tramaine Roe MD Unavailable [phone] Sukhwinder Uribe MD Unavailable [phone] Shay Guillermo MD Unavailable [phone] Marsha Landis RN Unavailable Unavailab le Reason for Visit * Episode Based Medications (Routine) - Authorized Specialty Diagnoses / Procedures Referred By Saleem t Referred To Contact Oncology Diagnoses Prostate cancer (HCC) Procedures SD LEUPROLIDE ACETATE SUSPNSION Leuprolide Every 3 Months - Prostate Gautam Cope MD [address] [facility] [address] [place] [address] Phone: tel: fax: [facility] - Infusion [address] [facility] [address] [place] [address] Referral ID Status Reason Start Date Expiration Date V isits Requested Visits Authorized [id number] Authorized 09/06/2018 07/11/2024 1 50 Encounter Details Date Type Department Care Team (Late st Contact Info) Description 02/09/2023 11:30 AM CDT Infusion [facility] Oncology [address] 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 male who presents for the following injection: [facility] Nursing Assessment Nursing Assessment LOC: Alert, [...] Chronic Care Management No change(03/23 1:47 PM WATERSHED COORDINATOR) Ingrid Mcdaniels, RN Note: Problem: Chronic Pain [...] 01/12 documented in this encounter Care Teams Community Services Coordinator Relationship Specialty Start Date End Date Kraig Ching MD [address] [place] [address] PCP - General 07/10/16 Gautam Cope MD [address] [place] [address] Medical Oncologist/Continuous Pickling Line Pickler Medical Oncology 08/18/18 Tramaine Roe MD [address] [place] [address] Referring Physician Urology 08/18/18 Sukhwinder Uribe MD [address] [place] [address] Consulting Physician Urology 08/18/18 Shay Guillermo MD [address] [facility] [address] [place] [address] Referring Physician Urology 08/18/18 Marsha Landis, RN Registered Nurse 11/17/18 documented as of this encounter
--- OUTSIDE RECORDS SUMMARY | 2024-03-31 11:26 | XMS_ITS | Encounter Summary ---
Author Organization [facility] Address [address] [place] [address] Phone Care Team Providers Care Pin Maker Name Role Phone Kraig Ching MD Primary Care Provider Gautam Cope MD Unavailable Tramaine Roe MD Unavailable [phone] Sukhwinder Uribe MD Unavailable [phone] Shay Guillermo MD Unavailable [phone] Marsha Landis RN Unavailable Unavailab le Reason for Referral * MRI/CAT/PET Scan (Routine) - Closed Specialty Diagnoses / Procedures Referred By Saleem narvaez Referred To Contact Radiology Diagnoses Prostate cancer (HCC) Procedures CT chest without contrast Gautam Cope MD [address] [facility] [address] [place] [address] Phone: tel: fax: [address] [address] Referral ID Status Reason Start Date Expiration Date Visits Re quested Visits Authorized [id number] Closed 02/01/2023 03/02/2024 1 1 Reason for Visit * Consultation (Routine) - Authorized Specialty Diagnoses / Procedures Referred By Saleem narvaez Referred To Contact Oncology Diagnoses Prostate cancer (HCC) Tramaine Roe MD [address] [facility] [address] [place] [address] Phone: tel: fax: Gautam Cope MD [address] [facility] [address] [facility] IM MEDICAL ONCOLOGY, [address] [place] [address] Phone: tel: fax: Referral ID Status Reason Start Date Expiration Date Visits Requested Visits Authorized [id number] Authorized Specialty Services Required 08/15/2018 04/11/2024 99 99 Encounter Details Date Type Department Care Team (Late st Contact Info) Description 02/09/2023 11:00 AM CDT Office Visit [facility] Oncology [address] [facility] 7th [place] [address] [place] [id number] Gautam Cope MD [address] [facility] [address] [place] [address] Prostate cancer (HCC) (Primary Dx) Social History [...] on file 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 Chronic kidney disease, followed by a lift team technician. 4. Chronic lower back pain, related to [...] - 02/09/2023 12:30 PM Gautam Cope M.D. baker operator automatic ISAK/GLORIA/lul documented in this encounter Plan of [...] monitor diabetes and kidney status, etc. [facility] Chronic Pain Care Plan Chronic Care Management No change(03/23 1:47 PM NURSING TECHN) No Ingrid Oden, SHEA Note: Problem: Chronic Pain Goals: 1. Minimize further functional decline 2. Maximize quality of life 3. Control pain Strategies: - Activity/exercise program recommendation - Conservative stepwise pain medicine strategy with multi-disciplinary approach - Recommend healthy lifestyle strategies and compensatory methods as needed documented as of this encounter Results * CT chest without contrast (06/15/2023 12:09 PM NURSING TECHN) Anatomical Region Laterality Modality Body N/A Computed Tomogra phy 06/15/2023 12:2 5 PM NURSING TECHN Impressions 06/15/2023 12:25 PM NURSING TECHN Stable areas of groundglass opacity, likely benign. Calcification of the aortic valve and coronary arteries. Electronically signed by: Masood Galdamez M.D. Narrative 06/15/2023 12:25 PM NURSING TECHN EXAMINATION: Computed tomography of the chest without [...] Result * PSA diagnostic (05/04/2023 10:23 AM NURSING TECHN) PSA-Total <0.02 <=6.20 ng/mL [facility] Comment: [...] revised 21. Blood 05/04/2023 10:2 3 AM NURSING TECHN 05/04/2023 11:07 AM NURSING TECHN us Gautam Cope MD LAB BLOOD ORDERABLES Final Resul t [facility] Department [place] [address] * (ABNORMAL) Comprehensive metabolic panel (05/04/2023 10:23 AM NURSING TECHN) Sodium 140 135 - 145 mmol/L [facility] Comment:Testing performed by : [facility], [address] [place] [phone] Potassium, pl 4.5 3.3 - 4.9 mmol/L [facility] Comment:Testing performed by : [facility], [address] [place] [phone] Chloride 106 97 - 110 mmol/L [facility] Comment:Testing performed by : [facility], [address] [place] [phone] CO2 27 22 - 32 mmol/L [facility] Comment:Testing performed by : [facility], [address] [place] [phone] Anion gap 8 2 - 15 mmol/L [facility] Comment:Testing performed by : [facility], [address] [place] [phone] BUN 44(H) 6 - 25 mg/dL [facility] Comment:Testing performed by : [facility], [address] [place] [phone] Creatinine 2.26(H) 0.80 - 1.30 mg/dL [facility] Comment:Testing performed by : [facility], [address] [place] [phone] Glucose 92 70 - 199 mg/dL CERNER [...] was last revised 2022. Testing performed by: [facility], [address] [place] [phone] Calcium 8.8 8.5 - 10.3 mg/dL [facility] Comment:Testing performed by : [facility], [address] [place] [phone] Bilirubin, total 0.4 0.1 - 1.2 mg/dL [facility] Comment:Testing performed by : [address] [phone] Protein, pl 6.0(L) 6.5 - 8.5 g/dL [facility] Comment:Testing performed by : [facility], [address] [place] [phone] Albumin 3.7 3.5 - 5.0 g/dL [facility] Comment:Testing performed by : [address] [address] Alk phos 128 40 - 130 Units/L [facility] Comment:Testing performed by : [address] [phone] ALT 11 7 - 55 Units/L [facility] Comment:Testing performed by : [facility], [address] [place] [phone] AST 10 10 - 50 Units/L [facility] Comment:Testing performed by : [facility], [address] [place] [phone] Blood 05/04/2023 10:2 3 AM NURSING TECHN 05/04/2023 10:36 AM NURSING TECHN us Gautam Cope MD LAB BLOOD ORDERABLES Final Resul t [facility] Department [place] [address] * (ABNORMAL) CBC with auto differential (05/04/2023 10:23 AM NURSING TECHN) WBC 10.2(H) 3.8 - 9.8 K/cumm [facility] Comment:Testing performed by : [facility], [address] [place] [phone] Hgb 12.5(L) 13.8 - 17.2 g/dL [facility] Comment:Testing performed by : [address] [address] Hct 38.3(L) 40.7 - 50.3 % [facility] Comment:Testing performed by : [place] [phone] Plt 315 140 - 440 K/cumm [facility] Comment:Testing performed by : [facility], [address] [place] [phone] MPV 7.6 6.8 - 10.4 fL [facility] Comment:Testing performed by : [address] [phone] RBC 4.25(L) 4.50 - 5.70 M/cumm [facility] Comment:Testing performed by : [place] [phone] MCV 90.1 80.0 - 97.6 fL [facility] Comment:Testing performed by : [address] [address] MCH 29.4 26.7 - 33.7 pg [facility] Comment:Testing performed by : [facility], [address] [place] [phone] MCHC 32.7 32.7 - 35.5 g/dL [facility] Comment:Testing performed by : [facility], [address] [place] [phone] RDW CV 14.9(H) 11.8 - 14.6 % [facility] Comment:Testing performed by : [facility], [address] [place] [phone] NRBC abs 0.01 0.00 - 0.01 K/cumm [facility] Comment:Testing performed by : [facility], [address] [place] [phone] Blood 05/04/2023 10:2 3 AM NURSING TECHN 05/04/2023 10:36 AM NURSING TECHN us Gautam Cope MD LAB BLOOD ORDERABLES Final Resul t Performing Organization Address [facility] de Phone Number [facility] [place] [address] * Lactate dehydrogenase (LD) (05/04/2023 10:23 AM NURSING TECHN) Lactate dehydrogenase (LDH) 153 100 - 250 Units/L [facility] Comment:Testing performed by : [facility], [address] [place] [phone] Blood 05/04/2023 10:2 3 AM NURSING TECHN 05/04/2023 10:36 AM NURSING TECHN us Gautam Cope MD LAB BLOOD ORDERABLES Final Resul t Performing Organization Address [facility] Co de Phone Number [facility] [place] [address] documented in this encounter Visit Diagnoses Diagnosis Prostate cancer (HCC)- Primary Malignant neoplasm of prostate Prostate cancer (HCC) Malignant neoplasm of prostate documented in this encounter Orders Appointment Requests Count Last Ordered Date rst Ordered Date ONCBCN CLINIC APPOINTMENT REQUEST 2 024 02/09/2023 ONCBCN INJECTION APPOINTMENT REQUEST 1 04/13 ONCBCN LAB APPOINTMENT 1 05/04/2023 documented in this encounter Care Teams Pin Maker Relationship Specialty Start Date End Date Kraig Chign MD [address] [place] [address] PCP - General 07/10/16 Gautam Cope MD [address] [place] [address] Medical Oncologist/Social Psychologist Medical Oncology 08/18/18 Tramaine Roe MD [address] [place] [address] Referring Physician Urology 08/18/18 Sukhwinder Uribe MD [address] [place] [address] Consulting Physician Urology 08/18/18 Shay Guillermo MD [address] [place] [address] Referring Physician Urology 08/18/18 Marsha Landis, RN Registered Nurse 11/17/18 documented as of this encounter
--- OUTSIDE RECORDS SUMMARY | 2024-03-31 11:26 | XMS_ITS | Encounter Summary ---
Author Organization [facility] Address [address] [place] [address] Phone Care Team Providers Care Irrigationist Name Role Phone Kraig Ching MD Primary Care Provider [phone] Gautam Cope MD Unavailable Tramaine Roe MD Unavailable [phone] Sukhwinder Uribe MD Unavailable [phone] Shay Guillermo MD Unavailable Marsha Landis RN Unavailable Unavailab le Encounter Details Date Type Department Care Team (Late st Contact Info) Description 02/05/2023 Telephone [facility] Ophthalmology [address] [facility] 2nd Floor [address] [place] [address] Janice Goldman Social History Tobacco Use Types [...] on file 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 ##Please FU with pt regarding above issue(s)-- Please instruct pt on final recs for aspirin. >NOTE: There is no need to reply to this message but if you would like to send a non-urgent reply, please address it to the [facility] staff message POOL address [facility] CPAP WHEAT FARMER (number [id number]). Please note that messages to this address will be replied to within approximately 1 business day. If you have an urgent reply, please call the CPAP at [phone]. documented in this encounter Plan of Treatment [...] Chronic Care Management No change(03/23 1:47 PM ROUNDER AND BACKER) No Ingrid Oden, RN Note: Problem: Chronic Pain Goals: 1. Minimize further functional decline 2. Maximize quality of life 3. Control pain Strategies: - Activity/exercise program recommendation - Conservative stepwise pain medicine strategy with multi-disciplinary approach - Recommend healthy lifestyle strategies and compensatory methods as needed documented as of this encounter Visit Diagnoses Not on filedocumented in this encounter Care Teams Irrigationist Relationship Specialty Start Date End Date Kraig Ching MD [address] [facility] [address] [place] [address] PCP - General 07/10/16 Gautam Cope MD [address] [facility] [address] [place] [address] Medical Oncologist/Procurement Technician Medical Oncology 08/18/18 Tramaine Roe MD [address] [facility] [address] [place] [address] Referring Physician Urology 08/18/18 Sukhwinder Uribe MD [address] [facility] [address] [place] [address] Consulting Physician Urology 08/18/18 Shay Guillermo MD [address] [facility] [address] [place] [address] Referring Physician Urology 08/18/18 Marsha Landis, RN Registered Nurse 11/17/18 documented as of this encounter
--- OUTSIDE RECORDS SUMMARY | 2024-03-31 11:26 | XMS_ITS | Encounter Summary ---
Author Organization [facility] Healthcare Address [address] [place] [address] Care Team Providers Care It Infrastructure Specialist Name Role Phone Kraig Ching MD Primary Care Provider [phone] Gautam Cope MD Unavailable Tramaine Roe MD Unavailable [phone] Sukhwinder Uribe MD Unavailable [phone] Shay Guillermo MD Unavailable [phone] Marsha Landis RN Unavailable Unavailab le Encounter Details Date Type Department Care Team (Latest Contact Info) Description 01/01/2023 10:20 AM CDT - 01/01/2023 11:59 PM CDT Hospital Encounter [facility] [address] [place] [address] Bilateral rales; Symptoms of upper respiratory infection [...] on file 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 Rayshawnlouie Chase OPERATIONS EXAMINER IMG XR PROCEDURES Final Resul t documented in this encounter Visit Diagnoses Diagnosis Bilateral rales Symptoms of upper respiratory infection (URI) documented in this encounter Care Teams It Infrastructure Specialist Relationship Specialty Start Date End Date Kraig Ching MD [address] [place] [address] PCP - General 07/10/16 Gautam Cope MD [address] [place] [address] Medical Oncologist/Station Air Traffic Control Specialist Medical Oncology 08/18/18 Tramaine Roe MD [address] [place] [address] Referring Physician Urology 08/18/18 Sukhwinder Uribe MD [address] [place] [address] Consulting Physician Urology 08/18/18 Shay Guillermo MD [address] [place] [address] Referring Physician Urology 08/18/18 Marsha Landis, RN Registered Nurse 11/17/18 documented as of this encounter
--- OUTSIDE RECORDS SUMMARY | 2024-03-31 11:26 | XMS_ITS | Encounter Summary ---
Author Organization [facility] Address [address] [place] [address] Phone Care Team Providers Care Tour Leader Name Role Phone Kraig Ching MD Primary Care Provider [phone] Gautam Cope MD Unavailable Tramaine Roe MD Unavailable [phone] Sukhwinder Uribe MD Unavailable [phone] Shay Guillermo MD Unavailable [phone] Marsha Landis RN Unavailable Unavailab le Encounter Details Date Type Department Care Team (Late st Contact Info) Description 12/18/2022 Telephone [facility] Ophthalmology [address] [facility] 2nd [address] [place] [address] Janice Goldman Social History Tobacco Use Types [...] on file 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 Minimize further functional decline 2. Maximize quality of life 3. Control pain Strategies: - Activity/exercise program recommendation - Conservative stepwise pain medicine strategy with multi-disciplinary approach - Recommend healthy lifestyle strategies and compensatory methods as needed documented as of this encounter Visit Diagnoses Not on filedocumented in this encounter Care Teams Tour Leader Relationship Specialty Start Date End Date Kraig Ching MD [address] [facility] [address] [place] [address] PCP - General 07/10/16 Gautam Cope MD [address] [facility] [address] [place] [address] Medical Oncologist/Senior Relationship Manager Medical Oncology 08/18/18 Tramaine Roe MD [address] [facility] [address] [place] [address] Referring Physician Urology 08/18/18 Sukhwinder Uribe MD [address] [facility] [address] [place] [address] Consulting Physician Urology 08/18/18 Shay Guillermo MD [address] [facility] [address] [place] [address] Referring Physician Urology 08/18/18 Marsha Landis, RN Registered Nurse 11/17/18 documented as of this encounter
--- OUTSIDE RECORDS SUMMARY | 2024-03-31 11:26 | XMS_ITS | Encounter Summary ---
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 [address] [place] [address] Encounter for preadmission testing (Primary Dx) Discharge [...] on file Legal Sex Male 4:46 PM JUKEBOX CHECKER Gender Identity Not on file Sexual Orientation Not on file documented as of this encounter Last Filed Vital Signs Vital Sign Reading Time Taken Comments Blood Pressure - - Pulse - - Temperature 36.1 ??C (97 ??F) 02/17/2023 8:37 AM JUKEBOX CHECKER Respiratory Rate - - Oxygen Saturation - [...] 02/17/2023 9:40 AM CST Patient presents to [facility] for cataract procedure. His telemetry shows [...] today as he should be seen by PCP/cutting room supervisor for further workup as soon as possible. Should he develop any symptoms of lightheadedness, shortness of breath, or chest pain, they know to go to the ED. Debbie Raymond MD Anesthesiology BOX CHECKER * Pre-Procedure Instructions - Vale Campbell NP - 02/04/2023 2:46 PM CDT [facility] CPAP Clinic Location: [facility] The night before your surgery: [...] going to be admitted after surgery at [facility], COVID testing may be performed on the day of surgery, even if you are up to date on your COVID-19 vaccine. * If having surgery at [facility], you may want to bring a credit card if you want to use our Mobile Pharmacy for your discharge medications. Mobile pharmacy is not available at [facility], or the [place] [facility]. Outpatient Surgery: * You must [...] day of surgery Accu-Chek Fastclix Lancet Ben[facility] blood glucose diagnostic (Accu-Chek Guide test strips) [...] DNR/DNI Order: No Patient Requests Assistance: No Communication/Station Installer And Repairer Needs Communication Barriers: Visual Communication Needs: Glasses Assistive Devices/DME: Eyeglasses, Walker (walker is a rollator) Hearing - Right Ear: Functional Hearing - Left Ear: Functional Discharge Planning Type of Residence: Private residence Living Arrangements: Spouse/significant other Support Systems: Spouse/significant other Assistance Needed: His will drive him and help care for him after surgery. Patient expects to be discharged to:: Private residence [facility] NO ADDITIONAL COMMENTS/ FOLLOW UP * Pre-Procedure [...] remove nail coverings, artificial nails and nail andorran prior to the day of surgery. You should leave your valuables and any jewelry at home. No metal or piercings are allowed in the operating room. You should bring your insurance card, a photo ID (example: Software Quality Manager's License) and a method of payment for [...] Chart. If you are having surgery at [facility], please arrive on the [...] Remove nail coverings, artificial nails and nail andorran. Place clean linens on your bed the [...] questions, please call the CPAP Staff at [phone], Wednesday-Wednesday 8am-4:30pm. All patients should read the below section: COVID 19 Updates & Visitor Policy: Please access [email or web address] for the most updated information. Information on [facility]: Please view [email or web address] (Patient & Visitor Information) for additional details regarding Advanced Directive forms, AWARE, directions, parking information, lodging, Internet access, dining and more. Information on [facility] or [facility] [place] ([facility]): Please view [email or web address] (Patient and Visitor Information) for parking/directions and more. For MyChart information, to activate account or password recovery, please go to [email or web address] or call [phone] (toll-free: [phone]), Wed- Wednesday 8am-5pm. Information for Suicide Prevention: National Suicide Prevention Lifeline (2-160- 703-FIEA (5560)). Surgery Times: For patients having surgery @ [facility] or [facility] [place] ([facility]), if your surgeon's office has not notified you of your surgery time by NOON THE BUSINESS DAY BEFORE your surgery, please call [phone] and ask for your surgeon's office Dr. [...] Chronic Care Management No change(03/23 1:47 PM JUKEBOX CHECKER) No Ingrid Oden, SHEA Note: Problem: [...] During Ocular Surgery Given 02/17/2023 8:48 AM JUKEBOX CHECKER 0.3 mL Left Eye Lactated Ringer's (LR) [...] Recently Administered Medications Times are shown in JUKEBOX CHECKER. Scheduled Medication Order 02/16/2023 02/17/2023 02/18/2023 BSS [...] 11/2022 documented in this encounter Care Teams Oracle E Business Developer Relationship Specialty Start Date End Date Kraig Ching MD [address] [place] [address] PCP - General 07/10/16 Gautam Cope MD [address] [place] [address] Medical Oncologist/Health Lead Medical Oncology 08/18/18 Tramaine Roe MD [address] [place] [address] Referring Physician Urology 08/18/18 Sukhwinder Uribe MD [address] [place] [address] Consulting Physician Urology 08/18/18 Shay Guillermo MD [address] [place] [address] Referring Physician Urology 08/18/18 Marsha Landis, RN Registered Nurse 11/17/18 documented as of this encounter
--- OUTSIDE RECORDS SUMMARY | 2024-03-31 11:26 | XMS_ITS | Encounter Summary ---
Author Organization [facility] Healthcare Address [address] [place] [address] Care Team Providers Care Intervention Analyst Name Role Phone Kraig Ching MD Primary Care Provider [phone] Gautam Cope MD Unavailable Tramaine Roe MD Unavailable [phone] Sukhwinder Uribe MD Unavailable [phone] Shay Guillermo MD Unavailable [phone] Marsha Landis RN Unavailable Unavailab le Encounter Details Date Type Department Care Team (Latest Contact Info) Description 02/09/2023 9:02 AM CDT - 02/09/2023 11:59 PM CDT Hospital Encounter [facility]) [address] [place] [address] Prostate cancer (HCC) Discharge Disposition: Discharge to [...] on file Legal Sex Male 4:46 PM 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 Testing performed by: [facility], [address] [place] [phone] Blood 02/09/2023 10:2 9 AM CDT 02/09/2023 10:32 AM CDT us Gautam Cope MD LAB BLOOD ORDERABLES Final Resul t [facility] Department [place] [address] * (ABNORMAL) Differential, auto (02/09/2023 10:29 AM CDT) Neutrophil abs 10.2(H) 1.8 - 6.6 K/cumm [facility] Comment:Testing performed by : [facility], [address] [place] [phone] Lymphocyte abs 1.4 1.2 - 3.3 K/cumm [facility] Comment:Testing performed by : [facility], [address] [place] [phone] Monocyte abs 1.0 0.2 - 1.2 K/cumm [facility] Comment:Testing performed by : [facility], [address] [place] [phone] Eosinophil abs 0.1 0.0 - 0.5 K/cumm [facility] Comment:Testing performed by : [facility], [address] [place] [phone] Basophil abs 0.1 0.0 - 0.2 K/cumm [facility] Comment:Testing performed by : [facility], [address] [place] [phone] Neutrophil pct 79.9 % [facility] Comment: Interpretive Data Percent cell count reference ranges are not reported, since discordance with absolute values may lead to misinterpretation of CBC data. Current Interpretive Data was last revised on 2017. Testing performed by: [facility], [address] [place] [phone] Lymphocyte pct 10.6 % [facility] Comment: Interpretive Data Percent cell count reference ranges are not reported, since discordance with absolute values may lead to misinterpretation of CBC data. Current Interpretive Data was last revised on 2017. Testing performed by: [facility], [address] [place] [phone] Monocyte pct 7.7 % [facility] Comment:Testing performed by : [facility], [address] [place] [phone] Eosinophil pct 0.8 % [facility] Comment:Testing performed by : [facility], [address] [place] [phone] Basophil pct 1.0 % [facility] Comment:Testing performed by : [facility], [address] [place] [phone] Blood 02/09/2023 10:2 9 AM CDT 02/09/2023 10:31 AM CDT us Gautam Cope MD LAB BLOOD ORDERABLES Final Resul t [facility] Department [place] [address] * Lactate dehydrogenase (LD) (02/09/2023 10:29 AM CDT) Lactate dehydrogenase (LDH) 177 100 - 250 Units/L [facility] Comment:Testing performed by : [facility], [address] [place] [phone] Blood 02/09/2023 10:2 9 AM CDT 02/09/2023 10:32 AM CDT us Gautam Cope MD LAB BLOOD ORDERABLES Final Resul t [facility] Department [place] [address] * (ABNORMAL) CBC with auto differential (02/09/2023 10:29 AM CDT) WBC 12.7(H) 3.8 - 9.8 K/cumm [facility] Comment:Testing performed by : [address] [phone] Hgb 12.5(L) 13.8 - 17.2 g/dL [facility] Comment: Interpretive Data A reference range for this assay has not been established for patients with an unknown legal sex. Please refer to the laboratory test catalog for established sex-specific reference intervals. Current interpretive data was last revised on 2023. Testing performed by: [facility], [address] [place] [phone] Hct 38.5(L) 40.7 - 50.3 % [facility] Comment: Interpretive Data A reference range for this assay has not been established for patients with an unknown legal sex. Please refer to the laboratory test catalog for established sex-specific reference intervals. Current interpretive data was last revised on 2023. Testing performed by: [facility], [address] [place] [phone] Plt 391 140 - 440 K/cumm [facility] Comment:Testing performed by : [address] [phone] MPV 7.8 6.8 - 10.4 fL [facility] Comment:Testing performed by : [address] [phone] RBC 4.27(L) 4.50 - 5.70 M/cumm [facility] Comment: Interpretive Data A reference range for this assay has not been established for patients with an unknown legal sex. Please refer to the laboratory test catalog for established sex-specific reference intervals. Current interpretive data was last revised on 2023. Testing performed by: [facility], [address] [place] [phone] MCV 90.1 80.0 - 97.6 fL [facility] Comment:Testing performed by : [facility], [address] [place] [phone] MCH 29.3 26.7 - 33.7 pg [facility] Comment:Testing performed by : [facility], [address] [place] [phone] MCHC 32.5(L) 32.7 - 35.5 g/dL [facility] Comment:Testing performed by : [address] [phone] RDW CV 14.3 11.8 - 14.6 % [facility] Comment:Testing performed by : [facility], [address] [place] [phone] NRBC abs 0.00 0.00 - 0.01 K/cumm [facility] Comment:Testing performed by : [facility], [address] [place] [phone] Blood 02/09/2023 10:2 9 AM CDT 02/09/2023 10:31 AM CDT us Gautam Cope MD LAB BLOOD ORDERABLES Final Resul t [facility] Department [place] [address] * (ABNORMAL) Comprehensive metabolic panel (02/09/2023 10:29 AM CDT) Sodium 141 135 - 145 mmol/L [facility] Comment:Testing performed by : [facility], [address] [place] [phone] Potassium, pl 4.2 3.3 - 4.9 mmol/L [facility] Comment:Testing performed by : [address] [phone] Chloride 103 97 - 110 mmol/L [facility] Comment:Testing performed by : [facility], [address] [place] [phone] CO2 30 22 - 32 mmol/L [facility] Comment:Testing performed by : [facility], [address] [place] [phone] Anion gap 8 2 - 15 mmol/L [facility] Comment:Testing performed by : [facility], [address] [place] [phone] BUN 34(H) 6 - 25 mg/dL [facility] Comment:Testing performed by : [facility], [address] [place] [phone] Creatinine 1.97(H) 0.80 - 1.30 mg/dL [facility] Comment:Testing performed by : [facility], [address] [place] [phone] Glucose 108 70 - 199 mg/dL [facility] [...] was last revised 2022. Testing performed by: [facility], [address] [place] [phone] Calcium 9.6 8.5 - 10.3 mg/dL [facility] Comment:Testing performed by : [facility], [address] [place] [phone] Bilirubin, total 0.4 0.1 - 1.2 mg/dL [facility] Comment:Testing performed by : [address] [phone] Protein, pl 7.0 6.5 - 8.5 g/dL [facility] Comment:Testing performed by : [facility], [address] [place] [phone] Albumin 4.2 3.5 - 5.0 g/dL [facility] Comment:Testing performed by : [facility], [address] [facility] [phone] Alk phos 129 40 - 130 Units/L [facility] Comment:Testing performed by : [facility], [address] [facility] [phone] ALT 9 7 - 55 Units/L [facility] Comment:Testing performed by : [facility], [address] [facility] [phone] AST 11 10 - 50 Units/L [facility] Comment:Testing performed by : [facility], [address] [place] [phone] Blood 02/09/2023 10:2 9 AM CDT 02/09/2023 10:32 AM CDT us Gautam Cope MD LAB BLOOD ORDERABLES Final Resul t [facility] [place] [address] * PSA diagnostic (02/09/2023 10:29 AM CDT) [...] LAB BLOOD ORDERABLES Final Resul t [facility] [place] [address] documented in this encounter Visit Diagnoses Diagnosis Prostate cancer (HCC) Malignant neoplasm of prostate documented in this encounter Care Teams Intervention Analyst Relationship Specialty Start Date End Date Kraig Ching MD [address] [place] [address] PCP - General 07/10/16 Gautam Cope MD [address] [place] [address] Medical Oncologist/Senior Drafter Medical Oncology 08/18/18 Tramaine Roe MD [address] [place] [address] Referring Physician Urology 08/18/18 Sukhwinder Uribe MD [address] [place] [address] Consulting Physician Urology 08/18/18 Shay Guillermo MD [address] [place] [address] Referring Physician Urology 08/18/18 Marsha Landis, RN Registered Nurse 11/17/18 documented as of this encounter
--- OUTSIDE RECORDS SUMMARY | 2024-03-31 11:26 | XMS_ITS | Encounter Summary ---
Author Organization [facility] Healthcare Address [address] [place] [address] Care Team Providers Care Websphere Portal Developer Name Role Phone Kraig Ching MD Primary Care Provider [phone] Gautam Cope MD Unavailable Tramaine Roe MD Unavailable [phone] Sukhwinder Uribe MD Unavailable [phone] Shay Guillermo MD Unavailable [phone] Marsha Landis RN Unavailable Unavailab le Encounter Details Date Type Department Care Team (Late st Contact Info) Description 02/17/2023 10:32 AM HEAD OF ETHICS AND COMPLIANCE Anesthesia Event [facility] [address] [place] [address] Renee Hughes, RETAIL FIELD MERCHANDISER [address] [facility] [phone] [place] [address] Anesthesia Record Procedure Summary Procedure Name Responsible [...] Legal Sex Male 4:46 PM HEAD OF ETHICS AND COMPLIANCE Gender Identity Not on file Sexual Orientation Not on file documented as of this encounter OR Notes * Anesthesia Preprocedure Evaluation - Vale Campbell NP - 02/04/2023 2:11 PM CDT Images from the original note were not included. [facility] Preoperative Assessment [facility] Planning Preoperative Evaluation Record Evaluation type/location: TPAP from [facility] Planned procedure site: [facility] OR Date: 02/04/23 NOTE: This note [...] MR - mild; Pertinent negatives: CAD ; UT ; CABG ; valve replacement; atrial fibrillation; [...] negatives: dialysis and nephrolithiasis Comments: Followed by wealth management advisor, Dr Guerrero Musculoskeletal/Pain + Chronic pain - [...] provided by telephone and electronically sent via beModel. Patient verbalized understanding of instructions. Blood bank [...] Please call the CPAP chart room clinician ([phone]) with any questions. Notified surgeon's office regarding above issue(s)-- Staff message sent to [facility] and requested they FU [...] 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 chronic kidney disease ([facility]) 10/15/2021 Gastroesophageal reflux disease 04/08/2021 Secondary hyperparathyroidism of renal origin ([facility]) 09/15/2019 Spinal stenosis of lumbar region with neurogenic claudication 09/09/2018 Sciatica, left side 09/09/2018 Chronic bilateral low back pain with bilateral sciatica 09/09/2018 Prostate cancer ([facility]) 09/06/2018 SBO (small bowel obstruction) (CMS/HCC) ([facility]) 07/15/2018 Chronic diastolic heart failure ([facility]) 01/25/2018 Shortness of breath 01/25/2018 Hypertensive kidney disease with chronic kidney disease stage III ([facility]) 11/25/2017 Duodenal ulcer 11/25/2017 PAF (paroxysmal atrial fibrillation) (CMS/HCC) ([facility]) 10/22/2017 COPD (chronic obstructive pulmonary disease) ([facility]) 10/22/2017 Chronic kidney disease, stage 3b ([facility]) 10/22/2017 Allergy to statin medication 08/30/2017 Tobacco use 08/30/2017 Hyperlipidemia associated with type 2 diabetes mellitus ([facility]) 01/15/2017 Inflamed seborrheic keratosis 10/03/2014 Actinic keratosis 10/03/2014 Benign neoplastic disease 10/03/2014 Angioma 10/03/2014 Vitamin D deficiency 12/15/2013 Hypertension 01/12/2012 Type 2 diabetes mellitus without complication, with long-term current use of insulin ([facility]) ([facility]) 01/12/2012 Hyperlipidemia 01/12/2012 Past Medical History: Diagnosis Date Anemia Chronic pain disorder Diabetes ([facility]) Diverticulitis Esophageal stricture GERD (gastroesophageal reflux [...] Guide test strips) strip -- 11/09/22 -- Kriag Ching MD USE DIRECTED TO TEST BLOOD [...] mg EC tablet 01/26/2023 12/05/22 -- Kraig Cihng MD TAKE 1 TABLET(40 MG) BY MOUTH [...] 1.1 % cream Accu-Chek Fastclix Lancet [facility] blood glucose diagnostic (Accu-Chek Guide test strips) [...] Management No change(03/23 1:47 PM HEAD OF ETHICS AND COMPLIANCE) No Ingrid Oden, RN Note: Problem: Chronic Pain Goals: 1. Minimize further functional decline 2. Maximize quality of life 3. Control pain Strategies: - Activity/exercise program recommendation - Conservative stepwise pain medicine strategy with multi-disciplinary approach - Recommend healthy lifestyle strategies and compensatory methods as needed documented as of this encounter Visit Diagnoses Not on filedocumented in this encounter Care Teams Websphere Portal Developer Relationship Specialty Start Date End Date Kraig Ching MD [address] [place] [address] PCP - General 07/10/16 Gautam Cope MD [address] [place] [address] Medical Oncologist/Clock And Watch Hands Dipper Medical Oncology 08/18/18 Tramaine Roe MD [address] [place] [address] Referring Physician Urology 08/18/18 Sukhwinder Uribe MD [address] [place] [address] Consulting Physician Urology 08/18/18 Shay Guillermo MD [address] [place] [address] Referring Physician Urology 08/18/18 Marsha Landis, RN Registered Nurse 11/17/18 documented as of this encounter
--- OUTSIDE RECORDS SUMMARY | 2024-03-31 11:26 | XMS_ITS | Encounter Summary ---
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] file Legal Sex Male 4:46 PM PRODUCT MARKETING ENGINEER Gender Identity Not on file Sexual [...] 30-59 ml/min ([facility]) TAKE 1 TABLET(12.5 MG) BY MOUTH [...] to monitor diabetes and kidney status, etc. 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 ??Multilevel degenerative disc disease in the lumbar spine, greatest and severe at L1-L2. 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 documented in this encounter Care Teams School Standards Coach Relationship Specialty Start Date End Date Kraig Ching MD [address] [place] [address] PCP - General 07/10/16 Gautam Cope MD [address] [place] [address] Medical Oncologist/Captain Fishing Vessel Medical Oncology 08/18/18 Tramaine Roe MD [address] [place] [address] Referring Physician Urology 08/18/18 Sukhwinder Uribe MD [address] [place] [address] Consulting Physician Urology 08/18/18 Shay Guillermo MD [address] [facility] [address] [place] [address] Referring Physician Urology 08/18/18 Marsha Landis, RN Registered Nurse 11/17/18 documented as of this encounter
--- OUTSIDE RECORDS SUMMARY | 2024-03-31 11:27 | XMS_ITS | Encounter Summary ---
Author Organization [facility] Medical Group Address [address] [place] [address] Care Team Providers Care Gold Leaf Gilder Name Role Phone Kraig Ching MD Primary Care Provider [phone] Gautam Cope MD Unavailable Tramaine Roe MD Unavailable [phone] Sukhwinder Uribe MD Unavailable [phone] Shay Guillermo MD Unavailable [phone] Marsha Landis RN Unavailable Unavailab le Reason for Visit * Reason Onset Date Comments Covid-19 Home Monitoring 06/24/2022 Encounter Details Date Type Department Care Team (Late st Contact Info) Description 06/24/2022 Telephone [facility] Accountable Care Organization [address] [place] [address] Priyanka Lynch [address] [place] [address] Covid-19 Home Monitoring Social History Tobacco Use [...] on file 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 life cycle assessment analyst of each of the following symptoms the [...] to monitor diabetes and kidney status, etc. [facility] Chronic Pain Care Plan Chronic Care Management No change(03/23 1:47 PM PHLEBOTOMY DIRECTOR) No Ingrid Oden, SHEA Note: Problem: Chronic Pain Goals: 1. Minimize further functional decline 2. Maximize quality of life 3. Control pain Strategies: - Activity/exercise program recommendation - Conservative stepwise pain medicine strategy with multi-disciplinary approach - Recommend healthy lifestyle strategies and compensatory methods as needed documented as of this encounter Visit Diagnoses Not on filedocumented in this encounter Care Teams Gold Leaf Gilder Relationship Specialty Start Date End Date Kraig Ching MD [address] [facility] [address] [place] [address] PCP - General 07/10/16 Gautam Cope MD [id number] [place] [address] Medical Oncologist/Measurement Technician Medical Oncology 08/18/18 Tramaine Roe MD [id number] [place] [address] Referring Physician Urology 08/18/18 Sukhwinder Uribe MD [address] [facility] [address] [place] [address] Consulting Physician Urology 08/18/18 Shay Guillermo MD [address] [facility] [address] [place] [address] Referring Physician Urology 08/18/18 Marsha Landis RN Registered Nurse 11/17/18 documented as of this encounter
--- OUTSIDE RECORDS SUMMARY | 2024-03-31 11:27 | XMS_ITS | Encounter Summary ---
Author Organization [facility] Address [address] [place] [address] Phone Care Team Providers Care Supervisor Nutritional Yeast Name Role Phone Kraig Ching MD Primary Care Provider [phone] Gautam Cope MD Unavailable Tramaine Roe MD Unavailable Sukhwinder Uribe MD Unavailable [phone] Shay Guillermo MD Unavailable [phone] Marsha Landis RN Unavailable Unavailab le Reason for Visit * Reason Comments Cataract * Consultation (Routine) - Closed Specialty Diagnoses / Procedures Referred By Contulices t Referred To Contact Ophthalmology Diagnoses Cataract of both eyes, unspecified cataract type Kraig Ching MD [address] [facility] [address] [place] [address] Phone: tel: fax: Nalini Son MD [address] [facility] OPHTHALMOLOGY, [facility] [address] [place] [address] Phone: tel: fax: Referral ID Status Reason Start Date Expiration Date V isits Requested Visits Authorized [id number] Closed Specialty Services Required 08/18/2022 09/17/2023 6 6 Encounter Details Date Type Department Care Team (Late st Contact Info) Description 10/30/2022 3:15 PM CDT Office Visit [facility] Ophthalmology [address] 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 Will contact his account development representative (Dr. Whitley Andersen in [place], [place]) to get other details regarding this. [...] to monitor diabetes and kidney status, etc. [facility] Chronic Pain Care Plan Chronic Care Management No change(03/23 1:47 PM CATALYST OPERATOR GASOLINE) No Ingrid Oden, RN Note: Problem: Chronic [...] with long-term current use of insulin (CMS/HCC) ([facility]) documented in this encounter Discontinued [...] Periphery Normal Normal Manifest Refraction Sphere Cylinder [place] Right eye -1.50 +1.50 005 NI Left eye -2.00 +1.75 030 NI Care Teams Supervisor Nutritional Yeast Relationship Specialty Start Date End Date Kraig Ching MD [address] [facility] [address] [place] [address] PCP - General 07/10/16 Gautam Cope MD [address] [facility] [address] [place] [address] Medical Oncologist/V Belt Inspector Medical Oncology 08/18/18 Tramaine Roe MD [address] [facility] [address] [place] [address] Referring Physician Urology 08/18/18 Sukhwinder Uribe MD [address] [facility] [address] [place] [address] Consulting Physician Urology 08/18/18 Shay Guillermo MD [address] [facility] [address] [place] [address] Referring Physician Urology 08/18/18 Marsha Landis, RN Registered Nurse 11/17/18 documented as of this encounter
--- OUTSIDE RECORDS SUMMARY | 2024-03-31 11:27 | XMS_ITS | Encounter Summary ---
Author Organization [facility] Address [address] [facility] [address] [place] [address] Care Team Providers Care Quality Assurance Nurse Name Role Phone Kraig Ching MD Primary Care Provider [phone] Gautam Cope MD Unavailable Tramaine Roe MD Unavailable [phone] Sukhwinder Uribe MD Unavailable [phone] Shay Guillermo MD Unavailable [phone] Marsha Landis RN Unavailable Unavailab le Reason for Visit * Reason Onset Date Comments Medical Question/Miscellaneous 08/10/2022 Encounter Details Date Type Department Care Team (Late st Contact Info) Description 08/10/2022 Telephone [facility] [address] [facility] [address] [place] [address] Kraig Ching MD [address] 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 Yes-Action [...] Chronic Care Management No change(03/23 1:47 PM BRICKLAYER) No Ingrid Oden, SHEA Note: Problem: Chronic Pain Goals: 1. Minimize further functional decline 2. Maximize quality of life 3. Control pain Strategies: - Activity/exercise program recommendation - Conservative stepwise pain medicine strategy with multi-disciplinary approach - Recommend healthy lifestyle strategies and compensatory methods as needed documented as of this encounter Visit Diagnoses Not on filedocumented in this encounter Care Teams Quality Assurance Nurse Relationship Specialty Start Date End Date Kraig Ching MD [address] [place], [place] [id number] PCP - General 07/10/16 Gautam Cope MD [address] [place] [address] Medical Oncologist/Lot Porter Medical Oncology 08/18/18 Tramaine Roe MD [address] [facility] [address] [place] [address] Referring Physician Urology 08/18/18 Sukhwinder Uribe MD [address] [facility] [address] [place] [address] Consulting Physician Urology 08/18/18 Shay Guillermo MD [address] [facility] [address] [place] [address] Referring Physician Urology 08/18/18 Marsha Landis, RN Registered Nurse 11/17/18 documented as of this encounter
--- OUTSIDE RECORDS SUMMARY | 2024-03-31 11:27 | XMS_ITS | Encounter Summary ---
Author Organization [facility] Address [address] [place] [address] Phone Care Team Providers Care Business Director Name Role Phone Kraig Ching MD Primary Care Provider [phone] Gautam Cope MD Unavailable Tramaine Roe MD Unavailable [phone] Sukhwinder Uribe MD Unavailable [phone] Shay Guillermo MD Unavailable [phone] Marsha Landis RN Unavailable Unavailab le Reason for Visit * Consultation (Routine) - Authorized Specialty Diagnoses / Procedures Referred By Saleem anrvaez Referred To Contact Oncology Diagnoses Prostate cancer (HCC) Tramaine Roe MD [address] [place] [address] Phone: tel: fax: Gautam Cope MD [address] [facility], [address] [place] [address] Phone: tel: fax: Referral ID Status Reason Start Date Expiration Date Visits Requested Visits Authorized [id number] Authorized Specialty Services Required 08/15/2018 04/11/2024 99 99 Encounter Details Date Type Department Care Team (Late st Contact Info) Description 11/17/2022 10:45 AM CDT Office Visit 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 Guillermo, showing Austin 4 + 3 disease, with extracapsular extension [...] in April. He was recently diagnosed with Austin 7 disease in 1999, treated with a [...] - 11/17/2022 11:42 AM Gautam Cope M.D. posting machine operator GLORIA/lul documented in this encounter Plan of [...] to monitor diabetes and kidney status, etc. [facility] Chronic Pain Care Plan Chronic Care Management No change(03/23 1:47 PM IDENTIFICATION PRINTING MACHINE SETTER) No Ingrid Oden, SHEA Note: Problem: Chronic [...] AM CDT) PSA-Total <0.02 <=6.20 ng/mL [facility] Comment: Interpretive Data ?AGE ? SEX ?REFERENCE [...] BLOOD ORDERABLES Final Resul t [facility] Department [place] [address] * (ABNORMAL) Comprehensive metabolic panel (02/09/2023 10:29 AM CDT) Sodium 141 135 - 145 mmol/L [facility] Comment:Testing performed by : [facility], [address] [place] [phone] Potassium, pl 4.2 3.3 - 4.9 mmol/L [facility] Comment:Testing performed by : [facility], [address] [place] [phone] Chloride 103 97 - 110 mmol/L [facility] Comment:Testing performed by : [facility], [address] [place] [address] CO2 30 22 - 32 mmol/L [facility] Comment:Testing performed by : [facility], [address] [place] [address] Anion gap 8 2 - 15 mmol/L [facility] Comment:Testing performed by : [facility], [address] [place] [address] BUN 34(H) 6 - 25 mg/dL [facility] Comment:Testing performed by : [facility] [address] [address] Creatinine 1.97(H) 0.80 - 1.30 mg/dL [facility] Comment:Testing performed by : [facility], [address] [place] [address] Glucose 108 70 - 199 mg/dL [facility] [...] was last revised 2022. Testing performed by: [address] [address] Calcium 9.6 8.5 - 10.3 mg/dL [facility] Comment:Testing performed by : [facility], [address] [place] [address] Bilirubin, total 0.4 0.1 - 1.2 mg/dL [facility] Comment:Testing performed by : [address] [address] Protein, pl 7.0 6.5 - 8.5 g/dL [facility] Comment:Testing performed by : [address] [address] Albumin 4.2 3.5 - 5.0 g/dL [facility] Comment:Testing performed by : [address] [address] Alk phos 129 40 - 130 Units/L [facility] Comment:Testing performed by : [address] [address] ALT 9 7 - 55 Units/L [facility] Comment:Testing performed by : [address] [address] AST 11 10 - 50 Units/L [facility] Comment:Testing performed by : [facility], [address] [place] [address] Blood 02/09/2023 10:2 9 AM CDT 02/09/2023 10:32 AM CDT us Gautam Cope MD LAB BLOOD ORDERABLES Final Resul t [facility] Department [place] [address] * (ABNORMAL) CBC with auto differential (02/09/2023 10:29 AM CDT) WBC 12.7(H) 3.8 - 9.8 K/cumm [facility] Comment:Testing performed by : [facility], [address] [place] [address] Hgb 12.5(L) 13.8 - 17.2 g/dL [facility] Comment: Interpretive Data A reference range for this assay has not been established for patients with an unknown legal sex. Please refer to the laboratory test catalog for established sex-specific reference intervals. Current interpretive data was last revised on 2023. Testing performed by: [facility], [address] [place] [address] Hct 38.5(L) 40.7 - 50.3 % [facility] Comment: Interpretive Data A reference range for this assay has not been established for patients with an unknown legal sex. Please refer to the laboratory test catalog for established sex-specific reference intervals. Current interpretive data was last revised on 2023. Testing performed by: [facility], [address] [place] [address] Plt 391 140 - 440 K/cumm [facility] Comment:Testing performed by : [facility], [address] [place] [phone] MPV 7.8 6.8 - 10.4 fL [facility] Comment:Testing performed by : [address] [address] RBC 4.27(L) 4.50 - 5.70 M/cumm [facility] Comment: Interpretive Data A reference range for this assay has not been established for patients with an unknown legal sex. Please refer to the laboratory test catalog for established sex-specific reference intervals. Current interpretive data was last revised on 2023. Testing performed by: [facility], [address] [place] [address] MCV 90.1 80.0 - 97.6 fL [facility] Comment:Testing performed by : [facility], [address] [place] [address] MCH 29.3 26.7 - 33.7 pg [facility] Comment:Testing performed by : [facility], [address] [place] [address] MCHC 32.5(L) 32.7 - 35.5 g/dL [facility] Comment:Testing performed by : [facility], [address] [place] [address] RDW CV 14.3 11.8 - 14.6 % [facility] Comment:Testing performed by : [facility], [address] [place] [address] NRBC abs 0.00 0.00 - 0.01 K/cumm [facility] Comment:Testing performed by : [facility], [address] [place] [address] Blood 02/09/2023 10:2 9 AM CDT 02/09/2023 10:31 AM CDT us Gautam Cope MD LAB BLOOD ORDERABLES Final Resul t [facility] [place] [address] * Lactate dehydrogenase (LD) (02/09/2023 10:29 AM CDT) Lactate dehydrogenase (LDH) 177 100 - 250 Units/L [facility] Comment:Testing performed by : [facility], [address] [place] [address] Blood 02/09/2023 10:2 9 AM CDT 02/09/2023 10:32 AM CDT us Gautma Cope MD LAB BLOOD ORDERABLES Final Resul t [facility] Department [place] [address] documented in this encounter Visit Diagnoses Diagnosis [...] 02/09/2023 documented in this encounter Care Teams Business Director Relationship Specialty Start Date End Date Kraig Ching MD [address] [facility] [address] [place] [address] PCP - General 07/10/16 Gautam Cope MD [address] [facility] [address] [place] [address] Medical Oncologist/Access Developer Medical Oncology 08/18/18 Tramaine Roe MD [address] [place] [address] Referring Physician Urology 08/18/18 Sukhwinder Uribe MD [address] [facility] [address] [place] [address] Consulting Physician Urology 08/18/18 Shay Guillermo MD [address] [place] [address] Referring Physician Urology 08/18/18 Marsha Landis RN Registered Nurse 11/17/18 documented as of this encounter
--- OUTSIDE RECORDS SUMMARY | 2024-03-31 11:27 | XMS_ITS | Encounter Summary ---
Author Organization [facility] Address [address] [facility] [address] [place] [address] Care Team Providers Care Deaf Interpreter Name Role Phone Kraig Ching MD Primary Care Provider [phone] Gautam Cope MD Unavailable Tramaine Roe MD Unavailable [phone] Sukhwinder Uribe MD Unavailable [phone] Shay Guillermo MD Unavailable [phone] Marsha Landis RN Unavailable Unavailab le Reason for Visit * Reason Onset Date Comments Recommendation Request 07/07/2022 Encounter Details Date Type Department Care Team (Late st Contact Info) Description 07/07/2022 Telephone [facility] [address] [facility] [address] [place] [address] Kraig Ching MD [address] [facility] [address] [place] [address] Recommendation Request Social History Tobacco [...] on file 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 LVMS * Telephone Encounter - Comfort Salas - 07/07/2022 9:50 AM CDT Recommendation Request Note: This request is for a specialty recommendation, not an insurance referral. Specialty: eye doctor Why does the patient want to go to this specialist? Cataract surgery Caller's Callback #: [phone] Additional Comments/Concerns: Patient would like to establish with someone at the [facility] building. Does message need to be routed? [...] Chronic Care Management No change(03/23 1:47 PM INDUSTRIAL MANUFACTURING TECHNICIAN) No Ingrid Oden, SHEA Note: Problem: Chronic Pain Goals: 1. Minimize further functional decline 2. Maximize quality of life 3. Control pain Strategies: - Activity/exercise program recommendation - Conservative stepwise pain medicine strategy with multi-disciplinary approach - Recommend healthy lifestyle strategies and compensatory methods as needed documented as of this encounter Visit Diagnoses Not on filedocumented in this encounter Care Teams Deaf Interpreter Relationship Specialty Start Date End Date Kraig Ching MD [address] [facility] [address] [place] [address] PCP - General 07/10/16 Gautam Cope MD [address] [facility] [address] [place] [address] Medical Oncologist/Handkerchief Folder Medical Oncology 08/18/18 Tramaine Roe MD [address] [facility] [address] [place] [address] Referring Physician Urology 08/18/18 Sukhwinder Uribe MD [address] [facility] [address] [place] [address] Consulting Physician Urology 08/18/18 Shay Guillermo MD [address] [facility] [address] [place] [address] Referring Physician Urology 08/18/18 Marsha Landis, RN Registered Nurse 11/17/18 documented as of this encounter
--- OUTSIDE RECORDS SUMMARY | 2024-03-31 11:27 | XMS_ITS | Encounter Summary ---
Author Organization [facility] Address [address] [facility] [address] [place] [address] Care Team Providers Care Tradeshow Worker Name Role Phone Kraig Ching MD Primary Care Provider [phone] Gautam Cope MD Unavailable Tramaine Roe MD Unavailable [phone] Sukhwinder Uribe MD Unavailable [phone] Shay Guillermo MD Unavailable [phone] Marsha Landis RN Unavailable Unavailab le Reason for Visit * Reason Onset Date Comments Covid-19 Home Monitoring 06/27/2022 Encounter Details Date Type Department Care Team (Late st Contact Info) Description 06/27/2022 Telephone [facility] Accountable Care Organization [address] [place] [address] Janice Davidson RN [address] [place] [address] [address] [place] [address] Covid-19 Home Monitoring Social History Tobacco Use [...] file 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 Next Program Call Due: Patient is [facility] x 3 consecutive calls. No more attempts [...] Care Management No change(03/23 1:47 PM HAND WASHER) No Ingrid Oden, SHEA Note: Problem: Chronic Pain Goals: 1. Minimize further functional decline 2. Maximize quality of life 3. Control pain Strategies: - Activity/exercise program recommendation - Conservative stepwise pain medicine strategy with multi-disciplinary approach - Recommend healthy lifestyle strategies and compensatory methods as needed documented as of this encounter Visit Diagnoses Not on filedocumented in this encounter Care Teams Tradeshow Worker Relationship Specialty Start Date End Date Kraig Ching MD [address] [facility] [address] [place] [address] PCP - General 07/10/16 Gautam Cope MD [id number] [place] [address] Medical Oncologist/Folder Machine Medical Oncology 08/18/18 Tramaine Roe MD [address] [address] Referring Physician Urology 08/18/18 Sukhwinder Uribe MD [address] [place] [address] Consulting Physician Urology 08/18/18 Shay Guillermo MD [address] [place] [address] Referring Physician Urology 08/18/18 Marsha Landis, RN Registered Nurse 11/17/18 documented as of this encounter
--- OUTSIDE RECORDS SUMMARY | 2024-03-31 11:27 | XMS_ITS | Encounter Summary ---
Author Organization [facility] Address [address] [place] [address] Phone Care Team Providers Care Autopsy Pathologist Name Role Phone Kraig Ching MD Primary Care Provider [phone] Gautam Cope MD Unavailable Tramaine Roe MD Unavailable [phone] Sukhwinder Uribe MD Unavailable [phone] Shay Guillermo MD Unavailable [phone] Masrha Landis RN Unavailable Unavailab le Reason for Visit * Reason Comments Injections Eligard * Episode Based Medications (Routine) - Authorized Specialty Diagnoses / Procedures Referred By Contac t Referred To Contact Oncology Diagnoses Prostate cancer (HCC) Procedures AR LEUPROLIDE ACETATE SUSPNSION Leuprolide Every 3 Months - Prostate Gautam Cope MD [address] [facility] [address] [place] [address] Phone: tel: fax: [facility] [address] [facility] [address] [place] [address] Referral ID Status Reason Start Date Expiration Date V isits Requested Visits Authorized [id number] Authorized 09/06/2018 07/11/2024 1 50 Encounter Details Date Type Department Care Team (Late st Contact Info) Description 08/25/2022 11:45 AM CDT Infusion 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 Gender Identity Not on file Sexual Orientation Not on file documented as of this encounter Nursing Notes * Patty Siegel, RN - 08/25/2022 11:45 AM CDT Oncology Nursing Note [facility] ONCOLOGY David Wei is [...] Care Management No change(03/23 1:47 PM CITY DISTRIBUTION CLERK) No Ingrid Oden, RN Note: Problem: [...] 08/10 documented in this encounter Care Teams Autopsy Pathologist Relationship Specialty Start Date End Date Kraig Ching MD [address] [place] [address] PCP - General 07/10/16 Gautam Cope MD [address] [facility] [address] [place] [address] Medical Oncologist/Gas Brazer Medical Oncology 08/18/18 Tramaine Roe MD [address] [facility] [address] [place] [address] Referring Physician Urology 08/18/18 Sukhwinder Uribe MD [address] [facility] [address] [place] [address] Consulting Physician Urology 08/18/18 Shay Guillermo MD [address] [address] Referring Physician Urology 08/18/18 Marsha Landis RN Registered Nurse 11/17/18 documented as of this encounter
--- OUTSIDE RECORDS SUMMARY | 2024-03-31 11:27 | XMS_ITS | Encounter Summary ---
Author Organization [facility] [employer] of [facility] Address [address] [place] [address] Phone Care Team Providers Care Embedded Software Programmer Name Role Phone Kraig Ching MD Primary Care Provider Gautam Cope MD Unavailable Tramaine Roe MD Unavailable [phone] Sukhwinder Uribe MD Unavailable [phone] Shay Guillermo MD Unavailable [phone] Marsha Landis RN Unavailable Unavailab le Reason for Visit * Consultation (Routine) - Authorized Specialty Diagnoses / Procedures Referred By Saleem narvaez Referred To Contact Oncology Diagnoses Prostate cancer (HCC) Tramaine Roe MD [address] [facility] [address] [place] [address] Phone: tel: fax: Gautam Coep MD [address] [facility]OGY, [address], [address] [place] [address] Phone: tel: fax: Referral ID Status Reason Start Date Expiration Date Visits Requested Visits Authorized [id number] Authorized Specialty Services Required 08/15/2018 04/11/2024 99 99 Encounter Details Date Type Department Care Team (Late st Contact Info) Description 08/25/2022 10:45 AM CDT Office Visit [facility] Oncology [address] 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 Guillermo, and his pathology showed [place] 4 + 3 disease with extracapsular extension, [...] he has been in contact with an senior informatica etl developer. His recently had cataract surgery, so her vision has been restored. Her greatest complaint now is osteoarthritis in her knees. Mr. Drew continues to be followed by the haz tech for his chronic kidney disease. His other comorbidities include hypertension, diabetes, paroxysmal atrial fibrillation, and hyperlipidemia. His blood pressure today is a little higher. He checks it routinely at home, and admits that hisblood pressure is a little higher in the morning, and improves throughout the day. Lisinopril was in creased to 30 mg by his haz tech. Finally, he has a history of peripheral [...] 3. Chronic kidney disease, followed by the haz tech. 4. Herniated disk, which limits his activity level. He will take an occasional oxycodone. 5. Ground-glass opacities in his lungs. Numerous CT scans have remained stable. We will repeat another CT scan of his chest in early 2023. 6. Decreased vision. He will follow up with the senior informatica etl developer Mr. Drew continues to do well with [...] - 08/25/2022 03:02 PM Gautam Cope M.D. dog sitter ISAK/Shelia documented in this encounter Plan of [...] Chronic Care Management No change(03/23 1:47 PM VISITOR SERVICES TECHNICIAN) No Ingrid Oden RN Note: Problem: [...] LAB BLOOD ORDERABLES Final Resul t [facility] One [facility] [place] [address] * (ABNORMAL) Comprehensive metabolic panel (11/17/2022 10:18 AM CDT) Sodium 141 135 - 145 mmol/L [facility] Comment:Testing performed by : [facility], [address] [place] [phone] Potassium, pl 4.9 3.3 - 4.9 mmol/L [facility] Comment:Testing performed by : [facility], [address] [place] [phone] Chloride 106 97 - 110 mmol/L [facility] Comment:Testing performed by : [facility], [address] [place] [phone] CO2 27 22 - 32 mmol/L [facility] Comment:Testing performed by : [facility], [address] [place] [phone] Anion gap 8 2 - 15 mmol/L [facility] Comment:Testing performed by : [facility], [address] [place] [phone] BUN 42(H) 6 - 25 mg/dL [facility] Comment:Testing performed by : [facility], [address] [place] [phone] Creatinine 2.28(H) 0.80 - 1.30 mg/dL [facility] Comment:Testing performed by : [facility], [address] [place] [phone] Glucose 187 70 - 199 mg/dL [facility] Comment: Interpretive Data Fasting glucose [...] was last revised 2022. Testing performed by: [facility], [address] [place] [phone] Calcium 9.2 8.5 - 10.3 mg/dL [facility] Comment:Testing performed by : [facility], [address] [place] [phone] Bilirubin, total 0.4 0.1 - 1.2 mg/dL [facility] Comment:Testing performed by : [facility], [address] [place] [phone] Protein, pl 6.6 6.5 - 8.5 g/dL [facility] Comment:Testing performed by : [facility], [address] [place] [phone] Albumin 4.0 3.5 - 5.0 g/dL MERLIEN [facility] Comment:Testing performed by : [facility], [address] [place] [phone] Alk phos 112 40 - 130 Units/L MERLINE [facility] Comment:Testing performed by : [address] [phone] ALT 12 7 - 55 Units/L [facility]LINE [facility] Comment:Testing performed by : [facility], [address] [place] [phone] AST 13 10 - 50 Units/L [facility] Comment:Testing performed by : [facility], [address] [place] [phone] Blood 11/17/2022 10:1 8 AM CDT 11/17/2022 10:26 AM CDT us Gautam Cope MD LAB BLOOD ORDERABLES Final Resul t [facility]LINE [facility] One [facility] Department of Laboratories [place], [place] [id number] * (ABNORMAL) CBC with auto differential (11/17/2022 10:18 AM CDT) WBC 11.2(H) 3.8 - 9.8 K/cumm [facility] Comment:Testing performed by : [address] [phone] Hgb 12.1(L) 13.8 - 17.2 g/dL [facility] Comment:Testing performed by : [facility], [address] [place], [place] [phone] Hct 37.2(L) 40.7 - 50.3 % [facility] Comment:Testing performed by : [facility], [address] [place], [place] [phone] Plt 343 140 - 440 K/cumm [facility] Comment:Testing performed by : [place] [id number] MPV 7.6 6.8 - 10.4 fL [facility] Comment:Testing performed by : [place] [id number] RBC 4.17(L) 4.50 - 5.70 M/cumm [facility] Comment:Testing performed by : [place] [id number] MCV 89.2 80.0 - 97.6 fL [facility] Comment:Testing performed by : [place] [id number] MCH 28.9 26.7 - 33.7 pg [facility] Comment:Testing performed by : [place] [id number] MCHC 32.5(L) 32.7 - 35.5 g/dL [facility] Comment:Testing performed by : [place] [id number] RDW CV 14.5 11.8 - 14.6 % [facility] Comment:Testing performed by : [place] [id number] NRBC abs 0.00 0.00 - 0.01 K/cumm [facility] Comment:Testing performed by : [place] [id number] Blood 11/17/2022 10:1 8 AM CDT 11/17/2022 10:26 AM CDT us Gautam Cope MD LAB BLOOD ORDERABLES Final Resul t [facility] One [facility] [place] [address] * Lactate dehydrogenase (LD) (11/17/2022 10:18 AM CDT) Lactate dehydrogenase (LDH) 161 100 - 250 Units/L [facility] Comment:Testing performed by : [facility], [address] [facility] [phone] Blood 11/17/2022 10:1 8 AM CDT 11/17/2022 10:26 AM CDT us Gautam Cope MD LAB BLOOD ORDERABLES Final Resul t [facility] One [facility] [place] [address] documented in this encounter Visit Diagnoses Diagnosis [...] 11/17/2022 documented in this encounter Care Teams Embedded Software Programmer Relationship Specialty Start Date End Date Kraig Ching MD [address] [facility] [address] [place] [address] PCP - General 07/10/16 Gautam Cope MD [address] [facility] [address] [place] [address] Medical Oncologist/Roll Cutting Operator Medical Oncology 08/18/18 Tramaine Roe MD [address] [facility] [address] [place] [address] Referring Physician Urology 08/18/18 Sukhwinder Uribe MD [address] [facility] [address] [place] [address] Consulting Physician Urology 08/18/18 Shay Guillermo MD [address] [facility] [address] [place] [address] Referring Physician Urology 08/18/18 Marsha Landis, RN Registered Nurse 11/17/18 documented as of this encounter
--- OUTSIDE RECORDS SUMMARY | 2024-03-31 11:27 | XMS_ITS | Encounter Summary ---
Author Organization [facility] [employer] [facility] Address [address] [place] [address] Phone Care Team Providers Care Toe Pounder Name Role Phone Kraig Ching MD Primary Care Provider [phone] Gautam Cope MD Unavailable Tramaine Roe MD Unavailable [phone] Sukhwindre Uribe MD Unavailable [phone] Shay Guillermo MD Unavailable [phone] Marsha Landis RN Unavailable Unavailab le Reason for Visit * Consultation (Routine) - Authorized Specialty Diagnoses / Procedures Referred By Saleem narvaez Referred To Contact Oncology Diagnoses Prostate cancer (HCC) Tramaine Roe MD [address] [facility] [address] [place] [address] Phone: tel: fax: Gautam Cope MD [address] [facility] IM MEDICAL ONCOLOGY, [address], [address], [address] [place] [address] Phone: tel: fax: Referral ID Status Reason Start Date Expiration Date Visits Requested Visits Authorized [id number] Authorized Specialty Services Required 08/15/2018 04/11/2024 99 99 Encounter Details Date Type Department Care Team (Late st Contact Info) Description 11/17/2022 10:15 AM CDT Lab [facility] Oncology [address] [facility] Advanced [facility] 7th [place] [address] [place] [address] Prostate cancer (HCC) Social History [...] on file 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 Gender Identity Not on file Sexual [...] Chronic Care Management No change(03/23 1:47 PM RESIDENTIAL ENERGY AUDITOR) No Ingrid Oden, SHEA Note: Problem: Chronic [...] 11/17/2022 documented in this encounter Care Teams Toe Pounder Relationship Specialty Start Date End Date Kraig Ching MD [address] [place] [address] PCP - General 07/10/16 Gautam Cope MD [address] [place] [address] Medical Oncologist/Chief Unit Forester Medical Oncology 08/18/18 Tramaine Roe MD [address] [place] [address] Referring Physician Urology 08/18/18 Sukhwinder Uribe MD [address] [facility] [address] [place] [address] Consulting Physician Urology 08/18/18 Shay Guillermo MD [address] [facility] [address] [place] [address] Referring Physician Urology 08/18/18 Marsha Landis, RN Registered Nurse 11/17/18 documented as of this encounter
--- OUTSIDE RECORDS SUMMARY | 2024-03-31 11:27 | XMS_ITS | Encounter Summary ---
Author Organization [facility] Address [address] [place] [address] Phone Care Team Providers Care Dietary Tech Name Role Phone Kraig Ching MD Primary Care Provider Gautam Cope MD Unavailable Tramaine Roe MD Unavailable [phone] Sukhwinder Uribe MD Unavailable Shay Guillermo MD Unavailable [phone] Marsha Landis RN Unavailable Unavailab le Encounter Details Date Type Department Care Team (Late st Contact Info) Description 11/18/2022 Orders Only [facility] Oncology [address] [facility] 7th [place] [address] [place] [address] Gautam Cope MD [address] [facility] [address] [place] [address] Social History Tobacco Use Types Packs/Day Years [...] file 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 Minimize further functional decline 2. Maximize quality of life 3. Control pain Strategies: - Activity/exercise program recommendation - Conservative stepwise pain medicine strategy with multi-disciplinary approach - Recommend healthy lifestyle strategies and compensatory methods as needed documented as of this encounter Visit Diagnoses Not on filedocumented in this encounter Care Teams Dietary Tech Relationship Specialty Start Date End Date Kraig Ching MD [address] [place] [address] PCP - General 07/10/16 Gautam Cope MD [address] [place] [address] Medical Oncologist/Oil Burner Mechanic Medical Oncology 08/18/18 Tramaine Roe MD [address] [place] [address] Referring Physician Urology 08/18/18 Sukhwinder Uribe MD [address] [place] [address] Consulting Physician Urology 08/18/18 Shay Guillermo MD [address] [place] [address] Referring Physician Urology 08/18/18 Marsha Landis, RN Registered Nurse 11/17/18 documented as of this encounter
--- OUTSIDE RECORDS SUMMARY | 2024-03-31 11:27 | XMS_ITS | Encounter Summary ---
Author Organization [facility] [employer] [facility] Address [address] [place] [address] Phone Care Team Providers Care Ticket Machine Operator Name Role Phone Kraig Ching MD Primary Care Provider [phone] Gautam Cope MD Unavailable Tramaine Roe MD Unavailable [phone] Sukhwinder Uribe MD Unavailable [phone] Shay Guillermo MD Unavailable [phone] Marsha Landis RN Unavailable Unavailab le Reason for Visit * Renal Disease (Routine) - Closed Specialty Diagnoses / Procedures Referred By Contulices t Referred To Contact Nephrology Diagnoses GABRIELA (acute kidney injury) (HCC) Stage 3 chronic kidney disease, unspecified whether stage 3a or 3b CKD (HCC) Kraig Ching MD [address] [facility] [address] [place] [address] Phone: tel: fax: Lin Guerrero MD [address] [facility] [address] [place] [address] Phone: tel: fax: Referral ID Status Reason Start Date Expiration Date V isits Requested Visits Authorized [id number] Closed Specialty Services Required 10/03/2021 07/28/2023 25 Encounter Details Date Type Department Care Team (Late st Contact Info) Description 07/22/2022 10:50 AM CDT Office Visit [facility] Nephrology [address] [facility] 5th [place] [address] [place] [address] Chronic kidney disease, stage 3b (HCC) (Primary [...] on file 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 He was given remdesivir and [...] with labs. Raj Faria MD Nephrology fellow [facility] Nephrology (Team Li) Cosigned by Lin Guerrero [...] Chronic Care Management No change(03/23 1:47 PM SOLID WASTE MANAGER) Ingrid Mcdaniels, RN Note: Problem: Chronic [...] 3 added in this encounter Care Teams Ticket Machine Operator Relationship Specialty Start Date End Date Kraig Ching MD [address] [facility] [address] [place] [address] PCP - General 07/10/16 Gautam Cope MD [address] [facility] [address] [place] [address] Medical Oncologist/Supervisor Solder Making Medical Oncology 08/18/18 Tramaine Roe MD [id number] [place] [address] Referring Physician Urology 08/18/18 Sukhwinder Uribe MD [address] [address] Consulting Physician Urology 08/18/18 Shay Guillermo MD [id number] [place] [address] Referring Physician Urology 08/18/18 Marsha Landis RN Registered Nurse 11/17/18 documented as of this encounter
--- OUTSIDE RECORDS SUMMARY | 2024-03-31 11:27 | XMS_ITS | Encounter Summary ---
Author Organization [facility] Address [address] [facility] [address] [place] [address] Care Team Providers Care Carpenters Helper Name Role Phone Kraig Ching MD Primary Care Provider [phone] Gautam Cope MD Unavailable Tramaine Roe MD Unavailable [phone] Sukhwinder Uribe MD Unavailable [phone] Shay Guillermo MD Unavailable [phone] Marsha Landis RN Unavailable Unavailab le Reason for Visit * Reason Onset Date Comments Covid-19 Home Monitoring 07/02/2022 Encounter Details Date Type Department Care Team (Late st Contact Info) Description 07/02/2022 Telephone [facility] Accountable Care Organization [address] [place] [address] Priyanka Lynch [address] [place] [address] Covid-19 Home Monitoring Social History Tobacco Use [...] on file 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 Minimize further functional decline 2. Maximize quality of life 3. Control pain Strategies: - Activity/exercise program recommendation - Conservative stepwise pain medicine strategy with multi-disciplinary approach - Recommend healthy lifestyle strategies and compensatory methods as needed documented as of this encounter Visit Diagnoses Not on filedocumented in this encounter Care Teams Carpenters Helper Relationship Specialty Start Date End Date Kraig Ching MD [address] [facility] [address] [place] [address] PCP - General 07/10/16 Gautam Cope MD [address] [facility] [address] [place] [address] Medical Oncologist/Drama Professor Medical Oncology 08/18/18 Tramaine Roe MD [address] [facility] [address] [place] [address] Referring Physician Urology 08/18/18 Sukhwinder Uribe MD [address] [facility] [address] [place] [address] Consulting Physician Urology 08/18/18 Shay Guillermo MD [address] [facility] [address] [place] [address] Referring Physician Urology 08/18/18 Marsha Landis, RN Registered Nurse 11/17/18 documented as of this encounter
--- OUTSIDE RECORDS SUMMARY | 2024-03-31 11:27 | XMS_ITS | Encounter Summary ---
Author Organization [facility] Address [address] [place] [address] Care Team Providers Care Logistics Management Specialist Name Role Phone Kraig Ching MD Primary Care Provider [phone] Gautam Cope MD Unavailable Tramaine Roe MD Unavailable [phone] Sukhwinder Uribe MD Unavailable [phone] Shay Guillermo MD Unavailable [phone] Marsha Landis RN Unavailable Unavailab le Encounter Details Date Type Department Care Team (Latest Contact Info) Description 08/25/2022 8:45 AM CDT - 08/25/2022 11:59 PM CDT Hospital Encounter [facility] [address] [place] [address] Prostate cancer (HCC) Discharge Disposition: Discharge to [...] file 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 Testing performed by: [facility], [address] [place] [phone] Blood 08/25/2022 9:51 AM CDT 08/25/2022 9:55 AM CDT us Gautam Cope MD LAB BLOOD ORDERABLES Final Resul t [facility] [place] [address] * (ABNORMAL) Differential, auto (08/25/2022 9:51 AM CDT) Neutrophil abs 10.5(H) 1.8 - 6.6 K/cumm [facility] Comment:Testing performed by : [facility], [address] [place] [phone] Lymphocyte abs 1.0(L) 1.2 - 3.3 K/cumm [facility] Comment:Testing performed by : [facility], [address] [place] [phone] Monocyte abs 0.9 0.2 - 1.2 K/cumm [facility] Comment:Testing performed by : [facility], [address] [place] [phone] Eosinophil abs 0.1 0.0 - 0.5 K/cumm [facility] Comment:Testing performed by : [facility], [address] [place] [phone] Basophil abs 0.1 0.0 - 0.2 K/cumm [facility] Comment:Testing performed by : [facility], [address] [place] [phone] Neutrophil pct 83.5 % [facility] Comment: Interpretive Data Percent cell count reference ranges are not reported, since discordance with absolute values may lead to misinterpretation of CBC data. Current Interpretive Data was last revised on 2017. Testing performed by: [facility], [address] [place] [phone] Lymphocyte pct 7.9 % [facility] Comment: Interpretive Data Percent cell count reference ranges are not reported, since discordance with absolute values may lead to misinterpretation of CBC data. Current Interpretive Data was last revised on 2017. Testing performed by: [facility], [address] [place] [phone] Monocyte pct 7.0 % [facility] Comment:Testing performed by : [facility], [address] [place] [phone] Eosinophil pct 1.1 % [facility] Comment:Testing performed by : [facility], [address] [place] [phone] Basophil pct 0.5 % [facility] Comment:Testing performed by : [facility], [address] [place] [phone] Blood 08/25/2022 9:51 AM CDT 08/25/2022 9:55 AM CDT Gautam Cope MD LAB BLOOD ORDERABLES Final Resul t Performing Organization Address City/[facility]/ZIP Co de Phone Number [facility] [place] [address] * Lactate dehydrogenase (LD) (08/25/2022 9:51 AM CDT) Lactate dehydrogenase (LDH) 174 100 - 250 Units/L [facility] Comment:Testing performed by : [facility], [address] [place] [phone] Blood 08/25/2022 9:51 AM CDT 08/25/2022 9:55 AM CDT us Gautam Cope MD LAB BLOOD ORDERABLES Final Resul t Performing Organization Address City/[facility]/ZIP Co de Phone Number [facility] [place] [address] * (ABNORMAL) CBC with auto differential (08/25/2022 9:51 AM CDT) WBC 12.6(H) 3.8 - 9.8 K/cumm [facility] Comment:Testing performed by : [facility], [address] [place], [place] [phone] Hgb 12.6(L) 13.8 - 17.2 g/dL [facility] Comment:Testing performed by : [facility], [address] [place], [place] [phone] Hct 38.8(L) 40.7 - 50.3 % [facility] Comment:Testing performed by : [facility], [address] [place] [address] Plt 338 140 - 440 K/cumm [facility] Comment:Testing performed by : [place] [id number] MPV 7.6 6.8 - 10.4 fL [facility] Comment:Testing performed by : [place] [id number] RBC 4.36(L) 4.50 - 5.70 M/cumm [facility] Comment:Testing performed by : [place] [id number] MCV 89.0 80.0 - 97.6 fL [facility] Comment:Testing performed by : [place] [id number] MCH 28.8 26.7 - 33.7 pg [facility] Comment:Testing performed by : [place] [id number] MCHC 32.4(L) 32.7 - 35.5 g/dL [facility] Comment:Testing performed by : [place] [id number] RDW CV 14.8(H) 11.8 - 14.6 % [facility] Comment:Testing performed by : [place] [id number] NRBC abs 0.01 0.00 - 0.01 K/cumm [facility] Comment:Testing performed by : [facility], [address] [place] [phone] Blood 08/25/2022 9:51 AM CDT 08/25/2022 9:55 AM CDT us Gautam Cope MD LAB BLOOD ORDERABLES Final Resul t [facility] [place] [address] * (ABNORMAL) Comprehensive metabolic panel (08/25/2022 9:51 AM CDT) Sodium 142 135 - 145 mmol/L [facility] Comment:Testing performed by : [facility], [address] [place] [phone] Potassium, pl 4.8 3.3 - 4.9 mmol/L [facility] Comment:Testing performed by : [facility], [address] [place] [phone] Chloride 103 97 - 110 mmol/L [facility] Comment:Testing performed by : [address] [phone] CO2 30 22 - 32 mmol/L [facility] Comment:Testing performed by : [facility], [address] [place] [phone] Anion gap 9 2 - 15 mmol/L [facility] Comment:Testing performed by : [facility], [address] [place] [phone] BUN 29(H) 8 - 25 mg/dL [facility] Comment:Testing performed by : [facility], [address] [place] [phone] Creatinine 1.92(H) 0.80 - 1.30 mg/dL [facility] Comment:Testing performed by : [facility], [address] [place] [phone] Glucose 166 70 - 199 mg/dL [facility] [...] revised 2022. Testing performed by: [facility], [address] [place] [phone] Calcium 9.6 8.5 - 10.3 mg/dL [facility] Comment:Testing performed by : [address] [address] Bilirubin, total 0.5 0.1 - 1.2 mg/dL [facility] Comment:Testing performed by : [address] [phone] Protein, pl 6.9 6.5 - 8.5 g/dL [facility] Comment:Testing performed by : [facility], [address] [place] [phone] Albumin 4.2 3.5 - 5.0 g/dL [facility] Comment:Testing performed by : [address] [phone] Alk phos 123 40 - 130 Units/L [facility] Comment:Testing performed by : [address] [phone] ALT 11 7 - 55 Units/L [facility] Comment:Testing performed by : [address] [address] AST 12 10 - 50 Units/L [facility] Comment:Testing performed by : [address] [phone] Blood 08/25/2022 9:51 AM CDT 08/25/2022 9:55 AM CDT us Gautam Cope MD LAB BLOOD ORDERABLES Final Resul t [facility] [place] [address] * PSA diagnostic (08/25/2022 9:51 AM CDT) [...] Resul t [facility] [place] [address] documented in this encounter Visit Diagnoses Diagnosis Prostate cancer (HCC) Malignant neoplasm of prostate documented in this encounter Care Teams Logistics Management Specialist Relationship Specialty Start Date End Date Kraig Ching MD [address] [facility] [address] [place] [address] PCP - General 07/10/16 Gautam Cope MD [address] [facility] [address] [place] [address] Medical Oncologist/Flooring Mechanic Medical Oncology 08/18/18 Tramaine Roe MD [address] [facility] [address] [place] [address] Referring Physician Urology 08/18/18 Sukhwinder Uribe MD [address] [facility] [address] [place] [address] Consulting Physician Urology 08/18/18 Shay Guillermo MD [address] [facility] [address] [place] [address] Referring Physician Urology 08/18/18 Marsha Landis, RN Registered Nurse 11/17/18 documented as of this encounter
--- OUTSIDE RECORDS SUMMARY | 2024-03-31 11:27 | XMS_ITS | Encounter Summary ---
Author Organization [facility] Address [address] [facility] [address] [place] [address] Care Team Providers Care Circus Roustabout Name Role Phone Kraig Ching MD Primary Care Provider [phone] Gautam Cope MD Unavailable Tramaine Roe MD Unavailable [phone] Sukhwinder Uribe MD Unavailable [phone] Shay Guillermo MD Unavailable [phone] Marsha Landis RN Unavailable Unavailab le Reason for Visit * Reason Onset Date Comments Covid-19 Home Monitoring 06/26/2022 Encounter Details Date Type Department Care Team (Late st Contact Info) Description 06/26/2022 Telephone [facility] Accountable Care Organization [address] [place] [address] Priyanka Lynch [address] [place] [address] Covid-19 Home Monitoring Social History Tobacco Use [...] on file 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 [facility] Chronic Pain Care Plan Chronic Care Management No change(03/23 1:47 PM SEISMOGRAPH COMPUTER) No Ingrid Oden RN Note: Problem: Chronic Pain Goals: 1. Minimize further functional decline 2. Maximize quality of life 3. Control pain Strategies: - Activity/exercise program recommendation - Conservative stepwise pain medicine strategy with multi-disciplinary approach - Recommend healthy lifestyle strategies and compensatory methods as needed documented as of this encounter Visit Diagnoses Not on filedocumented in this encounter Care Teams Circus Roustabout Relationship Specialty Start Date End Date Kraig Ching MD [address] [facility] [address] [place] [address] PCP - General 07/10/16 Gautam Cope MD [address] [facility] [address] [place] [address] Medical Oncologist/Direct Marketing Representative Medical Oncology 08/18/18 Tramaine Roe MD [address] [facility] [address] [place] [address] Referring Physician Urology 08/18/18 Sukhwinder Uribe MD [address] [facility] [address] [place] [address] Consulting Physician Urology 08/18/18 Shay Guillermo MD [address] [facility] [address] [place] [address] Referring Physician Urology 08/18/18 Marsha Landis, RN Registered Nurse 11/17/18 documented as of this encounter
--- OUTSIDE RECORDS SUMMARY | 2024-03-31 11:27 | XMS_ITS | Encounter Summary ---
Author Organization [facility] Address [address] [place] [address] Phone Care Team Providers Care Leasing Machine Tender Name Role Phone Kraig Ching MD Primary Care Provider [phone] Gautam Cope MD Unavailable Tramaine Roe MD Unavailable Sukhwinder Uribe MD Unavailable Shay Guillermo MD Unavailable [phone] Marsha Landis RN Unavailable Unavailab le Encounter Details Date Type Department Care Team (Late st Contact Info) Description 12/18/2022 Telephone [facility] Ophthalmology [address] [facility] [address] [place] [address] Janice Goldman Social History Tobacco Use Types [...] on file 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 Minimize further functional decline 2. Maximize quality of life 3. Control pain Strategies: - Activity/exercise program recommendation - Conservative stepwise pain medicine strategy with multi-disciplinary approach - Recommend healthy lifestyle strategies and compensatory methods as needed documented as of this encounter Visit Diagnoses Not on filedocumented in this encounter Care Teams Leasing Machine Tender Relationship Specialty Start Date End Date Kraig Ching MD [address] [facility] [address] [place] [address] PCP - General 07/10/16 Gautam Cope MD [address] [facility] [facility] [address] [address] [place] [address] Medical Oncologist/Vice Investigator Medical Oncology 08/18/18 Tramaine Roe MD [address] [facility] [address] [place] [address] Referring Physician Urology 08/18/18 Sukhwinder Uribe MD [address] [facility] [address] [place] [address] Consulting Physician Urology 08/18/18 Shay Guillermo MD [address] [facility] [address] [place] [address] Referring Physician Urology 08/18/18 Marsha Landis, RN Registered Nurse 11/17/18 documented as of this encounter
--- OUTSIDE RECORDS SUMMARY | 2024-03-31 11:27 | XMS_ITS | Encounter Summary ---
Author Organization [facility] Address [address] [facility] [address] [place] [address] Care Team Providers Care Electrical Cad Designer Name Role Phone Kraig Ching MD Primary Care Provider Gautam Cope MD Unavailable Tramaine Roe MD Unavailable [phone] Sukhwinder Uribe MD Unavailable [phone] Shay Guillermo MD Unavailable [phone] Marsha Landis RN Unavailable Unavailab le Reason for Visit * Reason Onset Date Comments Covid-19 Home Monitoring 06/29/2022 Re-enro antonio Encounter Details Date Type Department Care Team (Late st Contact Info) Description 06/29/2022 Telephone [facility] Accountable Care Organization [address] [place] [address] Priyanka Lynch, [address] [facility] [address] [place] [address] Covid-19 Home Monitoring (Re-enrollment ) Social History [...] on file 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 The patient was contacted via phone for enrollment in the program. The patient has declined to participate in the automated MyChart Industrial Renderer Program, but has verbally agreed to the Phone Only Home Monitoring Program, which includes being contacted for a daily phone assessment by a [facility]/ staff member. The patient was informed that [...] Chronic Care Management No change(03/23 1:47 PM ADAPTED PHYSICAL EDUCATION SPECIALIST) No Ingrid Oden, SHEA Note: Problem: Chronic Pain Goals: 1. Minimize further functional decline 2. Maximize quality of life 3. Control pain Strategies: - Activity/exercise program recommendation - Conservative stepwise pain medicine strategy with multi-disciplinary approach - Recommend healthy lifestyle strategies and compensatory methods as needed documented as of this encounter Visit Diagnoses Not on filedocumented in this encounter Care Teams Electrical Cad Designer Relationship Specialty Start Date End Date Kraig Ching MD [address] [facility] [address] [place] [address] PCP - General 07/10/16 Gautam Cope MD [address] [facility] [address] [place] [address] Medical Oncologist/General Medical Practitioner Medical Oncology 08/18/18 Tramaine Roe MD [address] [facility] [address] [place] [address] Referring Physician Urology 08/18/18 Sukhwinder Uribe MD [address] [facility] [address] [place] [address] Consulting Physician Urology 08/18/18 Shay Guillermo MD [address] [facility] [address] [place] [address] Referring Physician Urology 08/18/18 Marsha Landis, RN Registered Nurse 11/17/18 documented as of this encounter
--- OUTSIDE RECORDS SUMMARY | 2024-03-31 11:27 | XMS_ITS | Encounter Summary ---
Author Organization [facility] Address [address] [place] [address] Phone Care Team Providers Care Claim Clinician Name Role Phone Kraig Ching MD Primary Care Provider [phone] Gautam Cope MD Unavailable Tramaine Roe MD Unavailable [phone] Sukhwinder Uribe MD Unavailable [phone] Shay Guillermo MD Unavailable [phone] Marsha Landis RN Unavailable Unavailab le Encounter Details Date Type Department Care Team (Late st Contact Info) Description 11/12/2022 Telephone [facility] Ophthalmology [address] [facility] [address] [place] [address] Janice Goldman Social History Tobacco Use Types [...] on file 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 Minimize further functional decline 2. Maximize quality of life 3. Control pain Strategies: - Activity/exercise program recommendation - Conservative stepwise pain medicine strategy with multi-disciplinary approach - Recommend healthy lifestyle strategies and compensatory methods as needed documented as of this encounter Visit Diagnoses Not on filedocumented in this encounter Care Teams Claim Clinician Relationship Specialty Start Date End Date Kraig Ching MD [address] [facility] [address] [place] [address] PCP - General 07/10/16 Gautam Cope MD [address] [facility] [address] [place] [address] Medical Oncologist/Public Health Social Worker Medical Oncology 08/18/18 Tramaine Roe MD [address] [facility] [address] [place] [address] Referring Physician Urology 08/18/18 Sukhwinder Uribe MD [address] [facility] [address] [place] [address] Consulting Physician Urology 08/18/18 Shay Guillermo MD [address] [facility] [address] [place] [address] Referring Physician Urology 08/18/18 Marsha Landis, RN Registered Nurse 11/17/18 documented as of this encounter
--- OUTSIDE RECORDS SUMMARY | 2024-03-31 11:27 | XMS_ITS | Encounter Summary ---
Author Organization [facility] Address [address] [place] [address] Phone Care Team Providers Care Procurement Internship Name Role Phone Kraig Ching MD Primary Care Provider [phone] Gautam Cope MD Unavailable Tramaine Roe MD Unavailable [phone] Sukhwinder Uribe MD Unavailable [phone] Shay Guillermo MD Unavailable [phone] Marsha Landis RN Unavailable Unavailab le Encounter Details Date Type Department Care Team (Late st Contact Info) Description 11/10/2022 Telephone [facility] Ophthalmology [address] [facility] [address] [place] [address] Higinio Connolly MD [address] [facility] [address] [place], [place] [id number] Social History Tobacco Use Types Packs/Day Years [...] on file 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 She called him to make surehe is [...] diabetes and kidney status, etc. [facility] Chronic Pain Care Plan Chronic Care Management No change(03/23 1:47 PM SCALLOPER) No Ingrid Oden, HSEA Note: Problem: Chronic Pain Goals: 1. Minimize further functional decline 2. Maximize quality of life 3. Control pain Strategies: - Activity/exercise program recommendation - Conservative stepwise pain medicine strategy with multi-disciplinary approach - Recommend healthy lifestyle strategies and compensatory methods as needed documented as of this encounter Visit Diagnoses Not on filedocumented in this encounter Care Teams Procurement Internship Relationship Specialty [place] [address] [place] [address] [address] [place] [address] PCP - General 07/10/16 [place] [address] [place] [address] [address] [place] [address] Medical Oncologist/Friction Welding Machine Operator Medical Oncology 08/18/18 [place] [address] [place] [address] [address] [place] [address] Referring Physician Urology 08/18/18 Sukhwinder Uribe MD [address] [facility] [address] [place] [address] Consulting Physician Urology 08/18/18 Shay Guillermo MD [address] [facility] [address] [place] [address] Referring Physician Urology 08/18/18 Marsha Landis RN Registered Nurse 11/17/18 documented as of this encounter
--- OUTSIDE RECORDS SUMMARY | 2024-03-31 11:27 | XMS_ITS | Encounter Summary ---
Author Organization [facility] Address [address] [facility] [address] [place] [address] Care Team Providers Care Social Work Faculty Member Name Role Phone Kraig Ching MD Primary Care Provider [phone] Gautam Cope MD Unavailable Tramaine Roe MD Unavailable Sukhwinder Uribe MD Unavailable [phone] Shay Guillermo MD Unavailable [phone] Marsha Landis RN Unavailable Unavailab le Reason for Visit * Reason Onset Date Comments Covid-19 Home Monitoring 06/25/2022 Encounter Details Date Type Department Care Team (Late st Contact Info) Description 06/25/2022 Telephone [facility] Accountable Care Organization [address] [place] [address] Priyanka Lynch [address] [place] [address] Covid-19 Home Monitoring Social History Tobacco Use [...] on file 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 COVID-19 Symptom questionnaire was not completed today, because the patient could not be reached. Next Program Call Due: 06/[address] [facility] day 1 * Telephone Encounter [...] monitor diabetes and kidney status, etc. [facility] Chronic Pain Care Plan Chronic Care Management No change(03/23 1:47 PM BENDER HAND) No Ingrid Oden, SHEA Note: Problem: Chronic Pain Goals: 1. Minimize further functional decline 2. Maximize quality of life 3. Control pain Strategies: - Activity/exercise program recommendation - Conservative stepwise pain medicine strategy with multi-disciplinary approach - Recommend healthy lifestyle strategies and compensatory methods as needed documented as of this encounter Visit Diagnoses Not on filedocumented in this encounter Care Teams Social Work Faculty Member Relationship Specialty Start Date End Date Kraig Ching MD [address] [facility] [place] [facility] [address] [place] [address] PCP - General 07/10/16 Gautam Cope MD [address] [facility] [address] [place] [address] Medical Oncologist/Scallop Dredger Medical Oncology 08/18/18 Tarmaine Roe MD [address] [facility] [address] [place] [address] Referring Physician Urology 08/18/18 Sukhwinder Uribe MD [address] [facility] [address] [place] [address] Consulting Physician Urology 08/18/18 Shay Guillermo MD [address] [facility] [address] [place] [address] Referring Physician Urology 08/18/18 Marsha Landis, RN Registered Nurse 11/17/18 documented as of this encounter
--- OUTSIDE RECORDS SUMMARY | 2024-03-31 11:27 | XMS_ITS | Encounter Summary ---
Author Organization [facility] Address [address] [place] [address] Phone Care Team Providers Care Tearoom Host/Hostess Name Role Phone Kraig Ching MD Primary Care Provider [phone] Gautam Cope MD Unavailable Tramaine Roe MD Unavailable [phone] Sukhwinder Uribe MD Unavailable [phone] Shay Guillermo MD Unavailable [phone] Marsha Landis RN Unavailable Unavailab le Reason for Referral * Diagnostic Imaging (Routine) - Closed Specialty Diagnoses / Procedures Referred By Saleem t Referred To Contact Diagnoses Combined forms of age-related cataract of both eyes Procedures IOL Biometry - OU - Both Eyes Higinio Connolly MD [address] [facility] [address] [place] [address] Phone: tel: fax: [facility] (All Locations) Referral ID Status Reason Start Date Expiration Date Visits Re quested Visits Authorized [id number] Closed 12/04/2022 01/03/2024 1 1 Encounter Details Date Type Department Care Team (Late st Contact Info) Description 12/08/2022 2:30 PM CDT Office Visit [facility] [address] [facility] [address] [place] [address] Higinio Connolly MD [address] [facility] [address] [place] [address] Combined forms of age-related cataract of both [...] file 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 Gender Identity Not on file Sexual Orientation [...] Care Management No change(03/23 1:47 PM TEXTILE CHEMIST) No Ingrid Oden, RN Note: Problem: Chronic [...] eye PERRL Left eye PERRL Care Teams Tearoom Host/Hostess Relationship Specialty Start Date End Date Kraig Ching MD [address] [place] [address] PCP - General 07/10/16 Gautam Cope MD [address] [place] [address] Medical Oncologist/Trekking Guide Medical Oncology 08/18/18 Tramaine Roe MD [address] [place] [address] Referring Physician Urology 08/18/18 Sukhwinder Uribe MD [address] [place] [address] Consulting Physician Urology 08/18/18 Shay Guillermo MD [address] [place] [address] Referring Physician Urology 08/18/18 Marsha Landis, RN Registered Nurse 11/17/18 documented as of this encounter
--- OUTSIDE RECORDS SUMMARY | 2024-03-31 11:27 | XMS_ITS | Encounter Summary ---
Author Organization [facility] Address [address] [place] [address] Phone Care Team Providers Care Manager Business Information Name Role Phone Kraig Ching MD Primary Care Provider [phone] Gautam Cope MD Unavailable Tramaine Roe MD Unavailable [phone] Sukhwinder Uribe MD Unavailable [phone] Shay Guillermo MD Unavailable [phone] Marsha Landis RN Unavailable Unavailab le Reason for Visit * Reason Comments Injections Eligard * Episode Based Medications (Routine) - Authorized Specialty Diagnoses / Procedures Referred By Contac t Referred To Contact Oncology Diagnoses Prostate cancer (HCC) Procedures HI LEUPROLIDE ACETATE SUSPNSION Leuprolide Every 3 Months - Prostate Gautam Cope MD [address] [facility] [address] [place] [address] Phone: tel: fax: [facility] - Infusion [address] [facility] [address] [place] [address] Referral ID Status Reason Start Date Expiration Date V isits Requested Visits Authorized [id number] Authorized 09/06/2018 07/11/2024 1 50 Encounter Details Date Type Department Care Team (Late st Contact Info) Description 11/17/2022 11:45 AM CDT Infusion [facility] Oncology [facility] Advanced Medicine 7th [place] [address] Prostate cancer (HCC) (Primary Dx) Social History [...] on file 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 Gender Identity Not on file Sexual Orientation Not on file documented as of this encounter Nursing Notes * Graciela Ruano RN - 11/17/2022 11:45 AM CDT Oncology Nursing Note [facility] ON[facility] David Wei is a [...] Care Management No change(12/12 /2023 1:47 PM NET DEVELOPER PROGRAMMER) Ingrid Mcdaniels, SHEA Note: Problem: Chronic Pain [...] 11/2022 documented in this encounter Care Teams Manager Business Information Relationship Specialty Start Date End Date Kraig Ching MD [address] [place] [address] PCP - General 07/10/16 Gautam Cope MD [address] [place] [address] Medical Oncologist/Director Athletic Medical Oncology 08/18/18 Tramaine Roe MD [address] [place] [address] Referring Physician Urology 08/18/18 Sukhwinder Uribe MD [address] [place] [address] Consulting Physician Urology 08/18/18 Shay Guillermo MD [address] [facility] [address] [place] [address] Referring Physician Urology 08/18/18 Marsha Landis, RN Registered Nurse 11/17/18 documented as of this encounter
--- OUTSIDE RECORDS SUMMARY | 2024-03-31 11:27 | XMS_ITS | Encounter Summary ---
Author Organization [facility] Address [address] [place] [address] Phone Care Team Providers Care Medicine Man Name Role Phone Kraig Ching MD Primary Care Provider [phone] Gautam Cope MD Unavailable Tramaine Roe MD Unavailable [phone] Sukhwinder Uribe MD Unavailable [phone] Shay Guillermo MD Unavailable [phone] Marsha Landis RN Unavailable Unavailab Reason for Visit * Reason Onset Date Comments Scheduling Appointments 08/19/2022 Encounter Details Date Type Department Care Team (Late st Contact Info) Description 08/19/2022 Telephone [facility] Ophthalmology [facility] [place] [address] Nalini Son MD [address] 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 Minimize further functional decline 2. Maximize quality of life 3. Control pain Strategies: - Activity/exercise program recommendation - Conservative stepwise pain medicine strategy with multi-disciplinary approach - Recommend healthy lifestyle strategies and compensatory methods as needed documented as of this encounter Visit Diagnoses Not on filedocumented in this encounter Care Teams Medicine Man Relationship Specialty Start Date End Date Kraig Ching MD [address] [place] [address] PCP - General 07/10/16 Gautam Cope MD [address] [place] [address] Medical Oncologist/Corporate Development Officer Medical Oncology 08/18/18 Tramaine Roe MD [address] [facility] [facility] [facility] [address] [address] [place] [address] Referring Physician Urology 08/18/18 Sukhwinder Uribe MD [address] [facility] [address] [place] [address] Consulting Physician Urology 08/18/18 Shay Guillermo MD [address] [facility] [address] [place] [address] Referring Physician Urology 08/18/18 Marsha Landis, RN Registered Nurse 11/17/18 documented as of this encounter
--- OUTSIDE RECORDS SUMMARY | 2024-03-31 11:27 | XMS_ITS | Encounter Summary ---
Author Organization [facility] Address [address] [place] [address] Care Team Providers Care Surgical Device Sales Representative Name Role Phone Kraig Ching MD Primary Care Provider [phone] Gautam Cope MD Unavailable Tramaine Roe MD Unavailable [phone] Sukhwinder Uribe MD Unavailable [phone] Shay Guillermo MD Unavailable [phone] Marsha Landis RN Unavailable Unavailab le Reason for Visit * Reason Onset Date Comments Covid-19 Home Monitoring 06/30/2022 Encounter Details Date Type Department Care Team (Late st Contact Info) Description 06/30/2022 Telephone [facility] Accountable Care Organization [address] [place] [address] Priyanka Lynch [address] [place] [address] Covid-19 Home Monitoring Social History Tobacco Use [...] on file 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 Minimize further functional decline 2. Maximize quality of life 3. Control pain Strategies: - Activity/exercise program recommendation - Conservative stepwise pain medicine strategy with multi-disciplinary approach - Recommend healthy lifestyle strategies and compensatory methods as needed documented as of this encounter Visit Diagnoses Not on filedocumented in this encounter Care Teams Surgical Device Sales Representative Relationship Specialty Start Date End Date Kraig Ching MD [address] [facility] [address] [place] [address] PCP - General 07/10/16 Gautam Cope MD [id number] [place] [address] Medical Oncologist/Lens Coater Medical Oncology 08/18/18 Tramaine Roe MD [address] [address] Referring Physician Urology 08/18/18 Sukhwinder Uribe MD [address] [place] [address] Consulting Physician Urology 08/18/18 Shay Guillermo MD [id number] [place] [address] Referring Physician Urology 08/18/18 Marsha Lanids, RN Registered Nurse 11/17/18 documented as of this encounter
--- OUTSIDE RECORDS SUMMARY | 2024-03-31 11:27 | XMS_ITS | Encounter Summary ---
Author Organization [facility] Address [address] [place] [address] Phone Care Team Providers Care Radial Saw Operator Name Role Phone Kraig Ching MD Primary Care Provider [phone] Gautam Cope MD Unavailable Tramaine Roe MD Unavailable [phone] Sukhwinder Uribe MD Unavailable Shay Guillermo MD Unavailable [phone] Marsha Landis RN Unavailable Unavailab le Encounter Details Date Type Department Care Team (Late st Contact Info) Description 11/19/2022 Telephone [facility] Oncology [facility] Advanced Medicine 7th [place] [address] [place] [address] Ladi Bunch RN Social History [...] Legal Sex 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 [facility] Chronic Pain Care Plan Chronic Care Management No change(03/23 1:47 PM PRODUCT SAFETY MANAGER) No Ingrid Oden RN Note: Problem: [...] 4 added in this encounter Care Teams Radial Saw Operator Relationship Specialty Start Date End Date Kraig Ching MD [address] [facility] [address] [place] [address] PCP - General 07/10/16 Gautam Cope MD [address] [facility] [address] [place] [address] Medical Oncologist/Android Programmer Medical Oncology 08/18/18 Tramaine Roe MD [address] [facility] [address] [place] [address] Referring Physician Urology 08/18/18 Sukhwinder Uribe MD [address] [facility] [address] [place] [address] Consulting Physician Urology 08/18/18 Shay Guillermo MD [address] [facility] [address] [place] [address] Referring Physician Urology 08/18/18 Marsha Landis, RN Registered Nurse 11/17/18 documented as of this encounter
--- OUTSIDE RECORDS SUMMARY | 2024-03-31 11:27 | XMS_ITS | Encounter Summary ---
Author Organization [facility] Address [address] [place] [address] Phone Care Team Providers Care Motorcycle Riding Instructor Name Role Phone Kraig Ching MD Primary Care Provider [phone] Gautam Cope MD Unavailable Tramaine Roe MD Unavailable [phone] Sukhwinder Uribe MD Unavailable [phone] Shay Guillermo MD Unavailable [phone] Marsha Landis RN Unavailable Unavailab le Reason for Visit * Consultation (Routine) - Authorized Specialty Diagnoses / Procedures Referred By Saleem narvaez Referred To Contact Oncology Diagnoses Prostate cancer (HCC) Tramaine Roe MD [address] [facility] [address] [place] [address] Phone: tel: fax: Gautam Cope MD [address] [facility]ICAL ONCOLOGY, [address] [place] [address] Phone: tel: fax: Referral ID Status Reason Start Date Expiration Date Visits Requested Visits Authorized [id number] Authorized Specialty Services Required 08/15/2018 04/11/2024 99 99 Encounter Details Date Type Department Care Team (Late st Contact Info) Description 08/25/2022 10:00 AM CDT Lab [facility] Oncology [address] [facility] Advanced [facility] 7th [place] [address] [place] [address] Prostate cancer (HCC) Social History [...] on file 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 Gender Identity Not on file Sexual [...] Chronic Care Management No change(03/23 1:47 PM POKER MANAGER) No Ingrid Oden, SHEA Note: Problem: [...] 08/25/2022 documented in this encounter Care Teams Motorcycle Riding Instructor Relationship Specialty Start Date End Date Kraig Ching MD [address] [place] [address] PCP - General 07/10/16 Gautam Cope MD [address] [place] [address] Medical Oncologist/Roof Fitter Medical Oncology 08/18/18 Tramaine Roe MD [address] [place] [address] Referring Physician Urology 08/18/18 Sukhwinder Uribe MD [address] [facility] [address] [place] [address] Consulting Physician Urology 08/18/18 Shay Guillermo MD [address] [facility] [address] [place] [address] Referring Physician Urology 08/18/18 Marsha Landis, RN Registered Nurse 11/17/18 documented as of this encounter
--- OUTSIDE RECORDS SUMMARY | 2024-03-31 11:27 | XMS_ITS | Encounter Summary ---
Author Organization [facility] Address [address] [place] [address] Phone Care Team Providers Care Processes Chemical Design Engineer Name Role Phone Kraig Ching MD Primary Care Provider [phone] Gautam Cope MD Unavailable Tramaine Roe MD Unavailable [phone] Sukhwinder Uribe MD Unavailable [phone] Shay Guillermo MD Unavailable [phone] Marsha Landis RN Unavailable Unavailab le Reason for Visit * Reason Onset Date Comments Eye Drops and Aspirin > Med List 11/18/2022 Encounter Details Date Type Department Care Team (Late st Contact Info) Description 11/18/2022 Telephone [facility] Oncology [facility] Advanced Medicine 7th [place] [address] [place] [address] Ladi Bunch RN Eye Drops [...] file 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 [facility] Chronic Pain Care Plan Chronic Care Management No change(03/23 1:47 PM SOFTWARE DESIGN ENGINEER) No Ingrid Oden, SHEA Note: Problem: Chronic Pain Goals: 1. Minimize further functional decline 2. Maximize quality of life 3. Control pain Strategies: - Activity/exercise program recommendation - Conservative stepwise pain medicine strategy with multi-disciplinary approach - Recommend healthy lifestyle strategies and compensatory methods as needed documented as of this encounter Visit Diagnoses Not on filedocumented in this encounter Care Teams Processes Chemical Design Engineer Relationship Specialty Start Date End Date Kraig Ching MD [address] [facility] [address] [place] [address] PCP - General 07/10/16 Gautam Cope MD [address] [facility] [address] [place] [address] Medical Oncologist/Director Employee Communications Medical Oncology 08/18/18 Tramaine Roe MD [address] [facility] [address] [place] [address] Referring Physician Urology 08/18/18 Sukhwinder Uribe MD [address] [facility] [address] [place] [address] Consulting Physician Urology 08/18/18 Shay Guillermo MD [address] [facility] [address] [place] [address] Referring Physician Urology 08/18/18 Marsha Landis, RN Registered Nurse 11/17/18 documented as of this encounter
--- OUTSIDE RECORDS SUMMARY | 2024-03-31 11:27 | XMS_ITS | Encounter Summary ---
Author Organization [facility] Address [address] [facility] [address] [place] [address] Care Team Providers Care Wood Boatbuilder Apprentice Name Role Phone Kraig Ching MD Primary Care Provider [phone] Gautam Cope MD Unavailable Tramaine Roe MD Unavailable [phone] Sukhwinder Uribe MD Unavailable [phone] Shay Guillermo MD Unavailable [phone] Marsha Landis RN Unavailable Unavailab le Reason for Visit * Reason Onset Date Comments Covid-19 Home Monitoring 06/23/2022 Enrollm ent Encounter Details Date Type Department Care Team (Late st Contact Info) Description 06/23/2022 Telephone [facility] Accountable Care Organization [address] [place] [address] Priyanka Lynch, [address] [facility] [address] [place] [address] Covid-19 Home Monitoring (Enrollment ) Social History [...] file 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 The patient was contacted via phone for enrollment in the program. The patient has declined to participate in the automated MyChart Public Relations Professional Program, but has verbally agreed to the Phone Only Home Monitoring Program, which includes being contacted for a daily phone assessment by a [facility]/ staff member. The patient was informed [...] diabetes and kidney status, etc. [facility] Chronic Pain Care Plan Chronic Care Management No change(03/23 1:47 PM RESEARCH ANTHROPOLOGIST) No Ingrid Oden, SHEA Note: Problem: Chronic Pain Goals: 1. Minimize further functional decline 2. Maximize quality of life 3. Control pain Strategies: - Activity/exercise program recommendation - Conservative stepwise pain medicine strategy with multi-disciplinary approach - Recommend healthy lifestyle strategies and compensatory methods as needed documented as of this encounter Visit Diagnoses Not on filedocumented in this encounter Care Teams Wood Boatbuilder Apprentice Relationship Specialty Start Date End Date Kraig Ching MD [address] [facility] [address] [place] [address] PCP - General 07/10/16 Gautam Cope MD [address] [facility] [address] [place] [address] Medical Oncologist/Grocery Deliverer Medical Oncology 08/18/18 Tramaine Roe MD [address] [facility] [address] [place] [address] Referring Physician Urology 08/18/18 Sukhwinder Uribe MD [address] [facility] [address] [place] [address] Consulting Physician Urology 08/18/18 Shay Guillermo MD [address] [facility] [address] [place] [address] Referring Physician Urology 08/18/18 Marsha Landis, RN Registered Nurse 11/17/18 documented as of this encounter
--- OUTSIDE RECORDS SUMMARY | 2024-03-31 11:27 | XMS_ITS | Encounter Summary ---
Author Organization [facility] Healthcare Address [address] [place] [address] Care Team Providers Care Auto Adjudication Specialist Name Role Phone Kraig Ching MD Primary Care Provider [phone] Gautam Cope MD Unavailable Tramaine Roe MD Unavailable [phone] Sukhwinder Uribe MD Unavailable Shay Guillermo MD Unavailable [phone] Marsha Landis RN Unavailable Unavailab le Encounter Details Date Type Department Care Team (Latest Contact Info) Description 11/17/2022 11:30 AM CDT - 11/17/2022 11:59 PM CDT Hospital Encounter [facility] [address] [place] [address] Prostate cancer (HCC) Discharge Disposition: Discharge to [...] Legal Sex Male 4:46 PM DATA MANAGEMENT MANAGER Gender Identity Not on file Sexual [...] to monitor diabetes and kidney status, etc. [facility] Chronic Pain Care Plan Chronic Care Management No change(03/23 1:47 PM DATA MANAGEMENT MANAGER) No Ingrid Oden, RN Note: Problem: [...] 90 - 130 mL/min/1. 73 m2 [facility] Comment: Interpretive Data Reference Interval Normal [...] was last reviewed 2021. Testing performed by: [facility], [address] [place] [phone] Blood 11/17/2022 10:1 8 AM CDT 11/17/2022 10:26 AM CDT us Gautam Cope MD LAB BLOOD ORDERABLES Final Resul t [facility] Department [place] [address] * (ABNORMAL) Differential, auto (11/17/2022 10:18 AM CDT) Neutrophil abs 9.0(H) 1.8 - 6.6 K/cumm [facility] Comment:Testing performed by : [facility], [address] [place] [phone] Lymphocyte abs 1.2 1.2 - 3.3 K/cumm [facility] Comment:Testing performed by : [facility], [address] [place] [phone] Monocyte abs 0.8 0.2 - 1.2 K/cumm [facility] Comment:Testing performed by : [facility], [address] [place] [phone] Eosinophil abs 0.1 0.0 - 0.5 K/cumm [facility] Comment:Testing performed by : [facility], [address] [place] [phone] Basophil abs 0.1 0.0 - 0.2 K/cumm [facility] Comment:Testing performed by : [facility], [address] [place] [phone] Neutrophil pct 80.2 % [facility] Comment: Interpretive Data Percent cell count reference ranges are not reported, since discordance with absolute values may lead to misinterpretation of CBC data. Current Interpretive Data was last revised on 2017. Testing performed by: [facility], [address] [place] [phone] Lymphocyte pct 10.9 % [facility] Comment: Interpretive Data Percent cell count reference ranges are not reported, since discordance with absolute values may lead to misinterpretation of CBC data. Current Interpretive Data was last revised on 2017. Testing performed by: [facility], [address] [place] [phone] Monocyte pct 6.9 % [facility] Comment:Testing performed by : [facility], [address] [place] [phone] Eosinophil pct 1.2 % [facility] Comment:Testing performed by : [facility], [address] [place] [phone] Basophil pct 0.8 % [facility] Comment:Testing performed by : [facility], [address] [place] [phone] Blood 11/17/2022 10:1 8 AM CDT 11/17/2022 10:26 AM CDT Gautam Cope MD LAB BLOOD ORDERABLES Final Resul t Performing Organization Address [facility] [[email or web address]] de Phone Number [facility] [place] [address] * Lactate dehydrogenase (LD) (11/17/2022 10:18 AM CDT) Lactate dehydrogenase (LDH) 161 100 - 250 Units/L [facility] Comment:Testing performed by : [facility], [address] [place] [phone] Blood 11/17/2022 10:1 8 AM CDT 11/17/2022 10:26 AM CDT Gautam Cope MD LAB BLOOD ORDERABLES Final Resul t Performing Organization Address [facility] [[email or web address]] de Phone Number [facility] [place] [address] * (ABNORMAL) CBC with auto differential (11/17/2022 10:18 AM CDT) WBC 11.2(H) 3.8 - 9.8 K/cumm [facility] Comment:Testing performed by : [facility], [address] [place] [phone] Hgb 12.1(L) 13.8 - 17.2 g/dL [facility] Comment:Testing performed by : [facility], [address] [place] [phone] Hct 37.2(L) 40.7 - 50.3 % [facility] Comment:Testing performed by : [facility], [address] [place] [phone] Plt 343 140 - 440 K/cumm [facility] Comment:Testing performed by : [facility], [address] [place] [phone] MPV 7.6 6.8 - 10.4 fL [facility] Comment:Testing performed by : [facility], [address] [place], [place] [phone] RBC 4.17(L) 4.50 - 5.70 M/cumm [facility] Comment:Testing performed by : [facility], [address] [place], [place] [phone] MCV 89.2 80.0 - 97.6 fL [facility] Comment:Testing performed by : [facility], [address] [place], [place] [phone] MCH 28.9 26.7 - 33.7 pg [facility] Comment:Testing performed by : [facility], [address] [place] [phone] MCHC 32.5(L) 32.7 - 35.5 g/dL [facility] Comment:Testing performed by : [address] [phone] RDW CV 14.5 11.8 - 14.6 % [facility] Comment:Testing performed by : [facility], [address] [place] [phone] NRBC abs 0.00 0.00 - 0.01 K/cumm [facility] Comment:Testing performed by : [facility], [address] [place] [phone] Blood 11/17/2022 10:1 8 AM CDT 11/17/2022 10:26 AM CDT us Gautam Cope MD LAB BLOOD ORDERABLES Final Resul t [facility] Department [place] [address] * (ABNORMAL) Comprehensive metabolic panel (11/17/2022 10:18 AM CDT) Sodium 141 135 - 145 mmol/L [facility] Comment:Testing performed by : [facility], [address] [place] [phone] Potassium, pl 4.9 3.3 - 4.9 mmol/L [facility] Comment:Testing performed by : [facility], [address] [place] [phone] Chloride 106 97 - 110 mmol/L [facility] Comment:Testing performed by : [facility], [address] [place] [phone] CO2 27 22 - 32 mmol/L [facility] Comment:Testing performed by : [facility], [address] [place] [phone] Anion gap 8 2 - 15 mmol/L [facility] Comment:Testing performed by : [facility], [address] [place] [phone] BUN 42(H) 6 - 25 mg/dL [facility] Comment:Testing performed by : [facility], [address] [place] [phone] Creatinine 2.28(H) 0.80 - 1.30 mg/dL [facility] Comment:Testing performed by : [facility], [address] [place] [phone] Glucose 187 70 - 199 mg/dL [facility] Comment: Interpretive Data Fasting glucose >/= [...] was last revised 2022. Testing performed by: [facility], [address] [place] [phone] Calcium 9.2 8.5 - 10.3 mg/dL [facility] Comment:Testing performed by : [facility], [address] [place] [phone] Bilirubin, total 0.4 0.1 - 1.2 mg/dL [facility] Comment:Testing performed by : [facility], [address] [place] [phone] Protein, pl 6.6 6.5 - 8.5 g/dL [facility] Comment:Testing performed by : [facility], [address] [place] [phone] Albumin 4.0 3.5 - 5.0 g/dL [facility] Comment:Testing performed by : [facility], [address] [place] [phone] Alk phos 112 40 - 130 Units/L [facility] Comment:Testing performed by : [facility], [address] [place] [phone] ALT 12 7 - 55 Units/L [facility] Comment:Testing performed by : [facility], [address] [place] [phone] AST 13 10 - 50 Units/L [facility] Comment:Testing performed by : [facility], [address] [place] [phone] Blood 11/17/2022 10:1 8 AM CDT 11/17/2022 10:26 AM CDT us Gautam Cope MD LAB BLOOD ORDERABLES Final Resul t Performing Organization Address City/State/[facility] Co de Phone Number [facility] [place] [address] * PSA diagnostic (11/17/2022 10:18 AM CDT) PSA-Total <0.02 <=6.20 ng/mL [facility] Comment: Interpretive Data ?AGE ? SEX [...] Final Resul t Performing Organization Address City/State/[facility] Co al Phone Number [facility] [place] [address] documented in this encounter Visit Diagnoses Diagnosis Prostate cancer (HCC) Malignant neoplasm of prostate documented in this encounter Care Teams Auto Adjudication Specialist Relationship Specialty Start Date End Date Kraig Ching MD [address] [place] [address] PCP - General 07/10/16 Gautam Cope MD [address] [place] [address] Medical Oncologist/Senior Chemical Engineer Medical Oncology 08/18/18 Tramaine Roe MD [address] [place] [address] Referring Physician Urology 08/18/18 Sukhwinder Uribe MD [address] [place] [address] Consulting Physician Urology 08/18/18 Shay Guillermo MD [address] [facility] [address] [place] [address] Referring Physician Urology 08/18/18 Marsha Landis, RN Registered Nurse 11/17/18 documented as of this encounter
--- OUTSIDE RECORDS SUMMARY | 2024-03-31 11:27 | XMS_ITS | Encounter Summary ---
Author Organization [facility] Address [address] [place] [address] Care Team Providers Care Net Mvc Developer Name Role Phone Kraig Ching MD Primary Care Provider Gautam Cope MD Unavailable Tramaine Roe MD Unavailable [phone] Sukhwinder Uribe MD Unavailable [phone] Shay Guillermo MD Unavailable [phone] Marsha Landis RN Unavailable Unavailab le Reason for Referral * Consultation (Routine) - Closed Specialty Diagnoses / Procedures Referred By Contulices t Referred To Contact Ophthalmology Diagnoses Cataract of both eyes, unspecified cataract type Kraig Ching MD [address] [facility] [place] [address] Phone: tel: fax: Lindsay Son MD [address] [facility] [address] [place] [address] Phone: tel: fax: Referral ID Status Reason Start Date Expiration Date V isits Requested Visits Authorized [id number] Closed Specialty Services Required 08/18/2022 09/17/2023 6 6 Question Answer Please select the performing region: [facility] (All Locations) [[id number]] To provider: LINDSAY SON [[id number]] # of visits: 6 Encounter Details Date Type Department Care Team (Late st Contact Info) Description 08/18/2022 11:45 AM CDT Office Visit [facility] [address] [place] [address] Kraig Ching MD [address] [facility] [address] [place] [address] Hypertensive kidney disease with stage 3a chronic [...] on file 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 His [id number] 7.9. today. His morning glucose was 80.Diabetes [...] and would like to see someone at [facility]. Review of Systems Constitutional: Negative for [...] with long-term current use of insulin ([facility]) (E11.22, N18.31, Z79.4) Assessment & Plan: Continue [...] without complication, with long-term current use ofinsulin ([facility]/HCC) (HCC) (Resolved 10/02/2023) Continue current regimen. * Assessment & Plan Note - Kraig Ching MD - 08/18/2022 11:54 AM CDT Associated Problem(s): Hypertensive kidney disease with chronic kidney disease stage III ([facility]) Blood pressure is improved. Continue current regimen. Limit nephrotoxins. Monitor creatinine. AvoidNSAIDS. * Assessment & Plan Note - Kraig Ching MD - 08/18/2022 11:53 AM CDT Associated Problem(s): Hyperlipidemia associated with type 2 diabetes mellitus ([facility]) HgbA1C improved to 7.9. Continue Insulin.Reviewed proper [...] Chronic Care Management No change(03/23 1:47 PM FRONT CLERK) No Ingrid Oden, SHEA Note: Problem: [...] 10:40 AM CDT) Albumin Ur 227.3 mg/L [facility] Comment: Interpretive Data No reference range established. Current interpretive data was last revised 2018. Creatinine Ur 66.5 mg/dL [facility] Comment: Interpretive Data No reference range established. Current interpretive data was last revised 2018. Albumin Creatinine Ratio, Ur 342(H) 1 - 29 mg/g [facility] Urine 01/01/2023 10:4 0 AM CDT 01/01/2023 10:45 AM CDT Kraig Ching MD LAB URINE ORDERABLES Final Re sult [facility] Department [place] [address] * (ABNORMAL) POCT hemoglobin A1c (08/18/2022 11:50 [...] type documented in this encounter Care Teams Net Mvc Developer Relationship Specialty Start Date End Date Kraig Ching MD [address] [facility] [place] [address] PCP - General 07/10/16 Gautam Cope MD [id number] [place] [address] Medical Oncologist/Sales Consulting Director Medical Oncology 08/18/18 Tramaine Roe MD [address] [address] Referring Physician Urology 08/18/18 Sukhwinder Uribe MD [address] [address] Consulting Physician Urology 08/18/18 Shay Guillermo MD [address] [place] [address] Referring Physician Urology 08/18/18 Marsha Landis, RN Registered Nurse 11/17/18 documented as of this encounter
--- OUTSIDE RECORDS SUMMARY | 2024-03-31 11:28 | XMS_ITS | Encounter Summary ---
Author Organization [facility] Address [address] [place] [address] Phone Care Team Providers Care Acupressure Therapist Name Role Phone Kraig Ching MD Primary Care Provider [phone] Gautam Cope MD Unavailable Tramaine Roe MD Unavailable [phone] Sukhwinder Uribe MD Unavailable [phone] Shay Guillermo MD Unavailable [phone] Marsha Landis RN Unavailable Unavailab le Reason for Visit * Reason Comments Injections Eligard * Episode Based Medications (Routine) - Authorized Specialty Diagnoses / Procedures Referred By Contac t Referred To Contact Oncology Diagnoses Prostate cancer (HCC) Procedures HI LEUPROLIDE ACETATE SUSPNSION Leuprolide Every 3 Months - Prostate Gautam Cope MD [address] [facility] [address] [place] [address] Phone: tel: fax: [facility] [address] [facility] [address] [facility] [address] [place] [address] Referral ID Status Reason Start Date Expiration Date V isits Requested Visits Authorized [id number] Authorized 09/06/2018 07/11/2024 1 50 Encounter Details Date Type Department Care Team (Late st Contact Info) Description 06/02/2022 12:30 PM RNP Infusion [facility] Oncology [facility] 7th [place] [address] Prostate cancer (CMS/HCC) (HCC) (Primary Dx) Social [...] on file Legal Sex Male 4:46 PM RNP Gender Identity Not on file Sexual Orientation Not on file documented as of this encounter Nursing Notes * Patty Siegel, RN - 06/02/2022 12:30 PM CST Oncology Nursing Note [facility] ONCOLOGY [...] Chronic Care Management No change(03/23 1:47 PM RNP) No Ingrid Oden RN Note: Problem: Chronic [...] te cancer (HCC) Given 06/02/2022 12:03 PM RNP 22.5 mg Right Lower Abdomen documented in this encounter Orders Nursing Count Last Ordered Date First Orde red Date ONCBCN TREATMENT PARAMETERS 2 06/02/2022 Appointment Requests Count Last Ordered Date Fi rst Ordered Date ONCBCN INJECTION APPOINTMENT REQUEST 1 05/14 documented in this encounter Care Teams Acupressure Therapist Relationship Specialty Start Date End Date Kraig Ching MD [address] [place] [address] PCP - General 07/10/16 Gautam Cope MD [address] [facility] [address] [place] [address] Medical Oncologist/Wine Fermenter Medical Oncology 08/18/18 Tramaine Roe MD [address] [place] [address] Referring Physician Urology 08/18/18 Sukhwinder Uribe MD [address] [facility] [address] [place] [address] Consulting Physician Urology 08/18/18 Shay Guillermo MD [address] [facility] [address] [place] [address] Referring Physician Urology 08/18/18 Marsha Landis, RN Registered Nurse 11/17/18 documented as of this encounter
--- OUTSIDE RECORDS SUMMARY | 2024-03-31 11:28 | XMS_ITS | Encounter Summary ---
Author Organization [facility] Medical [facility] Address [address] [place] [address] Care Team Providers Care Box Blank Machine Feeder Name Role Phone Kraig Ching MD Primary Care Provider [phone] Gautam Cope MD Unavailable Tramaine Roe MD Unavailable [phone] Sukhwinder Uribe MD Unavailable [phone] Shay Guillermo MD Unavailable [phone] Marsha Landis RN Unavailable Unavailab le Encounter Details Date Type Department Care Team (Late st Contact Info) Description 02/12/2022 11:45 AM CDT Office Visit [facility] [address] [place] [address] Kraig Ching MD [address] [facility] [address] [place] [address] Primary hypertension (Primary Dx); Hypertensive [...] on file 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 [facility] Chronic Pain Care Plan Chronic Care Management No change(03/23 1:47 PM BLAST FURNACE OPERATOR) No Ingrid Oden, RN Note: Problem: [...] Sodium 143 135 - 145 mmol/L [facility] Potassium, pl 4.6 3.3 - 4.9 mmol/L [facility] Chloride 105 97 - 110 mmol/L [facility] CO2 32 22 - 32 mmol/L [facility] Anion gap 6 2 - 15 mmol/L [facility] BUN 32(H) 8 - 25 mg/dL [facility] Creatinine 1.93(H) 0.80 - 1.30 mg/dL [facility] Glucose 201(H) 70 - 199 mg/dL [facility] Comment: Interpretive Data Fasting glucose >/= [...] Calcium 8.9 8.5 - 10.3 mg/dL [facility] Blood 02/12/2022 12:0 1 PM CDT 02/12/2022 1:21 PM CDT us Kraig Ching MD LAB BLOOD ORDERABLES Final Re sult [facility] [place] [address] * (ABNORMAL) Lipid panel (02/12/2022 12:01 PM CDT) Cholesterol 200(H) 30 - 199 mg/dL [facility] Comment: Interpretive Data Ages < or [...] revised on 2017. Triglycerides 268(H) <=149 mg/dL [facility] Comment: Interpretive Data Ages < or = [...] revised on 2017. HDL 41 >=40 mg/dL [facility] Comment: Interpretive Data Ages < or = [...] on 2017. LDL, calculated 105 <=129 mg/dL [facility] Comment: Interpretive Data Ages < or = [...] on 2017. Non-HDL Cholesterol 159 mg/dL [facility] Comment: Interpretive Data Ages < or [...] last revised on 2017. Chol/HDL [facility] 5 [facility] Blood 02/12/2022 12:0 1 PM CDT 02/12/2022 1:21 PM CDT us Kraig Ching MD LAB BLOOD ORDERABLES Final [facility] [place] [address] * (ABNORMAL) Hemoglobin A1c (02/12/2022 12:01 PM CDT) Hgb A1C 8.4(H) 4.0 - 5.6 % [facility] Estimated Average Glucose 194 mg/dL [facility] Comment: The ADA recommends reporting an [...] LAB BLOOD ORDERABLES Final Re sult [facility] Department [place] [address] documented in this encounter Visit Diagnoses Diagnosis [...] 02/12/2022 documented in this encounter Care Teams Box Blank Machine Feeder Relationship Specialty Start Date End Date Kraig Ching MD [address] [facility] [address] [place] [address] PCP - General 07/10/16 Gautam Cope MD [id number] [place] [address] Medical Oncologist/Plant General Manager Medical Oncology 08/18/18 Tramaine Roe MD [address] [address] Referring Physician Urology 08/18/18 Sukhwinder Uribe MD [id number] [place] [address] Consulting Physician Urology 08/18/18 Shay Guillermo MD [id number] [place] [address] Referring Physician Urology 08/18/18 Marsha Landis, RN Registered Nurse 11/17/18 documented as of this encounter
--- OUTSIDE RECORDS SUMMARY | 2024-03-31 11:28 | XMS_ITS | Encounter Summary ---
Author Organization [facility] Healthcare Address [address] [place] [address] Care Team Providers Care Vice President Of Consulting Services Name Role Phone Kraig Ching MD Primary Care Provider [phone] Gautam Cope MD Unavailable Tramaine Roe MD Unavailable [phone] Sukhwinder Uribe MD Unavailable [phone] Shay Guillermo MD Unavailable [phone] Marsha Landis RN Unavailable Unavailab le Encounter Details Date Type Department Care Team (Latest Contact Info) Description 12/16/2021 8:21 AM CDT - 12/16/2021 11:59 PM CDT Hospital Encounter [facility] [address] [place] [address] Prostate cancer (CMS/HCC) (HCC) Discharge Disposition: Discharge [...] file 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 73 m2 [facility] Comment: Interpretive Data Reference Interval [...] was last reviewed 2021. Testing performed by: [facility], [address] [place] [phone] Blood 12/16/2021 7:40 AM CDT 12/16/2021 7:41 AM CDT us Gautam Cope MD LAB BLOOD ORDERABLES Final Resul t [facility] One [facility] [place] [address] * (ABNORMAL) Differential, auto (12/16/2021 7:40 AM CDT) Neutrophil abs 9.1(H) 1.8 - 6.6 K/cumm [facility] Comment:Testing performed by : [facility], [address] [place] [phone] Lymphocyte abs 1.8 1.2 - 3.3 K/cumm [facility] Comment:Testing performed by : [facility], [address] [place] [phone] Monocyte abs 1.0 0.2 - 1.2 K/cumm [facility] Comment:Testing performed by : [facility], [address] [place] [phone] Eosinophil abs 0.2 0.0 - 0.5 K/cumm [facility] Comment:Testing performed by : [facility], [address] [place] [phone] Basophil abs 0.1 0.0 - 0.2 K/cumm [facility] Comment:Testing performed by : [facility], [address] [place] [phone] Neutrophil pct 75.1 % [facility] Comment: Interpretive Data Percent cell count reference ranges are not reported, since discordance with absolute values may lead to misinterpretation of CBC data. Current Interpretive Data was last revised on 2017. Testing performed by: [facility], [address] [place] [phone] Lymphocyte pct 14.6 % [facility] Comment: Interpretive Data Percent cell count reference ranges are not reported, since discordance with absolute values may lead to misinterpretation of CBC data. Current Interpretive Data was last revised on 2017. Testing performed by: [facility], [address] [place] [phone] Monocyte pct 8.0 % [facility] Comment:Testing performed by : [facility], [address] [place] [phone] Eosinophil pct 1.5 % [facility] Comment:Testing performed by : [facility], [address] [place] [phone] Basophil pct 0.8 % [facility] Comment:Testing performed by : [facility], [address] [place] [phone] Blood 12/16/2021 7:40 AM CDT 12/16/2021 7:41 AM CDT us Gautam Cope MD LAB BLOOD ORDERABLES Final Resul t [facility] [place] [address] * Lactate dehydrogenase (LD) (12/16/2021 7:40 AM CDT) Lactate dehydrogenase (LDH) 168 100 - 250 Units/L [facility] Comment:Testing performed by : [facility], [address] [place] [phone] Blood 12/16/2021 7:40 AM CDT 12/16/2021 7:41 AM CDT us Gautam Cope MD LAB BLOOD ORDERABLES Final Resul t [facility] One [facility] Department [place] [address] * (ABNORMAL) CBC with auto differential (12/16/2021 7:40 AM CDT) WBC 12.1(H) 3.8 - 9.8 K/cumm [facility] Comment:Testing performed by : [facility], [address] [place] [phone] Hgb 12.5(L) 13.8 - 17.2 g/dL [facility] Comment:Testing performed by : [facility], [address] [place] [phone] Hct 37.6(L) 40.7 - 50.3 % [facility] Comment:Testing performed by : [address] [address] Plt 332 140 - 440 K/cumm [facility] Comment:Testing performed by : [facility], [address] [place] [phone] MPV 7.6 6.8 - 10.4 fL [facility] Comment:Testing performed by : [address] [address] RBC 4.27(L) 4.50 - 5.70 M/cumm [facility] Comment:Testing performed by : [address] [address] MCV 88.0 80.0 - 97.6 fL [facility] Comment:Testing performed by : [address] [address] MCH 29.3 26.7 - 33.7 pg [facility] Comment:Testing performed by : [address] [address] MCHC 33.3 32.7 - 35.5 g/dL [facility] Comment:Testing performed by : [address] [address] RDW CV 14.3 11.8 - 14.6 % [facility] Comment:Testing performed by : [facility], [address] [place] [phone] NRBC abs 0.01 0.00 - 0.01 K/cumm [facility] Comment:Testing performed by : [facility], [address] [place] [phone] Blood 12/16/2021 7:40 AM CDT 12/16/2021 7:41 AM CDT us Gautam Cope MD LAB BLOOD ORDERABLES Final Resul t [facility] Department [place] [address] * (ABNORMAL) Comprehensive metabolic panel (12/16/2021 7:40 AM CDT) Sodium 141 135 - 145 mmol/L [facility] Comment:Testing performed by : [facility], [address] [place] [phone] Potassium, pl 4.5 3.3 - 4.9 mmol/L [facility] Comment:Testing performed by : [facility], [address] [place] [phone] Chloride 104 97 - 110 mmol/L [facility] Comment:Testing performed by : [facility], [address] [place] [phone] CO2 30 22 - 32 mmol/L [facility] Comment:Testing performed by : [facility], [address] [place] [phone] Anion gap 7 2 - 15 mmol/L [facility] Comment:Testing performed by : [facility], [address] [place] [phone] BUN 42(H) 8 - 25 mg/dL [facility] Comment:Testing performed by : [facility], [address] [place] [phone] Creatinine 2.05(H) 0.80 - 1.30 mg/dL [facility] Comment:Testing performed by : [facility], [address] [place] [phone] Glucose 109 70 - 199 mg/dL [facility] [...] last revised 2017. Testing performed by: [address] [address] Calcium 9.3 8.5 - 10.3 mg/dL [facility] Comment:Testing performed by : [address] [address] Bilirubin, total 0.3 0.1 - 1.2 mg/dL [facility] Comment:Testing performed by : [facility], [address] [place] [phone] Protein, pl 6.8 6.5 - 8.5 g/dL [facility] Comment:Testing performed by : [address] [address] Albumin 4.3 3.5 - 5.0 g/dL [facility] Comment:Testing performed by : [address] [address] Alk phos 114 40 - 130 Units/L [facility] Comment:Testing performed by : [address] [address] ALT 9 7 - 55 Units/L [facility] Comment:Testing performed by : [address] [address] AST 12 10 - 50 Units/L [facility] Comment:Testing performed by : [address] [address] Blood 12/16/2021 7:40 AM CDT 12/16/2021 7:41 AM CDT us Gautam Cope MD LAB BLOOD ORDERABLES Final Resul t Performing Organization Address [facility] Co de Phone Number [facility] Department [place] [address] * PSA diagnostic (12/16/2021 7:40 AM CDT) [...] Organization Address [facility] Co de Phone Number [facility] Department [place] [address] documented in this encounter Visit Diagnoses Diagnosis Prostate cancer (HCC) Malignant neoplasm of prostate documented in this encounter Care Teams Vice President Of Consulting Services Relationship Specialty Start Date End Date Kraig Ching MD [address] [facility] [address] [place] [address] PCP - General 07/10/16 Gautam Cope MD [address] [facility] [address] [place] [address] Medical Oncologist/Demonstrator Knitting Medical Oncology 08/18/18 Tramaine Roe MD [address] [facility] [address] [place] [address] Referring Physician Urology 08/18/18 Sukhwinder Uribe MD [address] [facility] [address] [place] [address] Consulting Physician Urology 08/18/18 Shay Guillermo MD [address] [facility] [address] [place] [address] Referring Physician Urology 08/18/18 Marsha Landis, RN Registered Nurse 11/17/18 documented as of this encounter
--- OUTSIDE RECORDS SUMMARY | 2024-03-31 11:28 | XMS_ITS | Encounter Summary ---
Author Organization [facility] Address [address] [place] [address] Phone Care Team Providers Care Hiv/Aids Care Nurse Name Role Phone Kraig Ching MD Primary Care Provider [phone] Gautam Cope MD Unavailable Tramaine Roe MD Unavailable [phone] Sukhwinder Uribe MD Unavailable [phone] Shay Guillermo MD Unavailable [phone] Marsha Landis RN Unavailable Unavailab le Encounter Details Date Type Department Care Team (Late st Contact Info) Description 12/15/2021 Orders Only [facility] Oncology [address] [facility] 7th [place] [address] [place] [address] Muna Saleem RN Social History Tobacco Use [...] on file 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 Minimize further functional decline 2. Maximize quality of life 3. Control pain Strategies: - Activity/exercise program recommendation - Conservative stepwise pain medicine strategy with multi-disciplinary approach - Recommend healthy lifestyle strategies and compensatory methods as needed documented as of this encounter Visit Diagnoses Not on filedocumented in this encounter Care Teams Hiv/Aids Care Nurse Relationship Specialty Start Date End Date Kraig Ching MD [address] [place] [address] PCP - General 07/10/16 Gautam Cope MD [address] [place] [address] Medical Oncologist/Multiple Effect Evaporator Operator Medical Oncology 08/18/18 Tramaine Roe MD [address] [place] [address] Referring Physician Urology 08/18/18 Sukhwinder Uribe MD [address] [place] [address] Consulting Physician Urology 08/18/18 Shay Guillermo MD [address] [place] [address] Referring Physician Urology 08/18/18 Marsha Landis, RN Registered Nurse 11/17/18 documented as of this encounter
--- OUTSIDE RECORDS SUMMARY | 2024-03-31 11:28 | XMS_ITS | Encounter Summary ---
Author Organization [facility] Address [address] [place] [address] Phone Care Team Providers Care Gear Tooth Grinding Machine Operator Name Role Phone Kraig Ching MD Primary Care Provider [phone] Gautam Cope MD Unavailable Tramaine Roe MD Unavailable [phone] Sukhwinder Uribe MD Unavailable [phone] Shay Guillermo MD Unavailable [phone] Marsha Landis RN Unavailable Unavailab le Reason for Visit * Episode Based Medications (Routine) - Authorized Specialty Diagnoses / Procedures Referred By Saleem narvaez Referred To Contact Oncology Diagnoses Prostate cancer (HCC) Procedures ID LEUPROLIDE ACETATE SUSPNSION Leuprolide Every 3 Months - Prostate Gautam Cope MD [address] [facility] [address] [place] [address] Phone: tel: fax: [facility] - Infusion [address] [facility] [address] [place] [address] Referral ID Status Reason Start Date Expiration Date V isits Requested Visits Authorized [id number] Authorized 09/06/2018 07/11/2024 1 50 Encounter Details Date Type Department Care Team (Late st Contact Info) Description 12/16/2021 8:15 AM CDT Office Visit [facility] Oncology [address] [place] [address] 7th [place] [id number] Gautam Cope MD [address] [facility] [address] [place] [address] Prostate cancer (CMS/HCC) (HCC) Social History Tobacco [...] file 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 5. Hypertension, currently controlled by his energy sales consultant. 6. Ground-glass opacities in his lungs. We will plan to obtain a noncontrast chest CT in 6 months. We will see him again 12 weeks from now for further follow-up and additional Lupron administration. ELECTRONICALLY SIGNED - 12/16/2021 06:32 PM Gautam Cope M.D. drapery head former GLORIA/axel documented in this encounter Plan of [...] Care Management No change(03/23 1:47 PM MANAGER MSW) No Ingrid Oden, SHEA Note: Problem: Chronic [...] 022 documented in this encounter Care Teams Gear Tooth Grinding Machine Operator Relationship Specialty Start Date End Date Kraig Ching MD [address] [place] [address] PCP - General 07/10/16 Gautam Cope MD [address] [place] [address] Medical Oncologist/Retread Builder Medical Oncology 08/18/18 Tramaine Roe MD [address] [facility] [address] [place] [address] Referring Physician Urology 08/18/18 Sukhwinder Uribe MD [address] [facility] [address] [place] [address] Consulting Physician Urology 08/18/18 Shay Guillermo MD [address] [facility] [address] [place] [address] Referring Physician Urology 08/18/18 Marsha Landis RN Registered Nurse 11/17/18 documented as of this encounter
--- OUTSIDE RECORDS SUMMARY | 2024-03-31 11:28 | XMS_ITS | Encounter Summary ---
Author Organization [facility] Healthcare Address [address] [place] [address] Care Team Providers Care Malt Loader Name Role Phone Kraig Ching MD Primary Care Provider [phone] Gautam Cope MD Unavailable Tramaine Roe MD Unavailable [phone] Sukhwinder Uribe MD Unavailable [phone] Shay Guillermo MD Unavailable [phone] Marsha Landis RN Unavailable Unavailab le Encounter Details Date Type Department Care Team (Late st Contact Info) Description 02/12/2022 Orders Only [facility] Outpatient Lab [address] [facility] [address] [place], [place] [id number] Kraig Ching MD [address] [facility] [address] [place], [place] [id number] Stage 3b chronic kidney disease (HCC); Hyperlipidemia, [...] on file 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 73 m2 [facility] Comment: Interpretive Data Reference Interval [...] ORDERABLES Final Re sult Performing Organization Address [facility] de Phone Number [facility] Department [place] [address] * (ABNORMAL) Hemoglobin A1c (02/12/2022 12:01 PM CDT) Hgb A1C 8.4(H) 4.0 - 5.6 % [facility] Estimated Average Glucose 194 mg/dL [facility] Comment: The ADA recommends reporting [...] ORDERABLES Final Re sult Performing Organization Address [facility] de Phone Number [facility] Department [place] [address] * (ABNORMAL) Lipid panel (02/12/2022 12:01 PM CDT) [facility] Cholesterol 200(H) 30 - 199 mg/dL [facility] Comment: Interpretive Data Ages < [...] revised on 2017. Triglycerides 268(H) <=149 mg/dL [facility] Comment: Interpretive Data Ages < [...] revised on 2017. HDL 41 >=40 mg/dL [facility] Comment: Interpretive Data Ages < [...] on 2017. LDL, calculated 105 <=129 mg/dL [facility] Comment: Interpretive Data Ages < [...] revised on 2017. Non-HDL Cholesterol 159 mg/dL [facility] Comment: Interpretive Data Ages < [...] revised on 2017. Chol/HDL ratio 5 [facility] Blood 02/12/2022 12:0 1 PM CDT 02/12/2022 1:21 PM CDT Kraig Ching MD LAB BLOOD ORDERABLES Final Re sult [facility] Department [place] [address] * (ABNORMAL) Basic metabolic panel (02/12/2022 12:01 PM CDT) Pathologist [facility] Sodium 143 135 - 145 mmol/L [facility] Potassium, pl 4.6 3.3 - 4.9 mmol/L [facility] Chloride 105 97 - 110 mmol/L [facility] CO2 32 22 - 32 mmol/L [facility] Anion gap 6 2 - 15 mmol/L [facility] BUN 32(H) 8 - 25 mg/dL [facility] Creatinine 1.93(H) 0.80 - 1.30 mg/dL [facility] Glucose 201(H) 70 - 199 mg/dL [facility] Comment: Interpretive Data Fasting glucose [...] 2017. Calcium 8.9 8.5 - 10.3 mg/dL [facility] Blood 02/12/2022 12:0 1 PM CDT 02/12/2022 1:21 PM CDT Kraig Ching MD LAB BLOOD ORDERABLES Final Re sult [facility] Department [place] [address] documented in this encounter Visit Diagnoses Diagnosis Stage 3b chronic kidney disease (HCC) Hyperlipidemia, unspecified hyperlipidemia type Type 2 diabetes mellitus with stage 3a chronic kidney disease, with long-term current use of insulin (HCC) documented in this encounter Care Teams Malt Loader Relationship Specialty Start Date End Date Kraig Ching MD [address] [place] [address] PCP - General 07/10/16 Gautam Cope MD [address] [place] [address] Medical Oncologist/Rn Compliance Medical Oncology 08/18/18 Tramaine Roe MD [address] [place] [address] Referring Physician Urology 08/18/18 Sukhwinder Uribe MD [address] [place] [address] Consulting Physician Urology 08/18/18 Shay Guillermo MD [address] [place] [address] Referring Physician Urology 08/18/18 Marsha Landis, RN Registered Nurse 11/17/18 documented as of this encounter
--- OUTSIDE RECORDS SUMMARY | 2024-03-31 11:28 | XMS_ITS | Encounter Summary ---
Author Organization [facility] Address [address] [place] [address] Phone Care Team Providers Care Wire Drawing Setter Name Role Phone Kraig Ching MD Primary Care Provider [phone] Gautam Cope MD Unavailable Tramaine Roe MD Unavailable [phone] Sukhwinder Uribe MD Unavailable Shay Guillermo MD Unavailable [phone] Marsha Landis RN Unavailable Unavailab le Reason for Visit * Reason Comments Injections * Episode Based Medications (Routine) - Authorized Specialty Diagnoses / Procedures Referred By Contac t Referred To Contact Oncology Diagnoses Prostate cancer (HCC) Procedures [place] LEUPROLIDE ACETATE SUSPNSION Leuprolide Every 3 Months - Prostate Gautam Cope MD [address] [facility] [address] [place] [address] Phone: tel: fax: [facility] - Infusion [address] [facility] [address] [place] [address] Referral ID Status Reason Start Date Expiration Date V isits Requested Visits Authorized [id number] Authorized 09/06/2018 07/11/2024 1 50 Encounter Details Date Type Department Care Team (Late st Contact Info) Description 12/16/2021 9:30 AM CDT Infusion [facility] Oncology [address] [facility] Advanced Medicine 7th [place] [phone] Prostate cancer (CMS/HCC) (HCC) (Primary Dx) Social [...] on file 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 [...] Chronic Care Management No change(03/23 1:47 PM PRE SALES NETWORK ENGINEER) No Ingrid Oden, SHEA Note: Problem: [...] 09/2021 documented in this encounter Care Teams Wire Drawing Setter Relationship Specialty Start Date End Date Kraig Ching MD [address] [facility] [address] [place] [address] PCP - General 07/10/16 Gautam Cope MD [address] [place] [address] Medical Oncologist/Rental Management Trainee Medical Oncology 08/18/18 Tramaine Roe MD [address] [facility] [address] [place] [address] Referring Physician Urology 08/18/18 Sukhwinder Uribe MD [address] [facility] [address] [place] [address] Consulting Physician Urology 08/18/18 Shay Guillermo MD [address] [facility] [address] [place] [address] Referring Physician Urology 08/18/18 Marsha Landis, RN Registered Nurse 11/17/18 documented as of this encounter
--- OUTSIDE RECORDS SUMMARY | 2024-03-31 11:28 | XMS_ITS | Encounter Summary ---
Author Organization [facility] [employer] [facility] Address [address] [place] [address] Phone Care Team Providers Care Treasury Accountant Name Role Phone Kraig Ching MD Primary Care Provider [phone] Gautam Cope MD Unavailable Tramaine Roe MD Unavailable [phone] Sukhwinder Uribe MD Unavailable [phone] Shay Guillermo MD Unavailable [phone] Marsha Landis RN Unavailable Unavailab le Reason for Visit * Reason Comments Health Maintenance * Diagnostic Imaging (Routine) - Closed Specialty Diagnoses / Procedures Referred By Contac t Referred To Contact Diagnoses Prostate cancer (HCC) Procedures Dexa Axial Skeleton Bone Density 1 or 2 Site Gautam Cope MD [address] [facility] [address] [place] [address] Phone: tel: fax: [address] [address] Referral ID Status Reason Start Date Expiration Date Visits Re quested Visits Authorized [id number] Closed 03/10/2022 04/09/2023 1 1 Encounter Details Date Type Department Care Team (Latest Contact Info) Description 06/10/2022 2:30 PM [employer]AIL[employer] PHARM[employer]ICALS Clinical Support [facility] [address] [facility] 5th [place] [address] [place] [address] Prostate cancer (CMS/HCC) (HCC); Androgen [...] on file Legal Sex Male 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 [facility] Chronic Pain Care Plan Chronic Care Management No change(03/23 1:47 PM [employer]AILER PHARMACE[employer]ICALS) No Ingrid Oden RN Note: Problem: Chronic [...] Read Routine (OP Routine) 06/10/2022 2:42 PM [employer]AIL[employer] PHARMACE[employer]ICALS Prostate cancer (CMS/HCC) (HCC) documented in this encounter Results * Dexa Axial Skeleton Bone Density 1 or 2 Site (06/10/2022 2:42 PM [employer]) Anatomical Region Laterality Modality Body N/A Radiographic Roberta ging Narrative 06/10/2022 3:17 PM [employer] Patient Name: David Wei Date of : 1940 Date of scan: 06/10/2022 Bone mineral density was performed on a Zuvvu Discovery Densitometer. ?? Based on machine cross-calibration [...] by the International Society of Clinical Densitometry. [id number] Gautam Cope MD IMG DXA PROCEDURES Final Result documented in this encounter Visit Diagnoses Diagnosis Prostate cancer (HCC) Malignant neoplasm of prostate Androgen deprivation therapy Current chronic use of systemic steroids documented in this encounter Care Teams Treasury Accountant Relationship Specialty Start Date End Date Kraig Ching MD [address] [place] [address] PCP - General 07/10/16 Gautam Cope MD [address] [place] [address] Medical Oncologist/Welder Tech Medical Oncology 08/18/18 Tramaine Roe MD [address] [place] [address] Referring Physician Urology 08/18/18 Sukhwinder Uribe MD [address] [place] [address] Consulting Physician Urology 08/18/18 Shay Guillermo MD [address] [place] [address] Referring Physician Urology 08/18/18 Marsha Landis, RN Registered Nurse 11/17/18 documented as of this encounter
--- OUTSIDE RECORDS SUMMARY | 2024-03-31 11:28 | XMS_ITS | Encounter Summary ---
Author Organization [facility] Address [address] [facility] [address] [place] [address] Care Team Providers Care Scientific Informatics Leader Name Role Phone Kraig Ching MD Primary Care Provider [phone] Gautam Cope MD Unavailable Tramaine Roe MD Unavailable [phone] Sukhwinder Uribe MD Unavailable [phone] Shay Guillermo MD Unavailable [phone] Marsha Landis RN Unavailable Unavailab le Reason for Visit * Reason Onset Date Comments Prior Auth 03/26/2022 NovoLog Encounter Details Date Type Department Care Team (Late st Contact Info) Description 03/26/2022 Telephone [facility] [address] [facility] [address] [place] [address] Kraig Ching MD [address] [facility] [address] [place], [place] [id number] Prior Auth (NovoLog) Social History Tobacco Use [...] on file 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 PA was approved NCT PSYCHOLOGY INSTRUCTOR * Telephone Encounter - Joleen Thibodeaux - 03/26/2022 10:06 AM CST Started pa for pt insulin aspart (NovoLOG) 100 unit/mL (3 mL) pen for injection via covermymeds. Currently waiting on insurance response. NCT PSYCHOLOGY INSTRUCTOR documented in this encounter Plan of [...] Chronic Care Management No change(03/23 1:47 PM ADJUNCT PSYCHOLOGY INSTRUCTOR) No Ingrid Oden RN Note: Problem: Chronic Pain Goals: 1. Minimize further functional decline 2. Maximize quality of life 3. Control pain Strategies: - Activity/exercise program recommendation - Conservative stepwise pain medicine strategy with multi-disciplinary approach - Recommend healthy lifestyle strategies and compensatory methods as needed documented as of this encounter Visit Diagnoses Not on filedocumented in this encounter Care Teams Scientific Informatics Leader Relationship Specialty [place] [address] [place] [address] [address] [place] [address] PCP - General 07/10/16 Gautam Cope MD [address] [facility] [address] [place] [address] Medical Oncologist/Superintendent Refuse Disposal Medical Oncology 08/18/18 Tramaine Roe MD [address] [facility] [address] [place] [address] Referring Physician Urology 08/18/18 Sukhwinder Uribe MD [address] [facility] [address] [place] [address] Consulting Physician Urology 08/18/18 Shay Guillermo MD [address] [facility] [address] [place] [address] Referring Physician Urology 08/18/18 Marsha Landis, RN Registered Nurse 11/17/18 documented as of this encounter
--- OUTSIDE RECORDS SUMMARY | 2024-03-31 11:28 | XMS_ITS | Encounter Summary ---
Author Organization [facility] [employer] [facility] Address [address] [place] [address] Phone Care Team Providers Care Unit Control Clerk Name Role Phone Kraig Ching MD Primary Care Provider [phone] Gautam Cope MD Unavailable Tramaine Roe MD Unavailable [phone] Sukhwinder Uribe MD Unavailable [phone] Shay Guillermo MD Unavailable [phone] Marsha Landis RN Unavailable Unavailab le Reason for Visit * Episode Based Medications (Routine) - Authorized Specialty Diagnoses / Procedures Referred By Saleem t Referred To Contact Oncology Diagnoses Prostate cancer (HCC) Procedures UT LEUPROLIDE ACETATE SUSPNSION Leuprolide Every 3 Months - Prostate Gautam Cope MD [address] [facility] [address] [place] [address] Phone: tel: fax: [facility] - [facility] [address] [facility] [address] [place] [address] Referral ID Status Reason Start Date Expiration Date V isits Requested Visits Authorized [id number] Authorized 09/06/2018 07/11/2024 1 50 Encounter Details Date Type Department Care Team (Late st Contact Info) Description 03/10/2022 10:00 AM COREMAKER FLOOR Lab [facility] [address] [facility] Advanced Medicine 7th [place] [address] [place] [id number] Prostate cancer (CMS/HCC) (HCC) Social History Tobacco [...] on file Legal Sex Male 4:46 PM COREMAKER FLOOR Gender Identity Not on file Sexual Orientation [...] Chronic Care Management No change(03/23 1:47 PM COREMAKER FLOOR) No Ingrid Oden, RN Note: Problem: Chronic [...] 03/10/2022 documented in this encounter Care Teams Unit Control Clerk Relationship Specialty Start Date End Date Kraig Ching MD [address] [place] [address] PCP - General 07/10/16 Gautam Cope MD [address] [place] [address] Medical Oncologist/Ekg Tech Medical Oncology 08/18/18 Tramaine Roe MD [address] [place] [address] Referring Physician Urology 08/18/18 Sukhwinder Uribe MD [address] [facility] [address] [place] [address] Consulting Physician Urology 08/18/18 Shay Guillermo MD [address] [facility] [address] [place] [address] Referring Physician Urology 08/18/18 Marsha Landis, RN Registered Nurse 11/17/18 documented as of this encounter
--- OUTSIDE RECORDS SUMMARY | 2024-03-31 11:28 | XMS_ITS | Encounter Summary ---
Author Organization [facility] Address [address] [place] [address] Care Team Providers Care Financial Developer Name Role Phone Kraig Ching MD Primary Care Provider [phone] Gautam Cope MD Unavailable Tramaine Roe MD Unavailable [phone] Sukhwinder Uribe MD Unavailable [phone] Shay Guillermo MD Unavailable [phone] Marsha Landis RN Unavailable Unavailab le Encounter Details Date Type Department Care Team (Latest Contact Info) Description 02/12/2022 12:39 PM CDT - 02/12/2022 11:59 PM CDT Hospital Encounter [facility] [address] [place] [address] Discharge Disposition: Discharge to home or self [...] file Legal Sex Male 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 Minimize further functional decline 2. Maximize quality of life 3. Control pain Strategies: - Activity/exercise program recommendation - Conservative stepwise pain medicine strategy with multi-disciplinary approach - Recommend healthy lifestyle strategies and compensatory methods as needed documented as of this encounter Visit Diagnoses Not on filedocumented in this encounter Care Teams Financial Developer Relationship Specialty Start Date End Date Kraig Ching MD [address] [facility] [address] [place] [address] PCP - General 07/10/16 Gautam Cope MD [address] [facility] [address] [place] [address] Medical Oncologist/Hand Outside Cutter Medical Oncology 08/18/18 Tramaine Roe MD [address] [facility] [address] [place] [address] Referring Physician Urology 08/18/18 Sukhwinder Uribe MD [address] [facility] [address] [place] [address] Consulting Physician Urology 08/18/18 Shay Guillermo MD [address] [facility] [address] [place] [address] Referring Physician Urology 08/18/18 Marsha Landis, RN Registered Nurse 11/17/18 documented as of this encounter
--- OUTSIDE RECORDS SUMMARY | 2024-03-31 11:28 | XMS_ITS | Encounter Summary ---
Author Organization [facility] [employer] [facility] Address [address] [place] [address] Phone Care Team Providers Care Checkman Name Role Phone Kraig Ching MD Primary Care Provider [phone] Gautam Cope MD Unavailable Tramaine Roe MD Unavailable [phone] Sukhwinder Uribe MD Unavailable [phone] Shay Guillermo MD Unavailable [phone] Marsha Landis RN Unavailable Unavailab le Reason for Visit * Episode Based Medications (Routine) - Authorized Specialty Diagnoses / Procedures Referred By Saleem t Referred To Contact Oncology Diagnoses Prostate cancer (HCC) Procedures PA LEUPROLIDE ACETATE SUSPNSION Leuprolide Every 3 Months - Prostate Gautam Cope MD [address] [facility] [address] [place] [address] Phone: tel: fax: [facility] [address] [facility] [address] [place] [address] Referral ID Status Reason Start Date Expiration Date V isits Requested Visits Authorized [id number] Authorized 09/06/2018 07/11/2024 1 50 Encounter Details Date Type Department Care Team (Late st Contact Info) Description 12/16/2021 7:15 AM CDT Lab [facility] Oncology [address] [facility] 7th [place] [address] [place] [address] Prostate cancer (CMS/HCC) (HCC) Social History Tobacco [...] on file 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 Gender Identity Not on file Sexual [...] Chronic Care Management No change(03/23 1:47 PM SODA DRIER FEEDER) No Ingrid Oden, SHEA Note: Problem: Chronic [...] 12/16/2021 documented in this encounter Care Teams Checkman Relationship Specialty Start Date End Date Kraig Ching MD [address] [place] [address] PCP - General 07/10/16 Gautam Cope MD [address] [place] [address] Medical Oncologist/Edger Technician Medical Oncology 08/18/18 Tramaine Roe MD [address] [facility] [address] [place] [address] Referring Physician Urology 08/18/18 Sukhwinder Uribe MD [address] [facility] [address] [place] [address] Consulting Physician Urology 08/18/18 Shay Guillermo MD [address] [facility] [address] [place] [address] Referring Physician Urology 08/18/18 Marsha Landis, RN Registered Nurse 11/17/18 documented as of this encounter
--- OUTSIDE RECORDS SUMMARY | 2024-03-31 11:28 | XMS_ITS | Encounter Summary ---
Author Organization [facility] [employer] [facility] Address [address] [place] [address] Phone Care Team Providers Care Life Insurance Agent Name Role Phone Kraig Ching MD Primary Care Provider [phone] Gautam Cope MD Unavailable Tramaine Roe MD Unavailable [phone] Sukhwinder Uribe MD Unavailable [phone] Shay Guillermo MD Unavailable [phone] Marsha Landis RN Unavailable Unavailab le Reason for Visit * Consultation (Routine) - Authorized Specialty Diagnoses / Procedures Referred By Saleem narvaez Referred To Contact Oncology Diagnoses Prostate cancer (HCC) Tramaine Roe MD [address] [facility] [address] [place] [address] Phone: tel: fax: Gautam Cope MD [address] [facility] DIV IM MEDICAL ONCOLOGY, [address] [place] [address] Phone: tel: fax: Referral ID Status Reason Start Date Expiration Date Visits Requested Visits Authorized [id number] Authorized Specialty Services Required 08/15/2018 04/11/2024 99 99 Encounter Details Date Type Department Care Team (Late st Contact Info) Description 03/10/2022 11:00 AM USED CAR SALES MANAGER Office Visit [facility] Oncology [address] [facility] Advanced [facility] 7th [place] [address] [place] [address] Gautam Cope MD [address] [facility] [address] [place] [address] Prostate cancer (CMS/HCC) (HCC) Social History Tobacco [...] on file Legal Sex Male 4:46 PM USED CAR SALES MANAGER Gender Identity Not on file Sexual Orientation Not on file documented as of this encounter Last Filed Vital Signs Vital Sign Reading Time Taken Comments Blood Pressure 158/72 03/10/2022 10:17 AM USED CAR SALES MANAGER Pulse 83 03/10/2022 10:17 AM USED CAR SALES MANAGER Temperature 36.7 ??C (98.1 ??F) 03/10/2022 1 0:17 AM USED CAR SALES MANAGER Respiratory Rate 18 03/10/2022 10:1 5 AM USED CAR SALES MANAGER Oxygen Saturation 94% 03/10/2022 10: 17 AM USED CAR SALES MANAGER Inhaled Oxygen Concentration - - Weight 101.3 kg (223 lb 6.4 oz) 022 10:15 AM USED CAR SALES MANAGER Height - - Body Mass Index 32.05 [...] PSA dropping to an undetectable level. Mr. Kelly is tolerating therapy well, and taking abiraterone and prednisone properly. He continues to have urinary frequency, urgency, and incontinence. He has regular back pain related to what is felt to be a herniated disk, and results insome difficulty walking. 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 His other comorbidities include diabetes, hypertension, paroxysmal [...] 5. Hypertension. Managed by his PCP and friction welding machine operator. 6. Ground-glass opacities in his lungs. Stable, [...] - 03/11/2022 04:03 PM Gautam Cope M.D. circular saw filer ISAK/GLORIA/lul CAR SALES MANAGER documented in this encounter Plan of [...] to monitor diabetes and kidney status, etc. [facility] Chronic Pain Care Plan Chronic Care Management No change(03/23 1:47 PM USED CAR SALES MANAGER) No Ingrid Oden, RN Note: Problem: [...] 022 documented in this encounter Care Teams Life Insurance Agent Relationship Specialty Start Date End Date Kraig Ching MD [address] [place] [address] PCP - General 07/10/16 Gautam Cope MD [address] [facility] [address] [place] [address] Medical Oncologist/Tunnel Man Medical Oncology 08/18/18 Tramaine Roe MD [address] [facility] [address] [place] [address] Referring Physician Urology 08/18/18 Sukhwinder Uribe MD [address] [facility] [address] [place] [address] Consulting Physician Urology 08/18/18 Shay Guillermo MD [address] [facility] [address] [place] [address] Referring Physician Urology 08/18/18 Marsha Landis, RN Registered Nurse 11/17/18 documented as of this encounter
--- OUTSIDE RECORDS SUMMARY | 2024-03-31 11:28 | XMS_ITS | Encounter Summary ---
Author Organization [facility] [employer] [facility] Address [address] [place] [address] Phone Care Team Providers Care Acid Maker Name Role Phone Kraig Ching MD Primary Care Provider [phone] Gautam Cope MD Unavailable Tramaine Roe MD Unavailable [phone] Sukhwinder Uribe MD Unavailable [phone] Shay Guillermo MD Unavailable [phone] Marsha Landis RN Unavailable Unavailab le Reason for Visit * Consultation (Routine) - Authorized Specialty Diagnoses / Procedures Referred By Saleem narvaez Referred To Contact Oncology Diagnoses Prostate cancer (HCC) Tramaine Roe MD [address] [facility] [address] [place] [address] Phone: tel: fax: Gautam Cope MD [address] [facility] DIV IM MEDICAL ONCOLOGY, [address] [place] [address] Phone: tel: fax: Referral ID Status Reason Start Date Expiration Date Visits Requested Visits Authorized [id number] Authorized Specialty Services Required 08/15/2018 04/11/2024 99 99 Encounter Details Date Type Department Care Team (Late st Contact Info) Description 06/02/2022 10:30 AM INDEX EDITOR Lab [facility] Oncology [address] [facility] Advanced [facility] 7th [place] [address] [place] [address] Prostate cancer ([facility]) ([facility]) Social History Tobacco Use Types Packs/Day [...] on file Legal Sex Male 4:46 PM INDEX EDITOR Gender Identity Not on file Sexual [...] Chronic Care Management No change(03/23 1:47 PM INDEX EDITOR) No Ingrid Oden RN Note: Problem: [...] 06/02/2022 documented in this encounter Care Teams Acid Maker Relationship Specialty Start Date End Date Kraig Ching MD [address] [facility] [address] [place] [address] PCP - General 07/10/16 Gautma Cope MD [address] [place] [address] Medical Oncologist/Fleet Service Manager Medical Oncology 08/18/18 Tramaine Roe MD [address] [facility] [address] [place] [address] Referring Physician Urology 08/18/18 Sukhwinder Uribe MD [address] [facility] [address] [place] [address] Consulting Physician Urology 08/18/18 Shay Guillermo MD [address] [facility] [address] [place] [address] Referring Physician Urology 08/18/18 Marsha Landis, RN Registered Nurse 11/17/18 documented as of this encounter
--- OUTSIDE RECORDS SUMMARY | 2024-03-31 11:28 | XMS_ITS | Encounter Summary ---
Author Organization [facility] of [facility] Address [address] [place] [address] Phone Care Team Providers Care Shipyard Painter Apprentice Name Role Phone Kraig Ching MD Primary Care Provider Gautam Cope MD Unavailable Tramaine Roe MD Unavailable [phone] Sukhwinder Uribe MD Unavailable [phone] Shay Guillermo MD Unavailable [phone] Marsha Landis RN Unavailable Unavailab le Reason for Visit * Consultation (Routine) - Authorized Specialty Diagnoses / Procedures Referred By Saleem narvaez Referred To Contact Oncology Diagnoses Prostate cancer (HCC) Tramaine Roe MD [address] [facility] [address] [place] [address] Phone: tel: fax: Gautam Cope MD [address] [facility], [address] [place] [address] Phone: tel: fax: Referral ID Status Reason Start Date Expiration Date Visits Requested Visits Authorized [id number] Authorized Specialty Services Required 08/15/2018 04/11/2024 99 99 Encounter Details Date Type Department Care Team (Late st Contact Info) Description 06/02/2022 11:30 AM QUILL WINDER Office Visit [facility] Oncology [address] [facility] [address] [facility] 7th [place] [address] [place] [id number] Gautam Cope MD [address] [facility] [address] [place] [address] Prostate cancer (CMS/HCC) (HCC) (Primary Dx) Social [...] on file Legal Sex Male 4:46 PM QUILL WINDER Gender Identity Not on file Sexual Orientation Not on file documented as of this encounter Last Filed Vital Signs Vital Sign Reading Time Taken Comments Blood Pressure 159/72 06/02/2022 11:15 AM QUILL WINDER Pulse 73 06/02/2022 11:15 AM QUILL WINDER Temperature 36.2 ??C (97.1 ??F) 06/02/2022 11:[address] Respiratory Rate 20 06/02/2022 11:15 AM QUILL WINDER Oxygen Saturation 95% 06/02/2022 11:15 AM QUILL WINDER Inhaled Oxygen Concentration - - Weight 101.6 kg (224 lb) 06/02/2022 11:15 AM QUILL WINDER Height - - Body Mass Index 32.14 [...] noncontrast CT scan will be [facility]in [facility]. ELECTRONICALLY SIGNED - 06/02/2022 04:38 PM Gautam Cope M.D. trauma counsellor GLORIA/lul L WINDER documented in this encounter Plan of [...] Chronic Care Management No change(03/23 1:47 PM QUILL WINDER) No Ingrid Oden RN Note: Problem: Chronic [...] AM CDT) PSA-Total <0.02 <=6.20 ng/mL [facility] Comment: Interpretive Data ?AGE ? SEX [...] BLOOD ORDERABLES Final Resul t [facility] [address] [facility] Department [place] [address] * (ABNORMAL) Comprehensive metabolic panel (08/25/2022 9:51 AM CDT) Sodium 142 135 - 145 mmol/L [facility] Comment:Testing performed by : [facility], [address] [place] [phone] Potassium, pl 4.8 3.3 - 4.9 mmol/L [facility] Comment:Testing performed by : [facility], [address] [place] [phone] Chloride 103 97 - 110 mmol/L [facility] Comment:Testing performed by : [facility], [address] [place] [phone] CO2 30 22 - 32 mmol/L [facility] Comment:Testing performed by : [facility], [address] [place] [phone] Anion gap 9 2 - 15 mmol/L [facility] Comment:Testing performed by : [facility], [address] [place] [phone] BUN 29(H) 8 - 25 mg/dL [facility] Comment:Testing performed by : [facility], [address] [place] [phone] Creatinine 1.92(H) 0.80 - 1.30 mg/dL [facility] Comment:Testing performed by : [facility], [address] [place] [phone] Glucose 166 70 - 199 mg/dL [facility] [...] was last revised 2022. Testing performed by: [address] [address] Calcium 9.6 8.5 - 10.3 mg/dL [facility] Comment:Testing performed by : [facility], [address] [place] [phone] Bilirubin, total 0.5 0.1 - 1.2 mg/dL [facility] Comment:Testing performed by : [address] [address] Protein, pl 6.9 6.5 - 8.5 g/dL [facility] Comment:Testing performed by : [address] [address] Albumin 4.2 3.5 - 5.0 g/dL [facility] Comment:Testing performed by : [address] [address] Alk phos 123 40 - 130 Units/L [facility] Comment:Testing performed by : [address] [phone] ALT 11 7 - 55 Units/L [facility] Comment:Testing performed by : [address] [address] AST 12 10 - 50 Units/L [facility] Comment:Testing performed by : [address] [phone] Blood 08/25/2022 9:51 AM CDT 08/25/2022 9:55 AM CDT us Gautam Cope MD LAB BLOOD ORDERABLES Final Resul t [facility] [address] [facility] Department [place] [address] * (ABNORMAL) CBC with auto differential (08/25/2022 9:51 AM CDT) WBC 12.6(H) 3.8 - 9.8 K/cumm [facility] Comment:Testing performed by : [place] [id number] Hgb 12.6(L) 13.8 - 17.2 g/dL [facility] Comment:Testing performed by : [place] [id number] Hct 38.8(L) 40.7 - 50.3 % [facility] Comment:Testing performed by : [place] [id number] Plt 338 140 - 440 K/cumm [facility] Comment:Testing performed by : [place] [id number] MPV 7.6 6.8 - 10.4 fL [facility] Comment:Testing performed by : [place] [id number] RBC 4.36(L) 4.50 - 5.70 M/cumm [facility] Comment:Testing performed by : [address] [address] MCV 89.0 80.0 - 97.6 fL [facility] Comment:Testing performed by : [address] [address] MCH 28.8 26.7 - 33.7 pg [facility] Comment:Testing performed by : [address] [address] MCHC 32.4(L) 32.7 - 35.5 g/dL [facility] Comment:Testing performed by : [facility], [address] [place] [phone] RDW CV 14.8(H) 11.8 - 14.6 % [facility] Comment:Testing performed by : [facility], [address] [place] [phone] NRBC abs 0.01 0.00 - 0.01 K/cumm [facility] Comment:Testing performed by : [facility], [address] [place] [phone] Blood 08/25/2022 9:51 AM CDT 08/25/2022 9:55 AM CDT us Gautam Cope MD LAB BLOOD ORDERABLES Final Resul t Performing Organization Address [facility] Co de Phone Number [facility] Department [place] [address] * Lactate dehydrogenase (LD) (08/25/2022 9:51 AM CDT) Lactate dehydrogenase (LDH) 174 100 - 250 Units/L [facility] Comment:Testing performed by : [facility], [address] [place] [phone] Blood 08/25/2022 9:51 AM CDT 08/25/2022 9:55 AM CDT us Gautam Cope MD LAB BLOOD ORDERABLES Final Resul t Performing Organization Address [facility] Co de Phone Number [facility] [place] [address] documented in this encounter Visit Diagnoses Diagnosis Prostate cancer (HCC)- Primary Malignant neoplasm of prostate documented in this encounter Orders Appointment Requests Count Last Ordered Date Fi rst Ordered Date ONCBCN CLINIC APPOINTMENT REQUEST 2 023 06/02/2022 ONCBCN INJECTION APPOINTMENT REQUEST 1 08/10 ONCBCN LAB APPOINTMENT 1 08/25/2022 documented in this encounter Care Teams Shipyard Painter Apprentice Relationship Specialty Start Date End Date Kraig Ching MD [address] [place] [address] PCP - General 07/10/16 Gautam Cope MD [address] [place] [address] Medical Oncologist/Photo Booth Operator Medical Oncology 08/18/18 Tramaine Roe MD [address] [place] [address] Referring Physician Urology 08/18/18 Sukhwinder Uribe MD [address] [place] [address] Consulting Physician Urology 08/18/18 Shay Guillermo MD [address] [place] [address] Referring Physician Urology 08/18/18 Marsha Landis, RN Registered Nurse 11/17/18 documented as of this encounter
--- OUTSIDE RECORDS SUMMARY | 2024-03-31 11:28 | XMS_ITS | Encounter Summary ---
Author Organization [facility] Address [address] [facility] [address] [place] [address] Care Team Providers Care Dope Firer Name Role Phone Kraig Ching MD Primary Care Provider [phone] Gautam Cope MD Unavailable Tramaine Roe MD Unavailable [phone] Sukhwinder Uribe MD Unavailable [phone] Shay Guillermo MD Unavailable [phone] Marsha Landis RN Unavailable Unavailab le Reason for Visit * Reason Onset Date Comments Medication Request 04/27/2022 Encounter Details Date Type Department Care Team (Late st Contact Info) Description 04/27/2022 Telephone [facility] [address] [facility] [address] [place] [address] Kraig Ching MD [address] [facility] [address] [place] [address] Medication Request Social History Tobacco [...] on file Legal Sex Male 4:46 PM STRAND AND BINDER CONTROLLER Gender Identity Not on file Sexual Orientation Not on file documented as of this encounter Miscellaneous Notes * Telephone Encounter - Niurka Mann MA - 04/27/2022 11:43 AM CST Contacted pharmacy, script will be filled ND AND BINDER CONTROLLER * Telephone Encounter - Kristal Benitez - [...] needed, Pharmacy(s) medication(s) should be sent to: [facility] #[id number] Caller???s Callback #: [phone] Additional Comments: See refill encounter from 04.25.22 Does message need to be routed? Yes-Action Needed ND AND BINDER CONTROLLER documented in this encounter Plan of Treatment [...] Chronic Care Management No change(03/23 1:47 PM STRAND AND BINDER CONTROLLER) No Ingrid Oden, SHEA Note: Problem: Chronic Pain Goals: 1. Minimize further functional decline 2. Maximize quality of life 3. Control pain Strategies: - Activity/exercise program recommendation - Conservative stepwise pain medicine strategy with multi-disciplinary approach - Recommend healthy lifestyle strategies and compensatory methods as needed documented as of this encounter Visit Diagnoses Not on filedocumented in this encounter Care Teams Dope Firer Relationship Specialty Start Date End Date Kraig Ching MD [address] [facility] [address] [place] [address] PCP - General 07/10/16 Gautam Cope MD [address] [facility] [address] [place] [address] Medical Oncologist/V Belt Finisher Medical Oncology 08/18/18 Tramaine Roe MD [address] [facility] [address] [place] [address] Referring Physician Urology 08/18/18 Sukhwinder Uribe MD [address] [facility] [address] [place] [address] Consulting Physician Urology 08/18/18 Shay Guillermo MD [address] [facility] [address] [place] [address] Referring Physician Urology 08/18/18 Marsha Landis RN Registered Nurse 11/17/18 documented as of this encounter
--- OUTSIDE RECORDS SUMMARY | 2024-03-31 11:28 | XMS_ITS | Encounter Summary ---
Author Organization [facility] [place] [facility] Address [address] [place] [address] Phone Care Team Providers Care Space Control Supervisor Name Role Phone Kraig Ching MD Primary Care Provider [phone] Gautam Cope MD Unavailable Tramaine Roe MD Unavailable [phone] Sukhwinder Uribe MD Unavailable [phone] Shay Guillermo MD Unavailable [phone] Marsha Landis RN Unavailable Unavailab le Reason for Referral * MRI/CAT/PET Scan (Routine) - Closed Specialty Diagnoses / Procedures Referred By Saleem t Referred To Contact Radiology Diagnoses Prostate cancer (HCC) Procedures CT chest without contrast Gautam Cope MD [address] [facility] [address] [place] [address] Phone: tel: fax: [address] [address] Referral ID Status Reason Start Date Expiration Date Visits Re quested Visits Authorized [id number] Closed 03/08/2022 04/07/2023 1 1 OMER ENGINEER Encounter Details Date Type Department Care Team (Late st Contact Info) Description 03/08/2022 Orders Only [facility] Oncology [address] [facility] 7th [place] [address] [place] [address] Muna Saleem RN Prostate cancer [...] on file Legal Sex Male 4:46 PM CUSTOMER ENGINEER Gender Identity Not on file Sexual [...] Chronic Care Management No change(03/23 1:47 PM CUSTOMER ENGINEER) No Ingrid Oden, RN Note: Problem: Chronic Pain Goals: 1. Minimize further functional decline 2. Maximize quality of life 3. Control pain Strategies: - Activity/exercise program recommendation - Conservative stepwise pain medicine strategy with multi-disciplinary approach - Recommend healthy lifestyle strategies and compensatory methods as needed documented as of this encounter Results * CT chest without contrast (06/02/2022 1:06 PM CUSTOMER ENGINEER) Anatomical Region Laterality Modality Body N/A Computed Tomogra phy 06/02/2022 1:36 PM CUSTOMER ENGINEER Impressions 06/02/2022 1:59 PM CUSTOMER ENGINEER 1. ??No change in a 7 mm [...] Nhan Sosa M.D. Narrative 06/02/2022 1:59 PM CUSTOMER ENGINEER EXAMINATION: ??Computed tomography of the chest without [...] prostate documented in this encounter Care Teams Space Control Supervisor Relationship Specialty Start Date End Date Kraig Ching MD [address] [place], [place] [id number] PCP - General 07/10/16 Gautam Cope MD [address] [place] [address] Medical Oncologist/Janitor Custodian Medical Oncology 08/18/18 Tramaine Roe MD [address] [facility] [address] [place] [address] Referring Physician Urology 08/18/18 Sukhwinder Uribe MD [id number] [place] [address] Consulting Physician Urology 08/18/18 Shay Guillermo MD [address] [facility] [address] [place] [address] Referring Physician Urology 08/18/18 Marsha Landis RN Registered Nurse 11/17/18 documented as of this encounter
--- OUTSIDE RECORDS SUMMARY | 2024-03-31 11:28 | XMS_ITS | Encounter Summary ---
Author Organization [facility] Address [address] [facility] [address] [place] [address] Care Team Providers Care Pharmaceutical Process Engineer Name Role Phone Kraig Ching MD Primary Care Provider [phone] Gautam Cope MD Unavailable Tramaine Roe MD Unavailable [phone] Sukhwinder Uribe MD Unavailable Shay Guillermo MD Unavailable [phone] Marsha Landis RN Unavailable Unavailab le Reason for Visit * Reason Onset Date Comments Medical Records Request 03/18/2022 Encounter Details Date Type Department Care Team (Late st Contact Info) Description 03/18/2022 Telephone [facility] [address] [facility] [address] [place] [address] Kraig Ching MD [address] [facility] [address] [place] [address] Medical Records Request Social History [...] on file Legal Sex Male 4:46 PM ACCOUNT MANAGER TRAINEE Gender Identity Not on file Sexual Orientation Not on file documented as of this encounter Miscellaneous Notes * Telephone Encounter - Alexandria Hi - 03/18/2022 10:05 AM CST I faxed over both of his insurance cards. UNT MANAGER TRAINEE * Telephone Encounter - Comfort Salas - 03/18/2022 9:21 AM CST Medical Records Request Request Type: Records Request Practice Will Complete What records are being requested: Copy of patients current insurance card. Who will the records be sent to (if being sent to another doctor, list the doctor's name and specialty)? [facility] Date Needed: ravi Delivery Method: Fax Fax number to use for return of records: [phone] Caller???s Callback #: [phone] Additional Comments/Concerns: Pharmacy states that the patient dropped off a rx for a Rolator but they need a copy of the patient's insurance card. Does the message need to be routed? Yes-Action Needed UNT MANAGER TRAINEE documented in this encounter Plan of Treatment [...] Chronic Care Management No change(03/23 1:47 PM ACCOUNT MANAGER TRAINEE) No Ingrid Oden RN Note: Problem: Chronic Pain Goals: 1. Minimize further functional decline 2. Maximize quality of life 3. Control pain Strategies: - Activity/exercise program recommendation - Conservative stepwise pain medicine strategy with multi-disciplinary approach - Recommend healthy lifestyle strategies and compensatory methods as needed documented as of this encounter Visit Diagnoses Not on filedocumented in this encounter Care Teams Pharmaceutical Process Engineer Relationship Specialty Start Date End Date Kraig Ching MD [address] [facility] [address] [place] [address] PCP - General 07/10/16 Gautam Cope MD [address] [facility] [address] [place] [address] Medical Oncologist/Construction Supervisor Medical Oncology 08/18/18 Tramaine Roe MD [address] [facility] [address] [place] [address] Referring Physician Urology 08/18/18 Sukhwinder Uribe MD [address] [facility] [address] [place] [address] Consulting Physician Urology 08/18/18 Shay Guillermo MD [address] [facility] [address] [place] [address] Referring Physician Urology 08/18/18 Marsha Landis, RN Registered Nurse 11/17/18 documented as of this encounter
--- OUTSIDE RECORDS SUMMARY | 2024-03-31 11:28 | XMS_ITS | Encounter Summary ---
Author Organization [facility] Address [address] [place] [address] Phone Care Team Providers Care Boiler Tube Blower Name Role Phone Kraig Ching MD Primary Care Provider [phone] Gautam Cope MD Unavailable Tramaine Roe MD Unavailable [phone] Sukhwinder Uribe MD Unavailable [phone] Shay Guillermo MD Unavailable [phone] Marsha Landis RN Unavailable Unavailab le Encounter Details Date Type Department Care Team (Late st Contact Info) Description 03/08/2022 Orders Only [facility] Oncology [address] [facility] 7th [place] [address] [place] [address] Muna Saleem RN Prostate cancer [...] file Legal Sex Male 4:46 PM LEAD BI DEVELOPER Gender Identity Not on file Sexual [...] Care Management No change(03/23 1:47 PM LEAD BI DEVELOPER) No Ingrid Oden, RN Note: Problem: Chronic Pain Goals: 1. Minimize further functional decline 2. Maximize quality of life 3. Control pain Strategies: - Activity/exercise program recommendation - Conservative stepwise pain medicine strategy with multi-disciplinary approach - Recommend healthy lifestyle strategies and compensatory methods as needed documented as of this encounter Results * PSA diagnostic (06/02/2022 10:48 AM LEAD BI DEVELOPER) PSA-Total <0.02 <=6.20 ng/mL [facility] Comment: Interpretive Data ?AGE ? SEX ?REFERENCE INTERVAL 0 minutes-150 years ?Female ?None 0 minutes-49 years ? Male ?None ? 50-59 years ? Male ?0-3.90 ? 60-69 years ? Male ?0-5.40 ? 70-79 years ? Male ?0-6.20 ? 80-150 years ?Male ?0-6.20 The Daymai PSA Total assay procedure was used. Results from different manufacturers or methods may not be comparable. Serial testing should be performed using the same method. Current interpretive data last revised 21. Blood 06/02/2022 10:4 8 AM LEAD BI DEVELOPER 06/02/2022 11:17 AM LEAD BI DEVELOPER us Gautam Cope MD LAB BLOOD ORDERABLES Final Resul t [facility]LINE PERDOMO [facility] [place] [address] * (ABNORMAL) Comprehensive metabolic panel (06/02/2022 10:48 AM LEAD BI DEVELOPER) [facility] Signature Sodium 141 135 - 145 mmol/L [facility] Comment:Testing performed by : [facility], [address] [place] [phone] Potassium, pl 4.5 3.3 - 4.9 mmol/L [facility] Comment:Testing performed by : [facility], [address] [place] [phone] Chloride 101 97 - 110 mmol/L [facility] Comment:Testing performed by : [facility], [address] [place] [phone] CO2 33(H) 22 - 32 mmol/L [facility] Comment:Testing performed by : [facility], [address] [place] [phone] Anion gap 7 2 - 15 mmol/L [facility] Comment:Testing performed by : [facility], [address] [place] [phone] BUN 28(H) 8 - 25 mg/dL [facility] Comment:Testing performed by : [facility], [address] [place] [phone] Creatinine 1.95(H) 0.80 - 1.30 mg/dL [facility] Comment:Testing performed by : [facility], [address] [place] [phone] Glucose 147 70 - 199 mg/dL CERNER [facility] Comment: Interpretive Data Fasting glucose [...] last revised 2022. Testing performed by: [facility], [address] [place] [phone] Calcium 9.6 8.5 - 10.3 mg/dL [facility] Comment:Testing performed by : [facility], [address] [place] [phone] Bilirubin, total 0.6 0.1 - 1.2 mg/dL [facility] Comment:Testing performed by : [facility], [address] [place] [phone] Protein, pl 6.6 6.5 - 8.5 g/dL [facility] Comment:Testing performed by : [facility], [address] [place] [phone] Albumin 4.1 3.5 - 5.0 g/dL [facility] Comment:Testing performed by : [facility], [address] [place] [phone] Alk phos 132(H) 40 - 130 Units/L [facility] Comment:Testing performed by : [facility], [address] [place] [phone] ALT 12 7 - 55 Units/L [facility] Comment:Testing performed by : [facility], [address] [place] [phone] AST 13 10 - 50 Units/L [facility] Comment:Testing performed by : [facility], [address] [place] [phone] Blood 06/02/2022 10:4 8 AM LEAD BI DEVELOPER 06/02/2022 10:49 AM LEAD BI DEVELOPER us Gautam Cope MD LAB BLOOD ORDERABLES Final Resul t [facility] Department [place] [address] * (ABNORMAL) CBC with auto differential (06/02/2022 10:48 AM LEAD BI DEVELOPER) WBC 11.5(H) 3.8 - 9.8 K/cumm [facility] Comment:Testing performed by : [facility], [address] [place] [phone] Hgb 12.9(L) 13.8 - 17.2 g/dL [facility] Comment:Testing performed by : [facility], [address] [place], [place] [phone] Hct 39.4(L) 40.7 - 50.3 % [facility] Comment:Testing performed by : [facility], [address] [place], [place] [phone] Plt 351 140 - 440 K/cumm [facility] Comment:Testing performed by : [facility], [address] [place], [place] [phone] MPV 7.3 6.8 - 10.4 fL [facility] Comment:Testing performed by : [place] [id number] RBC 4.47(L) 4.50 - 5.70 M/cumm [facility] Comment:Testing performed by : [place] [id number] MCV 88.2 80.0 - 97.6 fL [facility] Comment:Testing performed by : [facility], [address] [place], [place] [phone] MCH 28.8 26.7 - 33.7 pg [facility] Comment:Testing performed by : [place] [id number] MCHC 32.7 32.7 - 35.5 g/dL [facility] Comment:Testing performed by : [place] [id number] RDW CV 14.1 11.8 - 14.6 % [facility] Comment:Testing performed by : [facility], [address] [place], [place] [phone] NRBC abs 0.00 0.00 - 0.01 K/cumm [facility] Comment:Testing performed by : [place] [id number] Blood 06/02/2022 10:4 8 AM LEAD BI DEVELOPER 06/02/2022 10:49 AM LEAD BI DEVELOPER us Gautam Cope MD LAB BLOOD ORDERABLES Final Resul t [facility] Department [place] [address] * Lactate dehydrogenase (LD) (06/02/2022 10:48 AM LEAD BI DEVELOPER) Lactate dehydrogenase (LDH) 173 100 - 250 Units/L [facility] Comment:Testing performed by : [facility], [address] [facility] [place] [address] Blood 06/02/2022 10:4 8 AM LEAD BI DEVELOPER 06/02/2022 10:49 AM LEAD BI DEVELOPER us Gautam Cope MD LAB BLOOD ORDERABLES Final Resul t Performing Organization Address [facility] Co de Phone Number [facility] [place] [address] documented in this encounter Visit Diagnoses Diagnosis Prostate cancer (HCC)- Primary Malignant neoplasm of prostate documented in this encounter Orders Appointment Requests Count Last Ordered Date Fi rst Ordered Date ONCBCN CLINIC APPOINTMENT REQUEST 1 023 ONCBCN INJECTION APPOINTMENT REQUEST 05/14 ONCBCN LAB APPOINTMENT 1 06/02/2022 documented in this encounter Care Teams Boiler Tube Blower Relationship Specialty Start Date End Date Kraig Ching MD [address] [facility] [address] [place] [address] PCP - General 07/10/16 Gautam Cope MD [address] [facility] [address] [place] [address] Medical Oncologist/Sintering Plant Supervisor Medical Oncology 08/18/18 Tramaine Roe MD [address] [facility] [address] [place] [address] Referring Physician Urology 08/18/18 Sukhwinder Uribe MD [address] [facility] [address] [place] [address] Consulting Physician Urology 08/18/18 Shay Guillermo MD [address] [facility] [address] [place] [address] Referring Physician Urology 08/18/18 Marsha Landis, SHEA Registered Nurse 11/17/18 documented as of this encounter
--- OUTSIDE RECORDS SUMMARY | 2024-03-31 11:28 | XMS_ITS | Encounter Summary ---
Author Organization [facility] Address [address] [place] [address] Care Team Providers Care Fruit Sorter Name Role Phone Kraig Ching MD Primary Care Provider [phone] Gautam Cope MD Unavailable Tramaine Roe MD Unavailable [phone] Sukhwinder Uribe MD Unavailable [phone] Shay Guillermo MD Unavailable [phone] Marsah Landis RN Unavailable Unavailab le Encounter Details Date Type Department Care Team (Latest Contact Info) Description 06/02/2022 9:02 AM CONSTRUCTION PERSON - 06/02/2022 12:37 PM CONSTRUCTION PERSON Hospital Encounter [facility] [address] [place] [address] Prostate cancer (CMS/HCC) (HCC) Discharge Disposition: Discharge [...] on file Legal Sex Male 4:46 PM CONSTRUCTION PERSON Gender Identity Not on file Sexual [...] Management No change(09/06 4:37 PM CDT) Ilene Yaadv, RN Note: Problem: Knowledge deficit related to [...] Chronic Care Management No change(03/23 1:47 PM CONSTRUCTION PERSON) No Ingrid Oden, SHEA Note: Problem: [...] Diagnosis Comments EGFR STAT 06/02/2022 10:48 AM CONSTRUCTION PERSON Prostate cancer (CMS/HCC) (HCC) DIFFERENTIAL AUTO Routine 06/02/2022 10: 48 AM CONSTRUCTION PERSON Prostate cancer (CMS/HCC) (HCC) CBC WITH AUTO DIFFERENTIAL Routine 06/02/2022 10:48 AM CONSTRUCTION PERSON Prostate cancer (CMS/HCC) (HCC) PSA DIAGNOSTIC Routine 06/02/2022 10:48 AM CONSTRUCTION PERSON Prostate cancer (CMS/HCC) (HCC) LACTATE DEHYDROGENASE Routine 06/02/2022 10:48 AM CONSTRUCTION PERSON Prostate cancer (CMS/HCC) (HCC) COMPREHENSIVE METABOLIC PANEL STAT 06/02/2022 10:48 AM CONSTRUCTION PERSON Prostate cancer (CMS/HCC) (HCC) documented in this encounter Results * (ABNORMAL) eGFR (06/02/2022 10:48 AM CONSTRUCTION PERSON) eGFR 34(L) 90 - 130 mL/min/1. 73 [...] was last reviewed 2021. Testing performed by: [facility], [address] [place] [phone] Blood 06/02/2022 10:4 8 AM CONSTRUCTION PERSON 06/02/2022 10:49 AM CONSTRUCTION PERSON us Gautam Cope MD LAB BLOOD ORDERABLES Final Resul t [facility] PER[facility] Department [place] [address] * (ABNORMAL) Differential, auto (06/02/2022 10:48 AM CONSTRUCTION PERSON) Neutrophil abs 8.7(H) 1.8 - 6.6 K/cumm [facility] Comment:Testing performed by : [facility], [address] [place] [phone] Lymphocyte abs 1.6 1.2 - 3.3 K/cumm [facility] Comment:Testing performed by : [facility], [address] [place] [phone] Monocyte abs 1.0 0.2 - 1.2 K/cumm [facility] Comment:Testing performed by : [facility], [address] [place] [phone] Eosinophil abs 0.2 0.0 - 0.5 K/cumm [facility] Comment:Testing performed by : [facility], [address] [place] [phone] Basophil abs 0.1 0.0 - 0.2 K/cumm [facility] Comment:Testing performed by : [facility], [address] [place] [phone] Neutrophil pct 75.5 % [facility] PERDOMO Comment: Interpretive Data Percent cell count reference ranges are not reported, since discordance with absolute values may lead to misinterpretation of CBC data. Current Interpretive Data was last revised on 2017. Testing performed by: [facility], [address] [place] [phone] Lymphocyte pct 14.1 % [facility] PERDOMO Comment: Interpretive Data Percent cell count reference ranges are not reported, since discordance with absolute values may lead to misinterpretation of CBC data. Current Interpretive Data was last revised on 2017. Testing performed by: [facility], [address] [place] [phone] Monocyte pct 8.3 % [facility] PERDOMO Comment:Testing performed by : [facility], [address] [place] [phone] Eosinophil pct 1.5 % [facility] PERDOMO Comment:Testing performed by : [facility], [address] [place] [phone] Basophil pct 0.6 % [facility] PERDOMO Comment:Testing performed by : [facility], [address] [place] [phone] Blood 06/02/2022 10:4 8 AM CONSTRUCTION PERSON 06/02/2022 10:49 AM CONSTRUCTION PERSON us Gautam Cope MD LAB BLOOD ORDERABLES Final Resul t Performing Organization Address City/[facility]/ZIP Co de Phone Number [facility] [place] [address] * Lactate dehydrogenase (LD) (06/02/2022 10:48 AM CONSTRUCTION PERSON) Lactate dehydrogenase (LDH) 173 100 - 250 Units/L [facility] PERDOMO Comment:Testing performed by : [facility], [address] [place] [phone] Blood 06/02/2022 10:4 8 AM CONSTRUCTION PERSON 06/02/2022 10:49 AM CONSTRUCTION PERSON us Gautam Cope MD LAB BLOOD ORDERABLES Final Resul t Performing Organization Address City/[facility]/ZIP Co de Phone Number [facility] [place] [address] * (ABNORMAL) CBC with auto differential (06/02/2022 10:48 AM CONSTRUCTION PERSON) WBC 11.5(H) 3.8 - 9.8 K/cumm [facility] Comment:Testing performed by : [facility], [address] [place], [place] [phone] Hgb 12.9(L) 13.8 - 17.2 g/dL [facility] Comment:Testing performed by : [facility], [address] [place], [place] [phone] Hct 39.4(L) 40.7 - 50.3 % [facility] Comment:Testing performed by : [facility], [address] [place], [place] [phone] Plt 351 140 - 440 K/cumm [facility] Comment:Testing performed by : [place] [id number] MPV 7.3 6.8 - 10.4 fL [facility] Comment:Testing performed by : [place] [id number] RBC 4.47(L) 4.50 - 5.70 M/cumm [facility] Comment:Testing performed by : [place] [id number] MCV 88.2 80.0 - 97.6 fL [facility] Comment:Testing performed by : [place] [id number] MCH 28.8 26.7 - 33.7 pg [facility] Comment:Testing performed by : [place] [id number] MCHC 32.7 32.7 - 35.5 g/dL [facility] Comment:Testing performed by : [place] [id number] RDW CV 14.1 11.8 - 14.6 % [facility] Comment:Testing performed by : [address] [phone] NRBC abs 0.00 0.00 - 0.01 K/cumm [facility] Comment:Testing performed by : [facility], [address] [place] [phone] Blood 06/02/2022 10:4 8 AM CONSTRUCTION PERSON 06/02/2022 10:49 AM CONSTRUCTION PERSON us Gautam Cope MD LAB BLOOD ORDERABLES Final Resul t [facility] PERDOMO [facility] Department [place] [address] * (ABNORMAL) Comprehensive metabolic panel (06/02/2022 10:48 AM CONSTRUCTION PERSON) Sodium 141 135 - 145 mmol/L [facility] PERDOMO Comment:Testing performed by : [facility], [address] [place] [phone] Potassium, pl 4.5 3.3 - 4.9 mmol/L [facility] PERDOMO Comment:Testing performed by : [facility], [address] [place] [phone] Chloride 101 97 - 110 mmol/L [facility] PERDOMO Comment:Testing performed by : [facility], [address] [place] [phone] CO2 33(H) 22 - 32 mmol/L [facility] PERDOMO Comment:Testing performed by : [facility], [address] [place] [phone] Anion gap 7 2 - 15 mmol/L [facility] PERDOMO Comment:Testing performed by : [facility], [address] [place] [phone] BUN 28(H) 8 - 25 mg/dL [facility] PERDOMO Comment:Testing performed by : [facility], [address] [place] [phone] Creatinine 1.95(H) 0.80 - 1.30 mg/dL [facility]LINE PERDOMO Comment:Testing performed by : [facility], [address] [place] [phone] Glucose 147 70 - 199 mg/dL MERLINE [...] was last revised 2022. Testing performed by: [facility], [address] [place] [phone] Calcium 9.6 8.5 - 10.3 mg/dL [facility] Comment:Testing performed by : [address] [phone] Bilirubin, total 0.6 0.1 - 1.2 mg/dL [facility] Comment:Testing performed by : [address] [phone] Protein, pl 6.6 6.5 - 8.5 g/dL [facility] Comment:Testing performed by : [facility], [address] [place] [phone] Albumin 4.1 3.5 - 5.0 g/dL [facility] Comment:Testing performed by : [address] [phone] Alk phos 132(H) 40 - 130 Units/L [facility] Comment:Testing performed by : [address] [phone] ALT 12 7 - 55 Units/L [facility] Comment:Testing performed by : [facility], [address] [place] [phone] AST 13 10 - 50 Units/L [facility] Comment:Testing performed by : [address] [phone] Blood 06/02/2022 10:4 8 AM CONSTRUCTION PERSON 06/02/2022 10:49 AM CONSTRUCTION PERSON us Gautam Cope MD LAB BLOOD ORDERABLES Final Resul t [facility] Department [place] [address] * PSA diagnostic (06/02/2022 10:48 AM CONSTRUCTION PERSON) PSA-Total <0.02 <=6.20 ng/mL [facility] PERDOMO Comment: [...] revised 21. Blood 06/02/2022 10:4 8 AM CONSTRUCTION PERSON 06/02/2022 11:17 AM CONSTRUCTION PERSON us Gautam Cope MD LAB BLOOD ORDERABLES Final Resul t [facility] PERDOMO [facility] Department [place] [address] documented in this encounter Visit Diagnoses Diagnosis Prostate cancer (HCC) Malignant neoplasm of prostate documented in this encounter Care Teams Fruit Sorter Relationship Specialty Start Date End Date Kraig Ching MD [address] [facility] [address] [place] [address] PCP - General 07/10/16 Gautam Cope MD [address] [facility] [address] [place] [address] Medical Oncologist/Financial Aid Director Medical Oncology 08/18/18 Tramaine Roe MD [address] [facility] [address] [place] [address] Referring Physician Urology 08/18/18 Sukhwinder Uribe MD [address] [facility] [address] [place] [address] Consulting Physician Urology 08/18/18 Shay Guillermo MD [address] [facility] [address] [place] [address] Referring Physician Urology 08/18/18 Marsha Landis, RN Registered Nurse 11/17/18 documented as of this encounter
--- OUTSIDE RECORDS SUMMARY | 2024-03-31 11:28 | XMS_ITS | Encounter Summary ---
Author Organization [facility] Address [address] [place] [address] Phone Care Team Providers Care Cylinder Loader Name Role Phone Kraig Ching MD Primary Care Provider [phone] Gautam Cope MD Unavailable Tramaine Roe MD Unavailable [phone] Sukhwinder Uribe MD Unavailable [phone] Shay Guillermo MD Unavailable [phone] Marsha Landis RN Unavailable Unavailab le Reason for Referral * Diagnostic Imaging (Routine) - Closed Specialty Diagnoses / Procedures Referred By Saleem t Referred To Contact Diagnoses Prostate cancer (HCC) Procedures Dexa Axial Skeleton Bone Density 1 or 2 Site Gautam Cope MD [address] [facility] [address] [place] [address] Phone: tel: fax: [facility] [address] [place] [address] Referral ID Status Reason Start Date Expiration Date Visits Re quested Visits Authorized [id number] Closed 03/10/2022 04/09/2023 1 1 OLLER Encounter Details Date Type Department Care Team (Late st Contact Info) Description 03/10/2022 Orders Only [facility] Oncology [address] [facility] 7th [place] [address] [place] [address] Muna Saleem RN Prostate cancer [...] on file Legal Sex Male 4:46 PM PATROLLER Gender Identity Not on file Sexual Orientation [...] Chronic Care Management No change(03/23 1:47 PM PATROLLER) No Ingrid Oden, SHEA Note: Problem: Chronic [...] 1 or 2 Site (06/10/2022 2:42 PM PATROLLER) Anatomical Region Laterality Modality Body N/A Radiographic Roberta ging Narrative 06/10/2022 3:17 PM PATROLLER Patient Name: David Wei Date of : 1940 Date of scan: 06/10/2022 Bone mineral density was performed on a HoloChujian Discovery Densitometer. ?? Based on machine cross-calibration [...] by the International Society of Clinical Densitometry. [id number] Gautam Cope MD IMG DXA PROCEDURES Final Result documented in this encounter Visit Diagnoses Diagnosis Prostate cancer (HCC)- Primary Malignant neoplasm of prostate Prostate cancer (HCC) Malignant neoplasm of prostate Androgen deprivation therapy Current chronic use of systemic steroids documented in this encounter Care Teams Cylinder Loader Relationship Specialty Start Date End Date Kraig Ching MD [address] [place] [address] PCP - General 07/10/16 Gautam Cope MD [address] [place] [address] Medical Oncologist/Fisher Spear Medical Oncology 08/18/18 Tramaine Roe MD [address] [place] [address] Referring Physician Urology 08/18/18 Sukhwinder Uribe MD [address] [place] [address] Consulting Physician Urology 08/18/18 Shay Guillermo MD [address] [place] [address] Referring Physician Urology 08/18/18 Marsha Landis, RN Registered Nurse 11/17/18 documented as of this encounter
--- OUTSIDE RECORDS SUMMARY | 2024-03-31 11:28 | XMS_ITS | Encounter Summary ---
Author Organization [facility] Medical Group Address [address] [place] [address] Care Team Providers Care Project Administrator Name Role Phone Kraig Ching MD Primary Care Provider [phone] Gautam Cope MD Unavailable Tramaine Roe MD Unavailable [phone] Sukhwinder Uribe MD Unavailable [phone] Shay Guillermo MD Unavailable [phone] Marsha Landis RN Unavailable Unavailab le Reason for Visit * Reason Onset Date Comments Covid-19 Home Monitoring 12/16/2021 Encounter Details Date Type Department Care Team (Late st Contact Info) Description 12/16/2021 Telephone [facility] Accountable Care Organization [address] [place] [address] Priyanka Lynch [address] [place] [address] Covid-19 Home Monitoring Social History Tobacco Use [...] on file Legal Sex Male 4:46 PM ACCOUNTS RECEIVABLE CLERK Gender Identity Not on file Sexual [...] Chronic Care Management No change(03/23 1:47 PM ACCOUNTS RECEIVABLE CLERK) No Ingrid Oden, SHEA Note: Problem: Chronic Pain Goals: 1. Minimize further functional decline 2. Maximize quality of life 3. Control pain Strategies: - Activity/exercise program recommendation - Conservative stepwise pain medicine strategy with multi-disciplinary approach - Recommend healthy lifestyle strategies and compensatory methods as needed documented as of this encounter Visit Diagnoses Not on filedocumented in this encounter Care Teams Project Administrator Relationship Specialty Start Date End Date Kraig Ching MD [address] [facility] [address] [place] [address] PCP - General 07/10/16 Gautam Cope MD [address] [facility] [address] [place] [address] Medical Oncologist/Manager Critical Care Medical Oncology 08/18/18 Tramaine Roe MD [address] [facility] [address] [place] [address] Referring Physician Urology 08/18/18 Sukhwinder Uribe MD [address] [facility] [address] [place] [address] Consulting Physician Urology 08/18/18 Shay Guillermo MD [address] [facility] [address] [place] [address] Referring Physician Urology 08/18/18 Marsha Landis, RN Registered Nurse 11/17/18 documented as of this encounter
--- OUTSIDE RECORDS SUMMARY | 2024-03-31 11:28 | XMS_ITS | Encounter Summary ---
Author Organization [facility] Healthcare Address [address] [place] [address] Care Team Providers Care Co Chairman Name Role Phone Kraig Ching MD Primary Care Provider [phone] Gautam Cope MD Unavailable Tramaine Roe MD Unavailable [phone] Sukhwinder Uribe MD Unavailable [phone] Shay Guillermo MD Unavailable [phone] Marsha Landis RN Unavailable Unavailab le Encounter Details Date Type Department Care Team (Latest Contact Info) Description 03/10/2022 12:34 PM DIGITAL CIRCUIT DESIGNER - 03/10/2022 11:59 PM DIGITAL CIRCUIT DESIGNER Hospital Encounter [facility] [address] [place] [address] Prostate cancer (CMS/HCC) (HCC) Discharge Disposition: Discharge [...] file Legal Sex Male 4:46 PM DIGITAL CIRCUIT DESIGNER Gender Identity Not on file Sexual [...] kidney disease) stage 3, GFR 30-59 ml/min ([facility]) Take 1 tablet (12.5 mg total) by [...] 02/10/2022 3 lancets (Accu-Chek Fastclix Lancet Drum) [facility] TEST BLOOD SUGAR [...] Care Management No change(03/23 1:47 PM DIGITAL CIRCUIT DESIGNER) No Ingrid Oden, RN Note: Problem: [...] Diagnosis Comments EGFR STAT 03/10/2022 10:10 AM DIGITAL CIRCUIT DESIGNER Prostate cancer (CMS/HCC) (HCC) DIFFERENTIAL AUTO Routine 03/10/2022 10: 10 AM DIGITAL CIRCUIT DESIGNER Prostate cancer (CMS/HCC) (HCC) CBC WITH AUTO DIFFERENTIAL Routine 03/10/2022 10:10 AM DIGITAL CIRCUIT DESIGNER Prostate cancer (CMS/HCC) (HCC) PSA DIAGNOSTIC Routine 03/10/2022 10:10 AM DIGITAL CIRCUIT DESIGNER Prostate cancer (CMS/HCC) (HCC) LACTATE DEHYDROGENASE Routine 03/10/2022 10:10 AM DIGITAL CIRCUIT DESIGNER Prostate cancer (CMS/HCC) (HCC) COMPREHENSIVE METABOLIC PANEL STAT 03/10/2022 10:10 AM DIGITAL CIRCUIT DESIGNER Prostate cancer (CMS/HCC) (HCC) documented in this encounter Results * (ABNORMAL) eGFR (03/10/2022 10:10 AM DIGITAL CIRCUIT DESIGNER) eGFR 32(L) 90 - 130 mL/min/1. 73 [...] was last reviewed 2021. Testing performed by: [facility], [address] [place] [phone] Blood 03/10/2022 10:1 0 AM DIGITAL CIRCUIT DESIGNER 03/10/2022 10:13 AM DIGITAL CIRCUIT DESIGNER us Gautam Cope MD LAB BLOOD ORDERABLES Final Resul t [facility] Department [place] [address] * (ABNORMAL) Differential, auto (03/10/2022 10:10 AM DIGITAL CIRCUIT DESIGNER) Neutrophil abs 8.1(H) 1.8 - 6.6 K/cumm [facility] Comment:Testing performed by : [facility], [address] [place] [phone] Lymphocyte abs 1.8 1.2 - 3.3 K/cumm [facility] Comment:Testing performed by : [facility], [address] [place] [phone] Monocyte abs 1.0 0.2 - 1.2 K/cumm [facility] Comment:Testing performed by : [facility], [address] [place] [phone] Eosinophil abs 0.1 0.0 - 0.5 K/cumm [facility] Comment:Testing performed by : [facility], [address] [place] [phone] Basophil abs 0.1 0.0 - 0.2 K/cumm [facility] Comment:Testing performed by : [facility], [address] [place] [phone] Neutrophil pct 73.0 % [facility] Comment: Interpretive Data Percent cell count reference ranges are not reported, since discordance with absolute values may lead to misinterpretation of CBC data. Current Interpretive Data was last revised on 2017. Testing performed by: [facility], [address] [place] [phone] Lymphocyte pct 15.7 % [facility] Comment: Interpretive Data Percent cell count reference ranges are not reported, since discordance with absolute values may lead to misinterpretation of CBC data. Current Interpretive Data was last revised on 2017. Testing performed by: [facility], [address] [place] [phone] Monocyte pct 9.2 % [facility] Comment:Testing performed by : [facility], [address] [place] [phone] Eosinophil pct 1.1 % [facility] Comment:Testing performed by : [facility], [address] [place] [phone] Basophil pct 1.0 % [facility] Comment:Testing performed by : [facility], [address] [place] [phone] Blood 03/10/2022 10:1 0 AM DIGITAL CIRCUIT DESIGNER 03/10/2022 10:13 AM DIGITAL CIRCUIT DESIGNER us Gautam Cope MD LAB BLOOD ORDERABLES Final Resul t Performing Organization Address City/State/[facility] Co de Phone Number [facility] Department [place] [address] * PSA diagnostic (03/10/2022 10:10 AM DIGITAL CIRCUIT DESIGNER) PSA-Total <0.02 <=6.20 ng/mL [facility] Comment: [...] revised 21. Blood 03/10/2022 10:1 0 AM DIGITAL CIRCUIT DESIGNER 03/10/2022 10:26 AM DIGITAL CIRCUIT DESIGNER us Gautam Cope MD LAB BLOOD ORDERABLES Final Resul t Performing Organization Address [facility] de Phone Number [facility] Department [place] [address] * Lactate dehydrogenase (LD) (03/10/2022 10:10 AM DIGITAL CIRCUIT DESIGNER) Lactate dehydrogenase (LDH) 166 100 - 250 Units/L [facility] Comment:Testing performed by : [facility], [address] [place] [phone] Blood 03/10/2022 10:1 0 AM DIGITAL CIRCUIT DESIGNER 03/10/2022 10:13 AM DIGITAL CIRCUIT DESIGNER us Gautam Cope MD LAB BLOOD ORDERABLES Final Resul t Performing Organization Address [facility] de Phone Number [facility] Department of Laboratories [place], [place] [id number] * (ABNORMAL) CBC with auto differential (03/10/2022 10:10 AM DIGITAL CIRCUIT DESIGNER) WBC 11.2(H) 3.8 - 9.8 K/cumm [facility] Comment:Testing performed by : [facility], [address] [place] [phone] Hgb 12.2(L) 13.8 - 17.2 g/dL [facility] Comment:Testing performed by : [facility], [address] [place], [place] [phone] Hct 37.2(L) 40.7 - 50.3 % [facility] Comment:Testing performed by : [facility], [address] [place] [address] Plt 328 140 - 440 K/cumm [facility] Comment:Testing performed by : [facility], [address] [place] [address] MPV 7.5 6.8 - 10.4 fL [facility] Comment:Testing performed by : [facility], [address] [place] [address] RBC 4.20(L) 4.50 - 5.70 M/cumm [facility] Comment:Testing performed by : [place] [address] MCV 88.5 80.0 - 97.[address] [facility] Comment:Testing performed by : [facility], [address] [place] [address] MCH 29.1 26.7 - 33.[address] [facility] Comment:Testing performed by : [place] [address] MCHC 32.9 32.7 - 35.5 g/dL [facility] Comment:Testing performed by : [place] [address] RDW CV 14.7(H) 11.8 - 14.6 % [facility] Comment:Testing performed by : [facility], [address] [place] [address] NRBC abs 0.00 0.00 - 0.01 K/cumm [facility] Comment:Testing performed by : [place] [address] Blood 03/10/2022 10:1 0 AM DIGITAL CIRCUIT DESIGNER 03/10/2022 10:13 AM DIGITAL CIRCUIT DESIGNER us Gautam Cope MD LAB BLOOD ORDERABLES Final Resul t [facility] Department [place] [address] * (ABNORMAL) Comprehensive metabolic panel (03/10/2022 10:10 AM DIGITAL CIRCUIT DESIGNER) Sodium 138 135 - 145 mmol/L [facility] Comment:Testing performed by : [facility], [address] [place] [phone] Potassium, pl 4.4 3.3 - 4.9 mmol/L [facility] Comment:Testing performed by : [facility], [address] [place] [phone] Chloride 103 97 - 110 mmol/L [facility] Comment:Testing performed by : [facility], [address] [place] [phone] CO2 28 22 - 32 mmol/L [facility] Comment:Testing performed by : [facility], [address] [place] [phone] Anion gap 8 2 - 15 mmol/L [facility] Comment:Testing performed by : [facility], [address] [place] [phone] BUN 42(H) 8 - 25 mg/dL [facility] Comment:Testing performed by : [facility], [address] [place] [phone] Creatinine 2.05(H) 0.80 - 1.30 mg/dL [facility] Comment:Testing performed by : [address] [phone] Glucose 101 70 - 199 mg/dL [facility] Comment: Interpretive Data Fasting glucose >/= [...] Testing performed by: [facility], [address] [place] [phone] Calcium 9.1 8.5 - 10.3 mg/dL [facility] Comment:Testing performed by : [facility], [address] [place] [phone] Bilirubin, total 0.4 0.1 - 1.2 mg/dL [facility] Comment:Testing performed by : [facility], [address] [place] [phone] Protein, pl 6.6 6.5 - 8.5 g/dL [facility] Comment:Testing performed by : [facility], [address] [place] [phone] Albumin 4.0 3.5 - 5.0 g/dL [facility] Comment:Testing performed by : [facility], [address] [place] [phone] Alk phos 114 40 - 130 Units/L [facility] Comment:Testing performed by : [facility], [address] [place] [phone] ALT 11 7 - 55 Units/L [facility] Comment:Testing performed by : [facility], [address] [place] [phone] AST 11 10 - 50 Units/L [facility] Comment:Testing performed by : [facility], [address] [place] [phone] Blood 03/10/2022 10:1 0 AM DIGITAL CIRCUIT DESIGNER 03/10/2022 10:13 AM DIGITAL CIRCUIT DESIGNER us Gautam Cope MD LAB BLOOD ORDERABLES Final Resul t [facility] Department [place] [address] documented in this encounter Visit Diagnoses Diagnosis Prostate cancer (HCC) Malignant neoplasm of prostate documented in this encounter Care Teams Co Chairman Relationship Specialty Start Date End Date Kraig Ching MD [address] [place] [address] [address] [place] [address] PCP - General 07/10/16 Gautam Cope MD [address] [facility] [address] [place] [address] Medical Oncologist/Analytical Laboratory Technician Medical Oncology 08/18/18 Tramaine Roe MD [address] [facility] [address] [place] [address] Referring Physician Urology 08/18/18 Sukhwinder Uribe MD [address] [facility] [address] [place] [address] Consulting Physician Urology 08/18/18 Shay Guillermo MD [address] [facility] [address] [place] [address] Referring Physician Urology 08/18/18 Marsha Landis, RN Registered Nurse 11/17/18 documented as of this encounter
--- OUTSIDE RECORDS SUMMARY | 2024-03-31 11:28 | XMS_ITS | Encounter Summary ---
Author Organization [facility] Address [address] [place] [address] Phone Care Team Providers Care Devops Architect Name Role Phone Kraig Ching MD Primary Care Provider Gautam Cope MD Unavailable Tramaine Roe MD Unavailable [phone] Sukhwinder Uribe MD Unavailable [phone] Shay Guillermo MD Unavailable [phone] Marsha Landis RN Unavailable Unavailab le Reason for Visit * Episode Based Medications (Routine) - Authorized Specialty Diagnoses / Procedures Referred By Saleem t Referred To Contact Oncology Diagnoses Prostate cancer (HCC) Procedures [place] LEUPROLIDE ACETATE SUSPNSION Leuprolide Every 3 Months - Prostate Gautam Cope MD [address] [facility] [address] [place] [address] Phone: tel: fax: [facility] [address] [facility] [address] [place] [address] Referral ID Status Reason Start Date Expiration Date V isits Requested Visits Authorized [id number] Authorized 09/06/2018 07/11/2024 1 50 Encounter Details Date Type Department Care Team (Late st Contact Info) Description 03/10/2022 12:00 PM CLAIMS CONFIGURATION ANALYST Infusion [facility] Oncology [address] [facility] 7th [place] [phone] Prostate cancer (CMS/HCC) (HCC) (Primary Dx) Social [...] on file Legal Sex Male 4:46 PM CLAIMS CONFIGURATION ANALYST Gender Identity Not on file Sexual Orientation Not on file documented as of this encounter Nursing Notes * Graciela Ruano, SHEA - 03/10/2022 12:00 PM CST Oncology Nursing Note [facility] David Wei is [...] Ambulatory Accompanied by: Self Discharged To: Home MS CONFIGURATION ANALYST documented in this encounter Plan of [...] Chronic Care Management No change(03/23 1:47 PM CLAIMS CONFIGURATION ANALYST) No Ingrid Oden, SHEA Note: Problem: [...] te cancer (HCC) Given 03/10/2022 11:51 AM CLAIMS CONFIGURATION ANALYST 22.5 mg Left Lower Abdomen documented in this encounter Orders Nursing Count Last Ordered Date First Orde red Date ONCBCN TREATMENT PARAMETERS 2 1 03/10/2022 Appointment Requests Count Last Ordered Date Fi rst Ordered Date ONCBCN INJECTION APPOINTMENT REQUEST 1 02/11 documented in this encounter Care Teams Devops Architect Relationship Specialty Start Date End Date Kraig Ching MD [address] [place] [address] PCP - General 07/10/16 Gautam Cope MD [address] [place] [address] Medical Oncologist/Water Quality Technician Medical Oncology 08/18/18 Tramaine Roe MD [address] [place] [address] Referring Physician Urology 08/18/18 Sukhwinder Uribe MD [address] [place] [address] Consulting Physician Urology 08/18/18 Shay Guillermo MD [address] [place] [address] Referring Physician Urology 08/18/18 Marsha Landis, RN Registered Nurse 11/17/18 documented as of this encounter
--- OUTSIDE RECORDS SUMMARY | 2024-03-31 11:28 | XMS_ITS | Encounter Summary ---
Author Organization [facility] Healthcare Address [address] [place] [address] Care Team Providers Care Awning Hanger Supervisor Name Role Phone Kraig Ching MD Primary Care Provider [phone] Gautam Cope MD Unavailable Tramaine Roe MD Unavailable [phone] Sukhwinder Uribe MD Unavailable [phone] Shay Guillermo MD Unavailable [phone] Marsha Landis RN Unavailable Unavailab le Reason for Referral * MRI/CAT/PET Scan (Routine) - Closed Specialty Diagnoses / Procedures Referred By Saleem narvaez Referred To Contact Radiology Diagnoses Prostate cancer (HCC) Procedures CT chest without contrast Gautam Cope MD [address] [address] Phone: tel: fax: [facility] [address] [place] [address] Referral ID Status Reason Start Date Expiration Date Visits Re quested Visits Authorized [id number] Closed 03/08/2022 04/07/2023 1 1 EWORKER Reason for Visit * MRI/CAT/PET Scan (Routine) - Closed Specialty Diagnoses / Procedures Referred By Saleem narvaez Referred To Contact Radiology Diagnoses Prostate cancer (HCC) Procedures CT chest without contrast Gautam Cope MD [address] [place] [address] Phone: tel: fax: [facility] [address] [facility] [place] [address] Referral ID Status Reason Start Date Expiration Date Visits Re quested Visits Authorized [id number] Closed 03/08/2022 04/07/2023 1 1 Encounter Details Date Type Department Care Team (Latest Contact Info) Description 06/02/2022 12:38 PM STONEWORKER - 06/02/2022 11:59 PM STONEWORKER Hospital Encounter [facility] [address] [place] [address] Gautam Cope MD [address] [facility] [address] [place] [address] Prostate cancer (CMS/HCC) (HCC) Discharge [...] on file 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) TAKE 1 TABLET BY MOUTH DAILY 30 [...] Chronic Care Management No change(03/23 1:47 PM STONEWORKER) No Ingrid Oden, SHEA Note: Problem: Chronic [...] Read Routine (OP Routine) 06/02/2022 1:06 PM STONEWORKER Prostate cancer (CMS/HCC) (HCC) documented in this encounter Results * CT chest without contrast (06/02/2022 1:06 PM STONEWORKER) Anatomical Region Laterality Modality Body N/A Computed Tomogra phy 06/02/2022 1:36 PM STONEWORKER Impressions 06/02/2022 1:59 PM STONEWORKER 1. ??No change in a 7 mm [...] Nhan Sosa M.D. Narrative 06/02/2022 1:59 PM STONEWORKER EXAMINATION: ??Computed tomography of the chest without [...] prostate documented in this encounter Care Teams Awning Hanger Supervisor Relationship Specialty Start Date End Date Kraig Ching MD [address] [facility] [address] [place] [address] PCP - General 07/10/16 Gautam Cope MD [address] [facility] [address] [place] [address] Medical Oncologist/Bond Underwriter Medical Oncology 08/18/18 Tramaine Roe MD [address] [facility] [address] [place] [address] Referring Physician Urology 08/18/18 Sukhwinder Uribe MD [address] [facility] [address] [place] [address] Consulting Physician Urology 08/18/18 Shay Guillermo MD [address] [facility] [address] [place] [address] Referring Physician Urology 08/18/18 Marsha Landis, RN Registered Nurse 11/17/18 documented as of this encounter
[2024-03-31 11:29] LABS: Glucose Point of Care 148 mg/dl (65-105)
--- OUTSIDE RECORDS SUMMARY | 2024-03-31 11:29 | XMS_ITS | Encounter Summary ---
Author Organization [facility] Medical Group Address [address] [facility] [address] [place] [address] Care Team Providers Care Culture Room Worker Name Role Phone Kraig Ching MD Primary Care Provider [phone] Gautam Cope MD Unavailable Tramaine Roe MD Unavailable [phone] Sukhwinder Uribe MD Unavailable Shay Guillermo MD Unavailable [phone] Marsha Landis RN Unavailable Unavailab le Reason for Visit * Reason Onset Date Comments Medication Request 09/10/2021 Encounter Details Date Type Department Care Team (Late st Contact Info) Description 09/10/2021 Telephone [facility] [address] [facility] [address] [place] [address] Kraig Ching MD [address] [facility] [address] [place] [address] Medication Request Social History Tobacco [...] on file 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 Caller???s Call back #: [phone] Unable to see patient message in Encounters. [...] Chronic Care Management No change(03/23 1:47 PM LEAFLET DISTRIBUTOR) No Ingrid Oden, SHEA Note: Problem: Chronic Pain Goals: 1. Minimize further functional decline 2. Maximize quality of life 3. Control pain Strategies: - Activity/exercise program recommendation - Conservative stepwise pain medicine strategy with multi-disciplinary approach - Recommend healthy lifestyle strategies and compensatory methods as needed documented as of this encounter Visit Diagnoses Not on filedocumented in this encounter Care Teams Culture Room Worker Relationship Specialty Start Date End Date Kraig Ching MD [address] [place] [address] PCP - General 07/10/16 Gautam Cope MD [address] [place] [address] Medical Oncologist/Raw Stock Drier Tender Medical Oncology 08/18/18 Tramaine Roe MD [address] [place] [address] Referring Physician Urology 08/18/18 Sukhwinder Uribe MD [address] [place] [address] Consulting Physician Urology 08/18/18 Shay Guillermo MD [address] [place] [address] Referring Physician Urology 08/18/18 Marsha Landis, RN Registered Nurse 11/17/18 documented as of this encounter
--- OUTSIDE RECORDS SUMMARY | 2024-03-31 11:29 | XMS_ITS | Encounter Summary ---
Author Organization [facility] Address [address] [place] [address] Phone Care Team Providers Care Relationship Executive Name Role Phone Kraig Ching MD Primary Care Provider [phone] Gautam Cope MD Unavailable Tramaine Roe MD Unavailable [phone] Sukhwinder Uribe MD Unavailable [phone] Shay Guillermo MD Unavailable [phone] Mrasha Landis RN Unavailable Unavailab le Encounter Details Date Type Department Care Team (Late st Contact Info) Description 12/12/2021 Documentation [facility] Oncology [address] [facility] Advanced Medicine 7th [place] [address] [place] [id number] Muna Saleem RN Social History Tobacco Use [...] on file 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 Minimize further functional decline 2. Maximize quality of life 3. Control pain Strategies: - Activity/exercise program recommendation - Conservative stepwise pain medicine strategy with multi-disciplinary approach - Recommend healthy lifestyle strategies and compensatory methods as needed documented as of this encounter Visit Diagnoses Not on filedocumented in this encounter Care Teams Relationship Executive Relationship Specialty Start Date End Date Kraig Ching MD [address] [facility] [address] [place] [address] PCP - General 07/10/16 Gautam Cope MD [address] [facility] [address] [place] [address] Medical Oncologist/Career Portals Teacher Medical Oncology 08/18/18 Tramaine Roe MD [address] [facility] [address] [place] [address] Referring Physician Urology 08/18/18 Sukhwinder Uribe MD [address] [facility] [address] [place] [address] Consulting Physician Urology 08/18/18 Shay Guillermo MD [address] [address] Referring Physician Urology 08/18/18 Marsha Landis RN Registered Nurse 11/17/18 documented as of this encounter
--- OUTSIDE RECORDS SUMMARY | 2024-03-31 11:29 | XMS_ITS | Encounter Summary ---
Author Organization [facility] Address [address] [place] [address] Phone Care Team Providers Care Shower Doors And Panels Fabricator Name Role Phone Kraig Ching MD Primary Care Provider [phone] Gautam Cope MD Unavailable Tramaine Roe MD Unavailable [phone] Sukhwinder Uribe MD Unavailable [phone] Shay Guillermo MD Unavailable [phone] Marsha Landis RN Unavailable Unavailab le Encounter Details Date Type Department Care Team (Late st Contact Info) Description 09/15/2021 Orders Only [facility] Oncology [address] [place] [address] Muna Saleem RN Prostate cancer (CMS/HCC) (HCC) [...] on file 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 Gender Identity Not on file Sexual Orientation [...] Chronic Care Management No change(03/23 1:47 PM PROTEIN SCIENTIST) No Ingrid Oden, SHEA Note: Problem: Chronic [...] A1C 8.4(H) 4.0 - 5.6 % [facility] Estimated Average Glucose 194 mg/dL [facility] Comment: The ADA recommends reporting an [...] ORDERABLES Final Resul t [facility] Department of Laboratories [place], [place] [id number] documented in this encounter Visit Diagnoses Diagnosis Prostate cancer (HCC)- Primary Malignant neoplasm of prostate documented in this encounter Care Teams Shower Doors And Panels Fabricator Relationship Specialty Start Date End Date Kraig Ching MD [address] [facility] [address] [place], [place] [id number] PCP - General 07/10/16 Gautam Cope MD [address] [facility] [address] [place], [place] [id number] Medical Oncologist/Development And Housing Director Medical Oncology 08/18/18 Tramaine Roe MD [address] [facility] [address] [place] [address] Referring Physician Urology 08/18/18 Sukhwinder Uribe MD [address] [facility] [address] [place] [address] Consulting Physician Urology 08/18/18 Shay Guillermo MD [address] [facility] [address] [place] [address] Referring Physician Urology 08/18/18 Marsha Landis, RN Registered Nurse 11/17/18 documented as of this encounter
--- OUTSIDE RECORDS SUMMARY | 2024-03-31 11:29 | XMS_ITS | Encounter Summary ---
Author Organization [facility] Address [address] [place] [address] Phone Care Team Providers Care News Commentator Name Role Phone Kraig Ching MD Primary Care Provider [phone] Gautam Cope MD Unavailable Tramaine Roe MD Unavailable [phone] Sukhwinder Uribe MD Unavailable [phone] Shay Guillermo MD Unavailable [phone] Marsha Landis RN Unavailable Unavailab le Reason for Visit * Episode Based Medications (Routine) - Authorized Specialty Diagnoses / Procedures Referred By Saleem t Referred To Contact Oncology Diagnoses Prostate cancer (HCC) Procedures ID LEUPROLIDE ACETATE SUSPNSION Leuprolide Every 3 Months - Prostate Gautam Cope MD [address] [facility] [address] [place] [address] Phone: tel: fax: [facility] - Infusion [address] [facility] [address] [place] [address] Referral ID Status Reason Start Date Expiration Date V isits Requested Visits Authorized [id number] Authorized 09/06/2018 07/11/2024 1 50 Encounter Details Date Type Department Care Team (Late st Contact Info) Description 09/16/2021 10:15 AM CDT Lab [facility] Oncology [address] [facility] 7th [place] [address] [place] [id number] Prostate cancer (CMS/HCC) (HCC) Social History Tobacco [...] file 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 [facility] Chronic Pain Care Plan Chronic Care Management No change(03/23 1:47 PM DIGITAL MARKETING MANAGER) No Ingrid Oden, SHEA Note: Problem: [...] 09/16/2021 documented in this encounter Care Teams News Commentator Relationship Specialty Start Date End Date Kraig Ching MD [address] [place] [address] PCP - General 07/10/16 Gautam Cope MD [address] [place] [address] Medical Oncologist/Truck Greaser Medical Oncology 08/18/18 Tramaine Roe MD [address] [facility] [address] [place] [address] Referring Physician Urology 08/18/18 Sukhwinder Uribe MD [address] [facility] [address] [place] [address] Consulting Physician Urology 08/18/18 Shay Guillermo MD [address] [facility] [address] [place] [address] Referring Physician Urology 08/18/18 Marsha Landis, RN Registered Nurse 11/17/18 documented as of this encounter
--- OUTSIDE RECORDS SUMMARY | 2024-03-31 11:29 | XMS_ITS | Encounter Summary ---
Author Organization [facility] Address [address] [place] [address] Phone Care Team Providers Care Employee Relation Manager Name Role Phone Kraig Ching MD Primary Care Provider [phone] Gautam Cope MD Unavailable Tramaine Roe MD Unavailable [phone] Sukhwinder Uribe MD Unavailable [phone] Shay Guillermo MD Unavailable [phone] Marsha Landis RN Unavailable Unavailab le Encounter Details Date Type Department Care Team (Late st Contact Info) Description 11/21/2021 Telephone [facility] Nephrology [address] [facility] Advanced Medicine 5th [place] [address] [place] [address] Comfort Barrios RMA Social History [...] on file 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 Minimize further functional decline 2. Maximize quality of life 3. Control pain Strategies: - Activity/exercise program recommendation - Conservative stepwise pain medicine strategy with multi-disciplinary approach - Recommend healthy lifestyle strategies and compensatory methods as needed documented as of this encounter Visit Diagnoses Not on filedocumented in this encounter Care Teams Employee Relation Manager Relationship Specialty Start Date End Date Kraig Ching MD [address] [facility] [address] [place] [address] PCP - General 07/10/16 Gautam Cope MD [address] [facility] [address] [place] [address] Medical Oncologist/Gravel Wheeler Medical Oncology 08/18/18 Tramaine Roe MD [address] [facility] [address] [place] [address] Referring Physician Urology 08/18/18 Sukhwinder Uribe MD [address] [facility] [address] [place] [address] Consulting Physician Urology 08/18/18 Shay Guillermo MD [address] [facility] [address] [place] [address] Referring Physician Urology 08/18/18 Marsha Landis, RN Registered Nurse 11/17/18 documented as of this encounter
--- OUTSIDE RECORDS SUMMARY | 2024-03-31 11:29 | XMS_ITS | Encounter Summary ---
Author Organization [facility] Address [address] [place] [address] Phone Care Team Providers Care Silk Worker Name Role Phone Kraig Ching MD Primary Care Provider Gautam Cope MD Unavailable Tramaine Roe MD Unavailable [phone] Sukhwinder Uribe MD Unavailable [phone] Shay Gulilermo MD Unavailable [phone] Marsha Landis RN Unavailable Unavailab le Encounter Details Date Type Department Care Team (Late st Contact Info) Description 12/08/2021 Orders Only [facility] Oncology [address] [place] [address] Muna Saleem RN Social History Tobacco Use [...] on file 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 Minimize further functional decline 2. Maximize quality of life 3. Control pain Strategies: - Activity/exercise program recommendation - Conservative stepwise pain medicine strategy with multi-disciplinary approach - Recommend healthy lifestyle strategies and compensatory methods as needed documented as of this encounter Visit Diagnoses Not on filedocumented in this encounter Care Teams Silk Worker Relationship Specialty Start Date End Date Kraig Ching MD [address] [place] [address] PCP - General 07/10/16 Gautam Cope MD [address] [place] [address] Medical Oncologist/Bookseamer Blindstitch Medical Oncology 08/18/18 Tramaine Roe MD [address] [place] [address] Referring Physician Urology 08/18/18 Sukhwinder Uribe MD [address] [place] [address] Consulting Physician Urology 08/18/18 Shay Guillermo MD [address] [place] [address] Referring Physician Urology 08/18/18 Marsha Landis, RN Registered Nurse 11/17/18 documented as of this encounter
--- OUTSIDE RECORDS SUMMARY | 2024-03-31 11:29 | XMS_ITS | Encounter Summary ---
Author Organization [facility] Medical [facility] Address [address] [facility] [address] [place] [address] Care Team Providers Care Blood Typer Name Role Phone Kraig Ching MD Primary Care Provider [phone] Gautam Cope MD Unavailable Tramaine Roe MD Unavailable [phone] Sukhwinder Uribe MD Unavailable [phone] Shay Guillermo MD Unavailable [phone] Marsha Landis RN Unavailable Unavailab le Reason for Visit * Reason Comments Covid Positive 11/24. Sx re turn, fever and weakness 12/07. 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 Thepatient visit started at 9:55am and ended [...] any applicable copayments. +COVID on [facility] at [facility]. Symptoms started on 11/17 with fatigue, low grade fever, weakness, decreased appetite. Had mild SOB. No chest pain or wheezing. No loss of taste or smell. They did call the office, but it he was outside of the window for [employer]. He also has CKD. Symptoms lasted about [...] for screening BMI 30.0-30.9,adult [facility]; Future Clau Sparks [...] to monitor diabetes and kidney status, etc. [facility] Chronic Pain Care Plan Chronic Care Management No change(03/23 1:47 PM GROCERY STOCK CLERK) No Ingrid Oden, SHEA Note: Problem: [...] 30.0-30.9,adult documented in this encounter Care Teams Blood Typer Relationship Specialty Start Date End Date Kraig Ching MD [address] [facility] [address] [place] [address] PCP - General 07/10/16 Gautam Cope MD [address] [facility] [address] [place] [address] Medical Oncologist/Control Equipment Electrician Medical Oncology 08/18/18 Tramaine Roe MD [address] [facility] [address] [place] [address] Referring Physician Urology 08/18/18 Sukhwinder Uribe MD [address] [facility] [address] [place] [address] Consulting Physician Urology 08/18/18 Shay Guillermo MD [address] [facility] [address] [place] [address] Referring Physician Urology 08/18/18 Marsha Landis, RN Registered Nurse 11/17/18 documented as of this encounter
--- OUTSIDE RECORDS SUMMARY | 2024-03-31 11:29 | XMS_ITS | Encounter Summary ---
Author Organization [facility] [employer] [facility] Address [address] [place] [address] Phone Care Team Providers Care Bushwalking Guide Name Role Phone Kraig Ching MD Primary Care Provider [phone] Gautam Cope MD Unavailable Tramaine Roe MD Unavailable [phone] Sukhwinder Uribe MD Unavailable [phone] Shay Guillermo MD Unavailable [phone] Marsha Landis RN Unavailable Unavailab le Reason for Visit * Reason Comments Injections Eligard * Episode Based Medications (Routine) - Authorized Specialty Diagnoses / Procedures Referred By Contac t Referred To Contact Oncology Diagnoses Prostate cancer (HCC) Procedures RI LEUPROLIDE ACETATE SUSPNSION Leuprolide Every 3 Months - Prostate Gautam Cope MD [address] [facility] [address] [place] [address] Phone: tel: fax: [facility] - Infusion [address] [facility] Floor 5 [place] [address] Referral ID Status Reason Start Date Expiration Date V isits Requested Visits Authorized [id number] Authorized 09/06/2018 07/11/2024 1 50 Encounter Details Date Type Department Care Team (Late st Contact Info) Description 09/16/2021 11:45 AM CDT Infusion [facility] Oncology [facility] Advanced Medicine 7th [place] [address] Prostate cancer (CMS/HCC) (HCC) (Primary Dx) Social [...] on file 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 ONCOLOGY David Wei is a 80 [...] Chronic Care Management No change(03/23 1:47 PM INTERNET DESIGNER) No Ingrid Oden, RN Note: Problem: [...] 10/2021 documented in this encounter Care Teams Bushwalking Guide Relationship Specialty Start Date End Date Kraig Ching MD [address] [facility] [address] [place] [address] PCP - General 07/10/16 Gautam Cope MD [address] [facility] [address] [place] [address] Medical Oncologist/Gallery Or Museum Attendant Medical Oncology 08/18/18 Tramaine Roe MD [address] [facility] [address] [place] [address] Referring Physician Urology 08/18/18 Sukhwinder Uribe MD [address] [facility] [address] [place] [address] Consulting Physician Urology 08/18/18 hSay Guillermo MD [address] [facility] [address] [place] [address] Referring Physician Urology 08/18/18 Marsha Landis, RN Registered Nurse 11/17/18 documented as of this encounter
--- OUTSIDE RECORDS SUMMARY | 2024-03-31 11:29 | XMS_ITS | Encounter Summary ---
Author Organization [facility] Address [address] [facility] [address] [place] [address] Care Team Providers Care Mosaic Layer Name Role Phone Kraig Ching MD Primary Care Provider Gautam Cope MD Unavailable Tramaine Roe MD Unavailable [phone] Sukhwinder Uribe MD Unavailable [phone] Shay Guillermo MD Unavailable [phone] Marsha Landis RN Unavailable Unavailab le Reason for Visit * Reason Onset Date Comments Fatigue 11/25/2021 Encounter Details Date Type Department Care Team (Late st Contact Info) Description 11/25/2021 Nurse Triage [facility] [address] [facility] [address] [place] [address] Kraig Ching MD [address] [facility] [address] [place] [address] Social History Tobacco Use Types [...] on file 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 # [phone] Routed to [facility] Reason for Disposition ? ? MODERATE weakness (i.e., interferes with work, school, normal activities) and persists > 3 days Protocols used: WEAKNESS (GENERALIZED) AND [id number] * Telephone Encounter - Bettye Buitrago RN - 11/25/2021 10:00 AM CDT Regarding: Tried and weak ----- Message from Comfort Salas sent at 11/25/2021 9:58 AM CDT ----- Symptom Based Call Chief Complaint: Tried and weak Did you review 911/Red Flag List?Yes Duration: Symptoms started on 11/17 Why was appointment not scheduled? Red flag Caller's Callback #: [phone] Additional Comments: Patient states that he started [...] Chronic Care Management No change(03/23 1:47 PM IS PROJECT MANAGER) No Ingrid Oden, SHEA Note: Problem: Chronic Pain Goals: 1. Minimize further functional decline 2. Maximize quality of life 3. Control pain Strategies: - Activity/exercise program recommendation - Conservative stepwise pain medicine strategy with multi-disciplinary approach - Recommend healthy lifestyle strategies and compensatory methods as needed documented as of this encounter Visit Diagnoses Not on filedocumented in this encounter Care Teams Mosaic Layer Relationship Specialty [place] [address] [place] [address] [address] [place] [address] PCP - General 07/10/16 Gautam Cope MD [address] [facility] [address] [place] [address] Medical Oncologist/Journeyman Power Plant Operator Medical Oncology 08/18/18 Tramaine Roe MD [address] [facility] [address] [place] [address] Referring Physician Urology 08/18/18 Suhkwinder Uribe MD [address] [facility] [address] [place] [address] Consulting Physician Urology 08/18/18 Shay Guillermo MD [address] [facility] [address] [place] [address] Referring Physician Urology 08/18/18 Marsha Landis, RN Registered Nurse 11/17/18 documented as of this encounter
--- OUTSIDE RECORDS SUMMARY | 2024-03-31 11:29 | XMS_ITS | Encounter Summary ---
Author Organization [facility] [employer] [facility] Address [address] [place] [address] Phone Care Team Providers Care Green Feed Attendant Name Role Phone Kraig Ching MD Primary Care Provider [phone] Gautam Cope MD Unavailable Tramaine Roe MD Unavailable [phone] Sukhwinder Uribe MD Unavailable [phone] Shay Guillermo MD Unavailable [phone] Marsha Landis RN Unavailable Unavailab le Reason for Visit * Renal Disease (Routine) - Closed Specialty Diagnoses / Procedures Referred By Contulices t Referred To Contact Nephrology Diagnoses GABRIELA (acute kidney injury) (HCC) Stage 3 chronic kidney disease, unspecified whether stage 3a or 3b CKD (HCC) Kraig Ching MD [address] [facility] [address] [place] [address] Phone: tel: fax: Lin Guerrero MD [address] [facility] [address] [place] [address] Phone: tel: fax: Referral ID Status Reason Start Date Expiration Date V isits Requested Visits Authorized [id number] Closed Specialty Services Required 10/03/2021 07/28/2023 25 Encounter Details Date Type Department Care Team (Late st Contact Info) Description 10/08/2021 9:50 AM CDT Office Visit [facility] Nephrology [address] 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, [address] [place] [phone] 08/15/2021 141 135 - 146 mmol/L Final Potassium, pl Date Value Ref Range Status 10/02/2021 4.5 3.5 - 5.3 mmol/L Final 09/16/2021 4.7 3.3 - 4.9 mmol/L Final Comment: Testing performed by: [facility], [address] [place] [phone] 08/15/2021 4.6 3.5 - 5.3 mmol/L Final CO2 Date Value Ref Range Status 10/02/2021 28 20 - 32 mmol/L Final 09/16/2021 30 22 - 32 mmol/L Final Comment: Testing performed by: [facility], [address] [place] [phone] 08/15/2021 30 20 - 32 mmol/L Final BUN Date Value Ref Range Status 10/02/2021 42 (H) 7 - 25 mg/dL Final 09/16/2021 35 (H) 8 - 25 mg/dL Final Comment: Testing performed by: [facility], [address] [place] [phone] 08/15/2021 35 (H) 7 - 25 mg/dL Final Creatinine Date Value Ref Range Status 10/02/2021 2.02 (H) 0.70 - 1.11 mg/dL Final Comment: For patients >49 years of age, the reference limit for Creatinine is approximately 13% higher for people identified as -Tristanian. 09/16/2021 1.60 (H) 0.80 - 1.30 mg/dL Final Comment: Testing performed by: [facility], [address] [place] [phone] 08/15/2021 1.99 (H) 0.70 - 1.11 mg/dL Final Comment: For patients >49 years of age, the reference limit for Creatinine is approximately 13% higher for people identified as -Tristanian. Albumin Date Value Ref Range Status 10/02/2021 3.9 3.6 - 5.1 g/dL Final 09/16/2021 4.2 3.5 - 5.0 g/dL Final Comment: Testing performed by: [facility], [address] [place] [phone] 06/24/2021 4.2 3.5 - 5.0 g/dL Final Comment: Testing performed by: [facility], [address] [place] [phone] Calcium Date Value Ref Range Status 10/02/2021 9.2 8.6 - 10.3 mg/dL Final 09/16/2021 9.4 8.5 - 10.3 mg/dL Final Comment: Testing performed by: [facility], [address] [place] [phone] 08/15/2021 8.9 8.6 - 10.3 mg/dL Final [...] by: [facility], [address] [place] [phone] 06/24/2021 12.9 (L) 13.8 - 17.2 g/dL Final Comment: Testing performed by: [facility], [address] [place] [phone] Protein/creatinine ratio Date Value Ref Range Status [...] with labs. Gabi Oliva MD Nephrology fellow [facility] Nephrology (Team Yolanda) Cosigned by Lin Guerrero [...] on: 03/26/2022 09:33 AM Modules accepted: Orders SOUP * Addendum Note - Meryl Barrientos RMA - 10/08/2021 9:50 AM CDTAddended by: MERYL BARRIENTOS on: 04/16/2022 10:08 AM Modules accepted: Orders SOUP documented in this encounter Plan of Treatment [...] monitor diabetes and kidney status, etc. [facility] Chronic Pain Care Plan Chronic Care Management No change(03/23 1:47 PM COOK SOUP) No Ingrid Oden RN Note: Problem: Chronic [...] U - INTERNAL MED-RENAL ?[address] ?[place] [address] 07/16/2022 11:0 0 AM CDT 07/16/2022 11:01 AM CDT Gabi Oliva MD LAB BLOOD ORDERABLES Final Resul t Performing Organization Address [facility] de Phone Number [facility] * COPY(IES) SENT TO: (07/16/2022 11:00 AM CDT) COPY(IES) SENT TO: [facility] Comment: ?WASH U INTERNAL MED RENAL ?[address] ?[place] [address] 07/16/2022 11:0 0 AM CDT 07/16/2022 11:01 AM CDT Gabi Oliva MD LAB BLOOD ORDERABLES Final Resul t Performing Organization Address [facility] de Phone Number [facility] * (ABNORMAL) Urinalysis [...] ORDERABLES Final Resul t Performing Organization Address City/State/[facility] Co de Phone Number [facility] [address] [place] [address] * (ABNORMAL) CBC with auto differential (07/16/2022 [...] BLOOD ORDERABLES Final Resul t ROSIO [place] [address] [place] [address] * PTH (07/16/2022 11:00 AM CDT) Parathyroid [...] Resul t Performing Organization Address [facility] de Phone Number [facility] [address] [place] [address] * Vitamin D 25 hydroxy (07/16/2022 11:00 AM CDT) Vitamin D 25-OH 39 30 - 100 ng/mL [facility] Comment: Vitamin D Status ? 25-OH Vitamin D: Deficiency: ?<20 ng/mL Insufficiency: ? 20 - 29 ng/mL Optimal: ? > or = 30 ng/mL For 25-OH Vitamin D testing on patients on D2-supplementation and patients for whom quantitation of D2 and D3 fractions is required, the QuestAssureD(TM) 25-OH VIT D, (D2,D3), LC/MS/MS is recommended: order code 15901 (patients >2yrs). See Note 1 Note 1 For additional information, please refer to http://education.Flinja/faq/BRX789 (This link is being provided for informational/ educational purposes only.) Blood 07/16/2022 11:0 0 AM CDT 07/16/2022 11:01 AM CDT us Gabi Oliva MD LAB BLOOD ORDERABLES Final Resul t Performing Organization Address [facility] Co de Phone Number [facility] [address] [address] [place] [address] * (ABNORMAL) Renal function panel (07/16/2022 11:00 [...] LAB BLOOD ORDERABLES Final Resul t [facility] [address] [address] * (ABNORMAL) POCT urinalysis dipstick (10/08/2021 11:25 AM CDT) Glucose, ur, POC Negative Negative MG/DL Bilirubin, ur, POC Negative Negative, Small, Moderate, Large Ketones, ur, POC Negative Negative Specific Bieber, POC 1.020 1.005 - 1.030 Blood, ur, POC Negative Negative pH, ur, POC 5.5 5.0 - 8.0 Protein, ur, POC 1+(A) Negative Urobilinogen, urine, POC 0.2 0.2 - 1.0 mg/dL Nitrite, ur, POC Negative Negative Leukocytes, ur, POC Negative Negative Lot Number [id number] Urine 10/08/2021 11:2 5 AM CDT Lin [...] 10/08/2021 documented in this encounter Care Teams Green Feed Attendant Relationship Specialty Start Date End Date Kraig Ching MD [address] [facility] [address] [place] [address] PCP - General 07/10/16 Gautam Cope MD [address] [facility] [address] [place] [address] Medical Oncologist/Chief Design Drafter Medical Oncology 08/18/18 Tramaine Roe MD [address] [facility] [address] [place] [address] Referring Physician Urology 08/18/18 Sukhwinder Uribe MD [address] [facility] [address] [place] [address] Consulting Physician Urology 08/18/18 Shay Guillermo MD [address] [facility] [address] [place] [address] Referring Physician Urology 08/18/18 Marsha Landis, RN Registered Nurse 11/17/18 documented as of this encounter
--- OUTSIDE RECORDS SUMMARY | 2024-03-31 11:29 | XMS_ITS | Encounter Summary ---
Author Organization [facility] Address [address] [place] [address] Phone Care Team Providers Care Special Needs Caregiver Name Role Phone Kraig Ching MD Primary Care Provider [phone] Gautam Cope MD Unavailable Tramaine Roe MD Unavailable [phone] Sukhwinder Uribe MD Unavailable [phone] Shay Guillermo MD Unavailable [phone] Marsha Landis RN Unavailable Unavailab le Encounter Details Date Type Department Care Team (Late st Contact Info) Description 12/05/2021 Orders Only [facility] Oncology [address] [facility] 7th [place] [address] [place] [address] Muna Saleem RN Prostate cancer [...] file 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 Minimize further functional decline 2. Maximize quality of life 3. Control pain Strategies: - Activity/exercise program recommendation - Conservative stepwise pain medicine strategy with multi-disciplinary approach - Recommend healthy lifestyle strategies and compensatory methods as needed documented as of this encounter Results * PSA diagnostic (03/10/2022 10:10 AM COMMERCIAL LOAN MANAGER) PSA-Total <0.02 <=6.20 ng/mL [facility] Comment: Interpretive Data ?AGE ? SEX ?REFERENCE INTERVAL 0 minutes-150 years ?Female ?None 0 minutes-49 years ? Male ?None ? 50-59 years ? Male ?0-3.90 ? 60-69 years ? Male ?0-5.40 ? 70-79 years ? Male ?0-6.20 ? 80-150 years ?Male ?0-6.20 The [employer] PSA Total assay procedure was used. Results from different manufacturers or methods may not be comparable. Serial testing should be performed using the same method. Current interpretive data last revised 21. Blood 03/10/2022 10:1 0 AM COMMERCIAL LOAN MANAGER 03/10/2022 10:26 AM COMMERCIAL LOAN MANAGER us Gautam Cope MD LAB BLOOD ORDERABLES Final Resul t [facility] [place] [address] * (ABNORMAL) Comprehensive metabolic panel (03/10/2022 10:10 AM COMMERCIAL LOAN MANAGER) Sodium 138 135 - 145 mmol/L [facility] Comment:Testing performed by : [facility], [address] [place] [phone] Potassium, pl 4.4 3.3 - 4.9 mmol/L [facility] Comment:Testing performed by : [facility], [address] [place] [phone] Chloride 103 97 - 110 mmol/L [facility] Comment:Testing performed by : [facility], [address] [place] [phone] CO2 28 22 - 32 mmol/L [facility] Comment:Testing performed by : [facility], [address] [place] [phone] Anion gap 8 2 - 15 mmol/L [facility] Comment:Testing performed by : [facility], [address] [place] [phone] BUN 42(H) 8 - 25 mg/dL [facility] Comment:Testing performed by : [facility], [address] [place] [phone] Creatinine 2.05(H) 0.80 - 1.30 mg/dL [facility] Comment:Testing performed by : [facility], [address] [place] [phone] Glucose 101 70 - 199 mg/dL [facility] Comment: Interpretive Data Fasting glucose >/= [...] was last revised 2017. Testing performed by: [facility], [address] [place] [phone] Calcium 9.1 8.5 - 10.3 mg/dL [facility] Comment:Testing performed by : [facility], [address] [place] [phone] Bilirubin, total 0.4 0.1 - 1.2 mg/dL [facility] Comment:Testing performed by : [facility], [address] [place] [phone] Protein, pl 6.6 6.5 - 8.5 g/dL [facility] Comment:Testing performed by : [facility], [address] [place] [phone] Albumin 4.0 3.5 - 5.0 g/dL [facility] Comment:Testing performed by : [facility], [address] [place] [phone] Alk phos 114 40 - 130 Units/L [facility] Comment:Testing performed by : [facility], [address] [place] [phone] ALT 11 7 - 55 Units/L [facility] Comment:Testing performed by : [facility], [address] [place] [phone] AST 11 10 - 50 Units/L [facility] Comment:Testing performed by : [facility], [address] [place] [phone] Blood 03/10/2022 10:1 0 AM COMMERCIAL LOAN MANAGER 03/10/2022 10:13 AM COMMERCIAL LOAN MANAGER us Gautam Cope MD LAB BLOOD ORDERABLES Final Resul t [facility] [address] [facility] [place] [address] * (ABNORMAL) CBC with auto differential (03/10/2022 10:10 AM COMMERCIAL LOAN MANAGER) WBC 11.2(H) 3.8 - 9.8 K/cumm [facility] Comment:Testing performed by : [facility], [address] [place] [phone] Hgb 12.2(L) 13.8 - 17.2 g/dL [facility] Comment:Testing performed by : [facility], [address] [place], [place] [phone] Hct 37.2(L) 40.7 - 50.3 % [facility] Comment:Testing performed by : [facility], [address] [place] [address] Plt 328 140 - 440 K/cumm [facility] Comment:Testing performed by : [facility], [address] [place] [address] MPV 7.5 6.8 - 10.4 fL [facility] Comment:Testing performed by : [facility], [address] [place] [address] RBC 4.20(L) 4.50 - 5.70 M/cumm [facility] Comment:Testing performed by : [facility], [address] [place] [address] MCV 88.5 80.0 - 97.6 fL [facility] Comment:Testing performed by : [facility], [address] [place], [place] [phone] MCH 29.1 26.7 - 33.7 pg [facility] Comment:Testing performed by : [place] [address] MCHC 32.9 32.7 - 35.5 g/dL [facility] Comment:Testing performed by : [place] [address] RDW CV 14.7(H) 11.8 - 14.6 % [facility] Comment:Testing performed by : [facility], [address] [place], [place] [phone] NRBC abs 0.00 0.00 - 0.01 K/cumm [facility] Comment:Testing performed by : [place] [address] Blood 03/10/2022 10:1 0 AM COMMERCIAL LOAN MANAGER 03/10/2022 10:13 AM COMMERCIAL LOAN MANAGER us Gautam Cope MD LAB BLOOD ORDERABLES Final Resul t [facility] Department [place] [address] * Lactate dehydrogenase (LD) (03/10/2022 10:10 AM COMMERCIAL LOAN MANAGER) Lactate dehydrogenase (LDH) 166 100 - 250 Units/L [facility] Comment:Testing performed by : [facility], [address] [facility] [phone] Blood 03/10/2022 10:1 0 AM COMMERCIAL LOAN MANAGER 03/10/2022 10:13 AM COMMERCIAL LOAN MANAGER us Gautam Cope MD LAB BLOOD ORDERABLES Final Resul t [facility] Department [place] [address] documented in this encounter Visit Diagnoses Diagnosis Prostate cancer (HCC)- Primary Malignant neoplasm of prostate documented in this encounter Orders Appointment Requests Count Last Ordered Date Fi rst Ordered Date ONCBCN CLINIC APPOINTMENT REQUEST 1 022 ONCBCN INJECTION APPOINTMENT REQUEST 1 02/11 ONCBCN LAB APPOINTMENT 1 03/10/2022 documented in this encounter Care Teams Special Needs Caregiver Relationship Specialty Start Date End Date Kraig Ching MD [address] [facility] [address] [place] [address] PCP - General 07/10/16 Gautam Cope MD [address] [facility] [address] [place] [address] Medical Oncologist/Uptwist Spinner Medical Oncology 08/18/18 Tramaine Roe MD [address] [facility] [address] [place] [address] Referring Physician Urology 08/18/18 Sukhwinder Uribe MD [address] [facility] [address] [place] [address] Consulting Physician Urology 08/18/18 Shay Guillermo MD [address] [address] Referring Physician Urology 08/18/18 Marsha Landis, RN Registered Nurse 11/17/18 documented as of this encounter
--- OUTSIDE RECORDS SUMMARY | 2024-03-31 11:29 | XMS_ITS | Encounter Summary ---
Author Organization [facility] Address [address] [place] [address] Care Team Providers Care Plant Care Worker Name Role Phone Kraig Ching MD Primary Care Provider [phone] Gautam Cope MD Unavailable Tramaine Roe MD Unavailable [phone] Sukhwinder Uribe MD Unavailable [phone] Shay Guillermo MD Unavailable [phone] Marsha Landis RN Unavailable Unavailab le Reason for Referral * MRI/CAT/PET Scan (Routine) - Closed Specialty Diagnoses / Procedures Referred By Saleem narvaez Referred To Contact Radiology Diagnoses Prostate cancer (HCC) Procedures CT chest without contrast Gautam Cope MD [address] [address] Phone: tel: fax: [address] [address] Referral ID Status Reason Start Date Expiration Date Visits Re quested Visits Authorized [id number] Closed 06/21/2021 07/21/2022 1 1 Reason for Visit * MRI/CAT/PET Scan (Routine) - Closed Specialty Diagnoses / Procedures Referred By Saleem narvaez Referred To Contact Radiology Diagnoses Prostate cancer (HCC) Procedures CT chest without contrast Gautam Cope MD [id number] [place] [address] Phone: tel: fax: [facility] [address] [facility] [place] [address] Referral ID Status Reason Start Date Expiration Date Visits Re quested Visits Authorized [id number] Closed 06/21/2021 07/21/2022 1 1 Encounter Details Date Type Department Care Team (Latest Contact Info) Description 09/10/2021 10:18 AM CDT - 09/10/2021 11:59 PM CDT Hospital Encounter [facility] [address] [place] [address] Gautam Cope MD [address] [facility] [address] [place] [address] Prostate cancer (CMS/HCC) (HCC) Discharge [...] on file 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 [facility] Chronic Pain Care Plan Chronic Care Management No change(03/23 1:47 PM VETERANS REHABILITATION COUNSELOR) No Ingrid Oden, RN Note: Problem: [...] prostate documented in this encounter Care Teams Plant Care Worker Relationship Specialty Start Date End Date Kraig Ching MD [address] [employer] [address] [place] [address] PCP - General 07/10/16 Gautam Cope MD [address] [place] [address] Medical Oncologist/Pharmacy Retail Support Specialist Medical Oncology 08/18/18 Tramaine Roe MD [address] [facility] [address] [place] [address] Referring Physician Urology 08/18/18 Sukhwinder Uribe MD [address] [facility] [address] [place] [address] Consulting Physician Urology 08/18/18 Shay Guillermo MD [address] [facility] [address] [place] [address] Referring Physician Urology 08/18/18 Marsha Landis, RN Registered Nurse 11/17/18 documented as of this encounter
--- OUTSIDE RECORDS SUMMARY | 2024-03-31 11:29 | XMS_ITS | Encounter Summary ---
Author Organization [facility] Address [address] [place] [address] Phone Care Team Providers Care Cashier Courtesy Booth Name Role Phone Kraig Ching MD Primary Care Provider [phone] Gautam Cope MD Unavailable Tramaine Roe MD Unavailable [phone] Sukhwinder Uribe MD Unavailable [phone] Shay Guillermo MD Unavailable [phone] Marsha Landis RN Unavailable Unavailab le Encounter Details Date Type Department Care Team (Late st Contact Info) Description 12/09/2021 Telephone [facility] Oncology [facility] Advanced Medicine 7th [place] [address] [place] [address] Muna Saleem RN Social History [...] on file 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 Minimize further functional decline 2. Maximize quality of life 3. Control pain Strategies: - Activity/exercise program recommendation - Conservative stepwise pain medicine strategy with multi-disciplinary approach - Recommend healthy lifestyle strategies and compensatory methods as needed documented as of this encounter Visit Diagnoses Not on filedocumented in this encounter Care Teams Cashier Courtesy Booth Relationship Specialty Start Date End Date Kragi Ching MD [address] [place] [address] PCP - General 07/10/16 Gautam Cope MD [address] [place] [address] Medical Oncologist/Donor Floor Technician Medical Oncology 08/18/18 Tramaine Roe MD [address] [place] [address] Referring Physician Urology 08/18/18 Sukhwinder Uribe MD [address] [place] [address] Consulting Physician Urology 08/18/18 Shay Guillermo MD [address] [place] [address] Referring Physician Urology 08/18/18 Marsha Landis, RN Registered Nurse 11/17/18 documented as of this encounter
--- OUTSIDE RECORDS SUMMARY | 2024-03-31 11:29 | XMS_ITS | Encounter Summary ---
Author Organization [facility] Address [address] [facility] [address] [place] [address] Care Team Providers Care Special Education Kindergarten Teacher Name Role Phone Kraig Ching MD Primary Care Provider [phone] Gautam Cope MD Unavailable Tramaine Roe MD Unavailable [phone] Sukhwinder Uribe MD Unavailable [phone] Shay Guillermo MD Unavailable [phone] Marsha Landis RN Unavailable Unavailab le Reason for Visit * Reason Onset Date Comments Covid-19 Home Monitoring 12/13/2021 Daily C all Encounter Details Date Type Department Care Team (Late st Contact Info) Description 12/13/2021 Telephone [facility] Accountable Care Organization [address] [place] [id number] Jaelyn Blakely Covid-19 Home Monitoring (Daily Call) [...] file 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 Minimize further functional decline 2. Maximize quality of life 3. Control pain Strategies: - Activity/exercise program recommendation - Conservative stepwise pain medicine strategy with multi-disciplinary approach - Recommend healthy lifestyle strategies and compensatory methods as needed documented as of this encounter Visit Diagnoses Not on filedocumented in this encounter Care Teams Special Education Kindergarten Teacher Relationship Specialty Start Date End Date Kraig Ching MD [address] [place] [address] PCP - General 07/10/16 Gautam Cope MD [address] [place] [address] Medical Oncologist/Synthetic Chemist Medical Oncology 08/18/18 Tramaine Roe MD [address] [place] [address] Referring Physician Urology 08/18/18 Sukhwinder Uribe MD [address] [facility] [address] [place] [address] Consulting Physician Urology 08/18/18 Shay Guillermo MD [address] [facility] [address] [place] [address] Referring Physician Urology 08/18/18 Marsha Landis, RN Registered Nurse 11/17/18 documented as of this encounter
--- OUTSIDE RECORDS SUMMARY | 2024-03-31 11:29 | XMS_ITS | Encounter Summary ---
Author Organization [facility] Address [address] [place] [address] Phone Care Team Providers Care Certified Veterinary Technician Name Role Phone Kraig Ching MD Primary Care Provider [phone] Gautam Cope MD Unavailable Tramaine Roe MD Unavailable [phone] Sukhwinder Uribe MD Unavailable [phone] Shay Guillermo MD Unavailable [phone] Marsha Landis RN Unavailable Unavailab le Encounter Details Date Type Department Care Team (Late st Contact Info) Description 12/08/2021 Documentation [facility] Oncology [address] [place] [address] Muna Saleem RN Social History Tobacco Use [...] on file 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 [facility] Chronic Pain Care Plan Chronic Care Management No change(03/23 1:47 PM MEASUREMENT TECHNICIAN) No Ingrid Oden, SHEA Note: Problem: Chronic Pain Goals: 1. Minimize further functional decline 2. Maximize quality of life 3. Control pain Strategies: - Activity/exercise program recommendation - Conservative stepwise pain medicine strategy with multi-disciplinary approach - Recommend healthy lifestyle strategies and compensatory methods as needed documented as of this encounter Visit Diagnoses Not on filedocumented in this encounter Care Teams Certified Veterinary Technician Relationship Specialty Start Date End Date Kraig Ching MD [address] [facility] [address] [place] [address] PCP - General 07/10/16 Gautam Cope MD [address] [facility] [address] [place] [address] Medical Oncologist/Manufacturing Helper Medical Oncology 08/18/18 Tramaine Roe MD [address] [facility] [address] [place] [address] Referring Physician Urology 08/18/18 Sukhwinder Uribe MD [address] [facility] [address] [place] [address] Consulting Physician Urology 08/18/18 Shay Guillermo MD [address] [facility] [address] [place] [address] Referring Physician Urology 08/18/18 Marsha Landis RN Registered Nurse 11/17/18 documented as of this encounter
--- OUTSIDE RECORDS SUMMARY | 2024-03-31 11:29 | XMS_ITS | Encounter Summary ---
Author Organization [facility] Address [address] [place] [address] Phone Care Team Providers Care Video Games Storywriter Name Role Phone Kraig Ching MD Primary Care Provider [phone] Gautam Cope MD Unavailable Tramaine Roe MD Unavailable [phone] Sukhwinder Uribe MD Unavailable Shay Guillermo MD Unavailable [phone] Marsha Landis RN Unavailable Unavailab le Encounter Details Date Type Department Care Team (Late st Contact Info) Description 12/12/2021 Orders Only 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 Author ZAK General Goal - Patient is knowledgeable about condition when worsening and how to respond ACO Care Management No change(09/06 4:37 PM CDT) Ilene Yadva RN Note: Problem: Knowledge deficit related to [...] Care Management No change(03/23 1:47 PM FOOD AND NUTRITION SERVICES SUPERVISOR) No Ingrid Oden, RN Note: Problem: [...] documented in this encounter Care Teams Video Games Storywriter Relationship Specialty Start Date End Date Kraig Ching MD [address] [place] [address] PCP - General 07/10/16 Gautam Cope MD [address] [place] [address] Medical Oncologist/Blood Bank Custodian Medical Oncology 08/18/18 Tramaine Roe MD [address] [place] [address] Referring Physician Urology 08/18/18 Sukhwinder Uribe MD [address] [place] [address] Consulting Physician Urology 08/18/18 Shay Guillermo MD [address] [place] [address] Referring Physician Urology 08/18/18 Marsha Landis, RN Registered Nurse 11/17/18 documented as of this encounter
--- OUTSIDE RECORDS SUMMARY | 2024-03-31 11:29 | XMS_ITS | Encounter Summary ---
Author Organization [facility] Address [address] [place] [address] Care Team Providers Care Metal Bending Machine Operator Name Role Phone Kraig Ching MD Primary Care Provider [phone] Gautam Cope MD Unavailable Tramaine Roe MD Unavailable [phone] Sukhwinder Uribe MD Unavailable [phone] Shay Guillermo MD Unavailable [phone] Marsha Landis RN Unavailable Unavailab le Encounter Details Date Type Department Care Team (Latest Contact Info) Description 12/09/2021 8:50 AM CDT - 12/09/2021 11:59 PM CDT Hospital Encounter [facility] [address] [place] [address] Discharge Disposition: Discharge to home or self [...] file 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 Minimize further functional decline 2. Maximize quality of life 3. Control pain Strategies: - Activity/exercise program recommendation - Conservative stepwise pain medicine strategy with multi-disciplinary approach - Recommend healthy lifestyle strategies and compensatory methods as needed documented as of this encounter Visit Diagnoses Not on filedocumented in this encounter Care Teams Metal Bending Machine Operator Relationship Specialty Start Date End Date Kraig Ching MD [address] [facility] [address] [place] [address] PCP - General 07/10/16 Gautam Cope MD [address] [facility] [address] [place] [address] Medical Oncologist/Artificial Plastic Eye Maker Medical Oncology 08/18/18 Tramaine Roe MD [address] [facility] [address] [place] [address] Referring Physician Urology 08/18/18 Sukhwinder Uribe MD [address] [facility] [address] [place] [address] Consulting Physician Urology 08/18/18 Shay Guillermo MD [address] [facility] [address] [place] [address] Referring Physician Urology 08/18/18 Marsha Landis, RN Registered Nurse 11/17/18 documented as of this encounter
--- OUTSIDE RECORDS SUMMARY | 2024-03-31 11:29 | XMS_ITS | Encounter Summary ---
Author Organization [facility] Address [address] [place] [address] Phone Care Team Providers Care House Fellow Name Role Phone Kraig Ching MD Primary Care Provider [phone] Gautam Cope MD Unavailable Tramaine Roe MD Unavailable [phone] Sukhwinder Uribe MD Unavailable [phone] Shay Guillermo MD Unavailable [phone] Marsha Landis RN Unavailable Unavailab le Encounter Details Date Type Department Care Team (Late st Contact Info) Description 09/12/2021 Orders Only [facility] Oncology [address] [facility] Advanced Medicine 7th [place] [address] [place] [address] Muna Saleem RN Prostate cancer [...] on file 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 80-150 years ?Male ?0-6.20 The [employer] PSA Total assay procedure was used. Results from different manufacturers or methods may not be comparable. Serial testing should be performed using the same method. Current interpretive data last revised 21. Blood 12/16/2021 7:40 AM CDT 12/16/2021 8:07 AM CDT us Gautam Cope MD LAB BLOOD ORDERABLES Final Resul t [facility] [place] [address] * (ABNORMAL) Comprehensive metabolic panel (12/16/2021 7:40 AM CDT) Sodium 141 135 - 145 mmol/L [facility] Comment:Testing performed by : [facility], [address] [place] [phone] Potassium, pl 4.5 3.3 - 4.9 mmol/L [facility] Comment:Testing performed by : [facility], [address] [place] [phone] Chloride 104 97 - 110 mmol/L [facility] Comment:Testing performed by : [facility], [address] [place] [phone] CO2 30 22 - 32 mmol/L [facility] Comment:Testing performed by : [facility], [address] [place] [phone] Anion gap 7 2 - 15 mmol/L [facility] Comment:Testing performed by : [facility], [address] [place] [phone] BUN 42(H) 8 - 25 mg/dL [facility] Comment:Testing performed by : [facility], [address] [place] [phone] Creatinine 2.05(H) 0.80 - 1.30 mg/dL [facility] Comment:Testing performed by : [facility], [address] [place] [phone] Glucose 109 70 - 199 mg/dL [facility] Comment: Interpretive Data Fasting glucose >/= 126 [...] was last revised 2017. Testing performed by: [facility], [address] [place] [phone] Calcium 9.3 8.5 - 10.3 mg/dL [facility] Comment:Testing performed by : [facility], [address] [place] [phone] Bilirubin, total 0.3 0.1 - 1.2 mg/dL [facility] Comment:Testing performed by : [facility], [address] [place] [phone] Protein, pl 6.8 6.5 - 8.5 g/dL [facility] Comment:Testing performed by : [facility], [address] [place] [phone] Albumin 4.3 3.5 - 5.0 g/dL [facility] Comment:Testing performed by : [facility], [address] [place] [phone] Alk phos 114 40 - 130 Units/L [facility] Comment:Testing performed by : [facility], [address] [place] [phone] ALT 9 7 - 55 Units/L [facility] Comment:Testing performed by : [facility], [address] [place] [phone] AST 12 10 - 50 Units/L [facility] Comment:Testing performed by : [facility], [address] [place] [phone] Blood 12/16/2021 7:40 AM CDT 12/16/2021 7:41 AM CDT us Gautam Cope MD LAB BLOOD ORDERABLES Final Resul t [facility] [place] [address] * (ABNORMAL) CBC with auto differential (12/16/2021 7:40 AM CDT) WBC 12.1(H) 3.8 - 9.8 K/cumm [facility] Comment:Testing performed by : [facility], [address] [place] [phone] Hgb 12.5(L) 13.8 - 17.2 g/dL [facility] Comment:Testing performed by : [facility], [address] [place], [place] [phone] Hct 37.6(L) 40.7 - 50.3 % [facility] Comment:Testing performed by : [facility], [address] [place], [place] [phone] Plt 332 140 - 440 K/cumm [facility] Comment:Testing performed by : [facility], [address] [place], [place] [phone] MPV 7.6 6.8 - 10.4 fL [facility] Comment:Testing performed by : [place] [id number] RBC 4.27(L) 4.50 - 5.70 M/cumm [facility] Comment:Testing performed by : [place] [phone] MCV 88.0 80.0 - 97.6 fL [facility] Comment:Testing performed by : [facility], [address] [place], [place] [phone] MCH 29.3 26.7 - 33.7 pg [facility] Comment:Testing performed by : [place] [phone] MCHC 33.3 32.7 - 35.5 g/dL [facility] Comment:Testing performed by : [place] [id number] RDW CV 14.3 11.8 - 14.6 % [facility] Comment:Testing performed by : [facility], [address] [place], [place] [phone] NRBC abs 0.01 0.00 - 0.01 K/cumm [facility] Comment:Testing performed by : [place] [id number] Blood 12/16/2021 7:40 AM CDT 12/16/2021 7:41 AM CDT us Gautam Cope MD LAB BLOOD ORDERABLES Final Resul t [facility] [place] [address] * Lactate dehydrogenase (LD) (12/16/2021 7:40 AM CDT) Lactate dehydrogenase (LDH) 168 100 - 250 Units/L [facility] Comment:Testing performed by : [facility], [address] [facility] [phone] Blood 12/16/2021 7:40 AM CDT 12/16/2021 7:41 AM CDT us Gautma Cope MD LAB BLOOD ORDERABLES Final Resul t Performing Organization Address [facility] Co de Phone Number [facility] [place] [address] documented in this encounter Visit Diagnoses Diagnosis Prostate cancer (HCC)- Primary Malignant neoplasm of prostate documented in this encounter Orders Appointment Requests Count Last Ordered Date Fi rst Ordered Date ONCBCN CLINIC APPOINTMENT REQUEST 1 022 ONCBCN INJECTION APPOINTMENT REQUEST 1 09/2021 ONCBCN LAB APPOINTMENT 1 12/16/2021 documented in this encounter Care Teams House Fellow Relationship Specialty Start Date End Date Kraig Ching MD [address] [facility] [address] [place] [address] PCP - General 07/10/16 Gautam Cope MD [address] [facility] [address] [place] [address] Medical Oncologist/Bag Turner Medical Oncology 08/18/18 Tramaine Roe MD [address] [facility] [address] [place] [address] Referring Physician Urology 08/18/18 Sukhwinder Uribe MD [address] [facility] [address] [place] [address] Consulting Physician Urology 08/18/18 Shay Guillermo MD [address] [facility] [address] [place] [address] Referring Physician Urology 08/18/18 Marsha Landis RN Registered Nurse 11/17/18 documented as of this encounter
--- OUTSIDE RECORDS SUMMARY | 2024-03-31 11:29 | XMS_ITS | Encounter Summary ---
Author Organization [facility] Address [address] [place] [address] Phone Care Team Providers Care Billing Services Manager Name Role Phone Kraig Ching MD Primary Care Provider [phone] Gautam Cope MD Unavailable Tramaine Roe MD Unavailable [phone] Sukhwinder Uribe MD Unavailable [phone] Shay Guillermo MD Unavailable [phone] Marsha Landis RN Unavailable Unavailab le Encounter Details Date Type Department Care Team (Late st Contact Info) Description 10/28/2021 Telephone [facility] Nephrology [address] [facility] Advanced Medicine 5th [place] [address] [place] [address] Comfort Barrios RMA Social History [...] on file 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 Gender Identity Not on file Sexual Orientation Not on file documented as of this encounter Ordered Prescriptions Prescription Sig Dispense Quantity Refills Last Filled Start Date End Date lisinopriL (PRINIVIL,ZESTRIL) 20 mg tablet Take 1 tablet (20 mg total) by mouth daily 30 tablet 5 10/31/2021 05/06/2022 documented in this encounter Miscellaneous Notes * Telephone Encounter - Comfort Barrios [facility] - 11/18/2021 10:41 AM CDT Called to [...] pt and/or get him in for [facility] [employer] drive thru testing today or tomorrow when [...] made a final call and he did pick remover this morning. I asked him to read [...] yet and he has not read my [employer] msg. Will reach out again this week. [...] to monitor diabetes and kidney status, etc. [facility] Chronic Pain Care Plan Chronic Care Management No change(03/23 1:47 PM CROSS TIE CUTTER) No Ingrid Oden RN Note: Problem: Chronic [...] documented as of this encounter Care Teams Billing Services Manager Relationship Specialty Start Date End Date Kraig Ching MD [address] [place] [address] PCP - General 07/10/16 Gautam Cope MD [address] [facility] [address] [place] [address] Medical Oncologist/Reconciliation Coordinator Medical Oncology 08/18/18 Tramaine Roe MD [address] [place] [address] Referring Physician Urology 08/18/18 Sukhwinder Uribe MD [address] [facility] [address] [place] [address] Consulting Physician Urology 08/18/18 Shay Guillermo MD [address] [facility] [address] [place] [address] Referring Physician Urology 08/18/18 Marsha Landis, RN Registered Nurse 11/17/18 documented as of this encounter
--- OUTSIDE RECORDS SUMMARY | 2024-03-31 11:29 | XMS_ITS | Encounter Summary ---
Author Organization [facility] Address [address] [place] [address] Phone Care Team Providers Care Recreational Director Name Role Phone Kraig Ching MD Primary Care Provider [phone] Gautam Cope MD Unavailable Tramaine Roe MD Unavailable [phone] Sukhwinder Uribe MD Unavailable [phone] Shay Guillermo MD Unavailable [phone] Marsha Landis RN Unavailable Unavailab le Encounter Details Date Type Department Care Team (Late st Contact Info) Description 12/09/2021 Orders Only [facility] Oncology [address] [facility] Advanced Medicine 7th [place] [address] [place] [address] Muna Saleem RN Social History Tobacco Use [...] on file 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 Minimize further functional decline 2. Maximize quality of life 3. Control pain Strategies: - Activity/exercise program recommendation - Conservative stepwise pain medicine strategy with multi-disciplinary approach - Recommend healthy lifestyle strategies and compensatory methods as needed documented as of this encounter Visit Diagnoses Not on filedocumented in this encounter Care Teams Recreational Director Relationship Specialty Start Date End Date Kraig Ching MD [address] [place] [address] PCP - General 07/10/16 Gautam Cope MD [address] [place] [address] Medical Oncologist/Vacuum System Tester Medical Oncology 08/18/18 Tramaine Roe MD [address] [place] [address] Referring Physician Urology 08/18/18 Sukhwinder Uribe MD [address] [place] [address] Consulting Physician Urology 08/18/18 Shay Guillermo MD [address] [place] [address] Referring Physician Urology 08/18/18 Marsha Landis, RN Registered Nurse 11/17/18 documented as of this encounter
--- OUTSIDE RECORDS SUMMARY | 2024-03-31 11:29 | XMS_ITS | Encounter Summary ---
Author Organization [facility] Address [address] [facility] [place] [address] [place] [address] Care Team Providers Care Hand Cigar Making Supervisor Name Role Phone Kraig Ching MD Primary Care Provider [phone] Gautam Cope MD Unavailable Tramaine Roe MD Unavailable [phone] Sukhwinder Uribe MD Unavailable Shay Guillermo MD Unavailable [phone] Marsha Landis RN Unavailable Unavailab le Reason for Visit * Reason Onset Date Comments Covid-19 Home Monitoring 12/15/2021 Encounter Details Date Type Department Care Team (Late st Contact Info) Description 12/15/2021 Telephone [facility] Accountable Care Organization [address] [place] [address] Shweta Turcios [address] [facility] [address] [place] [address] Covid-19 Home Monitoring Social History Tobacco Use [...] on file 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 [facility] Chronic Pain Care Plan Chronic Care Management No change(03/23 1:47 PM HANDKERCHIEF CUTTER) No Ingrid Oden RN Note: Problem: Chronic Pain Goals: 1. Minimize further functional decline 2. Maximize quality of life 3. Control pain Strategies: - Activity/exercise program recommendation - Conservative stepwise pain medicine strategy with multi-disciplinary approach - Recommend healthy lifestyle strategies and compensatory methods as needed documented as of this encounter Visit Diagnoses Not on filedocumented in this encounter Care Teams Hand Cigar Making Supervisor Relationship Specialty Start Date End Date Kraig Ching MD [address] [facility] [address] [place] [address] PCP - General 07/10/16 Gautam Cope MD [address] [facility] [address] [place] [address] Medical Oncologist/Digital Watch Assembler Medical Oncology 08/18/18 Tramaine Roe MD [address] [facility] [address] [place] [address] Referring Physician Urology 08/18/18 Sukhwinder Uribe MD [address] [facility] [address] [place] [address] Consulting Physician Urology 08/18/18 Shay Guillermo MD [address] [facility] [address] [place] [address] Referring Physician Urology 08/18/18 Marsha Landis, RN Registered Nurse 11/17/18 documented as of this encounter
--- OUTSIDE RECORDS SUMMARY | 2024-03-31 11:29 | XMS_ITS | Encounter Summary ---
Author Organization [facility] Address [address] [facility] [address] [place] [address] Care Team Providers Care Radioactivity Technician Name Role Phone Kraig Ching MD Primary Care Provider [phone] Gautam Cope MD Unavailable Tramaine Roe MD Unavailable [phone] Sukhwinder Uribe MD Unavailable Shay Guillermo MD Unavailable [phone] Marsha Landis RN Unavailable Unavailab le Reason for Visit * Reason Onset Date Comments Covid-19 Home Monitoring 12/14/2021 Encounter Details Date Type Department Care Team (Late st Contact Info) Description 12/14/2021 Telephone [facility] Accountable Care Organization [address] [place] [address] Shweta Turcios [address] [facility] [address] [place] [address] Covid-19 Home Monitoring Social History Tobacco Use [...] on file 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 [facility] Chronic Pain Care Plan Chronic Care Management No change(03/23 1:47 PM STEP FINISHER) No Ingrid Oden, SHEA Note: Problem: Chronic Pain Goals: 1. Minimize further functional decline 2. Maximize quality of life 3. Control pain Strategies: - Activity/exercise program recommendation - Conservative stepwise pain medicine strategy with multi-disciplinary approach - Recommend healthy lifestyle strategies and compensatory methods as needed documented as of this encounter Visit Diagnoses Not on filedocumented in this encounter Care Teams Radioactivity Technician Relationship Specialty Start Date End Date Kraig Ching MD [address] [facility] [address] [place] [address] PCP - General 07/10/16 Gautam Cope MD [address] [facility] [address] [place] [address] Medical Oncologist/Data Entry Manager Medical Oncology 08/18/18 Tramaine Roe MD [address] [facility] [address] [place] [address] Referring Physician Urology 08/18/18 Sukhwinder Uribe MD [address] [facility] [address] [place] [address] Consulting Physician Urology 08/18/18 Shay Guillermo MD [address] [facility] [address] [place] [address] Referring Physician Urology 08/18/18 Marsha Landis, RN Registered Nurse 11/17/18 documented as of this encounter
--- OUTSIDE RECORDS SUMMARY | 2024-03-31 11:29 | XMS_ITS | Encounter Summary ---
Author Organization [facility] Address [address] [place] [address] Phone Care Team Providers Care Raw Finish Mill Operator Name Role Phone Kraig Ching MD Primary Care Provider [phone] Gautam Cope MD Unavailable Tramaine Roe MD Unavailable [phone] Sukhwinder Uribe MD Unavailable Shay Guillermo MD Unavailable [phone] Marsha Landis RN Unavailable Unavailab le Encounter Details Date Type Department Care Team (Latest Contact Info) Description 08/18/[address] 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 [facility] Chronic Pain Care Plan Chronic Care Management No change(03/23 1:47 PM TOWER HELPER) No Ingrid Oden, SHEA Note: Problem: [...] ?[address] ?[address] ?[place] [address] 10/02/2021 2:27 PM CDT 10/02/2021 2:29 PM CDT Narrative [facility] - 10/03/2021 7:39 AM CDT FASTING:NO FASTING: NO us Lin Guerrero MD LAB BLOOD ORDERABLES Final Resul t [facility] * COPY(IES) SENT TO: (10/02/2021 2:27 PM CDT) COPY(IES) SENT TO: [facility] Comment: ?[facility]NAL ?[address] ?[address] ?[place] [address] 10/02/2021 2:27 PM CDT 10/02/2021 2:29 PM CDT Narrative [facility] - 10/03/2021 7:39 AM CDT FASTING:NO FASTING: NO us Lin Guerrero MD LAB BLOOD ORDERABLES Final Resul t Performing Organization Address City/[facility]/ZIP Co de Phone Number [facility] * (ABNORMAL) [...] approximately 13% higher for people identified as -Prydeinig. eGFR NON-AFR. CAMEROONIAN 30(L) > OR = 60 mL/min/1. 73m2 [...] BLOOD ORDERABLES Final Resul t [facility] [address] [address] * (ABNORMAL) CBC with auto differential (10/02/2021 2:27 PM CDT) Pathologist [facility] WBC 10.0 3.8 - 10.8 Thousand/u L [...] BLOOD ORDERABLES Final Resul t [facility] [address] [address] * (ABNORMAL) Vitamin D 25 hydroxy (10/02/2021 2:27 PM CDT) Pathologist [facility] Vitamin D 25-OH 26(L) 30 - 100 ng/mL [facility] Comment: Vitamin D Status ? 25-OH Vitamin D: Deficiency: ?<20 ng/mL Insufficiency: ? 20 - 29 ng/mL Optimal: ? > or = 30 ng/mL For 25-OH Vitamin D testing on patients on D2-supplementation and patients for whom quantitation of D2 and D3 fractions is required, the QuestAssure[facility](TM) 25-OH VIT D, (D2,D3), LC/MS/MS is recommended: order code 62222 (patients >2yrs). See Note 1 Note 1 For additional information, please refer to http://education.Backlift/faq/UYE400 (This link is being provided for informational/ educational purposes only.) Blood specimen (specimen) 10/02/2021 2:27 PM CDT 10/02/2021 2:29 PM CDT Narrative [facility] - 10/03/2021 7:39 AM CDT FASTING:NO FASTING: NO us Lin Guerrero MD LAB BLOOD ORDERABLES Final Resul t Performing Organization Address City/State/[facility] Co de Phone Number [facility] [address] [facility] [place] [address] * PTH (10/02/2021 2:27 PM CDT) Pathologist [facility] Parathyroid hormone, intact 52 16 - 77 pg/mL [facility] Comment: Interpretive Guide ?Intact PTH ? [...] BLOOD ORDERABLES Final Resul t [facility] [address] [place] [address] documented in this encounter Visit Diagnoses Diagnosis Stage 3 chronic kidney disease, unspecified whether stage 3a or 3b CKD (HCC)- Primary Essential hypertension Unspecified essential hypertension Vitamin D deficiency Secondary hyperparathyroidism of renal origin (HCC) Secondary hyperparathyroidism (of renal origin) documented in this encounter Care Teams Raw Finish Mill Operator Relationship Specialty Start Date End Date Kraig Ching MD [address] [facility] [address] [place] [address] PCP - General 07/10/16 Gautam Cope MD [address] [facility] [address] [place] [address] Medical Oncologist/Supervisor Buffing And Pasting Medical Oncology 08/18/18 Tramaine Roe MD [address] [facility] [address] [place] [address] Referring Physician Urology 08/18/18 Sukhwinder Uribe MD [address] [facility] [address] [place] [address] Consulting Physician Urology 08/18/18 Shay Guillermo MD [address] [facility] [address] [place] [address] Referring Physician Urology 08/18/18 Marsha Landis, RN Registered Nurse 11/17/18 documented as of this encounter
--- OUTSIDE RECORDS SUMMARY | 2024-03-31 11:29 | XMS_ITS | Encounter Summary ---
Author Organization [facility] Address [address] [place] [address] Phone Care Team Providers Care Ultrasonic Hand Solderer Name Role Phone Kraig Ching MD Primary Care Provider [phone] Gautam Cope MD Unavailable Tramaine Roe MD Unavailable [phone] Sukhwinder Uribe MD Unavailable [phone] Shay Guillermo MD Unavailable [phone] Marsha Landis RN Unavailable Unavailab le Encounter Details Date Type Department Care Team (Late st Contact Info) Description 12/08/2021 Orders Only [facility] Oncology [address] [place] [address] Muna Saleem RN Social History Tobacco Use [...] on file 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 Minimize further functional decline 2. Maximize quality of life 3. Control pain Strategies: - Activity/exercise program recommendation - Conservative stepwise pain medicine strategy with multi-disciplinary approach - Recommend healthy lifestyle strategies and compensatory methods as needed documented as of this encounter Visit Diagnoses Not on filedocumented in this encounter Care Teams Ultrasonic Hand Solderer Relationship Specialty Start Date End Date Kraig Ching MD [address] [place] [address] PCP - General 07/10/16 Gautam Cope MD [address] [place] [address] Medical Oncologist/Stockfeed Miller Medical Oncology 08/18/18 Tramaine Roe MD [address] [place] [address] Referring Physician Urology 08/18/18 Sukhwinder Uribe MD [address] [place] [address] Consulting Physician Urology 08/18/18 Shay Guillermo MD [address] [place] [address] Referring Physician Urology 08/18/18 Marsha Landis, RN Registered Nurse 11/17/18 documented as of this encounter
--- OUTSIDE RECORDS SUMMARY | 2024-03-31 11:29 | XMS_ITS | Encounter Summary ---
Author Organization [facility] Address [address] [place] [address] Phone Care Team Providers Care Intern Brand Name Role Phone Kraig Ching MD Primary Care Provider [phone] Gautam Cope MD Unavailable Tramaine Roe MD Unavailable [phone] Sukhwinder Uribe MD Unavailable [phone] Shay Guillermo MD Unavailable [phone] Marsha Landis RN Unavailable Unavailab le Reason for Visit * Episode Based Medications (Routine) - Authorized Specialty Diagnoses / Procedures Referred By Saleem narvaez Referred To Contact Oncology Diagnoses Prostate cancer (HCC) Procedures DE LEUPROLIDE ACETATE SUSPNSION Leuprolide Every 3 Months - Prostate Gautam Cope MD [address] [facility] [address] [place] [address] Phone: tel: fax: [facility] - Infusion [address] [facility] Floor [address] [place] [address] Referral ID Status Reason Start Date Expiration Date V isits Requested Visits Authorized [id number] Authorized 09/06/2018 07/11/2024 1 50 Encounter Details Date Type Department Care Team (Late st Contact Info) Description 09/16/2021 11:00 AM CDT Office Visit [facility] Oncology [address] [place] [address] 7th [place] [address] [place] [address] Gautam Cope MD [address] [facility] [address] [place] [address] Prostate cancer (CMS/HCC) (HCC) Social History Tobacco [...] file 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 shipping order clerk GLORIA/axel documented in this encounter Plan of [...] to monitor diabetes and kidney status, etc. [facility] Chronic Pain Care Plan Chronic Care Management No change(03/23 1:47 PM GROCERY SHOPPER) No Ingrid Oden, RN Note: Problem: Chronic [...] 022 documented in this encounter Care Teams Intern Brand Relationship Specialty Start Date End Date Kraig Ching MD [address] [facility] [address] [place] [address] PCP - General 07/10/16 Gautam Cope MD [address] [facility] [address] [place] [address] Medical Oncologist/Reagent Tender Medical Oncology 08/18/18 Tramaine Roe MD [address] [facility] [address] [place] [address] Referring Physician Urology 08/18/18 Sukhwinder Uribe MD [address] [facility] [address] [place] [address] Consulting Physician Urology 08/18/18 Shay Guillermo MD [address] [facility] [address] [place] [address] Referring Physician Urology 08/18/18 Marsha Landis RN Registered Nurse 11/17/18 documented as of this encounter
--- OUTSIDE RECORDS SUMMARY | 2024-03-31 11:29 | XMS_ITS | Encounter Summary ---
Author Organization [facility] Address [address] [place] [address] Phone Care Team Providers Care Heel Slugger Name Role Phone Kraig Ching MD Primary Care Provider [phone] Gautam Cope MD Unavailable Tramaine Roe MD Unavailable [phone] Sukhwinder Uribe MD Unavailable [phone] Shay Guillermo MD Unavailable [phone] Marsha Landis RN Unavailable Unavailab le Encounter Details Date Type Department Care Team (Late st Contact Info) Description 08/12/2021 Telephone [facility] Nephrology [address] [facility] Advanced Medicine 5th [place] [address] [place] [address] Liliana Baird Social History Tobacco [...] on file 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 Gender Identity Not on file Sexual [...] Chronic Care Management No change(03/23 1:47 PM AIRPORT DUTY MANAGER) No Ingrid Oden, RN Note: Problem: [...] ?[address] ?[address] ?[place] [address] 08/15/2021 10:1 4 AM CDT 08/15/2021 10:16 AM CDT Narrative [facility] - 08/16/2021 5:34 AM CDT VARIFIED ALL INFO FASTING:NO FASTING: NO Lin Guerrero MD LAB BLOOD ORDERABLES Final Resul t [facility] * COPY(IES) SENT TO: (08/15/2021 10:14 AM CDT) COPY(IES) SENT TO: [facility] Comment: ?[facility] RENAL ?[address] ?[address] ?[place] [address] 08/15/2021 10:1 4 AM CDT 08/15/2021 10:16 AM CDT Narrative [facility] - 08/16/2021 5:34 AM CDT VARIFIED ALL INFO FASTING:NO FASTING: NO us Lin Guerrero MD LAB BLOOD ORDERABLES Final Resul t Performing Organization Address [facility]/ZIP Co de Phone Number [facility] * [...] ORDERABLES Final Resul t Performing Organization Address City/[facility]/ZIP Co de Phone Number [facility] [address] [address] * (ABNORMAL) Basic metabolic panel (08/15/2021 10:14 AM CDT) Glucose 62(L) 65 - 139 mg/dL [facility] Comment: ? Non-fasting reference interval BUN 35(H) 7 - 25 mg/dL [facility] Creatinine 1.99(H) 0.70 - 1.11 mg/dL [facility] Comment: For patients >49 years of age, the reference limit for Creatinine is approximately 13% higher for people identified as -Maltese. eGFR NON-AFR. SLOVENIAN 31(L) > OR = 60 mL/min/1. 73m2 [...] BLOOD ORDERABLES Final Resul t [facility] [address] [place] [address] documented in this encounter Visit Diagnoses Diagnosis Stage 3 chronic kidney disease, unspecified whether stage 3a or 3b CKD (HCC)- Primary Essential hypertension Unspecified essential hypertension Low back pain, unspecified back pain laterality, unspecified chronicity, unspecified whether sciatica present documented in this encounter Care Teams Heel Slugger Relationship Specialty Start Date End Date Kraig Ching MD [address] [facility] [address] [place] [address] PCP - General 07/10/16 Gautam Cope MD [address] [facility] [address] [place] [address] Medical Oncologist/Vacuum Frame Operator Medical Oncology 08/18/18 Tramaine Roe MD [address] [facility] [address] [place] [address] Referring Physician Urology 08/18/18 Sukhwinder Uribe MD [address] [facility] [address] [place] [address] Consulting Physician Urology 08/18/18 Shay Guillermo MD [address] [facility] [address] [place] [address] Referring Physician Urology 08/18/18 Marsha Landis, RN Registered Nurse 11/17/18 documented as of this encounter
--- OUTSIDE RECORDS SUMMARY | 2024-03-31 11:29 | XMS_ITS | Encounter Summary ---
Author Organization [facility] Healthcare Address [address] [place] [address] Care Team Providers Care Fire Engine Operator Name Role Phone Kraig Ching MD Primary Care Provider [phone] Gautam Cope MD Unavailable Tramaine Roe MD Unavailable [phone] Sukhwinder Uribe MD Unavailable [phone] Shay Guillermo MD Unavailable [phone] Marsha Landis RN Unavailable Unavailab le Encounter Details Date Type Department Care Team (Latest Contact Info) Description 09/16/2021 8:35 AM CDT - 09/16/2021 11:59 PM CDT Hospital Encounter [facility] [address] [place] [address] Prostate cancer (CMS/HCC) (HCC) Discharge Disposition: Discharge [...] file 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 Testing performed by: [facility], [address] [facility] [phone] Blood 09/16/2021 10:2 9 AM CDT 09/16/2021 10:33 AM CDT us Gautam Cope MD LAB BLOOD ORDERABLES Final Resul t Performing Organization Address [facility] Co de Phone Number [facility] Department [place] [address] * (ABNORMAL) Differential, auto (09/16/2021 10:29 AM CDT) Neutrophil abs 7.5(H) 1.8 - 6.6 K/cumm [facility] Comment:Testing performed by : [facility], [address] [place] [phone] Lymphocyte abs 1.8 1.2 - 3.3 K/cumm [facility] Comment:Testing performed by : [facility], [address] [place] [phone] Monocyte abs 0.8 0.2 - 1.2 K/cumm [facility] Comment:Testing performed by : [facility], [address] [place] [phone] Eosinophil abs 0.2 0.0 - 0.5 K/cumm [facility] Comment:Testing performed by : [facility], [address] [place] [phone] Basophil abs 0.1 0.0 - 0.2 K/cumm [facility] Comment:Testing performed by : [facility], [address] [place] [phone] Neutrophil pct 72.3 % [facility] Comment: Interpretive Data Percent cell count reference ranges are not reported, since discordance with absolute values may lead to misinterpretation of CBC data. Current Interpretive Data was last revised on 2017. Testing performed by: [facility], [address] [place] [phone] Lymphocyte pct 17.4 % [facility] Comment: Interpretive Data Percent cell count reference ranges are not reported, since discordance with absolute values may lead to misinterpretation of CBC data. Current Interpretive Data was last revised on 2017. Testing performed by: [facility], [address] [place] [phone] Monocyte pct 7.7 % [facility] Comment:Testing performed by : [facility], [address] [place] [phone] Eosinophil pct 1.7 % [facility] Comment:Testing performed by : [facility], [address] [place] [phone] Basophil pct 0.9 % [facility] Comment:Testing performed by : [facility], [address] [place] [phone] Blood 09/16/2021 10:2 9 AM CDT 09/16/2021 10:33 AM CDT us Gautam Cope MD LAB BLOOD ORDERABLES Final Resul t Performing Organization Address [facility] de Phone Number [facility] [place] [address] * Lactate dehydrogenase (LD) (09/16/2021 10:29 AM CDT) Pathologist [facility] Lactate dehydrogenase (LDH) 179 100 - 250 Units/L [facility] Comment:Testing performed by : [facility], [address] [place] [phone] Blood 09/16/2021 10:2 9 AM CDT 09/16/2021 10:33 AM CDT us Gautam Cope MD LAB BLOOD ORDERABLES Final Resul t Performing Organization Address [facility] de Phone Number [facility] [place] [address] * (ABNORMAL) CBC with auto differential (09/16/2021 10:29 AM CDT) Pathologist [facility] WBC 10.4(H) 3.8 - 9.8 K/cumm [facility] Comment:Testing performed by : [facility], [address] [place] [phone] Hgb 12.5(L) 13.8 - 17.2 g/dL [facility] Comment:Testing performed by : [facility], [address] [place] [phone] Hct 37.6(L) 40.7 - 50.3 % [facility] Comment:Testing performed by : [facility], [address] [place] [phone] Plt 354 140 - 440 K/cumm [facility] Comment:Testing performed by : [facility], [address] [place] [phone] MPV 7.9 6.8 - 10.4 fL [facility] Comment:Testing performed by : [place] [phone] RBC 4.27(L) 4.50 - 5.70 M/cumm [facility] Comment:Testing performed by : [facility], [address] [place], [place] [phone] MCV 88.0 80.0 - 97.6 fL [facility] Comment:Testing performed by : [facility], [address] [place] [phone] MCH 29.3 26.7 - 33.7 pg [facility] Comment:Testing performed by : [facility], [address] [place], [place] [phone] MCHC 33.3 32.7 - 35.5 g/dL [facility] Comment:Testing performed by : [facility], [address] [place] [phone] RDW CV 14.6 11.8 - 14.6 % [facility] Comment:Testing performed by : [facility], [address] [place] [phone] NRBC abs 0.00 0.00 - 0.01 K/cumm [facility] Comment:Testing performed by : [facility], [address] [place] [phone] Blood 09/16/2021 10:2 9 AM CDT 09/16/2021 10:33 AM CDT us Gautam Cope MD LAB BLOOD ORDERABLES Final Resul t [facility] Department [place] [address] * (ABNORMAL) Comprehensive metabolic panel (09/16/2021 10:29 AM CDT) Sodium 143 135 - 145 mmol/L [facility] Comment:Testing performed by : [facility], [address] [place] [phone] Potassium, pl 4.7 3.3 - 4.9 mmol/L [facility] Comment:Testing performed by : [facility], [address] [place] [phone] Chloride 105 97 - 110 mmol/L [facility] Comment:Testing performed by : [facility], [address] [place] [phone] CO2 30 22 - 32 mmol/L [facility] Comment:Testing performed by : [facility], [address] [place] [phone] Anion gap 8 2 - 15 mmol/L [facility] Comment:Testing performed by : [facility], [address] [place] [phone] BUN 35(H) 8 - 25 mg/dL [facility] Comment:Testing performed by : [facility], [address] [place] [phone] Creatinine 1.60(H) 0.80 - 1.30 mg/dL [facility] Comment:Testing performed by : [facility], [address] [place] [phone] Glucose 113 70 - 199 mg/dL CERNER [...] was last revised 2017. Testing performed by: [facility], [address] [place] [phone] Calcium 9.4 8.5 - 10.3 mg/dL [facility] Comment:Testing performed by : [facility], [address] [place] [phone] Bilirubin, total 0.3 0.1 - 1.2 mg/dL [facility] Comment:Testing performed by : [facility], [address] [place] [phone] Protein, pl 6.7 6.5 - 8.5 g/dL [facility] Comment:Testing performed by : [facility], [address] [place] [phone] Albumin 4.2 3.5 - 5.0 g/dL [facility] Comment:Testing performed by : [facility], [address] [place] [phone] Alk phos 123 40 - 130 Units/L [facility] Comment:Testing performed by : [facility], [address] [place] [phone] ALT 11 7 - 55 Units/L [facility] Comment:Testing performed by : [facility], [address] [place] [phone] AST 13 10 - 50 Units/L [facility] Comment:Testing performed by : [facility], [address] [place] [phone] Blood 09/16/2021 10:2 9 AM CDT 09/16/2021 10:33 AM CDT us Gautam Cope MD LAB BLOOD ORDERABLES Final Resul t [facility] Department of Laboratories [place], [place] [id number] * PSA diagnostic (09/16/2021 10:29 AM CDT) [...] MD LAB BLOOD ORDERABLES Final Resul t [facility] Department [place] [address] documented in this encounter Visit Diagnoses Diagnosis Prostate cancer (HCC) Malignant neoplasm of prostate documented in this encounter Care Teams Fire Engine Operator Relationship Specialty Start Date End Date Kraig Ching MD [address] [place] [address] PCP - General 07/10/16 Gautam Cope MD [address] [place] [address] Medical Oncologist/Repair Manager Medical Oncology 08/18/18 Tramaine Roe MD [address] [place] [address] Referring Physician Urology 08/18/18 Sukhwinder Uribe MD [address] [place] [address] Consulting Physician Urology 08/18/18 Shay Guillermo MD [address] [place] [address] Referring Physician Urology 08/18/18 Marsha Landis, RN Registered Nurse 11/17/18 documented as of this encounter
--- OUTSIDE RECORDS SUMMARY | 2024-03-31 11:29 | XMS_ITS | Encounter Summary ---
Author Organization [facility] Address [address] [facility] [facility] [address] [place] [address] Care Team Providers Care Diesel Locomotive Crane Operator Name Role Phone Kraig Ching MD Primary Care Provider [phone] Gautam Cope MD Unavailable Tramaine Roe MD Unavailable [phone] Sukhwinder Uribe MD Unavailable [phone] Shay Guillermo MD Unavailable [phone] Marsha Landis RN Unavailable Unavailab le Reason for Visit * Reason Onset Date Comments Medical Question/Miscellaneous 12/08/2021 Encounter Details Date Type Department Care Team (Late st Contact Info) Description 12/08/2021 Telephone [facility] [address] [facility] [address] [place] [address] Kraig Ching MD [address] [facility] [address] [place] [address] Medical Question/Miscellaneous Social History Tobacco [...] on file 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 Caller???s Call back #: [phone] Does message need to be routed?Yes-Action Needed documented in this encounter Plan of Treatment Not on file documented as of this encounter Goals Goal Patient Goal Type Associated Problems Recent Progress Patient-Stated? Author ZAK General Goal - Patient is knowledgeable about condition when worsening and how to respond ACO Care Management No change(09/06 4:37 PM CDT) No Ielne Fragoso, RN Note: Problem: Knowledge deficit related [...] Chronic Care Management No change(03/23 1:47 PM WATER RESOURCE PROJECT MANAGER) No Ingrid Oden, SHEA Note: Problem: Chronic Pain Goals: 1. Minimize further functional decline 2. Maximize quality of life 3. Control pain Strategies: - Activity/exercise program recommendation - Conservative stepwise pain medicine strategy with multi-disciplinary approach - Recommend healthy lifestyle strategies and compensatory methods as needed documented as of this encounter Visit Diagnoses Not on filedocumented in this encounter Care Teams Diesel Locomotive Crane Operator Relationship Specialty Start Date End Date Kraig Ching MD [address] [facility] [address] [place], [place] [id number] PCP - General 07/10/16 Gautam Cope MD [address] [facility] [address] [place] [address] Medical Oncologist/Branch Manager Trainee Medical Oncology 08/18/18 Tramaine Roe MD [address] [facility] [address] [place] [address] Referring Physician Urology 08/18/18 Sukhwinder Uribe MD [address] [facility] [address] [place] [address] Consulting Physician Urology 08/18/18 Shay Guillermo MD [address] [facility] [address] [place] [address] Referring Physician Urology 08/18/18 Marsha Landis, RN Registered Nurse 11/17/18 documented as of this encounter
--- OUTSIDE RECORDS SUMMARY | 2024-03-31 11:30 | XMS_ITS | Encounter Summary ---
Author Organization [facility] Address [address] [facility] [address] [place] [address] Care Team Providers Care Editor Index Name Role Phone Kraig Ching MD Primary Care Provider [phone] Gautam Cope MD Unavailable Tramaine Roe MD Unavailable [phone] Sukhwinder Uribe MD Unavailable Shay Guillermo MD Unavailable [phone] Marsha Landis RN Unavailable Unavailab le Reason for Visit * Reason Onset Date Comments Med Refill 05/13/2021 Encounter Details Date Type Department Care Team (Late st Contact Info) Description 05/13/2021 Telephone [facility] [address] [facility] [address] [place] [address] Kraig Ching MD [address] [facility] [address] [place], [place] [id number] Med Refill Social History Tobacco Use Types [...] on file 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 ENT TENDER HELPER * Telephone Encounter - Kellen Patten MA - 05/16/2021 10:55 AM CST Please change insulin ENT TENDER HELPER * Telephone Encounter - Hailey Perez - 05/13/2021 12:06 PM CST Medication Question/Clarification Medication Name(s): insulin aspart (NovoLOG) 100 unit/mL (3 mL What is the question or clarification needed? Patient called stating that his insurance said that they will cover a generic brand only . If needed, Pharmacy(s) medication(s) should be sent to: Pharmacy on file. Caller???s Callback #: [phone] Additional Comments: none Does message need to be routed? Yes-Action Needed ENT TENDER HELPER documented in this encounter Plan of Treatment [...] Chronic Care Management No change(03/23 1:47 PM REAGENT TENDER HELPER) No Ingrid Oden, RN Note: Problem: Chronic Pain Goals: 1. Minimize further functional decline 2. Maximize quality of life 3. Control pain Strategies: - Activity/exercise program recommendation - Conservative stepwise pain medicine strategy with multi-disciplinary approach - Recommend healthy lifestyle strategies and compensatory methods as needed documented as of this encounter Visit Diagnoses Not on filedocumented in this encounter Care Teams Editor Index Relationship Specialty Start Date End Date Kraig Ching MD [address] [facility] [address] [place] [address] PCP - General 07/10/16 Gautam Cope MD [address] [facility] [address] [place] [address] Medical Oncologist/Nurse Extern Medical Oncology 08/18/18 Tramaine Roe MD [address] [facility] [address] [place] [address] Referring Physician Urology 08/18/18 Sukhwinder Uribe MD [address] [facility] [address] [place] [address] Consulting Physician Urology 08/18/18 Shay Guillermo MD [address] [facility] [address] [place] [address] Referring Physician Urology 08/18/18 Marsha Landis, RN Registered Nurse 11/17/18 documented as of this encounter
--- OUTSIDE RECORDS SUMMARY | 2024-03-31 11:30 | XMS_ITS | Encounter Summary ---
Author Organization [facility] [employer] [facility] Address [address] [place] [address] Phone Care Team Providers Care Joint Filler Name Role Phone Kraig Ching MD Primary Care Provider [phone] Gautam Cope MD Unavailable Tramaine Roe MD Unavailable [phone] Sukhwinder Uribe MD Unavailable [phone] Shay Guillermo MD Unavailable [phone] Marsha Landis RN Unavailable Unavailab le Reason for Visit * Consultation (Routine) - Closed Specialty Diagnoses / Procedures Referred By Saleem narvaez Referred To Contact Oncology Diagnoses Prostate cancer (HCC) Procedures ONCBCN ARM DRAW APPT ONC LAB ONLY Gautam Cope MD [address] [address] Phone: tel: fax: Gautam Cope MD [address] [address] Phone: tel: fax: Referral ID Status Reason Start Date Expiration Date V isits Requested Visits Authorized [id number] Closed Specialty Services Required 03/21/2021 04/11/2021 99 99 Encounter Details Date Type Department Care Team (Late st Contact Info) Description 04/01/2021 9:15 AM WOOL GROWER Lab [facility] Oncology [address] [place] [address] 7th [place] [address] [place] [id number] Prostate cancer ([facility]/HCC) (HCC) Social History Tobacco Use Types Packs/Day [...] on file 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 Gender Identity Not on file Sexual Orientation [...] Chronic Care Management No change(03/23 1:47 PM WOOL GROWER) No Ingrid Oden, RN Note: Problem: Chronic [...] Diagnosis Comments EGFR STAT 04/01/2021 9:38 AM WOOL GROWER Prostate cancer (CMS/HCC) (HCC) DIFFERENTIAL AUTO Routine 04/01/2021 9:3 8 AM WOOL GROWER Prostate cancer (CMS/HCC) (HCC) CBC WITH AUTO DIFFERENTIAL Routine 04/01/2021 9:38 AM WOOL GROWER Prostate cancer (CMS/HCC) (HCC) PSA DIAGNOSTIC Routine 04/01/2021 9:38 AM WOOL GROWER Prostate cancer (CMS/HCC) (HCC) LACTATE DEHYDROGENASE Routine 04/01/2021 9:38 AM WOOL GROWER Prostate cancer (CMS/HCC) (HCC) HEMOGLOBIN A1C Routine 04/01/2021 9:38 AM WOOL GROWER Prostate cancer (CMS/HCC) (HCC) COMPREHENSIVE METABOLIC PANEL STAT 04/01/2021 9:38 AM WOOL GROWER Prostate cancer (CMS/HCC) (HCC) documented in this encounter Results * (ABNORMAL) eGFR (04/01/2021 9:38 AM WOOL GROWER) eGFR 46(L) 90 - 130 mL/min/1. 73 [...] reviewed 2021. Testing performed by: [facility], [address] [place] [phone] Blood 04/01/2021 9:38 AM WOOL GROWER 04/01/2021 9:39 AM WOOL GROWER us Gautam Cope MD LAB BLOOD ORDERABLES Final Resul t [facility] Department [place] [address] * (ABNORMAL) Differential, auto (04/01/2021 9:38 AM WOOL GROWER) Neutrophil abs 7.7(H) 1.8 - 6.6 K/cumm [facility] Comment:Testing performed by : [facility], [address] [place] [phone] Lymphocyte abs 1.4 1.2 - 3.3 K/cumm [facility] Comment:Testing performed by : [facility], [address] [place] [phone] Monocyte abs 0.9 0.2 - 1.2 K/cumm [facility] Comment:Testing performed by : [facility], [address] [place] [phone] Eosinophil abs 0.1 0.0 - 0.5 K/cumm [facility] Comment:Testing performed by : [facility], [address] [place] [phone] Basophil abs 0.1 0.0 - 0.2 K/cumm [facility] Comment:Testing performed by : [facility], [address] [place] [phone] Neutrophil pct 75.9 % [facility] Comment: Interpretive Data Percent cell count reference ranges are not reported, since discordance with absolute values may lead to misinterpretation of CBC data. Current Interpretive Data was last revised on 2017. Testing performed by: [facility], [address] [place] [phone] Lymphocyte pct 13.5 % [facility] Comment: Interpretive Data Percent cell count reference ranges are not reported, since discordance with absolute values may lead to misinterpretation of CBC data. Current Interpretive Data was last revised on 2017. Testing performed by: [facility], [address] [place] [phone] Monocyte pct 8.4 % [facility] Comment:Testing performed by : [facility], [address] [place] [phone] Eosinophil pct 1.2 % [facility] Comment:Testing performed by : [facility], [address] [place] [phone] Basophil pct 1.0 % [facility] Comment:Testing performed by : [facility], [address] [facility] [phone] Blood 04/01/2021 9:38 AM WOOL GROWER 04/01/2021 9:39 AM WOOL GROWER Gautam Cope MD LAB BLOOD ORDERABLES Final Resul t Performing Organization Address [facility] de Phone Number [facility] Division [place] [address] * (ABNORMAL) Hemoglobin A1c (04/01/2021 9:38 AM WOOL GROWER) Pathologist [facility] Hgb A1C 10.6(H) 4.0 - 5.6 % [facility] Estimated Average Glucose 258 mg/dL [facility] Comment: The ADA recommends reporting an estimated Average Glucose (eAG) with all Hemoglobin A1c results using the equation derived from a study of 507 normal and diabetic adults. ??Minority populations were underrepresented and children were not included. ?? (Diabetes Care 2020; 43(S1): S66-S76). ??The eAG is not equivalent to a fasting glucose. Blood 04/01/2021 9:38 AM WOOL GROWER 04/01/2021 9:51 AM WOOL GROWER us Gautam Cope MD LAB BLOOD ORDERABLES Final Resul t Performing Organization Address [facility] de Phone Number [facility] Department [place] [address] * Lactate dehydrogenase (LD) (04/01/2021 9:38 AM WOOL GROWER) Pathologist [facility] Lactate dehydrogenase (LDH) 164 100 - 250 Units/L [facility] Comment:Testing performed by : [facility], [facility] [address] Blood 04/01/2021 9:38 AM WOOL GROWER 04/01/2021 9:39 AM WOOL GROWER us Gautam Cope MD LAB BLOOD ORDERABLES Final Resul t [facility] [place] [address] * (ABNORMAL) CBC with auto differential (04/01/2021 9:38 AM WOOL GROWER) WBC 10.2(H) 3.8 - 9.8 K/cumm [facility] Comment:Testing performed by : [facility], [address] [place] [phone] Hgb 12.6(L) 13.8 - 17.2 g/dL [facility] Comment:Testing performed by : [address] [address] Hct 37.8(L) 40.7 - 50.3 % [facility] Comment:Testing performed by : [facility], [address] [place] [phone] Plt 368 140 - 440 K/cumm [facility] Comment:Testing performed by : [address] [address] MPV 7.4 6.8 - 10.[address] [facility] Comment:Testing performed by : [address] [address] RBC 4.36(L) 4.50 - 5.70 M/cumm [facility] Comment:Testing performed by : [address] [address] MCV 86.6 80.0 - 97.6 fL [facility] Comment:Testing performed by : [address] [address] MCH 29.0 26.7 - 33.7 pg [facility] Comment:Testing performed by : [address] [address] MCHC 33.5 32.7 - 35.5 g/dL [facility] Comment:Testing performed by : [address] [address] RDW CV 14.3 11.8 - 14.6 % [facility] Comment:Testing performed by : [facility], [address] [place] [phone] NRBC abs 0.00 0.00 - 0.01 K/cumm [facility] Comment:Testing performed by : [facility], [address] [place] [phone] Blood 04/01/2021 9:38 AM WOOL GROWER 04/01/2021 9:39 AM WOOL GROWER us Gautam Cope MD LAB BLOOD ORDERABLES Final Resul t [facility] Department [place] [address] * (ABNORMAL) Comprehensive metabolic panel (04/01/2021 9:38 AM WOOL GROWER) Sodium 141 135 - 145 mmol/L [facility] Comment:Testing performed by : [facility], [address] [place] [phone] Potassium, pl 4.2 3.3 - 4.9 mmol/L [facility] Comment:Testing performed by : [facility], [address] [place] [phone] Chloride 100 97 - 110 mmol/L [facility] Comment:Testing performed by : [facility], [address] [place] [phone] CO2 34(H) 22 - 32 mmol/L [facility] Comment:Testing performed by : [facility], [address] [place] [phone] Anion gap 7 2 - 15 mmol/L [facility] Comment:Testing performed by : [facility], [address] [place] [address] BUN 29(H) 8 - 25 mg/dL [facility] Comment:Testing performed by : [facility], [address] [place] [phone] Creatinine 1.52(H) 0.80 - 1.30 mg/dL [facility] Comment:Testing performed by : [facility], [address] [place] [phone] Glucose 153 70 - 199 mg/dL [facility] [...] last revised 2017. Testing performed by: [facility], [address] [place] [phone] Calcium 9.3 8.5 - 10.3 mg/dL [facility] Comment:Testing performed by : [address] [address] Bilirubin, total 0.3 0.1 - 1.2 mg/dL [facility] Comment:Testing performed by : [facility], [address] [place] [phone] Protein, pl 6.9 6.5 - 8.5 g/dL [facility] Comment:Testing performed by : [address] [address] Albumin 4.1 3.5 - 5.0 g/dL [facility] Comment:Testing performed by : [address] [address] Alk phos 123 40 - 130 Units/L [facility] Comment:Testing performed by : [facility], [address] [place] [phone] ALT 13 7 - 55 Units/L [facility] Comment:Testing performed by : [address] [address] AST 12 10 - 50 Units/L [facility] Comment:Testing performed by : [address] [address] Blood 04/01/2021 9:38 AM WOOL GROWER 04/01/2021 9:39 AM WOOL GROWER Gautam Cope MD LAB BLOOD ORDERABLES Final Resul t Performing Organization Address [facility] de Phone Number [facility] Department [place] [address] * PSA diagnostic (04/01/2021 9:38 AM WOOL GROWER) PSA-Total <0.10 <=6.20 ng/mL [facility] Comment: Interpretive Data ?AGE ? SEX ?REFERENCE INTERVAL 0 minutes-150 years ?Female ?None 0 minutes-49 years ? Male ?None ? 50-59 years ? Male ?0-3.90 ? 60-69 years ? Male ?0-5.40 ? 70-79 years ? Male ?0-6.20 ? 80-150 years ?Male ?0-6.20 Current interpretive data last revised 2017. Blood 04/01/2021 9:38 AM WOOL GROWER 04/01/2021 10:31 AM WOOL GROWER us Gautam Cope MD LAB BLOOD ORDERABLES Final Resul t Performing Organization Address [facility] de Phone Number [facility] Department [place] [address] documented in this encounter Visit Diagnoses Diagnosis Prostate cancer (HCC) Malignant neoplasm of prostate documented in this encounter Orders Outpatient Referral Count Last Ordered Date Fir st Ordered Date AMB REFERRAL TO ONCOLOGY 1 04/01/2021 Appointment Requests Count Last Ordered Date Fi rst Ordered Date ONCBCN LAB APPOINTMENT 1 04/01/2021 documented in this encounter Care Teams Joint Filler Relationship Specialty Start Date End Date Kraig Ching MD [address] [place] [address] PCP - General 07/10/16 Gautam Cope MD [address] [place] [address] Medical Oncologist/Reel Operator Medical Oncology 08/18/18 Tramaine Roe MD [address] [place] [address] Referring Physician Urology 08/18/18 Sukhwinder Uribe MD [address] [place] [address] Consulting Physician Urology 08/18/18 Shay Guillermo MD [address] [place] [address] Referring Physician Urology 08/18/18 Marsha Landis, RN Registered Nurse 11/17/18 documented as of this encounter
--- OUTSIDE RECORDS SUMMARY | 2024-03-31 11:30 | XMS_ITS | Encounter Summary ---
Author Organization [facility] Address [address] [facility] [address] [place] [address] Care Team Providers Care Build And Deployment Engineer Name Role Phone Kraig Ching MD Primary Care Provider [phone] Gautam Cope MD Unavailable Tramaine Roe MD Unavailable [phone] Sukhwinder Uribe MD Unavailable [phone] Shay Guillermo MD Unavailable [phone] Marsha Landis RN Unavailable Unavailab le Reason for Visit * Reason Onset Date Comments Medication Request 07/22/2021 Encounter Details Date Type Department Care Team (Late st Contact Info) Description 07/22/2021 Telephone [facility] [address] [facility] [address] [place] [address] Kraig Ching MD [address] [facility] [address] [place] [address] Medication Request Social History Tobacco [...] on file 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 [facility] Chronic Pain Care Plan Chronic Care Management No change(03/23 1:47 PM CONDUCTOR ORCHESTRA) No Ingrid Oden RN Note: Problem: Chronic Pain Goals: 1. Minimize further functional decline 2. Maximize quality of life 3. Control pain Strategies: - Activity/exercise program recommendation - Conservative stepwise pain medicine strategy with multi-disciplinary approach - Recommend healthy lifestyle strategies and compensatory methods as needed documented as of this encounter Visit Diagnoses Not on filedocumented in this encounter Care Teams Build And Deployment Engineer Relationship Specialty Start Date End Date Kraig Ching MD [address] [facility] [address] [place] [address] PCP - General 07/10/16 Gautam Cope MD [address] [facility] [address] [place] [address] Medical Oncologist/Public Information Specialist Medical Oncology 08/18/18 Tramaine Roe MD [address] [facility] [address] [place] [address] Referring Physician Urology 08/18/18 Sukhwinder Uribe MD [address] [facility] [address] [place] [address] Consulting Physician Urology 08/18/18 Shay Guillermo MD [address] [facility] [address] [place] [address] Referring Physician Urology 08/18/18 Marsha Landis, RN Registered Nurse 11/17/18 documented as of this encounter
--- OUTSIDE RECORDS SUMMARY | 2024-03-31 11:30 | XMS_ITS | Encounter Summary ---
Author Organization [facility] Address [address] [place] [address] Phone Care Team Providers Care Geothermal Sheet Metal Worker Name Role Phone Kraig Ching MD Primary Care Provider [phone] Gautam Cope MD Unavailable Tramaine Roe MD Unavailable [phone] Sukhwinder Uribe MD Unavailable [phone] Shay Guillermo MD Unavailable [phone] Marsha Landis RN Unavailable Unavailab le Encounter Details Date Type Department Care Team (Late st Contact Info) Description 08/08/2021 Telephone [facility]rology [address] [facility] Advanced Medicine 5th [place] [address] [place] [address] Lin Guerrero MD [address] [facility] [address] [place] [address] Social History Tobacco Use Types [...] on file 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 He will get BMP at [facility] next Wednesday morning, order placed. He will also watch his salt intake and monitor BP (BID with HR, went over proper BP technique.) I will call him next Wednesday to make sure hewent to [facility] and to get new BP log and [...] his medication or not. Please advise and [phone] Elisha Miranda documented in this encounter Plan [...] Chronic Care Management No change(03/23 1:47 PM FOREIGN LANGUAGE INSTRUCTOR) No Ingrid Oden, RN Note: Problem: Chronic [...] Pt needs to call for f/u appt [phone]. Alternate therapy 12/23/2020 08/08/2021 documented as of this encounter Care Teams Geothermal Sheet Metal Worker Relationship Specialty Start Date End Date Kraig Ching MD [address] [place], [place] [id number] PCP - General 07/10/16 Gautam Cope MD [address] [place], [place] [id number] Medical Oncologist/Welfare Investigator Medical Oncology 08/18/18 Tramaine Roe MD [address] [facility] [address] [place] [address] Referring Physician Urology 08/18/18 Sukhwinder Uribe MD [address] [facility] [address] [place] [address] Consulting Physician Urology 08/18/18 Shay Guillermo MD [address] [facility] [address] [place] [address] Referring Physician Urology 08/18/18 Marsha Landis, RN Registered Nurse 11/17/18 documented as of this encounter
--- OUTSIDE RECORDS SUMMARY | 2024-03-31 11:30 | XMS_ITS | Encounter Summary ---
Author Organization [facility] Address [address] [place] [address] Phone Care Team Providers Care Asphalt Surface Heater Operator Name Role Phone Kraig Ching MD Primary Care Provider [phone] Gautam Cope MD Unavailable Tramaine Roe MD Unavailable [phone] Sukhwinder Uribe MD Unavailable [phone] Shay Guillermo MD Unavailable [phone] Marsha Landis RN Unavailable Unavailab le Reason for Visit * Reason Comments Injections Leuprolide 22.5mg/ri ght lower abdomen * Episode Based Medications (Routine) - Authorized Specialty Diagnoses / Procedures Referred By Contac t Referred To Contact Oncology Diagnoses Prostate cancer (HCC) Procedures [place] LEUPROLIDE ACETATE SUSPNSION Leuprolide Every 3 Months - Prostate Gautam Cope MD [address] [facility] [address] [place] [address] Phone: tel: fax: [facility] [address] [facility] [address] [place] [address] Referral ID Status Reason Start Date Expiration Date V isits Requested Visits Authorized [id number] Authorized 09/06/2018 07/11/2024 1 50 Encounter Details Date Type Department Care Team (Late st Contact Info) Description 06/24/2021 11:00 AM CDT Infusion [facility] Oncology [facility] 7th [place] [id number] Prostate cancer (CMS/HCC) (HCC) (Primary Dx) Social [...] on file 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 [facility] Chronic Pain Care Plan Chronic Care Management No change(03/23 1:47 PM WIRE WEAVER HELPER) No Ingrid Oden, RN Note: Problem: [...] 06/10 documented in this encounter Care Teams Asphalt Surface Heater Operator Relationship Specialty Start Date End Date Kraig Ching MD [address] [facility] [address] [address] [place] [address] PCP - General 07/10/16 Gautam Cope MD [address] [place] [address] Medical Oncologist/Nutrition Tech Medical Oncology 08/18/18 Tramaine Roe MD [address] [facility] [address] [place] [address] Referring Physician Urology 08/18/18 Sukhwinder Uribe MD [address] [facility] [address] [place] [address] Consulting Physician Urology 08/18/18 Shay Guillermo MD [address] [facility] [address] [place] [address] Referring Physician Urology 08/18/18 Marsha Landis, RN Registered Nurse 11/17/18 documented as of this encounter
--- OUTSIDE RECORDS SUMMARY | 2024-03-31 11:30 | XMS_ITS | Encounter Summary ---
Author Organization [facility] Address [address] [place] [address] Phone Care Team Providers Care Bsw Name Role Phone Kraig Ching MD Primary Care Provider [phone] Gautam Cope MD Unavailable Tramaine Roe MD Unavailable [phone] Sukhwinder Uribe MD Unavailable [phone] Shay Guillermo MD Unavailable [phone] Marsha Landis RN Unavailable Unavailab le Reason for Visit * Consultation (Routine) - Authorized Specialty Diagnoses / Procedures Referred By Saleem narvaez Referred To Contact Oncology Diagnoses Prostate cancer (HCC) Tramaine Roe MD [address] [facility] [address] [place] [address] Phone: tel: fax: Gautam Cope MD [address] [facility], [address] [place] [address] Phone: tel: fax: Referral ID Status Reason Start Date Expiration Date Visits Requested Visits Authorized [id number] Authorized Specialty Services Required 08/15/2018 04/11/2024 99 99 Encounter Details Date Type Department Care Team (Late st Contact Info) Description 04/01/2021 10:00 AM HANDBAG FRAMES INSPECTOR Office Visit [facility] Oncology [address] [facility] 7th [place] [address] [place] [address] Gautam Cope MD [address] [facility] [address] [place] [address] Prostate cancer (CMS/HCC) (HCC) Social History Tobacco [...] on file Legal Sex Male 4:46 PM HANDBAG FRAMES INSPECTOR Gender Identity Not on file Sexual Orientation Not on file documented as of this encounter Last Filed Vital Signs Vital Sign Reading Time Taken Comments Blood Pressure 165/88 04/01/2021 9:46 AM HANDBAG FRAMES INSPECTOR Pulse 80 04/01/2021 9:44 AM HANDBAG FRAMES INSPECTOR Temperature 36.1 ??C (97 ??F) 04/01/2021 9:4 4 AM HANDBAG FRAMES INSPECTOR Respiratory Rate 18 04/01/2021 9:44 AM HANDBAG FRAMES INSPECTOR Oxygen Saturation 96% 04/01/2021 9:4 4 AM HANDBAG FRAMES INSPECTOR Inhaled Oxygen Concentration - - Weight 95.5 kg (210 lb 9.6 oz) 04/01/2021 9:46 AM HANDBAG FRAMES INSPECTOR pt refused to remove shoes Height - [...] biopsy of his prostate. The biopsy showed Portage 3+ 4 disease, and he underwent a radical prostatectomy performed by Dr. Guillermo. He was found to have Portage 4 + 3 disease with extracapsular extension [...] The patient came in today because on [employer], he read his imaging tests and was [...] - 04/01/2021 06:57 PM Gautam Cope M.D. employee relations manager GLORIA/lul BAG FRAMES INSPECTOR documented in this encounter Plan of Treatment [...] Chronic Care Management No change(03/23 1:47 PM HANDBAG FRAMES INSPECTOR) No Ingrid Oden, SHEA Note: Problem: [...] 021 documented in this encounter Care Teams Bsw Relationship Specialty Start Date End Date Kraig Ching MD [address] [place] [address] PCP - General 07/10/16 Gautam Cope MD [address] [place] [address] Medical Oncologist/Bone Cooking Operator Medical Oncology 08/18/18 Tramaine Roe MD [address] [place] [address] Referring Physician Urology 08/18/18 Sukhwinder Uribe MD [address] [place] [address] Consulting Physician Urology 08/18/18 Shay Guillermo MD [address] [place] [address] Referring Physician Urology 08/18/18 Marsha Landis, RN Registered Nurse 11/17/18 documented as of this encounter
--- OUTSIDE RECORDS SUMMARY | 2024-03-31 11:30 | XMS_ITS | Encounter Summary ---
Author Organization [facility] Address [address] [facility] [address] [place] [address] Care Team Providers Care Vehicle Insurance Agent Name Role Phone Kraig Ching MD Primary Care Provider [phone] Gautam Cope MD Unavailable Tramaine Roe MD Unavailable [phone] Sukhwinder Uribe MD Unavailable Shay Guillermo MD Unavailable [phone] Marsha Landis RN Unavailable Unavailab le Encounter Details Date Type Department Care Team (Late st Contact Info) Description 04/08/2021 9:45 AM EDISCOVERY PROJECT MANAGER Office Visit [facility] [address] [facility] [address] [place] [address] Kraig Ching MD [address] [facility] [address] [place] [address] Hypertensive kidney disease with stage [...] on file Legal Sex Male 4:46 PM EDISCOVERY PROJECT MANAGER Gender Identity Not on file Sexual Orientation Not on file documented as of this encounter Last Filed Vital Signs Vital Sign Reading Time Taken Comments Blood Pressure 140/80 04/08/2021 9:57 AM EDISCOVERY PROJECT MANAGER Pulse 86 04/08/2021 9:57 AM EDISCOVERY PROJECT MANAGER Temperature - - Respiratory Rate - - Oxygen Saturation 97% 04/08/2021 9:57 AM EDISCOVERY PROJECT MANAGER Inhaled Oxygen Concentration - - Weight 95.3 kg (210 lb) 04/08/2021 9:57 AM EDISCOVERY PROJECT MANAGER Height 180 cm (5' 10.87 ) 04/08/2021 9:57 AM EDISCOVERY PROJECT MANAGER Body Mass Index 29.4 04/08/2021 9:57 AM EDISCOVERY PROJECT MANAGER documented in this encounter Ordered Prescriptions Prescription [...] 3 (three) times a day before meals COVERY PROJECT MANAGER documented in this encounter Miscellaneous Notes * Assessment & Plan Note - Kraig Ching MD - 04/08/2021 5:55 AM EDISCOVERY PROJECT MANAGER Associated Problem(s): Gastroesophageal reflux disease Reviewed dietary modifications. Continue PPI. COVERY PROJECT MANAGER * Assessment & Plan Note - Kraig Ching MD - 04/08/2021 5:54 AM EDISCOVERY PROJECT MANAGER Associated Problem(s): Chronic bilateral low back pain with bilateral sciatica Continue oxycodone. Continue home PT exercises. Continue walker. COVERY PROJECT MANAGER * Assessment & Plan Note - Kraig Ching MD - 04/08/2021 5:54 AM EDISCOVERY PROJECT MANAGER Associated Problem(s): Hypertensive kidney disease with chronic kidney disease stage III (HCC) Hypertension is controlled. Continue current regimen.Limit nephrotoxins. Monitor creatinine improved to 1.54 on 04/01/21. Order creatinine.. Avoid NSAIDS. COVERY PROJECT MANAGER * Assessment & Plan Note - Kraig Ching MD - 04/08/2021 5:53 AM EDISCOVERY PROJECT MANAGER Associated Problem(s): Hyperlipidemia associated with type 2 diabetes mellitus (HCC) Reviewed HgBA1C elevated at 10.6 on 04/01/21. Diabetes is not controlled.Increase Insulin to 28 units and continue Januvia. Start Novolin 8 units with meals.Refer to Endocrinology. Reviewed proper diet. Continue statin therapy. COVERY PROJECT MANAGER COVERY PROJECT MANAGER COVERY PROJECT MANAGER documented in this encounter Plan of [...] Chronic Care Management No change(03/23 1:47 PM EDISCOVERY PROJECT MANAGER) No Ingrid Oden, SHEA Note: [...] documented as of this encounter Care Teams Vehicle Insurance Agent Relationship Specialty Start Date End Date Kraig Ching MD [address] [facility] [address] [place] [address] PCP - General 07/10/16 Gautam Cope MD [address] [facility] [address] [place] [address] Medical Oncologist/Sterile Products Processor Medical Oncology 08/18/18 Tramaine Roe MD [address] [facility] [address] [place] [address] Referring Physician Urology 08/18/18 Sukhwinder Uribe MD [address] [facility] [address] [place] [address] Consulting Physician Urology 08/18/18 Shay Guillermo MD [id number] [place] [address] Referring Physician Urology 08/18/18 Marsha Landis, RN Registered Nurse 11/17/18 documented as of this encounter
--- OUTSIDE RECORDS SUMMARY | 2024-03-31 11:30 | XMS_ITS | Encounter Summary ---
Author Organization [facility] Address [address] [place] [address] Phone Care Team Providers Care Webmethods Architect Name Role Phone Kraig Ching MD Primary Care Provider [phone] Gautam Cope MD Unavailable Tramaine Roe MD Unavailable [phone] Sukhwinder Uribe MD Unavailable [phone] Shay Guillermo MD Unavailable [phone] Marsha Lanids RN Unavailable Unavailab le Reason for Visit * Episode Based Medications (Routine) - Authorized Specialty Diagnoses / Procedures Referred By Saleem narvaez Referred To Contact Oncology Diagnoses Prostate cancer (HCC) Procedures [place] LEUPROLIDE ACETATE SUSPNSION Leuprolide Every 3 Months - Prostate Gautam Cope MD [address] [facility] [address] [place] [address] Phone: tel: fax: [facility] - Infusion [address] [facility] [address] [place] [address] Referral ID Status Reason Start Date Expiration Date V isits Requested Visits Authorized [id number] Authorized 09/06/2018 07/11/2024 1 50 Encounter Details Date Type Department Care Team (Late st Contact Info) Description 06/24/2021 10:00 AM CDT Office Visit [facility] Oncology [address] [place] [address] 7th [place] [address] [place] [id number] Gautam Cope MD [address] [facility] [address] [place] [address] Prostate cancer (CMS/HCC) (HCC) Social History Tobacco [...] file 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 He hasbeen followed by a instructional coordinator, Dr. Guerrero, whom he has not seen since September 2020. We have suggested kianaiscuss this with his primary care physician whom he has an appointment with next month but also reach out to his instructional coordinator to get back in their loop. Mr. [...] - 06/24/2021 07:22 PM Gautam Cope M.D. care center manager ISAK/GLORIA/axel documented in this encounter Plan of [...] Care Management No change(03/23 1:47 PM MACHINE STEAK TENDERIZER) Ingrid Mcdaniels, RN Note: Problem: Chronic Pain [...] 022 documented in this encounter Care Teams Webmethods Architect Relationship Specialty Start Date End Date Kraig Ching MD [address] [place] [address] PCP - General 07/10/16 Gautam Cope MD [address] [place] [address] Medical Oncologist/Zipper Slide Attacher Medical Oncology 08/18/18 Tramaine Roe MD [address] [place] [address] Referring Physician Urology 08/18/18 Sukhwinder Uribe MD [address] [place] [address] Consulting Physician Urology 08/18/18 Shay Guillermo MD [address] [place] [address] Referring Physician Urology 08/18/18 Marsha Landis, RN Registered Nurse 11/17/18 documented as of this encounter
--- OUTSIDE RECORDS SUMMARY | 2024-03-31 11:30 | XMS_ITS | Encounter Summary ---
Author Organization [facility] Address [address] [facility] [address] [place] [address] Care Team Providers Care Envelope Stuffer Name Role Phone Kraig Ching MD Primary Care Provider [phone] Gautam Cope MD Unavailable Tramaine Roe MD Unavailable Sukhwinder Uribe MD Unavailable [phone] Shay Guillermo MD Unavailable [phone] Marsha Landis RN Unavailable Unavailab le Reason for Visit * Reason Onset Date Comments Medication Request 05/05/2021 Encounter Details Date Type Department Care Team (Late st Contact Info) Description 05/05/2021 Telephone [facility] [address] [facility] [address] [place] [address] Kraig Ching MD [address] [facility] [address] [place] [address] Medication Request Social History Tobacco [...] file Legal Sex Male 4:46 PM HEALTH 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 Gender Identity Not on file Sexual [...] to: Pharmacy on file Caller???s Callback #: [phone] Additional Comments: N/A Does message need to be routed? Yes-Action Needed TH 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 documented in this encounter Plan of Treatment [...] Care Management No change(03/23 1:47 PM HEALTH 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) No Ingrid Oden, SHEA Note: Problem: Chronic Pain Goals: 1. Minimize further functional decline 2. Maximize quality of life 3. Control pain Strategies: - Activity/exercise program recommendation - Conservative stepwise pain medicine strategy with multi-disciplinary approach - Recommend healthy lifestyle strategies and compensatory methods as needed documented as of this encounter Visit Diagnoses Not on filedocumented in this encounter Care Teams Envelope Stuffer Relationship Specialty Start Date End Date Kraig Ching MD [address] [place] [address] PCP - General 07/10/16 Gautam Cope MD [address] [place] [address] Medical Oncologist/Dowel Inspector Medical Oncology 08/18/18 Tramaine Roe MD [address] [facility] [address] [place] [address] Referring Physician Urology 08/18/18 Sukhwinder Uribe MD [address] [facility] [address] [place] [address] Consulting Physician Urology 08/18/18 Shay Guillermo MD [address] [facility] [address] [place] [address] Referring Physician Urology 08/18/18 Marsha Landis, RN Registered Nurse 11/17/18 documented as of this encounter
--- OUTSIDE RECORDS SUMMARY | 2024-03-31 11:30 | XMS_ITS | Encounter Summary ---
Author Organization [facility] Address [address] [facility] [address] [place] [address] Care Team Providers Care Service Employee Name Role Phone Kraig Ching MD Primary Care Provider [phone] Gautam Cope MD Unavailable Tramaine Roe MD Unavailable [phone] Sukhwinder Uribe MD Unavailable [phone] Shay Guillermo MD Unavailable Marsah Landis RN Unavailable Unavailab le Encounter Details Date Type Department Care Team (Late st Contact Info) Description 07/04/2021 Telephone [facility] [address] [facility] [address] [place] [address] Kraig Ching MD [address] [facility] [address] [place], [place] [id number] Social History Tobacco Use Types Packs/Day Years [...] on file 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 Minimize further functional decline 2. Maximize quality of life 3. Control pain Strategies: - Activity/exercise program recommendation - Conservative stepwise pain medicine strategy with multi-disciplinary approach - Recommend healthy lifestyle strategies and compensatory methods as needed documented as of this encounter Visit Diagnoses Not on filedocumented in this encounter Care Teams Service Employee Relationship Specialty Start Date End Date Kraig Ching MD [address] [place] [address] PCP - General 07/10/16 Gautam Cope MD [address] [place] [address] Medical Oncologist/Ophthalmic Pathologist Medical Oncology 08/18/18 Tramaine Roe MD [address] [place] [address] Referring Physician Urology 08/18/18 Sukhwinder Uribe MD [address] [place] [address] Consulting Physician Urology 08/18/18 Shay Guillermo MD [address] [place] [address] Referring Physician Urology 08/18/18 Marsha Landis, RN Registered Nurse 11/17/18 documented as of this encounter
--- OUTSIDE RECORDS SUMMARY | 2024-03-31 11:30 | XMS_ITS | Encounter Summary ---
Author Organization [facility] Address [address] [facility] [address] [place] [address] Care Team Providers Care Log Roller Name Role Phone Kraig Ching MD Primary Care Provider [phone] Gautam Cope MD Unavailable Tramaine Roe MD Unavailable [phone] Sukhwinder Uribe MD Unavailable [phone] Shay Guillermo MD Unavailable [phone] Marsha Landis RN Unavailable Unavailab le Encounter Details Date Type Department Care Team (Late st Contact Info) Description 06/11/2021 Telephone [facility] [address] [facility] [address] [place] [address] Kraig Ching MD [address] [facility] [address] [place], [place] [id number] Social History Tobacco Use Types Packs/Day Years [...] file Legal Sex Male 4:46 PM WIRE SPLICER Gender Identity Not on file Sexual Orientation Not on file documented as of this encounter Miscellaneous Notes * Telephone Encounter - Estefany Yen - 06/11/2021 9:43 AM CST David Wei (Garcia: [id number]) Rx #: [id number] NovoLOG FlexPen 100UNIT/ML pen-injectors Request Reference Number: [id number]. NOVOLOG INJ FLEXPEN is approved through 04/11/2022. Your patient may now fill this prescription and it will be covered. SPLICER documented in this encounter Plan of Treatment [...] Care Management No change(03/23 1:47 PM WIRE SPLICER) No Ingrid Oden, SHEA Note: Problem: Chronic Pain Goals: 1. Minimize further functional decline 2. Maximize quality of life 3. Control pain Strategies: - Activity/exercise program recommendation - Conservative stepwise pain medicine strategy with multi-disciplinary approach - Recommend healthy lifestyle strategies and compensatory methods as needed documented as of this encounter Visit Diagnoses Not on filedocumented in this encounter Care Teams Log Roller Relationship Specialty Start Date End Date Kraig Ching MD [address] [facility] [address] [place] [address] PCP - General 07/10/16 Gautam Cope MD [address] [place] [address] Medical Oncologist/Perinatal Social Worker Medical Oncology 08/18/18 Tramaine Roe MD [address] [place] [address] Referring Physician Urology 08/18/18 Sukhwinder Uribe MD [address] [facility] [address] [place] [address] Consulting Physician Urology 08/18/18 Shay Guillermo MD [address] [facility] [address] [place] [address] Referring Physician Urology 08/18/18 Marsha Landis RN Registered Nurse 11/17/18 documented as of this encounter
--- OUTSIDE RECORDS SUMMARY | 2024-03-31 11:30 | XMS_ITS | Encounter Summary ---
Author Organization [facility] Address [address] [place] [address] Phone Care Team Providers Care Filer Finish Name Role Phone Kraig Ching MD Primary Care Provider [phone] Gautam Cope MD Unavailable Tramaine Roe MD Unavailable [phone] Sukhwinder Uribe MD Unavailable [phone] Shay Guillermo MD Unavailable [phone] Marsha Landis RN Unavailable Unavailab le Encounter Details Date Type Department Care Team (Late st Contact Info) Description 06/23/2021 Orders Only [facility] Oncology [address] [facility] Advanced [facility] 7th [place] [address] [place] [address] Muna Saleem RN Prostate cancer [...] on file Legal Sex Male 4:46 PM THREAD SPINNER Gender Identity Not on file Sexual Orientation [...] Chronic Care Management No change(03/23 1:47 PM THREAD SPINNER) No Ingrid Oden, RN Note: Problem: Chronic [...] A1C 8.3(H) 4.0 - 5.6 % [facility] Estimated Average Glucose 192 mg/dL [facility] Comment: The ADA recommends reporting an estimated [...] Final Resul t Performing Organization Address City/State/[facility] Co de Phone Number [facility] Department [place] [address] documented in this encounter Visit Diagnoses Diagnosis Prostate cancer (HCC)- Primary Malignant neoplasm of prostate documented in this encounter Care Teams Filer Finish Relationship Specialty Start Date End Date Kraig Ching MD [address] [facility] [address] [place] [address] PCP - General 07/10/16 Gautam Cope MD [address] [facility] [address] [place] [address] Medical Oncologist/Learning Engineer Medical Oncology 08/18/18 Tramaine Roe MD [id number] [place] [address] Referring Physician Urology 08/18/18 Sukhwinder Uribe MD [address] [address] Consulting Physician Urology 08/18/18 Shay Guillermo MD [id number] [place] [address] Referring Physician Urology 08/18/18 Marsha Landis, RN Registered Nurse 11/17/18 documented as of this encounter
--- OUTSIDE RECORDS SUMMARY | 2024-03-31 11:30 | XMS_ITS | Encounter Summary ---
Author Organization [facility] Address [address] [facility] [address] [place] [address] Care Team Providers Care Junior Legal Secretary Name Role Phone Kraig Ching MD Primary Care Provider [phone] Gautam Cope MD Unavailable Tramaine Roe MD Unavailable [phone] Sukhwinder Uribe MD Unavailable [phone] Shay Guillermo MD Unavailable [phone] Marsha Landis RN Unavailable Unavailab le Reason for Visit * Reason Comments Follow-up Encounter Details Date Type Department Care Team (Late st Contact Info) Description 08/08/2021 12:45 PM CDT Office Visit [facility] [address] 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 Continue Lantus and Novolog. Essential hypertension Comments: BP above goal. Patient encouraged to contact nephrology re: recommendations. Hyperlipidemia associated with type 2 diabetes mellitus ([facility]) Comments: Most recent lipid panel reviewed. LDL not calculated due to hypertriglyceridemia. Lab today. Continue rosuvastatin. Orders: - Lipid panel; Future Prostate cancer ([facility]) ([facility]) Comments: Continue to follow with oncology. Stage 3 chronic kidney disease, unspecified whether stage 3a or 3b CKD ([facility]) Comments: Nephrotoxin avoidance encouraged. Continue management per [...] to monitor diabetes and kidney status, etc. [facility] Chronic Pain Care Plan Chronic Care Management No change(03/23 1:47 PM INTERNATIONAL LOGISTICS COORDINATOR) No Ingrid Oden, SHEA Note: Problem: [...] 08/08/2021 documented in this encounter Care Teams Junior Legal Secretary Relationship Specialty Start Date End Date Kraig Ching MD [address] [facility] [address] [place] [address] PCP - General 07/10/16 Gautam Cope MD [address] [facility] [address] [place] [address] Medical Oncologist/Cargo Bracer Medical Oncology 08/18/18 Tramaine Roe MD [address] [facility] [address] [place] [address] Referring Physician Urology 08/18/18 Sukhwinder Uribe MD [address] [facility] [address] [place] [address] Consulting Physician Urology 08/18/18 Shay Guillermo MD [address] [facility] [address] [place] [address] Referring Physician Urology 08/18/18 Marsha Landis, RN Registered Nurse 11/17/18 documented as of this encounter
--- OUTSIDE RECORDS SUMMARY | 2024-03-31 11:30 | XMS_ITS | Encounter Summary ---
Author Organization [facility] Address [address] [place] [address] Care Team Providers Care Marketing Ambassador Name Role Phone Kraig Ching MD Primary Care Provider [phone] Gautam Cope MD Unavailable Tramaine Roe MD Unavailable [phone] Sukhwinder Uribe MD Unavailable [phone] Shay Guillermo MD Unavailable [phone] Marsha Landis RN Unavailable Unavailab le Encounter Details Date Type Department Care Team (Late st Contact Info) Description 05/07/2021 Telephone [facility] [address] [place] [address] Kraig Ching MD [address] [facility] [address] [place], [place] [id number] Social History Tobacco Use Types Packs/Day Years [...] on file Legal Sex Male 4:46 PM TELEGRAPH MESSENGER Gender Identity Not on file Sexual Orientation Not on file documented as of this encounter Miscellaneous Notes * Telephone Encounter - Kellen Patten MA - 05/09/2021 8:27 AM CST LM on Yoselin's VM ok to change to Lantus Exact same directions and quantities GRAPH MESSENGER * Telephone Encounter - Kraig Ching MD - 05/09/2021 6:48 AM CST Yes , can change to Lantus . Exact same directions, quantities and refills. GRAPH MESSENGER * Telephone Encounter - Kellen Patten MA - 05/08/2021 5:55 PM CST Please change med and see note GRAPH MESSENGER * Telephone Encounter - Dina Mariana - 05/07/2021 2:44 PM CST New Prescription needed. Jorge Rincons in [place], [place] called [phone] She said Basaglar was not covered by pt's insurance. She asked if it could be changed to Lantus. If so, please change prescription and call mari to let her know. GRAPH MESSENGER documented in this encounter Plan of Treatment [...] diabetes and kidney status, etc. [facility] Chronic Pain Care Plan Chronic Care Management No change(03/23 1:47 PM TELEGRAPH MESSENGER) No Ingrid Oden, SHEA Note: Problem: Chronic Pain Goals: 1. Minimize further functional decline 2. Maximize quality of life 3. Control pain Strategies: - Activity/exercise program recommendation - Conservative stepwise pain medicine strategy with multi-disciplinary approach - Recommend healthy lifestyle strategies and compensatory methods as needed documented as of this encounter Visit Diagnoses Not on filedocumented in this encounter Care Teams Marketing Ambassador Relationship Specialty Start Date End Date Kraig Ching MD [address] [place], [place] [id number] PCP - General 07/10/16 Gautam Cope MD [address] [place] [address] Medical Oncologist/News Clerk Medical Oncology 08/18/18 Tramaine Roe MD [address] [place] [address] Referring Physician Urology 08/18/18 Sukhwinder Uribe MD [address] [place] [address] Consulting Physician Urology 08/18/18 Shay Guillermo MD [address] [place] [address] Referring Physician Urology 08/18/18 Marsha Landis, RN Registered Nurse 11/17/18 documented as of this encounter
--- OUTSIDE RECORDS SUMMARY | 2024-03-31 11:30 | XMS_ITS | Encounter Summary ---
Author Organization [facility] [employer] [facility] Address [address] [place] [address] Phone Care Team Providers Care Paralegal Internship Name Role Phone Kraig Ching MD Primary Care Provider [phone] Gautam Cope MD Unavailable Tramaine Roe MD Unavailable [phone] Sukhwinder Uribe MD Unavailable Shay Guillermo MD Unavailable [phone] Marsha Landis RN Unavailable Unavailab le Reason for Visit * Episode Based Medications (Routine) - Authorized Specialty Diagnoses / Procedures Referred By Saleem t Referred To Contact Oncology Diagnoses Prostate cancer (HCC) Procedures HI LEUPROLIDE ACETATE SUSPNSION Leuprolide Every 3 Months - Prostate Gautam Cope MD [address] [place] [address] Phone: tel: fax: [facility] - Infusion [address] [place] [address] Referral ID Status Reason Start Date Expiration Date V isits Requested Visits Authorized [id number] Authorized 09/06/2018 07/11/2024 1 50 Encounter Details Date Type Department Care Team (Late st Contact Info) Description 06/24/2021 9:15 AM CDT Lab [facility] Oncology [address] 7[address] [place] [address] [place] [id number] Prostate cancer (CMS/HCC) (HCC) Social History Tobacco [...] file 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 [facility] Chronic Pain Care Plan Chronic Care Management No change(03/23 1:47 PM ELECTRONIC GLUING MACHINE OPERATOR) No Ingrid Oden, RN Note: [...] STAT 06/24/2021 9:40 AM CDT Prostate cancer ([facility]) ([facility]) DIFFERENTIAL AUTO Routine 06/24/2021 9:4 0 AM CDT Prostate cancer ([facility]/HCC) ([facility]) CBC WITH AUTO DIFFERENTIAL Routine 06/24/2021 9:40 AM CDT Prostate cancer ([facility]/HCC) ([facility]) PSA DIAGNOSTIC Routine 06/24/2021 9:40 AM CDT Prostate cancer ([facility]) ([facility]) LACTATE DEHYDROGENASE Routine 06/24/2021 9:40 AM CDT Prostate cancer ([facility]) ([facility]) HEMOGLOBIN A1C Routine 06/24/2021 9:40 AM CDT Prostate cancer ([facility]) (HCC) COMPREHENSIVE METABOLIC PANEL STAT 06/24/2021 9:40 [...] was last reviewed 2021. Testing performed by: [facility], [address] [place] [phone] Blood 06/24/2021 9:40 AM CDT 06/24/2021 9:41 AM CDT us Gautam Cope MD LAB BLOOD ORDERABLES Final Resul t [facility] Department [place] [address] * (ABNORMAL) Differential, auto (06/24/2021 9:40 AM CDT) Neutrophil abs 7.5(H) 1.8 - 6.6 K/cumm [facility] Comment:Testing performed by : [facility], [address] [place] [phone] Lymphocyte abs 1.3 1.2 - 3.3 K/cumm [facility] Comment:Testing performed by : [facility], [address] [place] [phone] Monocyte abs 0.8 0.2 - 1.2 K/cumm [facility] Comment:Testing performed by : [facility], [address] [place] [phone] Eosinophil abs 0.2 0.0 - 0.5 K/cumm [facility] Comment:Testing performed by : [facility], [address] [place] [phone] Basophil abs 0.1 0.0 - 0.2 K/cumm [facility] Comment:Testing performed by : [facility], [address] [place] [phone] Neutrophil pct 76.6 % [facility] Comment: Interpretive Data Percent cell count reference ranges are not reported, since discordance with absolute values may lead to misinterpretation of CBC data. Current Interpretive Data was last revised on 2017. Testing performed by: [facility], [address] [place] [phone] Lymphocyte pct 12.9 % [facility] Comment: Interpretive Data Percent cell count reference ranges are not reported, since discordance with absolute values may lead to misinterpretation of CBC data. Current Interpretive Data was last revised on 2017. Testing performed by: [facility], [address] [place] [phone] Monocyte pct 7.9 % [facility] Comment:Testing performed by : [facility], [address] [place] [phone] Eosinophil pct 1.8 % [facility] Comment:Testing performed by : [facility], [address] [place] [phone] Basophil pct 0.8 % [facility] Comment:Testing performed by : [facility], [address] [phone] Blood 06/24/2021 9:40 AM CDT 06/24/2021 9:41 AM CDT Gautam Cope MD LAB BLOOD ORDERABLES Final Resul t Performing Organization Address [facility] de Phone Number [facility] Department [place] [address] * (ABNORMAL) Hemoglobin A1c (06/24/2021 9:40 AM CDT) Pathologist [facility] Hgb A1C 8.3(H) 4.0 - 5.6 % [facility] Estimated Average Glucose 192 mg/dL [facility] Comment: The ADA recommends reporting an [...] ORDERABLES Final Resul t Performing Organization Address [facility] de Phone Number [facility] Department [place] [address] * Lactate dehydrogenase (LD) (06/24/2021 9:40 AM CDT) Pathologist [facility] Lactate dehydrogenase (LDH) 173 100 - 250 Units/L [facility] Comment:Testing performed by : [facility], [address] [phone] Blood 06/24/2021 9:40 AM CDT 06/24/2021 9:41 AM CDT us Gautam Cope MD LAB BLOOD ORDERABLES Final Resul t [facility] Department [place] [address] * (ABNORMAL) CBC with auto differential (06/24/2021 9:40 AM CDT) WBC 9.8 3.8 - 9.8 K/cumm [facility] Comment:Testing performed by : [facility], [address] [place] [phone] Hgb 12.9(L) 13.8 - 17.2 g/dL [facility] Comment:Testing performed by : [address] [address] Hct 38.7(L) 40.7 - 50.3 % [facility] Comment:Testing performed by : [address] [address] Plt 325 140 - 440 K/cumm [facility] Comment:Testing performed by : [address] [address] MPV 7.6 6.8 - 10.4 fL [facility] Comment:Testing performed by : [address] [address] RBC 4.41(L) 4.50 - 5.70 M/cumm [facility] Comment:Testing performed by : [address] [address] MCV 87.7 80.0 - 97.6 fL [facility] Comment:Testing performed by : [address] [address] MCH 29.2 26.7 - 33.7 pg [facility] Comment:Testing performed by : [address] [address] MCHC 33.3 32.7 - 35.5 g/dL [facility] Comment:Testing performed by : [address] [address] RDW CV 14.3 11.8 - 14.6 % [facility] Comment:Testing performed by : [facility], [address] [place] [phone] NRBC abs 0.00 0.00 - 0.01 K/cumm [facility] Comment:Testing performed by : [facility], [address] [place] [phone] Blood 06/24/2021 9:40 AM CDT 06/24/2021 9:41 AM CDT us Gautam Cope MD LAB BLOOD ORDERABLES Final Resul t [facility] [place] [address] * (ABNORMAL) Comprehensive metabolic panel (06/24/2021 9:40 AM CDT) Sodium 142 135 - 145 mmol/L [facility] Comment:Testing performed by : [facility], [address] [place] [phone] Potassium, pl 4.9 3.3 - 4.9 mmol/L [facility] Comment:Testing performed by : [facility], [address] [place] [phone] Chloride 102 97 - 110 mmol/L [facility] Comment:Testing performed by : [facility], [address] [place] [address] CO2 31 22 - 32 mmol/L [facility] Comment:Testing performed by : [facility], [address] [place] [phone] Anion gap 9 2 - 15 mmol/L [facility] Comment:Testing performed by : [facility], [address] [place] [phone] BUN 48(H) 8 - 25 mg/dL [facility] Comment:Testing performed by : [facility], [address] [place] [phone] Creatinine 2.25(H) 0.80 - 1.30 mg/dL [facility] Comment:Testing performed by : [facility] [address] Glucose 176 70 - 199 mg/dL [facility] [...] was last revised 2017. Testing performed by: [address] [address] Calcium 9.3 8.5 - 10.3 mg/dL [facility] Comment:Testing performed by : [place] [address] Bilirubin, total 0.3 0.1 - 1.2 mg/dL [facility] Comment:Testing performed by : [address] [address] Protein, pl 6.9 6.5 - 8.5 g/dL [facility] Comment:Testing performed by : [address] [address] Albumin 4.2 3.5 - 5.0 g/dL [facility] Comment:Testing performed by : [address] [address] Alk phos 119 40 - 130 Units/L [facility] Comment:Testing performed by : [address] [address] ALT 13 7 - 55 Units/L [facility] Comment:Testing performed by : [address] [address] AST 13 10 - 50 Units/L [facility] Comment:Testing performed by : [address] [address] Blood 06/24/2021 9:40 AM CDT 06/24/2021 9:41 AM CDT Gautam Cope MD LAB BLOOD ORDERABLES Final Resul t Performing Organization Address [facility] de Phone Number [facility] Department [place] [employer] [place] [address] * PSA diagnostic (06/24/2021 9:40 AM CDT) PSA-Total <0.02 <=6.20 ng/mL [facility] Comment: Interpretive Data ?AGE ? SEX [...] ORDERABLES Final Resul t Performing Organization Address [facility] de Phone Number [facility] [email or web address] [address] documented in this encounter Visit Diagnoses Diagnosis Prostate cancer (HCC) Malignant neoplasm of prostate documented in this encounter Orders Appointment Requests Count Last Ordered Date Fi rst Ordered Date ONCBCN LAB APPOINTMENT 1 06/24/2021 documented in this encounter Care Teams Paralegal Internship Relationship Specialty Start Date End Date Kraig Ching MD [address] [place] [address] PCP - General 07/10/16 Gautam Cope MD [address] [facility] [place] [address] Medical Oncologist/Building Stonecutter Medical Oncology 08/18/18 Tramaine Roe MD [address] [place] [address] Referring Physician Urology 08/18/18 Sukhwinder Uribe MD [address] [place] [address] Consulting Physician Urology 08/18/18 Shay Guillermo MD [address] [place] [address] Referring Physician Urology 08/18/18 Marsha Landis, RN Registered Nurse 11/17/18 documented as of this encounter
--- OUTSIDE RECORDS SUMMARY | 2024-03-31 11:30 | XMS_ITS | Encounter Summary ---
Author Organization [facility] Address [address] [place] [address] Care Team Providers Care Technical Support Associate Name Role Phone Kraig Ching MD Primary Care Provider [phone] Gautam Cope MD Unavailable Tramaine Roe MD Unavailable [phone] Sukhwinder Uribe MD Unavailable [phone] Shay Guillermo MD Unavailable [phone] Mrasha Landis RN Unavailable Unavailab le Encounter Details Date Type Department Care Team (Late st Contact Info) Description 07/24/2021 Telephone [facility] [address] [facility] [address] [place] [address] Kraig Ching MD [address] [facility] [address] [place], [place] [id number] Social History Tobacco Use Types Packs/Day Years [...] on file 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 Minimize further functional decline 2. Maximize quality of life 3. Control pain Strategies: - Activity/exercise program recommendation - Conservative stepwise pain medicine strategy with multi-disciplinary approach - Recommend healthy lifestyle strategies and compensatory methods as needed documented as of this encounter Visit Diagnoses Not on filedocumented in this encounter Care Teams Technical Support Associate Relationship Specialty Start Date End Date Kragi Ching MD [address] [facility] [address] [place] [address] PCP - General 07/10/16 Gautam Cope MD [address] [facility] [address] [place] [address] Medical Oncologist/Manager Infrastructure Medical Oncology 08/18/18 Tramaine Roe MD [address] [facility] [address] [place] [address] Referring Physician Urology 08/18/18 Sukhwinder Uribe MD [address] [facility] [address] [place] [address] Consulting Physician Urology 08/18/18 Shay Guillermo MD [address] [facility] [address] [place] [address] Referring Physician Urology 08/18/18 Marsha Landis, RN Registered Nurse 11/17/18 documented as of this encounter
--- OUTSIDE RECORDS SUMMARY | 2024-03-31 11:30 | XMS_ITS | Encounter Summary ---
Author Organization [facility] Address [address] [place] [address] Care Team Providers Care Bookseamer Blindstitch Name Role Phone Kraig Ching MD Primary Care Provider [phone] Gautam Cope MD Unavailable Tramaine Roe MD Unavailable [phone] Sukhwinder Uribe MD Unavailable [phone] Shay Guillermo MD Unavailable [phone] Marsha Landis RN Unavailable Unavailab le Reason for Visit * Reason Onset Date Comments Call Back 05/14/2021 Encounter Details Date Type Department Care Team (Late st Contact Info) Description 05/14/2021 Telephone [facility] [address] [place] [address] Kraig Ching MD [address] [facility] [address] [place] [address] Call Back Social History Tobacco [...] file 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 Yes-FYI Only T INSPECTOR * Telephone Encounter - Willie Mtz - 05/14/2021 8:18 AM CST PA started for RX NovoLOG FlexPen 100UNIT/ML pen-injectors(peneding) T INSPECTOR documented in this encounter Plan of [...] to monitor diabetes and kidney status, etc. [facility] Chronic Pain Care Plan Chronic Care Management No change(03/23 1:47 PM PRINT INSPECTOR) No Ingrid Oden RN Note: Problem: Chronic Pain Goals: 1. Minimize further functional decline 2. Maximize quality of life 3. Control pain Strategies: - Activity/exercise program recommendation - Conservative stepwise pain medicine strategy with multi-disciplinary approach - Recommend healthy lifestyle strategies and compensatory methods as needed documented as of this encounter Visit Diagnoses Not on filedocumented in this encounter Care Teams Bookseamer Blindstitch Relationship Specialty Start Date End Date Kraig Ching MD [address] [facility] [address] [place] [address] PCP - General 07/10/16 Gautam Cope MD [address] [facility] [address] [place] [address] Medical Oncologist/Computer Hardware Technician Medical Oncology 08/18/18 Tramaine Roe MD [address] [facility] [address] [place] [address] Referring Physician Urology 08/18/18 Sukhwinder Uribe MD [address] [facility] [address] [place] [address] Consulting Physician Urology 08/18/18 Shay Guillermo MD [address] [facility] [address] [place] [address] Referring Physician Urology 08/18/18 Marsha Landis, RN Registered Nurse 11/17/18 documented as of this encounter
--- OUTSIDE RECORDS SUMMARY | 2024-03-31 11:30 | XMS_ITS | Encounter Summary ---
Author Organization [facility] Address [address] [place] [address] Phone Care Team Providers Care Invasive Cardiologist Name Role Phone Kraig Ching MD Primary Care Provider [phone] Gautam Cope MD Unavailable Tramaine Roe MD Unavailable [phone] Sukhwinder Uribe MD Unavailable [phone] Shay Guillermo MD Unavailable [phone] Marsha Landis RN Unavailable Unavailab le Encounter Details Date Type Department Care Team (Late st Contact Info) Description 06/21/2021 Orders Only [facility] Oncology [address] [facility] 7th [place] [address] [place] [address] Muna Saleem RN Prostate cancer [...] on file 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 80-150 years ?Male ?0-6.20 The [employer] PSA Total assay procedure was used. Results from different manufacturers or methods may not be comparable. Serial testing should be performed using the same method. Current interpretive data last revised 21. Blood 09/16/2021 10:2 9 AM CDT 09/16/2021 11:00 AM CDT us Gautam Cope MD LAB BLOOD ORDERABLES Final Resul t [facility] Department [place] [address] * (ABNORMAL) Comprehensive metabolic panel (09/16/2021 10:29 AM CDT) Sodium 143 135 - 145 mmol/L [facility] Comment:Testing performed by : [facility], [address] [place] [phone] Potassium, pl 4.7 3.3 - 4.9 mmol/L [facility] Comment:Testing performed by : [facility], [address] [place] [phone] Chloride 105 97 - 110 mmol/L [facility] Comment:Testing performed by : [facility], [address] [place] [phone] CO2 30 22 - 32 mmol/L [facility] Comment:Testing performed by : [facility], [address] [place] [phone] Anion gap 8 2 - 15 mmol/L [facility] Comment:Testing performed by : [facility], [address] [place] [phone] BUN 35(H) 8 - 25 mg/dL [facility] Comment:Testing performed by : [facility], [address] [place] [phone] Creatinine 1.60(H) 0.80 - 1.30 mg/dL [facility] Comment:Testing performed by : [facility], [address] [place] [phone] Glucose 113 70 - 199 mg/dL [facility] Comment: Interpretive Data [...] was last revised 2017. Testing performed by: [facility], [address] [place] [phone] Calcium 9.4 8.5 - 10.3 mg/dL [facility] Comment:Testing performed by : [facility], [address] [place] [phone] Bilirubin, total 0.3 0.1 - 1.2 mg/dL [facility] Comment:Testing performed by : [facility], [address] [place] [phone] Protein, pl 6.7 6.5 - 8.5 g/dL [facility] Comment:Testing performed by : [facility], [address] [place] [phone] Albumin 4.2 3.5 - 5.0 g/dL [facility] Comment:Testing performed by : [facility], [address] [place] [phone] Alk phos 123 40 - 130 Units/L [facility] Comment:Testing performed by : [facility], [address] [place] [phone] ALT 11 7 - 55 Units/L [facility] Comment:Testing performed by : [facility], [address] [place] [phone] AST 13 10 - 50 Units/L [facility] Comment:Testing performed by : [facility], [address] [place] [phone] Blood 09/16/2021 10:2 9 AM CDT 09/16/2021 10:33 AM CDT us Gautam Cope MD LAB BLOOD ORDERABLES Final Resul t [facility] Department [place] [address] * (ABNORMAL) CBC with auto differential (09/16/2021 10:29 AM CDT) WBC 10.4(H) 3.8 - 9.8 K/cumm [facility] Comment:Testing performed by : [facility], [address] [place] [phone] Hgb 12.5(L) 13.8 - 17.2 g/dL [facility] Comment:Testing performed by : [facility], [address] [place], [place] [phone] Hct 37.6(L) 40.7 - 50.3 % [facility] Comment:Testing performed by : [facility], [address] [place], [place] [phone] Plt 354 140 - 440 K/cumm [facility] Comment:Testing performed by : [facility], [address] [place], [place] [phone] MPV 7.9 6.8 - 10.4 fL [facility] Comment:Testing performed by : [place] [phone] RBC 4.27(L) 4.50 - 5.70 M/cumm [facility] Comment:Testing performed by : [place] [id number] MCV 88.0 80.0 - 97.6 fL [facility] Comment:Testing performed by : [facility], [address] [place], [place] [phone] MCH 29.3 26.7 - 33.7 pg [facility] Comment:Testing performed by : [place] [id number] MCHC 33.3 32.7 - 35.5 g/dL [facility] Comment:Testing performed by : [place] [id number] RDW CV 14.6 11.8 - 14.6 % [facility] Comment:Testing performed by : [facility], [address] [place], [place] [phone] NRBC abs 0.00 0.00 - 0.01 K/cumm [facility] Comment:Testing performed by : [place] [phone] Blood 09/16/2021 10:2 9 AM CDT 09/16/2021 10:33 AM CDT us Gautam Cope MD LAB BLOOD ORDERABLES Final Resul t [facility] Department [place] [address] * Lactate dehydrogenase (LD) (09/16/2021 10:29 AM CDT) Lactate dehydrogenase (LDH) 179 100 - 250 Units/L [facility] Comment:Testing performed by : [facility], [address] [facility] [phone] Blood 09/16/2021 10:2 9 AM CDT 09/16/2021 10:33 AM CDT us Gautam Cope MD LAB BLOOD ORDERABLES Final Resul t Performing Organization Address [facility] Co de Phone Number [facility] [place] [address] documented in this encounter Visit Diagnoses Diagnosis Prostate cancer (HCC)- Primary Malignant neoplasm of prostate documented in this encounter Orders Appointment Requests Count Last Ordered Date Fi rst Ordered Date ONCBCN CLINIC APPOINTMENT REQUEST 1 022 ONCBCN INJECTION APPOINTMENT REQUEST 1 10/2021 ONCBCN LAB APPOINTMENT 1 09/16/2021 documented in this encounter Care Teams Invasive Cardiologist Relationship Specialty Start Date End Date Kraig Ching MD [address] [facility] [address] [place] [address] PCP - General 07/10/16 Gautam Cope MD [address] [facility] [address] [place] [address] Medical Oncologist/Panel Raiser Operator Medical Oncology 08/18/18 Tramaine Roe MD [address] [facility] [address] [place] [address] Referring Physician Urology 08/18/18 Sukhwinder Uribe MD [address] [facility] [address] [place] [address] Consulting Physician Urology 08/18/18 Shay Guillermo MD [address] [facility] [address] [place] [address] Referring Physician Urology 08/18/18 Marsha Landis, RN Registered Nurse 11/17/18 documented as of this encounter
--- OUTSIDE RECORDS SUMMARY | 2024-03-31 11:30 | XMS_ITS | Encounter Summary ---
Author Organization [facility] Address [address] [place] [address] Phone Care Team Providers Care Director Of Digital Marketing Name Role Phone Kriag Ching MD Primary Care Provider [phone] Gautam Cope MD Unavailable Tramaine Roe MD Unavailable [phone] Sukhwinder Uribe MD Unavailable [phone] Shay Guillermo MD Unavailable [phone] Marsha Landis RN Unavailable Unavailab le Reason for Referral * MRI/CAT/PET Scan (Routine) - Closed Specialty Diagnoses / Procedures Referred By Saleem narvaez Referred To Contact Radiology Diagnoses Prostate cancer (HCC) Procedures CT chest without contrast Gautam Cope MD [address] [facility] [address] [place] [address] Phone: tel: fax: [address] [address] Referral ID Status Reason Start Date Expiration Date Visits Re quested Visits Authorized [id number] Closed 06/21/2021 07/21/2022 1 1 S REPRESENTATIVE JEWELRY Encounter Details Date Type Department Care Team (Late st Contact Info) Description 06/21/2021 Orders Only [facility] [address] [facility] 7th [place] [address] [place] [address] Muna Saleem RN Prostate cancer [...] prostate documented in this encounter Care Teams Director Of Digital Marketing Relationship Specialty Start Date End Date Kraig Ching MD [address] [place] [address] PCP - General 07/10/16 Gautam Cope MD [address] [place] [address] Medical Oncologist/Irrigation Supervisor Medical Oncology 08/18/18 Tramaine Roe MD [address] [place] [address] Referring Physician Urology 08/18/18 Sukhwinder Uribe MD [address] [place] [address] Consulting Physician Urology 08/18/18 Shay Guillermo MD [address] [place] [address] Referring Physician Urology 08/18/18 Marsha Landis, RN Registered Nurse 11/17/18 documented as of this encounter
--- OUTSIDE RECORDS SUMMARY | 2024-03-31 11:30 | XMS_ITS | Encounter Summary ---
Author Organization [facility] Address [address] [facility] [address] [place] [address] Care Team Providers Care Office Administration Name Role Phone Kraig Ching MD Primary Care Provider [phone] Gautam Cope MD Unavailable Tramaine Roe MD Unavailable [phone] Sukhwinder Uribe MD Unavailable Shay Guillermo MD Unavailable [phone] Marsha Landis RN Unavailable Unavailab le Encounter Details Date Type Department Care Team (Late st Contact Info) Description 05/26/2021 Telephone [facility] [address] [facility] [address] [place] [address] Kraig Ching MD [address] [facility] [address] [place], [place] [id number] Social History Tobacco Use Types Packs/Day Years [...] on file 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 Gender Identity Not on file Sexual [...] PM CST Refill sent Pt Pin needle RIBUTOR OPERATOR documented in this encounter Plan of [...] Chronic Care Management No change(03/23 1:47 PM DISTRIBUTOR OPERATOR) No Ingrid Oden RN Note: Problem: [...] documented as of this encounter Care Teams Office Administration Relationship Specialty Start Date End Date Kraig Ching MD [address] [facility] [address] [place] [address] PCP - General 07/10/16 Gautam Cope MD [address] [facility] [address] [place] [address] Medical Oncologist/Stage Electrician Medical Oncology 08/18/18 Tramaine Roe MD [address] [facility] [address] [place] [address] Referring Physician Urology 08/18/18 Sukhwinder Uribe MD [address] [facility] [address] [place] [address] Consulting Physician Urology 08/18/18 Shay Guillermo MD [address] [facility] [address] [place] [address] Referring Physician Urology 08/18/18 Marsha Landis, RN Registered Nurse 11/17/18 documented as of this encounter
--- OUTSIDE RECORDS SUMMARY | 2024-03-31 11:30 | XMS_ITS | Encounter Summary ---
Author Organization [facility] Address [address] [place] [address] Phone Care Team Providers Care Firebrick And Refractory Tile Repairer Name Role Phone Kraig Ching MD Primary Care Provider [phone] Gautam Cope MD Unavailable Tramaine Roe MD Unavailable [phone] Sukhwinder Uribe MD Unavailable [phone] Shay Guillermo MD Unavailable [phone] Marsha Landis RN Unavailable Unavailab le Reason for Visit * Reason Comments Injections eligard * Episode Based Medications (Routine) - Authorized Specialty Diagnoses / Procedures Referred By Contac t Referred To Contact Oncology Diagnoses Prostate cancer (HCC) Procedures [place] LEUPROLIDE ACETATE SUSPNSION Leuprolide Every 3 Months - Prostate Gautam Cope MD [address] [facility] [address] [place] [address] Phone: tel: fax: [facility] - Infusion [address] [facility] [place] Floor 5 [place] [address] Referral ID Status Reason Start Date Expiration Date V isits Requested Visits Authorized [id number] Authorized 09/06/2018 07/11/2024 1 50 Encounter Details Date Type Department Care Team (Late st Contact Info) Description 04/01/2021 11:00 AM FREIGHT COORDINATOR Infusion [facility] Oncology [address] [facility] Advanced Medicine 7th [place] [address] Prostate cancer (CMS/HCC) (HCC) (Primary Dx) Social [...] on file Legal Sex Male 4:46 PM FREIGHT COORDINATOR Gender Identity Not on file Sexual Orientation Not on file documented as of this encounter Nursing Notes * Nupur Wall, RN - 04/01/2021 11:00 AM CST Oncology Nursing Note [facility] David Wei is a [...] Ambulatory Accompanied by: Self Discharged To: Home GHT COORDINATOR documented in this encounter Plan of Treatment [...] Chronic Care Management No change(03/23 1:47 PM FREIGHT COORDINATOR) No Ingrid Oden, RN Note: Problem: Chronic [...] te cancer (HCC) Given 04/01/2021 10:29 AM FREIGHT COORDINATOR 22.5 mg Left Lower Abdomen documented in this encounter Orders Nursing Count Last Ordered Date First Orde red Date ONCBCN TREATMENT PARAMETERS 2 1 04/01/2021 Appointment Requests Count Last Ordered Date Fi rst Ordered Date ONCBCN INJECTION APPOINTMENT REQUEST 1 03/13 documented in this encounter Care Teams Firebrick And Refractory Tile Repairer Relationship Specialty Start Date End Date Kraig Ching MD [address] [facility] [address] [place] [address] PCP - General 07/10/16 Gautam Cope MD [address] [facility] [address] [place] [address] Medical Oncologist/Oracle Technical Architect Medical Oncology 08/18/18 Tramaine Roe MD [address] [facility] [address] [place] [address] Referring Physician Urology 08/18/18 Sukhwinder Uribe MD [address] [facility] [address] [place] [address] Consulting Physician Urology 08/18/18 Shay Guillermo MD [address] [facility] [address] [place] [address] Referring Physician Urology 08/18/18 Marsha Landis RN Registered Nurse 11/17/18 documented as of this encounter
--- OUTSIDE RECORDS SUMMARY | 2024-03-31 11:31 | XMS_ITS | Encounter Summary ---
Author Organization [facility] Address [address] [place] [address] Phone Care Team Providers Care Plastic Mixer Name Role Phone Kraig Ching MD Primary Care Provider [phone] Gautam Cope MD Unavailable Tramaine Roe MD Unavailable [phone] Sukhwinder Uribe MD Unavailable [phone] Shay Guillermo MD Unavailable [phone] Marsha Landis RN Unavailable Unavailab le Reason for Visit * Reason Comments Injections Eligard * Episode Based Medications (Routine) - Authorized Specialty Diagnoses / Procedures Referred By Contac t Referred To Contact Oncology Diagnoses Prostate cancer (HCC) Procedures [place] LEUPROLIDE ACETATE SUSPNSION Leuprolide Every 3 Months - Prostate Gautam Cope MD [address] [facility] [address] [place] [address] Phone: tel: fax: [facility] - Infusion [address] [facility] Floor 5 [place] [address] Referral ID Status Reason Start Date Expiration Date V isits Requested Visits Authorized [id number] Authorized 09/06/2018 07/11/2024 1 50 Encounter Details Date Type Department Care Team (Late st Contact Info) Description 01/07/2021 2:15 PM CDT Infusion [facility] Advanced Medicine 7th [place] [address] Prostate cancer (CMS/HCC) (HCC) (Primary Dx) Social [...] file Legal Sex Male 4:46 PM CAR RACER Gender Identity Not on file Sexual Orientation Not on file documented as of this encounter Nursing Notes * Harmony Dumont, SHEA - 01/07/2021 2:15 PM CDT Oncology Nursing Note [facility] David Wei is a 80 [...] Care Management No change(03/23 1:47 PM CAR RACER) No Ingrid Oden, RN Note: Problem: Chronic [...] 12/12 documented in this encounter Care Teams Plastic Mixer Relationship Specialty Start Date End Date Kraig Ching MD [address] [place] [address] PCP - General 07/10/16 Gautam Cope MD [address] [place] [address] Medical Oncologist/Bucket Wash Operator Medical Oncology 08/18/18 Tramaine Roe MD [address] [place] [address] Referring Physician Urology 08/18/18 Sukhwinder Uribe MD [address] [facility] [address] [place] [address] Consulting Physician Urology 08/18/18 Shay Guillermo MD [address] [facility] [address] [place] [address] Referring Physician Urology 08/18/18 Marsha Landis, RN Registered Nurse 11/17/18 documented as of this encounter
--- OUTSIDE RECORDS SUMMARY | 2024-03-31 11:31 | XMS_ITS | Encounter Summary ---
Author Organization [facility] Address [address] [place] [address] Phone Care Team Providers Care Meat Stuffer Name Role Phone Kraig Ching MD Primary Care Provider [phone] Gautam Cope MD Unavailable Tramaine Roe MD Unavailable [phone] Sukhwinder Uribe MD Unavailable [phone] Shay Guillermo MD Unavailable Marsha Landis RN Unavailable Unavailab le Reason for Visit * Episode Based Medications (Routine) - Authorized Specialty Diagnoses / Procedures Referred By Saleem t Referred To Contact Oncology Diagnoses Prostate cancer (HCC) Procedures ME LEUPROLIDE ACETATE SUSPNSION Leuprolide Every 3 Months - Prostate Gautam Cope MD [address] [facility] [address] [place] [address] Phone: tel: fax: [facility]fusion [address] [facility] [address] [place] [address] Referral ID Status Reason Start Date Expiration Date V isits Requested Visits Authorized [id number] Authorized 09/06/2018 07/11/2024 1 50 Encounter Details Date Type Department Care Team (Late st Contact Info) Description 01/07/2021 12:30 PM CDT Lab [facility] [address] [facility] 7th [place] [address] [place] [id number] Prostate cancer (CMS/HCC) (HCC) Social History Tobacco [...] file Legal Sex Male 4:46 PM AEROSPACE PHYSIOLOGICAL TECHNICIAN Gender Identity Not on file Sexual [...] Care Management No change(03/23 1:47 PM AEROSPACE PHYSIOLOGICAL TECHNICIAN) No Ingrid Oden, RN Note: Problem: [...] STAT 01/07/2021 12:44 PM CDT Prostate cancer ([facility]/HCC) (HCC) DIFFERENTIAL AUTO Routine 01/07/2021 12: 44 PM CDT Prostate cancer (CMS/HCC) (HCC) CBC WITH AUTO DIFFERENTIAL Routine 01/07/2021 12:44 PM CDT Prostate cancer (CMS/HCC) (HCC) PSA DIAGNOSTIC Routine 01/07/2021 12:44 PM CDT Prostate cancer ([facility]/HCC) (HCC) LACTATE DEHYDROGENASE Routine 01/07/2021 12:44 PM CDT Prostate cancer (CMS/HCC) (HCC) COMPREHENSIVE METABOLIC PANEL STAT 01/07/2021 12:44 PM CDT Prostate cancer (CMS/HCC) (HCC) documented in this encounter Results * (ABNORMAL) eGFR (01/07/2021 12:44 PM CDT) Pathologist [facility] eGFR 42(L) 90 - 130 mL/min/1.7 3 [...] was last reviewed 2020 Testing performed by: [facility], [address] [place] [phone] Blood 01/07/2021 12:4 4 PM CDT 01/07/2021 12:45 PM CDT us Gautam Cope MD LAB BLOOD ORDERABLES Final Resul t [facility] Department [place] [address] * (ABNORMAL) Differential, auto (01/07/2021 12:44 PM CDT) Neutrophil abs 10.6(H) 1.8 - 6.6 K/cumm [facility] Comment:Testing performed by : [facility], [address] [place] [phone] Lymphocyte abs 1.0(L) 1.2 - 3.3 K/cumm [facility] Comment:Testing performed by : [facility], [address] [place] [phone] Monocyte abs 0.8 0.2 - 1.2 K/cumm [facility] Comment:Testing performed by : [facility], [address] [place] [phone] Eosinophil abs 0.1 0.0 - 0.5 K/cumm [facility] Comment:Testing performed by : [facility], [address] [place] [phone] Basophil abs 0.1 0.0 - 0.2 K/cumm [facility] Comment:Testing performed by : [facility], [address] [place] [address] Neutrophil pct 84.5 % [facility] Comment: Interpretive Data Percent cell count reference ranges are not reported, since discordance with absolute values may lead to misinterpretation of CBC data. Current Interpretive Data was last revised on 2017. Testing performed by: [facility], [address] [place] [address] Lymphocyte pct 8.2 % [facility] Comment: Interpretive Data Percent cell count reference ranges are not reported, since discordance with absolute values may lead to misinterpretation of CBC data. Current Interpretive Data was last revised on 2017. Testing performed by: [facility], [address] [place] [address] Monocyte pct 6.1 % [facility] Comment:Testing performed by : [facility], [address] [place] [address] Eosinophil pct 0.6 % [facility] Comment:Testing performed by : [facility], [address] [place] [phone] Basophil pct 0.6 % [facility] Comment:Testing performed by : [facility], [address] [place] [address] Blood 01/07/2021 12:4 4 PM CDT 01/07/2021 12:45 PM CDT us Gautam Cope MD LAB BLOOD ORDERABLES Final Resul t Performing Organization Address [facility] de Phone Number [facility] Department [place] [address] * Lactate dehydrogenase (LD) (01/07/2021 12:44 PM CDT) Pathologist [facility] Lactate dehydrogenase (LDH) 177 100 - 250 Units/L [facility] Comment:Testing performed by : [facility], [address] [place] [phone] Blood 01/07/2021 12:4 4 PM CDT 01/07/2021 12:45 PM CDT Gautam Cope MD LAB BLOOD ORDERABLES Final Resul t Performing Organization Address [facility] de Phone Number [facility] Department [place] [address] * (ABNORMAL) CBC with auto differential (01/07/2021 12:44 PM CDT) Pathologist [facility] WBC 12.6(H) 3.8 - 9.8 K/cumm [facility] Comment:Testing performed by : [facility], [address] [place] [phone] Hgb 12.8(L) 13.8 - 17.2 g/dL [facility] Comment:Testing performed by : [facility], [address] [place] [address] Hct 38.4(L) 40.7 - 50.3 % [facility] Comment:Testing performed by : [facility], [address] [place] [phone] Plt 374 140 - 440 K/cumm [facility] Comment:Testing performed by : [facility], [address] [place] [address] MPV 7.4 6.8 - 10.4 fL [facility] Comment:Testing performed by : [facility], [address] [place] [address] RBC 4.30(L) 4.50 - 5.70 M/cumm [facility] Comment:Testing performed by : [facility], [address] [place] [address] MCV 89.2 80.0 - 97.6 fL [facility] Comment:Testing performed by : [facility], [address] [place] [address] MCH 29.6 26.7 - 33.7 pg [facility] Comment:Testing performed by : [facility], [address] [place] [address] MCHC 33.2 32.7 - 35.5 g/dL [facility] Comment:Testing performed by : [facility], [address] [place] [address] RDW CV 14.4 11.8 - 14.6 % [facility] Comment:Testing performed by : [facility], [address] [place] [address] NRBC abs 0.00 0.00 - 0.01 K/cumm [facility] Comment:Testing performed by : [facility], [address] [place] [phone] Blood 01/07/2021 12:4 4 PM CDT 01/07/2021 12:45 PM CDT us Gautam Cope MD LAB BLOOD ORDERABLES Final Resul t [facility] Department [place] [address] * (ABNORMAL) Comprehensive metabolic panel (01/07/2021 12:44 PM CDT) Sodium 138 135 - 145 mmol/L [facility] Comment:Testing performed by : [facility], [address] [place] [phone] Potassium, pl 3.8 3.3 - 4.9 mmol/L [facility] Comment:Testing performed by : [facility], [address] [place] [phone] Chloride 99 97 - 110 mmol/L [facility] Comment:Testing performed by : [facility], [address] [place] [phone] CO2 29 22 - 32 mmol/L [facility] Comment:Testing performed by : [facility], [address] [place] [address] Anion gap 10 2 - 15 mmol/L [facility] Comment:Testing performed by : [facility], [address] [place] [phone] BUN 32(H) 8 - 25 mg/dL [facility] Comment:Testing performed by : [facility], [address] [place] [phone] Creatinine 1.54(H) 0.80 - 1.30 mg/dL [facility] Comment:Testing performed by : [address] [address] Glucose 296(H) 70 - 199 mg/dL [facility] [...] was last revised 2017. Testing performed by: [facility], [address] [place] [phone] Calcium 8.8 8.5 - 10.3 mg/dL [facility] Comment:Testing performed by : [facility], [address] [place] [address] Bilirubin, total 0.3 0.1 - 1.2 mg/dL [facility] Comment:Testing performed by : [address] [address] Protein, pl 6.4(L) 6.5 - 8.5 g/dL [facility] Comment:Testing performed by : [facility], [address] [place] [address] Albumin 3.9 3.5 - 5.0 g/dL [facility] Comment:Testing performed by : [facility], [address] [place] [address] Alk phos 118 40 - 130 Units/L [facility] Comment:Testing performed by : [facility], [address] [place] [phone] ALT 12 7 - 55 Units/L [facility] Comment:Testing performed by : [facility], [address] [place] [phone] AST 11 10 - 50 Units/L [facility] Comment:Testing performed by : [facility], [address] [place] [address] Blood 01/07/2021 12:4 4 PM CDT 01/07/2021 12:45 PM CDT us Gautam Cope MD LAB BLOOD ORDERABLES Final Resul t [facility] Department [place] [address] * PSA diagnostic (01/07/2021 12:44 PM CDT) PSA-Total <0.10 <=6.20 ng/mL [facility] Comment: Interpretive Data ?AGE ? SEX ?REFERENCE [...] ORDERABLES Final Resul t [facility] Department [place] [address] documented in this encounter Visit Diagnoses Diagnosis Prostate cancer (HCC) Malignant neoplasm of prostate documented in this encounter Orders Appointment Requests Count Last Ordered Date Fi rst Ordered Date ONCBCN LAB APPOINTMENT 1 01/07/2021 documented in this encounter Care Teams Meat Stuffer Relationship Specialty Start Date End Date Kraig Ching MD [address] [place] [address] PCP - General 07/10/16 Gautam Cope MD [address] [place] [address] Medical Oncologist/Rail Car Painter/Sandblaster Medical Oncology 08/18/18 Tramaine Roe MD [address] [place] [address] Referring Physician Urology 08/18/18 Sukhwinder Uribe MD [address] [place] [address] Consulting Physician Urology 08/18/18 Shay Guillermo MD [address] [place] [address] Referring Physician Urology 08/18/18 Marsha Landis, RN Registered Nurse 11/17/18 documented as of this encounter
--- OUTSIDE RECORDS SUMMARY | 2024-03-31 11:31 | XMS_ITS | Encounter Summary ---
Author Organization [facility] Address [address] [place] [address] Phone Care Team Providers Care Heat Treating Bluer Name Role Phone Kraig Ching MD Primary Care Provider [phone] Gautam Cope MD Unavailable Tramaine Roe MD Unavailable [phone] Sukhwinder Uribe MD Unavailable [phone] Shay Guilelrmo MD Unavailable [phone] Marsha Landis RN Unavailable Unavailab le Encounter [...] file Legal Sex Male 4:46 PM IT SECURITY ENGINEER Gender Identity Not on file Sexual [...] Care Management No change(03/23 1:47 PM IT SECURITY ENGINEER) No Ingrid Oden, RN Note: Problem: [...] on filedocumented in this encounter Care Teams Heat Treating Bluer Relationship Specialty Start Date End Date Kraig Ching MD [address] [place] [address] PCP - General 07/10/16 Gautam Cope MD [address] [place] [address] Medical Oncologist/Strategic Development Manager Medical Oncology 08/18/18 Tramaine Roe MD [address] [place] [address] Referring Physician Urology 08/18/18 Sukhwinder Uribe MD [address] [place] [address] Consulting Physician Urology 08/18/18 Shay Guillermo MD [address] [place] [address] Referring Physician Urology 08/18/18 Marsha Landis, RN Registered Nurse 11/17/18 documented as of this encounter
--- OUTSIDE RECORDS SUMMARY | 2024-03-31 11:31 | XMS_ITS | Encounter Summary ---
Author Organization [facility] Address [address] [facility] [address] [place] [address] Care Team Providers Care Gas Welding Equipment Mechanic Name Role Phone Kraig Ching MD Primary Care Provider [phone] Gautam Cope MD Unavailable Tramaine Roe MD Unavailable [phone] Sukhwinder Uribe MD Unavailable [phone] Shay Guillermo MD Unavailable [phone] Marsha Landis RN Unavailable Unavailab le Encounter Details Date Type Department Care Team (Late st Contact Info) Description 12/26/2020 10:45 AM CDT Office Visit [facility] [address] [facility] [address] [place] [address] Kraig Ching MD [address] [facility] [address] [place] [address] Hypertensive kidney disease with stage [...] file Legal 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 * Assessment & Plan Note - Kraig Ching MD - 12/26/2020 6:28 AM CDT Associated Problem(s): Hyperlipidemia associated with type 2 diabetes mellitus ([facility]) HgbA1C was elevated at 7.8 at last [...] Chronic Care Management No change(03/23 1:47 PM FLIGHT ENGINEER HELICOPTER) No Ingrid Oden, RN Note: Problem: Chronic [...] 11:31 AM CDT) Albumin Ur 209.6 mg/L [facility] Comment: Interpretive Data No reference range established. Current interpretive data was last revised 2018. Creatinine Ur 121.9 mg/dL [facility] Comment: Interpretive Data No reference range established. Current interpretive data was last revised 2018. Albumin Creatinine Ratio, Ur 172(H) 1 - 29 mg/g [facility] Urine 12/26/2020 11:3 1 AM CDT 12/26/2020 2:25 PM CDT us Kraig Ching MD LAB URINE ORDERABLES Final Re sult [facility] One [facility] Department [place] [address] * (ABNORMAL) Hemoglobin A1c (12/26/2020 11:31 AM CDT) Hgb A1C 11.9(H) 4.0 - 5.6 % [facility] Estimated Average Glucose 295 mg/dL [facility] Comment: The ADA [...] MD LAB BLOOD ORDERABLES Final Re sult [facility] One [facility] Department [place] [address] * (ABNORMAL) Lipid panel (12/26/2020 11:31 AM [...] on 2017. HDL 34(L) >=40 mg/dL [facility] Comment: [...] 2017. LDL, calculated See Comment <=129 [facility] Comment: Unable to calculate LDL due to [...] revised on 2017. Non-HDL Cholesterol 229 mg/dL [facility] Comment: Interpretive Data Ages < or = [...] last revised on 2017. Chol/HDL ratio 8 [facility] Blood 12/26/2020 11:3 1 AM CDT 12/26/2020 2:25 PM CDT Kraig Ching MD LAB BLOOD ORDERABLES Final Re sult [facility] One [facility] Department [place] [address] * (ABNORMAL) Comprehensive metabolic panel (12/26/2020 11:31 AM CDT) Sodium 137 135 - 145 mmol/L [facility] Potassium, pl 3.9 3.3 - 4.9 mmol/L [facility] Chloride 98 97 - 110 mmol/L [facility] CO2 29 22 - 32 mmol/L [facility] Anion gap 10 2 - 15 mmol/L [facility] BUN 37(H) 8 - 25 mg/dL [facility] Creatinine 2.13(H) 0.80 - 1.30 mg/dL [facility] Glucose 221(H) 70 - 199 mg/dL [facility] Comment: Interpretive Data Fasting glucose [...] Calcium 9.4 8.5 - 10.3 mg/dL [facility] Bilirubin, total 0.5 0.1 - 1.2 mg/dL [facility] Protein, pl 7.0 6.5 - 8.5 g/dL [facility] Albumin 4.1 3.5 - 5.0 g/dL [facility] Alk phos 125 40 - 130 Units/L [facility] ALT 18 7 - 55 Units/L [facility] AST 14 10 - 50 Units/L [facility] Blood 12/26/2020 11:3 1 AM CDT 12/26/2020 2:25 PM CDT Kraig Ching MD LAB BLOOD ORDERABLES Final Re sult [facility] One [facility] Department [place] [address] documented in this encounter Visit Diagnoses Diagnosis [...] 12/26/2020 documented in this encounter Care Teams Gas Welding Equipment Mechanic Relationship Specialty Start Date End Date Kraig Ching MD [address] [facility] [address] [place] [address] PCP - General 07/10/16 Gautam Cope MD [address] [facility] [address] [place] [address] Medical Oncologist/Correctional Officer Sergeant Medical Oncology 08/18/18 Tramaine Roe MD [address] [facility] [address] [place] [address] Referring Physician Urology 08/18/18 Sukhwinder Uribe MD [address] [facility] [address] [place] [address] Consulting Physician Urology 08/18/18 Shay Guillermo MD [address] [facility] [address] [place] [address] Referring Physician Urology 08/18/18 Marsha Landis, RN Registered Nurse 11/17/18 documented as of this encounter
--- OUTSIDE RECORDS SUMMARY | 2024-03-31 11:31 | XMS_ITS | Encounter Summary ---
Author Organization [facility] Address [address] [facility] [address] [place] [address] Care Team Providers Care Scientific Artist Name Role Phone Kraig Ching MD Primary Care Provider [phone] Gautam Cope MD Unavailable Tramaine Roe MD Unavailable [phone] Sukhwinder Uribe MD Unavailable [phone] Shay Guillermo MD Unavailable Marsha Landis RN Unavailable Unavailab le Encounter Details Date Type Department Care Team (Late st Contact Info) Description 02/28/2021 Orders Only [facility] [address] [facility] [address] [place] [id number] Kraig Ching MD [address] 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 Minimize further functional decline 2. Maximize quality of life 3. Control pain Strategies: - Activity/exercise program recommendation - Conservative stepwise pain medicine strategy with multi-disciplinary approach - Recommend healthy lifestyle strategies and compensatory methods as needed documented as of this encounter Visit Diagnoses Not on filedocumented in this encounter Care Teams Scientific Artist Relationship Specialty Start Date End Date Kraig Ching MD [address] [place] [address] PCP - General 07/10/16 Gautam Cope MD [address] [place] [address] Medical Oncologist/Plastics Fitter Medical Oncology 08/18/18 Tramaine Roe MD [address] [place] [address] Referring Physician Urology 08/18/18 Sukhwinder Uribe MD [address] [place] [address] Consulting Physician Urology 08/18/18 Shay Guillermo MD [address] [place] [address] Referring Physician Urology 08/18/18 Marsha Landis, RN Registered Nurse 11/17/18 documented as of this encounter
--- OUTSIDE RECORDS SUMMARY | 2024-03-31 11:31 | XMS_ITS | Encounter Summary ---
Author Organization 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 Minimize further functional decline 2. Maximize quality of life 3. Control pain Strategies: - Activity/exercise program recommendation - Conservative stepwise pain medicine strategy with multi-disciplinary approach - Recommend healthy lifestyle strategies and compensatory methods as needed documented as of this encounter Visit Diagnoses Not on filedocumented in this encounter Care Teams Head Operator Sulfide Relationship Specialty Start Date End Date Kraig Ching MD [address] [facility] [address] [place] [address] PCP - General 07/10/16 Gautam Cope MD [address] [facility] [address] [place] [address] Medical Oncologist/Personnel Scheduler Medical Oncology 08/18/18 Tramaine Roe MD [address] [facility] [address] [place] [address] Referring Physician Urology 08/18/18 Sukhwinder Uribe MD [address] [facility] [address] [place] [address] Consulting Physician Urology 08/18/18 Shay Guillermo MD [address] [facility] [address] [place] [address] Referring Physician Urology 08/18/18 Marsha Landis, RN Registered Nurse 11/17/18 documented as of this encounter
--- OUTSIDE RECORDS SUMMARY | 2024-03-31 11:31 | XMS_ITS | Encounter Summary ---
Author Organization [facility] Address [address] [place] [address] Phone Care Team Providers Care Mastic Man Name Role Phone Kraig Ching MD Primary Care Provider [phone] Gautam Cope MD Unavailable Tramaine Roe MD Unavailable [phone] Sukhwinder Uribe MD Unavailable [phone] Shay Guillermo MD Unavailable [phone] Marsha Landis RN Unavailable Unavailab le Encounter Details Date Type Department Care Team (Late st Contact Info) Description 03/28/2021 Orders Only [facility] Oncology [address] [facility] Advanced Medicine 7th [place] [address] [place] [phone] Muna Saleem RN Prostate cancer (CMS/HCC) (HCC) [...] on file 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 Gender Identity Not on file Sexual Orientation [...] Chronic Care Management No change(03/23 1:47 PM BUTCHER SCULLION) No Ingrid Oden, RN Note: Problem: Chronic [...] Final Resul t [facility] [place] [address] * (ABNORMAL) Comprehensive metabolic panel (06/24/2021 9:40 AM CDT) Sodium 142 135 - 145 mmol/L [facility] Comment:Testing performed by : [facility], [address] [place] [phone] Potassium, pl 4.9 3.3 - 4.9 mmol/L [facility] Comment:Testing performed by : [facility], [address] [place] [phone] Chloride 102 97 - 110 mmol/L [facility] Comment:Testing performed by : [facility], [address] [place] [phone] CO2 31 22 - 32 mmol/L [facility] Comment:Testing performed by : [facility], [address] [place] [phone] Anion gap 9 2 - 15 mmol/L [facility] Comment:Testing performed by : [address] [phone] BUN 48(H) 8 - 25 mg/dL [facility] Comment:Testing performed by : [facility], [address] [place] [phone] Creatinine 2.25(H) 0.80 - 1.30 mg/dL [facility] Comment:Testing performed by : [facility], [address] [place] [phone] Glucose 176 70 - 199 mg/dL [facility] Comment: Interpretive Data Fasting [...] was last revised 2017. Testing performed by: [address] [address] Calcium 9.3 8.5 - 10.3 mg/dL [facility] Comment:Testing performed by : [facility], [address] [place] [phone] Bilirubin, total 0.3 0.1 - 1.2 mg/dL [facility] Comment:Testing performed by : [facility], [address] [place] [phone] Protein, pl 6.9 6.5 - 8.5 g/dL [facility] Comment:Testing performed by : [facility], [address] [place] [phone] Albumin 4.2 3.5 - 5.0 g/dL [facility] Comment:Testing performed by : [facility], [address] [place] [phone] Alk phos 119 40 - 130 Units/L [facility] Comment:Testing performed by : [facility], [address] [place] [phone] ALT 13 7 - 55 Units/L [facility] Comment:Testing performed by : [facility], [address] [place] [phone] AST 13 10 - 50 Units/L [facility] Comment:Testing performed by : [facility], [address] [place] [phone] Blood 06/24/2021 9:40 AM CDT 06/24/2021 9:41 AM CDT us Gautam Cope MD LAB BLOOD ORDERABLES Final Resul t [facility] [place] [address] * (ABNORMAL) CBC with auto differential (06/24/2021 9:40 AM CDT) WBC 9.8 3.8 - 9.8 K/cumm [facility] Comment:Testing performed by : [facility], [address] [place] [phone] Hgb 12.9(L) 13.8 - 17.2 g/dL [facility] Comment:Testing performed by : [facility], [address] [place] [phone] Hct 38.7(L) 40.7 - 50.3 % [facility] Comment:Testing performed by : [facility], [address] [place], [place] [phone] Plt 325 140 - 440 K/cumm [facility] Comment:Testing performed by : [facility], [address] [place] [phone] MPV 7.6 6.8 - 10.4 fL [facility] Comment:Testing performed by : [facility], [address] [place], [place] [phone] RBC 4.41(L) 4.50 - 5.70 M/cumm [facility] Comment:Testing performed by : [facility], [address] [place], [place] [phone] MCV 87.7 80.0 - 97.6 fL [facility] Comment:Testing performed by : [address] [phone] MCH 29.2 26.7 - 33.7 pg [facility] Comment:Testing performed by : [facility], [address] [place] [phone] MCHC 33.3 32.7 - 35.5 g/dL [facility] Comment:Testing performed by : [facility], [address] [place], [place] [phone] RDW CV 14.3 11.8 - 14.6 % [facility] Comment:Testing performed by : [address] [address] NRBC abs 0.00 0.00 - 0.01 K/cumm [facility] Comment:Testing performed by : [facility], [address] [place] [phone] Blood 06/24/2021 9:40 AM CDT 06/24/2021 9:41 AM CDT us Gautam Cope MD LAB BLOOD ORDERABLES Final Resul t [facility] [place] [address] * Lactate dehydrogenase (LD) (06/24/2021 9:40 AM CDT) Lactate dehydrogenase (LDH) 173 100 - 250 Units/L [facility] Comment:Testing performed by : [facility], [address] [facility] [phone] Blood 06/24/2021 9:40 AM CDT 06/24/2021 9:41 AM CDT us Gautam Cope MD LAB BLOOD ORDERABLES Final Resul t [facility] Department of Laboratories [place], [place] [id number] documented in this encounter Visit Diagnoses Diagnosis Prostate cancer (HCC)- Primary Malignant neoplasm of prostate documented in this encounter Orders Appointment Requests Count Last Ordered Date Fi rst Ordered Date ONCBCN CLINIC APPOINTMENT REQUEST 1 022 ONCBCN INJECTION APPOINTMENT REQUEST 1 06/10 ONCBCN LAB APPOINTMENT 1 06/24/2021 documented in this encounter Care Teams Mastic Man Relationship Specialty Start Date End Date Kraig Ching MD [address] [place] [address] PCP - General 07/10/16 Gautam Coep MD [address] [facility] [address] [place] [address] Medical Oncologist/Stunt Double Medical Oncology 08/18/18 Tramaine Roe MD [address] [facility] [address] [address] [place] [address] Referring Physician Urology 08/18/18 Sukhwinder Uribe MD [address] [place] [address] Consulting Physician Urology 08/18/18 Shay Guillermo MD [address] [facility] [address] [place] [address] Referring Physician Urology 08/18/18 Marsha Landis, RN Registered Nurse 11/17/18 documented as of this encounter
--- OUTSIDE RECORDS SUMMARY | 2024-03-31 11:31 | XMS_ITS | Encounter Summary ---
Author Organization [facility] Address [address] [place] [address] Phone Care Team Providers Care Manager Planning Name Role Phone Kraig Ching MD Primary Care Provider [phone] Gautam Cope MD Unavailable Tramaine Roe MD Unavailable [phone] Sukhwinder Uribe MD Unavailable [phone] Shay Guillermo MD Unavailable [phone] Marsha Landis RN Unavailable Unavailab le Encounter Details Date Type Department Care Team (Late st Contact Info) Description 03/31/2021 Orders Only [facility] Oncology [address] [facility] Advanced Medicine 7th [place] [address] [place] [phone] Muna Saleem RN Prostate cancer (CMS/HCC) (HCC) [...] on file 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 Minimize further functional decline 2. Maximize quality of life 3. Control pain Strategies: - Activity/exercise program recommendation - Conservative stepwise pain medicine strategy with multi-disciplinary approach - Recommend healthy lifestyle strategies and compensatory methods as needed documented as of this encounter Results * (ABNORMAL) Hemoglobin A1c (04/01/2021 9:38 AM PERCH MENDER) Hgb A1C 10.6(H) 4.0 - 5.6 % [facility] Estimated Average Glucose 258 mg/dL [facility] Comment: The ADA recommends reporting an estimated Average Glucose (eAG) with all Hemoglobin A1c results using the equation derived from a study of 507 normal and diabetic adults. ??Minority populations were underrepresented and children were not included. ?? (Diabetes Care 2020; 43(S1): S66-S76). ??The eAG is not equivalent to a fasting glucose. Blood 04/01/2021 9:38 AM PERCH MENDER 04/01/2021 9:51 AM PERCH MENDER us Gautam Cope MD LAB BLOOD ORDERABLES Final Resul t [facility] Department [place] [address] documented in this encounter Visit Diagnoses Diagnosis Prostate cancer (HCC)- Primary Malignant neoplasm of prostate documented in this encounter Care Teams Manager Planning Relationship Specialty Start Date End Date Kraig Ching MD [address] [facility] [address] [place] [address] PCP - General 07/10/16 Gautam Cope MD [address] [facility] [address] [place] [address] Medical Oncologist/Strategic Planning Consultant Medical Oncology 08/18/18 Tramaine Roe MD [address] [facility] [address] [place] [address] Referring Physician Urology 08/18/18 Sukhwinder Uribe MD [address] [facility] [address] [place] [address] Consulting Physician Urology 08/18/18 Shay Guillermo MD [address] [facility] [address] [place] [address] Referring Physician Urology 08/18/18 Marsha Landis RN Registered Nurse 11/17/18 documented as of this encounter
--- OUTSIDE RECORDS SUMMARY | 2024-03-31 11:31 | XMS_ITS | Encounter Summary ---
Author Organization [facility] Address [address] [place] [address] Phone Care Team Providers Care Cell Lead Name Role Phone Kraig Ching MD Primary Care Provider [phone] Gautam Cope MD Unavailable Tramaine Roe MD Unavailable Sukhwinder Uribe MD Unavailable [phone] Shay Guillermo MD Unavailable [phone] Marsha Landis RN Unavailable Unavailab le Reason for Visit * Episode Based Medications (Routine) - Authorized Specialty Diagnoses / Procedures Referred By Saleem narvaez Referred To Contact Oncology Diagnoses Prostate cancer (HCC) Procedures CT LEUPROLIDE ACETATE SUSPNSION Leuprolide Every 3 Months - Prostate Gautam Cope MD [address] [facility] [address] [place] [address] Phone: tel: fax: [facility] [address] [facility] Floor 5 [place] [address] Referral ID Status Reason Start Date Expiration Date V isits Requested Visits Authorized [id number] Authorized 09/06/2018 07/11/2024 1 50 Encounter Details Date Type Department Care Team (Late st Contact Info) Description 10/15/2020 11:15 AM CDT Office Visit [facility] Oncology [address] [place] [address] 7th [place] [address] [place] [phone] Gautam Cope MD [address] [facility] [address] [place] [address] Prostate cancer (CMS/HCC) (Primary Dx) Social History [...] on file 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 thermostatic controls supervisor GLORIA/malia documented in this encounter Plan of [...] Chronic Care Management No change(03/23 1:47 PM BOILER TESTING TECHNICIAN) No Ingrid Oden RN Note: Problem: [...] PM CDT) PSA-Total <0.10 <=6.20 ng/mL [facility] Comment: [...] LAB BLOOD ORDERABLES Final Resul t [facility] [place] [address] * (ABNORMAL) Comprehensive metabolic panel (01/07/2021 12:44 PM CDT) Sodium 138 135 - 145 mmol/L [facility] Comment:Testing performed by : [facility], [address] [place] [phone] Potassium, pl 3.8 3.3 - 4.9 mmol/L [facility] Comment:Testing performed by : [facility], [address] [place] [phone] Chloride 99 97 - 110 mmol/L [facility] Comment:Testing performed by : [facility], [address] [place] [phone] CO2 29 22 - 32 mmol/L [facility] Comment:Testing performed by : [facility], [address] [place] [phone] Anion gap 10 2 - 15 mmol/L [facility] Comment:Testing performed by : [facility], [address] [place] [phone] BUN 32(H) 8 - 25 mg/dL [facility] Comment:Testing performed by : [facility], [address] [place] [phone] Creatinine 1.54(H) 0.80 - 1.30 mg/dL [facility] Comment:Testing performed by : [facility], [address] [place] [phone] Glucose 296(H) 70 - 199 mg/dL [facility] Comment: Interpretive Data Fasting glucose >/= 126 [...] was last revised 2017. Testing performed by: [facility], [address] [place] [phone] Calcium 8.8 8.5 - 10.3 mg/dL [facility] Comment:Testing performed by : [facility], [address] [place] [phone] Bilirubin, total 0.3 0.1 - 1.2 mg/dL [facility] Comment:Testing performed by : [facility], [address] [place] [phone] Protein, pl 6.4(L) 6.5 - 8.5 g/dL [facility] Comment:Testing performed by : [facility], [address] [place] [phone] Albumin 3.9 3.5 - 5.0 g/dL [facility] Comment:Testing performed by : [facility], [address] [place] [phone] Alk phos 118 40 - 130 Units/L [facility] Comment:Testing performed by : [facility], [address] [place] [phone] ALT 12 7 - 55 Units/L [facility] Comment:Testing performed by : [facility], [address] [place] [phone] AST 11 10 - 50 Units/L [facility] Comment:Testing performed by : [facility], [address] [place] [phone] Blood 01/07/2021 12:4 4 PM CDT 01/07/2021 12:45 PM CDT us Gautam Cope MD LAB BLOOD ORDERABLES Final Resul t [facility] [place] [address] * (ABNORMAL) CBC with auto differential (01/07/2021 12:44 PM CDT) WBC 12.6(H) 3.8 - 9.8 K/cumm [facility] Comment:Testing performed by : [facility], [address] [place], [place] [phone] Hgb 12.8(L) 13.8 - 17.2 g/dL [facility] Comment:Testing performed by : [facility], [address] [place] [address] Hct 38.4(L) 40.7 - 50.3 % [facility] Comment:Testing performed by : [facility], [address] [place] [address] Plt 374 140 - 440 K/cumm [facility] Comment:Testing performed by : [facility], [address] [place] [address] MPV 7.4 6.8 - 10.4 fL [facility] Comment:Testing performed by : [place] [address] RBC 4.30(L) 4.50 - 5.70 M/cumm [facility] Comment:Testing performed by : [facility], [address] [place] [address] MCV 89.2 80.0 - 97.6 fL [facility] Comment:Testing performed by : [place] [address] MCH 29.6 26.7 - 33.7 pg [facility] Comment:Testing performed by : [place] [address] MCHC 33.2 32.7 - 35.5 g/dL [facility] Comment:Testing performed by : [facility], [address] [place] [address] RDW CV 14.4 11.8 - 14.6 % [facility] Comment:Testing performed by : [place] [address] NRBC abs 0.00 0.00 - 0.01 K/cumm [facility] Comment:Testing performed by : [place] [phone] Blood 01/07/2021 12:4 4 PM CDT 01/07/2021 12:45 PM CDT us Gautam Cope MD LAB BLOOD ORDERABLES Final Resul t Performing Organization Address [facility] Co de Phone Number [facility] [place] [address] * Lactate dehydrogenase (LD) (01/07/2021 12:44 PM CDT) Lactate dehydrogenase (LDH) 177 100 - 250 Units/L [facility] Comment:Testing performed by : [facility], [address] [place] [phone] Blood 01/07/2021 12:4 4 PM CDT 01/07/2021 12:45 PM CDT us Gautam Cope MD LAB BLOOD ORDERABLES Final Resul t Performing Organization Address [facility] de Phone Number [facility] [place] [address] * (ABNORMAL) Vitamin D 25 hydroxy (10/15/2020 10:32 AM CDT) Pathologist [facility] Vitamin D 25-OH 23(L) 30 - 80 ng/mL [facility] Blood specimen (specimen) 10/15/2020 10:32 AM CDT 10/15/2020 10:53 AM CDT us Gautam Cope MD LAB BLOOD ORDERABLES Final Resul t Performing Organization Address [facility] Co de Phone Number [facility] [address] [place] [address] documented in this encounter Visit Diagnoses Diagnosis Prostate cancer (HCC)- Primary Malignant neoplasm of prostate documented in this encounter Orders Appointment Requests Count Last Ordered Date Fi rst Ordered Date ONCBCN CLINIC APPOINTMENT REQUEST 2 021 10/15/2020 ONCBCN INJECTION APPOINTMENT REQUEST 1 12/12 ONCBCN LAB APPOINTMENT 1 01/07/2021 documented in this encounter Care Teams Cell Lead Relationship Specialty Start Date End Date Kraig Ching MD [address] [place] [address] PCP - General 07/10/16 Gautam Cope MD [address] [place] [address] Medical Oncologist/Requisition Approver Medical Oncology 08/18/18 Tramaine Roe MD [address] [place] [address] Referring Physician Urology 08/18/18 Sukhwinder Uribe MD [address] [place] [address] Consulting Physician Urology 08/18/18 Shay Guillermo MD [address] [place] [address] Referring Physician Urology 08/18/18 Marsha Landis, RN Registered Nurse 11/17/18 documented as of this encounter
--- OUTSIDE RECORDS SUMMARY | 2024-03-31 11:31 | XMS_ITS | Encounter Summary ---
Author Organization [facility] Address [address] [facility] [address] [place] [address] Care Team Providers Care Owner Spa Director Name Role Phone Kraig Ching MD Primary Care Provider [phone] Gautam Cope MD Unavailable Tramaine Roe MD Unavailable [phone] Sukhwinder Uribe MD Unavailable [phone] Shay Guillermo MD Unavailable [phone] Marsha Landis RN Unavailable Unavailab le Reason for Visit * Reason Onset Date Comments Abdominal Pain 09/20/2020 Encounter Details Date Type Department Care Team (Late st Contact Info) Description 09/20/2020 Nurse Triage [facility] [address] [facility] [address] [place] [phone] Kraig Ching MD [address] [facility] [address] [place], [place] [id number] Social History Tobacco Use Types Packs/Day Years [...] file 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 Requesting prescription Caller's Callback #: [phone] Additional Comments: Patient was diagnosed with diverticulitis in the past and thinks this is a flare up. Did you relay expectation for call back (weatherstrip machine operator: Red Flag 10-15 min; non- emergent up [...] to monitor diabetes and kidney status, etc. [facility] Chronic Pain Care Plan Chronic Care Management No change(03/23 1:47 PM BLOW UP OPERATOR) No Ingrid Oden RN Note: Problem: Chronic Pain Goals: 1. Minimize further functional decline 2. Maximize quality of life 3. Control pain Strategies: - Activity/exercise program recommendation - Conservative stepwise pain medicine strategy with multi-disciplinary approach - Recommend healthy lifestyle strategies and compensatory methods as needed documented as of this encounter Visit Diagnoses Not on filedocumented in this encounter Care Teams Owner Spa Director Relationship Specialty Start Date End Date Kraig Ching MD [address] [facility] [address] [place] [address] PCP - General 07/10/16 Gautam Cope MD [address] [facility] [address] [place] [address] Medical Oncologist/Well Reactivator Operator Medical Oncology 08/18/18 Tramaine Roe MD [address] [place] [address] [id number] [place] [address] Referring Physician Urology 08/18/18 Sukhwinder Uribe MD [address] [address] Consulting Physician Urology 08/18/18 Shay Guillermo MD [id number] [place] [address] Referring Physician Urology 08/18/18 Marsha Landis RN Registered Nurse 11/17/18 documented as of this encounter
--- OUTSIDE RECORDS SUMMARY | 2024-03-31 11:31 | XMS_ITS | Encounter Summary ---
Author Organization [facility] Address [address] [place] [address] Phone Care Team Providers Care Blasting Contract Man Name Role Phone Kraig Ching MD Primary Care Provider [phone] Gautam Cope MD Unavailable Tramaine Roe MD Unavailable [phone] Sukhwinder Uribe MD Unavailable [phone] Shay Guillermo MD Unavailable [phone] Marsha Landis RN Unavailable Unavailab le Encounter Details Date Type Department Care Team (Late st Contact Info) Description 10/15/2020 10:30 AM CDT Lab [facility] [address] [facility] 7th [place] [address] [place] [address] Prostate cancer (CMS/HCC) Social History [...] file 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 Gender Identity Not on file [...] Care Management No change(03/23 1:47 PM SCRAP HOIST OPERATOR) No Ingrid Oden, SHEA Note: Problem: [...] 10/15/2020 10: 32 AM CDT Prostate cancer ([facility]/HCC) CBC WITH AUTO DIFFERENTIAL Routine 10/15/2020 10:32 AM CDT Prostate cancer ([facility]/HCC) VITAMIN D 25 HYDROXY Routine 10/15/2020 10:32 AM CDT Prostate cancer ([facility]/HCC) PSA DIAGNOSTIC Routine 10/15/2020 10:32 AM CDT Prostate cancer ([facility]/HCC) LACTATE DEHYDROGENASE Routine 10/15/2020 10:32 AM CDT Prostate cancer ([facility]/HCC) COMPREHENSIVE METABOLIC PANEL STAT 10/15/2020 10:32 AM CDT Prostate cancer ([facility]/HCC) documented in this encounter Results * (ABNORMAL) Differential, auto (10/15/2020 10:32 AM CDT) Neutrophil abs 8.1(H) 1.8 - 6.6 K/cumm [facility] Comment:Testing performed by : [facility], [address] [place] [phone] Lymphocyte abs 1.8 1.2 - 3.3 K/cumm [facility] Comment:Testing performed by : [facility], [address] [place] [phone] Monocyte abs 0.9 0.2 - 1.2 K/cumm [facility] Comment:Testing performed by : [facility], [address] [place] [phone] Eosinophil abs 0.2 0.0 - 0.5 K/cumm [facility] Comment:Testing performed by : [facility], [address] [place] [phone] Basophil abs 0.1 0.0 - 0.2 K/cumm [facility] Comment:Testing performed by : [facility], [address] [place] [phone] Neutrophil pct 73.1 % [facility] Comment: Interpretive Data Percent cell count reference ranges are not reported, since discordance with absolute values may lead to misinterpretation of CBC data. Current Interpretive Data was last revised on 2017. Testing performed by: [facility], [address] [place] [phone] Lymphocyte pct 16.7 % [facility] Comment: Interpretive Data Percent cell count reference ranges are not reported, since discordance with absolute values may lead to misinterpretation of CBC data. Current Interpretive Data was last revised on 2017. Testing performed by: [facility], [address] [place] [phone] Monocyte pct 7.9 % [facility] Comment:Testing performed by : [facility], [address] [place] [phone] Eosinophil pct 1.6 % [facility] Comment:Testing performed by : [address] [phone] Basophil pct 0.7 % [facility] Comment:Testing performed by : [facility], [address] [place] [phone] Blood specimen (specimen) 10/15/2020 10:32 AM CDT 10/15/2020 10:34 AM CDT us Gautam Cope MD LAB BLOOD ORDERABLES Final Resul t [facility] Department [place] [address] * (ABNORMAL) Vitamin D 25 hydroxy (10/15/2020 10:32 AM CDT) Pathologist [facility] Vitamin D 25-OH 23(L) 30 - 80 ng/mL [facility] Blood specimen (specimen) 10/15/2020 10:32 AM CDT 10/15/2020 10:53 AM CDT Gautam Cope MD LAB BLOOD ORDERABLES Final Resul t Performing Organization Address [facility] de Phone Number [facility] Department [place] [address] * Lactate dehydrogenase (LD) (10/15/2020 10:32 AM CDT) [facility] Lactate dehydrogenase (LDH) 161 100 - 250 Units/L [facility] Comment:Testing performed by : [facility], [address] [place] [phone] Blood specimen (specimen) 10/15/2020 10:32 AM CDT 10/15/2020 10:34 AM CDT Gautam Cope MD LAB BLOOD ORDERABLES Final Resul t Performing Organization Address [facility] de Phone Number [facility] Department [place] [address] * (ABNORMAL) CBC with auto differential (10/15/2020 10:32 AM CDT) [facility] WBC 11.0(H) 3.8 - 9.8 K/cumm [facility] Comment:Testing performed by : [facility], [address] [place] [phone] Hgb 12.6(L) 13.8 - 17.2 g/dL [facility] Comment:Testing performed by : [facility], [address] [place] [phone] Hct 36.8(L) 40.7 - 50.3 % [facility] Comment:Testing performed by : [facility], [address] [place] [phone] Plt 365 140 - 440 K/cumm [facility] Comment:Testing performed by : [facility], [address] [place] [phone] MPV 7.2 6.8 - 10.4 fL [facility] Comment:Testing performed by : [facility], [address] [place], [place] [phone] RBC 4.24(L) 4.50 - 5.70 M/cumm [facility] Comment:Testing performed by : [facility], [address] [place], [place] [phone] MCV 86.9 80.0 - 97.6 fL [facility] Comment:Testing performed by : [facility], [address] [place], [place] [phone] MCH 29.7 26.7 - 33.7 pg [facility] Comment:Testing performed by : [place] [phone] MCHC 34.1 32.7 - 35.5 g/dL [facility] Comment:Testing performed by : [facility], [address] [place] [phone] RDW CV 14.5 11.8 - 14.6 % [facility] Comment:Testing performed by : [facility], [address] [place] [phone] NRBC abs 0.00 0.00 - 0.01 K/cumm [facility] Comment:Testing performed by : [address] [phone] Blood specimen (specimen) 10/15/2020 10:32 AM CDT 10/15/2020 10:34 AM CDT us Gautam Cope MD LAB BLOOD ORDERABLES Final Resul t [facility] Department [place] [address] * (ABNORMAL) Comprehensive metabolic panel (10/15/2020 10:32 AM CDT) Sodium 138 135 - 145 mmol/L [facility] Comment:Testing performed by : [facility], [address] [place] [phone] Potassium, pl 4.2 3.3 - 4.9 mmol/L [facility] Comment:Testing performed by : [facility], [address] [place] [phone] Chloride 102 97 - 110 mmol/L [facility] Comment:Testing performed by : [facility], [address] [place] [phone] CO2 29 22 - 32 mmol/L [facility] Comment:Testing performed by : [facility], [address] [place] [phone] Anion gap 7 2 - 15 mmol/L [facility] Comment:Testing performed by : [facility], [address] [place] [phone] BUN 35(H) 8 - 25 mg/dL [facility] Comment:Testing performed by : [address] [phone] Creatinine 1.48(H) 0.80 - 1.30 mg/dL [facility] Comment:Testing performed by : [facility], [address] [place] [phone] Glucose 187 70 - 199 mg/dL [facility] [...] was last revised 2017. Testing performed by: [facility], [address] [place] [phone] Calcium 9.6 8.5 - 10.3 mg/dL [facility] Comment:Testing performed by : [facility], [address] [place] [phone] Bilirubin, total 0.6 0.1 - 1.2 mg/dL [facility] Comment:Testing performed by : [facility], [address] [place] [phone] Protein, pl 7.1 6.5 - 8.5 g/dL [facility] Comment:Testing performed by : [facility], [address] [place] [phone] Albumin 4.4 3.5 - 5.0 g/dL [facility] Comment:Testing performed by : [facility], [address] [place] [phone] Alk phos 115 40 - 130 Units/L [facility] Comment:Testing performed by : [facility], [address] [place] [phone] ALT 10 7 - 55 Units/L [facility] Comment:Testing performed by : [facility], [address] [place] [phone] AST 10 10 - 50 Units/L [facility] Comment:Testing performed by : [facility], [address] [place] [phone] Blood specimen (specimen) 10/15/2020 10:32 AM CDT 10/15/2020 10:34 AM CDT us Gautam Cope MD LAB BLOOD ORDERABLES Final Resul t [facility] Department [place] [address] * PSA diagnostic (10/15/2020 10:32 AM CDT) PSA-Total <0.10 <=6.20 ng/mL [facility] Comment: Interpretive Data ?AGE ? SEX ?REFERENCE [...] ORDERABLES Final Resul t Performing Organization Address City/State/[facility] Co ks Phone Number [facility] Department [place] [address] documented in this encounter Visit Diagnoses Diagnosis Prostate cancer (HCC) Malignant neoplasm of prostate documented in this encounter Orders Appointment Requests Count Last Ordered Date Fi rst Ordered Date ONCBCN LAB APPOINTMENT 1 10/15/2020 documented in this encounter Care Teams Blasting Contract Man Relationship Specialty Start Date End Date Kraig Ching MD [address] [place] [address] PCP - General 07/10/16 Gautam Cope MD [address] [place] [address] Medical Oncologist/Printed Circuit Boards Solder Leveler Medical Oncology 08/18/18 Tramaine Roe MD [address] [place] [address] Referring Physician Urology 08/18/18 Sukhwinder Uribe MD [address] [place] [address] Consulting Physician Urology 08/18/18 Shay Guillermo MD [address] [facility] [address] [place] [address] Referring Physician Urology 08/18/18 Marsha Landis, RN Registered Nurse 11/17/18 documented as of this encounter
--- OUTSIDE RECORDS SUMMARY | 2024-03-31 11:31 | XMS_ITS | Encounter Summary ---
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 Minimize further functional decline 2. Maximize quality of life 3. Control pain Strategies: - Activity/exercise program recommendation - Conservative stepwise pain medicine strategy with multi-disciplinary approach - Recommend healthy lifestyle strategies and compensatory methods as needed documented as of this encounter Visit Diagnoses Not on filedocumented in this encounter Care Teams Orientor Relationship Specialty Start Date End Date Kraig Ching MD [address] [place] [address] PCP - General 07/10/16 Gautam Cope MD [address] [place] [address] Medical Oncologist/Dredge Or [facility] Oncology 08/18/18 Tramaine Roe MD [address] [place] [address] Referring Physician Urology 08/18/18 Sukhwinder Uribe MD [address] [place] [address] Consulting Physician Urology 08/18/18 Shay Guillermo MD [address] [facility] [address] [place] [address] Referring Physician Urology 08/18/18 Marsha Landis, RN Registered Nurse 11/17/18 documented as of this encounter
--- OUTSIDE RECORDS SUMMARY | 2024-03-31 11:31 | XMS_ITS | Encounter Summary ---
Author Organization [facility] Address [address] [place] [address] Care Team Providers Care Electronic Installer Name Role Phone Kraig Ching MD Primary Care Provider [phone] Gautam Cope MD Unavailable Tramaine Roe MD Unavailable [phone] Sukhwinder Uribe MD Unavailable [phone] Shay Guillermo MD Unavailable [phone] Marsha Landis RN Unavailable Unavailab le Reason for Visit * Reason Onset Date Comments Medication Request 02/21/2021 Encounter Details Date Type Department Care Team (Late st Contact Info) Description 02/21/2021 Telephone [facility] [address] [facility] [address] [place] [address] Kraig Ching MD [address] [facility] [address] [place] [address] Medication Request Social History Tobacco [...] file 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 The patient needs another medication that is more affordable than Januvia 25 mg tablet The patient is running out of medication today. Caller???s Call back #: [phone] Does message need to be routed? Yes-Action Needed COVERER * Telephone Encounter - Rosy Mcmanus MA - 02/24/2021 9:06 AM FORM COVERER Fwd to [facility] COVERER * Telephone Encounter - Nuria Zamorano - [...] be sent to: [facility] Caller???s Callback #: [phone] Additional Comments: NA Does message need to be routed? Yes-Action Needed COVERER documented in this encounter Plan of Treatment [...] Care Management No change(03/23 1:47 PM FORM COVERER) No Ingrid Oden, RN Note: Problem: Chronic Pain Goals: 1. Minimize further functional decline 2. Maximize quality of life 3. Control pain Strategies: - Activity/exercise program recommendation - Conservative stepwise pain medicine strategy with multi-disciplinary approach - Recommend healthy lifestyle strategies and compensatory methods as needed documented as of this encounter Visit Diagnoses Not on filedocumented in this encounter Care Teams Electronic Installer Relationship Specialty Start Date End Date Kraig Ching MD [address] [place] [address] PCP - General 07/10/16 Gautam Cope MD [address] [place] [address] Medical Oncologist/Studio Musician Medical Oncology 08/18/18 Tramaine Roe MD [address] [place] [address] Referring Physician Urology 08/18/18 Sukhwinder Uribe MD [address] [place] [address] Consulting Physician Urology 08/18/18 Shay Guillermo MD [address] [place] [address] Referring Physician Urology 08/18/18 Marsha Landis, RN Registered Nurse 11/17/18 documented as of this encounter
--- OUTSIDE RECORDS SUMMARY | 2024-03-31 11:31 | XMS_ITS | Encounter Summary ---
Author Organization [facility] Address [address] [place] [address] Phone Care Team Providers Care Ingot Buggy Operator Name Role Phone Kraig Ching MD Primary Care Provider [phone] Gautam Cope MD Unavailable Tramaine Roe MD Unavailable [phone] Sukhwinder Uribe MD Unavailable Shay Guillermo MD Unavailable [phone] Marsha Landis RN Unavailable Unavailab le Encounter Details Date Type Department Care Team (Late st Contact Info) Description 10/07/2020 Orders Only [facility] Nephrology [address] [facility] 5th [place] [address] [place] [address] Lin Guerrero MD [address] [facility] [address] [place] [address] GABRIELA (acute kidney injury) (CMS/HCC) [...] file 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 Gender Identity Not on file Sexual [...] microscopic Lab Routine GABRIELA (acute kidney injury) ([facility]) Expected: 10/07/2020, Expires: 10/07/2021 documented as of [...] Care Management No change(03/23 1:47 PM INDUSTRIAL MAINTENANCE TECH) No Ingrid Oden, RN Note: Problem: [...] 1:10 PM CDT GABRIELA (acute kidney injury) ([facility]) documented in this encounter Results * Copy received from (10/11/2020 1:10 PM CDT) Copy Rec'd from: [facility] Comment: ?[facility] - INTERNAL MED-RENAL ?[id number] ?[place] [address] 10/11/2020 1:10 PM CDT 10/11/2020 1:11 PM CDT Narrative [facility] - 10/12/2020 8:25 AM CDT PT VARIFIED ALL INFO IS CORRECT FASTING:NO FASTING: NO us Lin Guerrero MD LAB BLOOD ORDERABLES Final Resul t [facility] * (ABNORMAL) Urinalysis reflex to microscopic (10/11/2020 1:10 PM CDT) Color, ur YELLOW YELLOW [facility] Appearance, ur CLEAR CLEAR [facility] Specific gravity 1.019 1.001 - 1.035 [facility] pH, ur 6.0 5.0 - 8.0 [facility] Glucose, ur 3+(A) NEGATIVE [facility] Bilirubin, ur NEGATIVE NEGATIVE [facility] Ketones, ur NEGATIVE NEGATIVE [facility] Blood, ur NEGATIVE NEGATIVE [facility] Protein, ur, quant NEGATIVE NEGATIVE [facility] Nitrites, ur NEGATIVE NEGATIVE [facility] Leukocyte esterase, ur NEGATIVE NEGATIVE [facility] WBC, ur CANCELED < OR = 5 /HPF [facility] Comment:Result canceled by t he ancillary. RBC, ur CANCELED < OR = 2 /HPF [facility] Comment:Result canceled by t he ancillary. Epithelial cells, squamous, ur CANCELED < OR = 5 /HPF [facility] Comment:Result canceled by t he ancillary. Epithelial cells, transitional CANCELED < OR = 5 /HPF [facility] Comment:Result canceled by t he ancillary. Epithelial cells, renal, ur CANCELED < OR = 3 /HPF [facility] Comment:Result canceled by t he ancillary. Bacteria, ur, quant CANCELED NONE SEEN /HPF [facility] Comment:Result canceled by t he ancillary. Calcium oxalate crystals, ur CANCELED NONE OR FEW /HPF [facility] Comment:Result canceled by t he ancillary. Triple phosphate crystals, ur CANCELED NONE OR FEW /HPF [facility] Comment:Result canceled by t he ancillary. Uric acid crystals, ur CANCELED NONE OR FEW /HPF [facility] Comment:Result canceled by t he ancillary. Amorphous crystals, ur CANCELED NONE OR FEW /HPF [facility] Comment:Result canceled by t he ancillary. Crystals, ur CANCELED NONE SEEN /HPF [facility] Comment:Result canceled by t he ancillary. Hyaline cast CANCELED NONE SEEN /LPF [facility] Comment:Result canceled by t he ancillary. Granular casts, ur CANCELED NONE SEEN /LPF [facility] Comment:Result canceled by t he ancillary. Casts CANCELED NONE SEEN /LPF [facility] Comment:Result canceled by t he ancillary. Yeast, ur CANCELED NONE SEEN /HPF [facility] Comment:Result canceled by t he ancillary. Comments CANCELED [facility] Comment:Result canceled by t he ancillary. 10/11/2020 1:10 PM CDT 10/11/2020 1:11 PM CDT Narrative [facility] - 10/12/2020 8:25 AM CDT PT VARIFIED ALL INFO IS CORRECT FASTING:NO FASTING: NO us Lin Guerrero MD LAB URINE ORDERABLES Final Resul t [facility] [address] [facility] [facility] [place] [address] * COPY(IES) SENT TO: (10/11/2020 1:10 PM CDT) COPY(IES) SENT TO: [facility] Comment: ?WASH U INTERNAL MED RENAL ?[id number] [facility] [address] ?[place] [address] 10/11/2020 1:10 PM CDT 10/11/2020 1:11 PM [...] approximately 13% higher for people identified as -Kazakh. eGFR NON-AFR. COMORAN 26(L) > OR = 60 mL/min/1. 73m2 [...] ORDERABLES Final Resul t [facility] [address] [address] documented in this encounter Visit Diagnoses Diagnosis GABRIELA (acute kidney injury) (HCC)- Primary documented in this encounter Care Teams Ingot Buggy Operator Relationship Specialty Start Date End Date Kraig Ching MD [address] [place] [address] PCP - General 07/10/16 Gautam Cope MD [address] [place] [address] Medical Oncologist/Coupling Machine Operator Medical Oncology 08/18/18 Tramaine Roe MD [address] [place] [address] Referring Physician Urology 08/18/18 Sukhwinder Uribe MD [address] [place] [address] Consulting Physician Urology 08/18/18 Shay Guillermo MD [address] [place] [address] Referring Physician Urology 08/18/18 Marsha Landis, RN Registered Nurse 11/17/18 documented as of this encounter
--- OUTSIDE RECORDS SUMMARY | 2024-03-31 11:31 | XMS_ITS | Encounter Summary ---
Author Organization [facility] Address [address] [place] [address] Phone Care Team Providers Care Order Processing Clerk Name Role Phone Kraig Ching MD Primary Care Provider [phone] Gautam Cope MD Unavailable Tramaine Roe MD Unavailable [phone] Sukhwinder Uribe MD Unavailable [phone] Shay Guillermo MD Unavailable [phone] Marsha Landis RN Unavailable Unavailab le Reason for Visit * Reason Comments Injections * Episode Based Medications (Routine) - Authorized Specialty Diagnoses / Procedures Referred By Contac t Referred To Contact Oncology Diagnoses Prostate cancer (HCC) Procedures ME LEUPROLIDE ACETATE SUSPNSION Leuprolide Every 3 Months - Prostate Gautam Cope MD [address] [facility] [address] [place] [address] Phone: tel: fax: [facility] - [facility]fusion [address] [facility] Floor [address] [place] [address] Referral ID Status Reason Start Date Expiration Date V isits Requested Visits Authorized [id number] Authorized 09/06/2018 07/11/2024 1 50 Encounter Details Date Type Department Care Team (Late st Contact Info) Description 10/15/2020 11:45 AM CDT Infusion [facility] Oncology [address] 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 Gender Identity Not on file Sexual Orientation Not on file documented as of this encounter Nursing Notes * Norma Maki, RN - 10/15/2020 11:45 AM CDT Oncology Nursing Note [facility] David Wei is a [...] Chronic Care Management No change(03/23 1:47 PM FLARER) No Ingrid Oden, SHEA Note: Problem: Chronic [...] 09/2020 documented in this encounter Care Teams Order Processing Clerk Relationship Specialty Start Date End Date Kraig Ching MD [address] [facility] [address] [place] [address] PCP - General 07/10/16 Gautam Cope MD [address] [place] [address] Medical Oncologist/Statistical Assistant Medical Oncology 08/18/18 Tramaine Roe MD [address] [place] [address] Referring Physician Urology 08/18/18 Sukhwinder Uribe MD [address] [place] [address] Consulting Physician Urology 08/18/18 Shay Guillermo MD [address] [place] [address] Referring Physician Urology 08/18/18 Marsha Landis, RN Registered Nurse 11/17/18 documented as of this encounter
--- OUTSIDE RECORDS SUMMARY | 2024-03-31 11:31 | XMS_ITS | Encounter Summary ---
Author Organization [facility] Address [address] [place] [address] Phone Care Team Providers Care Event Sales Assistant Name Role Phone Kraig Ching MD Primary Care Provider [phone] Gautam Cope MD Unavailable Tramaine Roe MD Unavailable [phone] Sukhwinder Uribe MD Unavailable [phone] Shay Guillermo MD Unavailable [phone] Marsha Landis RN Unavailable Unavailab le Encounter Details Date Type Department Care Team (Late st Contact Info) Description 09/19/2020 Telephone [facility] Nephrology [address] [facility] Advanced Medicine 5th [place] [address] [place] [address] [place] Aragon, RN Social History [...] on file 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 Minimize further functional decline 2. Maximize quality of life 3. Control pain Strategies: - Activity/exercise program recommendation - Conservative stepwise pain medicine strategy with multi-disciplinary approach - Recommend healthy lifestyle strategies and compensatory methods as needed documented as of this encounter Visit Diagnoses Not on filedocumented in this encounter Care Teams Event Sales Assistant Relationship Specialty Start Date End Date Kraig Ching MD [address] [place] [address] PCP - General 07/10/16 Gautam Cope MD [address] [place] [address] Medical Oncologist/Pcas Medical Oncology 08/18/18 Tramaine Roe MD [address] [place] [address] Referring Physician Urology 08/18/18 Sukhwinder Uribe MD [address] [place] [address] Consulting Physician Urology 08/18/18 Shay Guillermo MD [address] [place] [address] Referring Physician Urology 08/18/18 Marsha Landis, RN Registered Nurse 11/17/18 documented as of this encounter
--- OUTSIDE RECORDS SUMMARY | 2024-03-31 11:31 | XMS_ITS | Encounter Summary ---
Author Organization [facility] Address [address] [place] [address] Phone Care Team Providers Care Clerical Adjudicator Name Role Phone Kraig Ching MD Primary Care Provider [phone] Gautam Cope MD Unavailable Tramaine Roe MD Unavailable [phone] Sukhwinder Uribe MD Unavailable [phone] Shay Guillermo MD Unavailable [phone] Marsha Landis RN Unavailable Unavailab le Encounter Details Date Type Department Care Team (Late st Contact Info) Description 09/12/2020 Orders Only [facility] Nephrology [address] [facility] Advanced Medicine 5th [place] [address] [place] [address] [place] Aragon, RN Social History [...] file 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 Minimize further functional decline 2. Maximize quality of life 3. Control pain Strategies: - Activity/exercise program recommendation - Conservative stepwise pain medicine strategy with multi-disciplinary approach - Recommend healthy lifestyle strategies and compensatory methods as needed documented as of this encounter Visit Diagnoses Not on filedocumented in this encounter Care Teams Clerical Adjudicator Relationship Specialty Start Date End Date Kraig Ching MD [address] [place] [address] PCP - General 07/10/16 Gautam Cope MD [address] [place] [address] Medical Oncologist/Manometer Technician Medical Oncology 08/18/18 Traamine Roe MD [address] [place] [address] Referring Physician Urology 08/18/18 Sukhwinder Uribe MD [address] [place] [address] Consulting Physician Urology 08/18/18 Shay Guillermo MD [address] [place] [address] Referring Physician Urology 08/18/18 Marsha Landis, RN Registered Nurse 11/17/18 documented as of this encounter
--- OUTSIDE RECORDS SUMMARY | 2024-03-31 11:31 | XMS_ITS | Encounter Summary ---
Author Organization [facility] Address [address] [place] [address] Care Team Providers Care Business Systems Analyst Name Role Phone Kraig Ching MD Primary Care Provider [phone] Gautam Cope MD Unavailable Tramaine Roe MD Unavailable Sukhwinder Uribe MD Unavailable Shay Guillermo MD Unavailable [phone] Marsha Landis RN Unavailable Unavailab le Reason for Visit * Reason Comments Pain Procedure Back Pain Encounter Details Date Type Department Care Team (Latest Contact Info) Description 10/10/2020 10:48 AM CDT - 10/10/2020 11:59 PM CDT Hospital Encounter [facility] [address] [facility] Advanced Medicine [address] [place], [place] [id number] Maru Arreola MD PhD [address] [facility] [phone] [place] [address] Spinal stenosis of lumbar region with neurogenic [...] on file 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 DIET: [x] Resume normal diet [] See [facility] Post Discharge Procedure Information Sheet ACTIVITY: [] Resume normal activity [x] See [facility] Post Discharge Procedure Information Sheet REFERRALS: Physical Therapy [] [facility] Physical Therapy ([phone]) [] GMI (Graded Motor Imagery) [] [facility] ([phone]) [] GMI (Graded Motor Imagery) [] Other: Behavior Medicine [] Pain Psychologist, [facility] Pain Psychology Please call to schedule appointment [phone] or [phone] Diagnostic Test(s): EDUCATION provided on the following: [...] INSTRUCTIONS before your next procedure: [] See [facility] Pre-Procedure Information Sheet [] Do not eat or drink for six (6) hours before the time/date of the procedure. [] Inquire with your prescribing provider if ok to hold blood thinner for ( ) days before procedure. [] Blood work required 2 hours before procedure: [] Fish Farmer needed for next procedure [] Pre Procedure instructions will be sent through [employer] or by phone two working days prior to procedure. *Need help with [employer]? Call [phone]. Patient provided information and repeated back with understanding. If you need to reach us: For any questions about your procedure, please call the Pain Management Center [phone] (M-F) (8am-4pm) If you need urgent attention after 5 pm and weekends: Call the [facility] Composition Board Press Operator at [phone] and ask for the Pain Service doctor pre sales technical consultant. documented in this encounter Medications at Time [...] disease with chronic kidney disease stage III ([facility]) Take 1 tablet (10 mg total) by [...] kidney disease) stage 3, GFR 30-59 ml/min ([facility]) Take 1 tablet (12.5 [...] disease, without long-term current use of insulin ([facility]) TAKE 1 TABLET BY [...] D.O. Resident Physician Physical Medicine and Rehabilitation [facility] in [facility] This patient was initially evaluated by the pain geospatial program management officer/ I reviewed that evaluation with the trainee and also evaluated the patient myself. I agree with the evaluation and recommendationsnoted above including edits which I have made to the note above. Maru Arreola MD PhD [employer] [place] Title Examiner of Anesthesiology [facility], [facility] Management Center 10/10/2020 5:34 PM * [...] Chronic Care Management No change(03/23 1:47 PM DRIVER'S EDUCATION INSTRUCTOR) Ingrid Mcdaniels, SHEA Note: Problem: Chronic Pain [...] documented as of this encounter Care Teams Business Systems Analyst Relationship Specialty Start Date End Date Kraig Ching MD [address] [facility] [address] [place] [address] PCP - General 07/10/16 Gautam Cope MD [address] [facility] [address] [place] [address] Medical Oncologist/Physician Practice Market Manager Medical Oncology 08/18/18 Tramaine Roe MD [address] [facility] [address] [place] [address] Referring Physician Urology 08/18/18 Sukhwinder Uribe MD [address] [facility] [address] [place] [address] Consulting Physician Urology 08/18/18 Shay Guillermo MD [address] [facility] [address] [place] [address] Referring Physician Urology 08/18/18 Marsha Landis, RN Registered Nurse 11/17/18 documented as of this encounter
--- OUTSIDE RECORDS SUMMARY | 2024-03-31 11:31 | XMS_ITS | Encounter Summary ---
Author Organization [facility] Address [address] [place] [address] Phone Care Team Providers Care Metal Stamper Name Role Phone Kraig Ching MD Primary Care Provider [phone] Gautam Cope MD Unavailable Tramaine Roe MD Unavailable [phone] Sukhwinder Uribe MD Unavailable [phone] Shay Guillermo MD Unavailable [phone] Marsha Landis RN Unavailable Unavailab le Encounter Details Date Type Department Care Team (Late st Contact Info) Description 09/12/2020 Telephone [facility] Nephrology [address] 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 Scheduled [facility] 09/18/20 at 1pm (owned by [facility]) faxed order [phone] - Called patient with appointment details, advised patient the prep for the US is a full bladder, also reminded patient to get repeat RFP in 2 weeks - order sent to [facility]. documented in this encounter Plan of Treatment [...] Chronic Care Management No change(03/23 1:47 PM BATTERY ASSEMBLER DRY CELL) No Ingrid Oden RN Note: Problem: Chronic Pain Goals: 1. Minimize further functional decline 2. Maximize quality of life 3. Control pain Strategies: - Activity/exercise program recommendation - Conservative stepwise pain medicine strategy with multi-disciplinary approach - Recommend healthy lifestyle strategies and compensatory methods as needed documented as of this encounter Visit Diagnoses Not on filedocumented in this encounter Care Teams Metal Stamper Relationship Specialty Start Date End Date Kraig Ching MD [address] [facility] [address] [place] [address] PCP - General 07/10/16 Gautam Cope MD [address] [facility] [address] [place] [address] Medical Oncologist/Item Processor Medical Oncology 08/18/18 Tramaine Roe MD [address] [facility] [address] [place] [address] Referring Physician Urology 08/18/18 Sukhwinder Uribe MD [address] [facility] [address] [place] [address] Consulting Physician Urology 08/18/18 Shay Guillermo MD [address] [facility] [address] [place] [address] Referring Physician Urology 08/18/18 Marsha Landis, RN Registered Nurse 11/17/18 documented as of this encounter
--- OUTSIDE RECORDS SUMMARY | 2024-03-31 11:31 | XMS_ITS | Encounter Summary ---
Author Organization [facility] Address [address] [facility] [address] [place] [address] Care Team Providers Care Ui Software Engineer Name Role Phone Kraig Ching MD Primary Care Provider [phone] Gautam Cope MD Unavailable Tramaine Roe MD Unavailable [phone] Sukhwinder Uribe MD Unavailable [phone] Shay Guillermo MD Unavailable [phone] Marsha Landis RN Unavailable Unavailab le Reason for Visit * Reason Comments Follow-up Encounter Details Date Type Department Care Team (Late st Contact Info) Description 09/26/2020 11:30 AM CDT Office Visit [facility] [address] [facility] [address] [place] [address] Kraig Ching MD [address] [facility] [address] [place] [address] Essential hypertension (Primary Dx); Hyperlipidemia, [...] on file 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 Continue Insulin. Stop metformin in setting of CKD. Follow withNephrology for CKD. 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 Minimize further functional decline 2. Maximize quality of life 3. Control pain Strategies: - Activity/exercise program recommendation - Conservative stepwise pain medicine strategy with multi-disciplinary approach - Recommend healthy lifestyle strategies and compensatory methods as needed documented as of this encounter Results * (ABNORMAL) Lipid panel (09/26/2020 11:50 AM CDT) [facility] Cholesterol 186 30 - 199 mg/dL [facility] Comment: [...] 2017. HDL 34(L) >=40 mg/dL [facility] Comment: Interpretive Data Ages < or [...] on 2017. LDL, calculated 86 <=129 mg/dL [facility] Comment: Interpretive Data Ages < or = [...] last revised on 2017. Chol/HDL ratio 5 [facility] Blood specimen (specimen) 09/26/2020 11:50 AM CDT 09/26/2020 5:15 PM CDT us Kraig Ching MD LAB BLOOD ORDERABLES Final Re sult Performing Organization Address City/State/[facility] Co de Phone Number [facility] Department [place] [address] documented in this encounter Visit Diagnoses Diagnosis [...] documented as of this encounter Care Teams Ui Software Engineer Relationship Specialty Start Date End Date Kraig Ching MD [address] [place] [address] PCP - General 07/10/16 Gautam Cope MD [address] [place] [address] Medical Oncologist/Internal Controls Specialist Medical Oncology 08/18/18 Tramaine Roe MD [address] [place] [address] Referring Physician Urology 08/18/18 uSkhwinder Uribe MD [address] [place] [address] Consulting Physician Urology 08/18/18 Shay Guillermo MD [address] [place] [address] Referring Physician Urology 08/18/18 Marsha Landis, RN Registered Nurse 11/17/18 documented as of this encounter
--- OUTSIDE RECORDS SUMMARY | 2024-03-31 11:31 | XMS_ITS | Encounter Summary ---
Author Organization [facility] Address [address] [place] [address] Phone Care Team Providers Care Chair Inspector Name Role Phone Kraig Ching MD Primary Care Provider [phone] Gautam Cope MD Unavailable Tramaine Roe MD Unavailable [phone] Sukhwinder Uribe MD Unavailable [phone] Shay Guillermo MD Unavailable [phone] Marsha Landis RN Unavailable Unavailab le Encounter Details Date Type Department Care Team (Latest Contact Info) Description 09/11/2020 10:30 AM CDT Telemedicine 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 During the visit, I was located at the outpatient Nephrology Clinic on 5th floor [facility] at [facility] and the patient was located at home in the [facility]. I was present for the entire [...] renal ultrasound. Nancy Perdue MD Nephrology fellow [facility] Nephrology Cosigned by Lin Guerrero MD [...] Chronic Care Management No change(03/23 1:47 PM RESPIRATORY CARE PRACTITIONER) No Ingrid Oden, SHEA Note: Problem: [...] ?[address] ?[place] [address] 09/24/2020 1:30 PM CDT 09/24/2020 1:31 PM CDT Narrative [facility] - 09/25/2020 7:02 AM CDT PT VARIFIED ALL INFO FASTING:NO FASTING: NO us Nancy Perdue MD LAB BLOOD ORDERABLES Final Result [facility] * COPY(IES) SENT TO: (09/24/2020 1:30 PM CDT) COPY(IES) SENT TO: [facility] Comment: ?[facility] INTERNAL MED RENAL ?[address] ?[place] [address] 09/24/2020 1:30 PM CDT 09/24/2020 1:31 PM [...] for people identified as -Kazakh. eGFR NON-AFR. PARAGUAYAN 18(L) > OR = 60 mL/min/1. 73m2 [...] MD LAB BLOOD ORDERABLES Final Result [facility] [address] [address] documented in this encounter Visit Diagnoses Diagnosis GABRIELA (acute kidney injury) (HCC)- Primary Secondary hyperparathyroidism of renal origin (HCC) Secondary hyperparathyroidism (of renal origin) documented in this encounter Discontinued Medications Medication Sig Discontinue Reason Start Date End Da te carvediloL (COREG) 6.25 mg tablet 05/10/2020 09/11/2020 documented as of this encounter Care Teams Chair Inspector Relationship Specialty Start Date End Date Kraig Ching MD [address] [place] [address] PCP - General 07/10/16 Gautam Cope MD [address] [place] [address] Medical Oncologist/Event Technician Medical Oncology 08/18/18 Tramaine Roe MD [address] [place] [address] Referring Physician Urology 08/18/18 Sukhwinder Uribe MD [address] [place] [address] Consulting Physician Urology 08/18/18 Shay Guillermo MD [address] [place] [address] Referring Physician Urology 08/18/18 Marsha Landis, RN Registered Nurse 11/17/18 documented as of this encounter
--- OUTSIDE RECORDS SUMMARY | 2024-03-31 11:31 | XMS_ITS | Encounter Summary ---
Author Organization [facility] Address [address] [place] [address] Phone Care Team Providers Care Drop Wire Aligner Name Role Phone Kraig Ching MD Primary Care Provider [phone] Gautam Cope MD Unavailable Tramaine Roe MD Unavailable [phone] Sukhwinder Uribe MD Unavailable [phone] Shay Guillermo MD Unavailable [phone] Marsha Landis RN Unavailable Unavailab le Reason for Referral * MRI/CAT/PET Scan (Routine) - Closed Specialty Diagnoses / Procedures Referred By Saleem narvaez Referred To Contact Radiology Diagnoses Prostate cancer (HCC) Procedures CT chest abdomen pelvis without contrast Gautam Cope MD [address] [facility] [address] [place] [address] Phone: tel: fax: [address] [address] Referral ID Status Reason Start Date Expiration Date Visits Re quested Visits Authorized [id number] Closed 01/01/2021 01/31/2022 1 1 * Diagnostic Imaging (Routine) - Closed Specialty Diagnoses / Procedures Referred By Saleem narvaez Referred To Contact Diagnoses Prostate cancer (HCC) Procedures NM bone scan whole body Gautam Cope MD [address] [facility] [address] [place] [address] Phone: tel: fax: [facility] 1 [facility] [place] [address] Referral ID Status Reason Start Date Expiration Date Visits Re quested Visits Authorized [id number] Closed 01/01/2021 01/31/2022 2 2 Encounter Details Date Type Department Care Team (Late st Contact Info) Description 01/07/2021 1:15 PM CDT Office Visit [facility] Oncology [address] [facility] 7th [place] [address] [place] [id number] Gautam Cope MD [address] [facility] [address] [place] [address] Prostate cancer (CMS/HCC) (HCC) (Primary Dx) Social [...] on file 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 Guillermo. His pathology showed [place] 4 + 3 disease, with extracapsular extension, [...] - 01/08/2021 12:14 PM Gautam Cope M.D. potato grader ISAK/GLORIA/lul documented in this encounter Plan of [...] Chronic Care Management No change(03/23 1:47 PM MASTERCAM PROGRAMMER) No Ingrid Oden, RN Note: Problem: Chronic Pain Goals: 1. Minimize further functional decline 2. Maximize quality of life 3. Control pain Strategies: - Activity/exercise program recommendation - Conservative stepwise pain medicine strategy with multi-disciplinary approach - Recommend healthy lifestyle strategies and compensatory methods as needed documented as of this encounter Results * PSA diagnostic (04/01/2021 9:38 AM MASTERCAM PROGRAMMER) PSA-Total <0.10 <=6.20 ng/mL [facility] Comment: Interpretive Data ?AGE ? SEX ?REFERENCE INTERVAL 0 minutes-150 years ?Female ?None 0 minutes-49 years ? Male ?None ? 50-59 years ? Male ?0-3.90 ? 60-69 years ? Male ?0-5.40 ? 70-79 years ? Male ?0-6.20 ? 80-150 years ?Male ?0-6.20 Current interpretive data last revised 2017. Blood 04/01/2021 9:38 AM MASTERCAM PROGRAMMER 04/01/2021 10:31 AM MASTERCAM PROGRAMMER us Gautam Cope MD LAB BLOOD ORDERABLES Final Resul t [facility] One [facility] Department [place] [address] * (ABNORMAL) Comprehensive metabolic panel (04/01/2021 9:38 AM MASTERCAM PROGRAMMER) Sodium 141 135 - 145 mmol/L [facility] Comment:Testing performed by : [facility], [address] [place] [phone] Potassium, pl 4.2 3.3 - 4.9 mmol/L [facility] Comment:Testing performed by : [facility], [address] [place] [phone] Chloride 100 97 - 110 mmol/L [facility] Comment:Testing performed by : [facility], [address] [place] [phone] CO2 34(H) 22 - 32 mmol/L [facility] Comment:Testing performed by : [facility], [address] [place] [phone] Anion gap 7 2 - 15 mmol/L [facility] Comment:Testing performed by : [facility], [address] [place] [phone] BUN 29(H) 8 - 25 mg/dL [facility] Comment:Testing performed by : [facility], [address] [place] [phone] Creatinine 1.52(H) 0.80 - 1.30 mg/dL [facility] Comment:Testing performed by : [facility], [address] [place] [phone] Glucose 153 70 - 199 mg/dL [facility] Comment: Interpretive Data Fasting glucose >/= 126 [...] last revised 2017. Testing performed by: [facility], [address] [place] [phone] Calcium 9.3 8.5 - 10.3 mg/dL [facility] Comment:Testing performed by : [facility], [address] [place] [phone] Bilirubin, total 0.3 0.1 - 1.2 mg/dL [facility] Comment:Testing performed by : [facility], [address] [place] [phone] Protein, pl 6.9 6.5 - 8.5 g/dL [facility] Comment:Testing performed by : [facility], [address] [place] [phone] Albumin 4.1 3.5 - 5.0 g/dL [facility] Comment:Testing performed by : [facility], [address] [place] [phone] Alk phos 123 40 - 130 Units/L [facility] Comment:Testing performed by : [facility], [address] [place] [phone] ALT 13 7 - 55 Units/L [facility] Comment:Testing performed by : [facility], [address] [place] [phone] AST 12 10 - 50 Units/L [facility] Comment:Testing performed by : [facility], [address] [place] [phone] Blood 04/01/2021 9:38 AM MASTERCAM PROGRAMMER 04/01/2021 9:39 AM MASTERCAM PROGRAMMER us Gautam Cope MD LAB BLOOD ORDERABLES Final Resul t [facility] [place] [address] * (ABNORMAL) CBC with auto differential (04/01/2021 9:38 AM MASTERCAM PROGRAMMER) WBC 10.2(H) 3.8 - 9.8 K/cumm [facility] Comment:Testing performed by : [facility], [address] [place] [phone] Hgb 12.6(L) 13.8 - 17.2 g/dL [facility] Comment:Testing performed by : [facility], [address] [place] [phone] Hct 37.8(L) 40.7 - 50.3 % [facility] Comment:Testing performed by : [facility], [address] [place] [phone] Plt 368 140 - 440 K/cumm [facility] Comment:Testing performed by : [facility], [address] [place] [phone] MPV 7.4 6.8 - 10.4 fL [facility] Comment:Testing performed by : [facility], [address] [place], [place] [phone] RBC 4.36(L) 4.50 - 5.70 M/cumm [facility] Comment:Testing performed by : [place] [phone] MCV 86.6 80.0 - 97.6 fL [facility] Comment:Testing performed by : [address] [address] MCH 29.0 26.7 - 33.7 pg [facility] Comment:Testing performed by : [facility], [address] [place] [phone] MCHC 33.5 32.7 - 35.5 g/dL [facility] Comment:Testing performed by : [address] [address] RDW CV 14.3 11.8 - 14.6 % [facility] Comment:Testing performed by : [address] [address] NRBC abs 0.00 0.00 - 0.01 K/cumm [facility] Comment:Testing performed by : [facility], [address] [place] [phone] Blood 04/01/2021 9:38 AM MASTERCAM PROGRAMMER 04/01/2021 9:39 AM MASTERCAM PROGRAMMER us Gautam Cope MD LAB BLOOD ORDERABLES Final Resul t [facility] One [facility] Department [place] [address] * Lactate dehydrogenase (LD) (04/01/2021 9:38 AM MASTERCAM PROGRAMMER) Lactate dehydrogenase (LDH) 164 100 - 250 Units/L [facility] Comment:Testing performed by : [facility], [address] [facility] [phone] Blood 04/01/2021 9:38 AM MASTERCAM PROGRAMMER 04/01/2021 9:39 AM MASTERCAM PROGRAMMER us Gautam Cope MD LAB BLOOD ORDERABLES Final Resul t [facility] Department [place] [address] * NM bone scan whole body (03/25/2021 1:51 PM MASTERCAM PROGRAMMER) Anatomical Region Laterality Modality N/A Digital Radiogra phy 03/25/2021 2:25 PM MASTERCAM PROGRAMMER Impressions 03/25/2021 4:36 PM MASTERCAM PROGRAMMER 1. Decreased conspicuity of the L2 osseous [...] Hopkins MD, Ph.D Narrative 03/25/2021 4:36 PM MASTERCAM PROGRAMMER EXAMINATION: ??BONE SCINTIGRAPHY (WHOLE-BODY) DATE OF STUDY: [...] abdomen pelvis without contrast (03/25/2021 11:54 AM MASTERCAM PROGRAMMER) Anatomical Region Laterality Modality Body N/A Computed Tomogra phy 03/25/2021 12:3 6 PM MASTERCAM PROGRAMMER Impressions 03/25/2021 12:36 PM MASTERCAM PROGRAMMER 1. Stable groundglass nodules in the right upper and lower lobes measuring up to 13 mm, suspicious for low-grade adenocarcinoma. Attention on follow-up is recommended. 2. Improved L2 sclerotic lesion. Otherwise, no CT evidence of metastatic disease. Electronically signed by: Promise Sheffield M.D. Narrative 03/25/2021 12:36 PM MASTERCAM PROGRAMMER Examination: CT chest, abdomen, and pelvis without [...] 04/01/2021 documented in this encounter Care Teams Drop Wire Aligner Relationship Specialty Start Date End Date Kraig Ching MD [address] [place] [address] PCP - General 07/10/16 Gautam Cope MD [address] [place] [address] Medical Oncologist/Remarketing Manager Medical Oncology 08/18/18 Tramaine Roe MD [address] [facility] [address] [place] [address] Referring Physician Urology 08/18/18 Sukhwinder Uribe MD [address] [facility] [address] [place] [address] Consulting Physician Urology 08/18/18 Shay Guillermo MD [address] [facility] [address] [place] [address] Referring Physician Urology 08/18/18 Marsha Landis, RN Registered Nurse 11/17/18 documented as of this encounter
--- OUTSIDE RECORDS SUMMARY | 2024-03-31 11:31 | XMS_ITS | Encounter Summary ---
Author Organization [facility] Healthcare Address [address] [place] [address] Care Team Providers Care Heat Transfer Technician Name Role Phone Kraig Ching MD Primary Care Provider [phone] Gautam Cope MD Unavailable Tramaine Roe MD Unavailable [phone] Sukhwinder Uribe MD Unavailable [phone] Shay Guillermo MD Unavailable [phone] Marsha Landis RN Unavailable Unavailab le Reason for Referral * Diagnostic Imaging (Routine) - Closed Specialty Diagnoses / Procedures Referred By Saleem narvaez Referred To Contact Diagnoses Prostate cancer (HCC) Procedures NM bone scan whole body Gautam Cope MD [address] [address] Phone: tel: fax: [address] [address] Referral ID Status Reason Start Date Expiration Date Visits Re quested Visits Authorized [id number] Closed 01/01/2021 01/31/2022 2 2 [facility] Reason for Visit * Diagnostic Imaging (Routine) - Closed Specialty Diagnoses / Procedures Referred By Saleem narvaez Referred To Contact Diagnoses Prostate cancer (HCC) Procedures NM bone scan whole body Gautam Cope MD [address] [facility] [address] [place] [address] Phone: tel: fax: [facility] 1 [facility] [place] [address] Referral ID Status Reason Start Date Expiration Date Visits Re quested Visits Authorized [id number] Closed 01/01/2021 01/31/2022 2 2 Encounter Details Date Type Department Care Team (Latest Contact Info) Description 03/25/2021 10:22 AM KNOWLEDGE MANAGER - 03/25/2021 11:59 PM KNOWLEDGE MANAGER Hospital Encounter [facility] ([facility]) [address] [place] [address] Gautam Cope MD [address] [facility] [address] [place] [address] Prostate cancer (CMS/HCC) (HCC) Discharge Disposition: Discharge [...] on file Legal Sex Male 4:46 PM KNOWLEDGE MANAGER Gender Identity Not on file Sexual [...] with chronic kidney disease stage III ([facility]) Take 1 tablet (10 mg total) by mouth nightly Pt needs to call MD for f/u appt [phone]. 90 tablet 12/23/2020 2 aspirin 81 mg [...] diabetes and kidney status, etc. [facility] Chronic Pain Care Plan Chronic Care Management No change(03/23 1:47 PM KNOWLEDGE MANAGER) No Ingrid Oden RN Note: Problem: [...] Read Routine (OP Routine) 03/25/2021 1:51 PM KNOWLEDGE MANAGER Prostate cancer (CMS/HCC) (HCC) documented in this encounter Results * NM bone scan whole body (03/25/2021 1:51 PM KNOWLEDGE MANAGER) Anatomical Region Laterality Modality N/A Digital Radiogra phy 03/25/2021 2:25 PM KNOWLEDGE MANAGER Impressions 03/25/2021 4:36 PM KNOWLEDGE MANAGER 1. Decreased conspicuity of the L2 osseous [...] Hopkins MD, Ph.D Narrative 03/25/2021 4:36 PM KNOWLEDGE MANAGER EXAMINATION: ??BONE SCINTIGRAPHY (WHOLE-BODY) DATE OF STUDY: [...] Ar Hopkins MD, Ph.D Gautam Cope MD [facility]ED[facility] Final Result documented in [...] RadiographyIndicatio ns:Diagnostic Radiography Given 03/25/2021 10:45 AM KNOWLEDGE MANAGER 23.08 millicuries Left Antecubital documented in this encounter Care Teams Heat Transfer Technician Relationship Specialty Start Date End Date Kraig hCing MD [address] [facility] [address] [place] [address] PCP - General 07/10/16 Gautam Cope MD [address] [facility] [address] [place] [address] Medical Oncologist/Storage Consultant Medical Oncology 08/18/18 Tramaine Roe MD [address] [facility] [address] [place] [address] Referring Physician Urology 08/18/18 Sukhwinder Uribe MD [address] [facility] [address] [place] [address] Consulting Physician Urology 08/18/18 Shay Guillermo MD [address] [facility] [address] [place] [address] Referring Physician Urology 08/18/18 Marsha Landis, RN Registered Nurse 11/17/18 documented as of this encounter
--- OUTSIDE RECORDS SUMMARY | 2024-03-31 11:31 | XMS_ITS | Encounter Summary ---
Author Organization [facility] Healthcare Address [address] [place] [address] Care Team Providers Care Logistic Manager Name Role Phone Kraig Ching MD Primary Care Provider [phone] Gautam Cope MD Unavailable Tramaine Roe MD Unavailable [phone] Sukhwinder Uribe MD Unavailable [phone] Shay Guillermo MD Unavailable [phone] Marsha Landis RN Unavailable Unavailab le Reason for Referral * Diagnostic Imaging (Routine) - Closed Specialty Diagnoses / Procedures Referred By Contac t Referred To Contact Diagnoses Pain management Procedures FL Fluoroscopy < 1 Hour (Statistical Only) Maru Arreola MD PhD [address] [phone] [place] [address] Phone: tel: fax: [facility] 1 [place] [address] Referral ID Status Reason Start Date Expiration Date Visits Re quested Visits Authorized [id number] Closed 10/09/2020 11/08/2021 1 1 Reason for Visit * Diagnostic Imaging (Routine) - Closed Specialty Diagnoses / Procedures Referred By Contac t Referred To Contact Diagnoses Pain management Procedures FL Fluoroscopy < 1 Hour (Statistical Only) Maru Arreola MD PhD [address] [facility] [address] [facility] [phone] [place] [address] Phone: tel: fax: [address] [address] Referral ID Status Reason Start Date Expiration Date Visits Re quested Visits Authorized [id number] Closed 10/09/2020 11/08/2021 1 1 Encounter Details Date Type Department Care Team (Latest Contact Info) Description 10/10/2020 7:13 AM CDT - 10/10/2020 10:47 AM CDT Hospital Encounter [facility] Pain Management [facility] ([facility]) [address] [place] [address] Pain management Discharge Disposition: Discharge to home [...] file 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 [facility] Chronic Pain Care Plan Chronic Care Management No change(03/23 1:47 PM FINANCIAL INSTITUTION PRESIDENT) No Ingrid Oden RN Note: Problem: Chronic [...] PROCEDUR ES Final Result Performing Organization Address City/State/[facility] [place] Phone Number [email or web address] documented in this encounter Visit Diagnoses Diagnosis Pain management documented in this encounter Care Teams Logistic Manager Relationship Specialty Start Date End Date Kraig Ching MD [address] [place] [address] PCP - General 07/10/16 Gautam Cope MD [address] [place] [address] Medical Oncologist/Linen Room Worker Medical Oncology 08/18/18 Tramanie Roe MD [address] [facility] [address] [place] [address] Referring Physician Urology 08/18/18 Sukhwinder Uribe MD [address] [facility] [address] [place] [address] Consulting Physician Urology 08/18/18 Shay Guillermo MD [address] [facility] [address] [place] [address] Referring Physician Urology 08/18/18 Marsha Landis, RN Registered Nurse 11/17/18 documented as of this encounter
--- OUTSIDE RECORDS SUMMARY | 2024-03-31 11:31 | XMS_ITS | Encounter Summary ---
Author Organization [facility] Healthcare Address [address] [place] [address] Care Team Providers Care Learning Manager Name Role Phone Kraig Ching MD Primary Care Provider [phone] Gautam Cope MD Unavailable Tramaine Roe MD Unavailable [phone] Sukhwinder Uribe MD Unavailable [phone] Shay Guillermo MD Unavailable [phone] Marsha Landis RN Unavailable Unavailab le Reason for Referral * MRI/CAT/PET Scan (Routine) - Closed Specialty Diagnoses / Procedures Referred By Saleem narvaez Referred To Contact Radiology Diagnoses Prostate cancer (HCC) Procedures CT chest abdomen pelvis without contrast Gautam Cope MD [address] [address] Phone: tel: fax: [facility] 1 [place] [address] Referral ID Status Reason Start Date Expiration Date Visits Re quested Visits Authorized [id number] Closed 01/01/2021 01/31/2022 1 1 [employer] 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 HELPER Reason for Visit * MRI/CAT/PET Scan (Routine) - Closed Specialty Diagnoses / Procedures Referred By Saleem narvaez Referred To Contact Radiology Diagnoses Prostate cancer (HCC) Procedures CT chest abdomen pelvis without contrast Gautam Cope MD [address] [facility] [address] [place] [address] Phone: tel: fax: [facility] 1 [facility] [place] [address] Referral ID Status Reason Start Date Expiration Date Visits Re quested Visits Authorized [id number] Closed 01/01/2021 01/31/2022 1 1 Encounter Details Date Type Department Care Team (Latest Contact Info) Description 03/25/2021 10:22 AM FURNITURE FINISHER HELPER - 03/25/2021 11:59 PM FURNITURE FINISHER HELPER Hospital Encounter [facility] ([facility]) [address] [place] [address] Gautam Cope MD [address] [facility] [address] [place] [address] Prostate cancer (CMS/HCC) (HCC) Discharge [...] on file Legal Sex Male 4:46 PM FURNITURE FINISHER HELPER Gender Identity Not on file Sexual [...] disease with chronic kidney disease stage III ([facility]) Take 1 tablet (10 mg total) by mouth nightly Pt needs to call MD for f/u appt [phone]. 90 tablet 12/23/2020 2 aspirin 81 mg [...] stage 3, GFR 30-59 ml/min ([facility]) TAKE 1 TABLET(12.5 MG) BY MOUTH [...] long-term current use of insulin ([facility]) TAKE 1 TABLET BY MOUTH DAILY [...] monitor diabetes and kidney status, etc. [facility] Chronic Pain Care Plan Chronic Care Management No change(03/23 1:47 PM FURNITURE FINISHER HELPER) No Ingrid Oden RN Note: Problem: [...] Read Routine (OP Routine) 03/25/2021 11:54 AM FURNITURE FINISHER HELPER Prostate cancer (CMS/HCC) (HCC) documented in this encounter Results * CT chest abdomen pelvis without contrast (03/25/2021 11:54 AM FURNITURE FINISHER HELPER) Anatomical Region Laterality Modality Body N/A Computed Tomogra phy 03/25/2021 12:3 6 PM FURNITURE FINISHER HELPER Impressions 03/25/2021 12:36 PM FURNITURE FINISHER HELPER 1. Stable groundglass nodules in the right upper and lower lobes measuring up to 13 mm, suspicious for low-grade adenocarcinoma. Attention on follow-up is recommended. 2. Improved L2 sclerotic lesion. Otherwise, no CT evidence of metastatic disease. Electronically signed by: Promise Sheffield M.D. Narrative 03/25/2021 12:36 PM FURNITURE FINISHER HELPER Examination: CT chest, abdomen, and pelvis without [...] prostate documented in this encounter Care Teams Learning Manager Relationship Specialty Start Date End Date Kraig Ching MD [address] [place], [place] [id number] PCP - General 07/10/16 Gautam Cope MD [address] [place] [address] Medical Oncologist/Medical Office Specialist Medical Oncology 08/18/18 Tramaine Roe MD [address] [facility] [address] [place] [address] Referring Physician Urology 08/18/18 Sukhwinder Uribe MD [address] [facility] [address] [place] [address] Consulting Physician Urology 08/18/18 Shay Guillermo MD [address] [facility] [address] [place] [address] Referring Physician Urology 08/18/18 Marsha Landis, RN Registered Nurse 11/17/18 documented as of this encounter
--- OUTSIDE RECORDS SUMMARY | 2024-03-31 11:32 | XMS_ITS | Encounter Summary ---
Author Organization [facility] Address [address] [place] [address] Phone Care Team Providers Care Filler Blender Name Role Phone Kraig Ching MD Primary Care Provider [phone] Gautam Cope MD Unavailable Tramaine Roe MD Unavailable [phone] Sukhwinder Uribe MD Unavailable [phone] Shay Guillermo MD Unavailable [phone] Marsha Landis RN Unavailable Unavailab Reason for Referral * Diagnostic Imaging (Routine) - Closed Specialty Diagnoses / Procedures Referred By Saleem t Referred To Contact Diagnoses Prostate cancer (HCC) Procedures Dexa Axial Skeleton Bone Density 1 or 2 Site Gautam Cope MD [address] [facility] [address] [place] [address] Phone: tel: fax: [facility] (All Locations) Referral ID Status Reason Start Date Expiration Date Visits Re quested Visits Authorized [id number] Closed 11/13/2019 12/12/2020 1 1 Reason for Visit * Episode Based Medications (Routine) - Authorized Specialty Diagnoses / Procedures Referred By Contulices t Referred To Contact Oncology Diagnoses Prostate cancer (HCC) Procedures OR LEUPROLIDE ACETATE SUSPNSION Leuprolide Every 3 Months - Prostate Gautam Cope MD [address] [facility] [address] [place] [address] Phone: tel: fax: [facility] [address] [facility] [address] [place] [address] Referral ID Status Reason Start Date Expiration Date V isits Requested Visits Authorized [id number] Authorized 09/06/2018 07/11/2024 1 50 Encounter Details Date Type Department Care Team (Late st Contact Info) Description 11/14/2019 11:30 AM CDT Office Visit [facility] Oncology [address] [facility] Advanced Medicine 7th [place] [address] [place] [id number] Gautam Cope MD [address] [facility] [address] [place], [place] [id number] Prostate cancer (CMS/HCC) (Primary Dx) Social History [...] file Legal 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 We [...] - 11/14/2019 06:58 PM Gautam Cope M.D. plating engineer ISAK/GLORIA/lul documented in this encounter Plan of [...] Care Management No change(03/23 1:47 PM AIRPORT MANAGER) No Ingrid Oden, SHEA Note: Problem: [...] AM CDT 02/06/2020 10:13 AM CDT us Gautam Cope MD LAB BLOOD ORDERABLES Final Resul t Performing Organization Address City/State/[facility] Co de Phone Number [facility] Department of Laboratories [place], [place] [id number] * (ABNORMAL) Comprehensive metabolic panel (02/06/2020 9:58 AM CDT) Sodium 137 135 - 145 mmol/L [facility] Comment:Testing performed by : [facility], [address] [facility] [phone] Potassium, pl 4.3 3.3 - 4.9 mmol/L [facility] Comment:Testing performed by : [facility], [address] [facility] [phone] Chloride 100 97 - 110 mmol/L [facility] Comment:Testing performed by : [facility], [address] [facility] [address] CO2 29 22 - 32 mmol/L [facility] Comment:Testing performed by : [facility], [address] [place] [phone] Anion gap 8 2 - 15 mmol/L CERN[facility]J Comment:Testing performed by : [facility], [address] [place] [phone] BUN 36(H) 8 - 25 mg/dL CERN[facility] BJ Comment:Testing performed by : [facility], [address] [place] [phone] Creatinine 1.80(H) 0.80 - 1.30 mg/dL CERNER BJ Comment:Testing performed by : [facility], [address] [place] [phone] Glucose 208(H) 70 - 199 mg/dL CERNER [...] by: [facility], [address] [place] [phone] Calcium 9.5 8.5 - 10.3 mg/dL CERNER BJ Comment:Testing performed by : [address] [address] Bilirubin, total 0.3 0.1 - 1.2 mg/dL CERNER BJ Comment:Testing performed by : [facility], [address] [place] [phone] Protein, pl 6.9 6.5 - 8.5 g/dL CERNER BJ Comment:Testing performed by : [facility], [address] [place] [phone] Albumin 4.2 3.5 - 5.0 g/dL CERNER BJ Comment:Testing performed by : [address] [address] Alk phos 111 40 - 130 Units/L CERNER BJ Comment:Testing performed by : [facility], [address] [place] [phone] ALT 12 7 - 55 Units/L [facility] Comment:Testing performed by : [facility], [address] [place] [phone] AST 11 10 - 50 Units/L [facility] Comment:Testing performed by : [facility], [address] [place] [phone] Blood specimen (specimen) 02/06/2020 9:58 AM CDT 02/06/2020 10:00 AM CDT us Gautam Cope MD LAB BLOOD ORDERABLES Final Resul t [facility] Department [place] [address] * (ABNORMAL) CBC with auto differential (02/06/2020 9:58 AM CDT) WBC 13.0(H) 3.8 - 9.8 K/cumm [facility] Comment:Testing performed by : [facility], [address] [place] [phone] Hgb 12.4(L) 13.8 - 17.2 g/dL [facility] Comment:Testing performed by : [facility], [address] [place] [phone] Hct 37.6(L) 40.7 - 50.3 % [facility] Comment:Testing performed by : [facility], [address] [place] [phone] Plt 390 140 - 440 K/cumm [facility] Comment:Testing performed by : [address] [phone] MPV 7.4 6.8 - 10.4 fL [facility] Comment:Testing performed by : [address] [phone] RBC 4.21(L) 4.50 - 5.70 M/cumm [facility] Comment:Testing performed by : [facility], [address] [place] [phone] MCV 89.4 80.0 - 97.6 fL [facility] Comment:Testing performed by : [facility], [address] [place] [phone] MCH 29.5 26.7 - 33.7 pg [facility] Comment:Testing performed by : [facility], [address] [place] [phone] MCHC 33.0 32.7 - 35.5 g/dL [facility] Comment:Testing performed by : [facility], [address] [place] [phone] RDW CV 13.9 11.8 - 14.6 % [facility] Comment:Testing performed by : [facility], [address] [place], [place] [phone] NRBC abs 0.01 0.00 - 0.01 K/cumm [facility] Comment:Testing performed by : [facility], [address] [place] [phone] Blood specimen (specimen) 02/06/2020 9:58 AM CDT 02/06/2020 10:00 AM CDT Gautam Cope MD LAB BLOOD ORDERABLES Final Resul t Performing Organization Address City/[facility]/ZIP Co de Phone Number [facility] [place] [address] * Lactate dehydrogenase (LD) (02/06/2020 9:58 AM CDT) Lactate dehydrogenase (LDH) 167 100 - 250 Units/L [facility] Comment:Testing performed by : [facility], [address] [place] [phone] Blood specimen (specimen) 02/06/2020 9:58 AM CDT 02/06/2020 10:00 AM CDT us Gautam Cope MD LAB BLOOD ORDERABLES Final Resul t Performing Organization Address City/[facility]/ZIP Co de Phone Number [facility] [place] [address] * Dexa Axial Skeleton Bone Density 1 or 2 Site (01/30/2020 11:30 AM CDT) Anatomical Region Laterality Modality Body N/A Radiographic Roberta ging Narrative 01/31/2020 9:24 AM CDT Patient Name: David Drew Date of : 1940 Date of scan: 01/30/2020 Bone mineral density was performed on a [employer] Discovery Densitometer. ?? Machine Cross-calibration and Precision [...] by the International Society of Clinical Densitometry. [id number] us Gautam Cope MD [facility] DXA PROCEDURES Final Result * (ABNORMAL) Hemoglobin A1c (11/14/2019 10:07 AM CDT) Hgb A1C 10.0(H) 4.0 - 5.6 % [facility] Estimated Average Glucose 240 mg/dL [facility] Comment: The ADA recommends reporting an estimated Average Glucose (eAG) with all Hemoglobin A1c results using the equation derived from a study of 507 normal and diabetic adults. ??Minority populations were underrepresented and children were not included. ?? (Diabetes Care 31:9242-6937, 2008). ??The eAG is not equivalent to a fasting glucose. Blood specimen (specimen) 11/14/2019 10:07 AM CDT 11/14/2019 10:23 AM CDT us Gautam Cope MD LAB BLOOD ORDERABLES Final Resul t [facility] Department [place] [address] documented in this encounter Visit Diagnoses Diagnosis [...] 02/06/2020 documented in this encounter Care Teams Filler Blender Relationship Specialty Start Date End Date Kraig Ching MD [address] [facility] [address] [place] [address] PCP - General 07/10/16 Gautam Cope MD [address] [facility] [address] [place] [address] Medical Oncologist/Cell Changer Medical Oncology 08/18/18 Tramaine Roe MD [address] [facility] [address] [place] [address] Referring Physician Urology 08/18/18 Sukhwinder Uribe MD [address] [facility] [address] [place] [address] Consulting Physician Urology 08/18/18 Shay Guillermo MD [address] [facility] [address] [place] [address] Referring Physician Urology 08/18/18 Marsha Landis, RN Registered Nurse 11/17/18 documented as of this encounter
--- OUTSIDE RECORDS SUMMARY | 2024-03-31 11:32 | XMS_ITS | Encounter Summary ---
Author Organization [facility] Address [address] [facility] [address] [place] [address] Care Team Providers Care Distance Learning Coordinator Name Role Phone Kraig Ching MD Primary Care Provider [phone] Gautam Cope MD Unavailable Tramaine Roe MD Unavailable [phone] Sukhwinder Uribe MD Unavailable [phone] Shay Guillermo MD Unavailable [phone] Marsha Landis RN Unavailable Unavailab le Reason for Visit * Reason Onset Date Comments Jeane Medical question 02/26/2020 Encounter Details Date Type Department Care Team (Late st Contact Info) Description 02/26/2020 Telephone [facility] [address] [facility] [address] [place] [address] Kraig Ching MD [address] [facility] [address] [place] [address] Jeane Medical question Social History [...] on file 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 He is requesting to change to a phone/video appt. Please advise. Caller's Callback #: [phone] LESS STORE MANAGER * Telephone Encounter - Clau Bridges - 02/26/2020 8:41 AM CST Patient called regarding his appointment tomorrow with LILIA Del Rio, he does not want to come into the office due to the spike in COVID, he os asking f this can be a phone appointment , please call patient to advise LESS STORE MANAGER documented in this encounter Plan of [...] Chronic Care Management No change(03/23 1:47 PM WIRELESS STORE MANAGER) No Ingrid Oden, SHEA Note: Problem: Chronic Pain Goals: 1. Minimize further functional decline 2. Maximize quality of life 3. Control pain Strategies: - Activity/exercise program recommendation - Conservative stepwise pain medicine strategy with multi-disciplinary approach - Recommend healthy lifestyle strategies and compensatory methods as needed documented as of this encounter Visit Diagnoses Not on filedocumented in this encounter Care Teams Distance Learning Coordinator Relationship Specialty Start Date End Date Kraig Ching MD [address] [place] [address] PCP - General 07/10/16 Gautam Cope MD [address] [place] [address] Medical Oncologist/Internal Grinding Machine Operator Medical Oncology 08/18/18 Tramaine Roe MD [address] [facility] [address] [place] [address] Referring Physician Urology 08/18/18 Sukhwinder Uribe MD [address] [facility] [address] [place] [address] Consulting Physician Urology 08/18/18 Shay Guillermo MD [address] [facility] [address] [place] [address] Referring Physician Urology 08/18/18 Marsha Landis, RN Registered Nurse 11/17/18 documented as of this encounter
--- OUTSIDE RECORDS SUMMARY | 2024-03-31 11:32 | XMS_ITS | Encounter Summary ---
Author Organization [facility] Address [address] [place] [address] Phone Care Team Providers Care Social Media Intern Name Role Phone Kraig Ching MD Primary Care Provider [phone] Gautam Cope MD Unavailable Tramaine Roe MD Unavailable [phone] Sukhwinder Uribe MD Unavailable Shay Guillermo MD Unavailable Marsha Landis RN Unavailable Unavailab le Reason for Visit * Episode Based Medications (Routine) - Authorized Specialty Diagnoses / Procedures Referred By Saleem t Referred To Contact Oncology Diagnoses Prostate cancer (HCC) Procedures DE LEUPROLIDE ACETATE SUSPNSION Leuprolide Every 3 Months - Prostate Gautam Cope MD [address] [facility] [address] [place] [address] Phone: tel: fax: [facility] - [facility]fusion [address] [facility] [address] 5 [place] [address] Referral ID Status Reason Start Date Expiration Date V isits Requested Visits Authorized [id number] Authorized 09/06/2018 07/11/2024 1 50 Encounter Details Date Type Department Care Team (Late st Contact Info) Description 02/06/2020 9:45 AM CDT Lab [facility] Oncology [address] 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 [facility] Chronic Pain Care Plan Chronic Care Management No change(03/23 1:47 PM HABILITATION WORKER) No Ingrid Oden, SHEA Note: Problem: [...] Comment:Testing performed by : [facility], [address] [place] [phone] Lymphocyte abs 1.4 1.2 - 3.3 K/cumm [facility] Comment:Testing performed by : [facility], [address] [place] [phone] Monocyte abs 0.9 0.2 - 1.2 K/cumm [facility] Comment:Testing performed by : [facility], [address] [place] [phone] Eosinophil abs 0.1 0.0 - 0.5 K/cumm [facility] Comment:Testing performed by : [facility], [address] [place] [phone] Basophil abs 0.1 0.0 - 0.2 K/cumm [facility] Comment:Testing performed by : [facility], [address] [place] [phone] Neutrophil pct 81.4 % [facility] Comment: Interpretive Data Percent cell count reference ranges are not reported, since discordance with absolute values may lead to misinterpretation of CBC data. Current Interpretive Data was last revised on 2017. Testing performed by: [facility], [address] [place] [phone] Lymphocyte pct 10.4 % [facility] Comment: Interpretive Data Percent cell count reference ranges are not reported, since discordance with absolute values may lead to misinterpretation of CBC data. Current Interpretive Data was last revised on 2017. Testing performed by: [facility], [address] [place] [phone] Monocyte pct 6.6 % [facility] Comment:Testing performed by : [facility], [address] [place] [phone] Eosinophil pct 1.0 % [facility] Comment:Testing performed by : [facility], [address] [place] [phone] Basophil pct 0.6 % [facility] Comment:Testing performed by : [facility], [address] [place] [phone] Blood specimen (specimen) 02/06/2020 9:58 AM CDT 02/06/2020 10:00 AM CDT Gautam Cope MD LAB BLOOD ORDERABLES Final Resul t Performing Organization Address [facility] Co de Phone Number [facility] [place] [address] * Lactate dehydrogenase (LD) (02/06/2020 9:58 AM CDT) [facility] Lactate dehydrogenase (LDH) 167 100 - 250 Units/L [facility] Comment:Testing performed by : [facility], [address] [place] [phone] Blood specimen (specimen) 02/06/2020 9:58 AM CDT 02/06/2020 10:00 AM CDT Gautam Cope MD LAB BLOOD ORDERABLES Final Resul t Performing Organization Address [facility] de Phone Number [facility] [place] [address] * (ABNORMAL) CBC with auto differential (02/06/2020 9:58 AM CDT) [facility] WBC 13.0(H) 3.8 - 9.8 K/cumm [facility] Comment:Testing performed by : [facility], [address] [place] [phone] Hgb 12.4(L) 13.8 - 17.2 g/dL [facility] Comment:Testing performed by : [facility], [address] [place] [phone] Hct 37.6(L) 40.7 - 50.3 % [facility] Comment:Testing performed by : [facility], [address] [place] [phone] Plt 390 140 - 440 K/cumm [facility] Comment:Testing performed by : [facility], [address] [place] [phone] MPV 7.4 6.8 - 10.4 fL [facility] Comment:Testing performed by : [address] [address] RBC 4.21(L) 4.50 - 5.70 M/cumm [facility] Comment:Testing performed by : [facility], [address] [place] [phone] MCV 89.4 80.0 - 97.6 fL [facility] Comment:Testing performed by : [facility], [address] [place] [phone] MCH 29.5 26.7 - 33.7 pg [facility] Comment:Testing performed by : [facility], [address] [place] [phone] MCHC 33.0 32.7 - 35.5 g/dL [facility] Comment:Testing performed by : [facility], [address] [place] [phone] RDW CV 13.9 11.8 - 14.6 % [facility] Comment:Testing performed by : [facility], [address] [place] [phone] NRBC abs 0.01 0.00 - 0.01 K/cumm [facility] Comment:Testing performed by : [facility], [address] [place] [phone] Blood specimen (specimen) 02/06/2020 9:58 AM CDT 02/06/2020 10:00 AM CDT us Gautam Cope MD LAB BLOOD ORDERABLES Final Resul t [facility] Department of Laboratories [place], [place] [id number] * (ABNORMAL) Comprehensive metabolic panel (02/06/2020 9:58 AM CDT) Sodium 137 135 - 145 mmol/L [facility] Comment:Testing performed by : [facility], [address] [place] [address] Potassium, pl 4.3 3.3 - 4.9 mmol/L [facility] Comment:Testing performed by : [address] [phone] Chloride 100 97 - 110 mmol/L [facility] Comment:Testing performed by : [facility], [address] [place] [phone] CO2 29 22 - 32 mmol/L [facility] Comment:Testing performed by : [facility], [address] [place] [phone] Anion gap 8 2 - 15 mmol/L [facility] Comment:Testing performed by : [facility], [address] [place] [phone] BUN 36(H) 8 - 25 mg/dL [facility] Comment:Testing performed by : [facility], [address] [place] [phone] Creatinine 1.80(H) 0.80 - 1.30 mg/dL [facility] Comment:Testing performed by : [facility], [address] [place] [phone] Glucose 208(H) 70 - 199 mg/dL [facility] [...] was last revised 2017. Testing performed by: [facility], [address] [place] [phone] Calcium 9.5 8.5 - 10.3 mg/dL [facility] Comment:Testing performed by : [facility], [address] [place] [phone] Bilirubin, total 0.3 0.1 - 1.2 mg/dL [facility] Comment:Testing performed by : [facility], [address] [place] [phone] Protein, pl 6.9 6.5 - 8.5 g/dL [facility] Comment:Testing performed by : [facility], [address] [place] [phone] Albumin 4.2 3.5 - 5.0 g/dL [facility] Comment:Testing performed by : [facility], [address] [facility] [address] Alk phos 111 40 - 130 Units/L [facility] Comment:Testing performed by : [facility], [address] [place] [phone] ALT 12 7 - 55 Units/L [facility] Comment:Testing performed by : [facility], [address] [place] [address] AST 11 10 - 50 Units/L [facility] Comment:Testing performed by : [facility], [address] [place] [phone] Blood specimen (specimen) 02/06/2020 9:58 AM CDT 02/06/2020 10:00 AM CDT us Gautam Cope MD LAB BLOOD ORDERABLES Final Resul t Performing Organization Address City/State/[facility] Co de Phone Number [facility] Department [place] [address] * PSA diagnostic (02/06/2020 9:58 AM CDT) [...] ORDERABLES Final Resul t Performing Organization Address [facility] de Phone Number [facility] Department [place] [address] * (ABNORMAL) Hemoglobin A1c (02/06/2020 8:58 AM CDT) Hgb A1C 9.0(H) 4.0 - 5.6 % [facility] Estimated Average Glucose 212 mg/dL [facility] Comment: The ADA recommends reporting an estimated Average Glucose (eAG) with all Hemoglobin A1c results using the equation derived from a study of 507 normal and diabetic adults. ??Minority populations were underrepresented and children were not included. ?? (Diabetes Care 31:6275-5685, 2008). ??The eAG is not equivalent to a fasting glucose. Blood specimen (specimen) 02/06/2020 8:58 AM CDT 02/06/2020 10:14 AM CDT Gautam Cope MD LAB BLOOD ORDERABLES Final Resul t Performing Organization Address [facility] de Phone Number [facility] Department [place] [address] documented in this encounter Visit Diagnoses Diagnosis [...] 02/06/2020 documented in this encounter Care Teams Social Media Intern Relationship Specialty Start Date End Date Kraig Ching MD [address] [facility] [address] [place] [address] PCP - General 07/10/16 Gautam Cope MD [address] [facility] [address] [place] [address] Medical Oncologist/Scale Agent Medical Oncology 08/18/18 Tramaine Roe MD [address] [facility] [address] [place] [address] Referring Physician Urology 08/18/18 Sukhwinder Uirbe MD [address] [facility] [address] [place] [address] Consulting Physician Urology 08/18/18 Shay Guillermo MD [address] [facility] [address] [place] [address] Referring Physician Urology 08/18/18 Marsha Landis, RN Registered Nurse 11/17/18 documented as of this encounter
--- OUTSIDE RECORDS SUMMARY | 2024-03-31 11:32 | XMS_ITS | Encounter Summary ---
Author Organization [facility] Address [address] [facility] [address] [place] [address] Care Team Providers Care Patient Services Representative Name Role Phone Kraig Ching MD Primary Care Provider [phone] Gautam Cope MD Unavailable Tramaine Roe MD Unavailable [phone] Sukhwinder Uribe MD Unavailable [phone] Shay Guillermo MD Unavailable [phone] Marsha Landis RN Unavailable Unavailab le Encounter Details Date Type Department Care Team (Late st Contact Info) Description 04/10/2020 Telephone [facility] [address] [facility] [address] [place] [address] Stanley Delacruz MA Social History [...] on file 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 He stated he has already contacted the facility about a wk ago. I stated we have not received a report. He stated he would call and have them fax it to our office again L[address] FUEL[facility] * Telephone Encounter - Stanley Delacruz MA - 04/10/2020 3:22 PM CST ----- Message from Stanley Delacruz MA sent at 03/28/2020 8:05 AM AIRPLANE FUELER ----- Regarding: Dilated Eye Exam Check in e/ pt to see if dilated eye exam work has been faxed over L[address] FUELER documented in this encounter Plan of Treatment [...] to monitor diabetes and kidney status, etc. [facility] Chronic Pain Care Plan Chronic Care Management No change(03/23 1:47 PM AIRPLANE FUELER) No Ingrid Oden, SHEA Note: Problem: Chronic Pain Goals: 1. Minimize further functional decline 2. Maximize quality of life 3. Control pain Strategies: - Activity/exercise program recommendation - Conservative stepwise pain medicine strategy with multi-disciplinary approach - Recommend healthy lifestyle strategies and compensatory methods as needed documented as of this encounter Visit Diagnoses Not on filedocumented in this encounter Care Teams Patient Services Representative Relationship Specialty Start Date End Date Kraig Ching MD [address] [facility] [address] [place] [address] PCP - General 07/10/16 [place] [address] [place] [address] [address] [place] [address] Medical Oncologist/Metal Base Blocker Medical Oncology 08/18/18 [place] [address] [place] [address] [address] [place] [address] Referring Physician Urology 08/18/18 Sukhwinder Uribe MD [address] [facility] [address] [place] [address] Consulting Physician Urology 08/18/18 Shay Guillermo MD [address] [facility] [address] [place] [address] Referring Physician Urology 08/18/18 Marsha Landis RN Registered Nurse 11/17/18 documented as of this encounter
--- OUTSIDE RECORDS SUMMARY | 2024-03-31 11:32 | XMS_ITS | Encounter Summary ---
Author Organization [facility] [employer] [facility] Address [address] [place] [address] Phone Care Team Providers Care Collection Systems Foreman Name Role Phone Kraig Ching MD Primary Care Provider [phone] Gautam Cope MD Unavailable Tramaine Roe MD Unavailable [phone] Sukhwinder Uribe MD Unavailable [phone] Shay Guillemro MD Unavailable [phone] Marsha Landis RN Unavailable Unavailab le Reason for Visit * Reason Comments Injections * Episode Based Medications (Routine) - Authorized Specialty Diagnoses / Procedures Referred By Contac t Referred To Contact Oncology Diagnoses Prostate cancer (HCC) Procedures IN LEUPROLIDE ACETATE SUSPNSION Leuprolide Every 3 Months - Prostate Gautam Cope MD [address] [facility] [address] [place] [address] Phone: tel: fax: [facility] - Infusion [address] [facility] [address] 5 [place] [address] Referral ID Status Reason Start Date Expiration Date V isits Requested Visits Authorized [id number] Authorized 09/06/2018 07/11/2024 1 50 Encounter Details Date Type Department Care Team (Late st Contact Info) Description 04/30/2020 11:30 AM BENEFITS DIRECTOR Infusion [facility] Oncology [address] [facility] 7th [place] [address] Prostate cancer (CMS/HCC) (Primary Dx) Social History [...] on file 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 Ambulatory at discharge. FITS DIRECTOR documented in this encounter Plan of [...] Chronic Care Management No change(03/23 1:47 PM BENEFITS DIRECTOR) No Ingrid Oden, SHEA Note: Problem: [...] te cancer (HCC) Given 04/30/2020 11:42 AM BENEFITS DIRECTOR 22.5 mg Right Lower Abdomen documented in this encounter Orders Nursing Count Last Ordered Date First Orde red Date ONCBCN TREATMENT PARAMETERS 2 1 04/30/2020 Appointment Requests Count Last Ordered Date Fi rst Ordered Date ONCBCN INJECTION APPOINTMENT REQUEST 1 04/12 documented in this encounter Care Teams Collection Systems Foreman Relationship Specialty Start Date End Date Kraig Ching MD [address] [facility] [address] [place] [address] PCP - General 07/10/16 Gautam Cope MD [address] [facility] [address] [place] [address] Medical Oncologist/Savings Teller Medical Oncology 08/18/18 Tramaine Roe MD [address] [facility] [address] [place] [address] Referring Physician Urology 08/18/18 Sukhwinder Uribe MD [address] [facility] [address] [place] [address] Consulting Physician Urology 08/18/18 Shay Guillermo MD [address] [facility] [address] [place] [address] Referring Physician Urology 08/18/18 Marsha Landis, RN Registered Nurse 11/17/18 documented as of this encounter
--- OUTSIDE RECORDS SUMMARY | 2024-03-31 11:32 | XMS_ITS | Encounter Summary ---
Author Organization [facility] Address [address] [facility] [address] [place] [address] Care Team Providers Care Business Systems Manager Name Role Phone Kraig Ching MD Primary Care Provider [phone] Gautam Cope MD Unavailable Tramaine Roe MD Unavailable [phone] Sukhwinder Uribe MD Unavailable [phone] Shay Guillermo MD Unavailable [phone] Marsha Landis RN Unavailable Unavailab le Reason for Visit * Reason Onset Date Comments ching - lab orders 12/04/2019 Encounter Details Date Type Department Care Team (Late st Contact Info) Description 12/04/2019 Telephone [facility] [address] [facility] [address] [place] [address] Kraig Ching MD [address] [facility] [address] [place] [id number] ching - lab orders Social History Tobacco [...] on file 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 Ching from 10/09. Patient was not sure if they had been sent to [facility] yet. Please send and patient will try [...] Chronic Care Management No change(03/23 1:47 PM VENTILATING EQUIPMENT INSTALLER) No Ingrid Oden RN Note: Problem: Chronic Pain Goals: 1. Minimize further functional decline 2. Maximize quality of life 3. Control pain Strategies: - Activity/exercise program recommendation - Conservative stepwise pain medicine strategy with multi-disciplinary approach - Recommend healthy lifestyle strategies and compensatory methods as needed documented as of this encounter Visit Diagnoses Not on filedocumented in this encounter Care Teams Business Systems Manager Relationship Specialty Start Date End Date Kraig Ching MD [address] [facility] [address] [place] [address] PCP - General 07/10/16 Gautam Cope MD [id number] [place] [address] Medical Oncologist/Science Manager Medical Oncology 08/18/18 Tramaine Roe MD [id number] [place] [address] Referring Physician Urology 08/18/18 Sukhwinder Uribe MD [id number] [place] [address] Consulting Physician Urology 08/18/18 Shay Guillermo MD [id number] [place] [address] Referring Physician Urology 08/18/18 Marsha Landis RN Registered Nurse 11/17/18 documented as of this encounter
--- OUTSIDE RECORDS SUMMARY | 2024-03-31 11:32 | XMS_ITS | Encounter Summary ---
Author Organization [facility] Address [address] [facility] [address] [place] [address] Care Team Providers Care Competitive Athlete Name Role Phone Kraig Ching MD Primary Care Provider [phone] Gautam Cope MD Unavailable Tramaine Roe MD Unavailable [phone] Sukhwinder Uribe MD Unavailable [phone] Shay Guillermo MD Unavailable [phone] Marsha Landis RN Unavailable Unavailab le Reason for Visit * Reason Onset Date Comments Med Refill 07/03/2020 Encounter Details Date Type Department Care Team (Late st Contact Info) Description 07/03/2020 Telephone [facility] [address] [facility] [address] [place] [address] Kraig Ching MD [address] [facility] [address] [place], [place] [id number] Med Refill Social History Tobacco Use Types [...] on file 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 1 [...] to monitor diabetes and kidney status, etc. [facility] Chronic Pain Care Plan Chronic Care Management No change(03/23 1:47 PM SHIPPING/RECEIVING MANAGER) No Ingrid Oden RN Note: Problem: [...] under the skin daily Reports changed to [id number] UNITS UNDER THE SKIN DAILY UTD. Reorder 10/10/2019 07/03/2020 documented as of this encounter Historical Medications * This list may reflect changes made after this encounter. Medication Sig Dispense Quantity Refills Last Filled Start D ate End Date carvediloL (COREG) 6.25 mg tablet 05/10/2020 09/11/2020 added in this encounter Care Teams Competitive Athlete Relationship Specialty Start Date End Date Kraig Ching MD [address] [place] [address] PCP - General 07/10/16 Gautam Cope MD [address] [facility] [address] [place] [address] Medical Oncologist/Oyster Shipper Medical Oncology 08/18/18 Tramaine Roe MD [address] [facility] [address] [place] [address] Referring Physician Urology 08/18/18 Sukhwinder Uribe MD [address] [facility] [address] [place] [address] Consulting Physician Urology 08/18/18 Shay Guillermo MD [address] [facility] [address] [place] [address] Referring Physician Urology 08/18/18 Marsha Landis, RN Registered Nurse 11/17/18 documented as of this encounter
--- OUTSIDE RECORDS SUMMARY | 2024-03-31 11:32 | XMS_ITS | Encounter Summary ---
Author Organization [facility] Address [address] [place] [address] Care Team Providers Care Kier Drier Name Role Phone Kraig Ching MD Primary Care Provider [phone] Gautam Cope MD Unavailable Tramaine Roe MD Unavailable [phone] Sukhwinder Uribe MD Unavailable [phone] Shay Guillermo MD Unavailable [phone] Marsha Landis RN Unavailable Unavailab le Encounter Details Date Type Department Care Team (Late st Contact Info) Description 12/14/2019 11:15 AM CDT Telemedicine [facility] [address] [address] [place] [address] Kraig Ching MD [address] [facility] [address] [place] [address] Type 2 diabetes mellitus with [...] on file 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 [...] file Gets together: Not on file Attends restoration service: Not on file Active member of [...] ??? Not on file Problem Prostate Cancer ([facility]) Hypertensive Kidney Disease With Chronic Kidney Disease Stage III ([facility]) Type 2 Diabetes Mellitus With Stage 3 Chronic Kidney Disease, Without Long-Term Current Use of Insulin ([facility]) Description: YEAR OF ONSET: 1989 [...] under the skin daily Reports changed to [id number] UNITS UNDER THE SKIN DAILY UTD. 1 [...] intolerant of high potency statins. Prostate cancer ([facility]) Assessment & Plan: Follow with Oncology. Oxycodone for severe pain. Kraig Ching MD documented in this encounter Miscellaneous Notes * Assessment & Plan Note - Kraig Ching MD - 12/14/2019 11:27 AM CDT Associated Problem(s): Prostate cancer ([facility]) Follow with Oncology. Oxycodone for severe pain. * Assessment & Plan Note - Kraig Ching MD - 12/14/2019 7:09 AM CDT Associated Problem(s): Type 2 diabetes mellitus without complication, with long-term current use ofinsulin ([facility]) (HCC) (Resolved 10/02/2023) Recent HgbA1C improved to 9. He has been referred to Endocrinology. Increase Lantus to . * Assessment & Plan Note - Kraig Ching MD - 12/14/2019 7:08 AM CDT Associated Problem(s): Hypertensive kidney disease with chronic kidney disease stage III ([facility]) Blood pressure is elevated. Add amlodipine.Reviewed creatinine [...] Chronic Care Management No change(03/23 1:47 PM GLOBAL TECHNICAL WRITER) No Ingrid Oden, RN Note: Problem: Chronic [...] documented as of this encounter Care Teams Kier Drier Relationship Specialty Start Date End Date Kraig Ching MD [address] [place] [address] PCP - General 07/10/16 Gautam Cope MD [address] [place] [address] Medical Oncologist/Cloth Napping Supervisor Medical Oncology 08/18/18 Tramaine Roe MD [address] [place] [address] Referring Physician Urology 08/18/18 Sukhwinder Uribe MD [address] [place] [address] Consulting Physician Urology 08/18/18 Shay Guillermo MD [address] [place] [address] Referring Physician Urology 08/18/18 Marsha Landis, RN Registered Nurse 11/17/18 documented as of this encounter
--- OUTSIDE RECORDS SUMMARY | 2024-03-31 11:32 | XMS_ITS | Encounter Summary ---
Author Organization [facility] Address [address] [place] [address] Phone Care Team Providers Care Binder Folder Operator Name Role Phone Kraig Ching MD Primary Care Provider [phone] Gautam Cope MD Unavailable Traamine Roe MD Unavailable [phone] Sukhwinder Uribe MD Unavailable [phone] Shay Guillermo MD Unavailable [phone] Marsha Landis RN Unavailable Unavailab le Reason for Visit * Reason Comments Osteoporosis * Diagnostic Imaging (Routine) - Closed Specialty Diagnoses / Procedures Referred By Contulices t Referred To Contact Diagnoses Prostate cancer (HCC) Procedures Dexa Axial Skeleton Bone Density 1 or 2 Site Gautam Cope MD [address] [facility] [address] [place] [address] Phone: tel: fax: [facility] (All Locations) Referral ID Status Reason Start Date Expiration Date Visits Re quested Visits Authorized [id number] Closed 11/13/2019 12/12/2020 1 1 Encounter Details Date Type Department Care Team (Latest Contact Info) Description 01/30/2020 11:10 AM CDT Clinical Support [facility] [address] [facility] 5th [place] [address] [place] [address] Prostate cancer (CMS/HCC); Prophylactic use of [...] file Legal Sex Male 4:46 PM 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 Gender Identity Not on file Sexual Orientation [...] Care Management No change(03/23 1:47 PM MANAGER CARD) No Ingrid Oden RN Note: Problem: Chronic [...] Routine) 01/30/2020 11:30 AM CDT Prostate cancer ([facility]) documented in this encounter Results * Dexa Axial Skeleton Bone Density 1 or 2 Site (01/30/2020 11:30 AM CDT) Anatomical Region Laterality Modality Body N/A Radiographic Roberta ging Narrative 01/31/2020 9:24 AM CDT Patient Name: David Wei Date of : 1940 Date of scan: 01/30/2020 Bone mineral density was performed on a HoloPeerReach Discovery Densitometer. ?? Machine Cross-calibration and Precision [...] by the International Society of Clinical Densitometry. [id number] us Gautam Cope MD IMG DXA PROCEDURES Final Result documented in this encounter Visit Diagnoses Diagnosis Prostate cancer (HCC) Malignant neoplasm of prostate Prophylactic use of leuprolide acetate (Lupron) Prophylactic use of other agents affecting estrogen receptors and estrogen levels documented in this encounter Care Teams Binder Folder Operator Relationship Specialty Start Date End Date Kraig Ching MD [address] [place] [address] PCP - General 07/10/16 Gautam Cope MD [address] [place] [address] Medical Oncologist/Printing Supplies Sales Representative Medical Oncology 08/18/18 Tramaine Roe MD [address] [place] [address] Referring Physician Urology 08/18/18 Sukhwinder Uribe MD [address] [place] [address] Consulting Physician Urology 08/18/18 Shay Guillermo MD [address] [place] [address] Referring Physician Urology 08/18/18 Marsha Landis, RN Registered Nurse 11/17/18 documented as of this encounter
--- OUTSIDE RECORDS SUMMARY | 2024-03-31 11:32 | XMS_ITS | Encounter Summary ---
Author Organization [facility] Address [address] [place] [address] Phone Care Team Providers Care Liner Roll Changer Name Role Phone Kraig Ching MD Primary Care Provider [phone] Gautam Cope MD Unavailable Tramaine Roe MD Unavailable [phone] Sukhwinder Uribe MD Unavailable [phone] Shay Guillermo MD Unavailable Marsha Landis RN Unavailable Unavailab le Reason for Visit * Episode Based Medications (Routine) - Authorized Specialty Diagnoses / Procedures Referred By Saleem t Referred To Contact Oncology Diagnoses Prostate cancer (HCC) Procedures ND LEUPROLIDE ACETATE SUSPNSION Leuprolide Every 3 Months - Prostate Gautam Cope MD [address] [facility] [address] [place] [address] Phone: tel: fax: [facility] [address] [place] [address] Referral ID Status Reason Start Date Expiration Date V isits Requested Visits Authorized [id number] Authorized 09/06/2018 07/11/2024 1 50 Encounter Details Date Type Department Care Team (Late st Contact Info) Description 11/14/2019 10:30 AM CDT Lab [facility] Oncology [address] [facility] 7th [place] [address] [place] [id number] Prostate cancer (CMS/HCC) Social History Tobacco Use [...] on file Legal Sex Male 4:46 PM 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 [facility] Chronic Pain Care Plan Chronic Care Management No change(03/23 1:47 PM MIDDLE SCHOOL VOLLEYBALL COACH) No Ingrid Oden, RN Note: Problem: Chronic [...] 11/14/2019 10: 07 AM CDT Prostate cancer ([facility]) CBC WITH AUTO DIFFERENTIAL Routine 11/14/2019 10:07 AM CDT Prostate cancer ([facility]) PSA DIAGNOSTIC Routine 11/14/2019 10:07 AM CDT Prostate cancer ([facility]) LACTATE DEHYDROGENASE Routine 11/14/2019 10:07 AM CDT Prostate cancer ([facility]) HEMOGLOBIN A1C Routine 11/14/2019 10:07 AM CDT Prostate cancer ([facility]) COMPREHENSIVE METABOLIC PANEL Routine 11/14/2019 10:07 AM CDT Prostate cancer ([facility]) documented in this encounter Results * (ABNORMAL) Differential, auto (11/14/2019 10:07 AM CDT) Neutrophil abs 7.3(H) 1.8 - 6.6 K/cumm [facility] Comment:Testing performed by : [facility], [address] [place] [phone] Lymphocyte abs 1.5 1.2 - 3.3 K/cumm [facility] Comment:Testing performed by : [facility], [address] [place] [phone] Monocyte abs 0.8 0.2 - 1.2 K/cumm [facility] Comment:Testing performed by : [facility], [address] [place] [phone] Eosinophil abs 0.2 0.0 - 0.5 K/cumm [facility] Comment:Testing performed by : [facility], [address] [place] [phone] Basophil abs 0.1 0.0 - 0.2 K/cumm [facility] Comment:Testing performed by : [facility], [address] [place] [phone] Neutrophil pct 74.6 % [facility] Comment: Interpretive Data Percent cell count reference ranges are not reported, since discordance with absolute values may lead to misinterpretation of CBC data. Current Interpretive Data was last revised on 2017. Testing performed by: [facility], [address] [place] [phone] Lymphocyte pct 14.9 % [facility] Comment: Interpretive Data Percent cell count reference ranges are not reported, since discordance with absolute values may lead to misinterpretation of CBC data. Current Interpretive Data was last revised on 2017. Testing performed by: [facility], [address] [place] [phone] Monocyte pct 8.0 % [facility] Comment:Testing performed by : [facility], [address] [place] [address] Eosinophil pct 1.7 % [facility] Comment:Testing performed by : [facility], [address] [place] [phone] Basophil pct 0.8 % [facility] Comment:Testing performed by : [facility], [address] [place] [phone] Blood specimen (specimen) 11/14/2019 10:07 AM CDT 11/14/2019 10:10 AM CDT us Gautam Cope MD LAB BLOOD ORDERABLES Final Resul t Performing Organization Address [facility] Co de Phone Number [facility] Department [place] [address] * (ABNORMAL) Hemoglobin A1c (11/14/2019 10:07 AM CDT) Pathologist [facility] Hgb A1C 10.0(H) 4.0 - 5.6 % [facility] Estimated Average Glucose 240 mg/dL [facility] Comment: The ADA recommends reporting an estimated Average Glucose (eAG) with all Hemoglobin A1c results using the equation derived from a study of 507 normal and diabetic adults. ??Minority populations were underrepresented and children were not included. ?? (Diabetes Care 31:0275-3613, 2008). ??The eAG is not equivalent to a fasting glucose. Blood specimen (specimen) 11/14/2019 10:07 AM CDT 11/14/2019 10:23 AM CDT Gautam Cope MD LAB BLOOD ORDERABLES Final Resul t Performing Organization Address [facility] Co de Phone Number [facility] Department [place] [address] * Lactate dehydrogenase (LD) (11/14/2019 10:07 AM CDT) [facility] Lactate dehydrogenase (LDH) 175 100 - 250 Units/L [facility] Comment:Testing performed by : [facility], [address] [place] [phone] Blood specimen (specimen) 11/14/2019 10:07 AM CDT 11/14/2019 10:10 AM CDT us Gautam Cope MD LAB BLOOD ORDERABLES Final Resul t Performing Organization Address [facility] Co de Phone Number [facility] [place] [address] * (ABNORMAL) CBC with auto differential (11/14/2019 10:07 AM CDT) [facility] WBC 9.8 3.8 - 9.8 K/cumm [facility] Comment:Testing performed by : [facility], [address] [place] [address] Hgb 12.8(L) 13.8 - 17.2 g/dL [facility] Comment:Testing performed by : [place] [address] Hct 37.7(L) 40.7 - 50.3 % [facility] Comment:Testing performed by : [facility], [address] [place] [address] Plt 337 140 - 440 K/cumm [facility] Comment:Testing performed by : [place] [address] MPV 7.8 6.8 - 10.4 fL [facility] Comment:Testing performed by : [place] [address] RBC 4.23(L) 4.50 - 5.70 M/cumm [facility] Comment:Testing performed by : [place] [address] MCV 89.3 80.0 - 97.6 fL [facility] Comment:Testing performed by : [place] [address] MCH 30.3 26.7 - 33.7 pg [facility] Comment:Testing performed by : [place] [address] MCHC 33.9 32.7 - 35.5 g/dL [facility] Comment:Testing performed by : [place] [address] RDW CV 14.6 11.8 - 14.6 % [facility] Comment:Testing performed by : [place] [address] NRBC abs 0.00 0.00 - 0.01 K/cumm [facility] Comment:Testing performed by : [place] [address] Blood specimen (specimen) 11/14/2019 10:07 AM CDT 11/14/2019 10:10 AM CDT us Gautam Cope MD LAB BLOOD ORDERABLES Final Resul t [facility] Department [place] [address] * (ABNORMAL) Comprehensive metabolic panel (11/14/2019 10:07 AM CDT) Sodium 139 135 - 145 mmol/L [facility] Comment:Testing performed by : [facility], [address] [place] [phone] Potassium, pl 4.3 3.3 - 4.9 mmol/L [facility] Comment:Testing performed by : [facility], [address] [place] [phone] Chloride 100 97 - 110 mmol/L [facility] Comment:Testing performed by : [facility], [address] [place] [phone] CO2 29 22 - 32 mmol/L [facility] Comment:Testing performed by : [facility], [address] [place] [phone] Anion gap 10 2 - 15 mmol/L [facility] Comment:Testing performed by : [facility], [address] [place] [phone] BUN 37(H) 8 - 25 mg/dL [facility] Comment:Testing performed by : [facility], [address] [place] [phone] Creatinine 2.19(H) 0.80 - 1.30 mg/dL [facility] Comment:Testing performed by : [facility], [address] [place] [phone] Glucose 142 70 - 199 mg/dL [facility] [...] revised 2017. Testing performed by: [facility], [address] [place] [phone] Calcium 9.6 8.5 - 10.3 mg/dL [facility] Comment:Testing performed by : [facility], [address] [place] [phone] Bilirubin, total 0.5 0.1 - 1.2 mg/dL [facility] Comment:Testing performed by : [address] [phone] Protein, pl 6.7 6.5 - 8.5 g/dL [facility] Comment:Testing performed by : [address] [phone] Albumin 4.2 3.5 - 5.0 g/dL [facility] Comment:Testing performed by : [facility], [address] [place] [phone] Alk phos 110 40 - 130 Units/L [facility] Comment:Testing performed by : [address] [phone] ALT 13 7 - 55 Units/L [facility] Comment:Testing performed by : [address] [phone] AST 13 10 - 50 Units/L [facility] Comment:Testing performed by : [facility], [address] [place] [phone] Blood specimen (specimen) 11/14/2019 10:07 AM CDT 11/14/2019 10:10 AM CDT us Gautam Cope MD LAB BLOOD ORDERABLES Final Resul t [facility] Department [place] [address] * PSA diagnostic (11/14/2019 10:07 AM CDT) Pathologist [facility] PSA-Total <0.10 <=6.20 ng/mL [facility] Comment: Interpretive Data ?AGE ? [...] Final Resul t Performing Organization Address City/State/[facility] Co de Phone Number [facility] Department [place] [address] documented in this encounter Visit Diagnoses Diagnosis Prostate cancer (HCC) Malignant neoplasm of prostate documented in this encounter Orders Appointment Requests Count Last Ordered Date Fi rst Ordered Date ONCBCN LAB APPOINTMENT 1 11/14/2019 documented in this encounter Care Teams Liner Roll Changer Relationship Specialty Start Date End Date Kraig Ching MD [address] [place] [address] PCP - General 07/10/16 Gautam Cope MD [address] [place] [address] Medical Oncologist/Dietitian Consultant Medical Oncology 08/18/18 Tramaine Roe MD [address] [facility] [address] [place] [address] Referring Physician Urology 08/18/18 Sukhwinder Uribe MD [address] [facility] [address] [place] [address] Consulting Physician Urology 08/18/18 Shay Guillermo MD [address] [facility] [address] [place] [address] Referring Physician Urology 08/18/18 Marsha Landis, RN Registered Nurse 11/17/18 documented as of this encounter
--- OUTSIDE RECORDS SUMMARY | 2024-03-31 11:32 | XMS_ITS | Encounter Summary ---
Author Organization [facility] Address [address] [place] [address] Phone Care Team Providers Care Containers Sales Representative Name Role Phone Kraig Ching MD Primary Care Provider [phone] Gautam Cope MD Unavailable Tramaine Roe MD Unavailable [phone] Sukhwinder Uribe MD Unavailable [phone] Shay Guillermo MD Unavailable [phone] Marsha Landis RN Unavailable Unavailab le Encounter Details Date Type Department Care Team (Latest Contact Info) Description 12/06/2019 9:10 AM CDT Telemedicine [facility] Nephrology [address] [facility] Advanced Medicine 5th [place] [address] [place] [address] Essential hypertension (Primary Dx); CKD [...] on file Legal Sex Male 4:46 PM 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 During the visit, I was located at the outpatient Nephrology Clinic on5th floor [facility] at [facility] and the patient was located at home in the state [facility]. I was present for the entire [...] EGD 10/2017 9. Prostate Cancer in 1999, [id number], status post radical prostatectomy with subsequent external [...] under the skin daily Reports changed to [id number] UNITS UNDER THE SKIN DAILY UTD. ??? [...] with labs. Marie Harkins MD Nephrology fellow [facility] documented in this encounter Plan of [...] Chronic Care Management No change(03/23 1:47 PM INFORMATICS PHYSICIAN LIAISON) No Ingrid Oden, RN Note: Problem: Chronic [...] U - INTERNAL MED-RENAL ?[address] ?[place] [address] 12/07/2019 9:22 AM CDT 12/07/2019 9:23 AM CDT Narrative [facility] - 12/08/2019 12:05 PM CDT 2ND ORDER FASTING:YES FASTING: YES Marie Harkins MD LAB BLOOD ORDERABLES Final Resul t Performing Organization Address [facility] de Phone Number [facility] * COPY(IES) SENT TO: (12/07/2019 9:22 AM CDT) COPY(IES) SENT TO: [facility] Comment: ?WASH U INTERNAL MED RENAL ?[address] ?[place] [address] 12/07/2019 9:22 AM CDT 12/07/2019 9:23 AM CDT Narrative [facility] - 12/08/2019 12:01 PM CDT 2ND ORDER FASTING:YES FASTING: YES Result [facility] Marie Harkins MD LAB BLOOD ORDERABLES Final Resul t Performing Organization Address [facility] de Phone Number [facility] * Urinalysis reflex to microscopic and culture Urine, bladder (12/07/2019 9:22 AM CDT) Color, ur YELLOW YELLOW [facility] Appearance, ur CLEAR CLEAR [facility] Specific gravity 1.006 1.001 - 1.035 [facility] pH, ur 6.5 5.0 - 8.0 [facility] Glucose, ur NEGATIVE NEGATIVE [facility] Bilirubin, ur NEGATIVE NEGATIVE [facility] Ketones, ur NEGATIVE NEGATIVE [facility] Blood, ur NEGATIVE NEGATIVE [facility] Protein, ur, quant NEGATIVE NEGATIVE [facility] Nitrites, ur NEGATIVE NEGATIVE [facility] Leukocyte esterase, ur NEGATIVE NEGATIVE [facility] WBC, ur NONE SEEN < OR = 5 /HPF [facility] RBC, ur NONE SEEN < OR = 2 /HPF [facility] Epithelial cells, squamous, ur NONE SEEN < OR = 5 /HPF [facility] Epithelial cells, transitional CANCELED < OR = 5 /HPF [facility] Comment:Result canceled by t he ancillary. Epithelial cells, renal, ur CANCELED < OR = 3 /HPF [facility] Comment:Result canceled by t he ancillary. Bacteria, ur, quant NONE SEEN NONE SEEN /HPF [facility] Calcium oxalate crystals, ur CANCELED NONE OR FEW /HPF [facility] Comment:Result canceled by t he ancillary. Triple phosphate crystals, ur CANCELED NONE OR FEW /HPF [facility] Comment:Result canceled by t he ancillary. Uric acid crystals, ur CANCELED NONE OR FEW /HPF [facility] Comment:Result canceled by t he ancillary. Amorphous crystals, ur CANCELED NONE OR FEW /HPF [facility] Comment:Result canceled by t he ancillary. Crystals, ur CANCELED NONE SEEN /HPF [facility] Comment:Result canceled by t he ancillary. Hyaline cast NONE SEEN NONE SEEN /LPF [facility] Granular casts, ur CANCELED NONE SEEN /LPF [facility] Comment:Result canceled by t he ancillary. Casts CANCELED NONE SEEN /LPF [facility] Comment:Result canceled by t he ancillary. Yeast, ur CANCELED NONE SEEN /HPF [facility] Comment:Result canceled by t he ancillary. Comments CANCELED [facility] Comment:Result canceled by t he ancillary. Note CANCELED [facility] Comment:Result canceled by t he ancillary. Urine culture NO CULTURE INDICATED [facility] Urine, bladder 12/07/2019 9: 22 AM CDT 12/07/2019 9:23 AM CDT Narrative [facility] - 12/08/2019 12:05 PM CDT 2ND ORDER FASTING:YES FASTING: YES us Marie Harkins MD LAB MICROBIOLOGY - GENERAL ORDER ALAN Final Result [facility] [address] [address] * (ABNORMAL) Protein / creatinine ratio, urine, [...] LAB URINE ORDERABLES Final Resul t [email or web address] [address] [place] [address] documented in this encounter Visit Diagnoses Diagnosis [...] te albuterol HFA (Ventolin HFA) 90 mcg/actuation inhalerIndications:Quality Reviewer hannah obstructive pulmonary disease, unspecified COPD type ([facility]) Inhale 2 puffs every 4 (four) hours [...] documented as of this encounter Care Teams Containers Sales Representative Relationship Specialty Start Date End Date Kraig Ching MD [address] [facility] [address] [place] [address] PCP - General 07/10/16 Gautam Cope MD [address] [facility] [address] [place] [address] Medical Oncologist/Pest Control Service Representative Medical Oncology 08/18/18 Tramaine Roe MD [address] [facility] [address] [place] [address] Referring Physician Urology 08/18/18 Sukhwinder Uribe MD [address] [facility] [address] [place] [address] Consulting Physician Urology 08/18/18 Shay Guillermo MD [address] [facility] [address] [place] [address] Referring Physician Urology 08/18/18 Marsha Landis, RN Registered Nurse 11/17/18 documented as of this encounter
--- OUTSIDE RECORDS SUMMARY | 2024-03-31 11:32 | XMS_ITS | Encounter Summary ---
Author Organization [facility] Address [address] [place] [address] Phone Care Team Providers Care Fish Processor Name Role Phone Kraig Ching MD Primary Care Provider [phone] Gautam Cope MD Unavailable Tramaine Roe MD Unavailable [phone] Sukhwinder Uribe MD Unavailable [phone] Shay Guillermo MD Unavailable [phone] Marsha Landis RN Unavailable Unavailab le Reason for Visit * Reason Onset Date Comments Illness 03/22/2020 Encounter Details Date Type Department Care Team (Late st Contact Info) Description 03/22/2020 Telephone [facility] Oncology [address] [place] [address] Cheyanne Philip RN Illness Social History Tobacco [...] on file Legal Sex Male 4:46 PM SAP DIRECTOR Gender Identity Not on file Sexual Orientation Not on file documented as of this encounter Miscellaneous Notes * Telephone Encounter - Cheyanne Philip RN - 03/22/2020 1:57 PM SAP DIRECTOR Wednesday03/25/20: Pt reports that he feels like [...] the PCP visit to check on him. DIRECTOR DIRECTOR documented in this encounter Plan of [...] to monitor diabetes and kidney status, etc. [facility] Chronic Pain Care Plan Chronic Care Management No change(03/23 1:47 PM SAP DIRECTOR) No Ingrid Oden, SHEA Note: Problem: Chronic Pain Goals: 1. Minimize further functional decline 2. Maximize quality of life 3. Control pain Strategies: - Activity/exercise program recommendation - Conservative stepwise pain medicine strategy with multi-disciplinary approach - Recommend healthy lifestyle strategies and compensatory methods as needed documented as of this encounter Visit Diagnoses Not on filedocumented in this encounter Care Teams Fish Processor Relationship Specialty Start Date End Date Kraig Ching MD [address] [place], [place] [id number] PCP - General 07/10/16 Gautam Cope MD [address] [facility] [address] [place] [address] Medical Oncologist/Utility Worker Production Medical Oncology 08/18/18 Tramaine Roe MD [address] [facility] [address] [place] [address] Referring Physician Urology 08/18/18 Sukhwinder Uribe MD [address] [facility] [address] [place] [address] Consulting Physician Urology 08/18/18 Shay Guillermo MD [address] [facility] [address] [place] [address] Referring Physician Urology 08/18/18 Marsha Landis, RN Registered Nurse 11/17/18 documented as of this encounter
--- OUTSIDE RECORDS SUMMARY | 2024-03-31 11:32 | XMS_ITS | Encounter Summary ---
Author Organization [facility] [employer] [facility] Address [address] [place] [address] Phone Care Team Providers Care Database Developer Name Role Phone Kraig Ching MD Primary Care Provider [phone] Gautam Cope MD Unavailable Tramaine Roe MD Unavailable [phone] Sukhwinder Uribe MD Unavailable [phone] Shay Guillermo MD Unavailable [phone] Marsha Landis RN Unavailable Unavailab le Reason for Visit * Episode Based Medications (Routine) - Authorized Specialty Diagnoses / Procedures Referred By Saleem t Referred To Contact Oncology Diagnoses Prostate cancer (HCC) Procedures OR LEUPROLIDE ACETATE SUSPNSION Leuprolide Every 3 Months - Prostate Gautam Cope MD [address] [facility] [address] [place] [address] Phone: tel: fax: [facility] - Infusion [address] [facility] [address] [place] [address] Referral ID Status Reason Start Date Expiration Date V isits Requested Visits Authorized [id number] Authorized 09/06/2018 07/11/2024 1 50 Encounter Details Date Type Department Care Team (Late st Contact Info) Description 07/23/2020 10:15 AM CDT Lab [facility] Oncology [address] [facility] 7th [place] [address] [place] [id number] Prostate cancer (CMS/HCC) Social History Tobacco Use [...] file Legal Sex Male 4:46 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 [facility] Chronic Pain Care Plan Chronic Care Management No change(03/23 1:47 PM INSPECTOR AND UNLOADER) No Ingrid Oden, RN Note: Problem: Chronic [...] 07/23/2020 10: 23 AM CDT Prostate cancer ([facility]) CBC WITH AUTO DIFFERENTIAL Routine 07/23/2020 10:23 AM CDT Prostate cancer ([facility]) PSA DIAGNOSTIC Routine 07/23/2020 10:23 AM CDT Prostate cancer ([facility]) LACTATE DEHYDROGENASE Routine 07/23/2020 10:23 AM CDT Prostate cancer ([facility]) HEMOGLOBIN A1C Routine 07/23/2020 10:23 AM CDT Prostate cancer ([facility]) COMPREHENSIVE METABOLIC PANEL STAT 07/23/2020 10:23 AM CDT Prostate cancer ([facility]) documented in this encounter Results * (ABNORMAL) Differential, auto (07/23/2020 10:23 AM CDT) Neutrophil abs 7.1(H) 1.8 - 6.6 K/cumm [facility] Comment:Testing performed by : [facility], [address] [place] [phone] Lymphocyte abs 1.2 1.2 - 3.3 K/cumm [facility] Comment:Testing performed by : [facility], [address] [place] [phone] Monocyte abs 0.9 0.2 - 1.2 K/cumm [facility] Comment:Testing performed by : [facility], [address] [place] [phone] Eosinophil abs 0.2 0.0 - 0.5 K/cumm [facility] Comment:Testing performed by : [facility], [address] [place] [phone] Basophil abs 0.0 0.0 - 0.2 K/cumm [facility] Comment:Testing performed by : [facility], [address] [place] [phone] Neutrophil pct 75.9 % [facility] Comment: Interpretive Data Percent cell count reference ranges are not reported, since discordance with absolute values may lead to misinterpretation of CBC data. Current Interpretive Data was last revised on 2017. Testing performed by: [facility], [address] [place] [phone] Lymphocyte pct 12.6 % [facility] Comment: Interpretive Data Percent cell count reference ranges are not reported, since discordance with absolute values may lead to misinterpretation of CBC data. Current Interpretive Data was last revised on 2017. Testing performed by: [facility], [address] [place] [phone] Monocyte pct 9.3 % [facility] Comment:Testing performed by : [facility], [address] [place] [phone] Eosinophil pct 1.8 % [facility] Comment:Testing performed by : [facility], [address] [place] [phone] Basophil pct 0.4 % [facility] Comment:Testing performed by : [facility], [address] [place] [phone] Blood specimen (specimen) 07/23/2020 10:23 AM CDT 07/23/2020 10:24 AM CDT us Gautam Cope MD LAB BLOOD ORDERABLES Final Resul t [facility] Department [place] [address] * (ABNORMAL) Comprehensive metabolic panel (07/23/2020 10:23 AM CDT) Sodium 138 135 - 145 mmol/L [facility] Comment:Testing performed by : [facility], [address] [place] [phone] Potassium, pl 3.9 3.3 - 4.9 mmol/L [facility] Comment:Testing performed by : [facility], [address] [place] [phone] Chloride 102 97 - 110 mmol/L [facility] Comment:Testing performed by : [facility], [address] [place] [phone] CO2 28 22 - 32 mmol/L [facility] Comment:Testing performed by : [facility], [address] [place] [phone] Anion gap 9 2 - 15 mmol/L [facility] Comment:Testing performed by : [facility], [address] [place] [phone] BUN 43(H) 8 - 25 mg/dL [facility] Comment:Testing performed by : [address] [phone] Creatinine 2.59(H) 0.80 - 1.30 mg/dL [facility] Comment:Testing performed by : [facility], [address] [place] [phone] Glucose 99 70 - 199 mg/dL [facility] [...] 2017. Testing performed by: [facility], [address] [place] [phone] Calcium 9.1 8.5 - 10.3 mg/dL [facility] Comment:Testing performed by : [facility], [address] [place], [place] [phone] Bilirubin, total 0.3 0.1 - 1.2 mg/dL [facility] Comment:Testing performed by : [facility], [address] [place] [phone] Protein, pl 6.9 6.5 - 8.5 g/dL [facility] Comment:Testing performed by : [facility], [address] [place] [phone] Albumin 4.2 3.5 - 5.0 g/dL [facility] Comment:Testing performed by : [facility], [address] [place] [phone] Alk phos 120 40 - 130 Units/L [facility] Comment:Testing performed by : [facility], [address] [place] [phone] ALT 12 7 - 55 Units/L [facility] Comment:Testing performed by : [facility], [address] [place] [phone] AST 14 10 - 50 Units/L [facility] Comment:Testing performed by : [address] [phone] Blood specimen (specimen) 07/23/2020 10:23 AM CDT 07/23/2020 10:24 AM CDT us aGutam Cope MD LAB BLOOD ORDERABLES Final Resul t [facility] Department [place] [address] * (ABNORMAL) Hemoglobin A1c (07/23/2020 10:23 AM CDT) Hgb A1C 7.8(H) 4.0 - 5.6 % [facility] Estimated Average Glucose 177 mg/dL [facility] Comment: The ADA recommends reporting an [...] ORDERABLES Final Resul t Performing Organization Address [facility] Co de Phone Number [facility] Department [place] [address] * Lactate dehydrogenase (LD) (07/23/2020 10:23 AM CDT) Pathologist [facility] Lactate dehydrogenase (LDH) 165 100 - 250 Units/L [facility] Comment:Testing performed by : [facility], [address] [place] [phone] Blood specimen (specimen) 07/23/2020 10:23 AM CDT 07/23/2020 10:24 AM CDT us Gautam Cope MD LAB BLOOD ORDERABLES Final Resul t Performing Organization Address City/[facility] Co de Phone Number [facility] Department [place] [address] * (ABNORMAL) CBC with auto differential (07/23/2020 10:23 AM CDT) Pathologist [facility] WBC 9.3 3.8 - 9.8 K/cumm [facility] Comment:Testing performed by : [facility], [address] [place] [phone] Hgb 12.0(L) 13.8 - 17.2 g/dL [facility] Comment:Testing performed by : [facility], [address] [place], [place] [phone] Hct 34.7(L) 40.7 - 50.3 % [facility] Comment:Testing performed by : [facility], [address] [place], [place] [phone] Plt 378 140 - 440 K/cumm [facility] Comment:Testing performed by : [place] [phone] MPV 6.8 6.8 - 10.4 fL [facility] Comment:Testing performed by : [place] [phone] RBC 4.00(L) 4.50 - 5.70 M/cumm [facility] Comment:Testing performed by : [place] [phone] MCV 86.9 80.0 - 97.6 fL [facility] Comment:Testing performed by : [place] [phone] MCH 29.9 26.7 - 33.7 pg [facility] Comment:Testing performed by : [address] [phone] MCHC 34.5 32.7 - 35.5 g/dL [facility] Comment:Testing performed by : [place] [phone] RDW CV 14.5 11.8 - 14.6 % [facility] Comment:Testing performed by : [place] [id number] NRBC abs 0.00 0.00 - 0.01 K/cumm [facility] Comment:Testing performed by : [place] [phone] Blood specimen (specimen) 07/23/2020 10:23 AM CDT 07/23/2020 10:24 AM CDT us Gautam Cope MD LAB BLOOD ORDERABLES Final Resul t [facility] Department [place] [address] * PSA diagnostic (07/23/2020 10:23 AM CDT) [...] ORDERABLES Final Resul t Performing Organization Address City/State/[facility] Co il Phone Number [facility] Department [place] [address] documented in this encounter Visit Diagnoses Diagnosis Prostate cancer (HCC) Malignant neoplasm of prostate documented in this encounter Orders Appointment Requests Count Last Ordered Date Fi rst Ordered Date ONCBCN LAB APPOINTMENT 1 07/23/2020 documented in this encounter Care Teams Database Developer Relationship Specialty Start Date End Date Kraig Ching MD [address] [facility] [address] [place] [address] PCP - General 07/10/16 Gautam Cope MD [address] [facility] [address] [place] [address] Medical Oncologist/Button Pusher Medical Oncology 08/18/18 Tramaine Roe MD [address] [facility] [address] [place] [address] Referring Physician Urology 08/18/18 Sukhwinder Uribe MD [address] [facility] [address] [place] [address] Consulting Physician Urology 08/18/18 Shay Guillermo MD [address] [facility] [address] [place] [address] Referring Physician Urology 08/18/18 Marsha Landis, RN Registered Nurse 11/17/18 documented as of this encounter
--- OUTSIDE RECORDS SUMMARY | 2024-03-31 11:32 | XMS_ITS | Encounter Summary ---
Author Organization [facility] Address [address] [place] [address] Care Team Providers Care Desulphurizer Operator Name Role Phone Kraig Ching MD Primary Care Provider [phone] Gautam Cope MD Unavailable Tramaine Roe MD Unavailable [phone] Sukhwinder Uribe MD Unavailable [phone] Shay Guillermo MD Unavailable Marsha Landis RN Unavailable Unavailab Ilene Kaur RN Unavailable [phone] Encounter Details Date Type Department Care Team (Late st Contact Info) Description 10/10/2019 11:15 AM CDT Telemedicine [facility] [address] [place] [address] Kraig Ching MD [address] [facility] [address] [place] [address] Type 2 diabetes mellitus with [...] on file Legal Sex Male 4:46 PM 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 Gender Identity Not on file Sexual [...] file Gets together: Not on file Attends jainism service: Not on file Active member of [...] With Chronic Kidney Disease Stage III ([facility]) Type 2 Diabetes Mellitus With Stage 3 Chronic Kidney Disease, Without Long-Term Current Use of Insulin ([facility]) Description: YEAR OF ONSET: 1989 Hyperlipidemia Current [...] disease, without long-term current use of insulin ([facility]) (Primary) Assessment & Plan: Reviewed HgbA1c 11 on 08/22/19. Increase Insulin to 14 units. Refer to Endocrinology. Orders: - Ambulatory referral to Endocrinology; Future - Hemoglobin A1c; Future Hypertensive kidney disease with chronic kidney disease stage III ([facility]) Assessment & Plan: Blood pressure is elevated. [...] to UNITS UNDER THE SKIN DAILY UTD. Kraig [...] long-term current use ofinsulin ([facility]/HCC) (HCC) (Resolved 10/02/2023) Reviewed HgbA1c 11 [...] to monitor diabetes and kidney status, etc. [facility] Chronic Pain Care Plan Chronic Care Management No change(03/23 1:47 PM 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) No Ingrid Oden, RN Note: Problem: [...] disease, without long-term current use of insulin ([facility]) LIPID PANEL Routine 12/07/2019 9:19 AM CDT [...] LDL-C. Héctor SS et al. LISA. 2013;310(19): 3572-2608 (http://education.[employer]/faq/NVZ205) Chol/HDL ratio 6.1(H) <5.0 (calc) [facility] [...] ORDERABLES Final Re sult Performing Organization Address [facility] Co de Phone Number [facility] [address] [place] [address] * (ABNORMAL) Hemoglobin A1c (12/07/2019 9:19 AM [...] Ching MD LAB BLOOD ORDERABLES Final Re [facility] Performing Organization Address [facility] Co de Phone Number [facility] [address] [place] [address] * (ABNORMAL) Comprehensive metabolic panel (12/07/2019 9:19 [...] approximately 13% higher for people identified as -Irish. eGFR NON-AFR. CITIZEN OF [place] 39(L) > OR = 60 mL/min/1. 73m2 [...] BLOOD ORDERABLES Final Re sult ROSIO [facility] [address] [place] [address] documented in this encounter Visit Diagnoses Diagnosis [...] documented as of this encounter Care Teams Desulphurizer Operator Relationship Specialty Start Date End Date Kraig Ching MD [address] [facility] [address] [place] [address] PCP - General 07/10/16 Gautam Cope MD [address] [facility] [address] [place] [address] Medical Oncologist/Liner Machine Operator Medical Oncology 08/18/18 Tramaine Roe MD [address] [facility] [address] [place] [address] Referring Physician Urology 08/18/18 Sukhwinder Uribe MD [address] [facility] [address] [place] [address] Consulting Physician Urology 08/18/18 [place] [address] [place] [address] [address] [place] [address] Referring Physician Urology 08/18/18 Marsha Landis, RN Registered Nurse 11/17/18 Ilene Fragoso, RN [address] [place] [address] Analytical Research Program Manager 12/23/18 11/01/19 documented as of this encounter
--- OUTSIDE RECORDS SUMMARY | 2024-03-31 11:32 | XMS_ITS | Encounter Summary ---
Author Organization [facility] Address [address] [place] [address] Phone Care Team Providers Care Yard Operator Name Role Phone Kraig Ching MD Primary Care Provider [phone] Gautam Cope MD Unavailable Tramaine Roe MD Unavailable [phone] Sukhwinder Uribe MD Unavailable [phone] Shay Guillermo MD Unavailable [phone] Marsha Landis RN Unavailable Unavailab le Encounter Details Date Type Department Care Team (Late st Contact Info) Description 03/13/2020 10:30 AM CUSHION PADDER Telemedicine [facility] Nephrology [address] [facility] Advanced Medicine 5th [place] [address] [place] [address] Stage 3a chronic kidney disease [...] file Legal Sex Male 4:46 PM CUSHION PADDER Gender Identity Not on file Sexual Orientation Not on file documented as of this encounter Last Filed Vital Signs Vital Sign Reading Time Taken Comments Blood Pressure 194/84 03/13/2020 10:00 AM CUSHION PADDER Pulse - - Temperature 36.7 ??C (98.1 ??F) 03/13/2020 10:[address] Respiratory Rate - - Oxygen Saturation - - Inhaled Oxygen Concentration - - Weight 93.9 kg (207 lb) 03/13/2020 10:00 AM CUSHION PADDER Height - - Body Mass Index 28.35 12/14/2019 11:01 AM CDT documented in this encounter Patient Instructions * Patient Instructions* Marie Harkins MD - 03/13/2020 10:30 AM CUSHION PADDER We have increased your amlodipine to 10 mg daily (from 2.5 mg daily) due to elevated BP. Prescription has been sent to your pharmacy. ION PADDER documented in this encounter Ordered Prescriptions Prescription [...] EGD 10/2017 9. Prostate Cancer in 1999, [id number], status post radical prostatectomy with subsequent external beam radiation therapy. Now with rising PSA and newly discovered spinal metastasis, meeting with oncology on 09/06/2018 REASON FOR OFFICE VISIT: Follow up for CKD INTERVAL HISTORY: Mr. aDvid Drew is a 79 year-old gentleman who [...] under the skin daily Reports changed to [id number] UNITS UNDER THE SKIN DAILY UTD. ??? [...] with labs. Marie Harkins MD Nephrology fellow [facility] Nephrology Cosigned by Lin Guerrero MD at 04/06/2020 8:39 PM CUSHION PADDER ION PADDER Associated attestation - Lin Guerrero MD - 04/06/2020 8:39 PM CUSHION PADDER This was a telemedicine visit with David Drew which took place via Real- time video connection ([employer], [employer] or similar). During the visit, I was located at the outpatient Nephrology Clinic on5th floor CAM at [facility] and the patient was located at home in the [facility]. I was present for the [...] Care Management No change(03/23 1:47 PM CUSHION PADDER) No Ingrid Oden, RN Note: Problem: Chronic [...] documented as of this encounter Care Teams Yard Operator Relationship Specialty Start Date End Date Kraig Ching MD [address] [place] [address] PCP - General 07/10/16 Gautam Cope MD [address] [place] [address] Medical Oncologist/A Class Lineman Medical Oncology 08/18/18 Tramaine Roe MD [address] [place] [address] Referring Physician Urology 08/18/18 Sukhwinder Uribe MD [address] [place] [address] Consulting Physician Urology 08/18/18 Shay Guillermo MD [address] [place] [address] Referring Physician Urology 08/18/18 Marsha Landis, RN Registered Nurse 11/17/18 documented as of this encounter
--- OUTSIDE RECORDS SUMMARY | 2024-03-31 11:32 | XMS_ITS | Encounter Summary ---
Author Organization [facility] Address [address] [place] [address] Care Team Providers Care Neon Sign Servicer Name Role Phone Kraig Ching MD Primary Care Provider [phone] Gautam Cope MD Unavailable Tramaine Roe MD Unavailable [phone] Sukhwinder Uribe MD Unavailable Shay Guillermo MD Unavailable [phone] Marsha Landis RN Unavailable Unavailab le Reason for Visit * Reason Comments Abdominal Pain Encounter Details Date Type Department Care Team (Late st Contact Info) Description 03/27/2020 10:15 AM [facility] Telemedicine [facility] [address] [facility] [address] [facility] [address] [place] [address] Katherine Del Rio PA [address] [facility] [address] [place] [address] Medicare annual wellness visit, subsequent [...] on file Legal Sex Male 4:46 PM BROTH SETTER Gender Identity Not on file Sexual Orientation Not on file documented as of this encounter Last Filed Vital Signs Vital Sign Reading Time Taken Comments Blood Pressure 145/78 03/27/2020 9:17 AM BROTH SETTER Pulse 67 03/27/2020 9:17 AM BROTH SETTER Temperature 36.2 ??C (97.2 ??F) 03/27/2020 9:17 AM CS T Respiratory Rate - - Oxygen Saturation - - Inhaled Oxygen Concentration - - Weight 93 kg (205 lb) 03/27/2020 9:17 AM BROTH SETTER Height 180.3 cm (5' 11 ) 03/27/2020 9:17 AM BROTH SETTER Body Mass Index 28.59 03/27/2020 9:17 AM BROTH SETTER documented in this encounter Patient Instructions * Patient Instructions* Katherine Del Rio PA - 03/27/2020 10:15 AM BROTH SETTER Health Maintenance Topics with due status: Overdue [...] Topic Last Completion Date Influenza Vaccine 02/06/2020 H SETTER documented in this encounter Progress Notes * Katherine Del Rio PA - 03/27/2020 10:15 AM CST MEDICARE SUBSEQUENT ANNUAL WELLNESS VISIT David Wei This was a telemedicine visit with David Wei and his which took place via Real-time video connection (Note, [employer] or similar). During the visit, I was located at home and the patient was located at home. The session started at 1013 and ended at 1048. The patient has been informed that the visit may not be secure and acknowledged the information. I have explained the option of participating in a telephone or video visit during the [facility] to the patient. After [...] dilated eye exam. He will have the alarm signal operator's office send us a report. 2. Atrial fibrillation. Denies palpitations, SOB/GARCIA or LE swelling. 3. HLD. Compliant with pravastatin. Last LDL 145. 4. HTN. He is prescribed amlodipine, lisinopril, chlorthalidone and carvedilol. Home BP has been running in the 180-190/80-90. Hypertension is complicated by CKD. ??His creatinine was improved to 1.65 on 12/07/19. His motion picture film examiner titrated amlodipine to 10 mg 3 weeks ago. Current BP 145/70. 5. Back Pain. He has DJD and a herniated disk. He follows with pain management. He needs a [employer] Wel[employer] Theranosard. 6. Prostate cancer. ??Originally diagnosed in 1999. [...] file Gets together: Not on file Attends episcopal service: Not on file Active member of [...] under the skin daily Reports changed to [id number] UNITS UNDER THE SKIN DAILY UTD., Disp: [...] - General Picus, MD Gautam as Medical Oncologist/Health Promotion Manager (Medical Oncology) Tramaine Roe MD as Referring Physician (Urology) Sukhwinder Uribe MD as Consulting Physician (Urology) Shay Guillermo MD as Referring Physician (Urology) Marsha Landis RN as Registered Nurse Primary Pharmacy/DME suppliers: [id number] - [place], [place] - [address] AT [facility] ([place] [address]) & [address] [facility] [address] [facility] [place], [place] - [address] [facility] [address] [facility] [address] Detection of Cognitive Impairment: The patient does [...] unspecified whether stage 3a or 3b CKD (CMS/[facility]) Comments: Uncontrolled. Home blood sugars suggest improving glycemic control. Continue current medications and low carb diet. He will have his most recent eye exam piyush Orders: - Albumin Creatinine Ratio, Urine; Future Essential hypertension Comments: Close to goal. Continue current medications and management per nephrology. Hyperlipidemia associated with type 2 diabetes mellitus (CMS/[facility]) Comments: Recent lipid pane reviewed. Intolerant of high potency statins. Continue pravastatin. PAF (paroxysmal atrial fibrillation) (CMS/HCC) Comments: Asymptomatic. Prostate cancer (CMS/[facility]) Comments: Continue management per oncology. Spinal stenosis [...] update and summary of today's office visit. H SETTER H SETTER documented in this encounter Plan of Treatment Scheduled Orders Name Type Priority Associated Diagnoses Orde r Schedule Albumin Creatinine Ratio, Urine Lab Routine Type 2 diabetes mellitus with stage 3 chronic kidney disease, without long-term current use of insulin, unspecified whether stage 3a or 3b CKD ([facility]) 1 Occurrences starting 03/27/2020 until 03/27/2021 documented [...] Chronic Care Management No change(03/23 1:47 PM BROTH SETTER) Ingrid Mcdaniels, RN Note: Problem: Chronic Pain [...] claudication documented in this encounter Care Teams Neon Sign Servicer Relationship Specialty Start Date End Date Kraig Ching MD [address] [place] [address] PCP - General 07/10/16 Gautam Cope MD [address] [place] [address] Medical Oncologist/Health Promotion Manager Medical Oncology 08/18/18 Tramaine Roe MD [address] [place] [address] Referring Physician Urology 08/18/18 Sukhwinder Uribe MD [address] [place] [address] Consulting Physician Urology 08/18/18 Shay Guillermo MD [address] [place] [address] Referring Physician Urology 08/18/18 Marsha Landis, RN Registered Nurse 11/17/18 documented as of this encounter
--- OUTSIDE RECORDS SUMMARY | 2024-03-31 11:32 | XMS_ITS | Encounter Summary ---
Author Organization [facility] Address [address] [place] [address] Phone Care Team Providers Care Geography Professor Name Role Phone Kraig Ching MD Primary Care Provider [phone] Gautam Cope MD Unavailable Tramaine Roe MD Unavailable [phone] Sukhwinder Uribe MD Unavailable [phone] Shay Guillermo MD Unavailable [phone] Marsha Landis RN Unavailable Unavailab Reason for Visit * Reason Onset Date Comments Allscripts reminder 08/15/2020 Encounter Details Date Type Department Care Team (Late st Contact Info) Description 08/15/2020 Documentation [facility] Gastroenterology [address] [facility] Advanced Medicine 8th [place] [address] [place] [address] Cnidy Valdes LPN Allscripts reminder Social History Tobacco [...] file Legal Sex Male 4:46 PM LINE SERVER Gender Identity Not on file Sexual Orientation Not on file documented as of this encounter Progress Notes * Cindy Valdes LPN - 08/15/2020 11:50 AM CDT Per Allscripts reminder, pt was due for repeat colonoscopy in Jan 2020. Our records do not indicatethat pt has had repeat procedure. Letter mailed to pt, PCP cc'd. Reminder moved to [facility] Open Access Procedure Pool. documented in [...] Care Management No change(03/23 1:47 PM LINE SERVER) No Ingrid Oden, SHEA Note: Problem: Chronic Pain Goals: 1. Minimize further functional decline 2. Maximize quality of life 3. Control pain Strategies: - Activity/exercise program recommendation - Conservative stepwise pain medicine strategy with multi-disciplinary approach - Recommend healthy lifestyle strategies and compensatory methods as needed documented as of this encounter Visit Diagnoses Not on filedocumented in this encounter Care Teams Geography Professor Relationship Specialty Start Date End Date Kraig Ching MD [address] [facility] [address] [place] [address] PCP - General 07/10/16 Gautam Cope MD [address] [facility] [address] [place] [address] Medical Oncologist/Cytotechnologist Supervisor Medical Oncology 08/18/18 [place] [address] [place] [address] [address] [place] [address] Referring Physician Urology 08/18/18 Sukhwinder Uribe MD [address] [facility] [address] [place] [address] Consulting Physician Urology 08/18/18 Shay Guillermo MD [address] [facility] [address] [place] [address] Referring Physician Urology 08/18/18 Marsha Landis, RN Registered Nurse 11/17/18 documented as of this encounter
--- OUTSIDE RECORDS SUMMARY | 2024-03-31 11:32 | XMS_ITS | Encounter Summary ---
Author Organization [facility] Address [address] [place] [address] Phone Care Team Providers Care Varnisher Plasticoater Name Role Phone Kraig Ching MD Primary Care Provider [phone] Gautam Cope MD Unavailable Tramaine Roe MD Unavailable [phone] Sukhwinder Uribe MD Unavailable [phone] Shay Guillermo MD Unavailable [phone] Marsha Landis RN Unavailable Unavailab le Reason for Visit * Episode Based Medications (Routine) - Authorized Specialty Diagnoses / Procedures Referred By Saleem t Referred To Contact Oncology Diagnoses Prostate cancer (HCC) Procedures ID LEUPROLIDE ACETATE SUSPNSION Leuprolide Every 3 Months - Prostate Gautam Cope MD [address] [facility] [address] [place] [address] Phone: tel: fax: [facility] - [facility] [address] [facility] [address] [place] [address] Referral ID Status Reason Start Date Expiration Date V isits Requested Visits Authorized [id number] Authorized 09/06/2018 07/11/2024 1 50 Encounter Details Date Type Department Care Team (Late st Contact Info) Description 02/06/2020 11:30 AM CDT Infusion [facility] Oncology [address] [facility] Advanced Medicine 7th [place] [address] Prostate cancer (CMS/HCC) (Primary Dx) Social History [...] on file 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 [facility] Chronic Pain Care Plan Chronic Care Management No change(03/23 1:47 PM LEATHER SOFTENER) No Ingrid Oden RN Note: Problem: Chronic [...] 01/11 documented in this encounter Care Teams Varnisher Plasticoater Relationship Specialty Start Date End Date Karig Ching MD [address] [place] [address] PCP - General 07/10/16 Gautam Cope MD [id number] [place] [address] Medical Oncologist/Operations Administrator Medical Oncology 08/18/18 Tramaine Roe MD [address] [address] Referring Physician Urology 08/18/18 Sukhwinder Uribe MD [address] [address] Consulting Physician Urology 08/18/18 Shay Guillermo MD [id number] [place] [address] Referring Physician Urology 08/18/18 Marsha Landis, RN Registered Nurse 11/17/18 documented as of this encounter
--- OUTSIDE RECORDS SUMMARY | 2024-03-31 11:32 | XMS_ITS | Encounter Summary ---
Author Organization [facility] [employer] [facility] Address [address] [place] [address] Phone Care Team Providers Care Building Carpenter Name Role Phone Kraig Ching MD Primary Care Provider [phone] Gautam Cope MD Unavailable Tramaine Roe MD Unavailable [phone] Sukhwinder Uribe MD Unavailable [phone] Shay Guillermo MD Unavailable [phone] Marsha Landis RN Unavailable Unavailab le Reason for Visit * Episode Based Medications (Routine) - Authorized Specialty Diagnoses / Procedures Referred By Saleem t Referred To Contact Oncology Diagnoses Prostate cancer (HCC) Procedures DE LEUPROLIDE ACETATE SUSPNSION Leuprolide Every 3 Months - Prostate Gautam Cope MD [address] [facility] [address] [place] [address] Phone: tel: fax: [facility] - Infusion [address] 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 Gender Identity Not on file Sexual [...] Chronic Care Management No change(03/23 1:47 PM LIBERAL ARTS TEACHER) No Ingrid Oden, RN Note: Problem: [...] Comments HEMOGLOBIN A1C Routine 04/30/2020 10:17 AM LIBERAL ARTS TEACHER Prostate cancer ([facility]/HCC) DIFFERENTIAL AUTO Routine 04/30/2020 10: 07 AM LIBERAL ARTS TEACHER Prostate cancer (CMS/HCC) CBC WITH AUTO DIFFERENTIAL Routine 04/30/2020 10:07 AM LIBERAL ARTS TEACHER Prostate cancer (CMS/HCC) PSA DIAGNOSTIC Routine 04/30/2020 10:07 AM LIBERAL ARTS TEACHER Prostate cancer (CMS/HCC) LIPASE Routine 04/30/2020 10:07 AM LIBERAL ARTS TEACHER Prostate cancer (CMS/HCC) LACTATE DEHYDROGENASE Routine 04/30/2020 10:07 AM LIBERAL ARTS TEACHER Prostate cancer (CMS/HCC) AMYLASE Routine 04/30/2020 10:07 AM LIBERAL ARTS TEACHER Prostate cancer (CMS/HCC) COMPREHENSIVE METABOLIC PANEL Routine 04/30/2020 10:07 AM LIBERAL ARTS TEACHER Prostate cancer ([facility]/HCC) documented in this encounter Results * (ABNORMAL) Hemoglobin A1c (04/30/2020 10:17 AM LIBERAL ARTS TEACHER) Hgb A1C 8.3(H) 4.0 - 5.6 % [facility] Estimated Average Glucose 192 mg/dL [facility] Comment: The ADA recommends reporting an estimated Average Glucose (eAG) with all Hemoglobin A1c results using the equation derived from a study of 507 normal and diabetic adults. ??Minority populations were underrepresented and children were not included. ?? (Diabetes Care 31:4898-5592, 2008). ??The eAG is not equivalent to a fasting glucose. Blood specimen (specimen) 04/30/2020 10:17 AM LIBERAL ARTS TEACHER 04/30/2020 10:31 AM LIBERAL ARTS TEACHER us Gautam Cope MD LAB BLOOD ORDERABLES Final Resul t [facility] One [facility] [place] [address] * (ABNORMAL) Differential, auto (04/30/2020 10:07 AM LIBERAL ARTS TEACHER) Pathologist [facility] Neutrophil abs 7.2(H) 1.8 - 6.6 K/cumm [facility] Comment:Testing performed by : [facility], [address] [place] [phone] Lymphocyte abs 1.7 1.2 - 3.3 K/cumm [facility] Comment:Testing performed by : [facility], [address] [place] [phone] Monocyte abs 1.0 0.2 - 1.2 K/cumm [facility] Comment:Testing performed by : [facility], [address] [place] [phone] Eosinophil abs 0.2 0.0 - 0.5 K/cumm [facility] Comment:Testing performed by : [facility], [address] [place] [phone] Basophil abs 0.0 0.0 - 0.2 K/cumm [facility] Comment:Testing performed by : [facility], [address] [place] [phone] Neutrophil pct 71.6 % [facility] Comment: Interpretive Data Percent cell count reference ranges are not reported, since discordance with absolute values may lead to misinterpretation of CBC data. Current Interpretive Data was last revised on 2017. Testing performed by: [facility], [address] [place] [phone] Lymphocyte pct 16.6 % [facility] Comment: Interpretive Data Percent cell count reference ranges are not reported, since discordance with absolute values may lead to misinterpretation of CBC data. Current Interpretive Data was last revised on 2017. Testing performed by: [facility], [address] [place] [phone] Monocyte pct 10.0 % [facility] Comment:Testing performed by : [facility], [address] [place] [phone] Eosinophil pct 1.5 % [facility] Comment:Testing performed by : [facility], [address] [place] [phone] Basophil pct 0.3 % [facility] Comment:Testing performed by : [facility], [address] [place] [phone] Blood specimen (specimen) 04/30/2020 10:07 AM LIBERAL ARTS TEACHER 04/30/2020 10:19 AM LIBERAL ARTS TEACHER us Gautam Cope MD LAB BLOOD ORDERABLES Final Resul t Performing Organization Address [facility] [place] Phone Number [facility] One [facility] Department [place] [address] * Amylase (04/30/2020 10:07 AM LIBERAL ARTS TEACHER) Amylase 42 30 - 99 Units/L [facility] Comment:Testing performed by : [facility], [address] [place] [phone] Blood specimen (specimen) 04/30/2020 10:07 AM LIBERAL ARTS TEACHER 04/30/2020 10:19 AM LIBERAL ARTS TEACHER us Gautam Cope MD LAB BLOOD ORDERABLES Final Resul t Performing Organization Address City/State/[facility] de Phone Number [facility] of Laboratories [place], [place] [id number] * Lipase (04/30/2020 10:07 AM LIBERAL ARTS TEACHER) Pathologist [facility] Lipase 35 10 - 99 Units/L [facility] Comment:Testing performed by : [facility], [address] [place] [phone] Blood specimen (specimen) 04/30/2020 10:07 AM LIBERAL ARTS TEACHER 04/30/2020 10:19 AM LIBERAL ARTS TEACHER us Gautam Cope MD LAB BLOOD ORDERABLES Final Resul t Performing Organization Address [facility] de Phone Number [facility] [place] [address] * Lactate dehydrogenase (LD) (04/30/2020 10:07 AM LIBERAL ARTS TEACHER) [facility] Lactate dehydrogenase (LDH) 170 100 - 250 Units/L [facility] Comment:Testing performed by : [facility], [address] [place] [phone] Blood specimen (specimen) 04/30/2020 10:07 AM LIBERAL ARTS TEACHER 04/30/2020 10:19 AM LIBERAL ARTS TEACHER us Gautam Cope MD LAB BLOOD ORDERABLES Final Resul t Performing Organization Address [facility] de Phone Number [facility] [place] [address] * (ABNORMAL) CBC with auto differential (04/30/2020 10:07 AM LIBERAL ARTS TEACHER) [facility] WBC 10.0(H) 3.8 - 9.8 K/cumm [facility] Comment:Testing performed by : [facility], [address] [place] [phone] Hgb 12.1(L) 13.8 - 17.2 g/dL [facility] Comment:Testing performed by : [facility], [address] [place], [place] [phone] Hct 37.0(L) 40.7 - 50.3 % [facility] Comment:Testing performed by : [place] [phone] Plt 439 140 - 440 K/cumm [facility] Comment:Testing performed by : [place] [phone] MPV 6.7(L) 6.8 - 10.4 fL [facility] Comment:Testing performed by : [place] [id number] RBC 4.18(L) 4.50 - 5.70 M/cumm [facility] Comment:Testing performed by : [place] [address] MCV 88.4 80.0 - 97.6 fL [facility] Comment:Testing performed by : [place] [id number] MCH 29.0 26.7 - 33.7 pg [facility] Comment:Testing performed by : [place] [phone] MCHC 32.8 32.7 - 35.5 g/dL [facility] Comment:Testing performed by : [place] [phone] RDW CV 14.0 11.8 - 14.6 % [facility] Comment:Testing performed by : [place] [id number] NRBC abs 0.01 0.00 - 0.01 K/cumm [facility] Comment:Testing performed by : [place] [phone] Blood specimen (specimen) 04/30/2020 10:07 AM LIBERAL ARTS TEACHER 04/30/2020 10:19 AM LIBERAL ARTS TEACHER us Gautam Cope MD LAB BLOOD ORDERABLES Final Resul t [facility] [place] [address] * (ABNORMAL) Comprehensive metabolic panel (04/30/2020 10:07 AM LIBERAL ARTS TEACHER) Sodium 139 135 - 145 mmol/L [facility] Comment:Testing performed by : [facility], [address] [place] [phone] Potassium, pl 4.1 3.3 - 4.9 mmol/L [facility] Comment:Testing performed by : [facility], [address] [place] [phone] Chloride 99 97 - 110 mmol/L [facility] Comment:Testing performed by : [facility], [address] [place] [phone] CO2 33(H) 22 - 32 mmol/L [facility] Comment:Testing performed by : [facility], [address] [place] [phone] Anion gap 7 2 - 15 mmol/L [facility] Comment:Testing performed by : [facility], [address] [place] [phone] BUN 32(H) 8 - 25 mg/dL [facility] Comment:Testing performed by : [facility], [address] [place] [phone] Creatinine 1.83(H) 0.80 - 1.30 mg/dL [facility] Comment:Testing performed by : [facility], [address] [place] [phone] Glucose 125 70 - 199 mg/dL [facility] Comment: Interpretive Data Fasting glucose >/= [...] was last revised 2017. Testing performed by: [facility], [address] [place] [phone] Calcium 9.9 8.5 - 10.3 mg/dL [facility] Comment:Testing performed by : [facility], [address] [place] [phone] Bilirubin, total 0.5 0.1 - 1.2 mg/dL [facility] Comment:Testing performed by : [facility], [address] [place] [phone] Protein, pl 7.6 6.5 - 8.5 g/dL [facility] Comment:Testing performed by : [facility], [address] [place] [phone] Albumin 4.5 3.5 - 5.0 g/dL [facility] Comment:Testing performed by : [facility], [address] [place] [phone] Alk phos 115 40 - 130 Units/L [facility] Comment:Testing performed by : [facility], [address] [place] [phone] ALT 10 7 - 55 Units/L [facility] Comment:Testing performed by : [facility], [address] [place] [phone] AST 11 10 - 50 Units/L [facility] Comment:Testing performed by : [facility], [address] [place] [phone] Blood specimen (specimen) 04/30/2020 10:07 AM LIBERAL ARTS TEACHER 04/30/2020 10:19 AM LIBERAL ARTS TEACHER us Gautam Cope MD LAB BLOOD ORDERABLES Final Resul t [facility] One [facility] [place] [address] * PSA diagnostic (04/30/2020 10:07 AM LIBERAL ARTS TEACHER) PSA-Total <0.10 <=6.20 ng/mL [facility] Comment: Interpretive Data ?AGE ? SEX ?REFERENCE INTERVAL 0 minutes-150 years ?Female ?None 0 minutes-49 years ? Male ?None ? 50-59 years ? Male ?0-3.90 ? 60-69 years ? Male ?0-5.40 ? 70-79 years ? Male ?0-6.20 ? 80-150 years ?Male ?0-6.20 Current interpretive data last revised 2017. Blood specimen (specimen) 04/30/2020 10:07 AM LIBERAL ARTS TEACHER 04/30/2020 10:34 AM LIBERAL ARTS TEACHER us Gautam Cope MD LAB BLOOD ORDERABLES Final Resul t Performing Organization Address City/State/[facility] Co de Phone Number [facility] One [facility] [place] [address] documented in this encounter Visit Diagnoses Diagnosis Prostate cancer (HCC) Malignant neoplasm of prostate documented in this encounter Orders Appointment Requests Count Last Ordered Date Fi rst Ordered Date ONCBCN LAB APPOINTMENT 1 04/30/2020 documented in this encounter Care Teams Building Carpenter Relationship Specialty Start Date End Date Kraig Ching MD [address] [place] [address] PCP - General 07/10/16 Gautam Cope MD [address] [place] [address] Medical Oncologist/Conservation Specialist Medical Oncology 08/18/18 Tramaine Roe MD [address] [place] [address] Referring Physician Urology 08/18/18 Sukhwinder Uribe MD [address] [facility] [address] [place] [address] Consulting Physician Urology 08/18/18 Shay Guillermo MD [address] [facility] [address] [place] [address] Referring Physician Urology 08/18/18 Marsha Landis, RN Registered Nurse 11/17/18 documented as of this encounter
--- OUTSIDE RECORDS SUMMARY | 2024-03-31 11:32 | XMS_ITS | Encounter Summary ---
Author Organization [facility] [employer] of [facility] Address [address] [place] [address] Phone Care Team Providers Care Corporate Representative Name Role Phone Kraig Ching MD Primary Care Provider [phone] Gautam Cope MD Unavailable Tramaine Roe MD Unavailable [phone] Sukhwinder Uribe MD Unavailable [phone] Shay Guillermo MD Unavailable [phone] Marsha Landis RN Unavailable Unavailab le Reason for Visit * Episode Based Medications (Routine) - Authorized Specialty Diagnoses / Procedures Referred By Saleem t Referred To Contact Oncology Diagnoses Prostate cancer (HCC) Procedures ID LEUPROLIDE ACETATE SUSPNSION Leuprolide Every 3 Months - Prostate Gautam Cope MD [address] [facility] [address] [place] [address] Phone: tel: fax: [facility] - Infusion [address] [facility] Floor 5 [place] [address] Referral ID Status Reason Start Date Expiration Date V isits Requested Visits Authorized [id number] Authorized 09/06/2018 07/11/2024 1 50 Encounter Details Date Type Department Care Team (Late st Contact Info) Description 11/14/2019 12:30 PM CDT Infusion 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 [facility] Chronic Pain Care Plan Chronic Care Management No change(03/23 1:47 PM SENIOR POLICY ANALYST) No Ingrid Oden, SHEA Note: Problem: [...] 07/2019 documented in this encounter Care Teams Corporate Representative Relationship Specialty Start Date End Date Kraig Ching MD [address] [place] [address] PCP - General 07/10/16 Gautam Cope MD [address] [place] [address] Medical Oncologist/Grinder Operator [employer] Medical Oncology 08/18/18 Tramaine Roe MD [address] [place] [address] Referring Physician Urology 08/18/18 Sukhwinder Uribe MD [address] [place] [address] Consulting Physician Urology 08/18/18 Shay Guillermo MD [address] [place] [address] Referring Physician Urology 08/18/18 Marsha Landis, RN Registered Nurse 11/17/18 documented as of this encounter
--- OUTSIDE RECORDS SUMMARY | 2024-03-31 11:32 | XMS_ITS | Encounter Summary ---
Author Organization [facility] Address [address] [place] [address] Phone Care Team Providers Care Butt Maker Name Role Phone Kraig Ching MD Primary Care Provider [phone] Gautam Cope MD Unavailable Tramaine Roe MD Unavailable [phone] Sukhwinder Uribe MD Unavailable [phone] Shay Guillermo MD Unavailable [phone] Marsha Landis RN Unavailable Unavailab le Reason for Visit * Episode Based Medications (Routine) - Authorized Specialty Diagnoses / Procedures Referred By Saleem narvaez Referred To Contact Oncology Diagnoses Prostate cancer (HCC) Procedures [facility] LEUPROLIDE ACETATE SUSPNSION Leuprolide Every 3 Months - Prostate Gautam Cope MD [address] [facility] [address] [place] [address] Phone: tel: fax: [facility] - Infusion [address] [facility] [address] 5 [place] [address] Referral ID Status Reason Start Date Expiration Date V isits Requested Visits Authorized [id number] Authorized 09/06/2018 07/11/2024 1 50 Encounter Details Date Type Department Care Team (Late st Contact Info) Description 02/06/2020 10:30 AM CDT Office Visit [facility] Oncology [address] [place] [address] 7th [place] [address] [place] [id number] Gautam Cope MD [address] [facility] [address] [place] [address] Prostate cancer (CMS/HCC) (Primary Dx); Need for [...] on file Legal Sex Male 4:46 PM 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 He ended up with a radical prostatectomy, performed by Dr. 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 [...] - 02/06/2020 06:54 PM Gautam Cope M.D. sheet metal fabricator GLORIA/lul documented in this encounter Plan of [...] Chronic Care Management No change(03/23 1:47 PM PROBATION COUNSELOR) No Ingrid Oden, SHEA Note: Problem: Chronic Pain Goals: 1. Minimize further functional decline 2. Maximize quality of life 3. Control pain Strategies: - Activity/exercise program recommendation - Conservative stepwise pain medicine strategy with multi-disciplinary approach - Recommend healthy lifestyle strategies and compensatory methods as needed documented as of this encounter Results * PSA diagnostic (04/30/2020 10:07 AM PROBATION COUNSELOR) PSA-Total <0.10 <=6.20 ng/mL [facility] Comment: Interpretive Data ?AGE ? SEX ?REFERENCE INTERVAL 0 minutes-150 years ?Female ?None 0 minutes-49 years ? Male ?None ? 50-59 years ? Male ?0-3.90 ? 60-69 years ? Male ?0-5.40 ? 70-79 years ? Male ?0-6.20 ? 80-150 years ?Male ?0-6.20 Current interpretive data last revised 2017. Blood specimen (specimen) 04/30/2020 10:07 AM PROBATION COUNSELOR 04/30/2020 10:34 AM PROBATION COUNSELOR us Gautam Cope MD LAB BLOOD ORDERABLES Final Resul t [facility] Department [place] [address] * (ABNORMAL) Comprehensive metabolic panel (04/30/2020 10:07 AM PROBATION COUNSELOR) Sodium 139 135 - 145 mmol/L [facility] Comment:Testing performed by : [facility], [address] [place] [phone] Potassium, pl 4.1 3.3 - 4.9 mmol/L [facility] Comment:Testing performed by : [facility], [address] [place] [phone] Chloride 99 97 - 110 mmol/L [facility] Comment:Testing performed by : [facility], [address] [place] [phone] CO2 33(H) 22 - 32 mmol/L [facility] Comment:Testing performed by : [facility], [address] [place] [phone] Anion gap 7 2 - 15 mmol/L [facility] Comment:Testing performed by : [facility], [address] [place] [phone] BUN 32(H) 8 - 25 mg/dL [facility] Comment:Testing performed by : [facility], [address] [place] [phone] Creatinine 1.83(H) 0.80 - 1.30 mg/dL [facility] Comment:Testing performed by : [facility], [address] [place] [phone] Glucose 125 70 - 199 mg/dL [facility] [...] was last revised 2017. Testing performed by: [address] [phone] Calcium 9.9 8.5 - 10.3 mg/dL [facility] Comment:Testing performed by : [address] [phone] Bilirubin, total 0.5 0.1 - 1.2 mg/dL [facility] Comment:Testing performed by : [facility], [address] [place] [phone] Protein, pl 7.6 6.5 - 8.5 g/dL [facility] Comment:Testing performed by : [address] [phone] Albumin 4.5 3.5 - 5.0 g/dL [facility] Comment:Testing performed by : [address] [address] Alk phos 115 40 - 130 Units/L [facility] Comment:Testing performed by : [place] [phone] ALT 10 7 - 55 Units/L [facility] Comment:Testing performed by : [address] [address] AST 11 10 - 50 Units/L [facility] Comment:Testing performed by : [address] [address] Blood specimen (specimen) 04/30/2020 10:07 AM PROBATION COUNSELOR 04/30/2020 10:19 AM PROBATION COUNSELOR us Gautam Cope MD LAB BLOOD ORDERABLES Final Resul t [facility] Department [place] [address] * (ABNORMAL) CBC with auto differential (04/30/2020 10:07 AM PROBATION COUNSELOR) WBC 10.0(H) 3.8 - 9.8 K/cumm [facility] Comment:Testing performed by : [facility], [address] [place] [phone] Hgb 12.1(L) 13.8 - 17.2 g/dL [facility] Comment:Testing performed by : [address] [address] Hct 37.0(L) 40.7 - 50.3 % [facility] Comment:Testing performed by : [facility], [address] [place] [phone] Plt 439 140 - 440 K/cumm [facility] Comment:Testing performed by : [address] [address] MPV 6.7(L) 6.8 - 10.4 fL [facility] Comment:Testing performed by : [address] [phone] RBC 4.18(L) 4.50 - 5.70 M/cumm [facility] Comment:Testing performed by : [facility], [address] [place] [phone] MCV 88.4 80.0 - 97.6 fL [facility] Comment:Testing performed by : [address] [phone] MCH 29.0 26.7 - 33.7 pg [facility] Comment:Testing performed by : [address] [address] MCHC 32.8 32.7 - 35.5 g/dL [facility] Comment:Testing performed by : [address] [address] RDW CV 14.0 11.8 - 14.6 % [facility] Comment:Testing performed by : [facility], [address] [place] [phone] NRBC abs 0.01 0.00 - 0.01 K/cumm [facility] Comment:Testing performed by : [facility], [address] [place] [phone] Blood specimen (specimen) 04/30/2020 10:07 AM PROBATION COUNSELOR 04/30/2020 10:19 AM PROBATION COUNSELOR us Gautam Cope MD LAB BLOOD ORDERABLES Final Resul t Performing Organization Address City/[facility]/ZIP Co de Phone Number [facility] [place] [address] * Lactate dehydrogenase (LD) (04/30/2020 10:07 AM PROBATION COUNSELOR) Pathologist [facility] Lactate dehydrogenase (LDH) 170 100 - 250 Units/L [facility] Comment:Testing performed by : [facility], [address] [place] [phone] Blood specimen (specimen) 04/30/2020 10:07 AM PROBATION COUNSELOR 04/30/2020 10:19 AM PROBATION COUNSELOR us Gautam Cope MD LAB BLOOD ORDERABLES Final Resul t Performing Organization Address City/[facility] Co de Phone Number [facility] [place] [address] * (ABNORMAL) Hemoglobin A1c (02/06/2020 8:58 AM CDT) Hgb A1C 9.0(H) 4.0 - 5.6 % [facility] Estimated Average Glucose 212 mg/dL [facility] Comment: The ADA recommends reporting an estimated Average Glucose (eAG) with all Hemoglobin A1c results using the equation derived from a study of 507 normal and diabetic adults. ??Minority populations were underrepresented and children were not included. ?? (Diabetes Care 31:0341-9700, 2008). ??The eAG is not equivalent to a fasting glucose. Blood specimen (specimen) 02/06/2020 8:58 AM CDT 02/06/2020 10:14 AM CDT us Gautam Cope MD LAB BLOOD ORDERABLES Final Resul t [facility] Department [place] [address] documented in this encounter Visit Diagnoses Diagnosis [...] 04/30/2020 documented in this encounter Care Teams Butt Maker Relationship Specialty Start Date End Date Kraig Ching MD [address] [facility] [address] [place] [address] PCP - General 07/10/16 Gautam Cope MD [address] [facility] [address] [place] [address] Medical Oncologist/Door Tender Medical Oncology 08/18/18 Tramaine Roe MD [address] [facility] [address] [place] [address] Referring Physician Urology 08/18/18 Sukhwinder Uribe MD [address] [facility] [address] [place] [address] Consulting Physician Urology 08/18/18 Shay Guillermo MD [address] [facility] [address] [place] [address] Referring Physician Urology 08/18/18 Marsha Landis, RN Registered Nurse 11/17/18 documented as of this encounter
--- OUTSIDE RECORDS SUMMARY | 2024-03-31 11:32 | XMS_ITS | Encounter Summary ---
Author Organization [facility] Address [address] [facility] [address] [place] [address] Care Team Providers Care Applications Architect Name Role Phone Kraig Ching MD Primary Care Provider [phone] Gautam Cope MD Unavailable Tramaine Roe MD Unavailable [phone] Sukhwinder Uribe MD Unavailable [phone] Shay Guillermo MD Unavailable Marsha Landis RN Unavailable Unavailab le Reason for Visit * Reason Onset Date Comments Dr. Ching-medical question 03/27/2020 Encounter Details Date Type Department Care Team (Late st Contact Info) Description 03/27/2020 Telephone [facility] [address] [facility] [address] [place] [address] [address] MA [address] 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 Told him MANNIE Angel would be calling him back. GING CONSULTANT CLINICAL PROFESSOR * Telephone Encounter - Ingrid Baldwin - 03/27/2020 8:56 AM CST Call Back-Resolved Inquiry Caller's Concern: Patient is calling [place] back. Warm transferred to back line. GING CONSULTANT CLINICAL PROFESSOR * Telephone Encounter - Stanley Delacruz MA - 03/27/2020 8:43 AM CST Attempted to call pt at [phone] to get vitals, health history and fill in pt's chart for telemed visit w/ Rajani ESQUIVEL. Pt did not answer. LMOVM advising pt to call office back at [phone] GING CONSULTANT CLINICAL PROFESSOR documented in this encounter Plan of Treatment [...] Chronic Care Management No change(03/23 1:47 PM MANAGING CONSULTANT CLINICAL PROFESSOR) No Ingrid Oden RN Note: Problem: Chronic Pain Goals: 1. Minimize further functional decline 2. Maximize quality of life 3. Control pain Strategies: - Activity/exercise program recommendation - Conservative stepwise pain medicine strategy with multi-disciplinary approach - Recommend healthy lifestyle strategies and compensatory methods as needed documented as of this encounter Visit Diagnoses Not on filedocumented in this encounter Care Teams Applications Architect Relationship Specialty Start Date End Date Kraig Ching MD [address] [facility] [address] [place] [address] PCP - General 07/10/16 Gautam Cope MD [address] [facility] [address] [place] [address] Medical Oncologist/Greens Tier Medical Oncology 08/18/18 Tramaine Roe MD [address] [facility] [address] [place] [address] Referring Physician Urology 08/18/18 Sukhwinder Uribe MD [address] [facility] [address] [place] [address] Consulting Physician Urology 08/18/18 Shay Guillermo MD [address] [facility] [address] [place] [address] Referring Physician Urology 08/18/18 Marsha Landis, RN Registered Nurse 11/17/18 documented as of this encounter
--- OUTSIDE RECORDS SUMMARY | 2024-03-31 11:32 | XMS_ITS | Encounter Summary ---
Author Organization [facility] Address [address] [place] [address] Phone Care Team Providers Care Paralegal Secretary Name Role Phone Kraig Ching MD Primary Care Provider [phone] Gautam Cope MD Unavailable Tramaine Roe MD Unavailable [phone] Sukhwinder Uribe MD Unavailable [phone] Shay Guillermo MD Unavailable [phone] Marsha Landis RN Unavailable Unavailab le Reason for Visit * Reason Comments Injections * Episode Based Medications (Routine) - Authorized Specialty Diagnoses / Procedures Referred By Contac t Referred To Contact Oncology Diagnoses Prostate cancer (HCC) Procedures [facility] LEUPROLIDE ACETATE SUSPNSION Leuprolide Every 3 Months - Prostate Gautam Cope MD [address] [facility] [address] [place] [address] Phone: tel: fax: 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 [facility] Chronic Pain Care Plan Chronic Care Management No change(03/23 1:47 PM SALES MANAGER [place]) No Ingrid Oden, SHEA Note: Problem: Chronic [...] 07/11 documented in this encounter Care Teams Paralegal Secretary Relationship Specialty Start Date End Date Kraig Ching MD [address] [facility] [address] [place] [address] PCP - General 07/10/16 Gautam Cope MD [address] [facility] [address] [place] [address] Medical Oncologist/Brinell Tester Medical Oncology 08/18/18 Tramaine Roe MD [address] [facility] [address] [place] [address] Referring Physician Urology 08/18/18 Sukhwinder Uribe MD [address] [facility] [address] [place] [address] Consulting Physician Urology 08/18/18 Shay Guillermo MD [address] [facility] [address] [place] [address] Referring Physician Urology 08/18/18 Marsha Landis, RN Registered Nurse 11/17/18 documented as of this encounter
--- OUTSIDE RECORDS SUMMARY | 2024-03-31 11:32 | XMS_ITS | Encounter Summary ---
Author Organization [facility] [employer] [facility] Address [address] [place] [address] Phone Care Team Providers Care Television Engineer Name Role Phone Kraig Ching MD Primary Care Provider [phone] Gautam Cope MD Unavailable Tramaine Roe MD Unavailable [phone] Sukhwinder Uribe MD Unavailable [phone] Shay Guillermo MD Unavailable [phone] Marsha Landis RN Unavailable Unavailab le Reason for Visit * Episode Based Medications (Routine) - Authorized Specialty Diagnoses / Procedures Referred By Saleem t Referred To Contact Oncology Diagnoses Prostate cancer (HCC) Procedures OR LEUPROLIDE ACETATE SUSPNSION Leuprolide Every 3 Months - Prostate Gautam Cope MD [address] [facility] [address] [place] [address] Phone: tel: fax: [facility] - Infusion [address] [facility] [address] [place] [address] Referral ID Status Reason Start Date Expiration Date V isits Requested Visits Authorized [id number] Authorized 09/06/2018 07/11/2024 1 50 Encounter Details Date Type Department Care Team (Late st Contact Info) Description 07/23/2020 11:00 AM CDT Office Visit 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 He is followed by the paste up artist and their next appointment is in September. [...] - 07/23/2020 07:12 PM Gautam Cope M.D. blow mold machine operator ISAK/GLORIA/eamon documented in this encounter Plan of [...] monitor diabetes and kidney status, etc. [facility] Chronic Pain Care Plan Chronic Care Management No change(03/23 1:47 PM BRAZER ELECTRONIC) No Ingrid Oden, RN Note: Problem: Chronic [...] CDT 10/15/2020 10:53 AM CDT us Gautam Cpoe MD LAB BLOOD ORDERABLES Final Resul t [facility] One [facility] Department of Laboratories [place], [place] [id number] * (ABNORMAL) Comprehensive metabolic panel (10/15/2020 10:32 AM CDT) Sodium 138 135 - 145 mmol/L [facility] Comment:Testing performed by : [facility], [address] [facility] [address] Potassium, pl 4.2 3.3 - 4.9 mmol/L [facility] Comment:Testing performed by : [facility], [address] [facility] [address] Chloride 102 97 - 110 mmol/L [facility] Comment:Testing performed by : [facility], [facility] [address] CO2 29 22 - 32 mmol/L [facility] Comment:Testing performed by : [facility], [address] [place] [phone] Anion gap 7 2 - 15 mmol/L [facility] Comment:Testing performed by : [facility], [address] [place] [phone] BUN 35(H) 8 - 25 mg/dL [facility] Comment:Testing performed by : [facility], [address] [place] [phone] Creatinine 1.48(H) 0.80 - 1.30 mg/dL [facility] BJ Comment:Testing performed by : [facility], [address] [place] [phone] Glucose 187 70 - 199 mg/dL [facility] Comment: Interpretive Data Fasting glucose [...] Testing performed by: [facility], [address] [place] [phone] Calcium 9.6 8.5 - 10.3 mg/dL [facility] Comment:Testing performed by : [facility], [address] [place] [phone] Bilirubin, total 0.6 0.1 - 1.2 mg/dL [facility] BJ Comment:Testing performed by : [facility], [address] [place] [phone] Protein, pl 7.1 6.5 - 8.5 g/dL [facility] BJ Comment:Testing performed by : [address] [address] Albumin 4.4 3.5 - 5.0 g/dL [facility] BJ Comment:Testing performed by : [facility], [address] [place] [phone] Alk phos 115 40 - 130 Units/L [facility] BJ Comment:Testing performed by : [facility], [address] [place] [phone] ALT 10 7 - 55 Units/L [facility] Comment:Testing performed by : [facility], [address] [place] [phone] AST 10 10 - 50 Units/L [facility] Comment:Testing performed by : [facility], [address] [place] [phone] Blood specimen (specimen) 10/15/2020 10:32 AM CDT 10/15/2020 10:34 AM CDT us Gautam Cope MD LAB BLOOD ORDERABLES Final Resul t [facility] One [facility] Department [place] [address] * (ABNORMAL) CBC with auto differential (10/15/2020 10:32 AM CDT) WBC 11.0(H) 3.8 - 9.8 K/cumm [facility] Comment:Testing performed by : [facility], [address] [place] [phone] Hgb 12.6(L) 13.8 - 17.2 g/dL [facility] Comment:Testing performed by : [facility], [address] [place] [phone] Hct 36.8(L) 40.7 - 50.3 % [facility] Comment:Testing performed by : [facility], [address] [place] [phone] Plt 365 140 - 440 K/cumm [facility] Comment:Testing performed by : [facility], [address] [place] [phone] MPV 7.2 6.8 - 10.4 fL [facility] Comment:Testing performed by : [address] [phone] RBC 4.24(L) 4.50 - 5.70 M/cumm [facility] Comment:Testing performed by : [facility], [address] [place] [phone] MCV 86.9 80.0 - 97.6 fL [facility] Comment:Testing performed by : [facility], [address] [place] [phone] MCH 29.7 26.7 - 33.7 pg [facility] Comment:Testing performed by : [facility], [address] [place] [phone] MCHC 34.1 32.7 - 35.5 g/dL [facility] Comment:Testing performed by : [facility], [address] [place] [phone] RDW CV 14.5 11.8 - 14.6 % [facility] Comment:Testing performed by : [facility], [address] [place] [phone] NRBC abs 0.00 0.00 - 0.01 K/cumm [facility] Comment:Testing performed by : [facility], [address] [place] [phone] Blood specimen (specimen) 10/15/2020 10:32 AM CDT 10/15/2020 10:34 AM CDT us Gautam Cope MD LAB BLOOD ORDERABLES Final Resul t Performing Organization Address City/[facility]/ZIP Co de Phone Number [facility] [place] [address] * Lactate dehydrogenase (LD) (10/15/2020 10:32 AM CDT) Lactate dehydrogenase (LDH) 161 100 - 250 Units/L [facility] Comment:Testing performed by : [facility], [address] [place] [phone] Blood specimen (specimen) 10/15/2020 10:32 AM CDT 10/15/2020 10:34 AM CDT us Gautam Cope MD LAB BLOOD ORDERABLES Final Resul t Performing Organization Address City/[facility]/ZIP Co de Phone Number [facility] Department [place] [address] * (ABNORMAL) Hemoglobin A1c (07/23/2020 10:23 AM CDT) Pathologist [facility] Hgb A1C 7.8(H) 4.0 - 5.6 % [...] LAB BLOOD ORDERABLES Final Resul t [facility] One [facility] Department [place] [address] * (ABNORMAL) Comprehensive metabolic panel (07/23/2020 10:23 AM CDT) [facility] Sodium 138 135 - 145 mmol/L [facility] Comment:Testing performed by : [facility], [address] [place] [phone] Potassium, pl 3.9 3.3 - 4.9 mmol/L [facility] Comment:Testing performed by : [facility], [address] [place] [phone] Chloride 102 97 - 110 mmol/L [facility] Comment:Testing performed by : [facility], [address] [place] [phone] CO2 28 22 - 32 mmol/L [facility] Comment:Testing performed by : [facility], [address] [place] [address] Anion gap 9 2 - 15 mmol/L [facility] Comment:Testing performed by : [facility], [address] [place] [address] BUN 43(H) 8 - 25 mg/dL [facility] Comment:Testing performed by : [facility], [address] [place] [phone] Creatinine 2.59(H) 0.80 - 1.30 mg/dL [facility] BJ Comment:Testing performed by : [facility], [address] [place] [phone] Glucose 99 70 - 199 mg/dL CERNER [...] Testing performed by: [facility], [address] [place], [place] [phone] Calcium 9.1 8.5 - 10.3 mg/dL [facility]J Comment:Testing performed by : [address] [address] Bilirubin, total 0.3 0.1 - 1.2 mg/dL [facility]J Comment:Testing performed by : [address] [address] Protein, pl 6.9 6.5 - 8.5 g/dL [facility] Comment:Testing performed by : [address] [address] Albumin 4.2 3.5 - 5.0 g/dL [facility] Comment:Testing performed by : [address] [address] Alk phos 120 40 - 130 Units/L [facility]J Comment:Testing performed by : [place] [id number] ALT 12 7 - 55 Units/L [facility]J Comment:Testing performed by : [place] [phone] AST 14 10 - 50 Units/L [facility] Comment:Testing performed by : [facility], [address] [facility] [address] Blood specimen (specimen) 07/23/2020 10:23 AM CDT 07/23/2020 10:24 AM CDT us Gautam Cope MD LAB BLOOD ORDERABLES Final Resul t Performing Organization Address City/State/[facility] Co de Phone Number [facility] One [facility] Department [place] [address] documented in this encounter Visit Diagnoses Diagnosis Prostate cancer (HCC)- Primary Malignant neoplasm of prostate documented in this encounter Orders Appointment Requests Count Last Ordered Date Fi rst Ordered Date ONCBCN CLINIC APPOINTMENT REQUEST 2 021 07/23/2020 ONCBCN INJECTION APPOINTMENT REQUEST 1 09/2020 ONCBCN LAB APPOINTMENT 1 10/15/2020 documented in this encounter Care Teams Television Engineer Relationship Specialty Start Date End Date Kraig Ching MD [address] [facility] [address] [place] [address] PCP - General 07/10/16 Gautam Cope MD [address] [facility] [address] [place] [address] Medical Oncologist/Repair Department Supervisor Medical Oncology 08/18/18 Tramaine Roe MD [address] [facility] [address] [place] [address] Referring Physician Urology 08/18/18 Sukhwinder Uribe MD [address] [facility] [address] [place] [address] Consulting Physician Urology 08/18/18 Shay Guillermo MD [address] [facility] [address] [place] [address] Referring Physician Urology 08/18/18 Marsha Landis, RN Registered Nurse 11/17/18 documented as of this encounter
--- OUTSIDE RECORDS SUMMARY | 2024-03-31 11:32 | XMS_ITS | Encounter Summary ---
Author Organization [facility] Address [address] [facility] [address] [place] [address] Care Team Providers Care Camera Prototyping Engineer Name Role Phone Kraig Ching MD Primary Care Provider [phone] Gautam Cope MD Unavailable Tramaine Roe MD Unavailable [phone] Sukhwinder Uribe MD Unavailable [phone] Shay Guillermo MD Unavailable [phone] Marsha Landis RN Unavailable Unavailab le Encounter Details Date Type Department Care Team (Late st Contact Info) Description 04/03/2020 Orders Only [facility] [address] [facility] [address] [place] [phone] Kraig Ching MD [address] [facility] [address] [place], [place] [id number] Social History Tobacco Use Types Packs/Day Years [...] file 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 Minimize further functional decline 2. Maximize quality of life 3. Control pain Strategies: - Activity/exercise program recommendation - Conservative stepwise pain medicine strategy with multi-disciplinary approach - Recommend healthy lifestyle strategies and compensatory methods as needed documented as of this encounter Visit Diagnoses Not on filedocumented in this encounter Care Teams Camera Prototyping Engineer Relationship Specialty Start Date End Date Kraig Ching MD [address] [place] [address] PCP - General 07/10/16 Gautam Cope MD [address] [place] [address] Medical Oncologist/Battery Container Inspector Medical Oncology 08/18/18 Tramaine Roe MD [address] [place] [address] Referring Physician Urology 08/18/18 Sukhwinder Uribe MD [address] [place] [address] Consulting Physician Urology 08/18/18 Shay Guillermo MD [address] [facility] [address] [place] [address] Referring Physician Urology 08/18/18 Marsha Landis, RN Registered Nurse 11/17/18 documented as of this encounter
--- OUTSIDE RECORDS SUMMARY | 2024-03-31 11:32 | XMS_ITS | Encounter Summary ---
Author Organization [facility] Address [address] [place] [address] Phone Care Team Providers Care Animal Care Supervisor Name Role Phone Kraig Ching MD Primary Care Provider [phone] Gautam Cope MD Unavailable Tramaine Roe MD Unavailable [phone] Sukhwinder Uribe MD Unavailable [phone] Shay Guillermo MD Unavailable [phone] Marsha Landis RN Unavailable Unavailab le Reason for Visit * Episode Based Medications (Routine) - Authorized Specialty Diagnoses / Procedures Referred By Saleem narvaez Referred To Contact Oncology Diagnoses Prostate cancer (HCC) Procedures CT LEUPROLIDE ACETATE SUSPNSION Leuprolide Every 3 Months - Prostate Gautam Cope MD [address] [facility] [address] [place] [address] Phone: tel: fax: [facility] [address] [facility] [address] [place] [address] Referral ID Status Reason Start Date Expiration Date V isits Requested Visits Authorized [id number] Authorized 09/06/2018 07/11/2024 1 50 Encounter Details Date Type Department Care Team (Late st Contact Info) Description 04/30/2020 10:45 AM CREDIT CARD CONTROL CLERK Office Visit [facility] Oncology [facility] 7th [place] [address] [place] [phone] Gautam Cope MD [address] [facility] [address] [place] [address] Prostate cancer (CMS/HCC) (Primary Dx) Social History [...] file Legal Sex Male 4:46 PM CREDIT CARD CONTROL CLERK Gender Identity Not on file Sexual Orientation Not on file documented as of this encounter Last Filed Vital Signs Vital Sign Reading Time Taken Comments Blood Pressure 157/70 04/30/2020 10:30 AM CREDIT CARD CONTROL CLERK Pulse 92 04/30/2020 10:30 AM CREDIT CARD CONTROL CLERK Temperature 36.4 ??C (97.5 ??F) 04/30/2020 1 0:26 AM CREDIT CARD CONTROL CLERK Respiratory Rate 18 04/30/2020 10:2 6 AM CREDIT CARD CONTROL CLERK Oxygen Saturation 94% 04/30/2020 10: 30 AM CREDIT CARD CONTROL CLERK Inhaled Oxygen Concentration - - Weight 93.8 kg (206 lb 12.8 oz) 021 10:26 AM CREDIT CARD CONTROL CLERK Height - - Body Mass Index 28.84 03/27/2020 9:17 AM CREDIT CARD CONTROL CLERK documented in this encounter Progress Notes * [...] back. He will follow up with a painting manager. The patient is comfortable with this plan and will call with any issues in between visits. ELECTRONICALLY SIGNED - 05/01/2020 08:58 AM BRANDO Chavez Nurse Practitioner In collaboration with Gautam Cope M.D. My signature confirms I have reviewed the note and agree with the assessment and plan of BRANDO Chavez ELECTRONICALLY SIGNED - 05/01/2020 09:12 AM Gautam Cope M.D. corporate vp advertising & online ISAK/GLORIA/lul IT CARD CONTROL CLERK documented in this encounter Plan of [...] to monitor diabetes and kidney status, etc. [facility] Chronic Pain Care Plan Chronic Care Management No change(03/23 1:47 PM CREDIT CARD CONTROL CLERK) No Ingrid Oden, SHEA Note: Problem: Chronic Pain Goals: 1. Minimize further functional decline 2. Maximize quality of life 3. Control pain Strategies: - Activity/exercise program recommendation - Conservative stepwise pain medicine strategy with multi-disciplinary approach - Recommend healthy lifestyle strategies and compensatory methods as needed documented as of this encounter Results * PSA diagnostic (07/23/2020 10:23 AM CDT) Pathologist [facility] PSA-Total <0.10 <=6.20 ng/mL [facility] Comment: [...] [facility] Co de Phone Number [facility] One [facility] Department of Laboratories [place], [place] [id number] * (ABNORMAL) CBC with auto differential (07/23/2020 10:23 AM CDT) Pathologist [facility] WBC 9.3 3.8 - 9.8 K/cumm [facility] Comment:Testing performed by : [facility], [address] [facility] [address] Hgb 12.0(L) 13.8 - 17.2 g/dL [facility] Comment:Testing performed by : [facility], [address] [facility] [address] Hct 34.7(L) 40.7 - 50.3 % [facility] Comment:Testing performed by : [facility], [address] [place], [place] [id number] Plt 378 140 - 440 K/cumm [facility] Comment:Testing performed by : [facility], [address] [place], [place] [id number] MPV 6.8 6.8 - 10.4 fL [facility] Comment:Testing performed by : [place] [phone] RBC 4.00(L) 4.50 - 5.70 M/cumm [facility] Comment:Testing performed by : [facility], [address] [place], [place] [phone] MCV 86.9 80.0 - 97.6 fL [facility] Comment:Testing performed by : [facility], [address] [place], [place] [id number] MCH 29.9 26.7 - 33.7 pg [facility] Comment:Testing performed by : [place] [phone] MCHC 34.5 32.7 - 35.5 g/dL [facility] Comment:Testing performed by : [facility], [address] [place] [phone] RDW CV 14.5 11.8 - 14.6 % [facility] Comment:Testing performed by : [facility], [address] [place] [phone] NRBC abs 0.00 0.00 - 0.01 K/cumm [facility] Comment:Testing performed by : [facility], [address] [place] [phone] Blood specimen (specimen) 07/23/2020 10:23 AM CDT 07/23/2020 10:24 AM CDT us Gautam Cope MD LAB BLOOD ORDERABLES Final Resul t [facility] One [facility] Department [place] [address] * Lactate dehydrogenase (LD) (07/23/2020 10:23 AM CDT) Pathologist [facility] Lactate dehydrogenase (LDH) 165 100 - 250 Units/L [facility] Comment:Testing performed by : [facility], [address] [place] [phone] Blood specimen (specimen) 07/23/2020 10:23 AM CDT 07/23/2020 10:24 AM CDT Gautam Cope MD LAB BLOOD ORDERABLES Final Resul t Performing Organization Address [facility] de Phone Number [facility] Department [place] [address] * (ABNORMAL) Hemoglobin A1c (04/30/2020 10:17 AM CREDIT CARD CONTROL CLERK) [facility] Hgb A1C 8.3(H) 4.0 - 5.6 % [facility] Estimated Average Glucose 192 mg/dL [facility] Comment: The ADA recommends reporting an estimated Average Glucose (eAG) with all Hemoglobin A1c results using the equation derived from a study of 507 normal and diabetic adults. ??Minority populations were underrepresented and children were not included. ?? (Diabetes Care 31:7800-8205, 2008). ??The eAG is not equivalent to a fasting glucose. Blood specimen (specimen) 04/30/2020 10:17 AM CREDIT CARD CONTROL CLERK 04/30/2020 10:31 AM CREDIT CARD CONTROL CLERK Gautam Cope MD LAB BLOOD ORDERABLES Final Resul t Performing Organization Address [facility] de Phone Number [facility] Department [place] [address] * Lipase (04/30/2020 10:07 AM CREDIT CARD CONTROL CLERK) Pathologist [facility] Lipase 35 10 - 99 Units/L [facility] Comment:Testing performed by : [facility], [address] [place] [phone] Blood specimen (specimen) 04/30/2020 10:07 AM CREDIT CARD CONTROL CLERK 04/30/2020 10:19 AM CREDIT CARD CONTROL CLERK Gautam Cope MD LAB BLOOD ORDERABLES Final Resul t Performing Organization Address City/[facility]/ZIP Co de Phone Number [facility] [place] [address] * Amylase (04/30/2020 10:07 AM CREDIT CARD CONTROL CLERK) Amylase 42 30 - 99 Units/L [facility] Comment:Testing performed by : [facility], [address] [place] [phone] Blood specimen (specimen) 04/30/2020 10:07 AM CREDIT CARD CONTROL CLERK 04/30/2020 10:19 AM CREDIT CARD CONTROL CLERK Gautam Cope MD LAB BLOOD ORDERABLES Final Resul t Performing Organization Address [facility] Co de Phone Number [facility] [place] [address] documented in this encounter Visit Diagnoses Diagnosis Prostate cancer (HCC)- Primary Malignant neoplasm of prostate documented in this encounter Orders Appointment Requests Count Last Ordered Date Fi rst Ordered Date ONCBCN CLINIC APPOINTMENT REQUEST 2 021 04/30/2020 ONCBCN INJECTION APPOINTMENT REQUEST 1 07/11 ONCBCN LAB APPOINTMENT 1 07/23/2020 documented in this encounter Care Teams Animal Care Supervisor Relationship Specialty Start Date End Date Kraig Ching MD [address] [facility] [address] [place] [address] PCP - General 07/10/16 Gautam Cope MD [address] [facility] [address] [place] [address] Medical Oncologist/Manager Store Medical Oncology 08/18/18 Tramaine Roe MD [address] [facility] [address] [place] [address] Referring Physician Urology 08/18/18 Sukhwinder Uribe MD [address] [facility] [address] [place] [address] Consulting Physician Urology 08/18/18 Shay Guillermo MD [address] [facility] [address] [place] [address] Referring Physician Urology 08/18/18 Marsha Landis, RN Registered Nurse 11/17/18 documented as of this encounter
--- OUTSIDE RECORDS SUMMARY | 2024-03-31 11:32 | XMS_ITS | Encounter Summary ---
Author Organization [facility] Address [address] [place] [address] Care Team Providers Care Graphic Design Professor Name Role Phone Kraig Ching MD Primary Care Provider [phone] Gautam Cope MD Unavailable Tramaine Roe MD Unavailable [phone] Sukhwinder Uribe MD Unavailable [phone] Shay Guillermo MD Unavailable [phone] Marsha Landis RN Unavailable Unavailab le Reason for Visit * Reason Onset Date Comments Dr. Ching-medical question 04/03/2020 Encounter Details Date Type Department Care Team (Late st Contact Info) Description 04/03/2020 Telephone [facility] [address] [facility] [address] [place] [address] Kraig Ching MD [address] [facility] [address] [place] [address] Dr. 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 She is deleting the request. NEYMAN PIPE FITTER documented in this encounter Plan of Treatment [...] Chronic Care Management No change(03/23 1:47 PM JOURNEYMAN PIPE FITTER) No Ingrid Oden, SHEA Note: Problem: Chronic Pain Goals: 1. Minimize further functional decline 2. Maximize quality of life 3. Control pain Strategies: - Activity/exercise program recommendation - Conservative stepwise pain medicine strategy with multi-disciplinary approach - Recommend healthy lifestyle strategies and compensatory methods as needed documented as of this encounter Visit Diagnoses Not on filedocumented in this encounter Care Teams Graphic Design Professor Relationship Specialty Start Date End Date Kraig Ching MD [address] [facility] [address] [place] [address] PCP - General 07/10/16 Gautam Cope MD [address] [place] [address] Medical Oncologist/Seismic Prospecting Observer Medical Oncology 08/18/18 Tramaine Roe MD [address] [facility] [address] [place] [address] Referring Physician Urology 08/18/18 Sukhwinder Uribe MD [address] [facility] [address] [place] [address] Consulting Physician Urology 08/18/18 Shay Guillermo MD [address] [facility] [address] [place] [address] Referring Physician Urology 08/18/18 Marsha Landis, RN Registered Nurse 11/17/18 documented as of this encounter
--- OUTSIDE RECORDS SUMMARY | 2024-03-31 11:32 | XMS_ITS | Encounter Summary ---
Author Organization [facility] Address [address] [place] [address] Care Team Providers Care Maintenance Aide Name Role Phone Kraig Ching MD Primary Care Provider [phone] Gautam Cope MD Unavailable Tramaine Roe MD Unavailable [phone] Sukhwinder Uribe MD Unavailable [phone] Shay Guillermo MD Unavailable [phone] Marsha Landis RN Unavailable Unavailab le Encounter Details Date Type Department Care Team (Late st Contact Info) Description 02/01/2020 Telephone [facility] [address] [facility] [address] [place], [place] [id number] Maru Arreola MD PhD [address] [facility] [id number] [place] [address] Social History Tobacco Use Types [...] on file 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 Minimize further functional decline 2. Maximize quality of life 3. Control pain Strategies: - Activity/exercise program recommendation - Conservative stepwise pain medicine strategy with multi-disciplinary approach - Recommend healthy lifestyle strategies and compensatory methods as needed documented as of this encounter Visit Diagnoses Not on filedocumented in this encounter Care Teams Maintenance Aide Relationship Specialty Start Date End Date Kraig Ching MD [address] [place] [address] PCP - General 07/10/16 Gautam Cope MD [address] [place] [address] Medical Oncologist/Material Engineer Medical Oncology 08/18/18 Tramaine Roe MD [address] [place] [address] Referring Physician Urology 08/18/18 Sukhwinder Uribe MD [address] [place] [address] Consulting Physician Urology 08/18/18 Shay Guillermo MD [address] [place] [address] Referring Physician Urology 08/18/18 Marsha Landis, RN Registered Nurse 11/17/18 documented as of this encounter
--- OUTSIDE RECORDS SUMMARY | 2024-03-31 11:33 | XMS_ITS | Encounter Summary ---
Author Organization [facility] Address [address] [facility] [place] [address] Care Team Providers Care Accounting Practice Manager Name Role Phone Kraig Ching MD Primary Care Provider [phone] Gautam Cope MD Unavailable Tramaine Roe MD Unavailable [phone] Sukhwinder Uribe MD Unavailable [phone] Shay Guillermo MD Unavailable [phone] Marsha Landis RN Unavailable Unavailab Ilene Kaur RN Unavailable [phone] Encounter Details Date Type Department Care Team (Late st Contact Info) Description 08/25/2019 Telephone [facility] [address] [facility] [address] [place] [id number] Yu Weaver RMA Social History Tobacco Use [...] file 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 Minimize further functional decline 2. Maximize quality of life 3. Control pain Strategies: - Activity/exercise program recommendation - Conservative stepwise pain medicine strategy with multi-disciplinary approach - Recommend healthy lifestyle strategies and compensatory methods as needed documented as of this encounter Visit Diagnoses Not on filedocumented in this encounter Care Teams Accounting Practice Manager Relationship Specialty Start Date End Date Kraig Ching MD [address] [place] [address] PCP - General 07/10/16 Gautam Cope MD [address] [place] [address] Medical Oncologist/Technical Assistant Medical Oncology 08/18/18 Tramaine Roe MD [address] [place] [address] Referring Physician Urology 08/18/18 Sukhwinder Uribe MD [address] [place] [address] Consulting Physician Urology 08/18/18 Shay Guillermo MD [address] [place] [address] Referring Physician Urology 08/18/18 Marsha Landis, RN Registered Nurse 11/17/18 Ilene Fragoso, SHEA [address] [facility] [address] [place] [address] Twisting Operator 12/23/18 11/01/19 documented as of this encounter
--- OUTSIDE RECORDS SUMMARY | 2024-03-31 11:33 | XMS_ITS | Encounter Summary ---
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 [facility] Chronic Pain Care Plan Chronic Care Management No change(03/23 1:47 PM WINDOWS 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) No Ingrid Oden, SHEA Note: Problem: Chronic Pain Goals: 1. Minimize further functional decline 2. Maximize quality of life 3. Control pain Strategies: - Activity/exercise program recommendation - Conservative stepwise pain medicine strategy with multi-disciplinary approach - Recommend healthy lifestyle strategies and compensatory methods as needed documented as of this encounter Visit Diagnoses Not on filedocumented in this encounter Care Teams Garage Supervisor Relationship Specialty Start Date End Date Kraig Ching MD [address] [place] [address] PCP - General 07/10/16 Gautam Cope MD [address] [place] [address] Medical Oncologist/Hogshead Mat Inspector Medical Oncology 08/18/18 Tramaine Roe MD [address] [place] [address] Referring Physician Urology 08/18/18 Sukhwinder Uribe MD [address] [place] [address] Consulting Physician Urology 08/18/18 Shay Guillermo MD [address] [place] [address] Referring Physician Urology 08/18/18 Marsha Landis, RN Registered Nurse 11/17/18 Ilene Fragoso, RN [address] [facility] [address] [place] [address] Busboy 12/23/18 11/01/19 documented as of this encounter
--- OUTSIDE RECORDS SUMMARY | 2024-03-31 11:33 | XMS_ITS | Encounter Summary ---
Author Organization [facility] Address [address] [place] [address] Phone Care Team Providers Care Electronic Assembler Group Leader Name Role Phone Kraig Ching MD Primary Care Provider [phone] Gautam Cope MD Unavailable Tramaine Roe MD Unavailable [phone] Sukhwinder Uribe MD Unavailable Shay Guillermo MD Unavailable [phone] Marsha Landis RN Unavailable Unavailab Ilene Kaur RN Unavailable [phone] Encounter Details Date Type Department Care Team (Late st Contact Info) Description 08/25/2019 Telephone 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 Phone appt * Telephone Encounter - [...] are full right now. He read my [employer] msgs but has not responded. Let me [...] diabetes and kidney status, etc. [facility] Chronic Pain Care Plan Chronic Care Management No change(03/23 1:47 PM AIR LIFT OPERATOR) No Ingrid Oden, SHEA Note: Problem: Chronic Pain Goals: 1. Minimize further functional decline 2. Maximize quality of life 3. Control pain Strategies: - Activity/exercise program recommendation - Conservative stepwise pain medicine strategy with multi-disciplinary approach - Recommend healthy lifestyle strategies and compensatory methods as needed documented as of this encounter Visit Diagnoses Not on filedocumented in this encounter Care Teams Electronic Assembler Group Leader Relationship Specialty Start Date End Date Kraig Ching MD [address] [facility] [address] [place] [address] PCP - General 07/10/16 Gautam Cope MD [address] [facility] [address] [place] [address] Medical Oncologist/Sucker Machine Operator Medical Oncology 08/18/18 Tramaine Roe MD [address] [facility] [address] [place] [address] Referring Physician Urology 08/18/18 Sukhwinder Uribe MD [address] [facility] [address] [place] [address] Consulting Physician Urology 08/18/18 Shay Guillermo MD [address] [facility] [address] [place] [address] Referring Physician Urology 08/18/18 Marsha Landis, RN Registered Nurse 11/17/18 Ilene Fragoso, RN [address] [place] [address] [address] [place] [address] Dock Superintendent 12/23/18 11/01/19 documented as of this encounter
--- OUTSIDE RECORDS SUMMARY | 2024-03-31 11:33 | XMS_ITS | Encounter Summary ---
Author Organization [facility] Address [address] [place] [address] Phone Care Team Providers Care Field Assistant Name Role Phone Kraig Ching MD Primary Care Provider [phone] Gautam Cope MD Unavailable Tramaine Roe MD Unavailable [phone] Sukhwinder Uribe MD Unavailable [phone] Shay Guillermo MD Unavailable [phone] Marsha Landis RN Unavailable Unavailab Ilene Kaur RN Unavailable [phone] Reason for Visit * Episode Based Medications (Routine) - Authorized Specialty Diagnoses / Procedures Referred By Contac t Referred To Contact Oncology Diagnoses Prostate cancer (HCC) Procedures AR LEUPROLIDE ACETATE SUSPNSION Leuprolide Every 3 Months - Prostate Gautam Cope MD [address] [facility] [address] [place] [address] Phone: tel: fax: [facility] [address] [facility] [address] [place] [address] Referral ID Status Reason Start Date Expiration Date V isits Requested Visits Authorized [id number] Authorized 09/06/2018 07/11/2024 1 50 Encounter Details Date Type Department Care Team (Late st Contact Info) Description 03/07/2019 9:00 AM TRIMMING CUTTER MACHINE Lab [facility] Oncology [address] [facility] 7th [address] [place] [address] Prostate cancer ([facility]) Social History Tobacco [...] on file Legal Sex Male 4:46 PM TRIMMING CUTTER MACHINE Gender Identity Not on file [...] Chronic Care Management No change(03/23 1:47 PM TRIMMING CUTTER MACHINE) No Ingrid Oden, RN Note: Problem: Chronic [...] DIFFERENTIAL AUTO Routine 03/07/2019 8:4 8 AM TRIMMING CUTTER MACHINE Prostate cancer (CMS/HCC) CBC WITH AUTO DIFFERENTIAL Routine 03/07/2019 8:48 AM TRIMMING CUTTER MACHINE Prostate cancer (CMS/HCC) PRO B-TYPE NATRIURETIC PEPTIDE Routine 03/07/2019 8:48 AM TRIMMING CUTTER MACHINE Prostate cancer (CMS/HCC) PSA DIAGNOSTIC Routine 03/07/2019 8:48 AM TRIMMING CUTTER MACHINE Prostate cancer (CMS/HCC) LACTATE DEHYDROGENASE Routine 03/07/2019 8:48 AM TRIMMING CUTTER MACHINE Prostate cancer (CMS/HCC) HEMOGLOBIN A1C Routine 03/07/2019 8:48 AM TRIMMING CUTTER MACHINE Prostate cancer (CMS/HCC) COMPREHENSIVE METABOLIC PANEL Routine 03/07/2019 8:48 AM TRIMMING CUTTER MACHINE Prostate cancer (CMS/HCC) documented in this encounter Results * Differential, auto (03/07/2019 8:48 AM TRIMMING CUTTER MACHINE) Neutrophil abs 5.3 1.8 - 6.6 K/cumm [facility] Comment:Testing performed by : [facility], [address] [place] [phone] Lymphocyte abs 1.7 1.2 - 3.3 K/cumm [facility] Comment:Testing performed by : [facility], [address] [place] [phone] Monocyte abs 0.8 0.2 - 1.2 K/cumm [facility] Comment:Testing performed by : [facility], [address] [place] [phone] Eosinophil abs 0.1 0.0 - 0.5 K/cumm [facility] Comment:Testing performed by : [facility], [address] [place] [phone] Basophil abs 0.0 0.0 - 0.2 K/cumm [facility] Comment:Testing performed by : [facility], [address] [place] [phone] Neutrophil pct 66.6 % [facility] Comment: Interpretive Data Percent cell count reference ranges are not reported, since discordance with absolute values may lead to misinterpretation of CBC data. Current Interpretive Data was last revised on 2017. Testing performed by: [facility], [address] [place] [phone] Lymphocyte pct 20.9 % [facility] Comment: Interpretive Data Percent cell count reference ranges are not reported, since discordance with absolute values may lead to misinterpretation of CBC data. Current Interpretive Data was last revised on 2017. Testing performed by: [facility], [address] [place] [phone] Monocyte pct 10.3 % [facility] Comment:Testing performed by : [facility], [address] [place] [phone] Eosinophil pct 1.7 % [facility] Comment:Testing performed by : [address] [phone] Basophil pct 0.5 % [facility] Comment:Testing performed by : [facility], [address] [place] [phone] Blood specimen (specimen) 03/07/2019 8:48 AM TRIMMING CUTTER MACHINE 03/07/2019 8:49 AM TRIMMING CUTTER MACHINE us Gautam Cope MD LAB BLOOD ORDERABLES Final Resul t [facility] [place] [address] * (ABNORMAL) CBC with auto differential (03/07/2019 8:48 AM TRIMMING CUTTER MACHINE) WBC 7.9 3.8 - 9.8 K/cumm [facility] Comment:Testing performed by : [facility], [address] [place] [address] Hgb 12.1(L) 13.8 - 17.2 g/dL [facility] Comment:Testing performed by : [place] [address] Hct 36.7(L) 40.7 - 50.3 % [facility] Comment:Testing performed by : [facility], [address] [place] [address] Plt 358 140 - 440 K/cumm [facility] Comment:Testing performed by : [place] [address] MPV 7.6 6.8 - 10.4 fL [facility] Comment:Testing performed by : [place] [address] RBC 3.99(L) 4.50 - 5.70 M/cumm [facility] Comment:Testing performed by : [place] [address] MCV 92.0 80.0 - 97.6 fL [facility] Comment:Testing performed by : [place] [address] MCH 30.4 26.7 - 33.7 pg [facility] Comment:Testing performed by : [place] [address] MCHC 33.1 32.7 - 35.5 g/dL [facility] Comment:Testing performed by : [place] [address] RDW CV 13.8 11.8 - 14.6 % [facility] Comment:Testing performed by : [place] [address] NRBC abs 0.00 0.00 - 0.01 K/cumm [facility] Comment:Testing performed by : [place] [phone] Blood specimen (specimen) 03/07/2019 8:48 AM TRIMMING CUTTER MACHINE 03/07/2019 8:49 AM TRIMMING CUTTER MACHINE Gautam Cope MD LAB BLOOD ORDERABLES Final Resul t Performing Organization Address [facility] de Phone Number [facility] Department [place] [address] * (ABNORMAL) Hemoglobin A1c (03/07/2019 8:48 AM TRIMMING CUTTER MACHINE) Hgb A1C 10.1(H) 4.0 - 5.6 % [facility] Estimated Average Glucose 243 mg/dL [facility] Comment: The ADA recommends reporting an estimated Average Glucose (eAG) with all Hemoglobin A1c results using the equation derived from a study of 507 normal and diabetic adults. ??Minority populations were underrepresented and children were not included. ?? (Diabetes Care 31:1241-1729, 2008). ??The eAG is not equivalent to a fasting glucose. Blood specimen (specimen) 03/07/2019 8:48 AM TRIMMING CUTTER MACHINE 03/07/2019 8:55 AM TRIMMING CUTTER MACHINE Gautam Cope MD LAB BLOOD ORDERABLES Final Resul t Performing Organization Address [facility] de Phone Number [facility] [place] [address] * Pro B-type natriuretic peptide (03/07/2019 8:48 AM TRIMMING CUTTER MACHINE) NT-proBNP 155 <=450 pg/mL [facility] Comment: Interpretive Comments: A. Dyspnea in Acute [...] 2017. Blood specimen (specimen) 03/07/2019 8:48 AM TRIMMING CUTTER MACHINE 03/07/2019 8:55 AM TRIMMING CUTTER MACHINE us Gautam Cope MD LAB BLOOD ORDERABLES Final Resul t [facility] [place] [address] * Lactate dehydrogenase (LD) (03/07/2019 8:48 AM TRIMMING CUTTER MACHINE) Lactate dehydrogenase (LDH) 191 100 - 250 Units/L [facility] Blood specimen (specimen) 03/07/2019 8:48 AM TRIMMING CUTTER MACHINE 03/07/2019 8:55 AM TRIMMING CUTTER MACHINE us Gautam Cope MD LAB BLOOD ORDERABLES Final Resul t [facility] [place] [address] * (ABNORMAL) Comprehensive metabolic panel (03/07/2019 8:48 AM TRIMMING CUTTER MACHINE) Sodium 138 135 - 145 mmol/L [facility] Potassium, pl 4.2 3.3 - 4.9 mmol/L [facility] Chloride 102 97 - 110 mmol/L [facility] CO2 28 22 - 32 mmol/L [facility] Anion gap 8 2 - 15 mmol/L [facility] BUN 35(H) 8 - 25 mg/dL [facility] Creatinine 1.75(H) 0.80 - 1.30 mg/dL [facility] Glucose 229(H) 70 - 199 mg/dL [facility] Comment: Interpretive Data Fasting glucose >/= [...] Calcium 9.5 8.5 - 10.3 mg/dL [facility] Bilirubin, total 0.3 0.1 - 1.2 mg/dL [facility] Protein, pl 6.7 6.5 - 8.5 g/dL [facility] Albumin 4.1 3.5 - 5.0 g/dL [facility] Alk phos 94 40 - 130 Units/L [facility] ALT 23 7 - 55 Units/L [facility] AST 21 10 - 50 Units/L [facility] Blood specimen (specimen) 03/07/2019 8:48 AM TRIMMING CUTTER MACHINE 03/07/2019 8:55 AM TRIMMING CUTTER MACHINE us Gautam Cope MD LAB BLOOD ORDERABLES Final Resul t Performing Organization Address [facility] de Phone Number [facility] [place] [address] * PSA diagnostic (03/07/2019 8:48 AM TRIMMING CUTTER MACHINE) PSA-Total 0.20 <=6.20 ng/mL [facility] Comment: Interpretive Data ?AGE ? SEX ?REFERENCE INTERVAL 0 minutes-150 years ?Female ?None 0 minutes-49 years ? Male ?None ? 50-59 years ? Male ?0-3.90 ? 60-69 years ? Male ?0-5.40 ? 70-79 years ? Male ?0-6.20 ? 80-150 years ?Male ?0-6.20 Current interpretive data last revised 2017. Blood specimen (specimen) 03/07/2019 8:48 AM TRIMMING CUTTER MACHINE 03/07/2019 8:55 AM TRIMMING CUTTER MACHINE us Gautam Cope MD LAB BLOOD ORDERABLES Final Resul t Performing Organization Address [facility] de Phone Number [facility] [place] [address] documented in this encounter Visit Diagnoses Diagnosis Prostate cancer (HCC) Malignant neoplasm of prostate documented in this encounter Orders Appointment Requests Count Last Ordered Date Fi rst Ordered Date ONCBCN LAB APPOINTMENT 1 03/07/2019 documented in this encounter Care Teams Field Assistant Relationship Specialty Start Date End Date Kraig Ching MD [address] [place] [address] PCP - General 07/10/16 Gautam Cope MD [address] [place] [address] Medical Oncologist/Joy Operator Medical Oncology 08/18/18 Tramaine Roe MD [address] [place] [address] Referring Physician Urology 08/18/18 Sukhwinder Uribe MD [address] [facility] [address] [place] [address] Consulting Physician Urology 08/18/18 Shay Guillermo MD [address] [facility] [address] [place] [address] Referring Physician Urology 08/18/18 Marsha Landis, RN Registered Nurse 11/17/18 Ilene Fragoso, SHEA [address] [facility] [address] [place] [address] Cancer Center Director 12/23/18 11/01/19 documented as of this encounter
--- OUTSIDE RECORDS SUMMARY | 2024-03-31 11:33 | XMS_ITS | Encounter Summary ---
Author Organization [facility] Healthcare Address [address] [place] [address] Care Team Providers Care Ux Specialist Name Role Phone Kraig Ching MD Primary Care Provider [phone] Gautam Cope MD Unavailable Tramaine Roe MD Unavailable [phone] Sukhwinder Uribe MD Unavailable [phone] Shay Guillermo MD Unavailable [phone] Marsha Landis RN Unavailable Unavailab Ilene Kaur RN Unavailable [phone] Encounter Details Date Type Department Care Team (Late st Contact Info) Description 05/22/2019 5:15 PM TESTING TECH Lab [address] [address] Social History Tobacco Use Types [...] on file Legal Sex Male 4:46 PM TESTING TECH Gender Identity Not on file Sexual [...] Chronic Care Management No change(03/23 1:47 PM TESTING TECH) No Ingrid Oden, RN Note: Problem: Chronic Pain Goals: 1. Minimize further functional decline 2. Maximize quality of life 3. Control pain Strategies: - Activity/exercise program recommendation - Conservative stepwise pain medicine strategy with multi-disciplinary approach - Recommend healthy lifestyle strategies and compensatory methods as needed documented as of this encounter Visit Diagnoses Not on filedocumented in this encounter Care Teams Ux Specialist Relationship Specialty Start Date End Date Kraig Ching MD [address] [facility] [address] [place] [address] PCP - General 07/10/16 Gautam Cope MD [address] [facility] [address] [place] [address] Medical Oncologist/Pocket Cutter Medical Oncology 08/18/18 Tramaine Roe MD [address] [facility] [address] [place] [address] Referring Physician Urology 08/18/18 Sukhwinder Uribe MD [address] [facility] [address] [place] [address] Consulting Physician Urology 08/18/18 Shay Guillermo MD [address] [facility] [address] [place] [address] Referring Physician Urology 08/18/18 Marsha Landis, RN Registered Nurse 11/17/18 Ilene Fragoso, RN [address] [facility] [address] [place] [address] Nsh Teacher 12/23/18 11/01/19 documented as of this encounter
--- OUTSIDE RECORDS SUMMARY | 2024-03-31 11:33 | XMS_ITS | Encounter Summary ---
Author Organization [facility] Address [address] [place] [address] Phone Care Team Providers Care Fire Extinguisher Inspector Name Role Phone Kraig Ching MD Primary Care Provider [phone] Gautam Cope MD Unavailable Tramaine Roe MD Unavailable [phone] Sukhwinder Uribe MD Unavailable [phone] Shay Guillermo MD Unavailable [phone] Marsha Landis RN Unavailable Unavailab Ilene Kaur RN Unavailable [phone] Encounter Details Date Type Department Care Team (Late st Contact Info) Description 03/03/2019 Orders Only [facility] Oncology [address] [facility] Advanced Medicine 7th [place] [address] [place] [address] Muna Saleem RN Prostate cancer (CMS/HCC) (Primary [...] on file Legal Sex Male 4:46 PM SUPPRESSION CREW LEADER Gender Identity Not on file Sexual [...] Chronic Care Management No change(03/23 1:47 PM SUPPRESSION CREW LEADER) No Ingrid Oden, SHEA Note: Problem: Chronic [...] documented in this encounter Care Teams Fire Extinguisher Inspector Relationship Specialty Start Date End Date Kraig Ching MD [address] [facility] [address] [place] [address] PCP - General 07/10/16 Gautam Cope MD [address] [facility] [address] [place] [address] Medical Oncologist/Justice Court Judge Medical Oncology 08/18/18 Tramaine Roe MD [address] [facility] [address] [place] [address] Referring Physician Urology 08/18/18 Sukhwinder Uribe MD [address] [facility] [address] [place] [address] Consulting Physician Urology 08/18/18 Shay Guillermo MD [address] [facility] [address] [place] [address] Referring Physician Urology 08/18/18 Marsha Landis, RN Registered Nurse 11/17/18 Ilene Fragoso RN [address] [facility] [address] [place] [address] Assembly Line Leader 12/23/18 11/01/19 documented as of this encounter
--- OUTSIDE RECORDS SUMMARY | 2024-03-31 11:33 | XMS_ITS | Encounter Summary ---
Author Organization [facility] Address [address] [place] [address] Phone Care Team Providers Care Hardboard Coating Machine Operator Name Role Phone Kraig Ching MD Primary Care Provider [phone] Gautam Cope MD Unavailable Tramaine Roe MD Unavailable [phone] Sukhwinder Uribe MD Unavailable [phone] Shay Guillermo MD Unavailable [phone] Marsha Landis RN Unavailable Unavailab Ilene Kaur RN Unavailable [phone] Reason for Visit * Episode Based Medications (Routine) - Authorized Specialty Diagnoses / Procedures Referred By Contac t Referred To Contact Oncology Diagnoses Prostate cancer (HCC) Procedures MD LEUPROLIDE ACETATE SUSPNSION Leuprolide Every 3 Months - Prostate Gautam Cope MD [address] [facility] [address] [place] [address] Phone: tel: fax: [facility] - Infusion [address] [facility] [address] [place] [address] Referral ID Status Reason Start Date Expiration Date V isits Requested Visits Authorized [id number] Authorized 09/06/2018 07/11/2024 1 50 Encounter Details Date Type Department Care Team (Late st Contact Info) Description 05/30/2019 11:30 AM SURVEYING CREW RODMAN Office Visit [facility] Oncology [address] [facility] 7th [place] [address] [place] [address] Gautam Cope MD [address] [facility] [address] [place], [place] [id number] Prostate cancer (CMS/HCC) (Primary Dx) Social History [...] on file Legal Sex Male 4:46 PM SURVEYING CREW RODMAN Gender Identity Not on file Sexual Orientation Not on file documented as of this encounter Last Filed Vital Signs Vital Sign Reading Time Taken Comments Blood Pressure 149/66 05/30/2019 11:33 AM SURVEYING CREW RODMAN Pulse 70 05/30/2019 11:33 AM SURVEYING CREW RODMAN Temperature 36.9 ??C (98.4 ??F) 05/30/2019 1 1:33 AM SURVEYING CREW RODMAN Respiratory Rate 18 05/30/2019 11:3 3 AM SURVEYING CREW RODMAN Oxygen Saturation 94% 05/30/2019 11: 33 AM SURVEYING CREW RODMAN Inhaled Oxygen Concentration - - Weight 100.6 kg (221 lb 12.8 oz) 2019 11:33 AM SURVEYING CREW RODMAN Height - - Body Mass Index 31.38 05/22/2019 11:51 AM SURVEYING CREW RODMAN documented in this encounter Progress Notes * Gautam Cope MD - 05/30/2019 12:00 AM CST PATIENT NAME: DAVID DREW : 1940 [place]: 05/30/2019 Mr. Drew is a 78-year-old with metastatic prostate cancer. He was diagnosed in April 1999, when he presented with a PSA of 5.5 and underwent a prostate biopsy showing Henderson 3+4 disease. He was treated with a radical prostatectomy in June 1999, performed by Dr. Guillermo, showing Henderson 4+3 disease with extracapsular extension and positive [...] - 05/30/2019 07:09 PM Gautam Cope M.D. television news reporter Shelia EYING CREW RODMAN documented in this encounter Plan of Treatment [...] Chronic Care Management No change(03/23 1:47 PM SURVEYING CREW RODMAN) No Ingrid Oden RN Note: Problem: Chronic [...] PERDOMO [facility] Department [place] [address] * (ABNORMAL) Comprehensive metabolic panel (08/22/2019 10:08 AM CDT) Sodium 139 135 - 145 mmol/L [facility] PER[facility]O Comment:Testing performed by : [facility], [address] [place] [phone] Potassium, pl 4.7 3.3 - 4.9 mmol/L CERNER BJ Comment:Testing performed by : [facility], [address] [place] [phone] Chloride 99 97 - 110 mmol/L CERNER BJ Comment:Testing performed by : [facility], [address] [place] [phone] CO2 30 22 - 32 mmol/L CERNER BJ Comment:Testing performed by : [facility], [address] [place] [phone] Anion gap 10 2 - 15 mmol/L CERN[facility] BJ Comment:Testing performed by : [facility], [address] [place] [phone] BUN 38(H) 8 - 25 mg/dL CERNER BJ Comment:Testing performed by : [facility], [address] [place] [phone] Creatinine 1.81(H) 0.80 - 1.30 mg/dL CERNER BJ Comment:Testing performed by : [facility], [address] [place] [phone] Glucose 229(H) 70 - 199 mg/dL CERNER [...] was last revised 2017. Testing performed by: [facility], [address] [place] [phone] Calcium 9.3 8.5 - 10.3 mg/dL CERNER BJ Comment:Testing performed by : [facility], [address] [place] [phone] Bilirubin, total 0.4 0.1 - 1.2 mg/dL CERNER BJ Comment:Testing performed by : [facility], [address] [place] [phone] Protein, pl 6.8 6.5 - 8.5 g/dL [facility] PER[facility]O Comment:Testing performed by : [facility], [address] [place] [phone] Albumin 4.2 3.5 - 5.0 g/dL [facility] PER[facility]O Comment:Testing performed by : [facility], [address] [place] [phone] Alk phos 111 40 - 130 Units/L [facility] PERDMOO Comment:Testing performed by : [facility], [address] [place] [phone] ALT 17 7 - 55 Units/L [facility] Comment:Testing performed by : [facility], [address] [place] [phone] AST 13 10 - 50 Units/L [facility] PER[facility]O Comment:Testing performed by : [address] [phone] Blood specimen (specimen) 08/22/2019 10:08 AM CDT 08/22/2019 10:08 AM CDT us Gautam Cope MD LAB BLOOD ORDERABLES Final Resul t [facility] Department [place] [address] * (ABNORMAL) CBC with auto differential (08/22/2019 10:08 AM CDT) WBC 11.3(H) 3.8 - 9.8 K/cumm [facility] Comment:Testing performed by : [facility], [address] [place] [phone] Hgb 12.3(L) 13.8 - 17.2 g/dL [facility]O Comment:Testing performed by : [address] [phone] Hct 37.1(L) 40.7 - 50.3 % [facility]O Comment:Testing performed by : [facility], [address] [place] [phone] Plt 398 140 - 440 K/cumm [facility]O Comment:Testing performed by : [facility], [address] [place], [place] [phone] MPV 7.2 6.8 - 10.[address] [facility] Comment:Testing performed by : [facility], [address] [place] [address] RBC 4.16(L) 4.50 - 5.70 M/cumm [facility]O Comment:Testing performed by : [facility], [address] [place] [address] MCV 89.1 80.0 - 97.6 fL [facility] Comment:Testing performed by : [facility], [address] [place] [address] MCH 29.6 26.7 - 33.[address] [facility] Comment:Testing performed by : [facility], [address] [place] [address] MCHC 33.2 32.7 - 35.5 g/dL [facility] Comment:Testing performed by : [facility], [address] [place], [place] [phone] RDW CV 14.0 11.8 - 14.6 % [facility] Comment:Testing performed by : [facility], [address] [place], [place] [phone] NRBC abs 0.00 0.00 - 0.01 K/cumm [facility]LINE [facility] Comment:Testing performed by : [place] [address] Blood specimen (specimen) 08/22/2019 10:08 AM CDT 08/22/2019 10:08 AM CDT us Gautam Cope MD LAB BLOOD ORDERABLES Final Resul t [facility] [place] [address] * Lactate dehydrogenase (LD) (08/22/2019 10:08 AM CDT) Lactate dehydrogenase (LDH) 163 100 - 250 Units/L [facility] Comment:Testing performed by : [facility], [address] [facility] [phone] Blood specimen (specimen) 08/22/2019 10:08 AM CDT 08/22/2019 10:08 AM CDT Gautam Cope MD LAB BLOOD ORDERABLES Final Resul t Performing Organization Address [facility] de Phone Number [facility] [place] [address] * (ABNORMAL) Hemoglobin A1c (05/30/2019 10:55 AM SURVEYING CREW RODMAN) Hgb A1C 11.4(H) 4.0 - 5.6 % [facility] Estimated Average Glucose 280 mg/dL [facility] Comment: The ADA recommends reporting an estimated Average Glucose (eAG) with all Hemoglobin A1c results using the equation derived from a study of 507 normal and diabetic adults. ??Minority populations were underrepresented and children were not included. ?? (Diabetes Care 31:8830-8994, 2008). ??The eAG is not equivalent to a fasting glucose. Blood specimen (specimen) 05/30/2019 10:55 AM SURVEYING CREW RODMAN 05/30/2019 11:03 AM SURVEYING CREW RODMAN Gautam Cope MD LAB BLOOD ORDERABLES Final Resul t Performing Organization Address [facility] de Phone Number [facility] [place] [address] documented in this encounter Visit Diagnoses Diagnosis Prostate cancer (HCC)- Primary Malignant neoplasm of prostate documented in this encounter Orders Appointment Requests Count Last Ordered Date Fi rst Ordered Date ONCBCN CLINIC APPOINTMENT REQUEST 2 020 05/30/2019 ONCBCN INJECTION APPOINTMENT REQUEST 1 08/10 ONCBCN LAB APPOINTMENT 1 08/22/2019 documented in this encounter Care Teams Hardboard Coating Machine Operator Relationship Specialty [place] [address] [place] [address] [address] [place] [address] PCP - General 07/10/16 Gautam Cope MD [address] [facility] [address] [place] [address] Medical Oncologist/Confidential Investigator Medical Oncology 08/18/18 Tramaine Roe MD [address] [facility] [address] [place] [address] Referring Physician Urology 08/18/18 Sukhwinder Uribe MD [address] [facility] [address] [place] [address] Consulting Physician Urology 08/18/18 Shay Guillermo MD [address] [facility] [address] [place] [address] Referring Physician Urology 08/18/18 Marsha Landis, RN Registered Nurse 11/17/18 Ilene Fragoso, RN [address] [place] [address] [address] [place] [address] Store Administrative Assistant 12/23/18 11/01/19 documented as of this encounter
--- OUTSIDE RECORDS SUMMARY | 2024-03-31 11:33 | XMS_ITS | Encounter Summary ---
Author Organization [facility] Address [address] [place] [address] Phone Care Team Providers Care Golf Course Superintendent Name Role Phone Kraig Ching MD Primary Care Provider [phone] Gautam Cope MD Unavailable Tramaine Roe MD Unavailable [phone] Sukhwinder Uribe MD Unavailable [phone] Shay Guillermo MD Unavailable [phone] Marsha Landis RN Unavailable Unavailab Ilene Kaur RN Unavailable [phone] Encounter Details Date Type Department Care Team (Latest Contact Info) Description 09/06/2019 8:30 AM CDT Telemedicine [facility] Nephrology [facility] Advanced Medicine 5th [place] [address] [place] [address] CRD (chronic renal disease), stage [...] on file 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 Prostate Cancer in 1999, [id number], status post radical prostatectomy with subsequent external [...] 145 mmol/L Final Comment: Testing performed by: [facility], [address] [place] [phone] 05/30/2019 137 135 - 145 mmol/L Final 05/22/2019 140 135 - 145 mmol/L Final Potassium, pl Date Value Ref Range Status 08/22/2019 4.7 3.3 - 4.9 mmol/L Final Comment: Testing performed by: [facility], [address] [place] [phone] 05/30/2019 4.6 3.3 - 4.9 mmol/L Final 05/22/2019 4.2 3.3 - 4.9 mmol/L Final CO2 Date Value Ref Range Status 08/22/2019 30 22 - 32 mmol/L Final Comment: Testing performed by: [facility], [address] [place] [phone] 05/30/2019 29 22 - 32 mmol/L Final 05/22/2019 29 22 - 32 mmol/L Final BUN Date Value Ref Range Status 08/22/2019 38 (H) 8 - 25 mg/dL Final Comment: Testing performed by: [facility], [address] [place] [phone] 05/30/2019 29 (H) 8 - 25 mg/dL Final 05/22/2019 32 (H) 8 - 25 mg/dL Final Creatinine Date Value Ref Range Status 08/22/2019 1.81 (H) 0.80 - 1.30 mg/dL Final Comment: Testing performed by: [facility], [address] [place] [phone] 05/30/2019 1.48 (H) 0.80 - 1.30 mg/dL Final 05/22/2019 1.58 (H) 0.80 - 1.30 mg/dL Final Albumin Date Value Ref Range Status 08/22/2019 4.2 3.5 - 5.0 g/dL Final Comment: Testing performed by: [facility], [address] [place] [phone] 05/30/2019 4.1 3.5 - 5.0 g/dL Final 03/07/2019 4.1 3.5 - 5.0 g/dL Final Calcium Date Value Ref Range Status 08/22/2019 9.3 8.5 - 10.3 mg/dL Final Comment: Testing performed by: [facility], [address] [place] [phone] 05/30/2019 9.9 8.5 - 10.3 mg/dL Final [...] 17.2 g/dL Final Comment: Testing performed by: [facility], [address] [place] [phone] 05/30/2019 12.1 (L) 13.8 - 17.2 g/dL Final Comment: Testing performed by: [facility], [address] [place] [phone] 03/07/2019 12.1 (L) 13.8 - 17.2 g/dL Final Comment: Testing performed by: [facility], [address] [place] [phone] ASSESSMENT AND PLAN: 1. Chronic kidney disease, [...] with labs. Nichole Morales MD Nephrology fellow [facility] Nephrology Cosigned by Lin Guerrero MD at 09/15/2019 2:24 PM CDT Associated attestation - Lin Guerrero MD - 09/15/2019 2:24 PM CDT This was a telemedicine visit with David Drew alone which took place via Telephone.During the visit, I was located at my academic office at [facility] and the patient was located home in the [facility]. I was present for the entire service [...] monitor diabetes and kidney status, etc. [facility] Chronic Pain Care Plan Chronic Care Management No change(03/23 1:47 PM ELECTRICIAN MASTER) No Ingrid Oden, SHEA Note: Problem: Chronic [...] documented as of this encounter Care Teams Golf Course Superintendent Relationship Specialty Start Date End Date Kraig Ching MD [address] [facility] [address] [place] [address] PCP - General 07/10/16 Gautam Cope MD [address] [facility] [address] [place] [address] Medical Oncologist/Tow Motor Driver Medical Oncology 08/18/18 Tramaine Roe MD [address] [facility] [address] [place] [address] Referring Physician Urology 08/18/18 Sukhwinder Uribe MD [address] [facility] [address] [place] [address] Consulting Physician Urology 08/18/18 Shay Guillermo MD [address] [facility] [address] [place] [address] Referring Physician Urology 08/18/18 Marsha Landis, RN Registered Nurse 11/17/18 Ilene Fragoso, RN [address] [facility] [address] [place] [address] Brick Or Block Maker 12/23/18 11/01/19 documented as of this encounter
--- OUTSIDE RECORDS SUMMARY | 2024-03-31 11:33 | XMS_ITS | Encounter Summary ---
Author Organization [facility] Address [address] [facility] [address] [place] [address] Care Team Providers Care Financial Assistance Advisor Name Role Phone Kraig Ching MD Primary Care Provider [phone] Gautam Cope MD Unavailable Tramaine Roe MD Unavailable [phone] Sukhwinder Uribe MD Unavailable Shay Guillermo MD Unavailable [phone] Marsha Landis RN Unavailable Unavailab Ilene Kaur RN Unavailable [phone] Reason for Visit * Reason Onset Date Comments frank - medical question 04/10/2019 Encounter Details Date Type Department Care Team (Late st Contact Info) Description 04/10/2019 Telephone [facility] [address] [facility] [address] [place] [address] Kraig Ching MD [address] [facility] [address] [place] [address] frank - medical question Social [...] file 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 ANICAL PLANNER * Telephone Encounter - Wendy Minaya CMA - 04/10/2019 9:39 AM CST fyi ANICAL PLANNER * Telephone Encounter - Nalini Leone - 04/10/2019 9:05 AM CST General Medical Question/Miscellaneous-Sent Message: Caller's Concern: Patient states that he has noticed that he is swelling around his feet and ankles. Duration 10 days States that he has an appt coming up in May and wanted Dr Ching or Katherine to know. Caller's Callback #: [phone] Did you relay expectation for processing (up to 24 hours)? ANICAL PLANNER documented in this encounter Plan of [...] Chronic Care Management No change(03/23 1:47 PM MECHANICAL PLANNER) No Ingrid Oden, SHEA Note: Problem: Chronic Pain Goals: 1. Minimize further functional decline 2. Maximize quality of life 3. Control pain Strategies: - Activity/exercise program recommendation - Conservative stepwise pain medicine strategy with multi-disciplinary approach - Recommend healthy lifestyle strategies and compensatory methods as needed documented as of this encounter Visit Diagnoses Not on filedocumented in this encounter Care Teams Financial Assistance Advisor Relationship Specialty Start Date End Date Kraig Ching MD [address] [place], [place] [id number] PCP - General 07/10/16 Gautam Cope MD [address] [place] [address] Medical Oncologist/Induction Heat Treater Medical Oncology 08/18/18 Tramaine Roe MD [address] [facility] [address] [place] [address] Referring Physician Urology 08/18/18 Sukhwinder Uribe MD [address] [facility] [address] [place] [address] Consulting Physician Urology 08/18/18 Shay Guillermo MD [address] [facility] [address] [place] [address] Referring Physician Urology 08/18/18 Marsha Landis, RN Registered Nurse 11/17/18 Ilene Fragoso, RN [address] [place] [address] [address] [place] [address] Paleontological Helper 12/23/18 11/01/19 documented as of this encounter
--- OUTSIDE RECORDS SUMMARY | 2024-03-31 11:33 | XMS_ITS | Encounter Summary ---
Author Organization [facility] Address [address] [place] [address] Phone Care Team Providers Care Steel Grinder Name Role Phone Kraig Ching MD Primary Care Provider [phone] Gautam Cope MD Unavailable Tramaine Roe MD Unavailable [phone] Sukhwinder Uribe MD Unavailable [phone] Shay Guillermo MD Unavailable [phone] Marsha Landis RN Unavailable Unavailab Ilene Kaur RN Unavailable [phone] Reason for Visit * Episode Based Medications (Routine) - Authorized Specialty Diagnoses / Procedures Referred By Contac t Referred To Contact Oncology Diagnoses Prostate cancer (HCC) Procedures LA LEUPROLIDE ACETATE SUSPNSION Leuprolide Every 3 Months - Prostate Gautam Cope MD [address] [facility] [address] [place] [address] Phone: tel: fax: [facility] - Infusion [address] [facility] Floor 5 [place] [address] Referral ID Status Reason Start Date Expiration Date V isits Requested Visits Authorized [id number] Authorized 09/06/2018 07/11/2024 1 50 Encounter Details Date Type Department Care Team (Late st Contact Info) Description 03/07/2019 10:00 AM 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 UNIT TENDER Office Visit [facility] Oncology [address] [facility] 7th [place] [address] [place] [address] Gautam Cope MD [address] [facility] [address] [place] [address] Prostate cancer (CMS/HCC) (Primary Dx) Social History [...] on file 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 Gender Identity Not on file Sexual Orientation Not on file documented as of this encounter Last Filed Vital Signs Vital Sign Reading Time Taken Comments Blood Pressure 134/74 03/07/2019 8:53 AM 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 UNIT TENDER Pulse 82 03/07/2019 8:53 AM 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 UNIT TENDER Temperature 37.1 ??C (98.7 ??F) 03/07/2019 8:53 AM CS T Respiratory Rate 18 03/07/2019 8:53 AM 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 UNIT TENDER Oxygen Saturation 95% 03/07/2019 8:53 AM 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 UNIT TENDER Inhaled Oxygen Concentration - - Weight 100.9 kg (222 lb 6.4 oz) 019 8:53 AM 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 UNIT TENDER Height - - Body Mass Index 31.46 02/17/2019 1:58 PM 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 UNIT TENDER documented in this encounter Progress Notes * [...] - 03/07/2019 07:52 PM Gautam Cope M.D. class c driver GLORIA/lul LATION POWER UNIT TENDER documented in this encounter Plan of Treatment [...] Chronic Care Management No change(03/23 1:47 PM 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 UNIT TENDER) No Ingrid Oden, SHEA Note: Problem: Chronic Pain Goals: 1. Minimize further functional decline 2. Maximize quality of life 3. Control pain Strategies: - Activity/exercise program recommendation - Conservative stepwise pain medicine strategy with multi-disciplinary approach - Recommend healthy lifestyle strategies and compensatory methods as needed documented as of this encounter Results * Pro B-type natriuretic peptide (03/07/2019 8:48 AM 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 UNIT TENDER) NT-proBNP 155 <=450 pg/mL [facility] Comment: [...] 2017. Blood specimen (specimen) 03/07/2019 8:48 AM 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 UNIT TENDER 03/07/2019 8:55 AM 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 UNIT TENDER Gautam Cope MD LAB BLOOD ORDERABLES Final Resul t Performing Organization Address [facility] de Phone Number [facility] [place] [address] * (ABNORMAL) Hemoglobin A1c (03/07/2019 8:48 AM 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 UNIT TENDER) Hgb A1C 10.1(H) 4.0 - 5.6 % [facility] Estimated Average Glucose 243 mg/dL [facility] Comment: The ADA recommends reporting an estimated Average Glucose (eAG) with all Hemoglobin A1c results using the equation derived from a study of 507 normal and diabetic adults. ??Minority populations were underrepresented and children were not included. ?? (Diabetes Care 31:5321-6944, 2008). ??The eAG is not equivalent to a fasting glucose. Blood specimen (specimen) 03/07/2019 8:48 AM 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 UNIT TENDER 03/07/2019 8:55 AM 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 UNIT TENDER Gautam Cope MD LAB BLOOD ORDERABLES Final Resul t Performing Organization Address [facility] de Phone Number [facility] [place] [address] documented in this encounter Visit Diagnoses Diagnosis Prostate cancer (HCC)- Primary Malignant neoplasm of prostate documented in this encounter Orders Appointment Requests Count Last Ordered Date Fi rst Ordered Date ONCBCN CLINIC APPOINTMENT REQUEST 1 019 documented in this encounter Care Teams Steel Grinder Relationship Specialty Start Date End Date Kraig Ching MD [address] [facility] [address] [place] [address] PCP - General 07/10/16 Gautam Cope MD [address] [facility] [address] [place] [address] Medical Oncologist/Pot Press Operator Medical Oncology 08/18/18 Tramaine Roe MD [address] [facility] [address] [place] [address] Referring Physician Urology 08/18/18 Sukhwinder Uribe MD [address] [facility] [address] [place] [address] Consulting Physician Urology 08/18/18 Shay Guillermo MD [address] [facility] [address] [place] [address] Referring Physician Urology 08/18/18 Marsha Landis, RN Registered Nurse 11/17/18 Ilene Fragoso, RN [address] [place] [address] [address] [place], [place] [id number] Computer Drafter 12/23/18 11/01/19 documented as of this encounter
--- OUTSIDE RECORDS SUMMARY | 2024-03-31 11:33 | XMS_ITS | Encounter Summary ---
Author Organization [facility] Address [address] [facility] [address] [place] [address] Care Team Providers Care Ob Gyn Physician Assistant Name Role Phone Kraig Ching MD Primary Care Provider [phone] Gautam Cope MD Unavailable Tramaine Roe MD Unavailable [phone] Sukhwinder Uribe MD Unavailable [phone] Shay Guillermo MD Unavailable Marsha Landis RN Unavailable Unavailab Ilene Kaur RN Unavailable [phone] Reason for Visit * Reason Onset Date Comments Appointment 09/07/2019 Patient would li ke telephonic appointment at end of 09/2019. 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 [facility] Chronic Pain Care Plan Chronic Care Management No change(03/23 1:47 PM POST TRONIC MACHINE OPERATOR) No Ingrid Oden, SHEA Note: Problem: Chronic Pain Goals: 1. Minimize further functional decline 2. Maximize quality of life 3. Control pain Strategies: - Activity/exercise program recommendation - Conservative stepwise pain medicine strategy with multi-disciplinary approach - Recommend healthy lifestyle strategies and compensatory methods as needed documented as of this encounter Visit Diagnoses Not on filedocumented in this encounter Care Teams Ob Gyn Physician Assistant Relationship Specialty Start Date End Date Kraig Ching MD [address] [facility] [address] [place] [address] PCP - General 07/10/16 Gautam Cope MD [address] [facility] [address] [place] [address] Medical Oncologist/Supervisor Functional Testing Medical Oncology 08/18/18 Tramaine Roe MD [address] [facility] [address] [place] [address] Referring Physician Urology 08/18/18 Sukhwinder Uribe MD [address] [facility] [address] [place] [address] Consulting Physician Urology 08/18/18 Shay Guillermo MD [address] [facility] [address] [place] [address] Referring Physician Urology 08/18/18 Marsha Landis RN Registered Nurse 11/17/18 Ilene Fragoso, SHEA [address] [place] [address] [address] [place] [address] Air Hose Coupler 12/23/18 11/01/19 documented as of this encounter
--- OUTSIDE RECORDS SUMMARY | 2024-03-31 11:33 | XMS_ITS | Encounter Summary ---
Author Organization [facility] Address [address] [place] [address] Phone Care Team Providers Care Rn Hedis Name Role Phone Kraig Ching MD Primary Care Provider [phone] Gautam Cope MD Unavailable Tramaine Roe MD Unavailable [phone] Sukhwinder Uribe MD Unavailable Shay Guillermo MD Unavailable [phone] Marsha Landis RN Unavailable Unavailab Ilene Kaur RN Unavailable [phone] Reason for Visit * Episode Based Medications (Routine) - Authorized Specialty Diagnoses / Procedures Referred By Contac t Referred To Contact Oncology Diagnoses Prostate cancer (HCC) Procedures [place] LEUPROLIDE ACETATE SUSPNSION Leuprolide Every 3 Months - Prostate Gautam Cope MD [address] [facility] [address] [place] [address] Phone: tel: fax: [facility] - Infusion [address] [facility] Floor 5 [place] [address] Referral ID Status Reason Start Date Expiration Date V isits Requested Visits Authorized [id number] Authorized 09/06/2018 07/11/2024 1 50 Encounter Details Date Type Department Care Team (Late st Contact Info) Description 03/07/2019 11:00 AM CISCO 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 Infusion [facility] [address] 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 Patient tolerated procedure well. Patient left clinic ambulatory. Ana Pathak RN O 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 documented in this encounter Plan of [...] to monitor diabetes and kidney status, etc. [facility] Chronic Pain Care Plan Chronic Care Management No change(03/23 1:47 PM CISCO 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) No Ingrid Oden, SHEA Note: Problem: [...] doseIndications:Prostate cancer (HCC) Given 03/07/2019 10:09 AM CISCO 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 22.5 mg Right Dorsogluteal/Butto ck documented in this encounter Orders Nursing Count Last Ordered Date First Orde red Date ONCBCN TREATMENT PARAMETERS 2 1 03/07/2019 Appointment Requests Count Last Ordered Date Fi rst Ordered Date ONCBCN INJECTION APPOINTMENT REQUEST 1 02/11 documented in this encounter Care Teams Rn Hedis Relationship Specialty Start Date End Date Kraig Ching MD [address] [facility] [facility] [address] [place] [address] PCP - General 07/10/16 Gautam Cope MD [address] [facility] [place] [address] Medical Oncologist/Brick Unloader Tender Medical Oncology 08/18/18 Tramaine Roe MD [address] [facility] [address] [place] [address] Referring Physician Urology 08/18/18 Sukhwinder Uribe MD [id number] [place] [address] Consulting Physician Urology 08/18/18 Shay Guillermo MD [id number] [place] [address] Referring Physician Urology 08/18/18 Marsha Landis, RN Registered Nurse 11/17/18 Ilene Fragoso, RN [address] [facility] [address] [place] [address] Butt Presser 12/23/18 11/01/19 documented as of this encounter
--- OUTSIDE RECORDS SUMMARY | 2024-03-31 11:33 | XMS_ITS | Encounter Summary ---
Author Organization [facility] Address [address] [facility] [address] [place] [address] Care Team Providers Care Monument Installer Name Role Phone Kraig Ching MD Primary Care Provider [phone] Gautam Cope MD Unavailable Tramaine Roe MD Unavailable [phone] Sukhwinder Uribe MD Unavailable [phone] Shay Guillermo MD Unavailable Marsha Landis RN Unavailable Unavailab Ilene Kaur RN Unavailable [phone] Encounter Details Date Type Department Care Team (Late st Contact Info) Description 05/12/2019 Orders Only [facility] [address] [facility] [address] [place] [address] Kraig Ching MD [address] [facility] [address] [place], [place] [address] Social History Tobacco Use Types Packs/Day Years [...] file 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 Minimize further functional decline 2. Maximize quality of life 3. Control pain Strategies: - Activity/exercise program recommendation - Conservative stepwise pain medicine strategy with multi-disciplinary approach - Recommend healthy lifestyle strategies and compensatory methods as needed documented as of this encounter Visit Diagnoses Not on filedocumented in this encounter Care Teams Monument Installer Relationship Specialty Start Date End Date Kraig Ching MD [address] [place] [address] PCP - General 07/10/16 Gautam Cope MD [address] [place] [address] Medical Oncologist/Welder Plasma Arc Medical Oncology 08/18/18 Tramaine Roe MD [address] [place] [address] Referring Physician Urology 08/18/18 Sukhwinder Uribe MD [address] [facility] [address] [place] [address] Consulting Physician Urology 08/18/18 Shay Guillermo MD [address] [facility] [address] [place] [address] Referring Physician Urology 08/18/18 Marsha Landis, RN Registered Nurse 11/17/18 Ilene Fragoso, RN [address] [facility] [address] [place] [address] Consultant Education 12/23/18 11/01/19 documented as of this encounter
--- OUTSIDE RECORDS SUMMARY | 2024-03-31 11:33 | XMS_ITS | Encounter Summary ---
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 [facility] Chronic Pain Care Plan Chronic Care Management No change(03/23 1:47 PM SPINNING BATH PERSON) No Ingrid Oden, SHEA Note: Problem: Chronic Pain Goals: 1. Minimize further functional decline 2. Maximize quality of life 3. Control pain Strategies: - Activity/exercise program recommendation - Conservative stepwise pain medicine strategy with multi-disciplinary approach - Recommend healthy lifestyle strategies and compensatory methods as needed documented as of this encounter Visit Diagnoses Not on filedocumented in this encounter Care Teams Admitting Clerk Relationship Specialty Start Date End Date Kraig Ching MD [address] [place] [address] PCP - General 07/10/16 Gautam Cope MD [address] [place] [address] Medical Oncologist/Quality Improvement Analyst Medical Oncology 08/18/18 Tramaine Roe MD [address] [place] [address] Referring Physician Urology 08/18/18 Sukhwinder Uribe MD [address] [place] [address] Consulting Physician Urology 08/18/18 Shay Guillermo MD [address] [place] [address] Referring Physician Urology 08/18/18 Marsha Landis, RN Registered Nurse 11/17/18 Ilene Fragoso, RN [address] [facility] [address] [place] [address] Employment Consultant 12/23/18 11/01/19 documented as of this encounter
--- OUTSIDE RECORDS SUMMARY | 2024-03-31 11:33 | XMS_ITS | Encounter Summary ---
Author Organization [facility] Address [address] [place] [address] Phone Care Team Providers Care Pressure Tester Name Role Phone Kraig Ching MD Primary Care Provider [phone] Gautam Cope MD Unavailable Tramaine Roe MD Unavailable [phone] Sukhwinder Uribe MD Unavailable [phone] Shay Guillermo MD Unavailable [phone] Marsha Landis RN Unavailable Unavailab Ilene Kaur RN Unavailable [phone] Encounter Details Date Type Department Care Team (Late st Contact Info) Description 08/22/2019 Orders Only [facility] Oncology [address] [facility] Advanced Medicine 7th [place] [address] [place] [address] Muna Saleem RN Prostate cancer [...] file 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 Gender Identity Not on file Sexual [...] Care Management No change(03/23 1:47 PM ELECTRONICS SUPERVISOR) No Ingrid Oden, SHEA Note: Problem: [...] Final Resul t [facility] Department [place] [address] * (ABNORMAL) Comprehensive metabolic panel (11/14/2019 10:07 AM CDT) Sodium 139 135 - 145 mmol/L [facility] Comment:Testing performed by : [facility], [address] [place] [phone] Potassium, pl 4.3 3.3 - 4.9 mmol/L [facility]J Comment:Testing performed by : [facility], [address] [place] [phone] Chloride 100 97 - 110 mmol/L [facility] Comment:Testing performed by : [facility], [address] [place] [phone] CO2 29 22 - 32 mmol/L [facility] Comment:Testing performed by : [facility], [address] [place] [phone] Anion gap 10 2 - 15 mmol/L [facility]J Comment:Testing performed by : [facility], [address] [place] [phone] BUN 37(H) 8 - 25 mg/dL [facility] Comment:Testing performed by : [facility], [address] [place] [phone] Creatinine 2.19(H) 0.80 - 1.30 mg/dL [facility]J Comment:Testing performed by : [facility], [address] [place] [phone] Glucose 142 70 - 199 mg/dL CERNER [...] Testing performed by: [facility], [address] [place] [phone] Calcium 9.6 8.5 - 10.3 mg/dL [facility] BJ Comment:Testing performed by : [facility], [address] [place] [phone] Bilirubin, total 0.5 0.1 - 1.2 mg/dL [facility] BJ Comment:Testing performed by : [facility], [address] [place] [phone] Protein, pl 6.7 6.5 - 8.5 g/dL [facility]O Comment:Testing performed by : [facility], [address] [place] [phone] Albumin 4.2 3.5 - 5.0 g/dL [facility] Comment:Testing performed by : [facility], [address] [place] [phone] Alk phos 110 40 - 130 Units/L [facility] Comment:Testing performed by : [facility], [address] [place] [phone] ALT 13 7 - 55 Units/L [facility] Comment:Testing performed by : [facility], [address] [place] [phone] AST 13 10 - 50 Units/L [facility] Comment:Testing performed by : [facility], [address] [place] [phone] Blood specimen (specimen) 11/14/2019 10:07 AM CDT 11/14/2019 10:10 AM CDT us Gautam Cope MD LAB BLOOD ORDERABLES Final Resul t [facility] Department [place] [address] * (ABNORMAL) CBC with auto differential (11/14/2019 10:07 AM CDT) WBC 9.8 3.8 - 9.8 K/cumm [facility] Comment:Testing performed by : [facility], [address] [place] [phone] Hgb 12.8(L) 13.8 - 17.2 g/dL [facility] Comment:Testing performed by : [facility], [address] [place] [phone] Hct 37.7(L) 40.7 - 50.3 % [facility] Comment:Testing performed by : [facility], [address] [place] [phone] Plt 337 140 - 440 K/cumm [facility] Comment:Testing performed by : [facility], [address] [place] [phone] MPV 7.8 6.8 - 10.4 fL [facility] Comment:Testing performed by : [facility], [address] [place] [address] RBC 4.23(L) 4.50 - 5.70 M/cumm [facility] Comment:Testing performed by : [facility], [address] [place] [address] MCV 89.3 80.0 - 97.6 fL [facility] Comment:Testing performed by : [facility], [address] [place], [place] [phone] MCH 30.3 26.7 - 33.7 pg [facility] Comment:Testing performed by : [place] [phone] MCHC 33.9 32.7 - 35.5 g/dL [facility] Comment:Testing performed by : [facility], [address] [place], [place] [phone] RDW CV 14.6 11.8 - 14.6 % [facility] Comment:Testing performed by : [place] [phone] NRBC abs 0.00 0.00 - 0.01 K/cumm [facility] Comment:Testing performed by : [place] [phone] Blood specimen (specimen) 11/14/2019 10:07 AM CDT 11/14/2019 10:10 AM CDT us Gautam Cope MD LAB BLOOD ORDERABLES Final Resul t [facility] Department [place] [address] * Lactate dehydrogenase (LD) (11/14/2019 10:07 AM CDT) Lactate dehydrogenase (LDH) 175 100 - 250 Units/L [facility] Comment:Testing performed by : [facility], [facility] [phone] Blood specimen (specimen) 11/14/2019 10:07 AM CDT 11/14/2019 10:10 AM CDT us Gautam Cope MD LAB BLOOD ORDERABLES Final Resul t Performing Organization Address City/State/[facility] Co il Phone Number [facility] Department [place] [address] documented in this encounter Visit Diagnoses Diagnosis Prostate cancer (HCC)- Primary Malignant neoplasm of prostate documented in this encounter Orders Appointment Requests Count Last Ordered Date Fi rst Ordered Date ONCBCN CLINIC APPOINTMENT REQUEST 1 020 ONCBCN INJECTION APPOINTMENT REQUEST 1 07/2019 ONCBCN LAB APPOINTMENT 1 11/14/2019 documented in this encounter Care Teams Pressure Tester Relationship Specialty Start Date End Date Kraig Ching MD [address] [facility] [address] [place] [address] PCP - General 07/10/16 Gautam Cope MD [address] [facility] [address] [place] [address] Medical Oncologist/Instructor Private Medical Oncology 08/18/18 Tramaine Roe MD [address] [facility] [address] [place] [address] Referring Physician Urology 08/18/18 Sukhwinder Uribe MD [address] [facility] [address] [place] [address] Consulting Physician Urology 08/18/18 Shay Guillermo MD [address] [facility] [address] [place] [address] Referring Physician Urology 08/18/18 Marsha Landis, RN Registered Nurse 11/17/18 Ilene Fragoso, RN [address] [place] [address] Fruit Packer Face And Fill 12/23/18 11/01/19 documented as of this encounter
--- OUTSIDE RECORDS SUMMARY | 2024-03-31 11:33 | XMS_ITS | Encounter Summary ---
Author Organization 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 [facility] Chronic Pain Care Plan Chronic Care Management No change(03/23 1:47 PM ALLERGIST/IMMUNOLOGIST) No Ingrid Oden, SHEA Note: Problem: Chronic [...] filedocumented in this encounter Care Teams Apple Picker Relationship Specialty Start Date End Date Kraig Ching MD [address] [place] [address] PCP - General 07/10/16 Gautam Cope MD [address] [place] [address] Medical Oncologist/Movie Writer Medical Oncology 08/18/18 Tramaine Roe MD [address] [place] [address] Referring Physician Urology 08/18/18 Sukhwinder Uribe MD [address] [facility] [address] [place] [address] Consulting Physician Urology 08/18/18 Shay Guillermo MD [address] [place] [address] Referring Physician Urology 08/18/18 Marsha Landis, RN Registered Nurse 11/17/18 Ilene Fragoso, SEHA [address] [facility] [address] [place] [address] Unit Controller 12/23/18 11/01/19 documented as of this encounter
--- OUTSIDE RECORDS SUMMARY | 2024-03-31 11:33 | XMS_ITS | Encounter Summary ---
Author Organization [facility] Address [address] [facility] [address] [place] [address] Care Team Providers Care Equity Research Associate Name Role Phone Kriag Ching MD Primary Care Provider Gautam Cope MD Unavailable Tramaine Roe MD Unavailable [phone] Sukhwinder Uribe MD Unavailable [phone] Shay Guillermo MD Unavailable Marsha Landis RN Unavailable Unavailab Ilene Kaur RN Unavailable [phone] Reason for Visit * Reason Onset Date Comments Scheduling of Tele Health visit 09/08/2019 Encounter Details Date Type Department Care Team (Late st Contact Info) Description 09/08/2019 Telephone [facility] [address] [facility] [address] [place] [address] Kraig Ching MD [address] [facility] [address] [place], [place] [id number] Scheduling of Tele Health visit Social History [...] file 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 Advised patient of message sent via [employer]. Patient requested information be relayed. Patient uncertain if computer or ipad would be used. Indicated would begin to monitor on My Chart. Ilene Fragoso RN, BSN, MSN Bakery Demonstrator, [facility] [email or web address] [phone] documented in this encounter Plan of Treatment [...] Care Management No change(03/23 1:47 PM SOLAR ENERGY ENGINEER) No Ingrid Oden, SHEA Note: Problem: Chronic Pain Goals: 1. Minimize further functional decline 2. Maximize quality of life 3. Control pain Strategies: - Activity/exercise program recommendation - Conservative stepwise pain medicine strategy with multi-disciplinary approach - Recommend healthy lifestyle strategies and compensatory methods as needed documented as of this encounter Visit Diagnoses Not on filedocumented in this encounter Care Teams Equity Research Associate Relationship Specialty [place] [address] [place] [address] [address] [place] [address] PCP - General 07/10/16 Gautam Cope MD [address] [facility] [address] [place] [address] Medical Oncologist/Dyed Yarn Operator Medical Oncology 08/18/18 Tramaine Roe MD [address] [facility] [address] [place] [address] Referring Physician Urology 08/18/18 Sukhwinder Uribe MD [address] [facility] [address] [place] [address] Consulting Physician Urology 08/18/18 Shay Guillermo MD [address] [facility] [address] [place] [address] Referring Physician Urology 08/18/18 Marsha Landis RN Registered Nurse 11/17/18 Ilene Fragoso, RN [address] [place] [address] [address] [place] [address] Bakery Demonstrator 12/23/18 11/01/19 documented as of this encounter
--- OUTSIDE RECORDS SUMMARY | 2024-03-31 11:33 | XMS_ITS | Encounter Summary ---
Author Organization [facility] Address [address] [facility] [address] [place] [address] Care Team Providers Care Social Work Job Titles Name Role Phone Kraig Ching MD Primary Care Provider [phone] Gautam Cope MD Unavailable Tramaine Roe MD Unavailable [phone] Sukhwinder Uribe MD Unavailable [phone] Shay uGillermo MD Unavailable [phone] Marsha Landis RN Unavailable Unavailab Ilene Kaur RN Unavailable [phone] Reason for Visit * Reason Comments Chronic Condition Encounter Details Date Type Department Care Team (Late st Contact Info) Description 05/22/2019 11:45 AM 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 Office Visit [facility] [address] [facility] [address] [place] [address] Katherine Del Rio PA [address] [facility] [address] [place], [place] [id number] Type 2 diabetes mellitus with stage 3 [...] file Legal Sex Male 4:46 PM 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 Gender Identity Not on file Sexual Orientation Not on file documented as of this encounter Last Filed Vital Signs Vital Sign Reading Time Taken Comments Blood Pressure 116/68 05/22/2019 11:51 AM 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 Pulse 71 05/22/2019 11:51 AM 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 Temperature 36.7 ??C (98.1 ??F) 05/22/2019 11:[address] Respiratory Rate 18 05/22/2019 11:51 AM 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 Oxygen Saturation 96% 05/22/2019 11:51 AM 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 Inhaled Oxygen Concentration - - Weight 99.3 kg (219 lb) 05/22/2019 11:51 AM 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 Height 179.1 cm (5' 10.5 ) 05/22/2019 11:[address] Body Mass Index 30.98 05/22/2019 11:51 AM 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 documented in this encounter Ordered Prescriptions Prescription [...] disease, without long-term current use of insulin ([facility]) (Primary) Comments: Uncontrolled. Lab today. Titrate lantus to 12 units. Low carb diet and regular exercise encouraged. Orders: - Albumin Creatinine Ratio, Urine; Future Essential hypertension Comments: BP at goal. Lab today. Continue current medications. Low sodium goals reviewed. Orders: - Basic metabolic panel (Outreach); Future Chronic obstructive pulmonary disease, unspecified COPD type ([facility]) Comments: O2 sat 96%. Lungs CTA. Albuterol prescribed. Orders: - albuterol HFA (Ventolin HFA) 90 mcg/actuation inhaler; Inhale 2 puffs every 4 (four) hours as needed for wheezing or shortness of breath PAF (paroxysmal atrial fibrillation) ([facility]) Comments: RRR today. Continue diltiazem. Obesity (BMI 30-39.9) BMI 30.0-30.9,adult [place] OPEDIC PODIATRIST documented in this encounter Plan of Treatment [...] diabetes and kidney status, etc. [facility] Chronic Pain Care Plan Chronic Care Management No change(03/23 1:47 PM 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) No Ingrid Oden RN Note: Problem: Chronic Pain Goals: 1. Minimize further functional decline 2. Maximize quality of life 3. Control pain Strategies: - Activity/exercise program recommendation - Conservative stepwise pain medicine strategy with multi-disciplinary approach - Recommend healthy lifestyle strategies and compensatory methods as needed documented as of this encounter Results * (ABNORMAL) Albumin Creatinine Ratio, Urine (05/22/2019 1:01 PM 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) Albumin Ur 56.5 mg/L [facility] Comment: Interpretive Data No reference range established. Current interpretive data was last revised 2018. Creatinine Ur 114.4 mg/dL [facility] Comment: Interpretive Data No reference range established. Current interpretive data was last revised 2018. Albumin Creatinine Ratio, Ur 49(H) 1 - 29 mg/g [facility] Urine 05/22/2019 1:01 PM 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 05/22/2019 4:48 PM 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 Katherine ESQUIVEL LAB URINE ORDERABLES Final Result [facility] Department [place] [address] documented in this encounter Visit Diagnoses Diagnosis Type 2 diabetes mellitus with stage 3 chronic kidney disease, without long-term current use of insulin (HCC)- Primary Essential hypertension Unspecified essential hypertension Chronic obstructive pulmonary disease, unspecified COPD type (HCC) PAF (paroxysmal atrial fibrillation) (CMS/HCC) (HCC) Atrial fibrillation Obesity (BMI 30-39.9) BMI 30.0-30.9,adult documented in this encounter Care Teams Social Work Job Titles Relationship Specialty Start Date End Date Kraig Ching MD [address] [facility] [address] [place] [address] PCP - General 07/10/16 Gautam Cope MD [address] [facility] [address] [place] [address] Medical Oncologist/Plate Mill Mill Hand Medical Oncology 08/18/18 Tramaine Roe MD [address] [facility] [address] [place] [address] Referring Physician Urology 08/18/18 Sukhwinder Uribe MD [address] [facility] [address] [place] [address] Consulting Physician Urology 08/18/18 Shay Guillermo MD [address] [facility] [address] [place] [address] Referring Physician Urology 08/18/18 Marsha Landis, RN Registered Nurse 11/17/18 Ilene Fragoso, SHEA [address] [place] [address] [address] [place] [address] Sail Finisher Hand 12/23/18 11/01/19 documented as of this encounter
--- OUTSIDE RECORDS SUMMARY | 2024-03-31 11:33 | XMS_ITS | Encounter Summary ---
Author Organization [facility] Address [address] [place] [address] Care Team Providers Care First Aid Nurse Name Role Phone Kraig Ching MD Primary Care Provider [phone] Gautam Cope MD Unavailable Tramaine Roe MD Unavailable [phone] Sukhwinder Uribe MD Unavailable [phone] Shay Guillermo MD Unavailable [phone] Marsha Landis RN Unavailable Unavailab Ilene Kaur RN Unavailable [phone] Reason for Referral * MRI/CAT/PET Scan (Routine) - Closed Specialty Diagnoses / [facility] To Contact Radiology Diagnoses Prostate cancer (HCC) Procedures CT chest abdomen pelvis without contrast Gautam Cope MD [email or web address] [facility] [address] [place] [address] Phone: tel: fax: [facility] [address] [place] [address] Referral ID Status Reason Start Date Expiration Date Visits Re quested Visits Authorized [id number] Closed 08/09/2019 02/17/2021 1 1 Reason for Visit * MRI/CAT/PET Scan (Routine) - Closed Specialty Diagnoses / Procedures [facility] Referred To Contact Radiology Diagnoses Prostate cancer (HCC) Procedures CT chest abdomen pelvis without contrast Gautam Cope MD [address] [facility] [address] [place] [address] Phone: tel: fax: [facility] [address] [facility] [place] [address] Referral ID Status Reason Start Date Expiration Date Visits Re quested Visits Authorized [id number] Closed 08/09/2019 02/17/2021 1 1 Encounter Details Date Type Department Care Team (Latest Contact Info) Description 08/15/2019 9:57 AM CDT - 08/15/2019 11:59 PM CDT Hospital Encounter [facility] [address] [place] [address] Gautam Cope MD [address] 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 Gender Identity Not on file Sexual Orientation [...] Chronic obstructive pulmonary disease, unspecified COPD type ([facility] [...] long-term current use of insulin ([facility]) INJECT 10 UNITS UNDER THE SKIN DAILY [...] long-term current use of insulin ([facility]) TAKE 1 TABLET BY MOUTH DAILY [...] Chronic Care Management No change(03/23 1:47 PM HOUSEHOLD CHORES) No Ingrid Oden, RN Note: Problem: Chronic [...] prostate documented in this encounter Care Teams First Aid Nurse Relationship Specialty Start Date End Date Kraig Ching MD [address] [place] [address] PCP - General 07/10/16 Gautam Cope MD [address] [place] [address] Medical Oncologist/Subcontract Manager Medical Oncology 08/18/18 Tramaine Roe MD [address] [facility] [address] [place] [address] Referring Physician Urology 08/18/18 Sukhwinder Uribe MD [address] [facility] [address] [place] [address] Consulting Physician Urology 08/18/18 Shay Guillermo MD [address] [facility] [address] [place] [address] Referring Physician Urology 08/18/18 Marsha Landis, RN Registered Nurse 11/17/18 Ilene Fragoso, SHEA [address] [facility] [address] [place] [address] Musical Instrument Maker Or Repairer 12/23/18 11/01/19 documented as of this encounter
--- OUTSIDE RECORDS SUMMARY | 2024-03-31 11:33 | XMS_ITS | Encounter Summary ---
Author Organization [facility] Address [address] [facility] [address] [place] [address] Care Team Providers Care Building Appraiser Name Role Phone Kraig Ching MD Primary Care Provider [phone] Gautam Cope MD Unavailable Tramaine Roe MD Unavailable [phone] Sukhwinder Uribe MD Unavailable Shay Guillermo MD Unavailable Marsha Landis RN Unavailable Unavailab Ilene Kaur RN Unavailable [phone] Reason for Visit * Reason Onset Date Comments Sinusitis 05/12/2019 Encounter Details Date Type Department Care Team (Late st Contact Info) Description 05/12/2019 Nurse Triage [facility] [address] [facility] [address] [place] [address] Kraig Ching MD [address] [facility] [address] [place], [place] [id number] Social History Tobacco Use Types Packs/Day Years [...] on file 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 NALYST * Telephone Encounter - Wendy Minaya CMA - 05/12/2019 10:28 AM BIOANALYST Please advise. Patient declines appointment. JJ Rider NALYST * Telephone Encounter - Beatris Vergara RN - 05/12/2019 9:58 AM CST Reason for Disposition ??? Lots of coughing Protocols used: SINUS PAIN AND [id number] Pt reports sinus pain and congestion, non-productive cough, fatigue. Chest feels tight, eyes are watery and face is red. He denies dyspnea, fever, chest pain. He is not taking anything for his symptoms. has same symptoms. Disposition per guideline: Home care/education/call back instruction given:declines appt. Requests medication be sent to [facility] on file. Callback #: [phone]. Tasked PCP NALYST * Telephone Encounter - Beatris Vergara RN - 05/12/2019 9:55 AM CST Regarding: Possible Sinus Infection ----- Message from Mary Thayer sent at 05/12/2019 9:13 AM BIOANALYST ----- Symptom Based Call Chief Complaint: Possible Sinus Infection Duration: About a week Appointment Details: Non emergent Caller's Callback #: [phone] Additional Comments: sinus issues possible infection yellow drainage, congestion in chest and non productive cough and sinus pain in forehead and temples, slight chills unsure of fever, symptoms reported by patient If practice uses e-visit, condition meets e-visit criteria, and patient has MyChart did you offer e-visit?: na Did you relay expectation for call back (police artist: Red Flag 10-15 min; non- emergent up to 3 hours)(Practice: Red Flag warm transfer; non-emergent up to 24 hours)? Yes 3 hours NALYST documented in this encounter Plan of Treatment [...] Chronic Care Management No change(03/23 1:47 PM BIOANALYST) No Ingrid Oden RN Note: Problem: Chronic Pain Goals: 1. Minimize further functional decline 2. Maximize quality of life 3. Control pain Strategies: - Activity/exercise program recommendation - Conservative stepwise pain medicine strategy with multi-disciplinary approach - Recommend healthy lifestyle strategies and compensatory methods as needed documented as of this encounter Visit Diagnoses Not on filedocumented in this encounter Care Teams Building Appraiser Relationship Specialty Start Date End Date Kraig Ching MD [address] [facility] [address] [place] [address] PCP - General 07/10/16 Gautam Cope MD [address] [facility] [address] [place] [address] Medical Oncologist/Tar Pot Worker Medical Oncology 08/18/18 Tramaine Roe MD [address] [facility] [address] [place] [address] Referring Physician Urology 08/18/18 Sukhwinder Uribe MD [address] [facility] [address] [place] [address] Consulting Physician Urology 08/18/18 Shay Guillermo MD [address] [facility] [address] [place] [address] Referring Physician Urology 08/18/18 Marsha Landis, RN Registered Nurse 11/17/18 Ilene Fragoso, RN [address] [facility] [address] [place] [address] Army Ranger 12/23/18 11/01/19 documented as of this encounter
--- OUTSIDE RECORDS SUMMARY | 2024-03-31 11:33 | XMS_ITS | Encounter Summary ---
Author Organization [facility] Address [address] [place] [address] Phone Care Team Providers Care Material Scheduler Name Role Phone Kraig Ching MD Primary Care Provider [phone] Gautam Cope MD Unavailable Tramaine Roe MD Unavailable [phone] Sukhwinder Uribe MD Unavailable [phone] Shay Guillermo MD Unavailable [phone] Marsha Landis RN Unavailable Unavailab Ilene Kaur RN Unavailable [phone] Reason for Visit * Episode Based Medications (Routine) - Authorized Specialty Diagnoses / Procedures Referred By Contac t Referred To Contact Oncology Diagnoses Prostate cancer (HCC) Procedures MS LEUPROLIDE ACETATE SUSPNSION Leuprolide Every 3 Months - Prostate Gautam Cope MD [address] [facility] [address] [place] [address] Phone: tel: fax: [facility] - Infusion [address] [facility] [address] [place] [address] Referral ID Status Reason Start Date Expiration Date V isits Requested Visits Authorized [id number] Authorized 09/06/2018 07/11/2024 1 50 Encounter Details Date Type Department Care Team (Late st Contact Info) Description 05/30/2019 10:30 AM ARBOR END MAINSPRING FORMER Lab [facility] Oncology [address] [facility] 7th [place] [address] [place] [address] Prostate cancer ([facility]) Social History Tobacco Use Types [...] on file Legal Sex Male 4:46 PM ARBOR END MAINSPRING FORMER Gender Identity Not on file Sexual Orientation [...] to monitor diabetes and kidney status, etc. [facility] Chronic Pain Care Plan Chronic Care Management No change(03/23 1:47 PM ARBOR END MAINSPRING FORMER) No Ingrid Oden, SHEA Note: Problem: Chronic [...] Comments PSA DIAGNOSTIC Routine 05/30/2019 10:55 AM ARBOR END MAINSPRING FORMER Prostate cancer ([facility]) LACTATE DEHYDROGENASE Routine 05/30/2019 10:55 AM ARBOR [facility]INSPR[facility] FORMER Prostate cancer ([facility]) HEMOGLOBIN A1C Routine 05/30/2019 10:55 AM ARBOR END [facility]INSPRING FORMER Prostate cancer ([facility]) COMPREHENSIVE METABOLIC PANEL Routine 05/30/2019 10:55 AM ARBOR [facility]INS[facility] FORMER Prostate cancer ([facility]) DIFFERENTIAL AUTO Routine 05/30/2019 10: 51 AM ARB[facility] END [employer]INSPRING FORMER Prostate cancer ([facility]) CBC WITH AUTO DIFFERENTIAL Routine 05/30/2019 10:51 AM ARB[facility] END MAINSPRING FORMER Prostate cancer ([facility]) documented in this encounter Results * (ABNORMAL) Hemoglobin A1c (05/30/2019 10:55 AM ARBOR [facility] MAINSPRING FORMER) Hgb A1C 11.4(H) 4.0 - 5.6 % [facility] Estimated Average Glucose 280 mg/dL [facility] Comment: The ADA recommends reporting an estimated Average Glucose (eAG) with all Hemoglobin A1c results using the equation derived from a study of 507 normal and diabetic adults. ??Minority populations were underrepresented and children were not included. ?? (Diabetes Care 31:0134-4318, 2008). ??The eAG is not equivalent to a fasting glucose. Blood specimen (specimen) 05/30/2019 10:55 AM ARBOR [facility] MAINS[facility]ING FORMER 05/30/2019 11:03 AM ARBOR END [facility]INSPRING FORMER us Gautam Cope MD LAB BLOOD ORDERABLES Final Resul t Performing Organization Address City/[facility] Co de Phone Number [facility] [place] [address] * Lactate dehydrogenase (LD) (05/30/2019 10:55 AM ARBOR END MAINS[facility]ING FORMER) Lactate dehydrogenase (LDH) 204 100 - 250 Units/L [facility] Blood specimen (specimen) 05/30/2019 10:55 AM ARB[facility]PR[facility] FORMER 05/30/2019 11:34 AM ARBOR END [facility]INS[facility]ING FORMER us Gautam Cope MD LAB BLOOD ORDERABLES Final Resul t Performing Organization Address [facility] de Phone Number [facility] [place] [address] * (ABNORMAL) Comprehensive metabolic panel (05/30/2019 10:55 AM ARBOR [facility]INS[facility]ING FORMER) Sodium 137 135 - 145 mmol/L [facility] Potassium, pl 4.6 3.3 - 4.9 mmol/L [facility] Chloride 98 97 - 110 mmol/L [facility] CO2 29 22 - 32 mmol/L [facility] Anion gap 10 2 - 15 mmol/L [facility] BUN 29(H) 8 - 25 mg/dL [facility] Creatinine 1.48(H) 0.80 - 1.30 mg/dL [facility] Glucose 259(H) 70 - 199 mg/dL [facility] Comment: Interpretive Data Fasting glucose >/= [...] 2017. Calcium 9.9 8.5 - 10.3 mg/dL [facility] Bilirubin, total 0.4 0.1 - 1.2 mg/dL [facility] Protein, pl 7.1 6.5 - 8.5 g/dL [facility] Albumin 4.1 3.5 - 5.0 g/dL [facility] Alk phos 104 40 - 130 Units/L [facility] ALT 19 7 - 55 Units/L [facility] AST 18 10 - 50 Units/L [facility] Blood specimen (specimen) 05/30/2019 10:55 AM ARB[facility] FORMER 05/30/2019 11:34 AM ARBOR END [facility] FORMER us Gautam Cope MD LAB BLOOD ORDERABLES Final Resul t [facility] One [facility] Department [place] [address] * PSA diagnostic (05/30/2019 10:55 AM ARBOR [facility] FORMER) PSA-Total <0.10 <=6.20 ng/mL [facility] Comment: Interpretive Data ?AGE ? SEX ?REFERENCE INTERVAL 0 minutes-150 years ?Female ?None 0 minutes-49 years ? Male ?None ? 50-59 years ? Male ?0-3.90 ? 60-69 years ? Male ?0-5.40 ? 70-79 years ? Male ?0-6.20 ? 80-150 years ?Male ?0-6.20 Current interpretive data last revised 2017. Blood specimen (specimen) 05/30/2019 10:55 AM ARB[facility] FORMER 05/30/2019 11:34 AM ARB[facility] FORMER us Gautam Cope MD LAB BLOOD ORDERABLES Final Resul t [facility] One [facility] Department [place] [address] * (ABNORMAL) Differential, auto (05/30/2019 10:51 AM ARBOR [facility] FORMER) Neutrophil abs 8.2(H) 1.8 - 6.6 K/cumm [facility] Comment:Testing performed by : [facility], [address] [place] [phone] Lymphocyte abs 1.3 1.2 - 3.3 K/cumm [facility] Comment:Testing performed by : [facility], [address] [place] [phone] Monocyte abs 0.8 0.2 - 1.2 K/cumm [facility] Comment:Testing performed by : [facility], [address] [place] [phone] Eosinophil abs 0.1 0.0 - 0.5 K/cumm [facility] Comment:Testing performed by : [facility], [address] [place] [phone] Basophil abs 0.0 0.0 - 0.2 K/cumm [facility] Comment:Testing performed by : [facility], [address] [place] [phone] Neutrophil pct 78.7 % [facility] Comment: Interpretive Data Percent cell count reference ranges are not reported, since discordance with absolute values may lead to misinterpretation of CBC data. Current Interpretive Data was last revised on 2017. Testing performed by: [facility], [address] [place] [phone] Lymphocyte pct 12.7 % [facility] Comment: Interpretive Data Percent cell count reference ranges are not reported, since discordance with absolute values may lead to misinterpretation of CBC data. Current Interpretive Data was last revised on 2017. Testing performed by: [facility], [address] [place] [phone] Monocyte pct 7.2 % [facility] Comment:Testing performed by : [facility], [address] [place] [phone] Eosinophil pct 1.1 % [facility] Comment:Testing performed by : [facility], [address] [place] [phone] Basophil pct 0.3 % [facility] Comment:Testing performed by : [facility], [address] [place] [phone] Blood specimen (specimen) 05/30/2019 10:51 AM ARB[facility] FORMER 05/30/2019 10:55 AM ARB[facility] END [facility]INSPR[facility] FORMER us Gautam Cope MD LAB BLOOD ORDERABLES Final Resul t [facility] One [facility] Department [place] [address] * (ABNORMAL) CBC with auto differential (05/30/2019 10:51 AM ARB[facility]INS[facility] FORMER) WBC 10.5(H) 3.8 - 9.8 K/cumm [facility] Comment:Testing performed by : [facility], [address] [place] [phone] Hgb 12.1(L) 13.8 - 17.2 g/dL [facility] Comment:Testing performed by : [facility], [address] [place] [phone] Hct 36.3(L) 40.7 - 50.3 % [facility] Comment:Testing performed by : [facility], [address] [place] [phone] Plt 381 140 - 440 K/cumm [facility] Comment:Testing performed by : [facility], [address] [place] [phone] MPV 7.7 6.8 - 10.[address] [facility] Comment:Testing performed by : [facility], [address] [place], [place] [phone] RBC 4.01(L) 4.50 - 5.70 M/cumm [facility] Comment:Testing performed by : [facility], [address] [place], [place] [phone] MCV 90.6 80.0 - 97.6 fL [facility] Comment:Testing performed by : [facility], [address] [place] [phone] MCH 30.2 26.7 - 33.7 pg [facility] Comment:Testing performed by : [facility], [address] [place], [place] [phone] MCHC 33.4 32.7 - 35.5 g/dL [facility] Comment:Testing performed by : [facility], [address] [place] [phone] RDW CV 13.5 11.8 - 14.6 % [facility] Comment:Testing performed by : [facility], [address] [place] [phone] NRBC abs 0.00 0.00 - 0.01 K/cumm [facility] Comment:Testing performed by : [facility], [address] [place] [phone] Blood specimen (specimen) 05/30/2019 10:51 AM ARB[facility] FORMER 05/30/2019 10:55 AM ARB[facility] FORMER us Gautam Cope MD LAB BLOOD ORDERABLES Final Resul t [facility] One [facility] Department [place] [address] documented in this encounter Visit Diagnoses Diagnosis Prostate cancer (HCC) Malignant neoplasm of prostate documented in this encounter Orders Appointment Requests Count Last Ordered Date Fi rst Ordered Date ONCBCN LAB APPOINTMENT 1 05/30/2019 documented in this encounter Care Teams Material Scheduler Relationship Specialty Start Date End Date Kraig Ching MD [address] [place] [address] [address] [place] [address] PCP - General 07/10/16 Gautam Cope MD [address] [facility] [address] [place] [address] Medical Oncologist/Film Printer Medical Oncology 08/18/18 Tramaine oRe MD [address] [facility] [address] [place] [address] Referring Physician Urology 08/18/18 Sukhwinder Uribe MD [address] [facility] [address] [place] [address] Consulting Physician Urology 08/18/18 Shay Guillermo MD [address] [facility] [address] [place] [address] Referring Physician Urology 08/18/18 Marsha Landis, RN Registered Nurse 11/17/18 Ilene Fragoso, SHEA [address] [facility] [address] [place] [address] Computer Technology Instructor 12/23/18 11/01/19 documented as of this encounter
--- OUTSIDE RECORDS SUMMARY | 2024-03-31 11:33 | XMS_ITS | Encounter Summary ---
Author Organization [facility] Address [address] [place] [address] Phone Care Team Providers Care General Manager Name Role Phone Kraig Ching MD Primary Care Provider [phone] Gautam Cope MD Unavailable Tramaine Roe MD Unavailable [phone] Sukhwinder Uribe MD Unavailable [phone] Shay Guillermo MD Unavailable [phone] Marsha Landis RN Unavailable Unavailab Ilene Kaur RN Unavailable [phone] Reason for Referral * Diagnostic Imaging (Routine) - Closed Specialty Diagnoses / Procedures Referred By Contac t Referred To Contact Diagnoses Prostate cancer (HCC) Procedures NM bone scan whole body Gautam Cope MD [address] [facility] [address] [place] [address] Phone: tel: fax: [address] [address] Referral ID Status Reason Start Date Expiration Date Visits Re quested Visits Authorized [id number] Closed 05/31/2019 12/09/2020 2 2 RANCE LOSS ADJUSTER Encounter Details Date Type Department Care Team (Late st Contact Info) Description 05/31/2019 Orders Only [facility] Oncology [address] [facility] 7th [place] [address] [place] [address] Muna Saleem RN Prostate cancer ([facility]/HCC) (Primary Dx) Social History Tobacco Use [...] file Legal Sex Male 4:46 PM 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 Electronically signed by: Sandra Davial M.D. Narrative 08/15/2019 2:38 PM CDT EXAMINATION: [...] by: Sandra Davila M.D. Gautam Cope MD [facility] Final Result documented in this encounter Visit Diagnoses Diagnosis Prostate cancer (HCC)- Primary Malignant neoplasm of prostate Prostate cancer (HCC) Malignant neoplasm of prostate documented in this encounter Care Teams General Manager Relationship Specialty Start Date End Date Kraig Ching MD [address] [address] PCP - General 07/10/16 Gautam Cope MD [address] [facility] [address] [place] [address] Medical Oncologist/Biztalk Software Developer Medical Oncology 08/18/18 Tramaine Roe MD [address] [facility] [address] [place] [address] Referring Physician Urology 08/18/18 Sukhwinder Uribe MD [address] [facility] [address] [place] [address] Consulting Physician Urology 08/18/18 Shay Guillermo MD [address] [facility] [address] [place] [address] Referring Physician Urology 08/18/18 Marsha Landis, RN Registered Nurse 11/17/18 Ilene Fragoso, RN [address] [place] [address] [address] [place], [place] [id number] Egg Buyer 12/23/18 11/01/19 documented as of this encounter
--- OUTSIDE RECORDS SUMMARY | 2024-03-31 11:33 | XMS_ITS | Encounter Summary ---
Author Organization [facility] Address [address] [place] [address] Phone Care Team Providers Care Food Service Specialist Name Role Phone Kraig Ching MD Primary Care Provider [phone] Gautam Cope MD Unavailable Tramaine Roe MD Unavailable [phone] Sukhwinder Uribe MD Unavailable [phone] Shay Guillermo MD Unavailable [phone] Marsha Landis RN Unavailable Unavailab Ilene Kaur RN Unavailable [phone] Encounter Details Date Type Department Care Team (Late st Contact Info) Description 06/02/2019 Orders Only [facility] Oncology [address] [facility] 7th [place] [address] [place] [address] Muna Saleem RN Social History [...] on file 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 Gender Identity Not on file [...] Chronic Care Management No change(03/23 1:47 PM ELECTRIC FURNACE OPERATOR) No Ingrid Oden, SHEA Note: Problem: [...] as of this encounter Care Teams Food Service Specialist Relationship Specialty Start Date End Date Kraig Ching MD [address] [place] [address] PCP - General 07/10/16 Gautam Cope MD [address] [place] [address] Medical Oncologist/Utility Plant Operative Medical Oncology 08/18/18 Tramaine Roe MD [address] [place] [address] Referring Physician Urology 08/18/18 Sukhwinder Uribe MD [address] [place] [address] Consulting Physician Urology 08/18/18 Sahy Guillermo MD [address] [place] [address] Referring Physician Urology 08/18/18 Marsha Landis, RN Registered Nurse 11/17/18 Ilene Fragoso, SHEA [address] [facility] [address] [place] [address] Paster Hat Lining 12/23/18 11/01/19 documented as of this encounter
--- OUTSIDE RECORDS SUMMARY | 2024-03-31 11:33 | XMS_ITS | Encounter Summary ---
Author Organization [facility] Address [address] [place] [address] Phone Care Team Providers Care Ostomy Nurse Name Role Phone Kraig Ching MD Primary Care Provider [phone] Gautam Cope MD Unavailable Tramaine Roe MD Unavailable [phone] Sukhwinder Uribe MD Unavailable Shay Guillermo MD Unavailable [phone] Marsha Landis RN Unavailable Unavailab Ilene Kaur RN Unavailable [phone] Encounter Details Date Type Department Care Team (Late st Contact Info) Description 08/28/2019 Orders Only [facility] Nephrology [address] [facility] [address] 5th [place] [address] [place] [address] Lin Guerrero MD [facility] [facility] [address] [place], [place] [id number] Essential hypertension (Primary Dx); Stage 3 chronic [...] on file Legal Sex Male 4:46 PM SPRAYER HAND Gender Identity Not on file Sexual [...] to monitor diabetes and kidney status, etc. [facility] Chronic Pain Care Plan Chronic Care Management No change(03/23 1:47 PM SPRAYER HAND) No Ingrid Oden, SHEA Note: Problem: [...] ?[address] ?[place] [address] 09/04/2020 3:28 PM CDT 09/04/2020 3:30 PM CDT Narrative [facility] - 09/05/2020 12:26 PM CDT FASTING:NO FASTING: NO us Lin Guerrero MD LAB BLOOD ORDERABLES Final Resul t [facility] * COPY(IES) SENT TO: (09/04/2020 3:28 PM CDT) COPY(IES) SENT TO: [facility] Comment: ?[facility] ?[address] ?[place] [address] 09/04/2020 3:28 PM CDT 09/04/2020 3:30 PM CDT Narrative [facility] - 09/05/2020 12:19 PM CDT FASTING:NO FASTING: NO Lin Guerrero MD LAB BLOOD ORDERABLES Final Resul t Performing Organization Address [facility] Co de Phone Number [facility] * PTH (09/04/2020 3:28 PM CDT) Parathyroid hormone, intact 40 14 - 64 pg/mL [facility] Comment: Interpretive Guide ?Intact PTH ? [...] Final Resul t Performing Organization Address [facility]/ZIP Co de Phone Number [facility] [address] [address] * (ABNORMAL) Urinalysis reflex to microscopic (09/04/2020 3:28 PM CDT) Color, ur YELLOW YELLOW [facility] Appearance, ur CLEAR CLEAR [facility] Specific gravity 1.016 1.001 - 1.035 [facility] pH, ur 6.0 5.0 - 8.0 [facility] Glucose, ur 1+(A) NEGATIVE [facility] Bilirubin, ur NEGATIVE NEGATIVE [facility] Ketones, ur NEGATIVE NEGATIVE [facility] Blood, ur NEGATIVE NEGATIVE [facility] Protein, ur, quant NEGATIVE NEGATIVE [facility] Nitrites, ur NEGATIVE NEGATIVE [facility] Leukocyte esterase, ur 1+(A) NEGATIVE [facility] WBC, ur 20-40(A) < OR = 5 /HPF [facility] RBC, ur NONE SEEN < OR = 2 /HPF [facility] Epithelial cells, squamous, ur NONE SEEN < OR = 5 /HPF [facility] Epithelial cells, transitional CANCELED < OR = 5 /HPF [facility] Comment:Result canceled by t he ancillary. Epithelial cells, renal, ur CANCELED < OR = 3 /HPF [facility] Comment:Result canceled by t he ancillary. Bacteria, ur, quant NONE SEEN NONE SEEN /HPF [facility] Calcium oxalate crystals, ur CANCELED NONE OR FEW /HPF [facility] Comment:Result canceled by t he ancillary. Triple phosphate crystals, ur CANCELED NONE OR FEW /HPF [facility] Comment:Result canceled by t he ancillary. Uric acid crystals, ur CANCELED NONE OR FEW /HPF [facility] Comment:Result canceled by t he ancillary. Amorphous crystals, ur CANCELED NONE OR FEW /HPF [facility] Comment:Result canceled by t he ancillary. Crystals, ur CANCELED NONE SEEN /HPF [facility] Comment:Result canceled by t he ancillary. Hyaline cast NONE SEEN NONE SEEN /LPF [facility] Granular casts, ur CANCELED NONE SEEN /LPF [facility] Comment:Result canceled by t he ancillary. Casts CANCELED NONE SEEN /LPF [facility] Comment:Result canceled by t he ancillary. Yeast, ur CANCELED NONE SEEN /HPF [facility] Comment:Result canceled by t he ancillary. Comments CANCELED [facility] Comment:Result canceled by t he ancillary. Note CANCELED [facility] Comment:Result canceled by t he ancillary. Urine 09/04/2020 3:28 PM CDT 09/04/2020 3:30 PM CDT Narrative [facility] - 09/05/2020 12:26 PM CDT FASTING:NO FASTING: NO us Lin Guerrero MD LAB URINE ORDERABLES Final Resul t [facility] [address] [place] [address] * (ABNORMAL) CBC with auto differential (09/04/2020 [...] LAB BLOOD ORDERABLES Final Resul t [facility] [address] [address] * (ABNORMAL) Vitamin D 25 hydroxy (09/04/2020 3:28 PM CDT) Pathologist [facility] Vitamin D 25-OH 19(L) 30 - 100 ng/mL [facility] Comment: Vitamin D Status ? 25-OH Vitamin D: Deficiency: ?<20 ng/mL Insufficiency: ? 20 - 29 ng/mL Optimal: ? > or = 30 ng/mL For 25-OH Vitamin D testing on patients on D2-supplementation and patients for whom quantitation of D2 and D3 fractions is required, the Quest[facility]ureD(TM) 25-OH VIT D, (D2,D3), LC/MS/MS is recommended: order code 80391 (patients >2yrs). See Note 1 Note 1 For additional information, please refer to http://education.IssueNation/faq/CIF123 (This link is being provided for informational/ educational purposes only.) Blood specimen (specimen) 09/04/2020 3:28 PM CDT 09/04/2020 3:30 PM CDT Narrative [facility] - 09/05/2020 12:26 PM CDT FASTING:NO FASTING: NO us Lin Guerrero MD LAB BLOOD ORDERABLES Final Resul t [facility] [address] [place] [address] * (ABNORMAL) Renal function panel (09/04/2020 3:28 PM CDT) Glucose 295(H) 65 - 139 mg/dL [facility] Comment: ? Non-fasting reference interval BUN 51(H) 7 - 25 mg/dL [facility] Creatinine 2.87(H) 0.70 - 1.18 mg/dL [facility] Comment: For patients >49 years of age, the reference limit for Creatinine is approximately 13% higher for people identified as -Dutch. eGFR NON-AFR. ESTONIAN 20(L) > OR = 60 mL/min/1. 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 Screening for hematuria or proteinuria Screening for unspecified condition documented in this encounter Care Teams Ostomy Nurse Relationship Specialty Start Date End Date Kraig Ching MD [address] [facility] [address] [place] [address] PCP - General 07/10/16 Gautam Cope MD [address] [facility] [address] [place] [address] Medical Oncologist/Central Office Operator Supervisor Medical Oncology 08/18/18 Tramaine Roe MD [address] [facility] [address] [place] [address] Referring Physician Urology 08/18/18 Sukhwinder Uribe MD [address] [facility] [address] [place] [address] Consulting Physician Urology 08/18/18 Shay Guillermo MD [address] [facility] [address] [place] [address] Referring Physician Urology 08/18/18 Marsha Landis, RN Registered Nurse 11/17/18 Ilene Fragoso, SHEA [address] [facility] [address] [place] [address] [employer] 12/23/18 11/01/19 documented as of this encounter
--- OUTSIDE RECORDS SUMMARY | 2024-03-31 11:33 | XMS_ITS | Encounter Summary ---
Author Organization [facility] Healthcare Address [address] [place] [address] Care Team Providers Care Laboratory Technologist Name Role Phone Kraig Ching MD Primary Care Provider [phone] Gautam Cope MD Unavailable Tramaine Roe MD Unavailable [phone] Sukhwinder Uribe MD Unavailable [phone] Shay Guillermo MD Unavailable [phone] Marsha Landis RN Unavailable Unavailab Ilene Kaur RN Unavailable [phone] Reason for Referral * Diagnostic Imaging (Routine) - Closed Specialty Diagnoses / Procedures Referred By Saleem narvaez Referred To Contact Diagnoses Prostate cancer (HCC) Procedures NM bone scan whole body Gautam Cope MD [address] [facility] [address] [place] [address] Phone: tel: fax: [facility] [address] [place] [address] Referral ID Status Reason Start Date Expiration Date Visits Re quested Visits Authorized [id number] Closed 05/31/2019 12/09/2020 2 2 Reason for Visit * Diagnostic Imaging (Routine) - Closed Specialty Diagnoses / Procedures Referred By Saleem narvaez Referred To Contact Diagnoses Prostate cancer (HCC) Procedures NM bone scan whole body Gautam Cope MD [address] [facility] [address] [place] [address] Phone: tel: fax: [facility] [address] 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 Gender Identity Not on file Sexual [...] long-term current use of insulin ([facility]) INJECT 10 UNITS UNDER THE SKIN DAILY [...] long-term current use of insulin ([facility]) TAKE 1 TABLET BY MOUTH DAILY 30 [...] Chronic Care Management No change(03/23 1:47 PM COLD MILL SUPERVISOR) No Ingrid Oden RN Note: Problem: [...] millicuries documented in this encounter Care Teams Laboratory Technologist Relationship Specialty Start Date End Date Kraig Ching MD [address] [place] [address] PCP - General 07/10/16 Gautam Cope MD [address] [facility] [address] [place] [address] Medical Oncologist/State Game Warden Medical Oncology 08/18/18 Tramaine Roe MD [address] [facility] [address] [place] [address] Referring Physician Urology 08/18/18 Sukhwinder Uribe MD [address] [facility] [address] [place] [address] Consulting Physician Urology 08/18/18 Shay Guillermo MD [address] [facility] [address] [place] [address] Referring Physician Urology 08/18/18 Marsha Landis, RN Registered Nurse 11/17/18 Ilene Fragoso, RN [address] [facility] [address] [place] [address] Superintendent Distribution 12/23/18 11/01/19 documented as of this encounter
--- OUTSIDE RECORDS SUMMARY | 2024-03-31 11:33 | XMS_ITS | Encounter Summary ---
Author Organization [facility] [place] Address [address] [place] [address] Phone Care Team Providers Care Security Officer Supervisor Name Role Phone Kraig Ching MD Primary Care Provider [phone] Gautam Cope MD Unavailable Tramaine Roe MD Unavailable [phone] Sukhwinder Uribe MD Unavailable [phone] Shay Guillermo MD Unavailable [phone] Marsha Landis RN Unavailable Unavailab Ilene Kaur RN Unavailable [phone] Reason for Visit * Episode Based Medications (Routine) - Authorized Specialty Diagnoses / Procedures Referred By Contac t Referred To Contact Oncology Diagnoses Prostate cancer (HCC) Procedures LA LEUPROLIDE ACETATE SUSPNSION Leuprolide Every 3 Months - Prostate Gautam Cope MD [address] [facility] [address] [place] [address] Phone: tel: fax: [facility] - Infusion [address] [facility] Floor 5 [place] [address] Referral ID Status Reason Start Date Expiration Date V isits Requested Visits Authorized [id number] Authorized 09/06/2018 07/11/2024 1 50 Encounter Details Date Type Department Care Team (Late st Contact Info) Description 08/22/2019 10:15 AM CDT Lab [facility] Oncology [address] [facility] 7th [place] [address] [place] [address] Prostate cancer ([facility]) Social History Tobacco [...] on file Legal Sex Male 4:46 PM HOP TRAINER Gender Identity Not on file Sexual Orientation [...] to monitor diabetes and kidney status, etc. [facility] Chronic Pain Care Plan Chronic Care Management No change(03/23 1:47 PM HOP TRAINER) No Ingrid Oden RN Note: Problem: Chronic [...] Routine 08/22/2019 10:10 AM CDT Prostate cancer ([facility]) DIFFERENTIAL AUTO Routine 08/22/2019 10: 08 AM CDT Prostate cancer ([facility]) CBC WITH AUTO DIFFERENTIAL Routine 08/22/2019 10:08 AM CDT Prostate cancer ([facility]) VITAMIN D 25 HYDROXY Routine 08/22/2019 10:08 AM CDT Prostate cancer ([facility]) PSA DIAGNOSTIC Routine 08/22/2019 10:08 AM CDT Prostate cancer ([facility]) LACTATE DEHYDROGENASE Routine 08/22/2019 10:08 AM CDT Prostate cancer ([facility]) COMPREHENSIVE METABOLIC PANEL Routine 08/22/2019 10:08 AM CDT Prostate cancer ([facility]) documented in this encounter Results * (ABNORMAL) Hemoglobin A1c (08/22/2019 10:10 AM CDT) Hgb A1C 11.0(H) 4.0 - 5.6 % [facility] Estimated Average Glucose 269 mg/dL [facility] Comment: The ADA recommends reporting an estimated Average Glucose (eAG) with all Hemoglobin A1c results using the equation derived from a study of 507 normal and diabetic adults. ??Minority populations were underrepresented and children were not included. ?? (Diabetes Care 31:5068-2950, 2008). ??The eAG is not equivalent to a fasting glucose. Blood specimen (specimen) 08/22/2019 10:10 AM CDT 08/22/2019 10:13 AM CDT us Gautam Cope MD LAB BLOOD ORDERABLES Final Resul t [facility] One [facility] Department [place] [address] * (ABNORMAL) Differential, auto (08/22/2019 10:08 AM CDT) [facility] Neutrophil abs 8.3(H) 1.8 - 6.6 K/cumm [facility] Comment:Testing performed by : [facility], [address] [place] [phone] Lymphocyte abs 1.9 1.2 - 3.3 K/cumm [facility] Comment:Testing performed by : [facility], [address] [place] [phone] Monocyte abs 0.9 0.2 - 1.2 K/cumm [facility] Comment:Testing performed by : [facility], [address] [place] [phone] Eosinophil abs 0.1 0.0 - 0.5 K/cumm [facility] Comment:Testing performed by : [facility], [address] [place] [phone] Basophil abs 0.1 0.0 - 0.2 K/cumm [facility] Comment:Testing performed by : [facility], [address] [place] [phone] Neutrophil pct 73.5 % [facility] Comment: Interpretive Data Percent cell count reference ranges are not reported, since discordance with absolute values may lead to misinterpretation of CBC data. Current Interpretive Data was last revised on 2017. Testing performed by: [facility], [address] [place] [phone] Lymphocyte pct 16.6 % [facility] Comment: Interpretive Data Percent cell count reference ranges are not reported, since discordance with absolute values may lead to misinterpretation of CBC data. Current Interpretive Data was last revised on 2017. Testing performed by: [facility], [address] [place] [phone] Monocyte pct 8.0 % [facility] Comment:Testing performed by : [facility], [address] [place] [phone] Eosinophil pct 1.2 % [facility] Comment:Testing performed by : [facility], [address] [place] [phone] Basophil pct 0.7 % [facility] Comment:Testing performed by : [facility], [address] [place] [phone] Blood specimen (specimen) 08/22/2019 10:08 AM CDT 08/22/2019 10:08 AM CDT Gautam Cope MD LAB BLOOD ORDERABLES Final Resul t Performing Organization Address City/[facility]/ZIP Co de Phone Number [facility] [place] [address] * (ABNORMAL) Vitamin D 25 hydroxy (08/22/2019 10:08 AM CDT) Vitamin D 25-OH 29(L) 30 - 80 ng/mL [facility] Blood specimen (specimen) 08/22/2019 10:08 AM CDT 08/22/2019 10:31 AM CDT us Gautam Cope MD LAB BLOOD ORDERABLES Edited Resu lt - Final [facility] Department [place] [address] * Lactate dehydrogenase (LD) (08/22/2019 10:08 AM CDT) Pathologist [facility] Lactate dehydrogenase (LDH) 163 100 - 250 Units/L [facility] Comment:Testing performed by : [facility], [address] [place] [phone] Blood specimen (specimen) 08/22/2019 10:08 AM CDT 08/22/2019 10:08 AM CDT us Gautam Cope MD LAB BLOOD ORDERABLES Final Resul t [facility] One [facility] Department [place] [address] * (ABNORMAL) CBC with auto differential (08/22/2019 10:08 AM CDT) Pathologist [facility] WBC 11.3(H) 3.8 - 9.8 K/cumm [facility] Comment:Testing performed by : [facility], [address] [place] [phone] Hgb 12.3(L) 13.8 - 17.2 g/dL [facility] Comment:Testing performed by : [facility], [address] [place] [phone] Hct 37.1(L) 40.7 - 50.3 % [facility] Comment:Testing performed by : [facility], [address] [place] [phone] Plt 398 140 - 440 K/cumm [facility] Comment:Testing performed by : [facility], [address] [place] [phone] MPV 7.2 6.8 - 10.4 fL [facility] Comment:Testing performed by : [address] [phone] RBC 4.16(L) 4.50 - 5.70 M/cumm [facility] Comment:Testing performed by : [address] [phone] MCV 89.1 80.0 - 97.6 fL [facility] Comment:Testing performed by : [facility], [address] [place] [phone] MCH 29.6 26.7 - 33.7 pg [facility] Comment:Testing performed by : [facility], [address] [place] [phone] MCHC 33.2 32.7 - 35.5 g/dL [facility] Comment:Testing performed by : [facility], [address] [place] [phone] RDW CV 14.0 11.8 - 14.6 % [facility] Comment:Testing performed by : [facility], [address] [place] [phone] NRBC abs 0.00 0.00 - 0.01 K/cumm [facility] Comment:Testing performed by : [facility], [address] [place] [phone] Blood specimen (specimen) 08/22/2019 10:08 AM CDT 08/22/2019 10:08 AM CDT us Gautam Cope MD LAB BLOOD ORDERABLES Final Resul t [facility] One [facility] Department [place] [address] * (ABNORMAL) Comprehensive metabolic panel (08/22/2019 10:08 AM CDT) Sodium 139 135 - 145 mmol/L [facility] Comment:Testing performed by : [facility], [address] [place] [phone] Potassium, pl 4.7 3.3 - 4.9 mmol/L [facility] Comment:Testing performed by : [facility], [address] [place] [phone] Chloride 99 97 - 110 mmol/L [facility] Comment:Testing performed by : [facility], [address] [place] [phone] CO2 30 22 - 32 mmol/L [facility] Comment:Testing performed by : [facility], [address] [place] [phone] Anion gap 10 2 - 15 mmol/L [facility] Comment:Testing performed by : [facility], [address] [place] [phone] BUN 38(H) 8 - 25 mg/dL [facility] Comment:Testing performed by : [facility], [address] [place] [address] Creatinine 1.81(H) 0.80 - 1.30 mg/dL [facility] Comment:Testing performed by : [facility], [address] [place] [phone] Glucose 229(H) 70 - 199 mg/dL [facility] [...] was last revised 2017. Testing performed by: [facility], [address] [place] [phone] Calcium 9.3 8.5 - 10.3 mg/dL [facility] Comment:Testing performed by : [facility], [address] [place] [phone] Bilirubin, total 0.4 0.1 - 1.2 mg/dL [facility] Comment:Testing performed by : [facility], [address] [place] [phone] Protein, pl 6.8 6.5 - 8.5 g/dL [facility] Comment:Testing performed by : [facility], [address] [place] [phone] Albumin 4.2 3.5 - 5.0 g/dL [facility] Comment:Testing performed by : [address] [phone] Alk phos 111 40 - 130 Units/L [facility] Comment:Testing performed by : [facility], [address] [facility] [phone] ALT 17 7 - 55 Units/L [facility] Comment:Testing performed by : [facility], [facility] [address] AST 13 10 - 50 Units/L [facility] Comment:Testing performed by : [facility], [address] [place] [phone] Blood specimen (specimen) 08/22/2019 10:08 AM CDT 08/22/2019 10:08 AM CDT us Gautam Cope MD LAB BLOOD ORDERABLES Final Resul t Performing Organization Address City/State/[facility] Co de Phone Number [facility] One [facility] [place] [address] * PSA diagnostic (08/22/2019 10:08 AM CDT) PSA-Total <0.10 <=6.20 ng/mL [facility] [...] ORDERABLES Final Resul t [facility] [place] [address] documented in this encounter Visit Diagnoses Diagnosis Prostate cancer (HCC) Malignant neoplasm of prostate documented in this encounter Orders Appointment Requests Count Last Ordered Date Fi rst Ordered Date ONCBCN LAB APPOINTMENT 1 08/22/2019 documented in this encounter Care Teams Security Officer Supervisor Relationship Specialty Start Date End Date Kraig Ching MD [address] [place] [address] PCP - General 07/10/16 Gautam Cope MD [address] [place] [address] Medical Oncologist/Housing Assistant Medical Oncology 08/18/18 Tramaine Roe MD [address] [place] [address] Referring Physician Urology 08/18/18 Sukhwinder Uribe MD [address] [place] [address] Consulting Physician Urology 08/18/18 Shay Guillermo MD [address] [place] [address] Referring Physician Urology 08/18/18 Marsha Landis, RN Registered Nurse 11/17/18 Ilene Fragoso, SHEA [address] [facility] [address] [place] [address] Inspector Watch Parts 12/23/18 11/01/19 documented as of this encounter
--- OUTSIDE RECORDS SUMMARY | 2024-03-31 11:33 | XMS_ITS | Encounter Summary ---
Author Organization [facility] Address [address] [place] [address] Phone Care Team Providers Care Baseboard Heating Installer Name Role Phone Kraig Ching MD Primary Care Provider [phone] Gautam Cope MD Unavailable Tramaine Roe MD Unavailable [phone] Sukhwinder Uribe MD Unavailable [phone] Shay Guillermo MD Unavailable [phone] Marsha Landis RN Unavailable Unavailab Ilene Kaur RN Unavailable [phone] Reason for Visit * Episode Based Medications (Routine) - Authorized Specialty Diagnoses / Procedures Referred By Contac t Referred To Contact Oncology Diagnoses Prostate cancer (HCC) Procedures HI LEUPROLIDE ACETATE SUSPNSION Leuprolide Every 3 Months - Prostate Gautam Cope MD [address] [facility] [address] [place] [address] Phone: tel: fax: [facility] - Infusion [address] [facility] Floor 5 [place] [address] Referral ID Status Reason Start Date Expiration Date V isits Requested Visits Authorized [id number] Authorized 09/06/2018 07/11/2024 1 50 Encounter Details Date Type Department Care Team (Late st Contact Info) Description 08/22/2019 11:15 AM CDT Office Visit [facility] Oncology [address] [facility] 7th [place] [address] [place] [address] Gautam Cope MD [address] [facility] [address] [place] [address] Prostate cancer (CMS/HCC) Social History [...] file Legal Sex Male 4:46 PM MANAGER RETAIL Gender Identity Not on file Sexual Orientation [...] Body Mass Index 31.29 05/22/2019 11:51 AM MANAGER RETAIL documented in this encounter Progress Notes * Gautam Cope MD - 08/22/2019 12:00 AM CDT PATIENT NAME: DAVID DREW : 1940 [place]: 08/22/2019 Mr. Drew is a 78-year-old with metastatic prostate cancer. His diagnosis originally dates backto April 1999. At that time, he had a PSA of 5.5, and a biopsy was performed showing Townsend 3+4 disease. In June. He underwent a [...] - 08/22/2019 05:10 PM Gautam Cope M.D. cardiac technician GLORIA/lul documented in this encounter Plan of [...] Care Management No change(03/23 1:47 PM MANAGER RETAIL) Ingrid Mcdaniels, SHEA Note: Problem: Chronic Pain [...] 020 documented in this encounter Care Teams Baseboard Heating Installer Relationship Specialty Start Date End Date Kraig Ching MD [address] [place] [address] PCP - General 07/10/16 Gautam Cope MD [address] [place] [address] Medical Oncologist/Wool Classer Medical Oncology 08/18/18 Tramaine Roe MD [address] [place] [address] Referring Physician Urology 08/18/18 Sukhwinder Uribe MD [address] [place] [address] Consulting Physician Urology 08/18/18 Shay Guillermo MD [address] [place] [address] Referring Physician Urology 08/18/18 Marsha Landis, RN Registered Nurse 11/17/18 Ilene Fragoso, SHEA [address] [facility] [address] [place], [place] [address] Api Developer 12/23/18 11/01/19 documented as of this encounter
--- OUTSIDE RECORDS SUMMARY | 2024-03-31 11:33 | XMS_ITS | Encounter Summary ---
Author Organization [facility] Address [address] [place] [address] Phone Care Team Providers Care Straw Hat Presser Name Role Phone Kraig Ching MD Primary Care Provider [phone] Gautam Cope MD Unavailable Tramaine Roe MD Unavailable [phone] Sukhwinder Uribe MD Unavailable [phone] Shay Guillermo MD Unavailable [phone] Marsha Landis RN Unavailable Unavailab Ilene Kaur RN Unavailable [phone] Encounter Details Date Type Department Care Team (Late st Contact Info) Description 08/21/2019 Orders Only [facility] Oncology [address] [facility] 7th [place] [address] [place] [address] Muna Saleem RN Prostate cancer [...] file Legal Sex Male 4:46 PM DIAMOND CUTTER Gender Identity Not on file Sexual [...] Chronic Care Management No change(03/23 1:47 PM DIAMOND CUTTER) No Ingrid Oden, SHEA Note: Problem: [...] Hgb A1C 11.0(H) 4.0 - 5.6 % [facility] Estimated Average Glucose 269 mg/dL [facility] Comment: The ADA recommends reporting an estimated Average Glucose (eAG) with all Hemoglobin A1c results using the equation derived from a study of 507 normal and diabetic adults. ??Minority populations were underrepresented and children were not included. ?? (Diabetes Care 31:5160-6879, 2007). ??The eAG is not equivalent to a fasting glucose. Blood specimen (specimen) 08/22/2019 10:10 AM CDT 08/22/2019 10:13 AM CDT us Gautam Cope MD LAB BLOOD ORDERABLES Final Resul t [facility] [place] [address] * (ABNORMAL) Vitamin D 25 hydroxy (08/22/2019 10:08 AM CDT) Vitamin D 25-OH 29(L) 30 - 80 ng/mL [facility] Blood specimen (specimen) 08/22/2019 10:08 AM CDT 08/22/2019 10:31 AM CDT us Gautam Cope MD LAB BLOOD ORDERABLES Edited Resu lt - Final [facility] [place] [address] documented in this encounter Visit Diagnoses Diagnosis Prostate cancer (HCC)- Primary Malignant neoplasm of prostate documented in this encounter Care Teams Straw Hat Presser Relationship Specialty Start Date End Date Kraig Ching MD [address] [place] [address] PCP - General 07/10/16 Gautam Cope MD [address] [place] [address] Medical Oncologist/Medical Manager Medical Oncology 08/18/18 Tramaine Roe MD [address] [place] [address] Referring Physician Urology 08/18/18 Sukhwinder Uribe MD [address] [place] [address] Consulting Physician Urology 08/18/18 Shay Guillermo MD [address] [place] [address] Referring Physician Urology 08/18/18 Marsha Landis, RN Registered Nurse 11/17/18 Ilene Fragoso, RN [address] [facility] [address] [place] [address] Student Accounts Coordinator 12/23/18 11/01/19 documented as of this encounter
--- OUTSIDE RECORDS SUMMARY | 2024-03-31 11:33 | XMS_ITS | Encounter Summary ---
Author Organization [facility] Address [address] [place] [address] Phone Care Team Providers Care Jewelry Coater Name Role Phone Kraig Ching MD Primary Care Provider [phone] Gautam Cope MD Unavailable Tramaine Roe MD Unavailable [phone] Sukhwinder Uribe MD Unavailable Shay Guillermo MD Unavailable [phone] Marsha Landis RN Unavailable Unavailab Ilene Kaur RN Unavailable [phone] Reason for Visit * Episode Based Medications (Routine) - Authorized Specialty Diagnoses / Procedures Referred By Contac t Referred To Contact Oncology Diagnoses Prostate cancer (HCC) Procedures AK LEUPROLIDE ACETATE SUSPNSION Leuprolide Every 3 Months - Prostate Gautam Cope MD [address] [facility] [address] [place] [address] Phone: tel: fax: [facility] - Infusion [address] [facility] Floor 5 [place] [address] Referral ID Status Reason Start Date Expiration Date V isits Requested Visits Authorized [id number] Authorized 09/06/2018 07/11/2024 1 50 Encounter Details Date Type Department Care Team (Late st Contact Info) Description 05/30/2019 12:30 PM INSULATION BOARD COATER OPERATOR Infusion [facility] Oncology [address] [facility] 7th [place] [address] Prostate cancer (CMS/HCC) (Primary Dx) Social History [...] file Legal Sex Male 4:46 PM INSULATION BOARD COATER OPERATOR Gender Identity Not on file Sexual Orientation Not on file documented as of this encounter Nursing Notes * Kayley Worley RN - 05/30/2019 12:30 PM CST Pt tolerated injection to L buttock well. Next appts given. Discharged in stable condition. LATION BOARD COATER OPERATOR documented in this encounter Plan of [...] Care Management No change(03/23 1:47 PM INSULATION BOARD COATER OPERATOR) No Ingrid Oden, SHEA Note: Problem: [...] doseIndications:Prostate cancer (HCC) Given 05/30/2019 12:09 PM INSULATION BOARD COATER OPERATOR 22.5 mg Left Dorsogluteal/Butt ock documented in this encounter Orders Nursing Count Last Ordered Date First Orde red Date ONCBCN TREATMENT PARAMETERS 2 1 05/30/2019 Appointment Requests Count Last Ordered Date Fi rst Ordered Date ONCBCN INJECTION APPOINTMENT REQUEST 1 05/13 documented in this encounter Care Teams Jewelry Coater Relationship Specialty Start Date End Date Kraig Ching MD [address] [facility] [address] [place] [address] PCP - General 07/10/16 Gautam Cope MD [address] [facility] [address] [place] [address] Medical Oncologist/Machine Sorter Medical Oncology 08/18/18 Tramaine Roe MD [address] [facility] [address] [place] [address] Referring Physician Urology 08/18/18 Sukhwinder Uribe MD [address] [facility] [address] [place] [address] Consulting Physician Urology 08/18/18 Shay Guillermo MD [address] [facility] [address] [place] [address] Referring Physician Urology 08/18/18 Marsha Landis, RN Registered Nurse 11/17/18 Ilene Fragoso, RN [address] [place] [address] [address] [place] [address] Chemical Tank Worker 12/23/18 11/01/19 documented as of this encounter
--- OUTSIDE RECORDS SUMMARY | 2024-03-31 11:33 | XMS_ITS | Encounter Summary ---
Author Organization [facility] Address [address] [place] [address] Phone Care Team Providers Care Electronic Plotting System Operator Name Role Phone Kraig Ching MD Primary Care Provider [phone] Gautam Cope MD Unavailable Tramaine Roe MD Unavailable [phone] Sukhwinder Uribe MD Unavailable [phone] Shay Guillermo MD Unavailable [phone] Marsha Landis RN Unavailable Unavailab Ilene Kaur RN Unavailable [phone] Reason for Referral * MRI/CAT/PET Scan (Routine) - Closed Specialty Diagnoses / Procedures Referred By Contac t Referred To Contact Radiology Diagnoses Prostate cancer (HCC) Procedures CT chest abdomen pelvis without contrast Gautam Cope MD [address] [facility] [address] [place] [address] Phone: tel: fax: [facility] [address] [place] [address] Referral ID Status Reason Start Date Expiration Date Visits Re quested Visits Authorized [id number] Closed 08/09/2019 02/17/2021 1 1 Encounter Details Date Type Department Care Team (Late st Contact Info) Description 08/09/2019 Telephone [facility] Oncology [address] [facility] 7th [address] [place] [id number] Comfort Foreman, GROCERY BUYER [address] [place] [address] Social History Tobacco Use Types Packs/Day Years [...] file Legal Sex Male 4:46 PM DYE RANGE TENDER Gender Identity Not on file Sexual Orientation Not on file documented as of this encounter Miscellaneous Notes * Telephone Encounter - Comfort Foreman RN - 08/09/2019 11:46 AM CDT I was alerted by my RN colleague that Mr. Wei called to confirm that his upcoming scan [...] to monitor diabetes and kidney status, etc. [facility] Chronic Pain Care Plan Chronic Care Management No change(03/23 1:47 PM DYE RANGE TENDER) No Ingrid Oden, RN Note: Problem: [...] prostate documented in this encounter Care Teams Electronic Plotting System Operator Relationship Specialty Start Date End Date Kraig Ching MD [address] [facility] [address] [place] [address] PCP - General 07/10/16 Gautam Cope MD [address] [facility] [address] [place] [address] Medical Oncologist/Financial Recording Clerk Medical Oncology 08/18/18 [place] [address] [place] [address] [place] [address] Referring Physician Urology 08/18/18 [place] [address] [place] [address] [address] [place] [address] Consulting Physician Urology 08/18/18 [place] [address] [place] [address] [place] [address] Referring Physician Urology 08/18/18 Marsha Landis, RN Registered Nurse 11/17/18 Ilene Fragoso RN [address] [facility] [address] [place] [address] Hoop Riveting Machine Operator Helper 12/23/18 11/01/19 documented as of this encounter
--- OUTSIDE RECORDS SUMMARY | 2024-03-31 11:33 | XMS_ITS | Encounter Summary ---
Author Organization [facility] Address [address] [place] [address] Phone Care Team Providers Care Senior Benefits Manager Name Role Phone Kraig Ching MD Primary Care Provider [phone] Gautam Cope MD Unavailable Tramaine Roe MD Unavailable [phone] Sukhwinder Uribe MD Unavailable [phone] Shay Guillermo MD Unavailable [phone] Marsha Landis RN Unavailable Unavailab Ilene Kaur RN Unavailable [phone] Encounter Details Date Type Department Care Team (Late st Contact Info) Description 06/02/2019 Documentation [facility] Oncology [address] [facility] Advanced Medicine 7th [place] [address] [place] [address] Muna Saleem RN Social History [...] file Legal Sex Male 4:46 PM MANAGEMENT TRAINER Gender Identity Not on file Sexual [...] pain for so long again--roughly 48 hours. GEMENT TRAINER documented in this encounter Plan of Treatment [...] Chronic Care Management No change(03/23 1:47 PM MANAGEMENT TRAINER) No Ingrid Oden, SHEA Note: Problem: Chronic Pain Goals: 1. Minimize further functional decline 2. Maximize quality of life 3. Control pain Strategies: - Activity/exercise program recommendation - Conservative stepwise pain medicine strategy with multi-disciplinary approach - Recommend healthy lifestyle strategies and compensatory methods as needed documented as of this encounter Visit Diagnoses Not on filedocumented in this encounter Care Teams Senior Benefits Manager Relationship Specialty Start Date End Date Kraig Ching MD [address] [facility] [address] [place] [address] PCP - General 07/10/16 Gautam Cope MD [address] [facility] [address] [place] [address] Medical Oncologist/Shell Assembler Medical Oncology 08/18/18 Tramaine Roe MD [address] [facility] [address] [place] [address] Referring Physician Urology 08/18/18 Sukhwinder Uribe MD [address] [facility] [address] [place] [address] Consulting Physician Urology 08/18/18 Shay Guillermo MD [address] [facility] [address] [place] [address] Referring Physician Urology 08/18/18 Marsha Landis RN Registered Nurse 11/17/18 Ilene Fragoso, RN [address] [facility] [address] [place] [address] Anatomy And Physiology Instructor 12/23/18 11/01/19 documented as of this encounter
--- OUTSIDE RECORDS SUMMARY | 2024-03-31 11:33 | XMS_ITS | Encounter Summary ---
Author Organization [facility] Address [address] [place] [address] Phone Care Team Providers Care Renal Technician Name Role Phone Kraig Ching MD Primary Care Provider [phone] Gautam Cope MD Unavailable Tramaine Roe MD Unavailable Sukhwinder Uribe MD Unavailable [phone] Shay Guillermo MD Unavailable [phone] Marsha Landis RN Unavailable Unavailab Ilene Kaur RN Unavailable [phone] Reason for Visit * Episode Based Medications (Routine) - Authorized Specialty Diagnoses / Procedures Referred By Contac t Referred To Contact Oncology Diagnoses Prostate cancer (HCC) Procedures RI LEUPROLIDE ACETATE SUSPNSION Leuprolide Every 3 Months - Prostate Gautam Cope MD [address] [facility] [address] [place] [address] Phone: tel: fax: [facility] - Infusion [address] [facility] [address] 5 [place] [address] Referral ID Status Reason Start Date Expiration Date V isits Requested Visits Authorized [id number] Authorized 09/06/2018 07/11/2024 1 50 Encounter Details Date Type Department Care Team (Late st Contact Info) Description 08/22/2019 12:15 PM CDT Infusion 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 Gender Identity Not on file Sexual [...] Chronic Care Management No change(03/23 1:47 PM LOGISTICS PLANNER) No Ingrid Oden, SHEA Note: Problem: [...] 08/10 documented in this encounter Care Teams Renal Technician Relationship Specialty Start Date End Date Kraig Ching MD [address] [facility] [address] [place] [address] PCP - General 07/10/16 Gautam Cope MD [address] [facility] [address] [place] [address] Medical Oncologist/Learning Program Manager Medical Oncology 08/18/18 Tramaine Roe MD [address] [facility] [address] [place] [address] Referring Physician Urology 08/18/18 Sukhwinder Uribe MD [address] [facility] [address] [place] [address] Consulting Physician Urology 08/18/18 Shay Guillermo MD [address] [facility] [address] [place] [address] Referring Physician Urology 08/18/18 Marsha Landis, RN Registered Nurse 11/17/18 Ilene Fragoso, SHEA [address] [facility] [address] [place] [address] Fire Alarm Repairer 12/23/18 11/01/19 documented as of this encounter
--- OUTSIDE RECORDS SUMMARY | 2024-03-31 11:34 | XMS_ITS | Encounter Summary ---
Author Organization [facility] Address [address] [place] [address] Phone Care Team Providers Care Matcher Leather [employer] Name Role Phone Kraig Ching MD Primary Care Provider [phone] Gautam Cope MD Unavailable Tramaine Roe MD Unavailable [phone] Sukhwinder Uribe MD Unavailable [phone] Shay Guillermo MD Unavailable [phone] Marsha Landis RN Unavailable Unavailab le Encounter Details Date Type Department Care Team (Late st Contact Info) Description 12/02/2018 Orders Only [facility] Oncology [address] [facility] Advanced Medicine 7th [place] [address] [place] [address] Muna Saleem RN Prostate cancer ([facility]) Social History Tobacco Use Types [...] file Legal Sex Male 4:46 PM INFORMATION ANALYST Gender Identity Not on file Sexual Orientation Not on file documented as of this encounter Plan of Treatment Not on file documented as of this encounter Goals Goal Patient Goal Type Associated Problems Recent Progress Patient-Stated? Author CCM Chronic Pain Care Plan Chronic Care Management No change(03/23 1:47 PM INFORMATION ANALYST) No Ingrid Oden, RN Note: Problem: Chronic Pain Goals: 1. Minimize further functional decline 2. Maximize quality of life 3. Control pain Strategies: - Activity/exercise program recommendation - Conservative stepwise pain medicine strategy with multi-disciplinary approach - Recommend healthy lifestyle strategies and compensatory methods as needed documented as of this encounter Results * (ABNORMAL) CBC with auto differential (03/07/2019 8:48 AM INFORMATION ANALYST) WBC 7.9 3.8 - 9.8 K/cumm [facility] Comment:Testing performed by : [facility], [address] [place] [phone] Hgb 12.1(L) 13.8 - 17.2 g/dL [facility] Comment:Testing performed by : [address] [address] Hct 36.7(L) 40.7 - 50.3 % [facility] Comment:Testing performed by : [facility], [address] [place] [phone] Plt 358 140 - 440 K/cumm [facility] Comment:Testing performed by : [address] [address] MPV 7.6 6.8 - 10.4 fL [facility] Comment:Testing performed by : [address] [address] RBC 3.99(L) 4.50 - 5.70 M/cumm [facility] Comment:Testing performed by : [address] [address] MCV 92.0 80.0 - 97.6 fL [facility] Comment:Testing performed by : [address] [address] MCH 30.4 26.7 - 33.7 pg [facility] Comment:Testing performed by : [address] [address] MCHC 33.1 32.7 - 35.5 g/dL [facility] Comment:Testing performed by : [facility], [address] [facility] [address] RDW CV 13.8 11.8 - 14.6 % MERLINE PER[facility]O Comment:Testing performed by : [facility], [address] [facility] [address] NRBC abs 0.00 0.00 - 0.01 K/cumm [facility] Comment:Testing performed by : [facility], [address] [place] [phone] Blood specimen (specimen) 03/07/2019 8:48 AM INFORMATION ANALYST 03/07/2019 8:49 AM INFORMATION ANALYST us Gautam Cope MD LAB BLOOD ORDERABLES Final Resul t [facility] Department [place] [address] * PSA diagnostic (03/07/2019 8:48 AM INFORMATION ANALYST) PSA-Total 0.20 <=6.20 ng/mL [facility] Comment: Interpretive Data ?AGE ? SEX ?REFERENCE INTERVAL 0 minutes-150 years ?Female ?None 0 minutes-49 years ? Male ?None ? 50-59 years ? Male ?0-3.90 ? 60-69 years ? Male ?0-5.40 ? 70-79 years ? Male ?0-6.20 ? 80-150 years ?Male ?0-6.20 Current interpretive data last revised 2017. Blood specimen (specimen) 03/07/2019 8:48 AM INFORMATION ANALYST 03/07/2019 8:55 AM INFORMATION ANALYST us Gautam Cope MD LAB BLOOD ORDERABLES Final Resul t [facility] Department [place] [address] * (ABNORMAL) Comprehensive metabolic panel (03/07/2019 8:48 AM INFORMATION ANALYST) Sodium 138 135 - 145 mmol/L [facility] Potassium, pl 4.2 3.3 - 4.9 mmol/L [facility] Chloride 102 97 - 110 mmol/L [facility] CO2 28 22 - 32 mmol/L [facility] Anion gap 8 2 - 15 mmol/L [facility] BUN 35(H) 8 - 25 mg/dL [facility] Creatinine 1.75(H) 0.80 - 1.30 mg/dL [facility] Glucose 229(H) 70 - 199 mg/dL [facility] Comment: Interpretive Data Fasting glucose [...] 2017. Calcium 9.5 8.5 - 10.3 mg/dL [facility] Bilirubin, total 0.3 0.1 - 1.2 mg/dL [facility] Protein, pl 6.7 6.5 - 8.5 g/dL [facility] Albumin 4.1 3.5 - 5.0 g/dL [facility] Alk phos 94 40 - 130 Units/L [facility] ALT 23 7 - 55 Units/L [facility] AST 21 10 - 50 Units/L [facility] Blood specimen (specimen) 03/07/2019 8:48 AM INFORMATION ANALYST 03/07/2019 8:55 AM INFORMATION ANALYST Gautam Cope MD LAB BLOOD ORDERABLES Final Resul t Performing Organization Address [facility] [place] Co de Phone Number [facility] [place] [address] * Lactate dehydrogenase (LD) (03/07/2019 8:48 AM INFORMATION ANALYST) Lactate dehydrogenase (LDH) 191 100 - 250 Units/L [facility] Blood specimen (specimen) 03/07/2019 8:48 AM INFORMATION ANALYST 03/07/2019 8:55 AM INFORMATION ANALYST Gautam Cope MD LAB BLOOD ORDERABLES Final Resul t Performing Organization Address [facility] [place] de Phone Number [facility] [place] [address] documented in this encounter Visit Diagnoses Diagnosis Prostate cancer (HCC) Malignant neoplasm of prostate documented in this encounter Orders Appointment Requests Count Last Ordered Date Fi rst Ordered Date ONCBCN CLINIC APPOINTMENT REQUEST 1 019 ONCBCN INJECTION APPOINTMENT REQUEST 1 02/11 ONCBCN LAB APPOINTMENT 1 03/07/2019 documented in this encounter Care Teams Matcher [employer]ather Parts Relationship Specialty Start Date End Date Kraig Ching MD [address] [place] [address] PCP - General 07/10/16 Gautam Cope MD [address] [place] [address] Medical Oncologist/Wire Inserter Medical Oncology 08/18/18 Tramaine Roe MD [address] [place] [address] Referring Physician Urology 08/18/18 Sukhwinder Uribe MD [address] [place] [address] Consulting Physician Urology 08/18/18 Shay Guillermo MD [address] [facility] [address] [place] [address] Referring Physician Urology 08/18/18 Marsha Landis RN Registered Nurse 11/17/18 documented as of this encounter
--- OUTSIDE RECORDS SUMMARY | 2024-03-31 11:34 | XMS_ITS | Encounter Summary ---
Author Organization [facility] Address [address] [place] [address] Phone Care Team Providers Care Brass Plater Name Role Phone Kraig Ching MD Primary Care Provider [phone] Gautam Cope MD Unavailable Tramaine Roe MD Unavailable [phone] Sukhwinder Uribe MD Unavailable [phone] Shay Guillermo MD Unavailable [phone] Marsha Landis RN Unavailable Unavailab le Reason for Visit * Episode Based Medications (Routine) - Authorized Specialty Diagnoses / Procedures Referred By Saleem t Referred To Contact Oncology Diagnoses Prostate cancer (HCC) Procedures OR LEUPROLIDE ACETATE SUSPNSION Leuprolide Every 3 Months - Prostate Gautam Cope MD [address] [facility] [address] [place] [address] Phone: tel: fax: [facility] - Infusion [address] [facility] [address] [place] [address] Referral ID Status Reason Start Date Expiration Date V isits Requested Visits Authorized [id number] Authorized 09/06/2018 07/11/2024 1 50 Encounter Details Date Type Department Care Team (Late st Contact Info) Description 12/06/2018 2:00 PM CDT Lab [facility] Oncology [address] [facility] 7th [place] [address] [place] [address] Prostate cancer (CMS/HCC); Stage 3 [...] file Legal Sex Male 4:46 PM LEAD SOFTWARE ENGINEER Gender Identity Not on file Sexual Orientation Not on file documented as of this encounter Plan of Treatment Not on file documented as of this encounter Goals Goal Patient Goal Type Associated Problems Recent Progress Patient-Stated? Author CCM Chronic Pain Care Plan Chronic Care Management No change(03/23 1:47 PM LEAD SOFTWARE ENGINEER) No Ingrid Oden, RN Note: Problem: [...] POCT URINALYSIS DIPSTICK Routine 03/01/2019 10:55 AM LEAD SOFTWARE ENGINEER Stage 3 chronic kidney disease (CMS/HCC) DIFFERENTIAL [...] * POCT urinalysis dipstick (03/01/2019 10:55 AM LEAD SOFTWARE ENGINEER) Pathologist [facility] Glucose, ur, POC Negative Negative mg/dL Bilirubin, ur, POC Negative Negative, Small, Moderate, Large Ketones, ur, POC Negative Negative Specific [place], POC 1.020 1.005 - 1.030 Blood, ur, POC Negative Negative pH, ur, POC 6.0 5.0 - 8.0 Protein, ur, POC Negative Negative Urobilinogen, urine, POC 0.2 0.2 - 1.0 mg/dL Nitrite, ur, POC Negative Negative Leukocytes, ur, POC Negative Negative Lot Number [id number] Urine 03/01/2019 10:5 5 AM LEAD SOFTWARE ENGINEER Lin Guerrero MD POINT OF CARE TEST ORDERABLES Fi nal Result * (ABNORMAL) Differential, auto (12/06/2018 2:11 PM CDT) [facility] Neutrophil abs 8.6(H) 1.8 - 6.6 K/cumm [facility] Comment:Testing performed by : [facility], [address] [place] [phone] Lymphocyte abs 1.4 1.2 - 3.3 K/cumm [facility] Comment:Testing performed by : [address] [phone] Monocyte abs 0.7 0.2 - 1.2 K/cumm [facility] Comment:Testing performed by : [address] [phone] Eosinophil abs 0.2 0.0 - 0.5 K/cumm [facility] Comment:Testing performed by : [facility], [address] [place] [phone] Basophil abs 0.1 0.0 - 0.2 K/cumm [facility] Comment:Testing performed by : [address] [address] Neutrophil pct 77.6 % [facility] Comment: Interpretive Data Percent cell count reference ranges are not reported, since discordance with absolute values may lead to misinterpretation of CBC data. Current Interpretive Data was last revised on 2017. Testing performed by: [facility], [address] [place] [phone] Lymphocyte pct 12.9 % [facility] Comment: Interpretive Data Percent cell count reference ranges are not reported, since discordance with absolute values may lead to misinterpretation of CBC data. Current Interpretive Data was last revised on 2017. Testing performed by: [facility], [address] [place] [phone] Monocyte pct 6.3 % [facility] Comment:Testing performed by : [facility], [address] [place] [phone] Eosinophil pct 2.2 % [facility] Comment:Testing performed by : [facility], [address] [place] [phone] Basophil pct 1.0 % [facility] Comment:Testing performed by : [facility], [address] [place] [phone] Blood specimen (specimen) 12/06/2018 2:11 PM CDT 12/06/2018 2:12 PM CDT us Gautam Cope MD LAB BLOOD ORDERABLES Final Resul t [facility] Department [place] [address] * (ABNORMAL) CBC with auto differential (12/06/2018 2:11 PM CDT) WBC 11.1(H) 3.8 - 9.8 K/cumm [facility] Comment:Testing performed by : [facility], [address] [place] [phone] Hgb 11.9(L) 13.8 - 17.2 g/dL [facility] Comment:Testing performed by : [address] [address] Hct 35.7(L) 40.7 - 50.3 % [facility] Comment:Testing performed by : [address] [address] Plt 380 140 - 440 K/cumm [facility] Comment:Testing performed by : [facility], [address] [place], [place] [phone] MPV 7.2 6.8 - 10.4 fL [facility] Comment:Testing performed by : [facility], [address] [place], [place] [phone] RBC 4.14(L) 4.50 - 5.70 M/cumm [facility] Comment:Testing performed by : [facility], [address] [place], [place] [phone] MCV 86.3 80.0 - 97.6 fL [facility] Comment:Testing performed by : [facility], [address] [place] [phone] MCH 28.8 26.7 - 33.7 pg [facility] Comment:Testing performed by : [facility], [address] [place], [place] [phone] MCHC 33.3 32.7 - 35.5 g/dL [facility] Comment:Testing performed by : [facility], [address] [place], [place] [phone] RDW CV 16.0(H) 11.8 - 14.6 % [facility] Comment:Testing performed by : [facility], [address] [place] [phone] NRBC abs 0.00 0.00 - 0.01 K/cumm [facility] Comment:Testing performed by : [facility], [address] [place] [phone] Blood specimen (specimen) 12/06/2018 2:11 PM CDT 12/06/2018 2:12 PM CDT us Gautam Cope MD LAB BLOOD ORDERABLES Final Resul t [facility] Department [place] [address] * Lactate dehydrogenase (LD) (12/06/2018 1:58 PM CDT) Lactate dehydrogenase (LDH) 171 100 - 250 Units/L [facility] Blood specimen (specimen) 12/06/2018 1:58 PM CDT 12/06/2018 2:28 PM CDT us Gautam Cope MD LAB BLOOD ORDERABLES Final Resul t [facility] Department [place] [address] * (ABNORMAL) Comprehensive metabolic panel (12/06/2018 1:58 PM CDT) Sodium 140 135 - 145 mmol/L [facility] Potassium, pl 5.5(H) 3.3 - 4.9 mmol/L [facility] Chloride 105 97 - 110 mmol/L [facility] CO2 28 22 - 32 mmol/L [facility] Anion gap 7 2 - 15 mmol/L [facility] BUN 36(H) 8 - 25 mg/dL [facility] Creatinine 1.57(H) 0.80 - 1.30 mg/dL [facility] Glucose 289(H) 70 - 199 mg/dL [facility] Comment: Interpretive Data Fasting glucose >/= [...] Calcium 9.1 8.5 - 10.3 mg/dL [facility] Bilirubin, total 0.2 0.1 - 1.2 mg/dL [facility] Protein, pl 6.8 6.5 - 8.5 g/dL [facility] Albumin 4.1 3.5 - 5.0 g/dL [facility] Alk phos 107 40 - 130 Units/L [facility] ALT 37 7 - 55 Units/L [facility] AST 21 10 - 50 Units/L [facility] Blood specimen (specimen) 12/06/2018 1:58 PM CDT 12/06/2018 2:28 PM CDT Gautam Cope MD LAB BLOOD ORDERABLES Final Resul t Performing Organization Address [facility] de Phone Number [facility] Department [place] [address] * PSA diagnostic (12/06/2018 1:58 PM CDT) PSA-Total 0.28 <=6.20 ng/mL [facility] Comment: Interpretive Data ?AGE ? SEX [...] Performing Organization Address [facility] de Phone Number [facility] Department [place] [address] documented in this encounter Visit Diagnoses Diagnosis Prostate cancer (HCC) Malignant neoplasm of prostate Stage 3 chronic kidney disease (HCC) documented in this encounter Orders Appointment Requests Count Last Ordered Date Fi rst Ordered Date ONCBCN LAB APPOINTMENT 1 12/06/2018 documented in this encounter Care Teams Brass Plater Relationship Specialty Start Date End Date Kraig Ching MD [address] [place] [address] PCP - General 07/10/16 Gautam Cope MD [address] [place] [address] Medical Oncologist/Dye House Helper Medical Oncology 08/18/18 Tramaine Roe MD [address] [place] [address] Referring Physician Urology 08/18/18 Sukhwinder Uribe MD [address] [facility] [address] [place] [address] Consulting Physician Urology 08/18/18 Shay Guillermo MD [address] [place] [address] Referring Physician Urology 08/18/18 Marsha Landis, RN Registered Nurse 11/17/18 documented as of this encounter
--- OUTSIDE RECORDS SUMMARY | 2024-03-31 11:34 | XMS_ITS | Encounter Summary ---
Author Organization [facility] Address [address] [place] [address] Care Team Providers Care Human Resources Project Coordinator Name Role Phone Kraig Ching MD Primary Care Provider [phone] Gautam Cope MD Unavailable Tramaine Roe MD Unavailable [phone] Sukhwinder Uribe MD Unavailable [phone] Shay Guillermo MD Unavailable [phone] Marsha Landis RN Unavailable Unavailab Ilene Kaur RN Unavailable [phone] Reason for Referral * Diagnostic Imaging (Routine) - Closed Specialty Diagnoses / Procedures Referred By Contac t Referred To Contact Diagnoses Pain management Procedures FL Fluoroscopy < 1 Hour (Statistical Only) Maru Arreola MD PhD Phone: tel: fax: [address] [address] Referral ID Status Reason Start Date Expiration Date Visits Re quested Visits Authorized [id number] Closed 01/17/2019 07/28/2020 1 1 Reason for Visit * Diagnostic Imaging (Routine) - Closed Specialty Diagnoses / Procedures Referred By Contac t Referred To Contact Diagnoses Pain management Procedures FL Fluoroscopy < 1 Hour (Statistical Only) Maru Arreola MD PhD Phone: tel: fax: [place] [address] [facility] [place] [address] Referral ID Status Reason Start Date Expiration Date Visits Re quested Visits Authorized [id number] Closed 01/17/2019 07/28/2020 1 1 Encounter Details Date Type Department Care Team (Latest Contact Info) Description 01/17/2019 7:34 AM CDT - 01/17/2019 1:56 PM CDT Hospital Encounter [facility] Pain Management [facility] ([facility]) [address] [place], [place] [id number] Maru Arreola MD PhD [address] [facility] [id number] [place] [address] Pain management Discharge Disposition: Discharge [...] on file Legal Sex Male 4:46 PM 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 [facility] Chronic Pain Care Plan Chronic Care Management No change(03/23 1:47 PM SPACE SCIENCES DIRECTOR) No Ingrid Oden, RN Note: Problem: [...] management documented in this encounter Care Teams Human Resources Project Coordinator Relationship Specialty Start Date End Date Kraig Ching MD [address] [place] [address] PCP - General 07/10/16 Gautam Cope MD [address] [place] [address] Medical Oncologist/Cotton Baler Medical Oncology 08/18/18 Tramaine Roe MD [address] [place] [address] Referring Physician Urology 08/18/18 Sukhwinder Uribe MD [address] [place] [address] Consulting Physician Urology 08/18/18 Shay Guillermo MD [address] [place] [address] Referring Physician Urology 08/18/18 Marsha Landis, RN Registered Nurse 11/17/18 Ilene Fragoso, RN [address] [place] [address] Application Engineer 12/23/18 11/01/19 documented as of this encounter
--- OUTSIDE RECORDS SUMMARY | 2024-03-31 11:34 | XMS_ITS | Encounter Summary ---
Author Organization [facility] Address [address] [place] [address] Phone Care Team Providers Care Marble Cleaner Name Role Phone Kraig Ching MD Primary Care Provider [phone] Gautam Cope MD Unavailable Tramaine Roe MD Unavailable [phone] Sukhwinder Uribe MD Unavailable Shay Guillermo MD Unavailable [phone] Marsha Landis RN Unavailable Unavailab Ilene Kaur RN Unavailable [phone] Reason for Visit * Reason Onset Date Comments other 02/24/2019 Questioning if c ould obtain 2 month supply of Zytica and Prednisone at upcoming visit to reduce travel Encounter Details Date Type Department Care Team (Late st Contact Info) Description 02/24/2019 Telephone [facility] Oncology [address] [facility] 7th [place] [address] [place] [address] Gautam Cope MD [address] [facility] [address] [place] [address] other (Questioning if could obtain [...] on file Legal Sex Male 4:46 PM COUTURE ALTERATIONS DRESSMAKER Gender Identity Not on file Sexual Orientation Not on file documented as of this encounter Miscellaneous Notes * Telephone Encounter - Ilene Fragoso RN - 02/24/2019 9:37 AM COUTURE ALTERATIONS DRESSMAKER Patient stated had to travel to [place] monthly to obtain chemotherapy medications, (Zytica and Prednisone) and questioned if he could be given a 2 month supply to reduce the travel demand. Patient's next scheduled visit 03/07/19. Please advise and notify patient if 2 month supply of medications possible. Thank you Ilene Fragoso RN, BSN, MSN Airport Duty Manager, [facility] [email or web address] [phone] URE ALTERATIONS DRESSMAKER documented in this encounter Plan of Treatment [...] Chronic Care Management No change(03/23 1:47 PM COUTURE ALTERATIONS DRESSMAKER) No Ingrid Oden RN Note: Problem: Chronic Pain Goals: 1. Minimize further functional decline 2. Maximize quality of life 3. Control pain Strategies: - Activity/exercise program recommendation - Conservative stepwise pain medicine strategy with multi-disciplinary approach - Recommend healthy lifestyle strategies and compensatory methods as needed documented as of this encounter Visit Diagnoses Not on filedocumented in this encounter Care Teams Marble Cleaner Relationship Specialty Start Date End Date Kraig Ching MD [address] [facility] [address] [place] [address] PCP - General 07/10/16 Gautam Cope MD [address] [facility] [address] [place] [address] Medical Oncologist/Rn Hemo Dialysis Medical Oncology 08/18/18 [place] [address] [place] [address] [address] [place] [address] Referring Physician Urology 08/18/18 Sukhwinder Uribe MD [address] [facility] [address] [place] [address] Consulting Physician Urology 08/18/18 [place] [address] [place] [address] [address] [place] [address] Referring Physician Urology 08/18/18 Marsha Landis, RN Registered Nurse 11/17/18 Ilene Fragoso, RN [address] [place] [address] [address] [place] [address] Airport Duty Manager 12/23/18 11/01/19 documented as of this encounter
--- OUTSIDE RECORDS SUMMARY | 2024-03-31 11:34 | XMS_ITS | Encounter Summary ---
Author Organization [facility] Address [address] [facility] [address] [place] [address] Care Team Providers Care Computer Network Specialist Name Role Phone Kraig Ching MD Primary Care Provider [phone] Gautam Cope MD Unavailable Tramaine Roe MD Unavailable [phone] Sukhwinder Uribe MD Unavailable Shay Guillermo MD Unavailable Marsha Landis RN Unavailable Unavailab Ilene Kaur RN Unavailable Reason for Visit * Reason Comments Blood Pressure Check Encounter Details Date Type Department Care Team (Late st Contact Info) Description 02/17/2019 1:45 PM CANDY STARCH MOLD PRINTER Office Visit [facility] [address] [facility] [address] [place] [address] Katherine Del Rio PA [address] [facility] [address] [place], [place] [id number] Essential hypertension (Primary Dx); Hyperkalemia; Obesity (BMI [...] file Legal Sex Male 4:46 PM CANDY STARCH MOLD PRINTER Gender Identity Not on file Sexual Orientation Not on file documented as of this encounter Last Filed Vital Signs Vital Sign Reading Time Taken Comments Blood Pressure 136/74 02/17/2019 2:28 PM CANDY STARCH MOLD PRINTER Pulse 81 02/17/2019 1:58 PM CANDY STARCH MOLD PRINTER Temperature 37.1 ??C (98.7 ??F) 02/17/2019 1:58 PM CS T Respiratory Rate 16 02/17/2019 1:58 PM CANDY STARCH MOLD PRINTER Oxygen Saturation 96% 02/17/2019 1:58 PM CANDY STARCH MOLD PRINTER Inhaled Oxygen Concentration - - Weight 99.8 kg (220 lb) 02/17/2019 1:58 PM CANDY STARCH MOLD PRINTER Height 179.1 cm (5' 10.5 ) 02/17/2019 1:58 PM CS T Body Mass Index 31.12 02/17/2019 1:58 PM CANDY STARCH MOLD PRINTER documented in this encounter Progress Notes * [...] Obesity (BMI 30-39.9) BMI 31.0-31.9,adult [place] Landry Y STARCH MOLD PRINTER documented in this encounter Plan of Treatment [...] Care Management No change(03/23 1:47 PM CANDY STARCH MOLD PRINTER) No Ingrid Oden, RN Note: Problem: Chronic [...] 31.0-31.9,adult documented in this encounter Care Teams Computer Network Specialist Relationship Specialty Start Date End Date Kraig Ching MD [address] [place] [address] PCP - General 07/10/16 Gautam Cope MD [address] [place] [address] Medical Oncologist/Learning Consultant Medical Oncology 08/18/18 Tramaine Roe MD [address] [place] [address] Referring Physician Urology 08/18/18 Sukhwinder Uribe MD [address] [place] [address] Consulting Physician Urology 08/18/18 Shay Guillermo MD [address] [place] [address] Referring Physician Urology 08/18/18 Marsha Landis, RN Registered Nurse 11/17/18 Ilene Fragoso, RN [address] [place] [address] Drafter Patent 12/23/18 11/01/19 documented as of this encounter
--- OUTSIDE RECORDS SUMMARY | 2024-03-31 11:34 | XMS_ITS | Encounter Summary ---
Author Organization [facility] Care Team Providers Care Nursing Staff Development Coordinator Name Role Phone Kraig Ching MD Primary Care Provider [phone] Gautam Cope MD Unavailable Tramaine Roe MD Unavailable [phone] Sukhwinder Uribe MD Unavailable [phone] Shay Guillermo MD Unavailable [phone] Marsha Landis RN Unavailable Unavailab Ilene Kaur [...] on file Legal Sex Male 4:46 PM BRAKE ENGINEER Gender Identity Not on file Sexual [...] Chronic Care Management No change(03/23 1:47 PM BRAKE ENGINEER) No Ingrid Oden, SHEA Note: Problem: Chronic Pain Goals: 1. Minimize further functional decline 2. Maximize quality of life 3. Control pain Strategies: - Activity/exercise program recommendation - Conservative stepwise pain medicine strategy with multi-disciplinary approach - Recommend healthy lifestyle strategies and compensatory methods as needed documented as of this encounter Visit Diagnoses Not on filedocumented in this encounter Care Teams Nursing Staff Development Coordinator Relationship Specialty Start Date End Date Kraig Ching MD [address] [facility] [address] [place] [address] PCP - General 07/10/16 Gautam Cope MD [address] [facility] [address] [place] [address] Medical Oncologist/Billing Supervisor Medical Oncology 08/18/18 Tramaine Roe MD [address] [facility] [address] [place] [address] Referring Physician Urology 08/18/18 Sukhwinder Uribe MD [address] [facility] [address] [place] [address] Consulting Physician Urology 08/18/18 Shay Guillermo MD [address] [facility] [address] [place] [address] Referring Physician Urology 08/18/18 Marsha Landis RN Registered Nurse 11/17/18 Ilene Fragoso, RN [address] [place] [address] [address] [place] [address] Shipping And Receiving Associate 12/23/18 11/01/19 documented as of this encounter
--- OUTSIDE RECORDS SUMMARY | 2024-03-31 11:34 | XMS_ITS | Encounter Summary ---
Author Organization [facility] Address [address] [place] [address] Phone Care Team Providers Care Regional Retail Sales Manager Name Role Phone Kraig Ching MD Primary Care Provider Gautam Cope MD Unavailable Tramaine Roe MD Unavailable [phone] Sukhwinder Uribe MD Unavailable Shay Guillermo MD Unavailable [phone] Marsha Landis RN Unavailable Unavailab le Encounter Details Date Type Department Care Team (Late st Contact Info) Description 12/09/2018 Orders Only [facility] Oncology [address] [facility] 7th [place] [address] [place] [address] Muna Saleem RN Social History Tobacco Use [...] on file 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 Author CCM Chronic Pain Care Plan Chronic Care Management No change(03/23 1:47 PM OWNER MANAGER) No Ingrid Oden, SHAE Note: Problem: Chronic Pain Goals: 1. Minimize further functional decline 2. Maximize quality of life 3. Control pain Strategies: - Activity/exercise program recommendation - Conservative stepwise pain medicine strategy with multi-disciplinary approach - Recommend healthy lifestyle strategies and compensatory methods as needed documented as of this encounter Visit Diagnoses Not on filedocumented in this encounter Care Teams Regional Retail Sales Manager Relationship Specialty Start Date End Date Kraig Ching MD [address] [place] [address] PCP - General 07/10/16 Gautam Cope MD [address] [place] [address] Medical Oncologist/Millinery Copyist Medical Oncology 08/18/18 Tramaine Roe MD [address] [place] [address] Referring Physician Urology 08/18/18 Sukhwinder Uribe MD [address] [place] [address] Consulting Physician Urology 08/18/18 Shay Guillermo MD [address] [place] [address] Referring Physician Urology 08/18/18 Marsha Landis, RN Registered Nurse 11/17/18 documented as of this encounter
--- OUTSIDE RECORDS SUMMARY | 2024-03-31 11:34 | XMS_ITS | Encounter Summary ---
Author Organization [facility] Address [address] [place] [address] Phone Care Team Providers Care Stoker Installer Name Role Phone Kraig Ching MD Primary Care Provider [phone] Gautam Cope MD Unavailable Tramaine Roe MD Unavailable Sukhwinder Uribe MD Unavailable [phone] Shay Guillermo MD Unavailable [phone] Marsha Landis RN Unavailable Unavailab Ilene Kaur RN Unavailable [phone] Encounter Details Date Type Department Care Team (Late st Contact Info) Description 03/03/2019 Orders Only [facility] Oncology [address] [facility] Advanced Medicine 7th [place] [address] [place] [id number] Muna Saleem RN Prostate cancer (CMS/HCC) Social [...] on file Legal Sex Male 4:46 PM BUDGET MANAGER Gender Identity Not on file Sexual [...] to monitor diabetes and kidney status, etc. [facility] Chronic Pain Care Plan Chronic Care Management No change(03/23 1:47 PM BUDGET MANAGER) No Ingrid Oden, RN Note: Problem: Chronic Pain Goals: 1. Minimize further functional decline 2. Maximize quality of life 3. Control pain Strategies: - Activity/exercise program recommendation - Conservative stepwise pain medicine strategy with multi-disciplinary approach - Recommend healthy lifestyle strategies and compensatory methods as needed documented as of this encounter Results * PSA diagnostic (05/30/2019 10:55 AM BUDGET MANAGER) PSA-Total <0.10 <=6.20 ng/mL [facility] Comment: Interpretive Data ?AGE ? SEX ?REFERENCE INTERVAL 0 minutes-150 years ?Female ?None 0 minutes-49 years ? Male ?None ? 50-59 years ? Male ?0-3.90 ? 60-69 years ? Male ?0-5.40 ? 70-79 years ? Male ?0-6.20 ? 80-150 years ?Male ?0-6.20 Current interpretive data last revised 2017. Blood specimen (specimen) 05/30/2019 10:55 AM BUDGET MANAGER 05/30/2019 11:34 AM BUDGET MANAGER us Gautam Cope MD LAB BLOOD ORDERABLES Final Resul t [facility] Department [place] [address] * (ABNORMAL) Comprehensive metabolic panel (05/30/2019 10:55 AM BUDGET MANAGER) Sodium 137 135 - 145 mmol/L [facility] Potassium, pl 4.6 3.3 - 4.9 mmol/L [facility] Chloride 98 97 - 110 mmol/L [facility] CO2 29 22 - 32 mmol/L [facility] Anion gap 10 2 - 15 mmol/L [facility] BUN 29(H) 8 - 25 mg/dL [facility] Creatinine 1.48(H) 0.80 - 1.30 mg/dL [facility] Glucose 259(H) 70 - 199 mg/dL [facility] [...] Calcium 9.9 8.5 - 10.3 mg/dL [facility] Bilirubin, total 0.4 0.1 - 1.2 mg/dL [facility] Protein, pl 7.1 6.5 - 8.5 g/dL [facility] Albumin 4.1 3.5 - 5.0 g/dL [facility] Alk phos 104 40 - 130 Units/L [facility] ALT 19 7 - 55 Units/L [facility] AST 18 10 - 50 Units/L [facility] Blood specimen (specimen) 05/30/2019 10:55 AM BUDGET MANAGER 05/30/2019 11:34 AM BUDGET MANAGER us Gautam Cope MD LAB BLOOD ORDERABLES Final Resul t Performing Organization Address [facility] de Phone Number [facility] Department [place] [address] * Lactate dehydrogenase (LD) (05/30/2019 10:55 AM BUDGET MANAGER) Pathologist [facility] Lactate dehydrogenase (LDH) 204 100 - 250 Units/L [facility] Blood specimen (specimen) 05/30/2019 10:55 AM BUDGET MANAGER 05/30/2019 11:34 AM BUDGET MANAGER us Gautam Cope MD LAB BLOOD ORDERABLES Final Resul t Performing Organization Address [facility] Co de Phone Number [facility] Department [place] [address] * (ABNORMAL) CBC with auto differential (05/30/2019 10:51 AM BUDGET MANAGER) Pathologist [facility] WBC 10.5(H) 3.8 - 9.8 K/cumm [facility] Comment:Testing performed by : [facility], [address] [place] [address] Hgb 12.1(L) 13.8 - 17.2 g/dL [facility] Comment:Testing performed by : [place] [address] Hct 36.3(L) 40.7 - 50.3 % [facility] Comment:Testing performed by : [facility], [address] [place] [address] Plt 381 140 - 440 K/cumm [facility] Comment:Testing performed by : [place] [address] MPV 7.7 6.8 - 10.4 fL [facility] Comment:Testing performed by : [place] [address] RBC 4.01(L) 4.50 - 5.70 M/cumm [facility] Comment:Testing performed by : [place] [address] MCV 90.6 80.0 - 97.6 fL [facility] Comment:Testing performed by : [place] [address] MCH 30.2 26.7 - 33.7 pg [facility] Comment:Testing performed by : [place] [address] MCHC 33.4 32.7 - 35.5 g/dL [facility] Comment:Testing performed by : [place] [address] RDW CV 13.5 11.8 - 14.6 % [facility] Comment:Testing performed by : [place] [address] NRBC abs 0.00 0.00 - 0.01 K/cumm [facility] Comment:Testing performed by : [place] [address] Blood specimen (specimen) 05/30/2019 10:51 AM BUDGET MANAGER 05/30/2019 10:55 AM BUDGET MANAGER us Gautam Cope MD LAB BLOOD ORDERABLES Final Resul t [facility] Department [place] [address] documented in this encounter Visit Diagnoses Diagnosis Prostate cancer (HCC) Malignant neoplasm of prostate documented in this encounter Orders Appointment Requests Count Last Ordered Date Fi rst Ordered Date ONCBCN CLINIC APPOINTMENT REQUEST 1 020 ONCBCN INJECTION APPOINTMENT REQUEST 1 05/13 ONCBCN LAB APPOINTMENT 1 05/30/2019 documented in this encounter Care Teams Stoker Installer Relationship Specialty Start Date End Date Kraig Ching MD [address] [facility] [address] [place] [address] PCP - General 07/10/16 Gautam Cope MD [id number] [place] [address] Medical Oncologist/Churner Medical Oncology 08/18/18 Tramaine Roe MD [address] [facility] [address] [place] [address] Referring Physician Urology 08/18/18 Sukhwinder Uribe MD [address] [facility] [address] [place] [address] Consulting Physician Urology 08/18/18 Shay Guillermo MD [address] [place] [address] Referring Physician Urology 08/18/18 Marsha Landsi, RN Registered Nurse 11/17/18 Ilene Fragoso, SHEA [address] [facility] [address] [place] [address] Behavioral School Counselors 12/23/18 11/01/19 documented as of this encounter
--- OUTSIDE RECORDS SUMMARY | 2024-03-31 11:34 | XMS_ITS | Encounter Summary ---
Author Organization [facility] Address [address] [place] [address] Care Team Providers Care Vending Enterprises Supervisor Name Role Phone Kraig Ching MD Primary Care Provider Gautam Cope MD Unavailable Tramaine Roe MD Unavailable [phone] Sukhwinder Uribe MD Unavailable Shay Guillermo MD Unavailable [phone] Marsha Landis RN Unavailable Unavailab Ilene Kaur RN Unavailable [phone] Reason for Visit * Reason Comments Back Pain Low. Encounter Details Date Type Department Care Team (Latest Contact Info) Description 01/17/2019 1:57 PM CDT - 01/17/2019 11:59 PM CDT Hospital Encounter [facility] [address] [facility] [address] [place] [address] Maru Arreola MD PhD [address] [facility] [phone] [place], [place] [id number] Spinal stenosis of lumbar region with neurogenic [...] on file Legal Sex Male 4:46 PM ROUSTABOUT Gender Identity Not on file Sexual Orientation [...] DIET: [x] Resume normal diet [] See [facility] Post Discharge Procedure Information Sheet ACTIVITY: [] Resume normal activity [x] See [facility] Post Discharge Procedure Information Sheet REFERRALS: Physical Therapy [] [facility] Physical Therapy ([phone]) [] GMI (Graded Motor Imagery) [] [facility] ([phone]) [] GMI (Graded Motor Imagery) [x] Other:At outside facility Behavior Medicine [] Pain Psychologist, [facility] Pain Psychology Please call to schedule appointment [phone] or [phone] Diagnostic Test(s): EDUCATION provided on the following: [...] work required 2 hours before procedure: [x] Field Coordinator needed for next procedure Patient provided information and repeated back with understanding. If you need to reach us: For any questions about your procedure, please call the Pain Management Center [phone] (M-F) (8am-4pm) If you need urgent attention after 5 pm and weekends: Call the [facility] Associate Automation Engineer at [phone] and ask for the Pain Service doctor sales representative consultant. documented in this encounter Medications at [...] Wei : 1940 Today's Date: 01/17/2019 PCP: Kriag Ching MD Referring: Maru Arreola MD PhD [...] Ph.D Fellow, Pain Management, Department of Anesthesiology [facility] I have seen and examined the patient. I agree with the findings and plan of care as documented in the resident's note. Maru Arreola MD PhD Instructor of Anesthesiology [facility] 01/17/2019 3:45 PM documented in this [...] to monitor diabetes and kidney status, etc. [facility] Chronic Pain Care Plan Chronic Care Management No change(03/23 1:47 PM ROUSTABOUT) No Ingrid Oden RN Note: Problem: Chronic [...] 01/17/2019 documented in this encounter Care Teams Vending Enterprises Supervisor Relationship Specialty Start Date End Date Kraig Ching MD [address] [facility] [address] [place] [address] PCP - General 07/10/16 Gautam Cope MD [address] [facility] [address] [place] [address] Medical Oncologist/Auto Roller Medical Oncology 08/18/18 Tramaine Roe MD [address] [facility] [address] [place] [address] Referring Physician Urology 08/18/18 Sukhwinder Uribe MD [address] [facility] [address] [place] [address] Consulting Physician Urology 08/18/18 Shay Guillermo MD [address] [facility] [address] [place] [address] Referring Physician Urology 08/18/18 Marsha Landis, RN Registered Nurse 11/17/18 Ilene Fragoso, RN [address] [facility] [address] [place] [address] Stores Laborer 12/23/18 11/01/19 documented as of this encounter
--- OUTSIDE RECORDS SUMMARY | 2024-03-31 11:34 | XMS_ITS | Encounter Summary ---
Author Organization [facility] Address [address] [place] [address] Phone Care Team Providers Care Learning Manager Name Role Phone Kraig Ching MD Primary Care Provider [phone] Gautam Cope MD Unavailable Tramaine Roe MD Unavailable [phone] Sukhwinder Uribe MD Unavailable Shay Guillermo MD Unavailable [phone] Marsha Landis RN Unavailable Unavailab Ilene Kaur RN Unavailable [phone] Encounter Details Date Type Department Care Team (Late st Contact Info) Description 12/06/2018 Telephone [facility] Oncology [facility] Advanced Medicine 7th [place] [address] Salena Bryan NP [address] [place] [address] Social History Tobacco Use Types Packs/Day Years [...] on file Legal Sex Male 4:46 PM ROLL PANNER Gender Identity Not on file Sexual Orientation Not on file documented as of this encounter Plan of Treatment Not on file documented as of this encounter Goals Goal Patient Goal Type Associated Problems Recent Progress Patient-Stated? Author CCM Chronic Pain Care Plan Chronic Care Management No change(03/23 1:47 PM ROLL PANNER) No Ingrid Oden, SHEA Note: Problem: Chronic Pain Goals: 1. Minimize further functional decline 2. Maximize quality of life 3. Control pain Strategies: - Activity/exercise program recommendation - Conservative stepwise pain medicine strategy with multi-disciplinary approach - Recommend healthy lifestyle strategies and compensatory methods as needed documented as of this encounter Visit Diagnoses Not on filedocumented in this encounter Care Teams Learning Manager Relationship Specialty Start Date End Date Kraig Ching MD [address] [place] [address] PCP - General 07/10/16 Gautam Cope MD [address] [place] [address] Medical Oncologist/Systems Consultant Medical Oncology 08/18/18 Tramaine Roe MD [address] [facility] [address] [place] [address] Referring Physician Urology 08/18/18 Sukhwinder Uribe MD [address] [facility] [address] [place] [address] Consulting Physician Urology 08/18/18 Shay Guillermo MD [address] [facility] [address] [place] [address] Referring Physician Urology 08/18/18 Marsha Landis, RN Registered Nurse 11/17/18 Ilene Fragoso, RN [address] [facility] [address] [place] [address] Outside Sales Engineer 12/23/18 11/01/19 documented as of this encounter
--- OUTSIDE RECORDS SUMMARY | 2024-03-31 11:34 | XMS_ITS | Encounter Summary ---
Author Organization [facility] Facility Care Team Providers Care Information Systems Security Developer Name Role Phone Kraig Ching MD Primary Care Provider [phone] Gautam Cope MD Unavailable Tramaine Roe MD Unavailable [phone] Sukhwinder Uribe MD Unavailable [phone] Shay Guillermo MD Unavailable Marsha Landis RN [...] on file Legal Sex Male 4:46 PM LOCUM TENENS Gender Identity Not on file Sexual Orientation Not on file documented as of this encounter Plan of Treatment Not on file documented as of this encounter Goals Goal Patient Goal Type Associated Problems Recent Progress Patient-Stated? Author [facility] Chronic Pain Care Plan Chronic Care Management No change(03/23 1:47 PM LOCUM TENENS) No Ingrid Oden, SHEA Note: Problem: Chronic Pain Goals: 1. Minimize further functional decline 2. Maximize quality of life 3. Control pain Strategies: - Activity/exercise program recommendation - Conservative stepwise pain medicine strategy with multi-disciplinary approach - Recommend healthy lifestyle strategies and compensatory methods as needed documented as of this encounter Visit Diagnoses Not on filedocumented in this encounter Care Teams Information Systems Security Developer Relationship Specialty Start Date End Date Kraig Ching MD [address] [facility] [address] [place] [address] PCP - General 07/10/16 Gautam Cope MD [address] [facility] [address] [place] [address] Medical Oncologist/Regional Sales Engineer Medical Oncology 08/18/18 Tramaine Roe MD [address] [facility] [address] [place] [address] Referring Physician Urology 08/18/18 Sukhwinder Uribe MD [address] [facility] [address] [place] [address] Consulting Physician Urology 08/18/18 Shay Guillermo MD [address] [facility] [address] [place] [address] Referring Physician Urology 08/18/18 Marsha Landis, RN Registered Nurse 11/17/18 documented as of this encounter
--- OUTSIDE RECORDS SUMMARY | 2024-03-31 11:34 | XMS_ITS | Encounter Summary ---
Author Organization [facility] Address [address] [facility] [address] [place] [address] Care Team Providers Care Vehicle Window Tinter Name Role Phone Kraig Ching MD Primary Care Provider Gautam Cope MD Unavailable Tramaine Roe MD Unavailable [phone] Sukhwinder Uribe MD Unavailable Shay Guillermo MD Unavailable Marsha Landis RN Unavailable Unavailab Ilene Kaur RN Unavailable Encounter Details Date Type Department Care Team (Late st Contact Info) Description 01/18/2019 Orders Only [facility] [address] [facility] [address] [place] [address] Katherine Del Rio PA [address] [facility] [address] [place], [place] [address] Abnormal laboratory test result (Primary Dx) Social [...] on file Legal Sex Male 4:46 PM 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 [facility] Chronic Pain Care Plan Chronic Care Management No change(03/23 1:47 PM LIFTS AND CRANES INSPECTOR) No Ingrid Oden, SHEA Note: Problem: [...] finding documented in this encounter Care Teams Vehicle Window Tinter Relationship Specialty Start Date End Date Kraig Ching MD [address] [facility] [address] [place] [address] PCP - General 07/10/16 Gautam Cope MD [address] [facility] [address] [place] [address] Medical Oncologist/Vendor Analyst Medical Oncology 08/18/18 Tramaine Roe MD [address] [facility] [address] [place] [address] Referring Physician Urology 08/18/18 Sukhwinder Uribe MD [address] [facility] [address] [place] [address] Consulting Physician Urology 08/18/18 Shay Guillermo MD [address] [facility] [address] [place] [address] Referring Physician Urology 08/18/18 Marsha Landis, RN Registered Nurse 11/17/18 Ilene Fragoso, SHEA [address] [facility] [address] [place] [address] Mill Work 12/23/18 11/01/19 documented as of this encounter
--- OUTSIDE RECORDS SUMMARY | 2024-03-31 11:34 | XMS_ITS | Encounter Summary ---
Author Organization [facility] Facility Care Team Providers Care Senior Cost Analyst Name Role Phone Kraig Ching MD Primary Care Provider [phone] Gautam Cope MD Unavailable Tramaine Roe MD Unavailable [phone] Sukhwinder Uribe MD Unavailable [phone] Shay Guillermo MD Unavailable [phone] Marsha Landis RN Unavailable Unavailab Ilene Kaur RN Unavailable [phone] Encounter Details Date Type Department Care Team [...] on file Legal Sex Male 4:46 PM BUTADIENE CONVERTOR OPERATOR Gender Identity Not on file Sexual [...] Chronic Care Management No change(03/23 1:47 PM BUTADIENE CONVERTOR OPERATOR) No Ingrid Oden, SHEA Note: Problem: Chronic Pain Goals: 1. Minimize further functional decline 2. Maximize quality of life 3. Control pain Strategies: - Activity/exercise program recommendation - Conservative stepwise pain medicine strategy with multi-disciplinary approach - Recommend healthy lifestyle strategies and compensatory methods as needed documented as of this encounter Visit Diagnoses Not on filedocumented in this encounter Care Teams Senior Cost Analyst Relationship Specialty Start Date End Date Kraig Ching MD [address] [facility] [address] [place] [address] PCP - General 07/10/16 Gautam Cope MD [address] [facility] [address] [place] [address] Medical Oncologist/Director Of Health Education Medical Oncology 08/18/18 Tramaine Roe MD [address] [facility] [address] [place] [address] Referring Physician Urology 08/18/18 Sukhwinder Uribe MD [address] [facility] [address] [place] [address] Consulting Physician Urology 08/18/18 Shay Guillermo MD [address] [facility] [address] [place] [address] Referring Physician Urology 08/18/18 Marsha Landis RN Registered Nurse 11/17/18 Ilene Fragoso, RN [address] [place] [address] [address] [place] [address] Demand Generation Manager 12/23/18 11/01/19 documented as of this encounter
--- OUTSIDE RECORDS SUMMARY | 2024-03-31 11:34 | XMS_ITS | Encounter Summary ---
Author Organization [facility] [facility] Address [address] [place] [address] Phone Care Team Providers Care Pairer Substandard Name Role Phone Kraig Ching MD Primary Care Provider [phone] Gautam Cope MD Unavailable Tramaine Roe MD Unavailable [phone] Sukhwinder Uribe MD Unavailable [phone] Shay Guillermo MD Unavailable [phone] Marsha Landis RN Unavailable Unavailab le Reason for Visit * Reason Comments Injections Lupron * Episode Based Medications (Routine) - Authorized Specialty Diagnoses / Procedures Referred By Saleem t Referred To Contact Oncology Diagnoses Prostate cancer (HCC) Procedures RI LEUPROLIDE ACETATE SUSPNSION Leuprolide Every 3 Months - Prostate Gautam Cope MD [address] [facility] [address] [place] [address] Phone: tel: fax: [facility] [address] [facility] [address] [place] [address] Referral ID Status Reason Start Date Expiration Date V isits Requested Visits Authorized [id number] Authorized 09/06/2018 07/11/2024 1 50 Encounter Details Date Type Department Care Team (Late st Contact Info) Description 12/13/2018 11:15 AM CDT Infusion [facility] Oncology [address] [facility] Advanced Medicine 7th [place] [address] Prostate cancer (CMS/HCC) (Primary Dx) [...] on file Legal 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 Gender Identity Not on file [...] Chronic Care Management No change(03/23 1:47 PM CIRCULAR KNIFE CUTTER MACHINE) No Ingrid Oden, SHEA Note: Problem: Chronic [...] 06/2018 documented in this encounter Care Teams Pairer Substandard Relationship Specialty Start Date End Date Kraig Ching MD [address] [place] [address] PCP - General 07/10/16 Gautam Cope MD [address] [place] [address] Medical Oncologist/General Foundry Worker Medical Oncology 08/18/18 Tramaine Roe MD [address] [place] [address] Referring Physician Urology 08/18/18 Sukhwinder Uribe MD [address] [place] [address] Consulting Physician Urology 08/18/18 Shay Guillermo MD [address] [place] [address] Referring Physician Urology 08/18/18 Marsha Landis, RN Registered Nurse 11/17/18 documented as of this encounter
--- OUTSIDE RECORDS SUMMARY | 2024-03-31 11:34 | XMS_ITS | Encounter Summary ---
Author Organization [facility] Address [address] [place] [address] Care Team Providers Care Building Superintendent Name Role Phone Kraig Ching MD Primary Care Provider [phone] Gautam Cope MD Unavailable Tramaine Roe MD Unavailable [phone] Sukhwinder Uribe MD Unavailable Shay Guillermo MD Unavailable Marsha Landis RN Unavailable Unavailab Ilene Kaur RN Unavailable Reason for Visit * Reason Comments Medicare Wellness Encounter Details Date Type Department Care Team (Late st Contact Info) Description 01/17/2019 1:00 PM CDT Office Visit [facility] [address] [place] [id number] Katherine Del Rio PA [address] [facility] [address] [place], [place] [id number] Medicare annual wellness visit, subsequent (Primary Dx); [...] on file 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 ACCU-CHEK FASTCLIX LANCET DRUM [facility] [place], TEST BLOOD SUGAR BID, Disp: , Rfl: [...] General Kraig Ching MD as PCP - [facility] Attributed PCP Gautam Cope MD as Medical Oncologist/Helicopter Pilot Instructor (Medical Oncology) Tramaine Roe MD as Referring Physician (Urology) Sukhwinder Uribe MD as Consulting Physician (Urology) Shay Guillermo MD as Referring Physician (Urology) Marsha Landis RN as Registered Nurse Ilene Fragoso RN as Newspaper ClipperFinancial Sales Advisor Pharmacy/DME suppliers: [id number] - [place], [place] - [address] AT [place] [address]) & [address] [facility] [phone] [facility] [place], [place] - [facility] [address] Detection of Cognitive Impairment: The patient does [...] disease, without long-term current use of insulin ([facility]) Comments: Recent A1c close to goal. Continue nephrotoxin avoidance. Prostate cancer ([facility]) Comments: Continue management per oncology. Hyperlipidemia associated with type 2 diabetes mellitus ([facility]) Comments: Improved. Continue pravastatin and low cholesterol diet. PAF (paroxysmal atrial fibrillation) ([facility]) Comments: RRR today. Continue current medications. Essential hypertension Comments: BP at goal. Taper lisinopril due to chronic hyperkalemia. Continue Orders: - Basic metabolic panel; Future - lisinopril (PRINIVIL,ZESTRIL) 20 mg tablet; Take 1 tablet (20 mg total) by mouth daily Chronic obstructive pulmonary disease, unspecified COPD type ([facility]) Comments: Asymptomatic. Monitor Flu vaccine need [...] update and summary of today's office visit. ICAL STUDIES PROFESSOR documented in this encounter Plan of [...] Chronic Care Management No change(03/23 1:47 PM BIBLICAL STUDIES PROFESSOR) No Ingrid Oden, RN Note: Problem: [...] CDT) Sodium 141 135 - 145 mmol/L [facility] Potassium, pl 4.9 3.3 - 4.9 mmol/L [facility] Chloride 102 97 - 110 mmol/L [facility] CO2 26 22 - 32 mmol/L [facility] Anion gap 13 2 - 15 mmol/L [facility] BUN 43(H) 8 - 25 mg/dL [facility] Creatinine 1.75(H) 0.80 - 1.30 mg/dL [facility] Glucose 211(H) 70 - 199 mg/dL [facility] Comment: Interpretive Data Fasting glucose [...] 2017. Calcium 9.3 8.5 - 10.3 mg/dL [facility] Blood specimen (specimen) 01/17/2019 1:40 PM CDT 01/17/2019 5:54 PM CDT Katherine ESQUIVEL LAB BLOOD ORDERABLES Final Result [facility] [address] [place] [address] documented in this encounter Visit Diagnoses Diagnosis [...] 01/17/2019 documented in this encounter Care Teams Building Superintendent Relationship Specialty Start Date End Date Kraig Ching MD [address] [facility] [address] [place] [address] PCP - General 07/10/16 Gautam Cope MD [address] [facility] [address] [place] [address] Medical Oncologist/Helicopter Pilot Instructor Medical Oncology 08/18/18 Tramaine Roe MD [address] [facility] [address] [place] [address] Referring Physician Urology 08/18/18 Sukhwinder Uribe MD [address] [facility] [address] [place] [address] Consulting Physician Urology 08/18/18 Shay Guillermo MD [address] [facility] [address] [place] [address] Referring Physician Urology 08/18/18 Marsha Landis, RN Registered Nurse 11/17/18 Ilene Fragoso, RN [address] [facility] [address] [place] [address] Newspaper Clipper 12/23/18 11/01/19 documented as of this encounter
--- OUTSIDE RECORDS SUMMARY | 2024-03-31 11:34 | XMS_ITS | Encounter Summary ---
Author Organization [facility] Healthcare Address [address] [place] [address] Care Team Providers Care Slot Floor Supervisor Name Role Phone Kraig Ching MD Primary Care Provider [phone] Gautam Cope MD Unavailable Tramaine Roe MD Unavailable [phone] Sukhwinder Uribe MD Unavailable [phone] Shay Guillermo MD Unavailable [phone] Marsha Landis RN Unavailable Unavailab Ilene Kaur RN Unavailable [phone] Encounter Details Date Type Department Care Team (Late st Contact Info) Description 02/17/2019 3:10 PM SERGEANT OF OFFICERS Lab [facility] [address] [place] [address] Lin Guerrero MD [address] [place] [address] [place] [id number] CRD (chronic renal disease), stage III (CMS/HCC); [...] on file Legal Sex Male 4:46 PM SERGEANT OF OFFICERS Gender Identity Not on file Sexual Orientation [...] to monitor diabetes and kidney status, etc. [facility] Chronic Pain Care Plan Chronic Care Management No change(03/23 1:47 PM SERGEANT OF OFFICERS) No Ingrid Oden, SHEA Note: Problem: Chronic [...] DIFFERENTIAL AUTO Routine 02/17/2019 3:0 7 PM SERGEANT OF OFFICERS CRD (chronic renal disease), stage III (CMS/HCC) Essential hypertension CBC WITH AUTO DIFFERENTIAL Routine 02/17/2019 3:07 PM SERGEANT OF OFFICERS CRD (chronic renal disease), stage III (CMS/HCC) Essential hypertension RENAL FUNCTION PANEL Routine 02/17/2019 3:07 PM SERGEANT OF OFFICERS CRD (chronic renal disease), stage III (CMS/HCC) Essential hypertension documented in this encounter Results * (ABNORMAL) Differential, auto (02/17/2019 3:07 PM SERGEANT OF OFFICERS) Neutrophil abs 8.6(H) 1.7 - 6.5 K/cumm [facility] Imm gran abs 0.1 0.0 - 0.1 K/cumm [facility] Lymphocyte abs 1.5 0.8 - 3.3 K/cumm [facility] Monocyte abs 0.9(H) 0.2 - 0.8 K/cumm [facility] Eosinophil abs 0.1 0.0 - 0.5 K/cumm [facility] Basophil abs 0.0 0.0 - 0.1 K[facility]cumm [facility] Neutrophil pct 76.7 % [facility] Comment: Interpretive Data Percent cell count reference ranges are not reported, since discordance with absolute values may lead to misinterpretation of CBC data. Current Interpretive Data was last revised on 2017. Imm gran pct 1.0 % [facility] Comment: Interpretive Data Percent cell count reference ranges are not reported, since discordance with absolute values may lead to misinterpretation of CBC data. Current Interpretive Data was last revised on 2017. Lymphocyte pct 13.2 % [facility] Comment: Interpretive Data Percent cell count reference ranges are not reported, since discordance with absolute values may lead to misinterpretation of CBC data. Current Interpretive Data was last revised on 2017. Monocyte pct 7.9 % [facility] Comment: Interpretive Data Percent cell count reference ranges are not reported, since discordance with absolute values may lead to misinterpretation of CBC data. Current Interpretive Data was last revised on 2017. Eosinophil pct 0.8 % [facility] Comment: Interpretive Data Percent cell count reference ranges are not reported, since discordance with absolute values may lead to misinterpretation of CBC data. Current Interpretive Data was last revised on 2017. Basophil pct 0.4 % [facility] Comment: Interpretive Data Percent cell count reference ranges are not reported, since discordance with absolute values may lead to misinterpretation of CBC data. Current Interpretive Data was last revised on 2017. Blood specimen (specimen) 02/17/2019 3:07 PM SERGEANT OF OFFICERS 02/17/2019 3:16 PM SERGEANT OF OFFICERS us Lin Guerrero MD LAB BLOOD ORDERABLES Final Resul t [facility] [address] [facility] [place] [address] * (ABNORMAL) Renal function panel (02/17/2019 3:07 PM SERGEANT OF OFFICERS) Sodium 141 135 - 145 mmol/L [facility] Potassium, pl 4.7 3.3 - 4.9 mmol/L [facility] Chloride 103 97 - 110 mmol/L [facility] CO2 28 22 - 32 mmol/L [facility] Anion gap 10 2 - 15 mmol/L [facility] BUN 34(H) 8 - 25 mg/dL [facility] Creatinine 1.99(H) 0.80 - 1.30 mg/dL [facility] Glucose 202(H) 70 - 199 mg/dL [facility] [...] 2017. Calcium 9.1 8.5 - 10.3 mg/dL [facility] Phosphorus, pl 3.1 2.3 - 4.5 mg/dL [facility] Albumin 4.1 3.5 - 5.0 g/dL [facility] Blood specimen (specimen) 02/17/2019 3:07 PM SERGEANT OF OFFICERS 02/17/2019 3:16 PM SERGEANT OF OFFICERS Lin Guerrero MD LAB BLOOD ORDERABLES Final Resul t Performing Organization Address [facility] de Phone Number [facility] [place] [address] * (ABNORMAL) CBC with auto differential (02/17/2019 3:07 PM SERGEANT OF OFFICERS) WBC 11.2(H) 3.8 - 9.9 K/cumm [facility] Hgb 12.0(L) 13.0 - 17.5 g/dL [facility] Hct 36.7(L) 38.9 - 50.3 % [facility] Plt 338 150 - 400 K/cumm [facility] MPV 9.6 9.1 - 12.3 fL [facility] RBC 4.00(L) 4.30 - 5.80 M/cumm [facility] MCV 91.8 81.3 - 96.4 fL [facility] MCH 30.0 27.1 - 33.3 pg [facility] MCHC 32.7 32.3 - 35.7 g/dL [facility] RDW CV 13.9 11.1 - 14.9 % [facility] RDW SD 46.9 35.7 - 48.1 fL [facility] NRBC abs 0.00 0.00 - 0.01 K/cumm [facility] Blood specimen (specimen) 02/17/2019 3:07 PM SERGEANT OF OFFICERS 02/17/2019 3:16 PM SERGEANT OF OFFICERS Lin Guerrero MD LAB BLOOD ORDERABLES Final Resul t [facility] [place] [address] documented in this encounter Visit Diagnoses Diagnosis CRD (chronic renal disease), stage III (HCC) Chronic kidney disease, Stage III (moderate) Essential hypertension Unspecified essential hypertension documented in this encounter Care Teams Slot Floor Supervisor Relationship Specialty Start Date End Date Kraig Ching MD [address] [place] [address] PCP - General 07/10/16 Gautam Cope MD [address] [place] [address] Medical Oncologist/Rotor Blade Installer Medical Oncology 08/18/18 Tramaine Roe MD [address] [place] [address] Referring Physician Urology 08/18/18 Sukhwinder Uribe MD [address] [place] [address] Consulting Physician Urology 08/18/18 Shay Guillermo MD [address] [place] [address] Referring Physician Urology 08/18/18 Marsha Landis, RN Registered Nurse 11/17/18 Ilene Fragoso, RN [address] [facility] [address] [facility] [address] [place] [address] Vp Of Global Marketing 12/23/18 11/01/19 documented as of this encounter
--- OUTSIDE RECORDS SUMMARY | 2024-03-31 11:34 | XMS_ITS | Encounter Summary ---
Author Organization [facility] Address [address] [place] [address] Phone Care Team Providers Care Veterinary Medical Officer Name Role Phone Kraig Ching MD Primary Care Provider Gautam Cope MD Unavailable Tramaine Roe MD Unavailable [phone] Sukhwinder Uribe MD Unavailable [phone] Shay Guillermo MD Unavailable Marsha Landis RN Unavailable Unavailab le Encounter Details Date Type Department Care Team (Late st Contact Info) Description 12/06/2018 Orders Only [facility] [address] 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 Author CCM Chronic Pain Care Plan Chronic Care Management No change(03/23 1:47 PM OPTICAL GLASS ETCHER) No Ingrid Oden, RN Note: Problem: Chronic [...] 06/2018 documented in this encounter Care Teams Veterinary Medical Officer Relationship Specialty Start Date End Date Kraig Ching MD [address] [place] [address] PCP - General 07/10/16 Gautam Cope MD [address] [place] [address] Medical Oncologist/Grill Attendant Medical Oncology 08/18/18 Tramaine Roe MD [address] [place] [address] Referring Physician Urology 08/18/18 Sukhwinder Uribe MD [address] [place] [address] Consulting Physician Urology 08/18/18 Shay Guillermo MD [address] [place] [address] Referring Physician Urology 08/18/18 Marsha Landis, RN Registered Nurse 11/17/18 documented as of this encounter
--- OUTSIDE RECORDS SUMMARY | 2024-03-31 11:34 | XMS_ITS | Encounter Summary ---
Author Organization [facility] Healthcare Address [address] [place] [address] Care Team Providers Care Administrative Supervisor Name Role Phone Kraig Ching MD Primary Care Provider [phone] Gautam Cope MD Unavailable Tramaine Roe MD Unavailable Sukhwinder Uribe MD Unavailable [phone] Shay Guillermo MD Unavailable [phone] Marsha Landis RN Unavailable Unavailab le Encounter Details Date Type Department Care Team (Late st Contact Info) Description 11/17/2018 6:15 PM CDT Lab [address] [address] Social History Tobacco Use Types Packs/Day Years Used Date Smoking Tobacco: Former Smokeless Tobacco: Never Comments:Smoking History Pac ks/day: 10 Cigarettes Alcohol Use Standard Drinks/Week Comments Yes 0 (1 standard drink = 0.6 oz pur e alcohol) Occasional glass of wine. Sex and Gender Information Value Date Recorded Sex Assigned at Not on file Legal Sex Male 4:46 PM NATURAL RESOURCES FACULTY MEMBER Gender Identity Not on file Sexual Orientation Not on file documented as of this encounter Plan of Treatment Not on file documented as of this encounter Goals Goal Patient Goal Type Associated Problems Recent Progress Patient-Stated? Author CCM Chronic Pain Care Plan Chronic Care Management No change(03/23 1:47 PM NATURAL RESOURCES FACULTY MEMBER) No Ingrid Oden, RN Note: Problem: Chronic Pain Goals: 1. Minimize further functional decline 2. Maximize quality of life 3. Control pain Strategies: - Activity/exercise program recommendation - Conservative stepwise pain medicine strategy with multi-disciplinary approach - Recommend healthy lifestyle strategies and compensatory methods as needed documented as of this encounter Visit Diagnoses Not on filedocumented in this encounter Care Teams Administrative Supervisor Relationship Specialty Start Date End Date Kraig Ching MD [address] [place] [address] PCP - General 07/10/16 Gautam Cope MD [address] [place] [address] Medical Oncologist/Diesel Crane Operator Medical Oncology 08/18/18 Tramaine Roe MD [address] [place] [address] Referring Physician Urology 08/18/18 Sukhwinder Uribe MD [address] [place] [address] Consulting Physician Urology 08/18/18 Shay Guillermo MD [address] [place] [address] Referring Physician Urology 08/18/18 Marsha Landis, RN Registered Nurse 11/17/18 documented as of this encounter
--- OUTSIDE RECORDS SUMMARY | 2024-03-31 11:34 | XMS_ITS | Encounter Summary ---
Author Organization [facility] Address [address] [place] [address] Phone Care Team Providers Care Manager Of Distribution Name Role Phone Kraig Ching MD Primary Care Provider [phone] Gautam Cope MD Unavailable Tramaine Roe MD Unavailable [phone] Sukhwinder Uribe MD Unavailable [phone] Shay Guillermo MD Unavailable [phone] Marsha Landis RN Unavailable Unavailab le Encounter Details Date Type Department Care Team (Late st Contact Info) Description 12/13/2018 Orders Only [facility] Oncology [address] [facility] 7th [place] [address] [place] [address] Muna Saleem RN Social History Tobacco Use [...] on file 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 Author CCM Chronic Pain Care Plan Chronic Care Management No change(03/23 1:47 PM SPLICING MACHINE OPERATOR AUTOMATIC) No Ingrid Oden, SHEA Note: Problem: Chronic Pain Goals: 1. Minimize further functional decline 2. Maximize quality of life 3. Control pain Strategies: - Activity/exercise program recommendation - Conservative stepwise pain medicine strategy with multi-disciplinary approach - Recommend healthy lifestyle strategies and compensatory methods as needed documented as of this encounter Visit Diagnoses Not on filedocumented in this encounter Care Teams Manager Of Distribution Relationship Specialty Start Date End Date Kraig Ching MD [address] [place] [address] PCP - General 07/10/16 Gautam Cope MD [address] [place] [address] Medical Oncologist/Interior Design Instructor Medical Oncology 08/18/18 Tramaine Roe MD [address] [place] [address] Referring Physician Urology 08/18/18 Sukhwinder Uribe MD [address] [place] [address] Consulting Physician Urology 08/18/18 Shay Guillermo MD [address] [place] [address] Referring Physician Urology 08/18/18 Marsha Landis, RN Registered Nurse 11/17/18 documented as of this encounter
--- OUTSIDE RECORDS SUMMARY | 2024-03-31 11:34 | XMS_ITS | Encounter Summary ---
Author Organization [facility] Healthcare Address [address] [place] [address] Care Team Providers Care Cellular Plastics Cutter Name Role Phone Kraig Ching MD Primary Care Provider [phone] Gautam Cope MD Unavailable Tramaine Roe MD Unavailable [phone] Sukhwinder Uribe MD Unavailable [phone] Shay Guillermo MD Unavailable [phone] Marsha Lnadis RN Unavailable Unavailab Ilene Kaur RN Unavailable [phone] Reason for Visit * Reason Onset Date Comments Pre-Surgical Call 01/13/2019 Encounter Details Date Type Department Care Team (Late st Contact Info) Description 01/13/[address] 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 Minimize further functional decline 2. Maximize quality of life 3. Control pain Strategies: - Activity/exercise program recommendation - Conservative stepwise pain medicine strategy with multi-disciplinary approach - Recommend healthy lifestyle strategies and compensatory methods as needed documented as of this encounter Visit Diagnoses Not on filedocumented in this encounter Care Teams Cellular Plastics Cutter Relationship Specialty Start Date End Date Kraig Ching MD [address] [facility] [address] [place] [address] PCP - General 07/10/16 Gautam Cope MD [address] [facility] [facility] [facility] [address] [place] [address] Medical Oncologist/Truck Bracer Medical Oncology 08/18/18 Tramaine Roe MD [address] [facility] [address] [place] [address] Referring Physician Urology 08/18/18 Sukhwinder Uribe MD [address] [facility] [address] [place] [address] Consulting Physician Urology 08/18/18 Shay Guillermo MD [address] [facility] [address] [place] [address] Referring Physician Urology 08/18/18 Marsha Landis, RN Registered Nurse 11/17/18 Ilene Fragoso, SHEA [address] [facility] [address] [place] [address] Carbon Cleaner 12/23/18 11/01/19 documented as of this encounter
--- OUTSIDE RECORDS SUMMARY | 2024-03-31 11:34 | XMS_ITS | Encounter Summary ---
Author Organization [facility] Address [address] [place] [address] Phone Care Team Providers Care Merchandise Support Associate Name Role Phone Kraig Ching MD Primary Care Provider [phone] Gautam Cope MD Unavailable Tramaine Reo MD Unavailable [phone] Sukhwinder Uribe MD Unavailable [phone] Shay Guillermo MD Unavailable [phone] Marsha Landis RN Unavailable Unavailab le Reason for Visit * Reason Onset Date Comments pain after injection 12/16/2018 Encounter Details Date Type Department Care Team (Late st Contact Info) Description 12/16/2018 Documentation [facility] Oncology [address] [facility] 7th [place] [address] [place] [address] Muna Saleem RN pain after injection Social [...] on file 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 Minimize further functional decline 2. Maximize quality of life 3. Control pain Strategies: - Activity/exercise program recommendation - Conservative stepwise pain medicine strategy with multi-disciplinary approach - Recommend healthy lifestyle strategies and compensatory methods as needed documented as of this encounter Visit Diagnoses Not on filedocumented in this encounter Care Teams Merchandise Support Associate Relationship Specialty Start Date End Date Kraig Ching MD [address] [facility] [address] [place] [address] PCP - General 07/10/16 Gautam Cope MD [address] [facility] [address] [place] [address] Medical Oncologist/Belt Sander Medical Oncology 08/18/18 Tramaine Roe MD [address] [facility] [address] [place] [address] Referring Physician Urology 08/18/18 Sukhwinder Uribe MD [address] [facility] [address] [place] [address] Consulting Physician Urology 08/18/18 Shay Guillermo MD [address] [facility] [address] [place] [address] Referring Physician Urology 08/18/18 Marsha Landis, RN Registered Nurse 11/17/18 documented as of this encounter
--- OUTSIDE RECORDS SUMMARY | 2024-03-31 11:34 | XMS_ITS | Encounter Summary ---
Author Organization [facility] Address [address] [place] [address] Phone Care Team Providers Care Field Pipe Lines Supervisor Name Role Phone Mike Lerner MD Primary Care Provider [phone] Gautam Cope MD Unavailable Tramaine Roe MD Unavailable [phone] Sukhwinder Uribe MD Unavailable [phone] Shay Guillermo MD Unavailable [phone] Marsha Landis RN Unavailable Unavailab le Reason for Visit * Episode Based Medications (Routine) - Authorized Specialty Diagnoses / Procedures Referred By Saleem narvaez Referred To Contact Oncology Diagnoses Prostate cancer (HCC) Procedures MD LEUPROLIDE ACETATE SUSPNSION Leuprolide Every 3 Months - Prostate Gautam Cope MD [address] [facility] [address] [place] [address] Phone: tel: fax: [facility] - [facility] [address] [facility] [address] [place] [address] Referral ID Status Reason Start Date Expiration Date V isits Requested Visits Authorized [id number] Authorized 09/06/2018 07/11/2024 1 50 Encounter Details Date Type Department Care Team (Late st Contact Info) Description 12/13/2018 10:15 AM CDT Office Visit [facility] Oncology [address] [place] [address] 7th [place] [address] [place] [id number] Gautam Cope MD [address] [facility] [address] [place] [address] Prostate cancer (CMS/HCC) Social History Tobacco Use [...] file Legal Sex Male 4:46 PM INSURANCE APPLICATION INVESTIGATOR Gender Identity Not on file Sexual [...] - 12/13/2018 03:49 PM Gautam Cope M.D. economic development specialist GLORIA/lul cc: MD Nena [place] [address] MIKE LERNER M.D. [facility] [address] [facility], [address] [place] [address] / documented in this encounter Plan of Treatment Not on file documented as of this encounter Goals Goal Patient Goal Type Associated Problems Recent Progress Patient-Stated? Author CCM Chronic Pain Care Plan Chronic Care Management No change(03/23 1:47 PM INSURANCE APPLICATION INVESTIGATOR) No Ingrid Oden RN Note: Problem: Chronic [...] 019 documented in this encounter Care Teams Field Pipe Lines Supervisor Relationship Specialty Start Date End Date Mike Lerner MD [address] [facility] [address] [place] [address] PCP - General 07/10/16 [place] [address] [place] [address] [address] [place], [place] [id number] Medical Oncologist/Sort Manager Medical Oncology 08/18/18 Tramaine Roe MD [address] [facility] [address] [place], [place] [id number] Referring Physician Urology 08/18/18 Sukhwinder Uribe MD [address] [facility] [address] [place] [address] Consulting Physician Urology 08/18/18 Shay Guillermo MD [address] [facility] [address] [place] [address] Referring Physician Urology 08/18/18 Marsha Landis RN Registered Nurse 11/17/18 documented as of this encounter
--- OUTSIDE RECORDS SUMMARY | 2024-03-31 11:34 | XMS_ITS | Encounter Summary ---
Author Organization [facility] Address [address] [place] [address] Phone Care Team Providers Care Acoustical Logging Engineer Name Role Phone Kraig Ching MD Primary Care Provider [phone] Gautam Cope MD Unavailable Tramaine Roe MD Unavailable [phone] Sukhwinder Uribe MD Unavailable Shay Guillermo MD Unavailable [phone] Marsha Landis RN Unavailable Unavailab Ilene Kaur RN Unavailable [phone] Encounter Details Date Type Department Care Team (Late st Contact Info) Description 03/01/2019 10:45 AM TEST TUBE MAKER Office Visit [facility] Nephrology [facility] Advanced Medicine 5th [place] [address] [place] [address] Stage 3 chronic kidney disease [...] on file Legal Sex Male 4:46 PM TEST TUBE MAKER Gender Identity Not on file Sexual Orientation Not on file documented as of this encounter Last Filed Vital Signs Vital Sign Reading Time Taken Comments Blood Pressure 163/76 03/01/2019 11:22 AM TEST TUBE MAKER Pulse 67 03/01/2019 11:22 AM TEST TUBE MAKER Temperature 36.5 ??C (97.7 ??F) 03/01/2019 11:[address] Respiratory Rate - - Oxygen Saturation - - Inhaled Oxygen Concentration - - Weight 101.6 kg (224 lb) 03/01/2019 11:22 AM TEST TUBE MAKER Height - - Body Mass Index 31.69 02/17/2019 1:58 PM TEST TUBE MAKER documented in this encounter Patient Instructions * Patient Instructions* Marc Reynolds MD - 03/01/2019 10:45 AM TEST TUBE MAKER Please increase your chlorthalidone to 25mg daily. Measure your blood pressure daily. TUBE MAKER TUBE MAKER documented in this encounter Progress Notes * [...] EGD 10/2017 9. Prostate Cancer in 1999, [id number], status post radical prostatectomy with subsequent external [...] sounds normal. No masses. SKIN: No rash DEPENDENCY DIRECTOR: Alert and oriented x3. No focal motor [...] 17.2 g/dL Final Comment: Testing performed by: [facility], [address] [place] [id number] 11/17/2018 12.6 (L) 13.0 - 17.5 g/dL [...] follow up in 6 months with labs. [facility] Nephrology Cosigned by Lin Guerrero MD at 04/08/2019 12:04 AM TEST TUBE MAKER TUBE MAKER TUBE MAKER Associated attestation - Lin Guerrero MD - 04/08/2019 12:04 AM TEST TUBE MAKER I have seen and examined the patient [...] to monitor diabetes and kidney status, etc. [facility] Chronic Pain Care Plan Chronic Care Management No change(03/23 1:47 PM TEST TUBE MAKER) No Ingrid Oden RN Note: Problem: [...] (HCC) documented in this encounter Care Teams Acoustical Logging Engineer Relationship Specialty Start Date End Date Kraig Ching MD [address] [facility] [address] [place] [address] PCP - General 07/10/16 Gautam Cope MD [address] [facility] [address] [place], [place] [id number] Medical Oncologist/Commissioning Manager Medical Oncology 08/18/18 Tramaine Roe MD [address] [facility] [address] [place] [address] Referring Physician Urology 08/18/18 Sukhwinder Uribe MD [address] [facility] [address] [place] [address] Consulting Physician Urology 08/18/18 Shay Guillermo MD [address] [facility] [address] [place] [address] Referring Physician Urology 08/18/18 Marsha Landis RN Registered Nurse 11/17/18 Ilene Fragoso, RN [address] [place] [address] [address] [place] [address] Outside Sales Account Representative 12/23/18 11/01/19 documented as of this encounter
--- OUTSIDE RECORDS SUMMARY | 2024-03-31 11:34 | XMS_ITS | Encounter Summary ---
Author Organization [facility] Address [address] [place] [address] Care Team Providers Care Fitness Worker Name Role Phone Kraig Ching MD Primary Care Provider [phone] Gautam Cope MD Unavailable Tramaine Roe MD Unavailable [phone] Sukhwinder Uribe MD Unavailable [phone] Shay Guillermo MD Unavailable [phone] Marsha Landis RN Unavailable Unavailab Ilene Kaur RN Unavailable [phone] Reason for Visit * Reason Onset Date Comments CALL BACK 01/10/2019 Encounter Details Date Type Department Care Team (Late st Contact Info) Description 01/10/2019 Telephone [facility] [address] [facility] Advanced Medicine [address] [place], [place] [id number] Maru Arreola MD PhD [address] [facility] [id number] [place] [address] CALL BACK Social History Tobacco Use Types [...] on file Legal Sex Male 4:46 PM WRAPPER SELECTOR Gender Identity Not on file Sexual Orientation [...] Chronic Care Management No change(03/23 1:47 PM WRAPPER SELECTOR) No Ingrid Oden, RN Note: Problem: Chronic Pain Goals: 1. Minimize further functional decline 2. Maximize quality of life 3. Control pain Strategies: - Activity/exercise program recommendation - Conservative stepwise pain medicine strategy with multi-disciplinary approach - Recommend healthy lifestyle strategies and compensatory methods as needed documented as of this encounter Visit Diagnoses Not on filedocumented in this encounter Care Teams Fitness Worker Relationship Specialty Start Date End Date Kraig Ching MD [address] [place] [address] PCP - General 07/10/16 Gautam Cope MD [address] [place] [address] Medical Oncologist/Field Placement Director Medical Oncology 08/18/18 Tramaine Roe MD [address] [place] [address] Referring Physician Urology 08/18/18 Sukhwinder Uribe MD [address] [place] [address] Consulting Physician Urology 08/18/18 Shay Guillermo MD [address] [place] [address] Referring Physician Urology 08/18/18 Marsha Landis, RN Registered Nurse 11/17/18 Ilene Fragoso, RN [address] [facility] [address] [place] [address] Information Specialist 12/23/18 11/01/19 documented as of this encounter
--- OUTSIDE RECORDS SUMMARY | 2024-03-31 11:34 | XMS_ITS | Encounter Summary ---
Author Organization [facility] Address [address] [place] [address] Phone Care Team Providers Care Wind Farm Designer Name Role Phone Kraig Ching MD Primary Care Provider [phone] Gautam Cope MD Unavailable Tramaine Roe MD Unavailable [phone] Sukhwinder Uribe MD Unavailable Shay Guillermo MD Unavailable [phone] Marsha Landis RN Unavailable Unavailab Ilene Kaur RN Unavailable [phone] Encounter Details Date Type Department Care Team (Late st Contact Info) Description 02/16/2019 Orders Only [facility] Nephrology [address] [facility] Advanced Medicine 5th [place] [address] [place] [address] Lin Guerrero MD [address] [facility] [address] [place], [place] [id number] CRD (chronic renal disease), stage III (CMS/HCC) [...] on file Legal Sex Male 4:46 PM TENNIS BALL COVERER HAND Gender Identity Not on file Sexual [...] Chronic Care Management No change(03/23 1:47 PM TENNIS BALL COVERER HAND) No Ingrid Oden, RN Note: Problem: Chronic Pain Goals: 1. Minimize further functional decline 2. Maximize quality of life 3. Control pain Strategies: - Activity/exercise program recommendation - Conservative stepwise pain medicine strategy with multi-disciplinary approach - Recommend healthy lifestyle strategies and compensatory methods as needed documented as of this encounter Results * (ABNORMAL) CBC with auto differential (02/17/2019 3:07 PM TENNIS BALL COVERER HAND) [facility] WBC 11.2(H) 3.8 - 9.9 K/cumm [facility] Hgb 12.0(L) 13.0 - 17.5 g/dL [facility] Hct 36.7(L) 38.9 - 50.3 % [facility] Plt 338 150 - 400 K/cumm [facility] MPV 9.6 9.1 - 12.3 fL [facility] RBC 4.00(L) 4.30 - 5.80 M/cumm [facility] MCV 91.8 81.3 - 96.4 fL [facility] MCH 30.0 27.1 - 33.3 pg [facility] MCHC 32.7 32.3 - 35.7 g/dL [facility] RDW CV 13.9 11.1 - 14.9 % [facility] RDW SD 46.9 35.7 - 48.1 fL [facility] NRBC abs 0.00 0.00 - 0.01 K/cumm [facility] Blood specimen (specimen) 02/17/2019 3:07 PM TENNIS BALL COVERER HAND 02/17/2019 3:16 PM TENNIS BALL COVERER HAND us Lin Guerrero MD LAB BLOOD ORDERABLES Final Resul t [facility] One [facility] Department [place] [address] * (ABNORMAL) Renal function panel (02/17/2019 3:07 PM TENNIS BALL COVERER HAND) [facility] Sodium 141 135 - 145 mmol/L [facility] Potassium, pl 4.7 3.3 - 4.9 mmol/L [facility] Chloride 103 97 - 110 mmol/L [facility] CO2 28 22 - 32 mmol/L [facility] Anion gap 10 2 - 15 mmol/L [facility] BUN 34(H) 8 - 25 mg/dL [facility] Creatinine 1.99(H) 0.80 - 1.30 mg/dL [facility] Glucose 202(H) 70 - 199 mg/dL [facility] Comment: Interpretive Data Fasting glucose >/= [...] 2017. Calcium 9.1 8.5 - 10.3 mg/dL [facility] Phosphorus, pl 3.1 2.3 - 4.5 mg/dL [facility] Albumin 4.1 3.5 - 5.0 g/dL [facility] Blood specimen (specimen) 02/17/2019 3:07 PM TENNIS BALL COVERER HAND 02/17/2019 3:16 PM TENNIS BALL COVERER HAND us Lin Guerrero MD LAB BLOOD ORDERABLES Final Resul t [facility] One [facility] [place] [address] documented in this encounter Visit Diagnoses Diagnosis CRD (chronic renal disease), stage III (HCC)- Primary Chronic kidney disease, Stage III (moderate) Essential hypertension Unspecified essential hypertension documented in this encounter Care Teams Wind Farm Designer Relationship Specialty Start Date End Date Kraig Ching MD [address] [facility] [address] [place] [address] PCP - General 07/10/16 Gautam Cope MD [address] [facility] [address] [place] [address] Medical Oncologist/Scrub Technician Medical Oncology 08/18/18 Tramaine Roe MD [address] [facility] [address] [place] [address] Referring Physician Urology 08/18/18 Sukhwinder Uribe MD [address] [facility] [address] [place] [address] Consulting Physician Urology 08/18/18 Shay Guillermo MD [address] [facility] [address] [place] [address] Referring Physician Urology 08/18/18 Marsha Landis RN Registered Nurse 11/17/18 Ilene Fragoso, RN [address] [place] [address] [address] [place] [address] Criminal Defense Lawyer 12/23/18 11/01/19 documented as of this encounter
--- OUTSIDE RECORDS SUMMARY | 2024-03-31 11:34 | XMS_ITS | Encounter Summary ---
Author Organization [facility] Healthcare Address [address] [place] [address] Care Team Providers Care Hydrometeorology Teacher Name Role Phone Kraig Ching MD Primary Care Provider [phone] Gautam Cope MD Unavailable Tramaine Roe MD Unavailable [phone] Sukhwinder Uribe MD Unavailable [phone] Shay Guillermo MD Unavailable [phone] Marsha Landis RN Unavailable Unavailab Ilene Kaur RN Unavailable [phone] Encounter Details Date Type Department Care Team (Late st Contact Info) Description 01/17/2019 6:10 PM CDT Lab [address] [address] Social History Tobacco Use Types Packs/Day Years [...] file Legal Sex Male 4:46 PM MANAGER CORPORATE STRATEGY Gender Identity Not on file Sexual Orientation [...] diabetes and kidney status, etc. [facility] Chronic Pain Care Plan Chronic Care Management No change(03/23 1:47 PM MANAGER CORPORATE STRATEGY) No Ingrid Oden, SHEA Note: Problem: Chronic Pain Goals: 1. Minimize further functional decline 2. Maximize quality of life 3. Control pain Strategies: - Activity/exercise program recommendation - Conservative stepwise pain medicine strategy with multi-disciplinary approach - Recommend healthy lifestyle strategies and compensatory methods as needed documented as of this encounter Visit Diagnoses Not on filedocumented in this encounter Care Teams Hydrometeorology Teacher Relationship Specialty Start Date End Date Kraig Ching MD [address] [facility] [address] [place] [address] PCP - General 07/10/16 Gautam Cope MD [address] [facility] [address] [place] [address] Medical Oncologist/Window Shade Cloth Sewer Medical Oncology 08/18/18 Tramaine Roe MD [address] [facility] [address] [place] [address] Referring Physician Urology 08/18/18 Sukhwinder Uribe MD [address] [facility] [address] [place] [address] Consulting Physician Urology 08/18/18 Shay Guillermo MD [address] [facility] [address] [place] [address] Referring Physician Urology 08/18/18 Marsha Landis, RN Registered Nurse 11/17/18 Ilene Fragoso, RN [address] [facility] [address] [place] [address] Feature Writer 12/23/18 11/01/19 documented as of this encounter
--- OUTSIDE RECORDS SUMMARY | 2024-03-31 11:35 | XMS_ITS | Encounter Summary ---
Author Organization [facility] Address [address] [facility] [address] [place] [address] Care Team Providers Care Fiber Technologist Name Role Phone Kraig Ching MD Primary Care Provider Gautam Cope MD Unavailable Tramaine Roe MD Unavailable [phone] Sukhwinder Uribe MD Unavailable [phone] Shay Guillermo MD Unavailable [phone] Reason for Visit * Reason Onset Date Comments Jeane- Patient Update 09/16/2018 Encounter Details Date Type Department Care Team (Late st Contact Info) Description 09/16/2018 Telephone [facility] [address] [facility] [address] [place] [address] Kraig Ching MD [address] [facility] [address] [place] [address] Jeane- Patient Update Social History [...] on file Legal Sex Male 4:46 PM APPOINTMENT SPECIALIST Gender Identity Not on file Sexual [...] Chronic Care Management No change(03/23 1:47 PM APPOINTMENT SPECIALIST) No Ingrid Oden, SHEA Note: Problem: Chronic Pain Goals: 1. Minimize further functional decline 2. Maximize quality of life 3. Control pain Strategies: - Activity/exercise program recommendation - Conservative stepwise pain medicine strategy with multi-disciplinary approach - Recommend healthy lifestyle strategies and compensatory methods as needed documented as of this encounter Visit Diagnoses Not on filedocumented in this encounter Care Teams Fiber Technologist Relationship Specialty Start Date End Date Kraig Ching MD [address] [place] [address] PCP - General 07/10/16 Gautam Cope MD [address] [place] [address] Medical Oncologist/Cellophaner Medical Oncology 08/18/18 Tramaine Roe MD [address] [place] [address] Referring Physician Urology 08/18/18 Sukhwinder Uribe MD [address] [place] [address] Consulting Physician Urology 08/18/18 Shay Guillermo MD [address] [place] [address] Referring Physician Urology 08/18/18 documented as of this encounter
--- OUTSIDE RECORDS SUMMARY | 2024-03-31 11:35 | XMS_ITS | Encounter Summary ---
Author Organization [facility] Address [address] [place] [address] Phone Care Team Providers Care Athletic Coach Name Role Phone Kraig Ching MD Primary Care Provider [phone] Gautam Cope MD Unavailable Tramaine Roe MD Unavailable [phone] Sukhwinder Uribe MD Unavailable [phone] Shay Guillermo MD Unavailable [phone] Reason for Visit * Reason Onset Date Comments Prostate Cancer 11/02/2018 soy products Encounter Details Date Type Department Care Team (Late st Contact Info) Description 11/02/2018 Documentation [facility] Oncology [address] [facility] 7th [place] [address] [place] [address] Muna Saleem RN Prostate Cancer (soy products) [...] file Legal Sex Male 4:46 PM ROLL COVERER Gender Identity Not on file Sexual [...] Care Management No change(03/23 1:47 PM ROLL COVERER) No Ingrid Oden, SHEA Note: Problem: Chronic Pain Goals: 1. Minimize further functional decline 2. Maximize quality of life 3. Control pain Strategies: - Activity/exercise program recommendation - Conservative stepwise pain medicine strategy with multi-disciplinary approach - Recommend healthy lifestyle strategies and compensatory methods as needed documented as of this encounter Visit Diagnoses Not on filedocumented in this encounter Care Teams Athletic Coach Relationship Specialty Start Date End Date Kraig Ching MD [address] [facility] [address] [place] [address] PCP - General 07/10/16 Gautam Cope MD [address] [facility] [address] [place] [address] Medical Oncologist/Fur Sorter Medical Oncology 08/18/18 [place] [address] [place] [address] [address] [place] [address] Referring Physician Urology 08/18/18 Sukhwinder Uribe MD [address] [facility] [address] [place] [address] Consulting Physician Urology 08/18/18 Shay Guillermo MD [address] [facility] [address] [place] [address] Referring Physician Urology 08/18/18 documented as of this encounter
--- OUTSIDE RECORDS SUMMARY | 2024-03-31 11:35 | XMS_ITS | Encounter Summary ---
Author Organization [facility] [employer] [facility] Address [address] [place] [address] Phone Care Team Providers Care Teradata Developer Name Role Phone Kraig Ching MD Primary Care Provider [phone] Gautam Cope MD Unavailable Tramaine Roe MD Unavailable [phone] Sukhwinder Uribe MD Unavailable [phone] Shay Guillermo MD Unavailable [phone] Reason for Visit * Reason Comments Injections * Episode Based Medications (Routine) - Authorized Specialty Diagnoses / Procedures Referred By Saleem t Referred To Contact Oncology Diagnoses Prostate cancer (HCC) Procedures IA LEUPROLIDE ACETATE SUSPNSION Leuprolide Every 3 Months - Prostate Gautam Cope MD [address] [facility] [address] [place] [address] Phone: tel: fax: [facility] - Infusion [address] [facility] [address] [place] [address] Referral ID Status Reason Start Date Expiration Date V isits Requested Visits Authorized [id number] Authorized 09/06/2018 07/11/2024 1 50 Encounter Details Date Type Department Care Team (Late st Contact Info) Description 09/13/2018 9:00 AM CDT Infusion [facility] Oncology [address] [facility] Advanced Medicine 7th [place] [address] Prostate cancer (CMS/HCC) (Primary Dx) [...] on file Legal Sex Male 4:46 PM CARDING DOUBLER Gender Identity Not on file Sexual Orientation [...] 07/2018 documented in this encounter Care Teams Teradata Developer Relationship Specialty Start Date End Date Kraig Ching MD [address] [place] [address] PCP - General 07/10/16 Gautam Cope MD [address] [place] [address] Medical Oncologist/Evening Or Night Nurse Supervisor Medical Oncology 08/18/18 Tramaine Roe MD [address] [place] [address] Referring Physician Urology 08/18/18 Sukhwinder Uribe MD [address] [place] [address] Consulting Physician Urology 08/18/18 Shay Guillermo MD [address] [place] [address] Referring Physician Urology 08/18/18 documented as of this encounter
--- OUTSIDE RECORDS SUMMARY | 2024-03-31 11:35 | XMS_ITS | Encounter Summary ---
Author Organization [facility] Care Team Providers Care City Collector Name Role Phone Kraig Ching MD Primary Care Provider [phone] Gautam Cope MD Unavailable Tramaine Roe MD Unavailable [phone] Sukhwinder Uribe MD Unavailable [phone] Shay Guillermo MD Unavailable [phone] Encounter Details Date Type Department Care Team [...] filedocumented in this encounter Care Teams City Collector Relationship Specialty Start Date End Date Kraig Ching MD [email or web address] [place], [place] [id number] PCP - General 07/10/16 Gautam Cope MD [address] [place], [place] [id number] Medical Oncologist/Microbiology Lab Assistant Medical Oncology 08/18/18 Tramaine Roe MD [address] [facility] [address] [place] [address] Referring Physician Urology 08/18/18 Sukhwinder Uribe MD [address] [facility] [address] [place] [address] Consulting Physician Urology 08/18/18 Shay Guillermo MD [address] [facility] [address] [place] [address] Referring Physician Urology 08/18/18 documented as of this encounter
--- OUTSIDE RECORDS SUMMARY | 2024-03-31 11:35 | XMS_ITS | Encounter Summary ---
Author Organization [facility] Healthcare Address [address] [place] [address] Care Team Providers Care Civil Service Clerk Name Role Phone Kraig Ching MD Primary Care Provider [phone] Gautam Cope MD Unavailable Tramaine Roe MD Unavailable [phone] Sukhwinder Uribe MD Unavailable Shay Guillermo MD Unavailable [phone] Reason for Referral * Consultation (Routine) - Closed Specialty Diagnoses / Procedures Referred By Saleem narvaez Referred To Contact Pain Management Diagnoses Sciatica, left side Kraig Ching MD Phone: tel: fax: [facility] Referral ID Status Reason Start Date Expiration Date V isits Requested Visits Authorized [id number] Closed Specialty Services Required 07/21/2018 01/30/2020 6 6 Question Answer Please select the performing region: [facility] [152] # of visits: 6 Comments [...] side Kraig Ching MD Phone: tel: fax: [facility] Referral ID Status Reason Start Date Expiration Date V isits Requested Visits Authorized [id number] Closed Specialty Services Required 07/21/2018 01/30/2020 6 6 Encounter Details Date Type Department Care Team (Latest Contact Info) Description 09/09/2018 9:13 AM CDT - 09/09/2018 11:59 PM CDT Hospital Encounter [facility] at the [facility] [address] [facility] [address] [place], [place] [id number] Kraig Ching MD [address] [facility] [address] [place] [address] Maru Arreola MD PhD [address] [facility] [phone] [place] [address] Spinal stenosis of lumbar region with neurogenic [...] file 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 Gender Identity Not on file Sexual Orientation [...] 09/09/2018 10:54 AM CDT PAIN [facility] ([facility]) DISCHARGE INSTRUCTIONS MEDICATIONS: [x] Continue your current [...] DIET: [x] Resume normal diet [] See [facility] Post Discharge Procedure Information Sheet ACTIVITY: [x] Resume normal activity [] See [facility] Post Discharge Procedure Information Sheet REFERRALS: Physical Therapy [] [facility] ([phone]) [] GMI (Graded Motor Imagery) [] [facility] ([phone]) [x] Other: Physical therapy order Behavior Medicine [] Pain Psychologist, [facility] Pain Psychology Please call to schedule appointment [phone] or [phone] Diagnostic Test(s): EDUCATION provided on the following: [...] INSTRUCTIONS before your next procedure: [x] See [facility] Pre-Procedure Information Sheet [] Do not eat for six (6) hours or drink for three (3) hours before the time/date of the procedure. [] Inquire with your prescribing provider if ok to hold blood thinner for days before procedure. [] Blood work required 2 hours before procedure: [x] Stonemason Apprentice needed for next procedure Patient provided information and repeated back with understanding. If you need to reach us: For any questions about your procedure, please call the Pain Management Center [phone] (M-F) (8am-4pm) If you need urgent attention after 5 pm and weekends: Call the [facility] Frame Expander at [phone] and ask for the Pain Service doctor physician non invasive cardiologist. Patient Education Gabapentin (By mouth) Gabapentin (nfo-i-MAV-tin) Treats seizures and pain caused by shingles. [...] pharmacist before using any other medicine, including buxg-muq-vqkoxnj medicines, vitamins, and herbal products. ?? Some [...] may report side effects to FDA at 6-315-LLU-5715 ?? 2016 iCreate Information is for End User's use only and may not be sold, redistributed or otherwise used for commercial purposes. The above information is an educational adviser only. It is not intended as medical [...] file Gets together: Not on file Attends mu-ism service: Not on file Active member of [...] Arreola MD PhD Instructor of Anesthesiology [facility], [facility] 09/09/2018 10:03 AM documented [...] sciatica documented in this encounter Care Teams Civil Service Clerk Relationship Specialty Start Date End Date Kraig Ching MD [address] [place] [address] PCP - General 07/10/16 Gautam Cope MD [address] [place] [address] Medical Oncologist/Spark Tester Medical Oncology 08/18/18 Tramaine Roe MD [address] [place] [address] Referring Physician Urology 08/18/18 Sukhwinder Uribe MD [address] [place] [address] Consulting Physician Urology 08/18/18 Shay Guillermo MD [address] [place] [address] Referring Physician Urology 08/18/18 documented as of this encounter
--- OUTSIDE RECORDS SUMMARY | 2024-03-31 11:35 | XMS_ITS | Encounter Summary ---
Author Organization [facility] Address [address] [place] [address] Phone Care Team Providers Care Sort Manager Name Role Phone Kraig Ching MD Primary Care Provider [phone] Gautam Cope MD Unavailable Tramaine Roe MD Unavailable [phone] Sukhwinder Uribe MD Unavailable [phone] Shay Guillermo MD Unavailable [phone] Encounter Details Date Type Department Care Team (Late st Contact Info) Description 09/06/2018 Orders Only [facility] Oncology [address] 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 Gender Identity Not on file Sexual [...] 07/2018 documented in this encounter Care Teams Sort Manager Relationship Specialty Start Date End Date Kraig Ching MD [address] [place] [address] PCP - General 07/10/16 Gautam Cope MD [address] [facility] [address] [place] [address] Medical Oncologist/Account Receivable Associate Medical Oncology 08/18/18 Tramaine Roe MD [address] [place] [address] Referring Physician Urology 08/18/18 Sukhwinder Uribe MD [address] [facility] [address] [place] [address] Consulting Physician Urology 08/18/18 Shay Guillermo MD [address] [place] [address] Referring Physician Urology 08/18/18 documented as of this encounter
--- OUTSIDE RECORDS SUMMARY | 2024-03-31 11:35 | XMS_ITS | Encounter Summary ---
Author Organization [facility] Address [address] [place] [address] Phone Care Team Providers Care Flame Annealing Machine Setter Name Role Phone Mike Lerner MD Primary Care Provider [phone] Gautam Cope MD Unavailable Cruz Roe MD Unavailable [phone] Sukhwinder Uribe MD Unavailable Shay Guillermo MD Unavailable [phone] Encounter Details Date Type Department Care Team (Late st Contact Info) Description 10/18/2018 2:45 PM CDT Office Visit [facility] Oncology [address] [facility] Advanced Medicine 7th [place] [address] [place] [address] Gautam Cope MD [address] [facility] [address] [place], [place] [id number] Prostate cancer (CMS/HCC) (Primary Dx) Social History [...] on file 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 He was diagnosed originally [id number] when he presented with a PSA of 5.5, and a biopsy showed Gormania 3+4 disease. He was treated aradical prostatectomy in June 2007, showing Gormania 4+3 disease, with extracapsular extension and positive [...] - 10/18/2018 07:55 PM Gautam Cope M.D. chief steward/stewardess GLORIA/lul cc: CRUZ ROE MD [facility] [place] [address] MIKE LERNER M.D. [place] [address] [facility], [address] [place] [address] / documented in this encounter Plan of Treatment Not on file documented as of this encounter Goals Goal Patient Goal Type Associated Problems Recent Progress Patient-Stated? Author CCM Chronic Pain Care Plan Chronic Care Management No change(03/23 1:47 PM YOUTH TEACHER) No Ingrid Oden, SHEA Note: Problem: [...] Hgb A1C 8.5(H) 4.0 - 5.6 % [facility] Estimated Average Glucose 197 mg/dL [facility] Comment: The ADA recommends reporting an estimated Average Glucose (eAG) with all Hemoglobin A1c results using the equation derived from a study of 507 normal and diabetic adults. ??Minority populations were underrepresented and children were not included. ?? (Diabetes Care 31:5565-1597, 2007). ??The eAG is not equivalent to a fasting glucose. Blood specimen (specimen) 10/18/2018 1:53 PM CDT 10/18/2018 2:18 PM CDT us Gautam Cope MD LAB BLOOD ORDERABLES Final Resul t [facility] [place] [address] documented in this encounter Visit Diagnoses Diagnosis Prostate cancer (HCC)- Primary Malignant neoplasm of prostate documented in this encounter Orders Appointment Requests Count Last Ordered Date Fi rst Ordered Date [facility]IC APPOINTMENT REQUEST 1 019 documented in this encounter Care Teams Flame Annealing Machine Setter Relationship Specialty Start Date End Date Mike Lerner MD [address] [facility] [address] [place], [place] [id number] PCP - General 07/10/16 Gautam Cope MD [address] [facility] [address] [place] [address] Medical Oncologist/Reference Assistant Medical Oncology 08/18/18 Cruz Roe MD [address] [facility] [address] [place] [address] Referring Physician Urology 08/18/18 Sukhwinder Uribe MD [address] [facility] [address] [place] [address] Consulting Physician Urology 08/18/18 Shay Guillermo MD [address] [facility] [address] [place] [address] Referring Physician Urology 08/18/18 documented as of this encounter
--- OUTSIDE RECORDS SUMMARY | 2024-03-31 11:35 | XMS_ITS | Encounter Summary ---
Author Organization [facility] Address [address] [place] [address] Phone Care Team Providers Care Telephone Claims Representative Name Role Phone Mike Lerner MD Primary Care Provider [phone] Gautam Cope MD Unavailable Cruz Roe MD Unavailable [phone] Sukhwinder Uribe MD Unavailable [phone] Shay Guillermo MD Unavailable [phone] Reason for Referral * Diagnostic Imaging (Routine) - Closed Specialty Diagnoses / Procedures Referred By Saleem t Referred To Contact Radiology Diagnoses Prostate cancer (HCC) Procedures CT Chest Abdomen Pelvis WO Contrast Gautam Cope MD Phone: tel: fax: [address] [address] Referral ID Status Reason Start Date Expiration Date Visits Re quested Visits Authorized [id number] Closed 09/06/2018 03/17/2020 1 1 Reason for Visit * Consultation (Routine) - Authorized Specialty Diagnoses / Procedures Referred By Saleem narvaez Referred To Contact Oncology Diagnoses Prostate cancer (HCC) Cruz Roe MD [address] [facility] [address] [place] [address] Phone: tel: fax: Gautam Cope MD [address] [facility] [address] IM MEDICAL ONCOLOGY, [address] [place] [address] Phone: tel: fax: Referral ID Status Reason Start Date Expiration Date Visits Requested Visits Authorized [id number] Authorized Specialty Services Required 08/15/2018 04/11/2024 99 99 Encounter Details Date Type Department Care Team (Late st Contact Info) Description 09/06/2018 1:30 PM CDT Office Visit [facility] Oncology [address] [facility] Advanced Medicine 7th [place] [address] [place] [address] Gautam Cope MD [address] [facility] [address] [place] [address] Prostate cancer (CMS/HCC) Social History Tobacco Use Types Packs/Day Years Used Date Smoking Tobacco: Former Smokeless Tobacco: Former Comments:Smoking History Pac ks/day: 10 Cigarettes Alcohol Use Standard Drinks/Week Comments No 0 (1 standard drink = 0.6 oz pur e alcohol) quit 09/2017 Sex and Gender Information Value Date Recorded Sex Assigned at Not on file 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 He was diagnosed with prostate cancer in 2000 when he presented with a PSA of 5.5. Biopsy at that time revealed a Viviana 3 + 4 disease, with concern of perineural invasion. 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 He does endorse having occasional pain radiating down his legs after standing up for about 20minutes. He is scheduled to see Pain Management on 09/09/[address] Arreola. PAST MEDICAL HISTORY: 1. Paroxysmal atrial fibrillation. 2. Type 2 diabetes. 3. Prostate cancer. 4. Hyperlipidemia. 5. Hypertension. 6. Bleeding ulcer. SOCIAL HISTORY: He lives in [place], [place]. He is retired. 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 He is [...] hyperlipidemia, and prostate adenocarcinoma who presents to [facility] for evaluation of his metastatic prostate [...] - 09/07/2018 03:36 PM Gautam Cope M.D. satellite instruction facilitator [place]/GLORIA/josef cc: CRUZ ROE MD [facility] [place] [address] MIKE LERNER M.D. [address], [address] [place] [address] / documented in this encounter Plan of Treatment Not on file documented as of this encounter Results * (ABNORMAL) CBC with auto differential (10/18/2018 1:55 PM CDT) WBC 9.7 3.8 - 9.8 K/cumm [facility] Comment:Testing performed by : [facility], [address] [place] [phone] Hgb 12.3(L) 13.8 - 17.2 g/dL [facility] Comment:Testing performed by : [facility], [address] [place] [phone] Hct 35.4(L) 40.7 - 50.3 % [facility] Comment:Testing performed by : [facility], [address] [place] [phone] Plt 362 140 - 440 K/cumm [facility] Comment:Testing performed by : [facility], [address] [place] [phone] MPV 7.2 6.8 - 10.4 fL [facility] Comment:Testing performed by : [facility], [address] [place] [phone] RBC 4.30(L) 4.50 - 5.70 M/cumm [facility] Comment:Testing performed by : [facility], [address] [place] [phone] MCV 82.2 80.0 - 97.6 fL [facility] Comment:Testing performed by : [facility], [address] [place] [phone] MCH 28.6 26.7 - 33.7 pg [facility] Comment:Testing performed by : [facility], [address] [place] [phone] MCHC 34.8 32.7 - 35.5 g/dL [facility] Comment:Testing performed by : [facility], [address] [place] [phone] RDW CV 15.4(H) 11.8 - 14.6 % [facility] Comment:Testing performed by : [facility], [address] [place] [phone] NRBC abs 0.00 0.00 - 0.01 K/cumm [facility] Comment:Testing performed by : [facility], [address] [place] [phone] Blood specimen (specimen) 10/18/2018 1:55 PM CDT 10/18/2018 1:57 PM CDT us Gautam Cope MD LAB BLOOD ORDERABLES Final Resul t [facility] One [facility] [place] [address] * PSA diagnostic (10/18/2018 1:50 PM CDT) PSA-Total 1.28 <=6.20 ng/mL [facility] Comment: Interpretive Data ?AGE ? [...] ORDERABLES Final Resul t Performing Organization Address [facility] de Phone Number [facility] Department [place] [address] * Lactate dehydrogenase (LD) (10/18/2018 1:50 PM CDT) [facility] Lactate dehydrogenase (LDH) 170 100 - 250 Units/L [facility] Blood specimen (specimen) 10/18/2018 1:50 PM CDT 10/18/2018 2:19 PM CDT Gautam Cope MD LAB BLOOD ORDERABLES Final Resul t Performing Organization Address [facility] de Phone Number [facility] Department [place] [address] * (ABNORMAL) Comprehensive metabolic panel (10/18/2018 1:50 PM CDT) Pathologist [facility] Sodium 136 135 - 145 mmol/L [facility] Potassium, pl 5.2(H) 3.3 - 4.9 mmol/L [facility] Chloride 104 97 - 110 mmol/L [facility] CO2 25 22 - 32 mmol/L [facility] Anion gap 7 2 - 15 mmol/L [facility] BUN 34(H) 8 - 25 mg/dL [facility] Creatinine 1.66(H) 0.80 - 1.30 mg/dL [facility] Glucose 190 70 - 199 mg/dL [facility] [...] 2017. Calcium 9.7 8.5 - 10.3 mg/dL [facility] Bilirubin, total 0.3 0.1 - 1.2 mg/dL [facility] Protein, pl 7.0 6.5 - 8.5 g/dL [facility] Albumin 4.3 3.5 - 5.0 g/dL [facility] Alk phos 103 40 - 130 Units/L [facility] ALT 30 7 - 55 Units/L [facility] AST 22 10 - 50 Units/L [facility] Blood specimen (specimen) 10/18/2018 1:50 PM CDT 10/18/2018 2:19 PM CDT us Gautam Cope MD LAB BLOOD ORDERABLES Final Resul t [facility] Department [place] [address] * (ABNORMAL) Testosterone (10/18/2018 1:43 PM CDT) Testosterone 10(L) 221 - 716 ng/dL [facility] Comment: Interpretive Data Male: Age 21-49 [...] ORDERABLES Final Resul t [facility] [place] [address] * CT Chest Abdomen Pelvis WO Contrast [...] PM CDT) PSA-Total 10.67(H) <=6.20 ng/mL [facility] Comment: Interpretive Data ?AGE ? SEX ?REFERENCE INTERVAL 0 minutes-150 years ?Female ?None 0 minutes-49 years ? Male ?None ? 50-59 years ? Male ?0-3.90 ? 60-69 years ? Male ?0-5.40 ? 70-79 years ? Male ?0-6.20 ? 80-150 years ?Male ?0-6.20 Current interpretive data last revised 2017. Blood specimen (specimen) 09/06/2018 3:45 PM CDT 09/06/2018 4:14 PM CDT Narrative [facility] - 09/06/2018 5:17 PM CDT us Gautam Cope MD LAB BLOOD ORDERABLES Final Resul t Performing Organization Address [facility] Co de Phone Number [facility] Department [place] [address] * Lactate dehydrogenase (LD) (09/06/2018 3:45 PM CDT) Lactate dehydrogenase (LDH) 162 100 - 250 Units/L [facility] Blood specimen (specimen) 09/06/2018 3:45 PM CDT 09/06/2018 4:14 PM CDT Narrative [facility] - 09/06/2018 5:11 PM CDT Gautam Cope MD LAB BLOOD ORDERABLES Final Resul t Performing Organization Address [facility] de Phone Number [facility] Department [place] [address] * (ABNORMAL) Comprehensive metabolic panel (09/06/2018 3:45 PM CDT) Pathologist [facility] Sodium 138 135 - 145 mmol/L [facility] Potassium, pl 4.2 3.3 - 4.9 mmol/L [facility] Chloride 100 97 - 110 mmol/L [facility] CO2 26 22 - 32 mmol/L [facility] Anion gap 12 2 - 15 mmol/L [facility] BUN 34(H) 8 - 25 mg/dL [facility] Creatinine 1.54(H) 0.80 - 1.30 mg/dL [facility] Glucose 147 70 - 199 mg/dL [facility] [...] 2017. Calcium 9.7 8.5 - 10.3 mg/dL [facility] Bilirubin, total 0.2 0.1 - 1.2 mg/dL [facility] Protein, pl 7.6 6.5 - 8.5 g/dL [facility] Albumin 4.5 3.5 - 5.0 g/dL [facility] Alk phos 109 40 - 130 Units/L [facility] ALT 27 7 - 55 Units/L [facility] AST 23 10 - 50 Units/L [facility] Blood specimen (specimen) 09/06/2018 3:45 PM CDT 09/06/2018 4:14 PM CDT Narrative [facility] - 09/06/2018 5:11 PM CDT us Gautam Cope MD LAB BLOOD ORDERABLES Final Resul t [facility] [place] [address] * (ABNORMAL) CBC with auto differential (09/06/2018 3:44 PM CDT) WBC 9.8 3.8 - 9.8 K/cumm [facility] Comment:Testing performed by : [facility], [address] [place] [phone] Hgb 12.5(L) 13.8 - 17.2 g/dL [facility] Comment:Testing performed by : [facility], [address] [place] [phone] Hct 36.9(L) 40.7 - 50.3 % [facility] Comment:Testing performed by : [facility], [address] [place] [phone] Plt 432 140 - 440 K/cumm [facility] Comment:Testing performed by : [facility], [address] [place] [phone] MPV 7.1 6.8 - 10.4 fL [facility] Comment:Testing performed by : [facility], [address] [place] [phone] RBC 4.54 4.50 - 5.70 M/cumm [facility] Comment:Testing performed by : [facility], [address] [place] [phone] MCV 81.5 80.0 - 97.6 fL [facility] Comment:Testing performed by : [facility], [address] [place] [phone] MCH 27.6 26.7 - 33.7 pg [facility] Comment:Testing performed by : [facility], [address] [place] [phone] MCHC 33.9 32.7 - 35.5 g/dL [facility] Comment:Testing performed by : [facility], [address] [place] [phone] RDW CV 15.1(H) 11.8 - 14.6 % [facility] Comment:Testing performed by : [facility], [address] [place] [phone] NRBC abs 0.01 0.00 - 0.01 K/cumm [facility] Comment:Testing performed by : [facility], [address] [place] [phone] Blood specimen (specimen) 09/06/2018 3:44 PM CDT 09/06/2018 3:47 PM CDT Narrative [facility] - 09/06/2018 3:51 PM CDT us Gautam Cope MD LAB BLOOD ORDERABLES Final Resul t [facility] [place] [address] * Testosterone (09/06/2018 3:44 PM CDT) Testosterone 271 241 - 827 ng/dL [facility] Comment: Interpretive Data Male: ??Age 19-71 yrs: ?? 241 - 827 ng/dL Female: ??Age 15-75 yrs: ?? 14 - 76 ng/dL Current interpretive data was last revised on 2012. Blood specimen (specimen) 09/06/2018 3:44 PM CDT 09/06/2018 4:00 PM CDT Narrative [facility] - 09/06/2018 6:09 PM CDT us Gautam Cope MD LAB BLOOD ORDERABLES Final Resul t [facility] Department [place] [address] documented in this encounter Visit Diagnoses Diagnosis [...] 10/18/201809/06 documented in this encounter Care Teams Telephone Claims Representative Relationship Specialty Start Date End Date Mike Lerner MD [address] [facility] [address] [place] [address] PCP - General 07/10/16 Gautam Cope MD [address] [place] [address] Medical Oncologist/Global Security Architect Medical Oncology 08/18/18 Cruz Roe MD [address] [facility] [address] [place] [address] Referring Physician Urology 08/18/18 Sukhwinder Uribe MD [address] [facility] [address] [place] [address] Consulting Physician Urology 08/18/18 Shay Guillermo MD [address] [facility] [address] [place] [address] Referring Physician Urology 08/18/18 documented as of this encounter
--- OUTSIDE RECORDS SUMMARY | 2024-03-31 11:35 | XMS_ITS | Encounter Summary ---
Author Organization [facility] Address [address] [place] [address] Care Team Providers Care Director Of Mechanical Engineering Name Role Phone Kraig Ching MD Primary Care Provider [phone] Gautam Cope MD Unavailable Tramaine Roe MD Unavailable [phone] Sukhwinder Uribe MD Unavailable [phone] Shay Guillermo MD Unavailable [phone] Reason for Visit * Reason Onset Date Comments Chest Wall Pain 11/10/2018 Encounter Details Date Type Department Care Team (Late st Contact Info) Description 11/10/2018 Nurse Triage [facility] [address] [facility] [address] [place] [address] Kraig Ching MD [address] [facility] [address] [place] [address] Social History Tobacco Use Types Packs/Day Years Used Date Smoking Tobacco: Former Smokeless Tobacco: Never Comments:Smoking History Pac ks/day: 10 Cigarettes Alcohol Use Standard Drinks/Week Comments Yes 0 (1 standard drink = 0.6 oz pur e alcohol) Occasional glass of wine. 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 Denied chest pain, sob, nausea, vomiting, fever, dizziness, swelling, redness, or rash. Declined appointment and is requesting medication sent to [facility]. Home care/call back instructions given. Routed to PCP's clinical group. Reason for Disposition ??? Intermittent mild chest pain lasting a few seconds each time Protocols used: CHEST [id number] * Telephone Encounter - Natasha Little, SHEA - 11/10/2018 3:17 PM CDT Regarding: Right Sided below rib cage pain ----- Message from Lanie Latham sent at 11/10/2018 3:09 PM CDT ----- Symptom Based Call Chief Complaint: Right Sided below rib cage pain Duration: Since Wednesday Appointment Details: Red Flag Caller's Callback #: [phone] Additional Comments: Patient is currently undergoing cancer treatment and Wednesday patient has started having right side pain below or lower rib cage. Pain is severe. is concerned. Please call back patient is with her. If practice uses e-visit, condition meets e-visit criteria, and patient has MyChart did you offer e-visit?: n/a Did you relay expectation for call back (doctor of veterinary medicine: Red Flag 10-15 min; non- emergent up to 3 hours)(Practice: Red Flag warm transfer; non-emergent up to 24 hours)? yes documented in this encounter Plan of Treatment Not on file documented as of this encounter Goals Goal Patient Goal Type Associated Problems Recent Progress Patient-Stated? Author CCM Chronic Pain Care Plan Chronic Care Management No change(03/23 1:47 PM PADDED BOX SEWER) No Ingrid Oden, RN Note: Problem: Chronic Pain Goals: 1. Minimize further functional decline 2. Maximize quality of life 3. Control pain Strategies: - Activity/exercise program recommendation - Conservative stepwise pain medicine strategy with multi-disciplinary approach - Recommend healthy lifestyle strategies and compensatory methods as needed documented as of this encounter Visit Diagnoses Not on filedocumented in this encounter Care Teams Director Of Mechanical Engineering Relationship Specialty Start Date End Date Kraig Ching MD [address] [place] [address] PCP - General 07/10/16 Gautam Cope MD [address] [place] [address] Medical Oncologist/Manager Validation Medical Oncology 08/18/18 Tramaine Roe MD [address] [place] [address] Referring Physician Urology 08/18/18 Sukhwinder Uribe MD [address] [place] [address] Consulting Physician Urology 08/18/18 Shay Guillermo MD [address] [place] [address] Referring Physician Urology 08/18/18 documented as of this encounter
--- OUTSIDE RECORDS SUMMARY | 2024-03-31 11:35 | XMS_ITS | Encounter Summary ---
Author Organization [facility] Healthcare Address [address] [place] [address] Care Team Providers Care Stone Polisher Name Role Phone Kraig Ching MD Primary Care Provider [phone] Gautam Cope MD Unavailable Tramaine Roe MD Unavailable [phone] Sukhwinder Uribe MD Unavailable [phone] Shay Guillermo MD Unavailable [phone] Reason for Visit * Reason Onset Date Comments Pre-Surgical Call 11/15/2018 Encounter Details Date Type Department Care Team (Late st Contact Info) Description 11/15/2018 Telephone [facility] [address] [facility] [address] [place], [place] [id number] Maru Arreola MD PhD [address] [facility] [id number] [place] [address] Pre-Surgical Call Social History Tobacco Use Types Packs/Day Years Used Date Smoking Tobacco: Former Smokeless Tobacco: Never Comments:Smoking History Pac ks/day: 10 Cigarettes Alcohol Use Standard Drinks/Week Comments Yes 0 (1 standard drink = 0.6 oz pur e alcohol) Occasional glass of wine. 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 Minimize further functional decline 2. Maximize quality of life 3. Control pain Strategies: - Activity/exercise program recommendation - Conservative stepwise pain medicine strategy with multi-disciplinary approach - Recommend healthy lifestyle strategies and compensatory methods as needed documented as of this encounter Visit Diagnoses Not on filedocumented in this encounter Care Teams Stone Polisher Relationship Specialty Start Date End Date Kraig Ching MD [address] [place] [address] PCP - General 07/10/16 Gautam Cope MD [address] [place] [address] Medical Oncologist/Dry Boss Medical Oncology 08/18/18 Tramaine Roe MD [address] [place] [address] Referring Physician Urology 08/18/18 Sukhwinder Uribe MD [address] [place] [address] Consulting Physician Urology 08/18/18 Shay Guillermo MD [address] [place] [address] Referring Physician Urology 08/18/18 documented as of this encounter
--- OUTSIDE RECORDS SUMMARY | 2024-03-31 11:35 | XMS_ITS | Encounter Summary ---
Author Organization [facility] Healthcare Address [address] [place] [address] Care Team Providers Care Home Health Provider Name Role Phone Kraig Ching MD Primary Care Provider [phone] Gautam Cope MD Unavailable Tramaine Roe MD Unavailable [phone] Sukhwinder Uribe MD Unavailable [phone] Shay Guillermo MD Unavailable [phone] Reason for Visit * Reason Onset Date Comments Pre-Surgical Call 09/13/2018 Encounter Details Date Type Department Care Team (Late st Contact Info) Description 09/13/2018 Telephone [facility] [address] [facility] [address] [place], [place] [id number] Maru Arreola MD PhD [address] [facility] [phone] [place] [address] Pre-Surgical Call Social History Tobacco Use Types Packs/Day Years Used Date Smoking Tobacco: Former Smokeless Tobacco: Former Comments:Smoking History Pac ks/day: 10 Cigarettes Alcohol Use Standard Drinks/Week Comments No 0 (1 standard drink = 0.6 oz pur e alcohol) quit 09/2017 Sex and Gender Information Value Date Recorded Sex Assigned at Not on file 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 Gender Identity Not on file Sexual Orientation Not on file documented as of this encounter Miscellaneous Notes * Telephone Encounter - Caitlin Lynn RN - 09/13/2018 5:40 PM CDT PRE CALL DONE documented in this encounter Plan of Treatment Not on file documented as of this encounter Visit Diagnoses Not on filedocumented in this encounter Care Teams Home Health Provider Relationship Specialty Start Date End Date Kraig Ching MD [address] [place] [address] PCP - General 07/10/16 Gautam Cope MD [address] [place] [address] Medical Oncologist/Project Portfolio Analyst Medical Oncology 08/18/18 Tramaine Roe MD [address] [place] [address] Referring Physician Urology 08/18/18 Sukhwinder Uribe MD [address] [place] [address] Consulting Physician Urology 08/18/18 Shay Guillermo MD [address] [place] [address] Referring Physician Urology 08/18/18 documented as of this encounter
--- OUTSIDE RECORDS SUMMARY | 2024-03-31 11:35 | XMS_ITS | Encounter Summary ---
Author Organization [facility] Address [address] [place] [address] Phone Care Team Providers Care Marine Pipefitter Helper Name Role Phone Kraig Ching MD Primary Care Provider [phone] Gautam Cope MD Unavailable Tramaine Roe MD Unavailable [phone] Sukhwinder Uribe MD Unavailable [phone] Shay Guillermo MD Unavailable [phone] Encounter Details Date Type Department Care Team (Late st Contact Info) Description 11/02/2018 Orders Only [facility] Oncology [address] [facility] 7th [place] [address] [place] [address] Muna Saleem RN Social History Tobacco Use Types Packs/Day Years Used Date Smoking Tobacco: Former Smokeless Tobacco: Never Comments:Smoking History Pac ks/day: 10 Cigarettes Alcohol Use Standard Drinks/Week Comments Yes 0 (1 standard drink = 0.6 oz pur e alcohol) Occasional glass of wine. 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 Author CCM Chronic Pain Care Plan Chronic Care Management No change(03/23 1:47 PM OUTSIDE SALESPERSON) No Ingrid Oden, SHEA Note: Problem: Chronic [...] documented as of this encounter Care Teams Marine Pipefitter Helper Relationship Specialty Start Date End Date Kraig Ching MD [address] [place] [address] PCP - General 07/10/16 Gautam Cope MD [address] [place] [address] Medical Oncologist/Manager Personnel Selection Medical Oncology 08/18/18 Tramaine Roe MD [address] [place] [address] Referring Physician Urology 08/18/18 Sukhwinder Uribe MD [address] [place] [address] Consulting Physician Urology 08/18/18 Shay Guillermo MD [address] [place] [address] Referring Physician Urology 08/18/18 documented as of this encounter
--- OUTSIDE RECORDS SUMMARY | 2024-03-31 11:35 | XMS_ITS | Encounter Summary ---
Author Organization [facility] Address [address] [place] [address] Care Team Providers Care Weld Fitter Name Role Phone Kraig Ching MD Primary Care Provider [phone] Gautam Cope MD Unavailable Tramaine Roe MD Unavailable Sukhwinder Uribe MD Unavailable [phone] Shay Guillermo MD Unavailable Reason for Referral * Diagnostic Imaging (Routine) - Closed Specialty Diagnoses / Procedures Referred By Contac t Referred To Contact Radiology Diagnoses Prostate cancer (HCC) Procedures CT Chest Abdomen Pelvis WO Contrast Gautam Cope MD Phone: tel: fax: [address] [address] Referral ID Status Reason Start Date Expiration Date Visits Re quested Visits Authorized [id number] Closed 09/06/2018 03/17/2020 1 1 Reason for Visit * Diagnostic Imaging (Routine) - Closed Specialty Diagnoses / Procedures Referred By Contac t Referred To Contact Radiology Diagnoses Prostate cancer (HCC) Procedures CT Chest Abdomen Pelvis WO Contrast Gautam Cope MD Phone: tel: fax: [address] [address] Referral ID Status Reason Start Date Expiration Date Visits Re quested Visits Authorized [id number] Closed 09/06/2018 03/17/2020 1 1 Encounter Details Date Type Department Care Team (Latest Contact Info) Description 09/13/2018 7:33 AM CDT - 09/13/2018 11:59 PM CDT Hospital Encounter [facility] [address] [place] [address] Gautam Cope MD [address] [facility] [address] [place] [address] Prostate cancer (CMS/HCC) Discharge Disposition: Discharge to [...] on file 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 Gender Identity Not on file Sexual Orientation [...] prostate documented in this encounter Care Teams Weld Fitter Relationship Specialty Start Date End Date Kraig Ching MD [address] [address] PCP - General 07/10/16 Gautam Cope MD [address] [facility] [address] [place] [address] Medical Oncologist/Manager Of Enterprise Medical Oncology 08/18/18 Tramaine Roe MD [address] [facility] [address] [place] [address] Referring Physician Urology 08/18/18 Sukhwinder Uribe MD [address] [facility] [address] [place] [address] Consulting Physician Urology 08/18/18 Shay Guillermo MD [address] [facility] [address] [place] [address] Referring Physician Urology 08/18/18 documented as of this encounter
--- OUTSIDE RECORDS SUMMARY | 2024-03-31 11:35 | XMS_ITS | Encounter Summary ---
Author Organization [facility] Address [address] [place] [address] Phone Care Team Providers Care Automobile Body Worker Name Role Phone Kraig Ching MD Primary Care Provider [phone] Gautam Cope MD Unavailable Tramaine Roe MD Unavailable [phone] Sukhwinder Uribe MD Unavailable Shay Guillermo MD Unavailable [phone] Encounter Details Date Type Department Care Team (Late st Contact Info) Description 10/20/2018 Orders Only [facility] Oncology [address] [facility] 7th [place] [address] [place] [phone] Muna Saleem RN Prostate cancer ([facility] [...] file Legal Sex Male 4:46 PM SOLE LEVELER Gender Identity Not on file Sexual Orientation [...] Care Management No change(03/23 1:47 PM SOLE LEVELER) No Ingrid Oden RN Note: Problem: Chronic [...] documented as of this encounter Care Teams Automobile Body Worker Relationship Specialty Start Date End Date Kraig Ching MD [address] [facility] [address] [place] [address] PCP - General 07/10/16 Gautam Cope MD [address] [facility] [address] [place] [address] Medical Oncologist/Firer Low Pressure Medical Oncology 08/18/18 Tramaine Roe MD [address] [facility] [address] [place] [address] Referring Physician Urology 08/18/18 Sukhwinder Uribe MD [address] [facility] [address] [place] [address] Consulting Physician Urology 08/18/18 Shay Guillermo MD [address] [facility] [address] [place] [address] Referring Physician Urology 08/18/18 documented as of this encounter
--- OUTSIDE RECORDS SUMMARY | 2024-03-31 11:35 | XMS_ITS | Encounter Summary ---
Author Organization [facility] Healthcare Address [address] [place] [address] Care Team Providers Care Title I Teacher Name Role Phone Kraig Ching MD Primary Care Provider [phone] Gautam Cope MD Unavailable Tramaine Roe MD Unavailable Sukhwinder Uribe MD Unavailable Shay Guillermo MD Unavailable [phone] Reason for Visit * Reason Onset Date Comments CALL BACK 10/14/2018 Encounter Details Date Type Department Care Team (Late st Contact Info) Description 10/14/2018 Telephone [facility] [address] [facility] [address] [place], [place] [id number] Maru Arreola MD PhD [address] [facility] [phone] [place], [place] [id number] CALL BACK Social History Tobacco Use Types Packs/Day Years Used Date Smoking Tobacco: Former Smokeless Tobacco: Never Comments:Smoking History Pac ks/day: 10 Cigarettes Alcohol Use Standard Drinks/Week Comments Yes 0 (1 standard drink = 0.6 oz pur e alcohol) Occasional glass of wine. Sex and Gender Information Value Date Recorded Sex Assigned at Not on file Legal Sex Male 4:46 PM FUR DRESSER Gender Identity Not on file Sexual Orientation [...] Care Management No change(03/23 1:47 PM FUR DRESSER) No Ingrid Oden RN Note: Problem: Chronic Pain Goals: 1. Minimize further functional decline 2. Maximize quality of life 3. Control pain Strategies: - Activity/exercise program recommendation - Conservative stepwise pain medicine strategy with multi-disciplinary approach - Recommend healthy lifestyle strategies and compensatory methods as needed documented as of this encounter Visit Diagnoses Not on filedocumented in this encounter Care Teams Title I Teacher Relationship Specialty Start Date End Date Kraig Ching MD [address] [place] [address] PCP - General 07/10/16 Gautam Cope MD [address] [place] [address] Medical Oncologist/Court Assistant Medical Oncology 08/18/18 Tramaine Roe MD [address] [place] [address] Referring Physician Urology 08/18/18 Sukhwinder Uribe MD [address] [place] [address] Consulting Physician Urology 08/18/18 Shay Guillermo MD [address] [place] [address] Referring Physician Urology 08/18/18 documented as of this encounter
--- OUTSIDE RECORDS SUMMARY | 2024-03-31 11:35 | XMS_ITS | Encounter Summary ---
Author Organization [facility] Address [address] [place] [address] Phone Care Team Providers Care Fur Glazer Name Role Phone Kraig Ching MD Primary Care Provider [phone] Gautam Cope MD Unavailable Tramaine Roe MD Unavailable Sukhwinder Uribe MD Unavailable Shay Guillermo MD Unavailable [phone] Encounter Details Date Type Department Care Team (Late st Contact Info) Description 10/14/2018 Orders Only [facility] Oncology [address] [facility] 7th [place] [address] [place] [address] Muna Saleem RN Prostate cancer ([facility]/HCC) Social History Tobacco Use Types Packs/Day Years Used Date Smoking Tobacco: Former Smokeless Tobacco: Never Comments:Smoking History Pac ks/day: 10 Cigarettes Alcohol Use Standard Drinks/Week Comments Yes 0 (1 standard drink = 0.6 oz pur e alcohol) Occasional glass of wine. 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 Author CCM Chronic Pain Care Plan Chronic Care Management No change(03/23 1:47 PM IT INFRASTRUCTURE ARCHITECT) No Ingrid Oden, SHEA Note: Problem: [...] Comment:Testing performed by : [facility], [address] [place] [phone] Hgb 11.9(L) 13.8 - 17.2 g/dL [facility] Comment:Testing performed by : [address] [address] Hct 35.7(L) 40.7 - 50.3 % [facility] Comment:Testing performed by : [address] [address] Plt 380 140 - 440 K/cumm [facility] Comment:Testing performed by : [address] [address] MPV 7.2 6.8 - 10.4 fL [facility] Comment:Testing performed by : [place] [phone] RBC 4.14(L) 4.50 - 5.70 M/cumm [facility] Comment:Testing performed by : [address] [address] MCV 86.3 80.0 - 97.6 fL [facility] Comment:Testing performed by : [address] [address] MCH 28.8 26.7 - 33.7 pg [facility] Comment:Testing performed by : [address] [address] MCHC 33.3 32.7 - 35.5 g/dL [facility] Comment:Testing performed by : [address] [address] RDW CV 16.0(H) 11.8 - 14.6 % [facility] Comment:Testing performed by : [facility], [address] [facility] [address] NRBC abs 0.00 0.00 - 0.01 K/cumm [facility] Comment:Testing performed by : [facility], [address] [facility] [phone] Blood specimen (specimen) 12/06/2018 2:11 PM CDT 12/06/2018 2:12 PM CDT us Gautam Cope MD LAB BLOOD ORDERABLES Final Resul t [facility] Department [place] [address] * PSA diagnostic (12/06/2018 1:58 PM CDT) PSA-Total 0.28 <=6.20 ng/mL [facility] Comment: [...] Final Resul t [facility] [place] [address] * (ABNORMAL) Comprehensive metabolic panel (12/06/2018 1:58 PM CDT) Sodium 140 135 - 145 mmol/L [facility] Potassium, pl 5.5(H) 3.3 - 4.9 mmol/L [facility] Chloride 105 97 - 110 mmol/L [facility] CO2 28 22 - 32 mmol/L [facility] Anion gap 7 2 - 15 mmol/L [facility] BUN 36(H) 8 - 25 mg/dL [facility] Creatinine 1.57(H) 0.80 - 1.30 mg/dL [facility] Glucose 289(H) 70 - 199 mg/dL [facility] [...] 8.5 - 10.3 mg/dL [facility] Bilirubin, total 0.2 0.1 - 1.2 mg/dL [facility] Protein, pl 6.8 6.5 - 8.5 g/dL [facility] Albumin 4.1 3.5 - 5.0 g/dL [facility] Alk phos 107 40 - 130 Units/L [facility] ALT 37 7 - 55 Units/L [facility] AST 21 10 - 50 Units/L [facility] Blood specimen (specimen) 12/06/2018 1:58 PM CDT 12/06/2018 2:28 PM CDT us Gautam Cope MD LAB BLOOD ORDERABLES Final Resul t [facility] [place] [address] * Lactate dehydrogenase (LD) (12/06/2018 1:58 PM CDT) Lactate dehydrogenase (LDH) 171 100 - 250 Units/L [facility] Blood specimen (specimen) 12/06/2018 1:58 PM CDT 12/06/2018 2:28 PM CDT Gautam Cope MD LAB BLOOD ORDERABLES Final Resul t Performing Organization Address City/[facility] Co de Phone Number [facility] Department [place] [address] documented in this encounter Visit Diagnoses Diagnosis Prostate cancer (HCC) Malignant neoplasm of prostate documented in this encounter Care Teams Fur Glazer Relationship Specialty Start Date End Date Kraig Ching MD [address] [facility] [address] [place] [address] PCP - General 07/10/16 Gautam Cope MD [address] [place] [address] Medical Oncologist/Diamond Sorter Medical Oncology 08/18/18 Tramaine Roe MD [address] [place] [address] Referring Physician Urology 08/18/18 Sukhwinder Uribe MD [address] [place] [address] Consulting Physician Urology 08/18/18 Shay Guillermo MD [address] [place] [address] Referring Physician Urology 08/18/18 documented as of this encounter
--- OUTSIDE RECORDS SUMMARY | 2024-03-31 11:35 | XMS_ITS | Encounter Summary ---
Author Organization [facility] Address [address] [place] [address] Phone Care Team Providers Care Senior Label Specialist Name Role Phone Kraig Ching MD Primary Care Provider Gautam Cope MD Unavailable Tramaien Roe MD Unavailable [phone] Sukhwinder Uribe MD Unavailable [phone] Shay Guillermo MD Unavailable [phone] Encounter Details Date Type Department Care Team (Late st Contact Info) Description 10/18/2018 2:15 PM CDT Lab [facility] Oncology [address] [facility] 7th [place] [address] [place] [address] Prostate cancer ([facility]/HCC) Social History Tobacco Use Types Packs/Day Years Used Date Smoking Tobacco: Former Smokeless Tobacco: Never Comments:Smoking History Pac ks/day: 10 Cigarettes Alcohol Use Standard Drinks/Week Comments Yes 0 (1 standard drink = 0.6 oz pur e alcohol) Occasional glass of wine. 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 Author CCM Chronic Pain Care Plan Chronic Care Management No change(03/23 1:47 PM POSITION CLASSIFICATION MANAGER) No Ingrid Oden, RN Note: Problem: [...] K/cumm [facility] Comment:Testing performed by : [facility], [address] [place] [phone] Lymphocyte abs 1.9 1.2 - 3.3 K/cumm [facility] Comment:Testing performed by : [facility], [address] [place] [phone] Monocyte abs 0.9 0.2 - 1.2 K/cumm [facility] Comment:Testing performed by : [facility], [address] [place] [phone] Eosinophil abs 0.3 0.0 - 0.5 K/cumm [facility] Comment:Testing performed by : [facility], [address] [place] [phone] Basophil abs 0.1 0.0 - 0.2 K/cumm [facility] Comment:Testing performed by : [facility], [address] [place] [phone] Neutrophil pct 67.6 % [facility] Comment: Interpretive Data Percent cell count reference ranges are not reported, since discordance with absolute values may lead to misinterpretation of CBC data. Current Interpretive Data was last revised on 2017. Testing performed by: [facility], [address] [place] [phone] Lymphocyte pct 19.9 % [facility] Comment: Interpretive Data Percent cell count reference ranges are not reported, since discordance with absolute values may lead to misinterpretation of CBC data. Current Interpretive Data was last revised on 2017. Testing performed by: [address] [address] Monocyte pct 9.1 % [facility] Comment:Testing performed by : [facility], [address] [place] [phone] Eosinophil pct 2.8 % [facility] Comment:Testing performed by : [facility], [address] [place] [phone] Basophil pct 0.6 % [facility] Comment:Testing performed by : [address] [address] Blood specimen (specimen) 10/18/2018 1:55 PM CDT 10/18/2018 1:57 PM CDT us Gautam Cope MD LAB BLOOD ORDERABLES Final Resul t [facility] Department [place] [address] * (ABNORMAL) CBC with auto differential (10/18/2018 1:55 PM CDT) WBC 9.7 3.8 - 9.8 K/cumm [facility] Comment:Testing performed by : [facility], [address] [place] [address] Hgb 12.3(L) 13.8 - 17.2 g/dL [facility] Comment:Testing performed by : [place] [address] Hct 35.4(L) 40.7 - 50.3 % [facility] Comment:Testing performed by : [place] [address] Plt 362 140 - 440 K/cumm [facility] Comment:Testing performed by : [place] [address] MPV 7.2 6.8 - 10.4 fL [facility] Comment:Testing performed by : [place] [address] RBC 4.30(L) 4.50 - 5.70 M/cumm [facility] Comment:Testing performed by : [place] [address] MCV 82.2 80.0 - 97.6 fL [facility] Comment:Testing performed by : [place] [address] MCH 28.6 26.7 - 33.7 pg [facility] Comment:Testing performed by : [place] [address] MCHC 34.8 32.7 - 35.5 g/dL [facility] Comment:Testing performed by : [place] [address] RDW CV 15.4(H) 11.8 - 14.6 % [facility] Comment:Testing performed by : [place] [address] NRBC abs 0.00 0.00 - 0.01 K/cumm [facility] Comment:Testing performed by : [place] [address] Blood specimen (specimen) 10/18/2018 1:55 PM CDT 10/18/2018 1:57 PM CDT Gautam Cope MD LAB BLOOD ORDERABLES Final Resul t Performing Organization Address [place]/[facility] de Phone Number [facility] Department [place] [address] * (ABNORMAL) Hemoglobin A1c (10/18/2018 1:53 PM CDT) Hgb A1C 8.5(H) 4.0 - 5.6 % [facility] Estimated Average Glucose 197 mg/dL [facility] Comment: The ADA recommends reporting an estimated Average Glucose (eAG) with all Hemoglobin A1c results using the equation derived from a study of 507 normal and diabetic adults. ??Minority populations were underrepresented and children were not included. ?? (Diabetes Care 31:0138-2906, 2007). ??The eAG is not equivalent to a fasting glucose. Blood specimen (specimen) 10/18/2018 1:53 PM CDT 10/18/2018 2:18 PM CDT Gautam Cope MD LAB BLOOD ORDERABLES Final Resul t Performing Organization Address [place]/[facility] de Phone Number [facility] Department [place] [address] * (ABNORMAL) Comprehensive metabolic panel (10/18/2018 1:50 PM CDT) Sodium 136 135 - 145 mmol/L [facility] Potassium, pl 5.2(H) 3.3 - 4.9 mmol/L [facility] Chloride 104 97 - 110 mmol/L [facility] CO2 25 22 - 32 mmol/L [facility] Anion gap 7 2 - 15 mmol/L [facility] BUN 34(H) 8 - 25 mg/dL [facility] Creatinine 1.66(H) 0.80 - 1.30 mg/dL [facility] Glucose 190 70 - 199 mg/dL [facility] Comment: Interpretive Data Fasting glucose >/= [...] Calcium 9.7 8.5 - 10.3 mg/dL [facility] Bilirubin, total 0.3 0.1 - 1.2 mg/dL [facility] Protein, pl 7.0 6.5 - 8.5 g/dL [facility] Albumin 4.3 3.5 - 5.0 g/dL [facility] Alk phos 103 40 - 130 Units/L [facility] ALT 30 7 - 55 Units/L [facility] AST 22 10 - 50 Units/L [facility] Blood specimen (specimen) 10/18/2018 1:50 PM CDT 10/18/2018 2:19 PM CDT Gautam Cope MD LAB BLOOD ORDERABLES Final Resul t Performing Organization Address City/[facility] Co de Phone Number [facility] [place] [address] * Lactate dehydrogenase (LD) (10/18/2018 1:50 PM CDT) Pathologist [facility] Lactate dehydrogenase (LDH) 170 100 - 250 Units/L [facility] Blood specimen (specimen) 10/18/2018 1:50 PM CDT 10/18/2018 2:19 PM CDT Gautam Cope MD LAB BLOOD ORDERABLES Final Resul t Performing Organization Address City/[facility] Co de Phone Number [facility] [place] [address] * PSA diagnostic (10/18/2018 1:50 PM CDT) PSA-Total 1.28 <=6.20 ng/mL [facility] Comment: Interpretive Data ?AGE ? SEX [...] City/State/[facility] Co de Phone Number [facility] [place] [address] * (ABNORMAL) Testosterone (10/18/2018 1:43 PM CDT) Testosterone 10(L) 221 - 716 ng/dL [facility] Comment: Interpretive Data Male: Age 21-49 years: [...] ORDERABLES Final Resul t [facility] Department [place] [address] documented in this encounter Visit Diagnoses Diagnosis Prostate cancer (HCC) Malignant neoplasm of prostate documented in this encounter Orders Appointment Requests Count Last Ordered Date Fi rst Ordered Date ONCBCN LAB APPOINTMENT 1 10/18/2018 documented in this encounter Care Teams Senior Label Specialist Relationship Specialty Start Date End Date Kraig Ching MD [address] [place] [address] PCP - General 07/10/16 Gautam Cope MD [address] [place] [address] Medical Oncologist/Nip Wrapper Medical Oncology 08/18/18 Tramaine Roe MD [address] [place] [address] Referring Physician Urology 08/18/18 Sukhwinder Uribe MD [address] [place] [address] Consulting Physician Urology 08/18/18 Shay Guillermo MD [address] [place] [address] Referring Physician Urology 08/18/18 documented as of this encounter
--- OUTSIDE RECORDS SUMMARY | 2024-03-31 11:35 | XMS_ITS | Encounter Summary ---
Author Organization [facility] Address [address] [place] [address] Phone Care Team Providers Care Mailing Machine Assistant Name Role Phone Kraig Ching MD Primary Care Provider [phone] Gautam Cope MD Unavailable Tramaine Roe MD Unavailable [phone] Sukhwinder Uribe MD Unavailable [phone] Shay Guillermo MD Unavailable [phone] Encounter Details Date Type Department Care Team (Late st Contact Info) Description 10/20/2018 Orders Only [facility] Oncology [address] [facility] 7th [place] [address] [place] [address] Muna Saleem RN Social History Tobacco Use [...] Legal Sex 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 Author CCM Chronic Pain Care Plan Chronic Care Management No change(03/23 1:47 PM CIVIL ENGINEERING PROJECT DESIGNER) No Ingrid Oden, SHEA Note: Problem: Chronic Pain Goals: 1. Minimize further functional decline 2. Maximize quality of life 3. Control pain Strategies: - Activity/exercise program recommendation - Conservative stepwise pain medicine strategy with multi-disciplinary approach - Recommend healthy lifestyle strategies and compensatory methods as needed documented as of this encounter Visit Diagnoses Not on filedocumented in this encounter Care Teams Mailing Machine Assistant Relationship Specialty Start Date End Date Kraig Ching MD [address] [place] [address] PCP - General 07/10/16 Gautam Cope MD [address] [place] [address] Medical Oncologist/Back Tender Pulp Drier Medical Oncology 08/18/18 Tramaine Roe MD [address] [place] [address] Referring Physician Urology 08/18/18 Sukhwinder Uribe MD [address] [place] [address] Consulting Physician Urology 08/18/18 Shay Guillermo MD [address] [place] [address] Referring Physician Urology 08/18/18 documented as of this encounter
--- OUTSIDE RECORDS SUMMARY | 2024-03-31 11:35 | XMS_ITS | Encounter Summary ---
Author Organization [facility] Healthcare Address [address] [place] [address] Care Team Providers Care Oil Scout Name Role Phone Kraig Ching MD Primary Care Provider [phone] Gautam Cope MD Unavailable Tramaine Roe MD Unavailable [phone] Sukhwinder Uribe MD Unavailable [phone] Shay Guillermo MD Unavailable [phone] Reason for Visit * Reason Comments Chronic Pain Encounter Details Date Type Department Care Team (Latest Contact Info) Description 09/15/2018 1:43 PM CDT - 09/15/2018 1:54 PM CDT Hospital Encounter 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 DIET: [x] Resume normal diet [] See [facility] Post Discharge Procedure Information Sheet ACTIVITY: [] Resume normal activity [x] See [facility] Post Discharge Procedure Information Sheet REFERRALS: Physical Therapy [] [facility] ([phone]) [] GMI (Graded Motor Imagery) [] [facility] ([phone]) [] Other: Behavior Medicine [] Pain Psychologist, [facility] Please call to schedule appointment [phone] or [phone] Diagnostic Test(s): EDUCATION provided on the following: [...] INSTRUCTIONS before your next procedure: [] See [facility] Pre-Procedure Information Sheet [] Do not eat for six (6) hours or drink for three (3) hours before the time/date of the procedure. [] Inquire with your prescribing provider if ok to hold blood thinner for days before procedure. [] Blood work required 2 hours before procedure: [] Garbage Stoker needed for next procedure Patient provided information and repeated back with understanding. If you need to reach us: For any questions about your procedure, please call the Pain Management Center [phone] (M-F) (8am-4pm) If you need urgent attention after 5 pm and weekends: Call the [facility] Toll Mechanic at [phone] and ask for the Pain Service doctor operations vice president. Gabapentin (By mouth) Gabapentin ([id number]) Treats seizures and pain caused by shingles. [...] pharmacist before using any other medicine, including mgsa-spn-cwgzqmg medicines, vitamins, and herbal products. ?? Some [...] may report side effects to FDA at 0-144-TUK-6577 ?? 2016 [employer] Information is for End User's use only and may not be sold, redistributed or otherwise used for commercial purposes. The above information is an activity aide only. It is not intended as [...] MD Resident, Pain Management, Department of Anesthesiology [facility] 09/15/2018 6:32 PM I have seen and examined the patient. I agree with the findings and plan of care as documented in the resident's note. Maru Arreola MD PhD Instructor of Anesthesiology [facility] 09/15/2018 6:32 PM documented in this encounter [...] Oden RN - 09/15/2018 2:27 PM CDT Garbage Stoker - (Rosy). documented in this encounter Plan of Treatment Not on file documented as of this encounter Goals Goal Patient Goal Type Associated Problems Recent Progress Patient-Stated? Author CCM Chronic Pain Care Plan Chronic Care Management No change(03/23 1:47 PM INSTALLER INSPECTOR FINAL) No Ingrid Oden RN Note: Problem: Chronic [...] 09/15/2018 documented in this encounter Care Teams Oil Scout Relationship Specialty Start Date End Date Kraig Ching MD [address] [facility] [address] [place] [address] PCP - General 07/10/16 Gautam Cope MD [address] [facility] [address] [place] [address] Medical Oncologist/Knitting Machine Tender Medical Oncology 08/18/18 Tramaine Roe MD [address] [facility] [address] [place] [address] Referring Physician Urology 08/18/18 Sukhwinder Uribe MD [address] [facility] [address] [place] [address] Consulting Physician Urology 08/18/18 Shay Guillermo MD [address] [facility] [address] [place] [address] Referring Physician Urology 08/18/18 documented as of this encounter
--- OUTSIDE RECORDS SUMMARY | 2024-03-31 11:35 | XMS_ITS | Encounter Summary ---
Author Organization [facility] Healthcare Address [address] [place] [address] Care Team Providers Care Product Management Manager Name Role Phone Kraig Ching MD Primary Care Provider [phone] Gautam Cope MD Unavailable Tramaine Roe MD Unavailable [phone] Sukhwinder Uribe MD Unavailable [phone] Shay Guillermo MD Unavailable Reason for Visit * Reason Onset Date Comments Schedule lumbar inj 09/09/2018 Encounter Details Date Type Department Care Team (Late st Contact Info) Description 09/09/2018 Telephone [facility] at [address] [place] [address] Maru Arreola MD PhD [phone] [place] [address] Schedule lumbar inj Social History Tobacco Use Types Packs/Day Years Used Date Smoking Tobacco: Former Smokeless Tobacco: Former Comments:Smoking History Pac ks/day: 10 Cigarettes Alcohol Use Standard Drinks/Week Comments No 0 (1 standard drink = 0.6 oz pur e alcohol) quit 09/2017 Sex and Gender Information Value Date Recorded Sex Assigned at Not on file 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 Gender Identity Not on file Sexual Orientation [...] on filedocumented in this encounter Care Teams Product Management Manager Relationship Specialty Start Date End Date Kraig Ching MD [address] [place] [address] PCP - General 07/10/16 Gautam Cope MD [address] [place] [address] Medical Oncologist/Safe And Vault Installer Medical Oncology 08/18/18 Tramaine Roe MD [address] [place] [address] Referring Physician Urology 08/18/18 Sukhwinder Uribe MD [address] [place] [address] Consulting Physician Urology 08/18/18 Shay Guillermo MD [address] [place] [address] Referring Physician Urology 08/18/18 documented as of this encounter
--- OUTSIDE RECORDS SUMMARY | 2024-03-31 11:35 | XMS_ITS | Encounter Summary ---
Author Organization [facility] Healthcare Address [address] [place] [address] Care Team Providers Care Foreman Shipping Department Name Role Phone Kraig Ching MD Primary Care Provider [phone] Gautam Cope MD Unavailable Tramaine Roe MD Unavailable [phone] Sukhwinder Uribe MD Unavailable [phone] Shay Guillermo MD Unavailable [phone] Reason for Referral * Diagnostic Imaging (Routine) - Closed Specialty Diagnoses / Procedures Referred By Contac t Referred To Contact Diagnoses Pain management Procedures FL Fluoroscopy < 1 Hour (Statistical Only) Maru Arreola MD PhD Phone: tel: fax: [address] [phone] Referral ID Status Reason Start Date Expiration Date Visits Re quested Visits Authorized [id number] Closed 09/15/2018 03/26/2020 1 1 Reason for Visit * Diagnostic Imaging (Routine) - Closed Specialty Diagnoses / Procedures Referred By Contac t Referred To Contact Diagnoses Pain management Procedures FL Fluoroscopy < 1 Hour (Statistical Only) Maru Arreola MD PhD Phone: tel: fax: [address] [address] Referral ID Status Reason Start Date Expiration Date Visits Re quested Visits Authorized [id number] Closed 09/15/2018 03/26/2020 1 1 Encounter Details Date Type Department Care Team (Latest Contact Info) Description 09/15/2018 1:55 PM CDT - 09/15/2018 11:59 PM CDT Hospital Encounter [facility] [address] [place] [address] Maru Arreola MD PhD [phone] [place], [place] [id number] Pain management Discharge Disposition: Discharge to home [...] on file Legal Sex Male 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[employer] 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 Gender Identity Not on file Sexual Orientation [...] Chronic Care Management No change(03/23 1:47 PM COUN[employer]) No Ingrid Oden, SHEA Note: Problem: Chronic [...] management documented in this encounter Care Teams Foreman Shipping Department Relationship Specialty Start Date End Date Kraig Ching MD [address] [place] [address] PCP - General 07/10/16 Gautam Cope MD [address] [place] [address] Medical Oncologist/Hop Picker Medical Oncology 08/18/18 Tramaine Roe MD [address] [place] [address] Referring Physician Urology 08/18/18 Sukhwinder Uribe MD [address] [place] [address] Consulting Physician Urology 08/18/18 Shay Guillermo MD [address] [place] [address] Referring Physician Urology 08/18/18 documented as of this encounter
--- OUTSIDE RECORDS SUMMARY | 2024-03-31 11:35 | XMS_ITS | Encounter Summary ---
Author Organization [facility] Address [address] [place] [address] Phone Care Team Providers Care Application Defense Manager Name Role Phone Kraig Ching MD Primary Care Provider [phone] Gautam Cope MD Unavailable Tramaine Roe MD Unavailable [phone] Sukhwinder Uribe MD Unavailable [phone] Shay Guillermo MD Unavailable [phone] Encounter Details Date Type Department Care Team (Late st Contact Info) Description 09/06/2018 Orders Only [facility] Oncology [address] [facility] 7th [place] [address] Muna Saleem RN Social History Tobacco Use Types Packs/Day Years Used Date Smoking Tobacco: Former Smokeless Tobacco: Former Comments:Smoking History Pac ks/day: 10 Cigarettes Alcohol Use Standard Drinks/Week Comments No 0 (1 standard drink = 0.6 oz pur e alcohol) quit 09/2017 Sex and Gender Information Value Date Recorded Sex Assigned at Not on file 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 [address] [place] [address] Medical Oncologist/Steel Worker Medical Oncology 08/18/18 Tramaine Roe MD [address] [facility] [address] [place] [address] Referring Physician Urology 08/18/18 Sukhwinder Uribe MD [address] [facility] [address] [place] [address] Consulting Physician Urology 08/18/18 Shay Guillermo MD [address] [facility] [address] [place] [address] Referring Physician Urology 08/18/18 documented as of this encounter
--- OUTSIDE RECORDS SUMMARY | 2024-03-31 11:35 | XMS_ITS | Encounter Summary ---
Author Organization [facility] Address [address] [place] [address] Phone Care Team Providers Care Radio Presenter Name Role Phone Kraig Ching MD Primary Care Provider Gautam Cope MD Unavailable Tramaine Roe MD Unavailable [phone] Sukhwinder Uribe MD Unavailable [phone] Shay Guillermo MD Unavailable [phone] Encounter Details Date Type Department Care Team (Late st Contact Info) Description 10/20/2018 Orders Only [facility] Oncology [address] [facility] 7th [place] [address] [place] [address] Muna Saleem RN Prostate cancer ([facility]) Social History Tobacco Use Types Packs/Day Years Used Date Smoking Tobacco: Former Smokeless Tobacco: Never Comments:Smoking History Pac ks/day: 10 Cigarettes Alcohol Use Standard Drinks/Week Comments Yes 0 (1 standard drink = 0.6 oz pur e alcohol) Occasional glass of wine. Sex and Gender Information Value Date Recorded Sex Assigned at Not on file Legal Sex Male 4:46 PM DIRECTOR OF FRONT OFFICE Gender Identity Not on file Sexual Orientation [...] Management No change(03/23 1:47 PM DIRECTOR OF FRONT OFFICE) No Ingrid Oden, RN Note: Problem: Chronic [...] documented as of this encounter Care Teams Radio Presenter Relationship Specialty Start Date End Date Kraig Ching MD [address] [facility] [address] [place] [address] PCP - General 07/10/16 Gautam Cope MD [address] [facility] [address] [place] [address] Medical Oncologist/Program Advocate Medical Oncology 08/18/18 Tramaine Roe MD [address] [place] [address] Referring Physician Urology 08/18/18 Sukhwinder Uribe MD [address] [facility] [address] [place] [address] Consulting Physician Urology 08/18/18 Shay Guillermo MD [address] [facility] [address] [place] [address] Referring Physician Urology 08/18/18 documented as of this encounter
--- OUTSIDE RECORDS SUMMARY | 2024-03-31 11:35 | XMS_ITS | Encounter Summary ---
Author Organization [facility] Healthcare Address [address] [place] [address] Care Team Providers Care Grades 7 And 8 Visiting Teacher Name Role Phone Kraig Ching MD Primary Care Provider [phone] Gautam Cope MD Unavailable Tramaine Roe MD Unavailable [phone] Sukhwinder Uribe MD Unavailable [phone] Shay Guillermo MD Unavailable [phone] Marsha Landis RN Unavailable Unavailab le Reason for Visit * Reason Comments Back Pain Encounter Details Date Type Department Care Team (Latest Contact Info) Description 11/17/2018 2:51 PM CDT - 11/17/2018 11:59 PM CDT Hospital Encounter [facility] [address] [facility] [address] [place], [place] [id number] Maru Arreola MD PhD [address] [facility] [phone] [place], [place] [id number] Spinal stenosis of lumbar region with neurogenic [...] on file 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 Gender Identity Not on file Sexual [...] transforaminl epidural steroid injection-- please bring a local company hazmat driver documented in this encounter Medications at [...] mg total) by mouth daily Authorizing Provider: Lillain Cruz MD Notes: -- METFORMIN (GLUCOPHAGE) 500 [...] Maru Arreola MD PhD Instructor of Anesthesiology [facility] 11/17/2018 8:39 PM documented [...] Chronic Care Management No change(03/23 1:47 PM LOOM CHECKER) No Ingrid Oden, SHEA Note: Problem: [...] sciatica documented in this encounter Care Teams Grades 7 And 8 Visiting Teacher Relationship Specialty Start Date End Date Kraig Ching MD [address] [facility] [address] [place] [address] PCP - General 07/10/16 Gautam Cope MD [address] [facility] [address] [place] [address] Medical Oncologist/Replenishment Buyer Medical Oncology 08/18/18 Tramaine Roe MD [id number] [place] [address] Referring Physician Urology 08/18/18 Sukhwinder Uribe MD [id number] [place] [address] Consulting Physician Urology 08/18/18 Shay Guillermo MD [id number] [place] [address] Referring Physician Urology 08/18/18 Marsha Landis, RN Registered Nurse 11/17/18 documented as of this encounter
--- OUTSIDE RECORDS SUMMARY | 2024-03-31 11:35 | XMS_ITS | Encounter Summary ---
Author Organization [facility] Address [address] [place] [address] Phone Care Team Providers Care Coordinator Volunteer Services Name Role Phone Kraig Ching MD Primary Care Provider [phone] Gautam Cope MD Unavailable Tramaine Roe MD Unavailable [phone] Sukhwinder Uribe MD Unavailable [phone] Shay Guillermo MD Unavailable [phone] Reason for Visit * Consultation (Routine) - Authorized Specialty Diagnoses / Procedures Referred By Contac t Referred To Contact Oncology Diagnoses Prostate cancer (HCC) Tramaine Roe MD [address] [facility] [address] [place] [address] Phone: tel: fax: Gautam Cope MD [address] [facility], [address] [place] [address] Phone: tel: fax: Referral ID Status Reason Start Date Expiration Date Visits Requested Visits Authorized [id number] Authorized Specialty Services Required 08/15/2018 04/11/2024 99 [phone] Encounter Details Date Type Department Care Team (Late st Contact Info) Description 09/06/2018 3:30 PM CDT Lab [facility] Oncology [facility] Advanced Medicine 7th [place] [address] [place] [id number] Prostate cancer (CMS/HCC) Social History Tobacco Use Types Packs/Day Years Used Date Smoking Tobacco: Former Smokeless Tobacco: Former Comments:Smoking History Pac ks/day: 10 Cigarettes Alcohol Use Standard Drinks/Week Comments No 0 (1 standard drink = 0.6 oz pur e alcohol) quit 09/2017 Sex and Gender Information Value Date Recorded Sex Assigned at Not on file 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 Calcium 9.7 8.5 - 10.3 mg/dL [facility] Bilirubin, total 0.2 0.1 - 1.2 mg/dL [facility] Protein, pl 7.6 6.5 - 8.5 g/dL [facility] Albumin 4.5 3.5 - 5.0 g/dL [facility] Alk phos 109 40 - 130 Units/L [facility] ALT 27 7 - 55 Units/L [facility] AST 23 10 - 50 Units/L [facility] Blood specimen (specimen) 09/06/2018 3:45 PM CDT 09/06/2018 4:14 PM CDT Narrative [facility] - 09/06/2018 5:11 PM CDT us Gautam Cope MD LAB BLOOD ORDERABLES Final Resul t Performing Organization Address [facility] Co de Phone Number [facility] [place] [address] * Lactate dehydrogenase (LD) (09/06/2018 3:45 PM CDT) Lactate dehydrogenase (LDH) 162 100 - 250 Units/L [facility] Blood specimen (specimen) 09/06/2018 3:45 PM CDT 09/06/2018 4:14 PM CDT Narrative [facility] - 09/06/2018 5:11 PM CDT us Gautam Cope MD LAB BLOOD ORDERABLES Final Resul t Performing Organization Address City/[facility]/ZIP Co de Phone Number [facility] Department [place] [address] * (ABNORMAL) PSA diagnostic (09/06/2018 3:45 PM CDT) Pathologist [facility] PSA-Total 10.67(H) <=6.20 ng/mL [facility] Comment: [...] CDT 09/06/2018 4:14 PM CDT Rich [facility] - 09/06/2018 5:17 PM CDT us Gautam Cope MD LAB BLOOD ORDERABLES Final Resul t [facility] One [facility] Department [place] [address] * Differential, auto (09/06/2018 3:44 PM CDT) [facility] Neutrophil abs 6.1 1.8 - 6.6 K/cumm [facility] Comment:Testing performed by : [facility], [address] [place] [phone] Lymphocyte abs 2.2 1.2 - 3.3 K/cumm [facility] Comment:Testing performed by : [facility], [address] [place] [phone] Monocyte abs 1.0 0.2 - 1.2 K/cumm [facility] Comment:Testing performed by : [facility], [address] [place] [phone] Eosinophil abs 0.4 0.0 - 0.5 K/cumm [facility] Comment:Testing performed by : [facility], [address] [place] [phone] Basophil abs 0.1 0.0 - 0.2 K/cumm [facility] Comment:Testing performed by : [facility], [address] [place] [phone] Neutrophil pct 62.8 % [facility] Comment: Interpretive Data Percent cell count reference ranges are not reported, since discordance with absolute values may lead to misinterpretation of CBC data. Current Interpretive Data was last revised on 2017. Testing performed by: [facility], [address] [place] [phone] Lymphocyte pct 22.7 % [facility] Comment: Interpretive Data Percent cell count reference ranges are not reported, since discordance with absolute values may lead to misinterpretation of CBC data. Current Interpretive Data was last revised on 2017. Testing performed by: [facility], [address] [place] [phone] Monocyte pct 9.9 % [facility] Comment:Testing performed by : [address] [phone] Eosinophil pct 3.8 % [facility] Comment:Testing performed by : [facility], [address] [place] [phone] Basophil pct 0.8 % [facility] Comment:Testing performed by : [address] [phone] Blood specimen (specimen) 09/06/2018 3:44 PM CDT 09/06/2018 3:47 PM CDT Narrative [facility] - 09/06/2018 3:51 PM CDT us Gautam Cope MD LAB BLOOD ORDERABLES Final Resul t [facility] One [facility] Department [place] [address] * (ABNORMAL) CBC with auto differential (09/06/2018 3:44 PM CDT) WBC 9.8 3.8 - 9.8 K/cumm [facility] Comment:Testing performed by : [facility], [address] [place] [phone] Hgb 12.5(L) 13.8 - 17.2 g/dL [facility] Comment:Testing performed by : [facility], [address] [place] [address] Hct 36.9(L) 40.7 - 50.3 % [facility] Comment:Testing performed by : [address] [address] Plt 432 140 - 440 K/cumm [facility] Comment:Testing performed by : [facility], [address] [place] [address] MPV 7.1 6.8 - 10.4 fL [facility] Comment:Testing performed by : [address] [address] RBC 4.54 4.50 - 5.70 M/cumm [facility] Comment:Testing performed by : [address] [address] MCV 81.5 80.0 - 97.6 fL [facility] Comment:Testing performed by : [facility], [address] [place] [phone] MCH 27.6 26.7 - 33.7 pg [facility] Comment:Testing performed by : [address] [address] MCHC 33.9 32.7 - 35.5 g/dL [facility] Comment:Testing performed by : [address] [address] RDW CV 15.1(H) 11.8 - 14.6 % [facility] Comment:Testing performed by : [facility], [address] [place] [address] NRBC abs 0.01 0.00 - 0.01 K/cumm [facility] Comment:Testing performed by : [facility], [address] [address] Blood specimen (specimen) 09/06/2018 3:44 PM CDT 09/06/2018 3:47 PM CDT Narrative [facility] - 09/06/2018 3:51 PM CDT Gautam Cope MD LAB BLOOD ORDERABLES Final Resul t Performing Organization Address [facility] de Phone Number [facility] [place] [address] * Testosterone (09/06/2018 3:44 PM CDT) Testosterone 271 241 - 827 ng/dL [facility] Comment: Interpretive Data Male: ??Age 19-71 yrs: ?? 241 - 827 ng/dL Female: ??Age 15-75 yrs: ?? 14 - 76 ng/dL Current interpretive data was last revised on 2012. Blood specimen (specimen) 09/06/2018 3:44 PM CDT 09/06/2018 4:00 PM CDT Narrative [facility] - 09/06/2018 6:09 PM CDT Gautam Cope MD LAB BLOOD ORDERABLES Final Resul t Performing Organization Address [facility] Co de Phone Number [facility] [place] [address] documented in this encounter Visit Diagnoses Diagnosis Prostate cancer (HCC) Malignant neoplasm of prostate documented in this encounter Orders Appointment Requests Count Last Ordered Date Fi rst Ordered Date ONCBCN LAB APPOINTMENT 1 09/06/2018 documented in this encounter Care Teams Coordinator Volunteer Services Relationship Specialty Start Date End Date Kraig Ching MD [address] [facility] [address] [place] [address] PCP - General 07/10/16 Gautam Cope MD [address] [facility] [address] [place] [address] Medical Oncologist/Brick Yard Hand Medical Oncology 08/18/18 Tramaine Roe MD [address] [facility] [address] [place] [address] Referring Physician Urology 08/18/18 Sukhwinder Uribe MD [address] [facility] [address] [place] [address] Consulting Physician Urology 08/18/18 Shay Guillermo MD [address] [facility] [address] [place] [address] Referring Physician Urology 08/18/18 documented as of this encounter
--- OUTSIDE RECORDS SUMMARY | 2024-03-31 11:35 | XMS_ITS | Encounter Summary ---
Author Organization [facility] Address [address] [place] [address] Phone Care Team Providers Care Dress Cutter Name Role Phone Kraig Ching MD Primary Care Provider [phone] Gautam Cope MD Unavailable Tramaine Roe MD Unavailable [phone] Sukhwinder Uribe MD Unavailable [phone] Shay Guillermo MD Unavailable [phone] Reason for Visit * Reason Onset Date Comments Starting abiraterone 10/20/2018 he doesnt w ant to start October 28 Encounter Details Date Type Department Care Team (Late st Contact Info) Description 10/20/2018 Documentation [facility] Oncology [address] [facility] Advanced Medicine 7th [place] [address] [place] [phone] Muna Saleem RN Starting abiraterone (he doesnt [...] on file 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 Minimize further functional decline 2. Maximize quality of life 3. Control pain Strategies: - Activity/exercise program recommendation - Conservative stepwise pain medicine strategy with multi-disciplinary approach - Recommend healthy lifestyle strategies and compensatory methods as needed documented as of this encounter Visit Diagnoses Not on filedocumented in this encounter Care Teams Dress Cutter Relationship Specialty Start Date End Date Kraig Ching MD [address] [facility] [address] [place] [address] PCP - General 07/10/16 Gautam Cope MD [address] [facility] [address] [place] [address] Medical Oncologist/Computer Systems Designer Medical Oncology 08/18/18 Tramaine Roe MD [address] [facility] [address] [place] [address] Referring Physician Urology 08/18/18 Sukhwinder Uribe MD [address] [facility] [address] [place] [address] Consulting Physician Urology 08/18/18 Shay Guillermo MD [address] [facility] [address] [place] [address] Referring Physician Urology 08/18/18 documented as of this encounter
--- OUTSIDE RECORDS SUMMARY | 2024-03-31 11:35 | XMS_ITS | Encounter Summary ---
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 Gender Identity Not on file Sexual Orientation Not on file documented as of this encounter Plan of Treatment Not on file documented as of this encounter Visit Diagnoses Not on filedocumented in this encounter Care Teams Transfer And Line Up Worker Relationship Specialty Start Date End Date Kraig Ching MD [address] [place], [place] [id number] PCP - General 07/10/16 Gautam Cope MD [address] [place], [place] [id number] Medical Oncologist/Instrumentation Chemist Medical Oncology 08/18/18 Tramaine Roe MD [address] [facility] [address] [place] [address] Referring Physician Urology 08/18/18 Sukhwinder Uribe MD [address] [facility] [address] [place] [address] Consulting Physician Urology 08/18/18 Shay Guillermo MD [address] [facility] [address] [place] [address] Referring Physician Urology 08/18/18 documented as of this encounter
--- OUTSIDE RECORDS SUMMARY | 2024-03-31 11:35 | XMS_ITS | Encounter Summary ---
Author Organization [facility] Address [address] [facility] [address] [place] [address] Care Team Providers Care Booster Operator Name Role Phone Kraig Ching MD Primary Care Provider [phone] Gautam Cope MD Unavailable Tramaine Roe MD Unavailable [phone] Sukhwinder Uribe MD Unavailable Shay Guillermo MD Unavailable [phone] Marsha Landis RN Unavailable Unavailab le Reason for Visit * Reason Comments Chronic Condition Encounter Details Date Type Department Care Team (Late st Contact Info) Description 11/17/2018 1:15 PM CDT Office Visit [facility] [address] [facility] [address] [place] [phone] Katherine Del Rio PA [address] [facility] [address] [place] [address] Type 2 diabetes mellitus with [...] on file 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 Daily foot inspections advised. Continue with current medications, low carb diet and exercise. Hyperlipidemia associated with type 2 diabetes mellitus ([facility]) Comments: Lab today. Continue pravastatin. 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 Labs today. Continue lisinopril and chlorthalidone. Orders: - Comprehensive metabolic panel; Future - CBC with auto differential; Future Prostate cancer ([facility]) Comments: Recent urology notes and imaging reviewed. Continue management per urology. PAF (paroxysmal atrial fibrillation) ([facility]) Comments: RRR today. Continue diltiazem. Spinal [...] Chronic Care Management No change(03/23 1:47 PM CENTER PUNCH OPERATOR) No Ingrid Oden RN Note: Problem: [...] WBC 11.8(H) 3.8 - 9.9 K/cumm [facility] Hgb 12.6(L) 13.0 - 17.5 g/dL [facility] Hct 38.7(L) 38.9 - 50.3 % [facility] Plt 401(H) 150 - 400 K/cumm [facility] MPV 9.8 9.1 - 12.3 fL [facility] RBC 4.49 4.30 - 5.80 M/cumm [facility] MCV 86.2 81.3 - 96.4 fL [facility] MCH 28.1 27.1 - 33.3 pg [facility] MCHC 32.6 32.3 - 35.7 g/dL [facility] RDW CV 15.1(H) 11.1 - 14.9 % [facility] RDW SD 47.7 35.7 - 48.1 fL [facility] NRBC abs 0.00 0.00 - 0.01 K/cumm [facility] Blood specimen (specimen) 11/17/2018 2:10 PM CDT 11/17/2018 6:16 PM CDT Katherine ESQUIVEL LAB BLOOD ORDERABLES Final Result [facility] One [facility] [place] [address] * (ABNORMAL) Lipid panel (11/17/2018 2:10 PM CDT) Cholesterol 226(H) 30 - 199 mg/dL [facility] Comment: Interpretive Data Ages < or [...] revised on 2017. Triglycerides 327(H) <=149 mg/dL [facility] Comment: Interpretive Data Ages < or [...] on 2017. HDL 41 >=40 mg/dL [facility] Comment: Interpretive Data Ages < or [...] on 2017. LDL, calculated 120 <=129 mg/dL [facility] Comment: Interpretive Data Ages < or [...] BLOOD ORDERABLES Final Result [facility] One [facility] [place] [address] * (ABNORMAL) Comprehensive metabolic panel (11/17/2018 2:10 PM CDT) Sodium 138 135 - 145 mmol/L [facility] Potassium, pl 5.2(H) 3.3 - 4.9 mmol/L [facility] Chloride 103 97 - 110 mmol/L [facility] CO2 26 22 - 32 mmol/L [facility] Anion gap 9 2 - 15 mmol/L [facility] BUN 41(H) 8 - 25 mg/dL [facility] Creatinine 1.66(H) 0.80 - 1.30 mg/dL [facility] Glucose 139 70 - 199 mg/dL [facility] Comment: Interpretive Data Fasting glucose >/= [...] 2017. Calcium 9.9 8.5 - 10.3 mg/dL [facility] Bilirubin, total 0.4 0.1 - 1.2 mg/dL [facility] Protein, pl 7.4 6.5 - 8.5 g/dL [facility] Albumin 4.4 3.5 - 5.0 g/dL [facility] Alk phos 117 40 - 130 Units/L [facility] ALT 43 7 - 55 Units/L [facility] AST 23 10 - 50 Units/L [facility] Blood specimen (specimen) 11/17/2018 2:10 PM CDT 11/17/2018 6:16 PM CDT Katherine ESQUIVEL LAB BLOOD ORDERABLES Final Result [facility] One [facility] Department of Laboratories [place], [place] [id number] documented in this encounter Visit Diagnoses Diagnosis [...] 11/17/2018 documented in this encounter Care Teams Booster Operator Relationship Specialty Start Date End Date Kraig Ching MD [address] [place] [address] PCP - General 07/10/16 Gautam Cpoe MD [address] [place] [address] Medical Oncologist/Forklift Picker Medical Oncology 08/18/18 Tramaine Roe MD [address] [place] [address] Referring Physician Urology 08/18/18 Sukhwinder Uribe MD [address] [place] [address] Consulting Physician Urology 08/18/18 Shay Guillermo MD [address] [place] [address] Referring Physician Urology 08/18/18 Marsha Landis, RN Registered Nurse 11/17/18 documented as of this encounter
--- OUTSIDE RECORDS SUMMARY | 2024-03-31 11:35 | XMS_ITS | Encounter Summary ---
Author Organization [facility] Address [address] [place] [address] Phone Care Team Providers Care School Custodian Name Role Phone Kraig Ching MD Primary Care Provider [phone] Gautam Cope MD Unavailable Tramaine Roe MD Unavailable [phone] Sukhwinder Uribe MD Unavailable [phone] Shay Guillermo MD Unavailable [phone] Encounter Details Date Type Department Care Team (Late st Contact Info) Description 10/18/2018 Orders Only [facility] Oncology [address] [facility] Advanced Medicine 7th [place] [address] [place] [phone] Muna Saleem RN Prostate cancer (CMS/HCC) (Primary [...] on file 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 Gender Identity Not on file Sexual [...] Chronic Care Management No change(03/23 1:47 PM BAR TENDER) No Ingrid Oden, RN Note: Problem: [...] prostate documented in this encounter Care Teams School Custodian Relationship Specialty Start Date End Date Kraig Ching MD [address] [place] [address] PCP - General 07/10/16 Gautam Cope MD [address] [place] [address] Medical Oncologist/Bumper Machine Operator Medical Oncology 08/18/18 Tramaine Roe MD [address] [place] [address] Referring Physician Urology 08/18/18 Sukhwinder Uribe MD [address] [place] [address] Consulting Physician Urology 08/18/18 Shay Guillermo MD [address] [place] [address] Referring Physician Urology 08/18/18 documented as of this encounter
--- OUTSIDE RECORDS SUMMARY | 2024-03-31 11:35 | XMS_ITS | Encounter Summary ---
Author Organization [facility] Address [address] [place] [address] Care Team Providers Care Business Continuity Consultant Name Role Phone Kraig Ching MD Primary Care Provider [phone] Gautam Cope MD Unavailable Tramaine Roe MD Unavailable [phone] Sukhwinder Uribe MD Unavailable [phone] Shay Guillermo MD Unavailable [phone] Encounter Details Date Type Department Care Team (Late st Contact Info) Description 08/29/2018 8:00 PM CDT Lab [address] [address] Social History Tobacco Use Types Packs/Day Years Used Date Smoking Tobacco: Former Smokeless Tobacco: Former Comments:Smoking History Pac ks/day: 10 Cigarettes Alcohol Use Standard Drinks/Week Comments No 0 (1 standard drink = 0.6 oz pur e alcohol) quit 09/2017 Sex and Gender Information Value Date Recorded Sex Assigned at Not on file 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 [address] [place] [address] PCP - General 07/10/16 Gautam Cope MD [address] [facility] [address] [place] [address] Medical Oncologist/Boring Machine Set Up Operator Medical Oncology 08/18/18 Tramaine Roe MD [address] [facility] [address] [place] [address] Referring Physician Urology 08/18/18 Sukhwinder Uribe MD [address] [facility] [address] [place] [address] Consulting Physician Urology 08/18/18 Shay Guillermo MD [address] [facility] [address] [place] [address] Referring Physician Urology 08/18/18 documented as of this encounter
--- OUTSIDE RECORDS SUMMARY | 2024-03-31 11:36 | XMS_ITS | Encounter Summary ---
Author Organization [facility] [employer] [facility] Address [address] [place] [address] Phone Care Team Providers Care Intermediate Teacher Name Role Phone Kraig Ching MD Primary Care Provider [phone] Encounter Details Date Type Department Care Team (Late st Contact Info) Description 08/11/[address] [facility] ([facility] - [facility] Urology [address] [facility] 11th [place] [address] [place] [address] Tramaine Roe MD [address] 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
--- OUTSIDE RECORDS SUMMARY | 2024-03-31 11:36 | XMS_ITS | Encounter Summary ---
Author Organization [facility] Address [address] [place] [address] Care Team Providers Care Loan Assistant Name Role Phone Kraig Ching MD Primary Care Provider [phone] Reason for Referral * Diagnostic Imaging (Routine) - Closed Specialty Diagnoses / Procedures Referred By Saleem narvaez Referred To Contact Radiology Diagnoses Malignant neoplasm of prostate (HCC) Procedures MRI Pelvis Prostate W WO Contrast Tramaine Roe MD Phone: tel: fax: [address] [address] Referral ID Status Reason Start Date Expiration Date Visits Re quested Visits Authorized [id number] Closed 07/19/2018 01/28/2020 1 1 Reason for Visit * Diagnostic Imaging (Routine) - Closed Specialty Diagnoses / Procedures Referred By Saleem narvaez Referred To Contact Radiology Diagnoses Malignant neoplasm of prostate (HCC) Procedures MRI Pelvis Prostate W WO Contrast Tramaine Roe MD Phone: tel: fax: [address] [address] Referral ID Status Reason Start Date Expiration Date Visits Re quested Visits Authorized [id number] Closed 07/19/2018 01/28/2020 1 1 Encounter Details Date Type Department Care Team (Latest Contact Info) Description 08/10/2018 6:04 AM CDT - 08/10/2018 7:39 AM CDT Hospital Encounter [facility] Radiology [address] [place], [place] [address] [address] Tramaine Roe MD [address] [place] [address] Malignant neoplasm of prostate (CMS/HCC) Discharge Disposition: [...] file 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
--- OUTSIDE RECORDS SUMMARY | 2024-03-31 11:36 | XMS_ITS | Encounter Summary ---
Author Organization 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
--- OUTSIDE RECORDS SUMMARY | 2024-03-31 11:36 | XMS_ITS | Encounter Summary ---
Author Organization [facility] Address [address] [facility] [address] [place] [address] Care Team Providers Care Registration Clerk Name Role Phone Kraig Ching MD Primary Care Provider [phone] Encounter Details Date Type Department Care Team (Late st Contact Info) Description 08/02/2018 Telephone [facility] [address] [facility] [address] [place] [address] Kraig Ching MD [address] [facility] [address] [place], [place] [id number] Social History Tobacco Use Types Packs/Day Years Used Date Smoking Tobacco: Former Smokeless Tobacco: Former Comments:Smoking History Pac ks/day: 10 Cigarettes Alcohol Use Standard Drinks/Week Comments No 0 (1 standard drink = 0.6 oz pur e alcohol) quit 09/2017 Sex and Gender Information Value Date Recorded Sex Assigned at Not on file 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 No need to call. * Telephone Encounter - Vivi Ureña - 08/02/2018 3:00 PM CDT Kadi from [facility] call to get order clarification: on Insulin training to properly educcate pt of Diabetes self training. Kadi can be reached at [phone] documented in this encounter Plan of Treatment Not on file documented as of this encounter Visit Diagnoses Not on filedocumented in this encounter Care Teams Registration Clerk Relationship Specialty Start Date End Date Kraig Ching MD [address] [address] PCP - General 07/10/16 documented as of this encounter
--- OUTSIDE RECORDS SUMMARY | 2024-03-31 11:36 | XMS_ITS | Encounter Summary ---
Author Organization [facility] Address [address] [place] [address] Phone Care Team Providers Care Mail Distributor Name Role Phone Kraig Ching MD Primary Care Provider [phone] Gautam Cope MD Unavailable Tramaine Roe MD Unavailable [phone] Sukhwinder Uribe MD Unavailable [phone] Shay Guillermo MD Unavailable [phone] Encounter Details Date Type Department Care Team (Late st Contact Info) Description 08/24/2018 11:00 AM CDT Office Visit [facility] Nephrology 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 Prostate Cancer in 1999, [id number], status post radical prostatectomy with subsequent external [...] sounds normal. No masses. 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 No focal motor deficits PSYCH: [...] follow up in 6 months with labs. [facility] Nephrology Cosigned by Lin Guerrero [...] Large Ketones, ur, POC Negative Negative Specific Delta, POC 1.010 1.005 - 1.030 Blood, ur, POC Negative Negative pH, ur, POC 6.0 5.0 - 8.0 Protein, ur, POC Trace(A) Negative Urobilinogen, urine, POC 0.2 0.2 - 1.0 mg/dL Nitrite, ur, POC Negative Negative Leukocytes, ur, POC Negative Negative Lot Number [id number] Urine 08/24/2018 11:2 7 AM CDT Lin Guerrero MD POINT OF CARE TEST ORDERABLES Fi nal Result documented in this encounter Visit Diagnoses Diagnosis Stage 3 chronic kidney disease (HCC) documented in this encounter Care Teams Mail Distributor Relationship Specialty Start Date End Date Kraig Ching MD [address] [facility] [address] [place] [address] PCP - General 07/10/16 Gautam Cope MD [address] [facility] [address] [place] [address] Medical Oncologist/Diesel Mechanic Construction Medical Oncology 08/18/18 Tramaine Roe MD [address] [facility] [address] [place] [address] Referring Physician Urology 08/18/18 Sukhwinder Uribe MD [address] [facility] [address] [place] [address] Consulting Physician Urology 08/18/18 Shay Guillermo MD [address] [facility] [address] [place] [address] Referring Physician Urology 08/18/18 documented as of this encounter
--- OUTSIDE RECORDS SUMMARY | 2024-03-31 11:36 | XMS_ITS | Encounter Summary ---
Author Organization [facility] Address [address] [place] [address] Phone Care Team Providers Care Transfer Worker Name Role Phone Kraig Ching MD Primary Care Provider [phone] Gautam Cope MD Unavailable Tramaine Roe MD Unavailable [phone] Sukhwinder Uribe MD Unavailable Shay Guillermo MD Unavailable [phone] Encounter Details Date Type Department Care Team (Late st Contact Info) Description 08/23/2018 Orders Only [facility] Scheduling [address] [place] [address] Bella Mann CMA Social History Tobacco Use Types Packs/Day Years Used Date Smoking Tobacco: Former Smokeless Tobacco: Former Comments:Smoking History Pac ks/day: 10 Cigarettes Alcohol Use Standard Drinks/Week Comments No 0 (1 standard drink = 0.6 oz pur e alcohol) quit 09/2017 Sex and Gender Information Value Date Recorded Sex Assigned at Not on file 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 Gender Identity Not on file Sexual Orientation [...] documented as of this encounter Care Teams Transfer Worker Relationship Specialty Start Date End Date Kraig Ching MD [address] [place] [address] PCP - General 07/10/16 Gautam Cope MD [address] [place] [address] Medical Oncologist/Bench Carpenter Medical Oncology 08/18/18 Tramaine Roe MD [address] [place] [address] Referring Physician Urology 08/18/18 Sukhwinder Uribe MD [address] [place] [address] Consulting Physician Urology 08/18/18 Shay Guillermo MD [address] [place] [address] Referring Physician Urology 08/18/18 documented as of this encounter
--- OUTSIDE RECORDS SUMMARY | 2024-03-31 11:36 | XMS_ITS | Encounter Summary ---
Author Organization [facility] Address [address] [place] [address] Care Team Providers Care Lining Machine Tender Name Role Phone Kraig Ching MD Primary Care Provider [phone] Encounter Details Date Type Department Care Team (Late st Contact Info) Description 03/07/2018 1:30 PM ENDOCRINOLOGY PHYSICIAN Lab [address] [address] Social History Tobacco Use Types Packs/Day Years Used Date Smoking Tobacco: Former Smokeless Tobacco: Former Comments:Smoking History Pac ks/day: 10 Cigarettes Alcohol Use Standard Drinks/Week Comments No 0 (1 standard drink = 0.6 oz pur e alcohol) quit 09/2017 Sex and Gender Information Value Date Recorded Sex Assigned at Not on file Legal Sex Male 4:46 PM ENDOCRINOLOGY PHYSICIAN Gender Identity Not on file Sexual Orientation Not on file documented as of this encounter Plan of Treatment Not on file documented as of this encounter Procedures Procedure Name Priority Date/Time Associated Diagnosis Comments RENAL FUNCTION PANEL Routine 03/07/2018 11:19 AM ENDOCRINOLOGY PHYSICIAN documented in this encounter Results * (ABNORMAL) Renal function panel (03/07/2018 11:19 AM ENDOCRINOLOGY PHYSICIAN) Sodium 140 135 - 145 mmol/L [facility] Potassium, pl 4.0 3.3 - 4.9 mmol/L [facility] Chloride 104 97 - 110 mmol/L [facility] CO2 27 22 - 32 mmol/L [facility] Anion gap 9 2 - 15 mmol/L [facility] BUN 31(H) 8 - 25 mg/dL [facility] Creatinine 1.54(H) 0.80 - 1.30 mg/dL [facility] Glucose 140 70 - 199 mg/dL [facility] 2017. Calcium 9.4 8.5 - 10.3 mg/dL [facility] Phosphorus, pl 3.1 2.3 - 4.5 mg/dL [facility] Albumin 4.8 3.5 - 5.0 g/dL [facility] Blood specimen (specimen) 03/07/2018 11:19 AM ENDOCRINOLOGY PHYSICIAN 03/07/2018 1:30 PM ENDOCRINOLOGY PHYSICIAN Narrative [facility] - 03/07/2018 2:25 PM ENDOCRINOLOGY PHYSICIAN Medicine LAB BLOOD ORDERABLES Final Resul t [facility] Department [place] [address] documented in this encounter Visit Diagnoses Not on filedocumented in this encounter Care Teams Lining Machine Tender Relationship Specialty Start Date End Date Kraig Ching MD [address] [facility] [address] [place] [address] PCP - General 07/10/16 documented as of this encounter
--- OUTSIDE RECORDS SUMMARY | 2024-03-31 11:36 | XMS_ITS | Encounter Summary ---
Author Organization [facility] Address [address] [facility] [address] [place] [address] Care Team Providers Care Microbiology Technician Name Role Phone Kraig Ching MD Primary Care Provider [phone] Reason for Visit * Reason Onset Date Comments Sore Throat 05/05/2018 Encounter Details Date Type Department Care Team (Late st Contact Info) Description 05/06/2018 Nurse Triage [facility] [address] [facility] [address] [place] [address] Kraig Ching MD [address] [facility] [address] [place], [place] [id number] Social History Tobacco Use Types Packs/Day Years Used Date Smoking Tobacco: Former Smokeless Tobacco: Former Comments:Smoking History Pac ks/day: 10 Cigarettes Alcohol Use Standard Drinks/Week Comments No 0 (1 standard drink = 0.6 oz pur e alcohol) quit 09/2017 Sex and Gender Information Value Date Recorded Sex Assigned at Not on file Legal Sex Male 4:46 PM REGIONAL PSYCHIATRIC DIRECTOR Gender Identity Not on file Sexual Orientation Not on file documented as of this encounter Miscellaneous Notes * Telephone Encounter - Ingrid Delacruz MA - 05/06/2018 3:45 PM CST lvm that rx as sent to pharmacy ONAL PSYCHIATRIC DIRECTOR * Telephone Encounter - Kraig Ching MD - 05/06/2018 3:29 PM CST Antibiotic set to [facility]. ONAL PSYCHIATRIC DIRECTOR * Telephone Encounter - Jamaica Shaikh RN - 05/06/2018 2:53 PM CST Reason for Disposition ??? Earache also present Protocols used: SORE OICDNO-LVHQI-OX Pt has a hx of DM and COPD.Pt is calling with sx's of a sore throat and L ear pain x 1-2 days. Pt is able to swallow and take in fluids. Pt denies fever. Denies drainage from ear. Declines appt and is requesting abx. Pt states Dr Ching will usually prescribe abx before his sx's worsen. Please advise. [phone]. Please call Rx to [phone]. Care advice given including increased fluids. Pt verbalized understanding and will call with worsening sx's ONAL PSYCHIATRIC DIRECTOR * Telephone Encounter - Jamaica Shaikh RN - 05/06/2018 2:48 PM CST Regarding: Sore throat and earache by throat. ----- Message from Vivian Castanon sent at 05/06/2018 2:36 PM REGIONAL PSYCHIATRIC DIRECTOR ----- Symptom Based Call Chief Complaint: Sore throat and earache by throat. Duration: A day and half Appointment Details: Non-emergent Caller's Callback #: [phone] (W) Additional Comments: Wants Dr. Ching to send him antibiotics to [facility]: [phone] (Phone) ONAL PSYCHIATRIC DIRECTOR documented in this encounter Plan of Treatment Not on file documented as of this encounter Visit Diagnoses Not on filedocumented in this encounter Care Teams Microbiology Technician Relationship Specialty Start Date End Date Kraig Ching MD [address] [facility] [address] [place] [address] PCP - General 07/10/16 documented as of this encounter
--- OUTSIDE RECORDS SUMMARY | 2024-03-31 11:36 | XMS_ITS | Encounter Summary ---
Author Organization [facility] Address [address] [facility] [address] [place] [address] Care Team Providers Care Braker Passenger Train Name Role Phone Kraig Ching MD Primary Care Provider [phone] Gautam Cope MD Unavailable Tramaine Roe MD Unavailable [phone] Sukhwinder Uribe MD Unavailable [phone] Shay Guillermo MD Unavailable [phone] Reason for Visit * Reason Comments Chronic Condition Encounter Details Date Type Department Care Team (Late st Contact Info) Description 08/29/2018 3:30 PM CDT Office Visit [facility] [address] [facility] [address] [place] [address] Katherine Del Rio PA [address] [facility] [address] [place] [address] Type 2 diabetes mellitus with [...] on file 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 He saw a personal development educator and has been instructed in how [...] without long-term current use of insulin ([facility]) (Primary) Comments: Uncontrolled. Lantus prescribed. Orders: - insulin glargine (LANTUS U-100 INSULIN) 100 unit/mL injection; Injected daily as directed. (Patient taking differently: Inject 10 Units under the skin daily Injected daily as directed.) Essential hypertension Comments: BP at goal. Lab today. Continue lisinopril and chlorthalidone. Orders: - Basic metabolic panel; Future Stage 3 chronic kidney disease ([facility]) Comments: Avoid nephrotoxins. Continue management per nephrology. Obesity (BMI 30-39.9) BMI 30.0-30.9,adult [facility] Landry documented in this encounter Plan of Treatment Not on file documented as of this encounter Goals Goal Patient Goal Type Associated Problems Recent Progress Patient-Stated? Author CCM Chronic Pain Care Plan Chronic Care Management No change(03/23 1:47 PM CHILDREN'S LIBRARIAN) Ingrid Mcdaniels, RN Note: Problem: Chronic Pain [...] 137 135 - 145 mmol/L [facility] Potassium, pl 4.2 3.3 - 4.9 mmol/L [facility] Chloride 100 97 - 110 mmol/L [facility] CO2 25 22 - 32 mmol/L [facility] Anion gap 12 2 - 15 mmol/L [facility] BUN 35(H) 8 - 25 mg/dL [facility] Creatinine 1.91(H) 0.80 - 1.30 mg/dL [facility] Glucose 106 70 - 199 mg/dL [facility] Comment: Interpretive Data Fasting glucose [...] 2017. Calcium 9.6 8.5 - 10.3 mg/dL [facility] Blood specimen (specimen) 08/29/2018 4:43 PM CDT 08/29/2018 7:56 PM CDT Narrative [facility] - 08/29/2018 8:26 PM CDT us Katherine ESQUIVEL LAB BLOOD ORDERABLES Final Result [facility] One [facility] Department [place] [address] * DIABETES EYE EXAM (06/29/2018) Pathologist [facility] Diabetic Eye Exam Normal us Historical Provider [...] 23 added in this encounter Care Teams Braker Passenger Train Relationship Specialty Start Date End Date Kraig Ching MD [address] [place] [address] PCP - General 07/10/16 Gautam Cope MD [address] [place] [address] Medical Oncologist/Scientific Aide Medical Oncology 08/18/18 Tramaine Roe MD [address] [place] [address] Referring Physician Urology 08/18/18 Sukhwinder Uribe MD [address] [place] [address] Consulting Physician Urology 08/18/18 Shay Guillermo MD [address] [place] [address] Referring Physician Urology 08/18/18 documented as of this encounter
--- OUTSIDE RECORDS SUMMARY | 2024-03-31 11:36 | XMS_ITS | Encounter Summary ---
Author Organization [facility] Address [address] [place] [address] Care Team Providers Care Foundation Stage Teacher Name Role Phone Kraig Ching MD Primary Care Provider [phone] Reason for Visit * Reason Onset Date Comments Dr Ching - Medical Question 08/02/2018 Encounter Details Date Type Department Care Team (Late st Contact Info) Description 08/02/2018 Telephone [facility] [address] [facility] [address] [place] [address] Kraig Ching MD [address] [facility] [address] [place], [place] [id number] Dr Ching - Medical Question Social History Tobacco Use Types Packs/Day Years Used Date Smoking Tobacco: Former Smokeless Tobacco: Former Comments:Smoking History Pac ks/day: 10 Cigarettes Alcohol Use Standard Drinks/Week Comments No 0 (1 standard drink = 0.6 oz pur e alcohol) quit 09/2017 Sex and Gender Information Value Date Recorded Sex Assigned at Not on file 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 * Telephone Encounter - Natasha Rodriguez - 08/02/2018 11:41 AM CDT [facility] is asking if Dr Ching can sign orders for patient to haver diabetic and insulin training. 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 She states the form is a requirement of the Diabetic Association. She say the form is for diabetic self management training. She states she is faxing the order to [phone]. Please advise documented in this encounter Plan of Treatment Not on file documented as of this encounter Visit Diagnoses Not on filedocumented in this encounter Care Teams Foundation Stage Teacher Relationship Specialty Start Date End Date Kraig Ching MD [address] [address] PCP - General 07/10/16 documented as of this encounter
--- OUTSIDE RECORDS SUMMARY | 2024-03-31 11:36 | XMS_ITS | Encounter Summary ---
Author Organization [facility] Address [address] [place] [address] Phone Care Team Providers Care Home Health Care Worker Name Role Phone Kraig Ching MD Primary Care Provider [phone] Encounter Details Date Type Department Care Team (Late st Contact Info) Description 08/11/2018 Orders Only [facility] ([facility]) - [facility] Urology [address] [facility] 11th [place] [address] [place] [address] Tramaine Roe MD [address] [facility] [address] [place] [address] Social History Tobacco Use Types Packs/Day Years Used Date Smoking Tobacco: Former Smokeless Tobacco: Former Comments:Smoking History Pac ks/day: 10 Cigarettes Alcohol Use Standard Drinks/Week Comments No 0 (1 standard drink = 0.6 oz pur e alcohol) quit 09/2017 Sex and Gender Information Value Date Recorded Sex Assigned at Not on file 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
--- OUTSIDE RECORDS SUMMARY | 2024-03-31 11:36 | XMS_ITS | Encounter Summary ---
Author Organization [facility] Address [address] [place] [address] Phone Care Team Providers Care Metal Engineering Process Worker Name Role Phone Kraig Ching MD Primary Care Provider [phone] Encounter Details Date Type Department Care Team (Late st Contact Info) Description 03/10/2018 Telephone [facility] Cardiology [address] [facility] Advanced Medicine 8th [place] [address] [place] [id number] Junior Gonzalez MD [address] [facility] [address] [place] [address] Social History Tobacco Use Types Packs/Day Years Used Date Smoking Tobacco: Former Smokeless Tobacco: Former Comments:Smoking History Pac ks/day: 10 Cigarettes Alcohol Use Standard Drinks/Week Comments No 0 (1 standard drink = 0.6 oz pur e alcohol) quit 09/2017 Sex and Gender Information Value Date Recorded Sex Assigned at Not on file Legal Sex Male 4:46 PM RIP/MOULD OPERATOR Gender Identity Not on file Sexual Orientation Not on file documented as of this encounter Miscellaneous Notes * Telephone Encounter - Comfort العراقي RN - 03/23/2018 3:19 PM RIP/MOULD OPERATOR See result notes /MOULD OPERATOR * Telephone Encounter - Treeza Alex - 03/10/2018 10:00 AM CST Lisa Pt states returning call /MOULD OPERATOR documented in this encounter Plan of Treatment Not on file documented as of this encounter Visit Diagnoses Not on filedocumented in this encounter Care Teams Metal Engineering Process Worker Relationship Specialty Start Date End Date Kraig Ching MD [address] [facility] [address] [place] [address] PCP - General 07/10/16 documented as of this encounter
--- OUTSIDE RECORDS SUMMARY | 2024-03-31 11:36 | XMS_ITS | Encounter Summary ---
Author Organization [facility] Address [address] [facility] [address] [place] [address] Care Team Providers Care Fire Dispatcher Name Role Phone Kraig Ching MD Primary Care Provider [phone] Reason for Referral * Consultation (Routine) - Closed Specialty Diagnoses / Procedures Referred By Contac t Referred To Contact Pain Management Diagnoses Sciatica, left side Kraig Ching MD Phone: tel: fax: [facility] Medicine Referral ID Status Reason Start Date Expiration Date V isits Requested Visits Authorized [id number] Closed Specialty Services Required 07/21/2018 01/30/2020 6 6 Question Answer Please select the performing region: [facility] [[id number]] # of visits: 6 Comments [facility] pain management Encounter Details Date Type Department Care Team (Late st Contact Info) Description 07/21/2018 Orders Only [facility] [address] [facility] [address] [place] [address] Kraig Ching MD [address] [facility] [address] [place], [place] [id number] Sciatica, left side (Primary Dx) Social History Tobacco Use Types Packs/Day Years Used Date Smoking Tobacco: Former Smokeless Tobacco: Former Comments:Smoking History Pac ks/day: 10 Cigarettes Alcohol Use Standard Drinks/Week Comments No 0 (1 standard drink = 0.6 oz pur e alcohol) quit 09/2017 Sex and Gender Information Value Date Recorded Sex Assigned at Not on file 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
--- OUTSIDE RECORDS SUMMARY | 2024-03-31 11:36 | XMS_ITS | Encounter Summary ---
Author Organization [facility] Healthcare Address [address] [place] [address] Care Team Providers Care Dog Trainer Name Role Phone Kraig Ching MD Primary Care Provider [phone] Encounter Details Date Type Department Care Team (Late st Contact Info) Description 07/15/2018 10:10 PM CDT Lab [address] [address] Social History Tobacco Use Types Packs/Day Years Used Date Smoking Tobacco: Former Smokeless Tobacco: Former Comments:Smoking History Pac ks/day: 10 Cigarettes Alcohol Use Standard Drinks/Week Comments No 0 (1 standard drink = 0.6 oz pur e alcohol) quit 09/2017 Sex and Gender Information Value Date Recorded Sex Assigned at Not on file 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
--- OUTSIDE RECORDS SUMMARY | 2024-03-31 11:36 | XMS_ITS | Encounter Summary ---
Author Organization [facility] Address [address] [facility] [address] [place] [address] Care Team Providers Care Customer Experience Professional Name Role Phone Kraig Ching MD Primary Care Provider [phone] Encounter Details Date Type Department Care Team (Late st Contact Info) Description 05/06/2018 Orders Only [facility] [address] [facility] [address] [place] [phone] Kraig Ching MD [address] [facility] [address] [place], [place] [id number] Social History Tobacco Use Types Packs/Day Years Used Date Smoking Tobacco: Former Smokeless Tobacco: Former Comments:Smoking History Pac ks/day: 10 Cigarettes Alcohol Use Standard Drinks/Week Comments No 0 (1 standard drink = 0.6 oz pur e alcohol) quit 09/2017 Sex and Gender Information Value Date Recorded Sex Assigned at Not on file Legal Sex Male 4:46 PM REGISTERED DIET TECHNICIAN Gender Identity Not on file Sexual [...] on filedocumented in this encounter Care Teams Customer Experience Professional Relationship Specialty Start Date End Date Kraig Ching MD [address] [facility] [address] [place], [place] [id number] PCP - General 07/10/16 documented as of this encounter
--- OUTSIDE RECORDS SUMMARY | 2024-03-31 11:36 | XMS_ITS | Encounter Summary ---
Author Organization [facility] Address [address] [place] [address] Phone Care Team Providers Care Retail Assistant Manager Name Role Phone Kraig Ching MD Primary Care Provider [phone] Encounter Details Date Type Department Care Team (Late st Contact Info) Description 04/07/2018 Telephone [facility] Cardiology [address] [facility] Advanced Medicine 8th [place] [address] [place] [address] Junior Gonzalez MD [address] [facility] [address] [place] [address] Social History Tobacco Use Types Packs/Day Years Used Date Smoking Tobacco: Former Smokeless Tobacco: Former Comments:Smoking History Pac ks/day: 10 Cigarettes Alcohol Use Standard Drinks/Week Comments No 0 (1 standard drink = 0.6 oz pur e alcohol) quit 09/2017 Sex and Gender Information Value Date Recorded Sex Assigned at Not on file Legal Sex 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 No answer in lab. NG MACHINE OFFBEARER * Telephone Encounter - Wilmer Leigh - 04/07/2018 10:28 AM CST Would like to get clarification on blood work orders. NG MACHINE OFFBEARER * Telephone Encounter - Lucia Raymundo - 04/07/2018 10:24 AM GLUING MACHINE OFFBEARER Started in error NG MACHINE OFFBEARER documented in this encounter Plan of Treatment Not on file documented as of this encounter Visit Diagnoses Not on filedocumented in this encounter Care Teams Retail Assistant Manager Relationship Specialty Start Date End Date Kraig Ching MD [address] [address] PCP - General 07/10/16 documented as of this encounter
--- OUTSIDE RECORDS SUMMARY | 2024-03-31 11:36 | XMS_ITS | Encounter Summary ---
Author Organization [facility] Healthcare Address [address] [place] [address] Care Team Providers Care Furnace Operator Oil Or Gas Name Role Phone Kraig Ching MD Primary Care Provider [phone] Reason for Visit * Diagnostic Imaging (Routine) - Closed Specialty Diagnoses / Procedures Referred By Contac t Referred To Contact Diagnoses Malignant neoplasm of prostate (HCC) Procedures NM Bone Imaging Whole Body Nuclear Medicine bone scan multiple Tramaine Roe MD Phone: tel: fax: [address] [address] Referral ID Status Reason Start Date Expiration Date Visits Re quested Visits Authorized [id number] Closed 07/19/2018 01/28/2020 2 2 Encounter Details Date Type Department Care Team (Latest Contact Info) Description 08/10/2018 7:40 AM CDT - 08/10/2018 11:59 PM CDT Hospital Encounter [facility]iology [facility] [address] [place] [address] Tramaine Roe MD [address] [address] Malignant neoplasm of prostate (CMS/HCC) Discharge Disposition: [...] on file 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 Tramaine Roe MD [facility] Final Result documented in this [...] Antecubital documented in this encounter Care Teams Furnace Operator Oil Or Gas Relationship Specialty Start Date End Date Kraig Ching MD [address] [facility] [address] [place] [address] PCP - General 07/10/16 documented as of this encounter
--- OUTSIDE RECORDS SUMMARY | 2024-03-31 11:36 | XMS_ITS | Encounter Summary ---
Author Organization [facility] Address [address] [facility] [address] [place] [address] Care Team Providers Care Heavy Equipment Service Technician Name Role Phone Kraig Ching MD Primary Care Provider [phone] Reason for Referral * Diagnostic Imaging (Routine) - Closed Specialty Diagnoses / Procedures Referred By Contac t Referred To Contact Radiology Diagnoses Sciatica of left side Procedures MRI Lumbar Spine WO Contrast Kraig Ching MD Phone: tel: fax: [address] [address] Referral ID Status Reason Start Date Expiration Date Visits Re quested Visits Authorized [id number] Closed 07/15/2018 01/24/2020 1 1 * Diagnostic Imaging (Routine) - Closed Specialty Diagnoses / Procedures Referred By Contac t Referred To Contact Diagnoses Sciatica of left side Procedures XR Spine Lumbar Complete 4 Or More Kraig Ching MD Phone: tel: fax: [address] [address] Referral ID Status Reason Start Date Expiration Date Visits Re quested Visits Authorized [id number] Closed 07/15/2018 01/24/2020 1 1 Encounter Details Date Type Department Care Team (Late st Contact Info) Description 07/15/2018 3:00 PM CDT Office Visit [facility] [address] [facility] [address] [place] [address] Kraig Ching MD [address] [facility] [address] [place] [address] SBO (small bowel obstruction) (CMS/HCC) (Primary Dx); [...] on file 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 Continue current regimen. Limit nephrotoxins. Monitor creatinine. AvoidNSAIDS. Stage 3 chronic kidney disease ([facility]) (N18.3) Assessment & Plan: Limit nephrotoxins. Monitor creatinine. Avoid NSAIDS. Type 2 diabetes mellitus with stage 3 chronic kidney disease, without long-term current use of insulin ([facility]) (E11.22, N18.3) Assessment & Plan: Continue current [...] without complication, with long-term current use ofinsulin ([facility]/HCC) ([facility]) (Resolved 10/02/2023) Continue current Diabetic regimen. Advised annual eye exam. Limit nephrotoxins. Monitor creatinine.Avoid NSAIDS. He will monitor sugars for 3 weeks. Start Insulin if morning sugars are over 200. * Assessment & Plan Note - Kraig Ching MD - 07/15/2018 2:51 PM CDT Associated Problem(s): Chronic kidney disease, stage 3b ([facility]) Limit nephrotoxins. Monitor creatinine. Avoid NSAIDS. * Assessment & Plan Note - Kraig Ching MD - 07/15/2018 2:50 PM CDT Associated Problem(s): SBO (small bowel obstruction) (CMS/HCC) ([facility]) He improved with conservative treatment. 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 Continue current regimen. Limit [...] Electronically signed by: Joseph Infante M.D. Kraig Chign MD IM MRI PROCEDURES Edited Res ult [...] Hgb A1C 10.3(H) 4.0 - 5.6 % [facility] Estimated Average Glucose 249 mg/dL [facility] Comment: The ADA recommends reporting an estimated Average Glucose (eAG) with all Hemoglobin A1c results using the equation derived from a study of 507 normal and diabetic adults. ??Minority populations were underrepresented and children were not included. ?? (Diabetes Care 31:6611-9140, 2008). ??The eAG is not equivalent to a fasting glucose. Blood specimen (specimen) 07/15/2018 3:24 PM CDT 07/15/2018 10:06 PM CDT Narrative [facility] - 07/15/2018 10:35 PM CDT Kraig Ching MD LAB BLOOD ORDERABLES Final Re sult [facility] Department [place] [address] * (ABNORMAL) CBC with auto differential (07/15/2018 3:24 PM CDT) WBC 8.7 3.8 - 9.9 K/cumm [facility] Hgb 12.4(L) 13.0 - 17.5 g/dL [facility] Hct 38.9 38.9 - 50.3 % [facility] Plt 476(H) 150 - 400 K/cumm [facility] MPV 9.1 9.1 - 12.3 fL [facility] RBC 4.59 4.30 - 5.80 M/cumm [facility] MCV 84.7 81.3 - 96.4 fL [facility] MCH 27.0(L) 27.1 - 33.3 pg [facility] MCHC 31.9(L) 32.3 - 35.7 g/dL [facility] RDW CV 14.0 11.1 - 14.9 % [facility] RDW SD 43.2 35.7 - 48.1 fL [facility] NRBC abs 0.00 0.00 - 0.01 K/cumm [facility] Blood specimen (specimen) 07/15/2018 3:24 PM CDT 07/15/2018 10:06 PM CDT Narrative [facility] - 07/15/2018 10:28 PM CDT Kraig Ching MD LAB BLOOD ORDERABLES Final Re sult [facility] Department [place] [address] documented in this encounter Visit Diagnoses Diagnosis [...] side documented in this encounter Care Teams Heavy Equipment Service Technician Relationship Specialty Start Date End Date Kraig Ching MD [address] [facility] [address] [place] [address] PCP - General 07/10/16 documented as of this encounter
--- OUTSIDE RECORDS SUMMARY | 2024-03-31 11:36 | XMS_ITS | Encounter Summary ---
Author Organization [facility] Healthcare Address [address] [place] [address] Care Team Providers Care Hearing Healthcare Practitioner Name Role Phone Kraig Ching MD Primary Care Provider [phone] Reason for Referral * Diagnostic Imaging (Routine) - Closed Specialty Diagnoses / Procedures Referred By Saleem t Referred To Contact Radiology Diagnoses Sciatica of left side Procedures MRI Lumbar Spine WO Contrast Kraig Ching MD Phone: tel: fax: [address] [address] Referral ID Status Reason Start Date Expiration Date Visits Re quested Visits Authorized [id number] Closed 07/15/2018 01/24/2020 1 1 Reason for Visit * Diagnostic Imaging (Routine) - Closed Specialty Diagnoses / Procedures Referred By Saleem narvaez Referred To Contact Radiology Diagnoses Sciatica of left side Procedures MRI Lumbar Spine WO Contrast Kraig Ching MD Phone: tel: fax: [address] [address] Referral ID Status Reason Start Date Expiration Date Visits Re quested Visits Authorized [id number] Closed 07/15/2018 01/24/2020 1 1 Encounter Details Date Type Department Care Team (Latest Contact Info) Description 07/20/2018 11:17 AM CDT - 07/20/2018 11:59 PM CDT Hospital Encounter [facility]) [address] [place] [address] Kraig Ching MD [address] [facility] [address] [place] [address] Sciatica of left side Discharge Disposition: Discharge [...] on file 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
--- OUTSIDE RECORDS SUMMARY | 2024-03-31 11:36 | XMS_ITS | Encounter Summary ---
Author Organization [facility] Address [address] [place] [address] Phone Care Team Providers Care Collar Tailor Name Role Phone Kraig Ching MD Primary Care Provider [phone] Encounter Details Date Type Department Care Team [...] on file Legal Sex Male 4:46 PM ARCHEOLOGY FACULTY MEMBER Gender Identity Not on file Sexual Orientation Not on file documented as of this encounter Progress Notes * Comfort العراقي RN - 04/07/2018 3:47 PM CST BMP, BNP and troponin EOLOGY FACULTY MEMBER * Comfort العراقي RN - 04/07/2018 3:47 PM CST Lab results for amyloid screening EOLOGY FACULTY MEMBER documented in this encounter Plan of Treatment Not on file documented as of this encounter Procedures Procedure Name Priority Date/Time Associated Diagnosis Comments SCAN - LABS 04/07/2018 documented in this encounter Results * SCAN - LABS (04/07/2018) us Provider Scanning Edited Result - Final documented in this encounter Visit Diagnoses Not on filedocumented in this encounter Care Teams Collar Tailor Relationship Specialty Start Date End Date Kraig Ching MD [address] [facility] [address] [place] [address] PCP - General 07/10/16 documented as of this encounter
--- OUTSIDE RECORDS SUMMARY | 2024-03-31 11:36 | XMS_ITS | Encounter Summary ---
Author Organization [facility] Healthcare Address [address] [place] [address] Care Team Providers Care Hand Pattern Marker Name Role Phone Kraig Ching MD Primary Care Provider [phone] Encounter Details Date Type Department Care Team (Late st Contact Info) Description 08/15/2018 10:50 AM CDT Lab [facility] Advanced Medicine [facility] Advanced [facility] ([facility]) [address] [place] [phone] Estrellita Gomez [facility] [address] [place] [address] Stage 3 chronic kidney disease (CMS/HCC) Discharge [...] on file 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 Current Interpretive Data was last revised on 2017. Imm gran pct 0.6 % [facility] Comment: Interpretive Data Percent cell count reference ranges are not reported, since discordance with absolute values may lead to misinterpretation of CBC data. Current Interpretive Data was last revised on 2017. Lymphocyte pct 17.9 % [facility] Comment: Interpretive Data Percent cell count reference ranges are not reported, since discordance with absolute values may lead to misinterpretation of CBC data. Current Interpretive Data was last revised on 2017. Monocyte pct 9.8 % [facility] Comment: Interpretive Data Percent cell count reference ranges are not reported, since discordance with absolute values may lead to misinterpretation of CBC data. Current Interpretive Data was last revised on 2017. Eosinophil pct 2.4 % [facility] Comment: Interpretive Data Percent cell count reference ranges are not reported, since discordance with absolute values may lead to misinterpretation of CBC data. Current Interpretive Data was last revised on 2017. Basophil pct 0.4 % [facility] Comment: Interpretive Data Percent cell count reference ranges are not reported, since discordance with absolute values may lead to misinterpretation of CBC data. Current Interpretive Data was last revised on 2017. Blood specimen (specimen) 08/15/2018 10:55 AM CDT 08/15/2018 11:14 AM CDT Narrative [facility] - 08/15/2018 11:45 AM CDT Jameldelicia Hannah Gomez DO LAB BLOOD ORDERABLES Casi l Result [facility] Department [place] [address] * (ABNORMAL) Renal function panel (08/15/2018 10:55 AM CDT) Sodium 139 135 - 145 mmol/L [facility] Potassium, pl 4.6 3.3 - 4.9 mmol/L [facility] Chloride 103 97 - 110 mmol/L [facility] CO2 25 22 - 32 mmol/L [facility] Anion gap 11 2 - 15 mmol/L [facility] BUN 28(H) 8 - 25 mg/dL [facility] Creatinine 1.47(H) 0.80 - 1.30 mg/dL [facility] Glucose 180 70 - 199 mg/dL [facility] Comment: Interpretive Data Fasting glucose >/= [...] 2017. Calcium 9.6 8.5 - 10.3 mg/dL [facility] Phosphorus, pl 3.3 2.3 - 4.5 mg/dL [facility] Albumin 4.3 3.5 - 5.0 g/dL [facility] Blood specimen (specimen) 08/15/2018 10:55 AM CDT 08/15/2018 11:14 AM CDT Narrative [facility] - 08/15/2018 12:06 PM CDT [facility] LAB BLOOD ORDERABLES Casi l Result Performing Organization Address [facility] Co de Phone Number [facility] Department [place] [address] * (ABNORMAL) CBC with auto differential (08/15/2018 10:55 AM CDT) [facility] WBC 10.0(H) 3.8 - 9.9 K/cumm [facility] Hgb 12.3(L) 13.0 - 17.5 g/dL [facility] Hct 37.6(L) 38.9 - 50.3 % [facility] Plt 390 150 - 400 K/cumm [facility] MPV 9.6 9.1 - 12.3 fL [facility] RBC 4.57 4.30 - 5.80 M/cumm [facility] MCV 82.3 81.3 - 96.4 fL [facility] MCH 26.9(L) 27.1 - 33.3 pg [facility] MCHC 32.7 32.3 - 35.7 g/dL [facility] RDW CV 14.2 11.1 - 14.9 % [facility] RDW SD 41.6 35.7 - 48.1 fL [facility] NRBC abs 0.00 0.00 - 0.01 K/cumm [facility] Blood specimen (specimen) 08/15/2018 10:55 AM CDT 08/15/2018 11:14 AM CDT Narrative [facility] - 08/15/2018 11:45 AM CDT [facility] LAB BLOOD ORDERABLES Casi l Result Performing Organization Address [facility]/ZIP Co de Phone Number [facility] Department [place] [address] documented in this encounter Visit Diagnoses Diagnosis Stage 3 chronic kidney disease (HCC) documented in this encounter Care Teams Hand Pattern Marker Relationship Specialty Start Date End Date Kraig Ching MD [address] [facility] [address] [place] [address] PCP - General 07/10/16 documented as of this encounter
--- OUTSIDE RECORDS SUMMARY | 2024-03-31 11:36 | XMS_ITS | Encounter Summary ---
Author Organization [facility] Healthcare Address [address] [place] [address] Care Team Providers Care Steam Roller Operator Name Role Phone Kraig Ching MD Primary Care Provider [phone] Reason for Referral * Diagnostic Imaging (Routine) - Closed Specialty Diagnoses / Procedures Referred By Saleem narvaez Referred To Contact Diagnoses Sciatica of left side Procedures XR Spine Lumbar Complete 4 Or More Kraig Ching MD Phone: tel: fax: [address] [address] Referral ID Status Reason Start Date Expiration Date Visits Re quested Visits Authorized [id number] Closed 07/15/2018 01/24/2020 1 1 Reason for Visit * Diagnostic Imaging (Routine) - Closed Specialty Diagnoses / Procedures Referred By Saleem narvaez Referred To Contact Diagnoses Sciatica of left side Procedures XR Spine Lumbar Complete 4 Or More Kraig Ching MD Phone: tel: fax: [address] [phone] Referral ID Status Reason Start Date Expiration Date Visits Re quested Visits Authorized [id number] Closed 07/15/2018 01/24/2020 1 1 Encounter Details Date Type Department Care Team (Latest Contact Info) Description 07/15/2018 3:49 PM CDT - 07/15/2018 11:59 PM CDT Hospital Encounter [facility] [address] [place] [address] Kraig Ching MD [address] 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
--- OUTSIDE RECORDS SUMMARY | 2024-03-31 11:36 | XMS_ITS | Encounter Summary ---
Author Organization [facility] Healthcare Address [address] [place] [address] Care Team Providers Care Security Vehicle Patrol Officer Name Role Phone Kraig Ching MD Primary Care Provider Encounter Details Date Type Department Care Team (Late st Contact Info) Description 07/19/2018 1:45 PM CDT Lab [facility] Advanced [facility] ([facility]) [address] [place] [id number] Tramaine Roe MD [address] [place] [address] Malignant neoplasm of prostate (CMS/HCC) Discharge Disposition: [...] on file 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 SEX ?REFERENCE INTERVAL 0 minutes-150 years ?Female ?None 0 minutes-49 years ? Male ?None ? 50-59 years ? Male ?0-3.90 ? 60-69 years ? Male ?0-5.40 ? 70-79 years ? Male ?0-6.20 ? 80-150 years ?Male ?0-6.20 Current interpretive data last revised 2017. Blood specimen (specimen) 07/19/2018 1:43 PM CDT 07/19/2018 2:13 PM CDT Narrative [facility] - 07/19/2018 3:03 PM CDT us Tramaine Roe MD LAB BLOOD ORDERABLES Final Resu lt [facility] [place] [address] documented in this encounter Visit Diagnoses Diagnosis Malignant neoplasm of prostate (HCC) Malignant neoplasm of prostate documented in this encounter Care Teams Security Vehicle Patrol Officer Relationship Specialty Start Date End Date Kraig Ching MD [address] [facility] [address] [place] [address] PCP - General 07/10/16 documented as of this encounter
--- OUTSIDE RECORDS SUMMARY | 2024-03-31 11:36 | XMS_ITS | Encounter Summary ---
Author Organization [facility] Address [address] [facility] [address] [place] [address] Care Team Providers Care Jewel Diameter Gauger Name Role Phone Mike Lerner MD Primary Care Provider [phone] Encounter Details Date Type Department Care Team (Late st Contact Info) Description 03/07/2018 11:00 AM PRODUCTION LINE MECHANIC Office Visit [facility] [address] [facility] [address] [place] [address] Mike Lerner MD [address] [facility] [address] [place], [place] [id number] Type 2 diabetes mellitus with stage 3 chronic kidney disease, without long-term current use of insulin (CMS/HCC) (Primary Dx); Hypertensive kidney disease with chronic kidney disease stage III (CMS/HCC); Stage 3 chronic kidney disease (CMS/HCC); PAF (paroxysmal atrial fibrillation) (CMS/HCC); Chronic diastolic heart failure (CMS/HCC); Hyperlipidemia associated with type 2 diabetes mellitus ([facility]/HCC); Encounter for screening; Therapeutic drug monitoring Social [...] file Legal Sex Male 4:46 PM PRODUCTION LINE MECHANIC Gender Identity Not on file Sexual Orientation Not on file documented as of this encounter Last Filed Vital Signs Vital Sign Reading Time Taken Comments Blood Pressure 132/74 03/07/2018 10:35 AM PRODUCTION LINE MECHANIC Pulse 85 03/07/2018 10:35 AM PRODUCTION LINE MECHANIC Temperature 36.7 ??C (98 ??F) 03/07/2018 10:35 AM PRODUCTION LINE MECHANIC Respiratory Rate - - Oxygen Saturation 94% 03/07/2018 10:35 AM PRODUCTION LINE MECHANIC Inhaled Oxygen Concentration - - Weight 95.3 kg (210 lb) 03/07/2018 10:35 AM PRODUCTION LINE MECHANIC Height 180.3 cm (5' 11 ) 03/07/2018 10:35 AM PRODUCTION LINE MECHANIC Body Mass Index 29.29 03/07/2018 10:35 AM PRODUCTION LINE MECHANIC documented in this encounter Ordered Prescriptions Prescription [...] 2.HTN. His lisinopril was increased by his Driver Operator. 3.Diastolic heart failure. He has been evaluated [...] disease, without long-term current use of insulin ([facility]) (E11.22, N18.3) (Primary) Assessment & Plan: Continue current regimen. Advised annual eye exam.Limit nephrotoxins. Monitor creatinine. Avoid NSAIDS. Orders: - Hemoglobin A1c; Future - Microalbumin / creatinine ratio, urine, random; Future Hypertensive kidney disease with chronic kidney disease stage III ([facility]) (I12.9, N18.3) Assessment & Plan: Hypertension is controlled. Continue current regimen. Limit nephrotoxins. Monitor creatinine. AvoidNSAIDS. Stage 3 chronic kidney disease ([facility]) (N18.3) Assessment & Plan: Limit nephrotoxins. Monitor creatinine. Avoid NSAIDS. Orders: - Basic metabolic panel (Outreach); Future PAF (paroxysmal atrial fibrillation) ([facility]) (I48.0) Assessment & Plan: Continue rate control. Continue anticoagualtion. Anticipate starting Eliquis after cleared by G.I. Chronic diastolic heart failure ([facility]) (I50.32) Assessment & Plan: Hypertension is controlled. Continue current regimen. CHF compensated. Continue current regimen. Reviewed low sodium diet. Hyperlipidemia associated with type 2 diabetes mellitus ([facility]) (E11.69, E78.5) Assessment & Plan: Continue pravastatin. He had myalgias on other statins. Orders: - Lipid panel; Future Encounter for screening (Z13.9) Therapeutic drug monitoring (Z51.81) - CBC without differential; Future Other orders - aspirin 81 mg tablet; Take 1 tablet (81 mg total) by mouth daily. UCTION LINE MECHANIC UCTION LINE MECHANIC documented in this encounter Miscellaneous Notes * Addendum Note - Mike Lerner MD - 03/07/2018 11:00 AM CSTAddended by: MIKE LERNER on: 03/07/2018 11:07 AM Modules accepted: Orders UCTION LINE MECHANIC * Assessment & Plan Note - Mike Lerner MD - 03/07/2018 6:56 AM PRODUCTION LINE MECHANIC Associated Problem(s): Hyperlipidemia associated with type 2 diabetes mellitus (HCC) Continue pravastatin. He had myalgias on other statins. UCTION LINE MECHANIC * Assessment & Plan Note - Mike Lerner MD - 03/07/2018 6:55 AM PRODUCTION LINE MECHANIC Associated Problem(s): Type 2 diabetes mellitus without complication, with long-term current use ofinsulin (CMS/HCC) (HCC) (Resolved 10/02/2023) Continue current regimen. Advised annual eye exam.Limit nephrotoxins. Monitor creatinine. Avoid NSAIDS. UCTION LINE MECHANIC * Assessment & Plan Note - Mike Lerner MD - 03/07/2018 6:55 AM PRODUCTION LINE MECHANIC Associated Problem(s): Chronic kidney disease, stage 3b (HCC) Limit nephrotoxins. Monitor creatinine. Avoid NSAIDS. UCTION LINE MECHANIC * Assessment & Plan Note - Mike Lerner MD - 03/07/2018 6:55 AM PRODUCTION LINE MECHANIC Associated Problem(s): Hypertensive kidney disease with chronic kidney disease stage III (HCC) Hypertension is controlled. Continue current regimen. Limit nephrotoxins. Monitor creatinine. AvoidNSAIDS. UCTION LINE MECHANIC * Assessment & Plan Note - Mike Lerner MD - 03/07/2018 6:54 AM PRODUCTION LINE MECHANIC Associated Problem(s): PAF (paroxysmal atrial fibrillation) (CMS/HCC) (HCC) Continue rate control. Continue anticoagualtion. Anticipate starting Eliquis after cleared by Juice. UCTION LINE MECHANIC * Assessment & Plan Note - Mike Lerner MD - 03/07/2018 6:53 AM PRODUCTION LINE MECHANIC Associated Problem(s): Chronic diastolic heart failure (HCC) Hypertension is controlled. Continue current regimen. CHF compensated. Continue current regimen. Reviewed low sodium diet. UCTION LINE MECHANIC documented in this encounter Plan of Treatment Not on file documented as of this encounter Results * (ABNORMAL) CBC without differential (03/07/2018 11:19 AM PRODUCTION LINE MECHANIC) WBC 10.4(H) 3.8 - 9.9 K/cumm [facility] Hgb 12.5(L) 13.0 - 17.5 g/dL [facility] Hct 39.4 38.9 - 50.3 % [facility] Plt 429(H) 150 - 400 K/cumm [facility] MPV 9.8 9.1 - 12.3 fL [facility] RBC 4.85 4.30 - 5.80 M/cumm [facility] MCV 81.2(L) 81.3 - 96.4 fL [facility] MCH 25.8(L) 27.1 - 33.3 pg [facility] MCHC 31.7(L) 32.3 - 35.7 g/dL [facility] RDW CV 14.9 11.1 - 14.9 % [facility] RDW SD 43.6 35.7 - 48.1 fL [facility] NRBC abs 0.00 0.00 - 0.01 K/cumm [facility] Blood specimen (specimen) 03/07/2018 11:19 AM PRODUCTION LINE MECHANIC 03/07/2018 1:29 PM PRODUCTION LINE MECHANIC Narrative [facility] - 03/07/2018 1:45 PM PRODUCTION LINE MECHANIC us Mike Lerner MD LAB BLOOD ORDERABLES Final Re sult [facility] Department [place] [address] * (ABNORMAL) Lipid panel (03/07/2018 11:19 AM PRODUCTION LINE MECHANIC) Cholesterol 257(H) 30 - 199 mg/dL [facility] [...] on 2017. Triglycerides 291(H) <=149 mg/dL [facility] Comment: Interpretive Data Ages < or [...] revised on 2017. HDL 37(L) >=40 mg/dL [facility] Comment: Interpretive Data Ages < [...] on 2017. LDL, calculated 162(H) <=129 mg/dL [facility] Comment: Interpretive Data Ages < [...] revised on 2017. Non-HDL Cholesterol 220 mg/dL [facility] Comment: Interpretive Data Ages < [...] last revised on 2017. Chol/HDL ratio 7 [facility] Blood specimen (specimen) 03/07/2018 11:19 AM PRODUCTION LINE MECHANIC 03/07/2018 1:30 PM PRODUCTION LINE MECHANIC Narrative [facility] - 03/07/2018 2:17 PM PRODUCTION LINE MECHANIC Mike Lerner MD LAB BLOOD ORDERABLES Final Re sult Performing Organization Address [facility] de Phone Number [facility] Department [place] [employer] [place] [address] * (ABNORMAL) Hemoglobin A1c (03/07/2018 11:19 AM PRODUCTION LINE MECHANIC) Hgb A1C 8.5(H) 4.0 - 5.6 % [facility] Estimated Average Glucose 197 mg/dL [facility] Comment: The ADA recommends reporting an estimated Average Glucose (eAG) with all Hemoglobin A1c results using the equation derived from a study of 507 normal and diabetic adults. ??Minority populations were underrepresented and children were not included. ?? (Diabetes Care 31:2368-0043, 2008). ??The eAG is not equivalent to a fasting glucose. Blood specimen (specimen) 03/07/2018 11:19 AM PRODUCTION LINE MECHANIC 03/07/2018 1:29 PM PRODUCTION LINE MECHANIC Narrative [facility] - 03/07/2018 2:10 PM PRODUCTION LINE MECHANIC Mike Lerner MD LAB BLOOD ORDERABLES Final Re sult Performing Organization Address [facility] Co de Phone Number [facility] Department [place] [address] * (ABNORMAL) Microalbumin / creatinine ratio, urine, random (03/07/2018 11:17 AM PRODUCTION LINE MECHANIC) Microalbumin, ur 73.8 mcg/mL [facility] Creatinine, ur 58.30 mg/dL [facility] Microalbumin/c reat ratio 126.6(H) 0.1 - 29.9 mcg/mg Cr [facility] Urine 03/07/2018 11:1 7 AM PRODUCTION LINE MECHANIC 03/07/2018 1:49 PM PRODUCTION LINE MECHANIC Narrative [facility] - 03/07/2018 2:32 PM PRODUCTION LINE MECHANIC Mike Lerner MD LAB URINE ORDERABLES Final Re sult [facility] Department [place] [address] documented in this encounter Visit Diagnoses Diagnosis [...] monitoring documented in this encounter Care Teams Jewel Diameter Gauger Relationship Specialty Start Date End Date Mike Lerner MD [address] [facility] [address] [place] [address] PCP - General 07/10/16 documented as of this encounter
--- OUTSIDE RECORDS SUMMARY | 2024-03-31 11:36 | XMS_ITS | Encounter Summary ---
Author Organization [facility] Address [address] [place] [address] Phone Care Team Providers Care Nurses' Registry Director Name Role Phone Kraig Ching MD Primary Care Provider [phone] Reason for Referral * Diagnostic Imaging (Routine) - Closed Specialty Diagnoses / Procedures Referred By Saleem narvaez Referred To Contact Radiology Diagnoses Malignant neoplasm of prostate (HCC) Procedures MRI Pelvis Prostate W WO Contrast Tramaine Roe MD Phone: tel: fax: [address] [address] Referral ID Status Reason Start Date Expiration Date Visits Re quested Visits Authorized [id number] Closed 07/19/2018 01/28/2020 1 1 Reason for Visit * Reason Comments Elevated PSA * Consultation (Routine) - Closed Specialty Diagnoses / Procedures Referred By Saleem narvaez Referred To Contact Urology Diagnoses Elevated PSA Kraig Ching MD Phone: tel: fax: Tramaine Roe MD Phone: tel: fax: Referral ID Status Reason Start Date Expiration Date V isits Requested Visits Authorized [id number] Closed Specialty Services Required 07/08/2018 01/17/2020 99 99 Encounter Details Date Type Department Care Team (Late st Contact Info) Description 07/19/2018 12:40 PM CDT Office Visit 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 documented in this encounter Plan of Treatment [...] 1:43 PM CDT) PSA-Total 11.54(H) <=6.20 ng/mL [facility] Comment: Interpretive Data ?AGE ? SEX ?REFERENCE INTERVAL 0 minutes-150 years ?Female ?None 0 minutes-49 years ? Male ?None ? 50-59 years ? Male ?0-3.90 ? 60-69 years ? Male ?0-5.40 ? 70-79 years ? Male ?0-6.20 ? 80-150 years ?Male ?0-6.20 Current interpretive data last revised 2017. Blood specimen (specimen) 07/19/2018 1:43 PM CDT 07/19/2018 2:13 PM CDT Narrative [facility] - 07/19/2018 3:03 PM CDT us Tramaine Roe MD LAB BLOOD ORDERABLES Final Resu lt [facility] Department [place] [address] documented in this encounter Visit Diagnoses Diagnosis [...] 07/19/2018 documented in this encounter Care Teams Nurses' Registry Director Relationship Specialty Start Date End Date Kraig Ching MD [address] [place] [address] PCP - General 07/10/16 documented as of this encounter
--- OUTSIDE RECORDS SUMMARY | 2024-03-31 11:36 | XMS_ITS | Encounter Summary ---
Author Organization [facility] Address [address] [place] [address] Phone Care Team Providers Care Change Booth Attendant Name Role Phone Kraig Ching MD Primary Care Provider [phone] Encounter Details Date Type Department Care Team (Late st Contact Info) Description 03/08/2018 Orders Only [facility] Cardiology [address] [facility] Advanced Medicine 8th [place] [address] [place] [address] Junior Gonzalez MD [address] [facility] [address] [place] [address] Social History Tobacco Use Types Packs/Day Years Used Date Smoking Tobacco: Former Smokeless Tobacco: Former Comments:Smoking History Pac ks/day: 10 Cigarettes Alcohol Use Standard Drinks/Week Comments No 0 (1 standard drink = 0.6 oz pur e alcohol) quit 09/2017 Sex and Gender Information Value Date Recorded Sex Assigned at Not on file 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
--- OUTSIDE RECORDS SUMMARY | 2024-03-31 11:36 | XMS_ITS | Encounter Summary ---
Author Organization [facility] Address [address] [place] [address] Phone Care Team Providers Care Ballpoint Pen Cartridge Tester Name Role Phone Kraig Ching MD Primary Care Provider [phone] Encounter Details Date Type Department Care Team (Late st Contact Info) Description 03/23/2018 Orders Only [facility] Cardiology [address] [facility] Advanced Medicine 8th [place] [address] [place] [address] Junior Gonzalez MD [address] [facility] [address] [place], [place] [id number] Amyloidosis, unspecified type (CMS/HCC) (Primary Dx) Social History Tobacco Use Types Packs/Day Years Used Date Smoking Tobacco: Former Smokeless Tobacco: Former Comments:Smoking History Pac ks/day: 10 Cigarettes Alcohol Use Standard Drinks/Week Comments No 0 (1 standard drink = 0.6 oz pur e alcohol) quit 09/2017 Sex and Gender Information Value Date Recorded Sex Assigned at Not on file 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
--- OUTSIDE RECORDS SUMMARY | 2024-03-31 11:37 | XMS_ITS | Encounter Summary ---
Author Organization [facility] Address [address] [place] [address] Phone Care Team Providers Care Landscape And Yardwork Laborer Name Role Phone Kraig Ching MD Primary Care Provider [phone] Encounter Details Date Type Department Care Team (Late st Contact Info) Description 02/18/2018 Orders Only 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
--- OUTSIDE RECORDS SUMMARY | 2024-03-31 11:37 | XMS_ITS | Encounter Summary ---
Author Organization [facility] Address [address] [place] [address] Phone Care Team Providers Care Subsea Engineer Name Role Phone Kraig Ching MD Primary Care Provider [phone] Reason for Referral * Diagnostic Imaging (Routine) - Closed Specialty Diagnoses / Procedures Referred By Contac t Referred To Contact Diagnoses CRD (chronic renal disease), stage III (HCC) Procedures US Retroperitoneal Complete Lin Guerrero MD Phone: tel: fax: [facility] (All Locations) Referral ID Status Reason Start Date Expiration Date Visits Re quested Visits Authorized [id number] Closed 11/17/2017 05/29/2019 1 1 Encounter Details Date Type Department Care Team (Late st Contact Info) Description 11/17/2017 Orders Only [facility] Nephrology [address] [place] [address] Lin Guerrero MD [address] [place] [address] CRD (chronic renal disease), stage [...] file Legal Sex Male 4:46 PM 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
--- OUTSIDE RECORDS SUMMARY | 2024-03-31 11:37 | XMS_ITS | Encounter Summary ---
Author Organization [facility] Address [address] [place] [address] Care Team Providers Care Pigment Furnace Tender Name Role Phone Kraig Ching MD Primary Care Provider [phone] Encounter Details Date Type Department Care Team (Late st Contact Info) Description 11/25/2017 2:30 PM CDT Lab [address] [address] Social History Tobacco Use Types Packs/Day Years Used Date Smoking Tobacco: Heavy Smoker Smokeless Tobacco: Never Comments:Smoking History Pac ks/day: 10 Cigarettes Alcohol Use Standard Drinks/Week Comments Yes 0 (1 standard drink = 0.6 oz pur e alcohol) Sex and Gender Information Value Date Recorded Sex Assigned at Not on file Legal Sex Male 4:46 PM CERTIFIED 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
--- OUTSIDE RECORDS SUMMARY | 2024-03-31 11:37 | XMS_ITS | Encounter Summary ---
Author Organization [facility] Address [address] [place] [address] Phone Care Team Providers Care Control Systems Specialist Name Role Phone Kraig Ching MD Primary Care Provider [phone] Encounter Details Date Type Department Care Team (Late st Contact Info) Description 01/24/2018 2:10 PM CDT Lab [facility] Endocrinology Metabolism and Lipid [address] 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 Comment: NONFASTING GLUCOSE RANGE = [...] MD LAB BLOOD ORDERABLES Final Re sult [facility] documented in this encounter Visit Diagnoses Diagnosis Diastolic dysfunction Unspecified heart disease Essential hypertension Unspecified essential hypertension documented in this encounter Care Teams Control Systems Specialist Relationship Specialty Start Date End Date Kraig Ching MD [address] [address] PCP - General 07/10/16 documented as of this encounter
--- OUTSIDE RECORDS SUMMARY | 2024-03-31 11:37 | XMS_ITS | Encounter Summary ---
Author Organization [facility] Healthcare Address [address] [place] [address] Care Team Providers Care Animal Pathologist Name Role Phone Kraig Ching MD Primary Care Provider Encounter Details Date Type Department Care Team (Late st Contact Info) Description 11/22/2017 4:55 PM CDT Lab [facility] Advanced Medicine [facility] Advanced Medicine ([facility]) [address] [place] [phone] Lary Villalobos MD [address] [facility] [address] [id number][address] 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 Gender Identity Not on file Sexual [...] CDT) PTH 32 15 - 65 pg/mL [facility] Blood specimen (specimen) 11/22/2017 4:26 PM CDT 11/22/2017 4:33 PM CDT Narrative [facility] - 11/22/2017 5:14 PM CDT Lary Villalobos MD LAB BLOOD ORDERABLES Fin al Result Performing Organization Address City/[facility]/ZIP Co de Phone Number [facility] [place] [address] * Microalbumin / creatinine ratio, urine, random (11/22/2017 4:26 PM CDT) Microalbumin, ur <12.0 mcg/mL [facility] Creatinine, ur 49.10 mg/dL [facility] Microalbumin/cr eat ratio <24.4 0.1 - 29.9 mcg/mg Cr [facility] Comment:Unable to calculate exact result. Urine 11/22/2017 4:26 PM CDT 11/22/2017 4:37 PM CDT Narrative [facility] - 11/22/2017 5:57 PM CDT Lary Villalobos MD LAB URINE ORDERABLES Fin al Result Performing Organization Address City/[facility] Co de Phone Number [facility] [place] [address] documented in this encounter Visit Diagnoses Diagnosis Stage 3 chronic kidney disease (HCC) documented in this encounter Care Teams Animal Pathologist Relationship Specialty Start Date End Date Kraig Ching MD [address] [facility] [address] [place] [address] PCP - General 07/10/16 documented as of this encounter
--- OUTSIDE RECORDS SUMMARY | 2024-03-31 11:37 | XMS_ITS | Encounter Summary ---
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 Prostate Cancer in 1999, [id number], status post radical prostatectomy with subsequent external [...] 10 12.9 07/12/2013 1.19 03/14/2013 1.17 Urine lmgnqzifybuk-vc-lpigojtaxs ratio 08/30/2017 <36.5 mcg/mg 01/15/2017 55.7 mcg/mg [...] [facility] Creatinine, ur 49.10 mg/dL [facility] Microalbumin/cr eat ratio <24.4 0.1 - 29.9 mcg/mg Cr [facility] Comment:Unable to calculate exact result. Urine 11/22/2017 4:26 PM CDT 11/22/2017 4:37 PM CDT Narrative [facility] - 11/22/2017 5:57 PM CDT Lary Villalobos MD LAB URINE ORDERABLES Fin al Result Performing Organization Address [facility] Co de Phone Number [facility] [place] [address] * PTH, intact (11/22/2017 4:26 PM CDT) Pathologist [facility] PTH 32 15 - 65 pg/mL [facility] Blood specimen (specimen) 11/22/2017 4:26 PM CDT 11/22/2017 4:33 PM CDT Narrative [facility] 11/22/2017 5:14 PM CDT Result [facility] Lary Villalobos MD LAB BLOOD ORDERABLES Fin al Result Performing Organization Address [facility] Phone Number [facility] [place] [place] [address] * POCT urinalysis dipstick (11/17/2017 10:50 AM CDT) Glucose, ur, POC Negative Negative mg/dL Bilirubin, ur, POC Negative Negative Ketones, ur, POC Negative Negative Specific [place], POC 1.010 1.005 - 1.030 Blood, ur, POC Negative Negative pH, ur, POC 7.0 5.0 - 8.0 Protein, ur, POC Negative Negative Urobilinogen, urine, POC 0.2 0.2 - 1.0 mg/dL Nitrite, ur, POC Negative Negative Leukocytes, ur, POC Negative Negative Lot Number [id number] Urine 11/17/2017 10:5 0 AM CDT Result [facility] Lin Guerrero MD POINT OF CARE TEST [...] documented as of this encounter Care Teams Air Bag Builder Relationship Specialty Start Date End Date Kraig Ching MD [address] [address] PCP - General 07/10/16 documented as of this encounter
--- OUTSIDE RECORDS SUMMARY | 2024-03-31 11:37 | XMS_ITS | Encounter Summary ---
Author Organization [facility] Address [address] [facility] [facility] [address] [place] [address] Care Team Providers Care Metal Spraying Machine Operator Name Role Phone Kraig Ching MD Primary Care Provider [phone] Encounter Details Date Type Department Care Team (Late st Contact Info) Description 11/01/2017 Nurse Triage [facility] [address] [facility] [address] [place] [phone] Kraig Ching MD [address] [facility] [address] [place], [place] [id number] Social History Tobacco Use Types Packs/Day Years Used Date Smoking Tobacco: Heavy Smoker Smokeless Tobacco: Never Comments:Smoking History Pac ks/day: 10 Cigarettes Alcohol Use Standard Drinks/Week Comments Yes 0 (1 standard drink = 0.6 oz pur e alcohol) Sex and Gender Information Value Date Recorded Sex Assigned at Not on file 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 CB# [phone] [facility] * Telephone Encounter - Bettye Buitrago RN - 11/01/2017 1:36 PM CDT Regarding: Black stool ----- Message from Clau Bridges sent at 11/01/2017 1:35 PM CDT ----- Symptom Based Call Chief Complaint: Black stool Duration: 2-3 days Appointment Details: Red flag Caller's Callback #: [phone] Additional Comments: Patients states that he has had black stool for 2-3 days documented in this encounter Plan of Treatment Not on file documented as of this encounter Visit Diagnoses Not on filedocumented in this encounter Care Teams Metal Spraying Machine Operator Relationship Specialty Start Date End Date Kraig Ching MD [address] [facility] [address] [place] [address] PCP - General 07/10/16 documented as of this encounter
--- OUTSIDE RECORDS SUMMARY | 2024-03-31 11:37 | XMS_ITS | Encounter Summary ---
Author Organization [facility] Address [address] [place] [address] Phone Care Team Providers Care Convict Guard Name Role Phone Kraig Ching MD Primary Care Provider [phone] Encounter Details Date Type Department Care Team (Late st Contact Info) Description 11/16/[address] 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
--- OUTSIDE RECORDS SUMMARY | 2024-03-31 11:37 | XMS_ITS | Encounter Summary ---
Author Organization [facility] Healthcare Address [address] [place] [address] Care Team Providers Care Impregnator And Drier Helper Name Role Phone Kraig Ching MD Primary Care Provider [phone] Encounter Details Date Type Department Care Team (Late st Contact Info) Description 12/16/2017 2:21 PM CDT - 12/16/2017 5:13 PM CDT Hospital Encounter [facility] Digestive [facility] [place] [address] [facility] [place] [address] Liliana James MD [address] [place] [address] Discharge Disposition: Discharge to home or self [...] Order(s): EGD GI ENDOSCOPY [facility] Patient Name: aDvid Bondsker Procedure Date: 12/16/2017 3:55 PM Date of : 1940 Admit Type: Outpatient Age: 77 Gender: Male Attending MD: Anthony Wilson MD Room: [facility] ENDOSCOPY ROOM 3 Note Status: Finalized Procedure: [...] On: 12/16/2017 3:55 PM Recognized by the [employer] for promoting quality [...] Male Attending MD: Anthony Wilson MD Room: [facility] ENDOSCOPY ROOM 3 Note Status: Finalized Procedure: [...] On: 12/16/2017 3:55 PM Recognized by the [employer] for promoting quality [...] DE VICE Final Result [facility] Department [place] [address] documented in this encounter Visit Diagnoses Not [...] 12/16/2017 documented in this encounter Care Teams Impregnator And Drier Helper Relationship Specialty Start Date End Date Kraig Ching MD [address] [address] PCP - General 07/10/16 documented as of this encounter
--- OUTSIDE RECORDS SUMMARY | 2024-03-31 11:37 | XMS_ITS | Encounter Summary ---
Author Organization [facility] Healthcare Address [address] [place] [address] Care Team Providers Care Soa Architect Name Role Phone Kraig Ching MD Primary Care Provider [phone] Reason for Referral * (Routine) - Closed Specialty Diagnoses / Procedures Referred By Contac t Referred To Contact Diagnoses Diastolic dysfunction Procedures Transthoracic Echo Complete W Doppler/CF Josy Hickman MD Phone: tel: fax: [facility] (All Locations) Referral ID Status Reason Start Date Expiration Date Visits Re quested Visits Authorized [id number] Closed 01/24/2018 08/05/2019 1 1 [facility] THERAPY DIRECTOR Reason for Visit * (Routine) - Closed Specialty Diagnoses / Procedures Referred By Contac t Referred To Contact Diagnoses Diastolic dysfunction Procedures Transthoracic Echo Complete W Doppler/CF Josy Hickman MD Phone: tel: fax: [facility] (All Locations) Referral ID Status Reason Start Date Expiration Date Visits Re quested Visits Authorized [id number] Closed 01/24/2018 08/05/2019 1 1 Encounter Details Date Type Department Care Team (Latest Contact Info) Description 02/23/2018 11:55 AM SPEECH THERAPY DIRECTOR - 02/23/2018 11:59 PM SPEECH THERAPY DIRECTOR Hospital Encounter [facility] Cardiac Diagnostic Lab [address] [facility] [address] [place] [address] Josy Hickman MD [address] [address] Diastolic dysfunction Discharge Disposition: Discharge to home [...] on file Legal Sex Male 4:46 PM SPEECH THERAPY DIRECTOR Gender Identity Not on file Sexual [...] DOPPLER/CF W CONTRAST Routine 02/23/2018 2:54 PM SPEECH THERAPY DIRECTOR Diastolic dysfunction documented in this encounter Results * TRANSTHORACIC ECHO (TTE) COMPLETE W DOPPLER/CF W CONTRAST (02/23/2018 2:54 PM SPEECH THERAPY DIRECTOR) Anatomical Region Laterality Modality Ultrasound 02/23/2018 2:00 PM SPEECH THERAPY DIRECTOR Narrative 02/23/2018 3:22 PM SPEECH THERAPY DIRECTOR Patient name: David Wei Date of test: 02/23/2018 Type of test: TTE w/Doppler [facility] #: [id number] Date of : 1940 (M) Dictating Machine Typist: Leisa Duong ANIRUDH Referring Physician: JOSY HICKMAN MD Contrast Agent: 1.1 ml Optison Administered, (1.9 ml wasted). Contrast Administered by: Ethan Ayoub RN Supervised/Interpreted by: Nalini Ledezma MD Diagnosis: Location: [facility] Reason for test: Diastolic Heart Failure [...] 2=Hypo 3=Akinetic 4=Dyskin./Aneurysm 0=Not visualized) Parasternal Long [place]:MAS=1 BAS=1 MP=1 BP=1 Parasternal Short [place]:MAS=1 MS=1 SD=1 MP=1 ML=1 MA=1 Apical 4 Chambers:=1 MS=1 BS=1 BL=1 SD=1 AL=1 Apical 2 Chambers:AI=2 SD=1 BI=1 BA=1 MA=1 AA=1 LV Global Longitudinal [...] MD By signing this report, the attending insulation manager certifies that he or she has personally supervised and interpreted the echocardiogram and has reviewed and or edited and agrees with the written comments contained within the report. Procedure Note Nalini Ledezma MD - 02/23/2018 Patient name: David Wei Date of test: 02/23/2018 Type of test: TTE /[facility] #: [id number] Date of : 1940 (M) Dictating Machine Typist: Leisa Duong ANIRUDH Referring Physician: JOSY HICKMAN MD Contrast Agent: 1.1 ml Optison Administered, (1.9 ml wasted). Contrast Administered by: Ethan Ayoub RN Supervised/Interpreted by: Nalini Ledemza MD Diagnosis: Location: [facility] Reason for test: Diastolic Heart Failure [...] 2=Hypo 3=Akinetic 4=Dyskin./Aneurysm 0=Not visualized) Parasternal Long [place]:MAS=1 BAS=1 MP=1 BP=1 Parasternal Short [place]:MAS=1 MS=1 SD=1 MP=1 ML=1 MA=1 Apical 4 Chambers:=1 MS=1 BS=1 BL=1 SD=1 AL=1 Apical 2 Chambers:AI=2 SD=1 BI=1 BA=1 MA=1 AA=1 LV Global Longitudinal [...] MD By signing this report, the attending insulation manager certifies that he or she has personally [...] dose, Intra-Procedure (CV) Given 02/23/2018 2:47 PM SPEECH THERAPY DIRECTOR 3 mL documented in this encounter Care Teams Soa Architect Relationship Specialty Start Date End Date Kraig Ching MD [address] [facility] [address] [address] PCP - General 07/10/16 documented as of this encounter
--- OUTSIDE RECORDS SUMMARY | 2024-03-31 11:37 | XMS_ITS | Encounter Summary ---
Author Organization [facility] Address [address] [place] [address] Care Team Providers Care Blindstitch Lining Feller Name Role Phone Kraig Ching MD Primary Care Provider [phone] Reason for Visit * Reason Onset Date Comments Med Refill 10/25/2017 Encounter Details Date Type Department Care Team (Late st Contact Info) Description 10/25/2017 Telephone [facility] [address] [facility] [address] [place] [phone] Elsy Michael MA Med Refill Social History Tobacco Use Types Packs/Day Years Used Date Smoking Tobacco: Heavy Smoker Smokeless Tobacco: Never Comments:Smoking History Pac ks/day: 10 Cigarettes Alcohol Use Standard Drinks/Week Comments Yes 0 (1 standard drink = 0.6 oz pur e alcohol) Sex and Gender Information Value Date Recorded Sex Assigned at Not on file 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 [address] [place], [place] [id number] PCP - General 07/10/16 documented as of this encounter
--- OUTSIDE RECORDS SUMMARY | 2024-03-31 11:37 | XMS_ITS | Encounter Summary ---
Author Organization [facility] Healthcare Address [address] [place] [address] Care Team Providers Care Gluing Machine Adjuster Name Role Phone Kraig Ching MD Primary Care Provider [phone] Encounter Details Date Type Department Care Team (Late st Contact Info) Description 12/16/2017 4:02 PM CDT Anesthesia Event [facility] [address] [facility] [address] [place] [address] Blanquita Garcia MD [address] [place] [address] Bryan Toledo CRNA [address] [place] [address] Anesthesia Record Procedure Summary Procedure Name Responsible [...] file 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 Informed [...] mL/hr documented in this encounter Care Teams Gluing Machine Adjuster Relationship Specialty Start Date End Date Kraig Ching MD [address] [address] PCP - General 07/10/16 documented as of this encounter
--- OUTSIDE RECORDS SUMMARY | 2024-03-31 11:37 | XMS_ITS | Encounter Summary ---
Author Organization [facility] Healthcare Address [address] [place] [address] Care Team Providers Care Audio Technician Name Role Phone Kraig Ching MD Primary Care Provider [phone] Encounter Details Date Type Department Care Team (Late st Contact Info) Description 11/30/2017 Telephone [facility] Disease [place] [address] [facility] [address] [place], [place] [phone] Rosy Ruvalcaba RN Social History Tobacco Use Types Packs/Day Years Used Date Smoking Tobacco: Heavy Smoker Smokeless Tobacco: Never Comments:Smoking History Pac ks/day: 10 Cigarettes Alcohol Use Standard Drinks/Week Comments Yes 0 (1 standard drink = 0.6 oz pur e alcohol) Sex and Gender Information Value Date Recorded Sex Assigned at Not on file 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
--- OUTSIDE RECORDS SUMMARY | 2024-03-31 11:37 | XMS_ITS | Encounter Summary ---
Author Organization [facility] Address [address] [place] [address] Phone Care Team Providers Care Manager Of Sales Name Role Phone Kraig Ching MD Primary Care Provider [phone] Reason for Referral * (Routine) - Closed Specialty Diagnoses / Procedures Referred By Saleem t Referred To Contact Diagnoses Diastolic dysfunction Procedures Transthoracic Echo Complete W Doppler/CF Josy Hickman MD Phone: tel: fax: [facility] (All Locations) Referral ID Status Reason Start Date Expiration Date Visits Re quested Visits Authorized [id number] Closed 01/24/2018 08/05/2019 1 1 Reason for Visit * Consultation (Routine) - Closed Specialty Diagnoses / Procedures Referred By Saleem narvaez Referred To Contact Cardiology Diagnoses Myocardial infarction, unspecified CT type, unspecified artery (HCC) Katherine Del Rio PA Phone: tel: fax: Josy Hickman MD Phone: tel: fax: Referral ID Status Reason Start Date Expiration Date V isits Requested Visits Authorized [id number] Closed Specialty Services Required 11/09/2017 05/21/2019 1 1 Encounter Details Date Type Department Care Team (Late st Contact Info) Description 01/24/2018 1:00 PM CDT Office Visit [facility] Cardiology [address] 8th [place] [address] [place] [address] Josy Hickman MD [address] [place] [address] Diastolic dysfunction (Primary Dx); Myocardial infarction, unspecified CT type, unspecified artery (CMS/HCC); Essential hypertension; PAF [...] on file 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 Wei at the [facility] to establish care. As you know, [...] 0.70 - 1.30 mg/dL Final eGFR Non-AFR. Citizen Of [place] Date Value Ref Range Status 06/15/2014 54 [...] the patient. I discussed management with the social science manager. I agree with assessment and plan as outlined above. Josy Hickman M.D., F.A.C.C. traffic rate clerk documented in this encounter Plan of Treatment Not on file documented as of this encounter Results * TRANSTHORACIC ECHO (TTE) COMPLETE W DOPPLER/CF W CONTRAST (02/23/2018 2:54 PM SWITCHBOARD OPERATOR SUPERVISOR) Anatomical Region Laterality Modality Ultrasound 02/23/2018 2:00 PM SWITCHBOARD OPERATOR SUPERVISOR Narrative 02/23/2018 3:22 PM SWITCHBOARD OPERATOR SUPERVISOR Patient name: David Wei Date of test: 02/23/2018 Type of test: TTE w/Doppler [facility] #: [id number] Date of : 1940 (M) Car Unloader: Leisa Duong ANIRUDH Referring Physician: JOSY HICKMAN MD Contrast Agent: 1.1 ml Optison Administered, (1.9 ml wasted). Contrast Administered by: Ethan Ayoub RN Supervised/Interpreted by: Nalini Ledezma MD Diagnosis: Location: [facility] Reason for test: Diastolic Heart Failure MV [...] 2=Hypo 3=Akinetic 4=Dyskin./Aneurysm 0=Not visualized) Parasternal Long [place]:MAS=1 BAS=1 MP=1 BP=1 Parasternal Short [place]:MAS=1 MS=1 CT=1 MP=1 ML=1 MA=1 Apical 4 Chambers:=1 MS=1 BS=1 BL=1 CT=1 AL=1 Apical 2 Chambers:AI=2 CT=1 BI=1 BA=1 MA=1 AA=1 LV Global Longitudinal [...] MD By signing this report, the attending transfer car operator certifies that he or she has personally supervised and interpreted the echocardiogram and has reviewed and or edited and agrees with the written comments contained within the report. Procedure Note Nalini Ledezma MD - 02/23/2018 Patient name: David Wei Date of test: 02/23/2018 Type of test: TTE w/Doppler [facility] #: [id number] Date of : 1940 (M) Car Unloader: Leisa Duong ANIRUDH Referring Physician: JOSY HICKMAN MD Contrast Agent: 1.1 ml Optison Administered, (1.9 ml wasted). Contrast Administered by: Ethan Ayoub RN Supervised/Interpreted by: Nalini Ledezma MD Diagnosis: Location: [facility] Reason for test: Diastolic Heart Failure MV [...] 2=Hypo 3=Akinetic 4=Dyskin./Aneurysm 0=Not visualized) Parasternal Long [place]:MAS=1 BAS=1 MP=1 BP=1 Parasternal Short [place]:MAS=1 MS=1 CT=1 MP=1 ML=1 MA=1 Apical 4 Chambers:=1 MS=1 BS=1 BL=1 CT=1 AL=1 Apical 2 Chambers:AI=2 CT=1 BI=1 BA=1 MA=1 AA=1 LV Global Longitudinal [...] MD By signing this report, the attending transfer car operator certifies that he or she has personally supervised and interpreted the echocardiogram and has reviewed and or edited and agrees with the written comments contained within the report. us Josy Hickman MD CV ECHO PROCEDURES Final Resu lt * (ABNORMAL) Basic metabolic panel (01/24/2018 2:21 PM CDT) [facility] [address] Glucose 98 64 - 99 mg/dL [facility] Comment: NONFASTING GLUCOSE RANGE = 64-199 mg/dL [...] Primary Unspecified heart disease Myocardial infarction, unspecified CT type, unspecified artery (HCC) Essential hypertension Unspecified [...] 01/24/2018 documented in this encounter Care Teams Manager Of Sales Relationship Specialty Start Date End Date Kraig Ching MD [address] [address] PCP - General 07/10/16 documented as of this encounter
--- OUTSIDE RECORDS SUMMARY | 2024-03-31 11:37 | XMS_ITS | Encounter Summary ---
Author Organization [facility] Address [address] [place] [address] Phone Care Team Providers Care Restaurant Hourly Manager Name Role Phone Kraig Ching MD Primary Care Provider [phone] Encounter Details Date Type Department Care Team [...] on file Legal Sex Male 4:46 PM AWNING HANGER SUPERVISOR Gender Identity Not on file Sexual [...] on filedocumented in this encounter Care Teams Restaurant Hourly Manager Relationship Specialty Start Date End Date Kraig Ching MD [address] [facility] [address] [place] [address] PCP - General 07/10/16 documented as of this encounter
--- OUTSIDE RECORDS SUMMARY | 2024-03-31 11:37 | XMS_ITS | Encounter Summary ---
Author Organization [facility] Address [address] [place] [address] Care Team Providers Care Manufacturer Agent Name Role Phone Kraig Ching MD Primary Care Provider [phone] Reason for Referral * Diagnostic Imaging (Routine) - Closed Specialty Diagnoses / Procedures Referred By Contac t Referred To Contact Diagnoses CRD (chronic renal disease), stage III (HCC) Procedures US Retroperitoneal Complete Lin Guerrero MD Phone: tel: fax: [facility] (All Locations) Referral ID Status Reason Start Date Expiration Date Visits Re quested Visits Authorized [id number] Closed 11/17/2017 05/29/2019 1 1 Reason for Visit * Diagnostic Imaging (Routine) - Closed Specialty Diagnoses / Procedures Referred By Contac t Referred To Contact Diagnoses CRD (chronic renal disease), stage III (HCC) Procedures US Retroperitoneal Complete Lin Guerrero MD Phone: tel: fax: [facility] (All Locations) Referral ID Status Reason Start Date Expiration Date Visits Re quested Visits Authorized [id number] Closed 11/17/2017 05/29/2019 1 1 Encounter Details Date Type Department Care Team (Latest Contact Info) Description 11/22/2017 2:51 PM CDT - 11/22/2017 11:59 PM CDT Hospital Encounter [facility] [address] [place] [address] Lin Guerrero MD [address] [place] [address] [address] [place] [address] CRD (chronic renal disease), stage III Discharge [...] on file 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
--- OUTSIDE RECORDS SUMMARY | 2024-03-31 11:37 | XMS_ITS | Encounter Summary ---
Author Organization [facility] Address [address] [place] [address] Care Team Providers Care Neonatal Icu Coordinator Name Role Phone Kraig Ching MD Primary Care Provider [phone] Encounter Details Date Type Department Care Team (Late st Contact Info) Description 10/25/2017 Orders Only [facility] [address] [facility] [address] [place] [address] Katherine Del Rio PA [address] [facility] [address] [place] [address] Social History Tobacco Use Types Packs/Day Years Used Date Smoking Tobacco: Heavy Smoker Smokeless Tobacco: Never Comments:Smoking History Pac ks/day: 10 Cigarettes Alcohol Use Standard Drinks/Week Comments Yes 0 (1 standard drink = 0.6 oz pur e alcohol) Sex and Gender Information Value Date Recorded Sex Assigned at Not on file Legal Sex Male 4:46 PM PRIMARY OPERATOR Gender Identity Not on file Sexual [...] documented as of this encounter Care Teams Neonatal Icu Coordinator Relationship Specialty Start Date End Date Kraig Ching MD [address] [facility] [address] [place] [address] PCP - General 07/10/16 documented as of this encounter
--- OUTSIDE RECORDS SUMMARY | 2024-03-31 11:37 | XMS_ITS | Encounter Summary ---
Author Organization [facility] Address [address] [place] [address] Care Team Providers Care Miter Operator Name Role Phone Kraig Ching MD Primary Care Provider [phone] Reason for Visit * Reason Onset Date Comments frank - medical question (medication) 12/02/19 18 Encounter Details Date Type Department Care Team (Late st Contact Info) Description 12/01/2017 Telephone [facility] [address] [place] [address] Kraig Ching MD [address] [facility] [address] [place] [address] frank - medical question (medication) Social History Tobacco Use Types Packs/Day Years Used Date Smoking Tobacco: Heavy Smoker Smokeless Tobacco: Never Comments:Smoking History Pac ks/day: 10 Cigarettes Alcohol Use Standard Drinks/Week Comments Yes 0 (1 standard drink = 0.6 oz pur e alcohol) Sex and Gender Information Value Date Recorded Sex Assigned at Not on file Legal Sex Male 4:46 PM NURSE ORTHOPEDIC Gender Identity Not on file Sexual Orientation [...] using please let the patient know at [phone] documented in this encounter Plan of Treatment Not on file documented as of this encounter Visit Diagnoses Not on filedocumented in this encounter Care Teams Miter Operator Relationship Specialty Start Date End Date Kraig Ching MD [address] [address] PCP - General 07/10/16 documented as of this encounter
--- OUTSIDE RECORDS SUMMARY | 2024-03-31 11:37 | XMS_ITS | Encounter Summary ---
Author Organization [facility] Address [address] [place] [address] Care Team Providers Care Production Team Member Name Role Phone Kraig Ching MD Primary Care Provider Encounter Details Date Type Department Care Team (Late st Contact Info) Description 11/25/2017 10:15 AM CDT Office Visit [facility] [address] [facility] [address] [place] [address] Kraig Ching MD [address] [facility] [address] [place], [place] [id number] Type 2 diabetes mellitus with stage 3 [...] on file 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) (Primary) Assessment & Plan: Continue current regimen [...] creatinine. Avoid NSAIDS. PAF (paroxysmal atrial fibrillation) ([facility]) Assessment & Plan: Continue Diltiazem. Await EGD to determine plan for reinitiating aspirin. Orders: - Ambulatory referral to Cardiology; Future Hyperlipidemia associated with type 2 diabetes mellitus ([facility]) Assessment & Plan: He had myalgias on statin. Resume Zetia. Orders: - Lipid panel; Future Duodenal ulcer Assessment & Plan: Reviewed GI note . Continue pantoprazole. Avoid NSAIDS. Refer for EGD. Orders: - [facility]GD -[facility]; Future Encounter for screening Therapeutic drug monitoring - Comprehensive metabolic panel; Future - CBC without differential; Future BMI 28.0-28.9,adult documented in this encounter Miscellaneous Notes * Assessment & Plan Note - Kraig Ching MD - 11/25/2017 7:09 AM CDT Associated Problem(s): Hyperlipidemia associated with type 2 diabetes mellitus ([facility]) He had myalgias on statin. Resume Zetia. 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) Limit nephrotoxins. Monitor creatinine. Avoid NSAIDS. * Assessment & Plan Note - Kraig Ching MD - 11/25/2017 7:07 AM CDT Associated Problem(s): Chronic kidney disease, stage 3b ([facility]) Limit nephrotoxins. Monitor creatinine. Avoid NSAIDS. * Assessment & Plan Note - Kraig Ching MD - 11/25/2017 7:05 AM CDT Associated Problem(s): Type 2 diabetes mellitus without complication, with long-term current use ofinsulin ([facility]) (HCC) (Resolved 10/02/2023) Continue current regimen and [...] CDT) WBC 9.4 3.8 - 9.9 K/cumm [facility] Hgb 11.1(L) 13.0 - 17.5 g/dL [facility] Hct 35.7(L) 38.9 - 50.3 % [facility] Plt 421(H) 150 - 400 K/cumm [facility] MPV 9.5 9.1 - 12.3 fL [facility] RBC 4.11(L) 4.30 - 5.80 M/cumm [facility] MCV 86.9 81.3 - 96.4 fL [facility] MCH 27.0(L) 27.1 - 33.3 pg [facility] MCHC 31.1(L) 32.3 - 35.7 g/dL [facility] RDW CV 15.5(H) 11.1 - 14.9 % [facility] RDW SD 49.3(H) 35.7 - 48.1 fL [facility] NRBC abs 0.00 0.00 - 0.01 K/cumm [facility] Blood specimen (specimen) 11/25/2017 10:33 AM CDT 11/25/2017 2:32 PM CDT Narrative [facility] - 11/25/2017 2:48 PM CDT Kraig Ching MD LAB BLOOD ORDERABLES Final Re sult [facility] [address] [facility] Department [place] [address] * (ABNORMAL) Comprehensive metabolic panel (11/25/2017 10:33 AM CDT) Sodium 142 135 - 145 mmol/L [facility] Potassium, pl 4.3 3.3 - 4.9 mmol/L [facility] Chloride 104 97 - 110 mmol/L [facility] CO2 26 22 - 32 mmol/L [facility] Anion gap 12 2 - 15 mmol/L [facility] BUN 28(H) 8 - 25 mg/dL [facility] Creatinine 1.50(H) 0.80 - 1.30 mg/dL [facility] Glucose 113 70 - 199 mg/dL [facility] Comment: Interpretive Data Fasting glucose >/= [...] 2017. Calcium 9.4 8.5 - 10.3 mg/dL [facility] Bilirubin, total 0.2 0.1 - 1.2 mg/dL [facility] Protein, pl 7.4 6.5 - 8.5 g/dL [facility] Albumin 4.2 3.5 - 5.0 g/dL [facility] Alk phos 85 40 - 130 Units/L [facility] ALT 16 7 - 55 Units/L [facility] AST 17 10 - 50 Units/L [facility] Blood specimen (specimen) 11/25/2017 10:33 AM CDT 11/25/2017 2:32 PM CDT Narrative [facility] - 11/25/2017 3:07 PM CDT Kraig Ching MD LAB BLOOD ORDERABLES Final Re sult [facility] Department [place] [address] * (ABNORMAL) Hemoglobin A1c (11/25/2017 10:33 AM CDT) Hgb A1C 6.4(H) 4.0 - 5.6 % [facility] Estimated Average Glucose 137 mg/dL [facility] Comment: The ADA recommends reporting an estimated Average Glucose (eAG) with all Hemoglobin A1c results using the equation derived from a study of 507 normal and diabetic adults. ??Minority populations were underrepresented and children were not included. ?? (Diabetes Care 31:4513-4110, 2008). ??The eAG is not equivalent to a fasting glucose. Blood specimen (specimen) 11/25/2017 10:33 AM CDT 11/25/2017 2:32 PM CDT Narrative [facility] - 11/25/2017 2:57 PM CDT Kragi Ching MD LAB BLOOD ORDERABLES Final Re sult Performing Organization Address [facility] [[email or web address]] Co de Phone Number [facility] Department [place] [address] * (ABNORMAL) Lipid panel (11/25/2017 10:33 AM CDT) Cholesterol 226(H) 30 - 200 mg/dL [facility] Comment: Interpretive Data Desirable: ?<200 mg/dL Borderline high: ??200-239 mg/dL High: ? > or = 240 mg/dL Literature Reference: National Cholesterol Education Program (NCEP) Expert Panel on Detection, Evaluation, and Treatment of High Blood Cholesterol in Adults (Adult Treatment Panel III). ??Circulation 2004; 110:227. Current interpretive data was last revised on 2015. Triglycerides 143 0 - 150 mg/dL [facility] Comment: Interpretive Data Desirable: ? < 150 mg/dL Borderline High: ? 150 - 199 mg/dL High: ?200 - 499 mg/dL Very High: ? > or = 499 mg/dL Literature Reference: See Cholesterol Current interpretive data was last revised on 2015. HDL 40 >=40 mg/dL [facility] Comment: Interpretive Data Less than 40 mg/dL - low; A major risk factor for heart disease. Greater than or equal to 60 mg/dL - High; ??considered protective of heart disease. Literature Reference: See Cholesterol Current interpretive data was last revised on 2015. LDL, calculated 157(H) 10 - 129 mg/dL [facility] Comment: Interpretive Data Optimal: ? < 100 mg/dL Near Optimal: ?100 - 129 mg/dL Borderline High: ?? 130 - 159 mg/dL High: ?160 - 189 mg/dL Very high: ? > or = 190 mg/dL Literature Reference: See Cholesterol Current interpretive data was last revised on 2015. Non-HDL Cholesterol 186 mg/dL [facility] Comment: Interpretive Data When triglycerides are >200 mg/dL, non-HDL C is a secondary target of therapy, with a goal 30 mg/dL higher than the identified LDL-C goal. Reference: ??See Cholesterol Reference. Current interpretive data was last revised 2015. Blood specimen (specimen) 11/25/2017 10:33 AM CDT 11/25/2017 2:32 PM CDT [address]arrative [facility] - 11/25/2017 3:07 PM CDT us Kraig Ching MD LAB BLOOD ORDERABLES Final Re sult [facility] [address] [facility] Department [place] [address] documented in this encounter Visit Diagnoses Diagnosis [...] documented as of this encounter Care Teams Production Team Member Relationship Specialty Start Date End Date Kraig Ching MD [address] [place] [address] PCP - General 07/10/16 documented as of this encounter
--- OUTSIDE RECORDS SUMMARY | 2024-03-31 11:37 | XMS_ITS | Encounter Summary ---
Author Organization [facility] Address [address] [place], [place] [address] Care Team Providers Care Mattress Stripper Name Role Phone Kraig Ching MD Primary Care Provider [phone] Encounter Details Date Type Department Care Team (Late st Contact Info) Description 11/10/2017 Orders Only [facility] [address] [place] [address] Maciel Diggs Social History Tobacco Use Types Packs/Day Years Used Date Smoking Tobacco: Heavy Smoker Smokeless Tobacco: Never Comments:Smoking History Pac ks/day: 10 Cigarettes Alcohol Use Standard Drinks/Week Comments Yes 0 (1 standard drink = 0.6 oz pur e alcohol) Sex and Gender Information Value Date Recorded Sex Assigned at Not on file 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
--- OUTSIDE RECORDS SUMMARY | 2024-03-31 11:37 | XMS_ITS | Encounter Summary ---
Author Organization [facility] Address [address] [place] [address] Phone Care Team Providers Care Behavior Therapist Name Role Phone Kraig Ching MD Primary Care Provider [phone] Reason for Visit * Reason Onset Date Comments CALL BACK 01/25/2018 Encounter Details Date Type Department Care Team (Late st Contact Info) Description 01/25/2018 Telephone [facility] Cardiology [address] [facility] [address] [facility] [address] [place] [address] [place] [address] Junior Gonzalez MD [address] [facility] [address] [place] [address] CALL BACK Social History Tobacco Use Types Packs/Day Years Used Date Smoking Tobacco: Former Smokeless Tobacco: Never Comments:Smoking History Pac ks/day: 10 Cigarettes Alcohol Use Standard Drinks/Week Comments No 0 (1 standard drink = 0.6 oz pur e alcohol) quit 09/2017 Sex and Gender Information Value Date Recorded Sex Assigned at Not on file 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
--- OUTSIDE RECORDS SUMMARY | 2024-03-31 11:37 | XMS_ITS | Encounter Summary ---
Author Organization [facility] Address [address] [place] [address] Care Team Providers Care Solid Die Cutter Name Role Phone Kraig Ching MD Primary Care Provider [phone] Encounter Details Date Type Department Care Team (Late st Contact Info) Description 10/28/2017 Telephone [facility] [address] [facility] [address] [place] [address] Elsy Michael MA Social History Tobacco Use Types Packs/Day Years Used Date Smoking Tobacco: Heavy Smoker Smokeless Tobacco: Never Comments:Smoking History Pac ks/day: 10 Cigarettes Alcohol Use Standard Drinks/Week Comments Yes 0 (1 standard drink = 0.6 oz pur e alcohol) Sex and Gender Information Value Date Recorded Sex Assigned at Not on file Legal Sex Male 4:46 PM [facility] Gender Identity Not on file Sexual Orientation Not on file documented as of this encounter Miscellaneous Notes * Telephone Encounter - Elsy Michael MA - 10/28/2017 3:00 PM CDT Meds updated for pt that he is currently taking documented in this encounter Plan of Treatment Not on file documented as of this encounter Visit Diagnoses Not on filedocumented in this encounter Care Teams Solid Die Cutter Relationship Specialty Start Date End Date Kraig Ching MD [address] [facility] [address] [place] [address] PCP - General 07/10/16 documented as of this encounter
--- OUTSIDE RECORDS SUMMARY | 2024-03-31 11:37 | XMS_ITS | Encounter Summary ---
Author Organization [facility] Address [address] [place] [address] Care Team Providers Care Electronic Health Records Specialist Name Role Phone Kraig Ching MD Primary Care Provider [phone] Gautam Cope MD Unavailable Tramaine Roe MD Unavailable [phone] Sukhwinder Uribe MD Unavailable [phone] Shay Guillermo MD Unavailable [phone] Marsha Landis RN Unavailable Unavailab Ilene Kaur RN Unavailable [phone] Encounter Details Date Type Department Care Team (Late st Contact Info) Description 12/16/2017 Orders Only [facility] Health Information Management [address] [place], [place] [id number] Scanning, Provider Social History Tobacco Use Types [...] on file 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 Gender Identity Not on file Sexual [...] Chronic Care Management No change(03/23 1:[address] TECHNICIAN) No Ingrid Oden, RN Note: Problem: [...] filedocumented in this encounter Care Teams Electronic Health Records Specialist Relationship Specialty Start Date End Date Kraig Ching MD [address] [place] [address] PCP - General 07/10/16 Gautam Cope MD [address] [place] [address] Medical Oncologist/Hospital Account Manager Medical Oncology 08/18/18 Tramaine Roe MD [address] [place] [address] Referring Physician Urology 08/18/18 Sukhwinder Uribe MD [address] [place] [address] Consulting Physician Urology 08/18/18 Shay Guillermo MD [address] [place] [address] Referring Physician Urology 08/18/18 Marsha Landis, RN Registered Nurse 11/17/18 Ilene Fragoso, SHEA [address] [place] [address] Behavioral Health Aide 12/23/18 11/01/19 documented as of this encounter
--- OUTSIDE RECORDS SUMMARY | 2024-03-31 11:37 | XMS_ITS | Encounter Summary ---
Author Organization [facility] Address [address] [place] [address] Phone Care Team Providers Care Sap Pi Developer Name Role Phone Kraig Ching MD Primary Care Provider [phone] Encounter Details Date Type Department Care Team (Late st Contact Info) Description 12/02/2017 Telephone [facility] Cardiology [address] [facility] Advanced Medicine 8th [place] [address] [place] [address] Junior Gonzalez MD [address] [facility] [address] [place] [address] Social History Tobacco Use Types Packs/Day Years Used Date Smoking Tobacco: Heavy Smoker Smokeless Tobacco: Never Comments:Smoking History Pac ks/day: 10 Cigarettes Alcohol Use Standard Drinks/Week Comments Yes 0 (1 standard drink = 0.6 oz pur e alcohol) Sex and Gender Information Value Date Recorded Sex Assigned at Not on file 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 Medicare, aetna Diagnosis/Reason for Appointment: I21.9 (ICD-10-CM) - Myocardial infarction, unspecified [place] type, unspecified artery (CMS/HCC) Best Contact Number for Patient: Who: Primary Care Physician: Dr. Kraig Ching Prim Phone: Referring Physician: Katherine Tai Phone: If Referring MD is not PCP, list specialty: Yes No If yes, who, phone, when & where? Have you ever seen a Vice President Of Development in an office setting? [] [x] IF [...] where? [x] [] Prostate cancer, treated at [facility] Have you been hospitalized at [place] within the last 3 years? [] [x] If yes, did you see a Vice President Of Development while hospitalized? [] [x] Have you EVER been hospitalized for ANY cardiac issue? [x] [] 09/2017, [facility] for SOB andAFIB Have you ever had an EKG? [x] [] 09/2017, [facility] Have you ever had a stress test? [x] [] Many years ago Have you ever had an echo? [x] [] 09/2017, [facility] Have you ever worn a heart monitor at home? [] [x] Have you ever had a Cardiac Cath? [] [x] Have you ever had a Cardiac Surgery (including ablations, cardioversions, CABG, etc.)? [] [x] Do you have a Pacemaker/Defibrillator or implanted loop recorder (Linq)? (If yes, pt needs device check if scheduled with EP) [] [x] If yes, where, when, type and groundman? FEMALE PTS: Were any of the tests/procedures [...] on filedocumented in this encounter Care Teams Sap Pi Developer Relationship Specialty Start Date End Date Kraig Ching MD [address] [facility] [address] [place] [address] PCP - General 07/10/16 documented as of this encounter
--- OUTSIDE RECORDS SUMMARY | 2024-03-31 11:37 | XMS_ITS | Encounter Summary ---
Author Organization [facility] Address [address] [place] [address] Care Team Providers Care General Partner Name Role Phone Kraig Ching MD Primary Care Provider [phone] Reason for Referral * Consultation (Routine) - Closed Specialty Diagnoses / Procedures Referred By Contac t Referred To Contact Cardiology Diagnoses Myocardial infarction, unspecified [place] type, unspecified artery (HCC) Katherine Del Rio PA Phone: tel: fax: Junior Gonzalez MD Phone: tel: fax: Referral ID Status Reason Start Date Expiration Date V isits Requested Visits Authorized [id number] Closed Specialty Services Required 11/09/2017 05/21/2019 1 1 Encounter Details Date Type Department Care Team (Late st Contact Info) Description 11/09/2017 Orders Only [facility] [address] [facility] [address] [place] [phone] Katherine Del Rio PA [address] [facility] [address] [place] [address] Myocardial infarction, unspecified [place] type, unspecified artery (CMS/HCC) (Primary Dx) Social History Tobacco Use Types Packs/Day Years Used Date Smoking Tobacco: Heavy Smoker Smokeless Tobacco: Never Comments:Smoking History Pac ks/day: 10 Cigarettes Alcohol Use Standard Drinks/Week Comments Yes 0 (1 standard drink = 0.6 oz pur e alcohol) Sex and Gender Information Value Date Recorded Sex Assigned at Not on file 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 Gender Identity Not on file Sexual Orientation Not on file documented as of this encounter Plan of Treatment Scheduled Referrals Name Type Priority Associated Diagnoses Order Schedule Ambulatory referral to Cardiology Outpatient Referral Routine Myocardial infarction, unspecified [place] type, unspecified artery (CMS/HCC) 1 Occurrences starting 11/09/2017 until 05/12/2018 documented as of this encounter Visit Diagnoses Diagnosis Myocardial infarction, unspecified [place] type, unspecified artery (HCC)- Primary documented in this encounter Care Teams General Partner Relationship Specialty Start Date End Date Kraig Ching MD [address] [address] PCP - General 07/10/16 documented as of this encounter
--- OUTSIDE RECORDS SUMMARY | 2024-03-31 11:37 | XMS_ITS | Encounter Summary ---
Author Organization [facility] Address [address] [place] [address] Care Team Providers Care Transportation Aide Name Role Phone Kraig Ching MD Primary Care Provider Encounter Details Date Type Department Care Team (Late st Contact Info) Description 11/26/2017 Orders Only [facility] [address] 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
--- OUTSIDE RECORDS SUMMARY | 2024-03-31 11:37 | XMS_ITS | Encounter Summary ---
Author Organization [facility] Address [address] [place] [address] Care Team Providers Care Technical Services Analyst Name Role Phone Kraig Ching MD Primary Care Provider [phone] Encounter Details Date Type Department Care Team (Late st Contact Info) Description 12/02/2017 Orders Only [facility] [address] [facility] [address] [place] [phone] Kraig Ching MD [address] [facility] [address] [place], [place] [id number] Social History Tobacco Use Types Packs/Day Years Used Date Smoking Tobacco: Heavy Smoker Smokeless Tobacco: Never Comments:Smoking History Pac ks/day: 10 Cigarettes Alcohol Use Standard Drinks/Week Comments Yes 0 (1 standard drink = 0.6 oz pur e alcohol) Sex and Gender Information Value Date Recorded Sex Assigned at Not on file 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
--- OUTSIDE RECORDS SUMMARY | 2024-03-31 11:37 | XMS_ITS | Encounter Summary ---
Author Organization [facility] Healthcare Address [address] [place] [address] Care Team Providers Care Dough Catcher Name Role Phone Mike Lerner MD Primary Care Provider [phone] Encounter Details Date Type Department Care Team (Late st Contact Info) Description 11/30/2017 Telephone [facility] [place] [address] [id number] Rosy Ruvalcaba RN Social History Tobacco Use Types Packs/Day Years Used Date Smoking Tobacco: Heavy Smoker Smokeless Tobacco: Never Comments:Smoking History Pac ks/day: 10 Cigarettes Alcohol Use Standard Drinks/Week Comments Yes 0 (1 standard drink = 0.6 oz pur e alcohol) Sex and Gender Information Value Date Recorded Sex Assigned at Not on file 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
--- OUTSIDE RECORDS SUMMARY | 2024-03-31 11:37 | XMS_ITS | Encounter Summary ---
Author Organization [facility] Healthcare Address [address] [place] [address] Care Team Providers Care Tinner Automatic Name Role Phone Kraig Ching MD Primary Care Provider [phone] Encounter Details Date Type Department Care Team (Latest Contact Info) Description 12/16/2017 4:25 PM CDT - 12/16/2017 4:55 PM CDT Surgery [facility] [place] [address] [facility] [address] [place] [address] Anthony Wilson MD [address] [place] [address] Esophagogastroduodenoscopy OPEN ACCESS Surgery Details Date/Time Status Location OR Service Patient Class Case Class Case Type Trauma Case? 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 Gender Identity Not on file Sexual [...] Male Attending MD: Anthony Wilson MD Room: [facility] ENDOSCOPY ROOM 3 Note Status: Finalized [...] On: 12/16/2017 3:55 PM Recognized by the [employer] for promoting quality [...] Male Attending MD: Anthony Wilson MD Room: [facility] ENDOSCOPY ROOM 3 Note Status: Finalized [...] On: 12/16/2017 3:55 PM Recognized by the [employer] for promoting quality in endoscopy Anthony Wilson MD ENDOSCOPY PROCEDURES Final Result * POCT glucose (12/16/2017 3:09 PM CDT) Glucose, POC 102 70 - 199 mg/dL [facility] Blood specimen (specimen) 12/16/2017 3:09 PM CDT 12/16/2017 3:09 PM CDT Narrative [facility] - 12/16/2017 3:15 PM CDT Liliana James MD LAB POCT ORDERABLES - DE VICE Final Result [facility] Department [place] [address] documented in this encounter Visit Diagnoses Diagnosis [...] 12/16/2017 documented in this encounter Care Teams Tinner Automatic Relationship Specialty Start Date End Date Kraig Ching MD [address] [facility] [address] [place] [address] PCP - General 07/10/16 documented as of this encounter
--- OUTSIDE RECORDS SUMMARY | 2024-03-31 11:37 | XMS_ITS | Encounter Summary ---
Author Organization [facility] Medical [facility] Address [address] [place] [address] Care Team Providers Care Gum Cook Name Role Phone Kraig Ching MD Primary Care Provider [phone] Encounter Details Date Type Department Care Team (Late st Contact Info) Description 02/04/[address] 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 The approval number is [id number]. documented in this encounter Plan of Treatment Not on file documented as of this encounter Visit Diagnoses Not on filedocumented in this encounter Care Teams Gum Cook Relationship Specialty Start Date End Date Kraig Ching MD [address] [facility] [address] [place] [address] PCP - General 07/10/16 documented as of this encounter
--- OUTSIDE RECORDS SUMMARY | 2024-03-31 11:37 | XMS_ITS | Encounter Summary ---
Author Organization [facility] Address [address] [place] [address] Phone Care Team Providers Care Licensed Massage Therapist Name Role Phone Kraig Ching MD Primary Care Provider [phone] Reason for Visit * Renal Disease (Routine) - Closed Specialty Diagnoses / Procedures Referred By Contac t Referred To Contact Nephrology Diagnoses 3 month Procedures RETURN Kraig Ching MD Phone: tel: fax: [facility] [address] [facility] Advanced Medicine 5th [place] [address] [place] [address] Phone: tel: fax: Referral ID Status Reason Start Date Expiration Date Visits Re quested Visits Authorized [id number] Closed 02/23/2018 09/04/2019 99 99 Encounter Details Date Type Department Care Team (Latest Contact Info) Description 02/23/2018 10:00 AM PEDIATRICIAN/MEDICAL DOCTOR Office Visit [facility] 5th [place] [address] [place] [address] Anemia in stage 3 chronic [...] on file Legal Sex Male 4:46 PM PEDIATRICIAN/MEDICAL DOCTOR Gender Identity Not on file Sexual Orientation Not on file documented as of this encounter Last Filed Vital Signs Vital Sign Reading Time Taken Comments Blood Pressure 155/77 02/23/2018 10:46 AM PEDIATRICIAN/MEDICAL DOCTOR Pulse 74 02/23/2018 10:08 AM PEDIATRICIAN/MEDICAL DOCTOR Temperature 36.8 ??C (98.2 ??F) 02/23/2018 1 0:08 AM PEDIATRICIAN/MEDICAL DOCTOR Respiratory Rate - - Oxygen Saturation - - Inhaled Oxygen Concentration - - Weight 96.5 kg (212 lb 12.8 oz) 018 10:08 AM PEDIATRICIAN/MEDICAL DOCTOR Height 180.3 cm (5' 11 ) 02/23/2018 10: 08 AM PEDIATRICIAN/MEDICAL DOCTOR Body Mass Index 29.68 02/23/2018 10:08 AM PEDIATRICIAN/MEDICAL DOCTOR documented in this encounter Patient Instructions * Patient Instructions* Estrellita Gomez MD - 02/23/2018 10:00 AM PEDIATRICIAN/MEDICAL DOCTOR Please take lisinopril 40 mg daily (we will call this in for you) Please get labs done in 2 weeks Please follow up in 6 months with labs Please follow a low salt diet ATRICIAN/MEDICAL DOCTOR documented in this encounter Ordered Prescriptions Prescription [...] EGD 10/2017 9. Prostate Cancer in 1999, [id number], status post radical prostatectomy with subsequent external [...] sounds normal. No masses. SKIN: No rash CHIEF MARKETING OFFICER: Alert and oriented x3. No focal motor [...] Lin Guerrero MD at 03/05/2018 4:20 PM PEDIATRICIAN/MEDICAL DOCTOR ATRICIAN/MEDICAL DOCTOR Associated attestation - Lin Guerrero MD - 03/05/2018 4:20 PM PEDIATRICIAN/MEDICAL DOCTOR I have seen and examined the patient on 02/23/2018. I agree with the findings and plan of care as documented in the renal fellow's note. Lin Guerrero MD documented in this encounter Miscellaneous Notes * Addendum Note - Adelaida Deshpande CLT - 02/23/2018 10:00 AM CSTAddended by: ADELAIDA DESHPANDE on: 03/07/2018 11:39 AM Modules accepted: Orders ATRICIAN/MEDICAL DOCTOR * Addendum Note - Flower Georges - 02/23/2018 10:00 AM CSTAddended by: FLOWER GEORGES on: 08/12/2018 10:28 AM Modules accepted: Orders documented in this encounter Plan of Treatment Not on file documented as of this encounter Procedures Procedure Name Priority Date/Time Associated Diagnosis Comments POCT URINALYSIS DIPSTICK Routine 02/23/2018 10:22 AM PEDIATRICIAN/MEDICAL DOCTOR Stage 3 chronic kidney disease (CMS/HCC) documented in this encounter Results * (ABNORMAL) CBC with auto differential (08/15/2018 10:55 AM CDT) WBC 10.0(H) 3.8 - 9.9 K/cumm [facility] Hgb 12.3(L) 13.0 - 17.5 g/dL [facility] Hct 37.6(L) 38.9 - 50.3 % [facility] Plt 390 150 - 400 K/cumm [facility] MPV 9.6 9.1 - 12.3 fL [facility] RBC 4.57 4.30 - 5.80 M/cumm [facility] MCV 82.3 81.3 - 96.4 fL [facility] MCH 26.9(L) 27.1 - 33.3 pg [facility] MCHC 32.7 32.3 - 35.7 g/dL [facility] RDW CV 14.2 11.1 - 14.9 % [facility] RDW SD 41.6 35.7 - 48.1 fL [facility] NRBC abs 0.00 0.00 - 0.01 K/cumm [facility] Blood specimen (specimen) 08/15/2018 10:55 AM CDT 08/15/2018 11:14 AM CDT Narrative [facility] - 08/15/2018 11:45 AM CDT us Estrellita Gomez DO LAB BLOOD ORDERABLES Casi gretta Result [facility] Department [place] [address] * (ABNORMAL) Renal function panel (08/15/2018 10:55 AM CDT) Sodium 139 135 - 145 mmol/L [facility] Potassium, pl 4.6 3.3 - 4.9 mmol/L [facility] Chloride 103 97 - 110 mmol/L [facility] CO2 25 22 - 32 mmol/L [facility] Anion gap 11 2 - 15 mmol/L [facility] BUN 28(H) 8 - 25 mg/dL [facility] Creatinine 1.47(H) 0.80 - 1.30 mg/dL [facility] Glucose 180 70 - 199 mg/dL [facility] Comment: Interpretive Data Fasting glucose [...] 9.6 8.5 - 10.3 mg/dL [facility] Phosphorus, pl 3.3 2.3 - 4.5 mg/dL [facility] Albumin 4.3 3.5 - 5.0 g/dL [facility] Blood specimen (specimen) 08/15/2018 10:55 AM CDT 08/15/2018 11:14 AM CDT Narrative [facility] - 08/15/2018 12:06 PM T us Estrellita Gomez DO LAB BLOOD ORDERABLES Casi l Result [facility] Department [place] [address] * (ABNORMAL) POCT urinalysis dipstick (02/23/2018 10:22 AM PEDIATRICIAN/MEDICAL DOCTOR) Pathologist [facility] Glucose, ur, POC 100.(A) Negative mg/dL Bilirubin, ur, POC Negative Negative Ketones, ur, POC Negative Negative Specific [place], POC 1.005 1.005 - 1.030 Blood, ur, POC 1+(A) Negative pH, ur, POC 6.0 5.0 - 8.0 Protein, ur, POC Negative Negative Urobilinogen, urine, POC 0.2 0.2 - 1.0 mg/dL Nitrite, ur, POC Negative Negative Leukocytes, ur, POC Negative Negative Lot Number [id number] Urine 02/23/2018 10:2 2 AM PEDIATRICIAN/MEDICAL DOCTOR Lin Guerrero MD POINT OF CARE TEST [...] 03/07/2018 documented in this encounter Care Teams Licensed Massage Therapist Relationship Specialty Start Date End Date Kraig Ching MD [address] [address] PCP - General 07/10/16 documented as of this encounter
--- OUTSIDE RECORDS SUMMARY | 2024-03-31 11:38 | XMS_ITS | Encounter Summary ---
Author Organization [facility] Medical Group Address [address] [facility] [address] [place] [address] Care Team Providers Care Focusing Machine Operator Name Role Phone Kraig Ching MD Primary Care Provider [phone] Reason for Visit * Reason Onset Date Comments dr ching-medical question 10/22/2017 Encounter Details Date Type Department Care Team (Late st Contact Info) Description 10/22/2017 Telephone [facility] [address] [facility] [address] [place] [address] Kraig Ching MD [address] [facility] [address] [place], [place] [id number] dr ching-medical question Social History Tobacco Use Types Packs/Day Years Used Date Smoking Tobacco: Heavy Smoker Smokeless Tobacco: Never Comments:Smoking History Pac ks/day: 10 Cigarettes Alcohol Use Standard Drinks/Week Comments Yes 0 (1 standard drink = 0.6 oz pur e alcohol) Sex and Gender Information Value Date Recorded Sex Assigned at Not on file 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 Avani's call back number is [phone] documented in this encounter Plan of Treatment Not on file documented as of this encounter Visit Diagnoses Not on filedocumented in this encounter Care Teams Focusing Machine Operator Relationship Specialty Start Date End Date Kraig Ching MD [address] [address] PCP - General 07/10/16 documented as of this encounter
--- OUTSIDE RECORDS SUMMARY | 2024-03-31 11:38 | XMS_ITS | Encounter Summary ---
Author Organization [facility] Facility Care Team Providers Care Stockroom Selector Name Role Phone Kraig Ching MD Primary Care Provider [phone] Encounter Details Date Type Department Care Team (Late st Contact Info) Description 02/25/2015 - 02/25/2015 11:59 PM NET LEAD DEVELOPER Hospital Encounter [facility] CL[facility]CON[facility] Katherine Del Rio PA [address] [phone] Abdominal pain Social History Tobacco Use Types Packs/Day Years Used Date Smoking Tobacco: Heavy Smoker Cigarettes Last attempted t o quit: 04/12/2004 Comments:Smoking History Pac ks/day: 10 Cigarettes Alcohol Use Standard Drinks/Week Comments Yes 0 (1 standard drink = 0.6 oz pur e alcohol) Sex and Gender Information Value Date Recorded Sex Assigned at Not on file 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 Gender Identity Not on file Sexual [...] Comments SERUM LIPASE Routine 02/25/2015 11:13 AM NET LEAD DEVELOPER SERUM GLUCOSE Routine 02/25/2015 11:13 AM NET LEAD DEVELOPER PLASMA COMPREHENSIVE METABOLIC PANEL Routine 02/25/2015 11:13 AM NET LEAD DEVELOPER URINALYSIS Routine 02/25/2015 11:13 AM NET LEAD DEVELOPER BLOOD CELL COUNT (CBC) Routine 5 11:13 AM NET LEAD DEVELOPER DISCHARGE LABORATORY CUMULATIVE REPORT 02/25/2015 documented in this encounter Results * Urinalysis (02/25/2015 11:13 AM NET LEAD DEVELOPER) Color, ur Straw Yellow HISTORICAL RESULTS Clarity, [...] HISTORICAL RESULTS Urine 02/25/2015 11:1 3 AM NET LEAD DEVELOPER Katherine ESQUIVEL LAB BLOOD ORDERABLES Final Result HISTORICAL RESULTS * (ABNORMAL) Plasma comprehensive metabolic panel (02/25/2015 11:13 AM NET LEAD DEVELOPER) Sodium 140 135 - 145 mmol/L HISTORICAL [...] HISTORICAL RESULTS Plasma 02/25/2015 11:1 3 AM NET LEAD DEVELOPER Katherine Flynn Quang PA LAB BLOOD ORDERABLES Final Result Performing Organization Address [facility] de Phone Number HISTORICAL RESULTS * Serum lipase (02/25/2015 11:13 AM NET LEAD DEVELOPER) Lip 31 0 - 99 Units/L HISTORICAL RESULTS Serum 02/25/2015 11:1 3 AM NET LEAD DEVELOPER Katherine Flynn Quang PA LAB BLOOD ORDERABLES Final Result Performing Organization Address [facility] Co de Phone Number HISTORICAL RESULTS * Serum glucose (02/25/2015 11:13 AM NET LEAD DEVELOPER) Glucose 123 70 - 199 mg/dl HISTORICAL RESULTS Serum 02/25/2015 11:1 3 AM NET LEAD DEVELOPER Katherine Flynn Quang PA LAB BLOOD ORDERABLES Final Result Performing Organization Address City/[facility] de Phone Number HISTORICAL RESULTS * (ABNORMAL) Blood cell count (CBC) (02/25/2015 11:13 AM NET LEAD DEVELOPER) WBC 8.4 3.8 - 9.8 K/cumm HISTORICAL [...] RESULTS Blood specimen (specimen) 02/25/2015 11:13 AM NET LEAD DEVELOPER Katherine ESQUIVEL LAB BLOOD ORDERABLES Final Result HISTORICAL RESULTS * DISCHARGE LABORATORY CUMULATIVE REPORT (02/25/2015) Narrative 02/25/2015 Ordered by an unspecified provider. Historical Provider LAB BLOOD ORDERABLES Casi l Result documented in this encounter Visit Diagnoses Diagnosis Abdominal pain Abdominal pain, unspecified site documented in this encounter Care Teams Stockroom Selector Relationship Specialty Start Date End Date Ching, Kraig L., MD [address] [address] PCP - General 01/22/09 07/09/16 documented as of this encounter
--- OUTSIDE RECORDS SUMMARY | 2024-03-31 11:38 | XMS_ITS | Encounter Summary ---
Author Organization [facility] Facility Care Team Providers Care Copyright Expert Name Role Phone Kraig Ching MD Primary Care Provider [phone] Encounter Details Date Type Department Care Team (Late st Contact Info) Description 02/28/2015 - 02/28/2015 11:59 PM VETERINARY MANAGER Hospital Encounter [facility] CL[facility]CON[facility] Katherine Del Rio PA [address] [address] Diverticulosis of large intestine without perforation or [...] on file Legal Sex Male 4:46 PM VETERINARY MANAGER Gender Identity Not on file Sexual [...] PELVIS W CONTRAST Routine 02/28/2015 3:46 PM VETERINARY MANAGER documented in this encounter Results * CT Abdomen Pelvis W Contrast (02/28/2015 3:46 PM VETERINARY MANAGER) Anatomical Region Laterality Modality Body N/A Computed Tomogra phy 02/28/2015 3:46 PM VETERINARY MANAGER Narrative 02/28/2015 4:10 PM VETERINARY MANAGER KEVIN MAKI M.D. FINAL REPORT ACC# ??Date Time ??Exam [id number] Feb 28, 2015 15:46:[id number] Abd & Pelvis with cont EXAMINATION: [...] bed. Post surgical changes of penile prosthesis. [place] is distended and intact. Mild circumferential bladder [...] Diverticulosis without diverticulitis. 3. Mechanical penile prosthesis. [place] is intact. Requested By: Dictated By: ?? KEVIN MAKI M.D. ??on Feb 28 2015 ??4:10P This document has been electronically signed by: KEVIN MAKI M.D. on Feb 28 2015 ??4:10P [id number] Procedure Note Provider, MD Coleen - 08/07/2016 KEVIN MAKI M.D. FINAL REPORT ACC# Date Time Exam [id number] Feb 28, 2015 15:46:[id number] Abd & Pelvis with cont EXAMINATION: [...] bed. Post surgical changes of penile prosthesis. [place] is distended and intact. Mild circumferential bladder [...] Diverticulosis without diverticulitis. 3. Mechanical penile prosthesis. [place] is intact. Requested By: Dictated By: KEVIN MAKI M.D. on Feb 28 2015 4:10P This document has been electronically signed by: KEVIN MAKI M.D. on Feb 28 2015 4:10P [id number] us Historical Provider MD RAYGOZA CT PROCEDURES Final R esult documented in this encounter Visit Diagnoses Diagnosis Diverticulosis of large intestine without perforation or abscess without bleeding Abdominal pain Abdominal pain, unspecified site documented in this encounter Care Teams Copyright Expert Relationship Specialty Start Date End Date Kraig Ching MD [address] [address] PCP - General 01/22/09 07/09/16 documented as of this encounter
--- OUTSIDE RECORDS SUMMARY | 2024-03-31 11:38 | XMS_ITS | Encounter Summary ---
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
--- OUTSIDE RECORDS SUMMARY | 2024-03-31 11:38 | XMS_ITS | Encounter Summary ---
Author Organization [facility] Healthcare Address [address] [place] [address] Care Team Providers Care Supervisor Aluminum Boat Assembly Name Role Phone Kraig Ching MD Primary Care Provider [phone] Encounter Details Date Type Department Care Team (Latest Contact Info) Description 08/30/2017 11:20 AM CDT - 08/30/2017 11:59 PM T Hospital Encounter 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
--- OUTSIDE RECORDS SUMMARY | 2024-03-31 11:38 | XMS_ITS | Encounter Summary ---
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 Gender Identity Not on file Sexual [...] 12:42 PM CDT) Microalbumin, ur 17.6 mcg/mL [facility] Creatinine, ur 46.30 mg/dL [facility] Microalbumin/c reat ratio 38.0(H) 0.1 - 29.9 mcg/mg Cr [facility] Urine 07/22/2016 12:4 2 PM CDT 07/22/2016 2:07 PM CDT Katherine ESQUIVEL LAB BLOOD BANK TEST ORDERA BLES Final Result [facility] Department [place] [address] * (ABNORMAL) Lipid panel (07/22/2016 12:41 PM CDT) Cholesterol 204(H) 30 - 200 mg/dL [facility] Comment: Interpretive Data Desirable: ?<200 mg/dL Borderline high: ??200-239 mg/dL High: ? > or = 240 mg/dL Literature Reference: National Cholesterol Education Program (NCEP) Expert Panel on Detection, Evaluation, and Treatment of High Blood Cholesterol in Adults (Adult Treatment Panel III). ??Circulation 2004; 110:227. Current interpretive data was last revised on 2015. Triglycerides 151(H) 0 - 150 mg/dL [facility] Comment: Interpretive Data Desirable: ? < 150 mg/dL Borderline High: ? 150 - 199 mg/dL High: ?200 - 499 mg/dL Very High: ? > or = 499 mg/dL Literature Reference: See Cholesterol Current interpretive data was last revised on 2015. HDL 35(L) >=40 mg/dL [facility] Comment: Interpretive Data Less than 40 mg/dL - low; A major risk factor for heart disease. Greater than or equal to 60 mg/dL - High; ??considered protective of heart disease. Literature Reference: See Cholesterol Current interpretive data was last revised on 2015. LDL, calculated 139(H) 10 - 129 mg/dL [facility] Comment: Interpretive Data Optimal: ? < 100 mg/dL Near Optimal: ?100 - 129 mg/dL Borderline High: ?? 130 - 159 mg/dL High: ?160 - 189 mg/dL Very high: ? > or = 190 mg/dL Literature Reference: See Cholesterol Current interpretive data was last revised on 2015. Non-HDL Cholesterol 169 mg/dL [facility] Comment: Interpretive Data When triglycerides are >200 mg/dL, non-HDL C is a secondary target of therapy, with a goal 30 mg/dL higher than the identified LDL-C goal. Reference: ??See Cholesterol Reference. Current interpretive data was last revised 2015. Blood specimen (specimen) 07/22/2016 12:41 PM CDT 07/22/2016 2:07 PM CDT Katherine ESQUIVEL LAB BLOOD ORDERABLES Edite d Result - Final [facility] Department [place] [address] * (ABNORMAL) Comprehensive metabolic panel without glucose (outreach) (07/22/2016 12:41 PM CDT) Sodium 141 135 - 145 mmol/L [facility] Potassium, pl 4.0 3.3 - 4.9 mmol/L [facility] Chloride 104 97 - 110 mmol/L [facility] Comment:fixed result mapping CO2 25 22 - 32 mmol/L [facility] Anion gap 12 2 - 15 mmol/L [facility] BUN 19 8 - 25 mg/dL [facility] Creatinine 1.34(H) 0.80 - 1.30 mg/dL [facility] Calcium 9.6 8.5 - 10.3 mg/dL [facility] Protein, pl 7.4 6.5 - 8.5 g/dL [facility] Albumin 4.7 3.5 - 5.0 g/dL [facility] Bilirubin, total 0.3 0.1 - 1.2 mg/dL [facility] Alk phos 53 40 - 130 Units/L [facility] AST 24 10 - 50 Units/L [facility] ALT 22 7 - 55 Units/L [facility] Blood specimen (specimen) 07/22/2016 12:41 PM CDT 07/22/2016 2:07 PM CDT Katherine ESQUIVEL LAB BLOOD ORDERABLES Edite d Result - Final [facility] Department [place] [address] * (ABNORMAL) Differential, auto (07/22/2016 12:41 PM CDT) Neutrophil pct 64.1 % [facility] Imm gran pct 0.3 % [facility] Lymphocyte pct 19.9 % [facility] Monocyte pct 10.9 % [facility] Eosinophil pct 4.3 % [facility] Basophil pct 0.5 % [facility] Neutrophil abs 5.53 1.70 - 6.50 K/cumm [facility] Imm gran abs 0.03 0.00 - 0.10 K/cumm [facility] Lymphocyte abs 1.72 0.80 - 3.30 K/cumm [facility] Monocyte abs 0.94(H) 0.20 - 0.80 K/cumm [facility] Eosinophil abs 0.37 0.00 - 0.50 K/cumm [facility] Basophil abs 0.04 0.00 - 0.10 K/cumm [facility] Blood specimen (specimen) 07/22/2016 12:41 PM CDT 07/22/2016 2:06 PM CDT Katherine ESQUIVEL LAB BLOOD ORDERABLES Final Result [facility] Department [place] [address] * (ABNORMAL) CBC with auto differential (07/22/2016 12:41 PM CDT) WBC 8.63 3.80 - 9.90 K/cumm [facility] RBC 4.73 4.30 - 5.80 M/cumm [facility] Hgb 13.1 13.0 - 17.5 g/dL [facility] Hct 41.1 38.9 - 50.3 % [facility] MCV 86.9 81.3 - 96.4 fL [facility] MCH 27.7 27.1 - 33.3 pg [facility] MCHC 31.9(L) 32.3 - 35.7 g/dL [facility] RDW CV 14.0 11.1 - 14.9 % [facility] RDW SD 44.9 35.7 - 48.1 fL [facility] Plt 425(H) 150 - 400 K/cumm [facility] MPV 9.4 9.1 - 12.3 fL [facility] NRBC 0.0 0.0 - 0.2 % [facility] NRBC abs 0.00 0.00 - 0.01 K/cumm [facility] Blood specimen (specimen) 07/22/2016 12:41 PM CDT 07/22/2016 2:06 PM CDT Katherine ESQUIVEL LAB BLOOD ORDERABLES Final Result [facility] Department [place] [address] * CS GLUCOSE (07/22/2016 12:41 PM CDT) Glucose 99 70 - 199 mg/dL [facility] Anatomical Region Laterality Modality Other Blood specimen (specimen) 07/22/2016 12:41 PM CDT 07/22/2016 2:07 PM CDT us Katherine ESQUIVEL LAB BLOOD ORDERABLES Final Result documented in this encounter Visit Diagnoses Not on filedocumented in this encounter Care Teams [place] Actor Relationship Specialty Start Date End Date Kraig Ching MD [address] [address] PCP - General 07/10/16 documented as of this encounter
--- OUTSIDE RECORDS SUMMARY | 2024-03-31 11:38 | XMS_ITS | Encounter Summary ---
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 Phone Number HISTORICAL RESULTS * (ABNORMAL) Plasma [...] ORDERABLES Final Re sult Performing Organization Address [facility] Phone Number HISTORICAL RESULTS * Serum glucose (09/23/2015 3:09 PM CDT) Glucose 86 70 - 199 mg/dl HISTORICAL RESULTS Serum 09/23/2015 3:09 PM CDT Kriag Ching MD LAB BLOOD ORDERABLES Final Re sult Performing Organization Address [facility] de Phone Number HISTORICAL RESULTS * (ABNORMAL) [...] and children were not included. ??(Diabetes Care 31:5711-0319, 2008). ??The eAG is not equivalent to [...] hyperlipidemia documented in this encounter Care Teams Blood Bank Specialist Relationship Specialty Start Date End Date Kraig Ching MD [address] [facility] [address], [place] [address] PCP - General 01/22/09 07/09/16 documented as of this encounter
--- OUTSIDE RECORDS SUMMARY | 2024-03-31 11:38 | XMS_ITS | Encounter Summary ---
Author Organization [facility] Facility Care Team Providers Care Prom Burn Off Operator Name Role Phone Kraig Ching MD Primary Care Provider [phone] Encounter Details Date Type Department Care Team (Late st Contact Info) Description 09/24/2014 - 09/24/2014 11:59 PM CDT Hospital Encounter [facility] CLINCONV Kraig Ching MD [address] [address] Encounter for therapeutic drug monitoring Social History Tobacco Use Types Packs/Day Years Used Date Smoking Tobacco: Never Assessed Sex and Gender Information Value Date Recorded Sex Assigned at Not on file 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
--- OUTSIDE RECORDS SUMMARY | 2024-03-31 11:38 | XMS_ITS | Encounter Summary ---
Author Organization [facility] Address [address] [facility] [address] [place] [address] Care Team Providers Care Electronic System Engineer Name Role Phone Kraig Ching MD Primary Care Provider [phone] Encounter Details Date Type Department Care Team (Late st Contact Info) Description 06/04/2017 Orders Only [facility] [address] [facility] [address] [place] [address] Katherine Del Rio PA [address] [facility] [address] [place] [address] Diverticulitis of large intestine without perforation or [...] on file Legal 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
--- OUTSIDE RECORDS SUMMARY | 2024-03-31 11:38 | XMS_ITS | Encounter Summary ---
Author Organization [facility] Facility Care Team Providers Care Home Furnishings Sales Representative Name Role Phone Kraig Ching MD Primary Care Provider [phone] Encounter Details Date Type Department Care Team (Late st Contact Info) Description 03/09/2016 2:40 PM RESAWYER - 03/09/2016 11:59 PM [facility] Hospital Encounter [facility] CLINCON Kraig Ching MD [address] [phone] Type 2 diabetes mellitus with other specified [...] on file Legal Sex Male 4:46 PM RESAWYER Gender Identity Not on file Sexual Orientation [...] Comments SERUM GLUCOSE Routine 03/09/2016 2:47 PM RESAWYER PLASMA BASIC METABOLIC PANEL Routine 03/09/2016 2:47 PM RESAWYER BLOOD HEMOGLOBIN A1C Routine 03/09/2016 2:47 PM RESAWYER BLOOD CELL COUNT (CBC) Routine 03/09/2016 2:47 PM RESAWYER BLOOD CELL MORPHOLOGIC EXAM Routine 03/09/2016 2:47 PM RESAWYER DISCHARGE LABORATORY CUMULATIVE REPORT 03/09/2016 documented in this encounter Results * (ABNORMAL) Plasma basic metabolic panel (03/09/2016 2:47 PM RESAWYER) Sodium 140 135 - 145 mmol/L CDR [...] CDR HISTORICAL RESULTS Plasma 03/09/2016 2:47 PM RESAWYER Kraig Ching MD LAB BLOOD ORDERABLES Final Re sult Performing Organization Address [facility] de Phone Number CDR HISTORICAL RESULTS * Serum glucose (03/09/2016 2:47 PM RESAWYER) Glucose 86 70 - 199 mg/dl CDR HISTORICAL RESULTS Serum 03/09/2016 2:47 PM RESAWYER Kraig Ching MD LAB BLOOD ORDERABLES Final Re sult Performing Organization Address [facility] de Phone Number CDR HISTORICAL RESULTS * (ABNORMAL) Blood cell count (CBC) (03/09/2016 2:47 PM RESAWYER) WBC 10.2(H) 3.8 - 9.9 K/cumm CDR [...] RESULTS Blood specimen (specimen) 03/09/2016 2:47 PM RESAWYER Kraig Ching MD LAB BLOOD ORDERABLES Final [facility] CDR HISTORICAL RESULTS * (ABNORMAL) Blood cell morphologic exam (03/09/2016 2:47 PM RESAWYER) Neutrophils 66.6 % CDR HIST ORICAL RESULTS [...] RESULTS Blood specimen (specimen) 03/09/2016 2:47 PM RESAWYER Kraig Ching MD LAB BLOOD ORDERABLES Final [facility] Performing Organization Address City/State/[place] Co de Phone Number CDR HISTORICAL RESULTS * (ABNORMAL) Blood hemoglobin A1C (03/09/2016 2:47 PM RESAWYER) Hgb A1C 7.5(H) 4.0 - 6.0 % CDR HISTORICAL RESULTS Estimated average glucose 169 mg/dl CDR HISTORIC AL RESULTS Comment: The ADA recommends reporting an estimated Average Glucose (eAG) with all Hemoglobin A1c results using the equation derived from a study of 507 normal and diabetic adults. ??Minority populations were underrepresented and children were not included. ??(Diabetes Care 31:7340-0770, 2008). ??The eAG is not equivalent to a fasting glucose. Blood specimen (specimen) 03/09/2016 2:47 PM RESAWYER us Kraig Ching MD LAB BLOOD ORDERABLES Final Re sult CDR HISTORICAL RESULTS * DISCHARGE LABORATORY CUMULATIVE REPORT (03/09/2016) Narrative 03/09/2016 Ordered by an unspecified provider. Historical Provider LAB BLOOD ORDERABLES Casi l Result documented in this encounter Visit Diagnoses Diagnosis Type 2 diabetes mellitus with other specified complication (HCC) Essential (primary) hypertension Unspecified essential hypertension documented in this encounter Care Teams Home Furnishings Sales Representative Relationship Specialty Start Date End Date Kraig Ching MD [address] [address] PCP - General 01/22/09 07/09/16 documented as of this encounter
--- OUTSIDE RECORDS SUMMARY | 2024-03-31 11:38 | XMS_ITS | Encounter Summary ---
Author Organization [facility] Address [address] [place] [address] Care Team Providers Care Daily Release And Dupe Printer Name Role Phone Kraig Ching MD Primary Care Provider [phone] Reason for Visit * Reason Comments Follow-up Encounter Details Date Type Department Care Team (Late st Contact Info) Description 03/02/2017 10:00 AM HYDRAULIC AUTO JACK MECHANIC Office Visit [facility] [address] [place] [phone] Kraig Ching MD [address] [facility] [address] [place], [place] [id number] Major depressive disorder with single episode, in [...] file Legal Sex Male 4:46 PM HYDRAULIC AUTO JACK MECHANIC Gender Identity Not on file Sexual Orientation Not on file documented as of this encounter Last Filed Vital Signs Vital Sign Reading Time Taken Comments Blood Pressure 128/80 03/02/2017 10:13 AM HYDRAULIC AUTO JACK MECHANIC Pulse 67 03/02/2017 10:13 AM HYDRAULIC AUTO JACK MECHANIC Temperature 36.7 ??C (98.1 ??F) 03/02/2017 10:[address] Respiratory Rate 14 03/02/2017 10:13 AM HYDRAULIC AUTO JACK MECHANIC Oxygen Saturation 96% 03/02/2017 10:13 AM HYDRAULIC AUTO JACK MECHANIC Inhaled Oxygen Concentration - - Weight 92.5 kg (204 lb) 03/02/2017 10:13 AM HYDRAULIC AUTO JACK MECHANIC Height 177.8 cm (5' 10 ) 03/02/2017 10:13 AM HYDRAULIC AUTO JACK MECHANIC Body Mass Index 29.27 03/02/2017 10:13 AM HYDRAULIC AUTO JACK MECHANIC documented in this encounter Progress Notes * [...] regimen. Reviewed low sodium diet. BMI 29.0-29.9,adult AULIC AUTO JACK MECHANIC documented in this encounter Miscellaneous Notes * Assessment & Plan Note - Kraig Ching MD - 03/02/2017 6:53 AM HYDRAULIC AUTO JACK MECHANIC Associated Problem(s): Major depressive disorder with single episode, in partial remission (HCC) (Resolved 08/30/2017) Mood is improved. Monitor off medication. AULIC AUTO JACK MECHANIC AULIC AUTO JACK MECHANIC * Assessment & Plan Note - Kraig Ching MD - 03/02/2017 6:53 AM HYDRAULIC AUTO JACK MECHANIC Associated Problem(s): Hypertension Hypertension is controlled. Continue current regimen. Reviewed low sodium diet. AULIC AUTO JACK MECHANIC documented in this encounter Plan of [...] documented as of this encounter Care Teams Daily Release And Dupe Printer Relationship Specialty Start Date End Date Kraig Ching MD [address] [address] PCP - General 07/10/16 documented as of this encounter
--- OUTSIDE RECORDS SUMMARY | 2024-03-31 11:38 | XMS_ITS | Encounter Summary ---
Author Organization [facility] Address [address] [place] [address] Care Team Providers Care Electrical And Instrumentation Mechanic Name Role Phone Kraig Ching MD Primary Care Provider [phone] Gautam Cope MD Unavailable Tramaine Roe MD Unavailable [phone] Sukhwinder Uribe MD Unavailable [phone] Shay Guillermo MD Unavailable [phone] Marsha Landis RN Unavailable Unavailab Ilene Kaur RN Unavailable [phone] Encounter Details Date Type Department Care Team (Late st Contact Info) Description 10/08/2017 Orders Only [facility] [place] Management [address] [place], [place] [id number] Scanning, Provider Social History Tobacco Use Types [...] on file Legal Sex Male 4:46 PM LAST PULLER Gender Identity Not on file Sexual [...] Management No change(09/06 4:37 PM CDT) Ielne Yadav, SHEA Note: Problem: Knowledge deficit - [...] Chronic Care Management No change(03/23 1:47 PM LAST PULLER) No Ingrid Oden, SHEA Note: Problem: Chronic [...] filedocumented in this encounter Care Teams Electrical And Instrumentation Mechanic Relationship Specialty Start Date End Date Kraig Ching MD [address] [place] [address] PCP - General 07/10/16 Gautam Cope MD [address] [place] [address] Medical Oncologist/Baggage Checker Medical Oncology 08/18/18 Tramaine Roe MD [address] [place] [address] Referring Physician Urology 08/18/18 Sukhwinder Uribe MD [address] [place] [address] Consulting Physician Urology 08/18/18 Shay Guillermo MD [address] [place] [address] Referring Physician Urology 08/18/18 Marsha Landis, RN Registered Nurse 11/17/18 Ilene Fragoso, SHEA [address] [place] [address] Hospital Account Liaison 12/23/18 11/01/19 documented as of this encounter
--- OUTSIDE RECORDS SUMMARY | 2024-03-31 11:38 | XMS_ITS | Encounter Summary ---
Author Organization [facility] Facility Care Team Providers Care Before School Name Role Phone Kraig Ching MD Primary Care Provider [phone] Encounter Details Date Type Department Care Team (Late st Contact Info) Description 07/15/2012 - 07/15/2012 11:59 PM CDT Hospital En[facility] [place] [address] [facility] [address] [place] [address] Gross hematuria Social History Tobacco Use Types Packs/Day Years Used Date Smoking Tobacco: Never Assessed Sex and Gender Information Value Date Recorded Sex Assigned at Not on file 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
--- OUTSIDE RECORDS SUMMARY | 2024-03-31 11:38 | XMS_ITS | Encounter Summary ---
Author Organization [facility] Address [address] [place] [address] Care Team Providers Care Pillar Man Name Role Phone Kraig Ching MD Primary Care Provider [phone] Encounter Details Date Type Department Care Team (Late st Contact Info) Description 10/22/2017 Telephone 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 Gender Identity Not on file Sexual Orientation Not on file documented as of this encounter Miscellaneous Notes * Telephone Encounter - Gracie Iraheta MA - 10/22/2017 3:31 PM CDT Pt has an appointment on 11/17 @ 1030am with the renal doc in the [facility] [address] Mejia Buckpt vm wasfull and I could not leave a VM documented in this encounter Plan of Treatment Not on file documented as of this encounter Visit Diagnoses Not on filedocumented in this encounter Care Teams Pillar Man Relationship Specialty Start Date End Date Kraig Ching MD [address] [address] PCP - General 07/10/16 documented as of this encounter
--- OUTSIDE RECORDS SUMMARY | 2024-03-31 11:38 | XMS_ITS | Encounter Summary ---
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 ACC# ??Date Time ??Exam [id number] Sep 20, 2014 15:00:[id number] Abd & Pelvis with cont EXAMINATION: [...] DALEY M.D. on Sep 20 2014 ??3:53P [id number] Procedure Note Provider, MD Coleen - 08/07/2016 VIVIAN DALEY M.D. HELGA GODINEZ M.D. FINAL REPORT The radiology attending physician has personally reviewed this study, and has reviewed and/or edited this written report and agrees with it. ACC# Date Time Exam [id number] Sep 20, 2014 15:00:[id number] Abd & Pelvis with cont EXAMINATION: [...] DALEY M.D. on Sep 20 2014 3:53P [id number] us Historical Provider MD RAYGOZA CT PROCEDURES [...] ORDERABLES Final Re sult Performing Organization Address [facility]/ZIP Co de Phone Number HISTORICAL RESULTS * [...] ORDERABLES Final Re sult Performing Organization Address [facility] Co de Phone Number HISTORICAL RESULTS * Serum glucose (09/20/2014 2:50 PM CDT) Glucose 104 70 - 199 mg/dl HISTORICAL RESULTS Serum 09/20/2014 2:50 PM CDT Kraig Ching MD LAB BLOOD ORDERABLES Final Re sult Performing Organization Address [facility] Co de Phone Number HISTORICAL [...] point of care (09/20/2014 2:26 PM CDT) [facility] Creatinine, POC, bld 1.7(H) 0.7 - [...] retroperitoneum documented in this encounter Care Teams Under Trimmer Relationship Specialty Start Date End Date Kraig Ching MD [address] [address] PCP - General 01/22/09 07/09/16 documented as of this encounter
--- OUTSIDE RECORDS SUMMARY | 2024-03-31 11:38 | XMS_ITS | Encounter Summary ---
Author Organization [facility] Address [address] [place] [address] Care Team Providers Care Software Clerk Name Role Phone Kraig Ching MD Primary Care Provider [phone] Encounter Details Date Type Department Care Team (Late st Contact Info) Description 10/10/2017 Orders Only [facility] [place] Health Information Management [address] [place] [address] Scanning, Provider Social History Tobacco Use Types Packs/Day Years Used Date Smoking Tobacco: Heavy Smoker Smokeless Tobacco: Never Comments:Smoking History Pac ks/day: 10 Cigarettes Alcohol Use Standard Drinks/Week Comments Yes 0 (1 standard drink = 0.6 oz pur e alcohol) Sex and Gender Information Value Date Recorded Sex Assigned at Not on file Legal Sex Male 4:46 PM OUTSIDE CUTTER HAND Gender Identity Not on file Sexual [...] filedocumented in this encounter Care Teams Software Clerk Relationship Specialty Start Date End Date Kraig Ching MD [address] [facility] [address] [place] [address] PCP - General 07/10/16 documented as of this encounter
--- OUTSIDE RECORDS SUMMARY | 2024-03-31 11:38 | XMS_ITS | Encounter Summary ---
Author Organization [facility] Address [address] [place] [address] Care Team Providers Care Program Support Clerk Name Role Phone Kraig Ching MD Primary Care Provider [phone] Reason for Visit * Reason Comments Hospital Follow Up c/o SOB, COPD, Afib Encounter Details Date Type Department Care Team (Late st Contact Info) Description 10/22/2017 8:00 AM CDT Office Visit [facility] [address] [place] [phone] Katherine Del Rio PA [address] [facility] [address] [place], [place] [phone] PAF (paroxysmal atrial fibrillation) (CMS/HCC) (Primary Dx); [...] file 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 He was admitted to [facility] with a 2 day history of worsening [...] COPD type (CMS/HCC) - Pulmonary Function Test -[facility] Adult PFT Lab- [facility]; Standard; Spirometry, Spirometry w/bronchodilator, DLCO and Lung Volumes; Future Stage 3 chronic kidney disease - Ambulatory referral to Nephrology; Future [facility] Cosigned by Kraig Ching MD at 10/25/2017 9:30 AM CDT documented in this encounter Plan of Treatment Not on file documented as of this encounter Results * (ABNORMAL) Basic metabolic panel (10/22/2017 10:11 AM CDT) Sodium 135 135 - 145 mmol/L [facility] Potassium, pl 4.5 3.3 - 4.9 mmol/L [facility] Chloride 99 97 - 110 mmol/L [facility] CO2 28 22 - 32 mmol/L [facility] Anion gap 8 2 - 15 mmol/L [facility] BUN 24 8 - 25 mg/dL [facility] Creatinine 1.81(H) 0.80 - 1.30 mg/dL [facility] Glucose 124 70 - 199 mg/dL [facility] Comment: Interpretive Data Fasting glucose [...] 2017. Calcium 9.7 8.5 - 10.3 mg/dL [facility] Blood specimen (specimen) 10/22/2017 10:11 AM CDT 10/22/2017 11:53 AM CDT Rich [facility] - 10/22/2017 12:38 PM CDT Katherine ESQUIVEL LAB BLOOD ORDERABLES Final Result [facility] Department [place] [address] documented in this encounter Visit Diagnoses Diagnosis PAF (paroxysmal atrial fibrillation) (CMS/HCC) ([facility])- Primary Atrial fibrillation Chronic obstructive pulmonary disease, unspecified COPD type ([facility]) Stage 3 chronic kidney disease ([facility]) BMI 27.0-27.9,adult documented in this encounter Historical [...] 8 added in this encounter Care Teams Program Support Clerk Relationship Specialty Start Date End Date Kraig Ching MD [address] [facility] [address] [place] [address] PCP - General 07/10/16 documented as of this encounter
--- OUTSIDE RECORDS SUMMARY | 2024-03-31 11:38 | XMS_ITS | Encounter Summary ---
Author Organization [facility] Facility Care Team Providers Care Rug Layer Name Role Phone Kraig Ching MD Primary Care Provider [phone] Encounter Details Date Type Department Care Team (Late st Contact Info) Description 07/27/2012 - 07/27/2012 11:59 PM CDT Hospital En[facility] [place] [address] [facility] [address] [place] [address] Gross hematuria Social History Tobacco Use Types Packs/Day Years Used Date Smoking Tobacco: Never Assessed Sex and Gender Information Value Date Recorded Sex Assigned at Not on file 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 ACC# ??Date Time ??Exam [id number] Jul 27, 2012 07:48:[id number] Abd & Pelvis wwo cont [id number] Jul 27, 2012 07:48:00 [id number] 3-DRendering sep Modality EXAMINATION: 1. CT UROGRAPHY [...] agrees with it. ACC# Date Time Exam [id number] Jul 27, 2012 07:48:[id number] Abd & Pelvis wwo cont [id number] Jul 27, 2012 07:48:00 [id number] 3-DRendering sep Modality EXAMINATION: 1. CT UROGRAPHY [...] By: RAMIRO TREVINO M.D. Dictated By: DAVID SCHAEFFER, on [...] agrees with it. ACC# ??Date Time ??Exam [id number] Jul 27, 2012 07:48:[id number] Abd & Pelvis wwo cont [id number] Jul 27, 2012 07:48:00 [id number] 3-DRendering sep Modality EXAMINATION: 1. CT UROGRAPHY [...] agrees with it. ACC# Date Time Exam [id number] Jul 27, 2012 07:48:[id number] Abd & Pelvis wwo cont [id number] Jul 27, 2012 07:48:00 [id number] 3-DRendering sep Modality EXAMINATION: 1. CT UROGRAPHY [...] hematuria documented in this encounter Care Teams Rug Layer Relationship Specialty Start Date End Date Kraig Ching MD [address] [address] PCP - General 01/22/09 07/09/16 documented as of this encounter
--- OUTSIDE RECORDS SUMMARY | 2024-03-31 11:38 | XMS_ITS | Encounter Summary ---
Author Organization [facility] Facility Care Team Providers Care Outside Barrel Lathe Operator Name Role Phone Kraig Ching MD Primary Care Provider [phone] Encounter Details Date Type Department Care Team (Late st Contact Info) Description 11/26/2014 - 11/26/2014 11:59 PM T Hospital Encounter [facility] CL[facility] Roman MD [address] [phone] Other and unspecified hyperlipidemia; Encounter for therapeutic drug monitoring Social History Tobacco Use Types Packs/Day Years Used Date Smoking Tobacco: Never Assessed Sex and Gender Information Value Date Recorded Sex Assigned at Not on file 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 Co de Phone Number HISTORICAL [...] monitoring documented in this encounter Care Teams Outside Barrel Lathe Operator Relationship Specialty Start Date End Date Kraig Ching MD [address] [address] PCP - General 01/22/09 07/09/16 documented as of this encounter
--- OUTSIDE RECORDS SUMMARY | 2024-03-31 11:38 | XMS_ITS | Encounter Summary ---
Author Organization [facility] Healthcare Address [address] [place] [address] Care Team Providers Care Supervisor Lathing Name Role Phone Kraig Ching MD Primary Care Provider [phone] Encounter Details Date Type Department Care Team (Late st Contact Info) Description 10/22/2017 11:55 AM CDT Lab [address] [address] Social History Tobacco Use Types Packs/Day Years Used Date Smoking Tobacco: Heavy Smoker Smokeless Tobacco: Never Comments:Smoking History Pac ks/day: 10 Cigarettes Alcohol Use Standard Drinks/Week Comments Yes 0 (1 standard drink = 0.6 oz pur e alcohol) Sex and Gender Information Value Date Recorded Sex Assigned at Not on file 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
--- OUTSIDE RECORDS SUMMARY | 2024-03-31 11:38 | XMS_ITS | Encounter Summary ---
Author Organization [facility] Facility Care Team Providers Care Administrative Services Manager Name Role Phone Kraig Ching MD Primary Care Provider [phone] Encounter Details Date Type Department Care Team (Late st Contact Info) Description 01/18/2014 - 01/18/2014 11:59 PM CDT Hospital Encounter [facility] Kraig Ching MD [address] [id number] Type 2 or unspecified type diabetes mellitus; Other and unspecified hyperlipidemia Social History Tobacco Use Types Packs/Day Years Used Date Smoking Tobacco: Never Assessed Sex and Gender Information Value Date Recorded Sex Assigned at Not on file 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 [facility] ? Department of Laboratories ? One [facility] ? [place] ?[facility] [address] ?[facility] ?[address] ? [address] ?[place] Patient Name: ? DAVID DREW Rec Number: ?? [id number] Date of : ?1940 Gender/Age: ? Male [...] ORDERABLES Final Re sult Performing Organization Address City/[facility] Co de Phone Number HISTORICAL RESULTS * Serum glucose (01/18/2014 5:21 PM CDT) Glucose 175 70 - 199 mg/dl HISTORICAL RESULTS Serum 01/18/2014 5:21 PM CDT Kraig Ching MD LAB BLOOD ORDERABLES Final Re sult HISTORICAL RESULTS documented in this encounter Visit Diagnoses Diagnosis Type 2 or unspecified type diabetes mellitus Other and unspecified hyperlipidemia documented in this encounter Care Teams Administrative Services Manager Relationship Specialty Start Date End Date Kraig Ching MD [address] [facility] [address] [place] [address] PCP - General 01/22/09 07/09/16 documented as of this encounter
--- OUTSIDE RECORDS SUMMARY | 2024-03-31 11:38 | XMS_ITS | Encounter Summary ---
Author Organization [facility] Facility Care Team Providers Care Demonstrator Electric Gas Appliances Name Role Phone Kraig Ching MD Primary Care Provider [phone] Encounter Details Date Type Department Care Team (Late st Contact Info) Description 03/14/2013 - 03/14/2013 11:59 PM ANIMAL NUTRITIONIST Hospital Encounter [facility] Kraig Ching MD [address] [address] Type 2 or unspecified type diabetes mellitus; Other and unspecified hyperlipidemia Social History Tobacco Use Types Packs/Day Years Used Date Smoking Tobacco: Never Assessed Sex and Gender Information Value Date Recorded Sex Assigned at Not on file Legal Sex Male 4:46 PM ANIMAL NUTRITIONIST Gender Identity Not on file Sexual Orientation [...] LABORATORY CUMULATIVE REPORT Routine 03/15/2013 9:08 AM ANIMAL NUTRITIONIST SERUM LIPID PANEL Routine 03/14/2013 3:4 3 PM ANIMAL NUTRITIONIST SERUM GLUCOSE Routine 03/14/2013 3:43 PM ANIMAL NUTRITIONIST PLASMA BASIC METABOLIC PANEL Routine 03/14/2013 3:43 PM ANIMAL NUTRITIONIST BLOOD HEMOGLOBIN A1C Routine 03/14/2013 3:43 PM ANIMAL NUTRITIONIST documented in this encounter Results * Discharge Laboratory Cumulative Report (03/15/2013 9:08 AM ANIMAL NUTRITIONIST) 03/15/2013 9:08 AM ANIMAL NUTRITIONIST Narrative HISTORICAL RESULTS - 03/15/2013 9:08 AM ANIMAL NUTRITIONIST ? [facility] ? Department of Laboratories ?[facility] [address] ?[facility] ?[address] Patient Name: ? DAVID DREW Rec Number: ?? [id number] Date of : ?1940 Gender/Age: ? Male [...] and children were not included. ??(Diabetes Care 31:5488-6849, 2008). ??The eAG is not equivalent to [...] (ABNORMAL) Serum lipid panel (03/14/2013 3:43 PM ANIMAL NUTRITIONIST) Cholesterol 252(H) 0 - 200 mg/dl HISTORICAL [...] last revised 2011. Serum 03/14/2013 3:43 PM ANIMAL NUTRITIONIST us Kraig Ching MD LAB BLOOD ORDERABLES Final Re sult Performing Organization Address [facility] de Phone Number HISTORICAL RESULTS * Plasma basic metabolic panel (03/14/2013 3:43 PM ANIMAL NUTRITIONIST) Sodium 137 135 - 145 mmol/L HISTORICAL [...] mg/dl HISTORICAL RESULTS Plasma 03/14/2013 3:43 PM ANIMAL NUTRITIONIST us Kraig Ching MD LAB BLOOD ORDERABLES Final Re sult Performing Organization Address [facility] de Phone Number HISTORICAL RESULTS * Serum glucose (03/14/2013 3:43 PM ANIMAL NUTRITIONIST) Glucose 107 70 - 199 mg/dl HISTORICAL RESULTS Serum 03/14/2013 3:43 PM ANIMAL NUTRITIONIST us Kraig Ching MD LAB BLOOD ORDERABLES Final Re sult Performing Organization Address [facility] de Phone Number HISTORICAL RESULTS * (ABNORMAL) Blood hemoglobin A1C (03/14/2013 3:43 PM ANIMAL NUTRITIONIST) Hgb A1C 7.0(H) 4.0 - 6.0 % HISTORICAL RESULTS Estimated average glucose 154 mg/dl HISTORICAL RESULTS Comment: The ADA recommends reporting an estimated Average Glucose (eAG) with all Hemoglobin A1c results using the equation derived from a study of 507 normal and diabetic adults. ??Minority populations were underrepresented and children were not included. ??(Diabetes Care 31:5749-4295, 2008). ??The eAG is not equivalent to a fasting glucose. Blood specimen (specimen) 03/14/2013 3:43 PM ANIMAL NUTRITIONIST us Kraig Ching MD LAB BLOOD ORDERABLES Final Re sult HISTORICAL RESULTS documented in this encounter Visit Diagnoses Diagnosis Type 2 or unspecified type diabetes mellitus Other and unspecified hyperlipidemia documented in this encounter Care Teams Demonstrator Electric Gas Appliances Relationship Specialty Start Date End Date Kraig Ching MD [address] [address] PCP - General 01/22/09 07/09/16 documented as of this encounter
--- OUTSIDE RECORDS SUMMARY | 2024-03-31 11:38 | XMS_ITS | Encounter Summary ---
Author Organization [facility] Facility Care Team Providers Care Real Estate Closing Coordinator Name Role Phone Mike Lerner MD Primary Care Provider [phone] Encounter Details Date Type Department Care Team (Late st Contact Info) Description 06/07/2013 - 06/07/2013 11:59 PM SALES STOCK ASSOCIATE Hospital Encounter [facility] Mike Lerner MD [address] [address] Pain in joint, shoulder region; Localized osteoarthrosis, shoulder region Social History Tobacco Use Types Packs/Day Years Used Date Smoking Tobacco: Never Assessed Sex and Gender Information Value Date Recorded Sex Assigned at Not on file Legal Sex Male 4:46 PM SALES STOCK ASSOCIATE Gender Identity Not on file Sexual [...] 2+ VW Routine 06/07/2013 12: 14 PM SALES STOCK ASSOCIATE documented in this encounter Results * XR Shoulder 2+ Vw (06/07/2013 12:14 PM SALES STOCK ASSOCIATE) Anatomical Region Laterality Modality Shoulder N/A Radiographic Roberta ging 06/07/2013 12:1 4 PM SALES STOCK ASSOCIATE Narrative 06/07/2013 12:27 PM SALES STOCK ASSOCIATE KEVIN KO M.D. FINAL REPORT ACC# ??Date Time ??Exam [id number] Jun 07, 2013 12:14:00 [id number] Shoulder minimum 2 views R EXAMINATION: ? [...] M.D. FINAL REPORT ACC# Date Time Exam [id number] Jun 07, 2013 12:14:00 [id number] Shoulder minimum 2 views R EXAMINATION: Right [...] region documented in this encounter Care Teams Real Estate Closing Coordinator Relationship Specialty Start Date End Date Mike Lerner MD [address] [address] PCP - General 01/22/09 07/09/16 documented as of this encounter
--- OUTSIDE RECORDS SUMMARY | 2024-03-31 11:38 | XMS_ITS | Encounter Summary ---
Author Organization [facility] Address [address] [place] [address] Care Team Providers Care Powerhouse Tender Name Role Phone Kraig Ching MD Primary Care Provider [phone] Reason for Visit * Reason Onset Date Comments Abdominal Pain 06/04/2017 Encounter Details Date Type Department Care Team (Late st Contact Info) Description 06/04/2017 Nurse Triage [facility] [address] [facility] [address] [place] [id number] Kraig Ching MD [address] [facility] [address] [place], [place] [id number] Social History Tobacco Use Types Packs/Day Years Used Date Smoking Tobacco: Heavy Smoker Cigarettes Last attempted t o quit: 04/12/2004 Comments:Smoking History Pac ks/day: 10 Cigarettes Alcohol Use Standard Drinks/Week Comments Yes 0 (1 standard drink = 0.6 oz pur e alcohol) Sex and Gender Information Value Date Recorded Sex Assigned at Not on file Legal Sex Male 4:46 PM BUSINESS TEACHER Gender Identity Not on file Sexual Orientation Not on file documented as of this encounter Miscellaneous Notes * Telephone Encounter - Katherine Del Rio PA - 06/04/2017 4:56 PM BUSINESS TEACHER Returned call and advised patient that cipro and flagyl have been sent to pharmacy. I advised ED ifsymptoms worsen. He expressed understanding. NESS TEACHER * Telephone Encounter - Bettye Buitrago RN [...] 60 years Protocols used: ABDOMINAL PAIN - LIPO-UHSIH-LH ACTION REQUIRED: declined appt and would like something called in to pharmacy. Routed to [facility] NESS TEACHER * Telephone Encounter - Bettye Buitrago RN - 06/04/2017 10:17 AM CST Regarding: Chief Complaint: Pain in left abdominal area, diverticulitis flare up ----- Message from Cheyanne Rodriguez MA sent at 06/04/2017 8:56 AM BUSINESS TEACHER ----- Symptom Based Call Chief Complaint: Pain [...] did not know the name of it. NESS TEACHER documented in this encounter Plan of Treatment Not on file documented as of this encounter Visit Diagnoses Not on filedocumented in this encounter Care Teams Powerhouse Tender Relationship Specialty Start Date End Date Kraig Ching MD [address] [facility] [address] [place] [address] PCP - General 07/10/16 documented as of this encounter
--- OUTSIDE RECORDS SUMMARY | 2024-03-31 11:38 | XMS_ITS | Encounter Summary ---
Author Organization [facility] Facility Care Team Providers Care Area Field Person Name Role Phone Kraig Ching MD Primary Care Provider [phone] Encounter Details Date Type Department Care Team (Late st Contact Info) Description 09/13/2012 - 09/13/2012 11:59 PM T Hospital Encounter [facility] Kraig Ching MD [address] [id number] Other and unspecified hyperlipidemia; Encounter for therapeutic drug monitoring; Encounter for long-term (current) use of other medications Social History Tobacco Use Types Packs/Day Years Used Date Smoking Tobacco: Never Assessed Sex and Gender Information Value Date Recorded Sex Assigned at Not on file Legal Sex Male 4:46 PM CASTING INSPECTOR Gender Identity Not on file Sexual [...] RESULTS - 09/13/2012 5:09 PM CDT ? [facility] ? Department of Laboratories ?[facility] [address] ?[facility] ?CAM 14-A Patient Name: ? DAVID DREW Rec Number: ?? [id number] Date of : ?1940 Gender/Age: ? Male [...] Serum lipid panel (09/13/2012 1:09 PM CDT) [facility] Cholesterol 165 0 - 200 mg/dl HISTORICAL [...] ORDERABLES Final Re sult Performing Organization Address City/[facility] Co de Phone [...] ORDERABLES Final Re sult Performing Organization Address [facility] Co de Phone Number HISTORICAL RESULTS * Serum glucose (09/13/2012 1:09 PM CDT) Glucose 110 65 - 199 mg/dl HISTORICAL RESULTS Serum 09/13/2012 1:09 PM CDT Kraig Ching MD LAB BLOOD ORDERABLES Final Re sult Performing Organization Address City/[facility]/ZIP Co de Phone Number HISTORICAL RESULTS documented in this encounter Visit Diagnoses Diagnosis Other and unspecified hyperlipidemia Encounter for therapeutic drug monitoring Encounter for long-term (current) use of other medications documented in this encounter Care Teams Area Field Person Relationship Specialty Start Date End Date Kraig Ching MD [address] [address] PCP - General 01/22/09 07/09/16 documented as of this encounter
--- OUTSIDE RECORDS SUMMARY | 2024-03-31 11:38 | XMS_ITS | Encounter Summary ---
Author Organization [facility] Facility Care Team Providers Care Optical Goods Drilling Machine Operator Name Role Phone Kraig Ching MD Primary Care Provider Encounter Details Date Type Department Care Team (Late st Contact Info) Description 07/12/2013 - 07/12/2013 11:59 PM CDT Hospital Encounter [facility] Kraig Ching MD [address] [id number] Type 2 or unspecified type diabetes mellitus; Other and unspecified hyperlipidemia; Encounter for therapeutic drug monitoring Social History Tobacco Use Types Packs/Day Years Used Date Smoking Tobacco: Never Assessed Sex and Gender Information Value Date Recorded Sex Assigned at Not on file Legal Sex Male 4:46 PM COMPUTER PATTERNMAKER Gender Identity Not on file Sexual [...] RESULTS - 07/13/2013 9:07 AM CDT ? [facility] ? Department of Laboratories ?[facility] [address] ?[facility] ?CAM 14-A Patient Name: ? DAVID DREW Rec Number: ?? [id number] Date of : ?1940 Gender/Age: ? Male [...] and children were not included. ??(Diabetes Care 31:4566-5569, 2008). ??The eAG is not equivalent to [...] RESULTS Plasma 07/12/2013 5:24 PM CDT Result [facility] Kraig Ching MD LAB BLOOD ORDERABLES Final Re sult Performing Organization Address [facility]/[place] de Phone Number HISTORICAL RESULTS * Serum glucose (07/12/2013 5:24 PM CDT) Glucose 144 70 - 199 mg/dl HISTORICAL RESULTS Serum 07/12/2013 5:24 PM CDT Result [facility] Kraig Ching MD LAB BLOOD ORDERABLES Final Re sult Performing Organization Address [facility] de Phone Number HISTORICAL RESULTS * (ABNORMAL) [...] and children were not included. ??(Diabetes Care 31:4421-5776, 2008). ??The eAG is not equivalent to a fasting glucose. Blood specimen (specimen) 07/12/2013 5:24 PM CDT Result [facility] Kraig Ching MD LAB BLOOD ORDERABLES Final Re sult Performing Organization Address [facility] de Phone Number HISTORICAL RESULTS documented in this encounter Visit Diagnoses Diagnosis Type 2 or unspecified type diabetes mellitus Other and unspecified hyperlipidemia Encounter for therapeutic drug monitoring documented in this encounter Care Teams Optical Goods Drilling Machine Operator Relationship Specialty Start Date End Date Kraig Ching MD [address] [facility] [address] [place] [address] PCP - General 01/22/09 07/09/16 documented as of this encounter
--- OUTSIDE RECORDS SUMMARY | 2024-03-31 11:38 | XMS_ITS | Encounter Summary ---
Author Organization [facility] Facility Care Team Providers Care Business Administration Program Chair Name Role Phone Kraig Ching MD Primary Care Provider [phone] Encounter Details Date Type Department Care Team (Latest Contact Info) Description 01/22/2015 10:09 AM CDT - 01/22/2015 4:00 PM T Hospital Encounter [facility] Leslee Loera MD PhD [address] [facility] [address] [place] [address] Encounter for screening for malignant neoplasm of colon; Benign neoplasm of transverse colon; Diverticulosis of intestine without perforation or abscess without bleeding; Other hemorrhoids; Type 2 diabetes mellitus without complications (CMS/HCC); Essential (primary) hypertension; Hyperlipidemia; Acute pancreatitis; Personal history of malignant neoplasm of prostate; Other chcf (current) drug therapy Social History Tobacco Use [...] history of malignant neoplasm of prostate 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
--- OUTSIDE RECORDS SUMMARY | 2024-03-31 11:38 | XMS_ITS | Encounter Summary ---
Author Organization [facility] Address [address] [place] [address] Care Team Providers Care Cullet Washer Name Role Phone Kraig Ching MD Primary Care Provider [phone] Reason for Visit * Reason Comments Follow-up Encounter Details Date Type Department Care Team (Late st Contact Info) Description 01/15/2017 10:15 AM CDT Office Visit [facility] [address] [place] [phone] Kraig Ching MD [address] [facility] [address] [place], [place] [phone] Essential hypertension (Primary Dx); Type 2 diabetes [...] file Legal Sex Male 4:46 PM MEDICAL TECHNICIANS Gender Identity Not on file Sexual Orientation [...] CDT) WBC 9.08 3.80 - 9.90 K/cumm [facility] RBC 4.64 4.30 - 5.80 M/cumm [facility] Hgb 13.5 13.0 - 17.5 g/dL [facility] Hct 40.4 38.9 - 50.3 % [facility] MCV 87.1 81.3 - 96.4 fL [facility] MCH 29.1 27.1 - 33.3 pg [facility] MCHC 33.4 32.3 - 35.7 g/dL [facility] RDW CV 13.7 11.1 - 14.9 % [facility] RDW SD 43.8 35.7 - 48.1 fL [facility] NRBC 0.0 0.0 - 0.2 % [facility] NRBC abs 0.00 0.00 - 0.01 K/cumm [facility] Plt 466(H) 150 - 400 K/cumm [facility] MPV 9.4 9.1 - 12.3 fL [facility] Blood specimen (specimen) 01/15/2017 10:50 AM CDT 01/15/2017 11:53 AM CDT us Kraig Ching MD LAB BLOOD ORDERABLES Final Re sult [facility] Department [place] [address] * (ABNORMAL) Microalbumin / creatinine ratio, urine, random (01/15/2017 10:50 AM CDT) Microalbumin, ur 30.7 mcg/mL [facility] Creatinine, ur 55.10 mg/dL [facility] Microalbumin/c reat ratio 55.7(H) 0.1 - 29.9 mcg/mg Cr [facility] Urine 01/15/2017 10:5 0 AM CDT 01/15/2017 11:53 AM CDT Kraig Ching MD LAB URINE ORDERABLES Final Re sult Performing Organization Address [facility] de Phone Number [facility] [place] [address] * (ABNORMAL) Hemoglobin A1c (01/15/2017 10:50 AM CDT) Pathologist [facility] Hgb A1C 7.2(H) 4.0 - 6.0 % [facility] Estimated Average Glucose 160 mg/dL [facility] Comment: The ADA recommends reporting an estimated Average Glucose (eAG) with all Hemoglobin A1c results using the equation derived from a study of 507 normal and diabetic adults. ??Minority populations were underrepresented and children were not included. ?? (Diabetes Care 31:1636-6866, 2008). ??The eAG is not equivalent to a fasting glucose. Blood specimen (specimen) 01/15/2017 10:50 AM CDT 01/15/2017 11:53 AM CDT Kraig Ching MD LAB BLOOD ORDERABLES Final Re sult Performing Organization Address [facility] de Phone Number [facility] [place] [address] * (ABNORMAL) Lipid panel (01/15/2017 10:50 AM CDT) Cholesterol 217(H) 30 - 200 mg/dL [facility] Comment: Interpretive Data Desirable: ?<200 mg/dL [...] ORDERABLES Final Re sult [facility] Department [place] [address] * DIABETES EYE EXAM (06/22/2016) Diabetic Eye [...] screening documented in this encounter Care Teams Cullet Washer Relationship Specialty Start Date End Date Kraig Ching MD [address] [facility] [address] [place] [address] PCP - General 07/10/16 documented as of this encounter
--- OUTSIDE RECORDS SUMMARY | 2024-03-31 11:38 | XMS_ITS | Encounter Summary ---
Author Organization [facility] Address [address] [place] [address] Care Team Providers Care Slater Apprentice Name Role Phone Kraig Ching MD Primary Care Provider [phone] Encounter Details Date Type Department Care Team (Late st Contact Info) Description 08/30/2017 11:00 AM CDT Office Visit [facility] [address] [place] [address] Kraig Ching MD [address] [facility] [address] [place], [place] [phone] Essential hypertension (Primary Dx); Type 2 diabetes mellitus with other specified complication, without long-term current use of insulin (CMS/HCC); Hyperlipidemia associated with type 2 diabetes mellitus ([facility]); Therapeutic drug monitoring; Encounter for screening; Allergy [...] on file Legal Sex Male 4:46 PM UMBRELLA MENDER Gender Identity Not on file Sexual [...] complication, without long-term current use of insulin ([facility]) - Hemoglobin A1c; Future - Microalbumin / creatinine ratio, urine, random; Future Hyperlipidemia associated with type 2 diabetes mellitus ([facility]) - Lipid panel; Future Therapeutic drug monitoring [...] CBC without differential (08/30/2017 11:20 AM CDT) [facility] WBC 8.2 3.8 - 9.9 K/cumm [facility] RBC 4.62 4.30 - 5.80 M/cumm [facility] Hgb 13.0 13.0 - 17.5 g/dL [facility] Hct 39.9 38.9 - 50.3 % [facility] MCV 86.4 81.3 - 96.4 fL [facility] MCH 28.1 27.1 - 33.3 pg [facility] MCHC 32.6 32.3 - 35.7 g/dL [facility] RDW CV 14.0 11.1 - 14.9 % [facility] RDW SD 43.8 35.7 - 48.1 fL [facility] NRBC abs 0.00 0.00 - 0.01 K/cumm [facility] Plt 502(H) 150 - 400 K/cumm [facility] MPV 9.4 9.1 - 12.3 fL [facility] Blood specimen (specimen) 08/30/2017 11:20 AM CDT 08/30/2017 1:19 PM CDT Narrative [facility] - 08/30/2017 1:27 PM CDT Kraig Ching MD LAB BLOOD ORDERABLES Final Re sult [facility] [address] [facility] Department [place] [address] * (ABNORMAL) Comprehensive metabolic panel (08/30/2017 11:20 AM CDT) Sodium 138 135 - 145 mmol/L [facility] Potassium, pl 4.5 3.3 - 4.9 mmol/L [facility] CO2 27 22 - 32 mmol/L [facility] BUN 24 8 - 25 mg/dL [facility] Glucose 96 70 - 199 mg/dL [facility] Comment: Interpretive Data Fasting glucose >/= [...] 2017. Creatinine 1.66(H) 0.80 - 1.30 mg/dL [facility] Calcium 9.5 8.5 - 10.3 mg/dL [facility] Chloride 102 97 - 110 mmol/L [facility] Albumin 4.4 3.5 - 5.0 g/dL [facility] AST 18 10 - 50 Units/L [facility] ALT 11 7 - 55 Units/L [facility] Alk phos 59 40 - 130 Units/L [facility] Bilirubin, total 0.2 0.1 - 1.2 mg/dL [facility] Protein, pl 7.3 6.5 - 8.5 g/dL [facility] Anion gap 9 2 - 15 mmol/L [facility] Blood specimen (specimen) 08/30/2017 11:20 AM CDT 08/30/2017 2:16 PM CDT Narrative [facility] - 08/30/2017 2:17 PM CDT us Kraig Ching MD LAB BLOOD ORDERABLES Final Re sult Performing Organization Address [facility]/ZIP Co de Phone Number [facility] [address] [facility] Department [place] [address] * (ABNORMAL) Microalbumin / creatinine ratio, urine, random (08/30/2017 11:20 AM CDT) Microalbumin, ur <12.0 mcg/mL [facility] Creatinine, ur 32.90 mg/dL [facility] Microalbumin/c reat ratio <36.5(H) 0.1 - 29.9 mcg/mg Cr [facility] Urine 08/30/2017 11:2 0 AM CDT 08/30/2017 2:05 PM CDT Narrative [facility] - 08/30/2017 2:06 PM CDT Kraig Ching MD LAB URINE ORDERABLES Final Re sult [facility] [address] [facility] Department [place] [address] * (ABNORMAL) Lipid panel (08/30/2017 11:20 AM [...] revised on 2015. Non-HDL Cholesterol 173 mg/dL [facility] Comment: Interpretive Data When triglycerides are >200 mg/dL, non-HDL C is a secondary target of therapy, with a goal 30 mg/dL higher than the identified LDL-C goal. Reference: ??See Cholesterol Reference. Current interpretive data was last revised 2015. Blood specimen (specimen) 08/30/2017 11:20 AM CDT 08/30/2017 2:16 PM CDT Narrative [facility] - 08/30/2017 2:17 PM CDT Kraig Ching MD LAB BLOOD ORDERABLES Final Re sult Performing Organization Address [facility] de Phone Number [facility] [place] [address] * (ABNORMAL) Hemoglobin A1c (08/30/2017 11:20 AM CDT) Hgb A1C 7.3(H) 4.0 - 5.6 % [facility] Estimated Average Glucose 163 mg/dL [facility] Comment: The ADA recommends reporting an estimated Average Glucose (eAG) with all Hemoglobin A1c results using the equation derived from a study of 507 normal and diabetic adults. ??Minority populations were underrepresented and children were not included. ?? (Diabetes Care 31:0210-5447, 2008). ??The eAG is not equivalent to a fasting glucose. Blood specimen (specimen) 08/30/2017 11:20 AM CDT 08/31/2017 2:26 AM CDT Narrative [facility] - 08/31/2017 5:47 AM CDT Kraig Ching MD LAB BLOOD ORDERABLES Final Re sult Performing Organization Address [facility] Co de Phone Number [facility] [place] [address] documented in this encounter Visit Diagnoses Diagnosis [...] documented as of this encounter Care Teams Slater Apprentice Relationship Specialty Start Date End Date Kraig Ching MD [address] [address] PCP - General 07/10/16 documented as of this encounter
--- OUTSIDE RECORDS SUMMARY | 2024-03-31 11:39 | XMS_ITS | Encounter Summary ---
Author Organization [facility] Facility Care Team Providers Care Cutlery Grinder Name Role Phone Kraig Ching MD Primary Care Provider [phone] Encounter Details Date Type Department Care Team (Late st Contact Info) Description 06/21/2007 - 04/11/2008 11:59 PM VIDEO EFFECTS EDITOR Hospital Encounter [facility] Vijay Dunn MD [address] [facility] [address] [place] [address] Social History Tobacco Use Types Packs/Day Years Used Date Smoking Tobacco: Never Assessed Sex and Gender Information Value Date Recorded Sex Assigned at Not on file Legal Sex Male 4:46 PM VIDEO EFFECTS EDITOR Gender Identity Not on file Sexual [...] on filedocumented in this encounter Care Teams Cutlery Grinder Relationship Specialty Start Date End Date Kraig Ching MD [address] [facility] [address] [place] [address] PCP - General 03/16/07 09/19/08 documented as of this encounter
--- OUTSIDE RECORDS SUMMARY | 2024-03-31 11:39 | XMS_ITS | Encounter Summary ---
Author Organization [facility] Facility Care Team Providers Care Change Over Name Role Phone Kraig Ching MD Primary Care Provider [phone] Encounter Details Date Type Department Care Team (Late st Contact Info) Description 12/02/2010 - 12/02/2010 11:59 PM CDT Hospital Encounter [facility] Kraig Ching MD [address] [phone] Type 2 or unspecified type diabetes mellitus; Benign essential hypertension; Pure hypercholesterolemia ; Encounter for long-term (current) use of other medications Social History Tobacco Use Types Packs/Day Years Used Date Smoking Tobacco: Never Assessed Sex and Gender Information Value Date Recorded Sex Assigned at Not on file Legal Sex Male 4:46 PM TOOL PLANNER Gender Identity Not on file Sexual [...] medications documented in this encounter Care Teams Change Over Relationship Specialty Start Date End Date Kraig Ching MD [address] [facility] [address] [place] [address] PCP - General 01/22/09 07/09/16 documented as of this encounter
--- OUTSIDE RECORDS SUMMARY | 2024-03-31 11:39 | XMS_ITS | Encounter Summary ---
Author Organization [facility] Facility Care Team Providers Care Sewage Plant Attendant Name Role Phone Kraig Ching MD Primary Care Provider [phone] Encounter Details Date Type Department Care Team (Late st Contact Info) Description 10/22/2009 - 10/22/2009 11:59 PM CDT Hospital Encounter [facility] Kraig Ching MD [address] [id number] Type 2 or unspecified type diabetes mellitus; Benign essential hypertension; Pure hypercholesterolemia ; Encounter for long-term (current) use of other medications Social History Tobacco Use Types Packs/Day Years Used Date Smoking Tobacco: Never Assessed Sex and Gender Information Value Date Recorded Sex Assigned at Not on file Legal Sex Male 4:46 PM TRACTOR CRANE ENGINEER Gender Identity Not on file Sexual [...] medications documented in this encounter Care Teams Sewage Plant Attendant Relationship Specialty Start Date End Date Kraig Ching MD [address] [facility] [address] [place] [address] PCP - General 01/22/09 07/09/16 documented as of this encounter
--- OUTSIDE RECORDS SUMMARY | 2024-03-31 11:39 | XMS_ITS | Encounter Summary ---
Author Organization [facility] Facility Care Team Providers Care Payroll Accounting Specialist Name Role Phone Unavailable Primary Care Provider Unavailabl e Encounter Details Date Type Department Care Team (Late st Contact Info) Description 04/14/2006 12:16 PM SENIOR ELECTRICAL PROJECT MANAGER - 04/14/2006 4:00 PM SENIOR ELECTRICAL PROJECT MANAGER Hospital Encounter [facility] [place] [address] [address] Social History Tobacco Use Types Packs/Day Years Used Date Smoking Tobacco: Never Assessed Sex and Gender Information Value Date Recorded Sex Assigned at Not on file Legal Sex Male 4:46 PM SENIOR ELECTRICAL PROJECT MANAGER Gender Identity Not on file Sexual Orientation Not on file documented as of this encounter Plan of Treatment Not on file documented as of this encounter Visit Diagnoses Not on filedocumented in this encounter
--- OUTSIDE RECORDS SUMMARY | 2024-03-31 11:39 | XMS_ITS | Encounter Summary ---
Author Organization [facility] Facility Care Team Providers Care Clinical Nurse Specialist Name Role Phone Unavailable Primary Care Provider Unavailabl e Encounter Details Date Type Department Care Team (Late st Contact Info) Description 04/27/2006 7:25 AM [facility] - 04/28/2006 10:57 AM [facility] Hospital Encounter [facility] [place] [address] [address] Social History Tobacco Use Types Packs/Day Years Used Date Smoking Tobacco: Never Assessed Sex and Gender Information Value Date Recorded Sex Assigned at Not on file Legal Sex Male 4:46 PM [facility] Gender Identity Not on file Sexual Orientation Not on file documented as of this encounter Plan of Treatment Not on file documented as of this encounter Visit Diagnoses Not on filedocumented in this encounter
--- OUTSIDE RECORDS SUMMARY | 2024-03-31 11:39 | XMS_ITS | Encounter Summary ---
Author Organization [facility] Facility Care Team Providers Care Desolderer Name Role Phone Kraig Ching MD Primary Care Provider [phone] Encounter Details Date Type Department Care Team (Late st Contact Info) Description 01/22/2009 - 01/22/2009 11:59 PM CDT Hospital Encounter [facility] Kraig Ching MD [address] [id number] Type 2 or unspecified type diabetes mellitus; Benign essential hypertension; Pure hypercholesterolemia ; Encounter for long-term (current) use of other medications Social History Tobacco Use Types Packs/Day Years Used Date Smoking Tobacco: Never Assessed Sex and Gender Information Value Date Recorded Sex Assigned at Not on file Legal Sex Male 4:46 PM DICTAPHONE OPERATOR Gender Identity Not on file Sexual [...] medications documented in this encounter Care Teams Desolderer Relationship Specialty Start Date End Date Kraig Ching MD [address] [facility] [address] [place] [address] PCP - General 01/22/09 07/09/16 documented as of this encounter
--- OUTSIDE RECORDS SUMMARY | 2024-03-31 11:39 | XMS_ITS | Encounter Summary ---
Author Organization [facility] Facility Care Team Providers Care Ship Steward Name Role Phone Kraig Ching MD Primary Care Provider [phone] Encounter Details Date Type Department Care Team (Late st Contact Info) Description 06/20/2012 - 06/20/2012 11:59 PM CDT Hospital Encounter [facility] Kraig Ching MD [address] [id number] Hematuria; Acquired cyst of kidney; Personal history of malignant neoplasm of prostate Social History Tobacco Use Types Packs/Day Years Used Date Smoking Tobacco: Never Assessed Sex and Gender Information Value Date Recorded Sex Assigned at Not on file Legal Sex Male 4:46 PM FRONT DESK 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 Gender Identity Not on file Sexual [...] agrees with it. ACC# ??Date Time ??Exam [id number] Jun 20, 2012 14:00:00 [id number] US Retroper cmp EXAMINATION: ?COMPLETE RENAL SONOGRAM [...] agrees with it. ACC# Date Time Exam [id number] Jun 20, 2012 14:00:00 35150 US Retroper cmp EXAMINATION: COMPLETE RENAL SONOGRAM [...] prostate documented in this encounter Care Teams Ship Steward Relationship Specialty Start Date End Date Kraig Ching MD [address] [facility] [address] [place] [address] PCP - General 01/22/09 07/09/16 documented as of this encounter
--- OUTSIDE RECORDS SUMMARY | 2024-03-31 11:39 | XMS_ITS | Encounter Summary ---
Author Organization [facility] Facility Care Team Providers Care Associate Store Leader Name Role Phone Kraig Ching MD Primary Care Provider [phone] Encounter Details Date Type Department Care Team (Late st Contact Info) Description 06/16/2012 - 06/16/2012 11:59 PM CHIEF DIETITIAN Hospital Encounter [facility] Kraig Ching MD [address] [address] Other and unspecified hyperlipidemia; Hematuria; Other malaise and fatigue; Special screening for malignant neoplasm of prostate Social History Tobacco Use Types Packs/Day Years Used Date Smoking Tobacco: Never Assessed Sex and Gender Information Value Date Recorded Sex Assigned at Not on file Legal Sex Male 4:46 PM CHIEF DIETITIAN Gender Identity Not on file Sexual Orientation [...] LABORATORY CUMULATIVE REPORT Routine 06/16/2012 5:09 PM CHIEF DIETITIAN SERUM PROSTATE-SPECIFIC ANTIGEN (PSA) Routine 06/16/2012 11:27 AM CHIEF DIETITIAN SERUM LIPID PANEL Routine 06/16/2012 11: 27 AM CHIEF DIETITIAN SERUM GLUCOSE Routine 06/16/2012 11:27 AM CHIEF DIETITIAN PLASMA COMPREHENSIVE METABOLIC PANEL Routine 06/16/2012 11:27 AM CHIEF DIETITIAN BLOOD CELL COUNT Routine 06/16/2012 11:2 7 AM CHIEF DIETITIAN URINALYSIS Routine 06/16/2012 11:27 AM CHIEF DIETITIAN documented in this encounter Results * Discharge Laboratory Cumulative Report (06/16/2012 5:09 PM CHIEF DIETITIAN) 06/16/2012 5:09 PM CHIEF DIETITIAN Narrative HISTORICAL RESULTS - 06/16/2012 5:09 PM CHIEF DIETITIAN ? [facility] ? Department of Laboratories ?[facility] [address] ?[facility] ?CAM 14-A Patient Name: ? DAVID DREW Med Rec Number: ?? [id number] Date of : ?1940 Gender/Age: ? Male [...] ? [Yellow] Clarity ? Clear ?[Clear] Specific Meacham ??1.004 ?[1.003-1.030] pH ?6.5 ?[5.0-8.0] Albumin ? [...] fL ?6.8-10.4 Historical Provider LAB BLOOD ORDERABLES Casi l Result Performing Organization Address [facility] de Phone Number HISTORICAL RESULTS * Urinalysis (06/16/2012 11:27 AM CHIEF DIETITIAN) Color, ur Light-Yellow Yellow HISTORI CHRISTIAN RESULTS [...] HISTORICAL RESULTS Urine 06/16/2012 11:2 7 AM CHIEF DIETITIAN Kraig Ching MD LAB BLOOD ORDERABLES Final Re sult Performing Organization Address [facility] de Phone Number HISTORICAL RESULTS * Serum prostate-specific antigen (PSA) (06/16/2012 11:27 AM CHIEF DIETITIAN) PSA 0.2 0.0 - 4.0 ng/ml HISTORICAL RESULTS Serum 06/16/2012 11:2 7 AM CHIEF DIETITIAN us Kraig Ching MD LAB BLOOD ORDERABLES Final Re sult HISTORICAL RESULTS * Serum lipid panel (06/16/2012 11:27 AM CHIEF DIETITIAN) Cholesterol 154 0 - 200 mg/dl HISTORICAL [...] revised 2011. Serum 06/16/2012 11:2 7 AM CHIEF DIETITIAN Kraig Ching MD LAB BLOOD ORDERABLES Final Re sult Performing Organization Address [facility] de Phone Number HISTORICAL RESULTS * Plasma comprehensive metabolic panel (06/16/2012 11:27 AM CHIEF DIETITIAN) Sodium 139 135 - 145 mmol/L HISTORICAL [...] HISTORICAL RESULTS Plasma 06/16/2012 11:2 7 AM CHIEF DIETITIAN Kraig Ching MD LAB BLOOD ORDERABLES Final Re sult Performing Organization Address [facility] de Phone Number HISTORICAL RESULTS * Serum glucose (06/16/2012 11:27 AM CHIEF DIETITIAN) Glucose 112 65 - 199 mg/dl HISTORICAL RESULTS Serum 06/16/2012 11:2 7 AM CHIEF DIETITIAN Kraig Ching MD LAB BLOOD ORDERABLES Final Re sult Performing Organization Address [facility] de Phone Number HISTORICAL RESULTS * (ABNORMAL) Blood cell count [CBC] express (06/16/2012 11:27 AM CHIEF DIETITIAN) WBC 7.5 3.8 - 9.8 K/cumm HISTORICAL [...] RESULTS Blood specimen (specimen) 06/16/2012 11:27 AM CHIEF DIETITIAN Kraig Ching MD LAB BLOOD ORDERABLES Final Re sult HISTORICAL RESULTS documented in this encounter Visit Diagnoses Diagnosis Other and unspecified hyperlipidemia Hematuria Hematuria, unspecified Other malaise and fatigue Special screening for malignant neoplasm of prostate documented in this encounter Care Teams Associate Store Leader Relationship Specialty Start Date End Date Kraig Ching MD [address] [place] [address] PCP - General 01/22/09 07/09/16 documented as of this encounter
--- OUTSIDE RECORDS SUMMARY | 2024-03-31 11:39 | XMS_ITS | Encounter Summary ---
Author Organization [facility] Facility Care Team Providers Care Trestleman Name Role Phone Kraig Ching MD Primary Care Provider [phone] Kraig Ching MD Primary Care Provider [phone] Encounter Details Date Type Department Care Team (Late st Contact Info) Description 07/13/2006 - 04/11/2007 11:59 PM GRIZZLY WORKER Hospital [facility] [address] [facility] [address] [place] [address] Social History Tobacco Use Types Packs/Day Years Used Date Smoking Tobacco: Never Assessed Sex and Gender Information Value Date Recorded Sex Assigned at Not on file Legal Sex Male 4:46 PM GRIZZLY WORKER Gender Identity Not on file Sexual [...] on filedocumented in this encounter Care Teams Trestleman Relationship Specialty Start Date End Date Kraig Ching MD [address] [place] [address] PCP - General 03/16/07 09/19/08 Kraig Ching MD [address] [address] PCP - General 06/23/06 03/15/07 documented as of this encounter
--- OUTSIDE RECORDS SUMMARY | 2024-03-31 11:39 | XMS_ITS | Encounter Summary ---
Author Organization [facility] Facility Care Team Providers Care Road Freight Conductor Name Role Phone Kraig Cihng MD Primary Care Provider [phone] Encounter Details Date Type Department Care Team (Late st Contact Info) Description 05/21/2009 - 05/21/2009 11:59 PM COLLECTIVE BARGAINING SPECIALIST Hospital Encounter [facility] Kraig Ching MD [address] [address] Type 2 or unspecified type diabetes mellitus; Benign essential hypertension; Nocturia; Other malaise and fatigue; Pure hypercholesterolemia ; Anemia; Special screening for malignant neoplasm of prostate Social History Tobacco Use Types Packs/Day Years Used Date Smoking Tobacco: Never Assessed Sex and Gender Information Value Date Recorded Sex Assigned at Not on file Legal Sex Male 4:46 PM COLLECTIVE BARGAINING SPECIALIST Gender Identity Not on file Sexual [...] prostate documented in this encounter Care Teams Road Freight Conductor Relationship Specialty Start Date End Date Kraig Ching MD [address] [address] PCP - General 01/22/09 07/09/16 documented as of this encounter
--- OUTSIDE RECORDS SUMMARY | 2024-03-31 11:39 | XMS_ITS | Encounter Summary ---
Author Organization [facility] Facility Care Team Providers Care Residential Direct Support Professional Name Role Phone Kraig Ching MD Primary Care Provider [phone] Encounter Details Date Type Department Care Team (Latest Contact Info) Description 07/09/2010 - 07/09/2010 11:59 PM CDT Hospital Encounter [facility] Kraig Ching MD [address] [address] Backache; Type 2 or unspecified type diabetes mellitus; Encounter for long-term (current) use of other medications; Benign essential hypertension; Pure hypercholesterolemia Social History Tobacco Use Types Packs/Day Years Used Date Smoking Tobacco: Never Assessed Sex and Gender Information Value Date Recorded Sex Assigned at Not on file Legal Sex Male 4:46 PM STEAM BONE PRESS TENDER Gender Identity Not on file [...] hypercholesterolemia documented in this encounter Care Teams Residential Direct Support Professional Relationship Specialty Start Date End Date Kraig Ching MD [address] [facility] [address] [place] [address] PCP - General 01/22/09 07/09/16 documented as of this encounter
--- OUTSIDE RECORDS SUMMARY | 2024-03-31 11:39 | XMS_ITS | Encounter Summary ---
Author Organization [facility] Facility Care Team Providers Care Scout Sniper Name Role Phone Kraig Ching MD Primary Care Provider [phone] Encounter Details Date Type Department Care Team (Latest Contact Info) Description 04/30/2011 - 04/30/2011 11:59 PM DAIRY TESTER Hospital Encounter [facility] Kraig Ching MD [address] [address] Type 2 or unspecified type diabetes mellitus; Encounter for aftercare; Benign essential hypertension; Pure hypercholesterolemia Social History Tobacco Use Types Packs/Day Years Used Date Smoking Tobacco: Never Assessed Sex and Gender Information Value Date Recorded Sex Assigned at Not on file Legal Sex Male 4:46 PM DAIRY TESTER Gender Identity Not on file Sexual [...] hypercholesterolemia documented in this encounter Care Teams Scout Sniper Relationship Specialty Start Date End Date Kraig Ching MD [address] [address] PCP - General 01/22/09 07/09/16 documented as of this encounter
--- OUTSIDE RECORDS SUMMARY | 2024-03-31 11:39 | XMS_ITS | Encounter Summary ---
Author Organization [facility] Facility Care Team Providers Care Orthotist Name Role Phone Kraig Ching MD Primary Care Provider [phone] Encounter Details Date Type Department Care Team (Late st Contact Info) Description 06/20/2009 7:10 AM HEALTH AND SAFETY MANAGER - 06/20/2009 4:00 PM [facility] Hospital [facility] Benign neoplasm of rectum [...] file Legal Sex Male 4:46 PM HEALTH AND SAFETY MANAGER Gender Identity Not on file [...] prostate documented in this encounter Care Teams Orthotist Relationship Specialty Start Date End Date Kraig Ching MD [address] [address] PCP - General 01/22/09 07/09/16 documented as of this encounter
--- OUTSIDE RECORDS SUMMARY | 2024-03-31 11:39 | XMS_ITS | Encounter Summary ---
Author Organization [facility] Facility Care Team Providers Care Manufacturing Tech Name Role Phone Kraig Ching MD Primary Care Provider [phone] Encounter Details Date Type Department Care Team (Late st Contact Info) Description 07/05/2008 12:00 PM CDT - 07/05/2008 4:00 PM T [facility] Matt Luna [facility] [address] [facility] [address] [place] [address] Pain in joint, lower leg Social History Tobacco Use Types Packs/Day Years Used Date Smoking Tobacco: Never Assessed Sex and Gender Information Value Date Recorded Sex Assigned at Not on file Legal Sex Male 4:46 PM SHIPPING AND RECEIVING ASSOCIATE Gender Identity Not on file Sexual [...] leg documented in this encounter Care Teams Manufacturing Tech Relationship Specialty Start Date End Date Kraig Ching MD [address] [address] PCP - General 03/16/07 09/19/08 documented as of this encounter
--- OUTSIDE RECORDS SUMMARY | 2024-03-31 11:39 | XMS_ITS | Encounter Summary ---
Author Organization [facility] Facility Care Team Providers Care Currency Machine Operator Name Role Phone Kraig Ching MD Primary Care Provider [phone] Encounter Details Date Type Department Care Team (Late st Contact Info) Description 09/20/2008 - 09/20/2008 11:59 PM CDT Hospital Encounter [facility] Kraig Ching MD [address] [address] Benign essential hypertension; Pure hypercholesterolemia ; Encounter for long-term (current) use of other medications Social History Tobacco Use Types Packs/Day Years Used Date Smoking Tobacco: Never Assessed Sex and Gender Information Value Date Recorded Sex Assigned at Not on file Legal Sex Male 4:46 PM DRAW OFF WORKER Gender Identity Not on file Sexual [...] medications documented in this encounter Care Teams Currency Machine Operator Relationship Specialty Start Date End Date Kraig Ching MD [address] [address] PCP - General 09/20/08 01/21/09 documented as of this encounter
--- OUTSIDE RECORDS SUMMARY | 2024-03-31 11:39 | XMS_ITS | Encounter Summary ---
Author Organization [facility] Facility Care Team Providers Care Derivatives Trader Name Role Phone Kraig Ching MD Primary Care Provider [phone] Encounter Details Date Type Department Care Team (Late st Contact Info) Description 09/14/2011 - 09/14/2011 11:59 PM T Hospital Encounter [facility] Kraig Ching MD [address] [address] Type 2 or unspecified type diabetes mellitus; Pure hypercholesterolemia ; Benign essential hypertension; Encounter for long-term (current) use of other medications Social History Tobacco Use Types Packs/Day Years Used Date Smoking Tobacco: Never Assessed Sex and Gender Information Value Date Recorded Sex Assigned at Not on file Legal Sex Male 4:46 PM RADIO BOARD OPERATOR Gender Identity Not on file Sexual [...] medications documented in this encounter Care Teams Derivatives Trader Relationship Specialty Start Date End Date Kraig Ching MD [address] [facility] [address] [place] [address] PCP - General 01/22/09 07/09/16 documented as of this encounter
--- OUTSIDE RECORDS SUMMARY | 2024-03-31 11:39 | XMS_ITS | Encounter Summary ---
Author Organization [facility] Facility Care Team Providers Care Custom Miller Name Role Phone Kraig Ching MD Primary Care Provider [phone] Kraig Ching MD Primary Care Provider [phone] Kraig Ching MD Primary Care Provider [phone] Encounter Details Date Type Department Care Team (Late st Contact Info) Description 06/19/2008 - 04/11/2009 11:59 PM DISTILLERY WORKER Hospital Encounter [facility] Vijay Dunn MD [address] [facility] [address] [place] [address] Social History Tobacco Use Types Packs/Day Years Used Date Smoking Tobacco: Never Assessed Sex and Gender Information Value Date Recorded Sex Assigned at Not on file Legal Sex Male 4:46 PM DISTILLERY WORKER Gender Identity Not on file Sexual [...] on filedocumented in this encounter Care Teams Custom Miller Relationship Specialty Start Date End Date Kraig Ching MD [address] [address] PCP - General 01/22/09 07/09/16 Kraig Ching MD [address] [address] PCP - General 09/20/08 01/21/09 Kraig Ching MD [address] [address] PCP - General 03/16/07 09/19/08 documented as of this encounter
--- OUTSIDE RECORDS SUMMARY | 2024-03-31 11:39 | XMS_ITS | Encounter Summary ---
Author Organization [facility] Facility Care Team Providers Care Softball Player Name Role Phone Kraig Ching MD Primary Care Provider [phone] Encounter Details Date Type Department Care Team (Late st Contact Info) Description 06/04/2008 - 06/04/2008 11:59 PM MAINTENANCE MAN Hospital Encounter [facility] Kraig Ching MD [address] [address] Other chest pain; Cardiomegaly; Type 2 or unspecified type diabetes mellitus; Pure hypercholesterolemia ; Essential hypertension; Tobacco use disorder Social History Tobacco Use Types Packs/Day Years Used Date Smoking Tobacco: Never Assessed Sex and Gender Information Value Date Recorded Sex Assigned at Not on file Legal Sex Male 4:46 PM MAINTENANCE MAN Gender Identity Not on file Sexual [...] disorder documented in this encounter Care Teams Softball Player Relationship Specialty Start Date End Date Kraig Ching MD [address] [facility] [address], [place] [address] PCP - General 03/16/07 09/19/08 documented as of this encounter
--- OUTSIDE RECORDS SUMMARY | 2024-03-31 11:39 | XMS_ITS | Encounter Summary ---
Author Organization [facility] Facility Care Team Providers Care Mainframe Applications Developer Name Role Phone Kraig Ching MD Primary Care Provider [phone] Encounter Details Date Type Department Care Team (Late st Contact Info) Description 05/23/2008 - 05/23/2008 11:59 PM TAXI PROPRIETOR Hospital En[facility] Kraig Ching MD [address] [address] Chest pain Social History Tobacco Use Types Packs/Day Years Used Date Smoking Tobacco: Never Assessed Sex and Gender Information Value Date Recorded Sex Assigned at Not on file Legal Sex Male 4:46 PM TAXI PROPRIETOR Gender Identity Not on file Sexual Orientation [...] pain documented in this encounter Care Teams Mainframe Applications Developer Relationship Specialty Start Date End Date Kraig Ching MD [address] [facility] [address] [place] [address] PCP - General 03/16/07 09/19/08 documented as of this encounter
--- OUTSIDE RECORDS SUMMARY | 2024-03-31 11:39 | XMS_ITS | Encounter Summary ---
Author Organization [facility] Facility Care Team Providers Care Job Coach/Job Developer Name Role Phone Kraig Ching MD Primary Care Provider [phone] Encounter Details Date Type Department Care Team (Latest Contact Info) Description 02/11/2010 - 02/11/2010 11:59 PM CDT Hospital Encounter [facility] Kraig Ching MD [address] [address] Low back pain; Congenital spondylolisthesis Social History Tobacco Use Types Packs/Day Years Used Date Smoking Tobacco: Never Assessed Sex and Gender Information Value Date Recorded Sex Assigned at Not on file Legal Sex Male 4:46 PM NEUROUROLOGIST Gender Identity Not on file Sexual Orientation [...] spondylolisthesis documented in this encounter Care Teams Job Coach/Job Developer Relationship Specialty Start Date End Date Kraig Ching MD [address] [address] PCP - General 01/22/09 07/09/16 documented as of this encounter
[2024-03-31] MEDS: AMOXICILLIN/CLAVULANATE K 500-125 MG TAB 1 TABLET PO ×2 (12:25→20:06)
[2024-03-31 16:27] LABS: Glucose Point of Care 189 mg/dl (65-105)
[2024-03-31] MEDS: INSULIN GLARGINE (*BKC) 100 UNITS/ML 28 UNITS SUB-Q (20:06)
[2024-03-31 20:39] LABS: Glucose Point of Care 258 mg/dl (65-105)
[2024-03-31] MEDS: ABIRATERONE 250 MG PO (22:44)
[2024-03-31] MEDS: [UNRECOGNIZED DRUG - OTHER] PO (22:44)
[2024-04-01] VITALS (18 sets, daily range): BP systolic 127–160; BP diastolic 85–97; PULSE 58–90; RESP 16–20; TEMP 36.2–36.4; O2SAT 94–97
[2024-04-01 05:51] LABS: Glucose Point of Care 66 mg/dl (65-105)
[2024-04-01 06:26] LABS: Hematocrit 38.1 % (42.0-52.0); Hemoglobin 11.8 g/dL (14.0-18.0); Mean Corpuscular Hemoglobin 27.9 pg (26-34); Mean Corpuscular Volume 90.1 fl (80-100); Mean Platelet Volume 9.6 fl (7.4-10.4); Platelet Count Result 410 k/mm3 (150-375); Red Blood Count 4.23 M/mm3 (4.6-6.20); Red Cell Distribution Width 13.7 % (11.5-14.5)
[2024-04-01 06:30] LABS: Glucose Point of Care 110 mg/dl (65-105)
[2024-04-01 06:45] LABS: Alanine Aminotransferase 16 U/L (6-50); Albumin Level 3.7 g/dL (3.5-5.1); Alkaline Phosphatase 103 U/L (38-126); Anion Gap 5 mmol/L (4-12); Aspartate Amino Transferase 19 U/L (17-59); Bilirubin,Total 0.5 mg/dL (0.2-1.3); Blood Urea Nitrogen 31 mg/dL (9-20); Calcium 9.2 mg/dL (8.4-10.2); Carbon Dioxide 32 mmol/L (22-30); Chloride 103 mmol/L (98-107); Estimated CRCL calculation 27 ml/min; Estimated Glomerular Filt Rate 32; Glucose 85 mg/dL (65-110); Magnesium 1.8 mg/dL (1.6-2.3); Phosphorus 3.9 mg/dL (2.5-4.5); Potassium 4.3 mmol/L (3.4-5.0); Sodium 140 mmol/L (137-145)
[2024-04-01] MEDS: IPRATROPIUM 0.5 MG/ALBUTEROL SULFATE 2.5 MG AMPUL.NEB 3 ML INHALATION ×3 (07:17→20:11)
[2024-04-01 08:02] LABS: Glucose Point of Care 177 mg/dl (65-105)
[2024-04-01] MEDS: PANTOPRAZOLE 40 MG TABLET PO (09:41)
[2024-04-01] MEDS: DORZOLAMIDE/TIMOLOL OPHTH SOL 10 ML BOTTLE 1 DROP EACH EYE ×2 (09:42→20:34)
[2024-04-01] MEDS: AMOXICILLIN/CLAVULANATE K 500-125 MG TAB 1 TABLET PO ×2 (09:42→20:33)
[2024-04-01] MEDS: carvediloL 12.5 MG TABLET PO ×2 (09:42→20:33)
[2024-04-01] MEDS: predniSONE 5 MG TABLET PO ×2 (09:42→20:34)
[2024-04-01 11:31] LABS: Glucose Point of Care 210 mg/dl (65-105)
--- NOTE | 2024-04-01 14:18 | P.PNNP_ITS ---
Progress Note: A&P Assessment and Plan (1) GABRIELA (acute kidney injury): Code(s): N17.9 - Acute kidney failure, unspecified Status: Acute Assessment and Plan: * GABRIELA on CKD * close to baseline on admission * deterioration noted 24 hours later (from 2.4 --> 3.3mg/dl on 03/27/24) * now back to 2.0 * may be lower than baseline due to hospitalization/sedentary state/lower creatinine generation * suspect due to several issues: * prerenal factors (nausea/vomiting/diarrhea on admission) * relative hypotension (210 systolic in ER but dropped to 80s) * infection/early sepsis (pyelonephritis) * contrast exposure (CTA of chest on 03/26) * SARAH-I + diuretic use prior to admission * evaluation to date: * renal ultrasound normal * urine eosinophil negative * urine electrolytes prerenal (by FeUrea) * UA not indicative of infection * moderate proteinuria * holding lisinopril and diuretics at this time * check creatinine tomorrow. (2) Stage 3b chronic kidney disease: Code(s): N18.32 - Chronic kidney disease, stage 3b Status: Acute Assessment and Plan: * baseline creatinine seems to run ~ 1.9 - 2.3mg/dl since 2021 * this causes him to fluctuate between CKD stage 3B and stage 4 * last outpatient creatinine about in January 2024 was 1.93mg/dl * CKD likely secondary to HTN, diabetes, vascular disease, and age-related change * follows with [facility] (Dr. Lin Guerrero) (3) Pyelonephritis: Code(s): N12 - Tubulo-interstitial nephritis, not specified as acute or chronic Status: Acute Assessment and Plan: * suggestive by admission CT scan * follow culture data - negative to date * on unasyn * continue supportive therapy (4) Shortness of breath: Code(s): R06.02 - Shortness of breath Status: Acute Assessment and Plan: * etiology? * imaging noted: * CTA chest negative for PE or other acute pathology * CXR negative. * due to reactive airway disease versus known history of COPD * oxygenation okay * on room air (5) Anemia: Code(s): D64.9 - Anemia, unspecified Status: Acute Assessment and Plan: * presumably related to GABRIELA and acute illness * follow trend of H/H (6) Hypertension: Code(s): I10 - Essential (primary) hypertension Status: Chronic Assessment and Plan: * BP up and down, ranging 120s to 160s last three readings. * off all bp meds. * restart the sarah inh if trend is too high (7) Type 2 diabetes mellitus: Code(s): E11.9 - Type 2 diabetes mellitus without complications Status: Chronic Assessment and Plan: * follow accu-cheks * glycemic control per hospitalists Subjective Date/time seen: 04/01/24 14:18 Interval history: patient feels okay. eager for discharge. Review of Systems Cardiovascular: Cardiovascular: Reports no additional cardiovascular complaints Respiratory: Respiratory: Reports no additional respiratory complaints Gastrointestinal: Gastrointestinal: Reports no additional gastrointestinal complaints Genitourinary: Genitourinary: Reports no additional male genitourinary complaints Exam Narrative: WDWN in NAD skin no rash head ncat lungs clear cor reg no rub abd BS+ nontender and soft ext no edema. Objective Data Vital Signs Vital Signs: Vital Signs - 24 hr 03/31/24 14:22 03/31/24 14:27 03/31/24 20:00 Temperature Pulse Rate 69 73 Respiratory Rate 16 16 Blood Pressure Pulse Oximetry Oxygen Delivery Room Air 03/31/24 20:00 03/31/24 20:06 03/31/24 20:51 Temperature Pulse Rate 71 77 89 Respiratory Rate 20 Blood Pressure Pulse Oximetry Oxygen Delivery 03/31/24 20:53 03/31/24 20:59 03/31/24 21:03 Temperature 98.6 F Pulse Rate 82 76 Respiratory Rate 20 18 Blood Pressure 129/86 Pulse Oximetry 95 97 Oxygen Delivery Room Air 04/01/24 00:00 04/01/24 04:00 04/01/24 06:00 Temperature 97.5 F L Pulse Rate 69 68 69 Respiratory Rate 18 Blood Pressure 160/88 H Pulse Oximetry 97 Oxygen Delivery 04/01/24 07:19 04/01/24 07:19 04/01/24 07:29 Temperature Pulse Rate 58 L 67 Respiratory Rate 20 20 Blood Pressure Pulse Oximetry 94 Oxygen Delivery Room Air 04/01/24 08:00 04/01/24 08:00 04/01/24 09:42 Temperature Pulse Rate 85 70 Respiratory Rate Blood Pressure Pulse Oximetry Oxygen Delivery Room Air 04/01/24 13:41 04/01/24 13:50 Temperature Pulse Rate 70 65 Respiratory Rate 20 20 Blood Pressure Pulse Oximetry Oxygen Delivery Intake/Output Intake/Output: Intake & Output 03/29/24 03/30/24 03/31/24 04/01/24 23:59 23:59 23:59 23:59 Intake Total 1096 1398 3700 1520 Output Total 051 529 3430 Balance 512 978 8281 1520 Meds/Results Medications: Active Medications Generic Name Dose Route Start Last Admin Trade Name Freq PRN Reason Stop Dose Admin Acetaminophen 1,000 mg 03/31/24 17:01 Acetaminophen 500 Mg Tablet PO TID PRN Pain Rated 1-3 Albuterol 2 puff 03/31/24 17:01 Albuterol Sulfate (*Sp) Aerosol 1 Puff INHALATION QID PRN shortness of breath or wheezing Albuterol/Ipratropium 3 ml 03/27/24 00:03 04/01/24 13:41 Ipratropium 0.5 Mg/Albuterol Sulfate 2.5 Mg Ampul.Neb 3 Ml INHALATION 3 ml Q6HRT PJ Administration Amoxicillin/Clavulanate Potassium 1 tablet 03/31/24 12:00 04/01/24 09:42 Amoxicillin/Clavulanate K 500-125 Mg Tab PO 04/01/24 21:01 1 tablet Q12HR PJ Administration Carvedilol 12.5 mg 03/26/24 09:00 04/01/24 09:42 Carvedilol 12.5 Mg Tablet PO 12.5 mg Q12HR PJ Administration Dorzolamide/Timolol 1 drop 03/26/24 22:25 04/01/24 09:42 Dorzolamide/Timolol Ophth Sarah 10 Ml Bottle EACH EYE 1 drop Q12HR PJ Administration Enoxaparin Sodium 30 mg 03/28/24 09:00 04/01/24 09:52 Enoxaparin 30 Mg/0.3 Ml Syringe SUB-Q Not Given DAILY [facility] Insulin Aspart 7 units 03/27/24 17:00 04/01/24 09:45 Insulin Aspart (*Bkc) 100 Units/Ml SUB-Q Not Given TIDWM [facility] Insulin Glargine 28 units 03/31/24 21:00 03/31/24 20:06 Insulin Glargine (*Bkc) 100 Units/Ml SUB-Q 28 units QHS PJ Administration Non-Formulary Medication 1,000 mg 03/27/24 21:00 03/31/24 22:44 Abiraterone PO 04/26/24 20:59 1,000 mg HS PJ Administration Oxycodone HCl 5 mg 03/26/24 22:22 Oxycodone Hcl (*Crx) 5 Mg Tab Ir PO Q6H PRN pain Pantoprazole Sodium 40 mg 03/27/24 09:00 04/01/24 09:41 Pantoprazole 40 Mg Tablet PO 40 mg DAILY PJ Administration Polyethylene Glycol 17 gm 03/30/24 09:55 04/01/24 09:52 Polyethylene Glycol 3350 17 Gm Powd.Pack PO Not Given QAM PJ Prednisone 5 mg 03/26/24 22:25 04/01/24 09:42 Prednisone 5 Mg Tablet PO 5 mg Q12HR PJ Administration Radiology Results: ITS Impressions Chest CTA 03/26/24 15:51 IMPRESSION: Motion limited examination. Suboptimal visualization of the bilateral lower lobe segmental and subsegmental arteries as well as subsegmental arteries in the lingula and right middle lobe. As No CT evidence of acute pulmonary embolus in the adequately visualized pulmonary arteries. No acute process detected in the chest. Abdomen/Pelvis CT 03/26/24 17:24 IMPRESSION: Striated appearing nephrograms which can occur with acute pyelonephritis, acute tubular necrosis, and hypotension. No signs of obstruction or medullary sponge kidney. Renal Ultrasound 03/28/24 13:46 IMPRESSION: No definite abnormality seen. Chest X-Ray 03/29/24 17:14 IMPRESSION: 1. Mild pulmonary edema in the lower lungs, right greater left. Labs Labs: Laboratory Results - last 24 hr 03/31/24 03/31/24 04/01/24 16:24 19:44 05:47 WBC RBC Hgb Hct MCV MCH MCHC RDW Plt Count MPV Sodium Potassium Chloride Carbon Dioxide Anion Gap BUN Creatinine Estim Creat Clear Calc Estimated GFR Glucose POC Capillary Glucose 189 H 258 H 66 Calcium Phosphorus Magnesium Total Bilirubin AST ALT Alkaline Phosphatase Total Protein Albumin 04/01/24 04/01/24 04/01/24 06:12 06:27 07:50 WBC 10.0 RBC 4.23 L Hgb 11.8 L Hct 38.1 L MCV 90.1 MCH 27.9 MCHC 31.0 L RDW 13.7 Plt Count 410 H MPV 9.6 Sodium 140 Potassium 4.3 Chloride 103 Carbon Dioxide 32 H Anion Gap 5 BUN 31 H Creatinine 2.00 H Estim Creat Clear Calc 27 Estimated GFR 32 L Glucose 85 POC Capillary Glucose 110 H 177 H Calcium 9.2 Phosphorus 3.9 Magnesium 1.8 Total Bilirubin 0.5 AST 19 ALT 16 Alkaline Phosphatase 103 Total Protein 7.0 Albumin 3.7 04/01/24 11:20 WBC RBC Hgb Hct MCV MCH MCHC RDW Plt Count MPV Sodium Potassium Chloride Carbon Dioxide Anion Gap BUN Creatinine Estim Creat Clear Calc Estimated GFR Glucose POC Capillary Glucose 210 H Calcium Phosphorus Magnesium Total Bilirubin AST ALT Alkaline Phosphatase Total Protein Albumin
--- NOTE | 2024-04-01 14:25 | P.PNIM_ITS ---
Progress Note: A&P Assessment and Plan (1) Sepsis: Code(s): A41.9 - Sepsis, unspecified organism Status: Acute Assessment and Plan: * Initially meeting SIRS and sepsis criteria with a white blood cell count of 1 2.6, temp 102.2?, pulse 111, respiratory rate 24, 12.6, GABRIELA with a creatinine of 3.3 * Blood cultures were obtained and negative on final read * CT showing pyelonephritis * Continue Augmentin (2) Pyelonephritis: Code(s): N12 - Tubulo-interstitial nephritis, not specified as acute or chronic Status: Acute Assessment and Plan: * Continue Augmentin * Blood cultures were negative on final read * No urine culture was obtained * UA showed cloudy appearance, 2+ urine protein, 1+ ketone, greater than 20 cast otherwise negative. * Protein/creatinine ratio 0.52 * Nephrology following (3) Acute hypoxic respiratory failure: Code(s): J96.01 - Acute respiratory failure with hypoxia Status: Acute Assessment and Plan: * Chest x-ray showing mild pulmonary edema in the lower lungs, right greater than left * Echo from 08/10/23 was reviewed which showed normal LV systolic function with an estimated EF of 60-65% grade 1 diastolic dysfunction, moderate to severe aortic valve stenosis, moderate to severe aortic valve sclerosis * Chlorthalidone and Lasix are both on hold due to GABRIELA superimposed on chronic kidney disease * ApneaLink was obtained which did not show any apneas however showed greater than 20 minutes of saturation being less than 88%, 30 minutes oxygen saturation less than 89%, oxygen saturation less than 90% 41 minutes on room air * Will repeat ApneaLink tonight on 2 L nasal cannula for nocturnal O2 needs * KHUSHBOO 25.4, AHI 0 (4) GABRIELA (acute kidney injury): Code(s): N17.9 - Acute kidney failure, unspecified Status: Acute Assessment and Plan: * Creatinine 2.0--continuing to improve was initially 3.3 on 03/27/2024 * Renal ultrasound normal * Protein/creatinine ratio 0.52 * Nephrology following * Continue to hold lisinopril, Lasix, chlorthalidone * Avoid nephrotoxic medication or tests with IV contrast * Renally adjust medication as needed (5) T2DM (type 2 diabetes mellitus): Code(s): E11.9 - Type 2 diabetes mellitus without complications Status: Acute Assessment and Plan: * Blood sugars ranging 148-258 * Hgb A1C 7.7 * Accu checks AC/HS * Moderate dose SSI ordered * Mealtime insulin 7 units t.i.d. with meals and at bedtime * Continue Lantus 28 units hepatitis * hypoglycemic protocol in place * Diabetic diet ordered (6) Hypomagnesemia: Code(s): E83.42 - Hypomagnesemia Status: Acute Assessment and Plan: * Magnesium 1.8 today * Will give 2 g of magnesium today Time Spent With Patient Time with patient: 25 - 35 minutes Subjective Date/time seen: 04/01/24 14:25 Interval history: Interval history: This is an 83-year-old male who presented to the hospital on 03/26/2024 with fever, chills, night sweats, poor appetite x1 week. Workup in the hospital included a chest x-ray which was negative. Chest CTA was negative for PE. Abdomen pelvis CT shown striated appearing nephrograms which can occur with acute pyelonephritis, no signs of obstruction. Renal ultrasound was negative. Initial labs showed a white blood cell count of 12.6, hemoglobin 13.3, sodium 136, bicarb 21, creatinine 2.4, EGFR 26, blood sugars ranging 140-171, magnesium 1.4, alk-phos 132. UA was obtained which showed cloudy urine appearance, 2+ urine protein, 1+ urine ketones, greater than 20 urine cast. Respiratory panel was negative for influenza a and B, RSV, COVID. Blood cultures were obtained and negative on final read. EKG showing sinus tachycardia with first-degree AV block, right bundle branch block with a rate of 110, QTC 447. Nephrology was consulted for acute kidney injury superimposed on chronic kidney disease likely due to use of SARAH-inhibitor and diuretic prior to admission. Patient had another chest x-ray done on 03/29/2024 which showed mild pulmonary edema and bilateral lower lungs right greater than left. Subjective: Patient denies any new complaints today. Labs and imaging reviewed. Review of Systems Review of Systems: All systems reviewed & are unremarkable except as noted in HPI and below Constitutional: Constitutional: Reports as per HPI and Reports no additional constitutional complaints Eyes: Eyes: Reports as per HPI and Reports no additional eye complaints ENT: Reports system reviewed and no additional complaints, except as documented and Reports as per HPI Cardiovascular: Cardiovascular: Reports as per HPI and Reports no additional cardiovascular complaints Respiratory: Respiratory: Reports as per HPI and Reports no additional respiratory complaints Gastrointestinal: Gastrointestinal: Reports as per HPI and Reports no additio nal gastrointestinal complaints Genitourinary: Genitourinary: Reports no additional male genitourinary complaints and Reports as per HPI Musculoskeletal: Musculoskeletal: Reports no additional musculoskeletal complaints and Reports as per HPI Integumentary/Breasts: Skin/Breast: Reports system reviewed and no additional complaints, except as docu and Reports as per HPI Neurologic: Reports system reviewed and no additional complaints, except as documented and Reports as per HPI Psychiatric: Psychiatric: Reports no additional psychiatric complaints and Reports as per HPI Exam Narrative: General: In no acute distress, well nourished Head: atraumatic, no encephalopathy Eyes: PERRLA, sclera clear ENT: moist mucous membranes, nasal passages clear Neck: supple, no JVD, no adenopathy, trachea midline Cardiac: Normal S1 and S2. No murmur, gallops or friction rubs, peripheral pulses intact. Respiratory: Lungs clear to auscultation, no adventitious lung sounds, currently on room air Gastrointestinal: soft, non-distended, non-tender, normoactive bowel sounds. : voiding without difficulty. Extremities: moves all extremities well, no edema Skin: clean, dry, intact. No wounds or lesions. Neuro: Alert and oriented x4, cranial nerves intact, no neuro deficits. Psych: normal mood, normal affect, interactive Objective Data Vital Signs Vital Signs: Vital Signs - 24 hr 03/31/24 14:27 03/31/24 20:00 03/31/24 20:00 Temperature Pulse Rate 73 71 Respiratory Rate 16 Blood Pressure Pulse Oximetry Oxygen Delivery Room Air 03/31/24 20:06 03/31/24 20:51 03/31/24 20:53 Temperature Pulse Rate 77 89 Respiratory Rate 20 Blood Pressure Pulse Oximetry 95 Oxygen Delivery Room Air 03/31/24 20:59 03/31/24 21:03 04/01/24 00:00 Temperature 98.6 F Pulse Rate 82 76 69 Respiratory Rate 20 18 Blood Pressure 129/86 Pulse Oximetry 97 Oxygen Delivery 04/01/24 04:00 04/01/24 06:00 04/01/24 07:19 Temperature 97.5 F L Pulse Rate 68 69 58 L Respiratory Rate 18 20 Blood Pressure 160/88 H Pulse Oximetry 97 Oxygen Delivery 04/01/24 07:19 04/01/24 07:29 04/01/24 08:00 Temperature Pulse Rate 67 85 Respiratory Rate 20 Blood Pressure Pulse Oximetry 94 Oxygen Delivery Room Air 04/01/24 08:00 04/01/24 09:42 04/01/24 13:41 Temperature Pulse Rate 70 70 Respiratory Rate 20 Blood Pressure Pulse Oximetry Oxygen Delivery Room Air 04/01/24 13:50 Temperature Pulse Rate 65 Respiratory Rate 20 Blood Pressure Pulse Oximetry Oxygen Delivery Intake/Output Intake/Output: Intake & Output 03/29/24 03/30/24 03/31/24 04/01/24 23:59 23:59 23:59 23:59 Intake Total 1096 1398 3700 1520 Output Total 483 829 5554 Balance 951 054 9248 1520 Meds/Results Medications: Active Medications Generic Name Dose Route Start Last Admin Trade Name Freq PRN Reason Stop Dose Admin Acetaminophen 1,000 mg 03/31/24 17:01 Acetaminophen 500 Mg Tablet PO TID PRN Pain Rated 1-3 Albuterol 2 puff 03/31/24 17:01 Albuterol Sulfate (*Sp) Aerosol 1 Puff INHALATION QID PRN shortness of breath or wheezing Albuterol/Ipratropium 3 ml 03/27/24 00:03 04/01/24 13:41 Ipratropium 0.5 Mg/Albuterol Sulfate 2.5 Mg Ampul.Neb 3 Ml INHALATION 3 ml Q6HRT PJ Administration Amoxicillin/Clavulanate Potassium 1 tablet 03/31/24 12:00 04/01/24 09:42 Amoxicillin/Clavulanate K 500-125 Mg Tab PO 04/01/24 21:01 1 tablet Q12HR PJ Administration Carvedilol 12.5 mg 03/26/24 09:00 04/01/24 09:42 Carvedilol 12.5 Mg Tablet PO 12.5 mg Q12HR PJ Administration Dorzolamide/Timolol 1 drop 03/26/24 22:25 04/01/24 09:42 Dorzolamide/Timolol Ophth Sarah 10 Ml Bottle EACH EYE 1 drop Q12HR PJ Administration Enoxaparin Sodium 30 mg 03/28/24 09:00 04/01/24 09:52 Enoxaparin 30 Mg/0.3 Ml Syringe SUB-Q Not Given DAILY [facility] Insulin Aspart 7 units 03/27/24 17:00 04/01/24 09:45 Insulin Aspart (*Bkc) 100 Units/Ml SUB-Q Not Given TIDWM PJ Insulin Glargine 28 units 03/31/24 21:00 03/31/24 20:06 Insulin Glargine (*Bkc) 100 Units/Ml SUB-Q 28 units QHS PJ Administration Non-Formulary Medication 1,000 mg 03/27/24 21:00 03/31/24 22:44 Abiraterone PO 04/26/24 20:59 1,000 mg HS PJ Administration Oxycodone HCl 5 mg 03/26/24 22:22 Oxycodone Hcl (*Crx) 5 Mg Tab Ir PO Q6H PRN pain Pantoprazole Sodium 40 mg 03/27/24 09:00 04/01/24 09:41 Pantoprazole 40 Mg Tablet PO 40 mg DAILY PJ Administration Polyethylene Glycol 17 gm 03/30/24 09:55 04/01/24 09:52 Polyethylene Glycol 3350 17 Gm Powd.Pack PO Not Given QAM PJ Prednisone 5 mg 03/26/24 22:25 04/01/24 09:42 Prednisone 5 Mg Tablet PO 5 mg Q12HR PJ Administration Radiology Results: ITS Impressions Chest CTA 03/26/24 15:51 IMPRESSION: Motion limited examination. Suboptimal visualization of the bilateral lower lobe segmental and subsegmental arteries as well as subsegmental arteries in the lingula and right middle lobe. As No CT evidence of acute pulmonary embolus in the adequately visualized pulmonary arteries. No acute process detected in the chest. Abdomen/Pelvis CT 03/26/24 17:24 IMPRESSION: Striated appearing nephrograms which can occur with acute pyelonephritis, acute tubular necrosis, and hypotension. No signs of obstruction or medullary sponge kidney. Renal Ultrasound 03/28/24 13:46 IMPRESSION: No definite abnormality seen. Chest X-Ray 03/29/24 17:14 IMPRESSION: 1. Mild pulmonary edema in the lower lungs, right greater left. Labs Labs: Laboratory Results - last 24 hr 03/31/24 03/31/24 04/01/24 16:24 19:44 05:47 WBC RBC Hgb Hct MCV MCH MCHC RDW Plt Count MPV Sodium Potassium Chloride Carbon Dioxide Anion Gap BUN Creatinine Estim Creat Clear Calc Estimated GFR Glucose POC Capillary Glucose 189 H 258 H 66 Calcium Phosphorus Magnesium Total Bilirubin AST ALT Alkaline Phosphatase Total Protein Albumin 04/01/24 04/01/24 04/01/24 06:12 06:27 07:50 WBC 10.0 RBC 4.23 L Hgb 11.8 L Hct 38.1 L MCV 90.1 MCH 27.9 MCHC 31.0 L RDW 13.7 Plt Count 410 H MPV 9.6 Sodium 140 Potassium 4.3 Chloride 103 Carbon Dioxide 32 H Anion Gap 5 BUN 31 H Creatinine 2.00 H Estim Creat Clear Calc 27 Estimated GFR 32 L Glucose 85 POC Capillary Glucose 110 H 177 H Calcium 9.2 Phosphorus 3.9 Magnesium 1.8 Total Bilirubin 0.5 AST 19 ALT 16 Alkaline Phosphatase 103 Total Protein 7.0 Albumin 3.7 04/01/24 11:20 WBC RBC Hgb Hct MCV MCH MCHC RDW Plt Count MPV Sodium Potassium Chloride Carbon Dioxide Anion Gap BUN Creatinine Estim Creat Clear Calc Estimated GFR Glucose POC Capillary Glucose 210 H Calcium Phosphorus Magnesium Total Bilirubin AST ALT Alkaline Phosphatase Total Protein Albumin Quality VTE Prophylaxis VTE prophylaxis: pharmacologic ordered
[2024-04-01 16:53] LABS: Glucose Point of Care 138 mg/dl (65-105)
[2024-04-01] MEDS: MAGNESIUM SULF 2 GM/WATER 50ML 2 GM/50 ML BAG IVPB (18:26)
[2024-04-01] MEDS: INSULIN ASPART (*BKC) 100 UNITS/ML 7 UNITS SUB-Q (18:27)
[2024-04-01] MEDS: [UNRECOGNIZED DRUG - OTHER] PO (20:34)
[2024-04-01] MEDS: ABIRATERONE 250 MG PO (20:34)
[2024-04-01 20:42] LABS: Glucose Point of Care 199 mg/dl (65-105)
[2024-04-02] VITALS (12 sets, daily range): BP systolic 118–184; BP diastolic 53–80; PULSE 62–84; RESP 18; TEMP 36.2–36.3; O2SAT 97–98
--- NOTE | 2024-04-02 02:38 | PCRCNOTE ---
Patient is on an overnight oximetry study, therefore 0200 breathing tx was not administered. See next scheduled administration.
[2024-04-02 06:33] LABS: Hematocrit 35.4 % (42.0-52.0); Hemoglobin 10.9 g/dL (14.0-18.0); Mean Corpuscular HGB Conc 30.8 g/dl (32-36); Mean Corpuscular Hemoglobin 28.2 pg (26-34); Mean Corpuscular Volume 91.5 fl (80-100); Mean Platelet Volume 9.8 fl (7.4-10.4); Platelet Count Result 438 k/mm3 (150-375); Red Blood Count 3.87 M/mm3 (4.6-6.20); Red Cell Distribution Width 13.6 % (11.5-14.5); White Blood Count 11.1 K/mm3 (4.5-10.0)
[2024-04-02 06:51] LABS: Alanine Aminotransferase 15 U/L (6-50); Albumin Level 3.4 g/dL (3.5-5.1); Alkaline Phosphatase 103 U/L (38-126); Anion Gap 0 mmol/L (4-12); Aspartate Amino Transferase 16 U/L (17-59); Bilirubin,Total 0.5 mg/dL (0.2-1.3); Blood Urea Nitrogen 33 mg/dL (9-20); Calcium 8.7 mg/dL (8.4-10.2); Carbon Dioxide 32 mmol/L (22-30); Chloride 103 mmol/L (98-107); Estimated CRCL calculation 26 ml/min; Estimated Glomerular Filt Rate 30; Glucose 114 mg/dL (65-110); Phosphorus 4.1 mg/dL (2.5-4.5); Potassium 4.3 mmol/L (3.4-5.0); Sodium 135 mmol/L (137-145)
[2024-04-02] MEDS: IPRATROPIUM 0.5 MG/ALBUTEROL SULFATE 2.5 MG AMPUL.NEB 3 ML INHALATION ×2 (07:25→12:50)
[2024-04-02 08:14] LABS: Glucose Point of Care 117 mg/dl (65-105)
--- NOTE | 2024-04-02 09:12 | PM.DS ---
DS: Admitting Diagnosis Discharge Date 04/02/24 Admitting Diagnosis pyelonephritis acute hypoxic respiratory failure diarrhea febrile illness sirs type 2 diabetes mellitus hypomagnesemia GABRIELA DS: Discharge Diagnosis Discharge Diagnosis (1) Sepsis: Code(s): A41.9 - Sepsis, unspecified organism Status: Acute (2) Pyelonephritis: Code(s): N12 - Tubulo-interstitial nephritis, not specified as acute or chronic Status: Acute (3) Acute hypoxic respiratory failure: Code(s): J96.01 - Acute respiratory failure with hypoxia Status: Acute (4) GABRIELA (acute kidney injury): Code(s): N17.9 - Acute kidney failure, unspecified Status: Acute (5) T2DM (type 2 diabetes mellitus): Code(s): E11.9 - Type 2 diabetes mellitus without complications Status: Acute (6) Hypomagnesemia: Code(s): E83.42 - Hypomagnesemia Status: Acute DS: Summary Hospital Course Reason for hospitalization: pyelonephritis acute hypoxic respiratory failure diarrhea febrile illness sirs type 2 diabetes mellitus hypomagnesemia GABRIELA Hospital Course: This is an 83-year-old male who presented to the hospital on 03/26/2024 with fever, chills, night sweats, poor appetite x1 week. Workup in the hospital included a chest x-ray which was negative. Chest CTA was negative for PE. Abdomen pelvis CT shown striated appearing nephrograms which can occur with acute pyelonephritis, no signs of obstruction. Renal ultrasound was negative. Initial labs showed a white blood cell count of 12.6, hemoglobin 13.3, sodium 136, bicarb 21, creatinine 2.4, EGFR 26, blood sugars ranging 140-171, magnesium 1.4, alk-phos 132. UA was obtained which showed cloudy urine appearance, 2+ urine protein, 1+ urine ketones, greater than 20 urine cast. Respiratory panel was negative for influenza a and B, RSV, COVID. Blood cultures were obtained and negative on final read. EKG showing sinus tachycardia with first-degree AV block, right bundle branch block with a rate of 110, QTC 447. Nephrology was consulted for acute kidney injury superimposed on chronic kidney disease likely due to use of SARAH-inhibitor and diuretic prior to admission. Patient had another chest x-ray done on 03/29/2024 which showed mild pulmonary edema and bilateral lower lungs right greater than left. patient is now back down to his baseline creatinine. He was restarted on his medications. His acute kidney injury has resolved. We will go ahead and give him 3 more days worth of Augmentin as his white count bumped up to 11.1. He is not symptomatic however was concerned. He will need to follow up with Nephrology in 2 weeks and his primary in 1 week. He is stable for discharge at this time. final diagnosis: sepsis, pyelonephritis, acute hypoxic respiratory failure, acute kidney injury, hypomagnesemia Status at Discharge Cognitive/behavioral status at discharge: Alert and oriented x3 Functional status at discharge: independent ambulation Overall status at discharge: patient is progressing back to baseline Time Spent with Patient Time attestation: Total time spent providing and/or coordinating discharge services: Time spent: Greater than 30 minutes Exam Narrative: General: In no acute distress, well nourished Cardiac: Normal S1 and S2. No murmur, gallops or friction rubs, peripheral pulses intact. Respiratory: Lungs clear to auscultation, no adventitious lung sounds, currently on room air Gastrointestinal: soft, non-distended, non-tender, normoactive bowel sounds. Neuro: Alert and oriented x4 DS: Data Data Completed and Pending Completed studies during hospitalization: chest x-ray x2 chest CTA abdomen/pelvis CT renal ultrasound Pending studies at discharge: none Labs on day of discharge: Labs from last 24 hours 04/02/24 04/02/24 04/01/24 07:55 06:09 20:06 WBC 11.1 H RBC 3.87 L Hgb 10.9 L Hct 35.4 L MCV 91.5 MCH 28.2 MCHC 30.8 L RDW 13.6 Plt Count 438 H MPV 9.8 Sodium 135 L Potassium 4.3 Chloride 103 Carbon Dioxide 32 H Anion Gap 0 L BUN 33 H Creatinine 2.10 H Estim Creat Clear Calc 26 Estimated GFR 30 L Glucose 114 H POC Capillary Glucose 117 H 199 H Calcium 8.7 Phosphorus 4.1 Total Bilirubin 0.5 AST 16 L ALT 15 Alkaline Phosphatase 103 Total Protein 6.0 L Albumin 3.4 L 04/01/24 04/01/24 16:51 11:20 WBC RBC Hgb Hct MCV MCH MCHC RDW Plt Count MPV Sodium Potassium Chloride Carbon Dioxide Anion Gap BUN Creatinine Estim Creat Clear Calc Estimated GFR Glucose POC Capillary Glucose 138 H 210 H Calcium Phosphorus Total Bilirubin AST ALT Alkaline Phosphatase Total Protein Albumin Procedures/Treatments: none Discharge Plan Discharge Attending physician on discharge: Robinson Jama Consulting providers: Marilu Rdz; Patricia Tate V.; Melissa Medina; Mabel Munguia; Comfort Leon; Ritesh Faulkner; Donnie Ritchie; Eduar Ricardo; Sav Cardona; Oj Clay Discharging Clinician: Sharonda Cowart Anticipated Discharge Date/Time: 04/02/24 09:08 Patient Disposition: Home Health Service Activity: as tolerated Diet: as tolerated Discharge Instructions: Per Care Coordination. Patient to have [facility] for RN/PT/OT eval and treat. [phone]. They will contact patient to schedule first visit after holiday. Finish all your antibiotics as directed. Follow up with your primary care doctor in 1 week You can resume your home medications as you normally do Your acute kidney injury is now resolved and creatinine is back down to baseline. Follow up with Nephrology in 2 weeks. Patient Instructions: Antibiotic Form, Pain Management (DC), Kidney Infection (DC), Sepsis (DC) Patient Language: Yakut Stand Alone Forms: General Discharge Information Follow-up/Referrals: Jeane,Kraig Fernandez MD [Primary Care Provider] - 1 Week Marilu Rdz MD [Physician] - 2 Weeks Discharge Medications: New amoxicillin-pot clavulanate 875-125 mg tablet 1 tablet PO Q12H Qty: 6 0RF Continued amlodipine [Norvasc] 2.5 mg tablet 2.5 mg PO DAILY MDD 2.5bg per 4ozen [id number] pantoprazole 40 mg tablet,delayed release (DR/EC) 40 mg PO DAILY oxycodone 5 mg tablet 5 mg PO PRN PRN (Reason: Pain) insulin aspart U-100 [Novolog FlexPen U-100 Insulin] 100 unit/mL (3 mL) insulin pen 8 unit SUBCUT TID Protocol: Insulin Corrective Low-Dose Condition: glucose < 70 mg/dl Dose/Route: Follow Hypoglycemia Order Condition: glucose 70-200 mg/dl Dose/Route: No additional insulin Condition: glucose 201-250 mg/dl Dose/Route: 2 units sub-Q Condition: glucose 251-300 mg/dl Dose/Route: 3 units sub-Q Condition: glucose 301-350 mg/dl Dose/Route: 4 units sub-Q Condition: glucose 351-400 mg/dl Dose/Route: 5 units sub-Q Condition: glucose > 400 mg/dl Dose/Route: Call MD Protocol Text: *No Correction Dose at Bedtime* Rx Instructions: Pt states he takes for glucose level 175 or higher. insulin glargine [Lantus Solostar U-100 Insulin] 100 unit/mL (3 mL) insulin pen 28 unit subcut QHS Rx Instructions: Pt states he holds medication if glucose levels under 140. albuterol sulfate 90 mcg/actuation HFA aerosol inhaler 2 puff inhalation QID PRN (Reason: shortness of breath or wheezing) Qty: 8.5 2RF acetaminophen 500 mg tablet 1,000 mg PO TID PRN (Reason: pain) 7 Days Qty: 42 0RF albuterol sulfate [Ventolin HFA] 90 mcg/actuation HFA aerosol inhaler 1 inh inhalation QID Qty: 8.5 0RF abiraterone 250 mg tablet 1,000 mg PO HS carvedilol 12.5 mg tablet 12.5 mg PO Q12H lisinopril 20 mg tablet 40 mg PO DAILY chlorthalidone 25 mg tablet 25 mg PO DAILY dorzolamide-timolol 22.3-6.8 mg/mL drops 1 drp EACH EYE Q12H fluoride (sodium) [PreviDent 5000 Plus] 1.1 % cream 1 applic dental Q24H oxycodone 5 mg tablet 5 mg PO Q6H PRN (Reason: pain) prednisone 5 mg tablet 5 mg PO Q12H pravastatin 20 mg tablet 20 mg PO DAILY Januvia 25 mg tablet 25 mg PO DAILY insulin aspart U-100 [Novolog FlexPen U-100 Insulin] 100 unit/mL (3 mL) insulin pen 1 sliding scale dose SUBCUT TID insulin glargine [Lantus Solostar U-100 Insulin] 100 unit/mL (3 mL) insulin pen 28 unit SUBCUT QPM Discontinued carvedilol 12.5 mg tablet 25 mg PO BID pravastatin 20 mg tablet 20 mg PO DAILY Januvia 25 mg tablet 25 mg PO DAILY pantoprazole 40 mg tablet,delayed release (DR/EC) 40 mg PO DAILY lisinopril 40 mg tablet 40 mg PO DAILY Eliquis 2.5 mg Tablet 2.5 mg PO Q12HR Qty: 60 0RF Date of admission: 03/28/24 14:31 Primary Care Provider: Jeane,Kraig Fernandez Admitting Provider: Jack Miller Attending physician on admission: Sharonda Cowart Condition: Improved Quality VTE Prophylaxis VTE prophylaxis: pharmacologic ordered Hospitalist MIPS Heart Failure (Exclusion) Patient has history of Heart Transplant or Left Ventricular Assistive Device?: No IF YES, STOP HERE Heart Failure (Qualifier) Patient has current or prior documentation of LVEF less than or equal to 40%, or mod/servere depressed LVSF?: No IF NO, STOP HERE
[2024-04-02] MEDS: amLODIPine BESYLATE 2.5 MG TABLET PO (09:22)
[2024-04-02] MEDS: carvediloL 12.5 MG TABLET PO (09:22)
[2024-04-02] MEDS: ENOXAPARIN 30 MG/0.3 ML SYRINGE SUB-Q (09:22)
[2024-04-02] MEDS: PRAVASTATIN SODIUM 20 MG TABLET PO (09:22)
[2024-04-02] MEDS: predniSONE 5 MG TABLET PO (09:22)
[2024-04-02] MEDS: PANTOPRAZOLE 40 MG TABLET PO (09:23)
[2024-04-02] MEDS: DORZOLAMIDE/TIMOLOL OPHTH SOL 10 ML BOTTLE 1 DROP EACH EYE (09:23)
[2024-04-02] MEDS: polyethylene glycoL 3350 17 GM POWD.PACK PO (09:23)
--- NOTE | 2024-04-02 10:05 | P.PNNP_ITS ---
Progress Note: A&P Assessment and Plan (1) GABRIELA (acute kidney injury): Code(s): N17.9 - Acute kidney failure, unspecified Status: Acute Assessment and Plan: * GABRIELA on CKD * close to baseline on admission * deterioration noted 24 hours later (from 2.4 --> 3.3mg/dl on 03/27/24) * Creatinine has improved to 2.1. * may be lower than baseline due to hospitalization/sedentary state/lower creatinecreatinine generation * suspect due to several issues: * prerenal factors (nausea/vomiting/diarrhea on admission) * relative hypotension (210 systolic in ER but dropped to 80s) * infection/early sepsis (pyelonephritis) * contrast exposure (CTA of chest on 03/26) * SARAH-I + diuretic use prior to admission * evaluation to date: * renal ultrasound normal * urine eosinophil negative * urine electrolytes prerenal (by FeUrea) * UA not indicative of infection * moderate proteinuria * holding lisinopril and diuretics at this time * Blood pressure destin again so he was placed on amlodipine 2.5 daily. * If this does not work I think it be okay for him to go back on lisinopril as well * Home any time from the renal standpoint. (2) Stage 3b chronic kidney disease: Code(s): N18.32 - Chronic kidney disease, stage 3b Status: Acute Assessment and Plan: * baseline creatinine seems to run ~ 1.9 - 2.3mg/dl since 2021 * this causes him to fluctuate between CKD stage 3B and stage 4 * last outpatient creatinine about in January 2024 was 1.93mg/dl * CKD likely secondary to HTN, diabetes, vascular disease, and age-related change * follows with [facility] (Dr. Lin Guerrero) (3) Pyelonephritis: Code(s): N12 - Tubulo-interstitial nephritis, not specified as acute or chronic Status: Acute Assessment and Plan: * suggestive by admission CT scan * follow culture data - negative to date * on unasyn * continue supportive therapy (4) Shortness of breath: Code(s): R06.02 - Shortness of breath Status: Acute Assessment and Plan: * etiology? * imaging noted: * CTA chest negative for PE or other acute pathology * CXR negative. * due to reactive airway disease versus known history of COPD * oxygenation okay * Symptoms improved and patient is on room air (5) Anemia: Code(s): D64.9 - Anemia, unspecified Status: Acute Assessment and Plan: * presumably related to GABRIELA and acute illness * Hemoglobin still above 10. * No need for AHSAN (6) Hypertension: Code(s): I10 - Essential (primary) hypertension Status: Chronic Assessment and Plan: * BP up and down, ranging 120s to 160s last three readings. * Now on amlodipine 2.5mg daily PE * restart the sarah inh if if the amlodipine alone does not work. (7) Type 2 diabetes mellitus: Code(s): E11.9 - Type 2 diabetes mellitus without complications Status: Chronic Assessment and Plan: * follow accu-cheks * glycemic control per hospitalists Subjective Date/time seen: 04/02/24 10:05 Interval history: Patient sitting in semi-Caballero's position eating breakfast. No chest pain or shortness of breath Exam Narrative: WDWN in NAD skin no rash head ncat lungs clear cor reg no rub abd BS+ nontender and soft ext no edema. Const: General: comfortable and no acute distress Resp: Auscultation: wheezes expiratory wheezes and diminished lung sounds Cardio: Rate: regular rate Rhythm: regular rhythm Other: Telemetry SR 66 GI: Auscultation: normal bowel sounds Skin: General skin exam: no rashes or lesions noted Neuro: Speech: normal speech Extrem: General: no pedal edema Psych: Mental Status: mental status grossly normal Affect: normal affect Objective Data Vital Signs Vital Signs: Vital Signs - 24 hr 04/01/24 12:02 04/01/24 13:41 04/01/24 13:50 Temperature Pulse Rate 89 70 65 Respiratory Rate 20 20 Blood Pressure Pulse Oximetry Oxygen Delivery 04/01/24 14:00 04/01/24 16:02 04/01/24 20:00 Temperature 97.6 F Pulse Rate 78 76 Respiratory Rate 16 Blood Pressure 146/85 H Pulse Oximetry 97 Oxygen Delivery Room Air 04/01/24 20:00 04/01/24 20:13 04/01/24 20:15 Temperature Pulse Rate 83 70 Respiratory Rate 20 Blood Pressure Pulse Oximetry 96 Oxygen Delivery Room Air 04/01/24 20:20 04/01/24 20:33 04/01/24 21:17 Temperature 97.2 F L Pulse Rate 77 90 86 Respiratory Rate 20 18 Blood Pressure 127/97 H Pulse Oximetry 97 Oxygen Delivery 04/02/24 00:00 04/02/24 04:00 04/02/24 06:00 Temperature 97.3 F L Pulse Rate 62 76 63 Respiratory Rate 18 Blood Pressure 184/80 H Pulse Oximetry 98 Oxygen Delivery 04/02/24 07:25 04/02/24 07:25 04/02/24 07:35 Temperature Pulse Rate 67 67 70 Respiratory Rate 18 18 18 Blood Pressure Pulse Oximetry 97 Oxygen Delivery Room Air 04/02/24 09:22 Temperature Pulse Rate 72 Respiratory Rate Blood Pressure Pulse Oximetry Oxygen Delivery Intake/Output Intake/Output: Intake & Output 03/30/24 03/31/24 04/01/24 04/02/24 23:59 23:59 23:59 23:59 Intake Total 1398 3700 2497 400 Output Total 600 1725 Balance 798 1975 2497 400 Meds/Results Medications: Active Medications Generic Name Dose Route Start Last Admin Trade Name Freq PRN Reason Stop Dose Admin Acetaminophen 1,000 mg 03/31/24 17:01 Acetaminophen 500 Mg Tablet PO TID PRN Pain Rated 1-3 Albuterol 2 puff 03/31/24 17:01 Albuterol Sulfate (*Sp) Aerosol 1 Puff INHALATION QID PRN shortness of breath or wheezing Albuterol/Ipratropium 3 ml 03/27/24 00:03 04/02/24 07:25 Ipratropium 0.5 Mg/Albuterol Sulfate 2.5 Mg Ampul.Neb 3 Ml INHALATION 3 ml Q6HRT PJ Administration Amlodipine Besylate 2.5 mg 04/02/24 09:00 04/02/24 09:22 Amlodipine Besylate 2.5 Mg Tablet PO 2.5 mg DAILY PJ Administration Carvedilol 12.5 mg 03/26/24 09:00 04/02/24 09:22 Carvedilol 12.5 Mg Tablet PO 12.5 mg Q12HR PJ Administration Dextrose 12.5 gm 04/01/24 14:54 Dextrose 50% 25 Gm/50 Ml Syringe IV PUSH PRN PRN Hypoglycemia Protocol Dorzolamide/Timolol 1 drop 03/26/24 22:25 04/02/24 09:23 Dorzolamide/Timolol Ophth Sarah 10 Ml Bottle EACH EYE 1 drop Q12HR PJ Administration Enoxaparin Sodium 30 mg 03/28/24 09:00 04/02/24 09:22 Enoxaparin 30 Mg/0.3 Ml Syringe SUB-Q 30 mg DAILY PJ Administration Glucagon 1 mg 04/01/24 14:54 Glucagon For Inj 1 Mg Vial IM PRN PRN Hypoglycemia Protocol Glucose 15 gm 04/01/24 14:54 Glucose Oral Gel 15 Gm Of Glucse In 37.5 Gm Tube PO PRN PRN Hypoglycemia Protocol Dextrose 1,000 mls @ 100 mls/hr 04/01/24 14:54 Dextrose 5% 1,000 Ml IVPB PRN PRN Hypoglycemia Protocol Insulin Aspart 7 units 03/27/24 17:00 04/02/24 08:20 Insulin Aspart (*Bkc) 100 Units/Ml SUB-Q Not Given TIDWM PJ Insulin Aspart 1 - 3 units 04/01/24 21:00 04/01/24 20:35 Insulin Aspart (*Bkc) 100 Units/Ml SUB-Q Not Given [facility] Protocol Insulin Aspart 3 - 6 units 04/01/24 17:00 04/02/24 08:21 Insulin Aspart (*Bkc) 100 Units/Ml SUB-Q Not Given TIDWM [facility] Protocol Insulin Glargine 28 units 03/31/24 21:00 04/01/24 20:35 Insulin Glargine (*Bkc) 100 Units/Ml SUB-Q Not Given QHS [facility] Non-Formulary Medication 1,000 mg 03/27/24 21:00 04/01/24 20:34 Abiraterone PO 04/26/24 20:59 1,000 mg HS PJ Administration Oxycodone HCl 5 mg 03/26/24 22:22 Oxycodone Hcl (*Crx) 5 Mg Tab Ir PO Q6H PRN pain Pantoprazole Sodium 40 mg 04/02/24 09:00 04/02/24 09:23 Pantoprazole 40 Mg Tablet PO 40 mg DAILY PJ Administration Polyethylene Glycol 17 gm 03/30/24 09:55 04/02/24 09:23 Polyethylene Glycol 3350 17 Gm Powd.Pack PO 17 gm QAM PJ Administration Pravastatin Sodium 20 mg 04/02/24 09:00 04/02/24 09:22 Pravastatin Sodium 20 Mg Tablet PO 20 mg DAILY PJ Administration Prednisone 5 mg 03/26/24 22:25 04/02/24 09:22 Prednisone 5 Mg Tablet PO 5 mg Q12HR PJ Administration Radiology Results: ITS Impressions Chest CTA 03/26/24 15:51 IMPRESSION: Motion limited examination. Suboptimal visualization of the bilateral lower lobe segmental and subsegmental arteries as well as subsegmental arteries in the lingula and right middle lobe. As No CT evidence of acute pulmonary embolus in the adequately visualized pulmonary arteries. No acute process detected in the chest. Abdomen/Pelvis CT 03/26/24 17:24 IMPRESSION: Striated appearing nephrograms which can occur with acute pyelonephritis, acute tubular necrosis, and hypotension. No signs of obstruction or medullary sponge kidney. Renal Ultrasound 03/28/24 13:46 IMPRESSION: No definite abnormality seen. Chest X-Ray 03/29/24 17:14 IMPRESSION: 1. Mild pulmonary edema in the lower lungs, right greater left. Labs Labs: Laboratory Results - last 24 hr 04/01/24 04/01/24 04/01/24 11:20 16:51 20:06 WBC RBC Hgb Hct MCV MCH MCHC RDW Plt Count MPV Sodium Potassium Chloride Carbon Dioxide Anion Gap BUN Creatinine Estim Creat Clear Calc Estimated GFR Glucose POC Capillary Glucose 210 H 138 H 199 H Calcium Phosphorus Total Bilirubin AST ALT Alkaline Phosphatase Total Protein Albumin 04/02/24 04/02/24 06:09 07:55 WBC 11.1 H RBC 3.87 L Hgb 10.9 L Hct 35.4 L MCV 91.5 MCH 28.2 MCHC 30.8 L RDW 13.6 Plt Count 438 H MPV 9.8 Sodium 135 L Potassium 4.3 Chloride 103 Carbon Dioxide 32 H Anion Gap 0 L BUN 33 H Creatinine 2.10 H Estim Creat Clear Calc 26 Estimated GFR 30 L Glucose 114 H POC Capillary Glucose 117 H Calcium 8.7 Phosphorus 4.1 Total Bilirubin 0.5 AST 16 L ALT 15 Alkaline Phosphatase 103 Total Protein 6.0 L Albumin 3.4 L
[2024-04-02 11:37] LABS: Glucose Point of Care 247 mg/dl (65-105)
[2024-04-02] MEDS: lisinopriL 20 MG TABLET 40 MG PO (12:49)
[2024-04-02] MEDS: INSULIN ASPART (*BKC) 100 UNITS/ML SUB-Q (12:51)
[2024-04-02] MEDS: INSULIN ASPART (*BKC) 100 UNITS/ML 7 UNITS SUB-Q (12:51)
--- NOTE | 2024-04-02 12:57 | PC.NURSE ---
RN spoke with Sharonda hospitalist and informed her that the pt has an at home regime and he only wanted me to give him 8 units of insulin because if we use the hospital protocol it drops his sugars way too low.
[2024-04-02 16:53] LABS: Glucose Point of Care 143 mg/dl (65-105)
== END 2024-04-02 16:25 | disposition home health service (06) | DRG 871 ==
LOC: ANHED 19:27 → ANH3MEDSUR 19:32
PROVIDERS: Emergency Medicine; Internal Medicine Nephrology; Admitting Provider Internal Medicine; Emergency Provider Emergency Medicine; PCP Internal Medicine; Visit Provider Nurse Practitioner Acute Care
DX: A41.9 Sepsis, unspecified organism (principal); J96.01 Acute respiratory failure with hypoxia; N12 Tubulo-interstitial nephritis, not specified as acute or chronic; N17.9 Acute kidney failure, unspecified; C79.51 Secondary malignant neoplasm of bone; D63.1 Anemia in chronic kidney disease; E83.42 Hypomagnesemia; E78.5 Hyperlipidemia, unspecified; E11.22 Type 2 diabetes mellitus with diabetic chronic kidney disease; F17.210 Nicotine dependence, cigarettes, uncomplicated; H40.9 Unspecified glaucoma; I44.0 Atrioventricular block, first degree; I12.9 Hypertensive chronic kidney disease with stage 1 through stage 4 chronic kidney disease, or unspecified chronic kidney disease; I48.0 Paroxysmal atrial fibrillation; K21.9 Gastro-esophageal reflux disease without esophagitis; N18.32 Chronic kidney disease, stage 3b; R19.7 Diarrhea, unspecified; Z20.822 Contact with and (suspected) exposure to COVID-19; Z79.4 Long term (current) use of insulin; Z79.84 Long term (current) use of oral hypoglycemic drugs; Z92.3 Personal history of irradiation; Z92.21 Personal history of antineoplastic chemotherapy; Z85.46 Personal history of malignant neoplasm of prostate; Z90.79 Acquired absence of other genital organ(s); Z90.49 Acquired absence of other specified parts of digestive tract
CPT/HCPCS: 36415; 71045; 71046; 71275; 74176; 76775; 80048; 80053; 80202; 81001; 81050; 82565; 82570; 82948; 83605; 83690; 83735; 84100; 84156; 84300; 84540; 85025; 85027; 85999; 87040; 87637; 93005; 94640; 94762; 96361; 96365; 96366; 96367; 96372; 96375; 96376; 99285; A9270; G0378; J0692; J0696; J1650; J1815; J2405; J3370; J3475; J7030; J7512; Q9967

== ENCOUNTER 2024-07-01 08:26 | Emergency (ER) | payer MEDICARE, SELFPAY ==
[2024-07-01] VITALS (11 sets, daily range): BP systolic 96–140; BP diastolic 41–86; PULSE 70–83; RESP 18–20; TEMP 37.1; O2SAT 92–97
--- NOTE | ~2024-07-01 | XR_ITS ---
EXAMINATION: XR chest 2V 07/01/2024 09:14 INDICATION: Shortness of breath PROCEDURE: 2 view chest COMPARISON: Comparison to multiple prior studies sequentially, with oldest reviewed study dated 08/02. FINDINGS: The lungs are clear. The lungs are hyperinflated which is consistent with, but not diagnost ic of chronic obstructive pulmonary disease. The cardiomediastinal silhouette is within normal limit s. There are no pleural effusions. There is no pneumothorax suspected. IMPRESSION: 1: NO ACUTE CARDIOPULMONARY DISEASE. Reviewed, dictated and finalized at location B.
--- NOTE | 2024-07-01 08:29 | ECG_ITS ---
Test Date: 2024-07-01 08:52:18 Measurements Intervals [place] Rate: 75 P: 0 ND: 0 QRS: 7 QRSD: 92 T: 69 QT: 362 QTc: 407 Interpretive Statements ATRIAL FIBRILLATION LOW QRS VOLTAGE IN EXTREMITY LEADS [QRS DEFLECTION < 0.5 mV IN LIMB LEADS] MINIMAL ST DEPRESSION [0.025+ mV ST DEPRESSION] ABNORMAL RHYTHM ECG Compared to ECG 03/26/2024 12:55:31 Sinus tachycardia no longer present First degree AV block no longer present Right bundle-branch block no longer present Electronically Signed On 07-01-2024 17:36:34 CDT by Mian Bill M.D.
[2024-07-01 08:50] LABS: Basophils Absolute Auto 0.1 K/mm3 (0.0-0.1); Basophils Percent Auto 0.5 % (0.2-1.2); Eosinophils Absolute Auto 0.2 K/mm3 (0-0.3); Eosinophils Percent Auto 1.8 % (0-4.4); Hematocrit 41.1 % (42.0-52.0); Immature Granulocyte Absolute 0.12 K/mm3 (0.00-0.031); Immature Granulocyte Percent A 1.1 % (0-0.5); Lymphocytes Absolute Auto 1.49 K/mm3 (0.9-3.2); Lymphocytes Percent Auto 13.7 % (18.3-44.2); Mean Corpuscular HGB Conc 31.6 g/dl (32-36); Mean Corpuscular Hemoglobin 27.9 pg (26-34); Mean Corpuscular Volume 88.2 fl (80-100); Mean Platelet Volume 9.4 fl (7.4-10.4); Monocytes Absolute Auto 1.3 K/mm3 (0.1-0.6); Monocytes Percent Auto 11.5 % (2.6-8.5); Neutrophils Absolute Auto 7.7 K/mm3 (1.3-6.7); Neutrophils Percent Auto 71.4 % (45.5-73.1); Platelet Count Result 345 k/mm3 (150-375); Red Blood Count 4.66 M/mm3 (4.6-6.20); Red Cell Distribution Width 13.9 % (11.5-14.5); White Blood Count 10.8 K/mm3 (4.5-10.0)
[2024-07-01 09:00] LABS: Alanine Aminotransferase 15 U/L (6-50); Albumin Level 3.8 g/dL (3.5-5.1); Alkaline Phosphatase 119 U/L (38-126); Anion Gap 10 mmol/L (4-12); Aspartate Amino Transferase 19 U/L (17-59); Blood Urea Nitrogen 41 mg/dL (9-20); Carbon Dioxide 25 mmol/L (22-30); Chloride 101 mmol/L (98-107); Estimated CRCL calculation 21 ml/min; Estimated Glomerular Filt Rate 24; Glucose 162 mg/dL (65-110); Potassium 3.9 mmol/L (3.4-5.0); Sodium 136 mmol/L (137-145)
--- NOTE | 2024-07-01 09:04 | ED_ITS ---
HPI - General Adult General Chief complaint: Shortness of Breath/Dyspnea Stated complaint: SOB since last noc, nausea Time Seen by Provider: 07/01/24 08:42 History of Present Illness HPI narrative: 83-year-old male presents emergency department for evaluation for worsening shortness of breath. Patient does have a prior history COPD, AFib, high cholesterol, hypertension, diabetes. Patient denies any associated chest pain. At time of evaluation patient denies any current shortness of breath. Related Data Home Medications ?Medication ?Instructions ?Recorded ?Confirmed ?Last Taken ?Type amlodipine 2.5 mg tablet (Norvasc) 2.5 mg PO DAILY 06/19/22 03/31/24 Unknown History insulin aspart U-100 100 unit/mL 8 unit subcut TID 06/19/22 03/31/24 08/02/23 History (3 mL) subcutaneous pen (Novolog FlexPen U-100 Insulin aspart) insulin glargine 100 unit/mL (3 28 unit subcut QHS 06/19/22 03/31/24 08/02/23 History mL) subcutaneous pen (Lantus Solostar U-100 Insulin) oxycodone 5 mg tablet 5 mg PO PRN PRN Pain 06/19/22 03/31/24 Unknown History pantoprazole 40 mg tablet,delayed 40 mg PO DAILY 06/19/22 03/31/24 08/02/23 History release abiraterone 250 mg tablet 1,000 mg PO HS 03/26/24 03/26/24 Unknown History carvedilol 12.5 mg tablet 12.5 mg PO Q12H 03/26/24 03/26/24 Unknown History chlorthalidone 25 mg tablet 25 mg PO DAILY 03/26/24 03/26/24 Unknown History dorzolamide 22.3 mg-timolol 6.8 1 drp EACH EYE Q12H 03/26/24 03/26/24 Unknown History mg/mL eye drops fluoride (sodium) 1.1 % dental 1 applic dental Q24H 03/26/24 03/26/24 Unknown History cream (PreviDent 5000 Plus) insulin aspart U-100 100 unit/mL 1 sliding scale dose subcut TID 03/26/24 03/26/24 Unknown History (3 mL) subcutaneous pen (Novolog FlexPen U-100 Insulin aspart) insulin glargine 100 unit/mL (3 28 unit subcut QPM 03/26/24 03/26/24 Unknown History mL) subcutaneous pen (Lantus Solostar U-100 Insulin) lisinopril 20 mg tablet 40 mg PO DAILY 03/26/24 03/26/24 Unknown History oxycodone 5 mg tablet 5 mg PO Q6H PRN pain 03/26/24 03/26/24 Unknown History pravastatin 20 mg tablet 20 mg PO DAILY 03/26/24 03/26/24 Unknown History prednisone 5 mg tablet 5 mg PO Q12H 03/26/24 03/26/24 Unknown History sitagliptin phosphate 25 mg tablet 25 mg PO DAILY 03/26/24 03/26/24 Unknown History (Januvia) Allergies Allergy/AdvReac Type Severity Reaction Status Date / Time No Known Drug Allergies Allergy Unknown Other Verified 07/01/24 08:45 Review of Systems 2 Review of Systems: All systems reviewed & are unremarkable except as noted in HPI and below PMFSH Past Medical History Medical History (Updated 07/01/24 @ 11:14 by Chris Baird MD) Esophageal ulcer Chronic kidney disease, stage 3 Paroxysmal atrial fibrillation Gastroesophageal reflux disease 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 Hyperlipidemia Hypertension Type 2 diabetes mellitus Surgical History Surgical History (Updated 03/27/24 @ 09:32 by Niurka Crook) History of prostatectomy History of cholecystectomy Family History Family History (System 03/27/24 @ 09:32 by Niurka Crook) Mother Kidney failure Father Alzheimer's dementia Other Alzheimers disease Kidney disease Social History Social History (System 03/27/24 @ 09:32 by Niurka Crook) Years smoked: 65 Smoking status: Current every day smoker Second hand tobacco smoke exposure: Yes Alcohol intake: current Drinks per week: 4 Substance use: current Substance use type: marijuana Last use: 07/30/2023 Do You Feel Safe in your Home?: Yes Lack of Transportation: No Lack of Food: Never True Current Housing: I Have Housing Concerned About Future Housing: No Difficulty Paying Gas/Electric Bills: No Difficulty Paying for Meds: No Currently Unemployed: No Education: Master's Degree or Higher Difficulty w/ Childcare or Family Care: No Spiritual care concerns: No Exam 2 Narrative: APPEARANCE: Well appearing, no pain, no distress, well-nourished. HEAD: normocephalic, atraumatic. EYES: PERRLA/EOMI, conjunctivae clear. NOSE: Normal no drainage EARS:TMS clear with good light reflex. THROAT: Pharynx clear, no exudate. NECK: Supple. No adenopathy, no masses. RESPIRATORY: Airway patent, respirations nonlabored. Clear to auscultation bilaterally, no rales, rhonchi, wheezing. CARDIOVASCULAR: Regular rate and rhythm without murmurs rubs or gallops. ABDOMINAL: Soft, nontender, nondistended, normal bowel sounds MUSCULOSKELETAL: Moves all extremities. Strength/ROM intact, No edema, No calf tenderness. NEURO: Alert. Cranial nerves II through XII intact. Good gait. Good coordination SKIN: Warm, dry. Normal Color Course Vital Signs Vital signs: Vital Signs Pulse Rate 76 07/01/24 08:33 Respiratory Rate 19 07/01/24 08:33 Pulse Oximetry 96 07/01/24 08:33 Temperature 98.8 F 07/01/24 08:41 Pulse Rate 79 07/01/24 11:20 Respiratory Rate 20 07/01/24 11:20 Blood Pressure 140/86 07/01/24 11:20 Pulse Oximetry 92 07/01/24 11:20 Oxygen Delivery Room Air 07/01/24 08:45 Medical Decision Making [facility] Narrative Medical decision making narrative: 83-year-old male presents emergency department for evaluation for intermittent shortness of breath. Patient is currently afebrile with a leukocytosis of 10.8 hemoglobin of 13.0. Patient does have chronic kidney disease and his creatinine is similar to his baseline of 2.5. ProBNP is elevated at 18 30, this is not too far from his baseline. Patient was negative influenza RSV and for COVID. Chest x-ray shows no acute cardiopulmonary abnormality. EKG does show AFib that is rate controlled. Also similar to patient's baseline. Was able to ambulate at his baseline with no O2 requirement. Patient had no complaints with ambulation. Patient was treated with a single dose IV Lasix the right department encouraged close follow-up with his primary care physician. Patient was comfortable the plan for discharge and close follow-up. Differential Diagnosis Differential Diagnosis: COVID, RSV, influenza, pneumonia, COPD, CHF Vital Signs Vital Signs: Vital Signs Pulse Rate 76 07/01/24 08:33 Respiratory Rate 19 07/01/24 08:33 Pulse Oximetry 96 07/01/24 08:33 Temperature 98.8 F 07/01/24 08:41 Pulse Rate 79 07/01/24 11:20 Respiratory Rate 20 07/01/24 11:20 Blood Pressure 140/86 07/01/24 11:20 Pulse Oximetry 92 07/01/24 11:20 Oxygen Delivery Room Air 07/01/24 08:45 Lab Data Lab results reviewed: Yes I reviewed the patient's lab results. 07/01/24 08:40 07/01/24 08:40 Labs: Lab Results 07/01/24 07/01/24 Range/Units 08:40 08:53 WBC 10.8 H (4.5-10.0) K/mm3 RBC 4.66 (4.6-6.20) M/mm3 Hgb 13.0 L (14.0-18.0) g/dL Hct 41.1 L (42.0-52.0) % MCV 88.2 (80-100) fl MCH 27.9 (26-34) pg MCHC 31.6 L (32-36) g/dl RDW 13.9 (11.5-14.5) % Plt Count 345 (150-375) k/mm3 MPV 9.4 (7.4-10.4) fl Immature Gran % (Auto) 1.1 H (0-0.5) % Neut % (Auto) 71.4 (45.5-73.1) % Lymph % (Auto) 13.7 L (18.3-44.2) % [place] % (Auto) 11.5 H (2.6-8.5) % Eos % (Auto) 1.8 (0-4.4) % Baso % (Auto) 0.5 (0.2-1.2) % Lymph # (Auto) 1.49 (0.9-3.2) K/mm3 [place] # (Auto) 1.3 H (0.1-0.6) K/mm3 Eos # (Auto) 0.2 (0-0.3) K/mm3 Baso # (Auto) 0.1 (0.0-0.1) K/mm3 Abs Immat Gran (auto) 0.12 H (0.00-0.031) K/mm3 Absolute Neuts (auto) 7.7 H (1.3-6.7) K/mm3 Absolute Nucleated RBC 0.000 (0.0-0.012) K/mm3 Nucleated RBC % 0.0 (0.0-0.2) % Sodium 136 L (137-145) mmol/L Potassium 3.9 (3.4-5.0) mmol/L Chloride 101 (98-107) mmol/L Carbon Dioxide 25 (22-30) mmol/L Anion Gap 10 (4-12) mmol/L BUN 41 H (9-20) mg/dL Creatinine 2.55 H (0.7-1.3) mg/dL Estim Creat Clear Calc 21 ml/min Estimated GFR 24 L (59 - ) Glucose 162 H (65-110) mg/dL Calcium 9.0 (8.4-10.2) mg/dL Total Bilirubin 1.0 (0.2-1.3) mg/dL AST 19 (17-59) U/L ALT 15 (6-50) U/L Alkaline Phosphatase 119 (38-126) U/L NT-Pro-B Natriuret Pep 1830 H (19.9-100) pg/mL Total Protein 7.0 (6.3-8.2) g/dL Albumin 3.8 (3.5-5.1) g/dL Influenza A (RT-PCR) Negative (Negative) Influenza B (RT-PCR) Negative (Negative) RSV (RT-PCR) Negative (Negative) SARS-CoV-2 RNA (RT-PCR) Negative (Negative) Imaging Data Radiologist's impression: Impressions Chest X-Ray 07/01/24 09:15 IMPRESSION: 1: NO ACUTE CARDIOPULMONARY DISEASE. Discharge Plan Discharge Clinical Impression: Shortness of breath Patient Disposition: Home, Self-Care Condition: Stable Instructions: Antibiotic Form, Dyspnea (ED) Additional Instructions: Have close follow-up with your primary care physician for additional outpatient workup. If you have any worsening symptoms then please call or return to the emergency department. Patient Language: Austrian Prescriptions: No Action amlodipine [Norvasc] 2.5 mg tablet 2.5 mg PO DAILY MDD 2.5bg per 4ozen [id number] pantoprazole 40 mg tablet,delayed release (DR/EC) 40 mg PO DAILY oxycodone 5 mg tablet 5 mg PO PRN PRN (Reason: Pain) insulin aspart U-100 [Novolog FlexPen U-100 Insulin] 100 unit/mL (3 mL) insulin pen 8 unit SUBCUT TID Protocol: Insulin Corrective Low-Dose Condition: glucose < 70 mg/dl Dose/Route: Follow Hypoglycemia Order Condition: glucose 70-200 mg/dl Dose/Route: No additional insulin Condition: glucose 201-250 mg/dl Dose/Route: 2 units sub-Q Condition: glucose 251-300 mg/dl Dose/Route: 3 units sub-Q Condition: glucose 301-350 mg/dl Dose/Route: 4 units sub-Q Condition: glucose 351-400 mg/dl Dose/Route: 5 units sub-Q Condition: glucose > 400 mg/dl Dose/Route: Call MD Protocol Text: *No Correction Dose at Bedtime* Rx Instructions: Pt states he takes for glucose level 175 or higher. insulin glargine [Lantus Solostar U-100 Insulin] 100 unit/mL (3 mL) insulin pen 28 unit subcut QHS Rx Instructions: Pt states he holds medication if glucose levels under 140. albuterol sulfate 90 mcg/actuation HFA aerosol inhaler 2 puff inhalation QID PRN (Reason: shortness of breath or wheezing) Qty: 8.5 2RF acetaminophen 500 mg tablet 1,000 mg PO TID PRN (Reason: pain) 7 Days Qty: 42 0RF albuterol sulfate [Ventolin HFA] 90 mcg/actuation HFA aerosol inhaler 1 inh inhalation QID Qty: 8.5 0RF abiraterone 250 mg tablet 1,000 mg PO HS carvedilol 12.5 mg tablet 12.5 mg PO Q12H lisinopril 20 mg tablet 40 mg PO DAILY chlorthalidone 25 mg tablet 25 mg PO DAILY dorzolamide-timolol 22.3-6.8 mg/mL drops 1 drp EACH EYE Q12H fluoride (sodium) [PreviDent 5000 Plus] 1.1 % cream 1 applic dental Q24H oxycodone 5 mg tablet 5 mg PO Q6H PRN (Reason: pain) prednisone 5 mg tablet 5 mg PO Q12H pravastatin 20 mg tablet 20 mg PO DAILY Januvia 25 mg tablet 25 mg PO DAILY insulin aspart U-100 [Novolog FlexPen U-100 Insulin] 100 unit/mL (3 mL) insulin pen 1 sliding scale dose SUBCUT TID insulin glargine [Lantus Solostar U-100 Insulin] 100 unit/mL (3 mL) insulin pen 28 unit SUBCUT QPM amoxicillin-pot clavulanate 875-125 mg tablet 1 tablet PO Q12H Qty: 6 0RF Follow-up/Referrals: Jeane,Kraig Fernandez MD [Primary Care Provider] -
[2024-07-01 09:09] LABS: NT Pro B Type Natriuretic Pept 1830 pg/mL (19.9-100)
--- OUTSIDE RECORDS SUMMARY | 2024-07-01 09:24 | XMS_ITS ---
Author Organization [facility] Address [address] [place] [address] Care Team Providers Care Silver Spray Worker Name Role Phone Kraig Ching MD Primary Care Provider [phone] Gautam Cope MD Unavailable Tramaine Roe MD Unavailable [phone] Sukhwinder Uribe MD Unavailable [phone] Shay Guillermo MD Unavailable [phone] Marsha Landis RN Unavailable Unavailab Active Problems Problem Noted Date Diagnosed Date Statin myopathy 06/08/2024 Essential hypertension 05/30/2024 Type 2 diabetes mellitus wit h stage 3b chronic kidney disease, with long-term current use of insulin 05/30/2024 Assessment & Plan (06/08/2024 4:46 AM A R SPECIALIST): Continue current regimen.Limit nephrotoxins.Reviewed creatinine. Avoid NSAIDS. Age-related osteoporosis wit hout current pathological fracture 04/24/2024 Fatigue 10/05/2023 Assessment & Plan (01/10/2024 11:45 AM CDT): Symptoms are improved with lowering carvedilol. Assessment & Plan (10/05/2023 12:55 PM CDT): Order TSH,B12. Decrease carvedilol to 12.5 mg BID. Primary open angle glaucoma (POAG) of left eye, moderate stage 10/02/2023 Chronic heart failure with preserved ejection fr action 08/19/2023 Assessment & Plan (08/19/2023 3:08 PM [...] 05/19/2023 Hypertension, essential 03/08/2023 Assessment & Plan (06/08/2024 4:46 AM A R SPECIALIST): Hypertension is controlled. Continue current regimen. Assessment & Plan (10/05/2023 12:54 PM CDT): Hypertension is controlled. Decrease carvedilol to 12.5 mg. Assessment & Plan (03/08/2023 7:11 AM A R SPECIALIST): Hypertension is controlled. Continue current regimen. 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 Avoid NSAIDS. Assessment & Plan (10/05/2023 5:50 AM CDT): Continue current regimen.Limit nephrotoxins.Reviewed creatinine. Avoid NSAIDS. Assessment & Plan (03/08/2023 7:12 AM A R SPECIALIST): Continue current regimen.Limit nephrotoxins.Reviewed creatinine. Avoid NSAIDS. CKD (chronic kidney disease) 03/08/2022 Assessment & Plan (06/08/2024 4:45 AM A R SPECIALIST): Limit nephrotoxins. Monitor creatinine. Avoid NSAIDS.Follow with Nephrology. 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 Continue PPI. Assessment & Plan (08/18/2022 6:36 AM CDT): Reviewed dietary modifications. Continue PPI. Assessment & Plan (02/12/2022 6:03 AM CDT): Reviewed dietary modifications. Continue PPI. Assessment & Plan (04/08/2021 5:55 AM A R SPECIALIST): Reviewed dietary modifications. Continue PPI. Secondary hyperparathyroidism of renal origin Spinal stenosis of lumbar re gion with neurogenic claudication 09/09/2018 Sciatica, left side 09/09/2018 Chronic bilateral low back pain with bilateral s ciatica 09/09/2018 Assessment & Plan (03/08/2023 11:17 AM A R SPECIALIST): Continue oxycodone. Continue home PT exercises. Advised using a walker. Assessment & Plan (08/18/2022 11:47 AM CDT): Continue oxycodone. Continue home PT exercises. Advised using a walker. Assessment & Plan (02/12/2022 11:41 AM CDT): Continue oxycodone. Continue home PT exercises. A prescription for a walker. Assessment & Plan (04/08/2021 5:55 AM A R SPECIALIST): Continue oxycodone. Continue home PT exercises. Continue walker. Assessment & Plan (12/26/2020 10:48 AM CDT): Continue oxycodone. Script for walker. Assessment & Plan (09/26/2020 11:29 AM CDT): Continue ROM exercises and follow with Pain Management. Refill oxycodone as needed. Prostate cancer 09/06/2018 Assessment & Plan (06/08/2024 4:46 AM A R SPECIALIST): Follow with Oncology. Continue Zytiga. Assessment & Plan (01/10/2024 6:58 AM CDT): Follow with Oncology. Continue Zytiga. Assessment & Plan (10/05/2023 5:49 AM CDT): Follow with Oncology. Continue Zytiga. Assessment & Plan (12/14/2019 11:27 AM CDT): Follow with Oncology. Oxycodone for severe pain. SBO (small bowel obstruction) 07/15/2018 Assessment & Plan (07/15/2018 2:51 PM CDT): He improved with conservative treatment. Chronic diastolic heart failure 01/25/2018 Assessment & Plan (03/07/2018 6:54 AM A R SPECIALIST): Hypertension is controlled. Continue current regimen. CHF [...] creatinine. Assessment & Plan (04/08/2021 5:54 AM A R SPECIALIST): Hypertension is controlled. Continue current regimen.Limit nephrotoxins. [...] NSAIDS. Assessment & Plan (03/07/2018 6:55 AM A R SPECIALIST): Hypertension is controlled. Continue current regimen. Limit nephrotoxins. Monitor creatinine. Avoid NSAIDS. Assessment & Plan (11/25/2017 7:09 AM CDT): Limit nephrotoxins. Monitor creatinine. Avoid NSAIDS. Duodenal ulcer 11/25/2017 Assessment & Plan (11/25/2017 10:16 AM CDT): Reviewed GI note . Continue pantoprazole. Avoid NSAIDS. Refer for EGD. PAF (paroxysmal atrial fibrillation) 10/22/2017 Assessment & Plan (03/07/2018 6:54 AM A R SPECIALIST): Continue rate control. Continue anticoagualtion. Anticipate starting [...] NSAIDS. Assessment & Plan (03/07/2018 6:55 AM A R SPECIALIST): Limit nephrotoxins. Monitor creatinine. Avoid NSAIDS. Assessment [...] diet. Assessment & Plan (04/08/2021 10:17 AM A R SPECIALIST): Reviewed HgBA1C elevated at 10.6 on 04/01/21. [...] therapy. Assessment & Plan (03/07/2018 6:57 AM A R SPECIALIST): Continue pravastatin. He had myalgias on other [...] diet. Assessment & Plan (03/02/2017 6:53 AM A R SPECIALIST): Hypertension is controlled. Continue current regimen. Reviewed low sodium diet. Assessment & Plan (01/15/2017 6:44 AM CDT): Reviewed proper diet. Continue statin therapy. Hyperlipidemia 01/12/2012 Assessment & Plan (06/08/2024 4:46 AM A R SPECIALIST): Continue pravastatin. Order lipid panel at next visit. Statin myopathy. Assessment & Plan (10/05/2023 5:49 AM CDT): Continue pravastatin. Order lipid panel at next visit. Assessment & Plan (09/26/2020 10:47 AM CDT): Continue pravastatin. Order lipid panel. Assessment & Plan (12/14/2019 7:08 AM CDT): Reviewed LDL 145 on 12/07/19. Continue pravastatin. He is intolerant of high potency statins. Assessment & Plan (10/10/2019 11:35 AM CDT): Continue pravastatin order lipid panel. Current Treatment and Therapy Plans Abiraterone / PredniSONE 28 Day Cycles* [...] Medications Current Day (Day 1 , Cycle 26 - Planned for 07/18/2024) Next Day (Day 1, Cycle 27 - Planned for 10/10/2024) leuprolide (3 month) (ELIGARD)leuprolide (3 month) (LUPRON)leuprolide (ELIGARD) leuprolide (3 month) (ELIGARD) subcutaneous injection 22.5 mg leuprolide (3 month) (ELIGARD) subcutaneous injection 22.5 mg Zoledronic Acid (Reclast) Infusion* Plan Start Date:04/24/2024 Plan Provider:Daquan George MD Linked Problems Prostate cancer (HCC)Age-rel ated osteoporosis without current pathological fracture Treatment Medications No medications scheduled. Past Treatment and Therapy Plans No past plan information found. Lifetime Dose Tracking * Chemical Lifetime Dose Automatic Entry Manual Entr y Fluoro Time 2.6 minutes 2.6 minutes 0 minutes Air kerma at the reference point (Ka,r) 91.11 mGy 9 1.11 mGy 0 mGy DLP 7,198 mGycm 7,198 mGycm 0 mGycm Resolved Problems Problem Noted Date Diagnosed Date Resolved Date Cataract, left 03/08/2023 05/28/2023 Assessment & Plan (03/08/2023 11:40 AM A R SPECIALIST): Agree with cataract surgery. He has 1st [...] 08/30/2017 Assessment & Plan (03/02/2017 10:48 AM A R SPECIALIST): Mood is improved. Monitor off medication. 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 Assessment & Plan (03/07/2018 6:56 AM A R SPECIALIST): Continue current regimen. Advised annual eye exam.Limit nephrotoxins. Monitor creatinine. Avoid NSAIDS. Assessment & Plan (11/25/2017 10:16 AM CDT): Continue current regimen and add Januvia.Advised annual eye exam. Limit nephrotoxins. Monitor creatinine. Avoid NSAIDS. Assessment & Plan (01/15/2017 6:44 AM CDT): Continue current regimen. Advised annual eye exam. Reviewed proper diet. Continue statin therapy.
--- OUTSIDE RECORDS SUMMARY | 2024-07-01 09:24 | XMS_ITS | Clinical Summary ---
Author Organization [facility] Address [address] [place] [address] Care Team Providers Care Apparel Trimmings Sales Representative Name Role Phone Unavailable Primary Care Provider [...] 11/08/1959 Zoster Vaccines (1 of 2) 1990 Pneumococcal Vaccine: 65+ Ye ars (1 of 1 - PCV) 2005 RSV Immunization or 60+ Years (1 - 1-dose 75+ series) 11/08/2015 COVID-19 Vaccine ( - 2023-2 5 season) 2023 Influenza Adult (#1) 2024 Meningococcal B Vaccine Aged Out No l onger eligible based on patient's age to complete this topic Meningococcal Vaccine Aged Out No tonio tahira eligible based on patient's age to complete this topic RSV Immunizations Under 20 Months Aged Out No longer eligible based on patient's age to complete this topic
--- OUTSIDE RECORDS SUMMARY | 2024-07-01 09:24 | XMS_ITS | Clinical Summary ---
Author Organization [facility] Address [address] [place] [address] Care Team Providers Care Hand Candy Dipper Name Role Phone Kraig Ching MD Primary Care Provider [phone] Gautam Cope MD Unavailable Tramaine Roe MD Unavailable [phone] Sukhwinder Uribe MD Unavailable [phone] Shay Guillermo MD Unavailable [phone] Marsha Landis RN Unavailable Unavailab le Allergies Active Allergy Reactions Criticality Noted Date Comments Atorvastatin Muscle pain Medium 12/14/2019 Medications pen needle, diabetic (BD Ultra-Fine Short Pen [...] MEALS 3 mL 11 05/05/19 24 Active predniSONE (DELTASONE) 5 mg tablet Take 1 [...] 60 tablet 11 10/05/19 24 025 Active lisinopriL (PRINIVIL,ZEST RIL) 40 mg tablet Take 1 tablet (40 mg total) by mouth daily 90 tablet 3 12/01/19 24 025 Active chlorthalidone (HYGROTON) 25 mg tablet TAKE 1 TABLET(25 MG) BY MOUTH DAILY 90 tablet 1 01/03/20 24 Active Januvia 25 mg tabletIndicati ons:Type 2 diabetes mellitus with stage 3 chronic kidney disease, without long-term current use of insulin (HCC) TAKE 1 TABLET BY MOUTH DAILY 30 tablet 11 01/06/20 24 Active blood glucose diagnostic (Accu-Chek Guide [...] DAILY 10 mL 11 03/20/20 24 Active albuterol HFA (PROVENTIL HFA,VENTOLIN HFA,PROAIR HFA) 90 mcg/actuation inhaler Inhale 2 puffs every 8 (eight) hours as needed for wheezing or shortness of breath 1 each 3 04/03/20 24 Active cyanocobalamin (Vitamin B-12) 1,000 mcg tabletIndicati ons:Prevention of Vitamin B12 Deficiency Take 1 tablet (1,000 mcg total) by mouth daily 30 tablet 11 04/07/20 24 025 Active venlafaxine XR (EFFEXOR-XR) 37.5 mg 24 hr capsuleIndicat ions:Vasomotor symptoms r/t androgen deprivation therapy. Take 1 capsule (37.5 mg total) by mouth daily 30 capsule 04/25/19 25 026 Active Additional Information Patient not taking.Reported on 06/14/2024 ergocalciferol (VITAMIN D) 50,000 unit capsule Take 1 capsule (50,000 Units total) by mouth once a week Take 1 capsule every 7 days 10 capsule 04/28/[address] (PROTONIX) 40 mg EC tabletIndicati ons:Gastroesop hageal reflux disease, unspecified whether esophagitis present TAKE 1 TABLET(40 MG) BY MOUTH DAILY 90 tablet 1 05/25/19 25 Active LANTUS 100 unit/mL (3 mL) pen for injection ADMINISTER 28 UNITS UNDER THE SKIN DAILY 6 mL 1 06/02/19 25 Active Accu-Chek Fastclix Lancet Drum misc USE DIRECTED TWICE DAILY 204 each 06/15/19 25 Active oxyCODONE (ROXICODONE) 5 mg immediate release tabletIndicati ons:Pain Take 1 tablet (5 mg total) by mouth every 6 (six) hours as needed for pain 60 tablet 06/23/19 25 Active LANTUS 100 unit/mL (3 mL) pen for injection ADMINISTER 28 UNITS UNDER THE SKIN DAILY 6 mL 1 03/20/20 24 025 Discontinued Accu-Chek Fastclix Lancet Drum misc USE DIRECTED TWICE DAILY 204 each 04/11/20 24 025 Discontinued oxyCODONE (ROXICODONE) 5 mg immediate release tabletIndicati ons:Pain Take 1 tablet (5 mg total) by mouth every 6 (six) hours as needed for pain 60 tablet 05/03/19 25 025 Discontinued(R eorder) Active Problems Problem Noted Date Diagnosed Date Statin myopathy 06/08/2024 Essential hypertension 05/30/2024 Type 2 diabetes mellitus wit h stage 3b chronic kidney disease, with long-term current use of insulin 05/30/2024 Assessment & Plan (06/08/2024 4:46 AM DIRECTOR PRODUCT DEVELOPMENT): Continue current regimen.Limit nephrotoxins.Reviewed creatinine. Avoid NSAIDS. [...] 03/08/2023 Assessment & Plan (06/08/2024 4:46 AM DIRECTOR PRODUCT DEVELOPMENT): Hypertension is controlled. Continue current regimen. Assessment & Plan (10/05/2023 12:54 PM CDT): Hypertension is controlled. Decrease carvedilol to 12.5 mg. Assessment & Plan (03/08/2023 7:11 AM DIRECTOR PRODUCT DEVELOPMENT): Hypertension is controlled. Continue current regimen. 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 Avoid NSAIDS. Assessment & Plan (10/05/2023 5:50 AM CDT): Continue current regimen.Limit nephrotoxins.Reviewed creatinine. Avoid NSAIDS. Assessment & Plan (03/08/2023 7:12 AM DIRECTOR PRODUCT DEVELOPMENT): Continue current regimen.Limit nephrotoxins.Reviewed creatinine. Avoid NSAIDS. CKD (chronic kidney disease) 03/08/2022 Assessment & Plan (06/08/2024 4:45 AM DIRECTOR PRODUCT DEVELOPMENT): Limit nephrotoxins. Monitor creatinine. Avoid NSAIDS.Follow with Nephrology. 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 chronic kidney disease 2021 Gastroesophageal reflux disease 04/08/2021 Assessment & Plan (03/08/2023 11:17 AM DIRECTOR PRODUCT DEVELOPMENT): Reviewed dietary modifications. Continue PPI. Assessment & Plan (08/18/2022 6:36 AM CDT): Reviewed dietary modifications. Continue PPI. Assessment & Plan (02/12/2022 6:03 AM CDT): Reviewed dietary modifications. Continue PPI. Assessment & Plan (04/08/2021 5:55 AM DIRECTOR PRODUCT DEVELOPMENT): Reviewed dietary modifications. Continue PPI. 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 Continue home PT exercises. Advised using a walker. Assessment & Plan (08/18/2022 11:47 AM CDT): Continue oxycodone. Continue home PT exercises. Advised using a walker. Assessment & Plan (02/12/2022 11:41 AM CDT): Continue oxycodone. Continue home PT exercises. A prescription for a walker. Assessment & Plan (04/08/2021 5:55 AM DIRECTOR PRODUCT DEVELOPMENT): Continue oxycodone. Continue home PT exercises. Continue walker. Assessment & Plan (12/26/2020 10:48 AM CDT): Continue oxycodone. Script for walker. Assessment & Plan (09/26/2020 11:29 AM CDT): Continue ROM exercises and follow with Pain Management. Refill oxycodone as needed. Prostate cancer 09/06/2018 Assessment & Plan (06/08/2024 4:46 AM DIRECTOR PRODUCT DEVELOPMENT): Follow with Oncology. Continue Zytiga. Assessment & [...] 01/25/2018 Assessment & Plan (03/07/2018 6:54 AM DIRECTOR PRODUCT DEVELOPMENT): Hypertension is controlled. Continue current regimen. CHF [...] creatinine. Assessment & Plan (04/08/2021 5:54 AM DIRECTOR PRODUCT DEVELOPMENT): Hypertension is controlled. Continue current regimen.Limit nephrotoxins. [...] NSAIDS. Assessment & Plan (03/07/2018 6:55 AM DIRECTOR PRODUCT DEVELOPMENT): Hypertension is controlled. Continue current regimen. Limit nephrotoxins. Monitor creatinine. Avoid NSAIDS. Assessment & Plan (11/25/2017 7:09 AM CDT): Limit nephrotoxins. Monitor creatinine. Avoid NSAIDS. Duodenal ulcer 11/25/2017 Assessment & Plan (11/25/2017 10:16 AM CDT): Reviewed GI note . Continue pantoprazole. Avoid NSAIDS. Refer for EGD. PAF (paroxysmal atrial fibrillation) 10/22/2017 Assessment & Plan (03/07/2018 6:54 AM DIRECTOR PRODUCT DEVELOPMENT): Continue rate control. Continue anticoagualtion. Anticipate starting [...] NSAIDS. Assessment & Plan (03/07/2018 6:55 AM DIRECTOR PRODUCT DEVELOPMENT): Limit nephrotoxins. Monitor creatinine. Avoid NSAIDS. Assessment [...] diet. Assessment & Plan (04/08/2021 10:17 AM DIRECTOR PRODUCT DEVELOPMENT): Reviewed HgBA1C elevated at 10.6 on 04/01/21. [...] therapy. Assessment & Plan (03/07/2018 6:57 AM DIRECTOR PRODUCT DEVELOPMENT): Continue pravastatin. He had myalgias on other [...] diet. Assessment & Plan (03/02/2017 6:53 AM DIRECTOR PRODUCT DEVELOPMENT): Hypertension is controlled. Continue current regimen. Reviewed low sodium diet. Assessment & Plan (01/15/2017 6:44 AM CDT): Reviewed proper diet. Continue statin therapy. Hyperlipidemia 01/12/2012 Assessment & Plan (06/08/2024 4:46 AM DIRECTOR PRODUCT DEVELOPMENT): Continue pravastatin. Order lipid panel at next [...] 05/28/2023 Assessment & Plan (03/08/2023 11:40 AM DIRECTOR PRODUCT DEVELOPMENT): Agree with cataract surgery. 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 No indication for further testing. 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 Monitor off medication. Impotence [...] 200. Assessment & Plan (03/07/2018 6:56 AM DIRECTOR PRODUCT DEVELOPMENT): Continue current regimen. Advised annual eye exam.Limit nephrotoxins. Monitor creatinine. Avoid NSAIDS. Assessment & Plan (11/25/2017 10:16 AM CDT): Continue current regimen and add Januvia.Advised annual eye exam. Limit nephrotoxins. Monitor creatinine. Avoid NSAIDS. Assessment & Plan (01/15/2017 6:44 AM CDT): Continue current regimen. Advised annual eye exam. Reviewed proper diet. Continue statin therapy. Encounters Date Type Department Care Team Description 06/14/2024 6:15 PM DIRECTOR PRODUCT DEVELOPMENT Lab [facility] Advanced Medicine [facility] Advanced Medicine ([facility]) [address] [place] [address] GABRIELA (acute kidney injury) 06/14/2024 3:00 PM DIRECTOR PRODUCT DEVELOPMENT Office Visit [facility] Nephrology [address] [place] [address] [place] [address] Lin Guerrero MD Chronic kidney disease, stage 3b (HCC) (Primary Dx); GABRIELA (acute kidney injury); Hypertension, essential; Secondary hyperparathyroidism of renal origin 06/08/2024 12:00 PM DIRECTOR PRODUCT DEVELOPMENT Lab [facility] Advanced Medicine ([facility]) [address] [place] [phone] 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 chronic kidney disease (HCC); Hypertension, essential; Secondary hyperparathyroidism of renal origin; Stage 3 chronic kidney disease, unspecified whether stage 3a or 3b CKD (HCC); Primary hypertension; Vitamin D deficiency; Type 2 diabetes mellitus with stage 3a chronic kidney disease, with long-term current use of insulin (HCC); Fatigue, unspecified type; GABRIELA (acute kidney injury) 06/08/2024 9:45 AM DIRECTOR PRODUCT DEVELOPMENT Office Visit [address] [phone] Kraig Ching MD Hypertension, essential (Primary Dx); Prostate cancer (HCC); Type 2 diabetes mellitus with stage 3b chronic kidney disease, with long-term current use of insulin (HCC); Stage 3b chronic kidney disease (HCC); Hyperlipidemia, unspecified hyperlipidemia type 05/24/2024 Orders Only [facility] Nephrology [address] [place] [address] [place] [address] Lin Guerrero MD 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 chronic kidney disease (HCC) (Primary Dx); Hypertension, essential; Secondary hyperparathyroidism of renal origin; Stage 3 chronic kidney disease, unspecified whether stage 3a or 3b CKD (HCC); Primary hypertension; Vitamin D deficiency; Type 2 diabetes mellitus with stage 3a chronic kidney disease, with long-term current use of insulin (HCC); Fatigue, unspecified type; GABRIELA (acute kidney injury) 05/02/[address] [address] Kraig Ching MD Medical Question/Miscellaneous 04/28/2024 Telephone [facility] [address] [place] [address] [place] [address] Stef Roman NP 04/28/2024 Orders Only [address] 5th [place] [address] [place] [address] Stef Roman NP 04/25/2024 11:45 AM DIRECTOR PRODUCT DEVELOPMENT Infusion [facility] [address] [facility] [address] [place] [address] Prostate cancer (HCC) (Primary Dx) 04/25/2024 10:45 AM DIRECTOR PRODUCT DEVELOPMENT Office Visit [facility] Oncology [facility] Floor [address] [place] [address] Gautam Cope MD Prostate cancer (HCC) 04/25/2024 9:45 AM DIRECTOR PRODUCT DEVELOPMENT Lab [facility] - Lab Collection [facility] Floor [address] [place] [address] Prostate cancer (HCC) 04/24/2024 12:20 PM DIRECTOR PRODUCT DEVELOPMENT Office Visit [address] [place] [address] [place] [address] Daquan George MD Age-related osteoporosis without current pathological fracture (Primary Dx); Alkaline phosphatase elevation; Thyroid condition 04/24/2024 11:50 AM DIRECTOR PRODUCT DEVELOPMENT Clinical Support [address]th [place] [address] [place] [address] Age-related osteoporosis without current pathological fracture (Primary Dx) 04/24/[address]th [place] [address] [place] [address] Daquan George MD 04/19/2024 ZAK IP Outreach [facility] Care Organization [address] [place] [address] Lachelle Graham CMA 04/18/2024 Telephone [facility] Oncology [facility] Floor [address] [place] [phone] Ladi Bunch RN Request to cancel appts>04/18/24>reschedule 04/25/24 04/14/2024 11:45 AM DIRECTOR PRODUCT DEVELOPMENT - 04/14/2024 11:59 PM DIRECTOR PRODUCT DEVELOPMENT Hospital Encounter [facility] [address] [place] [address] Discharge Disposition: Discharge to home or self care 04/14/2024 11:45 AM DIRECTOR PRODUCT DEVELOPMENT - 04/14/2024 11:59 PM DIRECTOR PRODUCT DEVELOPMENT Hospital Encounter [facility]) [address] [place] [address] Gautam Cope MD Prostate cancer (HCC) Discharge Disposition: Discharge to home or self care 04/14/2024 11:44 AM DIRECTOR PRODUCT DEVELOPMENT - 04/14/2024 11:59 PM DIRECTOR PRODUCT DEVELOPMENT Hospital Encounter [facility] ([facility]) [address] [place] [address] Prostate cancer (HCC) Discharge Disposition: Discharge to home or self care 04/14/2024 Telephone [facility] Oncology [address] [place] [address] [address] [place] [address] Ladi Bunch, SHEA Needs number to Pharmacy>Request to move 04/18/24 appts lat 04/14/2024 Orders Only [facility] Oncology [address] [place] [address] 5 [place] [address] Gautam Cope MD 04/13/[address] Medical Office Building [address] [place] [address] Daquan George MD 04/13/2024 Documentation [facility] Oncology [facility] Floor [address] [place] [address] Ladi Bunch RN 04/06/2024 Telephone [facility] Oncology [address] [place] [address] Floor [address] [place] [address] Ladi Bunch, SHEA Follow-Up Call 04/04/2024 Telephone [facility] [address] [place] [address] Kraig Ching MD needs ZAK from Last 3 Months Immunizations Immunization Administration Dates Next Due Influenza, Quad, Adjuvantate d, Intramuscular 02/22/2021 Influenza, Quadrivalent, Amelia l Culture-based MDCK, Preservative Free, Antibiotic Free, Intramuscular 02/06/2020 Influenza, Quadrivalent, Hig h Dose, Preservative Free, Intrr 12/21/2022,02/12/2022 Influenza, Quadrivalent, Spl it, Preservative Free, Intramuscular 01/14/2015 Influenza, Trivalent, High D ose, Split, Preservative Free, Intramuscular 01/17/2019 Influenza, Unspecified 01/17/2019(Deferred: Daisy ent Refused) Collect (J&J) SARS-CoV-2 Vaccination 06/14/2020, 06/14/2020 [employer] SARS-CoV-2 Monovalent Vaccination (12+ Yrs) PURPLE 03/05/2021,02/22/2021 [...] Other 4 Hypertension; Anesthesia problems Neg Hx Broken bones Neg Hx Hip fracture Neg Hx Kyphosis Neg Hx Osteoporosis Neg Hx Scoliosis Neg Hx Relation Name Status Comments Father [...] pur e alcohol) Occasional glass of wine. [facility] Utilities Answer Date Recorded In the past 12 months has th e electric, gas, oil, or water company threatened to shut off services in your home? No 04/04/2024 Social Connection and Isolat ion Panel [NHANES] Answer Date Recorded In a typical week, how many times do you talk on the phone with family, friends, or neighbors? More than three times a week 04/04/2024 How often do you get togethe r with friends or relatives? More than three times a week 04/04/2024 How often do you attend chur ch or rastafari services? Never 04/04/2024 Do you belong to any clubs o r organizations such as voodoo groups, unions, fraternal or athletic groups, or school groups? No 04/04/2024 How often do you attend meet ings of the clubs or organizations you belong to? Never 04/04/2024 Are you , , di vorced, , never , or living with a partner? 04/04/2024 AUDIT-C Answer Date Recorded Q1: How often [...] Resource Strain (CARDIA) Answe r Date Recorded How hard is it for you to pa y for the very basics like food, housing, medical care, and heating? Not hard at all 04/04/2024 PHQ-2 Answer Date Recorded PHQ-2 Total Score (If total score is 3 or more points, staff should administer the PHQ-9) 0 06/08/2024 Hunger Vital Sign Answer Date Recorded Within the past 12 months, y ou worried that your food would run out before you got the money to buy more. Never true 04/04/20 Within the past 12 months, t he food you bought just didn't last and you didn't have money to get more. Never true 04/04/2024 PRAPARE - Transportation Answer Date Re corded In the past 12 months, has l ack of transportation kept you from medical appointments or from getting medications? No 03/13 In the past 12 months, has l ack of transportation kept you from meetings, work, or from getting things needed for daily living? No 04/04/2024 Housing Stability Vital Sign Answer Juancho e Recorded In the last 12 months, was t here a time when you were not able to pay the mortgage or rent on time? No 04/04/2024 In the past 12 months, how m any times have you moved where you were living? 0 04/04/2024 At any time in the past 12 m [facility], were you homeless or living in a care home (including now)? No 04/04/2024 Personal Safety Answer Date Recorded Have you ever been in or are you currently in a harmful physical or emotional relationship or is someone making you feel afraid or unsafe? Denies 06/09/2023 Sex and Gender Information Value Date Recorded Sex Assigned at Not on file Legal Sex Male 4:46 PM DIRECTOR PRODUCT DEVELOPMENT Gender Identity Not on file Sexual Orientation Not on file Obstetrics History Last Filed Vital Signs Vital Sign Reading Time Taken Comments Blood Pressure 153/78 06/14/2024 2:58 PM DIRECTOR PRODUCT DEVELOPMENT Pulse 81 06/14/2024 2:58 PM DIRECTOR PRODUCT DEVELOPMENT Temperature 36.4 C (97.6 F) 06/14/2024 2:58 PM DIRECTOR PRODUCT DEVELOPMENT Respiratory Rate 18 06/08/2024 9:51 AM DIRECTOR PRODUCT DEVELOPMENT Oxygen Saturation 99% 06/08/2024 9:51 AM DIRECTOR PRODUCT DEVELOPMENT Inhaled Oxygen Concentration - - Weight 93 kg (205 lb) 06/14/2024 2:58 PM DIRECTOR PRODUCT DEVELOPMENT Height 175.3 cm (5' 9 ) 06/14/2024 2:58 PM DIRECTOR PRODUCT DEVELOPMENT Body Mass Index 30.27 06/14/2024 2:58 PM DIRECTOR PRODUCT DEVELOPMENT Plan of Treatment Health Maintenance Due Date Last Done Comments DTaP/Tdap/Td Vaccine (1 - Tdap) 11/08/1951 Hepatitis B Screening 1958 Zoster Vaccine (1 of 2) 11/08/1959 Well Visit 65+ 03/27/2021 03/27/2020, 01/17/2019 Albumin Creatinine Ratio, Urine 01/02/2024 01/01/2023, 12/26/2020, 05/22/2019, Additional history exists Lipid Panel 03/08/2024 03/08/2023, 06/2021, 12/26/2020, Additional history exists Dilated Eye Exam 10/06/2024 10/07/2023, , 06/29/2018, Additional history exists Influenza Vaccine (#1) 2024 , 02/12/2022, 02/22/2021, Additional history exists Postponed from 12/12/2023 (Patient declined, but will receive in the future) Hemoglobin A1C 10/23/2024 04/25/2024, 12/2023, 07/27/2023, Additional history exists Covid-19 Vaccine ( season) 2025 03/07/2022, 10/24/2021, 03/05/2021, Additional history exists Postponed from 12/12/2023 (Patient declined, but will receive in the future) Depression Screening 06/08/2025 06/08/2024, 01/10/2024, 03/08/2023, Additional history exists Fall Risk Assessment 06/08/2025 06/08/2024, 06/09/2023, 03/08/2023, Additional history exists Foot Exam 06/08/2025 06/08/2024, 12/13, 08/19/2023, Additional history exists eGFR 06/14/2025 06/14/2024, 05/14, 04/25/2024, Additional history exists Pneumococcal vaccine 65+ Completed 08/08/2021, 11/2018 Goals Goal Patient Goal Type Associated Problems Recent Progress Patient-Stated? Author ZAK General Goal - Patient establishes care with [facility] ACO Care Management On track(2023 1:22 PM DIRECTOR PRODUCT DEVELOPMENT) No Gain, Clarissa Castellanos RN Note: Problem: Lack of [facility] communication Interventions: - Provide coordination between [facility] company and patient. - Ensure [facility] has appropriate referral and orders to establish care with patient. - Follow up with patient to ensure initial visit was completed by [facility] and that a [facility] plan has been started. ZAK General Goal - Patient schedules and keeps appointments with all recommended providers ACO Care Management Improving( 1:22 PM DIRECTOR PRODUCT DEVELOPMENT) No Gain, Clarissa Castellanos RN Note: Problem: Potential for medical complications and readmission if follow-up appointments are not scheduled Interventions: - Ensure all follow-up appointments are scheduled, all prescribed medications have been received. - Address any barriers for keeping scheduled appointment. - Coordinate with patient/caregiver(s) to ensure patient is able to keep scheduled appointment. - Emphasize importance of keeping scheduled appointments. - Identify and discuss questions for next provider visit. - Follow up with patient after scheduled appointment(s) to review any new orders or changes made to medication regimen. Medical Devices Implanted Type Area Stockroom Coordinator Device Identifier Shelf Expiration Date Model / Serial / Lot [employer] Lens Iol Cna0t0.195 [facility] Autonom Cna0t0.195 - [id number] - [id number] Implanted:Qty: 1 on 06/09/2023 by Higinio Connolly MD at [facility] Lens Right: Eye [employer] [id number] 10/27/2025 CNA0T0.19 5 / [id number] / [employer] Lens Iol Cna0t0.200 [facility] Autonom Cna0t0.200 - [id number] - [id number] Implanted:Qty: 1 on 05/19/2023 by Higinio Connolly MD at [facility] Left: Eye [employer] [id number] 10/06/2025 CNA0T0.20 0 / [id number] / Procedures Procedure Name Priority Date/Time Associated Diagnosis Comments EGFR Routine 06/14/2024 3:48 PM DIRECTOR PRODUCT DEVELOPMENT GABRIELA (acute kidney injury) RENAL FUNCTION PANEL Routine 06/14/2024 3:48 PM DIRECTOR PRODUCT DEVELOPMENT GABRIELA (acute kidney injury) URINALYSIS AND REFLEX TO MICROSCOPIC Routine 06/08/2024 10:47 AM DIRECTOR PRODUCT DEVELOPMENT 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 chronic kidney disease (HCC) Hypertension, essential Secondary hyperparathyroidism of renal origin Stage 3 chronic kidney disease, unspecified whether stage 3a or 3b CKD (HCC) Primary hypertension Vitamin D deficiency Type 2 diabetes mellitus with stage 3a chronic kidney disease, with long-term current use of insulin (HCC) Fatigue, unspecified type GABRIELA (acute kidney injury) EGFR Routine 06/08/2024 10:44 AM DIRECTOR PRODUCT DEVELOPMENT 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 chronic kidney disease (HCC) Hypertension, essential Secondary hyperparathyroidism of renal origin Stage 3 chronic kidney disease, unspecified whether stage 3a or 3b CKD (HCC) Primary hypertension Vitamin D deficiency Type 2 diabetes mellitus with stage 3a chronic kidney disease, with long-term current use of insulin (HCC) Fatigue, unspecified type GABRIELA (acute kidney injury) DIFFERENTIAL AUTO Routine 06/08/2024 10:44 AM DIRECTOR PRODUCT DEVELOPMENT 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 chronic kidney disease (HCC) Hypertension, essential Secondary hyperparathyroidism of renal origin Stage 3 chronic kidney disease, unspecified whether stage 3a or 3b CKD (HCC) Primary hypertension Vitamin D deficiency Type 2 diabetes mellitus with stage 3a chronic kidney disease, with long-term current use of insulin (HCC) Fatigue, unspecified type GABRIELA (acute kidney injury) RENAL FUNCTION PANEL Routine 06/08/2024 10:44 AM DIRECTOR PRODUCT DEVELOPMENT 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 chronic kidney disease (HCC) Hypertension, essential Secondary hyperparathyroidism of renal origin Stage 3 chronic kidney disease, unspecified whether stage 3a or 3b CKD (HCC) Primary hypertension Vitamin D deficiency Type 2 diabetes mellitus with stage 3a chronic kidney disease, with long-term current use of insulin (HCC) Fatigue, unspecified type GABRIELA (acute kidney injury) VITAMIN D 25 HYDROXY Routine 06/08/2024 10:44 AM DIRECTOR PRODUCT DEVELOPMENT 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 chronic kidney disease (HCC) Hypertension, essential Secondary hyperparathyroidism of renal origin Stage 3 chronic kidney disease, unspecified whether stage 3a or 3b CKD (HCC) Primary hypertension Vitamin D deficiency Type 2 diabetes mellitus with stage 3a chronic kidney disease, with long-term current use of insulin (HCC) Fatigue, unspecified type GABRIELA (acute kidney injury) CBC WITH AUTO DIFFERENTIAL Routine 06/08/2024 10:44 AM DIRECTOR PRODUCT DEVELOPMENT 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 chronic kidney disease (HCC) Hypertension, essential Secondary hyperparathyroidism of renal origin Stage 3 chronic kidney disease, unspecified whether stage 3a or 3b CKD (HCC) Primary hypertension Vitamin D deficiency Type 2 diabetes mellitus with stage 3a chronic kidney disease, with long-term current use of insulin (HCC) Fatigue, unspecified type GABRIELA (acute kidney injury) PTH Routine 06/08/2024 10:44 AM DIRECTOR [employer]ODUCT DEVELOPMENT 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 chronic kidney disease (HCC) Hypertension, essential Secondary hyperparathyroidism of renal origin Stage 3 chronic kidney disease, unspecified whether stage 3a or 3b CKD (HCC) Primary hypertension Vitamin D deficiency Type 2 diabetes mellitus with stage 3a chronic kidney disease, with long-term current use of insulin (HCC) Fatigue, unspecified type GABRIELA (acute kidney injury) PROTEIN / CREATININE RATIO, URINE, RANDOM Routine 06/08/2024 10:44 AM DIRECTOR [employer]ODUCT DEVELOPMENT 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 chronic kidney disease (HCC) Hypertension, essential Secondary hyperparathyroidism of renal origin Stage 3 chronic kidney disease, unspecified whether stage 3a or 3b CKD (HCC) Primary hypertension Vitamin D deficiency Type 2 diabetes mellitus with stage 3a chronic kidney disease, with long-term current use of insulin (HCC) Fatigue, unspecified type GABRIELA (acute kidney injury) EGFR STAT 04/25/2024 9:45 AM DIRECTOR PRODUCT DEVELOPMENT Prostate cancer (HCC) VITAMIN D 25 HYDROXY Routine 04/25/2024 9:45 AM DIRECTOR PRODUCT DEVELOPMENT Prostate cancer (HCC) TOTAL TESTOSTERONE Routine 04/25/2024 9:45 AM DIRECTOR PRODUCT DEVELOPMENT Prostate cancer (HCC) HEMOGLOBIN A1C Routine 04/25/2024 9:45 AM DIRECTOR PRODUCT DEVELOPMENT Prostate cancer (HCC) VITAMIN B12 Routine 04/25/2024 9:45 AM DIRECTOR PRODUCT DEVELOPMENT Prostate cancer (HCC) LACTATE DEHYDROGENASE Routine 04/25/2024 9:45 AM DIRECTOR [employer]ODUCT DEVELOPMENT Prostate cancer (HCC) COMPREHENSIVE METABOLIC PANEL STAT 04/25/2024 9:45 AM DIRECTOR PRODUCT DEVELOPMENT Prostate cancer (HCC) PSA DIAGNOSTIC Routine 04/25/2024 9:45 AM DIRECTOR [employer]ODUCT DEVELOPMENT Prostate cancer (HCC) DIFFERENTIAL AUTO Routine 04/25/2024 9:40 AM DIRECTOR [employer]ODUCT DEVELOPMENT Prostate cancer (HCC) CBC WITH AUTO DIFFERENTIAL Routine 04/25/2024 9:40 AM DIRECTOR PRODUCT DEVELOPMENT Prostate cancer (HCC) DEXA TBS AXIAL SKELETON BONE DENSITY 1 OR MORE SITES Schedule Routine, Read Routine (OP Routine) 04/24/2024 11:56 AM DIRECTOR [employer]ODUCT DEVELOPMENT Age-related osteoporosis without current pathological fracture NM BONE IMAGING WHOLE BODY Schedule Routine, Read Routine (OP Routine) 04/14/2024 3:16 PM DIRECTOR PRODUCT DEVELOPMENT Prostate cancer (HCC) CT CHEST ABDOMEN PELVIS WO CONTRAST Schedule Routine, Read Routine (OP Routine) 04/14/2024 2:18 PM DIRECTOR [employer]ODUCT DEVELOPMENT Prostate cancer (HCC) LIPID PANEL Routine 03/08/2023 11:55 AM DIRECTOR [employer]ODUCT DEVELOPMENT Hyperlipidemia, unspecified hyperlipidemia type ALBUMIN CREATININE RATIO, URINE Routine 01/01/2023 10:40 AM CDT Type 2 diabetes mellitus with stage 3a chronic kidney disease, with long-term current use of insulin (HCC) DIABETES EYE EXAM Routine 06/29/2018 from Last 3 Months or Most Recently Relevant to Health Maintenance Results * (ABNORMAL) eGFR (06/14/2024 3:48 PM DIRECTOR [employer]ODUCT DEVELOPMENT) eGFR 26(L) >=60 mL/min/1. 73 m2 Comment: Interpretive Data Reference Interval Normal >/= 90 mL/min/1.73m2 Mildly decreased* 60 - 89 mL/min/1.73m2 Mildly to moderately decreased 45 - 59 mL/min/1.73m2 Moderately to severely decreased 30 - 44 mL/min/1.73m2 Severely decreased 15 - 29 mL/min/1.73m2 Kidney Failure < 15 mL/min/1.73m2 *Relative to young adult level Estimated glomerular filtration rate is determined by the 2021 CKD-EPI equation recommended by the National Kidney [...] interpretive data was last reviewed 2021. Blood 06/14/2024 3:48 PM DIRECTOR [employer]ODUCT DEVELOPMENT 06/14/2024 4:07 PM DIRECTOR PRODUCT DEVELOPMENT us Lin Guerrero MD LAB BLOOD ORDERABLES Final Resul t [facility] Department [place] [address] * (ABNORMAL) Renal function panel (06/14/2024 3:48 PM DIRECTOR [employer]ODUCT DEVELOPMENT) Sodium 143 135 - 145 mmol/L Potassium, pl 5.0(H) 3.3 - 4.9 mmol/L [facility] Chloride 105 97 - 110 mmol/L [facility] CO2 28 22 - 32 mmol/L [facility] Anion gap 10 2 - 15 mmol/L [facility] BUN 48(H) 6 - 25 mg/dL [facility] Creatinine 2.42(H) 0.80 - 1.30 mg/dL [facility] Glucose 152 70 - 199 mg/dL [facility] Comment: Interpretive Data Fasting glucose >/= 126 mg/dl is diagnostic for diabetes. Fasting is defined as no caloric intake [...] interpretive data was last revised 2022. Calcium 8.7 8.5 - 10.3 mg/dL [facility] Phosphorus, pl 3.1 2.3 - 4.5 mg/dL [facility] Albumin 3.9 3.5 - 5.0 g/dL [facility] Blood 06/14/2024 3:48 PM DIRECTOR [employer]ODUCT DEVELOPMENT 06/14/2024 4:03 PM DIRECTOR PRODUCT DEVELOPMENT Lin Guerrero MD LAB BLOOD ORDERABLES Final Resul t Performing Organization Address [facility] de Phone Number [facility] [place] [address] * Urinalysis reflex to microscopic (06/08/2024 10:47 AM DIRECTOR [employer]ODUCT DEVELOPMENT) Color, ur Straw Yellow Clarity, ur Clear Clear [facility] Specific gravity, ur 1.012 1.003 - 1.030 [facility] pH, urine 6.0 [facility] Comment: Interpretive Data U rine pH is affected by diet, medications, systemic acid-base disturbances, and renal tubular function. pH may affect urinary stone formation. For example, urine pH below 6.0 may help reduce the tendency for calcium phosphate stones and pH greater than 6.0 may reduce the tendency for uric acid stone formation. Source: [facility] Current Interpretive Data was last revised on 2017 Protein, ur ql Trace Negative [facility] Glucose, ur ql Negative Negative [facility] Ketones, ur Negative Negative [facility] Bilirubin, ur Negative Negative [facility] Blood, ur Negative Negative [facility] Urobilinogen, ur <2.0 <2.0 mg/dL [facility] Nitrite, ur Negative Negative [facility] Leukocyte esterase, ur Negative Negative [facility] UA reflex comment Reflex conditions for microscopic UA not met. [facility] Urine 06/08/2024 10:4 7 AM DIRECTOR [employer]ODUCT DEVELOPMENT 06/08/2024 11:41 AM DIRECTOR PRODUCT DEVELOPMENT Lin Guerrero MD LAB URINE ORDERABLES Final Resul t Performing Organization Address [facility] Co de Phone Number [facility] [place] [address] * (ABNORMAL) eGFR (06/08/2024 10:44 AM DIRECTOR [employer]ODUCT DEVELOPMENT) [facility] eGFR 22(L) >=60 mL/min/1. 73 m2 Comment: Interpretive Data Reference Interval Normal >/= 90 mL/min/1.73m2 Mildly decreased* 60 - 89 mL/min/1.73m2 Mildly to moderately decreased 45 - 59 mL/min/1.73m2 Moderately to severely decreased 30 - 44 mL/min/1.73m2 Severely decreased 15 - 29 mL/min/1.73m2 Kidney Failure < 15 mL/min/1.73m2 *Relative to young adult level Estimated glomerular [...] interpretive data was last reviewed 2021. Blood 06/08/2024 10:4 4 AM DIRECTOR [employer]ODUCT DEVELOPMENT 06/08/2024 11:23 AM DIRECTOR [employer]ODUCT DEVELOPMENT us Lin Guerrero MD LAB BLOOD ORDERABLES Final Resul t [facility] Department [place] [address] * (ABNORMAL) Differential, auto (06/08/2024 10:44 AM DIRECTOR [employer]ODUCT DEVELOPMENT) [facility] Neutrophil abs 7.8(H) 1.5 - 6.5 K/cumm Imm gran abs 0.1 0.0 - 0.1 K/cumm [facility] Lymphocyte abs 1.9 0.8 - 3.3 K/cumm [facility] Monocyte abs 1.0(H) 0.2 - 0.8 K/cumm [facility] Eosinophil abs 0.1 0.0 - 0.5 K/cumm [facility] Basophil abs 0.0 0.0 - 0.1 K/cumm [facility] Neutrophil pct 71.1 % [facility] Comment: Interpretive Data Percent cell count reference ranges are not reported, since discordance with absolute values may lead to misinterpretation of CBC data. Current Interpretive Data was last revised on 2017. Imm gran pct 0.8 % [facility] Comment: Interpretive Data Percent cell count reference ranges are not reported, since discordance with absolute values may lead to misinterpretation of CBC data. Current Interpretive Data was last revised on 2017. Lymphocyte pct 17.1 % [facility] Comment: Interpretive Data Percent cell count reference ranges are not reported, since discordance with absolute values may lead to misinterpretation of CBC data. Current Interpretive Data was last revised on 2017. Monocyte pct 9.3 % [facility] Comment: Interpretive Data Percent cell count reference ranges are not reported, since discordance with absolute values may lead to misinterpretation of CBC data. Current Interpretive Data was last revised on 2017. Eosinophil pct 1.3 % [facility] Comment: Interpretive Data Percent cell count reference ranges are not reported, since discordance with absolute values may lead to misinterpretation of CBC data. Current Interpretive Data was last revised on 2017. Basophil pct 0.4 % [facility] Comment: Interpretive Data Percent cell count reference ranges are not reported, since discordance with absolute values may lead to misinterpretation of CBC data. Current Interpretive Data was last revised on 2017. Blood 06/08/2024 10:4 4 AM DIRECTOR [employer]ODUCT DEVELOPMENT 06/08/2024 11:23 AM DIRECTOR PRODUCT DEVELOPMENT us Lin Guerrero MD LAB BLOOD ORDERABLES Final Resul t [facility] Department [place] [address] * (ABNORMAL) CBC with auto differential (06/08/2024 10:44 AM DIRECTOR [employer]ODUCT DEVELOPMENT) WBC 11.0(H) 3.8 - 9.9 K/cumm Hgb 12.0(L) 13.0 - 17.5 g/dL [facility] Hct 36.9(L) 38.9 - 50.3 % [facility] Plt 357 150 - 400 K/cumm [facility] MPV 9.8 9.1 - 12.3 fL [facility] RBC 4.27(L) 4.30 - 5.80 M/cumm [facility] MCV 86.4 81.3 - 96.4 fL [facility] MCH 28.1 27.1 - 33.3 pg [facility] MCHC 32.5 32.3 - 35.7 g/dL [facility] RDW CV 14.1 11.1 - 14.9 % [facility] RDW SD 44.2 35.7 - 48.1 fL [facility] NRBC abs 0.00 0.00 - 0.01 K/cumm [facility] Blood 06/08/2024 10:4 4 AM DIRECTOR [employer]ODUCT DEVELOPMENT 06/08/2024 11:23 AM DIRECTOR PRODUCT DEVELOPMENT Lin Guerrero MD LAB BLOOD ORDERABLES Final Resul t Performing Organization Address [facility] de Phone Number [facility] Department [place] [address] * (ABNORMAL) Protein / creatinine ratio, urine, random (06/08/2024 10:44 AM DIRECTOR [employer]ODUCT DEVELOPMENT) Protein, ur, quant 21.3 mg/dL Comment: Interpretive Data No reference range established. Current interpretive data was last revised 2018. Creatinine Ur 52.2 mg/dL [facility] Comment: Interpretive Data No reference range established. Current interpretive data was last revised 2018. Protein/creatinin e ratio 408.0(H) 0.0 - 180.0 mg/g CR [facility] Urine 06/08/2024 10:4 4 AM DIRECTOR [employer]ODUCT DEVELOPMENT 06/08/2024 11:23 AM DIRECTOR PRODUCT DEVELOPMENT Lin Guerrero MD LAB URINE ORDERABLES Final Resul t Performing Organization Address [facility] de Phone Number [facility] [place] [address] * Vitamin D 25 hydroxy (06/08/2024 10:44 AM DIRECTOR PRODUCT DEVELOPMENT) Pathologist [facility] Vitamin D 25-OH 42 30 - 80 ng/mL Blood 06/08/2024 10:4 4 AM DIRECTOR [employer]ODUCT DEVELOPMENT 06/08/2024 11:23 AM DIRECTOR PRODUCT DEVELOPMENT Lin Guerrero MD LAB BLOOD ORDERABLES Final Resul t Performing Organization Address [facility] Co de Phone Number [facility] Department [place] [address] * (ABNORMAL) PTH (06/08/2024 10:44 AM DIRECTOR PRODUCT DEVELOPMENT) [facility] PTH 78(H) 15 - 65 pg/mL Blood 06/08/2024 10:4 4 AM DIRECTOR [employer]ODUCT DEVELOPMENT 06/08/2024 11:23 AM DIRECTOR PRODUCT DEVELOPMENT Lin Guerrero MD LAB BLOOD ORDERABLES Final Resul t Performing Organization Address [facility] de Phone Number [facility] [place] [address] * (ABNORMAL) Renal function panel (06/08/2024 10:44 AM DIRECTOR PRODUCT DEVELOPMENT) [facility] Sodium 142 135 - 145 mmol/L Potassium, pl 4.8 3.3 - 4.9 mmol/L [facility] Chloride 107 97 - 110 mmol/L [facility] CO2 27 22 - 32 mmol/L [facility] Anion gap 8 2 - 15 mmol/L [facility] BUN 60(H) 6 - 25 mg/dL [facility] Creatinine 2.72(H) 0.80 - 1.30 mg/dL [facility] Glucose 94 70 - 199 mg/dL [facility] Comment: Interpretive Data Fasting glucose >/= 126 mg/dl is diagnostic for diabetes. Fasting is defined as no caloric intake [...] interpretive data was last revised 2022. Calcium 9.0 8.5 - 10.3 mg/dL [facility] Phosphorus, pl 3.5 2.3 - 4.5 mg/dL [facility] Albumin 3.8 3.5 - 5.0 g/dL [facility] Blood 06/08/2024 10:4 4 AM DIRECTOR [employer]ODUCT DEVELOPMENT 06/08/2024 11:23 AM DIRECTOR PRODUCT DEVELOPMENT us Lin Guerrero MD LAB BLOOD ORDERABLES Final Resul t [facility] Department [place] [address] * (ABNORMAL) eGFR (04/25/2024 9:45 AM DIRECTOR [employer]ODUCT DEVELOPMENT) eGFR 28(L) >=60 mL/min/1. 73 m2 Comment: Interpretive Data Reference Interval Normal >/= 90 mL/min/1.73m2 Mildly decreased* 60 - 89 mL/min/1.73m2 Mildly to moderately decreased 45 - 59 mL/min/1.73m2 Moderately to severely decreased 30 - 44 mL/min/1.73m2 Severely decreased 15 - 29 mL/min/1.73m2 Kidney Failure < 15 mL/min/1.73m2 *Relative to young adult level Estimated glomerular [...] interpretive data was last reviewed 2021. Blood 04/25/2024 9:45 AM DIRECTOR PRODUCT DEVELOPMENT 04/25/2024 9:51 AM DIRECTOR PRODUCT DEVELOPMENT us Gautam Cope MD LAB BLOOD ORDERABLES Final Resul t Performing Organization Address [facility] Co de Phone Number [facility] [place] [address] * (ABNORMAL) Vitamin D 25 hydroxy (04/25/2024 9:45 AM DIRECTOR [employer]ODUCT DEVELOPMENT) Vitamin D 25-OH 22(L) 30 - 80 ng/mL Blood 04/25/2024 9:45 AM DIRECTOR PRODUCT DEVELOPMENT 04/25/2024 9:51 AM DIRECTOR PRODUCT DEVELOPMENT us Gautam Cope MD LAB BLOOD ORDERABLES Final Resul t Performing Organization Address [facility] Co de Phone Number [facility] [place] [address] * (ABNORMAL) Total testosterone (04/25/2024 9:45 AM DIRECTOR PRODUCT DEVELOPMENT) Testosterone <5.0(L) 193.0 - 740.0 ng/dL Blood 04/25/2024 9:45 AM DIRECTOR PRODUCT DEVELOPMENT 04/25/2024 11:20 AM DIRECTOR PRODUCT DEVELOPMENT us Gautam Cope MD LAB BLOOD ORDERABLES Final Resul t Performing Organization Address [facility] de Phone Number [facility] [place] [address] * PSA diagnostic (04/25/2024 9:45 AM DIRECTOR PRODUCT DEVELOPMENT) PSA-Total <0.02 <=6.20 ng/mL Comment: Interpretive Data AGE SEX REFERENCE INTERVAL 0 minutes-150 years Female None 0 minutes-49 years Male None 50-59 years Male 0-3.90 60-69 years Male 0-5.40 70-79 years Male 0-6.20 80-150 years Male 0-6.20 The [employer] PSA Total assay procedure was used. Results from different manufacturers or methods may not be comparable. Serial testing should be performed using the same method. Current interpretive data last revised 21. Blood 04/25/2024 9:45 AM DIRECTOR PRODUCT DEVELOPMENT 04/25/2024 9:51 AM DIRECTOR PRODUCT DEVELOPMENT us Gautam Cope MD LAB BLOOD ORDERABLES Final Resul t Performing Organization Address [facility] de Phone Number [facility] [place] [address] * Lactate dehydrogenase (LD) (04/25/2024 9:45 AM DIRECTOR PRODUCT DEVELOPMENT) [facility] Lactate dehydrogenase (LDH) 157 100 - 250 Units/L Blood 04/25/2024 9:45 AM DIRECTOR PRODUCT DEVELOPMENT 04/25/2024 9:51 AM DIRECTOR PRODUCT DEVELOPMENT us Gautam Cope MD LAB BLOOD ORDERABLES Final Resul t Performing Organization Address [facility] [place] [address] * (ABNORMAL) Hemoglobin A1c (04/25/2024 9:45 AM DIRECTOR PRODUCT DEVELOPMENT) [facility] Hgb A1C 8.1(H) 4.0 - 5.6 % Estimated Average Glucose 186 mg/dL [facility] Comment: The ADA recommends reporting an estimated Average Glucose (eAG) with all Hemoglobin A1c results using the equation derived from a study of 507 normal and diabetic adults. Minority populations were underrepresented and children were not included. (Diabetes Care 2020; 43(S1): S66-S76). The eAG is not equivalent to a fasting glucose. Blood 04/25/2024 9:45 AM DIRECTOR PRODUCT DEVELOPMENT 04/25/2024 9:51 AM DIRECTOR PRODUCT DEVELOPMENT us Gautam Cope MD LAB BLOOD ORDERABLES Final Resul t Performing Organization Address [facility] [place] [address] * Vitamin B12 (04/25/2024 9:45 AM DIRECTOR PRODUCT DEVELOPMENT) Vitamin B12 390 230 - 1,250 pg/mL Blood 04/25/2024 9:45 AM DIRECTOR PRODUCT DEVELOPMENT 04/25/2024 11:20 AM DIRECTOR PRODUCT DEVELOPMENT us Gautam Cope MD LAB BLOOD ORDERABLES Final Resul t [facility] Department [place] [address] * (ABNORMAL) Comprehensive metabolic panel (04/25/2024 9:45 AM DIRECTOR PRODUCT DEVELOPMENT) Sodium 142 135 - 145 mmol/L Potassium, pl 4.5 3.3 - 4.9 mmol/L [facility] Chloride 106 97 - 110 mmol/L [facility] CO2 29 22 - 32 mmol/L [facility] Anion gap 7 2 - 15 mmol/L [facility] BUN 41(H) 6 - 25 mg/dL [facility] Creatinine 2.25(H) 0.80 - 1.30 mg/dL [facility] Glucose 201(H) 70 - 199 mg/dL [facility] Comment: Interpretive Data Fasting glucose >/= 126 mg/dl is diagnostic for diabetes. Fasting is defined as no caloric intake [...] interpretive data was last revised 2022. Calcium 9.2 8.5 - 10.3 mg/dL [facility] Bilirubin, total 0.3 0.1 - 1.2 mg/dL [facility] Protein, pl 6.7 6.5 - 8.5 g/dL [facility] Albumin 3.9 3.5 - 5.0 g/dL [facility] Alk phos 128 40 - 130 Units/L [facility] ALT 10 7 - 55 Units/L [facility] AST 12 10 - 50 Units/L [facility] Blood 04/25/2024 9:45 AM DIRECTOR PRODUCT DEVELOPMENT 04/25/2024 9:51 AM DIRECTOR PRODUCT DEVELOPMENT us Gautam Cope MD LAB BLOOD ORDERABLES Final Resul t [facility] Department [place] [address] * (ABNORMAL) Differential, auto (04/25/2024 9:40 AM DIRECTOR PRODUCT DEVELOPMENT) Neutrophil abs 9.1(H) 1.5 - 6.5 K/cumm Comment:Testing performed by : [facility], [address] [place] [phone] Lymphocyte abs 1.6 0.8 - 3.3 K/cumm [facility] Comment:Testing performed by : [facility], [address] [place] [phone] Monocyte abs 0.9(H) 0.2 - 0.8 K/cumm [facility] Comment:Testing performed by : [facility], [address] [place] [phone] Eosinophil abs 0.2 0.0 - 0.5 K/cumm [facility] Comment:Testing performed by : [facility], [address] [place] [phone] Basophil abs 0.1 0.0 - 0.1 K/cumm [facility] Comment:Testing performed by : [facility], [address] [place] [phone] Neutrophil pct 76.7 % [facility] Comment: Interpretive Data Percent cell count reference ranges are not reported, since discordance with absolute values may lead to misinterpretation of CBC data. Current Interpretive Data was last revised on 2017. Testing performed by: [facility], [address] [place] [phone] Lymphocyte pct 13.2 % [facility] Comment: Interpretive Data Percent cell count reference ranges are not reported, since discordance with absolute values may lead to misinterpretation of CBC data. Current Interpretive Data was last revised on 2017. Testing performed by: [facility], [address] [place] [phone] Monocyte pct 7.1 % [facility] Comment: Interpretive Data Percent cell count reference ranges are not reported, since discordance with absolute values may lead to misinterpretation of CBC data. Current Interpretive Data was last revised on 2017. Testing performed by: [facility], [address] [place] [phone] Eosinophil pct 1.8 % [facility] Comment: Interpretive Data Percent cell count reference ranges are not reported, since discordance with absolute values may lead to misinterpretation of CBC data. Current Interpretive Data was last revised on 2017. Testing performed by: [facility], [address] [place] [phone] Basophil pct 1.2 % [facility] Comment: Interpretive Data Percent cell count reference ranges are not reported, since discordance with absolute values may lead to misinterpretation of CBC data. Current Interpretive Data was last revised on 2017. Testing performed by: [facility], [address] [place] [phone] Blood 04/25/2024 9:40 AM DIRECTOR PRODUCT DEVELOPMENT 04/25/2024 9:45 AM DIRECTOR PRODUCT DEVELOPMENT us Gautam Cope MD LAB BLOOD ORDERABLES Final Resul t [facility] [facility] Department [place] [address] * (ABNORMAL) CBC with auto differential (04/25/2024 9:40 AM DIRECTOR PRODUCT DEVELOPMENT) WBC 11.9(H) 3.8 - 9.9 K/cumm Comment:Testing performed by : [facility], [address] [place] [phone] Hgb 12.2(L) 13.0 - 17.5 g/dL MERLINE HARRIS Comment:Testing performed by : [facility], [address] [place], [place] [id number] Hct 38.8(L) 38.9 - 50.3 % CERNER BJ Comment:Testing performed by : [facility], [address] [place], [place] [id number] Plt 369 150 - 400 K/cumm CERNER BJ Comment:Testing performed by : [facility], [address] [place], [place] [id number] MPV 7.7 6.8 - 10.4 fL CERNER BJ Comment:Testing performed by : [facility], [address] [place], [place] [phone] RBC 4.38 4.30 - 5.80 M/cumm CERNER BJ Comment:Testing performed by : [facility], [address] [place], [place] [phone] MCV 88.6 81.3 - 96.4 fL CERNER BJ Comment:Testing performed by : [facility], [address] [place], [place] [phone] MCH 27.8 27.1 - 33.3 pg CERNER BJ Comment:Testing performed by : [facility], [address] [place], [place] [phone] MCHC 31.3(L) 32.3 - 35.7 g/dL CERNER BJ Comment:Testing performed by : [facility], [address] [place], [place] [phone] RDW CV 14.7 11.1 - 14.9 % CERNER BJ Comment:Testing performed by : [facility], [address] [place], [place] [phone] NRBC abs 0.00 0.00 - 0.01 K/cumm CERNER BJ Comment:Testing performed by : [facility], [address] [place], [place] [phone] Blood 04/25/2024 9:40 AM DIRECTOR PRODUCT DEVELOPMENT 04/25/2024 9:45 AM DIRECTOR PRODUCT DEVELOPMENT us Gautam Cope MD LAB BLOOD ORDERABLES Final Resul t CERNER [facility] Department [place] [address] * Dexa TBS Axial Skeleton Bone Density 1 or more sites (04/24/2024 11:56 AM DIRECTOR PRODUCT DEVELOPMENT) Anatomical Region Laterality Modality Wrist, Body N/A Radiographic Roberta ging Narrative 04/24/2024 12:52 PM DIRECTOR PRODUCT DEVELOPMENT Patient Name: David Wei Date of : 1940 Date of scan: 04/24/2024 Bone mineral density was performed on a HoloImage Socket Discovery Densitometer. Based on machine cross-calibration and precision studies the least significant changes of this densitometer is 0.024 g/cm2 at the spine, 0.020 g/cm2 at the total proximal femur, and 0.014g/cm2 at the forearm. HISTORY: This is a 83 y.o. male with a history of prostate cancer. He reports that he quit smoking about 15 years ago. His smoking use included cigarettes. He started smoking about 67 years ago. He has a 13 pack-year smoking history. He has been exposed to tobacco smoke. He has never used smokeless tobacco. Currently on treatment with glucocorticoids and androgen deprivation therapy and current complaint of back pain. INDICATIONS: Treatment monitoring, currently on 10 mg of glucocorticoids for the past 4 year(s), and androgen deprivation therapy. FINDINGS: BONE MINERAL DENSITY OF THE LUMBAR SPINE Bone Mineral Density (BMD) of the lumbar spine was measured from L1-L4 and the average density was calculated to be 1.464 gm/cm2. This corresponds to a T-score (standard deviations from the mean of young adults) of 3.4. When compared to the previous study of 06/10/2022 there has been a -0.031 gm/cm (-2.1%) decrease in bone density that is considered significant. BONE MINERAL DENSITY OF THE PROXIMAL FEMUR Bone Mineral Density (BMD) of the left hip total was found to be 0.986 gm/cm2. This corresponds to a T-score standard deviations from the mean of young adults of -0.3. Femoral neck is 0.824 gm/cm2 with a T-score (standard deviations from the mean of young adults) of -0.8. When compared to the previous study of 06/10/2022 there has been a -0.044 gm/cm (-4.3%) decrease in bone density that is considered significant. BONE MINERAL DENSITY OF THE FOREARM Bone Mineral density (BMD) of the right proximal 1/3 of the radius measures 0.832 gm/cm2. This corresponds to a T-score (standard deviations from the mean of young adults) of 0.3. When compared to the previous study of 06/10/2022 there has been no significant changes in bone density. A forearm bone density study was performed in addition to the routine study due to department forearm protocol. SUMMARY: Bone mineral density is near the young adult normal mean with no increased risk for fracture. There has been a significant decrease in bone density since previous measurement. The lumbar spine Trabecular Bone Score is 1.046 which suggests degraded bone microarchitecture compared to the general population. Final decisions regarding diagnostic or therapeutic recommendations should include BMD, TBS, additional clinical risk factors as well the clinical context of the patient. Please see attached TBS results for further details. ADDITIONAL COMMENTS: Postmenopausal Women and Men Over [...] bone mineral density scan were prepared by Alisha Suoza)([facility])who is accredited by the International Society of Clinical Densitometry. The overall patient assessment and scan interpretation were performed by Daquan George M.D. who is certified by the International Society of Clinical Densitometry. [id number] us Daquan George MD [facility] DXA PROCEDURES Final Result * NM bone scan whole body (04/14/2024 3:16 PM DIRECTOR PRODUCT DEVELOPMENT) Anatomical Region Laterality Modality N/A Nuclear Medicine 04/14/2024 4:21 PM DIRECTOR PRODUCT DEVELOPMENT Impressions 04/14/2024 5:00 PM DIRECTOR PRODUCT DEVELOPMENT No scintigraphic evidence of new or progressive metastatic osseous disease. Dictated by: Kraig Conte M.D. The radiology attending physician has personally reviewed this study, and had reviewed and/or edited this written report and agrees with it. Electronically signed by: Sandra Davila M.D. Narrative 04/14/2024 5:00 PM DIRECTOR PRODUCT DEVELOPMENT EXAMINATION: BONE SCINTIGRAPHY (WHOLE-BODY) DATE OF STUDY: 04/14/2024 RADIOPHARMACEUTICAL: 20.68 mCi Tc-99m MDP i.v. HISTORY: 83-year-old man with metastatic prostate cancer ([place] 4+3) diagnosed in 1999 status post radical prostatectomy. Started on leuprolide and abiraterone in October 2018 for local recurrence. Most recent PSA = <0.02 on 01/11/2024. FINDINGS: Delayed whole-body scintigrams were obtained. Prior nuclear medicine studies used for comparison: Whole body bone scintigraphy dated 03/25/2021 Other radiographic comparisons: CT of the chest, abdomen, and pelvis without contrast completed earlier the same day. There is decreased conspicuity of focus of activity within the right lateral aspect of the L2 vertebral body, which previously corresponded to sclerotic vertebral body lesion but is now favored to represent moderately advanced degenerative changes given undetectable PSA and CT appearance at this level. Uptake is seen within the stomach, which is located be due to radiopharmaceutical impurity. Focal uptake within the left mandible and right maxilla, likely related to dental disease. Degenerative pattern of uptake in both shoulders, both elbows, right wrist, and left greater than right sternoclavicular joints. Procedure Note Sandra Davila MD - 04/14/2024 EXAMINATION: BONE SCINTIGRAPHY (WHOLE-BODY) DATE OF STUDY: 04/14/2024 RADIOPHARMACEUTICAL: 20.68 mCi Tc-99m MDP i.v. HISTORY: 83-year-old man with metastatic prostate cancer ([place] 4+3) diagnosed in 1999 status post radical prostatectomy. Started on leuprolide and abiraterone in October 2018 for local recurrence. Most recent PSA = <0.02 on 01/11/2024. FINDINGS: Delayed whole-body scintigrams were obtained. Prior nuclear medicine studies used for comparison: Whole body bone scintigraphy dated 03/25/2021 Other radiographic comparisons: CT of the chest, abdomen, and pelvis without contrast completed earlier the same day. There is decreased conspicuity of focus of activity within the right lateral aspect of the L2 vertebral body, which previously corresponded to sclerotic vertebral body lesion but is now favored to represent moderately advanced degenerative changes given undetectable PSA and CT appearance at this level. Uptake is seen within the stomach, which is located be due to radiopharmaceutical impurity. Focal uptake within the left mandible and right maxilla, likely related to dental disease. Degenerative pattern of uptake in both shoulders, both elbows, right wrist, and left greater than right sternoclavicular joints. IMPRESSION: No scintigraphic evidence of new or progressive metastatic osseous disease. Dictated by: Kraig Conte M.D. The radiology attending physician has personally reviewed this study, and had reviewed and/or edited this written report and agrees with it. Electronically signed by: Sandra Davila M.D. Gautam Cope MD IM NM PROCEDURES Final Result * CT chest abdomen pelvis without contrast (04/14/2024 2:18 PM DIRECTOR PRODUCT DEVELOPMENT) Anatomical Region Laterality Modality Body N/A Computed Tomogra phy 04/14/2024 2:39 PM DIRECTOR PRODUCT DEVELOPMENT Impressions 04/14/2024 2:39 PM DIRECTOR PRODUCT DEVELOPMENT 1. Unchanged subtle groundglass opacities in the right upper lobe and right lower lobe dating back to 2020. No definite evidence of metastatic disease in the chest. 2. Postsurgical changes of radical prostatectomy without evidence of visceral metastatic disease in the abdomen and pelvis. 3. Minimal sclerosis of the L2 vertebral body, compatible with treated osseous metastatic disease. The lesion is overall decreased in conspicuity since 2019. Electronically signed by: Meeta Seals M.D. Narrative 04/14/2024 2:39 PM DIRECTOR PRODUCT DEVELOPMENT EXAMINATION: CT CHEST ABDOMEN PELVIS WO CONTRAST HISTORY: 83-year-old with metastatic prostate cancer. Patient status post radical prostatectomy in 1999 with local recurrence with osseous metastatic disease. TECHNIQUE: Transaxial computed tomographic images of the chest, abdomen and pelvis were obtained without intravenous contrast according to the standard protocol. COMPARISON: CT 06/15/2023, 05/26/2020 FINDINGS: Subtle right upper lobe groundglass opacity is unchanged (table position 105.6). Additional area of subtle groundglass opacity in the right lower lobe is unchanged (table position 185.6). No new pulmonary nodules. Normal thyroid. No supraclavicular or axillary lymphadenopathy. No mediastinal or hilar lymphadenopathy. The thoracic aorta is normal in caliber with three-vessel arch. Heart size is normal without pericardial effusion. Aortic valve calcifications. Coronary artery calcifications. Trachea and central airways are clear. Esophagus is decompressed. No suspicious liver lesion on noncontrast examination. Cholecystectomy. No biliary ductal dilation. Pancreas and spleen are normal. Normal adrenal gland. An exophytic right mid zone renal lesion which measures slightly higher than fluid attenuation is unchanged and may represent a hemorrhagic cyst. Small left mid zone renal cyst. Small right lower pole hemorrhagic cyst. No hydronephrosis. No mesenteric or retroperitoneal lymphadenopathy. Normal caliber of the abdominal aorta. Urinary bladder is decompressed. Postsurgical changes of radical prostatectomy. A penile pump reservoir is seen in the left pelvis. No pelvic lymphadenopathy or free fluid. Colonic diverticulosis without evidence of bowel obstruction. Normal appendix. Small bowel is normal in caliber. Stomach and duodenal sweep are normal. No acute fracture. Sclerotic osseous metastasis of L2 is overall less conspicuous compared to 2020 05/01/2019. No new suspicious osseous lesion. Multiple sclerotic lesions in the humeral heads are unchanged compared to 2020. Procedure Note Meeta Seals MD - 04/14/2024 EXAMINATION: CT CHEST ABDOMEN PELVIS WO CONTRAST HISTORY: 83-year-old with metastatic prostate cancer. Patient status post radical prostatectomy in 1999 with local recurrence with osseous metastatic disease. TECHNIQUE: Transaxial computed tomographic images of the chest, abdomen and pelvis were obtained without intravenous contrast according to the standard protocol. COMPARISON: CT 06/15/2023, 05/26/2020 FINDINGS: Subtle right upper lobe groundglass opacity is unchanged (table position 105.6). Additional area of subtle groundglass opacity in the right lower lobe is unchanged (table position 185.6). No new pulmonary nodules. Normal thyroid. No supraclavicular or axillary lymphadenopathy. No mediastinal or hilar lymphadenopathy. The thoracic aorta is normal in caliber with three-vessel arch. Heart size is normal without pericardial effusion. Aortic valve calcifications. Coronary artery calcifications. Trachea and central airways are clear. Esophagus is decompressed. No suspicious liver lesion on noncontrast examination. Cholecystectomy. No biliary ductal dilation. Pancreas and spleen are normal. Normal adrenal gland. An exophytic right mid zone renal lesion which measures slightly higher than fluid attenuation is unchanged and may represent a hemorrhagic cyst. Small left mid zone renal cyst. Small right lower pole hemorrhagic cyst. No hydronephrosis. No mesenteric or retroperitoneal lymphadenopathy. Normal caliber of the abdominal aorta. Urinary bladder is decompressed. Postsurgical changes of radical prostatectomy. A penile pump reservoir is seen in the left pelvis. No pelvic lymphadenopathy or free fluid. Colonic diverticulosis without evidence of bowel obstruction. Normal appendix. Small bowel is normal in caliber. Stomach and duodenal sweep are normal. No acute fracture. Sclerotic osseous metastasis of L2 is overall less conspicuous compared to 201905/01/2019. No new suspicious osseous lesion. Multiple sclerotic lesions in the humeral heads are unchanged compared to 2020. IMPRESSION: 1. Unchanged subtle groundglass opacities in the right upper lobe and right lower lobe dating back to 2020. No definite evidence of metastatic disease in the chest. 2. Postsurgical changes of radical prostatectomy without evidence of visceral metastatic disease in the abdomen and pelvis. 3. Minimal sclerosis of the L2 vertebral body, compatible with treated osseous metastatic disease. The lesion is overall decreased in conspicuity since 2019. Electronically signed by: Meeta Seals M.D. Gautam Cope MD IMG CT PROCEDURES Final Result * (ABNORMAL) Lipid panel (03/08/2023 11:55 AM DIRECTOR PRODUCT DEVELOPMENT) Cholesterol 193 30 - 199 mg/dL MERLINE HARRIS Comment: Interpretive Data Ages < or = 19 years Acceptable: <170 mg/dL Borderline high: 170-199 mg/dL High: >or= 200 mg/dL Ages > or = 20 years Desirable: <200 mg/dL Borderline high: 200-239 mg/dL High: >or= 240 mg/dL Literature References: 1. Expert Panel on Integrated Guidelines for Cardiovascular Health and Risk Reduction in Children and Adolescents. Pediatrics 2011;128:S213 2. NCEP Expert Panel. Circulation 2004;110:227 Current Interpretive Data was last revised on 2017. Triglycerides 250(H) <=149 mg/dL MERLINE HARRIS Comment: Interpretive Data Ages < or = 9 years Acceptable: <75 mg/dL Borderline high: 75-99 mg/dL High: >or= 100 mg/dL Ages 10 to 20 years Acceptable: <90 mg/dL Borderline high: 90-129 mg/dL High: >or= 130 mg/dL Ages > or = 20 years Desirable: <150 mg/dL Borderline high: 150-199 mg/dL High: 200-499 mg/dL Very high: >or= 499 mg/dL Literature References: 1. Expert Panel on Integrated Guidelines for Cardiovascular Health and Risk Reduction in Children and Adolescents. Pediatrics 2011;128:S213 2. NCEP Expert Panel. Circulation 2004;110:227 Current Interpretive Data was last revised on 2017. HDL 36(L) >=40 mg/dL [facility] Comment: Interpretive Data Ages < or = 19 years Acceptable: >45 mg/dL Borderline low: 40-45 mg/dL Low: <40 mg/dL Ages > or = 20 years Desirable: >or= 60 mg/dL Low: <40 mg/dL Literature References: 1. Expert Panel on Integrated Guidelines for Cardiovascular Health and Risk Reduction in Children and Adolescents. Pediatrics 2011;128:S213 2. NCEP Expert Panel. Circulation 2004;110:227 Current Interpretive Data was last revised on 2017. LDL, calculated 107 <=129 mg/dL [facility]LINE [facility] Comment: Interpretive Data Ages < or = 19 years Acceptable: <110 mg/dL Borderline high: 110-129 mg/dL High: >or= 130 mg/dL Ages > or = 20 years Optimal: <100 mg/dL Near optimal: 100-129 mg/dL Borderline high: 130-159 mg/dL High: >160 mg/dL Literature References: 1. Expert Panel on Integrated Guidelines for Cardiovascular Health and Risk Reduction in Children and Adolescents. Pediatrics 2011;128:S213 2. NCEP Expert Panel. Circulation 2004;110:227 Current Interpretive Data was last revised on 2017. Non-HDL Cholesterol 157 mg/dL [facility] Comment: Interpretive Data Ages < or = 19 years Acceptable: <120 mg/dL Borderline high: 120-144 mg/dL High: >145 mg/dL Ages > or = 20 years When triglycerides are >200 mg/dL, Non-HDL cholesterol is a secondary target of therapy with treatment goals that are 30 mg/dL greater than the LDL cholesterol target. Literature References: 1. Expert Panel on Integrated Guidelines for Cardiovascular Health and Risk Reduction in Children and Adolescents. Pediatrics 2011;128:S213 2. NCEP Expert Panel. Circulation 2004;110:227 Current Interpretive Data was last revised on 2017. Chol/HDL ratio 5 [facility] Blood 03/08/2023 11:5 5 AM DIRECTOR PRODUCT DEVELOPMENT 03/08/2023 3:48 PM DIRECTOR PRODUCT DEVELOPMENT Kraig Ching MD LAB BLOOD ORDERABLES Final Re sult Performing Organization Address [facility] de Phone Number [facility] Department [place] [address] * (ABNORMAL) Albumin Creatinine Ratio, Urine (01/01/2023 10:40 AM CDT) Albumin Ur 227.3 mg/L [facility] Comment: Interpretive Data No reference range established. Current interpretive data was last revised 2018. Creatinine Ur 66.5 mg/dL [facility] Comment: Interpretive Data No reference range established. Current interpretive data was last revised 2018. Albumin Creatinine Ratio, Ur 342(H) 1 - 29 mg/g [facility] Urine 01/01/2023 10:4 0 AM CDT 01/01/2023 10:45 AM CDT Result [facility] Kraig Ching MD LAB URINE ORDERABLES Final Re sult Performing Organization Address [facility] Co de Phone Number [facility] Department [place] [address] * DIABETES EYE EXAM (06/29/2018) Pathologist [facility] Diabetic Eye Exam Normal Result [facility] Coleen Salas MD HEALTH MAINTENANCE Final Result from Last 3 Months or Most Recently Relevant to Health Maintenance Insurance TNA MEDICARE TNA MEDICARE T MEDICARE AETNA MEDICARE Advance Directives For more information, please contact: [phone] * Full Code (Latest Code Status on File) Date Activated Date Inactivated Comments 12/16/2017 2:44 PM 12/16/2017 7:18 PM Care Teams Hand Candy Dipper Relationship Specialty Start Date End Date Kraig Ching MD [address] [place] [address] PCP - General 07/10/16 Gautam Cope MD [address] [place] [address] Medical Oncologist/Lead Cytogenetic Technologist Medical Oncology 08/18/18 Tramaine Roe MD [address] [place] [address] Referring Physician Urology 08/18/18 Sukhwinder Uribe MD [address] [place] [address] Consulting Physician Urology 08/18/18 Shay Guillermo MD [address] [facility] [address] [place] [address] Referring Physician Urology 08/18/18 Marsha Landis, RN Registered Nurse 11/17/18
--- OUTSIDE RECORDS SUMMARY | 2024-07-01 09:24 | XMS_ITS | Encounter Summary ---
Author Organization 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 Gender Identity Not on file Sexual Orientation Not on file documented as of this encounter Functional Status documented as of this encounter Plan of Treatment Scheduled Orders Name Type Priority Associated Diagnoses Orde r Schedule CARDIOLOGY DOCUMENT SCAN Cardiac Services Ordered: 03/21/2023 documented as of this encounter Visit Diagnoses Not on filedocumented in this encounter Care Teams Publication Editor Relationship Specialty Start Date End Date Kraig Ching MD [address] [facility] [address] [place] [address] PCP - General 07/10/16 Gautam Cope MD [address] [facility] [address] [place] [address] Medical Oncologist/Supervisor Filtration Medical Oncology 08/18/18 Tramaine Roe MD [address] [facility] [address] [place] [address] Referring Physician Urology 08/18/18 Sukhwinder Uribe MD [address] [facility] [address] [place] [address] Consulting Physician Urology 08/18/18 Shay Guillermo MD [address] [facility] [address] [place] [address] Referring Physician Urology 08/18/18 Marsha Landis RN Registered Nurse 11/17/18 Clarissa Luna RN [address] [place] [address] [address] [place] [address] Student Assistant 04/04/24 04/26/24 documented as of this encounter
--- OUTSIDE RECORDS SUMMARY | 2024-07-01 09:24 | XMS_ITS | Encounter Summary ---
Author Organization [facility] Address [address] [place] [address] Phone Care Team Providers Care Mold Shifter Name Role Phone Kraig Ching MD Primary Care Provider [phone] Gautam Cope MD Unavailable Tramaine Roe MD Unavailable [phone] Sukhwinder Uribe MD Unavailable [phone] Shay Guillermo MD Unavailable [phone] Marsha Landis RN Unavailable Unavailab Ilene Kaur RN Unavailable [phone] Clarissa Luna RN Unavailable [phone] Encounter Details Date Type Department Care Team (Late st Contact Info) Description 12/06/2018 Telephone [facility] Oncology [address] [facility] Advanced Medicine 7th [place] [address] Salena Bryan NP [address] [place] [address] Social History Tobacco Use Types Packs/Day Years [...] on file Legal Sex Male 4:46 PM [employer] Gender Identity Not on file Sexual Orientation Not on file documented as of this encounter Plan of Treatment Not on file documented as of this encounter Visit Diagnoses Not on filedocumented in this encounter Care Teams Mold Shifter Relationship Specialty Start Date End Date Kraig Ching MD [address] [place] [address] PCP - General 07/10/16 Gautam Cope MD [address] [place] [address] Medical Oncologist/Senior [employer] Medical Oncology 08/18/18 Tramaine Roe MD [address] [place] [address] Referring Physician Urology 08/18/18 Sukhwinder Uribe MD [address] [place] [address] Consulting Physician Urology 08/18/18 Shay Guillermo MD [address] [place] [address] Referring Physician Urology 08/18/18 Marsha Landis, RN Registered Nurse 11/17/18 Ilene Fragoso RN [address] [place] [address] Director Of Financial Aid 12/23/18 11/01/19 Clarissa Luna RN [address] [place] [address] Director Of Financial Aid 04/04/24 04/26/24 documented as of this encounter
--- OUTSIDE RECORDS SUMMARY | 2024-07-01 09:24 | XMS_ITS | Referral Summary ---
Author Organization [facility] Address [address] [place] [address] Care Team Providers Care Repair Armature Winder Helper Name Role Phone Kraig Ching MD Primary Care Provider [phone] Gautam Cope MD Unavailable Tramaine Roe MD Unavailable [phone] Sukhwinder Uribe MD Unavailable Shay Guillermo MD Unavailable [phone] Marsha Landis RN Unavailable Unavailab le Encounters Date Type Department Care Team Description 06/14/2024 6:15 PM MOBILITY DEVELOPER Lab [facility] ([facility]) [address] [place] [phone] GABRIELA (acute kidney injury) 06/14/2024 3:00 PM MOBILITY DEVELOPER Office Visit [facility] Nephrology [address] [place] [address] 5th [place] [address] [place] [phone] Lin Guerrero MD Chronic kidney disease, stage 3b (HCC) (Primary Dx); GABRIELA (acute kidney injury); Hypertension, essential; Secondary hyperparathyroidism of renal origin 06/08/2024 12:00 PM MOBILITY DEVELOPER Lab [facility] ([facility]) [address] [place] [phone] 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 chronic kidney disease (HCC); Hypertension, essential; Secondary hyperparathyroidism of renal origin; Stage 3 chronic kidney disease, unspecified whether stage 3a or 3b CKD (HCC); Primary hypertension; Vitamin D deficiency; Type 2 diabetes mellitus with stage 3a chronic kidney disease, with long-term current use of insulin (HCC); Fatigue, unspecified type; GABRIELA (acute kidney injury) 06/08/2024 9:45 AM MOBILITY DEVELOPER Office Visit [address] [phone] Kraig Ching MD Hypertension, essential (Primary Dx); Prostate cancer (HCC); Type 2 diabetes mellitus with stage 3b chronic kidney disease, with long-term current use of insulin (HCC); Stage 3b chronic kidney disease (HCC); Hyperlipidemia, unspecified hyperlipidemia type 05/24/2024 Orders Only [facility] Nephrology [address] [place] [address] [place] [address] Lin Guerrero MD 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 [...] type; GABRIELA (acute kidney injury) 05/02/[address] [address] Kraig Ching MD Medical Question/Miscellaneous 04/28/[address] [place] [address] Stef Rmoan NP 04/28/2024 Orders Only [address] [place] [address] Stef Roman NP 04/25/2024 11:45 AM MOBILITY DEVELOPER Infusion [facility] Infusion [address] [facility] Floor [address] [place] [address] Prostate cancer (HCC) (Primary Dx) 04/25/2024 9:45 AM MOBILITY DEVELOPER Lab [facility] - Lab Collection [address] [facility] Floor 5 [place] [address] Prostate cancer (HCC) 04/25/2024 10:45 AM MOBILITY DEVELOPER Office Visit [facility] Oncology [facility] Floor 5 [place] [address] Gautam Cope MD Prostate cancer (HCC) 04/24/[address] Advanced [facility] 5th [place] [address] [place] [address] Daquan George MD 04/24/2024 11:50 AM MOBILITY DEVELOPER Clinical Support [address] 5th [place] [address] [place] [address] Age-related osteoporosis without current pathological fracture (Primary Dx) 04/24/2024 12:20 PM MOBILITY DEVELOPER Office Visit [address] 5th [place] [address] [place] [address] Daquan George MD Age-related osteoporosis without current pathological fracture (Primary Dx); Alkaline phosphatase elevation; Thyroid condition 04/19/2024 ZAK IP Outreach [facility] Accountable Care Organization [address] [place] [address] Lachelle Graham CMA 04/18/2024 Telephone [facility] Oncology [facility] Floor [address] [place] [address] Ladi Bunch, SHEA Request to cancel appts>04/18/24>reschedule 04/25/24 04/14/2024 Telephone [facility] Oncology [facility] Floor [address] [place] [address] Ladi Bunch, RN Needs number to Pharmacy>Request to move 04/18/24 appts lat 04/14/2024 Orders Only [facility] Oncology [facility] Floor [address] [place] [address] Gautam Cope MD 04/14/2024 11:45 AM MOBILITY DEVELOPER - 04/14/2024 11:59 PM MOBILITY DEVELOPER Hospital Encounter [facility] [address] [place] [phone] Discharge Disposition: Discharge to home or self care 04/14/2024 11:44 AM MOBILITY DEVELOPER - 04/14/2024 11:59 PM MOBILITY DEVELOPER Hospital Encounter [facility]) [address] [place] [address] Prostate cancer (HCC) Discharge Disposition: Discharge to home or self care 04/14/2024 11:45 AM MOBILITY DEVELOPER - 04/14/2024 11:59 PM MOBILITY DEVELOPER Hospital Encounter [facility]) [address] [place] [address] Gautam Cope MD Prostate cancer (HCC) Discharge Disposition: Discharge to home or self care 04/13/[address] [facility] Medical Office Building 2 [address] [place] [phone] Daquan George MD 04/13/2024 Documentation [facility] Oncology [facility] Floor [address] [place] [phone] Ladi Bunch RN 04/06/2024 Telephone [facility] Oncology [facility] Floor [address] [place] [phone] Ladi Bunch, SHEA Follow-Up Call 04/04/2024 Telephone [id number] [address] [place] [phone] Kraig Ching MD needs ZAK from Last 3 Months Allergies Active Allergy [...] DAILY BEFORE MEALS 3 mL 11 05/05/19 Active predniSONE (DELTASONE) 5 mg tablet Take 1 tablet (5 mg) by mouth two times a day 60 tablet 08/12/19 24 Active pravastatin (PRAVACHOL) 20 mg [...] mg total) by mouth daily 30 capsule 11 04/25/19 026 Active Additional Information Patient not taking.Reported [...] pain 60 tablet 05/03/19 25 025 Discontinued(R eojuaner) Active Problems Problem Noted Date Diagnosed Date Statin myopathy 06/08/2024 Essential hypertension 05/30/2024 Type 2 diabetes mellitus wit h stage 3b chronic kidney disease, with long-term current use of insulin 05/30/2024 Assessment & Plan (06/08/2024 4:46 AM MOBILITY DEVELOPER): Continue current regimen.Limit nephrotoxins.Reviewed creatinine. Avoid NSAIDS. [...] 03/08/2023 Assessment & Plan (06/08/2024 4:46 AM MOBILITY DEVELOPER): Hypertension is controlled. Continue current regimen. Assessment & Plan (10/05/2023 12:54 PM CDT): Hypertension is controlled. Decrease carvedilol to 12.5 mg. Assessment & Plan (03/08/2023 7:11 AM MOBILITY DEVELOPER): Hypertension is controlled. Continue current regimen. 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 Avoid NSAIDS. Assessment & Plan (10/05/2023 5:50 AM CDT): Continue current regimen.Limit nephrotoxins.Reviewed creatinine. Avoid NSAIDS. Assessment & Plan (03/08/2023 7:12 AM MOBILITY DEVELOPER): Continue current regimen.Limit nephrotoxins.Reviewed creatinine. Avoid NSAIDS. CKD (chronic kidney disease) 03/08/2022 Assessment & Plan (06/08/2024 4:45 AM MOBILITY DEVELOPER): Limit nephrotoxins. Monitor creatinine. Avoid NSAIDS.Follow with Nephrology. 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 chronic kidney disease 2021 Gastroesophageal reflux disease 04/08/2021 Assessment & Plan (03/08/2023 11:17 AM MOBILITY DEVELOPER): Reviewed dietary modifications. Continue PPI. Assessment & Plan (08/18/2022 6:36 AM CDT): Reviewed dietary modifications. Continue PPI. Assessment & Plan (02/12/2022 6:03 AM CDT): Reviewed dietary modifications. Continue PPI. Assessment & Plan (04/08/2021 5:55 AM MOBILITY DEVELOPER): Reviewed dietary modifications. Continue PPI. 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 Continue home PT exercises. Advised using a walker. Assessment & Plan (08/18/2022 11:47 AM CDT): Continue oxycodone. Continue home PT exercises. Advised using a walker. Assessment & Plan (02/12/2022 11:41 AM CDT): Continue oxycodone. Continue home PT exercises. A prescription for a walker. Assessment & Plan (04/08/2021 5:55 AM MOBILITY DEVELOPER): Continue oxycodone. Continue home PT exercises. Continue walker. Assessment & Plan (12/26/2020 10:48 AM CDT): Continue oxycodone. Script for walker. Assessment & Plan (09/26/2020 11:29 AM CDT): Continue ROM exercises and follow with Pain Management. Refill oxycodone as needed. Prostate cancer 09/06/2018 Assessment & Plan (06/08/2024 4:46 AM MOBILITY DEVELOPER): Follow with Oncology. Continue Zytiga. Assessment & [...] 01/25/2018 Assessment & Plan (03/07/2018 6:54 AM MOBILITY DEVELOPER): Hypertension is controlled. Continue current regimen. CHF [...] creatinine. Assessment & Plan (04/08/2021 5:54 AM MOBILITY DEVELOPER): Hypertension is controlled. Continue current regimen.Limit nephrotoxins. [...] NSAIDS. Assessment & Plan (03/07/2018 6:55 AM MOBILITY DEVELOPER): Hypertension is controlled. Continue current regimen. Limit nephrotoxins. Monitor creatinine. Avoid NSAIDS. Assessment & Plan (11/25/2017 7:09 AM CDT): Limit nephrotoxins. Monitor creatinine. Avoid NSAIDS. Duodenal ulcer 11/25/2017 Assessment & Plan (11/25/2017 10:16 AM CDT): Reviewed GI note . Continue pantoprazole. Avoid NSAIDS. Refer for EGD. PAF (paroxysmal atrial fibrillation) 10/22/2017 Assessment & Plan (03/07/2018 6:54 AM MOBILITY DEVELOPER): Continue rate control. Continue anticoagualtion. Anticipate starting Eliquis after cleared by [facility]. Assessment & Plan (11/25/2017 10:16 AM CDT): [...] NSAIDS. Assessment & Plan (03/07/2018 6:55 AM MOBILITY DEVELOPER): Limit nephrotoxins. Monitor creatinine. Avoid NSAIDS. Assessment [...] diet. Assessment & Plan (04/08/2021 10:17 AM MOBILITY DEVELOPER): Reviewed HgBA1C elevated at 10.6 on 04/01/21. [...] therapy. Assessment & Plan (03/07/2018 6:57 AM MOBILITY DEVELOPER): Continue pravastatin. He had myalgias on other [...] diet. Assessment & Plan (03/02/2017 6:53 AM MOBILITY DEVELOPER): Hypertension is controlled. Continue current regimen. Reviewed low sodium diet. Assessment & Plan (01/15/2017 6:44 AM CDT): Reviewed proper diet. Continue statin therapy. Hyperlipidemia 01/12/2012 Assessment & Plan (06/08/2024 4:46 AM MOBILITY DEVELOPER): Continue pravastatin. Order lipid panel at next [...] 05/28/2023 Assessment & Plan (03/08/2023 11:40 AM MOBILITY DEVELOPER): Agree with cataract surgery. He has 1st [...] 08/30/2017 Assessment & Plan (03/02/2017 10:48 AM MOBILITY DEVELOPER): Mood is improved. Monitor off medication. Impotence [...] 200. Assessment & Plan (03/07/2018 6:56 AM MOBILITY DEVELOPER): Continue current regimen. Advised annual eye exam.Limit nephrotoxins. Monitor creatinine. Avoid NSAIDS. Assessment & Plan (11/25/2017 10:16 AM CDT): Continue current regimen and add Januvia.Advised annual eye exam. Limit nephrotoxins. Monitor creatinine. Avoid NSAIDS. Assessment & Plan (01/15/2017 6:44 AM CDT): Continue current regimen. Advised annual eye exam. Reviewed proper diet. Continue statin therapy. Immunizations Immunization Administration Dates Next Due Influenza, Quad, Adjuvantate d, Intramuscular 02/22/2021 Influenza, Quadrivalent, Amelia l Culture-based MDCK, Preservative Free, Antibiotic Free, Intramuscular 02/06/2020 Influenza, Quadrivalent, Hig h Dose, Preservative Free, Intrr 12/21/2022,02/12/2022 Influenza, Quadrivalent, Spl it, Preservative Free, Intramuscular 01/14/2015 Influenza, Trivalent, High D ose, Split, Preservative Free, Intramuscular 01/17/2019 Influenza, Unspecified 01/17/2019(Deferred: Daisy ent Refused) Monstrous (J&J) SARS-CoV-2 Vaccination 06/14/2020, 06/14/2020 360T SARS-CoV-2 Monovalent Vaccination (12+ Yrs) PURPLE 03/05/2021,02/22/2021 [...] pur e alcohol) Occasional glass of wine. [facility] [employer] Answer Date Recorded In the past 12 months has [employer], gas, oil, or water [employer] threatened to shut off services in your [...] often do you attend chur ch or yazdanism services? Never 04/04/2024 Do you belong to any clubs o r organizations such as denominational groups, unions, fraternal or athletic groups, or [...] any time in the past 12 m [facility], were you homeless or living in a snf (including now)? No 04/04/2024 Personal Safety Answer Date Recorded Have you ever been in or are you currently in a harmful physical or emotional relationship or is someone making you feel afraid or unsafe? Denies 06/09/2023 Sex and Gender Information Value Date Recorded Sex Assigned at Not on file Legal Sex Male 4:46 PM MOBILITY DEVELOPER Gender Identity Not on file Sexual Orientation Not on file Last Filed Vital Signs Vital Sign Reading Time Taken Comments Blood Pressure 153/78 06/14/2024 2:58 PM MOBILITY DEVELOPER Pulse 81 06/14/2024 2:58 PM MOBILITY DEVELOPER Temperature 36.4 C (97.6 F) 06/14/2024 2:58 PM MOBILITY DEVELOPER Respiratory Rate 18 06/08/2024 9:51 AM MOBILITY DEVELOPER Oxygen Saturation 99% 06/08/2024 9:51 AM MOBILITY DEVELOPER Inhaled Oxygen Concentration - - Weight 93 kg (205 lb) 06/14/2024 2:58 PM MOBILITY DEVELOPER Height 175.3 cm (5' 9 ) 06/14/2024 2:58 PM MOBILITY DEVELOPER Body Mass Index 30.27 06/14/2024 2:58 PM MOBILITY DEVELOPER Plan of Treatment Not on file Goals Goal Patient Goal Type Associated Problems Recent Progress Patient-Stated? Author ZAK General Goal - Patient establishes care with [facility] ACO Care Management On track(2023 1:22 PM MOBILITY DEVELOPER) No Clarissa Luna RN Note: Problem: Lack of [facility] communication Interventions: - Provide coordination between [facility] company and patient. - Ensure [facility] has appropriate referral and orders to establish care with patient. - Follow up with patient to ensure initial visit was completed by [facility] and that a [facility] plan has been started. ZAK General Goal - Patient schedules and keeps appointments with all recommended providers ACO Care Management Improving( 1:22 PM MOBILITY DEVELOPER) No Clarissa Luna RN Note: Problem: Potential for medical complications [...] medication regimen. Medical Devices Implanted Type Area Staff Electrical Engineer Device Identifier Shelf Expiration Date Model / Serial / Lot [employer] Lens Iol Cna0t0.195 Clareon Uva Autonom Cna0t0.195 - [id number] - [id number] Implanted:Qty: 1 on 06/09/2023 by Higinio Connolly MD at [facility] Lens Right: Eye [employer] [id number] 10/27/2025 CNA0T0.19 5 / [id number] / [employer] Lens Iol Cna0t0.200 Suzie [employer]va Autonom Cna0t0.200 - [id number] - [id number] Implanted:Qty: 1 on 05/19/2023 by Higinio Connolly MD at [facility] Left: Eye [employer] [id number] 10/06/2025 CNA0T0.20 0 / [id number] / Procedures Procedure Name Priority Date/Time Associated Diagnosis Comments EGFR Routine 06/14/2024 3:48 PM MOBILITY DEVELOPER GABRIELA (acute kidney injury) RENAL FUNCTION PANEL Routine 06/14/2024 3:48 PM MOBILITY DEVELOPER GABRIELA (acute kidney injury) URINALYSIS AND REFLEX TO MICROSCOPIC Routine 06/08/2024 10:47 AM MOBILITY DEVELOPER 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 chronic kidney disease (HCC) Hypertension, essential Secondary hyperparathyroidism of renal origin Stage 3 chronic kidney disease, unspecified whether stage 3a or 3b CKD (HCC) Primary hypertension Vitamin D deficiency Type 2 diabetes mellitus with stage 3a chronic kidney disease, with long-term current use of insulin ([facility]) Fatigue, unspecified type GABRIELA (acute kidney injury) EGFR Routine 06/08/2024 10:44 AM MOBILITY DEVELOPER 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 chronic kidney disease (HCC) Hypertension, essential Secondary hyperparathyroidism of renal origin Stage 3 chronic kidney disease, unspecified whether stage 3a or 3b CKD (HCC) Primary hypertension Vitamin D deficiency Type 2 diabetes mellitus with stage 3a chronic kidney disease, with long-term current use of insulin (HCC) Fatigue, unspecified type GABRIELA (acute kidney injury) DIFFERENTIAL AUTO Routine 06/08/2024 10:44 AM MOBILITY DEVELOPER 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 chronic kidney disease [...] RENAL FUNCTION PANEL Routine 06/08/2024 10:44 AM MOBILITY DEVELOPER 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 chronic kidney disease [...] D 25 HYDROXY Routine 06/08/2024 10:44 AM MOBILITY DEVELOPER 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 chronic kidney disease [...] WITH AUTO DIFFERENTIAL Routine 06/08/2024 10:44 AM MOBILITY DEVELOPER 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 chronic kidney disease (HCC) Hypertension, essential Secondary hyperparathyroidism of renal origin Stage 3 chronic kidney disease, unspecified whether stage 3a or 3b CKD (HCC) Primary hypertension Vitamin D deficiency Type 2 diabetes mellitus with stage 3a chronic kidney disease, with long-term current use of insulin (HCC) Fatigue, unspecified type GABRIELA (acute kidney injury) PTH Routine 06/08/2024 10:44 AM MOBILITY DEVELOPER 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 chronic kidney disease [...] RATIO, URINE, RANDOM Routine 06/08/2024 10:44 AM MOBILITY DEVELOPER 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 chronic kidney disease (HCC) Hypertension, essential Secondary hyperparathyroidism of renal origin Stage 3 chronic kidney disease, unspecified whether stage 3a or 3b CKD (HCC) Primary hypertension Vitamin D deficiency Type 2 diabetes mellitus with stage 3a chronic kidney disease, with long-term current use of insulin (HCC) Fatigue, unspecified type GABRIELA (acute kidney injury) EGFR STAT 04/25/2024 9:45 AM MOBILITY DEVELOPER Prostate cancer (HCC) VITAMIN D 25 HYDROXY Routine 04/25/2024 9:45 AM MOBILITY DEVELOPER Prostate cancer (HCC) TOTAL TESTOSTERONE Routine 04/25/2024 9:45 AM MOBILITY DEVELOPER Prostate cancer (HCC) HEMOGLOBIN A1C Routine 04/25/2024 9:45 AM MOBILITY DEVELOPER Prostate cancer (HCC) VITAMIN B12 Routine 04/25/2024 9:45 AM MOBILITY DEVELOPER Prostate cancer (HCC) LACTATE DEHYDROGENASE Routine 04/25/2024 9:45 AM MOBILITY DEVELOPER Prostate cancer (HCC) COMPREHENSIVE METABOLIC PANEL STAT 04/25/2024 9:45 AM MOBILITY DEVELOPER Prostate cancer (HCC) PSA DIAGNOSTIC Routine 04/25/2024 9:45 AM MOBILITY DEVELOPER Prostate cancer (HCC) DIFFERENTIAL AUTO Routine 04/25/2024 9:40 AM MOBILITY DEVELOPER Prostate cancer (HCC) CBC WITH AUTO DIFFERENTIAL Routine 04/25/2024 9:40 AM MOBILITY DEVELOPER Prostate cancer (HCC) DEXA TBS AXIAL SKELETON BONE DENSITY 1 OR MORE SITES Schedule Routine, Read Routine (OP Routine) 04/24/2024 11:56 AM MOBILITY DEVELOPER Age-related osteoporosis without current pathological fracture NM BONE IMAGING WHOLE BODY Schedule Routine, Read Routine (OP Routine) 04/14/2024 3:16 PM MOBILITY DEVELOPER Prostate cancer (HCC) CT CHEST ABDOMEN PELVIS WO CONTRAST Schedule Routine, Read Routine (OP Routine) 04/14/2024 2:18 PM MOBILITY DEVELOPER Prostate cancer (HCC) LIPID PANEL Routine 03/08/2023 11:55 AM MOBILITY DEVELOPER Hyperlipidemia, unspecified hyperlipidemia type ALBUMIN CREATININE RATIO, URINE Routine 01/01/2023 10:40 AM CDT Type 2 diabetes mellitus with stage 3a chronic kidney disease, with long-term current use of insulin (HCC) DIABETES EYE EXAM Routine 06/29/2018 from Last 3 Months or Most Recently Relevant to Health Maintenance Results * (ABNORMAL) eGFR (06/14/2024 3:48 PM MOBILITY DEVELOPER) eGFR 26(L) >=60 mL/min/1. 73 m2 Comment: [...] last reviewed 2021. Blood 06/14/2024 3:48 PM MOBILITY DEVELOPER 06/14/2024 4:07 PM MOBILITY DEVELOPER us Lin Guerrero MD LAB BLOOD ORDERABLES Final Resul t [facility] Department [place] [address] * (ABNORMAL) Renal function panel (06/14/2024 3:48 PM MOBILITY DEVELOPER) Sodium 143 135 - 145 mmol/L Potassium, pl 5.0(H) 3.3 - 4.9 mmol/L [facility] Chloride 105 97 - 110 mmol/L [facility] CO2 28 22 - 32 mmol/L [facility] Anion gap 10 2 - 15 mmol/L [facility] BUN 48(H) 6 - 25 mg/dL [facility] Creatinine 2.42(H) 0.80 - 1.30 mg/dL [facility] Glucose 152 70 - 199 mg/dL [facility] [...] 2022. Calcium 8.7 8.5 - 10.3 mg/dL [facility] Phosphorus, pl 3.1 2.3 - 4.5 mg/dL [facility] Albumin 3.9 3.5 - 5.0 g/dL [facility] Blood 06/14/2024 3:48 PM MOBILITY DEVELOPER 06/14/2024 4:03 PM MOBILITY DEVELOPER us Lin Guerrero MD LAB BLOOD ORDERABLES Final Resul t [facility] Department [place] [address] * Urinalysis reflex to microscopic (06/08/2024 10:47 AM MOBILITY DEVELOPER) Color, ur Straw Yellow Clarity, ur Clear Clear [facility] Specific gravity, ur 1.012 1.003 - 1.030 [facility] pH, urine 6.0 [facility] Comment: Interpretive Data U rine pH is affected by diet, medications, systemic acid-base disturbances, and renal tubular function. pH may affect urinary stone formation. For example, urine pH below 6.0 may help reduce the tendency for calcium phosphate stones and pH greater than 6.0 may reduce the tendency for uric acid stone formation. Source: [facility] Current Interpretive Data was last revised on 2017 Protein, ur ql Trace Negative [facility] Glucose, ur ql Negative Negative [facility] Ketones, ur Negative Negative [facility] Bilirubin, ur Negative Negative [facility] Blood, ur Negative Negative [facility] Urobilinogen, ur <2.0 <2.0 mg/dL [facility] Nitrite, ur Negative Negative [facility] Leukocyte esterase, ur Negative Negative [facility] UA reflex comment Reflex conditions for microscopic UA not met. [facility] Urine 06/08/2024 10:4 7 AM MOBILITY DEVELOPER 06/08/2024 11:41 AM MOBILITY DEVELOPER us Lin Guerrero MD LAB URINE ORDERABLES Final Resul t [facility] Department [place] [address] * (ABNORMAL) eGFR (06/08/2024 10:44 AM MOBILITY DEVELOPER) eGFR 22(L) >=60 mL/min/1. 73 m2 Comment: [...] reviewed 2021. Blood 06/08/2024 10:4 4 AM MOBILITY DEVELOPER 06/08/2024 11:23 AM MOBILITY DEVELOPER us Lin Guerrero MD LAB BLOOD ORDERABLES Final Resul t [facility] Department [place] [address] * (ABNORMAL) Differential, auto (06/08/2024 10:44 AM MOBILITY DEVELOPER) Neutrophil abs 7.8(H) 1.5 - 6.5 K/cumm Imm gran abs 0.1 0.0 - 0.1 K/cumm [facility] Lymphocyte abs 1.9 0.8 - 3.3 K/cumm [facility] Monocyte abs 1.0(H) 0.2 - 0.8 K/cumm [facility] Eosinophil abs 0.1 0.0 - 0.5 K/cumm [facility] Basophil abs 0.0 0.0 - 0.1 K/cumm [facility] Neutrophil pct 71.1 % [facility] Comment: Interpretive Data Percent cell count reference ranges are not reported, since discordance with absolute values may lead to misinterpretation of CBC data. Current Interpretive Data was last revised on 2017. Imm gran pct 0.8 % [facility] Comment: Interpretive Data Percent cell count reference ranges are not reported, since discordance with absolute values may lead to misinterpretation of CBC data. Current Interpretive Data was last revised on 2017. Lymphocyte pct 17.1 % [facility] Comment: Interpretive Data Percent cell count reference ranges are not reported, since discordance with absolute values may lead to misinterpretation of CBC data. Current Interpretive Data was last revised on 2017. Monocyte pct 9.3 % [facility] Comment: Interpretive Data Percent cell count reference ranges are not reported, since discordance with absolute values may lead to misinterpretation of CBC data. Current Interpretive Data was last revised on 2017. Eosinophil pct 1.3 % [facility] Comment: Interpretive Data Percent cell count reference ranges are not reported, since discordance with absolute values may lead to misinterpretation of CBC data. Current Interpretive Data was last revised on 2017. Basophil pct 0.4 % [facility] Comment: Interpretive Data Percent cell count reference ranges are not reported, since discordance with absolute values may lead to misinterpretation of CBC data. Current Interpretive Data was last revised on 2017. Blood 06/08/2024 10:4 4 AM MOBILITY DEVELOPER 06/08/2024 11:23 AM MOBILITY DEVELOPER Lin Guerrero MD LAB BLOOD ORDERABLES Final Resul t Performing Organization Address City/[facility] Co de Phone Number [facility] One [facility] [place] [address] * (ABNORMAL) CBC with auto differential (06/08/2024 10:44 AM MOBILITY DEVELOPER) WBC 11.0(H) 3.8 - 9.9 K/cumm Hgb 12.0(L) 13.0 - 17.5 g/dL [facility] Hct 36.9(L) 38.9 - 50.3 % [facility] Plt 357 150 - 400 K/cumm [facility] MPV 9.8 9.1 - 12.3 fL [facility] RBC 4.27(L) 4.30 - 5.80 M/cumm [facility] MCV 86.4 81.3 - 96.4 fL [facility] MCH 28.1 27.1 - 33.3 pg [facility] MCHC 32.5 32.3 - 35.7 g/dL [facility] RDW CV 14.1 11.1 - 14.9 % [facility] RDW SD 44.2 35.7 - 48.1 fL [facility] NRBC abs 0.00 0.00 - 0.01 K/cumm [facility] Blood 06/08/2024 10:4 4 AM MOBILITY DEVELOPER 06/08/2024 11:23 AM MOBILITY DEVELOPER Lin Guerrero MD LAB BLOOD ORDERABLES Final Resul t [facility] [place] [address] * (ABNORMAL) Protein / creatinine ratio, urine, random (06/08/2024 10:44 AM MOBILITY DEVELOPER) [facility] Protein, ur, quant 21.3 mg/dL Comment: Interpretive Data No reference range established. Current interpretive data was last revised 2018. Creatinine Ur 52.2 mg/dL [facility] Comment: Interpretive Data No reference range established. Current interpretive data was last revised 2018. Protein/creatinin e ratio 408.0(H) 0.0 - 180.0 mg/g CR [facility] Urine 06/08/2024 10:4 4 AM MOBILITY DEVELOPER 06/08/2024 11:23 AM MOBILITY DEVELOPER us Lin Guerrero MD LAB URINE ORDERABLES Final Resul t Performing Organization Address City/[facility] Co de Phone Number [facility] Department [place] [address] * Vitamin D 25 hydroxy (06/08/2024 10:44 AM MOBILITY DEVELOPER) [facility] Vitamin D 25-OH 42 30 - 80 ng/mL Blood 06/08/2024 10:4 4 AM MOBILITY DEVELOPER 06/08/2024 11:23 AM MOBILITY DEVELOPER us Lin Guerrero MD LAB BLOOD ORDERABLES Final Resul t Performing Organization Address City/[facility] Co de Phone Number [facility] Department [place] [address] * (ABNORMAL) PTH (06/08/2024 10:44 AM MOBILITY DEVELOPER) [facility] PTH 78(H) 15 - 65 pg/mL Blood 06/08/2024 10:4 4 AM MOBILITY DEVELOPER 06/08/2024 11:23 AM MOBILITY DEVELOPER us Lin Guerrero MD LAB BLOOD ORDERABLES Final Resul t Performing Organization Address [facility]/ZIP Co de Phone Number [facility] Department [place] [address] * (ABNORMAL) Renal function panel (06/08/2024 10:44 AM MOBILITY DEVELOPER) Sodium 142 135 - 145 mmol/L Potassium, pl 4.8 3.3 - 4.9 mmol/L [facility] Chloride 107 97 - 110 mmol/L [facility] CO2 27 22 - 32 mmol/L [facility] Anion gap 8 2 - 15 mmol/L [facility] BUN 60(H) 6 - 25 mg/dL [facility] Creatinine 2.72(H) 0.80 - 1.30 mg/dL [facility] Glucose 94 70 - 199 mg/dL [facility] 2022. Calcium 9.0 8.5 - 10.3 mg/dL [facility] Phosphorus, pl 3.5 2.3 - 4.5 mg/dL [facility] Albumin 3.8 3.5 - 5.0 g/dL [facility] Blood 06/08/2024 10:4 4 AM MOBILITY DEVELOPER 06/08/2024 11:23 AM MOBILITY DEVELOPER Lin Guerrero MD LAB BLOOD ORDERABLES Final Resul t [facility] [place] [address] * (ABNORMAL) eGFR (04/25/2024 9:45 AM MOBILITY DEVELOPER) Pathologist [facility] eGFR 28(L) >=60 mL/min/1. 73 m2 Comment: [...] last reviewed 2021. Blood 04/25/2024 9:45 AM MOBILITY DEVELOPER 04/25/2024 9:51 AM MOBILITY DEVELOPER us Gautam Cope MD LAB BLOOD ORDERABLES Final Resul t Performing Organization Address City/[facility] Co de Phone Number [facility] [place] [address] * (ABNORMAL) Vitamin D 25 hydroxy (04/25/2024 9:45 AM MOBILITY DEVELOPER) Pathologist [facility] Vitamin D 25-OH 22(L) 30 - 80 ng/mL Blood 04/25/2024 9:45 AM MOBILITY DEVELOPER 04/25/2024 9:51 AM MOBILITY DEVELOPER us Gautam Cope MD LAB BLOOD ORDERABLES Final Resul t Performing Organization Address City/[facility]/ZIP Co de Phone Number [facility] [place] [address] * (ABNORMAL) Total testosterone (04/25/2024 9:45 AM MOBILITY DEVELOPER) Testosterone <5.0(L) 193.0 - 740.0 ng/dL Blood 04/25/2024 9:45 AM MOBILITY DEVELOPER 04/25/2024 11:20 AM MOBILITY DEVELOPER us Gautam Cope MD LAB BLOOD ORDERABLES Final Resul t Performing Organization Address City/[facility] Co de Phone Number [facility] Department [place] [address] * PSA diagnostic (04/25/2024 9:45 AM MOBILITY DEVELOPER) PSA-Total <0.02 <=6.20 ng/mL Comment: Interpretive Data [...] last revised 21. Blood 04/25/2024 9:45 AM MOBILITY DEVELOPER 04/25/2024 9:51 AM MOBILITY DEVELOPER us Gautam Cope MD LAB BLOOD ORDERABLES Final Resul t Performing Organization Address [facility] Co de Phone Number [facility] Department [place] [address] * Lactate dehydrogenase (LD) (04/25/2024 9:45 AM MOBILITY DEVELOPER) Lactate dehydrogenase (LDH) 157 100 - 250 Units/L Blood 04/25/2024 9:45 AM MOBILITY DEVELOPER 04/25/2024 9:51 AM MOBILITY DEVELOPER us Gautam Cope MD LAB BLOOD ORDERABLES Final Resul t Performing Organization Address [facility] de Phone Number [facility] [place] [address] * (ABNORMAL) Hemoglobin A1c (04/25/2024 9:45 AM MOBILITY DEVELOPER) [facility] Hgb A1C 8.1(H) 4.0 - 5.6 % Estimated Average Glucose 186 mg/dL [facility] Comment: The ADA recommends reporting an estimated Average Glucose (eAG) with all Hemoglobin A1c results using the equation derived from a study of 507 normal and diabetic adults. Minority populations were underrepresented and children were not included. (Diabetes Care 2020; 43(S1): S66-S76). The eAG is not equivalent to a fasting glucose. Blood 04/25/2024 9:45 AM MOBILITY DEVELOPER 04/25/2024 9:51 AM MOBILITY DEVELOPER us Gautam Cope MD LAB BLOOD ORDERABLES Final Resul t Performing Organization Address [facility] Co de Phone Number [facility] [place] [address] * Vitamin B12 (04/25/2024 9:45 AM MOBILITY DEVELOPER) [facility] Vitamin B12 390 230 - 1,250 pg/mL Blood 04/25/2024 9:45 AM MOBILITY DEVELOPER 04/25/2024 11:20 AM MOBILITY DEVELOPER us Gautam Cope MD LAB BLOOD ORDERABLES Final Resul t Performing Organization Address [facility] [place] [address] * (ABNORMAL) Comprehensive metabolic panel (04/25/2024 9:45 AM MOBILITY DEVELOPER) [facility] Sodium 142 135 - 145 mmol/L Potassium, pl 4.5 3.3 - 4.9 mmol/L [facility] Chloride 106 97 - 110 mmol/L [facility] CO2 29 22 - 32 mmol/L [facility] Anion gap 7 2 - 15 mmol/L [facility] BUN 41(H) 6 - 25 mg/dL [facility] Creatinine 2.25(H) 0.80 - 1.30 mg/dL [facility] Glucose 201(H) 70 - 199 mg/dL [facility] 2022. Calcium 9.2 8.5 - 10.3 mg/dL [facility] Bilirubin, total 0.3 0.1 - 1.2 mg/dL [facility] Protein, pl 6.7 6.5 - 8.5 g/dL [facility] Albumin 3.9 3.5 - 5.0 g/dL [facility] Alk phos 128 40 - 130 Units/L [facility] ALT 10 7 - 55 Units/L [facility] AST 12 10 - 50 Units/L [facility] Blood 04/25/2024 9:45 AM MOBILITY DEVELOPER 04/25/2024 9:51 AM MOBILITY DEVELOPER us Gautam Cope MD LAB BLOOD ORDERABLES Final Resul t Performing Organization Address City/State/[facility] Co de Phone Number [facility] One [facility] [place] [address] * (ABNORMAL) Differential, auto (04/25/2024 9:40 AM MOBILITY DEVELOPER) Neutrophil abs 9.1(H) 1.5 - 6.5 K/cumm Comment:Testing performed by : [facility], [address] [place] [phone] Lymphocyte abs 1.6 0.8 - 3.3 K/cumm [facility] Comment:Testing performed by : [facility], [address] [place] [phone] Monocyte abs 0.9(H) 0.2 - 0.8 K/cumm [facility] Comment:Testing performed by : [facility], [address] [place] [phone] Eosinophil abs 0.2 0.0 - 0.5 K/cumm [facility] Comment:Testing performed by : [facility], [address] [place] [phone] Basophil abs 0.1 0.0 - 0.1 K/cumm [facility] Comment:Testing performed by : [facility], [address] [place] [phone] Neutrophil pct 76.7 % [facility] Comment: Interpretive Data Percent cell count reference ranges are not reported, since discordance with absolute values may lead to misinterpretation of CBC data. Current Interpretive Data was last revised on 2017. Testing performed by: [facility][Note 2] Lab, [address] [place] [phone] Lymphocyte pct 13.2 % [facility] Comment: Interpretive Data Percent cell count reference ranges are not reported, since discordance with absolute values may lead to misinterpretation of CBC data. Current Interpretive Data was last revised on 2017. Testing performed by: [facility], [address] [place] [phone] Monocyte pct 7.1 % [facility] Comment: Interpretive Data Percent cell count reference ranges are not reported, since discordance with absolute values may lead to misinterpretation of CBC data. Current Interpretive Data was last revised on 2017. Testing performed by: [facility], [address] [place] [phone] Eosinophil pct 1.8 % [facility] Comment: Interpretive Data Percent cell count reference ranges are not reported, since discordance with absolute values may lead to misinterpretation of CBC data. Current Interpretive Data was last revised on 2017. Testing performed by: [facility], [address] [place] [phone] Basophil pct 1.2 % [facility] Comment: Interpretive Data Percent cell count reference ranges are not reported, since discordance with absolute values may lead to misinterpretation of CBC data. Current Interpretive Data was last revised on 2017. Testing performed by: [facility], [address] [place] [address] Blood 04/25/2024 9:40 AM MOBILITY DEVELOPER 04/25/2024 9:45 AM MOBILITY DEVELOPER us Gautam Cope MD LAB BLOOD ORDERABLES Final Resul t [facility] One [facility] [place] [address] * (ABNORMAL) CBC with auto differential (04/25/2024 9:40 AM MOBILITY DEVELOPER) WBC 11.9(H) 3.8 - 9.9 K/cumm Comment:Testing performed by : [facility], [address] [place] [address] Hgb 12.2(L) 13.0 - 17.5 g/dL [facility] Comment:Testing performed by : [facility], [address] [place] [address] Hct 38.8(L) 38.9 - 50.3 % [facility] Comment:Testing performed by : [facility], [address] [place] [address] Plt 369 150 - 400 K/cumm [facility] Comment:Testing performed by : [facility], [address] [place] [address] MPV 7.7 6.8 - 10.4 fL [facility] Comment:Testing performed by : [facility], [address] [place] [address] RBC 4.38 4.30 - 5.80 M/cumm [facility] Comment:Testing performed by : [facility], [address] [place] [address] MCV 88.6 81.3 - 96.4 fL [facility] Comment:Testing performed by : [facility], [address] [place], [place] [phone] MCH 27.8 27.1 - 33.3 pg [facility] Comment:Testing performed by : [facility][Note 2] Lab, [address] [place], [place] [phone] MCHC 31.3(L) 32.3 - 35.7 g/dL [facility] Comment:Testing performed by : [facility] [place][Note 2] Lab, [address] [place], [place] [phone] RDW CV 14.7 11.1 - 14.9 % [facility] Comment:Testing performed by : [facility] [place][Note 2] Lab, [address] [place], [place] [phone] NRBC abs 0.00 0.00 - 0.01 K/cumm [facility] Comment:Testing performed by : [facility] [place][Note 2] Lab, [address] [place], [place] [phone] Blood 04/25/2024 9:40 AM MOBILITY DEVELOPER 04/25/2024 9:45 AM MOBILITY DEVELOPER us Gautam Cope MD LAB BLOOD ORDERABLES Final Resul t [facility] Department [place] [address] * Dexa TBS Axial Skeleton Bone Density 1 or more sites (04/24/2024 11:56 AM MOBILITY DEVELOPER) Anatomical Region Laterality Modality Wrist, Body N/A Radiographic Roberta ging Narrative 04/24/2024 12:52 PM MOBILITY DEVELOPER Patient Name: David Wei Date of : 1940 Date of scan: 04/24/2024 Bone mineral density was performed on a [employer] Discovery Densitometer. Based on machine cross-calibration and [...] mineral density scan were prepared by Alisha Souza)(CBDT)who is accredited by the International Society of Clinical Densitometry. The overall patient assessment and scan interpretation were performed by Daquan George M.D. who is certified by the International Society of Clinical Densitometry. [id number] us Daquan George MD IMG DXA PROCEDURES Final Result * NM bone scan whole body (04/14/2024 3:16 PM MOBILITY DEVELOPER) Anatomical Region Laterality Modality N/A Nuclear Medicine 04/14/2024 4:21 PM MOBILITY DEVELOPER Impressions 04/14/2024 5:00 PM MOBILITY DEVELOPER No scintigraphic evidence of new or progressive metastatic osseous disease. Dictated by: Kraig Conte M.D. The radiology attending physician has personally reviewed this study, and had reviewed and/or edited this written report and agrees with it. Electronically signed by: Sandra Davila M.D. Narrative 04/14/2024 5:00 PM MOBILITY DEVELOPER EXAMINATION: BONE SCINTIGRAPHY (WHOLE-BODY) DATE OF STUDY: 04/14/2024 RADIOPHARMACEUTICAL: 20.68 mCi Tc-99m MDP i.v. HISTORY: 83-year-old man with metastatic prostate cancer ([place] 4+3) diagnosed in 1999 status post radical [...] HISTORY: 83-year-old man with metastatic prostate cancer ([place] 4+3) diagnosed in 1999 status post radical [...] it. Electronically signed by: Sandra Davila M.D. us Gautam Cope MD IMG NM PROCEDURES Final Result * CT chest abdomen pelvis without contrast (04/14/2024 2:18 PM MOBILITY DEVELOPER) Anatomical Region Laterality Modality Body N/A Computed Tomogra phy 04/14/2024 2:39 PM MOBILITY DEVELOPER Impressions 04/14/2024 2:39 PM MOBILITY DEVELOPER 1. Unchanged subtle groundglass opacities in the [...] Meeta Seals M.D. Narrative 04/14/2024 2:39 PM MOBILITY DEVELOPER EXAMINATION: CT CHEST ABDOMEN PELVIS WO CONTRAST [...] * (ABNORMAL) Lipid panel (03/08/2023 11:55 AM MOBILITY DEVELOPER) Cholesterol 193 30 - 199 mg/dL [facility] Comment: Interpretive [...] revised on 2017. Triglycerides 250(H) <=149 mg/dL [facility] Comment: Interpretive Data Ages [...] on 2017. HDL 36(L) >=40 mg/dL [facility] Comment: Interpretive Data Ages [...] 2017. LDL, calculated 107 <=129 mg/dL [facility] Comment: Interpretive Data Ages [...] [facility] Blood 03/08/2023 11:5 5 AM MOBILITY DEVELOPER 03/08/2023 3:48 PM MOBILITY DEVELOPER us Kraig Ching MD LAB BLOOD ORDERABLES Final Re sult [facility] Department [place] [address] * (ABNORMAL) Albumin Creatinine Ratio, Urine (01/01/2023 10:40 AM CDT) Albumin Ur 227.3 mg/L [facility] Comment: Interpretive Data No reference range established. Current interpretive data was last revised 2018. Creatinine Ur 66.5 mg/dL [facility] Comment: Interpretive Data No reference range established. Current interpretive data was last revised 2018. Albumin Creatinine Ratio, Ur 342(H) 1 - 29 mg/g [facility] Urine 01/01/2023 10:4 0 AM CDT 01/01/2023 10:45 AM CDT Kraig Ching MD LAB URINE ORDERABLES Final Re sult [facility] One [facility] [place] [address] * DIABETES EYE EXAM (06/29/2018) Diabetic Eye Exam Normal Historical Provider HEALTH MAINTENANCE Final Result from Last 3 Months or Most Recently Relevant to Health Maintenance Insurance [employer] MEDICARE [facility] MEDICARE [facility] MEDICARE [facility] MEDICARE Advance Directives For more information, please contact: [phone] * Full Code (Latest Code Status on File) Date Activated Date Inactivated Comments 12/16/2017 2:44 PM 12/16/2017 7:18 PM Care Teams Repair Armature Winder Helper Relationship Specialty Start Date End Date Kraig Ching MD [address] [facility] [address] [place] [address] PCP - General 07/10/16 Gautam Cope MD [address] [facility] [address] [place] [address] Medical Oncologist/Hydrotel Operator Medical Oncology 08/18/18 Tramaine Roe MD [address] [facility] [address] [place] [address] Referring Physician Urology 08/18/18 Sukhwinder Uribe MD [address] [facility] [address] [place] [address] Consulting Physician Urology 08/18/18 Shay Guillermo MD [address] [facility] [address] [place] [address] Referring Physician Urology 08/18/18 Marsha Landis, RN Registered Nurse 11/17/18
--- OUTSIDE RECORDS SUMMARY | 2024-07-01 09:24 | XMS_ITS | Encounter Summary ---
Author Organization [facility] Address [address] [place] [address] Phone Care Team Providers Care Flat Hammerer Name Role Phone Kraig Ching MD Primary Care Provider [phone] Gautam Cope MD Unavailable Tramaine Roe MD Unavailable [phone] Sukhwinder Uribe MD Unavailable Shay Guillermo MD Unavailable [phone] Marsha Landis RN Unavailable Unavailab Clarissa Harry RN Unavailable [phone] Encounter Details Date Type Department Care Team (Late st Contact Info) Description 12/09/2021 Telephone [facility] Oncology [address] 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 Gender Identity Not on file Sexual Orientation Not on file documented as of this encounter Functional Status documented as of this encounter Plan of Treatment Not on file documented as of this encounter Visit Diagnoses Not on filedocumented in this encounter Care Teams Flat Hammerer Relationship Specialty Start Date End Date Kraig Ching MD [address] [place] [address] PCP - General 07/10/16 Gautam Cope MD [address] [place] [address] Medical Oncologist/Gas Engine Mechanic Medical Oncology 08/18/18 Tramaine Roe MD [address] [place] [address] Referring Physician Urology 08/18/18 Sukhwinder Uribe MD [address] [place] [address] Consulting Physician Urology 08/18/18 Shay Guillermo MD [address] [place] [address] Referring Physician Urology 08/18/18 Marsha Landis, RN Registered Nurse 11/17/18 Clarissa Luna RN [address] [place] [address] [address] [place] [address] Digital Ad Trafficker 04/04/24 04/26/24 documented as of this encounter
[2024-07-01 09:32] LABS: Influenza A QL RT-PCR Negative (Negative); Influenza B QL RT-PCR Negative (Negative); RSV RNA, RT-PCR Negative (Negative); SARS-CoV-2 RNA PCR Negative (Negative)
== END 2024-07-01 11:51 | disposition home or self-care (01) ==
PROVIDERS: Emergency Provider Emergency Medicine; PCP Internal Medicine
DX: R06.02 Shortness of breath (principal); J44.9 Chronic obstructive pulmonary disease, unspecified; E11.22 Type 2 diabetes mellitus with diabetic chronic kidney disease; I12.9 Hypertensive chronic kidney disease with stage 1 through stage 4 chronic kidney disease, or unspecified chronic kidney disease; N18.30 Chronic kidney disease, stage 3 unspecified; I48.0 Paroxysmal atrial fibrillation; E78.00 Pure hypercholesterolemia, unspecified; K21.9 Gastro-esophageal reflux disease without esophagitis; Z85.46 Personal history of malignant neoplasm of prostate; Z85.830 Personal history of malignant neoplasm of bone; Z92.21 Personal history of antineoplastic chemotherapy; Z90.49 Acquired absence of other specified parts of digestive tract; Z90.79 Acquired absence of other genital organ(s); Z79.4 Long term (current) use of insulin; Z79.899 Other long term (current) drug therapy; Z79.84 Long term (current) use of oral hypoglycemic drugs
CPT/HCPCS: 36415; 71046; 80053; 83880; 85025; 87637; 93005; 99284

== ENCOUNTER 2024-07-20 20:03 | Emergency (ER) | payer MEDICARE, SELFPAY ==
--- OUTSIDE RECORDS SUMMARY | 2024-07-20 20:06 | XMS_ITS | Clinical Summary ---
Author Organization [facility] Address [address] [place] [address] Care Team Providers Care Clinical Asst Name Role Phone Unavailable Primary Care Provider [...] Vaccine ( - 2023-2 5 season) 2023 Meningococcal B Vaccine Aged Out No l onger eligible based on patient's age to complete this topic Meningococcal Vaccine Aged Out No tonio tahira eligible based on patient's age to complete this topic RSV Immunizations Under 20 Months Aged Out No longer eligible based on patient's age to complete this topic
--- OUTSIDE RECORDS SUMMARY | 2024-07-20 20:06 | XMS_ITS ---
Author Organization [facility] Address [address] [place] [address] Care Team Providers Care Studio Operations Engineer In Charge Name Role Phone Kraig Ching MD Primary Care Provider [phone] Gautam Cope MD Unavailable Tramaine Roe MD Unavailable [phone] Sukhwinder Uribe MD Unavailable [phone] Shay Guillermo MD Unavailable [phone] Marsha Landis RN Unavailable Unavailab Active Problems Problem Noted Date Diagnosed Date Statin myopathy 06/08/2024 Essential hypertension 05/30/2024 Type 2 diabetes mellitus wit h stage 3b chronic kidney disease, with long-term current use of insulin 05/30/2024 Assessment & Plan (06/08/2024 4:46 AM ANIMATION DIRECTOR): Continue current regimen.Limit nephrotoxins.Reviewed creatinine. Avoid NSAIDS. [...] 03/08/2023 Assessment & Plan (06/08/2024 4:46 AM ANIMATION DIRECTOR): Hypertension is controlled. Continue current regimen. Assessment & Plan (10/05/2023 12:54 PM CDT): Hypertension is controlled. Decrease carvedilol to 12.5 mg. Assessment & Plan (03/08/2023 7:11 AM ANIMATION DIRECTOR): Hypertension is controlled. Continue current regimen. 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 Avoid NSAIDS. Assessment & Plan (10/05/2023 5:50 AM CDT): Continue current regimen.Limit nephrotoxins.Reviewed creatinine. Avoid NSAIDS. Assessment & Plan (03/08/2023 7:12 AM ANIMATION DIRECTOR): Continue current regimen.Limit nephrotoxins.Reviewed creatinine. Avoid NSAIDS. CKD (chronic kidney disease) 03/08/2022 Assessment & Plan (06/08/2024 4:45 AM ANIMATION DIRECTOR): Limit nephrotoxins. Monitor creatinine. Avoid NSAIDS.Follow with Nephrology. 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 chronic kidney disease 2021 Gastroesophageal reflux disease 04/08/2021 Assessment & Plan (03/08/2023 11:17 AM ANIMATION DIRECTOR): Reviewed dietary modifications. Continue PPI. Assessment & Plan (08/18/2022 6:36 AM CDT): Reviewed dietary modifications. Continue PPI. Assessment & Plan (02/12/2022 6:03 AM CDT): Reviewed dietary modifications. Continue PPI. Assessment & Plan (04/08/2021 5:55 AM ANIMATION DIRECTOR): Reviewed dietary modifications. Continue PPI. 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 Continue home PT exercises. Advised using a walker. Assessment & Plan (08/18/2022 11:47 AM CDT): Continue oxycodone. Continue home PT exercises. Advised using a walker. Assessment & Plan (02/12/2022 11:41 AM CDT): Continue oxycodone. Continue home PT exercises. A prescription for a walker. Assessment & Plan (04/08/2021 5:55 AM ANIMATION DIRECTOR): Continue oxycodone. Continue home PT exercises. Continue walker. Assessment & Plan (12/26/2020 10:48 AM CDT): Continue oxycodone. Script for walker. Assessment & Plan (09/26/2020 11:29 AM CDT): Continue ROM exercises and follow with Pain Management. Refill oxycodone as needed. Prostate cancer 09/06/2018 Assessment & Plan (06/08/2024 4:46 AM ANIMATION DIRECTOR): Follow with Oncology. Continue Zytiga. Assessment & [...] 01/25/2018 Assessment & Plan (03/07/2018 6:54 AM ANIMATION DIRECTOR): Hypertension is controlled. Continue current regimen. CHF [...] creatinine. Assessment & Plan (04/08/2021 5:54 AM ANIMATION DIRECTOR): Hypertension is controlled. Continue current regimen.Limit nephrotoxins. [...] NSAIDS. Assessment & Plan (03/07/2018 6:55 AM ANIMATION DIRECTOR): Hypertension is controlled. Continue current regimen. Limit nephrotoxins. Monitor creatinine. Avoid NSAIDS. Assessment & Plan (11/25/2017 7:09 AM CDT): Limit nephrotoxins. Monitor creatinine. Avoid NSAIDS. Duodenal ulcer 11/25/2017 Assessment & Plan (11/25/2017 10:16 AM CDT): Reviewed GI note . Continue pantoprazole. Avoid NSAIDS. Refer for EGD. PAF (paroxysmal atrial fibrillation) 10/22/2017 Assessment & Plan (03/07/2018 6:54 AM ANIMATION DIRECTOR): Continue rate control. Continue anticoagualtion. Anticipate starting [...] NSAIDS. Assessment & Plan (03/07/2018 6:55 AM ANIMATION DIRECTOR): Limit nephrotoxins. Monitor creatinine. Avoid NSAIDS. Assessment [...] diet. Assessment & Plan (04/08/2021 10:17 AM ANIMATION DIRECTOR): Reviewed HgBA1C elevated at 10.6 on 04/01/21. [...] therapy. Assessment & Plan (03/07/2018 6:57 AM ANIMATION DIRECTOR): Continue pravastatin. He had myalgias on other [...] diet. Assessment & Plan (03/02/2017 6:53 AM ANIMATION DIRECTOR): Hypertension is controlled. Continue current regimen. Reviewed low sodium diet. Assessment & Plan (01/15/2017 6:44 AM CDT): Reviewed proper diet. Continue statin therapy. Hyperlipidemia 01/12/2012 Assessment & Plan (06/08/2024 4:46 AM ANIMATION DIRECTOR): Continue pravastatin. Order lipid panel at next [...] Medications Current Day (Day 1 , Cycle 27 - Planned for 10/10/2024) leuprolide (3 month) (ELIGAR D)leuprolide (3 month) (LUPRON)leuprolide (ELIGARD) leuprolide (3 month) [...] 05/28/2023 Assessment & Plan (03/08/2023 11:40 AM ANIMATION DIRECTOR): Agree with cataract surgery. He has 1st [...] 08/30/2017 Assessment & Plan (03/02/2017 10:48 AM ANIMATION DIRECTOR): Mood is improved. Monitor off medication. Impotence [...] 200. Assessment & Plan (03/07/2018 6:56 AM ANIMATION DIRECTOR): Continue current regimen. Advised annual eye exam.Limit nephrotoxins. Monitor creatinine. Avoid NSAIDS. Assessment & Plan (11/25/2017 10:16 AM CDT): Continue current regimen and add Januvia.Advised annual eye exam. Limit nephrotoxins. Monitor creatinine. Avoid NSAIDS. Assessment & Plan (01/15/2017 6:44 AM CDT): Continue current regimen. Advised annual eye exam. Reviewed proper diet. Continue statin therapy.
--- OUTSIDE RECORDS SUMMARY | 2024-07-20 20:06 | XMS_ITS | Encounter Summary ---
Author Organization [facility] Healthcare Address [address] [place] [address] Care Team Providers Care Supervisor Building Maintenance Name Role Phone Kraig Ching MD Primary Care Provider [phone] Gautam Cope MD Unavailable Tramaine Roe MD Unavailable [phone] Sukhwinder Uribe MD Unavailable [phone] Shay Guillermo MD Unavailable [phone] Marsha Landis RN Unavailable Unavailab le Reason for Visit * Reason Comments UTI Oncologist wants pt tested for UTI r/t high white blood cell count. Pt c/o urinary frequency has been going on for a while. Encounter Details Date Type Department Care Team (Late st Contact Info) Description 07/19/2024 2:00 PM CDT Office Visit [facility] at [address] [address] Clau Childers PA [address] [place] [address] [address] [place], [place] [id number] Urinary frequency (Primary Dx); Leukocytosis, unspecified type Social History Tobacco Use Types Packs/Day Years Used Date Smoking Tobacco: Former Cigarettes 0.3 52 1 958 - 2009 Passive Smoke Exposure: Past Smokeless Tobacco: Never Comments:Smoking History Pac ks/day: 10 Cigarettes Alcohol Use Standard Drinks/Week Comments Yes 0 (1 standard drink = 0.6 oz pur e alcohol) Occasional glass of wine. [facility] Utilities Answer Date Recorded In the past 12 months has e electric, gas, oil, or water [employer] threatened to shut off services in your [...] often do you attend chur ch or denominational services? Never 04/04/2024 Do you belong to any clubs o r organizations such as yazidi groups, unions, fraternal or athletic groups, or [...] any time in the past 12 m [facility], were you homeless or living in a senior care (including now)? No 04/04/2024 Personal Safety Answer Date Recorded Have you ever been in or are you currently in a harmful physical or emotional relationship or is someone making you feel afraid or unsafe? 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 Gender Identity Not on file Sexual Orientation Not on file documented as of this encounter Last Filed Vital Signs Vital Sign Reading Time Taken Comments Blood Pressure 138/76 07/19/2024 2:10 PM CDT Pulse 70 07/19/2024 2:10 PM CDT Temperature 36.4 C (97.6 F) 07/19/2024 2:10 PM CDT Respiratory Rate 24 07/19/2024 2:10 PM CDT Oxygen Saturation 97% 07/19/2024 2:10 PM CDT Inhaled Oxygen Concentration - - Weight 92.1 kg (203 lb) 07/19/2024 2:10 PM CDT Height - - Body Mass Index 29.98 06/14/2024 2:58 PM REVENUE ACCOUNTING MANAGER documented in this encounter Progress Notes * Clau Childers PA - 07/19/2024 2:00 PM CDT Images from the original note were not included. Subjective/Objective Patient ID: David Wei is a 83 y.o. male. Chief Complaint UTI (Oncologist wants pt tested for UTI r/t high white blood cell count. Pt c/o urinary frequency has been going on for a while. ) Pt presents for urine test. Saw oncologist yesterday, WBC was 20, note says no signs of infection and repeat cbc next week. Pt presents today for urine test to r/o UTI. Reports urinary frequency x 1 year. Occasional dysuria. No fever, N/V, flank pain. Review of Systems All systems reviewed and are negative or non contributory for this patient's presentation today other than as stated in the HPI . Physical Exam Constitutional: General: He is not in acute distress. HENT: Head: Normocephalic and atraumatic. Mouth/Throat: Pharynx: Oropharynx is clear. Eyes: Pupils: Pupils are equal, round, and reactive to light. Cardiovascular: Rate and Rhythm: Normal rate and regular rhythm. Pulmonary: Effort: Pulmonary effort is normal. Breath sounds: Normal breath sounds. Musculoskeletal: General: Normal range of motion. Cervical back: Normal range of motion. Skin: General: Skin is warm and dry. Neurological: General: No focal deficit present. Mental Status: He is alert and oriented to person, place, and time. Psychiatric: Mood and Affect: Mood normal. Behavior: Behavior normal. Vitals: 07/19/24 1410 BP: 138/76 Pulse: 70 Resp: 24 Temp: 36.4 ??C (97.6 ??F) SpO2: 97% Weight: 92.1 kg (203 lb) Assessment/Plan -pt w/ hx of metastatic prostate CA, saw oncology yesterday and was noted to have WBC of 20. Per review of note they are aware, do not see any signs of acute infection, and plan to repeat CBC tomorrow -pt presents today requesting urine test to r/o UTI, does have urinary frequency but this is ongoing x at least 1 year -UA w/ blood, no leukocytes or nitrites, will send culture -advised pt continue close follow up with oncology -also gave strict ER precautions Diagnoses and all orders for this visit: Urinary frequency (Primary) - POCT urinalysis dipstick - Urine culture Urine, clean voided; Future Leukocytosis, unspecified type Recent Results (from the past 4 hours) POCT urinalysis dipstick Collection Time: 07/19/24 2:16 PM Result Value Ref Range Color, Urine, POC Light Yellow Clarity, ur, POC Cloudy (A) Clear Glucose, ur, POC 100. (A) Negative MG/DL Bilirubin, ur, POC Negative Negative, Small, Moderate, Large Ketones, ur, POC Negative Negative Specific [place], POC 1.015 1.003 - 1.030 Blood, ur, POC Hemolyzed, trace (A) Negative pH, ur, POC 6.0 5.0 - 8.0 Protein, ur, POC 30. (A) Negative Urobilinogen, urine, POC 0.2 0.2 - 1.0 mg/dL Nitrite, ur, POC Negative Negative Leukocytes, ur, POC Negative Negative Lot Number [id number] Disposition Treatment plan including expectations, follow up, and return precautions discussed with patient/parent, verbalizes understanding. Medication dosage, use, and potential adverse reactions discussed with patient/parent. Advised to follow up with PCP if symptoms do not resolve as expected or sooner if condition worsens. Signs/symptoms warranting ER evaluation reviewed. Patient and/or guardian was given an opportunity to ask questions, questions answered. [place] 07/19/24 2:39 PM documented in this encounter Plan of Treatment Pending Results Name Type Priority Associated Diagnoses Date /Time Urine culture Urine, clean voided Microbiology Routine Urinary frequency 07/19/2024 12:00 PM CDT Scheduled Orders Name Type Priority Associated Diagnoses Orde r Schedule Urine culture Urine, clean voided Microbiology Routine Urinary frequency Expected: 07/19/2024, Expires: 07/19/2025 documented as of this encounter Goals Goal Patient Goal Type Associated Problems Recent Progress Patient-Stated? Author ZAK General Goal - Patient establishes care with [facility] Care Management On track(2023 1:22 PM REVENUE ACCOUNTING MANAGER) No Clarissa Luna RN Note: Problem: Lack of [facility] communication Interventions: - Provide coordination between [facility] company and patient. - Ensure [facility] has appropriate referral and orders to establish care with patient. - Follow up with patient to ensure initial visit was completed by [facility] and that a [facility] plan has been started. ZAK General Goal - Patient schedules and keeps appointments with all recommended providers O Care Management Improving( 1:22 PM REVENUE ACCOUNTING MANAGER) No Clarissa Luna RN Note: Problem: Potential [...] orders or changes made to medication regimen. documented as of this encounter Procedures Procedure Name Priority Date/Time Associated Diagnosis Comments POCT URINALYSIS DIPSTICK Routine 07/19/2024 2:16 PM CDT Urinary frequency documented in this encounter Results * (ABNORMAL) POCT urinalysis dipstick (07/19/2024 2:16 PM CDT) Color, Urine, POC Light Yellow Clarity, ur, POC Cloudy(A) Clear Glucose, ur, POC 100.(A) Negative MG/DL Bilirubin, ur, POC Negative Negative, Small, Moderate, Large Ketones, ur, POC Negative Negative Specific [place], POC 1.015 1.003 - 1.030 Blood, ur, POC Hemolyzed, trace(A) Negative pH, ur, POC 6.0 5.0 - 8.0 Protein, ur, POC 30.(A) Negative Urobilinogen, urine, POC 0.2 0.2 - 1.0 mg/dL Nitrite, ur, POC Negative Negative Leukocytes, ur, POC Negative Negative Lot Number [id number] Urine 07/19/2024 2:16 PM CDT Clau ESQUIVEL POINT OF CARE TEST ORDER ALAN Final Result documented in this encounter Visit Diagnoses Diagnosis Urinary frequency- Primary Leukocytosis, unspecified type documented in this encounter Care Teams Supervisor Building Maintenance Relationship Specialty Start Date End Date Kraig Ching MD [address] [facility] [address] [place] [address] PCP - General 07/10/16 Gautam Cope MD [address] [facility] [address] [place] [address] Medical Oncologist/Cake Wrapper Medical Oncology 08/18/18 Tramaine Roe MD [address] [facility] [address] [place] [address] Referring Physician Urology 08/18/18 Sukhwinder Uribe MD [address] [facility] [address] [place] [address] Consulting Physician Urology 08/18/18 Shay Guillermo MD [address] [facility] [address] [place] [address] Referring Physician Urology 08/18/18 Marsha Landis RN Registered Nurse 11/17/18 documented as of this encounter
--- OUTSIDE RECORDS SUMMARY | 2024-07-20 20:06 | XMS_ITS | Encounter Summary ---
Author Organization [facility] Healthcare Address [address] [place] [address] Care Team Providers Care Audit Officer Name Role Phone Kraig Ching MD Primary Care Provider [phone] Gautam Cope MD Unavailable Tramaine Roe MD Unavailable [phone] Sukhwinder Uribe MD Unavailable [phone] Shay Guillermo MD Unavailable [phone] Marsha Landis RN Unavailable Unavailab le Encounter Details Date Type Department Care Team (Latest Contact Info) Description 07/19/2024 7:45 PM CDT - 07/19/2024 11:59 PM CDT Hospital Encounter [facility] [address] [place] [address] Urinary frequency Discharge Disposition: Discharge to home or self [...] Recorded In the past 12 months has [employer], gas, oil, or water company threatened to [...] often do you attend chur ch or spiritism services? Never 04/04/2024 Do you belong to any clubs o r organizations such as sikhism groups, unions, fraternal or athletic groups, or [...] money to buy more. Never true 04/04/20 24 Within the past 12 months, t he [...] any time in the past 12 m [facility], were you homeless or living in a usp (including now)? No 04/04/2024 Personal Safety Answer Date Recorded Have you ever been in or are you currently in a harmful physical or emotional relationship or is someone making you feel afraid or unsafe? 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 120 tablet 6 03/13/2024 Accu-Chek Fastclix Lancet Drum misc USE DIRECTED TWICE DAILY 204 each 06/14/2024 albuterol HFA (PROVENTIL HFA,VENTOLIN HFA,PROAIR HFA) 90 mcg/actuation inhaler Inhale 2 puffs every 8 (eight) hours as needed for wheezing or shortness of breath 1 each 3 04/03/2024 blood glucose diagnostic (Accu-Chek Guide test strips) strip USE DIRECTED TWICE DAILY 200 strip 1 02/23/2024 carvediloL (COREG) 12.5 mg tablet Take 1 tablet (12.5 mg total) by mouth 2 (two) times a day with meals 60 tablet 11 10/05/2023 5 chlorthalidone (HYGROTON) 25 mg tablet TAKE 1 TABLET(25 MG) BY MOUTH DAILY 90 tablet 2 07/03/2024 cyanocobalamin (Vitamin B-12) 1,000 mcg tabletIndications :Prevention of Vitamin B12 Deficiency Take 1 tablet (1,000 mcg total) by mouth daily 30 tablet 11 04/07/2024 5 dorzolamide-timol oL (COSOPT) 22.3-6.8 mg/mL ophthalmic solution INSTILL 1 DROP IN BOTH EYES TWICE DAILY 10 mL 11 03/20/2024 ergocalciferol (VITAMIN D) 50,000 unit capsule Take 1 capsule (50,000 Units total) by mouth once a week Take 1 capsule every 7 days 10 capsule 04/28/2024 insulin glargine (LANTUS) 100 unit/mL (3 mL) pen for injection ADMINISTER 28 UNITS UNDER THE SKIN DAILY 6 mL 1 07/17/2024 Januvia 25 mg tabletIndications :Type 2 diabetes mellitus with stage 3 chronic kidney disease, without long-term current use of insulin (HCC) TAKE 1 TABLET BY MOUTH DAILY 30 tablet 11 01/06/2024 lisinopriL (PRINIVIL,ZESTRIL ) 40 mg tablet Take 1 tablet (40 mg total) by mouth daily 90 tablet 3 12/01/2023 NovoLOG 100 unit/mL (3 mL) pen for injection ADMINISTER 8 UNITS UNDER THE SKIN THREE TIMES DAILY BEFORE MEALS 3 mL 11 05/05/2023 oxyCODONE (ROXICODONE) 5 mg immediate release tabletIndications :Pain Take 1 tablet (5 mg total) by mouth every 6 (six) hours as needed for pain 60 tablet 06/22/[address] (PROTONIX) 40 mg EC tabletIndications :Gastroesophageal reflux disease, unspecified whether esophagitis present TAKE 1 TABLET(40 MG) BY MOUTH DAILY 90 tablet 1 05/25/2024 pen needle, diabetic (BD Ultra-Fine Short Pen Needle) 31 gauge x 5/16 needle USE TO INJECT INSULIN 4 TIMES EVERY DAY DIRECTED 400 each 11 12/24/2022 pravastatin (PRAVACHOL) 20 mg tablet TAKE 1 TABLET(20 MG) BY MOUTH EVERY NIGHT 90 tablet 3 07/10/2024 predniSONE (DELTASONE) 5 mg tablet Take 1 tablet (5 mg) by mouth two times a day 60 tablet 11 08/12/2023 PreviDent 5000 Plus 1.1 % creamIndications: Prevention of Dental Caries Apply topically nightly 12/10/2022 venlafaxine XR (EFFEXOR-XR) 37.5 mg 24 hr capsuleIndication s:Vasomotor symptoms r/t androgen deprivation therapy. Take 1 capsule (37.5 mg total) by mouth daily 30 capsule 11 04/25/2024 6 documented as of this encounter Discharge Disposition [...] Urine, clean voided Microbiology Routine Urinary frequency Once for 1 Occurrences starting 07/19/2024 until 07/19/2024 documented as of this encounter Goals Goal Patient Goal Type Associated Problems Recent Progress Patient-Stated? Author ZAK General Goal - Patient establishes care with [facility] Care Management On track(2023 1:22 PM COAL PASSER) No Clarissa Luna RN Note: Problem: Lack of [facility] communication Interventions: - Provide coordination between [facility] company and patient. - Ensure [facility] has appropriate referral and orders to establish care with patient. - Follow up with patient to ensure initial visit was completed by [facility] and that a [facility] plan has been started. ZAK General Goal - Patient schedules and keeps appointments with all recommended providers O Care Management Improving( 1:22 PM COAL PASSER) No Clarissa Luna RN Note: Problem: Potential [...] medication regimen. documented as of this encounter Visit Diagnoses Diagnosis Urinary frequency documented in this encounter Care Teams Audit Officer Relationship Specialty Start Date End Date Kraig Ching MD [address] [place], [place] [id number] PCP - General 07/10/16 Gautam Cope MD [address] [place] [address] Medical Oncologist/Film Touch Up Inspector Medical Oncology 08/18/18 Tramaine Roe MD [address] [facility] [address] [place] [address] Referring Physician Urology 08/18/18 Sukhwinder Uribe MD [address] [facility] [address] [place] [address] Consulting Physician Urology 08/18/18 Shay Guillermo MD [address] [facility] [address] [place] [address] Referring Physician Urology 08/18/18 Marsha Landis, RN Registered Nurse 11/17/18 documented as of this encounter
--- OUTSIDE RECORDS SUMMARY | 2024-07-20 20:06 | XMS_ITS | Encounter Summary ---
Author Organization [facility] Address [address] [place] [address] Phone Care Team Providers Care Guide Escort Name Role Phone Kraig Ching MD Primary Care Provider [phone] Gautam Cope MD Unavailable Tramaine Roe MD Unavailable [phone] Sukhwinder Uribe MD Unavailable [phone] Shay Guillermo MD Unavailable [phone] Marsha Landis RN Unavailable Unavailab Clarissa Harry RN Unavailable [phone] Encounter Details Date Type Department Care Team (Late st Contact Info) Description 12/09/2021 Telephone [facility] On[facility] [address] [facility] Advanced Medicine 7th [place] [address] [place] [address] Muna Saleem RN Social History [...] on file 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 Gender Identity Not on file Sexual Orientation Not on file documented as of this encounter Functional Status documented as of this encounter Plan of Treatment Not on file documented as of this encounter Visit Diagnoses Not on filedocumented in this encounter Care Teams Guide Escort Relationship Specialty Start Date End Date Kraig Ching MD [address] [place] [address] PCP - General 07/10/16 Gautam Cope MD [address] [place] [address] Medical Oncologist/Quality Cloth Tester Medical Oncology 08/18/18 Tramaine Roe MD [address] [place] [address] Referring Physician Urology 08/18/18 Sukhwinder Uribe MD [address] [place] [address] Consulting Physician Urology 08/18/18 Shay Guillermo MD [address] [place] [address] Referring Physician Urology 08/18/18 Marsha Landis, RN Registered Nurse 11/17/18 Clarissa Luna RN [address] [place] [address] [address] [place] [address] Plant Engineering Supervisor 04/04/24 04/26/24 documented as of this encounter
--- OUTSIDE RECORDS SUMMARY | 2024-07-20 20:06 | XMS_ITS | Referral Summary ---
Author Organization [facility] Address [address] [place] [address] Care Team Providers Care Underwriting Service Representative Name Role Phone Kraig Ching MD Primary Care Provider [phone] Gautam Cope MD Unavailable Tramaine Roe MD Unavailable [phone] Sukhwinder Uribe MD Unavailable [phone] Shay Guillermo MD Unavailable Marsha Landis RN Unavailable Unavailab le Encounters Date Type Department Care Team Description 07/19/2024 7:45 PM CDT - 07/19/2024 11:59 PM CDT Hospital Encounter [facility] [address] [place], [place] [id number] Urinary frequency Discharge Disposition: Discharge to home or self care 07/19/2024 2:00 PM CDT Office Visit [facility] Medical Group [facility] Care at [address] [address] lCau Childers PA Urinary frequency (Primary Dx); Leukocytosis, unspecified type 07/18/2024 Patient Self-Triage [facility] HealthCare/ Physicians [address] [place] [address] Mychart, Generic Provider 07/18/2024 1:00 PM CDT Office Visit [facility] Oncology [address] [facility] Floor [address] [place] [address] Gautam Cope MD Prostate cancer (HCC) (Primary Dx) 07/18/2024 12:00 PM CDT Lab [facility] - Lab Collection [address] [place] [address] Prostate cancer (HCC) 07/18/2024 1:45 PM CDT Infusion [facility] - Infusion [address] [place] [address] Prostate cancer (HCC) (Primary Dx) 07/01/2024 Orders Only [facility] Health Information Management [address] [place] [phone] Scanning, Provider 06/14/2024 6:15 PM RN NIGHT Lab [facility] ([facility]) [address] [place] [phone] GABRIELA (acute kidney injury) 06/14/2024 3:00 PM RN NIGHT Office Visit [facility] Nephrology [address] [place] [address] 5th [place] [address] [place] [address] Lin Guerrero MD Chronic kidney disease, stage 3b (HCC) (Primary Dx); GABRIELA (acute kidney injury); Hypertension, essential; Secondary hyperparathyroidism of renal origin 06/08/2024 12:00 PM RN NIGHT Lab [facility] ([facility]) [address] [place] [phone] 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 chronic kidney disease (HCC); Hypertension, essential; Secondary hyperparathyroidism of renal origin; Stage 3 chronic kidney disease, unspecified whether stage 3a or 3b CKD (HCC); Primary hypertension; Vitamin D deficiency; Type 2 diabetes mellitus with stage 3a chronic kidney disease, with long-term current use of insulin (HCC); Fatigue, unspecified type; GABRIELA (acute kidney injury) 06/08/2024 9:45 AM RN NIGHT Office Visit [facility] [address] [facility] [address] [place] [phone] Kraig Ching MD Hypertension, essential (Primary Dx); Prostate cancer (HCC); Type 2 diabetes mellitus with stage 3b chronic kidney disease, with long-term current use of insulin (HCC); Stage 3b chronic kidney disease (HCC); Hyperlipidemia, unspecified hyperlipidemia type 05/24/2024 Orders Only [facility] Nephrology [address] [place] [address] [place] [address] [place] [address] iLn Guerrero MD 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 chronic kidney disease (HCC) (Primary Dx); Hypertension, essential; Secondary hyperparathyroidism of renal origin; Stage 3 chronic kidney disease, unspecified whether stage 3a or 3b CKD (HCC); Primary hypertension; Vitamin D deficiency; Type 2 diabetes mellitus with stage 3a chronic kidney disease, with long-term current use of insulin (HCC); Fatigue, unspecified type; GABRIELA (acute kidney injury) 05/02/[address] [address] Kraig Ching MD Medical Question/Miscellaneous 04/28/[address] [place] [address] Stef Roman NP 04/28/2024 Orders Only [address] [place] [address] Stef Roman NP 04/25/2024 11:45 AM RN NIGHT Infusion [facility] - Infusion [address] [address] Prostate cancer (HCC) (Primary Dx) 04/25/2024 9:45 AM RN NIGHT Lab [facility] - Lab Collection [address] [place] [phone] Prostate cancer (HCC) 04/25/2024 10:45 AM RN NIGHT Office Visit [facility] Oncology [address] [facility] Floor [address] [place] [phone] Gautam Cope MD Prostate cancer (HCC) 04/24/[address] [place] [address] Daquan George MD 04/24/2024 11:50 AM RN NIGHT Clinical Support [address] [place] [phone] Age-related osteoporosis without current pathological fracture (Primary Dx) 04/24/2024 12:20 PM RN NIGHT Office Visit [facility] [address] [place] [address] [place] [phone] Daquan George MD Age-related osteoporosis without current pathological fracture (Primary Dx); Alkaline phosphatase elevation; Thyroid condition from Last 3 Months Allergies Active Allergy [...] day 60 tablet 11 08/12/19 24 Active carvediloL (COREG) 12.5 mg tablet Take 1 tablet (12.5 mg total) by mouth 2 (two) times a day with meals 60 tablet 11 10/05/19 24 025 Active lisinopriL (PRINIVIL,ZEST RIL) 40 mg tablet Take 1 tablet (40 mg total) by mouth daily 90 tablet 3 12/01/19 24 025 Active Januvia 25 mg tabletIndicati ons:Type 2 [...] by mouth daily 30 capsule 11 04/25/19 25 026 Active ergocalciferol (VITAMIN D) 50,000 unit capsule Take 1 capsule (50,000 Units total) by mouth once a week Take 1 capsule every 7 days 10 capsule 04/28/[address] (PROTONIX) 40 mg EC tabletIndicati ons:Gastroesop hageal reflux disease, unspecified whether esophagitis present TAKE 1 TABLET(40 MG) BY MOUTH DAILY 90 tablet 1 05/25/19 25 Active Accu-Chek Fastclix Lancet Drum misc USE DIRECTED TWICE DAILY 204 each 06/15/19 25 Active oxyCODONE (ROXICODONE) 5 mg immediate release tabletIndicati ons:Pain Take 1 tablet (5 mg total) by mouth every 6 (six) hours as needed for pain 60 tablet 06/23/19 25 Active chlorthalidone (HYGROTON) 25 mg tablet TAKE 1 TABLET(25 MG) BY MOUTH DAILY 90 tablet 2 07/04/19 25 Active pravastatin (PRAVACHOL) 20 mg tablet TAKE 1 TABLET(20 MG) BY MOUTH EVERY NIGHT 90 tablet 3 07/11/19 25 Active insulin glargine (LANTUS) 100 unit/mL (3 mL) pen for injection ADMINISTER 28 UNITS UNDER THE SKIN DAILY 6 mL 1 07/18/19 25 Active pravastatin (PRAVACHOL) 20 mg tabletIndicati ons:hyperlipid emia Take 1 tablet (20 mg total) by mouth nightly 90 tablet 3 09/16/19 24 025 Discontinued chlorthalidone (HYGROTON) 25 mg tablet TAKE 1 TABLET(25 MG) BY MOUTH DAILY 90 tablet 1 01/03/20 24 025 Discontinued oxyCODONE (ROXICODONE) 5 mg immediate release tabletIndicati ons:Pain Take 1 tablet (5 mg total) by mouth every 6 (six) hours as needed for pain 60 tablet 05/03/19 25 025 Discontinued(Re order) LANTUS 100 unit/mL (3 mL) pen for injection ADMINISTER 28 UNITS UNDER THE SKIN DAILY 6 mL 1 06/02/19 25 025 Discontinued(Re order) Active Problems Problem Noted Date Diagnosed Date Statin myopathy 06/08/2024 Essential hypertension 05/30/2024 Type 2 diabetes mellitus wit h stage 3b chronic kidney disease, with long-term current use of insulin 05/30/2024 Assessment & Plan (06/08/2024 4:46 AM RN NIGHT): Continue current regimen.Limit nephrotoxins.Reviewed creatinine. Avoid NSAIDS. [...] 03/08/2023 Assessment & Plan (06/08/2024 4:46 AM RN NIGHT): Hypertension is controlled. Continue current regimen. Assessment & Plan (10/05/2023 12:54 PM CDT): Hypertension is controlled. Decrease carvedilol to 12.5 mg. Assessment & Plan (03/08/2023 7:11 AM RN NIGHT): Hypertension is controlled. Continue current regimen. 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 Avoid NSAIDS. Assessment & Plan (10/05/2023 5:50 AM CDT): Continue current regimen.Limit nephrotoxins.Reviewed creatinine. Avoid NSAIDS. Assessment & Plan (03/08/2023 7:12 AM RN NIGHT): Continue current regimen.Limit nephrotoxins.Reviewed creatinine. Avoid NSAIDS. CKD (chronic kidney disease) 03/08/2022 Assessment & Plan (06/08/2024 4:45 AM RN NIGHT): Limit nephrotoxins. Monitor creatinine. Avoid NSAIDS.Follow with Nephrology. 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 chronic kidney disease 2021 Gastroesophageal reflux disease 04/08/2021 Assessment & Plan (03/08/2023 11:17 AM RN NIGHT): Reviewed dietary modifications. Continue PPI. Assessment & Plan (08/18/2022 6:36 AM CDT): Reviewed dietary modifications. Continue PPI. Assessment & Plan (02/12/2022 6:03 AM CDT): Reviewed dietary modifications. Continue PPI. Assessment & Plan (04/08/2021 5:55 AM RN NIGHT): Reviewed dietary modifications. Continue PPI. 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 Continue home PT exercises. Advised using a walker. Assessment & Plan (08/18/2022 11:47 AM CDT): Continue oxycodone. Continue home PT exercises. Advised using a walker. Assessment & Plan (02/12/2022 11:41 AM CDT): Continue oxycodone. Continue home PT exercises. A prescription for a walker. Assessment & Plan (04/08/2021 5:55 AM RN NIGHT): Continue oxycodone. Continue home PT exercises. Continue walker. Assessment & Plan (12/26/2020 10:48 AM CDT): Continue oxycodone. Script for walker. Assessment & Plan (09/26/2020 11:29 AM CDT): Continue ROM exercises and follow with Pain Management. Refill oxycodone as needed. Prostate cancer 09/06/2018 Assessment & Plan (06/08/2024 4:46 AM RN NIGHT): Follow with Oncology. Continue Zytiga. Assessment & [...] 01/25/2018 Assessment & Plan (03/07/2018 6:54 AM RN NIGHT): Hypertension is controlled. Continue current regimen. CHF [...] creatinine. Assessment & Plan (04/08/2021 5:54 AM RN NIGHT): Hypertension is controlled. Continue current regimen.Limit nephrotoxins. [...] NSAIDS. Assessment & Plan (03/07/2018 6:55 AM RN NIGHT): Hypertension is controlled. Continue current regimen. Limit nephrotoxins. Monitor creatinine. Avoid NSAIDS. Assessment & Plan (11/25/2017 7:09 AM CDT): Limit nephrotoxins. Monitor creatinine. Avoid NSAIDS. Duodenal ulcer 11/25/2017 Assessment & Plan (11/25/2017 10:16 AM CDT): Reviewed GI note . Continue pantoprazole. Avoid NSAIDS. Refer for EGD. PAF (paroxysmal atrial fibrillation) 10/22/2017 Assessment & Plan (03/07/2018 6:54 AM RN NIGHT): Continue rate control. Continue anticoagualtion. Anticipate starting [...] NSAIDS. Assessment & Plan (03/07/2018 6:55 AM RN NIGHT): Limit nephrotoxins. Monitor creatinine. Avoid NSAIDS. Assessment [...] diet. Assessment & Plan (04/08/2021 10:17 AM RN NIGHT): Reviewed HgBA1C elevated at 10.6 on 04/01/21. [...] therapy. Assessment & Plan (03/07/2018 6:57 AM RN NIGHT): Continue pravastatin. He had myalgias on other [...] diet. Assessment & Plan (03/02/2017 6:53 AM RN NIGHT): Hypertension is controlled. Continue current regimen. Reviewed low sodium diet. Assessment & Plan (01/15/2017 6:44 AM CDT): Reviewed proper diet. Continue statin therapy. Hyperlipidemia 01/12/2012 Assessment & Plan (06/08/2024 4:46 AM RN NIGHT): Continue pravastatin. Order lipid panel at next [...] 05/28/2023 Assessment & Plan (03/08/2023 11:40 AM RN NIGHT): Agree with cataract surgery. He has 1st [...] 08/30/2017 Assessment & Plan (03/02/2017 10:48 AM RN NIGHT): Mood is improved. Monitor off medication. Impotence [...] 200. Assessment & Plan (03/07/2018 6:56 AM RN NIGHT): Continue current regimen. Advised annual eye exam.Limit [...] 01/17/2019 Influenza, Unspecified 01/17/2019(Deferred: Daisy ent Refused) [place] ([employer]) SARS-CoV-2 Vaccination 06/14/2020, 06/14/2020 Pfizer SARS-CoV-2 [...] pur e alcohol) Occasional glass of wine. [facility] Utilities Answer Date Recorded In the past 12 months has e electric, gas, oil, or water company [...] often do you attend chur ch or uatsdin services? Never 04/04/2024 Do you belong to any clubs o r organizations such as gnosticist groups, unions, fraternal or athletic groups, or [...] any time in the past 12 m [facility], were you homeless or living in a correction (including now)? No 04/04/2024 Personal Safety Answer Date Recorded Have you ever been in or are you currently in a harmful physical or emotional relationship or is someone making you feel afraid or unsafe? Denies 06/09/2023 Sex and Gender Information Value Date Recorded Sex Assigned at Not on file Legal Sex Male 4:46 PM RN NIGHT Gender Identity Not on file Sexual [...] (203 lb) 07/19/2024 2:10 PM CDT Height 175.3 cm (5' 9 ) 06/14/2024 2:58 PM RN NIGHT Body Mass Index 29.98 06/14/2024 2:58 PM RN NIGHT Plan of Treatment Not on file Goals Goal Patient Goal Type Associated Problems Recent Progress Patient-Stated? Author ZAK General Goal - Patient establishes care with [facility] ACO Care Management On track(2023 1:22 PM RN NIGHT) No Clarissa Luna RN Note: Problem: Lack of [facility] communication Interventions: - Provide coordination between [facility] company and patient. - Ensure [facility] has appropriate referral and orders to establish care with patient. - Follow up with patient to ensure initial visit was completed by [facility] and that a [facility] plan has been started. ZAK General Goal - Patient schedules and keeps appointments with all recommended providers ACO Care Management Improving( 1:22 PM RN NIGHT) No Clarissa Luna RN Note: Problem: Potential [...] medication regimen. Medical Devices Implanted Type Area Leaf Sticker Device Identifier Shelf Expiration Date Model / Serial / Lot [employer] Lens Iol Cna0t0.195 [facility] Autonom Cna0t0.195 - [id number] - [id number] Implanted:Qty: 1 on 06/09/2023 by Higinio Connolly MD at [facility] Lens Right: Eye [employer] [id number] 10/27/2025 CNA0T0.19 5 / [id number] / [employer] Lens Iol Cna0t0.200 [facility] Autonom Cna0t0.200 - [id number] - [id number] Implanted:Qty: 1 on 05/19/2023 by Higinio Connolly MD at [facility] Left: Eye [employer] [id number] 10/06/2025 CNA0T0.20 0 / [id number] / Procedures Procedure Name Priority Date/Time Associated Diagnosis Comments POCT URINALYSIS DIPSTICK Routine 07/19/2024 2:16 PM CDT Urinary frequency EGFR STAT 07/18/2024 12:07 PM CDT Prostate cancer (HCC) DIFFERENTIAL AUTO Routine 07/18/2024 12:07 PM CDT Prostate cancer (HCC) LACTATE DEHYDROGENASE Routine 07/18/2024 12:07 PM CDT Prostate cancer (HCC) CBC WITH AUTO DIFFERENTIAL Routine 07/18/2024 12:07 PM CDT Prostate cancer (HCC) COMPREHENSIVE METABOLIC PANEL STAT 07/18/2024 12:07 PM CDT Prostate cancer (HCC) PSA DIAGNOSTIC Routine 07/18/2024 12:07 PM CDT Prostate cancer (HCC) HEMOGLOBIN A1C Routine 07/18/2024 12:07 PM CDT Prostate cancer (HCC) SCAN - RADIOLOGY/IMAGING 07/01/2024 9:44 AM CDT EGFR Routine 06/14/2024 3:48 PM RN NIGHT GABRIELA (acute kidney injury) RENAL FUNCTION PANEL Routine 06/14/2024 3:48 PM RN NIGHT GABRIELA (acute kidney injury) URINALYSIS AND REFLEX TO MICROSCOPIC Routine 06/08/2024 10:47 AM RN NIGHT 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 chronic kidney disease (HCC) Hypertension, essential Secondary hyperparathyroidism of renal origin Stage 3 chronic kidney disease, unspecified whether stage 3a or 3b CKD (HCC) Primary hypertension Vitamin D deficiency Type 2 diabetes mellitus with stage 3a chronic kidney disease, with long-term current use of insulin (HCC) Fatigue, unspecified type GABRIELA (acute kidney injury) EGFR Routine 06/08/2024 10:44 AM RN NIGHT 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 chronic kidney disease (HCC) Hypertension, essential Secondary hyperparathyroidism of renal origin Stage 3 chronic kidney disease, unspecified whether stage 3a or 3b CKD (HCC) Primary hypertension Vitamin D deficiency Type 2 diabetes mellitus with stage 3a chronic kidney disease, with long-term current use of insulin (HCC) Fatigue, unspecified type GABRIELA (acute kidney injury) DIFFERENTIAL AUTO Routine 06/08/2024 10:44 AM RN NIGHT 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 chronic kidney disease [...] RENAL FUNCTION PANEL Routine 06/08/2024 10:44 AM RN NIGHT 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 chronic kidney disease [...] D 25 HYDROXY Routine 06/08/2024 10:44 AM RN NIGHT 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 chronic kidney disease [...] WITH AUTO DIFFERENTIAL Routine 06/08/2024 10:44 AM RN NIGHT 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 chronic kidney disease (HCC) Hypertension, essential Secondary hyperparathyroidism of renal origin Stage 3 chronic kidney disease, unspecified whether stage 3a or 3b CKD (HCC) Primary hypertension Vitamin D deficiency Type 2 diabetes mellitus with stage 3a chronic kidney disease, with long-term current use of insulin (HCC) Fatigue, unspecified type GABRIELA (acute kidney injury) PTH Routine 06/08/2024 10:44 AM RN NIGHT 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 chronic kidney disease [...] RATIO, URINE, RANDOM Routine 06/08/2024 10:44 AM RN NIGHT 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 chronic kidney disease (HCC) Hypertension, essential Secondary hyperparathyroidism of renal origin Stage 3 chronic kidney disease, unspecified whether stage 3a or 3b CKD (HCC) Primary hypertension Vitamin D deficiency Type 2 diabetes mellitus with stage 3a chronic kidney disease, with long-term current use of insulin (HCC) Fatigue, unspecified type GABRIELA (acute kidney injury) EGFR STAT 04/25/2024 9:45 AM RN NIGHT Prostate cancer (HCC) VITAMIN D 25 HYDROXY Routine 04/25/2024 9:45 AM RN NIGHT Prostate cancer (HCC) TOTAL TESTOSTERONE Routine 04/25/2024 9:45 AM RN NIGHT Prostate cancer (HCC) HEMOGLOBIN A1C Routine 04/25/2024 9:45 AM RN NIGHT Prostate cancer (HCC) VITAMIN B12 Routine 04/25/2024 9:45 AM RN NIGHT Prostate cancer (HCC) LACTATE DEHYDROGENASE Routine 04/25/2024 9:45 AM RN NIGHT Prostate cancer (HCC) COMPREHENSIVE METABOLIC PANEL STAT 04/25/2024 9:45 AM RN NIGHT Prostate cancer (HCC) PSA DIAGNOSTIC Routine 04/25/2024 9:45 AM RN NIGHT Prostate cancer (HCC) DIFFERENTIAL AUTO Routine 04/25/2024 9:40 AM RN NIGHT Prostate cancer (HCC) CBC WITH AUTO DIFFERENTIAL Routine 04/25/2024 9:40 AM RN NIGHT Prostate cancer (HCC) DEXA TBS AXIAL SKELETON BONE DENSITY 1 OR MORE SITES Schedule Routine, Read Routine (OP Routine) 04/24/2024 11:56 AM RN NIGHT Age-related osteoporosis without current pathological fracture LIPID PANEL Routine 03/08/2023 11:55 AM RN NIGHT Hyperlipidemia, unspecified hyperlipidemia type ALBUMIN CREATININE RATIO, URINE Routine 01/01/2023 10:40 AM CDT Type 2 diabetes mellitus with stage 3a chronic kidney disease, with long-term current use of insulin (HCC) DIABETES EYE EXAM Routine 06/29/2018 from Last 3 Months or Most Recently Relevant to Health Maintenance Results * (ABNORMAL) POCT urinalysis dipstick (07/19/2024 2:16 PM CDT) Color, Urine, POC Light Yellow Clarity, ur, POC Cloudy(A) Clear Glucose, ur, POC 100.(A) Negative MG/DL Bilirubin, ur, POC Negative Negative, Small, Moderate, Large Ketones, ur, POC Negative Negative Specific Addison, POC 1.015 1.003 - 1.030 Blood, ur, POC Hemolyzed, trace(A) Negative pH, ur, POC 6.0 5.0 - 8.0 Protein, ur, POC 30.(A) Negative Urobilinogen, urine, POC 0.2 0.2 - 1.0 mg/dL Nitrite, ur, POC Negative Negative Leukocytes, ur, POC Negative Negative Lot Number [id number] Urine 07/19/2024 2:16 PM CDT Clau ESQUIVEL POINT OF CARE TEST ORDER ALAN Final Result * (ABNORMAL) eGFR (07/18/2024 12:07 PM CDT) eGFR 23(L) >=60 mL/min/1. 73 m2 Comment: Interpretive Data [...] interpretive data was last reviewed 2021. Blood 07/18/2024 12:0 7 PM CDT 07/18/2024 12:25 PM CDT us Gautam Cope MD LAB BLOOD ORDERABLES Final Resul t [facility] Department [place] [address] * (ABNORMAL) Differential, auto (07/18/2024 12:07 PM CDT) Neutrophil abs 17.55(H) 1.50 - 6.50 K/cumm Comment:Testing performed by : [facility], [address] [place] [phone] Lymphocyte abs 0.96 0.80 - 3.30 K/cumm MERLINE PERDOMO Comment:Testing performed by : [facility], [address] [place] [phone] Monocyte abs 1.48(H) 0.20 - 0.80 K/cumm MERLINE PERDOMO Comment:Testing performed by : [facility], [address] [place] [phone] Eosinophil abs 0.06 0.00 - 0.50 K/cumm MERLINE PERDOMO Comment:Testing performed by : [facility], [address] [place] [phone] Basophil abs 0.03 0.00 - 0.10 K/cumm MERLINE BJ Comment:Testing performed by : [facility], [address] [place] [phone] Neutrophil pct 87.4 % CERONEAL [facility]DOM[facility] Comment: Interpretive Data Percent cell count reference ranges are not reported, since discordance with absolute values may lead to misinterpretation of CBC data. Current Interpretive Data was last revised on 2017. Testing performed by: [facility], [address] [place] [phone] Lymphocyte pct 4.8 % [facility]ERONEAL [facility] Comment: Interpretive Data Percent cell count reference ranges are not reported, since discordance with absolute values may lead to misinterpretation of CBC data. Current Interpretive Data was last revised on 2017. Testing performed by: [facility], [address] [place] [phone] Monocyte pct 7.4 % MERLINE [facility]DOMO Comment: Interpretive Data Percent cell count reference ranges are not reported, since discordance with absolute values may lead to misinterpretation of CBC data. Current Interpretive Data was last revised on 2017. Testing performed by: [facility], [address] [place], [place] [id number] Eosinophil pct 0.3 % MERLINE [facility]DOMO Comment: Interpretive Data Percent cell count reference ranges are not reported, since discordance with absolute values may lead to misinterpretation of CBC data. Current Interpretive Data was last revised on 2017. Testing performed by: [facility], [address] [place] [phone] Basophil pct 0.2 % MERLINE [facility] Comment: Interpretive Data Percent cell count reference ranges are not reported, since discordance with absolute values may lead to misinterpretation of CBC data. Current Interpretive Data was last revised on 2017. Testing performed by: [facility], [address] [place] [phone] Blood 07/18/2024 12:0 7 PM CDT 07/18/2024 12:22 PM CDT us Gautam Cope MD LAB BLOOD ORDERABLES Final Resul t MERLINE [facility] Department [place] [address] * (ABNORMAL) CBC with auto differential (07/18/2024 12:07 PM CDT) WBC 20.09(H) 3.80 - 9.90 K/cumm Comment:Testing performed by : [facility], [address] [place], [place] [phone] Hgb 12.1(L) 13.0 - 17.5 g/dL CERNER BJ Comment:Testing performed by : [facility], [address] [place], [place] [phone] Hct 38.2(L) 38.9 - 50.3 % CERNER BJ Comment:Testing performed by : [facility], [address] [place] [address] Plt 451(H) 150 - 400 K/cumm CERNER BJ Comment:Testing performed by : [facility], [address] [place] [address] MPV 7.7 6.8 - 10.4 fL CERNER BJ Comment:Testing performed by : [facility], [address] [place] [address] RBC 4.46 4.30 - 5.80 M/cumm CERNER BJ Comment:Testing performed by : [facility], [address] [place] [address] MCV 85.5 81.3 - 96.4 fL CERNER BJ Comment:Testing performed by : [facility], [address] [place] [address] MCH 27.1 27.1 - 33.3 pg CERNER BJ Comment:Testing performed by : [facility], [address] [place] [address] MCHC 31.7(L) 32.3 - 35.7 g/dL CERNER BJ Comment:Testing performed by : [facility], [address] [place] [address] RDW CV 14.9 11.1 - 14.9 % CERNER BJ Comment:Testing performed by : [facility], [address] [place] [address] NRBC abs 0.00 0.00 - 0.01 K/cumm [facility] Comment:Testing performed by : [facility], [address] [place] [phone] Blood 07/18/2024 12:0 7 PM CDT 07/18/2024 12:22 PM CDT us Gautam Cope MD LAB BLOOD ORDERABLES Final Resul t Performing Organization Address [facility] de Phone Number [facility] Department [place] [address] * PSA diagnostic (07/18/2024 12:07 PM CDT) PSA-Total <0.02 <=6.20 ng/mL Comment: Interpretive [...] Current interpretive data last revised 21. Blood 07/18/2024 12:0 7 PM CDT 07/18/2024 12:25 PM CDT us Gautam Cope MD LAB BLOOD ORDERABLES Final Resul t Performing Organization Address [facility] de Phone Number [facility] Department [place] [address] * Lactate dehydrogenase (LD) (07/18/2024 12:07 PM CDT) Lactate dehydrogenase (LDH) 216 100 - 250 Units/L Blood 07/18/2024 12:0 7 PM CDT 07/18/2024 12:25 PM CDT us Gautam Cope MD LAB BLOOD ORDERABLES Final Resul t Performing Organization Address [facility] de Phone Number [facility] Department [place] [address] * (ABNORMAL) Hemoglobin A1c (07/18/2024 12:07 PM CDT) Pathologist [facility] Hgb A1C 8.0(H) 4.0 - 5.6 % Estimated Average Glucose 183 mg/dL [facility] Comment: The ADA recommends reporting an estimated Average Glucose (eAG) with all Hemoglobin A1c results using the equation derived from a study of 507 normal and diabetic adults. Minority populations were underrepresented and children were not included. (Diabetes Care 2020; 43(S1): S66-S76). The eAG is not equivalent to a fasting glucose. Blood 07/18/2024 12:0 7 PM CDT 07/18/2024 12:25 PM CDT Gautam Cope MD LAB BLOOD ORDERABLES Final Resul t Performing Organization Address [facility] de Phone Number [facility] Department [place] [address] * (ABNORMAL) Comprehensive metabolic panel (07/18/2024 12:07 PM CDT) [facility] Sodium 142 135 - 145 mmol/L Potassium, pl 4.6 3.3 - 4.9 mmol/L [facility] Chloride 106 97 - 110 mmol/L [facility] CO2 24 22 - 32 mmol/L [facility] Anion gap 12 2 - 15 mmol/L [facility] BUN 52(H) 6 - 25 mg/dL [facility] Creatinine 2.66(H) 0.80 - 1.30 mg/dL [facility] Glucose 164 70 - 199 mg/dL [facility] Comment: Interpretive Data Fasting glucose [...] 2022. Calcium 9.0 8.5 - 10.3 mg/dL [facility] Bilirubin, total 0.5 0.1 - 1.2 mg/dL CERNER [facility] Protein, pl 6.7 6.5 - 8.5 g/dL [facility] Albumin 4.0 3.5 - 5.0 g/dL CERNER [facility] Alk phos 126 40 - 130 Units/L CERNER [facility] ALT 10 7 - 55 Units/L [facility] AST 13 10 - 50 Units/L [facility] Blood 07/18/2024 12:0 7 PM CDT 07/18/2024 12:25 PM CDT us Gautam Cope MD LAB BLOOD ORDERABLES Final Resul t [facility] Department [place] [address] * SCAN - RADIOLOGY/IMAGING (07/01/2024 9:44 AM CDT) Anatomical Region Laterality Modality Other us Provider Scanning Final Result * (ABNORMAL) eGFR (06/14/2024 3:48 PM RN NIGHT) eGFR 26(L) >=60 mL/min/1. 73 m2 Comment: [...] last reviewed 2021. Blood 06/14/2024 3:48 PM RN NIGHT 06/14/2024 4:07 PM RN NIGHT us Lin Guerrero MD LAB BLOOD ORDERABLES Final Resul t [facility] Department [place] [address] * (ABNORMAL) Renal function panel (06/14/2024 3:48 PM RN NIGHT) Sodium 143 135 - 145 mmol/L Potassium, pl 5.0(H) 3.3 - 4.9 mmol/L [facility] Chloride 105 97 - 110 mmol/L [facility] CO2 28 22 - 32 mmol/L [facility] Anion gap 10 2 - 15 mmol/L [facility] BUN 48(H) 6 - 25 mg/dL [facility] Creatinine 2.42(H) 0.80 - 1.30 mg/dL [facility] Glucose 152 70 - 199 mg/dL [facility] Comment: Interpretive Data Fasting glucose [...] 2022. Calcium 8.7 8.5 - 10.3 mg/dL [facility] Phosphorus, pl 3.1 2.3 - 4.5 mg/dL [facility] Albumin 3.9 3.5 - 5.0 g/dL [facility] Blood 06/14/2024 3:48 PM RN NIGHT 06/14/2024 4:03 PM RN NIGHT Lin Guerrero MD LAB BLOOD ORDERABLES Final Resul t Performing Organization Address [facility] de Phone Number [facility] [place] [address] * Urinalysis reflex to microscopic (06/08/2024 10:47 AM RN NIGHT) Color, ur Straw Yellow Clarity, ur Clear Clear [facility] Specific gravity, ur 1.012 1.003 - 1.030 [facility] pH, urine 6.0 [facility] Comment: Interpretive Data U rine pH is affected by diet, medications, systemic acid-base disturbances, and renal tubular function. pH may affect urinary stone formation. For example, urine pH below 6.0 may help reduce the tendency for calcium phosphate stones and pH greater than 6.0 may reduce the tendency for uric acid stone formation. Source: [facility] Current Interpretive Data was last revised on 2017 Protein, ur ql Trace Negative [facility] Glucose, ur ql Negative Negative [facility] Ketones, ur Negative Negative [facility] Bilirubin, ur Negative Negative [facility] Blood, ur Negative Negative [facility] Urobilinogen, ur <2.0 <2.0 mg/dL [facility] Nitrite, ur Negative Negative [facility] Leukocyte esterase, ur Negative Negative [facility] UA reflex comment Reflex conditions for microscopic UA not met. [facility] Urine 06/08/2024 10:4 7 AM RN NIGHT 06/08/2024 11:41 AM RN NIGHT us Lin Guerrero MD LAB URINE ORDERABLES Final Resul t Performing Organization Address [facility] Co de Phone Number [facility] Department [place] [address] * (ABNORMAL) eGFR (06/08/2024 10:44 AM RN NIGHT) eGFR 22(L) >=60 mL/min/1. 73 m2 Comment: [...] reviewed 2021. Blood 06/08/2024 10:4 4 AM RN NIGHT 06/08/2024 11:23 AM RN NIGHT us Lin Guerrero MD LAB BLOOD ORDERABLES Final Resul t [facility] One [facility] Department of Laboratories [place], [place] [id number] * (ABNORMAL) Differential, auto (06/08/2024 10:44 AM RN NIGHT) Neutrophil abs 7.8(H) 1.5 - 6.5 K/cumm Imm gran abs 0.1 0.0 - 0.1 K/cumm [facility] Lymphocyte abs 1.9 0.8 - 3.3 K/cumm [facility] Monocyte abs 1.0(H) 0.2 - 0.8 K/cumm [facility] Eosinophil abs 0.1 0.0 - 0.5 K/cumm [facility] Basophil abs 0.0 0.0 - 0.1 K/cumm [facility] Neutrophil pct 71.1 % [facility] Comment: Interpretive Data Percent cell count reference ranges are not reported, since discordance with absolute values may lead to misinterpretation of CBC data. Current Interpretive Data was last revised on 2017. Imm gran pct 0.8 % [facility] Comment: Interpretive Data Percent cell count reference ranges are not reported, since discordance with absolute values may lead to misinterpretation of CBC data. Current Interpretive Data was last revised on 2017. Lymphocyte pct 17.1 % [facility] Comment: Interpretive Data Percent cell count reference ranges are not reported, since discordance with absolute values may lead to misinterpretation of CBC data. Current Interpretive Data was last revised on 2017. Monocyte pct 9.3 % [facility] Comment: Interpretive Data Percent cell count reference ranges are not reported, since discordance with absolute values may lead to misinterpretation of CBC data. Current Interpretive Data was last revised on 2017. Eosinophil pct 1.3 % [facility] Comment: Interpretive Data Percent cell count reference ranges are not reported, since discordance with absolute values may lead to misinterpretation of CBC data. Current Interpretive Data was last revised on 2017. Basophil pct 0.4 % [facility] Comment: Interpretive Data Percent cell count reference ranges are not reported, since discordance with absolute values may lead to misinterpretation of CBC data. Current Interpretive Data was last revised on 2017. Blood 06/08/2024 10:4 4 AM RN NIGHT 06/08/2024 11:23 AM RN NIGHT us Lin Guerrero MD LAB BLOOD ORDERABLES Final Resul t [facility] Department [place] [address] * (ABNORMAL) CBC with auto differential (06/08/2024 10:44 AM RN NIGHT) WBC 11.0(H) 3.8 - 9.9 K/cumm Hgb 12.0(L) 13.0 - 17.5 g/dL [facility] Hct 36.9(L) 38.9 - 50.3 % [facility] Plt 357 150 - 400 K/cumm [facility] MPV 9.8 9.1 - 12.3 fL [facility] RBC 4.27(L) 4.30 - 5.80 M/cumm [facility] MCV 86.4 81.3 - 96.4 fL [facility] MCH 28.1 27.1 - 33.3 pg [facility] MCHC 32.5 32.3 - 35.7 g/dL [facility] RDW CV 14.1 11.1 - 14.9 % [facility] RDW SD 44.2 35.7 - 48.1 fL [facility] NRBC abs 0.00 0.00 - 0.01 K/cumm [facility] Blood 06/08/2024 10:4 4 AM RN NIGHT 06/08/2024 11:23 AM RN NIGHT Lin Guerrero MD LAB BLOOD ORDERABLES Final Resul t Performing Organization Address [facility] de Phone Number [facility] Department [place] [address] * (ABNORMAL) Protein / creatinine ratio, urine, random (06/08/2024 10:44 AM RN NIGHT) Pathologist [facility] Protein, ur, quant 21.3 mg/dL Comment: Interpretive Data No reference range established. Current interpretive data was last revised 2018. Creatinine Ur 52.2 mg/dL [facility] Comment: Interpretive Data No reference range established. Current interpretive data was last revised 2018. Protein/creatinin e ratio 408.0(H) 0.0 - 180.0 mg/g CR [facility] Urine 06/08/2024 10:4 4 AM RN NIGHT 06/08/2024 11:23 AM RN NIGHT Lin Guerrero MD LAB URINE ORDERABLES Final Resul t Performing Organization Address [facility] de Phone Number [facility] [place] [address] * Vitamin D 25 hydroxy (06/08/2024 10:44 AM RN NIGHT) Vitamin D 25-OH 42 30 - 80 ng/mL Blood 06/08/2024 10:4 4 AM RN NIGHT 06/08/2024 11:23 AM RN NIGHT Lin Guerrero MD LAB BLOOD ORDERABLES Final Resul t Performing Organization Address City/[facility] Co de Phone Number [facility] [place] [address] * (ABNORMAL) PTH (06/08/2024 10:44 AM RN NIGHT) Pathologist [facility] PTH 78(H) 15 - 65 pg/mL Blood 06/08/2024 10:4 4 AM RN NIGHT 06/08/2024 11:23 AM RN NIGHT Lin Guerrero MD LAB BLOOD ORDERABLES Final Resul t Performing Organization Address [facility] Phone Number [facility] [place] [address] * (ABNORMAL) Renal function panel (06/08/2024 10:44 AM RN NIGHT) [facility] Sodium 142 135 - 145 mmol/L Potassium, pl 4.8 3.3 - 4.9 mmol/L [facility] Chloride 107 97 - 110 mmol/L [facility] CO2 27 22 - 32 mmol/L [facility] Anion gap 8 2 - 15 mmol/L [facility] BUN 60(H) 6 - 25 mg/dL [facility] Creatinine 2.72(H) 0.80 - 1.30 mg/dL [facility] Glucose 94 70 - 199 mg/dL [facility] Comment: Interpretive Data Fasting glucose [...] 2022. Calcium 9.0 8.5 - 10.3 mg/dL [facility] Phosphorus, pl 3.5 2.3 - 4.5 mg/dL [facility] Albumin 3.8 3.5 - 5.0 g/dL [facility] Blood 06/08/2024 10:4 4 AM RN NIGHT 06/08/2024 11:23 AM RN NIGHT us Lin Guerrero MD LAB BLOOD ORDERABLES Final Resul t Performing Organization Address City/[facility]/ZIP Co de Phone Number [facility] Department [place] [address] * (ABNORMAL) eGFR (04/25/2024 9:45 AM RN NIGHT) eGFR 28(L) >=60 mL/min/1. 73 m2 Comment: [...] last reviewed 2021. Blood 04/25/2024 9:45 AM RN NIGHT 04/25/2024 9:51 AM RN NIGHT us Gautam Cope MD LAB BLOOD ORDERABLES Final [facility]ul t [facility] [place] [address] * (ABNORMAL) Vitamin D 25 hydroxy (04/25/2024 9:45 AM RN NIGHT) Vitamin D 25-OH 22(L) 30 - 80 ng/mL Blood 04/25/2024 9:45 AM RN NIGHT 04/25/2024 9:51 AM RN NIGHT us Gautam Cope MD LAB BLOOD ORDERABLES Final Resul t Performing Organization Address [facility] Co de Phone Number [facility] [place] [address] * (ABNORMAL) Total testosterone (04/25/2024 9:45 AM RN NIGHT) Testosterone <5.0(L) 193.0 - 740.0 ng/dL Blood 04/25/2024 9:45 AM RN NIGHT 04/25/2024 11:20 AM RN NIGHT us Gautam Cope MD LAB BLOOD ORDERABLES Final Resul t Performing Organization Address [facility] de Phone Number [facility] [place] [employer] [place] [address] * PSA diagnostic (04/25/2024 9:45 AM RN NIGHT) PSA-Total <0.02 <=6.20 ng/mL Comment: Interpretive Data [...] last revised 21. Blood 04/25/2024 9:45 AM RN NIGHT 04/25/2024 9:51 AM RN NIGHT us Gautam Cope MD LAB BLOOD ORDERABLES Final Resul t Performing Organization Address [facility] de Phone Number [facility] [place] [employer] [place] [place] [address] * Lactate dehydrogenase (LD) (04/25/2024 9:45 AM RN NIGHT) Pathologist [facility] Lactate dehydrogenase (LDH) 157 100 - 250 Units/L Blood 04/25/2024 9:45 AM RN NIGHT 04/25/2024 9:51 AM RN NIGHT Gautam Cope MD LAB BLOOD ORDERABLES Final Resul t Performing Organization Address [facility] [place] [address] * (ABNORMAL) Hemoglobin A1c (04/25/2024 9:45 AM RN NIGHT) [facility] Hgb A1C 8.1(H) 4.0 - 5.6 % Estimated Average Glucose 186 mg/dL [facility] Comment: The ADA recommends reporting an estimated Average Glucose (eAG) with all Hemoglobin A1c results using the equation derived from a study of 507 normal and diabetic adults. Minority populations were underrepresented and children were not included. (Diabetes Care 2020; 43(S1): S66-S76). The eAG is not equivalent to a fasting glucose. Blood 04/25/2024 9:45 AM RN NIGHT 04/25/2024 9:51 AM RN NIGHT us Gautam Cope MD LAB BLOOD ORDERABLES Final Resul t Performing Organization Address [facility] [place] [address] * Vitamin B12 (04/25/2024 9:45 AM RN NIGHT) Pathologist [facility] Vitamin B12 390 230 - 1,250 pg/mL Blood 04/25/2024 9:45 AM RN NIGHT 04/25/2024 11:20 AM RN NIGHT us Gautam Cpoe MD LAB BLOOD ORDERABLES Final Resul t [facility] Department [place] [address] * (ABNORMAL) Comprehensive metabolic panel (04/25/2024 9:45 AM RN NIGHT) Sodium 142 135 - 145 mmol/L Potassium, pl 4.5 3.3 - 4.9 mmol/L [facility] Chloride 106 97 - 110 mmol/L [facility] CO2 29 22 - 32 mmol/L [facility] Anion gap 7 2 - 15 mmol/L [facility] BUN 41(H) 6 - 25 mg/dL [facility] Creatinine 2.25(H) 0.80 - 1.30 mg/dL [facility] Glucose 201(H) 70 - 199 mg/dL [facility] Comment: Interpretive Data Fasting glucose [...] 2022. Calcium 9.2 8.5 - 10.3 mg/dL C[facility] Bilirubin, total 0.3 0.1 - 1.2 mg/dL [facility] Protein, pl 6.7 6.5 - 8.5 g/dL CERNER [facility] Albumin 3.9 3.5 - 5.0 g/dL [facility] Alk phos 128 40 - 130 Units/L CERNER [facility] ALT 10 7 - 55 Units/L [facility] AST 12 10 - 50 Units/L [facility] Blood 04/25/2024 9:45 AM RN NIGHT 04/25/2024 9:51 AM RN NIGHT us Gautam Cope MD LAB BLOOD ORDERABLES Final Resul t [facility] Department [place] [address] * (ABNORMAL) Differential, auto (04/25/2024 9:40 AM RN NIGHT) Neutrophil abs 9.1(H) 1.5 - 6.5 K/cumm Comment:Testing performed by : [facility], [address] [place] [phone] Lymphocyte abs 1.6 0.8 - 3.3 K/cumm [facility] Comment:Testing performed by : [facility], [address] [place] [phone] Monocyte abs 0.9(H) 0.2 - 0.8 K/cumm [facility] Comment:Testing performed by : [facility], [address] [place], [place] [phone] Eosinophil abs 0.2 0.0 - 0.5 K/cumm [facility] Comment:Testing performed by : [facility], [address] [place] [phone] Basophil abs 0.1 0.0 - 0.1 K/cumm [facility] Comment:Testing performed by : [facility], [address] [place] [phone] Neutrophil pct 76.7 % [facility] Comment: Interpretive Data Percent cell count reference ranges are not reported, since discordance with absolute values may lead to misinterpretation of CBC data. Current Interpretive Data was last revised on 2017. Testing performed by: [facility], [address] [place] [phone] Lymphocyte pct 13.2 % [facility] Comment: Interpretive Data Percent cell count reference ranges are not reported, since discordance with absolute values may lead to misinterpretation of CBC data. Current Interpretive Data was last revised on 2017. Testing performed by: [facility], [address] [place] [phone] Monocyte pct 7.1 % [facility] Comment: Interpretive Data Percent cell count reference ranges are not reported, since discordance with absolute values may lead to misinterpretation of CBC data. Current Interpretive Data was last revised on 2017. Testing performed by: [facility], [address] [place] [phone] Eosinophil pct 1.8 % [facility] Comment: Interpretive Data Percent cell count reference ranges are not reported, since discordance with absolute values may lead to misinterpretation of CBC data. Current Interpretive Data was last revised on 2017. Testing performed by: [facility], [address] [place] [phone] Basophil pct 1.2 % [facility] Comment: Interpretive Data Percent cell count reference ranges are not reported, since discordance with absolute values may lead to misinterpretation of CBC data. Current Interpretive Data was last revised on 2017. Testing performed by: [facility], [address] [place] [address] Blood 04/25/2024 9:40 AM RN NIGHT 04/25/2024 9:45 AM RN NIGHT us Gautam Cope MD LAB BLOOD ORDERABLES Final Resul t [facility] Department [place] [address] * (ABNORMAL) CBC with auto differential (04/25/2024 9:40 AM RN NIGHT) WBC 11.9(H) 3.8 - 9.9 K/cumm Comment:Testing performed by : [facility], [address] [place] [address] Hgb 12.2(L) 13.0 - 17.5 g/dL [facility] Comment:Testing performed by : [facility], [address] [place] [address] Hct 38.8(L) 38.9 - 50.3 % [facility]ER[facility]J Comment:Testing performed by : [facility], [address] [place], [place] [phone] Plt 369 150 - 400 K/cumm [facility]ER[facility]J Comment:Testing performed by : [facility], [address] [place] [address] MPV 7.7 6.8 - 10.4 fL [facility] Comment:Testing performed by : [facility], [address] [place], [place] [phone] RBC 4.38 4.30 - 5.80 M/cumm [facility] Comment:Testing performed by : [facility], [address] [place], [place] [phone] MCV 88.6 81.3 - 96.4 fL [facility] Comment:Testing performed by : [facility], [address] [place], [place] [phone] MCH 27.8 27.1 - 33.3 pg [facility]ER[facility]J Comment:Testing performed by : [facility], [address] [place] [address] MCHC 31.3(L) 32.3 - 35.7 g/dL [facility] Comment:Testing performed by : [facility], [address] [place] [address] RDW CV 14.7 11.1 - 14.9 % [facility] Comment:Testing performed by : [facility], [address] [place] [address] NRBC abs 0.00 0.00 - 0.01 K/cumm [facility] Comment:Testing performed by : [facility], [address] [place] [address] Blood 04/25/2024 9:40 AM RN NIGHT 04/25/2024 9:45 AM RN NIGHT us Gautam Cope MD LAB BLOOD ORDERABLES Final Resul t [facility] Department [place] [address] * Dexa TBS Axial Skeleton Bone Density 1 or more sites (04/24/2024 11:56 AM RN NIGHT) Anatomical Region Laterality Modality Wrist, Body N/A Radiographic Roberta ging Narrative 04/24/2024 12:52 PM RN NIGHT Patient Name: David Wei Date of : 1940 Date of scan: 04/24/2024 Bone mineral density was performed on a [email or web address] Discovery Densitometer. Based on machine cross-calibration and [...] by the International Society of Clinical Densitometry. [id number] us Daquan George MD IM DXA PROCEDURES Final Result * (ABNORMAL) Lipid panel (03/08/2023 11:55 AM RN NIGHT) [facility] Cholesterol 193 30 - 199 mg/dL [facility] Comment: Interpretive Data Ages < or = [...] revised on 2017. Triglycerides 250(H) <=149 mg/dL [facility] Comment: Interpretive Data Ages < [...] revised on 2017. HDL 36(L) >=40 mg/dL [facility] Comment: Interpretive Data Ages < [...] on 2017. LDL, calculated 107 <=129 mg/dL [facility] Comment: Interpretive Data Ages < [...] revised on 2017. Non-HDL Cholesterol 157 mg/dL [facility] Comment: Interpretive Data Ages < [...] last revised on 2017. Chol/HDL ratio 5 [facility] Blood 03/08/2023 11:5 5 AM RN NIGHT 03/08/2023 3:48 PM RN NIGHT Kraig Ching MD LAB BLOOD ORDERABLES Final Re sult Performing Organization Address [facility] de Phone Number [facility] Department of Laboratories [place] [address] * (ABNORMAL) Albumin Creatinine Ratio, Urine (01/01/2023 10:40 AM CDT) Albumin Ur 227.3 mg/L [facility] Comment: Interpretive Data No reference range established. Current interpretive data was last revised 2018. Creatinine Ur 66.5 mg/dL [facility] Comment: Interpretive Data No reference range established. Current interpretive data was last revised 2018. Albumin Creatinine Ratio, Ur 342(H) 1 - 29 mg/g [facility] Urine 01/01/2023 10:4 0 AM CDT 01/01/2023 10:45 AM CDT Kraig Ching MD LAB URINE ORDERABLES Final Re sult Performing Organization Address [facility] Co de Phone Number [facility] Department [place] [address] * DIABETES EYE EXAM (06/29/2018) [facility] Diabetic Eye Exam Normal us Historical Provider HEALTH MAINTENANCE Final Result from Last 3 Months or Most Recently Relevant to Health Maintenance Insurance T MEDICARE T MEDICARE T MEDICARE [employer] MEDICARE Advance Directives For more information, please contact: [phone] * Full Code (Latest Code Status on File) Date Activated Date Inactivated Comments 12/16/2017 2:44 PM 12/16/2017 7:18 PM Care Teams Underwriting Service Representative Relationship Specialty Start Date End Date Kraig Ching MD [address] [place] [address] PCP - General 07/10/16 Gautam Cope MD [address] [place] [address] Medical Oncologist/Chimney Construction Supervisor Medical Oncology 08/18/18 Tramaine Roe MD [address] [place] [address] Referring Physician Urology 08/18/18 Sukhwinder Uribe MD [address] [facility] [address] [place] [address] Consulting Physician Urology 08/18/18 Shay Guillermo MD [address] [facility] [address] [place] [address] Referring Physician Urology 08/18/18 Marsha Landis, RN Registered Nurse 11/17/18
--- OUTSIDE RECORDS SUMMARY | 2024-07-20 20:06 | XMS_ITS | Encounter Summary ---
Author Organization [facility] Address [address] [place] [address] Phone Care Team Providers Care Communication Arts Lecturer Name Role Phone Kraig Ching MD Primary Care Provider [phone] Gautam Cope MD Unavailable Tramaine Roe MD Unavailable [phone] Sukhwinder Uribe MD Unavailable [phone] Shay Gulilermo MD Unavailable [phone] Marsha Landis RN Unavailable Unavailab Clarissa Harry RN Unavailable [phone] Encounter Details Date Type Department Care [...] on file Legal Sex Male 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 [address] [place] [address] PCP - General 07/10/16 Gautam Cope MD [address] [facility] [address] [place] [address] Medical Oncologist/Reverse Logistics Analyst Medical Oncology 08/18/18 Tramaine Roe MD [address] [facility] [address] [place] [address] Referring Physician Urology 08/18/18 Sukhwinder Uribe MD [address] [facility] [address] [place] [address] Consulting Physician Urology 08/18/18 Shay Guillermo MD [address] [facility] [address] [place] [address] Referring Physician Urology 08/18/18 Marsha Landis RN Registered Nurse 11/17/18 Clarissa Luna RN [address] [place] [address] [address] [place] [address] Ecommerce Merchandising Manager 04/04/24 04/26/24 documented as of this encounter
--- OUTSIDE RECORDS SUMMARY | 2024-07-20 20:06 | XMS_ITS | Clinical Summary ---
Author Organization [facility] Address [address] [place] [address] Care Team Providers Care Ese Teacher Name Role Phone Kraig Ching MD Primary Care Provider [phone] Gautam Cope MD Unavailable Tramaine Roe MD Unavailable [phone] Sukhwinder Uribe MD Unavailable [phone] Shay Guillermo MD Unavailable Marsha Landis RN Unavailable Unavailab le Allergies [...] THREE TIMES DAILY BEFORE MEALS 3 mL 05/05/19 24 Active predniSONE (DELTASONE) 5 mg tablet Take 1 tablet (5 mg) by mouth two times a day 60 tablet 08/12/19 24 Active carvediloL (COREG) 12.5 mg tablet Take 1 tablet (12.5 mg total) by mouth 2 (two) times a day with meals 60 tablet 10/05/19 24 025 Active lisinopriL (PRINIVIL,ZEST RIL) [...] 05/30/2024 Assessment & Plan (06/08/2024 4:46 AM TECHNICAL SERVICE REPRESENTATIVE): Continue current regimen.Limit nephrotoxins.Reviewed creatinine. Avoid NSAIDS. [...] 03/08/2023 Assessment & Plan (06/08/2024 4:46 AM TECHNICAL SERVICE REPRESENTATIVE): Hypertension is controlled. Continue current regimen. Assessment & Plan (10/05/2023 12:54 PM CDT): Hypertension is controlled. Decrease carvedilol to 12.5 mg. Assessment & Plan (03/08/2023 7:11 AM TECHNICAL SERVICE REPRESENTATIVE): Hypertension is controlled. Continue current regimen. 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 Avoid NSAIDS. Assessment & Plan (10/05/2023 5:50 AM CDT): Continue current regimen.Limit nephrotoxins.Reviewed creatinine. Avoid NSAIDS. Assessment & Plan (03/08/2023 7:12 AM TECHNICAL SERVICE REPRESENTATIVE): Continue current regimen.Limit nephrotoxins.Reviewed creatinine. Avoid NSAIDS. CKD (chronic kidney disease) 03/08/2022 Assessment & Plan (06/08/2024 4:45 AM TECHNICAL SERVICE REPRESENTATIVE): Limit nephrotoxins. Monitor creatinine. Avoid NSAIDS.Follow with Nephrology. 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 chronic kidney disease 2021 Gastroesophageal reflux disease 04/08/2021 Assessment & Plan (03/08/2023 11:17 AM TECHNICAL SERVICE REPRESENTATIVE): Reviewed dietary modifications. Continue PPI. Assessment & Plan (08/18/2022 6:36 AM CDT): Reviewed dietary modifications. Continue PPI. Assessment & Plan (02/12/2022 6:03 AM CDT): Reviewed dietary modifications. Continue PPI. Assessment & Plan (04/08/2021 5:55 AM TECHNICAL SERVICE REPRESENTATIVE): Reviewed dietary modifications. Continue PPI. 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 Continue home PT exercises. Advised using a walker. Assessment & Plan (08/18/2022 11:47 AM CDT): Continue oxycodone. Continue home PT exercises. Advised using a walker. Assessment & Plan (02/12/2022 11:41 AM CDT): Continue oxycodone. Continue home PT exercises. A prescription for a walker. Assessment & Plan (04/08/2021 5:55 AM TECHNICAL SERVICE REPRESENTATIVE): Continue oxycodone. Continue home PT exercises. Continue walker. Assessment & Plan (12/26/2020 10:48 AM CDT): Continue oxycodone. Script for walker. Assessment & Plan (09/26/2020 11:29 AM CDT): Continue ROM exercises and follow with Pain Management. Refill oxycodone as needed. Prostate cancer 09/06/2018 Assessment & Plan (06/08/2024 4:46 AM TECHNICAL SERVICE REPRESENTATIVE): Follow with Oncology. Continue Zytiga. Assessment & [...] 01/25/2018 Assessment & Plan (03/07/2018 6:54 AM TECHNICAL SERVICE REPRESENTATIVE): Hypertension is controlled. Continue current regimen. CHF [...] creatinine. Assessment & Plan (04/08/2021 5:54 AM TECHNICAL SERVICE REPRESENTATIVE): Hypertension is controlled. Continue current regimen.Limit nephrotoxins. [...] NSAIDS. Assessment & Plan (03/07/2018 6:55 AM TECHNICAL SERVICE REPRESENTATIVE): Hypertension is controlled. Continue current regimen. Limit nephrotoxins. Monitor creatinine. Avoid NSAIDS. Assessment & Plan (11/25/2017 7:09 AM CDT): Limit nephrotoxins. Monitor creatinine. Avoid NSAIDS. Duodenal ulcer 11/25/2017 Assessment & Plan (11/25/2017 10:16 AM CDT): Reviewed GI note . Continue pantoprazole. Avoid NSAIDS. Refer for EGD. PAF (paroxysmal atrial fibrillation) 10/22/2017 Assessment & Plan (03/07/2018 6:54 AM TECHNICAL SERVICE REPRESENTATIVE): Continue rate control. Continue anticoagualtion. Anticipate starting [...] NSAIDS. Assessment & Plan (03/07/2018 6:55 AM TECHNICAL SERVICE REPRESENTATIVE): Limit nephrotoxins. Monitor creatinine. Avoid NSAIDS. Assessment [...] diet. Assessment & Plan (04/08/2021 10:17 AM TECHNICAL SERVICE REPRESENTATIVE): Reviewed HgBA1C elevated at 10.6 on 04/01/21. [...] therapy. Assessment & Plan (03/07/2018 6:57 AM TECHNICAL SERVICE REPRESENTATIVE): Continue pravastatin. He had myalgias on other [...] diet. Assessment & Plan (03/02/2017 6:53 AM TECHNICAL SERVICE REPRESENTATIVE): Hypertension is controlled. Continue current regimen. Reviewed low sodium diet. Assessment & Plan (01/15/2017 6:44 AM CDT): Reviewed proper diet. Continue statin therapy. Hyperlipidemia 01/12/2012 Assessment & Plan (06/08/2024 4:46 AM TECHNICAL SERVICE REPRESENTATIVE): Continue pravastatin. Order lipid panel at next [...] 05/28/2023 Assessment & Plan (03/08/2023 11:40 AM TECHNICAL SERVICE REPRESENTATIVE): Agree with cataract surgery. He has 1st [...] 08/30/2017 Assessment & Plan (03/02/2017 10:48 AM TECHNICAL SERVICE REPRESENTATIVE): Mood is improved. Monitor off medication. Impotence [...] 200. Assessment & Plan (03/07/2018 6:56 AM TECHNICAL SERVICE REPRESENTATIVE): Continue current regimen. Advised annual eye exam.Limit [...] - 07/19/2024 11:59 PM CDT Hospital Encounter [address] [address] Urinary frequency Discharge Disposition: Discharge to home or self care 07/19/2024 2:00 PM CDT Office Visit [facility] at [address] [phone] Clau Childers PA Urinary frequency (Primary Dx); Leukocytosis, unspecified type 07/18/2024 1:45 PM CDT Infusion [facility] - Infusion [address] [facility] Floor 6 [place] [address] Prostate cancer (HCC) (Primary Dx) 07/18/2024 1:00 PM CDT Office Visit [facility] [address] [place] [address] Floor 5 [place] [phone] Gautam Cope MD Prostate cancer (HCC) (Primary Dx) 07/18/2024 12:00 PM CDT Lab [facility] - Lab Collection [facility] [address] [place] [address] Prostate cancer (HCC) 07/18/2024 Patient Self-Triage [facility] [address] [place] [address] Mychart, Generic Provider 07/01/[address] [facility] [address] [place] [address] Scanning, Provider 06/14/2024 6:15 PM TECHNICAL SERVICE REPRESENTATIVE Lab [facility] ([facility]) [address] [place] [phone] GABRIELA (acute kidney injury) 06/14/2024 3:00 PM TECHNICAL SERVICE REPRESENTATIVE Office Visit [facility] [address] [place] [address] Medicine 5th [place] [address] [place] [phone] Lin Guerrero MD Chronic kidney disease, stage 3b (HCC) (Primary Dx); GABRIELA (acute kidney injury); Hypertension, essential; Secondary hyperparathyroidism of renal origin 06/08/2024 12:00 PM TECHNICAL SERVICE REPRESENTATIVE Lab [facility] ([facility]) [address] [place] [phone] 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 chronic kidney disease (HCC); Hypertension, essential; Secondary hyperparathyroidism of renal origin; Stage 3 chronic kidney disease, unspecified whether stage 3a or 3b CKD (HCC); Primary hypertension; Vitamin D deficiency; Type 2 diabetes mellitus with stage 3a chronic kidney disease, with long-term current use of insulin (HCC); Fatigue, unspecified type; GABRIELA (acute kidney injury) 06/08/2024 9:45 AM TECHNICAL SERVICE REPRESENTATIVE Office Visit [address] [place] [address] Kraig Ching MD Hypertension, essential (Primary Dx); Prostate cancer (HCC); Type 2 diabetes mellitus with stage 3b chronic kidney disease, with long-term current use of insulin (HCC); Stage 3b chronic kidney disease (HCC); Hyperlipidemia, unspecified hyperlipidemia type 05/24/2024 Orders Only [facility] [address] [place] [address] [place] [address] [place] [address] Lin Guerrero MD 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 [...] type; GABRIELA (acute kidney injury) 05/02/[address] [address] Kraig Ching MD Medical Question/Miscellaneous 04/28/[address] 5th [place] [address] Stef Roman NP 04/28/2024 Orders Only [address] [place] [address] Stef Roman NP 04/25/2024 11:45 AM TECHNICAL SERVICE REPRESENTATIVE Infusion [facility] - Infusion [address] [facility] Floor 5 [place] [address] Prostate cancer (HCC) (Primary Dx) 04/25/2024 10:45 AM TECHNICAL SERVICE REPRESENTATIVE Office Visit [facility] [address] [facility] Floor [address] [place] [phone] Gautam Cope MD Prostate cancer (HCC) 04/25/2024 9:45 AM TECHNICAL SERVICE REPRESENTATIVE Lab [facility] - Lab Collection [address] [facility] Floor [address] [place] [address] Prostate cancer (HCC) 04/24/2024 12:20 PM TECHNICAL SERVICE REPRESENTATIVE Office Visit [address] 5th [place] [address] [place] [phone] Daquan George MD Age-related osteoporosis without current pathological fracture (Primary Dx); Alkaline phosphatase elevation; Thyroid condition 04/24/2024 11:50 AM TECHNICAL SERVICE REPRESENTATIVE Clinical Support [address] [place] [address] [place] [phone] Age-related osteoporosis without current pathological fracture (Primary Dx) 04/24/[address] 5th [place] [address] [place] [phone] Daquan George MD from Last 3 Months Immunizations Immunization Administration Dates Next Due Influenza, Quad, Adjuvantate d, Intramuscular 02/22/2021 Influenza, Quadrivalent, Amelia l Culture-based MDCK, Preservative Free, Antibiotic Free, Intramuscular 02/06/2020 Influenza, Quadrivalent, Hig h Dose, Preservative Free, Intrr 12/21/2022,02/12/2022 Influenza, Quadrivalent, Spl it, Preservative Free, Intramuscular 01/14/2015 Influenza, Trivalent, High D ose, Split, Preservative Free, Intramuscular 01/17/2019 Influenza, Unspecified 01/17/2019(Deferred: Daisy ent Refused) [employer] ([employer]) SARS-CoV-2 Vaccination 06/14/2020, 06/14/2020 Pfizer SARS-CoV-2 [...] pur e alcohol) Occasional glass of wine. [facility] Utilities Answer Date Recorded In the past 12 months has [employer]STATZ, gas, oil, or water [email or web address] threatened to shut off services in your [...] 04/04/2024 How often do you attend chur or jewish services? Never 04/04/2024 Do you belong to any clubs o r organizations such as anglican groups, unions, fraternal or athletic groups, or [...] you homeless or living in a senior living (including now)? No 04/04/2024 Personal Safety Answer Date Recorded Have you ever been in or are you currently in a harmful physical or emotional relationship or is someone making you feel afraid or unsafe? Denies 06/09/2023 Sex and Gender Information Value Date Recorded Sex Assigned at Not on file Legal Sex Male 4:46 PM TECHNICAL SERVICE REPRESENTATIVE Gender Identity Not on file [...] cm (5' 9 ) 06/14/2024 2:58 PM TECHNICAL SERVICE REPRESENTATIVE Body Mass Index 29.98 06/14/2024 2:58 PM TECHNICAL SERVICE REPRESENTATIVE Plan of Treatment Health Maintenance Due Date [...] , 06/29/2018, Additional history exists Influenza Vaccine (Season Ended) 2024 12/21/2022, 02/12/2022, 02/22/2021, Additional history exists Covid-19 Vaccine ( season) 2025 03/07/2022, 10/24/2021, 03/05/2021, Additional history exists Postponed from 12/12/2023 (Patient declined, but will receive in the future) Hemoglobin A1C 01/17/2025 07/18/2024, 04/12, 10/19/2023, Additional history exists Depression Screening 06/08/2025 06/08/2024, 01/10/2024, 03/08/2023, Additional history exists Fall Risk Assessment 06/08/2025 06/08/2024, 06/09/2023, 03/08/2023, Additional history exists Foot Exam 06/08/2025 06/08/2024, 12/13, 08/19/2023, Additional history exists eGFR 07/18/2025 07/18/2024, 0308/2024, 06/08/2024, Additional history exists Pneumococcal vaccine 65+ Completed 08/08/2021, 11/2018 Goals Goal Patient Goal Type Associated Problems Recent Progress Patient-Stated? Author ZAK General Goal - Patient establishes care with [facility] ACO Care Management On track(2023 1:22 PM TECHNICAL SERVICE REPRESENTATIVE) No Clarissa Luna RN Note: Problem: Lack of [facility] communication Interventions: - Provide coordination between [facility] company and patient. - Ensure [facility] has appropriate referral and orders to establish care with patient. - Follow up with patient to ensure initial visit was completed by [facility] and that a [facility] plan has been started. ZAK General Goal - Patient schedules and keeps appointments with all recommended providers ACO Care Management Improving( 1:22 PM TECHNICAL SERVICE REPRESENTATIVE) No Clarissa Luna RN Note: Problem: Potential [...] medication regimen. Medical Devices Implanted Type Area Air Launch Weapons Technician Device Identifier Shelf Expiration Date Model / Serial / Lot [employer] Lens Iol Cna0t0.195 Clareon [employer]onom Cna0t0.195 - [id number] - [id number] Implanted:Qty: 1 on 06/09/2023 by Higinio Connolly MD at [facility] Lens Right: Eye [employer] [id number] 10/27/2025 CNA0T0.19 5 / [id number] / [employer] Lens Iol Cna0t0.200 [employer]onom Cna0t0.200 - [id number] - [id number] Implanted:Qty: 1 on 05/19/2023 by Higinio Connolly MD at [facility] Left: Eye [employer] [id number] 10/06/2025 CNA0T0.20 0 / [id number] / Procedures Procedure Name Priority Date/Time [...] AM CDT EGFR Routine 06/14/2024 3:48 PM TECHNICAL SERVICE REPRESENTATIVE GABRIELA (acute kidney injury) RENAL FUNCTION PANEL Routine 06/14/2024 3:48 PM TECHNICAL SERVICE REPRESENTATIVE GABRIELA (acute kidney injury) URINALYSIS AND REFLEX TO MICROSCOPIC Routine 06/08/2024 10:47 AM TECHNICAL SERVICE REPRESENTATIVE 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 chronic kidney disease (HCC) Hypertension, essential Secondary hyperparathyroidism of renal origin Stage 3 chronic kidney disease, unspecified whether stage 3a or 3b CKD (HCC) Primary hypertension Vitamin D deficiency Type 2 diabetes mellitus with stage 3a chronic kidney disease, with long-term current use of insulin (HCC) Fatigue, unspecified type GABRIELA (acute kidney injury) EGFR Routine 06/08/2024 10:44 AM TECHNICAL SERVICE REPRESENTATIVE 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 chronic kidney disease (HCC) Hypertension, essential Secondary hyperparathyroidism of renal origin Stage 3 chronic kidney disease, unspecified whether stage 3a or 3b CKD (HCC) Primary hypertension Vitamin D deficiency Type 2 diabetes mellitus with stage 3a chronic kidney disease, with long-term current use of insulin (HCC) Fatigue, unspecified type GABRIELA (acute kidney injury) DIFFERENTIAL AUTO Routine 06/08/2024 10:44 AM TECHNICAL SERVICE REPRESENTATIVE 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 chronic kidney disease [...] RENAL FUNCTION PANEL Routine 06/08/2024 10:44 AM TECHNICAL SERVICE REPRESENTATIVE 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 chronic kidney disease [...] D 25 HYDROXY Routine 06/08/2024 10:44 AM TECHNICAL SERVICE REPRESENTATIVE 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 chronic kidney disease [...] WITH AUTO DIFFERENTIAL Routine 06/08/2024 10:44 AM TECHNICAL SERVICE REPRESENTATIVE 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 chronic kidney disease (HCC) Hypertension, essential Secondary hyperparathyroidism of renal origin Stage 3 chronic kidney disease, unspecified whether stage 3a or 3b CKD (HCC) Primary hypertension Vitamin D deficiency Type 2 diabetes mellitus with stage 3a chronic kidney disease, with long-term current use of insulin (HCC) Fatigue, unspecified type GABRIELA (acute kidney injury) PTH Routine 06/08/2024 10:44 AM TECHNICAL SERVICE REPRESENTATIVE 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 chronic kidney disease [...] RATIO, URINE, RANDOM Routine 06/08/2024 10:44 AM TECHNICAL SERVICE REPRESENTATIVE 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 chronic kidney disease (HCC) Hypertension, essential Secondary hyperparathyroidism of renal origin Stage 3 chronic kidney disease, unspecified whether stage 3a or 3b CKD (HCC) Primary hypertension Vitamin D deficiency Type 2 diabetes mellitus with stage 3a chronic kidney disease, with long-term current use of insulin (HCC) Fatigue, unspecified type GABRIELA (acute kidney injury) EGFR STAT 04/25/2024 9:45 AM TECHNICAL SERVICE REPRESENTATIVE Prostate cancer (HCC) VITAMIN D 25 HYDROXY Routine 04/25/2024 9:45 AM TECHNICAL SERVICE REPRESENTATIVE Prostate cancer (HCC) TOTAL TESTOSTERONE Routine 04/25/2024 9:45 AM TECHNICAL SERVICE REPRESENTATIVE Prostate cancer (HCC) HEMOGLOBIN A1C Routine 04/25/2024 9:45 AM TECHNICAL SERVICE REPRESENTATIVE Prostate cancer (HCC) VITAMIN B12 Routine 04/25/2024 9:45 AM TECHNICAL SERVICE REPRESENTATIVE Prostate cancer (HCC) LACTATE DEHYDROGENASE Routine 04/25/2024 9:45 AM TECHNICAL SERVICE REPRESENTATIVE Prostate cancer (HCC) COMPREHENSIVE METABOLIC PANEL STAT 04/25/2024 9:45 AM TECHNICAL SERVICE REPRESENTATIVE Prostate cancer (HCC) PSA DIAGNOSTIC Routine 04/25/2024 9:45 AM TECHNICAL SERVICE REPRESENTATIVE Prostate cancer (HCC) DIFFERENTIAL AUTO Routine 04/25/2024 9:40 AM TECHNICAL SERVICE REPRESENTATIVE Prostate cancer (HCC) CBC WITH AUTO DIFFERENTIAL Routine 04/25/2024 9:40 AM TECHNICAL SERVICE REPRESENTATIVE Prostate cancer (HCC) DEXA TBS AXIAL SKELETON BONE DENSITY 1 OR MORE SITES Schedule Routine, Read Routine (OP Routine) 04/24/2024 11:56 AM TECHNICAL SERVICE REPRESENTATIVE Age-related osteoporosis without current pathological fracture LIPID PANEL Routine 03/08/2023 11:55 AM TECHNICAL SERVICE REPRESENTATIVE Hyperlipidemia, unspecified hyperlipidemia type ALBUMIN CREATININE RATIO, [...] Large Ketones, ur, POC Negative Negative Specific [place], POC 1.015 1.003 - 1.030 Blood, ur, POC Hemolyzed, trace(A) Negative pH, ur, POC 6.0 5.0 - 8.0 Protein, ur, POC 30.(A) Negative Urobilinogen, urine, POC 0.2 0.2 - 1.0 mg/dL Nitrite, ur, POC Negative Negative Leukocytes, ur, POC Negative Negative Lot Number [id number] Urine 07/19/2024 2:16 PM CDT us Clau ESQUIVEL POINT OF CARE TEST ORDER [...] BLOOD ORDERABLES Final Resul t [facility] [place] [address] * (ABNORMAL) Differential, auto (07/18/2024 12:07 PM CDT) Neutrophil abs 17.55(H) 1.50 - 6.50 K/cumm Comment:Testing performed by : [facility], [address] [place] [phone] Lymphocyte abs 0.96 0.80 - 3.30 K/cumm [facility] Comment:Testing performed by : [facility], [address] [place] [address] Monocyte abs 1.48(H) 0.20 - 0.80 K/cumm [facility] Comment:Testing performed by : [facility], [address] [place], [place] [id number] Eosinophil abs 0.06 0.00 - 0.50 K/cumm [facility] Comment:Testing performed by : [facility], [address] [place], [place] [id number] Basophil abs 0.03 0.00 - 0.10 K/cumm [facility] Comment:Testing performed by : [facility], [address] [place], [place] [id number] Neutrophil pct 87.4 % [facility] Comment: Interpretive Data Percent cell count reference ranges are not reported, since discordance with absolute values may lead to misinterpretation of CBC data. Current Interpretive Data was last revised on 2017. Testing performed by: [facility], [address] [place], [place] [id number] Lymphocyte pct 4.8 % [facility] Comment: Interpretive Data Percent cell count reference ranges are not reported, since discordance with absolute values may lead to misinterpretation of CBC data. Current Interpretive Data was last revised on 2017. Testing performed by: [facility], [address] [place] [address] Monocyte pct 7.4 % [facility] Comment: Interpretive Data Percent cell count reference ranges are not reported, since discordance with absolute values may lead to misinterpretation of CBC data. Current Interpretive Data was last revised on 2017. Testing performed by: [facility], [address] [place] [address] Eosinophil pct 0.3 % [facility] Comment: Interpretive Data Percent cell count reference ranges are not reported, since discordance with absolute values may lead to misinterpretation of CBC data. Current Interpretive Data was last revised on 2017. Testing performed by: [facility], [address] [place] [address] Basophil pct 0.2 % [facility] Comment: Interpretive Data Percent cell count reference ranges are not reported, since discordance with absolute values may lead to misinterpretation of CBC data. Current Interpretive Data was last revised on 2017. Testing performed by: [facility], [address] [place] [address] Blood 07/18/2024 12:0 7 PM CDT 07/18/2024 12:22 PM CDT us Gautam Cope MD LAB BLOOD ORDERABLES Final Resul t [facility] Department [place] [address] * (ABNORMAL) CBC with auto differential (07/18/2024 12:07 PM CDT) WBC 20.09(H) 3.80 - 9.90 K/cumm Comment:Testing performed by : [facility], [address] [place] [address] Hgb 12.1(L) 13.0 - 17.5 g/dL [facility] Comment:Testing performed by : [facility], [address] [place] [address] Hct 38.2(L) 38.9 - 50.3 % [facility] Comment:Testing performed by : [facility], [address] [place] [address] Plt 451(H) 150 - 400 K/cumm [facility] Comment:Testing performed by : [facility], [address] [place] [address] MPV 7.7 6.8 - 10.4 fL [facility] Comment:Testing performed by : [facility], [address] [place] [address] RBC 4.46 4.30 - 5.80 M/cumm [facility] Comment:Testing performed by : [facility], [address] [place] [phone] MCV 85.5 81.3 - 96.4 fL [facility] Comment:Testing performed by : [facility], [address] [place], [place] [phone] MCH 27.1 27.1 - 33.3 pg [facility] Comment:Testing performed by : [facility], [address] [place], [place] [phone] MCHC 31.7(L) 32.3 - 35.7 g/dL [facility] Comment:Testing performed by : [facility], [address] [place], [place] [phone] RDW CV 14.9 11.1 - 14.9 % [facility] Comment:Testing performed by : [facility], [address] [place], [place] [phone] NRBC abs 0.00 0.00 - 0.01 K/cumm [facility] Comment:Testing performed by : [facility], [address] [place], [place] [id number] Blood 07/18/2024 12:0 7 PM CDT 07/18/2024 12:22 PM CDT us Gautam Cope MD LAB BLOOD ORDERABLES Final Resul t [facility] [place] [address] * PSA diagnostic (07/18/2024 12:07 PM CDT) [...] Final Resul t Performing Organization Address [facility] de Phone Number [facility] [place] [address] * Lactate dehydrogenase (LD) (07/18/2024 12:07 PM CDT) Lactate dehydrogenase (LDH) 216 100 - 250 Units/L Blood 07/18/2024 12:0 7 PM CDT 07/18/2024 12:25 PM CDT Result Tenisha Cpoe MD LAB BLOOD ORDERABLES Final Resul t Performing Organization Address [facility] Phone Number [facility] [place] [address] * (ABNORMAL) Hemoglobin A1c (07/18/2024 12:07 PM CDT) Hgb A1C 8.0(H) 4.0 - 5.6 % Estimated Average Glucose 183 mg/dL [facility] Comment: The ADA recommends reporting [...] Final Resul t Performing Organization Address [facility] de Phone Number [facility] [place] [address] * (ABNORMAL) Comprehensive metabolic panel (07/18/2024 12:07 PM CDT) Sodium 142 135 - 145 mmol/L Potassium, pl 4.6 3.3 - 4.9 mmol/L [facility] Chloride 106 97 - 110 mmol/L [facility] CO2 24 22 - 32 mmol/L [facility] Anion gap 12 2 - 15 mmol/L [facility] BUN 52(H) 6 - 25 mg/dL [facility] Creatinine 2.66(H) 0.80 - 1.30 mg/dL [facility] Glucose 164 70 - 199 mg/dL [facility] 2022. Calcium 9.0 8.5 - 10.3 mg/dL [facility] Bilirubin, total 0.5 0.1 - 1.2 mg/dL [facility] Protein, pl 6.7 6.5 - 8.5 g/dL [facility] Albumin 4.0 3.5 - 5.0 g/dL [facility] Alk phos 126 40 - 130 Units/L [facility] ALT 10 7 - 55 Units/L [facility] AST 13 10 - 50 Units/L [facility] Blood 07/18/2024 12:0 7 PM CDT 07/18/2024 12:25 PM CDT us Gautam Cope MD LAB BLOOD ORDERABLES Final Resul t [facility] [place] [address] * SCAN - RADIOLOGY/IMAGING (07/01/2024 9:44 AM CDT) Anatomical Region Laterality Modality Other us Provider Scanning Final Result * (ABNORMAL) eGFR (06/14/2024 3:48 PM TECHNICAL SERVICE REPRESENTATIVE) eGFR 26(L) >=60 mL/min/1. 73 m2 Comment: [...] last reviewed 2021. Blood 06/14/2024 3:48 PM TECHNICAL SERVICE REPRESENTATIVE 06/14/2024 4:07 PM TECHNICAL SERVICE REPRESENTATIVE Lin Guerrero MD LAB BLOOD ORDERABLES Final Resul t [facility] [place] [address] * (ABNORMAL) Renal function panel (06/14/2024 3:48 PM TECHNICAL SERVICE REPRESENTATIVE) Sodium 143 135 - 145 mmol/L Potassium, pl 5.0(H) 3.3 - 4.9 mmol/L [facility] Chloride 105 97 - 110 mmol/L [facility] CO2 28 22 - 32 mmol/L [facility] Anion gap 10 2 - 15 mmol/L [facility] BUN 48(H) 6 - 25 mg/dL [facility] Creatinine 2.42(H) 0.80 - 1.30 mg/dL [facility] [...] 2022. Calcium 8.7 8.5 - 10.3 mg/dL [facility] Phosphorus, pl 3.1 2.3 - 4.5 mg/dL [facility] Albumin 3.9 3.5 - 5.0 g/dL [facility] Blood 06/14/2024 3:48 PM TECHNICAL SERVICE REPRESENTATIVE 06/14/2024 4:03 PM TECHNICAL SERVICE REPRESENTATIVE us Lin Guerrero MD LAB BLOOD ORDERABLES Final Resul t [facility] [place] [address] * Urinalysis reflex to microscopic (06/08/2024 10:47 AM TECHNICAL SERVICE REPRESENTATIVE) Color, ur Straw Yellow Clarity, ur Clear Clear [facility] Specific gravity, ur 1.012 1.003 - 1.030 [facility] pH, urine 6.0 [facility] Comment: Interpretive Data U rine pH is affected by diet, medications, systemic acid-base disturbances, and renal tubular function. pH may affect urinary stone formation. For example, urine pH below 6.0 may help reduce the tendency for calcium phosphate stones and pH greater than 6.0 may reduce the tendency for uric acid stone formation. Source: [employer] Current Interpretive Data was last revised on 2017 Protein, ur ql Trace Negative [facility] Glucose, ur ql Negative Negative [facility] Ketones, ur Negative Negative [facility] Bilirubin, ur Negative Negative [facility] Blood, ur Negative Negative [facility] Urobilinogen, ur <2.0 <2.0 mg/dL [facility] Nitrite, ur Negative Negative [facility] Leukocyte esterase, ur Negative Negative [facility] UA reflex comment Reflex conditions for microscopic UA not met. [facility] Urine 06/08/2024 10:4 7 AM TECHNICAL SERVICE REPRESENTATIVE 06/08/2024 11:41 AM TECHNICAL SERVICE REPRESENTATIVE us Lin Guerrero MD LAB URINE ORDERABLES Final Resul t Performing Organization Address City/[facility]/ZIP Co de Phone Number [facility] [place] [address] * (ABNORMAL) eGFR (06/08/2024 10:44 AM TECHNICAL SERVICE REPRESENTATIVE) eGFR 22(L) >=60 mL/min/1. 73 m2 Comment: [...] reviewed 2021. Blood 06/08/2024 10:4 4 AM TECHNICAL SERVICE REPRESENTATIVE 06/08/2024 11:23 AM TECHNICAL SERVICE REPRESENTATIVE us Lin Guerrero MD LAB BLOOD ORDERABLES Final Resul t [facility] [address] * (ABNORMAL) Differential, auto (06/08/2024 10:44 AM TECHNICAL SERVICE REPRESENTATIVE) Neutrophil abs 7.8(H) 1.5 - 6.5 K/cumm Imm gran abs 0.1 0.0 - 0.1 K/cumm [facility] Lymphocyte abs 1.9 0.8 - 3.3 K/cumm [facility] Monocyte abs 1.0(H) 0.2 - 0.8 K/cumm [facility] Eosinophil abs 0.1 0.0 - 0.5 K/cumm [facility] Basophil abs 0.0 0.0 - 0.1 K/cumm [facility] Neutrophil pct 71.1 % [facility] Comment: Interpretive Data Percent cell count reference ranges are not reported, since discordance with absolute values may lead to misinterpretation of CBC data. Current Interpretive Data was last revised on 2017. Imm gran pct 0.8 % [facility] Comment: Interpretive Data Percent cell count reference ranges are not reported, since discordance with absolute values may lead to misinterpretation of CBC data. Current Interpretive Data was last revised on 2017. Lymphocyte pct 17.1 % [facility] Comment: Interpretive Data Percent cell count reference ranges are not reported, since discordance with absolute values may lead to misinterpretation of CBC data. Current Interpretive Data was last revised on 2017. Monocyte pct 9.3 % [facility] Comment: Interpretive Data Percent cell count reference ranges are not reported, since discordance with absolute values may lead to misinterpretation of CBC data. Current Interpretive Data was last revised on 2017. Eosinophil pct 1.3 % [facility] Comment: Interpretive Data Percent cell count reference ranges are not reported, since discordance with absolute values may lead to misinterpretation of CBC data. Current Interpretive Data was last revised on 2017. Basophil pct 0.4 % [facility] Comment: Interpretive Data Percent cell count reference ranges are not reported, since discordance with absolute values may lead to misinterpretation of CBC data. Current Interpretive Data was last revised on 2017. Blood 06/08/2024 10:4 4 AM TECHNICAL SERVICE REPRESENTATIVE 06/08/2024 11:23 AM TECHNICAL SERVICE REPRESENTATIVE Lin Guerrero MD LAB BLOOD ORDERABLES Final Resul t Performing Organization Address [facility] Co de Phone Number [facility] Department [place] [address] * (ABNORMAL) CBC with auto differential (06/08/2024 10:44 AM TECHNICAL SERVICE REPRESENTATIVE) [facility] WBC 11.0(H) 3.8 - 9.9 K/cumm Hgb 12.0(L) 13.0 - 17.5 g/dL [facility] Hct 36.9(L) 38.9 - 50.3 % [facility] Plt 357 150 - 400 K/cumm [facility] MPV 9.8 9.1 - 12.3 fL [facility] RBC 4.27(L) 4.30 - 5.80 M/cumm [facility] MCV 86.4 81.3 - 96.4 fL [facility] MCH 28.1 27.1 - 33.3 pg [facility] MCHC 32.5 32.3 - 35.7 g/dL [facility] RDW CV 14.1 11.1 - 14.9 % [facility] RDW SD 44.2 35.7 - 48.1 fL [facility] NRBC abs 0.00 0.00 - 0.01 K/cumm [facility] Blood 06/08/2024 10:4 4 AM TECHNICAL SERVICE REPRESENTATIVE 06/08/2024 11:23 AM TECHNICAL SERVICE REPRESENTATIVE Lin Guerrero MD LAB BLOOD ORDERABLES Final Resul t Performing Organization Address [facility]/ZIP Co de Phone Number [facility] Department [place] [address] * (ABNORMAL) Protein / creatinine ratio, urine, random (06/08/2024 10:44 AM TECHNICAL SERVICE REPRESENTATIVE) [facility] Protein, ur, quant 21.3 mg/dL Comment: Interpretive Data No reference range established. Current interpretive data was last revised 2018. Creatinine Ur 52.2 mg/dL [facility] Comment: Interpretive Data No reference range established. Current interpretive data was last revised 2018. Protein/creatinin e ratio 408.0(H) 0.0 - 180.0 mg/g CR [facility] Urine 06/08/2024 10:4 4 AM TECHNICAL SERVICE REPRESENTATIVE 06/08/2024 11:23 AM TECHNICAL SERVICE REPRESENTATIVE us Lin Guerrero MD LAB URINE ORDERABLES Final Resul t Performing Organization Address [facility] Co de Phone Number [facility] [place] [address] * Vitamin D 25 hydroxy (06/08/2024 10:44 AM TECHNICAL SERVICE REPRESENTATIVE) Vitamin D 25-OH 42 30 - 80 ng/mL Blood 06/08/2024 10:4 4 AM TECHNICAL SERVICE REPRESENTATIVE 06/08/2024 11:23 AM TECHNICAL SERVICE REPRESENTATIVE us Lin Guerrero MD LAB BLOOD ORDERABLES Final Resul t Performing Organization Address [facility] de Phone Number [facility] Department [place] [address] * (ABNORMAL) PTH (06/08/2024 10:44 AM TECHNICAL SERVICE REPRESENTATIVE) PTH 78(H) 15 - 65 pg/mL Blood 06/08/2024 10:4 4 AM TECHNICAL SERVICE REPRESENTATIVE 06/08/2024 11:23 AM TECHNICAL SERVICE REPRESENTATIVE us Lin Guerrero MD LAB BLOOD ORDERABLES Final Resul t Performing Organization Address [facility] de Phone Number [facility] [place] [address] * (ABNORMAL) Renal function panel (06/08/2024 10:44 AM TECHNICAL SERVICE REPRESENTATIVE) Sodium 142 135 - 145 mmol/L Potassium, pl 4.8 3.3 - 4.9 mmol/L [facility] Chloride 107 97 - 110 mmol/L [facility] CO2 27 22 - 32 mmol/L [facility] Anion gap 8 2 - 15 mmol/L [facility] BUN 60(H) 6 - 25 mg/dL [facility] Creatinine 2.72(H) 0.80 - 1.30 mg/dL [facility] Glucose 94 70 - 199 mg/dL [facility] [...] 2022. Calcium 9.0 8.5 - 10.3 mg/dL [facility] Phosphorus, pl 3.5 2.3 - 4.5 mg/dL [facility] Albumin 3.8 3.5 - 5.0 g/dL [facility] Blood 06/08/2024 10:4 4 AM TECHNICAL SERVICE REPRESENTATIVE 06/08/2024 11:23 AM TECHNICAL SERVICE REPRESENTATIVE us Lin Guerrero MD LAB BLOOD ORDERABLES Final Resul t [facility] [place] [address] * (ABNORMAL) eGFR (04/25/2024 9:45 AM TECHNICAL SERVICE REPRESENTATIVE) eGFR 28(L) >=60 mL/min/1. 73 m2 Comment: [...] last reviewed 2021. Blood 04/25/2024 9:45 AM TECHNICAL SERVICE REPRESENTATIVE 04/25/2024 9:51 AM TECHNICAL SERVICE REPRESENTATIVE Result Tenisha Cope MD LAB BLOOD ORDERABLES Final Resul t Performing Organization Address [facility] de Phone Number [facility] [place] [address] * (ABNORMAL) Vitamin D 25 hydroxy (04/25/2024 9:45 AM TECHNICAL SERVICE REPRESENTATIVE) Vitamin D 25-OH 22(L) 30 - 80 ng/mL Blood 04/25/2024 9:45 AM TECHNICAL SERVICE REPRESENTATIVE 04/25/2024 9:51 AM TECHNICAL SERVICE REPRESENTATIVE Result Tenisha Cope MD LAB BLOOD ORDERABLES Final Resul t Performing Organization Address [facility] de Phone Number [facility] Department [place] [address] * (ABNORMAL) Total testosterone (04/25/2024 9:45 AM TECHNICAL SERVICE REPRESENTATIVE) Testosterone <5.0(L) 193.0 - 740.0 ng/dL Blood 04/25/2024 9:45 AM TECHNICAL SERVICE REPRESENTATIVE 04/25/2024 11:20 AM TECHNICAL SERVICE REPRESENTATIVE Result Tenisha Cope MD LAB BLOOD ORDERABLES Final Resul t Performing Organization Address [facility]/ZIP Co de Phone Number [facility] [place] [address] * PSA diagnostic (04/25/2024 9:45 AM TECHNICAL SERVICE REPRESENTATIVE) Pathologist [facility] [place] PSA-Total <0.02 <=6.20 ng/mL Comment: Interpretive Data [...] last revised 21. Blood 04/25/2024 9:45 AM TECHNICAL SERVICE REPRESENTATIVE 04/25/2024 9:51 AM TECHNICAL SERVICE REPRESENTATIVE Gautam Cope MD LAB BLOOD ORDERABLES Final Resul t Performing Organization Address [facility] de Phone Number [facility] Department [place] [address] * Lactate dehydrogenase (LD) (04/25/2024 9:45 AM TECHNICAL SERVICE REPRESENTATIVE) [facility] Lactate dehydrogenase (LDH) 157 100 - 250 Units/L Blood 04/25/2024 9:45 AM TECHNICAL SERVICE REPRESENTATIVE 04/25/2024 9:51 AM TECHNICAL SERVICE REPRESENTATIVE us Gautam Cope MD LAB BLOOD ORDERABLES Final Resul t Performing Organization Address [facility] de Phone Number [facility] [place] [address] * (ABNORMAL) Hemoglobin A1c (04/25/2024 9:45 AM TECHNICAL SERVICE REPRESENTATIVE) Pathologist [facility] [place] Hgb A1C 8.1(H) 4.0 - 5.6 % Estimated Average Glucose 186 mg/dL [facility] Comment: The ADA recommends reporting an estimated Average Glucose (eAG) with all Hemoglobin A1c results using the equation derived from a study of 507 normal and diabetic adults. Minority populations were underrepresented and children were not included. (Diabetes Care 2020; 43(S1): S66-S76). The eAG is not equivalent to a fasting glucose. Blood 04/25/2024 9:45 AM TECHNICAL SERVICE REPRESENTATIVE 04/25/2024 9:51 AM TECHNICAL SERVICE REPRESENTATIVE us Gautam Cope MD LAB BLOOD ORDERABLES Final Resul t Performing Organization Address [facility] de Phone Number [facility] [place] [address] * Vitamin B12 (04/25/2024 9:45 AM TECHNICAL SERVICE REPRESENTATIVE) Pathologist [facility] [place] Vitamin B12 390 230 - 1,250 pg/mL Blood 04/25/2024 9:45 AM TECHNICAL SERVICE REPRESENTATIVE 04/25/2024 11:20 AM TECHNICAL SERVICE REPRESENTATIVE Gautam Cope MD LAB BLOOD ORDERABLES Final Resul t Performing Organization Address [facility] de Phone Number [facility] [place] [address] * (ABNORMAL) Comprehensive metabolic panel (04/25/2024 9:45 AM TECHNICAL SERVICE REPRESENTATIVE) Pathologist [facility] [place] Sodium 142 135 - 145 mmol/L Potassium, pl 4.5 3.3 - 4.9 mmol/L [facility] Chloride 106 97 - 110 mmol/L [facility] CO2 29 22 - 32 mmol/L [facility] Anion gap 7 2 - 15 mmol/L [facility] BUN 41(H) 6 - 25 mg/dL [facility] Creatinine 2.25(H) 0.80 - 1.30 mg/dL [facility] Glucose 201(H) 70 - 199 mg/dL [facility] [...] Calcium 9.2 8.5 - 10.3 mg/dL [facility] Bilirubin, total 0.3 0.1 - 1.2 mg/dL [facility] Protein, pl 6.7 6.5 - 8.5 g/dL [facility] Albumin 3.9 3.5 - 5.0 g/dL [facility] Alk phos 128 40 - 130 Units/L [facility] ALT 10 7 - 55 Units/L [facility] AST 12 10 - 50 Units/L [facility] Blood 04/25/2024 9:45 AM TECHNICAL SERVICE REPRESENTATIVE 04/25/2024 9:51 AM TECHNICAL SERVICE REPRESENTATIVE us Gautam Cope MD LAB BLOOD ORDERABLES Final Resul t [facility] [place] [address] * (ABNORMAL) Differential, auto (04/25/2024 9:40 AM TECHNICAL SERVICE REPRESENTATIVE) Neutrophil abs 9.1(H) 1.5 - 6.5 K/cumm Comment:Testing performed by : [facility], [address] [place] [phone] Lymphocyte abs 1.6 0.8 - 3.3 K/cumm [facility] Comment:Testing performed by : [facility], [address] [place] [phone] Monocyte abs 0.9(H) 0.2 - 0.8 K/cumm [facility] Comment:Testing performed by : [facility], [address] [place] [phone] Eosinophil abs 0.2 0.0 - 0.5 K/cumm [facility] Comment:Testing performed by : [facility], [address] [place] [phone] Basophil abs 0.1 0.0 - 0.1 K/cumm [facility] Comment:Testing performed by : [facility], [address] [place] [phone] Neutrophil pct 76.7 % [facility] Comment: Interpretive Data Percent cell count reference ranges are not reported, since discordance with absolute values may lead to misinterpretation of CBC data. Current Interpretive Data was last revised on 2017. Testing performed by: [facility], [address] [place] [phone] Lymphocyte pct 13.2 % [facility] Comment: Interpretive Data Percent cell count reference ranges are not reported, since discordance with absolute values may lead to misinterpretation of CBC data. Current Interpretive Data was last revised on 2017. Testing performed by: [facility], [address] [place] [phone] Monocyte pct 7.1 % [facility] Comment: Interpretive Data Percent cell count reference ranges are not reported, since discordance with absolute values may lead to misinterpretation of CBC data. Current Interpretive Data was last revised on 2017. Testing performed by: [facility], [address] [place] [phone] Eosinophil pct 1.8 % [facility] Comment: Interpretive Data Percent cell count reference ranges are not reported, since discordance with absolute values may lead to misinterpretation of CBC data. Current Interpretive Data was last revised on 2017. Testing performed by: [facility], [address] [place] [phone] Basophil pct 1.2 % [facility] Comment: Interpretive Data Percent cell count reference ranges are not reported, since discordance with absolute values may lead to misinterpretation of CBC data. Current Interpretive Data was last revised on 2017. Testing performed by: [facility], [address] [place] [phone] Blood 04/25/2024 9:40 AM TECHNICAL SERVICE REPRESENTATIVE 04/25/2024 9:45 AM TECHNICAL SERVICE REPRESENTATIVE us Gautam Cope MD LAB BLOOD ORDERABLES Final Resul t [facility] [place] [address] * (ABNORMAL) CBC with auto differential (04/25/2024 9:40 AM TECHNICAL SERVICE REPRESENTATIVE) WBC 11.9(H) 3.8 - 9.9 K/cumm Comment:Testing performed by : [facility], [address] [place] [address] Hgb 12.2(L) 13.0 - 17.5 g/dL [facility] Comment:Testing performed by : [facility], [address] [place] [address] Hct 38.8(L) 38.9 - 50.3 % [facility] Comment:Testing performed by : [facility], [address] [place] [address] Plt 369 150 - 400 K/cumm [facility] Comment:Testing performed by : [facility], [address] [place] [address] MPV 7.7 6.8 - 10.4 fL [facility] Comment:Testing performed by : [facility], [address] [place] [address] RBC 4.38 4.30 - 5.80 M/cumm [facility] Comment:Testing performed by : [facility], [address] [place] [address] MCV 88.6 81.3 - 96.4 fL [facility] Comment:Testing performed by : [facility], [address] [place] [address] MCH 27.8 27.1 - 33.3 pg [facility] Comment:Testing performed by : [facility], [address] [place] [address] MCHC 31.3(L) 32.3 - 35.7 g/dL [facility] Comment:Testing performed by : [facility], [address] [place] [phone] RDW CV 14.7 11.1 - 14.9 % [facility] Comment:Testing performed by : [facility], [address] [place] [phone] NRBC abs 0.00 0.00 - 0.01 K/cumm [facility] Comment:Testing performed by : [facility], [address] [place] [phone] Blood 04/25/2024 9:40 AM TECHNICAL SERVICE REPRESENTATIVE 04/25/2024 9:45 AM TECHNICAL SERVICE REPRESENTATIVE us Gautam Cope MD LAB BLOOD ORDERABLES Final Resul t Performing Organization Address City/State/[facility] Co de Phone Number [facility] [place] [address] * Dexa TBS Axial Skeleton Bone Density 1 or more sites (04/24/2024 11:56 AM TECHNICAL SERVICE REPRESENTATIVE) Anatomical Region Laterality Modality Wrist, Body N/A Radiographic Roberta ging Narrative 04/24/2024 12:52 PM TECHNICAL SERVICE REPRESENTATIVE Patient Name: David Wei Date of : 1940 Date of scan: 04/24/2024 Bone mineral density was performed on a Hologic Discovery Densitometer. Based on machine cross-calibration and [...] by the International Society of Clinical Densitometry. [id number] Daquan George MD IMG DXA PROCEDURES Final Result * (ABNORMAL) Lipid panel (03/08/2023 11:55 AM TECHNICAL SERVICE REPRESENTATIVE) Cholesterol 193 30 - 199 mg/dL [facility] Comment: Interpretive Data Ages < [...] revised on 2017. Triglycerides 250(H) <=149 mg/dL [facility] Comment: Interpretive Data Ages [...] revised on 2017. HDL 36(L) >=40 mg/dL [facility] Comment: Interpretive Data Ages < or [...] on 2017. LDL, calculated 107 <=129 mg/dL [facility] Comment: Interpretive Data Ages [...] revised on 2017. Non-HDL Cholesterol 157 mg/dL [facility] Comment: Interpretive Data Ages [...] last revised on 2017. Chol/HDL ratio 5 [facility] Blood 03/08/2023 11:5 5 AM TECHNICAL SERVICE REPRESENTATIVE 03/08/2023 3:48 PM TECHNICAL SERVICE REPRESENTATIVE us Kraig Ching MD LAB BLOOD ORDERABLES Final Re sult [facility] [place] [address] * (ABNORMAL) Albumin Creatinine Ratio, Urine (01/01/2023 10:40 AM CDT) Albumin Ur 227.3 mg/L [facility] Comment: Interpretive Data No reference range established. Current interpretive data was last revised 2018. Creatinine Ur 66.5 mg/dL [facility] Comment: Interpretive Data No reference range established. Current interpretive data was last revised 2018. Albumin Creatinine Ratio, Ur 342(H) 1 - 29 mg/g [facility] Urine 01/01/2023 10:4 0 AM CDT 01/01/2023 10:45 AM CDT Kraig Ching MD LAB URINE ORDERABLES Final Re sult [facility] Department [place] [address] * DIABETES EYE EXAM (06/29/2018) Diabetic Eye Exam Normal Historical Provider HEALTH MAINTENANCE Final Result from Last 3 Months or Most Recently Relevant to Health Maintenance Insurance [facility] MEDICARE [facility] MEDICARE [employer] MEDICARE AET[employer] MEDICARE Advance Directives For more information, please contact: [phone] * Full Code (Latest Code Status on File) Date Activated Date Inactivated Comments 12/16/2017 2:44 PM 12/16/2017 7:18 PM Care Teams Ese Teacher Relationship Specialty Start Date End Date Kraig Ching MD [address] [facility] [address] [place] [address] PCP - General 07/10/16 Gautam Cope MD [address] [facility] [address] [place] [address] Medical Oncologist/Technical Illustrations Map Inker Medical Oncology 08/18/18 Tramaine Roe MD [address] [facility] [address] [place] [address] Referring Physician Urology 08/18/18 Sukhwinder Uribe MD [address] [facility] [address] [place] [address] Consulting Physician Urology 08/18/18 Shay Guillermo MD [address] [facility] [address] [place] [address] Referring Physician Urology 08/18/18 Marsha Landis, RN Registered Nurse 11/17/18
--- OUTSIDE RECORDS SUMMARY | 2024-07-20 20:06 | XMS_ITS | Encounter Summary ---
Author Organization [facility] Address [address] [place] [address] Phone Care Team Providers Care Senior Corporate Strategy Manager Name Role Phone Kraig Ching MD Primary Care Provider [phone] Gautam Cope MD Unavailable Tramaine Roe MD Unavailable [phone] Sukhwinder Uribe MD Unavailable [phone] Shay Guillermo MD Unavailable [phone] Marsha Landis RN Unavailable Unavailab Ilene Kaur RN Unavailable [phone] Clarissa Luna RN Unavailable [phone] Encounter Details Date Type Department Care Team (Late st Contact Info) Description 12/06/2018 Telephone [facility] Oncology [address] [facility] Advanced Medicine 7th [place] [address] Salena Bryan NP [address] [place] [address] Social History Tobacco Use Types Packs/Day Years [...] on file 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 Gender Identity Not on file Sexual Orientation Not on file documented as of this encounter Plan of Treatment Not on file documented as of this encounter Visit Diagnoses Not on filedocumented in this encounter Care Teams Senior Corporate Strategy Manager Relationship Specialty Start Date End Date Kraig Ching MD [address] [place] [address] PCP - General 07/10/16 Gautam Cope MD [address] [place] [address] Medical Oncologist/Veneer Cutter Medical Oncology 08/18/18 Tramaine Roe MD [address] [place] [address] Referring Physician Urology 08/18/18 Sukhwinder Uribe MD [address] [place] [address] Consulting Physician Urology 08/18/18 Shay Guillermo MD [address] [place] [address] Referring Physician Urology 08/18/18 Marsha Landis, RN Registered Nurse 11/17/18 Ilene Fragoso RN [address] [place] [address] Associate Drafter 12/23/18 11/01/19 Clarissa Luna RN [address] [place] [address] Associate Drafter 04/04/24 04/26/24 documented as of this encounter
[2024-07-20 20:18] VITALS: BP 127/57; PULSE 92; RESP 18; TEMP 36.4; O2SAT 96
--- OUTSIDE RECORDS SUMMARY | 2024-07-20 21:38 | XMS_ITS | Encounter Summary ---
Author Organization [facility] Address [address] [place] [address] Care Team Providers Care Space Buyer Name Role Phone Kraig Ching MD Primary Care Provider [phone] Gautam Cope MD Unavailable Tramaine Roe MD Unavailable [phone] Sukhwinder Uribe MD Unavailable [phone] Shay Guillermo MD Unavailable [phone] Marsha Landis RN Unavailable Unavailab le Encounter Details Date Type Department Care Team (Latest Contact Info) Description 07/19/2024 7:45 PM CDT - 07/19/2024 11:59 PM CDT Hospital Encounter [facility] [address] [place] [address] Urinary frequency Discharge Disposition: Discharge to home [...] alcohol) Occasional glass of wine. [facility] Utilities Answer Date Recorded In the past 12 months has [employer], gas, oil, or water company threatened to [...] often do you attend chur ch or anabaptist services? Never 04/04/2024 Do you belong to any clubs o r organizations such as zoroastrian groups, unions, fraternal or athletic groups, or [...] any time in the past 12 m [facility], were you homeless or living in a long-term (including now)? No 04/04/2024 Personal Safety Answer Date Recorded Have you ever been in or are you currently in a harmful physical or emotional relationship or is someone making you feel afraid or unsafe? 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 - Ensure [facility] has appropriate referral and orders to establish care with patient. - Follow up with patient to ensure initial visit was completed by [facility] and that a [facility] plan has been started. [facility] General Goal - Patient schedules and keeps appointments with all recommended providers O Care Management Improving( 1:22 PM MERCHANDISING PROFESSOR) No Clarissa Luna RN Note: Problem: Potential [...] frequency documented in this encounter Care Teams Space Buyer Relationship Specialty Start Date End Date Kraig Ching MD [address] [place], [place] [id number] PCP - General 07/10/16 Gautam Cope MD [address] [facility] [address] [place] [address] Medical Oncologist/Operations And Intelligence Assistant Medical Oncology 08/18/18 Tramaine Roe MD [address] [facility] [address] [place] [address] Referring Physician Urology 08/18/18 Sukhwinder Uribe MD [address] [facility] [address] [place] [address] Consulting Physician Urology 08/18/18 Shay Guillermo MD [address] [facility] [address] [place] [address] Referring Physician Urology 08/18/18 Marsha Landis, RN Registered Nurse 11/17/18 documented as of this encounter
--- OUTSIDE RECORDS SUMMARY | 2024-07-20 21:38 | XMS_ITS | Clinical Summary ---
Author Organization [facility] Address [address] [place] [address] Care Team Providers Care Travel Guide Name Role Phone Unavailable Primary Care Provider [...]
--- OUTSIDE RECORDS SUMMARY | 2024-07-20 21:38 | XMS_ITS | Referral Summary ---
Author Organization [facility] Address [address] [place] [address] Care Team Providers Care Roll Up Operator Name Role Phone Kraig Ching MD Primary Care Provider Gautam Cope MD Unavailable Tramaine Roe MD Unavailable [phone] Sukhwinder Uribe MD Unavailable Shay Guillermo MD Unavailable [phone] Marsha Landis RN Unavailable Unavailab le Encounters Date Type Department Care Team Description 07/19/2024 7:45 PM CDT - 07/19/2024 11:59 PM CDT Hospital Encounter [facility] [address] [place], [place] [id number] Urinary frequency Discharge Disposition: Discharge to home or self care 07/19/2024 2:00 PM CDT Office Visit [facility] Medical Group [facility] Care at [address] [phone] Clau Childers PA Urinary frequency (Primary Dx); Leukocytosis, unspecified type 07/18/2024 Patient Self-Triage [facility] HealthCare/ Physicians [address] [place] [address] Mychart, Generic Provider 07/18/2024 1:00 PM CDT Office Visit [facility] Oncology [address] Floor 5 [place] [address] Gautam Cope MD Prostate cancer (HCC) (Primary Dx) 07/18/2024 12:00 PM CDT Lab [facility] - Lab Collection [address] Floor 5 [place] [address] Prostate cancer (HCC) 07/18/2024 1:45 PM CDT Infusion [facility] - Infusion [address] Floor 6 [place] [address] Prostate cancer (HCC) (Primary Dx) 07/01/2024 Orders Only [facility] Health Information Management [address] [place] [address] Scanning, Provider 06/14/2024 6:15 PM STUDENT UNION CONSULTANT Lab [facility] ([facility]) [address] [place] [phone] GABRIELA (acute kidney injury) 06/14/2024 3:00 PM STUDENT UNION CONSULTANT Office Visit [facility] Nephrology [address] [place] [address] 5th [place] [address] [place] [address] Lin Guerrero MD Chronic kidney disease, stage 3b (HCC) (Primary Dx); GABRIELA (acute kidney injury); Hypertension, essential; Secondary hyperparathyroidism of renal origin 06/08/2024 12:00 PM STUDENT UNION CONSULTANT Lab [facility] ([facility]) [address] [place] [phone] 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 chronic kidney disease (HCC); Hypertension, essential; Secondary hyperparathyroidism of renal origin; Stage 3 chronic kidney disease, unspecified whether stage 3a or 3b CKD (HCC); Primary hypertension; Vitamin D deficiency; Type 2 diabetes mellitus with stage 3a chronic kidney disease, with long-term current use of insulin (HCC); Fatigue, unspecified type; GABRIELA (acute kidney injury) 06/08/2024 9:45 AM STUDENT UNION CONSULTANT Office Visit [facility] [address] [facility] [address] [place] [phone] Kraig Ching MD Hypertension, essential (Primary Dx); Prostate cancer (HCC); Type 2 diabetes mellitus with stage 3b chronic kidney disease, with long-term current use of insulin (HCC); Stage 3b chronic kidney disease (HCC); Hyperlipidemia, unspecified hyperlipidemia type 05/24/2024 Orders Only [facility] Nephrology [address] [place] [address] [place] [address] [place] [address] Lin Guerrero MD 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 [...] type; GABRIELA (acute kidney injury) 05/02/[address] [address] Kraig Ching MD Medical Question/Miscellaneous 04/28/[address] [place] [address] Stef Roman NP 04/28/2024 Orders Only [address] [place] [address] Stef Roman NP 04/25/2024 11:45 AM STUDENT UNION CONSULTANT Infusion [facility] Infusion [address] [address] Prostate cancer (HCC) (Primary Dx) 04/25/2024 9:45 AM STUDENT UNION CONSULTANT Lab [facility] - Lab Collection [address] [place] [address] Prostate cancer (HCC) 04/25/2024 10:45 AM STUDENT UNION CONSULTANT Office Visit [facility] Oncology [address] Floor [address] [place] [phone] Gautam Cope MD Prostate cancer (HCC) 04/24/[address] [place] [address] Daquan George MD 04/24/2024 11:50 AM STUDENT UNION CONSULTANT Clinical Support [address] [place] [phone] Age-related osteoporosis without current pathological fracture (Primary Dx) 04/24/2024 12:20 PM STUDENT UNION CONSULTANT Office Visit [facility] [address] [facility] 5th [place] [address] [place] [phone] Daquan George MD Age-related osteoporosis without current [...] 05/30/2024 Assessment & Plan (06/08/2024 4:46 AM STUDENT UNION CONSULTANT): Continue current regimen.Limit nephrotoxins.Reviewed creatinine. Avoid NSAIDS. [...] 03/08/2023 Assessment & Plan (06/08/2024 4:46 AM STUDENT UNION CONSULTANT): Hypertension is controlled. Continue current regimen. Assessment & Plan (10/05/2023 12:54 PM CDT): Hypertension is controlled. Decrease carvedilol to 12.5 mg. Assessment & Plan (03/08/2023 7:11 AM STUDENT UNION CONSULTANT): Hypertension is controlled. Continue current regimen. 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 Avoid NSAIDS. Assessment & Plan (10/05/2023 5:50 AM CDT): Continue current regimen.Limit nephrotoxins.Reviewed creatinine. Avoid NSAIDS. Assessment & Plan (03/08/2023 7:12 AM STUDENT UNION CONSULTANT): Continue current regimen.Limit nephrotoxins.Reviewed creatinine. Avoid NSAIDS. CKD (chronic kidney disease) 03/08/2022 Assessment & Plan (06/08/2024 4:45 AM STUDENT UNION CONSULTANT): Limit nephrotoxins. Monitor creatinine. Avoid NSAIDS.Follow with Nephrology. 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 chronic kidney disease 2021 Gastroesophageal reflux disease 04/08/2021 Assessment & Plan (03/08/2023 11:17 AM STUDENT UNION CONSULTANT): Reviewed dietary modifications. Continue PPI. Assessment & Plan (08/18/2022 6:36 AM CDT): Reviewed dietary modifications. Continue PPI. Assessment & Plan (02/12/2022 6:03 AM CDT): Reviewed dietary modifications. Continue PPI. Assessment & Plan (04/08/2021 5:55 AM STUDENT UNION CONSULTANT): Reviewed dietary modifications. Continue PPI. 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 Continue home PT exercises. Advised using a walker. Assessment & Plan (08/18/2022 11:47 AM CDT): Continue oxycodone. Continue home PT exercises. Advised using a walker. Assessment & Plan (02/12/2022 11:41 AM CDT): Continue oxycodone. Continue home PT exercises. A prescription for a walker. Assessment & Plan (04/08/2021 5:55 AM STUDENT UNION CONSULTANT): Continue oxycodone. Continue home PT exercises. Continue walker. Assessment & Plan (12/26/2020 10:48 AM CDT): Continue oxycodone. Script for walker. Assessment & Plan (09/26/2020 11:29 AM CDT): Continue ROM exercises and follow with Pain Management. Refill oxycodone as needed. Prostate cancer 09/06/2018 Assessment & Plan (06/08/2024 4:46 AM STUDENT UNION CONSULTANT): Follow with Oncology. Continue Zytiga. Assessment & [...] 01/25/2018 Assessment & Plan (03/07/2018 6:54 AM STUDENT UNION CONSULTANT): Hypertension is controlled. Continue current regimen. CHF [...] creatinine. Assessment & Plan (04/08/2021 5:54 AM STUDENT UNION CONSULTANT): Hypertension is controlled. Continue current regimen.Limit nephrotoxins. [...] NSAIDS. Assessment & Plan (03/07/2018 6:55 AM STUDENT UNION CONSULTANT): Hypertension is controlled. Continue current regimen. Limit nephrotoxins. Monitor creatinine. Avoid NSAIDS. Assessment & Plan (11/25/2017 7:09 AM CDT): Limit nephrotoxins. Monitor creatinine. Avoid NSAIDS. Duodenal ulcer 11/25/2017 Assessment & Plan (11/25/2017 10:16 AM CDT): Reviewed GI note . Continue pantoprazole. Avoid NSAIDS. Refer for EGD. PAF (paroxysmal atrial fibrillation) 10/22/2017 Assessment & Plan (03/07/2018 6:54 AM STUDENT UNION CONSULTANT): Continue rate control. Continue anticoagualtion. Anticipate starting [...] NSAIDS. Assessment & Plan (03/07/2018 6:55 AM STUDENT UNION CONSULTANT): Limit nephrotoxins. Monitor creatinine. Avoid NSAIDS. Assessment [...] diet. Assessment & Plan (04/08/2021 10:17 AM STUDENT UNION CONSULTANT): Reviewed HgBA1C elevated at 10.6 on 04/01/21. [...] therapy. Assessment & Plan (03/07/2018 6:57 AM STUDENT UNION CONSULTANT): Continue pravastatin. He had myalgias on other [...] diet. Assessment & Plan (03/02/2017 6:53 AM STUDENT UNION CONSULTANT): Hypertension is controlled. Continue current regimen. Reviewed low sodium diet. Assessment & Plan (01/15/2017 6:44 AM CDT): Reviewed proper diet. Continue statin therapy. Hyperlipidemia 01/12/2012 Assessment & Plan (06/08/2024 4:46 AM STUDENT UNION CONSULTANT): Continue pravastatin. Order lipid panel at next [...] 05/28/2023 Assessment & Plan (03/08/2023 11:40 AM STUDENT UNION CONSULTANT): Agree with cataract surgery. He has 1st [...] 08/30/2017 Assessment & Plan (03/02/2017 10:48 AM STUDENT UNION CONSULTANT): Mood is improved. Monitor off medication. Impotence [...] 200. Assessment & Plan (03/07/2018 6:56 AM STUDENT UNION CONSULTANT): Continue current regimen. Advised annual eye exam.Limit [...] 01/17/2019 Influenza, Unspecified 01/17/2019(Deferred: Daisy ent Refused) [employer] SARS-CoV-2 Vaccination 06/14/2020, 06/14/2020 Pfizer SARS-CoV-2 [...] pur e alcohol) Occasional glass of wine. [facility] Utilities Answer Date Recorded In the past [...] often do you attend chur ch or cheondoism services? Never 04/04/2024 Do you belong to any clubs o r organizations such as yazidism groups, unions, fraternal or athletic groups, or [...] time in the past 12 m [facility], were you homeless or living in a fci (including now)? No 04/04/2024 Personal Safety Answer Date Recorded Have you ever been in or are you currently in a harmful physical or emotional relationship or is someone making you feel afraid or unsafe? Denies 06/09/2023 Sex and Gender Information Value Date Recorded Sex Assigned at Not on file Legal Sex Male 4:46 PM STUDENT UNION CONSULTANT Gender Identity Not on file Sexual [...] cm (5' 9 ) 06/14/2024 2:58 PM STUDENT UNION CONSULTANT Body Mass Index 29.98 06/14/2024 2:58 PM STUDENT UNION CONSULTANT Plan of Treatment Not on file Goals Goal Patient Goal Type Associated Problems Recent Progress Patient-Stated? Author ZAK General Goal - Patient establishes care with [facility] ACO Care Management On track(2023 1:22 PM STUDENT UNION CONSULTANT) No Clarissa Luna RN Note: Problem: Lack of [facility] communication Interventions: - Provide coordination between [facility] company and patient. - Ensure [facility] has appropriate referral and orders to establish care with patient. - Follow up with patient to ensure initial visit was completed by [facility] and that a [facility] plan has been started. ZAK General Goal - Patient schedules and keeps appointments with all recommended providers ACO Care Management Improving( 1:22 PM STUDENT UNION CONSULTANT) No Clarissa Luna RN Note: Problem: Potential [...] medication regimen. Medical Devices Implanted Type Area Communications Superintendent Device Identifier Shelf Expiration Date Model / Serial / Lot [employer] Lens Iol Cna0t0.195 [facility] Autonom Cna0t0.195 - [id number] - [id number] Implanted:Qty: 1 on 06/09/2023 by Higinio Connolly MD at [facility] Lens Right: Eye [employer] [id number] 10/27/2025 CNA0T0.19 5 / [id number] / [employer] Lens Iol Cna0t0.200 [facility] Autonom Cna0t0.200 - [id number] - [id number] Implanted:Qty: 1 on 05/19/2023 by Higinio Connolly MD at [facility] Left: Eye [employer] [id number] 10/06/2025 CNA0T0.20 0 / [id number] / Procedures Procedure Name Priority Date/Time [...] AM CDT EGFR Routine 06/14/2024 3:48 PM STUDENT UNION CONSULTANT GABRIELA (acute kidney injury) RENAL FUNCTION PANEL Routine 06/14/2024 3:48 PM STUDENT UNION CONSULTANT GABRIELA (acute kidney injury) URINALYSIS AND REFLEX TO MICROSCOPIC Routine 06/08/2024 10:47 AM STUDENT UNION CONSULTANT 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 chronic kidney disease (HCC) Hypertension, essential Secondary hyperparathyroidism of renal origin Stage 3 chronic kidney disease, unspecified whether stage 3a or 3b CKD (HCC) Primary hypertension Vitamin D deficiency Type 2 diabetes mellitus with stage 3a chronic kidney disease, with long-term current use of insulin (HCC) Fatigue, unspecified type GABRIELA (acute kidney injury) EGFR Routine 06/08/2024 10:44 AM STUDENT UNION CONSULTANT 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 chronic kidney disease (HCC) Hypertension, essential Secondary hyperparathyroidism of renal origin Stage 3 chronic kidney disease, unspecified whether stage 3a or 3b CKD (HCC) Primary hypertension Vitamin D deficiency Type 2 diabetes mellitus with stage 3a chronic kidney disease, with long-term current use of insulin (HCC) Fatigue, unspecified type GABRIELA (acute kidney injury) DIFFERENTIAL AUTO Routine 06/08/2024 10:44 AM STUDENT UNION CONSULTANT 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 chronic kidney disease [...] RENAL FUNCTION PANEL Routine 06/08/2024 10:44 AM STUDENT UNION CONSULTANT 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 chronic kidney disease [...] D 25 HYDROXY Routine 06/08/2024 10:44 AM STUDENT UNION CONSULTANT 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 chronic kidney disease [...] WITH AUTO DIFFERENTIAL Routine 06/08/2024 10:44 AM STUDENT UNION CONSULTANT 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 chronic kidney disease (HCC) Hypertension, essential Secondary hyperparathyroidism of renal origin Stage 3 chronic kidney disease, unspecified whether stage 3a or 3b CKD (HCC) Primary hypertension Vitamin D deficiency Type 2 diabetes mellitus with stage 3a chronic kidney disease, with long-term current use of insulin (HCC) Fatigue, unspecified type GABRIELA (acute kidney injury) PTH Routine 06/08/2024 10:44 AM STUDENT UNION CONSULTANT 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 chronic kidney disease [...] RATIO, URINE, RANDOM Routine 06/08/2024 10:44 AM STUDENT UNION CONSULTANT 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 chronic kidney disease (HCC) Hypertension, essential Secondary hyperparathyroidism of renal origin Stage 3 chronic kidney disease, unspecified whether stage 3a or 3b CKD (HCC) Primary hypertension Vitamin D deficiency Type 2 diabetes mellitus with stage 3a chronic kidney disease, with long-term current use of insulin (HCC) Fatigue, unspecified type GABRIELA (acute kidney injury) EGFR STAT 04/25/2024 9:45 AM STUDENT UNION CONSULTANT Prostate cancer (HCC) VITAMIN D 25 HYDROXY Routine 04/25/2024 9:45 AM STUDENT UNION CONSULTANT Prostate cancer (HCC) TOTAL TESTOSTERONE Routine 04/25/2024 9:45 AM STUDENT UNION CONSULTANT Prostate cancer (HCC) HEMOGLOBIN A1C Routine 04/25/2024 9:45 AM STUDENT UNION CONSULTANT Prostate cancer (HCC) VITAMIN B12 Routine 04/25/2024 9:45 AM STUDENT UNION CONSULTANT Prostate cancer (HCC) LACTATE DEHYDROGENASE Routine 04/25/2024 9:45 AM STUDENT UNION CONSULTANT Prostate cancer (HCC) COMPREHENSIVE METABOLIC PANEL STAT 04/25/2024 9:45 AM STUDENT UNION CONSULTANT Prostate cancer (HCC) PSA DIAGNOSTIC Routine 04/25/2024 9:45 AM STUDENT UNION CONSULTANT Prostate cancer (HCC) DIFFERENTIAL AUTO Routine 04/25/2024 9:40 AM STUDENT UNION CONSULTANT Prostate cancer (HCC) CBC WITH AUTO DIFFERENTIAL Routine 04/25/2024 9:40 AM STUDENT UNION CONSULTANT Prostate cancer (HCC) DEXA TBS AXIAL SKELETON BONE DENSITY 1 OR MORE SITES Schedule Routine, Read Routine (OP Routine) 04/24/2024 11:56 AM STUDENT UNION CONSULTANT Age-related osteoporosis without current pathological fracture LIPID PANEL Routine 03/08/2023 11:55 AM STUDENT UNION CONSULTANT Hyperlipidemia, unspecified hyperlipidemia type ALBUMIN CREATININE RATIO, [...] Large Ketones, ur, POC Negative Negative Specific [place], POC 1.015 1.003 - 1.030 Blood, ur, POC Hemolyzed, trace(A) Negative pH, ur, POC 6.0 5.0 - 8.0 Protein, ur, POC 30.(A) Negative Urobilinogen, urine, POC 0.2 0.2 - 1.0 mg/dL Nitrite, ur, POC Negative Negative Leukocytes, ur, POC Negative Negative Lot Number [id number] Urine 07/19/2024 2:16 PM CDT Clau ESQUIVEL [...] [facility] Department [place] [address] * (ABNORMAL) Differential, auto (07/18/2024 12:07 PM CDT) Neutrophil abs 17.55(H) 1.50 - 6.50 K/cumm Comment:Testing performed by : [facility], [address] [place] [phone] Lymphocyte abs 0.96 0.80 - 3.30 K/cumm [facility] PER[facility]O Comment:Testing performed by : [facility], [address] [place] [phone] Monocyte abs 1.48(H) 0.20 - 0.80 K/cumm [facility]LINE PER[facility]O Comment:Testing performed by : [facility], [address] [place] [phone] Eosinophil abs 0.06 0.00 - 0.50 K/cumm [facility] PER[facility] Comment:Testing performed by : [facility], [address] [place] [phone] Basophil abs 0.03 0.00 - 0.10 K/cumm MERLINE BJ Comment:Testing performed by : [facility], [address] [place] [phone] Neutrophil pct 87.4 % [facility]ER[facility] PERDOMO Comment: Interpretive Data Percent cell count reference ranges are not reported, since discordance with absolute values may lead to misinterpretation of CBC data. Current Interpretive Data was last revised on 2017. Testing performed by: [facility], [address] [place] [phone] Lymphocyte pct 4.8 % [facility] Comment: Interpretive Data Percent cell count reference ranges are not reported, since discordance with absolute values may lead to misinterpretation of CBC data. Current Interpretive Data was last revised on 2017. Testing performed by: [facility], [address] [place] [phone] Monocyte pct 7.4 % [facility] PER[facility] Comment: Interpretive Data Percent cell count reference ranges are not reported, since discordance with absolute values may lead to misinterpretation of CBC data. Current Interpretive Data was last revised on 2017. Testing performed by: [facility], [address] [place], [place] [id number] Eosinophil pct 0.3 % [facility] PER[facility]O Comment: Interpretive Data Percent cell count reference ranges are not reported, since discordance with absolute values may lead to misinterpretation of CBC data. Current Interpretive Data was last revised on 2017. Testing performed by: [facility], [address] [place] [phone] Basophil pct 0.2 % [facility] Comment: Interpretive Data Percent cell count reference ranges are not reported, since discordance with absolute values may lead to misinterpretation of CBC data. Current Interpretive Data was last revised on 2017. Testing performed by: [facility], [address] [place] [phone] Blood 07/18/2024 12:0 7 PM CDT 07/18/2024 12:22 PM CDT us Gautam Cope MD LAB BLOOD ORDERABLES Final Resul t [facility] Department [place] [address] * (ABNORMAL) CBC with auto differential (07/18/2024 12:07 PM CDT) WBC 20.09(H) 3.80 - 9.90 K/cumm Comment:Testing performed by : [facility], [address] [place], [place] [phone] Hgb 12.1(L) 13.0 - 17.5 g/dL CERNER BJ Comment:Testing performed by : [facility], [address] [place], [place] [phone] Hct 38.2(L) 38.9 - 50.3 % CERNER BJ Comment:Testing performed by : [facility], [address] [place] [address] Plt 451(H) 150 - 400 K/cumm [facility]ER BJ Comment:Testing performed by : [facility], [address] [place] [address] MPV 7.7 6.8 - 10.4 fL [facility] BJ Comment:Testing performed by : [facility], [address] [place] [address] RBC 4.46 4.30 - 5.80 M/cumm [facility] BJ Comment:Testing performed by : [facility], [address] [place] [address] MCV 85.5 81.3 - 96.4 fL [facility] BJ Comment:Testing performed by : [facility], [address] [place] [address] MCH 27.1 27.1 - 33.3 pg [facility] BJ Comment:Testing performed by : [facility], [address] [place] [address] MCHC 31.7(L) 32.3 - 35.7 g/dL [facility]ERN[facility] BJ Comment:Testing performed by : [facility], [address] [place] [address] RDW CV 14.9 11.1 - 14.9 % CERNER BJ Comment:Testing performed by : [facility], [address] [place] [address] NRBC abs 0.00 0.00 - 0.01 K/cumm [facility] Comment:Testing performed by : [facility], [address] [place] [phone] Blood 07/18/2024 12:0 7 PM CDT 07/18/2024 12:22 PM CDT us Gautam Cope MD LAB BLOOD ORDERABLES Final Resul t Performing Organization Address [facility] de Phone Number [facility] Department [place] [address] * PSA diagnostic (07/18/2024 12:07 PM CDT) [...] Resul t Performing Organization Address [facility] de Phone Number [facility] Department [place] [address] * Lactate dehydrogenase (LD) (07/18/2024 12:07 PM CDT) Lactate dehydrogenase (LDH) 216 100 - 250 Units/L Blood 07/18/2024 12:0 7 PM CDT 07/18/2024 12:25 PM CDT us Gautam Cope MD LAB BLOOD ORDERABLES Final Resul t Performing Organization Address [facility] de Phone Number [facility] Department [place] [address] * (ABNORMAL) Hemoglobin A1c (07/18/2024 12:07 PM CDT) Pathologist [facility] Hgb A1C 8.0(H) 4.0 - 5.6 % Estimated Average Glucose 183 mg/dL [facility] Comment: [...] Resul t Performing Organization Address [facility] de Phone Number [facility] Department [place] [address] * (ABNORMAL) Comprehensive metabolic panel (07/18/2024 12:07 PM CDT) [facility] Sodium 142 135 - 145 mmol/L Potassium, pl 4.6 3.3 - 4.9 mmol/L [facility] Chloride 106 97 - 110 mmol/L [facility] CO2 24 22 - 32 mmol/L [facility] Anion gap 12 2 - 15 mmol/L [facility] BUN 52(H) 6 - 25 mg/dL [facility] Creatinine 2.66(H) 0.80 - 1.30 mg/dL [facility] Glucose 164 70 - 199 mg/dL [facility] Comment: Interpretive Data Fasting [...] 2022. Calcium 9.0 8.5 - 10.3 mg/dL [facility] Bilirubin, total 0.5 0.1 - 1.2 mg/dL [facility] Protein, pl 6.7 6.5 - 8.5 g/dL [facility] Albumin 4.0 3.5 - 5.0 g/dL [facility] Alk phos 126 40 - 130 Units/L [facility] ALT 10 7 - 55 Units/L [facility] AST 13 10 - 50 Units/L [facility] [facility] Blood 07/18/2024 12:0 7 PM CDT 07/18/2024 12:25 PM CDT us Gautam Cope MD LAB BLOOD ORDERABLES Final Resul t [facility] Department [place] [address] * SCAN - RADIOLOGY/IMAGING (07/01/2024 9:44 AM CDT) Anatomical Region Laterality Modality Other us Provider Scanning Final Result * (ABNORMAL) eGFR (06/14/2024 3:48 PM STUDENT UNION CONSULTANT) eGFR 26(L) >=60 mL/min/1. 73 m2 Comment: [...] last reviewed 2021. Blood 06/14/2024 3:48 PM STUDENT UNION CONSULTANT 06/14/2024 4:07 PM STUDENT UNION CONSULTANT us Lin Guerrero MD LAB BLOOD ORDERABLES Final Resul t [facility] Department [place] [address] * (ABNORMAL) Renal function panel (06/14/2024 3:48 PM STUDENT UNION CONSULTANT) Sodium 143 135 - 145 mmol/L Potassium, pl 5.0(H) 3.3 - 4.9 mmol/L [facility] Chloride 105 97 - 110 mmol/L [facility] CO2 28 22 - 32 mmol/L [facility] Anion gap 10 2 - 15 mmol/L [facility] BUN 48(H) 6 - 25 mg/dL [facility] Creatinine 2.42(H) 0.80 - 1.30 mg/dL [facility] Glucose 152 70 - 199 mg/dL [facility] Comment: Interpretive Data Fasting [...] 2022. Calcium 8.7 8.5 - 10.3 mg/dL [facility] Phosphorus, pl 3.1 2.3 - 4.5 mg/dL [facility] Albumin 3.9 3.5 - 5.0 g/dL [facility] Blood 06/14/2024 3:48 PM STUDENT UNION CONSULTANT 06/14/2024 4:03 PM STUDENT UNION CONSULTANT Lin Guerrero MD LAB BLOOD ORDERABLES Final Resul t Performing Organization Address [facility] de Phone Number [facility] Department [place] [address] * Urinalysis reflex to microscopic (06/08/2024 10:47 AM STUDENT UNION CONSULTANT) Color, ur Straw Yellow Clarity, ur Clear Clear [facility] Specific gravity, ur 1.012 1.003 - 1.030 [facility] pH, urine 6.0 [facility] Comment: Interpretive Data U rine pH is affected by diet, medications, systemic acid-base disturbances, and renal tubular function. pH may affect urinary stone formation. For example, urine pH below 6.0 may help reduce the tendency for calcium phosphate stones and pH greater than 6.0 may reduce the tendency for uric acid stone formation. Source: [facility] Current Interpretive Data was last revised on 2017 Protein, ur ql Trace Negative [facility] Glucose, ur ql Negative Negative [facility] Ketones, ur Negative Negative [facility] Bilirubin, ur Negative Negative [facility] Blood, ur Negative Negative [facility] Urobilinogen, ur <2.0 <2.0 mg/dL [facility] Nitrite, ur Negative Negative [facility] Leukocyte esterase, ur Negative Negative [facility] UA reflex comment Reflex conditions for microscopic UA not met. [facility] Urine 06/08/2024 10:4 7 AM STUDENT UNION CONSULTANT 06/08/2024 11:41 AM STUDENT UNION CONSULTANT us Lin Guerrero MD LAB URINE ORDERABLES Final Resul t Performing Organization Address [facility] Co de Phone Number [facility] Department [place] [address] * (ABNORMAL) eGFR (06/08/2024 10:44 AM STUDENT UNION CONSULTANT) eGFR 22(L) >=60 mL/min/1. 73 m2 Comment: [...] reviewed 2021. Blood 06/08/2024 10:4 4 AM STUDENT UNION CONSULTANT 06/08/2024 11:23 AM STUDENT UNION CONSULTANT us Lin Guerrero MD LAB BLOOD ORDERABLES Final Resul t [facility] Department of Laboratories [place], [place] [id number] * (ABNORMAL) Differential, auto (06/08/2024 10:44 AM STUDENT UNION CONSULTANT) Neutrophil abs 7.8(H) 1.5 - 6.5 K/cumm Imm gran abs 0.1 0.0 - 0.1 K/cumm [facility] Lymphocyte abs 1.9 0.8 - 3.3 K/cumm [facility] Monocyte abs 1.0(H) 0.2 - 0.8 K/cumm [facility] Eosinophil abs 0.1 0.0 - 0.5 K/cumm [facility] Basophil abs 0.0 0.0 - 0.1 K/cumm [facility] Neutrophil pct 71.1 % [facility] Comment: Interpretive Data Percent cell count reference ranges are not reported, since discordance with absolute values may lead to misinterpretation of CBC data. Current Interpretive Data was last revised on 2017. Imm gran pct 0.8 % [facility] Comment: Interpretive Data Percent cell count reference ranges are not reported, since discordance with absolute values may lead to misinterpretation of CBC data. Current Interpretive Data was last revised on 2017. Lymphocyte pct 17.1 % [facility] Comment: Interpretive Data Percent cell count reference ranges are not reported, since discordance with absolute values may lead to misinterpretation of CBC data. Current Interpretive Data was last revised on 2017. Monocyte pct 9.3 % [facility] Comment: Interpretive Data Percent cell count reference ranges are not reported, since discordance with absolute values may lead to misinterpretation of CBC data. Current Interpretive Data was last revised on 2017. Eosinophil pct 1.3 % [facility] Comment: Interpretive Data Percent cell count reference ranges are not reported, since discordance with absolute values may lead to misinterpretation of CBC data. Current Interpretive Data was last revised on 2017. Basophil pct 0.4 % [facility] Comment: Interpretive Data Percent cell count reference ranges are not reported, since discordance with absolute values may lead to misinterpretation of CBC data. Current Interpretive Data was last revised on 2017. Blood 06/08/2024 10:4 4 AM STUDENT UNION CONSULTANT 06/08/2024 11:23 AM STUDENT UNION CONSULTANT us Lin Guerrero MD LAB BLOOD ORDERABLES Final Resul t [facility] Department [place] [address] * (ABNORMAL) CBC with auto differential (06/08/2024 10:44 AM STUDENT UNION CONSULTANT) WBC 11.0(H) 3.8 - 9.9 K/cumm Hgb 12.0(L) 13.0 - 17.5 g/dL [facility] Hct 36.9(L) 38.9 - 50.3 % [facility] Plt 357 150 - 400 K/cumm [facility] MPV 9.8 9.1 - 12.3 fL [facility] RBC 4.27(L) 4.30 - 5.80 M/cumm [facility] MCV 86.4 81.3 - 96.4 fL [facility] MCH 28.1 27.1 - 33.3 pg [facility] MCHC 32.5 32.3 - 35.7 g/dL [facility] RDW CV 14.1 11.1 - 14.9 % [facility] RDW SD 44.2 35.7 - 48.1 fL [facility] NRBC abs 0.00 0.00 - 0.01 K/cumm [facility] Blood 06/08/2024 10:4 4 AM STUDENT UNION CONSULTANT 06/08/2024 11:23 AM STUDENT UNION CONSULTANT Lin Guerrero MD LAB BLOOD ORDERABLES Final Resul t Performing Organization Address [facility] de Phone Number [facility] Department [place] [address] * (ABNORMAL) Protein / creatinine ratio, urine, random (06/08/2024 10:44 AM STUDENT UNION CONSULTANT) Pathologist [facility] Protein, ur, quant 21.3 mg/dL Comment: Interpretive Data No reference range established. Current interpretive data was last revised 2018. Creatinine Ur 52.2 mg/dL [facility] Comment: Interpretive Data No reference range established. Current interpretive data was last revised 2018. Protein/creatinin e ratio 408.0(H) 0.0 - 180.0 mg/g CR [facility] Urine 06/08/2024 10:4 4 AM STUDENT UNION CONSULTANT 06/08/2024 11:23 AM STUDENT UNION CONSULTANT Lin Guerrero MD LAB URINE ORDERABLES Final Resul t Performing Organization Address [facility] de Phone Number [facility] [place] [address] * Vitamin D 25 hydroxy (06/08/2024 10:44 AM STUDENT UNION CONSULTANT) Vitamin D 25-OH 42 30 - 80 ng/mL Blood 06/08/2024 10:4 4 AM STUDENT UNION CONSULTANT 06/08/2024 11:23 AM STUDENT UNION CONSULTANT Lin Guerrero MD LAB BLOOD ORDERABLES Final Resul t Performing Organization Address City/[facility] Co de Phone Number [facility] [place] [address] * (ABNORMAL) PTH (06/08/2024 10:44 AM STUDENT UNION CONSULTANT) Pathologist [facility] PTH 78(H) 15 - 65 pg/mL Blood 06/08/2024 10:4 4 AM STUDENT UNION CONSULTANT 06/08/2024 11:23 AM STUDENT UNION CONSULTANT Lin Guerrero MD LAB BLOOD ORDERABLES Final Resul t Performing Organization Address [facility] Phone Number [facility] [place] [address] * (ABNORMAL) Renal function panel (06/08/2024 10:44 AM STUDENT UNION CONSULTANT) [facility] Sodium 142 135 - 145 mmol/L Potassium, pl 4.8 3.3 - 4.9 mmol/L [facility] Chloride 107 97 - 110 mmol/L [facility] CO2 27 22 - 32 mmol/L [facility] Anion gap 8 2 - 15 mmol/L [facility] BUN 60(H) 6 - 25 mg/dL [facility] Creatinine 2.72(H) 0.80 - 1.30 mg/dL [facility] Glucose 94 70 - 199 mg/dL [facility] Comment: Interpretive Data Fasting [...] 2022. Calcium 9.0 8.5 - 10.3 mg/dL [facility] Phosphorus, pl 3.5 2.3 - 4.5 mg/dL [facility] Albumin 3.8 3.5 - 5.0 g/dL [facility] Blood 06/08/2024 10:4 4 AM STUDENT UNION CONSULTANT 06/08/2024 11:23 AM STUDENT UNION CONSULTANT us Lin Guerrero MD LAB BLOOD ORDERABLES Final Resul t Performing Organization Address City/[facility]/ZIP Co de Phone Number [facility] Department [place] [address] * (ABNORMAL) eGFR (04/25/2024 9:45 AM STUDENT UNION CONSULTANT) eGFR 28(L) >=60 mL/min/1. 73 m2 Comment: [...] last reviewed 2021. Blood 04/25/2024 9:45 AM STUDENT UNION CONSULTANT 04/25/2024 9:51 AM STUDENT UNION CONSULTANT us Gautam Cope MD LAB BLOOD ORDERABLES Final [facility]ul t [facility] [place] [address] * (ABNORMAL) Vitamin D 25 hydroxy (04/25/2024 9:45 AM STUDENT UNION CONSULTANT) Vitamin D 25-OH 22(L) 30 - 80 ng/mL Blood 04/25/2024 9:45 AM STUDENT UNION CONSULTANT 04/25/2024 9:51 AM STUDENT UNION CONSULTANT us Gautam Cope MD LAB BLOOD ORDERABLES Final Resul t Performing Organization Address [facility] Co de Phone Number [facility] [place] [address] * (ABNORMAL) Total testosterone (04/25/2024 9:45 AM STUDENT UNION CONSULTANT) Testosterone <5.0(L) 193.0 - 740.0 ng/dL Blood 04/25/2024 9:45 AM STUDENT UNION CONSULTANT 04/25/2024 11:20 AM STUDENT UNION CONSULTANT us Gautam Cope MD LAB BLOOD ORDERABLES Final Resul t Performing Organization Address [facility] de Phone Number [facility] [employer] [place] [address] * PSA diagnostic (04/25/2024 9:45 AM STUDENT UNION CONSULTANT) PSA-Total <0.02 <=6.20 ng/mL Comment: Interpretive Data [...] last revised 21. Blood 04/25/2024 9:45 AM STUDENT UNION CONSULTANT 04/25/2024 9:51 AM STUDENT UNION CONSULTANT us Gautam Cope MD LAB BLOOD ORDERABLES Final Resul t Performing Organization Address [facility] de Phone Number [facility] [employer] [place] [address] * Lactate dehydrogenase (LD) (04/25/2024 9:45 AM STUDENT UNION CONSULTANT) Pathologist [facility] Lactate dehydrogenase (LDH) 157 100 - 250 Units/L Blood 04/25/2024 9:45 AM STUDENT UNION CONSULTANT 04/25/2024 9:51 AM STUDENT UNION CONSULTANT Gautam Cope MD LAB BLOOD ORDERABLES Final Resul t Performing Organization Address [facility] [place] [address] * (ABNORMAL) Hemoglobin A1c (04/25/2024 9:45 AM STUDENT UNION CONSULTANT) [facility] Hgb A1C 8.1(H) 4.0 - 5.6 % Estimated Average Glucose 186 mg/dL [facility] [...] a fasting glucose. Blood 04/25/2024 9:45 AM STUDENT UNION CONSULTANT 04/25/2024 9:51 AM STUDENT UNION CONSULTANT us Gautam Cope MD LAB BLOOD ORDERABLES Final Resul t Performing Organization Address [facility] [place] [address] * Vitamin B12 (04/25/2024 9:45 AM STUDENT UNION CONSULTANT) Pathologist [facility] Vitamin B12 390 230 - 1,250 pg/mL Blood 04/25/2024 9:45 AM STUDENT UNION CONSULTANT 04/25/2024 11:20 AM STUDENT UNION CONSULTANT us Gautam Cope MD LAB BLOOD ORDERABLES Final Resul t [facility] Department [place] [address] * (ABNORMAL) Comprehensive metabolic panel (04/25/2024 9:45 AM STUDENT UNION CONSULTANT) Sodium 142 135 - 145 mmol/L Potassium, pl 4.5 3.3 - 4.9 mmol/L [facility] Chloride 106 97 - 110 mmol/L [facility] CO2 29 22 - 32 mmol/L [facility] Anion gap 7 2 - 15 mmol/L [facility] BUN 41(H) 6 - 25 mg/dL [facility] Creatinine 2.25(H) 0.80 - 1.30 mg/dL [facility] Glucose 201(H) 70 - 199 mg/dL [facility] Comment: Interpretive Data Fasting [...] Calcium 9.2 8.5 - 10.3 mg/dL [facility] Bilirubin, total 0.3 0.1 - 1.2 mg/dL [facility] Protein, pl 6.7 6.5 - 8.5 g/dL [facility] Albumin 3.9 3.5 - 5.0 g/dL [facility] Alk phos 128 40 - 130 Units/L [facility] ALT 10 7 - 55 Units/L [facility] AST 12 10 - 50 Units/L [facility] Blood 04/25/2024 9:45 AM STUDENT UNION CONSULTANT 04/25/2024 9:51 AM STUDENT UNION CONSULTANT us Gautam Cope MD LAB BLOOD ORDERABLES Final Resul t [facility] Department [place] [address] * (ABNORMAL) Differential, auto (04/25/2024 9:40 AM STUDENT UNION CONSULTANT) Neutrophil abs 9.1(H) 1.5 - 6.5 K/cumm Comment:Testing performed by : [facility], [address] [place] [phone] Lymphocyte abs 1.6 0.8 - 3.3 K/cumm [facility] Comment:Testing performed by : [facility], [address] [place] [phone] Monocyte abs 0.9(H) 0.2 - 0.8 K/cumm [facility] Comment:Testing performed by : [facility], [address] [place], [place] [id number] Eosinophil abs 0.2 0.0 - 0.5 K/cumm [facility] Comment:Testing performed by : [facility], [address] [place] [phone] Basophil abs 0.1 0.0 - 0.1 K/cumm [facility] Comment:Testing performed by : [facility], [address] [place] [phone] Neutrophil pct 76.7 % [facility] Comment: Interpretive Data Percent cell count reference ranges are not reported, since discordance with absolute values may lead to misinterpretation of CBC data. Current Interpretive Data was last revised on 2017. Testing performed by: [facility], [address] [place] [phone] Lymphocyte pct 13.2 % [facility] Comment: Interpretive Data Percent cell count reference ranges are not reported, since discordance with absolute values may lead to misinterpretation of CBC data. Current Interpretive Data was last revised on 2017. Testing performed by: [facility], [address] [place] [phone] Monocyte pct 7.1 % [facility] Comment: Interpretive Data Percent cell count reference ranges are not reported, since discordance with absolute values may lead to misinterpretation of CBC data. Current Interpretive Data was last revised on 2017. Testing performed by: [facility], [address] [place] [phone] Eosinophil pct 1.8 % [facility] Comment: Interpretive Data Percent cell count reference ranges are not reported, since discordance with absolute values may lead to misinterpretation of CBC data. Current Interpretive Data was last revised on 2017. Testing performed by: [facility], [address] [place] [phone] Basophil pct 1.2 % [facility] Comment: Interpretive Data Percent cell count reference ranges are not reported, since discordance with absolute values may lead to misinterpretation of CBC data. Current Interpretive Data was last revised on 2017. Testing performed by: [facility], [address] [place] [address] Blood 04/25/2024 9:40 AM STUDENT UNION CONSULTANT 04/25/2024 9:45 AM STUDENT UNION CONSULTANT us Gautam Cope MD LAB BLOOD ORDERABLES Final Resul t [facility] Department [place] [address] * (ABNORMAL) CBC with auto differential (04/25/2024 9:40 AM STUDENT UNION CONSULTANT) WBC 11.9(H) 3.8 - 9.9 K/cumm Comment:Testing performed by : [facility], [address] [place] [address] Hgb 12.2(L) 13.0 - 17.5 g/dL [facility] Comment:Testing performed by : [facility], [address] [place] [address] Hct 38.8(L) 38.9 - 50.3 % [facility] Comment:Testing performed by : [facility], [address] [place], [place] [phone] Plt 369 150 - 400 K/cumm [facility] Comment:Testing performed by : [facility], [address] [place] [address] MPV 7.7 6.8 - 10.4 fL [facility] Comment:Testing performed by : [facility], [address] [place], [place] [phone] RBC 4.38 4.30 - 5.80 M/cumm [facility] Comment:Testing performed by : [facility], [address] [place], [place] [phone] MCV 88.6 81.3 - 96.4 fL [facility] Comment:Testing performed by : [facility], [address] [place], [place] [phone] MCH 27.8 27.1 - 33.3 pg [facility] Comment:Testing performed by : [facility], [address] [place] [address] MCHC 31.3(L) 32.3 - 35.7 g/dL [facility] Comment:Testing performed by : [facility], [address] [place] [address] RDW CV 14.7 11.1 - 14.9 % [facility] Comment:Testing performed by : [facility], [address] [place] [address] NRBC abs 0.00 0.00 - 0.01 K/cumm [facility] Comment:Testing performed by : [facility], [address] [place] [address] Blood 04/25/2024 9:40 AM STUDENT UNION CONSULTANT 04/25/2024 9:45 AM STUDENT UNION CONSULTANT us Gautam Cope MD LAB BLOOD ORDERABLES Final Resul t [facility] Department [place] [address] * Dexa TBS Axial Skeleton Bone Density 1 or more sites (04/24/2024 11:56 AM STUDENT UNION CONSULTANT) Anatomical Region Laterality Modality Wrist, Body N/A Radiographic Roberta ging Narrative 04/24/2024 12:52 PM STUDENT UNION CONSULTANT Patient Name: David Wei Date of : 1940 Date of scan: 04/24/2024 Bone mineral density was performed on a [employer] Discovery Densitometer. Based on machine cross-calibration and [...] by the International Society of Clinical Densitometry. [id number] us Daquan George MD IM DXA PROCEDURES Final Result * (ABNORMAL) Lipid panel (03/08/2023 11:55 AM STUDENT UNION CONSULTANT) [facility] Cholesterol 193 30 - 199 mg/dL [facility] Comment: Interpretive Data Ages < or [...] revised on 2017. Triglycerides 250(H) <=149 mg/dL [facility] Comment: Interpretive Data Ages [...] revised on 2017. HDL 36(L) >=40 mg/dL [facility] Comment: Interpretive Data Ages [...] on 2017. LDL, calculated 107 <=129 mg/dL [facility] Comment: Interpretive Data Ages [...] revised on 2017. Non-HDL Cholesterol 157 mg/dL [facility] Comment: Interpretive Data Ages [...] last revised on 2017. Chol/HDL ratio 5 [facility] Blood 03/08/2023 11:5 5 AM STUDENT UNION CONSULTANT 03/08/2023 3:48 PM STUDENT UNION CONSULTANT Kraig Ching MD LAB BLOOD ORDERABLES Final Re sult Performing Organization Address [facility] de Phone Number [facility] Department [place] [address] * (ABNORMAL) Albumin Creatinine Ratio, Urine (01/01/2023 10:40 AM CDT) Albumin Ur 227.3 mg/L [facility] Comment: Interpretive Data No reference range established. Current interpretive data was last revised 2018. Creatinine Ur 66.5 mg/dL [facility] Comment: Interpretive Data No reference range established. Current interpretive data was last revised 2018. Albumin Creatinine Ratio, Ur 342(H) 1 - 29 mg/g [facility] Urine 01/01/2023 10:4 0 AM CDT 01/01/2023 10:45 AM CDT Kraig Ching MD LAB URINE ORDERABLES Final Re sult Performing Organization Address [facility] Co de Phone Number [facility] Department [place] [address] * DIABETES EYE EXAM (06/29/2018) [facility] Diabetic Eye Exam Normal us Historical Provider HEALTH MAINTENANCE Final Result from Last 3 Months or Most Recently Relevant to Health Maintenance Insurance T MEDICARE T MEDICARE T MEDICARE [employer]ET[employer] MEDICARE Advance Directives For more information, please contact: [phone] * Full Code (Latest Code Status on File) Date Activated Date Inactivated Comments 12/16/2017 2:44 PM 12/16/2017 7:18 PM Care Teams Roll Up Operator Relationship Specialty Start Date End Date Kraig Ching MD [address] [place] [address] PCP - General 07/10/16 Gautam Cope MD [address] [place] [address] Medical Oncologist/Bilingual Administrative Assistant Medical Oncology 08/18/18 Tramaine Roe MD [address] [place] [address] Referring Physician Urology 08/18/18 Sukhwinder Uribe MD [address] [facility] [address] [place] [address] Consulting Physician Urology 08/18/18 Shay Guillermo MD [address] [facility] [address] [place] [address] Referring Physician Urology 08/18/18 Marsha Landis, RN Registered Nurse 11/17/18
--- OUTSIDE RECORDS SUMMARY | 2024-07-20 21:38 | XMS_ITS | Encounter Summary ---
Author Organization [facility] Healthcare Address [address] [place] [address] Care Team Providers Care Tobacco Wetter Name Role Phone Kraig Ching MD Primary Care Provider [phone] Gautam Cope MD Unavailable Tramaine Roe MD Unavailable [phone] Sukhwinder Uribe MD Unavailable [phone] Shay Guillermo MD Unavailable [phone] Marsha Landis RN Unavailable Unavailab le Reason for Visit * Reason Comments UTI Oncologist wants pt tested for UTI r/t high white blood cell count. Pt c/o urinary frequency has been going on for a while. Encounter Details Date Type Department Care Team (Late st Contact Info) Description 07/19/2024 2:00 PM CDT Office Visit [facility] at [address] [address] Clau Childers PA [address] [place] [address] [address] [place], [place] [id number] Urinary frequency (Primary Dx); Leukocytosis, unspecified type Social History Tobacco Use Types Packs/Day Years Used Date Smoking Tobacco: Former Cigarettes 0.3 52 1 958 - 2009 Passive Smoke Exposure: Past Smokeless Tobacco: Never Comments:Smoking History Pac ks/day: 10 Cigarettes Alcohol Use Standard Drinks/Week Comments Yes 0 (1 standard drink = 0.6 oz pur e alcohol) Occasional glass of wine. [facility] Utilities Answer Date Recorded In the past 12 months has e electric, gas, oil, or water [employer] threatened to shut off services in your [...] often do you attend chur ch or taoist services? Never 04/04/2024 Do you belong to any clubs o r organizations such as anabaptism groups, unions, fraternal or athletic groups, or [...] any time in the past 12 m [facility], were you homeless or living in a prison (including now)? No 04/04/2024 Personal Safety Answer Date Recorded Have you ever been in or are you currently in a harmful physical or emotional relationship or is someone making you feel afraid or unsafe? 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 (A) Negative Urobilinogen, urine, POC 0.2 0.2 - 1.0 mg/dL Nitrite, ur, POC Negative Negative Leukocytes, ur, POC Negative Negative Lot Number [id number] Disposition Treatment plan including expectations, follow up, [...] General Goal - Patient establishes care with [facility]CO Care Management On track(2023 1:22 PM BILINGUAL OPERATOR) No Clarissa Luna RN Note: Problem: Lack of [facility] communication Interventions: - Provide coordination between [facility] company and patient. - Ensure [facility] has appropriate referral and orders to establish care with patient. - Follow up with patient to ensure initial visit was completed by [facility] and that a [facility] plan has been started. ZAK General Goal - Patient schedules and keeps appointments with all recommended providers O Care Management Improving( 1:22 PM BILINGUAL OPERATOR) No Clarissa Luna RN Note: Problem: Potential [...] Large Ketones, ur, POC Negative Negative Specific [place], POC 1.015 1.003 - 1.030 Blood, ur, POC Hemolyzed, trace(A) Negative pH, ur, POC 6.0 5.0 - 8.0 Protein, ur, POC 30.(A) Negative Urobilinogen, urine, POC 0.2 0.2 - 1.0 mg/dL Nitrite, ur, POC Negative Negative Leukocytes, ur, POC Negative Negative Lot Number [id number] Urine 07/19/2024 2:16 PM CDT Clau [facility]QU[facility] POINT OF CARE TEST ORDER ALAN Final Result documented in this encounter Visit Diagnoses Diagnosis Urinary frequency- Primary Leukocytosis, unspecified type documented in this encounter Care Teams Tobacco Wetter Relationship Specialty Start Date End Date Kraig Ching MD [address] [facility] [address] [place] [address] PCP - General 07/10/16 Gautam Cope MD [address] [facility] [address] [place] [address] Medical Oncologist/Mexican Food Cook Medical Oncology 08/18/18 Tramaine Roe MD [address] [facility] [address] [place] [address] Referring Physician Urology 08/18/18 Sukhwinder Uribe MD [address] [facility] [address] [place] [address] Consulting Physician Urology 08/18/18 Shay Guillermo MD [address] [facility] [address] [place] [address] Referring Physician Urology 08/18/18 Marsha Landis RN Registered Nurse 11/17/18 documented as of this encounter
--- OUTSIDE RECORDS SUMMARY | 2024-07-20 21:38 | XMS_ITS | Encounter Summary ---
Author Organization [facility] Address [address] [place] [address] Phone Care Team Providers Care Commercial Production Editor Name Role Phone Kraig Ching MD Primary Care Provider [phone] Gautam Cope MD Unavailable Tramaine Roe MD Unavailable [phone] Sukhwinder Uribe MD Unavailable [phone] Shay Guillermo MD Unavailable [phone] Marsha Landis RN Unavailable Unavailab Clarissa Harry RN Unavailable [phone] Encounter Details Date Type Department Care Team (Late st Contact Info) Description 12/09/2021 Telephone [facility] Oncology [address] [facility] Advanced Medicine 7th [place] [address] [place] [address] Muna Saleem RN Social History [...] on file 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 Gender Identity Not on file Sexual Orientation Not on file documented as of this encounter Functional Status documented as of this encounter Plan of Treatment Not on file documented as of this encounter Visit Diagnoses Not on filedocumented in this encounter Care Teams Commercial Production Editor Relationship Specialty Start Date End Date Kraig Ching MD [address] [place] [address] PCP - General 07/10/16 Gautam Cope MD [address] [place] [address] Medical Oncologist/Test Man Medical Oncology 08/18/18 Tramaine Roe MD [address] [place] [address] Referring Physician Urology 08/18/18 Sukhwinder Uribe MD [address] [place] [address] Consulting Physician Urology 08/18/18 Shay Guillermo MD [address] [place] [address] Referring Physician Urology 08/18/18 Marsha Landis, RN Registered Nurse 11/17/18 Clarissa Luna RN [address] [place] [address] [address] [place] [address] Box Folding Machine Operator 04/04/24 04/26/24 documented as of this encounter
--- OUTSIDE RECORDS SUMMARY | 2024-07-20 21:38 | XMS_ITS | Encounter Summary ---
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 GENERAL 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 Gender Identity Not on file Sexual Orientation Not on file documented as of this encounter Functional Status documented as of this encounter Plan of Treatment Scheduled Orders Name Type Priority Associated Diagnoses Orde r Schedule CARDIOLOGY DOCUMENT SCAN Cardiac Services Ordered: 03/21/2023 documented as of this encounter Visit Diagnoses Not on filedocumented in this encounter Care Teams Shoulder Boner Relationship Specialty Start Date End Date Kraig Ching MD [address] [facility] [address] [place] [address] PCP - General 07/10/16 Gautam Cope MD [address] [facility] [address] [place] [address] Medical Oncologist/Ski Production Supervisor Medical Oncology 08/18/18 Tramaine Roe MD [address] [facility] [address] [place] [address] Referring Physician Urology 08/18/18 Sukhwinder Uribe MD [address] [facility] [address] [place] [address] Consulting Physician Urology 08/18/18 Shay Guillermo MD [address] [facility] [address] [place] [address] Referring Physician Urology 08/18/18 Marsha Landis RN Registered Nurse 11/17/18 Clarissa Luna RN [address] [place] [address] [address] [place] [address] Classifying Machine Operator 04/04/24 04/26/24 documented as of this encounter
--- OUTSIDE RECORDS SUMMARY | 2024-07-20 21:38 | XMS_ITS | Encounter Summary ---
Author Organization [facility] Address [address] [place] [address] Phone Care Team Providers Care Webbing Inspector Name Role Phone Kraig Ching MD Primary Care Provider [phone] Gautam Cope MD Unavailable Tramaine Roe MD Unavailable [phone] Sukhwinder Uribe MD Unavailable [phone] Shay Guillermo MD Unavailable [phone] Marsha Landis RN Unavailable Unavailab Ilene Kaur RN Unavailable [phone] Clarissa Luna RN Unavailable [phone] Encounter Details Date Type Department Care Team (Late st Contact Info) Description 12/06/2018 Telephone [facility] Oncology [address] [facility] Advanced Medicine 7th [place] [address] Salena Bryan NP [address] [place] [address] Social History Tobacco Use Types Packs/Day Years [...] on file Legal Sex Male 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 Gender Identity Not on file Sexual Orientation Not on file documented as of this encounter Plan of Treatment Not on file documented as of this encounter Visit Diagnoses Not on filedocumented in this encounter Care Teams Webbing Inspector Relationship Specialty Start Date End Date Kraig Ching MD [address] [place] [address] PCP - General 07/10/16 Gautam Cope MD [address] [place] [address] Medical Oncologist/X Ray Operator Medical Oncology 08/18/18 Tramaine Roe MD [address] [place] [address] Referring Physician Urology 08/18/18 Sukhwinder Uribe MD [address] [place] [address] Consulting Physician Urology 08/18/18 Shay Guillermo MD [address] [place] [address] Referring Physician Urology 08/18/18 Marsha Landis, RN Registered Nurse 11/17/18 Ilene Fragoso RN [address] [facility] [place] [address] Health Service Worker 12/23/18 11/01/19 Clarissa Luna RN [address] [facility] [address] [place] [address] Health Service Worker 04/04/24 04/26/24 documented as of this encounter
--- OUTSIDE RECORDS SUMMARY | 2024-07-20 21:39 | XMS_ITS | Clinical Summary ---
Author Organization [facility] Address [address] [place] [address] Care Team Providers Care Atmospheric Chemist Name Role Phone Kraig Ching MD Primary Care Provider [phone] Gautam Cope MD Unavailable Tramaine Roe MD Unavailable [phone] Sukhwinder Uribe MD Unavailable [phone] Shay Guillermo MD Unavailable [phone] Marsha Landis RN Unavailable Unavailab le Allergies [...] 05/30/2024 Assessment & Plan (06/08/2024 4:46 AM MONUMENT SETTER): Continue current regimen.Limit nephrotoxins.Reviewed creatinine. Avoid NSAIDS. [...] 03/08/2023 Assessment & Plan (06/08/2024 4:46 AM MONUMENT SETTER): Hypertension is controlled. Continue current regimen. Assessment & Plan (10/05/2023 12:54 PM CDT): Hypertension is controlled. Decrease carvedilol to 12.5 mg. Assessment & Plan (03/08/2023 7:11 AM MONUMENT SETTER): Hypertension is controlled. Continue current regimen. 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 Avoid NSAIDS. Assessment & Plan (10/05/2023 5:50 AM CDT): Continue current regimen.Limit nephrotoxins.Reviewed creatinine. Avoid NSAIDS. Assessment & Plan (03/08/2023 7:12 AM MONUMENT SETTER): Continue current regimen.Limit nephrotoxins.Reviewed creatinine. Avoid NSAIDS. CKD (chronic kidney disease) 03/08/2022 Assessment & Plan (06/08/2024 4:45 AM MONUMENT SETTER): Limit nephrotoxins. Monitor creatinine. Avoid NSAIDS.Follow with Nephrology. 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 chronic kidney disease 2021 Gastroesophageal reflux disease 04/08/2021 Assessment & Plan (03/08/2023 11:17 AM MONUMENT SETTER): Reviewed dietary modifications. Continue PPI. Assessment & Plan (08/18/2022 6:36 AM CDT): Reviewed dietary modifications. Continue PPI. Assessment & Plan (02/12/2022 6:03 AM CDT): Reviewed dietary modifications. Continue PPI. Assessment & Plan (04/08/2021 5:55 AM MONUMENT SETTER): Reviewed dietary modifications. Continue PPI. 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 Continue home PT exercises. Advised using a walker. Assessment & Plan (08/18/2022 11:47 AM CDT): Continue oxycodone. Continue home PT exercises. Advised using a walker. Assessment & Plan (02/12/2022 11:41 AM CDT): Continue oxycodone. Continue home PT exercises. A prescription for a walker. Assessment & Plan (04/08/2021 5:55 AM MONUMENT SETTER): Continue oxycodone. Continue home PT exercises. Continue walker. Assessment & Plan (12/26/2020 10:48 AM CDT): Continue oxycodone. Script for walker. Assessment & Plan (09/26/2020 11:29 AM CDT): Continue ROM exercises and follow with Pain Management. Refill oxycodone as needed. Prostate cancer 09/06/2018 Assessment & Plan (06/08/2024 4:46 AM MONUMENT SETTER): Follow with Oncology. Continue Zytiga. Assessment & [...] 01/25/2018 Assessment & Plan (03/07/2018 6:54 AM MONUMENT SETTER): Hypertension is controlled. Continue current regimen. CHF [...] creatinine. Assessment & Plan (04/08/2021 5:54 AM MONUMENT SETTER): Hypertension is controlled. Continue current regimen.Limit nephrotoxins. [...] NSAIDS. Assessment & Plan (03/07/2018 6:55 AM MONUMENT SETTER): Hypertension is controlled. Continue current regimen. Limit nephrotoxins. Monitor creatinine. Avoid NSAIDS. Assessment & Plan (11/25/2017 7:09 AM CDT): Limit nephrotoxins. Monitor creatinine. Avoid NSAIDS. Duodenal ulcer 11/25/2017 Assessment & Plan (11/25/2017 10:16 AM CDT): Reviewed GI note . Continue pantoprazole. Avoid NSAIDS. Refer for EGD. PAF (paroxysmal atrial fibrillation) 10/22/2017 Assessment & Plan (03/07/2018 6:54 AM MONUMENT SETTER): Continue rate control. Continue anticoagualtion. Anticipate starting [...] NSAIDS. Assessment & Plan (03/07/2018 6:55 AM MONUMENT SETTER): Limit nephrotoxins. Monitor creatinine. Avoid NSAIDS. Assessment [...] diet. Assessment & Plan (04/08/2021 10:17 AM MONUMENT SETTER): Reviewed HgBA1C elevated at 10.6 on 04/01/21. [...] therapy. Assessment & Plan (03/07/2018 6:57 AM MONUMENT SETTER): Continue pravastatin. He had myalgias on other [...] diet. Assessment & Plan (03/02/2017 6:53 AM MONUMENT SETTER): Hypertension is controlled. Continue current regimen. Reviewed low sodium diet. Assessment & Plan (01/15/2017 6:44 AM CDT): Reviewed proper diet. Continue statin therapy. Hyperlipidemia 01/12/2012 Assessment & Plan (06/08/2024 4:46 AM MONUMENT SETTER): Continue pravastatin. Order lipid panel at next [...] 05/28/2023 Assessment & Plan (03/08/2023 11:40 AM MONUMENT SETTER): Agree with cataract surgery. He has 1st [...] 08/30/2017 Assessment & Plan (03/02/2017 10:48 AM MONUMENT SETTER): Mood is improved. Monitor off medication. Impotence [...] 200. Assessment & Plan (03/07/2018 6:56 AM MONUMENT SETTER): Continue current regimen. Advised annual eye exam.Limit [...] - 07/19/2024 11:59 PM CDT Hospital Encounter [address] [address] Urinary frequency Discharge Disposition: Discharge to home or self care 07/19/2024 2:00 PM CDT Office Visit [facility] at [address] [phone] Clau Childers PA Urinary frequency (Primary Dx); Leukocytosis, unspecified type 07/18/2024 1:45 PM CDT Infusion [facility] - Infusion [address] [facility] Floor 6 [place] [address] Prostate cancer (HCC) (Primary Dx) 07/18/2024 1:00 PM CDT Office Visit [facility] Oncology [address] [place] [address] Floor 5 [place] [phone] Gautam Cope MD Prostate cancer (HCC) (Primary Dx) 07/18/2024 12:00 PM CDT Lab [facility] - Lab Collection [facility] [place] [address] [place] [address] Prostate cancer (HCC) 07/18/2024 Patient Self-Triage [facility] [address] [place] [address] Mychart, Generic Provider 07/01/2024 Orders Only [facility] [address] [place] [address] Scanning, Provider 06/14/2024 6:15 PM MONUMENT SETTER Lab [facility] [address] [place] [phone] GABRIELA (acute kidney injury) 06/14/2024 3:00 PM MONUMENT SETTER Office Visit [facility] Nephrology [address] [place] [address] Medicine 5th [place] [address] [place] [phone] Lin Guerrero MD Chronic kidney disease, stage 3b (HCC) (Primary Dx); GABRIELA (acute kidney injury); Hypertension, essential; Secondary hyperparathyroidism of renal origin 06/08/2024 12:00 PM MONUMENT SETTER Lab [facility] ([facility]) [address] [place] [phone] 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 chronic kidney disease (HCC); Hypertension, essential; Secondary hyperparathyroidism of renal origin; Stage 3 chronic kidney disease, unspecified whether stage 3a or 3b CKD (HCC); Primary hypertension; Vitamin D deficiency; Type 2 diabetes mellitus with stage 3a chronic kidney disease, with long-term current use of insulin (HCC); Fatigue, unspecified type; GABRIELA (acute kidney injury) 06/08/2024 9:45 AM MONUMENT SETTER Office Visit [address] [place] [address] Kraig Ching MD Hypertension, essential (Primary Dx); Prostate cancer (HCC); Type 2 diabetes mellitus with stage 3b chronic kidney disease, with long-term current use of insulin (HCC); Stage 3b chronic kidney disease (HCC); Hyperlipidemia, unspecified hyperlipidemia type 05/24/2024 Orders Only [facility] Nephrology [address] [place] [address] [place] [address] [place] [address] Lin Guerrero MD 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 [...] type; GABRIELA (acute kidney injury) 05/02/[address] [address] Kraig Ching MD Medical Question/Miscellaneous 04/28/[address] 5th [place] [address] Stef Roman NP 04/28/2024 Orders Only [address] [place] [address] Stef Roman NP 04/25/2024 11:45 AM MONUMENT SETTER Infusion [facility] [place] - Infusion [address] [facility] Floor 5 [place] [address] Prostate cancer (HCC) (Primary Dx) 04/25/2024 10:45 AM MONUMENT SETTER Office Visit [facility] On[facility] [address] [facility] Floor 5 [place] [phone] Gautam Cope MD Prostate cancer (HCC) 04/25/2024 9:45 AM MONUMENT SETTER Lab [facility] - Lab Collection [address] [facility] Floor [address] [place] [address] Prostate cancer (HCC) 04/24/2024 12:20 PM MONUMENT SETTER Office Visit [address] 5th [place] [address] [place] [phone] Daquan George MD Age-related osteoporosis without current pathological fracture (Primary Dx); Alkaline phosphatase elevation; Thyroid condition 04/24/2024 11:50 AM MONUMENT SETTER Clinical Support [address] [place] [address] [place] [phone] Age-related osteoporosis without current pathological fracture (Primary Dx) 04/24/[address] 5th [place] [address] [place] [phone] Daquan George MD from Last 3 Months [...] 01/17/2019 Influenza, Unspecified 01/17/2019(Deferred: Daisy ent Refused) [employer] SARS-CoV-2 Vaccination 06/14/2020, 06/14/2020 Pfizer SARS-CoV-2 [...] pur e alcohol) Occasional glass of wine. [facility] Utilities Answer Date Recorded In the past 12 months has [employer], gas, oil, or water [employer] threatened to shut off services in your [...] How often do you attend chur or anabaptism services? Never 04/04/2024 Do you belong to any clubs o r organizations such as taoist groups, unions, fraternal or athletic groups, or [...] any time in the past 12 m [facility], were you homeless or living in a halfway (including now)? No 04/04/2024 Personal Safety Answer Date Recorded Have you ever been in or are you currently in a harmful physical or emotional relationship or is someone making you feel afraid or unsafe? Denies 06/09/2023 Sex and Gender Information Value Date Recorded Sex Assigned at Not on file Legal Sex Male 4:46 PM MONUMENT SETTER Gender Identity Not on file Sexual [...] cm (5' 9 ) 06/14/2024 2:58 PM MONUMENT SETTER Body Mass Index 29.98 06/14/2024 2:58 PM MONUMENT SETTER Plan of Treatment Health Maintenance Due Date [...] General Goal - Patient establishes care with [facility] ACO Care Management On track(2023 1:22 PM MONUMENT SETTER) No Clarissa Luna RN Note: Problem: Lack of [facility] communication Interventions: - Provide coordination between [facility] company and patient. - Ensure [facility] has appropriate referral and orders to establish care with patient. - Follow up with patient to ensure initial visit was completed by [facility] and that a [facility] plan has been started. ZAK General Goal - Patient schedules and keeps appointments with all recommended providers ACO Care Management Improving( 1:22 PM MONUMENT SETTER) No Clarissa Luna RN Note: Problem: Potential [...] medication regimen. Medical Devices Implanted Type Area Conversion Worker Device Identifier Shelf Expiration Date Model / Serial / Lot [employer] Lens Iol Cna0t0.195 [employer]onom Cna0t0.195 - [id number] - [id number] Implanted:Qty: 1 on 06/09/2023 by Higinio Connolly MD at [facility] Lens Right: Eye [employer] [id number] 10/27/2025 CNA0T0.19 5 / [id number] / [employer] Lens Iol Cna0t0.200 [employer] Cna0t0.200 - [id number] - [id number] Implanted:Qty: 1 on 05/19/2023 by Higinio Connolly MD at [facility] Left: Eye [employer] [id number] 10/06/2025 CNA0T0.20 0 / [id number] / Procedures Procedure Name Priority Date/Time [...] AM CDT EGFR Routine 06/14/2024 3:48 PM MONUMENT SETTER GABRIELA (acute kidney injury) RENAL FUNCTION PANEL Routine 06/14/2024 3:48 PM MONUMENT SETTER GABRIELA (acute kidney injury) URINALYSIS AND REFLEX TO MICROSCOPIC Routine 06/08/2024 10:47 AM MONUMENT SETTER 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 chronic kidney disease (HCC) Hypertension, essential Secondary hyperparathyroidism of renal origin Stage 3 chronic kidney disease, unspecified whether stage 3a or 3b CKD (HCC) Primary hypertension Vitamin D deficiency Type 2 diabetes mellitus with stage 3a chronic kidney disease, with long-term current use of insulin (HCC) Fatigue, unspecified type GABRIELA (acute kidney injury) EGFR Routine 06/08/2024 10:44 AM MONUMENT SETTER 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 chronic kidney disease (HCC) Hypertension, essential Secondary hyperparathyroidism of renal origin Stage 3 chronic kidney disease, unspecified whether stage 3a or 3b CKD (HCC) Primary hypertension Vitamin D deficiency Type 2 diabetes mellitus with stage 3a chronic kidney disease, with long-term current use of insulin (HCC) Fatigue, unspecified type GABRIELA (acute kidney injury) DIFFERENTIAL AUTO Routine 06/08/2024 10:44 AM MONUMENT SETTER 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 chronic kidney disease [...] RENAL FUNCTION PANEL Routine 06/08/2024 10:44 AM MONUMENT SETTER 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 chronic kidney disease [...] D 25 HYDROXY Routine 06/08/2024 10:44 AM MONUMENT SETTER 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 chronic kidney disease [...] WITH AUTO DIFFERENTIAL Routine 06/08/2024 10:44 AM MONUMENT SETTER 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 chronic kidney disease (HCC) Hypertension, essential Secondary hyperparathyroidism of renal origin Stage 3 chronic kidney disease, unspecified whether stage 3a or 3b CKD (HCC) Primary hypertension Vitamin D deficiency Type 2 diabetes mellitus with stage 3a chronic kidney disease, with long-term current use of insulin (HCC) Fatigue, unspecified type GABRIELA (acute kidney injury) PTH Routine 06/08/2024 10:44 AM MONUMENT SETTER 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 chronic kidney disease [...] RATIO, URINE, RANDOM Routine 06/08/2024 10:44 AM MONUMENT SETTER 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 chronic kidney disease (HCC) Hypertension, essential Secondary hyperparathyroidism of renal origin Stage 3 chronic kidney disease, unspecified whether stage 3a or 3b CKD (HCC) Primary hypertension Vitamin D deficiency Type 2 diabetes mellitus with stage 3a chronic kidney disease, with long-term current use of insulin (HCC) Fatigue, unspecified type GABRIELA (acute kidney injury) EGFR STAT 04/25/2024 9:45 AM MONUMENT SETTER Prostate cancer (HCC) VITAMIN D 25 HYDROXY Routine 04/25/2024 9:45 AM MONUMENT SETTER Prostate cancer (HCC) TOTAL TESTOSTERONE Routine 04/25/2024 9:45 AM MONUMENT SETTER Prostate cancer (HCC) HEMOGLOBIN A1C Routine 04/25/2024 9:45 AM MONUMENT SETTER Prostate cancer (HCC) VITAMIN B12 Routine 04/25/2024 9:45 AM MONUMENT SETTER Prostate cancer (HCC) LACTATE DEHYDROGENASE Routine 04/25/2024 9:45 AM MONUMENT SETTER Prostate cancer (HCC) COMPREHENSIVE METABOLIC PANEL STAT 04/25/2024 9:45 AM MONUMENT SETTER Prostate cancer (HCC) PSA DIAGNOSTIC Routine 04/25/2024 9:45 AM MONUMENT SETTER Prostate cancer (HCC) DIFFERENTIAL AUTO Routine 04/25/2024 9:40 AM MONUMENT SETTER Prostate cancer (HCC) CBC WITH AUTO DIFFERENTIAL Routine 04/25/2024 9:40 AM MONUMENT SETTER Prostate cancer (HCC) DEXA TBS AXIAL SKELETON BONE DENSITY 1 OR MORE SITES Schedule Routine, Read Routine (OP Routine) 04/24/2024 11:56 AM MONUMENT SETTER Age-related osteoporosis without current pathological fracture LIPID PANEL Routine 03/08/2023 11:55 AM MONUMENT SETTER Hyperlipidemia, unspecified hyperlipidemia type ALBUMIN CREATININE RATIO, [...] Large Ketones, ur, POC Negative Negative Specific [place], POC 1.015 1.003 - 1.030 Blood, ur, POC Hemolyzed, trace(A) Negative pH, ur, POC 6.0 5.0 - 8.0 Protein, ur, POC 30.(A) Negative Urobilinogen, urine, POC 0.2 0.2 - 1.0 mg/dL Nitrite, ur, POC Negative Negative Leukocytes, ur, POC Negative Negative Lot Number [id number] Urine 07/19/2024 2:16 PM CDT us Clau [...] [facility] Department [place] [address] * (ABNORMAL) Differential, auto (07/18/2024 12:07 PM CDT) Neutrophil abs 17.55(H) 1.50 - 6.50 K/cumm Comment:Testing performed by : [facility], [address] [place] [phone] Lymphocyte abs 0.96 0.80 - 3.30 K/cumm [facility] Comment:Testing performed by : [facility], [address] [place] [address] Monocyte abs 1.48(H) 0.20 - 0.80 K/cumm [facility] Comment:Testing performed by : [facility], [address] [place], [place] [id number] Eosinophil abs 0.06 0.00 - 0.50 K/cumm [facility] Comment:Testing performed by : [facility], [address] [place], [place] [id number] Basophil abs 0.03 0.00 - 0.10 K/cumm [facility] Comment:Testing performed by : [facility], [address] [place], [place] [id number] Neutrophil pct 87.4 % [facility] Comment: Interpretive Data Percent cell count reference ranges are not reported, since discordance with absolute values may lead to misinterpretation of CBC data. Current Interpretive Data was last revised on 2017. Testing performed by: [facility], [address] [place], [place] [id number] Lymphocyte pct 4.8 % [facility] Comment: Interpretive Data Percent cell count reference ranges are not reported, since discordance with absolute values may lead to misinterpretation of CBC data. Current Interpretive Data was last revised on 2017. Testing performed by: [facility], [address] [place] [address] Monocyte pct 7.4 % [facility] Comment: Interpretive Data Percent cell count reference ranges are not reported, since discordance with absolute values may lead to misinterpretation of CBC data. Current Interpretive Data was last revised on 2017. Testing performed by: [facility], [address] [place] [address] Eosinophil pct 0.3 % [facility] Comment: Interpretive Data Percent cell count reference ranges are not reported, since discordance with absolute values may lead to misinterpretation of CBC data. Current Interpretive Data was last revised on 2017. Testing performed by: [facility], [address] [place] [address] Basophil pct 0.2 % [facility] Comment: Interpretive Data Percent cell count reference ranges are not reported, since discordance with absolute values may lead to misinterpretation of CBC data. Current Interpretive Data was last revised on 2017. Testing performed by: [facility], [address] [place] [address] Blood 07/18/2024 12:0 7 PM CDT 07/18/2024 12:22 PM CDT us Gautam Cope MD LAB BLOOD ORDERABLES Final Resul t [facility] Department [place] [address] * (ABNORMAL) CBC with auto differential (07/18/2024 12:07 PM CDT) WBC 20.09(H) 3.80 - 9.90 K/cumm Comment:Testing performed by : [facility], [address] [place] [address] Hgb 12.1(L) 13.0 - 17.5 g/dL [facility] Comment:Testing performed by : [facility], [address] [place] [address] Hct 38.2(L) 38.9 - 50.3 % [facility] Comment:Testing performed by : [facility], [address] [place] [address] Plt 451(H) 150 - 400 K/cumm [facility] Comment:Testing performed by : [facility], [address] [place] [address] MPV 7.7 6.8 - 10.4 fL [facility] Comment:Testing performed by : [facility], [address] [place] [address] RBC 4.46 4.30 - 5.80 M/cumm [facility] Comment:Testing performed by : [facility], [address] [place] [phone] MCV 85.5 81.3 - 96.4 fL [facility] Comment:Testing performed by : [facility], [address] [place], [place] [phone] MCH 27.1 27.1 - 33.3 pg [facility] Comment:Testing performed by : [facility], [address] [place], [place] [phone] MCHC 31.7(L) 32.3 - 35.7 g/dL [facility] Comment:Testing performed by : [facility], [address] [place], [place] [phone] RDW CV 14.9 11.1 - 14.9 % [facility] Comment:Testing performed by : [facility], [address] [place], [place] [phone] NRBC abs 0.00 0.00 - 0.01 K/cumm [facility] Comment:Testing performed by : [facility], [address] [place], [place] [phone] Blood 07/18/2024 12:0 7 PM CDT 07/18/2024 12:22 PM CDT us Gautam Cope MD LAB BLOOD ORDERABLES Final Resul t [facility] Department [place] [address] * PSA diagnostic (07/18/2024 12:07 PM CDT) [...] ORDERABLES Final Resul t Performing Organization Address [facility] [place] [facility] de Phone Number [facility] [place] [address] * Lactate dehydrogenase (LD) (07/18/2024 12:07 PM CDT) Lactate dehydrogenase (LDH) 216 100 - 250 Units/L Blood 07/18/2024 12:0 7 PM CDT 07/18/2024 12:25 PM CDT Result Tenisha Cope MD LAB BLOOD ORDERABLES Final Resul t Performing Organization Address [facility] Phone Number [facility] [place] [address] * (ABNORMAL) Hemoglobin A1c (07/18/2024 12:07 PM CDT) Hgb A1C 8.0(H) 4.0 - 5.6 % Estimated Average Glucose 183 mg/dL [facility] Comment: The [...] ORDERABLES Final Resul t Performing Organization Address [facility] [place] [facility] de Phone Number [facility] [place] [address] * (ABNORMAL) Comprehensive metabolic panel (07/18/2024 12:07 PM CDT) Sodium 142 135 - 145 mmol/L Potassium, pl 4.6 3.3 - 4.9 mmol/L [facility] Chloride 106 97 - 110 mmol/L [facility] CO2 24 22 - 32 mmol/L [facility] Anion gap 12 2 - 15 mmol/L [facility] BUN 52(H) 6 - 25 mg/dL [facility] Creatinine 2.66(H) 0.80 - 1.30 mg/dL [facility] Glucose 164 70 - 199 mg/dL [facility] [...] 2022. Calcium 9.0 8.5 - 10.3 mg/dL [facility] Bilirubin, total 0.5 0.1 - 1.2 mg/dL [facility] Protein, pl 6.7 6.5 - 8.5 g/dL [facility] Albumin 4.0 3.5 - 5.0 g/dL [facility] Alk phos 126 40 - 130 Units/L [facility] ALT 10 7 - 55 Units/L [facility] AST 13 10 - 50 Units/L [facility] Blood 07/18/2024 12:0 7 PM CDT 07/18/2024 12:25 PM CDT us Gautam Cope MD LAB BLOOD ORDERABLES Final Resul t [facility] Department [place] [address] * SCAN - RADIOLOGY/IMAGING (07/01/2024 9:44 AM CDT) Anatomical Region Laterality Modality Other us Provider Scanning Final Result * (ABNORMAL) eGFR (06/14/2024 3:48 PM MONUMENT SETTER) eGFR 26(L) >=60 mL/min/1. 73 m2 Comment: [...] last reviewed 2021. Blood 06/14/2024 3:48 PM MONUMENT SETTER 06/14/2024 4:07 PM MONUMENT SETTER Lin Guerrero MD LAB BLOOD ORDERABLES Final Resul t [facility] Department [place] [address] * (ABNORMAL) Renal function panel (06/14/2024 3:48 PM MONUMENT SETTER) Sodium 143 135 - 145 mmol/L Potassium, pl 5.0(H) 3.3 - 4.9 mmol/L [facility] Chloride 105 97 - 110 mmol/L [facility] CO2 28 22 - 32 mmol/L [facility] Anion gap 10 2 - 15 mmol/L [facility] BUN 48(H) 6 - 25 mg/dL [facility] Creatinine 2.42(H) 0.80 - 1.30 mg/dL [facility] Glucose 152 70 - 199 mg/dL [facility] 2022. Calcium 8.7 8.5 - 10.3 mg/dL [facility] Phosphorus, pl 3.1 2.3 - 4.5 mg/dL [facility] Albumin 3.9 3.5 - 5.0 g/dL [facility] Blood 06/14/2024 3:48 PM MONUMENT SETTER 06/14/2024 4:03 PM MONUMENT SETTER us Lin Guerrero MD LAB BLOOD ORDERABLES Final Resul t [facility] One [facility] Department [place] [address] * Urinalysis reflex to microscopic (06/08/2024 10:47 AM MONUMENT SETTER) Color, ur Straw Yellow Clarity, ur Clear Clear [facility] Specific gravity, ur 1.012 1.003 - 1.030 [facility] pH, urine 6.0 [facility] Comment: Interpretive Data U rine pH is affected by diet, medications, systemic acid-base disturbances, and renal tubular function. pH may affect urinary stone formation. For example, urine pH below 6.0 may help reduce the tendency for calcium phosphate stones and pH greater than 6.0 may reduce the tendency for uric acid stone formation. Source: [employer] Current Interpretive Data was last revised on 2017 Protein, ur ql Trace Negative [facility] Glucose, ur ql Negative Negative [facility] Ketones, ur Negative Negative [facility] Bilirubin, ur Negative Negative [facility] Blood, ur Negative Negative [facility] Urobilinogen, ur <2.0 <2.0 mg/dL [facility] Nitrite, ur Negative Negative [facility] Leukocyte esterase, ur Negative Negative [facility] UA reflex comment Reflex conditions for microscopic UA not met. [facility] Urine 06/08/2024 10:4 7 AM MONUMENT SETTER 06/08/2024 11:41 AM MONUMENT SETTER us Lin Guerrero MD LAB URINE ORDERABLES Final Resul t Performing Organization Address City/[facility]/ZIP Co de Phone Number [facility] [place] [address] * (ABNORMAL) eGFR (06/08/2024 10:44 AM MONUMENT SETTER) eGFR 22(L) >=60 mL/min/1. 73 m2 Comment: [...] reviewed 2021. Blood 06/08/2024 10:4 4 AM MONUMENT SETTER 06/08/2024 11:23 AM MONUMENT SETTER us Lin Guerrero MD LAB BLOOD ORDERABLES Final Resul t [facility] [place] [address] * (ABNORMAL) Differential, auto (06/08/2024 10:44 AM MONUMENT SETTER) Neutrophil abs 7.8(H) 1.5 - 6.5 K/cumm Imm gran abs 0.1 0.0 - 0.1 K/cumm [facility] Lymphocyte abs 1.9 0.8 - 3.3 K/cumm [facility] Monocyte abs 1.0(H) 0.2 - 0.8 K/cumm [facility] Eosinophil abs 0.1 0.0 - 0.5 K/cumm [facility] Basophil abs 0.0 0.0 - 0.1 K/cumm [facility] Neutrophil pct 71.1 % [facility] Comment: Interpretive Data Percent cell count reference ranges are not reported, since discordance with absolute values may lead to misinterpretation of CBC data. Current Interpretive Data was last revised on 2017. Imm gran pct 0.8 % [facility] Comment: Interpretive Data Percent cell count reference ranges are not reported, since discordance with absolute values may lead to misinterpretation of CBC data. Current Interpretive Data was last revised on 2017. Lymphocyte pct 17.1 % [facility] Comment: Interpretive Data Percent cell count reference ranges are not reported, since discordance with absolute values may lead to misinterpretation of CBC data. Current Interpretive Data was last revised on 2017. Monocyte pct 9.3 % [facility] Comment: Interpretive Data Percent cell count reference ranges are not reported, since discordance with absolute values may lead to misinterpretation of CBC data. Current Interpretive Data was last revised on 2017. Eosinophil pct 1.3 % [facility] Comment: Interpretive Data Percent cell count reference ranges are not reported, since discordance with absolute values may lead to misinterpretation of CBC data. Current Interpretive Data was last revised on 2017. Basophil pct 0.4 % [facility] Comment: Interpretive Data Percent cell count reference ranges are not reported, since discordance with absolute values may lead to misinterpretation of CBC data. Current Interpretive Data was last revised on 2017. Blood 06/08/2024 10:4 4 AM MONUMENT SETTER 06/08/2024 11:23 AM MONUMENT SETTER Lin Guerrero MD LAB BLOOD ORDERABLES Final Resul t Performing Organization Address [facility] Co de Phone Number [facility] Department [place] [address] * (ABNORMAL) CBC with auto differential (06/08/2024 10:44 AM MONUMENT SETTER) [facility] WBC 11.0(H) 3.8 - 9.9 K/cumm Hgb 12.0(L) 13.0 - 17.5 g/dL [facility] Hct 36.9(L) 38.9 - 50.3 % [facility] Plt 357 150 - 400 K/cumm [facility] MPV 9.8 9.1 - 12.3 fL [facility] RBC 4.27(L) 4.30 - 5.80 M/cumm [facility] MCV 86.4 81.3 - 96.4 fL [facility] MCH 28.1 27.1 - 33.3 pg [facility] MCHC 32.5 32.3 - 35.7 g/dL [facility] RDW CV 14.1 11.1 - 14.9 % [facility] RDW SD 44.2 35.7 - 48.1 fL [facility] NRBC abs 0.00 0.00 - 0.01 K/cumm [facility] Blood 06/08/2024 10:4 4 AM MONUMENT SETTER 06/08/2024 11:23 AM MONUMENT SETTER Lin Guerrero MD LAB BLOOD ORDERABLES Final Resul t Performing Organization Address [facility]/ZIP Co de Phone Number [facility] Department [place] [address] * (ABNORMAL) Protein / creatinine ratio, urine, random (06/08/2024 10:44 AM MONUMENT SETTER) [facility] Protein, ur, quant 21.3 mg/dL Comment: Interpretive Data No reference range established. Current interpretive data was last revised 2018. Creatinine Ur 52.2 mg/dL [facility] Comment: Interpretive Data No reference range established. Current interpretive data was last revised 2018. Protein/creatinin e ratio 408.0(H) 0.0 - 180.0 mg/g CR [facility] Urine 06/08/2024 10:4 4 AM MONUMENT SETTER 06/08/2024 11:23 AM MONUMENT SETTER us Lin Guerrero MD LAB URINE ORDERABLES Final Resul t Performing Organization Address [facility] Co de Phone Number [facility] [place] [address] * Vitamin D 25 hydroxy (06/08/2024 10:44 AM MONUMENT SETTER) Vitamin D 25-OH 42 30 - 80 ng/mL Blood 06/08/2024 10:4 4 AM MONUMENT SETTER 06/08/2024 11:23 AM MONUMENT SETTER us Lin Guerrero MD LAB BLOOD ORDERABLES Final Resul t Performing Organization Address [facility] de Phone Number [facility] Department [place] [address] * (ABNORMAL) PTH (06/08/2024 10:44 AM MONUMENT SETTER) PTH 78(H) 15 - 65 pg/mL Blood 06/08/2024 10:4 4 AM MONUMENT SETTER 06/08/2024 11:23 AM MONUMENT SETTER us Lin Guerrero MD LAB BLOOD ORDERABLES Final Resul t Performing Organization Address [facility] de Phone Number [facility] [place] [address] * (ABNORMAL) Renal function panel (06/08/2024 10:44 AM MONUMENT SETTER) Sodium 142 135 - 145 mmol/L Potassium, pl 4.8 3.3 - 4.9 mmol/L [facility] Chloride 107 97 - 110 mmol/L [facility] CO2 27 22 - 32 mmol/L [facility] Anion gap 8 2 - 15 mmol/L [facility] BUN 60(H) 6 - 25 mg/dL [facility] Creatinine 2.72(H) 0.80 - 1.30 mg/dL [facility] Glucose 94 70 - 199 mg/dL [facility] [...] 2022. Calcium 9.0 8.5 - 10.3 mg/dL [facility] Phosphorus, pl 3.5 2.3 - 4.5 mg/dL [facility] Albumin 3.8 3.5 - 5.0 g/dL [facility] Blood 06/08/2024 10:4 4 AM MONUMENT SETTER 06/08/2024 11:23 AM MONUMENT SETTER us Lin Guerrero MD LAB BLOOD ORDERABLES Final Resul t [facility] One [facility] Department [place] [address] * (ABNORMAL) eGFR (04/25/2024 9:45 AM MONUMENT SETTER) eGFR 28(L) >=60 mL/min/1. 73 m2 Comment: [...] last reviewed 2021. Blood 04/25/2024 9:45 AM MONUMENT SETTER 04/25/2024 9:51 AM MONUMENT SETTER Result Tenisha Cope MD LAB BLOOD ORDERABLES Final Resul t Performing Organization Address [facility] de Phone Number [facility] [place] [address] * (ABNORMAL) Vitamin D 25 hydroxy (04/25/2024 9:45 AM MONUMENT SETTER) Vitamin D 25-OH 22(L) 30 - 80 ng/mL Blood 04/25/2024 9:45 AM MONUMENT SETTER 04/25/2024 9:51 AM MONUMENT SETTER Result Tenisha Cope MD LAB BLOOD ORDERABLES Final Resul t Performing Organization Address [facility] de Phone Number [facility] Department [place] [address] * (ABNORMAL) Total testosterone (04/25/2024 9:45 AM MONUMENT SETTER) Testosterone <5.0(L) 193.0 - 740.0 ng/dL Blood 04/25/2024 9:45 AM MONUMENT SETTER 04/25/2024 11:20 AM MONUMENT SETTER Result Tenisha Cope MD LAB BLOOD ORDERABLES Final Resul t Performing Organization Address [facility]/ZIP Co de Phone Number [facility] [place] [address] * PSA diagnostic (04/25/2024 9:45 AM MONUMENT SETTER) Pathologist [facility] PSA-Total <0.02 <=6.20 ng/mL Comment: Interpretive Data [...] last revised 21. Blood 04/25/2024 9:45 AM MONUMENT SETTER 04/25/2024 9:51 AM MONUMENT SETTER Gautam Cope MD LAB BLOOD ORDERABLES Final Resul t Performing Organization Address [facility] de Phone Number [facility] Department [place] [address] * Lactate dehydrogenase (LD) (04/25/2024 9:45 AM MONUMENT SETTER) [facility] Lactate dehydrogenase (LDH) 157 100 - 250 Units/L Blood 04/25/2024 9:45 AM MONUMENT SETTER 04/25/2024 9:51 AM MONUMENT SETTER us Gautam Cope MD LAB BLOOD ORDERABLES Final Resul t Performing Organization Address [facility] de Phone Number [facility] [place] [address] * (ABNORMAL) Hemoglobin A1c (04/25/2024 9:45 AM MONUMENT SETTER) Pathologist [facility] Hgb A1C 8.1(H) 4.0 - 5.6 % Estimated Average Glucose 186 mg/dL [facility] a fasting glucose. Blood 04/25/2024 9:45 AM MONUMENT SETTER 04/25/2024 9:51 AM MONUMENT SETTER us Gautam Cope MD LAB BLOOD ORDERABLES Final Resul t Performing Organization Address [facility] de Phone Number [facility] [place] [address] * Vitamin B12 (04/25/2024 9:45 AM MONUMENT SETTER) Pathologist [facility] Vitamin B12 390 230 - 1,250 pg/mL Blood 04/25/2024 9:45 AM MONUMENT SETTER 04/25/2024 11:20 AM MONUMENT SETTER Gautam Cope MD LAB BLOOD ORDERABLES Final Resul t Performing Organization Address [facility] de Phone Number [facility] [place] [address] * (ABNORMAL) Comprehensive metabolic panel (04/25/2024 9:45 AM MONUMENT SETTER) Pathologist [facility] Sodium 142 135 - 145 mmol/L Potassium, pl 4.5 3.3 - 4.9 mmol/L [facility] Chloride 106 97 - 110 mmol/L [facility] CO2 29 22 - 32 mmol/L [facility] Anion gap 7 2 - 15 mmol/L [facility] BUN 41(H) 6 - 25 mg/dL [facility] Creatinine 2.25(H) 0.80 - 1.30 mg/dL [facility] Glucose 201(H) 70 - 199 mg/dL [facility] [...] total 0.3 0.1 - 1.2 mg/dL [facility] Protein, pl 6.7 6.5 - 8.5 g/dL [facility] Albumin 3.9 3.5 - 5.0 g/dL [facility] Alk phos 128 40 - 130 Units/L [facility] ALT 10 7 - 55 Units/L [facility] AST 12 10 - 50 Units/L [facility] Blood 04/25/2024 9:45 AM MONUMENT SETTER 04/25/2024 9:51 AM MONUMENT SETTER us Gautam Cope MD LAB BLOOD ORDERABLES Final Resul t [facility] One [facility] Department [place] [address] * (ABNORMAL) Differential, auto (04/25/2024 9:40 AM MONUMENT SETTER) Neutrophil abs 9.1(H) 1.5 - 6.5 K/cumm Comment:Testing performed by : [facility], [address] [place] [phone] Lymphocyte abs 1.6 0.8 - 3.3 K/cumm [facility] Comment:Testing performed by : [facility], [address] [place] [phone] Monocyte abs 0.9(H) 0.2 - 0.8 K/cumm [facility] Comment:Testing performed by : [facility], [address] [place] [phone] Eosinophil abs 0.2 0.0 - 0.5 K/cumm [facility] Comment:Testing performed by : [facility], [address] [place] [phone] Basophil abs 0.1 0.0 - 0.1 K/cumm [facility] Comment:Testing performed by : [facility], [address] [place] [phone] Neutrophil pct 76.7 % [facility] Comment: Interpretive Data Percent cell count reference ranges are not reported, since discordance with absolute values may lead to misinterpretation of CBC data. Current Interpretive Data was last revised on 2017. Testing performed by: [facility], [address] [place] [phone] Lymphocyte pct 13.2 % [facility] Comment: Interpretive Data Percent cell count reference ranges are not reported, since discordance with absolute values may lead to misinterpretation of CBC data. Current Interpretive Data was last revised on 2017. Testing performed by: [facility], [address] [place] [phone] Monocyte pct 7.1 % [facility] Comment: Interpretive Data Percent cell count reference ranges are not reported, since discordance with absolute values may lead to misinterpretation of CBC data. Current Interpretive Data was last revised on 2017. Testing performed by: [facility], [address] [place] [phone] Eosinophil pct 1.8 % [facility] Comment: Interpretive Data Percent cell count reference ranges are not reported, since discordance with absolute values may lead to misinterpretation of CBC data. Current Interpretive Data was last revised on 2017. Testing performed by: [facility], [address] [place] [phone] Basophil pct 1.2 % [facility] Comment: Interpretive Data Percent cell count reference ranges are not reported, since discordance with absolute values may lead to misinterpretation of CBC data. Current Interpretive Data was last revised on 2017. Testing performed by: [facility], [address] [place] [phone] Blood 04/25/2024 9:40 AM MONUMENT SETTER 04/25/2024 9:45 AM MONUMENT SETTER us Gautam Cope MD LAB BLOOD ORDERABLES Final Resul t [facility] One [facility] Department [place] [address] * (ABNORMAL) CBC with auto differential (04/25/2024 9:40 AM MONUMENT SETTER) WBC 11.9(H) 3.8 - 9.9 K/cumm Comment:Testing performed by : [facility], [address] [place] [address] Hgb 12.2(L) 13.0 - 17.5 g/dL [facility] Comment:Testing performed by : [facility], [address] [place] [address] Hct 38.8(L) 38.9 - 50.3 % [facility] Comment:Testing performed by : [facility], [address] [place] [address] Plt 369 150 - 400 K/cumm [facility] Comment:Testing performed by : [facility], [address] [place] [address] MPV 7.7 6.8 - 10.4 fL [facility] Comment:Testing performed by : [facility], [address] [place] [address] RBC 4.38 4.30 - 5.80 M/cumm [facility] Comment:Testing performed by : [facility], [address] [place] [address] MCV 88.6 81.3 - 96.4 fL [facility] Comment:Testing performed by : [facility], [address] [place] [address] MCH 27.8 27.1 - 33.3 pg [facility] Comment:Testing performed by : [facility], [address] [place] [address] MCHC 31.3(L) 32.3 - 35.7 g/dL [facility] Comment:Testing performed by : [facility], [address] [place] [phone] RDW CV 14.7 11.1 - 14.9 % [facility] Comment:Testing performed by : [facility], [address] [place] [phone] NRBC abs 0.00 0.00 - 0.01 K/cumm [facility] Comment:Testing performed by : [facility], [address] [place] [phone] Blood 04/25/2024 9:40 AM MONUMENT SETTER 04/25/2024 9:45 AM MONUMENT SETTER us Gautam Cope MD LAB BLOOD ORDERABLES Final Resul t Performing Organization Address City/State/[facility] Co de Phone Number [facility] One [facility] Department [place] [address] * Dexa TBS Axial Skeleton Bone Density 1 or more sites (04/24/2024 11:56 AM MONUMENT SETTER) Anatomical Region Laterality Modality Wrist, Body N/A Radiographic Roberta ging Narrative 04/24/2024 12:52 PM MONUMENT SETTER Patient Name: David Wei Date of : [...] by the International Society of Clinical Densitometry. [id number] Daquan George MD IMG DXA PROCEDURES Final Result * (ABNORMAL) Lipid panel (03/08/2023 11:55 AM MONUMENT SETTER) Cholesterol 193 30 - 199 mg/dL [facility] Comment: Interpretive Data Ages < [...] on 2017. Triglycerides 250(H) <=149 mg/dL [facility] Comment: Interpretive [...] on 2017. HDL 36(L) >=40 mg/dL [facility] Comment: Interpretive Data Ages < [...] on 2017. LDL, calculated 107 <=129 mg/dL [facility] Comment: Interpretive [...] revised on 2017. Non-HDL Cholesterol 157 mg/dL [facility] Comment: Interpretive [...] last revised on 2017. Chol/HDL ratio 5 [facility] Blood 03/08/2023 11:5 5 AM MONUMENT SETTER 03/08/2023 3:48 PM MONUMENT SETTER us Kraig Ching MD LAB BLOOD ORDERABLES Final Re sult [facility] One [facility] [place] [address] * (ABNORMAL) Albumin Creatinine Ratio, Urine (01/01/2023 10:40 AM CDT) Albumin Ur 227.3 mg/L [facility] Comment: Interpretive Data No reference range established. Current interpretive data was last revised 2018. Creatinine Ur 66.5 mg/dL [facility] Comment: Interpretive Data No reference range established. Current interpretive data was last revised 2018. Albumin Creatinine Ratio, Ur 342(H) 1 - 29 mg/g [facility] Urine 01/01/2023 10:4 0 AM CDT 01/01/2023 10:45 AM CDT Kraig Ching MD LAB URINE ORDERABLES Final Re sult [facility] One [facility] Department [place] [address] * DIABETES EYE EXAM (06/29/2018) Diabetic Eye Exam Normal Historical Provider HEALTH MAINTENANCE Final Result from Last 3 Months or Most Recently Relevant to Health Maintenance Insurance [facility] Address: [facility] [id number] [place] [address] [facility] MED[facility]ARE [employer] MEDICARE AETNA MEDICARE Advance Directives For more information, please contact: [phone] * Full Code (Latest Code Status on File) Date Activated Date Inactivated Comments 12/16/2017 2:44 PM 12/16/2017 7:18 PM Care Teams Atmospheric Chemist Relationship Specialty Start Date End Date Kraig Ching MD [address] [facility] [address] [place] [address] PCP - General 07/10/16 Gautam Cope MD [address] [facility] [address] [place] [address] Medical Oncologist/Waiter/Waitress Tourist Class Medical Oncology 08/18/18 Tramaine Roe MD [address] [facility] [address] [place] [address] Referring Physician Urology 08/18/18 Sukhwinder Uribe MD [address] [facility] [address] [place] [address] Consulting Physician Urology 08/18/18 Shay Guillermo MD [address] [facility] [address] [place] [address] Referring Physician Urology 08/18/18 Marsha Landis, RN Registered Nurse 11/17/18
--- OUTSIDE RECORDS SUMMARY | 2024-07-20 21:39 | XMS_ITS ---
Author Organization [facility] Address [address] [place] [address] Care Team Providers Care Educational Diagnostician Name Role Phone Kraig Ching MD Primary Care Provider [phone] Gautam Cope MD Unavailable Tramaine Roe MD Unavailable [phone] Sukhwinder Uribe MD Unavailable [phone] Shay Guillermo MD Unavailable [phone] Marsha Landis RN Unavailable Unavailab Active Problems Problem Noted Date Diagnosed Date Statin myopathy 06/08/2024 Essential hypertension 05/30/2024 Type 2 diabetes mellitus wit h stage 3b chronic kidney disease, with long-term current use of insulin 05/30/2024 Assessment & Plan (06/08/2024 4:46 AM VEHICLE UPHOLSTERER): Continue current regimen.Limit nephrotoxins.Reviewed creatinine. Avoid NSAIDS. [...] 03/08/2023 Assessment & Plan (06/08/2024 4:46 AM VEHICLE UPHOLSTERER): Hypertension is controlled. Continue current regimen. Assessment & Plan (10/05/2023 12:54 PM CDT): Hypertension is controlled. Decrease carvedilol to 12.5 mg. Assessment & Plan (03/08/2023 7:11 AM VEHICLE UPHOLSTERER): Hypertension is controlled. Continue current regimen. 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 Avoid NSAIDS. Assessment & Plan (10/05/2023 5:50 AM CDT): Continue current regimen.Limit nephrotoxins.Reviewed creatinine. Avoid NSAIDS. Assessment & Plan (03/08/2023 7:12 AM VEHICLE UPHOLSTERER): Continue current regimen.Limit nephrotoxins.Reviewed creatinine. Avoid NSAIDS. CKD (chronic kidney disease) 03/08/2022 Assessment & Plan (06/08/2024 4:45 AM VEHICLE UPHOLSTERER): Limit nephrotoxins. Monitor creatinine. Avoid NSAIDS.Follow with Nephrology. 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 chronic kidney disease 2021 Gastroesophageal reflux disease 04/08/2021 Assessment & Plan (03/08/2023 11:17 AM VEHICLE UPHOLSTERER): Reviewed dietary modifications. Continue PPI. Assessment & Plan (08/18/2022 6:36 AM CDT): Reviewed dietary modifications. Continue PPI. Assessment & Plan (02/12/2022 6:03 AM CDT): Reviewed dietary modifications. Continue PPI. Assessment & Plan (04/08/2021 5:55 AM VEHICLE UPHOLSTERER): Reviewed dietary modifications. Continue PPI. 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 Continue home PT exercises. Advised using a walker. Assessment & Plan (08/18/2022 11:47 AM CDT): Continue oxycodone. Continue home PT exercises. Advised using a walker. Assessment & Plan (02/12/2022 11:41 AM CDT): Continue oxycodone. Continue home PT exercises. A prescription for a walker. Assessment & Plan (04/08/2021 5:55 AM VEHICLE UPHOLSTERER): Continue oxycodone. Continue home PT exercises. Continue walker. Assessment & Plan (12/26/2020 10:48 AM CDT): Continue oxycodone. Script for walker. Assessment & Plan (09/26/2020 11:29 AM CDT): Continue ROM exercises and follow with Pain Management. Refill oxycodone as needed. Prostate cancer 09/06/2018 Assessment & Plan (06/08/2024 4:46 AM VEHICLE UPHOLSTERER): Follow with Oncology. Continue Zytiga. Assessment & [...] 01/25/2018 Assessment & Plan (03/07/2018 6:54 AM VEHICLE UPHOLSTERER): Hypertension is controlled. Continue current regimen. CHF [...] creatinine. Assessment & Plan (04/08/2021 5:54 AM VEHICLE UPHOLSTERER): Hypertension is controlled. Continue current regimen.Limit nephrotoxins. [...] NSAIDS. Assessment & Plan (03/07/2018 6:55 AM VEHICLE UPHOLSTERER): Hypertension is controlled. Continue current regimen. Limit nephrotoxins. Monitor creatinine. Avoid NSAIDS. Assessment & Plan (11/25/2017 7:09 AM CDT): Limit nephrotoxins. Monitor creatinine. Avoid NSAIDS. Duodenal ulcer 11/25/2017 Assessment & Plan (11/25/2017 10:16 AM CDT): Reviewed GI note . Continue pantoprazole. Avoid NSAIDS. Refer for EGD. PAF (paroxysmal atrial fibrillation) 10/22/2017 Assessment & Plan (03/07/2018 6:54 AM VEHICLE UPHOLSTERER): Continue rate control. Continue anticoagualtion. Anticipate starting [...] NSAIDS. Assessment & Plan (03/07/2018 6:55 AM VEHICLE UPHOLSTERER): Limit nephrotoxins. Monitor creatinine. Avoid NSAIDS. Assessment [...] diet. Assessment & Plan (04/08/2021 10:17 AM VEHICLE UPHOLSTERER): Reviewed HgBA1C elevated at 10.6 on 04/01/21. [...] therapy. Assessment & Plan (03/07/2018 6:57 AM VEHICLE UPHOLSTERER): Continue pravastatin. He had myalgias on other [...] diet. Assessment & Plan (03/02/2017 6:53 AM VEHICLE UPHOLSTERER): Hypertension is controlled. Continue current regimen. Reviewed low sodium diet. Assessment & Plan (01/15/2017 6:44 AM CDT): Reviewed proper diet. Continue statin therapy. Hyperlipidemia 01/12/2012 Assessment & Plan (06/08/2024 4:46 AM VEHICLE UPHOLSTERER): Continue pravastatin. Order lipid panel at next [...] 05/28/2023 Assessment & Plan (03/08/2023 11:40 AM VEHICLE UPHOLSTERER): Agree with cataract surgery. He has 1st [...] 08/30/2017 Assessment & Plan (03/02/2017 10:48 AM VEHICLE UPHOLSTERER): Mood is improved. Monitor off medication. Impotence [...] 200. Assessment & Plan (03/07/2018 6:56 AM VEHICLE UPHOLSTERER): Continue current regimen. Advised annual eye exam.Limit nephrotoxins. Monitor creatinine. Avoid NSAIDS. Assessment & Plan (11/25/2017 10:16 AM CDT): Continue current regimen and add Januvia.Advised annual eye exam. Limit nephrotoxins. Monitor creatinine. Avoid NSAIDS. Assessment & Plan (01/15/2017 6:44 AM CDT): Continue current regimen. Advised annual eye exam. Reviewed proper diet. Continue statin therapy.
== END 2024-07-20 20:20 | disposition left against medical advice (07) ==
PROVIDERS: PCP Internal Medicine
DX: R22.31 Localized swelling, mass and lump, right upper limb (principal)
CPT/HCPCS: 99199

== ENCOUNTER 2024-07-21 06:30 | Observation (INO) | payer MEDICARE, SELFPAY ==
[2024-07-21] VITALS (19 sets, daily range): BP systolic 133–189; BP diastolic 53–95; PULSE 79–107; RESP 16–30; TEMP 36.4–36.9; O2SAT 92–97; BMI 27.5
--- NOTE | ~2024-07-21 | XR_ITS ---
Right Hand Technique: PA, oblique, and lateral views were obtained. Clinical History: Cellulitis Findings: No acute fracture or dislocation is seen. Osseous alignment is anatomic. Joint spaces are p reserved. Soft tissues are unremarkable. Impression: Unremarkable right hand. Reviewed, dictated and finalized at location . Impression: Unremarkable right hand.
--- NOTE | ~2024-07-21 | XR_ITS ---
XR chest 1V portable Ordering provider: Brett Foley MD History: 83 years Male with . shortness of breath . Comparison: July 01, 2024 FINDINGS: MEDIASTINUM: The cardiac silhouette is moderately enlarged. Congestive harvey. LUNGS: No infiltrates, effusions or pneumothorax. Asymmetry in aeration of both lungs is most likely technical. OTHER: No free air under the diaphragm. IMPRESSION: No acute cardiopulmonary pathology. Reviewed, dictated and finalized at location A.
--- OUTSIDE RECORDS SUMMARY | 2024-07-21 06:32 | XMS_ITS | Encounter Summary ---
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 Gender Identity Not on file Sexual Orientation Not on file documented as of this encounter Functional Status documented as of this encounter Plan of Treatment Scheduled Orders Name Type Priority Associated Diagnoses Orde r Schedule CARDIOLOGY DOCUMENT SCAN Cardiac Services Ordered: 03/21/2023 documented as of this encounter Visit Diagnoses Not on filedocumented in this encounter Care Teams Histology Supervisor Relationship Specialty Start Date End Date Kraig Ching MD [address] [facility] [address] [place] [address] PCP - General 07/10/16 Gautam Cope MD [address] [facility] [address] [place] [address] Medical Oncologist/Sales Communications Manager Medical Oncology 08/18/18 Tramaine Roe MD [address] [facility] [address] [place] [address] Referring Physician Urology 08/18/18 Sukhwinder Uribe MD [address] [facility] [address] [place] [address] Consulting Physician Urology 08/18/18 Shay Guillermo MD [address] [facility] [address] [place] [address] Referring Physician Urology 08/18/18 Marsha Landis RN Registered Nurse 11/17/18 Clarissa Luna RN [address] [place] [address] [address] [place] [address] Wearing Apparel Presser 04/04/24 04/26/24 documented as of this encounter
--- OUTSIDE RECORDS SUMMARY | 2024-07-21 06:32 | XMS_ITS | Encounter Summary ---
Author Organization [facility] Address [address] [place] [address] Phone Care Team Providers Care Homeland Security Program Specialist Name Role Phone Kraig Ching MD Primary Care Provider [phone] Gautam Cope MD Unavailable Tramaine Roe MD Unavailable [phone] Sukhwinder Uribe MD Unavailable [phone] Shay Guillermo MD Unavailable [phone] Marsha Landis RN Unavailable Unavailab Ilene Kaur RN Unavailable [phone] Clarissa Luna RN Unavailable Encounter Details Date Type Department Care Team (Late st Contact Info) Description 12/06/2018 Telephone [facility] Oncology [address] [facility] Advanced Medicine 7th [place] [address] Salena Bryan NP [address] [place] [address] Social History Tobacco Use Types Packs/Day Years [...] on file 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 Gender Identity Not on file Sexual Orientation Not on file documented as of this encounter Plan of Treatment Not on file documented as of this encounter Visit Diagnoses Not on filedocumented in this encounter Care Teams Homeland Security Program Specialist Relationship Specialty Start Date End Date Kraig Ching MD [address] [place] [address] PCP - General 07/10/16 Gautam Cope MD [address] [place] [address] Medical Oncologist/Check Services Clerk Medical Oncology 08/18/18 Tramaine Roe MD [address] [place] [address] Referring Physician Urology 08/18/18 Sukhwinder Uribe MD [address] [place] [address] Consulting Physician Urology 08/18/18 Shay Guillermo MD [address] [place] [address] Referring Physician Urology 08/18/18 Marsha Landis, RN Registered Nurse 11/17/18 Ilene Fragoso RN [address] [place] [address] Recovery Coordinator 12/23/18 11/01/19 Clarissa Luna RN [address] [facility] [address] [place] [address] Recovery Coordinator 04/04/24 04/26/24 documented as of this encounter
--- OUTSIDE RECORDS SUMMARY | 2024-07-21 06:32 | XMS_ITS | Clinical Summary ---
Author Organization [facility] Address [address] [place] [address] Care Team Providers Care Tosser Name Role Phone Unavailable Primary Care Provider [...]
--- OUTSIDE RECORDS SUMMARY | 2024-07-21 06:32 | XMS_ITS | Encounter Summary ---
Author Organization [facility] Address [address] [place] [address] Phone Care Team Providers Care Steamtable Worker Name Role Phone Kraig Ching MD Primary Care Provider Gautam Cope MD Unavailable Tramaine Roe MD Unavailable [phone] Sukhwinder Uribe MD Unavailable [phone] Shay Guillermo MD Unavailable [phone] Marsha Landis RN Unavailable Unavailab Clarissa Harry RN Unavailable [phone] Encounter Details Date Type Department Care Team (Late st Contact Info) Description 12/09/2021 Telephone [facility] Oncology [address] [facility] Advanced Medicine 7th [place] [address] [place] [address] Muna Saleem RN Social History [...] on file 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 Gender Identity Not on file Sexual Orientation Not on file documented as of this encounter Functional Status documented as of this encounter Plan of Treatment Not on file documented as of this encounter Visit Diagnoses Not on filedocumented in this encounter Care Teams Steamtable Worker Relationship Specialty Start Date End Date Kraig Ching MD [address] [place] [address] PCP - General 07/10/16 Gautam Cope MD [address] [place] [address] Medical Oncologist/Transportation Security Screener Medical Oncology 08/18/18 Tramaine oRe MD [address] [place] [address] Referring Physician Urology 08/18/18 Sukhwinder Uribe MD [address] [place] [address] Consulting Physician Urology 08/18/18 Shay Guillermo MD [address] [place] [address] Referring Physician Urology 08/18/18 Marsha Landis, RN Registered Nurse 11/17/18 Clarissa Luna RN [address] [place] [address] [address] [place] [address] Rubber Molder 04/04/24 04/26/24 documented as of this encounter
--- OUTSIDE RECORDS SUMMARY | 2024-07-21 06:32 | XMS_ITS | Encounter Summary ---
Author Organization [facility] Address [address] [place] [address] Care Team Providers Care Planogrammer Name Role Phone Kraig Ching MD Primary Care Provider [phone] Gautam Cope MD Unavailable Tramaine Roe MD Unavailable [phone] Sukhwinder Uribe MD Unavailable [phone] Shay Guillermo MD Unavailable [phone] Marsha Landis RN Unavailable Unavailab le Encounter Details Date Type Department Care Team (Latest Contact Info) Description 07/19/2024 7:45 PM CDT - 07/19/2024 11:59 PM CDT Hospital Encounter [facility] [address] [place] [address] Urinary frequency Discharge Disposition: Discharge to home or self care Social History Tobacco Use Types Packs/Day Years Used Date Smoking Tobacco: Former Cigarettes 0.3 52 1 958 - 2009 Passive Smoke Exposure: Past Smokeless Tobacco: Never Comments:Smoking History Pac ks/day: 10 Cigarettes Alcohol Use Standard Drinks/Week Comments Yes 0 (1 standard drink = 0.6 oz pur e alcohol) Occasional glass of wine. [facility] Utilities Answer Date Recorded In the past 12 months has [employer], gas, oil, or water company threatened to [...] often do you attend chur ch or restorationist services? Never 04/04/2024 Do you belong to [...] any time in the past [address] [place], were you homeless or living in a detention (including now)? No 04/04/2024 Personal Safety Answer Date Recorded Have you ever been in or are you currently in a harmful physical or emotional relationship or is someone making you feel afraid or unsafe? 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 - Ensure [facility] has appropriate referral and orders to establish care with patient. - Follow up with patient to ensure initial visit was completed by [facility] and that a [facility] plan has been started. [facility] General Goal - Patient schedules and keeps appointments with all recommended providers O Care Management Improving( 1:22 PM SERVICE EMPLOYEE) No Clarissa Luna RN Note: Problem: Potential [...] frequency documented in this encounter Care Teams Planogrammer Relationship Specialty Start Date End Date Kraig Ching MD [address] [place], [place] [id number] PCP - General 07/10/16 Gautam Cope MD [address] [place] [address] Medical Oncologist/Columnist/Commentator Medical Oncology 08/18/18 Tramaine Roe MD [address] [facility] [address] [place] [address] Referring Physician Urology 08/18/18 Sukhwinder Uribe MD [address] [facility] [address] [place] [address] Consulting Physician Urology 08/18/18 Shay Guillermo MD [address] [facility] [address] [place] [address] Referring Physician Urology 08/18/18 Marsha Landis, RN Registered Nurse 11/17/18 documented as of this encounter
--- OUTSIDE RECORDS SUMMARY | 2024-07-21 06:32 | XMS_ITS | Clinical Summary ---
Author Organization [facility] Address [address] [place] [address] Care Team Providers Care Dining Services Director Name Role Phone Kraig Ching MD Primary Care Provider [phone] Gautam Cope MD Unavailable Tramaine Roe MD Unavailable [phone] Sukhwinder Uribe MD Unavailable [phone] Shay Guillermo MD Unavailable [phone] Marsha Landis RN Unavailable Unavailab le Allergies [...] 90 tablet 1 01/03/20 24 025 Discontinued LANTUS 100 unit/mL (3 mL) pen for injection ADMINISTER 28 UNITS UNDER THE SKIN DAILY 6 mL 1 06/02/19 25 025 Discontinued(Re order) Active Problems Problem Noted Date Diagnosed Date Statin myopathy 06/08/2024 Essential hypertension 05/30/2024 Type 2 diabetes mellitus wit h stage 3b chronic kidney disease, with long-term current use of insulin 05/30/2024 Assessment & Plan (06/08/2024 4:46 AM HYDRAULIC CHAIR ASSEMBLER): Continue current regimen.Limit nephrotoxins.Reviewed creatinine. Avoid NSAIDS. [...] 03/08/2023 Assessment & Plan (06/08/2024 4:46 AM HYDRAULIC CHAIR ASSEMBLER): Hypertension is controlled. Continue current regimen. Assessment & Plan (10/05/2023 12:54 PM CDT): Hypertension is controlled. Decrease carvedilol to 12.5 mg. Assessment & Plan (03/08/2023 7:11 AM HYDRAULIC CHAIR ASSEMBLER): Hypertension is controlled. Continue current regimen. 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 Avoid NSAIDS. Assessment & Plan (10/05/2023 5:50 AM CDT): Continue current regimen.Limit nephrotoxins.Reviewed creatinine. Avoid NSAIDS. Assessment & Plan (03/08/2023 7:12 AM HYDRAULIC CHAIR ASSEMBLER): Continue current regimen.Limit nephrotoxins.Reviewed creatinine. Avoid NSAIDS. CKD (chronic kidney disease) 03/08/2022 Assessment & Plan (06/08/2024 4:45 AM HYDRAULIC CHAIR ASSEMBLER): Limit nephrotoxins. Monitor creatinine. Avoid NSAIDS.Follow with Nephrology. 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 chronic kidney disease 2021 Gastroesophageal reflux disease 04/08/2021 Assessment & Plan (03/08/2023 11:17 AM HYDRAULIC CHAIR ASSEMBLER): Reviewed dietary modifications. Continue PPI. Assessment & Plan (08/18/2022 6:36 AM CDT): Reviewed dietary modifications. Continue PPI. Assessment & Plan (02/12/2022 6:03 AM CDT): Reviewed dietary modifications. Continue PPI. Assessment & Plan (04/08/2021 5:55 AM HYDRAULIC CHAIR ASSEMBLER): Reviewed dietary modifications. Continue PPI. 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 Continue home PT exercises. Advised using a walker. Assessment & Plan (08/18/2022 11:47 AM CDT): Continue oxycodone. Continue home PT exercises. Advised using a walker. Assessment & Plan (02/12/2022 11:41 AM CDT): Continue oxycodone. Continue home PT exercises. A prescription for a walker. Assessment & Plan (04/08/2021 5:55 AM HYDRAULIC CHAIR ASSEMBLER): Continue oxycodone. Continue home PT exercises. Continue walker. Assessment & Plan (12/26/2020 10:48 AM CDT): Continue oxycodone. Script for walker. Assessment & Plan (09/26/2020 11:29 AM CDT): Continue ROM exercises and follow with Pain Management. Refill oxycodone as needed. Prostate cancer 09/06/2018 Assessment & Plan (06/08/2024 4:46 AM HYDRAULIC CHAIR ASSEMBLER): Follow with Oncology. Continue Zytiga. Assessment & [...] 01/25/2018 Assessment & Plan (03/07/2018 6:54 AM HYDRAULIC CHAIR ASSEMBLER): Hypertension is controlled. Continue current regimen. CHF [...] creatinine. Assessment & Plan (04/08/2021 5:54 AM HYDRAULIC CHAIR ASSEMBLER): Hypertension is controlled. Continue current regimen.Limit nephrotoxins. [...] NSAIDS. Assessment & Plan (03/07/2018 6:55 AM HYDRAULIC CHAIR ASSEMBLER): Hypertension is controlled. Continue current regimen. Limit nephrotoxins. Monitor creatinine. Avoid NSAIDS. Assessment & Plan (11/25/2017 7:09 AM CDT): Limit nephrotoxins. Monitor creatinine. Avoid NSAIDS. Duodenal ulcer 11/25/2017 Assessment & Plan (11/25/2017 10:16 AM CDT): Reviewed GI note . Continue pantoprazole. Avoid NSAIDS. Refer for EGD. PAF (paroxysmal atrial fibrillation) 10/22/2017 Assessment & Plan (03/07/2018 6:54 AM HYDRAULIC CHAIR ASSEMBLER): Continue rate control. Continue anticoagualtion. Anticipate starting [...] NSAIDS. Assessment & Plan (03/07/2018 6:55 AM HYDRAULIC CHAIR ASSEMBLER): Limit nephrotoxins. Monitor creatinine. Avoid NSAIDS. Assessment [...] diet. Assessment & Plan (04/08/2021 10:17 AM HYDRAULIC CHAIR ASSEMBLER): Reviewed HgBA1C elevated at 10.6 on 04/01/21. [...] therapy. Assessment & Plan (03/07/2018 6:57 AM HYDRAULIC CHAIR ASSEMBLER): Continue pravastatin. He had myalgias on other [...] diet. Assessment & Plan (03/02/2017 6:53 AM HYDRAULIC CHAIR ASSEMBLER): Hypertension is controlled. Continue current regimen. Reviewed low sodium diet. Assessment & Plan (01/15/2017 6:44 AM CDT): Reviewed proper diet. Continue statin therapy. Hyperlipidemia 01/12/2012 Assessment & Plan (06/08/2024 4:46 AM HYDRAULIC CHAIR ASSEMBLER): Continue pravastatin. Order lipid panel at next [...] 05/28/2023 Assessment & Plan (03/08/2023 11:40 AM HYDRAULIC CHAIR ASSEMBLER): Agree with cataract surgery. He has 1st [...] 08/30/2017 Assessment & Plan (03/02/2017 10:48 AM HYDRAULIC CHAIR ASSEMBLER): Mood is improved. Monitor off medication. Impotence [...] 200. Assessment & Plan (03/07/2018 6:56 AM HYDRAULIC CHAIR ASSEMBLER): Continue current regimen. Advised annual eye exam.Limit [...] - 07/19/2024 11:59 PM CDT Hospital Encounter [address] [address] Urinary frequency Discharge Disposition: Discharge to home or self care 07/19/2024 2:00 PM CDT Office Visit [facility] Medical Group [facility] Care at [address] [address] Clau Childers PA Urinary frequency (Primary Dx); Leukocytosis, unspecified type 07/18/2024 1:45 PM CDT Infusion [facility] - Infusion [address] [facility] Floor 6 [place] [address] Prostate cancer (HCC) (Primary Dx) 07/18/2024 1:00 PM CDT Office Visit [facility] Oncology [address] [facility] Floor 5 [place] [address] Gautam Cope MD Prostate cancer (HCC) (Primary Dx) 07/18/2024 12:00 PM CDT Lab [facility] - Lab Collection [address] [facility] Floor 5 [place] [address] Prostate cancer (HCC) 07/18/2024 Patient Self-Triage [facility] [address] [place] [address] Mychart, Generic Provider 07/01/2024 Orders Only [facility] Health Information Management [address] [place] [id number] Scanning, Provider 06/14/2024 6:15 PM HYDRAULIC CHAIR ASSEMBLER Lab [facility] [address] [place] [phone] GABRIELA (acute kidney injury) 06/14/2024 3:00 PM HYDRAULIC CHAIR ASSEMBLER Office Visit [facility] Nephrology [address] [place] [address] 5th [place] [address] [place] [address] Lin Guerrero MD Chronic kidney disease, stage 3b (HCC) (Primary Dx); GABRIELA (acute kidney injury); Hypertension, essential; Secondary hyperparathyroidism of renal origin 06/08/2024 12:00 PM HYDRAULIC CHAIR ASSEMBLER Lab [facility] Medicine [place] ([facility]) [address] [place] [phone] 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 chronic kidney disease (HCC); Hypertension, essential; Secondary hyperparathyroidism of renal origin; Stage 3 chronic kidney disease, unspecified whether stage 3a or 3b CKD (HCC); Primary hypertension; Vitamin D deficiency; Type 2 diabetes mellitus with stage 3a chronic kidney disease, with long-term current use of insulin (HCC); Fatigue, unspecified type; GABRIELA (acute kidney injury) 06/08/2024 9:45 AM HYDRAULIC CHAIR ASSEMBLER Office Visit [address] [phone] Kraig Ching MD Hypertension, essential (Primary Dx); Prostate cancer (HCC); Type 2 diabetes mellitus with stage 3b chronic kidney disease, with long-term current use of insulin (HCC); Stage 3b chronic kidney disease (HCC); Hyperlipidemia, unspecified hyperlipidemia type 05/24/2024 Orders Only [facility] Nephrology [address] [place] [address] [place] [address] Lin Guerrero MD 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 chronic kidney disease (HCC) (Primary Dx); Hypertension, essential; Secondary hyperparathyroidism of renal origin; Stage 3 chronic kidney disease, unspecified whether stage 3a or 3b CKD (HCC); Primary hypertension; Vitamin D deficiency; Type 2 diabetes mellitus with stage 3a chronic kidney disease, with long-term current use of insulin (HCC); Fatigue, unspecified type; GARBIELA (acute kidney injury) 05/02/[address] [address] Kraig Ching MD Medical Question/Miscellaneous 04/28/[address] [place] [address] Stef Roman NP 04/28/2024 Orders Only [address] [place] [address] Stef Roman NP 04/25/2024 11:45 AM HYDRAULIC CHAIR ASSEMBLER Infusion [facility] - Infusion [address] [place] [address] Floor 5 [place] [address] Prostate cancer (HCC) (Primary Dx) 04/25/2024 10:45 AM HYDRAULIC CHAIR ASSEMBLER Office Visit [facility] Oncology [facility] [facility] Floor 5 [place] [address] Gautam Cope MD Prostate cancer (HCC) 04/25/2024 9:45 AM HYDRAULIC CHAIR ASSEMBLER Lab [facility] - Lab Collection [address] [facility] Floor 5 [place] [address] Prostate cancer (HCC) 04/24/2024 12:20 PM HYDRAULIC CHAIR ASSEMBLER Office Visit [facility] [address] [facility] 5th [place] [address] [place] [phone] Daquan George MD Age-related osteoporosis without current pathological fracture (Primary Dx); Alkaline phosphatase elevation; Thyroid condition 04/24/2024 11:50 AM HYDRAULIC CHAIR ASSEMBLER Clinical Support [facility] [address] [facility] 5th [place] [address] [place] [phone] Age-related osteoporosis without current pathological fracture (Primary Dx) 04/24/[address] 5th [place] [address] [place] [address] Daquan George MD from Last 3 Months [...] 01/17/2019 Influenza, Unspecified 01/17/2019(Deferred: Daisy ent Refused) [facility] SARS-CoV-2 Vaccination 06/14/2020, 06/14/2020 Pfizer SARS-CoV-2 [...] pur e alcohol) Occasional glass of wine. [facility] Utilities Answer Date Recorded In the past 12 months has [employer] electric, gas, oil, or water company threatened [...] any clubs o r organizations such as mandaeism groups, unions, fraternal or athletic groups, or [...] any time in the past 12 m [facility], were you homeless or living in a group home (including now)? No 04/04/2024 Personal Safety Answer Date Recorded Have you ever been in or are you currently in a harmful physical or emotional relationship or is someone making you feel afraid or unsafe? Denies 06/09/2023 Sex and Gender Information Value Date Recorded Sex Assigned at Not on file Legal Sex Male 4:46 PM HYDRAULIC CHAIR ASSEMBLER Gender Identity Not on file [...] cm (5' 9 ) 06/14/2024 2:58 PM HYDRAULIC CHAIR ASSEMBLER Body Mass Index 29.98 06/14/2024 2:58 PM HYDRAULIC CHAIR ASSEMBLER Plan of Treatment Health Maintenance Due Date [...] General Goal - Patient establishes care with [facility] ACO Care Management On track(2023 1:22 PM HYDRAULIC CHAIR ASSEMBLER) No Clarissa Luna RN Note: Problem: Lack of [facility] communication Interventions: - Provide coordination between [facility] company and patient. - Ensure [facility] has appropriate referral and orders to establish care with patient. - Follow up with patient to ensure initial visit was completed by [facility] and that a [facility] plan has been started. ZAK General Goal - Patient schedules and keeps appointments with all recommended providers ACO Care Management Improving( 1:22 PM HYDRAULIC CHAIR ASSEMBLER) No Clarissa Luna RN Note: Problem: Potential [...] medication regimen. Medical Devices Implanted Type Area Cut Off Tender Glass Device Identifier Shelf Expiration Date Model / Serial / Lot [employer] Lens Iol Cna0t0.195 Clareon Uva Autonom Cna0t0.195 - [id number] - [id number] Implanted:Qty: 1 on 06/09/2023 by Higinio Connolly MD at [facility] Lens Right: Eye [employer] [id number] 10/27/2025 CNA0T0.19 5 / [id number] / [employer] Lens Iol Cna0t0.200 [employer] Autonom Cna0t0.200 - [id number] - [id number] Implanted:Qty: 1 on 05/19/2023 by Higinio Connolly MD at [facility] Left: Eye [employer] [id number] 10/06/2025 CNA0T0.20 0 / [id number] / Procedures Procedure Name Priority Date/Time [...] AM CDT EGFR Routine 06/14/2024 3:48 PM HYDRAULIC CHAIR ASSEMBLER GABRIELA (acute kidney injury) RENAL FUNCTION PANEL Routine 06/14/2024 3:48 PM HYDRAULIC CHAIR ASSEMBLER GABRIELA (acute kidney injury) URINALYSIS AND REFLEX TO MICROSCOPIC Routine 06/08/2024 10:47 AM HYDRAULIC CHAIR ASSEMBLER 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 chronic kidney disease (HCC) Hypertension, essential Secondary hyperparathyroidism of renal origin Stage 3 chronic kidney disease, unspecified whether stage 3a or 3b CKD (HCC) Primary hypertension Vitamin D deficiency Type 2 diabetes mellitus with stage 3a chronic kidney disease, with long-term current use of insulin (HCC) Fatigue, unspecified type GABRIELA (acute kidney injury) EGFR Routine 06/08/2024 10:44 AM HYDRAULIC CHAIR ASSEMBLER 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 chronic kidney disease (HCC) Hypertension, essential Secondary hyperparathyroidism of renal origin Stage 3 chronic kidney disease, unspecified whether stage 3a or 3b CKD (HCC) Primary hypertension Vitamin D deficiency Type 2 diabetes mellitus with stage 3a chronic kidney disease, with long-term current use of insulin (HCC) Fatigue, unspecified type GABRIELA (acute kidney injury) DIFFERENTIAL AUTO Routine 06/08/2024 10:44 AM HYDRAULIC CHAIR ASSEMBLER 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 chronic kidney disease [...] RENAL FUNCTION PANEL Routine 06/08/2024 10:44 AM HYDRAULIC CHAIR ASSEMBLER 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 chronic kidney disease [...] D 25 HYDROXY Routine 06/08/2024 10:44 AM HYDRAULIC CHAIR ASSEMBLER 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 chronic kidney disease [...] WITH AUTO DIFFERENTIAL Routine 06/08/2024 10:44 AM HYDRAULIC CHAIR ASSEMBLER 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 chronic kidney disease (HCC) Hypertension, essential Secondary hyperparathyroidism of renal origin Stage 3 chronic kidney disease, unspecified whether stage 3a or 3b CKD (HCC) Primary hypertension Vitamin D deficiency Type 2 diabetes mellitus with stage 3a chronic kidney disease, with long-term current use of insulin (HCC) Fatigue, unspecified type GABRIELA (acute kidney injury) PTH Routine 06/08/2024 10:44 AM HYDRAULIC CHAIR ASSEMBLER 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 chronic kidney disease [...] RATIO, URINE, RANDOM Routine 06/08/2024 10:44 AM HYDRAULIC CHAIR ASSEMBLER 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 chronic kidney disease (HCC) Hypertension, essential Secondary hyperparathyroidism of renal origin Stage 3 chronic kidney disease, unspecified whether stage 3a or 3b CKD (HCC) Primary hypertension Vitamin D deficiency Type 2 diabetes mellitus with stage 3a chronic kidney disease, with long-term current use of insulin (HCC) Fatigue, unspecified type GABRIELA (acute kidney injury) EGFR STAT 04/25/2024 9:45 AM HYDRAULIC CHAIR ASSEMBLER Prostate cancer (HCC) VITAMIN D 25 HYDROXY Routine 04/25/2024 9:45 AM HYDRAULIC CHAIR ASSEMBLER Prostate cancer (HCC) TOTAL TESTOSTERONE Routine 04/25/2024 9:45 AM HYDRAULIC CHAIR ASSEMBLER Prostate cancer (HCC) HEMOGLOBIN A1C Routine 04/25/2024 9:45 AM HYDRAULIC CHAIR ASSEMBLER Prostate cancer (HCC) VITAMIN B12 Routine 04/25/2024 9:45 AM HYDRAULIC CHAIR ASSEMBLER Prostate cancer (HCC) LACTATE DEHYDROGENASE Routine 04/25/2024 9:45 AM HYDRAULIC CHAIR ASSEMBLER Prostate cancer (HCC) COMPREHENSIVE METABOLIC PANEL STAT 04/25/2024 9:45 AM HYDRAULIC CHAIR ASSEMBLER Prostate cancer (HCC) PSA DIAGNOSTIC Routine 04/25/2024 9:45 AM HYDRAULIC CHAIR ASSEMBLER Prostate cancer (HCC) DIFFERENTIAL AUTO Routine 04/25/2024 9:40 AM HYDRAULIC CHAIR ASSEMBLER Prostate cancer (HCC) CBC WITH AUTO DIFFERENTIAL Routine 04/25/2024 9:40 AM HYDRAULIC CHAIR ASSEMBLER Prostate cancer (HCC) DEXA TBS AXIAL SKELETON BONE DENSITY 1 OR MORE SITES Schedule Routine, Read Routine (OP Routine) 04/24/2024 11:56 AM HYDRAULIC CHAIR ASSEMBLER Age-related osteoporosis without current pathological fracture LIPID PANEL Routine 03/08/2023 11:55 AM HYDRAULIC CHAIR ASSEMBLER Hyperlipidemia, unspecified hyperlipidemia type ALBUMIN CREATININE RATIO, [...] Large Ketones, ur, POC Negative Negative Specific [place], POC 1.015 1.003 - 1.030 Blood, ur, POC Hemolyzed, trace(A) Negative pH, ur, POC 6.0 5.0 - 8.0 Protein, ur, POC 30.(A) Negative Urobilinogen, urine, POC 0.2 0.2 - 1.0 mg/dL Nitrite, ur, POC Negative Negative Leukocytes, ur, POC Negative Negative Lot Number [id number] Urine 07/19/2024 2:16 PM CDT Clau ESQUIVEL POINT OF CARE TEST ORDER ALAN Final Result * (ABNORMAL) eGFR (07/18/2024 12:07 PM CDT) [facility] eGFR 23(L) >=60 mL/min/1. 73 m2 Comment: [...] LAB BLOOD ORDERABLES Final Resul t [facility] Department [place] [address] * (ABNORMAL) Differential, auto (07/18/2024 12:07 PM CDT) Pathologist [facility] Neutrophil abs 17.55(H) 1.50 - 6.50 K/cumm Comment:Testing performed by : [facility] Cancer [facility] Heme Lab, [address] [place] [phone] Lymphocyte abs 0.96 0.80 - 3.30 K/cumm [facility] Comment:Testing performed by : [facility] Heme [facility], [facility] [place] [address] Monocyte abs 1.48(H) 0.20 - 0.80 K/cumm [facility] Comment:Testing performed by : [facility] Heme [facility], [address] [place] [phone] Eosinophil abs 0.06 0.00 - 0.50 K/cumm [facility] Comment:Testing performed by : [facility]e [facility], [address] [place] [phone] Basophil abs 0.03 0.00 - 0.10 K/cumm [facility] Comment:Testing performed by : [facility]e [facility], [address] [place] [phone] Neutrophil pct 87.4 % [facility] Comment: Interpretive Data Percent cell count reference ranges are not reported, since discordance with absolute values may lead to misinterpretation of CBC data. Current Interpretive Data was last revised on 2017. Testing performed by: [facility], [address] [place] [phone] Lymphocyte pct 4.8 % [facility] Comment: Interpretive Data Percent cell count reference ranges are not reported, since discordance with absolute values may lead to misinterpretation of CBC data. Current Interpretive Data was last revised on 2017. Testing performed by: [facility], [address] [place] [phone] Monocyte pct 7.4 % [facility] Comment: Interpretive Data Percent cell count reference ranges are not reported, since discordance with absolute values may lead to misinterpretation of CBC data. Current Interpretive Data was last revised on 2017. Testing performed by: [facility], [address] [place] [phone] Eosinophil pct 0.3 % [facility] Comment: Interpretive Data Percent cell count reference ranges are not reported, since discordance with absolute values may lead to misinterpretation of CBC data. Current Interpretive Data was last revised on 2017. Testing performed by: [facility] Heme Lab, [address] [place] [phone] Basophil pct 0.2 % [facility] Comment: Interpretive Data Percent cell count reference ranges are not reported, since discordance with absolute values may lead to misinterpretation of CBC data. Current Interpretive Data was last revised on 2017. Testing performed by: [facility] Heme Lab, [address] [place] [address] Blood 07/18/2024 12:0 7 PM CDT 07/18/2024 12:22 PM CDT us Gautam Cope MD LAB BLOOD ORDERABLES Final Resul t [facility] Department [place] [address] * (ABNORMAL) CBC with auto differential (07/18/2024 12:07 PM CDT) WBC 20.09(H) 3.80 - 9.90 K/cumm Comment:Testing performed by : [facility] Heme Lab, [address] [place] [address] Hgb 12.1(L) 13.0 - 17.5 g/dL [facility] Comment:Testing performed by : [facility]e Lab, [address] [place] [address] Hct 38.2(L) 38.9 - 50.3 % [facility] Comment:Testing performed by : [facility] Heme Lab, [address] [place] [address] Plt 451(H) 150 - 400 K/cumm [facility] Comment:Testing performed by : [facility] Heme Lab, [address] [place] [address] MPV 7.7 6.8 - 10.4 fL [facility] Comment:Testing performed by : [facility] Heme Lab, [address] [place] [address] RBC 4.46 4.30 - 5.80 M/cumm [facility] Comment:Testing performed by : [facility] Heme Lab, [address] [place] [address] MCV 85.5 81.3 - 96.4 fL [facility] Comment:Testing performed by : [facility] Heme Lab, [address] [place] [address] MCH 27.1 27.1 - 33.[address] [facility] Comment:Testing performed by : [facility] Heme Lab, [address] [place] [phone] MCHC 31.7(L) 32.3 - 35.7 g/dL [facility] Comment:Testing performed by : [facility] Heme Lab, [address] [place] [phone] RDW CV 14.9 11.1 - 14.9 % [facility] Comment:Testing performed by : [facility] Heme Lab, [address] [place] [phone] NRBC abs 0.00 0.00 - 0.01 K/cumm [facility] Comment:Testing performed by : [facility] Heme Lab, [address] [place] [phone] Blood 07/18/2024 12:0 7 PM CDT 07/18/2024 12:22 PM CDT Gautam Cope MD LAB BLOOD ORDERABLES Final Resul t [facility] Department [place] [address] * PSA diagnostic (07/18/2024 12:07 PM CDT) [...] Resul t Performing Organization Address [facility] de Phone Number [facility] Department [place] [address] * Lactate dehydrogenase (LD) (07/18/2024 12:07 PM CDT) Lactate dehydrogenase (LDH) 216 100 - 250 Units/L Blood 07/18/2024 12:0 7 PM CDT 07/18/2024 12:25 PM CDT Gautam Cope MD LAB BLOOD ORDERABLES Final Resul t Performing Organization Address [facility] de Phone Number [place], [place] [address] * (ABNORMAL) Hemoglobin A1c (07/18/2024 12:07 PM CDT) [facility] Hgb A1C 8.0(H) 4.0 - 5.6 % Estimated Average Glucose 183 mg/dL [facility] Comment: The ADA recommends reporting an [...] Resul t Performing Organization Address [facility] Co de Phone Number [facility] [employer] [address] * (ABNORMAL) Comprehensive metabolic panel (07/18/2024 12:07 PM CDT) Pathologist [facility] Sodium 142 135 - 145 mmol/L Potassium, pl 4.6 3.3 - 4.9 mmol/L [facility] Chloride 106 97 - 110 mmol/L [facility] CO2 24 22 - 32 mmol/L [facility] Anion gap 12 2 - 15 mmol/L [facility] BUN 52(H) 6 - 25 mg/dL [facility] Creatinine 2.66(H) 0.80 - 1.30 mg/dL [facility] Glucose 164 70 - 199 mg/dL [facility] Comment: Interpretive Data Fasting glucose >/= [...] 2022. Calcium 9.0 8.5 - 10.3 mg/dL [facility] Bilirubin, total 0.5 0.1 - 1.2 mg/dL [facility] Protein, pl 6.7 6.5 - 8.5 g/dL [facility] Albumin 4.0 3.5 - 5.0 g/dL [facility] Alk phos 126 40 - 130 Units/L [facility] ALT 10 7 - 55 Units/L [facility] AST 13 10 - 50 Units/L [facility] Blood 07/18/2024 12:0 7 PM CDT 07/18/2024 12:25 PM CDT Gautam Cope MD LAB BLOOD ORDERABLES Final Resul t [facility] [place] [address] * SCAN - RADIOLOGY/IMAGING (07/01/2024 9:44 AM CDT) Anatomical Region Laterality Modality Other us Provider Scanning Final Result * (ABNORMAL) eGFR (06/14/2024 3:48 PM HYDRAULIC CHAIR ASSEMBLER) eGFR 26(L) >=60 mL/min/1. 73 m2 Comment: [...] last reviewed 2021. Blood 06/14/2024 3:48 PM HYDRAULIC CHAIR ASSEMBLER 06/14/2024 4:07 PM HYDRAULIC CHAIR ASSEMBLER us Lin Guerrero MD LAB BLOOD ORDERABLES Final Resul t [facility] Department [place] [address] * (ABNORMAL) Renal function panel (06/14/2024 3:48 PM HYDRAULIC CHAIR ASSEMBLER) Pathologist [facility] Sodium 143 135 - 145 mmol/L Potassium, pl 5.0(H) 3.3 - 4.9 mmol/L [facility] Chloride 105 97 - 110 mmol/L [facility] CO2 28 22 - 32 mmol/L [facility] Anion gap 10 2 - 15 mmol/L [facility] BUN 48(H) 6 - 25 mg/dL [facility] Creatinine 2.42(H) 0.80 - 1.30 mg/dL [facility] Glucose 152 70 - 199 mg/dL [facility] Comment: Interpretive Data Fasting glucose >/= [...] 2022. Calcium 8.7 8.5 - 10.3 mg/dL [facility] Phosphorus, pl 3.1 2.3 - 4.5 mg/dL [facility] Albumin 3.9 3.5 - 5.0 g/dL [facility] Blood 06/14/2024 3:48 PM HYDRAULIC CHAIR ASSEMBLER 06/14/2024 4:03 PM HYDRAULIC CHAIR ASSEMBLER us Lin Guerrero MD LAB BLOOD ORDERABLES Final Resul t [facility] Department [place] [address] * Urinalysis reflex to microscopic (06/08/2024 10:47 AM HYDRAULIC CHAIR ASSEMBLER) Color, ur Straw Yellow Clarity, ur Clear Clear [facility] Specific gravity, ur 1.012 1.003 - 1.030 [facility] pH, urine 6.0 [facility] Comment: Interpretive Data U rine pH is affected by diet, medications, systemic acid-base disturbances, and renal tubular function. pH may affect urinary stone formation. For example, urine pH below 6.0 may help reduce the tendency for calcium phosphate stones and pH greater than 6.0 may reduce the tendency for uric acid stone formation. Source: [facility] [employer] Current Interpretive Data was last revised on 2017 Protein, ur ql Trace Negative [facility] Glucose, ur ql Negative Negative [facility] Ketones, ur Negative Negative [facility] Bilirubin, ur Negative Negative [facility] Blood, ur Negative Negative [facility] Urobilinogen, ur <2.0 <2.0 mg/dL [facility] Nitrite, ur Negative Negative [facility] Leukocyte esterase, ur Negative Negative [facility] UA reflex comment Reflex conditions for microscopic UA not met. [facility] Urine 06/08/2024 10:4 7 AM HYDRAULIC CHAIR ASSEMBLER 06/08/2024 11:41 AM HYDRAULIC CHAIR ASSEMBLER Lin Guerrero MD LAB URINE ORDERABLES Final Resul t Performing Organization Address [facility] Co de Phone Number [facility] Department [place] [address] * (ABNORMAL) eGFR (06/08/2024 10:44 AM HYDRAULIC CHAIR ASSEMBLER) eGFR 22(L) >=60 mL/min/1. 73 m2 Comment: [...] of Race in Diagnosing Kidney Disease, JASN 1). The CKD-EPI equation should not be used for patients with unstable renal function and has not been validated in children and those over 70. Current interpretive data was last reviewed 2021. Blood 06/08/2024 10:4 4 AM HYDRAULIC CHAIR ASSEMBLER 06/08/2024 11:23 AM HYDRAULIC CHAIR ASSEMBLER Lin Guerrero MD LAB BLOOD ORDERABLES Final Resul t Performing Organization Address City/[facility]/ZIP Co de Phone Number [facility] Department [place] [address] * (ABNORMAL) Differential, auto (06/08/2024 10:44 AM HYDRAULIC CHAIR ASSEMBLER) Neutrophil abs 7.8(H) 1.5 - 6.5 K/cumm Imm gran abs 0.1 0.0 - 0.1 K/cumm [facility] Lymphocyte abs 1.9 0.8 - 3.3 K/cumm [facility] Monocyte abs 1.0(H) 0.2 - 0.8 K/cumm [facility] Eosinophil abs 0.1 0.0 - 0.5 K/cumm [facility] Basophil abs 0.0 0.0 - 0.1 K/cumm [facility] Neutrophil pct 71.1 % [facility] Comment: Interpretive Data Percent cell count reference ranges are not reported, since discordance with absolute values may lead to misinterpretation of CBC data. Current Interpretive Data was last revised on 2017. Imm gran pct 0.8 % [facility] Comment: Interpretive Data Percent cell count reference ranges are not reported, since discordance with absolute values may lead to misinterpretation of CBC data. Current Interpretive Data was last revised on 2017. Lymphocyte pct 17.1 % [facility] Comment: Interpretive Data Percent cell count reference ranges are not reported, since discordance with absolute values may lead to misinterpretation of CBC data. Current Interpretive Data was last revised on 2017. Monocyte pct 9.3 % [facility] Comment: Interpretive Data Percent cell count reference ranges are not reported, since discordance with absolute values may lead to misinterpretation of CBC data. Current Interpretive Data was last revised on 2017. Eosinophil pct 1.3 % [facility] Comment: Interpretive Data Percent cell count reference ranges are not reported, since discordance with absolute values may lead to misinterpretation of CBC data. Current Interpretive Data was last revised on 2017. Basophil pct 0.4 % [facility] Comment: Interpretive Data Percent cell count reference ranges are not reported, since discordance with absolute values may lead to misinterpretation of CBC data. Current Interpretive Data was last revised on 2017. Blood 06/08/2024 10:4 4 AM HYDRAULIC CHAIR ASSEMBLER 06/08/2024 11:23 AM HYDRAULIC CHAIR ASSEMBLER us Lin Guerrero MD LAB BLOOD ORDERABLES Final Resul t [facility] [place] [address] * (ABNORMAL) CBC with auto differential (06/08/2024 10:44 AM HYDRAULIC CHAIR ASSEMBLER) [facility] WBC 11.0(H) 3.8 - 9.9 K/cumm Hgb 12.0(L) 13.0 - 17.5 g/dL [facility] Hct 36.9(L) 38.9 - 50.3 % [facility] Plt 357 150 - 400 K/cumm [facility] MPV 9.8 9.1 - 12.3 fL [facility] RBC 4.27(L) 4.30 - 5.80 M/cumm [facility] MCV 86.4 81.3 - 96.4 fL [facility] MCH 28.1 27.1 - 33.3 pg [facility] MCHC 32.5 32.3 - 35.7 g/dL [facility] RDW CV 14.1 11.1 - 14.9 % [facility] RDW SD 44.2 35.7 - 48.1 fL [facility] NRBC abs 0.00 0.00 - 0.01 K/cumm [facility] Blood 06/08/2024 10:4 4 AM HYDRAULIC CHAIR ASSEMBLER 06/08/2024 11:23 AM HYDRAULIC CHAIR ASSEMBLER us Lin Guerrero MD LAB BLOOD ORDERABLES Final Resul t [facility] Department [place] [address] * (ABNORMAL) Protein / creatinine ratio, urine, random (06/08/2024 10:44 AM HYDRAULIC CHAIR ASSEMBLER) [facility] Protein, ur, quant 21.3 mg/dL Comment: Interpretive Data No reference range established. Current interpretive data was last revised 2018. Creatinine Ur 52.2 mg/dL [facility] Comment: Interpretive Data No reference range established. Current interpretive data was last revised 2018. Protein/creatinin e ratio 408.0(H) 0.0 - 180.0 mg/g CR [facility] Urine 06/08/2024 10:4 4 AM HYDRAULIC CHAIR ASSEMBLER 06/08/2024 11:23 AM HYDRAULIC CHAIR ASSEMBLER us Lin Guerrero MD LAB URINE ORDERABLES Final Resul t Performing Organization Address [facility] de Phone Number [facility] [employer] [place] [address] * Vitamin D 25 hydroxy (06/08/2024 10:44 AM HYDRAULIC CHAIR ASSEMBLER) Pathologist [facility] Vitamin D 25-OH 42 30 - 80 ng/mL Blood 06/08/2024 10:4 4 AM HYDRAULIC CHAIR ASSEMBLER 06/08/2024 11:23 AM HYDRAULIC CHAIR ASSEMBLER us Lin Guerrero MD LAB BLOOD ORDERABLES Final Resul t Performing Organization Address [facility] de Phone Number [facility] Department [place] [employer] [place] [place] [address] * (ABNORMAL) PTH (06/08/2024 10:44 AM HYDRAULIC CHAIR ASSEMBLER) Pathologist [facility] PTH 78(H) 15 - 65 pg/mL Blood 06/08/2024 10:4 4 AM HYDRAULIC CHAIR ASSEMBLER 06/08/2024 11:23 AM HYDRAULIC CHAIR ASSEMBLER us Lin Guerrero MD LAB BLOOD ORDERABLES Final Resul t Performing Organization Address [facility] de Phone Number [facility] [place] [address] * (ABNORMAL) Renal function panel (06/08/2024 10:44 AM HYDRAULIC CHAIR ASSEMBLER) [facility] Sodium 142 135 - 145 mmol/L Potassium, pl 4.8 3.3 - 4.9 mmol/L [facility] Chloride 107 97 - 110 mmol/L [facility] CO2 27 22 - 32 mmol/L [facility] Anion gap 8 2 - 15 mmol/L [facility] BUN 60(H) 6 - 25 mg/dL [facility] Creatinine 2.72(H) 0.80 - 1.30 mg/dL [facility] Glucose 94 70 - 199 mg/dL [facility] Comment: Interpretive Data Fasting glucose >/= [...] 2022. Calcium 9.0 8.5 - 10.3 mg/dL [facility] Phosphorus, pl 3.5 2.3 - 4.5 mg/dL [facility] Albumin 3.8 3.5 - 5.0 g/dL [facility] Blood 06/08/2024 10:4 4 AM HYDRAULIC CHAIR ASSEMBLER 06/08/2024 11:23 AM HYDRAULIC CHAIR ASSEMBLER us Lin Guerrero MD LAB BLOOD ORDERABLES Final Resul t [facility] Department [place] [address] * (ABNORMAL) eGFR (04/25/2024 9:45 AM HYDRAULIC CHAIR ASSEMBLER) eGFR 28(L) >=60 mL/min/1. 73 m2 Comment: [...] last reviewed 2021. Blood 04/25/2024 9:45 AM HYDRAULIC CHAIR ASSEMBLER 04/25/2024 9:51 AM HYDRAULIC CHAIR ASSEMBLER us Gautam Cope MD LAB BLOOD ORDERABLES Final Resul t Performing Organization Address [facility] Co de Phone Number [facility] [employer] [place] [address] * (ABNORMAL) Vitamin D 25 hydroxy (04/25/2024 9:45 AM HYDRAULIC CHAIR ASSEMBLER) Pathologist [facility] Vitamin D 25-OH 22(L) 30 - 80 ng/mL Blood 04/25/2024 9:45 AM HYDRAULIC CHAIR ASSEMBLER 04/25/2024 9:51 AM HYDRAULIC CHAIR ASSEMBLER us Gautam Cope MD LAB BLOOD ORDERABLES Final Resul t Performing Organization Address [facility] de Phone Number [facility] [employer] [place] [address] * (ABNORMAL) Total testosterone (04/25/2024 9:45 AM HYDRAULIC CHAIR ASSEMBLER) Pathologist [facility] Testosterone <5.0(L) 193.0 - 740.0 ng/dL Blood 04/25/2024 9:45 AM HYDRAULIC CHAIR ASSEMBLER 04/25/2024 11:20 AM HYDRAULIC CHAIR ASSEMBLER us Gautam Cope MD LAB BLOOD ORDERABLES Final Resul t Performing Organization Address [facility] Co de Phone Number [facility] [place] [address] * PSA diagnostic (04/25/2024 9:45 AM HYDRAULIC CHAIR ASSEMBLER) PSA-Total <0.02 <=6.20 ng/mL Comment: Interpretive Data [...] last revised 21. Blood 04/25/2024 9:45 AM HYDRAULIC CHAIR ASSEMBLER 04/25/2024 9:51 AM HYDRAULIC CHAIR ASSEMBLER us Gautam Cope MD LAB BLOOD ORDERABLES Final Resul t Performing Organization Address City/[facility] Co de Phone Number [facility] Department [place] [employer] [place] [address] * Lactate dehydrogenase (LD) (04/25/2024 9:45 AM HYDRAULIC CHAIR ASSEMBLER) Pathologist [facility] Lactate dehydrogenase (LDH) 157 100 - 250 Units/L Blood 04/25/2024 9:45 AM HYDRAULIC CHAIR ASSEMBLER 04/25/2024 9:51 AM HYDRAULIC CHAIR ASSEMBLER us Gautam Cope MD LAB BLOOD ORDERABLES Final Resul t Performing Organization Address [facility] de Phone Number [facility] Department [place] [employer] [place] [address] * (ABNORMAL) Hemoglobin A1c (04/25/2024 9:45 AM HYDRAULIC CHAIR ASSEMBLER) Pathologist [facility] Hgb A1C 8.1(H) 4.0 - 5.6 % Estimated Average Glucose 186 mg/dL [facility] Comment: The ADA recommends reporting an estimated Average Glucose (eAG) with all Hemoglobin A1c results using the equation derived from a study of 507 normal and diabetic adults. Minority populations were underrepresented and children were not included. (Diabetes Care 2020; 43(S1): S66-S76). The eAG is not equivalent to a fasting glucose. Blood 04/25/2024 9:45 AM HYDRAULIC CHAIR ASSEMBLER 04/25/2024 9:51 AM HYDRAULIC CHAIR ASSEMBLER us Gautam Cope MD LAB BLOOD ORDERABLES Final Resul t Performing Organization Address City/[facility] Co de Phone Number [facility] Department [place] [address] * Vitamin B12 (04/25/2024 9:45 AM HYDRAULIC CHAIR ASSEMBLER) Vitamin B12 390 230 - 1,250 pg/mL Blood 04/25/2024 9:45 AM HYDRAULIC CHAIR ASSEMBLER 04/25/2024 11:20 AM HYDRAULIC CHAIR ASSEMBLER us Gautam Cope MD LAB BLOOD ORDERABLES Final Resul t Performing Organization Address [facility] de Phone Number [facility] Department [place] [address] * (ABNORMAL) Comprehensive metabolic panel (04/25/2024 9:45 AM HYDRAULIC CHAIR ASSEMBLER) Pathologist [facility] Sodium 142 135 - 145 mmol/L Potassium, pl 4.5 3.3 - 4.9 mmol/L [facility] Chloride 106 97 - 110 mmol/L [facility] CO2 29 22 - 32 mmol/L [facility] Anion gap 7 2 - 15 mmol/L [facility] BUN 41(H) 6 - 25 mg/dL [facility] Creatinine 2.25(H) 0.80 - 1.30 mg/dL [facility] Glucose 201(H) 70 - 199 mg/dL [facility] Comment: Interpretive Data Fasting glucose >/= [...] Calcium 9.2 8.5 - 10.3 mg/dL [facility] Bilirubin, total 0.3 0.1 - 1.2 mg/dL [facility] Protein, pl 6.7 6.5 - 8.5 g/dL [facility] Albumin 3.9 3.5 - 5.0 g/dL [facility] Alk phos 128 40 - 130 Units/L [facility] ALT 10 7 - 55 Units/L [facility] AST 12 10 - 50 Units/L [facility] Blood 04/25/2024 9:45 AM HYDRAULIC CHAIR ASSEMBLER 04/25/2024 9:51 AM HYDRAULIC CHAIR ASSEMBLER us Gautam Cope MD LAB BLOOD ORDERABLES Final Resul t [facility] Department [place] [address] * (ABNORMAL) Differential, auto (04/25/2024 9:40 AM HYDRAULIC CHAIR ASSEMBLER) Neutrophil abs 9.1(H) 1.5 - 6.5 K/cumm Comment:Testing performed by : [facility], [address] [place] [phone] Lymphocyte abs 1.6 0.8 - 3.3 K/cumm [facility] Comment:Testing performed by : [facility], [address] [place] [phone] Monocyte abs 0.9(H) 0.2 - 0.8 K/cumm [facility] Comment:Testing performed by : [facility], [address] [place] [phone] Eosinophil abs 0.2 0.0 - 0.5 K/cumm [facility] Comment:Testing performed by : [facility], [address] [place] [phone] Basophil abs 0.1 0.0 - 0.1 K/cumm [facility] Comment:Testing performed by : [facility], [address] [place] [phone] Neutrophil pct 76.7 % [facility] Comment: Interpretive Data Percent cell count reference ranges are not reported, since discordance with absolute values may lead to misinterpretation of CBC data. Current Interpretive Data was last revised on 2017. Testing performed by: [facility], [address] [place] [phone] Lymphocyte pct 13.2 % [facility] Comment: Interpretive Data Percent cell count reference ranges are not reported, since discordance with absolute values may lead to misinterpretation of CBC data. Current Interpretive Data was last revised on 2017. Testing performed by: [facility], [address] [place] [phone] Monocyte pct 7.1 % [facility] Comment: Interpretive Data Percent cell count reference ranges are not reported, since discordance with absolute values may lead to misinterpretation of CBC data. Current Interpretive Data was last revised on 2017. Testing performed by: [facility], [address] [place] [phone] Eosinophil pct 1.8 % [facility] Comment: Interpretive Data Percent cell count reference ranges are not reported, since discordance with absolute values may lead to misinterpretation of CBC data. Current Interpretive Data was last revised on 2017. Testing performed by: [facility], [address] [place] [phone] Basophil pct 1.2 % [facility] Comment: Interpretive Data Percent cell count reference ranges are not reported, since discordance with absolute values may lead to misinterpretation of CBC data. Current Interpretive Data was last revised on 2017. Testing performed by: [facility], [address] [place] [phone] Blood 04/25/2024 9:40 AM HYDRAULIC CHAIR ASSEMBLER 04/25/2024 9:45 AM HYDRAULIC CHAIR ASSEMBLER us Gautam Cope MD LAB BLOOD ORDERABLES Final Resul t [facility] Department of Laboratories [place] [id number] * (ABNORMAL) CBC with auto differential (04/25/2024 9:40 AM HYDRAULIC CHAIR ASSEMBLER) WBC 11.9(H) 3.8 - 9.9 K/cumm Comment:Testing performed by : [facility], [address] [place] [address] Hgb 12.2(L) 13.0 - 17.5 g/dL [facility] Comment:Testing performed by : [facility], [address] [place] [address] Hct 38.8(L) 38.9 - 50.3 % [facility] Comment:Testing performed by : [facility], [address] [place] [address] Plt 369 150 - 400 K/cumm [facility] Comment:Testing performed by : [facility], [address] [place] [address] MPV 7.7 6.8 - 10.4 fL [facility] Comment:Testing performed by : [facility], [address] [place] [address] RBC 4.38 4.30 - 5.80 M/cumm [facility] Comment:Testing performed by : [facility], [address] [place] [address] MCV 88.6 81.3 - 96.4 fL [facility] Comment:Testing performed by : [facility], [address] [place] [address] MCH 27.8 27.1 - 33.3 pg [facility] Comment:Testing performed by : [facility], [address] [place] [address] MCHC 31.3(L) 32.3 - 35.7 g/dL [facility] Comment:Testing performed by : [facility], [address] [place] [address] RDW CV 14.7 11.1 - 14.9 % [facility] Comment:Testing performed by : [facility], [address] [place] [address] [place] [phone] NRBC abs 0.00 0.00 - 0.01 K/cumm [facility] Comment:Testing performed by : [facility], [address] [place] [phone] Blood 04/25/2024 9:40 AM HYDRAULIC CHAIR ASSEMBLER 04/25/2024 9:45 AM HYDRAULIC CHAIR ASSEMBLER us Gautam Cope MD LAB BLOOD ORDERABLES Final Resul t [facility] Department [place] [address] * Dexa TBS Axial Skeleton Bone Density 1 or more sites (04/24/2024 11:56 AM HYDRAULIC CHAIR ASSEMBLER) Anatomical Region Laterality Modality Wrist, Body N/A Radiographic Roberta ging Narrative 04/24/2024 12:52 PM HYDRAULIC CHAIR ASSEMBLER Patient Name: David Wei Date of : 1940 Date of scan: 04/24/2024 Bone mineral density was performed on a [employer] Discovery Densitometer. Based on machine cross-calibration [...] mineral density scan were prepared by Alisha Montejo (R)(CBDT)who is accredited by the International Society of Clinical Densitometry. The overall patient assessment and scan interpretation were performed by Daquan George M.D. who is certified by the International Society of Clinical Densitometry. [id number] Daquan George MD IMG DXA PROCEDURES Final Result * (ABNORMAL) Lipid panel (03/08/2023 11:55 AM HYDRAULIC CHAIR ASSEMBLER) Cholesterol 193 30 - 199 mg/dL [facility] Comment: Interpretive Data Ages < or [...] revised on 2017. Triglycerides 250(H) <=149 mg/dL [facility] Comment: Interpretive Data Ages < or [...] revised on 2017. HDL 36(L) >=40 mg/dL [facility] Comment: Interpretive Data Ages < or [...] on 2017. LDL, calculated 107 <=129 mg/dL [facility] Comment: Interpretive Data Ages < or = [...] revised on 2017. Non-HDL Cholesterol 157 mg/dL [facility] Comment: Interpretive Data Ages < or = [...] last revised on 2017. Chol/HDL ratio 5 [facility] Blood 03/08/2023 11:5 5 AM HYDRAULIC CHAIR ASSEMBLER 03/08/2023 3:48 PM HYDRAULIC CHAIR ASSEMBLER Kraig Ching MD LAB BLOOD ORDERABLES Final Re sult [facility] Department [place] [address] * (ABNORMAL) Albumin Creatinine Ratio, Urine (01/01/2023 10:40 AM CDT) Albumin Ur 227.3 mg/L [facility] Comment: Interpretive Data No reference range established. Current interpretive data was last revised 2018. Creatinine Ur 66.5 mg/dL [facility] Comment: Interpretive Data No reference range established. Current interpretive data was last revised 2018. Albumin Creatinine Ratio, Ur 342(H) 1 - 29 mg/g [facility] Urine 01/01/2023 10:4 0 AM CDT 01/01/2023 10:45 AM CDT us Kraig Ching MD LAB URINE ORDERABLES Final Re sult [facility] Department [place] [address] * DIABETES EYE EXAM (06/29/2018) Diabetic Eye Exam Normal us Historical Provider HEALTH MAINTENANCE Final Result from Last 3 Months or Most Recently Relevant to Health Maintenance Insurance [facility] MEDICARE [employer] MEDICARE [facility] MEDICARE Advance Directives For more information, please contact: [phone] * Full Code (Latest Code Status on File) Date Activated Date Inactivated Comments 12/16/2017 2:44 PM 12/16/2017 7:18 PM Care Teams Dining Services Director Relationship Specialty Start Date End Date Kraig Ching MD [address] [facility] [address] [place] [address] PCP - General 07/10/16 Gautam Cope MD [address] [facility] [address] [place] [address] Medical Oncologist/Cooker Pie Filling Medical Oncology 08/18/18 Tramaine Roe MD [address] [facility] [address] [place] [address] Referring Physician Urology 08/18/18 Sukhwinder Uribe MD [address] [facility] [address] [place] [address] Consulting Physician Urology 08/18/18 Shay Guillermo MD [address] [facility] [address] [place] [address] Referring Physician Urology 08/18/18 Marsha Landis, RN Registered Nurse 11/17/18
--- OUTSIDE RECORDS SUMMARY | 2024-07-21 06:32 | XMS_ITS ---
Author Organization [facility] Address [address] [place] [address] Care Team Providers Care Mortgage Collector Name Role Phone Kraig Ching MD Primary Care Provider [phone] Gautam Cope MD Unavailable Tramaine Roe MD Unavailable [phone] Sukhwinder Uribe MD Unavailable [phone] Shay Guillermo MD Unavailable [phone] Marsha Landis RN Unavailable Unavailab Active Problems Problem Noted Date Diagnosed Date Statin myopathy 06/08/2024 Essential hypertension 05/30/2024 Type 2 diabetes mellitus wit h stage 3b chronic kidney disease, with long-term current use of insulin 05/30/2024 Assessment & Plan (06/08/2024 4:46 AM [employer]): Continue current regimen.Limit nephrotoxins.Reviewed creatinine. Avoid NSAIDS. [...] 03/08/2023 Assessment & Plan (06/08/2024 4:46 AM [employer]): Hypertension is controlled. Continue current regimen. Assessment & Plan (10/05/2023 12:54 PM CDT): Hypertension is controlled. Decrease carvedilol to 12.5 mg. Assessment & Plan (03/08/2023 7:11 AM [employer]): Hypertension is controlled. Continue current regimen. 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 Avoid NSAIDS. Assessment & Plan (10/05/2023 5:50 AM CDT): Continue current regimen.Limit nephrotoxins.Reviewed creatinine. Avoid NSAIDS. Assessment & Plan (03/08/2023 7:12 AM [employer]): Continue current regimen.Limit nephrotoxins.Reviewed creatinine. Avoid NSAIDS. CKD (chronic kidney disease) 03/08/2022 Assessment & Plan (06/08/2024 4:45 AM [employer]): Limit nephrotoxins. Monitor creatinine. Avoid NSAIDS.Follow with Nephrology. 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 chronic kidney disease 2021 Gastroesophageal reflux disease 04/08/2021 Assessment & Plan (03/08/2023 11:17 AM [employer]): Reviewed dietary modifications. Continue PPI. Assessment & Plan (08/18/2022 6:36 AM CDT): Reviewed dietary modifications. Continue PPI. Assessment & Plan (02/12/2022 6:03 AM CDT): Reviewed dietary modifications. Continue PPI. Assessment & Plan (04/08/2021 5:55 AM [employer]): Reviewed dietary modifications. Continue PPI. 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 Continue home PT exercises. Advised using a walker. Assessment & Plan (08/18/2022 11:47 AM CDT): Continue oxycodone. Continue home PT exercises. Advised using a walker. Assessment & Plan (02/12/2022 11:41 AM CDT): Continue oxycodone. Continue home PT exercises. A prescription for a walker. Assessment & Plan (04/08/2021 5:55 AM [employer]): Continue oxycodone. Continue home PT exercises. Continue walker. Assessment & Plan (12/26/2020 10:48 AM CDT): Continue oxycodone. Script for walker. Assessment & Plan (09/26/2020 11:29 AM CDT): Continue ROM exercises and follow with Pain Management. Refill oxycodone as needed. Prostate cancer 09/06/2018 Assessment & Plan (06/08/2024 4:46 AM [employer]): Follow with Oncology. Continue Zytiga. Assessment & [...] 01/25/2018 Assessment & Plan (03/07/2018 6:54 AM [employer]): Hypertension is controlled. Continue current regimen. CHF [...] creatinine. Assessment & Plan (04/08/2021 5:54 AM [employer]): Hypertension is controlled. Continue current regimen.Limit nephrotoxins. [...] NSAIDS. Assessment & Plan (03/07/2018 6:55 AM [employer]): Hypertension is controlled. Continue current regimen. Limit nephrotoxins. Monitor creatinine. Avoid NSAIDS. Assessment & Plan (11/25/2017 7:09 AM CDT): Limit nephrotoxins. Monitor creatinine. Avoid NSAIDS. Duodenal ulcer 11/25/2017 Assessment & Plan (11/25/2017 10:16 AM CDT): Reviewed GI note . Continue pantoprazole. Avoid NSAIDS. Refer for EGD. PAF (paroxysmal atrial fibrillation) 10/22/2017 Assessment & Plan (03/07/2018 6:54 AM [employer]): Continue rate control. Continue anticoagualtion. Anticipate starting [...] NSAIDS. Assessment & Plan (03/07/2018 6:55 AM [employer]): Limit nephrotoxins. Monitor creatinine. Avoid NSAIDS. Assessment [...] diet. Assessment & Plan (04/08/2021 10:17 AM [employer]): Reviewed HgBA1C elevated at 10.6 on 04/01/21. [...] therapy. Assessment & Plan (03/07/2018 6:57 AM [employer]): Continue pravastatin. He had myalgias on other [...] diet. Assessment & Plan (03/02/2017 6:53 AM [employer]): Hypertension is controlled. Continue current regimen. Reviewed low sodium diet. Assessment & Plan (01/15/2017 6:44 AM CDT): Reviewed proper diet. Continue statin therapy. Hyperlipidemia 01/12/2012 Assessment & Plan (06/08/2024 4:46 AM [employer]): Continue pravastatin. Order lipid panel at next [...] 05/28/2023 Assessment & Plan (03/08/2023 11:40 AM [employer]): Agree with cataract surgery. He has 1st [...] 08/30/2017 Assessment & Plan (03/02/2017 10:48 AM [employer]): Mood is improved. Monitor off medication. Impotence [...] 200. Assessment & Plan (03/07/2018 6:56 AM [employer]): Continue current regimen. Advised annual eye exam.Limit nephrotoxins. Monitor creatinine. Avoid NSAIDS. Assessment & Plan (11/25/2017 10:16 AM CDT): Continue current regimen and add Januvia.Advised annual eye exam. Limit nephrotoxins. Monitor creatinine. Avoid NSAIDS. Assessment & Plan (01/15/2017 6:44 AM CDT): Continue current regimen. Advised annual eye exam. Reviewed proper diet. Continue statin therapy.
--- OUTSIDE RECORDS SUMMARY | 2024-07-21 06:32 | XMS_ITS | Referral Summary ---
Author Organization [facility] Address [address] [place] [address] Care Team Providers Care Certified Substance Abuse Counselor Name Role Phone Kraig Ching MD Primary Care Provider Gautam Cope MD Unavailable Tramaine Roe MD Unavailable [phone] Sukhwinder Uribe MD Unavailable Shay Guillermo MD Unavailable Marsha Landis RN Unavailable Unavailab le Encounters Date Type Department Care Team Description 07/19/2024 7:45 PM CDT - 07/19/2024 11:59 PM CDT Hospital Encounter [facility] [address] [place], [place] [id number] Urinary frequency Discharge Disposition: Discharge to home or self care 07/19/2024 2:00 PM CDT Office Visit [facility] Care at [address] [phone] Clau Childers PA Urinary frequency (Primary Dx); Leukocytosis, unspecified type 07/18/2024 Patient Self-Triage [facility] Physicians [address] [place] [address] Mychart, Generic Provider 07/18/2024 1:00 PM CDT Office Visit [facility] Oncology [address] [facility] Floor [address] [place] [address] Gautam Cope MD Prostate cancer (HCC) (Primary Dx) 07/18/2024 12:00 PM CDT Lab [facility] - Lab Collection [address] [place] [address] Prostate cancer (HCC) 07/18/2024 1:45 PM CDT Infusion [facility] - Infusion [address] [place] [address] Prostate cancer (HCC) (Primary Dx) 07/01/2024 Orders Only [facility] Health Information Management [address] [place] [id number] Scanning, Provider 06/14/2024 6:15 PM SEARCH LEAD Lab [facility] ([facility]) [address] [place] [phone] GABRIELA (acute kidney injury) 06/14/2024 3:00 PM SEARCH LEAD Office Visit [facility] Nephrology [address] [place] [address] 5th [place] [address] [place] [address] Lin Guerrero MD Chronic kidney disease, stage 3b (HCC) (Primary Dx); GABRIELA (acute kidney injury); Hypertension, essential; Secondary hyperparathyroidism of renal origin 06/08/2024 12:00 PM SEARCH LEAD Lab [facility] ([facility]) [address] [place] [phone] 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 chronic kidney disease (HCC); Hypertension, essential; Secondary hyperparathyroidism of renal origin; Stage 3 chronic kidney disease, unspecified whether stage 3a or 3b CKD (HCC); Primary hypertension; Vitamin D deficiency; Type 2 diabetes mellitus with stage 3a chronic kidney disease, with long-term current use of insulin (HCC); Fatigue, unspecified type; GABRIELA (acute kidney injury) 06/08/2024 9:45 AM SEARCH LEAD Office Visit [facility] [address] [facility] [address] [place] [phone] Kraig Ching MD Hypertension, essential (Primary Dx); Prostate cancer (HCC); Type 2 diabetes mellitus with stage 3b chronic kidney disease, with long-term current use of insulin (HCC); Stage 3b chronic kidney disease (HCC); Hyperlipidemia, unspecified hyperlipidemia type 05/24/2024 Orders Only [facility] Nephrology [address] [place] [address] [place] [address] [place] [address] Lin Guerrero MD 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 [...] type; GABRIELA (acute kidney injury) 05/02/[address] [address] Kraig Ching MD Medical Question/Miscellaneous 04/28/[address] [place] [address] Stef Roman NP 04/28/2024 Orders Only [address] [place] [address] Stef Roman NP 04/25/2024 11:45 AM SEARCH LEAD Infusion [facility] - Infusion [address] [address] Prostate cancer (HCC) (Primary Dx) 04/25/2024 9:45 AM SEARCH LEAD Lab [facility] - Lab Collection [address] [place] [address] Prostate cancer (HCC) 04/25/2024 10:45 AM SEARCH LEAD Office Visit [facility] Oncology [address] [facility] Floor [address] [place] [phone] Gautam Cope MD Prostate cancer (HCC) 04/24/[address] [place] [address] Daquan George MD 04/24/2024 11:50 AM SEARCH LEAD Clinical Support [address] [place] [phone] Age-related osteoporosis without current pathological fracture (Primary Dx) 04/24/2024 12:20 PM SEARCH LEAD Office Visit [facility] [address] [facility] 5th [place] [address] [place] [phone] Daquan George MD Age-related osteoporosis without current [...] 05/30/2024 Assessment & Plan (06/08/2024 4:46 AM SEARCH LEAD): Continue current regimen.Limit nephrotoxins.Reviewed creatinine. Avoid NSAIDS. [...] 03/08/2023 Assessment & Plan (06/08/2024 4:46 AM SEARCH LEAD): Hypertension is controlled. Continue current regimen. Assessment & Plan (10/05/2023 12:54 PM CDT): Hypertension is controlled. Decrease carvedilol to 12.5 mg. Assessment & Plan (03/08/2023 7:11 AM SEARCH LEAD): Hypertension is controlled. Continue current regimen. 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 Avoid NSAIDS. Assessment & Plan (10/05/2023 5:50 AM CDT): Continue current regimen.Limit nephrotoxins.Reviewed creatinine. Avoid NSAIDS. Assessment & Plan (03/08/2023 7:12 AM SEARCH LEAD): Continue current regimen.Limit nephrotoxins.Reviewed creatinine. Avoid NSAIDS. CKD (chronic kidney disease) 03/08/2022 Assessment & Plan (06/08/2024 4:45 AM SEARCH LEAD): Limit nephrotoxins. Monitor creatinine. Avoid NSAIDS.Follow with Nephrology. 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 chronic kidney disease 2021 Gastroesophageal reflux disease 04/08/2021 Assessment & Plan (03/08/2023 11:17 AM SEARCH LEAD): Reviewed dietary modifications. Continue PPI. Assessment & Plan (08/18/2022 6:36 AM CDT): Reviewed dietary modifications. Continue PPI. Assessment & Plan (02/12/2022 6:03 AM CDT): Reviewed dietary modifications. Continue PPI. Assessment & Plan (04/08/2021 5:55 AM SEARCH LEAD): Reviewed dietary modifications. Continue PPI. 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 Continue home PT exercises. Advised using a walker. Assessment & Plan (08/18/2022 11:47 AM CDT): Continue oxycodone. Continue home PT exercises. Advised using a walker. Assessment & Plan (02/12/2022 11:41 AM CDT): Continue oxycodone. Continue home PT exercises. A prescription for a walker. Assessment & Plan (04/08/2021 5:55 AM SEARCH LEAD): Continue oxycodone. Continue home PT exercises. Continue walker. Assessment & Plan (12/26/2020 10:48 AM CDT): Continue oxycodone. Script for walker. Assessment & Plan (09/26/2020 11:29 AM CDT): Continue ROM exercises and follow with Pain Management. Refill oxycodone as needed. Prostate cancer 09/06/2018 Assessment & Plan (06/08/2024 4:46 AM SEARCH LEAD): Follow with Oncology. Continue Zytiga. Assessment & [...] 01/25/2018 Assessment & Plan (03/07/2018 6:54 AM SEARCH LEAD): Hypertension is controlled. Continue current regimen. CHF [...] creatinine. Assessment & Plan (04/08/2021 5:54 AM SEARCH LEAD): Hypertension is controlled. Continue current regimen.Limit nephrotoxins. [...] NSAIDS. Assessment & Plan (03/07/2018 6:55 AM SEARCH LEAD): Hypertension is controlled. Continue current regimen. Limit nephrotoxins. Monitor creatinine. Avoid NSAIDS. Assessment & Plan (11/25/2017 7:09 AM CDT): Limit nephrotoxins. Monitor creatinine. Avoid NSAIDS. Duodenal ulcer 11/25/2017 Assessment & Plan (11/25/2017 10:16 AM CDT): Reviewed GI note . Continue pantoprazole. Avoid NSAIDS. Refer for EGD. PAF (paroxysmal atrial fibrillation) 10/22/2017 Assessment & Plan (03/07/2018 6:54 AM SEARCH LEAD): Continue rate control. Continue anticoagualtion. Anticipate starting [...] NSAIDS. Assessment & Plan (03/07/2018 6:55 AM SEARCH LEAD): Limit nephrotoxins. Monitor creatinine. Avoid NSAIDS. Assessment [...] diet. Assessment & Plan (04/08/2021 10:17 AM SEARCH LEAD): Reviewed HgBA1C elevated at 10.6 on 04/01/21. [...] therapy. Assessment & Plan (03/07/2018 6:57 AM SEARCH LEAD): Continue pravastatin. He had myalgias on other [...] diet. Assessment & Plan (03/02/2017 6:53 AM SEARCH LEAD): Hypertension is controlled. Continue current regimen. Reviewed low sodium diet. Assessment & Plan (01/15/2017 6:44 AM CDT): Reviewed proper diet. Continue statin therapy. Hyperlipidemia 01/12/2012 Assessment & Plan (06/08/2024 4:46 AM SEARCH LEAD): Continue pravastatin. Order lipid panel at next [...] 05/28/2023 Assessment & Plan (03/08/2023 11:40 AM SEARCH LEAD): Agree with cataract surgery. He has 1st [...] 08/30/2017 Assessment & Plan (03/02/2017 10:48 AM SEARCH LEAD): Mood is improved. Monitor off medication. Impotence [...] 200. Assessment & Plan (03/07/2018 6:56 AM SEARCH LEAD): Continue current regimen. Advised annual eye exam.Limit [...] 01/17/2019 Influenza, Unspecified 01/17/2019(Deferred: Daisy ent Refused) [employer] ([employer]) SARS-CoV-2 Vaccination 06/14/2020, 06/14/2020 Pfizer SARS-CoV-2 [...] pur e alcohol) Occasional glass of wine. [facility] Utilities Answer Date Recorded In the [...] often do you attend chur ch or latter-day services? Never 04/04/2024 Do you belong to any clubs o r organizations such as protestant groups, unions, fraternal or athletic groups, or [...] any time in the past 12 [facility], were you homeless or living in a custodial (including now)? No 04/04/2024 Personal Safety Answer Date Recorded Have you ever been in or are you currently in a harmful physical or emotional relationship or is someone making you feel afraid or unsafe? Denies 06/09/2023 Sex and Gender Information Value Date Recorded Sex Assigned at Not on file Legal Sex Male 4:46 PM SEARCH LEAD Gender Identity Not on file Sexual Orientation [...] cm (5' 9 ) 06/14/2024 2:58 PM SEARCH LEAD Body Mass Index 29.98 06/14/2024 2:58 PM SEARCH LEAD Plan of Treatment Not on file Goals Goal Patient Goal Type Associated Problems Recent Progress Patient-Stated? Author ZAK General Goal - Patient establishes care with [facility] ACO Care Management On track(2023 1:22 PM SEARCH LEAD) Clarissa Arana RN Note: Problem: Lack of [facility] [...] providers ACO Care Management Improving( 1:22 PM SEARCH LEAD) Clarissa Arana RN Note: Problem: Potential for medical complications [...] medication regimen. Medical Devices Implanted Type Area Judge Clerk Device Identifier Shelf Expiration Date Model / Serial / Lot [employer] Lens Iol Cna0t0.195 [employer] Autonom Cna0t0.195 - [id number] - [id number] Implanted:Qty: 1 on 06/09/2023 by Higinio Connolly MD at [facility] Lens Right: Eye [employer] [id number] 10/27/2025 CNA0T0.19 5 / [id number] / [employer] Lens Iol Cna0t0.200 [employer] Cna0t0.200 - [id number] - [id number] Implanted:Qty: 1 on 05/19/2023 by Higinio Connolly MD at [facility] Left: Eye [employer] [id number] 10/06/2025 CNA0T0.20 0 / [id number] / Procedures Procedure Name Priority Date/Time [...] AM CDT EGFR Routine 06/14/2024 3:48 PM SEARCH LEAD GABRIELA (acute kidney injury) RENAL FUNCTION PANEL Routine 06/14/2024 3:48 PM SEARCH LEAD GABRIELA (acute kidney injury) URINALYSIS AND REFLEX TO MICROSCOPIC Routine 06/08/2024 10:47 AM SEARCH LEAD 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 chronic kidney disease (HCC) Hypertension, essential Secondary hyperparathyroidism of renal origin Stage 3 chronic kidney disease, unspecified whether stage 3a or 3b CKD (HCC) Primary hypertension Vitamin D deficiency Type 2 diabetes mellitus with stage 3a chronic kidney disease, with long-term current use of insulin (HCC) Fatigue, unspecified type GABRIELA (acute kidney injury) EGFR Routine 06/08/2024 10:44 AM SEARCH LEAD 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 chronic kidney disease (HCC) Hypertension, essential Secondary hyperparathyroidism of renal origin Stage 3 chronic kidney disease, unspecified whether stage 3a or 3b CKD (HCC) Primary hypertension Vitamin D deficiency Type 2 diabetes mellitus with stage 3a chronic kidney disease, with long-term current use of insulin (HCC) Fatigue, unspecified type GABRIELA (acute kidney injury) DIFFERENTIAL AUTO Routine 06/08/2024 10:44 AM SEARCH LEAD 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 chronic kidney disease [...] RENAL FUNCTION PANEL Routine 06/08/2024 10:44 AM SEARCH LEAD 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 chronic kidney disease [...] D 25 HYDROXY Routine 06/08/2024 10:44 AM SEARCH LEAD 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 chronic kidney disease [...] WITH AUTO DIFFERENTIAL Routine 06/08/2024 10:44 AM SEARCH LEAD 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 chronic kidney disease (HCC) Hypertension, essential Secondary hyperparathyroidism of renal origin Stage 3 chronic kidney disease, unspecified whether stage 3a or 3b CKD (HCC) Primary hypertension Vitamin D deficiency Type 2 diabetes mellitus with stage 3a chronic kidney disease, with long-term current use of insulin (HCC) Fatigue, unspecified type GABRIELA (acute kidney injury) PTH Routine 06/08/2024 10:44 AM SEARCH LEAD 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 chronic kidney disease [...] RATIO, URINE, RANDOM Routine 06/08/2024 10:44 AM SEARCH LEAD 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 chronic kidney disease (HCC) Hypertension, essential Secondary hyperparathyroidism of renal origin Stage 3 chronic kidney disease, unspecified whether stage 3a or 3b CKD (HCC) Primary hypertension Vitamin D deficiency Type 2 diabetes mellitus with stage 3a chronic kidney disease, with long-term current use of insulin (HCC) Fatigue, unspecified type GABRIELA (acute kidney injury) EGFR STAT 04/25/2024 9:45 AM SEARCH LEAD Prostate cancer (HCC) VITAMIN D 25 HYDROXY Routine 04/25/2024 9:45 AM SEARCH LEAD Prostate cancer (HCC) TOTAL TESTOSTERONE Routine 04/25/2024 9:45 AM SEARCH LEAD Prostate cancer (HCC) HEMOGLOBIN A1C Routine 04/25/2024 9:45 AM SEARCH LEAD Prostate cancer (HCC) VITAMIN B12 Routine 04/25/2024 9:45 AM SEARCH LEAD Prostate cancer (HCC) LACTATE DEHYDROGENASE Routine 04/25/2024 9:45 AM SEARCH LEAD Prostate cancer (HCC) COMPREHENSIVE METABOLIC PANEL STAT 04/25/2024 9:45 AM SEARCH LEAD Prostate cancer (HCC) PSA DIAGNOSTIC Routine 04/25/2024 9:45 AM SEARCH LEAD Prostate cancer (HCC) DIFFERENTIAL AUTO Routine 04/25/2024 9:40 AM SEARCH LEAD Prostate cancer (HCC) CBC WITH AUTO DIFFERENTIAL Routine 04/25/2024 9:40 AM SEARCH LEAD Prostate cancer (HCC) DEXA TBS AXIAL SKELETON BONE DENSITY 1 OR MORE SITES Schedule Routine, Read Routine (OP Routine) 04/24/2024 11:56 AM SEARCH LEAD Age-related osteoporosis without current pathological fracture LIPID PANEL Routine 03/08/2023 11:55 AM SEARCH LEAD Hyperlipidemia, unspecified hyperlipidemia type ALBUMIN CREATININE RATIO, [...] Large Ketones, ur, POC Negative Negative Specific [place], POC 1.015 1.003 - 1.030 Blood, ur, POC Hemolyzed, trace(A) Negative pH, ur, POC 6.0 5.0 - 8.0 Protein, ur, POC 30.(A) Negative Urobilinogen, urine, POC 0.2 0.2 - 1.0 mg/dL Nitrite, ur, POC Negative Negative Leukocytes, ur, POC Negative Negative Lot Number [id number] Urine 07/19/2024 2:16 PM CDT Clau ESQUIVEL [...] LAB BLOOD ORDERABLES Final Resul t [facility] Department [place] [address] * (ABNORMAL) Differential, auto (07/18/2024 12:07 PM CDT) Neutrophil abs 17.55(H) 1.50 - 6.50 K/cumm Comment:Testing performed by : [facility], [address] [place] [address] Lymphocyte abs 0.96 0.80 - 3.30 K/cumm [facility] Comment:Testing performed by : [facility], [address] [place] [phone] Monocyte abs 1.48(H) 0.20 - 0.80 K/cumm [facility] Comment:Testing performed by : [facility], [address] [place] [address] Eosinophil abs 0.06 0.00 - 0.50 K/cumm [facility] Comment:Testing performed by : [facility], [address] [place] [phone] Basophil abs 0.03 0.00 - 0.10 K/cumm [facility] Comment:Testing performed by : [facility], [address] [place] [phone] Neutrophil pct 87.4 % [facility] Comment: Interpretive Data Percent cell count reference ranges are not reported, since discordance with absolute values may lead to misinterpretation of CBC data. Current Interpretive Data was last revised on 2017. Testing performed by: [facility], [address] [place] [address] Lymphocyte pct 4.8 % [facility] Comment: Interpretive Data Percent cell count reference ranges are not reported, since discordance with absolute values may lead to misinterpretation of CBC data. Current Interpretive Data was last revised on 2017. Testing performed by: [facility], [address] [place] [phone] Monocyte pct 7.4 % [facility] Comment: Interpretive Data Percent cell count reference ranges are not reported, since discordance with absolute values may lead to misinterpretation of CBC data. Current Interpretive Data was last revised on 2017. Testing performed by: [facility], [address] [place] [phone] Eosinophil pct 0.3 % [facility] Comment: Interpretive Data Percent cell count reference ranges are not reported, since discordance with absolute values may lead to misinterpretation of CBC data. Current Interpretive Data was last revised on 2017. Testing performed by: [facility], [address] [place] [phone] Basophil pct 0.2 % [facility] Comment: Interpretive Data Percent cell count reference ranges are not reported, since discordance with absolute values may lead to misinterpretation of CBC data. Current Interpretive Data was last revised on 2017. Testing performed by: [facility], [address] [place] [phone] Blood 07/18/2024 12:0 7 PM CDT 07/18/2024 12:22 PM CDT us Gautam Cope MD LAB BLOOD ORDERABLES Final Resul t [facility] Department [place] [address] * (ABNORMAL) CBC with auto differential (07/18/2024 12:07 PM CDT) WBC 20.09(H) 3.80 - 9.90 K/cumm Comment:Testing performed by : [facility], [address] [place] [address] Hgb 12.1(L) 13.0 - 17.5 g/dL [facility] Comment:Testing performed by : [facility], [address] [place], [place] [phone] Hct 38.2(L) 38.9 - 50.3 % [facility] Comment:Testing performed by : [facility], [address] [place], [place] [phone] Plt 451(H) 150 - 400 K/cumm [facility] Comment:Testing performed by : [facility], [address] [place], [place] [phone] MPV 7.7 6.8 - 10.4 fL [facility] Comment:Testing performed by : [facility], [address] [place], [place] [phone] RBC 4.46 4.30 - 5.80 M/cumm [facility] Comment:Testing performed by : [facility], [address] [place], [place] [phone] MCV 85.5 81.3 - 96.4 fL [facility] Comment:Testing performed by : [facility], [address] [place], [place] [phone] MCH 27.1 27.1 - 33.3 pg [facility] Comment:Testing performed by : [facility], [address] [place] [address] MCHC 31.7(L) 32.3 - 35.7 g/dL [facility] Comment:Testing performed by : [facility], [address] [place] [address] RDW CV 14.9 11.1 - 14.9 % [facility] Comment:Testing performed by : [facility], [address] [place], [place] [phone] NRBC abs 0.00 0.00 - 0.01 K/cumm [facility] Comment:Testing performed by : [facility], [address] [place] [address] Blood 07/18/2024 12:0 7 PM CDT 07/18/2024 12:22 PM CDT Gautam Cope MD LAB BLOOD ORDERABLES Final Resul t Performing Organization Address [facility] Co de Phone Number [facility] [place] [employer] [place] [address] * PSA diagnostic (07/18/2024 12:07 PM CDT) [...] Organization Address [facility] de Phone Number [facility] [employer] [place] [address] * Lactate dehydrogenase (LD) (07/18/2024 12:07 PM CDT) Lactate dehydrogenase (LDH) 216 100 - 250 Units/L Blood 07/18/2024 12:0 7 PM CDT 07/18/2024 12:25 PM CDT us Gautam Cope MD LAB BLOOD ORDERABLES Final Resul t Performing Organization Address [facility] Co de Phone Number [facility] Department [place] [address] * (ABNORMAL) Hemoglobin A1c (07/18/2024 12:07 PM CDT) Hgb A1C 8.0(H) 4.0 - 5.6 % Estimated Average Glucose 183 mg/dL [facility] Comment: The ADA recommends reporting [...] LAB BLOOD ORDERABLES Final Resul t [facility] Department [place] [address] * (ABNORMAL) Comprehensive metabolic panel (07/18/2024 12:07 PM CDT) [facility] Sodium 142 135 - 145 mmol/L Potassium, pl 4.6 3.3 - 4.9 mmol/L [facility] Chloride 106 97 - 110 mmol/L [facility] CO2 24 22 - 32 mmol/L [facility] Anion gap 12 2 - 15 mmol/L [facility] BUN 52(H) 6 - 25 mg/dL [facility] Creatinine 2.66(H) 0.80 - 1.30 mg/dL [facility] Glucose 164 70 - 199 mg/dL [facility] Comment: Interpretive Data Fasting glucose [...] 2022. Calcium 9.0 8.5 - 10.3 mg/dL [facility] Bilirubin, total 0.5 0.1 - 1.2 mg/dL [facility] Protein, pl 6.7 6.5 - 8.5 g/dL [facility] Albumin 4.0 3.5 - 5.0 g/dL [facility] Alk phos 126 40 - 130 Units/L [facility] ALT 10 7 - 55 Units/L [facility] AST 13 10 - 50 Units/L [facility] Blood 07/18/2024 12:0 7 PM CDT 07/18/2024 12:25 PM CDT us Gautam Cope MD LAB BLOOD ORDERABLES Final Resul t [facility] Department [place] [address] * SCAN - RADIOLOGY/IMAGING (07/01/2024 9:44 AM CDT) Anatomical Region Laterality Modality Other us Provider Scanning Final Result * (ABNORMAL) eGFR (06/14/2024 3:48 PM SEARCH LEAD) eGFR 26(L) >=60 mL/min/1. 73 m2 Comment: [...] last reviewed 2021. Blood 06/14/2024 3:48 PM SEARCH LEAD 06/14/2024 4:07 PM SEARCH LEAD Lin Guerrero MD LAB BLOOD ORDERABLES Final Resul t [facility] Department [place] [address] * (ABNORMAL) Renal function panel (06/14/2024 3:48 PM SEARCH LEAD) Pathologist [facility] Sodium 143 135 - 145 mmol/L Potassium, pl 5.0(H) 3.3 - 4.9 mmol/L [facility] Chloride 105 97 - 110 mmol/L [facility] CO2 28 22 - 32 mmol/L [facility] Anion gap 10 2 - 15 mmol/L [facility] BUN 48(H) 6 - 25 mg/dL [facility] Creatinine 2.42(H) 0.80 - 1.30 mg/dL [facility] Glucose 152 70 - 199 mg/dL [facility] Comment: Interpretive Data Fasting glucose [...] 2022. Calcium 8.7 8.5 - 10.3 mg/dL [facility] Phosphorus, pl 3.1 2.3 - 4.5 mg/dL [facility] Albumin 3.9 3.5 - 5.0 g/dL [facility] Blood 06/14/2024 3:48 PM SEARCH LEAD 06/14/2024 4:03 PM SEARCH LEAD Lin Guerrero MD LAB BLOOD ORDERABLES Final Resul t [facility] Department [place] [address] * Urinalysis reflex to microscopic (06/08/2024 10:47 AM SEARCH LEAD) Color, ur Straw Yellow Clarity, ur Clear Clear [facility] Specific gravity, ur 1.012 1.003 - 1.030 [facility] pH, urine 6.0 [facility] Comment: Interpretive Data U rine pH is affected by diet, medications, systemic acid-base disturbances, and renal tubular function. pH may affect urinary stone formation. For example, urine pH below 6.0 may help reduce the tendency for calcium phosphate stones and pH greater than 6.0 may reduce the tendency for uric acid stone formation. Source: [facility] [employer] Current Interpretive Data was last revised on 2017 Protein, ur ql Trace Negative [facility] Glucose, ur ql Negative Negative [facility] Ketones, ur Negative Negative [facility] Bilirubin, ur Negative Negative [facility] Blood, ur Negative Negative [facility] Urobilinogen, ur <2.0 <2.0 mg/dL [facility] Nitrite, ur Negative Negative [facility] Leukocyte esterase, ur Negative Negative [facility] UA reflex comment Reflex conditions for microscopic UA not met. [facility] Urine 06/08/2024 10:4 7 AM SEARCH LEAD 06/08/2024 11:41 AM SEARCH LEAD Lin Guerrero MD LAB URINE ORDERABLES Final Resul t Performing Organization Address [facility] Co de Phone Number [facility] Department [place] [address] * (ABNORMAL) eGFR (06/08/2024 10:44 AM SEARCH LEAD) Pathologist [facility] eGFR 22(L) >=60 mL/min/1. 73 m2 Comment: [...] reviewed 2021. Blood 06/08/2024 10:4 4 AM SEARCH LEAD 06/08/2024 11:23 AM SEARCH LEAD us Lin Guerrero MD LAB BLOOD ORDERABLES Final Resul t [facility] Department [place] [address] * (ABNORMAL) Differential, auto (06/08/2024 10:44 AM SEARCH LEAD) Neutrophil abs 7.8(H) 1.5 - 6.5 K/cumm Imm gran abs 0.1 0.0 - 0.1 K/cumm [facility] Lymphocyte abs 1.9 0.8 - 3.3 K/cumm [facility] Monocyte abs 1.0(H) 0.2 - 0.8 K/cumm [facility] Eosinophil abs 0.1 0.0 - 0.5 K/cumm [facility] Basophil abs 0.0 0.0 - 0.1 K/cumm [facility] Neutrophil pct 71.1 % [facility] Comment: Interpretive Data Percent cell count reference ranges are not reported, since discordance with absolute values may lead to misinterpretation of CBC data. Current Interpretive Data was last revised on 2017. Imm gran pct 0.8 % [facility] Comment: Interpretive Data Percent cell count reference ranges are not reported, since discordance with absolute values may lead to misinterpretation of CBC data. Current Interpretive Data was last revised on 2017. Lymphocyte pct 17.1 % [facility] Comment: Interpretive Data Percent cell count reference ranges are not reported, since discordance with absolute values may lead to misinterpretation of CBC data. Current Interpretive Data was last revised on 2017. Monocyte pct 9.3 % [facility] Comment: Interpretive Data Percent cell count reference ranges are not reported, since discordance with absolute values may lead to misinterpretation of CBC data. Current Interpretive Data was last revised on 2017. Eosinophil pct 1.3 % [facility] Comment: Interpretive Data Percent cell count reference ranges are not reported, since discordance with absolute values may lead to misinterpretation of CBC data. Current Interpretive Data was last revised on 2017. Basophil pct 0.4 % [facility] Comment: Interpretive Data Percent cell count reference ranges are not reported, since discordance with absolute values may lead to misinterpretation of CBC data. Current Interpretive Data was last revised on 2017. Blood 06/08/2024 10:4 4 AM SEARCH LEAD 06/08/2024 11:23 AM SEARCH LEAD us Lin Guerrero MD LAB BLOOD ORDERABLES Final Resul t [facility] Department [place] [address] * (ABNORMAL) CBC with auto differential (06/08/2024 10:44 AM SEARCH LEAD) WBC 11.0(H) 3.8 - 9.9 K/cumm Hgb 12.0(L) 13.0 - 17.5 g/dL [facility] Hct 36.9(L) 38.9 - 50.3 % [facility] Plt 357 150 - 400 K/cumm [facility] MPV 9.8 9.1 - 12.3 fL [facility] RBC 4.27(L) 4.30 - 5.80 M/cumm [facility] MCV 86.4 81.3 - 96.4 fL [facility] MCH 28.1 27.1 - 33.3 pg [facility] MCHC 32.5 32.3 - 35.7 g/dL [facility] RDW CV 14.1 11.1 - 14.9 % [facility] RDW SD 44.2 35.7 - 48.1 fL [facility] NRBC abs 0.00 0.00 - 0.01 K/cumm [facility] Blood 06/08/2024 10:4 4 AM SEARCH LEAD 06/08/2024 11:23 AM SEARCH LEAD us Lin Guerrero MD LAB BLOOD ORDERABLES Final Resul t Performing Organization Address [facility] de Phone Number [facility] [place] [employer] [place] [address] * (ABNORMAL) Protein / creatinine ratio, urine, random (06/08/2024 10:44 AM SEARCH LEAD) Protein, ur, quant 21.3 mg/dL Comment: Interpretive Data No reference range established. Current interpretive data was last revised 2018. Creatinine Ur 52.2 mg/dL [facility] Comment: Interpretive Data No reference range established. Current interpretive data was last revised 2018. Protein/creatinin e ratio 408.0(H) 0.0 - 180.0 mg/g CR [facility] Urine 06/08/2024 10:4 4 AM SEARCH LEAD 06/08/2024 11:23 AM SEARCH LEAD us Lin Guerrero MD LAB URINE ORDERABLES Final Resul t Performing Organization Address [facility] de Phone Number [facility] [place] [employer] [place] [address] * Vitamin D 25 hydroxy (06/08/2024 10:44 AM SEARCH LEAD) Vitamin D 25-OH 42 30 - 80 ng/mL Blood 06/08/2024 10:4 4 AM SEARCH LEAD 06/08/2024 11:23 AM SEARCH LEAD us Lin Guerrero MD LAB BLOOD ORDERABLES Final Resul t Performing Organization Address [facility] Co de Phone Number [facility] [employer] [place] [address] * (ABNORMAL) PTH (06/08/2024 10:44 AM SEARCH LEAD) Pathologist [facility] PTH 78(H) 15 - 65 pg/mL Blood 06/08/2024 10:4 4 AM SEARCH LEAD 06/08/2024 11:23 AM SEARCH LEAD Lin Guerrero MD LAB BLOOD ORDERABLES Final Resul t Performing Organization Address [facility] de Phone Number [facility] Department [place] [address] * (ABNORMAL) Renal function panel (06/08/2024 10:44 AM SEARCH LEAD) [facility] Sodium 142 135 - 145 mmol/L Potassium, pl 4.8 3.3 - 4.9 mmol/L [facility] Chloride 107 97 - 110 mmol/L [facility] CO2 27 22 - 32 mmol/L [facility] Anion gap 8 2 - 15 mmol/L [facility] BUN 60(H) 6 - 25 mg/dL [facility] Creatinine 2.72(H) 0.80 - 1.30 mg/dL [facility] Glucose 94 70 - 199 mg/dL [facility] Comment: Interpretive Data Fasting glucose [...] 2022. Calcium 9.0 8.5 - 10.3 mg/dL [facility] Phosphorus, pl 3.5 2.3 - 4.5 mg/dL [facility] Albumin 3.8 3.5 - 5.0 g/dL [facility] Blood 06/08/2024 10:4 4 AM SEARCH LEAD 06/08/2024 11:23 AM SEARCH LEAD us Lin Guerrero MD LAB BLOOD ORDERABLES Final Resul t Performing Organization Address City/[facility] Co de Phone Number [facility] [place] [employer] [place] [address] * (ABNORMAL) eGFR (04/25/2024 9:45 AM SEARCH LEAD) eGFR 28(L) >=60 mL/min/1. 73 m2 Comment: [...] last reviewed 2021. Blood 04/25/2024 9:45 AM SEARCH LEAD 04/25/2024 9:51 AM SEARCH LEAD us Gautam Cope MD LAB BLOOD ORDERABLES Final Resul t Performing Organization Address City/[facility]/ZIP Co de Phone Number [facility] [place] [address] * (ABNORMAL) Vitamin D 25 hydroxy (04/25/2024 9:45 AM SEARCH LEAD) Vitamin D 25-OH 22(L) 30 - 80 ng/mL Blood 04/25/2024 9:45 AM SEARCH LEAD 04/25/2024 9:51 AM SEARCH LEAD us Gautam Cope MD LAB BLOOD ORDERABLES Final Resul t Performing Organization Address [facility] de Phone Number [facility] [employer] [place] [address] * (ABNORMAL) Total testosterone (04/25/2024 9:45 AM SEARCH LEAD) Testosterone <5.0(L) 193.0 - 740.0 ng/dL Blood 04/25/2024 9:45 AM SEARCH LEAD 04/25/2024 11:20 AM SEARCH LEAD us Gautam Cope MD LAB BLOOD ORDERABLES Final Resul t Performing Organization Address [facility] de Phone Number [facility] [place] [employer] [place] [address] * PSA diagnostic (04/25/2024 9:45 AM SEARCH LEAD) Pathologist [facility] PSA-Total <0.02 <=6.20 ng/mL Comment: Interpretive Data [...] last revised 21. Blood 04/25/2024 9:45 AM SEARCH LEAD 04/25/2024 9:51 AM SEARCH LEAD us Gautam Cope MD LAB BLOOD ORDERABLES Final Resul t Performing Organization Address [facility] de Phone Number [facility] [place] [employer] [place] [address] * Lactate dehydrogenase (LD) (04/25/2024 9:45 AM SEARCH LEAD) Lactate dehydrogenase (LDH) 157 100 - 250 Units/L Blood 04/25/2024 9:45 AM SEARCH LEAD 04/25/2024 9:51 AM SEARCH LEAD us Gautam Cope MD LAB BLOOD ORDERABLES Final Resul t Performing Organization Address [facility] de Phone Number [facility] [place] [address] * (ABNORMAL) Hemoglobin A1c (04/25/2024 9:45 AM SEARCH LEAD) [facility] Hgb A1C 8.1(H) 4.0 - 5.6 % Estimated Average Glucose 186 mg/dL [facility] Comment: The ADA recommends reporting an estimated Average Glucose (eAG) with all Hemoglobin A1c results using the equation derived from a study of 507 normal and diabetic adults. Minority populations were underrepresented and children were not included. (Diabetes Care 2020; 43(S1): S66-S76). The eAG is not equivalent to a fasting glucose. Blood 04/25/2024 9:45 AM SEARCH LEAD 04/25/2024 9:51 AM SEARCH LEAD us Gautam Cope MD LAB BLOOD ORDERABLES Final Resul t Performing Organization Address [facility] de Phone Number [facility] [place] [address] * Vitamin B12 (04/25/2024 9:45 AM SEARCH LEAD) Pathologist [facility] Vitamin B12 390 230 - 1,250 pg/mL Blood 04/25/2024 9:45 AM SEARCH LEAD 04/25/2024 11:20 AM SEARCH LEAD us Gautam Cope MD LAB BLOOD ORDERABLES Final Resul t Performing Organization Address [facility]/State/ZIP Co de Phone Number [facility] Department [place] [address] * (ABNORMAL) Comprehensive metabolic panel (04/25/2024 9:45 AM SEARCH LEAD) Sodium 142 135 - 145 mmol/L Potassium, pl 4.5 3.3 - 4.9 mmol/L [facility] Chloride 106 97 - 110 mmol/L [facility] CO2 29 22 - 32 mmol/L [facility] Anion gap 7 2 - 15 mmol/L [facility] BUN 41(H) 6 - 25 mg/dL [facility] Creatinine 2.25(H) 0.80 - 1.30 mg/dL [facility] Glucose 201(H) 70 - 199 mg/dL [facility] Comment: Interpretive Data Fasting glucose [...] 2022. Calcium 9.2 8.5 - 10.3 mg/dL [facility] Bilirubin, total 0.3 0.1 - 1.2 mg/dL [facility] Protein, pl 6.7 6.5 - 8.5 g/dL [facility] Albumin 3.9 3.5 - 5.0 g/dL [facility] Alk phos 128 40 - 130 Units/L [facility] ALT 10 7 - 55 Units/L [facility] AST 12 10 - 50 Units/L [facility] Blood 04/25/2024 9:45 AM SEARCH LEAD 04/25/2024 9:51 AM SEARCH LEAD us Gautam Cope MD LAB BLOOD ORDERABLES Final Resul t [facility] [place] [address] * (ABNORMAL) Differential, auto (04/25/2024 9:40 AM SEARCH LEAD) Neutrophil abs 9.1(H) 1.5 - 6.5 K/cumm Comment:Testing performed by : [facility], [address] [place] [phone] Lymphocyte abs 1.6 0.8 - 3.3 K/cumm [facility] Comment:Testing performed by : [facility], [address] [place] [phone] Monocyte abs 0.9(H) 0.2 - 0.8 K/cumm [facility] Comment:Testing performed by : [facility], [address] [place] [phone] Eosinophil abs 0.2 0.0 - 0.5 K/cumm [facility] Comment:Testing performed by : [facility], [address] [place] [phone] Basophil abs 0.1 0.0 - 0.1 K/cumm [facility] Comment:Testing performed by : [facility], [address] [place] [phone] Neutrophil pct 76.7 % [facility] Comment: Interpretive Data Percent cell count reference ranges are not reported, since discordance with absolute values may lead to misinterpretation of CBC data. Current Interpretive Data was last revised on 2017. Testing performed by: [facility], [address] [place] [phone] Lymphocyte pct 13.2 % [facility] Comment: Interpretive Data Percent cell count reference ranges are not reported, since discordance with absolute values may lead to misinterpretation of CBC data. Current Interpretive Data was last revised on 2017. Testing performed by: [facility], [address] [place] [phone] Monocyte pct 7.1 % [facility] Comment: Interpretive Data Percent cell count reference ranges are not reported, since discordance with absolute values may lead to misinterpretation of CBC data. Current Interpretive Data was last revised on 2017. Testing performed by: [facility], [address] [place] [phone] Eosinophil pct 1.8 % [facility] Comment: Interpretive Data Percent cell count reference ranges are not reported, since discordance with absolute values may lead to misinterpretation of CBC data. Current Interpretive Data was last revised on 2017. Testing performed by: [facility], [address] [place] [phone] Basophil pct 1.2 % [facility] Comment: Interpretive Data Percent cell count reference ranges are not reported, since discordance with absolute values may lead to misinterpretation of CBC data. Current Interpretive Data was last revised on 2017. Testing performed by: [facility], [address] [place] [address] Blood 04/25/2024 9:40 AM SEARCH LEAD 04/25/2024 9:45 AM SEARCH LEAD us Gautam Cope MD LAB BLOOD ORDERABLES Final Resul t [facility] Department [place] [address] * (ABNORMAL) CBC with auto differential (04/25/2024 9:40 AM SEARCH LEAD) WBC 11.9(H) 3.8 - 9.9 K/cumm Comment:Testing performed by : [facility], [address] [place] [address] Hgb 12.2(L) 13.0 - 17.5 g/dL [facility] Comment:Testing performed by : [facility], [address] [place] [address] Hct 38.8(L) 38.9 - 50.3 % [facility] Comment:Testing performed by : [facility], [address] [place] [address] Plt 369 150 - 400 K/cumm [facility] Comment:Testing performed by : [facility], [address] [place], [place] [phone] MPV 7.7 6.8 - 10.4 fL [facility] Comment:Testing performed by : [facility], [address] [place], [place] [phone] RBC 4.38 4.30 - 5.80 M/cumm [facility] Comment:Testing performed by : [facility], [address] [place], [place] [phone] MCV 88.6 81.3 - 96.4 fL [facility] Comment:Testing performed by : [facility], [address] [place], [place] [phone] MCH 27.8 27.1 - 33.3 pg [facility] Comment:Testing performed by : [facility], [address] [place], [place] [phone] MCHC 31.3(L) 32.3 - 35.7 g/dL [facility] Comment:Testing performed by : [facility], [address] [place], [place] [phone] RDW CV 14.7 11.1 - 14.9 % [facility] Comment:Testing performed by : [facility], [address] [place], [place] [phone] NRBC abs 0.00 0.00 - 0.01 K/cumm [facility] Comment:Testing performed by : [facility], [address] [place] [address] Blood 04/25/2024 9:40 AM SEARCH LEAD 04/25/2024 9:45 AM SEARCH LEAD us Gautam Cope MD LAB BLOOD ORDERABLES Final Resul t [facility] [place] [address] * Dexa TBS Axial Skeleton Bone Density 1 or more sites (04/24/2024 11:56 AM SEARCH LEAD) Anatomical Region Laterality Modality Wrist, Body N/A Radiographic Roberta ging Narrative 04/24/2024 12:52 PM SEARCH LEAD Patient Name: David Wei Date of : 1940 Date of scan: 04/24/2024 Bone mineral density was performed on a [employer] Discovery Densitometer. Based on machine cross-calibration and [...] by the International Society of Clinical Densitometry. [id number] Daquan George MD IMG DXA PROCEDURES Final Result * (ABNORMAL) Lipid panel (03/08/2023 11:55 AM SEARCH LEAD) [facility] Cholesterol 193 30 - 199 mg/dL [facility] Comment: Interpretive Data Ages < [...] revised on 2017. Triglycerides 250(H) <=149 mg/dL [facility] Comment: Interpretive Data Ages < or [...] revised on 2017. HDL 36(L) >=40 mg/dL [facility] Comment: Interpretive Data Ages < or [...] 2017. LDL, calculated 107 <=129 mg/dL [facility] Comment: Interpretive Data Ages < or [...] on 2017. Non-HDL Cholesterol 157 mg/dL [facility] Comment: Interpretive Data Ages < or [...] revised on 2017. Chol/HDL ratio 5 [facility] Blood 03/08/2023 11:5 5 AM SEARCH LEAD 03/08/2023 3:48 PM SEARCH LEAD Result [facility] Kraig Ching MD LAB BLOOD ORDERABLES Final Re sult Performing Organization Address [facility] de Phone Number [facility] [place] [address] * (ABNORMAL) Albumin Creatinine Ratio, Urine (01/01/2023 10:40 AM CDT) Albumin Ur 227.3 mg/L [facility] Comment: Interpretive Data No reference range established. Current interpretive data was last revised 2018. Creatinine Ur 66.5 mg/dL [facility] Comment: Interpretive Data No reference range established. Current interpretive data was last revised 2018. Albumin Creatinine Ratio, Ur 342(H) 1 - 29 mg/g [facility] Urine 01/01/2023 10:4 0 AM CDT 01/01/2023 10:45 AM CDT Kraig Ching MD LAB URINE ORDERABLES Final Re sult Performing Organization Address [facility] de Phone Number [facility] [place] [address] * DIABETES EYE EXAM (06/29/2018) Diabetic Eye Exam Normal Result [facility] Coleen Salas MD HEALTH MAINTENANCE Final Result from Last 3 Months or Most Recently Relevant to Health Maintenance Insurance T MEDICARE T MEDICARE T MEDICARE [employer] MEDICARE Advance Directives For more information, please contact: [phone] * Full Code (Latest Code Status on File) Date Activated Date Inactivated Comments 12/16/2017 2:44 PM 12/16/2017 7:18 PM Care Teams Certified Substance Abuse Counselor Relationship Specialty Start Date End Date Kraig Ching MD [address] [facility] [address] [place] [address] PCP - General 07/10/16 Gautam Cope MD [address] [place] [address] Medical Oncologist/Economic Development Director Medical Oncology 08/18/18 Tramaine Roe MD [address] [place] [address] Referring Physician Urology 08/18/18 Sukhwinder Uribe MD [address] [place] [address] Consulting Physician Urology 08/18/18 Shay Guillermo MD [address] [facility] [address] [place] [address] Referring Physician Urology 08/18/18 Marsha Landis, RN Registered Nurse 11/17/18
--- NOTE | 2024-07-21 06:45 | ECG_ITS ---
Test Date: 2024-07-21 06:48:26 Measurements Intervals [place] Rate: 97 P: 0 [place]: 0 QRS: 34 QRSD: 97 T: 63 QT: 341 QTc: 434 Interpretive Statements ATRIAL FIBRILLATION LOW QRS VOLTAGE IN LIMB LEADS BORDERLINE ST-T WAVE ABNORMALITY- LAT/NGHIA LAT LEADS BASELINE ARTIFACT- II, III, AVL, AVF, V1, V3-V6 ABNORMAL ECG Compared to ECG 07/01/2024 08:52:18 NO SIGNIFICANT CHANGE Electronically Signed On 07-21-2024 08:21:11 CDT by Usman Cochran D.O.
[2024-07-21 06:56] LABS: Basophils Absolute Auto 0.1 K/mm3 (0.0-0.1); Basophils Percent Auto 0.4 % (0.2-1.2); Eosinophils Absolute Auto 0.1 K/mm3 (0-0.3); Eosinophils Percent Auto 0.9 % (0-4.4); Hematocrit 39.8 % (42.0-52.0); Hemoglobin 12.3 g/dL (14.0-18.0); Immature Granulocyte Absolute 0.17 K/mm3 (0.00-0.031); Lymphocytes Absolute Auto 1.42 K/mm3 (0.9-3.2); Lymphocytes Percent Auto 8.8 % (18.3-44.2); Mean Corpuscular HGB Conc 30.9 g/dl (32-36); Mean Corpuscular Hemoglobin 27.8 pg (26-34); Mean Platelet Volume 9.7 fl (7.4-10.4); Monocytes Absolute Auto 1.5 K/mm3 (0.1-0.6); Monocytes Percent Auto 9.4 % (2.6-8.5); Neutrophils Absolute Auto 12.9 K/mm3 (1.3-6.7); Neutrophils Percent Auto 79.5 % (45.5-73.1); Platelet Count Result 325 k/mm3 (150-375); Red Blood Count 4.42 M/mm3 (4.6-6.20); Red Cell Distribution Width 14.1 % (11.5-14.5); White Blood Count 16.2 K/mm3 (4.5-10.0)
[2024-07-21 07:09] LABS: Lactic Acid Reflex 1.1 mmol/L (0.7-2.0)
[2024-07-21 07:10] LABS: Alanine Aminotransferase 13 U/L (6-50); Albumin Level 3.9 g/dL (3.5-5.1); Alkaline Phosphatase 120 U/L (38-126); Anion Gap 13 mmol/L (4-12); Aspartate Amino Transferase 16 U/L (17-59); Bilirubin,Total 1.2 mg/dL (0.2-1.3); Blood Urea Nitrogen 43 mg/dL (9-20); Carbon Dioxide 25 mmol/L (22-30); Chloride 102 mmol/L (98-107); Estimated CRCL calculation 21 ml/min; Estimated Glomerular Filt Rate 24; Glucose 161 mg/dL (65-110); Lactate Dehydrogenase 154 U/L (120-246); Potassium 3.9 mmol/L (3.4-5.0); Sodium 140 mmol/L (137-145)
--- OUTSIDE RECORDS SUMMARY | 2024-07-21 07:32 | XMS_ITS | Clinical Summary ---
Author Organization [facility] Address [address] [place] [address] Care Team Providers Care Sand Molder Name Role Phone Unavailable Primary Care Provider [...]
--- OUTSIDE RECORDS SUMMARY | 2024-07-21 07:32 | XMS_ITS | Encounter Summary ---
Author Organization [facility] Healthcare Address [address] [place] [address] Care Team Providers Care Critical Care Physician Assistant Name Role Phone Kraig Ching MD Primary Care Provider [phone] Gautam Cope MD Unavailable Tramaine Roe MD Unavailable [phone] Sukhwinder Uribe MD Unavailable [phone] Shay Guillermo MD Unavailable [phone] Marsha Landis RN Unavailable Unavailab le Encounter Details Date Type Department Care Team (Latest Contact Info) Description 07/19/2024 7:45 PM CDT - 07/19/2024 11:59 PM CDT Hospital Encounter [facility] [address] [place] [address] Urinary frequency Discharge Disposition: Discharge to home or self care Social History Tobacco Use Types Packs/Day Years Used Date Smoking Tobacco: Former Cigarettes 0.3 52 1 958 - 2009 Passive Smoke Exposure: Past Smokeless Tobacco: Never Comments:Smoking History Pac ks/day: 10 Cigarettes Alcohol Use Standard Drinks/Week Comments Yes 0 (1 standard drink = 0.6 oz pur e alcohol) Occasional glass of wine. [facility] Utilities Answer Date Recorded In the past 12 months has [employer], gas, oil, or water company threatened to [...] often do you attend chur ch or oriental orthodox services? Never 04/04/2024 Do you belong to any clubs o r organizations such as latter-day groups, unions, fraternal or athletic groups, or [...] any time in the past 12 m [facility], were you homeless or living [...] file Legal Sex Male 4:46 PM OPEN WINDER Gender Identity Not on file Sexual [...] Routine Urinary frequency 07/19/2024 12:00 PM CDT documented as of this encounter Goals Goal Patient Goal Type Associated Problems Recent Progress Patient-Stated? Author ZAK General Goal - Patient establishes care with [facility] Care Management On track(2023 1:22 PM OPEN WINDER) No Clarissa Luna RN Note: Problem: Lack of [facility] communication Interventions: - Provide coordination between [facility] company and patient. - Ensure [facility] has appropriate referral and orders to establish care with patient. - Follow up with patient to ensure initial visit was completed by [facility] and that a [facility] plan has been started. [facility] General Goal - Patient schedules and keeps appointments with all recommended providers O Care Management Improving( 1:22 PM OPEN WINDER) No Clarissa Luna RN Note: Problem: Potential [...] Name Priority Date/Time Associated Diagnosis Comments URINE CULTURE Routine 07/19/2024 12:00 PM CDT Urinary frequency documented in this encounter Visit Diagnoses Diagnosis Urinary frequency documented in this encounter Care Teams Critical Care Physician Assistant Relationship Specialty Start Date End Date Kraig Ching MD [address] [place] [address] PCP - General 07/10/16 Gautam Cope MD [address] [place] [address] Medical Oncologist/Theatre Program Director Medical Oncology 08/18/18 Tramaine Reo MD [address] [facility] [address] [place] [address] Referring Physician Urology 08/18/18 Sukhwinder Uribe MD [address] [facility] [address] [place] [address] Consulting Physician Urology 08/18/18 Shay Guillermo MD [address] [facility] [address] [place] [address] Referring Physician Urology 08/18/18 Marsha Landis, RN Registered Nurse 11/17/18 documented as of this encounter
--- NOTE | 2024-07-21 07:33 | ED_ITS ---
HPI - General Adult General Chief complaint: Extremity Injury, Upper Stated complaint: hand swelling Time Seen by Provider: 07/21/24 07:02 History of Present Illness HPI narrative: This is an 83-year-old male presenting ED with chief complaint of hand swelling. Patient sustained 2 skin tears on his right hand several days ago. 1-2 days after that he is sore developed redness swelling and pain to his hand. He is now having pain movement. Associated symptoms include nausea without vomiting, and general malaise although that is not uncommon for her number. He denies fevers chills chest pain abdominal pain urinary symptoms or diarrhea. Related Data Home Medications ?Medication ?Instructions ?Recorded ?Confirmed ?Last Taken ?Type amlodipine 2.5 mg tablet (Norvasc) 2.5 mg PO DAILY 06/19/22 03/31/24 Unknown History insulin aspart U-100 100 unit/mL 8 unit subcut TID 06/19/22 03/31/24 08/02/23 History (3 mL) subcutaneous pen (Novolog FlexPen U-100 Insulin aspart) insulin glargine 100 unit/mL (3 28 unit subcut QHS 06/19/22 03/31/24 08/02/23 History mL) subcutaneous pen (Lantus Solostar U-100 Insulin) oxycodone 5 mg tablet 5 mg PO PRN PRN Pain 06/19/22 03/31/24 Unknown History pantoprazole 40 mg tablet,delayed 40 mg PO DAILY 06/19/22 03/31/24 08/02/23 History release abiraterone 250 mg tablet 1,000 mg PO HS 03/26/24 03/26/24 Unknown History carvedilol 12.5 mg tablet 12.5 mg PO Q12H 03/26/24 03/26/24 Unknown History chlorthalidone 25 mg tablet 25 mg PO DAILY 03/26/24 03/26/24 Unknown History dorzolamide 22.3 mg-timolol 6.8 1 drp EACH EYE Q12H 03/26/24 03/26/24 Unknown History mg/mL eye drops fluoride (sodium) 1.1 % dental 1 applic dental Q24H 03/26/24 03/26/24 Unknown History cream (PreviDent 5000 Plus) insulin aspart U-100 100 unit/mL 1 sliding scale dose subcut TID 03/26/24 03/26/24 Unknown History (3 mL) subcutaneous pen (Novolog FlexPen U-100 Insulin aspart) insulin glargine 100 unit/mL (3 28 unit subcut QPM 03/26/24 03/26/24 Unknown History mL) subcutaneous pen (Lantus Solostar U-100 Insulin) lisinopril 20 mg tablet 40 mg PO DAILY 03/26/24 03/26/24 Unknown History oxycodone 5 mg tablet 5 mg PO Q6H PRN pain 03/26/24 03/26/24 Unknown History pravastatin 20 mg tablet 20 mg PO DAILY 03/26/24 03/26/24 Unknown History prednisone 5 mg tablet 5 mg PO Q12H 03/26/24 03/26/24 Unknown History sitagliptin phosphate 25 mg tablet 25 mg PO DAILY 03/26/24 03/26/24 Unknown History (Januvia) Allergies Allergy/AdvReac Type Severity Reaction Status Date / Time No Known Drug Allergies Allergy Unknown Other Verified 07/20/24 20:04 REPLACED BY [facility] Past Medical History Medical History Esophageal ulcer Chronic kidney disease, stage 3 Paroxysmal atrial fibrillation Gastroesophageal reflux disease 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 Hyperlipidemia Hypertension Type 2 diabetes mellitus Surgical History Surgical History History of prostatectomy History of cholecystectomy Family History Family History Mother Kidney failure Father Alzheimer's dementia Other Alzheimers disease Kidney disease Social History Social History Years smoked: 65 Smoking status: Current every day smoker Second hand tobacco smoke exposure: Yes Alcohol intake: current Drinks per week: 4 Substance use: current Substance use type: marijuana Last use: 07/30/2023 Do You Feel Safe in your Home?: Yes Lack of Transportation: No Lack of Food: Never True Current Housing: I Have Housing Concerned About Future Housing: No Difficulty Paying Gas/Electric Bills: No Difficulty Paying for Meds: No Currently Unemployed: No Education: Master's Degree or Higher Difficulty w/ Childcare or Family Care: No Spiritual care concerns: No Exam 2 Narrative: APPEARANCE: No apparent distress. Head: atraumatic. EYES: EOMI, NOSE: Atraumatic NECK: Trachea midline RESPIRATORY: No increased rate of breathing CARDIOVASCULAR: RRR, ABDOMINAL: Non-distended MUSCULOSKELETAl: No obvious deformities NEURO: Alert. Moving 4/4 extremities SKIN:: Focal exam of the right hand showed 2 skin tears, 1 over the knuckle and 1 over the dorsum of the wrist. The skin is red/hot to touch. Pain with active passive range of motion fingers. PSYCHIATRIC: Normal affect Course Vital Signs Vital signs: Vital Signs Temperature 98.3 F 07/21/24 06:34 Pulse Rate 92 07/21/24 06:34 Respiratory Rate 20 07/21/24 06:34 Blood Pressure 135/73 07/21/24 06:34 Pulse Oximetry 96 07/21/24 06:34 Oxygen Delivery Room Air 07/21/24 06:34 Temperature 98.3 F 07/21/24 06:34 Pulse Rate 79 07/21/24 08:03 Respiratory Rate 20 07/21/24 08:03 Blood Pressure 133/66 07/21/24 08:03 Pulse Oximetry 95 07/21/24 08:03 Oxygen Delivery Room Air 07/21/24 06:34 Medical Decision Making MDM Narrative Medical decision making narrative: -Course: 83-year-old male presenting with right hand swelling after sustaining several small skin tears. Presentation consistent with cellulitis. White count is elevated 16.2. Heart rate > 90. Patient meets sepsis criteria. Given 30 cc/kilogram bolus lactated Ringer's. Started on vancomycin. Patient will be admitted for abx. -DDX includes but is not limited to: Cellulitis, extremity DVT, inflammatory arthritis -Co-morbidities complicating care: Metastatic prostate cancer Vital Signs Vital Signs: Vital Signs Temperature 98.3 F 07/21/24 06:34 Pulse Rate 92 07/21/24 06:34 Respiratory Rate 20 07/21/24 06:34 Blood Pressure 135/73 07/21/24 06:34 Pulse Oximetry 96 07/21/24 06:34 Oxygen Delivery Room Air 07/21/24 06:34 Temperature 98.3 F 07/21/24 06:34 Pulse Rate 79 07/21/24 08:03 Respiratory Rate 20 07/21/24 08:03 Blood Pressure 133/66 07/21/24 08:03 Pulse Oximetry 95 07/21/24 08:03 Oxygen Delivery Room Air 07/21/24 06:34 Lab Data 07/21/24 06:49 07/21/24 06:49 Labs: Lab Results 07/21/24 07/21/24 07/21/24 Range/Units 06:49 07:47 07:59 WBC 16.2 H (4.5-10.0) K/mm3 RBC 4.42 L (4.6-6.20) M/mm3 Hgb 12.3 L (14.0-18.0) g/dL Hct 39.8 L (42.0-52.0) % MCV 90.0 (80-100) fl MCH 27.8 (26-34) pg MCHC 30.9 L (32-36) g/dl RDW 14.1 (11.5-14.5) % Plt Count 325 (150-375) k/mm3 MPV 9.7 (7.4-10.4) fl Immature Gran % (Auto) 1.0 H (0-0.5) % Neut % (Auto) 79.5 H (45.5-73.1) % Lymph % (Auto) 8.8 L (18.3-44.2) % [place] % (Auto) 9.4 H (2.6-8.5) % Eos % (Auto) 0.9 (0-4.4) % Baso % (Auto) 0.4 (0.2-1.2) % Lymph # (Auto) 1.42 (0.9-3.2) K/mm3 [place] # (Auto) 1.5 H (0.1-0.6) K/mm3 Eos # (Auto) 0.1 (0-0.3) K/mm3 Baso # (Auto) 0.1 (0.0-0.1) K/mm3 Abs Immat Gran (auto) 0.17 H (0.00-0.031) K/mm3 Absolute Neuts (auto) 12.9 H (1.3-6.7) K/mm3 Absolute Nucleated RBC 0.000 (0.0-0.012) K/mm3 Nucleated RBC % 0.0 (0.0-0.2) % Sodium 140 (137-145) mmol/L Potassium 3.9 (3.4-5.0) mmol/L Chloride 102 (98-107) mmol/L Carbon Dioxide 25 (22-30) mmol/L Anion Gap 13 H (4-12) mmol/L BUN 43 H (9-20) mg/dL Creatinine 2.54 H (0.7-1.3) mg/dL Estim Creat Clear Calc 21 ml/min Estimated GFR 24 L (59 - ) Glucose 161 H (65-110) mg/dL Lactic Acid 1.1 (0.7-2.0) mmol/L Calcium 9.0 (8.4-10.2) mg/dL Total Bilirubin 1.2 (0.2-1.3) mg/dL AST 16 L (17-59) U/L ALT 13 (6-50) U/L Alkaline Phosphatase 120 (38-126) U/L Lactate Dehydrogenase 154 (120-246) U/L Total Protein 7.0 (6.3-8.2) g/dL Albumin 3.9 (3.5-5.1) g/dL Urine Color (Yellow) Urine Appearance (Clear) Urine pH (5.0-9.0) Ur Specific [place] (1.001-1.035) Urine Protein (Negative) mg/dL Urine Glucose (UA) (Negative) mg/dL Urine Ketones (Negative) mg/dL Ur Blood (Man) (Negative) Urine Nitrate (Negative) Urine Bilirubin (Negative) Urine Urobilinogen (<2.0) mg/dL Leukocyte Esterase Rfl (Negative) NADYA/UL Urine RBC (0-2) /hpf Urine WBC (0-3) /hpf Ur Squamous Epith Cells (Few) /hpf Urine Bacteria /hpf Urine Casts Nasal MRSA (PCR) Pending Influenza A (RT-PCR) Negative (Negative) Influenza B (RT-PCR) Negative (Negative) RSV (RT-PCR) Negative (Negative) SARS-CoV-2 RNA (RT-PCR) Negative (Negative) 07/21/24 Range/Units 08:35 WBC (4.5-10.0) K/mm3 RBC (4.6-6.20) M/mm3 Hgb (14.0-18.0) g/dL Hct (42.0-52.0) % MCV (80-100) fl MCH (26-34) pg MCHC (32-36) g/dl RDW (11.5-14.5) % Plt Count (150-375) k/mm3 MPV (7.4-10.4) fl Immature Gran % (Auto) (0-0.5) % Neut % (Auto) (45.5-73.1) % Lymph % (Auto) (18.3-44.2) % [place] % (Auto) (2.6-8.5) % Eos % (Auto) (0-4.4) % Baso % (Auto) (0.2-1.2) % Lymph # (Auto) (0.9-3.2) K/mm3 [place] # (Auto) (0.1-0.6) K/mm3 Eos # (Auto) (0-0.3) K/mm3 Baso # (Auto) (0.0-0.1) K/mm3 Abs Immat Gran (auto) (0.00-0.031) K/mm3 Absolute Neuts (auto) (1.3-6.7) K/mm3 Absolute Nucleated RBC (0.0-0.012) K/mm3 Nucleated RBC % (0.0-0.2) % Sodium (137-145) mmol/L Potassium (3.4-5.0) mmol/L Chloride (98-107) mmol/L Carbon Dioxide (22-30) mmol/L Anion Gap (4-12) mmol/L BUN (9-20) mg/dL Creatinine (0.7-1.3) mg/dL Estim Creat Clear Calc ml/min Estimated GFR (59 - ) Glucose (65-110) mg/dL Lactic Acid (0.7-2.0) mmol/L Calcium (8.4-10.2) mg/dL Total Bilirubin (0.2-1.3) mg/dL AST (17-59) U/L ALT (6-50) U/L Alkaline Phosphatase (38-126) U/L Lactate Dehydrogenase (120-246) U/L Total Protein (6.3-8.2) g/dL Albumin (3.5-5.1) g/dL Urine Color Yellow (Yellow) Urine Appearance Clear (Clear) Urine pH 6.0 (5.0-9.0) Ur Specific [place] 1.011 (1.001-1.035) Urine Protein 2+ H (Negative) mg/dL Urine Glucose (UA) Negative (Negative) mg/dL Urine Ketones Trace H (Negative) mg/dL Ur Blood (Man) Negative (Negative) Urine Nitrate Negative (Negative) Urine Bilirubin Negative (Negative) Urine Urobilinogen 0.2 (<2.0) mg/dL Leukocyte Esterase Rfl Negative (Negative) NADYA/UL Urine RBC 0-2 (0-2) /hpf Urine WBC 0-5 (0-3) /hpf Ur Squamous Epith Cells None seen (Few) /hpf Urine Bacteria None seen /hpf Urine Casts 3-5 Nasal MRSA (PCR) Influenza A (RT-PCR) (Negative) Influenza B (RT-PCR) (Negative) RSV (RT-PCR) (Negative) SARS-CoV-2 RNA (RT-PCR) (Negative) Discharge Plan Discharge Clinical Impression: SIRS (systemic inflammatory response syndrome), Cellulitis Patient Disposition: Still a Patient Condition: Stable Patient Language: Lithuanian Prescriptions: No Action amlodipine [Norvasc] 2.5 mg tablet 2.5 mg PO DAILY MDD 2.5bg per 4ozen [id number] pantoprazole 40 mg tablet,delayed release (DR/EC) 40 mg PO DAILY oxycodone 5 mg tablet 5 mg PO PRN PRN (Reason: Pain) insulin aspart U-100 [Novolog FlexPen U-100 Insulin] 100 unit/mL (3 mL) insulin pen 8 unit SUBCUT TID Protocol: Insulin Corrective Low-Dose Condition: glucose < 70 mg/dl Dose/Route: Follow Hypoglycemia Order Condition: glucose 70-200 mg/dl Dose/Route: No additional insulin Condition: glucose 201-250 mg/dl Dose/Route: 2 units sub-Q Condition: glucose 251-300 mg/dl Dose/Route: 3 units sub-Q Condition: glucose 301-350 mg/dl Dose/Route: 4 units sub-Q Condition: glucose 351-400 mg/dl Dose/Route: 5 units sub-Q Condition: glucose > 400 mg/dl Dose/Route: Call MD Protocol Text: *No Correction Dose at Bedtime* Rx Instructions: Pt states he takes for glucose level 175 or higher. insulin glargine [Lantus Solostar U-100 Insulin] 100 unit/mL (3 mL) insulin pen 28 unit subcut QHS Rx Instructions: Pt states he holds medication if glucose levels under 140. albuterol sulfate 90 mcg/actuation HFA aerosol inhaler 2 puff inhalation QID PRN (Reason: shortness of breath or wheezing) Qty: 8.5 2RF acetaminophen 500 mg tablet 1,000 mg PO TID PRN (Reason: pain) 7 Days Qty: 42 0RF albuterol sulfate [Ventolin HFA] 90 mcg/actuation HFA aerosol inhaler 1 inh inhalation QID Qty: 8.5 0RF abiraterone 250 mg tablet 1,000 mg PO HS carvedilol 12.5 mg tablet 12.5 mg PO Q12H lisinopril 20 mg tablet 40 mg PO DAILY chlorthalidone 25 mg tablet 25 mg PO DAILY dorzolamide-timolol 22.3-6.8 mg/mL drops 1 drp EACH EYE Q12H fluoride (sodium) [PreviDent 5000 Plus] 1.1 % cream 1 applic dental Q24H oxycodone 5 mg tablet 5 mg PO Q6H PRN (Reason: pain) prednisone 5 mg tablet 5 mg PO Q12H pravastatin 20 mg tablet 20 mg PO DAILY Januvia 25 mg tablet 25 mg PO DAILY insulin aspart U-100 [Novolog FlexPen U-100 Insulin] 100 unit/mL (3 mL) insulin pen 1 sliding scale dose SUBCUT TID insulin glargine [Lantus Solostar U-100 Insulin] 100 unit/mL (3 mL) insulin pen 28 unit SUBCUT QPM amoxicillin-pot clavulanate 875-125 mg tablet 1 tablet PO Q12H Qty: 6 0RF Follow-up/Referrals: Jeane,Kraig Fernandez MD [Primary Care Provider] -
--- OUTSIDE RECORDS SUMMARY | 2024-07-21 07:33 | XMS_ITS ---
Author Organization [facility] Address [address] [place] [address] Care Team Providers Care Production Potter Name Role Phone Kraig Ching MD Primary Care Provider [phone] Gautam Cope MD Unavailable Tramaine Roe MD Unavailable [phone] Sukhwinder Uribe MD Unavailable [phone] Shay Guillermo MD Unavailable [phone] Marsha Landis RN Unavailable Unavailab Active Problems Problem Noted Date Diagnosed Date Statin myopathy 06/08/2024 Essential hypertension 05/30/2024 Type 2 diabetes mellitus wit h stage 3b chronic kidney disease, with long-term current use of insulin 05/30/2024 Assessment & Plan (06/08/2024 4:46 AM FLOOR COVERING INSTALLER): Continue current regimen.Limit nephrotoxins.Reviewed creatinine. Avoid [...] 03/08/2023 Assessment & Plan (06/08/2024 4:46 AM FLOOR COVERING INSTALLER): Hypertension is controlled. Continue current regimen. Assessment & Plan (10/05/2023 12:54 PM CDT): Hypertension is controlled. Decrease carvedilol to 12.5 mg. Assessment & Plan (03/08/2023 7:11 AM FLOOR COVERING INSTALLER): Hypertension is controlled. Continue current regimen. 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 Avoid NSAIDS. Assessment & Plan (10/05/2023 5:50 AM CDT): Continue current regimen.Limit nephrotoxins.Reviewed creatinine. Avoid NSAIDS. Assessment & Plan (03/08/2023 7:12 AM FLOOR COVERING INSTALLER): Continue current regimen.Limit nephrotoxins.Reviewed creatinine. Avoid NSAIDS. CKD (chronic kidney disease) 03/08/2022 Assessment & Plan (06/08/2024 4:45 AM FLOOR COVERING INSTALLER): Limit nephrotoxins. Monitor creatinine. Avoid NSAIDS.Follow with Nephrology. 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 Continue PPI. Assessment & Plan (08/18/2022 6:36 AM CDT): Reviewed dietary modifications. Continue PPI. Assessment & Plan (02/12/2022 6:03 AM CDT): Reviewed dietary modifications. Continue PPI. Assessment & Plan (04/08/2021 5:55 AM FLOOR COVERING INSTALLER): Reviewed dietary modifications. Continue PPI. 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 Continue home PT exercises. Advised using a walker. Assessment & Plan (08/18/2022 11:47 AM CDT): Continue oxycodone. Continue home PT exercises. Advised using a walker. Assessment & Plan (02/12/2022 11:41 AM CDT): Continue oxycodone. Continue home PT exercises. A prescription for a walker. Assessment & Plan (04/08/2021 5:55 AM FLOOR COVERING INSTALLER): Continue oxycodone. Continue home PT exercises. Continue walker. Assessment & Plan (12/26/2020 10:48 AM CDT): Continue oxycodone. Script for walker. Assessment & Plan (09/26/2020 11:29 AM CDT): Continue ROM exercises and follow with Pain Management. Refill oxycodone as needed. Prostate cancer 09/06/2018 Assessment & Plan (06/08/2024 4:46 AM FLOOR COVERING INSTALLER): Follow with Oncology. Continue Zytiga. Assessment & [...] 01/25/2018 Assessment & Plan (03/07/2018 6:54 AM FLOOR COVERING INSTALLER): Hypertension is controlled. Continue current regimen. [...] creatinine. Assessment & Plan (04/08/2021 5:54 AM FLOOR COVERING INSTALLER): Hypertension is controlled. Continue current regimen.Limit [...] NSAIDS. Assessment & Plan (03/07/2018 6:55 AM FLOOR COVERING INSTALLER): Hypertension is controlled. Continue current regimen. Limit nephrotoxins. Monitor creatinine. Avoid NSAIDS. Assessment & Plan (11/25/2017 7:09 AM CDT): Limit nephrotoxins. Monitor creatinine. Avoid NSAIDS. Duodenal ulcer 11/25/2017 Assessment & Plan (11/25/2017 10:16 AM CDT): Reviewed GI note . Continue pantoprazole. Avoid NSAIDS. Refer for EGD. PAF (paroxysmal atrial fibrillation) 10/22/2017 Assessment & Plan (03/07/2018 6:54 AM FLOOR COVERING INSTALLER): Continue rate control. Continue anticoagualtion. Anticipate [...] NSAIDS. Assessment & Plan (03/07/2018 6:55 AM FLOOR COVERING INSTALLER): Limit nephrotoxins. Monitor creatinine. Avoid NSAIDS. [...] diet. Assessment & Plan (04/08/2021 10:17 AM FLOOR COVERING INSTALLER): Reviewed HgBA1C elevated at 10.6 on [...] therapy. Assessment & Plan (03/07/2018 6:57 AM FLOOR COVERING INSTALLER): Continue pravastatin. He had myalgias on [...] diet. Assessment & Plan (03/02/2017 6:53 AM FLOOR COVERING INSTALLER): Hypertension is controlled. Continue current regimen. Reviewed low sodium diet. Assessment & Plan (01/15/2017 6:44 AM CDT): Reviewed proper diet. Continue statin therapy. Hyperlipidemia 01/12/2012 Assessment & Plan (06/08/2024 4:46 AM FLOOR COVERING INSTALLER): Continue pravastatin. Order lipid panel at next [...] 05/28/2023 Assessment & Plan (03/08/2023 11:40 AM FLOOR COVERING INSTALLER): Agree with cataract surgery. He has [...] 08/30/2017 Assessment & Plan (03/02/2017 10:48 AM FLOOR COVERING INSTALLER): Mood is improved. Monitor off medication. [...] 200. Assessment & Plan (03/07/2018 6:56 AM FLOOR COVERING INSTALLER): Continue current regimen. Advised annual eye exam.Limit nephrotoxins. Monitor creatinine. Avoid NSAIDS. Assessment & Plan (11/25/2017 10:16 AM CDT): Continue current regimen and add Januvia.Advised annual eye exam. Limit nephrotoxins. Monitor creatinine. Avoid NSAIDS. Assessment & Plan (01/15/2017 6:44 AM CDT): Continue current regimen. Advised annual eye exam. Reviewed proper diet. Continue statin therapy.
--- OUTSIDE RECORDS SUMMARY | 2024-07-21 07:33 | XMS_ITS | Referral Summary ---
Author Organization [facility] Address [address] [place] [address] Care Team Providers Care Cigar Head Pegger Name Role Phone Kraig Ching MD Primary Care Provider [phone] Gautam Cope MD Unavailable Tramaine Roe MD Unavailable [phone] Sukhwinder Uribe MD Unavailable Shay Guillermo MD Unavailable Marsha Landis RN Unavailable Unavailab le Encounters Date Type Department Care Team Description 07/19/2024 7:45 PM CDT - 07/19/2024 11:59 PM CDT Hospital Encounter [facility] [address] [place], [place] [id number] Urinary frequency Discharge Disposition: Discharge to home or self care 07/19/2024 2:00 PM CDT Office Visit [facility] Medical [facility] at [address] [phone] Clau Childers PA Urinary frequency (Primary Dx); Leukocytosis, unspecified type 07/18/2024 Patient Self-Triage [facility] HealthCare/ Physicians [address] [place] [address] Mychart, Generic Provider 07/18/2024 1:00 PM CDT Office Visit [facility] Oncology [address] [facility] Floor 5 [place] [address] Gautam Cope MD Prostate cancer (HCC) (Primary Dx) 07/18/2024 12:00 PM CDT Lab [facility] [address] Floor 5 [place] [address] Prostate cancer (HCC) 07/18/2024 1:45 PM CDT Infusion [facility] [address] Floor 6 [place] [address] Prostate cancer (HCC) (Primary Dx) 07/01/2024 Orders Only [facility] Health Information Management [address] [place] [id number] Scanning, Provider 06/14/2024 6:15 PM CARGO HANDLER Lab [facility] [address] [place] [phone] GABRIELA (acute kidney injury) 06/14/2024 3:00 PM CARGO HANDLER Office Visit [facility] Nephrology [address] [place] [address] 5th [place] [address] Lin Guerrero MD Chronic kidney disease, stage 3b (HCC) (Primary Dx); GABRIELA (acute kidney injury); Hypertension, essential; Secondary hyperparathyroidism of renal origin 06/08/2024 12:00 PM CARGO HANDLER Lab [facility] ([facility]) [address] [place] [phone] 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 chronic kidney disease (HCC); Hypertension, essential; Secondary hyperparathyroidism of renal origin; Stage 3 chronic kidney disease, unspecified whether stage 3a or 3b CKD (HCC); Primary hypertension; Vitamin D deficiency; Type 2 diabetes mellitus with stage 3a chronic kidney disease, with long-term current use of insulin (HCC); Fatigue, unspecified type; GABRIELA (acute kidney injury) 06/08/2024 9:45 AM CARGO HANDLER Office Visit [facility] [address] [facility] [address] [place] [phone] Kraig Ching MD Hypertension, essential (Primary Dx); Prostate cancer (HCC); Type 2 diabetes mellitus with stage 3b chronic kidney disease, with long-term current use of insulin (HCC); Stage 3b chronic kidney disease (HCC); Hyperlipidemia, unspecified hyperlipidemia type 05/24/2024 Orders Only [facility] Nephrology [address] [place] [address] [place] [address] [place] [address] Lin Guerrero MD 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 [...] type; GABRIELA (acute kidney injury) 05/02/[address] [address] Kraig Ching MD Medical Question/Miscellaneous 04/28/[address] [place] [address] Stef Roman NP 04/28/2024 Orders Only [address] [place] [address] Stef Roman NP 04/25/2024 11:45 AM CARGO HANDLER Infusion [facility] [address] [address] Prostate cancer (HCC) (Primary Dx) 04/25/2024 9:45 AM CARGO HANDLER Lab [facility] [address] [place] [address] Prostate cancer (HCC) 04/25/2024 10:45 AM CARGO HANDLER Office Visit [facility] Oncology [address] [facility] Floor [address] [place] [phone] Gautam Cope MD Prostate cancer (HCC) 04/24/[address] [place] [address] Daquan George MD 04/24/2024 11:50 AM CARGO HANDLER Clinical Support [address] [place] [phone] Age-related osteoporosis without current pathological fracture (Primary Dx) 04/24/2024 12:20 PM CARGO HANDLER [facility] Visit [facility] [address] [facility] 5th [place] [address] [place] [phone] Daquan George MD Age-related osteoporosis without current [...] 05/30/2024 Assessment & Plan (06/08/2024 4:46 AM CARGO HANDLER): Continue current regimen.Limit nephrotoxins.Reviewed creatinine. Avoid NSAIDS. [...] 03/08/2023 Assessment & Plan (06/08/2024 4:46 AM CARGO HANDLER): Hypertension is controlled. Continue current regimen. Assessment & Plan (10/05/2023 12:54 PM CDT): Hypertension is controlled. Decrease carvedilol to 12.5 mg. Assessment & Plan (03/08/2023 7:11 AM CARGO HANDLER): Hypertension is controlled. Continue current regimen. 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 Avoid NSAIDS. Assessment & Plan (10/05/2023 5:50 AM CDT): Continue current regimen.Limit nephrotoxins.Reviewed creatinine. Avoid NSAIDS. Assessment & Plan (03/08/2023 7:12 AM CARGO HANDLER): Continue current regimen.Limit nephrotoxins.Reviewed creatinine. Avoid NSAIDS. CKD (chronic kidney disease) 03/08/2022 Assessment & Plan (06/08/2024 4:45 AM CARGO HANDLER): Limit nephrotoxins. Monitor creatinine. Avoid NSAIDS.Follow with Nephrology. 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 chronic kidney disease 2021 Gastroesophageal reflux disease 04/08/2021 Assessment & Plan (03/08/2023 11:17 AM CARGO HANDLER): Reviewed dietary modifications. Continue PPI. Assessment & Plan (08/18/2022 6:36 AM CDT): Reviewed dietary modifications. Continue PPI. Assessment & Plan (02/12/2022 6:03 AM CDT): Reviewed dietary modifications. Continue PPI. Assessment & Plan (04/08/2021 5:55 AM CARGO HANDLER): Reviewed dietary modifications. Continue PPI. 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 Continue home PT exercises. Advised using a walker. Assessment & Plan (08/18/2022 11:47 AM CDT): Continue oxycodone. Continue home PT exercises. Advised using a walker. Assessment & Plan (02/12/2022 11:41 AM CDT): Continue oxycodone. Continue home PT exercises. A prescription for a walker. Assessment & Plan (04/08/2021 5:55 AM CARGO HANDLER): Continue oxycodone. Continue home PT exercises. Continue walker. Assessment & Plan (12/26/2020 10:48 AM CDT): Continue oxycodone. Script for walker. Assessment & Plan (09/26/2020 11:29 AM CDT): Continue ROM exercises and follow with Pain Management. Refill oxycodone as needed. Prostate cancer 09/06/2018 Assessment & Plan (06/08/2024 4:46 AM CARGO HANDLER): Follow with Oncology. Continue Zytiga. Assessment & [...] 01/25/2018 Assessment & Plan (03/07/2018 6:54 AM CARGO HANDLER): Hypertension is controlled. Continue current regimen. CHF [...] creatinine. Assessment & Plan (04/08/2021 5:54 AM CARGO HANDLER): Hypertension is controlled. Continue current regimen.Limit nephrotoxins. [...] NSAIDS. Assessment & Plan (03/07/2018 6:55 AM CARGO HANDLER): Hypertension is controlled. Continue current regimen. Limit nephrotoxins. Monitor creatinine. Avoid NSAIDS. Assessment & Plan (11/25/2017 7:09 AM CDT): Limit nephrotoxins. Monitor creatinine. Avoid NSAIDS. Duodenal ulcer 11/25/2017 Assessment & Plan (11/25/2017 10:16 AM CDT): Reviewed GI note . Continue pantoprazole. Avoid NSAIDS. Refer for EGD. PAF (paroxysmal atrial fibrillation) 10/22/2017 Assessment & Plan (03/07/2018 6:54 AM CARGO HANDLER): Continue rate control. Continue anticoagualtion. Anticipate starting [...] NSAIDS. Assessment & Plan (03/07/2018 6:55 AM CARGO HANDLER): Limit nephrotoxins. Monitor creatinine. Avoid NSAIDS. Assessment [...] diet. Assessment & Plan (04/08/2021 10:17 AM CARGO HANDLER): Reviewed HgBA1C elevated at 10.6 on 04/01/21. [...] therapy. Assessment & Plan (03/07/2018 6:57 AM CARGO HANDLER): Continue pravastatin. He had myalgias on other [...] diet. Assessment & Plan (03/02/2017 6:53 AM CARGO HANDLER): Hypertension is controlled. Continue current regimen. Reviewed low sodium diet. Assessment & Plan (01/15/2017 6:44 AM CDT): Reviewed proper diet. Continue statin therapy. Hyperlipidemia 01/12/2012 Assessment & Plan (06/08/2024 4:46 AM CARGO HANDLER): Continue pravastatin. Order lipid panel at next [...] 05/28/2023 Assessment & Plan (03/08/2023 11:40 AM CARGO HANDLER): Agree with cataract surgery. He has 1st [...] 08/30/2017 Assessment & Plan (03/02/2017 10:48 AM CARGO HANDLER): Mood is improved. Monitor off medication. Impotence [...] 200. Assessment & Plan (03/07/2018 6:56 AM CARGO HANDLER): Continue current regimen. Advised annual eye exam.Limit [...] 01/17/2019 Influenza, Unspecified 01/17/2019(Deferred: Daisy ent Refused) [facility] ([facility]) SARS-CoV-2 Vaccination 06/14/2020, 06/14/2020 Pfizer SARS-CoV-2 [...] pur e alcohol) Occasional glass of wine. [facility] Utilities Answer Date Recorded In [...] often do you attend chur ch or mosque services? Never 04/04/2024 Do you belong to [...] on file Legal Sex Male 4:46 PM CARGO HANDLER Gender Identity Not on file Sexual Orientation [...] cm (5' 9 ) 06/14/2024 2:58 PM CARGO HANDLER Body Mass Index 29.98 06/14/2024 2:58 PM CARGO HANDLER Plan of Treatment Not on file Goals Goal Patient Goal Type Associated Problems Recent Progress Patient-Stated? Author ZAK General Goal - Patient establishes care with [facility] ACO Care Management On track(2023 1:22 PM CARGO HANDLER) Clarissa Arana RN Note: Problem: Lack of [facility] communication Interventions: - Provide coordination between [facility] company and patient. - Ensure [facility] has appropriate referral and orders to establish care with patient. - Follow up with patient to ensure initial visit was completed by [facility] and that a [facility] plan has been started. ZAK General Goal - Patient schedules and keeps appointments with all recommended providers ACO Care Management Improving( 1:22 PM CARGO HANDLER) Clarissa Arana RN Note: Problem: Potential for [...] medication regimen. Medical Devices Implanted Type Area Cake Icer And Packer Device Identifier Shelf Expiration Date Model / Serial / Lot [employer] Lens Iol Cna0t0.195 Clareon [employer]va Autonom Cna0t0.195 - [id number] - [id number] Implanted:Qty: 1 on 06/09/2023 by Higinio Connolly MD at [facility] Lens Right: Eye [employer] [id number] 10/27/2025 CNA0T0.19 5 / [id number] / [employer] Lens Iol Cna0t0.200 [employer]onom Cna0t0.200 - [id number] - [id number] Implanted:Qty: 1 on 05/19/2023 by Higinio Connolly MD at [facility] Left: Eye [employer] [id number] 10/06/2025 CNA0T0.20 0 / [id number] / Procedures Procedure Name Priority Date/Time Associated Diagnosis Comments POCT URINALYSIS DIPSTICK Routine 07/19/2024 2:16 PM CDT Urinary frequency URINE CULTURE Routine 07/19/2024 12:00 PM CDT Urinary frequency EGFR STAT 07/18/2024 [...] AM CDT EGFR Routine 06/14/2024 3:48 PM CARGO HANDLER GABRIELA (acute kidney injury) RENAL FUNCTION PANEL Routine 06/14/2024 3:48 PM CARGO HANDLER GABRIELA (acute kidney injury) URINALYSIS AND REFLEX TO MICROSCOPIC Routine 06/08/2024 10:47 AM CARGO HANDLER 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 chronic kidney disease (HCC) Hypertension, essential Secondary hyperparathyroidism of renal origin Stage 3 chronic kidney disease, unspecified whether stage 3a or 3b CKD (HCC) Primary hypertension Vitamin D deficiency Type 2 diabetes mellitus with stage 3a chronic kidney disease, with long-term current use of insulin (HCC) Fatigue, unspecified type GABRIELA (acute kidney injury) EGFR Routine 06/08/2024 10:44 AM CARGO HANDLER 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 chronic kidney disease (HCC) Hypertension, essential Secondary hyperparathyroidism of renal origin Stage 3 chronic kidney disease, unspecified whether stage 3a or 3b CKD (HCC) Primary hypertension Vitamin D deficiency Type 2 diabetes mellitus with stage 3a chronic kidney disease, with long-term current use of insulin (HCC) Fatigue, unspecified type GABRIELA (acute kidney injury) DIFFERENTIAL AUTO Routine 06/08/2024 10:44 AM CARGO HANDLER 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 chronic kidney disease [...] RENAL FUNCTION PANEL Routine 06/08/2024 10:44 AM CARGO HANDLER 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 chronic kidney disease [...] D 25 HYDROXY Routine 06/08/2024 10:44 AM CARGO HANDLER 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 chronic kidney disease [...] WITH AUTO DIFFERENTIAL Routine 06/08/2024 10:44 AM CARGO HANDLER 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 chronic kidney disease (HCC) Hypertension, essential Secondary hyperparathyroidism of renal origin Stage 3 chronic kidney disease, unspecified whether stage 3a or 3b CKD (HCC) Primary hypertension Vitamin D deficiency Type 2 diabetes mellitus with stage 3a chronic kidney disease, with long-term current use of insulin (HCC) Fatigue, unspecified type GABRIELA (acute kidney injury) PTH Routine 06/08/2024 10:44 AM CARGO HANDLER 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 chronic kidney disease [...] RATIO, URINE, RANDOM Routine 06/08/2024 10:44 AM CARGO HANDLER 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 chronic kidney disease (HCC) Hypertension, essential Secondary hyperparathyroidism of renal origin Stage 3 chronic kidney disease, unspecified whether stage 3a or 3b CKD (HCC) Primary hypertension Vitamin D deficiency Type 2 diabetes mellitus with stage 3a chronic kidney disease, with long-term current use of insulin (HCC) Fatigue, unspecified type GABRIELA (acute kidney injury) EGFR STAT 04/25/2024 9:45 AM CARGO HANDLER Prostate cancer (HCC) VITAMIN D 25 HYDROXY Routine 04/25/2024 9:45 AM CARGO HANDLER Prostate cancer (HCC) TOTAL TESTOSTERONE Routine 04/25/2024 9:45 AM CARGO HANDLER Prostate cancer (HCC) HEMOGLOBIN A1C Routine 04/25/2024 9:45 AM CARGO HANDLER Prostate cancer (HCC) VITAMIN B12 Routine 04/25/2024 9:45 AM CARGO HANDLER Prostate cancer (HCC) LACTATE DEHYDROGENASE Routine 04/25/2024 9:45 AM CARGO HANDLER Prostate cancer (HCC) COMPREHENSIVE METABOLIC PANEL STAT 04/25/2024 9:45 AM CARGO HANDLER Prostate cancer (HCC) PSA DIAGNOSTIC Routine 04/25/2024 9:45 AM CARGO HANDLER Prostate cancer (HCC) DIFFERENTIAL AUTO Routine 04/25/2024 9:40 AM CARGO HANDLER Prostate cancer (HCC) CBC WITH AUTO DIFFERENTIAL Routine 04/25/2024 9:40 AM CARGO HANDLER Prostate cancer (HCC) DEXA TBS AXIAL SKELETON BONE DENSITY 1 OR MORE SITES Schedule Routine, Read Routine (OP Routine) 04/24/2024 11:56 AM CARGO HANDLER Age-related osteoporosis without current pathological fracture LIPID PANEL Routine 03/08/2023 11:55 AM CARGO HANDLER Hyperlipidemia, unspecified hyperlipidemia type ALBUMIN CREATININE RATIO, URINE Routine 01/01/2023 10:40 AM CDT Type 2 diabetes mellitus with stage 3a chronic kidney disease, with long-term current use of insulin ([facility]) DIABETES EYE EXAM Routine 06/29/2018 from Last 3 Months or Most Recently Relevant to Health Maintenance Results * (ABNORMAL) POCT urinalysis dipstick (07/19/2024 2:16 PM CDT) Color, Urine, POC Light Yellow Clarity, ur, POC Cloudy(A) Clear Glucose, ur, POC 100.(A) Negative MG/DL Bilirubin, ur, POC Negative Negative, Small, Moderate, Large Ketones, ur, POC Negative Negative Specific Naylor, POC 1.015 1.003 - 1.030 Blood, ur, POC Hemolyzed, trace(A) Negative pH, ur, POC 6.0 5.0 - 8.0 Protein, ur, POC 30.(A) Negative Urobilinogen, urine, POC 0.2 0.2 - 1.0 mg/dL Nitrite, ur, POC Negative Negative Leukocytes, ur, POC Negative Negative Lot Number [id number] Urine 07/19/2024 2:16 PM CDT Clau ESQUIVEL [...] MD LAB BLOOD ORDERABLES Final Resul t [facility] [place] [address] * (ABNORMAL) Differential, auto (07/18/2024 12:07 PM CDT) Neutrophil abs 17.55(H) 1.50 - 6.50 K/cumm Comment:Testing performed by : [facility]e [facility], [address] [place] [address] Lymphocyte abs 0.96 0.80 - 3.30 K/cumm [facility] Comment:Testing performed by : [facility], [address] [place] [phone] Monocyte abs 1.48(H) 0.20 - 0.80 K/cumm [facility] Comment:Testing performed by : [facility], [address] [place] [phone] Eosinophil abs 0.06 0.00 - 0.50 K/cumm [facility] Comment:Testing performed by : [facility], [address] [place] [phone] Basophil abs 0.03 0.00 - 0.10 K/cumm [facility] Comment:Testing performed by : [facility], [address] [place] [address] Neutrophil pct 87.4 % [facility] Comment: Interpretive Data Percent cell count reference ranges are not reported, since discordance with absolute values may lead to misinterpretation of CBC data. Current Interpretive Data was last revised on 2017. Testing performed by: [facility], [address] [place] [phone] Lymphocyte pct 4.8 % [facility] Comment: Interpretive Data Percent cell count reference ranges are not reported, since discordance with absolute values may lead to misinterpretation of CBC data. Current Interpretive Data was last revised on 2017. Testing performed by: [facility], [address] [place] [phone] Monocyte pct 7.4 % [facility] Comment: Interpretive Data Percent cell count reference ranges are not reported, since discordance with absolute values may lead to misinterpretation of CBC data. Current Interpretive Data was last revised on 2017. Testing performed by: [facility], [address] [place] [phone] Eosinophil pct 0.3 % [facility] Comment: Interpretive Data Percent cell count reference ranges are not reported, since discordance with absolute values may lead to misinterpretation of CBC data. Current Interpretive Data was last revised on 2017. Testing performed by: [facility], [address] [place] [phone] Basophil pct 0.2 % [facility] Comment: Interpretive Data Percent cell count reference ranges are not reported, since discordance with absolute values may lead to misinterpretation of CBC data. Current Interpretive Data was last revised on 2017. Testing performed by: [facility], [address] [place] [phone] Blood 07/18/2024 12:0 7 PM CDT 07/18/2024 12:22 PM CDT us Gautam Cope MD LAB BLOOD ORDERABLES Final Resul t [facility] [place] [address] * (ABNORMAL) CBC with auto differential (07/18/2024 12:07 PM CDT) WBC 20.09(H) 3.80 - 9.90 K/cumm Comment:Testing performed by : [facility], [address] [place] [address] Hgb 12.1(L) 13.0 - 17.5 g/dL [facility] Comment:Testing performed by : [facility], [address] [place], [place] [phone] Hct 38.2(L) 38.9 - 50.3 % [facility] Comment:Testing performed by : [facility], [address] [place] [address] Plt 451(H) 150 - 400 K/cumm [facility] Comment:Testing performed by : [facility], [address] [place] [address] MPV 7.7 6.8 - 10.4 fL [facility] Comment:Testing performed by : [facility], [address] [place], [place] [phone] RBC 4.46 4.30 - 5.80 M/cumm [facility] Comment:Testing performed by : [facility], [address] [place] [address] MCV 85.5 81.3 - 96.4 fL [facility] Comment:Testing performed by : [facility], [address] [place], [place] [phone] MCH 27.1 27.1 - 33.3 pg [facility] Comment:Testing performed by : [facility], [address] [place] [address] MCHC 31.7(L) 32.3 - 35.7 g/dL [facility] Comment:Testing performed by : [facility], [address] [place] [address] RDW CV 14.9 11.1 - 14.9 % [facility] Comment:Testing performed by : [facility], [address] [place] [address] NRBC abs 0.00 0.00 - 0.01 K/cumm [facility] Comment:Testing performed by : [facility], [address] [place] [address] Blood 07/18/2024 12:0 7 PM CDT 07/18/2024 12:22 PM CDT us Gautam Cope MD LAB BLOOD ORDERABLES Final Resul t Performing Organization Address [facility] Co de Phone Number [facility] [place] [address] * PSA diagnostic (07/18/2024 12:07 PM CDT) [...] Address [facility] de Phone Number [facility] [place] [address] * Lactate dehydrogenase (LD) (07/18/2024 12:07 PM CDT) Lactate dehydrogenase (LDH) 216 100 - 250 Units/L Blood 07/18/2024 12:0 7 PM CDT 07/18/2024 12:25 PM CDT Gautam Cope MD LAB BLOOD ORDERABLES Final Resul t Performing Organization Address [facility] Co de Phone Number [facility] [place] [address] * (ABNORMAL) Hemoglobin A1c (07/18/2024 12:07 PM CDT) Hgb A1C 8.0(H) 4.0 - 5.6 % Estimated Average Glucose 183 mg/dL [facility] Comment: The ADA recommends reporting an estimated [...] MD LAB BLOOD ORDERABLES Final Resul t [facility] [place] [address] * (ABNORMAL) Comprehensive metabolic panel (07/18/2024 12:07 PM CDT) Pathologist [facility] Sodium 142 135 - 145 mmol/L Potassium, pl 4.6 3.3 - 4.9 mmol/L [facility] Chloride 106 97 - 110 mmol/L [facility] CO2 24 22 - 32 mmol/L [facility] Anion gap 12 2 - 15 mmol/L [facility] BUN 52(H) 6 - 25 mg/dL [facility] Creatinine 2.66(H) 0.80 - 1.30 mg/dL [facility] Glucose 164 70 - 199 mg/dL [facility] Comment: Interpretive Data Fasting glucose >/= 126 [...] 2022. Calcium 9.0 8.5 - 10.3 mg/dL [facility] Bilirubin, total 0.5 0.1 - 1.2 mg/dL [facility] Protein, pl 6.7 6.5 - 8.5 g/dL [facility] Albumin 4.0 3.5 - 5.0 g/dL [facility] Alk phos 126 40 - 130 Units/L [facility] ALT 10 7 - 55 Units/L [facility] AST 13 10 - 50 Units/L [facility] Blood 07/18/2024 12:0 7 PM CDT 07/18/2024 12:25 PM CDT Gautam Cope MD LAB BLOOD ORDERABLES Final Resul t [facility] [facility] [place] [address] * SCAN - RADIOLOGY/IMAGING (07/01/2024 9:44 AM CDT) Anatomical Region Laterality Modality Other us Provider Scanning Final Result * (ABNORMAL) eGFR (06/14/2024 3:48 PM CARGO HANDLER) eGFR 26(L) >=60 mL/min/1. 73 m2 Comment: [...] last reviewed 2021. Blood 06/14/2024 3:48 PM CARGO HANDLER 06/14/2024 4:07 PM CARGO HANDLER us Lin Guerrero MD LAB BLOOD ORDERABLES Final Resul t [facility] [place] [address] * (ABNORMAL) Renal function panel (06/14/2024 3:48 PM CARGO HANDLER) Sodium 143 135 - 145 mmol/L Potassium, pl 5.0(H) 3.3 - 4.9 mmol/L [facility] Chloride 105 97 - 110 mmol/L [facility] CO2 28 22 - 32 mmol/L [facility] Anion gap 10 2 - 15 mmol/L [facility] BUN 48(H) 6 - 25 mg/dL [facility] Creatinine 2.42(H) 0.80 - 1.30 mg/dL [facility] Glucose 152 70 - 199 mg/dL [facility] Comment: Interpretive Data Fasting glucose >/= 126 [...] 2022. Calcium 8.7 8.5 - 10.3 mg/dL [facility] Phosphorus, pl 3.1 2.3 - 4.5 mg/dL [facility] Albumin 3.9 3.5 - 5.0 g/dL [facility] Blood 06/14/2024 3:48 PM CARGO HANDLER 06/14/2024 4:03 PM CARGO HANDLER us Lin Guerrero MD LAB BLOOD ORDERABLES Final Resul t Performing Organization Address [facility] de Phone Number [facility] [place] [address] * Urinalysis reflex to microscopic (06/08/2024 10:47 AM CARGO HANDLER) Color, ur Straw Yellow Clarity, ur Clear Clear [facility] Specific gravity, ur 1.012 1.003 - 1.030 [facility] pH, urine 6.0 [facility] Comment: Interpretive Data U rine pH is affected by diet, medications, systemic acid-base disturbances, and renal tubular function. pH may affect urinary stone formation. For example, urine pH below 6.0 may help reduce the tendency for calcium phosphate stones and pH greater than 6.0 may reduce the tendency for uric acid stone formation. Source: [facility] Current Interpretive Data was last revised on 2017 Protein, ur ql Trace Negative [facility] Glucose, ur ql Negative Negative [facility] Ketones, ur Negative Negative [facility] Bilirubin, ur Negative Negative [facility] Blood, ur Negative Negative [facility] Urobilinogen, ur <2.0 <2.0 mg/dL [facility] Nitrite, ur Negative Negative [facility] Leukocyte esterase, ur Negative Negative [facility] UA reflex comment Reflex conditions for microscopic UA not met. [facility] Urine 06/08/2024 10:4 7 AM CARGO HANDLER 06/08/2024 11:41 AM CARGO HANDLER Lin Guerrero MD LAB URINE ORDERABLES Final Resul t Performing Organization Address [facility] Co de Phone Number [facility] [place] [address] * (ABNORMAL) eGFR (06/08/2024 10:44 AM CARGO HANDLER) eGFR 22(L) >=60 mL/min/1. 73 m2 Comment: [...] reviewed 2021. Blood 06/08/2024 10:4 4 AM CARGO HANDLER 06/08/2024 11:23 AM CARGO HANDLER us Lin Guerrero MD LAB BLOOD ORDERABLES Final Resul t [facility] [place] [address] * (ABNORMAL) Differential, auto (06/08/2024 10:44 AM CARGO HANDLER) Neutrophil abs 7.8(H) 1.5 - 6.5 K/cumm Imm gran abs 0.1 0.0 - 0.1 K/cumm [facility] Lymphocyte abs 1.9 0.8 - 3.3 K/cumm [facility] Monocyte abs 1.0(H) 0.2 - 0.8 K/cumm [facility] Eosinophil abs 0.1 0.0 - 0.5 K/cumm [facility] Basophil abs 0.0 0.0 - 0.1 K/cumm [facility] Neutrophil pct 71.1 % [facility] Comment: Interpretive Data Percent cell count reference ranges are not reported, since discordance with absolute values may lead to misinterpretation of CBC data. Current Interpretive Data was last revised on 2017. Imm gran pct 0.8 % [facility] Comment: Interpretive Data Percent cell count reference ranges are not reported, since discordance with absolute values may lead to misinterpretation of CBC data. Current Interpretive Data was last revised on 2017. Lymphocyte pct 17.1 % [facility] Comment: Interpretive Data Percent cell count reference ranges are not reported, since discordance with absolute values may lead to misinterpretation of CBC data. Current Interpretive Data was last revised on 2017. Monocyte pct 9.3 % [facility] Comment: Interpretive Data Percent cell count reference ranges are not reported, since discordance with absolute values may lead to misinterpretation of CBC data. Current Interpretive Data was last revised on 2017. Eosinophil pct 1.3 % [facility] Comment: Interpretive Data Percent cell count reference ranges are not reported, since discordance with absolute values may lead to misinterpretation of CBC data. Current Interpretive Data was last revised on 2017. Basophil pct 0.4 % [facility] Comment: Interpretive Data Percent cell count reference ranges are not reported, since discordance with absolute values may lead to misinterpretation of CBC data. Current Interpretive Data was last revised on 2017. Blood 06/08/2024 10:4 4 AM CARGO HANDLER 06/08/2024 11:23 AM CARGO HANDLER us Lin Guerrero MD LAB BLOOD ORDERABLES Final Resul t [facility] [place] [address] * (ABNORMAL) CBC with auto differential (06/08/2024 10:44 AM CARGO HANDLER) WBC 11.0(H) 3.8 - 9.9 K/cumm Hgb 12.0(L) 13.0 - 17.5 g/dL [facility] Hct 36.9(L) 38.9 - 50.3 % [facility] Plt 357 150 - 400 K/cumm [facility] MPV 9.8 9.1 - 12.3 fL [facility] RBC 4.27(L) 4.30 - 5.80 M/cumm [facility] MCV 86.4 81.3 - 96.4 fL [facility] MCH 28.1 27.1 - 33.3 pg [facility] MCHC 32.5 32.3 - 35.7 g/dL [facility] RDW CV 14.1 11.1 - 14.9 % [facility] RDW SD 44.2 35.7 - 48.1 fL [facility] NRBC abs 0.00 0.00 - 0.01 K/cumm [facility] Blood 06/08/2024 10:4 4 AM CARGO HANDLER 06/08/2024 11:23 AM CARGO HANDLER Lin Guerrero MD LAB BLOOD ORDERABLES Final Resul t Performing Organization Address [facility] de Phone Number [facility] [place] [address] * (ABNORMAL) Protein / creatinine ratio, urine, random (06/08/2024 10:44 AM CARGO HANDLER) Pathologist [facility] Protein, ur, quant 21.3 mg/dL Comment: Interpretive Data No reference range established. Current interpretive data was last revised 2018. Creatinine Ur 52.2 mg/dL [facility] Comment: Interpretive Data No reference range established. Current interpretive data was last revised 2018. Protein/creatinin e ratio 408.0(H) 0.0 - 180.0 mg/g CR [facility] Urine 06/08/2024 10:4 4 AM CARGO HANDLER 06/08/2024 11:23 AM CARGO HANDLER Lin Guerrero MD LAB URINE ORDERABLES Final Resul t Performing Organization Address [facility] de Phone Number [facility] [place] [address] * Vitamin D 25 hydroxy (06/08/2024 10:44 AM CARGO HANDLER) Pathologist [facility] Vitamin D 25-OH 42 30 - 80 ng/mL Blood 06/08/2024 10:4 4 AM CARGO HANDLER 06/08/2024 11:23 AM CARGO HANDLER Lin Guerrero MD LAB BLOOD ORDERABLES Final Resul t Performing Organization Address City/[facility]/ZIP Co de Phone Number [facility] [place] [address] * (ABNORMAL) PTH (06/08/2024 10:44 AM CARGO HANDLER) PTH 78(H) 15 - 65 pg/mL Blood 06/08/2024 10:4 4 AM CARGO HANDLER 06/08/2024 11:23 AM CARGO HANDLER Lin Guerrero MD LAB BLOOD ORDERABLES Final Resul t Performing Organization Address [facility] de Phone Number [facility] [place] [address] * (ABNORMAL) Renal function panel (06/08/2024 10:44 AM CARGO HANDLER) Pathologist [facility] Sodium 142 135 - 145 mmol/L Potassium, pl 4.8 3.3 - 4.9 mmol/L [facility] Chloride 107 97 - 110 mmol/L [facility] CO2 27 22 - 32 mmol/L [facility] Anion gap 8 2 - 15 mmol/L [facility] BUN 60(H) 6 - 25 mg/dL [facility] Creatinine 2.72(H) 0.80 - 1.30 mg/dL [facility] Glucose 94 70 - 199 mg/dL [facility] Comment: Interpretive Data Fasting glucose >/= 126 [...] 2022. Calcium 9.0 8.5 - 10.3 mg/dL [facility] Phosphorus, pl 3.5 2.3 - 4.5 mg/dL [facility] Albumin 3.8 3.5 - 5.0 g/dL [facility] Blood 06/08/2024 10:4 4 AM CARGO HANDLER 06/08/2024 11:23 AM CARGO HANDLER us Lin Guerrero MD LAB BLOOD ORDERABLES Final Resul t Performing Organization Address City/[facility] Co de Phone Number [facility] [place] [address] * (ABNORMAL) eGFR (04/25/2024 9:45 AM CARGO HANDLER) eGFR 28(L) >=60 mL/min/1. 73 m2 Comment: [...] last reviewed 2021. Blood 04/25/2024 9:45 AM CARGO HANDLER 04/25/2024 9:51 AM CARGO HANDLER us Gautam Cope MD LAB BLOOD ORDERABLES Final Resul t [facility] [place] [address] * (ABNORMAL) Vitamin D 25 hydroxy (04/25/2024 9:45 AM CARGO HANDLER) Vitamin D 25-OH 22(L) 30 - 80 ng/mL Blood 04/25/2024 9:45 AM CARGO HANDLER 04/25/2024 9:51 AM CARGO HANDLER us Gautam Cope MD LAB BLOOD ORDERABLES Final Resul t Performing Organization Address [facility] Phone Number [facility] [place] [address] * (ABNORMAL) Total testosterone (04/25/2024 9:45 AM CARGO HANDLER) Pathologist [facility] Testosterone <5.0(L) 193.0 - 740.0 ng/dL Blood 04/25/2024 9:45 AM CARGO HANDLER 04/25/2024 11:20 AM CARGO HANDLER us Gautam Cope MD LAB BLOOD ORDERABLES Final Resul t Performing Organization Address [facility] Phone Number [facility] [place] [address] * PSA diagnostic (04/25/2024 9:45 AM CARGO HANDLER) Pathologist [facility] PSA-Total <0.02 <=6.20 ng/mL Comment: [...] last revised 21. Blood 04/25/2024 9:45 AM CARGO HANDLER 04/25/2024 9:51 AM CARGO HANDLER us Gautam Cope MD LAB BLOOD ORDERABLES Final Resul t Performing Organization Address [facility]/ZIP Co de Phone Number [facility] [place] [address] * Lactate dehydrogenase (LD) (04/25/2024 9:45 AM CARGO HANDLER) [facility] Lactate dehydrogenase (LDH) 157 100 - 250 Units/L Blood 04/25/2024 9:45 AM CARGO HANDLER 04/25/2024 9:51 AM CARGO HANDLER us Gautam Cope MD LAB BLOOD ORDERABLES Final Resul t Performing Organization Address [facility] [place] [address] * (ABNORMAL) Hemoglobin A1c (04/25/2024 9:45 AM CARGO HANDLER) [facility] Hgb A1C 8.1(H) 4.0 - 5.6 % Estimated Average Glucose 186 mg/dL [facility] Comment: The ADA recommends reporting an estimated Average Glucose (eAG) with all Hemoglobin A1c results using the equation derived from a study of 507 normal and diabetic adults. Minority populations were underrepresented and children were not included. (Diabetes Care 2020; 43(S1): S66-S76). The eAG is not equivalent to a fasting glucose. Blood 04/25/2024 9:45 AM CARGO HANDLER 04/25/2024 9:51 AM CARGO HANDLER us Gautam Cope MD LAB BLOOD ORDERABLES Final Resul t Performing Organization Address [facility] Co de Phone Number [facility] [place] [address] * Vitamin B12 (04/25/2024 9:45 AM CARGO HANDLER) [facility] Vitamin B12 390 230 - 1,250 pg/mL Blood 04/25/2024 9:45 AM CARGO HANDLER 04/25/2024 11:20 AM CARGO HANDLER us Gautam Cope MD LAB BLOOD ORDERABLES Final Resul t Performing Organization Address [facility] Co de Phone Number [facility] [place] [address] * (ABNORMAL) Comprehensive metabolic panel (04/25/2024 9:45 AM CARGO HANDLER) Sodium 142 135 - 145 mmol/L Potassium, pl 4.5 3.3 - 4.9 mmol/L [facility] Chloride 106 97 - 110 mmol/L [facility] CO2 29 22 - 32 mmol/L [facility] Anion gap 7 2 - 15 mmol/L [facility] BUN 41(H) 6 - 25 mg/dL [facility] Creatinine 2.25(H) 0.80 - 1.30 mg/dL [facility] Glucose 201(H) 70 - 199 mg/dL [facility] Comment: Interpretive Data Fasting glucose >/= 126 [...] 2022. Calcium 9.2 8.5 - 10.3 mg/dL [facility] Bilirubin, total 0.3 0.1 - 1.2 mg/dL [facility] Protein, pl 6.7 6.5 - 8.5 g/dL [facility] Albumin 3.9 3.5 - 5.0 g/dL [facility] Alk phos 128 40 - 130 Units/L [facility] ALT 10 7 - 55 Units/L [facility] AST 12 10 - 50 Units/L [facility] Blood 04/25/2024 9:45 AM CARGO HANDLER 04/25/2024 9:51 AM CARGO HANDLER Gautam Cope MD LAB BLOOD ORDERABLES Final Resul t Performing Organization Address City/[facility] Co de Phone Number [facility] [place] [address] * (ABNORMAL) Differential, auto (04/25/2024 9:40 AM CARGO HANDLER) Neutrophil abs 9.1(H) 1.5 - 6.5 K/cumm Comment:Testing performed by : [facility], [address] [place] [phone] Lymphocyte abs 1.6 0.8 - 3.3 K/cumm [facility] Comment:Testing performed by : [facility], [address] [place] [phone] Monocyte abs 0.9(H) 0.2 - 0.8 K/cumm [facility] Comment:Testing performed by : [facility], [address] [place] [phone] Eosinophil abs 0.2 0.0 - 0.5 K/cumm [facility] Comment:Testing performed by : [facility], [address] [place] [phone] Basophil abs 0.1 0.0 - 0.1 K/cumm [facility] Comment:Testing performed by : [facility], [address] [place] [phone] Neutrophil pct 76.7 % [facility] Comment: Interpretive Data Percent cell count reference ranges are not reported, since discordance with absolute values may lead to misinterpretation of CBC data. Current Interpretive Data was last revised on 2017. Testing performed by: [facility], [address] [place] [phone] Lymphocyte pct 13.2 % [facility] Comment: Interpretive Data Percent cell count reference ranges are not reported, since discordance with absolute values may lead to misinterpretation of CBC data. Current Interpretive Data was last revised on 2017. Testing performed by: [facility], [address] [place] [phone] Monocyte pct 7.1 % [facility] Comment: Interpretive Data Percent cell count reference ranges are not reported, since discordance with absolute values may lead to misinterpretation of CBC data. Current Interpretive Data was last revised on 2017. Testing performed by: [facility], [address] [place] [phone] Eosinophil pct 1.8 % [facility] Comment: Interpretive Data Percent cell count reference ranges are not reported, since discordance with absolute values may lead to misinterpretation of CBC data. Current Interpretive Data was last revised on 2017. Testing performed by: [facility], [address] [place] [address] Basophil pct 1.2 % [facility] Comment: Interpretive Data Percent cell count reference ranges are not reported, since discordance with absolute values may lead to misinterpretation of CBC data. Current Interpretive Data was last revised on 2017. Testing performed by: [facility], [address] [place] [address] Blood 04/25/2024 9:40 AM CARGO HANDLER 04/25/2024 9:45 AM CARGO HANDLER us Gautam Cope MD LAB BLOOD ORDERABLES Final Resul t [facility] [place] [address] * (ABNORMAL) CBC with auto differential (04/25/2024 9:40 AM CARGO HANDLER) WBC 11.9(H) 3.8 - 9.9 K/cumm Comment:Testing performed by : [facility], [address] [place] [address] Hgb 12.2(L) 13.0 - 17.5 g/dL [facility] Comment:Testing performed by : [facility], [address] [place] [address] Hct 38.8(L) 38.9 - 50.3 % [facility] Comment:Testing performed by : [facility], [address] [place] [address] Plt 369 150 - 400 K/cumm [facility] Comment:Testing performed by : [facility], [address] [place] [address] MPV 7.7 6.8 - 10.4 fL [facility] Comment:Testing performed by : [facility], [address] [place] [address] RBC 4.38 4.30 - 5.80 M/cumm [facility] Comment:Testing performed by : [facility], [address] [place] [address] MCV 88.6 81.3 - 96.4 fL [facility] Comment:Testing performed by : [facility], [address] [place] [address] MCH 27.8 27.1 - 33.3 pg [facility] Comment:Testing performed by : [facility], [address] [place] [address] MCHC 31.3(L) 32.3 - 35.7 g/dL [facility] Comment:Testing performed by : [facility], [address] [place] [address] RDW CV 14.7 11.1 - 14.9 % [facility] Comment:Testing performed by : [facility], [address] [place] [address] NRBC abs 0.00 0.00 - 0.01 K/cumm [facility] Comment:Testing performed by : [facility], [address] [place] [address] Blood 04/25/2024 9:40 AM CARGO HANDLER 04/25/2024 9:45 AM CARGO HANDLER us Gautam Cope MD LAB BLOOD ORDERABLES Final Resul t [facility] [place] [address] * Dexa TBS Axial Skeleton Bone Density 1 or more sites (04/24/2024 11:56 AM CARGO HANDLER) Anatomical Region Laterality Modality Wrist, Body N/A Radiographic Roberta ging Narrative 04/24/2024 12:52 PM CARGO HANDLER Patient Name: David Wei Date of : 1940 Date of scan: 04/24/2024 Bone mineral density was performed on a [employer] Discovery Densitometer. Based on machine cross-calibration and [...] by the International Society of Clinical Densitometry. [id number] Daquan George MD [facility] DXA PROCEDURES Final Result * (ABNORMAL) Lipid panel (03/08/2023 11:55 AM CARGO HANDLER) [facility] Cholesterol 193 30 - 199 mg/dL [facility] Comment: Interpretive Data Ages < or [...] revised on 2017. Triglycerides 250(H) <=149 mg/dL [facility] Comment: Interpretive Data Ages < or = [...] revised on 2017. HDL 36(L) >=40 mg/dL [facility] Comment: Interpretive Data Ages < or = [...] on 2017. LDL, calculated 107 <=129 mg/dL [facility] Comment: Interpretive Data Ages < or = [...] revised on 2017. Non-HDL Cholesterol 157 mg/dL [facility] Comment: Interpretive Data Ages < or = [...] last revised on 2017. Chol/HDL ratio 5 [facility] Blood 03/08/2023 11:5 5 AM CARGO HANDLER 03/08/2023 3:48 PM CARGO HANDLER Kraig Ching MD LAB BLOOD ORDERABLES Final Re sult Performing Organization Address [facility] de Phone Number [facility] [place] [address] * (ABNORMAL) Albumin Creatinine Ratio, Urine (01/01/2023 10:40 AM CDT) Albumin Ur 227.3 mg/L [facility] Comment: Interpretive Data No reference range established. Current interpretive data was last revised 2018. Creatinine Ur 66.5 mg/dL [facility] Comment: Interpretive Data No reference range established. Current interpretive data was last revised 2018. Albumin Creatinine Ratio, Ur 342(H) 1 - 29 mg/g [facility] Urine 01/01/2023 10:4 0 AM CDT 01/01/2023 10:45 AM CDT Kraig Ching MD LAB URINE ORDERABLES Final Re sult Performing Organization Address [facility] Co de Phone Number [facility] [place] [address] * DIABETES EYE EXAM (06/29/2018) Diabetic Eye Exam Normal Historical Provider HEALTH MAINTENANCE Final Result from Last 3 Months or Most Recently Relevant to Health Maintenance Insurance [employer] MEDICARE MEDICARE A[employer]NA MEDICARE A[employer] MEDICARE Advance Directives For more information, please contact: [phone] * Full Code (Latest Code Status on File) Date Activated Date Inactivated Comments 12/16/2017 2:44 PM 12/16/2017 7:18 PM Care Teams Cigar Head Pegger Relationship Specialty Start Date End Date Kraig Ching MD [address] [facility] [address] [place] [address] PCP - General 07/10/16 Gautam Cope MD [address] [facility] [address] [place] [address] Medical Oncologist/Grounds Restoration Specialist Medical Oncology 08/18/18 Tramaine Roe MD [address] [facility] [address] [place] [address] Referring Physician Urology 08/18/18 Sukhwinder Uribe MD [address] [facility] [address] [place] [address] Consulting Physician Urology 08/18/18 Shay Guillermo MD On license of [facility] [address] [place] [address] Referring Physician Urology 08/18/18 Marsha Landis, RN Registered Nurse 11/17/18
--- OUTSIDE RECORDS SUMMARY | 2024-07-21 07:33 | XMS_ITS | Encounter Summary ---
Author Organization [facility] Address [address] [place] [address] Phone Care Team Providers Care Inspector Raw Quartz Name Role Phone Kraig Ching MD Primary Care Provider [phone] Gautam Cope MD Unavailable Tramaine Roe MD Unavailable [phone] Sukhwinder Uribe MD Unavailable [phone] Shay Guillermo MD Unavailable [phone] Marsha Landis RN Unavailable Unavailab Clarissa Harry RN Unavailable [phone] Encounter Details Date Type Department Care Team (Late st Contact Info) Description 12/09/[address] 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 Gender Identity Not on file Sexual Orientation Not on file documented as of this encounter Functional Status documented as of this encounter Plan of Treatment Not on file documented as of this encounter Visit Diagnoses Not on filedocumented in this encounter Care Teams Inspector Raw Quartz Relationship Specialty Start Date End Date Kraig Ching MD [address] [place] [address] PCP - General 07/10/16 Gautam Cope MD [address] [place] [address] Medical Oncologist/Military Analyst Medical Oncology 08/18/18 Tramaine Roe MD [address] [place] [address] Referring Physician Urology 08/18/18 Sukhwinder Uribe MD [address] [place] [address] Consulting Physician Urology 08/18/18 Shay Guillermo MD [address] [place] [address] Referring Physician Urology 08/18/18 Marsha Landis, RN Registered Nurse 11/17/18 Clarissa Luna RN [address] [place] [address] [address] [place] [address] Esol Teacher Assistant 04/04/24 04/26/24 documented as of this encounter
--- OUTSIDE RECORDS SUMMARY | 2024-07-21 07:33 | XMS_ITS | Encounter Summary ---
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 Gender Identity Not on file Sexual Orientation Not on file documented as of this encounter Functional Status documented as of this encounter Plan of Treatment Scheduled Orders Name Type Priority Associated Diagnoses Orde r Schedule CARDIOLOGY DOCUMENT SCAN Cardiac Services Ordered: 03/21/2023 documented as of this encounter Visit Diagnoses Not on filedocumented in this encounter Care Teams Healthcare Insurance Sales Agent Relationship Specialty Start Date End Date Kraig Ching MD [address] [facility] [address] [place] [address] PCP - General 07/10/16 Gautam Cope MD [address] [facility] [address] [place] [address] Medical Oncologist/Applied Anthropologist Medical Oncology 08/18/18 Tramaine Roe MD [address] [facility] [address] [place] [address] Referring Physician Urology 08/18/18 Sukhwinder Uribe MD [address] [facility] [address] [place] [address] Consulting Physician Urology 08/18/18 Shay Guillermo MD [address] [facility] [address] [place] [address] Referring Physician Urology 08/18/18 Marsha Landis RN Registered Nurse 11/17/18 Clarissa Luna RN [address] [place] [address] [address] [place] [address] Shank Taper 04/04/24 04/26/24 documented as of this encounter
--- OUTSIDE RECORDS SUMMARY | 2024-07-21 07:33 | XMS_ITS | Clinical Summary ---
Author Organization [facility] Address [address] [place] [address] Care Team Providers Care Office Bookkeeper Name Role Phone Kraig Ching MD Primary Care Provider [phone] Gautam Cope MD Unavailable Tramaine Roe MD Unavailable [phone] Sukhwinder Uribe MD Unavailable [phone] Shay Guillermo MD Unavailable [phone] Marsha Landis RN Unavailable Unavailab le Allergies [...] 05/30/2024 Assessment & Plan (06/08/2024 4:46 AM HUMAN RESOURCES ASSOCIATE): Continue current regimen.Limit nephrotoxins.Reviewed creatinine. Avoid NSAIDS. [...] 03/08/2023 Assessment & Plan (06/08/2024 4:46 AM HUMAN RESOURCES ASSOCIATE): Hypertension is controlled. Continue current regimen. Assessment & Plan (10/05/2023 12:54 PM CDT): Hypertension is controlled. Decrease carvedilol to 12.5 mg. Assessment & Plan (03/08/2023 7:11 AM HUMAN RESOURCES ASSOCIATE): Hypertension is controlled. Continue current regimen. 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 Avoid NSAIDS. Assessment & Plan (10/05/2023 5:50 AM CDT): Continue current regimen.Limit nephrotoxins.Reviewed creatinine. Avoid NSAIDS. Assessment & Plan (03/08/2023 7:12 AM HUMAN RESOURCES ASSOCIATE): Continue current regimen.Limit nephrotoxins.Reviewed creatinine. Avoid NSAIDS. CKD (chronic kidney disease) 03/08/2022 Assessment & Plan (06/08/2024 4:45 AM HUMAN RESOURCES ASSOCIATE): Limit nephrotoxins. Monitor creatinine. Avoid NSAIDS.Follow with Nephrology. 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 chronic kidney disease 2021 Gastroesophageal reflux disease 04/08/2021 Assessment & Plan (03/08/2023 11:17 AM HUMAN RESOURCES ASSOCIATE): Reviewed dietary modifications. Continue PPI. Assessment & Plan (08/18/2022 6:36 AM CDT): Reviewed dietary modifications. Continue PPI. Assessment & Plan (02/12/2022 6:03 AM CDT): Reviewed dietary modifications. Continue PPI. Assessment & Plan (04/08/2021 5:55 AM HUMAN RESOURCES ASSOCIATE): Reviewed dietary modifications. Continue PPI. 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 Continue home PT exercises. Advised using a walker. Assessment & Plan (08/18/2022 11:47 AM CDT): Continue oxycodone. Continue home PT exercises. Advised using a walker. Assessment & Plan (02/12/2022 11:41 AM CDT): Continue oxycodone. Continue home PT exercises. A prescription for a walker. Assessment & Plan (04/08/2021 5:55 AM HUMAN RESOURCES ASSOCIATE): Continue oxycodone. Continue home PT exercises. Continue walker. Assessment & Plan (12/26/2020 10:48 AM CDT): Continue oxycodone. Script for walker. Assessment & Plan (09/26/2020 11:29 AM CDT): Continue ROM exercises and follow with Pain Management. Refill oxycodone as needed. Prostate cancer 09/06/2018 Assessment & Plan (06/08/2024 4:46 AM HUMAN RESOURCES ASSOCIATE): Follow with Oncology. Continue Zytiga. Assessment & [...] 01/25/2018 Assessment & Plan (03/07/2018 6:54 AM HUMAN RESOURCES ASSOCIATE): Hypertension is controlled. Continue current regimen. CHF [...] creatinine. Assessment & Plan (04/08/2021 5:54 AM HUMAN RESOURCES ASSOCIATE): Hypertension is controlled. Continue current regimen.Limit nephrotoxins. [...] NSAIDS. Assessment & Plan (03/07/2018 6:55 AM HUMAN RESOURCES ASSOCIATE): Hypertension is controlled. Continue current regimen. Limit nephrotoxins. Monitor creatinine. Avoid NSAIDS. Assessment & Plan (11/25/2017 7:09 AM CDT): Limit nephrotoxins. Monitor creatinine. Avoid NSAIDS. Duodenal ulcer 11/25/2017 Assessment & Plan (11/25/2017 10:16 AM CDT): Reviewed GI note . Continue pantoprazole. Avoid NSAIDS. Refer for EGD. PAF (paroxysmal atrial fibrillation) 10/22/2017 Assessment & Plan (03/07/2018 6:54 AM HUMAN RESOURCES ASSOCIATE): Continue rate control. Continue anticoagualtion. Anticipate starting [...] NSAIDS. Assessment & Plan (03/07/2018 6:55 AM HUMAN RESOURCES ASSOCIATE): Limit nephrotoxins. Monitor creatinine. Avoid NSAIDS. Assessment [...] diet. Assessment & Plan (04/08/2021 10:17 AM HUMAN RESOURCES ASSOCIATE): Reviewed HgBA1C elevated at 10.6 on 04/01/21. [...] therapy. Assessment & Plan (03/07/2018 6:57 AM HUMAN RESOURCES ASSOCIATE): Continue pravastatin. He had myalgias on other [...] diet. Assessment & Plan (03/02/2017 6:53 AM HUMAN RESOURCES ASSOCIATE): Hypertension is controlled. Continue current regimen. Reviewed low sodium diet. Assessment & Plan (01/15/2017 6:44 AM CDT): Reviewed proper diet. Continue statin therapy. Hyperlipidemia 01/12/2012 Assessment & Plan (06/08/2024 4:46 AM HUMAN RESOURCES ASSOCIATE): Continue pravastatin. Order lipid panel at next [...] 05/28/2023 Assessment & Plan (03/08/2023 11:40 AM HUMAN RESOURCES ASSOCIATE): Agree with cataract surgery. He has 1st [...] 08/30/2017 Assessment & Plan (03/02/2017 10:48 AM HUMAN RESOURCES ASSOCIATE): Mood is improved. Monitor off medication. Impotence [...] 200. Assessment & Plan (03/07/2018 6:56 AM HUMAN RESOURCES ASSOCIATE): Continue current regimen. Advised annual eye exam.Limit [...] - 07/19/2024 11:59 PM CDT Hospital Encounter [address] [address] Urinary frequency Discharge Disposition: Discharge to home or self care 07/19/2024 2:00 PM CDT Office Visit [facility] Medical [facility] at [address] [address] Clau Childers PA Urinary frequency (Primary Dx); Leukocytosis, unspecified type 07/18/2024 1:45 PM CDT Infusion [facility] - Infusion [address] [facility] Floor [address] [place] [address] Prostate cancer (HCC) (Primary Dx) 07/18/2024 1:00 PM CDT Office Visit [facility] Oncology [address] [facility] Floor 5 [place] [address] Gautam Cope MD Prostate cancer (HCC) (Primary Dx) 07/18/2024 12:00 PM CDT Lab [facility] - Lab Collection [address] [facility] Floor 5 [place] [address] Prostate cancer (HCC) 07/18/2024 Patient Self-Triage [facility] [address] [place] [address] Mychart, Generic Provider 07/01/2024 Orders Only [facility] Information Management [address] [place] [id number] Scanning, Provider 06/14/2024 6:15 PM HUMAN RESOURCES ASSOCIATE Lab [facility] [address] [place] [phone] GABRIELA (acute kidney injury) 06/14/2024 3:00 PM HUMAN RESOURCES ASSOCIATE Office Visit [facility] Nephrology [address] [place] [address] 5th [place] [address] [place] [address] Lin Guerrero MD Chronic kidney disease, stage 3b (HCC) (Primary Dx); GABRIELA (acute kidney injury); Hypertension, essential; Secondary hyperparathyroidism of renal origin 06/08/2024 12:00 PM HUMAN RESOURCES ASSOCIATE Lab [facility] ([facility] [address] [place] [phone] 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 chronic kidney disease (HCC); Hypertension, essential; Secondary hyperparathyroidism of renal origin; Stage 3 chronic kidney disease, unspecified whether stage 3a or 3b CKD (HCC); Primary hypertension; Vitamin D deficiency; Type 2 diabetes mellitus with stage 3a chronic kidney disease, with long-term current use of insulin (HCC); Fatigue, unspecified type; GABRIELA (acute kidney injury) 06/08/2024 9:45 AM HUMAN RESOURCES ASSOCIATE Office Visit [address] [address] Kraig Ching MD Hypertension, essential (Primary Dx); Prostate cancer (HCC); Type 2 diabetes mellitus with stage 3b chronic kidney disease, with long-term current use of insulin (HCC); Stage 3b chronic kidney disease (HCC); Hyperlipidemia, unspecified hyperlipidemia type 05/24/2024 Orders Only [facility] Nephrology [address] [place] [address] [place] [address] Lin Guerrero MD 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 [...] type; GABRIELA (acute kidney injury) 05/02/[address] [address] Kraig Ching MD Medical Question/Miscellaneous 04/28/[address] [place] [address] Stef Roman NP 04/28/2024 Orders Only [address] [place] [address] Stef Roman NP 04/25/2024 11:45 AM HUMAN RESOURCES ASSOCIATE Infusion [facility] - Infusion [address] [place] [address] Floor [address] [place] [address] Prostate cancer (HCC) (Primary Dx) 04/25/2024 10:45 AM HUMAN RESOURCES ASSOCIATE Office Visit [facility] Oncology [facility] [facility] Floor [address] [place] [address] Gautam Cope MD Prostate cancer (HCC) 04/25/2024 9:45 AM HUMAN RESOURCES ASSOCIATE Lab [facility] - Lab Collection [address] [facility] Floor [address] [place] [address] Prostate cancer (HCC) 04/24/2024 12:20 PM HUMAN RESOURCES ASSOCIATE Office Visit [facility] [address] [facility] 5th [place] [address] [place] [phone] Daquan Geogre MD Age-related osteoporosis without current pathological fracture (Primary Dx); Alkaline phosphatase elevation; Thyroid condition 04/24/2024 11:50 AM HUMAN RESOURCES ASSOCIATE Clinical Support [facility] [address] [facility] 5th [place] [address] [place] [phone] Age-related osteoporosis without current pathological fracture (Primary Dx) 04/24/[address] 5th [place] [address] [place] [address] Daquan George MD from Last [...] 01/17/2019 Influenza, Unspecified 01/17/2019(Deferred: Daisy ent Refused) [facility] SARS-CoV-2 Vaccination 06/14/2020, 06/14/2020 Pfizer [...] Recorded In the past 12 months has [employer] electric, gas, oil, or water company threatened [...] often do you attend chur ch or religion services? Never 04/04/2024 Do you belong to any clubs o r organizations such as samaritan groups, unions, fraternal or athletic groups, or [...] any time in the past 12 m [facility], were you homeless or living [...] Legal Sex Male 4:46 PM HUMAN RESOURCES ASSOCIATE Gender Identity Not on file Sexual [...] cm (5' 9 ) 06/14/2024 2:58 PM HUMAN RESOURCES ASSOCIATE Body Mass Index 29.98 06/14/2024 2:58 PM HUMAN RESOURCES ASSOCIATE Plan of Treatment Health Maintenance Due Date [...] General Goal - Patient establishes care with [facility] ACO Care Management On track(2023 1:22 PM HUMAN RESOURCES ASSOCIATE) No Clarissa Luna RN Note: Problem: Lack of [facility] communication Interventions: - Provide coordination between [facility] company and patient. - Ensure [facility] has appropriate referral and orders to establish care with patient. - Follow up with patient to ensure initial visit was completed by [facility] and that a [facility] plan has been started. ZAK General Goal - Patient schedules and keeps appointments with all recommended providers ACO Care Management Improving( 1:22 PM HUMAN RESOURCES ASSOCIATE) No Clarissa Luna RN Note: Problem: Potential [...] medication regimen. Medical Devices Implanted Type Area Guest Services Associate Device Identifier Shelf Expiration Date Model / Serial / Lot [employer] Lens Iol Cna0t0.195 [employer] Cna0t0.195 - [id number] - [id number] Implanted:Qty: 1 on 06/09/2023 by Higinio Connolly MD at [facility] Lens Right: Eye [employer] [id number] 10/27/2025 CNA0T0.19 5 / [id number] / [employer] Lens Iol Cna0t0.200 [employer] Cna0t0.200 - [id number] - [id number] Implanted:Qty: 1 on 05/19/2023 by Higinio Connolly MD at [facility] Left: Eye [employer] [id number] 10/06/2025 CNA0T0.20 0 / [id number] / Procedures Procedure Name Priority Date/Time [...] AM CDT EGFR Routine 06/14/2024 3:48 PM HUMAN RESOURCES ASSOCIATE GABRIELA (acute kidney injury) RENAL FUNCTION PANEL Routine 06/14/2024 3:48 PM HUMAN RESOURCES ASSOCIATE GABRIELA (acute kidney injury) URINALYSIS AND REFLEX TO MICROSCOPIC Routine 06/08/2024 10:47 AM HUMAN RESOURCES ASSOCIATE 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 chronic kidney disease (HCC) Hypertension, essential Secondary hyperparathyroidism of renal origin Stage 3 chronic kidney disease, unspecified whether stage 3a or 3b CKD (HCC) Primary hypertension Vitamin D deficiency Type 2 diabetes mellitus with stage 3a chronic kidney disease, with long-term current use of insulin (HCC) Fatigue, unspecified type GABRIELA (acute kidney injury) EGFR Routine 06/08/2024 10:44 AM HUMAN RESOURCES ASSOCIATE 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 chronic kidney disease (HCC) Hypertension, essential Secondary hyperparathyroidism of renal origin Stage 3 chronic kidney disease, unspecified whether stage 3a or 3b CKD (HCC) Primary hypertension Vitamin D deficiency Type 2 diabetes mellitus with stage 3a chronic kidney disease, with long-term current use of insulin (HCC) Fatigue, unspecified type GABRIELA (acute kidney injury) DIFFERENTIAL AUTO Routine 06/08/2024 10:44 AM HUMAN RESOURCES ASSOCIATE 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 chronic kidney disease [...] RENAL FUNCTION PANEL Routine 06/08/2024 10:44 AM HUMAN RESOURCES ASSOCIATE 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 chronic kidney disease [...] D 25 HYDROXY Routine 06/08/2024 10:44 AM HUMAN RESOURCES ASSOCIATE 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 chronic kidney disease [...] WITH AUTO DIFFERENTIAL Routine 06/08/2024 10:44 AM HUMAN RESOURCES ASSOCIATE 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 chronic kidney disease (HCC) Hypertension, essential Secondary hyperparathyroidism of renal origin Stage 3 chronic kidney disease, unspecified whether stage 3a or 3b CKD (HCC) Primary hypertension Vitamin D deficiency Type 2 diabetes mellitus with stage 3a chronic kidney disease, with long-term current use of insulin (HCC) Fatigue, unspecified type GABRIELA (acute kidney injury) PTH Routine 06/08/2024 10:44 AM HUMAN RESOURCES ASSOCIATE 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 chronic kidney disease [...] RATIO, URINE, RANDOM Routine 06/08/2024 10:44 AM HUMAN RESOURCES ASSOCIATE 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 chronic kidney disease (HCC) Hypertension, essential Secondary hyperparathyroidism of renal origin Stage 3 chronic kidney disease, unspecified whether stage 3a or 3b CKD (HCC) Primary hypertension Vitamin D deficiency Type 2 diabetes mellitus with stage 3a chronic kidney disease, with long-term current use of insulin (HCC) Fatigue, unspecified type GABRIELA (acute kidney injury) EGFR STAT 04/25/2024 9:45 AM HUMAN RESOURCES ASSOCIATE Prostate cancer (HCC) VITAMIN D 25 HYDROXY Routine 04/25/2024 9:45 AM HUMAN RESOURCES ASSOCIATE Prostate cancer (HCC) TOTAL TESTOSTERONE Routine 04/25/2024 9:45 AM HUMAN RESOURCES ASSOCIATE Prostate cancer (HCC) HEMOGLOBIN A1C Routine 04/25/2024 9:45 AM HUMAN RESOURCES ASSOCIATE Prostate cancer (HCC) VITAMIN B12 Routine 04/25/2024 9:45 AM HUMAN RESOURCES ASSOCIATE Prostate cancer (HCC) LACTATE DEHYDROGENASE Routine 04/25/2024 9:45 AM HUMAN RESOURCES ASSOCIATE Prostate cancer (HCC) COMPREHENSIVE METABOLIC PANEL STAT 04/25/2024 9:45 AM HUMAN RESOURCES ASSOCIATE Prostate cancer (HCC) PSA DIAGNOSTIC Routine 04/25/2024 9:45 AM HUMAN RESOURCES ASSOCIATE Prostate cancer (HCC) DIFFERENTIAL AUTO Routine 04/25/2024 9:40 AM HUMAN RESOURCES ASSOCIATE Prostate cancer (HCC) CBC WITH AUTO DIFFERENTIAL Routine 04/25/2024 9:40 AM HUMAN RESOURCES ASSOCIATE Prostate cancer (HCC) DEXA TBS AXIAL SKELETON BONE DENSITY 1 OR MORE SITES Schedule Routine, Read Routine (OP Routine) 04/24/2024 11:56 AM HUMAN RESOURCES ASSOCIATE Age-related osteoporosis without current pathological fracture LIPID PANEL Routine 03/08/2023 11:55 AM HUMAN RESOURCES ASSOCIATE Hyperlipidemia, unspecified hyperlipidemia type ALBUMIN CREATININE RATIO, [...] Large Ketones, ur, POC Negative Negative Specific [place], POC 1.015 1.003 - 1.030 Blood, ur, POC Hemolyzed, trace(A) Negative pH, ur, POC 6.0 5.0 - 8.0 Protein, ur, POC 30.(A) Negative Urobilinogen, urine, POC 0.2 0.2 - 1.0 mg/dL Nitrite, ur, POC Negative Negative Leukocytes, ur, POC Negative Negative Lot Number [id number] Urine 07/19/2024 2:16 PM CDT Clau ESQUIVEL POINT OF CARE TEST ORDER ALAN Final Result * (ABNORMAL) eGFR (07/18/2024 12:07 PM CDT) Pathologist [facility] eGFR 23(L) >=60 mL/min/1. 73 m2 Comment: [...] Final Resul t [facility] [place] [address] * (ABNORMAL) Differential, auto (07/18/2024 12:07 PM CDT) Pathologist [facility] Neutrophil abs 17.55(H) 1.50 - 6.50 K/cumm Comment:Testing performed by : [facility]e [facility], [address] [place] [phone] Lymphocyte abs 0.96 0.80 - 3.30 K/cumm MERLINE PERDOMO Comment:Testing performed by : [facility] Heme [facility], [address] [place] [phone] Monocyte abs 1.48(H) 0.20 - 0.80 K/cumm [facility] Comment:Testing performed by : [facility]e [facility], [address] [place] [phone] Eosinophil abs 0.06 0.00 - 0.50 K/cumm [facility] Comment:Testing performed by : [facility] Heme [facility], [address] [place] [phone] Basophil abs 0.03 0.00 - 0.10 K/cumm [facility] Comment:Testing performed by : [facility] Heme [facility], [address] [place], [place] [phone] Neutrophil pct 87.4 % [facility] Comment: Interpretive Data Percent cell count reference ranges are not reported, since discordance with absolute values may lead to misinterpretation of CBC data. Current Interpretive Data was last revised on 2017. Testing performed by: [facility] Lab, [address] [place], [place] [id number] Lymphocyte pct 4.8 % [facility] Comment: Interpretive Data Percent cell count reference ranges are not reported, since discordance with absolute values may lead to misinterpretation of CBC data. Current Interpretive Data was last revised on 2017. Testing performed by: [facility] Lab, [address] [place] [phone] Monocyte pct 7.4 % [facility] Comment: Interpretive Data Percent cell count reference ranges are not reported, since discordance with absolute values may lead to misinterpretation of CBC data. Current Interpretive Data was last revised on 2017. Testing performed by: [facility] Heme Lab, [address] [place] [phone] Eosinophil pct 0.3 % [facility] Comment: Interpretive Data Percent cell count reference ranges are not reported, since discordance with absolute values may lead to misinterpretation of CBC data. Current Interpretive Data was last revised on 2017. Testing performed by: [facility] Heme [facility], [address] [place] [phone] Basophil pct 0.2 % [facility] Comment: Interpretive Data Percent cell count reference ranges are not reported, since discordance with absolute values may lead to misinterpretation of CBC data. Current Interpretive Data was last revised on 2017. Testing performed by: [facility]e Lab, [address] [place] [address] Blood 07/18/2024 12:0 7 PM CDT 07/18/2024 12:22 PM CDT us Gautam Cope MD LAB BLOOD ORDERABLES Final Resul t [facility] [place] [address] * (ABNORMAL) CBC with auto differential (07/18/2024 12:07 PM CDT) WBC 20.09(H) 3.80 - 9.90 K/cumm Comment:Testing performed by : [facility] Heme Lab, [address] [place] [address] Hgb 12.1(L) 13.0 - 17.5 g/dL [facility]ER[facility] Comment:Testing performed by : [facility] Heme Lab, [address] [place] [address] Hct 38.2(L) 38.9 - 50.3 % CERONEAL [facility] Comment:Testing performed by : [facility] Heme Lab, [address] [place] [address] Plt 451(H) 150 - 400 K/cumm [facility]ER[facility]AL [facility] Comment:Testing performed by : [facility] Heme Lab, [address] [place] [address] MPV 7.7 6.8 - 10.4 fL [facility]ERONEAL [facility] Comment:Testing performed by : [facility] Heme Lab, [address] [place] [address] RBC 4.46 4.30 - 5.80 M/cumm [facility]ER[facility]AL [facility] Comment:Testing performed by : [facility] Heme [facility], [address] [place] [address] MCV 85.5 81.3 - 96.4 fL [facility]ER[facility]AL [facility] Comment:Testing performed by : [facility] Heme Lab, [address] [place], [place] [phone] MCH 27.1 27.1 - 33.3 pg [facility] Comment:Testing performed by : [facility] Heme Lab, [address] [place], [place] [phone] MCHC 31.7(L) 32.3 - 35.7 g/dL [facility] PER[facility] Comment:Testing performed by : [facility] Heme Lab, [address] [place], [place] [phone] RDW CV 14.9 11.1 - 14.9 % [facility] Comment:Testing performed by : [facility] Heme Lab, [address] [place], [place] [phone] NRBC abs 0.00 0.00 - 0.01 K/cumm [facility] Comment:Testing performed by : [facility] Heme Lab, [address] [place], [place] [phone] Blood 07/18/2024 12:0 7 PM CDT 07/18/2024 12:22 PM CDT us Gautam Cope MD LAB BLOOD ORDERABLES Final Resul t [facility] [place] [address] * PSA diagnostic (07/18/2024 12:07 PM CDT) [...] ORDERABLES Final Resul t Performing Organization Address City/[facility] Co de Phone Number [facility] [place] [address] * Lactate dehydrogenase (LD) (07/18/2024 12:07 PM CDT) Pathologist [facility] Lactate dehydrogenase (LDH) 216 100 - 250 Units/L Blood 07/18/2024 12:0 7 PM CDT 07/18/2024 12:25 PM CDT Gautam Cope MD LAB BLOOD ORDERABLES Final Resul t Performing Organization Address [facility] [place] [address] * (ABNORMAL) Hemoglobin A1c (07/18/2024 12:07 PM CDT) [facility] Hgb A1C 8.0(H) 4.0 - 5.6 % Estimated Average Glucose 183 mg/dL [facility] Comment: The ADA recommends reporting an [...] ORDERABLES Final Resul t Performing Organization Address [facility] Co de Phone Number [facility] [place] [address] * (ABNORMAL) Comprehensive metabolic panel (07/18/2024 12:07 PM CDT) Pathologist [facility] Sodium 142 135 - 145 mmol/L Potassium, pl 4.6 3.3 - 4.9 mmol/L [facility] Chloride 106 97 - 110 mmol/L [facility] CO2 24 22 - 32 mmol/L [facility] Anion gap 12 2 - 15 mmol/L [facility] BUN 52(H) 6 - 25 mg/dL [facility] Creatinine 2.66(H) 0.80 - 1.30 mg/dL [facility] Glucose 164 70 - 199 mg/dL [facility] [...] 2022. Calcium 9.0 8.5 - 10.3 mg/dL [facility] Bilirubin, total 0.5 0.1 - 1.2 mg/dL [facility] Protein, pl 6.7 6.5 - 8.5 g/dL [facility] Albumin 4.0 3.5 - 5.0 g/dL [facility] Alk phos 126 40 - 130 Units/L [facility] ALT 10 7 - 55 Units/L [facility] AST 13 10 - 50 Units/L [facility] Blood 07/18/2024 12:0 7 PM CDT 07/18/2024 12:25 PM CDT Gautam Cope MD LAB BLOOD ORDERABLES Final Resul t [facility] Department of Laboratories [place] [id number] * SCAN - RADIOLOGY/IMAGING (07/01/2024 9:44 AM CDT) Anatomical Region Laterality Modality Other us Provider Scanning Final Result * (ABNORMAL) eGFR (06/14/2024 3:48 PM HUMAN RESOURCES ASSOCIATE) eGFR 26(L) >=60 mL/min/1. 73 m2 Comment: [...] last reviewed 2021. Blood 06/14/2024 3:48 PM HUMAN RESOURCES ASSOCIATE 06/14/2024 4:07 PM HUMAN RESOURCES ASSOCIATE us Lin Guerrero MD LAB BLOOD ORDERABLES Final Resul t [facility] [place] [address] * (ABNORMAL) Renal function panel (06/14/2024 3:48 PM HUMAN RESOURCES ASSOCIATE) Pathologist [facility] Sodium 143 135 - 145 mmol/L Potassium, pl 5.0(H) 3.3 - 4.9 mmol/L [facility] Chloride 105 97 - 110 mmol/L [facility] CO2 28 22 - 32 mmol/L [facility] Anion gap 10 2 - 15 mmol/L [facility] BUN 48(H) 6 - 25 mg/dL [facility] Creatinine 2.42(H) 0.80 - 1.30 mg/dL [facility] Glucose 152 70 - 199 mg/dL [facility] [...] 2022. Calcium 8.7 8.5 - 10.3 mg/dL [facility] Phosphorus, pl 3.1 2.3 - 4.5 mg/dL [facility] Albumin 3.9 3.5 - 5.0 g/dL [facility] Blood 06/14/2024 3:48 PM HUMAN RESOURCES ASSOCIATE 06/14/2024 4:03 PM HUMAN RESOURCES ASSOCIATE us Lin Guerrero MD LAB BLOOD ORDERABLES Final Resul t [facility] [place] [address] * Urinalysis reflex to microscopic (06/08/2024 10:47 AM HUMAN RESOURCES ASSOCIATE) Color, ur Straw Yellow Clarity, ur Clear Clear [facility] Specific gravity, ur 1.012 1.003 - 1.030 [facility] pH, urine 6.0 [facility] Comment: Interpretive Data U rine pH is affected by diet, medications, systemic acid-base disturbances, and renal tubular function. pH may affect urinary stone formation. For example, urine pH below 6.0 may help reduce the tendency for calcium phosphate stones and pH greater than 6.0 may reduce the tendency for uric acid stone formation. Source: [place] Current Interpretive Data was last revised on 2017 Protein, ur ql Trace Negative [facility] Glucose, ur ql Negative Negative [facility] Ketones, ur Negative Negative [facility] Bilirubin, ur Negative Negative [facility] Blood, ur Negative Negative [facility] Urobilinogen, ur <2.0 <2.0 mg/dL [facility] Nitrite, ur Negative Negative [facility] Leukocyte esterase, ur Negative Negative [facility] UA reflex comment Reflex conditions for microscopic UA not met. [facility] Urine 06/08/2024 10:4 7 AM HUMAN RESOURCES ASSOCIATE 06/08/2024 11:41 AM HUMAN RESOURCES ASSOCIATE us Lin Guerrero MD LAB URINE ORDERABLES Final Resul t Performing Organization Address [facility] Co de Phone Number [facility] [place] [address] * (ABNORMAL) eGFR (06/08/2024 10:44 AM HUMAN RESOURCES ASSOCIATE) eGFR 22(L) >=60 mL/min/1. 73 m2 Comment: [...] reviewed 2021. Blood 06/08/2024 10:4 4 AM HUMAN RESOURCES ASSOCIATE 06/08/2024 11:23 AM HUMAN RESOURCES ASSOCIATE Lin Guerrero MD LAB BLOOD ORDERABLES Final Resul t Performing Organization Address [facility] Co de Phone Number [facility] [place] [address] * (ABNORMAL) Differential, auto (06/08/2024 10:44 AM HUMAN RESOURCES ASSOCIATE) Neutrophil abs 7.8(H) 1.5 - 6.5 K/cumm Imm gran abs 0.1 0.0 - 0.1 K/cumm [facility] Lymphocyte abs 1.9 0.8 - 3.3 K/cumm [facility] Monocyte abs 1.0(H) 0.2 - 0.8 K/cumm [facility] Eosinophil abs 0.1 0.0 - 0.5 K/cumm [facility] Basophil abs 0.0 0.0 - 0.1 K/cumm [facility] Neutrophil pct 71.1 % [facility] Comment: Interpretive Data Percent cell count reference ranges are not reported, since discordance with absolute values may lead to misinterpretation of CBC data. Current Interpretive Data was last revised on 2017. Imm gran pct 0.8 % [facility] Comment: Interpretive Data Percent cell count reference ranges are not reported, since discordance with absolute values may lead to misinterpretation of CBC data. Current Interpretive Data was last revised on 2017. Lymphocyte pct 17.1 % [facility] Comment: Interpretive Data Percent cell count reference ranges are not reported, since discordance with absolute values may lead to misinterpretation of CBC data. Current Interpretive Data was last revised on 2017. Monocyte pct 9.3 % [facility] Comment: Interpretive Data Percent cell count reference ranges are not reported, since discordance with absolute values may lead to misinterpretation of CBC data. Current Interpretive Data was last revised on 2017. Eosinophil pct 1.3 % [facility] Comment: Interpretive Data [...] on 2017. Blood 06/08/2024 10:4 4 AM HUMAN RESOURCES ASSOCIATE 06/08/2024 11:23 AM HUMAN RESOURCES ASSOCIATE us Lin Guerrero MD LAB BLOOD ORDERABLES Final Resul t Performing Organization Address [facility] [[email or web address]] de Phone Number [facility] [place] [address] * (ABNORMAL) CBC with auto differential (06/08/2024 10:44 AM HUMAN RESOURCES ASSOCIATE) [facility] WBC 11.0(H) 3.8 - 9.9 K/cumm Hgb 12.0(L) 13.0 - 17.5 g/dL [facility] Hct 36.9(L) 38.9 - 50.3 % [facility] Plt 357 150 - 400 K/cumm [facility] MPV 9.8 9.1 - 12.3 fL [facility] RBC 4.27(L) 4.30 - 5.80 M/cumm [facility] MCV 86.4 81.3 - 96.4 fL [facility] MCH 28.1 27.1 - 33.3 pg [facility] MCHC 32.5 32.3 - 35.7 g/dL [facility] RDW CV 14.1 11.1 - 14.9 % [facility] RDW SD 44.2 35.7 - 48.1 fL [facility] NRBC abs 0.00 0.00 - 0.01 K/cumm [facility] Blood 06/08/2024 10:4 4 AM HUMAN RESOURCES ASSOCIATE 06/08/2024 11:23 AM HUMAN RESOURCES ASSOCIATE Lin Guerrero MD LAB BLOOD ORDERABLES Final Resul t Performing Organization Address [facility] [[email or web address]] de Phone Number [facility] [place] [address] * (ABNORMAL) Protein / creatinine ratio, urine, random (06/08/2024 10:44 AM HUMAN RESOURCES ASSOCIATE) [facility] Protein, ur, quant 21.3 mg/dL Comment: Interpretive Data No reference range established. Current interpretive data was last revised 2018. Creatinine Ur 52.2 mg/dL [facility] Comment: Interpretive Data No reference range established. Current interpretive data was last revised 2018. Protein/creatinin e ratio 408.0(H) 0.0 - 180.0 mg/g CR [facility] Urine 06/08/2024 10:4 4 AM HUMAN RESOURCES ASSOCIATE 06/08/2024 11:23 AM HUMAN RESOURCES ASSOCIATE us Lin Guerrero MD LAB URINE ORDERABLES Final Resul t Performing Organization Address [facility] [[email or web address]] de Phone Number [facility] [place] [employer] [place] [address] * Vitamin D 25 hydroxy (06/08/2024 10:44 AM HUMAN RESOURCES ASSOCIATE) Pathologist [facility] Vitamin D 25-OH 42 30 - 80 ng/mL Blood 06/08/2024 10:4 4 AM HUMAN RESOURCES ASSOCIATE 06/08/2024 11:23 AM HUMAN RESOURCES ASSOCIATE us Lin Guerrero MD LAB BLOOD ORDERABLES Final Resul t Performing Organization Address [facility] de Phone Number [facility] [place] [place] [address] * (ABNORMAL) PTH (06/08/2024 10:44 AM HUMAN RESOURCES ASSOCIATE) Pathologist [facility] PTH 78(H) 15 - 65 pg/mL Blood 06/08/2024 10:4 4 AM HUMAN RESOURCES ASSOCIATE 06/08/2024 11:23 AM HUMAN RESOURCES ASSOCIATE us Lin Guerrero MD LAB BLOOD ORDERABLES Final Resul t Performing Organization Address [facility] de Phone Number [facility] [place] [place] [address] * (ABNORMAL) Renal function panel (06/08/2024 10:44 AM HUMAN RESOURCES ASSOCIATE) Pathologist [facility] Sodium 142 135 - 145 mmol/L Potassium, pl 4.8 3.3 - 4.9 mmol/L [facility] Chloride 107 97 - 110 mmol/L [facility] CO2 27 22 - 32 mmol/L [facility] Anion gap 8 2 - 15 mmol/L [facility] BUN 60(H) 6 - 25 mg/dL [facility] Creatinine 2.72(H) 0.80 - 1.30 mg/dL [facility] Glucose 94 70 - 199 mg/dL [facility] [...] 2022. Calcium 9.0 8.5 - 10.3 mg/dL [facility] Phosphorus, pl 3.5 2.3 - 4.5 mg/dL [facility] Albumin 3.8 3.5 - 5.0 g/dL [facility] Blood 06/08/2024 10:4 4 AM HUMAN RESOURCES ASSOCIATE 06/08/2024 11:23 AM HUMAN RESOURCES ASSOCIATE us Lin Guerrero MD LAB BLOOD ORDERABLES Final Resul t [facility] [place] [address] * (ABNORMAL) eGFR (04/25/2024 9:45 AM HUMAN RESOURCES ASSOCIATE) eGFR 28(L) >=60 mL/min/1. 73 m2 Comment: [...] last reviewed 2021. Blood 04/25/2024 9:45 AM HUMAN RESOURCES ASSOCIATE 04/25/2024 9:51 AM HUMAN RESOURCES ASSOCIATE us Gautam Cope MD LAB BLOOD ORDERABLES Final Resul t Performing Organization Address [facility] [[email or web address]] de Phone Number [facility] [place] [employer] [place] [address] * (ABNORMAL) Vitamin D 25 hydroxy (04/25/2024 9:45 AM HUMAN RESOURCES ASSOCIATE) Vitamin D 25-OH 22(L) 30 - 80 ng/mL Blood 04/25/2024 9:45 AM HUMAN RESOURCES ASSOCIATE 04/25/2024 9:51 AM HUMAN RESOURCES ASSOCIATE Result Tenisha Cope MD LAB BLOOD ORDERABLES Final Resul t Performing Organization Address [facility] Phone Number [facility] [place] [employer] [place] [address] * (ABNORMAL) Total testosterone (04/25/2024 9:45 AM HUMAN RESOURCES ASSOCIATE) Testosterone <5.0(L) 193.0 - 740.0 ng/dL Blood 04/25/2024 9:45 AM HUMAN RESOURCES ASSOCIATE 04/25/2024 11:20 AM HUMAN RESOURCES ASSOCIATE Result Tenisha Cope MD LAB BLOOD ORDERABLES Final Resul t Performing Organization Address [facility] [[email or web address]] de Phone Number [facility] [place] [address] * PSA diagnostic (04/25/2024 9:45 AM HUMAN RESOURCES ASSOCIATE) PSA-Total <0.02 <=6.20 ng/mL Comment: Interpretive Data [...] last revised 21. Blood 04/25/2024 9:45 AM HUMAN RESOURCES ASSOCIATE 04/25/2024 9:51 AM HUMAN RESOURCES ASSOCIATE us Gautam Cope MD LAB BLOOD ORDERABLES Final Resul t Performing Organization Address [facility] [[email or web address]] de Phone Number [facility] Department [place] [place] [address] * Lactate dehydrogenase (LD) (04/25/2024 9:45 AM HUMAN RESOURCES ASSOCIATE) Lactate dehydrogenase (LDH) 157 100 - 250 Units/L Blood 04/25/2024 9:45 AM HUMAN RESOURCES ASSOCIATE 04/25/2024 9:51 AM HUMAN RESOURCES ASSOCIATE us Gautam Cope MD LAB BLOOD ORDERABLES Final Resul t Performing Organization Address [facility] [[email or web address]] de Phone Number [facility] [place] [place] [address] * (ABNORMAL) Hemoglobin A1c (04/25/2024 9:45 AM HUMAN RESOURCES ASSOCIATE) Hgb A1C 8.1(H) 4.0 - 5.6 % Estimated Average Glucose 186 mg/dL [facility] Comment: The ADA recommends reporting an estimated Average Glucose (eAG) with all Hemoglobin A1c results using the equation derived from a study of 507 normal and diabetic adults. Minority populations were underrepresented and children were not included. (Diabetes Care 2020; 43(S1): S66-S76). The eAG is not equivalent to a fasting glucose. Blood 04/25/2024 9:45 AM HUMAN RESOURCES ASSOCIATE 04/25/2024 9:51 AM HUMAN RESOURCES ASSOCIATE us Gautam Cope MD LAB BLOOD ORDERABLES Final Resul t Performing Organization Address [facility] Co de Phone Number [facility] [place] [address] * Vitamin B12 (04/25/2024 9:45 AM HUMAN RESOURCES ASSOCIATE) Vitamin B12 390 230 - 1,250 pg/mL Blood 04/25/2024 9:45 AM HUMAN RESOURCES ASSOCIATE 04/25/2024 11:20 AM HUMAN RESOURCES ASSOCIATE us Gautam Cope MD LAB BLOOD ORDERABLES Final Resul t Performing Organization Address [facility] [[email or web address]] de Phone Number [facility] [place] [address] * (ABNORMAL) Comprehensive metabolic panel (04/25/2024 9:45 AM HUMAN RESOURCES ASSOCIATE) Pathologist [facility] Sodium 142 135 - 145 mmol/L Potassium, pl 4.5 3.3 - 4.9 mmol/L [facility] Chloride 106 97 - 110 mmol/L [facility] CO2 29 22 - 32 mmol/L [facility] Anion gap 7 2 - 15 mmol/L [facility] BUN 41(H) 6 - 25 mg/dL [facility] Creatinine 2.25(H) 0.80 - 1.30 mg/dL [facility] Glucose 201(H) 70 - 199 mg/dL [facility] [...] 2022. Calcium 9.2 8.5 - 10.3 mg/dL [facility] Bilirubin, total 0.3 0.1 - 1.2 mg/dL [facility] Protein, pl 6.7 6.5 - 8.5 g/dL [facility] Albumin 3.9 3.5 - 5.0 g/dL [facility] Alk phos 128 40 - 130 Units/L [facility] ALT 10 7 - 55 Units/L [facility] AST 12 10 - 50 Units/L [facility] Blood 04/25/2024 9:45 AM HUMAN RESOURCES ASSOCIATE 04/25/2024 9:51 AM HUMAN RESOURCES ASSOCIATE us Gautam Cope MD LAB BLOOD ORDERABLES Final Resul t [facility] [place] [address] * (ABNORMAL) Differential, auto (04/25/2024 9:40 AM HUMAN RESOURCES ASSOCIATE) Neutrophil abs 9.1(H) 1.5 - 6.5 K/cumm Comment:Testing performed by : [facility], [address] [place] [phone] Lymphocyte abs 1.6 0.8 - 3.3 K/cumm [facility] Comment:Testing performed by : [facility], [address] [place] [phone] Monocyte abs 0.9(H) 0.2 - 0.8 K/cumm [facility] Comment:Testing performed by : [facility], [address] [place] [phone] Eosinophil abs 0.2 0.0 - 0.5 K/cumm [facility] Comment:Testing performed by : [facility], [address] [place] [phone] Basophil abs 0.1 0.0 - 0.1 K/cumm [facility] Comment:Testing performed by : [facility], [address] [place] [phone] Neutrophil pct 76.7 % [facility] Comment: Interpretive Data Percent cell count reference ranges are not reported, since discordance with absolute values may lead to misinterpretation of CBC data. Current Interpretive Data was last revised on 2017. Testing performed by: [facility], [address] [place] [phone] Lymphocyte pct 13.2 % [facility] Comment: Interpretive Data Percent cell count reference ranges are not reported, since discordance with absolute values may lead to misinterpretation of CBC data. Current Interpretive Data was last revised on 2017. Testing performed by: [facility], [address] [place] [phone] Monocyte pct 7.1 % [facility] Comment: Interpretive Data Percent cell count reference ranges are not reported, since discordance with absolute values may lead to misinterpretation of CBC data. Current Interpretive Data was last revised on 2017. Testing performed by: [facility], [address] [place] [phone] Eosinophil pct 1.8 % [facility] Comment: Interpretive Data Percent cell count reference ranges are not reported, since discordance with absolute values may lead to misinterpretation of CBC data. Current Interpretive Data was last revised on 2017. Testing performed by: [facility], [address] [place] [phone] Basophil pct 1.2 % [facility] Comment: Interpretive Data Percent cell count reference ranges are not reported, since discordance with absolute values may lead to misinterpretation of CBC data. Current Interpretive Data was last revised on 2017. Testing performed by: [facility], [address] [place] [phone] Blood 04/25/2024 9:40 AM HUMAN RESOURCES ASSOCIATE 04/25/2024 9:45 AM HUMAN RESOURCES ASSOCIATE us Gautam Cope MD LAB BLOOD ORDERABLES Final Resul t [facility] [place] [address] * (ABNORMAL) CBC with auto differential (04/25/2024 9:40 AM HUMAN RESOURCES ASSOCIATE) WBC 11.9(H) 3.8 - 9.9 K/cumm Comment:Testing performed by : [facility], [address] [place] [address] Hgb 12.2(L) 13.0 - 17.5 g/dL [facility] Comment:Testing performed by : [facility], [address] [place] [address] Hct 38.8(L) 38.9 - 50.3 % [facility] Comment:Testing performed by : [facility], [address] [place] [address] Plt 369 150 - 400 K/cumm [facility] Comment:Testing performed by : [facility], [address] [place] [address] MPV 7.7 6.8 - 10.4 fL [facility] Comment:Testing performed by : [facility], [address] [place] [address] RBC 4.38 4.30 - 5.80 M/cumm [facility] Comment:Testing performed by : [facility], [address] [place] [address] MCV 88.6 81.3 - 96.4 fL [facility] Comment:Testing performed by : [facility], [address] [place] [address] MCH 27.8 27.1 - 33.3 pg [facility] Comment:Testing performed by : [facility], [address] [place] [address] MCHC 31.3(L) 32.3 - 35.7 g/dL [facility] Comment:Testing performed by : [facility], [address] [place] [address] RDW CV 14.7 11.1 - 14.9 % [facility] Comment:Testing performed by : [facility], [address] [place] [phone] NRBC abs 0.00 0.00 - 0.01 K/cumm [facility] Comment:Testing performed by : [facility], [address] [place] [phone] Blood 04/25/2024 9:40 AM HUMAN RESOURCES ASSOCIATE 04/25/2024 9:45 AM HUMAN RESOURCES ASSOCIATE us Gautam Cope MD LAB BLOOD ORDERABLES Final Resul t [facility] [place] [address] * Dexa TBS Axial Skeleton Bone Density 1 or more sites (04/24/2024 11:56 AM HUMAN RESOURCES ASSOCIATE) Anatomical Region Laterality Modality Wrist, Body N/A Radiographic Roberta ging Narrative 04/24/2024 12:52 PM HUMAN RESOURCES ASSOCIATE Patient Name: David Wei Date of : 1940 Date of scan: 04/24/2024 Bone mineral density was performed on a [employer] Discovery Densitometer. Based on machine cross-calibration and [...] mineral density scan were prepared by Alisha Souza)([facility])who is accredited by the International Society of Clinical Densitometry. The overall patient assessment and scan interpretation were performed by Daquan George M.D. who is certified by the International Society of Clinical Densitometry. [id number] Daquan George MD IM DXA PROCEDURES Final Result * (ABNORMAL) Lipid panel (03/08/2023 11:55 AM HUMAN RESOURCES ASSOCIATE) Cholesterol 193 30 - 199 mg/dL [facility] Comment: Interpretive Data Ages < or [...] revised on 2017. Triglycerides 250(H) <=149 mg/dL [facility] Comment: Interpretive Data Ages < or [...] revised on 2017. HDL 36(L) >=40 mg/dL [facility] Comment: Interpretive Data Ages < or [...] on 2017. LDL, calculated 107 <=129 mg/dL [facility] Comment: Interpretive Data Ages < or [...] revised on 2017. Non-HDL Cholesterol 157 mg/dL [facility] Comment: Interpretive Data Ages < or [...] last revised on 2017. Chol/HDL ratio 5 [facility] Blood 03/08/2023 11:5 5 AM HUMAN RESOURCES ASSOCIATE 03/08/2023 3:48 PM HUMAN RESOURCES ASSOCIATE us Kraig Ching MD LAB BLOOD ORDERABLES Final Re sult [facility] Department [place] [address] * (ABNORMAL) Albumin Creatinine Ratio, Urine (01/01/2023 10:40 AM CDT) Albumin Ur 227.3 mg/L [facility] Comment: Interpretive Data No reference range established. Current interpretive data was last revised 2018. Creatinine Ur 66.5 mg/dL [facility] Comment: Interpretive Data No reference range established. Current interpretive data was last revised 2018. Albumin Creatinine Ratio, Ur 342(H) 1 - 29 mg/g [facility] Urine 01/01/2023 10:4 0 AM CDT 01/01/2023 10:45 AM CDT us Kraig Ching MD LAB URINE ORDERABLES Final Re sult [facility] [place] [address] * DIABETES EYE EXAM (06/29/2018) Diabetic Eye Exam Normal us Historical Provider HEALTH MAINTENANCE Final Result from Last 3 Months or Most Recently Relevant to Health Maintenance Insurance [facility] MEDICARE T MEDICARE [facility] MEDICARE [facility] MEDICARE Advance Directives For more information, please contact: [phone] * Full Code (Latest Code Status on File) Date Activated Date Inactivated Comments 12/16/2017 2:44 PM 12/16/2017 7:18 PM Care Teams Office Bookkeeper Relationship Specialty Start Date End Date Kraig Ching MD [address] [facility] [address] [place] [address] PCP - General 07/10/16 Gautam Cope MD [address] [facility] [address] [place] [address] Medical Oncologist/Horse Racetrack Manager Medical Oncology 08/18/18 Tramaine Roe MD [address] [facility] [address] [place] [address] Referring Physician Urology 08/18/18 Sukhwinder Uribe MD [address] [facility] [address] [place] [address] Consulting Physician Urology 08/18/18 Shay Guillermo MD [address] [facility] [address] [place] [address] Referring Physician Urology 08/18/18 Marsha Landis, RN Registered Nurse 11/17/18
--- OUTSIDE RECORDS SUMMARY | 2024-07-21 07:33 | XMS_ITS | Encounter Summary ---
Author Organization [facility] Address [address] [place] [address] Phone Care Team Providers Care Oyster Grower Name Role Phone Kraig Ching MD Primary Care Provider [phone] Gautam Cope MD Unavailable Tramaine Roe MD Unavailable [phone] Sukhwinder Uribe MD Unavailable [phone] Shay Guillermo MD Unavailable [phone] Marsha Landis RN Unavailable Unavailab Ilene Kaur RN Unavailable [phone] Clarissa Luna RN Unavailable [phone] Encounter Details Date Type Department Care Team (Late st Contact Info) Description 12/06/2018 Telephone [facility] Oncology [address] [facility] Advanced Medicine 7th [place] [address] Salena Bryan NP [address] [place] [address] Social History Tobacco Use Types Packs/Day Years [...] file 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 Gender Identity Not on file Sexual Orientation Not on file documented as of this encounter Plan of Treatment Not on file documented as of this encounter Visit Diagnoses Not on filedocumented in this encounter Care Teams Oyster Grower Relationship Specialty Start Date End Date Kraig Ching MD [address] [place] [address] PCP - General 07/10/16 Gautam Cope MD [address] [place] [address] Medical Oncologist/Maintenance Mechanic Medical Oncology 08/18/18 Tramaine Roe MD [address] [place] [address] Referring Physician Urology 08/18/18 Sukhwinder Uribe MD [address] [place] [address] Consulting Physician Urology 08/18/18 Shay Guillermo MD [address] [place] [address] Referring Physician Urology 08/18/18 Marsha Landis, RN Registered Nurse 11/17/18 Ilene Fragoso RN [address] [place] [address] Sling Operator 12/23/18 11/01/19 Clarissa Luna RN [address] [place] [address] Sling Operator 04/04/24 04/26/24 documented as of this encounter
[2024-07-21] MEDS: LACTATED RINGERS 700 ML 999 ML IV CONT (07:45)
[2024-07-21] MEDS: LACTATED RINGERS 1,000 ML 999 ML IV CONT ×2 (07:45)
[2024-07-21] MEDS: VANCOMYCIN 1,250 MG/NS 250 ML 1,250 MG/250 ML BAG 166.67 MG IVPB (08:10)
[2024-07-21 08:27] LABS: Influenza A QL RT-PCR Negative (Negative); Influenza B QL RT-PCR Negative (Negative); RSV RNA, RT-PCR Negative (Negative); SARS-CoV-2 RNA PCR Negative (Negative)
[2024-07-21 08:49] LABS: Add Urine Microscopic? YES; Appearance Urine Clear (Clear); Bacteria Urine None Seen /hpf; Bilirubin Urine Negative (Negative); Blood Urine Negative (Negative); Color Urine Yellow (Yellow); Glucose Urine UA Negative (Negative); Ketones Urine Trace mg/dL (Negative); Leukocyte Esterase Ur Negative LEU/UL (Negative); Nitrate Urine Negative (Negative); Protein Urine 2+ mg/dL (Negative); RBC Urine 0-2 /hpf (0-2); Specific Grav Ur 1.011 (1.001-1.035); Squamous Epithelial Cell Urine None Seen /hpf (Few); Urobilinogen Urine 0.2 mg/dL (<2.0); WBC Urine 0-5 /hpf (0-3)
[2024-07-21 09:14] LABS: MRSA (PCR) NOT DETECTED (NOT DETECTE)
[2024-07-21] MEDS: VANCOMYCIN 1,000 MG/NS 250 ML 1,000 MG/250 ML BAG 250 MG IVPB (09:31)
--- NOTE | 2024-07-21 10:47 | ADMGEN ---
This patient, David Wei, was admitted to [facility] Surg Room 310-01. Patient/family oriented to hospital policies and general routines including ID bracelet, bed and alarms, visiting hours, pain management, procedures, bathroom and other care routines, personal items, smoking policy, room service/diet, and visiting hours. Information on how to activate the Rapid Response Team has been discussed. Patient/Family are encouraged to report perceived risks to care and to ask questions if they do not understand what they are told or what they should do.
--- OUTSIDE RECORDS SUMMARY | 2024-07-21 11:57 | XMS_ITS | Clinical Summary ---
Author Organization [facility] Address [address] [place] [address] Care Team Providers Care Sql Data Analyst Name Role Phone Unavailable Primary Care Provider [...]
--- OUTSIDE RECORDS SUMMARY | 2024-07-21 11:57 | XMS_ITS | Encounter Summary ---
Author Organization [facility] Healthcare Address [address] [place] [address] Care Team Providers Care Retail Asset Protection Specialist Name Role Phone Kraig Ching MD Primary Care Provider [phone] Gautam Cope MD Unavailable Tramaine Roe MD Unavailable [phone] Sukhwinder Uribe MD Unavailable [phone] Shay Guillermo MD Unavailable [phone] Marsha Landis RN Unavailable Unavailab le Encounter Details Date Type Department Care Team (Latest Contact Info) Description 07/19/2024 7:45 PM CDT - 07/19/2024 11:59 PM CDT Hospital Encounter [facility] [address] [place] [address] Urinary frequency Discharge Disposition: Discharge to home or self care Social History Tobacco Use Types Packs/Day Years Used Date Smoking Tobacco: Former Cigarettes 0.3 52 1 958 - 2009 Passive Smoke Exposure: Past Smokeless Tobacco: Never Comments:Smoking History Pac ks/day: 10 Cigarettes Alcohol Use Standard Drinks/Week Comments Yes 0 (1 standard drink = 0.6 oz pur e alcohol) Occasional glass of wine. [facility] Utilities Answer Date Recorded In the past 12 months has [employer], gas, oil, or water company threatened to [...] often do you attend chur ch or methodist services? Never 04/04/2024 Do you belong to [...] any time in the past 12 m [facility], were you homeless or living in a mcc (including now)? No 04/04/2024 Personal Safety Answer Date Recorded Have you ever been in or are you currently in a harmful physical or emotional relationship or is someone making you feel afraid or unsafe? 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 - Ensure [facility] has appropriate referral and orders to establish care with patient. - Follow up with patient to ensure initial visit was completed by [facility] and that a [facility] plan has been started. [facility] General Goal - Patient schedules and keeps appointments with all recommended providers ACO Care Management Improving( 1:22 PM OYSTER GRADER) No Clarissa Luna RN Note: Problem: Potential [...] frequency documented in this encounter Results * Urine culture Urine, clean voided (07/19/2024 12:00 PM CDT) Report Final Report: No growth Comment:Testing performed by : [facility], [address] [facility], [place]., [address] Urine, clean voided 07/19/2024 12:00 PM CDT 07/20/2024 2:19 AM CDT Rich RICK CH - 07/21/2024 7:38 AM CDT Testing performed by [facility] Microbiology Laboratory ([phone]) [facility] MICROBIOLOGY - GENER AL ORDERABLES Final Result [facility] [address] [place] [address] documented in this encounter Visit Diagnoses Diagnosis Urinary frequency documented in this encounter Care Teams Retail Asset Protection Specialist Relationship Specialty Start Date End Date Kraig Ching MD [address] [place] [address] PCP - General 07/10/16 Gautam Cope MD [address] [place] [address] Medical Oncologist/Stripe Marker Medical Oncology 08/18/18 Tramaine Roe MD [address] [place] [address] Referring Physician Urology 08/18/18 Sukhwinder Uribe MD [address] [place] [address] Consulting Physician Urology 08/18/18 Shay Guillermo MD [address] [place] [address] Referring Physician Urology 08/18/18 Marsha Landis, RN Registered Nurse 11/17/18 documented as of this encounter
--- OUTSIDE RECORDS SUMMARY | 2024-07-21 11:57 | XMS_ITS | Encounter Summary ---
Author Organization [facility] Healthcare Address [address] [place] [address] Care Team Providers Care Clinical Project Assistant Name Role Phone Kraig Ching MD Primary Care Provider [phone] Gautam Cope MD Unavailable Tramaine Roe MD Unavailable [phone] Sukhwinder Uribe MD Unavailable [phone] Shay Guillermo MD Unavailable [phone] Marsha Landis RN Unavailable Unavailab le Encounter Details Date Type Department Care Team (Late st Contact Info) Description 07/21/2024 Results Follow-Up [facility]ient [facility] at [address] [address] Fadi Corrales NP [address] [place] [address] [address] [place] [address] Social History Tobacco Use Types Packs/Day Years Used Date Smoking Tobacco: Former Cigarettes 0.3 52 1 958 - 2009 Passive Smoke Exposure: Past Smokeless Tobacco: Never Comments:Smoking History Pac ks/day: 10 Cigarettes Alcohol Use Standard Drinks/Week Comments Yes 0 (1 standard drink = 0.6 oz pur e alcohol) Occasional glass of wine. [facility] Utilities Answer Date Recorded In the past 12 months has e [employer], gas, oil, or water company threatened to [...] any clubs o r organizations such as roman catholic groups, unions, fraternal or athletic groups, or [...] were you homeless or living in a fpc (including now)? No 04/04/2024 Personal Safety Answer Date Recorded Have you ever been in or are you currently in a harmful physical or emotional relationship or is someone making you feel afraid or unsafe? Denies 06/09/2023 Sex and Gender Information Value Date Recorded Sex Assigned at Not on file Legal Sex Male 4:46 PM NEEDLEWORKER Gender Identity Not on file Sexual Orientation Not on file documented as of this encounter Plan of Treatment Not on file documented as of this encounter Goals Goal Patient Goal Type Associated Problems Recent Progress Patient-Stated? Author [facility] General Goal - Patient establishes care with [facility] ACO Care Management On track(2023 1:22 PM NEEDLEWORKER) No Clarissa Luna RN Note: Problem: Lack of [facility] communication Interventions: - Provide coordination between [facility] company and patient. - Ensure [facility] has appropriate referral and orders to establish care with patient. - Follow up with patient to ensure initial visit was completed by [facility] and that a [facility] plan has been started. [facility] General Goal - Patient schedules and keeps appointments with all recommended providers ACO Care Management Improving( 1:22 PM NEEDLEWORKER) No Clarissa Luna RN Note: Problem: Potential [...] filedocumented in this encounter Care Teams Clinical Project Assistant Relationship Specialty Start Date End Date Kraig Ching MD [address] [facility] [address] [place] [address] PCP - General 07/10/16 Gautam Cope MD [address] [facility] [address] [place] [address] Medical Oncologist/Trestle Mainternance Laborer Medical Oncology 08/18/18 Tramaine Roe MD [address] [address] Referring Physician Urology 08/18/18 Sukhwinder Uribe MD [id number] [place] [address] Consulting Physician Urology 08/18/18 Shay Guillermo MD [id number] [place] [address] Referring Physician Urology 08/18/18 Marsha Landis, RN Registered Nurse 11/17/18 documented as of this encounter
--- OUTSIDE RECORDS SUMMARY | 2024-07-21 11:58 | XMS_ITS | Clinical Summary ---
Author Organization [facility] Address [address] [place] [address] Care Team Providers Care Sap Business Analyst Name Role Phone Kraig Ching MD Primary Care Provider [phone] Gautam Cope MD Unavailable Tramaine Roe MD Unavailable [phone] Sukhwinder Uribe MD Unavailable [phone] Shay Guillermo MD Unavailable [phone] Marsha Landis RN Unavailable Unavailab le Allergies [...] 05/30/2024 Assessment & Plan (06/08/2024 4:46 AM JUNCTION MAKER): Continue current regimen.Limit nephrotoxins.Reviewed creatinine. Avoid [...] 03/08/2023 Assessment & Plan (06/08/2024 4:46 AM JUNCTION MAKER): Hypertension is controlled. Continue current regimen. Assessment & Plan (10/05/2023 12:54 PM CDT): Hypertension is controlled. Decrease carvedilol to 12.5 mg. Assessment & Plan (03/08/2023 7:11 AM JUNCTION MAKER): Hypertension is controlled. Continue current regimen. 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 Avoid NSAIDS. Assessment & Plan (10/05/2023 5:50 AM CDT): Continue current regimen.Limit nephrotoxins.Reviewed creatinine. Avoid NSAIDS. Assessment & Plan (03/08/2023 7:12 AM JUNCTION MAKER): Continue current regimen.Limit nephrotoxins.Reviewed creatinine. Avoid NSAIDS. CKD (chronic kidney disease) 03/08/2022 Assessment & Plan (06/08/2024 4:45 AM JUNCTION MAKER): Limit nephrotoxins. Monitor creatinine. Avoid NSAIDS.Follow with Nephrology. 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 chronic kidney disease 2021 Gastroesophageal reflux disease 04/08/2021 Assessment & Plan (03/08/2023 11:17 AM JUNCTION MAKER): Reviewed dietary modifications. Continue PPI. Assessment & Plan (08/18/2022 6:36 AM CDT): Reviewed dietary modifications. Continue PPI. Assessment & Plan (02/12/2022 6:03 AM CDT): Reviewed dietary modifications. Continue PPI. Assessment & Plan (04/08/2021 5:55 AM JUNCTION MAKER): Reviewed dietary modifications. Continue PPI. 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 Continue home PT exercises. Advised using a walker. Assessment & Plan (08/18/2022 11:47 AM CDT): Continue oxycodone. Continue home PT exercises. Advised using a walker. Assessment & Plan (02/12/2022 11:41 AM CDT): Continue oxycodone. Continue home PT exercises. A prescription for a walker. Assessment & Plan (04/08/2021 5:55 AM JUNCTION MAKER): Continue oxycodone. Continue home PT exercises. Continue walker. Assessment & Plan (12/26/2020 10:48 AM CDT): Continue oxycodone. Script for walker. Assessment & Plan (09/26/2020 11:29 AM CDT): Continue ROM exercises and follow with Pain Management. Refill oxycodone as needed. Prostate cancer 09/06/2018 Assessment & Plan (06/08/2024 4:46 AM JUNCTION MAKER): Follow with Oncology. Continue Zytiga. Assessment & [...] 01/25/2018 Assessment & Plan (03/07/2018 6:54 AM JUNCTION MAKER): Hypertension is controlled. Continue current regimen. [...] creatinine. Assessment & Plan (04/08/2021 5:54 AM JUNCTION MAKER): Hypertension is controlled. Continue current regimen.Limit [...] NSAIDS. Assessment & Plan (03/07/2018 6:55 AM JUNCTION MAKER): Hypertension is controlled. Continue current regimen. Limit nephrotoxins. Monitor creatinine. Avoid NSAIDS. Assessment & Plan (11/25/2017 7:09 AM CDT): Limit nephrotoxins. Monitor creatinine. Avoid NSAIDS. Duodenal ulcer 11/25/2017 Assessment & Plan (11/25/2017 10:16 AM CDT): Reviewed GI note . Continue pantoprazole. Avoid NSAIDS. Refer for EGD. PAF (paroxysmal atrial fibrillation) 10/22/2017 Assessment & Plan (03/07/2018 6:54 AM JUNCTION MAKER): Continue rate control. Continue anticoagualtion. Anticipate [...] NSAIDS. Assessment & Plan (03/07/2018 6:55 AM JUNCTION MAKER): Limit nephrotoxins. Monitor creatinine. Avoid NSAIDS. [...] diet. Assessment & Plan (04/08/2021 10:17 AM JUNCTION MAKER): Reviewed HgBA1C elevated at 10.6 on [...] therapy. Assessment & Plan (03/07/2018 6:57 AM JUNCTION MAKER): Continue pravastatin. He had myalgias on [...] diet. Assessment & Plan (03/02/2017 6:53 AM JUNCTION MAKER): Hypertension is controlled. Continue current regimen. Reviewed low sodium diet. Assessment & Plan (01/15/2017 6:44 AM CDT): Reviewed proper diet. Continue statin therapy. Hyperlipidemia 01/12/2012 Assessment & Plan (06/08/2024 4:46 AM JUNCTION MAKER): Continue pravastatin. Order lipid panel at next [...] 05/28/2023 Assessment & Plan (03/08/2023 11:40 AM JUNCTION MAKER): Agree with cataract surgery. He has [...] 08/30/2017 Assessment & Plan (03/02/2017 10:48 AM JUNCTION MAKER): Mood is improved. Monitor off medication. [...] 200. Assessment & Plan (03/07/2018 6:56 AM JUNCTION MAKER): Continue current regimen. Advised annual eye exam.Limit nephrotoxins. Monitor creatinine. Avoid NSAIDS. Assessment & Plan (11/25/2017 10:16 AM CDT): Continue current regimen and add Januvia.Advised annual eye exam. Limit nephrotoxins. Monitor creatinine. Avoid NSAIDS. Assessment & Plan (01/15/2017 6:44 AM CDT): Continue current regimen. Advised annual eye exam. Reviewed proper diet. Continue statin therapy. Encounters Date Type Department Care Team Description 07/21/2024 Results Follow-Up [facility]ient Care at [address] [address] Fadi Corrales NP 07/19/2024 7:45 PM CDT - 07/19/2024 11:59 PM CDT Hospital Encounter [address] [address] Urinary frequency Discharge Disposition: Discharge to home or self care 07/19/2024 2:00 PM CDT Office Visit [facility] Care at [address] [address] Clau Childers PA Urinary frequency (Primary Dx); Leukocytosis, unspecified type 07/18/2024 1:45 PM CDT Infusion [facility] - Infusion [address] [facility] Floor [address] [place] [address] Prostate cancer (HCC) (Primary Dx) 07/18/2024 1:00 PM CDT Office Visit [facility] Oncology [facility] Floor 5 [place] [phone] Gautam Cope MD Prostate cancer (HCC) (Primary Dx) 07/18/2024 12:00 PM CDT Lab [facility] - Lab Collection [address] [facility] Floor [address] [place] [address] Prostate cancer (HCC) 07/18/2024 Patient Self-Triage [facility] [address] [place] [address] Mychart, Generic Provider 07/01/2024 Orders Only [facility] Information Management [address] [place] [address] Scanning, Provider 06/14/2024 6:15 PM JUNCTION MAKER Lab [facility] Advanced [facility] ([facility]) [address] [place] [phone] GABRIELA (acute kidney injury) 06/14/2024 3:00 PM JUNCTION MAKER Office Visit [facility] Nephrology [facility] 5th [place] [address] [place] [address] Lin Guerrero MD Chronic kidney disease, stage 3b (HCC) (Primary Dx); GABRIELA (acute kidney injury); Hypertension, essential; Secondary hyperparathyroidism of renal origin 06/08/2024 12:00 PM JUNCTION MAKER Lab [facility] Medicine [facility] ([facility]) [address] [place] [phone] 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 chronic kidney disease (HCC); Hypertension, essential; Secondary hyperparathyroidism of renal origin; Stage 3 chronic kidney disease, unspecified whether stage 3a or 3b CKD (HCC); Primary hypertension; Vitamin D deficiency; Type 2 diabetes mellitus with stage 3a chronic kidney disease, with long-term current use of insulin (HCC); Fatigue, unspecified type; GABRIELA (acute kidney injury) 06/08/2024 9:45 AM JUNCTION MAKER Office Visit [address] [address] Kraig Ching MD Hypertension, essential (Primary Dx); Prostate cancer (HCC); Type 2 diabetes mellitus with stage 3b chronic kidney disease, with long-term current use of insulin (HCC); Stage 3b chronic kidney disease (HCC); Hyperlipidemia, unspecified hyperlipidemia type 05/24/2024 Orders Only [facility] Nephrology [address] [place] [address] [place] [address] Lin Guerrero MD 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 [...] type; GABRIELA (acute kidney injury) 05/02/[address] [address] Kraig Ching MD Medical Question/Miscellaneous 04/28/[address] [place] [address] Stef Roman NP 04/28/2024 Orders Only [address] [place] [address] Stef Roman NP 04/25/2024 11:45 AM JUNCTION MAKER Infusion [facility] - Infusion [address] [facility] Floor [address] [place] [address] Prostate cancer (HCC) (Primary Dx) 04/25/2024 10:45 AM JUNCTION MAKER Office Visit [facility] Oncology [address] [facility] Floor [address] [place] [address] Gautam Cope MD Prostate cancer ([facility]) 04/25/2024 9:45 AM JUNCTION MAKER Lab [facility] - Lab Collection [address] [facility] Floor [address] [place] [address] Prostate cancer ([facility]) 04/24/2024 12:20 PM JUNCTION MAKER Office Visit [address] [place] [address] [place] [phone] Daquan George MD Age-related osteoporosis without current pathological fracture (Primary Dx); Alkaline phosphatase elevation; Thyroid condition 04/24/2024 11:50 AM JUNCTION MAKER Clinical Support [address] [place] [phone] Age-related osteoporosis without current pathological fracture (Primary Dx) 04/24/[address] [place] [address] [place] [phone] Daquan George MD from Last 3 Months [...] 01/17/2019 Influenza, Unspecified 01/17/2019(Deferred: Daisy ent Refused) [employer]) SARS-CoV-2 Vaccination 06/14/2020, 06/14/2020 Pfizer SARS-CoV-2 [...] pur e alcohol) Occasional glass of wine. Novel[employer]Lab[employer] Answer Date Recorded In the past 12 months has [employer], gas, oil, or water [employer] threatened to shut off services in your [...] any clubs o r organizations such as restoration groups, unions, fraternal or athletic groups, or [...] any time in the past 12 m [facility], were you homeless or living in a fdc (including now)? No 04/04/2024 Personal Safety Answer Date Recorded Have you ever been in or are you currently in a harmful physical or emotional relationship or is someone making you feel afraid or unsafe? Denies 06/09/2023 Sex and Gender Information Value Date Recorded Sex Assigned at Not on file Legal Sex Male 4:46 PM JUNCTION MAKER Gender Identity Not on file Sexual [...] cm (5' 9 ) 06/14/2024 2:58 PM JUNCTION MAKER Body Mass Index 29.98 06/14/2024 2:58 PM JUNCTION MAKER Plan of Treatment Health Maintenance Due Date Last Done Comments DTaP/Tdap/Td Vaccine (1 - Tdap) 11/08/1951 Hepatitis B Screening 1958 Zoster Vaccine (1 of 2) 11/08/1959 Well Visit 65+ 03/27/2021 03/27/2020, 01/17/2019 Albumin Creatinine Ratio, Urine 01/02/2024 01/01/2023, 12/26/2020, 05/22/2019, Additional history exists Lipid Panel 03/08/2024 03/08/2023, 1106/2021, 12/26/2020, Additional history exists Dilated Eye Exam [...] Additional history exists Foot Exam 06/08/2025 06/08/2024, 3 , 08/19/2023, Additional history exists eGFR 07/18/2025 07/18/2024, 0308/2024, 06/08/2024, Additional history exists Pneumococcal vaccine 65+ Completed 08/08/2021, 11/2018 Goals Goal Patient Goal Type Associated Problems Recent Progress Patient-Stated? Author ZAK General Goal - Patient establishes care with [facility] ACO Care Management On track(2023 1:22 PM JUNCTION MAKER) No Clarissa Luna RN Note: Problem: Lack of [facility] communication Interventions: - Provide coordination between [facility] company and patient. - Ensure [facility] has appropriate referral and orders to establish care with patient. - Follow up with patient to ensure initial visit was completed by [facility] and that a [facility] plan has been started. ZAK General Goal - Patient schedules and keeps appointments with all recommended providers ACO Care Management Improving( 1:22 PM JUNCTION MAKER) No Clarissa Luna, RN Note: Problem: Potential for medical complications [...] medication regimen. Medical Devices Implanted Type Area Electrical Engineer Mep Device Identifier Shelf Expiration Date Model / Serial / Lot [employer] Lens Iol Cna0t0.195 Clareon Uva Autonom Cna0t0.195 - [id number] - [id number] Implanted:Qty: 1 on 06/09/2023 by Higinio Connolly MD at [facility] Lens Right: Eye [employer] [id number] 10/27/2025 CNA0T0.19 5 / [id number] / [employer] Lens Iol Cna0t0.200 Arabellaon [employer]va Autonom Cna0t0.200 - [id number] - [id number] Implanted:Qty: 1 on 05/19/2023 by Higinio Connolly MD at [facility] Left: Eye [employer] [id number] 10/06/2025 CNA0T0.20 0 / [id number] / Procedures Procedure Name Priority Date/Time [...] AM CDT EGFR Routine 06/14/2024 3:48 PM JUNCTION MAKER GABRIELA (acute kidney injury) RENAL FUNCTION PANEL Routine 06/14/2024 3:48 PM JUNCTION MAKER GABRIELA (acute kidney injury) URINALYSIS AND REFLEX TO MICROSCOPIC Routine 06/08/2024 10:47 AM JUNCTION MAKER 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 chronic kidney disease (HCC) Hypertension, essential Secondary hyperparathyroidism of renal origin Stage 3 chronic kidney disease, unspecified whether stage 3a or 3b CKD (HCC) Primary hypertension Vitamin D deficiency Type 2 diabetes mellitus with stage 3a chronic kidney disease, with long-term current use of insulin (HCC) Fatigue, unspecified type GABRIELA (acute kidney injury) EGFR Routine 06/08/2024 10:44 AM JUNCTION MAKER 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 chronic kidney disease (HCC) Hypertension, essential Secondary hyperparathyroidism of renal origin Stage 3 chronic kidney disease, unspecified whether stage 3a or 3b CKD (HCC) Primary hypertension Vitamin D deficiency Type 2 diabetes mellitus with stage 3a chronic kidney disease, with long-term current use of insulin (HCC) Fatigue, unspecified type GABRIELA (acute kidney injury) DIFFERENTIAL AUTO Routine 06/08/2024 10:44 AM JUNCTION MAKER 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 chronic kidney disease [...] RENAL FUNCTION PANEL Routine 06/08/2024 10:44 AM JUNCTION MAKER 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 chronic kidney disease [...] D 25 HYDROXY Routine 06/08/2024 10:44 AM JUNCTION MAKER 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 chronic kidney disease [...] WITH AUTO DIFFERENTIAL Routine 06/08/2024 10:44 AM JUNCTION MAKER 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 chronic kidney disease (HCC) Hypertension, essential Secondary hyperparathyroidism of renal origin Stage 3 chronic kidney disease, unspecified whether stage 3a or 3b CKD (HCC) Primary hypertension Vitamin D deficiency Type 2 diabetes mellitus with stage 3a chronic kidney disease, with long-term current use of insulin (HCC) Fatigue, unspecified type GABRIELA (acute kidney injury) PTH Routine 06/08/2024 10:44 AM JUNCTION MAKER 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 chronic kidney disease [...] RATIO, URINE, RANDOM Routine 06/08/2024 10:44 AM JUNCTION MAKER 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 chronic kidney disease (HCC) Hypertension, essential Secondary hyperparathyroidism of renal origin Stage 3 chronic kidney disease, unspecified whether stage 3a or 3b CKD (HCC) Primary hypertension Vitamin D deficiency Type 2 diabetes mellitus with stage 3a chronic kidney disease, with long-term current use of insulin (HCC) Fatigue, unspecified type GABRIELA (acute kidney injury) EGFR STAT 04/25/2024 9:45 AM JUNCTION MAKER Prostate cancer (HCC) VITAMIN D 25 HYDROXY Routine 04/25/2024 9:45 AM JUNCTION MAKER Prostate cancer (HCC) TOTAL TESTOSTERONE Routine 04/25/2024 9:45 AM JUNCTION MAKER Prostate cancer (HCC) HEMOGLOBIN A1C Routine 04/25/2024 9:45 AM JUNCTION MAKER Prostate cancer (HCC) VITAMIN B12 Routine 04/25/2024 9:45 AM JUNCTION MAKER Prostate cancer (HCC) LACTATE DEHYDROGENASE Routine 04/25/2024 9:45 AM JUNCTION MAKER Prostate cancer (HCC) COMPREHENSIVE METABOLIC PANEL STAT 04/25/2024 9:45 AM JUNCTION MAKER Prostate cancer (HCC) PSA DIAGNOSTIC Routine 04/25/2024 9:45 AM JUNCTION MAKER Prostate cancer (HCC) DIFFERENTIAL AUTO Routine 04/25/2024 9:40 AM JUNCTION MAKER Prostate cancer (HCC) CBC WITH AUTO DIFFERENTIAL Routine 04/25/2024 9:40 AM JUNCTION MAKER Prostate cancer (HCC) DEXA TBS AXIAL SKELETON BONE DENSITY 1 OR MORE SITES Schedule Routine, Read Routine (OP Routine) 04/24/2024 11:56 AM JUNCTION MAKER Age-related osteoporosis without current pathological fracture LIPID PANEL Routine 03/08/2023 11:55 AM JUNCTION MAKER Hyperlipidemia, unspecified hyperlipidemia type ALBUMIN CREATININE [...] Large Ketones, ur, POC Negative Negative Specific [place], POC 1.015 1.003 - 1.030 Blood, ur, POC Hemolyzed, trace(A) Negative pH, ur, POC 6.0 5.0 - 8.0 Protein, ur, POC 30.(A) Negative Urobilinogen, urine, POC 0.2 0.2 - 1.0 mg/dL Nitrite, ur, POC Negative Negative Leukocytes, ur, POC Negative Negative Lot Number [id number] Urine 07/19/2024 2:16 PM CDT [facility] ESQU[facility] POINT OF CARE TEST ORDER ALAN Final Result * Urine culture Urine, clean voided (07/19/2024 12:00 PM CDT) Report Final Report: No growth Comment:Testing performed by : [facility], [address] [place]., [address] Urine, clean voided 07/19/2024 12:00 PM CDT 07/20/2024 2:19 AM CDT Narrative MERLINE Conrad 07/21/2024 7:38 AM CDT Testing performed by [facility] Microbiology Laboratory ([phone]) Cl[facility] ES[facility] LAB MICROBIOLOGY - GENER AL ORDERABLES Final Result [facility] [address] Department [place] [address] * (ABNORMAL) eGFR (07/18/2024 12:07 PM CDT) [...] LAB BLOOD ORDERABLES Final Resul t [facility] Department [place] [address] * (ABNORMAL) Differential, auto (07/18/2024 12:07 PM CDT) Neutrophil abs 17.55(H) 1.50 - 6.50 K/cumm Comment:Testing performed by : [facility] Heme Lab, [address] [place] [address] Lymphocyte abs 0.96 0.80 - 3.30 K/cumm [facility] Comment:Testing performed by : [facility], [address] [place] [phone] Monocyte abs 1.48(H) 0.20 - 0.80 K/cumm [facility] Comment:Testing performed by : [facility], [address] [place], [place] [phone] Eosinophil abs 0.06 0.00 - 0.50 K/cumm [facility] Comment:Testing performed by : [facility], [address] [place] [phone] Basophil abs 0.03 0.00 - 0.10 K/cumm [facility] Comment:Testing performed by : [facility], [address] [place] [phone] Neutrophil pct 87.4 % [facility] Comment: Interpretive Data Percent cell count reference ranges are not reported, since discordance with absolute values may lead to misinterpretation of CBC data. Current Interpretive Data was last revised on 2017. Testing performed by: [facility], [address] [place] [phone] Lymphocyte pct 4.8 % [facility] Comment: Interpretive Data Percent cell count reference ranges are not reported, since discordance with absolute values may lead to misinterpretation of CBC data. Current Interpretive Data was last revised on 2017. Testing performed by: [facility], [address] [place] [phone] Monocyte pct 7.4 % MERLINE [facility] Comment: Interpretive Data Percent cell count reference ranges are not reported, since discordance with absolute values may lead to misinterpretation of CBC data. Current Interpretive Data was last revised on 2017. Testing performed by: [facility], [address] [place] [phone] Eosinophil pct 0.3 % [facility] Comment: Interpretive Data Percent cell count reference ranges are not reported, since discordance with absolute values may lead to misinterpretation of CBC data. Current Interpretive Data was last revised on 2017. Testing performed by: [facility], [address] [place] [phone] Basophil pct 0.2 % [facility] Comment: Interpretive Data Percent cell count reference ranges are not reported, since discordance with absolute values may lead to misinterpretation of CBC data. Current Interpretive Data was last revised on 2017. Testing performed by: [facility], [address] [place] [phone] Blood 07/18/2024 12:0 7 PM CDT 07/18/2024 12:22 PM CDT us Gautam Cope MD LAB BLOOD ORDERABLES Final Resul t [facility] Department [place] [address] * (ABNORMAL) CBC with auto differential (07/18/2024 12:07 PM CDT) WBC 20.09(H) 3.80 - 9.90 K/cumm Comment:Testing performed by : [facility], [address] [place] [address] Hgb 12.1(L) 13.0 - 17.5 g/dL [facility] Comment:Testing performed by : [facility], [address] [place] [address] Hct 38.2(L) 38.9 - 50.3 % [facility] Comment:Testing performed by : [facility], [address] [place] [address] Plt 451(H) 150 - 400 K/cumm [facility] Comment:Testing performed by : [facility], [address] [place] [address] MPV 7.7 6.8 - 10.4 fL [facility] Comment:Testing performed by : [facility], [address] [place], [place] [phone] RBC 4.46 4.30 - 5.80 M/cumm [facility] Comment:Testing performed by : [facility], [address] [place] [address] MCV 85.5 81.3 - 96.4 fL [facility] Comment:Testing performed by : [facility], [address] [place] [address] MCH 27.1 27.1 - 33.3 pg [facility] Comment:Testing performed by : [facility], [address] [place] [address] MCHC 31.7(L) 32.3 - 35.7 g/dL [facility] Comment:Testing performed by : [facility], [address] [place] [address] RDW CV 14.9 11.1 - 14.9 % [facility] Comment:Testing performed by : [facility], [address] [place] [address] NRBC abs 0.00 0.00 - 0.01 K/cumm [facility] Comment:Testing performed by : [facility], [address] [place] [address] Blood 07/18/2024 12:0 7 PM CDT 07/18/2024 12:22 PM CDT us Gautam Cope MD LAB BLOOD ORDERABLES Final Resul t Performing Organization Address [facility] Co de Phone Number [facility] Department [place] [place] [address] * PSA diagnostic (07/18/2024 12:07 PM CDT) [...] Final Resul t Performing Organization Address [facility] Co de Phone Number [facility] [place] [place] [address] * Lactate dehydrogenase (LD) (07/18/2024 12:07 PM CDT) Lactate dehydrogenase (LDH) 216 100 - 250 Units/L Blood 07/18/2024 12:0 7 PM CDT 07/18/2024 12:25 PM CDT us Gautam Cope MD LAB BLOOD ORDERABLES Final Resul t Performing Organization Address City/[facility] Co de Phone Number [facility] of Laboratories [place], [place] [address] * (ABNORMAL) Hemoglobin A1c (07/18/2024 12:07 PM CDT) Pathologist [facility] Hgb A1C 8.0(H) 4.0 - 5.6 % Estimated Average Glucose 183 mg/dL [facility] Comment: The [...] LAB BLOOD ORDERABLES Final Resul t [facility] Department [place] [address] * (ABNORMAL) Comprehensive metabolic panel (07/18/2024 12:07 PM CDT) [facility] Sodium 142 135 - 145 mmol/L Potassium, pl 4.6 3.3 - 4.9 mmol/L [facility] Chloride 106 97 - 110 mmol/L [facility] CO2 24 22 - 32 mmol/L [facility] Anion gap 12 2 - 15 mmol/L [facility] BUN 52(H) 6 - 25 mg/dL [facility] Creatinine 2.66(H) 0.80 - 1.30 mg/dL [facility] Glucose 164 70 - 199 mg/dL [facility] [...] 0.5 0.1 - 1.2 mg/dL [facility] Protein, pl 6.7 6.5 - 8.5 g/dL [facility] Albumin 4.0 3.5 - 5.0 g/dL [facility] Alk phos 126 40 - 130 Units/L [facility] ALT 10 7 - 55 Units/L [facility] AST 13 10 - 50 Units/L [facility] Blood 07/18/2024 12:0 7 PM CDT 07/18/2024 12:25 PM CDT us Gautam Cope MD LAB BLOOD ORDERABLES Final Resul t [facility] Department [place] [address] * SCAN - RADIOLOGY/IMAGING (07/01/2024 9:44 AM CDT) Anatomical Region Laterality Modality Other us Provider Scanning Final Result * (ABNORMAL) eGFR (06/14/2024 3:48 PM JUNCTION MAKER) eGFR 26(L) >=60 mL/min/1. 73 m2 Comment: [...] last reviewed 2021. Blood 06/14/2024 3:48 PM JUNCTION MAKER 06/14/2024 4:07 PM JUNCTION MAKER us Lin Guerrero MD LAB BLOOD ORDERABLES Final Resul t [facility] Department [place] [address] * (ABNORMAL) Renal function panel (06/14/2024 3:48 PM JUNCTION MAKER) Pathologist [facility] Sodium 143 135 - 145 mmol/L Potassium, pl 5.0(H) 3.3 - 4.9 mmol/L [facility] Chloride 105 97 - 110 mmol/L [facility] CO2 28 22 - 32 mmol/L [facility] Anion gap 10 2 - 15 mmol/L [facility] BUN 48(H) 6 - 25 mg/dL [facility] Creatinine 2.42(H) 0.80 - 1.30 mg/dL [facility] Glucose 152 70 - 199 mg/dL [facility] Calcium 8.7 8.5 - 10.3 mg/dL [facility] Phosphorus, pl 3.1 2.3 - 4.5 mg/dL [facility] Albumin 3.9 3.5 - 5.0 g/dL [facility] Blood 06/14/2024 3:48 PM JUNCTION MAKER 06/14/2024 4:03 PM JUNCTION MAKER us Lin Guerrero MD LAB BLOOD ORDERABLES Final Resul t [facility] [place] [address] * Urinalysis reflex to microscopic (06/08/2024 10:47 AM JUNCTION MAKER) Color, ur Straw Yellow Clarity, ur Clear Clear [facility] Specific gravity, ur 1.012 1.003 - 1.030 [facility] pH, urine 6.0 [facility] Comment: Interpretive Data U rine pH is affected by diet, medications, systemic acid-base disturbances, and renal tubular function. pH may affect urinary stone formation. For example, urine pH below 6.0 may help reduce the tendency for calcium phosphate stones and pH greater than 6.0 may reduce the tendency for uric acid stone formation. Source: [facility] [employer] Current Interpretive Data was last revised on 2017 Protein, ur ql Trace Negative [facility] Glucose, ur ql Negative Negative [facility] Ketones, ur Negative Negative [facility] Bilirubin, ur Negative Negative [facility] Blood, ur Negative Negative [facility] Urobilinogen, ur <2.0 <2.0 mg/dL [facility] Nitrite, ur Negative Negative [facility] Leukocyte esterase, ur Negative Negative [facility] UA reflex comment Reflex conditions for microscopic UA not met. [facility] Urine 06/08/2024 10:4 7 AM JUNCTION MAKER 06/08/2024 11:41 AM JUNCTION MAKER us Lin Guerrero MD LAB URINE ORDERABLES Final Resul t [facility] Department [place] [address] * (ABNORMAL) eGFR (06/08/2024 10:44 AM JUNCTION MAKER) Pathologist [facility] eGFR 22(L) >=60 mL/min/1. 73 m2 Comment: [...] reviewed 2021. Blood 06/08/2024 10:4 4 AM JUNCTION MAKER 06/08/2024 11:23 AM JUNCTION MAKER us Lin Guerrero MD LAB BLOOD ORDERABLES Final Resul t [facility] Department [place] [address] * (ABNORMAL) Differential, auto (06/08/2024 10:44 AM JUNCTION MAKER) Neutrophil abs 7.8(H) 1.5 - 6.5 K/cumm Imm gran abs 0.1 0.0 - 0.1 K/cumm [facility] Lymphocyte abs 1.9 0.8 - 3.3 K/cumm [facility] Monocyte abs 1.0(H) 0.2 - 0.8 K/cumm [facility] Eosinophil abs 0.1 0.0 - 0.5 K/cumm [facility] Basophil abs 0.0 0.0 - 0.1 K/cumm [facility] Neutrophil pct 71.1 % [facility] Comment: Interpretive Data Percent cell count reference ranges are not reported, since discordance with absolute values may lead to misinterpretation of CBC data. Current Interpretive Data was last revised on 2017. Imm gran pct 0.8 % [facility] Comment: Interpretive Data Percent cell count reference ranges are not reported, since discordance with absolute values may lead to misinterpretation of CBC data. Current Interpretive Data was last revised on 2017. Lymphocyte pct 17.1 % [facility] Comment: Interpretive Data Percent cell count reference ranges are not reported, since discordance with absolute values may lead to misinterpretation of CBC data. Current Interpretive Data was last revised on 2017. Monocyte pct 9.3 % [facility] Comment: Interpretive Data Percent cell count reference ranges are not reported, since discordance with absolute values may lead to misinterpretation of CBC data. Current Interpretive Data was last revised on 2017. Eosinophil pct 1.3 % [facility] Comment: Interpretive Data Percent cell count reference ranges are not reported, since discordance with absolute values may lead to misinterpretation of CBC data. Current Interpretive Data was last revised on 2017. Basophil pct 0.4 % [facility] Comment: Interpretive Data Percent cell count reference ranges are not reported, since discordance with absolute values may lead to misinterpretation of CBC data. Current Interpretive Data was last revised on 2017. Blood 06/08/2024 10:4 4 AM JUNCTION MAKER 06/08/2024 11:23 AM JUNCTION MAKER us Lin Guerrero MD LAB BLOOD ORDERABLES Final Resul t [facility] Department [place] [address] * (ABNORMAL) CBC with auto differential (06/08/2024 10:44 AM JUNCTION MAKER) WBC 11.0(H) 3.8 - 9.9 K/cumm Hgb 12.0(L) 13.0 - 17.5 g/dL [facility] Hct 36.9(L) 38.9 - 50.3 % [facility] Plt 357 150 - 400 K/cumm [facility] MPV 9.8 9.1 - 12.3 fL [facility] RBC 4.27(L) 4.30 - 5.80 M/cumm [facility] MCV 86.4 81.3 - 96.4 fL [facility] MCH 28.1 27.1 - 33.3 pg [facility] MCHC 32.5 32.3 - 35.7 g/dL [facility] RDW CV 14.1 11.1 - 14.9 % [facility] RDW SD 44.2 35.7 - 48.1 fL [facility] NRBC abs 0.00 0.00 - 0.01 K/cumm [facility] Blood 06/08/2024 10:4 4 AM JUNCTION MAKER 06/08/2024 11:23 AM JUNCTION MAKER us Lin Guerrero MD LAB BLOOD ORDERABLES Final Resul t Performing Organization Address [facility] de Phone Number [facility] [place] [address] * (ABNORMAL) Protein / creatinine ratio, urine, random (06/08/2024 10:44 AM JUNCTION MAKER) Protein, ur, quant 21.3 mg/dL Comment: Interpretive Data No reference range established. Current interpretive data was last revised 2018. Creatinine Ur 52.2 mg/dL [facility] Comment: Interpretive Data No reference range established. Current interpretive data was last revised 2018. Protein/creatinin e ratio 408.0(H) 0.0 - 180.0 mg/g CR [facility] Urine 06/08/2024 10:4 4 AM JUNCTION MAKER 06/08/2024 11:23 AM JUNCTION MAKER us Lin Guerrero MD LAB URINE ORDERABLES Final Resul t Performing Organization Address [facility] Co de Phone Number [facility] [place] [address] * Vitamin D 25 hydroxy (06/08/2024 10:44 AM JUNCTION MAKER) Vitamin D 25-OH 42 30 - 80 ng/mL Blood 06/08/2024 10:4 4 AM JUNCTION MAKER 06/08/2024 11:23 AM JUNCTION MAKER us Lin Guerrero MD LAB BLOOD ORDERABLES Final Resul t Performing Organization Address City/[facility]/ZIP Co de Phone Number [facility] Department [place] [address] * (ABNORMAL) PTH (06/08/2024 10:44 AM JUNCTION MAKER) PTH 78(H) 15 - 65 pg/mL Blood 06/08/2024 10:4 4 AM JUNCTION MAKER 06/08/2024 11:23 AM JUNCTION MAKER us Lin Guerrero MD LAB BLOOD ORDERABLES Final Resul t Performing Organization Address [facility] de Phone Number [facility] [place] [address] * (ABNORMAL) Renal function panel (06/08/2024 10:44 AM JUNCTION MAKER) Pathologist [facility] Sodium 142 135 - 145 mmol/L Potassium, pl 4.8 3.3 - 4.9 mmol/L [facility] Chloride 107 97 - 110 mmol/L [facility] CO2 27 22 - 32 mmol/L [facility] Anion gap 8 2 - 15 mmol/L [facility] BUN 60(H) 6 - 25 mg/dL [facility] Creatinine 2.72(H) 0.80 - 1.30 mg/dL [facility] Glucose 94 70 - 199 mg/dL [facility] Calcium 9.0 8.5 - 10.3 mg/dL [facility] Phosphorus, pl 3.5 2.3 - 4.5 mg/dL [facility] Albumin 3.8 3.5 - 5.0 g/dL [facility] Blood 06/08/2024 10:4 4 AM JUNCTION MAKER 06/08/2024 11:23 AM JUNCTION MAKER us Lin Guerrero MD LAB BLOOD ORDERABLES Final Resul t Performing Organization Address [facility] Co de Phone Number [facility] [place] [employer] [place] [address] * (ABNORMAL) eGFR (04/25/2024 9:45 AM JUNCTION MAKER) eGFR 28(L) >=60 mL/min/1. 73 m2 Comment: [...] last reviewed 2021. Blood 04/25/2024 9:45 AM JUNCTION MAKER 04/25/2024 9:51 AM JUNCTION MAKER us Gautam Cope MD LAB BLOOD ORDERABLES Final Resul t Performing Organization Address City/[facility]/ZIP Co de Phone Number [facility] [place] [address] * (ABNORMAL) Vitamin D 25 hydroxy (04/25/2024 9:45 AM JUNCTION MAKER) Vitamin D 25-OH 22(L) 30 - 80 ng/mL Blood 04/25/2024 9:45 AM JUNCTION MAKER 04/25/2024 9:51 AM JUNCTION MAKER us Gautam Cope MD LAB BLOOD ORDERABLES Final Resul t Performing Organization Address [facility] de Phone Number [facility] [place] [employer] [place] [address] * (ABNORMAL) Total testosterone (04/25/2024 9:45 AM JUNCTION MAKER) Testosterone <5.0(L) 193.0 - 740.0 ng/dL Blood 04/25/2024 9:45 AM JUNCTION MAKER 04/25/2024 11:20 AM JUNCTION MAKER Result Tenisha Cope MD LAB BLOOD ORDERABLES Final Resul t Performing Organization Address [facility] Phone Number [facility] [place] [address] * PSA diagnostic (04/25/2024 9:45 AM JUNCTION MAKER) PSA-Total <0.02 <=6.20 ng/mL Comment: Interpretive Data [...] last revised 21. Blood 04/25/2024 9:45 AM JUNCTION MAKER 04/25/2024 9:51 AM JUNCTION MAKER us Gautam Cope MD LAB BLOOD ORDERABLES Final Resul t Performing Organization Address [facility] de Phone Number [facility] [place] [employer] [address] * Lactate dehydrogenase (LD) (04/25/2024 9:45 AM JUNCTION MAKER) Pathologist [facility] Lactate dehydrogenase (LDH) 157 100 - 250 Units/L Blood 04/25/2024 9:45 AM JUNCTION MAKER 04/25/2024 9:51 AM JUNCTION MAKER us Gautam Cope MD LAB BLOOD ORDERABLES Final Resul t Performing Organization Address [facility] [place] [address] * (ABNORMAL) Hemoglobin A1c (04/25/2024 9:45 AM JUNCTION MAKER) Pathologist [facility] Hgb A1C 8.1(H) 4.0 - 5.6 % Estimated Average Glucose 186 mg/dL [facility] Comment: The ADA recommends reporting an estimated Average Glucose (eAG) with all Hemoglobin A1c results using the equation derived from a study of 507 normal and diabetic adults. Minority populations were underrepresented and children were not included. (Diabetes Care 2020; 43(S1): S66-S76). The eAG is not equivalent to a fasting glucose. Blood 04/25/2024 9:45 AM JUNCTION MAKER 04/25/2024 9:51 AM JUNCTION MAKER us Gautam Cope MD LAB BLOOD ORDERABLES Final Resul t Performing Organization Address [facility] [place] [address] * Vitamin B12 (04/25/2024 9:45 AM JUNCTION MAKER) Pathologist [facility] Vitamin B12 390 230 - 1,250 pg/mL Blood 04/25/2024 9:45 AM JUNCTION MAKER 04/25/2024 11:20 AM JUNCTION MAKER us Gautam Cope MD LAB BLOOD ORDERABLES Final Resul t Performing Organization Address [facility]/ZIP Co de Phone Number [facility] Department [place] [address] * (ABNORMAL) Comprehensive metabolic panel (04/25/2024 9:45 AM JUNCTION MAKER) Sodium 142 135 - 145 mmol/L Potassium, pl 4.5 3.3 - 4.9 mmol/L [facility] Chloride 106 97 - 110 mmol/L [facility] CO2 29 22 - 32 mmol/L [facility] Anion gap 7 2 - 15 mmol/L [facility] BUN 41(H) 6 - 25 mg/dL [facility] Creatinine 2.25(H) 0.80 - 1.30 mg/dL [facility] Glucose 201(H) 70 - 199 mg/dL [facility] [...] 2022. Calcium 9.2 8.5 - 10.3 mg/dL [facility] Bilirubin, total 0.3 0.1 - 1.2 mg/dL [facility] Protein, pl 6.7 6.5 - 8.5 g/dL [facility] Albumin 3.9 3.5 - 5.0 g/dL [facility] Alk phos 128 40 - 130 Units/L [facility] ALT 10 7 - 55 Units/L [facility] AST 12 10 - 50 Units/L [facility] Blood 04/25/2024 9:45 AM JUNCTION MAKER 04/25/2024 9:51 AM JUNCTION MAKER us Gautam Cope MD LAB BLOOD ORDERABLES Final Resul t [facility] Department [place] [address] * (ABNORMAL) Differential, auto (04/25/2024 9:40 AM JUNCTION MAKER) Neutrophil abs 9.1(H) 1.5 - 6.5 K/cumm Comment:Testing performed by : [facility], [address] [place] [phone] Lymphocyte abs 1.6 0.8 - 3.3 K/cumm [facility] Comment:Testing performed by : [facility], [address] [place] [phone] Monocyte abs 0.9(H) 0.2 - 0.8 K/cumm [facility] Comment:Testing performed by : [facility], [address] [place] [address] Eosinophil abs 0.2 0.0 - 0.5 K/cumm [facility] Comment:Testing performed by : [facility], [address] [place] [phone] Basophil abs 0.1 0.0 - 0.1 K/cumm [facility] Comment:Testing performed by : [facility], [address] [place] [phone] Neutrophil pct 76.7 % [facility] Comment: Interpretive Data Percent cell count reference ranges are not reported, since discordance with absolute values may lead to misinterpretation of CBC data. Current Interpretive Data was last revised on 2017. Testing performed by: [facility], [address] [place] [phone] Lymphocyte pct 13.2 % [facility] Comment: Interpretive Data Percent cell count reference ranges are not reported, since discordance with absolute values may lead to misinterpretation of CBC data. Current Interpretive Data was last revised on 2017. Testing performed by: [facility], [address] [place], [place] [phone] Monocyte pct 7.1 % [facility] Comment: Interpretive Data Percent cell count reference ranges are not reported, since discordance with absolute values may lead to misinterpretation of CBC data. Current Interpretive Data was last revised on 2017. Testing performed by: [facility], [address] [place] [phone] Eosinophil pct 1.8 % [facility] Comment: Interpretive Data Percent cell count reference ranges are not reported, since discordance with absolute values may lead to misinterpretation of CBC data. Current Interpretive Data was last revised on 2017. Testing performed by: [facility], [address] [place] [phone] Basophil pct 1.2 % [facility] Comment: Interpretive Data Percent cell count reference ranges are not reported, since discordance with absolute values may lead to misinterpretation of CBC data. Current Interpretive Data was last revised on 2017. Testing performed by: [facility], [address] [place] [address] Blood 04/25/2024 9:40 AM JUNCTION MAKER 04/25/2024 9:45 AM JUNCTION MAKER us Guatam Cope MD LAB BLOOD ORDERABLES Final Resul t [facility] Department of Laboratories [place], [place] [id number] * (ABNORMAL) CBC with auto differential (04/25/2024 9:40 AM JUNCTION MAKER) WBC 11.9(H) 3.8 - 9.9 K/cumm Comment:Testing performed by : [facility], [address] [place] [address] Hgb 12.2(L) 13.0 - 17.5 g/dL [facility] Comment:Testing performed by : [facility], [address] [place] [address] Hct 38.8(L) 38.9 - 50.3 % [facility] Comment:Testing performed by : [facility], [address] [place] [address] Plt 369 150 - 400 K/cumm [facility] Comment:Testing performed by : [facility], [address] [place] [address] MPV 7.7 6.8 - 10.4 fL [facility] Comment:Testing performed by : [facility], [address] [place] [address] RBC 4.38 4.30 - 5.80 M/cumm [facility] Comment:Testing performed by : [facility], [address] [place] [address] MCV 88.6 81.3 - 96.4 fL [facility] Comment:Testing performed by : [facility], [address] [place] [address] MCH 27.8 27.1 - 33.3 pg [facility] Comment:Testing performed by : [facility], [address] [place] [address] MCHC 31.3(L) 32.3 - 35.7 g/dL [facility] Comment:Testing performed by : [facility], [address] [place] [address] RDW CV 14.7 11.1 - 14.9 % [facility] Comment:Testing performed by : [facility], [address] [place] [address] NRBC abs 0.00 0.00 - 0.01 K/cumm [facility] Comment:Testing performed by : [facility], [address] [place] [address] Blood 04/25/2024 9:40 AM JUNCTION MAKER 04/25/2024 9:45 AM JUNCTION MAKER us Gautam Cope MD LAB BLOOD ORDERABLES Final Resul t [facility] Department [place] [address] * Dexa TBS Axial Skeleton Bone Density 1 or more sites (04/24/2024 11:56 AM JUNCTION MAKER) Anatomical Region Laterality Modality Wrist, Body N/A Radiographic Roberta ging Narrative 04/24/2024 12:52 PM JUNCTION MAKER Patient Name: David Wei Date of : 1940 Date of scan: 04/24/2024 Bone mineral density was performed on a [employer] Discovery Densitometer. Based on machine cross-calibration and [...] by the International Society of Clinical Densitometry. [id number] Daquan George MD IMG DXA PROCEDURES Final Result * (ABNORMAL) Lipid panel (03/08/2023 11:55 AM JUNCTION MAKER) [facility] Cholesterol 193 30 - 199 mg/dL [facility] Comment: Interpretive Data Ages < or = [...] on 2017. Triglycerides 250(H) <=149 mg/dL [facility] Comment: [...] on 2017. HDL 36(L) >=40 mg/dL [facility] Comment: [...] on 2017. LDL, calculated 107 <=129 mg/dL [facility] Comment: Interpretive [...] revised on 2017. Non-HDL Cholesterol 157 mg/dL [facility] Comment: Interpretive [...] last revised on 2017. Chol/HDL ratio 5 [facility] Blood 03/08/2023 11:5 5 AM JUNCTION MAKER 03/08/2023 3:48 PM JUNCTION MAKER Kraig Ching MD LAB BLOOD ORDERABLES Final Re sult Performing Organization Address [facility] de Phone Number [facility] Department [place] [address] * (ABNORMAL) Albumin Creatinine Ratio, Urine (01/01/2023 10:40 AM CDT) Albumin Ur 227.3 mg/L [facility] Comment: Interpretive Data No reference range established. Current interpretive data was last revised 2018. Creatinine Ur 66.5 mg/dL [facility] Comment: Interpretive Data No reference range established. Current interpretive data was last revised 2018. Albumin Creatinine Ratio, Ur 342(H) 1 - 29 mg/g [facility] Urine 01/01/2023 10:4 0 AM CDT 01/01/2023 10:45 AM CDT Kraig Ching MD LAB URINE ORDERABLES Final Re sult Performing Organization Address [facility] Co de Phone Number [facility] Department [place] [address] * DIABETES EYE EXAM (06/29/2018) Pathologist Replaced by [facility] Diabetic Eye Exam Normal Result [facility] Coleen Salas MD HEALTH MAINTENANCE Final Result from Last 3 Months or Most Recently Relevant to Health Maintenance Insurance T MEDICARE T MEDICARE AET MEDICARE AETNA MEDICARE Advance Directives For more information, please contact: [phone] * Full Code (Latest Code Status on File) Date Activated Date Inactivated Comments 12/16/2017 2:44 PM 12/16/2017 7:18 PM Care Teams Sap Business Analyst Relationship Specialty Start Date End Date Kraig Ching MD [address] [facility] [address] [place] [address] PCP - General 07/10/16 Gautam Cope MD [phone] [place] [address] Medical Oncologist/Retail Salesworker Medical Oncology 08/18/18 Tramaine Roe MD [phone] [place] [address] Referring Physician Urology 08/18/18 Sukhwinder Uribe MD [address] [place] [address] Consulting Physician Urology 08/18/18 Shay Guillermo MD [address] [facility] [address] [place] [address] Referring Physician Urology 08/18/18 Marsha Landis, RN Registered Nurse 11/17/18
--- OUTSIDE RECORDS SUMMARY | 2024-07-21 11:58 | XMS_ITS | Referral Summary ---
Author Organization [facility] Address [address] [place] [address] Care Team Providers Care Executive Administrative Assistant Name Role Phone Kraig Ching MD Primary Care Provider [phone] Gautam Cope MD Unavailable Tramaine Roe MD Unavailable [phone] Sukhwinder Uribe MD Unavailable [phone] Shay Guillermo MD Unavailable [phone] Marsha Landis RN Unavailable Unavailab le Encounters Date Type Department Care Team Description 07/21/2024 Results Follow-Up [facility] at [address] [phone] Fadi Corrales NP 07/19/2024 7:45 PM CDT - 07/19/2024 11:59 PM CDT Hospital Encounter [facility] [address] [place] [address] Urinary frequency Discharge Disposition: Discharge to home or self care 07/19/2024 2:00 PM CDT Office Visit [facility] Medical [facility] at [address] [address] Clau Childers PA Urinary frequency (Primary Dx); Leukocytosis, unspecified type 07/18/2024 Patient Self-Triage [facility] [address] [place] [address] Mychart, Generic Provider 07/18/2024 1:00 PM CDT Office Visit [facility] Oncology [address] [facility] Floor 5 [place] [address] Gautam Cope MD Prostate cancer (HCC) (Primary Dx) 07/18/2024 12:00 PM CDT Lab [facility] - Lab Collection [address] [facility] Floor 5 [place] [address] Prostate cancer (HCC) 07/18/2024 1:45 PM CDT Infusion [facility] Infusion [address] [facility] Floor 6 [place] [address] Prostate cancer (HCC) (Primary Dx) 07/01/[address] [facility] Health Information Management [address] [place] [id number] Scanning, Provider 06/14/2024 6:15 PM SHEET WRITER Lab [facility] ([facility]) [address] [place] [phone] GABRIELA (acute kidney injury) 06/14/2024 3:00 PM SHEET WRITER Office Visit [facility] Nephrology [address] [place] [address] 5th [place] [address] [place] [address] Lin Guerrero MD Chronic kidney disease, stage 3b (HCC) (Primary Dx); GABRIELA (acute kidney injury); Hypertension, essential; Secondary hyperparathyroidism of renal origin 06/08/2024 12:00 PM SHEET WRITER [facility] [address] [place] [phone] 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 chronic kidney disease (HCC); Hypertension, essential; Secondary hyperparathyroidism of renal origin; Stage 3 chronic kidney disease, unspecified whether stage 3a or 3b CKD (HCC); Primary hypertension; Vitamin D deficiency; Type 2 diabetes mellitus with stage 3a chronic kidney disease, with long-term current use of insulin (HCC); Fatigue, unspecified type; GABRIELA (acute kidney injury) 06/08/2024 9:45 AM SHEET WRITER Office Visit [facility] [address] [place] [address] Kraig Ching MD Hypertension, essential (Primary Dx); Prostate cancer (HCC); Type 2 diabetes mellitus with stage 3b chronic kidney disease, with long-term current use of insulin (HCC); Stage 3b chronic kidney disease (HCC); Hyperlipidemia, unspecified hyperlipidemia type 05/24/2024 Orders Only [facility] Nephrology [address] [place] [address] [place] [address] Lin Guerrero MD 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 [...] type; GABRIELA (acute kidney injury) 05/02/[address] [address] Kraig Ching MD Medical Question/Miscellaneous 04/28/[address] [place] [address] Stef Roman NP 04/28/2024 Orders Only [address] [place] [address] Stef Roman NP 04/25/2024 11:45 AM SHEET WRITER Infusion [facility] [address] [facility] Floor 5 [place] [address] Prostate cancer (HCC) (Primary Dx) 04/25/2024 9:45 AM SHEET WRITER Lab [facility] Lab Collection [address] [facility] Floor 5 [place] [address] Prostate cancer (HCC) 04/25/2024 10:45 AM SHEET WRITER Office Visit [facility] Oncology [address] [facility] Floor 5 [place] [address] Gautam Cope MD Prostate cancer (HCC) 04/24/[address] [place] [address] Daquan George MD 04/24/2024 11:50 AM SHEET WRITER Clinical Support [facility] [address] [facility] 5th [place] [address] [place] [address] Age-related osteoporosis without current pathological fracture (Primary Dx) 04/24/2024 12:20 PM SHEET WRITER Office Visit [facility] [address] [facility] 5th [place] [address] [place] [address] Daquan George MD Age-related osteoporosis without current [...] 05/30/2024 Assessment & Plan (06/08/2024 4:46 AM SHEET WRITER): Continue current regimen.Limit nephrotoxins.Reviewed creatinine. Avoid NSAIDS. [...] 03/08/2023 Assessment & Plan (06/08/2024 4:46 AM SHEET WRITER): Hypertension is controlled. Continue current regimen. Assessment & Plan (10/05/2023 12:54 PM CDT): Hypertension is controlled. Decrease carvedilol to 12.5 mg. Assessment & Plan (03/08/2023 7:11 AM SHEET WRITER): Hypertension is controlled. Continue current regimen. 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 Avoid NSAIDS. Assessment & Plan (10/05/2023 5:50 AM CDT): Continue current regimen.Limit nephrotoxins.Reviewed creatinine. Avoid NSAIDS. Assessment & Plan (03/08/2023 7:12 AM SHEET WRITER): Continue current regimen.Limit nephrotoxins.Reviewed creatinine. Avoid NSAIDS. CKD (chronic kidney disease) 03/08/2022 Assessment & Plan (06/08/2024 4:45 AM SHEET WRITER): Limit nephrotoxins. Monitor creatinine. Avoid NSAIDS.Follow with Nephrology. 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 chronic kidney disease 2021 Gastroesophageal reflux disease 04/08/2021 Assessment & Plan (03/08/2023 11:17 AM SHEET WRITER): Reviewed dietary modifications. Continue PPI. Assessment & Plan (08/18/2022 6:36 AM CDT): Reviewed dietary modifications. Continue PPI. Assessment & Plan (02/12/2022 6:03 AM CDT): Reviewed dietary modifications. Continue PPI. Assessment & Plan (04/08/2021 5:55 AM SHEET WRITER): Reviewed dietary modifications. Continue PPI. 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 Continue home PT exercises. Advised using a walker. Assessment & Plan (08/18/2022 11:47 AM CDT): Continue oxycodone. Continue home PT exercises. Advised using a walker. Assessment & Plan (02/12/2022 11:41 AM CDT): Continue oxycodone. Continue home PT exercises. A prescription for a walker. Assessment & Plan (04/08/2021 5:55 AM SHEET WRITER): Continue oxycodone. Continue home PT exercises. Continue walker. Assessment & Plan (12/26/2020 10:48 AM CDT): Continue oxycodone. Script for walker. Assessment & Plan (09/26/2020 11:29 AM CDT): Continue ROM exercises and follow with Pain Management. Refill oxycodone as needed. Prostate cancer 09/06/2018 Assessment & Plan (06/08/2024 4:46 AM SHEET WRITER): Follow with Oncology. Continue Zytiga. Assessment & [...] 01/25/2018 Assessment & Plan (03/07/2018 6:54 AM SHEET WRITER): Hypertension is controlled. Continue current regimen. CHF [...] creatinine. Assessment & Plan (04/08/2021 5:54 AM SHEET WRITER): Hypertension is controlled. Continue current regimen.Limit nephrotoxins. [...] NSAIDS. Assessment & Plan (03/07/2018 6:55 AM SHEET WRITER): Hypertension is controlled. Continue current regimen. Limit nephrotoxins. Monitor creatinine. Avoid NSAIDS. Assessment & Plan (11/25/2017 7:09 AM CDT): Limit nephrotoxins. Monitor creatinine. Avoid NSAIDS. Duodenal ulcer 11/25/2017 Assessment & Plan (11/25/2017 10:16 AM CDT): Reviewed GI note . Continue pantoprazole. Avoid NSAIDS. Refer for EGD. PAF (paroxysmal atrial fibrillation) 10/22/2017 Assessment & Plan (03/07/2018 6:54 AM SHEET WRITER): Continue rate control. Continue anticoagualtion. Anticipate starting [...] NSAIDS. Assessment & Plan (03/07/2018 6:55 AM SHEET WRITER): Limit nephrotoxins. Monitor creatinine. Avoid NSAIDS. Assessment [...] diet. Assessment & Plan (04/08/2021 10:17 AM SHEET WRITER): Reviewed HgBA1C elevated at 10.6 on 04/01/21. [...] therapy. Assessment & Plan (03/07/2018 6:57 AM SHEET WRITER): Continue pravastatin. He had myalgias on other [...] diet. Assessment & Plan (03/02/2017 6:53 AM SHEET WRITER): Hypertension is controlled. Continue current regimen. Reviewed low sodium diet. Assessment & Plan (01/15/2017 6:44 AM CDT): Reviewed proper diet. Continue statin therapy. Hyperlipidemia 01/12/2012 Assessment & Plan (06/08/2024 4:46 AM SHEET WRITER): Continue pravastatin. Order lipid panel at next [...] 05/28/2023 Assessment & Plan (03/08/2023 11:40 AM SHEET WRITER): Agree with cataract surgery. He has 1st [...] 08/30/2017 Assessment & Plan (03/02/2017 10:48 AM SHEET WRITER): Mood is improved. Monitor off medication. Impotence [...] 200. Assessment & Plan (03/07/2018 6:56 AM SHEET WRITER): Continue current regimen. Advised annual eye exam.Limit [...] 01/17/2019 Influenza, Unspecified 01/17/2019(Deferred: Daisy ent Refused) [employer]ah (J[employer]) SARS-CoV-2 Vaccination 06/14/2020, 06/14/2020 Pfizer SARS-CoV-2 [...] pur e alcohol) Occasional glass of wine. [facility] Utilities Answer Date Recorded In the [...] often do you attend chur ch or episcopal services? Never 04/04/2024 Do you belong to any clubs o r organizations such as restorationism groups, unions, fraternal or athletic groups, or [...] any time in the past 12 [facility], were you homeless or living in a nursing home (including now)? No 04/04/2024 Personal Safety Answer Date Recorded Have you ever been in or are you currently in a harmful physical or emotional relationship or is someone making you feel afraid or unsafe? Denies 06/09/2023 Sex and Gender Information Value Date Recorded Sex Assigned at Not on file Legal Sex Male 4:46 PM SHEET WRITER Gender Identity Not on file Sexual [...] cm (5' 9 ) 06/14/2024 2:58 PM SHEET WRITER Body Mass Index 29.98 06/14/2024 2:58 PM SHEET WRITER Plan of Treatment Not on file Goals Goal Patient Goal Type Associated Problems Recent Progress Patient-Stated? Author ZAK General Goal - Patient establishes care with [facility] ACO Care Management On track(2023 1:22 PM SHEET WRITER) Clarissa Arana RN Note: Problem: Lack of [facility] communication Interventions: - Provide coordination between [facility] company and patient. - Ensure [facility] has appropriate referral and orders to establish care with patient. - Follow up with patient to ensure initial visit was completed by [facility] and that a [facility] plan has been started. ZAK General Goal - Patient schedules and keeps appointments with all recommended providers ACO Care Management Improving( 1:22 PM SHEET WRITER) Clarissa Arana RN Note: Problem: Potential for [...] medication regimen. Medical Devices Implanted Type Area Checker Cashier Device Identifier Shelf Expiration Date Model / Serial / Lot [employer] Lens Iol Cna0t0.195 [facility] Autonom Cna0t0.195 - [id number] - [id number] Implanted:Qty: 1 on 06/09/2023 by Higinio Connolly MD at [facility] Lens Right: Eye [employer] [id number] 10/27/2025 CNA0T0.19 5 / [id number] / [employer] Lens Iol Cna0t0.200 [facility] Autonom Cna0t0.200 - [id number] - [id number] Implanted:Qty: 1 on 05/19/2023 by Higinio Connolly MD at [facility] Left: Eye [employer] [id number] 10/06/2025 CNA0T0.20 0 / [id number] / Procedures Procedure Name Priority Date/Time [...] AM CDT EGFR Routine 06/14/2024 3:48 PM SHEET WRITER GABRIELA (acute kidney injury) RENAL FUNCTION PANEL Routine 06/14/2024 3:48 PM SHEET WRITER GABRIELA (acute kidney injury) URINALYSIS AND REFLEX TO MICROSCOPIC Routine 06/08/2024 10:47 AM SHEET WRITER 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 chronic kidney disease (HCC) Hypertension, essential Secondary hyperparathyroidism of renal origin Stage 3 chronic kidney disease, unspecified whether stage 3a or 3b CKD (HCC) Primary hypertension Vitamin D deficiency Type 2 diabetes mellitus with stage 3a chronic kidney disease, with long-term current use of insulin (HCC) Fatigue, unspecified type GABRIELA (acute kidney injury) EGFR Routine 06/08/2024 10:44 AM SHEET WRITER 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 chronic kidney disease (HCC) Hypertension, essential Secondary hyperparathyroidism of renal origin Stage 3 chronic kidney disease, unspecified whether stage 3a or 3b CKD (HCC) Primary hypertension Vitamin D deficiency Type 2 diabetes mellitus with stage 3a chronic kidney disease, with long-term current use of insulin (HCC) Fatigue, unspecified type GABRIELA (acute kidney injury) DIFFERENTIAL AUTO Routine 06/08/2024 10:44 AM SHEET WRITER 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 chronic kidney disease [...] RENAL FUNCTION PANEL Routine 06/08/2024 10:44 AM SHEET WRITER 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 chronic kidney disease [...] D 25 HYDROXY Routine 06/08/2024 10:44 AM SHEET WRITER 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 chronic kidney disease [...] WITH AUTO DIFFERENTIAL Routine 06/08/2024 10:44 AM SHEET WRITER 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 chronic kidney disease (HCC) Hypertension, essential Secondary hyperparathyroidism of renal origin Stage 3 chronic kidney disease, unspecified whether stage 3a or 3b CKD (HCC) Primary hypertension Vitamin D deficiency Type 2 diabetes mellitus with stage 3a chronic kidney disease, with long-term current use of insulin (HCC) Fatigue, unspecified type GABRIELA (acute kidney injury) PTH Routine 06/08/2024 10:44 AM SHEET WRITER 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 chronic kidney disease [...] RATIO, URINE, RANDOM Routine 06/08/2024 10:44 AM SHEET WRITER 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 chronic kidney disease (HCC) Hypertension, essential Secondary hyperparathyroidism of renal origin Stage 3 chronic kidney disease, unspecified whether stage 3a or 3b CKD (HCC) Primary hypertension Vitamin D deficiency Type 2 diabetes mellitus with stage 3a chronic kidney disease, with long-term current use of insulin (HCC) Fatigue, unspecified type GABRIELA (acute kidney injury) EGFR STAT 04/25/2024 9:45 AM SHEET WRITER Prostate cancer (HCC) VITAMIN D 25 HYDROXY Routine 04/25/2024 9:45 AM SHEET WRITER Prostate cancer (HCC) TOTAL TESTOSTERONE Routine 04/25/2024 9:45 AM SHEET WRITER Prostate cancer (HCC) HEMOGLOBIN A1C Routine 04/25/2024 9:45 AM SHEET WRITER Prostate cancer (HCC) VITAMIN B12 Routine 04/25/2024 9:45 AM SHEET WRITER Prostate cancer (HCC) LACTATE DEHYDROGENASE Routine 04/25/2024 9:45 AM SHEET WRITER Prostate cancer (HCC) COMPREHENSIVE METABOLIC PANEL STAT 04/25/2024 9:45 AM SHEET WRITER Prostate cancer (HCC) PSA DIAGNOSTIC Routine 04/25/2024 9:45 AM SHEET WRITER Prostate cancer (HCC) DIFFERENTIAL AUTO Routine 04/25/2024 9:40 AM SHEET WRITER Prostate cancer (HCC) CBC WITH AUTO DIFFERENTIAL Routine 04/25/2024 9:40 AM SHEET WRITER Prostate cancer (HCC) DEXA TBS AXIAL SKELETON BONE DENSITY 1 OR MORE SITES Schedule Routine, Read Routine (OP Routine) 04/24/2024 11:56 AM SHEET WRITER Age-related osteoporosis without current pathological fracture LIPID PANEL Routine 03/08/2023 11:55 AM SHEET WRITER Hyperlipidemia, unspecified hyperlipidemia type ALBUMIN CREATININE RATIO, [...] Large Ketones, ur, POC Negative Negative Specific [place], POC 1.015 1.003 - 1.030 Blood, ur, POC Hemolyzed, trace(A) Negative pH, ur, POC 6.0 5.0 - 8.0 Protein, ur, POC 30.(A) Negative Urobilinogen, urine, POC 0.2 0.2 - 1.0 mg/dL Nitrite, ur, POC Negative Negative Leukocytes, ur, POC Negative Negative Lot Number [id number] Urine 07/19/2024 2:16 PM CDT Clau ESQUIVEL POINT OF CARE TEST ORDER ALAN Final Result * Urine culture Urine, clean voided (07/19/2024 12:00 PM CDT) Report Final Report: No growth Comment:Testing performed by : [facility], [address] [facility], [place]., [address] Urine, clean voided 07/19/2024 12:00 PM CDT 07/20/2024 2:19 AM CDT Narrative MERLINE - 07/21/2024 7:38 AM CDT Testing performed by [facility] Microbiology [facility] ([phone]) us Clau ESQUIVEL LAB MICROBIOLOGY - GENER AL ORDERABLES Final Result MERLINE [facility]ADOR [id number] Department [place] [address] * (ABNORMAL) eGFR (07/18/2024 12:07 PM CDT) [...] ORDERABLES Final Resul t MERLINE HARRIS One [facility] [place] Department [place] [address] * (ABNORMAL) Differential, auto (07/18/2024 12:07 PM CDT) Neutrophil abs 17.55(H) 1.50 - 6.50 K/cumm Comment:Testing performed by : [facility] Heme Lab, [address] [place] [phone] Lymphocyte abs 0.96 0.80 - 3.30 K/cumm [facility] Comment:Testing performed by : [facility][Note 3] Heme Lab, [address] [place] [address] Monocyte abs 1.48(H) 0.20 - 0.80 K/cumm [facility] Comment:Testing performed by : [facility][Note 3] Heme Lab, [address] [place] [address] Eosinophil abs 0.06 0.00 - 0.50 K/cumm [facility] Comment:Testing performed by : [facility][Note 3] Heme Lab, [address] [place] [address] Basophil abs 0.03 0.00 - 0.10 K/cumm [facility] Comment:Testing performed by : [facility], [address] [place], [place] [id number] Neutrophil pct 87.4 % [facility] Comment: Interpretive Data Percent cell count reference ranges are not reported, since discordance with absolute values may lead to misinterpretation of CBC data. Current Interpretive Data was last revised on 2017. Testing performed by: [facility][Note 3] Heme Lab, [address] [place] [address] Lymphocyte pct 4.8 % [facility] Comment: Interpretive Data Percent cell count reference ranges are not reported, since discordance with absolute values may lead to misinterpretation of CBC data. Current Interpretive Data was last revised on 2017. Testing performed by: [facility][Note 3] Heme Lab, [address] [place] [address] Monocyte pct 7.4 % [facility] Comment: Interpretive Data Percent cell count reference ranges are not reported, since discordance with absolute values may lead to misinterpretation of CBC data. Current Interpretive Data was last revised on 2017. Testing performed by: [facility][Note 3] Heme Lab, [address] [place] [phone] Eosinophil pct 0.3 % [facility] Comment: Interpretive Data Percent cell count reference ranges are not reported, since discordance with absolute values may lead to misinterpretation of CBC data. Current Interpretive Data was last revised on 2017. Testing performed by: [facility][Note 3] Heme Lab, [address] [place] [phone] Basophil pct 0.2 % [facility]LINE PER[facility] Comment: Interpretive Data Percent cell count reference ranges are not reported, since discordance with absolute values may lead to misinterpretation of CBC data. Current Interpretive Data was last revised on 2017. Testing performed by: [facility][Note 3] Heme Lab, [address] [place] [address] Blood 07/18/2024 12:0 7 PM CDT 07/18/2024 12:22 PM CDT us Gautam Cope MD LAB BLOOD ORDERABLES Final Resul t [facility]LINE PERDOMO [facility] Department [place] [address] * (ABNORMAL) CBC with auto differential (07/18/2024 12:07 PM CDT) WBC 20.09(H) 3.80 - 9.90 K/cumm Comment:Testing performed by : [facility][Note 3] Heme Lab, [address] [place] [address] Hgb 12.1(L) 13.0 - 17.5 g/dL [facility]LINE PER[facility]O Comment:Testing performed by : [facility][Note 3] Heme Lab, [address] [place] [address] Hct 38.2(L) 38.9 - 50.3 % [facility]LINE PERDOMO Comment:Testing performed by : [facility][Note 3] Heme Lab, [address] [place] [address] Plt 451(H) 150 - 400 K/cumm [facility]LINE PER[facility]O Comment:Testing performed by : [facility][Note 3] Heme Lab, [address] [place] [address] MPV 7.7 6.8 - 10.4 fL [facility]LINE PERDOMO Comment:Testing performed by : [facility][Note 3] Heme Lab, [address] [place] [address] RBC 4.46 4.30 - 5.80 M/cumm [facility]LINE PERDOMO Comment:Testing performed by : [facility][Note 3] Heme Lab, [address] [place], [place] [phone] MCV 85.5 81.3 - 96.4 fL [facility]LINE PERDOMO Comment:Testing performed by : [facility][Note 3] Heme Lab, [address] [place], [place] [phone] MCH 27.1 27.1 - 33.3 pg [facility] Comment:Testing performed by : [facility][Note 3] Heme Lab, [address] [place], [place] [phone] MCHC 31.7(L) 32.3 - 35.7 g/dL MERLINE [facility] Comment:Testing performed by : [facility][Note 3] Heme Lab, [address] [place], [place] [phone] RDW CV 14.9 11.1 - 14.9 % [facility] Comment:Testing performed by : [facility][Note 3] Heme Lab, [address] [place], [place] [phone] NRBC abs 0.00 0.00 - 0.01 K/cumm MERLINE [facility] Comment:Testing performed by : [facility][Note 3] Heme Lab, [address] [place], [place] [phone] Blood 07/18/2024 12:0 7 PM CDT 07/18/2024 12:22 PM CDT us Gautam Cope MD LAB BLOOD ORDERABLES Final Resul t [facility] Department [place] [address] * PSA diagnostic (07/18/2024 12:07 PM CDT) [...] Final Resul t Performing Organization Address [facility] de Phone Number [facility] [place] [address] * Lactate dehydrogenase (LD) (07/18/2024 12:07 PM CDT) Pathologist [facility] Lactate dehydrogenase (LDH) 216 100 - 250 Units/L Blood 07/18/2024 12:0 7 PM CDT 07/18/2024 12:25 PM CDT us Gautam Cope MD LAB BLOOD ORDERABLES Final Resul t Performing Organization Address [facility] de Phone Number [facility] [place] [address] * (ABNORMAL) Hemoglobin A1c (07/18/2024 12:07 PM CDT) Pathologist [facility] Hgb A1C 8.0(H) 4.0 - 5.6 % Estimated Average Glucose 183 mg/dL [facility] Comment: The ADA [...] Final Resul t Performing Organization Address [facility] de Phone Number [facility] [place] [address] * (ABNORMAL) Comprehensive metabolic panel (07/18/2024 12:07 PM CDT) Sodium 142 135 - 145 mmol/L Potassium, pl 4.6 3.3 - 4.9 mmol/L [facility] Chloride 106 97 - 110 mmol/L [facility] CO2 24 22 - 32 mmol/L [facility] Anion gap 12 2 - 15 mmol/L [facility] BUN 52(H) 6 - 25 mg/dL [facility] Creatinine 2.66(H) 0.80 - 1.30 mg/dL [facility] Glucose 164 70 - 199 mg/dL [facility] Comment: Interpretive Data Fasting glucose [...] 2022. Calcium 9.0 8.5 - 10.3 mg/dL [facility] Bilirubin, total 0.5 0.1 - 1.2 mg/dL [facility] Protein, pl 6.7 6.5 - 8.5 g/dL [facility] Albumin 4.0 3.5 - 5.0 g/dL [facility] Alk phos 126 40 - 130 Units/L [facility] ALT 10 7 - 55 Units/L [facility] AST 13 10 - 50 Units/L [facility] Blood 07/18/2024 12:0 7 PM CDT 07/18/2024 12:25 PM CDT us Gautam Cope MD LAB BLOOD ORDERABLES Final Resul t [facility] Department [place] [address] * SCAN - RADIOLOGY/IMAGING (07/01/2024 9:44 AM CDT) Anatomical Region Laterality Modality Other us Provider Scanning Final Result * (ABNORMAL) eGFR (06/14/2024 3:48 PM SHEET WRITER) eGFR 26(L) >=60 mL/min/1. 73 m2 Comment: [...] last reviewed 2021. Blood 06/14/2024 3:48 PM SHEET WRITER 06/14/2024 4:07 PM SHEET WRITER Lin Guerrero MD LAB BLOOD ORDERABLES Final Resul t [facility] Department [place] [address] * (ABNORMAL) Renal function panel (06/14/2024 3:48 PM SHEET WRITER) Sodium 143 135 - 145 mmol/L Potassium, pl 5.0(H) 3.3 - 4.9 mmol/L [facility] Chloride 105 97 - 110 mmol/L [facility] CO2 28 22 - 32 mmol/L [facility] Anion gap 10 2 - 15 mmol/L [facility] BUN 48(H) 6 - 25 mg/dL [facility] Creatinine 2.42(H) 0.80 - 1.30 mg/dL [facility] Glucose 152 70 - 199 mg/dL [facility] Comment: Interpretive Data Fasting glucose [...] 2022. Calcium 8.7 8.5 - 10.3 mg/dL [facility] Phosphorus, pl 3.1 2.3 - 4.5 mg/dL [facility] Albumin 3.9 3.5 - 5.0 g/dL [facility] Blood 06/14/2024 3:48 PM SHEET WRITER 06/14/2024 4:03 PM SHEET WRITER us Lin Guerrero MD LAB BLOOD ORDERABLES Final Resul t [facility] Department [place] [address] * Urinalysis reflex to microscopic (06/08/2024 10:47 AM SHEET WRITER) Color, ur Straw Yellow Clarity, ur Clear Clear [facility] Specific gravity, ur 1.012 1.003 - 1.030 [facility] pH, urine 6.0 [facility] Comment: Interpretive Data U rine pH is affected by diet, medications, systemic acid-base disturbances, and renal tubular function. pH may affect urinary stone formation. For example, urine pH below 6.0 may help reduce the tendency for calcium phosphate stones and pH greater than 6.0 may reduce the tendency for uric acid stone formation. Source: [employer] Current Interpretive Data was last revised on 2017 Protein, ur ql Trace Negative [facility] Glucose, ur ql Negative Negative [facility] Ketones, ur Negative Negative [facility] Bilirubin, ur Negative Negative [facility] Blood, ur Negative Negative [facility] Urobilinogen, ur <2.0 <2.0 mg/dL [facility] Nitrite, ur Negative Negative [facility] Leukocyte esterase, ur Negative Negative [facility] UA reflex comment Reflex conditions for microscopic UA not met. [facility] Urine 06/08/2024 10:4 7 AM SHEET WRITER 06/08/2024 11:41 AM SHEET WRITER us Lin Guerrero MD LAB URINE ORDERABLES Final Resul t Performing Organization Address City/[facility]/ZIP Co de Phone Number [facility] Department [place] [address] * (ABNORMAL) eGFR (06/08/2024 10:44 AM SHEET WRITER) eGFR 22(L) >=60 mL/min/1. 73 m2 Comment: [...] reviewed 2021. Blood 06/08/2024 10:4 4 AM SHEET WRITER 06/08/2024 11:23 AM SHEET WRITER us Lin Guerrero MD LAB BLOOD ORDERABLES Final Resul t [facility] Department [place] [address] * (ABNORMAL) Differential, auto (06/08/2024 10:44 AM SHEET WRITER) Neutrophil abs 7.8(H) 1.5 - 6.5 K/cumm Imm gran abs 0.1 0.0 - 0.1 K/cumm [facility] Lymphocyte abs 1.9 0.8 - 3.3 K/cumm [facility] Monocyte abs 1.0(H) 0.2 - 0.8 K/cumm [facility] Eosinophil abs 0.1 0.0 - 0.5 K/cumm [facility] Basophil abs 0.0 0.0 - 0.1 K/cumm [facility] Neutrophil pct 71.1 % [facility] Comment: Interpretive Data Percent cell count reference ranges are not reported, since discordance with absolute values may lead to misinterpretation of CBC data. Current Interpretive Data was last revised on 2017. Imm gran pct 0.8 % [facility] Comment: Interpretive Data Percent cell count reference ranges are not reported, since discordance with absolute values may lead to misinterpretation of CBC data. Current Interpretive Data was last revised on 2017. Lymphocyte pct 17.1 % [facility] Comment: Interpretive Data Percent cell count reference ranges are not reported, since discordance with absolute values may lead to misinterpretation of CBC data. Current Interpretive Data was last revised on 2017. Monocyte pct 9.3 % [facility] Comment: Interpretive Data Percent cell count reference ranges are not reported, since discordance with absolute values may lead to misinterpretation of CBC data. Current Interpretive Data was last revised on 2017. Eosinophil pct 1.3 % [facility] Comment: Interpretive Data Percent cell count reference ranges are not reported, since discordance with absolute values may lead to misinterpretation of CBC data. Current Interpretive Data was last revised on 2017. Basophil pct 0.4 % [facility] Comment: Interpretive Data Percent cell count reference ranges are not reported, since discordance with absolute values may lead to misinterpretation of CBC data. Current Interpretive Data was last revised on 2017. Blood 06/08/2024 10:4 4 AM SHEET WRITER 06/08/2024 11:23 AM SHEET WRITER Lin Guerrero MD LAB BLOOD ORDERABLES Final Resul t Performing Organization Address [facility] de Phone Number [facility] [place] [address] * (ABNORMAL) CBC with auto differential (06/08/2024 10:44 AM SHEET WRITER) [facility] WBC 11.0(H) 3.8 - 9.9 K/cumm Hgb 12.0(L) 13.0 - 17.5 g/dL [facility] Hct 36.9(L) 38.9 - 50.3 % [facility] Plt 357 150 - 400 K/cumm [facility] MPV 9.8 9.1 - 12.3 fL [facility] RBC 4.27(L) 4.30 - 5.80 M/cumm [facility] MCV 86.4 81.3 - 96.4 fL [facility] MCH 28.1 27.1 - 33.3 pg [facility] MCHC 32.5 32.3 - 35.7 g/dL [facility] RDW CV 14.1 11.1 - 14.9 % [facility] RDW SD 44.2 35.7 - 48.1 fL [facility] NRBC abs 0.00 0.00 - 0.01 K/cumm [facility] Blood 06/08/2024 10:4 4 AM SHEET WRITER 06/08/2024 11:23 AM SHEET WRITER Lin Guerrero MD LAB BLOOD ORDERABLES Final Resul t Performing Organization Address [facility] Co de Phone Number [facility] [place] [address] * (ABNORMAL) Protein / creatinine ratio, urine, random (06/08/2024 10:44 AM SHEET WRITER) [facility] Protein, ur, quant 21.3 mg/dL Comment: Interpretive Data No reference range established. Current interpretive data was last revised 2018. Creatinine Ur 52.2 mg/dL [facility] Comment: Interpretive Data No reference range established. Current interpretive data was last revised 2018. Protein/creatinin e ratio 408.0(H) 0.0 - 180.0 mg/g CR [facility] Urine 06/08/2024 10:4 4 AM SHEET WRITER 06/08/2024 11:23 AM SHEET WRITER us Lin Guerrero MD LAB URINE ORDERABLES Final Resul t Performing Organization Address [facility] de Phone Number [facility] [place] [address] * Vitamin D 25 hydroxy (06/08/2024 10:44 AM SHEET WRITER) [facility] Vitamin D 25-OH 42 30 - 80 ng/mL Blood 06/08/2024 10:4 4 AM SHEET WRITER 06/08/2024 11:23 AM SHEET WRITER us Lin Guerrero MD LAB BLOOD ORDERABLES Final Resul t Performing Organization Address [facility] de Phone Number [facility] Department [place] [address] * (ABNORMAL) PTH (06/08/2024 10:44 AM SHEET WRITER) [facility] PTH 78(H) 15 - 65 pg/mL Blood 06/08/2024 10:4 4 AM SHEET WRITER 06/08/2024 11:23 AM SHEET WRITER us Lin Guerrero MD LAB BLOOD ORDERABLES Final Resul t Performing Organization Address [facility] de Phone Number [facility] Department [place] [address] * (ABNORMAL) Renal function panel (06/08/2024 10:44 AM SHEET WRITER) Pathologist [facility] Sodium 142 135 - 145 mmol/L Potassium, pl 4.8 3.3 - 4.9 mmol/L [facility] Chloride 107 97 - 110 mmol/L [facility] CO2 27 22 - 32 mmol/L [facility] Anion gap 8 2 - 15 mmol/L [facility] BUN 60(H) 6 - 25 mg/dL [facility] Creatinine 2.72(H) 0.80 - 1.30 mg/dL [facility] Glucose 94 70 - 199 mg/dL [facility] Comment: Interpretive Data Fasting glucose [...] 2022. Calcium 9.0 8.5 - 10.3 mg/dL [facility] Phosphorus, pl 3.5 2.3 - 4.5 mg/dL [facility] Albumin 3.8 3.5 - 5.0 g/dL [facility] Blood 06/08/2024 10:4 4 AM SHEET WRITER 06/08/2024 11:23 AM SHEET WRITER us Lin Guerrero MD LAB BLOOD ORDERABLES Final Resul t [facility] Department [place] [address] * (ABNORMAL) eGFR (04/25/2024 9:45 AM SHEET WRITER) Pathologist [facility] eGFR 28(L) >=60 mL/min/1. 73 m2 Comment: [...] last reviewed 2021. Blood 04/25/2024 9:45 AM SHEET WRITER 04/25/2024 9:51 AM SHEET WRITER us Gautam Cope MD LAB BLOOD ORDERABLES Final Resul t Performing Organization Address City/[facility] de Phone Number [facility] Department [place] [address] * (ABNORMAL) Vitamin D 25 hydroxy (04/25/2024 9:45 AM SHEET WRITER) Vitamin D 25-OH 22(L) 30 - 80 ng/mL Blood 04/25/2024 9:45 AM SHEET WRITER 04/25/2024 9:51 AM SHEET WRITER us Gautam Cope MD LAB BLOOD ORDERABLES Final Resul t Performing Organization Address City/[facility] de Phone Number [facility] [place] [address] * (ABNORMAL) Total testosterone (04/25/2024 9:45 AM SHEET WRITER) Testosterone <5.0(L) 193.0 - 740.0 ng/dL Blood 04/25/2024 9:45 AM SHEET WRITER 04/25/2024 11:20 AM SHEET WRITER us Gautam Cope MD LAB BLOOD ORDERABLES Final Resul t Performing Organization Address [facility] Co de Phone Number [facility] [place] [address] * PSA diagnostic (04/25/2024 9:45 AM SHEET WRITER) PSA-Total <0.02 <=6.20 ng/mL Comment: Interpretive Data [...] last revised 21. Blood 04/25/2024 9:45 AM SHEET WRITER 04/25/2024 9:51 AM SHEET WRITER us Gautam Cope MD LAB BLOOD ORDERABLES Final Resul t Performing Organization Address [facility] Co de Phone Number [facility] [place] [address] * Lactate dehydrogenase (LD) (04/25/2024 9:45 AM SHEET WRITER) Lactate dehydrogenase (LDH) 157 100 - 250 Units/L Blood 04/25/2024 9:45 AM SHEET WRITER 04/25/2024 9:51 AM SHEET WRITER us Gautam Cope MD LAB BLOOD ORDERABLES Final Resul t Performing Organization Address [facility] Co de Phone Number [facility] [place] [address] * (ABNORMAL) Hemoglobin A1c (04/25/2024 9:45 AM SHEET WRITER) Hgb A1C 8.1(H) 4.0 - 5.6 % Estimated Average Glucose 186 mg/dL [facility] Comment: The ADA recommends reporting an estimated Average Glucose (eAG) with all Hemoglobin A1c results using the equation derived from a study of 507 normal and diabetic adults. Minority populations were underrepresented and children were not included. (Diabetes Care 2020; 43(S1): S66-S76). The eAG is not equivalent to a fasting glucose. Blood 04/25/2024 9:45 AM SHEET WRITER 04/25/2024 9:51 AM SHEET WRITER us Gautam Cope MD LAB BLOOD ORDERABLES Final Resul t Performing Organization Address City/[facility] Co de Phone Number [facility] [place] [address] * Vitamin B12 (04/25/2024 9:45 AM SHEET WRITER) Pathologist [facility] Vitamin B12 390 230 - 1,250 pg/mL Blood 04/25/2024 9:45 AM SHEET WRITER 04/25/2024 11:20 AM SHEET WRITER Gautam Cope MD LAB BLOOD ORDERABLES Final Resul t Performing Organization Address [facility] Co de Phone Number [facility] [place] [address] * (ABNORMAL) Comprehensive metabolic panel (04/25/2024 9:45 AM SHEET WRITER) Pathologist [facility] Sodium 142 135 - 145 mmol/L Potassium, pl 4.5 3.3 - 4.9 mmol/L [facility] Chloride 106 97 - 110 mmol/L [facility] CO2 29 22 - 32 mmol/L [facility] Anion gap 7 2 - 15 mmol/L [facility] BUN 41(H) 6 - 25 mg/dL [facility] Creatinine 2.25(H) 0.80 - 1.30 mg/dL [facility] Glucose 201(H) 70 - 199 mg/dL [facility] Comment: Interpretive Data Fasting glucose [...] 2022. Calcium 9.2 8.5 - 10.3 mg/dL [facility] Bilirubin, total 0.3 0.1 - 1.2 mg/dL [facility] Protein, pl 6.7 6.5 - 8.5 g/dL [facility] Albumin 3.9 3.5 - 5.0 g/dL [facility] Alk phos 128 40 - 130 Units/L [facility] ALT 10 7 - 55 Units/L [facility] AST 12 10 - 50 Units/L [facility] Blood 04/25/2024 9:45 AM SHEET WRITER 04/25/2024 9:51 AM SHEET WRITER us Gautam Cope MD LAB BLOOD ORDERABLES Final Resul t [facility] Department [place] [address] * (ABNORMAL) Differential, auto (04/25/2024 9:40 AM SHEET WRITER) Neutrophil abs 9.1(H) 1.5 - 6.5 K/cumm Comment:Testing performed by : [facility][Note 3] Heme Lab, [facility] [place] [address] Lymphocyte abs 1.6 0.8 - 3.3 K/cumm [facility] Comment:Testing performed by : [facility][Note 3] Heme Lab, [address] [place] [phone] Monocyte abs 0.9(H) 0.2 - 0.8 K/cumm [facility] Comment:Testing performed by : [facility][Note 3] Heme Lab, [facility] [place] [address] Eosinophil abs 0.2 0.0 - 0.5 K/cumm [facility] Comment:Testing performed by : [facility][Note 3] Heme Lab, [address] [place] [phone] Basophil abs 0.1 0.0 - 0.1 K/cumm [facility] Comment:Testing performed by : [facility][Note 3] Heme Lab, [address] [place] [phone] Neutrophil pct 76.7 % [facility] Comment: Interpretive Data Percent cell count reference ranges are not reported, since discordance with absolute values may lead to misinterpretation of CBC data. Current Interpretive Data was last revised on 2017. Testing performed by: [facility][Note 3] Heme Lab, [address] [place] [address] Lymphocyte pct 13.2 % [facility] Comment: Interpretive Data Percent cell count reference ranges are not reported, since discordance with absolute values may lead to misinterpretation of CBC data. Current Interpretive Data was last revised on 2017. Testing performed by: [facility][Note 3] Heme Lab, [address] [place], [place] [id number] Monocyte pct 7.1 % [facility] Comment: Interpretive Data Percent cell count reference ranges are not reported, since discordance with absolute values may lead to misinterpretation of CBC data. Current Interpretive Data was last revised on 2017. Testing performed by: [facility][Note 3] Heme Lab, [address] [place] [phone] Eosinophil pct 1.8 % [facility] Comment: Interpretive Data Percent cell count reference ranges are not reported, since discordance with absolute values may lead to misinterpretation of CBC data. Current Interpretive Data was last revised on 2017. Testing performed by: [facility][Note 3] Heme Lab, [address] [place] [phone] Basophil pct 1.2 % [facility] Comment: Interpretive Data Percent cell count reference ranges are not reported, since discordance with absolute values may lead to misinterpretation of CBC data. Current Interpretive Data was last revised on 2017. Testing performed by: [facility][Note 3] Heme Lab, [address] [place] [phone] Blood 04/25/2024 9:40 AM SHEET WRITER 04/25/2024 9:45 AM SHEET WRITER us Gautam Cope MD LAB BLOOD ORDERABLES Final Resul t [facility] Department [place] [address] * (ABNORMAL) CBC with auto differential (04/25/2024 9:40 AM SHEET WRITER) WBC 11.9(H) 3.8 - 9.9 K/cumm Comment:Testing performed by : [facility][Note 3] Heme Lab, [address] [place] [address] Hgb 12.2(L) 13.0 - 17.5 g/dL [facility] Comment:Testing performed by : [facility][Note 3] Heme Lab, [address] [place] [address] Hct 38.8(L) 38.9 - 50.3 % [facility] Comment:Testing performed by : [facility][Note 3] Heme Lab, [address] [place] [address] Plt 369 150 - 400 K/cumm [facility] Comment:Testing performed by : [facility][Note 3] Heme Lab, [address] [place] [address] MPV 7.7 6.8 - 10.4 fL [facility] Comment:Testing performed by : [facility][Note 3] Heme Lab, [address] [place] [address] RBC 4.38 4.30 - 5.80 M/cumm [facility] Comment:Testing performed by : [facility][Note 3] Heme Lab, [address] [place] [address] MCV 88.6 81.3 - 96.4 fL [facility] Comment:Testing performed by : [facility][Note 3] Heme Lab, [address] [place] [address] MCH 27.8 27.1 - 33.3 pg [facility] Comment:Testing performed by : [facility][Note 3] Heme Lab, [address] [place] [phone] MCHC 31.3(L) 32.3 - 35.7 g/dL [facility] Comment:Testing performed by : [facility][Note 3] Heme Lab, [address] [place] [phone] RDW CV 14.7 11.1 - 14.9 % [facility] Comment:Testing performed by : [facility][Note 3] Heme Lab, [address] [place] [phone] NRBC abs 0.00 0.00 - 0.01 K/cumm [facility] Comment:Testing performed by : [facility][Note 3] Heme Lab, [address] [place] [phone] Blood 04/25/2024 9:40 AM SHEET WRITER 04/25/2024 9:45 AM SHEET WRITER us Gautam Cope MD LAB BLOOD ORDERABLES Final Resul t [facility] Department [place] [address] * Dexa TBS Axial Skeleton Bone Density 1 or more sites (04/24/2024 11:56 AM SHEET WRITER) Anatomical Region Laterality Modality Wrist, Body N/A Radiographic Roberta ging Narrative 04/24/2024 12:52 PM SHEET WRITER Patient Name: David Wei Date of : [...] by the International Society of Clinical Densitometry. [id number] Daquan George MD IMG DXA PROCEDURES Final Result * (ABNORMAL) Lipid panel (03/08/2023 11:55 AM SHEET WRITER) Cholesterol 193 30 - 199 mg/dL [facility] revised on 2017. Triglycerides 250(H) <=149 mg/dL [facility] Comment: Interpretive Data [...] on 2017. HDL 36(L) >=40 mg/dL [facility] [...] on 2017. LDL, calculated 107 <=129 mg/dL [facility] Comment: Interpretive Data [...] revised on 2017. Non-HDL Cholesterol 157 mg/dL [facility] Comment: Interpretive Data [...] last revised on 2017. Chol/HDL ratio 5 [facility] Blood 03/08/2023 11:5 5 AM SHEET WRITER 03/08/2023 3:48 PM SHEET WRITER us Kraig Ching MD LAB BLOOD ORDERABLES Final Re sult [facility] [place] [address] * (ABNORMAL) Albumin Creatinine Ratio, Urine (01/01/2023 10:40 AM CDT) Albumin Ur 227.3 mg/L [facility] Comment: Interpretive Data No reference range established. Current interpretive data was last revised 2018. Creatinine Ur 66.5 mg/dL [facility] Comment: Interpretive Data No reference range established. Current interpretive data was last revised 2018. Albumin Creatinine Ratio, Ur 342(H) 1 - 29 mg/g [facility] Urine 01/01/2023 10:4 0 AM CDT 01/01/2023 10:45 AM CDT Kraig Ching MD LAB URINE ORDERABLES Final Re sult [facility] [place] [address] * DIABETES EYE EXAM (06/29/2018) Pathologist [facility] Diabetic Eye Exam Normal Historical Provider HEALTH MAINTENANCE Final Result from Last 3 Months or Most Recently Relevant to Health Maintenance Insurance TNA MEDICARE AETNA MEDICARE AETNA MEDICARE AETNA MEDICARE Advance Directives For more information, please contact: [phone] * Full Code (Latest Code Status on File) Date Activated Date Inactivated Comments 12/16/2017 2:44 PM 12/16/2017 7:18 PM Care Teams Executive Administrative Assistant Relationship Specialty Start Date End Date Kraig Ching MD [address] [place] [address] PCP - General 07/10/16 Gautam Cope MD [address] [place] [address] Medical Oncologist/Certified Travel Counselor Medical Oncology 08/18/18 Tramaine Roe MD [address] [place] [address] Referring Physician Urology 08/18/18 Sukhwinder Uribe MD [address] [place] [address] Consulting Physician Urology 08/18/18 Shay Guillermo MD [address] [place] [address] Referring Physician Urology 08/18/18 Marsha Landis, RN Registered Nurse 11/17/18
--- OUTSIDE RECORDS SUMMARY | 2024-07-21 11:58 | XMS_ITS ---
Author Organization [facility] Address [address] [place] [address] Care Team Providers Care Director Of Distribution Name Role Phone Kraig Ching MD Primary Care Provider [phone] Gautam Cope MD Unavailable Tramaine Roe MD Unavailable [phone] Sukhwinder Uribe MD Unavailable [phone] Shay Guillermo MD Unavailable Marsha Landis RN Unavailable Unavailab Active Problems Problem Noted Date Diagnosed Date Statin myopathy 06/08/2024 Essential hypertension 05/30/2024 Type 2 diabetes mellitus wit h stage 3b chronic kidney disease, with long-term current use of insulin 05/30/2024 Assessment & Plan (06/08/2024 4:46 AM CRM CAMPAIGN MANAGER): Continue current regimen.Limit nephrotoxins.Reviewed creatinine. Avoid NSAIDS. [...] 03/08/2023 Assessment & Plan (06/08/2024 4:46 AM CRM CAMPAIGN MANAGER): Hypertension is controlled. Continue current regimen. Assessment & Plan (10/05/2023 12:54 PM CDT): Hypertension is controlled. Decrease carvedilol to 12.5 mg. Assessment & Plan (03/08/2023 7:11 AM CRM CAMPAIGN MANAGER): Hypertension is controlled. Continue current regimen. 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 Avoid NSAIDS. Assessment & Plan (10/05/2023 5:50 AM CDT): Continue current regimen.Limit nephrotoxins.Reviewed creatinine. Avoid NSAIDS. Assessment & Plan (03/08/2023 7:12 AM CRM CAMPAIGN MANAGER): Continue current regimen.Limit nephrotoxins.Reviewed creatinine. Avoid NSAIDS. CKD (chronic kidney disease) 03/08/2022 Assessment & Plan (06/08/2024 4:45 AM CRM CAMPAIGN MANAGER): Limit nephrotoxins. Monitor creatinine. Avoid NSAIDS.Follow with Nephrology. 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 chronic kidney disease 2021 Gastroesophageal reflux disease 04/08/2021 Assessment & Plan (03/08/2023 11:17 AM CRM CAMPAIGN MANAGER): Reviewed dietary modifications. Continue PPI. Assessment & Plan (08/18/2022 6:36 AM CDT): Reviewed dietary modifications. Continue PPI. Assessment & Plan (02/12/2022 6:03 AM CDT): Reviewed dietary modifications. Continue PPI. Assessment & Plan (04/08/2021 5:55 AM CRM CAMPAIGN MANAGER): Reviewed dietary modifications. Continue PPI. 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 Continue home PT exercises. Advised using a walker. Assessment & Plan (08/18/2022 11:47 AM CDT): Continue oxycodone. Continue home PT exercises. Advised using a walker. Assessment & Plan (02/12/2022 11:41 AM CDT): Continue oxycodone. Continue home PT exercises. A prescription for a walker. Assessment & Plan (04/08/2021 5:55 AM CRM CAMPAIGN MANAGER): Continue oxycodone. Continue home PT exercises. Continue walker. Assessment & Plan (12/26/2020 10:48 AM CDT): Continue oxycodone. Script for walker. Assessment & Plan (09/26/2020 11:29 AM CDT): Continue ROM exercises and follow with Pain Management. Refill oxycodone as needed. Prostate cancer 09/06/2018 Assessment & Plan (06/08/2024 4:46 AM CRM CAMPAIGN MANAGER): Follow with Oncology. Continue Zytiga. Assessment & [...] 01/25/2018 Assessment & Plan (03/07/2018 6:54 AM CRM CAMPAIGN MANAGER): Hypertension is controlled. Continue current regimen. CHF [...] creatinine. Assessment & Plan (04/08/2021 5:54 AM CRM CAMPAIGN MANAGER): Hypertension is controlled. Continue current regimen.Limit nephrotoxins. [...] NSAIDS. Assessment & Plan (03/07/2018 6:55 AM CRM CAMPAIGN MANAGER): Hypertension is controlled. Continue current regimen. Limit nephrotoxins. Monitor creatinine. Avoid NSAIDS. Assessment & Plan (11/25/2017 7:09 AM CDT): Limit nephrotoxins. Monitor creatinine. Avoid NSAIDS. Duodenal ulcer 11/25/2017 Assessment & Plan (11/25/2017 10:16 AM CDT): Reviewed GI note . Continue pantoprazole. Avoid NSAIDS. Refer for EGD. PAF (paroxysmal atrial fibrillation) 10/22/2017 Assessment & Plan (03/07/2018 6:54 AM CRM CAMPAIGN MANAGER): Continue rate control. Continue anticoagualtion. Anticipate starting [...] NSAIDS. Assessment & Plan (03/07/2018 6:55 AM CRM CAMPAIGN MANAGER): Limit nephrotoxins. Monitor creatinine. Avoid NSAIDS. Assessment [...] diet. Assessment & Plan (04/08/2021 10:17 AM CRM CAMPAIGN MANAGER): Reviewed HgBA1C elevated at 10.6 on 04/01/21. [...] therapy. Assessment & Plan (03/07/2018 6:57 AM CRM CAMPAIGN MANAGER): Continue pravastatin. He had myalgias on other [...] diet. Assessment & Plan (03/02/2017 6:53 AM CRM CAMPAIGN MANAGER): Hypertension is controlled. Continue current regimen. Reviewed low sodium diet. Assessment & Plan (01/15/2017 6:44 AM CDT): Reviewed proper diet. Continue statin therapy. Hyperlipidemia 01/12/2012 Assessment & Plan (06/08/2024 4:46 AM CRM CAMPAIGN MANAGER): Continue pravastatin. Order lipid panel at next [...] 05/28/2023 Assessment & Plan (03/08/2023 11:40 AM CRM CAMPAIGN MANAGER): Agree with cataract surgery. He has 1st [...] 08/30/2017 Assessment & Plan (03/02/2017 10:48 AM CRM CAMPAIGN MANAGER): Mood is improved. Monitor off medication. Impotence [...] 200. Assessment & Plan (03/07/2018 6:56 AM CRM CAMPAIGN MANAGER): Continue current regimen. Advised annual eye exam.Limit nephrotoxins. Monitor creatinine. Avoid NSAIDS. Assessment & Plan (11/25/2017 10:16 AM CDT): Continue current regimen and add Januvia.Advised annual eye exam. Limit nephrotoxins. Monitor creatinine. Avoid NSAIDS. Assessment & Plan (01/15/2017 6:44 AM CDT): Continue current regimen. Advised annual eye exam. Reviewed proper diet. Continue statin therapy.
--- OUTSIDE RECORDS SUMMARY | 2024-07-21 11:58 | XMS_ITS | Encounter Summary ---
Author Organization [facility] Address [address] [place] [address] Phone Care Team Providers Care Human Resources Consultant Name Role Phone Kraig Ching MD Primary Care Provider [phone] Gautam Cope MD Unavailable Tramaine Roe MD Unavailable [phone] Sukhwinder Uribe MD Unavailable [phone] Shay Guillermo MD Unavailable [phone] Marsha Landis RN Unavailable Unavailab Clarissa Harry RN Unavailable [phone] Encounter Details Date Type Department Care [...] on file Legal Sex Male 4:46 PM METHODS STUDY ANALYST Gender Identity Not on file Sexual Orientation Not on file documented as of this encounter Functional Status documented as of this encounter Plan of Treatment Scheduled Orders Name Type Priority Associated Diagnoses Orde r Schedule CARDIOLOGY DOCUMENT SCAN Cardiac Services Ordered: 03/21/2023 documented as of this encounter Visit Diagnoses Not on filedocumented in this encounter Care Teams Human Resources Consultant Relationship Specialty Start Date End Date Kraig Ching MD [address] [facility] [address] [place] [address] PCP - General 07/10/16 Gautam Cope MD [address] [facility] [address] [place] [address] Medical Oncologist/Director Supplier Quality Medical Oncology 08/18/18 Tramaine Roe MD [address] [facility] [address] [place] [address] Referring Physician Urology 08/18/18 Sukhwinder Uribe MD [address] [facility] [address] [place] [address] Consulting Physician Urology 08/18/18 Shay Guillermo MD [address] [facility] [address] [place] [address] Referring Physician Urology 08/18/18 Marsha Landis RN Registered Nurse 11/17/18 Clarissa Luna RN [address] [place] [address] [address] [place] [address] Medical Director Occupational Health 04/04/24 04/26/24 documented as of this encounter
--- OUTSIDE RECORDS SUMMARY | 2024-07-21 11:58 | XMS_ITS | Encounter Summary ---
Author Organization [facility] Address [address] [place] [address] Phone Care Team Providers Care Composer Teaching Artist Name Role Phone Kraig Ching MD Primary Care Provider [phone] Gautam Cope MD Unavailable Tramaine Roe MD Unavailable [phone] Sukhwinder Uribe MD Unavailable [phone] Shay Guillermo MD Unavailable [phone] Marsha Landis RN Unavailable Unavailab Ilene Kaur RN Unavailable Clarissa Luna RN Unavailable [phone] Encounter Details Date Type Department Care Team (Late st Contact Info) Description 12/06/2018 Telephone [facility] Oncology [address] [facility] Advanced Medicine 7th [place] [address] Salena Bryan NP [address] [place] [address] Social History Tobacco Use Types Packs/Day Years [...] on file 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 Gender Identity Not on file Sexual Orientation Not on file documented as of this encounter Plan of Treatment Not on file documented as of this encounter Visit Diagnoses Not on filedocumented in this encounter Care Teams Composer Teaching Artist Relationship Specialty Start Date End Date Kraig Ching MD [address] [place] [address] PCP - General 07/10/16 Gautam Cope MD [address] [place] [address] Medical Oncologist/Advertising Statistical Clerk Medical Oncology 08/18/18 Tramaine Roe MD [address] [place] [address] Referring Physician Urology 08/18/18 Sukhwinder Uribe MD [address] [place] [address] Consulting Physician Urology 08/18/18 Shay Guillermo MD [address] [place] [address] Referring Physician Urology 08/18/18 Marsha Landis, RN Registered Nurse 11/17/18 Ilene Fragoso RN [address] [place] [address] Merchandise Planner 12/23/18 11/01/19 Clarissa Luna RN [address] [place] [address] Merchandise Planner 04/04/24 04/26/24 documented as of this encounter
--- OUTSIDE RECORDS SUMMARY | 2024-07-21 11:58 | XMS_ITS | Encounter Summary ---
Author Organization [facility] Address [address] [place] [address] Phone Care Team Providers Care Corn Sheller Operator Name Role Phone Kraig Ching MD Primary Care Provider [phone] Gautam Cope MD Unavailable Tramaine Roe MD Unavailable [phone] Sukhwinder Uribe MD Unavailable [phone] Shay Guillermo MD Unavailable [phone] Marsha Landis RN Unavailable Unavailab Clarissa Harry RN Unavailable [phone] Encounter Details Date Type Department Care Team (Late st Contact Info) Description 12/09/[address] 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 Gender Identity Not on file Sexual Orientation Not on file documented as of this encounter Functional Status documented as of this encounter Plan of Treatment Not on file documented as of this encounter Visit Diagnoses Not on filedocumented in this encounter Care Teams Corn Sheller Operator Relationship Specialty Start Date End Date Kraig Ching MD [address] [place] [address] PCP - General 07/10/16 Gautam Cope MD [address] [place] [address] Medical Oncologist/Water System Operator Medical Oncology 08/18/18 Tramaine Roe MD [address] [place] [address] Referring Physician Urology 08/18/18 Sukhwinder Uribe MD [address] [place] [address] Consulting Physician Urology 08/18/18 Shay Guillermo MD [address] [place] [address] Referring Physician Urology 08/18/18 Marsha Landis, RN Registered Nurse 11/17/18 Clarissa Luna RN [address] [place] [address] [address] [place] [address] Informatics Scientist 04/04/24 04/26/24 documented as of this encounter
--- NOTE | 2024-07-21 12:21 | PM.IMHP ---
H&P: HPI History of Present Illness Date/Time: 07/21/24 12:21 Chief Complaint: Hand swelling. Narrative: 83yo male with CKD, DM, HTN and prostate CA with mets to bone here for worsening right hand swelling and redness. He was seen 3 days prior to admission by his oncologist and labs wee drawn showing a WBC 20K per family. BUN 40 and Cr 2.66. He sustained bilateral hand skin tears a few days prior to admission and also states his cat bit and scratched his right upper extremity. The cat's vaccine including rabies is up to date. He had a UA checked due to the elevated WBC but this was negative fur UTI. He noted righ hand pain yesterday morning that worsened throughout the day becomeing more edematous and erythematous. He complains of chills but no fevers. He has a chronic, stable cough. He continues to smoke 1-2 cigarettes per day most days. He denies headache, vision changes, SOB, chest pain, nausea, vomiting, abdominal pain, dysuria or hematuria. He presented to the ED last night but it was too busy so he left. He returns today for evaluation and did notice that the redness has tracked up to his midarm. He does have DM and his glucose normally runs 120-130 range. He checks his glucose 4x/day. He has been out of his insulin for past 2 days and states his glucose is still 130 range. In the ED, he was mildly tachycardia and tachypneic. He was not hypoxic or febrile. BP was stable. WBC was 16K, BUN 43, Cr 2.5, glucose 161 but otherwise labs unrevealing. Lactic was 1.1. COVID, influenza and RSV PCR negative. UA not consistent with UTI. MRSA nasal swab negative. EKG showing AFib (97), low voltage and borderline ST-T wave changes lateral and high lateral leads. BCx collected. He was given appropriate amount of IV fluids for sepsis protocol. He was started on Vancomycin and admitted for further care. 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 He smokes 1-2 cigarettes per day most days. He denies marijuana use or other drug use. He drinks 1-2 alcoholic drinks per week. He has cats. Code status -full Surrogate decision maker - Years smoked: 50 Smoking status: Current every day smoker Tobacco type: cigarettes Second hand tobacco smoke exposure: Yes Additional smoking assessment comments: marijuana daily and regular cigarettes smokes intermittently Alcohol intake: current Drinks per week: 4 Substance use: current Substance use type: marijuana Other substance usage details: smoke once a day Last use: 07/30/2023 Do You Feel Safe in your Home?: Yes Lack of Transportation: No Lack of Food: Never True Current Housing: I Have Housing Concerned About Future Housing: No Difficulty Paying Gas/Electric Bills: No Difficulty Paying for Meds: No Currently Unemployed: No Education: Decline to Answer Difficulty w/ Childcare or Family Care: No Spiritual care concerns: No Meds Home Medications and Allergies Home Medications ?Medication ?Instructions ?Recorded ?Confirmed ?Type insulin aspart U-100 100 unit/mL 8 unit subcut TID 06/19/22 07/21/24 History (3 mL) subcutaneous pen (Novolog FlexPen U-100 Insulin aspart) insulin glargine 100 unit/mL (3 28 unit subcut QHS 06/19/22 07/21/24 History mL) subcutaneous pen (Lantus Solostar U-100 Insulin) oxycodone 5 mg tablet 5 mg PO PRN PRN Pain 06/19/22 07/21/24 History pantoprazole 40 mg tablet,delayed 40 mg PO DAILY 06/19/22 07/21/24 History release albuterol sulfate 90 mcg/actuation 2 puff inhalation QID PRN 06/21/22 07/21/24 Rx aerosol inhaler shortness of breath or wheezing #8.5 grams albuterol sulfate 90 mcg/actuation 1 inh inhalation QID #8.5 grams 11/02/23 07/21/24 Rx aerosol inhaler (Ventolin HFA) abiraterone 250 mg tablet 1,000 mg PO HS 03/26/24 07/21/24 History carvedilol 12.5 mg tablet 12.5 mg PO Q12H 03/26/24 07/21/24 History chlorthalidone 25 mg tablet 25 mg PO DAILY 03/26/24 07/21/24 History dorzolamide 22.3 mg-timolol 6.8 1 drp EACH EYE Q12H 03/26/24 07/21/24 History mg/mL eye drops fluoride (sodium) 1.1 % dental 1 applic dental Q24H 03/26/24 07/21/24 History cream (PreviDent 5000 Plus) insulin aspart U-100 100 unit/mL 1 sliding scale dose subcut TID 03/26/24 07/21/24 History (3 mL) subcutaneous pen (Novolog FlexPen U-100 Insulin aspart) insulin glargine 100 unit/mL (3 28 unit subcut QPM 03/26/24 07/21/24 History mL) subcutaneous pen (Lantus Solostar U-100 Insulin) lisinopril 20 mg tablet 40 mg PO DAILY 03/26/24 07/21/24 History oxycodone 5 mg tablet 5 mg PO Q6H PRN pain 03/26/24 07/21/24 History pravastatin 20 mg tablet 20 mg PO HS 03/26/24 07/21/24 History prednisone 5 mg tablet 5 mg PO Q12H 03/26/24 07/21/24 History sitagliptin phosphate 25 mg tablet 25 mg PO DAILY 03/26/24 07/21/24 History (Januvia) venlafaxine 37.5 mg 37.5 mg PO QPM 07/21/24 07/21/24 History capsule,extended release 24 hr Allergies Allergy/AdvReac Type Severity Reaction Status Date / Time No Known Drug Allergies Allergy Unknown Other Verified 07/21/24 10:47 Vital Signs Vital Signs - 24 hr 07/21/24 06:34 07/21/24 06:36 07/21/24 06:42 Temperature 98.3 F Pulse Rate 92 102 H 93 Respiratory Rate 20 21 H 23 H Blood Pressure 135/73 135/73 Pulse Oximetry 96 96 96 Oxygen Delivery Room Air 07/21/24 06:45 07/21/24 07:00 07/21/24 07:01 Temperature Pulse Rate 99 92 96 Respiratory Rate 29 H 21 H 19 Blood Pressure Pulse Oximetry 97 Oxygen Delivery 07/21/24 08:03 07/21/24 08:15 07/21/24 08:30 Temperature Pulse Rate 79 82 105 H Respiratory Rate 20 16 30 H Blood Pressure 133/66 Pulse Oximetry 95 96 Oxygen Delivery 07/21/24 08:45 07/21/24 09:03 07/21/24 09:30 Temperature Pulse Rate 89 85 86 Respiratory Rate 28 H 22 H 22 H Blood Pressure 164/57 H 159/54 H Pulse Oximetry 92 96 97 Oxygen Delivery 07/21/24 09:42 07/21/24 10:00 07/21/24 10:26 Temperature 97.8 F 97.6 F Pulse Rate 96 101 H Respiratory Rate 18 16 Blood Pressure 159/57 H 189/95 H Pulse Oximetry 95 95 Oxygen Delivery Exam Narrative: AF 97.6 189/95 101 16 95% ra Gen - well appearing male in no acute respiratory distress who is nontoxic-appearing lying semi recumbent in bed HEENT - normocephalic. Atraumatic. Pupils equal round and reactive. Extraocular motions intact. Sclera clear and anicteric. Nares patent. Oropharynx was poorly visualized. No oral lesions. Moist mucous membranes. Tongue was midline. Palate destin symmetrically. No facial asymmetry. Neck - neck was supple. No dominant adenopathy, thyromegaly or masses. Chest - scattered mild end expiratory wheeze CV - heart was irregularly irregular. 2/6 systolic murmur USB. S1-S2. Abd - abdomen was soft, obese, nontender. Positive bowel sounds. No organomegaly or masses. Ext - no pedal edema. Right hand and wrist edematous, warm and erythematous. ROM at the wrist and right computer art instructor limited due to edema. Right elbow ROM normal. Neuro - patient is alert and oappropriate. Strength is 5/5 in both upper and lower extremities. Cranial nerves 2-12 are intact. Speech is clear. Psych - normal mood and affect. Skin - Multiple dried eschars to bilateral hands. Bilateral upper arm bruising. Erythema to the right hand that is tracking up to just below the right elbow. Warm and tender to touch H&P: Results Labs Labs: Short CBC 07/21/24 Range/Units 06:49 WBC 16.2 H (4.5-10.0) K/mm3 Hgb 12.3 L (14.0-18.0) g/dL Hct 39.8 L (42.0-52.0) % Plt Count 325 (150-375) k/mm3 BMP 07/21/24 06:49 Sodium 140 Potassium 3.9 Chloride 102 Carbon Dioxide 25 BUN 43 H Creatinine 2.54 H Glucose 161 H Calcium 9.0 Liver Function 07/21/24 Range/Units 06:49 Total Bilirubin 1.2 (0.2-1.3) mg/dL AST 16 L (17-59) U/L ALT 13 (6-50) U/L Alkaline Phosphatase 120 (38-126) U/L Albumin 3.9 (3.5-5.1) g/dL Urine 07/21/24 Range/Units 08:35 Urine Color Yellow (Yellow) Urine Appearance Clear (Clear) Urine pH 6.0 (5.0-9.0) Ur Specific [place] 1.011 (1.001-1.035) Urine Protein 2+ H (Negative) mg/dL Urine Glucose (UA) Negative (Negative) mg/dL Assessment and Plan Assessment and plan (1) Sepsis: Code(s): A41.9 - Sepsis, unspecified organism Status: Acute Assessment and Plan: Patient presents with evidence of right hand and arm cellulitis been found to have sepsis with tachycardia, leukocytosis and tachypnea. Lactic acid is normal. Blood cultures are collected. He was started vancomycin. Will advance antibiotics to cover for feline mouth arnie with Unasyn. Follow white count and clinical exam (2) Cellulitis: Code(s): L03.90 - Cellulitis, unspecified Status: Acute Assessment and Plan: As above. Most likely related to the skin tear is but cannot exclude infection related to cat bite. The cats vaccines are up-to-date including rabies. May need tetanus vaccine (3) Chronic kidney disease, stage 3: Code(s): N18.30 - Chronic kidney disease, stage 3 unspecified Status: Acute Assessment and Plan: He had acute kidney injury in March with creatinine at 2.1 at time of discharge. Creatinine about 3 weeks ago was 2.55 and 2.66 a few days ago. Creatinine here is 2.54. Probably close to baseline. He does have ketones in the urine so consider dehydration as a component as well as sepsis of mild GABRIELA. Continue monitor renal function, urine output and electrolytes. Stop chlorthalidone. (4) Type 2 diabetes mellitus: Code(s): E11.9 - Type 2 diabetes mellitus without complications Status: Chronic Assessment and Plan: Patient is not consistently using insulin at home. Glucose was reasonable on admission. Will check A1c. Start sliding scale protocol and hypoglycemia protocol. Compliance with medications was stressed. (5) Chronic obstructive pulmonary disease: Code(s): J44.9 - Chronic obstructive pulmonary disease, unspecified Status: Acute Assessment and Plan: Patient with some mild wheezing noted on exam. He remains on room air. Will continue to follow clinically. Continue Prednisone which he takes chronically. Continue prn Albuterol. (6) Paroxysmal atrial fibrillation: Code(s): I48.0 - Paroxysmal atrial fibrillation Status: Acute Assessment and Plan: Patient with a history of atrial fibrillation. EKG showing AFib and noted on last EKG as well. May be more chronic in nature now. Echo July 2023 showing EF 60-65%, Grade I diastolic dysfunction and mod-severe with NATE 0.93. Resume Coreg to maintain good rate control. His Eliquis was stopped last admission for unclear reasons. Will clarify to see if this should be resumed. (7) Hypertension: Code(s): I10 - Essential (primary) hypertension Status: Chronic Assessment and Plan: Blood pressure elevated now. Resume home medications except chlorthalidone and follow Plan DVT Prophylaxis - lovenox Code status - full
[2024-07-21 12:27] LABS: Glucose Point of Care 137 mg/dl (65-105)
[2024-07-21] MEDS: AMPICILLIN SULB 3 GM/NS 100 ML 3 GM/100 ML VIAL IVPB (14:03)
[2024-07-21] MEDS: ALBUTEROL SULFATE (*SP) AEROSOL 1 PUFF INHALATION ×2 (15:39→21:01)
[2024-07-21 16:37] LABS: Glucose Point of Care 140 mg/dl (65-105)
[2024-07-21] MEDS: PRAVASTATIN SODIUM 20 MG TABLET PO (20:18)
[2024-07-21] MEDS: predniSONE 5 MG TABLET PO (20:18)
[2024-07-21 20:31] LABS: Glucose Point of Care 260 mg/dl (65-105)
[2024-07-21] MEDS: INSULIN GLARGINE (*BKC) 100 UNITS/ML 14 UNITS SUB-Q (20:34)
[2024-07-21] MEDS: ALBUTEROL SULFATE (*SP) AEROSOL 1 PUFF 2 PUFF INHALATION (23:52)
[2024-07-22] VITALS (13 sets, daily range): BP systolic 116–152; BP diastolic 55–81; PULSE 83–96; RESP 16–20; TEMP 36.1–36.3; O2SAT 94–96
[2024-07-22 00:37] LABS: NT Pro B Type Natriuretic Pept 5530 pg/mL (19.9-100); Troponin I 0.048 ng/mL (0.000-0.034)
[2024-07-22] MEDS: AMPICILLIN SULB 3 GM/NS 100 ML 3 GM/100 ML VIAL IVPB ×2 (00:55→15:00)
[2024-07-22] MEDS: FUROSEMIDE INJ 40 MG/4 ML VIAL IV PUSH (00:55)
[2024-07-22] MEDS: IPRATROPIUM 0.5 MG/ALBUTEROL SULFATE 2.5 MG AMPUL.NEB 3 ML INHALATION ×4 (01:35→20:17)
[2024-07-22 06:46] LABS: Basophils Percent Auto 0.2 % (0.2-1.2); Eosinophils Percent Auto 0.2 % (0-4.4); Hemoglobin 11.4 g/dL (14.0-18.0); Immature Granulocyte Percent A 0.8 % (0-0.5); Lymphocytes Absolute Auto 0.82 K/mm3 (0.9-3.2); Lymphocytes Percent Auto 6.4 % (18.3-44.2); Mean Corpuscular HGB Conc 31.7 g/dl (32-36); Mean Corpuscular Hemoglobin 27.7 pg (26-34); Mean Corpuscular Volume 87.6 fl (80-100); Mean Platelet Volume 9.5 fl (7.4-10.4); Monocytes Absolute Auto 1.1 K/mm3 (0.1-0.6); Monocytes Percent Auto 8.7 % (2.6-8.5); Neutrophils Absolute Auto 10.7 K/mm3 (1.3-6.7); Neutrophils Percent Auto 83.7 % (45.5-73.1); Platelet Count Result 273 k/mm3 (150-375); Red Blood Count 4.11 M/mm3 (4.6-6.20); Red Cell Distribution Width 13.9 % (11.5-14.5); White Blood Count 12.8 K/mm3 (4.5-10.0)
[2024-07-22 07:00] LABS: Albumin Level 3.4 g/dL (3.5-5.1); Anion Gap 11 mmol/L (4-12); Blood Urea Nitrogen 37 mg/dL (9-20); Calcium 8.6 mg/dL (8.4-10.2); Carbon Dioxide 24 mmol/L (22-30); Chloride 101 mmol/L (98-107); Estimated CRCL calculation 25 ml/min; Estimated Glomerular Filt Rate 30; Glucose 177 mg/dL (65-110); Magnesium 1.2 mg/dL (1.6-2.3); Phosphorus 3.9 mg/dL (2.5-4.5); Potassium 3.5 mmol/L (3.4-5.0); Sodium 136 mmol/L (137-145)
--- NOTE | 2024-07-22 07:18 | ECG_ITS ---
Test Date: 2024-07-22 07:38:13 Measurements Intervals [place] Rate: 93 P: 0 MI: 0 QRS: 38 QRSD: 97 T: 68 QT: 375 QTc: 468 Interpretive Statements ATRIAL FIBRILLATION WITH ABERRANT CONDUCTION OR VENTRICULAR PREMATURE COMPLEXES LOW QRS VOLTAGE IN LIMB LEADS BORDERLINE ST-T WAVE ABNORMALITY- HIGH LATERAL LEADS BASELINE ARTIFACT- II, III, AVF ABNORMAL ECG Compared to ECG 07/21/2024 06:48:26 NO SIGNIFICANT CHANGE Electronically Signed On 07-22-2024 09:58:28 CDT by Usman Cochran D.O.
[2024-07-22 07:46] LABS: Glucose Point of Care 171 mg/dl (65-105)
[2024-07-22 08:00] LABS: Troponin I 0.043 ng/mL (0.000-0.034)
[2024-07-22 08:12] LABS: Hemoglobin A1C 7.8 % (<5.7)
[2024-07-22] MEDS: DORZOLAMIDE/TIMOLOL OPHTH SOL 10 ML BOTTLE 1 DROP EACH EYE ×2 (08:30→20:27)
[2024-07-22] MEDS: MAGNESIUM SULF 2 GM/WATER 50ML 2 GM/50 ML BAG IVPB (08:42)
[2024-07-22] MEDS: PANTOPRAZOLE 40 MG TABLET PO (08:44)
[2024-07-22] MEDS: predniSONE 5 MG TABLET PO ×2 (08:45→20:27)
[2024-07-22] MEDS: ENOXAPARIN 30 MG/0.3 ML SYRINGE SUB-Q (08:45)
[2024-07-22] MEDS: carvediloL 12.5 MG TABLET PO ×2 (08:45→20:26)
[2024-07-22 11:44] LABS: Glucose Point of Care 229 mg/dl (65-105)
--- NOTE | 2024-07-22 12:24 | P.PNIM_ITS ---
Progress Note: A&P Assessment and Plan (1) Sepsis: Code(s): A41.9 - Sepsis, unspecified organism Status: Acute Assessment and Plan: Patient presents with evidence of right hand and arm cellulitis and found to h ave sepsis with tachycardia, leukocytosis and tachypnea. Lactic acid is normal. Blood cultures NGTD He was started vancomycin and Unasyn added to cover for feline mouth arnie WBC trending down. Follow white count and clinical exam (2) Cellulitis: Code(s): L03.90 - Cellulitis, unspecified Status: Acute Assessment and Plan: As above. Most likely related to the skin tear is but cannot exclude infection related to cat bite. The cats vaccines are up-to-date including rabies. Will proceed with tetanus vaccine. Treatment as above. (3) Chronic kidney disease, stage 3: Code(s): N18.30 - Chronic kidney disease, stage 3 unspecified Status: Acute Assessment and Plan: He had acute kidney injury in March with creatinine at 2.1 at time of discharge. Creatinine about 3 weeks ago was 2.55 and 2.66 a few days ago. Creatinine here is 2.54. He does have ketones in the urine so consider dehy dration as well as sepsis as cause of mild GABRIELA. Cr 2.1 now. Continue monitor renal function, urine output and electrolytes. Chlorthalidone stopped. (4) Type 2 diabetes mellitus: Code(s): E11.9 - Type 2 diabetes mellitus without complications Status: Chronic Assessment and Plan: A1c 7.8%. Patient is not consistently using insulin at home. Glucose was reasonable on admission. The patient's blood glucose was reviewed on 07/22 Glucose remains reasonably well controlled. Continue AccuCheks covering with sliding scale. Hypoglycemia protocol available as needed. Continue to monitor. Advance Lantus Compliance with medications was stressed. (5) Chronic obstructive pulmonary disease: Code(s): J44.9 - Chronic obstructive pulmonary disease, unspecified Status: Acute Assessment and Plan: Patient with some mild wheezing noted on exam. He remains on room air. More SOB overnight related to either COPD and/or fluid overload from fluid boluses. Lasix and Nebs given and he is back to baseline. Troponin mildly elevated at 0.048. EKG showing AFib with borderline ST-T wave changes but no change overall. Elevated Troponin felt related to sepsis, AFib with transient RVR Will continue to follow clinically. Continue Prednisone which he takes chronically. Continue prn Albuterol. (6) Paroxysmal atrial fibrillation: Code(s): I48.0 - Paroxysmal atrial fibrillation Status: Acute Assessment and Plan: Patient with a history of atrial fibrillation. EKG showing AFib and noted on last EKG as well. May be more chronic in nature now. Echo July 2023 showing EF 60-65%, Grade I diastolic dysfunction and mod-severe with NATE 0.93. Resumed Coreg to maintain good rate control. His Eliquis was stopped last admission for unclear reasons. Will resume (7) Hypertension: Code(s): I10 - Essential (primary) hypertension Status: Chronic Assessment and Plan: Patient's blood pressure was reviewed on 07/22 Blood pressure better controlled. Will continue to monitor Continue to hold chlorthalidone Plan DVT Prophylaxis - lovenox Code status - full Subjective Date/time seen: 07/22/24 12:24 Interval history: 83yo male with CKD, DM, HTN and prostate CA with mets to bone here for worsening right hand swelling and redness. Was having coughing overnight and CXR ordered and nebs started. He had improvement with neb treatments. He has been up walking in the halls. Decreased pain tot he right hand. Appetite better. He does not remember his last tetanus shot but feels it was >5 years ago. Exam Narrative: AF 97.3 133/59 84 16 95% ra Gen - NARD sitting at the side of the bed Chest - Clear with prolonged expiratory phase. CV - irregularly irregular. Abd - soft, NT/ND Ext - no pedal edema. Right hand and wrist less edematous with minimal pain now. ROM improved to wrist Neuro -alert and appropriate. Psych - normal mood and affect. Skin - Multiple dried eschars to bilateral hands. Bilateral upper arm bruising. Fading erythema to the right hand and forearm. Objective Data Vital Signs Vital Signs: Vital Signs - 24 hr 07/21/24 13:05 07/21/24 15:41 07/21/24 20:00 Temperature 97.6 F Pulse Rate 81 107 H Respiratory Rate 22 H 20 Blood Pressure 145/56 H Pulse Oximetry 97 Oxygen Delivery Room Air 07/21/24 20:06 07/21/24 21:01 07/22/24 01:35 Temperature 98.4 F Pulse Rate 83 97 89 Respiratory Rate 20 16 20 Blood Pressure 138/53 L Pulse Oximetry 95 Oxygen Delivery 07/22/24 01:41 07/22/24 06:00 07/22/24 07:38 Temperature 97.3 F L Pulse Rate 93 94 Respiratory Rate 20 18 Blood Pressure 133/59 L Pulse Oximetry 94 95 Oxygen Delivery Room Air 07/22/24 07:38 07/22/24 07:46 07/22/24 08:30 Temperature Pulse Rate 96 84 Respiratory Rate 16 16 Blood Pressure Pulse Oximetry Oxygen Delivery Room Air 07/22/24 08:45 07/22/24 08:58 Temperature Pulse Rate 84 Respiratory Rate Blood Pressure Pulse Oximetry Oxygen Delivery Room Air Intake/Output Intake/Output: Intake & Output 07/19/24 07/20/24 07/21/24 07/22/24 23:59 23:59 23:59 23:59 Intake Total 3620 400 Output Total 200 1375 Balance 3420 -975 Meds/Results Medications: Active Medications Generic Name Dose Route Start Last Admin Trade Name Freq PRN Reason Stop Dose Admin Albuterol 2 puff 07/21/24 13:16 07/21/24 23:52 Albuterol Sulfate (*Sp) Aerosol 1 Puff INHALATION 2 puff QID PRN Administration shortness of breath or wheezing Albuterol/Ipratropium 3 ml 07/22/24 02:00 07/22/24 07:37 Ipratropium 0.5 Mg/Albuterol Sulfate 2.5 Mg Ampul.Neb 3 Ml INHALATION 3 ml Q6HRT PJ Administration Carvedilol 12.5 mg 07/21/24 21:00 07/22/24 08:45 Carvedilol 12.5 Mg Tablet PO 12.5 mg Q12H PJ Administration Dextrose 12.5 gm 07/21/24 13:10 Dextrose 50% 25 Gm/50 Ml Syringe IV PUSH PRN PRN Hypoglycemia Protocol Dorzolamide/Timolol 1 drop 07/21/24 21:00 07/22/24 05:03 Dorzolamide/Timolol Ophth Sarah 10 Ml Bottle EACH EYE Not Given Q12H PJ Enoxaparin Sodium 30 mg 07/22/24 09:00 07/22/24 08:45 Enoxaparin 30 Mg/0.3 Ml Syringe SUB-Q 30 mg DAILY PJ Administration Glucagon 1 mg 07/21/24 13:10 Glucagon For Inj 1 Mg Vial IM PRN PRN Hypoglycemia Protocol Glucose 15 gm 07/21/24 13:10 Glucose Oral Gel 15 Gm Of Glucse In 37.5 Gm Tube PO PRN PRN Hypoglycemia Protocol Vancomycin HCl 1,250 mg in 250 mls @ 166.667 mls/hr 07/22/24 21:00 Vancomycin 1,250 Mg/Ns 250 Ml IVPB Q36H PJ Dextrose 1,000 mls @ 100 mls/hr 07/21/24 13:10 Dextrose 5% 1,000 Ml IVPB PRN PRN Hypoglycemia Protocol Ampicillin Sodium/Sulbactam Sodium 3 gm in 100 mls @ 200 mls/hr 07/21/24 14:00 07/22/24 00:55 Unasyn 3 Gm/Ns 100 Ml IVPB 200 mls/hr Q12H PJ Administration Insulin Aspart 3 - 6 units 07/21/24 17:00 07/22/24 08:28 Insulin Aspart (*Bkc) 100 Units/Ml SUB-Q Not Given TIDWM [facility] Protocol Insulin Glargine 14 units 07/21/24 21:00 07/21/24 20:34 Insulin Glargine (*Bkc) 100 Units/Ml SUB-Q 14 units QHS PJ Administration Miscellaneous Information 1 each 07/22/24 00:01 07/21/24 22:32 Prevident 5000 Is Nonform; Can Pt Use From Home? XX 08/21/24 00:00 Not Given CLARIFY PJ Non-Formulary Medication 1 applic 07/21/24 13:30 Fluoride (Sodium) [Prevident 5000 Plus] DENTAL 08/20/24 13:29 Q24H PJ Oxycodone HCl 5 mg 07/21/24 13:16 Oxycodone Hcl (*Crx) 5 Mg Tab Ir PO Q6H PRN PAIN RATED 7-10 Pantoprazole Sodium 40 mg 07/22/24 09:00 07/22/24 08:44 Pantoprazole 40 Mg Tablet PO 40 mg DAILY PJ Administration Pravastatin Sodium 20 mg 07/21/24 21:00 07/21/24 20:18 Pravastatin Sodium 20 Mg Tablet PO 20 mg HS PJ Administration Prednisone 5 mg 07/21/24 21:00 07/22/24 08:45 Prednisone 5 Mg Tablet PO 5 mg Q12H PJ Administration Radiology Results: ITS Impressions Hand X-Ray 07/21/24 14:35 Impression: Unremarkable right hand. Chest X-Ray 07/21/24 23:58 IMPRESSION: No acute cardiopulmonary pathology. Labs Labs: Laboratory Results - last 24 hr 07/21/24 07/21/24 07/21/24 12:24 16:09 20:27 WBC RBC Hgb Hct MCV MCH MCHC RDW Plt Count MPV Immature Gran % (Auto) Neut % (Auto) Lymph % (Auto) Hunt % (Auto) Eos % (Auto) Baso % (Auto) Lymph # (Auto) Hunt # (Auto) Eos # (Auto) Baso # (Auto) Abs Immat Gran (auto) Absolute Neuts (auto) Absolute Nucleated RBC Nucleated RBC % Sodium Potassium Chloride Carbon Dioxide Anion Gap BUN Creatinine Estim Creat Clear Calc Estimated GFR Glucose POC Capillary Glucose 137 H 140 H 260 H Hemoglobin A1c Calcium Phosphorus Magnesium Troponin I NT-Pro-B Natriuret Pep Albumin 07/21/24 07/22/24 07/22/24 23:59 06:32 06:36 WBC 12.8 H RBC 4.11 L Hgb 11.4 L Hct 36.0 L MCV 87.6 MCH 27.7 MCHC 31.7 L RDW 13.9 Plt Count 273 MPV 9.5 Immature Gran % (Auto) 0.8 H Neut % (Auto) 83.7 H Lymph % (Auto) 6.4 L Hunt % (Auto) 8.7 H Eos % (Auto) 0.2 Baso % (Auto) 0.2 Lymph # (Auto) 0.82 L Hunt # (Auto) 1.1 H Eos # (Auto) 0.0 Baso # (Auto) 0.0 Abs Immat Gran (auto) 0.10 H Absolute Neuts (auto) 10.7 H Absolute Nucleated RBC 0.000 Nucleated RBC % 0.0 Sodium 136 L Potassium 3.5 Chloride 101 Carbon Dioxide 24 Anion Gap 11 BUN 37 H Creatinine 2.12 H Estim Creat Clear Calc 25 Estimated GFR 30 L Glucose 177 H POC Capillary Glucose Hemoglobin A1c 7.8 H Calcium 8.6 Phosphorus 3.9 Magnesium 1.2 L Troponin I 0.048 H* 0.043 H* NT-Pro-B Natriuret Pep 5530 H Albumin 3.4 L 07/22/24 07/22/24 07:42 11:41 WBC RBC Hgb Hct MCV MCH MCHC RDW Plt Count MPV Immature Gran % (Auto) Neut % (Auto) Lymph % (Auto) Hunt % (Auto) Eos % (Auto) Baso % (Auto) Lymph # (Auto) Hunt # (Auto) Eos # (Auto) Baso # (Auto) Abs Immat Gran (auto) Absolute Neuts (auto) Absolute Nucleated RBC Nucleated RBC % Sodium Potassium Chloride Carbon Dioxide Anion Gap BUN Creatinine Estim Creat Clear Calc Estimated GFR Glucose POC Capillary Glucose 171 H 229 H Hemoglobin A1c Calcium Phosphorus Magnesium Troponin I NT-Pro-B Natriuret Pep Albumin
[2024-07-22] MEDS: INSULIN ASPART (*BKC) 100 UNITS/ML SUB-Q (12:36)
[2024-07-22] MEDS: TETANUS/DIPHTHERIA TOXOIDS ADSORB 0.5 ML SYRINGE (*BKC) IM (16:11)
[2024-07-22 16:56] LABS: Glucose Point of Care 187 mg/dl (65-105)
[2024-07-22 20:22] LABS: Glucose Point of Care 300 mg/dl (65-105)
[2024-07-22] MEDS: PRAVASTATIN SODIUM 20 MG TABLET PO (20:26)
[2024-07-22] MEDS: APIXABAN 2.5 MG TABLET PO (20:27)
[2024-07-22] MEDS: VANCOMYCIN 1,250 MG/NS 250 ML 1,250 MG/250 ML BAG 166.67 MG IVPB (20:28)
[2024-07-22] MEDS: INSULIN GLARGINE (*BKC) 100 UNITS/ML 18 UNITS SUB-Q (20:31)
[2024-07-23] VITALS (10 sets, daily range): BP systolic 106–133; BP diastolic 58–67; PULSE 73–104; RESP 18–20; TEMP 35.6–36.1; O2SAT 96–98
[2024-07-23] MEDS: IPRATROPIUM 0.5 MG/ALBUTEROL SULFATE 2.5 MG AMPUL.NEB 3 ML INHALATION ×3 (01:42→14:26)
[2024-07-23] MEDS: AMPICILLIN SULB 3 GM/NS 100 ML 3 GM/100 ML VIAL IVPB (01:58)
[2024-07-23 06:15] LABS: Basophils Percent Auto 0.2 % (0.2-1.2); Eosinophils Percent Auto 0.4 % (0-4.4); Hematocrit 32.5 % (42.0-52.0); Hemoglobin 10.2 g/dL (14.0-18.0); Immature Granulocyte Absolute 0.06 K/mm3 (0.00-0.031); Immature Granulocyte Percent A 0.5 % (0-0.5); Lymphocytes Absolute Auto 0.78 K/mm3 (0.9-3.2); Lymphocytes Percent Auto 6.9 % (18.3-44.2); Mean Corpuscular HGB Conc 31.4 g/dl (32-36); Mean Corpuscular Hemoglobin 27.4 pg (26-34); Mean Corpuscular Volume 87.4 fl (80-100); Mean Platelet Volume 9.8 fl (7.4-10.4); Monocytes Percent Auto 8.9 % (2.6-8.5); Neutrophils Absolute Auto 9.3 K/mm3 (1.3-6.7); Neutrophils Percent Auto 83.1 % (45.5-73.1); Platelet Count Result 264 k/mm3 (150-375); Red Blood Count 3.72 M/mm3 (4.6-6.20); Red Cell Distribution Width 13.7 % (11.5-14.5); White Blood Count 11.2 K/mm3 (4.5-10.0)
[2024-07-23 06:23] LABS: Estimated CRCL calculation 24 ml/min; Estimated Glomerular Filt Rate 29
[2024-07-23 06:26] LABS: Albumin Level 3.2 g/dL (3.5-5.1); Anion Gap 7 mmol/L (4-12); Blood Urea Nitrogen 38 mg/dL (9-20); Calcium 8.3 mg/dL (8.4-10.2); Carbon Dioxide 27 mmol/L (22-30); Chloride 99 mmol/L (98-107); Estimated CRCL calculation 24 ml/min; Estimated Glomerular Filt Rate 28; Glucose 172 mg/dL (65-110); Magnesium 1.6 mg/dL (1.6-2.3); Phosphorus 3.9 mg/dL (2.5-4.5); Potassium 3.5 mmol/L (3.4-5.0); Sodium 133 mmol/L (137-145)
[2024-07-23 08:06] LABS: Glucose Point of Care 155 mg/dl (65-105)
[2024-07-23] MEDS: APIXABAN 2.5 MG TABLET PO (09:02)
[2024-07-23] MEDS: predniSONE 5 MG TABLET PO (09:02)
[2024-07-23] MEDS: AMOXICILLIN/CLAVULANATE K 500-125 MG TAB 1 TABLET PO (09:02)
[2024-07-23] MEDS: PANTOPRAZOLE 40 MG TABLET PO (09:03)
[2024-07-23] MEDS: carvediloL 12.5 MG TABLET PO (09:06)
[2024-07-23] MEDS: DORZOLAMIDE/TIMOLOL OPHTH SOL 10 ML BOTTLE 1 DROP EACH EYE (10:27)
[2024-07-23] MEDS: DOXYCYCLINE HYCLATE 100 MG TABLET PO (10:27)
[2024-07-23 11:30] LABS: Glucose Point of Care 228 mg/dl (65-105)
[2024-07-23] MEDS: INSULIN ASPART (*BKC) 100 UNITS/ML SUB-Q (12:38)
--- NOTE | 2024-07-23 15:33 | PM.DS ---
DS: Admitting Diagnosis Discharge Date 07/23/24 Admitting Diagnosis Hand swelling DS: Discharge Diagnosis Discharge Diagnosis (1) Sepsis: Code(s): A41.9 - Sepsis, unspecified organism Status: Acute (2) Cellulitis: Code(s): L03.90 - Cellulitis, unspecified Status: Acute (3) Chronic kidney disease, stage 3: Code(s): N18.30 - Chronic kidney disease, stage 3 unspecified Status: Acute (4) Type 2 diabetes mellitus: Code(s): E11.9 - Type 2 diabetes mellitus without complications Status: Chronic (5) Chronic obstructive pulmonary disease: Code(s): J44.9 - Chronic obstructive pulmonary disease, unspecified Status: Acute (6) Paroxysmal atrial fibrillation: Code(s): I48.0 - Paroxysmal atrial fibrillation Status: Acute (7) Hypertension: Code(s): I10 - Essential (primary) hypertension Status: Chronic DS: Summary Hospital Course Reason for hospitalization: 83yo male with CKD, DM, HTN and prostate CA with mets to bone here for worsening right hand swelling and redness. Please see H&P for details. Hospital Course: Patient presented with evidence of right hand and arm cellulitis and found to have sepsis with tachycardia, leukocytosis and tachypnea. Lactic acid is normal. Blood culture NGTD (other BCx pending). Most likely related to the skin tear is but cannot exclude infection related to cat bite. Rt hand Xray showing no acute findings. Their cat's vaccines are up-to-date including rabies. He received tetanus vaccine here. He was started vancomycin; Unasyn added to cover for feline mouth arnie. WBC trended down. He had acute kidney injury in March with creatinine at 2.1 at time of discharge. Creatinine was 2.55 about 3 weeks ago and 2.66 a few days ago. Creatinine here is 2.54. He does have ketones in the urine so consider dehydration as well as sepsis as cause of mild GABRIELA. Cr better now. [place] related to sepsis. A1c 7.8%. Patient is not consistently using insulin at home. Glucose was reasonable on admission. The patient's blood glucose was reviewed monitored with AccuCheks covering with sliding scale. Hypoglycemia protocol available as needed. Patient with some mild wheezing noted on exam. He remained on room air. More SOB overnight related to either COPD and/or fluid overload from fluid boluses. Lasix and Nebs given and he is back to baseline. Troponin mildly elevated at 0.048. EKG showing AFib with borderline ST-T wave changes but no change overall. Elevated Troponin felt related to demand ischemia from sepsis, AFib with transient RVR. Patient with a history of atrial fibrillation. EKG showing AFib and noted on last EKG as well. May be more chronic in nature now. Echo July 2023 showing EF 60-65%, Grade I diastolic dysfunction and mod-severe with NATE 0.93. Resumed Coreg to maintain good rate control. Patient states he has been off Eliquis for years after having a bleeding ulcer. He was up ambulating. He feels much better. He overall did well and was able to be discharged on 07/23/24 Status at Discharge Cognitive/behavioral status at discharge: stable Time Spent with Patient Time attestation: Total time spent providing and/or coordinating discharge services: 38 minutes Time spent: Greater than 30 minutes Exam Narrative: AF 96.9 112/64 87 20 97% ra Gen - NARD Chest - a few scattered rhonchi CV - irregularly irregular. Abd - soft, NT/ND Ext - no pedal edema. Right hand and wrist much less edematous with no pain. ROM improved. Neuro -alert and appropriate. Psych - normal mood and affect. Skin - Multiple dried eschars to bilateral hands. Scant RUE erythema DS: Data Data Completed and Pending Labs on day of discharge: Labs from last 24 hours 07/23/24 07/23/24 07/23/24 11:23 08:01 05:44 WBC RBC Hgb Hct MCV MCH MCHC RDW Plt Count MPV Immature Gran % (Auto) Neut % (Auto) Lymph % (Auto) [place] % (Auto) Eos % (Auto) Baso % (Auto) Lymph # (Auto) [place] # (Auto) Eos # (Auto) Baso # (Auto) Abs Immat Gran (auto) Absolute Neuts (auto) Absolute Nucleated RBC Nucleated RBC % Sodium Potassium Chloride Carbon Dioxide Anion Gap BUN Creatinine Estim Creat Clear Calc Estimated GFR 29 L Glucose 172 H POC Capillary Glucose 228 H 155 H Calcium 8.3 L Phosphorus 3.9 Magnesium 1.6 Albumin 3.2 L 07/23/24 07/23/24 07/23/24 05:44 05:44 05:44 WBC 11.2 H RBC 3.72 L Hgb 10.2 L Hct 32.5 L MCV 87.4 MCH 27.4 MCHC 31.4 L RDW 13.7 Plt Count 264 MPV 9.8 Immature Gran % (Auto) 0.5 Neut % (Auto) 83.1 H Lymph % (Auto) 6.9 L [place] % (Auto) 8.9 H Eos % (Auto) 0.4 Baso % (Auto) 0.2 Lymph # (Auto) 0.78 L [place] # (Auto) 1.0 H Eos # (Auto) 0.0 Baso # (Auto) 0.0 Abs Immat Gran (auto) 0.06 H Absolute Neuts (auto) 9.3 H Absolute Nucleated RBC 0.000 Nucleated RBC % 0.0 Sodium 133 L Potassium 3.5 Chloride 99 Carbon Dioxide 27 Anion Gap 7 BUN 38 H Creatinine 2.21 H 2.22 H Estim Creat Clear Calc 24 24 Estimated GFR 28 L Glucose POC Capillary Glucose Calcium Phosphorus Magnesium Albumin 07/22/24 07/22/24 20:14 16:53 WBC RBC Hgb Hct MCV MCH MCHC RDW Plt Count MPV Immature Gran % (Auto) Neut % (Auto) Lymph % (Auto) [place] % (Auto) Eos % (Auto) Baso % (Auto) Lymph # (Auto) [place] # (Auto) Eos # (Auto) Baso # (Auto) Abs Immat Gran (auto) Absolute Neuts (auto) Absolute Nucleated RBC Nucleated RBC % Sodium Potassium Chloride Carbon Dioxide Anion Gap BUN Creatinine Estim Creat Clear Calc Estimated GFR Glucose POC Capillary Glucose 300 H 187 H Calcium Phosphorus Magnesium Albumin Preliminary micro results at discharge 07/21/24 06:51 Blood Culture - Preliminary Blood Discharge Plan Discharge Attending physician on discharge: Todd Choudhury Discharging Clinician: Todd Choudhury Anticipated Discharge Date/Time: 07/23/24 15:43 Patient Disposition: Home Activity: as tolerated Diet: diabetic Discharge Instructions: Please check glucose before meals and before bed. Record and bring into your doctor for review. Check blood pressure 1 to 2 times a day. Record and bring into your doctor for review. Call your doctor if your blood pressure is greater than 180/110. Please complete your antibiotic course even if you are starting to feel well. Take precautions to avoid falls. Rise slowly from a lying or sitting position. Pause before standing or walking. Contact your doctor or call 911 and come to the Emergency Room if you have fever or other worrisome symptoms. Avoid NSAIDs (ibuprofen, naproxen, Aleve). Tylenol is safe to take. Follow-up with your primary care provider in 1-2 weeks. Please call for appointment. Thank you for using [facility] for your health care needs. Patient Instructions: Antibiotic Form, Apixaban (By mouth) Patient Language: Citizen Of [place] Stand Alone Forms: General Discharge Information Follow-up/Referrals: Jeane,Kraig Fernandez MD [Primary Care Provider] - Call for Appointment Discharge Medications: New amoxicillin-pot clavulanate [Augmentin] 500-125 mg Tablet 1 tablet PO Q12H Qty: 10 0RF doxycycline hyclate 100 mg Tablet 100 mg PO Q12H Qty: 9 0RF Continued pantoprazole 40 mg tablet,delayed release (DR/EC) 40 mg PO DAILY insulin aspart U-100 [Novolog FlexPen U-100 Insulin] 100 unit/mL (3 mL) insulin pen 8 unit SUBCUT TID Protocol: Insulin Corrective Low-Dose Condition: glucose < 70 mg/dl Dose/Route: Follow Hypoglycemia Order Condition: glucose 70-200 mg/dl Dose/Route: No additional insulin Condition: glucose 201-250 mg/dl Dose/Route: 2 units sub-Q Condition: glucose 251-300 mg/dl Dose/Route: 3 units sub-Q Condition: glucose 301-350 mg/dl Dose/Route: 4 units sub-Q Condition: glucose 351-400 mg/dl Dose/Route: 5 units sub-Q Condition: glucose > 400 mg/dl Dose/Route: Call Protocol Text: *No Correction Dose at Bedtime* Rx Instructions: Pt states he takes for glucose level 150 or higher. pt takes this intermittently insulin glargine [Lantus Solostar U-100 Insulin] 100 unit/mL (3 mL) insulin pen 28 unit subcut QHS Rx Instructions: Pt states he holds medication if glucose levels under 140. albuterol sulfate 90 mcg/actuation HFA aerosol inhaler 2 puff inhalation QID PRN (Reason: shortness of breath or wheezing) Qty: 8.5 2RF albuterol sulfate [Ventolin HFA] 90 mcg/actuation HFA aerosol inhaler 1 inh inhalation QID Qty: 8.5 0RF carvedilol 12.5 mg tablet 12.5 mg PO Q12H dorzolamide-timolol 22.3-6.8 mg/mL drops 1 drp EACH EYE Q12H fluoride (sodium) [PreviDent 5000 Plus] 1.1 % cream 1 applic dental Q24H oxycodone 5 mg tablet 5 mg PO Q6H PRN (Reason: pain) prednisone 5 mg tablet 5 mg PO Q12H pravastatin 20 mg tablet 20 mg PO HS Januvia 25 mg tablet 25 mg PO DAILY insulin aspart U-100 [Novolog FlexPen U-100 Insulin] 100 unit/mL (3 mL) insulin pen 1 sliding scale dose SUBCUT TID Held abiraterone 250 mg tablet 1,000 mg PO HS Hold Instructions: HOLD - resume when okay with your doctor lisinopril 20 mg tablet 40 mg PO DAILY Hold Instructions: Hold- resume when okay with your doctor chlorthalidone 25 mg tablet 25 mg PO DAILY Hold Instructions: HOLD - resume when okay with your doctor Discontinued oxycodone 5 mg tablet 5 mg PO PRN PRN (Reason: Pain) insulin glargine [Lantus Solostar U-100 Insulin] 100 unit/mL (3 mL) insulin pen 28 unit SUBCUT QPM venlafaxine 37.5 mg capsule,extended release 24hr 37.5 mg PO QPM Date of admission: 07/21/24 09:13 Primary Care Provider: Jeane,Kraig Fernandez Admitting Provider: Brett Foley Attending physician on admission: Todd Choudhury Condition: Stable Hospitalist MIPS Heart Failure (Exclusion) Patient has history of Heart Transplant or Left Ventricular Assistive Device?: No IF YES, STOP HERE Heart Failure (Qualifier) Patient has current or prior documentation of LVEF less than or equal to 40%, or mod/servere depressed LVSF?: No IF NO, STOP HERE
--- NOTE | 2024-07-28 08:04 | PC.NURSE ---
Blood cx are negative
== END 2024-07-23 17:20 | disposition home or self-care (01) ==
LOC: ANHED 09:10 → ANH3MEDSUR 11:46
PROVIDERS: Emergency Medicine; Internal Medicine; Admitting Provider Internal Medicine; Emergency Provider Emergency Medicine; PCP Internal Medicine; Visit Provider Internal Medicine
DX: A41.9 Sepsis, unspecified organism (principal); L03.113 Cellulitis of right upper limb; W55.01XA Bitten by cat, initial encounter; Z23 Encounter for immunization; R06.02 Shortness of breath; E11.22 Type 2 diabetes mellitus with diabetic chronic kidney disease; I12.9 Hypertensive chronic kidney disease with stage 1 through stage 4 chronic kidney disease, or unspecified chronic kidney disease; N18.30 Chronic kidney disease, stage 3 unspecified; I48.0 Paroxysmal atrial fibrillation; E78.5 Hyperlipidemia, unspecified; C61 Malignant neoplasm of prostate; C79.51 Secondary malignant neoplasm of bone; F17.210 Nicotine dependence, cigarettes, uncomplicated; F12.90 Cannabis use, unspecified, uncomplicated; Z92.21 Personal history of antineoplastic chemotherapy; Z20.822 Contact with and (suspected) exposure to COVID-19; Z92.3 Personal history of irradiation; Z90.79 Acquired absence of other genital organ(s); Z90.49 Acquired absence of other specified parts of digestive tract; Z79.4 Long term (current) use of insulin; Z79.51 Long term (current) use of inhaled steroids; Z79.84 Long term (current) use of oral hypoglycemic drugs
CPT/HCPCS: 36415; 71045; 73130; 80053; 80069; 81001; 82565; 82948; 83036; 83605; 83615; 83735; 83880; 84484; 85025; 87040; 87637; 87641; 90471; 90714; 93005; 94640; 96361; 96365; 96366; 96367; 96372; 96375; 97161; 97165; 97535; 99285; A9270; G0378; J0295; J1650; J1815; J1938; J3370; J3475; J7120; J7512

== ENCOUNTER 2024-07-29 09:08 | Emergency (ER) | payer MEDICARE, SELFPAY ==
--- NOTE | ~2024-07-29 | CT_ITS ---
EXAMINATION: CT abdomen pelvis wo con DATE: 07/29/2024 10:24 INDICATION: Abdominal pain TECHNIQUE: Computed tomography (CT) of the abdomen and pelvis was performed without intravenous contr ast. Automated exposure control and iterative reconstruction technique were employed. The dose-length product was 937.29 mGy-cm. COMPARISON: 03/26/2024 FINDINGS: Moderate emphysema with mild atelectasis at the lung bases. Cluster of small calcified nodules at the basilar left lower lobe although multiple tiny splenic indications consistent with old granulomatous disease. Heart size is normal. Atherosclerotic coronary artery calcifications. No pericardial or ple ural effusion. Status post cholecystectomy. Liver, pancreas, bilateral adrenal glands are normal. Aga in seen are bilateral renal cysts measuring up to 2.5 cm the left kidney. There is also a 5 mm exophy tic hyperdense proteinaceous/hemorrhagic cyst at the lower pole the right kidney. There is prominent colonic diverticulosis with a sigmoid and descending colon predominance. There is no adjacent inflamm atory change to suggest diverticulitis. Small bowel and appendix are normal. There is reservoir for a penile prosthesis position in the left hemipelvis with catheter extending through the left inguinal canal where there is also a small fat-containing left inguinal hernia. Status post prostatectomy with surgical clips and pelvis consistent with associated pelvic lymph node dissection. Bladder is otherw ise unremarkable. No free intraperitoneal gas or fluid. No pathologically enlarged abdominal or pelvi c lymphadenopathy. Severe lumbar spondylosis with anterior fusion at L5-S1. IMPRESSION: 1. No acute intra-abdominal/pelvic process. 2. Diverticulosis. Reviewed, dictated and finalized at location A.
--- OUTSIDE RECORDS SUMMARY | 2024-07-29 09:11 | XMS_ITS | Referral Summary ---
Author Organization 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 [address] [place] [address] Gautam Cope MD 07/22/2024 Orders Only [facility] Information [facility] [address] [place] [address] Scanning, Provider 07/21/2024 Results Follow-Up [facility] [address] [phone] Fadi Corrales NP 07/19/2024 7:45 PM CDT - 07/19/2024 11:59 PM CDT Hospital Encounter [address] [address] Urinary frequency Discharge Disposition: Discharge to home or self care 07/19/2024 2:00 PM CDT Office Visit [facility] [address] [address] Clau Childers PA Urinary frequency (Primary Dx); Leukocytosis, unspecified type 07/18/2024 Patient Self-Triage [facility] [address] [place] [address] Mychart, Generic Provider 07/18/2024 1:00 PM CDT Office Visit [facility] Oncology [address] [facility] Floor [address] [place] [phone] Gautam Cope MD Prostate cancer (HCC) (Primary Dx) 07/18/2024 12:00 PM CDT Lab [facility] - Lab Collection [address] [facility] Floor [address] [place] [address] Prostate cancer (HCC) 07/18/2024 1:45 PM CDT Infusion [facility] - Infusion [address] [facility] Floor 6 [place] [address] Prostate cancer (HCC) (Primary Dx) 07/01/2024 Orders Only [facility] Information [facility] [address] [place] [address] Scanning, Provider 06/14/2024 6:15 PM VETERINARY MEDICAL OFFICER Lab [facility] [address] [place] [phone] GABRIELA (acute kidney injury) 06/14/2024 3:00 PM VETERINARY MEDICAL OFFICER Office Visit [facility] Nephrology [address] [facility] 5th [place] [address] [place] [phone] Lin Guerrero MD Chronic kidney disease, stage 3b (HCC) (Primary Dx); GABRIELA (acute kidney injury); Hypertension, essential; Secondary hyperparathyroidism of renal origin 06/08/2024 12:00 PM VETERINARY MEDICAL OFFICER Lab [facility] ([facility]) [address] [place] [phone] 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 chronic kidney disease (HCC); Hypertension, essential; Secondary hyperparathyroidism of renal origin; Stage 3 chronic kidney disease, unspecified whether stage 3a or 3b CKD (HCC); Primary hypertension; Vitamin D deficiency; Type 2 diabetes mellitus with stage 3a chronic kidney disease, with long-term current use of insulin (HCC); Fatigue, unspecified type; GABRIELA (acute kidney injury) 06/08/2024 9:45 AM VETERINARY MEDICAL OFFICER Office Visit [facility] [address] [facility] [address] [place] [phone] Kraig Ching MD Hypertension, essential (Primary Dx); Prostate cancer (HCC); Type 2 diabetes mellitus with stage 3b chronic kidney disease, with long-term current use of insulin (HCC); Stage 3b chronic kidney disease (HCC); Hyperlipidemia, unspecified hyperlipidemia type 05/24/2024 Orders Only [facility] Nephrology [facility] 5th [place] [address] [place] [phone] Lin Guerrero MD 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 [...] type; GABRIELA (acute kidney injury) 05/02/2024 Telephone [facility] [address] [facility] [address] [place] [phone] Kraig Ching MD Medical Question/Miscellaneous from Last 3 Months Allergies Active Allergy Reactions Criticality Noted Date Comments Atorvastatin Muscle pain Medium 12/14/2019 Medications pen needle, diabetic (BD Ultra-Fine Short Pen Needle) 31 gauge x 5/16 needle USE TO INJECT INSULIN 4 TIMES EVERY DAY DIRECTED 400 each 12/25/19 23 Active PreviDent 5000 Plus 1.1 [...] total) by mouth daily 30 capsule 04/25/19 026 Active ergocalciferol (VITAMIN D) 50,000 unit [...] 05/30/2024 Assessment & Plan (06/08/2024 4:46 AM VETERINARY MEDICAL OFFICER): Continue current regimen.Limit nephrotoxins.Reviewed creatinine. Avoid NSAIDS. [...] 03/08/2023 Assessment & Plan (06/08/2024 4:46 AM VETERINARY MEDICAL OFFICER): Hypertension is controlled. Continue current regimen. Assessment & Plan (10/05/2023 12:54 PM CDT): Hypertension is controlled. Decrease carvedilol to 12.5 mg. Assessment & Plan (03/08/2023 7:11 AM VETERINARY MEDICAL OFFICER): Hypertension is controlled. Continue current regimen. 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 Avoid NSAIDS. Assessment & Plan (10/05/2023 5:50 AM CDT): Continue current regimen.Limit nephrotoxins.Reviewed creatinine. Avoid NSAIDS. Assessment & Plan (03/08/2023 7:12 AM VETERINARY MEDICAL OFFICER): Continue current regimen.Limit nephrotoxins.Reviewed creatinine. Avoid NSAIDS. CKD (chronic kidney disease) 03/08/2022 Assessment & Plan (06/08/2024 4:45 AM VETERINARY MEDICAL OFFICER): Limit nephrotoxins. Monitor creatinine. Avoid NSAIDS.Follow with Nephrology. 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 chronic kidney disease 2021 Gastroesophageal reflux disease 04/08/2021 Assessment & Plan (03/08/2023 11:17 AM VETERINARY MEDICAL OFFICER): Reviewed dietary modifications. Continue PPI. Assessment & Plan (08/18/2022 6:36 AM CDT): Reviewed dietary modifications. Continue PPI. Assessment & Plan (02/12/2022 6:03 AM CDT): Reviewed dietary modifications. Continue PPI. Assessment & Plan (04/08/2021 5:55 AM VETERINARY MEDICAL OFFICER): Reviewed dietary modifications. Continue PPI. 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 Continue home PT exercises. Advised using a walker. Assessment & Plan (08/18/2022 11:47 AM CDT): Continue oxycodone. Continue home PT exercises. Advised using a walker. Assessment & Plan (02/12/2022 11:41 AM CDT): Continue oxycodone. Continue home PT exercises. A prescription for a walker. Assessment & Plan (04/08/2021 5:55 AM VETERINARY MEDICAL OFFICER): Continue oxycodone. Continue home PT exercises. Continue walker. Assessment & Plan (12/26/2020 10:48 AM CDT): Continue oxycodone. Script for walker. Assessment & Plan (09/26/2020 11:29 AM CDT): Continue ROM exercises and follow with Pain Management. Refill oxycodone as needed. Prostate cancer 09/06/2018 Assessment & Plan (06/08/2024 4:46 AM VETERINARY MEDICAL OFFICER): Follow with Oncology. Continue Zytiga. Assessment & [...] 01/25/2018 Assessment & Plan (03/07/2018 6:54 AM VETERINARY MEDICAL OFFICER): Hypertension is controlled. Continue current regimen. CHF [...] creatinine. Assessment & Plan (04/08/2021 5:54 AM VETERINARY MEDICAL OFFICER): Hypertension is controlled. Continue current regimen.Limit nephrotoxins. [...] NSAIDS. Assessment & Plan (03/07/2018 6:55 AM VETERINARY MEDICAL OFFICER): Hypertension is controlled. Continue current regimen. Limit nephrotoxins. Monitor creatinine. Avoid NSAIDS. Assessment & Plan (11/25/2017 7:09 AM CDT): Limit nephrotoxins. Monitor creatinine. Avoid NSAIDS. Duodenal ulcer 11/25/2017 Assessment & Plan (11/25/2017 10:16 AM CDT): Reviewed GI note . Continue pantoprazole. Avoid NSAIDS. Refer for EGD. PAF (paroxysmal atrial fibrillation) 10/22/2017 Assessment & Plan (03/07/2018 6:54 AM VETERINARY MEDICAL OFFICER): Continue rate control. Continue anticoagualtion. Anticipate starting [...] NSAIDS. Assessment & Plan (03/07/2018 6:55 AM VETERINARY MEDICAL OFFICER): Limit nephrotoxins. Monitor creatinine. Avoid NSAIDS. Assessment [...] diet. Assessment & Plan (04/08/2021 10:17 AM VETERINARY MEDICAL OFFICER): Reviewed HgBA1C elevated at 10.6 on 04/01/21. [...] therapy. Assessment & Plan (03/07/2018 6:57 AM VETERINARY MEDICAL OFFICER): Continue pravastatin. He had myalgias on other [...] diet. Assessment & Plan (03/02/2017 6:53 AM VETERINARY MEDICAL OFFICER): Hypertension is controlled. Continue current regimen. Reviewed low sodium diet. Assessment & Plan (01/15/2017 6:44 AM CDT): Reviewed proper diet. Continue statin therapy. Hyperlipidemia 01/12/2012 Assessment & Plan (06/08/2024 4:46 AM VETERINARY MEDICAL OFFICER): Continue pravastatin. Order lipid panel at next [...] 05/28/2023 Assessment & Plan (03/08/2023 11:40 AM VETERINARY MEDICAL OFFICER): Agree with cataract surgery. He has 1st [...] 08/30/2017 Assessment & Plan (03/02/2017 10:48 AM VETERINARY MEDICAL OFFICER): Mood is improved. Monitor off medication. Impotence [...] 200. Assessment & Plan (03/07/2018 6:56 AM VETERINARY MEDICAL OFFICER): Continue current regimen. Advised annual eye exam.Limit [...] 01/17/2019 Influenza, Unspecified 01/17/2019(Deferred: Daisy ent Refused) Ren[employer]Sim (J&J) SARS-CoV-2 Vaccination 06/14/2020, 06/14/2020 Pfizer SARS-CoV-2 [...] pur e alcohol) Occasional glass of wine. [employer] Answer Date Recorded In the past 12 months has [employer], oil, or water [place] threatened to shut off services in your [...] week 04/04/2024 How often do you attend [facility] or scientologist services? Never 04/04/2024 Do you belong to any clubs o r organizations such as mosque groups, unions, fraternal or athletic groups, or [...] file Legal Sex Male 4:46 PM VETERINARY MEDICAL OFFICER Gender Identity Not on file Sexual [...] cm (5' 9 ) 06/14/2024 2:58 PM VETERINARY MEDICAL OFFICER Body Mass Index 29.98 06/14/2024 2:58 PM VETERINARY MEDICAL OFFICER Plan of Treatment Not on file Goals Goal Patient Goal Type Associated Problems Recent Progress Patient-Stated? Author ZAK General Goal - Patient establishes care with [facility] ACO Care Management On track(2023 1:22 PM VETERINARY MEDICAL OFFICER) No Clarissa Luna RN Note: Problem: Lack of [facility] communication Interventions: - Provide coordination between [facility] company and patient. - Ensure [facility] has appropriate referral and orders to establish care with patient. - Follow up with patient to ensure initial visit was completed by [facility] and that a [facility] plan has been started. ZAK General Goal - Patient schedules and keeps appointments with all recommended providers ACO Care Management Improving( 1:22 PM VETERINARY MEDICAL OFFICER) No Clarissa Luna RN Note: Problem: Potential [...] medication regimen. Medical Devices Implanted Type Area Grey Tender Device Identifier Shelf Expiration Date Model / Serial / Lot [employer] Lens Iol Cna0t0.195 Clareon [employer]va Autonom Cna0t0.195 - [id number] - [id number] Implanted:Qty: 1 on 06/09/2023 by Higinio Connolly MD at [facility] Lens Right: Eye [employer] [id number] 10/27/2025 CNA0T0.19 5 / [id number] / [employer] Lens Iol Cna0t0.200 [employer] Autonom Cna0t0.200 - [id number] - [id number] Implanted:Qty: 1 on 05/19/2023 by Higinio Connolly MD at [facility] Left: Eye [employer] [id number] 10/06/2025 CNA0T0.20 0 / [id number] / Procedures Procedure Name Priority Date/Time Associated Diagnosis Comments SCAN - RADIOLOGY/IMAGING 07/22/2024 9:11 AM CDT SCAN - RADIOLOGY/IMAGING 07/21/2024 3:14 PM CDT POCT URINALYSIS DIPSTICK Routine 07/19/2024 2:16 PM [...] AM CDT EGFR Routine 06/14/2024 3:48 PM VETERINARY MEDICAL OFFICER GABRIELA (acute kidney injury) RENAL FUNCTION PANEL Routine 06/14/2024 3:48 PM VETERINARY MEDICAL OFFICER GABRIELA (acute kidney injury) URINALYSIS AND REFLEX TO MICROSCOPIC Routine 06/08/2024 10:47 AM VETERINARY MEDICAL OFFICER 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 chronic kidney disease (HCC) Hypertension, essential Secondary hyperparathyroidism of renal origin Stage 3 chronic kidney disease, unspecified whether stage 3a or 3b CKD (HCC) Primary hypertension Vitamin D deficiency Type 2 diabetes mellitus with stage 3a chronic kidney disease, with long-term current use of insulin (HCC) Fatigue, unspecified type GABRIELA (acute kidney injury) EGFR Routine 06/08/2024 10:44 AM VETERINARY MEDICAL OFFICER 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 chronic kidney disease (HCC) Hypertension, essential Secondary hyperparathyroidism of renal origin Stage 3 chronic kidney disease, unspecified whether stage 3a or 3b CKD (HCC) Primary hypertension Vitamin D deficiency Type 2 diabetes mellitus with stage 3a chronic kidney disease, with long-term current use of insulin (HCC) Fatigue, unspecified type GABRIELA (acute kidney injury) DIFFERENTIAL AUTO Routine 06/08/2024 10:44 AM VETERINARY MEDICAL OFFICER 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 chronic kidney disease [...] RENAL FUNCTION PANEL Routine 06/08/2024 10:44 AM VETERINARY MEDICAL OFFICER 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 chronic kidney disease [...] D 25 HYDROXY Routine 06/08/2024 10:44 AM VETERINARY MEDICAL OFFICER 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 chronic kidney disease [...] WITH AUTO DIFFERENTIAL Routine 06/08/2024 10:44 AM VETERINARY MEDICAL OFFICER 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 chronic kidney disease (HCC) Hypertension, essential Secondary hyperparathyroidism of renal origin Stage 3 chronic kidney disease, unspecified whether stage 3a or 3b CKD (HCC) Primary hypertension Vitamin D deficiency Type 2 diabetes mellitus with stage 3a chronic kidney disease, with long-term current use of insulin (HCC) Fatigue, unspecified type GABRIELA (acute kidney injury) PTH Routine 06/08/2024 10:44 AM VETERINARY MEDICAL OFFICER 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 chronic kidney disease [...] RATIO, URINE, RANDOM Routine 06/08/2024 10:44 AM VETERINARY MEDICAL OFFICER 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 chronic kidney disease (HCC) Hypertension, essential Secondary hyperparathyroidism of renal origin Stage 3 chronic kidney disease, unspecified whether stage 3a or 3b CKD (HCC) Primary hypertension Vitamin D deficiency Type 2 diabetes mellitus with stage 3a chronic kidney disease, with long-term current use of insulin (HCC) Fatigue, unspecified type GABRIELA (acute kidney injury) LIPID PANEL Routine 03/08/2023 11:55 AM VETERINARY MEDICAL OFFICER Hyperlipidemia, unspecified hyperlipidemia type ALBUMIN CREATININE RATIO, URINE Routine 01/01/2023 10:40 AM CDT Type 2 diabetes mellitus with stage 3a chronic kidney disease, with long-term current use of insulin (HCC) DIABETES EYE EXAM Routine 06/29/2018 from Last 3 Months or Most Recently Relevant to Health Maintenance Results * SCAN - RADIOLOGY/IMAGING (07/22/2024 9:11 AM CDT) Anatomical Region Laterality Modality Other us Provider Scanning Final Result * SCAN - RADIOLOGY/IMAGING (07/21/2024 3:14 PM CDT) Anatomical Region Laterality Modality Other Provider Scanning Final Result * (ABNORMAL) POCT urinalysis dipstick (07/19/2024 2:16 PM CDT) Color, Urine, POC Light Yellow Clarity, ur, POC Cloudy(A) Clear Glucose, ur, POC 100.(A) Negative MG/DL Bilirubin, ur, POC Negative Negative, Small, Moderate, Large Ketones, ur, POC Negative Negative Specific [place], POC 1.015 1.003 - 1.030 Blood, ur, POC Hemolyzed, trace(A) Negative pH, ur, POC 6.0 5.0 - 8.0 Protein, ur, POC 30.(A) Negative Urobilinogen, urine, POC 0.2 0.2 - 1.0 mg/dL Nitrite, ur, POC Negative Negative Leukocytes, ur, POC Negative Negative Lot Number [id number] Urine 07/19/2024 2:16 PM CDT Result [facility] Clau ESQUIVEL POINT OF CARE TEST ORDER ALAN Final Result * Urine culture Urine, clean voided (07/19/2024 12:00 PM CDT) Report Final Report: No growth Comment:Testing performed by : [facility], [address] [place]., [address] Urine, clean voided 07/19/2024 12:00 PM CDT 07/20/2024 2:19 AM CDT Narrative [facility] - 07/21/2024 7:38 AM CDT Testing performed by [facility] Microbiology Laboratory [phone]) Result [facility] Clau ESQUIVEL LAB MICROBIOLOGY - GENER AL ORDERABLES Final Result [facility] [id number] [address] Department [place] [address] * (ABNORMAL) eGFR (07/18/2024 12:07 PM CDT) [facility] eGFR 23(L) >=60 mL/min/1. 73 m2 [...] MD LAB BLOOD ORDERABLES Final Resul t [facility] [place] [address] * (ABNORMAL) Differential, auto (07/18/2024 12:07 PM CDT) [facility] Neutrophil abs 17.55(H) 1.50 - 6.50 K/cumm Comment:Testing performed by : [facility], [address] [place] [phone] Lymphocyte abs 0.96 0.80 - 3.30 K/cumm [facility]LINE PER[facility]O Comment:Testing performed by : [facility], [address] [place] [phone] Monocyte abs 1.48(H) 0.20 - 0.80 K/cumm [facility] Comment:Testing performed by : [facility], [address] [place] [phone] Eosinophil abs 0.06 0.00 - 0.50 K/cumm [facility] Comment:Testing performed by : [facility], [address] [place] [phone] Basophil abs 0.03 0.00 - 0.10 K/cumm [facility] Comment:Testing performed by : [facility], [address] [place] [phone] Neutrophil pct 87.4 % [facility] Comment: Interpretive Data Percent cell count reference ranges are not reported, since discordance with absolute values may lead to misinterpretation of CBC data. Current Interpretive Data was last revised on 2017. Testing performed by: [facility], [address] [place] [phone] Lymphocyte pct 4.8 % [facility] Comment: Interpretive Data Percent cell count reference ranges are not reported, since discordance with absolute values may lead to misinterpretation of CBC data. Current Interpretive Data was last revised on 2017. Testing performed by: [facility], [address] [place] [phone] Monocyte pct 7.4 % [facility] Comment: Interpretive Data Percent cell count reference ranges are not reported, since discordance with absolute values may lead to misinterpretation of CBC data. Current Interpretive Data was last revised on 2017. Testing performed by: [facility], [address] [place] [phone] Eosinophil pct 0.3 % [facility] Comment: Interpretive Data Percent cell count reference ranges are not reported, since discordance with absolute values may lead to misinterpretation of CBC data. Current Interpretive Data was last revised on 2017. Testing performed by: [facility], [address] [place] [phone] Basophil pct 0.2 % [facility] Comment: Interpretive Data Percent cell count reference ranges are not reported, since discordance with absolute values may lead to misinterpretation of CBC data. Current Interpretive Data was last revised on 2017. Testing performed by: [facility], [address] [place] [address] Blood 07/18/2024 12:0 7 PM CDT 07/18/2024 12:22 PM CDT us Gautam Cope MD LAB BLOOD ORDERABLES Final Resul t [facility] Department [place] [address] * (ABNORMAL) CBC with auto differential (07/18/2024 12:07 PM CDT) WBC 20.09(H) 3.80 - 9.90 K/cumm Comment:Testing performed by : [facility], [address] [place] [address] Hgb 12.1(L) 13.0 - 17.5 g/dL [facility] Comment:Testing performed by : [facility], [address] [place] [address] Hct 38.2(L) 38.9 - 50.3 % CERONEAL PERDOMO Comment:Testing performed by : [facility], [address] [place] [address] Plt 451(H) 150 - 400 K/cumm [facility]LINE PER[facility]O Comment:Testing performed by : [facility], [address] [place] [address] MPV 7.7 6.8 - 10.4 fL CERONEAL [facility] Comment:Testing performed by : [facility], [address] [place] [address] RBC 4.46 4.30 - 5.80 M/cumm CERONEAL [facility] Comment:Testing performed by : [facility], [address] [place] [address] MCV 85.5 81.3 - 96.4 fL CERONEAL [facility] Comment:Testing performed by : [facility], [address] [place] [address] MCH 27.1 27.1 - 33.3 pg [facility] Comment:Testing performed by : [facility], [address] [place] [address] MCHC 31.7(L) 32.3 - 35.7 g/dL [facility] Comment:Testing performed by : [facility], [address] [place] [address] RDW CV 14.9 11.1 - 14.9 % [facility] Comment:Testing performed by : [facility], [address] [place] [address] NRBC abs 0.00 0.00 - 0.01 K/cumm [facility] Comment:Testing performed by : [facility], [address] [place], [place] [phone] Blood 07/18/2024 12:0 7 PM CDT 07/18/2024 12:22 PM CDT Gautam Cope MD LAB BLOOD ORDERABLES Final Resul t [facility] [place] [address] * PSA diagnostic (07/18/2024 12:07 PM CDT) [...] ORDERABLES Final Resul t Performing Organization Address [facility] de Phone Number [facility] [place] [address] * Lactate dehydrogenase (LD) (07/18/2024 12:07 PM CDT) Lactate dehydrogenase (LDH) 216 100 - 250 Units/L Blood 07/18/2024 12:0 7 PM CDT 07/18/2024 12:25 PM CDT Gautam Cope MD LAB BLOOD ORDERABLES Final Resul t Performing Organization Address [facility] de Phone Number [facility] [place] [address] * (ABNORMAL) Hemoglobin A1c (07/18/2024 12:07 PM CDT) Hgb A1C 8.0(H) 4.0 - 5.6 % Estimated Average Glucose 183 mg/dL [facility] Comment: The ADA recommends reporting an estimated [...] ORDERABLES Final Resul t Performing Organization Address [facility] [place] [address] * (ABNORMAL) Comprehensive metabolic panel (07/18/2024 12:07 PM CDT) Sodium 142 135 - 145 mmol/L Potassium, pl 4.6 3.3 - 4.9 mmol/L [facility] Chloride 106 97 - 110 mmol/L [facility] CO2 24 22 - 32 mmol/L [facility] Anion gap 12 2 - 15 mmol/L [facility] BUN 52(H) 6 - 25 mg/dL [facility] Creatinine 2.66(H) 0.80 - 1.30 mg/dL [facility] Glucose 164 70 - 199 mg/dL [facility] [...] 2022. Calcium 9.0 8.5 - 10.3 mg/dL [facility] Bilirubin, total 0.5 0.1 - 1.2 mg/dL [facility] Protein, pl 6.7 6.5 - 8.5 g/dL [facility] Albumin 4.0 3.5 - 5.0 g/dL [facility] Alk phos 126 40 - 130 Units/L [facility] ALT 10 7 - 55 Units/L [facility] AST 13 10 - 50 Units/L [facility] Blood 07/18/2024 12:0 7 PM CDT 07/18/2024 12:25 PM CDT Gautam Cope MD LAB BLOOD ORDERABLES Final Resul t [facility] [place] [address] * SCAN - RADIOLOGY/IMAGING (07/01/2024 9:44 AM CDT) Anatomical Region Laterality Modality Other us Provider Scanning Final Result * (ABNORMAL) eGFR (06/14/2024 3:48 PM VETERINARY MEDICAL OFFICER) eGFR 26(L) >=60 mL/min/1. 73 m2 Comment: [...] last reviewed 2021. Blood 06/14/2024 3:48 PM VETERINARY MEDICAL OFFICER 06/14/2024 4:07 PM VETERINARY MEDICAL OFFICER us Lin Guerrero MD LAB BLOOD ORDERABLES Final Resul t [facility] [place] [address] * (ABNORMAL) Renal function panel (06/14/2024 3:48 PM VETERINARY MEDICAL OFFICER) Pathologist [facility] Sodium 143 135 - 145 mmol/L Potassium, pl 5.0(H) 3.3 - 4.9 mmol/L [facility] Chloride 105 97 - 110 mmol/L [facility] CO2 28 22 - 32 mmol/L [facility] Anion gap 10 2 - 15 mmol/L [facility] BUN 48(H) 6 - 25 mg/dL [facility] Creatinine 2.42(H) 0.80 - 1.30 mg/dL [facility] Glucose 152 70 - 199 mg/dL [facility] [...] 2022. Calcium 8.7 8.5 - 10.3 mg/dL [facility] Phosphorus, pl 3.1 2.3 - 4.5 mg/dL [facility] Albumin 3.9 3.5 - 5.0 g/dL [facility] Blood 06/14/2024 3:48 PM VETERINARY MEDICAL OFFICER 06/14/2024 4:03 PM VETERINARY MEDICAL OFFICER us Lin Guerrero MD LAB BLOOD ORDERABLES Final Resul t [facility] [place] [address] * Urinalysis reflex to microscopic (06/08/2024 10:47 AM VETERINARY MEDICAL OFFICER) Color, ur Straw Yellow Clarity, ur Clear Clear [facility] Specific gravity, ur 1.012 1.003 - 1.030 [facility] pH, urine 6.0 [facility] Comment: Interpretive Data U rine pH is affected by diet, medications, systemic acid-base disturbances, and renal tubular function. pH may affect urinary stone formation. For example, urine pH below 6.0 may help reduce the tendency for calcium phosphate stones and pH greater than 6.0 may reduce the tendency for uric acid stone formation. Source: [facility] Current Interpretive Data was last revised on 2017 Protein, ur ql Trace Negative [facility] Glucose, ur ql Negative Negative [facility] Ketones, ur Negative Negative [facility] Bilirubin, ur Negative Negative [facility] Blood, ur Negative Negative [facility] Urobilinogen, ur <2.0 <2.0 mg/dL [facility] Nitrite, ur Negative Negative [facility] Leukocyte esterase, ur Negative Negative [facility] UA reflex comment Reflex conditions for microscopic UA not met. [facility] Urine 06/08/2024 10:4 7 AM VETERINARY MEDICAL OFFICER 06/08/2024 11:41 AM VETERINARY MEDICAL OFFICER Lin Guerrero MD LAB URINE ORDERABLES Final Resul t Performing Organization Address [facility] [place] Co de Phone Number [facility] [place] [address] * (ABNORMAL) eGFR (06/08/2024 10:44 AM VETERINARY MEDICAL OFFICER) eGFR 22(L) >=60 mL/min/1. 73 m2 Comment: [...] reviewed 2021. Blood 06/08/2024 10:4 4 AM VETERINARY MEDICAL OFFICER 06/08/2024 11:23 AM VETERINARY MEDICAL OFFICER us Lin Guerrero MD LAB BLOOD ORDERABLES Final Resul t Performing Organization Address [facility]/ZIP Co de Phone Number [facility] [place] [address] * (ABNORMAL) Differential, auto (06/08/2024 10:44 AM VETERINARY MEDICAL OFFICER) Neutrophil abs 7.8(H) 1.5 - 6.5 K/cumm Imm gran abs 0.1 0.0 - 0.1 K/cumm [facility] Lymphocyte abs 1.9 0.8 - 3.3 K/cumm [facility] Monocyte abs 1.0(H) 0.2 - 0.8 K/cumm [facility] Eosinophil abs 0.1 0.0 - 0.5 K/cumm [facility] Basophil abs 0.0 0.0 - 0.1 K/cumm [facility] Neutrophil pct 71.1 % [facility] Comment: Interpretive Data Percent cell count reference ranges are not reported, since discordance with absolute values may lead to misinterpretation of CBC data. Current Interpretive Data was last revised on 2017. Imm gran pct 0.8 % [facility] Comment: Interpretive Data Percent cell count reference ranges are not reported, since discordance with absolute values may lead to misinterpretation of CBC data. Current Interpretive Data was last revised on 2017. Lymphocyte pct 17.1 % [facility] Comment: Interpretive Data Percent cell count reference ranges are not reported, since discordance with absolute values may lead to misinterpretation of CBC data. Current Interpretive Data was last revised on 2017. Monocyte pct 9.3 % [facility] Comment: Interpretive Data Percent cell count reference ranges are not reported, since discordance with absolute values may lead to misinterpretation of CBC data. Current Interpretive Data was last revised on 2017. Eosinophil pct 1.3 % [facility] Comment: Interpretive Data Percent cell count reference ranges are not reported, since discordance with absolute values may lead to misinterpretation of CBC data. Current Interpretive Data was last revised on 2017. Basophil pct 0.4 % [facility] Comment: Interpretive Data Percent cell count reference ranges are not reported, since discordance with absolute values may lead to misinterpretation of CBC data. Current Interpretive Data was last revised on 2017. Blood 06/08/2024 10:4 4 AM VETERINARY MEDICAL OFFICER 06/08/2024 11:23 AM VETERINARY MEDICAL OFFICER us Lin Guerrero MD LAB BLOOD ORDERABLES Final Resul t [facility] [place] [address] * (ABNORMAL) CBC with auto differential (06/08/2024 10:44 AM VETERINARY MEDICAL OFFICER) [facility] WBC 11.0(H) 3.8 - 9.9 K/cumm Hgb 12.0(L) 13.0 - 17.5 g/dL [facility] Hct 36.9(L) 38.9 - 50.3 % [facility] Plt 357 150 - 400 K/cumm [facility] MPV 9.8 9.1 - 12.3 fL [facility] RBC 4.27(L) 4.30 - 5.80 M/cumm [facility] MCV 86.4 81.3 - 96.4 fL [facility] MCH 28.1 27.1 - 33.3 pg [facility] MCHC 32.5 32.3 - 35.7 g/dL [facility] RDW CV 14.1 11.1 - 14.9 % [facility] RDW SD 44.2 35.7 - 48.1 fL [facility] NRBC abs 0.00 0.00 - 0.01 K/cumm [facility] Blood 06/08/2024 10:4 4 AM VETERINARY MEDICAL OFFICER 06/08/2024 11:23 AM VETERINARY MEDICAL OFFICER us Lin Guerrero MD LAB BLOOD ORDERABLES Final Resul t Performing Organization Address [facility] [place] Co de Phone Number [facility] [place] [address] * (ABNORMAL) Protein / creatinine ratio, urine, random (06/08/2024 10:44 AM VETERINARY MEDICAL OFFICER) [facility] Protein, ur, quant 21.3 mg/dL Comment: Interpretive Data No reference range established. Current interpretive data was last revised 2018. Creatinine Ur 52.2 mg/dL [facility] Comment: Interpretive Data No reference range established. Current interpretive data was last revised 2018. Protein/creatinin e ratio 408.0(H) 0.0 - 180.0 mg/g CR [facility] Urine 06/08/2024 10:4 4 AM VETERINARY MEDICAL OFFICER 06/08/2024 11:23 AM VETERINARY MEDICAL OFFICER us Lin Guerrero MD LAB URINE ORDERABLES Final Resul t Performing Organization Address [facility] [place] de Phone Number [facility] [place] [address] * Vitamin D 25 hydroxy (06/08/2024 10:44 AM VETERINARY MEDICAL OFFICER) Pathologist [facility] Vitamin D 25-OH 42 30 - 80 ng/mL Blood 06/08/2024 10:4 4 AM VETERINARY MEDICAL OFFICER 06/08/2024 11:23 AM VETERINARY MEDICAL OFFICER us Lin Guerrero MD LAB BLOOD ORDERABLES Final Resul t Performing Organization Address [facility] de Phone Number [place] [address] * (ABNORMAL) PTH (06/08/2024 10:44 AM VETERINARY MEDICAL OFFICER) Pathologist [facility] PTH 78(H) 15 - 65 pg/mL Blood 06/08/2024 10:4 4 AM VETERINARY MEDICAL OFFICER 06/08/2024 11:23 AM VETERINARY MEDICAL OFFICER us Lin Guerrero MD LAB BLOOD ORDERABLES Final Resul t Performing Organization Address [facility] de Phone Number [facility] [place] [address] * (ABNORMAL) Renal function panel (06/08/2024 10:44 AM VETERINARY MEDICAL OFFICER) Pathologist [facility] Sodium 142 135 - 145 mmol/L Potassium, pl 4.8 3.3 - 4.9 mmol/L [facility] Chloride 107 97 - 110 mmol/L [facility] CO2 27 22 - 32 mmol/L [facility] Anion gap 8 2 - 15 mmol/L [facility] BUN 60(H) 6 - 25 mg/dL [facility] Creatinine 2.72(H) 0.80 - 1.30 mg/dL [facility] Glucose 94 70 - 199 mg/dL [facility] [...] 2022. Calcium 9.0 8.5 - 10.3 mg/dL [facility] Phosphorus, pl 3.5 2.3 - 4.5 mg/dL [facility] Albumin 3.8 3.5 - 5.0 g/dL [facility] Blood 06/08/2024 10:4 4 AM VETERINARY MEDICAL OFFICER 06/08/2024 11:23 AM VETERINARY MEDICAL OFFICER us Lin Guerrero MD LAB BLOOD ORDERABLES Final Resul t [facility] [place] [address] * (ABNORMAL) Lipid panel (03/08/2023 11:55 AM VETERINARY MEDICAL OFFICER) Cholesterol 193 30 - 199 mg/dL [facility] Comment: [...] revised on 2017. Triglycerides 250(H) <=149 mg/dL [facility] Comment: Interpretive Data [...] revised on 2017. HDL 36(L) >=40 mg/dL [facility] Comment: Interpretive Data [...] on 2017. LDL, calculated 107 <=129 mg/dL [facility] Comment: Interpretive Data [...] revised on 2017. Non-HDL Cholesterol 157 mg/dL [facility] Comment: Interpretive Data [...] last revised on 2017. Chol/HDL ratio 5 [facility] Blood 03/08/2023 11:5 5 AM VETERINARY MEDICAL OFFICER 03/08/2023 3:48 PM VETERINARY MEDICAL OFFICER Result [facility] Kraig Ching MD LAB BLOOD ORDERABLES Final Re sult Performing Organization Address [facility] Co de Phone Number [facility] [place] [address] * (ABNORMAL) Albumin Creatinine Ratio, Urine (01/01/2023 10:40 AM CDT) Albumin Ur 227.3 mg/L [facility] Comment: Interpretive Data No reference range established. Current interpretive data was last revised 2018. Creatinine Ur 66.5 mg/dL [facility] Comment: Interpretive Data No reference range established. Current interpretive data was last revised 2018. Albumin Creatinine Ratio, Ur 342(H) 1 - 29 mg/g [facility] Urine 01/01/2023 10:4 0 AM CDT 01/01/2023 10:45 AM CDT Kraig Ching MD LAB URINE ORDERABLES Final Re sult Performing Organization Address [facility] [place] Co de Phone Number [place] [address] * DIABETES EYE EXAM (06/29/2018) Diabetic Eye Exam Normal Result [facility] Historical Provider HEALTH MAINTENANCE Final Result from Last 3 Months or Most Recently Relevant to Health Maintenance Insurance [facility] MEDICARE [facility] MEDICARE [employer] MEDICARE AETNA MEDICARE Advance Directives For more information, please contact: [phone] * Full Code (Latest Code Status on File) Date Activated Date Inactivated Comments 12/16/2017 2:44 PM 12/16/2017 7:18 PM Care Teams Yarn Texture Machine Operator Relationship Specialty Start Date End Date Kraig Ching MD [address] [facility] [address] [place] [address] PCP - General 07/10/16 Gautam Cope MD [address] [facility] [address] [place] [address] Medical Oncologist/Practical Nursing Instructor Medical Oncology 08/18/18 Tramaine Roe MD [address] [facility] [address] [place] [address] Referring Physician Urology 08/18/18 Sukhwinder Uribe MD [address] [place] [address] Consulting Physician Urology 08/18/18 Shay Guillermo MD [address] [address] Referring Physician Urology 08/18/18 Marsha Landis RN Registered Nurse 11/17/18
--- OUTSIDE RECORDS SUMMARY | 2024-07-29 09:11 | XMS_ITS | Encounter Summary ---
Author Organization [facility] Address [address] [place] [address] Phone Care Team Providers Care Retail Advertising Executive Name Role Phone Kraig Ching MD Primary Care Provider [phone] Gautam Cope MD Unavailable Tramaine Roe MD Unavailable [phone] Sukhwinder Uribe MD Unavailable [phone] Shay Guillermo MD Unavailable [phone] Marsha Landis RN Unavailable Unavailab Clarissa Harry RN Unavailable [phone] Encounter Details Date Type Department Care [...] file 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 Gender Identity Not on file Sexual Orientation Not on file documented as of this encounter Functional Status documented as of this encounter Plan of Treatment Scheduled Orders Name Type Priority Associated Diagnoses Orde r Schedule CARDIOLOGY DOCUMENT SCAN Cardiac Services Ordered: 03/21/2023 documented as of this encounter Visit Diagnoses Not on filedocumented in this encounter Care Teams Retail Advertising Executive Relationship Specialty Start Date End Date Kraig Ching MD [address] [facility] [address] [place] [address] PCP - General 07/10/16 Gautam Cope MD [address] [facility] [address] [place] [address] Medical Oncologist/Precision Thread Grinder Operator Medical Oncology 08/18/18 Tramaine Roe MD [address] [facility] [address] [place] [address] Referring Physician Urology 08/18/18 Sukhwinder Uribe MD [address] [facility] [address] [place] [address] Consulting Physician Urology 08/18/18 Shay Guillermo MD [address] [facility] [address] [place] [address] Referring Physician Urology 08/18/18 Marsha Landis RN Registered Nurse 11/17/18 Clarissa Luna RN [address] [place] [address] [address] [place] [address] Maintenance Coordinator 04/04/24 04/26/24 documented as of this encounter
--- OUTSIDE RECORDS SUMMARY | 2024-07-29 09:11 | XMS_ITS | Clinical Summary ---
Author Organization [facility] Address [address] [place] [address] Care Team Providers Care Union Organiser Name Role Phone Unavailable Primary Care Provider [...] Td Vaccines ( 1 - Tdap) 11/08/1959 Pneumococcal Vaccine: 50+ Ye ars (1 of 1 - PCV) 1990 Zoster Vaccines (1 of 2) 1990 RSV [...]
--- OUTSIDE RECORDS SUMMARY | 2024-07-29 09:11 | XMS_ITS ---
Author Organization [facility] Address [address] [place] [address] Care Team Providers Care It Manager Name Role Phone Kraig Ching MD Primary Care Provider [phone] Gautam Cope MD Unavailable Tramaine Roe MD Unavailable [phone] Sukhwinder Uribe MD Unavailable [phone] Shay Guillermo MD Unavailable [phone] Marsha Landis RN Unavailable Unavailab Active Problems Problem Noted Date Diagnosed Date Statin myopathy 06/08/2024 Essential hypertension 05/30/2024 Type 2 diabetes mellitus wit h stage 3b chronic kidney disease, with long-term current use of insulin 05/30/2024 Assessment & Plan (06/08/2024 4:46 AM SYSTEMS SOFTWARE SPECIALIST): Continue current regimen.Limit nephrotoxins.Reviewed creatinine. Avoid [...] 03/08/2023 Assessment & Plan (06/08/2024 4:46 AM SYSTEMS SOFTWARE SPECIALIST): Hypertension is controlled. Continue current regimen. Assessment & Plan (10/05/2023 12:54 PM CDT): Hypertension is controlled. Decrease carvedilol to 12.5 mg. Assessment & Plan (03/08/2023 7:11 AM SYSTEMS SOFTWARE SPECIALIST): Hypertension is controlled. Continue current regimen. 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 Avoid NSAIDS. Assessment & Plan (10/05/2023 5:50 AM CDT): Continue current regimen.Limit nephrotoxins.Reviewed creatinine. Avoid NSAIDS. Assessment & Plan (03/08/2023 7:12 AM SYSTEMS SOFTWARE SPECIALIST): Continue current regimen.Limit nephrotoxins.Reviewed creatinine. Avoid NSAIDS. CKD (chronic kidney disease) 03/08/2022 Assessment & Plan (06/08/2024 4:45 AM SYSTEMS SOFTWARE SPECIALIST): Limit nephrotoxins. Monitor creatinine. Avoid NSAIDS.Follow with Nephrology. 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 chronic kidney disease 2021 Gastroesophageal reflux disease 04/08/2021 Assessment & Plan (03/08/2023 11:17 AM SYSTEMS SOFTWARE SPECIALIST): Reviewed dietary modifications. Continue PPI. Assessment & Plan (08/18/2022 6:36 AM CDT): Reviewed dietary modifications. Continue PPI. Assessment & Plan (02/12/2022 6:03 AM CDT): Reviewed dietary modifications. Continue PPI. Assessment & Plan (04/08/2021 5:55 AM SYSTEMS SOFTWARE SPECIALIST): Reviewed dietary modifications. Continue PPI. 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 Continue home PT exercises. Advised using a walker. Assessment & Plan (08/18/2022 11:47 AM CDT): Continue oxycodone. Continue home PT exercises. Advised using a walker. Assessment & Plan (02/12/2022 11:41 AM CDT): Continue oxycodone. Continue home PT exercises. A prescription for a walker. Assessment & Plan (04/08/2021 5:55 AM SYSTEMS SOFTWARE SPECIALIST): Continue oxycodone. Continue home PT exercises. Continue walker. Assessment & Plan (12/26/2020 10:48 AM CDT): Continue oxycodone. Script for walker. Assessment & Plan (09/26/2020 11:29 AM CDT): Continue ROM exercises and follow with Pain Management. Refill oxycodone as needed. Prostate cancer 09/06/2018 Assessment & Plan (06/08/2024 4:46 AM SYSTEMS SOFTWARE SPECIALIST): Follow with Oncology. Continue Zytiga. Assessment [...] 01/25/2018 Assessment & Plan (03/07/2018 6:54 AM SYSTEMS SOFTWARE SPECIALIST): Hypertension is controlled. Continue current regimen. [...] creatinine. Assessment & Plan (04/08/2021 5:54 AM SYSTEMS SOFTWARE SPECIALIST): Hypertension is controlled. Continue current regimen.Limit [...] NSAIDS. Assessment & Plan (03/07/2018 6:55 AM SYSTEMS SOFTWARE SPECIALIST): Hypertension is controlled. Continue current regimen. Limit nephrotoxins. Monitor creatinine. Avoid NSAIDS. Assessment & Plan (11/25/2017 7:09 AM CDT): Limit nephrotoxins. Monitor creatinine. Avoid NSAIDS. Duodenal ulcer 11/25/2017 Assessment & Plan (11/25/2017 10:16 AM CDT): Reviewed GI note . Continue pantoprazole. Avoid NSAIDS. Refer for EGD. PAF (paroxysmal atrial fibrillation) 10/22/2017 Assessment & Plan (03/07/2018 6:54 AM SYSTEMS SOFTWARE SPECIALIST): Continue rate control. Continue anticoagualtion. Anticipate [...] NSAIDS. Assessment & Plan (03/07/2018 6:55 AM SYSTEMS SOFTWARE SPECIALIST): Limit nephrotoxins. Monitor creatinine. Avoid NSAIDS. [...] diet. Assessment & Plan (04/08/2021 10:17 AM SYSTEMS SOFTWARE SPECIALIST): Reviewed HgBA1C elevated at 10.6 on [...] therapy. Assessment & Plan (03/07/2018 6:57 AM SYSTEMS SOFTWARE SPECIALIST): Continue pravastatin. He had myalgias on [...] diet. Assessment & Plan (03/02/2017 6:53 AM SYSTEMS SOFTWARE SPECIALIST): Hypertension is controlled. Continue current regimen. Reviewed low sodium diet. Assessment & Plan (01/15/2017 6:44 AM CDT): Reviewed proper diet. Continue statin therapy. Hyperlipidemia 01/12/2012 Assessment & Plan (06/08/2024 4:46 AM SYSTEMS SOFTWARE SPECIALIST): Continue pravastatin. Order lipid panel at [...] 05/28/2023 Assessment & Plan (03/08/2023 11:40 AM SYSTEMS SOFTWARE SPECIALIST): Agree with cataract surgery. He has [...] 08/30/2017 Assessment & Plan (03/02/2017 10:48 AM SYSTEMS SOFTWARE SPECIALIST): Mood is improved. Monitor off medication. [...] 200. Assessment & Plan (03/07/2018 6:56 AM SYSTEMS SOFTWARE SPECIALIST): Continue current regimen. Advised annual eye exam.Limit nephrotoxins. Monitor creatinine. Avoid NSAIDS. Assessment & Plan (11/25/2017 10:16 AM CDT): Continue current regimen and add Januvia.Advised annual eye exam. Limit nephrotoxins. Monitor creatinine. Avoid NSAIDS. Assessment & Plan (01/15/2017 6:44 AM CDT): Continue current regimen. Advised annual eye exam. Reviewed proper diet. Continue statin therapy.
--- OUTSIDE RECORDS SUMMARY | 2024-07-29 09:11 | XMS_ITS | Encounter Summary ---
Author Organization [facility] Address [address] [place] [address] Phone Care Team Providers Care Hotel Supplies Salesperson Name Role Phone Kraig Ching MD Primary Care Provider [phone] Gautam Cope MD Unavailable Tramaine Roe MD Unavailable [phone] Sukhwinder Uribe MD Unavailable Shay Guillermo MD Unavailable [phone] Marsha Landis RN Unavailable Unavailab Ilene Kaur RN Unavailable [phone] Clarissa Luna RN Unavailable [phone] Encounter Details Date Type Department Care Team (Late st Contact Info) Description 12/06/2018 Telephone [facility] Oncology [address] [facility] Advanced Medicine 7th [place] [address] Salena Bryan NP [address] [place] [address] Social History Tobacco Use Types Packs/Day Years [...] on file 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 Gender Identity Not on file Sexual Orientation Not on file documented as of this encounter Plan of Treatment Not on file documented as of this encounter Visit Diagnoses Not on filedocumented in this encounter Care Teams Hotel Supplies Salesperson Relationship Specialty Start Date End Date Kraig Ching MD [address] [place] [address] PCP - General 07/10/16 Gautam Cope MD [address] [place] [address] Medical Oncologist/Appeals Manager Medical Oncology 08/18/18 Tramaine Roe MD [address] [place] [address] Referring Physician Urology 08/18/18 Sukhwinder Uribe MD [address] [place] [address] Consulting Physician Urology 08/18/18 Shay Guillermo MD [address] [place] [address] Referring Physician Urology 08/18/18 Marsha Landis, RN Registered Nurse 11/17/18 Ilene Fragoso RN [address] [place] [address] Fruit Peeler 12/23/18 11/01/19 Clarissa Luna RN [address] [facility] [address] [place] [address] Fruit Peeler 04/04/24 04/26/24 documented as of this encounter
--- OUTSIDE RECORDS SUMMARY | 2024-07-29 09:11 | XMS_ITS | Encounter Summary ---
Author Organization [facility] Address [address] [place] [address] Care Team Providers Care Youth Probation Officer Name Role Phone Kraig Ching MD Primary Care Provider [phone] Gautam Cope MD Unavailable Tramaine Roe MD Unavailable Sukhwinder Uribe MD Unavailable [phone] Shay Guillermo MD Unavailable Marsha Landis RN Unavailable Unavailab le Encounter Details Date Type Department Care Team (Late st Contact Info) Description 07/21/2024 Results Follow-Up [facility] at [address] [address] Fadi Corrales NP [address] [place] [address] [address] [place] [address] Social History Tobacco Use Types Packs/Day Years Used Date Smoking Tobacco: Former Cigarettes 0.3 52 1 958 - 2009 Passive Smoke Exposure: Past Smokeless Tobacco: Never Comments:Smoking History Pac ks/day: 10 Cigarettes Alcohol Use Standard Drinks/Week Comments Yes 0 (1 standard drink = 0.6 oz pur e alcohol) Occasional glass of wine. [facility] Utilities Answer Date Recorded In the past 12 months has e Seesearch, gas, oil, or water company threatened to [...] often do you attend chur ch or mandaeism services? Never 04/04/2024 Do you belong to any clubs o r organizations such as presybeterian groups, unions, fraternal or athletic groups, or [...] any time in the past [facility], were you homeless or living in a residential (including now)? No 04/04/2024 Personal Safety Answer Date Recorded Have you ever been in or are you currently in a harmful physical or emotional relationship or is someone making you feel afraid or unsafe? 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 Author ZKA General Goal - Patient establishes care with [facility] ACO Care Management On track(2023 1:22 PM ORNAMENTAL MACHINE OPERATOR) No Clarissa Luna RN Note: Problem: Lack of [facility] communication Interventions: - Provide coordination between [facility] company and patient. - Ensure [facility] has appropriate referral and orders to establish care with patient. - Follow up with patient to ensure initial visit was completed by [facility] and that a [facility] plan has been started. [facility]AK General Goal - Patient schedules and keeps appointments with all recommended providers ACO Care Management Improving( 1:22 PM ORNAMENTAL MACHINE OPERATOR) No Clarissa Luna RN Note: Problem: [...] filedocumented in this encounter Care Teams Youth Probation Officer Relationship Specialty Start Date End Date Kraig Ching MD [address] [facility] [address] [place] [address] PCP - General 07/10/16 Gautam Cope MD [address] [facility] [address] [place] [address] Medical Oncologist/Table Keeper Medical Oncology 08/18/18 Tramaine Roe MD [address] [facility] [address] [place] [address] Referring Physician Urology 08/18/18 Sukhwinder Uribe MD [address] [facility] [address] [place] [address] Consulting Physician Urology 08/18/18 Shay Guillermo MD [address] [facility] [address] [place] [address] Referring Physician Urology 08/18/18 Marsha Landis, RN Registered Nurse 11/17/18 documented as of this encounter
--- OUTSIDE RECORDS SUMMARY | 2024-07-29 09:11 | XMS_ITS | Encounter Summary ---
Author Organization [facility] Address [address] [place] [address] Phone Care Team Providers Care Lay Out Maker Name Role Phone Kraig Ching MD Primary Care Provider [phone] Gautam Cope MD Unavailable Tramaine Roe MD Unavailable Sukhwinder Uribe MD Unavailable [phone] Shay Guillermo MD Unavailable Marsha Landis RN Unavailable Unavailab Clarissa Harry RN Unavailable [phone] Encounter Details Date Type Department Care Team (Late st Contact Info) Description 12/09/2021 Telephone [facility] Oncology [address] [facility] [address] Medicine 7th [place] [address] [place] [address] Muna Saleem RN Social History [...] on file 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 Gender Identity Not on file Sexual Orientation Not on file documented as of this encounter Functional Status documented as of this encounter Plan of Treatment Not on file documented as of this encounter Visit Diagnoses Not on filedocumented in this encounter Care Teams Lay Out Maker Relationship Specialty Start Date End Date Kraig Ching MD [address] [place] [address] PCP - General 07/10/16 Gautam Cope MD [address] [place] [address] Medical Oncologist/Dry Box Operator Medical Oncology 08/18/18 Tramaine Roe MD [address] [place] [address] Referring Physician Urology 08/18/18 Sukhwinder Uribe MD [address] [place] [address] Consulting Physician Urology 08/18/18 Shay Guillermo MD [address] [place] [address] Referring Physician Urology 08/18/18 Marsha Landis, RN Registered Nurse 11/17/18 Clarissa Luna RN [address] [place] [address] [address] [place] [address] Envelope Machine Operator 04/04/24 04/26/24 documented as of this encounter
--- OUTSIDE RECORDS SUMMARY | 2024-07-29 09:11 | XMS_ITS | Clinical Summary ---
Author Organization [facility] Address [address] [place] [address] Care Team Providers Care Manager Cardiac Name Role Phone Kraig Ching MD Primary Care Provider [phone] Gautam Cope MD Unavailable Tramaine Roe MD Unavailable [phone] Sukhwinder Uribe MD Unavailable [phone] Shay Guillermo MD Unavailable [phone] Marsha Landis RN Unavailable Unavailab le Allergies [...] 05/30/2024 Assessment & Plan (06/08/2024 4:46 AM CHILD WELFARE SOCIAL WORKER): Continue current regimen.Limit nephrotoxins.Reviewed creatinine. Avoid NSAIDS. [...] 03/08/2023 Assessment & Plan (06/08/2024 4:46 AM CHILD WELFARE SOCIAL WORKER): Hypertension is controlled. Continue current regimen. Assessment & Plan (10/05/2023 12:54 PM CDT): Hypertension is controlled. Decrease carvedilol to 12.5 mg. Assessment & Plan (03/08/2023 7:11 AM CHILD WELFARE SOCIAL WORKER): Hypertension is controlled. Continue current regimen. 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 Avoid NSAIDS. Assessment & Plan (10/05/2023 5:50 AM CDT): Continue current regimen.Limit nephrotoxins.Reviewed creatinine. Avoid NSAIDS. Assessment & Plan (03/08/2023 7:12 AM CHILD WELFARE SOCIAL WORKER): Continue current regimen.Limit nephrotoxins.Reviewed creatinine. Avoid NSAIDS. CKD (chronic kidney disease) 03/08/2022 Assessment & Plan (06/08/2024 4:45 AM CHILD WELFARE SOCIAL WORKER): Limit nephrotoxins. Monitor creatinine. Avoid NSAIDS.Follow with Nephrology. 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 chronic kidney disease 2021 Gastroesophageal reflux disease 04/08/2021 Assessment & Plan (03/08/2023 11:17 AM CHILD WELFARE SOCIAL WORKER): Reviewed dietary modifications. Continue PPI. Assessment & Plan (08/18/2022 6:36 AM CDT): Reviewed dietary modifications. Continue PPI. Assessment & Plan (02/12/2022 6:03 AM CDT): Reviewed dietary modifications. Continue PPI. Assessment & Plan (04/08/2021 5:55 AM CHILD WELFARE SOCIAL WORKER): Reviewed dietary modifications. Continue PPI. 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 Continue home PT exercises. Advised using a walker. Assessment & Plan (08/18/2022 11:47 AM CDT): Continue oxycodone. Continue home PT exercises. Advised using a walker. Assessment & Plan (02/12/2022 11:41 AM CDT): Continue oxycodone. Continue home PT exercises. A prescription for a walker. Assessment & Plan (04/08/2021 5:55 AM CHILD WELFARE SOCIAL WORKER): Continue oxycodone. Continue home PT exercises. Continue walker. Assessment & Plan (12/26/2020 10:48 AM CDT): Continue oxycodone. Script for walker. Assessment & Plan (09/26/2020 11:29 AM CDT): Continue ROM exercises and follow with Pain Management. Refill oxycodone as needed. Prostate cancer 09/06/2018 Assessment & Plan (06/08/2024 4:46 AM CHILD WELFARE SOCIAL WORKER): Follow with Oncology. Continue Zytiga. Assessment & [...] 01/25/2018 Assessment & Plan (03/07/2018 6:54 AM CHILD WELFARE SOCIAL WORKER): Hypertension is controlled. Continue current regimen. CHF [...] creatinine. Assessment & Plan (04/08/2021 5:54 AM CHILD WELFARE SOCIAL WORKER): Hypertension is controlled. Continue current regimen.Limit nephrotoxins. [...] NSAIDS. Assessment & Plan (03/07/2018 6:55 AM CHILD WELFARE SOCIAL WORKER): Hypertension is controlled. Continue current regimen. Limit nephrotoxins. Monitor creatinine. Avoid NSAIDS. Assessment & Plan (11/25/2017 7:09 AM CDT): Limit nephrotoxins. Monitor creatinine. Avoid NSAIDS. Duodenal ulcer 11/25/2017 Assessment & Plan (11/25/2017 10:16 AM CDT): Reviewed GI note . Continue pantoprazole. Avoid NSAIDS. Refer for EGD. PAF (paroxysmal atrial fibrillation) 10/22/2017 Assessment & Plan (03/07/2018 6:54 AM CHILD WELFARE SOCIAL WORKER): Continue rate control. Continue anticoagualtion. Anticipate starting [...] NSAIDS. Assessment & Plan (03/07/2018 6:55 AM CHILD WELFARE SOCIAL WORKER): Limit nephrotoxins. Monitor creatinine. Avoid NSAIDS. Assessment [...] diet. Assessment & Plan (04/08/2021 10:17 AM CHILD WELFARE SOCIAL WORKER): Reviewed HgBA1C elevated at 10.6 on 04/01/21. [...] therapy. Assessment & Plan (03/07/2018 6:57 AM CHILD WELFARE SOCIAL WORKER): Continue pravastatin. He had myalgias on other [...] diet. Assessment & Plan (03/02/2017 6:53 AM CHILD WELFARE SOCIAL WORKER): Hypertension is controlled. Continue current regimen. Reviewed low sodium diet. Assessment & Plan (01/15/2017 6:44 AM CDT): Reviewed proper diet. Continue statin therapy. Hyperlipidemia 01/12/2012 Assessment & Plan (06/08/2024 4:46 AM CHILD WELFARE SOCIAL WORKER): Continue pravastatin. Order lipid panel at next [...] 05/28/2023 Assessment & Plan (03/08/2023 11:40 AM CHILD WELFARE SOCIAL WORKER): Agree with cataract surgery. He has 1st [...] 08/30/2017 Assessment & Plan (03/02/2017 10:48 AM CHILD WELFARE SOCIAL WORKER): Mood is improved. Monitor off medication. Impotence [...] 200. Assessment & Plan (03/07/2018 6:56 AM CHILD WELFARE SOCIAL WORKER): Continue current regimen. Advised annual eye exam.Limit nephrotoxins. Monitor creatinine. Avoid NSAIDS. Assessment & Plan (11/25/2017 10:16 AM CDT): Continue current regimen and add Januvia.Advised annual eye exam. Limit nephrotoxins. Monitor creatinine. Avoid NSAIDS. Assessment & Plan (01/15/2017 6:44 AM CDT): Continue current regimen. Advised annual eye exam. Reviewed proper diet. Continue statin therapy. Encounters Date Type Department Care Team Description 07/24/2024 Telephone [facility] Oncology [address] [place] [address] Gautam Cope MD 07/22/2024 Orders Only [facility] [address] [place] [address] Scanning, Provider 07/21/2024 Results Follow-Up [facility] at [address] [phone] Fadi Corrales NP 07/19/2024 7:45 PM CDT - 07/19/2024 11:59 PM CDT Hospital Encounter [facility] [address] [place] [address] Urinary frequency Discharge Disposition: Discharge to home or self care 07/19/2024 2:00 PM CDT Office Visit [facility] at [address] [phone] Clau Childers PA Urinary frequency (Primary Dx); Leukocytosis, unspecified type 07/18/2024 1:45 PM CDT Infusion [facility] - Infusion [address] [facility] Floor [address] [place] [address] Prostate cancer (HCC) (Primary Dx) 07/18/2024 1:00 PM CDT Office Visit [facility] Oncology [address] [place] [address] Floor 5 [place] [address] Gautam Cope MD Prostate cancer (HCC) (Primary Dx) 07/18/2024 12:00 PM CDT Lab [facility] - Lab Collection [address] [place] [address] [address] [place] [address] Prostate cancer (HCC) 07/18/2024 Patient Self-Triage [facility] [address] [place] [address] Mychart, Generic Provider 07/01/2024 Orders Only [facility] [address] [place] [address] Scanning, Provider 06/14/2024 6:15 PM CHILD WELFARE SOCIAL WORKER Lab [facility] [address] [place] [phone] GABRIELA (acute kidney injury) 06/14/2024 3:00 PM CHILD WELFARE SOCIAL WORKER Office Visit [facility] Nephrology [address] [place] [address] Medicine 5th [place] [address] [place] [phone] Lin Guerrero MD Chronic kidney disease, stage 3b (HCC) (Primary Dx); GABRIELA (acute kidney injury); Hypertension, essential; Secondary hyperparathyroidism of renal origin 06/08/2024 12:00 PM CHILD WELFARE SOCIAL WORKER Lab [facility] [address] [place] [phone] 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 chronic kidney disease (HCC); Hypertension, essential; Secondary hyperparathyroidism of renal origin; Stage 3 chronic kidney disease, unspecified whether stage 3a or 3b CKD (HCC); Primary hypertension; Vitamin D deficiency; Type 2 diabetes mellitus with stage 3a chronic kidney disease, with long-term current use of insulin (HCC); Fatigue, unspecified type; GABRIELA (acute kidney injury) 06/08/2024 9:45 AM CHILD WELFARE SOCIAL WORKER Office Visit [address] [place] [phone] Kraig Ching MD Hypertension, essential (Primary Dx); Prostate cancer (HCC); Type 2 diabetes mellitus with stage 3b chronic kidney disease, with long-term current use of insulin (HCC); Stage 3b chronic kidney disease (HCC); Hyperlipidemia, unspecified hyperlipidemia type 05/24/2024 Orders Only [facility] Nephrology [address] [place] [address] [facility] 5th [place] [address] [place] [address] Lin Guerrero MD 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 [...] type; GABRIELA (acute kidney injury) 05/02/[address] [place] [phone] Kraig Ching MD Medical Question/Miscellaneous from Last 3 Months Immunizations Immunization Administration Dates Next Due Influenza, Quad, Adjuvantate d, Intramuscular 02/22/2021 Influenza, Quadrivalent, Amelia l Culture-based MDCK, Preservative Free, Antibiotic Free, Intramuscular 02/06/2020 Influenza, Quadrivalent, Hig h Dose, Preservative Free, Intrr 12/21/2022,02/12/2022 Influenza, Quadrivalent, Spl it, Preservative Free, Intramuscular 01/14/2015 Influenza, Trivalent, High D ose, Split, Preservative Free, Intramuscular 01/17/2019 Influenza, Unspecified 01/17/2019(Deferred: Daisy ent Refused) Maternova (J&J) SARS-CoV-2 Vaccination 06/14/2020, 06/14/2020 Pfizer SARS-CoV-2 [...] pur e alcohol) Occasional glass of wine. [facility] Utilities Answer Date Recorded In the past 12 months has [employer] gas, oil, or water [employer] threatened to shut off services in your [...] often do you attend chur ch or advent services? Never 04/04/2024 Do you belong to [...] any time in the past 12 m [facility], were you homeless or living in a halfway (including now)? No 04/04/2024 Personal Safety Answer Date Recorded Have you ever been in or are you currently in a harmful physical or emotional relationship or is someone making you feel afraid or unsafe? Denies 06/09/2023 Sex and Gender Information Value Date Recorded Sex Assigned at Not on file Legal Sex Male 4:46 PM CHILD WELFARE SOCIAL WORKER Gender Identity Not on file [...] cm (5' 9 ) 06/14/2024 2:58 PM CHILD WELFARE SOCIAL WORKER Body Mass Index 29.98 06/14/2024 2:58 PM CHILD WELFARE SOCIAL WORKER Plan of Treatment Health Maintenance Due Date Last Done Comments DTaP/Tdap/Td Vaccine (1 - Tdap) 11/08/1951 Hepatitis B Screening 1958 Zoster Vaccine (1 of 2) 11/08/1959 Well Visit 65+ 03/27/2021 03/27/2020, 01/17/2019 Albumin Creatinine Ratio, Urine 01/02/2024 01/01/2023, 12/26/2020, 05/22/2019, Additional history exists Lipid Panel 03/08/2024 03/08/2023, 11/0 06/2021, 12/26/2020, Additional history exists Dilated Eye [...] 08/19/2023, Additional history exists eGFR 07/18/2025 07/18/2024, 08/2024, 06/08/2024, Additional history exists Pneumococcal vaccine 65+ Completed 08/08/2021, 11/2018 Goals Goal Patient Goal Type Associated Problems Recent Progress Patient-Stated? Author ZAK General Goal - Patient establishes care with [facility] ACO Care Management On track(2023 1:22 PM CHILD WELFARE SOCIAL WORKER) No Clarissa Luna RN Note: Problem: Lack of [facility] communication Interventions: - Provide coordination between [facility] company and patient. - Ensure [facility] has appropriate referral and orders to establish care with patient. - Follow up with patient to ensure initial visit was completed by [facility] and that a [facility] plan has been started. ZAK General Goal - Patient schedules and keeps appointments with all recommended providers ACO Care Management Improving( 1:22 PM CHILD WELFARE SOCIAL WORKER) No Clarissa Luna RN Note: Problem: Potential [...] medication regimen. Medical Devices Implanted Type Area [facility] Device Identifier Shelf Expiration Date Model / Serial / Lot [employer] Lens Iol Cna0t0.195 [facility] Autonom Cna0t0.195 - [id number] - [id number] Implanted:Qty: 1 on 06/09/2023 by Higinio Connolly MD at [facility] Lens Right: Eye [employer] [id number] 10/27/2025 CNA0T0.19 5 / [id number] / [employer] Lens Iol Cna0t0.200 [facility] Autonom Cna0t0.200 - [id number] - [id number] Implanted:Qty: 1 on 05/19/2023 by Higinio Connolly MD at [facility] Left: Eye [employer] [id number] 10/06/2025 CNA0T0.20 0 / [id number] / Procedures Procedure Name Priority Date/Time [...] AM CDT EGFR Routine 06/14/2024 3:48 PM CHILD WELFARE SOCIAL WORKER GABRIELA (acute kidney injury) RENAL FUNCTION PANEL Routine 06/14/2024 3:48 PM CHILD WELFARE SOCIAL WORKER GABRIELA (acute kidney injury) URINALYSIS AND REFLEX TO MICROSCOPIC Routine 06/08/2024 10:47 AM CHILD WELFARE SOCIAL WORKER 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 chronic kidney disease (HCC) Hypertension, essential Secondary hyperparathyroidism of renal origin Stage 3 chronic kidney disease, unspecified whether stage 3a or 3b CKD (HCC) Primary hypertension Vitamin D deficiency Type 2 diabetes mellitus with stage 3a chronic kidney disease, with long-term current use of insulin (HCC) Fatigue, unspecified type GABRIELA (acute kidney injury) EGFR Routine 06/08/2024 10:44 AM CHILD WELFARE SOCIAL WORKER 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 chronic kidney disease (HCC) Hypertension, essential Secondary hyperparathyroidism of renal origin Stage 3 chronic kidney disease, unspecified whether stage 3a or 3b CKD (HCC) Primary hypertension Vitamin D deficiency Type 2 diabetes mellitus with stage 3a chronic kidney disease, with long-term current use of insulin (HCC) Fatigue, unspecified type GABRIELA (acute kidney injury) DIFFERENTIAL AUTO Routine 06/08/2024 10:44 AM CHILD WELFARE SOCIAL WORKER 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 chronic kidney disease [...] RENAL FUNCTION PANEL Routine 06/08/2024 10:44 AM CHILD WELFARE SOCIAL WORKER 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 chronic kidney disease [...] D 25 HYDROXY Routine 06/08/2024 10:44 AM CHILD WELFARE SOCIAL WORKER 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 chronic kidney disease [...] WITH AUTO DIFFERENTIAL Routine 06/08/2024 10:44 AM CHILD WELFARE SOCIAL WORKER 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 chronic kidney disease (HCC) Hypertension, essential Secondary hyperparathyroidism of renal origin Stage 3 chronic kidney disease, unspecified whether stage 3a or 3b CKD (HCC) Primary hypertension Vitamin D deficiency Type 2 diabetes mellitus with stage 3a chronic kidney disease, with long-term current use of insulin (HCC) Fatigue, unspecified type GABRIELA (acute kidney injury) PTH Routine 06/08/2024 10:44 AM CHILD WELFARE SOCIAL WORKER 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 chronic kidney disease [...] RATIO, URINE, RANDOM Routine 06/08/2024 10:44 AM CHILD WELFARE SOCIAL WORKER 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 chronic kidney disease (HCC) Hypertension, essential Secondary hyperparathyroidism of renal origin Stage 3 chronic kidney disease, unspecified whether stage 3a or 3b CKD (HCC) Primary hypertension Vitamin D deficiency Type 2 diabetes mellitus with stage 3a chronic kidney disease, with long-term current use of insulin (HCC) Fatigue, unspecified type GABRIELA (acute kidney injury) LIPID PANEL Routine 03/08/2023 11:55 AM CHILD WELFARE SOCIAL WORKER Hyperlipidemia, unspecified hyperlipidemia type ALBUMIN CREATININE RATIO, [...] us Provider Scanning Final Result * (ABNORMAL) POCT urinalysis dipstick (07/19/2024 2:16 PM CDT) Color, Urine, POC Light Yellow Clarity, ur, POC Cloudy(A) Clear Glucose, ur, POC 100.(A) Negative MG/DL Bilirubin, ur, POC Negative Negative, Small, Moderate, Large Ketones, ur, POC Negative Negative Specific [place], POC 1.015 1.003 - 1.030 Blood, ur, POC Hemolyzed, trace(A) Negative pH, ur, POC 6.0 5.0 - 8.0 Protein, ur, POC 30.(A) Negative Urobilinogen, urine, POC 0.2 0.2 - 1.0 mg/dL Nitrite, ur, POC Negative Negative Leukocytes, ur, POC Negative Negative Lot Number [id number] Urine 07/19/2024 2:16 PM CDT Clau ESQU[facility] POINT OF CARE TEST ORDER ALAN Final Result * Urine culture Urine, clean voided (07/19/2024 12:00 PM CDT) Report Final Report: No growth Comment:Testing performed by : [facility], [address] [place]., [address] Urine, clean voided 07/19/2024 12:00 PM CDT 07/20/2024 2:19 AM CDT Narrative MERLINE AMADOR - 07/21/2024 7:38 AM CDT Testing performed by [facility] ([phone]) Clau [facility] LAB MICROBIOLOGY - [facility] AL ORDERABLES Final Result MRELINE [address] [address] Department of Laboratories [place], [place] [id number] * (ABNORMAL) eGFR (07/18/2024 12:07 PM CDT) [...] MD LAB BLOOD ORDERABLES Final Resul t [facility] [place] [address] * (ABNORMAL) Differential, auto (07/18/2024 12:07 PM CDT) Neutrophil abs 17.55(H) 1.50 - 6.50 K/cumm Comment:Testing performed by : [facility]e [facility], [address] [place] [phone] Lymphocyte abs 0.96 0.80 - 3.30 K/cumm [facility] Comment:Testing performed by : [facility], [address] [place], [place] [phone] Monocyte abs 1.48(H) 0.20 - 0.80 K/cumm [facility] Comment:Testing performed by : [facility], [address] [place], [place] [phone] Eosinophil abs 0.06 0.00 - 0.50 K/cumm [facility] Comment:Testing performed by : [facility], [address] [place] [phone] Basophil abs 0.03 0.00 - 0.10 K/cumm [facility] Comment:Testing performed by : [facility], [address] [place] [phone] Neutrophil pct 87.4 % [facility] Comment: Interpretive Data Percent cell count reference ranges are not reported, since discordance with absolute values may lead to misinterpretation of CBC data. Current Interpretive Data was last revised on 2017. Testing performed by: [facility], [address] [place] [phone] Lymphocyte pct 4.8 % [facility] Comment: Interpretive Data Percent cell count reference ranges are not reported, since discordance with absolute values may lead to misinterpretation of CBC data. Current Interpretive Data was last revised on 2017. Testing performed by: [facility], [address] [place] [address] Monocyte pct 7.4 % [facility] Comment: Interpretive Data Percent cell count reference ranges are not reported, since discordance with absolute values may lead to misinterpretation of CBC data. Current Interpretive Data was last revised on 2017. Testing performed by: [facility], [address] [place] [phone] Eosinophil pct 0.3 % [facility] Comment: Interpretive Data Percent cell count reference ranges are not reported, since discordance with absolute values may lead to misinterpretation of CBC data. Current Interpretive Data was last revised on 2017. Testing performed by: [facility], [address] [place] [address] Basophil pct 0.2 % [facility] Comment: Interpretive Data Percent cell count reference ranges are not reported, since discordance with absolute values may lead to misinterpretation of CBC data. Current Interpretive Data was last revised on 2017. Testing performed by: [facility], [address] [place] [address] Blood 07/18/2024 12:0 7 PM CDT 07/18/2024 12:22 PM CDT us Gautam Cope MD LAB BLOOD ORDERABLES Final Resul t [facility] Department of Laboratories [place], [place] [phone] * (ABNORMAL) CBC with auto differential (07/18/2024 12:07 PM CDT) WBC 20.09(H) 3.80 - 9.90 K/cumm Comment:Testing performed by : [facility], [address] [place] [address] Hgb 12.1(L) 13.0 - 17.5 g/dL [facility] Comment:Testing performed by : [facility], [address] [place] [address] Hct 38.2(L) 38.9 - 50.3 % [facility] Comment:Testing performed by : [facility], [address] [place] [address] Plt 451(H) 150 - 400 K/cumm [facility] Comment:Testing performed by : [facility], [address] [place] [address] MPV 7.7 6.8 - 10.4 fL [facility] Comment:Testing performed by : [facility], [address] [place], [place] [phone] RBC 4.46 4.30 - 5.80 M/cumm [facility] Comment:Testing performed by : [facility], [address] [place], [place] [phone] MCV 85.5 81.3 - 96.4 fL [facility] Comment:Testing performed by : [facility], [address] [place], [place] [phone] MCH 27.1 27.1 - 33.3 pg [facility] Comment:Testing performed by : [facility], [address] [place] [address] MCHC 31.7(L) 32.3 - 35.7 g/dL [facility] Comment:Testing performed by : [facility], [address] [place] [address] RDW CV 14.9 11.1 - 14.9 % [facility] Comment:Testing performed by : [facility], [address] [place] [address] NRBC abs 0.00 0.00 - 0.01 K/cumm [facility] Comment:Testing performed by : [facility], [address] [place] [address] Blood 07/18/2024 12:0 7 PM CDT 07/18/2024 12:22 PM CDT us Gautam Cope MD LAB BLOOD ORDERABLES Final Resul t [facility] Department of Laboratories [place] [id number] * PSA diagnostic (07/18/2024 12:07 PM CDT) [facility] PSA-Total <0.02 <=6.20 ng/mL Comment: Interpretive Data [...] Resul t Performing Organization Address [facility] de Phone Number [facility] [place] [address] * Lactate dehydrogenase (LD) (07/18/2024 12:07 PM CDT) [facility] Lactate dehydrogenase (LDH) 216 100 - 250 Units/L Blood 07/18/2024 12:0 7 PM CDT 07/18/2024 12:25 PM CDT Gautam Cope MD LAB BLOOD ORDERABLES Final Resul t Performing Organization Address [facility] de Phone Number [facility] [place] [address] * (ABNORMAL) Hemoglobin A1c (07/18/2024 12:07 PM CDT) [facility] Hgb A1C 8.0(H) 4.0 - 5.6 % Estimated Average Glucose 183 mg/dL [facility] Comment: The ADA recommends reporting [...] MD LAB BLOOD ORDERABLES Final Resul t [facility] [place] [address] * (ABNORMAL) Comprehensive metabolic panel (07/18/2024 12:07 PM CDT) Sodium 142 135 - 145 mmol/L Potassium, pl 4.6 3.3 - 4.9 mmol/L [facility] Chloride 106 97 - 110 mmol/L [facility] CO2 24 22 - 32 mmol/L [facility] Anion gap 12 2 - 15 mmol/L [facility] BUN 52(H) 6 - 25 mg/dL [facility] Creatinine 2.66(H) 0.80 - 1.30 mg/dL [facility] Glucose 164 70 - 199 mg/dL [facility] Comment: Interpretive Data Fasting glucose [...] 2022. Calcium 9.0 8.5 - 10.3 mg/dL [facility] Bilirubin, total 0.5 0.1 - 1.2 mg/dL [facility] Protein, pl 6.7 6.5 - 8.5 g/dL [facility] Albumin 4.0 3.5 - 5.0 g/dL [facility] Alk phos 126 40 - 130 Units/L [facility] ALT 10 7 - 55 Units/L [facility] AST 13 10 - 50 Units/L [facility] Blood 07/18/2024 12:0 7 PM CDT 07/18/2024 12:25 PM CDT us Gautam Cope MD LAB BLOOD ORDERABLES Final Resul t Performing Organization Address [facility] Co de Phone Number [facility] [place] [address] * SCAN - RADIOLOGY/IMAGING (07/01/2024 9:44 AM CDT) Anatomical Region Laterality Modality Other us Provider Scanning Final Result * (ABNORMAL) eGFR (06/14/2024 3:48 PM CHILD WELFARE SOCIAL WORKER) eGFR 26(L) >=60 mL/min/1. 73 m2 Comment: [...] last reviewed 2021. Blood 06/14/2024 3:48 PM CHILD WELFARE SOCIAL WORKER 06/14/2024 4:07 PM CHILD WELFARE SOCIAL WORKER us Lin Guerrero MD LAB BLOOD ORDERABLES Final Resul t Performing Organization Address [facility] Co de Phone Number [facility] [place] [address] * (ABNORMAL) Renal function panel (06/14/2024 3:48 PM CHILD WELFARE SOCIAL WORKER) Pathologist [facility] Sodium 143 135 - 145 mmol/L Potassium, pl 5.0(H) 3.3 - 4.9 mmol/L [facility] Chloride 105 97 - 110 mmol/L [facility] CO2 28 22 - 32 mmol/L [facility] Anion gap 10 2 - 15 mmol/L [facility] BUN 48(H) 6 - 25 mg/dL [facility] Creatinine 2.42(H) 0.80 - 1.30 mg/dL [facility] Glucose 152 70 - 199 mg/dL [facility] Comment: Interpretive Data Fasting glucose [...] 2022. Calcium 8.7 8.5 - 10.3 mg/dL [facility] Phosphorus, pl 3.1 2.3 - 4.5 mg/dL [facility] Albumin 3.9 3.5 - 5.0 g/dL [facility] Blood 06/14/2024 3:48 PM CHILD WELFARE SOCIAL WORKER 06/14/2024 4:03 PM CHILD WELFARE SOCIAL WORKER us Lin Guerrero MD LAB BLOOD ORDERABLES Final Resul t [facility] [place] [address] * Urinalysis reflex to microscopic (06/08/2024 10:47 AM CHILD WELFARE SOCIAL WORKER) Pathologist [facility] Color, ur Straw Yellow Clarity, ur Clear Clear [facility] Specific gravity, ur 1.012 1.003 - 1.030 [facility] pH, urine 6.0 [facility] Comment: Interpretive Data U rine pH is affected by diet, medications, systemic acid-base disturbances, and renal tubular function. pH may affect urinary stone formation. For example, urine pH below 6.0 may help reduce the tendency for calcium phosphate stones and pH greater than 6.0 may reduce the tendency for uric acid stone formation. Source: [facility] [employer] Current Interpretive Data was last revised on 2017 Protein, ur ql Trace Negative [facility] Glucose, ur ql Negative Negative [facility] Ketones, ur Negative Negative [facility] Bilirubin, ur Negative Negative [facility] Blood, ur Negative Negative [facility] Urobilinogen, ur <2.0 <2.0 mg/dL [facility] Nitrite, ur Negative Negative [facility] Leukocyte esterase, ur Negative Negative [facility] UA reflex comment Reflex conditions for microscopic UA not met. [facility] Urine 06/08/2024 10:4 7 AM CHILD WELFARE SOCIAL WORKER 06/08/2024 11:41 AM CHILD WELFARE SOCIAL WORKER us Lin Guerrero MD LAB URINE ORDERABLES Final Resul t [facility] [place] [address] * (ABNORMAL) eGFR (06/08/2024 10:44 AM CHILD WELFARE SOCIAL WORKER) eGFR 22(L) >=60 mL/min/1. 73 m2 Comment: [...] reviewed 2021. Blood 06/08/2024 10:4 4 AM CHILD WELFARE SOCIAL WORKER 06/08/2024 11:23 AM CHILD WELFARE SOCIAL WORKER us Lin Guerrero MD LAB BLOOD ORDERABLES Final Resul t [facility] [place] [address] * (ABNORMAL) Differential, auto (06/08/2024 10:44 AM CHILD WELFARE SOCIAL WORKER) Neutrophil abs 7.8(H) 1.5 - 6.5 K/cumm Imm gran abs 0.1 0.0 - 0.1 K/cumm [facility] Lymphocyte abs 1.9 0.8 - 3.3 K/cumm [facility] Monocyte abs 1.0(H) 0.2 - 0.8 K/cumm [facility] Eosinophil abs 0.1 0.0 - 0.5 K/cumm [facility] Basophil abs 0.0 0.0 - 0.1 K/cumm [facility] Neutrophil pct 71.1 % [facility] Comment: Interpretive Data Percent cell count reference ranges are not reported, since discordance with absolute values may lead to misinterpretation of CBC data. Current Interpretive Data was last revised on 2017. Imm gran pct 0.8 % [facility] Comment: Interpretive Data Percent cell count reference ranges are not reported, since discordance with absolute values may lead to misinterpretation of CBC data. Current Interpretive Data was last revised on 2017. Lymphocyte pct 17.1 % [facility] Comment: Interpretive Data Percent cell count reference ranges are not reported, since discordance with absolute values may lead to misinterpretation of CBC data. Current Interpretive Data was last revised on 2017. Monocyte pct 9.3 % [facility] Comment: Interpretive Data Percent cell count reference ranges are not reported, since discordance with absolute values may lead to misinterpretation of CBC data. Current Interpretive Data was last revised on 2017. Eosinophil pct 1.3 % [facility] Comment: Interpretive Data Percent cell count reference ranges are not reported, since discordance with absolute values may lead to misinterpretation of CBC data. Current Interpretive Data was last revised on 2017. Basophil pct 0.4 % [facility] Comment: Interpretive Data Percent cell count reference ranges are not reported, since discordance with absolute values may lead to misinterpretation of CBC data. Current Interpretive Data was last revised on 2017. Blood 06/08/2024 10:4 4 AM CHILD WELFARE SOCIAL WORKER 06/08/2024 11:23 AM CHILD WELFARE SOCIAL WORKER us Lin Guerrero MD LAB BLOOD ORDERABLES Final Resul t [facility] [place] [address] * (ABNORMAL) CBC with auto differential (06/08/2024 10:44 AM CHILD WELFARE SOCIAL WORKER) WBC 11.0(H) 3.8 - 9.9 K/cumm Hgb 12.0(L) 13.0 - 17.5 g/dL [facility] Hct 36.9(L) 38.9 - 50.3 % [facility] Plt 357 150 - 400 K/cumm [facility] MPV 9.8 9.1 - 12.3 fL [facility] RBC 4.27(L) 4.30 - 5.80 M/cumm [facility] MCV 86.4 81.3 - 96.4 fL [facility] MCH 28.1 27.1 - 33.3 pg [facility] MCHC 32.5 32.3 - 35.7 g/dL [facility] RDW CV 14.1 11.1 - 14.9 % [facility] RDW SD 44.2 35.7 - 48.1 fL [facility] NRBC abs 0.00 0.00 - 0.01 K/cumm [facility] Blood 06/08/2024 10:4 4 AM CHILD WELFARE SOCIAL WORKER 06/08/2024 11:23 AM CHILD WELFARE SOCIAL WORKER Lin Guerrero MD LAB BLOOD ORDERABLES Final Resul t Performing Organization Address [facility] Phone Number [facility] [place] [address] * (ABNORMAL) Protein / creatinine ratio, urine, random (06/08/2024 10:44 AM CHILD WELFARE SOCIAL WORKER) Pathologist [facility] Protein, ur, quant 21.3 mg/dL Comment: Interpretive Data No reference range established. Current interpretive data was last revised 2018. Creatinine Ur 52.2 mg/dL [facility] Comment: Interpretive Data No reference range established. Current interpretive data was last revised 2018. Protein/creatinin e ratio 408.0(H) 0.0 - 180.0 mg/g CR [facility] Urine 06/08/2024 10:4 4 AM CHILD WELFARE SOCIAL WORKER 06/08/2024 11:23 AM CHILD WELFARE SOCIAL WORKER Lin Guerrero MD LAB URINE ORDERABLES Final Resul t Performing Organization Address [facility] Phone Number [facility] [place] [address] * Vitamin D 25 hydroxy (06/08/2024 10:44 AM CHILD WELFARE SOCIAL WORKER) Pathologist [facility] Vitamin D 25-OH 42 30 - 80 ng/mL Blood 06/08/2024 10:4 4 AM CHILD WELFARE SOCIAL WORKER 06/08/2024 11:23 AM CHILD WELFARE SOCIAL WORKER Lin Guerrero MD LAB BLOOD ORDERABLES Final Resul t Performing Organization Address [facility] Phone Number [facility] [place] [address] * (ABNORMAL) PTH (06/08/2024 10:44 AM CHILD WELFARE SOCIAL WORKER) PTH 78(H) 15 - 65 pg/mL Blood 06/08/2024 10:4 4 AM CHILD WELFARE SOCIAL WORKER 06/08/2024 11:23 AM CHILD WELFARE SOCIAL WORKER Lin Guerrero MD LAB BLOOD ORDERABLES Final Resul t [facility] [place] [address] * (ABNORMAL) Renal function panel (06/08/2024 10:44 AM CHILD WELFARE SOCIAL WORKER) Sodium 142 135 - 145 mmol/L Potassium, pl 4.8 3.3 - 4.9 mmol/L [facility] Chloride 107 97 - 110 mmol/L [facility] CO2 27 22 - 32 mmol/L [facility] Anion gap 8 2 - 15 mmol/L [facility] BUN 60(H) 6 - 25 mg/dL [facility] Creatinine 2.72(H) 0.80 - 1.30 mg/dL [facility] Glucose 94 70 - 199 mg/dL [facility] Comment: Interpretive Data Fasting glucose [...] 2022. Calcium 9.0 8.5 - 10.3 mg/dL [facility] Phosphorus, pl 3.5 2.3 - 4.5 mg/dL [facility] Albumin 3.8 3.5 - 5.0 g/dL [facility] Blood 06/08/2024 10:4 4 AM CHILD WELFARE SOCIAL WORKER 06/08/2024 11:23 AM CHILD WELFARE SOCIAL WORKER Lin Guerrero MD LAB BLOOD ORDERABLES Final Resul t [facility] [place] [address] * (ABNORMAL) Lipid panel (03/08/2023 11:55 AM CHILD WELFARE SOCIAL WORKER) Cholesterol 193 30 - 199 mg/dL [facility] Comment: Interpretive Data Ages < [...] on 2017. Triglycerides 250(H) <=149 mg/dL [facility] Comment: Interpretive Data Ages < [...] on 2017. HDL 36(L) >=40 mg/dL [facility] Comment: Interpretive Data Ages < [...] 2017. LDL, calculated 107 <=129 mg/dL [facility] Comment: Interpretive Data Ages < [...] on 2017. Non-HDL Cholesterol 157 mg/dL [facility] Comment: Interpretive Data Ages < [...] revised on 2017. Chol/HDL ratio 5 [facility] Blood 03/08/2023 11:5 5 AM CHILD WELFARE SOCIAL WORKER 03/08/2023 3:48 PM CHILD WELFARE SOCIAL WORKER Kraig Ching MD LAB BLOOD ORDERABLES Final Re sult [facility] [place] [address] * (ABNORMAL) Albumin Creatinine Ratio, Urine (01/01/2023 10:40 AM CDT) Albumin Ur 227.3 mg/L [facility] Comment: Interpretive Data No reference range established. Current interpretive data was last revised 2018. Creatinine Ur 66.5 mg/dL [facility] Comment: Interpretive Data No reference range established. Current interpretive data was last revised 2018. Albumin Creatinine Ratio, Ur 342(H) 1 - 29 mg/g [facility] Urine 01/01/2023 10:4 0 AM CDT 01/01/2023 10:45 AM CDT us Kraig Ching MD LAB URINE ORDERABLES Final Re sult [facility] [place] [address] * DIABETES EYE EXAM (06/29/2018) Diabetic Eye Exam Normal us Historical Provider HEALTH MAINTENANCE Final Result from Last 3 Months or Most Recently Relevant to Health Maintenance Insurance [facility] MEDICARE [facility] MEDICARE [facility] MEDICARE Advance Directives For more information, please contact: [phone] * Full Code (Latest Code Status on File) Date Activated Date Inactivated Comments 12/16/2017 2:44 PM 12/16/2017 7:18 PM Care Teams Manager Cardiac Relationship Specialty Start Date End Date Kraig Ching MD [address] [facility] [address] [place] [address] PCP - General 07/10/16 Gautam Cope MD [address] [facility] [address] [place] [address] Medical Oncologist/Migration Agent Medical Oncology 08/18/18 Tramaine Roe MD [address] [facility] [address] [place] [address] Referring Physician Urology 08/18/18 Sukhwinder Uribe MD [address] [facility] [address] [place] [address] Consulting Physician Urology 08/18/18 Shay Guillermo MD [address] [facility] [address] [place] [address] Referring Physician Urology 08/18/18 Marsha Landis, RN Registered Nurse 11/17/18
[2024-07-29 09:16] VITALS: BP 101/60; PULSE 90; RESP 16; TEMP 36.7; O2SAT 96
[2024-07-29 09:50] LABS: Basophils Percent Auto 0.4 % (0.2-1.2); Eosinophils Absolute Auto 0.3 K/mm3 (0-0.3); Eosinophils Percent Auto 3.4 % (0-4.4); Hematocrit 37.6 % (42.0-52.0); Hemoglobin 11.7 g/dL (14.0-18.0); Immature Granulocyte Absolute 0.08 K/mm3 (0.00-0.031); Immature Granulocyte Percent A 0.8 % (0-0.5); Lymphocytes Absolute Auto 1.47 K/mm3 (0.9-3.2); Lymphocytes Percent Auto 14.6 % (18.3-44.2); Mean Corpuscular HGB Conc 31.1 g/dl (32-36); Mean Corpuscular Hemoglobin 27.3 pg (26-34); Mean Corpuscular Volume 87.6 fl (80-100); Mean Platelet Volume 9.7 fl (7.4-10.4); Monocytes Absolute Auto 1.1 K/mm3 (0.1-0.6); Monocytes Percent Auto 10.8 % (2.6-8.5); Neutrophils Absolute Auto 7.1 K/mm3 (1.3-6.7); Platelet Count Result 525 k/mm3 (150-375); Red Blood Count 4.29 M/mm3 (4.6-6.20); Red Cell Distribution Width 13.5 % (11.5-14.5); White Blood Count 10.1 K/mm3 (4.5-10.0)
--- OUTSIDE RECORDS SUMMARY | 2024-07-29 09:59 | XMS_ITS | Encounter Summary ---
Author Organization [facility] Address [address] [place] [address] Phone Care Team Providers Care Cattle Tester Name Role Phone Kraig Ching MD Primary Care Provider [phone] Gautam Cope MD Unavailable Tramaine Roe MD Unavailable [phone] Sukhwinder Uribe MD Unavailable [phone] Shay Guillermo MD Unavailable [phone] Marsha Landis RN Unavailable Unavailab Clarissa Harry RN Unavailable [phone] Encounter Details Date Type Department Care Team (Late st Contact Info) Description 12/09/2021 Telephone [facility] Oncology [address] [facility] Advanced Medicine 7th [place] [address] [place] [address] Muna Saleem RN Social History [...] Legal Sex Male 4:46 PM DIRECTOR OF SUSTAINABILITY Gender Identity Not on file Sexual Orientation Not on file documented as of this encounter Functional Status documented as of this encounter Plan of Treatment Not on file documented as of this encounter Visit Diagnoses Not on filedocumented in this encounter Care Teams Cattle Tester Relationship Specialty Start Date End Date Kraig Ching MD [address] [place] [address] PCP - General 07/10/16 Gautam Cope MD [address] [place] [address] Medical Oncologist/Dispatcher Ship Pilot Medical Oncology 08/18/18 Tramaine Roe MD [address] [place] [address] Referring Physician Urology 08/18/18 Sukhwinder Uribe MD [address] [place] [address] Consulting Physician Urology 08/18/18 Shay Guillermo MD [address] [place] [address] Referring Physician Urology 08/18/18 Marsha Landis, RN Registered Nurse 11/17/18 Clarissa Luna RN [address] [place] [address] [address] [place] [address] Calculus Teacher 04/04/24 04/26/24 documented as of this encounter
--- OUTSIDE RECORDS SUMMARY | 2024-07-29 09:59 | XMS_ITS | Clinical Summary ---
Author Organization [facility] Address [address] [place] [address] Care Team Providers Care Textile Technical Officer Name Role Phone Kraig Ching MD Primary Care Provider [phone] Gautam Cope MD Unavailable Tramaine Roe MD Unavailable [phone] Sukhwinder Uribe MD Unavailable [phone] Shay Guillermo MD Unavailable [phone] Marsha Landis RN Unavailable Unavailab le Allergies [...] 05/30/2024 Assessment & Plan (06/08/2024 4:46 AM SALES NEGOTIATOR): Continue current regimen.Limit nephrotoxins.Reviewed creatinine. Avoid NSAIDS. [...] 03/08/2023 Assessment & Plan (06/08/2024 4:46 AM SALES NEGOTIATOR): Hypertension is controlled. Continue current regimen. Assessment & Plan (10/05/2023 12:54 PM CDT): Hypertension is controlled. Decrease carvedilol to 12.5 mg. Assessment & Plan (03/08/2023 7:11 AM SALES NEGOTIATOR): Hypertension is controlled. Continue current regimen. 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 Avoid NSAIDS. Assessment & Plan (10/05/2023 5:50 AM CDT): Continue current regimen.Limit nephrotoxins.Reviewed creatinine. Avoid NSAIDS. Assessment & Plan (03/08/2023 7:12 AM SALES NEGOTIATOR): Continue current regimen.Limit nephrotoxins.Reviewed creatinine. Avoid NSAIDS. CKD (chronic kidney disease) 03/08/2022 Assessment & Plan (06/08/2024 4:45 AM SALES NEGOTIATOR): Limit nephrotoxins. Monitor creatinine. Avoid NSAIDS.Follow with Nephrology. 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 chronic kidney disease 2021 Gastroesophageal reflux disease 04/08/2021 Assessment & Plan (03/08/2023 11:17 AM SALES NEGOTIATOR): Reviewed dietary modifications. Continue PPI. Assessment & Plan (08/18/2022 6:36 AM CDT): Reviewed dietary modifications. Continue PPI. Assessment & Plan (02/12/2022 6:03 AM CDT): Reviewed dietary modifications. Continue PPI. Assessment & Plan (04/08/2021 5:55 AM SALES NEGOTIATOR): Reviewed dietary modifications. Continue PPI. 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 Continue home PT exercises. Advised using a walker. Assessment & Plan (08/18/2022 11:47 AM CDT): Continue oxycodone. Continue home PT exercises. Advised using a walker. Assessment & Plan (02/12/2022 11:41 AM CDT): Continue oxycodone. Continue home PT exercises. A prescription for a walker. Assessment & Plan (04/08/2021 5:55 AM SALES NEGOTIATOR): Continue oxycodone. Continue home PT exercises. Continue walker. Assessment & Plan (12/26/2020 10:48 AM CDT): Continue oxycodone. Script for walker. Assessment & Plan (09/26/2020 11:29 AM CDT): Continue ROM exercises and follow with Pain Management. Refill oxycodone as needed. Prostate cancer 09/06/2018 Assessment & Plan (06/08/2024 4:46 AM SALES NEGOTIATOR): Follow with Oncology. Continue Zytiga. Assessment & [...] 01/25/2018 Assessment & Plan (03/07/2018 6:54 AM SALES NEGOTIATOR): Hypertension is controlled. Continue current regimen. CHF [...] creatinine. Assessment & Plan (04/08/2021 5:54 AM SALES NEGOTIATOR): Hypertension is controlled. Continue current regimen.Limit nephrotoxins. [...] NSAIDS. Assessment & Plan (03/07/2018 6:55 AM SALES NEGOTIATOR): Hypertension is controlled. Continue current regimen. Limit nephrotoxins. Monitor creatinine. Avoid NSAIDS. Assessment & Plan (11/25/2017 7:09 AM CDT): Limit nephrotoxins. Monitor creatinine. Avoid NSAIDS. Duodenal ulcer 11/25/2017 Assessment & Plan (11/25/2017 10:16 AM CDT): Reviewed GI note . Continue pantoprazole. Avoid NSAIDS. Refer for EGD. PAF (paroxysmal atrial fibrillation) 10/22/2017 Assessment & Plan (03/07/2018 6:54 AM SALES NEGOTIATOR): Continue rate control. Continue anticoagualtion. Anticipate starting [...] NSAIDS. Assessment & Plan (03/07/2018 6:55 AM SALES NEGOTIATOR): Limit nephrotoxins. Monitor creatinine. Avoid NSAIDS. Assessment [...] diet. Assessment & Plan (04/08/2021 10:17 AM SALES NEGOTIATOR): Reviewed HgBA1C elevated at 10.6 on 04/01/21. [...] therapy. Assessment & Plan (03/07/2018 6:57 AM SALES NEGOTIATOR): Continue pravastatin. He had myalgias on other [...] diet. Assessment & Plan (03/02/2017 6:53 AM SALES NEGOTIATOR): Hypertension is controlled. Continue current regimen. Reviewed low sodium diet. Assessment & Plan (01/15/2017 6:44 AM CDT): Reviewed proper diet. Continue statin therapy. Hyperlipidemia 01/12/2012 Assessment & Plan (06/08/2024 4:46 AM SALES NEGOTIATOR): Continue pravastatin. Order lipid panel at next [...] 05/28/2023 Assessment & Plan (03/08/2023 11:40 AM SALES NEGOTIATOR): Agree with cataract surgery. He has 1st [...] 08/30/2017 Assessment & Plan (03/02/2017 10:48 AM SALES NEGOTIATOR): Mood is improved. Monitor off medication. Impotence [...] 200. Assessment & Plan (03/07/2018 6:56 AM SALES NEGOTIATOR): Continue current regimen. Advised annual eye exam.Limit nephrotoxins. Monitor creatinine. Avoid NSAIDS. Assessment & Plan (11/25/2017 10:16 AM CDT): Continue current regimen and add Januvia.Advised annual eye exam. Limit nephrotoxins. Monitor creatinine. Avoid NSAIDS. Assessment & Plan (01/15/2017 6:44 AM CDT): Continue current regimen. Advised annual eye exam. Reviewed proper diet. Continue statin therapy. Encounters Date Type Department Care Team Description 07/24/2024 Telephone [facility] [address] [facility] Floor 5 [place] [address] Gautam Cope MD 07/22/2024 Orders Only [facility] [place] Management [address] [place] [address] Scanning, Provider 07/21/2024 Results Follow-Up [facility] at [address] [phone] Fadi Corrales NP 07/19/2024 7:45 PM CDT - 07/19/2024 11:59 PM CDT Hospital Encounter [facility] [address] [place] [address] Urinary frequency Discharge Disposition: Discharge to home or self care 07/19/2024 2:00 PM CDT Office Visit [facility] at [address] [phone] Clau Childers PA Urinary frequency (Primary Dx); Leukocytosis, unspecified type 07/18/2024 1:45 PM CDT Infusion [facility] [address] [facility] Floor 6 [place] [address] Prostate cancer (HCC) (Primary Dx) 07/18/2024 1:00 PM CDT Office Visit [facility] [address] [place] [address] Floor 5 [place] [address] Gautam Cope MD Prostate cancer (HCC) (Primary Dx) 07/18/2024 12:00 PM CDT Lab [facility] - Lab Collection [address] [place] [address] 5 [place] [address] Prostate cancer (HCC) 07/18/2024 Patient Self-Triage [facility] [address] [place] [address] Mychart, Generic Provider 07/01/2024 Orders Only [facility] [place] [facility] Information Management [address] [place] [address] Scanning, Provider 06/14/2024 6:15 PM SALES NEGOTIATOR Lab [facility] [address] [place] [phone] GBARIELA (acute kidney injury) 06/14/2024 3:00 PM SALES NEGOTIATOR Office Visit [facility] [address] [place] [address] Medicine 5th [place] [address] [place] [phone] Lin Guerrero MD Chronic kidney disease, stage 3b (HCC) (Primary Dx); GABRIELA (acute kidney injury); Hypertension, essential; Secondary hyperparathyroidism of renal origin 06/08/2024 12:00 PM SALES NEGOTIATOR Lab [facility] [address] [place] [phone] 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 chronic kidney disease (HCC); Hypertension, essential; Secondary hyperparathyroidism of renal origin; Stage 3 chronic kidney disease, unspecified whether stage 3a or 3b CKD (HCC); Primary hypertension; Vitamin D deficiency; Type 2 diabetes mellitus with stage 3a chronic kidney disease, with long-term current use of insulin (HCC); Fatigue, unspecified type; GABRIELA (acute kidney injury) 06/08/2024 9:45 AM SALES NEGOTIATOR Office Visit [address] [place] [phone] Kraig Ching MD Hypertension, essential (Primary Dx); Prostate cancer (HCC); Type 2 diabetes mellitus with stage 3b chronic kidney disease, with long-term current use of insulin (HCC); Stage 3b chronic kidney disease (HCC); Hyperlipidemia, unspecified hyperlipidemia type 05/24/2024 Orders Only [facility] [address] [place] [address] [facility] 5th [place] [address] [place] [address] Lin Guerrero MD 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 [...] type; GABRIELA (acute kidney injury) 05/02/[address] [place] [phone] Kraig Ching MD Medical Question/Miscellaneous from Last [...] 01/17/2019 Influenza, Unspecified 01/17/2019(Deferred: Daisy ent Refused) [employer] ([employer]) SARS-CoV-2 Vaccination 06/14/2020, 06/14/2020 Pfizer SARS-CoV-2 [...] pur e alcohol) Occasional glass of wine. [facility] Utilities Answer Date Recorded In the past 12 months has [employer], oil, or water [employer] threatened to shut off services in your [...] often do you attend chur ch or pentecostalism services? Never 04/04/2024 Do you belong to [...] No 04/04/2024 Housing Stability Vital Sign Answer Juacnho e Recorded In the last 12 months, was t here a time when you were not able to pay the mortgage or rent on time? No 04/04/2024 In the past 12 months, how m any times have you moved where you were living? 0 04/04/2024 At any time in the past 12 m [facility], were you homeless or living in a [place] facility (including now)? No 04/04/2024 Personal Safety Answer Date Recorded Have you ever been in or are you currently in a harmful physical or emotional relationship or is someone making you feel afraid or unsafe? Denies 06/09/2023 Sex and Gender Information Value Date Recorded Sex Assigned at Not on file Legal Sex Male 4:46 PM SALES NEGOTIATOR Gender Identity Not on file Sexual Orientation [...] cm (5' 9 ) 06/14/2024 2:58 PM SALES NEGOTIATOR Body Mass Index 29.98 06/14/2024 2:58 PM SALES NEGOTIATOR Plan of Treatment Health Maintenance Due Date [...] General Goal - Patient establishes care with [facility] ACO Care Management On track(2023 1:22 PM SALES NEGOTIATOR) No Clarissa Luna RN Note: Problem: Lack of [facility] communication Interventions: - Provide coordination between [facility] company and patient. - Ensure [facility] has appropriate referral and orders to establish care with patient. - Follow up with patient to ensure initial visit was completed by [facility] and that a [facility] plan has been started. ZAK General Goal - Patient schedules and keeps appointments with all recommended providers ACO Care Management Improving( 1:22 PM SALES NEGOTIATOR) No Clarissa Luna RN Note: Problem: Potential [...] medication regimen. Medical Devices Implanted Type Area Net Web Developer Device Identifier Shelf Expiration Date Model / Serial / Lot [employer] Lens Iol Cna0t0.195 [facility] Autonom Cna0t0.195 - [id number] - [id number] Implanted:Qty: 1 on 06/09/2023 by Higinio Connolly MD at [facility] Lens Right: Eye [employer] [id number] 10/27/2025 CNA0T0.19 5 / [id number] / [employer] Lens Iol Cna0t0.200 [facility] Autonom Cna0t0.200 - [id number] - [id number] Implanted:Qty: 1 on 05/19/2023 by Higinio Connolly MD at [facility] Left: Eye [employer] [id number] 10/06/2025 CNA0T0.20 0 / [id number] / Procedures Procedure Name Priority Date/Time [...] AM CDT EGFR Routine 06/14/2024 3:48 PM SALES NEGOTIATOR GABRIELA (acute kidney injury) RENAL FUNCTION PANEL Routine 06/14/2024 3:48 PM SALES NEGOTIATOR GABRIELA (acute kidney injury) URINALYSIS AND REFLEX TO MICROSCOPIC Routine 06/08/2024 10:47 AM SALES NEGOTIATOR 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 chronic kidney disease (HCC) Hypertension, essential Secondary hyperparathyroidism of renal origin Stage 3 chronic kidney disease, unspecified whether stage 3a or 3b CKD (HCC) Primary hypertension Vitamin D deficiency Type 2 diabetes mellitus with stage 3a chronic kidney disease, with long-term current use of insulin (HCC) Fatigue, unspecified type GABRIELA (acute kidney injury) EGFR Routine 06/08/2024 10:44 AM SALES NEGOTIATOR 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 chronic kidney disease (HCC) Hypertension, essential Secondary hyperparathyroidism of renal origin Stage 3 chronic kidney disease, unspecified whether stage 3a or 3b CKD (HCC) Primary hypertension Vitamin D deficiency Type 2 diabetes mellitus with stage 3a chronic kidney disease, with long-term current use of insulin (HCC) Fatigue, unspecified type GABRIELA (acute kidney injury) DIFFERENTIAL AUTO Routine 06/08/2024 10:44 AM SALES NEGOTIATOR 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 chronic kidney disease [...] RENAL FUNCTION PANEL Routine 06/08/2024 10:44 AM SALES NEGOTIATOR 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 chronic kidney disease [...] D 25 HYDROXY Routine 06/08/2024 10:44 AM SALES NEGOTIATOR 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 chronic kidney disease [...] WITH AUTO DIFFERENTIAL Routine 06/08/2024 10:44 AM SALES NEGOTIATOR 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 chronic kidney disease (HCC) Hypertension, essential Secondary hyperparathyroidism of renal origin Stage 3 chronic kidney disease, unspecified whether stage 3a or 3b CKD (HCC) Primary hypertension Vitamin D deficiency Type 2 diabetes mellitus with stage 3a chronic kidney disease, with long-term current use of insulin (HCC) Fatigue, unspecified type GABRIELA (acute kidney injury) PTH Routine 06/08/2024 10:44 AM SALES NEGOTIATOR 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 chronic kidney disease [...] RATIO, URINE, RANDOM Routine 06/08/2024 10:44 AM SALES NEGOTIATOR 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 chronic kidney disease (HCC) Hypertension, essential Secondary hyperparathyroidism of renal origin Stage 3 chronic kidney disease, unspecified whether stage 3a or 3b CKD (HCC) Primary hypertension Vitamin D deficiency Type 2 diabetes mellitus with stage 3a chronic kidney disease, with long-term current use of insulin (HCC) Fatigue, unspecified type GABRIELA (acute kidney injury) LIPID PANEL Routine 03/08/2023 11:55 AM SALES NEGOTIATOR Hyperlipidemia, unspecified hyperlipidemia type ALBUMIN CREATININE RATIO, [...] Large Ketones, ur, POC Negative Negative Specific [place], POC 1.015 1.003 - 1.030 Blood, ur, POC Hemolyzed, trace(A) Negative pH, ur, POC 6.0 5.0 - 8.0 Protein, ur, POC 30.(A) Negative Urobilinogen, urine, POC 0.2 0.2 - 1.0 mg/dL Nitrite, ur, POC Negative Negative Leukocytes, ur, POC Negative Negative Lot Number [id number] Urine 07/19/2024 2:16 PM CDT Clau [facility] POINT OF CARE TEST ORDER ALAN Final Result * Urine culture Urine, clean voided (07/19/2024 12:00 PM CDT) Report Final Report: No growth Comment:Testing performed by : [facility], [address] [place]., [address] Urine, clean voided 07/19/2024 12:00 PM CDT 07/20/2024 2:19 AM CDT Narrative [facility] - 07/21/2024 7:38 AM CDT Testing performed by [facility] Microbiology Laboratory ([phone]) [facility] MICROBIOLOGY - [facility] AL ORDERABLES Final Result [facility]LINE [id number] [address] Department of Laboratories [place], [place] [id number] * (ABNORMAL) eGFR (07/18/2024 12:07 PM CDT) [...] t [facility] Department [place] [address] * (ABNORMAL) Differential, auto (07/18/2024 12:07 PM CDT) Neutrophil abs 17.55(H) 1.50 - 6.50 K/cumm Comment:Testing performed by : [facility], [address] [place] [phone] Lymphocyte abs 0.96 0.80 - 3.30 K/cumm [facility] Comment:Testing performed by : [facility], [address] [place], [place] [phone] Monocyte abs 1.48(H) 0.20 - 0.80 K/cumm [facility] Comment:Testing performed by : [facility], [address] [place], [place] [phone] Eosinophil abs 0.06 0.00 - 0.50 K/cumm [facility] Comment:Testing performed by : [facility], [address] [place] [phone] Basophil abs 0.03 0.00 - 0.10 K/cumm [facility] Comment:Testing performed by : [facility], [address] [place] [phone] Neutrophil pct 87.4 % [facility] Comment: Interpretive Data Percent cell count reference ranges are not reported, since discordance with absolute values may lead to misinterpretation of CBC data. Current Interpretive Data was last revised on 2017. Testing performed by: [facility], [address] [place] [phone] Lymphocyte pct 4.8 % [facility] Comment: Interpretive Data Percent cell count reference ranges are not reported, since discordance with absolute values may lead to misinterpretation of CBC data. Current Interpretive Data was last revised on 2017. Testing performed by: [facility], [address] [place] [phone] Monocyte pct 7.4 % [facility] Comment: Interpretive Data Percent cell count reference ranges are not reported, since discordance with absolute values may lead to misinterpretation of CBC data. Current Interpretive Data was last revised on 2017. Testing performed by: [facility], [address] [place] [phone] Eosinophil pct 0.3 % [facility] Comment: Interpretive Data Percent cell count reference ranges are not reported, since discordance with absolute values may lead to misinterpretation of CBC data. Current Interpretive Data was last revised on 2017. Testing performed by: [facility], [address] [place] [address] Basophil pct 0.2 % [facility] Comment: Interpretive Data Percent cell count reference ranges are not reported, since discordance with absolute values may lead to misinterpretation of CBC data. Current Interpretive Data was last revised on 2017. Testing performed by: [facility], [address] [place] [address] Blood 07/18/2024 12:0 7 PM CDT 07/18/2024 12:22 PM CDT us Gautam Cope MD LAB BLOOD ORDERABLES Final Resul t [facility] Department of Laboratories [place], [place] [id number] * (ABNORMAL) CBC with auto differential (07/18/2024 12:07 PM CDT) WBC 20.09(H) 3.80 - 9.90 K/cumm Comment:Testing performed by : [facility], [address] [place] [address] Hgb 12.1(L) 13.0 - 17.5 g/dL [facility] Comment:Testing performed by : [facility], [address] [place] [address] Hct 38.2(L) 38.9 - 50.3 % [facility] Comment:Testing performed by : [facility], [address] [place] [address] Plt 451(H) 150 - 400 K/cumm [facility] Comment:Testing performed by : [facility], [address] [place] [address] MPV 7.7 6.8 - 10.4 fL [facility] Comment:Testing performed by : [facility], [address] [place], [place] [phone] RBC 4.46 4.30 - 5.80 M/cumm [facility] Comment:Testing performed by : [facility], [address] [place], [place] [phone] MCV 85.5 81.3 - 96.4 fL [facility] Comment:Testing performed by : [facility], [address] [place], [place] [phone] MCH 27.1 27.1 - 33.3 pg [facility] Comment:Testing performed by : [facility], [address] [place] [address] MCHC 31.7(L) 32.3 - 35.7 g/dL [facility] Comment:Testing performed by : [facility], [address] [place] [address] RDW CV 14.9 11.1 - 14.9 % [facility] Comment:Testing performed by : [facility], [address] [place] [address] NRBC abs 0.00 0.00 - 0.01 K/cumm [facility] Comment:Testing performed by : [facility], [address] [place] [address] Blood 07/18/2024 12:0 7 PM CDT 07/18/2024 12:22 PM CDT us Gautam Cope MD LAB BLOOD ORDERABLES Final Resul t [facility] Department of Laboratories [place] [id number] * PSA diagnostic (07/18/2024 12:07 PM CDT) [facility] PSA-Total <0.02 <=6.20 ng/mL Comment: Interpretive Data [...] Final Resul t Performing Organization Address [facility] de Phone Number [facility] Department [place] [address] * Lactate dehydrogenase (LD) (07/18/2024 12:07 PM CDT) [facility] Lactate dehydrogenase (LDH) 216 100 - 250 Units/L Blood 07/18/2024 12:0 7 PM CDT 07/18/2024 12:25 PM CDT Gautam Cope MD LAB BLOOD ORDERABLES Final Resul t Performing Organization Address [facility] de Phone Number [facility] [place] [address] * (ABNORMAL) Hemoglobin A1c (07/18/2024 12:07 PM CDT) [facility] Hgb A1C 8.0(H) 4.0 - 5.6 % Estimated Average Glucose 183 mg/dL [facility] Comment: The ADA recommends [...] t [facility] Department [place] [address] * (ABNORMAL) Comprehensive metabolic panel (07/18/2024 12:07 PM CDT) Sodium 142 135 - 145 mmol/L Potassium, pl 4.6 3.3 - 4.9 mmol/L [facility] Chloride 106 97 - 110 mmol/L [facility] CO2 24 22 - 32 mmol/L [facility] Anion gap 12 2 - 15 mmol/L [facility] BUN 52(H) 6 - 25 mg/dL [facility] Creatinine 2.66(H) 0.80 - 1.30 mg/dL [facility] Glucose 164 70 - 199 mg/dL [facility] [...] Calcium 9.0 8.5 - 10.3 mg/dL [facility] Bilirubin, total 0.5 0.1 - 1.2 mg/dL [facility] Protein, pl 6.7 6.5 - 8.5 g/dL [facility] Albumin 4.0 3.5 - 5.0 g/dL [facility] Alk phos 126 40 - 130 Units/L [facility] ALT 10 7 - 55 Units/L [facility] AST 13 10 - 50 Units/L [facility] Blood 07/18/2024 12:0 7 PM CDT 07/18/2024 12:25 PM CDT us Gautam Cope MD LAB BLOOD ORDERABLES Final Resul t Performing Organization Address [facility] Co de Phone Number [facility] Department [place] [address] * SCAN - RADIOLOGY/IMAGING (07/01/2024 9:44 AM CDT) Anatomical Region Laterality Modality Other us Provider Scanning Final Result * (ABNORMAL) eGFR (06/14/2024 3:48 PM SALES NEGOTIATOR) eGFR 26(L) >=60 mL/min/1. 73 m2 Comment: [...] last reviewed 2021. Blood 06/14/2024 3:48 PM SALES NEGOTIATOR 06/14/2024 4:07 PM SALES NEGOTIATOR us Lin Guerrero MD LAB BLOOD ORDERABLES Final Resul t Performing Organization Address [facility] Co de Phone Number [facility] Department [place] [address] * (ABNORMAL) Renal function panel (06/14/2024 3:48 PM SALES NEGOTIATOR) Pathologist [facility] Sodium 143 135 - 145 mmol/L Potassium, pl 5.0(H) 3.3 - 4.9 mmol/L [facility] Chloride 105 97 - 110 mmol/L [facility] CO2 28 22 - 32 mmol/L [facility] Anion gap 10 2 - 15 mmol/L [facility] BUN 48(H) 6 - 25 mg/dL [facility] Creatinine 2.42(H) 0.80 - 1.30 mg/dL [facility] Glucose 152 70 - 199 mg/dL [facility] Calcium 8.7 8.5 - 10.3 mg/dL [facility] Phosphorus, pl 3.1 2.3 - 4.5 mg/dL [facility] Albumin 3.9 3.5 - 5.0 g/dL [facility] Blood 06/14/2024 3:48 PM SALES NEGOTIATOR 06/14/2024 4:03 PM SALES NEGOTIATOR us Lin Guerrero MD LAB BLOOD ORDERABLES Final Resul t [facility] Department [place] [address] * Urinalysis reflex to microscopic (06/08/2024 10:47 AM SALES NEGOTIATOR) Pathologist [facility] Color, ur Straw Yellow Clarity, ur Clear Clear [facility] Specific gravity, ur 1.012 1.003 - 1.030 [facility] pH, urine 6.0 [facility] Comment: Interpretive Data U rine pH is affected by diet, medications, systemic acid-base disturbances, and renal tubular function. pH may affect urinary stone formation. For example, urine pH below 6.0 may help reduce the tendency for calcium phosphate stones and pH greater than 6.0 may reduce the tendency for uric acid stone formation. Source: [facility] Current Interpretive Data was last revised on 2017 Protein, ur ql Trace Negative [facility] Glucose, ur ql Negative Negative [facility] Ketones, ur Negative Negative [facility] Bilirubin, ur Negative Negative [facility] Blood, ur Negative Negative [facility] Urobilinogen, ur <2.0 <2.0 mg/dL [facility] Nitrite, ur Negative Negative [facility] Leukocyte esterase, ur Negative Negative [facility] UA reflex comment Reflex conditions for microscopic UA not met. [facility] Urine 06/08/2024 10:4 7 AM SALES NEGOTIATOR 06/08/2024 11:41 AM SALES NEGOTIATOR us Lin Guerrero MD LAB URINE ORDERABLES Final Resul t [facility] Department [place] [address] * (ABNORMAL) eGFR (06/08/2024 10:44 AM SALES NEGOTIATOR) eGFR 22(L) >=60 mL/min/1. 73 m2 Comment: [...] reviewed 2021. Blood 06/08/2024 10:4 4 AM SALES NEGOTIATOR 06/08/2024 11:23 AM SALES NEGOTIATOR us Lin Guerrero MD LAB BLOOD ORDERABLES Final Resul t [facility] Department [place] [address] * (ABNORMAL) Differential, auto (06/08/2024 10:44 AM SALES NEGOTIATOR) Neutrophil abs 7.8(H) 1.5 - 6.5 K/cumm Imm gran abs 0.1 0.0 - 0.1 K/cumm [facility] Lymphocyte abs 1.9 0.8 - 3.3 K/cumm [facility] Monocyte abs 1.0(H) 0.2 - 0.8 K/cumm [facility] Eosinophil abs 0.1 0.0 - 0.5 K/cumm [facility] Basophil abs 0.0 0.0 - 0.1 K/cumm [facility] Neutrophil pct 71.1 % [facility] Comment: Interpretive Data Percent cell count reference ranges are not reported, since discordance with absolute values may lead to misinterpretation of CBC data. Current Interpretive Data was last revised on 2017. Imm gran pct 0.8 % [facility] Comment: Interpretive Data Percent cell count reference ranges are not reported, since discordance with absolute values may lead to misinterpretation of CBC data. Current Interpretive Data was last revised on 2017. Lymphocyte pct 17.1 % [facility] Comment: Interpretive Data Percent cell count reference ranges are not reported, since discordance with absolute values may lead to misinterpretation of CBC data. Current Interpretive Data was last revised on 2017. Monocyte pct 9.3 % [facility] Comment: Interpretive Data Percent cell count reference ranges are not reported, since discordance with absolute values may lead to misinterpretation of CBC data. Current Interpretive Data was last revised on 2017. Eosinophil pct 1.3 % [facility] Comment: Interpretive Data Percent cell count reference ranges are not reported, since discordance with absolute values may lead to misinterpretation of CBC data. Current Interpretive Data was last revised on 2017. Basophil pct 0.4 % [facility] Comment: Interpretive Data Percent cell count reference ranges are not reported, since discordance with absolute values may lead to misinterpretation of CBC data. Current Interpretive Data was last revised on 2017. Blood 06/08/2024 10:4 4 AM SALES NEGOTIATOR 06/08/2024 11:23 AM SALES NEGOTIATOR us Lin Guerrero MD LAB BLOOD ORDERABLES Final Resul t [facility] Department [place] [address] * (ABNORMAL) CBC with auto differential (06/08/2024 10:44 AM SALES NEGOTIATOR) WBC 11.0(H) 3.8 - 9.9 K/cumm Hgb 12.0(L) 13.0 - 17.5 g/dL [facility] Hct 36.9(L) 38.9 - 50.3 % [facility] Plt 357 150 - 400 K/cumm [facility] MPV 9.8 9.1 - 12.3 fL [facility] RBC 4.27(L) 4.30 - 5.80 M/cumm [facility] MCV 86.4 81.3 - 96.4 fL [facility] MCH 28.1 27.1 - 33.3 pg [facility] MCHC 32.5 32.3 - 35.7 g/dL [facility] RDW CV 14.1 11.1 - 14.9 % [facility] RDW SD 44.2 35.7 - 48.1 fL [facility] NRBC abs 0.00 0.00 - 0.01 K/cumm [facility] Blood 06/08/2024 10:4 4 AM SALES NEGOTIATOR 06/08/2024 11:23 AM SALES NEGOTIATOR Lin Guerrero MD LAB BLOOD ORDERABLES Final Resul t Performing Organization Address [facility] Phone Number [facility] [place] [address] * (ABNORMAL) Protein / creatinine ratio, urine, random (06/08/2024 10:44 AM SALES NEGOTIATOR) Pathologist [facility] Protein, ur, quant 21.3 mg/dL Comment: Interpretive Data No reference range established. Current interpretive data was last revised 2018. Creatinine Ur 52.2 mg/dL [facility] Comment: Interpretive Data No reference range established. Current interpretive data was last revised 2018. Protein/creatinin e ratio 408.0(H) 0.0 - 180.0 mg/g CR [facility] Urine 06/08/2024 10:4 4 AM SALES NEGOTIATOR 06/08/2024 11:23 AM SALES NEGOTIATOR Lin Guerrero MD LAB URINE ORDERABLES Final Resul t Performing Organization Address [facility] Phone Number [facility] Department [place] [address] * Vitamin D 25 hydroxy (06/08/2024 10:44 AM SALES NEGOTIATOR) Pathologist [facility] Vitamin D 25-OH 42 30 - 80 ng/mL Blood 06/08/2024 10:4 4 AM SALES NEGOTIATOR 06/08/2024 11:23 AM SALES NEGOTIATOR Lin Guerrero MD LAB BLOOD ORDERABLES Final Resul t Performing Organization Address [facility] Phone Number [facility] Department [place] [address] * (ABNORMAL) PTH (06/08/2024 10:44 AM SALES NEGOTIATOR) PTH 78(H) 15 - 65 pg/mL Blood 06/08/2024 10:4 4 AM SALES NEGOTIATOR 06/08/2024 11:23 AM SALES NEGOTIATOR Lin Guerrero MD LAB BLOOD ORDERABLES Final Resul t [facility] Department [place] [address] * (ABNORMAL) Renal function panel (06/08/2024 10:44 AM SALES NEGOTIATOR) Sodium 142 135 - 145 mmol/L Potassium, pl 4.8 3.3 - 4.9 mmol/L [facility] Chloride 107 97 - 110 mmol/L [facility] CO2 27 22 - 32 mmol/L [facility] Anion gap 8 2 - 15 mmol/L [facility] BUN 60(H) 6 - 25 mg/dL [facility] Creatinine 2.72(H) 0.80 - 1.30 mg/dL [facility] Glucose 94 70 - 199 mg/dL [facility] [...] Calcium 9.0 8.5 - 10.3 mg/dL [facility] Phosphorus, pl 3.5 2.3 - 4.5 mg/dL [facility] Albumin 3.8 3.5 - 5.0 g/dL [facility] Blood 06/08/2024 10:4 4 AM SALES NEGOTIATOR 06/08/2024 11:23 AM SALES NEGOTIATOR Lin Guerrero MD LAB BLOOD ORDERABLES Final Resul t [facility] Department [place] [address] * (ABNORMAL) Lipid panel (03/08/2023 11:55 AM SALES NEGOTIATOR) Cholesterol 193 30 - 199 mg/dL [facility] Comment: Interpretive Data Ages < or [...] on 2017. Triglycerides 250(H) <=149 mg/dL [facility] Comment: Interpretive Data Ages < or [...] on 2017. HDL 36(L) >=40 mg/dL [facility] Comment: Interpretive Data Ages < or [...] on 2017. LDL, calculated 107 <=129 mg/dL [facility] Comment: Interpretive Data Ages < or [...] revised on 2017. Non-HDL Cholesterol 157 mg/dL [facility] Comment: Interpretive Data Ages < or [...] last revised on 2017. Chol/HDL ratio 5 [facility] Blood 03/08/2023 11:5 5 AM SALES NEGOTIATOR 03/08/2023 3:48 PM SALES NEGOTIATOR Kraig Ching MD LAB BLOOD ORDERABLES Final Re sult [facility] Department [place] [address] * (ABNORMAL) Albumin Creatinine Ratio, Urine (01/01/2023 10:40 AM CDT) Albumin Ur 227.3 mg/L [facility] Comment: Interpretive Data No reference range established. Current interpretive data was last revised 2018. Creatinine Ur 66.5 mg/dL [facility] Comment: Interpretive Data No reference range established. Current interpretive data was last revised 2018. Albumin Creatinine Ratio, Ur 342(H) 1 - 29 mg/g [facility] Urine 01/01/2023 10:4 0 AM CDT 01/01/2023 10:45 AM CDT us Kraig Ching MD LAB URINE ORDERABLES Final Re sult [facility] Department [place] [address] * DIABETES EYE EXAM (06/29/2018) Diabetic Eye Exam Normal us Historical Provider HEALTH MAINTENANCE Final Result from Last 3 Months or Most Recently Relevant to Health Maintenance Insurance [facility] MEDICARE [facility] MEDICARE [facility] MEDICARE Advance Directives For more information, please contact: [phone] * Full Code (Latest Code Status on File) Date Activated Date Inactivated Comments 12/16/2017 2:44 PM 12/16/2017 7:18 PM Care Teams Textile Technical Officer Relationship Specialty Start Date End Date Kraig Ching MD [address] [facility] [address] [place] [address] PCP - General 07/10/16 Gautam Cope MD [address] [facility] [address] [place] [address] Medical Oncologist/Test Director Medical Oncology 08/18/18 Tramaine Roe MD [address] [facility] [address] [place] [address] Referring Physician Urology 08/18/18 Sukhwinder Uribe MD [address] [facility] [address] [place] [address] Consulting Physician Urology 08/18/18 Shay Guillermo MD [address] [facility] [address] [place] [address] Referring Physician Urology 08/18/18 Marsha Landis, RN Registered Nurse 11/17/18
--- OUTSIDE RECORDS SUMMARY | 2024-07-29 09:59 | XMS_ITS | Encounter Summary ---
Author Organization [facility] Healthcare Address [address] [place] [address] Care Team Providers Care Cardiology Rn Name Role Phone Kraig Ching MD Primary Care Provider [phone] Gautam Cope MD Unavailable Tramaine Roe MD Unavailable [phone] Sukhwinder Uribe MD Unavailable [phone] Shay Guillermo MD Unavailable [phone] Marsha Landis RN Unavailable Unavailab le Encounter Details Date Type Department Care Team (Late st Contact Info) Description 07/21/2024 Results Follow-Up [facility] Medical [facility] Convenient Care at [address] [address] Fadi Corrales NP [address] [place] [address] [address] [place] [address] Social History Tobacco Use Types [...] In the past 12 months has e [employer], gas, oil, or water company threatened to [...] often do you attend chur ch or gnosticism services? Never 04/04/2024 Do you belong to any clubs o r organizations such as scientologist groups, unions, fraternal or athletic groups, or [...] time in the past 12 m [facility], were you homeless or living [...] on file Legal Sex Male 4:46 PM INTAKE CLINICIAN Gender Identity Not on file Sexual Orientation Not on file documented as of this encounter Miscellaneous Notes * Result Encounter Note - Betsy Rodríguez MA - 07/21/2024 5:13 PM CDT Viewed via [employer] documented in this encounter Plan of Treatment Not on file documented as of this encounter Goals Goal Patient Goal Type Associated Problems Recent Progress Patient-Stated? Author ZAK General Goal - Patient establishes care with [facility] ACO Care Management On track(2023 1:22 PM INTAKE CLINICIAN) No Clarissa Luna RN Note: Problem: Lack of [facility] communication Interventions: - Provide coordination between [facility] company and patient. - Ensure [facility] has appropriate referral and orders to establish care with patient. - Follow up with patient to ensure initial visit was completed by [facility] and that a [facility] plan has been started. ZAK General Goal - Patient schedules and keeps appointments with all recommended providers ACO Care Management Improving( 1:22 PM INTAKE CLINICIAN) No Clarissa Luna RN Note: Problem: Potential [...] on filedocumented in this encounter Care Teams Cardiology Rn Relationship Specialty Start Date End Date Kraig Ching MD [address] [facility] [address] [place] [address] PCP - General 07/10/16 Gautam Cope MD [address] [facility] [address] [place] [address] Medical Oncologist/Bend Sorter Medical Oncology 08/18/18 Tramaine Roe MD [address] [facility] [address] [place] [address] Referring Physician Urology 08/18/18 Sukhwinder Uribe MD [address] [facility] [address] [place] [address] Consulting Physician Urology 08/18/18 Shay Guillermo MD [address] [facility] [address] [place] [address] Referring Physician Urology 08/18/18 Marsha Landis, RN Registered Nurse 11/17/18 documented as of this encounter
--- OUTSIDE RECORDS SUMMARY | 2024-07-29 09:59 | XMS_ITS | Clinical Summary ---
Author Organization [facility] Address [address] [place] [address] Care Team Providers Care Senior Estimator Name Role Phone Unavailable Primary Care Provider [...]
--- OUTSIDE RECORDS SUMMARY | 2024-07-29 09:59 | XMS_ITS ---
Author Organization [facility] Address [address] [place] [address] Care Team Providers Care Continuum Of Care Manager Name Role Phone Kraig Ching MD Primary Care Provider Gautam Cope MD Unavailable Tramaine Roe MD Unavailable [phone] Sukhwinder Uribe MD Unavailable [phone] Shay Guillermo MD Unavailable [phone] Marsha Landis RN Unavailable Unavailab Active Problems Problem Noted Date Diagnosed Date Statin myopathy 06/08/2024 Essential hypertension 05/30/2024 Type 2 diabetes mellitus wit h stage 3b chronic kidney disease, with long-term current use of insulin 05/30/2024 Assessment & Plan (06/08/2024 4:46 AM LIFE SKILLS TEACHER): Continue current regimen.Limit nephrotoxins.Reviewed creatinine. Avoid NSAIDS. [...] 03/08/2023 Assessment & Plan (06/08/2024 4:46 AM LIFE SKILLS TEACHER): Hypertension is controlled. Continue current regimen. Assessment & Plan (10/05/2023 12:54 PM CDT): Hypertension is controlled. Decrease carvedilol to 12.5 mg. Assessment & Plan (03/08/2023 7:11 AM LIFE SKILLS TEACHER): Hypertension is controlled. Continue current regimen. 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 Avoid NSAIDS. Assessment & Plan (10/05/2023 5:50 AM CDT): Continue current regimen.Limit nephrotoxins.Reviewed creatinine. Avoid NSAIDS. Assessment & Plan (03/08/2023 7:12 AM LIFE SKILLS TEACHER): Continue current regimen.Limit nephrotoxins.Reviewed creatinine. Avoid NSAIDS. CKD (chronic kidney disease) 03/08/2022 Assessment & Plan (06/08/2024 4:45 AM LIFE SKILLS TEACHER): Limit nephrotoxins. Monitor creatinine. Avoid NSAIDS.Follow with Nephrology. 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 chronic kidney disease 2021 Gastroesophageal reflux disease 04/08/2021 Assessment & Plan (03/08/2023 11:17 AM LIFE SKILLS TEACHER): Reviewed dietary modifications. Continue PPI. Assessment & Plan (08/18/2022 6:36 AM CDT): Reviewed dietary modifications. Continue PPI. Assessment & Plan (02/12/2022 6:03 AM CDT): Reviewed dietary modifications. Continue PPI. Assessment & Plan (04/08/2021 5:55 AM LIFE SKILLS TEACHER): Reviewed dietary modifications. Continue PPI. 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 Continue home PT exercises. Advised using a walker. Assessment & Plan (08/18/2022 11:47 AM CDT): Continue oxycodone. Continue home PT exercises. Advised using a walker. Assessment & Plan (02/12/2022 11:41 AM CDT): Continue oxycodone. Continue home PT exercises. A prescription for a walker. Assessment & Plan (04/08/2021 5:55 AM LIFE SKILLS TEACHER): Continue oxycodone. Continue home PT exercises. Continue walker. Assessment & Plan (12/26/2020 10:48 AM CDT): Continue oxycodone. Script for walker. Assessment & Plan (09/26/2020 11:29 AM CDT): Continue ROM exercises and follow with Pain Management. Refill oxycodone as needed. Prostate cancer 09/06/2018 Assessment & Plan (06/08/2024 4:46 AM LIFE SKILLS TEACHER): Follow with Oncology. Continue Zytiga. Assessment & [...] 01/25/2018 Assessment & Plan (03/07/2018 6:54 AM LIFE SKILLS TEACHER): Hypertension is controlled. Continue current regimen. CHF [...] creatinine. Assessment & Plan (04/08/2021 5:54 AM LIFE SKILLS TEACHER): Hypertension is controlled. Continue current regimen.Limit nephrotoxins. [...] NSAIDS. Assessment & Plan (03/07/2018 6:55 AM LIFE SKILLS TEACHER): Hypertension is controlled. Continue current regimen. Limit nephrotoxins. Monitor creatinine. Avoid NSAIDS. Assessment & Plan (11/25/2017 7:09 AM CDT): Limit nephrotoxins. Monitor creatinine. Avoid NSAIDS. Duodenal ulcer 11/25/2017 Assessment & Plan (11/25/2017 10:16 AM CDT): Reviewed GI note . Continue pantoprazole. Avoid NSAIDS. Refer for EGD. PAF (paroxysmal atrial fibrillation) 10/22/2017 Assessment & Plan (03/07/2018 6:54 AM LIFE SKILLS TEACHER): Continue rate control. Continue anticoagualtion. Anticipate starting [...] NSAIDS. Assessment & Plan (03/07/2018 6:55 AM LIFE SKILLS TEACHER): Limit nephrotoxins. Monitor creatinine. Avoid NSAIDS. Assessment [...] diet. Assessment & Plan (04/08/2021 10:17 AM LIFE SKILLS TEACHER): Reviewed HgBA1C elevated at 10.6 on 04/01/21. [...] therapy. Assessment & Plan (03/07/2018 6:57 AM LIFE SKILLS TEACHER): Continue pravastatin. He had myalgias on other [...] diet. Assessment & Plan (03/02/2017 6:53 AM LIFE SKILLS TEACHER): Hypertension is controlled. Continue current regimen. Reviewed low sodium diet. Assessment & Plan (01/15/2017 6:44 AM CDT): Reviewed proper diet. Continue statin therapy. Hyperlipidemia 01/12/2012 Assessment & Plan (06/08/2024 4:46 AM LIFE SKILLS TEACHER): Continue pravastatin. Order lipid panel at next [...] 05/28/2023 Assessment & Plan (03/08/2023 11:40 AM LIFE SKILLS TEACHER): Agree with cataract surgery. He has 1st [...] 08/30/2017 Assessment & Plan (03/02/2017 10:48 AM LIFE SKILLS TEACHER): Mood is improved. Monitor off medication. Impotence [...] 200. Assessment & Plan (03/07/2018 6:56 AM LIFE SKILLS TEACHER): Continue current regimen. Advised annual eye exam.Limit nephrotoxins. Monitor creatinine. Avoid NSAIDS. Assessment & Plan (11/25/2017 10:16 AM CDT): Continue current regimen and add Januvia.Advised annual eye exam. Limit nephrotoxins. Monitor creatinine. Avoid NSAIDS. Assessment & Plan (01/15/2017 6:44 AM CDT): Continue current regimen. Advised annual eye exam. Reviewed proper diet. Continue statin therapy.
--- OUTSIDE RECORDS SUMMARY | 2024-07-29 09:59 | XMS_ITS | Encounter Summary ---
Author Organization [facility] Address [address] [place] [address] Phone Care Team Providers Care Manufacturing Intern Name Role Phone Kraig Ching MD Primary Care Provider [phone] Gautam Cope MD Unavailable Tramaine Roe MD Unavailable Sukhwinder Uribe MD Unavailable [phone] Shay Guillermo MD Unavailable [phone] Marsha Landis RN Unavailable Unavailab Ilene Kaur RN Unavailable [phone] Clarissa Luna RN Unavailable [phone] Encounter Details Date Type Department Care Team (Late st Contact Info) Description 12/06/2018 Telephone [facility] [address] [facility] Advanced Medicine 7th [place] [address] Salena Bryan NP [address] [place] [address] Social History Tobacco Use Types Packs/Day Years [...] file Legal Sex Male 4:46 PM DIRECTOR PRINT Gender Identity Not on file Sexual Orientation Not on file documented as of this encounter Plan of Treatment Not on file documented as of this encounter Visit Diagnoses Not on filedocumented in this encounter Care Teams Manufacturing Intern Relationship Specialty Start Date End Date Kraig Ching MD [address] [place] [address] PCP - General 07/10/16 Gautam Cope MD [address] [place] [address] Medical Oncologist/Community Relations Officer Medical Oncology 08/18/18 Tramaine Roe MD [address] [place] [address] Referring Physician Urology 08/18/18 Sukhwinder Uribe MD [address] [place] [address] Consulting Physician Urology 08/18/18 Shay Guillermo MD [address] [place] [address] Referring Physician Urology 08/18/18 Marsha Landis, RN Registered Nurse 11/17/18 Ilene Fragoso RN [address] [place] [address] Sales Representative Trainee 12/23/18 11/01/19 Clarissa Luna RN [address] [place] [address] Sales Representative Trainee 04/04/24 04/26/24 documented as of this encounter
--- OUTSIDE RECORDS SUMMARY | 2024-07-29 09:59 | XMS_ITS | Referral Summary ---
Author Organization [facility] Address [address] [place] [address] Care Team Providers Care Store Standards Associate Name Role Phone Kraig Ching MD Primary Care Provider [phone] Gautam Cope MD Unavailable Tramaine Roe MD Unavailable [phone] Sukhwinder Uribe MD Unavailable Shay Guillermo MD Unavailable Marsha Landis RN Unavailable Unavailab le Encounters Date Type Department Care Team Description 07/24/2024 Telephone [facility] Oncology [facility] [address] [place] [address] Gautam Cope MD 07/22/2024 Orders Only [facility] Health Information Management [address] [place] [address] Scanning, Provider 07/21/2024 Results Follow-Up [facility] at [address] [phone] Fadi Corrales NP 07/19/2024 7:45 PM CDT - 07/19/2024 11:59 PM CDT Hospital Encounter [address] [address] Urinary frequency Discharge Disposition: Discharge to home or self care 07/19/2024 2:00 PM CDT Office Visit [facility] [address] [phone] Clau Childers PA Urinary frequency (Primary Dx); Leukocytosis, unspecified type 07/18/2024 Patient Self-Triage [facility] [address] [place] [address] Mychart, Generic Provider 07/18/2024 1:00 PM CDT Office Visit [facility] Oncology [address] [facility] Floor [address] [place] [phone] Gautam Cope MD Prostate cancer (HCC) (Primary Dx) 07/18/2024 12:00 PM CDT Lab [facility] - Lab Collection [address] [facility] Floor [address] [place] [address] Prostate cancer (HCC) 07/18/2024 1:45 PM CDT Infusion [facility] - Infusion [address] [facility] Floor [address] [place] [address] Prostate cancer (HCC) (Primary Dx) 07/01/2024 Orders Only [facility] Health Information Management [address] [place] [address] Scanning, Provider 06/14/2024 6:15 PM TESTER ELECTRONIC SCALE Lab [facility] [address] [place] [phone] GABRIELA (acute kidney injury) 06/14/2024 3:00 PM TESTER ELECTRONIC SCALE Office Visit [facility] Nephrology [address] [facility] 5th [place] [address] [place] [phone] Lin Guerrero MD Chronic kidney disease, stage 3b (HCC) (Primary Dx); GABRIELA (acute kidney injury); Hypertension, essential; Secondary hyperparathyroidism of renal origin 06/08/2024 12:00 PM TESTER ELECTRONIC SCALE Lab [facility] ([facility]) [address] [place] [phone] 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 chronic kidney disease (HCC); Hypertension, essential; Secondary hyperparathyroidism of renal origin; Stage 3 chronic kidney disease, unspecified whether stage 3a or 3b CKD (HCC); Primary hypertension; Vitamin D deficiency; Type 2 diabetes mellitus with stage 3a chronic kidney disease, with long-term current use of insulin (HCC); Fatigue, unspecified type; GABRIELA (acute kidney injury) 06/08/2024 9:45 AM TESTER ELECTRONIC SCALE Office Visit [facility] [address] [facility] [address] [place] [phone] Kraig Ching MD Hypertension, essential (Primary Dx); Prostate cancer (HCC); Type 2 diabetes mellitus with stage 3b chronic kidney disease, with long-term current use of insulin (HCC); Stage 3b chronic kidney disease (HCC); Hyperlipidemia, unspecified hyperlipidemia type 05/24/2024 Orders Only [facility] Nephrology [facility] 5th [place] [address] [place] [phone] Lin Guerrero MD 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 [...] type; GABRIELA (acute kidney injury) 05/02/2024 Telephone [facility] [address] [facility] [address] [place] [phone] Kraig Ching MD Medical Question/Miscellaneous from [...] 05/30/2024 Assessment & Plan (06/08/2024 4:46 AM TESTER ELECTRONIC SCALE): Continue current regimen.Limit nephrotoxins.Reviewed creatinine. Avoid NSAIDS. [...] 03/08/2023 Assessment & Plan (06/08/2024 4:46 AM TESTER ELECTRONIC SCALE): Hypertension is controlled. Continue current regimen. Assessment & Plan (10/05/2023 12:54 PM CDT): Hypertension is controlled. Decrease carvedilol to 12.5 mg. Assessment & Plan (03/08/2023 7:11 AM TESTER ELECTRONIC SCALE): Hypertension is controlled. Continue current regimen. 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 Avoid NSAIDS. Assessment & Plan (10/05/2023 5:50 AM CDT): Continue current regimen.Limit nephrotoxins.Reviewed creatinine. Avoid NSAIDS. Assessment & Plan (03/08/2023 7:12 AM TESTER ELECTRONIC SCALE): Continue current regimen.Limit nephrotoxins.Reviewed creatinine. Avoid NSAIDS. CKD (chronic kidney disease) 03/08/2022 Assessment & Plan (06/08/2024 4:45 AM TESTER ELECTRONIC SCALE): Limit nephrotoxins. Monitor creatinine. Avoid NSAIDS.Follow with Nephrology. 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 chronic kidney disease 2021 Gastroesophageal reflux disease 04/08/2021 Assessment & Plan (03/08/2023 11:17 AM TESTER ELECTRONIC SCALE): Reviewed dietary modifications. Continue PPI. Assessment & Plan (08/18/2022 6:36 AM CDT): Reviewed dietary modifications. Continue PPI. Assessment & Plan (02/12/2022 6:03 AM CDT): Reviewed dietary modifications. Continue PPI. Assessment & Plan (04/08/2021 5:55 AM TESTER ELECTRONIC SCALE): Reviewed dietary modifications. Continue PPI. 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 Continue home PT exercises. Advised using a walker. Assessment & Plan (08/18/2022 11:47 AM CDT): Continue oxycodone. Continue home PT exercises. Advised using a walker. Assessment & Plan (02/12/2022 11:41 AM CDT): Continue oxycodone. Continue home PT exercises. A prescription for a walker. Assessment & Plan (04/08/2021 5:55 AM TESTER ELECTRONIC SCALE): Continue oxycodone. Continue home PT exercises. Continue walker. Assessment & Plan (12/26/2020 10:48 AM CDT): Continue oxycodone. Script for walker. Assessment & Plan (09/26/2020 11:29 AM CDT): Continue ROM exercises and follow with Pain Management. Refill oxycodone as needed. Prostate cancer 09/06/2018 Assessment & Plan (06/08/2024 4:46 AM TESTER ELECTRONIC SCALE): Follow with Oncology. Continue Zytiga. Assessment & [...] 01/25/2018 Assessment & Plan (03/07/2018 6:54 AM TESTER ELECTRONIC SCALE): Hypertension is controlled. Continue current regimen. CHF [...] creatinine. Assessment & Plan (04/08/2021 5:54 AM TESTER ELECTRONIC SCALE): Hypertension is controlled. Continue current regimen.Limit nephrotoxins. [...] NSAIDS. Assessment & Plan (03/07/2018 6:55 AM TESTER ELECTRONIC SCALE): Hypertension is controlled. Continue current regimen. Limit nephrotoxins. Monitor creatinine. Avoid NSAIDS. Assessment & Plan (11/25/2017 7:09 AM CDT): Limit nephrotoxins. Monitor creatinine. Avoid NSAIDS. Duodenal ulcer 11/25/2017 Assessment & Plan (11/25/2017 10:16 AM CDT): Reviewed GI note . Continue pantoprazole. Avoid NSAIDS. Refer for EGD. PAF (paroxysmal atrial fibrillation) 10/22/2017 Assessment & Plan (03/07/2018 6:54 AM TESTER ELECTRONIC SCALE): Continue rate control. Continue anticoagualtion. Anticipate starting [...] NSAIDS. Assessment & Plan (03/07/2018 6:55 AM TESTER ELECTRONIC SCALE): Limit nephrotoxins. Monitor creatinine. Avoid NSAIDS. Assessment [...] diet. Assessment & Plan (04/08/2021 10:17 AM TESTER ELECTRONIC SCALE): Reviewed HgBA1C elevated at 10.6 on 04/01/21. [...] therapy. Assessment & Plan (03/07/2018 6:57 AM TESTER ELECTRONIC SCALE): Continue pravastatin. He had myalgias on other [...] diet. Assessment & Plan (03/02/2017 6:53 AM TESTER ELECTRONIC SCALE): Hypertension is controlled. Continue current regimen. Reviewed low sodium diet. Assessment & Plan (01/15/2017 6:44 AM CDT): Reviewed proper diet. Continue statin therapy. Hyperlipidemia 01/12/2012 Assessment & Plan (06/08/2024 4:46 AM TESTER ELECTRONIC SCALE): Continue pravastatin. Order lipid panel at next [...] 05/28/2023 Assessment & Plan (03/08/2023 11:40 AM TESTER ELECTRONIC SCALE): Agree with cataract surgery. He has 1st [...] 08/30/2017 Assessment & Plan (03/02/2017 10:48 AM TESTER ELECTRONIC SCALE): Mood is improved. Monitor off medication. Impotence [...] 200. Assessment & Plan (03/07/2018 6:56 AM TESTER ELECTRONIC SCALE): Continue current regimen. Advised annual eye exam.Limit [...] 01/17/2019 Influenza, Unspecified 01/17/2019(Deferred: Daisy ent Refused) [employer] SARS-CoV-2 Vaccination 06/14/2020, 06/14/2020 Pfizer SARS-CoV-2 [...] pur e alcohol) Occasional glass of wine. [employer] Answer Date Recorded In the past 12 months has Iddiction, oil, or water [employer] threatened to shut off services in your [...] week 04/04/2024 How often do you attend [facility] or [facility] services? Never 04/04/2024 Do you belong to [...] any time in the past 12 [facility], were you homeless or living in a detention (including now)? No 04/04/2024 Personal Safety Answer Date Recorded Have you ever been in or are you currently in a harmful physical or emotional relationship or is someone making you feel afraid or unsafe? Denies 06/09/2023 Sex and Gender Information Value Date Recorded Sex Assigned at Not on file Legal Sex Male 4:46 PM TESTER ELECTRONIC SCALE Gender Identity Not on file Sexual Orientation [...] cm (5' 9 ) 06/14/2024 2:58 PM TESTER ELECTRONIC SCALE Body Mass Index 29.98 06/14/2024 2:58 PM TESTER ELECTRONIC SCALE Plan of Treatment Not on file Goals Goal Patient Goal Type Associated Problems Recent Progress Patient-Stated? Author ZAK General Goal - Patient establishes care with [facility] ACO Care Management On track(2023 1:22 PM TESTER ELECTRONIC SCALE) No Clarissa Luna RN Note: Problem: Lack of [facility] communication Interventions: - Provide coordination between [facility] company and patient. - Ensure [facility] has appropriate referral and orders to establish care with patient. - Follow up with patient to ensure initial visit was completed by [facility] and that a [facility] plan has been started. ZAK General Goal - Patient schedules and keeps appointments with all recommended providers ACO Care Management Improving( 1:22 PM TESTER ELECTRONIC SCALE) No Clarissa Luna RN Note: Problem: Potential [...] medication regimen. Medical Devices Implanted Type Area Elevator Serviceman Device Identifier Shelf Expiration Date Model / Serial / Lot [employer] Lens Iol Cna0t0.195 Clareon [employer]onom Cna0t0.195 - [id number] - [id number] Implanted:Qty: 1 on 06/09/2023 by Higinio Connolly MD at [facility] Lens Right: Eye [employer] [id number] 10/27/2025 CNA0T0.19 5 / [id number] / [employer] Lens Iol Cna0t0.200 [employer] Cna0t0.200 - [id number] - [id number] Implanted:Qty: 1 on 05/19/2023 by Higinio Connolly MD at [facility] Left: Eye [employer] [id number] 10/06/2025 CNA0T0.20 0 / [id number] / Procedures Procedure Name Priority Date/Time [...] AM CDT EGFR Routine 06/14/2024 3:48 PM TESTER ELECTRONIC SCALE GABRIELA (acute kidney injury) RENAL FUNCTION PANEL Routine 06/14/2024 3:48 PM TESTER ELECTRONIC SCALE GABRIELA (acute kidney injury) URINALYSIS AND REFLEX TO MICROSCOPIC Routine 06/08/2024 10:47 AM TESTER ELECTRONIC SCALE 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 chronic kidney disease (HCC) Hypertension, essential Secondary hyperparathyroidism of renal origin Stage 3 chronic kidney disease, unspecified whether stage 3a or 3b CKD (HCC) Primary hypertension Vitamin D deficiency Type 2 diabetes mellitus with stage 3a chronic kidney disease, with long-term current use of insulin (HCC) Fatigue, unspecified type GABRIELA (acute kidney injury) EGFR Routine 06/08/2024 10:44 AM TESTER ELECTRONIC SCALE 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 chronic kidney disease (HCC) Hypertension, essential Secondary hyperparathyroidism of renal origin Stage 3 chronic kidney disease, unspecified whether stage 3a or 3b CKD (HCC) Primary hypertension Vitamin D deficiency Type 2 diabetes mellitus with stage 3a chronic kidney disease, with long-term current use of insulin (HCC) Fatigue, unspecified type GABRIELA (acute kidney injury) DIFFERENTIAL AUTO Routine 06/08/2024 10:44 AM TESTER ELECTRONIC SCALE 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 chronic kidney disease [...] RENAL FUNCTION PANEL Routine 06/08/2024 10:44 AM TESTER ELECTRONIC SCALE 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 chronic kidney disease [...] D 25 HYDROXY Routine 06/08/2024 10:44 AM TESTER ELECTRONIC SCALE 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 chronic kidney disease [...] WITH AUTO DIFFERENTIAL Routine 06/08/2024 10:44 AM TESTER ELECTRONIC SCALE 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 chronic kidney disease (HCC) Hypertension, essential Secondary hyperparathyroidism of renal origin Stage 3 chronic kidney disease, unspecified whether stage 3a or 3b CKD (HCC) Primary hypertension Vitamin D deficiency Type 2 diabetes mellitus with stage 3a chronic kidney disease, with long-term current use of insulin (HCC) Fatigue, unspecified type GABRIELA (acute kidney injury) PTH Routine 06/08/2024 10:44 AM TESTER ELECTRONIC SCALE Anemia in stage 3b chronic kidney disease [...] RATIO, URINE, RANDOM Routine 06/08/2024 10:44 AM TESTER ELECTRONIC SCALE Anemia in stage 3b chronic kidney disease (HCC) Hypertension, essential Secondary hyperparathyroidism of renal origin Stage 3 chronic kidney disease, unspecified whether stage 3a or 3b CKD (HCC) Primary hypertension Vitamin D deficiency Type 2 diabetes mellitus with stage 3a chronic kidney disease, with long-term current use of insulin (HCC) Fatigue, unspecified type GABRIELA (acute kidney injury) LIPID PANEL Routine 03/08/2023 11:55 AM TESTER ELECTRONIC SCALE Hyperlipidemia, unspecified hyperlipidemia type ALBUMIN CREATININE RATIO, [...] Large Ketones, ur, POC Negative Negative Specific Villanueva, POC 1.015 1.003 - 1.030 Blood, ur, POC Hemolyzed, trace(A) Negative pH, ur, POC 6.0 5.0 - 8.0 Protein, ur, POC 30.(A) Negative Urobilinogen, urine, POC 0.2 0.2 - 1.0 mg/dL Nitrite, ur, POC Negative Negative Leukocytes, ur, POC Negative Negative Lot Number [id number] Urine 07/19/2024 2:16 PM CDT Result [facility]au ESQUIVEL POINT OF CARE TEST ORDER ALAN Final Result * Urine culture Urine, clean voided (07/19/2024 12:00 PM CDT) Report Final Report: No growth Comment:Testing performed by : [facility], [address] [place]., [address] Urine, clean voided 07/19/2024 12:00 PM CDT 07/20/2024 2:19 AM CDT Narrative MERLINE AMADOR - 07/21/2024 7:38 AM CDT Testing performed by [facility] Microbiology Laboratory ([phone]) Result [facility] ESQU[facility] LAB MICROBIOLOGY - GENER AL ORDERABLES Final Result MERLINE AMADOR [address] Efren Alaniz Department [place] [address] * (ABNORMAL) eGFR (07/18/2024 12:07 PM CDT) [facility] eGFR 23(L) >=60 mL/min/1. 73 m2 [...] LAB BLOOD ORDERABLES Final Resul t [facility] Department [place] [address] * (ABNORMAL) Differential, auto (07/18/2024 12:07 PM CDT) [facility] Neutrophil abs 17.55(H) 1.50 - 6.50 K/cumm Comment:Testing performed by : [facility] Heme [facility], [address] [place] [phone] Lymphocyte abs 0.96 0.80 - 3.30 K/cumm MERLINE PERDOMO Comment:Testing performed by : [facility] Heme [facility], [address] [place] [phone] Monocyte abs 1.48(H) 0.20 - 0.80 K/cumm [facility] Comment:Testing performed by : [facility]e [facility], [address] [place] [phone] Eosinophil abs 0.06 0.00 - 0.50 K/cumm [facility] Comment:Testing performed by : [facility]e [facility], [address] [place] [phone] Basophil abs 0.03 0.00 - 0.10 K/cumm [facility] Comment:Testing performed by : [facility]e [facility], [address] [place] [phone] Neutrophil pct 87.4 % [facility] Comment: Interpretive Data Percent cell count reference ranges are not reported, since discordance with absolute values may lead to misinterpretation of CBC data. Current Interpretive Data was last revised on 2017. Testing performed by: [facility], [address] [place] [phone] Lymphocyte pct 4.8 % [facility] Comment: Interpretive Data Percent cell count reference ranges are not reported, since discordance with absolute values may lead to misinterpretation of CBC data. Current Interpretive Data was last revised on 2017. Testing performed by: [facility], [address] [place] [phone] Monocyte pct 7.4 % [facility] Comment: Interpretive Data Percent cell count reference ranges are not reported, since discordance with absolute values may lead to misinterpretation of CBC data. Current Interpretive Data was last revised on 2017. Testing performed by: [facility]e [facility], [address] [place] [phone] Eosinophil pct 0.3 % [facility] Comment: Interpretive Data Percent cell count reference ranges are not reported, since discordance with absolute values may lead to misinterpretation of CBC data. Current Interpretive Data was last revised on 2017. Testing performed by: [facility], [address] [place] [phone] Basophil pct 0.2 % [facility] Comment: Interpretive Data Percent cell count reference ranges are not reported, since discordance with absolute values may lead to misinterpretation of CBC data. Current Interpretive Data was last revised on 2017. Testing performed by: [facility]e [facility], [address] [place] [address] Blood 07/18/2024 12:0 7 PM CDT 07/18/2024 12:22 PM CDT us Gautam Cope MD LAB BLOOD ORDERABLES Final Resul t [facility] One [facility] Department [place] [address] * (ABNORMAL) CBC with auto differential (07/18/2024 12:07 PM CDT) WBC 20.09(H) 3.80 - 9.90 K/cumm Comment:Testing performed by : [facility]e [facility], [address] [place] [address] Hgb 12.1(L) 13.0 - 17.5 g/dL MERLINE PERDOMO Comment:Testing performed by : [facility]e [facility], [address] [place] [address] Hct 38.2(L) 38.9 - 50.3 % CERONEAL PERDOMO Comment:Testing performed by : [facility]e [facility], [address] [place] [address] Plt 451(H) 150 - 400 K/cumm MERLINE PERDOMO Comment:Testing performed by : [facility]e [facility], [address] [place] [address] MPV 7.7 6.8 - 10.4 fL CERONEAL [facility] Comment:Testing performed by : [facility]e [facility], [address] [place] [address] RBC 4.46 4.30 - 5.80 M/cumm CERONEAL [facility] Comment:Testing performed by : [facility]e [facility], [address] [place] [address] MCV 85.5 81.3 - 96.4 fL CERONEAL [facility] Comment:Testing performed by : [facility] Heme [facility], [address] [place] [address] MCH 27.1 27.1 - 33.3 pg [facility] Comment:Testing performed by : [facility] Heme Lab, [address] [place] [address] MCHC 31.7(L) 32.3 - 35.7 g/dL MERLINE [facility] Comment:Testing performed by : [facility] Heme Lab, [address] [place] [address] RDW CV 14.9 11.1 - 14.9 % [facility] Comment:Testing performed by : [facility] Heme Lab, [address] [place] [address] NRBC abs 0.00 0.00 - 0.01 K/cumm MERLINE [facility] Comment:Testing performed by : [facility] Heme Lab, [address] [place], [place] [phone] Blood 07/18/2024 12:0 7 PM CDT 07/18/2024 12:22 PM CDT Gautam Cope MD LAB BLOOD ORDERABLES Final Resul t [facility] Department [place] [address] * PSA diagnostic (07/18/2024 12:07 PM CDT) [...] Final Resul t Performing Organization Address [facility] de Phone Number [facility] [email or web address] [address] * Lactate dehydrogenase (LD) (07/18/2024 12:07 PM CDT) Lactate dehydrogenase (LDH) 216 100 - 250 Units/L Blood 07/18/2024 12:0 7 PM CDT 07/18/2024 12:25 PM CDT Gautam Cope MD LAB BLOOD ORDERABLES Final Resul t Performing Organization Address [facility] de Phone Number [facility] [email or web address] [address] * (ABNORMAL) Hemoglobin A1c (07/18/2024 12:07 PM CDT) Hgb A1C 8.0(H) 4.0 - 5.6 % Estimated Average Glucose 183 mg/dL [facility] Comment: The ADA recommends reporting an estimated [...] Final Resul t Performing Organization Address [facility] [place] [address] * (ABNORMAL) Comprehensive metabolic panel (07/18/2024 12:07 PM CDT) Sodium 142 135 - 145 mmol/L Potassium, pl 4.6 3.3 - 4.9 mmol/L [facility] Chloride 106 97 - 110 mmol/L [facility] CO2 24 22 - 32 mmol/L [facility] Anion gap 12 2 - 15 mmol/L [facility] BUN 52(H) 6 - 25 mg/dL [facility] Creatinine 2.66(H) 0.80 - 1.30 mg/dL [facility] Glucose 164 70 - 199 mg/dL [facility] Comment: Interpretive Data Fasting glucose >/= 126 [...] Calcium 9.0 8.5 - 10.3 mg/dL [facility] Bilirubin, total 0.5 0.1 - 1.2 mg/dL [facility] Protein, pl 6.7 6.5 - 8.5 g/dL [facility] Albumin 4.0 3.5 - 5.0 g/dL [facility] Alk phos 126 40 - 130 Units/L [facility] ALT 10 7 - 55 Units/L [facility] AST 13 10 - 50 Units/L [facility] Blood 07/18/2024 12:0 7 PM CDT 07/18/2024 12:25 PM CDT Gautam Cope MD LAB BLOOD ORDERABLES Final Resul t [facility] One [facility] Department [place] [address] * SCAN - RADIOLOGY/IMAGING (07/01/2024 9:44 AM CDT) Anatomical Region Laterality Modality Other us Provider Scanning Final Result * (ABNORMAL) eGFR (06/14/2024 3:48 PM TESTER ELECTRONIC SCALE) eGFR 26(L) >=60 mL/min/1. 73 m2 Comment: [...] last reviewed 2021. Blood 06/14/2024 3:48 PM TESTER ELECTRONIC SCALE 06/14/2024 4:07 PM TESTER ELECTRONIC SCALE us Lin Guerrero MD LAB BLOOD ORDERABLES Final Resul t [facility] Department [place] [address] * (ABNORMAL) Renal function panel (06/14/2024 3:48 PM TESTER ELECTRONIC SCALE) Pathologist [facility] Sodium 143 135 - 145 mmol/L Potassium, pl 5.0(H) 3.3 - 4.9 mmol/L [facility] Chloride 105 97 - 110 mmol/L [facility] CO2 28 22 - 32 mmol/L [facility] Anion gap 10 2 - 15 mmol/L [facility] BUN 48(H) 6 - 25 mg/dL [facility] Creatinine 2.42(H) 0.80 - 1.30 mg/dL [facility] Glucose 152 70 - 199 mg/dL [facility] Comment: Interpretive Data Fasting glucose >/= 126 [...] 2022. Calcium 8.7 8.5 - 10.3 mg/dL [facility] Phosphorus, pl 3.1 2.3 - 4.5 mg/dL [facility] Albumin 3.9 3.5 - 5.0 g/dL [facility] Blood 06/14/2024 3:48 PM TESTER ELECTRONIC SCALE 06/14/2024 4:03 PM TESTER ELECTRONIC SCALE us Lin Guerrero MD LAB BLOOD ORDERABLES Final Resul t [facility] Department [place] [address] * Urinalysis reflex to microscopic (06/08/2024 10:47 AM TESTER ELECTRONIC SCALE) Color, ur Straw Yellow Clarity, ur Clear Clear [facility] Specific gravity, ur 1.012 1.003 - 1.030 [facility] pH, urine 6.0 [facility] Comment: Interpretive Data U rine pH is affected by diet, medications, systemic acid-base disturbances, and renal tubular function. pH may affect urinary stone formation. For example, urine pH below 6.0 may help reduce the tendency for calcium phosphate stones and pH greater than 6.0 may reduce the tendency for uric acid stone formation. Source: [facility] [email or web address] Current Interpretive Data was last revised on 2017 Protein, ur ql Trace Negative [facility] Glucose, ur ql Negative Negative [facility] Ketones, ur Negative Negative [facility] Bilirubin, ur Negative Negative [facility] Blood, ur Negative Negative [facility] Urobilinogen, ur <2.0 <2.0 mg/dL [facility] Nitrite, ur Negative Negative [facility] Leukocyte esterase, ur Negative Negative [facility] UA reflex comment Reflex conditions for microscopic UA not met. [facility] Urine 06/08/2024 10:4 7 AM TESTER ELECTRONIC SCALE 06/08/2024 11:41 AM TESTER ELECTRONIC SCALE Lin Guerrero MD LAB URINE ORDERABLES Final Resul t Performing Organization Address [facility] Co de Phone Number [facility] [place] [address] * (ABNORMAL) eGFR (06/08/2024 10:44 AM TESTER ELECTRONIC SCALE) eGFR 22(L) >=60 mL/min/1. 73 m2 Comment: [...] reviewed 2021. Blood 06/08/2024 10:4 4 AM TESTER ELECTRONIC SCALE 06/08/2024 11:23 AM TESTER ELECTRONIC SCALE us Lin Guerrero MD LAB BLOOD ORDERABLES Final Resul t Performing Organization Address City/[facility]/ZIP Co de Phone Number [facility] Department [place] [address] * (ABNORMAL) Differential, auto (06/08/2024 10:44 AM TESTER ELECTRONIC SCALE) Neutrophil abs 7.8(H) 1.5 - 6.5 K/cumm Imm gran abs 0.1 0.0 - 0.1 K/cumm [facility] Lymphocyte abs 1.9 0.8 - 3.3 K/cumm [facility] Monocyte abs 1.0(H) 0.2 - 0.8 K/cumm [facility] Eosinophil abs 0.1 0.0 - 0.5 K/cumm [facility] Basophil abs 0.0 0.0 - 0.1 K/cumm [facility] Neutrophil pct 71.1 % [facility] Comment: Interpretive Data Percent cell count reference ranges are not reported, since discordance with absolute values may lead to misinterpretation of CBC data. Current Interpretive Data was last revised on 2017. Imm gran pct 0.8 % [facility] Comment: Interpretive Data Percent cell count reference ranges are not reported, since discordance with absolute values may lead to misinterpretation of CBC data. Current Interpretive Data was last revised on 2017. Lymphocyte pct 17.1 % [facility] Comment: Interpretive Data Percent cell count reference ranges are not reported, since discordance with absolute values may lead to misinterpretation of CBC data. Current Interpretive Data was last revised on 2017. Monocyte pct 9.3 % [facility] Comment: Interpretive Data Percent cell count reference ranges are not reported, since discordance with absolute values may lead to misinterpretation of CBC data. Current Interpretive Data was last revised on 2017. Eosinophil pct 1.3 % [facility] Comment: Interpretive Data Percent cell count reference ranges are not reported, since discordance with absolute values may lead to misinterpretation of CBC data. Current Interpretive Data was last revised on 2017. Basophil pct 0.4 % [facility] Comment: Interpretive Data Percent cell count reference ranges are not reported, since discordance with absolute values may lead to misinterpretation of CBC data. Current Interpretive Data was last revised on 2017. Blood 06/08/2024 10:4 4 AM TESTER ELECTRONIC SCALE 06/08/2024 11:23 AM TESTER ELECTRONIC SCALE us Lin Guerrero MD LAB BLOOD ORDERABLES Final Resul t [facility] Department [place] [address] * (ABNORMAL) CBC with auto differential (06/08/2024 10:44 AM TESTER ELECTRONIC SCALE) [facility] WBC 11.0(H) 3.8 - 9.9 K/cumm Hgb 12.0(L) 13.0 - 17.5 g/dL [facility] Hct 36.9(L) 38.9 - 50.3 % [facility] Plt 357 150 - 400 K/cumm [facility] MPV 9.8 9.1 - 12.3 fL [facility] RBC 4.27(L) 4.30 - 5.80 M/cumm [facility] MCV 86.4 81.3 - 96.4 fL [facility] MCH 28.1 27.1 - 33.3 pg [facility] MCHC 32.5 32.3 - 35.7 g/dL [facility] RDW CV 14.1 11.1 - 14.9 % [facility] RDW SD 44.2 35.7 - 48.1 fL [facility] NRBC abs 0.00 0.00 - 0.01 K/cumm [facility] Blood 06/08/2024 10:4 4 AM TESTER ELECTRONIC SCALE 06/08/2024 11:23 AM TESTER ELECTRONIC SCALE us Lin Guerrero MD LAB BLOOD ORDERABLES Final Resul t Performing Organization Address [facility] Co de Phone Number [facility] Department [place] [address] * (ABNORMAL) Protein / creatinine ratio, urine, random (06/08/2024 10:44 AM TESTER ELECTRONIC SCALE) [facility] Protein, ur, quant 21.3 mg/dL Comment: Interpretive Data No reference range established. Current interpretive data was last revised 2018. Creatinine Ur 52.2 mg/dL [facility] Comment: Interpretive Data No reference range established. Current interpretive data was last revised 2018. Protein/creatinin e ratio 408.0(H) 0.0 - 180.0 mg/g CR [facility] Urine 06/08/2024 10:4 4 AM TESTER ELECTRONIC SCALE 06/08/2024 11:23 AM TESTER ELECTRONIC SCALE us Lin Guerrero MD LAB URINE ORDERABLES Final Resul t Performing Organization Address [facility] de Phone Number [facility] [email or web address] [address] * Vitamin D 25 hydroxy (06/08/2024 10:44 AM TESTER ELECTRONIC SCALE) Pathologist [facility] Vitamin D 25-OH 42 30 - 80 ng/mL Blood 06/08/2024 10:4 4 AM TESTER ELECTRONIC SCALE 06/08/2024 11:23 AM TESTER ELECTRONIC SCALE us Lin Guerrero MD LAB BLOOD ORDERABLES Final Resul t Performing Organization Address [facility] de Phone Number [facility] [email or web address] [address] * (ABNORMAL) PTH (06/08/2024 10:44 AM TESTER ELECTRONIC SCALE) Pathologist [facility] PTH 78(H) 15 - 65 pg/mL Blood 06/08/2024 10:4 4 AM TESTER ELECTRONIC SCALE 06/08/2024 11:23 AM TESTER ELECTRONIC SCALE us Lin Guerrero MD LAB BLOOD ORDERABLES Final Resul t Performing Organization Address [facility] de Phone Number [facility] [email or web address] [address] * (ABNORMAL) Renal function panel (06/08/2024 10:44 AM TESTER ELECTRONIC SCALE) Pathologist [facility] Sodium 142 135 - 145 mmol/L Potassium, pl 4.8 3.3 - 4.9 mmol/L [facility] Chloride 107 97 - 110 mmol/L [facility] CO2 27 22 - 32 mmol/L [facility] Anion gap 8 2 - 15 mmol/L [facility] BUN 60(H) 6 - 25 mg/dL [facility] Creatinine 2.72(H) 0.80 - 1.30 mg/dL [facility] Glucose 94 70 - 199 mg/dL [facility] Comment: Interpretive Data Fasting glucose >/= 126 [...] Calcium 9.0 8.5 - 10.3 mg/dL [facility] Phosphorus, pl 3.5 2.3 - 4.5 mg/dL [facility] Albumin 3.8 3.5 - 5.0 g/dL [facility] Blood 06/08/2024 10:4 4 AM TESTER ELECTRONIC SCALE 06/08/2024 11:23 AM TESTER ELECTRONIC SCALE us Lin Guerrero MD LAB BLOOD ORDERABLES Final Resul t [facility] Department [place] [address] * (ABNORMAL) Lipid panel (03/08/2023 11:55 AM TESTER ELECTRONIC SCALE) Cholesterol 193 30 - 199 mg/dL [facility] Comment: Interpretive Data Ages < or = [...] revised on 2017. Triglycerides 250(H) <=149 mg/dL [facility] Comment: Interpretive Data Ages < or = [...] revised on 2017. HDL 36(L) >=40 mg/dL [facility] Comment: Interpretive Data Ages < or = [...] on 2017. LDL, calculated 107 <=129 mg/dL [facility] Comment: Interpretive Data Ages < or = [...] revised on 2017. Non-HDL Cholesterol 157 mg/dL [facility] Comment: Interpretive Data Ages < or = [...] revised on 2017. Chol/HDL ratio 5 [facility] Blood 03/08/2023 11:5 5 AM TESTER ELECTRONIC SCALE 03/08/2023 3:48 PM TESTER ELECTRONIC SCALE Result [facility] Kraig Ching MD LAB BLOOD ORDERABLES Final Re sult Performing Organization Address [facility] Co de Phone Number [facility] Department [email or web address] [address] * (ABNORMAL) Albumin Creatinine Ratio, Urine (01/01/2023 10:40 AM CDT) Albumin Ur 227.3 mg/L [facility] Comment: Interpretive Data No reference range established. Current interpretive data was last revised 2018. Creatinine Ur 66.5 mg/dL [facility] Comment: Interpretive Data No reference range established. Current interpretive data was last revised 2018. Albumin Creatinine Ratio, Ur 342(H) 1 - 29 mg/g [facility] Urine 01/01/2023 10:4 0 AM CDT 01/01/2023 10:45 AM CDT Kraig Ching MD LAB URINE ORDERABLES Final Re sult Performing Organization Address [facility] Co de Phone Number [facility] [email or web address] [address] * DIABETES EYE EXAM (06/29/2018) Diabetic Eye Exam Normal Result [facility] Historical Provider HEALTH MAINTENANCE Final Result from Last 3 Months or Most Recently Relevant to Health Maintenance Insurance [facility] MEDICARE [facility] MEDICARE [employer] MEDICARE [employer] MEDICARE Advance Directives For more information, please contact: [phone] * Full Code (Latest Code Status on File) Date Activated Date Inactivated Comments 12/16/2017 2:44 PM 12/16/2017 7:18 PM Care Teams Store Standards Associate Relationship Specialty Start Date End Date Kraig Ching MD [address] [facility] [address] [place] [address] PCP - General 07/10/16 Gautam Cope MD [address] [facility] [address] [place] [address] Medical Oncologist/Law Reporter Medical Oncology 08/18/18 Tramaine Roe MD [address] [facility] [address] [place] [address] Referring Physician Urology 08/18/18 Sukhwinder Uribe MD [address] [place] [address] Consulting Physician Urology 08/18/18 Shay Guillermo MD [address] [address] Referring Physician Urology 08/18/18 Marsha Landis RN Registered Nurse 11/17/18
--- OUTSIDE RECORDS SUMMARY | 2024-07-29 09:59 | XMS_ITS | Encounter Summary ---
Author Organization [facility] Address [address] [place] [address] Phone Care Team Providers Care Corn Detasseler Machine Operator Name Role Phone Kraig Ching MD Primary Care Provider [phone] Gautam Cope MD Unavailable Tramaine Roe MD Unavailable [phone] Sukhwinder Uribe MD Unavailable [phone] Shay Guillermo MD Unavailable [phone] Marsha Landis RN Unavailable Unavailab Clarissa Harry RN Unavailable [phone] Encounter Details Date Type Department Care [...] on file Legal Sex Male 4:46 PM GENETICS PHYSICIAN Gender Identity Not on file Sexual Orientation Not on file documented as of this encounter Functional Status documented as of this encounter Plan of Treatment Scheduled Orders Name Type Priority Associated Diagnoses Orde r Schedule CARDIOLOGY DOCUMENT SCAN Cardiac Services Ordered: 03/21/2023 documented as of this encounter Visit Diagnoses Not on filedocumented in this encounter Care Teams Corn Detasseler Machine Operator Relationship Specialty Start Date End Date Kraig Ching MD [address] [facility] [address] [place] [address] PCP - General 07/10/16 Gautam Cope MD [address] [facility] [address] [place] [address] Medical Oncologist/Home Support Worker Medical Oncology 08/18/18 Tramaine Roe MD [address] [facility] [address] [place] [address] Referring Physician Urology 08/18/18 Sukhwinder Uribe MD [address] [facility] [address] [place] [address] Consulting Physician Urology 08/18/18 Shay Guillermo MD [address] [facility] [address] [place] [address] Referring Physician Urology 08/18/18 Marsha Landis RN Registered Nurse 11/17/18 Clarissa Luna RN [address] [place] [address] [address] [place] [address] [employer] 04/04/24 04/26/24 documented as of this encounter
[2024-07-29 10:03] LABS: Alanine Aminotransferase 25 U/L (6-50); Albumin Level 3.6 g/dL (3.5-5.1); Alkaline Phosphatase 116 U/L (38-126); Anion Gap 11 mmol/L (4-12); Aspartate Amino Transferase 35 U/L (17-59); Bilirubin,Total 0.8 mg/dL (0.2-1.3); Blood Urea Nitrogen 47 mg/dL (9-20); Calcium 8.8 mg/dL (8.4-10.2); Carbon Dioxide 26 mmol/L (22-30); Chloride 97 mmol/L (98-107); Estimated CRCL calculation 22 ml/min; Estimated Glomerular Filt Rate 26; Glucose 147 mg/dL (65-110); Lipase 68 U/L (23-300); Potassium 3.8 mmol/L (3.4-5.0); Sodium 134 mmol/L (137-145)
[2024-07-29 10:31] LABS: Lactic Acid Reflex 1.1 mmol/L (0.7-2.0); Magnesium 1.5 mg/dL (1.6-2.3)
--- NOTE | 2024-07-29 10:31 | ED_ITS ---
HPI - General Adult General Chief complaint: Nausea/Vomiting/Diarrhea Stated complaint: nausea Time Seen by Provider: 07/29/24 09:36 History of Present Illness HPI narrative: Patient is a 83-year-old gentleman who presents emergency department with chief complaint of nausea patient reports that he had recent hospitalization and was discharged on antibiotics the patient states he has felt nauseated and reports he has had some loose stool at times. Related Data Home Medications ?Medication ?Instructions ?Recorded ?Confirmed ?Last Taken ?Type insulin aspart U-100 100 unit/mL 8 unit subcut TID 06/19/22 07/21/24 07/20/24 History (3 mL) subcutaneous pen (Novolog FlexPen U-100 Insulin aspart) insulin glargine 100 unit/mL (3 28 unit subcut QHS 06/19/22 07/21/24 08/02/23 History mL) subcutaneous pen (Lantus Solostar U-100 Insulin) pantoprazole 40 mg tablet,delayed 40 mg PO DAILY 06/19/22 07/21/24 08/02/23 History release abiraterone 250 mg tablet 1,000 mg PO HS 03/26/24 07/21/24 07/20/24 History carvedilol 12.5 mg tablet 12.5 mg PO Q12H 03/26/24 07/21/24 Unknown History chlorthalidone 25 mg tablet 25 mg PO DAILY 03/26/24 07/21/24 Unknown History dorzolamide 22.3 mg-timolol 6.8 1 drp EACH EYE Q12H 03/26/24 07/21/24 Unknown History mg/mL eye drops fluoride (sodium) 1.1 % dental 1 applic dental Q24H 03/26/24 07/21/24 07/20/24 History cream (PreviDent 5000 Plus) insulin aspart U-100 100 unit/mL 1 sliding scale dose subcut TID 03/26/24 07/21/24 Unknown History (3 mL) subcutaneous pen (Novolog FlexPen U-100 Insulin aspart) lisinopril 20 mg tablet 40 mg PO DAILY 03/26/24 07/21/24 07/20/24 History oxycodone 5 mg tablet 5 mg PO Q6H PRN pain 03/26/24 07/21/24 07/21/24 History pravastatin 20 mg tablet 20 mg PO HS 03/26/24 07/21/24 07/20/24 History prednisone 5 mg tablet 5 mg PO Q12H 03/26/24 07/21/24 07/20/24 History sitagliptin phosphate 25 mg tablet 25 mg PO DAILY 03/26/24 07/21/24 07/20/24 History (Januvia) Allergies Allergy/AdvReac Type Severity Reaction Status Date / Time No Known Drug Allergies Allergy Unknown Other Verified 07/29/24 09:30 Review of Systems 2 Review of Systems: A 10 system review of systems was completed on the patient and is negative except for what is stated in the HPI. Nursing and ancillary documentation was reviewed. 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 He smokes 1-2 cigarettes per day most days. He denies marijuana use or other drug use. He drinks 1-2 alcoholic drinks per week. He has cats. Code status -full Surrogate decision maker - Years smoked: 50 Smoking status: Current every day smoker Tobacco type: cigarettes Second hand tobacco smoke exposure: Yes Additional smoking assessment comments: marijuana daily and regular cigarettes smokes intermittently Alcohol intake: current Drinks per week: 4 Substance use: current Substance use type: marijuana Other substance usage details: smoke once a day Last use: 07/30/2023 Do You Feel Safe in your Home?: Yes Lack of Transportation: No Lack of Food: Never True Current Housing: I Have Housing Concerned About Future Housing: No Difficulty Paying Gas/Electric Bills: No Difficulty Paying for Meds: No Currently Unemployed: No Education: Decline to Answer Difficulty w/ Childcare or Family Care: No Spiritual care concerns: No Exam 2 Narrative: GENERAL: Well-appearing, well-nourished, and in no acute distress. HEAD: Normocephalic, atraumatic. EYES: PERRLA and EOMI. ENT: Nares clear, no rhinorrhea or epistaxis. Mucous membranes moist. NECK: Supple. CHEST: Clear to auscultation. No respiratory distress. HEART: Regular rate and rhythm. No murmur heard. Normal peripheral pulses. ABDOMEN: Soft, mild tenderness to palpation, nondistended, normal active bowel sounds. EXTREMITIES: Normal range of motion. No edema. SKIN: Warm, dry, no rash. NEURO: No focal deficits. Alert and oriented x3. PSYCH: Normal mood and affect. Course Vital Signs Vital signs: Vital Signs Temperature 36.7 C 07/29/24 09:16 Pulse Rate 90 07/29/24 09:16 Respiratory Rate 16 07/29/24 09:16 Blood Pressure 101/60 07/29/24 09:16 Pulse Oximetry 96 07/29/24 09:16 Temperature 36.7 C 07/29/24 09:16 Pulse Rate 80 07/29/24 12:31 Respiratory Rate 23 H 07/29/24 12:31 Blood Pressure 99/58 L 07/29/24 12:31 Pulse Oximetry 94 07/29/24 12:31 Medical Decision Making MDM Narrative Medical decision making narrative: Differential diagnosis includes dehydration, electrolyte abnormality, medication side effect, Laboratory studies were obtained on the patient Patient's troponin was initially 0.035 a 3 hour repeat troponin was unchanged the patient's nausea is doing better the patient actually has improvement from when he was admitted to the hospital with his cellulitis is felt that nausea is most likely secondary antibiotics these will be discontinued the patient will be started on oral anti emetics and will be discharged home Vital Signs Vital Signs: Vital Signs Temperature 36.7 C 07/29/24 09:16 Pulse Rate 90 07/29/24 09:16 Respiratory Rate 16 07/29/24 09:16 Blood Pressure 101/60 07/29/24 09:16 Pulse Oximetry 96 07/29/24 09:16 Temperature 36.7 C 07/29/24 09:16 Pulse Rate 80 07/29/24 12:31 Respiratory Rate 23 H 07/29/24 12:31 Blood Pressure 99/58 L 07/29/24 12:31 Pulse Oximetry 94 07/29/24 12:31 Lab Data 07/29/24 09:35 07/29/24 09:35 Labs: Lab Results 07/29/24 07/29/24 07/29/24 Range/Units 09:35 10:15 11:31 WBC 10.1 H (4.5-10.0) K/mm3 RBC 4.29 L (4.6-6.20) M/mm3 Hgb 11.7 L (14.0-18.0) g/dL Hct 37.6 L (42.0-52.0) % MCV 87.6 (80-100) fl MCH 27.3 (26-34) pg MCHC 31.1 L (32-36) g/dl RDW 13.5 (11.5-14.5) % Plt Count 525 H D (150-375) k/mm3 MPV 9.7 (7.4-10.4) fl Immature Gran % (Auto) 0.8 H (0-0.5) % Neut % (Auto) 70.0 (45.5-73.1) % Lymph % (Auto) 14.6 L (18.3-44.2) % [place] % (Auto) 10.8 H (2.6-8.5) % Eos % (Auto) 3.4 (0-4.4) % Baso % (Auto) 0.4 (0.2-1.2) % Lymph # (Auto) 1.47 (0.9-3.2) K/mm3 [place] # (Auto) 1.1 H (0.1-0.6) K/mm3 Eos # (Auto) 0.3 (0-0.3) K/mm3 Baso # (Auto) 0.0 (0.0-0.1) K/mm3 Abs Immat Gran (auto) 0.08 H (0.00-0.031) K/mm3 Absolute Neuts (auto) 7.1 H (1.3-6.7) K/mm3 Absolute Nucleated RBC 0.000 (0.0-0.012) K/mm3 Nucleated RBC % 0.0 (0.0-0.2) % Sodium 134 L (137-145) mmol/L Potassium 3.8 (3.4-5.0) mmol/L Chloride 97 L (98-107) mmol/L Carbon Dioxide 26 (22-30) mmol/L Anion Gap 11 (4-12) mmol/L BUN 47 H (9-20) mg/dL Creatinine 2.39 H (0.7-1.3) mg/dL Estim Creat Clear Calc 22 ml/min Estimated GFR 26 L (59 - ) Glucose 147 H (65-110) mg/dL Lactic Acid 1.1 (0.7-2.0) mmol/L Calcium 8.8 (8.4-10.2) mg/dL Magnesium 1.5 L (1.6-2.3) mg/dL Total Bilirubin 0.8 (0.2-1.3) mg/dL AST 35 (17-59) U/L ALT 25 (6-50) U/L Alkaline Phosphatase 116 (38-126) U/L Troponin I 0.035 H* (0.000-0.034) ng/mL NT-Pro-B Natriuret Pep 2190 H (19.9-100) pg/mL Total Protein 7.0 (6.3-8.2) g/dL Albumin 3.6 (3.5-5.1) g/dL Lipase 68 (23-300) U/L Urine Color Yellow (Yellow) Urine Appearance Clear (Clear) Urine pH 5.5 (5.0-9.0) Ur Specific [place] 1.013 (1.001-1.035) Urine Protein 1+ H (Negative) mg/dL Urine Glucose (UA) Negative (Negative) mg/dL Urine Ketones Trace H (Negative) mg/dL Ur Blood (Man) Negative (Negative) Urine Nitrate Negative (Negative) Urine Bilirubin Negative (Negative) Urine Urobilinogen 0.2 (<2.0) mg/dL Add Ur Microanalysis Reviewed Leukocyte Esterase Rfl Negative (Negative) NADYA/UL Urine RBC 0-2 (0-2) /hpf Urine WBC 0-5 (0-3) /hpf Ur Squamous Epith Cells None seen (Few) /hpf Urine Bacteria None seen /hpf Urine Casts 6-10 Hyaline Casts Present (None) /lpf Influenza A (RT-PCR) Negative (Negative) Influenza B (RT-PCR) Negative (Negative) RSV (RT-PCR) Negative (Negative) SARS-CoV-2 RNA (RT-PCR) Negative (Negative) 07/29/24 Range/Units 12:38 WBC (4.5-10.0) K/mm3 RBC (4.6-6.20) M/mm3 Hgb (14.0-18.0) g/dL Hct (42.0-52.0) % MCV (80-100) fl MCH (26-34) pg MCHC (32-36) g/dl RDW (11.5-14.5) % Plt Count (150-375) k/mm3 MPV (7.4-10.4) fl Immature Gran % (Auto) (0-0.5) % Neut % (Auto) (45.5-73.1) % Lymph % (Auto) (18.3-44.2) % [place] % (Auto) (2.6-8.5) % Eos % (Auto) (0-4.4) % Baso % (Auto) (0.2-1.2) % Lymph # (Auto) (0.9-3.2) K/mm3 [place] # (Auto) (0.1-0.6) K/mm3 Eos # (Auto) (0-0.3) K/mm3 Baso # (Auto) (0.0-0.1) K/mm3 Abs Immat Gran (auto) (0.00-0.031) K/mm3 Absolute Neuts (auto) (1.3-6.7) K/mm3 Absolute Nucleated RBC (0.0-0.012) K/mm3 Nucleated RBC % (0.0-0.2) % Sodium (137-145) mmol/L Potassium (3.4-5.0) mmol/L Chloride (98-107) mmol/L Carbon Dioxide (22-30) mmol/L Anion Gap (4-12) mmol/L BUN (9-20) mg/dL Creatinine (0.7-1.3) mg/dL Estim Creat Clear Calc ml/min Estimated GFR (59 - ) Glucose (65-110) mg/dL Lactic Acid (0.7-2.0) mmol/L Calcium (8.4-10.2) mg/dL Magnesium (1.6-2.3) mg/dL Total Bilirubin (0.2-1.3) mg/dL AST (17-59) U/L ALT (6-50) U/L Alkaline Phosphatase (38-126) U/L Troponin I 0.035 H* (0.000-0.034) ng/mL NT-Pro-B Natriuret Pep (19.9-100) pg/mL Total Protein (6.3-8.2) g/dL Albumin (3.5-5.1) g/dL Lipase (23-300) U/L Urine Color (Yellow) Urine Appearance (Clear) Urine pH (5.0-9.0) Ur Specific [place] (1.001-1.035) Urine Protein (Negative) mg/dL Urine Glucose (UA) (Negative) mg/dL Urine Ketones (Negative) mg/dL Ur Blood (Man) (Negative) Urine Nitrate (Negative) Urine Bilirubin (Negative) Urine Urobilinogen (<2.0) mg/dL Add Ur Microanalysis Leukocyte Esterase Rfl (Negative) NADYA/UL Urine RBC (0-2) /hpf Urine WBC (0-3) /hpf Ur Squamous Epith Cells (Few) /hpf Urine Bacteria /hpf Urine Casts Hyaline Casts (None) /lpf Influenza A (RT-PCR) (Negative) Influenza B (RT-PCR) (Negative) RSV (RT-PCR) (Negative) SARS-CoV-2 RNA (RT-PCR) (Negative) Discharge Plan Discharge Clinical Impression: Nausea & vomiting Patient Disposition: Home Condition: Stable Instructions: Antibiotic Form, Acute Nausea and Vomiting (ED) Additional Instructions: Please discontinue taking the antibiotics. Please slowly advance your diet Patient Language: [place] Prescriptions: New ondansetron 4 mg tablet,disintegrating 4 mg PO Q8H PRN (Reason: nausea and vomiting) Qty: 10 0RF No Action pantoprazole 40 mg tablet,delayed release (DR/EC) 40 mg PO DAILY insulin aspart U-100 [Novolog FlexPen U-100 Insulin] 100 unit/mL (3 mL) insulin pen 8 unit SUBCUT TID Protocol: Insulin Corrective Low-Dose Condition: glucose < 70 mg/dl Dose/Route: Follow Hypoglycemia Order Condition: glucose 70-200 mg/dl Dose/Route: No additional insulin Condition: glucose 201-250 mg/dl Dose/Route: 2 units sub-Q Condition: glucose 251-300 mg/dl Dose/Route: 3 units sub-Q Condition: glucose 301-350 mg/dl Dose/Route: 4 units sub-Q Condition: glucose 351-400 mg/dl Dose/Route: 5 units sub-Q Condition: glucose > 400 mg/dl Dose/Route: Call MD Protocol Text: *No Correction Dose at Bedtime* Rx Instructions: Pt states he takes for glucose level 150 or higher. pt takes this intermittently insulin glargine [Lantus Solostar U-100 Insulin] 100 unit/mL (3 mL) insulin pen 28 unit subcut QHS Rx Instructions: Pt states he holds medication if glucose levels under 140. albuterol sulfate 90 mcg/actuation HFA aerosol inhaler 2 puff inhalation QID PRN (Reason: shortness of breath or wheezing) Qty: 8.5 2RF albuterol sulfate [Ventolin HFA] 90 mcg/actuation HFA aerosol inhaler 1 inh inhalation QID Qty: 8.5 0RF abiraterone 250 mg tablet 1,000 mg PO HS carvedilol 12.5 mg tablet 12.5 mg PO Q12H lisinopril 20 mg tablet 40 mg PO DAILY chlorthalidone 25 mg tablet 25 mg PO DAILY dorzolamide-timolol 22.3-6.8 mg/mL drops 1 drp EACH EYE Q12H fluoride (sodium) [PreviDent 5000 Plus] 1.1 % cream 1 applic dental Q24H oxycodone 5 mg tablet 5 mg PO Q6H PRN (Reason: pain) prednisone 5 mg tablet 5 mg PO Q12H pravastatin 20 mg tablet 20 mg PO HS Januvia 25 mg tablet 25 mg PO DAILY insulin aspart U-100 [Novolog FlexPen U-100 Insulin] 100 unit/mL (3 mL) insulin pen 1 sliding scale dose SUBCUT TID amoxicillin-pot clavulanate [Augmentin] 500-125 mg Tablet 1 tablet PO Q12H Qty: 10 0RF doxycycline hyclate 100 mg Tablet 100 mg PO Q12H Qty: 9 0RF Follow-up/Referrals: Jeane,Kraig Fernandez MD [Primary Care Provider] - Time of Disposition: 13:39
[2024-07-29] MEDS: ONDANSETRON INJ 4 MG/2 ML VIAL IV PUSH (10:38)
[2024-07-29] MEDS: MAGNESIUM SULF 2 GM/WATER 50ML 2 GM/50 ML BAG IVPB (10:41)
[2024-07-29 10:46] LABS: NT Pro B Type Natriuretic Pept 2190 pg/mL (19.9-100); Troponin I 0.035 ng/mL (0.000-0.034)
--- NOTE | 2024-07-29 10:55 | PC.NURSE ---
Asked pt to give urine sample at this time. Pt states he is unavailable and will use his call light when he has a sample.
[2024-07-29 10:56] LABS: Influenza A QL RT-PCR Negative (Negative); Influenza B QL RT-PCR Negative (Negative); RSV RNA, RT-PCR Negative (Negative); SARS-CoV-2 RNA PCR Negative (Negative)
[2024-07-29 11:32] VITALS: BP 103/66; PULSE 90; RESP 15; O2SAT 95
[2024-07-29 11:48] LABS: Add Urine Microscopic? YES; Appearance Urine Clear (Clear); Bacteria Urine None Seen /hpf; Bilirubin Urine Negative (Negative); Blood Urine Negative (Negative); Color Urine Yellow (Yellow); Glucose Urine UA Negative (Negative); Hyaline Casts Urine Present /lpf; Ketones Urine Trace mg/dL (Negative); Leukocyte Esterase Ur Negative LEU/UL (Negative); Need Manual Microscopic Reviewed; Nitrate Urine Negative (Negative); Protein Urine 1+ mg/dL (Negative); RBC Urine 0-2 /hpf (0-2); Specific Grav Ur 1.013 (1.001-1.035); Squamous Epithelial Cell Urine None Seen /hpf (Few); Urobilinogen Urine 0.2 mg/dL (<2.0); WBC Urine 0-5 /hpf (0-3); pH Urine 5.5 (5.0-9.0)
--- NOTE | 2024-07-29 12:30 | ECG_ITS ---
Test Date: 2024-07-29 12:32:22 Measurements Intervals [place] Rate: 79 P: 0 MI: 0 QRS: 43 QRSD: 98 T: 70 QT: 401 QTc: 462 Interpretive Statements ATRIAL FIBRILLATION LOW QRS VOLTAGE IN LIMB LEADS BASELINE ARTIFACT- II, III, AVR, AVL, AVF ABNORMAL ECG Compared to ECG 07/22/2024 07:38:13 NO SIGNIFICANT CHANGE Electronically Signed On 07-29-2024 14:23:12 CDT by Usman Cochran D.O.
[2024-07-29 12:31] VITALS: BP 99/58; PULSE 80; RESP 23; O2SAT 94
[2024-07-29 13:13] LABS: Troponin I 0.035 ng/mL (0.000-0.034)
[2024-07-29 14:28] VITALS: BP 104/55; PULSE 79; RESP 20; O2SAT 95
== END 2024-07-29 14:31 | disposition home or self-care (01) ==
PROVIDERS: Emergency Provider Emergency Medicine; PCP Internal Medicine
DX: R11.2 Nausea with vomiting, unspecified (principal); Z20.822 Contact with and (suspected) exposure to COVID-19; E11.22 Type 2 diabetes mellitus with diabetic chronic kidney disease; I12.9 Hypertensive chronic kidney disease with stage 1 through stage 4 chronic kidney disease, or unspecified chronic kidney disease; N18.30 Chronic kidney disease, stage 3 unspecified; I48.0 Paroxysmal atrial fibrillation; E78.5 Hyperlipidemia, unspecified; K21.9 Gastro-esophageal reflux disease without esophagitis; F17.210 Nicotine dependence, cigarettes, uncomplicated; Z85.46 Personal history of malignant neoplasm of prostate; Z85.830 Personal history of malignant neoplasm of bone; Z90.79 Acquired absence of other genital organ(s); Z90.49 Acquired absence of other specified parts of digestive tract; Z79.4 Long term (current) use of insulin; Z79.899 Other long term (current) drug therapy; Z79.84 Long term (current) use of oral hypoglycemic drugs
CPT/HCPCS: 36415; 74176; 80053; 81001; 83605; 83690; 83735; 83880; 84484; 85025; 87637; 93005; 96365; 96366; 96375; 99284; J2405; J3475

== ENCOUNTER 2024-07-30 18:50 | Inpatient (IN) | payer MEDICARE, SELFPAY ==
[2024-07-30] VITALS (8 sets, daily range): BP systolic 103–150; BP diastolic 52–57; PULSE 85–102; RESP 20–22; TEMP 36.7; O2SAT 91–97; BMI 29.3
--- NOTE | ~2024-07-30 | XR_ITS ---
Portable chest x-ray Comparison: 07/30/2024 Clinical History: Wheezing Findings: Lungs are clear, without focal consolidation or pleural effusion. Cardiomediastinal silho uette is stable. Bones and soft tissues are unremarkable. Impression: Clear lungs. Reviewed, dictated and finalized at [facility]. Impression: Clear lungs.
--- NOTE | ~2024-07-30 | CT_ITS ---
EXAMINATION: CT diagnostic chest wo con DATE: 07/31/2024 15:04 INDICATION: wheezing, oxygen requirement TECHNIQUE: Computed tomography (CT) of the chest was performed without intravenous contrast. Addition al 3D reconstructions utilizing coronal maximum intensity projection (MIP) were performed. Automated exposure control and iterative reconstruction technique were employed. The dose-length product was 68 2.16 mGy-cm. COMPARISON: Chest CT dated 03/26/[address] abdomen and pelvis dated FINDINGS: There is some respiratory motion at the lung bases. Mild emphysema. Dependent and basilar reticular a nd mild groundglass opacities in both lungs most likely representing atelectasis or mild pulmonary ed douglas with differential including less likely. Minimal mucus in the right lower lobar bronchus. Bilater al small calcified pulmonary nodules consistent with old granulomatous disease. No pleural effusion o r pneumothorax. Heart size is normal. Atherosclerotic coronary artery calcific lesion. No pericardial effusion. Thoracic aorta is normal in caliber. No pathologically enlarged thoracic lymphadenopathy. Visualized upper abdomen is unremarkable. Mild thoracic spondylosis with bridging osteophytes at mult iple levels consistent with diffuse idiopathic skeletal hyperostosis (DISH). Chronic appearing mild a nterior wedging at T6. IMPRESSION: 1. Mild reticular and groundglass opacities in the basilar and dependent lungs with favor atelectasis or mild pulmonary edema over pneumonia. 2. Mild emphysema. Reviewed, dictated and finalized at location A.
--- NOTE | ~2024-07-30 | XR_ITS ---
EXAMINATION: XR chest 1V portable Exam Date/Time: 07/30/2024 18:50 CDT HISTORY: weakness Comparison: 07/21/2024. RESULT: Lines, tubes, and devices: None. Lungs and pleura: Clear. Cardiomediastinal silhouette: Stable. Other: No acute osseous or upper abdominal finding. IMPRESSION: No acute cardiopulmonary process. Reviewed, dictated and finalized at location K.
--- NOTE | 2024-07-30 18:55 | ECG_ITS ---
Test Date: 2024-07-30 19:06:09 Measurements Intervals [place] Rate: 85 P: 0 [place]: 0 QRS: 23 QRSD: 93 T: 57 QT: 366 QTc: 436 Interpretive Statements ATRIAL FIBRILLATION LOW VOLTAGE IN LIMB LEADS BASELINE ARTIFACT- I, II, III, AVL, AVF, V4-V6 ABNORMAL ECG Compared to ECG 07/29/2024 12:32:22 No significant changes Electronically Signed On 07-30-2024 19:42:40 CDT by Usman Cochran D.O.
[2024-07-30 19:13] LABS: Basophils Percent Auto 0.4 % (0.2-1.2); Eosinophils Absolute Auto 0.4 K/mm3 (0-0.3); Hematocrit 33.8 % (42.0-52.0); Hemoglobin 10.4 g/dL (14.0-18.0); Immature Granulocyte Absolute 0.11 K/mm3 (0.00-0.031); Lymphocytes Absolute Auto 1.48 K/mm3 (0.9-3.2); Lymphocytes Percent Auto 13.6 % (18.3-44.2); Mean Corpuscular HGB Conc 30.8 g/dl (32-36); Mean Corpuscular Hemoglobin 26.9 pg (26-34); Mean Corpuscular Volume 87.6 fl (80-100); Mean Platelet Volume 9.8 fl (7.4-10.4); Monocytes Absolute Auto 1.2 K/mm3 (0.1-0.6); Monocytes Percent Auto 10.6 % (2.6-8.5); Neutrophils Absolute Auto 7.6 K/mm3 (1.3-6.7); Neutrophils Percent Auto 70.4 % (45.5-73.1); Platelet Count Result 563 k/mm3 (150-375); Red Blood Count 3.86 M/mm3 (4.6-6.20); Red Cell Distribution Width 13.5 % (11.5-14.5); White Blood Count 10.9 K/mm3 (4.5-10.0)
[2024-07-30 19:24] LABS: Alanine Aminotransferase 22 U/L (6-50); Albumin Level 3.1 g/dL (3.5-5.1); Alkaline Phosphatase 122 U/L (38-126); Anion Gap 11 mmol/L (4-12); Aspartate Amino Transferase 30 U/L (17-59); Bilirubin,Total 0.3 mg/dL (0.2-1.3); Blood Urea Nitrogen 54 mg/dL (9-20); Calcium 8.2 mg/dL (8.4-10.2); Carbon Dioxide 24 mmol/L (22-30); Chloride 96 mmol/L (98-107); Estimated CRCL calculation 16 ml/min; Estimated Glomerular Filt Rate 17; Glucose 161 mg/dL (65-110); Potassium 3.9 mmol/L (3.4-5.0); Sodium 131 mmol/L (137-145)
[2024-07-30] MEDS: SODIUM CHLORIDE 0.9% IV 1,000 ML 999 ML IV CONT (19:24)
[2024-07-30 19:30] LABS: Magnesium 1.9 mg/dL (1.6-2.3)
--- NOTE | 2024-07-30 19:31 | PC.NURSE ---
edp dr. ford vorb urinary catheter placement to monitor accurate output due to patient stating he is having retention at this time.
--- NOTE | 2024-07-30 19:33 | ED.GENADULT ---
HPI - General Adult General Chief complaint: Weakness Stated complaint: WEAKNESS, N/V/D Time Seen by Provider: 07/30/24 19:10 History of Present Illness HPI narrative: Patient is an 83-year-old male who presents to the emergency department this evening complaining of generalized weakness and diarrhea. Patient states that he was seen our facility yesterday for similar symptoms and blood work and a CT abdomen and pelvis revealed no acute process and patient was sent home. Today states that the patient had very large amounts of diarrhea in the morning and was feeling extremely weak, too weak to even get out of the toilet seat. EMS was called to the house and patient's systolic blood pressure was in the 80s. Patient was encouraged to come to the emergency department for further evaluation, however, patient declined. was able to get the patient's niece to convince him to come into the emergency department for further evaluation given his generalized weakness. also states that patient was recently admitted to our hospital last week for cellulitis and had antibiotics and was discharged 2 days later. is concerned that the patient is very dehydrated as she states that since yesterday he has only Peed very little and it is very dark. Patient is p.o. intake is also decrease given his nausea. He is currently denying any chest pain, shortness of breath, abdominal pain, any dysuria hematuria, any fevers or chills at home. No additional symptoms or concerns at this time. Related Data Home Medications ?Medication ?Instructions ?Recorded ?Confirmed ?Last Taken ?Type insulin aspart U-100 100 unit/mL 8 unit subcut TID 06/19/22 07/21/24 07/20/24 History (3 mL) subcutaneous pen (Novolog FlexPen U-100 Insulin aspart) insulin glargine 100 unit/mL (3 28 unit subcut QHS 06/19/22 07/21/24 08/02/23 History mL) subcutaneous pen (Lantus Solostar U-100 Insulin) pantoprazole 40 mg tablet,delayed 40 mg PO DAILY 06/19/22 07/21/24 08/02/23 History release abiraterone 250 mg tablet 1,000 mg PO HS 03/26/24 07/21/24 07/20/24 History carvedilol 12.5 mg tablet 12.5 mg PO Q12H 03/26/24 07/21/24 Unknown History chlorthalidone 25 mg tablet 25 mg PO DAILY 03/26/24 07/21/24 Unknown History dorzolamide 22.3 mg-timolol 6.8 1 drp EACH EYE Q12H 03/26/24 07/21/24 Unknown History mg/mL eye drops fluoride (sodium) 1.1 % dental 1 applic dental Q24H 03/26/24 07/21/24 07/20/24 History cream (PreviDent 5000 Plus) insulin aspart U-100 100 unit/mL 1 sliding scale dose subcut TID 03/26/24 07/21/24 Unknown History (3 mL) subcutaneous pen (Novolog FlexPen U-100 Insulin aspart) lisinopril 20 mg tablet 40 mg PO DAILY 03/26/24 07/21/24 07/20/24 History oxycodone 5 mg tablet 5 mg PO Q6H PRN pain 03/26/24 07/21/24 07/21/24 History pravastatin 20 mg tablet 20 mg PO HS 03/26/24 07/21/24 07/20/24 History prednisone 5 mg tablet 5 mg PO Q12H 03/26/24 07/21/24 07/20/24 History sitagliptin phosphate 25 mg tablet 25 mg PO DAILY 03/26/24 07/21/24 07/20/24 History (Kendra) Allergies Allergy/AdvReac Type Severity Reaction Status Date / Time No Known Drug Allergies Allergy Unknown Other Verified 07/29/24 09:30 Review of Systems Review of Systems: All systems are reviewed and are negative unless stated otherwise in the HPI. 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 He smokes 1-2 cigarettes per day most days. He denies marijuana use or other drug use. He drinks 1-2 alcoholic drinks per week. He has cats. Code status -full Surrogate decision maker - Years smoked: 50 Smoking status: Current every day smoker Tobacco type: cigarettes Second hand tobacco smoke exposure: Yes Additional smoking assessment comments: marijuana daily and regular cigarettes smokes intermittently Alcohol intake: current Drinks per week: 4 Substance use: current Substance use type: marijuana Other substance usage details: smoke once a day Last use: 07/30/2023 Do You Feel Safe in your Home?: Yes Lack of Transportation: No Lack of Food: Never True Current Housing: I Have Housing Concerned About Future Housing: No Difficulty Paying Gas/Electric Bills: No Difficulty Paying for Meds: No Currently Unemployed: No Education: Decline to Answer Difficulty w/ Childcare or Family Care: No Spiritual care concerns: No Exam Narrative: General: Alert, awake, afebrile, in no acute distress. HEENT: PERRL, no rhinorrhea, no post nasal drip, oropharynx clear. Neck: Trachea midline, no JVD, no lymphadenopathy. Cardiovascular: Regular rate and rhythm, no murmurs, rubs or gallops, no peripheral edema. Respiratory: Clear to auscultation bilaterally, no tachypnea, no wheezing, no rhonchi, no rubs, no respiratory distress. Abdomen: Soft, nontender, nondistended, no rebound, no guarding, no peritoneal signs. Musculoskeletal: No joint swelling or deformity, normal muscle tone. Skin: No rashes or petechia, no signs of infection. Psychiatric: Alert and oriented, normal behavior and judgment for situation. Neurological: Alert and oriented to person, place, and time. Follows all commands. No focal deficits, speech is clear and fluent. Course Vital Signs Vital signs: Vital Signs Temperature 98.0 F 07/30/24 18:56 Pulse Rate 85 07/30/24 18:56 Respiratory Rate 20 07/30/24 18:56 Blood Pressure 127/52 L 07/30/24 18:56 Pulse Oximetry 93 07/30/24 18:56 Oxygen Delivery Room Air 07/30/24 18:56 Temperature 98.0 F 07/30/24 18:56 Pulse Rate 86 07/30/24 19:48 Respiratory Rate 22 H 04/20/25 19:48 Blood Pressure 103/53 L 07/30/24 19:48 Pulse Oximetry 94 07/30/24 19:48 Oxygen Delivery Room Air 07/30/24 19:26 Medical Decision Making MDM Narrative Medical decision making narrative: The patient was evaluated by myself in the emergency department. History is obtained from patient who is an independent historian and physical exam was performed. External medical records were reviewed at this time. IV was established and pertinent tests were ordered. Patient was administered a 1 L IV fluid bolus with normal saline and continued on maintenance at a rate of 100 cc/hour. EKG was obtained which revealed atrial fibrillation rate of 85 beats per minute, no evidence of acute ischemia. EKG was independently interpreted by me and is currently pending official cardiology read. Laboratory results obtained revealing an acute kidney injury with a BUN of 54 and a creatinine of 3.5 which is higher than patient's baseline of 2.5, otherwise unremarkable. Imaging studies obtained included CXR which was independently interpreted by me revealing no acute cardiopulmonary process, which is pending final radiology interpretation. Differential diagnosis considerations include acute kidney injury, dehydration, electrolyte derangements, acute viral syndrome. Comorbidities impacting this visit include none. I have evaluated and discussed social determinants of health with the patient that could potentially impact subsequent diagnosis and treatment plans. On repeat assessment of the patient, reevaluation revealed that the patient is doing well and is in no acute distress. Patient symptoms have improved since he arrived to our emergency department. Repeat vital signs were all reviewed and noted to be stable. Differential diagnosis and treatment plan were discussed with the patient at bedside. Patient agrees with discussion and after shared medical decision making agrees with discharge. All questions were answered to the patient's satisfaction. Case was discussed with the on-call hospitalist Dr. Corona at 1944 who accepted admission. PT/OT orders were placed. Vital Signs Vital Signs: Vital Signs Temperature 98.0 F 07/30/24 18:56 Pulse Rate 85 07/30/24 18:56 Respiratory Rate 20 07/30/24 18:56 Blood Pressure 127/52 L 07/30/24 18:56 Pulse Oximetry 93 07/30/24 18:56 Oxygen Delivery Room Air 07/30/24 18:56 Temperature 98.0 F 07/30/24 18:56 Pulse Rate 86 04/20/25 19:48 Respiratory Rate 22 H 07/30/24 19:48 Blood Pressure 103/53 L 07/30/24 19:48 Pulse Oximetry 94 07/30/24 19:48 Oxygen Delivery Room Air 07/30/24 19:26 Lab Data 07/30/24 19:07 07/30/24 19:07 Labs: Lab Results 07/30/24 07/30/24 Range/Units 19:07 19:46 WBC 10.9 H (4.5-10.0) K/mm3 RBC 3.86 L (4.6-6.20) M/mm3 Hgb 10.4 L (14.0-18.0) g/dL Hct 33.8 L (42.0-52.0) % MCV 87.6 (80-100) fl MCH 26.9 (26-34) pg MCHC 30.8 L (32-36) g/dl RDW 13.5 (11.5-14.5) % Plt Count 563 H (150-375) k/mm3 MPV 9.8 (7.4-10.4) fl Immature Gran % (Auto) 1.0 H (0-0.5) % Neut % (Auto) 70.4 (45.5-73.1) % Lymph % (Auto) 13.6 L (18.3-44.2) % [place] % (Auto) 10.6 H (2.6-8.5) % Eos % (Auto) 4.0 (0-4.4) % Baso % (Auto) 0.4 (0.2-1.2) % Lymph # (Auto) 1.48 (0.9-3.2) K/mm3 [place] # (Auto) 1.2 H (0.1-0.6) K/mm3 Eos # (Auto) 0.4 H (0-0.3) K/mm3 Baso # (Auto) 0.0 (0.0-0.1) K/mm3 Abs Immat Gran (auto) 0.11 H (0.00-0.031) K/mm3 Absolute Neuts (auto) 7.6 H (1.3-6.7) K/mm3 Absolute Nucleated RBC 0.000 (0.0-0.012) K/mm3 Nucleated RBC % 0.0 (0.0-0.2) % Sodium 131 L (137-145) mmol/L Potassium 3.9 (3.4-5.0) mmol/L Chloride 96 L (98-107) mmol/L Carbon Dioxide 24 (22-30) mmol/L Anion Gap 11 (4-12) mmol/L BUN 54 H (9-20) mg/dL Creatinine 3.51 H (0.7-1.3) mg/dL Estim Creat Clear Calc 16 ml/min Estimated GFR 17 L (59 - ) Glucose 161 H (65-110) mg/dL Calcium 8.2 L (8.4-10.2) mg/dL Magnesium 1.9 (1.6-2.3) mg/dL Total Bilirubin 0.3 (0.2-1.3) mg/dL AST 30 (17-59) U/L ALT 22 (6-50) U/L Alkaline Phosphatase 122 (38-126) U/L Total Protein 6.0 L (6.3-8.2) g/dL Albumin 3.1 L (3.5-5.1) g/dL Urine Color Pending Urine Appearance Pending Urine pH Pending Ur Specific [place] Pending Urine Protein Pending Urine Glucose (UA) Pending Urine Ketones Pending Ur Blood (Man) Pending Urine Nitrate Pending Urine Bilirubin Pending Urine Urobilinogen Pending Leukocyte Esterase Rfl Pending Discharge Plan Discharge Clinical Impression: Acute dehydration, Acute kidney injury Patient Disposition: Still a Patient Condition: Improved Patient Language: Georgian Prescriptions: No Action pantoprazole 40 mg tablet,delayed release (DR/EC) 40 mg PO DAILY insulin aspart U-100 [Novolog FlexPen U-100 Insulin] 100 unit/mL (3 mL) insulin pen 8 unit SUBCUT TID Protocol: Insulin Corrective Low-Dose Condition: glucose < 70 mg/dl Dose/Route: Follow Hypoglycemia Order Condition: glucose 70-200 mg/dl Dose/Route: No additional insulin Condition: glucose 201-250 mg/dl Dose/Route: 2 units sub-Q Condition: glucose 251-300 mg/dl Dose/Route: 3 units sub-Q Condition: glucose 301-350 mg/dl Dose/Route: 4 units sub-Q Condition: glucose 351-400 mg/dl Dose/Route: 5 units sub-Q Condition: glucose > 400 mg/dl Dose/Route: Call Protocol Text: *No Correction Dose at Bedtime* Rx Instructions: Pt states he takes for glucose level 150 or higher. pt takes this intermittently insulin glargine [Lantus Solostar U-100 Insulin] 100 unit/mL (3 mL) insulin pen 28 unit subcut QHS Rx Instructions: Pt states he holds medication if glucose levels under 140. albuterol sulfate 90 mcg/actuation HFA aerosol inhaler 2 puff inhalation QID PRN (Reason: shortness of breath or wheezing) Qty: 8.5 2RF albuterol sulfate [Ventolin HFA] 90 mcg/actuation HFA aerosol inhaler 1 inh inhalation QID Qty: 8.5 0RF abiraterone 250 mg tablet 1,000 mg PO HS carvedilol 12.5 mg tablet 12.5 mg PO Q12H lisinopril 20 mg tablet 40 mg PO DAILY chlorthalidone 25 mg tablet 25 mg PO DAILY dorzolamide-timolol 22.3-6.8 mg/mL drops 1 drp EACH EYE Q12H fluoride (sodium) [PreviDent 5000 Plus] 1.1 % cream 1 applic dental Q24H oxycodone 5 mg tablet 5 mg PO Q6H PRN (Reason: pain) prednisone 5 mg tablet 5 mg PO Q12H pravastatin 20 mg tablet 20 mg PO HS Januvia 25 mg tablet 25 mg PO DAILY insulin aspart U-100 [Novolog FlexPen U-100 Insulin] 100 unit/mL (3 mL) insulin pen 1 sliding scale dose SUBCUT TID amoxicillin-pot clavulanate [Augmentin] 500-125 mg Tablet 1 tablet PO Q12H Qty: 10 0RF doxycycline hyclate 100 mg Tablet 100 mg PO Q12H Qty: 9 0RF ondansetron 4 mg tablet,disintegrating 4 mg PO Q8H PRN (Reason: nausea and vomiting) Qty: 10 0RF Follow-up/Referrals: Jeane,Kraig Fernandez MD [Primary Care Provider] - Time of Disposition: 19:48
--- OUTSIDE RECORDS SUMMARY | 2024-07-30 19:50 | XMS_ITS | Encounter Summary ---
Author Organization [facility] Address [address] [place] [address] Phone Care Team Providers Care Transportation Maintenance Supervisor Name Role Phone Kraig Ching MD Primary Care Provider [phone] Gautam Cope MD Unavailable Tramaine Roe MD Unavailable [phone] Sukhwinder Uribe MD Unavailable [phone] Shay Guillermo MD Unavailable [phone] Marsha Landis RN Unavailable Unavailab Clarissa Harry RN Unavailable [phone] Encounter Details Date Type Department Care [...] on file 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 Gender Identity Not on file Sexual Orientation Not on file documented as of this encounter Functional Status documented as of this encounter Plan of Treatment Scheduled Orders Name Type Priority Associated Diagnoses Orde r Schedule CARDIOLOGY DOCUMENT SCAN Cardiac Services Ordered: 03/21/2023 documented as of this encounter Visit Diagnoses Not on filedocumented in this encounter Care Teams Transportation Maintenance Supervisor Relationship Specialty Start Date End Date Kraig Ching MD [address] [facility] [address] [place] [address] PCP - General 07/10/16 Gautam Cope MD [address] [facility] [address] [place] [address] Medical Oncologist/Dike Supervisor Medical Oncology 08/18/18 Tramaine Roe MD [address] [facility] [address] [place] [address] Referring Physician Urology 08/18/18 Sukhwinder Uribe MD [address] [facility] [address] [place] [address] Consulting Physician Urology 08/18/18 Shay Guillermo MD [address] [facility] [address] [place] [address] Referring Physician Urology 08/18/18 Marsha Landis RN Registered Nurse 11/17/18 Clarissa Luna RN [address] [place] [address] [address] [place] [address] Billet Cutter 04/04/24 04/26/24 documented as of this encounter
--- OUTSIDE RECORDS SUMMARY | 2024-07-30 19:50 | XMS_ITS | Encounter Summary ---
Author Organization [facility] Healthcare Address [address] [place] [address] Care Team Providers Care Yacht Hand Name Role Phone Kraig Ching MD Primary Care Provider [phone] Gautam Cope MD Unavailable Tramaine Roe MD Unavailable [phone] Sukhwinder Uribe MD Unavailable [phone] Shay Guillermo MD Unavailable [phone] Marsha Landis RN Unavailable Unavailab le Encounter Details Date Type Department Care Team (Late st Contact Info) Description 07/21/2024 Results Follow-Up [facility] at [address] [address] Fadi Corrales NP [address] [place] [address] [address] [place] [address] Social History Tobacco Use Types Packs/Day Years Used Date Smoking Tobacco: Former Cigarettes 0.3 52 1 958 - 2009 Passive Smoke Exposure: Past Smokeless Tobacco: Never Comments:Smoking History Pac ks/day: 10 Cigarettes Alcohol Use Standard Drinks/Week Comments Yes 0 (1 standard drink = 0.6 oz pur e alcohol) Occasional glass of wine. [facility] Utilities Answer Date Recorded In the past 12 months has e [place], gas, oil, or water company threatened to [...] often do you attend chur ch or episcopalian services? 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 Author ZAK General Goal - Patient establishes care with [facility] ACO Care Management On track(2023 1:22 PM EDUCATOR SENIOR CLINICAL) No Clarissa Luna RN Note: Problem: Lack of [facility] communication Interventions: - Provide coordination between [facility] company and patient. - Ensure [facility] has appropriate referral and orders to establish care with patient. - Follow up with patient to ensure initial visit was completed by [facility] and that a [facility] plan has been started. ZAK General Goal - Patient schedules and keeps appointments with all recommended providers ACO Care Management Improving( 1:22 PM EDUCATOR SENIOR CLINICAL) No Clarissa Luna RN Note: Problem: Potential [...] on filedocumented in this encounter Care Teams Yacht Hand Relationship Specialty Start Date End Date Kraig Ching MD [address] [facility] [address] [place] [address] PCP - General 07/10/16 Gautam Cope MD [address] [facility] [address] [place] [address] Medical Oncologist/Career Services Representative Medical Oncology 08/18/18 Tramaine Roe MD [address] [facility] [address] [place] [address] Referring Physician Urology 08/18/18 Sukhwinder Uribe MD [address] [facility] [address] [place] [address] Consulting Physician Urology 08/18/18 Shay Guillermo MD [address] [facility] [address] [place] [address] Referring Physician Urology 08/18/18 Marsha Landis, RN Registered Nurse 11/17/18 documented as of this encounter
--- OUTSIDE RECORDS SUMMARY | 2024-07-30 19:50 | XMS_ITS | Encounter Summary ---
Author Organization [facility] Address [address] [place] [address] Phone Care Team Providers Care Landscape Painter Name Role Phone Kraig Ching MD Primary Care Provider Gautam Cope MD Unavailable Tramaine Roe MD Unavailable [phone] Sukhwinder Uribe MD Unavailable [phone] Shay Guillermo MD Unavailable [phone] Marsha Landis RN Unavailable Unavailab Ilene Kaur RN Unavailable [phone] Clarissa Luna RN Unavailable [phone] Encounter Details Date Type Department Care Team (Late st Contact Info) Description 12/06/2018 Telephone [facility] Oncology [address] [facility] Advanced Medicine 7th [place] [address] Salena Bryan NP [address] [place] [address] Social History Tobacco Use Types Packs/Day Years [...] on file 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 Gender Identity Not on file Sexual Orientation Not on file documented as of this encounter Plan of Treatment Not on file documented as of this encounter Visit Diagnoses Not on filedocumented in this encounter Care Teams Landscape Painter Relationship Specialty Start Date End Date Kraig Ching MD [address] [place] [address] PCP - General 07/10/16 Gautam Cope MD [address] [place] [address] Medical Oncologist/Pan Devulcanizer Helper Medical Oncology 08/18/18 Tramaine Roe MD [address] [place] [address] Referring Physician Urology 08/18/18 Sukhwinder Uribe MD [address] [place] [address] Consulting Physician Urology 08/18/18 Shay Guillermo MD [address] [place] [address] Referring Physician Urology 08/18/18 Marsha Landis, RN Registered Nurse 11/17/18 Ilene Fragoso RN [address] [facility] [address] [place] [address] Addresser 12/23/18 11/01/19 Clarissa Luna RN [address] [facility] [address] [place] [address] Addresser 04/04/24 04/26/24 documented as of this encounter
--- OUTSIDE RECORDS SUMMARY | 2024-07-30 19:50 | XMS_ITS | Clinical Summary ---
Author Organization [facility] Address [address] [place] [address] Care Team Providers Care Rn Perinatal Name Role Phone Unavailable Primary Care Provider [...]
--- OUTSIDE RECORDS SUMMARY | 2024-07-30 19:50 | XMS_ITS | Encounter Summary ---
Author Organization [facility] Address [address] [place] [address] Phone Care Team Providers Care Rivet Heater Gas Name Role Phone Kraig Ching MD Primary Care Provider [phone] Gautam Cope MD Unavailable Tramaine Roe MD Unavailable [phone] Sukhwinder Uribe MD Unavailable [phone] Shay Guillermo MD Unavailable [phone] Marsha Lnadis RN Unavailable Unavailab Clarissa Harry RN Unavailable [phone] Encounter Details Date Type Department Care Team (Late st Contact Info) Description 12/09/2021 Telephone [facility] Oncology [address] [facility] Advanced Medicine 7th [place] [address] [place] [address] Muna Saleem RN Social History [...] on file 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 Gender Identity Not on file Sexual Orientation Not on file documented as of this encounter Functional Status documented as of this encounter Plan of Treatment Not on file documented as of this encounter Visit Diagnoses Not on filedocumented in this encounter Care Teams Rivet Heater Gas Relationship Specialty Start Date End Date Kraig Ching MD [address] [place] [address] PCP - General 07/10/16 Gautam Cope MD [address] [place] [address] Medical Oncologist/Water/Wastewater Project Manager Medical Oncology 08/18/18 Tramaine Roe MD [address] [place] [address] Referring Physician Urology 08/18/18 Sukhwinder Uribe MD [address] [place] [address] Consulting Physician Urology 08/18/18 Shay Guillermo MD [address] [place] [address] Referring Physician Urology 08/18/18 Marsha Landis, RN Registered Nurse 11/17/18 Clarissa Luna RN [address] [place] [address] [address] [place] [address] Medical Laboratory Technical Officer 04/04/24 04/26/24 documented as of this encounter
--- OUTSIDE RECORDS SUMMARY | 2024-07-30 19:50 | XMS_ITS | Referral Summary ---
Author Organization [facility] Address [address] [place] [address] Care Team Providers Care Data Warehousing Manager Name Role Phone Kraig Ching MD Primary Care Provider [phone] Gautam Cope MD Unavailable Tramaine Roe MD Unavailable [phone] Sukhwinder Uribe MD Unavailable Shay Guillermo MD Unavailable Marsha Landis RN Unavailable Unavailab le Encounters Date Type Department Care Team Description 07/24/2024 Telephone [facility] Oncology [facility] [address] [place] [address] Gautam Cope MD 07/22/2024 Orders Only [facility] Health Information Management [address] [place] [address] Scanning, Provider 07/21/2024 Results Follow-Up [facility] at [address] [address] Fadi Corrales NP 07/19/2024 7:45 PM CDT - 07/19/2024 11:59 PM CDT Hospital Encounter [address] [address] Urinary frequency Discharge Disposition: Discharge to home or self care 07/19/2024 2:00 PM CDT Office Visit [facility] at [address] [address] Clau Childers PA Urinary frequency (Primary Dx); Leukocytosis, unspecified type 07/18/2024 Patient Self-Triage [facility] [address] [place] [address] Mychart, Generic Provider 07/18/2024 1:00 PM CDT Office Visit [facility] Oncology [address] [facility] Floor 5 [place] [phone] Gautam Cope MD Prostate cancer (HCC) (Primary Dx) 07/18/2024 12:00 PM CDT Lab [facility] - Lab Collection [address] [facility] Floor 5 [place] [address] Prostate cancer (HCC) 07/18/2024 1:45 PM CDT Infusion [facility] - Infusion [address] [facility] Floor 6 [place] [address] Prostate cancer (HCC) (Primary Dx) 07/01/2024 Orders Only [facility] Health Information Management [address] [place] [address] Scanning, Provider 06/14/2024 6:15 PM TAG MAKER Lab [facility] [address] [place] [phone] GABRIELA (acute kidney injury) 06/14/2024 3:00 PM TAG MAKER Office Visit [facility] Nephrology [address] [facility] 5th [place] [address] [place] [phone] Lin Guerrero MD Chronic kidney disease, stage 3b (HCC) (Primary Dx); GABRIELA (acute kidney injury); Hypertension, essential; Secondary hyperparathyroidism of renal origin 06/08/2024 12:00 PM TAG MAKER Lab [facility] ([facility]) [address] [place] [phone] 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 chronic kidney disease (HCC); Hypertension, essential; Secondary hyperparathyroidism of renal origin; Stage 3 chronic kidney disease, unspecified whether stage 3a or 3b CKD (HCC); Primary hypertension; Vitamin D deficiency; Type 2 diabetes mellitus with stage 3a chronic kidney disease, with long-term current use of insulin (HCC); Fatigue, unspecified type; GABRIELA (acute kidney injury) 06/08/2024 9:45 AM TAG MAKER Office Visit [facility] [address] [facility] [address] [place] [phone] Kraig Ching MD Hypertension, essential (Primary Dx); Prostate cancer (HCC); Type 2 diabetes mellitus with stage 3b chronic kidney disease, with long-term current use of insulin (HCC); Stage 3b chronic kidney disease (HCC); Hyperlipidemia, unspecified hyperlipidemia type 05/24/2024 Orders Only [facility] Nephrology [facility] 5th [place] [address] [place] [phone] Lin Guerrero MD Anemia in stage 3b [...] type; GABRIELA (acute kidney injury) 05/02/2024 Telephone [facility] [address] [facility] [address] [place] [phone] Kraig Ching MD Medical Question/Miscellaneous from [...] 05/30/2024 Assessment & Plan (06/08/2024 4:46 AM TAG MAKER): Continue current regimen.Limit nephrotoxins.Reviewed creatinine. Avoid [...] 03/08/2023 Assessment & Plan (06/08/2024 4:46 AM TAG MAKER): Hypertension is controlled. Continue current regimen. Assessment & Plan (10/05/2023 12:54 PM CDT): Hypertension is controlled. Decrease carvedilol to 12.5 mg. Assessment & Plan (03/08/2023 7:11 AM TAG MAKER): Hypertension is controlled. Continue current regimen. 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 Avoid NSAIDS. Assessment & Plan (10/05/2023 5:50 AM CDT): Continue current regimen.Limit nephrotoxins.Reviewed creatinine. Avoid NSAIDS. Assessment & Plan (03/08/2023 7:12 AM TAG MAKER): Continue current regimen.Limit nephrotoxins.Reviewed creatinine. Avoid NSAIDS. CKD (chronic kidney disease) 03/08/2022 Assessment & Plan (06/08/2024 4:45 AM TAG MAKER): Limit nephrotoxins. Monitor creatinine. Avoid NSAIDS.Follow with Nephrology. Anemia in stage 3b chronic kidney disease 2021 Gastroesophageal reflux disease 04/08/2021 Assessment & Plan (03/08/2023 11:17 AM TAG MAKER): Reviewed dietary modifications. Continue PPI. Assessment & Plan (08/18/2022 6:36 AM CDT): Reviewed dietary modifications. Continue PPI. Assessment & Plan (02/12/2022 6:03 AM CDT): Reviewed dietary modifications. Continue PPI. Assessment & Plan (04/08/2021 5:55 AM TAG MAKER): Reviewed dietary modifications. Continue PPI. 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 Continue home PT exercises. Advised using a walker. Assessment & Plan (08/18/2022 11:47 AM CDT): Continue oxycodone. Continue home PT exercises. Advised using a walker. Assessment & Plan (02/12/2022 11:41 AM CDT): Continue oxycodone. Continue home PT exercises. A prescription for a walker. Assessment & Plan (04/08/2021 5:55 AM TAG MAKER): Continue oxycodone. Continue home PT exercises. Continue walker. Assessment & Plan (12/26/2020 10:48 AM CDT): Continue oxycodone. Script for walker. Assessment & Plan (09/26/2020 11:29 AM CDT): Continue ROM exercises and follow with Pain Management. Refill oxycodone as needed. Prostate cancer 09/06/2018 Assessment & Plan (06/08/2024 4:46 AM TAG MAKER): Follow with Oncology. Continue Zytiga. Assessment [...] 01/25/2018 Assessment & Plan (03/07/2018 6:54 AM TAG MAKER): Hypertension is controlled. Continue current regimen. [...] creatinine. Assessment & Plan (04/08/2021 5:54 AM TAG MAKER): Hypertension is controlled. Continue current regimen.Limit [...] NSAIDS. Assessment & Plan (03/07/2018 6:55 AM TAG MAKER): Hypertension is controlled. Continue current regimen. Limit nephrotoxins. Monitor creatinine. Avoid NSAIDS. Assessment & Plan (11/25/2017 7:09 AM CDT): Limit nephrotoxins. Monitor creatinine. Avoid NSAIDS. Duodenal ulcer 11/25/2017 Assessment & Plan (11/25/2017 10:16 AM CDT): Reviewed GI note . Continue pantoprazole. Avoid NSAIDS. Refer for EGD. PAF (paroxysmal atrial fibrillation) 10/22/2017 Assessment & Plan (03/07/2018 6:54 AM TAG MAKER): Continue rate control. Continue anticoagualtion. Anticipate [...] NSAIDS. Assessment & Plan (03/07/2018 6:55 AM TAG MAKER): Limit nephrotoxins. Monitor creatinine. Avoid NSAIDS. [...] diet. Assessment & Plan (04/08/2021 10:17 AM TAG MAKER): Reviewed HgBA1C elevated at 10.6 on [...] therapy. Assessment & Plan (03/07/2018 6:57 AM TAG MAKER): Continue pravastatin. He had myalgias on [...] diet. Assessment & Plan (03/02/2017 6:53 AM TAG MAKER): Hypertension is controlled. Continue current regimen. Reviewed low sodium diet. Assessment & Plan (01/15/2017 6:44 AM CDT): Reviewed proper diet. Continue statin therapy. Hyperlipidemia 01/12/2012 Assessment & Plan (06/08/2024 4:46 AM TAG MAKER): Continue pravastatin. Order lipid panel at [...] 05/28/2023 Assessment & Plan (03/08/2023 11:40 AM TAG MAKER): Agree with cataract surgery. He has [...] 08/30/2017 Assessment & Plan (03/02/2017 10:48 AM TAG MAKER): Mood is improved. Monitor off medication. [...] 200. Assessment & Plan (03/07/2018 6:56 AM TAG MAKER): Continue current regimen. Advised annual eye [...] 01/17/2019 Influenza, Unspecified 01/17/2019(Deferred: Daisy ent Refused) [place] (J&J) SARS-CoV-2 Vaccination 06/14/2020, 06/14/2020 Pfizer SARS-CoV-2 [...] pur e alcohol) Occasional glass of wine. Kauliities Answer Date Recorded In the past 12 months has [employer], oil, or water [employer] threatened to shut off services in your [...] week 04/04/2024 How often do you attend [facility] or rastafari services? Never 04/04/2024 Do you belong to any clubs o r organizations such as sabianism groups, unions, fraternal or athletic groups, or [...] any time in the past 12 m [facility], were you homeless or living in a longterm (including now)? No 04/04/2024 Personal Safety Answer Date Recorded Have you ever been in or are you currently in a harmful physical or emotional relationship or is someone making you feel afraid or unsafe? Denies 06/09/2023 Sex and Gender Information Value Date Recorded Sex Assigned at Not on file Legal Sex Male 4:46 PM TAG MAKER Gender Identity Not on file Sexual [...] cm (5' 9 ) 06/14/2024 2:58 PM TAG MAKER Body Mass Index 29.98 06/14/2024 2:58 PM TAG MAKER Plan of Treatment Not on file Goals Goal Patient Goal Type Associated Problems Recent Progress Patient-Stated? Author ZAK General Goal - Patient establishes care with [facility] ACO Care Management On track(2023 1:22 PM TAG MAKER) No Clarissa Luna RN Note: Problem: Lack of [facility] communication Interventions: - Provide coordination between [facility] company and patient. - Ensure [facility] has appropriate referral and orders to establish care with patient. - Follow up with patient to ensure initial visit was completed by [facility] and that a [facility] plan has been started. ZAK General Goal - Patient schedules and keeps appointments with all recommended providers ACO Care Management Improving( 1:22 PM TAG MAKER) No Clarissa Luna RN Note: Problem: Potential [...] medication regimen. Medical Devices Implanted Type Area Broadcast Director Operations Device Identifier Shelf Expiration Date Model / Serial / Lot [employer] Lens Iol Cna0t0.195 Clare[employer] Autonom Cna0t0.195 - [id number] - [id number] Implanted:Qty: 1 on 06/09/2023 by Higinio Connolly MD at [facility] Lens Right: Eye [employer] [id number] 10/27/2025 CNA0T0.19 5 / [id number] / [employer] Lens Iol Cna0t0.200 [employer] Autonom Cna0t0.200 - [id number] - [id number] Implanted:Qty: 1 on 05/19/2023 by Higinio Connolly MD at [facility] Left: Eye [employer] [id number] 10/06/2025 CNA0T0.20 0 / [id number] / Procedures Procedure Name Priority Date/Time [...] AM CDT EGFR Routine 06/14/2024 3:48 PM TAG MAKER GABIRELA (acute kidney injury) RENAL FUNCTION PANEL Routine 06/14/2024 3:48 PM TAG MAKER GABRIELA (acute kidney injury) URINALYSIS AND REFLEX TO MICROSCOPIC Routine 06/08/2024 10:47 AM TAG MAKER Anemia in stage 3b chronic kidney disease (HCC) Hypertension, essential Secondary hyperparathyroidism of renal origin Stage 3 chronic kidney disease, unspecified whether stage 3a or 3b CKD (HCC) Primary hypertension Vitamin D deficiency Type 2 diabetes mellitus with stage 3a chronic kidney disease, with long-term current use of insulin (HCC) Fatigue, unspecified type GABRIELA (acute kidney injury) EGFR Routine 06/08/2024 10:44 AM TAG MAKER Anemia in stage 3b chronic kidney [...] injury) DIFFERENTIAL AUTO Routine 06/08/2024 10:44 AM TAG MAKER Anemia in stage 3b chronic kidney [...] RENAL FUNCTION PANEL Routine 06/08/2024 10:44 AM TAG MAKER Anemia in stage 3b chronic kidney [...] D 25 HYDROXY Routine 06/08/2024 10:44 AM TAG MAKER Anemia in stage 3b chronic kidney [...] WITH AUTO DIFFERENTIAL Routine 06/08/2024 10:44 AM TAG MAKER Anemia in stage 3b chronic kidney disease (HCC) Hypertension, essential Secondary hyperparathyroidism of renal origin Stage 3 chronic kidney disease, unspecified whether stage 3a or 3b CKD (HCC) Primary hypertension Vitamin D deficiency Type 2 diabetes mellitus with stage 3a chronic kidney disease, with long-term current use of insulin (HCC) Fatigue, unspecified type GABRIELA (acute kidney injury) PTH Routine 06/08/2024 10:44 AM TAG MAKER Anemia in stage 3b chronic kidney [...] RATIO, URINE, RANDOM Routine 06/08/2024 10:44 AM TAG MAKER Anemia in stage 3b chronic kidney [...] injury) LIPID PANEL Routine 03/08/2023 11:55 AM TAG MAKER Hyperlipidemia, unspecified hyperlipidemia type ALBUMIN CREATININE [...] Large Ketones, ur, POC Negative Negative Specific Rentz, POC 1.015 1.003 - 1.030 Blood, ur, POC Hemolyzed, trace(A) Negative pH, ur, POC 6.0 5.0 - 8.0 Protein, ur, POC 30.(A) Negative Urobilinogen, urine, POC 0.2 0.2 - 1.0 mg/dL Nitrite, ur, POC Negative Negative Leukocytes, ur, POC Negative Negative Lot Number [id number] Urine 07/19/2024 2:16 PM CDT Result [facility] POINT OF CARE TEST ORDER ALAN Final Result * Urine culture Urine, clean voided (07/19/2024 12:00 PM CDT) Report Final Report: No growth Comment:Testing performed by : [facility], [address] [facility] [place] [address] Urine, clean voided 07/19/2024 12:00 PM CDT 07/20/2024 2:19 AM CDT Narrative [facility] - 07/21/2024 7:38 AM CDT Testing performed by [facility] Microbiology Laboratory ([phone]) Result [facility] LAB MICROBIOLOGY - GENER AL ORDERABLES Final Result [facility] [address] [address] Department [place] [address] * (ABNORMAL) eGFR (07/18/2024 12:07 PM CDT) [facility] eGFR 23(L) >=60 mL/min/1. 73 m2 Comment: [...] Final Resul t [facility] [address] [facility] Department [place] [address] * (ABNORMAL) Differential, auto (07/18/2024 12:07 PM CDT) [facility] Neutrophil abs 17.55(H) 1.50 - 6.50 K/cumm Comment:Testing performed by : [facility] Heme Lab, [address] [place] [phone] Lymphocyte abs 0.96 0.80 - 3.30 K/cumm MERLINE PERDOMO Comment:Testing performed by : [facility] Heme [facility], [address] [place] [phone] Monocyte abs 1.48(H) 0.20 - 0.80 K/cumm [facility] Comment:Testing performed by : [facility]e [facility], [address] [place] [phone] Eosinophil abs 0.06 0.00 - 0.50 K/cumm [facility] Comment:Testing performed by : [facility] Heme [facility], [address] [place] [phone] Basophil abs 0.03 0.00 - 0.10 K/cumm [facility] Comment:Testing performed by : [facility] Heme [facility], [address] [place] [phone] Neutrophil pct 87.4 % [facility] Comment: Interpretive Data Percent cell count reference ranges are not reported, since discordance with absolute values may lead to misinterpretation of CBC data. Current Interpretive Data was last revised on 2017. Testing performed by: [facility], [address] [place] [phone] Lymphocyte pct 4.8 % [facility] Comment: Interpretive Data Percent cell count reference ranges are not reported, since discordance with absolute values may lead to misinterpretation of CBC data. Current Interpretive Data was last revised on 2017. Testing performed by: [facility], [address] [place] [phone] Monocyte pct 7.4 % [facility] Comment: Interpretive Data Percent cell count reference ranges are not reported, since discordance with absolute values may lead to misinterpretation of CBC data. Current Interpretive Data was last revised on 2017. Testing performed by: [facility] Heme [facility], [address] [place] [phone] Eosinophil pct 0.3 % [facility] Comment: Interpretive Data Percent cell count reference ranges are not reported, since discordance with absolute values may lead to misinterpretation of CBC data. Current Interpretive Data was last revised on 2017. Testing performed by: [facility]e [facility], [address] [place] [phone] Basophil pct 0.2 % [facility] Comment: Interpretive Data Percent cell count reference ranges are not reported, since discordance with absolute values may lead to misinterpretation of CBC data. Current Interpretive Data was last revised on 2017. Testing performed by: [facility] Heme [facility], [address] [place] [address] Blood 07/18/2024 12:0 7 PM CDT 07/18/2024 12:22 PM CDT us Gautam Cope MD LAB BLOOD ORDERABLES Final Resul t [facility] [address] [facility] Department [place] [address] * (ABNORMAL) CBC with auto differential (07/18/2024 12:07 PM CDT) WBC 20.09(H) 3.80 - 9.90 K/cumm Comment:Testing performed by : [facility] Heme Lab, [address] [place] [address] Hgb 12.1(L) 13.0 - 17.5 g/dL [facility] Comment:Testing performed by : [facility] Heme [facility], [address] [place] [address] Hct 38.2(L) 38.9 - 50.3 % CERONEAL PERDOMO Comment:Testing performed by : [facility] Heme Lab, [address] [place] [address] Plt 451(H) 150 - 400 K/cumm MERLINE PER[facility] Comment:Testing performed by : [facility] Heme Lab, [address] [place] [address] MPV 7.7 6.8 - 10.4 fL CERONEAL [facility]J Comment:Testing performed by : [facility] Heme Lab, [address] [place] [address] RBC 4.46 4.30 - 5.80 M/cumm CERONEAL [facility] Comment:Testing performed by : [facility] Heme Lab, [address] [place] [address] MCV 85.5 81.3 - 96.4 fL CERONEAL [facility]J Comment:Testing performed by : [facility] Heme Lab, [address] [place] [address] MCH 27.1 27.1 - 33.3 pg [facility] Comment:Testing performed by : [facility] Heme Lab, [address] [place] [address] MCHC 31.7(L) 32.3 - 35.7 g/dL [facility] Comment:Testing performed by : [facility] Heme Lab, [address] [place] [address] RDW CV 14.9 11.1 - 14.9 % [facility] Comment:Testing performed by : [facility] Heme Lab, [address] [place] [address] NRBC abs 0.00 0.00 - 0.01 K/cumm [facility] Comment:Testing performed by : [facility] Heme Lab, [address] [place], [place] [phone] Blood 07/18/2024 12:0 7 PM CDT 07/18/2024 12:22 PM CDT Gautam Cope MD LAB BLOOD ORDERABLES Final Resul t [facility] [address] [facility] Department [place] [address] * PSA diagnostic (07/18/2024 12:07 PM CDT) [...] Final Resul t Performing Organization Address [facility] de Phone Number [facility] [place] [address] * Lactate dehydrogenase (LD) (07/18/2024 12:07 PM CDT) Lactate dehydrogenase (LDH) 216 100 - 250 Units/L Blood 07/18/2024 12:0 7 PM CDT 07/18/2024 12:25 PM CDT Gautam Cope MD LAB BLOOD ORDERABLES Final Resul t Performing Organization Address [facility] de Phone Number [facility] [place] [address] * (ABNORMAL) Hemoglobin A1c (07/18/2024 12:07 PM CDT) Hgb A1C 8.0(H) 4.0 - 5.6 % Estimated Average Glucose 183 mg/dL [facility] Comment: The ADA [...] Final Resul t Performing Organization Address [facility] [place] [address] * (ABNORMAL) Comprehensive metabolic panel (07/18/2024 12:07 PM CDT) Sodium 142 135 - 145 mmol/L Potassium, pl 4.6 3.3 - 4.9 mmol/L [facility] Chloride 106 97 - 110 mmol/L [facility] CO2 24 22 - 32 mmol/L [facility] Anion gap 12 2 - 15 mmol/L [facility] BUN 52(H) 6 - 25 mg/dL [facility] Creatinine 2.66(H) 0.80 - 1.30 mg/dL [facility] Glucose 164 70 - 199 mg/dL [facility] [...] 2022. Calcium 9.0 8.5 - 10.3 mg/dL [facility] Bilirubin, total 0.5 0.1 - 1.2 mg/dL [facility] Protein, pl 6.7 6.5 - 8.5 g/dL [facility] Albumin 4.0 3.5 - 5.0 g/dL [facility] Alk phos 126 40 - 130 Units/L [facility] ALT 10 7 - 55 Units/L [facility] AST 13 10 - 50 Units/L [facility] Blood 07/18/2024 12:0 7 PM CDT 07/18/2024 12:25 PM CDT Gautam Cope MD LAB BLOOD ORDERABLES Final Resul t [facility] [address] [facility] Department [place] [address] * SCAN - RADIOLOGY/IMAGING (07/01/2024 9:44 AM CDT) Anatomical Region Laterality Modality Other us Provider Scanning Final Result * (ABNORMAL) eGFR (06/14/2024 3:48 PM TAG MAKER) eGFR 26(L) >=60 mL/min/1. 73 m2 [...] last reviewed 2021. Blood 06/14/2024 3:48 PM TAG MAKER 06/14/2024 4:07 PM TAG MAKER us Lin Guerrero MD LAB BLOOD ORDERABLES Final Resul t [facility] [address] [facility] Department [place] [address] * (ABNORMAL) Renal function panel (06/14/2024 3:48 PM TAG MAKER) Pathologist [facility] Sodium 143 135 - 145 mmol/L Potassium, pl 5.0(H) 3.3 - 4.9 mmol/L [facility] Chloride 105 97 - 110 mmol/L [facility] CO2 28 22 - 32 mmol/L [facility] Anion gap 10 2 - 15 mmol/L [facility] BUN 48(H) 6 - 25 mg/dL [facility] Creatinine 2.42(H) 0.80 - 1.30 mg/dL [facility] Glucose 152 70 - 199 mg/dL [facility] [...] 2022. Calcium 8.7 8.5 - 10.3 mg/dL [facility] Phosphorus, pl 3.1 2.3 - 4.5 mg/dL [facility] Albumin 3.9 3.5 - 5.0 g/dL [facility] Blood 06/14/2024 3:48 PM TAG MAKER 06/14/2024 4:03 PM TAG MAKER us Lin Guerrero MD LAB BLOOD ORDERABLES Final Resul t [facility] [address] [facility] Department [place] [address] * Urinalysis reflex to microscopic (06/08/2024 10:47 AM TAG MAKER) Color, ur Straw Yellow Clarity, ur Clear Clear [facility] Specific gravity, ur 1.012 1.003 - 1.030 [facility] pH, urine 6.0 [facility] Comment: Interpretive Data U rine pH is affected by diet, medications, systemic acid-base disturbances, and renal tubular function. pH may affect urinary stone formation. For example, urine pH below 6.0 may help reduce the tendency for calcium phosphate stones and pH greater than 6.0 may reduce the tendency for uric acid stone formation. Source: [facility] [place] Current Interpretive Data was last revised on 2017 Protein, ur ql Trace Negative [facility] Glucose, ur ql Negative Negative [facility] Ketones, ur Negative Negative [facility] Bilirubin, ur Negative Negative [facility] Blood, ur Negative Negative [facility] Urobilinogen, ur <2.0 <2.0 mg/dL [facility] Nitrite, ur Negative Negative [facility] Leukocyte esterase, ur Negative Negative [facility] UA reflex comment Reflex conditions for microscopic UA not met. [facility] Urine 06/08/2024 10:4 7 AM TAG MAKER 06/08/2024 11:41 AM TAG MAKER Lin Guerrero MD LAB URINE ORDERABLES Final Resul t Performing Organization Address [facility] Co de Phone Number [facility] [place] [address] * (ABNORMAL) eGFR (06/08/2024 10:44 AM TAG MAKER) eGFR 22(L) >=60 mL/min/1. 73 m2 Comment: [...] reviewed 2021. Blood 06/08/2024 10:4 4 AM TAG MAKER 06/08/2024 11:23 AM TAG MAKER us Lin Guerrero MD LAB BLOOD ORDERABLES Final Resul t Performing Organization Address City/[facility]/ZIP Co de Phone Number [facility] [place] [address] * (ABNORMAL) Differential, auto (06/08/2024 10:44 AM TAG MAKER) Neutrophil abs 7.8(H) 1.5 - 6.5 K/cumm Imm gran abs 0.1 0.0 - 0.1 K/cumm [facility] Lymphocyte abs 1.9 0.8 - 3.3 K/cumm [facility] Monocyte abs 1.0(H) 0.2 - 0.8 K/cumm [facility] Eosinophil abs 0.1 0.0 - 0.5 K/cumm [facility] Basophil abs 0.0 0.0 - 0.1 K/cumm [facility] Neutrophil pct 71.1 % [facility] Comment: Interpretive Data Percent cell count reference ranges are not reported, since discordance with absolute values may lead to misinterpretation of CBC data. Current Interpretive Data was last revised on 2017. Imm gran pct 0.8 % [facility] Comment: Interpretive Data Percent cell count reference ranges are not reported, since discordance with absolute values may lead to misinterpretation of CBC data. Current Interpretive Data was last revised on 2017. Lymphocyte pct 17.1 % [facility] Comment: Interpretive Data Percent cell count reference ranges are not reported, since discordance with absolute values may lead to misinterpretation of CBC data. Current Interpretive Data was last revised on 2017. Monocyte pct 9.3 % [facility] Comment: Interpretive Data Percent cell count reference ranges are not reported, since discordance with absolute values may lead to misinterpretation of CBC data. Current Interpretive Data was last revised on 2017. Eosinophil pct 1.3 % [facility] Comment: Interpretive Data Percent cell count reference ranges are not reported, since discordance with absolute values may lead to misinterpretation of CBC data. Current Interpretive Data was last revised on 2017. Basophil pct 0.4 % [facility] Comment: Interpretive Data Percent cell count reference ranges are not reported, since discordance with absolute values may lead to misinterpretation of CBC data. Current Interpretive Data was last revised on 2017. Blood 06/08/2024 10:4 4 AM TAG MAKER 06/08/2024 11:23 AM TAG MAKER us Lin Guerrero MD LAB BLOOD ORDERABLES Final Resul t [facility] [place] [address] * (ABNORMAL) CBC with auto differential (06/08/2024 10:44 AM TAG MAKER) [facility] WBC 11.0(H) 3.8 - 9.9 K/cumm Hgb 12.0(L) 13.0 - 17.5 g/dL [facility] Hct 36.9(L) 38.9 - 50.3 % [facility] Plt 357 150 - 400 K/cumm [facility] MPV 9.8 9.1 - 12.3 fL [facility] RBC 4.27(L) 4.30 - 5.80 M/cumm [facility] MCV 86.4 81.3 - 96.4 fL [facility] MCH 28.1 27.1 - 33.3 pg [facility] MCHC 32.5 32.3 - 35.7 g/dL [facility] RDW CV 14.1 11.1 - 14.9 % [facility] RDW SD 44.2 35.7 - 48.1 fL [facility] NRBC abs 0.00 0.00 - 0.01 K/cumm [facility] Blood 06/08/2024 10:4 4 AM TAG MAKER 06/08/2024 11:23 AM TAG MAKER us Lin Guerrero MD LAB BLOOD ORDERABLES Final Resul t Performing Organization Address [facility] Co de Phone Number [facility] Department [place] [address] * (ABNORMAL) Protein / creatinine ratio, urine, random (06/08/2024 10:44 AM TAG MAKER) [facility] Protein, ur, quant 21.3 mg/dL Comment: Interpretive Data No reference range established. Current interpretive data was last revised 2018. Creatinine Ur 52.2 mg/dL [facility] Comment: Interpretive Data No reference range established. Current interpretive data was last revised 2018. Protein/creatinin e ratio 408.0(H) 0.0 - 180.0 mg/g CR [facility] Urine 06/08/2024 10:4 4 AM TAG MAKER 06/08/2024 11:23 AM TAG MAKER us Lin Guerrero MD LAB URINE ORDERABLES Final Resul t Performing Organization Address [facility] de Phone Number [facility] [place] [address] * Vitamin D 25 hydroxy (06/08/2024 10:44 AM TAG MAKER) Pathologist [facility] Vitamin D 25-OH 42 30 - 80 ng/mL Blood 06/08/2024 10:4 4 AM TAG MAKER 06/08/2024 11:23 AM TAG MAKER us Lin Guerrero MD LAB BLOOD ORDERABLES Final Resul t Performing Organization Address [facility] de Phone Number [facility] [place] [address] * (ABNORMAL) PTH (06/08/2024 10:44 AM TAG MAKER) Pathologist [facility] PTH 78(H) 15 - 65 pg/mL Blood 06/08/2024 10:4 4 AM TAG MAKER 06/08/2024 11:23 AM TAG MAKER us Lin Guerrero MD LAB BLOOD ORDERABLES Final Resul t Performing Organization Address [facility] de Phone Number [facility] [place] [address] * (ABNORMAL) Renal function panel (06/08/2024 10:44 AM TAG MAKER) Pathologist [facility] Sodium 142 135 - 145 mmol/L Potassium, pl 4.8 3.3 - 4.9 mmol/L [facility] Chloride 107 97 - 110 mmol/L [facility] CO2 27 22 - 32 mmol/L [facility] Anion gap 8 2 - 15 mmol/L [facility] BUN 60(H) 6 - 25 mg/dL [facility] Creatinine 2.72(H) 0.80 - 1.30 mg/dL [facility] Glucose 94 70 - 199 mg/dL [facility] [...] 2022. Calcium 9.0 8.5 - 10.3 mg/dL [facility] Phosphorus, pl 3.5 2.3 - 4.5 mg/dL [facility] Albumin 3.8 3.5 - 5.0 g/dL [facility] Blood 06/08/2024 10:4 4 AM TAG MAKER 06/08/2024 11:23 AM TAG MAKER us Lin Guerrero MD LAB BLOOD ORDERABLES Final Resul t [facility] [place] [address] * (ABNORMAL) Lipid panel (03/08/2023 11:55 AM TAG MAKER) Cholesterol 193 30 - 199 mg/dL [facility] Comment: Interpretive Data Ages < or [...] revised on 2017. Triglycerides 250(H) <=149 mg/dL [facility] Comment: Interpretive Data Ages < or [...] on 2017. HDL 36(L) >=40 mg/dL [facility] Comment: Interpretive Data Ages < or [...] on 2017. LDL, calculated 107 <=129 mg/dL [facility] Comment: Interpretive Data Ages < or [...] on 2017. Non-HDL Cholesterol 157 mg/dL [facility] Comment: Interpretive Data Ages < or [...] revised on 2017. Chol/HDL ratio 5 [facility] Blood 03/08/2023 11:5 5 AM TAG MAKER 03/08/2023 3:48 PM TAG MAKER Result [facility] Kraig Ching MD LAB BLOOD ORDERABLES Final Re sult Performing Organization Address [facility] Co de Phone Number [facility] [place] [address] * (ABNORMAL) Albumin Creatinine Ratio, Urine (01/01/2023 10:40 AM CDT) Albumin Ur 227.3 mg/L [facility] Comment: Interpretive Data No reference range established. Current interpretive data was last revised 2018. Creatinine Ur 66.5 mg/dL [facility] Comment: Interpretive Data No reference range established. Current interpretive data was last revised 2018. Albumin Creatinine Ratio, Ur 342(H) 1 - 29 mg/g [facility] Urine 01/01/2023 10:4 0 AM CDT 01/01/2023 10:45 AM CDT Kraig Ching MD LAB URINE ORDERABLES Final Re sult Performing Organization Address [facility] Co de Phone Number [facility] [place] [address] * DIABETES EYE EXAM (06/29/2018) Diabetic Eye Exam Normal Result [facility] Historical Provider HEALTH MAINTENANCE Final Result from Last 3 Months or Most Recently Relevant to Health Maintenance Insurance [facility] MEDICARE [facility] MEDICARE [employer] MEDICARE AETNA MEDICARE Advance Directives For more information, please contact: [phone] * Full Code (Latest Code Status on File) Date Activated Date Inactivated Comments 12/16/2017 2:44 PM 12/16/2017 7:18 PM Care Teams Data Warehousing Manager Relationship Specialty Start Date End Date Kraig Ching MD [address] [facility] [address] [place] [address] PCP - General 07/10/16 Gautam Cope MD [address] [facility] [address] [place] [address] Medical Oncologist/Greeter Medical Oncology 08/18/18 Tramaine Roe MD [address] [facility] [address] [place] [address] Referring Physician Urology 08/18/18 Sukhwinder Uribe MD [address] [place] [address] Consulting Physician Urology 08/18/18 Shay Guillermo MD [address] [address] Referring Physician Urology 08/18/18 Marsha Landis RN Registered Nurse 11/17/18
--- OUTSIDE RECORDS SUMMARY | 2024-07-30 19:51 | XMS_ITS ---
Author Organization [facility] Address [address] [place] [address] Care Team Providers Care Lamp Inspector Name Role Phone Kraig Ching MD Primary Care Provider [phone] Gautam Cope MD Unavailable Tramaine Roe MD Unavailable [phone] Sukhwinder Uribe MD Unavailable [phone] Shay Guillermo MD Unavailable [phone] Marsha Landis RN Unavailable Unavailab Active Problems Problem Noted Date Diagnosed Date Statin myopathy 06/08/2024 Essential hypertension 05/30/2024 Type 2 diabetes mellitus wit h stage 3b chronic kidney disease, with long-term current use of insulin 05/30/2024 Assessment & Plan (06/08/2024 4:46 AM NETWORK AND THREAT SUPPORT SPECIALIST): Continue current regimen.Limit nephrotoxins.Reviewed creatinine. Avoid [...] 03/08/2023 Assessment & Plan (06/08/2024 4:46 AM NETWORK AND THREAT SUPPORT SPECIALIST): Hypertension is controlled. Continue current regimen. Assessment & Plan (10/05/2023 12:54 PM CDT): Hypertension is controlled. Decrease carvedilol to 12.5 mg. Assessment & Plan (03/08/2023 7:11 AM NETWORK AND THREAT SUPPORT SPECIALIST): Hypertension is controlled. Continue current regimen. 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 Avoid NSAIDS. Assessment & Plan (10/05/2023 5:50 AM CDT): Continue current regimen.Limit nephrotoxins.Reviewed creatinine. Avoid NSAIDS. Assessment & Plan (03/08/2023 7:12 AM NETWORK AND THREAT SUPPORT SPECIALIST): Continue current regimen.Limit nephrotoxins.Reviewed creatinine. Avoid NSAIDS. CKD (chronic kidney disease) 03/08/2022 Assessment & Plan (06/08/2024 4:45 AM NETWORK AND THREAT SUPPORT SPECIALIST): Limit nephrotoxins. Monitor creatinine. Avoid NSAIDS.Follow with Nephrology. Anemia in stage 3b chronic kidney disease 2021 Gastroesophageal reflux disease 04/08/2021 Assessment & Plan (03/08/2023 11:17 AM NETWORK AND THREAT SUPPORT SPECIALIST): Reviewed dietary modifications. Continue PPI. Assessment & Plan (08/18/2022 6:36 AM CDT): Reviewed dietary modifications. Continue PPI. Assessment & Plan (02/12/2022 6:03 AM CDT): Reviewed dietary modifications. Continue PPI. Assessment & Plan (04/08/2021 5:55 AM NETWORK AND THREAT SUPPORT SPECIALIST): Reviewed dietary modifications. Continue PPI. 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 Continue home PT exercises. Advised using a walker. Assessment & Plan (08/18/2022 11:47 AM CDT): Continue oxycodone. Continue home PT exercises. Advised using a walker. Assessment & Plan (02/12/2022 11:41 AM CDT): Continue oxycodone. Continue home PT exercises. A prescription for a walker. Assessment & Plan (04/08/2021 5:55 AM NETWORK AND THREAT SUPPORT SPECIALIST): Continue oxycodone. Continue home PT exercises. Continue walker. Assessment & Plan (12/26/2020 10:48 AM CDT): Continue oxycodone. Script for walker. Assessment & Plan (09/26/2020 11:29 AM CDT): Continue ROM exercises and follow with Pain Management. Refill oxycodone as needed. Prostate cancer 09/06/2018 Assessment & Plan (06/08/2024 4:46 AM NETWORK AND THREAT SUPPORT SPECIALIST): Follow with Oncology. Continue Zytiga. Assessment [...] 01/25/2018 Assessment & Plan (03/07/2018 6:54 AM NETWORK AND THREAT SUPPORT SPECIALIST): Hypertension is controlled. Continue current regimen. [...] creatinine. Assessment & Plan (04/08/2021 5:54 AM NETWORK AND THREAT SUPPORT SPECIALIST): Hypertension is controlled. Continue current regimen.Limit [...] NSAIDS. Assessment & Plan (03/07/2018 6:55 AM NETWORK AND THREAT SUPPORT SPECIALIST): Hypertension is controlled. Continue current regimen. Limit nephrotoxins. Monitor creatinine. Avoid NSAIDS. Assessment & Plan (11/25/2017 7:09 AM CDT): Limit nephrotoxins. Monitor creatinine. Avoid NSAIDS. Duodenal ulcer 11/25/2017 Assessment & Plan (11/25/2017 10:16 AM CDT): Reviewed GI note . Continue pantoprazole. Avoid NSAIDS. Refer for EGD. PAF (paroxysmal atrial fibrillation) 10/22/2017 Assessment & Plan (03/07/2018 6:54 AM NETWORK AND THREAT SUPPORT SPECIALIST): Continue rate control. Continue anticoagualtion. Anticipate [...] NSAIDS. Assessment & Plan (03/07/2018 6:55 AM NETWORK AND THREAT SUPPORT SPECIALIST): Limit nephrotoxins. Monitor creatinine. Avoid NSAIDS. [...] diet. Assessment & Plan (04/08/2021 10:17 AM NETWORK AND THREAT SUPPORT SPECIALIST): Reviewed HgBA1C elevated at 10.6 on [...] therapy. Assessment & Plan (03/07/2018 6:57 AM NETWORK AND THREAT SUPPORT SPECIALIST): Continue pravastatin. He had myalgias on [...] diet. Assessment & Plan (03/02/2017 6:53 AM NETWORK AND THREAT SUPPORT SPECIALIST): Hypertension is controlled. Continue current regimen. Reviewed low sodium diet. Assessment & Plan (01/15/2017 6:44 AM CDT): Reviewed proper diet. Continue statin therapy. Hyperlipidemia 01/12/2012 Assessment & Plan (06/08/2024 4:46 AM NETWORK AND THREAT SUPPORT SPECIALIST): Continue pravastatin. Order lipid panel at [...] 05/28/2023 Assessment & Plan (03/08/2023 11:40 AM NETWORK AND THREAT SUPPORT SPECIALIST): Agree with cataract surgery. He has [...] 08/30/2017 Assessment & Plan (03/02/2017 10:48 AM NETWORK AND THREAT SUPPORT SPECIALIST): Mood is improved. Monitor off medication. [...] 200. Assessment & Plan (03/07/2018 6:56 AM NETWORK AND THREAT SUPPORT SPECIALIST): Continue current regimen. Advised annual eye exam.Limit nephrotoxins. Monitor creatinine. Avoid NSAIDS. Assessment & Plan (11/25/2017 10:16 AM CDT): Continue current regimen and add Januvia.Advised annual eye exam. Limit nephrotoxins. Monitor creatinine. Avoid NSAIDS. Assessment & Plan (01/15/2017 6:44 AM CDT): Continue current regimen. Advised annual eye exam. Reviewed proper diet. Continue statin therapy.
--- OUTSIDE RECORDS SUMMARY | 2024-07-30 19:51 | XMS_ITS | Clinical Summary ---
Author Organization [facility] Address [address] [place] [address] Care Team Providers Care Liaison Engineer Name Role Phone Kraig Ching MD Primary Care Provider [phone] Gautam Cope MD Unavailable Tramaine Roe MD Unavailable [phone] Sukhwinder Uribe MD Unavailable [phone] Shay Guillermo MD Unavailable [phone] Marsha Landis RN Unavailable Unavailab le Allergies [...] 05/30/2024 Assessment & Plan (06/08/2024 4:46 AM PAIRER INSPECTOR): Continue current regimen.Limit nephrotoxins.Reviewed creatinine. Avoid NSAIDS. [...] 03/08/2023 Assessment & Plan (06/08/2024 4:46 AM PAIRER INSPECTOR): Hypertension is controlled. Continue current regimen. Assessment & Plan (10/05/2023 12:54 PM CDT): Hypertension is controlled. Decrease carvedilol to 12.5 mg. Assessment & Plan (03/08/2023 7:11 AM PAIRER INSPECTOR): Hypertension is controlled. Continue current regimen. 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 Avoid NSAIDS. Assessment & Plan (10/05/2023 5:50 AM CDT): Continue current regimen.Limit nephrotoxins.Reviewed creatinine. Avoid NSAIDS. Assessment & Plan (03/08/2023 7:12 AM PAIRER INSPECTOR): Continue current regimen.Limit nephrotoxins.Reviewed creatinine. Avoid NSAIDS. CKD (chronic kidney disease) 03/08/2022 Assessment & Plan (06/08/2024 4:45 AM PAIRER INSPECTOR): Limit nephrotoxins. Monitor creatinine. Avoid NSAIDS.Follow with Nephrology. Anemia in stage 3b chronic kidney disease 2021 Gastroesophageal reflux disease 04/08/2021 Assessment & Plan (03/08/2023 11:17 AM PAIRER INSPECTOR): Reviewed dietary modifications. Continue PPI. Assessment & Plan (08/18/2022 6:36 AM CDT): Reviewed dietary modifications. Continue PPI. Assessment & Plan (02/12/2022 6:03 AM CDT): Reviewed dietary modifications. Continue PPI. Assessment & Plan (04/08/2021 5:55 AM PAIRER INSPECTOR): Reviewed dietary modifications. Continue PPI. 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 Continue home PT exercises. Advised using a walker. Assessment & Plan (08/18/2022 11:47 AM CDT): Continue oxycodone. Continue home PT exercises. Advised using a walker. Assessment & Plan (02/12/2022 11:41 AM CDT): Continue oxycodone. Continue home PT exercises. A prescription for a walker. Assessment & Plan (04/08/2021 5:55 AM PAIRER INSPECTOR): Continue oxycodone. Continue home PT exercises. Continue walker. Assessment & Plan (12/26/2020 10:48 AM CDT): Continue oxycodone. Script for walker. Assessment & Plan (09/26/2020 11:29 AM CDT): Continue ROM exercises and follow with Pain Management. Refill oxycodone as needed. Prostate cancer 09/06/2018 Assessment & Plan (06/08/2024 4:46 AM PAIRER INSPECTOR): Follow with Oncology. Continue Zytiga. Assessment & [...] 01/25/2018 Assessment & Plan (03/07/2018 6:54 AM PAIRER INSPECTOR): Hypertension is controlled. Continue current regimen. CHF [...] creatinine. Assessment & Plan (04/08/2021 5:54 AM PAIRER INSPECTOR): Hypertension is controlled. Continue current regimen.Limit nephrotoxins. [...] NSAIDS. Assessment & Plan (03/07/2018 6:55 AM PAIRER INSPECTOR): Hypertension is controlled. Continue current regimen. Limit nephrotoxins. Monitor creatinine. Avoid NSAIDS. Assessment & Plan (11/25/2017 7:09 AM CDT): Limit nephrotoxins. Monitor creatinine. Avoid NSAIDS. Duodenal ulcer 11/25/2017 Assessment & Plan (11/25/2017 10:16 AM CDT): Reviewed GI note . Continue pantoprazole. Avoid NSAIDS. Refer for EGD. PAF (paroxysmal atrial fibrillation) 10/22/2017 Assessment & Plan (03/07/2018 6:54 AM PAIRER INSPECTOR): Continue rate control. Continue anticoagualtion. Anticipate starting [...] NSAIDS. Assessment & Plan (03/07/2018 6:55 AM PAIRER INSPECTOR): Limit nephrotoxins. Monitor creatinine. Avoid NSAIDS. Assessment [...] diet. Assessment & Plan (04/08/2021 10:17 AM PAIRER INSPECTOR): Reviewed HgBA1C elevated at 10.6 on 04/01/21. [...] therapy. Assessment & Plan (03/07/2018 6:57 AM PAIRER INSPECTOR): Continue pravastatin. He had myalgias on other [...] diet. Assessment & Plan (03/02/2017 6:53 AM PAIRER INSPECTOR): Hypertension is controlled. Continue current regimen. Reviewed low sodium diet. Assessment & Plan (01/15/2017 6:44 AM CDT): Reviewed proper diet. Continue statin therapy. Hyperlipidemia 01/12/2012 Assessment & Plan (06/08/2024 4:46 AM PAIRER INSPECTOR): Continue pravastatin. Order lipid panel at next [...] 05/28/2023 Assessment & Plan (03/08/2023 11:40 AM PAIRER INSPECTOR): Agree with cataract surgery. He has 1st [...] 08/30/2017 Assessment & Plan (03/02/2017 10:48 AM PAIRER INSPECTOR): Mood is improved. Monitor off medication. Impotence [...] 200. Assessment & Plan (03/07/2018 6:56 AM PAIRER INSPECTOR): Continue current regimen. Advised annual eye exam.Limit [...] Department Care Team Description 07/24/2024 Telephone [facility] Oncology [address] [facility] [place] Floor [address] [place] [address] Gautam Cope MD 07/22/2024 Orders Only [facility] Health Information Management [address] [place] [address] Scanning, Provider 07/21/2024 Results Follow-Up [facility] at [address] [phone] Fadi Corrales NP 07/19/2024 7:45 PM CDT - 07/19/2024 11:59 PM CDT Hospital Encounter [facility] [address] [place] [address] Urinary frequency Discharge Disposition: Discharge to home or self care 07/19/2024 2:00 PM CDT Office Visit [facility] at [address] [phone] Clau Childers PA Urinary frequency (Primary Dx); Leukocytosis, unspecified type 07/18/2024 1:45 PM CDT Infusion [facility] - Infusion [address] [facility] Floor [address] [place] [address] Prostate cancer (HCC) (Primary Dx) 07/18/2024 1:00 PM CDT Office Visit [facility] Oncology [address] [place] [address] Floor 5 [place] [address] Gautam Cope MD Prostate cancer (HCC) (Primary Dx) 07/18/2024 12:00 PM CDT Lab [facility] - Lab Collection [address] [place] [address] [address] [place] [address] Prostate cancer (HCC) 07/18/2024 Patient Self-Triage [facility] [address] [place] [address] Mychart, Generic Provider 07/01/2024 Orders Only [facility] Health Information Management [address] [place] [address] Scanning, Provider 06/14/2024 6:15 PM PAIRER INSPECTOR Lab [facility] [address] [place] [phone] GABRIELA (acute kidney injury) 06/14/2024 3:00 PM PAIRER INSPECTOR Office Visit [facility] Nephrology [address] [place] [address] Medicine 5th [place] [address] [place] [phone] Lin Guerrero MD Chronic kidney disease, stage 3b (HCC) (Primary Dx); GABRIELA (acute kidney injury); Hypertension, essential; Secondary hyperparathyroidism of renal origin 06/08/2024 12:00 PM PAIRER INSPECTOR Lab [facility] [address] [place] [phone] Anemia in stage 3b chronic kidney disease (HCC); Hypertension, essential; Secondary hyperparathyroidism of renal origin; Stage 3 chronic kidney disease, unspecified whether stage 3a or 3b CKD (HCC); Primary hypertension; Vitamin D deficiency; Type 2 diabetes mellitus with stage 3a chronic kidney disease, with long-term current use of insulin (HCC); Fatigue, unspecified type; GABRIELA (acute kidney injury) 06/08/2024 9:45 AM PAIRER INSPECTOR Office Visit [address] [place] [phone] Kraig Ching MD Hypertension, essential (Primary Dx); Prostate cancer (HCC); Type 2 diabetes mellitus with stage 3b chronic kidney disease, with long-term current use of insulin (HCC); Stage 3b chronic kidney disease (HCC); Hyperlipidemia, unspecified hyperlipidemia type 05/24/2024 Orders Only [facility] Nephrology [address] [place] [address] [facility] 5th [place] [address] [place] [address] Lin Guerrero MD Anemia in stage 3b [...] type; GABRIELA (acute kidney injury) 05/02/[address] [place] [phone] Kraig Ching MD Medical Question/Miscellaneous from Last [...] 01/17/2019 Influenza, Unspecified 01/17/2019(Deferred: Daisy ent Refused) [employer] ([employer]) SARS-CoV-2 Vaccination 06/14/2020, 06/14/2020 Pfizer SARS-CoV-2 [...] pur e alcohol) Occasional glass of wine. [facility] Utilities Answer Date Recorded In the past 12 months has [facility] gas, oil, or water [employer] threatened to shut off services in your [...] any clubs o r organizations such as synagogue groups, unions, fraternal or athletic groups, or [...] any time in the past 12 m [facility], were you homeless or living in [...] on file Legal Sex Male 4:46 PM PAIRER INSPECTOR Gender Identity Not on file Sexual [...] cm (5' 9 ) 06/14/2024 2:58 PM PAIRER INSPECTOR Body Mass Index 29.98 06/14/2024 2:58 PM PAIRER INSPECTOR Plan of Treatment Health Maintenance Due Date [...] ACO Care Management On track(2023 1:22 PM PAIRER INSPECTOR) No Clarissa Luna RN Note: Problem: Lack [...] providers ACO Care Management Improving( 1:22 PM PAIRER INSPECTOR) No Clarissa Luna RN Note: Problem: Potential [...] medication regimen. Medical Devices Implanted Type Area Steam And Power Superintendent Device Identifier Shelf Expiration Date Model / Serial / Lot [employer] Lens Iol Cna0t0.195 [facility] Autonom Cna0t0.195 - [id number] - [id number] Implanted:Qty: 1 on 06/09/2023 by Higinio Connolly MD at [facility] Lens Right: Eye [employer] [id number] 10/27/2025 CNA0T0.19 5 / [id number] / [employer] Lens Iol Cna0t0.200 [facility] Autonom Cna0t0.200 - [id number] - [id number] Implanted:Qty: 1 on 05/19/2023 by Higinio Connolly MD at [facility] Left: Eye [employer] [id number] 10/06/2025 CNA0T0.20 0 / [id number] / Procedures Procedure Name Priority Date/Time [...] AM CDT EGFR Routine 06/14/2024 3:48 PM PAIRER INSPECTOR GABRIELA (acute kidney injury) RENAL FUNCTION PANEL Routine 06/14/2024 3:48 PM PAIRER INSPECTOR GABRIELA (acute kidney injury) URINALYSIS AND REFLEX TO MICROSCOPIC Routine 06/08/2024 10:47 AM PAIRER INSPECTOR Anemia in stage 3b chronic kidney disease (HCC) Hypertension, essential Secondary hyperparathyroidism of renal origin Stage 3 chronic kidney disease, unspecified whether stage 3a or 3b CKD (HCC) Primary hypertension Vitamin D deficiency Type 2 diabetes mellitus with stage 3a chronic kidney disease, with long-term current use of insulin (HCC) Fatigue, unspecified type GABRIELA (acute kidney injury) EGFR Routine 06/08/2024 10:44 AM PAIRER INSPECTOR Anemia in stage 3b chronic kidney disease (HCC) Hypertension, essential Secondary hyperparathyroidism of renal origin Stage 3 chronic kidney disease, unspecified whether stage 3a or 3b CKD (HCC) Primary hypertension Vitamin D deficiency Type 2 diabetes mellitus with stage 3a chronic kidney disease, with long-term current use of insulin (HCC) Fatigue, unspecified type GABRIELA (acute kidney injury) DIFFERENTIAL AUTO Routine 06/08/2024 10:44 AM PAIRER INSPECTOR Anemia in stage 3b chronic kidney disease [...] RENAL FUNCTION PANEL Routine 06/08/2024 10:44 AM PAIRER INSPECTOR Anemia in stage 3b chronic kidney disease [...] D 25 HYDROXY Routine 06/08/2024 10:44 AM PAIRER INSPECTOR Anemia in stage 3b chronic kidney disease [...] WITH AUTO DIFFERENTIAL Routine 06/08/2024 10:44 AM PAIRER INSPECTOR Anemia in stage 3b chronic kidney disease (HCC) Hypertension, essential Secondary hyperparathyroidism of renal origin Stage 3 chronic kidney disease, unspecified whether stage 3a or 3b CKD (HCC) Primary hypertension Vitamin D deficiency Type 2 diabetes mellitus with stage 3a chronic kidney disease, with long-term current use of insulin (HCC) Fatigue, unspecified type GABRIELA (acute kidney injury) PTH Routine 06/08/2024 10:44 AM PAIRER INSPECTOR Anemia in stage 3b chronic kidney disease [...] RATIO, URINE, RANDOM Routine 06/08/2024 10:44 AM PAIRER INSPECTOR Anemia in stage 3b chronic kidney disease (HCC) Hypertension, essential Secondary hyperparathyroidism of renal origin Stage 3 chronic kidney disease, unspecified whether stage 3a or 3b CKD (HCC) Primary hypertension Vitamin D deficiency Type 2 diabetes mellitus with stage 3a chronic kidney disease, with long-term current use of insulin (HCC) Fatigue, unspecified type GABRIELA (acute kidney injury) LIPID PANEL Routine 03/08/2023 11:55 AM PAIRER INSPECTOR Hyperlipidemia, unspecified hyperlipidemia type ALBUMIN CREATININE RATIO, [...] Large Ketones, ur, POC Negative Negative Specific [place], POC 1.015 1.003 - 1.030 Blood, ur, POC Hemolyzed, trace(A) Negative pH, ur, POC 6.0 5.0 - 8.0 Protein, ur, POC 30.(A) Negative Urobilinogen, urine, POC 0.2 0.2 - 1.0 mg/dL Nitrite, ur, POC Negative Negative Leukocytes, ur, POC Negative Negative Lot Number [id number] Urine 07/19/2024 2:16 PM CDT Clau [facility] POINT OF CARE TEST ORDER ALAN Final Result * Urine culture Urine, clean voided (07/19/2024 12:00 PM CDT) Report Final Report: No growth Comment:Testing performed by : [facility], [address] [place]., [address] Urine, clean voided 07/19/2024 12:00 PM CDT 07/20/2024 2:19 AM CDT Narrative [facility] AM[facility]OR - 07/21/2024 7:38 AM CDT Testing performed by [facility] Microbiology Laboratory ([phone]) Clau [facility] LAB MICROBIOLOGY - [facility] AL ORDERABLES Final Result MERLINE [id number] [address] Alaniz Department of Laboratories [place], [place] [id number] * (ABNORMAL) eGFR (07/18/2024 12:07 PM CDT) [...] Resul t [facility] Department [place] [address] * (ABNORMAL) Differential, auto (07/18/2024 12:07 PM CDT) Neutrophil abs 17.55(H) 1.50 - 6.50 K/cumm Comment:Testing performed by : [facility], [address] [place] [phone] Lymphocyte abs 0.96 0.80 - 3.30 K/cumm [facility] Comment:Testing performed by : [facility], [address] [place], [place] [phone] Monocyte abs 1.48(H) 0.20 - 0.80 K/cumm [facility] Comment:Testing performed by : [facility], [address] [place], [place] [phone] Eosinophil abs 0.06 0.00 - 0.50 K/cumm [facility] Comment:Testing performed by : [facility], [address] [place] [phone] Basophil abs 0.03 0.00 - 0.10 K[facility]cumm [facility] Comment:Testing performed by : [facility], [address] [place] [phone] Neutrophil pct 87.4 % [facility] Comment: Interpretive Data Percent cell count reference ranges are not reported, since discordance with absolute values may lead to misinterpretation of CBC data. Current Interpretive Data was last revised on 2017. Testing performed by: [facility], [address] [place] [phone] Lymphocyte pct 4.8 % [facility] Comment: Interpretive Data Percent cell count reference ranges are not reported, since discordance with absolute values may lead to misinterpretation of CBC data. Current Interpretive Data was last revised on 2017. Testing performed by: [facility], [address] [place] [address] Monocyte pct 7.4 % [facility] Comment: Interpretive Data Percent cell count reference ranges are not reported, since discordance with absolute values may lead to misinterpretation of CBC data. Current Interpretive Data was last revised on 2017. Testing performed by: [facility], [address] [place] [phone] Eosinophil pct 0.3 % [facility] Comment: Interpretive Data Percent cell count reference ranges are not reported, since discordance with absolute values may lead to misinterpretation of CBC data. Current Interpretive Data was last revised on 2017. Testing performed by: [facility], [address] [place] [address] Basophil pct 0.2 % [facility] Comment: Interpretive Data Percent cell count reference ranges are not reported, since discordance with absolute values may lead to misinterpretation of CBC data. Current Interpretive Data was last revised on 2017. Testing performed by: [facility], [address] [place] [address] Blood 07/18/2024 12:0 7 PM CDT 07/18/2024 12:22 PM CDT us Gautam Cope MD LAB BLOOD ORDERABLES Final Resul t [facility] Department of Laboratories [place], [place] [id number] * (ABNORMAL) CBC with auto differential (07/18/2024 12:07 PM CDT) WBC 20.09(H) 3.80 - 9.90 K/cumm Comment:Testing performed by : [facility], [address] [place] [address] Hgb 12.1(L) 13.0 - 17.5 g/dL [facility] Comment:Testing performed by : [facility], [address] [place] [address] Hct 38.2(L) 38.9 - 50.3 % [facility] Comment:Testing performed by : [facility], [address] [place] [address] Plt 451(H) 150 - 400 K/cumm [facility] Comment:Testing performed by : [facility], [address] [place] [address] MPV 7.7 6.8 - 10.4 fL [facility] Comment:Testing performed by : [facility], [address] [place], [place] [phone] RBC 4.46 4.30 - 5.80 M/cumm [facility] Comment:Testing performed by : [facility], [address] [place], [place] [phone] MCV 85.5 81.3 - 96.4 fL [facility] Comment:Testing performed by : [facility], [address] [place], [place] [phone] MCH 27.1 27.1 - 33.3 pg [facility] Comment:Testing performed by : [facility], [address] [place] [address] MCHC 31.7(L) 32.3 - 35.7 g/dL [facility] Comment:Testing performed by : [facility], [address] [place] [address] RDW CV 14.9 11.1 - 14.9 % [facility] Comment:Testing performed by : [facility], [address] [place] [address] NRBC abs 0.00 0.00 - 0.01 K/cumm [facility] Comment:Testing performed by : [facility], [address] [place] [address] Blood 07/18/2024 12:0 7 PM CDT 07/18/2024 12:22 PM CDT us Gautam Cope MD LAB BLOOD ORDERABLES Final Resul t [facility] Department of Laboratories [place] [id number] * PSA diagnostic (07/18/2024 12:07 PM CDT) [facility] PSA-Total <0.02 <=6.20 ng/mL Comment: Interpretive Data [...] Final Resul t Performing Organization Address [facility] de Phone Number [facility] Department [place] [address] * Lactate dehydrogenase (LD) (07/18/2024 12:07 PM CDT) [facility] Lactate dehydrogenase (LDH) 216 100 - 250 Units/L Blood 07/18/2024 12:0 7 PM CDT 07/18/2024 12:25 PM CDT Gautam Cope MD LAB BLOOD ORDERABLES Final Resul t Performing Organization Address [facility] de Phone Number [facility] [place] [address] * (ABNORMAL) Hemoglobin A1c (07/18/2024 12:07 PM CDT) [facility] Hgb A1C 8.0(H) 4.0 - 5.6 [...] Resul t [facility] Department [place] [address] * (ABNORMAL) Comprehensive metabolic panel (07/18/2024 12:07 [...] mg/dL [facility] Bilirubin, total 0.5 0.1 - 1.2 mg/dL [facility] Protein, pl 6.7 6.5 - 8.5 g/dL [facility] Albumin 4.0 3.5 - 5.0 g/dL [facility] Alk phos 126 40 - 130 Units/L [facility] ALT 10 7 - 55 Units/L [facility] AST 13 10 - 50 Units/L [facility] Blood 07/18/2024 12:0 7 PM CDT 07/18/2024 12:25 PM CDT us Gautam Cope MD LAB BLOOD ORDERABLES Final Resul t Performing Organization Address [facility] Co de Phone Number [facility] Department [place] [address] * SCAN - RADIOLOGY/IMAGING (07/01/2024 9:44 AM CDT) Anatomical Region Laterality Modality Other us Provider Scanning Final Result * (ABNORMAL) eGFR (06/14/2024 3:48 PM PAIRER INSPECTOR) eGFR 26(L) >=60 mL/min/1. 73 m2 Comment: [...] last reviewed 2021. Blood 06/14/2024 3:48 PM PAIRER INSPECTOR 06/14/2024 4:07 PM PAIRER INSPECTOR us Lin Guerrero MD LAB BLOOD ORDERABLES Final Resul t Performing Organization Address [facility] Co de Phone Number [facility] Department [place] [address] * (ABNORMAL) Renal function panel (06/14/2024 3:48 PM PAIRER INSPECTOR) Pathologist [facility] Sodium 143 135 - 145 mmol/L Potassium, pl 5.0(H) 3.3 - 4.9 mmol/L [facility] Chloride 105 97 - 110 mmol/L [facility] CO2 28 22 - 32 mmol/L [facility] Blood 06/14/2024 3:48 PM PAIRER INSPECTOR 06/14/2024 4:03 PM PAIRER INSPECTOR us Lin Guerrero MD LAB BLOOD ORDERABLES Final Resul t [facility] Department [place] [address] * Urinalysis reflex to microscopic (06/08/2024 10:47 AM PAIRER INSPECTOR) Pathologist [facility] Color, ur Straw Yellow Clarity, ur Clear Clear [facility] Specific gravity, ur 1.012 1.003 - 1.030 [facility] pH, urine 6.0 [facility] Comment: Interpretive Data U rine pH is affected by diet, medications, systemic acid-base disturbances, and renal tubular function. pH may affect urinary stone formation. For example, urine pH below 6.0 may help reduce the tendency for calcium phosphate stones and pH greater than 6.0 may reduce the tendency for uric acid stone formation. Source: [facility] Trubates Current Interpretive Data was last revised on 2017 Protein, ur ql Trace Negative [facility] Glucose, ur ql Negative Negative [facility] Ketones, ur Negative Negative [facility] Bilirubin[facility] ur Negative Negative [facility] Blood, ur Negative Negative [facility] Urobilinogen, ur <2.0 <2.0 mg/dL [facility] Nitrite, ur Negative Negative [facility] Leukocyte esterase, ur Negative Negative [facility] UA reflex comment Reflex conditions for microscopic UA not met. [facility] Urine 06/08/2024 10:4 7 AM PAIRER INSPECTOR 06/08/2024 11:41 AM PAIRER INSPECTOR us Lin Guerrero MD LAB URINE ORDERABLES Final Resul t [facility] Department [place] [address] * (ABNORMAL) eGFR (06/08/2024 10:44 AM PAIRER INSPECTOR) eGFR 22(L) >=60 mL/min/1. 73 m2 Comment: [...] reviewed 2021. Blood 06/08/2024 10:4 4 AM PAIRER INSPECTOR 06/08/2024 11:23 AM PAIRER INSPECTOR us Lin Guerrero MD LAB BLOOD ORDERABLES Final Resul t [facility] Department [place] [address] * (ABNORMAL) Differential, auto (06/08/2024 10:44 AM PAIRER INSPECTOR) Neutrophil abs 7.8(H) 1.5 - 6.5 K/cumm Imm gran abs 0.1 0.0 - 0.1 K/cumm [facility] Lymphocyte abs 1.9 0.8 - 3.3 K/cumm [facility] Monocyte abs 1.0(H) 0.2 - 0.8 K/cumm [facility] Eosinophil abs 0.1 0.0 - 0.5 K/cumm [facility] Basophil abs 0.0 0.0 - 0.1 [...] on 2017. Blood 06/08/2024 10:4 4 AM PAIRER INSPECTOR 06/08/2024 11:23 AM PAIRER INSPECTOR us iLn Guerrero MD LAB BLOOD ORDERABLES Final Resul t [facility] Department [place] [address] * (ABNORMAL) CBC with auto differential (06/08/2024 10:44 AM PAIRER INSPECTOR) WBC 11.0(H) 3.8 - 9.9 K/cumm Hgb [...] [facility] Blood 06/08/2024 10:4 4 AM PAIRER INSPECTOR 06/08/2024 11:23 AM PAIRER INSPECTOR Lin Guerrero MD LAB BLOOD ORDERABLES Final Resul t Performing Organization Address [facility] Phone Number [facility] [place] [address] * (ABNORMAL) Protein / creatinine ratio, urine, random (06/08/2024 10:44 AM PAIRER INSPECTOR) Pathologist [facility] Protein, ur, quant 21.3 mg/dL Comment: Interpretive Data No reference range established. Current interpretive data was last revised 2018. Creatinine Ur 52.2 mg/dL [facility] Comment: Interpretive Data No reference range established. Current interpretive data was last revised 2018. Protein/creatinin e ratio 408.0(H) 0.0 - 180.0 mg/g CR [facility] Urine 06/08/2024 10:4 4 AM PAIRER INSPECTOR 06/08/2024 11:23 AM PAIRER INSPECTOR Lin Guerrero MD LAB URINE ORDERABLES Final Resul t Performing Organization Address [facility] Phone Number [facility] Department [place] [address] * Vitamin D 25 hydroxy (06/08/2024 10:44 AM PAIRER INSPECTOR) Pathologist [facility] Vitamin D 25-OH 42 30 - 80 ng/mL Blood 06/08/2024 10:4 4 AM PAIRER INSPECTOR 06/08/2024 11:23 AM PAIRER INSPECTOR Lin Guerrero MD LAB BLOOD ORDERABLES Final Resul t Performing Organization Address [facility] Phone Number [facility] Department [place] [address] * (ABNORMAL) PTH (06/08/2024 10:44 AM PAIRER INSPECTOR) PTH 78(H) 15 - 65 pg/mL Blood 06/08/2024 10:4 4 AM PAIRER INSPECTOR 06/08/2024 11:23 AM PAIRER INSPECTOR Lin Guerrero MD LAB BLOOD ORDERABLES Final Resul t [facility] Department [place] [address] * (ABNORMAL) Renal function panel (06/08/2024 10:44 AM PAIRER INSPECTOR) Sodium 142 135 - 145 mmol/L Potassium, [...] [facility]ENTER Blood 06/08/2024 10:4 4 AM PAIRER INSPECTOR 06/08/2024 11:23 AM PAIRER INSPECTOR Lin Guerrero MD LAB BLOOD ORDERABLES Final Resul t [facility] Department [place] [address] * (ABNORMAL) Lipid panel (03/08/2023 11:55 AM PAIRER INSPECTOR) Cholesterol 193 30 - 199 mg/dL [facility] Comment: Interpretive Data Ages < or [...] on 2017. Triglycerides 250(H) <=149 mg/dL [facility] Comment: Interpretive Data Ages < or [...] on 2017. HDL 36(L) >=40 mg/dL [facility] Comment: Interpretive Data Ages < or [...] on 2017. LDL, calculated 107 <=129 mg/dL [facility] Comment: Interpretive Data Ages < or [...] revised on 2017. Non-HDL Cholesterol 157 mg/dL [facility] Comment: Interpretive Data Ages < or [...] last revised on 2017. Chol/HDL ratio 5 [facility] Blood 03/08/2023 11:5 5 AM PAIRER INSPECTOR 03/08/2023 3:48 PM PAIRER INSPECTOR Kraig Ching MD LAB BLOOD ORDERABLES Final Re sult [facility] [place] [address] * (ABNORMAL) Albumin Creatinine Ratio, Urine (01/01/2023 10:40 AM CDT) Albumin Ur 227.3 mg/L [facility] Comment: Interpretive Data No reference range established. Current interpretive data was last revised 2018. Creatinine Ur 66.5 mg/dL [facility] Comment: Interpretive Data No reference range established. Current interpretive data was last revised 2018. Albumin Creatinine Ratio, Ur 342(H) 1 - 29 mg/g [facility] Urine 01/01/2023 10:4 0 AM CDT 01/01/2023 10:45 AM CDT us Kraig Ching MD LAB URINE ORDERABLES Final Re sult [facility] Department [place] [address] * DIABETES EYE EXAM (06/29/2018) Diabetic Eye Exam Normal us Historical Provider HEALTH MAINTENANCE Final Result from Last 3 Months or Most Recently Relevant to Health Maintenance Insurance [employer] Advance Directives For more information, please contact: [phone] * Full Code (Latest Code Status on File) Date Activated Date Inactivated Comments 12/16/2017 2:44 PM 12/16/2017 7:18 PM Care Teams Liaison Engineer Relationship Specialty Start Date End Date Kraig Ching MD [address] [facility] [address] [place] [address] PCP - General 07/10/16 Gautam Cope MD [address] [facility] [address] [place] [address] Medical Oncologist/Rand Cementer Medical Oncology 08/18/18 Tramaine Roe MD [address] [facility] [address] [place] [address] Referring Physician Urology 08/18/18 Sukhwinder Uribe MD [address] [facility] [address] [place] [address] Consulting Physician Urology 08/18/18 Shay Guillermo MD [address] [facility] [address] [place] [address] Referring Physician Urology 08/18/18 Marsha Landis, RN Registered Nurse 11/17/18
[2024-07-30 20:02] LABS: Add Urine Microscopic? YES; Appearance Urine Clear (Clear); Bacteria Urine None Seen /hpf; Bilirubin Urine Negative (Negative); Blood Urine Negative (Negative); Color Urine Yellow (Yellow); Glucose Urine UA Negative (Negative); Hyaline Casts Urine Present /lpf; Ketones Urine Negative (Negative); Leukocyte Esterase Ur Negative LEU/UL (Negative); Need Manual Microscopic Reviewed; Nitrate Urine Negative (Negative); Protein Urine 1+ mg/dL (Negative); RBC Urine 0-2 /hpf (0-2); Specific Grav Ur 1.013 (1.001-1.035); Squamous Epithelial Cell Urine None Seen /hpf (Few); Urobilinogen Urine 0.2 mg/dL (<2.0); WBC Urine 0-5 /hpf (0-3)
--- NOTE | 2024-07-30 20:22 | ADMGEN ---
This patient, David Wei, was admitted to Medical Room 257-01 at 20:20. Patient/family oriented to hospital policies and general routines including ID bracelet, bed and alarms, visiting hours, pain management, procedures, bathroom and other care routines, personal items, smoking policy, room service/diet, and visiting hours. Information on how to activate the Rapid Response Team has been discussed. Patient/Family are encouraged to report perceived risks to care and to ask questions if they do not understand what they are told or what they should do.
[2024-07-30] MEDS: SODIUM CHLORIDE 0.9% IV 1,000 ML 100 ML IV CONT (21:09)
--- NOTE | 2024-07-30 21:36 | P.HP_ITS ---
H&P: HPI History of Present Illness Date/Time: 07/30/24 21:36 Chief Complaint: Weakness Narrative: 83-year-old male who with history of CKD stage 3, esophageal ulcer, paroxysmal atrial fibrillation, GERD, hyperlipidemia, hypertension, insulin- dependent diabetes mellitus presents with severe weakness and inability to ambulate as well as 6 days of diarrhea. He is accompanied by his whom he lives with and his knees. The patient was recently discharged from [facility] with complaint of diarrhea and weakness. He returns with progressive worsening of symptoms. Reports about 1 large loose liquid brown nonbloody stool per day. He has some nausea but no vomiting. No fever. He was also recently discharged from [facility] for cellulitis and receive antibiotics. Patient has barely had any oral intake per the family. On presentation to ER patient was hypotensive which was responsive to fluid resuscitation. She presents with serum creatinine 3.51. Received 1 L normal saline. 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 He smokes 1-2 cigarettes per day most days. He denies marijuana use or other drug use. He drinks 1-2 alcoholic drinks per week. He has cats. Code status -full Surrogate decision maker - Years smoked: 50 Smoking status: Former smoker Tobacco type: cigarettes Second hand tobacco smoke exposure: Yes Additional smoking assessment comments: marijuana daily and regular cigarettes smokes intermittently Alcohol intake: current Drinks per week: 1 Substance use: current Substance use type: marijuana Other substance usage details: smoke once a day Last use: 07/30/2023 Do You Feel Safe in your Home?: Yes Lack of Transportation: No Lack of Food: Never True Current Housing: I Have Housing Concerned About Future Housing: No Difficulty Paying Gas/Electric Bills: No Difficulty Paying for Meds: No Currently Unemployed: No Education: Master's Degree or Higher Difficulty w/ Childcare or Family Care: No Spiritual care concerns: No Meds Home Medications and Allergies Home Medications ?Medication ?Instructions ?Recorded ?Confirmed ?Type insulin aspart U-100 100 unit/mL 8 unit subcut TID 06/19/22 07/30/24 History (3 mL) subcutaneous pen (Novolog FlexPen U-100 Insulin aspart) insulin glargine 100 unit/mL (3 28 unit subcut QHS 06/19/22 07/30/24 History mL) subcutaneous pen (Lantus Solostar U-100 Insulin) pantoprazole 40 mg tablet,delayed 40 mg PO DAILY 06/19/22 07/30/24 History release albuterol sulfate 90 mcg/actuation 2 puff inhalation QID PRN 06/21/22 07/30/24 Rx aerosol inhaler shortness of breath or wheezing #8.5 grams albuterol sulfate 90 mcg/actuation 1 inh inhalation QID #8.5 grams 11/02/23 07/30/24 Rx aerosol inhaler (Ventolin HFA) abiraterone 250 mg tablet 1,000 mg PO HS 03/26/24 07/30/24 History carvedilol 12.5 mg tablet 12.5 mg PO Q12H 03/26/24 07/30/24 History chlorthalidone 25 mg tablet 25 mg PO DAILY 03/26/24 07/30/24 History dorzolamide 22.3 mg-timolol 6.8 1 drp EACH EYE Q12H 03/26/24 07/30/24 History mg/mL eye drops insulin aspart U-100 100 unit/mL 1 sliding scale dose subcut TID 03/26/24 07/30/24 History (3 mL) subcutaneous pen (Novolog FlexPen U-100 Insulin aspart) lisinopril 20 mg tablet 40 mg PO DAILY 03/26/24 07/30/24 History oxycodone 5 mg tablet 5 mg PO Q6H PRN pain 03/26/24 07/30/24 History pravastatin 20 mg tablet 20 mg PO HS 03/26/24 07/30/24 History prednisone 5 mg tablet 5 mg PO Q12H 03/26/24 07/30/24 History sitagliptin phosphate 25 mg tablet 25 mg PO DAILY 03/26/24 07/30/24 History (Tonyia) ondansetron 4 mg disintegrating 4 mg PO Q8H PRN nausea and 07/29/24 07/30/24 Rx tablet vomiting #10 tabs Allergies Allergy/AdvReac Type Severity Reaction Status Date / Time No Known Drug Allergies Allergy Unknown Other Verified 07/29/24 09:30 Vital Signs Vital Signs - 24 hr 07/30/24 18:56 07/30/24 19:02 07/30/24 19:26 Temperature 98.0 F Pulse Rate 85 86 Respiratory Rate 20 Blood Pressure 127/52 L Pulse Oximetry 93 91 Oxygen Delivery Room Air Room Air Oxygen Flow Rate 07/30/24 19:48 07/30/24 20:09 07/30/24 20:45 Temperature Pulse Rate 86 102 H Respiratory Rate 22 H 21 H Blood Pressure 103/53 L 150/57 H Pulse Oximetry 94 92 97 Oxygen Delivery Oxygen Flow Rate 07/30/24 20:57 Temperature Pulse Rate Respiratory Rate Blood Pressure Pulse Oximetry 97 Oxygen Delivery Nasal Cannula Oxygen Flow Rate 2 Exam Narrative: Poor skin turgor Const: General: comfortable and no acute distress Other: A&O x3. Appears profusely weak. HENMT: Mouth: Yes dry mucous membranes Eyes: Pupils: Equal, round and reactive pupils present Resp: Effort & Inspection: normal respiratory effort Auscultation: clear to auscultation bilaterally Cardio: Rate: regular rate Rhythm: regular rhythm Heart sounds: no gallops, no murmurs and no rubs GI: GI Palp: Yes Soft to palpation and No Tenderness to palpation present (GI) Extrem: General: no edema H&P: Results Labs Labs: Short CBC 07/30/24 Range/Units 19:07 WBC 10.9 H (4.5-10.0) K/mm3 Hgb 10.4 L (14.0-18.0) g/dL Hct 33.8 L (42.0-52.0) % Plt Count 563 H (150-375) k/mm3 BMP 07/30/24 19:07 Sodium 131 L Potassium 3.9 Chloride 96 L Carbon Dioxide 24 BUN 54 H Creatinine 3.51 H Glucose 161 H Calcium 8.2 L Liver Function 07/30/24 Range/Units 19:07 Total Bilirubin 0.3 (0.2-1.3) mg/dL AST 30 (17-59) U/L ALT 22 (6-50) U/L Alkaline Phosphatase 122 (38-126) U/L Albumin 3.1 L (3.5-5.1) g/dL Urine 07/30/24 Range/Units 19:46 Urine Color Yellow (Yellow) Urine Appearance Clear (Clear) Urine pH 5.0 (5.0-9.0) Ur Specific Fence 1.013 (1.001-1.035) Urine Protein 1+ H (Negative) mg/dL Urine Glucose (UA) Negative (Negative) mg/dL Assessment and Plan Assessment and plan (1) Dehydration: Code(s): E86.0 - Dehydration Status: Acute (2) Hypovolemia: Code(s): E86.1 - Hypovolemia Status: Acute (3) GABRIELA (acute kidney injury): Code(s): N17.9 - Acute kidney failure, unspecified Status: Acute (4) Diarrhea: Code(s): R19.7 - Diarrhea, unspecified Status: Acute Plan 83-year-old male who with history of CKD stage 3, esophageal ulcer, paroxysmal atrial fibrillation, GERD, hyperlipidemia, hypertension, insulin- dependent diabetes mellitus presents with severe weakness and inability to ambulate as well as 6 days of diarrhea. He is accompanied by his whom he lives with and his knees. The patient was recently discharged from [facility] with complaint of diarrhea and weakness. He returns with progressive worsening of symptoms. Reports about 1 large loose liquid brown nonbloody stool per day. He has some nausea but no vomiting. No fever. He was also recently discharged from [facility] for cellulitis and receive antibiotics. Patient has barely had any oral intake per the family. On presentation to ER patient was hypotensive which was responsive to fluid resuscitation. She presents with serum creatinine 3.51. Received 1 L normal saline. ----- Due to gastrointestinal losses and poor p.o. intake the patient has presented with dehydration hypovolemia and GABRIELA. We will continue with volume resuscitation. Admit with telemetry. PT OT ordered. Dietitian and care coordination also consulted. The family would like the patient to be discharged to rehab instead of home this time. Check C diff. Continue to trend renal function status post fluid resuscitation. Patient has been taken off of Eliquis after bleeding ulcer diagnosed remotely. ----- Telemetry. Full code. Fall precautions. Ambulate with assistance. SCDs. Accu-Cheks a.c. HS with insulin sliding scale. 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 Hold HIGH SCHOOL HOME ECONOMICS TEACHER antihypertensives. Hospitalist MIPS Advance Care Plan I have confirmed that the patient's Advanced Care Plan is present, code status is documented, or surrogate decision maker is listed in patient medical record.: Yes Medication Reconciliation I have utilized all available resources to obtain, update and review the patients current medications (includes all prescriptions, OTC, herbals, cannabis, and nutritional supplements).: Yes
[2024-07-31] VITALS (20 sets, daily range): BP systolic 95–117; BP diastolic 42–55; PULSE 82–109; RESP 16–24; TEMP 36.6–38.9; O2SAT 94–100; BMI 29.0
[2024-07-31 05:11] LABS: Basophils Absolute Auto 0.1 K/mm3 (0.0-0.1); Basophils Percent Auto 0.4 % (0.2-1.2); Eosinophils Absolute Auto 0.3 K/mm3 (0-0.3); Eosinophils Percent Auto 2.9 % (0-4.4); Hemoglobin 10.7 g/dL (14.0-18.0); Immature Granulocyte Absolute 0.09 K/mm3 (0.00-0.031); Immature Granulocyte Percent A 0.8 % (0-0.5); Lymphocytes Absolute Auto 1.42 K/mm3 (0.9-3.2); Lymphocytes Percent Auto 12.7 % (18.3-44.2); Mean Corpuscular HGB Conc 30.6 g/dl (32-36); Mean Corpuscular Hemoglobin 27.5 pg (26-34); Mean Platelet Volume 9.7 fl (7.4-10.4); Monocytes Absolute Auto 1.1 K/mm3 (0.1-0.6); Monocytes Percent Auto 9.8 % (2.6-8.5); Neutrophils Absolute Auto 8.2 K/mm3 (1.3-6.7); Neutrophils Percent Auto 73.4 % (45.5-73.1); Platelet Count Result 592 k/mm3 (150-375); Red Blood Count 3.89 M/mm3 (4.6-6.20); Red Cell Distribution Width 13.6 % (11.5-14.5); White Blood Count 11.2 K/mm3 (4.5-10.0)
[2024-07-31 05:19] LABS: Anion Gap 9 mmol/L (4-12); Blood Urea Nitrogen 50 mg/dL (9-20); Calcium 7.9 mg/dL (8.4-10.2); Carbon Dioxide 25 mmol/L (22-30); Chloride 99 mmol/L (98-107); Estimated CRCL calculation 15 ml/min; Estimated Glomerular Filt Rate 17; Glucose 136 mg/dL (65-110); Magnesium 1.8 mg/dL (1.6-2.3); Phosphorus 4.5 mg/dL (2.5-4.5); Potassium 3.8 mmol/L (3.4-5.0); Sodium 133 mmol/L (137-145)
[2024-07-31] MEDS: PANTOPRAZOLE 40 MG TABLET PO (08:28)
[2024-07-31] MEDS: DORZOLAMIDE/TIMOLOL OPHTH SOL 10 ML BOTTLE 1 DROP EACH EYE ×2 (08:28→20:42)
[2024-07-31 08:29] LABS: Glucose Point of Care 148 mg/dl (65-105)
[2024-07-31 10:12] LABS: Base Excess ABG -3.4 mEq/l (+/-2.0); Fractional Inspired Oxygen 28 %; HCO3 ABG 22.3 mEq/l (22.0-26.0); Oxygen Content ABG 14.2 %vol (16.0-22.0); Oxygen Saturation ABG 96.3 % (95.0-100.0); Oxyhemoglobin 95.6 % THb (90.0-100.0); PCO2 ABG 42.7 mmHg (35.0-45.0); PO2 ABG 89.3 mmHg (80.0-100.0); PO2 FiO2 Ratio Arterial Blood 3.19 %; Total Hemoglobin 10.5 g/dL (12.0-18.0); pH ABG 7.335 (7.350-7.450)
[2024-07-31 10:13] LABS: Device NASAL CANNULA; Modified Allen's Test Pass; Site Drawn LEFT RADIAL
[2024-07-31] MEDS: SODIUM CHLORIDE 0.9% IV 1,000 ML 75 ML IV CONT (10:24)
[2024-07-31 12:07] LABS: Glucose Point of Care 186 mg/dl (65-105)
--- NOTE | 2024-07-31 12:25 | P.PNIM_ITS ---
Progress Note: A&P Assessment and Plan (1) Dehydration: Code(s): E86.0 - Dehydration Status: Acute (2) Hypovolemia: Code(s): E86.1 - Hypovolemia Status: Acute (3) GABRIELA (acute kidney injury): Code(s): N17.9 - Acute kidney failure, unspecified Status: Acute (4) Diarrhea: Code(s): R19.7 - Diarrhea, unspecified Status: Acute Plan GABRIELA on CKD from diarrhea and poor oral intake Cr 3.44 from 3.51, baseline 2.22 continue IVF and monitor Diarrhea Patient presented with Diarrhea but has not had any bowel movement since yesterday Continue IVF and monitor COPD continue bronchodilator and Pulmicort inhalation pAfib Continue Coreg and investigate why patient is not on anticoagulation DM2 SSi with accucheks HTN titrate home meds with clinical course DVT prophylaxis on Sq Lovenox Subjective Date/time seen: 07/31/24 12:25 Interval history: complaining of SOB CXR clear lungs Review of Systems Review of Systems: All systems reviewed & are unremarkable except as noted in HPI and below (HPI) Exam Narrative: Poor skin turgor Const: General: comfortable and no acute distress Other: A&O x3. Appears profusely weak. HENMT: Mouth: Yes dry mucous membranes Eyes: Pupils: Equal, round and reactive pupils present Resp: Effort & Inspection: normal respiratory effort Auscultation: clear to auscultation bilaterally Cardio: Rate: regular rate Rhythm: regular rhythm Heart sounds: no gallops, no murmurs and no rubs Neuro: Cranial nerves: Yes Equal, round and reactive pupils present Extrem: General: no edema Objective Data Vital Signs Vital Signs: Vital Signs - 24 hr 07/30/24 18:56 07/30/24 19:02 07/30/24 19:26 Temperature 98.0 F Pulse Rate 85 86 Respiratory Rate 20 Blood Pressure 127/52 L Pulse Oximetry 93 91 Oxygen Delivery Room Air Room Air Oxygen Flow Rate 07/30/24 19:48 07/30/24 20:09 07/30/24 20:17 Temperature Pulse Rate 86 102 H Respiratory Rate 22 H 21 H Blood Pressure 103/53 L 150/57 H Pulse Oximetry 94 92 97 Oxygen Delivery Nasal Cannula Oxygen Flow Rate 2 07/30/24 20:45 07/30/24 20:57 07/31/24 00:00 Temperature Pulse Rate 93 Respiratory Rate Blood Pressure Pulse Oximetry 97 97 Oxygen Delivery Nasal Cannula Oxygen Flow Rate 2 07/31/24 00:08 07/31/24 04:00 07/31/24 04:36 Temperature 99.4 F 98.1 F Pulse Rate 83 86 95 Respiratory Rate 16 16 Blood Pressure 100/48 L Pulse Oximetry 100 99 Oxygen Delivery Oxygen Flow Rate 07/31/24 04:36 07/31/24 04:45 07/31/24 08:00 Temperature 98.1 F Pulse Rate 95 Respiratory Rate 16 Blood Pressure 95/50 L 98/52 L Pulse Oximetry 99 97 Oxygen Delivery Nasal Cannula Oxygen Flow Rate 2 07/31/24 08:00 07/31/24 08:00 07/31/24 08:45 Temperature 99.8 F H Pulse Rate 93 87 Respiratory Rate 22 H Blood Pressure 117/42 L Pulse Oximetry 100 97 Oxygen Delivery Nasal Cannula Oxygen Flow Rate 2 07/31/24 11:27 Temperature Pulse Rate Respiratory Rate Blood Pressure Pulse Oximetry Oxygen Delivery Nasal Cannula Oxygen Flow Rate 2 Intake/Output Intake/Output: Intake & Output 07/28/24 07/29/24 07/30/24 07/31/24 23:59 23:59 23:59 23:59 Intake Total 1200 Output Total 250 Balance 950 Meds/Results Medications: Active Medications Generic Name Dose Route Start Last Admin Trade Name Freq PRN Reason Stop Dose Admin Albuterol 2 puff 07/31/24 02:08 Albuterol Sulfate (*Sp) Aerosol 1 Puff INHALATION QID PRN shortness of breath or wheezing Albuterol/Ipratropium 3 ml 07/31/24 14:00 Ipratropium 0.5 Mg/Albuterol Sulfate 2.5 Mg Ampul.Neb 3 Ml INHALATION Q6HRT PJ Dextrose 12.5 gm 07/30/24 21:34 Dextrose 50% 25 Gm/50 Ml Syringe IV PUSH PRN PRN Hypoglycemia Protocol Dorzolamide/Timolol 1 drop 07/31/24 09:00 07/31/24 08:28 Dorzolamide/Timolol Ophth Sarah 10 Ml Bottle EACH EYE 1 drop Q12HR PJ Administration Glucagon 1 mg 07/30/24 21:34 Glucagon For Inj 1 Mg Vial IM PRN PRN Hypoglycemia Protocol Glucose 15 gm 07/30/24 21:34 Glucose Oral Gel 15 Gm Of Glucse In 37.5 Gm Tube PO PRN PRN Hypoglycemia Protocol Dextrose 1,000 mls @ 100 mls/hr 07/30/24 21:34 Dextrose 5% 1,000 Ml IVPB PRN PRN Hypoglycemia Protocol Sodium Chloride 1,000 mls @ 75 mls/hr 07/31/24 09:45 07/31/24 10:24 Normal Saline Iv IV CONT 75 mls/hr .[id number] PJ Administration Insulin Aspart 2 - 5 units 07/31/24 08:00 07/31/24 12:23 Insulin Aspart (*Bkc) 100 Units/Ml SUB-Q Not Given TIDWM PJ Protocol Insulin Aspart 1 - 2 units 07/31/24 21:00 Insulin Aspart (*Bkc) 100 Units/Ml SUB-Q HS PJ Protocol Ondansetron HCl 4 mg 07/31/24 09:44 Ondansetron Inj 4 Mg/2 Ml Vial IV PUSH Q4H PRN Nausea And Vomiting Pantoprazole Sodium 40 mg 07/31/24 09:00 07/31/24 08:28 Pantoprazole 40 Mg Tablet PO 40 mg DAILY PJ Administration Radiology Results: ITS Impressions Chest X-Ray 07/31/24 10:50 Impression: Clear lungs. Labs Labs: Laboratory Results - last 24 hr 07/30/24 07/30/24 07/31/24 19:07 19:46 04:37 WBC 10.9 H 11.2 H RBC 3.86 L 3.89 L Hgb 10.4 L 10.7 L Hct 33.8 L 35.0 L MCV 87.6 90.0 MCH 26.9 27.5 MCHC 30.8 L 30.6 L RDW 13.5 13.6 Plt Count 563 H 592 H MPV 9.8 9.7 Immature Gran % (Auto) 1.0 H 0.8 H Neut % (Auto) 70.4 73.4 H Lymph % (Auto) 13.6 L 12.7 L [place] % (Auto) 10.6 H 9.8 H Eos % (Auto) 4.0 2.9 Baso % (Auto) 0.4 0.4 Lymph # (Auto) 1.48 1.42 [place] # (Auto) 1.2 H 1.1 H Eos # (Auto) 0.4 H 0.3 Baso # (Auto) 0.0 0.1 Abs Immat Gran (auto) 0.11 H 0.09 H Absolute Neuts (auto) 7.6 H 8.2 H Absolute Nucleated RBC 0.000 0.000 Nucleated RBC % 0.0 0.0 Puncture Site ABG pH ABG pCO2 ABG pO2 ABG PO2/FiO2 Ratio ABG HCO3 ABG O2 Saturation ABG O2 Content ABG Base Excess A-a Gradient Oxyhemoglobin Total Hemoglobin O2 Delivery Device O2 Liters/Min FiO2 Sodium 131 L 133 L Potassium 3.9 3.8 Chloride 96 L 99 Carbon Dioxide 24 25 Anion Gap 11 9 BUN 54 H 50 H Creatinine 3.51 H 3.44 H Estim Creat Clear Calc 16 15 Estimated GFR 17 L 17 L Glucose 161 H 136 H POC Capillary Glucose Calcium 8.2 L 7.9 L Phosphorus 4.5 Magnesium 1.9 1.8 Total Bilirubin 0.3 AST 30 ALT 22 Alkaline Phosphatase 122 Total Protein 6.0 L Albumin 3.1 L Urine Color Yellow Urine Appearance Clear Urine pH 5.0 Ur Specific [place] 1.013 Urine Protein 1+ H Urine Glucose (UA) Negative Urine Ketones Negative Ur Blood (Man) Negative Urine Nitrate Negative Urine Bilirubin Negative Urine Urobilinogen 0.2 Add Ur Microanalysis Reviewed Leukocyte Esterase Rfl Negative Urine RBC 0-2 Urine WBC 0-5 Ur Squamous Epith Cells None seen Urine Bacteria None seen Urine Casts 11-20 Hyaline Casts Present 07/31/24 07/31/24 07/31/24 08:01 10:02 12:00 WBC RBC Hgb Hct MCV MCH MCHC RDW Plt Count MPV Immature Gran % (Auto) Neut % (Auto) Lymph % (Auto) [place] % (Auto) Eos % (Auto) Baso % (Auto) Lymph # (Auto) [place] # (Auto) Eos # (Auto) Baso # (Auto) Abs Immat Gran (auto) Absolute Neuts (auto) Absolute Nucleated RBC Nucleated RBC % Puncture Site Left radial ABG pH 7.335 L ABG pCO2 42.7 ABG pO2 89.3 ABG PO2/FiO2 Ratio 3.19 ABG HCO3 22.3 ABG O2 Saturation 96.3 ABG O2 Content 14.2 L ABG Base Excess -3.4 A-a Gradient 60.0 Oxyhemoglobin 95.6 Total Hemoglobin 10.5 L O2 Delivery Device Nasal cannula O2 Liters/Min 2.0 FiO2 28 Sodium Potassium Chloride Carbon Dioxide Anion Gap BUN Creatinine Estim Creat Clear Calc Estimated GFR Glucose POC Capillary Glucose 148 H 186 H Calcium Phosphorus Magnesium Total Bilirubin AST ALT Alkaline Phosphatase Total Protein Albumin Urine Color Urine Appearance Urine pH Ur Specific [place] Urine Protein Urine Glucose (UA) Urine Ketones Ur Blood (Man) Urine Nitrate Urine Bilirubin Urine Urobilinogen Add Ur Microanalysis Leukocyte Esterase Rfl Urine RBC Urine WBC Ur Squamous Epith Cells Urine Bacteria Urine Casts Hyaline Casts
[2024-07-31] MEDS: IPRATROPIUM 0.5 MG/ALBUTEROL SULFATE 2.5 MG AMPUL.NEB 3 ML INHALATION ×2 (14:29→19:57)
[2024-07-31] MEDS: ACETAMINOPHEN 325 MG TABLET 650 MG PO (14:39)
[2024-07-31 17:16] LABS: Glucose Point of Care 201 mg/dl (65-105)
[2024-07-31] MEDS: INSULIN ASPART (*BKC) 100 UNITS/ML SUB-Q ×2 (17:26→20:38)
[2024-07-31] MEDS: predniSONE 5 MG TABLET PO (18:17)
[2024-07-31] MEDS: BUDESONIDE RESPULE NEB 0.5 MG/2 ML AMP INHALATION (19:57)
[2024-07-31] MEDS: carvediloL 12.5 MG TABLET PO (20:41)
[2024-07-31 21:06] LABS: Glucose Point of Care 231 mg/dl (65-105)
[2024-08-01] VITALS (20 sets, daily range): BP systolic 97–110; BP diastolic 46–71; PULSE 62–87; RESP 16–22; TEMP 36.7–36.8; O2SAT 94–97
[2024-08-01] MEDS: SODIUM CHLORIDE 0.9% IV 1,000 ML 75 ML IV CONT ×2 (00:53→12:40)
[2024-08-01] MEDS: IPRATROPIUM 0.5 MG/ALBUTEROL SULFATE 2.5 MG AMPUL.NEB 3 ML INHALATION ×4 (02:30→19:27)
[2024-08-01 04:47] LABS: Basophils Percent Auto 0.3 % (0.2-1.2); Eosinophils Absolute Auto 0.1 K/mm3 (0-0.3); Eosinophils Percent Auto 0.5 % (0-4.4); Hematocrit 27.4 % (42.0-52.0); Hemoglobin 8.4 g/dL (14.0-18.0); Immature Granulocyte Absolute 0.12 K/mm3 (0.00-0.031); Immature Granulocyte Percent A 0.9 % (0-0.5); Lymphocytes Absolute Auto 0.64 K/mm3 (0.9-3.2); Lymphocytes Percent Auto 4.9 % (18.3-44.2); Mean Corpuscular HGB Conc 30.7 g/dl (32-36); Mean Corpuscular Hemoglobin 27.5 pg (26-34); Mean Corpuscular Volume 89.5 fl (80-100); Mean Platelet Volume 9.9 fl (7.4-10.4); Monocytes Absolute Auto 0.8 K/mm3 (0.1-0.6); Monocytes Percent Auto 6.1 % (2.6-8.5); Neutrophils Absolute Auto 11.3 K/mm3 (1.3-6.7); Neutrophils Percent Auto 87.3 % (45.5-73.1); Platelet Count Result 565 k/mm3 (150-375); Red Blood Count 3.06 M/mm3 (4.6-6.20); Red Cell Distribution Width 13.7 % (11.5-14.5)
[2024-08-01 05:01] LABS: Alanine Aminotransferase 16 U/L (6-50); Albumin Level 2.6 g/dL (3.5-5.1); Alkaline Phosphatase 96 U/L (38-126); Anion Gap 8 mmol/L (4-12); Aspartate Amino Transferase 20 U/L (17-59); Bilirubin,Total 0.2 mg/dL (0.2-1.3); Blood Urea Nitrogen 54 mg/dL (9-20); Calcium 7.5 mg/dL (8.4-10.2); Carbon Dioxide 21 mmol/L (22-30); Chloride 100 mmol/L (98-107); Estimated CRCL calculation 17 ml/min; Estimated Glomerular Filt Rate 19; Glucose 244 mg/dL (65-110); Magnesium 1.7 mg/dL (1.6-2.3); Potassium 4.6 mmol/L (3.4-5.0); Sodium 129 mmol/L (137-145)
[2024-08-01 05:21] LABS: Platelet Estimate Increased (Adequate)
[2024-08-01 05:22] LABS: Anisocytosis 1+; Hypochromasia 1+; Ovalocytes 1+; Schistocytes None Seen
[2024-08-01] MEDS: predniSONE 5 MG TABLET PO ×2 (06:02→18:33)
[2024-08-01 08:00] LABS: Glucose Point of Care 198 mg/dl (65-105)
[2024-08-01] MEDS: ENOXAPARIN 30 MG/0.3 ML SYRINGE SUB-Q (08:09)
[2024-08-01] MEDS: carvediloL 12.5 MG TABLET PO (08:09)
[2024-08-01] MEDS: PANTOPRAZOLE 40 MG TABLET PO (08:09)
[2024-08-01] MEDS: DORZOLAMIDE/TIMOLOL OPHTH SOL 10 ML BOTTLE 1 DROP EACH EYE ×2 (08:10→20:39)
[2024-08-01] MEDS: BUDESONIDE RESPULE NEB 0.5 MG/2 ML AMP INHALATION ×2 (09:03→19:27)
--- NOTE | 2024-08-01 09:11 | PM.IMPN ---
Progress Note: A&P Assessment and Plan (1) Dehydration: Code(s): E86.0 - Dehydration Status: Acute (2) Hypovolemia: Code(s): E86.1 - Hypovolemia Status: Acute (3) GABRIELA (acute kidney injury): Code(s): N17.9 - Acute kidney failure, unspecified Status: Acute (4) Diarrhea: Code(s): R19.7 - Diarrhea, unspecified Status: Acute Plan GABRIELA on CKD from diarrhea and poor oral intake Cr 3.44 from 3.51, baseline 2.22 continue IVF and monitor Diarrhea Patient presented with Diarrhea but has not had any bowel movement since yesterday Continue IVF and monitor COPD continue bronchodilator and Pulmicort inhalation pAfib Continue Coreg and investigate why patient is not on anticoagulation DM2 SSi with accucheks HTN titrate home meds with clinical course DVT prophylaxis on Sq Lovenox Subjective Date/time seen: 08/01/24 09:11 Interval history: Evaluated the patient along with his . Patient lives with his in home. 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 Follows with the oncologist at [facility]. Patient was recently admitted in the hospital due to right hand and arm cellulitis and discharged with antibiotic which he was not able to tolerate. Patient was again readmitted due to diarrhea. He also follows up with Cardiology Nephrology at [facility]. Review of Systems Review of Systems: All systems reviewed & are unremarkable except as noted in HPI and below (HPI) Exam Narrative: Poor skin turgor Const: General: comfortable and no acute distress Other: A&O x3. Appears profusely weak. HENMT: Mouth: Yes dry mucous membranes Eyes: Pupils: Equal, round and reactive pupils present Resp: Effort & Inspection: normal respiratory effort Auscultation: clear to auscultation bilaterally Cardio: Rate: regular rate Rhythm: regular rhythm Heart sounds: no gallops, no murmurs and no rubs Neuro: Cranial nerves: Yes Equal, round and reactive pupils present Extrem: General: no edema Objective Data Vital Signs Vital Signs: Vital Signs - 24 hr 07/31/24 11:27 07/31/24 12:00 07/31/24 12:00 Temperature 102 F H Pulse Rate 92 89 Respiratory Rate 24 H Blood Pressure 115/48 L Pulse Oximetry 95 Oxygen Delivery Nasal Cannula Oxygen Flow Rate 2 07/31/24 12:49 07/31/24 14:33 07/31/24 14:33 Temperature Pulse Rate 82 Respiratory Rate 20 Blood Pressure Pulse Oximetry 94 Oxygen Delivery Nasal Cannula Nasal Cannula Oxygen Flow Rate 2 2 07/31/24 14:38 07/31/24 14:39 07/31/24 15:52 Temperature 102.0 F H 98.9 F Pulse Rate 84 Respiratory Rate 20 Blood Pressure Pulse Oximetry Oxygen Delivery Oxygen Flow Rate 07/31/24 16:00 07/31/24 16:00 07/31/24 16:03 Temperature 97.8 F 98.9 F Pulse Rate 96 97 Respiratory Rate 18 Blood Pressure 103/44 L Pulse Oximetry 95 Oxygen Delivery Oxygen Flow Rate 07/31/24 19:57 07/31/24 20:00 07/31/24 20:00 Temperature Pulse Rate 84 90 Respiratory Rate 20 Blood Pressure Pulse Oximetry 95 Oxygen Delivery Nasal Cannula Oxygen Flow Rate 2 07/31/24 20:12 07/31/24 20:35 07/31/24 20:41 Temperature Pulse Rate 84 109 H 109 H Respiratory Rate 20 18 Blood Pressure 110/55 L Pulse Oximetry 100 Oxygen Delivery Oxygen Flow Rate 07/31/24 20:53 08/01/24 00:00 08/01/24 01:31 Temperature Pulse Rate 75 73 Respiratory Rate 16 Blood Pressure 110/71 Pulse Oximetry 95 96 Oxygen Delivery Nasal Cannula Oxygen Flow Rate 2 08/01/24 02:30 08/01/24 02:41 08/01/24 04:00 Temperature Pulse Rate 84 87 75 Respiratory Rate 20 20 Blood Pressure Pulse Oximetry Oxygen Delivery Oxygen Flow Rate 08/01/24 05:00 08/01/24 08:00 08/01/24 08:09 Temperature 98.0 F 98.1 F Pulse Rate 77 80 80 Respiratory Rate 16 16 Blood Pressure 110/52 L Pulse Oximetry 96 95 Oxygen Delivery Oxygen Flow Rate 08/01/24 09:05 08/01/24 09:05 Temperature Pulse Rate 76 Respiratory Rate 22 H Blood Pressure Pulse Oximetry 94 Oxygen Delivery Nasal Cannula Oxygen Flow Rate 2 Intake/Output Intake/Output: Intake & Output 07/29/24 07/30/24 07/31/24 08/01/24 23:59 23:59 23:59 23:59 Intake Total 1200 1360 Output Total 250 375 100 Balance 950 985 -100 Meds/Results Medications: Active Medications Generic Name Dose Route Start Last Admin Trade Name Freq PRN Reason Stop Dose Admin Acetaminophen 650 mg 07/31/24 14:19 07/31/24 14:39 Acetaminophen 325 Mg Tablet PO 650 mg Q4H PRN Administration Mild Pain (1-3) or Fever Albuterol 2 puff 07/31/24 02:08 Albuterol Sulfate (*Sp) Aerosol 1 Puff INHALATION QID PRN shortness of breath or wheezing Albuterol/Ipratropium 3 ml 07/31/24 14:00 08/01/24 09:03 Ipratropium 0.5 Mg/Albuterol Sulfate 2.5 Mg Ampul.Neb 3 Ml INHALATION 3 ml Q6HRT PJ Administration Budesonide 0.5 mg 07/31/24 20:00 08/01/24 09:03 Budesonide Respule Neb 0.5 Mg/2 Ml Amp INHALATION 0.5 mg Q12HRT PJ Administration Carvedilol 12.5 mg 07/31/24 13:10 08/01/24 08:09 Carvedilol 12.5 Mg Tablet PO 12.5 mg Q12HR PJ Administration Dextrose 12.5 gm 07/30/24 21:34 Dextrose 50% 25 Gm/50 Ml Syringe IV PUSH PRN PRN Hypoglycemia Protocol Dorzolamide/Timolol 1 drop 07/31/24 09:00 08/01/24 08:10 Dorzolamide/Timolol Ophth Sarah 10 Ml Bottle EACH EYE 1 drop Q12HR PJ Administration Enoxaparin Sodium 30 mg 08/01/24 09:00 08/01/24 08:09 Enoxaparin 30 Mg/0.3 Ml Syringe SUB-Q 30 mg DAILY PJ Administration Glucagon 1 mg 07/30/24 21:34 Glucagon For Inj 1 Mg Vial IM PRN PRN Hypoglycemia Protocol Glucose 15 gm 07/30/24 21:34 Glucose Oral Gel 15 Gm Of Glucse In 37.5 Gm Tube PO PRN PRN Hypoglycemia Protocol Dextrose 1,000 mls @ 100 mls/hr 07/30/24 21:34 Dextrose 5% 1,000 Ml IVPB PRN PRN Hypoglycemia Protocol Sodium Chloride 1,000 mls @ 75 mls/hr 07/31/24 09:45 08/01/24 00:53 Normal Saline Iv IV CONT 75 mls/hr .[id number] PJ Administration Insulin Aspart 2 - 5 units 07/31/24 08:00 08/01/24 08:06 Insulin Aspart (*Bkc) 100 Units/Ml SUB-Q Not Given TIDWM PJ Protocol Insulin Aspart 1 - 2 units 07/31/24 21:00 07/31/24 20:38 Insulin Aspart (*Bkc) 100 Units/Ml SUB-Q 1 units HS PJ Administration Protocol Ondansetron HCl 4 mg 07/31/24 09:44 Ondansetron Inj 4 Mg/2 Ml Vial IV PUSH Q4H PRN Nausea And Vomiting Pantoprazole Sodium 40 mg 07/31/24 09:00 08/01/24 08:09 Pantoprazole 40 Mg Tablet PO 40 mg DAILY PJ Administration Prednisone 5 mg 07/31/24 19:00 08/01/24 06:02 Prednisone 5 Mg Tablet PO 5 mg Q12H PJ Administration Radiology Results: ITS Impressions Chest X-Ray 07/31/24 10:50 Impression: Clear lungs. Chest CT 07/31/24 15:17 IMPRESSION: 1. Mild reticular and groundglass opacities in the basilar and dependent lungs with favor atelectasis or mild pulmonary edema over pneumonia. 2. Mild emphysema. Labs Labs: Laboratory Results - last 24 hr 07/31/24 07/31/24 07/31/24 10:02 12:00 15:34 WBC RBC Hgb Hct MCV MCH MCHC RDW Plt Count MPV Immature Gran % (Auto) Neut % (Auto) Lymph % (Auto) [place] % (Auto) Eos % (Auto) Baso % (Auto) Lymph # (Auto) [place] # (Auto) Eos # (Auto) Baso # (Auto) Abs Immat Gran (auto) Absolute Neuts (auto) Absolute Nucleated RBC Band Neutrophils % Nucleated RBC % Platelet Estimate Hypochromasia Anisocytosis Ovalocytes Schistocytes Puncture Site Left radial ABG pH 7.335 L ABG pCO2 42.7 ABG pO2 89.3 ABG PO2/FiO2 Ratio 3.19 ABG HCO3 22.3 ABG O2 Saturation 96.3 ABG O2 Content 14.2 L ABG Base Excess -3.4 A-a Gradient 60.0 Oxyhemoglobin 95.6 Total Hemoglobin 10.5 L O2 Delivery Device Nasal cannula O2 Liters/Min 2.0 FiO2 28 Sodium Potassium Chloride Carbon Dioxide Anion Gap BUN Creatinine Estim Creat Clear Calc Estimated GFR Glucose POC Capillary Glucose 186 H Lactic Acid 1.0 Calcium Magnesium Total Bilirubin AST ALT Alkaline Phosphatase Total Protein Albumin 07/31/24 07/31/24 08/01/24 17:03 20:36 04:14 WBC 13.0 H RBC 3.06 L Hgb 8.4 L Hct 27.4 L MCV 89.5 MCH 27.5 MCHC 30.7 L RDW 13.7 Plt Count 565 H MPV 9.9 Immature Gran % (Auto) 0.9 H Neut % (Auto) 87.3 H Lymph % (Auto) 4.9 L [place] % (Auto) 6.1 Eos % (Auto) 0.5 Baso % (Auto) 0.3 Lymph # (Auto) 0.64 L [place] # (Auto) 0.8 H Eos # (Auto) 0.1 Baso # (Auto) 0.0 Abs Immat Gran (auto) 0.12 H Absolute Neuts (auto) 11.3 H Absolute Nucleated RBC 0.000 Band Neutrophils % Not Reportable Nucleated RBC % 0.0 Platelet Estimate Increased Hypochromasia 1+ Anisocytosis 1+ Ovalocytes 1+ Schistocytes None seen Puncture Site ABG pH ABG pCO2 ABG pO2 ABG PO2/FiO2 Ratio ABG HCO3 ABG O2 Saturation ABG O2 Content ABG Base Excess A-a Gradient Oxyhemoglobin Total Hemoglobin O2 Delivery Device O2 Liters/Min FiO2 Sodium 129 L Potassium 4.6 Chloride 100 Carbon Dioxide 21 L Anion Gap 8 BUN 54 H Creatinine 3.17 H Estim Creat Clear Calc 17 Estimated GFR 19 L Glucose 244 H POC Capillary Glucose 201 H 231 H Lactic Acid Calcium 7.5 L Magnesium 1.7 Total Bilirubin 0.2 AST 20 ALT 16 Alkaline Phosphatase 96 Total Protein 5.0 L Albumin 2.6 L 08/01/24 07:52 WBC RBC Hgb Hct MCV MCH MCHC RDW Plt Count MPV Immature Gran % (Auto) Neut % (Auto) Lymph % (Auto) [place] % (Auto) Eos % (Auto) Baso % (Auto) Lymph # (Auto) [place] # (Auto) Eos # (Auto) Baso # (Auto) Abs Immat Gran (auto) Absolute Neuts (auto) Absolute Nucleated RBC Band Neutrophils % Nucleated RBC % Platelet Estimate Hypochromasia Anisocytosis Ovalocytes Schistocytes Puncture Site ABG pH ABG pCO2 ABG pO2 ABG PO2/FiO2 Ratio ABG HCO3 ABG O2 Saturation ABG O2 Content ABG Base Excess A-a Gradient Oxyhemoglobin Total Hemoglobin O2 Delivery Device O2 Liters/Min FiO2 Sodium Potassium Chloride Carbon Dioxide Anion Gap BUN Creatinine Estim Creat Clear Calc Estimated GFR Glucose POC Capillary Glucose 198 H Lactic Acid Calcium Magnesium Total Bilirubin AST ALT Alkaline Phosphatase Total Protein Albumin Hospitalist MIPS Advance Care Plan I have confirmed that the patient's Advanced Care Plan is present, code status is documented, or surrogate decision maker is listed in patient medical record.: Yes Medication Reconciliation I have utilized all available resources to obtain, update and review the patients current medications (includes all prescriptions, OTC, herbals, cannabis, and nutritional supplements).: Yes
[2024-08-01 12:13] LABS: Glucose Point of Care 263 mg/dl (65-105)
[2024-08-01] MEDS: INSULIN ASPART (*BKC) 100 UNITS/ML SUB-Q ×3 (12:34→20:35)
[2024-08-01 16:50] LABS: Glucose Point of Care 318 mg/dl (65-105)
[2024-08-01 21:14] LABS: Glucose Point of Care 256 mg/dl (65-105)
[2024-08-02] VITALS (20 sets, daily range): BP systolic 96–166; BP diastolic 48–81; PULSE 53–103; RESP 14–20; TEMP 36.4–37.2; O2SAT 93–100
[2024-08-02] MEDS: SODIUM CHLORIDE 0.9% IV 1,000 ML 75 ML IV CONT (01:51)
[2024-08-02] MEDS: IPRATROPIUM 0.5 MG/ALBUTEROL SULFATE 2.5 MG AMPUL.NEB 3 ML INHALATION ×4 (02:01→20:16)
[2024-08-02 05:40] LABS: Hematocrit 28.2 % (42.0-52.0); Hemoglobin 8.8 g/dL (14.0-18.0); Mean Corpuscular HGB Conc 31.2 g/dl (32-36); Mean Corpuscular Hemoglobin 27.3 pg (26-34); Mean Corpuscular Volume 87.6 fl (80-100); Mean Platelet Volume 9.7 fl (7.4-10.4); Platelet Count Result 614 k/mm3 (150-375); Red Blood Count 3.22 M/mm3 (4.6-6.20); Red Cell Distribution Width 13.7 % (11.5-14.5); White Blood Count 12.8 K/mm3 (4.5-10.0)
[2024-08-02 05:55] LABS: Alanine Aminotransferase 19 U/L (6-50); Albumin Level 2.7 g/dL (3.5-5.1); Alkaline Phosphatase 108 U/L (38-126); Anion Gap 8 mmol/L (4-12); Aspartate Amino Transferase 24 U/L (17-59); Bilirubin,Total 0.2 mg/dL (0.2-1.3); Blood Urea Nitrogen 51 mg/dL (9-20); Calcium 7.8 mg/dL (8.4-10.2); Carbon Dioxide 23 mmol/L (22-30); Chloride 103 mmol/L (98-107); Estimated CRCL calculation 21 ml/min; Estimated Glomerular Filt Rate 24; Glucose 211 mg/dL (65-110); Potassium 4.7 mmol/L (3.4-5.0); Sodium 134 mmol/L (137-145)
[2024-08-02] MEDS: predniSONE 5 MG TABLET PO ×2 (06:13→18:14)
[2024-08-02 08:12] LABS: Glucose Point of Care 209 mg/dl (65-105)
[2024-08-02] MEDS: BUDESONIDE RESPULE NEB 0.5 MG/2 ML AMP INHALATION ×2 (08:39→20:16)
[2024-08-02] MEDS: carvediloL 12.5 MG TABLET PO ×2 (09:02→20:13)
[2024-08-02] MEDS: PANTOPRAZOLE 40 MG TABLET PO (09:02)
[2024-08-02] MEDS: ENOXAPARIN 30 MG/0.3 ML SYRINGE SUB-Q (09:02)
[2024-08-02] MEDS: DORZOLAMIDE/TIMOLOL OPHTH SOL 10 ML BOTTLE 1 DROP EACH EYE ×2 (09:03→20:12)
[2024-08-02] MEDS: INSULIN ASPART (*BKC) 100 UNITS/ML SUB-Q ×4 (09:04→20:08)
--- NOTE | 2024-08-02 09:48 | PM.IMPN ---
Progress Note: A&P Assessment and Plan (1) Dehydration: Code(s): E86.0 - Dehydration Status: Acute (2) Hypovolemia: Code(s): E86.1 - Hypovolemia Status: Acute (3) GABRIELA (acute kidney injury): Code(s): N17.9 - Acute kidney failure, unspecified Status: Acute (4) Diarrhea: Code(s): R19.7 - Diarrhea, unspecified Status: Acute Plan GABRIELA on CKD from diarrhea and poor oral intake Cr downtrending, baseline 2.22 continue IVF and monitor Diarrhea Patient presented with Diarrhea but has not had any bowel movement since yesterday Continue IVF and monitor COPD continue bronchodilator and Pulmicort inhalation pAfib Continue Coreg and investigate why patient is not on anticoagulation DM2 SSi with accucheks HTN titrate home meds with clinical course DVT prophylaxis on Sq Lovenox Subjective Date/time seen: 08/02/24 09:48 Interval history: Interval Hx: Patient lives with his in home. 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 Follows with the oncologist at [facility]. Patient was recently admitted in the hospital due to right hand and arm cellulitis and discharged with antibiotic which he was not able to tolerate. Patient was again readmitted due to diarrhea. He also follows up with Cardiology Nephrology at [facility]. 08/02: Advise to engage oral fluid intake. DC the fluids. Will monitor the creatinine and possible discharge tomorrow. Denies any diarrhea during the hospitalization although that was the main reason he came to hospital Review of Systems Review of Systems: All systems reviewed & are unremarkable except as noted in HPI and below (HPI) Exam Narrative: Poor skin turgor Const: General: comfortable and no acute distress Other: A&O x3. Appears profusely weak. HENMT: Mouth: Yes dry mucous membranes Eyes: Pupils: Equal, round and reactive pupils present Resp: Effort & Inspection: normal respiratory effort Auscultation: clear to auscultation bilaterally Cardio: Rate: regular rate Rhythm: regular rhythm Heart sounds: no gallops, no murmurs and no rubs Neuro: Cranial nerves: Yes Equal, round and reactive pupils present Extrem: General: no edema Objective Data Vital Signs Vital Signs: Vital Signs - 24 hr 08/01/24 12:00 08/01/24 15:08 08/01/24 15:15 Temperature 98.0 F Pulse Rate 75 72 74 Respiratory Rate 20 20 20 Blood Pressure 108/51 L Pulse Oximetry 97 Oxygen Delivery Fraction of Inspired Oxygen 08/01/24 16:00 08/01/24 16:00 08/01/24 19:28 Temperature 98.3 F Pulse Rate 81 76 62 Respiratory Rate 18 16 Blood Pressure 105/48 L Pulse Oximetry 96 Oxygen Delivery Fraction of Inspired Oxygen 08/01/24 19:36 08/01/24 19:44 08/01/24 20:00 Temperature Pulse Rate 70 Respiratory Rate 16 Blood Pressure Pulse Oximetry 95 Oxygen Delivery Room Air Room Air Fraction of Inspired Oxygen 21 08/01/24 20:00 08/01/24 20:32 08/01/24 20:41 Temperature Pulse Rate 72 77 Respiratory Rate 18 Blood Pressure 97/46 L Pulse Oximetry 96 Oxygen Delivery Fraction of Inspired Oxygen 08/02/24 00:00 08/02/24 00:43 08/02/24 02:01 Temperature 98.4 F Pulse Rate 67 72 72 Respiratory Rate 16 16 Blood Pressure 96/48 L Pulse Oximetry 97 Oxygen Delivery Fraction of Inspired Oxygen 08/02/24 02:08 08/02/24 04:00 08/02/24 06:19 Temperature 97.6 F Pulse Rate 76 77 83 Respiratory Rate 18 14 Blood Pressure 110/62 Pulse Oximetry 93 Oxygen Delivery Fraction of Inspired Oxygen 08/02/24 08:00 08/02/24 08:40 08/02/24 08:40 Temperature 97.8 F Pulse Rate 82 103 H Respiratory Rate 18 18 Blood Pressure 166/74 H Pulse Oximetry 100 94 Oxygen Delivery Room Air Fraction of Inspired Oxygen 08/02/24 08:53 08/02/24 09:02 Temperature Pulse Rate 96 87 Respiratory Rate 20 Blood Pressure Pulse Oximetry Oxygen Delivery Fraction of Inspired Oxygen Intake/Output Intake/Output: Intake & Output 07/30/24 07/31/24 08/01/24 08/02/24 23:59 23:59 23:59 23:59 Intake Total 1200 1360 1483.7 1628.7 Output Total 250 893 559 9484 Balance 950 985 633.7 628.7 Meds/Results Medications: Active Medications Generic Name Dose Route Start Last Admin Trade Name Freq PRN Reason Stop Dose Admin Acetaminophen 650 mg 07/31/24 14:19 07/31/24 14:39 Acetaminophen 325 Mg Tablet PO 650 mg Q4H PRN Administration Mild Pain (1-3) or Fever Albuterol 2 puff 07/31/24 02:08 Albuterol Sulfate (*Sp) Aerosol 1 Puff INHALATION QID PRN shortness of breath or wheezing Albuterol/Ipratropium 3 ml 07/31/24 14:00 08/02/24 08:39 Ipratropium 0.5 Mg/Albuterol Sulfate 2.5 Mg Ampul.Neb 3 Ml INHALATION 3 ml Q6HRT PJ Administration Budesonide 0.5 mg 07/31/24 20:00 08/02/24 08:39 Budesonide Respule Neb 0.5 Mg/2 Ml Amp INHALATION 0.5 mg Q12HRT PJ Administration Carvedilol 12.5 mg 07/31/24 13:10 08/02/24 09:02 Carvedilol 12.5 Mg Tablet PO 12.5 mg Q12HR PJ Administration Dextrose 12.5 gm 07/30/24 21:34 Dextrose 50% 25 Gm/50 Ml Syringe IV PUSH PRN PRN Hypoglycemia Protocol Dorzolamide/Timolol 1 drop 07/31/24 09:00 08/02/24 09:03 Dorzolamide/Timolol Ophth Sarah 10 Ml Bottle EACH EYE 1 drop Q12HR PJ Administration Enoxaparin Sodium 30 mg 08/01/24 09:00 08/02/24 09:02 Enoxaparin 30 Mg/0.3 Ml Syringe SUB-Q 30 mg DAILY PJ Administration Glucagon 1 mg 07/30/24 21:34 Glucagon For Inj 1 Mg Vial IM PRN PRN Hypoglycemia Protocol Glucose 15 gm 07/30/24 21:34 Glucose Oral Gel 15 Gm Of Glucse In 37.5 Gm Tube PO PRN PRN Hypoglycemia Protocol Dextrose 1,000 mls @ 100 mls/hr 07/30/24 21:34 Dextrose 5% 1,000 Ml IVPB PRN PRN Hypoglycemia Protocol Sodium Chloride 1,000 mls @ 75 mls/hr 07/31/24 09:45 08/02/24 01:51 Normal Saline Iv IV CONT 75 mls/hr .[id number] PJ Administration Insulin Aspart 2 - 5 units 07/31/24 08:00 08/02/24 09:04 Insulin Aspart (*Bkc) 100 Units/Ml SUB-Q 2 units TIDWM PJ Administration Protocol Insulin Aspart 1 - 2 units 07/31/24 21:00 08/01/24 20:35 Insulin Aspart (*Bkc) 100 Units/Ml SUB-Q 1 units HS PJ Administration Protocol Ondansetron HCl 4 mg 07/31/24 09:44 Ondansetron Inj 4 Mg/2 Ml Vial IV PUSH Q4H PRN Nausea And Vomiting Pantoprazole Sodium 40 mg 07/31/24 09:00 08/02/24 09:02 Pantoprazole 40 Mg Tablet PO 40 mg DAILY PJ Administration Prednisone 5 mg 07/31/24 19:00 08/02/24 06:13 Prednisone 5 Mg Tablet PO 5 mg Q12H PJ Administration Radiology Results: ITS Impressions Chest X-Ray 07/31/24 10:50 Impression: Clear lungs. Chest CT 07/31/24 15:17 IMPRESSION: 1. Mild reticular and groundglass opacities in the basilar and dependent lungs with favor atelectasis or mild pulmonary edema over pneumonia. 2. Mild emphysema. Labs Labs: Laboratory Results - last 24 hr 08/01/24 08/01/24 08/01/24 11:51 16:22 20:33 WBC RBC Hgb Hct MCV MCH MCHC RDW Plt Count MPV Sodium Potassium Chloride Carbon Dioxide Anion Gap BUN Creatinine Estim Creat Clear Calc Estimated GFR Glucose POC Capillary Glucose 263 H 318 H 256 H Calcium Total Bilirubin AST ALT Alkaline Phosphatase Total Protein Albumin 08/02/24 08/02/24 05:21 08:07 WBC 12.8 H RBC 3.22 L Hgb 8.8 L Hct 28.2 L MCV 87.6 MCH 27.3 MCHC 31.2 L RDW 13.7 Plt Count 614 H MPV 9.7 Sodium 134 L Potassium 4.7 Chloride 103 Carbon Dioxide 23 Anion Gap 8 BUN 51 H Creatinine 2.54 H Estim Creat Clear Calc 21 Estimated GFR 24 L Glucose 211 H POC Capillary Glucose 209 H Calcium 7.8 L Total Bilirubin 0.2 AST 24 ALT 19 Alkaline Phosphatase 108 Total Protein 5.0 L Albumin 2.7 L Hospitalist MIPS Advance Care Plan I have confirmed that the patient's Advanced Care Plan is present, code status is documented, or surrogate decision maker is listed in patient medical record.: Yes Medication Reconciliation I have utilized all available resources to obtain, update and review the patients current medications (includes all prescriptions, OTC, herbals, cannabis, and nutritional supplements).: Yes
[2024-08-02 11:41] LABS: Glucose Point of Care 252 mg/dl (65-105)
[2024-08-02 16:45] LABS: Glucose Point of Care 252 mg/dl (65-105)
[2024-08-02 20:39] LABS: Glucose Point of Care 220 mg/dl (65-105)
[2024-08-03] VITALS (22 sets, daily range): BP systolic 118–165; BP diastolic 63–91; PULSE 72–98; RESP 16–20; TEMP 36.3–36.8; O2SAT 94–98
[2024-08-03] MEDS: IPRATROPIUM 0.5 MG/ALBUTEROL SULFATE 2.5 MG AMPUL.NEB 3 ML INHALATION ×4 (03:37→20:34)
[2024-08-03 05:46] LABS: Hematocrit 30.6 % (42.0-52.0); Hemoglobin 9.4 g/dL (14.0-18.0); Mean Corpuscular HGB Conc 30.7 g/dl (32-36); Mean Corpuscular Hemoglobin 27.2 pg (26-34); Mean Corpuscular Volume 88.7 fl (80-100); Mean Platelet Volume 9.7 fl (7.4-10.4); Platelet Count Result 731 k/mm3 (150-375); Red Blood Count 3.45 M/mm3 (4.6-6.20); White Blood Count 12.8 K/mm3 (4.5-10.0)
[2024-08-03 06:01] LABS: Alanine Aminotransferase 21 U/L (6-50); Albumin Level 2.9 g/dL (3.5-5.1); Alkaline Phosphatase 122 U/L (38-126); Anion Gap 7 mmol/L (4-12); Aspartate Amino Transferase 24 U/L (17-59); Bilirubin,Total 0.2 mg/dL (0.2-1.3); Blood Urea Nitrogen 50 mg/dL (9-20); Calcium 8.3 mg/dL (8.4-10.2); Carbon Dioxide 24 mmol/L (22-30); Chloride 106 mmol/L (98-107); Estimated CRCL calculation 25 ml/min; Estimated Glomerular Filt Rate 26; Glucose 193 mg/dL (65-110); Potassium 5.1 mmol/L (3.4-5.0); Sodium 137 mmol/L (137-145)
[2024-08-03] MEDS: predniSONE 5 MG TABLET PO ×2 (06:03→18:08)
[2024-08-03] MEDS: BUDESONIDE RESPULE NEB 0.5 MG/2 ML AMP INHALATION ×2 (07:53→20:35)
[2024-08-03 07:56] LABS: Glucose Point of Care 200 mg/dl (65-105)
--- NOTE | 2024-08-03 07:56 | P.PNIM_ITS ---
Progress Note: A&P Assessment and Plan (1) Dehydration: Code(s): E86.0 - Dehydration Status: Acute (2) Hypovolemia: Code(s): E86.1 - Hypovolemia Status: Acute (3) GABRIELA (acute kidney injury): Code(s): N17.9 - Acute kidney failure, unspecified Status: Acute (4) Diarrhea: Code(s): R19.7 - Diarrhea, unspecified Status: Acute Plan GABRIELA on CKD from diarrhea and poor oral intake Cr downtrending, baseline 2.22 continue IVF and monitor Diarrhea Patient presented with Diarrhea but has not had any bowel movement since yes terday Continue IVF and monitor COPD continue bronchodilator and Pulmicort inhalation pAfib Continue Coreg and investigate why patient is not on anticoagulation DM2 SSi with accucheks HTN titrate home meds with clinical course DVT prophylaxis on Sq Lovenox Subjective Date/time seen: 08/03/24 07:56 Interval history: Interval history: 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 Follows with the oncologist at [facility]. He also follows up with Cardiology Nephrology at [facility].Patient was recently admitted in the hospital due to right hand and arm cellulitis and discharged with antibiotic which he was not able to tolerate. Patient was again readmitted due to diarrhea. During current hospitalization patient did not have any episodes of diarrhea. Stool studies are pending. His creatinine has been improving. Patient has mild leukocytosis possibly due to prednisone which is his home medication. 08/03: Patient has hyperkalemia. Given Lokelma and albuterol. Will repeat potassium. Review of Systems Review of Systems: All systems reviewed & are unremarkable except as noted in HPI and below (HPI) Exam Narrative: Poor skin turgor Const: General: comfortable and no acute distress Other: A&O x3. Appears profusely weak. HENMT: Mouth: Yes dry mucous membranes Eyes: Pupils: Equal, round and reactive pupils present Resp: Effort & Inspection: normal respiratory effort Auscultation: clear to auscultation bilaterally Cardio: Rate: regular rate Rhythm: regular rhythm Heart sounds: no gallops, no murmurs and no rubs Neuro: Cranial nerves: Yes Equal, round and reactive pupils present Extrem: General: no edema Objective Data Vital Signs Vital Signs: Vital Signs - 24 hr 08/02/24 08:00 08/02/24 08:00 08/02/24 08:00 Temperature 97.8 F Pulse Rate 82 103 H Respiratory Rate 18 Blood Pressure 166/74 H Pulse Oximetry 100 Oxygen Delivery Room Air Oxygen Flow Rate Fraction of Inspired Oxygen 08/02/24 08:40 08/02/24 08:40 08/02/24 08:53 Temperature Pulse Rate 103 H 96 Respiratory Rate 18 20 Blood Pressure Pulse Oximetry 94 Oxygen Delivery Room Air Oxygen Flow Rate Fraction of Inspired Oxygen 08/02/24 09:02 08/02/24 12:00 08/02/24 12:00 Temperature 97.8 F Pulse Rate 87 84 88 Respiratory Rate 18 Blood Pressure 154/75 H Pulse Oximetry 96 Oxygen Delivery Oxygen Flow Rate Fraction of Inspired Oxygen 08/02/24 14:17 08/02/24 14:26 08/02/24 16:00 Temperature Pulse Rate 53 L 83 76 Respiratory Rate 18 20 Blood Pressure Pulse Oximetry Oxygen Delivery Oxygen Flow Rate Fraction of Inspired Oxygen 08/02/24 16:00 08/02/24 20:00 08/02/24 20:00 Temperature 99.0 F Pulse Rate 88 77 Respiratory Rate 16 Blood Pressure 149/81 H Pulse Oximetry 97 Oxygen Delivery Room Air Oxygen Flow Rate Fraction of Inspired Oxygen 08/02/24 20:13 08/02/24 20:14 08/02/24 20:18 Temperature 97.8 F Pulse Rate 74 74 75 Respiratory Rate 16 20 Blood Pressure 144/53 H Pulse Oximetry 98 Oxygen Delivery Oxygen Flow Rate Fraction of Inspired Oxygen 08/02/24 20:20 08/02/24 20:34 08/03/24 00:00 Temperature Pulse Rate 100 72 Respiratory Rate 20 Blood Pressure Pulse Oximetry 95 Oxygen Delivery Room Air Oxygen Flow Rate Fraction of Inspired Oxygen 21 08/03/24 00:29 08/03/24 03:38 08/03/24 04:00 Temperature 97.8 F Pulse Rate 76 90 73 Respiratory Rate 16 20 Blood Pressure 125/64 Pulse Oximetry 95 Oxygen Delivery Oxygen Flow Rate Fraction of Inspired Oxygen 08/03/24 05:11 08/03/24 06:04 08/03/24 06:31 Temperature 97.9 F Pulse Rate 89 Respiratory Rate 16 Blood Pressure 146/82 H Pulse Oximetry 97 97 97 Oxygen Delivery Nasal Cannula Room Air Oxygen Flow Rate 2 Fraction of Inspired Oxygen 08/03/24 07:53 08/03/24 07:53 Temperature Pulse Rate 93 Respiratory Rate 16 Blood Pressure Pulse Oximetry 94 Oxygen Delivery Room Air Oxygen Flow Rate Fraction of Inspired Oxygen Intake/Output Intake/Output: Intake & Output 07/31/24 08/01/24 08/02/24 08/03/24 23:59 23:59 23:59 23:59 Intake Total 1360 1483.7 3608.7 250 Output Total 342 647 1215 600 Balance 985 633.7 1283.7 -350 Meds/Results Medications: Active Medications Generic Name Dose Route Start Last Admin Trade Name Freq PRN Reason Stop Dose Admin Acetaminophen 650 mg 07/31/24 14:19 07/31/24 14:39 Acetaminophen 325 Mg Tablet PO 650 mg Q4H PRN Administration Mild Pain (1-3) or Fever Albuterol 2 puff 07/31/24 02:08 Albuterol Sulfate (*Sp) Aerosol 1 Puff INHALATION QID PRN shortness of breath or wheezing Albuterol/Ipratropium 3 ml 07/31/24 14:00 08/03/24 07:53 Ipratropium 0.5 Mg/Albuterol Sulfate 2.5 Mg Ampul.Neb 3 Ml INHALATION 3 ml Q6HRT PJ Administration Budesonide 0.5 mg 07/31/24 20:00 08/03/24 07:53 Budesonide Respule Neb 0.5 Mg/2 Ml Amp INHALATION 0.5 mg Q12HRT PJ Administration Carvedilol 12.5 mg 07/31/24 13:10 08/02/24 20:13 Carvedilol 12.5 Mg Tablet PO 12.5 mg Q12HR PJ Administration Dextrose 12.5 gm 07/30/24 21:34 Dextrose 50% 25 Gm/50 Ml Syringe IV PUSH PRN PRN Hypoglycemia Protocol Dorzolamide/Timolol 1 drop 07/31/24 09:00 08/02/24 20:12 Dorzolamide/Timolol Ophth Sarah 10 Ml Bottle EACH EYE 1 drop Q12HR PJ Administration Enoxaparin Sodium 30 mg 08/01/24 09:00 08/02/24 09:02 Enoxaparin 30 Mg/0.3 Ml Syringe SUB-Q 30 mg DAILY PJ Administration Glucagon 1 mg 07/30/24 21:34 Glucagon For Inj 1 Mg Vial IM PRN PRN Hypoglycemia Protocol Glucose 15 gm 07/30/24 21:34 Glucose Oral Gel 15 Gm Of Glucse In 37.5 Gm Tube PO PRN PRN Hypoglycemia Protocol Dextrose 1,000 mls @ 100 mls/hr 07/30/24 21:34 Dextrose 5% 1,000 Ml IVPB PRN PRN Hypoglycemia Protocol Insulin Aspart 2 - 5 units 07/31/24 08:00 08/02/24 17:22 Insulin Aspart (*Bkc) 100 Units/Ml SUB-Q 3 units TIDWM PJ Administration Protocol Insulin Aspart 1 - 2 units 07/31/24 21:00 08/02/24 20:08 Insulin Aspart (*Bkc) 100 Units/Ml SUB-Q 1 units HS PJ Administration Protocol Ondansetron HCl 4 mg 07/31/24 09:44 Ondansetron Inj 4 Mg/2 Ml Vial IV PUSH Q4H PRN Nausea And Vomiting Pantoprazole Sodium 40 mg 07/31/24 09:00 08/02/24 09:02 Pantoprazole 40 Mg Tablet PO 40 mg DAILY PJ Administration Prednisone 5 mg 07/31/24 19:00 08/03/24 06:03 Prednisone 5 Mg Tablet PO 5 mg Q12H PJ Administration Sodium Zirconium Cyclosilicate 10 gm 08/03/24 07:55 Sodium Zirconium Cyclosilicate 10 Gm Powd.Pack PO 08/03/24 07:56 ONCE STA Radiology Results: ITS Impressions Chest X-Ray 07/31/24 10:50 Impression: Clear lungs. Chest CT 07/31/24 15:17 IMPRESSION: 1. Mild reticular and groundglass opacities in the basilar and dependent lungs w ith favor atelectasis or mild pulmonary edema over pneumonia. 2. Mild emphysema. Labs Labs: Laboratory Results - last 24 hr 08/02/24 08/02/24 08/02/24 08:07 11:35 16:42 WBC RBC Hgb Hct MCV MCH MCHC RDW Plt Count MPV Sodium Potassium Chloride Carbon Dioxide Anion Gap BUN Creatinine Estim Creat Clear Calc Estimated GFR Glucose POC Capillary Glucose 209 H 252 H 252 H Calcium Total Bilirubin AST ALT Alkaline Phosphatase Total Protein Albumin 08/02/24 08/03/24 08/03/24 20:07 04:59 07:51 WBC 12.8 H RBC 3.45 L Hgb 9.4 L Hct 30.6 L MCV 88.7 MCH 27.2 MCHC 30.7 L RDW 14.0 Plt Count 731 H MPV 9.7 Sodium 137 Potassium 5.1 H Chloride 106 Carbon Dioxide 24 Anion Gap 7 BUN 50 H Creatinine 2.38 H Estim Creat Clear Calc 25 Estimated GFR 26 L Glucose 193 H POC Capillary Glucose 220 H 200 H Calcium 8.3 L Total Bilirubin 0.2 AST 24 ALT 21 Alkaline Phosphatase 122 Total Protein 6.0 L Albumin 2.9 L Hospitalist MIPS Advance Care Plan I have confirmed that the patient's Advanced Care Plan is present, code status is documented, or surrogate decision maker is listed in patient medical record.: Yes Medication Reconciliation I have utilized all available resources to obtain, update and review the patients current medications (includes all prescriptions, OTC, herbals, cannabis, and nutritional supplements).: Yes
[2024-08-03] MEDS: carvediloL 12.5 MG TABLET PO ×2 (08:20→20:09)
[2024-08-03] MEDS: DORZOLAMIDE/TIMOLOL OPHTH SOL 10 ML BOTTLE 1 DROP EACH EYE ×2 (08:20→20:09)
[2024-08-03] MEDS: PANTOPRAZOLE 40 MG TABLET PO (08:20)
[2024-08-03] MEDS: SODIUM ZIRCONIUM CYCLOSILICATE 10 GM POWD.PACK PO (08:20)
[2024-08-03] MEDS: ENOXAPARIN 30 MG/0.3 ML SYRINGE SUB-Q (08:20)
[2024-08-03] MEDS: ALBUTEROL SULFATE NEB 2.5 MG/3 ML INH 1.25 MG INHALATION (08:45)
--- NOTE | 2024-08-03 08:56 | PCOTNOTE ---
The patient treatment was not able to be completed. Patient was eating breakfast. Will plan to continue treatment per plan of care.
[2024-08-03 08:57] LABS: Toxigenic C. Diff NEGATIVE (NEGATIVE)
[2024-08-03 09:48] LABS: Potassium 4.7 mmol/L (3.4-5.0)
[2024-08-03 11:23] LABS: Glucose Point of Care 230 mg/dl (65-105)
[2024-08-03] MEDS: INSULIN ASPART (*BKC) 100 UNITS/ML SUB-Q ×3 (12:12→22:02)
[2024-08-03 16:38] LABS: Glucose Point of Care 202 mg/dl (65-105)
[2024-08-04] VITALS (21 sets, daily range): BP systolic 147–168; BP diastolic 62–84; PULSE 69–94; RESP 16–20; TEMP 36.2–36.5; O2SAT 93–97
[2024-08-04 01:12] LABS: Glucose Point of Care 247 mg/dl (65-105)
[2024-08-04] MEDS: IPRATROPIUM 0.5 MG/ALBUTEROL SULFATE 2.5 MG AMPUL.NEB 3 ML INHALATION ×4 (02:21→20:36)
[2024-08-04] MEDS: predniSONE 5 MG TABLET PO ×2 (06:04→18:38)
[2024-08-04] MEDS: BUDESONIDE RESPULE NEB 0.5 MG/2 ML AMP INHALATION ×2 (08:01→20:37)
[2024-08-04 08:04] LABS: Glucose Point of Care 181 mg/dl (65-105)
[2024-08-04] MEDS: ENOXAPARIN 30 MG/0.3 ML SYRINGE SUB-Q (08:34)
[2024-08-04] MEDS: DORZOLAMIDE/TIMOLOL OPHTH SOL 10 ML BOTTLE 1 DROP EACH EYE ×2 (08:34→21:18)
[2024-08-04] MEDS: carvediloL 12.5 MG TABLET PO ×2 (08:34→20:01)
[2024-08-04] MEDS: PANTOPRAZOLE 40 MG TABLET PO (08:34)
--- NOTE | 2024-08-04 10:31 | PCNFU ---
Nutrition Follow-Up Complete: Inadequate oral intake related to loss of appetite, diarrhea as evidenced by report of poor appetite, weight loss Goal:PO intake >50% meals and supplements Pt current nutrition is Diabetic, Glucerna TID. Nutrition recommendation: continue with current plan of care Last recorded weight is 95.1 kg. Bowel Motility: +BM 08/03 Labs Reviewed: Hgb:9.4, HCT:30.6, alb:2.9, GFR:26, BUN:50, Cr:2.3, Glu:193 Meds Noted: novolog, protonix Skin: WNL Additional Notes: Pt continues on a diabetic diet, intake good at 75-100% of meals. Glucerna shakes TID in place. Agree with orders, Encourage po intake Monitoring intakes, weights,, labs, output, supplement tolerance, plan of care Follow up in 7 days
[2024-08-04 11:52] LABS: Glucose Point of Care 284 mg/dl (65-105)
[2024-08-04] MEDS: INSULIN ASPART (*BKC) 100 UNITS/ML SUB-Q ×3 (12:09→21:18)
[2024-08-04 14:27] LABS: Hematocrit 29.3 % (42.0-52.0); Hemoglobin 9.1 g/dL (14.0-18.0); Mean Corpuscular HGB Conc 31.1 g/dl (32-36); Mean Corpuscular Hemoglobin 26.7 pg (26-34); Mean Corpuscular Volume 85.9 fl (80-100); Mean Platelet Volume 9.3 fl (7.4-10.4); Platelet Count Result 712 k/mm3 (150-375); Red Blood Count 3.41 M/mm3 (4.6-6.20); Red Cell Distribution Width 13.9 % (11.5-14.5); White Blood Count 11.6 K/mm3 (4.5-10.0)
[2024-08-04 14:35] LABS: Anion Gap 7 mmol/L (4-12); Blood Urea Nitrogen 48 mg/dL (9-20); Calcium 8.1 mg/dL (8.4-10.2); Carbon Dioxide 23 mmol/L (22-30); Chloride 104 mmol/L (98-107); Estimated CRCL calculation 29 ml/min; Estimated Glomerular Filt Rate 31; Glucose 257 mg/dL (65-110); Potassium 4.5 mmol/L (3.4-5.0); Sodium 134 mmol/L (137-145)
--- NOTE | 2024-08-04 15:39 | PM.IMPN ---
Progress Note: A&P Assessment and Plan (1) Dehydration: Code(s): E86.0 - Dehydration Status: Acute (2) Hypovolemia: Code(s): E86.1 - Hypovolemia Status: Acute (3) GABRIELA (acute kidney injury): Code(s): N17.9 - Acute kidney failure, unspecified Status: Acute (4) Diarrhea: Code(s): R19.7 - Diarrhea, unspecified Status: Acute Plan GABRIELA on CKD from diarrhea and poor oral intake Cr downtrending, baseline 2.22 continue IVF and monitor Diarrhea Patient presented with Diarrhea but has not had any bowel movement since yesterday Encourage oral fluid COPD continue bronchodilator and Pulmicort inhalation pAfib Continue Coreg and s not on anticoagulation DM2 SSi with accucheks HTN titrate home meds with clinical course DVT prophylaxis on Sq Lovenox Subjective Date/time seen: 08/04/24 15:39 Interval history: Interval history: 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 Follows with the oncologist at [facility]. He also follows up with Cardiology Nephrology at [facility].Patient was recently admitted in the hospital due to right hand and arm cellulitis and discharged with antibiotic which he was not able to tolerate. Patient was again readmitted due to diarrhea. During current hospitalization patient did not have any episodes of diarrhea. Stool studies are pending. His creatinine has been improving. Patient has mild leukocytosis possibly due to prednisone which is his home medication. 0 08/04: Patient continues to improve. Review of Systems Review of Systems: All systems reviewed & are unremarkable except as noted in HPI and below (HPI) Exam Narrative: Poor skin turgor Const: General: comfortable and no acute distress Other: A&O x3. Appears profusely weak. HENMT: Mouth: Yes dry mucous membranes Eyes: Pupils: Equal, round and reactive pupils present Resp: Effort & Inspection: normal respiratory effort Auscultation: clear to auscultation bilaterally Cardio: Rate: regular rate Rhythm: regular rhythm Heart sounds: no gallops, no murmurs and no rubs Neuro: Cranial nerves: Yes Equal, round and reactive pupils present Extrem: General: no edema Objective Data Vital Signs Vital Signs: Vital Signs - 24 hr 08/03/24 16:00 08/03/24 16:00 08/03/24 20:00 Temperature 97.6 F Pulse Rate 78 79 Respiratory Rate 16 Blood Pressure 118/63 Pulse Oximetry 95 Oxygen Delivery Room Air 08/03/24 20:00 08/03/24 20:09 08/03/24 20:39 Temperature Pulse Rate 87 88 90 Respiratory Rate 20 Blood Pressure Pulse Oximetry Oxygen Delivery 08/03/24 20:47 08/03/24 20:51 08/03/24 21:04 Temperature 98.2 F Pulse Rate 90 84 84 Respiratory Rate 20 18 Blood Pressure 154/77 H Pulse Oximetry 94 95 Oxygen Delivery Room Air 08/04/24 00:00 08/04/24 00:56 08/04/24 02:21 Temperature 97.7 F Pulse Rate 75 80 89 Respiratory Rate 16 18 Blood Pressure 155/81 H Pulse Oximetry 93 Oxygen Delivery 08/04/24 02:29 08/04/24 04:00 08/04/24 06:05 Temperature 97.6 F Pulse Rate 84 76 70 Respiratory Rate 16 18 Blood Pressure 147/62 H Pulse Oximetry 94 Oxygen Delivery 08/04/24 08:00 08/04/24 08:02 08/04/24 08:02 Temperature 97.1 F L Pulse Rate 85 90 Respiratory Rate 16 16 Blood Pressure 152/81 H Pulse Oximetry 96 96 Oxygen Delivery Room Air 08/04/24 08:14 08/04/24 08:34 08/04/24 08:50 Temperature Pulse Rate 88 85 Respiratory Rate 16 Blood Pressure Pulse Oximetry Oxygen Delivery Room Air 08/04/24 08:50 08/04/24 12:00 08/04/24 12:00 Temperature Pulse Rate 83 80 80 Respiratory Rate 16 Blood Pressure 148/80 H Pulse Oximetry 97 Oxygen Delivery 08/04/24 13:40 08/04/24 13:50 Temperature Pulse Rate 74 81 Respiratory Rate 20 20 Blood Pressure Pulse Oximetry Oxygen Delivery Intake/Output Intake/Output: Intake & Output 08/01/24 08/02/24 08/03/24 08/04/24 23:59 23:59 23:59 23:59 Intake Total 1483.7 3608.7 1830 1030 Output Total 850 2325 1750 900 Balance 633.7 1283.7 80 130 Meds/Results Medications: Active Medications Generic Name Dose Route Start Last Admin Trade Name Freq PRN Reason Stop Dose Admin Acetaminophen 650 mg 07/31/24 14:19 07/31/24 14:39 Acetaminophen 325 Mg Tablet PO 650 mg Q4H PRN Administration Mild Pain (1-3) or Fever Albuterol 2 puff 07/31/24 02:08 Albuterol Sulfate (*Sp) Aerosol 1 Puff INHALATION QID PRN shortness of breath or wheezing Albuterol/Ipratropium 3 ml 07/31/24 14:00 08/04/24 13:39 Ipratropium 0.5 Mg/Albuterol Sulfate 2.5 Mg Ampul.Neb 3 Ml INHALATION 3 ml Q6HRT PJ Administration Budesonide 0.5 mg 07/31/24 20:00 08/04/24 08:01 Budesonide Respule Neb 0.5 Mg/2 Ml Amp INHALATION 0.5 mg Q12HRT PJ Administration Carvedilol 12.5 mg 07/31/24 13:10 08/04/24 08:34 Carvedilol 12.5 Mg Tablet PO 12.5 mg Q12HR PJ Administration Dextrose 12.5 gm 07/30/24 21:34 Dextrose 50% 25 Gm/50 Ml Syringe IV PUSH PRN PRN Hypoglycemia Protocol Dorzolamide/Timolol 1 drop 07/31/24 09:00 08/04/24 08:34 Dorzolamide/Timolol Ophth Sarah 10 Ml Bottle EACH EYE 1 drop Q12HR PJ Administration Enoxaparin Sodium 30 mg 08/01/24 09:00 08/04/24 08:34 Enoxaparin 30 Mg/0.3 Ml Syringe SUB-Q 30 mg DAILY PJ Administration Glucagon 1 mg 07/30/24 21:34 Glucagon For Inj 1 Mg Vial IM PRN PRN Hypoglycemia Protocol Glucose 15 gm 07/30/24 21:34 Glucose Oral Gel 15 Gm Of Glucse In 37.5 Gm Tube PO PRN PRN Hypoglycemia Protocol Dextrose 1,000 mls @ 100 mls/hr 07/30/24 21:34 Dextrose 5% 1,000 Ml IVPB PRN PRN Hypoglycemia Protocol Insulin Aspart 2 - 5 units 07/31/24 08:00 08/04/24 12:09 Insulin Aspart (*Bkc) 100 Units/Ml SUB-Q 3 units TIDWM PJ Administration Protocol Insulin Aspart 1 - 2 units 07/31/24 21:00 08/03/24 22:02 Insulin Aspart (*Bkc) 100 Units/Ml SUB-Q 1 units HS PJ Administration Protocol Ondansetron HCl 4 mg 07/31/24 09:44 Ondansetron Inj 4 Mg/2 Ml Vial IV PUSH Q4H PRN Nausea And Vomiting Pantoprazole Sodium 40 mg 07/31/24 09:00 08/04/24 08:34 Pantoprazole 40 Mg Tablet PO 40 mg DAILY PJ Administration Prednisone 5 mg 07/31/24 19:00 08/04/24 06:04 Prednisone 5 Mg Tablet PO 5 mg Q12H PJ Administration Radiology Results: ITS Impressions Chest X-Ray 07/31/24 10:50 Impression: Clear lungs. Chest CT 07/31/24 15:17 IMPRESSION: 1. Mild reticular and groundglass opacities in the basilar and dependent lungs with favor atelectasis or mild pulmonary edema over pneumonia. 2. Mild emphysema. Labs Labs: Laboratory Results - last 24 hr 08/03/24 08/03/24 08/04/24 16:34 21:52 07:56 WBC RBC Hgb Hct MCV MCH MCHC RDW Plt Count MPV Sodium Potassium Chloride Carbon Dioxide Anion Gap BUN Creatinine Estim Creat Clear Calc Estimated GFR Glucose POC Capillary Glucose 202 H 247 H 181 H Calcium 08/04/24 08/04/24 11:42 14:11 WBC 11.6 H RBC 3.41 L Hgb 9.1 L Hct 29.3 L MCV 85.9 MCH 26.7 MCHC 31.1 L RDW 13.9 Plt Count 712 H MPV 9.3 Sodium 134 L Potassium 4.5 Chloride 104 Carbon Dioxide 23 Anion Gap 7 BUN 48 H Creatinine 2.06 H Estim Creat Clear Calc 29 Estimated GFR 31 L Glucose 257 H POC Capillary Glucose 284 H Calcium 8.1 L Hospitalist MIPS Advance Care Plan I have confirmed that the patient's Advanced Care Plan is present, code status is documented, or surrogate decision maker is listed in patient medical record.: Yes Medication Reconciliation I have utilized all available resources to obtain, update and review the patients current medications (includes all prescriptions, OTC, herbals, cannabis, and nutritional supplements).: Yes
[2024-08-04 17:24] LABS: Glucose Point of Care 225 mg/dl (65-105)
[2024-08-04 21:12] LABS: Glucose Point of Care 249 mg/dl (65-105)
[2024-08-05] VITALS (17 sets, daily range): BP systolic 129–171; BP diastolic 65–84; PULSE 66–91; RESP 16–20; TEMP 36.2–36.5; O2SAT 94–98
[2024-08-05] MEDS: IPRATROPIUM 0.5 MG/ALBUTEROL SULFATE 2.5 MG AMPUL.NEB 3 ML INHALATION ×4 (03:15→20:13)
[2024-08-05] MEDS: predniSONE 5 MG TABLET PO ×2 (06:22→18:10)
[2024-08-05] MEDS: BUDESONIDE RESPULE NEB 0.5 MG/2 ML AMP INHALATION ×2 (07:51→20:13)
[2024-08-05 08:11] LABS: Glucose Point of Care 172 mg/dl (65-105)
--- NOTE | 2024-08-05 09:18 | P.PNIM_ITS ---
Progress Note: A&P Assessment and Plan (1) Dehydration: Code(s): E86.0 - Dehydration Status: Acute (2) Hypovolemia: Code(s): E86.1 - Hypovolemia Status: Acute (3) GABRIELA (acute kidney injury): Code(s): N17.9 - Acute kidney failure, unspecified Status: Acute (4) Diarrhea: Code(s): R19.7 - Diarrhea, unspecified Status: Acute Plan GABRIELA on CKD from diarrhea and poor oral intake Cr downtrending, baseline 2.22 continue IVF and monitor Diarrhea Patient presented with Diarrhea but has not had any bowel movement since yes terday Encourage oral fluid COPD continue bronchodilator and Pulmicort inhalation pAfib Continue Coreg and s not on anticoagulation DM2 SSi with accucheks HTN titrate home meds with clinical course DVT prophylaxis on Sq Lovenox Subjective Date/time seen: 08/05/24 09:18 Interval history: Pending placement Review of Systems Review of Systems: All systems reviewed & are unremarkable except as noted in HPI and below (HPI) Exam Narrative: Poor skin turgor Const: General: comfortable and no acute distress Other: A&O x3. Appears profusely weak. HENMT: Mouth: Yes dry mucous membranes Eyes: Pupils: Equal, round and reactive pupils present Resp: Effort & Inspection: normal respiratory effort Auscultation: clear to auscultation bilaterally Cardio: Rate: regular rate Rhythm: regular rhythm Heart sounds: no gallops, no murmurs and no rubs Neuro: Cranial nerves: Yes Equal, round and reactive pupils present Extrem: General: no edema Objective Data Vital Signs Vital Signs: Vital Signs - 24 hr 08/04/24 12:00 08/04/24 12:00 08/04/24 13:40 Temperature Pulse Rate 80 80 74 Respiratory Rate 16 20 Blood Pressure 148/80 H Pulse Oximetry 97 Oxygen Delivery 08/04/24 13:50 08/04/24 16:00 08/04/24 16:00 Temperature Pulse Rate 81 69 72 Respiratory Rate 20 16 Blood Pressure 148/71 H Pulse Oximetry 96 Oxygen Delivery 08/04/24 19:22 08/04/24 20:00 08/04/24 20:00 Temperature 97.7 F Pulse Rate 94 74 Respiratory Rate 20 Blood Pressure 168/84 H Pulse Oximetry 94 Oxygen Delivery Room Air 08/04/24 20:01 08/04/24 20:37 08/04/24 20:40 Temperature Pulse Rate 78 79 79 Respiratory Rate 18 Blood Pressure Pulse Oximetry 96 Oxygen Delivery Room Air 08/04/24 20:48 08/05/24 00:00 08/05/24 00:00 Temperature 97.7 F Pulse Rate 77 67 71 Respiratory Rate 18 20 Blood Pressure 142/65 H Pulse Oximetry 94 Oxygen Delivery 08/05/24 03:15 08/05/24 03:25 08/05/24 04:00 Temperature 97.7 F Pulse Rate 91 84 71 Respiratory Rate 20 19 20 Blood Pressure 129/84 Pulse Oximetry 97 Oxygen Delivery 08/05/24 04:00 08/05/24 07:51 08/05/24 07:51 Temperature Pulse Rate 86 77 Respiratory Rate 20 Blood Pressure Pulse Oximetry 96 Oxygen Delivery Room Air 08/05/24 08:14 Temperature Pulse Rate 77 Respiratory Rate 20 Blood Pressure Pulse Oximetry Oxygen Delivery Intake/Output Intake/Output: Intake & Output 08/02/24 08/03/24 08/04/24 08/05/24 23:59 23:59 23:59 23:59 Intake Total 3608.7 1830 2120 510 Output Total 2325 1750 1350 175 Balance 1283.7 80 770 335 Meds/Results Medications: Active Medications Generic Name Dose Route Start Last Admin Trade Name Freq PRN Reason Stop Dose Admin Acetaminophen 650 mg 07/31/24 14:19 07/31/24 14:39 Acetaminophen 325 Mg Tablet PO 650 mg Q4H PRN Administration Mild Pain (1-3) or Fever Albuterol 2 puff 07/31/24 02:08 Albuterol Sulfate (*Sp) Aerosol 1 Puff INHALATION QID PRN shortness of breath or wheezing Albuterol/Ipratropium 3 ml 07/31/24 14:00 08/05/24 07:51 Ipratropium 0.5 Mg/Albuterol Sulfate 2.5 Mg Ampul.Neb 3 Ml INHALATION 3 ml Q6HRT PJ Administration Budesonide 0.5 mg 07/31/24 20:00 08/05/24 07:51 Budesonide Respule Neb 0.5 Mg/2 Ml Amp INHALATION 0.5 mg Q12HRT PJ Administration Carvedilol 12.5 mg 07/31/24 13:10 08/04/24 20:01 Carvedilol 12.5 Mg Tablet PO 12.5 mg Q12HR PJ Administration Dextrose 12.5 gm 07/30/24 21:34 Dextrose 50% 25 Gm/50 Ml Syringe IV PUSH PRN PRN Hypoglycemia Protocol Dorzolamide/Timolol 1 drop 07/31/24 09:00 08/04/24 21:18 Dorzolamide/Timolol Ophth Sarah 10 Ml Bottle EACH EYE 1 drop Q12HR PJ Administration Enoxaparin Sodium 30 mg 08/01/24 09:00 08/04/24 08:34 Enoxaparin 30 Mg/0.3 Ml Syringe SUB-Q 30 mg DAILY PJ Administration Glucagon 1 mg 07/30/24 21:34 Glucagon For Inj 1 Mg Vial IM PRN PRN Hypoglycemia Protocol Glucose 15 gm 07/30/24 21:34 Glucose Oral Gel 15 Gm Of Glucse In 37.5 Gm Tube PO PRN PRN Hypoglycemia Protocol Dextrose 1,000 mls @ 100 mls/hr 07/30/24 21:34 Dextrose 5% 1,000 Ml IVPB PRN PRN Hypoglycemia Protocol Insulin Aspart 2 - 5 units 07/31/24 08:00 08/04/24 17:35 Insulin Aspart (*Bkc) 100 Units/Ml SUB-Q 2 units TIDWM PJ Administration Protocol Insulin Aspart 1 - 2 units 07/31/24 21:00 08/04/24 21:18 Insulin Aspart (*Bkc) 100 Units/Ml SUB-Q 1 units HS PJ Administration Protocol Ondansetron HCl 4 mg 07/31/24 09:44 Ondansetron Inj 4 Mg/2 Ml Vial IV PUSH Q4H PRN Nausea And Vomiting Pantoprazole Sodium 40 mg 07/31/24 09:00 08/04/24 08:34 Pantoprazole 40 Mg Tablet PO 40 mg DAILY PJ Administration Prednisone 5 mg 07/31/24 19:00 08/05/24 06:22 Prednisone 5 Mg Tablet PO 5 mg Q12H PJ Administration Radiology Results: ITS Impressions Chest X-Ray 07/31/24 10:50 Impression: Clear lungs. Chest CT 07/31/24 15:17 IMPRESSION: 1. Mild reticular and groundglass opacities in the basilar and dependent lungs with favor atelectasis or mild pulmonary edema over pneumonia. 2. Mild emphysema. Labs Labs: Laboratory Results - last 24 hr 08/04/24 08/04/24 08/04/24 11:42 14:11 17:06 WBC 11.6 H RBC 3.41 L Hgb 9.1 L Hct 29.3 L MCV 85.9 MCH 26.7 MCHC 31.1 L RDW 13.9 Plt Count 712 H MPV 9.3 Sodium 134 L Potassium 4.5 Chloride 104 Carbon Dioxide 23 Anion Gap 7 BUN 48 H Creatinine 2.06 H Estim Creat Clear Calc 29 Estimated GFR 31 L Glucose 257 H POC Capillary Glucose 284 H 225 H Calcium 8.1 L 08/04/24 08/05/24 19:26 08:01 WBC RBC Hgb Hct MCV MCH MCHC RDW Plt Count MPV Sodium Potassium Chloride Carbon Dioxide Anion Gap BUN Creatinine Estim Creat Clear Calc Estimated GFR Glucose POC Capillary Glucose 249 H 172 H Calcium Hospitalist MIPS Advance Care Plan I have confirmed that the patient's Advanced Care Plan is present, code status is documented, or surrogate decision maker is listed in patient medical record.: Yes Medication Reconciliation I have utilized all available resources to obtain, update and review the p atients current medications (includes all prescriptions, OTC, herbals, cannabis, and nutritional supplements).: Yes
[2024-08-05] MEDS: PANTOPRAZOLE 40 MG TABLET PO (09:39)
[2024-08-05] MEDS: carvediloL 12.5 MG TABLET PO ×2 (09:39→20:44)
[2024-08-05] MEDS: ENOXAPARIN 30 MG/0.3 ML SYRINGE SUB-Q (09:40)
[2024-08-05] MEDS: DORZOLAMIDE/TIMOLOL OPHTH SOL 10 ML BOTTLE 1 DROP EACH EYE ×2 (09:41→20:44)
[2024-08-05 09:54] LABS: Hematocrit 29.8 % (42.0-52.0); Hemoglobin 9.2 g/dL (14.0-18.0); Mean Corpuscular HGB Conc 30.9 g/dl (32-36); Mean Corpuscular Hemoglobin 27.1 pg (26-34); Mean Corpuscular Volume 87.6 fl (80-100); Mean Platelet Volume 9.3 fl (7.4-10.4); Platelet Count Result 714 k/mm3 (150-375); Red Cell Distribution Width 14.2 % (11.5-14.5); White Blood Count 10.8 K/mm3 (4.5-10.0)
[2024-08-05 10:26] LABS: Alanine Aminotransferase 22 U/L (6-50); Albumin Level 2.8 g/dL (3.5-5.1); Alkaline Phosphatase 125 U/L (38-126); Anion Gap 7 mmol/L (4-12); Aspartate Amino Transferase 27 U/L (17-59); Bilirubin,Total 0.3 mg/dL (0.2-1.3); Blood Urea Nitrogen 44 mg/dL (9-20); Calcium 8.3 mg/dL (8.4-10.2); Carbon Dioxide 25 mmol/L (22-30); Chloride 105 mmol/L (98-107); Estimated CRCL calculation 30 ml/min; Estimated Glomerular Filt Rate 33; Glucose 222 mg/dL (65-110); Potassium 4.2 mmol/L (3.4-5.0); Sodium 137 mmol/L (137-145)
[2024-08-05 11:52] LABS: Glucose Point of Care 213 mg/dl (65-105)
[2024-08-05] MEDS: INSULIN ASPART (*BKC) 100 UNITS/ML SUB-Q ×3 (12:19→20:46)
[2024-08-05 17:13] LABS: Glucose Point of Care 249 mg/dl (65-105)
[2024-08-05 21:45] LABS: Glucose Point of Care 292 mg/dl (65-105)
[2024-08-06] VITALS (16 sets, daily range): BP systolic 151–179; BP diastolic 57–76; PULSE 63–89; RESP 14–20; TEMP 36.2–36.7; O2SAT 93–98
[2024-08-06] MEDS: IPRATROPIUM 0.5 MG/ALBUTEROL SULFATE 2.5 MG AMPUL.NEB 3 ML INHALATION ×3 (02:22→14:41)
[2024-08-06 05:01] LABS: Hematocrit 31.1 % (42.0-52.0); Hemoglobin 9.6 g/dL (14.0-18.0); Mean Corpuscular HGB Conc 30.9 g/dl (32-36); Mean Corpuscular Hemoglobin 26.8 pg (26-34); Mean Corpuscular Volume 86.9 fl (80-100); Mean Platelet Volume 9.2 fl (7.4-10.4); Platelet Count Result 766 k/mm3 (150-375); Red Blood Count 3.58 M/mm3 (4.6-6.20); Red Cell Distribution Width 14.1 % (11.5-14.5); White Blood Count 11.9 K/mm3 (4.5-10.0)
[2024-08-06 05:19] LABS: Alanine Aminotransferase 24 U/L (6-50); Alkaline Phosphatase 134 U/L (38-126); Anion Gap 6 mmol/L (4-12); Aspartate Amino Transferase 28 U/L (17-59); Bilirubin,Total 0.2 mg/dL (0.2-1.3); Blood Urea Nitrogen 42 mg/dL (9-20); Calcium 8.5 mg/dL (8.4-10.2); Carbon Dioxide 27 mmol/L (22-30); Chloride 104 mmol/L (98-107); Estimated CRCL calculation 33 ml/min; Estimated Glomerular Filt Rate 36; Glucose 223 mg/dL (65-110); Potassium 4.4 mmol/L (3.4-5.0); Sodium 137 mmol/L (137-145)
[2024-08-06] MEDS: predniSONE 5 MG TABLET PO ×2 (06:01→17:26)
[2024-08-06 08:06] LABS: Glucose Point of Care 193 mg/dl (65-105)
[2024-08-06] MEDS: BUDESONIDE RESPULE NEB 0.5 MG/2 ML AMP INHALATION (08:42)
[2024-08-06] MEDS: PANTOPRAZOLE 40 MG TABLET PO (09:06)
[2024-08-06] MEDS: carvediloL 12.5 MG TABLET PO ×2 (09:06→20:44)
[2024-08-06] MEDS: ENOXAPARIN 40 MG/0.4 ML SYRINGE SUB-Q (09:06)
[2024-08-06] MEDS: DORZOLAMIDE/TIMOLOL OPHTH SOL 10 ML BOTTLE 1 DROP EACH EYE ×2 (09:07→20:46)
--- NOTE | 2024-08-06 09:08 | P.PNIM_ITS ---
Progress Note: A&P Assessment and Plan (1) Dehydration: Code(s): E86.0 - Dehydration Status: Acute (2) Hypovolemia: Code(s): E86.1 - Hypovolemia Status: Acute (3) GABRIELA (acute kidney injury): Code(s): N17.9 - Acute kidney failure, unspecified Status: Acute (4) Diarrhea: Code(s): R19.7 - Diarrhea, unspecified Status: Acute Plan GABRIELA on CKD from diarrhea and poor oral intake Cr downtrending, baseline 2.22 continue IVF and monitor Diarrhea Patient presented with Diarrhea but has not had any bowel movement since yes terday Encourage oral fluid COPD continue bronchodilator and Pulmicort inhalation pAfib Continue Coreg and s not on anticoagulation DM2 SSi with accucheks HTN titrate home meds with clinical course DVT prophylaxis on Sq Lovenox Subjective Date/time seen: 08/06/24 09:08 Interval history: Pending placement. Creatinine continues to improve. Review of Systems Review of Systems: All systems reviewed & are unremarkable except as noted in HPI and below (HPI) Exam Narrative: Poor skin turgor Const: General: comfortable and no acute distress Other: A&O x3. Appears profusely weak. HENMT: Mouth: Yes dry mucous membranes Eyes: Pupils: Equal, round and reactive pupils present Resp: Effort & Inspection: normal respiratory effort Auscultation: clear to auscultation bilaterally Cardio: Rate: regular rate Rhythm: regular rhythm Heart sounds: no gallops, no murmurs and no rubs Neuro: Cranial nerves: Yes Equal, round and reactive pupils present Extrem: General: no edema Objective Data Vital Signs Vital Signs: Vital Signs - 24 hr 08/05/24 09:39 08/05/24 12:00 08/05/24 12:00 Temperature 97.4 F L Pulse Rate 72 77 78 Respiratory Rate 16 Blood Pressure 171/73 H Pulse Oximetry 98 Oxygen Delivery 08/05/24 13:41 08/05/24 13:41 08/05/24 13:53 Temperature Pulse Rate 84 80 Respiratory Rate 20 20 Blood Pressure Pulse Oximetry 97 Oxygen Delivery Room Air 08/05/24 16:00 08/05/24 16:00 08/05/24 20:00 Temperature 97.2 F L Pulse Rate 70 75 66 Respiratory Rate 16 20 Blood Pressure 168/72 H 152/76 H Pulse Oximetry 96 98 Oxygen Delivery 08/05/24 20:00 08/05/24 20:00 08/05/24 20:13 Temperature Pulse Rate 81 78 Respiratory Rate 20 Blood Pressure Pulse Oximetry Oxygen Delivery Room Air 08/05/24 20:16 08/05/24 20:24 08/05/24 20:44 Temperature Pulse Rate 78 74 80 Respiratory Rate 20 18 Blood Pressure Pulse Oximetry 95 Oxygen Delivery Room Air 08/06/24 00:00 08/06/24 00:00 08/06/24 02:24 Temperature 97.2 F L Pulse Rate 79 77 68 Respiratory Rate 16 16 Blood Pressure 179/75 H Pulse Oximetry 97 Oxygen Delivery 08/06/24 02:30 08/06/24 04:00 08/06/24 04:00 Temperature 97.8 F Pulse Rate 68 75 75 Respiratory Rate 18 20 Blood Pressure 163/76 H Pulse Oximetry 95 Oxygen Delivery 08/06/24 07:32 08/06/24 08:44 08/06/24 08:44 Temperature Pulse Rate 84 84 Respiratory Rate 20 20 Blood Pressure Pulse Oximetry 93 Oxygen Delivery Room Air Room Air 08/06/24 09:06 Temperature Pulse Rate 89 Respiratory Rate Blood Pressure Pulse Oximetry Oxygen Delivery Intake/Output Intake/Output: Intake & Output 08/03/24 08/04/24 08/05/24 08/06/24 23:59 23:59 23:59 23:59 Intake Total 1830 2120 1670 200 Output Total 1750 1350 650 575 Balance 80 770 1020 -375 Meds/Results Medications: Active Medications Generic Name Dose Route Start Last Admin Trade Name Freq PRN Reason Stop Dose Admin Acetaminophen 650 mg 07/31/24 14:19 07/31/24 14:39 Acetaminophen 325 Mg Tablet PO 650 mg Q4H PRN Administration Mild Pain (1-3) or Fever Albuterol 2 puff 07/31/24 02:08 Albuterol Sulfate (*Sp) Aerosol 1 Puff INHALATION QID PRN shortness of breath or wheezing Albuterol/Ipratropium 3 ml 07/31/24 14:00 08/06/24 08:42 Ipratropium 0.5 Mg/Albuterol Sulfate 2.5 Mg Ampul.Neb 3 Ml INHALATION 3 ml Q6HRT PJ Administration Budesonide 0.5 mg 07/31/24 20:00 08/06/24 08:42 Budesonide Respule Neb 0.5 Mg/2 Ml Amp INHALATION 0.5 mg Q12HRT PJ Administration Carvedilol 12.5 mg 07/31/24 13:10 08/06/24 09:06 Carvedilol 12.5 Mg Tablet PO 12.5 mg Q12HR PJ Administration Dextrose 12.5 gm 07/30/24 21:34 Dextrose 50% 25 Gm/50 Ml Syringe IV PUSH PRN PRN Hypoglycemia Protocol Dorzolamide/Timolol 1 drop 07/31/24 09:00 08/06/24 09:07 Dorzolamide/Timolol Ophth Sarah 10 Ml Bottle EACH EYE 1 drop Q12HR PJ Administration Enoxaparin Sodium 40 mg 08/06/24 09:00 08/06/24 09:06 Enoxaparin 40 Mg/0.4 Ml Syringe SUB-Q 40 mg DAILY PJ Administration Glucagon 1 mg 07/30/24 21:34 Glucagon For Inj 1 Mg Vial IM PRN PRN Hypoglycemia Protocol Glucose 15 gm 07/30/24 21:34 Glucose Oral Gel 15 Gm Of Glucse In 37.5 Gm Tube PO PRN PRN Hypoglycemia Protocol Dextrose 1,000 mls @ 100 mls/hr 07/30/24 21:34 Dextrose 5% 1,000 Ml IVPB PRN PRN Hypoglycemia Protocol Insulin Aspart 2 - 5 units 07/31/24 08:00 08/06/24 09:06 Insulin Aspart (*Bkc) 100 Units/Ml SUB-Q Not Given TIDWM PJ Protocol Insulin Aspart 1 - 2 units 07/31/24 21:00 08/05/24 20:46 Insulin Aspart (*Bkc) 100 Units/Ml SUB-Q 1 units HS PJ Administration Protocol Ondansetron HCl 4 mg 07/31/24 09:44 Ondansetron Inj 4 Mg/2 Ml Vial IV PUSH Q4H PRN Nausea And Vomiting Pantoprazole Sodium 40 mg 07/31/24 09:00 08/06/24 09:06 Pantoprazole 40 Mg Tablet PO 40 mg DAILY PJ Administration Prednisone 5 mg 07/31/24 19:00 08/06/24 06:01 Prednisone 5 Mg Tablet PO 5 mg Q12H PJ Administration Radiology Results: ITS Impressions Chest X-Ray 07/31/24 10:50 Impression: Clear lungs. Chest CT 07/31/24 15:17 IMPRESSION: 1. Mild reticular and groundglass opacities in the basilar and dependent lungs with favor atelectasis or mild pulmonary edema over pneumonia. 2. Mild emphysema. Labs Labs: Laboratory Results - last 24 hr 08/05/24 08/05/24 08/05/24 09:34 11:45 17:06 WBC 10.8 H RBC 3.40 L Hgb 9.2 L Hct 29.8 L MCV 87.6 MCH 27.1 MCHC 30.9 L RDW 14.2 Plt Count 714 H MPV 9.3 Sodium 137 Potassium 4.2 Chloride 105 Carbon Dioxide 25 Anion Gap 7 BUN 44 H Creatinine 1.95 H Estim Creat Clear Calc 30 Estimated GFR 33 L Glucose 222 H POC Capillary Glucose 213 H 249 H Calcium 8.3 L Total Bilirubin 0.3 AST 27 ALT 22 Alkaline Phosphatase 125 Total Protein 5.0 L Albumin 2.8 L 08/05/24 08/06/24 08/06/24 20:36 04:31 07:59 WBC 11.9 H RBC 3.58 L Hgb 9.6 L Hct 31.1 L MCV 86.9 MCH 26.8 MCHC 30.9 L RDW 14.1 Plt Count 766 H MPV 9.2 Sodium 137 Potassium 4.4 Chloride 104 Carbon Dioxide 27 Anion Gap 6 BUN 42 H Creatinine 1.82 H Estim Creat Clear Calc 33 Estimated GFR 36 L Glucose 223 H POC Capillary Glucose 292 H 193 H Calcium 8.5 Total Bilirubin 0.2 AST 28 ALT 24 Alkaline Phosphatase 134 H Total Protein 6.0 L Albumin 3.0 L Hospitalist MIPS Advance Care Plan I have confirmed that the patient's Advanced Care Plan is present, code status is documented, or surrogate decision maker is listed in patient medical record.: Yes Medication Reconciliation I have utilized all available resources to obtain, update and review the patients current medications (includes all prescriptions, OTC, herbals, cannabis, and nutritional supplements).: Yes
[2024-08-06 11:50] LABS: Glucose Point of Care 258 mg/dl (65-105)
[2024-08-06] MEDS: INSULIN ASPART (*BKC) 100 UNITS/ML SUB-Q ×3 (12:13→20:48)
--- NOTE | 2024-08-06 12:42 | PC.NURSE ---
pt walked in plasencia with [employer] on 08/05/24 around entire unit with wheeled walker, he did well, this morning pt stated to me that he would prefer to go home rather than to inpatient rehab, he states she will agree to have outpt therapy but his choice would be home, has arrived for visit and is very upset about this and she states that she is very mad and that she wants him to go to inpt because he has been non-compliant with that in the past, the conversation did become heated between and patient
[2024-08-06 17:00] LABS: Glucose Point of Care 215 mg/dl (65-105)
[2024-08-06 21:18] LABS: Glucose Point of Care 228 mg/dl (65-105)
[2024-08-07] VITALS (14 sets, daily range): BP systolic 139–170; BP diastolic 70–78; PULSE 65–97; RESP 14–20; TEMP 36.2–36.6; O2SAT 95–98
[2024-08-07] MEDS: IPRATROPIUM 0.5 MG/ALBUTEROL SULFATE 2.5 MG AMPUL.NEB 3 ML INHALATION ×3 (03:50→14:16)
[2024-08-07] MEDS: predniSONE 5 MG TABLET PO (06:59)
[2024-08-07] MEDS: BUDESONIDE RESPULE NEB 0.5 MG/2 ML AMP INHALATION (07:27)
[2024-08-07 07:41] LABS: Glucose Point of Care 171 mg/dl (65-105)
[2024-08-07] MEDS: carvediloL 12.5 MG TABLET PO (08:41)
[2024-08-07] MEDS: ENOXAPARIN 40 MG/0.4 ML SYRINGE SUB-Q (08:41)
[2024-08-07] MEDS: PANTOPRAZOLE 40 MG TABLET PO (08:41)
[2024-08-07] MEDS: DORZOLAMIDE/TIMOLOL OPHTH SOL 10 ML BOTTLE 1 DROP EACH EYE (08:42)
[2024-08-07 11:25] LABS: Glucose Point of Care 252 mg/dl (65-105)
[2024-08-07] MEDS: INSULIN ASPART (*BKC) 100 UNITS/ML SUB-Q (12:42)
--- NOTE | 2024-08-07 14:28 | P.PNIM_ITS ---
Progress Note: A&P Assessment and Plan (1) Dehydration: Code(s): E86.0 - Dehydration Status: Acute (2) Hypovolemia: Code(s): E86.1 - Hypovolemia Status: Acute (3) GABRIELA (acute kidney injury): Code(s): N17.9 - Acute kidney failure, unspecified Status: Acute (4) Diarrhea: Code(s): R19.7 - Diarrhea, unspecified Status: Acute Plan GABRIELA on CKD from diarrhea and poor oral intake Cr downtrending, baseline 2.22 continue IVF and monitor Diarrhea Patient presented with Diarrhea but has not had any bowel movement since yes terday Encourage oral fluid COPD continue bronchodilator and Pulmicort inhalation pAfib Continue Coreg and s not on anticoagulation DM2 SSi with accucheks HTN titrate home meds with clinical course DVT prophylaxis on Sq Lovenox Subjective Date/time seen: 08/07/24 14:28 Interval history: Patient currently doing well. Pending placement Review of Systems Review of Systems: All systems reviewed & are unremarkable except as noted in HPI and below (HPI) Exam Narrative: Poor skin turgor Const: General: comfortable and no acute distress Other: A&O x3. Appears profusely weak. HENMT: Mouth: Yes dry mucous membranes Eyes: Pupils: Equal, round and reactive pupils present Resp: Effort & Inspection: normal respiratory effort Auscultation: clear to auscultation bilaterally Cardio: Rate: regular rate Rhythm: regular rhythm Heart sounds: no gallops, no murmurs and no rubs Neuro: Cranial nerves: Yes Equal, round and reactive pupils present Extrem: General: no edema Objective Data Vital Signs Vital Signs: Vital Signs - 24 hr 08/06/24 14:41 08/06/24 14:41 08/06/24 14:48 Temperature Pulse Rate 70 63 Respiratory Rate 20 20 Blood Pressure Pulse Oximetry 95 Oxygen Delivery Room Air Fraction of Inspired Oxygen 08/06/24 15:02 08/06/24 16:00 08/06/24 20:00 Temperature 98.0 F Pulse Rate 82 67 Respiratory Rate 16 Blood Pressure 173/65 H Pulse Oximetry 98 Oxygen Delivery Room Air Fraction of Inspired Oxygen 08/06/24 20:00 08/06/24 20:44 08/06/24 20:52 Temperature 98.0 F Pulse Rate 76 66 78 Respiratory Rate 16 Blood Pressure 151/64 H Pulse Oximetry 97 Oxygen Delivery Fraction of Inspired Oxygen 08/07/24 00:00 08/07/24 00:09 08/07/24 03:50 Temperature 97.8 F Pulse Rate 79 65 77 Respiratory Rate 14 18 Blood Pressure 154/72 H Pulse Oximetry 98 97 Oxygen Delivery Room Air Fraction of Inspired Oxygen 21 08/07/24 03:50 08/07/24 04:00 08/07/24 04:05 Temperature Pulse Rate 77 73 79 Respiratory Rate 18 18 Blood Pressure Pulse Oximetry Oxygen Delivery Fraction of Inspired Oxygen 08/07/24 05:24 08/07/24 07:27 08/07/24 07:27 Temperature 97.9 F Pulse Rate 97 80 Respiratory Rate 16 20 Blood Pressure 152/70 H Pulse Oximetry 95 96 Oxygen Delivery Room Air Fraction of Inspired Oxygen 08/07/24 07:37 08/07/24 08:00 08/07/24 08:30 Temperature 97.6 F Pulse Rate 75 75 Respiratory Rate 18 14 Blood Pressure 156/75 H Pulse Oximetry 96 Oxygen Delivery Room Air Fraction of Inspired Oxygen 08/07/24 08:41 08/07/24 12:00 08/07/24 14:16 Temperature 97.1 F L Pulse Rate 82 77 Respiratory Rate 20 Blood Pressure 170/78 H Pulse Oximetry 95 97 Oxygen Delivery Room Air Fraction of Inspired Oxygen 08/07/24 14:16 08/07/24 14:27 Temperature Pulse Rate 74 76 Respiratory Rate 16 18 Blood Pressure Pulse Oximetry Oxygen Delivery Fraction of Inspired Oxygen Intake/Output Intake/Output: Intake & Output 08/04/24 08/05/24 08/06/24 08/07/24 23:59 23:59 23:59 23:59 Intake Total 2120 1670 980 540 Output Total 1350 650 825 900 Balance 770 1020 155 -360 Meds/Results Medications: Active Medications Generic Name Dose Route Start Last Admin Trade Name Freq PRN Reason Stop Dose Admin Acetaminophen 650 mg 07/31/24 14:19 07/31/24 14:39 Acetaminophen 325 Mg Tablet PO 650 mg Q4H PRN Administration Mild Pain (1-3) or Fever Albuterol 2 puff 07/31/24 02:08 Albuterol Sulfate (*Sp) Aerosol 1 Puff INHALATION QID PRN shortness of breath or wheezing Albuterol/Ipratropium 3 ml 07/31/24 14:00 08/07/24 14:16 Ipratropium 0.5 Mg/Albuterol Sulfate 2.5 Mg Ampul.Neb 3 Ml INHALATION 3 ml Q6HRT PJ Administration Budesonide 0.5 mg 07/31/24 20:00 08/07/24 07:27 Budesonide Respule Neb 0.5 Mg/2 Ml Amp INHALATION 0.5 mg Q12HRT PJ Administration Carvedilol 12.5 mg 07/31/24 13:10 08/07/24 08:41 Carvedilol 12.5 Mg Tablet PO 12.5 mg Q12HR PJ Administration Dextrose 12.5 gm 07/30/24 21:34 Dextrose 50% 25 Gm/50 Ml Syringe IV PUSH PRN PRN Hypoglycemia Protocol Dorzolamide/Timolol 1 drop 07/31/24 09:00 08/07/24 08:42 Dorzolamide/Timolol Ophth Sarah 10 Ml Bottle EACH EYE 1 drop Q12HR PJ Administration Enoxaparin Sodium 40 mg 08/06/24 09:00 08/07/24 08:41 Enoxaparin 40 Mg/0.4 Ml Syringe SUB-Q 40 mg DAILY PJ Administration Glucagon 1 mg 07/30/24 21:34 Glucagon For Inj 1 Mg Vial IM PRN PRN Hypoglycemia Protocol Glucose 15 gm 07/30/24 21:34 Glucose Oral Gel 15 Gm Of Glucse In 37.5 Gm Tube PO PRN PRN Hypoglycemia Protocol Dextrose 1,000 mls @ 100 mls/hr 07/30/24 21:34 Dextrose 5% 1,000 Ml IVPB PRN PRN Hypoglycemia Protocol Insulin Aspart 2 - 5 units 07/31/24 08:00 08/07/24 12:42 Insulin Aspart (*Bkc) 100 Units/Ml SUB-Q 3 units TIDWM PJ Administration Protocol Insulin Aspart 1 - 2 units 07/31/24 21:00 08/06/24 20:48 Insulin Aspart (*Bkc) 100 Units/Ml SUB-Q 1 units HS PJ Administration Protocol Ondansetron HCl 4 mg 07/31/24 09:44 Ondansetron Inj 4 Mg/2 Ml Vial IV PUSH Q4H PRN Nausea And Vomiting Pantoprazole Sodium 40 mg 07/31/24 09:00 08/07/24 08:41 Pantoprazole 40 Mg Tablet PO 40 mg DAILY PJ Administration Prednisone 5 mg 07/31/24 19:00 08/07/24 06:59 Prednisone 5 Mg Tablet PO 5 mg Q12H PJ Administration Radiology Results: ITS Impressions Chest X-Ray 07/31/24 10:50 Impression: Clear lungs. Chest CT 07/31/24 15:17 IMPRESSION: 1. Mild reticular and groundglass opacities in the basilar and dependent lungs with favor atelectasis or mild pulmonary edema over pneumonia. 2. Mild emphysema. Labs Labs: Laboratory Results - last 24 hr 08/06/24 08/06/24 08/07/24 16:57 20:48 07:23 POC Capillary Glucose 215 H 228 H 171 H 08/07/24 11:19 POC Capillary Glucose 252 H Hospitalist MIPS Advance Care Plan I have confirmed that the patient's Advanced Care Plan is present, code status is documented, or surrogate decision maker is listed in patient medical record.: Yes Medication Reconciliation I have utilized all available resources to obtain, update and review the patients current medications (includes all prescriptions, OTC, herbals, cannabis, and nutritional supplements).: Yes
--- NOTE | 2024-08-07 15:18 | PM.DS ---
DS: Admitting Diagnosis Discharge Date 08/07/2024 Admitting Diagnosis Diarrhea DS: Discharge Diagnosis Discharge Diagnosis (1) Dehydration: Code(s): E86.0 - Dehydration Status: Acute (2) Hypovolemia: Code(s): E86.1 - Hypovolemia Status: Acute (3) GABRIELA (acute kidney injury): Code(s): N17.9 - Acute kidney failure, unspecified Status: Acute (4) Diarrhea: Code(s): R19.7 - Diarrhea, unspecified Status: Acute Plan GABRIELA on CKD from diarrhea and poor oral intake Cr downtrending, baseline 2.22 continue IVF and monitor Diarrhea Patient presented with Diarrhea but has not had any bowel movement since yesterday Encourage oral fluid COPD continue bronchodilator and Pulmicort inhalation pAfib Continue Coreg and s not on anticoagulation DM2 SSi with accucheks HTN titrate home meds with clinical course DVT prophylaxis on Sq Lovenox DS: Summary Hospital Course Hospital Course: 83-year-old male who with history of CKD stage 3, esophageal ulcer, paroxysmal atrial fibrillation, GERD, hyperlipidemia, hypertension, insulin-dependent diabetes mellitus presents with severe weakness and inability to ambulate as well as 6 days of diarrhea. He is accompanied by his whom he lives with and his knees. The patient was recently discharged from [facility] with complaint of diarrhea and weakness. He returns with progressive worsening of symptoms. Reports about 1 large loose liquid brown nonbloody stool per day. He has some nausea but no vomiting. No fever. He was also recently discharged from [facility] for cellulitis and receive antibiotics. Patient has barely had any oral intake per the family. On presentation to ER patient was hypotensive which was responsive to fluid resuscitation. She presents with serum creatinine 3.51. 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 Follows with the oncologist at [facility]. Patient was recently admitted in the hospital due to right hand and arm cellulitis and discharged with antibiotic which he was not able to tolerate. Patient was again readmitted due to diarrhea. He also follows up with Cardiology Nephrology at [facility]. Currently patient is doing well. Creatinine is improved significantly. No episodes of diarrhea. Time Spent with Patient Time attestation: Total time spent providing and/or coordinating discharge services: Exam Narrative: Poor skin turgor Const: General: comfortable and no acute distress Other: A&O x3. Appears profusely weak. HENMT: Mouth: Yes dry mucous membranes Eyes: Pupils: Equal, round and reactive pupils present Resp: Effort & Inspection: normal respiratory effort Auscultation: clear to auscultation bilaterally Cardio: Rate: regular rate Rhythm: regular rhythm Heart sounds: no gallops, no murmurs and no rubs Neuro: Cranial nerves: Yes Equal, round and reactive pupils present Extrem: General: no edema DS: Data Data Completed and Pending Labs on day of discharge: Labs from last 24 hours 08/07/24 08/07/24 08/06/24 11:19 07:23 20:48 POC Capillary Glucose 252 H 171 H 228 H 08/06/24 16:57 POC Capillary Glucose 215 H Discharge Plan Discharge Attending physician on discharge: Robinson Jama Discharging Clinician: Robinson Jama Patient Disposition: Home Activity: as tolerated Diet: heart healthy Discharge Instructions: Check blood pressure 1 to 2 times a day. Record and bring into your doctor for review. Call your doctor if your blood pressure is greater than 180/110 or less than 90/45. Walk with cane or other assist device. Take precautions to avoid falls. Rise slowly from a lying or sitting position. Pause before standing or walking. Contact your doctor or call 911 and come to the Emergency Room if you have any type of trauma, lightheadedness with standing or other worrisome symptoms. Avoid NSAIDs (ibuprofen, naproxen, Aleve). Tylenol is safe to take. Follow-up with your primary care provider in 1-2 weeks. Please call for appointment. Follow-up with Cardiology in 2-4 weeks. Please call for an appointment. Thank you for using [facility] for your health care needs. Patient Instructions: Heart Failure (GEN), Couch Catheter Placement and Care (GEN), Suicide Prevention (GEN), Antibiotic Form Patient Language: Bengali Stand Alone Forms: General Discharge Information Follow-up/Referrals: Jeane,Kraig Fernandez MD [Primary Care Provider] - Discharge Medications: Continued pantoprazole 40 mg tablet,delayed release (DR/EC) 40 mg PO DAILY insulin aspart U-100 [Novolog FlexPen U-100 Insulin] 100 unit/mL (3 mL) insulin pen 8 unit SUBCUT TID Protocol: Insulin Corrective Low-Dose Condition: glucose < 70 mg/dl Dose/Route: Follow Hypoglycemia Order Condition: glucose 70-200 mg/dl Dose/Route: No additional insulin Condition: glucose 201-250 mg/dl Dose/Route: 2 units sub-Q Condition: glucose 251-300 mg/dl Dose/Route: 3 units sub-Q Condition: glucose 301-350 mg/dl Dose/Route: 4 units sub-Q Condition: glucose 351-400 mg/dl Dose/Route: 5 units sub-Q Condition: glucose > 400 mg/dl Dose/Route: Call MD Protocol Text: *No Correction Dose at Bedtime* Rx Instructions: Pt states he takes for glucose level 150 or higher. pt takes this intermittently insulin glargine [Lantus Solostar U-100 Insulin] 100 unit/mL (3 mL) insulin pen 28 unit subcut QHS Rx Instructions: Pt states he holds medication if glucose levels under 140. albuterol sulfate 90 mcg/actuation HFA aerosol inhaler 2 puff inhalation QID PRN (Reason: shortness of breath or wheezing) Qty: 8.5 2RF carvedilol 12.5 mg tablet 12.5 mg PO Q12H dorzolamide-timolol 22.3-6.8 mg/mL drops 1 drp EACH EYE Q12H oxycodone 5 mg tablet 5 mg PO Q6H PRN (Reason: pain) prednisone 5 mg tablet 5 mg PO Q12H pravastatin 20 mg tablet 20 mg PO HS Januvia 25 mg tablet 25 mg PO DAILY insulin aspart U-100 [Novolog FlexPen U-100 Insulin] 100 unit/mL (3 mL) insulin pen 1 sliding scale dose SUBCUT TID ondansetron 4 mg tablet,disintegrating 4 mg PO Q8H PRN (Reason: nausea and vomiting) Qty: 10 0RF Held abiraterone 250 mg tablet 1,000 mg PO HS Hold Instructions: Resume on 08/19/24. Please discuss with your urologist/ oncologist and continue lisinopril 20 mg tablet 40 mg PO DAILY Hold Instructions: Resume on 09/11/24. Please discuss with Nephrology if needs to continue chlorthalidone 25 mg tablet 25 mg PO DAILY Hold Instructions: Resume on 09/11/24. Please discuss with Nephrology if needs to be continued Discontinued albuterol sulfate [Ventolin HFA] 90 mcg/actuation HFA aerosol inhaler 1 inh inhalation QID Qty: 8.5 0RF Date of admission: 08/01/24 10:21 Primary Care Provider: Jeane,Kraig Fernandez Admitting Provider: Argentina Corona Attending physician on admission: Argentina Corona Condition: Stable
[2024-08-07 16:17] LABS: Glucose Point of Care 188 mg/dl (65-105)
== END 2024-08-07 16:52 | DRG 683 ==
LOC: ANHED 19:48 → ANH2MED 20:50
PROVIDERS: Emergency Medicine; Internal Medicine; Admitting Provider General Practice; Emergency Provider Emergency Medicine; PCP Internal Medicine; Visit Provider General Practice
DX: N17.9 Acute kidney failure, unspecified (principal); C79.51 Secondary malignant neoplasm of bone; I48.0 Paroxysmal atrial fibrillation; I12.9 Hypertensive chronic kidney disease with stage 1 through stage 4 chronic kidney disease, or unspecified chronic kidney disease; N18.30 Chronic kidney disease, stage 3 unspecified; E86.0 Dehydration; E86.1 Hypovolemia; E11.22 Type 2 diabetes mellitus with diabetic chronic kidney disease; E78.5 Hyperlipidemia, unspecified; K21.9 Gastro-esophageal reflux disease without esophagitis; F17.210 Nicotine dependence, cigarettes, uncomplicated; Z20.822 Contact with and (suspected) exposure to COVID-19; Z79.4 Long term (current) use of insulin; Z85.46 Personal history of malignant neoplasm of prostate; J44.9 Chronic obstructive pulmonary disease, unspecified
CPT/HCPCS: 36415; 36600; 71045; 71250; 80048; 80053; 81001; 82805; 82948; 83605; 83735; 84100; 84132; 85018; 85025; 85027; 87040; 87045; 87427; 87449; 87493; 93005; 94640; 96361; 97110; 97161; 97166; 97530; 97535; 99285; A9270; G0378; J1650; J1815; J7030; J7512

== ENCOUNTER 2024-08-27 17:36 | Emergency (ER) | payer MEDICARE, SELFPAY ==
--- NOTE | ~2024-08-27 | CT_ITS ---
CLINICAL INDICATION: Diffuse abdominal pain and nausea COMPARISON: 07/29/2024. Reference is also made to a renal ultrasound dated 09/18/2020. TECHNIQUE: Multiple contiguous axial images of the abdomen and pelvis were performed without the admi nistration of intravenous contrast The dose-length product (DLP) was 1085.47 mGy-cm. Automated exposure control and iterative reconstruction technique were employed. FINDINGS/OBSERVATIONS: Visualized lower thorax: The bilateral lung bases are clear. The heart is of normal size, without pericardial effusion. Small hiatal hernia is present. Liver: The liver demonstrates homogeneous attenuation and is not enlarged. Gallbladder and biliary system: The gallbladder is surgically absent. Pancreas: Limited evaluation of the pancreas secondary to the lack of intravenous contrast. Spleen: Punctate calcifications identified within the splenic parenchyma, suggesting prior granulomat ous disease. The remainder of the spleen demonstrates otherwise homogeneous attenuation and is not enlarged. Kidneys: Bilateral well-circumscribed rounded foci of fluid attenuation, likely representing benign c ysts, unchanged from prior. Redemonstration of a 5 mm, likely hemorrhagic cyst exophytic from the right kidney. The remainder of the bilateral kidneys are otherwise unremarkable, without hydronephrosis or renal ca lculi. Adrenal glands: Unremarkable. Gastrointestinal tract: Colonic diverticulosis without surrounding inflammatory change. Fecal stasis within the colon. Appendix: The appendix is of normal caliber (axial series, images 112 through 125). Vasculature: Unremarkable. Lymph nodes: Limited evaluation without intravenous contrast. Pelvic structures: The bladder is distended, and otherwise unremarkable. The prostate gland is surgically absent. Hough for a penile prosthetic within the left hemipelvis. Body wall and musculoskeletal: Small fat and omental containing umbilical hernia. Fat-containing left inguinal hernia. Age-appropriate degenerative disease lumbosacral spine IMPRESSION: No acute findings within the abdomen or pelvis. Innumerable nonacute findings as detailed above Reviewed, dictated and finalized at location A.
--- NOTE | ~2024-08-27 | XR_ITS ---
CHEST RADIOGRAPH CLINICAL HISTORY: nausea, cough . COMPARISON: 07/31/2024 TECHNIQUE: Single portable view of the chest. Examination is markedly limited by patient rotation (rotated to the patient's right). FINDINGS The cardiomediastinal silhouette is unremarkable. The lungs are clear. IMPRESSION: No focal infiltrate or effusion. Reviewed, dictated and finalized at location A.
--- OUTSIDE RECORDS SUMMARY | 2024-08-27 17:38 | XMS_ITS | Encounter Summary ---
Author Organization [facility] Address [address] [place] [address] Phone Care Team Providers Care Systems Test Engineer Name Role Phone Kraig Ching MD Primary Care Provider [phone] Gautam Cope MD Unavailable Tramaine Roe MD Unavailable [phone] Sukhwinder Uribe MD Unavailable [phone] Shay Guillermo MD Unavailable [phone] Marsha Landis RN Unavailable Unavailab Clarissa Harry RN Unavailable [phone] Encounter Details Date Type Department Care Team (Late st Contact Info) Description 12/09/2021 Telephone [facility] Oncology [address] [facility] Advanced Medicine 7th [place] [address] [place] [address] Muna Saleem RN Social History [...] on file 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 Gender Identity Not on file Sexual Orientation Not on file documented as of this encounter Functional Status documented as of this encounter Plan of Treatment Not on file documented as of this encounter Visit Diagnoses Not on filedocumented in this encounter Care Teams Systems Test Engineer Relationship Specialty Start Date End Date Kraig Ching MD [address] [place] [address] PCP - General 07/10/16 Gautam Cope MD [address] [place] [address] Medical Oncologist/Fashion Supervisor Medical Oncology 08/18/18 Tramaine Roe MD [address] [place] [address] Referring Physician Urology 08/18/18 Sukhwinder Uribe MD [address] [place] [address] Consulting Physician Urology 08/18/18 Shay Guillermo MD [address] [place] [address] Referring Physician Urology 08/18/18 Marsha Landis, RN Registered Nurse 11/17/18 Clarissa Luna RN [address] [place] [address] [address] [place] [address] Talent Recruiter 04/04/24 04/26/24 documented as of this encounter
--- OUTSIDE RECORDS SUMMARY | 2024-08-27 17:38 | XMS_ITS | Encounter Summary ---
Author Organization [facility] Healthcare Address [address] [place] [address] Care Team Providers Care Form Coverer Name Role Phone Kraig Ching MD Primary Care Provider [phone] Gautam Cope MD Unavailable Tramaine Roe MD Unavailable [phone] Sukhwinder Uribe MD Unavailable Shay Guillermo MD Unavailable [phone] Marsha Landis RN Unavailable Unavailab le Encounter Details Date Type Department Care Team (Late st Contact Info) Description 07/21/2024 Results Follow-Up [facility] at [address] [address] Fadi Corrales NP [address] [place] [address] [address] [place] [address] Urine culture Urine, clean voided Social History Tobacco Use Types Packs/Day Years Used Date Smoking Tobacco: Former Cigarettes 0.3 52 1 958 - 2010 Passive Smoke Exposure: Past Smokeless Tobacco: Never Comments:Smoking History Pac ks/day: 10 Cigarettes Alcohol Use Standard Drinks/Week Comments Yes 0 (1 standard drink = 0.6 oz pur e alcohol) Occasional glass of wine. [facility] Utilities Answer Date Recorded In the past 12 months has [employer] electric, gas, oil, or water company threatened [...] often do you attend chur ch or amish services? 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 Author ZAK General Goal - Patient establishes care with [facility] ACO Care Management On track(2023 1:22 PM DISTRICT ASSOCIATE JUDGE) No Clarissa Luna RN Note: Problem: Lack of [facility] communication Interventions: - Provide coordination between [facility] company and patient. - Ensure [facility] has appropriate referral and orders to establish care with patient. - Follow up with patient to ensure initial visit was completed by [facility] and that a [facility] plan has been started. ZAK General Goal - Patient schedules and keeps appointments with all recommended providers ACO Care Management Improving( 1:22 PM DISTRICT ASSOCIATE JUDGE) No Clarissa Luna RN Note: Problem: Potential [...] on filedocumented in this encounter Care Teams Form Coverer Relationship Specialty Start Date End Date Kraig Ching MD [address] [facility] [address] [place] [address] PCP - General 07/10/16 Gautam Cope MD [address] [facility] [address] [place] [address] Medical Oncologist/Security Operations Center Operator Medical Oncology 08/18/18 Tramaine Roe MD [address] [facility] [address] [place] [address] Referring Physician Urology 08/18/18 Sukhwinder Uribe MD [address] [facility] [address] [place] [address] Consulting Physician Urology 08/18/18 Shay Guillermo MD [address] [facility] [address] [place] [address] Referring Physician Urology 08/18/18 Marsha Landis, RN Registered Nurse 11/17/18 documented as of this encounter
--- OUTSIDE RECORDS SUMMARY | 2024-08-27 17:38 | XMS_ITS | Encounter Summary ---
Author Organization [facility] Healthcare Address [address] [place] [address] Care Team Providers Care Fire Captain Marine Name Role Phone Kraig Ching MD Primary Care Provider [phone] Gautam Cope MD Unavailable Tramaine Roe MD Unavailable [phone] Sukhwinder Uribe MD Unavailable [phone] Shay Guillermo MD Unavailable [phone] Marsha Landis RN Unavailable Unavailab le Reason for Visit * Reason Onset Date Comments Medical Question/Miscellaneous 08/21/2024 Encounter Details Date Type Department Care Team (Late st Contact Info) Description 08/21/2024 Telephone [facility] [address] [place] [address] Kraig Ching MD [address] [facility] [address] [place] [address] Medical Question/Miscellaneous Social History Tobacco Use Types Packs/Day Years Used Date Smoking Tobacco: Former Cigarettes 0.3 52 1 958 - 2010 Passive Smoke Exposure: Past Smokeless Tobacco: Never Comments:Smoking History Pac ks/day: 10 Cigarettes Alcohol Use Standard Drinks/Week Comments Yes 0 (1 standard drink = 0.6 oz pur e alcohol) Occasional glass of wine. [facility] Utilities Answer Date Recorded In the past 12 months has [employer] electric, gas, oil, or water company threatened [...] often do you attend chur ch or sabianism services? 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 He can uber however it is too expensive and hewill be going 3 days a week and has not issues with driving and drives to Dr. Encarnacion office oftenand they advised him that he will need something from provider advising he can drive to the location for rehab. Patient would like a call to discuss further.The rehab center is located at [address] [place] [address] Does message need to be routed? Yes-Action Needed documented in this encounter Plan of Treatment Not on file documented as of this encounter Goals Goal Patient Goal Type Associated Problems Recent Progress Patient-Stated? Author ZAK General Goal - Patient establishes care with [facility] ACO Care Management On track(2023 1:22 PM AWNING SPREADER) No Clarissa Luna RN Note: Problem: Lack of [facility] communication Interventions: - Provide coordination between [facility] company and patient. - Ensure [facility] has appropriate referral and orders to establish care with patient. - Follow up with patient to ensure initial visit was completed by [facility] and that a [facility] plan has been started. ZAK General Goal - Patient schedules and keeps appointments with all recommended providers ACO Care Management Improving( 1:22 PM AWNING SPREADER) Clarissa Arana RN Note: Problem: Potential for [...] on filedocumented in this encounter Care Teams Fire Captain Marine Relationship Specialty Start Date End Date Kraig Ching MD [address] [place] [address] PCP - General 07/10/16 Gautam Cope MD [address] [place] [address] Medical Oncologist/Candle Maker Medical Oncology 08/18/18 Tramaine Roe MD [address] [place] [address] Referring Physician Urology 08/18/18 Sukhwinder Uribe MD [address] [place] [address] Consulting Physician Urology 08/18/18 Shay Guillermo MD [address] [place] [address] Referring Physician Urology 08/18/18 Marsha Landis, RN Registered Nurse 11/17/18 documented as of this encounter
--- OUTSIDE RECORDS SUMMARY | 2024-08-27 17:38 | XMS_ITS | Encounter Summary ---
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 Gender Identity Not on file Sexual Orientation Not on file documented as of this encounter Functional Status documented as of this encounter Plan of Treatment Scheduled Orders Name Type Priority Associated Diagnoses Orde r Schedule CARDIOLOGY DOCUMENT SCAN Cardiac Services Ordered: 03/21/2023 documented as of this encounter Visit Diagnoses Not on filedocumented in this encounter Care Teams Round Corner Cutter Operator Relationship Specialty Start Date End Date Kraig Ching MD [address] [facility] [address] [place] [address] PCP - General 07/10/16 Gautam Cope MD [address] [facility] [address] [place] [address] Medical Oncologist/Farm Assistant Medical Oncology 08/18/18 Tramaine Roe MD [address] [facility] [address] [place] [address] Referring Physician Urology 08/18/18 Sukhwinder Uribe MD [address] [facility] [address] [place] [address] Consulting Physician Urology 08/18/18 Shay Guillermo MD [address] [facility] [address] [place] [address] Referring Physician Urology 08/18/18 Marsha Landis RN Registered Nurse 11/17/18 Clarissa Luna RN [address] [place] [address] [address] [place] [address] Armature Winder 04/04/24 04/26/24 documented as of this encounter
--- OUTSIDE RECORDS SUMMARY | 2024-08-27 17:38 | XMS_ITS | Encounter Summary ---
Author Organization [facility] Address [address] [place] [address] Phone Care Team Providers Care Supervisor Billposting Name Role Phone Kraig Ching MD Primary Care Provider [phone] Gautam Cope MD Unavailable Tramaine Roe MD Unavailable [phone] Sukhwinder Uribe MD Unavailable [phone] Shay Guillermo MD Unavailable [phone] Marsha Landis RN Unavailable Unavailab Ilene Kaur RN Unavailable [phone] Clarissa Luna RN Unavailable [phone] Encounter Details Date Type Department Care Team (Late st Contact Info) Description 12/06/2018 Telephone [facility] Oncology [address] [facility] Advanced Medicine 7th [place] [address] Salena Bryan NP [address] [place] [address] Social History Tobacco Use Types Packs/Day Years [...] on file 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 Male 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 Gender Identity Not on file Sexual Orientation Not on file documented as of this encounter Plan of Treatment Not on file documented as of this encounter Visit Diagnoses Not on filedocumented in this encounter Care Teams Supervisor Billposting Relationship Specialty Start Date End Date Kraig Ching MD [address] [place] [address] PCP - General 07/10/16 Gautam Cope MD [address] [place] [address] Medical Oncologist/Data Abstractor Medical Oncology 08/18/18 Tramaine Roe MD [address] [place] [address] Referring Physician Urology 08/18/18 Sukhwinder Uribe MD [address] [place] [address] Consulting Physician Urology 08/18/18 Shay Guillermo MD [address] [place] [address] Referring Physician Urology 08/18/18 Marsha Landis, RN Registered Nurse 11/17/18 Ilene Fragoso RN [address] [place] [address] After School Caregiver 12/23/18 11/01/19 Clarissa Luna RN [address] [facility] [address] [place] [address] After School Caregiver 04/04/24 04/26/24 documented as of this encounter
--- OUTSIDE RECORDS SUMMARY | 2024-08-27 17:38 | XMS_ITS | Encounter Summary ---
Author Organization [facility] Address [address] [place] [address] Care Team Providers Care Soda Dry House Operator Name Role Phone Kraig Ching MD Primary Care Provider [phone] Gautam Cope MD Unavailable Tramaine Roe MD Unavailable [phone] Sukhwinder Uribe MD Unavailable [phone] Shay Guillermo MD Unavailable Marsha Landis RN Unavailable Unavailab le Reason for Visit * Reason Onset Date Comments ZAK Questions 08/25/2024 Encounter Details Date Type Department Care Team (Late st Contact Info) Description 08/25/2024 Telephone [facility] [address] [facility] [address] [place] [address] Kraig Ching MD [address] [facility] [address] [place] [address] ZAK Questions Social History Tobacco Use Types Packs/Day Years Used Date Smoking Tobacco: Former Cigarettes 0.3 52 1 958 - 2010 Passive Smoke Exposure: Past Smokeless Tobacco: Never Comments:Smoking History Pac ks/day: 10 Cigarettes Alcohol Use Standard Drinks/Week Comments Yes 0 (1 standard drink = 0.6 oz pur e alcohol) Occasional glass of wine. [facility] Utilities Answer Date Recorded In [...] often do you attend chur ch or jewish services? Never 04/04/2024 Do you [...] any time in the past 12 m onths, were you homeless or living in a group home (including now)? No 04/04/2024 Personal Safety Answer Date Recorded Have you ever been in or are you currently in a harmful physical or emotional relationship or is someone making you feel afraid or unsafe? Denies 06/09/2023 Sex and Gender Information Value Date Recorded Sex Assigned at Not on file Legal Sex Male 4:46 PM RELAY SHOP SUPERVISOR Gender Identity Not on file Sexual Orientation Not on file documented as of this encounter Miscellaneous Notes * Telephone Encounter - Graciela Gurrola - 08/25/2024 10:03 AM CDT ZAK Questions (Message from [facility] Access Center-Plant Engineering Manager): Has patient been discharged at time of call? Yes Date Admitted: 08/01/24 Date Discharged: 08/19/24 Facility Admitted To: [facility] Reason for Stay? Kidney issues If prescribed new medications, do you have any questions or concerns? unknown Do you have enough medication to get you to your follow-up appointment? N/a Since being released do you feel better, the same, or worse? unknown Date of ZAK Appointment: Needing to schedule with patient. [employer] unable to contact patient reharding hospital stay Do you have transportation to the appointment? unknown Additional Comments: none Does message need to be routed? Yes-Action Needed documented in this encounter Plan of Treatment Not on file documented as of this encounter Goals Goal Patient Goal Type Associated Problems Recent Progress Patient-Stated? Author ZAK General Goal - Patient establishes care with [facility] ACO Care Management On track(2023 1:22 PM RELAY SHOP SUPERVISOR) Clarissa Arana, RN Note: Problem: Lack of [facility] communication Interventions: - Provide coordination between [facility] company and patient. - Ensure [facility] has appropriate referral and orders to establish care with patient. - Follow up with patient to ensure initial visit was completed by [facility] and that a [facility] plan has been started. ZAK General Goal - Patient schedules and keeps appointments with all recommended providers ACO Care Management Improving( 1:22 PM RELAY SHOP SUPERVISOR) Clarissa Arana RN Note: Problem: Potential for [...] on filedocumented in this encounter Care Teams Soda Dry House Operator Relationship Specialty Start Date End Date Kraig Ching MD [address] [place] [address] PCP - General 07/10/16 Gautam Cope MD [address] [place] [address] Medical Oncologist/Media Consultant Medical Oncology 08/18/18 Tramaine Roe MD [address] [place] [address] Referring Physician Urology 08/18/18 Sukhwinder Uribe MD [address] [place] [address] Consulting Physician Urology 08/18/18 Shay Guillermo MD [address] [facility] [address] [place] [address] Referring Physician Urology 08/18/18 Marsha Landis, RN Registered Nurse 11/17/18 documented as of this encounter
--- OUTSIDE RECORDS SUMMARY | 2024-08-27 17:38 | XMS_ITS | Clinical Summary ---
Author Organization [facility] Address [address] [place] [address] Care Team Providers Care Checker Product Design Name Role Phone Unavailable Primary Care Provider [...]
--- OUTSIDE RECORDS SUMMARY | 2024-08-27 17:38 | XMS_ITS | Encounter Summary ---
Author Organization [facility] Healthcare Address [address] [place] [address] Care Team Providers Care City Mail Carrier Name Role Phone Kraig Ching MD Primary Care Provider [phone] Gautam Cope MD Unavailable Tramaine Roe MD Unavailable [phone] Sukhwinder Uribe MD Unavailable [phone] Shay Guillermo MD Unavailable [phone] Marsha Landis RN Unavailable Unavailab le Reason for Visit * Reason Onset Date Comments Medical Question/Miscellaneous 08/24/2024 Encounter Details Date Type Department Care Team (Late st Contact Info) Description 08/24/2024 Telephone [facility] [address] [facility] [address] [place] [address] Kraig Ching MD [address] [facility] [address] [place] [address] Medical Question/Miscellaneous Social History Tobacco Use Types Packs/Day Years Used Date Smoking Tobacco: Former Cigarettes 0.3 52 1 958 - 2010 Passive Smoke Exposure: Past Smokeless Tobacco: Never Comments:Smoking History Pac ks/day: 10 Cigarettes Alcohol Use Standard Drinks/Week Comments Yes 0 (1 standard drink = 0.6 oz pur e alcohol) Occasional glass of wine. [facility] Utilities Answer Date Recorded In the past 12 months has [employer] electric, gas, oil, or water company threatened [...] often do you attend chur ch or adventism services? 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 Does message need to be routed? Yes-Action Needed documented in this encounter Plan of Treatment Not on file documented as of this encounter Goals Goal Patient Goal Type Associated Problems Recent Progress Patient-Stated? Author ZAK General Goal - Patient establishes care with [facility] ACO Care Management On track(2023 1:22 PM WOOD FLOOR REFINISHER) No Clarissa Luna RN Note: Problem: Lack of [facility] communication Interventions: - Provide coordination between [facility] company and patient. - Ensure [facility] has appropriate referral and orders to establish care with patient. - Follow up with patient to ensure initial visit was completed by [facility] and that a [facility] plan has been started. ZAK General Goal - Patient schedules and keeps appointments with all recommended providers ACO Care Management Improving( 1:22 PM WOOD FLOOR REFINISHER) No Clarissa Luna RN Note: Problem: Potential [...] filedocumented in this encounter Care Teams City Mail Carrier Relationship Specialty Start Date End Date Kraig Ching MD [address] [place] [address] PCP - General 07/10/16 Gautam Cope MD [address] [place] [address] Medical Oncologist/Distribution Associate Medical Oncology 08/18/18 Tramaine Roe MD [address] [place] [address] Referring Physician Urology 08/18/18 Sukhwinder Uribe MD [address] [place] [address] Consulting Physician Urology 08/18/18 Shay Guillermo MD [address] [facility] [address] [place] [address] Referring Physician Urology 08/18/18 Marsha Landis, RN Registered Nurse 11/17/18 documented as of this encounter
--- OUTSIDE RECORDS SUMMARY | 2024-08-27 17:39 | XMS_ITS ---
Author Organization [facility] Address [address] [place] [address] Care Team Providers Care Mopper Name Role Phone Kraig Ching MD Primary Care Provider [phone] Gautam Cope MD Unavailable Tramaine Roe MD Unavailable [phone] Sukhwinder Uribe MD Unavailable [phone] Shay Guillermo MD Unavailable Marsha Landis RN Unavailable Unavailab Active Problems Problem Noted Date Diagnosed Date Statin myopathy 06/08/2024 Essential hypertension 05/30/2024 Type 2 diabetes mellitus wit h stage 3b chronic kidney disease, with long-term current use of insulin 05/30/2024 Assessment & Plan (06/08/2024 4:46 AM ROUTE SERVICE MANAGER): Continue current regimen.Limit nephrotoxins.Reviewed creatinine. Avoid [...] 03/08/2023 Assessment & Plan (06/08/2024 4:46 AM ROUTE SERVICE MANAGER): Hypertension is controlled. Continue current regimen. Assessment & Plan (10/05/2023 12:54 PM CDT): Hypertension is controlled. Decrease carvedilol to 12.5 mg. Assessment & Plan (03/08/2023 7:11 AM ROUTE SERVICE MANAGER): Hypertension is controlled. Continue current regimen. 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 Avoid NSAIDS. Assessment & Plan (10/05/2023 5:50 AM CDT): Continue current regimen.Limit nephrotoxins.Reviewed creatinine. Avoid NSAIDS. Assessment & Plan (03/08/2023 7:12 AM ROUTE SERVICE MANAGER): Continue current regimen.Limit nephrotoxins.Reviewed creatinine. Avoid NSAIDS. CKD (chronic kidney disease) 03/08/2022 Assessment & Plan (06/08/2024 4:45 AM ROUTE SERVICE MANAGER): Limit nephrotoxins. Monitor creatinine. Avoid NSAIDS.Follow with Nephrology. 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 Continue PPI. Assessment & Plan (08/18/2022 6:36 AM CDT): Reviewed dietary modifications. Continue PPI. Assessment & Plan (02/12/2022 6:03 AM CDT): Reviewed dietary modifications. Continue PPI. Assessment & Plan (04/08/2021 5:55 AM ROUTE SERVICE MANAGER): Reviewed dietary modifications. Continue PPI. 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 Continue home PT exercises. Advised using a walker. Assessment & Plan (08/18/2022 11:47 AM CDT): Continue oxycodone. Continue home PT exercises. Advised using a walker. Assessment & Plan (02/12/2022 11:41 AM CDT): Continue oxycodone. Continue home PT exercises. A prescription for a walker. Assessment & Plan (04/08/2021 5:55 AM ROUTE SERVICE MANAGER): Continue oxycodone. Continue home PT exercises. Continue walker. Assessment & Plan (12/26/2020 10:48 AM CDT): Continue oxycodone. Script for walker. Assessment & Plan (09/26/2020 11:29 AM CDT): Continue ROM exercises and follow with Pain Management. Refill oxycodone as needed. Prostate cancer 09/06/2018 Assessment & Plan (06/08/2024 4:46 AM ROUTE SERVICE MANAGER): Follow with Oncology. Continue Zytiga. Assessment [...] 01/25/2018 Assessment & Plan (03/07/2018 6:54 AM ROUTE SERVICE MANAGER): Hypertension is controlled. Continue current regimen. [...] creatinine. Assessment & Plan (04/08/2021 5:54 AM ROUTE SERVICE MANAGER): Hypertension is controlled. Continue current regimen.Limit [...] NSAIDS. Assessment & Plan (03/07/2018 6:55 AM ROUTE SERVICE MANAGER): Hypertension is controlled. Continue current regimen. Limit nephrotoxins. Monitor creatinine. Avoid NSAIDS. Assessment & Plan (11/25/2017 7:09 AM CDT): Limit nephrotoxins. Monitor creatinine. Avoid NSAIDS. Duodenal ulcer 11/25/2017 Assessment & Plan (11/25/2017 10:16 AM CDT): Reviewed GI note . Continue pantoprazole. Avoid NSAIDS. Refer for EGD. PAF (paroxysmal atrial fibrillation) 10/22/2017 Assessment & Plan (03/07/2018 6:54 AM ROUTE SERVICE MANAGER): Continue rate control. Continue anticoagualtion. Anticipate [...] NSAIDS. Assessment & Plan (03/07/2018 6:55 AM ROUTE SERVICE MANAGER): Limit nephrotoxins. Monitor creatinine. Avoid NSAIDS. [...] diet. Assessment & Plan (04/08/2021 10:17 AM ROUTE SERVICE MANAGER): Reviewed HgBA1C elevated at 10.6 on [...] therapy. Assessment & Plan (03/07/2018 6:57 AM ROUTE SERVICE MANAGER): Continue pravastatin. He had myalgias on [...] diet. Assessment & Plan (03/02/2017 6:53 AM ROUTE SERVICE MANAGER): Hypertension is controlled. Continue current regimen. Reviewed low sodium diet. Assessment & Plan (01/15/2017 6:44 AM CDT): Reviewed proper diet. Continue statin therapy. Hyperlipidemia 01/12/2012 Assessment & Plan (06/08/2024 4:46 AM ROUTE SERVICE MANAGER): Continue pravastatin. Order lipid panel at [...] 05/28/2023 Assessment & Plan (03/08/2023 11:40 AM ROUTE SERVICE MANAGER): Agree with cataract surgery. He has [...] 08/30/2017 Assessment & Plan (03/02/2017 10:48 AM ROUTE SERVICE MANAGER): Mood is improved. Monitor off medication. [...] 200. Assessment & Plan (03/07/2018 6:56 AM ROUTE SERVICE MANAGER): Continue current regimen. Advised annual eye exam.Limit nephrotoxins. Monitor creatinine. Avoid NSAIDS. Assessment & Plan (11/25/2017 10:16 AM CDT): Continue current regimen and add Januvia.Advised annual eye exam. Limit nephrotoxins. Monitor creatinine. Avoid NSAIDS. Assessment & Plan (01/15/2017 6:44 AM CDT): Continue current regimen. Advised annual eye exam. Reviewed proper diet. Continue statin therapy.
--- OUTSIDE RECORDS SUMMARY | 2024-08-27 17:39 | XMS_ITS | Clinical Summary ---
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 Name Role Phone Kraig Ching MD Primary Care Provider [phone] Gautam Cope MD Unavailable Tramaine Roe MD Unavailable [phone] Sukhwinder Uribe MD Unavailable [phone] Shay Guillermo MD Unavailable [phone] Marsha Landis RN Unavailable Unavailab le Allergies Active Allergy Reactions Criticality Noted Date Comments Atorvastatin Muscle pain Medium 12/14/2019 Medications pen needle, diabetic (BD Ultra-Fine Short Pen Needle) 31 gauge x 5/16 needle USE TO INJECT INSULIN 4 TIMES EVERY DAY DIRECTED 400 each 11 3 Active PreviDent 5000 Plus 1.1 % creamIndications :Prevention of Dental Caries Apply topically nightly 3 Active NovoLOG 100 unit/mL (3 mL) pen for injection ADMINISTER 8 UNITS UNDER THE SKIN THREE TIMES DAILY BEFORE MEALS 3 mL 11 4 Active predniSONE (DELTASONE) 5 mg tablet Take 1 tablet (5 mg) by mouth two times a day 60 tablet 11 4 Active carvediloL (COREG) 12.5 mg tablet Take 1 tablet (12.5 mg total) by mouth 2 (two) times a day with meals 60 tablet 11 4 10/05/19 25 Active lisinopriL (PRINIVIL,ZESTRI L) 40 mg tablet Take 1 tablet (40 mg total) by mouth daily 90 tablet 3 4 12/01/19 25 Active Januvia 25 mg tabletIndication s:Type 2 diabetes mellitus with stage 3 chronic kidney disease, without long-term current use of insulin (HCC) TAKE 1 TABLET BY MOUTH DAILY 30 tablet 11 4 Active blood glucose diagnostic (Accu-Chek Guide test strips) strip USE DIRECTED TWICE DAILY 200 strip 1 4 Active abiraterone (ZYTIGA) 250 mg tabletIndication s:Prostate cancer (HCC) TAKE 4 TABLETS BY MOUTH DAILY TAKE WITH A GLASS OF WATER, ON AN EMPTY STOMACH AT LEAST 1 HR BEFORE OR 2 HRS AFTER FOOD. 120 tablet 6 4 Active dorzolamide-gilbert loL (COSOPT) 22.3-6.8 mg/mL ophthalmic solution INSTILL 1 DROP IN BOTH EYES TWICE DAILY 10 mL 11 4 Active albuterol HFA (PROVENTIL HFA,VENTOLIN HFA,PROAIR HFA) 90 mcg/actuation inhaler Inhale 2 puffs every 8 (eight) hours as needed for wheezing or shortness of breath 1 each 3 4 Active cyanocobalamin (Vitamin B-12) 1,000 mcg tabletIndication s:Prevention of Vitamin B12 Deficiency Take 1 tablet (1,000 mcg total) by mouth daily 30 tablet 11 4 04/07/20 25 Active venlafaxine XR (EFFEXOR-XR) 37.5 mg 24 hr capsuleIndicatio ns:Vasomotor symptoms r/t androgen deprivation therapy. Take 1 capsule (37.5 mg total) by mouth daily 30 capsule 11 5 04/25/19 26 Active ergocalciferol (VITAMIN D) 50,000 unit capsule Take 1 capsule (50,000 Units total) by mouth once a week Take 1 capsule every 7 days 10 capsule 5 04/28/[address] (PROTONIX) 40 mg EC tabletIndication s:Gastroesophage al reflux disease, unspecified whether esophagitis present TAKE 1 TABLET(40 MG) BY MOUTH DAILY 90 tablet 1 5 Active Accu-Chek Fastclix Lancet Drum misc USE DIRECTED TWICE DAILY 204 each 5 Active oxyCODONE (ROXICODONE) 5 mg immediate release tabletIndication s:Pain Take 1 tablet (5 mg total) by mouth every 6 (six) hours as needed for pain 60 tablet 5 Active chlorthalidone (HYGROTON) 25 mg tablet TAKE 1 TABLET(25 MG) BY MOUTH DAILY 90 tablet 2 5 Active pravastatin (PRAVACHOL) 20 mg tablet TAKE 1 TABLET(20 MG) BY MOUTH EVERY NIGHT 90 tablet 3 5 Active insulin glargine (LANTUS) 100 unit/mL (3 mL) pen for injection ADMINISTER 28 UNITS UNDER THE SKIN DAILY 6 mL 1 5 Active Active Problems Problem Noted Date Diagnosed Date Statin myopathy 06/08/2024 Essential hypertension 05/30/2024 Type 2 diabetes mellitus wit h stage 3b chronic kidney disease, with long-term current use of insulin 05/30/2024 Assessment & Plan (06/08/2024 4:46 AM SOFTWARE DEVELOPER INTERN): Continue current regimen.Limit nephrotoxins.Reviewed creatinine. Avoid NSAIDS. [...] 03/08/2023 Assessment & Plan (06/08/2024 4:46 AM SOFTWARE DEVELOPER INTERN): Hypertension is controlled. Continue current regimen. Assessment & Plan (10/05/2023 12:54 PM CDT): Hypertension is controlled. Decrease carvedilol to 12.5 mg. Assessment & Plan (03/08/2023 7:11 AM SOFTWARE DEVELOPER INTERN): Hypertension is controlled. Continue current regimen. 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 Avoid NSAIDS. Assessment & Plan (10/05/2023 5:50 AM CDT): Continue current regimen.Limit nephrotoxins.Reviewed creatinine. Avoid NSAIDS. Assessment & Plan (03/08/2023 7:12 AM SOFTWARE DEVELOPER INTERN): Continue current regimen.Limit nephrotoxins.Reviewed creatinine. Avoid NSAIDS. CKD (chronic kidney disease) 03/08/2022 Assessment & Plan (06/08/2024 4:45 AM SOFTWARE DEVELOPER INTERN): Limit nephrotoxins. Monitor creatinine. Avoid NSAIDS.Follow with Nephrology. Anemia in stage 3b chronic kidney disease 2021 Gastroesophageal reflux disease 04/08/2021 Assessment & Plan (03/08/2023 11:17 AM SOFTWARE DEVELOPER INTERN): Reviewed dietary modifications. Continue PPI. Assessment & Plan (08/18/2022 6:36 AM CDT): Reviewed dietary modifications. Continue PPI. Assessment & Plan (02/12/2022 6:03 AM CDT): Reviewed dietary modifications. Continue PPI. Assessment & Plan (04/08/2021 5:55 AM SOFTWARE DEVELOPER INTERN): Reviewed dietary modifications. Continue PPI. 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 Continue home PT exercises. Advised using a walker. Assessment & Plan (08/18/2022 11:47 AM CDT): Continue oxycodone. Continue home PT exercises. Advised using a walker. Assessment & Plan (02/12/2022 11:41 AM CDT): Continue oxycodone. Continue home PT exercises. A prescription for a walker. Assessment & Plan (04/08/2021 5:55 AM SOFTWARE DEVELOPER INTERN): Continue oxycodone. Continue home PT exercises. Continue walker. Assessment & Plan (12/26/2020 10:48 AM CDT): Continue oxycodone. Script for walker. Assessment & Plan (09/26/2020 11:29 AM CDT): Continue ROM exercises and follow with Pain Management. Refill oxycodone as needed. Prostate cancer 09/06/2018 Assessment & Plan (06/08/2024 4:46 AM SOFTWARE DEVELOPER INTERN): Follow with Oncology. Continue Zytiga. Assessment & [...] 01/25/2018 Assessment & Plan (03/07/2018 6:54 AM SOFTWARE DEVELOPER INTERN): Hypertension is controlled. Continue current regimen. CHF [...] creatinine. Assessment & Plan (04/08/2021 5:54 AM SOFTWARE DEVELOPER INTERN): Hypertension is controlled. Continue current regimen.Limit nephrotoxins. [...] NSAIDS. Assessment & Plan (03/07/2018 6:55 AM SOFTWARE DEVELOPER INTERN): Hypertension is controlled. Continue current regimen. Limit nephrotoxins. Monitor creatinine. Avoid NSAIDS. Assessment & Plan (11/25/2017 7:09 AM CDT): Limit nephrotoxins. Monitor creatinine. Avoid NSAIDS. Duodenal ulcer 11/25/2017 Assessment & Plan (11/25/2017 10:16 AM CDT): Reviewed GI note . Continue pantoprazole. Avoid NSAIDS. Refer for EGD. PAF (paroxysmal atrial fibrillation) 10/22/2017 Assessment & Plan (03/07/2018 6:54 AM SOFTWARE DEVELOPER INTERN): Continue rate control. Continue anticoagualtion. Anticipate starting [...] NSAIDS. Assessment & Plan (03/07/2018 6:55 AM SOFTWARE DEVELOPER INTERN): Limit nephrotoxins. Monitor creatinine. Avoid NSAIDS. Assessment [...] diet. Assessment & Plan (04/08/2021 10:17 AM SOFTWARE DEVELOPER INTERN): Reviewed HgBA1C elevated at 10.6 on 04/01/21. [...] therapy. Assessment & Plan (03/07/2018 6:57 AM SOFTWARE DEVELOPER INTERN): Continue pravastatin. He had myalgias on other [...] diet. Assessment & Plan (03/02/2017 6:53 AM SOFTWARE DEVELOPER INTERN): Hypertension is controlled. Continue current regimen. Reviewed low sodium diet. Assessment & Plan (01/15/2017 6:44 AM CDT): Reviewed proper diet. Continue statin therapy. Hyperlipidemia 01/12/2012 Assessment & Plan (06/08/2024 4:46 AM SOFTWARE DEVELOPER INTERN): Continue pravastatin. Order lipid panel at next [...] 05/28/2023 Assessment & Plan (03/08/2023 11:40 AM SOFTWARE DEVELOPER INTERN): Agree with cataract surgery. He has 1st [...] 08/30/2017 Assessment & Plan (03/02/2017 10:48 AM SOFTWARE DEVELOPER INTERN): Mood is improved. Monitor off medication. Impotence [...] 200. Assessment & Plan (03/07/2018 6:56 AM SOFTWARE DEVELOPER INTERN): Continue current regimen. Advised annual eye exam.Limit nephrotoxins. Monitor creatinine. Avoid NSAIDS. Assessment & Plan (11/25/2017 10:16 AM CDT): Continue current regimen and add Januvia.Advised annual eye exam. Limit nephrotoxins. Monitor creatinine. Avoid NSAIDS. Assessment & Plan (01/15/2017 6:44 AM CDT): Continue current regimen. Advised annual eye exam. Reviewed proper diet. Continue statin therapy. Encounters Date Type Department Care Team Description 08/25/[address] [phone] Kraig Ching MD ZAK Questions 08/24/[address] [phone] Kraig Ching MD Medical Question/Miscellaneous 08/21/[address] [address] Kraig Ching MD Additional Services Or Orders 08/21/20[address] [employer] [address] [address] Kraig Ching MD Medical Question/Miscellaneous 07/31/2024 Orders Only [facility] Health Information Management [address] [place] [address] Scanning, Provider 07/24/2024 Telephone [facility] Oncology [facility] Floor [address] [place] [address] Gautam Cope MD 07/22/2024 Orders Only [facility] Health Information Management [address] [place] [address] Scanning, Provider 07/21/2024 Results Follow-Up [facility] at [address] [address] Fadi Corrales NP Urine culture Urine, clean voided 07/19/2024 7:45 PM CDT - 07/19/2024 11:59 PM CDT Hospital Encounter [address] [address] Urinary frequency Discharge Disposition: Discharge to home or self care 07/19/2024 2:00 PM CDT Office Visit [facility] at [address] [address] Clau Childers PA Urinary frequency (Primary Dx); Leukocytosis, unspecified type 07/18/2024 1:45 PM CDT Infusion [facility] - Infusion [address] [facility] Floor [address] [place] [address] Prostate cancer (HCC) (Primary Dx) 07/18/2024 1:00 PM CDT Office Visit [facility] Oncology [facility] Floor [address] [place] [phone] Gautam Cope MD Prostate cancer (HCC) (Primary Dx) 07/18/2024 12:00 PM CDT Lab [facility] - Lab Collection [address] [facility] Floor [address] [place] [address] Prostate cancer (HCC) 07/18/2024 Patient Self-Triage [facility] [address] [place] [address] Mychart, Generic Provider 07/01/2024 Orders Only [facility] Health Information Management [address] [place] [address] Scanning, Provider 06/14/2024 6:15 PM SOFTWARE DEVELOPER INTERN Lab [facility] ([facility]) [address] [place] [phone] GABRIELA (acute kidney injury) 06/14/2024 3:00 PM SOFTWARE DEVELOPER INTERN Office Visit [facility] Nephrology [address] [facility] 5th [place] [address] [place] [address] Lin Guerrero MD Chronic kidney disease, stage 3b (HCC) (Primary Dx); GABRIELA (acute kidney injury); Hypertension, essential; Secondary hyperparathyroidism of renal origin 06/08/2024 12:00 PM SOFTWARE DEVELOPER INTERN Lab [facility] ([facility]) [address] [place] [phone] Anemia in stage 3b chronic kidney disease (HCC); Hypertension, essential; Secondary hyperparathyroidism of renal origin; Stage 3 chronic kidney disease, unspecified whether stage 3a or 3b CKD (HCC); Primary hypertension; Vitamin D deficiency; Type 2 diabetes mellitus with stage 3a chronic kidney disease, with long-term current use of insulin (HCC); Fatigue, unspecified type; GABRIELA (acute kidney injury) 06/08/2024 9:45 AM SOFTWARE DEVELOPER INTERN Office Visit [facility] [address] [facility] [address] [place] [address] Kraig Ching MD Hypertension, essential (Primary Dx); Prostate cancer (HCC); Type 2 diabetes mellitus with stage 3b chronic kidney disease, with long-term current use of insulin (HCC); Stage 3b chronic kidney disease (HCC); Hyperlipidemia, unspecified hyperlipidemia type from Last 3 Months Immunizations Immunization Administration Dates Next Due Influenza, Quad, Adjuvantate d, Intramuscular 02/22/2021 Influenza, Quadrivalent, Amelia l Culture-based MDCK, Preservative Free, Antibiotic Free, Intramuscular 02/06/2020 Influenza, Quadrivalent, Hig h Dose, Preservative Free, Intrr 12/21/2022,02/12/2022 Influenza, Quadrivalent, Spl it, Preservative Free, Intramuscular 01/14/2015 Influenza, Trivalent, High D ose, Split, Preservative Free, Intramuscular 01/17/2019 Influenza, Unspecified 01/17/2019(Deferred: Daisy ent Refused) [employer] ([employer]) SARS-CoV-2 Vaccination 06/14/2020, 06/14/2020 [employer] SARS-CoV-2 Monovalent Vaccination (12+ Yrs) PURPLE 03/05/2021,02/22/2021 [...] pur e alcohol) Occasional glass of wine. [facility] Utilities Answer Date Recorded In the past 12 months has [employer] gas, oil, or water company threatened to [...] often do you attend chur ch or mu-ism services? Never 04/04/2024 Do you belong to any clubs o r organizations such as evangelical groups, unions, fraternal or athletic groups, or [...] in the past 12 m [facility], were you homeless or living in a penitentiary (including now)? No 04/04/2024 Personal Safety Answer Date Recorded Have you ever been in or are you currently in a harmful physical or emotional relationship or is someone making you feel afraid or unsafe? Denies 06/09/2023 Sex and Gender Information Value Date Recorded Sex Assigned at Not on file Legal Sex Male 4:46 PM SOFTWARE DEVELOPER INTERN Gender Identity Not on file Sexual [...] cm (5' 9 ) 06/14/2024 2:58 PM SOFTWARE DEVELOPER INTERN Body Mass Index 29.98 06/14/2024 2:58 PM SOFTWARE DEVELOPER INTERN Plan of Treatment Health Maintenance Due Date [...] ACO Care Management On track(2023 1:22 PM SOFTWARE DEVELOPER INTERN) No Gain, Clarissa Castellanos RN Note: Problem: Lack of [facility] [...] providers ACO Care Management Improving( 1:22 PM SOFTWARE DEVELOPER INTERN) No Clarissa Luna RN Note: Problem: Potential [...] medication regimen. Medical Devices Implanted Type Area Clay Roaster Device Identifier Shelf Expiration Date Model / Serial / Lot [employer] Lens Iol Cna0t0.195 [employer]onom Cna0t0.195 - [id number] - [id number] Implanted:Qty: 1 on 06/09/2023 by Higinio Connolly MD at [facility] Lens Right: Eye [employer] [id number] 10/27/2025 CNA0T0.19 5 / [id number] / [employer] Lens Iol Cna0t0.200 [employer] [facility] Autonom Cna0t0.200 - [id number] - [id number] Implanted:Qty: 1 on 05/19/2023 by Higinio Connolly MD at [facility] Left: Eye [employer] [id number] 10/06/2025 CNA0T0.20 0 / [id number] / Procedures Procedure Name Priority Date/Time Associated Diagnosis Comments SCAN - RADIOLOGY/IMAGING 07/31/2024 4:25 PM CDT SCAN - RADIOLOGY/IMAGING 07/31/2024 8:32 AM CDT SCAN - RADIOLOGY/IMAGING 07/22/2024 9:11 AM CDT [...] AM CDT EGFR Routine 06/14/2024 3:48 PM SOFTWARE DEVELOPER INTERN GABRIELA (acute kidney injury) RENAL FUNCTION PANEL Routine 06/14/2024 3:48 PM SOFTWARE DEVELOPER INTERN GABRIELA (acute kidney injury) URINALYSIS AND REFLEX TO MICROSCOPIC Routine 06/08/2024 10:47 AM SOFTWARE DEVELOPER INTERN Anemia in stage 3b chronic kidney disease (HCC) Hypertension, essential Secondary hyperparathyroidism of renal origin Stage 3 chronic kidney disease, unspecified whether stage 3a or 3b CKD (HCC) Primary hypertension Vitamin D deficiency Type 2 diabetes mellitus with stage 3a chronic kidney disease, with long-term current use of insulin (HCC) Fatigue, unspecified type GABRIELA (acute kidney injury) EGFR Routine 06/08/2024 10:44 AM SOFTWARE DEVELOPER INTERN Anemia in stage 3b chronic kidney disease (HCC) Hypertension, essential Secondary hyperparathyroidism of renal origin Stage 3 chronic kidney disease, unspecified whether stage 3a or 3b CKD (HCC) Primary hypertension Vitamin D deficiency Type 2 diabetes mellitus with stage 3a chronic kidney disease, with long-term current use of insulin (HCC) Fatigue, unspecified type GABRIELA (acute kidney injury) DIFFERENTIAL AUTO Routine 06/08/2024 10:44 AM SOFTWARE DEVELOPER INTERN Anemia in stage 3b chronic kidney disease [...] RENAL FUNCTION PANEL Routine 06/08/2024 10:44 AM SOFTWARE DEVELOPER INTERN Anemia in stage 3b chronic kidney disease [...] D 25 HYDROXY Routine 06/08/2024 10:44 AM SOFTWARE DEVELOPER INTERN Anemia in stage 3b chronic kidney disease [...] WITH AUTO DIFFERENTIAL Routine 06/08/2024 10:44 AM SOFTWARE DEVELOPER INTERN Anemia in stage 3b chronic kidney disease (HCC) Hypertension, essential Secondary hyperparathyroidism of renal origin Stage 3 chronic kidney disease, unspecified whether stage 3a or 3b CKD (HCC) Primary hypertension Vitamin D deficiency Type 2 diabetes mellitus with stage 3a chronic kidney disease, with long-term current use of insulin (HCC) Fatigue, unspecified type GABRIELA (acute kidney injury) PTH Routine 06/08/2024 10:44 AM SOFTWARE DEVELOPER INTERN Anemia in stage 3b chronic kidney disease [...] RATIO, URINE, RANDOM Routine 06/08/2024 10:44 AM SOFTWARE DEVELOPER INTERN Anemia in stage 3b chronic kidney disease (HCC) Hypertension, essential Secondary hyperparathyroidism of renal origin Stage 3 chronic kidney disease, unspecified whether stage 3a or 3b CKD (HCC) Primary hypertension Vitamin D deficiency Type 2 diabetes mellitus with stage 3a chronic kidney disease, with long-term current use of insulin (HCC) Fatigue, unspecified type GABRIELA (acute kidney injury) LIPID PANEL Routine 03/08/2023 11:55 AM SOFTWARE DEVELOPER INTERN Hyperlipidemia, unspecified hyperlipidemia type ALBUMIN CREATININE RATIO, URINE Routine 01/01/2023 10:40 AM CDT Type 2 diabetes mellitus with stage 3a chronic kidney disease, with long-term current use of insulin (HCC) DIABETES EYE EXAM Routine 06/29/2018 from Last 3 Months or Most Recently Relevant to Health Maintenance Results * SCAN - RADIOLOGY/IMAGING (07/31/2024 4:25 PM CDT) Anatomical Region Laterality Modality Other us Provider Scanning Final Result * SCAN - RADIOLOGY/IMAGING (07/31/2024 8:32 AM CDT) Anatomical Region Laterality Modality Other us Provider Scanning Final Result * SCAN - RADIOLOGY/IMAGING (07/22/2024 9:11 AM [...] Large Ketones, ur, POC Negative Negative Specific [place], POC 1.015 1.003 - 1.030 Blood, ur, POC Hemolyzed, trace(A) Negative pH, ur, POC 6.0 5.0 - 8.0 Protein, ur, POC 30.(A) Negative Urobilinogen, urine, POC 0.2 0.2 - 1.0 mg/dL Nitrite, ur, POC Negative Negative Leukocytes, ur, POC Negative Negative Lot Number [id number] Urine 07/19/2024 2:16 PM CDT Clau ESQU[facility] POINT OF CARE TEST ORDER ALAN Final Result * Urine culture Urine, clean voided (07/19/2024 12:00 PM CDT) Report Final Report: No growth Comment:Testing performed by : [facility], [address] [place]., [address] Urine, clean voided 07/19/2024 12:00 PM CDT 07/20/2024 2:19 AM CDT Narrative MERLINE Conrad 07/21/2024 7:38 AM CDT Testing performed by [facility] ([phone]) Clau ESQU[facility] LAB MICROBIOLOGY - GENER AL ORDERABLES Final Result MERLINE [address] Department [place] [address] * (ABNORMAL) eGFR (07/18/2024 12:07 PM CDT) [...] Resul t [facility] Department [place] [address] * (ABNORMAL) Differential, auto (07/18/2024 12:07 PM CDT) Neutrophil abs 17.55(H) 1.50 - 6.50 K/cumm Comment:Testing performed by : [facility], [address] [place] [address] Lymphocyte abs 0.96 0.80 - 3.30 K/cumm [facility] Comment:Testing performed by : [facility], [address] [place], [place] [phone] Monocyte abs 1.48(H) 0.20 - 0.80 K/cumm [facility] Comment:Testing performed by : [facility], [address] [place], [place] [phone] Eosinophil abs 0.06 0.00 - 0.50 K/cumm [facility] Comment:Testing performed by : [facility], [address] [place] [phone] Basophil abs 0.03 0.00 - 0.10 K/cumm [facility] Comment:Testing performed by : [facility], [address] [place] [phone] Neutrophil pct 87.4 % [facility] Comment: Interpretive Data Percent cell count reference ranges are not reported, since discordance with absolute values may lead to misinterpretation of CBC data. Current Interpretive Data was last revised on 2017. Testing performed by: [facility], [address] [place] [phone] Lymphocyte pct 4.8 % [facility] Comment: Interpretive Data Percent cell count reference ranges are not reported, since discordance with absolute values may lead to misinterpretation of CBC data. Current Interpretive Data was last revised on 2017. Testing performed by: [facility], [address] [place] [phone] Monocyte pct 7.4 % MERLINE [facility] Comment: Interpretive Data Percent cell count reference ranges are not reported, since discordance with absolute values may lead to misinterpretation of CBC data. Current Interpretive Data was last revised on 2017. Testing performed by: [facility], [address] [place] [phone] Eosinophil pct 0.3 % MERLINE [facility] Comment: Interpretive Data Percent cell count reference ranges are not reported, since discordance with absolute values may lead to misinterpretation of CBC data. Current Interpretive Data was last revised on 2017. Testing performed by: [facility], [address] [place] [phone] Basophil pct 0.2 % MERLINE [facility] Comment: Interpretive Data Percent cell count reference ranges are not reported, since discordance with absolute values may lead to misinterpretation of CBC data. Current Interpretive Data was last revised on 2017. Testing performed by: [facility], [address] [place] [phone] Blood 07/18/2024 12:0 7 PM CDT 07/18/2024 12:22 PM CDT us Gautam Cope MD LAB BLOOD ORDERABLES Final Resul t MERLINE [facility] Department [place] [address] * (ABNORMAL) CBC with auto differential (07/18/2024 12:07 PM CDT) WBC 20.09(H) 3.80 - 9.90 K/cumm Comment:Testing performed by : [facility], [address] [place] [phone] Hgb 12.1(L) 13.0 - 17.5 g/dL MERLINE PER[facility] Comment:Testing performed by : [facility], [address] [place], [place] [phone] Hct 38.2(L) 38.9 - 50.3 % [facility] Comment:Testing performed by : [facility], [address] [place] [address] Plt 451(H) 150 - 400 K/cumm [facility] Comment:Testing performed by : [facility], [address] [place], [place] [phone] MPV 7.7 6.8 - 10.4 fL [facility] Comment:Testing performed by : [facility], [address] [place], [place] [phone] RBC 4.46 4.30 - 5.80 M/cumm [facility] Comment:Testing performed by : [facility], [address] [place], [place] [phone] MCV 85.5 81.3 - 96.4 fL [facility] Comment:Testing performed by : [facility], [address] [place], [place] [id number] MCH 27.1 27.1 - 33.3 pg CERNER BJ Comment:Testing performed by : [facility], [address] [place] [address] MCHC 31.7(L) 32.3 - 35.7 g/dL CERNER BJ Comment:Testing performed by : [facility], [address] [place] [address] RDW CV 14.9 11.1 - 14.9 % CERNER BJ Comment:Testing performed by : [facility], [address] [place] [address] NRBC abs 0.00 0.00 - 0.01 K/cumm CERNER BJ Comment:Testing performed by : [facility], [address] [place] [address] Blood 07/18/2024 12:0 7 PM CDT 07/18/2024 12:22 PM CDT us Gautam Cope MD LAB BLOOD ORDERABLES Final Resul t Performing Organization Address [facility] Co de Phone Number [facility] [place] [address] * PSA diagnostic (07/18/2024 12:07 PM CDT) [...] Final Resul t Performing Organization Address [facility] Co de Phone Number [facility] [place] [address] * Lactate dehydrogenase (LD) (07/18/2024 12:07 PM CDT) Lactate dehydrogenase (LDH) 216 100 - 250 Units/L Blood 07/18/2024 12:0 7 PM CDT 07/18/2024 12:25 PM CDT Gautam Cope MD LAB BLOOD ORDERABLES Final Resul t Performing Organization Address [facility] Co de Phone Number [facility] [place] [address] * (ABNORMAL) Hemoglobin A1c (07/18/2024 12:07 PM CDT) Hgb A1C 8.0(H) 4.0 - 5.6 % Estimated Average Glucose 183 mg/dL [facility] Comment: The ADA recommends [...] Resul t [facility] Department [place] [address] * (ABNORMAL) Comprehensive metabolic panel (07/18/2024 12:07 PM CDT) Sodium 142 135 - 145 mmol/L Potassium, pl 4.6 3.3 - 4.9 mmol/L [facility] Chloride 106 97 - 110 mmol/L [facility] CO2 24 22 - 32 mmol/L [facility] Anion gap 12 2 - 15 mmol/L [facility] BUN 52(H) 6 - 25 mg/dL [facility] Creatinine 2.66(H) 0.80 - 1.30 mg/dL [facility] Glucose 164 70 - 199 mg/dL [facility] Comment: Interpretive Data Fasting [...] Calcium 9.0 8.5 - 10.3 mg/dL [facility] Bilirubin, total 0.5 0.1 - 1.2 mg/dL [facility] Protein, pl 6.7 6.5 - 8.5 g/dL [facility] Albumin 4.0 3.5 - 5.0 g/dL [facility] Alk phos 126 40 - 130 Units/L CERNER BJ ALT 10 7 - 55 Units/L [facility] AST 13 10 - 50 Units/L [facility] Blood 07/18/2024 12:0 7 PM CDT 07/18/2024 12:25 PM CDT Gautam Cope MD LAB BLOOD ORDERABLES Final Resul t [facility] Department [place] [address] * SCAN - RADIOLOGY/IMAGING (07/01/2024 9:44 AM CDT) Anatomical Region Laterality Modality Other us Provider Scanning Final Result * (ABNORMAL) eGFR (06/14/2024 3:48 PM SOFTWARE DEVELOPER INTERN) eGFR 26(L) >=60 mL/min/1. 73 m2 Comment: [...] last reviewed 2021. Blood 06/14/2024 3:48 PM SOFTWARE DEVELOPER INTERN 06/14/2024 4:07 PM SOFTWARE DEVELOPER INTERN Lin Guerrero MD LAB BLOOD ORDERABLES Final Resul t Performing Organization Address City/[facility]/ZIP Co de Phone Number [facility] Department [place] [address] * (ABNORMAL) Renal function panel (06/14/2024 3:48 PM SOFTWARE DEVELOPER INTERN) Sodium 143 135 - 145 mmol/L Potassium, pl 5.0(H) 3.3 - 4.9 mmol/L [facility] Chloride 105 97 - 110 mmol/L [facility] CO2 28 22 - 32 mmol/L [facility] Anion gap 10 2 - 15 mmol/L [facility] BUN 48(H) 6 - 25 mg/dL [facility] Creatinine 2.42(H) 0.80 - 1.30 mg/dL [facility] Glucose 152 70 - 199 mg/dL [facility] Comment: Interpretive Data Fasting [...] Calcium 8.7 8.5 - 10.3 mg/dL [facility] Phosphorus, pl 3.1 2.3 - 4.5 mg/dL [facility] Albumin 3.9 3.5 - 5.0 g/dL [facility] Blood 06/14/2024 3:48 PM SOFTWARE DEVELOPER INTERN 06/14/2024 4:03 PM SOFTWARE DEVELOPER INTERN Lin Guerrero MD LAB BLOOD ORDERABLES Final Resul t Performing Organization Address [facility]/ZIP Co de Phone Number [facility] Department [place] [address] * Urinalysis reflex to microscopic (06/08/2024 10:47 AM SOFTWARE DEVELOPER INTERN) Color, ur Straw Yellow Clarity, ur Clear Clear [facility] Specific gravity, ur 1.012 1.003 - 1.030 [facility] pH, urine 6.0 [facility] Comment: Interpretive Data U rine pH is affected by diet, medications, systemic acid-base disturbances, and renal tubular function. pH may affect urinary stone formation. For example, urine pH below 6.0 may help reduce the tendency for calcium phosphate stones and pH greater than 6.0 may reduce the tendency for uric acid stone formation. Source: [facility] [employer]book Current Interpretive Data was last revised on 2017 Protein, ur ql Trace Negative [facility] Glucose, ur ql Negative Negative [facility] Ketones, ur Negative Negative [facility] Bilirubin, ur Negative Negative [facility] Blood, ur Negative Negative [facility] Urobilinogen, ur <2.0 <2.0 mg/dL [facility] Nitrite, ur Negative Negative [facility] Leukocyte esterase, ur Negative Negative [facility] UA reflex comment Reflex conditions for microscopic UA not met. [facility] Urine 06/08/2024 10:4 7 AM SOFTWARE DEVELOPER INTERN 06/08/2024 11:41 AM SOFTWARE DEVELOPER INTERN us Lin Guerrero MD LAB URINE ORDERABLES Final Resul t [facility] Department [place] [address] * (ABNORMAL) eGFR (06/08/2024 10:44 AM SOFTWARE DEVELOPER INTERN) eGFR 22(L) >=60 mL/min/1. 73 m2 Comment: [...] reviewed 2021. Blood 06/08/2024 10:4 4 AM SOFTWARE DEVELOPER INTERN 06/08/2024 11:23 AM SOFTWARE DEVELOPER INTERN us Lin Guerrero MD LAB BLOOD ORDERABLES Final Resul t [facility] Department [place] [address] * (ABNORMAL) Differential, auto (06/08/2024 10:44 AM SOFTWARE DEVELOPER INTERN) Neutrophil abs 7.8(H) 1.5 - 6.5 K/cumm Imm gran abs 0.1 0.0 - 0.1 K/cumm [facility] Lymphocyte abs 1.9 0.8 - 3.3 K/cumm [facility] Monocyte abs 1.0(H) 0.2 - 0.8 K/cumm [facility] Eosinophil abs 0.1 0.0 - 0.5 K/cumm [facility] Basophil abs 0.0 0.0 - 0.1 K/cumm [facility] Neutrophil pct 71.1 % [facility] Comment: Interpretive Data Percent cell count reference ranges are not reported, since discordance with absolute values may lead to misinterpretation of CBC data. Current Interpretive Data was last revised on 2017. Imm gran pct 0.8 % [facility] Comment: Interpretive Data Percent cell count reference ranges are not reported, since discordance with absolute values may lead to misinterpretation of CBC data. Current Interpretive Data was last revised on 2017. Lymphocyte pct 17.1 % [facility] Comment: Interpretive Data Percent cell count reference ranges are not reported, since discordance with absolute values may lead to misinterpretation of CBC data. Current Interpretive Data was last revised on 2017. Monocyte pct 9.3 % [facility] Comment: Interpretive Data Percent cell count reference ranges are not reported, since discordance with absolute values may lead to misinterpretation of CBC data. Current Interpretive Data was last revised on 2017. Eosinophil pct 1.3 % [facility] Comment: Interpretive Data Percent cell count reference ranges are not reported, since discordance with absolute values may lead to misinterpretation of CBC data. Current Interpretive Data was last revised on 2017. Basophil pct 0.4 % [facility] Comment: Interpretive Data Percent cell count reference ranges are not reported, since discordance with absolute values may lead to misinterpretation of CBC data. Current Interpretive Data was last revised on 2017. Blood 06/08/2024 10:4 4 AM SOFTWARE DEVELOPER INTERN 06/08/2024 11:23 AM SOFTWARE DEVELOPER INTERN us Lin Guerrero MD LAB BLOOD ORDERABLES Final Resul t [facility] Department [place] [address] * (ABNORMAL) CBC with auto differential (06/08/2024 10:44 AM SOFTWARE DEVELOPER INTERN) WBC 11.0(H) 3.8 - 9.9 K/cumm Hgb 12.0(L) 13.0 - 17.5 g/dL [facility] Hct 36.9(L) 38.9 - 50.3 % [facility] Plt 357 150 - 400 K/cumm [facility] MPV 9.8 9.1 - 12.3 fL [facility] RBC 4.27(L) 4.30 - 5.80 M/cumm [facility] MCV 86.4 81.3 - 96.4 fL [facility] MCH 28.1 27.1 - 33.3 pg [facility] MCHC 32.5 32.3 - 35.7 g/dL [facility] RDW CV 14.1 11.1 - 14.9 % [facility] RDW SD 44.2 35.7 - 48.1 fL [facility] NRBC abs 0.00 0.00 - 0.01 K/cumm [facility] Blood 06/08/2024 10:4 4 AM SOFTWARE DEVELOPER INTERN 06/08/2024 11:23 AM SOFTWARE DEVELOPER INTERN us Lin Guerrero MD LAB BLOOD ORDERABLES Final Resul t Performing Organization Address [facility] de Phone Number [facility] [place] [address] * (ABNORMAL) Protein / creatinine ratio, urine, random (06/08/2024 10:44 AM SOFTWARE DEVELOPER INTERN) Protein, ur, quant 21.3 mg/dL Comment: Interpretive Data No reference range established. Current interpretive data was last revised 2018. Creatinine Ur 52.2 mg/dL [facility] Comment: Interpretive Data No reference range established. Current interpretive data was last revised 2018. Protein/creatinin e ratio 408.0(H) 0.0 - 180.0 mg/g CR [facility] Urine 06/08/2024 10:4 4 AM SOFTWARE DEVELOPER INTERN 06/08/2024 11:23 AM SOFTWARE DEVELOPER INTERN us Lin Guerrero MD LAB URINE ORDERABLES Final Resul t Performing Organization Address [facility] de Phone Number [facility] Department [place] [address] * Vitamin D 25 hydroxy (06/08/2024 10:44 AM SOFTWARE DEVELOPER INTERN) Vitamin D 25-OH 42 30 - 80 ng/mL Blood 06/08/2024 10:4 4 AM SOFTWARE DEVELOPER INTERN 06/08/2024 11:23 AM SOFTWARE DEVELOPER INTERN Lin Guerrero MD LAB BLOOD ORDERABLES Final Resul t Performing Organization Address [facility] de Phone Number [facility] Department [place] [address] * (ABNORMAL) PTH (06/08/2024 10:44 AM SOFTWARE DEVELOPER INTERN) PTH 78(H) 15 - 65 pg/mL Blood 06/08/2024 10:4 4 AM SOFTWARE DEVELOPER INTERN 06/08/2024 11:23 AM SOFTWARE DEVELOPER INTERN Lin Guerrero MD LAB BLOOD ORDERABLES Final Resul t [facility] Department [place] [address] * (ABNORMAL) Renal function panel (06/08/2024 10:44 AM SOFTWARE DEVELOPER INTERN) Sodium 142 135 - 145 mmol/L Potassium, pl 4.8 3.3 - 4.9 mmol/L [facility] Chloride 107 97 - 110 mmol/L [facility] CO2 27 22 - 32 mmol/L [facility] Anion gap 8 2 - 15 mmol/L [facility] BUN 60(H) 6 - 25 mg/dL [facility] Creatinine 2.72(H) 0.80 - 1.30 mg/dL [facility] Glucose 94 70 - 199 mg/dL [facility] Comment: Interpretive Data Fasting [...] Calcium 9.0 8.5 - 10.3 mg/dL [facility] Phosphorus, pl 3.5 2.3 - 4.5 mg/dL [facility] Albumin 3.8 3.5 - 5.0 g/dL [facility] Blood 06/08/2024 10:4 4 AM SOFTWARE DEVELOPER INTERN 06/08/2024 11:23 AM SOFTWARE DEVELOPER INTERN us Lin Guerrero MD LAB BLOOD ORDERABLES Final Resul t [facility] Department [place] [address] * (ABNORMAL) Lipid panel (03/08/2023 11:55 AM SOFTWARE DEVELOPER INTERN) Cholesterol 193 30 - 199 mg/dL [facility] Comment: Interpretive Data Ages < or [...] revised on 2017. Triglycerides 250(H) <=149 mg/dL [facility] Comment: Interpretive Data Ages < or [...] on 2017. HDL 36(L) >=40 mg/dL [facility] Comment: Interpretive Data Ages < or [...] [facility] Blood 03/08/2023 11:5 5 AM SOFTWARE DEVELOPER INTERN 03/08/2023 3:48 PM SOFTWARE DEVELOPER INTERN us Kraig Ching MD LAB BLOOD ORDERABLES Final Re sult [facility] [place] [address] * (ABNORMAL) Albumin Creatinine Ratio, Urine (01/01/2023 10:40 AM CDT) Albumin Ur 227.3 mg/L [facility] Comment: Interpretive Data No reference range established. Current interpretive data was last revised 2018. Creatinine Ur 66.5 mg/dL [facility] Comment: Interpretive Data No reference range established. Current interpretive data was last revised 2018. Albumin Creatinine Ratio, Ur 342(H) 1 - 29 mg/g [facility] Urine 01/01/2023 10:4 0 AM CDT 01/01/2023 10:45 AM CDT Kraig Ching MD LAB URINE ORDERABLES Final Re sult [facility] Department [place] [address] * DIABETES EYE EXAM (06/29/2018) Diabetic Eye Exam Normal Historical Provider HEALTH MAINTENANCE Final Result from Last 3 Months or Most Recently Relevant to Health Maintenance Insurance [employer] MEDICARE [facility] MEDICARE A[employer] MEDICARE A[employer] MEDICARE Advance Directives For more information, please contact: [phone] * Full Code (Latest Code Status on File) Date Activated Date Inactivated Comments 12/16/2017 2:44 PM 12/16/2017 7:18 PM Care Teams 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 Relationship Specialty Start Date End Date Kraig Ching MD [address] [facility] [address] [place] [address] PCP - General 07/10/16 Gautam Cope MD [address] [place] [address] Medical Oncologist/Baseball Hand Sewer Medical Oncology 08/18/18 Tramaine Roe MD [address] [facility] [address] [place] [address] Referring Physician Urology 08/18/18 Sukhwinder Uribe MD [address] [facility] [address] [place] [address] Consulting Physician Urology 08/18/18 Shay Guillermo MD [address] [facility] [address] [place] [address] Referring Physician Urology 08/18/18 Marsha Landis, RN Registered Nurse 11/17/18
--- OUTSIDE RECORDS SUMMARY | 2024-08-27 17:39 | XMS_ITS | Referral Summary ---
Author Organization [facility] Address [address] [place] [address] Care Team Providers Care Education Consultant Name Role Phone Kraig Ching MD Primary Care Provider [phone] Gautam Cope MD Unavailable Tramaine Roe MD Unavailable [phone] Sukhwinder Uribe MD Unavailable Shay Guillermo MD Unavailable [phone] Marsha Landis RN Unavailable Unavailab le Encounters Date Type Department Care Team Description 08/25/[address] [phone] Kraig Ching MD ZAK Questions 08/24/[address] [phone] Kraig Ching MD Medical Question/Miscellaneous 08/21/[address] [phone] Kraig Ching MD Additional Services Or Orders 08/21/[address] [phone] Kraig Ching MD Medical Question/Miscellaneous 07/31/2024 Orders Only [facility] Health Information Management [address] [place] [address] Scanning, Provider 07/24/2024 Telephone [facility] Oncology [facility] Floor [address] [place] [address] Gautam Cope MD 07/22/2024 Orders Only [facility] Health Information Management [address] [place] [address] Scanning, Provider 07/21/2024 Results Follow-Up [facility] Medical [facility] at [address] [phone] Fadi Corrales NP Urine culture Urine, clean voided 07/19/2024 7:45 PM CDT - 07/19/2024 11:59 PM CDT Hospital Encounter [address] [address] Urinary frequency Discharge Disposition: Discharge to home or self care 07/19/2024 2:00 PM CDT Office Visit [facility] Medical [facility] Con[facility]ient Care at [address] [address] Clau Childers PA Urinary frequency (Primary Dx); Leukocytosis, unspecified type 07/18/2024 Patient Self-Triage [facility] [address] [place] [address] Mychart, Generic Provider 07/18/2024 1:00 PM CDT Office Visit [facility] Oncology [facility] Floor [address] [place] [address] Gautam Cope MD Prostate cancer (HCC) (Primary Dx) 07/18/2024 12:00 PM CDT Lab [facility] - Lab Collection [address] [facility] Floor [address] [place] [address] Prostate cancer (HCC) 07/18/2024 1:45 PM CDT Infusion [facility] - Infusion [address] [facility] Floor [address] [place] [address] Prostate cancer (HCC) (Primary Dx) 07/01/2024 Orders Only [facility] Health Information Management [address] [place] [address] Scanning, Provider 06/14/2024 6:15 PM AIRPLANE AND ENGINE INSPECTOR Lab [facility] ([facility]) [address] [place] [address] GABRIELA (acute kidney injury) 06/14/2024 3:00 PM AIRPLANE AND ENGINE INSPECTOR Office Visit [facility] Nephrology [address] [facility] Advanced [facility] 5th [place] [address] [place] [address] Lin Guerrero MD Chronic kidney disease, stage 3b (HCC) (Primary Dx); GABRIELA (acute kidney injury); Hypertension, essential; Secondary hyperparathyroidism of renal origin 06/08/2024 12:00 PM AIRPLANE AND ENGINE INSPECTOR Lab [facility] Advanced [facility] ([facility]) [address] [place] [address] Anemia in stage 3b chronic kidney disease (HCC); Hypertension, essential; Secondary hyperparathyroidism of renal origin; Stage 3 chronic kidney disease, unspecified whether stage 3a or 3b CKD (HCC); Primary hypertension; Vitamin D deficiency; Type 2 diabetes mellitus with stage 3a chronic kidney disease, with long-term current use of insulin (HCC); Fatigue, unspecified type; GABRIELA (acute kidney injury) 06/08/2024 9:45 AM AIRPLANE AND ENGINE INSPECTOR Office Visit [facility] [address] [facility] [address] [place] [address] Kraig Ching MD Hypertension, essential (Primary Dx); Prostate cancer (HCC); Type 2 diabetes mellitus with stage 3b chronic kidney disease, with long-term current use of insulin (HCC); Stage 3b chronic kidney disease (HCC); Hyperlipidemia, unspecified hyperlipidemia type from Last 3 Months Allergies Active Allergy [...] times a day with meals 60 tablet 4 10/05/19 25 Active lisinopriL (PRINIVIL,ZESTRI L) [...] 05/30/2024 Assessment & Plan (06/08/2024 4:46 AM AIRPLANE AND ENGINE INSPECTOR): Continue current regimen.Limit nephrotoxins.Reviewed creatinine. Avoid [...] 03/08/2023 Assessment & Plan (06/08/2024 4:46 AM AIRPLANE AND ENGINE INSPECTOR): Hypertension is controlled. Continue current regimen. Assessment & Plan (10/05/2023 12:54 PM CDT): Hypertension is controlled. Decrease carvedilol to 12.5 mg. Assessment & Plan (03/08/2023 7:11 AM AIRPLANE AND ENGINE INSPECTOR): Hypertension is controlled. Continue current regimen. 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 Avoid NSAIDS. Assessment & Plan (10/05/2023 5:50 AM CDT): Continue current regimen.Limit nephrotoxins.Reviewed creatinine. Avoid NSAIDS. Assessment & Plan (03/08/2023 7:12 AM AIRPLANE AND ENGINE INSPECTOR): Continue current regimen.Limit nephrotoxins.Reviewed creatinine. Avoid NSAIDS. CKD (chronic kidney disease) 03/08/2022 Assessment & Plan (06/08/2024 4:45 AM AIRPLANE AND ENGINE INSPECTOR): Limit nephrotoxins. Monitor creatinine. Avoid NSAIDS.Follow with Nephrology. Anemia in stage 3b chronic kidney disease 2021 Gastroesophageal reflux disease 04/08/2021 Assessment & Plan (03/08/2023 11:17 AM AIRPLANE AND ENGINE INSPECTOR): Reviewed dietary modifications. Continue PPI. Assessment & Plan (08/18/2022 6:36 AM CDT): Reviewed dietary modifications. Continue PPI. Assessment & Plan (02/12/2022 6:03 AM CDT): Reviewed dietary modifications. Continue PPI. Assessment & Plan (04/08/2021 5:55 AM AIRPLANE AND ENGINE INSPECTOR): Reviewed dietary modifications. Continue PPI. 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 Continue home PT exercises. Advised using a walker. Assessment & Plan (08/18/2022 11:47 AM CDT): Continue oxycodone. Continue home PT exercises. Advised using a walker. Assessment & Plan (02/12/2022 11:41 AM CDT): Continue oxycodone. Continue home PT exercises. A prescription for a walker. Assessment & Plan (04/08/2021 5:55 AM AIRPLANE AND ENGINE INSPECTOR): Continue oxycodone. Continue home PT exercises. Continue walker. Assessment & Plan (12/26/2020 10:48 AM CDT): Continue oxycodone. Script for walker. Assessment & Plan (09/26/2020 11:29 AM CDT): Continue ROM exercises and follow with Pain Management. Refill oxycodone as needed. Prostate cancer 09/06/2018 Assessment & Plan (06/08/2024 4:46 AM AIRPLANE AND ENGINE INSPECTOR): Follow with Oncology. Continue Zytiga. Assessment [...] 01/25/2018 Assessment & Plan (03/07/2018 6:54 AM AIRPLANE AND ENGINE INSPECTOR): Hypertension is controlled. Continue current regimen. [...] creatinine. Assessment & Plan (04/08/2021 5:54 AM AIRPLANE AND ENGINE INSPECTOR): Hypertension is controlled. Continue current regimen.Limit [...] NSAIDS. Assessment & Plan (03/07/2018 6:55 AM AIRPLANE AND ENGINE INSPECTOR): Hypertension is controlled. Continue current regimen. Limit nephrotoxins. Monitor creatinine. Avoid NSAIDS. Assessment & Plan (11/25/2017 7:09 AM CDT): Limit nephrotoxins. Monitor creatinine. Avoid NSAIDS. Duodenal ulcer 11/25/2017 Assessment & Plan (11/25/2017 10:16 AM CDT): Reviewed GI note . Continue pantoprazole. Avoid NSAIDS. Refer for EGD. PAF (paroxysmal atrial fibrillation) 10/22/2017 Assessment & Plan (03/07/2018 6:54 AM AIRPLANE AND ENGINE INSPECTOR): Continue rate control. Continue anticoagualtion. Anticipate [...] NSAIDS. Assessment & Plan (03/07/2018 6:55 AM AIRPLANE AND ENGINE INSPECTOR): Limit nephrotoxins. Monitor creatinine. Avoid NSAIDS. [...] diet. Assessment & Plan (04/08/2021 10:17 AM AIRPLANE AND ENGINE INSPECTOR): Reviewed HgBA1C elevated at 10.6 on [...] therapy. Assessment & Plan (03/07/2018 6:57 AM AIRPLANE AND ENGINE INSPECTOR): Continue pravastatin. He had myalgias on [...] diet. Assessment & Plan (03/02/2017 6:53 AM AIRPLANE AND ENGINE INSPECTOR): Hypertension is controlled. Continue current regimen. Reviewed low sodium diet. Assessment & Plan (01/15/2017 6:44 AM CDT): Reviewed proper diet. Continue statin therapy. Hyperlipidemia 01/12/2012 Assessment & Plan (06/08/2024 4:46 AM AIRPLANE AND ENGINE INSPECTOR): Continue pravastatin. Order lipid panel at [...] 05/28/2023 Assessment & Plan (03/08/2023 11:40 AM AIRPLANE AND ENGINE INSPECTOR): Agree with cataract surgery. He has [...] 08/30/2017 Assessment & Plan (03/02/2017 10:48 AM AIRPLANE AND ENGINE INSPECTOR): Mood is improved. Monitor off medication. [...] 200. Assessment & Plan (03/07/2018 6:56 AM AIRPLANE AND ENGINE INSPECTOR): Continue current regimen. Advised annual eye [...] 01/17/2019 Influenza, Unspecified 01/17/2019(Deferred: Daisy ent Refused) Turbocoating (J&J) SARS-CoV-2 Vaccination 06/14/2020, 06/14/2020 Pfizer SARS-CoV-2 [...] pur e alcohol) Occasional glass of wine. [facility] [employer] Answer Date Recorded In the past 12 months has [employer], gas, oil, or water company threatened [...] often do you attend chur ch or mormonism services? Never 04/04/2024 Do you belong to any clubs o r organizations such as zoroastrianism groups, unions, fraternal or athletic groups, or [...] any time in the past 12 m [facility], were you homeless or living in a retirement (including now)? No 04/04/2024 Personal Safety Answer Date Recorded Have you ever been in or are you currently in a harmful physical or emotional relationship or is someone making you feel afraid or unsafe? Denies 06/09/2023 Sex and Gender Information Value Date Recorded Sex Assigned at Not on file Legal Sex Male 4:46 PM AIRPLANE AND ENGINE INSPECTOR Gender Identity Not on file Sexual [...] cm (5' 9 ) 06/14/2024 2:58 PM AIRPLANE AND ENGINE INSPECTOR Body Mass Index 29.98 06/14/2024 2:58 PM AIRPLANE AND ENGINE INSPECTOR Plan of Treatment Not on file Goals Goal Patient Goal Type Associated Problems Recent Progress Patient-Stated? Author ZAK General Goal - Patient establishes care with [facility] ACO Care Management On track(2023 1:22 PM AIRPLANE AND ENGINE INSPECTOR) No Clarissa Luna RN Note: Problem: Lack of [facility] communication Interventions: - Provide coordination between [facility] company and patient. - Ensure [facility] has appropriate referral and orders to establish care with patient. - Follow up with patient to ensure initial visit was completed by [facility] and that a [facility] plan has been started. ZAK General Goal - Patient schedules and keeps appointments with all recommended providers ACO Care Management Improving( 1:22 PM AIRPLANE AND ENGINE INSPECTOR) No Clarissa Luna RN Note: Problem: [...] medication regimen. Medical Devices Implanted Type Area Top Inventory Control Executive Device Identifier Shelf Expiration Date Model / Serial / Lot [employer] Lens Iol Cna0t0.195 [facility] Autonom Cna0t0.195 - [id number] - [id number] Implanted:Qty: 1 on 06/09/2023 by Higinio Connolly MD at [facility] Lens Right: Eye [employer] [id number] 10/27/2025 CNA0T0.19 5 / [id number] / [employer] Lens Iol Cna0t0.200 [facility] Autonom Cna0t0.200 - [id number] - [id number] Implanted:Qty: 1 on 05/19/2023 by Higinio Connolly MD at [facility] Left: Eye [employer] [facility] [id number] 10/06/2025 CNA0T0.20 0 / [id number] / Procedures Procedure Name Priority Date/Time [...] AM CDT EGFR Routine 06/14/2024 3:48 PM AIRPLANE AND ENGINE INSPECTOR GABRIELA (acute kidney injury) RENAL FUNCTION PANEL Routine 06/14/2024 3:48 PM AIRPLANE AND ENGINE INSPECTOR GABRIELA (acute kidney injury) URINALYSIS AND REFLEX TO MICROSCOPIC Routine 06/08/2024 10:47 AM AIRPLANE AND ENGINE INSPECTOR Anemia in stage 3b chronic kidney disease (HCC) Hypertension, essential Secondary hyperparathyroidism of renal origin Stage 3 chronic kidney disease, unspecified whether stage 3a or 3b CKD (HCC) Primary hypertension Vitamin D deficiency Type 2 diabetes mellitus with stage 3a chronic kidney disease, with long-term current use of insulin (HCC) Fatigue, unspecified type GABRIELA (acute kidney injury) EGFR Routine 06/08/2024 10:44 AM AIRPLANE AND ENGINE INSPECTOR Anemia in stage 3b chronic kidney [...] injury) DIFFERENTIAL AUTO Routine 06/08/2024 10:44 AM AIRPLANE AND ENGINE INSPECTOR Anemia in stage 3b chronic kidney [...] RENAL FUNCTION PANEL Routine 06/08/2024 10:44 AM AIRPLANE AND ENGINE INSPECTOR Anemia in stage 3b chronic kidney [...] D 25 HYDROXY Routine 06/08/2024 10:44 AM AIRPLANE AND ENGINE INSPECTOR Anemia in stage 3b chronic kidney [...] WITH AUTO DIFFERENTIAL Routine 06/08/2024 10:44 AM AIRPLANE AND ENGINE INSPECTOR Anemia in stage 3b chronic kidney disease (HCC) Hypertension, essential Secondary hyperparathyroidism of renal origin Stage 3 chronic kidney disease, unspecified whether stage 3a or 3b CKD (HCC) Primary hypertension Vitamin D deficiency Type 2 diabetes mellitus with stage 3a chronic kidney disease, with long-term current use of insulin (HCC) Fatigue, unspecified type GABRIELA (acute kidney injury) PTH Routine 06/08/2024 10:44 AM AIRPLANE AND ENGINE INSPECTOR Anemia in stage 3b chronic kidney [...] RATIO, URINE, RANDOM Routine 06/08/2024 10:44 AM AIRPLANE AND ENGINE INSPECTOR Anemia in stage 3b chronic kidney [...] injury) LIPID PANEL Routine 03/08/2023 11:55 AM AIRPLANE AND ENGINE INSPECTOR Hyperlipidemia, unspecified hyperlipidemia type ALBUMIN CREATININE RATIO, URINE Routine 01/01/2023 10:40 AM CDT Type 2 diabetes mellitus with stage 3a chronic kidney disease, with long-term current use of insulin ([facility]) DIABETES EYE EXAM Routine 06/29/2018 [...] Large Ketones, ur, POC Negative Negative Specific Hardin, POC 1.015 1.003 - 1.030 Blood, ur, POC Hemolyzed, trace(A) Negative pH, ur, POC 6.0 5.0 - 8.0 Protein, ur, POC 30.(A) Negative Urobilinogen, urine, POC 0.2 0.2 - 1.0 mg/dL Nitrite, ur, POC Negative Negative Leukocytes, ur, POC Negative Negative Lot Number [id number] Urine 07/19/2024 2:16 PM CDT Result [facility] Clau ESQUIVEL POINT OF CARE TEST ORDER ALAN Final Result * Urine culture Urine, clean voided (07/19/2024 12:00 PM CDT) Report Final Report: No growth Comment:Testing performed by : [facility], [address] [facility], [place]., [address] Urine, clean voided 07/19/2024 12:00 PM CDT 07/20/2024 2:19 AM CDT Narrative [facility] - 07/21/2024 7:38 AM CDT Testing performed by [facility] Microbiology Laboratory ([phone]) Clau ESQUIVEL LAB MICROBIOLOGY - GENER AL ORDERABLES Final Result [facility] [id number] [place] [address] * (ABNORMAL) eGFR (07/18/2024 12:07 PM CDT) [...] Final Resul t [facility] [place] [address] * (ABNORMAL) Differential, auto (07/18/2024 12:07 PM CDT) Neutrophil abs 17.55(H) 1.50 - 6.50 K/cumm Comment:Testing performed by : [facility], [address] [place] [phone] Lymphocyte abs 0.96 0.80 - 3.30 K/cumm [facility] PERDOMO Comment:Testing performed by : [facility]e [facility], [address] [place] [phone] Monocyte abs 1.48(H) 0.20 - 0.80 K/cumm [facility] Comment:Testing performed by : [facility], [address] [place], [place] [phone] Eosinophil abs 0.06 0.00 - 0.50 K/cumm [facility] Comment:Testing performed by : [facility], [address] [place] [phone] Basophil abs 0.03 0.00 - 0.10 K/cumm C[facility]ER [facility] Comment:Testing performed by : [facility], [address] [place] [address] Neutrophil pct 87.4 % C[facility]ER [facility] Comment: Interpretive Data Percent cell count reference ranges are not reported, since discordance with absolute values may lead to misinterpretation of CBC data. Current Interpretive Data was last revised on 2017. Testing performed by: [facility], [address] [place] [phone] Lymphocyte pct 4.8 % C[facility]ER [facility] Comment: Interpretive Data Percent cell count reference ranges are not reported, since discordance with absolute values may lead to misinterpretation of CBC data. Current Interpretive Data was last revised on 2017. Testing performed by: [facility], [address] [place] [phone] Monocyte pct 7.4 % [facility] Comment: Interpretive Data Percent cell count reference ranges are not reported, since discordance with absolute values may lead to misinterpretation of CBC data. Current Interpretive Data was last revised on 2017. Testing performed by: [facility], [address] [place] [phone] Eosinophil pct 0.3 % [facility] Comment: Interpretive Data Percent cell count reference ranges are not reported, since discordance with absolute values may lead to misinterpretation of CBC data. Current Interpretive Data was last revised on 2017. Testing performed by: [facility], [address] [place] [phone] Basophil pct 0.2 % CERNER [facility] Comment: Interpretive Data Percent cell count reference ranges are not reported, since discordance with absolute values may lead to misinterpretation of CBC data. Current Interpretive Data was last revised on 2017. Testing performed by: [facility]e [facility], [address] [place] [address] Blood 07/18/2024 12:0 7 PM CDT 07/18/2024 12:22 PM CDT us Gautam Cope MD LAB BLOOD ORDERABLES Final Resul t [facility] [place] [address] * (ABNORMAL) CBC with auto differential (07/18/2024 12:07 PM CDT) WBC 20.09(H) 3.80 - 9.90 K/cumm Comment:Testing performed by : [facility]e [facility], [address] [place] [address] Hgb 12.1(L) 13.0 - 17.5 g/dL [facility] PERDOMO Comment:Testing performed by : [facility]e [facility], [address] [place] [address] Hct 38.2(L) 38.9 - 50.3 % [facility] PERDOMO Comment:Testing performed by : [facility]e [facility], [address] [place] [address] Plt 451(H) 150 - 400 K/cumm [facility] PERDOMO Comment:Testing performed by : [facility]e [facility], [address] [place] [address] MPV 7.7 6.8 - 10.4 fL [facility] Comment:Testing performed by : [facility], [address] [place] [address] RBC 4.46 4.30 - 5.80 M/cumm [facility] Comment:Testing performed by : [facility]e [facility], [address] [place] [address] MCV 85.5 81.3 - 96.4 fL [facility] Comment:Testing performed by : [facility] Heme [facility], [address] [place] [address] MCH 27.1 27.1 - 33.3 pg [facility] Comment:Testing performed by : [facility] Heme [facility], [address] [place] [address] MCHC 31.7(L) 32.3 - 35.7 g/dL [facility] Comment:Testing performed by : [facility]e [facility], [address] [place] [address] RDW CV 14.9 11.1 - 14.9 % [facility] Comment:Testing performed by : [facility]e [facility], [address] [place] [address] NRBC abs 0.00 0.00 - 0.01 K/cumm [facility] Comment:Testing performed by : [facility]e [facility], [address] [place] [address] Blood 07/18/2024 12:0 7 PM CDT 07/18/2024 12:22 PM CDT us Gautam Cope MD LAB BLOOD ORDERABLES Final Resul t [facility] [place] [address] * PSA diagnostic (07/18/2024 12:07 PM CDT) [...] Final Resul t Performing Organization Address City/[facility] Co de Phone Number [facility] [place] [address] * Lactate dehydrogenase (LD) (07/18/2024 12:07 PM CDT) Lactate dehydrogenase (LDH) 216 100 - 250 Units/L Blood 07/18/2024 12:0 7 PM CDT 07/18/2024 12:25 PM CDT Result [facility] us Gautam Cope MD LAB BLOOD ORDERABLES Final Resul t Performing Organization Address [facility] de Phone Number [facility] [employer] [place] [address] * (ABNORMAL) Hemoglobin A1c (07/18/2024 12:07 PM CDT) Hgb A1C 8.0(H) 4.0 - 5.6 % Estimated Average Glucose 183 mg/dL [facility] Comment: The ADA recommends reporting an [...] ORDERABLES Final Resul t Performing Organization Address [facility] Co de Phone Number [facility] [employer] [place] [address] * (ABNORMAL) Comprehensive metabolic panel (07/18/2024 12:07 PM CDT) Sodium 142 135 - 145 mmol/L Potassium, pl 4.6 3.3 - 4.9 mmol/L [facility] Chloride 106 97 - 110 mmol/L [facility] CO2 24 22 - 32 mmol/L [facility] Anion gap 12 2 - 15 mmol/L [facility] BUN 52(H) 6 - 25 mg/dL [facility] Creatinine 2.66(H) 0.80 - 1.30 mg/dL [facility] Glucose 164 70 - 199 mg/dL [facility] Comment: Interpretive Data Fasting glucose >/= [...] 2022. Calcium 9.0 8.5 - 10.3 mg/dL [facility] Bilirubin, total 0.5 0.1 - 1.2 mg/dL [facility] Protein, pl 6.7 6.5 - 8.5 g/dL [facility] Albumin 4.0 3.5 - 5.0 g/dL [facility] Alk phos 126 40 - 130 Units/L [facility] ALT 10 7 - 55 Units/L [facility] AST 13 10 - 50 Units/L [facility] Blood 07/18/2024 12:0 7 PM CDT 07/18/2024 12:25 PM CDT us Gautam Cope MD LAB BLOOD ORDERABLES Final Resul t [facility] [place] [address] * SCAN - RADIOLOGY/IMAGING (07/01/2024 9:44 AM CDT) Anatomical Region Laterality Modality Other us Provider Scanning Final Result * (ABNORMAL) eGFR (06/14/2024 3:48 PM AIRPLANE AND ENGINE INSPECTOR) eGFR 26(L) >=60 mL/min/1. 73 m2 [...] last reviewed 2021. Blood 06/14/2024 3:48 PM AIRPLANE AND ENGINE INSPECTOR 06/14/2024 4:07 PM AIRPLANE AND ENGINE INSPECTOR Lin Guerrero MD LAB BLOOD ORDERABLES Final Resul t [facility] [place] [address] * (ABNORMAL) Renal function panel (06/14/2024 3:48 PM AIRPLANE AND ENGINE INSPECTOR) Sodium 143 135 - 145 mmol/L Potassium, pl 5.0(H) 3.3 - 4.9 mmol/L [facility] Chloride 105 97 - 110 mmol/L [facility] CO2 28 22 - 32 mmol/L [facility] Anion gap 10 2 - 15 mmol/L [facility] BUN 48(H) 6 - 25 mg/dL [facility] Creatinine 2.42(H) 0.80 - 1.30 mg/dL [facility] Glucose 152 70 - 199 mg/dL [facility] Comment: Interpretive Data Fasting glucose >/= [...] 2022. Calcium 8.7 8.5 - 10.3 mg/dL [facility] Phosphorus, pl 3.1 2.3 - 4.5 mg/dL [facility] Albumin 3.9 3.5 - 5.0 g/dL [facility] Blood 06/14/2024 3:48 PM AIRPLANE AND ENGINE INSPECTOR 06/14/2024 4:03 PM AIRPLANE AND ENGINE INSPECTOR us Lin Guerrero MD LAB BLOOD ORDERABLES Final Resul t [facility] [place] [address] * Urinalysis reflex to microscopic (06/08/2024 10:47 AM AIRPLANE AND ENGINE INSPECTOR) Color, ur Straw Yellow Clarity, ur Clear Clear [facility] Specific gravity, ur 1.012 1.003 - 1.030 [facility] pH, urine 6.0 [facility] Comment: Interpretive Data U rine pH is affected by diet, medications, systemic acid-base disturbances, and renal tubular function. pH may affect urinary stone formation. For example, urine pH below 6.0 may help reduce the tendency for calcium phosphate stones and pH greater than 6.0 may reduce the tendency for uric acid stone formation. Source: JUNIQE Current Interpretive Data was last revised on 2017 Protein, ur ql Trace Negative [facility] Glucose, ur ql Negative Negative [facility] Ketones, ur Negative Negative [facility] Bilirubin, ur Negative Negative [facility] Blood, ur Negative Negative [facility] Urobilinogen, ur <2.0 <2.0 mg/dL [facility] Nitrite, ur Negative Negative [facility] Leukocyte esterase, ur Negative Negative [facility] UA reflex comment Reflex conditions for microscopic UA not met. [facility] Urine 06/08/2024 10:4 7 AM AIRPLANE AND ENGINE INSPECTOR 06/08/2024 11:41 AM AIRPLANE AND ENGINE INSPECTOR Lin Guerrero MD LAB URINE ORDERABLES Final Resul t Performing Organization Address [facility] Co de Phone Number [facility] [place] [address] * (ABNORMAL) eGFR (06/08/2024 10:44 AM AIRPLANE AND ENGINE INSPECTOR) eGFR 22(L) >=60 mL/min/1. 73 m2 [...] reviewed 2021. Blood 06/08/2024 10:4 4 AM AIRPLANE AND ENGINE INSPECTOR 06/08/2024 11:23 AM AIRPLANE AND ENGINE INSPECTOR us Lin Guerrero MD LAB BLOOD ORDERABLES Final Resul t Performing Organization Address City/[facility]/ZIP Co de Phone Number [facility] [place] [address] * (ABNORMAL) Differential, auto (06/08/2024 10:44 AM AIRPLANE AND ENGINE INSPECTOR) Neutrophil abs 7.8(H) 1.5 - 6.5 K/cumm Imm gran abs 0.1 0.0 - 0.1 K/cumm [facility] Lymphocyte abs 1.9 0.8 - 3.3 K/cumm [facility] Monocyte abs 1.0(H) 0.2 - 0.8 K/cumm [...] on 2017. Imm gran pct 0.8 % [facility] Comment: Interpretive Data Percent cell count reference ranges are not reported, since discordance with absolute values may lead to misinterpretation of CBC data. Current Interpretive Data was last revised on 2017. Lymphocyte pct 17.1 % [facility] Comment: Interpretive Data Percent cell count reference ranges are not reported, since discordance with absolute values may lead to misinterpretation of CBC data. Current Interpretive Data was last revised on 2017. Monocyte pct 9.3 % [facility] Comment: Interpretive Data Percent cell count reference ranges are not reported, since discordance with absolute values may lead to misinterpretation of CBC data. Current Interpretive Data was last revised on 2017. Eosinophil pct 1.3 % [facility] Comment: Interpretive Data Percent cell count reference [...] on 2017. Blood 06/08/2024 10:4 4 AM AIRPLANE AND ENGINE INSPECTOR 06/08/2024 11:23 AM AIRPLANE AND ENGINE INSPECTOR Lin Guerrero MD LAB BLOOD ORDERABLES Final Resul t Performing Organization Address [facility] Co de Phone Number [facility] [place] [address] * (ABNORMAL) CBC with auto differential (06/08/2024 10:44 AM AIRPLANE AND ENGINE INSPECTOR) [facility] WBC 11.0(H) 3.8 - 9.9 K/cumm Hgb 12.0(L) 13.0 - 17.5 g/dL [facility] Hct 36.9(L) 38.9 - 50.3 % [facility] Plt 357 150 - 400 K/cumm [facility] MPV 9.8 9.1 - 12.3 fL [facility] RBC 4.27(L) 4.30 - 5.80 M/cumm [facility] MCV 86.4 81.3 - 96.4 fL [facility] MCH 28.1 27.1 - 33.3 pg [facility] MCHC 32.5 32.3 - 35.7 g/dL [facility] RDW CV 14.1 11.1 - 14.9 % [facility] RDW SD 44.2 35.7 - 48.1 fL [facility] NRBC abs 0.00 0.00 - 0.01 K/cumm [facility] Blood 06/08/2024 10:4 4 AM AIRPLANE AND ENGINE INSPECTOR 06/08/2024 11:23 AM AIRPLANE AND ENGINE INSPECTOR Lin Guerrero MD LAB BLOOD ORDERABLES Final Resul t Performing Organization Address [facility]/ZIP Co de Phone Number [facility] [place] [address] * (ABNORMAL) Protein / creatinine ratio, urine, random (06/08/2024 10:44 AM AIRPLANE AND ENGINE INSPECTOR) [facility] Protein, ur, quant 21.3 mg/dL Comment: Interpretive Data No reference range established. Current interpretive data was last revised 2018. Creatinine Ur 52.2 mg/dL [facility] Comment: Interpretive Data No reference range established. Current interpretive data was last revised 2018. Protein/creatinin e ratio 408.0(H) 0.0 - 180.0 mg/g CR [facility] Urine 06/08/2024 10:4 4 AM AIRPLANE AND ENGINE INSPECTOR 06/08/2024 11:23 AM AIRPLANE AND ENGINE INSPECTOR us Lin Guerrero MD LAB URINE ORDERABLES Final Resul t Performing Organization Address City/[facility] Co de Phone Number [facility] [employer] [place] [address] * Vitamin D 25 hydroxy (06/08/2024 10:44 AM AIRPLANE AND ENGINE INSPECTOR) Vitamin D 25-OH 42 30 - 80 ng/mL Blood 06/08/2024 10:4 4 AM AIRPLANE AND ENGINE INSPECTOR 06/08/2024 11:23 AM AIRPLANE AND ENGINE INSPECTOR us Lin Guerrero MD LAB BLOOD ORDERABLES Final Resul t Performing Organization Address [facility] Co de Phone Number [facility] Department [place] [employer] [place] [address] * (ABNORMAL) PTH (06/08/2024 10:44 AM AIRPLANE AND ENGINE INSPECTOR) PTH 78(H) 15 - 65 pg/mL Blood 06/08/2024 10:4 4 AM AIRPLANE AND ENGINE INSPECTOR 06/08/2024 11:23 AM AIRPLANE AND ENGINE INSPECTOR us Lin Guerrero MD LAB BLOOD ORDERABLES Final Resul t Performing Organization Address [facility] Co de Phone Number [facility] [employer] [place] [address] * (ABNORMAL) Renal function panel (06/08/2024 10:44 AM AIRPLANE AND ENGINE INSPECTOR) Sodium 142 135 - 145 mmol/L Potassium, pl 4.8 3.3 - 4.9 mmol/L [facility] Chloride 107 97 - 110 mmol/L [facility] CO2 27 22 - 32 mmol/L [facility] Anion gap 8 2 - 15 mmol/L [facility] BUN 60(H) 6 - 25 mg/dL [facility] Creatinine 2.72(H) 0.80 - 1.30 mg/dL [facility] Glucose 94 70 - 199 mg/dL [facility] Comment: Interpretive Data Fasting glucose >/= [...] 2022. Calcium 9.0 8.5 - 10.3 mg/dL [facility] Phosphorus, pl 3.5 2.3 - 4.5 mg/dL [facility] Albumin 3.8 3.5 - 5.0 g/dL [facility] Blood 06/08/2024 10:4 4 AM AIRPLANE AND ENGINE INSPECTOR 06/08/2024 11:23 AM AIRPLANE AND ENGINE INSPECTOR us Lin Guerrero MD LAB BLOOD ORDERABLES Final Resul t [facility] [place] [address] * (ABNORMAL) Lipid panel (03/08/2023 11:55 AM AIRPLANE AND ENGINE INSPECTOR) Cholesterol 193 30 - 199 mg/dL [facility] Comment: Interpretive Data Ages < or [...] revised on 2017. Triglycerides 250(H) <=149 mg/dL [facility] Comment: Interpretive Data Ages < or [...] revised on 2017. HDL 36(L) >=40 mg/dL [facility] Comment: Interpretive Data Ages < or [...] on 2017. LDL, calculated 107 <=129 mg/dL [facility] Comment: Interpretive Data Ages < or [...] revised on 2017. Non-HDL Cholesterol 157 mg/dL [facility] Comment: Interpretive Data Ages < or [...] last revised on 2017. Chol/HDL ratio 5 [facility] Blood 03/08/2023 11:5 5 AM AIRPLANE AND ENGINE INSPECTOR 03/08/2023 3:48 PM AIRPLANE AND ENGINE INSPECTOR Kraig Ching MD LAB BLOOD ORDERABLES Final Re sult Performing Organization Address [facility] de Phone Number [facility] [place] [address] * (ABNORMAL) Albumin Creatinine Ratio, Urine (01/01/2023 10:40 AM CDT) Pathologist [facility] Albumin Ur 227.3 mg/L [facility] Comment: Interpretive Data No reference range established. Current interpretive data was last revised 2018. Creatinine Ur 66.5 mg/dL [facility] Comment: Interpretive Data No reference range established. Current interpretive data was last revised 2018. Albumin Creatinine Ratio, Ur 342(H) 1 - 29 mg/g [facility] Urine 01/01/2023 10:4 0 AM CDT 01/01/2023 10:45 AM CDT Kraig Ching MD LAB URINE ORDERABLES Final Re sult Performing Organization Address [facility] Co de Phone Number [facility] [place] [address] * DIABETES EYE EXAM (06/29/2018) Pathologist [facility] Diabetic Eye Exam Normal us Historical Provider HEALTH MAINTENANCE Final Result from Last 3 Months or Most Recently Relevant to Health Maintenance Insurance T MEDICARE T MEDICARE T MEDICARE [employer] MEDICARE Advance Directives For more information, please contact: [phone] * Full Code (Latest Code Status on File) Date Activated Date Inactivated Comments 12/16/2017 2:44 PM 12/16/2017 7:18 PM Care Teams Education Consultant Relationship Specialty Start Date End Date Kraig Ching MD [address] [facility] [address] [place] [address] PCP - General 07/10/16 Gautam Cope MD [address] [place] [address] Medical Oncologist/Robotic Technician Medical Oncology 08/18/18 Tramaine Roe MD [address] [facility] [address] [place] [address] Referring Physician Urology 08/18/18 Sukhwinder Uribe MD [address] [facility] [address] [place] [address] Consulting Physician Urology 08/18/18 Shay Guillermo MD [address] [facility] [address] [place] [address] Referring Physician Urology 08/18/18 Marsha Landis, RN Registered Nurse 11/17/18
[2024-08-27 17:43] VITALS: BP 102/50; PULSE 96; RESP 16; TEMP 37.4; O2SAT 97
--- NOTE | 2024-08-27 17:50 | ED_ITS ---
HPI - Abdominal Pain General Chief Complaint: Abdominal Pain Stated Complaint: ABD PAIN,N/V X2 DAYS Time Seen by Provider: 08/27/24 21:48 Focused HPI: 83-year-old male history of hypertension, hyperlipidemia, CKD, AFib presents to emergency department with at bedside for diffuse abdominal pain, nausea, vomiting and decreased p.o. intake for the past 2 days. Pt reportedly developed decreased p.o. intake and nausea 2 days ago after getting lunch with a friend. Patient reports diffuse abdominal discomfort, no focal pain. Was constipated and then his gave him prune juice and he had an episode of diarrhea today. He denies chest pain or shortness of breath. Is endorsing some cough and congestion as well. Reports a prior history of pancreatitis, s/p cholecystectomy, s/p unknown surgery to pancreas in 1998. GENERAL: Well-appearing, well-nourished, and in no acute distress. HEAD: Normocephalic, atraumatic. CHEST: Clear to auscultation. ?No respiratory distress. HEART: Regular rate and rhythm.? NEURO: ?Alert and oriented x3. Patient screened in triage and initial orders placed.? ?Additional care and disposition to be based upon?diagnostic testing and treatment. Related Data Home Medications ?Medication ?Instructions ?Recorded ?Confirmed ?Last Taken ?Type insulin aspart U-100 100 unit/mL 8 unit subcut TID 06/19/22 07/30/24 07/20/24 History (3 mL) subcutaneous pen (Novolog FlexPen U-100 Insulin aspart) insulin glargine 100 unit/mL (3 28 unit subcut QHS 06/19/22 07/30/24 08/02/23 History mL) subcutaneous pen (Lantus Solostar U-100 Insulin) pantoprazole 40 mg tablet,delayed 40 mg PO DAILY 06/19/22 07/30/24 08/02/23 History release abiraterone 250 mg tablet 1,000 mg PO HS 03/26/24 07/30/24 07/20/24 History carvedilol 12.5 mg tablet 12.5 mg PO Q12H 03/26/24 07/30/24 Unknown History chlorthalidone 25 mg tablet 25 mg PO DAILY 03/26/24 07/30/24 Unknown History dorzolamide 22.3 mg-timolol 6.8 1 drp EACH EYE Q12H 03/26/24 07/30/24 Unknown History mg/mL eye drops insulin aspart U-100 100 unit/mL 1 sliding scale dose subcut TID 03/26/24 07/30/24 Unknown History (3 mL) subcutaneous pen (Novolog FlexPen U-100 Insulin aspart) lisinopril 20 mg tablet 40 mg PO DAILY 03/26/24 07/30/24 07/20/24 History oxycodone 5 mg tablet 5 mg PO Q6H PRN pain 03/26/24 07/30/24 07/21/24 History pravastatin 20 mg tablet 20 mg PO HS 03/26/24 07/30/24 07/20/24 History prednisone 5 mg tablet 5 mg PO Q12H 03/26/24 07/30/24 07/20/24 History sitagliptin phosphate 25 mg tablet 25 mg PO DAILY 03/26/24 07/30/24 07/20/24 History (Kendra) Allergies Allergy/AdvReac Type Severity Reaction Status Date / Time No Known Drug Allergies Allergy Unknown Other Verified 08/27/24 17:36 Review of Systems 2 Review of Systems: All systems reviewed & are unremarkable except as noted in HPI and below PMFSH Past Medical History Medical History Esophageal ulcer Chronic kidney disease, stage 3 Paroxysmal atrial fibrillation Gastroesophageal reflux disease 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 He smokes 1-2 cigarettes per day most days. He denies marijuana use or other drug use. He drinks 1-2 alcoholic drinks per week. He has cats. Code status -full Surrogate decision maker - Years smoked: 50 Smoking status: Former smoker Tobacco type: cigarettes Second hand tobacco smoke exposure: Yes Additional smoking assessment comments: marijuana daily and regular cigarettes smokes intermittently Alcohol intake: current Drinks per week: 1 Substance use: current Substance use type: marijuana Other substance usage details: smoke once a day Last use: 07/30/2023 Do You Feel Safe in your Home?: Yes Lack of Transportation: No Lack of Food: Never True Current Housing: I Have Housing Concerned About Future Housing: No Difficulty Paying Gas/Electric Bills: No Difficulty Paying for Meds: No Currently Unemployed: No Education: Master's Degree or Higher Difficulty w/ Childcare or Family Care: No Spiritual care concerns: No Exam 2 Narrative: GENERAL: Well-appearing, well-nourished, and in no acute distress. HEAD: Normocephalic, atraumatic. EYES: EOMI. ENT: Nares clear, no rhinorrhea or epistaxis. Mucous membranes moist. NECK: Supple. CHEST: Clear to auscultation. No respiratory distress. HEART: Regular rate and rhythm. No murmur heard. Normal peripheral pulses. ABDOMEN: Soft, nontender, nondistended, normal active bowel sounds. No rebound, guarding or rigidity. No CVA tenderness EXTREMITIES: Normal range of motion. No edema. SKIN: Warm, dry, no rash. NEURO: No focal deficits. Alert and oriented x3 Course Vital Signs Vital signs: Vital Signs Temperature 99.3 F 08/27/24 17:43 Pulse Rate 96 08/27/24 17:43 Respiratory Rate 16 08/27/24 17:43 Blood Pressure 102/50 L 08/27/24 17:43 Pulse Oximetry 97 08/27/24 17:43 Oxygen Delivery Room Air 08/27/24 17:43 Temperature 99.3 F 08/27/24 17:43 Pulse Rate 108 H 08/27/24 22:21 Respiratory Rate 20 08/27/24 22:21 Blood Pressure 167/50 H 08/27/24 23:12 Pulse Oximetry 100 08/27/24 22:21 Oxygen Delivery Room Air 08/27/24 17:43 MDM - Abdominal Pain MDM Narrative Medical decision making narrative: 83-year-old male with history of CKD, AFib, GERD, hypertension, hyperlipidemia, type 2 diabetes presents to the emergency department for nausea and decreased p.o. intake over the past 2 days. Triage vitals with soft blood pressure 102/50, otherwise unremarkable. Exam significant for the above. CBC with mild leukocytosis of 10.8. Hemoglobin increased from prior at 12.2. Chemistries with a creatinine of 2.26 and BUN of 30. Patient does have a prior history of CKD and this is consistent with prior labs. Viral swabs are negative. Lactic within normal limits. Chest x-ray shows no acute cardiopulmonary findings. UA with trace ketones and RBCs, no UTI. CT abdomen pelvis shows no acute findings. Patient at bedside updated on results. He received IV fluids and Zofran with improvement. He is tolerating p.o. intake and ambulatory with a walker at his baseline. Patient feels safe to be discharged home with a script for Zofran. Advised increase fluid intake and follow-up with PCP. Discussed return precautions. He is agreeable to plan verbalized understanding. Discharged in stable condition. Lab Data 08/27/24 20:12 08/27/24 20:12 Labs: Lab Results 08/27/24 08/27/24 08/27/24 Range/Units 20:12 22:20 23:24 WBC 10.8 H (4.5-10.0) K/mm3 RBC 4.52 L (4.6-6.20) M/mm3 Hgb 12.2 L (14.0-18.0) g/dL Hct 38.7 L (42.0-52.0) % MCV 85.6 (80-100) fl MCH 27.0 (26-34) pg MCHC 31.5 L (32-36) g/dl RDW 14.6 H (11.5-14.5) % Plt Count 376 H D (150-375) k/mm3 MPV 9.4 (7.4-10.4) fl Immature Gran % (Auto) 0.9 H (0-0.5) % Neut % (Auto) 72.5 (45.5-73.1) % Lymph % (Auto) 13.8 L (18.3-44.2) % [place] % (Auto) 10.6 H (2.6-8.5) % Eos % (Auto) 1.8 (0-4.4) % Baso % (Auto) 0.4 (0.2-1.2) % Lymph # (Auto) 1.48 (0.9-3.2) K/mm3 [place] # (Auto) 1.1 H (0.1-0.6) K/mm3 Eos # (Auto) 0.2 (0-0.3) K/mm3 Baso # (Auto) 0.0 (0.0-0.1) K/mm3 Abs Immat Gran (auto) 0.10 H (0.00-0.031) K/mm3 Absolute Neuts (auto) 7.8 H (1.3-6.7) K/mm3 Absolute Nucleated RBC 0.000 (0.0-0.012) K/mm3 Nucleated RBC % 0.0 (0.0-0.2) % Sodium 134 L (137-145) mmol/L Potassium 3.5 (3.4-5.0) mmol/L Chloride 102 (98-107) mmol/L Carbon Dioxide 23 (22-30) mmol/L Anion Gap 9 (4-12) mmol/L BUN 30 H D (9-20) mg/dL Creatinine 2.26 H (0.7-1.3) mg/dL Estim Creat Clear Calc 23 ml/min Estimated GFR 28 L (59 - ) Glucose 193 H (65-110) mg/dL Lactic Acid 0.9 (0.7-2.0) mmol/L Calcium 8.9 (8.4-10.2) mg/dL Total Bilirubin 1.0 (0.2-1.3) mg/dL AST 22 (17-59) U/L ALT 16 (6-50) U/L Alkaline Phosphatase 128 H (38-126) U/L Total Protein 7.0 (6.3-8.2) g/dL Albumin 3.6 (3.5-5.1) g/dL Lipase 44 (23-300) U/L Urine Color Yellow (Yellow) Urine Appearance Clear (Clear) Urine pH 5.5 (5.0-9.0) Ur Specific [place] 1.012 (1.001-1.035) Urine Protein 2+ H (Negative) mg/dL Urine Glucose (UA) Negative (Negative) mg/dL Urine Ketones Trace H (Negative) mg/dL Ur Blood (Man) Trace (Negative) Urine Nitrate Negative (Negative) Urine Bilirubin Negative (Negative) Urine Urobilinogen 0.2 (<2.0) mg/dL Add Ur Microanalysis Reviewed Leukocyte Esterase Rfl Negative (Negative) NADYA/UL Urine RBC 3-5 H (0-2) /hpf Urine WBC 0-5 (0-3) /hpf Ur Squamous Epith Cells None seen (Few) /hpf Urine Bacteria None seen /hpf Urine Casts 6-10 Influenza A (RT-PCR) Negative Negative (Negative) Influenza B (RT-PCR) Negative Negative (Negative) RSV (RT-PCR) Negative Negative (Negative) SARS-CoV-2 RNA (RT-PCR) Negative Negative (Negative) Imaging Data Radiologist's impression: ITS Impressions Chest X-Ray 08/27/24 18:03 IMPRESSION: No focal infiltrate or effusion. Abdomen/Pelvis CT 08/27/24 21:42 IMPRESSION: No acute findings within the abdomen or pelvis. Innumerable nonacute findings as detailed above Discharge Plan Discharge Clinical Impression: Nausea Patient Disposition: Home Condition: Stable Instructions: Antibiotic Form, Acute Nausea and Vomiting (DC) Additional Instructions: Please take the ondansetron as needed for nausea. Drink plenty fluids including water, Gatorade and Pedialyte. Follow-up closely with your primary care provider. Return to the emergency department if you develop fever of 100.4 or greater, focal abdominal pain, your unable to tolerate food or fluids, or other concerning symptoms. Patient Language: Khmer Prescriptions: New ondansetron 4 mg tablet,disintegrating 4 mg PO Q8H Qty: 14 0RF No Action pantoprazole 40 mg tablet,delayed release (DR/EC) 40 mg PO DAILY insulin aspart U-100 [Novolog FlexPen U-100 Insulin] 100 unit/mL (3 mL) insulin pen 8 unit SUBCUT TID Protocol: Insulin Corrective Low-Dose Condition: glucose < 70 mg/dl Dose/Route: Follow Hypoglycemia Order Condition: glucose 70-200 mg/dl Dose/Route: No additional insulin Condition: glucose 201-250 mg/dl Dose/Route: 2 units sub-Q Condition: glucose 251-300 mg/dl Dose/Route: 3 units sub-Q Condition: glucose 301-350 mg/dl Dose/Route: 4 units sub-Q Condition: glucose 351-400 mg/dl Dose/Route: 5 units sub-Q Condition: glucose > 400 mg/dl Dose/Route: Call MD Protocol Text: *No Correction Dose at Bedtime* Rx Instructions: Pt states he takes for glucose level 150 or higher. pt takes this intermittently insulin glargine [Lantus Solostar U-100 Insulin] 100 unit/mL (3 mL) insulin pen 28 unit subcut QHS Rx Instructions: Pt states he holds medication if glucose levels under 140. albuterol sulfate 90 mcg/actuation HFA aerosol inhaler 2 puff inhalation QID PRN (Reason: shortness of breath or wheezing) Qty: 8.5 2RF abiraterone 250 mg tablet 1,000 mg PO HS carvedilol 12.5 mg tablet 12.5 mg PO Q12H lisinopril 20 mg tablet 40 mg PO DAILY chlorthalidone 25 mg tablet 25 mg PO DAILY dorzolamide-timolol 22.3-6.8 mg/mL drops 1 drp EACH EYE Q12H oxycodone 5 mg tablet 5 mg PO Q6H PRN (Reason: pain) prednisone 5 mg tablet 5 mg PO Q12H pravastatin 20 mg tablet 20 mg PO HS Januvia 25 mg tablet 25 mg PO DAILY insulin aspart U-100 [Novolog FlexPen U-100 Insulin] 100 unit/mL (3 mL) insulin pen 1 sliding scale dose SUBCUT TID ondansetron 4 mg tablet,disintegrating 4 mg PO Q8H PRN (Reason: nausea and vomiting) Qty: 10 0RF Follow-up/Referrals: Jeane,Kraig Fernandez MD [Primary Care Provider] -
[2024-08-27 20:21] LABS: Basophils Percent Auto 0.4 % (0.2-1.2); Eosinophils Absolute Auto 0.2 K/mm3 (0-0.3); Eosinophils Percent Auto 1.8 % (0-4.4); Hematocrit 38.7 % (42.0-52.0); Hemoglobin 12.2 g/dL (14.0-18.0); Immature Granulocyte Percent A 0.9 % (0-0.5); Lymphocytes Absolute Auto 1.48 K/mm3 (0.9-3.2); Lymphocytes Percent Auto 13.8 % (18.3-44.2); Mean Corpuscular HGB Conc 31.5 g/dl (32-36); Mean Corpuscular Volume 85.6 fl (80-100); Mean Platelet Volume 9.4 fl (7.4-10.4); Monocytes Absolute Auto 1.1 K/mm3 (0.1-0.6); Monocytes Percent Auto 10.6 % (2.6-8.5); Neutrophils Absolute Auto 7.8 K/mm3 (1.3-6.7); Neutrophils Percent Auto 72.5 % (45.5-73.1); Platelet Count Result 376 k/mm3 (150-375); Red Blood Count 4.52 M/mm3 (4.6-6.20); Red Cell Distribution Width 14.6 % (11.5-14.5); White Blood Count 10.8 K/mm3 (4.5-10.0)
[2024-08-27 20:32] LABS: Alanine Aminotransferase 16 U/L (6-50); Albumin Level 3.6 g/dL (3.5-5.1); Alkaline Phosphatase 128 U/L (38-126); Anion Gap 9 mmol/L (4-12); Aspartate Amino Transferase 22 U/L (17-59); Blood Urea Nitrogen 30 mg/dL (9-20); Calcium 8.9 mg/dL (8.4-10.2); Carbon Dioxide 23 mmol/L (22-30); Chloride 102 mmol/L (98-107); Estimated CRCL calculation 23 ml/min; Estimated Glomerular Filt Rate 28; Glucose 193 mg/dL (65-110); Lactic Acid Reflex 0.9 mmol/L (0.7-2.0); Lipase 44 U/L (23-300); Potassium 3.5 mmol/L (3.4-5.0); Sodium 134 mmol/L (137-145)
[2024-08-27 20:59] LABS: Influenza A QL RT-PCR Negative (Negative); Influenza B QL RT-PCR Negative (Negative); RSV RNA, RT-PCR Negative (Negative); SARS-CoV-2 RNA PCR Negative (Negative)
[2024-08-27 22:21] VITALS: BP 139/58; PULSE 108; RESP 20; O2SAT 100
--- OUTSIDE RECORDS SUMMARY | 2024-08-27 22:21 | XMS_ITS | Encounter Summary ---
Author Organization [facility] Healthcare Address [address] [place] [address] Care Team Providers Care Truck Technician Name Role Phone Kraig Ching MD Primary Care Provider Gautam Cope MD Unavailable Tramaine Roe MD Unavailable [phone] Sukhwinder Uribe MD Unavailable [phone] Shay Guillermo MD Unavailable [phone] Marsha Landis RN Unavailable Unavailab le Reason for Visit * Reason Onset Date Comments ZAK Questions 08/25/2024 Encounter Details Date Type Department Care Team (Late st Contact Info) Description 08/25/2024 Telephone [facility] [address] [facility] [address] [place] [address] Kraig Ching MD [address] [facility] [address] [place] [address] ZAK Questions Social History Tobacco Use Types Packs/Day Years Used Date Smoking Tobacco: Former Cigarettes 0.3 52 1 958 - 2010 Passive Smoke Exposure: Past Smokeless Tobacco: Never Comments:Smoking History Pac ks/day: 10 Cigarettes Alcohol Use Standard Drinks/Week Comments Yes 0 (1 standard drink = 0.6 oz pur e alcohol) Occasional glass of wine. [facility] Utilities Answer Date Recorded In [...] often do you attend chur ch or confucianism services? 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 Yes Date Admitted: 08/01/24 Date Discharged: 08/19/24 Facility Admitted To: [facility] Reason for Stay? Kidney issues If prescribed [...] General Goal - Patient establishes care with [facility] ACO Care Management On track(2023 1:22 PM DERRICK WORKER) Clarissa Arana, RN Note: Problem: Lack of [facility] communication Interventions: - Provide coordination between [facility] company and patient. - Ensure [facility] has appropriate referral and orders to establish care with patient. - Follow up with patient to ensure initial visit was completed by [facility] and that a [facility] plan has been started. ZAK General Goal - Patient schedules and keeps appointments with all recommended providers ACO Care Management Improving( 1:22 PM DERRICK WORKER) Clarissa Arana RN Note: Problem: Potential for [...] on filedocumented in this encounter Care Teams Truck Technician Relationship Specialty Start Date End Date Kraig Ching MD [address] [place] [address] PCP - General 07/10/16 Gautam Cope MD [address] [place] [address] Medical Oncologist/All Around Gear Machine Operator Medical Oncology 08/18/18 Tramaine Roe MD [address] [place] [address] Referring Physician Urology 08/18/18 Sukhwinder Uribe MD [address] [place] [address] Consulting Physician Urology 08/18/18 Shay Guillermo MD [address] [facility] [address] [place] [address] Referring Physician Urology 08/18/18 Marsha Landis, RN Registered Nurse 11/17/18 documented as of this encounter
--- OUTSIDE RECORDS SUMMARY | 2024-08-27 22:21 | XMS_ITS | Encounter Summary ---
Author Organization [facility] Address [address] [place] [address] Phone Care Team Providers Care Manager Sterile Name Role Phone Kraig Ching MD Primary Care Provider [phone] Gautam Cope MD Unavailable Tramaine Roe MD Unavailable [phone] Sukhwinder Uribe MD Unavailable [phone] Shay Guillermo MD Unavailable [phone] Marsha Landis RN Unavailable Unavailab Clarissa Harry RN Unavailable [phone] Encounter Details Date Type Department Care [...] file Legal 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 Gender Identity Not on file Sexual Orientation Not on file documented as of this encounter Functional Status documented as of this encounter Plan of Treatment Scheduled Orders Name Type Priority Associated Diagnoses Orde r Schedule CARDIOLOGY DOCUMENT SCAN Cardiac Services Ordered: 03/21/2023 documented as of this encounter Visit Diagnoses Not on filedocumented in this encounter Care Teams Manager Sterile Relationship Specialty Start Date End Date Kraig Ching MD [address] [facility] [address] [place] [address] PCP - General 07/10/16 Gautam Cope MD [address] [facility] [address] [place] [address] Medical Oncologist/Clinical Transformation Specialist Medical Oncology 08/18/18 Tramaine Roe MD [address] [facility] [address] [place] [address] Referring Physician Urology 08/18/18 Sukhwinder Uribe MD [address] [facility] [address] [place] [address] Consulting Physician Urology 08/18/18 Shay Guillermo MD [address] [facility] [address] [place] [address] Referring Physician Urology 08/18/18 Marsha Landis RN Registered Nurse 11/17/18 Clarissa Luna RN [address] [place] [address] [address] [place] [address] Laundromat Worker 04/04/24 04/26/24 documented as of this encounter
--- OUTSIDE RECORDS SUMMARY | 2024-08-27 22:21 | XMS_ITS | Clinical Summary ---
Author Organization [facility] Address [address] [place] [address] Care Team Providers Care Grinding Wheel Operator Name Role Phone Unavailable Primary Care Provider [...]
--- OUTSIDE RECORDS SUMMARY | 2024-08-27 22:21 | XMS_ITS | Encounter Summary ---
Author Organization [facility] Address [address] [place] [address] Phone Care Team Providers Care Automotive Welder Name Role Phone Kraig Ching MD Primary Care Provider [phone] Gautam Cope MD Unavailable Tramaine Roe MD Unavailable [phone] Sukhwinder Uribe MD Unavailable [phone] Shay Guillermo MD Unavailable [phone] Marsha Landis RN Unavailable Unavailab Ilene Kaur RN Unavailable [phone] Clarissa Luna RN Unavailable [phone] Encounter Details Date Type Department Care Team (Late st Contact Info) Description 12/06/2018 Telephone [facility] Oncology [address] [facility] Advanced Medicine 7th [place] [address] Salena Bryan NP [address] [place] [address] Social History Tobacco Use Types Packs/Day Years [...] file 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 Gender Identity Not on file Sexual Orientation Not on file documented as of this encounter Plan of Treatment Not on file documented as of this encounter Visit Diagnoses Not on filedocumented in this encounter Care Teams Automotive Welder Relationship Specialty Start Date End Date Kraig Ching MD [address] [place] [address] PCP - General 07/10/16 Gautam Cope MD [address] [place] [address] Medical Oncologist/Boat Operator Medical Oncology 08/18/18 Tramaine Roe MD [address] [place] [address] Referring Physician Urology 08/18/18 Sukhwinder Uribe MD [address] [place] [address] Consulting Physician Urology 08/18/18 Shay Guillermo MD [address] [place] [address] Referring Physician Urology 08/18/18 Marsha Landis, RN Registered Nurse 11/17/18 Ilene Fragoso RN [address] [place] [address] Lumber Sorter Machine 12/23/18 11/01/19 Clarissa Luna RN [address] [place] [address] Lumber Sorter Machine 04/04/24 04/26/24 documented as of this encounter
--- OUTSIDE RECORDS SUMMARY | 2024-08-27 22:21 | XMS_ITS | Encounter Summary ---
Author Organization [facility] Address [address] [place] [address] Phone Care Team Providers Care Hardboard Grinder Name Role Phone Kraig Ching MD Primary Care Provider [phone] Gautam Cope MD Unavailable Tramaine Roe MD Unavailable [phone] Sukhwinder Uribe MD Unavailable [phone] Shay Guillermo MD Unavailable [phone] Marsha Landis RN Unavailable Unavailab Clarissa Harry RN Unavailable [phone] Encounter Details Date Type Department Care Team (Late st Contact Info) Description 12/09/2021 Telephone [facility] Oncology [address] [facility] Advanced Medicine 7th [place] [address] [place] [address] Muna Saleem RN Social History [...] on file 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 Gender Identity Not on file Sexual Orientation Not on file documented as of this encounter Functional Status documented as of this encounter Plan of Treatment Not on file documented as of this encounter Visit Diagnoses Not on filedocumented in this encounter Care Teams Hardboard Grinder Relationship Specialty Start Date End Date Kraig Ching MD [address] [place] [address] PCP - General 07/10/16 Gautam Cope MD [address] [place] [address] Medical Oncologist/Oil Well Services Superintendent Medical Oncology 08/18/18 Tramaine Roe MD [address] [place] [address] Referring Physician Urology 08/18/18 Sukhwinder Urbie MD [address] [place] [address] Consulting Physician Urology 08/18/18 Shay Guillermo MD [address] [place] [address] Referring Physician Urology 08/18/18 Marsha Landis, RN Registered Nurse 11/17/18 Clarissa Luna RN [address] [place] [address] [address] [place] [address] Geothermal Operations Manager 04/04/24 04/26/24 documented as of this encounter
--- OUTSIDE RECORDS SUMMARY | 2024-08-27 22:21 | XMS_ITS | Encounter Summary ---
Author Organization [facility] Healthcare Address [address] [place] [address] Care Team Providers Care Clinical Material Handler Name Role Phone Kraig Ching MD Primary Care Provider [phone] Gautam Cope MD Unavailable Tramaine Roe MD Unavailable [phone] Sukhwinder Uribe MD Unavailable [phone] Shay Guillermo MD Unavailable [phone] Marsha Landis RN Unavailable Unavailab le Encounter Details Date Type Department Care Team (Late st Contact Info) Description 07/21/2024 Results Follow-Up [facility] Medical [facility] Convenient Care at [address] [address] Fadi Corrales NP [address] [place] [address] [address] [place] [address] Urine culture Urine, clean voided Social History Tobacco Use Types Packs/Day Years Used Date Smoking Tobacco: Former Cigarettes 0.3 52 1 958 - 2010 Passive Smoke Exposure: Past Smokeless Tobacco: Never Comments:Smoking History Pac ks/day: 10 Cigarettes Alcohol Use Standard Drinks/Week Comments Yes 0 (1 standard drink = 0.6 oz pur e alcohol) Occasional glass of wine. [facility] Utilities Answer Date Recorded In the past 12 months has [employer] electric, gas, oil, or water company threatened [...] often do you attend chur ch or voodoo services? 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 Author ZAK General Goal - Patient establishes care with [facility] ACO Care Management On track(2023 1:22 PM MOTTLE LAY UP OPERATOR) No Clarissa Luna RN Note: Problem: Lack of [facility] communication Interventions: - Provide coordination between [facility] company and patient. - Ensure [facility] has appropriate referral and orders to establish care with patient. - Follow up with patient to ensure initial visit was completed by [facility] and that a [facility] plan has been started. ZAK General Goal - Patient schedules and keeps appointments with all recommended providers ACO Care Management Improving( 1:22 PM MOTTLE LAY UP OPERATOR) No Clarissa Luna RN Note: Problem: [...] filedocumented in this encounter Care Teams Clinical Material Handler Relationship Specialty Start Date End Date Kraig Ching MD [address] [facility] [address] [place] [address] PCP - General 07/10/16 Gautam Cope MD [address] [facility] [address] [place] [address] Medical Oncologist/Athletic Director Medical Oncology 08/18/18 Tramaine Roe MD [address] [facility] [address] [place] [address] Referring Physician Urology 08/18/18 Sukhwinder Uribe MD [address] [facility] [address] [place] [address] Consulting Physician Urology 08/18/18 Shay Guillermo MD [address] [facility] [address] [place] [address] Referring Physician Urology 08/18/18 Marsha Landis, RN Registered Nurse 11/17/18 documented as of this encounter
--- OUTSIDE RECORDS SUMMARY | 2024-08-27 22:21 | XMS_ITS | Encounter Summary ---
Author Organization [facility] Healthcare Address [address] [place] [address] Care Team Providers Care Manager Food Safety Name Role Phone Kraig Ching MD Primary Care Provider [phone] Gautam Cope MD Unavailable Tramaine Roe MD Unavailable [phone] Sukhwinder Uirbe MD Unavailable [phone] Shay Guillermo MD Unavailable [phone] Marsha Landis RN Unavailable Unavailab le Reason for Visit * Reason Onset Date Comments Medical Question/Miscellaneous 08/21/2024 Encounter Details Date Type Department Care Team (Late st Contact Info) Description 08/21/2024 Telephone [facility] [address] [facility] [address] [address] Kraig Ching MD [address] [facility] [address] [place] [address] Medical Question/Miscellaneous Social History Tobacco Use Types Packs/Day Years Used Date Smoking Tobacco: Former Cigarettes 0.3 52 1 958 - 2010 Passive Smoke Exposure: Past Smokeless Tobacco: Never Comments:Smoking History Pac ks/day: 10 Cigarettes Alcohol Use Standard Drinks/Week Comments Yes 0 (1 standard drink = 0.6 oz pur e alcohol) Occasional glass of wine. [facility] Utilities Answer Date Recorded In the past 12 months has [employer] electric, gas, oil, or water company threatened [...] often do you attend chur ch or baptism services? Never 04/04/2024 Do you belong to [...] any time in the past 12 m [facility], were you homeless or living in a alf (including now)? No 04/04/2024 Personal Safety Answer Date Recorded Have you ever been in or are you currently in a harmful physical or emotional relationship or is someone making you feel afraid or unsafe? 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 He can uber however it is too expensive and hewill be going 3 days a week and has not issues with driving and drives to Dr. Encarnacion office oftenand they advised him that he will need something from provider advising he can drive to the location for rehab. Patient would like a call to discuss further.The rehab center is located at [address] [place] [id number] Does message need to be routed? Yes-Action Needed documented in this encounter Plan of Treatment Not on file documented as of this encounter Goals Goal Patient Goal Type Associated Problems Recent Progress Patient-Stated? Author ZAK General Goal - Patient establishes care with [facility] ACO Care Management On track(2023 1:22 PM MERCHANDISING INTERN) No Clarissa Luna RN Note: Problem: Lack of [facility] communication Interventions: - Provide coordination between [facility] company and patient. - Ensure [facility] has appropriate referral and orders to establish care with patient. - Follow up with patient to ensure initial visit was completed by [facility] and that a [facility] plan has been started. ZAK General Goal - Patient schedules and keeps appointments with all recommended providers ACO Care Management Improving( 1:22 PM MERCHANDISING INTERN) Clarissa Arana RN Note: Problem: Potential for [...] filedocumented in this encounter Care Teams Manager Food Safety Relationship Specialty Start Date End Date Kraig Ching MD [address] [place] [address] PCP - General 07/10/16 Gautam Cope MD [address] [place] [address] Medical Oncologist/Journeyman Wireman Medical Oncology 08/18/18 Tramaine Roe MD [address] [place] [address] Referring Physician Urology 08/18/18 Sukhwinder Uribe MD [address] [place] [address] Consulting Physician Urology 08/18/18 Shay Guillermo MD [address] [place] [address] Referring Physician Urology 08/18/18 Marsha Landis, RN Registered Nurse 11/17/18 documented as of this encounter
--- OUTSIDE RECORDS SUMMARY | 2024-08-27 22:21 | XMS_ITS | Encounter Summary ---
Author Organization [facility] Healthcare Address [address] [place] [address] Care Team Providers Care Burnisher And Bumper Name Role Phone Kraig Ching MD Primary Care Provider [phone] Gautam Cope MD Unavailable Tramaine Roe MD Unavailable [phone] Sukhwinder Uribe MD Unavailable Shay Guillermo MD Unavailable [phone] Marsha Landis RN Unavailable Unavailab le Reason for Visit * Reason Onset Date Comments Medical Question/Miscellaneous 08/24/2024 Encounter Details Date Type Department Care Team (Late st Contact Info) Description 08/24/2024 Telephone [facility] [address] [facility] [address] [place] [address] Kraig Ching MD [address] [facility] [address] [place] [address] Medical Question/Miscellaneous Social History Tobacco Use Types Packs/Day Years Used Date Smoking Tobacco: Former Cigarettes 0.3 52 1 958 - 2010 Passive Smoke Exposure: Past Smokeless Tobacco: Never Comments:Smoking History Pac ks/day: 10 Cigarettes Alcohol Use Standard Drinks/Week Comments Yes 0 (1 standard drink = 0.6 oz pur e alcohol) Occasional glass of wine. [facility] Utilities Answer Date Recorded In the past 12 months has [employer] electric, gas, oil, or water company threatened [...] often do you attend chur ch or hoahaoism services? 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 - Ensure [facility] has appropriate referral and orders to establish care with patient. - Follow up with patient to ensure initial visit was completed by [facility] and that a [facility] plan has been started. ZAK General Goal - Patient schedules and keeps appointments with all recommended providers ACO Care Management Improving( 1:22 PM POKER IN) No Clarissa Luna RN Note: Problem: Potential [...] on filedocumented in this encounter Care Teams Burnisher And Bumper Relationship Specialty Start Date End Date Kraig Ching MD [address] [place] [address] PCP - General 07/10/16 Gautam Cope MD [address] [place] [address] Medical Oncologist/Burn Table Operator Medical Oncology 08/18/18 Tramaine Roe MD [address] [place] [address] Referring Physician Urology 08/18/18 Sukhwinder Uribe MD [address] [place] [address] Consulting Physician Urology 08/18/18 Shay Guillermo MD [address] [facility] [address] [place] [address] Referring Physician Urology 08/18/18 Marsha Landis, RN Registered Nurse 11/17/18 documented as of this encounter
[2024-08-27] MEDS: SODIUM CHLORIDE 0.9% IV 1,000 ML 999 ML IV CONT (22:22)
[2024-08-27] MEDS: ONDANSETRON INJ 4 MG/2 ML VIAL IV PUSH (22:22)
--- OUTSIDE RECORDS SUMMARY | 2024-08-27 22:22 | XMS_ITS | Clinical Summary ---
Author Organization [facility] Address [address] [place] [address] Care Team Providers Care Varying Exceptionalities Teacher Name Role Phone Kraig Ching MD Primary Care Provider [phone] Gautam Cope MD Unavailable Tramaine Roe MD Unavailable [phone] Sukhwinder Uribe MD Unavailable [phone] Shay Guillermo MD Unavailable [phone] Marsha Landis RN Unavailable Unavailab le Allergies [...] 05/30/2024 Assessment & Plan (06/08/2024 4:46 AM [employer]MENT[employer]IPAL): Continue current regimen.Limit nephrotoxins.Reviewed creatinine. Avoid NSAIDS. [...] 03/08/2023 Assessment & Plan (06/08/2024 4:46 AM ELEMENT[employer]CHO[employer] PRINCIPAL): Hypertension is controlled. Continue current regimen. Assessment & Plan (10/05/2023 12:54 PM CDT): Hypertension is controlled. Decrease carvedilol to 12.5 mg. Assessment & Plan (03/08/2023 7:11 AM [employer]MENT[employer] PRINCIPAL): Hypertension is controlled. Continue current regimen. 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 Avoid NSAIDS. Assessment & Plan (10/05/2023 5:50 AM CDT): Continue current regimen.Limit nephrotoxins.Reviewed creatinine. Avoid NSAIDS. Assessment & Plan (03/08/2023 7:12 AM [employer]MENT[employer] PRINCIPAL): Continue current regimen.Limit nephrotoxins.Reviewed creatinine. Avoid NSAIDS. CKD (chronic kidney disease) 03/08/2022 Assessment & Plan (06/08/2024 4:45 AM ELEMENT[employer] PRINCIPAL): Limit nephrotoxins. Monitor creatinine. Avoid NSAIDS.Follow with Nephrology. Anemia in stage 3b chronic kidney disease 2021 Gastroesophageal reflux disease 04/08/2021 Assessment & Plan (03/08/2023 11:17 AM [employer]MENT[employer] PRINCIPAL): Reviewed dietary modifications. Continue PPI. Assessment & Plan (08/18/2022 6:36 AM CDT): Reviewed dietary modifications. Continue PPI. Assessment & Plan (02/12/2022 6:03 AM CDT): Reviewed dietary modifications. Continue PPI. Assessment & Plan (04/08/2021 5:55 AM ELEMENT[employer] PRINCIPAL): Reviewed dietary modifications. Continue PPI. 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 Continue home PT exercises. Advised using a walker. Assessment & Plan (08/18/2022 11:47 AM CDT): Continue oxycodone. Continue home PT exercises. Advised using a walker. Assessment & Plan (02/12/2022 11:41 AM CDT): Continue oxycodone. Continue home PT exercises. A prescription for a walker. Assessment & Plan (04/08/2021 5:55 AM ELEMENT[employer] PRINCIPAL): Continue oxycodone. Continue home PT exercises. Continue walker. Assessment & Plan (12/26/2020 10:48 AM CDT): Continue oxycodone. Script for walker. Assessment & Plan (09/26/2020 11:29 AM CDT): Continue ROM exercises and follow with Pain Management. Refill oxycodone as needed. Prostate cancer 09/06/2018 Assessment & Plan (06/08/2024 4:46 AM ELEMENTARY [employer] PRINCIPAL): Follow with Oncology. Continue Zytiga. Assessment & [...] 01/25/2018 Assessment & Plan (03/07/2018 6:54 AM ELEMENTARY SCHO[employer] PRINCIPAL): Hypertension is controlled. Continue current regimen. CHF [...] creatinine. Assessment & Plan (04/08/2021 5:54 AM ELEMENTARY S[employer]OL PRINCIPAL): Hypertension is controlled. Continue current regimen.Limit nephrotoxins. [...] NSAIDS. Assessment & Plan (03/07/2018 6:55 AM ELEMENT[employer] S[employer] PRINCIPAL): Hypertension is controlled. Continue current regimen. Limit nephrotoxins. Monitor creatinine. Avoid NSAIDS. Assessment & Plan (11/25/2017 7:09 AM CDT): Limit nephrotoxins. Monitor creatinine. Avoid NSAIDS. Duodenal ulcer 11/25/2017 Assessment & Plan (11/25/2017 10:16 AM CDT): Reviewed GI note . Continue pantoprazole. Avoid NSAIDS. Refer for EGD. PAF (paroxysmal atrial fibrillation) 10/22/2017 Assessment & Plan (03/07/2018 6:54 AM ELEMENTARY S[employer]OL PRINCIPAL): Continue rate control. Continue anticoagualtion. Anticipate starting [...] NSAIDS. Assessment & Plan (03/07/2018 6:55 AM ELEMENTARY SCHOOL PRINCIPAL): Limit nephrotoxins. Monitor creatinine. Avoid NSAIDS. Assessment [...] diet. Assessment & Plan (04/08/2021 10:17 AM ELEMENTARY SCHOOL PRINCIPAL): Reviewed HgBA1C elevated at 10.6 on 04/01/21. [...] therapy. Assessment & Plan (03/07/2018 6:57 AM ELEMENTARY SCHOOL PRINCIPAL): Continue pravastatin. He had myalgias on other [...] diet. Assessment & Plan (03/02/2017 6:53 AM ELEMENTARY [employer]OL PRINCIPAL): Hypertension is controlled. Continue current regimen. Reviewed low sodium diet. Assessment & Plan (01/15/2017 6:44 AM CDT): Reviewed proper diet. Continue statin therapy. Hyperlipidemia 01/12/2012 Assessment & Plan (06/08/2024 4:46 AM ELEMENTARY S[employer]OL PRINCIPAL): Continue pravastatin. Order lipid panel at next [...] 05/28/2023 Assessment & Plan (03/08/2023 11:40 AM ELEMENTARY SCHOOL PRINCIPAL): Agree with cataract surgery. He has 1st [...] 08/30/2017 Assessment & Plan (03/02/2017 10:48 AM ELEMENTARY SCHOOL PRINCIPAL): Mood is improved. Monitor off medication. Impotence [...] 200. Assessment & Plan (03/07/2018 6:56 AM ELEMENTARY S[employer]OL PRINCIPAL): Continue current regimen. Advised annual eye exam.Limit nephrotoxins. Monitor creatinine. Avoid NSAIDS. Assessment & Plan (11/25/2017 10:16 AM CDT): Continue current regimen and add Januvia.Advised annual eye exam. Limit nephrotoxins. Monitor creatinine. Avoid NSAIDS. Assessment & Plan (01/15/2017 6:44 AM CDT): Continue current regimen. Advised annual eye exam. Reviewed proper diet. Continue statin therapy. Encounters Date Type Department Care Team Description 08/25/[address] [phone] Kraig Ching MD ZAK Questions 08/24/[address] [address] Kraig Ching MD Medical Question/Miscellaneous 08/21/[address] [phone] Kraig Ching MD Additional Services Or Orders 08/21/2024 [employer] [address] [address] Kraig Ching MD Medical Question/Miscellaneous 07/31/2024 Orders Only [facility] Health Information Management [address] [place] [address] Scanning, Provider 07/24/2024 Telephone [facility] Oncology [facility] Floor [address] [place] [address] Gautam Cope MD 07/22/2024 Orders Only [facility] Health Information Management [address] [place] [address] Scanning, Provider 07/21/2024 Results Follow-Up [facility] at [address] [address] Fadi Corrales NP Urine culture Urine, clean voided 07/19/2024 7:45 PM CDT - 07/19/2024 11:59 PM CDT Hospital Encounter [address] [address] Urinary frequency Discharge Disposition: Discharge to home or self care 07/19/2024 2:00 PM CDT Office Visit [facility] at [address] [address] Clau Childers PA Urinary frequency (Primary Dx); Leukocytosis, unspecified type 07/18/2024 1:45 PM CDT Infusion [facility] - Infusion [address] [facility] Floor [address] [place] [address] Prostate cancer (HCC) (Primary Dx) 07/18/2024 1:00 PM CDT Office Visit [facility] Oncology [facility] Floor [address] [place] [phone] Gautam Cope MD Prostate cancer (HCC) (Primary Dx) 07/18/2024 12:00 PM CDT Lab [facility] - Lab Collection [address] [facility] Floor [address] [place] [address] Prostate cancer (HCC) 07/18/2024 Patient Self-Triage [facility] [address] [place] [address] Mychart, Generic Provider 07/01/2024 Orders Only [facility] Health Information Management [address] [place] [address] Scanning, Provider 06/14/2024 6:15 PM [employer]MENT[employer] PRINCIPAL Lab [facility] ([facility]) [address] [place] [phone] GABRIELA (acute kidney injury) 06/14/2024 3:00 PM [employer]LEMENT[employer] PRINCIPAL Office Visit [facility] Nephrology [address] [facility] 5th [place] [address] [place] [address] Lin Guerrero MD Chronic kidney disease, stage 3b (HCC) (Primary Dx); GABRIELA (acute kidney injury); Hypertension, essential; Secondary hyperparathyroidism of renal origin 06/08/2024 12:00 PM ELEMENT[employer] S[employer]OL PRINCIPAL Lab [facility] ([facility]) [address] [place] [phone] Anemia in stage 3b chronic kidney disease (HCC); Hypertension, essential; Secondary hyperparathyroidism of renal origin; Stage 3 chronic kidney disease, unspecified whether stage 3a or 3b CKD (HCC); Primary hypertension; Vitamin D deficiency; Type 2 diabetes mellitus with stage 3a chronic kidney disease, with long-term current use of insulin (HCC); Fatigue, unspecified type; GABRIELA (acute kidney injury) 06/08/2024 9:45 AM ELEMENTARY SCHOOL PRINCIPAL Office Visit [facility] [address] [facility] [address] [place] [address] Kraig Ching MD Hypertension, essential (Primary Dx); [...] 01/17/2019 Influenza, Unspecified 01/17/2019(Deferred: Daisy ent Refused) Intacct (J&J) SARS-CoV-2 Vaccination 06/14/2020, 06/14/2020 Payfone SARS-CoV-2 Monovalent Vaccination (12+ Yrs) PURPLE 03/05/2021,02/22/2021 [...] pur e alcohol) Occasional glass of wine. [facility] Utilities Answer Date Recorded In the past 12 months has [employer], gas, oil, or water company threatened to [...] often do you attend chur ch or hindu services? Never 04/04/2024 Do you belong to any clubs o r organizations such as baptist groups, unions, fraternal or athletic groups, or [...] any time in the past 12 m [facility], were you homeless or [...] on file Legal Sex Male 4:46 PM ELEMENTARY SCHO[employer] PRINCIPAL Gender Identity Not on file Sexual Orientation [...] cm (5' 9 ) 06/14/2024 2:58 PM ELEMENTARY SCHOOL PRINCIPAL Body Mass Index 29.98 06/14/2024 2:58 PM ELEMENTARY SCHOOL PRINCIPAL Plan of Treatment Health Maintenance Due Date [...] Patient establishes care with [facility] ACO Care Management On track(2023 1:22 PM ELEMENTARY S[employer]OL PRINCIPAL) No Gain, Clarissa Castellanos RN Note: Problem: Lack of [facility] communication Interventions: - Provide coordination between [facility] company and patient. - Ensure [facility] has appropriate referral and orders to establish care with patient. - Follow up with patient to ensure initial visit was completed by [facility] and that a [facility] plan has been started. ZAK General Goal - Patient schedules and keeps appointments with all recommended providers ACO Care Management Improving( 1:22 PM ELEMENTARY SCHOOL PRINCIPAL) No Clarisas Luna RN Note: Problem: Potential for medical [...] medication regimen. Medical Devices Implanted Type Area Carpet Finishing Supervisor Device Identifier Shelf Expiration Date Model / Serial / Lot [employer] Lens Iol Cna0t0.195 [employer] Cna0t0.195 - [id number] - [id number] Implanted:Qty: 1 on 06/09/2023 by Higinio Connolly MD at [facility] Lens Right: Eye [employer] [id number] 10/27/2025 CNA0T0.19 5 / [id number] / [employer] Lens Iol Cna0t0.200 [employer] [facility] Autonom Cna0t0.200 - [id number] - [id number] Implanted:Qty: 1 on 05/19/2023 by Higinio Connolly MD at [facility] Left: Eye [employer] [id number] 10/06/2025 CNA0T0.20 0 / [id number] / Procedures Procedure Name Priority Date/Time [...] AM CDT EGFR Routine 06/14/2024 3:48 PM ELEMENTARY SCHOOL PRINCIPAL GABRIELA (acute kidney injury) RENAL FUNCTION PANEL Routine 06/14/2024 3:48 PM ELEMENTARY S[employer] PRINCIPAL GABRIELA (acute kidney injury) URINALYSIS AND REFLEX TO MICROSCOPIC Routine 06/08/2024 10:47 AM ELEMENTARY SCHOOL PRINCIPAL Anemia in stage 3b chronic kidney disease (HCC) Hypertension, essential Secondary hyperparathyroidism of renal origin Stage 3 chronic kidney disease, unspecified whether stage 3a or 3b CKD (HCC) Primary hypertension Vitamin D deficiency Type 2 diabetes mellitus with stage 3a chronic kidney disease, with long-term current use of insulin (HCC) Fatigue, unspecified type GABRIELA (acute kidney injury) EGFR Routine 06/08/2024 10:44 AM E[employer]MENTARY [employer] PRINCIPAL Anemia in stage 3b chronic kidney disease (HCC) Hypertension, essential Secondary hyperparathyroidism of renal origin Stage 3 chronic kidney disease, unspecified whether stage 3a or 3b CKD (HCC) Primary hypertension Vitamin D deficiency Type 2 diabetes mellitus with stage 3a chronic kidney disease, with long-term current use of insulin (HCC) Fatigue, unspecified type GABRIELA (acute kidney injury) DIFFERENTIAL AUTO Routine 06/08/2024 10:44 AM ELEMENTARY SCHOOL PRINCIPAL Anemia in stage 3b chronic kidney disease [...] RENAL FUNCTION PANEL Routine 06/08/2024 10:44 AM ELEMENTARY SCHOOL PRINCIPAL Anemia in stage 3b chronic kidney disease [...] D 25 HYDROXY Routine 06/08/2024 10:44 AM ELEMENTARY SCHOOL PRINCIPAL Anemia in stage 3b chronic kidney disease [...] WITH AUTO DIFFERENTIAL Routine 06/08/2024 10:44 AM ELEMENTARY SCHOOL PRINCIPAL Anemia in stage 3b chronic kidney disease (HCC) Hypertension, essential Secondary hyperparathyroidism of renal origin Stage 3 chronic kidney disease, unspecified whether stage 3a or 3b CKD (HCC) Primary hypertension Vitamin D deficiency Type 2 diabetes mellitus with stage 3a chronic kidney disease, with long-term current use of insulin (HCC) Fatigue, unspecified type GABRIELA (acute kidney injury) PTH Routine 06/08/2024 10:44 AM ELEMENTARY SCHOOL PRINCIPAL Anemia in stage 3b chronic kidney disease [...] RATIO, URINE, RANDOM Routine 06/08/2024 10:44 AM ELEMENTARY SCHOOL PRINCIPAL Anemia in stage 3b chronic kidney disease (HCC) Hypertension, essential Secondary hyperparathyroidism of renal origin Stage 3 chronic kidney disease, unspecified whether stage 3a or 3b CKD (HCC) Primary hypertension Vitamin D deficiency Type 2 diabetes mellitus with stage 3a chronic kidney disease, with long-term current use of insulin (HCC) Fatigue, unspecified type GABRIELA (acute kidney injury) LIPID PANEL Routine 03/08/2023 11:55 AM ELEMENTARY SCHOOL PRINCIPAL Hyperlipidemia, unspecified hyperlipidemia type ALBUMIN CREATININE RATIO, [...] Large Ketones, ur, POC Negative Negative Specific [place], POC 1.015 1.003 - 1.030 Blood, ur, POC Hemolyzed, trace(A) Negative pH, ur, POC 6.0 5.0 - 8.0 Protein, ur, POC 30.(A) Negative Urobilinogen, urine, POC 0.2 0.2 - 1.0 mg/dL Nitrite, ur, POC Negative Negative Leukocytes, ur, POC Negative Negative Lot Number [id number] Urine 07/19/2024 2:16 PM CDT Clau [facility] POINT OF CARE TEST ORDER ALAN Final Result * Urine culture Urine, clean voided (07/19/2024 12:00 PM CDT) Report Final Report: No growth Comment:Testing performed by : [facility], [address] [place]., [address] Urine, clean voided 07/19/2024 12:00 PM CDT 07/20/2024 2:19 AM CDT Narrative MERLINE Conrad 07/21/2024 7:38 AM CDT Testing performed by [facility] Microbiology Laboratory ([phone]) Clau [facility] LAB MICROBIOLOGY - GENER AL ORDERABLES Final Result MERLINE [address] [place] [address] * (ABNORMAL) eGFR (07/18/2024 12:07 PM CDT) [...] Final Resul t [facility] [place] [address] * (ABNORMAL) Differential, auto (07/18/2024 12:07 PM CDT) Neutrophil abs 17.55(H) 1.50 - 6.50 K/cumm Comment:Testing performed by : [facility], [address] [place] [address] Lymphocyte abs 0.96 0.80 - 3.30 K/cumm [facility] Comment:Testing performed by : [facility], [address] [place], [place] [id number] Monocyte abs 1.48(H) 0.20 - 0.80 K/cumm [facility] Comment:Testing performed by : [facility], [address] [place], [place] [id number] Eosinophil abs 0.06 0.00 - 0.50 K/cumm [facility] Comment:Testing performed by : [facility], [address] [place] [phone] Basophil abs 0.03 0.00 - 0.10 K/cumm [facility] Comment:Testing performed by : [facility], [address] [place] [phone] Neutrophil pct 87.4 % CERNER [facility] Comment: Interpretive Data Percent cell count reference ranges are not reported, since discordance with absolute values may lead to misinterpretation of CBC data. Current Interpretive Data was last revised on 2017. Testing performed by: [facility], [address] [place] [phone] Lymphocyte pct 4.8 % CERNER [facility] Comment: Interpretive Data Percent cell count reference ranges are not reported, since discordance with absolute values may lead to misinterpretation of CBC data. Current Interpretive Data was last revised on 2017. Testing performed by: [facility], [address] [place] [phone] Monocyte pct 7.4 % MERLINE PERDOMO Comment: Interpretive Data Percent cell count reference ranges are not reported, since discordance with absolute values may lead to misinterpretation of CBC data. Current Interpretive Data was last revised on 2017. Testing performed by: [facility], [address] [place] [phone] Eosinophil pct 0.3 % MERLINE PERDOMO Comment: Interpretive Data Percent cell count reference ranges are not reported, since discordance with absolute values may lead to misinterpretation of CBC data. Current Interpretive Data was last revised on 2017. Testing performed by: [facility], [address] [place] [phone] Basophil pct 0.2 % MERLINE PERDOMO Comment: Interpretive Data Percent cell count reference ranges are not reported, since discordance with absolute values may lead to misinterpretation of CBC data. Current Interpretive Data was last revised on 2017. Testing performed by: [facility], [address] [place] [phone] Blood 07/18/2024 12:0 7 PM CDT 07/18/2024 12:22 PM CDT us Gautam Cope MD LAB BLOOD ORDERABLES Final Resul t MERLINE PERDOMO [facility] [place] [address] * (ABNORMAL) CBC with auto differential (07/18/2024 12:07 PM CDT) WBC 20.09(H) 3.80 - 9.90 K/cumm Comment:Testing performed by : [facility], [address] [place] [phone] Hgb 12.1(L) 13.0 - 17.5 g/dL MERLINE PERDOMO Comment:Testing performed by : [facility], [address] [place], [place] [id number] Hct 38.2(L) 38.9 - 50.3 % CERNER BJ Comment:Testing performed by : [facility], [address] [place] [address] Plt 451(H) 150 - 400 K/cumm C[facility]ER [facility]J Comment:Testing performed by : [facility], [address] [place], [place] [id number] MPV 7.7 6.8 - 10.4 fL C[facility]ER BJ Comment:Testing performed by : [facility], [address] [place], [place] [phone] RBC 4.46 4.30 - 5.80 M/cumm [facility]J Comment:Testing performed by : [facility], [address] [place], [place] [id number] MCV 85.5 81.3 - 96.4 fL C[facility]ER BJ Comment:Testing performed by : [facility], [address] [place], [place] [id number] MCH 27.1 27.1 - 33.3 pg C[facility]ER BJ Comment:Testing performed by : [facility], [address] [place] [address] MCHC 31.7(L) 32.3 - 35.7 g/dL C[facility]ER BJ Comment:Testing performed by : [facility], [address] [place] [address] RDW CV 14.9 11.1 - 14.9 % C[facility]ER BJ Comment:Testing performed by : [facility], [address] [place] [address] NRBC abs 0.00 0.00 - 0.01 K/cumm [facility] Comment:Testing performed by : [facility], [address] [place] [address] Blood 07/18/2024 12:0 7 PM CDT 07/18/2024 12:22 PM CDT us Gautam Cope MD LAB BLOOD ORDERABLES Final Resul t Performing Organization Address [facility] Co de Phone Number MERLINE [facility] [place] [address] * PSA diagnostic (07/18/2024 12:07 PM CDT) [...] ORDERABLES Final Resul t Performing Organization Address [facility] Co de Phone Number MERLINE [facility] [address] * Lactate dehydrogenase (LD) (07/18/2024 12:07 PM CDT) Lactate dehydrogenase (LDH) 216 100 - 250 Units/L Blood 07/18/2024 12:0 7 PM CDT 07/18/2024 12:25 PM CDT Gautam Cope MD LAB BLOOD ORDERABLES Final Resul t Performing Organization Address [facility] Co de Phone Number MERLINE [facility] [address] * (ABNORMAL) Hemoglobin A1c (07/18/2024 12:07 PM [...] Final Resul t [facility] [place] [address] * (ABNORMAL) Comprehensive metabolic panel (07/18/2024 12:07 [...] Protein, pl 6.7 6.5 - 8.5 g/dL [facility] Albumin 4.0 3.5 - 5.0 g/dL [facility] Alk phos 126 40 - 130 Units/L C[facility]ER [facility] ALT 10 7 - 55 Units/L [facility] AST 13 10 - 50 Units/L [facility] Blood 07/18/2024 12:0 7 PM CDT 07/18/2024 12:25 PM CDT Gautam Cope MD LAB BLOOD ORDERABLES Final Resul t [facility] [place] [address] * SCAN - RADIOLOGY/IMAGING (07/01/2024 9:44 AM CDT) Anatomical Region Laterality Modality Other us Provider Scanning Final Result * (ABNORMAL) eGFR (06/14/2024 3:48 PM [employer]IPAL) eGFR 26(L) >=60 mL/min/1. 73 m2 Comment: [...] last reviewed 2021. Blood 06/14/2024 3:48 PM [employer]MENT[employer] PRINCIPAL 06/14/2024 4:07 PM [employer] PRINCIPAL Lin Guerrero MD LAB BLOOD ORDERABLES Final Resul t Performing Organization Address City/[facility]/ZIP Co de Phone Number MERLINE [facility] [place] [address] * (ABNORMAL) Renal function panel (06/14/2024 3:48 PM E[employer] PRINCIPAL) Sodium 143 135 - 145 mmol/L Potassium, [...] [facility] Blood 06/14/2024 3:48 PM E[employer]MENT[employer] S[employer]OL PRINCIPAL 06/14/2024 4:03 PM [employer] PRINCIPAL Lin Guerrero MD LAB BLOOD ORDERABLES Final Resul t Performing Organization Address [facility]/ZIP Co de Phone Number MERLINE [facility] [place] [address] * Urinalysis reflex to microscopic (06/08/2024 10:47 AM E[employer]MENT[employer]INCIPAL) Color, ur Straw Yellow Clarity, ur Clear [...] tendency for uric acid stone formation. Source: [facility] Current Interpretive Data was last revised on 2017 Protein, ur ql Trace Negative [facility] Glucose, ur ql Negative Negative [facility] Ketones, ur Negative Negative [facility] Bilirubin, ur Negative Negative [facility] Blood, ur Negative Negative [facility] Urobilinogen, ur <2.0 <2.0 mg/dL [facility] Nitrite, ur Negative Negative [facility] Leukocyte esterase, ur Negative Negative [facility] UA reflex comment Reflex conditions for microscopic UA not met. [facility] Urine 06/08/2024 10:4 7 AM [employer] 06/08/2024 11:41 AM [employer] us Lin Guerrero MD LAB URINE ORDERABLES Final Resul t [facility] [place] [address] * (ABNORMAL) eGFR (06/08/2024 10:44 AM [employer]) eGFR 22(L) >=60 mL/min/1. 73 m2 Comment: [...] reviewed 2021. Blood 06/08/2024 10:4 4 AM [employer] 06/08/2024 11:23 AM [employer] us Lin Guerrero MD LAB BLOOD ORDERABLES Final Resul t [facility] [place] [address] * (ABNORMAL) Differential, auto (06/08/2024 10:44 AM [employer]) Neutrophil abs 7.8(H) 1.5 - 6.5 K/cumm Imm gran abs 0.1 0.0 - 0.1 K/cumm [facility] Lymphocyte abs 1.9 0.8 - 3.3 K/cumm [facility] Monocyte abs 1.0(H) 0.2 - 0.8 K/cumm [facility] Eosinophil abs 0.1 0.0 - 0.5 K/cumm [facility] Basophil abs 0.0 0.0 - 0.1 K/cumm [facility] Neutrophil pct 71.1 % [facility] [...] revised on 2017. Eosinophil pct 1.3 % [facility] Comment: Interpretive Data Percent cell count reference ranges are not reported, since discordance with absolute values may lead to misinterpretation of CBC data. Current Interpretive Data was last revised on 2017. Basophil pct 0.4 % [facility] Comment: Interpretive Data Percent cell count reference ranges are not reported, since discordance with absolute values may lead to misinterpretation of CBC data. Current Interpretive Data was last revised on 2017. Blood 06/08/2024 10:4 4 AM [employer] 06/08/2024 11:23 AM [employer] us Lin Guerrero MD LAB BLOOD ORDERABLES Final Resul t [facility] [place] [address] * (ABNORMAL) CBC with auto differential (06/08/2024 10:44 AM [employer]) WBC 11.0(H) 3.8 - 9.9 K/cumm Hgb [...] [facility] Blood 06/08/2024 10:4 4 AM [employer] 06/08/2024 11:23 AM [employer] us Lin Guerrero MD LAB BLOOD ORDERABLES Final Resul t Performing Organization Address [facility] de Phone Number [facility] [place] [address] * (ABNORMAL) Protein / creatinine ratio, urine, random (06/08/2024 10:44 AM [employer]) Protein, ur, quant 21.3 mg/dL Comment: Interpretive Data No reference range established. Current interpretive data was last revised 2018. Creatinine Ur 52.2 mg/dL [facility] Comment: Interpretive Data No reference range established. Current interpretive data was last revised 2018. Protein/creatinin e ratio 408.0(H) 0.0 - 180.0 mg/g CR [facility] Urine 06/08/2024 10:4 4 AM [employer] 06/08/2024 11:23 AM [employer] us Lin Guerrero MD LAB URINE ORDERABLES Final Resul t Performing Organization Address [facility] de Phone Number [facility] Department [place] [address] * Vitamin D 25 hydroxy (06/08/2024 10:44 AM [employer]) Vitamin D 25-OH 42 30 - 80 ng/mL Blood 06/08/2024 10:4 4 AM [employer] 06/08/2024 11:23 AM [employer] Lin Guerrero MD LAB BLOOD ORDERABLES Final Resul t Performing Organization Address [facility] de Phone Number [facility] Department [place] [address] * (ABNORMAL) PTH (06/08/2024 10:44 AM [employer]) PTH 78(H) 15 - 65 pg/mL Blood 06/08/2024 10:4 4 AM [employer] 06/08/2024 11:23 AM [employer] Lin Guerrero MD LAB BLOOD ORDERABLES Final Resul t [facility] [place] [address] * (ABNORMAL) Renal function panel (06/08/2024 10:44 AM [employer]) Sodium 142 135 - 145 mmol/L Potassium, [...] [facility] Blood 06/08/2024 10:4 4 AM [employer] 06/08/2024 11:23 AM [employer] us Lin Guerrero MD LAB [facility]LOOD ORDERABLES [facility] [place] [address] * (ABNORMAL) Lipid panel (03/08/2023 11:55 AM [employer]) Cholesterol 193 30 - 199 mg/dL [facility] Comment: Interpretive Data Ages < [...] revised on 2017. Triglycerides 250(H) <=149 mg/dL [facility] Comment: Interpretive Data Ages < [...] on 2017. HDL 36(L) >=40 mg/dL [facility] Comment: Interpretive Data Ages < [...] [facility] Blood 03/08/2023 11:5 5 AM [employer] 03/08/2023 3:48 PM [employer] us Kraig Ching MD LAB BLOOD ORDERABLES Final Re sult [facility] [place] [address] * (ABNORMAL) Albumin Creatinine Ratio, Urine (01/01/2023 [...] Final Re sult 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 Specialty Start Date End Date Kraig Ching MD [address] [facility] [address] [place] [address] PCP - General 07/10/16 Gautam Cope MD [address] [place] [address] Medical Oncologist/Crew Leader Medical Oncology 08/18/18 Tramaine Roe MD [address] [facility] [address] [place] [address] Referring Physician Urology 08/18/18 Sukhwinder Uribe MD [address] [facility] [address] [place] [address] Consulting Physician Urology 08/18/18 Shay Guillermo MD [address] [facility] [address] [place] [address] Referring Physician Urology 08/18/18 Marsha Landis, RN Registered Nurse 11/17/18
--- OUTSIDE RECORDS SUMMARY | 2024-08-27 22:22 | XMS_ITS | Referral Summary ---
Author Organization [facility] Address [address] [place] [address] Care Team Providers Care Archery Instructor Name Role Phone Kraig Ching MD Primary Care Provider [phone] Gautam Cope MD Unavailable Tramaine Roe MD Unavailable [phone] Sukhwinder Uribe MD Unavailable Shay Guillermo MD Unavailable [phone] Marsha Landis RN Unavailable Unavailab le Encounters Date Type Department Care Team Description 08/25/[address] [phone] Kraig Ching MD ZAK Questions 08/24/[address] [phone] Kraig Ching MD Medical Question/Miscellaneous 08/21/[address] [phone] Kraig Ching MD Additional Services Or Orders 08/21/[address] [phone] Kraig Ching MD Medical Question/Miscellaneous 07/31/2024 Orders Only [facility] Health Information Management [address] [place] [address] Scanning, Provider 07/24/2024 Telephone [facility] Oncology [facility] Floor [address] [place] [address] Gautam Cope MD 07/22/2024 Orders Only [facility] Health Information Management [address] [place] [address] Scanning, Provider 07/21/2024 Results Follow-Up [facility] Medical [facility] at [address] [phone] Fadi Corrales NP Urine culture Urine, clean voided 07/19/2024 7:45 PM CDT - 07/19/2024 11:59 PM CDT Hospital Encounter [address] [address] Urinary frequency Discharge Disposition: Discharge to home or self care 07/19/2024 2:00 PM CDT Office Visit [facility] at [address] [phone] Clau Childers PA Urinary frequency (Primary Dx); Leukocytosis, unspecified type 07/18/2024 Patient Self-Triage [facility] [address] [place] [address] Mychart, Generic Provider 07/18/2024 1:00 PM CDT Office Visit [facility] Oncology [facility] Floor [address] [place] [address] Gautam Cope MD Prostate cancer (HCC) (Primary Dx) 07/18/2024 12:00 PM CDT Lab [facility] - Lab Collection [address] [facility] Floor [address] [place] [address] Prostate cancer (HCC) 07/18/2024 1:45 PM CDT Infusion [facility] - Infusion [address] [facility] Floor [address] [place] [address] Prostate cancer (HCC) (Primary Dx) 07/01/2024 Orders Only [facility] Health Information Management [address] [place] [address] Scanning, Provider 06/14/2024 6:15 PM PROGRAM SERVICES PLANNER Lab [facility] ([facility]) [address] [place] [address] GABRIELA (acute kidney injury) 06/14/2024 3:00 PM PROGRAM SERVICES PLANNER Office Visit [facility] Nephrology [address] [facility] Advanced [facility] 5th [place] [address] [place] [address] Lin Guerrero MD Chronic kidney disease, stage 3b (HCC) (Primary Dx); GABRIELA (acute kidney injury); Hypertension, essential; Secondary hyperparathyroidism of renal origin 06/08/2024 12:00 PM PROGRAM SERVICES PLANNER Lab [facility] [address] [place] [address] Anemia in stage 3b chronic kidney disease (HCC); Hypertension, essential; Secondary hyperparathyroidism of renal origin; Stage 3 chronic kidney disease, unspecified whether stage 3a or 3b CKD (HCC); Primary hypertension; Vitamin D deficiency; Type 2 diabetes mellitus with stage 3a chronic kidney disease, with long-term current use of insulin (HCC); Fatigue, unspecified type; GABRIELA (acute kidney injury) 06/08/2024 9:45 AM PROGRAM SERVICES PLANNER Office Visit [facility] [address] [facility] [address] [place] [address] Kraig Ching MD Hypertension, essential (Primary Dx); [...] 05/30/2024 Assessment & Plan (06/08/2024 4:46 AM PROGRAM SERVICES PLANNER): Continue current regimen.Limit nephrotoxins.Reviewed creatinine. Avoid NSAIDS. [...] 03/08/2023 Assessment & Plan (06/08/2024 4:46 AM PROGRAM SERVICES PLANNER): Hypertension is controlled. Continue current regimen. Assessment & Plan (10/05/2023 12:54 PM CDT): Hypertension is controlled. Decrease carvedilol to 12.5 mg. Assessment & Plan (03/08/2023 7:11 AM PROGRAM SERVICES PLANNER): Hypertension is controlled. Continue current regimen. 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 Avoid NSAIDS. Assessment & Plan (10/05/2023 5:50 AM CDT): Continue current regimen.Limit nephrotoxins.Reviewed creatinine. Avoid NSAIDS. Assessment & Plan (03/08/2023 7:12 AM PROGRAM SERVICES PLANNER): Continue current regimen.Limit nephrotoxins.Reviewed creatinine. Avoid NSAIDS. CKD (chronic kidney disease) 03/08/2022 Assessment & Plan (06/08/2024 4:45 AM PROGRAM SERVICES PLANNER): Limit nephrotoxins. Monitor creatinine. Avoid NSAIDS.Follow with Nephrology. Anemia in stage 3b chronic kidney disease 2021 Gastroesophageal reflux disease 04/08/2021 Assessment & Plan (03/08/2023 11:17 AM PROGRAM SERVICES PLANNER): Reviewed dietary modifications. Continue PPI. Assessment & Plan (08/18/2022 6:36 AM CDT): Reviewed dietary modifications. Continue PPI. Assessment & Plan (02/12/2022 6:03 AM CDT): Reviewed dietary modifications. Continue PPI. Assessment & Plan (04/08/2021 5:55 AM PROGRAM SERVICES PLANNER): Reviewed dietary modifications. Continue PPI. 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 Continue home PT exercises. Advised using a walker. Assessment & Plan (08/18/2022 11:47 AM CDT): Continue oxycodone. Continue home PT exercises. Advised using a walker. Assessment & Plan (02/12/2022 11:41 AM CDT): Continue oxycodone. Continue home PT exercises. A prescription for a walker. Assessment & Plan (04/08/2021 5:55 AM PROGRAM SERVICES PLANNER): Continue oxycodone. Continue home PT exercises. Continue walker. Assessment & Plan (12/26/2020 10:48 AM CDT): Continue oxycodone. Script for walker. Assessment & Plan (09/26/2020 11:29 AM CDT): Continue ROM exercises and follow with Pain Management. Refill oxycodone as needed. Prostate cancer 09/06/2018 Assessment & Plan (06/08/2024 4:46 AM PROGRAM SERVICES PLANNER): Follow with Oncology. Continue Zytiga. Assessment & [...] 01/25/2018 Assessment & Plan (03/07/2018 6:54 AM PROGRAM SERVICES PLANNER): Hypertension is controlled. Continue current regimen. CHF [...] creatinine. Assessment & Plan (04/08/2021 5:54 AM PROGRAM SERVICES PLANNER): Hypertension is controlled. Continue current regimen.Limit nephrotoxins. [...] NSAIDS. Assessment & Plan (03/07/2018 6:55 AM PROGRAM SERVICES PLANNER): Hypertension is controlled. Continue current regimen. Limit nephrotoxins. Monitor creatinine. Avoid NSAIDS. Assessment & Plan (11/25/2017 7:09 AM CDT): Limit nephrotoxins. Monitor creatinine. Avoid NSAIDS. Duodenal ulcer 11/25/2017 Assessment & Plan (11/25/2017 10:16 AM CDT): Reviewed GI note . Continue pantoprazole. Avoid NSAIDS. Refer for EGD. PAF (paroxysmal atrial fibrillation) 10/22/2017 Assessment & Plan (03/07/2018 6:54 AM PROGRAM SERVICES PLANNER): Continue rate control. Continue anticoagualtion. Anticipate starting [...] NSAIDS. Assessment & Plan (03/07/2018 6:55 AM PROGRAM SERVICES PLANNER): Limit nephrotoxins. Monitor creatinine. Avoid NSAIDS. Assessment [...] diet. Assessment & Plan (04/08/2021 10:17 AM PROGRAM SERVICES PLANNER): Reviewed HgBA1C elevated at 10.6 on 04/01/21. [...] therapy. Assessment & Plan (03/07/2018 6:57 AM PROGRAM SERVICES PLANNER): Continue pravastatin. He had myalgias on other [...] diet. Assessment & Plan (03/02/2017 6:53 AM PROGRAM SERVICES PLANNER): Hypertension is controlled. Continue current regimen. Reviewed low sodium diet. Assessment & Plan (01/15/2017 6:44 AM CDT): Reviewed proper diet. Continue statin therapy. Hyperlipidemia 01/12/2012 Assessment & Plan (06/08/2024 4:46 AM PROGRAM SERVICES PLANNER): Continue pravastatin. Order lipid panel at next [...] 05/28/2023 Assessment & Plan (03/08/2023 11:40 AM PROGRAM SERVICES PLANNER): Agree with cataract surgery. He has 1st [...] 08/30/2017 Assessment & Plan (03/02/2017 10:48 AM PROGRAM SERVICES PLANNER): Mood is improved. Monitor off medication. Impotence [...] 200. Assessment & Plan (03/07/2018 6:56 AM PROGRAM SERVICES PLANNER): Continue current regimen. Advised annual eye exam.Limit [...] 01/17/2019 Influenza, Unspecified 01/17/2019(Deferred: Daisy ent Refused) MYR (J&J) SARS-CoV-2 Vaccination 06/14/2020, 06/14/2020 Pfizer SARS-CoV-2 [...] pur e alcohol) Occasional glass of wine. [facility] Incujectorities Answer Date Recorded In the past 12 months has [employer] electric, gas, oil, or water company threatened [...] any clubs o r organizations such as holiness groups, unions, fraternal or athletic groups, or [...] any time in the past 12 m [facility], were you homeless or living [...] file Legal Sex Male 4:46 PM PROGRAM SERVICES PLANNER Gender Identity Not on file Sexual [...] cm (5' 9 ) 06/14/2024 2:58 PM PROGRAM SERVICES PLANNER Body Mass Index 29.98 06/14/2024 2:58 PM PROGRAM SERVICES PLANNER Plan of Treatment Not on file Goals Goal Patient Goal Type Associated Problems Recent Progress Patient-Stated? Author ZAK General Goal - Patient establishes care with [facility] ACO Care Management On track(2023 1:22 PM PROGRAM SERVICES PLANNER) No Clarissa Luna RN Note: Problem: Lack [...] providers ACO Care Management Improving( 1:22 PM PROGRAM SERVICES PLANNER) No Clarissa Luna RN Note: Problem: Potential [...] medication regimen. Medical Devices Implanted Type Area Cloth Booker Device Identifier Shelf Expiration Date Model / Serial / Lot [employer] Lens Iol Cna0t0.195 [facility] Autonom Cna0t0.195 - [id number] - [id number] Implanted:Qty: 1 on 06/09/2023 by Higinio Connolly MD at [facility] Lens Right: Eye [employer] [id number] 10/27/2025 CNA0T0.19 5 / [id number] / [employer] Lens Iol Cna0t0.200 [facility] Autonom Cna0t0.200 - [id number] - [id number] Implanted:Qty: 1 on 05/19/2023 by Higinio Connolly MD at [facility] Left: Eye [employer] [facility] [id number] 10/06/2025 CNA0T0.20 0 / [id number] / Procedures Procedure Name Priority Date/Time [...] AM CDT EGFR Routine 06/14/2024 3:48 PM PROGRAM SERVICES PLANNER GABRIELA (acute kidney injury) RENAL FUNCTION PANEL Routine 06/14/2024 3:48 PM PROGRAM SERVICES PLANNER GABRIELA (acute kidney injury) URINALYSIS AND REFLEX TO MICROSCOPIC Routine 06/08/2024 10:47 AM PROGRAM SERVICES PLANNER Anemia in stage 3b chronic kidney disease (HCC) Hypertension, essential Secondary hyperparathyroidism of renal origin Stage 3 chronic kidney disease, unspecified whether stage 3a or 3b CKD (HCC) Primary hypertension Vitamin D deficiency Type 2 diabetes mellitus with stage 3a chronic kidney disease, with long-term current use of insulin (HCC) Fatigue, unspecified type GABRIELA (acute kidney injury) EGFR Routine 06/08/2024 10:44 AM PROGRAM SERVICES PLANNER Anemia in stage 3b chronic kidney disease (HCC) Hypertension, essential Secondary hyperparathyroidism of renal origin Stage 3 chronic kidney disease, unspecified whether stage 3a or 3b CKD (HCC) Primary hypertension Vitamin D deficiency Type 2 diabetes mellitus with stage 3a chronic kidney disease, with long-term current use of insulin (HCC) Fatigue, unspecified type GABRIELA (acute kidney injury) DIFFERENTIAL AUTO Routine 06/08/2024 10:44 AM PROGRAM SERVICES PLANNER Anemia in stage 3b chronic kidney disease [...] RENAL FUNCTION PANEL Routine 06/08/2024 10:44 AM PROGRAM SERVICES PLANNER Anemia in stage 3b chronic kidney disease [...] D 25 HYDROXY Routine 06/08/2024 10:44 AM PROGRAM SERVICES PLANNER Anemia in stage 3b chronic kidney disease [...] WITH AUTO DIFFERENTIAL Routine 06/08/2024 10:44 AM PROGRAM SERVICES PLANNER Anemia in stage 3b chronic kidney disease (HCC) Hypertension, essential Secondary hyperparathyroidism of renal origin Stage 3 chronic kidney disease, unspecified whether stage 3a or 3b CKD (HCC) Primary hypertension Vitamin D deficiency Type 2 diabetes mellitus with stage 3a chronic kidney disease, with long-term current use of insulin (HCC) Fatigue, unspecified type GABRIELA (acute kidney injury) PTH Routine 06/08/2024 10:44 AM PROGRAM SERVICES PLANNER Anemia in stage 3b chronic kidney disease [...] RATIO, URINE, RANDOM Routine 06/08/2024 10:44 AM PROGRAM SERVICES PLANNER Anemia in stage 3b chronic kidney disease (HCC) Hypertension, essential Secondary hyperparathyroidism of renal origin Stage 3 chronic kidney disease, unspecified whether stage 3a or 3b CKD (HCC) Primary hypertension Vitamin D deficiency Type 2 diabetes mellitus with stage 3a chronic kidney disease, with long-term current use of insulin (HCC) Fatigue, unspecified type GABRIELA (acute kidney injury) LIPID PANEL Routine 03/08/2023 11:55 AM PROGRAM SERVICES PLANNER Hyperlipidemia, unspecified hyperlipidemia type ALBUMIN CREATININE RATIO, URINE Routine 01/01/2023 10:40 AM CDT Type 2 diabetes mellitus with stage 3a chronic kidney disease, with long-term current use of insulin ([facility] DIABETES EYE EXAM Routine 06/29/2018 from Last [...] Large Ketones, ur, POC Negative Negative Specific [place], POC 1.015 1.003 - 1.030 Blood, ur, POC Hemolyzed, trace(A) Negative pH, ur, POC 6.0 5.0 - 8.0 Protein, ur, POC 30.(A) Negative Urobilinogen, urine, POC 0.2 0.2 - 1.0 mg/dL Nitrite, ur, POC Negative Negative Leukocytes, ur, POC Negative Negative Lot Number [id number] Urine 07/19/2024 2:16 PM CDT Result [facility] ESQUIVEL POINT OF CARE TEST ORDER ALAN Final Result * Urine culture Urine, clean voided (07/19/2024 12:00 PM CDT) Report Final Report: No growth Comment:Testing performed by : [facility], [address] [facility], [place]., [address] Urine, clean voided 07/19/2024 12:00 PM CDT 07/20/2024 2:19 AM CDT Narrative [facility] - 07/21/2024 7:38 AM CDT Testing performed by [facility] Microbiology Laboratory ([phone]) Clau ESQUIVEL LAB MICROBIOLOGY - GENER AL ORDERABLES Final Result [facility] [id number] Department [place] [address] * (ABNORMAL) eGFR (07/18/2024 12:07 PM CDT) [...] ORDERABLES Final Resul t [facility] Department [place] [address] * (ABNORMAL) Differential, auto (07/18/2024 12:07 PM CDT) Neutrophil abs 17.55(H) 1.50 - 6.50 K/cumm Comment:Testing performed by : [facility]e [facility], [address] [place] [phone] Lymphocyte abs 0.96 0.80 - 3.30 K/cumm [facility] Comment:Testing performed by : [facility] Heme Lab, [address] [place] [phone] Monocyte abs 1.48(H) 0.20 - 0.80 K/cumm [facility] Comment:Testing performed by : [facility]e [facility], [address] [place], [place] [phone] Eosinophil abs 0.06 0.00 - 0.50 K/cumm [facility] Comment:Testing performed by : [facility]e [facility], [address] [place] [phone] Basophil abs 0.03 0.00 - 0.10 K/cumm [facility] Comment:Testing performed by : [facility]e [facility], [address] [place] [address] Neutrophil pct 87.4 % [facility] Comment: Interpretive Data Percent cell count reference ranges are not reported, since discordance with absolute values may lead to misinterpretation of CBC data. Current Interpretive Data was last revised on 2017. Testing performed by: [facility]e [facility], [address] [place] [phone] Lymphocyte pct 4.8 % [facility] Comment: Interpretive Data Percent cell count reference ranges are not reported, since discordance with absolute values may lead to misinterpretation of CBC data. Current Interpretive Data was last revised on 2017. Testing performed by: [facility]e [facility], [address] [place] [phone] Monocyte pct 7.4 % [facility] Comment: Interpretive Data Percent cell count reference ranges are not reported, since discordance with absolute values may lead to misinterpretation of CBC data. Current Interpretive Data was last revised on 2017. Testing performed by: [facility]e [facility], [address] [place] [phone] Eosinophil pct 0.3 % [facility] Comment: Interpretive Data Percent cell count reference ranges are not reported, since discordance with absolute values may lead to misinterpretation of CBC data. Current Interpretive Data was last revised on 2017. Testing performed by: [facility]e [facility], [address] [place] [phone] Basophil pct 0.2 % [facility] Comment: Interpretive Data Percent cell count reference ranges are not reported, since discordance with absolute values may lead to misinterpretation of CBC data. Current Interpretive Data was last revised on 2017. Testing performed by: [facility] Heme Lab, [address] [place] [address] Blood 07/18/2024 12:0 7 PM CDT 07/18/2024 12:22 PM CDT us Gautam Cope MD LAB BLOOD ORDERABLES Final Resul t [facility] Department [place] [address] * (ABNORMAL) CBC with auto differential (07/18/2024 12:07 PM CDT) WBC 20.09(H) 3.80 - 9.90 K/cumm Comment:Testing performed by : [facility] Heme Lab, [address] [place] [address] Hgb 12.1(L) 13.0 - 17.5 g/dL [facility] Comment:Testing performed by : [facility] Heme Lab, [address] [place] [address] Hct 38.2(L) 38.9 - 50.3 % [facility] Comment:Testing performed by : [facility] Heme Lab, [address] [place] [address] Plt 451(H) 150 - 400 K/cumm [facility] Comment:Testing performed by : [facility]e Lab, [address] [place] [address] MPV 7.7 6.8 - 10.4 fL [facility] Comment:Testing performed by : [facility] Heme Lab, [address] [place] [address] RBC 4.46 4.30 - 5.80 M/cumm [facility] Comment:Testing performed by : [facility] Heme Lab, [address] [place] [address] MCV 85.5 81.3 - 96.4 fL [facility] Comment:Testing performed by : [facility] Heme Lab, [address] [place] [address] MCH 27.1 27.1 - 33.3 pg [facility] Comment:Testing performed by : [facility] Heme Lab, [address] [place] [address] MCHC 31.7(L) 32.3 - 35.7 g/dL [facility] Comment:Testing performed by : [facility] Heme Lab, [address] [place] [address] RDW CV 14.9 11.1 - 14.9 % [facility] Comment:Testing performed by : [facility] Heme Lab, [address] [place] [address] NRBC abs 0.00 0.00 - 0.01 K/cumm [facility] Comment:Testing performed by : [facility] Heme Lab, [address] [place] [address] Blood 07/18/2024 12:0 7 PM CDT 07/18/2024 12:22 PM CDT us Gautam Cope MD LAB BLOOD ORDERABLES Final Resul t [facility] Department [place] [address] * PSA diagnostic (07/18/2024 12:07 PM CDT) [...] Final Resul t Performing Organization Address City/[facility] Co de Phone Number [facility] [place] [address] * Lactate dehydrogenase (LD) (07/18/2024 12:07 PM CDT) Lactate dehydrogenase (LDH) 216 100 - 250 Units/L Blood 07/18/2024 12:0 7 PM CDT 07/18/2024 12:25 PM CDT Result [facility] us Gautam Cope MD LAB BLOOD ORDERABLES Final Resul t Performing Organization Address [facility] de Phone Number [facility] [place] [address] * (ABNORMAL) Hemoglobin A1c (07/18/2024 12:07 PM CDT) Hgb A1C 8.0(H) 4.0 - 5.6 % Estimated Average Glucose 183 mg/dL [facility] Comment: The ADA recommends reporting [...] t Performing Organization Address [facility] Co de Phone Number [facility] [place] [address] * (ABNORMAL) Comprehensive metabolic panel (07/18/2024 12:07 PM CDT) Sodium 142 135 - 145 mmol/L Potassium, pl 4.6 3.3 - 4.9 mmol/L [facility] Chloride 106 97 - 110 mmol/L [facility] CO2 24 22 - 32 mmol/L [facility] Anion gap 12 2 - 15 mmol/L [facility] BUN 52(H) 6 - 25 mg/dL [facility] Creatinine 2.66(H) 0.80 - 1.30 mg/dL [facility] Glucose 164 70 - 199 mg/dL [facility] Comment: Interpretive Data Fasting glucose [...] 2022. Calcium 9.0 8.5 - 10.3 mg/dL [facility] Bilirubin, total 0.5 0.1 - 1.2 mg/dL [facility] Protein, pl 6.7 6.5 - 8.5 g/dL [facility] Albumin 4.0 3.5 - 5.0 g/dL [facility] Alk phos 126 40 - 130 Units/L [facility] ALT 10 7 - 55 Units/L [facility] AST 13 10 - 50 Units/L [facility] Blood 07/18/2024 12:0 7 PM CDT 07/18/2024 12:25 PM CDT us Gautam Cope MD LAB BLOOD ORDERABLES Final Resul t [facility] Department [place] [address] * SCAN - RADIOLOGY/IMAGING (07/01/2024 9:44 AM CDT) Anatomical Region Laterality Modality Other us Provider Scanning Final Result * (ABNORMAL) eGFR (06/14/2024 3:48 PM PROGRAM SERVICES PLANNER) eGFR 26(L) >=60 mL/min/1. 73 m2 Comment: [...] last reviewed 2021. Blood 06/14/2024 3:48 PM PROGRAM SERVICES PLANNER 06/14/2024 4:07 PM PROGRAM SERVICES PLANNER Lin Guerrero MD LAB BLOOD ORDERABLES Final Resul t [facility] Department [place] [address] * (ABNORMAL) Renal function panel (06/14/2024 3:48 PM PROGRAM SERVICES PLANNER) Sodium 143 135 - 145 mmol/L Potassium, pl 5.0(H) 3.3 - 4.9 mmol/L [facility] Chloride 105 97 - 110 mmol/L [facility] CO2 28 22 - 32 mmol/L [facility] Anion gap 10 2 - 15 mmol/L [facility] BUN 48(H) 6 - 25 mg/dL [facility] Creatinine 2.42(H) 0.80 - 1.30 mg/dL [facility] Glucose 152 70 - 199 mg/dL [facility] Comment: Interpretive Data Fasting glucose [...] 2022. Calcium 8.7 8.5 - 10.3 mg/dL [facility] Phosphorus, pl 3.1 2.3 - 4.5 mg/dL [facility] Albumin 3.9 3.5 - 5.0 g/dL [facility] Blood 06/14/2024 3:48 PM PROGRAM SERVICES PLANNER 06/14/2024 4:03 PM PROGRAM SERVICES PLANNER us Lin Guerrero MD LAB BLOOD ORDERABLES Final Resul t [facility] [facility] Department [place] [address] * Urinalysis reflex to microscopic (06/08/2024 10:47 AM PROGRAM SERVICES PLANNER) Color, ur Straw Yellow Clarity, ur Clear Clear [facility] Specific gravity, ur 1.012 1.003 - 1.030 [facility] pH, urine 6.0 [facility] Comment: Interpretive Data U rine pH is affected by diet, medications, systemic acid-base disturbances, and renal tubular function. pH may affect urinary stone formation. For example, urine pH below 6.0 may help reduce the tendency for calcium phosphate stones and pH greater than 6.0 may reduce the tendency for uric acid stone formation. Source: [employer] Current Interpretive Data was last revised on 2017 Protein, ur ql Trace Negative [facility] Glucose, ur ql Negative Negative [facility] Ketones, ur Negative Negative [facility] Bilirubin, ur Negative Negative [facility] Blood, ur Negative Negative [facility] Urobilinogen, ur <2.0 <2.0 mg/dL [facility] Nitrite, ur Negative Negative [facility] Leukocyte esterase, ur Negative Negative [facility] UA reflex comment Reflex conditions for microscopic UA not met. [facility] Urine 06/08/2024 10:4 7 AM PROGRAM SERVICES PLANNER 06/08/2024 11:41 AM PROGRAM SERVICES PLANNER Lin Guerrero MD LAB URINE ORDERABLES Final Resul t Performing Organization Address [facility] Co de Phone Number [facility] Department [place] [address] * (ABNORMAL) eGFR (06/08/2024 10:44 AM PROGRAM SERVICES PLANNER) eGFR 22(L) >=60 mL/min/1. 73 m2 Comment: [...] reviewed 2021. Blood 06/08/2024 10:4 4 AM PROGRAM SERVICES PLANNER 06/08/2024 11:23 AM PROGRAM SERVICES PLANNER us Lin Guerrero MD LAB BLOOD ORDERABLES Final Resul t Performing Organization Address City/[facility]/ZIP Co de Phone Number [facility] Department [place] [address] * (ABNORMAL) Differential, auto (06/08/2024 10:44 AM PROGRAM SERVICES PLANNER) Neutrophil abs 7.8(H) 1.5 - 6.5 K/cumm Imm gran abs 0.1 0.0 - 0.1 K/cumm [facility] Lymphocyte abs 1.9 0.8 - 3.3 K/cumm [facility] Monocyte abs 1.0(H) 0.2 - 0.8 K/cumm [facility] Eosinophil abs 0.1 0.0 - 0.5 K/cumm [facility] Basophil abs 0.0 0.0 - 0.1 K/cumm [facility] Neutrophil pct 71.1 % [facility] Comment: Interpretive Data Percent cell count reference ranges are not reported, since discordance with absolute values may lead to misinterpretation of CBC data. Current Interpretive Data was last revised on 2017. Imm gran pct 0.8 % [facility] Comment: Interpretive Data Percent cell count reference ranges are not reported, since discordance with absolute values may lead to misinterpretation of CBC data. Current Interpretive Data was last revised on 2017. Lymphocyte pct 17.1 % [facility] Comment: Interpretive Data Percent cell count reference ranges are not reported, since discordance with absolute values may lead to misinterpretation of CBC data. Current Interpretive Data was last revised on 2017. Monocyte pct 9.3 % [facility] Comment: Interpretive Data Percent cell count reference ranges are not reported, since discordance with absolute values may lead to misinterpretation of CBC data. Current Interpretive Data was last revised on 2017. Eosinophil pct 1.3 % [facility] Comment: Interpretive Data Percent cell count reference ranges are not reported, since discordance with absolute values may lead to misinterpretation of CBC data. Current Interpretive Data was last revised on 2017. Basophil pct 0.4 % [facility] Comment: Interpretive Data Percent cell count reference ranges are not reported, since discordance with absolute values may lead to misinterpretation of CBC data. Current Interpretive Data was last revised on 2017. Blood 06/08/2024 10:4 4 AM PROGRAM SERVICES PLANNER 06/08/2024 11:23 AM PROGRAM SERVICES PLANNER Lin Guerrero MD LAB BLOOD ORDERABLES Final Resul t Performing Organization Address [facility] Co de Phone Number [facility] Department [place] [address] * (ABNORMAL) CBC with auto differential (06/08/2024 10:44 AM PROGRAM SERVICES PLANNER) [facility] WBC 11.0(H) 3.8 - 9.9 K/cumm Hgb 12.0(L) 13.0 - 17.5 g/dL [facility] Hct 36.9(L) 38.9 - 50.3 % [facility] Plt 357 150 - 400 K/cumm [facility] MPV 9.8 9.1 - 12.3 fL [facility] RBC 4.27(L) 4.30 - 5.80 M/cumm [facility] MCV 86.4 81.3 - 96.4 fL [facility] MCH 28.1 27.1 - 33.3 pg [facility] MCHC 32.5 32.3 - 35.7 g/dL [facility] RDW CV 14.1 11.1 - 14.9 % [facility] RDW SD 44.2 35.7 - 48.1 fL [facility] NRBC abs 0.00 0.00 - 0.01 K/cumm [facility] Blood 06/08/2024 10:4 4 AM PROGRAM SERVICES PLANNER 06/08/2024 11:23 AM PROGRAM SERVICES PLANNER Lin Guerrero MD LAB BLOOD ORDERABLES Final Resul t Performing Organization Address [facility]/ZIP Co de Phone Number [facility] [place] [address] * (ABNORMAL) Protein / creatinine ratio, urine, random (06/08/2024 10:44 AM PROGRAM SERVICES PLANNER) [facility] Protein, ur, quant 21.3 mg/dL Comment: Interpretive Data No reference range established. Current interpretive data was last revised 2018. Creatinine Ur 52.2 mg/dL [facility] Comment: Interpretive Data No reference range established. Current interpretive data was last revised 2018. Protein/creatinin e ratio 408.0(H) 0.0 - 180.0 mg/g CR [facility] Urine 06/08/2024 10:4 4 AM PROGRAM SERVICES PLANNER 06/08/2024 11:23 AM PROGRAM SERVICES PLANNER us Lin Guerrero MD LAB URINE ORDERABLES Final Resul t Performing Organization Address City/[facility] Co de Phone Number [facility] [place] [address] * Vitamin D 25 hydroxy (06/08/2024 10:44 AM PROGRAM SERVICES PLANNER) Vitamin D 25-OH 42 30 - 80 ng/mL Blood 06/08/2024 10:4 4 AM PROGRAM SERVICES PLANNER 06/08/2024 11:23 AM PROGRAM SERVICES PLANNER us Lin Guerrero MD LAB BLOOD ORDERABLES Final Resul t Performing Organization Address [facility] Co de Phone Number [facility] [place] [address] * (ABNORMAL) PTH (06/08/2024 10:44 AM PROGRAM SERVICES PLANNER) PTH 78(H) 15 - 65 pg/mL Blood 06/08/2024 10:4 4 AM PROGRAM SERVICES PLANNER 06/08/2024 11:23 AM PROGRAM SERVICES PLANNER us Lin Guerrero MD LAB BLOOD ORDERABLES Final Resul t Performing Organization Address [facility] Co de Phone Number [facility] [place] [address] * (ABNORMAL) Renal function panel (06/08/2024 10:44 AM PROGRAM SERVICES PLANNER) Sodium 142 135 - 145 mmol/L Potassium, pl 4.8 3.3 - 4.9 mmol/L [facility] Chloride 107 97 - 110 mmol/L [facility] CO2 27 22 - 32 mmol/L [facility] Anion gap 8 2 - 15 mmol/L [facility] BUN 60(H) 6 - 25 mg/dL [facility] Creatinine 2.72(H) 0.80 - 1.30 mg/dL [facility] Glucose 94 70 - 199 mg/dL [facility] Comment: Interpretive Data Fasting glucose [...] 2022. Calcium 9.0 8.5 - 10.3 mg/dL [facility] Phosphorus, pl 3.5 2.3 - 4.5 mg/dL [facility] Albumin 3.8 3.5 - 5.0 g/dL [facility] Blood 06/08/2024 10:4 4 AM PROGRAM SERVICES PLANNER 06/08/2024 11:23 AM PROGRAM SERVICES PLANNER us Lin Guerrero MD LAB BLOOD ORDERABLES Final Resul t [facility] Department [place] [address] * (ABNORMAL) Lipid panel (03/08/2023 11:55 AM PROGRAM SERVICES PLANNER) Cholesterol 193 30 - 199 mg/dL [facility] Comment: Interpretive Data Ages < [...] revised on 2017. Triglycerides 250(H) <=149 mg/dL [facility] Comment: Interpretive Data Ages < [...] revised on 2017. HDL 36(L) >=40 mg/dL [facility] Comment: Interpretive Data Ages < [...] on 2017. LDL, calculated 107 <=129 mg/dL [facility] Comment: Interpretive Data Ages < [...] revised on 2017. Non-HDL Cholesterol 157 mg/dL [facility] Comment: Interpretive Data Ages < [...] last revised on 2017. Chol/HDL ratio 5 [facility] Blood 03/08/2023 11:5 5 AM PROGRAM SERVICES PLANNER 03/08/2023 3:48 PM PROGRAM SERVICES PLANNER Kraig Ching MD LAB BLOOD ORDERABLES Final Re sult Performing Organization Address [facility] de Phone Number [facility] Department [place] [address] * (ABNORMAL) Albumin Creatinine Ratio, Urine (01/01/2023 10:40 AM CDT) Pathologist [facility] Albumin Ur 227.3 mg/L [facility] Comment: Interpretive Data No reference range established. Current interpretive data was last revised 2018. Creatinine Ur 66.5 mg/dL [facility] Comment: Interpretive Data No reference range established. Current interpretive data was last revised 2018. Albumin Creatinine Ratio, Ur 342(H) 1 - 29 mg/g [facility] Urine 01/01/2023 10:4 0 AM CDT 01/01/2023 10:45 AM CDT Kraig Ching MD LAB URINE ORDERABLES Final Re sult Performing Organization Address [facility] Co de Phone Number [facility] Department [place] [address] * DIABETES EYE EXAM (06/29/2018) Pathologist [facility] Diabetic Eye Exam Normal us Historical Provider HEALTH MAINTENANCE Final Result from Last 3 Months or Most Recently Relevant to Health Maintenance Insurance T MEDICARE T MEDICARE T MEDICARE [employer] MEDICARE Advance Directives For more information, please contact: [phone] * Full Code (Latest Code Status on File) Date Activated Date Inactivated Comments 12/16/2017 2:44 PM 12/16/2017 7:18 PM Care Teams Archery Instructor Relationship Specialty Start Date End Date Kraig Ching MD [id number] [facility] [address] [place] [address] PCP - General 07/10/16 Gautam Cope MD [id number] [place] [address] Medical Oncologist/Inside Sales Medical Oncology 08/18/18 Tramaine Roe MD [address] [facility] [address] [place] [address] Referring Physician Urology 08/18/18 Sukhwinder Uribe MD [address] [facility] [address] [place] [address] Consulting Physician Urology 08/18/18 Shay Guillermo MD [address] [facility] [address] [place] [address] Referring Physician Urology 08/18/18 Marsha Landis, RN Registered Nurse 11/17/18
--- OUTSIDE RECORDS SUMMARY | 2024-08-27 22:22 | XMS_ITS ---
Author Organization [facility] Address [address] [place] [address] Care Team Providers Care Material Reprocessing Associate Name Role Phone Kraig Ching MD Primary Care Provider [phone] Gautam Cope MD Unavailable Tramaine Roe MD Unavailable [phone] Sukhwinder Uribe MD Unavailable [phone] Shay Guillermo MD Unavailable [phone] Marsha Landis RN Unavailable Unavailab Active Problems Problem Noted Date Diagnosed Date Statin myopathy 06/08/2024 Essential hypertension 05/30/2024 Type 2 diabetes mellitus wit h stage 3b chronic kidney disease, with long-term current use of insulin 05/30/2024 Assessment & Plan (06/08/2024 4:46 AM RECORDAK OPERATOR): Continue current regimen.Limit nephrotoxins.Reviewed creatinine. Avoid NSAIDS. [...] 03/08/2023 Assessment & Plan (06/08/2024 4:46 AM RECORDAK OPERATOR): Hypertension is controlled. Continue current regimen. Assessment & Plan (10/05/2023 12:54 PM CDT): Hypertension is controlled. Decrease carvedilol to 12.5 mg. Assessment & Plan (03/08/2023 7:11 AM RECORDAK OPERATOR): Hypertension is controlled. Continue current regimen. 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 Avoid NSAIDS. Assessment & Plan (10/05/2023 5:50 AM CDT): Continue current regimen.Limit nephrotoxins.Reviewed creatinine. Avoid NSAIDS. Assessment & Plan (03/08/2023 7:12 AM RECORDAK OPERATOR): Continue current regimen.Limit nephrotoxins.Reviewed creatinine. Avoid NSAIDS. CKD (chronic kidney disease) 03/08/2022 Assessment & Plan (06/08/2024 4:45 AM RECORDAK OPERATOR): Limit nephrotoxins. Monitor creatinine. Avoid NSAIDS.Follow with Nephrology. 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 Continue PPI. Assessment & Plan (08/18/2022 6:36 AM CDT): Reviewed dietary modifications. Continue PPI. Assessment & Plan (02/12/2022 6:03 AM CDT): Reviewed dietary modifications. Continue PPI. Assessment & Plan (04/08/2021 5:55 AM RECORDAK OPERATOR): Reviewed dietary modifications. Continue PPI. 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 Continue home PT exercises. Advised using a walker. Assessment & Plan (08/18/2022 11:47 AM CDT): Continue oxycodone. Continue home PT exercises. Advised using a walker. Assessment & Plan (02/12/2022 11:41 AM CDT): Continue oxycodone. Continue home PT exercises. A prescription for a walker. Assessment & Plan (04/08/2021 5:55 AM RECORDAK OPERATOR): Continue oxycodone. Continue home PT exercises. Continue walker. Assessment & Plan (12/26/2020 10:48 AM CDT): Continue oxycodone. Script for walker. Assessment & Plan (09/26/2020 11:29 AM CDT): Continue ROM exercises and follow with Pain Management. Refill oxycodone as needed. Prostate cancer 09/06/2018 Assessment & Plan (06/08/2024 4:46 AM RECORDAK OPERATOR): Follow with Oncology. Continue Zytiga. Assessment & [...] 01/25/2018 Assessment & Plan (03/07/2018 6:54 AM RECORDAK OPERATOR): Hypertension is controlled. Continue current regimen. CHF [...] creatinine. Assessment & Plan (04/08/2021 5:54 AM RECORDAK OPERATOR): Hypertension is controlled. Continue current regimen.Limit nephrotoxins. [...] NSAIDS. Assessment & Plan (03/07/2018 6:55 AM RECORDAK OPERATOR): Hypertension is controlled. Continue current regimen. Limit nephrotoxins. Monitor creatinine. Avoid NSAIDS. Assessment & Plan (11/25/2017 7:09 AM CDT): Limit nephrotoxins. Monitor creatinine. Avoid NSAIDS. Duodenal ulcer 11/25/2017 Assessment & Plan (11/25/2017 10:16 AM CDT): Reviewed GI note . Continue pantoprazole. Avoid NSAIDS. Refer for EGD. PAF (paroxysmal atrial fibrillation) 10/22/2017 Assessment & Plan (03/07/2018 6:54 AM RECORDAK OPERATOR): Continue rate control. Continue anticoagualtion. Anticipate starting [...] NSAIDS. Assessment & Plan (03/07/2018 6:55 AM RECORDAK OPERATOR): Limit nephrotoxins. Monitor creatinine. Avoid NSAIDS. Assessment [...] diet. Assessment & Plan (04/08/2021 10:17 AM RECORDAK OPERATOR): Reviewed HgBA1C elevated at 10.6 on 04/01/21. [...] therapy. Assessment & Plan (03/07/2018 6:57 AM RECORDAK OPERATOR): Continue pravastatin. He had myalgias on other [...] diet. Assessment & Plan (03/02/2017 6:53 AM RECORDAK OPERATOR): Hypertension is controlled. Continue current regimen. Reviewed low sodium diet. Assessment & Plan (01/15/2017 6:44 AM CDT): Reviewed proper diet. Continue statin therapy. Hyperlipidemia 01/12/2012 Assessment & Plan (06/08/2024 4:46 AM RECORDAK OPERATOR): Continue pravastatin. Order lipid panel at next [...] 05/28/2023 Assessment & Plan (03/08/2023 11:40 AM RECORDAK OPERATOR): Agree with cataract surgery. He has 1st [...] 08/30/2017 Assessment & Plan (03/02/2017 10:48 AM RECORDAK OPERATOR): Mood is improved. Monitor off medication. Impotence [...] 200. Assessment & Plan (03/07/2018 6:56 AM RECORDAK OPERATOR): Continue current regimen. Advised annual eye exam.Limit nephrotoxins. Monitor creatinine. Avoid NSAIDS. Assessment & Plan (11/25/2017 10:16 AM CDT): Continue current regimen and add Januvia.Advised annual eye exam. Limit nephrotoxins. Monitor creatinine. Avoid NSAIDS. Assessment & Plan (01/15/2017 6:44 AM CDT): Continue current regimen. Advised annual eye exam. Reviewed proper diet. Continue statin therapy.
[2024-08-27 23:07] LABS: Influenza A QL RT-PCR Negative (Negative); Influenza B QL RT-PCR Negative (Negative); RSV RNA, RT-PCR Negative (Negative); SARS-CoV-2 RNA PCR Negative (Negative)
[2024-08-27 23:12] VITALS: BP 167/50
[2024-08-27 23:47] LABS: Add Urine Microscopic? YES; Appearance Urine Clear (Clear); Bacteria Urine None Seen /hpf; Bilirubin Urine Negative (Negative); Blood Urine Trace (Negative); Color Urine Yellow (Yellow); Glucose Urine UA Negative (Negative); Ketones Urine Trace mg/dL (Negative); Leukocyte Esterase Ur Negative LEU/UL (Negative); Need Manual Microscopic Reviewed; Nitrate Urine Negative (Negative); Protein Urine 2+ mg/dL (Negative); Specific Grav Ur 1.012 (1.001-1.035); Squamous Epithelial Cell Urine None Seen /hpf (Few); Urobilinogen Urine 0.2 mg/dL (<2.0); WBC Urine 0-5 /hpf (0-3); pH Urine 5.5 (5.0-9.0)
== END 2024-08-28 00:37 | disposition home or self-care (01) ==
PROVIDERS: Emergency Provider Physician Assistant; PCP Internal Medicine
DX: R11.0 Nausea (principal); Z20.822 Contact with and (suspected) exposure to COVID-19; I12.9 Hypertensive chronic kidney disease with stage 1 through stage 4 chronic kidney disease, or unspecified chronic kidney disease; E11.22 Type 2 diabetes mellitus with diabetic chronic kidney disease; N18.30 Chronic kidney disease, stage 3 unspecified; I48.0 Paroxysmal atrial fibrillation; E78.5 Hyperlipidemia, unspecified; K21.9 Gastro-esophageal reflux disease without esophagitis; F17.210 Nicotine dependence, cigarettes, uncomplicated; Z85.46 Personal history of malignant neoplasm of prostate; Z85.830 Personal history of malignant neoplasm of bone; Z92.21 Personal history of antineoplastic chemotherapy; Z90.79 Acquired absence of other genital organ(s); Z90.49 Acquired absence of other specified parts of digestive tract; Z79.4 Long term (current) use of insulin; Z79.899 Other long term (current) drug therapy; Z79.84 Long term (current) use of oral hypoglycemic drugs
CPT/HCPCS: 36415; 71045; 74176; 80053; 81001; 83605; 83690; 85025; 87637; 96361; 96374; 99284; J2405; J7030

== ENCOUNTER 2024-08-29 13:56 | Inpatient (IN) | payer MEDICARE, SELFPAY ==
--- NOTE | ~2024-08-29 | XR_ITS ---
MODIFIED ESOPHAGRAM HISTORY: Coughing noted at bedside swallow examination TECHNIQUE: Modified barium esophagram was performed on 08/30/2024. I administered fluoroscopy and perf ormed the exam with speech pathologist. Patient was seated for lateral fluoroscopic imaging for tobin stion of thin liquids, pudding, solids and quantified amounts, followed by thin liquids in uncontroll ed amounts. This was recorded on tape. A single fluoroscopic spot image was also recorded. The DAP fo r this procedure was 1.21 Gycm2. The amount of fluoroscopy time used during this procedure was 1.6 mi nutes. FINDINGS: Oral stage: Adequate function. Pharyngeal stage: Adequate function. Cervical/esophageal stage: Adequate function. IMPRESSION: Patient tolerated regular consistency oral feedings in the upright position. Please domingo elate with speech pathologist findings and specific feeding recommendations. Reviewed, dictated and finalized at location A. IMPRESSION: Patient tolerated regular consistency oral feedings in the upright position. Please correlate with speech pathologist findings and specific feedi ng recommendations.
--- NOTE | ~2024-08-29 | XR_ITS ---
XR chest 1V portable Ordering provider: Marilu Rdz MD History: 83 years Male with . SOB . Comparison: September 03, 2024 FINDINGS: MEDIASTINUM: The cardiac silhouette is moderately enlarged. LUNGS: No infiltrates, effusions or pneumothorax. Prominent markings in the lower lobes. OTHER: No free air under the diaphragm. Degenerative changes of the spine. IMPRESSION: Cardiomegaly. No acute cardiopulmonary pathology. Reviewed, dictated and finalized at location A.
--- NOTE | ~2024-08-29 | XR_ITS ---
XR chest 2V Ordering provider: Kavitha Marks PA-C History: 83 years Male with . sob . Comparison: August 27, 2024 FINDINGS: MEDIASTINUM: The cardiac silhouette is moderately enlarged. LUNGS: No effusions or pneumothorax. Prominent markings in the right lower lobe suggestive of atelectasis versus pneumonia. OTHER: No free air under the diaphragm. Degenerative changes of the spine. IMPRESSION: Right basilar atelectasis versus pneumonia. Reviewed, dictated and finalized at location A.
--- NOTE | ~2024-08-29 | XR_ITS ---
CHEST RADIOGRAPH CLINICAL HISTORY: Fluid overload . COMPARISON: 09/03/2024 TECHNIQUE: Single portable view of the chest. FINDINGS The cardiomediastinal silhouette is unremarkable. Increased interstitial markings are identified bilaterally, findings suggesting mild pulmonary vascul ar congestion. Blunting of the right costophrenic sulcus suggesting a small right-sided pleural effusion. The remainder of the lungs are clear. IMPRESSION: Mild pulmonary vascular congestion with a small right-sided pleural effusion, without focal infiltrat e. Reviewed, dictated and finalized at location A. IMPRESSION: Mild pulmonary vascular congestion with a small right-sided pleural effusion, w ithout focal infiltrate.
--- NOTE | ~2024-08-29 | US_ITS ---
EXAMINATION: US renal BI DATE: 09/02/2024 11:33 INDICATION: Acute on chronic kidney disease TECHNIQUE: Multiple ultrasound grayscale images of the kidneys were obtained. COMPARISON: 03/28/2024 FINDINGS: The right kidney measures 10.7 x 5.6 x 6.2 cm. The left kidney measures 10.6 x 6.4 x 5.5 cm. The kidn eys demonstrate normal echogenicity. Automated exposure control and iterative reconstruction techniqu e were employed. 2.7 cm anechoic cyst at the left kidney. There is no hydronephrosis in either kidney . No stones identified. The bladder is normal. IMPRESSION: 1. 2.7 cm left renal cyst. Otherwise normal kidneys without hydronephrosis. Reviewed, dictated and finalized at location A.
--- NOTE | ~2024-08-29 | XR_ITS ---
CHEST RADIOGRAPH CLINICAL HISTORY: shortness of breath . COMPARISON: 08/29/2024 TECHNIQUE: Single portable view of the chest. FINDINGS The cardiomediastinal silhouette is unremarkable. The lungs are clear. Visualized osseous structures and soft tissues are unremarkable. IMPRESSION: No focal infiltrate or effusion. Reviewed, dictated and finalized at location A.
--- NOTE | ~2024-08-29 | CT_ITS ---
EXAMINATION: CT diagnostic chest wo con DATE: 08/29/2024 19:01 INDICATION: dyspnea TECHNIQUE: Computed tomography (CT) of the chest was performed with 100 mL Omnipaque-350 intravenous contrast. Automated exposure control and iterative reconstruction technique were employed. The dose-l ength product was 353.88 mGy-cm. COMPARISON: 07/31/2024. FINDINGS: CHEST: Thoracic aorta: The ascending thoracic aorta is dilated to 4.0 cm. Atherosclerotic calcifications. Lung parenchyma and airways: Mild peripheral and basilar reticular interstitial change, likely repres enting chronic interstitial lung disease minimal airway debris. Bronchial wall thickening. Thoracic inlet, axillae and chest wall: No thyroid or soft tissue mass. No axillary lymphadenopathy. Mediastinum: Patulous esophagus. Mildly dilated central pulmonary arteries as can be seen with pulmon jeffrey hypertension. Heart and pericardium: Aortic valve calcifications. Coronary artery calcifications: Mild. Pleura: No effusion or mass. Upper abdomen: No significant finding. Thoracic bones: No acute osseous finding in the chest. Stable mild height loss at T6. IMPRESSION: Mild chronic bronchial wall thickening may reflect a component of bronchitis. Consider aspiration in the differential. Mild chronic interstitial lung disease in a UIP pattern, with a patulous esophagus, correlate for his tory of scleroderma. Ascending thoracic aortic ectasia. Reviewed, dictated and finalized at location K. IMPRESSION: Mild chronic bronchial wall thickening may reflect a component of bronchitis. C onsider aspiration in the differential. Mild chronic interstitial lung disease in a UIP pattern, with a patulous esopha balbir, correlate for history of scleroderma. Ascending thoracic aortic ectasia.
[2024-08-29 13:57] VITALS: BP 103/51; PULSE 99; RESP 18; TEMP 36.6; O2SAT 97
--- NOTE | 2024-08-29 14:03 | ED_ITS ---
HPI - Abdominal Pain General Chief Complaint: Abdominal Pain <JAD Delgado Last Filed: 08/29/24 14:07> Stated Complaint: abdominal pain <JAD Delgado Last Filed: 08/29/24 14:07> Time Seen by Provider: 08/29/24 14:03 <JAD Delgado Last Filed: 08/29/24 14:07> Focused HPI: Patient is an 83-year-old male, with past medical history of hypertension, diabetes, CKD, AFIB, who presents to the ED with c/o nausea and generalized weakness. patient reports he feels very weak and fatigued. Reports nausea, queasiness in his abdomen. Was seen in the ED here 2 days ago for similar symptoms, improved with Zofran. otherwise workup was reassuring. He denies significant abdominal pain, vomiting, constipation. Reports some diarrhea. Denies fevers. Reports mild shortness of breath. Denies chest pain. GENERAL: Elderly, mildly ill/weak-appearing, well-nourished, and in no acute distress. HEAD: Normocephalic, atraumatic. CHEST: Clear to auscultation. ?Decreased lung sounds in bases yoon. No focal rhonchi HEART: Regular rate and rhythm.? NEURO: ?Alert and oriented x3. No focal deficits. Patient screened in triage and initial orders placed.? ?Additional care and disposition to be based upon?diagnostic testing and treatment. <JAD Delgado Last Filed: 08/29/24 14:07> Source: patient <JAD Delgado Last Filed: 08/29/24 14:07> Mode of arrival: ambulatory <JAD Delgado Last Filed: 08/29/24 14:07> Limitations: no limitations <JAD Delgado Last Filed: 08/29/24 14:07> History of Present Illness HPI narrative: agree with MSE. Patient has had productive cough and congestion. States he had some exertional dyspnea earlier today but does not feel short of breath on my exam. Denies focal abdominal pain. Patient's is at bedside and states that the patient has not been eating or drinking well and has been lying in bed a lot. <Selene Munoz PA-C - Last Filed: 08/30/24 02:48> agree with MSE <Clementina Joseph MD - Last Filed: 08/29/24 20:07> Related Data Home Medications: Home Medications ?Medication ?Instructions ?Recorded ?Confirmed ?Last Taken ?Type insulin aspart U-100 100 unit/mL 8 unit subcut TID 06/19/22 08/29/24 08/26/24 History (3 mL) subcutaneous pen (Novolog FlexPen U-100 Insulin aspart) insulin glargine 100 unit/mL (3 28 unit subcut QHS 06/19/22 08/29/24 08/27/24 History mL) subcutaneous pen (Lantus Solostar U-100 Insulin) pantoprazole 40 mg tablet,delayed 40 mg PO DAILY 06/19/22 08/29/24 08/28/24 History release abiraterone 250 mg tablet 1,000 mg PO HS 03/26/24 08/29/24 07/20/24 History carvedilol 12.5 mg tablet 12.5 mg PO Q12H 03/26/24 08/29/24 08/28/24 History chlorthalidone 25 mg tablet 25 mg PO DAILY 03/26/24 08/29/24 Unknown History dorzolamide 22.3 mg-timolol 6.8 1 drp EACH EYE Q12H 03/26/24 08/29/24 08/28/24 History mg/mL eye drops insulin aspart U-100 100 unit/mL 1 sliding scale dose subcut TID 03/26/24 08/29/24 08/28/24 History (3 mL) subcutaneous pen (Novolog FlexPen U-100 Insulin aspart) lisinopril 20 mg tablet 40 mg PO DAILY 03/26/24 08/29/24 07/20/24 History pravastatin 20 mg tablet 20 mg PO HS 03/26/24 08/29/24 08/26/24 History sitagliptin phosphate 25 mg tablet 25 mg PO DAILY 03/26/24 08/29/24 08/26/24 History (Januvia) <Kavitha Marks PA-C - Last Filed: 08/29/24 14:07> Allergies/Adverse Reactions: Allergies Allergy/AdvReac Type Severity Reaction Status Date / Time No Known Drug Allergies Allergy Unknown Other Verified 08/29/24 17:26 <Kavitha Marks PA-C - Last Filed: 08/29/24 14:07> Review of Systems 2 Review of Systems: All systems reviewed & are unremarkable except as noted in HPI and below <Clementina Joseph MD - Last Filed: 08/29/24 20:07> [facility] Past Medical History Medical History: Medical History Esophageal ulcer Chronic kidney disease, stage 3 Paroxysmal atrial fibrillation Gastroesophageal reflux disease 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 He smokes 1-2 cigarettes per day most days. He denies marijuana use or other drug use. He drinks 1-2 alcoholic drinks per week. He has cats. Code status -full Surrogate decision maker - Years smoked: 50 Smoking status: Former smoker Tobacco type: cigarettes Second hand tobacco smoke exposure: Yes Smoking end date: 08/11/03 Additional smoking assessment comments: marijuana daily and regular cigarettes smokes intermittently Alcohol intake: never Drinks per week: 1 Substance use: never Substance use type: marijuana Other substance usage details: smoke once a day Last use: 07/30/2023 Do You Feel Safe in your Home?: Yes Lack of Transportation: No Lack of Food: Never True Current Housing: I Have Housing Concerned About Future Housing: No Difficulty Paying Gas/Electric Bills: No Difficulty Paying for Meds: No Currently Unemployed: No Education: High School Diploma/GED Difficulty w/ Childcare or Family Care: No Spiritual care concerns: No <Kavitha Marks PA-C - Last Filed: 08/29/24 14:07> Exam 2 Narrative: EXAMINATION OF ORGAN SYSTEMS/BODY AREAS: Constitutional: Vital signs per nursing GENERAL: Appears tired HEAD: Normal with no signs of head trauma. EYES: EOMI, conjunctiva normal ENT: Hearing grossly intact LUNGS: Nonlabored breathing. Coughing frequently. Rhonchi lower lung abebe HEART: [Regular rate and rhythm] ABD: [Soft], [nontender to palpation] EXT: Normal range of motion SKIN: [No rashes or lesions.] NEURO: [Alert and oriented x 3. No gross focal sensory or strength deficits.] PSYCH: Normal affect <Clementina Joseph MD - Last Filed: 08/29/24 20:07> Course PATHOLOGY MANAGER/PA Physician Supervision I agree with midlevel documentation; I performed the medical decision making component of this evaluation. <Clementina Joesph MD - Last Filed: 08/29/24 20:07> Reevaluation(s) Reevaluation #1: Labs reviewed, imaging showing possible aspiration pneumonia which reflects patient coughing and rhonchi in lower lung abebe. Patient and would like him to get better, I discussed findings with patient and that we will start antibiotics and admit for physical therapy/occupational therapy until he is better. Hospitalist accepts. <Clementina Joseph MD - Last Filed: 08/29/24 20:07> Vital Signs Vital signs: Vital Signs Temperature 97.8 F 08/29/24 13:57 Pulse Rate 99 08/29/24 13:57 Respiratory Rate 18 08/29/24 13:57 Blood Pressure 103/51 L 08/29/24 13:57 Pulse Oximetry 97 08/29/24 13:57 Oxygen Delivery Room Air 08/29/24 13:57 Temperature 98.0 F 08/29/24 21:42 Pulse Rate 107 H 08/29/24 21:42 Respiratory Rate 18 08/29/24 21:42 Blood Pressure 129/63 08/29/24 21:42 Pulse Oximetry 96 08/29/24 21:42 Oxygen Delivery Room Air 08/29/24 13:57 <Kavitha Marks PA-C - Last Filed: 08/29/24 14:07> Vital Signs Temperature 97.8 F 08/29/24 13:57 Pulse Rate 99 08/29/24 13:57 Respiratory Rate 18 08/29/24 13:57 Blood Pressure 103/51 L 08/29/24 13:57 Pulse Oximetry 97 08/29/24 13:57 Oxygen Delivery Room Air 08/29/24 13:57 Temperature 98.0 F 08/29/24 21:42 Pulse Rate 107 H 08/29/24 21:42 Respiratory Rate 18 08/29/24 21:42 Blood Pressure 129/63 08/29/24 21:42 Pulse Oximetry 96 08/29/24 21:42 Oxygen Delivery Room Air 08/29/24 13:57 <Selene Munoz PA-C - Last Filed: 08/30/24 02:48> Vital Signs Temperature 97.8 F 08/29/24 13:57 Pulse Rate 99 08/29/24 13:57 Respiratory Rate 18 08/29/24 13:57 Blood Pressure 103/51 L 08/29/24 13:57 Pulse Oximetry 97 08/29/24 13:57 Oxygen Delivery Room Air 08/29/24 13:57 Temperature 98.0 F 08/29/24 21:42 Pulse Rate 107 H 08/29/24 21:42 Respiratory Rate 18 08/29/24 21:42 Blood Pressure 129/63 08/29/24 21:42 Pulse Oximetry 96 08/29/24 21:42 Oxygen Delivery Room Air 08/29/24 13:57 <Clementina Joseph MD - Last Filed: 08/29/24 20:07> MDM - Abdominal Pain MDM Narrative Medical decision making narrative: MSE by DANNA in triage. <JAD Delgado Last Filed: 08/29/24 14:07> MSE by DANNA in triage. 83-year-old male with history of AFib, CKD, hypertension, hyperlipidemia, type 2 diabetes presents to the emergency department for generalized weakness and nausea for the past several days. Patient was evaluated in our ED on 08/27/2024 for the same complaints. Had a negative workup at that time, improved with Zofran and fluids, ambulated at his baseline and tolerate p.o. intake and was discharged home. He presents again today because he is not tolerating p.o. and continues to feel weak. On exam patient is frequently coughing and does have some rhonchi in the lower lung abebe. He is satting 97% on room air in respiratory distress. Abdomen is soft and nontender. Vitals with soft blood pressure 103/51, likely dehydration, otherwise vital stable. Lab work with mild leukocytosis of 10.9. Hemoglobin is 10.5 consistent with baseline. Chemistries with baseline CKD. His BNP is elevated to 5390, however patient does not appear to be volume overloaded on exam. UA without UTI or RBCs. Viral swabs are negative. Lactic acid normal at 1. EKG shows AFib with RVR 1, normal QRS duration, normal QTC, no ischemic changes. Troponin within normal limits. Chest x-ray shows right basilar atelectasis versus pneumonia. Given abnormal chest x-ray findings and no other source for patient's generalized weakness at this time, will add on CT chest for further clarification. CT chest shows IMPRESSION: Mild chronic bronchial wall thickening may reflect a component of bronchitis. Consider aspiration in the differential. Mild chronic interstitial lung disease in a UIP pattern, with a patulous esophagus, correlate for history of scleroderma. Ascending thoracic aortic ectasia. Will start the patient on Zosyn to cover aspiration pneumonia. Plan to admit to the hospitalist for further workup and management, PT/OT, speech consult. Discussed with hospitalist PATHOLOGY MANAGER, [place], who agrees to admission. Advises to the make the patient NPO except ice chips and sips until cleared by speech. <Selene Munoz PA-C - Last Filed: 08/30/24 02:48> Lab Data Result diagrams: 08/29/24 14:09 08/29/24 14:09 <Kavitha Marks PA-C - Last Filed: 08/29/24 14:07> Labs: Lab Results 08/29/24 08/29/24 Range/Units 14:06 14:09 WBC 10.9 H (4.5-10.0) K/mm3 RBC 3.95 L (4.6-6.20) M/mm3 Hgb 10.5 L (14.0-18.0) g/dL Hct 33.5 L (42.0-52.0) % MCV 84.8 (80-100) fl MCH 26.6 (26-34) pg MCHC 31.3 L (32-36) g/dl RDW 14.3 (11.5-14.5) % Plt Count 384 H (150-375) k/mm3 MPV 9.5 (7.4-10.4) fl Immature Gran % (Auto) 0.6 H (0-0.5) % Neut % (Auto) 71.7 (45.5-73.1) % Lymph % (Auto) 13.6 L (18.3-44.2) % [place] % (Auto) 11.3 H (2.6-8.5) % Eos % (Auto) 2.5 (0-4.4) % Baso % (Auto) 0.3 (0.2-1.2) % Lymph # (Auto) 1.48 (0.9-3.2) K/mm3 [place] # (Auto) 1.2 H (0.1-0.6) K/mm3 Eos # (Auto) 0.3 (0-0.3) K/mm3 Baso # (Auto) 0.0 (0.0-0.1) K/mm3 Abs Immat Gran (auto) 0.07 H (0.00-0.031) K/mm3 Absolute Neuts (auto) 7.8 H (1.3-6.7) K/mm3 Absolute Nucleated RBC 0.000 (0.0-0.012) K/mm3 Nucleated RBC % 0.0 (0.0-0.2) % PT 13.6 (11.1-14.7) Seconds INR 1.0 APTT 34.2 (22.3-36.8) Seconds Sodium 130 L (137-145) mmol/L Potassium 3.7 (3.4-5.0) mmol/L Chloride 99 (98-107) mmol/L Carbon Dioxide 21 L (22-30) mmol/L Anion Gap 10 (4-12) mmol/L BUN 32 H (9-20) mg/dL Creatinine 2.60 H (0.7-1.3) mg/dL Estim Creat Clear Calc 20 ml/min Estimated GFR 24 L (59 - ) Glucose 173 H (65-110) mg/dL POC Capillary Glucose 176 H (65-105) mg/dl Lactic Acid 1.0 (0.7-2.0) mmol/L Calcium 8.2 L (8.4-10.2) mg/dL Total Bilirubin 0.5 (0.2-1.3) mg/dL AST 22 (17-59) U/L ALT 16 (6-50) U/L Alkaline Phosphatase 105 (38-126) U/L Troponin I 0.031 (0.000-0.034) ng/mL NT-Pro-B Natriuret Pep 5390 H (19.9-100) pg/mL Total Protein 6.0 L (6.3-8.2) g/dL Albumin 3.3 L (3.5-5.1) g/dL Lipase 134 (23-300) U/L Influenza A (RT-PCR) Negative (Negative) Influenza B (RT-PCR) Negative (Negative) RSV (RT-PCR) Negative (Negative) SARS-CoV-2 RNA (RT-PCR) Negative (Negative) <Kavitha Marks PA-C - Last Filed: 08/29/24 14:07> Lab Results 08/29/24 08/29/24 Range/Units 14:06 14:09 WBC 10.9 H (4.5-10.0) K/mm3 RBC 3.95 L (4.6-6.20) M/mm3 Hgb 10.5 L (14.0-18.0) g/dL Hct 33.5 L (42.0-52.0) % MCV 84.8 (80-100) fl MCH 26.6 (26-34) pg MCHC 31.3 L (32-36) g/dl RDW 14.3 (11.5-14.5) % Plt Count 384 H (150-375) k/mm3 MPV 9.5 (7.4-10.4) fl Immature Gran % (Auto) 0.6 H (0-0.5) % Neut % (Auto) 71.7 (45.5-73.1) % Lymph % (Auto) 13.6 L (18.3-44.2) % [place] % (Auto) 11.3 H (2.6-8.5) % Eos % (Auto) 2.5 (0-4.4) % Baso % (Auto) 0.3 (0.2-1.2) % Lymph # (Auto) 1.48 (0.9-3.2) K/mm3 [place] # (Auto) 1.2 H (0.1-0.6) K/mm3 Eos # (Auto) 0.3 (0-0.3) K/mm3 Baso # (Auto) 0.0 (0.0-0.1) K/mm3 Abs Immat Gran (auto) 0.07 H (0.00-0.031) K/mm3 Absolute Neuts (auto) 7.8 H (1.3-6.7) K/mm3 Absolute Nucleated RBC 0.000 (0.0-0.012) K/mm3 Nucleated RBC % 0.0 (0.0-0.2) % PT 13.6 (11.1-14.7) Seconds INR 1.0 APTT 34.2 (22.3-36.8) Seconds Sodium 130 L (137-145) mmol/L Potassium 3.7 (3.4-5.0) mmol/L Chloride 99 (98-107) mmol/L Carbon Dioxide 21 L (22-30) mmol/L Anion Gap 10 (4-12) mmol/L BUN 32 H (9-20) mg/dL Creatinine 2.60 H (0.7-1.3) mg/dL Estim Creat Clear Calc 20 ml/min Estimated GFR 24 L (59 - ) Glucose 173 H (65-110) mg/dL POC Capillary Glucose 176 H (65-105) mg/dl Lactic Acid 1.0 (0.7-2.0) mmol/L Calcium 8.2 L (8.4-10.2) mg/dL Total Bilirubin 0.5 (0.2-1.3) mg/dL AST 22 (17-59) U/L ALT 16 (6-50) U/L Alkaline Phosphatase 105 (38-126) U/L Troponin I 0.031 (0.000-0.034) ng/mL NT-Pro-B Natriuret Pep 5390 H (19.9-100) pg/mL Total Protein 6.0 L (6.3-8.2) g/dL Albumin 3.3 L (3.5-5.1) g/dL Lipase 134 (23-300) U/L Influenza A (RT-PCR) Negative (Negative) Influenza B (RT-PCR) Negative (Negative) RSV (RT-PCR) Negative (Negative) SARS-CoV-2 RNA (RT-PCR) Negative (Negative) <Selene Munoz PA-C - Last Filed: 08/30/24 02:48> Lab Results 08/29/24 08/29/24 Range/Units 14:06 14:09 WBC 10.9 H (4.5-10.0) K/mm3 RBC 3.95 L (4.6-6.20) M/mm3 Hgb 10.5 L (14.0-18.0) g/dL Hct 33.5 L (42.0-52.0) % MCV 84.8 (80-100) fl MCH 26.6 (26-34) pg MCHC 31.3 L (32-36) g/dl RDW 14.3 (11.5-14.5) % Plt Count 384 H (150-375) k/mm3 MPV 9.5 (7.4-10.4) fl Immature Gran % (Auto) 0.6 H (0-0.5) % Neut % (Auto) 71.7 (45.5-73.1) % Lymph % (Auto) 13.6 L (18.3-44.2) % [place] % (Auto) 11.3 H (2.6-8.5) % Eos % (Auto) 2.5 (0-4.4) % Baso % (Auto) 0.3 (0.2-1.2) % Lymph # (Auto) 1.48 (0.9-3.2) K/mm3 [place] # (Auto) 1.2 H (0.1-0.6) K/mm3 Eos # (Auto) 0.3 (0-0.3) K/mm3 Baso # (Auto) 0.0 (0.0-0.1) K/mm3 Abs Immat Gran (auto) 0.07 H (0.00-0.031) K/mm3 Absolute Neuts (auto) 7.8 H (1.3-6.7) K/mm3 Absolute Nucleated RBC 0.000 (0.0-0.012) K/mm3 Nucleated RBC % 0.0 (0.0-0.2) % PT 13.6 (11.1-14.7) Seconds INR 1.0 APTT 34.2 (22.3-36.8) Seconds Sodium 130 L (137-145) mmol/L Potassium 3.7 (3.4-5.0) mmol/L Chloride 99 (98-107) mmol/L Carbon Dioxide 21 L (22-30) mmol/L Anion Gap 10 (4-12) mmol/L BUN 32 H (9-20) mg/dL Creatinine 2.60 H (0.7-1.3) mg/dL Estim Creat Clear Calc 20 ml/min Estimated GFR 24 L (59 - ) Glucose 173 H (65-110) mg/dL POC Capillary Glucose 176 H (65-105) mg/dl Lactic Acid 1.0 (0.7-2.0) mmol/L Calcium 8.2 L (8.4-10.2) mg/dL Total Bilirubin 0.5 (0.2-1.3) mg/dL AST 22 (17-59) U/L ALT 16 (6-50) U/L Alkaline Phosphatase 105 (38-126) U/L Troponin I 0.031 (0.000-0.034) ng/mL NT-Pro-B Natriuret Pep 5390 H (19.9-100) pg/mL Total Protein 6.0 L (6.3-8.2) g/dL Albumin 3.3 L (3.5-5.1) g/dL Lipase 134 (23-300) U/L Influenza A (RT-PCR) Negative (Negative) Influenza B (RT-PCR) Negative (Negative) RSV (RT-PCR) Negative (Negative) SARS-CoV-2 RNA (RT-PCR) Negative (Negative) <Clementina Joseph MD - Last Filed: 08/29/24 20:07> Imaging Data Radiologist's impression: ITS Impressions Chest X-Ray 08/29/24 15:02 IMPRESSION: Right basilar atelectasis versus pneumonia. Chest CT 08/29/24 19:06 IMPRESSION: Mild chronic bronchial wall thickening may reflect a component of bronchitis. Consider aspiration in the differential. Mild chronic interstitial lung disease in a UIP pattern, with a patulous esophagus, correlate for history of scleroderma. Ascending thoracic aortic ectasia. <Kavitha Marks PA-C - Last Filed: 08/29/24 14:07> ITS Impressions Chest X-Ray 08/29/24 15:02 IMPRESSION: Right basilar atelectasis versus pneumonia. Chest CT 08/29/24 19:06 IMPRESSION: Mild chronic bronchial wall thickening may reflect a component of bronchitis. Consider aspiration in the differential. Mild chronic interstitial lung disease in a UIP pattern, with a patulous esophagus, correlate for history of scleroderma. Ascending thoracic aortic ectasia. <Selene Munoz PA-C - Last Filed: 08/30/24 02:48> ITS Impressions Chest X-Ray 08/29/24 15:02 IMPRESSION: Right basilar atelectasis versus pneumonia. Chest CT 08/29/24 19:06 IMPRESSION: Mild chronic bronchial wall thickening may reflect a component of bronchitis. Consider aspiration in the differential. Mild chronic interstitial lung disease in a UIP pattern, with a patulous esophagus, correlate for history of scleroderma. Ascending thoracic aortic ectasia. <Clementina Joseph MD - Last Filed: 08/29/24 20:07> Discharge Plan Discharge Clinical Impression: Adult failure to thrive Aspiration pneumonia Qualifiers: Aspiration pneumonia type: unspecified Laterality: unspecified laterality Lung location: unspecified part of lung Qualified Code(s): J69.0 - Pneumonitis due to inhalation of food and vomit <Kavitha Marks PA-C - Last Filed: 08/29/24 14:07> Patient Disposition: Still a Patient <JAD Delgado Last Filed: 08/29/24 14:07> Condition: Stable <JAD Delgado Last Filed: 08/29/24 14:07>
--- NOTE | 2024-08-29 14:04 | ECG_ITS ---
Test Date: 2024-08-29 15:01:45 Measurements Intervals [place] Rate: 101 P: 0 RI: 0 QRS: -49 QRSD: 136 T: 30 QT: 354 QTc: 460 Interpretive Statements ATRIAL FIBRILLATION WITH RAPID VENTRICULAR RESPONSE INDETERMINATE AXIS RIGHT BUNDLE BRANCH BLOCK [120+ ms QRS DURATION, UPRIGHT V1, 40+ ms S IN I/aVL/V4/V5/V6] ABNORMAL ECG Compared to ECG 07/30/2024 19:06:09 Indeterminate axis now present Right bundle-branch block now present Electronically Signed On 08-30-2024 08:16:52 CDT by Joseph Marsh M.D.
--- OUTSIDE RECORDS SUMMARY | 2024-08-29 14:05 | XMS_ITS | Encounter Summary ---
Author Organization [facility] Healthcare Address [address] [place] [address] Care Team Providers Care Hvac Design Mechanical Engineer Name Role Phone Kraig Ching MD Primary Care Provider [phone] Gautam Cope MD Unavailable Tramaine Roe MD Unavailable [phone] Sukhwinder Uribe MD Unavailable [phone] Shay Guillermo MD Unavailable [phone] Marsha Landis RN Unavailable Unavailab le Reason for Visit * Reason Onset Date Comments Medical Question/Miscellaneous 08/21/2024 Encounter Details Date Type Department Care Team (Late st Contact Info) Description 08/21/2024 Telephone [facility] [address] [place] [address] Kraig Ching MD [address] [place] [address] Medical Question/Miscellaneous Social History Tobacco Use Types Packs/Day Years Used Date Smoking Tobacco: Former Cigarettes 0.3 52 1 958 - 2010 Passive Smoke Exposure: Past Smokeless Tobacco: Never Comments:Smoking History Pac ks/day: 10 Cigarettes Alcohol Use Standard Drinks/Week Comments Yes 0 (1 standard drink = 0.6 oz pur e alcohol) Occasional glass of wine. [facility] Utilities Answer Date Recorded In the past 12 months has [employer] electric, gas, oil, or water company threatened [...] often do you attend chur ch or islam services? Never 04/04/2024 Do you belong to [...] any time in the past 12 m [facility], were you homeless or living in a half-way (including now)? No 04/04/2024 Personal Safety Answer Date Recorded Have you ever been in or are you currently in a harmful physical or emotional relationship or is someone making you feel afraid or unsafe? 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 He can uber however it is too expensive and hewill be going 3 days a week and has not issues with driving and drives to Dr. Encarnacion office oftenand they advised him that he will need something from provider advising he can drive to the location for rehab. Patient would like a call to discuss further.The rehab center is located at [address] [place] [id number] Does message need to be routed? Yes-Action Needed documented in this encounter Plan of Treatment Not on file documented as of this encounter Goals Goal Patient Goal Type Associated Problems Recent Progress Patient-Stated? Author ZAK General Goal - Patient establishes care with [facility] ACO Care Management On track(2023 1:22 PM JUNIOR ACCOUNTING CLERK) No Clarissa Luna RN Note: Problem: Lack of [facility] communication Interventions: - Provide coordination between [facility] company and patient. - Ensure [facility] has appropriate referral and orders to establish care with patient. - Follow up with patient to ensure initial visit was completed by [facility] and that a [facility] plan has been started. [facility]AK General Goal - Patient schedules and keeps appointments with all recommended providers ACO Care Management Improving( 1:22 PM JUNIOR ACCOUNTING CLERK) Clarissa Arana RN Note: Problem: Potential for [...] on filedocumented in this encounter Care Teams Hvac Design Mechanical Engineer Relationship Specialty Start Date End Date Kraig Ching MD [address] [place] [address] PCP - General 07/10/16 Gautam Cope MD [address] [place] [address] Medical Oncologist/Speech Therapist Early Intervention Medical Oncology 08/18/18 Tramaine Roe MD [address] [place] [address] Referring Physician Urology 08/18/18 Sukhwinder Uribe MD [address] [place] [address] Consulting Physician Urology 08/18/18 Shay Guillermo MD [address] [place] [address] Referring Physician Urology 08/18/18 Marsha Landis, RN Registered Nurse 11/17/18 documented as of this encounter
--- OUTSIDE RECORDS SUMMARY | 2024-08-29 14:05 | XMS_ITS | Clinical Summary ---
Author Organization [facility] Address [address] [place] [address] Care Team Providers Care Interior Painter Name Role Phone Unavailable Primary Care Provider [...]
--- OUTSIDE RECORDS SUMMARY | 2024-08-29 14:05 | XMS_ITS | Encounter Summary ---
Author Organization [facility] Address [address] [place] [address] Phone Care Team Providers Care Property Maintenance Technician Name Role Phone Kraig Ching MD Primary Care Provider [phone] Gautam Cope MD Unavailable Tramaine Roe MD Unavailable [phone] Sukhwinder Uribe MD Unavailable [phone] Shay Guillermo MD Unavailable [phone] Marsha Landis RN Unavailable Unavailab Ilene Kaur RN Unavailable [phone] Clarissa Luna RN Unavailable [phone] Encounter Details Date Type Department Care Team (Late st Contact Info) Description 12/06/[address] 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 Gender Identity Not on file Sexual Orientation Not on file documented as of this encounter Plan of Treatment Not on file documented as of this encounter Visit Diagnoses Not on filedocumented in this encounter Care Teams Property Maintenance Technician Relationship Specialty Start Date End Date Kraig Ching MD [address] [place] [address] PCP - General 07/10/16 Gautam Cope MD [address] [place] [address] Medical Oncologist/Bird Trapper Medical Oncology 08/18/18 Tramaine Roe MD [address] [place] [address] Referring Physician Urology 08/18/18 Sukhwinder Uribe MD [address] [place] [address] Consulting Physician Urology 08/18/18 Shay Guillermo MD [address] [place] [address] Referring Physician Urology 08/18/18 Marsha Landis, RN Registered Nurse 11/17/18 Ilene Fragoso RN [address] [place] [address] Fleet Maintenance Manager 12/23/18 11/01/19 Clarissa Luna RN [address] [place] [address] Fleet Maintenance Manager 04/04/24 04/26/24 documented as of this encounter
--- OUTSIDE RECORDS SUMMARY | 2024-08-29 14:05 | XMS_ITS | Encounter Summary ---
Author Organization [facility] Address [address] [place] [address] Care Team Providers Care Electrician Locomotive Name Role Phone Kraig Ching MD Primary Care Provider Gautam Cope MD Unavailable Tramaine Roe MD Unavailable [phone] Sukhwinder Uribe MD Unavailable [phone] Shay Guillermo MD Unavailable [phone] Marsha Landis RN Unavailable Unavailab le Encounter Details Date Type Department Care Team (Late st Contact Info) Description 07/21/2024 Results Follow-Up [facility] Con[facility]ient Care at [address] [address] Fadi Corrales NP [address] [place] [address] [address] [place] [address] Urine culture Urine, clean voided Social History Tobacco Use Types Packs/Day Years Used Date Smoking Tobacco: Former Cigarettes 0.3 52 1 958 - 2010 Passive Smoke Exposure: Past Smokeless Tobacco: Never Comments:Smoking History Pac ks/day: 10 Cigarettes Alcohol Use Standard Drinks/Week Comments Yes 0 (1 standard drink = 0.6 oz pur e alcohol) Occasional glass of wine. [facility] Utilities Answer Date Recorded In the past 12 months has [email or web address] electric, gas, oil, or water company threatened [...] often do you attend chur ch or orthodoxy services? Never 04/04/2024 Do you belong to any clubs o r organizations such as religion groups, unions, fraternal or athletic groups, or [...] in the past [address] 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 Author ZAK General Goal - Patient establishes care with [facility] ACO Care Management On track(2023 1:22 PM PROCUREMENT PROFESSIONAL LOGISTICS) No Clarissa Luna RN Note: Problem: Lack of [facility] communication Interventions: - Provide coordination between [facility] company and patient. - Ensure [facility] has appropriate referral and orders to establish care with patient. - Follow up with patient to ensure initial visit was completed by [facility] and that a [facility] plan has been started. ZAK General Goal - Patient schedules and keeps appointments with all recommended providers ACO Care Management Improving( 1:22 PM PROCUREMENT PROFESSIONAL LOGISTICS) No Clarissa Luna RN Note: Problem: Potential [...] on filedocumented in this encounter Care Teams Electrician Locomotive Relationship Specialty Start Date End Date Kraig Ching MD [address] [facility] [address] [place] [address] PCP - General 07/10/16 Gautam Cope MD [address] [facility] [address] [place] [address] Medical Oncologist/Panelboard Operator Medical Oncology 08/18/18 Tramaine Roe MD [address] [facility] [address] [place] [address] Referring Physician Urology 08/18/18 Sukhwinder Uribe MD [address] [facility] [address] [place] [address] Consulting Physician Urology 08/18/18 Shay Guillermo MD [address] [facility] [address] [place] [address] Referring Physician Urology 08/18/18 Marsha Landis, RN Registered Nurse 11/17/18 documented as of this encounter
--- OUTSIDE RECORDS SUMMARY | 2024-08-29 14:05 | XMS_ITS | Encounter Summary ---
Author Organization [facility] Address [address] [place] [address] Care Team Providers Care Shingle Catcher Name Role Phone Kraig Ching MD Primary Care Provider [phone] Gautam Cope MD Unavailable Tramaine Roe MD Unavailable [phone] Sukhwinder Uribe MD Unavailable [phone] Shay Guillermo MD Unavailable Marsha Landis RN Unavailable Unavailab le Encounter Details Date Type Department Care Team (Late st Contact Info) Description 08/28/2024 Orders Only [facility] [address] [place] [address] Scanning, Provider Social History Tobacco Use Types Packs/Day Years Used Date Smoking Tobacco: Former Cigarettes 0.3 52 1 958 - 2009 Passive Smoke Exposure: Past Smokeless Tobacco: Never Comments:Smoking History Pac ks/day: 10 Cigarettes Alcohol Use Standard Drinks/Week Comments Yes 0 (1 standard drink = 0.6 oz pur e alcohol) Occasional glass of wine. [facility] Utilities Answer Date Recorded In the past 12 months has [employer] electric, gas, oil, or water company threatened [...] often do you attend chur ch or pentecostal services? 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 Author ZAK General Goal - Patient establishes care with [facility] ACO Care Management On track(2023 1:22 PM POWER HAMMER OPERATOR) No Clarissa Luna RN Note: Problem: [facility] of [facility] providers ACO Care Management Improving( 1:22 PM POWER HAMMER OPERATOR) No Clarissa Luna RN Note: Problem: [...] Date/Time Associated Diagnosis Comments SCAN - RADIOLOGY/IMAGING 08/28/2024 9:30 AM CDT SCAN - RADIOLOGY/IMAGING 08/28/2024 9:03 AM CDT documented in this encounter Results * SCAN - RADIOLOGY/IMAGING (08/28/2024 9:30 AM CDT) Anatomical Region Laterality Modality Other us Provider Scanning Final Result * SCAN - RADIOLOGY/IMAGING (08/28/2024 9:03 AM CDT) Anatomical Region Laterality Modality Other us Provider Scanning Final Result documented in this encounter Visit Diagnoses Not on filedocumented in this encounter Care Teams Shingle Catcher Relationship Specialty Start Date End Date Kraig Ching MD [address] [place] [address] PCP - General 07/10/16 Gautam Cope MD [address] [place] [address] Medical Oncologist/Stencil Machine Operator Medical Oncology 08/18/18 Tramaine Roe MD [address] [place] [address] Referring Physician Urology 08/18/18 Sukhwinder Uribe MD [address] [place] [address] Consulting Physician Urology 08/18/18 Shay Guillermo MD [address] [place] [address] Referring Physician Urology 08/18/18 Marsha Landis, RN Registered Nurse 11/17/18 documented as of this encounter
--- OUTSIDE RECORDS SUMMARY | 2024-08-29 14:05 | XMS_ITS | Encounter Summary ---
Author Organization [facility] Address [address] [place] [address] Phone Care Team Providers Care Chief Sustainability Officer Name Role Phone Kraig Ching MD Primary Care Provider [phone] Gautam Cope MD Unavailable Tramaine Roe MD Unavailable [phone] Sukhwinder Uribe MD Unavailable [phone] Shay Guillermo MD Unavailable [phone] Marsha Landis RN Unavailable Unavailab Clarissa Harry RN Unavailable [phone] Encounter Details Date Type Department Care Team (Late st Contact Info) Description 12/09/2021 Telephone [facility] Oncology [address] [facility] Advanced Medicine 7th [place] [address] [place] [address] Muna Saleem RN Social History [...] on file 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 Gender Identity Not on file Sexual Orientation Not on file documented as of this encounter Functional Status documented as of this encounter Plan of Treatment Not on file documented as of this encounter Visit Diagnoses Not on filedocumented in this encounter Care Teams Chief Sustainability Officer Relationship Specialty Start Date End Date Kraig Ching MD [address] [place] [address] PCP - General 07/10/16 aGutam Cope MD [address] [place] [address] Medical Oncologist/Plant Equipment Engineer Medical Oncology 08/18/18 Tramaine Roe MD [address] [place] [address] Referring Physician Urology 08/18/18 Sukhwinder Uribe MD [address] [place] [address] Consulting Physician Urology 08/18/18 Shay Guillermo MD [address] [place] [address] Referring Physician Urology 08/18/18 Marsha Landis, RN Registered Nurse 11/17/18 Clarissa Luna RN [address] [place] [address] [address] [place] [address] Asset Coordinator 04/04/24 04/26/24 documented as of this encounter
--- OUTSIDE RECORDS SUMMARY | 2024-08-29 14:05 | XMS_ITS | Encounter Summary ---
Author Organization [facility] Address [address] [place] [address] Care Team Providers Care Batch Mixer Name Role Phone Kraig Ching MD Primary Care Provider [phone] Gautam Cope MD Unavailable Tramaine Roe MD Unavailable [phone] Sukhwinder Uribe MD Unavailable [phone] Shay Guillermo MD Unavailable [phone] Marsha Landis RN Unavailable Unavailab le Reason for Visit * Reason Onset Date Comments ZAK Questions 08/25/2024 Encounter Details Date Type Department Care Team (Late st Contact Info) Description 08/25/2024 Telephone [facility] [address] [facility] [address] [place] [address] Kraig Ching MD [address] [facility] [address] [place] [address] ZAK Questions Social History Tobacco Use Types Packs/Day Years Used Date Smoking Tobacco: Former Cigarettes 0.3 52 1 958 - 2010 Passive Smoke Exposure: Past Smokeless Tobacco: Never Comments:Smoking History Pac ks/day: 10 Cigarettes Alcohol Use Standard Drinks/Week Comments Yes 0 (1 standard drink = 0.6 oz pur e alcohol) Occasional glass of wine. [facility] Utilities Answer Date Recorded In [...] often do you attend chur ch or worship services? Never 04/04/2024 Do you belong to any clubs o r organizations such as judaism groups, unions, fraternal or athletic groups, or [...] were you homeless or living in a assisted (including now)? No 04/04/2024 Personal Safety Answer Date Recorded Have you ever been in or are you currently in a harmful physical or emotional relationship or is someone making you feel afraid or unsafe? 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 Yes Date Admitted: 08/01/24 Date Discharged: 08/19/24 Facility Admitted To: [facility] Reason for Stay? Kidney issues If prescribed [...] General Goal - Patient establishes care with [facility] ACO Care Management On track(2023 1:22 PM PHOTOVOLTAIC INSTALLER) Clarissa Arana, RN Note: Problem: Lack of [facility] communication Interventions: - Provide coordination between [facility] company and patient. - Ensure [facility] has appropriate referral and orders to establish care with patient. - Follow up with patient to ensure initial visit was completed by [facility] and that a [facility] plan has been started. ZAK General Goal - Patient schedules and keeps appointments with all recommended providers ACO Care Management Improving( 1:22 PM PHOTOVOLTAIC INSTALLER) Clarissa Arana RN Note: Problem: Potential for [...] on filedocumented in this encounter Care Teams Batch Mixer Relationship Specialty Start Date End Date Kraig Ching MD [address] [place] [address] PCP - General 07/10/16 Gautam Cope MD [address] [place] [address] Medical Oncologist/Palliative Care Coordinator Medical Oncology 08/18/18 Tramaine Roe MD [address] [place] [address] Referring Physician Urology 08/18/18 Sukhwinder Uribe MD [address] [place] [address] Consulting Physician Urology 08/18/18 Shay Guillermo MD [address] [facility] [address] [place] [address] Referring Physician Urology 08/18/18 Marsha Landis, RN Registered Nurse 11/17/18 documented as of this encounter
--- OUTSIDE RECORDS SUMMARY | 2024-08-29 14:05 | XMS_ITS | Encounter Summary ---
Author Organization [facility] Address [address] [place] [address] Care Team Providers Care Medical Lab Technician Name Role Phone Kraig Ching MD Primary Care Provider [phone] Gautam Cope MD Unavailable Tramaine Roe MD Unavailable [phone] Sukhwinder Uribe MD Unavailable [phone] Shay Guillermo MD Unavailable [phone] Marsha Landis RN Unavailable Unavailab le Reason for Visit * Reason Onset Date Comments Medical Question/Miscellaneous 08/24/2024 Encounter Details Date Type Department Care Team (Late st Contact Info) Description 08/24/2024 Telephone [facility] [address] [address] [place] [address] Kraig Ching MD [address] [facility] [address] [place] [address] Medical Question/Miscellaneous Social History Tobacco Use Types Packs/Day Years Used Date Smoking Tobacco: Former Cigarettes 0.3 52 1 958 - 2010 Passive Smoke Exposure: Past Smokeless Tobacco: Never Comments:Smoking History Pac ks/day: 10 Cigarettes Alcohol Use Standard Drinks/Week Comments Yes 0 (1 standard drink = 0.6 oz pur e alcohol) Occasional glass of wine. 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 - Ensure [facility] has appropriate referral and orders to establish care with patient. - Follow up with patient to ensure initial visit was completed by [facility] and that a [facility] plan has been started. ZAK General Goal - Patient schedules and keeps appointments with all recommended providers ACO Care Management Improving( 1:22 PM SUPERVISOR ALUM PLANT) No Clarissa Luna RN Note: Problem: Potential [...] filedocumented in this encounter Care Teams Medical Lab Technician Relationship Specialty Start Date End Date Kraig Ching MD [email or web address] [place] [address] PCP - General 07/10/16 Gautam Cope MD [email or web address] [place] [address] Medical Oncologist/Fruit Sorter Medical Oncology 08/18/18 Tramaine Roe MD [email or web address] [place] [address] Referring Physician Urology 08/18/18 Sukhwinder Uribe MD [email or web address] [place] [address] Consulting Physician Urology 08/18/18 Shay Guillermo MD [address] [email or web address] [address] [place] [address] Referring Physician Urology 08/18/18 Marsha Landis, RN Registered Nurse 11/17/18 documented as of this encounter
--- OUTSIDE RECORDS SUMMARY | 2024-08-29 14:05 | XMS_ITS | Referral Summary ---
Author Organization [facility] Address [address] [place] [address] Care Team Providers Care Category Manager Name Role Phone Kraig Ching MD Primary Care Provider [phone] Gautam Cope MD Unavailable Tramaine Roe MD Unavailable [phone] Sukhwinder Uribe MD Unavailable Shay Guillermo MD Unavailable Marsha Landis RN Unavailable Unavailab le Encounters Date Type Department Care Team Description 08/28/2024 Orders Only [facility] Health Information Management [address] [place] [phone] Scanning, Provider 08/25/2024 Telephone [facility] [address] [place] [phone] Kraig Ching MD ZAK Questions 08/24/2024 Telephone [facility] [address] [place] [address] [place] [phone] Kraig Ching MD Medical Question/Miscellaneous 08/21/2024 Telephone [facility] [address] [place] [address] [place] [phone] Kraig Ching MD Additional Services Or Orders 08/21/2024 Telephone [facility] [address] [place] [address] [place] [phone] Kraig Ching MD Medical Question/Miscellaneous 07/31/2024 Orders Only [facility] Health Information Management [address] [place] [address] Scanning, Provider 07/24/2024 Telephone [facility] Oncology [address] [place] [address] Floor [address] [place] [phone] Gautam Cope MD 07/22/2024 Orders Only [facility] Health Information Management [address] [place] [address] Scanning, Provider 07/21/2024 Results Follow-Up [facility] at [address] [phone] Fadi Corrales NP Urine culture Urine, clean voided 07/19/2024 7:45 PM CDT - 07/19/2024 11:59 PM CDT Hospital Encounter [address] [address] Urinary frequency Discharge Disposition: Discharge to home or self care 07/19/2024 2:00 PM CDT Office Visit [facility] [address] [phone] Clau Childers PA Urinary frequency (Primary Dx); Leukocytosis, unspecified type 07/18/2024 Patient Self-Triage [facility] [address] [place] [address] Mychart, Generic Provider 07/18/2024 1:00 PM CDT Office Visit [facility] Oncology [facility] Floor 5 [place] [phone] Gautam Cope MD Prostate cancer (HCC) (Primary Dx) 07/18/2024 12:00 PM CDT Lab [facility] - Lab Collection [address] [facility] Floor [address] [place] [address] Prostate cancer (HCC) 07/18/2024 1:45 PM CDT Infusion [facility] - Infusion [address] [facility] Floor 6 [place] [address] Prostate cancer (HCC) (Primary Dx) 07/01/2024 Orders Only [facility] Health Information Management [address] [place] [address] Scanning, Provider 06/14/2024 6:15 PM PLANS EXAMINER Lab [facility] Advanced [facility] ([facility]) [address] [place] [phone] GABRIELA (acute kidney injury) 06/14/2024 3:00 PM PLANS EXAMINER Office Visit [facility] Nephrology [address] [facility] 5th [place] [address] [place] [address] Lin Guerrero MD Chronic kidney disease, stage 3b (HCC) (Primary Dx); GABRIELA (acute kidney injury); Hypertension, essential; Secondary hyperparathyroidism of renal origin 06/08/2024 12:00 PM PLANS EXAMINER Lab [facility] Advanced Medicine ([facility]) [address] [place] [phone] Anemia in stage 3b chronic kidney disease (HCC); Hypertension, essential; Secondary hyperparathyroidism of renal origin; Stage 3 chronic kidney disease, unspecified whether stage 3a or 3b CKD (HCC); Primary hypertension; Vitamin D deficiency; Type 2 diabetes mellitus with stage 3a chronic kidney disease, with long-term current use of insulin ([facility]); Fatigue, unspecified type; GABRIELA (acute kidney injury) 06/08/2024 9:45 AM PLANS EXAMINER Office Visit [facility] [address] [place] [address] Kraig Ching MD Hypertension, essential (Primary Dx); [...] THREE TIMES DAILY BEFORE MEALS 3 mL 4 Active predniSONE (DELTASONE) 5 mg tablet [...] IN BOTH EYES TWICE DAILY 10 mL 4 Active albuterol HFA (PROVENTIL HFA,VENTOLIN HFA,PROAIR [...] mg total) by mouth daily 30 capsule 5 04/25/19 26 Active ergocalciferol (VITAMIN D) [...] 05/30/2024 Assessment & Plan (06/08/2024 4:46 AM PLANS EXAMINER): Continue current regimen.Limit nephrotoxins.Reviewed creatinine. Avoid NSAIDS. [...] 03/08/2023 Assessment & Plan (06/08/2024 4:46 AM PLANS EXAMINER): Hypertension is controlled. Continue current regimen. Assessment & Plan (10/05/2023 12:54 PM CDT): Hypertension is controlled. Decrease carvedilol to 12.5 mg. Assessment & Plan (03/08/2023 7:11 AM PLANS EXAMINER): Hypertension is controlled. Continue current regimen. 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 Avoid NSAIDS. Assessment & Plan (10/05/2023 5:50 AM CDT): Continue current regimen.Limit nephrotoxins.Reviewed creatinine. Avoid NSAIDS. Assessment & Plan (03/08/2023 7:12 AM PLANS EXAMINER): Continue current regimen.Limit nephrotoxins.Reviewed creatinine. Avoid NSAIDS. CKD (chronic kidney disease) 03/08/2022 Assessment & Plan (06/08/2024 4:45 AM PLANS EXAMINER): Limit nephrotoxins. Monitor creatinine. Avoid NSAIDS.Follow with Nephrology. Anemia in stage 3b chronic kidney disease 2021 Gastroesophageal reflux disease 04/08/2021 Assessment & Plan (03/08/2023 11:17 AM PLANS EXAMINER): Reviewed dietary modifications. Continue PPI. Assessment & Plan (08/18/2022 6:36 AM CDT): Reviewed dietary modifications. Continue PPI. Assessment & Plan (02/12/2022 6:03 AM CDT): Reviewed dietary modifications. Continue PPI. Assessment & Plan (04/08/2021 5:55 AM PLANS EXAMINER): Reviewed dietary modifications. Continue PPI. 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 Continue home PT exercises. Advised using a walker. Assessment & Plan (08/18/2022 11:47 AM CDT): Continue oxycodone. Continue home PT exercises. Advised using a walker. Assessment & Plan (02/12/2022 11:41 AM CDT): Continue oxycodone. Continue home PT exercises. A prescription for a walker. Assessment & Plan (04/08/2021 5:55 AM PLANS EXAMINER): Continue oxycodone. Continue home PT exercises. Continue walker. Assessment & Plan (12/26/2020 10:48 AM CDT): Continue oxycodone. Script for walker. Assessment & Plan (09/26/2020 11:29 AM CDT): Continue ROM exercises and follow with Pain Management. Refill oxycodone as needed. Prostate cancer 09/06/2018 Assessment & Plan (06/08/2024 4:46 AM PLANS EXAMINER): Follow with Oncology. Continue Zytiga. Assessment & [...] 01/25/2018 Assessment & Plan (03/07/2018 6:54 AM PLANS EXAMINER): Hypertension is controlled. Continue current regimen. CHF [...] creatinine. Assessment & Plan (04/08/2021 5:54 AM PLANS EXAMINER): Hypertension is controlled. Continue current regimen.Limit nephrotoxins. [...] NSAIDS. Assessment & Plan (03/07/2018 6:55 AM PLANS EXAMINER): Hypertension is controlled. Continue current regimen. Limit nephrotoxins. Monitor creatinine. Avoid NSAIDS. Assessment & Plan (11/25/2017 7:09 AM CDT): Limit nephrotoxins. Monitor creatinine. Avoid NSAIDS. Duodenal ulcer 11/25/2017 Assessment & Plan (11/25/2017 10:16 AM CDT): Reviewed GI note . Continue pantoprazole. Avoid NSAIDS. Refer for EGD. PAF (paroxysmal atrial fibrillation) 10/22/2017 Assessment & Plan (03/07/2018 6:54 AM PLANS EXAMINER): Continue rate control. Continue anticoagualtion. Anticipate starting [...] NSAIDS. Assessment & Plan (03/07/2018 6:55 AM PLANS EXAMINER): Limit nephrotoxins. Monitor creatinine. Avoid NSAIDS. Assessment [...] diet. Assessment & Plan (04/08/2021 10:17 AM PLANS EXAMINER): Reviewed HgBA1C elevated at 10.6 on 04/01/21. [...] therapy. Assessment & Plan (03/07/2018 6:57 AM PLANS EXAMINER): Continue pravastatin. He had myalgias on other [...] diet. Assessment & Plan (03/02/2017 6:53 AM PLANS EXAMINER): Hypertension is controlled. Continue current regimen. Reviewed low sodium diet. Assessment & Plan (01/15/2017 6:44 AM CDT): Reviewed proper diet. Continue statin therapy. Hyperlipidemia 01/12/2012 Assessment & Plan (06/08/2024 4:46 AM PLANS EXAMINER): Continue pravastatin. Order lipid panel at next [...] 05/28/2023 Assessment & Plan (03/08/2023 11:40 AM PLANS EXAMINER): Agree with cataract surgery. He has 1st [...] 08/30/2017 Assessment & Plan (03/02/2017 10:48 AM PLANS EXAMINER): Mood is improved. Monitor off medication. Impotence [...] 200. Assessment & Plan (03/07/2018 6:56 AM PLANS EXAMINER): Continue current regimen. Advised annual eye exam.Limit [...] 01/17/2019 Influenza, Unspecified 01/17/2019(Deferred: Daisy ent Refused) Zee ([employer]) SARS-CoV-2 Vaccination 06/14/2020, 06/14/2020 Pfizer SARS-CoV-2 [...] alcohol) Occasional glass of wine. [facility] [employer] Answer Date Recorded In the past 12 months has th e [employer], gas, oil, or water company threatened to [...] on file Legal Sex Male 4:46 PM PLANS EXAMINER Gender Identity Not on file Sexual [...] 2:10 PM CDT Height 175.3 cm (5' 9) 06/14/2024 2:58 PM PLANS EXAMINER Body Mass Index 29.98 06/14/2024 2:58 PM PLANS EXAMINER Plan of Treatment Not on file Goals Goal Patient Goal Type Associated Problems Recent Progress Patient-Stated? Author ZAK General Goal - Patient establishes care with [facility] ACO Care Management On track(2023 1:22 PM PLANS EXAMINER) No Clarissa Luna RN Note: Problem: Lack of [facility] communication Interventions: - Provide coordination between [facility] company and patient. - Ensure [facility] has appropriate referral and orders to establish care with patient. - Follow up with patient to ensure initial visit was completed by [facility] and that a [facility] plan has been started. ZAK General Goal - Patient schedules and keeps appointments with all recommended providers ACO Care Management Improving( 1:22 PM PLANS EXAMINER) No Clarissa Luna RN Note: Problem: Potential [...] medication regimen. Medical Devices Implanted Type Area Liability Analyst Device Identifier Shelf Expiration Date Model / Serial / Lot [employer] Lens Iol Cna0t0.195 [facility] Autonom Cna0t0.195 - [id number] - [id number] Implanted:Qty: 1 on 06/09/2023 by Higinio Connolly MD at [facility] Medicine [facility] Lens Right: Eye [employer] [id number] 10/27/2025 CNA0T0.19 5 / [id number] / [employer] Lens Iol Cna0t0.200 [facility] Autonom Cna0t0.200 - [id number] - [id number] Implanted:Qty: 1 on 05/19/2023 by Higinio Connolly MD at [facility] [place]: Eye [employer] [id number] 10/06/2025 CNA0T0.20 0 / [id number] / Procedures Procedure Name Priority Date/Time Associated Diagnosis Comments SCAN - RADIOLOGY/IMAGING 08/28/2024 9:30 AM CDT SCAN - RADIOLOGY/IMAGING 08/28/2024 9:03 AM CDT SCAN - RADIOLOGY/IMAGING 07/31/2024 4:25 PM CDT [...] AM CDT EGFR Routine 06/14/2024 3:48 PM PLANS EXAMINER GABRIELA (acute kidney injury) RENAL FUNCTION PANEL Routine 06/14/2024 3:48 PM PLANS EXAMINER GABRIELA (acute kidney injury) URINALYSIS AND REFLEX TO MICROSCOPIC Routine 06/08/2024 10:47 AM PLANS EXAMINER Anemia in stage 3b chronic kidney disease (HCC) Hypertension, essential Secondary hyperparathyroidism of renal origin Stage 3 chronic kidney disease, unspecified whether stage 3a or 3b CKD (HCC) Primary hypertension Vitamin D deficiency Type 2 diabetes mellitus with stage 3a chronic kidney disease, with long-term current use of insulin (HCC) Fatigue, unspecified type GABRIELA (acute kidney injury) EGFR Routine 06/08/2024 10:44 AM PLANS EXAMINER Anemia in stage 3b chronic kidney disease (HCC) Hypertension, essential Secondary hyperparathyroidism of renal origin Stage 3 chronic kidney disease, unspecified whether stage 3a or 3b CKD (HCC) Primary hypertension Vitamin D deficiency Type 2 diabetes mellitus with stage 3a chronic kidney disease, with long-term current use of insulin (HCC) Fatigue, unspecified type GABRIELA (acute kidney injury) DIFFERENTIAL AUTO Routine 06/08/2024 10:44 AM PLANS EXAMINER Anemia in stage 3b chronic kidney disease [...] RENAL FUNCTION PANEL Routine 06/08/2024 10:44 AM PLANS EXAMINER Anemia in stage 3b chronic kidney disease [...] D 25 HYDROXY Routine 06/08/2024 10:44 AM PLANS EXAMINER Anemia in stage 3b chronic kidney disease [...] WITH AUTO DIFFERENTIAL Routine 06/08/2024 10:44 AM PLANS EXAMINER Anemia in stage 3b chronic kidney disease (HCC) Hypertension, essential Secondary hyperparathyroidism of renal origin Stage 3 chronic kidney disease, unspecified whether stage 3a or 3b CKD (HCC) Primary hypertension Vitamin D deficiency Type 2 diabetes mellitus with stage 3a chronic kidney disease, with long-term current use of insulin (HCC) Fatigue, unspecified type GABRIELA (acute kidney injury) PTH Routine 06/08/2024 10:44 AM PLANS EXAMINER Anemia in stage 3b chronic kidney disease [...] RATIO, URINE, RANDOM Routine 06/08/2024 10:44 AM PLANS EXAMINER Anemia in stage 3b chronic kidney disease (HCC) Hypertension, essential Secondary hyperparathyroidism of renal origin Stage 3 chronic kidney disease, unspecified whether stage 3a or 3b CKD (HCC) Primary hypertension Vitamin D deficiency Type 2 diabetes mellitus with stage 3a chronic kidney disease, with long-term current use of insulin (HCC) Fatigue, unspecified type GABRIELA (acute kidney injury) LIPID PANEL Routine 03/08/2023 11:55 AM PLANS EXAMINER Hyperlipidemia, unspecified hyperlipidemia type ALBUMIN CREATININE RATIO, URINE Routine 01/01/2023 10:40 AM CDT Type 2 diabetes mellitus with stage 3a chronic kidney disease, with long-term current use of insulin (HCC) DIABETES EYE EXAM Routine 06/29/2018 from Last 3 Months or Most Recently Relevant to Health Maintenance Results * SCAN - RADIOLOGY/IMAGING (08/28/2024 9:30 AM CDT) Anatomical Region Laterality Modality Other us Provider Scanning Final Result * SCAN - RADIOLOGY/IMAGING (08/28/2024 9:03 AM CDT) Anatomical Region Laterality Modality Other us Provider Scanning Final Result * SCAN - RADIOLOGY/IMAGING (07/31/2024 4:25 PM [...] Large Ketones, ur, POC Negative Negative Specific [place], POC 1.015 1.003 - 1.030 Blood, ur, POC Hemolyzed, trace(A) Negative pH, ur, POC 6.0 5.0 - 8.0 Protein, ur, POC 30.(A) Negative Urobilinogen, urine, POC 0.2 0.2 - 1.0 mg/dL Nitrite, ur, POC Negative Negative Leukocytes, ur, POC Negative Negative Lot Number [id number] Urine 07/19/2024 2:16 PM CDT us [facility]au [facility] POINT OF CARE TEST ORDER ALAN Final Result * Urine culture Urine, clean voided (07/19/2024 12:00 PM CDT) Report Final Report: No growth Comment:Testing performed by : [facility], [address] [place]., [address] Urine, clean voided 07/19/2024 12:00 PM CDT 07/20/2024 2:19 AM CDT Narrative MERLINE Conrad 07/21/2024 7:38 AM CDT Testing performed by [facility] Microbiology Laboratory ([phone]) [facility] MICROBIOLOGY - [facility] AL ORDERABLES Final Result MERLINE [id number] [address] Department [place] [address] * (ABNORMAL) eGFR (07/18/2024 12:07 [...] LAB BLOOD ORDERABLES Final Resul t MERLINE [facility] Department [place] [address] * (ABNORMAL) Differential, auto (07/18/2024 12:07 PM CDT) Neutrophil abs 17.55(H) 1.50 - 6.50 K/cumm Comment:Testing performed by : [facility] Heme Lab, [address] [place] [phone] Lymphocyte abs 0.96 0.80 - 3.30 K/cumm MERLINE PERDOMO Comment:Testing performed by : [facility]e [facility], [address] [place] [phone] Monocyte abs 1.48(H) 0.20 - 0.80 K/cumm MERLINE PERDOMO Comment:Testing performed by : [facility], [address] [place] [phone] Eosinophil abs 0.06 0.00 - 0.50 K/cumm MERLINE PERDOMO Comment:Testing performed by : [facility]e [facility], [address] [place] [phone] Basophil abs 0.03 0.00 - 0.10 K/cumm CERNER [facility] Comment:Testing performed by : [facility] Heme [facility], [address] [place] [phone] Neutrophil pct 87.4 % CERONEAL PERDOMO Comment: Interpretive Data Percent cell count reference ranges are not reported, since discordance with absolute values may lead to misinterpretation of CBC data. Current Interpretive Data was last revised on 2017. Testing performed by: [facility]e [facility], [address] [place] [phone] Lymphocyte pct 4.8 % CERNER BJ Comment: Interpretive Data Percent cell count reference ranges are not reported, since discordance with absolute values may lead to misinterpretation of CBC data. Current Interpretive Data was last revised on 2017. Testing performed by: [facility]e [facility], [address] [place] [phone] Monocyte pct 7.4 % MERLINE PERDOMO Comment: Interpretive Data Percent cell count reference ranges are not reported, since discordance with absolute values may lead to misinterpretation of CBC data. Current Interpretive Data was last revised on 2017. Testing performed by: [facility]e [facility], [address] [place] [phone] Eosinophil pct 0.3 % MERLINE PERDOMO Comment: Interpretive Data Percent cell count reference ranges are not reported, since discordance with absolute values may lead to misinterpretation of CBC data. Current Interpretive Data was last revised on 2017. Testing performed by: [facility], [address] [place] [address] Basophil pct 0.2 % MERLINE PERDOMO Comment: Interpretive Data Percent cell count reference ranges are not reported, since discordance with absolute values may lead to misinterpretation of CBC data. Current Interpretive Data was last revised on 2017. Testing performed by: [facility]e [facility], [address] [place] [address] Blood 07/18/2024 12:0 7 PM CDT 07/18/2024 12:22 PM CDT us Gautam Cope MD LAB BLOOD ORDERABLES Final Resul t [facility] Department of Laboratories [place], [place] [id number] * (ABNORMAL) CBC with auto differential (07/18/2024 12:07 PM CDT) WBC 20.09(H) 3.80 - 9.90 K/cumm Comment:Testing performed by : [facility] Heme [facility], [address] [place] [address] Hgb 12.1(L) 13.0 - 17.5 g/dL MERLINE PERDOMO Comment:Testing performed by : [facility] Heme [facility], [address] [place] [address] Hct 38.2(L) 38.9 - 50.3 % MERLINE PERDOMO Comment:Testing performed by : [facility]e [facility], [address] [place] [address] Plt 451(H) 150 - 400 K/cumm MERLINE PERDOMO Comment:Testing performed by : [facility]e [facility], [address] [place] [address] MPV 7.7 6.8 - 10.4 fL MERLINE PERDOMO Comment:Testing performed by : [facility] Heme Lab, [address] [place] [address] RBC 4.46 4.30 - 5.80 M/cumm MERLINE PERDOMO Comment:Testing performed by : [facility]e [facility], [address] [place] [address] MCV 85.5 81.3 - 96.4 fL MERLINE PERDOMO Comment:Testing performed by : [facility]e [facility], [address] [place] [address] MCH 27.1 27.1 - 33.3 pg MERLINE PERDOMO Comment:Testing performed by : [facility], [address] [place] [address] MCHC 31.7(L) 32.3 - 35.7 g/dL MERLINE PERDOMO Comment:Testing performed by : [facility]e [facility], [address] [place] [address] RDW CV 14.9 11.1 - 14.9 % MERLINE PERDOMO Comment:Testing performed by : [facility], [address] [place] [address] NRBC abs 0.00 0.00 - 0.01 K/cumm MERLINE PERDOMO Comment:Testing performed by : [facility], [address] [place] [address] Blood 07/18/2024 12:0 7 PM CDT 07/18/2024 12:22 PM CDT us Gautam Cope MD LAB BLOOD ORDERABLES Final Resul t MERLINE PERDOMO [facility] [place] [address] [phone] * PSA diagnostic (07/18/2024 12:07 PM CDT) [facility] PSA-Total <0.02 <=6.20 ng/mL Comment: [...] ORDERABLES Final Resul t Performing Organization Address City/[facility]/ZIP Co de Phone Number [facility] [place] [address] * Lactate dehydrogenase (LD) (07/18/2024 12:07 PM CDT) [facility] Lactate dehydrogenase (LDH) 216 100 - 250 Units/L Blood 07/18/2024 12:0 7 PM CDT 07/18/2024 12:25 PM CDT us Gautam Cope MD LAB BLOOD ORDERABLES Final Resul t Performing Organization Address City/State/[facility] Co de Phone Number [facility] [place] [address] * (ABNORMAL) Hemoglobin A1c (07/18/2024 12:07 PM CDT) [facility] Hgb A1C 8.0(H) 4.0 - [...] Final Resul t [facility] Department [place] [address] * (ABNORMAL) Comprehensive metabolic panel (07/18/2024 12:07 PM CDT) Sodium 142 135 - 145 mmol/L Potassium, pl 4.6 3.3 - 4.9 mmol/L [facility] Chloride 106 97 - 110 mmol/L [facility] CO2 24 22 - 32 mmol/L [facility] Anion gap 12 2 - 15 mmol/L [facility] BUN 52(H) 6 - 25 mg/dL [facility] Creatinine 2.66(H) 0.80 - 1.30 mg/dL [facility] Glucose 164 70 - 199 mg/dL [facility] [...] 2022. Calcium 9.0 8.5 - 10.3 mg/dL [facility] Bilirubin, total 0.5 0.1 - 1.2 mg/dL [facility] Protein, pl 6.7 6.5 - 8.5 g/dL [facility] Albumin 4.0 3.5 - 5.0 g/dL [facility] Alk phos 126 40 - 130 Units/L [facility] ALT 10 7 - 55 Units/L [facility] AST 13 10 - 50 Units/L [facility] Blood 07/18/2024 12:0 7 PM CDT 07/18/2024 12:25 PM CDT us Gautam Cope MD LAB BLOOD ORDERABLES Final Resul t Performing Organization Address [facility]/ZIP Co de Phone Number [facility] Department [place] [address] * SCAN - RADIOLOGY/IMAGING (07/01/2024 9:44 AM CDT) Anatomical Region Laterality Modality Other us Provider Scanning Final Result * (ABNORMAL) eGFR (06/14/2024 3:48 PM PLANS EXAMINER) eGFR 26(L) >=60 mL/min/1. 73 m2 Comment: [...] last reviewed 2021. Blood 06/14/2024 3:48 PM PLANS EXAMINER 06/14/2024 4:07 PM PLANS EXAMINER us Lin Guerrero MD LAB BLOOD ORDERABLES Final Resul t Performing Organization Address City/[facility]/ZIP Co de Phone Number [facility]ERNER [facility] Department [place] [address] * (ABNORMAL) Renal function panel (06/14/2024 3:48 PM PLANS EXAMINER) Sodium 143 135 - 145 mmol/L Potassium, pl 5.0(H) 3.3 - 4.9 mmol/L [facility] Chloride 105 97 - 110 mmol/L [facility] CO2 28 22 - 32 mmol/L [facility] Anion gap 10 2 - 15 mmol/L [facility] BUN 48(H) 6 - 25 mg/dL [facility] Creatinine 2.42(H) 0.80 - 1.30 mg/dL [facility] [...] 2022. Calcium 8.7 8.5 - 10.3 mg/dL [facility] Phosphorus, pl 3.1 2.3 - 4.5 mg/dL [facility] Albumin 3.9 3.5 - 5.0 g/dL [facility] Blood 06/14/2024 3:48 PM PLANS EXAMINER 06/14/2024 4:03 PM PLANS EXAMINER us Lin Guerrero MD LAB BLOOD ORDERABLES Final Resul t [facility] Department [place] [address] * Urinalysis reflex to microscopic (06/08/2024 10:47 AM PLANS EXAMINER) Color, ur Straw Yellow Clarity, ur Clear Clear [facility] Specific gravity, ur 1.012 1.003 - 1.030 [facility] pH, urine 6.0 [facility] Comment: Interpretive Data U rine pH is affected by diet, medications, systemic acid-base disturbances, and renal tubular function. pH may affect urinary stone formation. For example, urine pH below 6.0 may help reduce the tendency for calcium phosphate stones and pH greater than 6.0 may reduce the tendency for uric acid stone formation. Source: [facility] Current Interpretive Data was last revised on 2017 Protein, ur ql Trace Negative [facility] Glucose, ur ql Negative Negative [facility] Ketones, ur Negative Negative [facility] Bilirubin, ur Negative Negative [facility] Blood, ur Negative Negative [facility] Urobilinogen, ur <2.0 <2.0 mg/dL [facility] Nitrite, ur Negative Negative [facility] Leukocyte esterase, ur Negative Negative [facility] UA reflex comment Reflex conditions for microscopic UA not met. [facility] Urine 06/08/2024 10:4 7 AM PLANS EXAMINER 06/08/2024 11:41 AM PLANS EXAMINER us Lin Guerrero MD LAB URINE ORDERABLES Final Resul t [facility] Department [place] [address] * (ABNORMAL) eGFR (06/08/2024 10:44 AM PLANS EXAMINER) eGFR 22(L) >=60 mL/min/1. 73 m2 Comment: [...] reviewed 2021. Blood 06/08/2024 10:4 4 AM PLANS EXAMINER 06/08/2024 11:23 AM PLANS EXAMINER us Lin Guerrero MD LAB BLOOD ORDERABLES Final Resul t [facility] Department [place] [address] * (ABNORMAL) Differential, auto (06/08/2024 10:44 AM PLANS EXAMINER) Neutrophil abs 7.8(H) 1.5 - 6.5 K/cumm Imm gran abs 0.1 0.0 - 0.1 K/cumm [facility] Lymphocyte abs 1.9 0.8 - 3.3 K/cumm [facility] Monocyte abs 1.0(H) 0.2 - 0.8 K/cumm [facility] Eosinophil abs 0.1 0.0 - 0.5 K/cumm [facility] Basophil abs 0.0 0.0 - 0.1 K/cumm [facility] Neutrophil pct 71.1 % [facility] Comment: Interpretive Data Percent cell count reference ranges are not reported, since discordance with absolute values may lead to misinterpretation of CBC data. Current Interpretive Data was last revised on 2017. Imm gran pct 0.8 % [facility] Comment: Interpretive Data Percent cell count reference ranges are not reported, since discordance with absolute values may lead to misinterpretation of CBC data. Current Interpretive Data was last revised on 2017. Lymphocyte pct 17.1 % [facility] Comment: Interpretive Data Percent cell count reference ranges are not reported, since discordance with absolute values may lead to misinterpretation of CBC data. Current Interpretive Data was last revised on 2017. Monocyte pct 9.3 % [facility] Comment: Interpretive Data Percent cell count reference ranges are not reported, since discordance with absolute values may lead to misinterpretation of CBC data. Current Interpretive Data was last revised on 2017. Eosinophil pct 1.3 % [facility] Comment: Interpretive Data Percent cell count reference ranges are not reported, since discordance with absolute values may lead to misinterpretation of CBC data. Current Interpretive Data was last revised on 2017. Basophil pct 0.4 % [facility] Comment: Interpretive Data Percent cell count reference ranges are not reported, since discordance with absolute values may lead to misinterpretation of CBC data. Current Interpretive Data was last revised on 2017. Blood 06/08/2024 10:4 4 AM PLANS EXAMINER 06/08/2024 11:23 AM PLANS EXAMINER us Lin Guerrero MD LAB BLOOD ORDERABLES Final Resul t [facility] Department [place] [address] * (ABNORMAL) CBC with auto differential (06/08/2024 10:44 AM PLANS EXAMINER) WBC 11.0(H) 3.8 - 9.9 K/cumm Hgb 12.0(L) 13.0 - 17.5 g/dL [facility] Hct 36.9(L) 38.9 - 50.3 % [facility] Plt 357 150 - 400 K/cumm [facility] MPV 9.8 9.1 - 12.3 fL [facility] RBC 4.27(L) 4.30 - 5.80 M/cumm [facility] MCV 86.4 81.3 - 96.4 fL [facility] MCH 28.1 27.1 - 33.3 pg [facility] MCHC 32.5 32.3 - 35.7 g/dL [facility] RDW CV 14.1 11.1 - 14.9 % [facility] RDW SD 44.2 35.7 - 48.1 fL [facility] NRBC abs 0.00 0.00 - 0.01 K/cumm [facility] Blood 06/08/2024 10:4 4 AM PLANS EXAMINER 06/08/2024 11:23 AM PLANS EXAMINER Lin Guerrero MD LAB BLOOD ORDERABLES Final Resul t Performing Organization Address [facility] Phone Number [facility] [place] [address] * (ABNORMAL) Protein / creatinine ratio, urine, random (06/08/2024 10:44 AM PLANS EXAMINER) Pathologist [facility] Protein, ur, quant 21.3 mg/dL Comment: Interpretive Data No reference range established. Current interpretive data was last revised 2018. Creatinine Ur 52.2 mg/dL [facility] Comment: Interpretive Data No reference range established. Current interpretive data was last revised 2018. Protein/creatinin e ratio 408.0(H) 0.0 - 180.0 mg/g CR [facility] Urine 06/08/2024 10:4 4 AM PLANS EXAMINER 06/08/2024 11:23 AM PLANS EXAMINER us Lin Guerrero MD LAB URINE ORDERABLES Final Resul t Performing Organization Address [facility] de Phone Number [facility] [place] [address] * Vitamin D 25 hydroxy (06/08/2024 10:44 AM PLANS EXAMINER) Pathologist [facility] Vitamin D 25-OH 42 30 - 80 ng/mL Blood 06/08/2024 10:4 4 AM PLANS EXAMINER 06/08/2024 11:23 AM PLANS EXAMINER Lin Guerrero MD LAB BLOOD ORDERABLES Final Resul t Performing Organization Address [facility] Phone Number [facility] Department [place] [address] * (ABNORMAL) PTH (06/08/2024 10:44 AM PLANS EXAMINER) PTH 78(H) 15 - 65 pg/mL Blood 06/08/2024 10:4 4 AM PLANS EXAMINER 06/08/2024 11:23 AM PLANS EXAMINER Lin Guerrero MD LAB BLOOD ORDERABLES Final Resul t [facility] Department [place] [address] * (ABNORMAL) Renal function panel (06/08/2024 10:44 AM PLANS EXAMINER) Sodium 142 135 - 145 mmol/L Potassium, pl 4.8 3.3 - 4.9 mmol/L [facility] Chloride 107 97 - 110 mmol/L [facility] CO2 27 22 - 32 mmol/L [facility] Anion gap 8 2 - 15 mmol/L [facility] BUN 60(H) 6 - 25 mg/dL [facility] Creatinine 2.72(H) 0.80 - 1.30 mg/dL [facility] Glucose 94 70 - 199 mg/dL [facility] [...] 2022. Calcium 9.0 8.5 - 10.3 mg/dL [facility] Phosphorus, pl 3.5 2.3 - 4.5 mg/dL [facility] Albumin 3.8 3.5 - 5.0 g/dL [facility] Blood 06/08/2024 10:4 4 AM PLANS EXAMINER 06/08/2024 11:23 AM PLANS EXAMINER Lin Guerrero MD LAB BLOOD ORDERABLES Final Resul t [facility] [place] [address] * (ABNORMAL) Lipid panel (03/08/2023 11:55 AM PLANS EXAMINER) Cholesterol 193 30 - 199 mg/dL [facility] Comment: Interpretive Data Ages [...] revised on 2017. Triglycerides 250(H) <=149 mg/dL [facility] Comment: Interpretive Data Ages [...] revised on 2017. HDL 36(L) >=40 mg/dL [facility] Comment: Interpretive Data [...] MEDICAL CENTER Blood 03/08/2023 11:5 5 AM PLANS EXAMINER 03/08/2023 3:48 PM PLANS EXAMINER Kraig Ching MD LAB BLOOD ORDERABLES Final Re sult [facility] Department [place] [address] * (ABNORMAL) Albumin Creatinine Ratio, Urine (01/01/2023 10:40 AM CDT) Albumin Ur 227.3 mg/L [facility] Comment: Interpretive Data No reference range established. Current interpretive data was last revised 2018. Creatinine Ur 66.5 mg/dL [facility] Comment: Interpretive Data No reference range established. Current interpretive data was last revised 2018. Albumin Creatinine Ratio, Ur 342(H) 1 - 29 mg/g [facility] Urine 01/01/2023 10:4 0 AM CDT 01/01/2023 10:45 AM CDT us Kraig Ching MD LAB URINE ORDERABLES Final Re sult [facility] [place] [address] * DIABETES EYE EXAM (06/29/2018) Diabetic Eye Exam Normal us Historical Provider HEALTH MAINTENANCE Final Result from Last 3 Months or Most Recently Relevant to Health Maintenance Insurance [facility] T MEDICARE T MEDICARE Advance Directives For more information, please contact: [phone] * Full Code (Latest Code Status on File) Date Activated Date Inactivated Comments 12/16/2017 2:44 PM 12/16/2017 7:18 PM Care Teams Category Manager Relationship Specialty Start Date End Date Kraig Ching MD [address] [facility] [address] [place] [address] PCP - General 07/10/16 Gautam Cope MD [address] [facility] [address] [place] [address] Medical Oncologist/Editor At Large Medical Oncology 08/18/18 Tramaine Roe MD [address] [facility] [address] [place] [address] Referring Physician Urology 08/18/18 Sukhwinder Uribe MD [address] [facility] [address] [place] [address] Consulting Physician Urology 08/18/18 Shay Guillermo MD [address] [facility] [address] [place] [address] Referring Physician Urology 08/18/18 Marsha Landis, RN Registered Nurse 11/17/18
--- OUTSIDE RECORDS SUMMARY | 2024-08-29 14:05 | XMS_ITS | Encounter Summary ---
Author Organization [facility] Address [address] [place] [address] Phone Care Team Providers Care Job Site Supervisor Name Role Phone Kraig Ching MD Primary Care Provider Gautam Cope MD Unavailable Tramaine Roe MD Unavailable [phone] Sukhwinder Uribe MD Unavailable [phone] Shay Guillermo MD Unavailable Marsha Landis RN Unavailable Unavailab Clarissa Harry RN Unavailable [phone] Encounter Details Date Type Department Care [...] on file Legal Sex Male 4:46 PM AGENCY RECRUITER Gender Identity Not on file Sexual Orientation Not on file documented as of this encounter Functional Status documented as of this encounter Plan of Treatment Scheduled Orders Name Type Priority Associated Diagnoses Orde r Schedule CARDIOLOGY DOCUMENT SCAN Cardiac Services Ordered: 03/21/2023 documented as of this encounter Visit Diagnoses Not on filedocumented in this encounter Care Teams Job Site Supervisor Relationship Specialty Start Date End Date Kraig Ching MD [address] [facility] [address] [place] [address] PCP - General 07/10/16 Gautam Cope MD [address] [facility] [address] [place] [address] Medical Oncologist/Card Hanger Medical Oncology 08/18/18 Tramaine Roe MD [address] [facility] [address] [place] [address] Referring Physician Urology 08/18/18 Sukhwinder Uribe MD [address] [facility] [address] [place] [address] Consulting Physician Urology 08/18/18 Shay Guillermo MD [address] [facility] [address] [place] [address] Referring Physician Urology 08/18/18 Marsha Landis RN Registered Nurse 11/17/18 Clarissa Luna RN [address] [place] [address] [address] [place] [address] Business Systems Technician 04/04/24 04/26/24 documented as of this encounter
--- OUTSIDE RECORDS SUMMARY | 2024-08-29 14:06 | XMS_ITS ---
Author Organization [facility] Address [address] [place] [address] Care Team Providers Care Aircraft Inspection Record Clerk Name Role Phone Kraig Ching MD Primary Care Provider [phone] Gautam Cope MD Unavailable Tramaine Roe MD Unavailable [phone] Sukhwinder Uribe MD Unavailable [phone] Shay Guillermo MD Unavailable [phone] Marsha Landis RN Unavailable Unavailab Active Problems Problem Noted Date Diagnosed Date Statin myopathy 06/08/2024 Essential hypertension 05/30/2024 Type 2 diabetes mellitus wit h stage 3b chronic kidney disease, with long-term current use of insulin 05/30/2024 Assessment & Plan (06/08/2024 4:46 AM WOODWORKING MACHINE FEEDER): Continue current regimen.Limit nephrotoxins.Reviewed creatinine. Avoid NSAIDS. [...] 03/08/2023 Assessment & Plan (06/08/2024 4:46 AM WOODWORKING MACHINE FEEDER): Hypertension is controlled. Continue current regimen. Assessment & Plan (10/05/2023 12:54 PM CDT): Hypertension is controlled. Decrease carvedilol to 12.5 mg. Assessment & Plan (03/08/2023 7:11 AM WOODWORKING MACHINE FEEDER): Hypertension is controlled. Continue current regimen. 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 Avoid NSAIDS. Assessment & Plan (10/05/2023 5:50 AM CDT): Continue current regimen.Limit nephrotoxins.Reviewed creatinine. Avoid NSAIDS. Assessment & Plan (03/08/2023 7:12 AM WOODWORKING MACHINE FEEDER): Continue current regimen.Limit nephrotoxins.Reviewed creatinine. Avoid NSAIDS. CKD (chronic kidney disease) 03/08/2022 Assessment & Plan (06/08/2024 4:45 AM WOODWORKING MACHINE FEEDER): Limit nephrotoxins. Monitor creatinine. Avoid NSAIDS.Follow with Nephrology. Anemia in stage 3b chronic kidney disease 2021 Gastroesophageal reflux disease 04/08/2021 Assessment & Plan (03/08/2023 11:17 AM WOODWORKING MACHINE FEEDER): Reviewed dietary modifications. Continue PPI. Assessment & Plan (08/18/2022 6:36 AM CDT): Reviewed dietary modifications. Continue PPI. Assessment & Plan (02/12/2022 6:03 AM CDT): Reviewed dietary modifications. Continue PPI. Assessment & Plan (04/08/2021 5:55 AM WOODWORKING MACHINE FEEDER): Reviewed dietary modifications. Continue PPI. 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 Continue home PT exercises. Advised using a walker. Assessment & Plan (08/18/2022 11:47 AM CDT): Continue oxycodone. Continue home PT exercises. Advised using a walker. Assessment & Plan (02/12/2022 11:41 AM CDT): Continue oxycodone. Continue home PT exercises. A prescription for a walker. Assessment & Plan (04/08/2021 5:55 AM WOODWORKING MACHINE FEEDER): Continue oxycodone. Continue home PT exercises. Continue walker. Assessment & Plan (12/26/2020 10:48 AM CDT): Continue oxycodone. Script for walker. Assessment & Plan (09/26/2020 11:29 AM CDT): Continue ROM exercises and follow with Pain Management. Refill oxycodone as needed. Prostate cancer 09/06/2018 Assessment & Plan (06/08/2024 4:46 AM WOODWORKING MACHINE FEEDER): Follow with Oncology. Continue Zytiga. Assessment & [...] 01/25/2018 Assessment & Plan (03/07/2018 6:54 AM WOODWORKING MACHINE FEEDER): Hypertension is controlled. Continue current regimen. CHF [...] creatinine. Assessment & Plan (04/08/2021 5:54 AM WOODWORKING MACHINE FEEDER): Hypertension is controlled. Continue current regimen.Limit nephrotoxins. [...] NSAIDS. Assessment & Plan (03/07/2018 6:55 AM WOODWORKING MACHINE FEEDER): Hypertension is controlled. Continue current regimen. Limit nephrotoxins. Monitor creatinine. Avoid NSAIDS. Assessment & Plan (11/25/2017 7:09 AM CDT): Limit nephrotoxins. Monitor creatinine. Avoid NSAIDS. Duodenal ulcer 11/25/2017 Assessment & Plan (11/25/2017 10:16 AM CDT): Reviewed GI note . Continue pantoprazole. Avoid NSAIDS. Refer for EGD. PAF (paroxysmal atrial fibrillation) 10/22/2017 Assessment & Plan (03/07/2018 6:54 AM WOODWORKING MACHINE FEEDER): Continue rate control. Continue anticoagualtion. Anticipate starting [...] NSAIDS. Assessment & Plan (03/07/2018 6:55 AM WOODWORKING MACHINE FEEDER): Limit nephrotoxins. Monitor creatinine. Avoid NSAIDS. Assessment [...] diet. Assessment & Plan (04/08/2021 10:17 AM WOODWORKING MACHINE FEEDER): Reviewed HgBA1C elevated at 10.6 on 04/01/21. [...] therapy. Assessment & Plan (03/07/2018 6:57 AM WOODWORKING MACHINE FEEDER): Continue pravastatin. He had myalgias on other [...] diet. Assessment & Plan (03/02/2017 6:53 AM WOODWORKING MACHINE FEEDER): Hypertension is controlled. Continue current regimen. Reviewed low sodium diet. Assessment & Plan (01/15/2017 6:44 AM CDT): Reviewed proper diet. Continue statin therapy. Hyperlipidemia 01/12/2012 Assessment & Plan (06/08/2024 4:46 AM WOODWORKING MACHINE FEEDER): Continue pravastatin. Order lipid panel at next [...] 05/28/2023 Assessment & Plan (03/08/2023 11:40 AM WOODWORKING MACHINE FEEDER): Agree with cataract surgery. He has 1st [...] 08/30/2017 Assessment & Plan (03/02/2017 10:48 AM WOODWORKING MACHINE FEEDER): Mood is improved. Monitor off medication. Impotence [...] 200. Assessment & Plan (03/07/2018 6:56 AM WOODWORKING MACHINE FEEDER): Continue current regimen. Advised annual eye exam.Limit nephrotoxins. Monitor creatinine. Avoid NSAIDS. Assessment & Plan (11/25/2017 10:16 AM CDT): Continue current regimen and add Januvia.Advised annual eye exam. Limit nephrotoxins. Monitor creatinine. Avoid NSAIDS. Assessment & Plan (01/15/2017 6:44 AM CDT): Continue current regimen. Advised annual eye exam. Reviewed proper diet. Continue statin therapy.
--- OUTSIDE RECORDS SUMMARY | 2024-08-29 14:06 | XMS_ITS | Clinical Summary ---
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 Avoid NSAIDS. [...] 03/08/2023 Assessment & Plan (06/08/2024 4:46 AM INVOICE CONTROL CLERK): Hypertension is controlled. Continue current regimen. Assessment & Plan (10/05/2023 12:54 PM CDT): Hypertension is controlled. Decrease carvedilol to 12.5 mg. Assessment & Plan (03/08/2023 7:11 AM INVOICE CONTROL CLERK): Hypertension is controlled. Continue current regimen. 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 Avoid NSAIDS. Assessment & Plan (10/05/2023 5:50 AM CDT): Continue current regimen.Limit nephrotoxins.Reviewed creatinine. Avoid NSAIDS. Assessment & Plan (03/08/2023 7:12 AM INVOICE CONTROL CLERK): Continue current regimen.Limit nephrotoxins.Reviewed creatinine. Avoid NSAIDS. CKD (chronic kidney disease) 03/08/2022 Assessment & Plan (06/08/2024 4:45 AM INVOICE CONTROL CLERK): Limit nephrotoxins. Monitor creatinine. Avoid NSAIDS.Follow with Nephrology. Anemia in stage 3b chronic kidney disease 2021 Gastroesophageal reflux disease 04/08/2021 Assessment & Plan (03/08/2023 11:17 AM INVOICE CONTROL CLERK): Reviewed dietary modifications. Continue PPI. Assessment & Plan (08/18/2022 6:36 AM CDT): Reviewed dietary modifications. Continue PPI. Assessment & Plan (02/12/2022 6:03 AM CDT): Reviewed dietary modifications. Continue PPI. Assessment & Plan (04/08/2021 5:55 AM INVOICE CONTROL CLERK): Reviewed dietary modifications. Continue PPI. 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 Continue home PT exercises. Advised using a walker. Assessment & Plan (08/18/2022 11:47 AM CDT): Continue oxycodone. Continue home PT exercises. Advised using a walker. Assessment & Plan (02/12/2022 11:41 AM CDT): Continue oxycodone. Continue home PT exercises. A prescription for a walker. Assessment & Plan (04/08/2021 5:55 AM INVOICE CONTROL CLERK): Continue oxycodone. Continue home PT exercises. Continue walker. Assessment & Plan (12/26/2020 10:48 AM CDT): Continue oxycodone. Script for walker. Assessment & Plan (09/26/2020 11:29 AM CDT): Continue ROM exercises and follow with Pain Management. Refill oxycodone as needed. Prostate cancer 09/06/2018 Assessment & Plan (06/08/2024 4:46 AM INVOICE CONTROL CLERK): Follow with Oncology. Continue Zytiga. Assessment & [...] 01/25/2018 Assessment & Plan (03/07/2018 6:54 AM INVOICE CONTROL CLERK): Hypertension is controlled. Continue current regimen. CHF [...] creatinine. Assessment & Plan (04/08/2021 5:54 AM INVOICE CONTROL CLERK): Hypertension is controlled. Continue current regimen.Limit nephrotoxins. [...] NSAIDS. Assessment & Plan (03/07/2018 6:55 AM INVOICE CONTROL CLERK): Hypertension is controlled. Continue current regimen. Limit nephrotoxins. Monitor creatinine. Avoid NSAIDS. Assessment & Plan (11/25/2017 7:09 AM CDT): Limit nephrotoxins. Monitor creatinine. Avoid NSAIDS. Duodenal ulcer 11/25/2017 Assessment & Plan (11/25/2017 10:16 AM CDT): Reviewed GI note . Continue pantoprazole. Avoid NSAIDS. Refer for EGD. PAF (paroxysmal atrial fibrillation) 10/22/2017 Assessment & Plan (03/07/2018 6:54 AM INVOICE CONTROL CLERK): Continue rate control. Continue anticoagualtion. Anticipate starting [...] NSAIDS. Assessment & Plan (03/07/2018 6:55 AM INVOICE CONTROL CLERK): Limit nephrotoxins. Monitor creatinine. Avoid NSAIDS. Assessment [...] diet. Assessment & Plan (04/08/2021 10:17 AM INVOICE CONTROL CLERK): Reviewed HgBA1C elevated at 10.6 on 04/01/21. [...] therapy. Assessment & Plan (03/07/2018 6:57 AM INVOICE CONTROL CLERK): Continue pravastatin. He had myalgias on other [...] diet. Assessment & Plan (03/02/2017 6:53 AM INVOICE CONTROL CLERK): Hypertension is controlled. Continue current regimen. Reviewed low sodium diet. Assessment & Plan (01/15/2017 6:44 AM CDT): Reviewed proper diet. Continue statin therapy. Hyperlipidemia 01/12/2012 Assessment & Plan (06/08/2024 4:46 AM INVOICE CONTROL CLERK): Continue pravastatin. Order lipid panel at next [...] 05/28/2023 Assessment & Plan (03/08/2023 11:40 AM INVOICE CONTROL CLERK): Agree with cataract surgery. He has 1st [...] 08/30/2017 Assessment & Plan (03/02/2017 10:48 AM INVOICE CONTROL CLERK): Mood is improved. Monitor off medication. Impotence [...] 200. Assessment & Plan (03/07/2018 6:56 AM INVOICE CONTROL CLERK): Continue current regimen. Advised annual eye exam.Limit [...] Department Care Team Description 08/28/2024 Orders Only [facility] [employer] [address] [place] [id number] Scanning, Provider 08/25/2024 Telephone [facility] [address] [phone] Kraig Ching MD ZAK Questions 08/24/2024 Telephone [facility] [address] [place] [phone] Kraig Ching MD Medical Question/Miscellaneous 08/21/[address] [phone] Kraig Ching MD Additional Services Or Orders 08/21/2024 Telephone [facility] [address] [place] [phone] Kraig Ching MD Medical Question/Miscellaneous 07/31/2024 Orders Only [facility] Health Information Management [address] [place] [address] Scanning, Provider 07/24/2024 Telephone [facility] On[facility] Floor [address] [place] [address] Gautam Cope MD 07/22/2024 Orders Only [facility] Health Information Management [address] [place] [address] Scanning, Provider 07/21/2024 Results Follow-Up [facility] at [address] [phone] Fadi Corrales NP Urine culture Urine, clean voided 07/19/2024 7:45 PM CDT - 07/19/2024 11:59 PM CDT Hospital Encounter [address] [address] Urinary frequency Discharge Disposition: Discharge to home or self care 07/19/2024 2:00 PM CDT Office Visit [facility] at [address] [phone] Clau Childers PA Urinary frequency (Primary Dx); Leukocytosis, unspecified type 07/18/2024 1:45 PM CDT Infusion [facility] [address] [facility] Floor [address] [place] [address] Prostate cancer (HCC) (Primary Dx) 07/18/2024 1:00 PM CDT Office Visit [facility] Oncology [address] [facility] Floor [address] [place] [address] Gautam Cope MD Prostate cancer (HCC) (Primary Dx) 07/18/2024 12:00 PM CDT Lab [facility] - Lab Collection [address] [facility] [address] [place] [address] Prostate cancer (HCC) 07/18/2024 Patient Self-Triage [facility] [address] [place] [address] Mychart, Generic Provider 07/01/2024 Orders Only [facility] Health Information Management [address] [place] [address] Scanning, Provider 06/14/2024 6:15 PM INVOICE CONTROL CLERK Lab [facility] ([facility]) [address] [place] [phone] GABRIELA (acute kidney injury) 06/14/2024 3:00 PM INVOICE CONTROL CLERK Office Visit [facility] Nephrology [address] [place] [address] 5th [place] [address] [place] [address] Lin Guerrero MD Chronic kidney disease, stage 3b (HCC) (Primary Dx); GABRIELA (acute kidney injury); Hypertension, essential; Secondary hyperparathyroidism of renal origin 06/08/2024 12:00 PM INVOICE CONTROL CLERK Lab [facility] [address] [place] [phone] Anemia in stage 3b chronic kidney disease (HCC); Hypertension, essential; Secondary hyperparathyroidism of renal origin; Stage 3 chronic kidney disease, unspecified whether stage 3a or 3b CKD (HCC); Primary hypertension; Vitamin D deficiency; Type 2 diabetes mellitus with stage 3a chronic kidney disease, with long-term current use of insulin (HCC); Fatigue, unspecified type; GABRIELA (acute kidney injury) 06/08/2024 9:45 AM INVOICE CONTROL CLERK Office Visit [facility] [address] [place] [address] Kraig Ching MD Hypertension, essential (Primary Dx); [...] 01/17/2019 Influenza, Unspecified 01/17/2019(Deferred: Daisy ent Refused) [employer] ([employer]) SARS-CoV-2 Vaccination 06/14/2020, 06/14/2020 Pfizer SARS-CoV-2 [...] pur e alcohol) Occasional glass of wine. [facility] Utilities Answer Date Recorded In the past 12 months has e [employer], gas, oil, or water company threatened to [...] often do you attend chur ch or lutheran services? Never 04/04/2024 Do you belong to any clubs o r organizations such as gnosticism groups, unions, fraternal or athletic groups, or [...] any time in the past 12 m [facility], were you homeless or living in a skilled nursing (including now)? No 04/04/2024 Personal Safety Answer Date Recorded Have you ever been in or are you currently in a harmful physical or emotional relationship or is someone making you feel afraid or unsafe? Denies 06/09/2023 Sex and Gender Information Value Date Recorded Sex Assigned at Not on file Legal Sex Male 4:46 PM INVOICE CONTROL CLERK Gender Identity Not on file [...] 175.3 cm (5' 9) 06/14/2024 2:58 PM INVOICE CONTROL CLERK Body Mass Index 29.98 06/14/2024 2:58 PM INVOICE CONTROL CLERK Plan of Treatment Health Maintenance Due Date [...] Goal - Patient establishes care with [facility] ACO Care Management On track(2023 1:22 PM INVOICE CONTROL CLERK) No Clarissa Luna RN Note: Problem: Lack of [facility] communication Interventions: - Provide coordination between [facility] company and patient. - Ensure [facility] has appropriate referral and orders to establish care with patient. - Follow up with patient to ensure initial visit was completed by [facility] and that a [facility] plan has been started. ZAK General Goal - Patient schedules and keeps appointments with all recommended providers ACO Care Management Improving( 1:22 PM INVOICE CONTROL CLERK) No Clarissa Luna RN Note: Problem: Potential [...] medication regimen. Medical Devices Implanted Type Area [employer] Solutions Architect Device Identifier Shelf Expiration Date Model / Serial / Lot [employer] Lens Iol Cna0t0.195 [facility] Autonom Cna0t0.195 - [id number] - [id number] Implanted:Qty: 1 on 06/09/2023 by Higinio Connolly MD at [facility] Lens Right: Eye [employer] [id number] 10/27/2025 CNA0T0.19 5 / [id number] / [employer] Lens Iol Cna0t0.200 [facility] Autonom Cna0t0.200 - [id number] - [id number] Implanted:Qty: 1 on 05/19/2023 by Higinio Connolly MD at [facility] Left: Eye [employer] [id number] 10/06/2025 CNA0T0.20 0 / [id number] / Procedures Procedure Name Priority Date/Time [...] AM CDT EGFR Routine 06/14/2024 3:48 PM INVOICE CONTROL CLERK GABRIELA (acute kidney injury) RENAL FUNCTION PANEL Routine 06/14/2024 3:48 PM INVOICE CONTROL CLERK GABRIELA (acute kidney injury) URINALYSIS AND REFLEX TO MICROSCOPIC Routine 06/08/2024 10:47 AM INVOICE CONTROL CLERK Anemia in stage 3b chronic kidney disease (HCC) Hypertension, essential Secondary hyperparathyroidism of renal origin Stage 3 chronic kidney disease, unspecified whether stage 3a or 3b CKD (HCC) Primary hypertension Vitamin D deficiency Type 2 diabetes mellitus with stage 3a chronic kidney disease, with long-term current use of insulin (HCC) Fatigue, unspecified type GABRIELA (acute kidney injury) EGFR Routine 06/08/2024 10:44 AM INVOICE CONTROL CLERK Anemia in stage 3b chronic kidney disease (HCC) Hypertension, essential Secondary hyperparathyroidism of renal origin Stage 3 chronic kidney disease, unspecified whether stage 3a or 3b CKD (HCC) Primary hypertension Vitamin D deficiency Type 2 diabetes mellitus with stage 3a chronic kidney disease, with long-term current use of insulin (HCC) Fatigue, unspecified type GABRIELA (acute kidney injury) DIFFERENTIAL AUTO Routine 06/08/2024 10:44 AM INVOICE CONTROL CLERK Anemia in stage 3b chronic kidney disease [...] RENAL FUNCTION PANEL Routine 06/08/2024 10:44 AM INVOICE CONTROL CLERK Anemia in stage 3b chronic kidney disease [...] D 25 HYDROXY Routine 06/08/2024 10:44 AM INVOICE CONTROL CLERK Anemia in stage 3b chronic kidney disease [...] WITH AUTO DIFFERENTIAL Routine 06/08/2024 10:44 AM INVOICE CONTROL CLERK Anemia in stage 3b chronic kidney disease (HCC) Hypertension, essential Secondary hyperparathyroidism of renal origin Stage 3 chronic kidney disease, unspecified whether stage 3a or 3b CKD (HCC) Primary hypertension Vitamin D deficiency Type 2 diabetes mellitus with stage 3a chronic kidney disease, with long-term current use of insulin (HCC) Fatigue, unspecified type GABRIELA (acute kidney injury) PTH Routine 06/08/2024 10:44 AM INVOICE CONTROL CLERK Anemia in stage 3b chronic kidney disease [...] RATIO, URINE, RANDOM Routine 06/08/2024 10:44 AM INVOICE CONTROL CLERK Anemia in stage 3b chronic kidney disease (HCC) Hypertension, essential Secondary hyperparathyroidism of renal origin Stage 3 chronic kidney disease, unspecified whether stage 3a or 3b CKD (HCC) Primary hypertension Vitamin D deficiency Type 2 diabetes mellitus with stage 3a chronic kidney disease, with long-term current use of insulin (HCC) Fatigue, unspecified type GABRIELA (acute kidney injury) LIPID PANEL Routine 03/08/2023 11:55 AM INVOICE CONTROL CLERK Hyperlipidemia, unspecified hyperlipidemia type ALBUMIN CREATININE RATIO, [...] POCT urinalysis dipstick (07/19/2024 2:16 PM CDT) [facility] Color, Urine, POC Light Yellow Clarity, ur, POC Cloudy(A) Clear Glucose, ur, POC 100.(A) Negative MG/DL Bilirubin, ur, POC Negative Negative, Small, Moderate, Large Ketones, ur, POC Negative Negative Specific [place], POC 1.015 1.003 - 1.030 Blood, ur, POC Hemolyzed, trace(A) Negative pH, ur, POC 6.0 5.0 - 8.0 Protein, ur, POC 30.(A) Negative Urobilinogen, urine, POC 0.2 0.2 - 1.0 mg/dL Nitrite, ur, POC Negative Negative Leukocytes, ur, POC Negative Negative Lot Number [id number] Urine 07/19/2024 2:16 PM CDT [facility] POINT OF CARE TEST ORDER ALAN Final Result * Urine culture Urine, clean voided (07/19/2024 12:00 PM CDT) [facility] Report Final Report: No growth Comment:Testing performed by : [facility], [address] [place]., [address] Urine, clean voided 07/19/2024 12:00 PM CDT 07/20/2024 2:19 AM CDT Narrative MERLINE AMADOR - 07/21/2024 7:38 AM CDT Testing performed by [facility] Microbiology Laboratory ([phone]) [facility] LAB MICROBIOLOGY - GENER AL ORDERABLES Final Result MERLINE AMADOR [address] [place] [address] * (ABNORMAL) eGFR (07/18/2024 12:07 PM CDT) [facility] eGFR 23(L) >=60 mL/min/1. 73 m2 [...] Final Resul t [facility] [place] [address] * (ABNORMAL) Differential, auto (07/18/2024 12:07 PM CDT) Neutrophil abs 17.55(H) 1.50 - 6.50 K/cumm Comment:Testing performed by : [facility] Heme Lab, [address] [place], [place] [phone] Lymphocyte abs 0.96 0.80 - 3.30 K/cumm [facility] Comment:Testing performed by : [facility], [address] [place] [address] Monocyte abs 1.48(H) 0.20 - 0.80 K/cumm [facility] Comment:Testing performed by : [facility], [address] [place] [address] Eosinophil abs 0.06 0.00 - 0.50 K/cumm [facility] Comment:Testing performed by : [facility], [address] [place] [phone] Basophil abs 0.03 0.00 - 0.10 K/cumm [facility] Comment:Testing performed by : [facility], [address] [place], [place] [id number] Neutrophil pct 87.4 % [facility] Comment: Interpretive Data Percent cell count reference ranges are not reported, since discordance with absolute values may lead to misinterpretation of CBC data. Current Interpretive Data was last revised on 2017. Testing performed by: [facility], [address] [place], [place] [id number] Lymphocyte pct 4.8 % [facility] Comment: Interpretive Data Percent cell count reference ranges are not reported, since discordance with absolute values may lead to misinterpretation of CBC data. Current Interpretive Data was last revised on 2017. Testing performed by: [facility][Note 3] Lab, [address] [place] [address] Monocyte pct 7.4 % [facility] Comment: Interpretive Data Percent cell count reference ranges are not reported, since discordance with absolute values may lead to misinterpretation of CBC data. Current Interpretive Data was last revised on 2017. Testing performed by: [facility][Note 3] Lab, [address] [place] [address] Eosinophil pct 0.3 % [facility] Comment: Interpretive Data Percent cell count reference ranges are not reported, since discordance with absolute values may lead to misinterpretation of CBC data. Current Interpretive Data was last revised on 2017. Testing performed by: [facility], [address] [place] [phone] Basophil pct 0.2 % [facility] Comment: Interpretive Data Percent cell count reference ranges are not reported, since discordance with absolute values may lead to misinterpretation of CBC data. Current Interpretive Data was last revised on 2017. Testing performed by: [facility][Note 3] Lab, [address] [place] [address] Blood 07/18/2024 12:0 7 PM CDT 07/18/2024 12:22 PM CDT Gautam Cope MD LAB BLOOD ORDERABLES Final Resul t [facility] [place] [address] * (ABNORMAL) CBC with auto differential (07/18/2024 12:07 PM CDT) WBC 20.09(H) 3.80 - 9.90 K/cumm Comment:Testing performed by : [facility], [address] [place] [address] Hgb 12.1(L) 13.0 - 17.5 g/dL MERLINE PERDOMO Comment:Testing performed by : [facility], [address] [place] [address] Hct 38.2(L) 38.9 - 50.3 % [facility]LINE PER[facility] Comment:Testing performed by : [facility], [address] [place] [address] Plt 451(H) 150 - 400 K/cumm MERLINE PERDOMO Comment:Testing performed by : [facility], [address] [place] [address] MPV 7.7 6.8 - 10.4 fL [facility] Comment:Testing performed by : [facility], [address] [place] [address] RBC 4.46 4.30 - 5.80 M/cumm MERLINE PERDOMO Comment:Testing performed by : [facility], [address] [place] [address] MCV 85.5 81.3 - 96.4 fL [facility] Comment:Testing performed by : [facility], [address] [place] [address] MCH 27.1 27.1 - 33.3 pg [facility] Comment:Testing performed by : [facility], [address] [place] [address] MCHC 31.7(L) 32.3 - 35.7 g/dL [facility]ER[facility]AL [facility] Comment:Testing performed by : [facility], [address] [place] [phone] RDW CV 14.9 11.1 - 14.9 % [facility] Comment:Testing performed by : [facility] Cancer [facility], [address] [place] [phone] NRBC abs 0.00 0.00 - 0.01 K/cumm [facility] Comment:Testing performed by : [facility], [address] [place] [phone] Blood 07/18/2024 12:0 7 PM CDT 07/18/2024 12:22 PM CDT Gautam Cope MD LAB BLOOD ORDERABLES Final Resul t Performing Organization Address [facility] de Phone Number [facility] [place] [address] * PSA diagnostic (07/18/2024 12:07 PM CDT) [...] Resul t Performing Organization Address [facility] de Phone Number [facility] [place] [address] * Lactate dehydrogenase (LD) (07/18/2024 12:07 PM CDT) Lactate dehydrogenase (LDH) 216 100 - 250 Units/L Blood 07/18/2024 12:0 7 PM CDT 07/18/2024 12:25 PM CDT Gautam Cope MD LAB BLOOD ORDERABLES Final Resul t Performing Organization Address [facility] [place] [address] * (ABNORMAL) Hemoglobin A1c (07/18/2024 12:07 PM CDT) [facility] Hgb A1C 8.0(H) 4.0 - 5.6 % Estimated Average Glucose 183 mg/dL [facility] Comment: The ADA recommends reporting [...] Resul t Performing Organization Address [facility] [place] [address] * (ABNORMAL) Comprehensive metabolic panel (07/18/2024 12:07 PM CDT) [facility] Sodium 142 135 - 145 mmol/L Potassium, pl 4.6 3.3 - 4.9 mmol/L [facility] Chloride 106 97 - 110 mmol/L [facility] CO2 24 22 - 32 mmol/L [facility] Anion gap 12 2 - 15 mmol/L [facility] BUN 52(H) 6 - 25 mg/dL [facility] Creatinine 2.66(H) 0.80 - 1.30 mg/dL [facility] Glucose 164 70 - 199 mg/dL [facility] Comment: Interpretive Data Fasting glucose [...] 2022. Calcium 9.0 8.5 - 10.3 mg/dL [facility] Bilirubin, total 0.5 0.1 - 1.2 mg/dL [facility] Protein, pl 6.7 6.5 - 8.5 g/dL [facility] Albumin 4.0 3.5 - 5.0 g/dL [facility] Alk phos 126 40 - 130 Units/L [facility] ALT 10 7 - 55 Units/L [facility] AST 13 10 - 50 Units/L [facility] Blood 07/18/2024 12:0 7 PM CDT 07/18/2024 12:25 PM CDT Gautam Cope MD LAB BLOOD ORDERABLES Final Resul t [facility] [place] [address] * SCAN - RADIOLOGY/IMAGING (07/01/2024 9:44 AM CDT) Anatomical Region Laterality Modality Other us Provider Scanning Final Result * (ABNORMAL) eGFR (06/14/2024 3:48 PM INVOICE CONTROL CLERK) eGFR 26(L) >=60 mL/min/1. 73 m2 Comment: [...] last reviewed 2021. Blood 06/14/2024 3:48 PM INVOICE CONTROL CLERK 06/14/2024 4:07 PM INVOICE CONTROL CLERK us Lin Guerrero MD LAB BLOOD ORDERABLES Final Resul t [facility] Department [place] [address] * (ABNORMAL) Renal function panel (06/14/2024 3:48 PM INVOICE CONTROL CLERK) Sodium 143 135 - 145 mmol/L Potassium, pl 5.0(H) 3.3 - 4.9 mmol/L [facility] Chloride 105 97 - 110 mmol/L [facility] CO2 28 22 - 32 mmol/L [facility] Anion gap 10 2 - 15 mmol/L [facility] BUN 48(H) 6 - 25 mg/dL [facility] Creatinine 2.42(H) 0.80 - 1.30 mg/dL [facility] Glucose 152 70 - 199 mg/dL [facility] Comment: Interpretive Data Fasting glucose [...] 2022. Calcium 8.7 8.5 - 10.3 mg/dL [facility] Phosphorus, pl 3.1 2.3 - 4.5 mg/dL [facility] Albumin 3.9 3.5 - 5.0 g/dL [facility] Blood 06/14/2024 3:48 PM INVOICE CONTROL CLERK 06/14/2024 4:03 PM INVOICE CONTROL CLERK Lin Guerrero MD LAB BLOOD ORDERABLES Final Resul t Performing Organization Address [facility] de Phone Number [facility] [place] [address] * Urinalysis reflex to microscopic (06/08/2024 10:47 AM INVOICE CONTROL CLERK) Color, ur Straw Yellow Clarity, ur Clear Clear [facility] Specific gravity, ur 1.012 1.003 - 1.030 [facility] pH, urine 6.0 [facility] Comment: Interpretive Data U rine pH is affected by diet, medications, systemic acid-base disturbances, and renal tubular function. pH may affect urinary stone formation. For example, urine pH below 6.0 may help reduce the tendency for calcium phosphate stones and pH greater than 6.0 may reduce the tendency for uric acid stone formation. Source: [facility] Current Interpretive Data was last revised on 2017 Protein, ur ql Trace Negative [facility] Glucose, ur ql Negative Negative [facility] Ketones, ur Negative Negative [facility] Bilirubin, ur Negative Negative [facility] Blood, ur Negative Negative [facility] Urobilinogen, ur <2.0 <2.0 mg/dL [facility] Nitrite, ur Negative Negative [facility] Leukocyte esterase, ur Negative Negative [facility] UA reflex comment Reflex conditions for microscopic UA not met. [facility] Urine 06/08/2024 10:4 7 AM INVOICE CONTROL CLERK 06/08/2024 11:41 AM INVOICE CONTROL CLERK Lin Guerrero MD LAB URINE ORDERABLES Final Resul t Performing Organization Address [facility]/State/ZIP Co de Phone Number [facility] [place] [address] * (ABNORMAL) eGFR (06/08/2024 10:44 AM INVOICE CONTROL CLERK) Pathologist [facility] eGFR 22(L) >=60 mL/min/1. 73 m2 Comment: [...] reviewed 2021. Blood 06/08/2024 10:4 4 AM INVOICE CONTROL CLERK 06/08/2024 11:23 AM INVOICE CONTROL CLERK us Lin Guerrero MD LAB BLOOD ORDERABLES Final Resul t [facility] [place] [address] * (ABNORMAL) Differential, auto (06/08/2024 10:44 AM INVOICE CONTROL CLERK) Pathologist [facility] Neutrophil abs 7.8(H) 1.5 - 6.5 K/cumm Imm gran abs 0.1 0.0 - 0.1 K/cumm [facility] Lymphocyte abs 1.9 0.8 - 3.3 K/cumm [facility] Monocyte abs 1.0(H) 0.2 - 0.8 K/cumm [facility] Eosinophil abs 0.1 0.0 - 0.5 K/cumm [facility] Basophil abs 0.0 0.0 - 0.1 K/cumm [facility] Neutrophil pct 71.1 % [facility] Comment: Interpretive Data Percent cell count reference ranges are not reported, since discordance with absolute values may lead to misinterpretation of CBC data. Current Interpretive Data was last revised on 2017. Imm gran pct 0.8 % [facility] Comment: Interpretive Data Percent cell count reference ranges are not reported, since discordance with absolute values may lead to misinterpretation of CBC data. Current Interpretive Data was last revised on 2017. Lymphocyte pct 17.1 % [facility] Comment: Interpretive Data Percent cell count reference ranges are not reported, since discordance with absolute values may lead to misinterpretation of CBC data. Current Interpretive Data was last revised on 2017. Monocyte pct 9.3 % [facility] Comment: Interpretive Data Percent cell count reference ranges are not reported, since discordance with absolute values may lead to misinterpretation of CBC data. Current Interpretive Data was last revised on 2017. Eosinophil pct 1.3 % [facility] Comment: Interpretive Data Percent cell count reference ranges are not reported, since discordance with absolute values may lead to misinterpretation of CBC data. Current Interpretive Data was last revised on 2017. Basophil pct 0.4 % [facility] Comment: Interpretive Data Percent cell count reference ranges are not reported, since discordance with absolute values may lead to misinterpretation of CBC data. Current Interpretive Data was last revised on 2017. Blood 06/08/2024 10:4 4 AM INVOICE CONTROL CLERK 06/08/2024 11:23 AM INVOICE CONTROL CLERK us Lin Guerrero MD LAB BLOOD ORDERABLES Final Resul t [facility] [place] [address] * (ABNORMAL) CBC with auto differential (06/08/2024 10:44 AM INVOICE CONTROL CLERK) WBC 11.0(H) 3.8 - 9.9 K/cumm Hgb 12.0(L) 13.0 - 17.5 g/dL [facility] Hct 36.9(L) 38.9 - 50.3 % [facility] Plt 357 150 - 400 K/cumm [facility] MPV 9.8 9.1 - 12.3 fL [facility] RBC 4.27(L) 4.30 - 5.80 M/cumm [facility] MCV 86.4 81.3 - 96.4 fL [facility] MCH 28.1 27.1 - 33.3 pg [facility] MCHC 32.5 32.3 - 35.7 g/dL [facility] RDW CV 14.1 11.1 - 14.9 % [facility] RDW SD 44.2 35.7 - 48.1 fL [facility] NRBC abs 0.00 0.00 - 0.01 K/cumm [facility] Blood 06/08/2024 10:4 4 AM INVOICE CONTROL CLERK 06/08/2024 11:23 AM INVOICE CONTROL CLERK us Lin Guerrero MD LAB BLOOD ORDERABLES Final Resul t Performing Organization Address [facility] de Phone Number [facility] [place] [address] * (ABNORMAL) Protein / creatinine ratio, urine, random (06/08/2024 10:44 AM INVOICE CONTROL CLERK) Protein, ur, quant 21.3 mg/dL Comment: Interpretive Data No reference range established. Current interpretive data was last revised 2018. Creatinine Ur 52.2 mg/dL [facility] Comment: Interpretive Data No reference range established. Current interpretive data was last revised 2018. Protein/creatinin e ratio 408.0(H) 0.0 - 180.0 mg/g CR [facility] Urine 06/08/2024 10:4 4 AM INVOICE CONTROL CLERK 06/08/2024 11:23 AM INVOICE CONTROL CLERK Lin Guerrero MD LAB URINE ORDERABLES Final Resul t Performing Organization Address City/State/[facility] Co de Phone Number [facility] [place] [address] * Vitamin D 25 hydroxy (06/08/2024 10:44 AM INVOICE CONTROL CLERK) Pathologist [facility] Vitamin D 25-OH 42 30 - 80 ng/mL Blood 06/08/2024 10:4 4 AM INVOICE CONTROL CLERK 06/08/2024 11:23 AM INVOICE CONTROL CLERK us Lin Guerrero MD LAB BLOOD ORDERABLES Final Resul t Performing Organization Address [facility] Co de Phone Number [facility] [place] [address] * (ABNORMAL) PTH (06/08/2024 10:44 AM INVOICE CONTROL CLERK) [facility] PTH 78(H) 15 - 65 pg/mL Blood 06/08/2024 10:4 4 AM INVOICE CONTROL CLERK 06/08/2024 11:23 AM INVOICE CONTROL CLERK Lin Guerrero MD LAB BLOOD ORDERABLES Final Resul t Performing Organization Address [facility] Co de Phone Number [facility] Department [place] [address] * (ABNORMAL) Renal function panel (06/08/2024 10:44 AM INVOICE CONTROL CLERK) [facility] Sodium 142 135 - 145 mmol/L Potassium, pl 4.8 3.3 - 4.9 mmol/L [facility] Chloride 107 97 - 110 mmol/L [facility] CO2 27 22 - 32 mmol/L [facility] Anion gap 8 2 - 15 mmol/L [facility] BUN 60(H) 6 - 25 mg/dL [facility] Creatinine 2.72(H) 0.80 - 1.30 mg/dL [facility] Glucose 94 70 - 199 mg/dL [facility] Comment: Interpretive Data Fasting glucose [...] 2022. Calcium 9.0 8.5 - 10.3 mg/dL [facility] Phosphorus, pl 3.5 2.3 - 4.5 mg/dL [facility] Albumin 3.8 3.5 - 5.0 g/dL [facility] Blood 06/08/2024 10:4 4 AM INVOICE CONTROL CLERK 06/08/2024 11:23 AM INVOICE CONTROL CLERK us Lin Guerrero MD LAB BLOOD ORDERABLES Final Resul t [facility] [place] [address] * (ABNORMAL) Lipid panel (03/08/2023 11:55 AM INVOICE CONTROL CLERK) Cholesterol 193 30 - 199 mg/dL [facility] Comment: Interpretive Data Ages < [...] revised on 2017. Triglycerides 250(H) <=149 mg/dL [facility] Comment: Interpretive Data Ages < [...] revised on 2017. HDL 36(L) >=40 mg/dL [facility] Comment: Interpretive Data Ages < [...] on 2017. LDL, calculated 107 <=129 mg/dL [facility] Comment: Interpretive Data Ages < [...] Pediatrics 2011;128:S213 2. NCEP Expert Panel. Circulation 2003;110:227 Current Interpretive Data was last revised on 2017. Non-HDL Cholesterol 157 mg/dL [facility] Comment: Interpretive Data Ages < [...] Pediatrics 2011;128:S213 2. NCEP Expert Panel. Circulation 2003;110:227 Current Interpretive Data was last revised on 2017. Chol/HDL ratio 5 [facility] Blood 03/08/2023 11:5 5 AM INVOICE CONTROL CLERK 03/08/2023 3:48 PM INVOICE CONTROL CLERK Kraig Ching MD LAB BLOOD ORDERABLES Final Re sult Performing Organization Address [facility] [place] [address] * (ABNORMAL) Albumin Creatinine Ratio, Urine (01/01/2023 10:40 AM CDT) Albumin Ur 227.3 mg/L [facility] Comment: Interpretive Data No reference range established. Current interpretive data was last revised 2018. Creatinine Ur 66.5 mg/dL [facility] Comment: Interpretive Data No reference range established. Current interpretive data was last revised 2018. Albumin Creatinine Ratio, Ur 342(H) 1 - 29 mg/g [facility] Urine 01/01/2023 10:4 0 AM CDT 01/01/2023 10:45 AM CDT Kraig Ching MD LAB URINE ORDERABLES Final Re sult Performing Organization Address [facility] [place] [address] * DIABETES EYE EXAM (06/29/2018) Pathologist [facility] Diabetic Eye Exam Normal Historical Provider HEALTH MAINTENANCE Final Result from Last 3 Months or Most Recently Relevant to Health Maintenance Insurance [employer] MEDICARE T MEDICARE AET[employer] MEDICARE Advance Directives For more information, please contact: [phone] * Full Code (Latest Code Status on File) Date Activated Date Inactivated Comments 12/16/2017 2:44 PM 12/16/2017 7:18 PM Care Teams Plant Operations Engineer Relationship Specialty Start Date End Date Kraig Ching MD [address] [place] [address] PCP - General 07/10/16 Gautam Cope MD [address] [place] [address] Medical Oncologist/Bulk Plant Manager Medical Oncology 08/18/18 Tramaine Roe MD [address] [place] [address] Referring Physician Urology 08/18/18 Sukhwinder Uribe MD [address] [place] [address] Consulting Physician Urology 08/18/18 Shay Guillermo MD [address] [place] [address] Referring Physician Urology 08/18/18 Marsha Landis, RN Registered Nurse 11/17/18
[2024-08-29 14:10] LABS: Glucose Point of Care 176 mg/dl (65-105)
[2024-08-29] MEDS: ONDANSETRON INJ 4 MG/2 ML VIAL IV PUSH (14:12)
[2024-08-29 14:17] LABS: Basophils Percent Auto 0.3 % (0.2-1.2); Eosinophils Absolute Auto 0.3 K/mm3 (0-0.3); Eosinophils Percent Auto 2.5 % (0-4.4); Hematocrit 33.5 % (42.0-52.0); Hemoglobin 10.5 g/dL (14.0-18.0); Immature Granulocyte Absolute 0.07 K/mm3 (0.00-0.031); Immature Granulocyte Percent A 0.6 % (0-0.5); Lymphocytes Absolute Auto 1.48 K/mm3 (0.9-3.2); Lymphocytes Percent Auto 13.6 % (18.3-44.2); Mean Corpuscular HGB Conc 31.3 g/dl (32-36); Mean Corpuscular Hemoglobin 26.6 pg (26-34); Mean Corpuscular Volume 84.8 fl (80-100); Mean Platelet Volume 9.5 fl (7.4-10.4); Monocytes Absolute Auto 1.2 K/mm3 (0.1-0.6); Monocytes Percent Auto 11.3 % (2.6-8.5); Neutrophils Absolute Auto 7.8 K/mm3 (1.3-6.7); Neutrophils Percent Auto 71.7 % (45.5-73.1); Platelet Count Result 384 k/mm3 (150-375); Red Blood Count 3.95 M/mm3 (4.6-6.20); Red Cell Distribution Width 14.3 % (11.5-14.5); White Blood Count 10.9 K/mm3 (4.5-10.0)
[2024-08-29 14:28] LABS: Alanine Aminotransferase 16 U/L (6-50); Albumin Level 3.3 g/dL (3.5-5.1); Alkaline Phosphatase 105 U/L (38-126); Anion Gap 10 mmol/L (4-12); Aspartate Amino Transferase 22 U/L (17-59); Bilirubin,Total 0.5 mg/dL (0.2-1.3); Blood Urea Nitrogen 32 mg/dL (9-20); Calcium 8.2 mg/dL (8.4-10.2); Carbon Dioxide 21 mmol/L (22-30); Chloride 99 mmol/L (98-107); Estimated CRCL calculation 20 ml/min; Estimated Glomerular Filt Rate 24; Glucose 173 mg/dL (65-110); Lipase 134 U/L (23-300); Potassium 3.7 mmol/L (3.4-5.0); Sodium 130 mmol/L (137-145)
[2024-08-29 14:37] LABS: Partial Thromboplastin Time 34.2 Seconds (22.3-36.8); Prothrombin Time 13.6 Seconds (11.1-14.7)
[2024-08-29 14:40] LABS: NT Pro B Type Natriuretic Pept 5390 pg/mL (19.9-100); Troponin I 0.031 ng/mL (0.000-0.034)
[2024-08-29 14:58] LABS: Influenza A QL RT-PCR Negative (Negative); Influenza B QL RT-PCR Negative (Negative); RSV RNA, RT-PCR Negative (Negative); SARS-CoV-2 RNA PCR Negative (Negative)
[2024-08-29 17:26] VITALS: BP 106/63; PULSE 94; RESP 21; O2SAT 96
--- NOTE | 2024-08-29 17:37 | PC.NURSE ---
Pt stating he cannot pee at this time, bladder scan performed showing 36mL pt reports hx of CKD. Pt states he still produces urine, EDP Selene Munoz PA-C informed.
[2024-08-29 18:15] VITALS: BP 104/81; PULSE 96; RESP 24; O2SAT 94
[2024-08-29 19:10] VITALS: BP 129/68; PULSE 103; RESP 26; O2SAT 96
[2024-08-29] MEDS: SODIUM CHLORIDE 0.9% IV 500 ML 999 ML IV CONT (19:27)
[2024-08-29] MEDS: PIPERACILLN/TAZ 3.375GM/NS50ML 3.375 GM/50 ML BAG IVPB (20:46)
[2024-08-29 21:27] VITALS: BP 113/48; PULSE 93; RESP 16; O2SAT 98
[2024-08-29 21:42] VITALS: BP 129/63; PULSE 107; RESP 18; TEMP 36.7; O2SAT 96
[2024-08-29 21:48] VITALS: BMI 27.0
--- NOTE | 2024-08-29 22:12 | PM.IMHP ---
H&P: HPI History of Present Illness Date/Time: 08/29/24 22:12 Chief Complaint: nausea/vomiting/shortness of breath Narrative: This is an 83-year-old male, with past medical history of hypertension, diabetes, CKD, AFIB, who presented to the ED with complaint of ongoing nausea/vomiting and generalized weakness. Patient also reported some shortness of breath and cough. He was in the ER a couple days ago but his symptoms improved with Zofran and he wanted to go home. Today he returned with similar symptoms but family told ER they could not take care of him at home and he needed to be placed in longer term placement. Workup in the ER reveals slight worsening of baseline CKD and chronic hyponatremia as well as findings of increased pro-BNP and WBCs. CXR showed right basilar atelectasis vs pneumonia. CT scan of chest showed chronic bilalteral wall thickening which may reflect bronchitis or aspiration. Given patient's vomiting, cough and shortness of breath he was started on Zosyn for possible aspiration pneumonia. He will be kept NPO except ice chips and meds until evaluated by speech therapy for swallow study. PT/OT will be consulted for placement recommendations and case management consulted for placement assistance. Patient is awake, alert but confused. Patient denies difficulty swallowing but notes increased cough and shortness of breath since he has been sick the past several days. 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 He smokes 1-2 cigarettes per day most days. He denies marijuana use or other drug use. He drinks 1-2 alcoholic drinks per week. He has cats. Code status -full Surrogate decision maker - Years smoked: 50 Smoking status: Former smoker Tobacco type: cigarettes Second hand tobacco smoke exposure: Yes Smoking end date: 08/11/03 Additional smoking assessment comments: marijuana daily and regular cigarettes smokes intermittently Alcohol intake: never Drinks per week: 1 Substance use: never Substance use type: marijuana Other substance usage details: smoke once a day Last use: 07/30/2023 Do You Feel Safe in your Home?: Yes Lack of Transportation: No Lack of Food: Never True Current Housing: I Have Housing Concerned About Future Housing: No Difficulty Paying Gas/Electric Bills: No Difficulty Paying for Meds: No Currently Unemployed: No Education: High School Diploma/GED Difficulty w/ Childcare or Family Care: No Spiritual care concerns: No Meds Home Medications and Allergies Home Medications ?Medication ?Instructions ?Recorded ?Confirmed ?Type insulin aspart U-100 100 unit/mL 8 unit subcut TID 06/19/22 08/29/24 History (3 mL) subcutaneous pen (Novolog FlexPen U-100 Insulin aspart) insulin glargine 100 unit/mL (3 28 unit subcut QHS 06/19/22 08/29/24 History mL) subcutaneous pen (Lantus Solostar U-100 Insulin) pantoprazole 40 mg tablet,delayed 40 mg PO DAILY 06/19/22 08/29/24 History release albuterol sulfate 90 mcg/actuation 2 puff inhalation QID PRN 06/21/22 08/29/24 Rx aerosol inhaler shortness of breath or wheezing #8.5 grams abiraterone 250 mg tablet 1,000 mg PO HS 03/26/24 08/29/24 History carvedilol 12.5 mg tablet 12.5 mg PO Q12H 03/26/24 08/29/24 History chlorthalidone 25 mg tablet 25 mg PO DAILY 03/26/24 08/29/24 History dorzolamide 22.3 mg-timolol 6.8 1 drp EACH EYE Q12H 03/26/24 08/29/24 History mg/mL eye drops insulin aspart U-100 100 unit/mL 1 sliding scale dose subcut TID 03/26/24 08/29/24 History (3 mL) subcutaneous pen (Novolog FlexPen U-100 Insulin aspart) lisinopril 20 mg tablet 40 mg PO DAILY 03/26/24 08/29/24 History pravastatin 20 mg tablet 20 mg PO HS 03/26/24 08/29/24 History sitagliptin phosphate 25 mg tablet 25 mg PO DAILY 03/26/24 08/29/24 History (Januvia) ondansetron 4 mg disintegrating 4 mg PO Q8H #14 tabs 08/28/24 08/29/24 Rx tablet Allergies Allergy/AdvReac Type Severity Reaction Status Date / Time No Known Drug Allergies Allergy Unknown Other Verified 08/29/24 17:26 Vital Signs Vital Signs - 24 hr 08/29/24 13:57 08/29/24 17:26 08/29/24 18:15 Temperature 36.6 C Pulse Rate 99 94 96 Respiratory Rate 18 21 H 24 H Blood Pressure 103/51 L 106/63 104/81 Pulse Oximetry 97 96 94 Oxygen Delivery Room Air 08/29/24 19:10 08/29/24 21:27 08/29/24 21:42 Temperature 36.7 C Pulse Rate 103 H 93 107 H Respiratory Rate 26 H 16 18 Blood Pressure 129/68 113/48 L 129/63 Pulse Oximetry 96 98 96 Oxygen Delivery Exam Narrative: GENERAL: Well nourished, appears fatigued, cough but no respiratory distress HEAD: Normocephalic, atraumatic. ENT:? Mucous membranes moist. CHEST: Frequent cough with course sounds bilaterally HEART: Regular rate and rhythm. ? Normal peripheral pulses. ABDOMEN: Soft, nontender, nondistended. EXTREMITIES: Normal range of motion. No peripheral edema. SKIN: Warm dry normal color NEURO: Awake, alert, mildly confused but pleasant PSYCH: Normal affect H&P: Results Labs Labs: Short CBC 08/29/24 Range/Units 14:09 WBC 10.9 H (4.5-10.0) K/mm3 Hgb 10.5 L (14.0-18.0) g/dL Hct 33.5 L (42.0-52.0) % Plt Count 384 H (150-375) k/mm3 BMP 08/29/24 14:09 Sodium 130 L Potassium 3.7 Chloride 99 Carbon Dioxide 21 L BUN 32 H Creatinine 2.60 H Glucose 173 H Calcium 8.2 L Cardiac Enzymes 08/29/24 Range/Units 14:09 Troponin I 0.031 (0.000-0.034) ng/mL Liver Function 08/29/24 Range/Units 14:09 Total Bilirubin 0.5 (0.2-1.3) mg/dL AST 22 (17-59) U/L ALT 16 (6-50) U/L Alkaline Phosphatase 105 (38-126) U/L Albumin 3.3 L (3.5-5.1) g/dL Pulse Oximetry SpO2 results: 94-98% on room air Attestation: I personally reviewed and interpreted this pulse oximetry as follows: Interpretation: no need for supplemental oxygenation at this time ECG Attestation: I personally reviewed and interpreted this ECG as follows: ECG completion date: 08/29/24 ECG completion time: 15:01 Prior ECG tracings: available for review Interpretation: Atrial fibrillation with RVR rate 101 do QRS duration 136 with right bundle-branch block QTC 460 QRS axis -49 left axis deviation--bifascicular block to which is noted not present prior EKG Imaging Chest x-ray: Radiologist's impression: XR chest 2V Ordering provider: Kavitha Marks PA-C History: 83 years Male with . sob . Comparison: August 27, 2024 FINDINGS: MEDIASTINUM: The cardiac silhouette is moderately enlarged. LUNGS: No effusions or pneumothorax. Prominent markings in the right lower lobe suggestive of atelectasis versus pneumonia. OTHER: No free air under the diaphragm. Degenerative changes of the spine. IMPRESSION: Right basilar atelectasis versus pneumonia. Reviewed, dictated and finalized at location A. CT scan - chest: Radiologist's impression: EXAMINATION: CT diagnostic chest wo con DATE: 08/29/2024 19:01 INDICATION: dyspnea TECHNIQUE: Computed tomography (CT) of the chest was performed with 100 mL Omnipaque-350 intravenous contrast. Automated exposure control and iterative reconstruction technique were employed. The dose-length product was 353.88 mGy-cm. COMPARISON: 07/31/2024. FINDINGS: CHEST: Thoracic aorta: The ascending thoracic aorta is dilated to 4.0 cm. Atherosclerotic calcifications. Lung parenchyma and airways: Mild peripheral and basilar reticular interstitial change, likely representing chronic interstitial lung disease minimal airway debris. Bronchial wall thickening. Thoracic inlet, axillae and chest wall: No thyroid or soft tissue mass. No axillary lymphadenopathy. Mediastinum: Patulous esophagus. Mildly dilated central pulmonary arteries as can be seen with pulmonary hypertension. Heart and pericardium: Aortic valve calcifications. Coronary artery calcifications: Mild. Pleura: No effusion or mass. Upper abdomen: No significant finding. Thoracic bones: No acute osseous finding in the chest. Stable mild height loss at T6. IMPRESSION: Mild chronic bronchial wall thickening may reflect a component of bronchitis. Consider aspiration in the differential. Mild chronic interstitial lung disease in a UIP pattern, with a patulous esophagus, correlate for history of scleroderma. Ascending thoracic aortic ectasia. Reviewed, dictated and finalized at [facility]. Assessment and Plan Assessment and plan (1) Aspiration pneumonia: Qualifiers: Aspiration pneumonia type: unspecified Laterality: unspecified laterality Lung location: unspecified part of lung Qualified Code(s): J69.0 - Pneumonitis due to inhalation of food and vomit Code(s): J69.0 - Pneumonitis due to inhalation of food and vomit Status: Acute Assessment and Plan: -Nausea/vomiting for several days, initially improved with Zofran -Cough, shortness of breath increased since vomiting started. -CT scan shows findings consistent with chronic bronchitis and aspiration -No current oxygen need -ER started Zosyn which will be continued (2) Acute on chronic renal failure: Code(s): N17.9 - Acute kidney failure, unspecified; N18.9 - Chronic kidney disease, unspecified Status: Acute Assessment and Plan: -History of CKD, stage 3b-4 -Currently increased BUN/Cr compared to prior result -Likely mild dehydration from nausea/vomiting for several days though increasing renal dysfunction can cause nausea -Avoid nephrotoxins if possible -Diabetic/low sodium diet -Some home meds on hold until 09/11 per medical record (3) Type 2 diabetes mellitus: Code(s): E11.9 - Type 2 diabetes mellitus without complications Status: Chronic Assessment and Plan: -Continue home medications including insulin and Jardiance once no longer NPO -Diabetic/low sodium diet if cleared by speech therapy (4) Paroxysmal atrial fibrillation: Code(s): I48.0 - Paroxysmal atrial fibrillation Status: Acute Assessment and Plan: -Mild RVR noted in ER, currently rate controlled -Not currently anticoagulated, need to inquire with family about this (5) Hypertension: Code(s): I10 - Essential (primary) hypertension Status: Chronic Assessment and Plan: -Blood pressure reviewed on 08/29 -Continue Coreg as long as BP supports such (6) Adult failure to thrive: Code(s): R62.7 - Adult failure to thrive Status: Acute Assessment and Plan: -Family seeking placement per ER report, I did not see/talk to family -Patient mildly confused, possible aspiration pneumonia, worsening renal dysfunction -PT/OT/ST/Case Management all consulted Quality VTE Prophylaxis VTE prophylaxis: mechanical ordered If No VTE Prophylaxis Answer both mechanical and pharmacologic: Reason no pharmacologic proph: medical contraindication (Uncertain why patient is not anticoagulated with atrial fibrillation) Total time spent on this patient was 95 minutes Hospitalist MIPS Advance Care Plan I have confirmed that the patient's Advanced Care Plan is present, code status is documented, or surrogate decision maker is listed in patient medical record.: Yes Medication Reconciliation I have utilized all available resources to obtain, update and review the patients current medications (includes all prescriptions, OTC, herbals, cannabis, and nutritional supplements).: Yes
[2024-08-29 22:55] LABS: Glucose Point of Care 133 mg/dl (65-105)
--- NOTE | 2024-08-30 | ECHO_ITS ---
Patient Info Name: David Wei Age: 83 years : 1940 Gender: Male Ht: 70 in Wt: 188 lbs BSA: 2.07 m2 HR: 107 bpm BP: 125 / 51 mmHg Heart Rhythm: Atrial Fibrillation Technical Quality: Good Exam Date: 08/30/2024 1:31 PM Patient Status: I Admit Date: 08/29/2024 Exam Type: CA echo doppler color flow Complete two-dimensional, color flow and Doppler transthoracic echocardiogram is performed. Staff Referring Physician: Catalina Zepeda Hearing Aid Technician: Maureen Whitaker Attending Provider: Jack Miller Summary 1. Complete two-dimensional, color flow and Doppler transthoracic echocardiogram is performed. 2. Left ventricular chamber dimension is mildly enlarged. 3. Left ventricular systolic function is hyperdynamic, estimated at >70. 4. There is moderately increased left ventricular wall thickness. 5. The left ventricular diastolic function is abnormal. 6. Left atrial chamber dimension is mildly enlarged. 7. Right atrial chamber dimension is mildly enlarged. 8. There is moderate aortic valve stenosis. 9. There is trace aortic valve regurgitation. 10. There is mild mitral valve regurgitation. 11. The mitral valve annulus is mildly calcified. 12. There is mild tricuspid valve regurgitation. 13. There is mild pulmonic regurgitation. 14. The aortic root size at the sinus of Valsalva is mildly dilated. Left Ventricle Left ventricular chamber dimension is mildly enlarged. Left ventricular systolic function is hyperdynamic, estimated at >70. There is moderately increased left ventricular wall thickness. The left ventricular diastolic function is abnormal. Right Ventricle Right ventricular chamber dimension is normal. Right ventricular systolic function is normal. Left Atria Left atrial chamber dimension is mildly enlarged. Right Atria Right atrial chamber dimension is mildly enlarged. Atrial Septum Intact interatrial septum visualized by color flow imaging. Aortic Valve The aortic valve is trileaflet. There is moderate aortic valve stenosis. There is trace aortic valve regurgitation. Pulmonic Valve The pulmonic valve is normal. There is no pulmonic valve stenosis. There is mild pulmonic regurgitation. Mitral Valve There is no mitral valve stenosis. There is mild mitral valve regurgitation. The mitral valve annulus is mildly calcified. Tricuspid Valve The tricuspid valve leaflets are normal. There is no significant tricuspid valve stenosis. There is mild tricuspid valve regurgitation. Moderate pulmonary hypertension, estimated pulmonary arterial systolic pressure is 51 mmHg. Pericardium/Pleural The pericardium appears normal. There is trivial pericardial effusion. Inferior Vena Cava Normal inferior vena cava with >50% collapse upon inspiration consistent with normal right atrial pressure, 10 mmHg. Aorta The aortic root size at the sinus of Valsalva is mildly dilated. Left Ventricular Outflow Tract Name Value Normal LVOT 2D LVOT Diameter 2.3 cm Pulmonic Valve Name Value Normal PV Doppler PV Peak Velocity 107 cm/s PV Peak Gradient 5 mmHg Mitral Valve Name Value Normal MV Diastolic Function MV E Peak Velocity 110 cm/s MV A Peak Velocity 1 cm/s MV E/A 109.8 MV Decel Time (PW) 230 ms MV Annular TDI MV E/e' (Septal) 11.5 MV E/e' (Lateral) 11.8 MV E/e' (Average) 11.7 Tricuspid Valve Name Value Normal TV Regurgitation Doppler TR Peak Velocity 320 cm/s TR Peak Gradient 41 mmHg Estimated PAP/RSVP RA Pressure 10 mmHg <=5 PA Systolic Pressure 51 mmHg <36 RV Systolic Pressure 51 mmHg <36 TV Annular TDI TV Lateral Tennille s' Velocity 15.3 cm/s >=9.5 Aorta Name Value Normal Ascending Aorta Ao Root Diameter (MM) 3.9 cm Ao Root Diam Index (MM) 1.9 cm/m2 Aortic Valve Name Value Normal AV Doppler AV Peak Velocity 334 cm/s AV Peak Gradient 43 mmHg AV Mean Gradient 25 mmHg AV VTI 57 cm AV Regurgitation 2D LVOT Area 4.3 cm2 Ventricles Name Value Normal LV Dimensions 2D/MM IVS Diastolic Thickness (2D) 1.4 cm 0.6-1.0 LVID Diastole (2D) 5.0 cm 4.2-5.8 LVIW Diastolic Thickness (2D) 1.3 cm 0.6-1.0 LVID Systole (2D) 3.4 cm 2.5-4.0 LVOT Diameter 2.3 cm LV Mass (2D Cubed) 278.03 g 88.00-224.00 LV Mass Index (2D Cubed) 135 g/m2 49-115 Relative Wall Thickness (2D) 0.51 <=0.42 LV Fractional Shortening/Ejection Fraction 2D/MM LV Fractional Shortening (2D) 32 % 25-43 LV EF (2D Teichholz) 60 % LV Diastolic Volume (4C MOD) 49 ml LV EF (4C MOD) 82 % LV Diastolic Volume (2C MOD) 56 ml LV EF (2C MOD) 69 % LV Diastolic Volume (BP MOD) 55 ml 62-150 LV Diastolic Volume Index (BP MOD) 26 ml/m2 34-74 LV Systolic Volume (BP MOD) 13 ml 21-61 LV Systolic Volume Index (BP MOD) 6 ml/m2 11-31 LV EF (BP MOD) 77 % 52-72 LV Diastolic Length (4C) 7.2 cm LV Systolic Length (4C) 5.9 cm LV Stroke Volume (4C MOD) 40 ml RV Dimensions 2D/MM RVID Diastole (2D) 3.9 cm 2.1-3.5 Atria Name Value Normal LA Dimensions LA Dimension (MM) 3.8 cm 3.0-4.0 LA Volume (4C A-L) 75 ml LA Volume (BP A-L) 60 ml RA Dimensions RA Systolic Major Chandler Length (4C) 5.4 cm 2.1-2.7 RA Area (4C) 20.6 cm2 <=18.0 Report Signatures
[2024-08-30 01:06] LABS: Hemoglobin A1C 7.6 % (<5.7)
[2024-08-30 01:13] LABS: Add Urine Microscopic? YES; Appearance Urine Clear (Clear); Bacteria Urine None Seen /hpf; Bilirubin Urine Negative (Negative); Blood Urine Negative (Negative); Color Urine Yellow (Yellow); Glucose Urine UA Negative (Negative); Hyaline Casts Urine Present /lpf; Ketones Urine Negative (Negative); Leukocyte Esterase Ur Negative LEU/UL (Negative); Need Manual Microscopic Reviewed; Nitrate Urine Negative (Negative); Protein Urine 1+ mg/dL (Negative); RBC Urine 0-2 /hpf (0-2); Specific Grav Ur 1.012 (1.001-1.035); Squamous Epithelial Cell Urine None Seen /hpf (Few); Urobilinogen Urine 0.2 mg/dL (<2.0); WBC Urine 0-5 /hpf (0-3); pH Urine 5.5 (5.0-9.0)
[2024-08-30 02:21] LABS: MRSA (PCR) NOT DETECTED (NOT DETECTE)
[2024-08-30] MEDS: PIPERACILLIN/TAZ 2.25G/NS 50ML 2.25 GM/50 ML BAG IVPB ×3 (05:12→20:13)
[2024-08-30 05:28] VITALS: BP 125/51; PULSE 99; RESP 17; TEMP 37.6; O2SAT 94
[2024-08-30 06:36] LABS: Basophils Percent Auto 0.3 % (0.2-1.2); Eosinophils Absolute Auto 0.3 K/mm3 (0-0.3); Eosinophils Percent Auto 2.7 % (0-4.4); Hematocrit 32.9 % (42.0-52.0); Immature Granulocyte Absolute 0.07 K/mm3 (0.00-0.031); Immature Granulocyte Percent A 0.6 % (0-0.5); Lymphocytes Absolute Auto 1.08 K/mm3 (0.9-3.2); Lymphocytes Percent Auto 9.9 % (18.3-44.2); Mean Corpuscular HGB Conc 30.4 g/dl (32-36); Mean Corpuscular Hemoglobin 26.5 pg (26-34); Mean Platelet Volume 9.5 fl (7.4-10.4); Monocytes Absolute Auto 1.3 K/mm3 (0.1-0.6); Monocytes Percent Auto 11.6 % (2.6-8.5); Neutrophils Absolute Auto 8.1 K/mm3 (1.3-6.7); Neutrophils Percent Auto 74.9 % (45.5-73.1); Platelet Count Result 345 k/mm3 (150-375); Red Blood Count 3.78 M/mm3 (4.6-6.20); Red Cell Distribution Width 14.4 % (11.5-14.5); White Blood Count 10.9 K/mm3 (4.5-10.0)
[2024-08-30 06:54] LABS: Alanine Aminotransferase 15 U/L (6-50); Alkaline Phosphatase 95 U/L (38-126); Anion Gap 8 mmol/L (4-12); Aspartate Amino Transferase 27 U/L (17-59); Bilirubin,Total 0.6 mg/dL (0.2-1.3); Blood Urea Nitrogen 31 mg/dL (9-20); Carbon Dioxide 23 mmol/L (22-30); Chloride 101 mmol/L (98-107); Estimated CRCL calculation 21 ml/min; Estimated Glomerular Filt Rate 24; Glucose 134 mg/dL (65-110); Magnesium 1.3 mg/dL (1.6-2.3); Potassium 3.1 mmol/L (3.4-5.0); Sodium 132 mmol/L (137-145)
[2024-08-30 08:00] LABS: Glucose Point of Care 138 mg/dl (65-105)
[2024-08-30] MEDS: DORZOLAMIDE/TIMOLOL OPHTH SOL 10 ML BOTTLE 1 DROP EACH EYE ×2 (08:44→20:14)
[2024-08-30 09:15] VITALS: PULSE 94; RESP 22; O2SAT 95
[2024-08-30] MEDS: ALBUTEROL SULFATE (*SP) AEROSOL 1 PUFF 2 PUFF INHALATION (09:15)
[2024-08-30 11:45] LABS: Glucose Point of Care 131 mg/dl (65-105)
--- NOTE | 2024-08-30 13:38 | P.PNIM_ITS ---
Progress Note: A&P Assessment and Plan (1) Aspiration pneumonia: Qualifiers: Aspiration pneumonia type: unspecified Laterality: unspecified laterality Lung location: unspecified part of lung Qualified Code(s): J69.0 - Pneumonitis due to inhalation of food and vomit Code(s): J69.0 - Pneumonitis due to inhalation of food and vomit Status: Acute Assessment and Plan: Nausea/vomiting for several days, initially improved with Zofran, Cough, short ness of breath increased since vomiting started. CT scan shows findings consistent with chronic bronchitis and aspiration * Continue with IV zosyn * Barium swallow evaluation pending * NPO pending findings * supplemental oxygen PRN maintain 92% (2) Acute on chronic renal failure: Code(s): N17.9 - Acute kidney failure, unspecified; N18.9 - Chronic kidney disease, unspecified Status: Acute Assessment and Plan: History of CKD, stage 3b-4, Currently increased BUN/Cr compared to prior result, Likely mild dehydration from nausea/vomiting for several days though increasing renal dysfunction can cause nausea * Avoid nephrotoxins if possible * Routine CMP monitoring GFR. * Monitor electrolytes especially potassium. * Antibiotic doses depending on creatinine clearance. (3) Type 2 diabetes mellitus: Code(s): E11.9 - Type 2 diabetes mellitus without complications Status: Chronic Assessment and Plan: * ACCUcheck ACHS * SSI * currently holding Jadiance due to NPO status * Will hold off on resuming Lantus since NPO at this time (4) Paroxysmal atrial fibrillation: Code(s): I48.0 - Paroxysmal atrial fibrillation Status: Acute Assessment and Plan: Rate controlled * Not currently anticoagulated, need to inquire with family about this (5) Hypertension: Code(s): I10 - Essential (primary) hypertension Status: Chronic Assessment and Plan: * Continue Coreg * BP per unit protocol (6) Adult failure to thrive: Code(s): R62.7 - Adult failure to thrive Status: Acute Assessment and Plan: Patient mildly confused, possible aspiration pneumonia, worsening renal dysfunction 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 Care coordination has been consulted for possible placement needs. Time Spent With Patient Time with patient: 15 - 25 minutes Subjective Date/time seen: 08/30/24 13:38 Interval history: Patient is a 83 year old male who is admitted for treatment of aspiration pneumonia 08/30/2024: Patient still with productive cough but denied SOB and CP. Continues to have liquid stool no further N/V. Barium swallow pending. Review of Systems Review of Systems: All systems reviewed & are unremarkable except as noted in HPI and below Exam Narrative: GENERAL: Well nourished, appears fatigued, cough but no respiratory distress HEAD: Normocephalic, atraumatic. ENT:? Mucous membranes moist. HEART: RRR ABDOMEN: Soft, nontender, nondistended. EXTREMITIES: Normal range of motion. No peripheral edema. SKIN: Warm dry normal color NEURO: Awake, alert, mildly confused but pleasant PSYCH: Normal affect Objective Data Vital Signs Vital Signs: Vital Signs - 24 hr 08/29/24 13:57 08/29/24 17:26 08/29/24 18:15 Temperature 97.8 F Pulse Rate 99 94 96 Respiratory Rate 18 21 H 24 H Blood Pressure 103/51 L 106/63 104/81 Pulse Oximetry 97 96 94 Oxygen Delivery Room Air Fraction of Inspired Oxygen 08/29/24 19:10 08/29/24 21:27 08/29/24 21:42 Temperature 98.0 F Pulse Rate 103 H 93 107 H Respiratory Rate 26 H 16 18 Blood Pressure 129/68 113/48 L 129/63 Pulse Oximetry 96 98 96 Oxygen Delivery Fraction of Inspired Oxygen 08/30/24 05:28 08/30/24 08:47 08/30/24 09:15 Temperature 99.6 F Pulse Rate 99 94 Respiratory Rate 17 22 H Blood Pressure 125/51 L Pulse Oximetry 94 95 Oxygen Delivery Room Air Room Air Fraction of Inspired Oxygen 21 08/30/24 09:15 Temperature Pulse Rate 94 Respiratory Rate 22 H Blood Pressure Pulse Oximetry Oxygen Delivery Fraction of Inspired Oxygen Intake/Output Intake/Output: Intake & Output 08/27/24 08/28/24 08/29/24 08/30/24 23:59 23:59 23:59 23:59 Intake Total 50 50 Output Total 36 200 Balance 14 -150 Meds/Results Medications: Active Medications Generic Name Dose Route Start Last Admin Trade Name Freq PRN Reason Stop Dose Admin Albuterol 2 puff 08/29/24 23:55 08/30/24 09:15 Albuterol Sulfate (*Sp) Aerosol 1 Puff INHALATION 2 puff Q6HRT PRN Administration shortness of breath or wheezing Carvedilol 12.5 mg 08/30/24 09:00 08/30/24 10:44 Carvedilol 12.5 Mg Tablet PO Not Given Q12HR PJ Dextrose 12.5 gm 08/29/24 23:58 Dextrose 50% 25 Gm/50 Ml Syringe IV PUSH PRN PRN Hypoglycemia Protocol Dorzolamide/Timolol 1 drop 08/30/24 09:00 08/30/24 08:44 Dorzolamide/Timolol Ophth Sarah 10 Ml Bottle EACH EYE 1 drop Q12HR PJ Administration Glucagon 1 mg 08/29/24 23:58 Glucagon For Inj 1 Mg Vial IM PRN PRN Hypoglycemia Protocol Glucose 15 gm 08/29/24 23:58 Glucose Oral Gel 15 Gm Of Glucse In 37.5 Gm Tube PO PRN PRN Hypoglycemia Protocol Guaifenesin 600 mg 08/30/24 09:00 08/30/24 10:44 Guaifenesin 12 Hr 600 Mg Tabcr PO Not Given Q12HR PJ Piperacillin Sod/Tazobactam Sod 2.25 gm in 50 mls @ 100 mls/hr 08/30/24 05:00 08/30/24 13:02 Zosyn 2.25 Gm/Ns 50 Ml IVPB 100 mls/hr Q6HR PJ Administration Dextrose 1,000 mls @ 100 mls/hr 08/29/24 23:58 Dextrose 5% 1,000 Ml IVPB PRN PRN Hypoglycemia Protocol Ondansetron HCl 4 mg 08/29/24 19:39 Ondansetron Inj 4 Mg/2 Ml Vial IV PUSH Q4H PRN Nausea Pantoprazole Sodium 40 mg 08/30/24 09:00 08/30/24 10:44 Pantoprazole 40 Mg Tablet PO Not Given DAILY PJ Perflutren Lipid Microsphere 0 ml 08/30/24 00:01 Perflutren Lipid Microspheres 1.5 Ml Vial Diluted To 10 Ml Total Volume IV PUSH 09/02/24 00:02 ONCE PRN adequate visualization Protocol Pravastatin Sodium 20 mg 08/30/24 21:00 Pravastatin Sodium 20 Mg Tablet PO HS PJ Sitagliptin Phosphate 25 mg 08/30/24 09:00 08/30/24 10:44 Sitagliptin Phosphate 25 Mg Tablet PO Not Given DAILY PJ Radiology Results: ITS Impressions Chest X-Ray 08/29/24 15:02 IMPRESSION: Right basilar atelectasis versus pneumonia. Chest CT 08/29/24 19:06 IMPRESSION: Mild chronic bronchial wall thickening may reflect a component of bronchitis. Consider aspiration in the differential. Mild chronic interstitial lung disease in a UIP pattern, with a patulous esophagus, correlate for history of scleroderma. Ascending thoracic aortic ectasia. Labs Labs: Laboratory Results - last 24 hr 08/29/24 08/29/24 08/29/24 14:06 14:09 22:50 WBC 10.9 H RBC 3.95 L Hgb 10.5 L Hct 33.5 L MCV 84.8 MCH 26.6 MCHC 31.3 L RDW 14.3 Plt Count 384 H MPV 9.5 Immature Gran % (Auto) 0.6 H Neut % (Auto) 71.7 Lymph % (Auto) 13.6 L Charles % (Auto) 11.3 H Eos % (Auto) 2.5 Baso % (Auto) 0.3 Lymph # (Auto) 1.48 Charles # (Auto) 1.2 H Eos # (Auto) 0.3 Baso # (Auto) 0.0 Abs Immat Gran (auto) 0.07 H Absolute Neuts (auto) 7.8 H Absolute Nucleated RBC 0.000 Nucleated RBC % 0.0 PT 13.6 INR 1.0 APTT 34.2 Sodium 130 L Potassium 3.7 Chloride 99 Carbon Dioxide 21 L Anion Gap 10 BUN 32 H Creatinine 2.60 H Estim Creat Clear Calc 20 Estimated GFR 24 L Glucose 173 H POC Capillary Glucose 176 H 133 H Hemoglobin A1c Lactic Acid 1.0 Calcium 8.2 L Magnesium Total Bilirubin 0.5 AST 22 ALT 16 Alkaline Phosphatase 105 Troponin I 0.031 NT-Pro-B Natriuret Pep 5390 H Total Protein 6.0 L Albumin 3.3 L Lipase 134 Urine Color Urine Appearance Urine pH Ur Specific [place] Urine Protein Urine Glucose (UA) Urine Ketones Ur Blood (Man) Urine Nitrate Urine Bilirubin Urine Urobilinogen Add Ur Microanalysis Leukocyte Esterase Rfl Urine RBC Urine WBC Ur Squamous Epith Cells Urine Bacteria Urine Casts Hyaline Casts Nasal MRSA (PCR) Influenza A (RT-PCR) Negative Influenza B (RT-PCR) Negative RSV (RT-PCR) Negative SARS-CoV-2 RNA (RT-PCR) Negative 08/30/24 08/30/24 08/30/24 00:32 00:50 06:26 WBC 10.9 H RBC 3.78 L Hgb 10.0 L Hct 32.9 L MCV 87.0 MCH 26.5 MCHC 30.4 L RDW 14.4 Plt Count 345 MPV 9.5 Immature Gran % (Auto) 0.6 H Neut % (Auto) 74.9 H Lymph % (Auto) 9.9 L Charles % (Auto) 11.6 H Eos % (Auto) 2.7 Baso % (Auto) 0.3 Lymph # (Auto) 1.08 Charles # (Auto) 1.3 H Eos # (Auto) 0.3 Baso # (Auto) 0.0 Abs Immat Gran (auto) 0.07 H Absolute Neuts (auto) 8.1 H Absolute Nucleated RBC 0.000 Nucleated RBC % 0.0 PT INR APTT Sodium 132 L Potassium 3.1 L Chloride 101 Carbon Dioxide 23 Anion Gap 8 BUN 31 H Creatinine 2.56 H Estim Creat Clear Calc 21 Estimated GFR 24 L Glucose 134 H POC Capillary Glucose Hemoglobin A1c Lactic Acid Calcium 8.0 L Magnesium 1.3 L Total Bilirubin 0.6 AST 27 ALT 15 Alkaline Phosphatase 95 Troponin I NT-Pro-B Natriuret Pep Total Protein 6.0 L Albumin 3.0 L Lipase Urine Color Yellow Urine Appearance Clear Urine pH 5.5 Ur Specific [place] 1.012 Urine Protein 1+ H Urine Glucose (UA) Negative Urine Ketones Negative Ur Blood (Man) Negative Urine Nitrate Negative Urine Bilirubin Negative Urine Urobilinogen 0.2 Add Ur Microanalysis Reviewed Leukocyte Esterase Rfl Negative Urine RBC 0-2 Urine WBC 0-5 Ur Squamous Epith Cells None seen Urine Bacteria None seen Urine Casts 6-10 Hyaline Casts Present Nasal MRSA (PCR) Not detected Influenza A (RT-PCR) Influenza B (RT-PCR) RSV (RT-PCR) SARS-CoV-2 RNA (RT-PCR) 08/30/24 08/30/24 08/30/24 07:58 11:40 14:09 WBC RBC Hgb Hct MCV MCH MCHC RDW Plt Count MPV Immature Gran % (Auto) Neut % (Auto) Lymph % (Auto) Charles % (Auto) Eos % (Auto) Baso % (Auto) Lymph # (Auto) Charles # (Auto) Eos # (Auto) Baso # (Auto) Abs Immat Gran (auto) Absolute Neuts (auto) Absolute Nucleated RBC Nucleated RBC % PT INR APTT Sodium Potassium Chloride Carbon Dioxide Anion Gap BUN Creatinine Estim Creat Clear Calc Estimated GFR Glucose POC Capillary Glucose 138 H 131 H Hemoglobin A1c 7.6 H Lactic Acid Calcium Magnesium Total Bilirubin AST ALT Alkaline Phosphatase Troponin I NT-Pro-B Natriuret Pep Total Protein Albumin Lipase Urine Color Urine Appearance Urine pH Ur Specific [place] Urine Protein Urine Glucose (UA) Urine Ketones Ur Blood (Man) Urine Nitrate Urine Bilirubin Urine Urobilinogen Add Ur Microanalysis Leukocyte Esterase Rfl Urine RBC Urine WBC Ur Squamous Epith Cells Urine Bacteria Urine Casts Hyaline Casts Nasal MRSA (PCR) Influenza A (RT-PCR) Influenza B (RT-PCR) RSV (RT-PCR) SARS-CoV-2 RNA (RT-PCR) Quality VTE Prophylaxis VTE prophylaxis: mechanical ordered -Patient's previous records reviewed on admission -ER notes reviewed in detail on admission -discussed all findings and current treatment plan with patient/Family/POA -Consultations reviewed for recommendations -Patient's disposition for safe discharge discussed with social work case manager Dictation performed by [employer] direct speech recognition software, therefore coating manager variants and typographical errors may occur. Hospitalist MIPS Advance Care Plan I have confirmed that the patient's Advanced Care Plan is present, code status is documented, or surrogate decision maker is listed in patient medical record.: Yes Medication Reconciliation I have utilized all available resources to obtain, update and review the patients current medications (includes all prescriptions, OTC, herbals, cannabis, and nutritional supplements).: Yes The patient is not eligible for med reconciliation; the patient is in a emergent medical situation where delaying treatment would jeopardize the patients health.: No
[2024-08-30 14:00] VITALS: BP 108/67; PULSE 107; RESP 18; TEMP 36.9; O2SAT 93
[2024-08-30] MEDS: POTASSIUM CHLORIDE INJ 40 MEQ in SODIUM CHLORIDE 0.9% IV 500 ML 130 MEQ IVPB (14:48)
--- NOTE | 2024-08-30 16:08 | PCSTNOTE ---
Please refer to the Modified Barium Swallow (MBS) Evaluation in the EMR. The above pt admitted due to recurrent SOB and excessive coughing with concerns noted for possible aspiration pneumonia was seen perviously for a bedside swallow evaluation which revealed swallow initiation mildly delayed across consistencies. Vocal quality at rest and after swallows is breathy. Coughing was not noted initially following each trial but at the completion of the bedside swallow the patient was observed to have notable coughing episodes. Pt was therefore seen for further testing via an MBS. The pt was seated for a lateral view, (coughing before trials) and was presented with 5 ml thin liquids via a spoon, pudding consistency barium via a spoon, crackers coated with barium pudding via a spoon, and thin liquids in uncontrolled amounts via a cup and a straw. The oral stages were within functional limits. No pocketing, residual, or leakage was exhibited. The pharyngeal stage was within normal limits as no laryngeal penetration, aspiration or residual was exhibited. Esophageal stage was WNL. Impression: Normal swallow Recommendations: Level 7 regular diet and regular thin liquids level 0. No further ST is warranted. Thank you for this referral.
[2024-08-30 16:57] LABS: Glucose Point of Care 124 mg/dl (65-105)
[2024-08-30 20:12] VITALS: PULSE 98
[2024-08-30] MEDS: carvediloL 12.5 MG TABLET PO (20:12)
[2024-08-30] MEDS: guaiFENesin 12 HR 600 MG TABCR PO (20:14)
[2024-08-30] MEDS: PRAVASTATIN SODIUM 20 MG TABLET PO (20:14)
[2024-08-30 20:26] VITALS: PULSE 111; RESP 20; O2SAT 94
[2024-08-30 22:00] VITALS: BP 96/46; PULSE 98; RESP 18; TEMP 37.6; O2SAT 92
[2024-08-30 23:55] LABS: Glucose Point of Care 154 mg/dl (65-105)
[2024-08-31] MEDS: PIPERACILLIN/TAZ 2.25G/NS 50ML 2.25 GM/50 ML BAG IVPB ×2 (00:33→05:39)
[2024-08-31] MEDS: ALBUTEROL SULFATE (*SP) AEROSOL 1 PUFF 2 PUFF INHALATION ×2 (00:37→16:52)
[2024-08-31 00:40] VITALS: PULSE 98; RESP 20
[2024-08-31 02:49] LABS: Toxigenic C. Diff NEGATIVE (NEGATIVE)
[2024-08-31 05:22] LABS: Basophils Percent Auto 0.4 % (0.2-1.2); Eosinophils Absolute Auto 0.3 K/mm3 (0-0.3); Eosinophils Percent Auto 3.1 % (0-4.4); Hematocrit 32.9 % (42.0-52.0); Hemoglobin 9.7 g/dL (14.0-18.0); Immature Granulocyte Absolute 0.08 K/mm3 (0.00-0.031); Immature Granulocyte Percent A 0.9 % (0-0.5); Lymphocytes Absolute Auto 1.32 K/mm3 (0.9-3.2); Lymphocytes Percent Auto 14.4 % (18.3-44.2); Mean Corpuscular HGB Conc 29.5 g/dl (32-36); Mean Corpuscular Hemoglobin 26.1 pg (26-34); Mean Corpuscular Volume 88.4 fl (80-100); Mean Platelet Volume 9.5 fl (7.4-10.4); Monocytes Absolute Auto 1.2 K/mm3 (0.1-0.6); Monocytes Percent Auto 13.3 % (2.6-8.5); Neutrophils Absolute Auto 6.2 K/mm3 (1.3-6.7); Neutrophils Percent Auto 67.9 % (45.5-73.1); Platelet Count Result 351 k/mm3 (150-375); Red Blood Count 3.72 M/mm3 (4.6-6.20); Red Cell Distribution Width 14.5 % (11.5-14.5); White Blood Count 9.2 K/mm3 (4.5-10.0)
[2024-08-31 05:35] LABS: Alanine Aminotransferase 19 U/L (6-50); Albumin Level 2.9 g/dL (3.5-5.1); Alkaline Phosphatase 94 U/L (38-126); Anion Gap 7 mmol/L (4-12); Aspartate Amino Transferase 33 U/L (17-59); Bilirubin,Total 0.5 mg/dL (0.2-1.3); Blood Urea Nitrogen 34 mg/dL (9-20); Calcium 7.7 mg/dL (8.4-10.2); Carbon Dioxide 24 mmol/L (22-30); Chloride 102 mmol/L (98-107); Estimated CRCL calculation 16 ml/min; Estimated Glomerular Filt Rate 18; Glucose 163 mg/dL (65-110); Magnesium 1.4 mg/dL (1.6-2.3); Potassium 3.5 mmol/L (3.4-5.0); Sodium 133 mmol/L (137-145)
[2024-08-31 06:00] VITALS: BP 90/43; PULSE 66; RESP 18; TEMP 37.6; O2SAT 92
--- NOTE | 2024-08-31 07:28 | P.PNIM_ITS ---
Progress Note: A&P Assessment and Plan (1) Aspiration pneumonia: Qualifiers: Aspiration pneumonia type: unspecified Laterality: unspecified laterality Lung location: unspecified part of lung Qualified Code(s): J69.0 - Pneumonitis due to inhalation of food and vomit Code(s): J69.0 - Pneumonitis due to inhalation of food and vomit Status: Acute Assessment and Plan: Nausea/vomiting for several days, initially improved with Zofran, Cough, short ness of breath increased since vomiting started. CT scan shows findings consistent with chronic bronchitis and aspiration. Patient passed barium swallow * Transition to oral Augmentin * continue Guaifenesin for cough * Level 7 diet regular with thin liquids * supplemental oxygen PRN maintain 92% (2) Acute on chronic renal failure: Code(s): N17.9 - Acute kidney failure, unspecified; N18.9 - Chronic kidney disease, unspecified Status: Acute Assessment and Plan: History of CKD, stage 3b-4, Currently increased BUN/Cr compared to prior result, Likely mild dehydration from nausea/vomiting as well as multiple episodes of diarrhea though increasing renal dysfunction * Cr bumped to 3.25 today * started IV fluids poor oral intake * Patient follows with fixed route operator Sukhjinder with Dr. Lin Guerrero * will consult Nephrology if renal function worsens * Avoid nephrotoxins if possible * Routine CMP monitoring GFR. * Monitor electrolytes especially potassium. * Antibiotic doses depending on creatinine clearance. (3) Type 2 diabetes mellitus: Code(s): E11.9 - Type 2 diabetes mellitus without complications Status: Chronic Assessment and Plan: * ACCUcheck ACHS * SSI * currently holding Jadiance due to NPO status * Will hold off on resuming Lantus since NPO at this time (4) Paroxysmal atrial fibrillation: Code(s): I48.0 - Paroxysmal atrial fibrillation Status: Acute Assessment and Plan: Rate controlled * Not currently anticoagulated, need to inquire with family about this (5) Hypertension: Code(s): I10 - Essential (primary) hypertension Status: Chronic Assessment and Plan: * Continue Coreg * BP per unit protocol (6) Adult failure to thrive: Code(s): R62.7 - Adult failure to thrive Status: Acute Assessment and Plan: Patient mildly confused, possible aspiration pneumonia, worsening renal dysfunction 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 Care coordination has been consulted for possible placement needs. Likely return to [facility] for SNF Time Spent With Patient Time with patient: 15 - 25 minutes Subjective Date/time seen: 08/31/24 07:28 Interval history: Patient is a 83 year old male who is admitted for treatment of aspiration pneumonia 08/31/2024: Patient up in chair eating breakfast feels better today cough improving and not as SOB. He did pass his swallow eval and is tolerating his diet. BP soft and renal function bumped will hold coreg and and given IV fluids. Patient with no other complaints. Review of Systems Review of Systems: All systems reviewed & are unremarkable except as noted in HPI and below Exam Narrative: GENERAL: Well nourished, appears fatigued, cough but no respiratory distress HEAD: Normocephalic, atraumatic. ENT:? Mucous membranes moist. HEART: RRR Respiratory: productive cough, mild scattered wheezing ABDOMEN: Soft, nontender, nondistended. EXTREMITIES: Normal range of motion. No peripheral edema. SKIN: Warm dry normal color NEURO: Awake, alert, mildly confused but pleasant PSYCH: Normal affect Objective Data Vital Signs Vital Signs: Vital Signs - 24 hr 08/30/24 08:47 08/30/24 09:15 08/30/24 09:15 Temperature Pulse Rate 94 94 Respiratory Rate 22 H 22 H Blood Pressure Pulse Oximetry 95 Oxygen Delivery Room Air Room Air Fraction of Inspired Oxygen 08/30/24 14:00 08/30/24 15:37 08/30/24 20:12 Temperature 98.4 F Pulse Rate 107 H 98 Respiratory Rate 18 Blood Pressure 108/67 Pulse Oximetry 93 Oxygen Delivery Room Air Fraction of Inspired Oxygen 08/30/24 20:26 08/30/24 22:00 08/31/24 00:40 Temperature 99.7 F H Pulse Rate 111 H 98 98 Respiratory Rate 20 18 20 Blood Pressure 96/46 L Pulse Oximetry 94 92 Oxygen Delivery Room Air Fraction of Inspired Oxygen 08/31/24 06:00 Temperature 99.6 F Pulse Rate 66 Respiratory Rate 18 Blood Pressure 90/43 L Pulse Oximetry 92 Oxygen Delivery Fraction of Inspired Oxygen Intake/Output Intake/Output: Intake & Output 08/28/24 08/29/24 08/30/24 08/31/24 23:59 23:59 23:59 23:59 Intake Total 50 1150 100 Output Total 36 200 Balance 14 950 100 Meds/Results Medications: Active Medications Generic Name Dose Route Start Last Admin Trade Name Freq PRN Reason Stop Dose Admin Albuterol 2 puff 08/29/24 23:55 08/31/24 00:37 Albuterol Sulfate (*Sp) Aerosol 1 Puff INHALATION 2 puff Q6HRT PRN Administration shortness of breath or wheezing Carvedilol 12.5 mg 08/30/24 09:00 08/30/24 20:12 Carvedilol 12.5 Mg Tablet PO 12.5 mg Q12HR PJ Administration Dextrose 12.5 gm 08/29/24 23:58 Dextrose 50% 25 Gm/50 Ml Syringe IV PUSH PRN PRN Hypoglycemia Protocol Dorzolamide/Timolol 1 drop 08/30/24 09:00 08/30/24 20:14 Dorzolamide/Timolol Ophth Sarah 10 Ml Bottle EACH EYE 1 drop Q12HR PJ Administration Glucagon 1 mg 08/29/24 23:58 Glucagon For Inj 1 Mg Vial IM PRN PRN Hypoglycemia Protocol Glucose 15 gm 08/29/24 23:58 Glucose Oral Gel 15 Gm Of Glucse In 37.5 Gm Tube PO PRN PRN Hypoglycemia Protocol Guaifenesin 600 mg 08/30/24 09:00 08/30/24 20:14 Guaifenesin 12 Hr 600 Mg Tabcr PO 600 mg Q12HR PJ Administration Piperacillin Sod/Tazobactam Sod 2.25 gm in 50 mls @ 100 mls/hr 08/30/24 05:00 08/31/24 06:26 Zosyn 2.25 Gm/Ns 50 Ml IVPB Infused Q6HR PJ Infusion Dextrose 1,000 mls @ 100 mls/hr 08/29/24 23:58 Dextrose 5% 1,000 Ml IVPB PRN PRN Hypoglycemia Protocol Magnesium Sulfate 2 gm in 50 mls @ 25 mls/hr 08/31/24 07:25 Magnesium Sulf 2 Gm/Water 50ml IVPB 08/31/24 09:24 ONCE ONE Sodium Chloride 1,000 mls @ 100 mls/hr 08/31/24 07:30 Normal Saline Iv IV CONT .Q10H PJ Ondansetron HCl 4 mg 08/29/24 19:39 Ondansetron Inj 4 Mg/2 Ml Vial IV PUSH Q4H PRN Nausea Pantoprazole Sodium 40 mg 08/30/24 09:00 08/30/24 10:44 Pantoprazole 40 Mg Tablet PO Not Given DAILY PJ Perflutren Lipid Microsphere 0 ml 08/30/24 00:01 Perflutren Lipid Microspheres 1.5 Ml Vial Diluted To 10 Ml Total Volume IV PUSH 09/02/24 00:02 ONCE PRN adequate visualization Protocol Potassium Chloride 40 meq 08/31/24 07:25 Potassium Chloride 20 Meq Packet (For Liquid) PO 08/31/24 07:26 ONCE ONE Pravastatin Sodium 20 mg 08/30/24 21:00 08/30/24 20:14 Pravastatin Sodium 20 Mg Tablet PO 20 mg HS PJ Administration Sitagliptin Phosphate 25 mg 08/30/24 09:00 08/30/24 10:44 Sitagliptin Phosphate 25 Mg Tablet PO Not Given DAILY PJ Radiology Results: ITS Impressions Chest X-Ray 08/29/24 15:02 IMPRESSION: Right basilar atelectasis versus pneumonia. Chest CT 08/29/24 19:06 IMPRESSION: Mild chronic bronchial wall thickening may reflect a component of bronchitis. Consider aspiration in the differential. Mild chronic interstitial lung disease in a UIP pattern, with a patulous esophagus, correlate for history of scleroderma. Ascending thoracic aortic ectasia. Modified Barium Swallow 08/30/24 15:03 IMPRESSION: Patient tolerated regular consistency oral feedings in the upright position. Please correlate with speech pathologist findings and specific feeding recommendations. Labs Labs: Laboratory Results - last 24 hr 08/30/24 08/30/24 08/30/24 01:30 07:58 11:40 WBC RBC Hgb Hct MCV MCH MCHC RDW Plt Count MPV Immature Gran % (Auto) Neut % (Auto) Lymph % (Auto) [place] % (Auto) Eos % (Auto) Baso % (Auto) Lymph # (Auto) [place] # (Auto) Eos # (Auto) Baso # (Auto) Abs Immat Gran (auto) Absolute Neuts (auto) Absolute Nucleated RBC Nucleated RBC % Sodium Potassium Chloride Carbon Dioxide Anion Gap BUN Creatinine Estim Creat Clear Calc Estimated GFR Glucose POC Capillary Glucose 138 H 131 H Calcium Magnesium Total Bilirubin AST ALT Alkaline Phosphatase Total Protein Albumin C. difficile (PCR) Negative 08/30/24 08/30/24 08/31/24 16:53 20:17 05:07 WBC 9.2 RBC 3.72 L Hgb 9.7 L Hct 32.9 L MCV 88.4 MCH 26.1 MCHC 29.5 L RDW 14.5 Plt Count 351 MPV 9.5 Immature Gran % (Auto) 0.9 H Neut % (Auto) 67.9 Lymph % (Auto) 14.4 L [place] % (Auto) 13.3 H Eos % (Auto) 3.1 Baso % (Auto) 0.4 Lymph # (Auto) 1.32 [place] # (Auto) 1.2 H Eos # (Auto) 0.3 Baso # (Auto) 0.0 Abs Immat Gran (auto) 0.08 H Absolute Neuts (auto) 6.2 Absolute Nucleated RBC 0.000 Nucleated RBC % 0.0 Sodium 133 L Potassium 3.5 Chloride 102 Carbon Dioxide 24 Anion Gap 7 BUN 34 H Creatinine 3.26 H Estim Creat Clear Calc 16 Estimated GFR 18 L Glucose 163 H POC Capillary Glucose 124 H 154 H Calcium 7.7 L Magnesium 1.4 L Total Bilirubin 0.5 AST 33 ALT 19 Alkaline Phosphatase 94 Total Protein 6.0 L Albumin 2.9 L C. difficile (PCR) Quality VTE Prophylaxis VTE prophylaxis: mechanical ordered -Patient's previous records reviewed on admission -ER notes reviewed in detail on admission -discussed all findings and current treatment plan with patient/Family/POA -Consultations reviewed for recommendations -Patient's disposition for safe discharge discussed with lining caser Dictation performed by [employer] direct speech recognition software, therefore grievance manager variants and typographical errors may occur. Hospitalist MIPS Advance Care Plan I have confirmed that the patient's Advanced Care Plan is present, code status is documented, or surrogate decision maker is listed in patient medical record.: Yes Medication Reconciliation I have utilized all available resources to obtain, update and review the patients current medications (includes all prescriptions, OTC, herbals, cannabis, and nutritional supplements).: Yes The patient is not eligible for med reconciliation; the patient is in a emergent medical situation where delaying treatment would jeopardize the patients health.: No
[2024-08-31 07:55] LABS: Glucose Point of Care 134 mg/dl (65-105)
[2024-08-31] MEDS: POTASSIUM CHLORIDE 20 MEQ PACKET (FOR LIQUID) 40 MEQ PO (08:24)
[2024-08-31] MEDS: MAGNESIUM SULF 2 GM/WATER 50ML 2 GM/50 ML BAG IVPB (08:24)
[2024-08-31] MEDS: guaiFENesin 12 HR 600 MG TABCR PO ×2 (08:25→20:51)
[2024-08-31] MEDS: SODIUM CHLORIDE 0.9% IV 1,000 ML 100 ML IV CONT ×2 (08:25→19:18)
[2024-08-31] MEDS: DORZOLAMIDE/TIMOLOL OPHTH SOL 10 ML BOTTLE 1 DROP EACH EYE ×2 (08:25→20:52)
[2024-08-31] MEDS: PANTOPRAZOLE 40 MG TABLET PO (08:25)
[2024-08-31] MEDS: SITagliptin PHOSPHATE 25 MG TABLET PO (08:25)
[2024-08-31] MEDS: AMOXICILLIN/CLAVULANATE K 875-125 MG TAB 1 TABLET PO ×2 (08:25→20:51)
--- NOTE | 2024-08-31 11:28 | PCPTNOTE ---
Attempted to see patient for PT, however patient refused due to not feeling well. Patient reported he felt warm and that his stomach is upset. RN notified
[2024-08-31 11:30] LABS: Glucose Point of Care 190 mg/dl (65-105)
--- NOTE | 2024-08-31 13:10 | PCPTNOTE ---
Attempted to see patient for PT, however patient refused due to not feeling well. Patient reported he felt short of breath and not well. RN aware.
[2024-08-31 13:42] VITALS: BP 134/53; PULSE 98; RESP 16; TEMP 37.4; O2SAT 95
[2024-08-31 17:00] LABS: Glucose Point of Care 229 mg/dl (65-105)
[2024-08-31 20:32] LABS: Glucose Point of Care 214 mg/dl (65-105)
[2024-08-31] MEDS: PRAVASTATIN SODIUM 20 MG TABLET PO (20:51)
[2024-08-31 21:01] VITALS: BP 116/56; PULSE 85; RESP 20; TEMP 36.9; O2SAT 93
[2024-09-01] VITALS (11 sets, daily range): BP systolic 102–131; BP diastolic 54–75; PULSE 68–99; RESP 16–20; TEMP 36.5–38.6; O2SAT 91–96
[2024-09-01] MEDS: ACETAMINOPHEN 325 MG TABLET 650 MG PO ×2 (04:58→21:26)
[2024-09-01] MEDS: SODIUM CHLORIDE 0.9% IV 1,000 ML 100 ML IV CONT ×3 (05:01→21:29)
[2024-09-01 05:14] LABS: Basophils Percent Auto 0.4 % (0.2-1.2); Eosinophils Absolute Auto 0.4 K/mm3 (0-0.3); Hematocrit 31.7 % (42.0-52.0); Hemoglobin 9.5 g/dL (14.0-18.0); Immature Granulocyte Absolute 0.08 K/mm3 (0.00-0.031); Immature Granulocyte Percent A 0.8 % (0-0.5); Lymphocytes Absolute Auto 1.32 K/mm3 (0.9-3.2); Lymphocytes Percent Auto 13.1 % (18.3-44.2); Mean Corpuscular Hemoglobin 26.2 pg (26-34); Mean Corpuscular Volume 87.6 fl (80-100); Mean Platelet Volume 9.8 fl (7.4-10.4); Monocytes Absolute Auto 1.1 K/mm3 (0.1-0.6); Monocytes Percent Auto 10.5 % (2.6-8.5); Neutrophils Absolute Auto 7.2 K/mm3 (1.3-6.7); Neutrophils Percent Auto 71.2 % (45.5-73.1); Platelet Count Result 353 k/mm3 (150-375); Red Blood Count 3.62 M/mm3 (4.6-6.20); Red Cell Distribution Width 14.8 % (11.5-14.5); White Blood Count 10.1 K/mm3 (4.5-10.0)
[2024-09-01 05:27] LABS: Alanine Aminotransferase 20 U/L (6-50); Albumin Level 2.7 g/dL (3.5-5.1); Alkaline Phosphatase 97 U/L (38-126); Anion Gap 9 mmol/L (4-12); Aspartate Amino Transferase 38 U/L (17-59); Bilirubin,Total 0.3 mg/dL (0.2-1.3); Blood Urea Nitrogen 36 mg/dL (9-20); Calcium 7.3 mg/dL (8.4-10.2); Carbon Dioxide 20 mmol/L (22-30); Chloride 104 mmol/L (98-107); Estimated CRCL calculation 19 ml/min; Estimated Glomerular Filt Rate 21; Glucose 163 mg/dL (65-110); Magnesium 1.8 mg/dL (1.6-2.3); Potassium 3.6 mmol/L (3.4-5.0); Sodium 133 mmol/L (137-145)
--- NOTE | 2024-09-01 07:41 | P.PNIM_ITS ---
Progress Note: A&P Assessment and Plan (1) Aspiration pneumonia: Qualifiers: Aspiration pneumonia type: unspecified Laterality: unspecified laterality Lung location: unspecified part of lung Qualified Code(s): J69.0 - Pneumonitis due to inhalation of food and vomit Code(s): J69.0 - Pneumonitis due to inhalation of food and vomit Status: Acute Assessment and Plan: Nausea/vomiting for several days, initially improved with Zofran, Cough, short ness of breath increased since vomiting started. CT scan shows findings consistent with chronic bronchitis and aspiration. Patient passed barium swallow * Transition to oral Augmentin * continue Guaifenesin for cough * Level 7 diet regular with thin liquids * supplemental oxygen PRN maintain 92% (2) Acute on chronic renal failure: Code(s): N17.9 - Acute kidney failure, unspecified; N18.9 - Chronic kidney disease, unspecified Status: Acute Assessment and Plan: History of CKD, stage 3b-4, Currently increased BUN/Cr compared to prior result, Likely mild dehydration from nausea/vomiting as well as multiple episodes of diarrhea though increasing renal dysfunction patient dehydrated Cr bumped to 3.25 improved IV fluids close to baseline * continue IV fluids * Patient follows with nail mill worker Sukhjinder with Dr. Lin Guerrero * will consult Nephrology if renal function worsens * Avoid nephrotoxins if possible * Routine CMP monitoring GFR. * Monitor electrolytes especially potassium. * Antibiotic doses depending on creatinine clearance. (3) Type 2 diabetes mellitus: Code(s): E11.9 - Type 2 diabetes mellitus without complications Status: Chronic Assessment and Plan: * ACCUcheck ACHS * SSI * currently holding Jadiance due to NPO status * Will hold off on resuming Lantus since NPO at this time (4) Paroxysmal atrial fibrillation: Code(s): I48.0 - Paroxysmal atrial fibrillation Status: Acute Assessment and Plan: Rate controlled * Not currently anticoagulated, need to inquire with family about this (5) Hypertension: Code(s): I10 - Essential (primary) hypertension Status: Chronic Assessment and Plan: * BP soft decreased coreg from 12.5 to 6.25 BID * BP per unit protocol (6) Adult failure to thrive: Code(s): R62.7 - Adult failure to thrive Status: Acute Assessment and Plan: Patient mildly confused, possible aspiration pneumonia, worsening renal dysfunction 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 waiting on Auth for placement to SNF Time Spent With Patient Time with patient: 15 - 25 minutes Subjective Date/time seen: 09/01/24 07:41 Interval history: Patient is a 83 year old male who is admitted for treatment of aspiration pneumonia 09/01/2024: Patient feeling better today but still reporting difficulty with ambulation. Cough has improved and patient denied CP, SOB. Patient with no complaints other then weakness. Review of Systems Review of Systems: All systems reviewed & are unremarkable except as noted in HPI and below Exam Narrative: GENERAL: Well nourished, appears fatigued, cough but no respiratory distress HEAD: Normocephalic, atraumatic. ENT:? Mucous membranes moist. HEART: RRR Respiratory: productive cough, mild scattered wheezing ABDOMEN: Soft, nontender, nondistended. EXTREMITIES: Normal range of motion. No peripheral edema. SKIN: Warm dry normal color NEURO: Awake, alert, mildly confused but pleasant PSYCH: Normal affect Objective Data Vital Signs Vital Signs: Vital Signs - 24 hr 08/31/24 08:50 08/31/24 13:42 08/31/24 20:00 Temperature 99.3 F Pulse Rate 98 Respiratory Rate 16 Blood Pressure 134/53 L Pulse Oximetry 95 Oxygen Delivery Room Air Room Air Fraction of Inspired Oxygen 08/31/24 21:01 09/01/24 04:30 09/01/24 04:58 Temperature 98.5 F 101.5 F H 101.5 F H Pulse Rate 85 99 Respiratory Rate 20 20 Blood Pressure 116/56 L 102/54 L Pulse Oximetry 93 91 Oxygen Delivery Fraction of Inspired Oxygen 09/01/24 05:48 Temperature 98.7 F Pulse Rate Respiratory Rate Blood Pressure Pulse Oximetry Oxygen Delivery Fraction of Inspired Oxygen Intake/Output Intake/Output: Intake & Output 08/29/24 08/30/24 08/31/24 09/01/24 23:59 23:59 23:59 23:59 Intake Total 50 1150 2060 1221.7 Output Total 36 200 Balance 14 950 2060 1221.7 Meds/Results Medications: Active Medications Generic Name Dose Route Start Last Admin Trade Name Freq PRN Reason Stop Dose Admin Acetaminophen 650 mg 09/01/24 04:45 09/01/24 04:58 Acetaminophen 325 Mg Tablet PO 650 mg Q4H PRN Administration Fever OR PAIN Albuterol 2 puff 08/29/24 23:55 08/31/24 16:52 Albuterol Sulfate (*Sp) Aerosol 1 Puff INHALATION 2 puff Q6HRT PRN Administration shortness of breath or wheezing Amoxicillin/Clavulanate Potassium 1 tablet 08/31/24 09:00 08/31/24 20:51 Amoxicillin/Clavulanate K 875-125 Mg Tab PO 1 tablet Q12HR PJ Administration Carvedilol 12.5 mg 08/30/24 09:00 08/30/24 20:12 Carvedilol 12.5 Mg Tablet PO 12.5 mg Q12HR PJ Administration Dextrose 12.5 gm 08/29/24 23:58 Dextrose 50% 25 Gm/50 Ml Syringe IV PUSH PRN PRN Hypoglycemia Protocol Dorzolamide/Timolol 1 drop 08/30/24 09:00 08/31/24 20:52 Dorzolamide/Timolol Ophth Sarah 10 Ml Bottle EACH EYE 1 drop Q12HR PJ Administration Glucagon 1 mg 08/29/24 23:58 Glucagon For Inj 1 Mg Vial IM PRN PRN Hypoglycemia Protocol Glucose 15 gm 08/29/24 23:58 Glucose Oral Gel 15 Gm Of Glucse In 37.5 Gm Tube PO PRN PRN Hypoglycemia Protocol Guaifenesin 600 mg 08/30/24 09:00 08/31/24 20:51 Guaifenesin 12 Hr 600 Mg Tabcr PO 600 mg Q12HR PJ Administration Dextrose 1,000 mls @ 100 mls/hr 08/29/24 23:58 Dextrose 5% 1,000 Ml IVPB PRN PRN Hypoglycemia Protocol Sodium Chloride 1,000 mls @ 100 mls/hr 08/31/24 07:30 09/01/24 05:01 Normal Saline Iv IV CONT 100 mls/hr .Q10H PJ Administration Ondansetron HCl 4 mg 08/29/24 19:39 Ondansetron Inj 4 Mg/2 Ml Vial IV PUSH Q4H PRN Nausea Pantoprazole Sodium 40 mg 08/30/24 09:00 08/31/24 08:25 Pantoprazole 40 Mg Tablet PO 40 mg DAILY PJ Administration Perflutren Lipid Microsphere 0 ml 08/30/24 00:01 Perflutren Lipid Microspheres 1.5 Ml Vial Diluted To 10 Ml Total Volume IV PUSH 09/02/24 00:02 ONCE PRN adequate visualization Protocol Pravastatin Sodium 20 mg 08/30/24 21:00 08/31/24 20:51 Pravastatin Sodium 20 Mg Tablet PO 20 mg HS PJ Administration Sitagliptin Phosphate 25 mg 08/30/24 09:00 08/31/24 08:25 Sitagliptin Phosphate 25 Mg Tablet PO 25 mg DAILY PJ Administration Radiology Results: ITS Impressions Chest X-Ray 08/29/24 15:02 IMPRESSION: Right basilar atelectasis versus pneumonia. Chest CT 08/29/24 19:06 IMPRESSION: Mild chronic bronchial wall thickening may reflect a component of bronchitis. Consider aspiration in the differential. Mild chronic interstitial lung disease in a UIP pattern, with a patulous esophagus, correlate for history of scleroderma. Ascending thoracic aortic ectasia. Modified Barium Swallow 08/30/24 15:03 IMPRESSION: Patient tolerated regular consistency oral feedings in the upright position. Please correlate with speech pathologist findings and specific feeding recommendations. Labs Labs: Laboratory Results - last 24 hr 08/31/24 08/31/24 08/31/24 07:53 11:26 16:57 WBC RBC Hgb Hct MCV MCH MCHC RDW Plt Count MPV Immature Gran % (Auto) Neut % (Auto) Lymph % (Auto) [place] % (Auto) Eos % (Auto) Baso % (Auto) Lymph # (Auto) [place] # (Auto) Eos # (Auto) Baso # (Auto) Abs Immat Gran (auto) Absolute Neuts (auto) Absolute Nucleated RBC Nucleated RBC % Sodium Potassium Chloride Carbon Dioxide Anion Gap BUN Creatinine Estim Creat Clear Calc Estimated GFR Glucose POC Capillary Glucose 134 H 190 H 229 H Calcium Magnesium Total Bilirubin AST ALT Alkaline Phosphatase Total Protein Albumin 08/31/24 09/01/24 20:07 04:22 WBC 10.1 H RBC 3.62 L Hgb 9.5 L Hct 31.7 L MCV 87.6 MCH 26.2 MCHC 30.0 L RDW 14.8 H Plt Count 353 MPV 9.8 Immature Gran % (Auto) 0.8 H Neut % (Auto) 71.2 Lymph % (Auto) 13.1 L [place] % (Auto) 10.5 H Eos % (Auto) 4.0 Baso % (Auto) 0.4 Lymph # (Auto) 1.32 [place] # (Auto) 1.1 H Eos # (Auto) 0.4 H Baso # (Auto) 0.0 Abs Immat Gran (auto) 0.08 H Absolute Neuts (auto) 7.2 H Absolute Nucleated RBC 0.000 Nucleated RBC % 0.0 Sodium 133 L Potassium 3.6 Chloride 104 Carbon Dioxide 20 L Anion Gap 9 BUN 36 H Creatinine 2.85 H Estim Creat Clear Calc 19 Estimated GFR 21 L Glucose 163 H POC Capillary Glucose 214 H Calcium 7.3 L Magnesium 1.8 Total Bilirubin 0.3 AST 38 ALT 20 Alkaline Phosphatase 97 Total Protein 5.0 L Albumin 2.7 L Quality VTE Prophylaxis VTE prophylaxis: mechanical ordered -Patient's previous records reviewed on admission -ER notes reviewed in detail on admission -discussed all findings and current treatment plan with patient/Family/POA -Consultations reviewed for recommendations -Patient's disposition for safe discharge discussed with behavioral health case manager Dictation performed by [employer] direct speech recognition software, therefore filenet developer variants and typographical errors may occur. Hospitalist MIPS Advance Care Plan I have confirmed that the patient's Advanced Care Plan is present, code status is documented, or surrogate decision maker is listed in patient medical record.: Yes Medication Reconciliation I have utilized all available resources to obtain, update and review the patients current medications (includes all prescriptions, OTC, herbals, cannabis, and nutritional supplements).: Yes The patient is not eligible for med reconciliation; the patient is in a emergent medical situation where delaying treatment would jeopardize the patients health.: No
[2024-09-01 08:07] LABS: Glucose Point of Care 145 mg/dl (65-105)
[2024-09-01] MEDS: DORZOLAMIDE/TIMOLOL OPHTH SOL 10 ML BOTTLE 1 DROP EACH EYE ×2 (08:15→21:27)
[2024-09-01] MEDS: carvediloL 6.25 MG TABLET PO ×2 (08:16→21:27)
[2024-09-01] MEDS: PANTOPRAZOLE 40 MG TABLET PO (08:16)
[2024-09-01] MEDS: AMOXICILLIN/CLAVULANATE K 875-125 MG TAB 1 TABLET PO ×2 (08:16→21:27)
[2024-09-01] MEDS: guaiFENesin 12 HR 600 MG TABCR PO ×2 (08:16→21:28)
[2024-09-01] MEDS: POTASSIUM CHLORIDE 20 MEQ PACKET (FOR LIQUID) 40 MEQ PO (08:17)
[2024-09-01] MEDS: SITagliptin PHOSPHATE 25 MG TABLET PO (08:17)
[2024-09-01] MEDS: MAGNESIUM SULF 1 GM/D5W 100 ML 1 GM/100 ML BAG IVPB (08:24)
[2024-09-01] MEDS: LOPERAMIDE HCL 2 MG CAPSULE PO (10:19)
[2024-09-01 12:37] LABS: Glucose Point of Care 181 mg/dl (65-105)
[2024-09-01 17:11] LABS: Glucose Point of Care 161 mg/dl (65-105)
[2024-09-01 20:10] LABS: Glucose Point of Care 186 mg/dl (65-105)
[2024-09-01] MEDS: PRAVASTATIN SODIUM 20 MG TABLET PO (21:26)
[2024-09-01] MEDS: ALBUTEROL SULFATE (*SP) AEROSOL 1 PUFF 2 PUFF INHALATION (21:44)
[2024-09-01] MEDS: IPRATROPIUM 0.5 MG/ALBUTEROL SULFATE 2.5 MG AMPUL.NEB 3 ML INHALATION (22:00)
[2024-09-01 23:10] LABS: NT Pro B Type Natriuretic Pept 6320 pg/mL (19.9-100)
[2024-09-02] VITALS (17 sets, daily range): BP systolic 96–120; BP diastolic 37–54; PULSE 77–93; RESP 16–20; TEMP 36.8–37.1; O2SAT 91–99
[2024-09-02] MEDS: IPRATROPIUM 0.5 MG/ALBUTEROL SULFATE 2.5 MG AMPUL.NEB 3 ML INHALATION ×4 (02:08→20:06)
[2024-09-02 04:56] LABS: Hematocrit 31.1 % (42.0-52.0); Hemoglobin 9.3 g/dL (14.0-18.0); Mean Corpuscular HGB Conc 29.9 g/dl (32-36); Mean Corpuscular Hemoglobin 26.3 pg (26-34); Mean Corpuscular Volume 87.9 fl (80-100); Mean Platelet Volume 9.7 fl (7.4-10.4); Platelet Count Result 373 k/mm3 (150-375); Red Blood Count 3.54 M/mm3 (4.6-6.20); Red Cell Distribution Width 14.8 % (11.5-14.5)
[2024-09-02 05:12] LABS: Alanine Aminotransferase 21 U/L (6-50); Albumin Level 2.7 g/dL (3.5-5.1); Alkaline Phosphatase 109 U/L (38-126); Anion Gap 9 mmol/L (4-12); Aspartate Amino Transferase 40 U/L (17-59); Bilirubin,Total 0.4 mg/dL (0.2-1.3); Blood Urea Nitrogen 36 mg/dL (9-20); Calcium 7.6 mg/dL (8.4-10.2); Carbon Dioxide 17 mmol/L (22-30); Chloride 106 mmol/L (98-107); Estimated CRCL calculation 15 ml/min; Estimated Glomerular Filt Rate 16; Glucose 143 mg/dL (65-110); Magnesium 1.9 mg/dL (1.6-2.3); Potassium 4.4 mmol/L (3.4-5.0); Sodium 132 mmol/L (137-145)
[2024-09-02 05:31] LABS: Anisocytosis 1+; Band Neutrophils Percent 5 % (0-6); Eosinophils Absolute Manual 0.55 K/mm3 (0.02-0.50); Eosinophils Percent Manual 5 % (0-4); Large Platelets Present; Lymphocytes Absolute Manual 0.22 K/mm3 (1.1-4.5); Monocytes Absolute Manual 0.33 K/mm3 (0.1-0.90); Monocytes Percent Manual 3 % (3-9); Neutrophils Percent Manual 85 % (46-73); Platelet Clumps Present; Platelet Estimate Increased (Adequate); Schistocytes None Seen; Smudge Cells PRESENT; Total Cells Counted 100
--- NOTE | 2024-09-02 08:08 | P.PNIM_ITS ---
Progress Note: A&P Assessment and Plan (1) Chronic obstructive pulmonary disease: Code(s): J44.9 - Chronic obstructive pulmonary disease, unspecified Status: Acute Assessment and Plan: Patient with history of Chronic bronchitis started requiring 1 L supplemental oxygen to maintain 92% could be secondary to COPD had also been receiving fluids and fluid overload could be contributing factor * BNP >6000 * Echo reviewed * CXR no infiltrate or effusion * gave 1x dose 20mg lasix * started on PO prednisone for underlying COPD * Duonebs started * encourage incentive spirometer * Wean supplemental oxygen to maintain 92% * May need oxygen at discharge (2) Aspiration pneumonia: Qualifiers: Aspiration pneumonia type: unspecified Laterality: unspecified laterality Lung location: unspecified part of lung Qualified Code(s): J69.0 - Pneumonitis due to inhalation of food and vomit Code(s): J69.0 - Pneumonitis due to inhalation of food and vomit Status: Acute Assessment and Plan: Nausea/vomiting for several days, initially improved with Zofran, Cough, shortness of breath increased since vomiting started. CT scan shows findings consistent with chronic bronchitis and aspiration. Patient passed barium swallow * Transition to oral Augmentin * continue Guaifenesin for cough * Level 7 diet regular with thin liquids * supplemental oxygen PRN maintain 92% (3) Acute on chronic renal failure: Code(s): N17.9 - Acute kidney failure, unspecified; N18.9 - Chronic kidney disease, unspecified Status: Acute Assessment and Plan: History of CKD, stage 3b-4, Currently increased BUN/Cr compared to prior result, Likely mild dehydration from nausea/vomiting as well as multiple episodes of diarrhea though increasing renal dysfunction patient dehydrated Cr bumped to 3.25 improved IV fluids close to baseline but bumped back up to 3.66 once IV fluids placed on hold Likely close to patient new baseline nephrology to evaluate for any further recommendations * IV fluids on hold 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 Lni Guerrero * consulted Nephrology appreciate any further recommendations * Avoid nephrotoxins if possible * Routine CMP monitoring GFR. * Monitor electrolytes especially potassium. * Antibiotic doses depending on creatinine clearance. (4) Type 2 diabetes mellitus: Code(s): E11.9 - Type 2 diabetes mellitus without complications Status: Chronic Assessment and Plan: * ACCUcheck ACHS * SSI * currently holding Jadiance due to NPO status * Will hold off on resuming Lantus since NPO at this time (5) Paroxysmal atrial fibrillation: Code(s): I48.0 - Paroxysmal atrial fibrillation Status: Acute Assessment and Plan: Rate controlled * Not currently anticoagulated, need to inquire with family about this (6) Hypertension: Code(s): I10 - Essential (primary) hypertension Status: Chronic Assessment and Plan: * BP soft decreased coreg from 12.5 to 6.25 BID * BP per unit protocol (7) Adult failure to thrive: Code(s): R62.7 - Adult failure to thrive Status: Acute Assessment and Plan: Patient mildly confused, possible aspiration pneumonia, worsening renal dysfunction 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 Renal function worsened nephrology consulted waiting on Auth for placement to [facility] Time Spent With Patient Time with patient: 15 - 25 minutes Subjective Date/time seen: 09/02/24 08:08 Interval history: Patient is a 83 year old male who is admitted for treatment of aspiration pneumonia 09/02/2024: Patient resting in bed with no complaints but he did have desaturation overnight and there was concern for fluid overload, BNP >6000 CXR no infiltrate or effusion but was requiring 1L supplemental oxygen to maintain 92% patient with history of chronic bronchitis. Review of Systems Review of Systems: All systems reviewed & are unremarkable except as noted in HPI and below ROS unobtainable: Yes unobtainable due to mental status Exam Narrative: GENERAL: Well nourished, appears fatigued, cough but no respiratory distress HEAD: Normocephalic, atraumatic. ENT:? Mucous membranes moist. HEART: RRR Respiratory: productive cough, mild scattered wheezing ABDOMEN: Soft, nontender, nondistended. EXTREMITIES: Normal range of motion. No peripheral edema. SKIN: Warm dry normal color NEURO: Awake, alert, mildly confused but pleasant PSYCH: Normal affect Objective Data Vital Signs Vital Signs: Vital Signs - 24 hr 09/01/24 08:16 09/01/24 14:00 09/01/24 21:27 Temperature 97.7 F Pulse Rate 90 98 68 Respiratory Rate 19 Blood Pressure 112/60 Pulse Oximetry 93 Oxygen Delivery Oxygen Flow Rate Fraction of Inspired Oxygen 09/01/24 21:30 09/01/24 21:36 09/01/24 21:48 Temperature 98.7 F Pulse Rate 91 93 Respiratory Rate 16 20 Blood Pressure 131/75 Pulse Oximetry 95 96 Oxygen Delivery Nasal Cannula Oxygen Flow Rate 2 Fraction of Inspired Oxygen 09/01/24 22:04 09/01/24 22:13 09/02/24 02:00 Temperature Pulse Rate 84 90 Respiratory Rate 20 20 Blood Pressure Pulse Oximetry 94 Oxygen Delivery Nasal Cannula Oxygen Flow Rate 1 Fraction of Inspired Oxygen 09/02/24 02:09 09/02/24 02:17 09/02/24 05:09 Temperature 98.2 F Pulse Rate 85 81 93 Respiratory Rate 20 20 16 Blood Pressure 114/37 L Pulse Oximetry 93 Oxygen Delivery Oxygen Flow Rate Fraction of Inspired Oxygen Intake/Output Intake/Output: Intake & Output 08/30/24 08/31/24 09/01/24 09/02/24 23:59 23:59 23:59 23:59 Intake Total 1150 2060 3875.0 Output Total 200 Balance 950 2060 3875.0 Meds/Results Medications: Active Medications Generic Name Dose Route Start Last Admin Trade Name Freq PRN Reason Stop Dose Admin Acetaminophen 650 mg 09/01/24 04:45 09/01/24 21:26 Acetaminophen 325 Mg Tablet PO 650 mg Q4H PRN Administration Fever OR PAIN Albuterol 2 puff 08/29/24 23:55 09/01/24 21:44 Albuterol Sulfate (*Sp) Aerosol 1 Puff INHALATION 2 puff Q6HRT PRN Administration shortness of breath or wheezing Albuterol/Ipratropium 3 ml 09/02/24 02:00 09/02/24 02:08 Ipratropium 0.5 Mg/Albuterol Sulfate 2.5 Mg Ampul.Neb 3 Ml INHALATION 3 ml Q6HRT PJ Administration Amoxicillin/Clavulanate Potassium 1 tablet 08/31/24 09:00 09/01/24 21:27 Amoxicillin/Clavulanate K 875-125 Mg Tab PO 1 tablet Q12HR PJ Administration Carvedilol 6.25 mg 09/01/24 09:00 09/01/24 21:27 Carvedilol 6.25 Mg Tablet PO 6.25 mg Q12HR PJ Administration Dextrose 12.5 gm 08/29/24 23:58 Dextrose 50% 25 Gm/50 Ml Syringe IV PUSH PRN PRN Hypoglycemia Protocol Dorzolamide/Timolol 1 drop 08/30/24 09:00 09/01/24 21:27 Dorzolamide/Timolol Ophth Sarah 10 Ml Bottle EACH EYE 1 drop Q12HR PJ Administration Glucagon 1 mg 08/29/24 23:58 Glucagon For Inj 1 Mg Vial IM PRN PRN Hypoglycemia Protocol Glucose 15 gm 08/29/24 23:58 Glucose Oral Gel 15 Gm Of Glucse In 37.5 Gm Tube PO PRN PRN Hypoglycemia Protocol Guaifenesin 600 mg 08/30/24 09:00 09/01/24 21:28 Guaifenesin 12 Hr 600 Mg Tabcr PO 600 mg Q12HR PJ Administration Dextrose 1,000 mls @ 100 mls/hr 08/29/24 23:58 Dextrose 5% 1,000 Ml IVPB PRN PRN Hypoglycemia Protocol Sodium Chloride 1,000 mls @ 100 mls/hr 08/31/24 07:30 09/01/24 21:29 Normal Saline Iv IV CONT 100 mls/hr .Q10H PJ Administration Albumin Human 100 mls @ 60 mls/hr 09/02/24 08:07 Albutein IVPB 09/02/24 09:46 ONCE ONE Loperamide HCl 2 mg 09/01/24 07:40 09/01/24 10:19 Loperamide Hcl 2 Mg Capsule PO 2 mg PRN PRN Administration Diarrhea Ondansetron HCl 4 mg 08/29/24 19:39 Ondansetron Inj 4 Mg/2 Ml Vial IV PUSH Q4H PRN Nausea Pantoprazole Sodium 40 mg 08/30/24 09:00 09/01/24 08:16 Pantoprazole 40 Mg Tablet PO 40 mg DAILY PJ Administration Pravastatin Sodium 20 mg 08/30/24 21:00 09/01/24 21:26 Pravastatin Sodium 20 Mg Tablet PO 20 mg HS PJ Administration Sitagliptin Phosphate 25 mg 08/30/24 09:00 09/01/24 08:17 Sitagliptin Phosphate 25 Mg Tablet PO 25 mg DAILY PJ Administration Radiology Results: ITS Impressions Chest CT 08/29/24 19:06 IMPRESSION: Mild chronic bronchial wall thickening may reflect a component of bronchitis. Consider aspiration in the differential. Mild chronic interstitial lung disease in a UIP pattern, with a patulous esopha balbir, correlate for history of scleroderma. Ascending thoracic aortic ectasia. Modified Barium Swallow 08/30/24 15:03 IMPRESSION: Patient tolerated regular consistency oral feedings in the upright position. Please correlate with speech pathologist findings and specific feeding recommendations. Chest X-Ray 09/01/24 22:31 IMPRESSION: No focal infiltrate or effusion. Labs Labs: Laboratory Results - last 24 hr 09/01/24 09/01/24 09/01/24 12:06 17:00 19:55 WBC RBC Hgb Hct MCV MCH MCHC RDW Plt Count MPV Immature Gran % (Auto) Neut % (Auto) Lymph % (Auto) [place] % (Auto) Eos % (Auto) Baso % (Auto) Lymph # (Auto) [place] # (Auto) Eos # (Auto) Baso # (Auto) Abs Immat Gran (auto) Absolute Neuts (auto) Absolute Nucleated RBC Total Counted Neutrophils % (Manual) Band Neutrophils % Lymphocytes % (Manual) Monocytes % (Manual) Eosinophils % (Manual) Nucleated RBC % Abs Neuts (Manual) Abs Lymphs (Manual) Abs Monocytes (Manual) Absolute Eos (Manual) Smudge Cells Platelet Estimate Clumped Platelets Large Platelets Anisocytosis Schistocytes Sodium Potassium Chloride Carbon Dioxide Anion Gap BUN Creatinine Estim Creat Clear Calc Estimated GFR Glucose POC Capillary Glucose 181 H 161 H 186 H Calcium Magnesium Total Bilirubin AST ALT Alkaline Phosphatase NT-Pro-B Natriuret Pep Total Protein Albumin 09/01/24 09/02/24 22:29 04:42 WBC 11.0 H RBC 3.54 L Hgb 9.3 L Hct 31.1 L MCV 87.9 MCH 26.3 MCHC 29.9 L RDW 14.8 H Plt Count 373 MPV 9.7 Immature Gran % (Auto) Not Reportable Neut % (Auto) Not Reportable Lymph % (Auto) Not Reportable [place] % (Auto) Not Reportable Eos % (Auto) Not Reportable Baso % (Auto) Not Reportable Lymph # (Auto) Not Reportable [place] # (Auto) Not Reportable Eos # (Auto) Not Reportable Baso # (Auto) Not Reportable Abs Immat Gran (auto) Not Reportable Absolute Neuts (auto) Not Reportable Absolute Nucleated RBC Not Reportable Total Counted 100 Neutrophils % (Manual) 85 H Band Neutrophils % 5 Lymphocytes % (Manual) 2.0 L Monocytes % (Manual) 3 Eosinophils % (Manual) 5 H Nucleated RBC % Not Reportable Abs Neuts (Manual) 9.90 H Abs Lymphs (Manual) 0.22 L Abs Monocytes (Manual) 0.33 Absolute Eos (Manual) 0.55 H Smudge Cells Present Platelet Estimate Increased Clumped Platelets Present Large Platelets Present Anisocytosis 1+ Schistocytes None seen Sodium 132 L Potassium 4.4 Chloride 106 Carbon Dioxide 17 L Anion Gap 9 BUN 36 H Creatinine 3.66 H Estim Creat Clear Calc 15 Estimated GFR 16 L Glucose 143 H POC Capillary Glucose Calcium 7.6 L Magnesium 1.9 Total Bilirubin 0.4 AST 40 ALT 21 Alkaline Phosphatase 109 NT-Pro-B Natriuret Pep 6320 H Total Protein 5.0 L Albumin 2.7 L Quality VTE Prophylaxis VTE prophylaxis: mechanical ordered -Patient's previous records reviewed on admission -ER notes reviewed in detail on admission -discussed all findings and current treatment plan with patient/Family/POA -Consultations reviewed for recommendations -Patient's disposition for safe discharge discussed with case assembler Dictation performed by [employer] direct speech recognition software, therefore supervisor rolling room variants and typographical errors may occur. Hospitalist MIPS Advance Care Plan I have confirmed that the patient's Advanced Care Plan is present, code status is documented, or surrogate decision maker is listed in patient medical record.: Yes Medication Reconciliation I have utilized all available resources to obtain, update and review the patients current medications (includes all prescriptions, OTC, herbals, cannabis, and nutritional supplements).: Yes The patient is not eligible for med reconciliation; the patient is in a emergent medical situation where delaying treatment would jeopardize the patients health.: No
[2024-09-02 08:16] LABS: Glucose Point of Care 142 mg/dl (65-105)
[2024-09-02] MEDS: ALBUMIN HUMAN 25% 25 GM/100 ML 100 ML IVPB (09:08)
[2024-09-02] MEDS: AMOXICILLIN/CLAVULANATE K 875-125 MG TAB 1 TABLET PO ×2 (09:09→21:59)
[2024-09-02] MEDS: PANTOPRAZOLE 40 MG TABLET PO (09:09)
[2024-09-02] MEDS: carvediloL 6.25 MG TABLET PO (09:09)
[2024-09-02] MEDS: guaiFENesin 12 HR 600 MG TABCR PO ×2 (09:09→21:59)
[2024-09-02] MEDS: SITagliptin PHOSPHATE 25 MG TABLET PO (09:09)
[2024-09-02] MEDS: DORZOLAMIDE/TIMOLOL OPHTH SOL 10 ML BOTTLE 1 DROP EACH EYE ×2 (09:09→21:59)
--- NOTE | 2024-09-02 10:30 | P.CONNP_ITS ---
Assessment and Plan Assessment and plan (1) Acute kidney injury: Code(s): N17.9 - Acute kidney failure, unspecified Status: Acute Assessment and Plan: * as noted by labs during this admission: * admitted with a creatinine of 2.6mg/dl * fluctuated from 2.56 -> 3.26 -> 2.85 (from 08/30 - 09/01) * then up to 3.66mg/dl today (09/02) * suspect multifactorial etioilogy: * prerenal factors (nausea/vomiting on admission) * concurrent SARAH-I use prior to admission * relative hypotension on admission (90s systolic) * infection (aspiration pneumonia) * COPD exacerbation * other(?) * was on IVFs previously but stopped due to concerns of volume overload/elevated BNP * check renal ultrasound, urine studies, and CPK * follow trend of repeat labs and UOP (2) Stage 4 chronic kidney disease: Code(s): N18.4 - Chronic kidney disease, stage 4 (severe) Status: Chronic Assessment and Plan: * baseline creatinine runs ~ 1.9 - 2.3mg/dl since 2021 * however, has fluctuated to extremes with recent admissions/hospitalizations at [facility] in the last couple of months... * outpatient labs since 2024 show creatinine seems to be running closer to 2.2 - 2.7mg/dl * last outpatient creatinine was 2.66mg/dl on 07/18/24 * hence, there maybe a component of kidney disease progression... * CKD is secondary to HTN, diabetes, vascular disease, and age-related change * follows with [facility] (Dr. Lin Guerrero) (3) Aspiration pneumonia: Qualifiers: Aspiration pneumonia type: unspecified Laterality: unspecified laterality Lung location: unspecified part of lung Qualified Code(s): J69.0 - Pneumonitis due to inhalation of food and vomit Code(s): J69.0 - Pneumonitis due to inhalation of food and vomit Status: Acute Assessment and Plan: * CT scan findings consistent with chronic bronchitis and aspiration * however, he passed modified barium swallow testing * on antibiotics * off supplemental oxygen (4) Chronic obstructive pulmonary disease: Code(s): J44.9 - Chronic obstructive pulmonary disease, unspecified Status: Acute Assessment and Plan: * mild exacerbation possibly secondary to #3 * CXR negative * CT chest findings noted * weaned off supplemental oxygen * on steroids * nebulizer treatments PRN * incentive spirometry (5) Anemia: Code(s): D64.9 - Anemia, unspecified Status: Acute Assessment and Plan: * presumably related to GABRIELA and acute illness * follow trend of H/H (6) Hypertension: Code(s): I10 - Essential (primary) hypertension Status: Chronic Assessment and Plan: * reasonable control at this time * running soft at times * off SARAH-I due to #1 * follow trend of hemodynamics (7) Type 2 diabetes mellitus: Code(s): E11.9 - Type 2 diabetes mellitus without complications Status: Chronic Assessment and Plan: * follow accu-cheks * glycemic control per hospitalist (8) Adult failure to thrive: Code(s): R62.7 - Adult failure to thrive Status: Acute Assessment and Plan: * deconditioned state due to several issues: * recent hospitalizations * acute infection (aspiration pneumonia) * fluctuating renal function * metastatic prostate cancer * PT/OT as tolerated * possible need for placement(?) Long extensive discussion (> 20 minutes) with the patient as well as his at bedside regarding all of his above acute and chronic medical issues and the interventions/therapy to date that has been instituted to hopefully help/optimize these conditions to facilitate discharge from the hospital. I will continue to follow the patient with you while he remains hospitalized and make further recommendations as deemed necessary. Thank you for allowing me to participate in the care of this patient. L History of Present Illness Reason for Consult Consult date: 09/02/24 Reason for consult: acute renal failure (on chronic kidney disease) Chief Complaint Chief complaint: Aspiration pneumonia History of Present Illness Narrative: The patient is an 83-year-old male a past medical history as outlined who presented to [facility] Emergency nausea/vomiting and generalized weakness. The patient was just recently in the emergency room for similar symptoms but he improved with supportive therapy in the form of IV Zofran and gentle IV fluids and he was subsequently discharged. However, he returned back to the ER with similar symptoms as well as a concern by his family that it was getting more difficult to take care of him at home with the possibility that he may need placement. Along with his nausea and vomiting the patient also reports worsening fatigue and weakness secondary to his poor oral intake. Furthermore, he has also reported some shortness of breath in association with a productive cough. Workup and evaluation emergency room demonstrated the patient to be hemodynamically stable although his blood pressure was on the slightly lower than his baseline and he was afebrile. significant findings on routine blood work demonstrated hyponatremia, elevated proBNP, and all some worsening of his baseline chronic kidney disease. His chest x-ray showed right basilar atelectasis versus pneumonia and a subsequent CT scan of the chest showed chronic bilateral wall thickening which may reflect bronchitis or aspiration. Given the patient's history of vomiting, in conjunction with his cough and shortness of breath, there was a possible concern for aspiration pneumonia. After appropriate cultures were obtained, he was started on IV antibiotics and he was subsequently admitted to the hospital for further evaluation therapy. Since his admission, his respiratory status has been slowly improving with supportive therapy in the form of antibiotics, nebulizer treatments, steroids, as well as incentive spirometry as is felt that his aspiration pneumonia may have triggered his underlying COPD as well. He underwent a modified barium swallow study which showed no evidence of aspiration as well. Renal consultation was requested due to his acute kidney injury/acute renal failure on top of his baseline chronic kidney disease. The patient normally follows with [facility] for management of his chronic kidney disease. From review of the records via [facility], his baseline creatinine normally runs around 1.9 - 2.3 mg/dL since 2021 causing him to fluctuate between CKD stage IIIB and stage IV. The presumed etiology of his baseline chronic kidney disease is diabetes, hypertension, vascular disease, and age-related change. However, given his recent hospitalizations since the beginning of this year his renal function/creatinine has been fluctuating more although usually returns to baseline by the time hospital discharge. By his outpatient labs, his creatinine in April 2024 was 2.2 mg/dL, subsequently 2.7 mg/dL in May, then 2.4mg/dL in early June with his last outpatient creatinine of 2.6 mg/dL in early July of this year. It is unclear if these are just random fluctuations in his baseline kidney function but the concern is that this maybe an element chronic kidney disease progression. Currently, the time my visit, he does not appear to be acute distress but reports fatigue/weakness. Review of Systems 2 Review of Systems: As per HPI. PENDING SALE TO [facility] Past Medical History Medical History Esophageal ulcer Chronic kidney disease, stage 3 Paroxysmal atrial fibrillation Gastroesophageal reflux disease 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 He smokes 1-2 cigarettes per day most days. He denies marijuana use or other drug use. He drinks 1-2 alcoholic drinks per week. He has cats. Code status -full Surrogate decision maker - Years smoked: 50 Smoking status: Former smoker Tobacco type: cigarettes Second hand tobacco smoke exposure: Yes Smoking end date: 08/11/03 Additional smoking assessment comments: marijuana daily and regular cigarettes smokes intermittently Alcohol intake: never Drinks per week: 1 Substance use: never Substance use type: marijuana Other substance usage details: smoke once a day Last use: 07/30/2023 Do You Feel Safe in your Home?: Yes Lack of Transportation: No Lack of Food: Never True Current Housing: I Have Housing Concerned About Future Housing: No Difficulty Paying Gas/Electric Bills: No Difficulty Paying for Meds: No Currently Unemployed: No Education: High School Diploma/GED Difficulty w/ Childcare or Family Care: No Spiritual care concerns: No Meds Home Medications and Allergies Home Medications ?Medication ?Instructions ?Recorded ?Confirmed ?Type insulin aspart U-100 100 unit/mL 8 unit subcut TID 06/19/22 08/29/24 History (3 mL) subcutaneous pen (Novolog FlexPen U-100 Insulin aspart) insulin glargine 100 unit/mL (3 28 unit subcut QHS 06/19/22 08/29/24 History mL) subcutaneous pen (Lantus Solostar U-100 Insulin) pantoprazole 40 mg tablet,delayed 40 mg PO DAILY 06/19/22 08/29/24 History release albuterol sulfate 90 mcg/actuation 2 puff inhalation QID PRN 06/21/22 08/29/24 Rx aerosol inhaler shortness of breath or wheezing #8.5 grams abiraterone 250 mg tablet 1,000 mg PO HS 03/26/24 08/29/24 History carvedilol 12.5 mg tablet 12.5 mg PO Q12H 03/26/24 08/29/24 History chlorthalidone 25 mg tablet 25 mg PO DAILY 03/26/24 08/29/24 History dorzolamide 22.3 mg-timolol 6.8 1 drp EACH EYE Q12H 03/26/24 08/29/24 History mg/mL eye drops insulin aspart U-100 100 unit/mL 1 sliding scale dose subcut TID 03/26/24 08/29/24 History (3 mL) subcutaneous pen (Novolog FlexPen U-100 Insulin aspart) lisinopril 20 mg tablet 40 mg PO DAILY 03/26/24 08/29/24 History pravastatin 20 mg tablet 20 mg PO HS 03/26/24 08/29/24 History sitagliptin phosphate 25 mg tablet 25 mg PO DAILY 03/26/24 08/29/24 History (Januvia) ondansetron 4 mg disintegrating 4 mg PO Q8H #14 tabs 08/28/24 08/29/24 Rx tablet Allergies Allergy/AdvReac Type Severity Reaction Status Date / Time No Known Drug Allergies Allergy Unknown Other Verified 08/29/24 17:26 Vital Signs Vital Signs Temp Pulse Resp BP Pulse Ox O2 Del Method O2 Flow Rate 09/02/24 09:53 88 20 09/02/24 09:42 86 09/02/24 09:42 91 Nasal Cannula 1 09/02/24 09:09 80 09/02/24 05:09 98.2 F 93 16 114/37 L 93 09/02/24 02:17 81 20 09/02/24 02:09 85 20 09/02/24 02:00 94 Nasal Cannula 1 09/01/24 22:13 90 20 09/01/24 22:04 84 20 09/01/24 21:48 93 20 09/01/24 21:36 98.7 F 91 16 131/75 96 09/01/24 21:30 95 Nasal Cannula 2 09/01/24 21:27 68 09/01/24 14:00 97.7 F 98 19 112/60 93 Exam 2 Narrative: GENERAL APPEARANCE: ederly but well developed well nourished male in no acute distress HEENT: normocephalic, atraumatic, normal conjunctiva and sclera, nares patient NECK: no lymphadenopathy, thyromegaly, or JVD MOUTH: normal lips, teeth, and gums CARDIOVASCULAR: RRR, normal S1 and S2, no rub detected RESPIRATORY: coarse breath sounds with few scattered wheezes ABDOMEN: soft, nontender, nondistended, positive bowel sounds present EXTREMITIES: no evidence of cyanosis, clubbing, or edema NEUROLOGICAL: awake and alert; generalized weakness noted Results Lab Results 09/04/24 04:51 09/04/24 04:51 Lab results: Most recent lab results Calcium 7.6 mg/dL (8.4-10.2) L 09/02/24 04:42 Magnesium 1.9 mg/dL (1.6-2.3) 09/02/24 04:42
[2024-09-02 10:34] LABS: Creatine Kinase 102 U/L (55-170)
[2024-09-02 12:03] LABS: Glucose Point of Care 177 mg/dl (65-105)
[2024-09-02] MEDS: FUROSEMIDE INJ 40 MG/4 ML VIAL 20 MG IV PUSH (14:07)
[2024-09-02] MEDS: predniSONE 20 MG TABLET 40 MG PO (14:07)
--- NOTE | 2024-09-02 14:53 | PCPTNOTE ---
Pt refused therapy at this time, pt was groggy and stated he is having hot flashes and cant do it. communicated with pt that getting up and moving will help decrease the hot flashes but pt still unwilling. Will attempt again if time.
[2024-09-02 16:18] LABS: Creatinine Urine 135.9 mg/dL
[2024-09-02 16:23] LABS: Total Protein Urine Random 47 mg/dL; Urea Random Urine 307 MG/DL
[2024-09-02 16:24] LABS: Sodium Urine Random 44 meq/L
[2024-09-02 16:25] LABS: Add Urine Microscopic? YES; Appearance Urine Clear (Clear); Bacteria Urine None Seen /hpf; Bilirubin Urine Negative (Negative); Blood Urine Negative (Negative); Color Urine Yellow (Yellow); Glucose Urine UA Negative (Negative); Hyaline Casts Urine Present /lpf; Ketones Urine Negative (Negative); Leukocyte Esterase Ur Negative LEU/UL (Negative); Need Manual Microscopic Reviewed; Nitrate Urine Negative (Negative); Protein Urine 1+ mg/dL (Negative); RBC Urine 0-2 /hpf (0-2); Specific Grav Ur 1.016 (1.001-1.035); Squamous Epithelial Cell Urine None Seen /hpf (Few); Urobilinogen Urine 0.2 mg/dL (<2.0); WBC Urine 0-5 /hpf (0-3); pH Urine 5.5 (5.0-9.0)
[2024-09-02 16:30] LABS: Creatinine Urine 137.5 mg/dL; Total Protein Urine Random 45 mg/dL; Ur Ttl Prot Creatinine Ratio 0.33 mg/mg (0-0.20)
[2024-09-02 18:20] LABS: Eosinophil Urine None Seen % (None Seen); Urine Eos QC 2nd Tech Confirmed
[2024-09-02 18:28] LABS: Glucose Point of Care 210 mg/dl (65-105)
[2024-09-02 20:04] LABS: Glucose Point of Care 231 mg/dl (65-105)
[2024-09-02] MEDS: PRAVASTATIN SODIUM 20 MG TABLET PO (21:59)
[2024-09-03] VITALS (15 sets, daily range): BP systolic 127–138; BP diastolic 62–73; PULSE 80–92; RESP 16–20; TEMP 36.2–37; O2SAT 96–98
[2024-09-03] MEDS: IPRATROPIUM 0.5 MG/ALBUTEROL SULFATE 2.5 MG AMPUL.NEB 3 ML INHALATION ×4 (02:17→20:07)
[2024-09-03 05:24] LABS: Basophils Percent Auto 0.1 % (0.2-1.2); Hematocrit 30.9 % (42.0-52.0); Hemoglobin 9.1 g/dL (14.0-18.0); Immature Granulocyte Absolute 0.06 K/mm3 (0.00-0.031); Immature Granulocyte Percent A 0.7 % (0-0.5); Lymphocytes Absolute Auto 0.42 K/mm3 (0.9-3.2); Lymphocytes Percent Auto 4.7 % (18.3-44.2); Mean Corpuscular HGB Conc 29.4 g/dl (32-36); Mean Corpuscular Volume 88.3 fl (80-100); Mean Platelet Volume 9.7 fl (7.4-10.4); Monocytes Absolute Auto 0.2 K/mm3 (0.1-0.6); Monocytes Percent Auto 1.8 % (2.6-8.5); Neutrophils Absolute Auto 8.3 K/mm3 (1.3-6.7); Neutrophils Percent Auto 92.7 % (45.5-73.1); Platelet Count Result 438 k/mm3 (150-375); Red Cell Distribution Width 14.9 % (11.5-14.5); White Blood Count 8.9 K/mm3 (4.5-10.0)
[2024-09-03 05:29] LABS: Alanine Aminotransferase 21 U/L (6-50); Albumin Level 2.9 g/dL (3.5-5.1); Alkaline Phosphatase 113 U/L (38-126); Anion Gap 12 mmol/L (4-12); Aspartate Amino Transferase 31 U/L (17-59); Bilirubin,Total 0.5 mg/dL (0.2-1.3); Blood Urea Nitrogen 42 mg/dL (9-20); Carbon Dioxide 15 mmol/L (22-30); Chloride 104 mmol/L (98-107); Estimated CRCL calculation 14 ml/min; Estimated Glomerular Filt Rate 15; Glucose 261 mg/dL (65-110); Magnesium 1.9 mg/dL (1.6-2.3); Potassium 4.8 mmol/L (3.4-5.0); Sodium 131 mmol/L (137-145)
[2024-09-03 07:02] LABS: Hypochromasia 1+; Platelet Estimate Increased (Adequate)
[2024-09-03 07:03] LABS: Crenated RBC 1+; Ovalocytes 1+
[2024-09-03 07:04] LABS: Schistocytes None Seen
[2024-09-03 08:04] LABS: Glucose Point of Care 261 mg/dl (65-105)
--- NOTE | 2024-09-03 08:36 | P.PNIM_ITS ---
Progress Note: A&P Assessment and Plan (1) Chronic obstructive pulmonary disease: Code(s): J44.9 - Chronic obstructive pulmonary disease, unspecified Status: Acute Assessment and Plan: Patient with history of Chronic bronchitis started requiring 1 L supplemental oxygen to maintain 92% could be secondary to COPD had also been receiving fluids and fluid overload could be contributing factor * BNP >6000 * Echo reviewed * CXR no infiltrate or effusion * gave 1x dose 20mg lasix * started on PO prednisone for underlying COPD * Duonebs started * encourage incentive spirometer * Wean supplemental oxygen to maintain 92% * May need oxygen at discharge * Started on Augmentin (2) Aspiration pneumonia: Qualifiers: Aspiration pneumonia type: unspecified Laterality: unspecified laterality Lung location: unspecified part of lung Qualified Code(s): J69.0 - Pneumonitis due to inhalation of food and vomit Code(s): J69.0 - Pneumonitis due to inhalation of food and vomit Status: Acute Assessment and Plan: Nausea/vomiting for several days, initially improved with Zofran, Cough, shortness of breath increased since vomiting started. CT scan shows findings consistent with chronic bronchitis and aspiration. Patient passed barium swallow * Transition to oral Augmentin * continue Guaifenesin for cough * Level 7 diet regular with thin liquids * supplemental oxygen PRN maintain 92% (3) Acute on chronic renal failure: Code(s): N17.9 - Acute kidney failure, unspecified; N18.9 - Chronic kidney disease, unspecified Status: Acute Assessment and Plan: History of CKD, stage 3b-4, Currently increased BUN/Cr compared to prior result, Likely mild dehydration from nausea/vomiting as well as multiple episodes of diarrhea though increasing renal dysfunction patient dehydrated Cr bumped to 3.25 improved IV fluids close to baseline but bumped back up to 3.66 once IV fluids placed on hold Likely close to patient new baseline nephrology to evaluate for any further recommendations * IV fluids on hold 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 * Gave dose of Albumin * Patient follows with shaft mechanic Sukhjinder with Dr. Lin Guerrero * consulted Nephrology appreciate any further recommendations * Avoid nephrotoxins if possible * Routine CMP monitoring GFR. * Monitor electrolytes especially potassium. * Antibiotic doses depending on creatinine clearance. * Gentle Fluid resuscitation (4) Type 2 diabetes mellitus: Code(s): E11.9 - Type 2 diabetes mellitus without complications Status: Chronic Assessment and Plan: * ACCUcheck ACHS * SSI * currently holding Jadiance due to NPO status * Will hold off on resuming Lantus since NPO at this time (5) Paroxysmal atrial fibrillation: Code(s): I48.0 - Paroxysmal atrial fibrillation Status: Acute Assessment and Plan: Rate controlled * Not currently anticoagulated, need to inquire with family about this (6) Hypertension: Code(s): I10 - Essential (primary) hypertension Status: Chronic Assessment and Plan: * BP soft decreased coreg from 12.5 to 6.25 BID * BP per unit protocol (7) Adult failure to thrive: Code(s): R62.7 - Adult failure to thrive Status: Acute Assessment and Plan: Patient mildly confused, possible aspiration pneumonia, worsening renal dysfunction 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 Renal function worsened nephrology consulted waiting on Auth for placement to SNF Subjective Date/time seen: 09/03/24 08:36 Interval history: Interval Hx: 83-year-old male, with past medical history of hypertension, diabetes, CKD, AFIB, who presented to the ED with complaint of ongoing nausea/vomiting and generalized weakness. Patient recently had multiple admissions. Currently patient is admitted in the setting of GABRIELA on CKD, COPD and aspiration pneumonia. Patient received Zosyn and currently on Amoxil/cav for aspiration pneumonia. For COPD patient is receiving prednisone. His BNP is greater than 6000. Will repeat a chest x-ray and BMP tomorrow morning. 09/03/2024: Patient is currently feeling better. Discussed with Nephrology probably will start gentle fluid resuscitation. Will monitor his BMP and repeat chest x-ray tomorrow morning. Review of Systems Review of Systems: All systems reviewed & are unremarkable except as noted in HPI and below ROS unobtainable: Yes unobtainable due to mental status Exam Narrative: GENERAL: Well nourished, appears fatigued, cough but no respiratory distress HEAD: Normocephalic, atraumatic. ENT:? Mucous membranes moist. HEART: RRR Respiratory: productive cough, mild scattered wheezing ABDOMEN: Soft, nontender, nondistended. EXTREMITIES: Normal range of motion. No peripheral edema. SKIN: Warm dry normal color NEURO: Awake, alert, mildly confused but pleasant PSYCH: Normal affect Objective Data Vital Signs Vital Signs: Vital Signs - 24 hr 09/02/24 09:09 09/02/24 09:42 09/02/24 09:42 Temperature Pulse Rate 80 86 Respiratory Rate 20 Blood Pressure Pulse Oximetry 91 Oxygen Delivery Nasal Cannula Oxygen Flow Rate 1 09/02/24 09:53 09/02/24 14:00 09/02/24 14:01 Temperature 98.2 F Pulse Rate 88 80 84 Respiratory Rate 20 18 20 Blood Pressure 120/43 L Pulse Oximetry 99 Oxygen Delivery Oxygen Flow Rate 09/02/24 14:12 09/02/24 19:22 09/02/24 20:00 Temperature 98.8 F Pulse Rate 80 77 Respiratory Rate 20 18 Blood Pressure 96/44 L Pulse Oximetry 97 96 Oxygen Delivery Nasal Cannula Oxygen Flow Rate 2 09/02/24 20:06 09/02/24 20:16 09/02/24 20:20 Temperature 98.8 F Pulse Rate 82 82 77 Respiratory Rate 20 20 18 Blood Pressure 100/54 L Pulse Oximetry 97 Oxygen Delivery Oxygen Flow Rate 09/02/24 20:43 09/02/24 22:00 09/03/24 02:17 Temperature Pulse Rate 77 82 Respiratory Rate 20 Blood Pressure Pulse Oximetry 93 Oxygen Delivery Nasal Cannula Oxygen Flow Rate 1 09/03/24 02:28 09/03/24 04:40 Temperature 98.6 F Pulse Rate 82 85 Respiratory Rate 20 16 Blood Pressure 127/67 Pulse Oximetry 97 Oxygen Delivery Oxygen Flow Rate Intake/Output Intake/Output: Intake & Output 08/31/24 09/01/24 09/02/24 09/03/24 23:59 23:59 23:59 23:59 Intake Total 2059 3875.0 940 100 Balance 2059 3875.0 940 100 Meds/Results Medications: Active Medications Generic Name Dose Route Start Last Admin Trade Name Freq PRN Reason Stop Dose Admin Acetaminophen 650 mg 09/01/24 04:45 09/01/24 21:26 Acetaminophen 325 Mg Tablet PO 650 mg Q4H PRN Administration Fever OR PAIN Albuterol 2 puff 08/29/24 23:55 09/01/24 21:44 Albuterol Sulfate (*Sp) Aerosol 1 Puff INHALATION 2 puff Q6HRT PRN Administration shortness of breath or wheezing Albuterol/Ipratropium 3 ml 09/02/24 02:00 09/03/24 02:17 Ipratropium 0.5 Mg/Albuterol Sulfate 2.5 Mg Ampul.Neb 3 Ml INHALATION 3 ml Q6HRT PJ Administration Amoxicillin/Clavulanate Potassium 1 tablet 08/31/24 09:00 09/02/24 21:59 Amoxicillin/Clavulanate K 875-125 Mg Tab PO 1 tablet Q12HR PJ Administration Carvedilol 6.25 mg 09/01/24 09:00 09/02/24 22:00 Carvedilol 6.25 Mg Tablet PO Not Given Q12HR PJ Dextrose 12.5 gm 08/29/24 23:58 Dextrose 50% 25 Gm/50 Ml Syringe IV PUSH PRN PRN Hypoglycemia Protocol Dorzolamide/Timolol 1 drop 08/30/24 09:00 09/02/24 21:59 Dorzolamide/Timolol Ophth Sarah 10 Ml Bottle EACH EYE 1 drop Q12HR PJ Administration Glucagon 1 mg 08/29/24 23:58 Glucagon For Inj 1 Mg Vial IM PRN PRN Hypoglycemia Protocol Glucose 15 gm 08/29/24 23:58 Glucose Oral Gel 15 Gm Of Glucse In 37.5 Gm Tube PO PRN PRN Hypoglycemia Protocol Guaifenesin 600 mg 08/30/24 09:00 09/02/24 21:59 Guaifenesin 12 Hr 600 Mg Tabcr PO 600 mg Q12HR PJ Administration Dextrose 1,000 mls @ 100 mls/hr 08/29/24 23:58 Dextrose 5% 1,000 Ml IVPB PRN PRN Hypoglycemia Protocol Sodium Chloride 1,000 mls @ 100 mls/hr 08/31/24 07:30 09/01/24 21:29 Normal Saline Iv IV CONT 100 mls/hr .Q10H PJ Administration Insulin Aspart 2 - 5 units 09/03/24 08:00 Insulin Aspart (*Bkc) 100 Units/Ml SUB-Q TIDWM PJ Protocol Insulin Aspart 1 - 2 units 09/03/24 21:00 Insulin Aspart (*Bkc) 100 Units/Ml SUB-Q HS PJ Protocol Loperamide HCl 2 mg 09/01/24 07:40 09/01/24 10:19 Loperamide Hcl 2 Mg Capsule PO 2 mg PRN PRN Administration Diarrhea Ondansetron HCl 4 mg 08/29/24 19:39 Ondansetron Inj 4 Mg/2 Ml Vial IV PUSH Q4H PRN Nausea Pantoprazole Sodium 40 mg 08/30/24 09:00 09/02/24 09:09 Pantoprazole 40 Mg Tablet PO 40 mg DAILY PJ Administration Pravastatin Sodium 20 mg 08/30/24 21:00 09/02/24 21:59 Pravastatin Sodium 20 Mg Tablet PO 20 mg HS PJ Administration Prednisone 40 mg 09/02/24 13:40 09/02/24 14:07 Prednisone 20 Mg Tablet PO 40 mg DAILY@0800 PJ Administration Sitagliptin Phosphate 25 mg 08/30/24 09:00 09/02/24 09:09 Sitagliptin Phosphate 25 Mg Tablet PO 25 mg DAILY PJ Administration Radiology Results: ITS Impressions Chest CT 08/29/24 19:06 IMPRESSION: Mild chronic bronchial wall thickening may reflect a component of bronchitis. Consider aspiration in the differential. Mild chronic interstitial lung disease in a UIP pattern, with a patulous esophagus, correlate for history of scleroderma. Ascending thoracic aortic ectasia. Modified Barium Swallow 08/30/24 15:03 IMPRESSION: Patient tolerated regular consistency oral feedings in the upright position. Please correlate with speech pathologist findings and specific feeding recommendations. Chest X-Ray 09/01/24 22:31 IMPRESSION: No focal infiltrate or effusion. Renal Ultrasound 09/02/24 11:44 IMPRESSION: 1. 2.7 cm left renal cyst. Otherwise normal kidneys without hydronephrosis. Labs Labs: Laboratory Results - last 24 hr 09/02/24 09/02/24 09/02/24 04:42 11:58 15:55 WBC RBC Hgb Hct MCV MCH MCHC RDW Plt Count MPV Immature Gran % (Auto) Neut % (Auto) Lymph % (Auto) [place] % (Auto) Eos % (Auto) Baso % (Auto) Lymph # (Auto) [place] # (Auto) Eos # (Auto) Baso # (Auto) Abs Immat Gran (auto) Absolute Neuts (auto) Absolute Nucleated RBC Band Neutrophils % Nucleated RBC % Platelet Estimate Hypochromasia Ovalocytes Crenated Cell Schistocytes Sodium Potassium Chloride Carbon Dioxide Anion Gap BUN Creatinine Estim Creat Clear Calc Estimated GFR Glucose POC Capillary Glucose 177 H Calcium Magnesium Total Bilirubin AST ALT Alkaline Phosphatase Total Creatine Kinase 102 Total Protein Albumin Urine Color Yellow Urine Appearance Clear Urine pH 5.5 Ur Specific Risco 1.016 Urine Protein 1+ H Urine Glucose (UA) Negative Urine Ketones Negative Ur Blood (Man) Negative Urine Nitrate Negative Urine Bilirubin Negative Urine Urobilinogen 0.2 Add Ur Microanalysis Reviewed Leukocyte Esterase Rfl Negative Urine RBC 0-2 Urine WBC 0-5 Ur Squamous Epith Cells None seen Urine Bacteria None seen Urine Casts 11-20 Hyaline Casts Present Urine Eosinophils U Random Total Protein 47 Ur Random Sodium Ur Random Urea Urine Creatinine Protein/Creat Ratio 2 09/02/24 09/02/24 09/02/24 15:55 15:56 16:46 WBC RBC Hgb Hct MCV MCH MCHC RDW Plt Count MPV Immature Gran % (Auto) Neut % (Auto) Lymph % (Auto) [place] % (Auto) Eos % (Auto) Baso % (Auto) Lymph # (Auto) [place] # (Auto) Eos # (Auto) Baso # (Auto) Abs Immat Gran (auto) Absolute Neuts (auto) Absolute Nucleated RBC Band Neutrophils % Nucleated RBC % Platelet Estimate Hypochromasia Ovalocytes Crenated Cell Schistocytes Sodium Potassium Chloride Carbon Dioxide Anion Gap BUN Creatinine Estim Creat Clear Calc Estimated GFR Glucose POC Capillary Glucose 210 H Calcium Magnesium Total Bilirubin AST ALT Alkaline Phosphatase Total Creatine Kinase Total Protein Albumin Urine Color Urine Appearance Urine pH Ur Specific R[place] Urine Protein Urine Glucose (UA) Urine Ketones Ur Blood (Man) Urine Nitrate Urine Bilirubin Urine Urobilinogen Add Ur Microanalysis Leukocyte Esterase Rfl Urine RBC Urine WBC Ur Squamous Epith Cells Urine Bacteria Urine Casts Hyaline Casts Urine Eosinophils None seen U Random Total Protein 45 Ur Random Sodium 44 Ur Random Urea 307 Urine Creatinine 137.5 135.9 Protein/Creat Ratio 2 0.33 H 09/02/24 09/03/24 09/03/24 19:20 04:34 07:48 WBC 8.9 RBC 3.50 L Hgb 9.1 L Hct 30.9 L MCV 88.3 MCH 26.0 MCHC 29.4 L RDW 14.9 H Plt Count 438 H MPV 9.7 Immature Gran % (Auto) 0.7 H Neut % (Auto) 92.7 H Lymph % (Auto) 4.7 L [place] % (Auto) 1.8 L Eos % (Auto) 0.0 Baso % (Auto) 0.1 L Lymph # (Auto) 0.42 L [place] # (Auto) 0.2 Eos # (Auto) 0.0 Baso # (Auto) 0.0 Abs Immat Gran (auto) 0.06 H Absolute Neuts (auto) 8.3 H Absolute Nucleated RBC 0.000 Band Neutrophils % Not Reportable Nucleated RBC % 0.0 Platelet Estimate Increased Hypochromasia 1+ Ovalocytes 1+ Crenated Cell 1+ Schistocytes None seen Sodium 131 L Potassium 4.8 Chloride 104 Carbon Dioxide 15 L Anion Gap 12 BUN 42 H Creatinine 3.77 H Estim Creat Clear Calc 14 Estimated GFR 15 L Glucose 261 H POC Capillary Glucose 231 H 261 H Calcium 8.0 L Magnesium 1.9 Total Bilirubin 0.5 AST 31 ALT 21 Alkaline Phosphatase 113 Total Creatine Kinase Total Protein 6.0 L Albumin 2.9 L Urine Color Urine Appearance Urine pH Ur Specific Risco Urine Protein Urine Glucose (UA) Urine Ketones Ur Blood (Man) Urine Nitrate Urine Bilirubin Urine Urobilinogen Add Ur Microanalysis Leukocyte Esterase Rfl Urine RBC Urine WBC Ur Squamous Epith Cells Urine Bacteria Urine Casts Hyaline Casts Urine Eosinophils U Random Total Protein Ur Random Sodium Ur Random Urea Urine Creatinine Protein/Creat Ratio 2 Quality VTE Prophylaxis VTE prophylaxis: mechanical ordered Hospitalist MIPS Advance Care Plan I have confirmed that the patient's Advanced Care Plan is present, code status is documented, or surrogate decision maker is listed in patient medical record.: Yes Medication Reconciliation I have utilized all available resources to obtain, update and review the patients current medications (includes all prescriptions, OTC, herbals, cannabis, and nutritional supplements).: Yes
[2024-09-03] MEDS: guaiFENesin 12 HR 600 MG TABCR PO ×2 (09:03→20:24)
[2024-09-03] MEDS: PANTOPRAZOLE 40 MG TABLET PO (09:03)
[2024-09-03] MEDS: SITagliptin PHOSPHATE 25 MG TABLET PO (09:03)
[2024-09-03] MEDS: carvediloL 6.25 MG TABLET PO ×2 (09:03→20:23)
[2024-09-03] MEDS: predniSONE 20 MG TABLET 40 MG PO (09:03)
[2024-09-03] MEDS: AMOXICILLIN/CLAVULANATE K 875-125 MG TAB 1 TABLET PO ×2 (09:03→20:24)
[2024-09-03] MEDS: INSULIN ASPART (*BKC) 100 UNITS/ML SUB-Q ×4 (09:04→20:32)
[2024-09-03] MEDS: DORZOLAMIDE/TIMOLOL OPHTH SOL 10 ML BOTTLE 1 DROP EACH EYE ×2 (09:04→20:24)
--- NOTE | 2024-09-03 10:16 | PCOTNOTE ---
Attempted to see pt for OT treatment this AM. Pt is currently in bed, watching tv. Pt declined to participate in session now due to just getting back in bed, however, states that he would like to be seen later today.
--- NOTE | 2024-09-03 10:45 | P.PNNP_ITS ---
Progress Note: A&P Assessment and Plan (1) Acute kidney injury: Code(s): N17.9 - Acute kidney failure, unspecified Status: Acute Assessment and Plan: * as noted by labs during this admission: * admitted with a creatinine of 2.6mg/dl * fluctuated from 2.56 -> 3.26 -> 2.85 (from 08/30 - 09/01) * then up to 3.66mg/dl today (09/02) * suspect multifactorial etioilogy: * prerenal factors (nausea/vomiting on admission) * concurrent SARAH-I use prior to admission * relative hypotension on admission (90s systolic) * infection (aspiration pneumonia) * COPD exacerbation * other(?) * evaluation to date noted: * renal ultrasund without obstruction * urine electrolytes prerenal * urine eosinophils negative * CPK normal * mild proteinuria * was on IVFs previously but stopped due to concerns of volume overload/elevated BNP * repeat CXR today * if no evidence of volume overload/PVC, consider repeat trial of IVFs * follow trend of repeat labs and UOP (2) Stage 4 chronic kidney disease: Code(s): N18.4 - Chronic kidney disease, stage 4 (severe) Status: Chronic Assessment and Plan: * baseline creatinine runs ~ 1.9 - 2.3mg/dl since 2021 * however, has fluctuated to extremes with recent admissions/hospitalizations at [facility] in the last couple of months... * outpatient labs since 2024 show creatinine seems to be running closer to 2.2 - 2.7mg/dl * last outpatient creatinine was 2.66mg/dl on 07/18/24 * hence, there maybe a component of kidney disease progression... * CKD is secondary to HTN, diabetes, vascular disease, and age-related change * follows with [facility] (Dr. Lin Guerrero) (3) Aspiration pneumonia: Qualifiers: Aspiration pneumonia type: unspecified Laterality: unspecified laterality Lung location: unspecified part of lung Qualified Code(s): J69.0 - Pneumonitis due to inhalation of food and vomit Code(s): J69.0 - Pneumonitis due to inhalation of food and vomit Status: Acute Assessment and Plan: * CT scan findings consistent with chronic bronchitis and aspiration * however, he passed barium swallow evaluation * on antibiotics * off supplemental oxygen (4) Chronic obstructive pulmonary disease: Code(s): J44.9 - Chronic obstructive pulmonary disease, unspecified Status: Acute Assessment and Plan: * mild exacerbation possibly secondary to #3 * CXR negative * CT chest findings noted * weaned off supplemental oxygen * on steroids * nebulizer treatments PRN * incentive spirometry (5) Anemia: Code(s): D64.9 - Anemia, unspecified Status: Acute Assessment and Plan: * presumably related to GABRIELA, CKD and acute illness * follow trend of H/H (6) Hypertension: Code(s): I10 - Essential (primary) hypertension Status: Chronic Assessment and Plan: * reasonable control at this time * running soft at times * off SARAH-I due to #1 * follow trend of hemodynamics (7) Type 2 diabetes mellitus: Code(s): E11.9 - Type 2 diabetes mellitus without complications Status: Chronic Assessment and Plan: * follow accu-cheks * glycemic control per hospitalist (8) Adult failure to thrive: Code(s): R62.7 - Adult failure to thrive Status: Acute Assessment and Plan: * deconditioned state due to several issues: * recent hospitalizations * acute infection (aspiration pneumonia) * fluctuating renal function * metastatic prostate cancer * PT/OT as tolerated * possible need for placement(?) Case discussed with Dr. Jama (Hospitalist). Will continue to follow. L Subjective Date/time seen: 09/03/24 10:45 Interval history: Follow-up for acute kidney injury/acute renal failure on chronic kidney disease. Renal function/creatinine worse by trend of labs but he states that he feels quite well/better in general at the time of my visit; no apparent distress noted; no issues/events overnight or earlier this morning; breathing/respiratory status seems stable if not better when seen. Exam 2 Narrative: General: elderly but WD/WN male in NAD Heart: normal S1 and S2; no rub Lungs: coarse breath sounds Abdomen: soft, nontender, nondistended, positive bowel sounds Extremities: no cyanosis or clubbing; no edema Skin: warm and dry Objective Data Vital Signs Vital Signs: Vital Signs Temp Pulse Resp BP Pulse Ox O2 Del Method O2 Flow Rate 09/03/24 10:45 97.1 F L 90 16 127/62 98 09/03/24 09:03 87 20 98 Room Air 09/03/24 09:02 97.6 F 92 20 132/70 98 09/03/24 08:52 88 20 09/03/24 08:38 90 20 09/03/24 08:38 96 Room Air 09/03/24 04:40 98.6 F 85 16 127/67 97 09/03/24 02:28 82 20 09/03/24 02:17 82 20 09/02/24 22:00 77 09/02/24 20:43 93 Nasal Cannula 1 09/02/24 20:20 98.8 F 77 18 100/54 L 97 09/02/24 20:16 82 20 09/02/24 20:06 82 20 09/02/24 20:00 96 Nasal Cannula 2 09/02/24 19:22 98.8 F 77 18 96/44 L 97 Intake/Output Intake/Output: Intake & Output 08/31/24 09/01/24 09/02/24 09/03/24 23:59 23:59 23:59 23:59 Intake Total 2059 3875.0 940 580 Balance 2059 3875.0 940 580 Meds/Results Medications: Active Medications Generic Name Dose Route Start Last Admin Trade Name Freq PRN Reason Stop Dose Admin Acetaminophen 650 mg 09/01/24 04:45 09/01/24 21:26 Acetaminophen 325 Mg Tablet PO 650 mg Q4H PRN Administration Fever OR PAIN Albuterol 2 puff 08/29/24 23:55 09/01/24 21:44 Albuterol Sulfate (*Sp) Aerosol 1 Puff INHALATION 2 puff Q6HRT PRN Administration shortness of breath or wheezing Albuterol/Ipratropium 3 ml 09/02/24 02:00 09/03/24 13:59 Ipratropium 0.5 Mg/Albuterol Sulfate 2.5 Mg Ampul.Neb 3 Ml INHALATION 3 ml Q6HRT PJ Administration Amoxicillin/Clavulanate Potassium 1 tablet 08/31/24 09:00 09/03/24 09:03 Amoxicillin/Clavulanate K 875-125 Mg Tab PO 1 tablet Q12HR PJ Administration Carvedilol 6.25 mg 09/01/24 09:00 09/03/24 09:03 Carvedilol 6.25 Mg Tablet PO 6.25 mg Q12HR PJ Administration Dextrose 12.5 gm 09/03/24 12:30 Dextrose 50% 25 Gm/50 Ml Syringe IV PUSH PRN PRN Hypoglycemia Protocol Dorzolamide/Timolol 1 drop 08/30/24 09:00 09/03/24 09:04 Dorzolamide/Timolol Ophth Sarah 10 Ml Bottle EACH EYE 1 drop Q12HR PJ Administration Glucagon 1 mg 09/03/24 12:30 Glucagon For Inj 1 Mg Vial IM PRN PRN Hypoglycemia Protocol Glucose 15 gm 09/03/24 12:30 Glucose Oral Gel 15 Gm Of Glucse In 37.5 Gm Tube PO PRN PRN Hypoglycemia Protocol Guaifenesin 600 mg 08/30/24 09:00 09/03/24 09:03 Guaifenesin 12 Hr 600 Mg Tabcr PO 600 mg Q12HR PJ Administration Sodium Chloride 1,000 mls @ 100 mls/hr 08/31/24 07:30 09/01/24 21:29 Normal Saline Iv IV CONT 100 mls/hr .Q10H PJ Administration Dextrose 1,000 mls @ 100 mls/hr 09/03/24 12:30 Dextrose 5% 1,000 Ml IVPB PRN PRN Hypoglycemia Protocol Sodium Chloride 1,000 mls @ 75 mls/hr 09/03/24 17:05 Normal Saline Iv IV CONT 09/03/24 23:44 .[id number] PJ Insulin Aspart 3 - 6 units 09/03/24 16:30 09/03/24 16:52 Insulin Aspart (*Bkc) 100 Units/Ml SUB-Q 5 units ACHS PJ Administration Protocol Loperamide HCl 2 mg 09/01/24 07:40 09/01/24 10:19 Loperamide Hcl 2 Mg Capsule PO 2 mg PRN PRN Administration Diarrhea Ondansetron HCl 4 mg 08/29/24 19:39 Ondansetron Inj 4 Mg/2 Ml Vial IV PUSH Q4H PRN Nausea Pantoprazole Sodium 40 mg 08/30/24 09:00 09/03/24 09:03 Pantoprazole 40 Mg Tablet PO 40 mg DAILY PJ Administration Pravastatin Sodium 20 mg 08/30/24 21:00 09/02/24 21:59 Pravastatin Sodium 20 Mg Tablet PO 20 mg HS PJ Administration Prednisone 40 mg 09/02/24 13:40 09/03/24 09:03 Prednisone 20 Mg Tablet PO 40 mg DAILY@0800 PJ Administration Sitagliptin Phosphate 25 mg 08/30/24 09:00 09/03/24 09:03 Sitagliptin Phosphate 25 Mg Tablet PO 25 mg DAILY PJ Administration Radiology Results: ITS Impressions Chest CT 08/29/24 19:06 IMPRESSION: Mild chronic bronchial wall thickening may reflect a component of bronchitis. Consider aspiration in the differential. Mild chronic interstitial lung disease in a UIP pattern, with a patulous esophagus, correlate for history of scleroderma. Ascending thoracic aortic ectasia. Modified Barium Swallow 08/30/24 15:03 IMPRESSION: Patient tolerated regular consistency oral feedings in the upright position. Please correlate with speech pathologist findings and specific feeding recommendations. Renal Ultrasound 09/02/24 11:44 IMPRESSION: 1. 2.7 cm left renal cyst. Otherwise normal kidneys without hydronephrosis. Chest X-Ray 09/03/24 15:49 IMPRESSION: Cardiomegaly. No acute cardiopulmonary pathology. Labs Labs: Laboratory Tests 09/03/24 04:34 09/03/24 04:34 Calcium 8.0 L Magnesium 1.9 Total Bilirubin 0.5 AST 31 ALT 21 Alkaline Phosphatase 113 Total Protein 6.0 L Albumin 2.9 L
[2024-09-03 11:51] LABS: Glucose Point of Care 333 mg/dl (65-105)
[2024-09-03 16:46] LABS: Glucose Point of Care 341 mg/dl (65-105)
[2024-09-03] MEDS: SODIUM CHLORIDE 0.9% IV 1,000 ML 75 ML IV CONT (17:19)
[2024-09-03] MEDS: PRAVASTATIN SODIUM 20 MG TABLET PO (20:24)
[2024-09-03 21:10] LABS: Glucose Point of Care 336 mg/dl (65-105)
[2024-09-04] VITALS (16 sets, daily range): BP systolic 127–148; BP diastolic 65–87; PULSE 72–100; RESP 18–22; TEMP 36.4–36.8; O2SAT 93–99
--- NOTE | 2024-09-04 02:03 | PCRCNOTE ---
Patient refused 0200 treatment
[2024-09-04] MEDS: IPRATROPIUM 0.5 MG/ALBUTEROL SULFATE 2.5 MG AMPUL.NEB 3 ML INHALATION ×4 (02:45→19:34)
[2024-09-04 05:19] LABS: Basophils Percent Auto 0.1 % (0.2-1.2); Hematocrit 30.2 % (42.0-52.0); Hemoglobin 9.4 g/dL (14.0-18.0); Immature Granulocyte Absolute 0.11 K/mm3 (0.00-0.031); Immature Granulocyte Percent A 0.8 % (0-0.5); Lymphocytes Absolute Auto 0.43 K/mm3 (0.9-3.2); Lymphocytes Percent Auto 3.1 % (18.3-44.2); Mean Corpuscular HGB Conc 31.1 g/dl (32-36); Mean Corpuscular Hemoglobin 26.1 pg (26-34); Mean Corpuscular Volume 83.9 fl (80-100); Mean Platelet Volume 9.7 fl (7.4-10.4); Monocytes Absolute Auto 0.3 K/mm3 (0.1-0.6); Monocytes Percent Auto 2.3 % (2.6-8.5); Neutrophils Percent Auto 93.7 % (45.5-73.1); Platelet Count Result 555 k/mm3 (150-375); Red Cell Distribution Width 14.7 % (11.5-14.5); White Blood Count 13.9 K/mm3 (4.5-10.0)
[2024-09-04 05:31] LABS: Alanine Aminotransferase 20 U/L (6-50); Albumin Level 2.8 g/dL (3.5-5.1); Alkaline Phosphatase 98 U/L (38-126); Anion Gap 9 mmol/L (4-12); Aspartate Amino Transferase 26 U/L (17-59); Bilirubin,Total 0.3 mg/dL (0.2-1.3); Blood Urea Nitrogen 47 mg/dL (9-20); Calcium 8.2 mg/dL (8.4-10.2); Carbon Dioxide 18 mmol/L (22-30); Chloride 104 mmol/L (98-107); Estimated CRCL calculation 17 ml/min; Estimated Glomerular Filt Rate 19; Glucose 324 mg/dL (65-110); Magnesium 1.8 mg/dL (1.6-2.3); Potassium 4.8 mmol/L (3.4-5.0); Sodium 131 mmol/L (137-145)
[2024-09-04 05:39] LABS: NT Pro B Type Natriuretic Pept 11400 pg/mL (19.9-100)
[2024-09-04 05:40] LABS: Band Neutrophils Percent 0 % (0-6); Crenated RBC 1+; Hypochromasia 1+; Ovalocytes 1+; Platelet Estimate Increased (Adequate); Schistocytes None Seen
[2024-09-04 06:26] LABS: Glucose Point of Care 308 mg/dl (65-105)
[2024-09-04] MEDS: INSULIN ASPART (*BKC) 100 UNITS/ML SUB-Q ×4 (06:27→16:41)
[2024-09-04 07:51] LABS: Glucose Point of Care 309 mg/dl (65-105)
--- NOTE | 2024-09-04 08:00 | P.PNIM_ITS ---
Progress Note: A&P Assessment and Plan (1) Chronic obstructive pulmonary disease: Code(s): J44.9 - Chronic obstructive pulmonary disease, unspecified Status: Acute Assessment and Plan: Patient with history of Chronic bronchitis started requiring 1 L supplemental oxygen to maintain 92% could be secondary to COPD had also been receiving fluids and fluid overload could be contributing factor * BNP increased from 6320 to 11,400. * Echocardiogram performed on 08/30 shows left ventricular systolic function greater than 70%. Patient has diastolic dysfunction. * CXR no infiltrate or effusion * gave 1x dose 20mg lasix * Discontinue PO prednisone due to hyperglycemia * Duonebs started * encourage incentive spirometer * Wean supplemental oxygen to maintain 92% * May need oxygen at discharge * Started on Augmentin (2) Aspiration pneumonia: Qualifiers: Aspiration pneumonia type: unspecified Laterality: unspecified laterality Lung location: unspecified part of lung Qualified Code(s): J69.0 - Pneumonitis due to inhalation of food and vomit Code(s): J69.0 - Pneumonitis due to inhalation of food and vomit Status: Acute Assessment and Plan: Nausea/vomiting for several days, initially improved with Zofran, Cough, shortness of breath increased since vomiting started. CT scan shows findings c onsistent with chronic bronchitis and aspiration. Patient passed barium swallow * Transition to oral Augmentin * continue Guaifenesin for cough * Level 7 diet regular with thin liquids * supplemental oxygen PRN maintain 92% (3) Acute on chronic renal failure: Code(s): N17.9 - Acute kidney failure, unspecified; N18.9 - Chronic kidney disease, unspecified Status: Acute Assessment and Plan: History of CKD, stage 3b-4, Currently increased BUN/Cr compared to prior result, Likely mild dehydration from nausea/vomiting as well as multiple episodes of diarrhea though increasing renal dysfunction patient dehydrated Cr bumped to 3.25 improved IV fluids close to baseline but bumped back up to 3.66 once IV fluids placed on hold Likely close to patient new baseline nephrology to evaluate for any further recommendations * Hold fluids until further instruction from Nephrology * f/U CXR: 09/01 No focal infiltrate or effusion. * Gave dose of Albumin * Patient follows with research laboratory specialist Sukhjinder with Dr. Lin Guerrero * consulted Nephrology appreciate any further recommendations * Avoid nephrotoxins if possible * Routine CMP monitoring GFR. * Monitor electrolytes especially potassium. * Antibiotic doses depending on creatinine clearance (4) Type 2 diabetes mellitus: Code(s): E11.9 - Type 2 diabetes mellitus without complications Status: Chronic Assessment and Plan: * Varsha SPARKS * SSI * currently holding [employer] * Started on Lantus 28 units HS (5) Paroxysmal atrial fibrillation: Code(s): I48.0 - Paroxysmal atrial fibrillation Status: Acute Assessment and Plan: Rate controlled * Not currently anticoagulated, need to inquire with family about this (6) Hypertension: Code(s): I10 - Essential (primary) hypertension Status: Chronic Assessment and Plan: * BP soft decreased coreg from 12.5 to 6.25 BID * BP per unit protocol (7) Adult failure to thrive: Code(s): R62.7 - Adult failure to thrive Status: Acute Assessment and Plan: Patient mildly confused, possible aspiration pneumonia, worsening renal dysfunction 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 Renal function worsened nephrology consulted waiting on Auth for placement to [facility] Subjective Date/time seen: 09/04/24 08:00 Interval history: Patient BNP has been increased from 6320 to 11,400. Echocardiogram performed on 05/21 shows left ventricular systolic function greater than 70%. Patient has diastolic dysfunction. Patient is on currently gentle fluid resuscitation due to GABRIELA on CKD. Stopped fluids for now.Will discuss with Nephrology for further management. Restarted Lantus 28 units HS. Patient is currently on moderate sliding scale will be escalated to high-dose sliding scale if needed. Discontinued prednisone. Given 1 time dose of Lantus 10 units now. Changed his diet to diabetic. Review of Systems Review of Systems: All systems reviewed & are unremarkable except as noted in HPI and below ROS unobtainable: Yes unobtainable due to mental status Exam Narrative: GENERAL: Well nourished, appears fatigued, cough but no respiratory distress HEAD: Normocephalic, atraumatic. ENT:? Mucous membranes moist. HEART: RRR Respiratory: productive cough, mild scattered wheezing ABDOMEN: Soft, nontender, nondistended. EXTREMITIES: Normal range of motion. No peripheral edema. SKIN: Warm dry normal color NEURO: Awake, alert, mildly confused but pleasant PSYCH: Normal affect Objective Data Vital Signs Vital Signs: Vital Signs - 24 hr 09/03/24 08:38 09/03/24 08:38 09/03/24 08:52 Temperature Pulse Rate 90 88 Respiratory Rate 20 20 Blood Pressure Pulse Oximetry 96 Oxygen Delivery Room Air Fraction of Inspired Oxygen 09/03/24 09:02 09/03/24 09:03 09/03/24 09:03 Temperature 97.6 F Pulse Rate 92 87 87 Respiratory Rate 20 20 Blood Pressure 132/70 Pulse Oximetry 98 98 Oxygen Delivery Room Air Fraction of Inspired Oxygen 09/03/24 13:45 09/03/24 14:00 09/03/24 14:10 Temperature 97.1 F L Pulse Rate 90 80 84 Respiratory Rate 16 20 18 Blood Pressure 127/62 Pulse Oximetry 98 Oxygen Delivery Fraction of Inspired Oxygen 09/03/24 19:30 09/03/24 20:00 09/03/24 20:07 Temperature 97.7 F Pulse Rate 88 88 Respiratory Rate 18 18 Blood Pressure 138/73 Pulse Oximetry 97 Oxygen Delivery Room Air Fraction of Inspired Oxygen 09/03/24 20:18 09/03/24 20:23 09/03/24 20:34 Temperature Pulse Rate 88 88 Respiratory Rate 18 Blood Pressure Pulse Oximetry 97 Oxygen Delivery Room Air Fraction of Inspired Oxygen 09/04/24 02:45 09/04/24 02:55 09/04/24 03:26 Temperature 97.7 F Pulse Rate 76 76 93 Respiratory Rate 22 H 22 H 18 Blood Pressure 136/78 Pulse Oximetry 95 Oxygen Delivery Fraction of Inspired Oxygen 09/04/24 07:50 09/04/24 07:51 09/04/24 07:58 Temperature Pulse Rate 72 73 Respiratory Rate 20 20 Blood Pressure Pulse Oximetry 93 Oxygen Delivery Room Air Fraction of Inspired Oxygen Intake/Output Intake/Output: Intake & Output 09/01/24 09/02/24 09/03/24 09/04/24 23:59 23:59 23:59 23:59 Intake Total 3875.0 940 820 490 Output Total 850 700 Balance 3875.0 940 30 210 Meds/Results Medications: Active Medications Generic Name Dose Route Start Last Admin Trade Name Freq PRN Reason Stop Dose Admin Acetaminophen 650 mg 09/01/24 04:45 09/01/24 21:26 Acetaminophen 325 Mg Tablet PO 650 mg Q4H PRN Administration Fever OR PAIN Albuterol 2 puff 08/29/24 23:55 09/01/24 21:44 Albuterol Sulfate (*Sp) Aerosol 1 Puff INHALATION 2 puff Q6HRT PRN Administration shortness of breath or wheezing Albuterol/Ipratropium 3 ml 09/02/24 02:00 09/04/24 07:49 Ipratropium 0.5 Mg/Albuterol Sulfate 2.5 Mg Ampul.Neb 3 Ml INHALATION 3 ml Q6HRT PJ Administration Amoxicillin/Clavulanate Potassium 1 tablet 08/31/24 09:00 09/03/24 20:24 Amoxicillin/Clavulanate K 875-125 Mg Tab PO 1 tablet Q12HR PJ Administration Carvedilol 6.25 mg 09/01/24 09:00 09/03/24 20:23 Carvedilol 6.25 Mg Tablet PO 6.25 mg Q12HR PJ Administration Dextrose 12.5 gm 09/03/24 12:30 Dextrose 50% 25 Gm/50 Ml Syringe IV PUSH PRN PRN Hypoglycemia Protocol Dorzolamide/Timolol 1 drop 08/30/24 09:00 09/03/24 20:24 Dorzolamide/Timolol Ophth Sarah 10 Ml Bottle EACH EYE 1 drop Q12HR PJ Administration Glucagon 1 mg 09/03/24 12:30 Glucagon For Inj 1 Mg Vial IM PRN PRN Hypoglycemia Protocol Glucose 15 gm 09/03/24 12:30 Glucose Oral Gel 15 Gm Of Glucse In 37.5 Gm Tube PO PRN PRN Hypoglycemia Protocol Guaifenesin 600 mg 08/30/24 09:00 09/03/24 20:24 Guaifenesin 12 Hr 600 Mg Tabcr PO 600 mg Q12HR PJ Administration Sodium Chloride 1,000 mls @ 100 mls/hr 08/31/24 07:30 09/01/24 21:29 Normal Saline Iv IV CONT 100 mls/hr .Q10H PJ Administration Dextrose 1,000 mls @ 100 mls/hr 09/03/24 12:30 Dextrose 5% 1,000 Ml IVPB PRN PRN Hypoglycemia Protocol Insulin Aspart 3 - 6 units 09/04/24 08:00 Insulin Aspart (*Bkc) 100 Units/Ml SUB-Q TIDWM PJ Protocol Loperamide HCl 2 mg 09/01/24 07:40 09/01/24 10:19 Loperamide Hcl 2 Mg Capsule PO 2 mg PRN PRN Administration Diarrhea Ondansetron HCl 4 mg 08/29/24 19:39 Ondansetron Inj 4 Mg/2 Ml Vial IV PUSH Q4H PRN Nausea Pantoprazole Sodium 40 mg 08/30/24 09:00 09/03/24 09:03 Pantoprazole 40 Mg Tablet PO 40 mg DAILY PJ Administration Pravastatin Sodium 20 mg 08/30/24 21:00 09/03/24 20:24 Pravastatin Sodium 20 Mg Tablet PO 20 mg HS PJ Administration Prednisone 40 mg 09/02/24 13:40 09/03/24 09:03 Prednisone 20 Mg Tablet PO 40 mg DAILY@0800 PJ Administration Sitagliptin Phosphate 25 mg 08/30/24 09:00 09/03/24 09:03 Sitagliptin Phosphate 25 Mg Tablet PO 25 mg DAILY PJ Administration Radiology Results: ITS Impressions Chest CT 08/29/24 19:06 IMPRESSION: Mild chronic bronchial wall thickening may reflect a component of bronchitis. Consider aspiration in the differential. Mild chronic interstitial lung disease in a UIP pattern, with a patulous esophagus, correlate for history of scleroderma. Ascending thoracic aortic ectasia. Modified Barium Swallow 08/30/24 15:03 IMPRESSION: Patient tolerated regular consistency oral feedings in the upright position. Please correlate with speech pathologist findings and specific feeding recommendations. Renal Ultrasound 09/02/24 11:44 IMPRESSION: 1. 2.7 cm left renal cyst. Otherwise normal kidneys without hydronephrosis. Chest X-Ray 09/04/24 06:34 IMPRESSION: Mild pulmonary vascular congestion with a small right-sided pleural effusion, without focal infiltrate. Labs Labs: Laboratory Results - last 24 hr 09/03/24 09/03/24 09/03/24 07:48 11:45 16:44 WBC RBC Hgb Hct MCV MCH MCHC RDW Plt Count MPV Immature Gran % (Auto) Neut % (Auto) Lymph % (Auto) [place] % (Auto) Eos % (Auto) Baso % (Auto) Lymph # (Auto) [place] # (Auto) Eos # (Auto) Baso # (Auto) Abs Immat Gran (auto) Absolute Neuts (auto) Absolute Nucleated RBC Band Neutrophils % Nucleated RBC % Platelet Estimate Hypochromasia Ovalocytes Crenated Cell Schistocytes Sodium Potassium Chloride Carbon Dioxide Anion Gap BUN Creatinine Estim Creat Clear Calc Estimated GFR Glucose POC Capillary Glucose 261 H 333 H 341 H Calcium Magnesium Total Bilirubin AST ALT Alkaline Phosphatase NT-Pro-B Natriuret Pep Total Protein Albumin 09/03/24 09/04/24 09/04/24 19:34 04:51 06:20 WBC 13.9 H RBC 3.60 L Hgb 9.4 L Hct 30.2 L MCV 83.9 MCH 26.1 MCHC 31.1 L RDW 14.7 H Plt Count 555 H MPV 9.7 Immature Gran % (Auto) 0.8 H Neut % (Auto) 93.7 H Lymph % (Auto) 3.1 L [place] % (Auto) 2.3 L Eos % (Auto) 0.0 Baso % (Auto) 0.1 L Lymph # (Auto) 0.43 L [place] # (Auto) 0.3 Eos # (Auto) 0.0 Baso # (Auto) 0.0 Abs Immat Gran (auto) 0.11 H Absolute Neuts (auto) 13.0 H Absolute Nucleated RBC 0.000 Band Neutrophils % 0 Nucleated RBC % 0.0 Platelet Estimate Increased Hypochromasia 1+ Ovalocytes 1+ Crenated Cell 1+ Schistocytes None seen Sodium 131 L Potassium 4.8 Chloride 104 Carbon Dioxide 18 L Anion Gap 9 BUN 47 H Creatinine 3.22 H Estim Creat Clear Calc 17 Estimated GFR 19 L Glucose 324 H POC Capillary Glucose 336 H 308 H Calcium 8.2 L Magnesium 1.8 Total Bilirubin 0.3 AST 26 ALT 20 Alkaline Phosphatase 98 NT-Pro-B Natriuret Pep 19322 H Total Protein 5.0 L Albumin 2.8 L 09/04/24 07:36 WBC RBC Hgb Hct MCV MCH MCHC RDW Plt Count MPV Immature Gran % (Auto) Neut % (Auto) Lymph % (Auto) [place] % (Auto) Eos % (Auto) Baso % (Auto) Lymph # (Auto) [place] # (Auto) Eos # (Auto) Baso # (Auto) Abs Immat Gran (auto) Absolute Neuts (auto) Absolute Nucleated RBC Band Neutrophils % Nucleated RBC % Platelet Estimate Hypochromasia Ovalocytes Crenated Cell Schistocytes Sodium Potassium Chloride Carbon Dioxide Anion Gap BUN Creatinine Estim Creat Clear Calc Estimated GFR Glucose POC Capillary Glucose 309 H Calcium Magnesium Total Bilirubin AST ALT Alkaline Phosphatase NT-Pro-B Natriuret Pep Total Protein Albumin Quality VTE Prophylaxis VTE prophylaxis: mechanical ordered Hospitalist MIPS Advance Care Plan I have confirmed that the patient's Advanced Care Plan is present, code status is documented, or surrogate decision maker is listed in patient medical record.: Yes Medication Reconciliation I have utilized all available resources to obtain, update and review the patients current medications (includes all prescriptions, OTC, herbals, cannabis, and nutritional supplements).: Yes
[2024-09-04] MEDS: guaiFENesin 12 HR 600 MG TABCR PO ×2 (08:05→20:29)
[2024-09-04] MEDS: DORZOLAMIDE/TIMOLOL OPHTH SOL 10 ML BOTTLE 1 DROP EACH EYE ×2 (08:05→20:31)
[2024-09-04] MEDS: PANTOPRAZOLE 40 MG TABLET PO (08:05)
[2024-09-04] MEDS: carvediloL 6.25 MG TABLET PO ×2 (08:05→20:30)
[2024-09-04] MEDS: SITagliptin PHOSPHATE 25 MG TABLET PO (08:05)
[2024-09-04] MEDS: AMOXICILLIN/CLAVULANATE K 875-125 MG TAB 1 TABLET PO ×2 (08:05→20:29)
[2024-09-04] MEDS: INSULIN GLARGINE (*BKC) 100 UNITS/ML 10 UNITS SUB-Q (08:19)
--- NOTE | 2024-09-04 11:25 | P.PNNP_ITS ---
Progress Note: A&P Assessment and Plan (1) Acute kidney injury: Code(s): N17.9 - Acute kidney failure, unspecified Status: Acute Assessment and Plan: * slow improvement noted * as noted by labs during this admission: * admitted with a creatinine of 2.6mg/dl * fluctuated from 2.56 -> 3.26 -> 2.85 (from 08/30 - 09/01) * then up to 3.66mg/dl (on 09/02) * suspect multifactorial etioilogy: * prerenal factors (nausea/vomiting on admission) * concurrent SARAH-I use prior to admission * relative hypotension on admission (~ 90s systolic) * infection (aspiration pneumonia) * COPD exacerbation * other(?) * evaluation to date noted: * renal ultrasund without obstruction * urine electrolytes prerenal * urine eosinophils negative * CPK normal * mild proteinuria * was on IVFs previously but stopped due to concerns of volume overload/elevated BNP * follow trend of repeat labs and UOP (2) Stage 4 chronic kidney disease: Code(s): N18.4 - Chronic kidney disease, stage 4 (severe) Status: Chronic Assessment and Plan: * baseline creatinine runs ~ 1.9 - 2.3mg/dl since 2021 * however, has fluctuated to extremes with recent admissions/hospitalizations at [facility] in the last couple of months... * outpatient labs since 2024 show creatinine seems to be running closer to 2.2 - 2.7mg/dl * last outpatient creatinine was 2.66mg/dl on 07/18/24 * hence, there maybe a component of kidney disease progression... * CKD is secondary to HTN, diabetes, vascular disease, and age-related change * follows with [facility] (Dr. Lin Guerrero) (3) Aspiration pneumonia: Qualifiers: Aspiration pneumonia type: unspecified Laterality: unspecified laterality Lung location: unspecified part of lung Qualified Code(s): J69.0 - Pneumonitis due to inhalation of food and vomit Code(s): J69.0 - Pneumonitis due to inhalation of food and vomit Status: Acute Assessment and Plan: * CT scan findings consistent with chronic bronchitis and aspiration * however, he passed barium swallow evaluation * on antibiotics * off supplemental oxygen (4) Chronic obstructive pulmonary disease: Code(s): J44.9 - Chronic obstructive pulmonary disease, unspecified Status: Acute Assessment and Plan: * mild exacerbation possibly secondary to #3 * CXR negative * CT chest findings noted * weaned off supplemental oxygen * on steroids * nebulizer treatments PRN * incentive spirometry (5) Anemia: Code(s): D64.9 - Anemia, unspecified Status: Acute Assessment and Plan: * presumably related to GABRIELA, CKD and acute illness * follow trend of H/H (6) Hypertension: Code(s): I10 - Essential (primary) hypertension Status: Chronic Assessment and Plan: * reasonable control at this time * running soft at times * off SARAH-I due to #1 * follow trend of hemodynamics (7) Type 2 diabetes mellitus: Code(s): E11.9 - Type 2 diabetes mellitus without complications Status: Chronic Assessment and Plan: * follow accu-cheks * glycemic control per hospitalist (8) Adult failure to thrive: Code(s): R62.7 - Adult failure to thrive Status: Acute Assessment and Plan: * deconditioned state due to several issues: * recent hospitalizations * acute infection (aspiration pneumonia) * fluctuating renal function * metastatic prostate cancer * PT/OT as tolerated * possible need for placement(?) Will continue to follow. L Subjective Date/time seen: 09/04/24 11:25 Interval history: Follow-up for acute kidney injury/acute renal failure on chronic kidney disease. No apparent distress noted at the time of my visit; resting comfortably when seen; tolerated trial of IVFs yesterday but CXR this AM noted so no further IVFs administered but respiratory status/breathing remains stable; no other issues/events overnight or earlier this morning. Exam 2 Narrative: General: elderly but WD/WN male in NAD Heart: normal S1 and S2; no rub Lungs: coarse breath sounds Abdomen: soft, nontender, nondistended, positive bowel sounds Extremities: no cyanosis or clubbing; no edema Skin: warm and intact Objective Data Vital Signs Vital Signs: Vital Signs Temp Pulse Resp BP Pulse Ox O2 Del Method FiO2 09/04/24 11:23 75 20 09/04/24 08:05 98 18 96 Room Air 24 09/04/24 08:05 98 09/04/24 08:03 97.5 F L 99 18 127/65 96 09/04/24 07:58 73 20 09/04/24 07:51 72 20 09/04/24 07:50 93 Room Air 09/04/24 03:26 97.7 F 93 18 136/78 95 09/04/24 02:55 76 22 H 09/04/24 02:45 76 22 H 09/03/24 20:34 97 Room Air 09/03/24 20:23 88 09/03/24 20:18 88 18 09/03/24 20:07 88 18 09/03/24 20:00 Room Air 09/03/24 19:30 97.7 F 88 18 138/73 97 Intake/Output Intake/Output: Intake & Output 09/01/24 09/02/24 09/03/24 09/04/24 23:59 23:59 23:59 23:59 Intake Total 3875.0 940 820 970 Output Total 850 1475 Balance 3875.0 940 30 505 Meds/Results Medications: Active Medications Generic Name Dose Route Start Last Admin Trade Name Freq PRN Reason Stop Dose Admin Acetaminophen 650 mg 09/01/24 04:45 09/01/24 21:26 Acetaminophen 325 Mg Tablet PO 650 mg Q4H PRN Administration Fever OR PAIN Albuterol 2 puff 08/29/24 23:55 09/01/24 21:44 Albuterol Sulfate (*Sp) Aerosol 1 Puff INHALATION 2 puff Q6HRT PRN Administration shortness of breath or wheezing Albuterol/Ipratropium 3 ml 09/02/24 02:00 09/04/24 13:31 Ipratropium 0.5 Mg/Albuterol Sulfate 2.5 Mg Ampul.Neb 3 Ml INHALATION 3 ml Q6HRT PJ Administration Amoxicillin/Clavulanate Potassium 1 tablet 08/31/24 09:00 09/04/24 08:05 Amoxicillin/Clavulanate K 875-125 Mg Tab PO 1 tablet Q12HR PJ Administration Benzocaine 1 lozenge 09/04/24 15:57 Benzocaine/Menthol (*Bkc) 18 Ea Lozenge PO PRN PRN Sore Throat Carvedilol 6.25 mg 09/01/24 09:00 09/04/24 08:05 Carvedilol 6.25 Mg Tablet PO 6.25 mg Q12HR PJ Administration Dextrose 12.5 gm 09/03/24 12:30 Dextrose 50% 25 Gm/50 Ml Syringe IV PUSH PRN PRN Hypoglycemia Protocol Dorzolamide/Timolol 1 drop 08/30/24 09:00 09/04/24 08:05 Dorzolamide/Timolol Ophth Sarah 10 Ml Bottle EACH EYE 1 drop Q12HR PJ Administration Glucagon 1 mg 09/03/24 12:30 Glucagon For Inj 1 Mg Vial IM PRN PRN Hypoglycemia Protocol Glucose 15 gm 09/03/24 12:30 Glucose Oral Gel 15 Gm Of Glucse In 37.5 Gm Tube PO PRN PRN Hypoglycemia Protocol Guaifenesin 600 mg 08/30/24 09:00 09/04/24 08:05 Guaifenesin 12 Hr 600 Mg Tabcr PO 600 mg Q12HR PJ Administration Sodium Chloride 1,000 mls @ 100 mls/hr 08/31/24 07:30 09/01/24 21:29 Normal Saline Iv IV CONT 100 mls/hr .Q10H PJ Administration Dextrose 1,000 mls @ 100 mls/hr 09/03/24 12:30 Dextrose 5% 1,000 Ml IVPB PRN PRN Hypoglycemia Protocol Insulin Aspart 3 - 6 units 09/04/24 08:00 09/04/24 11:46 Insulin Aspart (*Bkc) 100 Units/Ml SUB-Q 5 units TIDWM PJ Administration Protocol Insulin Glargine 28 units 09/04/24 21:00 Insulin Glargine (*Bkc) 100 Units/Ml SUB-Q QHS PJ Loperamide HCl 2 mg 09/01/24 07:40 09/01/24 10:19 Loperamide Hcl 2 Mg Capsule PO 2 mg PRN PRN Administration Diarrhea Ondansetron HCl 4 mg 08/29/24 19:39 Ondansetron Inj 4 Mg/2 Ml Vial IV PUSH Q4H PRN Nausea Pantoprazole Sodium 40 mg 08/30/24 09:00 09/04/24 08:05 Pantoprazole 40 Mg Tablet PO 40 mg DAILY PJ Administration Pravastatin Sodium 20 mg 08/30/24 21:00 09/03/24 20:24 Pravastatin Sodium 20 Mg Tablet PO 20 mg HS PJ Administration Sitagliptin Phosphate 25 mg 08/30/24 09:00 09/04/24 08:05 Sitagliptin Phosphate 25 Mg Tablet PO 25 mg DAILY PJ Administration Radiology Results: ITS Impressions Chest CT 08/29/24 19:06 IMPRESSION: Mild chronic bronchial wall thickening may reflect a component of bronchitis. Consider aspiration in the differential. Mild chronic interstitial lung disease in a UIP pattern, with a patulous esophagus, correlate for history of scleroderma. Ascending thoracic aortic ectasia. Modified Barium Swallow 08/30/24 15:03 IMPRESSION: Patient tolerated regular consistency oral feedings in the upright position. Please correlate with speech pathologist findings and specific feeding recommendations. Renal Ultrasound 09/02/24 11:44 IMPRESSION: 1. 2.7 cm left renal cyst. Otherwise normal kidneys without hydronephrosis. Chest X-Ray 09/04/24 06:34 IMPRESSION: Mild pulmonary vascular congestion with a small right-sided pleural effusion, without focal infiltrate. Labs Labs: Laboratory Tests 09/04/24 04:51 09/04/24 04:51 Calcium 8.2 L Magnesium 1.8 Total Bilirubin 0.3 AST 26 ALT 20 Alkaline Phosphatase 98 NT-Pro-B Natriuret Pep 31760 H Total Protein 5.0 L Albumin 2.8 L Microbiology 08/29/24 20:11 Blood Blood Culture - Final 08/29/24 20:11 Blood Blood Culture - Final
[2024-09-04 11:46] LABS: Glucose Point of Care 313 mg/dl (65-105)
[2024-09-04] MEDS: BENZOCAINE/MENTHOL (*BKC) 18 EA LOZENGE 1 LOZENGE PO (16:35)
[2024-09-04 16:50] LABS: Glucose Point of Care 255 mg/dl (65-105)
[2024-09-04] MEDS: INSULIN GLARGINE (*BKC) 100 UNITS/ML 28 UNITS SUB-Q (20:24)
[2024-09-04] MEDS: PRAVASTATIN SODIUM 20 MG TABLET PO (20:30)
[2024-09-04 20:47] LABS: Glucose Point of Care 251 mg/dl (65-105)
[2024-09-05] VITALS (7 sets, daily range): BP systolic 119–131; BP diastolic 52–72; PULSE 80–97; RESP 18–20; TEMP 36.6–36.7; O2SAT 96–98
[2024-09-05] MEDS: IPRATROPIUM 0.5 MG/ALBUTEROL SULFATE 2.5 MG AMPUL.NEB 3 ML INHALATION ×2 (01:54→07:54)
[2024-09-05 05:36] LABS: Basophils Percent Auto 0.1 % (0.2-1.2); Eosinophils Percent Auto 0.2 % (0-4.4); Hematocrit 30.4 % (42.0-52.0); Hemoglobin 9.3 g/dL (14.0-18.0); Immature Granulocyte Absolute 0.13 K/mm3 (0.00-0.031); Lymphocytes Absolute Auto 0.96 K/mm3 (0.9-3.2); Lymphocytes Percent Auto 7.1 % (18.3-44.2); Mean Corpuscular HGB Conc 30.6 g/dl (32-36); Mean Corpuscular Hemoglobin 26.1 pg (26-34); Mean Corpuscular Volume 85.2 fl (80-100); Mean Platelet Volume 9.5 fl (7.4-10.4); Monocytes Absolute Auto 0.9 K/mm3 (0.1-0.6); Monocytes Percent Auto 6.6 % (2.6-8.5); Neutrophils Absolute Auto 11.4 K/mm3 (1.3-6.7); Platelet Count Result 628 k/mm3 (150-375); Red Blood Count 3.57 M/mm3 (4.6-6.20); White Blood Count 13.4 K/mm3 (4.5-10.0)
[2024-09-05 05:51] LABS: Alanine Aminotransferase 18 U/L (6-50); Alkaline Phosphatase 99 U/L (38-126); Anion Gap 9 mmol/L (4-12); Aspartate Amino Transferase 21 U/L (17-59); Bilirubin,Total 0.4 mg/dL (0.2-1.3); Blood Urea Nitrogen 55 mg/dL (9-20); Calcium 8.4 mg/dL (8.4-10.2); Carbon Dioxide 19 mmol/L (22-30); Chloride 109 mmol/L (98-107); Estimated CRCL calculation 18 ml/min; Estimated Glomerular Filt Rate 20; Glucose 143 mg/dL (65-110); Magnesium 1.7 mg/dL (1.6-2.3); Potassium 4.3 mmol/L (3.4-5.0); Sodium 137 mmol/L (137-145)
[2024-09-05 08:07] LABS: Glucose Point of Care 120 mg/dl (65-105)
[2024-09-05] MEDS: carvediloL 6.25 MG TABLET PO (08:22)
[2024-09-05] MEDS: SITagliptin PHOSPHATE 25 MG TABLET PO (08:23)
[2024-09-05] MEDS: AMOXICILLIN/CLAVULANATE K 875-125 MG TAB 1 TABLET PO (08:23)
[2024-09-05] MEDS: DORZOLAMIDE/TIMOLOL OPHTH SOL 10 ML BOTTLE 1 DROP EACH EYE (08:23)
[2024-09-05] MEDS: PANTOPRAZOLE 40 MG TABLET PO (08:23)
[2024-09-05] MEDS: guaiFENesin 12 HR 600 MG TABCR PO (08:23)
--- NOTE | 2024-09-05 10:05 | PM.PNNEP ---
Progress Note: A&P Assessment and Plan (1) Acute kidney injury: Code(s): N17.9 - Acute kidney failure, unspecified Status: Acute Assessment and Plan: slow improvement noted as noted by labs during this admission: admitted with a creatinine of 2.6mg/dl fluctuated from 2.56 -> 3.26 -> 2.85 (from 08/30 - 09/01) then up to 3.66mg/dl (on 09/02) suspect multifactorial etioilogy: prerenal factors (nausea/vomiting on admission) concurrent SARAH-I use prior to admission relative hypotension on admission (~ 90s systolic) infection (aspiration pneumonia) COPD exacerbation other(?) evaluation to date noted: renal ultrasund without obstruction urine electrolytes prerenal urine eosinophils negative CPK normal mild proteinuria was on IVFs previously but stopped due to concerns of volume overload/elevated BNP follow trend of repeat labs and UOP (2) Stage 4 chronic kidney disease: Code(s): N18.4 - Chronic kidney disease, stage 4 (severe) Status: Chronic Assessment and Plan: baseline creatinine runs ~ 1.9 - 2.3mg/dl since 2021 however, has fluctuated to extremes with recent admissions/hospitalizations at [facility] in the last couple of months... outpatient labs since 2024 show creatinine seems to be running closer to 2.2 - 2.7mg/dl last outpatient creatinine was 2.66mg/dl on 07/18/24 hence, there maybe a component of kidney disease progression... CKD is secondary to HTN, diabetes, vascular disease, and age-related change follows with [facility] (Dr. Lin Guerrero) (3) Aspiration pneumonia: Qualifiers: Aspiration pneumonia type: unspecified Laterality: unspecified laterality Lung location: unspecified part of lung Qualified Code(s): J69.0 - Pneumonitis due to inhalation of food and vomit Code(s): J69.0 - Pneumonitis due to inhalation of food and vomit Status: Acute Assessment and Plan: CT scan findings consistent with chronic bronchitis and aspiration however, he passed barium swallow evaluation on antibiotics off supplemental oxygen (4) Chronic obstructive pulmonary disease: Code(s): J44.9 - Chronic obstructive pulmonary disease, unspecified Status: Acute Assessment and Plan: mild exacerbation possibly secondary to #[address] chest findings noted weaned off supplemental oxygen on steroids nebulizer treatments PRN incentive spirometry (5) Anemia: Code(s): D64.9 - Anemia, unspecified Status: Acute Assessment and Plan: presumably related to GABRIELA, CKD and acute illness follow trend of H/H (6) Hypertension: Code(s): I10 - Essential (primary) hypertension Status: Chronic Assessment and Plan: reasonable control at this time running soft at times off SARAH-I due to #1 follow trend of hemodynamics (7) Type 2 diabetes mellitus: Code(s): E11.9 - Type 2 diabetes mellitus without complications Status: Chronic Assessment and Plan: follow accu-cheks glycemic control per hospitalist (8) Adult failure to thrive: Code(s): R62.7 - Adult failure to thrive Status: Acute Assessment and Plan: deconditioned state due to several issues: recent hospitalizations acute infection (aspiration pneumonia) fluctuating renal function metastatic prostate cancer PT/OT as tolerated possible need for placement(?) Not opposed to discharge from renal perspective if otherwise medically stable -- he can follow-up with [facility] for ongoing CKD management. Will continue to follow. Subjective Date/time seen: 09/05/24 10:05 Interval history: Follow-up for acute kidney injury/acute renal failure on chronic kidney disease. Renal function/creatinine continues to improve as noted by trend of labs; no apparent distress noted at the time of my visit; overall, he states that he is feeling reasonably well; no issues/events overnight or earlier this monr. Exam Narrative: General: elderly but WD/WN male in NAD Heart: normal S1 and S2; no rub Lungs: coarse breath sounds Abdomen: soft, nontender, nondistended, positive bowel sounds Extremities: no cyanosis or clubbing; no edema Skin: no rash or nodules Objective Data Vital Signs Vital Signs: Vital Signs Temp Pulse Resp BP Pulse Ox O2 Del Method FiO2 09/05/24 08:22 80 18 96 Room Air 24 09/05/24 08:22 80 09/05/24 08:21 98.1 F 80 18 131/72 96 09/05/24 08:03 82 20 09/05/24 07:50 84 20 09/05/24 05:35 97.9 F 87 20 119/52 L 98 09/05/24 02:07 95 20 09/05/24 01:54 97 20 09/04/24 20:30 100 09/04/24 20:28 98.2 F 100 20 148/87 H 96 09/04/24 19:46 90 20 09/04/24 19:36 97 96 Room Air 09/04/24 19:34 88 20 Intake/Output Intake/Output: Intake & Output 09/02/24 09/03/24 09/04/24 09/05/24 23:59 23:59 23:59 23:59 Intake Total 751 681 6374 720 Output Total 850 1600 1000 Balance 940 -30 210 -280 Meds/Results Medications: Active Medications Generic Name Dose Route Start Trade Name Freq PRN Reason Stop Acetaminophen 650 mg 09/01/24 04:45 Acetaminophen 325 Mg Tablet PO Q4H PRN Fever OR PAIN Albuterol 2 puff 08/29/24 23:55 Albuterol Sulfate (*Sp) Aerosol 1 Puff INHALATION Q6HRT PRN shortness of breath or wheezing Albuterol/Ipratropium 3 ml 09/02/24 02:00 Ipratropium 0.5 Mg/Albuterol Sulfate 2.5 Mg Ampul.Neb 3 Ml INHALATION Q6HRT [facility] Amoxicillin/Clavulanate Potassium 1 tablet 08/31/24 09:00 Amoxicillin/Clavulanate K 875-125 Mg Tab PO Q12HR [facility] Benzocaine 1 lozenge 09/04/24 15:57 Benzocaine/Menthol (*Bkc) 18 Ea Lozenge PO PRN PRN Sore Throat Carvedilol 6.25 mg 09/01/24 09:00 Carvedilol 6.25 Mg Tablet PO Q12HR [facility] Dextrose 12.5 gm 09/03/24 12:30 Dextrose 50% 25 Gm/50 Ml Syringe IV PUSH PRN PRN Hypoglycemia Protocol Dorzolamide/Timolol 1 drop 08/30/24 09:00 Dorzolamide/Timolol Ophth Sarah 10 Ml Bottle EACH EYE Q12HR [facility] Glucagon 1 mg 09/03/24 12:30 Glucagon For Inj 1 Mg Vial IM PRN PRN Hypoglycemia Protocol Glucose 15 gm 09/03/24 12:30 Glucose Oral Gel 15 Gm Of Glucse In 37.5 Gm Tube PO PRN PRN Hypoglycemia Protocol Guaifenesin 600 mg 08/30/24 09:00 Guaifenesin 12 Hr 600 Mg Tabcr PO Q12HR PJ Sodium Chloride 1,000 mls @ 100 mls/hr 08/31/24 07:30 Normal Saline Iv IV CONT .Q10H PJ Dextrose 1,000 mls @ 100 mls/hr 09/03/24 12:30 Dextrose 5% 1,000 Ml IVPB PRN PRN Hypoglycemia Protocol Insulin Aspart 3 - 6 units 09/04/24 08:00 Insulin Aspart (*Bkc) 100 Units/Ml SUB-Q TIDWM PJ Protocol Insulin Glargine 28 units 09/04/24 21:00 Insulin Glargine (*Bkc) 100 Units/Ml SUB-Q QHS PJ Loperamide HCl 2 mg 09/01/24 07:40 Loperamide Hcl 2 Mg Capsule PO PRN PRN Diarrhea Ondansetron HCl 4 mg 08/29/24 19:39 Ondansetron Inj 4 Mg/2 Ml Vial IV PUSH Q4H PRN Nausea Pantoprazole Sodium 40 mg 08/30/24 09:00 Pantoprazole 40 Mg Tablet PO DAILY PJ Pravastatin Sodium 20 mg 08/30/24 21:00 Pravastatin Sodium 20 Mg Tablet PO HS [facility] Sitagliptin Phosphate 25 mg 08/30/24 09:00 Sitagliptin Phosphate 25 Mg Tablet PO DAILY [facility] Radiology Results: ITS Impressions Chest CT 08/29/24 19:06 IMPRESSION: Mild chronic bronchial wall thickening may reflect a component of bronchitis. Consider aspiration in the differential. Mild chronic interstitial lung disease in a UIP pattern, with a patulous esophagus, correlate for history of scleroderma. Ascending thoracic aortic ectasia. Modified Barium Swallow 08/30/24 15:03 IMPRESSION: Patient tolerated regular consistency oral feedings in the upright position. Please correlate with speech pathologist findings and specific feeding recommendations. Renal Ultrasound 09/02/24 11:44 IMPRESSION: 1. 2.7 cm left renal cyst. Otherwise normal kidneys without hydronephrosis. Chest X-Ray 09/04/24 06:34 IMPRESSION: Mild pulmonary vascular congestion with a small right-sided pleural effusion, without focal infiltrate. Labs Labs: Laboratory Tests 09/05/24 05:16 09/05/24 05:16 Calcium 8.4 Magnesium 1.7 Iron 27 L TIBC 238 L % Saturation 11 L Ferritin 76.60 Total Bilirubin 0.4 AST 21 ALT 18 Alkaline Phosphatase 99 Total Protein 6.0 L Albumin 3.0 L
--- NOTE | 2024-09-05 10:05 | P.PNNP_ITS ---
Progress Note: A&P Assessment and Plan (1) Acute kidney injury: Code(s): N17.9 - Acute kidney failure, unspecified Status: Acute Assessment and Plan: * slow improvement noted * as noted by labs during this admission: * admitted with a creatinine of 2.6mg/dl * fluctuated from 2.56 -> 3.26 -> 2.85 (from 08/30 - 09/01) * then up to 3.66mg/dl (on 09/02) * suspect multifactorial etioilogy: * prerenal factors (nausea/vomiting on admission) * concurrent SARAH-I use prior to admission * relative hypotension on admission (~ 90s systolic) * infection (aspiration pneumonia) * COPD exacerbation * other(?) * evaluation to date noted: * renal ultrasund without obstruction * urine electrolytes prerenal * urine eosinophils negative * CPK normal * mild proteinuria * was on IVFs previously but stopped due to concerns of volume overload/elevated BNP * follow trend of repeat labs and UOP (2) Stage 4 chronic kidney disease: Code(s): N18.4 - Chronic kidney disease, stage 4 (severe) Status: Chronic Assessment and Plan: * baseline creatinine runs ~ 1.9 - 2.3mg/dl since 2021 * however, has fluctuated to extremes with recent admissions/hospitalizations at [facility] in the last couple of months... * outpatient labs since 2024 show creatinine seems to be running closer to 2.2 - 2.7mg/dl * last outpatient creatinine was 2.66mg/dl on 07/18/24 * hence, there maybe a component of kidney disease progression... * CKD is secondary to HTN, diabetes, vascular disease, and age-related change * follows with [facility] (Dr. Lin Guerrero) (3) Aspiration pneumonia: Qualifiers: Aspiration pneumonia type: unspecified Laterality: unspecified laterality Lung location: unspecified part of lung Qualified Code(s): J69.0 - Pneumonitis due to inhalation of food and vomit Code(s): J69.0 - Pneumonitis due to inhalation of food and vomit Status: Acute Assessment and Plan: * CT scan findings consistent with chronic bronchitis and aspiration * however, he passed barium swallow evaluation * on antibiotics * off supplemental oxygen (4) Chronic obstructive pulmonary disease: Code(s): J44.9 - Chronic obstructive pulmonary disease, unspecified Status: Acute Assessment and Plan: * mild exacerbation possibly secondary to #3 * CXR negative * CT chest findings noted * weaned off supplemental oxygen * on steroids * nebulizer treatments PRN * incentive spirometry (5) Anemia: Code(s): D64.9 - Anemia, unspecified Status: Acute Assessment and Plan: * presumably related to GABRIELA, CKD and acute illness * follow trend of H/H (6) Hypertension: Code(s): I10 - Essential (primary) hypertension Status: Chronic Assessment and Plan: * reasonable control at this time * running soft at times * off SARAH-I due to #1 * follow trend of hemodynamics (7) Type 2 diabetes mellitus: Code(s): E11.9 - Type 2 diabetes mellitus without complications Status: Chronic Assessment and Plan: * follow accu-cheks * glycemic control per hospitalist (8) Adult failure to thrive: Code(s): R62.7 - Adult failure to thrive Status: Acute Assessment and Plan: * deconditioned state due to several issues: * recent hospitalizations * acute infection (aspiration pneumonia) * fluctuating renal function * metastatic prostate cancer * PT/OT as tolerated * possible need for placement(?) Not opposed to discharge from renal perspective if otherwise medically stable -- he can follow-up with [facility] for ongoing CKD management. Will continue to follow. L Subjective Date/time seen: 09/05/24 10:05 Interval history: Follow-up for acute kidney injury/acute renal failure on chronic kidney disease. Renal function/creatinine continues to improve as noted by trend of labs; no apparent distress noted at the time of my visit; overall, he states that he is feeling reasonably well; no issues/events overnight or earlier this monrning. Exam 2 Narrative: General: elderly but WD/WN male in NAD Heart: normal S1 and S2; no rub Lungs: coarse breath sounds Abdomen: soft, nontender, nondistended, positive bowel sounds Extremities: no cyanosis or clubbing; no edema Skin: no rash or nodules Objective Data Vital Signs Vital Signs: Vital Signs Temp Pulse Resp BP Pulse Ox O2 Del Method FiO2 09/05/24 08:22 80 18 96 Room Air 24 09/05/24 08:22 80 09/05/24 08:21 98.1 F 80 18 131/72 96 09/05/24 08:03 82 20 09/05/24 07:50 84 20 09/05/24 05:35 97.9 F 87 20 119/52 L 98 09/05/24 02:07 95 20 09/05/24 01:54 97 20 09/04/24 20:30 100 09/04/24 20:28 98.2 F 100 20 148/87 H 96 09/04/24 19:46 90 20 09/04/24 19:36 97 96 Room Air 09/04/24 19:34 88 20 Intake/Output Intake/Output: Intake & Output 09/02/24 09/03/24 09/04/24 09/05/24 23:59 23:59 23:59 23:59 Intake Total 974 620 5552 720 Output Total 850 1600 1000 Balance 940 -30 210 -280 Meds/Results Medications: Active Medications Generic Name Dose Route Start Trade Name Freq PRN Reason Stop Acetaminophen 650 mg 09/01/24 04:45 Acetaminophen 325 Mg Tablet PO Q4H PRN Fever OR PAIN Albuterol 2 puff 08/29/24 23:55 Albuterol Sulfate (*Sp) Aerosol 1 Puff INHALATION Q6HRT PRN shortness of breath or wheezing Albuterol/Ipratropium 3 ml 09/02/24 02:00 Ipratropium 0.5 Mg/Albuterol Sulfate 2.5 Mg Ampul.Neb 3 Ml INHALATION Q6HRT [facility] Amoxicillin/Clavulanate Potassium 1 tablet 08/31/24 09:00 Amoxicillin/Clavulanate K 875-125 Mg Tab PO Q12HR [facility] Benzocaine 1 lozenge 09/04/24 15:57 Benzocaine/Menthol (*Bkc) 18 Ea Lozenge PO PRN PRN Sore Throat Carvedilol 6.25 mg 09/01/24 09:00 Carvedilol 6.25 Mg Tablet PO Q12HR [facility] Dextrose 12.5 gm 09/03/24 12:30 Dextrose 50% 25 Gm/50 Ml Syringe IV PUSH PRN PRN Hypoglycemia Protocol Dorzolamide/Timolol 1 drop 08/30/24 09:00 Dorzolamide/Timolol Ophth Sarah 10 Ml Bottle EACH EYE Q12HR PJ Glucagon 1 mg 09/03/24 12:30 Glucagon For Inj 1 Mg Vial IM PRN PRN Hypoglycemia Protocol Glucose 15 gm 09/03/24 12:30 Glucose Oral Gel 15 Gm Of Glucse In 37.5 Gm Tube PO PRN PRN Hypoglycemia Protocol Guaifenesin 600 mg 08/30/24 09:00 Guaifenesin 12 Hr 600 Mg Tabcr PO Q12HR [facility] Sodium Chloride 1,000 mls @ 100 mls/hr 08/31/24 07:30 Normal Saline Iv IV CONT .Q10H PJ Dextrose 1,000 mls @ 100 mls/hr 09/03/24 12:30 Dextrose 5% 1,000 Ml IVPB PRN PRN Hypoglycemia Protocol Insulin Aspart 3 - 6 units 09/04/24 08:00 Insulin Aspart (*Bkc) 100 Units/Ml SUB-Q TIDWM PJ Protocol Insulin Glargine 28 units 09/04/24 21:00 Insulin Glargine (*Bkc) 100 Units/Ml SUB-Q QHS PJ Loperamide HCl 2 mg 09/01/24 07:40 Loperamide Hcl 2 Mg Capsule PO PRN PRN Diarrhea Ondansetron HCl 4 mg 08/29/24 19:39 Ondansetron Inj 4 Mg/2 Ml Vial IV PUSH Q4H PRN Nausea Pantoprazole Sodium 40 mg 08/30/24 09:00 Pantoprazole 40 Mg Tablet PO DAILY PJ Pravastatin Sodium 20 mg 08/30/24 21:00 Pravastatin Sodium 20 Mg Tablet PO HS PJ Sitagliptin Phosphate 25 mg 08/30/24 09:00 Sitagliptin Phosphate 25 Mg Tablet PO DAILY [facility] Radiology Results: ITS Impressions Chest CT 08/29/24 19:06 IMPRESSION: Mild chronic bronchial wall thickening may reflect a component of bronchitis. Consider aspiration in the differential. Mild chronic interstitial lung disease in a UIP pattern, with a patulous esophagus, correlate for history of scleroderma. Ascending thoracic aortic ectasia. Modified Barium Swallow 08/30/24 15:03 IMPRESSION: Patient tolerated regular consistency oral feedings in the upright position. Please correlate with speech pathologist findings and specific feeding recommendations. Renal Ultrasound 09/02/24 11:44 IMPRESSION: 1. 2.7 cm left renal cyst. Otherwise normal kidneys without hydronephrosis. Chest X-Ray 09/04/24 06:34 IMPRESSION: Mild pulmonary vascular congestion with a small right-sided pleural effusion, without focal infiltrate. Labs Labs: Laboratory Tests 09/05/24 05:16 09/05/24 05:16 Calcium 8.4 Magnesium 1.7 Iron 27 L TIBC 238 L % Saturation 11 L Ferritin 76.60 Total Bilirubin 0.4 AST 21 ALT 18 Alkaline Phosphatase 99 Total Protein 6.0 L Albumin 3.0 L
[2024-09-05 10:49] LABS: Iron 27 ug/dL (49-181)
[2024-09-05 10:58] LABS: Percent Iron Saturation 11 % (20-50)
[2024-09-05 11:34] LABS: Glucose Point of Care 101 mg/dl (65-105)
--- NOTE | 2024-09-05 12:54 | PM.DS ---
DS: Admitting Diagnosis Discharge Date 09/05/24 Admitting Diagnosis nausea/vomiting/shortness of breath DS: Discharge Diagnosis Discharge Diagnosis (1) Acute kidney injury: Code(s): N17.9 - Acute kidney failure, unspecified Status: Acute DS: Summary Hospital Course Hospital Course: This is an 83-year-old male, with past medical history of hypertension, diabetes, CKD, AFIB, who presented to the ED with complaint of ongoing nausea/vomiting and generalized weakness. Patient also reported some shortness of breath and cough. He was in the ER a couple days ago but his symptoms improved with Zofran and he wanted to go home. Today he returned with similar symptoms but family told ER they could not take care of him at home and he needed to be placed in longer term placement. Workup in the ER reveals slight worsening of baseline CKD and chronic hyponatremia as well as findings of increased pro-BNP and WBCs. CXR showed right basilar atelectasis vs pneumonia. CT scan of chest showed chronic bilalteral wall thickening which may reflect bronchitis or aspiration. Given patient's vomiting, cough and shortness of breath he was started on Zosyn for possible aspiration pneumonia. He will be kept NPO except ice chips and meds until evaluated by speech therapy for swallow study. PT/OT will be consulted for placement recommendations and case management consulted for placement assistance. Patient is awake, alert but confused. Patient denies difficulty swallowing but notes increased cough and shortness of breath since he has been sick the past several days. Patient managed for COPD, started initially on Steroid but was disconitinued due to Hyperglycemia, on room air today. Discharged on home Duoneb and Spiriva prescribed today. Also managed for Aspiration pneumonia, discharged on Augmentin x 3 more days. NEphrology was consulted for GABRIELA on CKD, renal US showed 2.7cm left renal cyst. Cr 2.99 down from 3.66. Cr 2.[address] is close to baseline. dr Sanderson recommended that patient continue to follow up with her [facility] nephrology. diarrhea resolved F/u with PCP in 3-5 days F/u with [facility] nephrology or Dr Sanderson as instructed Time Spent with Patient Time attestation: Total time spent providing and/or coordinating discharge services: DS: Data Data Completed and Pending Labs on day of discharge: Labs from last 24 hours 09/05/24 09/05/24 09/05/24 11:30 08:02 05:16 WBC 13.4 H RBC 3.57 L Hgb 9.3 L Hct 30.4 L MCV 85.2 MCH 26.1 MCHC 30.6 L RDW 15.0 H Plt Count 628 H MPV 9.5 Immature Gran % (Auto) 1.0 H Neut % (Auto) 85.0 H Lymph % (Auto) 7.1 L [place] % (Auto) 6.6 Eos % (Auto) 0.2 Baso % (Auto) 0.1 L Lymph # (Auto) 0.96 [place] # (Auto) 0.9 H Eos # (Auto) 0.0 Baso # (Auto) 0.0 Abs Immat Gran (auto) 0.13 H Absolute Neuts (auto) 11.4 H Absolute Nucleated RBC 0.000 Nucleated RBC % 0.0 Sodium 137 Potassium 4.3 Chloride 109 H Carbon Dioxide 19 L Anion Gap 9 BUN 55 H Creatinine 2.99 H Estim Creat Clear Calc 18 Estimated GFR 20 L Glucose 143 H POC Capillary Glucose 101 120 H Calcium 8.4 Magnesium 1.7 Iron 27 L TIBC 238 L % Saturation 11 L Ferritin 76.60 Total Bilirubin 0.4 AST 21 ALT 18 Alkaline Phosphatase 99 Total Protein 6.0 L Albumin 3.0 L 09/04/24 09/04/24 20:37 16:38 WBC RBC Hgb Hct MCV MCH MCHC RDW Plt Count MPV Immature Gran % (Auto) Neut % (Auto) Lymph % (Auto) [place] % (Auto) Eos % (Auto) Baso % (Auto) Lymph # (Auto) [place] # (Auto) Eos # (Auto) Baso # (Auto) Abs Immat Gran (auto) Absolute Neuts (auto) Absolute Nucleated RBC Nucleated RBC % Sodium Potassium Chloride Carbon Dioxide Anion Gap BUN Creatinine Estim Creat Clear Calc Estimated GFR Glucose POC Capillary Glucose 251 H 255 H Calcium Magnesium Iron TIBC % Saturation Ferritin Total Bilirubin AST ALT Alkaline Phosphatase Total Protein Albumin Discharge Plan Discharge Attending physician on discharge: Anjelica Kohli Consulting providers: Catalina Zepeda; Marilu Rdz Discharging Clinician: Anjelica Kohli Anticipated Discharge Date/Time: 09/05/24 12:48 Patient Disposition: SNF Activity: as tolerated Diet: as tolerated and diabetic Patient Language: Irish Stand Alone Forms: General Discharge Information Follow-up/Referrals: Jeane,Kraig Fernandez MD [Primary Care Provider] - (F/u with PCP in 3-5 days ) Marilu Rdz MD [Physician] - (F/u wiht Nephrology as instructed ) Discharge Medications: New amoxicillin-pot clavulanate 875-125 mg tablet 1 tablet PO Q12H 3 Days Qty: 6 0RF Spiriva Respimat 1.25 mcg/actuation mist 2 puff inhalation DAILY 30 Days Qty: 4 1RF Continued pantoprazole 40 mg tablet,delayed release (DR/EC) 40 mg PO DAILY insulin aspart U-100 [Novolog FlexPen U-100 Insulin] 100 unit/mL (3 mL) insulin pen 8 unit SUBCUT TID Protocol: Insulin Corrective Low-Dose Condition: glucose < 70 mg/dl Dose/Route: Follow Hypoglycemia Order Condition: glucose 70-200 mg/dl Dose/Route: No additional insulin Condition: glucose 201-250 mg/dl Dose/Route: 2 units sub-Q Condition: glucose 251-300 mg/dl Dose/Route: 3 units sub-Q Condition: glucose 301-350 mg/dl Dose/Route: 4 units sub-Q Condition: glucose 351-400 mg/dl Dose/Route: 5 units sub-Q Condition: glucose > 400 mg/dl Dose/Route: Call MD Protocol Text: *No Correction Dose at Bedtime* Rx Instructions: Pt states he takes for glucose level 150 or higher. pt takes this intermittently insulin glargine [Lantus Solostar U-100 Insulin] 100 unit/mL (3 mL) insulin pen 28 unit subcut QHS Rx Instructions: Pt states he holds medication if glucose levels under 140. albuterol sulfate 90 mcg/actuation HFA aerosol inhaler 2 puff inhalation QID PRN (Reason: shortness of breath or wheezing) Qty: 8.5 2RF abiraterone 250 mg tablet 1,000 mg PO HS carvedilol 12.5 mg tablet 12.5 mg PO Q12H lisinopril 20 mg tablet 40 mg PO DAILY chlorthalidone 25 mg tablet 25 mg PO DAILY dorzolamide-timolol 22.3-6.8 mg/mL drops 1 drp EACH EYE Q12H pravastatin 20 mg tablet 20 mg PO HS Januvia 25 mg tablet 25 mg PO DAILY insulin aspart U-100 [Novolog FlexPen U-100 Insulin] 100 unit/mL (3 mL) insulin pen 1 sliding scale dose SUBCUT TID ondansetron 4 mg tablet,disintegrating 4 mg PO Q8H Qty: 14 0RF Date of admission: 08/31/24 15:27 Primary Care Provider: Jeane,Kraig Fernandez Admitting Provider: Jack Miller Attending physician on admission: Anjelica Kohli Condition: Stable
== END 2024-09-05 13:36 | DRG 178 ==
LOC: ANHED 19:42 → ANH3MEDSUR 20:52 → ANH2MED 21:09
PROVIDERS: General Practice; Internal Medicine Nephrology; Nurse Practitioner; Nurse Practitioner Family; Physician Assistant; Admitting Provider Internal Medicine; Emergency Provider Physician Assistant; PCP Internal Medicine; Visit Provider Internal Medicine
DX: J69.0 Pneumonitis due to inhalation of food and vomit (principal); C79.51 Secondary malignant neoplasm of bone; E87.1 Hypo-osmolality and hyponatremia; N17.9 Acute kidney failure, unspecified; J44.1 Chronic obstructive pulmonary disease with (acute) exacerbation; E87.70 Fluid overload, unspecified; I48.0 Paroxysmal atrial fibrillation; I12.9 Hypertensive chronic kidney disease with stage 1 through stage 4 chronic kidney disease, or unspecified chronic kidney disease; N18.32 Chronic kidney disease, stage 3b; E11.22 Type 2 diabetes mellitus with diabetic chronic kidney disease; E78.5 Hyperlipidemia, unspecified; K21.9 Gastro-esophageal reflux disease without esophagitis; R19.7 Diarrhea, unspecified; R62.7 Adult failure to thrive; Z20.822 Contact with and (suspected) exposure to COVID-19; Z79.4 Long term (current) use of insulin; Z87.891 Personal history of nicotine dependence; Z85.46 Personal history of malignant neoplasm of prostate
CPT/HCPCS: 36415; 71045; 71046; 71250; 76775; 80053; 81001; 81050; 82550; 82570; 82728; 82948; 83036; 83540; 83550; 83605; 83690; 83735; 83880; 84156; 84300; 84484; 84540; 85025; 85610; 85730; 85999; 87040; 87493; 87637; 87641; 92610; 92611; 93005; 93306; 94640; 94667; 94668; 96365; 96375; 96376; 97110; 97161; 97165; 97530; 99285; A9270; G0378; J1815; J1938; J2405; J2543; J3475; J3480; J7030; J7040; J7512; P9047

== ENCOUNTER 2024-09-09 18:33 | Inpatient (IN) | payer MEDICARE, SELFPAY ==
[2024-09-09] VITALS (7 sets, daily range): BP systolic 79–120; BP diastolic 46–52; PULSE 84–96; RESP 17–26; TEMP 37.6–38.4; O2SAT 95–97
--- NOTE | ~2024-09-09 | XR_ITS ---
MODIFIED ESOPHAGRAM HISTORY: Dysphagia. TECHNIQUE: Modified barium esophagram was performed on 09/29/2024. I administered fluoroscopy and perf ormed the exam with speech pathologist. Patient was seated for lateral fluoroscopic imaging for tobin stion of thin liquids, pudding, solids and quantified amounts, followed by thin liquids in uncontroll ed amounts. This was recorded on tape. A single fluoroscopic spot image was also recorded. The DAP fo r this procedure was 1.868 Gycm2. The amount of fluoroscopy time used during this procedure was 2.5 m inutes. FINDINGS: Oral stage: Adequate function. Pharyngeal stage: Adequate function. Cervical/esophageal stage: Adequate function. IMPRESSION: Patient tolerated regular consistency oral feedings in the upright position. Please domingo elate with speech pathologist findings and specific feeding recommendations. Reviewed, dictated and finalized at location A. IMPRESSION: Patient tolerated regular consistency oral feedings in the upright position. Please correlate with speech pathologist findings and specific feedi ng recommendations.
--- NOTE | ~2024-09-09 | CT_ITS ---
EXAMINATION: CT chest abdomen wo con DATE: 09/16/2024 13:45 INDICATION: Assess for pneumonia TECHNIQUE: Computed tomography (CT) of the chest and abdomen was performed without intravenous contra st. Automated exposure control and iterative reconstruction technique were employed. The dose-length product was 1167.36 mGy-cm. COMPARISON: Chest CT dated 09/14/[address] chest, abdomen and pelvis dated 09/09/2024 FINDINGS: CHEST CT: No significant change in small bilateral posterior layering pleural effusions with mild dependent ate lectasis in the right upper and bilateral lower lobes. No pneumonia or pulmonary edema in the aerated portions of the lungs. Heart size is normal. Atherosclerotic coronary artery and aortic valve calcif ic lesion. No pericardial effusion. Thoracic aorta is normal in caliber. No pathologically enlarged t horacic lymphadenopathy. There is some residual oral contrast material from the earlier modified lucila um swallow study and the esophagus. Mild thoracic spondylosis with bridging osteophytes at multiple l evels consistent with diffuse idiopathic skeletal hyperostosis (DISH). ABDOMEN CT: Gallbladder is not visualized likely surgically absent. Liver, spleen, pancreas and bilateral adrenal glands are normal. 3 cm low-attenuation cyst at the posterior medial left kidney. Subcentimeter hype rdense exophytic proteinaceous/hemorrhagic cyst at the lower pole the right kidney. There is an addit ional 3.5 cm exophytic lesion at the posterior right kidney which appeared anechoic on ultrasound nils ed 09/28/2020 consistent with additional prone/hemorrhagic cyst. There is oral contrast material in th e stomach and throughout much of the visualized small bowel. Several diverticula along the visualized descending colon without adjacent from trace stranding to suggest diverticulitis. No pathologically enlarged abdominal lymphadenopathy. Severe lumbar spondylosis. IMPRESSION: 1. Unchanged small bilateral posterior layering pleural effusions with dependent atelectasis in both lungs. No pulmonary edema or pneumonia in the aerated portions of the lungs. Reviewed, dictated and finalized at location A. IMPRESSION: 1. Unchanged small bilateral posterior layering pleural effusions with dependen t atelectasis in both lungs. No pulmonary edema or pneumonia in the aerated por tions of the lungs.
--- NOTE | ~2024-09-09 | XR_ITS ---
EXAMINATION: XR lumbar puncture diagnostic DATE: 09/19/2024 17:44 INDICATION: Acute mental status TECHNIQUE: The procedure including the risks and benefits was discussed with the patient. Risks discu ssed included spinal headache, cerebrospinal fluid leak, bleeding, and infection. The patient underst ood the risks and agreed to proceed. A timeout was performed to verify the patient's name, date of , and procedure to be performed. The skin overlying the L5-S1 level was prepped and draped in usual sterile fashion. Subcutaneous 1% lidocaine was used for local anesthesia. A 22 gauge spinal n eedle was advanced under fluoroscopic guidance. The needle was removed and the entry site was cleaned and dressed. There were no immediate complications. A total of 2 fluoroscopic images and one crosst able lateral radiograph were obtained. The amount of fluoroscopy time used during this procedure was 0.3 minutes. Total DAP was 6.57 Gycm^2 At the conclusion of the procedure the patient was returned t o the floor. There were no immediate competitions. FINDINGS: Real-time fluoroscopy demonstrates the needle at the 5 S1 level. Opening pressure was 18 cm water. (Normal range is variably defined as 6-20 cm water and up to 25 cm water in obese patients. P ressure >25 cm water is one of the modified Dandy criteria for idiopathic intracranial hypertension). 2.5 mL of clear, colorless fluid was collected in 2 tubes. The pressure at this point was <[address] no additional fluid was able to be obtained likely due to multilevel severe stenosis throughout t he more cephalad lumbar spine. I spoke with Dr. Smalls regarding the limited amount of fluid so that he would be able to prioritize the appropriate studies to be obtained. IMPRESSION: 1. Successful fluoro-guided lumbar puncture with normal opening pressure of 18 cm water which yielded only 2.5 mm of clear CSF. Reviewed, dictated and finalized at location A.
--- NOTE | ~2024-09-09 | US_ITS ---
EXAMINATION:US venous doppler LE BI INDICATION:Fever TECHNIQUE: Multiple grayscale, color flow and Doppler images of the right and left lower extremity de ep venous systems were obtained and reviewed. COMPARISON:No prior studies for comparison. FINDINGS: The common femoral, superficial femoral and popliteal veins demonstrate normal respiratory variation, augmentation and compressibility. Color flow is also seen within the posterior tibial, pe roneal, greater saphenous and profunda veins. There is a central line in the right common femoral vei n. IMPRESSION: 1: No lower extremity deep venous thrombosis. Reviewed, dictated and finalized at location A.
--- NOTE | ~2024-09-09 | XR_ITS ---
Upright portable view of of the abdomen Clinical history: NG tube placement Findings: NG tube in satisfactory position. Bowel gas pattern is nonspecific. No evidence for obstruc tion or free air. No abnormal mass lesion or calcification is seen. Osseous structures are intact. Impression: NG tube in satisfactory position. Reviewed, dictated and finalized at location . Impression: NG tube in satisfactory position.
--- NOTE | ~2024-09-09 | XR_ITS ---
MODIFIED ESOPHAGRAM HISTORY: Aspiration TECHNIQUE: Modified barium esophagram was performed on 09/16/2024. I administered fluoroscopy and perfo rmed the exam with speech pathologist. Patient was seated for lateral fluoroscopic imaging for inges tion of thin liquids, pudding, solids and quantified amounts, followed by thin liquids in uncontrolle d amounts. This was recorded on tape. A single fluoroscopic spot image was also recorded. The DAP for this procedure was 2.953 Gycm2. The amount of fluoroscopy time used during this procedure was 3.4 mi nutes. FINDINGS: Oral stage: Adequate function. Pharyngeal stage: Adequate function. Cervical/esophageal stage: Adequate function. IMPRESSION: Patient tolerated regular consistency oral feedings in the upright position. Please domingo elate with speech pathologist findings and specific feeding recommendations. Reviewed, dictated and finalized at location A. IMPRESSION: Patient tolerated regular consistency oral feedings in the upright position. Please correlate with speech pathologist findings and specific feedi ng recommendations.
--- NOTE | ~2024-09-09 | XR_ITS ---
MODIFIED ESOPHAGRAM HISTORY: Aspiration precautions TECHNIQUE: Modified barium esophagram was performed on 09/25/2024. I administered fluoroscopy and perf ormed the exam with speech pathologist. Patient was seated for lateral fluoroscopic imaging for tobin stion of thin liquids, pudding, solids and quantified amounts, followed by thin liquids in uncontroll ed amounts. This was recorded on tape. A single fluoroscopic spot image was also recorded. The DAP fo r this procedure was 2.774 Gycm2. The amount of fluoroscopy time used during this procedure was 3.2 m inutes. FINDINGS: Oral stage: Adequate function. Pharyngeal stage: Reduced laryngeal elevation and tongue base retraction. There is vallecular residue . Laryngeal penetration with thin liquids without aspiration. Cervical/esophageal stage: Adequate function. IMPRESSION: Pharyngeal dysphagia with laryngeal penetration with thin liquids but without aspiration. Please correlate with speech pathologist findings and specific feeding recommendations. Reviewed, dictated and finalized at location A. IMPRESSION: Pharyngeal dysphagia with laryngeal penetration with thin liquids b ut without aspiration. Please correlate with speech pathologist findings and s pecific feeding recommendations.
--- NOTE | ~2024-09-09 | XR_ITS ---
EXAMINATION: XR chest 1V portable DATE: 09/11/2024 09:00 INDICATION: Fevers TECHNIQUE: frontal and lateral views of the chest were obtained. COMPARISON: Chest radiograph and CT dated 09/09/24 FINDINGS: Small right pleural effusion with blunting at the right costophrenic angle and small amount of fluid tracking along the fissure. New airspace opacity medial right lower lung zone which could represent a telectasis or pneumonia. No pneumothorax or left-sided pleural effusion. Heart size is normal. IMPRESSION: 1. New opacities at the right lower lung zone which could represent atelectasis or pneumonia. 2. Small right pleural effusion. Reviewed, dictated and finalized at location B.
--- NOTE | ~2024-09-09 | CT_ITS ---
CT Scan of the Chest without Contrast: Clinical Indication: Fever Technique: Contiguous sections were acquired throughout the chest without intravenous contrast. Dose reduction technique was used on this scan by utilizing automated exposure control and iterative recon struction technique. The dose-length product (DLP) was 655.37 mGy-cm. COMPARISON: 09/09/2024 Findings: There is no evidence of any significant mediastinal, hilar or axillary lymphadenopathy. Coronary олег ry calcifications are present. No pericardial effusion. Small to moderate bilateral pleural effusions are present. There is minimal associated bibasilar atel ectatic change. Probable minimal interstitial edema. Images through the upper abdomen reveal no abnormalities. Impression: [id number] bilateral pleural effusions with probable minimal interstitial edema and minimal bi basilar atelectatic change. Reviewed, dictated and finalized at [facility]. Impression: [id number] bilateral pleural effusions with probable minimal interstitia l edema and minimal bibasilar atelectatic change.
--- NOTE | ~2024-09-09 | XR_ITS ---
EXAMINATION: XR chest 1V portable DATE: 09/19/2024 12:03 INDICATION: Increased oxygen demands. Abnormal ABG. TECHNIQUE: frontal view of the chest was obtained. COMPARISON: Chest radiograph dated 09/11/[address] dated 09/16/2024 FINDINGS: Mild bibasilar opacities with blunting at the costophrenic cardiophrenic angles consistent with persi stent small bilateral pleural effusions and associated basilar atelectasis. No pulmonary edema or pne umothorax. The cardiomediastinal silhouette is within normal limits accounting for slight rightward r otation of the patient. IMPRESSION: 1. Unchanged small bilateral pleural effusions with associated mild bibasilar atelectasis. Reviewed, dictated and finalized at location A. IMPRESSION: 1. Unchanged small bilateral pleural effusions with associated mild bibasilar a telectasis.
--- NOTE | ~2024-09-09 | CT_ITS ---
CT brain wo con Ordering provider: Nixon Rich MD History: 83 years Male with . 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 Comparison: None. Technique: CT of the head without contrast. Radiation reduction technique utilized.The dose-length pr oduct was 681 mGy-cm. FINDINGS: BRAIN PARENCHYMA AND CSF SPACES: Mild leukoaraiosis and diffuse cortical atrophy. Mild atheromatous d isease. Old infarct in the right external capsule. No midline shift, mass effect or hemorrhage. The brain parenchyma and CSF spaces are otherwise normal. Empty sella turcica. VISUALIZED PARANASAL SINUSES: Well aerated. MASTOIDS: Well aerated. BONES: The bones appear intact. SOFT TISSUES: Visualized nasopharynx is normal. Superficial soft tissues are normal. IMPRESSION: No acute intracranial findings. Reviewed, dictated and finalized at location A.
--- NOTE | ~2024-09-09 | XR_ITS ---
XR chest 1V portable Ordering provider: Jack Miller MD History: 83 years Male with . sob . Comparison: September 22, 2024 FINDINGS: MEDIASTINUM: The cardiac silhouette is slightly enlarged. Nasogastric tube seen is seen extending to the stomach. LUNGS: No pneumothorax. Opacification in the right lower lobe suggestive of atelectasis versus pneumo momo. Blunting of the left costophrenic angle is seen suggestive of minimal effusion. OTHER: No free air under the diaphragm. Degenerative the spine. IMPRESSION: Right basilar atelectasis versus pneumonia. Minimal left pleural effusion. Reviewed, dictated and finalized at location A.
--- NOTE | ~2024-09-09 | XR_ITS ---
Portable chest x-ray Comparison: 09/19/2024 Clinical History: Cough Findings: There is probable mild bibasilar pulmonary edema/atelectasis. Minimal pleural effusions ar e present. Cardiomediastinal silhouette is stable. Bones and soft tissues are unremarkable. Impression: Minimal pleural effusions with mild bibasilar pulmonary edema/atelectasis. Reviewed, dictated and finalized at location . Impression: Minimal pleural effusions with mild bibasilar pulmonary edema/atelectasis.
--- NOTE | ~2024-09-09 | MR_ITS ---
EXAMINATION: MR brain/brain stem wo con DATE: 09/15/2024 14:45 INDICATION: Slurred speech. Rule out stroke. TECHNIQUE: Magnetic resonance imaging (MRI) of the brain and brainstem was performed without intraven ous contrast. Sequences included sagittal and axial T1-weighted SE, axial diffusion-weighted FS SE, a xial 3D SWAN, axial T2-weighted FLAIR, and axial T2-weighted FSE. Apparent diffusion coefficient (ADC ) maps were created. COMPARISON: Head CT dated 09/14/2024 FINDINGS: Small old lacunar infarct in the right subinsular white matter. There are no areas of restricted diff usion to suggest acute infarction. No intracranial hemorrhage or abnormal intracranial mass lesion. T here are scattered areas of nonspecific increased T2-weighted signal intensity in the cerebral white matter, predominantly involving the deep and periventricular white matter. There are no intraparenchy mal signal abnormalities seen on the other pulse sequences. Symmetric prominence of the sulci consist ent with mild age-appropriate diffuse cerebral volume loss. The ventricles are symmetric and normal in size. There are no abnormal extra-axial fluid collections. Flow voids are seen in the cerebral art eries on the T2-weighted sequences consistent with their expected patency. Mild mucoperiosteal thicke shania bilateral ethmoid sinuses. Changes of bilateral intraocular lens replacement. IMPRESSION: 1. 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 No acute intracranial process. 2. Age-related changes including mild diffuse volume loss and mild scattered nonspecific white matter T2 hyperintensity consistent with chronic small vessel ischemic disease. Reviewed, dictated and finalized at location A. IMPRESSION: 1. 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 No acute int racranial process. 2. Age-related changes including mild diffuse volume loss and mild scattered no nspecific white matter T2 hyperintensity consistent with chronic small vessel i schemic disease.
--- NOTE | ~2024-09-09 | CT_ITS ---
CT brain wo con Ordering provider: Anjelica Kohli MD History: 83 years Male with . altered mental status . Comparison: September 14, 2024 Technique: CT of the head without contrast. Radiation reduction technique utilized. The dose-length product was 681. mGy-cm. FINDINGS: BRAIN PARENCHYMA AND CSF SPACES: Mild leukoaraiosis and diffuse cortical atrophy. Mild atheromatous d isease. Old lacunar infarct is seen in the right external capsule. No midline shift, mass effect or h emorrhage. The brain parenchyma and CSF spaces are otherwise normal. VISUALIZED PARANASAL SINUSES: Well aerated. Left nasal septal deviation. MASTOIDS: Well aerated. BONES: The bones appear intact. SOFT TISSUES: Visualized nasopharynx is normal. Superficial soft tissues are normal. IMPRESSION: No acute intracranial findings. Reviewed, dictated and finalized at location A.
--- NOTE | ~2024-09-09 | US_ITS ---
Procedure: Duplex Doppler examination of the bilateral carotids. Indication: Left CVA Technique: Real time, color-flow and pulse wave Doppler examination of the bilateral carotids was performed. Findings: Plascencia scale ultrasonography of the right neck demonstrated no significant plaque.. There was demonstra tion of normal color-flow and Doppler waveforms within the right common, internal and external caroti d arteries. The peak systolic velocities in the right common, internal and external carotid arteries were demonstrated to be 115 cm/sec, 157 cm/sec and 120 cm/sec respectively. The right ICA/CCA ratio w as 1.4.The proximal right internal carotid artery demonstrates 0% stenosis relative to the normal dis micki artery lumen diameter. Plascencia scale sonography of the left neck demonstrated no significant plaque.. There was demonstration o f normal color-flow and wave forms within the left common, internal and external carotid arteries. Th e peak systolic velocities in the left common, internal and external carotid arteries were demonstrat ed to be 71cm/sec, 90 cm/sec and 72 cm/sec respectively. The left ICA/CCA ratio was 1.3. The proximal left internal carotid artery demonstrates 0% stenosis relative to the normal distal artery lumen anna meter. There was antegrade flow demonstrated in the bilateral vertebral arteries. Impression: Mildly elevated velocity in the right internal carotid artery suggests moderate (50-69%) stenosis, th ough noted significant plaque clearly evident. Antegrade flow in the bilateral vertebral arteries. Note: The methodology used is an indirect measurement validated against a direct method (such as the NASCET criteria) that compares diameters at the stenosis to the distal ICA. Reviewed, dictated and finalized at location M. Impression: Mildly elevated velocity in the right internal carotid artery suggests moderate (50-69%) stenosis, though noted significant plaque clearly evident. Antegrade flow in the bilateral vertebral arteries. Note: The methodology used is an indirect measurement validated against a direct meth od (such as the NASCET criteria) that compares diameters at the stenosis to the distal ICA.
--- NOTE | ~2024-09-09 | XR_ITS ---
Portable chest x-ray Comparison: 09/21/2024 Clinical History: Shortness of breath Findings: Minimal bilateral pleural effusions are present. Questionable minimal bibasilar pulmonary edema. Cardiomediastinal silhouette is stable. Bones and soft tissues are unremarkable. Impression: Minimal pleural effusions with questionable minimal bibasilar pulmonary edema. Reviewed, dictated and finalized at [facility]. Impression: Minimal pleural effusions with questionable minimal bibasilar pulmonary edema.
--- NOTE | ~2024-09-09 | CT_ITS ---
CT chest abdomen pelvis wo con Ordering provider: Fantasma De Leon History: . fever unclear origin . Comparison: None. Technique: CT chest without IV contrast. CT abdomen and pelvis without oral and IV contrast. Radiatio n reduction technique utilized.The dose-length product was 1447.4 mGy-cm. FINDINGS: The study is limited due to lack of IV contrast. CHEST: --VISUALIZED THORACIC INLET: Normal as visualized. --MEDIASTINUM: Aorta/coronary arteries: Mild atheromatous disease. Heart/other: The heart is not enlarged. Lymph nodes: No mediastinal or hilar adenopathy. Dilated esophagus with air-fluid level. Reflux esophagitis is possible. --LUNGS: No pulmonary nodules or masses. No infiltrates or effusions. No pneumothorax. Minimal right pleural effusion. Dependent atelectatic changes. --MUSCULOSKELETAL: Soft tissues: The superficial soft tissues are normal. Bones: Age appropriate degenerative changes of the spine. ABDOMEN/PELVIS: --MUSCULOSKELETAL: Bones: Age appropriate degenerative changes of the spine. Bilateral sacroiliitis. Superficial soft tissues: Tiny umbilical fat-containing hernia. Bilateral fat containing inguinal her nias. Otherwise, The superficial soft tissues are normal. --UPPER ABDOMINAL ORGANS: Liver: Normal. Gallbladder: Not demonstrated suggestive of surgical removal. Spleen: Normal. Stomach/duodenum: Normal. Pancreas: Normal. Adrenals: Normal. Kidneys: Left upper pole cyst measuring 2.9 cm. Exophytic cyst is seen in the right kidney midpole me asuring 3 cm. Tiny hypodense lesion seen in the right kidney lower pole most likely hemorrhagic cyst. Tiny mass cannot be excluded. Follow-up advised. --PELVIC ORGANS: The bladder shows slightly thickened wall. Evaluation for cystitis advised. No bladd er stones. Penile prosthesis is seen in the left side of the pelvis and in the penis. --BOWEL AND MESENTERY: Colon: No evidence of diverticulitis. Fecal material is loaded in the colon. Normal appendix. Postope rative changes in the pelvis Small Bowel: Normal. No obstruction. Peritoneum/mesentery: No free air or free fluid. No mesenteric lymphadenopathy. --RETROPERITONEUM: Mild atheromatous disease of the abdominal aorta. No retroperitoneal lymphadenop athy. IMPRESSION: CHEST: 1. Right pleural effusion. 2. No other definite acute cardiopulmonary pathology seen. 3. Slightly dilated esophagus which may indicate reflux esophagitis. ABDOMEN/PELVIS: 1. No evidence of appendicitis, diverticulitis or intestinal obstruction. 2. Bilateral renal cysts with small density in the right kidney lower pole. Follow-up advised. 3. Bilateral fat containing inguinal hernias. Small fat-containing umbilical hernia. Reviewed, dictated and finalized at location A. IMPRESSION: CHEST: 1. Right pleural effusion. 2. No other definite acute cardiopulmonary pathology seen. 3. Slightly dilated esophagus which may indicate reflux esophagitis. ABDOMEN/PELVIS: 1. No evidence of appendicitis, diverticulitis or intestinal obstruction. 2. Bilateral renal cysts with small density in the right kidney lower pole. Fo llow-up advised. 3. Bilateral fat containing inguinal hernias. Small fat-containing umbilical h ernia.
--- NOTE | ~2024-09-09 | XR_ITS ---
XR chest 2V Ordering provider: Fantasma De Leon MD History: 83 years Male with . recent PNA . Comparison: September 04, 2024 FINDINGS: MEDIASTINUM: The cardiac silhouette is moderately enlarged. LUNGS: No infiltrates. No pneumothorax. Blunting of the posterior costophrenic angles suggestive of minimal effusion with adjacent atelectasi s. OTHER: No free air under the diaphragm. IMPRESSION: Cardiomegaly. Blunting of the posterior costophrenic angles suggestive of effusion with adjacent atelectasis. Reviewed, dictated and finalized at location A. IMPRESSION: Cardiomegaly. Blunting of the posterior costophrenic angles suggestive of effusion with adjac ent atelectasis.
--- OUTSIDE RECORDS SUMMARY | 2024-09-09 19:08 | XMS_ITS | Referral Summary ---
Author Organization [facility] Address [address] [place] [address] Care Team Providers Care Tax Commissioner Name Role Phone Kraig Ching MD Primary Care Provider [phone] Gautam Cope MD Unavailable Tramaine Roe MD Unavailable [phone] Sukhwinder Uribe MD Unavailable Shay Guillermo MD Unavailable Marsha Landis RN Unavailable Unavailab le Encounters Date Type Department Care Team Description 09/05/2024 Orders Only [facility] [address] [place] [address] Scanning, Provider 08/30/2024 Orders Only [facility] [address] [place] [address] Scanning, Provider 08/29/2024 Orders Only [facility] [address] [place] [address] Scanning, Provider 08/28/2024 Orders Only [facility] [address] [place] [address] Scanning, Provider 08/25/2024 Telephone [facility] [place] [address] [place] [phone] Kraig Ching MD ZAK Questions 08/24/2024 Telephone [facility] [address] [place] [phone] Kraig Ching MD Medical Question/Miscellaneous 08/21/2024 Telephone [facility] [address] [place] [phone] Kraig Ching MD Additional Services Or Orders 08/21/2024 Telephone [facility] [address] [place] [phone] Kraig Ching MD Medical Question/Miscellaneous 07/31/2024 Orders Only [facility] [address] [place] [address] Scanning, Provider 07/24/2024 Telephone [facility] [address] [place] [address] Floor [address] [place] [address] Gautam Cope MD 07/22/2024 Orders Only [facility] Information Management [address] [place] [address] Scanning, Provider 07/21/2024 Results Follow-Up [facility] at [address] [phone] Fadi Corrales NP Urine culture Urine, clean voided 07/19/2024 7:45 PM CDT - 07/19/2024 11:59 PM CDT Hospital Encounter [facility] [id number] [place] [address] Urinary frequency Discharge Disposition: Discharge to home or self care 07/19/2024 2:00 PM CDT Office Visit [facility] at [address] [phone] Clau Childers PA Urinary frequency (Primary Dx); Leukocytosis, unspecified type 07/18/2024 Patient Self-Triage [facility] [address] [place] [address] Mychart, Generic Provider 07/18/2024 1:00 PM CDT Office Visit [facility] Floor [address] [place] [address] Gautam Cope MD Prostate cancer (HCC) (Primary Dx) 07/18/2024 12:00 PM CDT Lab [facility] - Lab Collection [address] [place] [address] Prostate cancer (HCC) 07/18/2024 1:45 PM CDT Infusion [facility] Infusion [address] [place] [address] Prostate cancer (HCC) (Primary Dx) 07/01/2024 Orders Only [facility] Information [facility] [address] [place] [address] Scanning, Provider 06/14/2024 6:15 PM GENERAL SCIENCE TEACHER Lab [facility] [address] [place] [phone] GABRIELA (acute kidney injury) 06/14/2024 3:00 PM GENERAL SCIENCE TEACHER Office Visit [facility] [address] [facility] 5th [place] [address] [place] [phone] Lin Guerrero MD Chronic kidney disease, stage 3b (HCC) (Primary Dx); GABRIELA (acute kidney injury); Hypertension, essential; Secondary hyperparathyroidism of renal origin from Last 3 Months Allergies Active Allergy [...] 05/30/2024 Assessment & Plan (06/08/2024 4:46 AM GENERAL SCIENCE TEACHER): Continue current regimen.Limit nephrotoxins.Reviewed creatinine. Avoid [...] 03/08/2023 Assessment & Plan (06/08/2024 4:46 AM GENERAL SCIENCE TEACHER): Hypertension is controlled. Continue current regimen. Assessment & Plan (10/05/2023 12:54 PM CDT): Hypertension is controlled. Decrease carvedilol to 12.5 mg. Assessment & Plan (03/08/2023 7:11 AM GENERAL SCIENCE TEACHER): Hypertension is controlled. Continue current regimen. 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 Avoid NSAIDS. Assessment & Plan (10/05/2023 5:50 AM CDT): Continue current regimen.Limit nephrotoxins.Reviewed creatinine. Avoid NSAIDS. Assessment & Plan (03/08/2023 7:12 AM GENERAL SCIENCE TEACHER): Continue current regimen.Limit nephrotoxins.Reviewed creatinine. Avoid NSAIDS. CKD (chronic kidney disease) 03/08/2022 Assessment & Plan (06/08/2024 4:45 AM GENERAL SCIENCE TEACHER): Limit nephrotoxins. Monitor creatinine. Avoid NSAIDS.Follow with Nephrology. Anemia in stage 3b chronic kidney disease 2021 Gastroesophageal reflux disease 04/08/2021 Assessment & Plan (03/08/2023 11:17 AM GENERAL SCIENCE TEACHER): Reviewed dietary modifications. Continue PPI. Assessment & Plan (08/18/2022 6:36 AM CDT): Reviewed dietary modifications. Continue PPI. Assessment & Plan (02/12/2022 6:03 AM CDT): Reviewed dietary modifications. Continue PPI. Assessment & Plan (04/08/2021 5:55 AM GENERAL SCIENCE TEACHER): Reviewed dietary modifications. Continue PPI. 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 Continue home PT exercises. Advised using a walker. Assessment & Plan (08/18/2022 11:47 AM CDT): Continue oxycodone. Continue home PT exercises. Advised using a walker. Assessment & Plan (02/12/2022 11:41 AM CDT): Continue oxycodone. Continue home PT exercises. A prescription for a walker. Assessment & Plan (04/08/2021 5:55 AM GENERAL SCIENCE TEACHER): Continue oxycodone. Continue home PT exercises. Continue walker. Assessment & Plan (12/26/2020 10:48 AM CDT): Continue oxycodone. Script for walker. Assessment & Plan (09/26/2020 11:29 AM CDT): Continue ROM exercises and follow with Pain Management. Refill oxycodone as needed. Prostate cancer 09/06/2018 Assessment & Plan (06/08/2024 4:46 AM GENERAL SCIENCE TEACHER): Follow with Oncology. Continue Zytiga. Assessment [...] 01/25/2018 Assessment & Plan (03/07/2018 6:54 AM GENERAL SCIENCE TEACHER): Hypertension is controlled. Continue current regimen. [...] creatinine. Assessment & Plan (04/08/2021 5:54 AM GENERAL SCIENCE TEACHER): Hypertension is controlled. Continue current regimen.Limit [...] NSAIDS. Assessment & Plan (03/07/2018 6:55 AM GENERAL SCIENCE TEACHER): Hypertension is controlled. Continue current regimen. Limit nephrotoxins. Monitor creatinine. Avoid NSAIDS. Assessment & Plan (11/25/2017 7:09 AM CDT): Limit nephrotoxins. Monitor creatinine. Avoid NSAIDS. Duodenal ulcer 11/25/2017 Assessment & Plan (11/25/2017 10:16 AM CDT): Reviewed GI note . Continue pantoprazole. Avoid NSAIDS. Refer for EGD. PAF (paroxysmal atrial fibrillation) 10/22/2017 Assessment & Plan (03/07/2018 6:54 AM GENERAL SCIENCE TEACHER): Continue rate control. Continue anticoagualtion. Anticipate [...] NSAIDS. Assessment & Plan (03/07/2018 6:55 AM GENERAL SCIENCE TEACHER): Limit nephrotoxins. Monitor creatinine. Avoid NSAIDS. [...] diet. Assessment & Plan (04/08/2021 10:17 AM GENERAL SCIENCE TEACHER): Reviewed HgBA1C elevated at 10.6 on [...] therapy. Assessment & Plan (03/07/2018 6:57 AM GENERAL SCIENCE TEACHER): Continue pravastatin. He had myalgias on [...] diet. Assessment & Plan (03/02/2017 6:53 AM GENERAL SCIENCE TEACHER): Hypertension is controlled. Continue current regimen. Reviewed low sodium diet. Assessment & Plan (01/15/2017 6:44 AM CDT): Reviewed proper diet. Continue statin therapy. Hyperlipidemia 01/12/2012 Assessment & Plan (06/08/2024 4:46 AM GENERAL SCIENCE TEACHER): Continue pravastatin. Order lipid panel at [...] 05/28/2023 Assessment & Plan (03/08/2023 11:40 AM GENERAL SCIENCE TEACHER): Agree with cataract surgery. He has [...] 08/30/2017 Assessment & Plan (03/02/2017 10:48 AM GENERAL SCIENCE TEACHER): Mood is improved. Monitor off medication. [...] 200. Assessment & Plan (03/07/2018 6:56 AM GENERAL SCIENCE TEACHER): Continue current regimen. Advised annual eye [...] 01/17/2019 Influenza, Unspecified 01/17/2019(Deferred: Daisy ent Refused) [employer]) SARS-CoV-2 Vaccination 06/14/2020, 06/14/2020 Pfizer SARS-CoV-2 [...] pur e alcohol) Occasional glass of wine. [facility] Utilities Answer Date Recorded In the [...] any clubs o r organizations such as congregation groups, unions, fraternal or athletic groups, or [...] any time in the past 12 [facility], were you homeless or living in a long term (including now)? No 04/04/2024 Personal Safety Answer Date Recorded Have you ever been in or are you currently in a harmful physical or emotional relationship or is someone making you feel afraid or unsafe? Denies 06/09/2023 Sex and Gender Information Value Date Recorded Sex Assigned at Not on file Legal Sex Male 4:46 PM GENERAL SCIENCE TEACHER Gender Identity Not on file Sexual [...] 175.3 cm (5' 9) 06/14/2024 2:58 PM GENERAL SCIENCE TEACHER Body Mass Index 29.98 06/14/2024 2:58 PM GENERAL SCIENCE TEACHER Plan of Treatment Not on file Goals Goal Patient Goal Type Associated Problems Recent Progress Patient-Stated? Author ZAK General Goal - Patient establishes care with [facility] ACO Care Management On track(2023 1:22 PM GENERAL SCIENCE TEACHER) Clarissa Arana RN Note: Problem: Lack of [facility] communication Interventions: - Provide coordination between [facility] company and patient. - Ensure [facility] has appropriate referral and orders to establish care with patient. - Follow up with patient to ensure initial visit was completed by [facility] and that a [facility] plan has been started. ZAK General Goal - Patient schedules and keeps appointments with all recommended providers ACO Care Management Improving( 1:22 PM GENERAL SCIENCE TEACHER) No Gain, Clarissa Castellanos RN Note: Problem: [...] medication regimen. Medical Devices Implanted Type Area Va Underwriter Device Identifier Shelf Expiration Date Model / Serial / Lot [employer] Lens Iol Cna0t0.195 [facility] Autonom Cna0t0.195 - [id number] - [id number] Implanted:Qty: 1 on 06/09/2023 by Higinio Connolly MD at [facility] Lens Right: Eye [employer] [id number] 10/27/2025 CNA0T0.19 5 / [id number] / [employer] Lens Iol Cna0t0.200 [facility] Autonom Cna0t0.200 - [id number] - [id number] Implanted:Qty: 1 on 05/19/2023 by Higinio Connolly MD at [facility] Left: Eye [employer] [id number] 10/06/2025 CNA0T0.20 0 / [id number] / Procedures Procedure Name Priority Date/Time Associated Diagnosis Comments SCAN - RADIOLOGY/IMAGING 09/05/2024 9:50 AM CDT SCAN - RADIOLOGY/IMAGING 08/30/2024 3:52 PM CDT SCAN - RADIOLOGY/IMAGING 08/30/2024 8:28 AM CDT SCAN - RADIOLOGY/IMAGING 08/29/2024 4:22 PM CDT SCAN - RADIOLOGY/IMAGING 08/28/2024 9:30 AM CDT [...] Prostate cancer (HCC) DIFFERENTIAL AUTO Routine 07/18/2024 12: 07 PM CDT Prostate cancer (HCC) LACTATE DEHYDROGENASE [...] AM CDT EGFR Routine 06/14/2024 3:48 PM GENERAL SCIENCE TEACHER GABRIELA (acute kidney injury) RENAL FUNCTION PANEL Routine 06/14/2024 3:48 PM GENERAL SCIENCE TEACHER GABRIELA (acute kidney injury) LIPID PANEL Routine 03/08/2023 11:55 AM GENERAL SCIENCE TEACHER Hyperlipidemia, unspecified hyperlipidemia type ALBUMIN CREATININE RATIO, URINE Routine 01/01/2023 10:40 AM CDT Type 2 diabetes mellitus with stage 3a chronic kidney disease, with long-term current use of insulin (HCC) DIABETES EYE EXAM Routine 06/29/2018 from Last 3 Months or Most Recently Relevant to Health Maintenance Results * SCAN - RADIOLOGY/IMAGING (09/05/2024 9:50 AM CDT) Anatomical Region Laterality Modality Other us Provider Scanning Final Result * SCAN - RADIOLOGY/IMAGING (08/30/2024 3:52 PM CDT) Anatomical Region Laterality Modality Other us Provider Scanning Final Result * SCAN - RADIOLOGY/IMAGING (08/30/2024 8:28 AM CDT) Anatomical Region Laterality Modality Other us Provider Scanning Final Result * SCAN - RADIOLOGY/IMAGING (08/29/2024 4:22 PM CDT) Anatomical Region Laterality Modality Other us Provider Scanning Final Result * SCAN - RADIOLOGY/IMAGING (08/28/2024 9:30 AM [...] Large Ketones, ur, POC Negative Negative Specific [place], POC 1.015 1.003 - 1.030 Blood, ur, POC Hemolyzed, trace(A) Negative pH, ur, POC 6.0 5.0 - 8.0 Protein, ur, POC 30.(A) Negative Urobilinogen, urine, POC 0.2 0.2 - 1.0 mg/dL Nitrite, ur, POC Negative Negative Leukocytes, ur, POC Negative Negative Lot Number [id number] Urine 07/19/2024 2:16 PM CDT Result [facility]au ESQUIVEL POINT OF CARE TEST ORDER ALAN Final Result * Urine culture Urine, clean voided (07/19/2024 12:00 PM CDT) Report Final Report: No growth Comment:Testing performed by : [facility], [address], [place]., [address] Urine, clean voided 07/19/2024 12:00 PM CDT 07/20/2024 2:19 AM CDT Narrative [facility] - 07/21/2024 7:38 AM CDT Testing performed by [facility] [phone]) Result [facility] LAB MICROBIOLOGY - GENER AL ORDERABLES Final Result [facility] [address] [place] [address] * (ABNORMAL) eGFR (07/18/2024 12:07 PM CDT) [...] [facility] [place] [address] * (ABNORMAL) Differential, auto (07/18/2024 12:07 PM CDT) Neutrophil abs 17.55(H) 1.50 - 6.50 K/cumm Comment:Testing performed by : [facility], [address] [place] [phone] Lymphocyte abs 0.96 0.80 - 3.30 K/cumm [facility] Comment:Testing performed by : [facility], [address] [place] [phone] Monocyte abs 1.48(H) 0.20 - 0.80 K/cumm [facility] Comment:Testing performed by : [facility], [address] [place], [place] [phone] Eosinophil abs 0.06 0.00 - 0.50 K/cumm [facility] Comment:Testing performed by : [facility], [address] [place], [place] [phone] Basophil abs 0.03 0.00 - 0.10 K/cumm [facility] Comment:Testing performed by : [facility], [address] [place] [address] Neutrophil pct 87.4 % [facility] Comment: Interpretive Data Percent cell count reference ranges are not reported, since discordance with absolute values may lead to misinterpretation of CBC data. Current Interpretive Data was last revised on 2017. Testing performed by: [facility], [address] [place] [address] Lymphocyte pct 4.8 % [facility] Comment: Interpretive Data Percent cell count reference ranges are not reported, since discordance with absolute values may lead to misinterpretation of CBC data. Current Interpretive Data was last revised on 2017. Testing performed by: [facility], [address] [place] [phone] Monocyte pct 7.4 % [facility] Comment: Interpretive Data Percent cell count reference ranges are not reported, since discordance with absolute values may lead to misinterpretation of CBC data. Current Interpretive Data was last revised on 2017. Testing performed by: [facility], [address] [place] [phone] Eosinophil pct 0.3 % [facility] Comment: Interpretive Data Percent cell count reference ranges are not reported, since discordance with absolute values may lead to misinterpretation of CBC data. Current Interpretive Data was last revised on 2017. Testing performed by: [facility], [address] [place] [phone] Basophil pct 0.2 % [facility] Comment: Interpretive Data Percent cell count reference ranges are not reported, since discordance with absolute values may lead to misinterpretation of CBC data. Current Interpretive Data was last revised on 2017. Testing performed by: [facility], [address] [place] [address] Blood 07/18/2024 12:0 7 PM CDT 07/18/2024 12:22 PM CDT us Gautam Cope MD LAB BLOOD ORDERABLES Final Resul t [facility] [place] [address] * (ABNORMAL) CBC with auto differential (07/18/2024 12:07 PM CDT) WBC 20.09(H) 3.80 - 9.90 K/cumm Comment:Testing performed by : [facility], [address] [place] [address] Hgb 12.1(L) 13.0 - 17.5 g/dL [facility] Comment:Testing performed by : [facility], [address] [place] [address] Hct 38.2(L) 38.9 - 50.3 % [facility] Comment:Testing performed by : [facility], [address] [place] [address] Plt 451(H) 150 - 400 K/cumm [facility] Comment:Testing performed by : [facility], [address] [place] [address] MPV 7.7 6.8 - 10.4 fL [facility] Comment:Testing performed by : [facility], [address] [place] [address] RBC 4.46 4.30 - 5.80 M/cumm [facility] Comment:Testing performed by : [facility], [address] [place] [address] MCV 85.5 81.3 - 96.4 fL [facility] Comment:Testing performed by : [facility], [address] [place] [address] MCH 27.1 27.1 - 33.3 pg [facility] Comment:Testing performed by : [facility], [address] [place] [address] MCHC 31.7(L) 32.3 - 35.7 g/dL [facility] Comment:Testing performed by : [facility], [address] [place] [address] RDW CV 14.9 11.1 - 14.9 % [facility] Comment:Testing performed by : [facility], [address] [place] [address] NRBC abs 0.00 0.00 - 0.01 K/cumm [facility] Comment:Testing performed by : [facility], [address] [place] [address] Blood 07/18/2024 12:0 7 PM CDT 07/18/2024 12:22 PM CDT us Gautam Cope MD LAB BLOOD ORDERABLES Final Resul t [facility] Department [place] [address] * PSA diagnostic (07/18/2024 12:07 PM CDT) [...] Resul t Performing Organization Address [facility] de Phone Number [facility] [place] [address] * Lactate dehydrogenase (LD) (07/18/2024 12:07 PM CDT) Lactate dehydrogenase (LDH) 216 100 - 250 Units/L Blood 07/18/2024 12:0 7 PM CDT 07/18/2024 12:25 PM CDT Result [facility] us Gautam Cope MD LAB BLOOD ORDERABLES Final Resul t Performing Organization Address [facility] de Phone Number [facility] [place] [address] * (ABNORMAL) Hemoglobin A1c (07/18/2024 12:07 PM CDT) Hgb A1C 8.0(H) 4.0 - 5.6 % Estimated Average Glucose 183 mg/dL [facility] Comment: The ADA recommends reporting [...] Resul t Performing Organization Address [facility] de Phone Number [facility] [place] [address] * (ABNORMAL) Comprehensive metabolic panel (07/18/2024 12:07 PM CDT) Sodium 142 135 - 145 mmol/L Potassium, pl 4.6 3.3 - 4.9 mmol/L [facility] Chloride 106 97 - 110 mmol/L [facility] CO2 24 22 - 32 mmol/L [facility] Anion gap 12 2 - 15 mmol/L [facility] BUN 52(H) 6 - 25 mg/dL [facility] Creatinine 2.66(H) 0.80 - 1.30 mg/dL [facility] Glucose 164 70 - 199 mg/dL [facility] [...] 9.0 8.5 - 10.3 mg/dL [facility] Bilirubin, total 0.5 0.1 - 1.2 mg/dL [facility] Protein, pl 6.7 6.5 - 8.5 g/dL [facility] Albumin 4.0 3.5 - 5.0 g/dL [facility] Alk phos 126 40 - 130 Units/L [facility] ALT 10 7 - 55 Units/L [facility] AST 13 10 - 50 Units/L [facility] Blood 07/18/2024 12:0 7 PM CDT 07/18/2024 12:25 PM CDT us Gautam Cope MD LAB BLOOD ORDERABLES Final Resul t [facility] Department [place] [address] * SCAN - RADIOLOGY/IMAGING (07/01/2024 9:44 AM CDT) Anatomical Region Laterality Modality Other us Provider Scanning Final Result * (ABNORMAL) eGFR (06/14/2024 3:48 PM GENERAL SCIENCE TEACHER) Pathologist [facility] eGFR 26(L) >=60 mL/min/1. 73 m2 Comment: [...] last reviewed 2021. Blood 06/14/2024 3:48 PM GENERAL SCIENCE TEACHER 06/14/2024 4:07 PM GENERAL SCIENCE TEACHER Lin Guerrero MD LAB BLOOD ORDERABLES Final Resul t [facility] Department [place] [address] * (ABNORMAL) Renal function panel (06/14/2024 3:48 PM GENERAL SCIENCE TEACHER) Pathologist [facility] Sodium 143 135 - 145 mmol/L Potassium, pl 5.0(H) 3.3 - 4.9 mmol/L [facility] Chloride 105 97 - 110 mmol/L [facility] CO2 28 22 - 32 mmol/L [facility] Anion gap 10 2 - 15 mmol/L [facility] BUN 48(H) 6 - 25 mg/dL [facility] Creatinine 2.42(H) 0.80 - 1.30 mg/dL [facility] Glucose 152 70 - 199 mg/dL [facility] [...] 8.7 8.5 - 10.3 mg/dL [facility] Phosphorus, pl 3.1 2.3 - 4.5 mg/dL [facility] Albumin 3.9 3.5 - 5.0 g/dL [facility] Blood 06/14/2024 3:4 8 PM GENERAL SCIENCE TEACHER 06/14/2024 4:03 PM GENERAL SCIENCE TEACHER us Lin Guerrero MD LAB BLOOD ORDERABLES Final Resul t [facility] Department [place] [address] * (ABNORMAL) Lipid panel (03/08/2023 11:55 AM GENERAL SCIENCE TEACHER) Cholesterol 193 30 - 199 mg/dL [facility] Comment: Interpretive Data Ages < [...] revised on 2017. Triglycerides 250(H) <=149 mg/dL [facility] Comment: Interpretive Data Ages < [...] revised on 2017. HDL 36(L) >=40 mg/dL [facility] Comment: Interpretive Data Ages < [...] on 2017. LDL, calculated 107 <=129 mg/dL [facility] Comment: Interpretive Data Ages < or [...] revised on 2017. Non-HDL Cholesterol 157 mg/dL [facility] Comment: Interpretive Data Ages < or [...] last revised on 2017. Chol/HDL ratio 5 [facility] Blood 03/08/2023 11:5 5 AM GENERAL SCIENCE TEACHER 03/08/2023 3:48 PM GENERAL SCIENCE TEACHER Result [facility] Kraig Ching MD LAB BLOOD ORDERABLES Final Re sult Performing Organization Address [facility] de Phone Number [facility] [place] [address] * (ABNORMAL) Albumin Creatinine Ratio, Urine (01/01/2023 10:40 AM CDT) Albumin Ur 227.3 mg/L [facility] [facility] Comment: Interpretive Data No reference range established. Current interpretive data was last revised 2018. Creatinine Ur 66.5 mg/dL [facility] Comment: Interpretive Data No reference range established. Current interpretive data was last revised 2018. Albumin Creatinine Ratio, Ur 342(H) 1 - 29 mg/g [facility] Urine 01/01/2023 10:4 0 AM CDT 01/01/2023 10:45 AM CDT Result [facility] Kraig Ching MD LAB URINE ORDERABLES Final Re sult Performing Organization Address [facility] de Phone Number [facility] Department [place] [address] * DIABETES EYE EXAM (06/29/2018) Diabetic Eye Exam Normal Result [facility] Historical Provider HEALTH MAINTENANCE Final Result from Last 3 Months or Most Recently Relevant to Health Maintenance Insurance [facility]IC[facility] [employer] MEDICARE Advance Directives For more information, please contact: [phone] * Full Code (Latest Code Status on File) Date Activated Date Inactivated Comments 12/16/2017 2:44 PM 12/16/2017 7:18 PM Care Teams Tax Commissioner Relationship Specialty Start Date End Date Kraig Ching MD [address] [facility] [address] [place] [address] PCP - General 07/10/16 Gautam Cope MD [address] [facility] [address] [place] [address] Medical Oncologist/Decal Maker Medical Oncology 08/18/18 Tramaine Roe MD [address] [place] [address] Referring Physician Urology 08/18/18 Sukhwinder Uribe MD [address] [facility] [address] [place] [address] Consulting Physician Urology 08/18/18 Shay Guillermo MD [address] [facility] [address] [place] [address] Referring Physician Urology 08/18/18 Marsha Landis, RN Registered Nurse 11/17/18
--- OUTSIDE RECORDS SUMMARY | 2024-09-09 19:08 | XMS_ITS ---
Author Organization [facility] Address [address] [place] [address] Care Team Providers Care Bag Machine Helper Name Role Phone Kraig Ching MD Primary Care Provider [phone] Gautam Cope MD Unavailable Tramaine Roe MD Unavailable [phone] Sukhwinder Uribe MD Unavailable [phone] Shay Guillermo MD Unavailable [phone] Marsha Landis RN Unavailable Unavailab Active Problems Problem Noted Date Diagnosed Date Statin myopathy 06/08/2024 Essential hypertension 05/30/2024 Type 2 diabetes mellitus wit h stage 3b chronic kidney disease, with long-term current use of insulin 05/30/2024 Assessment & Plan (06/08/2024 4:46 AM FLOWER GRADER): Continue current regimen.Limit nephrotoxins.Reviewed creatinine. Avoid NSAIDS. [...] 03/08/2023 Assessment & Plan (06/08/2024 4:46 AM FLOWER GRADER): Hypertension is controlled. Continue current regimen. Assessment & Plan (10/05/2023 12:54 PM CDT): Hypertension is controlled. Decrease carvedilol to 12.5 mg. Assessment & Plan (03/08/2023 7:11 AM FLOWER GRADER): Hypertension is controlled. Continue current regimen. 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 Avoid NSAIDS. Assessment & Plan (10/05/2023 5:50 AM CDT): Continue current regimen.Limit nephrotoxins.Reviewed creatinine. Avoid NSAIDS. Assessment & Plan (03/08/2023 7:12 AM FLOWER GRADER): Continue current regimen.Limit nephrotoxins.Reviewed creatinine. Avoid NSAIDS. CKD (chronic kidney disease) 03/08/2022 Assessment & Plan (06/08/2024 4:45 AM FLOWER GRADER): Limit nephrotoxins. Monitor creatinine. Avoid NSAIDS.Follow with Nephrology. Anemia in stage 3b chronic kidney disease 2021 Gastroesophageal reflux disease 04/08/2021 Assessment & Plan (03/08/2023 11:17 AM FLOWER GRADER): Reviewed dietary modifications. Continue PPI. Assessment & Plan (08/18/2022 6:36 AM CDT): Reviewed dietary modifications. Continue PPI. Assessment & Plan (02/12/2022 6:03 AM CDT): Reviewed dietary modifications. Continue PPI. Assessment & Plan (04/08/2021 5:55 AM FLOWER GRADER): Reviewed dietary modifications. Continue PPI. 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 Continue home PT exercises. Advised using a walker. Assessment & Plan (08/18/2022 11:47 AM CDT): Continue oxycodone. Continue home PT exercises. Advised using a walker. Assessment & Plan (02/12/2022 11:41 AM CDT): Continue oxycodone. Continue home PT exercises. A prescription for a walker. Assessment & Plan (04/08/2021 5:55 AM FLOWER GRADER): Continue oxycodone. Continue home PT exercises. Continue walker. Assessment & Plan (12/26/2020 10:48 AM CDT): Continue oxycodone. Script for walker. Assessment & Plan (09/26/2020 11:29 AM CDT): Continue ROM exercises and follow with Pain Management. Refill oxycodone as needed. Prostate cancer 09/06/2018 Assessment & Plan (06/08/2024 4:46 AM FLOWER GRADER): Follow with Oncology. Continue Zytiga. Assessment & [...] 01/25/2018 Assessment & Plan (03/07/2018 6:54 AM FLOWER GRADER): Hypertension is controlled. Continue current regimen. CHF [...] creatinine. Assessment & Plan (04/08/2021 5:54 AM FLOWER GRADER): Hypertension is controlled. Continue current regimen.Limit nephrotoxins. [...] NSAIDS. Assessment & Plan (03/07/2018 6:55 AM FLOWER GRADER): Hypertension is controlled. Continue current regimen. Limit nephrotoxins. Monitor creatinine. Avoid NSAIDS. Assessment & Plan (11/25/2017 7:09 AM CDT): Limit nephrotoxins. Monitor creatinine. Avoid NSAIDS. Duodenal ulcer 11/25/2017 Assessment & Plan (11/25/2017 10:16 AM CDT): Reviewed GI note . Continue pantoprazole. Avoid NSAIDS. Refer for EGD. PAF (paroxysmal atrial fibrillation) 10/22/2017 Assessment & Plan (03/07/2018 6:54 AM FLOWER GRADER): Continue rate control. Continue anticoagualtion. Anticipate starting [...] NSAIDS. Assessment & Plan (03/07/2018 6:55 AM FLOWER GRADER): Limit nephrotoxins. Monitor creatinine. Avoid NSAIDS. Assessment [...] diet. Assessment & Plan (04/08/2021 10:17 AM FLOWER GRADER): Reviewed HgBA1C elevated at 10.6 on 04/01/21. [...] therapy. Assessment & Plan (03/07/2018 6:57 AM FLOWER GRADER): Continue pravastatin. He had myalgias on other [...] diet. Assessment & Plan (03/02/2017 6:53 AM FLOWER GRADER): Hypertension is controlled. Continue current regimen. Reviewed low sodium diet. Assessment & Plan (01/15/2017 6:44 AM CDT): Reviewed proper diet. Continue statin therapy. Hyperlipidemia 01/12/2012 Assessment & Plan (06/08/2024 4:46 AM FLOWER GRADER): Continue pravastatin. Order lipid panel at next [...] 05/28/2023 Assessment & Plan (03/08/2023 11:40 AM FLOWER GRADER): Agree with cataract surgery. He has 1st [...] 08/30/2017 Assessment & Plan (03/02/2017 10:48 AM FLOWER GRADER): Mood is improved. Monitor off medication. Impotence [...] 200. Assessment & Plan (03/07/2018 6:56 AM FLOWER GRADER): Continue current regimen. Advised annual eye exam.Limit nephrotoxins. Monitor creatinine. Avoid NSAIDS. Assessment & Plan (11/25/2017 10:16 AM CDT): Continue current regimen and add Januvia.Advised annual eye exam. Limit nephrotoxins. Monitor creatinine. Avoid NSAIDS. Assessment & Plan (01/15/2017 6:44 AM CDT): Continue current regimen. Advised annual eye exam. Reviewed proper diet. Continue statin therapy.
--- OUTSIDE RECORDS SUMMARY | 2024-09-09 19:08 | XMS_ITS | Clinical Summary ---
Author Organization [facility] Address [address] [place] [address] Care Team Providers Care Marine Mammal Trainer Name Role Phone Kraig Ching MD Primary Care Provider [phone] Gautam Cope MD Unavailable Tramaine Roe MD Unavailable [phone] Sukhwinder Uribe MD Unavailable [phone] Shay Guillermo MD Unavailable [phone] Marsha Landis RN Unavailable Unavailab le Allergies [...] 05/30/2024 Assessment & Plan (06/08/2024 4:46 AM REGIONAL LIAISON): Continue current regimen.Limit nephrotoxins.Reviewed creatinine. Avoid NSAIDS. [...] 03/08/2023 Assessment & Plan (06/08/2024 4:46 AM REGIONAL LIAISON): Hypertension is controlled. Continue current regimen. Assessment & Plan (10/05/2023 12:54 PM CDT): Hypertension is controlled. Decrease carvedilol to 12.5 mg. Assessment & Plan (03/08/2023 7:11 AM REGIONAL LIAISON): Hypertension is controlled. Continue current regimen. 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 Avoid NSAIDS. Assessment & Plan (10/05/2023 5:50 AM CDT): Continue current regimen.Limit nephrotoxins.Reviewed creatinine. Avoid NSAIDS. Assessment & Plan (03/08/2023 7:12 AM REGIONAL LIAISON): Continue current regimen.Limit nephrotoxins.Reviewed creatinine. Avoid NSAIDS. CKD (chronic kidney disease) 03/08/2022 Assessment & Plan (06/08/2024 4:45 AM REGIONAL LIAISON): Limit nephrotoxins. Monitor creatinine. Avoid NSAIDS.Follow with Nephrology. Anemia in stage 3b chronic kidney disease 2021 Gastroesophageal reflux disease 04/08/2021 Assessment & Plan (03/08/2023 11:17 AM REGIONAL LIAISON): Reviewed dietary modifications. Continue PPI. Assessment & Plan (08/18/2022 6:36 AM CDT): Reviewed dietary modifications. Continue PPI. Assessment & Plan (02/12/2022 6:03 AM CDT): Reviewed dietary modifications. Continue PPI. Assessment & Plan (04/08/2021 5:55 AM REGIONAL LIAISON): Reviewed dietary modifications. Continue PPI. 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 Continue home PT exercises. Advised using a walker. Assessment & Plan (08/18/2022 11:47 AM CDT): Continue oxycodone. Continue home PT exercises. Advised using a walker. Assessment & Plan (02/12/2022 11:41 AM CDT): Continue oxycodone. Continue home PT exercises. A prescription for a walker. Assessment & Plan (04/08/2021 5:55 AM REGIONAL LIAISON): Continue oxycodone. Continue home PT exercises. Continue walker. Assessment & Plan (12/26/2020 10:48 AM CDT): Continue oxycodone. Script for walker. Assessment & Plan (09/26/2020 11:29 AM CDT): Continue ROM exercises and follow with Pain Management. Refill oxycodone as needed. Prostate cancer 09/06/2018 Assessment & Plan (06/08/2024 4:46 AM REGIONAL LIAISON): Follow with Oncology. Continue Zytiga. Assessment & [...] 01/25/2018 Assessment & Plan (03/07/2018 6:54 AM REGIONAL LIAISON): Hypertension is controlled. Continue current regimen. CHF [...] creatinine. Assessment & Plan (04/08/2021 5:54 AM REGIONAL LIAISON): Hypertension is controlled. Continue current regimen.Limit nephrotoxins. [...] NSAIDS. Assessment & Plan (03/07/2018 6:55 AM REGIONAL LIAISON): Hypertension is controlled. Continue current regimen. Limit nephrotoxins. Monitor creatinine. Avoid NSAIDS. Assessment & Plan (11/25/2017 7:09 AM CDT): Limit nephrotoxins. Monitor creatinine. Avoid NSAIDS. Duodenal ulcer 11/25/2017 Assessment & Plan (11/25/2017 10:16 AM CDT): Reviewed GI note . Continue pantoprazole. Avoid NSAIDS. Refer for EGD. PAF (paroxysmal atrial fibrillation) 10/22/2017 Assessment & Plan (03/07/2018 6:54 AM REGIONAL LIAISON): Continue rate control. Continue anticoagualtion. Anticipate starting [...] NSAIDS. Assessment & Plan (03/07/2018 6:55 AM REGIONAL LIAISON): Limit nephrotoxins. Monitor creatinine. Avoid NSAIDS. Assessment [...] diet. Assessment & Plan (04/08/2021 10:17 AM REGIONAL LIAISON): Reviewed HgBA1C elevated at 10.6 on 04/01/21. [...] therapy. Assessment & Plan (03/07/2018 6:57 AM REGIONAL LIAISON): Continue pravastatin. He had myalgias on other [...] diet. Assessment & Plan (03/02/2017 6:53 AM REGIONAL LIAISON): Hypertension is controlled. Continue current regimen. Reviewed low sodium diet. Assessment & Plan (01/15/2017 6:44 AM CDT): Reviewed proper diet. Continue statin therapy. Hyperlipidemia 01/12/2012 Assessment & Plan (06/08/2024 4:46 AM REGIONAL LIAISON): Continue pravastatin. Order lipid panel at next [...] 05/28/2023 Assessment & Plan (03/08/2023 11:40 AM REGIONAL LIAISON): Agree with cataract surgery. He has 1st [...] 08/30/2017 Assessment & Plan (03/02/2017 10:48 AM REGIONAL LIAISON): Mood is improved. Monitor off medication. Impotence [...] 200. Assessment & Plan (03/07/2018 6:56 AM REGIONAL LIAISON): Continue current regimen. Advised annual eye exam.Limit [...] Orders Only [facility] [address] [place] [address] Scanning, Provider 08/30/2024 Orders Only [facility] [address] [place] [address] Scanning, Provider 08/29/2024 Orders Only [facility] [address] [place] [address] Scanning, Provider 08/28/2024 Orders Only [facility] [address] [place] [address] Scanning, Provider 08/25/2024 Telephone [facility] [place] [phone] Kraig Ching MD ZAK Questions 08/24/2024 Telephone [facility] [address] [place] [phone] Kraig Ching MD Medical Question/Miscellaneous 08/21/2024 Telephone [place] [address] [facility] [address] [place] [phone] Kraig Ching MD Additional Services Or Orders 08/21/2024 Telephone [facility] [address] [facility] [address] [place] [phone] Kraig Ching MD Medical Question/Miscellaneous 07/31/2024 Orders Only [facility] [address] [place] [address] Scanning, Provider 07/24/2024 Telephone [facility] Oncology [address] [place] [address] Floor [address] [place] [address] Gautam Cope MD 07/22/2024 Orders Only [facility] [address] [place] [address] Scanning, Provider 07/21/2024 Results Follow-Up [facility] at [address] [phone] Fadi Corrales NP Urine culture Urine, clean voided 07/19/2024 7:45 PM CDT - 07/19/2024 11:59 PM CDT Hospital Encounter [address] [address] Urinary frequency Discharge Disposition: Discharge to home or self care 07/19/2024 2:00 PM CDT Office Visit [facility] at [address] [phone] Clau Childers PA Urinary frequency (Primary Dx); Leukocytosis, unspecified type 07/18/2024 1:45 PM CDT Infusion [facility] - Infusion [address] [facility] Floor [address] [place] [address] Prostate cancer (HCC) (Primary Dx) 07/18/2024 1:00 PM CDT Office Visit [facility] Oncology [facility] Floor [address] [place] [phone] Gautam Cope MD Prostate cancer (HCC) (Primary Dx) 07/18/2024 12:00 PM CDT Lab [facility] - Lab Collection [address] [facility] [address] [place] [address] Prostate cancer (HCC) 07/18/2024 Patient Self-Triage [facility] [address] [place] [address] Mychart, Generic Provider 07/01/2024 Orders Only [facility] [address] [place] [address] Scanning, Provider 06/14/2024 6:15 PM REGIONAL LIAISON Lab [facility] [address] [place] [phone] GABRIELA (acute kidney injury) 06/14/2024 3:00 PM REGIONAL LIAISON Office Visit [facility] Nephrology [address] [facility] 5th Floor [address] [place] [phone] Lin Guerrero MD Chronic kidney disease, stage 3b (HCC) (Primary Dx); GABRIELA (acute kidney injury); Hypertension, essential; Secondary hyperparathyroidism of renal origin from Last 3 Months Immunizations Immunization Administration Dates Next Due Influenza, Quad, Adjuvantate d, Intramuscular 02/22/2021 Influenza, Quadrivalent, Amelia l Culture-based MDCK, Preservative Free, Antibiotic Free, Intramuscular 02/06/2020 Influenza, Quadrivalent, Hig h Dose, Preservative Free, Intrr 12/21/2022,02/12/2022 Influenza, Quadrivalent, Spl it, Preservative Free, Intramuscular 01/14/2015 Influenza, Trivalent, High D ose, Split, Preservative Free, Intramuscular 01/17/2019 Influenza, Unspecified 01/17/2019(Deferred: Daisy ent Refused) SomnoMed (J&J) SARS-CoV-2 Vaccination 06/14/2020, 06/14/2020 eReplacements SARS-CoV-2 Monovalent Vaccination (12+ Yrs) PURPLE 03/05/2021,02/22/2021 [...] pur e alcohol) Occasional glass of wine. [facility] Utilities Answer Date Recorded In the past 12 months has [employer], gas, oil, or water [employer] threatened to shut off services in your [...] any clubs o r organizations such as yarsanism groups, unions, fraternal or athletic groups, or [...] any time in the past 12 m [facility], were you homeless or living in [...] file Legal Sex Male 4:46 PM REGIONAL LIAISON Gender Identity Not on file Sexual [...] 175.3 cm (5' 9) 06/14/2024 2:58 PM REGIONAL LIAISON Body Mass Index 29.98 06/14/2024 2:58 PM REGIONAL LIAISON Plan of Treatment Health Maintenance Due Date [...] General Goal - Patient establishes care with [facility] ACO Care Management On track(2023 1:22 PM REGIONAL LIAISON) No Clarissa Luna RN Note: Problem: Lack of [facility] communication Interventions: - Provide coordination between [facility] company and patient. - Ensure [facility] has appropriate referral and orders to establish care with patient. - Follow up with patient to ensure initial visit was completed by [facility] and that a [facility] plan has been started. ZAK General Goal - Patient schedules and keeps appointments with all recommended providers ACO Care Management Improving( 1:22 PM REGIONAL LIAISON) No Clarissa Luna RN Note: Problem: Potential [...] medication regimen. Medical Devices Implanted Type Area Die Lay Out Worker Device Identifier Shelf Expiration Date Model / Serial / Lot [employer] Lens Iol Cna0t0.195 Clareon Uva Autonom Cna0t0.195 - [id number] - [id number] Implanted:Qty: 1 on 06/09/2023 by Higinio Connolly MD at [facility] Lens Right: Eye [employer] [id number] 10/27/2025 CNA0T0.19 5 / [id number] / [employer] Lens Iol Cna0t0.200 [employer] Autonom Cna0t0.200 - [id number] - [id number] Implanted:Qty: 1 on 05/19/2023 by Higinio Connolly MD at [facility] Left: Eye [employer] [id number] 10/06/2025 CNA0T0.20 0 / [id number] / Procedures Procedure Name Priority Date/Time [...] AM CDT EGFR Routine 06/14/2024 3:48 PM REGIONAL LIAISON GABRIELA (acute kidney injury) RENAL FUNCTION PANEL Routine 06/14/2024 3:48 PM REGIONAL LIAISON GABRIELA (acute kidney injury) LIPID PANEL Routine 03/08/2023 11:55 AM REGIONAL LIAISON Hyperlipidemia, unspecified hyperlipidemia type ALBUMIN CREATININE RATIO, [...] Large Ketones, ur, POC Negative Negative Specific [place], POC 1.015 1.003 - 1.030 Blood, ur, POC Hemolyzed, trace(A) Negative pH, ur, POC 6.0 5.0 - 8.0 Protein, ur, POC 30.(A) Negative Urobilinogen, urine, POC 0.2 0.2 - 1.0 mg/dL Nitrite, ur, POC Negative Negative Leukocytes, ur, POC Negative Negative Lot Number [id number] Urine 07/19/2024 2:16 PM CDT Clau [facility]QU[facility] POINT OF CARE TEST ORDER ALAN Final Result * Urine culture Urine, clean voided (07/19/2024 12:00 PM CDT) Report Final Report: No growth Comment:Testing performed by : [facility], [address] [place]., [address] Urine, clean voided 07/19/2024 12:00 PM CDT 07/20/2024 2:19 AM CDT Narrative MERLINE Conrad 07/21/2024 7:38 AM CDT Testing performed by [facility] Microbiology Laboratory ([phone]) Clau [facility]QU[facility] LAB MICROBIOLOGY - GENER AL ORDERABLES Final Result MERLINE [address] Department [place] [address] * (ABNORMAL) eGFR (07/18/2024 12:07 PM CDT) [...] Final Resul t [facility] [place] [address] * (ABNORMAL) Differential, auto (07/18/2024 12:07 PM CDT) Neutrophil abs 17.55(H) 1.50 - 6.50 K/cumm Comment:Testing performed by : [facility] Heme Lab, [address] [place] [address] Lymphocyte abs 0.96 0.80 - 3.30 K/cumm [facility] Comment:Testing performed by : [facility], [address] [place], [place] [phone] Monocyte abs 1.48(H) 0.20 - 0.80 K/cumm [facility] Comment:Testing performed by : [facility], [address] [place], [place] [phone] Eosinophil abs 0.06 0.00 - 0.50 K/cumm [facility] Comment:Testing performed by : [facility], [address] [place] [phone] Basophil abs 0.03 0.00 - 0.10 K/cumm [facility] Comment:Testing performed by : [facility], [address] [place] [phone] Neutrophil pct 87.4 % CERNER [facility] Comment: Interpretive Data Percent cell count reference ranges are not reported, since discordance with absolute values may lead to misinterpretation of CBC data. Current Interpretive Data was last revised on 2017. Testing performed by: [facility], [address] [place] [phone] Lymphocyte pct 4.8 % C[facility]ER [facility] Comment: Interpretive Data Percent cell count reference ranges are not reported, since discordance with absolute values may lead to misinterpretation of CBC data. Current Interpretive Data was last revised on 2017. Testing performed by: [facility], [address] [place] [phone] Monocyte pct 7.4 % MERLINE PERDOMO Comment: Interpretive Data Percent cell count reference ranges are not reported, since discordance with absolute values may lead to misinterpretation of CBC data. Current Interpretive Data was last revised on 2017. Testing performed by: [facility], [address] [place] [phone] Eosinophil pct 0.3 % MERLINE PER[facility] Comment: Interpretive Data Percent cell count reference ranges are not reported, since discordance with absolute values may lead to misinterpretation of CBC data. Current Interpretive Data was last revised on 2017. Testing performed by: [facility]Note 3[facility] Lab, [address] [place] [phone] Basophil pct 0.2 % MERLINE PERDOMO Comment: Interpretive Data Percent cell count reference ranges are not reported, since discordance with absolute values may lead to misinterpretation of CBC data. Current Interpretive Data was last revised on 2017. Testing performed by: [facility], [address] [place] [phone] Blood 07/18/2024 12:0 7 PM CDT 07/18/2024 12:22 PM CDT us Gautam Cope MD LAB BLOOD ORDERABLES Final Resul t MERLINE PERDOMO [facility] [place] [address] * (ABNORMAL) CBC with auto differential (07/18/2024 12:07 PM CDT) WBC 20.09(H) 3.80 - 9.90 K/cumm Comment:Testing performed by : [facility], [address] [place] [phone] Hgb 12.1(L) 13.0 - 17.5 g/dL MERLINE PERDOMO Comment:Testing performed by : [facility], [address] [place] [address] Hct 38.2(L) 38.9 - 50.3 % C[facility]ER [facility] Comment:Testing performed by : [facility], [address] [place] [address] Plt 451(H) 150 - 400 K/cumm [facility] Comment:Testing performed by : [facility], [address] [place] [address] MPV 7.7 6.8 - 10.4 fL [facility] Comment:Testing performed by : [facility], [address] [place], [place] [phone] RBC 4.46 4.30 - 5.80 M/cumm [facility] Comment:Testing performed by : [facility], [address] [place], [place] [phone] MCV 85.5 81.3 - 96.4 fL [facility] Comment:Testing performed by : [facility], [address] [place], [place] [phone] MCH 27.1 27.1 - 33.3 pg [facility] Comment:Testing performed by : [facility], [address] [place] [address] MCHC 31.7(L) 32.3 - 35.7 g/dL [facility] Comment:Testing performed by : [facility], [address] [place] [address] RDW CV 14.9 11.1 - 14.9 % [facility] Comment:Testing performed by : [facility], [address] [place] [address] NRBC abs 0.00 0.00 - 0.01 K/cumm [facility] Comment:Testing performed by : [facility], [address] [place] [address] Blood 07/18/2024 12:0 7 PM CDT 07/18/2024 12:22 PM CDT us Gautam Cope MD LAB BLOOD ORDERABLES Final Resul t Performing Organization Address [facility] Co de Phone Number MERLINE [facility] [email or web address] [address] * PSA diagnostic (07/18/2024 12:07 PM CDT) [...] ORDERABLES Final Resul t Performing Organization Address [facility] Co de Phone Number MERLINE [facility] [email or web address] [address] * Lactate dehydrogenase (LD) (07/18/2024 12:07 PM CDT) Lactate dehydrogenase (LDH) 216 100 - 250 Units/L Blood 07/18/2024 12:0 7 PM CDT 07/18/2024 12:25 PM CDT us Gautam Cope MD LAB BLOOD ORDERABLES Final Resul t Performing Organization Address [facility] Co de Phone Number MERLINE [facility] [email or web address] [address] * (ABNORMAL) Hemoglobin A1c (07/18/2024 12:07 PM CDT) Hgb A1C 8.0(H) 4.0 - 5.6 % Estimated Average Glucose 183 mg/dL [facility] Comment: The ADA recommends reporting [...] Final Resul t [facility] [place] [address] * (ABNORMAL) Comprehensive metabolic panel (07/18/2024 12:07 PM CDT) Sodium 142 135 - 145 mmol/L Potassium, pl 4.6 3.3 - 4.9 mmol/L [facility] Chloride 106 97 - 110 mmol/L [facility] CO2 24 22 - 32 mmol/L [facility] Anion gap 12 2 - 15 mmol/L [facility] BUN 52(H) 6 - 25 mg/dL [facility] Creatinine 2.66(H) 0.80 - 1.30 mg/dL [facility] Glucose 164 70 - 199 mg/dL [facility] [...] 2022. Calcium 9.0 8.5 - 10.3 mg/dL [facility] Bilirubin, total 0.5 0.1 - 1.2 mg/dL [facility] Protein, pl 6.7 6.5 - 8.5 g/dL [facility] Albumin 4.0 3.5 - 5.0 g/dL [facility] Alk phos 126 40 - 130 Units/L [facility] ALT 10 7 - 55 Units/L [facility] AST 13 10 - 50 Units/L [facility] Blood 07/18/2024 12:0 7 PM CDT 07/18/2024 12:25 PM CDT Gautam Cope MD LAB BLOOD ORDERABLES Final Resul t [facility] [place] [address] * SCAN - RADIOLOGY/IMAGING (07/01/2024 9:44 AM CDT) Anatomical Region Laterality Modality Other us Provider Scanning Final Result * (ABNORMAL) eGFR (06/14/2024 3:48 PM REGIONAL LIAISON) eGFR 26(L) >=60 mL/min/1. 73 m2 Comment: [...] last reviewed 2021. Blood 06/14/2024 3:48 PM REGIONAL LIAISON 06/14/2024 4:07 PM REGIONAL LIAISON iLn Guerrero MD LAB BLOOD ORDERABLES Final Resul t Performing Organization Address City/[facility]/ZIP Co de Phone Number MERLINE [facility] Department [email or web address] [address] * (ABNORMAL) Renal function panel (06/14/2024 3:48 PM REGIONAL LIAISON) Sodium 143 135 - 145 mmol/L Potassium, pl 5.0(H) 3.3 - 4.9 mmol/L [facility] Chloride 105 97 - 110 mmol/L [facility] CO2 28 22 - 32 mmol/L [facility] Anion gap 10 2 - 15 mmol/L [facility] BUN 48(H) 6 - 25 mg/dL [facility] Creatinine 2.42(H) 0.80 - 1.30 mg/dL [facility] Glucose 152 70 - 199 mg/dL [facility] [...] 2022. Calcium 8.7 8.5 - 10.3 mg/dL [facility] Phosphorus, pl 3.1 2.3 - 4.5 mg/dL [facility] Albumin 3.9 3.5 - 5.0 g/dL [facility] Blood 06/14/2024 3:48 PM REGIONAL LIAISON 06/14/2024 4:03 PM REGIONAL LIAISON Lin Guerrero MD LAB BLOOD ORDERABLES Final Resul t Performing Organization Address City/[facility]/ZIP Co de Phone Number MERLINE [facility] [place] [address] * (ABNORMAL) Lipid panel (03/08/2023 11:55 AM REGIONAL LIAISON) Cholesterol 193 30 - 199 mg/dL [facility] Comment: Interpretive Data Ages < or [...] revised on 2017. Triglycerides 250(H) <=149 mg/dL [facility] Comment: Interpretive Data Ages < or [...] revised on 2017. HDL 36(L) >=40 mg/dL [facility] Comment: Interpretive Data Ages < [...] on 2017. LDL, calculated 107 <=129 mg/dL [facility] Comment: Interpretive Data Ages < [...] revised on 2017. Non-HDL Cholesterol 157 mg/dL [facility] Comment: Interpretive Data Ages < [...] last revised on 2017. Chol/HDL ratio 5 [facility] Blood 03/08/2023 11:5 5 AM REGIONAL LIAISON 03/08/2023 3:48 PM REGIONAL LIAISON Kraig Ching MD LAB BLOOD ORDERABLES Final Re sult [facility] [place] [address] * (ABNORMAL) Albumin Creatinine Ratio, Urine (01/01/2023 10:40 AM CDT) Albumin Ur 227.3 mg/L [facility] Comment: Interpretive Data No reference range established. Current interpretive data was last revised 2018. Creatinine Ur 66.5 mg/dL [facility] Comment: Interpretive Data No reference range established. Current interpretive data was last revised 2018. Albumin Creatinine Ratio, Ur 342(H) 1 - 29 mg/g [facility] Urine 01/01/2023 10:4 0 AM CDT 01/01/2023 10:45 AM CDT Kraig Ching MD LAB URINE ORDERABLES Final Re sult [facility] [place] [address] * DIABETES EYE EXAM (06/29/2018) Diabetic Eye Exam Normal Historical Provider HEALTH MAINTENANCE Final Result from Last 3 Months or Most Recently Relevant to Health Maintenance Insurance [employer] MEDICARE [employer] MEDICARE T MEDICARE AET MEDICARE Advance Directives For more information, please contact: [phone] * Full Code (Latest Code Status on File) Date Activated Date Inactivated Comments 12/16/2017 2:44 PM 12/16/2017 7:18 PM Care Teams Marine Mammal Trainer Relationship Specialty Start Date End Date Kraig Ching MD [address] [address] PCP - General 07/10/16 Gautam Cope MD [address] [facility] [address] [place] [address] Medical Oncologist/Vending Supervisor Medical Oncology 08/18/18 Tramaine Roe MD [address] [facility] [address] [place] [address] Referring Physician Urology 08/18/18 Sukhwinder Uribe MD [address] [facility] [address] [place] [address] Consulting Physician Urology 08/18/18 Shay Guillermo MD [address] [facility] [address] [place] [address] Referring Physician Urology 08/18/18 Marsha Landis, RN Registered Nurse 11/17/18
--- OUTSIDE RECORDS SUMMARY | 2024-09-09 19:08 | XMS_ITS | Encounter Summary ---
Author Organization [facility] Healthcare Address [address] [place] [address] Care Team Providers Care Product Developer Name Role Phone Kraig Ching MD Primary Care Provider [phone] Gautam Cope MD Unavailable Tramaine Roe MD Unavailable [phone] Sukhwinder Uribe MD Unavailable [phone] Shay Guillermo MD Unavailable [phone] Marsha Landis RN Unavailable Unavailab le Encounter Details Date Type Department Care Team (Late st Contact Info) Description 09/05/2024 Orders Only [facility] Health Information Management [address] [place] [address] Scanning, Provider Social History Tobacco Use Types Packs/Day Years Used Date Smoking Tobacco: Former Cigarettes 0.3 52 1 958 - 2009 Passive Smoke Exposure: Past Smokeless Tobacco: Never Comments:Smoking History Pac ks/day: 10 Cigarettes Alcohol Use Standard Drinks/Week Comments Yes 0 (1 standard drink = 0.6 oz pur e alcohol) Occasional glass of wine. [facility] Utilities Answer Date Recorded In the past 12 months has [employer] electric, gas, oil, or water company threatened [...] often do you attend chur ch or judaism services? Never 04/04/2024 Do you belong to any clubs o r organizations such as advent groups, unions, fraternal or athletic groups, or [...] any time in the past 12 m [facility], were you homeless or living in a long-term (including now)? No 04/04/2024 Personal Safety Answer Date Recorded Have you ever been in or are you currently in a harmful physical or emotional relationship or is someone making you feel afraid or unsafe? 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 Author ZAK General Goal - Patient establishes care with [facility] ACO Care Management On track(2023 1:22 PM SOCK KNITTING MACHINE OPERATOR) No Clarissa Luna RN Note: Problem: Lack of [facility] communication Interventions: - Provide coordination between [facility] company and patient. - Ensure [facility] has appropriate referral and orders to establish care with patient. - Follow up with patient to ensure initial visit was completed by [facility] and that a [facility] plan has been started. ZAK General Goal - Patient schedules and keeps appointments with all recommended providers ACO Care Management Improving( 1:22 PM SOCK KNITTING MACHINE OPERATOR) No Clarissa Luna RN Note: [...] SCAN - RADIOLOGY/IMAGING 09/05/2024 9:50 AM CDT documented in this encounter Results * SCAN - RADIOLOGY/IMAGING (09/05/2024 9:50 AM CDT) Anatomical Region Laterality Modality Other Provider Scanning Final Result documented in this encounter Visit Diagnoses Not on filedocumented in this encounter Care Teams Product Developer Relationship Specialty Start Date End Date Kraig Ching MD [address] [place] [address] PCP - General 07/10/16 Gautam Cope MD [address] [place] [address] Medical Oncologist/[place] Medical Oncology 08/18/18 Tramaine Roe MD [address] [place] [address] Referring Physician Urology 08/18/18 Sukhwinder Uribe MD [address] [place] [address] Consulting Physician Urology 08/18/18 Shay Guillermo MD [address] [place] [address] Referring Physician Urology 08/18/18 Marsha Landis, RN Registered Nurse 11/17/18 documented as of this encounter
--- OUTSIDE RECORDS SUMMARY | 2024-09-09 19:08 | XMS_ITS | Encounter Summary ---
Author Organization [facility] Healthcare Address [address] [place] [address] Care Team Providers Care Mechanical Integrity Engineer Name Role Phone Kraig Ching MD Primary Care Provider [phone] Gautam Cope MD Unavailable Tramaine Roe MD Unavailable [phone] Sukhwinder Uribe MD Unavailable [phone] Shay Guillermo MD Unavailable [phone] Marsha Landis RN Unavailable Unavailab le Reason for Visit * Reason Onset Date Comments Medical Question/Miscellaneous 08/21/2024 Encounter Details Date Type Department Care Team (Late st Contact Info) Description 08/21/2024 Telephone [facility] [address] [place] [address] Kraig Ching MD [address] [facility] [address] [place] [address] Medical Question/Miscellaneous Social History Tobacco Use Types Packs/Day Years Used Date Smoking Tobacco: Former Cigarettes 0.3 52 1 958 - 2010 Passive Smoke Exposure: Past Smokeless Tobacco: Never Comments:Smoking History Pac ks/day: 10 Cigarettes Alcohol Use Standard Drinks/Week Comments Yes 0 (1 standard drink = 0.6 oz pur e alcohol) Occasional glass of wine. 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. He can uber however it is too expensive and hewill be going 3 days a week and has not issues with driving and drives to Dr. Encarnacion office oftenand they advised him that he will need something from provider advising he can drive to the location for rehab. Patient would like a call to discuss further.The rehab center is located at [address] [place] [address] Does message need to be routed? Yes-Action Needed documented in this encounter Plan of Treatment Not on file documented as of this encounter Goals Goal Patient Goal Type Associated Problems Recent Progress Patient-Stated? Author ZAK General Goal - Patient establishes care with [facility] ACO Care Management On track(2023 1:22 PM SENIOR INFORMATION DEVELOPER) No Clarissa Luna RN Note: Problem: Lack of [facility] communication Interventions: - Provide coordination between [facility] company and patient. - Ensure [facility] has appropriate referral and orders to establish care with patient. - Follow up with patient to ensure initial visit was completed by [facility] and that a [facility] plan has been started. ZAK General Goal - Patient schedules and keeps appointments with all recommended providers ACO Care Management Improving( 1:22 PM SENIOR INFORMATION DEVELOPER) Clarissa Arana RN Note: Problem: Potential for [...] filedocumented in this encounter Care Teams Mechanical Integrity Engineer Relationship Specialty Start Date End Date Kraig Ching MD [address] [place] [address] PCP - General 07/10/16 Gautam Cope MD [address] [place] [address] Medical Oncologist/[place] Medical Oncology 08/18/18 Tramaine Roe MD [address] [place] [address] Referring Physician Urology 08/18/18 Sukhwinder Uribe MD [address] [place] [address] Consulting Physician Urology 08/18/18 Shay Guillermo MD [address] [place] [address] Referring Physician Urology 08/18/18 Marsha Landis, RN Registered Nurse 11/17/18 documented as of this encounter
--- OUTSIDE RECORDS SUMMARY | 2024-09-09 19:08 | XMS_ITS | Encounter Summary ---
Author Organization [facility] Healthcare Address [address] [place] [address] Care Team Providers Care Java Front End Web Developer Name Role Phone Kraig Ching MD Primary Care Provider [phone] Gautam Cope MD Unavailable Tramaine Roe MD Unavailable Sukhwinder Uribe MD Unavailable [phone] Shay Guillermo MD Unavailable [phone] Marsha Landis RN Unavailable Unavailab le Reason for Visit * Reason Onset Date Comments ZAK Questions 08/25/2024 Encounter Details Date Type Department Care Team (Late st Contact Info) Description 08/25/2024 Telephone [facility] [address] [facility] [address] [place] [address] Kraig Ching MD [address] [facility] [address] [place] [address] ZAK Questions Social History Tobacco Use Types Packs/Day Years Used Date Smoking Tobacco: Former Cigarettes 0.3 52 1 958 - 2010 Passive Smoke Exposure: Past Smokeless Tobacco: Never Comments:Smoking History Pac ks/day: 10 Cigarettes Alcohol Use Standard Drinks/Week Comments Yes 0 (1 standard drink = 0.6 oz pur e alcohol) Occasional glass of wine. 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 Yes Date Admitted: 08/01/24 Date Discharged: 08/19/24 Facility Admitted To: [facility] Reason for Stay? Kidney issues If prescribed [...] General Goal - Patient establishes care with [facility] ACO Care Management On track(2023 1:22 PM WET PROCESS MILLER HEAD) Clarissa Arana, RN Note: Problem: Lack of [facility] communication Interventions: - Provide coordination between [facility] company and patient. - Ensure [facility] has appropriate referral and orders to establish care with patient. - Follow up with patient to ensure initial visit was completed by [facility] and that a [facility] plan has been started. ZAK General Goal - Patient schedules and keeps appointments with all recommended providers ACO Care Management Improving( 1:22 PM WET PROCESS MILLER HEAD) Clarissa Arana RN Note: Problem: Potential for [...] on filedocumented in this encounter Care Teams Java Front End Web Developer Relationship Specialty Start Date End Date Kraig Ching MD [address] [place] [address] PCP - General 07/10/16 Gautam Cope MD [address] [place] [address] Medical Oncologist/Coal Hauler Operator Medical Oncology 08/18/18 Tramaine Roe MD [address] [place] [address] Referring Physician Urology 08/18/18 Sukhwinder Uribe MD [address] [place] [address] Consulting Physician Urology 08/18/18 Shay Guillermo MD [address] [place] [address] Referring Physician Urology 08/18/18 Marsha Landis, RN Registered Nurse 11/17/18 documented as of this encounter
--- OUTSIDE RECORDS SUMMARY | 2024-09-09 19:08 | XMS_ITS | Encounter Summary ---
Author Organization [facility] Healthcare Address [address] [place] [address] Care Team Providers Care Cycling Instructor Name Role Phone Kraig Ching MD Primary Care Provider [phone] Gautam Cope MD Unavailable Tramaine Roe MD Unavailable [phone] Sukhwinder Uribe MD Unavailable [phone] Shay Guillermo MD Unavailable [phone] Marsha Landis RN Unavailable Unavailab le Reason for Visit * Reason Onset Date Comments Medical Question/Miscellaneous 08/24/2024 Encounter Details Date Type Department Care Team (Late st Contact Info) Description 08/24/2024 Telephone [facility] [address] [place] [address] Kraig Ching MD [address] [facility] [address] [place] [address] Medical Question/Miscellaneous Social History Tobacco Use Types Packs/Day Years Used Date Smoking Tobacco: Former Cigarettes 0.3 52 1 958 - 2010 Passive Smoke Exposure: Past Smokeless Tobacco: Never Comments:Smoking History Pac ks/day: 10 Cigarettes Alcohol Use Standard Drinks/Week Comments Yes 0 (1 standard drink = 0.6 oz pur e alcohol) Occasional glass of wine. [facility] Utilities Answer Date Recorded In the past 12 months has [employer] electric, gas, oil, or water company threatened [...] often do you attend chur ch or baptist services? Never 04/04/2024 Do you belong to any clubs o r organizations such as spiritism groups, unions, fraternal or athletic groups, or [...] time in the past 12 m [facility], were you homeless or living in a penitentiary (including now)? No 04/04/2024 Personal Safety Answer Date Recorded Have you ever been in or are you currently in a harmful physical or emotional relationship or is someone making you feel afraid or unsafe? Denies 06/09/2023 Sex and Gender Information Value Date Recorded Sex Assigned at Not on file Legal Sex Male 4:46 PM CORRECTIONAL FACILITY PSYCHIATRIST Gender Identity Not on file Sexual Orientation Not on file documented as of this encounter Miscellaneous Notes * Telephone Encounter - ChrisneySteph - 08/24/2024 10:07 AM CDT Medical Question/Miscellaneous [...] General Goal - Patient establishes care with [facility] ACO Care Management On track(2023 1:22 PM CORRECTIONAL FACILITY PSYCHIATRIST) No Clarissa Luna RN Note: Problem: Lack of [facility] communication Interventions: - Provide coordination between [facility] company and patient. - Ensure [facility] has appropriate referral and orders to establish care with patient. - Follow up with patient to ensure initial visit was completed by [facility] and that a [facility] plan has been started. ZAK General Goal - Patient schedules and keeps appointments with all recommended providers ACO Care Management Improving( 1:22 PM CORRECTIONAL FACILITY PSYCHIATRIST) No Clarissa Luna RN Note: Problem: Potential [...] on filedocumented in this encounter Care Teams Cycling Instructor Relationship Specialty Start Date End Date Kraig Ching MD [address] [place] [address] PCP - General 07/10/16 Gautam Cope MD [address] [place] [address] Medical Oncologist/Steam Hand Medical Oncology 08/18/18 Tramaine Roe MD [address] [place] [address] Referring Physician Urology 08/18/18 Sukhwinder Uribe MD [address] [place] [address] Consulting Physician Urology 08/18/18 Shay Guillermo MD [address] [facility] [address] [place] [address] Referring Physician Urology 08/18/18 Marsha Landis, RN Registered Nurse 11/17/18 documented as of this encounter
--- OUTSIDE RECORDS SUMMARY | 2024-09-09 19:08 | XMS_ITS | Encounter Summary ---
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 Gender Identity Not on file Sexual Orientation Not on file documented as of this encounter Functional Status documented as of this encounter Plan of Treatment Scheduled Orders Name Type Priority Associated Diagnoses Orde r Schedule CARDIOLOGY DOCUMENT SCAN Cardiac Services Ordered: 03/21/2023 documented as of this encounter Visit Diagnoses Not on filedocumented in this encounter Care Teams Director Of Sports Medicine Relationship Specialty Start Date End Date Kraig Ching MD [address] [facility] [address] [place] [address] PCP - General 07/10/16 Gautam Cope MD [address] [facility] [address] [place] [address] Medical Oncologist/Solar Sales Rep Medical Oncology 08/18/18 Tramaine Roe MD [address] [facility] [address] [place] [address] Referring Physician Urology 08/18/18 Sukhwinder Uribe MD [address] [facility] [address] [place] [address] Consulting Physician Urology 08/18/18 Shay Guillermo MD [address] [facility] [address] [place] [address] Referring Physician Urology 08/18/18 Marsha Landis RN Registered Nurse 11/17/18 lCarissa Luna RN [address] [place] [address] [address] [place] [address] Analyst Food And Beverage 04/04/24 04/26/24 documented as of this encounter
--- OUTSIDE RECORDS SUMMARY | 2024-09-09 19:08 | XMS_ITS | Encounter Summary ---
Author Organization [facility] Address [address] [place] [address] Phone Care Team Providers Care Customer Account Executive Name Role Phone Kraig Ching MD Primary Care Provider [phone] Gautam Cope MD Unavailable Tramaine Roe MD Unavailable [phone] Sukhwinder Uribe MD Unavailable [phone] Shay Guillermo MD Unavailable [phone] Marsha Landis RN Unavailable Unavailab Ilene Kaur RN Unavailable [phone] Clarissa Luna RN Unavailable [phone] Encounter Details Date Type Department Care Team (Late st Contact Info) Description 12/06/2018 Telephone [facility] Oncology [address] [facility] Advanced Medicine 7th [place] [address] Salena Bryan NP [address] [place] [address] Social History Tobacco Use Types Packs/Day Years [...] on file Legal Sex Male 4:46 PM RAMPMAN Gender Identity Not on file Sexual Orientation Not on file documented as of this encounter Plan of Treatment Not on file documented as of this encounter Visit Diagnoses Not on filedocumented in this encounter Care Teams Customer Account Executive Relationship Specialty Start Date End Date Kraig Ching MD [address] [place] [address] PCP - General 07/10/16 Gautam Cope MD [address] [place] [address] Medical Oncologist/Surface Mount Technology Operator Medical Oncology 08/18/18 Tramaine Roe MD [address] [place] [address] Referring Physician Urology 08/18/18 Sukhwinder Uribe MD [address] [place] [address] Consulting Physician Urology 08/18/18 Shay Guillermo MD [address] [place] [address] Referring Physician Urology 08/18/18 Marsha Landis, RN Registered Nurse 11/17/18 Ilene Fragoso RN [address] [place] [address] Asbestos Worker 12/23/18 11/01/19 Clarissa Luna RN [address] [place] [address] Asbestos Worker 04/04/24 04/26/24 documented as of this encounter
--- OUTSIDE RECORDS SUMMARY | 2024-09-09 19:08 | XMS_ITS | Encounter Summary ---
Author Organization [facility] Address [address] [place] [address] Phone Care Team Providers Care Director Marketing Analytics Name Role Phone Kraig Ching MD Primary Care Provider Gautam Cope MD Unavailable Tramaine Roe MD Unavailable [phone] Sukhwinder Uribe MD Unavailable [phone] Shay Guillermo MD Unavailable [phone] Marsha Landis RN Unavailable Unavailab Clarissa Harry RN Unavailable Encounter Details Date Type Department Care Team (Late st Contact Info) Description 12/09/2021 Telephone [facility] Oncology [address] [facility] Advanced Medicine 7th [place] [address] [place] [address] Muna Saleem RN Social History [...] on file 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 Gender Identity Not on file Sexual Orientation Not on file documented as of this encounter Functional Status documented as of this encounter Plan of Treatment Not on file documented as of this encounter Visit Diagnoses Not on filedocumented in this encounter Care Teams Director Marketing Analytics Relationship Specialty Start Date End Date Kraig Ching MD [address] [place] [address] PCP - General 07/10/16 Gautam Cope MD [address] [place] [address] Medical Oncologist/Meat Stuffer Medical Oncology 08/18/18 Tramaine Reo MD [address] [place] [address] Referring Physician Urology 08/18/18 Sukhwinder Uribe MD [address] [place] [address] Consulting Physician Urology 08/18/18 Shay Guillermo MD [address] [place] [address] Referring Physician Urology 08/18/18 Marsha Landis, RN Registered Nurse 11/17/18 Clarissa Luna RN [address] [place] [address] [address] [place] [address] Resin Remover 04/04/24 04/26/24 documented as of this encounter
--- OUTSIDE RECORDS SUMMARY | 2024-09-09 19:08 | XMS_ITS | Encounter Summary ---
Author Organization [facility] Healthcare Address [address] [place] [address] Care Team Providers Care Wireworker Supervisor Name Role Phone Kraig Ching MD Primary Care Provider [phone] Gautam Cope MD Unavailable Tramaine Roe MD Unavailable [phone] Sukhwinder Uribe MD Unavailable [phone] Shay Guillermo MD Unavailable [phone] Marsha Landis RN Unavailable Unavailab le Encounter Details Date Type Department Care Team (Late st Contact Info) Description 07/21/2024 Results Follow-Up [facility] at [address] [address] Fadi Corrales NP [address] [place] [address] [address] [place] [address] Urine culture Urine, clean voided Social History Tobacco Use Types Packs/Day Years Used Date Smoking Tobacco: Former Cigarettes 0.3 52 1 958 - 2010 Passive Smoke Exposure: Past Smokeless Tobacco: Never Comments:Smoking History Pac ks/day: 10 Cigarettes Alcohol Use Standard Drinks/Week Comments Yes 0 (1 standard drink = 0.6 oz pur e alcohol) Occasional glass of wine. [facility] Utilities Answer Date Recorded In the past 12 months has [employer] electric, gas, oil, or water company threatened [...] often do you attend chur ch or christian services? Never 04/04/2024 Do you belong to [...] time in the past 12 m [facility], were you homeless or living in a mcc (including now)? No 04/04/2024 Personal Safety Answer Date Recorded Have you ever been in or are you currently in a harmful physical or emotional relationship or is someone making you feel afraid or unsafe? Denies 06/09/2023 Sex and Gender Information Value Date Recorded Sex Assigned at Not on file Legal Sex Male 4:46 PM TUBE CARRIER Gender Identity Not on file Sexual Orientation Not on file documented as of this encounter Miscellaneous Notes * Result Encounter Note - Betsy Rodríguez MA - 07/21/2024 5:13 PM CDT Viewed via [employer] documented in this encounter Plan of Treatment Not on file documented as of this encounter Goals Goal Patient Goal Type Associated Problems Recent Progress Patient-Stated? Author ZAK General Goal - Patient establishes care with [facility] Care Management On track(2023 1:22 PM TUBE CARRIER) No Clarissa Luna RN Note: Problem: Lack of [facility] [...] providers ACO Care Management Improving( 1:22 PM TUBE CARRIER) No Clarissa Luna RN Note: Problem: Potential [...] on filedocumented in this encounter Care Teams Wireworker Supervisor Relationship Specialty Start Date End Date Kraig Ching MD [address] [facility] [address] [place] [address] PCP - General 07/10/16 Gautam Cope MD [address] [facility] [address] [place] [address] Medical Oncologist/Patient Admitting Clerk Medical Oncology 08/18/18 Tramaine Roe MD [address] [facility] [address] [place] [address] Referring Physician Urology 08/18/18 Sukhwinder Uribe MD [address] [facility] [address] [place] [address] Consulting Physician Urology 08/18/18 Shay Guillermo MD [address] [facility] [address] [place] [address] Referring Physician Urology 08/18/18 Marsha Landis, RN Registered Nurse 11/17/18 documented as of this encounter
--- NOTE | 2024-09-09 19:17 | ED.URI ---
HPI - URI/Sore Throat General Chief Complaint: Upper Respiratory Infection Stated Complaint: sick case, fever, chills, weak Time Seen by Provider: 09/09/24 19:02 History of Present Illness HPI Narrative: 83-year-old male with a past medical history including COPD, hypertension, diabetes, paroxysmal AFib. Patient presents to the emergency department today with complaint of not feeling well, generalized malaise, fever, shortness of breath. Patient was just discharged from the hospital several days ago after a prolonged hospital stay for aspiration pneumonia and COPD. Patient was discharged with a continued course of Augmentin but he is not sure if he was taking this medication is skilled rehab facility. Patient is febrile here, resting in his bed complaining of fatigue and malaise. He has low blood pressures with a systolic a 70 several times. He does appear very dry and states that he is thirsty. Denies any chest pain, abdominal pain, back pain, nausea, vomiting, dysuria. Related Data Home Medications ?Medication ?Instructions ?Recorded ?Confirmed ?Last Taken ?Type insulin glargine 100 unit/mL (3 20 unit subcut QHS 06/19/22 09/10/24 08/27/24 History mL) subcutaneous pen (Lantus Solostar U-100 Insulin) pantoprazole 40 mg tablet,delayed 40 mg PO DAILY 06/19/22 09/10/24 08/28/24 History release abiraterone 250 mg tablet 1,000 mg PO HS 03/26/24 09/10/24 07/20/24 History carvedilol 12.5 mg tablet 12.5 mg PO Q12H 03/26/24 09/10/24 08/28/24 History chlorthalidone 25 mg tablet 25 mg PO DAILY 03/26/24 09/10/24 Unknown History dorzolamide 22.3 mg-timolol 6.8 1 drp EACH EYE Q12H 03/26/24 09/10/24 08/28/24 History mg/mL eye drops insulin aspart U-100 100 unit/mL 1 sliding scale dose subcut TID 03/26/24 09/10/24 08/28/24 History (3 mL) subcutaneous pen (Novolog FlexPen U-100 Insulin aspart) lisinopril 20 mg tablet 40 mg PO DAILY 03/26/24 09/10/24 07/20/24 History pravastatin 20 mg tablet 20 mg PO HS 03/26/24 09/10/24 08/26/24 History sitagliptin phosphate 25 mg tablet 25 mg PO DAILY 03/26/24 09/10/24 08/26/24 History (Kendra) mirtazapine 7.5 mg tablet 7.5 mg PO DAILY 09/10/24 09/10/24 Unknown History Allergies Allergy/AdvReac Type Severity Reaction Status Date / Time No Known Drug Allergies Allergy Unknown Other Verified 08/29/24 17:26 Review of Systems Review of Systems: As reviewed above in HPI [facility] Past Medical History Medical History Esophageal ulcer Chronic kidney disease, stage 3 Paroxysmal atrial fibrillation Gastroesophageal reflux disease 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 He smokes 1-2 cigarettes per day most days. He denies marijuana use or other drug use. He drinks 1-2 alcoholic drinks per week. He has cats. Code status -full Surrogate decision maker - Smoking packs per day: 1 Smoking cigarettes per day: 20.0 Years smoked: 30 Smoking pack-years: 30.00 Smoking status: Former smoker Tobacco type: cigarettes Second hand tobacco smoke exposure: Yes Smoking end date: 08/11/03 Additional smoking assessment comments: marijuana daily and regular cigarettes smokes intermittently Alcohol intake: current Drinks per week: 2 Substance use: current Substance use type: marijuana Other substance usage details: smoke once a day Last use: 06/10/2024 Do You Feel Safe in your Home?: Yes Lack of Transportation: No Lack of Food: Never True Current Housing: I Have Housing Concerned About Future Housing: No Difficulty Paying Gas/Electric Bills: No Difficulty Paying for Meds: No Currently Unemployed: No Education: Master's Degree or Higher Difficulty w/ Childcare or Family Care: No Spiritual care concerns: No Exam Narrative: GENERAL: Ill-appearing, obese, weak but awake and answering questions HEAD: [Normocephalic, atraumatic.] EYES: [PERRLA and EOMI.] ENT: Nares clear, no rhinorrhea or epistaxis. Mucous membranes dry. NECK: Supple. CHEST: [Clear to auscultation. No respiratory distress.] HEART: [Regular rate and rhythm]. No murmur heard. [Normal peripheral pulses.] ABDOMEN: Protuberant but nondistended, soft, [nontender], [No rigidity or guarding] EXTREMITIES: Normal range of motion. [No edema.] SKIN: Very warm extremities, no rash. Dry. NEURO: [No focal deficits]. Alert and oriented [x3.] PSYCH: [Normal mood and affect.] Course Vital Signs Vital signs: Vital Signs Temperature 37.6 C H 09/09/24 18:35 Pulse Rate 96 09/09/24 18:35 Respiratory Rate 20 09/09/24 18:35 Blood Pressure 106/52 L 09/09/24 18:35 Pulse Oximetry 95 09/09/24 18:35 Oxygen Delivery Room Air 09/09/24 18:35 Temperature 36.9 C 09/10/24 04:00 Pulse Rate 66 09/10/24 06:00 Respiratory Rate 16 09/10/24 06:00 Blood Pressure 105/48 L 09/10/24 06:00 Pulse Oximetry 96 09/10/24 06:00 Oxygen Delivery Room Air 09/10/24 04:39 Procedures Central Line Placement Right Femoral: Central Line Date: 09/09/24 Central Line Time: 22:30 Discussed w/ the patient/family/POA,the placement of a central venous catheter, including its clinical necessity/indication & associated potential risks, benifits and alternatives.: Yes The patient/family/POA understand(s) and acknowledge(s) the need to proceed with central venous catheter insertion as an important element of the patient's clinical management.: Yes Time Out Performed: Yes Patient Placed on Monitor/Pulse Ox: Yes Max. Sterile Barrier Technique: Caps, large sterile sheet and hand hygiene Central Line Prep: 2% chlorhexidine scrub and sterile drapes applied Technique: US-Guided Local Anesthetic: lidocaine 1% Amount of anesthesia used (mL): 5 Ultrasound Used for Placement: Yes Central Line Lumen Inserted: triple Post Procedure: sutured in place, good blood return, all ports aspirated, flushed, capped and sterile dressing applied Patient Tolerated Procedure: well and no complications Complications: none MDM - URI/Sore Throat MDM Narrative Medical decision making narrative: 83-year-old male with history of hypertension, diabetes, COPD, CKD, paroxysmal AFib. Patient presents to the emergency department for generalized malaise, fatigue, shortness a breath, fever. Patient was just discharged from the hospital several days ago after a prolonged hospital stay for aspiration pneumonia and COPD. He was discharged home on Augmentin but him and his are not sure if he was taking this over last 3 days. He is febrile here very warm to the touch and ill-appearing. His vital signs are concerning with a systolic pressure of 70 multiple times in his arm, combined with his generalized malaise, fever, dehydration concern raised for sepsis. Septic bundle initiated with concern for potential recurrence of his pneumonia versus urinary tract infection versus bloodstream infection. Blood cultures obtained, lactic acid, CRP, CBC, CMP, PT, PTT, chest x-ray, urinalysis, EKG. Patient started on vancomycin cefepime for hospital-acquired coverage and high drip score. Patient given a approximately 30 cc/kg bolus given his weight and 2.5 L of LR started. Patient had some transient responses blood pressure with initial fluid resuscitation but still had rebound hypotension. Discussed with the family member central line placement and she was agreeable. Centralized placed into the right femoral vessel and he was given additional fluid resuscitation after discussing with the hospitalist. Started on maintenance infusion. Norepinephrine started through central line and his maps have improved dramatically. Patient's fever did break after Tylenol. Patient's hemoglobin is 9.1 at his baseline. White cell count of 11.6, platelets of 601 likely reactive to infectious process. Chemistry panel shows elevated BUN and creatinine, around his baseline. CT scans of the chest abdomen pelvis without contrast ordered for further delineation. Lactic acid is negative. Urinalysis does not show any signs of infection. CT scan shows right pleural effusion, no definitive acute intra thoracic process aside from a dilated esophagus and reflux esophagitis which likely led to a potential aspiration events. Abdomen pelvis without any appendicitis, diverticulitis or intestinal obstruction. I spoke to the ICU doctor Dr. Grossman who accepted the patient to the ICU. Dr. Hallks what the hospitalist was spoken to and agreeable for ICU admission at this time. Family members made aware of the plan of care and patient admitted successfully for further evaluation and treatment of his persistent hypotension and suspected sepsis. Medical Records Attestation: I reviewed the patient's medical records. Lab Data Attestation: I reviewed the patient's lab results. 09/10/24 03:59 09/10/24 03:59 Labs: Lab Results 09/09/24 09/09/24 09/09/24 Range/Units 19:30 20:25 21:36 WBC 11.6 H (4.5-10.0) K/mm3 RBC 3.51 L (4.6-6.20) M/mm3 Hgb 9.1 L (14.0-18.0) g/dL Hct 29.6 L (42.0-52.0) % MCV 84.3 (80-100) fl MCH 25.9 L (26-34) pg MCHC 30.7 L (32-36) g/dl RDW 15.4 H (11.5-14.5) % Plt Count 601 H (150-375) k/mm3 MPV 9.0 (7.4-10.4) fl Immature Gran % (Auto) 1.7 H (0-0.5) % Neut % (Auto) 72.9 (45.5-73.1) % Lymph % (Auto) 12.8 L (18.3-44.2) % Green % (Auto) 11.1 H (2.6-8.5) % Eos % (Auto) 1.3 (0-4.4) % Baso % (Auto) 0.2 (0.2-1.2) % Lymph # (Auto) 1.49 (0.9-3.2) K/mm3 Green # (Auto) 1.3 H (0.1-0.6) K/mm3 Eos # (Auto) 0.2 (0-0.3) K/mm3 Baso # (Auto) 0.0 (0.0-0.1) K/mm3 Abs Immat Gran (auto) 0.20 H (0.00-0.031) K/mm3 Absolute Neuts (auto) 8.5 H (1.3-6.7) K/mm3 Absolute Nucleated RBC 0.000 (0.0-0.012) K/mm3 Nucleated RBC % 0.0 (0.0-0.2) % PT 14.9 H (11.1-14.7) Seconds INR 1.2 APTT 35.1 (22.3-36.8) Seconds Sodium 133 L (137-145) mmol/L Potassium 3.6 (3.4-5.0) mmol/L Chloride 104 (98-107) mmol/L Carbon Dioxide 23 (22-30) mmol/L Anion Gap 6 (4-12) mmol/L BUN 35 H D (9-20) mg/dL Creatinine 2.37 H (0.7-1.3) mg/dL Estim Creat Clear Calc 22 ml/min Estimated GFR 26 L (59 - ) Glucose 204 H (65-110) mg/dL Lactic Acid 1.2 (0.7-2.0) mmol/L Calcium 7.7 L (8.4-10.2) mg/dL Magnesium 1.0 L (1.6-2.3) mg/dL Total Bilirubin 0.4 (0.2-1.3) mg/dL AST 26 (17-59) U/L ALT 15 (6-50) U/L Alkaline Phosphatase 96 (38-126) U/L C-Reactive Protein 8.1 H (<1.0) mg/dL Total Protein 5.0 L (6.3-8.2) g/dL Albumin 2.7 L (3.5-5.1) g/dL Urine Color Yellow (Yellow) Urine Appearance Clear (Clear) Urine pH 5.0 (5.0-9.0) Ur Specific [place] 1.010 (1.001-1.035) Urine Protein Trace (Negative) mg/dL Urine Glucose (UA) Negative (Negative) mg/dL Urine Ketones Negative (Negative) mg/dL Ur Blood (Man) Negative (Negative) Urine Nitrate Negative (Negative) Urine Bilirubin Negative (Negative) Urine Urobilinogen 0.2 (<2.0) mg/dL Add Ur Microanalysis Reviewed Leukocyte Esterase Rfl Negative (Negative) NADYA/UL Urine RBC 0-2 (0-2) /hpf Urine WBC 0-5 (0-3) /hpf Ur Squamous Epith Cells None seen (Few) /hpf Urine Bacteria None seen /hpf Urine Casts 3-5 Nasal MRSA (PCR) Not detected (NOT DETECTE) Influenza A (RT-PCR) Negative (Negative) Influenza B (RT-PCR) Negative (Negative) RSV (RT-PCR) Negative (Negative) SARS-CoV-2 RNA (RT-PCR) Negative (Negative) Imaging Data Attestation: I personally reviewed and interpreted this imaging study as follows: My impression: Impressions Chest X-Ray 09/09/24 20:06 IMPRESSION: Cardiomegaly. Blunting of the posterior costophrenic angles suggestive of effusion with adjacent atelectasis. Chest/Abdomen/Pelvis CT 09/09/24 21:59 IMPRESSION: CHEST: 1. Right pleural effusion. 2. No other definite acute cardiopulmonary pathology seen. 3. Slightly dilated esophagus which may indicate reflux esophagitis. ABDOMEN/PELVIS: 1. No evidence of appendicitis, diverticulitis or intestinal obstruction. 2. Bilateral renal cysts with small density in the right kidney lower pole. Follow-up advised. 3. Bilateral fat containing inguinal hernias. Small fat-containing umbilical hernia. Critical Care Time Critical Care Time Critical Care Time: Yes Total Critical Care Time: 75 Discharge Plan Discharge Clinical Impression: Shock, SIRS (systemic inflammatory response syndrome) Aspiration pneumonia Qualifiers: Aspiration pneumonia type: unspecified Laterality: unspecified laterality Lung location: unspecified part of lung Qualified Code(s): J69.0 - Pneumonitis due to inhalation of food and vomit Patient Disposition: Still a Patient Condition: Serious
[2024-09-09 19:39] LABS: Basophils Percent Auto 0.2 % (0.2-1.2); Eosinophils Absolute Auto 0.2 K/mm3 (0-0.3); Eosinophils Percent Auto 1.3 % (0-4.4); Hematocrit 29.6 % (42.0-52.0); Hemoglobin 9.1 g/dL (14.0-18.0); Immature Granulocyte Percent A 1.7 % (0-0.5); Lymphocytes Absolute Auto 1.49 K/mm3 (0.9-3.2); Lymphocytes Percent Auto 12.8 % (18.3-44.2); Mean Corpuscular HGB Conc 30.7 g/dl (32-36); Mean Corpuscular Hemoglobin 25.9 pg (26-34); Mean Corpuscular Volume 84.3 fl (80-100); Monocytes Absolute Auto 1.3 K/mm3 (0.1-0.6); Monocytes Percent Auto 11.1 % (2.6-8.5); Neutrophils Absolute Auto 8.5 K/mm3 (1.3-6.7); Neutrophils Percent Auto 72.9 % (45.5-73.1); Platelet Count Result 601 k/mm3 (150-375); Red Blood Count 3.51 M/mm3 (4.6-6.20); Red Cell Distribution Width 15.4 % (11.5-14.5); White Blood Count 11.6 K/mm3 (4.5-10.0)
[2024-09-09 19:50] LABS: INR 1.2; Lactic Acid Reflex 1.2 mmol/L (0.7-2.0); Prothrombin Time 14.9 Seconds (11.1-14.7)
[2024-09-09 19:51] LABS: Partial Thromboplastin Time 35.1 Seconds (22.3-36.8)
[2024-09-09 19:52] LABS: Alanine Aminotransferase 15 U/L (6-50); Albumin Level 2.7 g/dL (3.5-5.1); Alkaline Phosphatase 96 U/L (38-126); Anion Gap 6 mmol/L (4-12); Aspartate Amino Transferase 26 U/L (17-59); Bilirubin,Total 0.4 mg/dL (0.2-1.3); Blood Urea Nitrogen 35 mg/dL (9-20); CRP. 8.1 mg/dL (<1.0); Calcium 7.7 mg/dL (8.4-10.2); Carbon Dioxide 23 mmol/L (22-30); Chloride 104 mmol/L (98-107); Estimated CRCL calculation 22 ml/min; Estimated Glomerular Filt Rate 26; Glucose 204 mg/dL (65-110); Potassium 3.6 mmol/L (3.4-5.0); Sodium 133 mmol/L (137-145)
[2024-09-09 20:15] LABS: Influenza A QL RT-PCR Negative (Negative); Influenza B QL RT-PCR Negative (Negative); RSV RNA, RT-PCR. Negative (Negative); SARS-CoV-2 RNA PCR Negative (Negative)
[2024-09-09] MEDS: LACTATED RINGERS 1,000 ML 999 ML IV CONT ×2 (21:26)
[2024-09-09] MEDS: LACTATED RINGERS 500 ML 999 ML IV CONT (21:26)
[2024-09-09] MEDS: MAGNESIUM OXIDE 400 MG TABLET PO (21:27)
[2024-09-09] MEDS: ACETAMINOPHEN 500 MG TABLET 1000 MG PO (21:27)
[2024-09-09 21:40] LABS: MRSA (PCR) NOT DETECTED (NOT DETECTE)
[2024-09-09 22:03] LABS: Add Urine Microscopic? YES; Appearance Urine Clear (Clear); Bacteria Urine None Seen /hpf; Bilirubin Urine Negative (Negative); Blood Urine Negative (Negative); Color Urine Yellow (Yellow); Glucose Urine UA Negative (Negative); Ketones Urine Negative (Negative); Leukocyte Esterase Ur Negative LEU/UL (Negative); Need Manual Microscopic Reviewed; Nitrate Urine Negative (Negative); Protein Urine Trace mg/dL (Negative); RBC Urine 0-2 /hpf (0-2); Squamous Epithelial Cell Urine None Seen /hpf (Few); Urobilinogen Urine 0.2 mg/dL (<2.0); WBC Urine 0-5 /hpf (0-3)
[2024-09-09] MEDS: CEFEPIME 2 GM/NS 50 ML 2 GM/50 ML BAG IVPB (22:46)
[2024-09-09] MEDS: SODIUM CHLORIDE 0.9% IV 1,000 ML 999 ML IV CONT (22:47)
[2024-09-09] MEDS: VANCOMYCIN 1,250 MG/NS 250 ML 1,250 MG/250 ML BAG 166.67 MG IVPB (23:17)
[2024-09-09] MEDS: MAGNESIUM SULF 2 GM/WATER 50ML 2 GM/50 ML BAG IVPB (23:46)
[2024-09-10] VITALS (26 sets, daily range): BP systolic 87–148; BP diastolic 40–79; PULSE 64–90; RESP 12–23; TEMP 36.6–39.4; O2SAT 92–100; BMI 27.3
[2024-09-10] MEDS: NOREPINEPHRINE 8 MG/D5W 250 ML 8 MG/250 ML BAG 9.38 MG IV CONT (01:42)
[2024-09-10] MEDS: SODIUM CHLORIDE 0.9% IV 1,000 ML 130 ML IV CONT (01:42)
--- NOTE | 2024-09-10 02:04 | ADMGEN ---
This patient, David Wei, was admitted to Intensive Care Unit-3. Patient/family oriented to hospital policies and general routines including ID bracelet, bed and alarms, visiting hours, pain management, procedures, bathroom and other care routines, personal items, smoking policy, room service/diet, and visiting hours. Information on how to activate the Rapid Response Team has been discussed. Patient/Family are encouraged to report perceived risks to care and to ask questions if they do not understand what they are told or what they should do.
[2024-09-10] MEDS: VANCOMYCIN 1,000 MG/NS 250 ML 1,000 MG/250 ML BAG 250 MG IVPB (02:32)
[2024-09-10 04:09] LABS: Basophils Percent Auto 0.2 % (0.2-1.2); Eosinophils Absolute Auto 0.2 K/mm3 (0-0.3); Eosinophils Percent Auto 1.7 % (0-4.4); Hemoglobin 8.3 g/dL (14.0-18.0); Immature Granulocyte Percent A 2.2 % (0-0.5); Lymphocytes Absolute Auto 1.57 K/mm3 (0.9-3.2); Lymphocytes Percent Auto 17.5 % (18.3-44.2); Mean Corpuscular HGB Conc 30.7 g/dl (32-36); Mean Corpuscular Hemoglobin 26.2 pg (26-34); Mean Corpuscular Volume 85.2 fl (80-100); Mean Platelet Volume 8.9 fl (7.4-10.4); Monocytes Absolute Auto 1.5 K/mm3 (0.1-0.6); Monocytes Percent Auto 16.9 % (2.6-8.5); Neutrophils Absolute Auto 5.5 K/mm3 (1.3-6.7); Neutrophils Percent Auto 61.5 % (45.5-73.1); Platelet Count Result 520 k/mm3 (150-375); Red Blood Count 3.17 M/mm3 (4.6-6.20); Red Cell Distribution Width 15.4 % (11.5-14.5)
[2024-09-10 04:21] LABS: Alanine Aminotransferase 11 U/L (6-50); Albumin Level 2.4 g/dL (3.5-5.1); Alkaline Phosphatase 87 U/L (38-126); Anion Gap 8 mmol/L (4-12); Aspartate Amino Transferase 18 U/L (17-59); Bilirubin,Total 0.3 mg/dL (0.2-1.3); Blood Urea Nitrogen 29 mg/dL (9-20); Calcium 7.3 mg/dL (8.4-10.2); Carbon Dioxide 21 mmol/L (22-30); Chloride 107 mmol/L (98-107); Estimated CRCL calculation 26 ml/min; Estimated Glomerular Filt Rate 31; Glucose 141 mg/dL (65-110); Magnesium 1.4 mg/dL (1.6-2.3); Phosphorus 4.7 mg/dL (2.5-4.5); Potassium 3.3 mmol/L (3.4-5.0); Sodium 136 mmol/L (137-145)
--- NOTE | 2024-09-10 05:53 | PM.IMHP ---
H&P: HPI History of Present Illness Date/Time: 09/10/24 05:53 Chief Complaint: Fatigue Narrative: Mr. Wei is 83-year-old male with a history of hypertension, diabetes insulin-dependent, COPD, CKD, AFib, who presents to [place] [facility] on 09/09/2024 with complaint of significant fatigue and weakness. Patient was just discharged from [facility] on 09/05 with the initial complaint of generalized weakness and vomiting. He was treated for possible aspiration pneumonia with Zosyn which was transition to Augmentin on discharge. Also treated for COPD with a short course of steroids discontinued due to hyperglycemia. He had an GABRIELA on CKD. He was discharged to a [facility] facility and returns on 09/09/2024 with weakness, fatigue, fever, shortness of breath. Patient is unsure if he was receiving his Augmentin at the rehab facility. Patient states he is very thirsty and weak. Initial ER evaluation reveals a temperature of 101.2? F. initial blood pressure 106/52 however dropping shortly after. Low as 79/47 which improved after the therapy mention below. Saturating 98% on room air. Heart rate in the 80s. White blood cell count initially 11.6 coming down to 9.0. Hemoglobin 9.1. Platelet count 601. INR 1.2. Sodium 133 coming up to 136. Potassium 3.6 coming down to 3.3. BUN 35, serum creatinine 2.37 improved to 2.04. Magnesium 1.4. Albumin low at 2.4 calcium low at 7.3 with corrected calcium 8.2. Urinalysis unremarkable. Quad viral screen negative. A CT chest abdomen and pelvis without contrast demonstrating right pleural effusion, slightly dilated esophagus, bilateral renal cyst,. Bilateral fat containing inguinal hernias and small fat containing umbilical hernia. A 30 cc per kg volume bolus was administered. His mean arterial pressure continue to stay below 65. He was given another L bolus with mild improvement with MAP sitting around 65-70. He was also given cefepime vancomycin, magnesium oxide, magnesium sulfate, cefepime, Tylenol 1000 mg p.o. x1. Blood cultures obtained. Sales Account Representative notified and patient transferred ICU after a central line was placed. However, Levophed was not started. 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 He smokes 1-2 cigarettes per day most days. He denies marijuana use or other drug use. He drinks 1-2 alcoholic drinks per week. He has cats. Code status -full Surrogate decision maker - Smoking packs per day: 1 Smoking cigarettes per day: 20.0 Years smoked: 30 Smoking pack-years: 30.00 Smoking status: Former smoker Tobacco type: cigarettes Second hand tobacco smoke exposure: Yes Smoking end date: 08/11/03 Additional smoking assessment comments: marijuana daily and regular cigarettes smokes intermittently Alcohol intake: current Drinks per week: 2 Substance use: current Substance use type: marijuana Other substance usage details: smoke once a day Last use: 06/10/2024 Do You Feel Safe in your Home?: Yes Lack of Transportation: No Lack of Food: Never True Current Housing: I Have Housing Concerned About Future Housing: No Difficulty Paying Gas/Electric Bills: No Difficulty Paying for Meds: No Currently Unemployed: No Education: Master's Degree or Higher Difficulty w/ Childcare or Family Care: No Spiritual care concerns: No Meds Home Medications and Allergies Home Medications ?Medication ?Instructions ?Recorded ?Confirmed ?Type insulin glargine 100 unit/mL (3 20 unit subcut QHS 06/19/22 09/10/24 History mL) subcutaneous pen (Lantus Solostar U-100 Insulin) pantoprazole 40 mg tablet,delayed 40 mg PO DAILY 06/19/22 09/10/24 History release albuterol sulfate 90 mcg/actuation 2 puff inhalation QID PRN 06/21/22 09/10/24 Rx aerosol inhaler shortness of breath or wheezing #8.5 grams abiraterone 250 mg tablet 1,000 mg PO HS 03/26/24 09/10/24 History carvedilol 12.5 mg tablet 12.5 mg PO Q12H 03/26/24 09/10/24 History chlorthalidone 25 mg tablet 25 mg PO DAILY 03/26/24 09/10/24 History dorzolamide 22.3 mg-timolol 6.8 1 drp EACH EYE Q12H 03/26/24 09/10/24 History mg/mL eye drops insulin aspart U-100 100 unit/mL 1 sliding scale dose subcut TID 03/26/24 09/10/24 History (3 mL) subcutaneous pen (Novolog FlexPen U-100 Insulin aspart) lisinopril 20 mg tablet 40 mg PO DAILY 03/26/24 09/10/24 History pravastatin 20 mg tablet 20 mg PO HS 03/26/24 09/10/24 History sitagliptin phosphate 25 mg tablet 25 mg PO DAILY 03/26/24 09/10/24 History (Januvia) ondansetron 4 mg disintegrating 4 mg PO Q8H #14 tabs 08/28/24 09/10/24 Rx tablet tiotropium bromide 1.25 2 puff inhalation DAILY 30 days #4 09/05/24 09/10/24 Rx mcg/actuation mist for inhalation grams (Spiriva Respimat) mirtazapine 7.5 mg tablet 7.5 mg PO DAILY 09/10/24 09/10/24 History Allergies Allergy/AdvReac Type Severity Reaction Status Date / Time No Known Drug Allergies Allergy Unknown Other Verified 08/29/24 17:26 Vital Signs Vital Signs - 24 hr 09/09/24 18:35 09/09/24 19:08 09/09/24 19:10 Temperature 99.7 F H Pulse Rate 96 Respiratory Rate 20 Blood Pressure 106/52 L 79/47 L 101/46 L Pulse Oximetry 95 Oxygen Delivery Room Air 09/09/24 19:27 09/09/24 19:29 09/09/24 21:30 Temperature 101.2 F H Pulse Rate 92 84 Respiratory Rate 26 H 21 H Blood Pressure 101/46 L Pulse Oximetry 97 97 96 Oxygen Delivery Room Air 09/09/24 21:59 09/10/24 00:03 09/10/24 01:42 Temperature Pulse Rate 90 69 64 Respiratory Rate 17 20 Blood Pressure 120/51 L 91/52 L 91/53 L Pulse Oximetry 96 98 Oxygen Delivery 09/10/24 02:00 09/10/24 02:00 09/10/24 02:00 Temperature 97.9 F Pulse Rate 80 81 Respiratory Rate 20 Blood Pressure 136/77 136/77 Pulse Oximetry 97 98 Oxygen Delivery Room Air 09/10/24 02:04 09/10/24 02:05 09/10/24 02:15 Temperature Pulse Rate 81 81 81 Respiratory Rate 22 H 22 H Blood Pressure 91/53 L 91/53 L 100/59 L Pulse Oximetry 98 98 Oxygen Delivery 09/10/24 03:00 09/10/24 03:00 09/10/24 04:00 Temperature 98.4 F Pulse Rate 87 75 82 Respiratory Rate 19 Blood Pressure 99/76 L 99/76 L 117/62 Pulse Oximetry 98 Oxygen Delivery 09/10/24 04:00 09/10/24 04:00 09/10/24 04:39 Temperature Pulse Rate 80 79 Respiratory Rate Blood Pressure 117/62 Pulse Oximetry 98 Oxygen Delivery Room Air Exam Const: Other: Lethargic, A&O x3, warm to touch HENMT: Mouth: Yes dry mucous membranes Eyes: Pupils: Equal, round and reactive pupils present Neck: Neck: supple Resp: Effort & Inspection: normal respiratory effort Auscultation: clear to auscultation bilaterally Cardio: Rate: regular rate Rhythm: regular rhythm Heart sounds: Murmur heart sound present (Systolic murmur) GI: Inspection: non-distended GI Palp: Yes Soft to palpation and No Tenderness to palpation present (GI) : General: Yes bladder normal to palpation Neuro: Motor exam (neuro): 5/5 motor strength present throughout Sensory Exam: normal sensation Extrem: General: no edema H&P: Results Labs Labs: Short CBC 09/09/24 09/10/24 Range/Units 19:30 03:59 WBC 11.6 H 9.0 (4.5-10.0) K/mm3 Hgb 9.1 L 8.3 L (14.0-18.0) g/dL Hct 29.6 L 27.0 L (42.0-52.0) % Plt Count 601 H 520 H (150-375) k/mm3 BMP 09/09/24 09/10/24 09/10/24 19:30 03:59 03:59 Sodium 133 L 136 L Potassium 3.6 3.3 L Chloride 104 107 Carbon Dioxide 23 21 L BUN 35 H D 29 H Creatinine 2.37 H 2.06 H 2.04 H Glucose 204 H 141 H Calcium 7.7 L 7.3 L Liver Function 09/09/24 09/10/24 Range/Units 19:30 03:59 Total Bilirubin 0.4 0.3 (0.2-1.3) mg/dL AST 26 18 (17-59) U/L ALT 15 11 (6-50) U/L Alkaline Phosphatase 96 87 (38-126) U/L Albumin 2.7 L 2.4 L (3.5-5.1) g/dL Urine 09/09/24 Range/Units 21:36 Urine Color Yellow (Yellow) Urine Appearance Clear (Clear) Urine pH 5.0 (5.0-9.0) Ur Specific [place] 1.010 (1.001-1.035) Urine Protein Trace (Negative) mg/dL Urine Glucose (UA) Negative (Negative) mg/dL Assessment and Plan Assessment and plan (1) Aspiration pneumonia: Qualifiers: Aspiration pneumonia type: unspecified Laterality: unspecified laterality Lung location: unspecified part of lung Qualified Code(s): J69.0 - Pneumonitis due to inhalation of food and vomit Code(s): J69.0 - Pneumonitis due to inhalation of food and vomit Status: Acute (2) Shortness of breath: Code(s): R06.02 - Shortness of breath Status: Acute (3) Sepsis: Code(s): A41.9 - Sepsis, unspecified organism Status: Acute (4) Hypomagnesemia: Code(s): E83.42 - Hypomagnesemia Status: Acute Plan Mr. Wei is 83-year-old male with a history of hypertension, diabetes insulin-dependent, COPD, CKD, AFib, who presents to [facility] on 09/09/2024 with complaint of significant fatigue and weakness. Patient was just discharged from [facility] on 09/05 with the initial complaint of generalized weakness and vomiting. He was treated for possible aspiration pneumonia with Zosyn which was transition to Augmentin on discharge. Also treated for COPD with a short course of steroids discontinued due to hyperglycemia. He had an GABRIELA on CKD. He was discharged to a [facility] facility and returns on 09/09/2024 with weakness, fatigue, fever, shortness of breath. Patient is unsure if he was receiving his Augmentin at the rehab facility. Patient states he is very thirsty and weak. Initial ER evaluation reveals a temperature of 101.2? F. initial blood pressure 106/52 however dropping shortly after. Low as 79/47 which improved after the therapy mention below. Saturating 98% on room air. Heart rate in the 80s. White blood cell count initially 11.6 coming down to 9.0. Hemoglobin 9.1. Platelet count 601. INR 1.2. Sodium 133 coming up to 136. Potassium 3.6 coming down to 3.3. BUN 35, serum creatinine 2.37 improved to 2.04. Magnesium 1.4. Albumin low at 2.4 calcium low at 7.3 with corrected calcium 8.2. Urinalysis unremarkable. Quad viral screen negative. A CT chest abdomen and pelvis without contrast demonstrating right pleural effusion, slightly dilated esophagus, bilateral renal cyst,. Bilateral fat containing inguinal hernias and small fat containing umbilical hernia. A 30 cc per kg volume bolus was administered. His mean arterial pressure continue to stay below 65. He was given another L bolus with mild improvement with MAP sitting around 65-70. He was also given cefepime vancomycin, magnesium oxide, magnesium sulfate, cefepime, Tylenol 1000 mg p.o. x1. Blood cultures obtained. Sales Account Representative notified and patient transferred ICU after a central line was placed. However, Levophed was not started. ----- Blood cultures are currently pending. He is being covered empirically with cefepime and vancomycin. His blood pressure has improved with volume resuscitation. Central line is in place but Levophed did not need to be started. His leukocytosis has resolved. His serum creatinine has improved from 2.37-2.04. His lactic acid on admission was 1.2. CT of chest not greatly impressive, pleural effusion is not large and there are not significant consolidations. Bacteremia is a possibility. Surface echocardiogram has been ordered. Consider BERNA. Replace magnesium and potassium. Continue normal saline at 130 cc/hour. SCDs. Full code. Hospitalist [facility] Advance Care Plan I have confirmed that the patient's Advanced Care Plan is present, code status is documented, or surrogate decision maker is listed in patient medical record.: Yes Medication Reconciliation I have utilized all available resources to obtain, update and review the patients current medications (includes all prescriptions, OTC, herbals, cannabis, and nutritional supplements).: Yes
[2024-09-10] MEDS: MAGNESIUM SULF 2 GM/WATER 50ML 2 GM/50 ML BAG IVPB (06:31)
[2024-09-10] MEDS: KCL 20 MEQ/SW 100 ML 100 ML 50 MEQ IVPB (06:31)
[2024-09-10] MEDS: IPRATROPIUM 0.5 MG/ALBUTEROL SULFATE 2.5 MG AMPUL.NEB 3 ML INHALATION ×3 (08:58→19:55)
--- NOTE | 2024-09-10 08:58 | WPDCNINT ---
Assessment and Plan Assessment and plan (1) Febrile illness: Code(s): R50.9 - Fever, unspecified Status: Acute Assessment and Plan: 09/09: Patient presented with fevers, weakness, hypotension -UA was not reflective of UTI -A CT chest abdomen and pelvis without contrast demonstrating right pleural effusion, slightly dilated esophagus, bilateral renal cyst,. Bilateral fat containing inguinal hernias and small fat containing umbilical hernia. -09/09: Blood cultures obtain -no evidence of pneumonia or UTI, patient with generalized weakness and fevers could be related to bacteremia (patient has had E coli bacteremia in July 2023) -patient started on cefepime and vancomycin (09/09) -will deescalate antibiotics if cultures are negative (2) Sepsis: Code(s): A41.9 - Sepsis, unspecified organism Status: Acute Assessment and Plan: Patient was hypotensive in the ER, received 30 cc/kg IV fluids -central line was inserted -on Levophed for a very brief amount of time, once he came to the ICU it was discontinued as blood pressures were stable -this morning blood pressure is a in the 130s to 140 mm Hg -continue antibiotics as above (3) Chronic kidney disease, stage 3: Code(s): N18.30 - Chronic kidney disease, stage 3 unspecified Status: Acute Assessment and Plan: Patient with history of chronic kidney disease (baseline 2.50-3.26) -on admission creatinine was 2.37. -Creatinine this morning is 2.04 after adequate IV fluids -urine output has been adequate -continue to monitor renal function, electrolytes and urine output (4) Chronic obstructive pulmonary disease: Code(s): J44.9 - Chronic obstructive pulmonary disease, unspecified Status: Acute Assessment and Plan: Continue neb treatment (5) A-fib: Code(s): I48.91 - Unspecified atrial fibrillation Status: Acute Assessment and Plan: History of AFib -on carvedilol at home -will hold for now as patient was hypotensive requiring pressors briefly (6) Electrolyte imbalance: Code(s): E87.8 - Other disorders of electrolyte and fluid balance, not elsewhere classified Status: Acute Assessment and Plan: Potassium and magnesium being replaced (7) Hypertension: Code(s): I10 - Essential (primary) hypertension Status: Chronic Assessment and Plan: Patient on Coreg, lisinopril and chlorthalidone at home, continue to hold off on since patient was on pressors briefly and presented with hypotension (8) Type 2 diabetes mellitus: Code(s): E11.9 - Type 2 diabetes mellitus without complications Status: Chronic Assessment and Plan: Accu-Cheks and sliding scale insulin have been ordered Plan DVT prophylaxis: Lovenox Stress ulcer prophylaxis: Not indicated Nutrition: Renal diet Code Status: Full code Critical Care Time Spent: 49 minutes Due to a high probability of clinically significant, life threatening deterioration, the patient required my highest level of preparedness to intervene emergently and I personally spent this critical care time directly and personally managing the patient. This critical care time included obtaining a history; examining the patient; pulse oximetry; ordering and review of studies; arranging urgent treatment with development of a management plan; evaluation of patient's response to treatment; frequent reassessment; and discussions with other providers. It was exclusive of separately billable procedures and treating other patients and teaching time. Please see Assessment and Plan section and the rest of the note for further information on patient assessment and treatment This dictation may have been done utilizing a voice recognition system. Attempts have been made to correct errors. However, there may be uncorrected grammatical, spelling, and recognitions errors present. [employer] Department Chair Consult Note Consult date: 09/10/24 Reason for consult: Fevers, fatigue, generalized weakness, shortness of breath HPI: David Wei is a 83 year old male with past medical history of hypertension, insulin-dependent diabetes, COPD, CKD, AFib, GERD, 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 Off note patient was recently discharged from [facility] on 09/05/2024 where he was admitted for generalized weakness, vomiting with possible aspiration pneumonia, initially on Zosyn and was discharged to rehab on Augmentin. Unsure if patient continued his Augmentin at rehab. Patient also complain of being thirsty in feeling weak on this admission. In the ER patient had a fever of 101.2, patient was hypotensive with systolic blood pressures in the 70s which improved with IV fluids, patient was saturating 98% on room air, heart rates in the 60s to 80s. WBC count of 11.6, hemoglobin 9.1, platelets 601, INR 1.2, sodium 133, potassium 3.6, BUN 35, creatinine 2.37. Magnesium 1.4, albumin of 2.4 corrected calcium was 8.2. UA was unremarkable. Influenza, RSV, SARS-CoV-2 PCR were negative. - A CT chest abdomen and pelvis without contrast demonstrating right pleural effusion, slightly dilated esophagus, bilateral renal cyst,. Bilateral fat containing inguinal hernias and small fat containing umbilical hernia. Patient was given 30 mL/kg IV fluid bolus in the ER, blood pressures remained stable, was started on cefepime and vancomycin, blood cultures were obtained, patient was transferred to the ICU for further management after central line was placed Patient seen and examined this morning in the ICU, is awake, alert, pleasant gentleman currently in no acute distress. States he feels better but does not want to eat anything. Blood pressures is stable, patient is on room air with adequate O2 sats. Adequate urine output, afebrile this morning. WBC count has normalized. Potassium 3.3, creatinine trending down, close to baseline. C-reactive protein was 8.1. 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 He smokes 1-2 cigarettes per day most days. He denies marijuana use or other drug use. He drinks 1-2 alcoholic drinks per week. He has cats. Code status -full Surrogate decision maker - Smoking packs per day: 1 Smoking cigarettes per day: 20.0 Years smoked: 30 Smoking pack-years: 30.00 Smoking status: Former smoker Tobacco type: cigarettes Second hand tobacco smoke exposure: Yes Smoking end date: 08/11/03 Additional smoking assessment comments: marijuana daily and regular cigarettes smokes intermittently Alcohol intake: current Drinks per week: 2 Substance use: current Substance use type: marijuana Other substance usage details: smoke once a day Last use: 06/10/2024 Do You Feel Safe in your Home?: Yes Lack of Transportation: No Lack of Food: Never True Current Housing: I Have Housing Concerned About Future Housing: No Difficulty Paying Gas/Electric Bills: No Difficulty Paying for Meds: No Currently Unemployed: No Education: Master's Degree or Higher Difficulty w/ Childcare or Family Care: No Spiritual care concerns: No Meds Home Medications and Allergies Home Medications ?Medication ?Instructions ?Recorded ?Confirmed ?Type insulin glargine 100 unit/mL (3 20 unit subcut QHS 06/19/22 09/10/24 History mL) subcutaneous pen (Lantus Solostar U-100 Insulin) pantoprazole 40 mg tablet,delayed 40 mg PO DAILY 06/19/22 09/10/24 History release albuterol sulfate 90 mcg/actuation 2 puff inhalation QID PRN 06/21/22 09/10/24 Rx aerosol inhaler shortness of breath or wheezing #8.5 grams abiraterone 250 mg tablet 1,000 mg PO HS 03/26/24 09/10/24 History carvedilol 12.5 mg tablet 12.5 mg PO Q12H 03/26/24 09/10/24 History chlorthalidone 25 mg tablet 25 mg PO DAILY 03/26/24 09/10/24 History dorzolamide 22.3 mg-timolol 6.8 1 drp EACH EYE Q12H 03/26/24 09/10/24 History mg/mL eye drops insulin aspart U-100 100 unit/mL 1 sliding scale dose subcut TID 03/26/24 09/10/24 History (3 mL) subcutaneous pen (Novolog FlexPen U-100 Insulin aspart) lisinopril 20 mg tablet 40 mg PO DAILY 03/26/24 09/10/24 History pravastatin 20 mg tablet 20 mg PO HS 03/26/24 09/10/24 History sitagliptin phosphate 25 mg tablet 25 mg PO DAILY 03/26/24 09/10/24 History (Januvia) ondansetron 4 mg disintegrating 4 mg PO Q8H #14 tabs 08/28/24 09/10/24 Rx tablet tiotropium bromide 1.25 2 puff inhalation DAILY 30 days #4 09/05/24 09/10/24 Rx mcg/actuation mist for inhalation grams (Spiriva Respimat) mirtazapine 7.5 mg tablet 7.5 mg PO DAILY 09/10/24 09/10/24 History Allergies Allergy/AdvReac Type Severity Reaction Status Date / Time No Known Drug Allergies Allergy Unknown Other Verified 08/29/24 17:26 Vital Signs Vital Signs - 24 hr 09/09/24 18:35 09/09/24 19:08 09/09/24 19:10 Temperature 99.7 F H Pulse Rate 96 Respiratory Rate 20 Blood Pressure 106/52 L 79/47 L 101/46 L Pulse Oximetry 95 Oxygen Delivery Room Air 09/09/24 19:27 09/09/24 19:29 09/09/24 21:30 Temperature 101.2 F H Pulse Rate 92 84 Respiratory Rate 26 H 21 H Blood Pressure 101/46 L Pulse Oximetry 97 97 96 Oxygen Delivery Room Air 09/09/24 21:59 09/10/24 00:03 09/10/24 01:42 Temperature Pulse Rate 90 69 64 Respiratory Rate 17 20 Blood Pressure 120/51 L 91/52 L 91/53 L Pulse Oximetry 96 98 Oxygen Delivery 09/10/24 02:00 09/10/24 02:00 09/10/24 02:00 Temperature 97.9 F Pulse Rate 80 81 Respiratory Rate 20 Blood Pressure 136/77 136/77 Pulse Oximetry 97 98 Oxygen Delivery Room Air 09/10/24 02:04 09/10/24 02:05 09/10/24 02:15 Temperature Pulse Rate 81 81 81 Respiratory Rate 22 H 22 H Blood Pressure 91/53 L 91/53 L 100/59 L Pulse Oximetry 98 98 Oxygen Delivery 09/10/24 03:00 09/10/24 03:00 09/10/24 04:00 Temperature 98.4 F Pulse Rate 87 75 82 Respiratory Rate 19 Blood Pressure 99/76 L 99/76 L 117/62 Pulse Oximetry 98 Oxygen Delivery 09/10/24 04:00 09/10/24 04:00 09/10/24 04:39 Temperature Pulse Rate 80 79 Respiratory Rate Blood Pressure 117/62 Pulse Oximetry 98 Oxygen Delivery Room Air 09/10/24 06:00 09/10/24 06:00 09/10/24 06:00 Temperature Pulse Rate 65 66 66 Respiratory Rate 16 Blood Pressure 105/48 L 105/48 L Pulse Oximetry 96 Oxygen Delivery Exam Narrative: General: Pleasant elderly gentleman currently in no acute distress HEENT:? Pupils equal and reactive, sclera is clear, moist oral mucosa Neck:? Supple, no lymphadenopathy Respiratory:? Coarse breath sounds bilaterally, decreased at bases, adequate air entry otherwise Cardiac:? Irregularly irregular, rate controlled Abdomen:? Soft, nontender, nondistended, protuberant, normoactive bowel sound Extremities:? Bilateral trace pedal edema, palpable pedal pulses bilat Neuro:? Patient is awake, alert, oriented, able to answer questions appropriately and follows simple commands in all extremity Skin:? Skin bruising noted Psych:? Normal mentation and affect Results Labs 09/10/24 03:59 09/10/24 03:59 Labs: Short CBC 09/09/24 09/10/24 Range/Units 19:30 03:59 WBC 11.6 H 9.0 (4.5-10.0) K/mm3 Hgb 9.1 L 8.3 L (14.0-18.0) g/dL Hct 29.6 L 27.0 L (42.0-52.0) % Plt Count 601 H 520 H (150-375) k/mm3 BMP 09/09/24 09/10/24 09/10/24 19:30 03:59 03:59 Sodium 133 L 136 L Potassium 3.6 3.3 L Chloride 104 107 Carbon Dioxide 23 21 L BUN 35 H D 29 H Creatinine 2.37 H 2.06 H 2.04 H Glucose 204 H 141 H Calcium 7.7 L 7.3 L Liver Function 09/09/24 09/10/24 Range/Units 19:30 03:59 Total Bilirubin 0.4 0.3 (0.2-1.3) mg/dL AST 26 18 (17-59) U/L ALT 15 11 (6-50) U/L Alkaline Phosphatase 96 87 (38-126) U/L Albumin 2.7 L 2.4 L (3.5-5.1) g/dL Urine 09/09/24 Range/Units 21:36 Urine Color Yellow (Yellow) Urine Appearance Clear (Clear) Urine pH 5.0 (5.0-9.0) Ur Specific Mobile 1.010 (1.001-1.035) Urine Protein Trace (Negative) mg/dL Urine Glucose (UA) Negative (Negative) mg/dL Quality VTE Prophylaxis VTE prophylaxis: pharmacologic ordered Hospitalist MIPS Advance Care Plan I have confirmed that the patient's Advanced Care Plan is present, code status is documented, or surrogate decision maker is listed in patient medical record.: Yes Medication Reconciliation I have utilized all available resources to obtain, update and review the patients current medications (includes all prescriptions, OTC, herbals, cannabis, and nutritional supplements).: Yes
[2024-09-10] MEDS: ENOXAPARIN 40 MG/0.4 ML SYRINGE SUB-Q (10:52)
[2024-09-10] MEDS: FUROSEMIDE INJ 40 MG/4 ML VIAL IV PUSH (10:52)
[2024-09-10] MEDS: PANTOPRAZOLE 40 MG TABLET PO (10:54)
[2024-09-10] MEDS: UMECLIDINIUM BROMIDE 62.5 MCG ELLIPTA 1 PUFF INHALATION (13:12)
[2024-09-10] MEDS: ONDANSETRON INJ 4 MG/2 ML VIAL IV PUSH (13:19)
[2024-09-10 16:38] LABS: Glucose Point of Care 130 mg/dl (65-105)
[2024-09-10] MEDS: ACETAMINOPHEN 325 MG TABLET 650 MG PO (18:15)
[2024-09-10] MEDS: SODIUM CHLORIDE 0.9% IV 250 ML 100 ML IV CONT (20:26)
[2024-09-10] MEDS: PRAVASTATIN SODIUM 20 MG TABLET PO (20:26)
[2024-09-10 20:39] LABS: Glucose Point of Care 88 mg/dl (65-105)
[2024-09-11] VITALS (24 sets, daily range): BP systolic 90–129; BP diastolic 46–71; PULSE 70–99; RESP 14–24; TEMP 36.8–38.7; O2SAT 91–100
[2024-09-11] MEDS: IPRATROPIUM 0.5 MG/ALBUTEROL SULFATE 2.5 MG AMPUL.NEB 3 ML INHALATION ×4 (02:25→20:50)
[2024-09-11 06:49] LABS: Basophils Percent Auto 0.3 % (0.2-1.2); Eosinophils Absolute Auto 0.2 K/mm3 (0-0.3); Eosinophils Percent Auto 1.8 % (0-4.4); Hematocrit 28.4 % (42.0-52.0); Hemoglobin 8.3 g/dL (14.0-18.0); Lymphocytes Absolute Auto 1.68 K/mm3 (0.9-3.2); Lymphocytes Percent Auto 17.4 % (18.3-44.2); Mean Corpuscular HGB Conc 29.2 g/dl (32-36); Mean Corpuscular Hemoglobin 25.2 pg (26-34); Mean Corpuscular Volume 86.3 fl (80-100); Monocytes Absolute Auto 1.7 K/mm3 (0.1-0.6); Monocytes Percent Auto 17.1 % (2.6-8.5); Neutrophils Percent Auto 62.4 % (45.5-73.1); Platelet Count Result 501 k/mm3 (150-375); Red Blood Count 3.29 M/mm3 (4.6-6.20); Red Cell Distribution Width 15.4 % (11.5-14.5); White Blood Count 9.6 K/mm3 (4.5-10.0)
[2024-09-11 06:59] LABS: Alanine Aminotransferase 10 U/L (6-50); Albumin Level 2.4 g/dL (3.5-5.1); Alkaline Phosphatase 95 U/L (38-126); Anion Gap 5 mmol/L (4-12); Aspartate Amino Transferase 21 U/L (17-59); Bilirubin,Total 0.3 mg/dL (0.2-1.3); Blood Urea Nitrogen 30 mg/dL (9-20); Calcium 7.8 mg/dL (8.4-10.2); Carbon Dioxide 24 mmol/L (22-30); Chloride 107 mmol/L (98-107); Estimated CRCL calculation 22 ml/min; Estimated Glomerular Filt Rate 25; Glucose 104 mg/dL (65-110); Magnesium 1.6 mg/dL (1.6-2.3); Phosphorus 4.9 mg/dL (2.5-4.5); Potassium 3.8 mmol/L (3.4-5.0); Sodium 136 mmol/L (137-145)
[2024-09-11 07:13] LABS: Hypochromasia 1+; Platelet Estimate Increased (Adequate); Schistocytes None Seen
[2024-09-11] MEDS: UMECLIDINIUM BROMIDE 62.5 MCG ELLIPTA 1 PUFF INHALATION (07:50)
[2024-09-11] MEDS: ALBUMIN HUMAN 25% 25 GM/100 ML 100 ML IVPB ×4 (08:23→23:53)
[2024-09-11] MEDS: LACTATED RINGERS 1,000 ML 100 ML IV CONT (08:23)
[2024-09-11] MEDS: PANTOPRAZOLE 40 MG TABLET PO (08:24)
[2024-09-11] MEDS: MAGNESIUM SULF 2 GM/WATER 50ML 2 GM/50 ML BAG IVPB (08:24)
--- NOTE | 2024-09-11 08:35 | P.PNIM_ITS ---
Progress Note: A&P Assessment and Plan (1) Febrile illness: Code(s): R50.9 - Fever, unspecified Status: Acute Assessment and Plan: 09/09: Patient presented with fevers, weakness, hypotension -UA was not reflective of UTI -A CT chest abdomen and pelvis without contrast demonstrating right pleural effusion, slightly dilated esophagus, bilateral renal cyst,. Bilateral fat containing inguinal hernias and small fat containing umbilical hernia. -09/09: Blood cultures , preliminary blood cultures are negative x2 -no evidence of pneumonia or UTI, patient with generalized weakness and fevers could be related to bacteremia (patient has had E coli bacteremia in July 2023) -continue cefepime and vancomycin (09/09) -09/11: patient continues remain febrile with T-max of 103?F, will obtain lower extremity venous Doppler, chest x-ray, repeat blood cultures. Hemodynamically stable, will add albumin for intravascular volume repletion (2) Sepsis: Code(s): A41.9 - Sepsis, unspecified organism Status: Acute Assessment and Plan: Patient was hypotensive in the ER, received 30 cc/kg IV fluids -central line was inserted -on Levophed for a very brief amount of time, once he came to the ICU it was discontinued as blood pressures were stable - blood pressures stable -continue antibiotics as above (3) Chronic kidney disease, stage 3: Code(s): N18.30 - Chronic kidney disease, stage 3 unspecified Status: Acute Assessment and Plan: Patient with history of chronic kidney disease (baseline 2.50-3.26) -on admission creatinine was 2.37. -Creatinine this morning is 2.50 -patient did diurese well yesterday as he was volume overloaded and congested, negative fluid balance, -will add albumin, also will give LR 100 mL/hr for total of 1000 mL -urine output has been adequate -continue to monitor renal function, electrolytes and urine output (4) Chronic obstructive pulmonary disease: Code(s): J44.9 - Chronic obstructive pulmonary disease, unspecified Status: Acute Assessment and Plan: Continue neb treatments -continue home Spiriva (5) A-fib: Code(s): I48.91 - Unspecified atrial fibrillation Status: Acute Assessment and Plan: History of AFib -on carvedilol at home -will hold for now as patient was hypotensive -heart rate is controlled for now (6) Electrolyte imbalance: Code(s): E87.8 - Other disorders of electrolyte and fluid balance, not elsewhere classified Status: Acute Assessment and Plan: Magnesium replaced (7) Hypertension: Code(s): I10 - Essential (primary) hypertension Status: Chronic Assessment and Plan: Patient on Coreg, lisinopril and chlorthalidone at home, continue to hold off on since patient was on pressors briefly and presented with hypotension (8) Type 2 diabetes mellitus: Code(s): E11.9 - Type 2 diabetes mellitus without complications Status: Chronic Assessment and Plan: Accu-Cheks and sliding scale insulin have been ordered Plan DVT prophylaxis: Lovenox Stress ulcer prophylaxis: Not indicated Nutrition: Renal diet Code Status: Full code Due to a high probability of clinically significant, life threatening deterioration, the patient required my highest level of preparedness to intervene emergently and I personally spent this critical care time directly and personally managing the patient. This critical care time included obtaining a history; examining the patient; pulse oximetry; ordering and review of studies; arranging urgent treatment with development of a management plan; evaluation of patient's response to treatment; frequent reassessment; and discussions with other providers. It was exclusive of separately billable procedures and treating other patients and teaching time. Please see Assessment and Plan section and the rest of the note for further information on patient assessment and treatment This dictation may have been done utilizing a voice recognition system. Attempts have been made to correct errors. However, there may be uncorrected grammatical, spelling, and recognitions errors present. 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 Patient did not require any vasopressors Patient being seen and examined for the hospitalist team 09/11: Patient seen and examined, is awake, alert, oriented, did drop his blood pressures overnight and was given 250 mL IV fluid bolus. Febrile to a T-max of 103?, urine output has been adequate in response to diuresis. Currently hemodynamically stable. Denies any chest pain, shortness of breath, abdominal pain, nausea vomiting at this time. He states he is concerned about the fever Review of Systems Review of Systems: All systems reviewed & are unremarkable except as noted in HPI and below Exam Narrative: General: Pleasant elderly gentleman currently in no acute distress HEENT:? Pupils equal and reactive, sclera is clear, moist oral mucosa Neck:? Supple, no lymphadenopathy Respiratory:? Coarse breath sounds bilaterally, decreased at bases, adequate air entry otherwise Cardiac:? Irregularly irregular, rate controlled Abdomen:? Soft, nontender, nondistended, protuberant, normoactive bowel sound Extremities:? Bilateral trace pedal edema, palpable pedal pulses bilat Neuro:? Patient is awake, alert, oriented, able to answer questions appropriately and follows simple commands in all extremities Skin:? Skin bruising noted Psych:? Normal mentation and affect Objective Data Vital Signs Vital Signs: Vital Signs - 24 hr 09/10/24 08:55 09/10/24 10:00 09/10/24 10:00 Temperature Pulse Rate 72 78 68 Respiratory Rate Blood Pressure 148/78 H Pulse Oximetry Oxygen Delivery Fraction of Inspired Oxygen 09/10/24 10:00 09/10/24 12:00 09/10/24 12:00 Temperature 98.1 F Pulse Rate 74 82 Respiratory Rate 14 Blood Pressure 143/78 H 133/79 Pulse Oximetry 92 100 Oxygen Delivery Room Air Fraction of Inspired Oxygen 09/10/24 12:00 09/10/24 12:00 09/10/24 13:04 Temperature 98.6 F Pulse Rate 90 83 83 Respiratory Rate 22 H 20 Blood Pressure 131/64 Pulse Oximetry 93 Oxygen Delivery Fraction of Inspired Oxygen 09/10/24 14:00 09/10/24 14:00 09/10/24 14:00 Temperature Pulse Rate 86 87 76 Respiratory Rate 12 Blood Pressure 111/47 L 101/56 L Pulse Oximetry 95 Oxygen Delivery Fraction of Inspired Oxygen 09/10/24 16:00 09/10/24 16:00 09/10/24 16:00 Temperature 98.9 F Pulse Rate 82 90 Respiratory Rate 12 Blood Pressure 108/57 L Pulse Oximetry 95 93 Oxygen Delivery Room Air Fraction of Inspired Oxygen 09/10/24 18:00 09/10/24 18:00 09/10/24 18:15 Temperature 103.0 F H 103 F H Pulse Rate 78 85 Respiratory Rate 23 H Blood Pressure 102/60 Pulse Oximetry 95 Oxygen Delivery Fraction of Inspired Oxygen 09/10/24 19:15 09/10/24 19:55 09/10/24 19:56 Temperature 102 F H Pulse Rate 89 84 Respiratory Rate 20 20 Blood Pressure Pulse Oximetry 96 Oxygen Delivery Room Air Fraction of Inspired Oxygen 21 09/10/24 20:00 09/10/24 20:00 09/10/24 20:04 Temperature Pulse Rate 87 86 Respiratory Rate 20 Blood Pressure Pulse Oximetry 100 Oxygen Delivery Room Air Fraction of Inspired Oxygen 09/10/24 20:04 09/10/24 20:19 09/10/24 22:00 Temperature 99.7 F H Pulse Rate 88 87 Respiratory Rate 22 H Blood Pressure 87/40 L 87/40 L Pulse Oximetry 100 Oxygen Delivery Fraction of Inspired Oxygen 09/10/24 22:00 09/11/24 00:00 09/11/24 00:00 Temperature Pulse Rate 87 78 Respiratory Rate 18 Blood Pressure 105/52 L Pulse Oximetry 96 100 Oxygen Delivery Room Air Fraction of Inspired Oxygen 09/11/24 00:01 09/11/24 02:00 09/11/24 02:26 Temperature 98.3 F Pulse Rate 87 85 82 Respiratory Rate 21 H 20 Blood Pressure 101/49 L Pulse Oximetry 100 Oxygen Delivery Fraction of Inspired Oxygen 09/11/24 02:35 09/11/24 04:00 09/11/24 04:00 Temperature 99.5 F Pulse Rate 83 76 Respiratory Rate 20 19 Blood Pressure 90/46 L Pulse Oximetry 100 94 Oxygen Delivery Room Air Fraction of Inspired Oxygen 09/11/24 04:00 09/11/24 06:00 09/11/24 07:43 Temperature Pulse Rate 85 73 Respiratory Rate Blood Pressure Pulse Oximetry 93 Oxygen Delivery Room Air Fraction of Inspired Oxygen 09/11/24 07:43 09/11/24 07:50 09/11/24 08:00 Temperature Pulse Rate 86 75 90 Respiratory Rate 16 14 24 H Blood Pressure Pulse Oximetry 95 Oxygen Delivery Room Air Fraction of Inspired Oxygen 09/11/24 08:00 09/11/24 08:00 Temperature 100.6 F H Pulse Rate 90 90 Respiratory Rate 22 H Blood Pressure 111/67 Pulse Oximetry 95 Oxygen Delivery Fraction of Inspired Oxygen Intake/Output Intake/Output: Intake & Output 05/30/25 05/31/25 06/01/25 06/02/25 23:59 23:59 23:59 23:59 Intake Total 3550 1365.6 300 Output Total 2875 1000 Balance 3550 -1509.4 -700 Meds/Results Medications: Active Medications Generic Name Dose Route Start Last Admin Trade Name Freq PRN Reason Stop Dose Admin Acetaminophen 650 mg 09/10/24 00:24 09/10/24 18:15 Acetaminophen 325 Mg Tablet PO 650 mg Q4H PRN Administration Mild Pain (1-3) or Fever Albuterol/Ipratropium 3 ml 09/10/24 08:45 09/11/24 07:43 Ipratropium 0.5 Mg/Albuterol Sulfate 2.5 Mg Ampul.Neb 3 Ml INHALATION 3 ml Q6HRT PJ Administration Dextrose 12.5 gm 09/10/24 09:20 Dextrose 50% 25 Gm/50 Ml Syringe IV PUSH PRN PRN Hypoglycemia Protocol Enoxaparin Sodium 30 mg 09/11/24 09:00 Enoxaparin 30 Mg/0.3 Ml Syringe SUB-Q DAILY PJ Glucagon 1 mg 09/10/24 09:20 Glucagon For Inj 1 Mg Vial IM PRN PRN Hypoglycemia Protocol Glucose 15 gm 09/10/24 09:20 Glucose Oral Gel 15 Gm Of Glucse In 37.5 Gm Tube PO PRN PRN Hypoglycemia Protocol Vancomycin HCl 1,500 mg in 500 mls @ 250 mls/hr 09/11/24 11:00 Vancomycin 1,500 Mg/Ns 500 Ml IVPB Q36H PJ Dextrose 1,000 mls @ 100 mls/hr 09/10/24 09:20 Dextrose 5% 1,000 Ml IVPB PRN PRN Hypoglycemia Protocol Albumin Human 100 mls @ 60 mls/hr 09/11/24 07:24 09/11/24 08:23 Albutein IVPB 09/12/24 01:39 60 mls/hr Q6HR PJ Administration Lactated Ringer's 1,000 mls @ 100 mls/hr 09/11/24 07:25 09/11/24 08:23 Lr - Lactated Ringers Iv IV CONT 09/11/24 17:24 100 mls/hr .Q10H PJ Administration Magnesium Sulfate 2 gm in 50 mls @ 50 mls/hr 09/11/24 07:45 09/11/24 08:24 Magnesium Sulf 2 Gm/Water 50ml IVPB 09/11/24 08:44 50 mls/hr ONCE ONE Administration Insulin Aspart 1 - 3 units 09/10/24 21:00 09/10/24 20:28 Insulin Aspart (*Bkc) 100 Units/Ml SUB-Q Not Given HS [facility] Protocol Insulin Aspart 3 - 6 units 09/10/24 12:00 09/11/24 08:05 Insulin Aspart (*Bkc) 100 Units/Ml SUB-Q Not Given TIDWM [facility] Protocol Ondansetron HCl 4 mg 09/10/24 00:24 09/10/24 13:19 Ondansetron Inj 4 Mg/2 Ml Vial IV PUSH 4 mg Q4H PRN Administration Nausea Pantoprazole Sodium 40 mg 09/11/24 09:00 09/11/24 08:24 Pantoprazole 40 Mg Tablet PO 40 mg QAM [facility] Administration Pravastatin Sodium 20 mg 09/10/24 21:00 09/10/24 20:26 Pravastatin Sodium 20 Mg Tablet PO 20 mg HS [facility] Administration Sodium Chloride 10 ml 09/11/24 14:00 Central Line Flush IV PUSH Q8HR PJ Sodium Chloride 20 ml 09/11/24 08:00 Central Line Flush IV PUSH PRN PRN after blood draws Umeclidinium [place] 1 puff 09/10/24 09:00 09/11/24 07:50 Umeclidinium [place] 62.5 Mcg Ellipta INHALATION 1 puff DAILY PJ Administration Radiology Results: ITS Impressions Chest X-Ray 09/09/24 20:06 IMPRESSION: Cardiomegaly. Blunting of the posterior costophrenic angles suggestive of effusion with adjacent atelectasis. Chest/Abdomen/Pelvis CT 09/09/24 21:59 IMPRESSION: CHEST: 1. Right pleural effusion. 2. No other definite acute cardiopulmonary pathology seen. 3. Slightly dilated esophagus which may indicate reflux esophagitis. ABDOMEN/PELVIS: 1. No evidence of appendicitis, diverticulitis or intestinal obstruction. 2. Bilateral renal cysts with small density in the right kidney lower pole. Follow-up advised. 3. Bilateral fat containing inguinal hernias. Small fat-containing umbilical hernia. Labs Labs: Laboratory Results - last 24 hr 09/10/24 09/10/24 09/11/24 16:36 20:27 06:41 WBC 9.6 RBC 3.29 L Hgb 8.3 L Hct 28.4 L MCV 86.3 MCH 25.2 L MCHC 29.2 L RDW 15.4 H Plt Count 501 H MPV 9.0 Immature Gran % (Auto) 1.0 H Neut % (Auto) 62.4 Lymph % (Auto) 17.4 L [place] % (Auto) 17.1 H Eos % (Auto) 1.8 Baso % (Auto) 0.3 Lymph # (Auto) 1.68 [place] # (Auto) 1.7 H Eos # (Auto) 0.2 Baso # (Auto) 0.0 Abs Immat Gran (auto) 0.10 H Absolute Neuts (auto) 6.0 Absolute Nucleated RBC 0.000 Band Neutrophils % Not Reportable Nucleated RBC % 0.0 Platelet Estimate Increased Hypochromasia 1+ Schistocytes None seen Sodium 136 L Potassium 3.8 Chloride 107 Carbon Dioxide 24 Anion Gap 5 BUN 30 H Creatinine 2.50 H Estim Creat Clear Calc 22 Estimated GFR 25 L Glucose 104 POC Capillary Glucose 130 H 88 Calcium 7.8 L Phosphorus 4.9 H Magnesium 1.6 Total Bilirubin 0.3 AST 21 ALT 10 Alkaline Phosphatase 95 Total Protein 5.0 L Albumin 2.4 L Quality VTE Prophylaxis VTE prophylaxis: pharmacologic ordered
[2024-09-11 08:37] LABS: Glucose Point of Care 97 mg/dl (65-105)
[2024-09-11] MEDS: CEFEPIME 0.5 GM in DEXTROSE 5% IN WATER 50 ML IVPB (09:53)
[2024-09-11] MEDS: ENOXAPARIN 30 MG/0.3 ML SYRINGE SUB-Q (09:53)
[2024-09-11] MEDS: VANCOMYCIN 1,500 MG/NS 500 ML 1,500 MG/500 ML BAG 250 MG IVPB (10:44)
[2024-09-11 12:43] LABS: Procalcitonin. 1.8 ng/mL
[2024-09-11] MEDS: CENTRAL LINE FLUSH 10 ML IV PUSH ×2 (15:44→22:14)
[2024-09-11 16:47] LABS: Glucose Point of Care 119 mg/dl (65-105)
--- NOTE | 2024-09-11 19:30 | PC.NURSE ---
Discussed plan of care for the shift with patient and spouse.
[2024-09-11] MEDS: ACETAMINOPHEN 325 MG TABLET 650 MG PO (20:02)
[2024-09-11] MEDS: PRAVASTATIN SODIUM 20 MG TABLET PO (20:02)
[2024-09-11 20:27] LABS: Glucose Point of Care 121 mg/dl (65-105)
--- NOTE | 2024-09-11 21:40 | PC.NURSE ---
Spouse on telephone, updating staff on what patient stated to her and stated he sometimes forgets things. Staff discussed conversation with patient during medication administration and neurological assessment. Spouse upset with staff's tone.
[2024-09-11] MEDS: SODIUM CHLORIDE 0.9% IV 500 ML IV CONT (22:14)
[2024-09-12] VITALS (20 sets, daily range): BP systolic 94–118; BP diastolic 44–62; PULSE 69–99; RESP 16–20; TEMP 36.6–39.2; O2SAT 86–99; BMI 27.3
[2024-09-12] MEDS: IPRATROPIUM 0.5 MG/ALBUTEROL SULFATE 2.5 MG AMPUL.NEB 3 ML INHALATION ×4 (02:30→20:24)
--- NOTE | 2024-09-12 04:40 | PC.NURSE ---
Patient stated he will contact his spouse about his transfer to room 201.
--- NOTE | 2024-09-12 04:43 | PC.NURSE ---
This patient, David Wei, was transferred to [facility] on 09/12/24 at 0440 via bed without issue. Personal belongings sent with patient. Report given to SHEA Lyman and Saundra, Graduate Nurse. Appropriate documentation sent with patient.
--- NOTE | 2024-09-12 04:52 | PC.NURSE ---
This patient, David Wei, was received from [ ICU 3] on 09/12/24 at 0443. Patient/family oriented to unit policies and routines
[2024-09-12 05:09] LABS: Alanine Aminotransferase 9 U/L (6-50); Albumin Level 3.1 g/dL (3.5-5.1); Alkaline Phosphatase 101 U/L (38-126); Anion Gap 8 mmol/L (4-12); Aspartate Amino Transferase 18 U/L (17-59); Bilirubin,Total 0.5 mg/dL (0.2-1.3); Blood Urea Nitrogen 26 mg/dL (9-20); Calcium 8.1 mg/dL (8.4-10.2); Carbon Dioxide 23 mmol/L (22-30); Chloride 104 mmol/L (98-107); Estimated CRCL calculation 25 ml/min; Estimated Glomerular Filt Rate 30; Glucose 114 mg/dL (65-110); Magnesium 1.8 mg/dL (1.6-2.3); Phosphorus 4.2 mg/dL (2.5-4.5); Potassium 3.6 mmol/L (3.4-5.0); Sodium 135 mmol/L (137-145)
[2024-09-12] MEDS: CENTRAL LINE FLUSH 10 ML IV PUSH ×3 (05:16→19:59)
[2024-09-12 05:22] LABS: Lactic Acid Reflex 0.6 mmol/L (0.7-2.0)
[2024-09-12 07:02] LABS: Basophils Percent Auto 0.3 % (0.2-1.2); Eosinophils Absolute Auto 0.2 K/mm3 (0-0.3); Eosinophils Percent Auto 1.6 % (0-4.4); Hematocrit 27.3 % (42.0-52.0); Hemoglobin 7.8 g/dL (14.0-18.0); Lymphocytes Absolute Auto 1.43 K/mm3 (0.9-3.2); Lymphocytes Percent Auto 14.9 % (18.3-44.2); Mean Corpuscular HGB Conc 28.6 g/dl (32-36); Mean Corpuscular Hemoglobin 25.2 pg (26-34); Mean Corpuscular Volume 88.1 fl (80-100); Mean Platelet Volume 9.3 fl (7.4-10.4); Monocytes Absolute Auto 1.6 K/mm3 (0.1-0.6); Monocytes Percent Auto 16.5 % (2.6-8.5); Neutrophils Absolute Auto 6.3 K/mm3 (1.3-6.7); Neutrophils Percent Auto 65.7 % (45.5-73.1); Platelet Count Result 425 k/mm3 (150-375); Red Cell Distribution Width 15.6 % (11.5-14.5); White Blood Count 9.6 K/mm3 (4.5-10.0)
[2024-09-12 07:19] LABS: Hypochromasia 1+; Platelet Estimate Slightly Increased (Adequate)
[2024-09-12 07:20] LABS: Anisocytosis 1+; Ovalocytes 1+
[2024-09-12 07:21] LABS: Burr Cells 1+; Schistocytes None Seen
[2024-09-12 07:42] LABS: Glucose Point of Care 103 mg/dl (65-105)
[2024-09-12] MEDS: PANTOPRAZOLE 40 MG TABLET PO (08:17)
[2024-09-12] MEDS: ENOXAPARIN 30 MG/0.3 ML SYRINGE SUB-Q (08:17)
[2024-09-12] MEDS: UMECLIDINIUM BROMIDE 62.5 MCG ELLIPTA 1 PUFF INHALATION (08:34)
[2024-09-12] MEDS: ACETAMINOPHEN 325 MG TABLET 650 MG PO ×2 (08:54→17:50)
[2024-09-12] MEDS: CEFEPIME 0.5 GM in DEXTROSE 5% IN WATER 50 ML IVPB (08:58)
--- NOTE | 2024-09-12 09:00 | P.PNIM_ITS ---
Progress Note: A&P Assessment and Plan (1) Febrile illness: Code(s): R50.9 - Fever, unspecified Status: Acute Assessment and Plan: 09/09: Patient presented with fevers, weakness, hypotension -UA was not reflective of UTI -A CT chest abdomen and pelvis without contrast demonstrating right pleural effusion, slightly dilated esophagus, bilateral renal cyst,. Bilateral fat containing inguinal hernias and small fat containing umbilical hernia. -09/09: Blood cultures , preliminary blood cultures are negative x2 -no evidence of pneumonia or UTI, patient with generalized weakness and fevers could be related to bacteremia (patient has had E coli bacteremia in July 2023) -continue cefepime and vancomycin (09/09) -09/11: patient continues remain febrile with T-max of 103?F, venous duplex negative for DVT. Chest x-ray with new opacities of the right lower lung zone which could represent atelectasis or pneumonia with small right pleural effusion. Repeat blood cultures obtained. With recurrent fever recent bacteremia may need further evaluation for endocarditis. However blood culture has remained negative. Will repeat TTE. If the still spikes fever and other testing unconclusive; may need [facility] evaluation (2) Sepsis: Code(s): A41.9 - Sepsis, unspecified organism Status: Acute Assessment and Plan: Patient was hypotensive in the ER, received 30 cc/kg IV fluids -central line was inserted -on Levophed for a very brief amount of time, once he came to the ICU it was discontinued as blood pressures were stable - blood pressures stable -continue antibiotics as above (3) Chronic kidney disease, stage 3: Code(s): N18.30 - Chronic kidney disease, stage 3 unspecified Status: Acute Assessment and Plan: Patient with history of chronic kidney disease (baseline 2.50-3.26) -on admission creatinine was 2.37. -Creatinine this morning is 2.50 -patient did diurese well yesterday as he was volume overloaded and congested, negative fluid balance, -received albumin -urine output has been adequate -continue to monitor renal function, electrolytes and urine output (4) Chronic obstructive pulmonary disease: Code(s): J44.9 - Chronic obstructive pulmonary disease, unspecified Status: Acute Assessment and Plan: Continue neb treatments -continue home Spiriva (5) A-fib: Code(s): I48.91 - Unspecified atrial fibrillation Status: Acute Assessment and Plan: History of AFib -on carvedilol at home -will hold for now as patient was hypotensive -heart rate is controlled for now (6) Electrolyte imbalance: Code(s): E87.8 - Other disorders of electrolyte and fluid balance, not elsewhere classified Status: Acute Assessment and Plan: Magnesium replaced (7) Hypertension: Code(s): I10 - Essential (primary) hypertension Status: Chronic Assessment and Plan: Patient on Coreg, lisinopril and chlorthalidone at home, continue to hold off on since patient was on pressors briefly and presented with hypotension (8) Type 2 diabetes mellitus: Code(s): E11.9 - Type 2 diabetes mellitus without complications Status: Chronic Assessment and Plan: Accu-Cheks and sliding scale insulin have been ordered Plan DVT prophylaxis: Lovenox Stress ulcer prophylaxis: Not indicated Nutrition: Renal diet UIP pattern chronic interstitial lung disease mild Patulous esophagus with reflux esophagitis Code Status: Full code Subjective Date/time seen: 09/12/24 09:00 Interval history: David Wei is a 83 year old male with past medical history of hypertension, insulin-dependent diabetes, COPD, CKD, AFib, GERD, 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 Patient did not require any vasopressors Patient being seen and examined for the hospitalist team 09/11: Patient seen and examined, is awake, alert, oriented, did drop his blood pressures overnight and was given 250 mL IV fluid bolus. Febrile to a T-max of 103?, urine output has been adequate in response to diuresis. Currently hemodynamically stable. Denies any chest pain, shortness of breath, abdominal pain, nausea vomiting at this time. He states he is concerned about the fever 09/12/2024: Patient intermittently febrile. Had a spike night. Patient off Levophed. Labs reviewed. Review of Systems Review of Systems: All systems reviewed & are unremarkable except as noted in HPI and below Exam Narrative: General: Pleasant elderly gentleman currently in no acute distress HEENT:? Pupils equal and reactive, sclera is clear, moist oral mucosa Neck:? Supple, no lymphadenopathy Respiratory:? Coarse breath sounds bilaterally, decreased at bases, adequate air entry otherwise Cardiac:? Irregularly irregular, rate controlled Abdomen:? Soft, nontender, nondistended, protuberant, normoactive bowel sound Extremities:? Bilateral trace pedal edema, palpable pedal pulses bilat Neuro:? Patient is awake, alert, oriented, able to answer questions appropriately and follows simple commands in all extremities Skin:? Skin bruising noted Psych:? Normal mentation and affect Objective Data Vital Signs Vital Signs: Vital Signs - 24 hr 09/11/24 10:00 09/11/24 12:00 09/11/24 12:00 Temperature Pulse Rate 70 84 84 Respiratory Rate 22 H Blood Pressure Pulse Oximetry 95 Oxygen Delivery Room Air Oxygen Flow Rate Fraction of Inspired Oxygen 21 09/11/24 12:00 09/11/24 13:58 09/11/24 13:58 Temperature 99 F Pulse Rate 84 82 Respiratory Rate 22 H 15 Blood Pressure 129/71 Pulse Oximetry 95 96 Oxygen Delivery Room Air Oxygen Flow Rate Fraction of Inspired Oxygen 21 09/11/24 14:00 09/11/24 14:04 09/11/24 16:00 Temperature Pulse Rate 91 81 86 Respiratory Rate 18 22 H Blood Pressure Pulse Oximetry 93 Oxygen Delivery Room Air Oxygen Flow Rate Fraction of Inspired Oxygen 21 09/11/24 16:00 09/11/24 16:00 09/11/24 18:00 Temperature 99.7 F H Pulse Rate 81 86 86 Respiratory Rate 22 H Blood Pressure 112/56 L Pulse Oximetry 93 Oxygen Delivery Oxygen Flow Rate Fraction of Inspired Oxygen 09/11/24 20:00 09/11/24 20:00 09/11/24 20:00 Temperature 101.7 F H Pulse Rate 86 86 99 Respiratory Rate 22 H 22 H Blood Pressure 123/65 Pulse Oximetry 94 94 Oxygen Delivery Room Air Oxygen Flow Rate Fraction of Inspired Oxygen 09/11/24 20:02 09/11/24 20:50 09/11/24 20:51 Temperature 101.7 F H Pulse Rate 85 Respiratory Rate 18 Blood Pressure Pulse Oximetry 91 Oxygen Delivery Room Air Oxygen Flow Rate Fraction of Inspired Oxygen 09/11/24 21:00 09/11/24 22:00 09/11/24 22:00 Temperature 98.7 F Pulse Rate 85 92 Respiratory Rate 18 Blood Pressure Pulse Oximetry Oxygen Delivery Oxygen Flow Rate Fraction of Inspired Oxygen 09/11/24 23:20 09/12/24 00:00 09/12/24 00:00 Temperature 98.7 F Pulse Rate 94 92 83 Respiratory Rate 21 H 20 20 Blood Pressure 106/54 L 94/50 L Pulse Oximetry 98 97 98 Oxygen Delivery Nasal Cannula Oxygen Flow Rate 2 Fraction of Inspired Oxygen 09/12/24 00:00 09/12/24 02:00 09/12/24 02:30 Temperature Pulse Rate 87 91 83 Respiratory Rate 19 Blood Pressure Pulse Oximetry Oxygen Delivery Oxygen Flow Rate Fraction of Inspired Oxygen 09/12/24 02:42 09/12/24 04:00 09/12/24 04:00 Temperature 99.1 F Pulse Rate 83 80 81 Respiratory Rate 19 18 Blood Pressure 112/60 Pulse Oximetry 98 Oxygen Delivery Oxygen Flow Rate Fraction of Inspired Oxygen 09/12/24 04:00 09/12/24 06:00 09/12/24 07:30 Temperature 98.4 F Pulse Rate 81 69 88 Respiratory Rate 20 16 Blood Pressure 118/62 Pulse Oximetry 98 99 Oxygen Delivery Nasal Cannula Oxygen Flow Rate 2 Fraction of Inspired Oxygen 09/12/24 08:16 09/12/24 08:16 09/12/24 08:34 Temperature Pulse Rate 87 84 Respiratory Rate 20 20 Blood Pressure Pulse Oximetry 95 Oxygen Delivery Nasal Cannula Oxygen Flow Rate 2 Fraction of Inspired Oxygen Intake/Output Intake/Output: Intake & Output 09/09/24 09/10/24 09/11/24 09/12/24 23:59 23:59 23:59 23:59 Intake Total 3550 1365.6 1600 590 Output Total 2875 2100 1150 Balance 3550 -1509.4 -500 -560 Meds/Results Medications: Active Medications Generic Name Dose Route Start Last Admin Trade Name Freq PRN Reason Stop Dose Admin Acetaminophen 650 mg 09/10/24 00:24 09/11/24 20:02 Acetaminophen 325 Mg Tablet PO 650 mg Q4H PRN Administration Mild Pain (1-3) or Fever Albuterol/Ipratropium 3 ml 09/10/24 08:45 09/12/24 08:14 Ipratropium 0.5 Mg/Albuterol Sulfate 2.5 Mg Ampul.Neb 3 Ml INHALATION 3 ml Q6HRT PJ Administration Dextrose 12.5 gm 09/10/24 09:20 Dextrose 50% 25 Gm/50 Ml Syringe IV PUSH PRN PRN Hypoglycemia Protocol Enoxaparin Sodium 30 mg 09/11/24 09:00 09/12/24 08:17 Enoxaparin 30 Mg/0.3 Ml Syringe SUB-Q 30 mg DAILY PJ Administration Glucagon 1 mg 09/10/24 09:20 Glucagon For Inj 1 Mg Vial IM PRN PRN Hypoglycemia Protocol Glucose 15 gm 09/10/24 09:20 Glucose Oral Gel 15 Gm Of Glucse In 37.5 Gm Tube PO PRN PRN Hypoglycemia Protocol Vancomycin HCl 1,500 mg in 500 mls @ 250 mls/hr 09/11/24 11:00 09/11/24 10:44 Vancomycin 1,500 Mg/Ns 500 Ml IVPB 250 mls/hr Q36H PJ Administration Dextrose 1,000 mls @ 100 mls/hr 09/10/24 09:20 Dextrose 5% 1,000 Ml IVPB PRN PRN Hypoglycemia Protocol Cefepime HCl 0.5 gm/ Dextrose 50 mls @ 100 mls/hr 09/11/24 09:00 09/11/24 09:53 IVPB 100 mls/hr Q24H PJ Administration Insulin Aspart 1 - 3 units 09/10/24 21:00 09/11/24 20:03 Insulin Aspart (*Bkc) 100 Units/Ml SUB-Q Not Given HS PJ Protocol Insulin Aspart 3 - 6 units 09/10/24 12:00 09/12/24 08:16 Insulin Aspart (*Bkc) 100 Units/Ml SUB-Q Not Given TIDWM PJ Protocol Ondansetron HCl 4 mg 09/10/24 00:24 09/10/24 13:19 Ondansetron Inj 4 Mg/2 Ml Vial IV PUSH 4 mg Q4H PRN Administration Nausea Pantoprazole Sodium 40 mg 09/11/24 09:00 09/12/24 08:17 Pantoprazole 40 Mg Tablet PO 40 mg QAM PJ Administration Pravastatin Sodium 20 mg 09/10/24 21:00 09/11/24 20:02 Pravastatin Sodium 20 Mg Tablet PO 20 mg HS PJ Administration Sodium Chloride 10 ml 09/11/24 14:00 09/12/24 05:16 Central Line Flush IV PUSH 10 ml Q8HR PJ Administration Sodium Chloride 20 ml 09/11/24 08:00 Central Line Flush IV PUSH PRN PRN after blood draws Umeclidinium [place] 1 puff 09/10/24 09:00 09/12/24 08:34 Umeclidinium [place] 62.5 Mcg Ellipta INHALATION 1 puff DAILY PJ Administration Radiology Results: ITS Impressions Chest/Abdomen/Pelvis CT 09/09/24 21:59 IMPRESSION: CHEST: 1. Right pleural effusion. 2. No other definite acute cardiopulmonary pathology seen. 3. Slightly dilated esophagus which may indicate reflux esophagitis. ABDOMEN/PELVIS: 1. No evidence of appendicitis, diverticulitis or intestinal obstruction. 2. Bilateral renal cysts with small density in the right kidney lower pole. Follow-up advised. 3. Bilateral fat containing inguinal hernias. Small fat-containing umbilical hernia. Chest X-Ray 09/11/24 09:02 IMPRESSION: 1. New opacities at the right lower lung zone which could represent atelectasis or pneumonia. 2. Small right pleural effusion. Venous Doppler Study 09/11/24 10:07 IMPRESSION: 1: No lower extremity deep venous thrombosis. Labs Labs: Laboratory Results - last 24 hr 09/11/24 09/11/24 09/11/24 09:12 16:44 20:00 WBC RBC Hgb Hct MCV MCH MCHC RDW Plt Count MPV Immature Gran % (Auto) Neut % (Auto) Lymph % (Auto) [place] % (Auto) Eos % (Auto) Baso % (Auto) Lymph # (Auto) [place] # (Auto) Eos # (Auto) Baso # (Auto) Abs Immat Gran (auto) Absolute Neuts (auto) Absolute Nucleated RBC Band Neutrophils % Nucleated RBC % Platelet Estimate Hypochromasia Anisocytosis Ovalocytes Vick Cells Schistocytes Sodium Potassium Chloride Carbon Dioxide Anion Gap BUN Creatinine Estim Creat Clear Calc Estimated GFR Glucose POC Capillary Glucose 119 H 121 H Lactic Acid Calcium Phosphorus Magnesium Total Bilirubin AST ALT Alkaline Phosphatase Total Protein Albumin Procalcitonin 1.8 09/12/24 09/12/24 04:00 07:33 WBC 9.6 RBC 3.10 L Hgb 7.8 L Hct 27.3 L MCV 88.1 MCH 25.2 L MCHC 28.6 L RDW 15.6 H Plt Count 425 H MPV 9.3 Immature Gran % (Auto) 1.0 H Neut % (Auto) 65.7 Lymph % (Auto) 14.9 L [place] % (Auto) 16.5 H Eos % (Auto) 1.6 Baso % (Auto) 0.3 Lymph # (Auto) 1.43 [place] # (Auto) 1.6 H Eos # (Auto) 0.2 Baso # (Auto) 0.0 Abs Immat Gran (auto) 0.10 H Absolute Neuts (auto) 6.3 Absolute Nucleated RBC 0.000 Band Neutrophils % Not Reportable Nucleated RBC % 0.0 Platelet Estimate Slightly increased Hypochromasia 1+ Anisocytosis 1+ Ovalocytes 1+ Vick Cells 1+ Schistocytes None seen Sodium 135 L Potassium 3.6 Chloride 104 Carbon Dioxide 23 Anion Gap 8 BUN 26 H Creatinine 2.15 H Estim Creat Clear Calc 25 Estimated GFR 30 L Glucose 114 H POC Capillary Glucose 103 Lactic Acid 0.6 L Calcium 8.1 L Phosphorus 4.2 Magnesium 1.8 Total Bilirubin 0.5 AST 18 ALT 9 Alkaline Phosphatase 101 Total Protein 6.0 L Albumin 3.1 L Procalcitonin
[2024-09-12 11:47] LABS: Glucose Point of Care 176 mg/dl (65-105)
[2024-09-12] MEDS: CEFEPIME 1 GM/NS 50 ML 1 GM/50 ML BAG IVPB ×2 (12:26→20:00)
[2024-09-12 15:43] LABS: Glucose Point of Care 182 mg/dl (65-105)
[2024-09-12] MEDS: PRAVASTATIN SODIUM 20 MG TABLET PO (19:57)
[2024-09-12 20:09] LABS: Glucose Point of Care 143 mg/dl (65-105)
[2024-09-13] VITALS (13 sets, daily range): BP systolic 113–142; BP diastolic 50–73; PULSE 69–103; RESP 18–32; TEMP 36.5–37.6; O2SAT 92–100
--- NOTE | 2024-09-13 | ECHO_ITS ---
Patient Info Name: David Wei Age: 83 years : 1940 Gender: Male Ht: 70 in Wt: 198 lbs BSA: 2.12 m2 HR: 91 bpm BP: 124 / 59 mmHg Technical Quality: Fair Exam Date: 09/13/2024 8:22 AM Patient Status: I Admit Date: 09/10/2024 Exam Type: CA echo doppler limited Limited two-dimensional transthoracic echocardiogram is performed. Staff Referring Physician: Ben Grossman MD [place] Erector: Ariela Pool Attending Provider: [place] Corona Summary 1. Left ventricular chamber dimension is mildly enlarged. 2. Left ventricular systolic function is normal, estimated at 60-65. 3. The left ventricular diastolic function is indeterminate as it was not assessed. 4. Left atrial chamber dimension is mildly enlarged. 5. There is moderate aortic valve sclerosis. 6. The mitral valve has a mildly calcified annulus. Left Ventricle No subcostal images obtained. Left ventricular chamber dimension is mildly enlarged. Left ventricular systolic function is normal, estimated at 60-65. The left ventricular diastolic function is indeterminate as it was not assessed. Right Ventricle Right ventricular chamber dimension is normal. Right ventricular systolic function is normal. Left Atria Left atrial chamber dimension is mildly enlarged. Right Atria Right atrial chamber dimension is normal. Aortic Valve The aortic valve is probable trileaflet. There is moderate aortic valve sclerosis. There is no aortic valve stenosis. There is no aortic valve regurgitation. No aortic valve vegetation visualized. Pulmonic Valve There is no pulmonic regurgitation. No pulmonic valve vegetation visualized. Mitral Valve The mitral valve has a mildly calcified annulus. There is no mitral valve stenosis. There is no mitral valve regurgitation. No mitral valve vegetation visualized. Tricuspid Valve There is no tricuspid valve regurgitation. Cannot rule out tricuspid valve vegetation visualized. Pericardium/Pleural There is no pericardial effusion. Inferior Vena Cava Inferior vena cava is not well visualized. Aorta The aortic root size at the sinus of Valsalva is normal. Left Ventricular Outflow Tract Name Value Normal LVOT 2D LVOT Diameter 2.3 cm LVOT Doppler LVOT Peak Velocity 120 cm/s LVOT Peak Gradient 6 mmHg LVOT Mean Gradient 3 mmHg LVOT VTI 17 cm LVOT Stroke Volume 70 ml LVOT CO 3.6 l/min LVOT CI 1.7 l/min/m2 Aortic Valve Name Value Normal AV Regurgitation 2D LVOT Area 4.0 cm2 Ventricles Name Value Normal LV Dimensions 2D/MM IVS Diastolic Thickness (2D) 1.0 cm 0.6-1.0 LVID Diastole (2D) 5.2 cm 4.2-5.8 LVIW Diastolic Thickness (2D) 1.0 cm 0.6-1.0 LVID Systole (2D) 3.8 cm 2.5-4.0 LVOT Diameter 2.3 cm LV Mass (2D Cubed) 191.99 g 88.00-224.00 LV Mass Index (2D Cubed) 90 g/m2 49-115 Relative Wall Thickness (2D) 0.39 <=0.42 LV Fractional Shortening/Ejection Fraction 2D/MM LV Fractional Shortening (2D) 27 % 25-43 LV EF (2D Teichholz) 52 % LV Diastolic Volume (4C MOD) 79 ml LV EF (4C MOD) 57 % LV Diastolic Volume (2C MOD) 77 ml LV EF (2C MOD) 67 % LV Diastolic Volume (BP MOD) 80 ml 62-150 LV Diastolic Volume Index (BP MOD) 38 ml/m2 34-74 LV Systolic Volume (BP MOD) 30 ml 21-61 LV Systolic Volume Index (BP MOD) 14 ml/m2 11-31 LV EF (BP MOD) 63 % 52-72 LV Diastolic Length (4C) 7.6 cm LV Systolic Length (4C) 6.6 cm LV Stroke Volume (4C MOD) 45 ml Report Signatures
[2024-09-13] MEDS: IPRATROPIUM 0.5 MG/ALBUTEROL SULFATE 2.5 MG AMPUL.NEB 3 ML INHALATION ×4 (01:43→19:43)
--- NOTE | 2024-09-13 04:15 | PC.NURSE ---
I have reviewed Saundra's assessment of the pt. and Saundra's charting and agree with Saundra's assessment of pt. and charting.
[2024-09-13] MEDS: CENTRAL LINE FLUSH 10 ML IV PUSH (05:32)
[2024-09-13 07:34] LABS: Basophils Percent Auto 0.3 % (0.2-1.2); Eosinophils Absolute Auto 0.2 K/mm3 (0-0.3); Eosinophils Percent Auto 1.8 % (0-4.4); Hematocrit 30.7 % (42.0-52.0); Immature Granulocyte Absolute 0.08 K/mm3 (0.00-0.031); Immature Granulocyte Percent A 0.7 % (0-0.5); Lymphocytes Percent Auto 12.3 % (18.3-44.2); Mean Corpuscular HGB Conc 29.3 g/dl (32-36); Mean Corpuscular Hemoglobin 25.3 pg (26-34); Mean Corpuscular Volume 86.2 fl (80-100); Monocytes Absolute Auto 1.5 K/mm3 (0.1-0.6); Monocytes Percent Auto 12.3 % (2.6-8.5); Neutrophils Absolute Auto 8.9 K/mm3 (1.3-6.7); Neutrophils Percent Auto 72.6 % (45.5-73.1); Platelet Count Result 450 k/mm3 (150-375); Red Blood Count 3.56 M/mm3 (4.6-6.20); Red Cell Distribution Width 15.4 % (11.5-14.5); White Blood Count 12.2 K/mm3 (4.5-10.0)
[2024-09-13 07:50] LABS: Anion Gap 8 mmol/L (4-12); Blood Urea Nitrogen 26 mg/dL (9-20); Calcium 8.4 mg/dL (8.4-10.2); Carbon Dioxide 24 mmol/L (22-30); Chloride 105 mmol/L (98-107); Estimated CRCL calculation 22 ml/min; Estimated Glomerular Filt Rate 26; Glucose 112 mg/dL (65-110); Magnesium 1.6 mg/dL (1.6-2.3); Potassium 3.6 mmol/L (3.4-5.0); Sodium 137 mmol/L (137-145)
[2024-09-13 07:56] LABS: Glucose Point of Care 110 mg/dl (65-105)
[2024-09-13] MEDS: UMECLIDINIUM BROMIDE 62.5 MCG ELLIPTA 1 PUFF INHALATION (08:19)
[2024-09-13 08:24] LABS: Hypochromasia 2+; Ovalocytes 1+; Platelet Estimate Increased (Adequate); Schistocytes None Seen
--- NOTE | 2024-09-13 09:04 | P.PNIM_ITS ---
Progress Note: A&P Assessment and Plan (1) Febrile illness: Code(s): R50.9 - Fever, unspecified Status: Acute Assessment and Plan: 09/09: Patient presented with fevers, weakness, hypotension -UA was not reflective of UTI -CT Ch/A/P without contrast demonstrating right pleural effusion, slightly dilated esophagus, bilateral renal cyst,. Bilateral fat containing inguinal hernias and small fat containing umbilical hernia. -09/09: BCx NGTD MRSA nasal swab negative. COVID, influenza and RSV PCR negative. Started on cefepime and vancomycin (09/09) but vanco stopped on 09/11. Venous duplex negative for DVT. CXR with new opacities of the right lower lung zone which could represent atelectasis or pneumonia with small right pleural effusion. Repeat BCx 09/12 NGTD CRP 8 -> 27. WBC higher at 12K. But fever curve better. Patient feels better. Continue Cefepime for now. TTE ordered. Hx of aspiration PNA so will have speech therapy evaluate. Consider BERNA to exclude endocarditis but felt unlikely with negative BCx. (2) Sepsis: Code(s): A41.9 - Sepsis, unspecified organism Status: Acute Assessment and Plan: Patient was hypotensive in the ER, received 30 cc/kg IV fluids and central line was inserted Levophed started but able to be weaned off Blood pressures stable Continue antibiotics as above (3) Chronic kidney disease, stage 3: Code(s): N18.30 - Chronic kidney disease, stage 3 unspecified Status: Acute Assessment and Plan: Patient with history of CKD (baseline 2.50-3.26) On admission creatinine was 2.37. -patient did diurese well as he was volume overloaded and congested -received albumin -urine output has been adequate Cr stable at 2.4 -continue to monitor renal function, electrolytes and urine output (4) Chronic obstructive pulmonary disease: Code(s): J44.9 - Chronic obstructive pulmonary disease, unspecified Status: Acute Assessment and Plan: No wheezing appreciated. Continue neb treatments. Continue home Spiriva Wean O2 as tolerated. (5) A-fib: Code(s): I48.91 - Unspecified atrial fibrillation Status: Acute Assessment and Plan: History of AFib -on carvedilol at home -will hold for now as patient's BP still soft -heart rate is controlled for now (6) Hypertension: Code(s): I10 - Essential (primary) hypertension Status: Chronic Assessment and Plan: Patient on Coreg, lisinopril and chlorthalidone at home. Continue to hold off on since patient was on pressors briefly and now with soft BP. Resume home meds as BP tolerates. (7) Type 2 diabetes mellitus: Code(s): E11.9 - Type 2 diabetes mellitus without complications Status: Chronic Assessment and Plan: The patient's blood glucose was reviewed on 09/13 Glucose remains well controlled. Continue AccuCheks covering with sliding scale. Hypoglycemia protocol available as needed. Resume home lantus and aspart when able (8) Renal mass: Code(s): N28.89 - Other specified disorders of kidney and ureter Status: Acute Assessment and Plan: Incidental finding by CT showing a left upper pole cyst measuring 2.9 cm. Exophytic cyst is seen in the right kidney midpole measuring 3 cm. Tiny hypodense lesion seen in the right kidney lower pole most likely hemorrhagic cyst. Tiny mass cannot be excluded. Follow-up advised. Will need outpatient followup Plan DVT prophylaxis: Lovenox Code Status: Full code Subjective Date/time seen: 09/13/24 09:04 Interval history: 83yo male with HTN, insulin-dependent DM, COPD, CKD, AFib, GERD, prostate cancer with Mets to bones and HLD who presented the ED on 09/09/2024 with complains of fatigue, shortness of breath, weakness and fevers. Patient recently hospitalized 08/29-09/05 for COPD, aspiration PNA, and GABRIELA/CKD. Assuming care. Chart reviewed. Febrile yesterday to a T-max of 102.5? but afebrile overnight. Feeling better. Does not wear O2 at home. No SOB or CP. Slight nonproductive cough. No odynophagia or dysphagia. Exam Narrative: Tm 102.5 98.8 119/51 103 20 95% 2L Gen - NARD lying semi-recumbent in bed Chest - bronchial BS. no egophony. nml RR CV - irregular with 2/6 systolic heard t/o the precordium Abd - Soft, NT/ND, Positive BS Ext - No pedal edema. Right femoral central line in place. Psych - Nml mood and affect Skin - Warm and dry Objective Data Vital Signs Vital Signs: Vital Signs - 24 hr 09/12/24 10:00 09/12/24 10:08 09/12/24 15:32 Temperature 100.3 F H Pulse Rate 90 92 Respiratory Rate 18 Blood Pressure 97/44 L 101/45 L Pulse Oximetry 91 Oxygen Delivery Oxygen Flow Rate 09/12/24 15:44 09/12/24 17:50 09/12/24 19:00 Temperature 102.5 F H 99.4 F Pulse Rate 72 Respiratory Rate 18 Blood Pressure Pulse Oximetry Oxygen Delivery Oxygen Flow Rate 09/12/24 20:27 09/12/24 20:27 09/12/24 20:37 Temperature Pulse Rate 87 88 Respiratory Rate 18 18 Blood Pressure Pulse Oximetry 86 L Oxygen Delivery Room Air Oxygen Flow Rate 09/12/24 20:43 09/12/24 23:35 09/13/24 01:46 Temperature 99.4 F 97.8 F Pulse Rate 98 99 69 Respiratory Rate 18 18 18 Blood Pressure 108/51 L 107/50 L Pulse Oximetry 95 97 Oxygen Delivery Oxygen Flow Rate 09/13/24 01:55 09/13/24 04:00 09/13/24 07:40 Temperature 97.7 F 98.8 F Pulse Rate 69 77 97 Respiratory Rate 18 18 18 Blood Pressure 124/59 L 119/51 L Pulse Oximetry 96 99 Oxygen Delivery Oxygen Flow Rate 09/13/24 08:14 09/13/24 08:14 09/13/24 08:23 Temperature Pulse Rate 89 103 H Respiratory Rate 20 20 Blood Pressure Pulse Oximetry 95 Oxygen Delivery Nasal Cannula Oxygen Flow Rate 2 Intake/Output Intake/Output: Intake & Output 09/10/24 09/11/24 09/12/24 09/13/24 23:59 23:59 23:59 23:59 Intake Total 1365.6 1650 980 610 Output Total 2875 2100 1950 [facility] [place] -1509.4 -[phone] Meds/Results Medications: Active Medications Generic Name Dose Route Start Last Admin Trade Name Freq PRN Reason Stop Dose Admin Acetaminophen 650 mg 09/10/24 00:24 09/12/24 17:50 Acetaminophen 325 Mg Tablet PO 650 mg Q4H PRN Administration Mild Pain (1-3) or Fever Albuterol/Ipratropium 3 ml 09/10/24 08:45 09/13/24 08:12 Ipratropium 0.5 Mg/Albuterol Sulfate 2.5 Mg Ampul.Neb 3 Ml INHALATION 3 ml Q6HRT PJ Administration Dextrose 12.5 gm 09/10/24 09:20 Dextrose 50% 25 Gm/50 Ml Syringe IV PUSH PRN PRN Hypoglycemia Protocol Enoxaparin Sodium 30 mg 09/11/24 09:00 09/12/24 08:17 Enoxaparin 30 Mg/0.3 Ml Syringe SUB-Q 30 mg DAILY PJ Administration Glucagon 1 mg 09/10/24 09:20 Glucagon For Inj 1 Mg Vial IM PRN PRN Hypoglycemia Protocol Glucose 15 gm 09/10/24 09:20 Glucose Oral Gel 15 Gm Of Glucse In 37.5 Gm Tube PO PRN PRN Hypoglycemia Protocol Dextrose 1,000 mls @ 100 mls/hr 09/10/24 09:20 Dextrose 5% 1,000 Ml IVPB PRN PRN Hypoglycemia Protocol Cefepime HCl 1 gm in 50 mls @ 100 mls/hr 09/12/24 12:00 09/12/24 20:30 Maxipime 1 Gm/Ns 50 Ml IVPB Infused Q12HR PJ Infusion Insulin Aspart 1 - 3 units 09/10/24 21:00 09/12/24 20:07 Insulin Aspart (*Bkc) 100 Units/Ml SUB-Q Not Given HS PJ Protocol Insulin Aspart 3 - 6 units 09/10/24 12:00 09/12/24 15:47 Insulin Aspart (*Bkc) 100 Units/Ml SUB-Q Not Given TIDWM PJ Protocol Ondansetron HCl 4 mg 09/10/24 00:24 09/10/24 13:19 Ondansetron Inj 4 Mg/2 Ml Vial IV PUSH 4 mg Q4H PRN Administration Nausea Pantoprazole Sodium 40 mg 09/11/24 09:00 09/12/24 08:17 Pantoprazole 40 Mg Tablet PO 40 mg QAM PJ Administration Perflutren Lipid Microsphere 0 ml 09/12/24 09:27 Perflutren Lipid Microspheres 1.5 Ml Vial Diluted To 10 Ml Total Volume IV PUSH 09/15/24 09:27 ONCE PRN adequate visualization Protocol Pravastatin Sodium 20 mg 09/10/24 21:00 09/12/24 19:57 Pravastatin Sodium 20 Mg Tablet PO 20 mg HS PJ Administration Sodium Chloride 10 ml 09/11/24 14:00 09/13/24 05:32 Central Line Flush IV PUSH 10 ml Q8HR PJ Administration Sodium Chloride 20 ml 09/11/24 08:00 Central Line Flush IV PUSH PRN PRN after blood draws Umeclidinium [place] 1 puff 09/10/24 09:00 09/13/24 08:19 Umeclidinium [place] 62.5 Mcg Ellipta INHALATION 1 puff DAILY PJ Administration Radiology Results: ITS Impressions Chest/Abdomen/Pelvis CT 09/09/24 21:59 IMPRESSION: CHEST: 1. Right pleural effusion. 2. No other definite acute cardiopulmonary pathology seen. 3. Slightly dilated esophagus which may indicate reflux esophagitis. ABDOMEN/PELVIS: 1. No evidence of appendicitis, diverticulitis or intestinal obstruction. 2. Bilateral renal cysts with small density in the right kidney lower pole. Follow-up advised. 3. Bilateral fat containing inguinal hernias. Small fat-containing umbilical hernia. Chest X-Ray 09/11/24 09:02 IMPRESSION: 1. New opacities at the right lower lung zone which could represent atelectasis or pneumonia. 2. Small right pleural effusion. Venous Doppler Study 09/11/24 10:07 IMPRESSION: 1: No lower extremity deep venous thrombosis. Labs Labs: Laboratory Results - last 24 hr 09/12/24 09/12/24 09/12/24 11:21 15:34 20:07 WBC RBC Hgb Hct MCV MCH MCHC RDW Plt Count MPV Immature Gran % (Auto) Neut % (Auto) Lymph % (Auto) [place] % (Auto) Eos % (Auto) Baso % (Auto) Lymph # (Auto) [place] # (Auto) Eos # (Auto) Baso # (Auto) Abs Immat Gran (auto) Absolute Neuts (auto) Absolute Nucleated RBC Band Neutrophils % Nucleated RBC % Platelet Estimate Hypochromasia Ovalocytes Schistocytes Sodium Potassium Chloride Carbon Dioxide Anion Gap BUN Creatinine Estim Creat Clear Calc Estimated GFR Glucose POC Capillary Glucose 176 H 182 H 143 H Calcium Phosphorus Magnesium Albumin 09/13/24 09/13/24 07:24 07:43 WBC 12.2 H RBC 3.56 L Hgb 9.0 L Hct 30.7 L MCV 86.2 MCH 25.3 L MCHC 29.3 L RDW 15.4 H Plt Count 450 H MPV 9.0 Immature Gran % (Auto) 0.7 H Neut % (Auto) 72.6 Lymph % (Auto) 12.3 L [place] % (Auto) 12.3 H Eos % (Auto) 1.8 Baso % (Auto) 0.3 Lymph # (Auto) 1.50 [place] # (Auto) 1.5 H Eos # (Auto) 0.2 Baso # (Auto) 0.0 Abs Immat Gran (auto) 0.08 H Absolute Neuts (auto) 8.9 H Absolute Nucleated RBC 0.000 Band Neutrophils % Not Reportable Nucleated RBC % 0.0 Platelet Estimate Increased Hypochromasia 2+ Ovalocytes 1+ Schistocytes None seen Sodium 137 Potassium 3.6 Chloride 105 Carbon Dioxide 24 Anion Gap 8 BUN 26 H Creatinine 2.39 H Estim Creat Clear Calc 22 Estimated GFR 26 L Glucose 112 H POC Capillary Glucose 110 H Calcium 8.4 Phosphorus 4.0 Magnesium 1.6 Albumin 3.0 L
[2024-09-13] MEDS: CEFEPIME 1 GM/NS 50 ML 1 GM/50 ML BAG IVPB ×2 (09:09→21:49)
[2024-09-13] MEDS: ENOXAPARIN 30 MG/0.3 ML SYRINGE SUB-Q (09:09)
[2024-09-13] MEDS: PANTOPRAZOLE 40 MG TABLET PO (09:09)
[2024-09-13 09:25] LABS: CRP. > 27.0 mg/dL (<1.0)
[2024-09-13] MEDS: MIRTAZAPINE 7.5 MG TABLET PO (10:21)
[2024-09-13] MEDS: DORZOLAMIDE/TIMOLOL OPHTH SOL 10 ML BOTTLE 1 DROP EACH EYE ×2 (10:21→21:50)
--- NOTE | 2024-09-13 11:12 | PCSTNOTE ---
Please refer to the Bedside Swallow Evaluation in the EMR. Please note, silent aspiration cannot be ruled out at bedside.
[2024-09-13 11:46] LABS: Glucose Point of Care 148 mg/dl (65-105)
--- NOTE | 2024-09-13 15:22 | PC.NURSE ---
Notified Rosy () that patient is being moved to room 314.
--- NOTE | 2024-09-13 15:45 | PC.NURSE ---
Transferred to room 314-2 from IMU per hospital bed.
[2024-09-13 16:18] LABS: Glucose Point of Care 138 mg/dl (65-105)
[2024-09-13] MEDS: PRAVASTATIN SODIUM 20 MG TABLET PO (21:49)
[2024-09-13 21:51] LABS: Glucose Point of Care 127 mg/dl (65-105)
[2024-09-14] VITALS (14 sets, daily range): BP systolic 104–108; BP diastolic 50–72; PULSE 76–99; RESP 19–32; TEMP 36.1–38.3; O2SAT 84–100
--- NOTE | 2024-09-14 03:45 | PCRCNOTE ---
Window of time for administration has passed. See next scheduled administration.
[2024-09-14] MEDS: ACETAMINOPHEN 325 MG TABLET 650 MG PO (05:16)
[2024-09-14 06:40] LABS: Basophils Absolute Auto 0.1 K/mm3 (0.0-0.1); Basophils Percent Auto 0.7 % (0.2-1.2); Eosinophils Absolute Auto 0.2 K/mm3 (0-0.3); Eosinophils Percent Auto 1.3 % (0-4.4); Hematocrit 28.3 % (42.0-52.0); Hemoglobin 8.3 g/dL (14.0-18.0); Immature Granulocyte Percent A 0.9 % (0-0.5); Lymphocytes Absolute Auto 1.73 K/mm3 (0.9-3.2); Lymphocytes Percent Auto 14.9 % (18.3-44.2); Mean Corpuscular HGB Conc 29.3 g/dl (32-36); Mean Corpuscular Hemoglobin 25.5 pg (26-34); Mean Corpuscular Volume 86.8 fl (80-100); Mean Platelet Volume 9.5 fl (7.4-10.4); Monocytes Absolute Auto 1.6 K/mm3 (0.1-0.6); Monocytes Percent Auto 13.4 % (2.6-8.5); Neutrophils Percent Auto 68.8 % (45.5-73.1); Platelet Count Result 452 k/mm3 (150-375); Red Blood Count 3.26 M/mm3 (4.6-6.20); Red Cell Distribution Width 15.7 % (11.5-14.5); White Blood Count 11.6 K/mm3 (4.5-10.0)
[2024-09-14 06:57] LABS: Albumin Level 2.6 g/dL (3.5-5.1); Anion Gap 5 mmol/L (4-12); Blood Urea Nitrogen 28 mg/dL (9-20); Calcium 8.5 mg/dL (8.4-10.2); Carbon Dioxide 25 mmol/L (22-30); Chloride 105 mmol/L (98-107); Estimated CRCL calculation 22 ml/min; Estimated Glomerular Filt Rate 25; Glucose 125 mg/dL (65-110); Magnesium 1.5 mg/dL (1.6-2.3); Phosphorus 3.7 mg/dL (2.5-4.5); Potassium 3.5 mmol/L (3.4-5.0); Sodium 135 mmol/L (137-145)
[2024-09-14 07:05] LABS: Hypochromasia 1+; Platelet Estimate Increased (Adequate)
[2024-09-14 07:06] LABS: Anisocytosis 1+; Ovalocytes 1+; Schistocytes Rare
[2024-09-14 07:49] LABS: Glucose Point of Care 114 mg/dl (65-105)
[2024-09-14] MEDS: UMECLIDINIUM BROMIDE 62.5 MCG ELLIPTA 1 PUFF INHALATION (08:20)
[2024-09-14] MEDS: IPRATROPIUM 0.5 MG/ALBUTEROL SULFATE 2.5 MG AMPUL.NEB 3 ML INHALATION ×3 (08:20→20:04)
[2024-09-14] MEDS: MIRTAZAPINE 7.5 MG TABLET PO (09:00)
[2024-09-14] MEDS: PANTOPRAZOLE 40 MG TABLET PO (09:00)
[2024-09-14] MEDS: DORZOLAMIDE/TIMOLOL OPHTH SOL 10 ML BOTTLE 1 DROP EACH EYE ×2 (09:00→20:30)
[2024-09-14] MEDS: CEFEPIME 1 GM/NS 50 ML 1 GM/50 ML BAG IVPB ×2 (09:00→20:29)
[2024-09-14] MEDS: ENOXAPARIN 30 MG/0.3 ML SYRINGE SUB-Q (09:30)
[2024-09-14 11:49] LABS: Glucose Point of Care 170 mg/dl (65-105)
--- NOTE | 2024-09-14 12:10 | P.PNIM_ITS ---
Progress Note: A&P Assessment and Plan (1) Febrile illness: Code(s): R50.9 - Fever, unspecified Status: Acute Assessment and Plan: 09/09: Patient presented with fevers, weakness, hypotension -UA was not reflective of UTI -CT Ch/A/P without contrast demonstrating right pleural effusion, slightly dilated esophagus, bilateral renal cyst,. Bilateral fat containing inguinal hernias and small fat containing umbilical hernia. -09/09: BCx NGTD MRSA nasal swab negative. COVID, influenza and RSV PCR negative. Started on cefepime and vancomycin (09/09) but vanco stopped on 09/11. Venous duplex negative for DVT. CXR with new opacities of the right lower lung zone which could represent atelectasis or pneumonia with small right pleural effusion. Repeat BCx 09/12 NGTD CRP 8 -> 27. WBC higher at 12K. But fever curve better. Patient feels better. Continue Cefepime for now. add flagyl for anaerobic coverage 09/14/24. recheck mrsa positive. will add linezolid TTE with no signifciant findings. Hx of aspiration PNA so will have speech therapy evaluate. Consider BERNA to exclude endocarditis but felt unlikely with negative BCx. does not meet's Carnes's criteria. (2) Sepsis: Code(s): A41.9 - Sepsis, unspecified organism Status: Acute Assessment and Plan: Patient was hypotensive in the ER, received 30 cc/kg IV fluids and central line was inserted Levophed started but able to be weaned off Blood pressures stable Continue antibiotics as above (3) Chronic kidney disease, stage 3: Code(s): N18.30 - Chronic kidney disease, stage 3 unspecified Status: Acute Assessment and Plan: Patient with history of CKD (baseline 2.50-3.26) On admission creatinine was 2.37. -patient did diurese well as he was volume overloaded and congested -received albumin -urine output has been adequate Cr stable at 2.4 -continue to monitor renal function, electrolytes and urine output (4) Chronic obstructive pulmonary disease: Code(s): J44.9 - Chronic obstructive pulmonary disease, unspecified Status: Acute Assessment and Plan: No wheezing appreciated. Continue neb treatments. Continue home Spiriva Wean O2 as tolerated. (5) A-fib: Code(s): I48.91 - Unspecified atrial fibrillation Status: Acute Assessment and Plan: History of AFib -on carvedilol at home -will hold for now as patient's BP still soft -heart rate is controlled for now Not on anticoagulation at home. (6) Hypertension: Code(s): I10 - Essential (primary) hypertension Status: Chronic Assessment and Plan: Patient on Coreg, lisinopril and chlorthalidone at home. Continue to hold off on since patient was on pressors briefly and now with soft BP. Resume home meds as BP tolerates. (7) Type 2 diabetes mellitus: Code(s): E11.9 - Type 2 diabetes mellitus without complications Status: Chronic Assessment and Plan: Glucose remains well controlled. Continue AccuCheks covering with sliding scale. Hypoglycemia protocol available as needed. Resume home lantus and aspart when able (8) Renal mass: Code(s): N28.89 - Other specified disorders of kidney and ureter Status: Acute Assessment and Plan: Incidental finding by CT showing a left upper pole cyst measuring 2.9 cm. Exophytic cyst is seen in the right kidney midpole measuring 3 cm. Tiny hypodense lesion seen in the right kidney lower pole most likely hemorrhagic cyst. Tiny mass cannot be excluded. Follow-up advised. Will need outpatient followup (9) Slurred speech: Code(s): R47.81 - Slurred speech Status: Acute Assessment and Plan: notied some slurred speech 09/14/24 will get mri brain neurology consultation Plan DVT prophylaxis: Lovenox Code Status: Full code UIP pattern chronic interstitial lung disease mild Patulous esophagus with reflux esophagitis: likely etiology for aspiration pneumonia. Code Status: Full code Subjective Date/time seen: 09/14/24 12:10 Interval history: he had another spike of fever. He still has some cough. Mild shortness of breath. Discussed with over the phone. Review of Systems Review of Systems: All systems reviewed & are unremarkable except as noted in HPI and below Exam Narrative: Gen - NARD lying semi-recumbent in bed Chest - bronchial BS. no egophony. nml RR CV - irregular with 2/6 systolic heard t/o the precordium Abd - Soft, NT/ND, Positive BS Ext - No pedal edema. Right femoral central line in place. Neuro: slurred speech noted, no focal deficits noted, no facial asymmetry Psych - Nml mood and affect Skin - Warm and dry Objective Data Vital Signs Vital Signs: Vital Signs - 24 hr 09/13/24 14:53 09/13/24 14:53 09/13/24 15:00 Temperature Pulse Rate 72 97 Respiratory Rate 20 20 Blood Pressure Pulse Oximetry 95 Oxygen Delivery Nasal Cannula Oxygen Flow Rate 1 09/13/24 19:06 09/13/24 19:43 09/13/24 19:43 Temperature 99.6 F Pulse Rate 103 H 89 Respiratory Rate 32 H 20 Blood Pressure 142/73 H Pulse Oximetry 95 92 Oxygen Delivery Room Air Oxygen Flow Rate 09/13/24 19:53 09/13/24 20:00 09/14/24 05:13 Temperature Pulse Rate 90 Respiratory Rate 20 Blood Pressure Pulse Oximetry 84 L Oxygen Delivery Room Air Nasal Cannula Oxygen Flow Rate 2 09/14/24 05:16 09/14/24 05:19 09/14/24 06:00 Temperature 101 F H 101.0 F H Pulse Rate 99 Respiratory Rate 32 H Blood Pressure 104/72 Pulse Oximetry 92 92 Oxygen Delivery Nasal Cannula Oxygen Flow Rate 2 09/14/24 08:20 09/14/24 08:20 09/14/24 08:30 Temperature Pulse Rate 86 76 Respiratory Rate 20 20 Blood Pressure Pulse Oximetry 92 Oxygen Delivery Room Air Oxygen Flow Rate Intake/Output Intake/Output: Intake & Output 09/11/24 09/12/24 09/13/24 09/14/24 23:59 23:59 23:59 23:59 Intake Total 1650 980 710 440 Output Total 2100 1950 2000 701 Mpenzkf -[id number] -144 -[id number] 115 Meds/Results Medications: Active Medications Generic Name Dose Route Start Last Admin Trade Name Freq PRN Reason Stop Dose Admin Acetaminophen 650 mg 09/10/24 00:24 09/14/24 05:16 Acetaminophen 325 Mg Tablet PO 650 mg Q4H PRN Administration Mild Pain (1-3) or Fever Albuterol/Ipratropium 3 ml 09/10/24 08:45 09/14/24 08:20 Ipratropium 0.5 Mg/Albuterol Sulfate 2.5 Mg Ampul.Neb 3 Ml INHALATION 3 ml Q6HRT PJ Administration Dextrose 12.5 gm 09/10/24 09:20 Dextrose 50% 25 Gm/50 Ml Syringe IV PUSH PRN PRN Hypoglycemia Protocol Dorzolamide/Timolol 1 drop 09/13/24 09:40 09/13/24 21:50 Dorzolamide/Timolol Ophth Sarah 10 Ml Bottle EACH EYE 1 drop Q12HR PJ Administration Enoxaparin Sodium 30 mg 09/11/24 09:00 09/13/24 09:09 Enoxaparin 30 Mg/0.3 Ml Syringe SUB-Q 30 mg DAILY PJ Administration Glucagon 1 mg 09/10/24 09:20 Glucagon For Inj 1 Mg Vial IM PRN PRN Hypoglycemia Protocol Glucose 15 gm 09/10/24 09:20 Glucose Oral Gel 15 Gm Of Glucse In 37.5 Gm Tube PO PRN PRN Hypoglycemia Protocol Dextrose 1,000 mls @ 100 mls/hr 09/10/24 09:20 Dextrose 5% 1,000 Ml IVPB PRN PRN Hypoglycemia Protocol Cefepime HCl 1 gm in 50 mls @ 100 mls/hr 09/12/24 12:00 09/13/24 22:56 Maxipime 1 Gm/Ns 50 Ml IVPB Infused Q12HR [facility] Infusion Metronidazole 500 mg in 100 mls @ 100 mls/hr 09/14/24 10:00 Flagyl 500 Mg/Iso Soln 100 Ml IVPB Q8H PJ Insulin Aspart 1 - 3 units 09/10/24 21:00 09/13/24 21:47 Insulin Aspart (*Bkc) 100 Units/Ml SUB-Q Not Given HS [facility] Protocol Insulin Aspart 3 - 6 units 09/10/24 12:00 09/13/24 17:09 Insulin Aspart (*Bkc) 100 Units/Ml SUB-Q Not Given TIDWM [facility] Protocol Mirtazapine 7.5 mg 09/13/24 09:50 09/13/24 10:21 Mirtazapine 7.5 Mg Tablet PO 7.5 mg DAILY PJ Administration Ondansetron HCl 4 mg 09/10/24 00:24 09/10/24 13:19 Ondansetron Inj 4 Mg/2 Ml Vial IV PUSH 4 mg Q4H PRN Administration Nausea Pantoprazole Sodium 40 mg 09/11/24 09:00 09/13/24 09:09 Pantoprazole 40 Mg Tablet PO 40 mg QAM PJ Administration Perflutren Lipid Microsphere 0 ml 09/12/24 09:27 Perflutren Lipid Microspheres 1.5 Ml Vial Diluted To 10 Ml Total Volume IV PUSH 09/15/24 09:27 ONCE PRN adequate visualization Protocol Pravastatin Sodium 20 mg 09/10/24 21:00 09/13/24 21:49 Pravastatin Sodium 20 Mg Tablet PO 20 mg HS PJ Administration Sodium Chloride 20 ml 09/11/24 08:00 Central Line Flush IV PUSH PRN PRN after blood draws Umeclidinium [place] 1 puff 09/10/24 09:00 09/14/24 08:20 Umeclidinium [place] 62.5 Mcg Ellipta INHALATION 1 puff DAILY PJ Administration Radiology Results: ITS Impressions Chest/Abdomen/Pelvis CT 09/09/24 21:59 IMPRESSION: CHEST: 1. Right pleural effusion. 2. No other definite acute cardiopulmonary pathology seen. 3. Slightly dilated esophagus which may indicate reflux esophagitis. ABDOMEN/PELVIS: 1. No evidence of appendicitis, diverticulitis or intestinal obstruction. 2. Bilateral renal cysts with small density in the right kidney lower pole. Follow-up advised. 3. Bilateral fat containing inguinal hernias. Small fat-containing umbilical hernia. Chest X-Ray 09/11/24 09:02 IMPRESSION: 1. New opacities at the right lower lung zone which could represent atelectasis or pneumonia. 2. Small right pleural effusion. Venous Doppler Study 09/11/24 10:07 IMPRESSION: 1: No lower extremity deep venous thrombosis. Labs Labs: Laboratory Results - last 24 hr 09/13/24 09/13/24 09/14/24 16:07 20:29 06:03 WBC 11.6 H RBC 3.26 L Hgb 8.3 L Hct 28.3 L MCV 86.8 MCH 25.5 L MCHC 29.3 L RDW 15.7 H Plt Count 452 H MPV 9.5 Immature Gran % (Auto) 0.9 H Neut % (Auto) 68.8 Lymph % (Auto) 14.9 L [place] % (Auto) 13.4 H Eos % (Auto) 1.3 Baso % (Auto) 0.7 Lymph # (Auto) 1.73 [place] # (Auto) 1.6 H Eos # (Auto) 0.2 Baso # (Auto) 0.1 Abs Immat Gran (auto) 0.10 H Absolute Neuts (auto) 8.0 H Absolute Nucleated RBC 0.000 Band Neutrophils % Not Reportable Nucleated RBC % 0.0 Platelet Estimate Increased Hypochromasia 1+ Anisocytosis 1+ Ovalocytes 1+ Schistocytes Rare Sodium 135 L Potassium 3.5 Chloride 105 Carbon Dioxide 25 Anion Gap 5 BUN 28 H Creatinine 2.47 H Estim Creat Clear Calc 22 Estimated GFR 25 L Glucose 125 H POC Capillary Glucose 138 H 127 H Calcium 8.5 Phosphorus 3.7 Magnesium 1.5 L Albumin 2.6 L 09/14/24 09/14/24 07:47 11:46 WBC RBC Hgb Hct MCV MCH MCHC RDW Plt Count MPV Immature Gran % (Auto) Neut % (Auto) Lymph % (Auto) [place] % (Auto) Eos % (Auto) Baso % (Auto) Lymph # (Auto) [place] # (Auto) Eos # (Auto) Baso # (Auto) Abs Immat Gran (auto) Absolute Neuts (auto) Absolute Nucleated RBC Band Neutrophils % Nucleated RBC % Platelet Estimate Hypochromasia Anisocytosis Ovalocytes Schistocytes Sodium Potassium Chloride Carbon Dioxide Anion Gap BUN Creatinine Estim Creat Clear Calc Estimated GFR Glucose POC Capillary Glucose 114 H 170 H Calcium Phosphorus Magnesium Albumin
[2024-09-14] MEDS: metroNIDAZOLE 500 MG/ISO 100ML 500 MG/100 ML BAG 100 MG IVPB ×2 (12:29→18:24)
[2024-09-14 15:06] LABS: MRSA (PCR) DETECTED (NOT DETECTE)
[2024-09-14 15:16] LABS: Alveolar/Arterial O2 Gradient 39.4 mmHg; Base Excess ABG -2.8 mEq/l (+/-2.0); Fractional Inspired Oxygen 21 %; HCO3 ABG 21.7 mEq/l (22.0-26.0); Oxygen Content ABG 12.1 %vol (16.0-22.0); Oxygen Saturation ABG 93.3 % (95.0-100.0); Oxyhemoglobin 91.9 % THb (90.0-100.0); PCO2 ABG 36.5 mmHg (35.0-45.0); PO2 ABG 66.6 mmHg (80.0-100.0); PO2 FiO2 Ratio Arterial Blood 3.17 %; Total Hemoglobin 9.3 g/dL (12.0-18.0); pH ABG 7.393 (7.350-7.450)
[2024-09-14 15:17] LABS: Device ROOM AIR; Modified Allen's Test Pass; Site Drawn LEFT RADIAL
--- NOTE | 2024-09-14 15:33 | P.CONNEU_ITS ---
Assessment and Plan Assessment and plan (1) Left-sided cerebrovascular accident (CVA): Code(s): I63.9 - Cerebral infarction, unspecified Status: Acute Assessment and Plan: The patient has mild dysarthria and mild right supranuclear facial weakness. All of order a CT scan of brain and suggest antiplatelets and statins. You may discuss with Cardiology regarding anticoagulation for paroxysmal atrial fibrillation. An MRI of the brain would be desirable but I believe that he has a penile implant which could greater MRI. Carotid Doppler study also recommended. An echocardiogram was performed on 08/30/2024 which shows moderate aortic stenosis. Ejection fraction was greater than 70%. A limited echocardiogram was also repeated on 09/13/2024 which shows findings were similar to the previous study. (2) Paroxysmal atrial fibrillation: Code(s): I48.0 - Paroxysmal atrial fibrillation Status: Acute (3) Aortic stenosis: Code(s): I35.0 - Nonrheumatic aortic (valve) stenosis Status: Acute (4) Hypertension: Code(s): I10 - Essential (primary) hypertension Status: Chronic (5) T2DM (type 2 diabetes mellitus): Code(s): E11.9 - Type 2 diabetes mellitus without complications Status: Acute (6) Chronic kidney disease, stage 3: Code(s): N18.30 - Chronic kidney disease, stage 3 unspecified Status: Acute (7) Renal mass: Code(s): N28.89 - Other specified disorders of kidney and ureter Status: Acute (8) Prostate cancer metastatic to bone: Code(s): C61 - Malignant neoplasm of prostate; C79.51 - Secondary malignant neoplasm of bone Status: Acute (9) Febrile illness: Code(s): R50.9 - Fever, unspecified Status: Acute Plan As discussed above. We can keep the patient on atorvastatin 40 mg a day and aspirin 81 mg daily until further evaluations. Consult date: 09/14/24 HPI: David Wei is a 83 year old male With history of atrial fibrillation, chronic kidney disease, chronic obstructive pulmonary disease, diabetes mellitus, prostate cancer with bone metastasis has complaints of slurring of speech for last 1 week. No difficulty swallowing. He can understand given commands and express himself fairly well. he denies any weakness in upper lower limbs. No history of prior stroke. Patient came into the hospital with fever and is suspected of a pneumonia. Review of Systems 2 Review of Systems: The patient did manage to walk for the 1st time since hospitalization with have a physical therapy briefly today. All systems reviewed & are unremarkable except as noted in HPI and below PMFSH Past Medical History Medical History (Updated 09/14/24 @ 15:39 by Nixon Rich MD) Left-sided cerebrovascular accident (CVA) Esophageal ulcer Chronic kidney disease, stage 3 Paroxysmal atrial fibrillation Gastroesophageal reflux disease 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 He smokes 1-2 cigarettes per day most days. He denies marijuana use or other drug use. He drinks 1-2 alcoholic drinks per week. He has cats. Code status -full Surrogate decision maker - Smoking packs per day: 1 Smoking cigarettes per day: 20.0 Years smoked: 30 Smoking pack-years: 30.00 Smoking status: Former smoker Tobacco type: cigarettes Second hand tobacco smoke exposure: Yes Smoking end date: 08/11/03 Additional smoking assessment comments: marijuana daily and regular cigarettes smokes intermittently Alcohol intake: current Drinks per week: 2 Substance use: current Substance use type: marijuana Other substance usage details: smoke once a day Last use: 06/10/2024 Do You Feel Safe in your Home?: Yes Lack of Transportation: No Lack of Food: Never True Current Housing: I Have Housing Concerned About Future Housing: No Difficulty Paying Gas/Electric Bills: No Difficulty Paying for Meds: No Currently Unemployed: No Education: Master's Degree or Higher Difficulty w/ Childcare or Family Care: No Spiritual care concerns: No Meds Home Medications and Allergies Home Medications ?Medication ?Instructions ?Recorded ?Confirmed ?Type insulin glargine 100 unit/mL (3 20 unit subcut QHS 06/19/22 09/10/24 History mL) subcutaneous pen (Lantus Solostar U-100 Insulin) pantoprazole 40 mg tablet,delayed 40 mg PO DAILY 06/19/22 09/10/24 History release albuterol sulfate 90 mcg/actuation 2 puff inhalation QID PRN 06/21/22 09/10/24 Rx aerosol inhaler shortness of breath or wheezing #8.5 grams abiraterone 250 mg tablet 1,000 mg PO HS 03/26/24 09/10/24 History carvedilol 12.5 mg tablet 12.5 mg PO Q12H 03/26/24 09/10/24 History chlorthalidone 25 mg tablet 25 mg PO DAILY 03/26/24 09/10/24 History dorzolamide 22.3 mg-timolol 6.8 1 drp EACH EYE Q12H 03/26/24 09/10/24 History mg/mL eye drops insulin aspart U-100 100 unit/mL 1 sliding scale dose subcut TID 03/26/24 09/10/24 History (3 mL) subcutaneous pen (Novolog FlexPen U-100 Insulin aspart) lisinopril 20 mg tablet 40 mg PO DAILY 03/26/24 09/10/24 History pravastatin 20 mg tablet 20 mg PO HS 03/26/24 09/10/24 History sitagliptin phosphate 25 mg tablet 25 mg PO DAILY 03/26/24 09/10/24 History (Januvia) ondansetron 4 mg disintegrating 4 mg PO Q8H #14 tabs 08/28/24 09/10/24 Rx tablet tiotropium bromide 1.25 2 puff inhalation DAILY 30 days #4 09/05/24 09/10/24 Rx mcg/actuation mist for inhalation grams (Spiriva Respimat) mirtazapine 7.5 mg tablet 7.5 mg PO DAILY 09/10/24 09/10/24 History Allergies Allergy/AdvReac Type Severity Reaction Status Date / Time No Known Drug Allergies Allergy Unknown Other Verified 08/29/24 17:26 Vital Signs Vital Signs - 24 hr 09/13/24 19:06 09/13/24 19:43 09/13/24 19:43 Temperature 99.6 F Pulse Rate 103 H 89 Respiratory Rate 32 H 20 Blood Pressure 142/73 H Pulse Oximetry 95 92 Oxygen Delivery Room Air Oxygen Flow Rate 09/13/24 19:53 09/13/24 20:00 09/14/24 05:13 Temperature Pulse Rate 90 Respiratory Rate 20 Blood Pressure Pulse Oximetry 84 L Oxygen Delivery Room Air Nasal Cannula Oxygen Flow Rate 2 09/14/24 05:16 09/14/24 05:19 09/14/24 06:00 Temperature 101 F H 101.0 F H Pulse Rate 99 Respiratory Rate 32 H Blood Pressure 104/72 Pulse Oximetry 92 92 Oxygen Delivery Nasal Cannula Oxygen Flow Rate 2 09/14/24 08:20 09/14/24 08:20 09/14/24 08:30 Temperature Pulse Rate 86 76 Respiratory Rate 20 20 Blood Pressure Pulse Oximetry 92 Oxygen Delivery Room Air Oxygen Flow Rate 09/14/24 09:00 09/14/24 09:00 09/14/24 12:05 Temperature 97.0 F L Pulse Rate Respiratory Rate Blood Pressure Pulse Oximetry Oxygen Delivery Room Air Room Air Oxygen Flow Rate 09/14/24 13:01 09/14/24 14:00 09/14/24 14:58 Temperature 97 F L 98.6 F Pulse Rate 87 Respiratory Rate 20 Blood Pressure 108/51 L Pulse Oximetry 97 94 Oxygen Delivery Room Air Oxygen Flow Rate 09/14/24 14:58 Temperature Pulse Rate 77 Respiratory Rate 20 Blood Pressure Pulse Oximetry Oxygen Delivery Oxygen Flow Rate Exam 2 Narrative: Fully conscious alert oriented to self time place and person. No aphasia however patient has mild dysarthria. Examination of her head and neck shows no evidence of external trauma. No carotid bruit. Examination cardiovascular system reveals a systolic murmur over precordium. Cranial nerves on individual testing show mild right facial weakness. Visual abebe by confrontation are normal. Tongue was midline. Palate also moves symmetrically. Facial sensation is intact and comparable on both sides. Deep tendon reflexes did not show any asymmetry. Normal strength in both upper and lower limbs. Involuntary movements are seen. Results Labs 09/14/24 06:03 09/14/24 06:03 Labs: Short CBC 09/14/24 Range/Units 06:03 WBC 11.6 H (4.5-10.0) K/mm3 Hgb 8.3 L (14.0-18.0) g/dL Hct 28.3 L (42.0-52.0) % Plt Count 452 H (150-375) k/mm3 BMP 09/14/24 06:03 Sodium 135 L Potassium 3.5 Chloride 105 Carbon Dioxide 25 BUN 28 H Creatinine 2.47 H Glucose 125 H Calcium 8.5 Liver Function 09/14/24 Range/Units 06:03 Albumin 2.6 L (3.5-5.1) g/dL
[2024-09-14] MEDS: ASPIRIN 81 MG CHEWABLE TABLET 324 MG PO (15:54)
[2024-09-14] MEDS: MAGNESIUM SULF 1 GM/D5W 100 ML 1 GM/100 ML BAG IVPB (16:57)
[2024-09-14 17:20] LABS: Glucose Point of Care 186 mg/dl (65-105)
[2024-09-14 18:35] LABS: Cholesterol 60 mg/dL (0-200); HDL Direct 12 mg/dL; Triglycerides 141 mg/dL (<150)
[2024-09-14 20:26] LABS: Glucose Point of Care 219 mg/dl (65-105)
[2024-09-14] MEDS: LINEZOLID 600 MG/300 ML 600 MG/300 ML SOLN 300 MG IVPB (21:26)
[2024-09-14] MEDS: INSULIN ASPART (*BKC) 100 UNITS/ML SUB-Q (21:27)
[2024-09-14 23:39] LABS: LDL Cholesterol Direct < 30 mg/dL
[2024-09-15] VITALS (11 sets, daily range): BP systolic 96–100; BP diastolic 50–62; PULSE 16–109; RESP 16–92; TEMP 36.1–37.2; O2SAT 90–100
[2024-09-15] MEDS: IPRATROPIUM 0.5 MG/ALBUTEROL SULFATE 2.5 MG AMPUL.NEB 3 ML INHALATION ×3 (01:56→19:50)
[2024-09-15] MEDS: metroNIDAZOLE 500 MG/ISO 100ML 500 MG/100 ML BAG 100 MG IVPB ×3 (02:24→17:50)
[2024-09-15 07:04] LABS: Basophils Absolute Auto 0.1 K/mm3 (0.0-0.1); Basophils Percent Auto 0.5 % (0.2-1.2); Eosinophils Absolute Auto 0.2 K/mm3 (0-0.3); Eosinophils Percent Auto 1.5 % (0-4.4); Hematocrit 30.3 % (42.0-52.0); Immature Granulocyte Absolute 0.09 K/mm3 (0.00-0.031); Immature Granulocyte Percent A 0.6 % (0-0.5); Lymphocytes Absolute Auto 1.81 K/mm3 (0.9-3.2); Lymphocytes Percent Auto 11.7 % (18.3-44.2); Mean Corpuscular HGB Conc 29.7 g/dl (32-36); Mean Corpuscular Hemoglobin 25.3 pg (26-34); Mean Corpuscular Volume 85.1 fl (80-100); Mean Platelet Volume 9.7 fl (7.4-10.4); Monocytes Absolute Auto 1.4 K/mm3 (0.1-0.6); Neutrophils Absolute Auto 11.9 K/mm3 (1.3-6.7); Neutrophils Percent Auto 76.7 % (45.5-73.1); Platelet Count Result 505 k/mm3 (150-375); Red Blood Count 3.56 M/mm3 (4.6-6.20); White Blood Count 15.5 K/mm3 (4.5-10.0)
[2024-09-15 07:18] LABS: Alanine Aminotransferase 13 U/L (6-50); Albumin Level 2.9 g/dL (3.5-5.1); Alkaline Phosphatase 112 U/L (38-126); Anion Gap 9 mmol/L (4-12); Aspartate Amino Transferase 24 U/L (17-59); Bilirubin,Total 0.3 mg/dL (0.2-1.3); Blood Urea Nitrogen 36 mg/dL (9-20); Calcium 8.9 mg/dL (8.4-10.2); Carbon Dioxide 23 mmol/L (22-30); Chloride 103 mmol/L (98-107); Estimated CRCL calculation 20 ml/min; Estimated Glomerular Filt Rate 23; Glucose 182 mg/dL (65-110); Magnesium 1.6 mg/dL (1.6-2.3); Potassium 3.5 mmol/L (3.4-5.0); Sodium 135 mmol/L (137-145); Total Protein 5.4 g/dL (6.3-8.2)
[2024-09-15 08:00] LABS: Crenated RBC 2+; Hypochromasia 1+; Platelet Estimate Increased (Adequate); Schistocytes None Seen
[2024-09-15 08:08] LABS: Glucose Point of Care 171 mg/dl (65-105)
[2024-09-15] MEDS: UMECLIDINIUM BROMIDE 62.5 MCG ELLIPTA 1 PUFF INHALATION (08:35)
[2024-09-15] MEDS: ASPIRIN 81 MG ENTERIC TABLET PO (09:06)
[2024-09-15] MEDS: PANTOPRAZOLE 40 MG TABLET PO (09:06)
[2024-09-15] MEDS: LINEZOLID 600 MG/300 ML 600 MG/300 ML SOLN 300 MG IVPB ×2 (09:06→20:55)
[2024-09-15] MEDS: ATORVASTATIN 40 MG TABLET PO (09:06)
[2024-09-15] MEDS: DORZOLAMIDE/TIMOLOL OPHTH SOL 10 ML BOTTLE 1 DROP EACH EYE ×2 (09:07→20:56)
[2024-09-15] MEDS: CEFEPIME 1 GM/NS 50 ML 1 GM/50 ML BAG IVPB ×2 (09:07→20:22)
[2024-09-15] MEDS: ENOXAPARIN 30 MG/0.3 ML SYRINGE SUB-Q (09:09)
[2024-09-15 11:11] LABS: Glucose Point of Care 163 mg/dl (65-105)
--- NOTE | 2024-09-15 13:44 | PCOTNOTE ---
Per RN, Patient unavailable, Patient going down for an MRI. Patient's concerned and awaiting test results
--- NOTE | 2024-09-15 13:54 | PCPTNOTE ---
Attempted to see patient for PT, however patient was leaving room with X-ray tech assistance for testing.
[2024-09-15 16:08] LABS: Glucose Point of Care 186 mg/dl (65-105)
--- NOTE | 2024-09-15 16:57 | P.PNIM_ITS ---
Progress Note: A&P Assessment and Plan (1) Febrile illness: Code(s): R50.9 - Fever, unspecified Status: Acute Assessment and Plan: 09/09: Patient presented with fevers, weakness, hypotension -UA was not reflective of UTI -CT Ch/A/P without contrast demonstrating right pleural effusion, slightly dilated esophagus, bilateral renal cyst,. Bilateral fat containing inguinal hernias and small fat containing umbilical hernia. -09/09: BCx NGTD MRSA nasal swab negative. COVID, influenza and RSV PCR negative. Started on cefepime and vancomycin (09/09) but vanco stopped on 09/11. Venous duplex negative for DVT. CXR with new opacities of the right lower lung zone which could represent atelectasis or pneumonia with small right pleural effusion. Repeat BCx 09/12 NGTD CRP 8 -> 27. WBC higher at 12K. But fever curve better. Patient feels better. Continue Cefepime for now. add flagyl for anaerobic coverage 09/14/24. recheck mrsa positive. will add linezolid TTE with no signifciant findings. Hx of aspiration PNA so will have speech therapy evaluate. Consider BERNA to exclude endocarditis but felt unlikely with negative BCx. does not meet's Carnes's criteria. (2) Sepsis: Code(s): A41.9 - Sepsis, unspecified organism Status: Acute Assessment and Plan: Patient was hypotensive in the ER, received 30 cc/kg IV fluids and central line was inserted Levophed started but able to be weaned off Blood pressures stable Continue antibiotics as above (3) Chronic kidney disease, stage 3: Code(s): N18.30 - Chronic kidney disease, stage 3 unspecified Status: Acute Assessment and Plan: Patient with history of CKD (baseline 2.50-3.26) On admission creatinine was 2.37. -patient did diurese well as he was volume overloaded and congested -received albumin -urine output has been adequate Cr stable at 2.4 -continue to monitor renal function, electrolytes and urine output (4) Chronic obstructive pulmonary disease: Code(s): J44.9 - Chronic obstructive pulmonary disease, unspecified Status: Acute Assessment and Plan: No wheezing appreciated. Continue neb treatments. Continue home Spiriva Wean O2 as tolerated. (5) A-fib: Code(s): I48.91 - Unspecified atrial fibrillation Status: Acute Assessment and Plan: History of AFib -on carvedilol at home -will hold for now as patient's BP still soft -heart rate is controlled for now Not on anticoagulation at home due to history of bleeding ulcer. His last EGD 3-4 years ago (6) Hypertension: Code(s): I10 - Essential (primary) hypertension Status: Chronic Assessment and Plan: Patient on Coreg, lisinopril and chlorthalidone at home. Continue to hold off on since patient was on pressors briefly and now with soft BP. Resume home meds as BP tolerates. (7) Type 2 diabetes mellitus: Code(s): E11.9 - Type 2 diabetes mellitus without complications Status: Chronic Assessment and Plan: Glucose remains well controlled. Continue AccuCheks covering with sliding scale. Hypoglycemia protocol available as needed. Resume home lantus and aspart when able (8) Renal mass: Code(s): N28.89 - Other specified disorders of kidney and ureter Status: Acute Assessment and Plan: Incidental finding by CT showing a left upper pole cyst measuring 2.9 cm. Exophytic cyst is seen in the right kidney midpole measuring 3 cm. Tiny hypodense lesion seen in the right kidney lower pole most likely hemorrhagic cyst. Tiny mass cannot be excluded. Follow-up advised. Will need outpatient followup (9) Slurred speech: Code(s): R47.81 - Slurred speech Status: Acute Assessment and Plan: notied some slurred speech 09/14/24 will get mri brain neurology consultation Plan DVT prophylaxis: Lovenox Code Status: Full code UIP pattern chronic interstitial lung disease mild Patulous esophagus with reflux esophagitis: likely etiology for aspiration pneumonia. Code Status: Full code Subjective Date/time seen: 09/15/24 16:57 Interval history: MRI pending due to pending records for penile implant details. As per his and relative patient is not on anticoagulant due to bleeding ulcer. She reports his last EGD before [facility]. She reports her criminal justice department chair never restarted his anticoagulation Review of Systems Review of Systems: All systems reviewed & are unremarkable except as noted in HPI and below Exam Narrative: Gen - NARD lying semi-recumbent in bed Chest - bronchial BS. no egophony. nml RR CV - irregular with 2/6 systolic heard t/o the precordium Abd - Soft, NT/ND, Positive BS Ext - No pedal edema. Right femoral central line in place. Neuro: slurred speech noted, no focal deficits noted, no facial asymmetry Psych - Nml mood and affect Skin - Warm and dry Const: Other: Lethargic, A&O x3, warm to touch HENMT: Mouth: Yes dry mucous membranes Eyes: Pupils: Equal, round and reactive pupils present Neck: Neck: supple Resp: Effort & Inspection: normal respiratory effort Auscultation: clear to auscultation bilaterally Cardio: Rate: regular rate Rhythm: regular rhythm Heart sounds: Murmur heart sound present (Systolic murmur) GI: Inspection: non-distended : General: Yes bladder normal to palpation Neuro: Cranial nerves: Yes Equal, round and reactive pupils present Motor exam (neuro): 5/5 motor strength present throughout Sensory Exam: normal sensation Extrem: General: no edema Objective Data Vital Signs Vital Signs: Vital Signs - 24 hr 09/14/24 20:00 09/14/24 20:05 09/14/24 20:07 Temperature Pulse Rate 95 Respiratory Rate 20 Blood Pressure Pulse Oximetry 93 Oxygen Delivery Room Air Room Air Fraction of Inspired Oxygen 09/14/24 20:13 09/14/24 22:00 09/15/24 01:58 Temperature 97.9 F Pulse Rate 91 97 90 Respiratory Rate 20 19 20 Blood Pressure 107/50 L Pulse Oximetry 100 Oxygen Delivery Fraction of Inspired Oxygen 09/15/24 02:04 09/15/24 05:15 09/15/24 08:00 Temperature 98.9 F Pulse Rate 90 16 L 109 H Respiratory Rate 20 92 H 20 Blood Pressure 100/62 Pulse Oximetry 100 91 Oxygen Delivery Room Air Fraction of Inspired Oxygen 21 09/15/24 08:40 09/15/24 08:40 09/15/24 09:02 Temperature Pulse Rate 106 H 109 H Respiratory Rate 20 Blood Pressure Pulse Oximetry 91 Oxygen Delivery Room Air Fraction of Inspired Oxygen 09/15/24 14:00 Temperature 97.0 F L Pulse Rate 98 Respiratory Rate 20 Blood Pressure 98/54 L Pulse Oximetry 90 Oxygen Delivery Fraction of Inspired Oxygen Intake/Output Intake/Output: Intake & Output 09/12/24 09/13/24 09/14/24 09/15/24 23:59 23:59 23:59 23:59 Intake Total 150 066 3169 338 Output Total 0925 1999 077 790 Balance -504 -0929 6954 -499 Meds/Results Medications: Active Medications Generic Name Dose Route Start Last Admin Trade Name Josefa PRN Reason Stop Dose Admin Acetaminophen 650 mg 09/10/24 00:24 09/14/24 05:16 Acetaminophen 325 Mg Tablet PO 650 mg Q4H PRN Administration Mild Pain (1-3) or Fever Albuterol/Ipratropium 3 ml 09/10/24 08:45 09/15/24 13:53 Ipratropium 0.5 Mg/Albuterol Sulfate 2.5 Mg Ampul.Neb 3 Ml INHALATION Not Given Q6HRT PJ Aspirin 81 mg 09/15/24 09:00 09/15/24 09:06 Aspirin 81 Mg Enteric Tablet PO 81 mg QAM PJ Administration Atorvastatin Calcium 40 mg 09/15/24 09:00 09/15/24 09:06 Atorvastatin 40 Mg Tablet PO 40 mg DAILY PJ Administration Dextrose 12.5 gm 09/10/24 09:20 Dextrose 50% 25 Gm/50 Ml Syringe IV PUSH PRN PRN Hypoglycemia Protocol Dorzolamide/Timolol 1 drop 09/13/24 09:40 09/15/24 09:07 Dorzolamide/Timolol Ophth Sarah 10 Ml Bottle EACH EYE 1 drop Q12HR PJ Administration Enoxaparin Sodium 30 mg 09/11/24 09:00 09/15/24 09:09 Enoxaparin 30 Mg/0.3 Ml Syringe SUB-Q 30 mg DAILY PJ Administration Glucagon 1 mg 09/10/24 09:20 Glucagon For Inj 1 Mg Vial IM PRN PRN Hypoglycemia Protocol Glucose 15 gm 09/10/24 09:20 Glucose Oral Gel 15 Gm Of Glucse In 37.5 Gm Tube PO PRN PRN Hypoglycemia Protocol Dextrose 1,000 mls @ 100 mls/hr 09/10/24 09:20 Dextrose 5% 1,000 Ml IVPB PRN PRN Hypoglycemia Protocol Cefepime HCl 1 gm in 50 mls @ 100 mls/hr 09/12/24 12:00 09/15/24 09:07 Maxipime 1 Gm/Ns 50 Ml IVPB 100 mls/hr Q12HR PJ Administration Metronidazole 500 mg in 100 mls @ 100 mls/hr 09/14/24 10:00 09/15/24 11:25 Flagyl 500 Mg/Iso Soln 100 Ml IVPB 100 mls/hr Q8H PJ Administration Linezolid 600 mg in 300 mls @ 300 mls/hr 09/14/24 21:00 09/15/24 09:06 Zyvox IVPB 300 mls/hr Q12HR PJ Administration Insulin Aspart 1 - 3 units 09/10/24 21:00 09/14/24 21:27 Insulin Aspart (*Bkc) 100 Units/Ml SUB-Q 1 units HS PJ Administration Protocol Insulin Aspart 3 - 6 units 09/10/24 12:00 09/15/24 16:15 Insulin Aspart (*Bkc) 100 Units/Ml SUB-Q Not Given TIDWM [facility] Protocol Mirtazapine 7.5 mg 09/13/24 09:50 09/14/24 09:00 Mirtazapine 7.5 Mg Tablet PO 7.5 mg DAILY PJ Administration Ondansetron HCl 4 mg 09/10/24 00:24 09/10/24 13:19 Ondansetron Inj 4 Mg/2 Ml Vial IV PUSH 4 mg Q4H PRN Administration Nausea Pantoprazole Sodium 40 mg 09/11/24 09:00 09/15/24 09:06 Pantoprazole 40 Mg Tablet PO 40 mg QAM PJ Administration Sodium Chloride 20 ml 09/11/24 08:00 Central Line Flush IV PUSH PRN PRN after blood draws Umeclidinium [place] 1 puff 09/10/24 09:00 09/15/24 08:35 Umeclidinium [place] 62.5 Mcg Ellipta INHALATION 1 puff DAILY PJ Administration Radiology Results: ITS Impressions Chest/Abdomen/Pelvis CT 09/09/24 21:59 IMPRESSION: CHEST: 1. Right pleural effusion. 2. No other definite acute cardiopulmonary pathology seen. 3. Slightly dilated esophagus which may indicate reflux esophagitis. ABDOMEN/PELVIS: 1. No evidence of appendicitis, diverticulitis or intestinal obstruction. 2. Bilateral renal cysts with small density in the right kidney lower pole. Follow-up advised. 3. Bilateral fat containing inguinal hernias. Small fat-containing umbilical hernia. Chest X-Ray 09/11/24 09:02 IMPRESSION: 1. New opacities at the right lower lung zone which could represent atelectasis or pneumonia. 2. Small right pleural effusion. Venous Doppler Study 09/11/24 10:07 IMPRESSION: 1: No lower extremity deep venous thrombosis. Head CT 09/14/24 16:52 IMPRESSION: No acute intracranial findings. Chest CT 09/15/24 05:40 Impression: [id number] bilateral pleural effusions with probable minimal interstitial edema and minimal bibasilar atelectatic change. Carotid Doppler Study 09/15/24 05:43 Impression: Mildly elevated velocity in the right internal carotid artery suggests moderate (50-69%) stenosis, though noted significant plaque clearly evident. Antegrade flow in the bilateral vertebral arteries. Note: The methodology used is an indirect measurement validated against a direct method (such as the NASCET criteria) that compares diameters at the stenosis to the distal ICA. Brain MRI 09/15/24 15:43 IMPRESSION: 1. 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 No acute intracranial process. 2. Age-related changes including mild diffuse volume loss and mild scattered nonspecific white matter T2 hyperintensity consistent with chronic small vessel ischemic disease. Labs Labs: Laboratory Results - last 24 hr 09/14/24 09/14/24 09/14/24 06:00 17:17 20:11 WBC RBC Hgb Hct MCV MCH MCHC RDW Plt Count MPV Immature Gran % (Auto) Neut % (Auto) Lymph % (Auto) Sampson % (Auto) Eos % (Auto) Baso % (Auto) Lymph # (Auto) Sampson # (Auto) Eos # (Auto) Baso # (Auto) Abs Immat Gran (auto) Absolute Neuts (auto) Absolute Nucleated RBC Band Neutrophils % Nucleated RBC % Platelet Estimate Hypochromasia Crenated Cell Schistocytes Sodium Potassium Chloride Carbon Dioxide Anion Gap BUN Creatinine Estim Creat Clear Calc Estimated GFR Glucose POC Capillary Glucose 186 H 219 H Calcium Magnesium Total Bilirubin AST ALT Alkaline Phosphatase Total Protein Albumin Triglycerides 141 Cholesterol 60 LDL Cholesterol Direct < 30 HDL Direct 12 09/15/24 09/15/24 09/15/24 06:35 08:06 11:08 WBC 15.5 H RBC 3.56 L Hgb 9.0 L Hct 30.3 L MCV 85.1 MCH 25.3 L MCHC 29.7 L RDW 16.0 H Plt Count 505 H MPV 9.7 Immature Gran % (Auto) 0.6 H Neut % (Auto) 76.7 H Lymph % (Auto) 11.7 L Sampson % (Auto) 9.0 H Eos % (Auto) 1.5 Baso % (Auto) 0.5 Lymph # (Auto) 1.81 Sampson # (Auto) 1.4 H Eos # (Auto) 0.2 Baso # (Auto) 0.1 Abs Immat Gran (auto) 0.09 H Absolute Neuts (auto) 11.9 H Absolute Nucleated RBC 0.000 Band Neutrophils % Not Reportable Nucleated RBC % 0.0 Platelet Estimate Increased Hypochromasia 1+ Crenated Cell 2+ Schistocytes None seen Sodium 135 L Potassium 3.5 Chloride 103 Carbon Dioxide 23 Anion Gap 9 BUN 36 H Creatinine 2.71 H Estim Creat Clear Calc 20 Estimated GFR 23 L Glucose 182 H POC Capillary Glucose 171 H 163 H Calcium 8.9 Magnesium 1.6 Total Bilirubin 0.3 AST 24 ALT 13 Alkaline Phosphatase 112 Total Protein 5.4 L Albumin 2.9 L Triglycerides Cholesterol LDL Cholesterol Direct HDL Direct 09/15/24 16:05 WBC RBC Hgb Hct MCV MCH MCHC RDW Plt Count MPV Immature Gran % (Auto) Neut % (Auto) Lymph % (Auto) Sampson % (Auto) Eos % (Auto) Baso % (Auto) Lymph # (Auto) Sampson # (Auto) Eos # (Auto) Baso # (Auto) Abs Immat Gran (auto) Absolute Neuts (auto) Absolute Nucleated RBC Band Neutrophils % Nucleated RBC % Platelet Estimate Hypochromasia Crenated Cell Schistocytes Sodium Potassium Chloride Carbon Dioxide Anion Gap BUN Creatinine Estim Creat Clear Calc Estimated GFR Glucose POC Capillary Glucose 186 H Calcium Magnesium Total Bilirubin AST ALT Alkaline Phosphatase Total Protein Albumin Triglycerides Cholesterol LDL Cholesterol Direct HDL Direct Quality VTE Prophylaxis VTE prophylaxis: pharmacologic ordered Hospitalist MIPS Advance Care Plan I have confirmed that the patient's Advanced Care Plan is present, code status is documented, or surrogate decision maker is listed in patient medical record.: Yes Medication Reconciliation I have utilized all available resources to obtain, update and review the patients current medications (includes all prescriptions, OTC, herbals, cannabis, and nutritional supplements).: Yes
[2024-09-15] MEDS: INSULIN ASPART (*BKC) 100 UNITS/ML SUB-Q (21:00)
[2024-09-15 21:11] LABS: Glucose Point of Care 206 mg/dl (65-105)
[2024-09-16] VITALS (12 sets, daily range): BP systolic 108–136; BP diastolic 47–88; PULSE 69–110; RESP 16–22; TEMP 36.1–37.5; O2SAT 92–100
[2024-09-16] MEDS: IPRATROPIUM 0.5 MG/ALBUTEROL SULFATE 2.5 MG AMPUL.NEB 3 ML INHALATION ×4 (01:20→21:10)
[2024-09-16] MEDS: metroNIDAZOLE 500 MG/ISO 100ML 500 MG/100 ML BAG 100 MG IVPB ×3 (01:44→17:02)
[2024-09-16] MEDS: UMECLIDINIUM BROMIDE 62.5 MCG ELLIPTA 1 PUFF INHALATION (07:39)
--- NOTE | 2024-09-16 08:09 | P.PNIM_ITS ---
Progress Note: A&P Assessment and Plan (1) Febrile illness: Code(s): R50.9 - Fever, unspecified Status: Acute Assessment and Plan: 09/09: Patient presented with fevers, weakness, hypotension -UA was not reflective of UTI -CT Ch/A/P without contrast demonstrating right pleural effusion, slightly dilated esophagus, bilateral renal cyst,. Bilateral fat containing inguinal hernias and small fat containing umbilical hernia. -09/09: BCx NGTD MRSA nasal swab negative. COVID, influenza and RSV PCR negative. Started on cefepime and vancomycin (09/09) but vanco stopped on 09/11. Venous duplex negative for DVT. CXR with new opacities of the right lower lung zone which could represent atelectasis or pneumonia with small right pleural effusion. Repeat BCx 09/12 NGTD CRP 8 -> 27. WBC higher at 12K. But fever curve better. Patient feels better. Continue Cefepime for now. add flagyl for anaerobic coverage 09/14/24. recheck mrsa positive. will add linezolid TTE with no signifciant findings. Hx of aspiration PNA so will have speech therapy evaluate. Consider BERNA to exclude endocarditis but felt unlikely with negative BCx. does not meet's Carnes's criteria. (2) Sepsis: Code(s): A41.9 - Sepsis, unspecified organism Status: Acute Assessment and Plan: Patient was hypotensive in the ER, received 30 cc/kg IV fluids and central line was inserted Levophed started but able to be weaned off Blood pressures stable Continue antibiotics as above (3) Chronic kidney disease, stage 3: Code(s): N18.30 - Chronic kidney disease, stage 3 unspecified Status: Acute Assessment and Plan: Patient with history of CKD (baseline 2.50-3.26) On admission creatinine was 2.37. -patient did diurese well as he was volume overloaded and congested -received albumin -urine output has been adequate Cr stable at 2.4 -continue to monitor renal function, electrolytes and urine output (4) Chronic obstructive pulmonary disease: Code(s): J44.9 - Chronic obstructive pulmonary disease, unspecified Status: Acute Assessment and Plan: No wheezing appreciated. Continue neb treatments. Continue home Spiriva Wean O2 as tolerated. (5) A-fib: Code(s): I48.91 - Unspecified atrial fibrillation Status: Acute Assessment and Plan: History of AFib -on carvedilol at home -will hold for now as patient's BP still soft -heart rate is controlled for now Not on anticoagulation at home due to history of bleeding gastric ulcer. His last EGD 3-4 years ago (6) Hypertension: Code(s): I10 - Essential (primary) hypertension Status: Chronic Assessment and Plan: Patient on Coreg, lisinopril and chlorthalidone at home. Continue to hold off on since patient was on pressors briefly and now with soft BP. Resume home meds as BP tolerates. (7) Type 2 diabetes mellitus: Code(s): E11.9 - Type 2 diabetes mellitus without complications Status: Chronic Assessment and Plan: Glucose remains well controlled. Continue AccuCheks covering with sliding scale. Hypoglycemia protocol available as needed. Resume home lantus and aspart when able (8) Renal mass: Code(s): N28.89 - Other specified disorders of kidney and ureter Status: Acute Assessment and Plan: Incidental finding by CT showing a left upper pole cyst measuring 2.9 cm. Exophytic cyst is seen in the right kidney midpole measuring 3 cm. Tiny hypodense lesion seen in the right kidney lower pole most likely hemorrhagic cyst. Tiny mass cannot be excluded. Follow-up advised. Will need outpatient followup (9) Slurred speech: Code(s): R47.81 - Slurred speech Status: Acute Assessment and Plan: Noticed some slurred speech 09/14/24 Brain MRI:1. 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 No acute intracranial process. 2. Age-related changes including mild diffuse volume loss and mild scattered nonspecific white matter T2 hyperintensity consistent with chronic small vessel ischemic disease. Echocardiogram was performed on 08/30/2024 which shows moderate aortic stenosis Carotid Doppler:Mildly elevated velocity in the right internal carotid artery suggests moderate (50-69%) stenosis, though noted significant plaque clearly evident. Antegrade flow in the bilateral vertebral arteries. Following Neurology recommendation Plan DVT prophylaxis: Lovenox Code Status: Full code UIP pattern chronic interstitial lung disease mild Patulous esophagus with reflux esophagitis: likely etiology for aspiration pneumonia. Code Status: Full code Subjective Date/time seen: 09/16/24 08:09 Interval history: Patient underwent brain MRI shows No acute changes. Patient underwent MBS which shows patient tolerated regular consistency oral feeding in the upright position. Patient underwent chest/abdominal CT which shows a nice changes small bilateral posterior layering pleural effusions with dependent atelectasis in both lungs. No pulmonary edema or pneumonia in the area to portion of the lungs. Will advise aggressive incentive spirometry and out of bed. Pending re-evaluation from Neurology Review of Systems Review of Systems: All systems reviewed & are unremarkable except as noted in HPI and below Exam Narrative: Gen - NARD lying semi-recumbent in bed Chest - bronchial BS. no egophony. nml RR CV - irregular with 2/6 systolic heard t/o the precordium Abd - Soft, NT/ND, Positive BS Ext - No pedal edema. Right femoral central line in place. Neuro: slurred speech noted, no focal deficits noted, no facial asymmetry Psych - Nml mood and affect Skin - Warm and dry Const: Other: Lethargic, A&O x3, warm to touch HENMT: Mouth: Yes dry mucous membranes Eyes: Pupils: Equal, round and reactive pupils present Neck: Neck: supple Resp: Effort & Inspection: normal respiratory effort Auscultation: clear to auscultation bilaterally Cardio: Rate: regular rate Rhythm: regular rhythm Heart sounds: Murmur heart sound present (Systolic murmur) GI: Inspection: non-distended : General: Yes bladder normal to palpation Neuro: Cranial nerves: Yes Equal, round and reactive pupils present Motor exam (neuro): 5/5 motor strength present throughout Sensory Exam: normal sensation Extrem: General: no edema Objective Data Vital Signs Vital Signs: Vital Signs - 24 hr 09/15/24 08:40 09/15/24 08:40 09/15/24 09:02 Temperature Pulse Rate 106 H 109 H Respiratory Rate 20 Blood Pressure Pulse Oximetry 91 Oxygen Delivery Room Air Fraction of Inspired Oxygen 09/15/24 14:00 09/15/24 19:51 09/15/24 19:53 Temperature 97.0 F L Pulse Rate 98 91 91 Respiratory Rate 20 20 20 Blood Pressure 98/54 L Pulse Oximetry 90 91 Oxygen Delivery Room Air Fraction of Inspired Oxygen 21 09/15/24 20:00 09/15/24 20:01 09/15/24 20:44 Temperature 98.6 F Pulse Rate 95 75 Respiratory Rate 20 16 Blood Pressure 96/50 L Pulse Oximetry 93 Oxygen Delivery Room Air Fraction of Inspired Oxygen 09/16/24 01:20 09/16/24 01:29 09/16/24 05:37 Temperature 98.0 F Pulse Rate 82 85 69 Respiratory Rate 20 20 16 Blood Pressure 133/88 Pulse Oximetry 100 Oxygen Delivery Fraction of Inspired Oxygen 09/16/24 07:43 09/16/24 07:51 Temperature Pulse Rate 87 84 Respiratory Rate 16 16 Blood Pressure Pulse Oximetry Oxygen Delivery Fraction of Inspired Oxygen Intake/Output Intake/Output: Intake & Output 09/13/24 09/14/24 09/15/24 09/16/24 23:59 23:59 23:59 23:59 Intake Total 710 2570 888 Output Total 1999 285 1200 425 Obhswpf -[id number] 1645 -312 -425 Meds/Results Medications: Active Medications Generic Name Dose Route Start Last Admin Trade Name Freq PRN Reason Stop Dose Admin Acetaminophen 650 mg 09/10/24 00:24 09/14/24 05:16 Acetaminophen 325 Mg Tablet PO 650 mg Q4H PRN Administration Mild Pain (1-3) or Fever Albuterol/Ipratropium 3 ml 09/10/24 08:45 09/16/24 07:39 Ipratropium 0.5 Mg/Albuterol Sulfate 2.5 Mg Ampul.Neb 3 Ml INHALATION 3 ml Q6HRT PJ Administration Aspirin 81 mg 09/15/24 09:00 09/15/24 09:06 Aspirin 81 Mg Enteric Tablet PO 81 mg QAM PJ Administration Atorvastatin Calcium 40 mg 09/15/24 09:00 09/15/24 09:06 Atorvastatin 40 Mg Tablet PO 40 mg DAILY PJ Administration Dextrose 12.5 gm 09/10/24 09:20 Dextrose 50% 25 Gm/50 Ml Syringe IV PUSH PRN PRN Hypoglycemia Protocol Dorzolamide/Timolol 1 drop 09/13/24 09:40 09/15/24 20:56 Dorzolamide/Timolol Ophth Sarah 10 Ml Bottle EACH EYE 1 drop Q12HR PJ Administration Enoxaparin Sodium 30 mg 09/11/24 09:00 09/15/24 09:09 Enoxaparin 30 Mg/0.3 Ml Syringe SUB-Q 30 mg DAILY PJ Administration Glucagon 1 mg 09/10/24 09:20 Glucagon For Inj 1 Mg Vial IM PRN PRN Hypoglycemia Protocol Glucose 15 gm 09/10/24 09:20 Glucose Oral Gel 15 Gm Of Glucse In 37.5 Gm Tube PO PRN PRN Hypoglycemia Protocol Dextrose 1,000 mls @ 100 mls/hr 09/10/24 09:20 Dextrose 5% 1,000 Ml IVPB PRN PRN Hypoglycemia Protocol Cefepime HCl 1 gm in 50 mls @ 100 mls/hr 09/12/24 12:00 09/15/24 20:22 Maxipime 1 Gm/Ns 50 Ml IVPB 100 mls/hr Q12HR PJ Administration Metronidazole 500 mg in 100 mls @ 100 mls/hr 09/14/24 10:00 09/16/24 01:44 Flagyl 500 Mg/Iso Soln 100 Ml IVPB 100 mls/hr Q8H PJ Administration Linezolid 600 mg in 300 mls @ 300 mls/hr 09/14/24 21:00 09/15/24 20:55 Zyvox IVPB 300 mls/hr Q12HR PJ Administration Insulin Aspart 1 - 3 units 09/10/24 21:00 09/15/24 21:00 Insulin Aspart (*Bkc) 100 Units/Ml SUB-Q 1 units HS PJ Administration Protocol Insulin Aspart 3 - 6 units 09/10/24 12:00 09/15/24 16:15 Insulin Aspart (*Bkc) 100 Units/Ml SUB-Q Not Given TIDWM [facility] Protocol Mirtazapine 7.5 mg 09/13/24 09:50 09/14/24 09:00 Mirtazapine 7.5 Mg Tablet PO 7.5 mg DAILY PJ Administration Ondansetron HCl 4 mg 09/10/24 00:24 09/10/24 13:19 Ondansetron Inj 4 Mg/2 Ml Vial IV PUSH 4 mg Q4H PRN Administration Nausea Pantoprazole Sodium 40 mg 09/11/24 09:00 09/15/24 09:06 Pantoprazole 40 Mg Tablet PO 40 mg QAM PJ Administration Sodium Chloride 20 ml 09/11/24 08:00 Central Line Flush IV PUSH PRN PRN after blood draws Umeclidinium [place] 1 puff 09/10/24 09:00 09/16/24 07:39 Umeclidinium [place] 62.5 Mcg Ellipta INHALATION 1 puff DAILY PJ Administration Radiology Results: ITS Impressions Chest/Abdomen/Pelvis CT 09/09/24 21:59 IMPRESSION: CHEST: 1. Right pleural effusion. 2. No other definite acute cardiopulmonary pathology seen. 3. Slightly dilated esophagus which may indicate reflux esophagitis. ABDOMEN/PELVIS: 1. No evidence of appendicitis, diverticulitis or intestinal obstruction. 2. Bilateral renal cysts with small density in the right kidney lower pole. Follow-up advised. 3. Bilateral fat containing inguinal hernias. Small fat-containing umbilical hernia. Chest X-Ray 09/11/24 09:02 IMPRESSION: 1. New opacities at the right lower lung zone which could represent atelectasis or pneumonia. 2. Small right pleural effusion. Venous Doppler Study 09/11/24 10:07 IMPRESSION: 1: No lower extremity deep venous thrombosis. Head CT 09/14/24 16:52 IMPRESSION: No acute intracranial findings. Chest CT 09/15/24 05:40 Impression: [id number] bilateral pleural effusions with probable minimal interstitial edema and minimal bibasilar atelectatic change. Carotid Doppler Study 09/15/24 05:43 Impression: Mildly elevated velocity in the right internal carotid artery suggests moderate (50-69%) stenosis, though noted significant plaque clearly evident. Antegrade flow in the bilateral vertebral arteries. Note: The methodology used is an indirect measurement validated against a direct method (such as the NASCET criteria) that compares diameters at the stenosis to the distal ICA. Brain MRI 09/15/24 15:43 IMPRESSION: 1. 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 No acute intracranial process. 2. Age-related changes including mild diffuse volume loss and mild scattered nonspecific white matter T2 hyperintensity consistent with chronic small vessel ischemic disease. Labs Labs: Laboratory Results - last 24 hr 09/15/24 09/15/24 09/15/24 11:08 16:05 20:56 POC Capillary Glucose 163 H 186 H 206 H Quality VTE Prophylaxis VTE prophylaxis: pharmacologic ordered Hospitalist MIPS Advance Care Plan I have confirmed that the patient's Advanced Care Plan is present, code status is documented, or surrogate decision maker is listed in patient medical record.: Yes Medication Reconciliation I have utilized all available resources to obtain, update and review the patients current medications (includes all prescriptions, OTC, herbals, cannabis, and nutritional supplements).: Yes
[2024-09-16] MEDS: PANTOPRAZOLE 40 MG TABLET PO (08:32)
[2024-09-16] MEDS: ATORVASTATIN 40 MG TABLET PO (08:32)
[2024-09-16] MEDS: ASPIRIN 81 MG ENTERIC TABLET PO (08:32)
[2024-09-16] MEDS: CEFEPIME 1 GM/NS 50 ML 1 GM/50 ML BAG IVPB ×2 (08:32→20:47)
[2024-09-16] MEDS: ENOXAPARIN 30 MG/0.3 ML SYRINGE SUB-Q (08:33)
[2024-09-16] MEDS: DORZOLAMIDE/TIMOLOL OPHTH SOL 10 ML BOTTLE 1 DROP EACH EYE ×2 (08:44→21:28)
[2024-09-16 09:00] LABS: Hematocrit 30.5 % (42.0-52.0); Mean Corpuscular HGB Conc 29.5 g/dl (32-36); Mean Corpuscular Hemoglobin 25.6 pg (26-34); Mean Corpuscular Volume 86.6 fl (80-100); Mean Platelet Volume 9.3 fl (7.4-10.4); Platelet Count Result 465 k/mm3 (150-375); Red Blood Count 3.52 M/mm3 (4.6-6.20); Red Cell Distribution Width 16.2 % (11.5-14.5); White Blood Count 14.9 K/mm3 (4.5-10.0)
[2024-09-16 09:00] LABS: Glucose Point of Care 161 mg/dl (65-105)
[2024-09-16 09:11] LABS: Ammonia < 9 umol/L (9-30)
[2024-09-16] MEDS: LINEZOLID 600 MG/300 ML 600 MG/300 ML SOLN 300 MG IVPB ×2 (09:14→21:27)
[2024-09-16 09:32] LABS: Alanine Aminotransferase 12 U/L (6-50); Albumin Level 2.7 g/dL (3.5-5.1); Alkaline Phosphatase 111 U/L (38-126); Anion Gap 9 mmol/L (4-12); Aspartate Amino Transferase 35 U/L (17-59); Bilirubin,Total 0.2 mg/dL (0.2-1.3); Blood Urea Nitrogen 37 mg/dL (9-20); Calcium 9.1 mg/dL (8.4-10.2); Carbon Dioxide 23 mmol/L (22-30); Chloride 103 mmol/L (98-107); Estimated CRCL calculation 20 ml/min; Estimated Glomerular Filt Rate 22; Glucose 176 mg/dL (65-110); Potassium 3.6 mmol/L (3.4-5.0); Sodium 135 mmol/L (137-145); Total Protein 5.4 g/dL (6.3-8.2)
[2024-09-16 09:53] LABS: Syphilis IgG/IgM Antibody Non-Reactive (Nonreactive)
[2024-09-16 10:27] LABS: Free T4 Free Thyroxine Reflex 1.49 ng/dL (0.78-2.19)
[2024-09-16 10:38] LABS: Folic Acid 9.3 ng/mL (2.76->20)
[2024-09-16 11:38] LABS: Total Triiodothyronine (T3) 0.89 NG/ML (0.82-1.58)
[2024-09-16 11:41] LABS: Glucose Point of Care 195 mg/dl (65-105)
--- NOTE | 2024-09-16 12:32 | PCSTNOTE ---
Please refer to the Modified Barium Swallow Evaluation in the EMR.
[2024-09-16 17:24] LABS: Glucose Point of Care 191 mg/dl (65-105)
[2024-09-16 21:58] LABS: Glucose Point of Care 195 mg/dl (65-105)
[2024-09-17] VITALS (15 sets, daily range): BP systolic 90–168; BP diastolic 56–64; PULSE 60–112; RESP 14–24; TEMP 35.8–36.4; O2SAT 86–100
[2024-09-17] MEDS: metroNIDAZOLE 500 MG/ISO 100ML 500 MG/100 ML BAG 100 MG IVPB ×3 (01:13→18:14)
--- NOTE | 2024-09-17 06:11 | PCRCNOTE ---
Window of time for administration has passed. See next scheduled administration.
[2024-09-17 08:18] LABS: Glucose Point of Care 161 mg/dl (65-105)
[2024-09-17] MEDS: ATORVASTATIN 40 MG TABLET PO (08:21)
[2024-09-17] MEDS: ASPIRIN 81 MG ENTERIC TABLET PO (08:21)
[2024-09-17] MEDS: CEFEPIME 1 GM/NS 50 ML 1 GM/50 ML BAG IVPB ×2 (08:21→20:41)
[2024-09-17] MEDS: ENOXAPARIN 30 MG/0.3 ML SYRINGE SUB-Q (08:22)
[2024-09-17] MEDS: PANTOPRAZOLE 40 MG TABLET PO (08:22)
[2024-09-17] MEDS: DORZOLAMIDE/TIMOLOL OPHTH SOL 10 ML BOTTLE 1 DROP EACH EYE ×2 (08:22→21:31)
[2024-09-17] MEDS: IPRATROPIUM 0.5 MG/ALBUTEROL SULFATE 2.5 MG AMPUL.NEB 3 ML INHALATION ×3 (08:25→19:54)
[2024-09-17] MEDS: UMECLIDINIUM BROMIDE 62.5 MCG ELLIPTA 1 PUFF INHALATION (08:25)
[2024-09-17 08:45] LABS: Hematocrit 31.2 % (42.0-52.0); Hemoglobin 9.3 g/dL (14.0-18.0); Mean Corpuscular HGB Conc 29.8 g/dl (32-36); Mean Corpuscular Hemoglobin 25.3 pg (26-34); Mean Corpuscular Volume 84.8 fl (80-100); Mean Platelet Volume 9.4 fl (7.4-10.4); Platelet Count Result 510 k/mm3 (150-375); Red Blood Count 3.68 M/mm3 (4.6-6.20); White Blood Count 14.3 K/mm3 (4.5-10.0)
[2024-09-17 08:50] LABS: Alanine Aminotransferase 13 U/L (6-50); Alkaline Phosphatase 119 U/L (38-126); Anion Gap 11 mmol/L (4-12); Aspartate Amino Transferase 35 U/L (17-59); Bilirubin,Total 0.3 mg/dL (0.2-1.3); Blood Urea Nitrogen 34 mg/dL (9-20); Calcium 9.3 mg/dL (8.4-10.2); Carbon Dioxide 21 mmol/L (22-30); Chloride 103 mmol/L (98-107); Estimated CRCL calculation 20 ml/min; Estimated Glomerular Filt Rate 23; Glucose 181 mg/dL (65-110); Potassium 3.6 mmol/L (3.4-5.0); Sodium 135 mmol/L (137-145); Total Protein 5.7 g/dL (6.3-8.2)
[2024-09-17] MEDS: LINEZOLID 600 MG/300 ML 600 MG/300 ML SOLN 300 MG IVPB ×2 (10:00→21:28)
[2024-09-17] MEDS: INSULIN ASPART (*BKC) 100 UNITS/ML SUB-Q (11:55)
[2024-09-17 11:59] LABS: Glucose Point of Care 227 mg/dl (65-105)
--- NOTE | 2024-09-17 12:46 | PM.IMPN ---
Progress Note: A&P Assessment and Plan (1) Febrile illness: Code(s): R50.9 - Fever, unspecified Status: Acute Assessment and Plan: 09/09: Patient presented with fevers, weakness, hypotension -UA was not reflective of UTI -CT Ch/A/P without contrast demonstrating right pleural effusion, slightly dilated esophagus, bilateral renal cyst,. Bilateral fat containing inguinal hernias and small fat containing umbilical hernia. -09/09: BCx NGTD MRSA nasal swab negative. COVID, influenza and RSV PCR negative. Started on cefepime and vancomycin (09/09) but vanco stopped on 09/11. Venous duplex negative for DVT. CXR with new opacities of the right lower lung zone which could represent atelectasis or pneumonia with small right pleural effusion. Repeat BCx 09/12 NGTD CRP 8 -> 27. WBC higher at 12K. But fever curve better. Patient feels better. Continue Cefepime for now. add flagyl for anaerobic coverage 09/14/24. recheck mrsa positive. will add linezolid TTE with no signifciant findings. Hx of aspiration PNA so will have speech therapy evaluate. Consider BERNA to exclude endocarditis but felt unlikely with negative BCx. does not meet's Carnes's criteria. (2) Sepsis: Code(s): A41.9 - Sepsis, unspecified organism Status: Acute Assessment and Plan: Patient was hypotensive in the ER, received 30 cc/kg IV fluids and central line was inserted Levophed started but able to be weaned off Blood pressures stable Continue antibiotics as above (3) Chronic kidney disease, stage 3: Code(s): N18.30 - Chronic kidney disease, stage 3 unspecified Status: Acute Assessment and Plan: Patient with history of CKD (baseline 2.50-3.26) On admission creatinine was 2.37. -patient did diurese well as he was volume overloaded and congested -received albumin -urine output has been adequate Cr stable at 2.4 -continue to monitor renal function, electrolytes and urine output (4) Chronic obstructive pulmonary disease: Code(s): J44.9 - Chronic obstructive pulmonary disease, unspecified Status: Acute Assessment and Plan: No wheezing appreciated. Continue neb treatments. Continue home Spiriva Wean O2 as tolerated. (5) A-fib: Code(s): I48.91 - Unspecified atrial fibrillation Status: Acute Assessment and Plan: History of AFib -on carvedilol at home -will hold for now as patient's BP still soft -heart rate is controlled for now Not on anticoagulation at home due to history of bleeding gastric ulcer. His last EGD 3-4 years ago (6) Hypertension: Code(s): I10 - Essential (primary) hypertension Status: Chronic Assessment and Plan: Patient on Coreg, lisinopril and chlorthalidone at home. Continue to hold off on since patient was on pressors briefly and now with soft BP. Resume home meds as BP tolerates. (7) Type 2 diabetes mellitus: Code(s): E11.9 - Type 2 diabetes mellitus without complications Status: Chronic Assessment and Plan: Glucose remains well controlled. Continue AccuCheks covering with sliding scale. Hypoglycemia protocol available as needed. Resume home lantus and aspart when able (8) Renal mass: Code(s): N28.89 - Other specified disorders of kidney and ureter Status: Acute Assessment and Plan: Incidental finding by CT showing a left upper pole cyst measuring 2.9 cm. Exophytic cyst is seen in the right kidney midpole measuring 3 cm. Tiny hypodense lesion seen in the right kidney lower pole most likely hemorrhagic cyst. Tiny mass cannot be excluded. Follow-up advised. Will need outpatient followup (9) Slurred speech: Code(s): R47.81 - Slurred speech Status: Acute Assessment and Plan: Noticed some slurred speech 09/14/24 Brain MRI:1. 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 No acute intracranial process. 2. Age-related changes including mild diffuse volume loss and mild scattered nonspecific white matter T2 hyperintensity consistent with chronic small vessel ischemic disease. Echocardiogram was performed on 08/30/2024 which shows moderate aortic stenosis Carotid Doppler:Mildly elevated velocity in the right internal carotid artery suggests moderate (50-69%) stenosis, though noted significant plaque clearly evident. Antegrade flow in the bilateral vertebral arteries. Following Neurology recommendation Plan DVT prophylaxis: Lovenox Code Status: Full code UIP pattern chronic interstitial lung disease mild Patulous esophagus with reflux esophagitis: likely etiology for aspiration pneumonia. Code Status: Full code Subjective Date/time seen: 09/17/24 12:46 Interval history: Reviewed MRI brain. Pending re-evaluation from Neurology. Reviewed CT scan chest and abdomen. Advised incentive spirometry. Review of Systems Review of Systems: All systems reviewed & are unremarkable except as noted in HPI and below Exam Narrative: Gen - NARD lying semi-recumbent in bed Chest - bronchial BS. no egophony. nml RR CV - irregular with 2/6 systolic heard t/o the precordium Abd - Soft, NT/ND, Positive BS Ext - No pedal edema. Right femoral central line in place. Neuro: slurred speech noted, no focal deficits noted, no facial asymmetry Psych - Nml mood and affect Skin - Warm and dry Const: Other: Lethargic, A&O x3, warm to touch HENMT: Mouth: Yes dry mucous membranes Eyes: Pupils: Equal, round and reactive pupils present Neck: Neck: supple Resp: Effort & Inspection: normal respiratory effort Auscultation: clear to auscultation bilaterally Cardio: Rate: regular rate Rhythm: regular rhythm Heart sounds: Murmur heart sound present (Systolic murmur) GI: Inspection: non-distended : General: Yes bladder normal to palpation Neuro: Cranial nerves: Yes Equal, round and reactive pupils present Motor exam (neuro): 5/5 motor strength present throughout Sensory Exam: normal sensation Extrem: General: no edema Objective Data Vital Signs Vital Signs: Vital Signs - 24 hr 09/16/24 13:20 09/16/24 13:28 09/16/24 14:00 Temperature 97.0 F L Pulse Rate 96 100 100 Respiratory Rate 16 16 22 H Blood Pressure 136/75 Pulse Oximetry 92 Oxygen Delivery Oxygen Flow Rate Fraction of Inspired Oxygen 09/16/24 20:00 09/16/24 21:22 09/16/24 21:32 Temperature Pulse Rate 98 104 H Respiratory Rate 16 16 Blood Pressure Pulse Oximetry Oxygen Delivery Room Air Oxygen Flow Rate Fraction of Inspired Oxygen 21 09/16/24 22:00 09/17/24 06:00 09/17/24 08:00 Temperature 99.5 F 97.6 F Pulse Rate 110 H 60 Respiratory Rate 16 14 Blood Pressure 108/47 L 168/64 H Pulse Oximetry 94 96 95 Oxygen Delivery Nasal Cannula Oxygen Flow Rate 2 Fraction of Inspired Oxygen 09/17/24 08:26 09/17/24 08:26 09/17/24 08:40 Temperature Pulse Rate 102 H 102 H 101 H Respiratory Rate 20 20 20 Blood Pressure Pulse Oximetry 100 Oxygen Delivery Nasal Cannula Oxygen Flow Rate 2 Fraction of Inspired Oxygen Intake/Output Intake/Output: Intake & Output 09/14/24 09/15/24 09/16/24 09/17/24 23:59 23:59 23:59 23:59 Intake Total 2570 1238 1677 220 Output Total 925 1200 875 500 Balance 1645 38 802 -280 Meds/Results Medications: Active Medications Generic Name Dose Route Start Last Admin Trade Name Freq PRN Reason Stop Dose Admin Acetaminophen 650 mg 09/10/24 00:24 09/14/24 05:16 Acetaminophen 325 Mg Tablet PO 650 mg Q4H PRN Administration Mild Pain (1-3) or Fever Albuterol/Ipratropium 3 ml 09/10/24 08:45 09/17/24 08:25 Ipratropium 0.5 Mg/Albuterol Sulfate 2.5 Mg Ampul.Neb 3 Ml INHALATION 3 ml Q6HRT PJ Administration Aspirin 81 mg 09/15/24 09:00 09/17/24 08:21 Aspirin 81 Mg Enteric Tablet PO 81 mg QAM PJ Administration Atorvastatin Calcium 40 mg 09/15/24 09:00 09/17/24 08:21 Atorvastatin 40 Mg Tablet PO 40 mg DAILY PJ Administration Dextrose 12.5 gm 09/10/24 09:20 Dextrose 50% 25 Gm/50 Ml Syringe IV PUSH PRN PRN Hypoglycemia Protocol Dorzolamide/Timolol 1 drop 09/13/24 09:40 09/17/24 08:22 Dorzolamide/Timolol Ophth Sarah 10 Ml Bottle EACH EYE 1 drop Q12HR PJ Administration Enoxaparin Sodium 30 mg 09/11/24 09:00 09/17/24 08:22 Enoxaparin 30 Mg/0.3 Ml Syringe SUB-Q 30 mg DAILY PJ Administration Glucagon 1 mg 09/10/24 09:20 Glucagon For Inj 1 Mg Vial IM PRN PRN Hypoglycemia Protocol Glucose 15 gm 09/10/24 09:20 Glucose Oral Gel 15 Gm Of Glucse In 37.5 Gm Tube PO PRN PRN Hypoglycemia Protocol Dextrose 1,000 mls @ 100 mls/hr 09/10/24 09:20 Dextrose 5% 1,000 Ml IVPB PRN PRN Hypoglycemia Protocol Cefepime HCl 1 gm in 50 mls @ 100 mls/hr 09/12/24 12:00 09/17/24 08:21 Maxipime 1 Gm/Ns 50 Ml IVPB 100 mls/hr Q12HR PJ Administration Metronidazole 500 mg in 100 mls @ 100 mls/hr 09/14/24 10:00 09/17/24 10:05 Flagyl 500 Mg/Iso Soln 100 Ml IVPB 100 mls/hr Q8H PJ Administration Linezolid 600 mg in 300 mls @ 300 mls/hr 09/14/24 21:00 09/17/24 10:00 Zyvox IVPB 300 mls/hr Q12HR PJ Administration Insulin Aspart 1 - 3 units 09/10/24 21:00 09/16/24 21:59 Insulin Aspart (*Bkc) 100 Units/Ml SUB-Q Not Given HS PJ Protocol Insulin Aspart 3 - 6 units 09/10/24 12:00 09/17/24 11:55 Insulin Aspart (*Bkc) 100 Units/Ml SUB-Q 3 units TIDWM PJ Administration Protocol Mirtazapine 7.5 mg 09/13/24 09:50 09/14/24 09:00 Mirtazapine 7.5 Mg Tablet PO 7.5 mg DAILY PJ Administration Ondansetron HCl 4 mg 09/10/24 00:24 09/10/24 13:19 Ondansetron Inj 4 Mg/2 Ml Vial IV PUSH 4 mg Q4H PRN Administration Nausea Pantoprazole Sodium 40 mg 09/11/24 09:00 09/17/24 08:22 Pantoprazole 40 Mg Tablet PO 40 mg QAM PJ Administration Sodium Chloride 20 ml 09/11/24 08:00 Central Line Flush IV PUSH PRN PRN after blood draws Umeclidinium [place] 1 puff 09/10/24 09:00 09/16/24 07:39 Umeclidinium [place] 62.5 Mcg Ellipta INHALATION 1 puff DAILY PJ Administration Radiology Results: ITS Impressions Chest/Abdomen/Pelvis CT 09/09/24 21:59 IMPRESSION: CHEST: 1. Right pleural effusion. 2. No other definite acute cardiopulmonary pathology seen. 3. Slightly dilated esophagus which may indicate reflux esophagitis. ABDOMEN/PELVIS: 1. No evidence of appendicitis, diverticulitis or intestinal obstruction. 2. Bilateral renal cysts with small density in the right kidney lower pole. Follow-up advised. 3. Bilateral fat containing inguinal hernias. Small fat-containing umbilical hernia. Chest X-Ray 09/11/24 09:02 IMPRESSION: 1. New opacities at the right lower lung zone which could represent atelectasis or pneumonia. 2. Small right pleural effusion. Venous Doppler Study 09/11/24 10:07 IMPRESSION: 1: No lower extremity deep venous thrombosis. Head CT 09/14/24 16:52 IMPRESSION: No acute intracranial findings. Chest CT 09/15/24 05:40 Impression: [id number] bilateral pleural effusions with probable minimal interstitial edema and minimal bibasilar atelectatic change. Carotid Doppler Study 09/15/24 05:43 Impression: Mildly elevated velocity in the right internal carotid artery suggests moderate (50-69%) stenosis, though noted significant plaque clearly evident. Antegrade flow in the bilateral vertebral arteries. Note: The methodology used is an indirect measurement validated against a direct method (such as the NASCET criteria) that compares diameters at the stenosis to the distal ICA. Brain MRI 09/15/24 15:43 IMPRESSION: 1. 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 No acute intracranial process. 2. Age-related changes including mild diffuse volume loss and mild scattered nonspecific white matter T2 hyperintensity consistent with chronic small vessel ischemic disease. Modified Barium Swallow 09/16/24 13:13 IMPRESSION: Patient tolerated regular consistency oral feedings in the upright position. Please correlate with speech pathologist findings and specific feeding recommendations. Chest/Abdomen CT 09/16/24 13:52 IMPRESSION: 1. Unchanged small bilateral posterior layering pleural effusions with dependent atelectasis in both lungs. No pulmonary edema or pneumonia in the aerated portions of the lungs. Labs Labs: Laboratory Results - last 24 hr 09/16/24 09/16/24 09/17/24 17:20 21:50 08:08 WBC RBC Hgb Hct MCV MCH MCHC RDW Plt Count MPV Sodium Potassium Chloride Carbon Dioxide Anion Gap BUN Creatinine Estim Creat Clear Calc Estimated GFR Glucose POC Capillary Glucose 191 H 195 H 161 H Calcium Total Bilirubin AST ALT Alkaline Phosphatase Total Protein Albumin 09/17/24 09/17/24 08:26 11:47 WBC 14.3 H RBC 3.68 L Hgb 9.3 L Hct 31.2 L MCV 84.8 MCH 25.3 L MCHC 29.8 L RDW 16.0 H Plt Count 510 H MPV 9.4 Sodium 135 L Potassium 3.6 Chloride 103 Carbon Dioxide 21 L Anion Gap 11 BUN 34 H Creatinine 2.65 H Estim Creat Clear Calc 20 Estimated GFR 23 L Glucose 181 H POC Capillary Glucose 227 H Calcium 9.3 Total Bilirubin 0.3 AST 35 ALT 13 Alkaline Phosphatase 119 Total Protein 5.7 L Albumin 3.0 L Quality VTE Prophylaxis VTE prophylaxis: pharmacologic ordered Hospitalist MIPS Advance Care Plan I have confirmed that the patient's Advanced Care Plan is present, code status is documented, or surrogate decision maker is listed in patient medical record.: Yes Medication Reconciliation I have utilized all available resources to obtain, update and review the patients current medications (includes all prescriptions, OTC, herbals, cannabis, and nutritional supplements).: Yes
[2024-09-17 15:03] LABS: Ammonia < 9 umol/L (9-30)
[2024-09-17 15:23] LABS: Alveolar/Arterial O2 Gradient 56.1 mmHg; Base Excess ABG -1.9 mEq/l (+/-2.0); Fractional Inspired Oxygen 28 %; HCO3 ABG 24.1 mEq/l (22.0-26.0); Oxygen Content ABG 12.8 %vol (16.0-22.0); PCO2 ABG 47.1 mmHg (35.0-45.0); PO2 FiO2 Ratio Arterial Blood 3.14 %; Total Hemoglobin 9.4 g/dL (12.0-18.0); pH ABG 7.327 (7.350-7.450)
[2024-09-17 15:25] LABS: Site Drawn LEFT RADIAL
[2024-09-17 15:26] LABS: Device NASAL CANNULA; Modified Allen's Test Pass
[2024-09-17 17:20] LABS: Glucose Point of Care 183 mg/dl (65-105)
[2024-09-17 20:26] LABS: Glucose Point of Care 197 mg/dl (65-105)
[2024-09-18] VITALS (19 sets, daily range): BP systolic 72–144; BP diastolic 47–89; PULSE 85–124; RESP 20–30; TEMP 36.1–37.6; O2SAT 92–100
[2024-09-18] MEDS: metroNIDAZOLE 500 MG/ISO 100ML 500 MG/100 ML BAG 100 MG IVPB (01:16)
[2024-09-18] MEDS: IPRATROPIUM 0.5 MG/ALBUTEROL SULFATE 2.5 MG AMPUL.NEB 3 ML INHALATION ×4 (01:58→20:12)
[2024-09-18 06:00] LABS: Hematocrit 31.3 % (42.0-52.0); Hemoglobin 8.9 g/dL (14.0-18.0); Mean Corpuscular HGB Conc 28.4 g/dl (32-36); Mean Corpuscular Hemoglobin 24.7 pg (26-34); Mean Corpuscular Volume 86.7 fl (80-100); Mean Platelet Volume 9.4 fl (7.4-10.4); Platelet Count Result 524 k/mm3 (150-375); Red Blood Count 3.61 M/mm3 (4.6-6.20); Red Cell Distribution Width 16.2 % (11.5-14.5); White Blood Count 13.8 K/mm3 (4.5-10.0)
[2024-09-18 06:17] LABS: Alanine Aminotransferase 12 U/L (6-50); Albumin Level 2.9 g/dL (3.5-5.1); Alkaline Phosphatase 117 U/L (38-126); Anion Gap 10 mmol/L (4-12); Aspartate Amino Transferase 37 U/L (17-59); Bilirubin,Total 0.2 mg/dL (0.2-1.3); Blood Urea Nitrogen 33 mg/dL (9-20); Calcium 9.2 mg/dL (8.4-10.2); Carbon Dioxide 24 mmol/L (22-30); Chloride 102 mmol/L (98-107); Estimated CRCL calculation 21 ml/min; Estimated Glomerular Filt Rate 24; Glucose 194 mg/dL (65-110); Potassium 3.4 mmol/L (3.4-5.0); Sodium 136 mmol/L (137-145); Total Protein 5.5 g/dL (6.3-8.2)
[2024-09-18 07:37] LABS: Glucose Point of Care 161 mg/dl (65-105)
[2024-09-18 07:56] LABS: Glucose Point of Care 182 mg/dl (65-105)
[2024-09-18] MEDS: UMECLIDINIUM BROMIDE 62.5 MCG ELLIPTA 1 PUFF INHALATION (08:15)
[2024-09-18] MEDS: ASPIRIN 81 MG ENTERIC TABLET PO (08:57)
[2024-09-18] MEDS: CEFEPIME 1 GM/NS 50 ML 1 GM/50 ML BAG IVPB (08:57)
[2024-09-18] MEDS: DORZOLAMIDE/TIMOLOL OPHTH SOL 10 ML BOTTLE 1 DROP EACH EYE ×2 (08:58→21:04)
[2024-09-18] MEDS: ATORVASTATIN 40 MG TABLET PO (08:58)
[2024-09-18] MEDS: PANTOPRAZOLE 40 MG TABLET PO (08:58)
--- NOTE | 2024-09-18 09:11 | PM.IMPN ---
Progress Note: A&P Assessment and Plan (1) Febrile illness: Code(s): R50.9 - Fever, unspecified Status: Acute Assessment and Plan: 09/09: Patient presented with fevers, weakness, hypotension -UA was not reflective of UTI -CT Ch/A/P without contrast demonstrating right pleural effusion, slightly dilated esophagus, bilateral renal cyst,. Bilateral fat containing inguinal hernias and small fat containing umbilical hernia. -09/09: BCx NGTD MRSA nasal swab negative. COVID, influenza and RSV PCR negative. Started on cefepime and vancomycin (09/09) but vanco stopped on 09/11. Venous duplex negative for DVT. CXR with new opacities of the right lower lung zone which could represent atelectasis or pneumonia with small right pleural effusion. Repeat BCx 09/12 NGTD CRP 8 -> 27. WBC higher at 12K. But fever curve better. Patient feels better. Continue Cefepime for now. add flagyl for anaerobic coverage 09/14/24. recheck mrsa positive. will add linezolid TTE with no signifciant findings. Hx of aspiration PNA so will have speech therapy evaluate. Consider BERNA to exclude endocarditis but felt unlikely with negative BCx. does not meet's Carnes's criteria. 09/18: Started on ceftriaxone,ampicillin ,vancomycin and acyclovir due to possible meningitis Unable to perform LP due to PT/PTT/INR increase Will repeat PT/PTT/INR Lactic acid is normal CRP and ESR is elevated. Possible source of infection UTI (2) Sepsis: Code(s): A41.9 - Sepsis, unspecified organism Status: Acute Assessment and Plan: Patient was hypotensive in the ER, received 30 cc/kg IV fluids and central line was inserted Levophed started but able to be weaned off Blood pressures stable Continue antibiotics as above (3) Chronic kidney disease, stage 3: Code(s): N18.30 - Chronic kidney disease, stage 3 unspecified Status: Acute Assessment and Plan: Patient with history of CKD (baseline 2.50-3.26) On admission creatinine was 2.37. -patient did diurese well as he was volume overloaded and congested -received albumin -urine output has been adequate Cr stable at 2.4 -continue to monitor renal function, electrolytes and urine output (4) Chronic obstructive pulmonary disease: Code(s): J44.9 - Chronic obstructive pulmonary disease, unspecified Status: Acute Assessment and Plan: No wheezing appreciated. Continue neb treatments. Continue home Spiriva Wean O2 as tolerated. (5) A-fib: Code(s): I48.91 - Unspecified atrial fibrillation Status: Acute Assessment and Plan: History of AFib -on carvedilol at home -will hold for now as patient's BP still soft -heart rate is controlled for now Not on anticoagulation at home due to history of bleeding gastric ulcer. His last EGD 3-4 years ago (6) Hypertension: Code(s): I10 - Essential (primary) hypertension Status: Chronic Assessment and Plan: Patient on Coreg, lisinopril and chlorthalidone at home. Continue to hold off on since patient was on pressors briefly and now with soft BP. Resume home meds as BP tolerates. (7) Type 2 diabetes mellitus: Code(s): E11.9 - Type 2 diabetes mellitus without complications Status: Chronic Assessment and Plan: Glucose remains well controlled. Continue AccuCheks covering with sliding scale. Hypoglycemia protocol available as needed. Resume home lantus and aspart when able (8) Renal mass: Code(s): N28.89 - Other specified disorders of kidney and ureter Status: Acute Assessment and Plan: Incidental finding by CT showing a left upper pole cyst measuring 2.9 cm. Exophytic cyst is seen in the right kidney midpole measuring 3 cm. Tiny hypodense lesion seen in the right kidney lower pole most likely hemorrhagic cyst. Tiny mass cannot be excluded. Follow-up advised. Will need outpatient followup (9) Slurred speech: Code(s): R47.81 - Slurred speech Status: Acute Assessment and Plan: Noticed some slurred speech 09/14/24 Brain MRI:1. 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 No acute intracranial process. 2. Age-related changes including mild diffuse volume loss and mild scattered nonspecific white matter T2 hyperintensity consistent with chronic small vessel ischemic disease. Echocardiogram was performed on 08/30/2024 which shows moderate aortic stenosis Carotid Doppler:Mildly elevated velocity in the right internal carotid artery suggests moderate (50-69%) stenosis, though noted significant plaque clearly evident. Antegrade flow in the bilateral vertebral arteries. 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 I had a long conversation with his , who reports that the patient had two episodes of sepsis last year in July (possibly due to UTI) and March 2024 (unknown). Later this year, he was admitted for cellulitis, discharged to home, and returned to the hospital due to diarrhea and dehydration. The patient then went to rehab, did very well, and returned home with outpatient rehab. Later, he returned to [place] due to PNA and was discharged to [facility], but returned due to fever(09/10/2024). During the current admission, the patient had low BP at ED and was transferred to ICU but never started on vasopressor. Before I assumed care, he was on the workup for metabolic encephalopathy. His CT brain and MRI brain show no significant finding other than previous CVA. The patient has a history of A. Fib but not on AC due to prior history of GI bleed. His last EGD was 3 -4 years ago. The patient's mentation waxed and waned, including his blood pressure, which was 70/40 on the med-surgery floor today, with manual intervention. I did discuss the case with the brush cutter, who agreed on a meningitis workup and advised me to repeat the UA, which currently shows mild UTI. Dr. Linares advised giving a 1L bolus and maintaining it at 100ml/hr. The patient was moved to the IMU, but his blood pressure was 120/90, and he never started on fluids. His mentation was also improved. As mentioned above, the patient underwent a complete CVA workup, which did not show any significant findings. I ordered LP and started ceftriaxone, ampicillin, vancomycin, and acyclovir for possible meningitis. Order PT/PTT/INR, lactic acid, CRP, and ESR. Ordered neuro check q.4 hours. During this hospitalization the patient underwent two MBS procedures, which showed no significant aspiration. However, today, he has decreased mentation and will undergo a repeat bedside swallow test. The patient's is concerned about nutrition and has ordered a dietary consult. We can consider TPN or enteral feeding if he fails bedside swallow. The patient was unable to undergo LP due to an increase in PT/PTT/INR. His suspicion of DIC is very low. Order EEG, fibrinogen, UC, and BC. I will repeat the PT/PTT/INR tomorrow.His lactic acid is normal however his CRP and ESR is elevated. I believe his source of infection is UTI but still need to exclude meningitis.Pending re-evaluation from Neurology.Patient currently has [facility]ne. At the request of , she wanted to transfer the [facility] for continuity of care. I initiated the transfer and was accepted by (Oncology) and he reports his is in appropriate care and will accept for continuity for care to [facility]. DVT prophylaxis: Lovenox Code Status: Full code UIP pattern chronic interstitial lung disease mild Patulous esophagus with reflux esophagitis: likely etiology for aspiration pneumonia. 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 I had a long conversation with his , who reports that the patient had two episodes of sepsis last year in July (possibly due to UTI) and March 2024 (unknown). Later this year, he was admitted for cellulitis, discharged to home, and returned to the hospital due to diarrhea and dehydration. The patient then went to rehab, did very well, and returned home with outpatient rehab. Later, he returned to [place] due to PNA and was discharged to [facility], but returned due to fever(09/10/2024). During the current admission, the patient had low BP at ED and was transferred to ICU but never started on vasopressor. Before I assumed care, he was on the workup for metabolic encephalopathy. His CT brain and MRI brain show no significant finding other than previous CVA. The patient has a history of A. Fib but not on AC due to prior history of GI bleed. His last EGD was 3 -4 years ago. The patient's mentation waxed and waned, including his blood pressure, which was 70/40 on the med-surgery floor today, with manual intervention. I did discuss the case with the brush cutter, who agreed on a meningitis workup and advised me to repeat the UA, which currently shows mild UTI. Dr. Linares advised giving a 1L bolus and maintaining it at 100ml/hr. The patient was moved to the IMU, but his blood pressure was 120/90, and he never started on fluids. His mentation was also improved. As mentioned above, the patient underwent a complete CVA workup, which did not show any significant findings. I ordered LP and started ceftriaxone, ampicillin, vancomycin, and acyclovir for possible meningitis. Order PT/PTT/INR, lactic acid, CRP, and ESR. Ordered neuro check q.4 hours. During this hospitalization the patient underwent two MBS procedures, which showed no significant aspiration. However, today, he has decreased mentation and will undergo a repeat bedside swallow test. The patient's is concerned about nutrition and has ordered a dietary consult. We can consider TPN or enteral feeding if he fails bedside swallow. The patient was unable to undergo LP due to an increase in PT/PTT/INR. His suspicion of DIC is very low. Order EEG, fibrinogen, UC, and BC. I will repeat the PT/PTT/INR tomorrow.His lactic acid is normal however his CRP and ESR is elevated. I believe his source of infection is UTI but still need to exclude meningitis.Pending re-evaluation from Neurology.Patient currently has wayne. At the request of , she wanted to transfer the [facility] for continuity of care. I initiated the transfer and was accepted by (Oncology) and he reports his is in appropriate care and will accept for continuity for care to [facility]. Review of Systems Review of Systems: All systems reviewed & are unremarkable except as noted in HPI and below Exam Narrative: Gen - NARD lying semi-recumbent in bed Chest - bronchial BS. no egophony. nml RR CV - irregular with 2/6 systolic heard t/o the precordium Abd - Soft, NT/ND, Positive BS Ext - No pedal edema. Right femoral central line in place. Neuro: Unable to follow command, no focal deficits noted, no facial asymmetry Psych - Nml mood and affect Skin - Warm and dry Const: Other: Lethargic, A&O x1, warm to touch HENMT: Mouth: Yes dry mucous membranes Eyes: Pupils: Equal, round and reactive pupils present Neck: Neck: supple Resp: Effort & Inspection: normal respiratory effort Auscultation: clear to auscultation bilaterally Cardio: Rate: regular rate Rhythm: regular rhythm Heart sounds: Murmur heart sound present (Systolic murmur) GI: Inspection: non-distended : General: Yes bladder normal to palpation Neuro: Cranial nerves: Yes Equal, round and reactive pupils present Motor exam (neuro): 5/5 motor strength present throughout Sensory Exam: normal sensation Extrem: General: no edema Objective Data Vital Signs Vital Signs: Vital Signs - 24 hr 09/17/24 10:08 09/17/24 10:15 09/17/24 13:51 Temperature Pulse Rate 98 Respiratory Rate 22 H 20 Blood Pressure Pulse Oximetry 86 L 94 97 Oxygen Delivery Nasal Cannula Nasal Cannula Oxygen Flow Rate 2 2 Fraction of Inspired Oxygen 09/17/24 13:51 09/17/24 14:00 09/17/24 14:03 Temperature 97.1 F L Pulse Rate 98 112 H 100 Respiratory Rate 20 18 20 Blood Pressure 90/56 L Pulse Oximetry 97 Oxygen Delivery Oxygen Flow Rate Fraction of Inspired Oxygen 09/17/24 16:34 09/17/24 19:55 09/17/24 19:56 Temperature Pulse Rate 104 H Respiratory Rate 20 Blood Pressure Pulse Oximetry 94 95 Oxygen Delivery Nasal Cannula Oxygen Flow Rate 2 Fraction of Inspired Oxygen 09/17/24 20:00 09/17/24 20:06 09/17/24 20:48 Temperature 96.5 F L Pulse Rate 106 H 104 H Respiratory Rate 20 24 H Blood Pressure 112/64 Pulse Oximetry 96 96 Oxygen Delivery Nasal Cannula Oxygen Flow Rate 2 Fraction of Inspired Oxygen 09/18/24 01:58 09/18/24 02:08 09/18/24 06:00 Temperature 98.2 F Pulse Rate 100 103 H 101 H Respiratory Rate 20 20 20 Blood Pressure 130/63 Pulse Oximetry 100 Oxygen Delivery Oxygen Flow Rate Fraction of Inspired Oxygen 09/18/24 07:40 09/18/24 07:42 09/18/24 08:13 Temperature Pulse Rate 95 98 Respiratory Rate 20 20 Blood Pressure Pulse Oximetry 92 Oxygen Delivery Nasal Cannula Oxygen Flow Rate 2 Fraction of Inspired Oxygen 28 Intake/Output Intake/Output: Intake & Output 09/15/24 09/16/24 09/17/24 09/18/24 23:59 23:59 23:59 23:59 Intake Total 1238 1677 1260 Output Total 1200 875 500 Balance 38 802 760 Meds/Results Medications: Active Medications Generic Name Dose Route Start Last Admin Trade Name Freq PRN Reason Stop Dose Admin Acetaminophen 650 mg 09/10/24 00:24 09/14/24 05:16 Acetaminophen 325 Mg Tablet PO 650 mg Q4H PRN Administration Mild Pain (1-3) or Fever Albuterol/Ipratropium 3 ml 09/10/24 08:45 09/18/24 07:42 Ipratropium 0.5 Mg/Albuterol Sulfate 2.5 Mg Ampul.Neb 3 Ml INHALATION 3 ml Q6HRT PJ Administration Aspirin 81 mg 09/15/24 09:00 09/18/24 08:57 Aspirin 81 Mg Enteric Tablet PO 81 mg QAM PJ Administration Atorvastatin Calcium 40 mg 09/15/24 09:00 09/18/24 08:58 Atorvastatin 40 Mg Tablet PO 40 mg DAILY PJ Administration Dextrose 12.5 gm 09/10/24 09:20 Dextrose 50% 25 Gm/50 Ml Syringe IV PUSH PRN PRN Hypoglycemia Protocol Dorzolamide/Timolol 1 drop 09/13/24 09:40 09/18/24 08:58 Dorzolamide/Timolol Ophth Sarah 10 Ml Bottle EACH EYE 1 drop Q12HR PJ Administration Enoxaparin Sodium 30 mg 09/11/24 09:00 09/17/24 08:22 Enoxaparin 30 Mg/0.3 Ml Syringe SUB-Q 30 mg DAILY PJ Administration Glucagon 1 mg 09/10/24 09:20 Glucagon For Inj 1 Mg Vial IM PRN PRN Hypoglycemia Protocol Glucose 15 gm 09/10/24 09:20 Glucose Oral Gel 15 Gm Of Glucse In 37.5 Gm Tube PO PRN PRN Hypoglycemia Protocol Dextrose 1,000 mls @ 100 mls/hr 09/10/24 09:20 Dextrose 5% 1,000 Ml IVPB PRN PRN Hypoglycemia Protocol Cefepime HCl 1 gm in 50 mls @ 100 mls/hr 09/12/24 12:00 09/18/24 08:57 Maxipime 1 Gm/Ns 50 Ml IVPB 100 mls/hr Q12HR PJ Administration Metronidazole 500 mg in 100 mls @ 100 mls/hr 09/14/24 10:00 09/18/24 01:16 Flagyl 500 Mg/Iso Soln 100 Ml IVPB 100 mls/hr Q8H PJ Administration Linezolid 600 mg in 300 mls @ 300 mls/hr 09/14/24 21:00 09/17/24 21:28 Zyvox IVPB 300 mls/hr Q12HR PJ Administration Insulin Aspart 1 - 3 units 09/10/24 21:00 09/17/24 21:27 Insulin Aspart (*Bkc) 100 Units/Ml SUB-Q Not Given HS [facility] Protocol Insulin Aspart 3 - 6 units 09/10/24 12:00 09/18/24 09:04 Insulin Aspart (*Bkc) 100 Units/Ml SUB-Q Not Given TIDWM [facility] Protocol Mirtazapine 7.5 mg 09/13/24 09:50 09/14/24 09:00 Mirtazapine 7.5 Mg Tablet PO 7.5 mg DAILY PJ Administration Ondansetron HCl 4 mg 09/10/24 00:24 09/10/24 13:19 Ondansetron Inj 4 Mg/2 Ml Vial IV PUSH 4 mg Q4H PRN Administration Nausea Pantoprazole Sodium 40 mg 09/11/24 09:00 09/18/24 08:58 Pantoprazole 40 Mg Tablet PO 40 mg QAM PJ Administration Sodium Chloride 20 ml 09/11/24 08:00 Central Line Flush IV PUSH PRN PRN after blood draws Umeclidinium Jenks 1 puff 09/10/24 09:00 09/18/24 08:15 Umeclidinium Jenks 62.5 Mcg Ellipta INHALATION 1 puff DAILY PJ Administration Radiology Results: ITS Impressions Chest/Abdomen/Pelvis CT 09/09/24 21:59 IMPRESSION: CHEST: 1. Right pleural effusion. 2. No other definite acute cardiopulmonary pathology seen. 3. Slightly dilated esophagus which may indicate reflux esophagitis. ABDOMEN/PELVIS: 1. No evidence of appendicitis, diverticulitis or intestinal obstruction. 2. Bilateral renal cysts with small density in the right kidney lower pole. Follow-up advised. 3. Bilateral fat containing inguinal hernias. Small fat-containing umbilical hernia. Chest X-Ray 09/11/24 09:02 IMPRESSION: 1. New opacities at the right lower lung zone which could represent atelectasis or pneumonia. 2. Small right pleural effusion. Venous Doppler Study 09/11/24 10:07 IMPRESSION: 1: No lower extremity deep venous thrombosis. Head CT 09/14/24 16:52 IMPRESSION: No acute intracranial findings. Chest CT 09/15/24 05:40 Impression: [id number] bilateral pleural effusions with probable minimal interstitial edema and minimal bibasilar atelectatic change. Carotid Doppler Study 09/15/24 05:43 Impression: Mildly elevated velocity in the right internal carotid artery suggests moderate (50-69%) stenosis, though noted significant plaque clearly evident. Antegrade flow in the bilateral vertebral arteries. Note: The methodology used is an indirect measurement validated against a direct method (such as the NASCET criteria) that compares diameters at the stenosis to the distal ICA. Brain MRI 09/15/24 15:43 IMPRESSION: 1. 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 No acute intracranial process. 2. Age-related changes including mild diffuse volume loss and mild scattered nonspecific white matter T2 hyperintensity consistent with chronic small vessel ischemic disease. Modified Barium Swallow 09/16/24 13:13 IMPRESSION: Patient tolerated regular consistency oral feedings in the upright position. Please correlate with speech pathologist findings and specific feeding recommendations. Chest/Abdomen CT 09/16/24 13:52 IMPRESSION: 1. Unchanged small bilateral posterior layering pleural effusions with dependent atelectasis in both lungs. No pulmonary edema or pneumonia in the aerated portions of the lungs. Labs Labs: Laboratory Results - last 24 hr 09/17/24 09/17/24 09/17/24 11:47 14:42 15:17 WBC RBC Hgb Hct MCV MCH MCHC RDW Plt Count MPV Puncture Site Left radial ABG pH 7.327 L ABG pCO2 47.1 H ABG pO2 88.0 ABG PO2/FiO2 Ratio 3.14 ABG HCO3 24.1 ABG O2 Saturation 96.0 ABG O2 Content 12.8 L ABG Base Excess -1.9 A-a Gradient 56.1 Oxyhemoglobin 96.0 Total Hemoglobin 9.4 L O2 Delivery Device Nasal cannula O2 Liters/Min 2.0 FiO2 28 Sodium Potassium Chloride Carbon Dioxide Anion Gap BUN Creatinine Estim Creat Clear Calc Estimated GFR Glucose POC Capillary Glucose 227 H Calcium Total Bilirubin AST ALT Alkaline Phosphatase Ammonia < 9 L Total Protein Albumin 09/17/24 09/17/24 09/18/24 16:33 20:21 05:37 WBC 13.8 H RBC 3.61 L Hgb 8.9 L Hct 31.3 L MCV 86.7 MCH 24.7 L MCHC 28.4 L RDW 16.2 H Plt Count 524 H MPV 9.4 Puncture Site ABG pH ABG pCO2 ABG pO2 ABG PO2/FiO2 Ratio ABG HCO3 ABG O2 Saturation ABG O2 Content ABG Base Excess A-a Gradient Oxyhemoglobin Total Hemoglobin O2 Delivery Device O2 Liters/Min FiO2 Sodium 136 L Potassium 3.4 Chloride 102 Carbon Dioxide 24 Anion Gap 10 BUN 33 H Creatinine 2.60 H Estim Creat Clear Calc 21 Estimated GFR 24 L Glucose 194 H POC Capillary Glucose 183 H 197 H Calcium 9.2 Total Bilirubin 0.2 AST 37 ALT 12 Alkaline Phosphatase 117 Ammonia Total Protein 5.5 L Albumin 2.9 L 09/18/24 09/18/24 07:18 07:53 WBC RBC Hgb Hct MCV MCH MCHC RDW Plt Count MPV Puncture Site ABG pH ABG pCO2 ABG pO2 ABG PO2/FiO2 Ratio ABG HCO3 ABG O2 Saturation ABG O2 Content ABG Base Excess A-a Gradient Oxyhemoglobin Total Hemoglobin O2 Delivery Device O2 Liters/Min FiO2 Sodium Potassium Chloride Carbon Dioxide Anion Gap BUN Creatinine Estim Creat Clear Calc Estimated GFR Glucose POC Capillary Glucose 161 H 182 H Calcium Total Bilirubin AST ALT Alkaline Phosphatase Ammonia Total Protein Albumin Quality VTE Prophylaxis VTE prophylaxis: pharmacologic ordered Hospitalist MIPS Advance Care Plan I have confirmed that the patient's Advanced Care Plan is present, code status is documented, or surrogate decision maker is listed in patient medical record.: Yes Medication Reconciliation I have utilized all available resources to obtain, update and review the patients current medications (includes all prescriptions, OTC, herbals, cannabis, and nutritional supplements).: Yes
[2024-09-18] MEDS: ENOXAPARIN 30 MG/0.3 ML SYRINGE SUB-Q (09:42)
[2024-09-18] MEDS: LINEZOLID 600 MG TABLET PO (09:46)
[2024-09-18 11:27] LABS: Glucose Point of Care 213 mg/dl (65-105)
[2024-09-18] MEDS: INSULIN ASPART (*BKC) 100 UNITS/ML SUB-Q (12:06)
--- NOTE | 2024-09-18 12:54 | PCPTNOTE ---
The patient treatment was not able to be completed on 09/18/2024. Per RN patient not appropriate for therapy and patient may be transferring to IMU. Patient very lethargic today and not able to participate. Will plan to continue treatment per plan of care.
--- NOTE | 2024-09-18 13:12 | PCOTNOTE ---
The patient treatment was not able to be completed. Not appropriate at this time. Per RN low BP and potential to move to IMU. Will plan to continue treatment per plan of care.
[2024-09-18] MEDS: cefTRIAXone 2 GM/NS 100 ML 2 GM/100 ML BAG IVPB ×2 (13:31→20:59)
[2024-09-18 13:57] LABS: INR 1.4
[2024-09-18 13:58] LABS: Partial Thromboplastin Time 53.4 Seconds (22.3-36.8)
[2024-09-18 14:07] LABS: Ammonia < 9 umol/L (9-30)
[2024-09-18 14:08] LABS: Erythrocyte Sedimentation Rate 98 mm/hr (0-20)
[2024-09-18 14:21] LABS: Lactic Acid Reflex 1.8 mmol/L (0.7-2.0)
[2024-09-18] MEDS: VANCOMYCIN 1,250 MG/NS 250 ML 1,250 MG/250 ML BAG 166.67 MG IVPB (14:23)
[2024-09-18] MEDS: AMPICILLIN 2 GM/NS 100 ML 2 GM/100 ML BAG IVPB ×2 (14:23→21:41)
[2024-09-18 15:00] LABS: Add Urine Microscopic? YES; Appearance Urine Clear (Clear); Bacteria Urine None Seen /hpf; Bilirubin Urine Negative (Negative); Blood Urine 1+ (Negative); Color Urine Yellow (Yellow); Glucose Urine UA Negative (Negative); Ketones Urine Negative (Negative); Leukocyte Esterase Ur 1+ LEU/UL (Negative); Nitrate Urine Negative (Negative); Protein Urine 2+ mg/dL (Negative); Specific Grav Ur 1.014 (1.001-1.035); Squamous Epithelial Cell Urine None Seen /hpf (Few); Urobilinogen Urine 0.2 mg/dL (<2.0); pH Urine 5.5 (5.0-9.0)
[2024-09-18 16:10] LABS: NT Pro B Type Natriuretic Pept 6740 pg/mL (19.9-100)
[2024-09-18 16:20] LABS: CRP. 17.5 mg/dL (<1.0)
[2024-09-18] MEDS: VANCOMYCIN 1,000 MG/NS 250 ML 1,000 MG/250 ML BAG 250 MG IVPB (17:12)
--- NOTE | 2024-09-18 17:16 | PC.NURSE ---
Spoke w/ Dr. VALDEZ regarding request of patient's to transfer patient to [facility]. Told him that she stated this is her first choice of where she would like him to transfer, while her second choice would be [facility]. stated he would make calls.
[2024-09-18 17:17] LABS: Glucose Point of Care 159 mg/dl (65-105)
[2024-09-18 17:24] LABS: Alveolar/Arterial O2 Gradient 60.2 mmHg; Base Excess ABG -1.1 mEq/l (+/-2.0); Device NASAL CANNULA; Fractional Inspired Oxygen 28 %; HCO3 ABG 25.3 mEq/l (22.0-26.0); Modified Allen's Test Pass; Oxygen Content ABG 12.8 %vol (16.0-22.0); Oxygen Saturation ABG 94.6 % (95.0-100.0); Oxyhemoglobin 94.8 % THb (90.0-100.0); PCO2 ABG 50.9 mmHg (35.0-45.0); PO2 ABG 79.4 mmHg (80.0-100.0); PO2 FiO2 Ratio Arterial Blood 2.84 %; Site Drawn LEFT RADIAL; Total Hemoglobin 9.5 g/dL (12.0-18.0); pH ABG 7.315 (7.350-7.450)
[2024-09-18 18:27] LABS: Hematocrit 29.5 % (42.0-52.0); Hemoglobin 8.4 g/dL (14.0-18.0); Mean Corpuscular HGB Conc 28.5 g/dl (32-36); Mean Corpuscular Hemoglobin 24.7 pg (26-34); Mean Corpuscular Volume 86.8 fl (80-100); Mean Platelet Volume 9.2 fl (7.4-10.4); Platelet Count Result 519 k/mm3 (150-375); Red Cell Distribution Width 16.4 % (11.5-14.5); White Blood Count 14.2 K/mm3 (4.5-10.0)
[2024-09-18 18:37] LABS: Alanine Aminotransferase 12 U/L (6-50); Albumin Level 2.7 g/dL (3.5-5.1); Alkaline Phosphatase 106 U/L (38-126); Anion Gap 7 mmol/L (4-12); Aspartate Amino Transferase 33 U/L (17-59); Bilirubin,Total 0.1 mg/dL (0.2-1.3); Blood Urea Nitrogen 33 mg/dL (9-20); Calcium 9.3 mg/dL (8.4-10.2); Carbon Dioxide 25 mmol/L (22-30); Chloride 103 mmol/L (98-107); Estimated CRCL calculation 20 ml/min; Estimated Glomerular Filt Rate 23; Glucose 158 mg/dL (65-110); Potassium 3.5 mmol/L (3.4-5.0); Sodium 135 mmol/L (137-145); Total Protein 5.4 g/dL (6.3-8.2)
[2024-09-18 18:39] LABS: INR 1.4; Prothrombin Time 16.6 Seconds (11.1-14.7)
[2024-09-18 18:40] LABS: Fibrinogen 566 mg/dl (215-510); Partial Thromboplastin Time 49.6 Seconds (22.3-36.8)
[2024-09-18] MEDS: ACYCLOVIR SODIUM IVPB 900 MG in DEXTROSE 5% IN WATER 250 ML 249.63 MG IVPB (18:42)
[2024-09-18] MEDS: SODIUM CHLORIDE 0.9% IV 1,000 ML 75 ML IV CONT (18:42)
[2024-09-18 21:11] LABS: Glucose Point of Care 165 mg/dl (65-105)
[2024-09-18] MEDS: FUROSEMIDE INJ 40 MG/4 ML VIAL 20 MG IV PUSH (21:41)
[2024-09-19] VITALS (31 sets, daily range): BP systolic 79–136; BP diastolic 38–99; PULSE 80–105; RESP 18–29; TEMP 36.4–37.7; O2SAT 93–100
[2024-09-19 04:31] LABS: Hematocrit 29.5 % (42.0-52.0); Hemoglobin 8.3 g/dL (14.0-18.0); Mean Corpuscular HGB Conc 28.1 g/dl (32-36); Mean Corpuscular Hemoglobin 24.6 pg (26-34); Mean Corpuscular Volume 87.5 fl (80-100); Mean Platelet Volume 9.2 fl (7.4-10.4); Platelet Count Result 515 k/mm3 (150-375); Red Blood Count 3.37 M/mm3 (4.6-6.20); Red Cell Distribution Width 16.6 % (11.5-14.5); White Blood Count 15.1 K/mm3 (4.5-10.0)
[2024-09-19 04:44] LABS: INR 1.3; Prothrombin Time 16.4 Seconds (11.1-14.7)
[2024-09-19 04:45] LABS: Alanine Aminotransferase 11 U/L (6-50); Albumin Level 2.6 g/dL (3.5-5.1); Alkaline Phosphatase 103 U/L (38-126); Anion Gap 8 mmol/L (4-12); Aspartate Amino Transferase 31 U/L (17-59); Bilirubin,Total 0.1 mg/dL (0.2-1.3); Blood Urea Nitrogen 32 mg/dL (9-20); Carbon Dioxide 23 mmol/L (22-30); Chloride 104 mmol/L (98-107); Estimated CRCL calculation 19 ml/min; Estimated Glomerular Filt Rate 21; Glucose 147 mg/dL (65-110); Partial Thromboplastin Time 41.9 Seconds (22.3-36.8); Potassium 3.5 mmol/L (3.4-5.0); Sodium 135 mmol/L (137-145); Total Protein 5.2 g/dL (6.3-8.2)
--- NOTE | 2024-09-19 05:00 | PCRCNOTE ---
ABG was done at 2340. RR was changed at 0010 due to ABG. order per Dr Raymond. Breathing TX was done inline on BIPAP at 0137. Found Pt on 4 LPM NC at 0431.
[2024-09-19] MEDS: AMPICILLIN 2 GM/NS 100 ML 2 GM/100 ML BAG IVPB ×3 (05:15→21:03)
[2024-09-19 05:30] LABS: Alveolar/Arterial O2 Gradient 41.8 mmHg; Fractional Inspired Oxygen 28 %; HCO3 ABG 22.6 mEq/l (22.0-26.0); Oxygen Content ABG 11.9 %vol (16.0-22.0); Oxygen Saturation ABG 95.4 % (95.0-100.0); Oxyhemoglobin 95.3 % THb (90.0-100.0); PCO2 ABG 55.7 mmHg (35.0-45.0); PO2 ABG 92.1 mmHg (80.0-100.0); PO2 FiO2 Ratio Arterial Blood 3.29 %; Total Hemoglobin 8.8 g/dL (12.0-18.0)
[2024-09-19 05:31] LABS: Device NASAL CANNULA; Modified Allen's Test Pass; Site Drawn RIGHT RADIAL; pH ABG 7.226 (7.350-7.450)
--- NOTE | 2024-09-19 06:05 | P.PNCROSS_ITS ---
Event Note Event Note Event Note: Nursing staff called. Patient's ABG demonstrated worsening hypercarbia with re spiratory acidosis. Patient is already on scheduled nebulizer treatments. I will add Solu-Medrol 40 mg IV q.[address] patient on BiPAP 12/6 with a rate of 18 with orders for respiratory therapy to adjust BiPAP settings for goal tidal volume 450 or greater but not to exceed 550. Will defer repeat labs in management to daytime service.
[2024-09-19] MEDS: methylPREDNISolone SOD SUCC 40 MG VIAL IV PUSH ×3 (06:12→18:20)
[2024-09-19] MEDS: IPRATROPIUM 0.5 MG/ALBUTEROL SULFATE 2.5 MG AMPUL.NEB 3 ML INHALATION ×3 (08:10→19:59)
[2024-09-19 08:16] LABS: Glucose Point of Care 158 mg/dl (65-105)
[2024-09-19 08:43] LABS: Base Excess ABG -3.2 mEq/l (+/-2.0); Fractional Inspired Oxygen 30 %; HCO3 ABG 23.3 mEq/l (22.0-26.0); Oxygen Content ABG 12.2 %vol (16.0-22.0); Oxygen Saturation ABG 90.7 % (95.0-100.0); Oxyhemoglobin 92.1 % THb (90.0-100.0); PCO2 ABG 48.7 mmHg (35.0-45.0); PO2 ABG 65.7 mmHg (80.0-100.0); PO2 FiO2 Ratio Arterial Blood 2.19 %; Total Hemoglobin 9.4 g/dL (12.0-18.0)
[2024-09-19 08:48] LABS: Device BIPAP; Modified Allen's Test Pass; Site Drawn LEFT RADIAL; pH ABG 7.297 (7.350-7.450)
[2024-09-19 08:49] LABS: Expiratory Pressure 6 cmH2O; Inspiratory Pressure 12 cmH2O
[2024-09-19] MEDS: cefTRIAXone 2 GM/NS 100 ML 2 GM/100 ML BAG IVPB ×2 (09:03→20:01)
--- NOTE | 2024-09-19 11:20 | PCPTNOTE ---
The patient treatment was not able to be completed on 09/19/2024. Per RN patient is not appropriate for therapy. Patient on continuous Bipap and not arousable. Will plan to continue treatment per plan of care.
[2024-09-19 11:36] LABS: Alveolar/Arterial O2 Gradient 91.2 mmHg; Base Excess ABG -4.9 mEq/l (+/-2.0); Fractional Inspired Oxygen 35 %; HCO3 ABG 20.2 mEq/l (22.0-26.0); Oxygen Content ABG 12.8 %vol (16.0-22.0); PCO2 ABG 37.4 mmHg (35.0-45.0); PO2 ABG 114.9 mmHg (80.0-100.0); PO2 FiO2 Ratio Arterial Blood 3.28 %; Total Hemoglobin 9.1 g/dL (12.0-18.0); pH ABG 7.351 (7.350-7.450)
[2024-09-19 11:39] LABS: Device BIPAP; Expiratory Pressure 6 cmH2O; Inspiratory Pressure 12 cmH2O; Modified Allen's Test Pass; Site Drawn RIGHT RADIAL
--- NOTE | 2024-09-19 12:01 | PCNFU ---
Nutrition Follow-Up Complete: Unintentional weight loss related to poor appetite and intake as evidenced by pt report and charted intake Goal:PO intake 50% or greater of meals and supplements Pt not meeting goal Pt current nutrition is Renal, NPO today due to lack of orientation. Nutrition recommendation: NPO at this time for safety Last recorded weight is 94 kg. Bowel Motility: +BM 09/18 Labs Reviewed: Hgb:8.3, HCT:29.5, NA:135, GFR:21, BUN:32, Cr:2.8 Meds Noted: novolog, protonix, lovenox, solumedrol Skin: WNL Additional Notes: Pt was on a renal diet, Ensure Enlive BID. NPO today due to decreased mentation and for safety. Possible speech evaluation. Will monitor. Pt also awaiting bed at [facility] Monitor intake, wt, labs. Follow up in 3 days.
[2024-09-19 12:35] LABS: Glucose Point of Care 192 mg/dl (65-105)
[2024-09-19] MEDS: PANTOPRAZOLE 40 MG TABLET PO (13:17)
[2024-09-19] MEDS: ATORVASTATIN 40 MG TABLET PO (13:17)
[2024-09-19] MEDS: ASPIRIN 81 MG ENTERIC TABLET PO (13:17)
[2024-09-19 14:57] LABS: INR 1.4; Prothrombin Time 16.9 Seconds (11.1-14.7)
[2024-09-19 14:58] LABS: Partial Thromboplastin Time 43.1 Seconds (22.3-36.8)
--- NOTE | 2024-09-19 15:40 | PCOTNOTE ---
Therapist checked in with RN for therapy treatment session this date. Per RN, Patient can not be seen, unable to arouse to participate, on hold. Updated OTR. Will follow up
--- NOTE | 2024-09-19 17:11 | P.PNIM_ITS ---
Progress Note: A&P Assessment and Plan (1) Febrile illness: Code(s): R50.9 - Fever, unspecified Status: Acute Assessment and Plan: 09/09: Patient presented with fevers, weakness, hypotension -UA was not reflective of UTI -CT Ch/A/P without contrast demonstrating right pleural effusion, slightly dilated esophagus, bilateral renal cyst,. Bilateral fat containing inguinal hernias and small fat containing umbilical hernia. -09/09: BCx NGTD MRSA nasal swab negative. COVID, influenza and RSV PCR negative. Started on cefepime and vancomycin (09/09) but vanco stopped on 09/11. Venous duplex negative for DVT. CXR with new opacities of the right lower lung zone which could represent atelectasis or pneumonia with small right pleural effusion. Repeat BCx 09/12 NGTD CRP 8 -> 27. WBC higher at 12K. But fever curve better. Patient feels better. Continue Cefepime for now. add flagyl for anaerobic coverage 09/14/24. recheck mrsa positive. will add linezolid TTE with no signifciant findings. Hx of aspiration PNA so will have speech therapy evaluate. Consider BERNA to exclude endocarditis but felt unlikely with negative BCx. does not meet's Carnes's criteria. Started on ceftriaxone,ampicillin ,vancomycin and acyclovir due to possible meningitis Will repeat PT/PTT/INR Lactic acid is normal CRP and ESR is elevated. Possible source of infection UTI Lumbar puncture today (2) Sepsis: Code(s): A41.9 - Sepsis, unspecified organism Status: Acute Assessment and Plan: Patient was hypotensive in the ER, received 30 cc/kg IV fluids and central line was inserted Levophed started but able to be weaned off Blood pressures stable Continue antibiotics as above (3) Chronic kidney disease, stage 3: Code(s): N18.30 - Chronic kidney disease, stage 3 unspecified Status: Acute Assessment and Plan: Patient with history of CKD (baseline 2.50-3.26) On admission creatinine was 2.37. -patient did diurese well as he was volume overloaded and congested -received albumin -urine output has been adequate Cr stable at 2.4, 2.83 today -continue to monitor renal function, electrolytes and urine output (4) Chronic obstructive pulmonary disease: Code(s): J44.9 - Chronic obstructive pulmonary disease, unspecified Status: Acute Assessment and Plan: No wheezing appreciated. Continue neb treatments. Continue home Spiriva Wean O2 as tolerated. (5) A-fib: Code(s): I48.91 - Unspecified atrial fibrillation Status: Acute Assessment and Plan: History of AFib -on carvedilol at home -will hold for now as patient's BP still soft -heart rate is controlled for now Not on anticoagulation at home due to history of bleeding gastric ulcer. His last EGD 3-4 years ago (6) Hypertension: Code(s): I10 - Essential (primary) hypertension Status: Chronic Assessment and Plan: Patient on Coreg, lisinopril and chlorthalidone at home. Continue to hold off on since patient was on pressors briefly and now with soft BP. Resume home meds as BP tolerates. (7) Type 2 diabetes mellitus: Code(s): E11.9 - Type 2 diabetes mellitus without complications Status: Chronic Assessment and Plan: Glucose remains well controlled. Continue AccuCheks covering with sliding scale. Hypoglycemia protocol available as needed. Resume home lantus and aspart when able (8) Renal mass: Code(s): N28.89 - Other specified disorders of kidney and ureter Status: Acute Assessment and Plan: Incidental finding by CT showing a left upper pole cyst measuring 2.9 cm. Exophytic cyst is seen in the right kidney midpole measuring 3 cm. Tiny hypodense lesion seen in the right kidney lower pole most likely hemorrhagic cyst. Tiny mass cannot be excluded. Follow-up advised. Will need outpatient followup (9) Slurred speech: Code(s): R47.81 - Slurred speech Status: Acute Assessment and Plan: Noticed some slurred speech 09/14/24 Brain MRI:1. 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 No acute intracranial process. 2. Age-related changes including mild diffuse volume loss and mild scattered nonspecific white matter T2 hyperintensity consistent with chronic small vessel ischemic disease. Echocardiogram was performed on 08/30/2024 which shows moderate aortic stenosis Carotid Doppler:Mildly elevated velocity in the right internal carotid artery suggests moderate (50-69%) stenosis, though noted significant plaque clearly evident. Antegrade flow in the bilateral vertebral arteries. Following Neurology recommendation Order LP studies Started on ceftriaxone, ampicillin, Acyclovir and vancomycin Neuro check q.[address] head today 09/19 negative Plan Acute hypoxemic hypercapnic respiratory failure likely from bronchospasm and CHF ECHO showed diastolic dysfunction CT chest showed bilateral pleural effusion s/p BiPAP on NC oxygen At the request of , she wanted to transfer the [facility] for continuity of care. I initiated the transfer and was accepted by (Oncology) and he reports his is in appropriate care and will accept for continuity for care to [facility]. DVT prophylaxis: Lovenox Code Status: Full code Patulous esophagus with reflux esophagitis: likely etiology for aspiration pneumonia. Code Status: Full code Subjective Date/time seen: 09/19/24 17:11 Review of Systems Review of Systems: All systems reviewed & are unremarkable except as noted in HPI and below Exam Narrative: Gen - NARD lying semi-recumbent in bed Chest - bronchial BS. no egophony. nml RR CV - irregular with 2/6 systolic heard t/o the precordium Abd - Soft, NT/ND, Positive BS Ext - No pedal edema. Right femoral central line in place. Neuro: Unable to follow command, no focal deficits noted, no facial asymmetry Psych - Nml mood and affect Skin - Warm and dry Const: Other: Lethargic, A&O x1, warm to touch HENMT: Mouth: Yes dry mucous membranes Eyes: Pupils: Equal, round and reactive pupils present Neck: Neck: supple Resp: Effort & Inspection: normal respiratory effort Auscultation: clear to auscultation bilaterally Cardio: Rate: regular rate Rhythm: regular rhythm Heart sounds: Murmur heart sound present (Systolic murmur) GI: Inspection: non-distended : General: Yes bladder normal to palpation Neuro: Cranial nerves: Yes Equal, round and reactive pupils present Motor exam (neuro): 5/5 motor strength present throughout Sensory Exam: normal sensation Extrem: General: no edema Objective Data Vital Signs Vital Signs: Vital Signs - 24 hr 09/18/24 18:28 09/18/24 20:00 09/18/24 20:00 Temperature 99.7 F H Pulse Rate 87 97 Respiratory Rate 28 H Blood Pressure 144/89 H Pulse Oximetry 96 96 Oxygen Delivery Nasal Cannula Oxygen Flow Rate 2 Fraction of Inspired Oxygen 09/18/24 20:00 09/18/24 20:12 09/18/24 20:17 Temperature Pulse Rate 105 H 96 Respiratory Rate 20 Blood Pressure Pulse Oximetry 94 Oxygen Delivery Nasal Cannula Oxygen Flow Rate 3 Fraction of Inspired Oxygen 09/18/24 20:22 09/18/24 22:00 09/19/24 00:00 Temperature 98.9 F Pulse Rate 91 104 H 105 H Respiratory Rate 20 28 H Blood Pressure 94/49 L Pulse Oximetry 100 Oxygen Delivery Oxygen Flow Rate Fraction of Inspired Oxygen 09/19/24 00:00 09/19/24 00:00 09/19/24 02:00 Temperature Pulse Rate 100 102 H Respiratory Rate Blood Pressure Pulse Oximetry 94 Oxygen Delivery Nasal Cannula Oxygen Flow Rate 2 Fraction of Inspired Oxygen 09/19/24 03:52 09/19/24 04:00 09/19/24 04:00 Temperature 99.0 F Pulse Rate 85 101 H Respiratory Rate 26 H Blood Pressure 124/45 L Pulse Oximetry 96 96 Oxygen Delivery Nasal Cannula Oxygen Flow Rate 2 Fraction of Inspired Oxygen 09/19/24 06:00 09/19/24 06:15 09/19/24 07:40 Temperature 99.8 F H Pulse Rate 102 H 92 98 Respiratory Rate 21 H 25 H Blood Pressure 111/49 L Pulse Oximetry 98 93 Oxygen Delivery BiPAP Oxygen Flow Rate Fraction of Inspired Oxygen 09/19/24 08:00 09/19/24 08:20 09/19/24 08:20 Temperature Pulse Rate 96 80 Respiratory Rate 29 H Blood Pressure Pulse Oximetry 96 96 Oxygen Delivery BiPAP BiPAP Oxygen Flow Rate Fraction of Inspired Oxygen 30 09/19/24 08:20 09/19/24 10:00 09/19/24 11:48 Temperature Pulse Rate 80 96 Respiratory Rate 29 H Blood Pressure Pulse Oximetry 96 Oxygen Delivery Nasal Cannula Oxygen Flow Rate 2 Fraction of Inspired Oxygen 09/19/24 12:00 09/19/24 12:36 09/19/24 13:35 Temperature 99.7 F H Pulse Rate 98 99 93 Respiratory Rate 22 H 20 Blood Pressure 118/55 L Pulse Oximetry 96 Oxygen Delivery Oxygen Flow Rate Fraction of Inspired Oxygen 09/19/24 13:41 09/19/24 14:00 09/19/24 16:00 Temperature 97.6 F Pulse Rate 89 96 90 Respiratory Rate 20 20 Blood Pressure 98/53 L Pulse Oximetry 96 Oxygen Delivery Oxygen Flow Rate Fraction of Inspired Oxygen 09/19/24 16:50 09/19/24 16:50 Temperature Pulse Rate Respiratory Rate Blood Pressure 97/48 L 109/45 L Pulse Oximetry Oxygen Delivery Oxygen Flow Rate Fraction of Inspired Oxygen Intake/Output Intake/Output: Intake & Output 09/16/24 09/17/24 09/18/24 09/19/24 23:59 23:59 23:59 23:59 Intake Total 1677 1260 1865 1200 Output Total 875 500 550 650 Balance 640 908 7541 550 Meds/Results Medications: Active Medications Generic Name Dose Route Start Last Admin Trade Name Freq PRN Reason Stop Dose Admin Acetaminophen 650 mg 09/10/24 00:24 09/14/24 05:16 Acetaminophen 325 Mg Tablet PO 650 mg Q4H PRN Administration Mild Pain (1-3) or Fever Albuterol/Ipratropium 3 ml 09/10/24 08:45 09/19/24 13:32 Ipratropium 0.5 Mg/Albuterol Sulfate 2.5 Mg Ampul.Neb 3 Ml INHALATION 3 ml Q6HRT PJ Administration Aspirin 81 mg 09/15/24 09:00 09/19/24 13:17 Aspirin 81 Mg Enteric Tablet PO 81 mg QAM PJ Administration Atorvastatin Calcium 40 mg 09/15/24 09:00 09/19/24 13:17 Atorvastatin 40 Mg Tablet PO 40 mg DAILY PJ Administration Dextrose 12.5 gm 09/10/24 09:20 Dextrose 50% 25 Gm/50 Ml Syringe IV PUSH PRN PRN Hypoglycemia Protocol Dorzolamide/Timolol 1 drop 09/13/24 09:40 09/19/24 10:55 Dorzolamide/Timolol Ophth Sarah 10 Ml Bottle EACH EYE Not Given Q12HR PJ Enoxaparin Sodium 30 mg 09/11/24 09:00 09/18/24 09:42 Enoxaparin 30 Mg/0.3 Ml Syringe SUB-Q 30 mg DAILY PJ Administration Glucagon 1 mg 09/10/24 09:20 Glucagon For Inj 1 Mg Vial IM PRN PRN Hypoglycemia Protocol Glucose 15 gm 09/10/24 09:20 Glucose Oral Gel 15 Gm Of Glucse In 37.5 Gm Tube PO PRN PRN Hypoglycemia Protocol Dextrose 1,000 mls @ 100 mls/hr 09/10/24 09:20 Dextrose 5% 1,000 Ml IVPB PRN PRN Hypoglycemia Protocol Ceftriaxone Sodium 2 gm in 100 mls @ 200 mls/hr 09/18/24 12:45 09/19/24 09:33 Rocephin 2 Gm/Ns 100 Ml IVPB Infused Q12HR PJ Infusion Vancomycin HCl 1,500 mg in 500 mls @ 250 mls/hr 09/20/24 02:00 Vancomycin 1,500 Mg/Ns 500 Ml IVPB Q36H PJ Ampicillin Sodium 2 gm in 100 mls @ 200 mls/hr 09/18/24 14:00 09/19/24 13:17 Ampicillin 2 Gm/Ns 100 Ml IVPB 200 mls/hr Q8HR PJ Administration Sodium Chloride 1,000 mls @ 75 mls/hr 09/18/24 17:05 09/19/24 08:02 Normal Saline Iv IV CONT Infused .[id number] PJ Infusion Acyclovir Sodium 900 mg/ 268 mls @ 249.625 mls/hr 09/18/24 18:00 09/18/24 19:47 Dextrose IVPB Infused Q24H PJ Infusion Insulin Aspart 1 - 3 units 09/10/24 21:00 09/18/24 21:04 Insulin Aspart (*Bkc) 100 Units/Ml SUB-Q Not Given HS [facility] Protocol Insulin Aspart 3 - 6 units 09/10/24 12:00 09/19/24 13:05 Insulin Aspart (*Bkc) 100 Units/Ml SUB-Q Not Given TIDWM [facility] Protocol Methylprednisolone Sodium Succinate 40 mg 09/19/24 06:05 09/19/24 13:15 Methylprednisolone Sod Succ 40 Mg Vial IV PUSH 40 mg Q6HR PJ Administration Mirtazapine 7.5 mg 09/13/24 09:50 09/14/24 09:00 Mirtazapine 7.5 Mg Tablet PO 7.5 mg DAILY PJ Administration Ondansetron HCl 4 mg 09/10/24 00:24 09/10/24 13:19 Ondansetron Inj 4 Mg/2 Ml Vial IV PUSH 4 mg Q4H PRN Administration Nausea Pantoprazole Sodium 40 mg 09/11/24 09:00 09/19/24 13:17 Pantoprazole 40 Mg Tablet PO 40 mg QAM PJ Administration Sodium Chloride 20 ml 09/11/24 08:00 Central Line Flush IV PUSH PRN PRN after blood draws Umeclidinium [place] 1 puff 09/10/24 09:00 09/19/24 08:22 Umeclidinium [place] 62.5 Mcg Ellipta INHALATION Not Given DAILY PJ Radiology Results: ITS Impressions Chest/Abdomen/Pelvis CT 09/09/24 21:59 IMPRESSION: CHEST: 1. Right pleural effusion. 2. No other definite acute cardiopulmonary pathology seen. 3. Slightly dilated esophagus which may indicate reflux esophagitis. ABDOMEN/PELVIS: 1. No evidence of appendicitis, diverticulitis or intestinal obstruction. 2. Bilateral renal cysts with small density in the right kidney lower pole. Follow-up advised. 3. Bilateral fat containing inguinal hernias. Small fat-containing umbilical hernia. Venous Doppler Study 09/11/24 10:07 IMPRESSION: 1: No lower extremity deep venous thrombosis. Chest CT 09/15/24 05:40 Impression: [id number] bilateral pleural effusions with probable minimal interstitial edema and minimal bibasilar atelectatic change. Carotid Doppler Study 09/15/24 05:43 Impression: Mildly elevated velocity in the right internal carotid artery suggests moderate (50-69%) stenosis, though noted significant plaque clearly evident. Antegrade flow in the bilateral vertebral arteries. Note: The methodology used is an indirect measurement validated against a direct method (such as the NASCET criteria) that compares diameters at the stenosis to the distal ICA. Brain MRI 09/15/24 15:43 IMPRESSION: 1. 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 No acute intracranial process. 2. Age-related changes including mild diffuse volume loss and mild scattered nonspecific white matter T2 hyperintensity consistent with chronic small vessel ischemic disease. Modified Barium Swallow 09/16/24 13:13 IMPRESSION: Patient tolerated regular consistency oral feedings in the upright position. Please correlate with speech pathologist findings and specific feeding recommendations. Chest/Abdomen CT 09/16/24 13:52 IMPRESSION: 1. Unchanged small bilateral posterior layering pleural effusions with dependent atelectasis in both lungs. No pulmonary edema or pneumonia in the aerated portions of the lungs. Chest X-Ray 09/19/24 12:26 IMPRESSION: 1. Unchanged small bilateral pleural effusions with associated mild bibasilar atelectasis. Head CT 09/19/24 16:37 IMPRESSION: No acute intracranial findings. Labs Labs: Laboratory Results - last 24 hr 09/18/24 09/18/24 09/18/24 17:13 17:19 18:12 WBC 14.2 H RBC 3.40 L Hgb 8.4 L Hct 29.5 L MCV 86.8 MCH 24.7 L MCHC 28.5 L RDW 16.4 H Plt Count 519 H MPV 9.2 PT 16.6 H INR 1.4 APTT 49.6 H Fibrinogen 566 H Puncture Site Left radial ABG pH 7.315 L ABG pCO2 50.9 H ABG pO2 79.4 L ABG PO2/FiO2 Ratio 2.84 ABG HCO3 25.3 ABG O2 Saturation 94.6 L ABG O2 Content 12.8 L ABG Base Excess -1.1 A-a Gradient 60.2 Oxyhemoglobin 94.8 Total Hemoglobin 9.5 L O2 Delivery Device Nasal cannula O2 Liters/Min 2.0 FiO2 28 Expiratory Pressure Inspiratory Pressure Sodium 135 L Potassium 3.5 Chloride 103 Carbon Dioxide 25 Anion Gap 7 BUN 33 H Creatinine 2.64 H Estim Creat Clear Calc 20 Estimated GFR 23 L Glucose 158 H POC Capillary Glucose 159 H Calcium 9.3 Total Bilirubin 0.1 L AST 33 ALT 12 Alkaline Phosphatase 106 Total Protein 5.4 L Albumin 2.7 L 09/18/24 09/19/24 09/19/24 20:57 04:23 05:05 WBC 15.1 H RBC 3.37 L Hgb 8.3 L Hct 29.5 L MCV 87.5 MCH 24.6 L MCHC 28.1 L RDW 16.6 H Plt Count 515 H MPV 9.2 PT 16.4 H INR 1.3 APTT 41.9 H Fibrinogen Puncture Site Right radial ABG pH 7.226 L* ABG pCO2 55.7 H ABG pO2 92.1 ABG PO2/FiO2 Ratio 3.29 ABG HCO3 22.6 ABG O2 Saturation 95.4 ABG O2 Content 11.9 L ABG Base Excess -5.0 A-a Gradient 41.8 Oxyhemoglobin 95.3 Total Hemoglobin 8.8 L O2 Delivery Device Nasal cannula O2 Liters/Min 2.0 FiO2 28 Expiratory Pressure Inspiratory Pressure Sodium 135 L Potassium 3.5 Chloride 104 Carbon Dioxide 23 Anion Gap 8 BUN 32 H Creatinine 2.83 H Estim Creat Clear Calc 19 Estimated GFR 21 L Glucose 147 H POC Capillary Glucose 165 H Calcium 9.0 Total Bilirubin 0.1 L AST 31 ALT 11 Alkaline Phosphatase 103 Total Protein 5.2 L Albumin 2.6 L 09/19/24 09/19/24 09/19/24 07:41 08:35 11:29 WBC RBC Hgb Hct MCV MCH MCHC RDW Plt Count MPV PT INR APTT Fibrinogen Puncture Site Left radial Right radial ABG pH 7.297 L* 7.351 ABG pCO2 48.7 H 37.4 ABG pO2 65.7 L 114.9 H ABG PO2/FiO2 Ratio 2.19 3.28 ABG HCO3 23.3 20.2 L ABG O2 Saturation 90.7 L 98.0 ABG O2 Content 12.2 L 12.8 L ABG Base Excess -3.2 -4.9 A-a Gradient 91.0 91.2 Oxyhemoglobin 92.1 98.0 Total Hemoglobin 9.4 L 9.1 L O2 Delivery Device Bipap Bipap O2 Liters/Min Not Reportable Not Reportable FiO2 30 35 Expiratory Pressure 6 6 Inspiratory Pressure 12 12 Sodium Potassium Chloride Carbon Dioxide Anion Gap BUN Creatinine Estim Creat Clear Calc Estimated GFR Glucose POC Capillary Glucose 158 H Calcium Total Bilirubin AST ALT Alkaline Phosphatase Total Protein Albumin 09/19/24 09/19/24 12:25 13:57 WBC RBC Hgb Hct MCV MCH MCHC RDW Plt Count MPV PT 16.9 H INR 1.4 APTT 43.1 H Fibrinogen Puncture Site ABG pH ABG pCO2 ABG pO2 ABG PO2/FiO2 Ratio ABG HCO3 ABG O2 Saturation ABG O2 Content ABG Base Excess A-a Gradient Oxyhemoglobin Total Hemoglobin O2 Delivery Device O2 Liters/Min FiO2 Expiratory Pressure Inspiratory Pressure Sodium Potassium Chloride Carbon Dioxide Anion Gap BUN Creatinine Estim Creat Clear Calc Estimated GFR Glucose POC Capillary Glucose 192 H Calcium Total Bilirubin AST ALT Alkaline Phosphatase Total Protein Albumin Quality VTE Prophylaxis VTE prophylaxis: pharmacologic ordered
--- NOTE | 2024-09-19 17:19 | CY_PTH ---
PATIENT: David Wei LOC: [id number] U#:[id number] AGE/SX: 83/M ROOM: 305 RE09/10/[address]: Fortino Lemus MD : 1940 BED: 02 DIS: 09/30/2024 SPEC #: [id number] RECD: 09/20/24 07:47 STATUS: [place] REQ #: [id number] CHANELLE: 09/19/24 17:[address]: Robinson Jama DEPT: [facility] Cytology RECD BY: Kim Gray ENTERED: 09/20/24 07:48 SP TYPE: Cytology OTHR DR: MD Kraig Meadows, MD Nixon Copeland MD Tissues: A - CSF Procedures: Cytopathology Cytospin
[2024-09-19 18:01] LABS: Glucose Point of Care 223 mg/dl (65-105)
[2024-09-19] MEDS: FUROSEMIDE INJ 40 MG/4 ML VIAL IV PUSH (18:20)
[2024-09-19] MEDS: ACYCLOVIR SODIUM IVPB 900 MG in DEXTROSE 5% IN WATER 250 ML 250 MG IVPB (18:20)
[2024-09-19 18:37] LABS: Glucose CSF 113 mg/dL (40-70)
[2024-09-19 18:59] LABS: Total Protein CSF 376 mg/dL (12-60)
[2024-09-19 19:54] LABS: Glucose Point of Care 269 mg/dl (65-105)
[2024-09-19] MEDS: MIDODRINE HCL 10 MG TABLET PO (20:01)
[2024-09-19] MEDS: DORZOLAMIDE/TIMOLOL OPHTH SOL 10 ML BOTTLE 1 DROP EACH EYE (20:33)
[2024-09-19 20:34] LABS: Appearance CSF Clear (Clear); CSF source CSF; Color CSF Colorless (Colorless); Lymphocytes CSF 51 % (40-80); Monocytes CSF 39 % (15-45); Neutrophils CSF 10 % (0-6); Nucleated Cell CSF 6 /uL (0-5); Red Blood Cell CSF 0 (0-2)
[2024-09-19] MEDS: INSULIN ASPART (*BKC) 100 UNITS/ML SUB-Q (20:34)
[2024-09-19] MEDS: ALBUMIN HUMAN 25% 25 GM/100 ML 200 ML IVPB (22:05)
--- NOTE | 2024-09-19 23:10 | PM.EVENT ---
Event Note Event Note Event Note: 09/19/2024 approximately 23:00 Nursing staff had called the BENIGNO Buck when patient developed hypotension. She the patient's blood pressures worse she was 87/41. Patient was given a dose of midodrine and blood pressure had the decreased again down to 79/47 she is not quite an hour later. Nursing staff tells me the patient has had issues with intermittent hypotension during his hospitalization has been transferred between the ICU IMU in medical floor throughout the course of his stay. He has not required any pressors during his hospital stay. He did have some borderline low blood pressures yesterday with a dose of Lasix. He had received a 20 mg dose of Lasix just prior to shift change. He is subsequently a dose of albumin was ordered. I went and re-evaluated the patient about 40 minutes into albumin infusion and the patient is blood pressures had improved back up to the 88/44 range she is on bilateral arms. I suspect the drop in blood pressure was due to diuresis/hypovolemia. Patient is also on BiPAP which was initiated this morning due to acute hypercapnic respiratory failure with pH 7.22 and pCO2 of 55. Repeat ABG around noon was 7.35 with pCO2 of 35. The patient's mental status had improved. Nursing staff states that the patient has been more somnolent this evening but did wake up around shift change to drink a part of in Ensure. Patient is restless and intermittently trying to pull off the BiPAP earlier but currently seems to be tolerating BiPAP. Will repeat ABG due to increased somnolence. Will continue albumin every 4 hours overnight then re-evaluate. The patient is awaiting transfer to [place] where he has established care. 30 minute spent in critical care activities. Due to a high probability of clinically significant, life threatening deterioration, the patient required my highest level of preparedness to intervene emergently and I personally spent this critical care time directly and personally managing the patient. This critical care time included obtaining a history; examining the patient; pulse oximetry; ordering and review of studies; arranging urgent treatment with development of a management plan; evaluation of patient's response to treatment; frequent reassessment; and discussions with other providers. It was exclusive of separately billable procedures and treating other patients and teaching time. Please see Assessment and Plan section and the rest of the note for further information on patient assessment and treatment.
[2024-09-19 23:53] LABS: Alveolar/Arterial O2 Gradient 98.7 mmHg; Base Excess ABG -7.7 mEq/l (+/-2.0); Fractional Inspired Oxygen 35 %; HCO3 ABG 19.5 mEq/l (22.0-26.0); Oxygen Content ABG 12.2 %vol (16.0-22.0); Oxygen Saturation ABG 95.9 % (95.0-100.0); Oxyhemoglobin 96.2 % THb (90.0-100.0); PO2 ABG 95.1 mmHg (80.0-100.0); PO2 FiO2 Ratio Arterial Blood 2.72 %; Total Hemoglobin 8.9 g/dL (12.0-18.0)
[2024-09-20] VITALS (25 sets, daily range): BP systolic 90–128; BP diastolic 31–76; PULSE 65–99; RESP 18–30; TEMP 35.7–36.4; O2SAT 95–100
[2024-09-20 00:03] LABS: Device BIPAP; Modified Allen's Test Pass; Site Drawn LEFT RADIAL; pH ABG 7.227 (7.350-7.450)
[2024-09-20 00:04] LABS: Expiratory Pressure 6 cmH2O; Inspiratory Pressure 16 cmH2O
[2024-09-20] MEDS: ALBUMIN HUMAN 25% 25 GM/100 ML 200 ML IVPB (00:39)
[2024-09-20] MEDS: methylPREDNISolone SOD SUCC 40 MG VIAL IV PUSH ×5 (00:43→23:57)
[2024-09-20] MEDS: VANCOMYCIN 1,500 MG/NS 500 ML 1,500 MG/500 ML BAG 250 MG IVPB (01:21)
[2024-09-20] MEDS: IPRATROPIUM 0.5 MG/ALBUTEROL SULFATE 2.5 MG AMPUL.NEB 3 ML INHALATION ×4 (01:37→20:16)
[2024-09-20 02:29] LABS: Phosphorus 5.7 mg/dL (2.5-4.5)
[2024-09-20 02:30] LABS: Lactic Acid Reflex 0.9 mmol/L (0.7-2.0)
[2024-09-20 02:37] LABS: Alanine Aminotransferase 9 U/L (6-50); Albumin Level 3.6 g/dL (3.5-5.1); Alkaline Phosphatase 61 U/L (38-126); Anion Gap 19 mmol/L (4-12); Aspartate Amino Transferase 28 U/L (17-59); Bilirubin,Total 0.3 mg/dL (0.2-1.3); Blood Urea Nitrogen 45 mg/dL (9-20); Calcium 8.9 mg/dL (8.4-10.2); Carbon Dioxide 15 mmol/L (22-30); Chloride 103 mmol/L (98-107); Estimated CRCL calculation 16 ml/min; Estimated Glomerular Filt Rate 17; Glucose 302 mg/dL (65-110); Magnesium 1.5 mg/dL (1.6-2.3); Potassium 3.9 mmol/L (3.4-5.0); Sodium 137 mmol/L (137-145); Total Protein 5.8 g/dL (6.3-8.2)
[2024-09-20 03:23] LABS: Basophils Percent Auto 0.2 % (0.2-1.2); Hematocrit 23.8 % (42.0-52.0); Immature Granulocyte Absolute 0.06 K/mm3 (0.00-0.031); Immature Granulocyte Percent A 0.6 % (0-0.5); Lymphocytes Absolute Auto 0.69 K/mm3 (0.9-3.2); Lymphocytes Percent Auto 6.9 % (18.3-44.2); Mean Corpuscular Hemoglobin 25.3 pg (26-34); Mean Corpuscular Volume 87.2 fl (80-100); Mean Platelet Volume 9.1 fl (7.4-10.4); Monocytes Absolute Auto 0.3 K/mm3 (0.1-0.6); Monocytes Percent Auto 2.5 % (2.6-8.5); Neutrophils Percent Auto 89.8 % (45.5-73.1); Nucleated Red Blood Cells Perc 0.2 % (0.0-0.2); Platelet Count Result 440 k/mm3 (150-375); Red Blood Count 2.73 M/mm3 (4.6-6.20); Red Cell Distribution Width 16.6 % (11.5-14.5)
--- NOTE | 2024-09-20 03:30 | ECG_ITS ---
Test Date: 2024-09-20 03:40:37 Measurements Intervals [place] Rate: 85 P: 0 FL: 0 QRS: 3 QRSD: 102 T: 0 QT: 393 QTc: 468 Interpretive Statements ATRIAL FIBRILLATION WITH ABERRANT CONDUCTION OR VENTRICULAR PREMATURE COMPLEXES LOW QRS VOLTAGE IN LIMB LEADS MINIMAL Q WAVES- INFERIOR LEADS BORDERLINE T WAVE ABNORMALITY- INFERIOR LEADS BASELINE ARTIFACT- I, III, AVR, AVL, AVF ABNORMAL ECG Compared to ECG 08/29/2024 15:01:45 HEART RATE HAS DECREASED Electronically Signed On 09-20-2024 06:07:29 CDT by Usman Cochran D.O.
[2024-09-20 03:37] LABS: Hemoglobin 6.9 g/dL (14.0-18.0)
[2024-09-20 03:38] LABS: Band Neutrophils Percent 0 % (0-6); Platelet Estimate Slightly Increased (Adequate)
[2024-09-20 03:40] LABS: Hypochromasia 1+; Ovalocytes 1+; Schistocytes None Seen
[2024-09-20] MEDS: MAGNESIUM SULF 4 GM/WATER100ML 4 GM/100 ML BAG IVPB (03:52)
[2024-09-20] MEDS: POTASSIUM CHLORIDE INJ 40 MEQ in SODIUM CHLORIDE 0.9% IV 500 ML 130 MEQ IVPB (04:40)
[2024-09-20] MEDS: AMPICILLIN 2 GM/NS 100 ML 2 GM/100 ML BAG IVPB ×3 (05:01→22:40)
[2024-09-20 07:49] LABS: Glucose Point of Care 298 mg/dl (65-105)
[2024-09-20] MEDS: INSULIN ASPART (*BKC) 100 UNITS/ML SUB-Q ×4 (09:05→23:57)
[2024-09-20] MEDS: cefTRIAXone 2 GM/NS 100 ML 2 GM/100 ML BAG IVPB ×2 (09:06→20:32)
--- NOTE | 2024-09-20 09:30 | PCPTNOTE ---
The patient treatment was not able to be completed on 09/20/2024. Per RN patient not appropriate for therapy at this time, unable to participate. Will plan to continue treatment per plan of care.
[2024-09-20 11:54] LABS: Glucose Point of Care 326 mg/dl (65-105)
[2024-09-20] MEDS: ATORVASTATIN 40 MG TABLET PO (12:22)
[2024-09-20] MEDS: PANTOPRAZOLE 40 MG TABLET PO (12:22)
[2024-09-20] MEDS: ASPIRIN 81 MG ENTERIC TABLET PO (12:22)
[2024-09-20] MEDS: DORZOLAMIDE/TIMOLOL OPHTH SOL 10 ML BOTTLE 1 DROP EACH EYE ×2 (12:23→20:31)
--- NOTE | 2024-09-20 13:08 | PCOTNOTE ---
Per RN, Patient is unable and not appropriate at this time for therapy services this date. RN states he is a hold for today, keep checking in, he will need it when he is able.
--- NOTE | 2024-09-20 14:00 | P.PNIM_ITS ---
Progress Note: A&P Assessment and Plan (1) Febrile illness: Code(s): R50.9 - Fever, unspecified Status: Acute Assessment and Plan: 09/09: Patient presented with fevers, weakness, hypotension -UA was not reflective of UTI -CT Ch/A/P without contrast demonstrating right pleural effusion, slightly dilated esophagus, bilateral renal cyst,. Bilateral fat containing inguinal hernias and small fat containing umbilical hernia. -09/09: BCx NGTD MRSA nasal swab negative. COVID, influenza and RSV PCR negative. Started on cefepime and vancomycin (09/09) but vanco stopped on 09/11. Venous duplex negative for DVT. CXR with new opacities of the right lower lung zone which could represent atelectasis or pneumonia with small right pleural effusion. Repeat BCx 09/12 NGTD CRP 8 -> 27. WBC higher at 12K. But fever curve better. Patient feels better. Continue Cefepime for now. add flagyl for anaerobic coverage 09/14/24. recheck mrsa positive. will add linezolid TTE with no signifciant findings. Hx of aspiration PNA so will have speech therapy evaluate. Consider BERNA to exclude endocarditis but felt unlikely with negative BCx. does not meet's Carnes's criteria. on ceftriaxone,ampicillin ,vancomycin and acyclovir due to possible meningitis Will repeat PT/PTT/INR Lactic acid is normal CRP and ESR is elevated. Possible source of infection UTI s/p Lumbar puncture and CSF showed elevated elevated WBC and protein continue above Anti-infectives monitor (2) Sepsis: Code(s): A41.9 - Sepsis, unspecified organism Status: Acute Assessment and Plan: Patient was hypotensive in the ER, received 30 cc/kg IV fluids and central line was inserted Levophed started but able to be weaned off Blood pressures stable Continue antibiotics as above (3) Chronic kidney disease, stage 3: Code(s): N18.30 - Chronic kidney disease, stage 3 unspecified Status: Acute Assessment and Plan: Patient with history of CKD (baseline 2.50-3.26) On admission creatinine was 2.37. -patient did diurese well as he was volume overloaded and congested -received albumin -urine output has been adequate Cr stable at 2.4, 3.41 today -continue to monitor renal function, electrolytes and urine output Nephrology consulted (4) Chronic obstructive pulmonary disease: Code(s): J44.9 - Chronic obstructive pulmonary disease, unspecified Status: Acute Assessment and Plan: No wheezing appreciated. Continue neb treatments. Continue home Spiriva now on 3 liters oxygen conitnue nighttime BiPAP (5) A-fib: Code(s): I48.91 - Unspecified atrial fibrillation Status: Acute Assessment and Plan: History of AFib -on carvedilol at home -will hold for now as patient's BP still soft -heart rate is controlled for now Not on anticoagulation at home due to history of bleeding gastric ulcer. His last EGD 3-4 years ago (6) Hypertension: Code(s): I10 - Essential (primary) hypertension Status: Chronic Assessment and Plan: Patient on Coreg, lisinopril and chlorthalidone at home. titrate home meds with clinical course (7) Type 2 diabetes mellitus: Code(s): E11.9 - Type 2 diabetes mellitus without complications Status: Chronic Assessment and Plan: Glucose remains well controlled. Continue AccuCheks covering with sliding scale. Hypoglycemia protocol available as needed. Resume home lantus and aspart when able (8) Renal mass: Code(s): N28.89 - Other specified disorders of kidney and ureter Status: Acute Assessment and Plan: Incidental finding by CT showing a left upper pole cyst measuring 2.9 cm. Exophytic cyst is seen in the right kidney midpole measuring 3 cm. Tiny hypodense lesion seen in the right kidney lower pole most likely hemorrhagic cyst. Tiny mass cannot be excluded. Follow-up advised. awaiting transfer to [facility] for oncology eval and treat (9) Slurred speech: Code(s): R47.81 - Slurred speech Status: Acute Assessment and Plan: Noticed some slurred speech 09/14/24 Brain MRI:1. 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 No acute intracranial process. 2. Age-related changes including mild diffuse volume loss and mild scattered nonspecific white matter T2 hyperintensity consistent with chronic small vessel ischemic disease. Echocardiogram was performed on 08/30/2024 which shows moderate aortic stenosis Carotid Doppler:Mildly elevated velocity in the right internal carotid artery suggests moderate (50-69%) stenosis, though noted significant plaque clearly evident. Antegrade flow in the bilateral vertebral arteries. Following Neurology recommendation Order LP studies Started on ceftriaxone, ampicillin, Acyclovir and vancomycin Neuro check q.[address] head today 09/19 negative Plan Acute hypoxemic hypercapnic respiratory failure likely from bronchospasm and CHF ECHO showed diastolic dysfunction CT chest showed bilateral pleural effusion s/p BiPAP on NC oxygen continue BiPAP at night Diuresis on hold as patient was given 40mg IV yesterday and Creatinine worsened Nephrology consulted Hypomagnesemia Mg 1.5 replaced Anemia Hb 6.8 received 1 unit pRBC repeat H and H, monitor At the request of , she wanted to transfer the [facility] for continuity of care. Awaiting transfer to [facility] DVT prophylaxis: Lovenox Code Status: Full code Patulous esophagus with reflux esophagitis: likely etiology for aspiration pneumonia. Code Status: Full code Subjective Date/time seen: 09/20/24 14:00 Interval history: Comfortable at bedside and confused Review of Systems Review of Systems: All systems reviewed & are unremarkable except as noted in HPI and below Exam Narrative: Gen - NARD lying semi-recumbent in bed Chest - bronchial BS. no egophony. nml RR CV - irregular with 2/6 systolic heard t/o the precordium Abd - Soft, NT/ND, Positive BS Ext - No pedal edema. Right femoral central line in place. Neuro: Unable to follow command, no focal deficits noted, no facial asymmetry Psych - Nml mood and affect Skin - Warm and dry Const: Other: Lethargic, A&O x1, warm to touch HENMT: Mouth: Yes dry mucous membranes Eyes: Pupils: Equal, round and reactive pupils present Neck: Neck: supple Resp: Effort & Inspection: normal respiratory effort Auscultation: clear to auscultation bilaterally Cardio: Rate: regular rate Rhythm: regular rhythm Heart sounds: Murmur heart sound present (Systolic murmur) GI: Inspection: non-distended : General: Yes bladder normal to palpation Neuro: Cranial nerves: Yes Equal, round and reactive pupils present Motor exam (neuro): 5/5 motor strength present throughout Sensory Exam: normal sensation Extrem: General: no edema Objective Data Vital Signs Vital Signs: Vital Signs - 24 hr 09/19/24 16:00 09/19/24 16:00 09/19/24 16:50 Temperature 97.6 F Pulse Rate 90 93 Respiratory Rate 20 Blood Pressure 98/53 L 97/48 L Pulse Oximetry 96 Oxygen Delivery Oxygen Flow Rate Fraction of Inspired Oxygen 09/19/24 16:50 09/19/24 17:41 09/19/24 17:42 Temperature Pulse Rate 87 105 H Respiratory Rate 18 20 Blood Pressure 109/45 L 104/61 110/56 L Pulse Oximetry 99 96 Oxygen Delivery Oxygen Flow Rate Fraction of Inspired Oxygen 09/19/24 17:54 09/19/24 18:00 09/19/24 19:57 Temperature 97.6 F Pulse Rate 87 95 87 Respiratory Rate 18 Blood Pressure 136/99 H 88/38 L Pulse Oximetry 96 96 Oxygen Delivery Oxygen Flow Rate Fraction of Inspired Oxygen 09/19/24 19:59 09/19/24 20:00 09/19/24 20:00 Temperature Pulse Rate 102 H 98 Respiratory Rate 21 H Blood Pressure Pulse Oximetry 93 Oxygen Delivery Nasal Cannula Oxygen Flow Rate 2 Fraction of Inspired Oxygen 09/19/24 20:14 09/19/24 20:27 09/19/24 21:15 Temperature Pulse Rate 102 H 90 Respiratory Rate 21 H 20 Blood Pressure 87/41 L Pulse Oximetry 95 Oxygen Delivery BiPAP Oxygen Flow Rate Fraction of Inspired Oxygen 09/19/24 22:00 09/19/24 22:00 09/19/24 22:42 Temperature Pulse Rate 86 89 82 Respiratory Rate 20 22 H Blood Pressure 79/47 L Pulse Oximetry 93 96 Oxygen Delivery BiPAP Oxygen Flow Rate Fraction of Inspired Oxygen 09/19/24 23:00 09/20/24 00:00 09/20/24 00:00 Temperature 96.3 F L Pulse Rate 85 Respiratory Rate 20 Blood Pressure 86/44 L 96/31 L Pulse Oximetry 98 97 Oxygen Delivery BiPAP Oxygen Flow Rate Fraction of Inspired Oxygen 35 09/20/24 00:00 09/20/24 00:10 09/20/24 01:37 Temperature Pulse Rate 75 93 Respiratory Rate 27 H Blood Pressure Pulse Oximetry Oxygen Delivery BiPAP Oxygen Flow Rate Fraction of Inspired Oxygen 09/20/24 02:00 09/20/24 02:00 09/20/24 04:00 Temperature 96.9 F L Pulse Rate 85 85 Respiratory Rate 23 H Blood Pressure 90/42 L Pulse Oximetry 95 97 Oxygen Delivery Nasal Cannula Oxygen Flow Rate 2 Fraction of Inspired Oxygen 09/20/24 04:00 09/20/24 04:14 09/20/24 04:31 Temperature 97.0 F L Pulse Rate 85 99 84 Respiratory Rate 30 H 20 Blood Pressure 128/76 Pulse Oximetry 100 97 Oxygen Delivery Nasal Cannula Oxygen Flow Rate 4 Fraction of Inspired Oxygen 36 09/20/24 06:00 09/20/24 06:00 09/20/24 07:30 Temperature 97.5 F L Pulse Rate 86 91 Respiratory Rate 22 H Blood Pressure 109/53 L Pulse Oximetry 97 96 Oxygen Delivery Nasal Cannula Oxygen Flow Rate 2 Fraction of Inspired Oxygen 09/20/24 07:30 09/20/24 07:37 09/20/24 07:55 Temperature 97.5 F L Pulse Rate 90 90 90 Respiratory Rate 24 H 22 H 29 H Blood Pressure 108/58 L Pulse Oximetry 96 95 Oxygen Delivery BiPAP Oxygen Flow Rate Fraction of Inspired Oxygen 09/20/24 10:00 09/20/24 12:00 09/20/24 13:48 Temperature 97.6 F 97.6 F Pulse Rate 83 91 82 Respiratory Rate 30 H 28 H 24 H Blood Pressure 106/57 L 124/71 Pulse Oximetry 98 99 Oxygen Delivery Oxygen Flow Rate Fraction of Inspired Oxygen 09/20/24 13:51 Temperature Pulse Rate 75 Respiratory Rate 24 H Blood Pressure Pulse Oximetry 95 Oxygen Delivery BiPAP Oxygen Flow Rate Fraction of Inspired Oxygen Intake/Output Intake/Output: Intake & Output 09/17/24 09/18/24 09/19/24 09/20/24 23:59 23:59 23:59 23:59 Intake Total 1260 1865 1740 394 Output Total 500 550 900 100 Balance 760 1315 840 294 Meds/Results Medications: Active Medications Generic Name Dose Route Start Last Admin Trade Name Freq PRN Reason Stop Dose Admin Acetaminophen 650 mg 09/10/24 00:24 09/14/24 05:16 Acetaminophen 325 Mg Tablet PO 650 mg Q4H PRN Administration Mild Pain (1-3) or Fever Albuterol/Ipratropium 3 ml 09/19/24 20:00 09/20/24 13:47 Ipratropium 0.5 Mg/Albuterol Sulfate 2.5 Mg Ampul.Neb 3 Ml INHALATION 3 ml Q6HRT PJ Administration Aspirin 81 mg 09/15/24 09:00 09/20/24 12:22 Aspirin 81 Mg Enteric Tablet PO 81 mg QAM PJ Administration Atorvastatin Calcium 40 mg 09/15/24 09:00 09/20/24 12:22 Atorvastatin 40 Mg Tablet PO 40 mg DAILY PJ Administration Dextrose 12.5 gm 09/10/24 09:20 Dextrose 50% 25 Gm/50 Ml Syringe IV PUSH PRN PRN Hypoglycemia Protocol Dorzolamide/Timolol 1 drop 09/13/24 09:40 09/20/24 12:23 Dorzolamide/Timolol Ophth Sarah 10 Ml Bottle EACH EYE 1 drop Q12HR PJ Administration Enoxaparin Sodium 30 mg 09/11/24 09:00 09/18/24 09:42 Enoxaparin 30 Mg/0.3 Ml Syringe SUB-Q 30 mg DAILY PJ Administration Glucagon 1 mg 09/10/24 09:20 Glucagon For Inj 1 Mg Vial IM PRN PRN Hypoglycemia Protocol Glucose 15 gm 09/10/24 09:20 Glucose Oral Gel 15 Gm Of Glucse In 37.5 Gm Tube PO PRN PRN Hypoglycemia Protocol Dextrose 1,000 mls @ 100 mls/hr 09/10/24 09:20 Dextrose 5% 1,000 Ml IVPB PRN PRN Hypoglycemia Protocol Ceftriaxone Sodium 2 gm in 100 mls @ 200 mls/hr 09/18/24 12:45 09/20/24 09:06 Rocephin 2 Gm/Ns 100 Ml IVPB 200 mls/hr Q12HR PJ Administration Vancomycin HCl 1,500 mg in 500 mls @ 250 mls/hr 09/20/24 02:00 09/20/24 01:21 Vancomycin 1,500 Mg/Ns 500 Ml IVPB 250 mls/hr Q36H PJ Administration Ampicillin Sodium 2 gm in 100 mls @ 200 mls/hr 09/18/24 14:00 09/20/24 05:01 Ampicillin 2 Gm/Ns 100 Ml IVPB 200 mls/hr Q8HR PJ Administration Sodium Chloride 1,000 mls @ 75 mls/hr 09/18/24 17:05 09/19/24 08:02 Normal Saline Iv IV CONT Infused .[id number] PJ Infusion Acyclovir Sodium 900 mg/ 268 mls @ 249.625 mls/hr 09/18/24 18:00 09/19/24 18:20 Dextrose IVPB 250 mls/hr Q24H PJ Administration Insulin Aspart 1 - 3 units 09/10/24 21:00 09/19/24 20:34 Insulin Aspart (*Bkc) 100 Units/Ml SUB-Q 2 units HS PJ Administration Protocol Insulin Aspart 3 - 6 units 09/10/24 12:00 09/20/24 12:23 Insulin Aspart (*Bkc) 100 Units/Ml SUB-Q 5 units TIDWM PJ Administration Protocol Methylprednisolone Sodium Succinate 40 mg 09/19/24 06:05 09/20/24 12:23 Methylprednisolone Sod Succ 40 Mg Vial IV PUSH 40 mg Q6HR PJ Administration Mirtazapine 7.5 mg 09/13/24 09:50 09/14/24 09:00 Mirtazapine 7.5 Mg Tablet PO 7.5 mg DAILY PJ Administration Ondansetron HCl 4 mg 09/10/24 00:24 09/10/24 13:19 Ondansetron Inj 4 Mg/2 Ml Vial IV PUSH 4 mg Q4H PRN Administration Nausea Pantoprazole Sodium 40 mg 09/11/24 09:00 09/20/24 12:22 Pantoprazole 40 Mg Tablet PO 40 mg QAM PJ Administration Sodium Chloride 20 ml 09/11/24 08:00 Central Line Flush IV PUSH PRN PRN after blood draws Umeclidinium [place] 1 puff 09/10/24 09:00 09/19/24 08:22 Umeclidinium [place] 62.5 Mcg Ellipta INHALATION Not Given DAILY [facility] Radiology Results: ITS Impressions Chest/Abdomen/Pelvis CT 09/09/24 21:59 IMPRESSION: CHEST: 1. Right pleural effusion. 2. No other definite acute cardiopulmonary pathology seen. 3. Slightly dilated esophagus which may indicate reflux esophagitis. ABDOMEN/PELVIS: 1. No evidence of appendicitis, diverticulitis or intestinal obstruction. 2. Bilateral renal cysts with small density in the right kidney lower pole. Follow-up advised. 3. Bilateral fat containing inguinal hernias. Small fat-containing umbilical hernia. Venous Doppler Study 09/11/24 10:07 IMPRESSION: 1: No lower extremity deep venous thrombosis. Chest CT 09/15/24 05:40 Impression: [id number] bilateral pleural effusions with probable minimal interstitial edema and minimal bibasilar atelectatic change. Carotid Doppler Study 09/15/24 05:43 Impression: Mildly elevated velocity in the right internal carotid artery suggests moderate (50-69%) stenosis, though noted significant plaque clearly evident. Antegrade flow in the bilateral vertebral arteries. Note: The methodology used is an indirect measurement validated against a direct method (such as the NASCET criteria) that compares diameters at the stenosis to the distal ICA. Brain MRI 09/15/24 15:43 IMPRESSION: 1. 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 No acute intracranial process. 2. Age-related changes including mild diffuse volume loss and mild scattered nonspecific white matter T2 hyperintensity consistent with chronic small vessel ischemic disease. Modified Barium Swallow 09/16/24 13:13 IMPRESSION: Patient tolerated regular consistency oral feedings in the upright position. Please correlate with speech pathologist findings and specific feeding recommendations. Chest/Abdomen CT 09/16/24 13:52 IMPRESSION: 1. Unchanged small bilateral posterior layering pleural effusions with dependent atelectasis in both lungs. No pulmonary edema or pneumonia in the aerated portions of the lungs. Chest X-Ray 09/19/24 12:26 IMPRESSION: 1. Unchanged small bilateral pleural effusions with associated mild bibasilar atelectasis. Head CT 09/19/24 16:37 IMPRESSION: No acute intracranial findings. Lumbar Puncture Fluoroscopy 09/19/24 17:48 IMPRESSION: 1. Successful fluoro-guided lumbar puncture with normal opening pressure of 18 cm water which yielded only 2.5 mm of clear CSF. Labs Labs: Laboratory Results - last 24 hr 09/19/24 09/19/24 09/19/24 13:57 17:13 17:40 WBC RBC Hgb Hct MCV MCH MCHC RDW Plt Count MPV Immature Gran % (Auto) Neut % (Auto) Lymph % (Auto) [place] % (Auto) Eos % (Auto) Baso % (Auto) Lymph # (Auto) [place] # (Auto) Eos # (Auto) Baso # (Auto) Abs Immat Gran (auto) Absolute Neuts (auto) Absolute Nucleated RBC Band Neutrophils % Nucleated RBC % Platelet Estimate Hypochromasia Ovalocytes Schistocytes PT 16.9 H INR 1.4 APTT 43.1 H Puncture Site ABG pH ABG pCO2 ABG pO2 ABG PO2/FiO2 Ratio ABG HCO3 ABG O2 Saturation ABG O2 Content ABG Base Excess A-a Gradient Oxyhemoglobin Total Hemoglobin O2 Delivery Device O2 Liters/Min FiO2 Expiratory Pressure Inspiratory Pressure Sodium Potassium Chloride Carbon Dioxide Anion Gap BUN Creatinine Estim Creat Clear Calc Estimated GFR Glucose POC Capillary Glucose 223 H Lactic Acid Calcium Phosphorus Magnesium Total Bilirubin AST ALT Alkaline Phosphatase Total Protein Albumin CSF Source Csf CSF Appearance Clear CSF Color Colorless CSF RBC 0 CSF Tot Nucleated Cells 6 H CSF Neutrophils 10 H CSF Lymphocytes 51 CSF Monocytes 39 CSF Glucose 113 H CSF Total Protein 376 H Herpes Virus Source Cancelled Herpes Simplex Culture Cancelled HSV I Cancelled Herpes Simplex Virus II Cancelled Blood Type Antibody Screen PRATIK, IgG Interpret PRATIK, Poly Interpret PRATIK, Complement Interp Crossmatch 09/19/24 09/19/24 09/20/24 19:51 23:40 02:04 WBC RBC Hgb Hct MCV MCH MCHC RDW Plt Count MPV Immature Gran % (Auto) Neut % (Auto) Lymph % (Auto) [place] % (Auto) Eos % (Auto) Baso % (Auto) Lymph # (Auto) [place] # (Auto) Eos # (Auto) Baso # (Auto) Abs Immat Gran (auto) Absolute Neuts (auto) Absolute Nucleated RBC Band Neutrophils % Nucleated RBC % Platelet Estimate Hypochromasia Ovalocytes Schistocytes PT INR APTT Puncture Site Left radial ABG pH 7.227 L* ABG pCO2 48.0 H ABG pO2 95.1 ABG PO2/FiO2 Ratio 2.72 ABG HCO3 19.5 L ABG O2 Saturation 95.9 ABG O2 Content 12.2 L ABG Base Excess -7.7 A-a Gradient 98.7 Oxyhemoglobin 96.2 Total Hemoglobin 8.9 L O2 Delivery Device Bipap O2 Liters/Min Not Reportable FiO2 35 Expiratory Pressure 6 Inspiratory Pressure 16 Sodium 137 Potassium 3.9 Chloride 103 Carbon Dioxide 15 L Anion Gap 19 H BUN 45 H D Creatinine 3.41 H Estim Creat Clear Calc 16 Estimated GFR 17 L Glucose 302 H POC Capillary Glucose 269 H Lactic Acid 0.9 Calcium 8.9 Phosphorus 5.7 H Magnesium 1.5 L Total Bilirubin 0.3 AST 28 ALT 9 Alkaline Phosphatase 61 Total Protein 5.8 L Albumin 3.6 CSF Source CSF Appearance CSF Color CSF RBC CSF Tot Nucleated Cells CSF Neutrophils CSF Lymphocytes CSF Monocytes CSF Glucose CSF Total Protein Herpes Virus Source Herpes Simplex Culture HSV I Herpes Simplex Virus II Blood Type Antibody Screen PRATIK, IgG Interpret PRATIK, Poly Interpret PRATIK, Complement Interp Crossmatch 09/20/24 09/20/24 09/20/24 03:16 03:56 07:34 WBC 10.0 RBC 2.73 L Hgb 6.9 L* Hct 23.8 L MCV 87.2 MCH 25.3 L MCHC 29.0 L RDW 16.6 H Plt Count 440 H MPV 9.1 Immature Gran % (Auto) 0.6 H Neut % (Auto) 89.8 H Lymph % (Auto) 6.[address] [place] % (Auto) 2.5 L Eos % (Auto) 0.0 Baso % (Auto) 0.2 Lymph # (Auto) 0.[address] [place] # (Auto) 0.3 Eos # (Auto) 0.0 Baso # (Auto) 0.0 Abs Immat Gran (auto) 0.06 H Absolute Neuts (auto) 9.0 H Absolute Nucleated RBC 0.020 H Band Neutrophils % 0 Nucleated RBC % 0.2 Platelet Estimate Slightly increased Hypochromasia 1+ Ovalocytes 1+ Schistocytes None seen PT INR APTT Puncture Site ABG pH ABG pCO2 ABG pO2 ABG PO2/FiO2 Ratio ABG HCO3 ABG O2 Saturation ABG O2 Content ABG Base Excess A-a Gradient Oxyhemoglobin Total Hemoglobin O2 Delivery Device O2 Liters/Min FiO2 Expiratory Pressure Inspiratory Pressure Sodium Potassium Chloride Carbon Dioxide Anion Gap BUN Creatinine Estim Creat Clear Calc Estimated GFR Glucose POC Capillary Glucose 298 H Lactic Acid Calcium Phosphorus Magnesium Total Bilirubin AST ALT Alkaline Phosphatase Total Protein Albumin CSF Source CSF Appearance CSF Color CSF RBC CSF Tot Nucleated Cells CSF Neutrophils CSF Lymphocytes CSF Monocytes CSF Glucose CSF Total Protein Herpes Virus Source Herpes Simplex Culture HSV I Herpes Simplex Virus II Blood Type A Positive Antibody Screen Positive PRATIK, IgG Interpret 1+ PRATIK, Poly Interpret 1+ PRATIK, Complement Interp Negative Crossmatch See Detail 09/20/24 11:44 WBC RBC Hgb Hct MCV MCH MCHC RDW Plt Count MPV Immature Gran % (Auto) Neut % (Auto) Lymph % (Auto) [place] % (Auto) Eos % (Auto) Baso % (Auto) Lymph # (Auto) [place] # (Auto) Eos # (Auto) Baso # (Auto) Abs Immat Gran (auto) Absolute Neuts (auto) Absolute Nucleated RBC Band Neutrophils % Nucleated RBC % Platelet Estimate Hypochromasia Ovalocytes Schistocytes PT INR APTT Puncture Site ABG pH ABG pCO2 ABG pO2 ABG PO2/FiO2 Ratio ABG HCO3 ABG O2 Saturation ABG O2 Content ABG Base Excess A-a Gradient Oxyhemoglobin Total Hemoglobin O2 Delivery Device O2 Liters/Min FiO2 Expiratory Pressure Inspiratory Pressure Sodium Potassium Chloride Carbon Dioxide Anion Gap BUN Creatinine Estim Creat Clear Calc Estimated GFR Glucose POC Capillary Glucose 326 H Lactic Acid Calcium Phosphorus Magnesium Total Bilirubin AST ALT Alkaline Phosphatase Total Protein Albumin CSF Source CSF Appearance CSF Color CSF RBC CSF Tot Nucleated Cells CSF Neutrophils CSF Lymphocytes CSF Monocytes CSF Glucose CSF Total Protein Herpes Virus Source Herpes Simplex Culture HSV I Herpes Simplex Virus II Blood Type Antibody Screen PRATIK, IgG Interpret PRATIK, Poly Interpret PRATIK, Complement Interp Crossmatch Quality VTE Prophylaxis VTE prophylaxis: pharmacologic ordered
[2024-09-20 14:36] LABS: Alveolar/Arterial O2 Gradient 79.1 mmHg; Base Excess ABG -7.4 mEq/l (+/-2.0); Fractional Inspired Oxygen 35 %; HCO3 ABG 20.3 mEq/l (22.0-26.0); Oxygen Content ABG 12.1 %vol (16.0-22.0); Oxygen Saturation ABG 96.9 % (95.0-100.0); Oxyhemoglobin 97.2 % THb (90.0-100.0); PCO2 ABG 52.4 mmHg (35.0-45.0); PO2 ABG 109.5 mmHg (80.0-100.0); PO2 FiO2 Ratio Arterial Blood 3.13 %; Total Hemoglobin 8.7 g/dL (12.0-18.0)
[2024-09-20 14:40] LABS: Device BIPAP; Site Drawn LEFT RADIAL; pH ABG 7.206 (7.350-7.450)
--- NOTE | 2024-09-20 15:10 | PC.NURSE ---
0930- RN request MD to evaluate patient. Updated on p.m. events of hypotension and continued altered mentation. Patients has moments of being alert, but remains lethargic with bipap on. 1104- voicemail left with dr. nye to update on [facility] transfer center status. 1130- RN spoke with MD about [facility] transfer. [facility] transfer center requested the hospitalist to speak to [facility] oncology accepting physician to help navigate treatment plan or need for different admitting criteria while waiting for a bed.Dr. Nye said he will address. 1315- RN requesting update on patient plan whether [facility] transfer center has been spoken to. No orders have been received yet today. RN was told I have a lot of sick patients. I will call them when I am ready. 1443- RN attempted to call dr. nye and voicemail was full. RN called hospitalist office to alert of critical pH on ABGs. [place] will make aware. 1450- Dr. Ramsey arrives to floor. Bipap orders given to respiratory. updated and repeat ABGs ordered for 1700. [facility] transfer center updated on status. RN made aware patient has been made ICU status as of this morning for [facility].
--- NOTE | 2024-09-20 15:35 | P.CONNP_ITS ---
Assessment and Plan Assessment and plan (1) Acute kidney injury: Code(s): N17.9 - Acute kidney failure, unspecified Status: Acute Assessment and Plan: * admission creatinine was close to baseline (2.37mg/dl) * up to 3.41mg/dl currently (09/20/24) * suspect multifactorial etiology: * hypotension/shock on admission * sepsis/infection * insensible losses (high fevers on admission) * prerenal factors (poor oral/fluid intake prior to admission) * SARAH-I and chlorthalidone use prior to admission * other (?) * imaging CT A/P x 2 without evidence of obstruction * check urine studies and CPK * follow trend repeat labs and UOP (2) Stage 4 chronic kidney disease: Code(s): N18.4 - Chronic kidney disease, stage 4 (severe) Status: Chronic Assessment and Plan: * baseline creatinine runs ~ 1.9 - 2.3mg/dl since 2021 * however, has fluctuated to extremes with recent admissions/hospitalizations at [facility] in the last couple of months... * outpatient labs since 2024 show creatinine seems to be running closer to 2.2 - 2.7mg/dl * last outpatient creatinine was 2.66mg/dl on 07/18/24 * discharge creatinine from August 2024 hospitalization was 2.99mg/dl * may have baseline creatinine given recurrent hospitalizations....but could return back to baseline once acute medical issues are improving/resolving... * baseline CKD is secondary to HTN, diabetes, vascular disease, and age-related change * follows with [facility] (Dr. Lin Guerrero) (3) Febrile illness: Code(s): R50.9 - Fever, unspecified Status: Acute Assessment and Plan: * as noted on presenation * evaluation to date noted: * UA was not reflective of UTI * CT C/A/P without contrast demonstrating right pleural effusion, slightly dilated esophagus, bilateral renal cyst, bilateral fat containing inguinal hernias and small fat containing umbilical hernia * blood cultures (from 09/09 and 09/12) with no growth to date * viral swan for COVID/RSV/influenza negative * venous duplex negative for DVTs * TTE with no significant findings * last CXR with new opacities of the right lower lung zone which could represent atelectasis or pneumonia * s/p lumbar puncture and CSF showed elevated elevated WBC and protein * elevated CRP and WBC noted * on empiric antibiotic therapy (to cover for pneumoina and meningitis) * continue supportive therapy (4) Slurred speech: Code(s): R47.81 - Slurred speech Status: Acute Assessment and Plan: * apparently noted on 09/14/24 * evaluation noted: * Brain MRI -- small old lacunar infarct at the right subinsular white matter; no acute intracranial process; age-related changes including mild diffuse volume loss and mild scattered nonspecific white matter T2 hyperintensity consistent with chronic small vessel ischemic disease * Echocardiogram (08/30) -- moderate aortic stenosis * Carotid Doppler -- mildly elevated velocity in the right internal carotid artery suggests moderate (50-69%) stenosis, though noted significant plaque clearly evident; antegrade flow in the bilateral vertebral arteries * repeat CT of head (09/19) -- negative * LP studies noted (aee #3) * on antibiotic therapy for possible meningitis * follow mental status and neuro checks (5) Chronic obstructive pulmonary disease: Code(s): J44.9 - Chronic obstructive pulmonary disease, unspecified Status: Acute Assessment and Plan: * continue nebulizer treatments PRN * on home Spiriva * supplemental oxygen as needed * night time BiPAP therapy (6) A-fib: Code(s): I48.91 - Unspecified atrial fibrillation Status: Chronic Assessment and Plan: * known history * rate control strategy * was on carvedilol at home * resume as blood presssure allows * not on anticoagulation at home due to history of bleeding gastric ulcer. (7) Hypertension: Code(s): I10 - Essential (primary) hypertension Status: Chronic Assessment and Plan: * BP initially on hold due given hypotension on presentation * was on coreg, lisinopril and chlorthalidone at home... * resume as clinical course dictated * follow trend of hemodynamics (8) Type 2 diabetes mellitus: Code(s): E11.9 - Type 2 diabetes mellitus without complications Status: Chronic Assessment and Plan: * follow accu-cheks * glycemic control per hospitalist Will continue to follow. L History of Present Illness Reason for Consult Consult date: 09/20/24 Reason for consult: acute renal failure (on chronic kidney disease) Chief Complaint Chief complaint: Persistent hypotension, recent aspiration pneumoni History of Present Illness Narrative: A great majority of the history that I have obtained is from review of the electronic medical records and discussion with the physicians/nurses involved in the patient's care as patient is unable to provide any history at this time due to his fluctuating mental status and lethargy. The patient is an 83-year-old male a past medical history as outlined who presented to [facility] with complaints of generalized weakness and fatigue. Patient was just discharged from [facility] on 09/05 -- he was treated for possible aspiration pneumonia (treated with IV antibiotics and was transition to oral antibiotics on discharge), COPD exacerbation with a short course of steroids, along with GABRIELA on CKD with his creatinine slowly improving by the time of discharge. Along with his fatigue and weakness, the patient also report shortness of breath in association with fevers. He also states that he feels quite thirsty. He was only at his SNF for a day or two before these symptoms presented themselves. Given his somewhat complex medical history in conjunction with his multiple hospitalizations since the beginning of this year, he was sent to the ER for for further assessment. Evaluation in the ER noted a temperature of 101.2? F with an initial blood pressure 106/52, however his BP started to drop drop shortly after to as low as 79/47 which improved after IVF bolus therapy. His oxygen saturations were 98% on room air and his eart rate in the 80s. Routine labs demonstrated a white blood cell count initially 11.6 coming down to 9.0, hemoglobin 9.1, platelet count 601, INR 1.2, sodium 133, potassium 3.6, BUN 35, serum creatinine 2.37, magnesium 1.4, albumin low at 2.4, calcium low at 7.3 with corrected calcium 8.2 with a urinalysis that was unremarkable. His viral screen was negative as well. A CT chest abdomen and pelvis without contrast demonstrated a right pleural effusion, slightly dilated esophagus, and bilateral renal cyst, along with bilateral fat containing inguinal hernias and small fat containing umbilical hernia. Once his blood pressure stabilized with IVFs, he was started on broad spectrum antibiotics due to concerns of sepsis after appropriate cultures were obtained. He was subsequently transferred to the ICU after a central line was placed but he did not require initiation of vasopressor therapy. Since his admission, he was briefly on vasopressor therapy but was quickly weaned off. He has undergone extensive workup and evaluation for infection given his sepsis like picture and given his fluctuating mental status, there was concern for possible PARACHUTE PANEL [employer]ER infection and he remains on broad-spectrum IV antibiotic therapy for this issue. His been noted that his renal function has been fluctuating as well. Renal consultation was requested due to his acute kidney injury/acute renal failure on top of his baseline chronic kidney disease. The patient normally follows with [facility] for management of his chronic kidney disease. From review of the records via [facility], his baseline creatinine normally runs around 1.9 - 2.3 mg/dL since 2021 causing him to fluctuate between CKD stage IIIB and stage IV. The presumed etiology of his chronic kidney disease is diabetes, hypertension, vascular disease, and age-related change. However, given his recent hospitalizations since the beginning of this year (2024), his renal function/creatinine has been fluctuating more although usually returns to baseline by the time hospital discharge. By his outpatient labs, his creatinine in April 2024 was 2.2 mg/dL, subsequently 2.7 mg/dL in May, then 2.4mg/dL in early June with his last outpatient creatinine of 2.6 mg/dL in early July of this year. During his hospitalization last month here at [facility], his creatinine worsened to 3.8mg/dl but was down to 2.99mg/dl on discharge. During this hospital stay, his creatinine has been running in the mid 2ish range up until this morning when his creatinine acutely destin to 3.41mg/dl. It is unclear if these are just random fluctuations in his baseline kidney function but the concern is that this maybe an element chronic kidney disease progression. Currently, the time my visit, he does not appear to be acute distress but reports fatigue/weakness. Review of Systems 2 Review of Systems: As per HPI. 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 He smokes 1-2 cigarettes per day most days. He denies marijuana use or other drug use. He drinks 1-2 alcoholic drinks per week. He has cats. Code status -full Surrogate decision maker - Smoking packs per day: 1 Smoking cigarettes per day: 20.0 Years smoked: 30 Smoking pack-years: 30.00 Smoking status: Former smoker Tobacco type: cigarettes Second hand tobacco smoke exposure: Yes Smoking end date: 08/11/03 Additional smoking assessment comments: marijuana daily and regular cigarettes smokes intermittently Alcohol intake: current Drinks per week: 2 Substance use: current Substance use type: marijuana Other substance usage details: smoke once a day Last use: 06/10/2024 Do You Feel Safe in your Home?: Yes Lack of Transportation: No Lack of Food: Never True Current Housing: I Have Housing Concerned About Future Housing: No Difficulty Paying Gas/Electric Bills: No Difficulty Paying for Meds: No Currently Unemployed: No Education: Master's Degree or Higher Difficulty w/ Childcare or Family Care: No Spiritual care concerns: No Meds Home Medications and Allergies Home Medications ?Medication ?Instructions ?Recorded ?Confirmed ?Type insulin glargine 100 unit/mL (3 20 unit subcut QHS 06/19/22 09/10/24 History mL) subcutaneous pen (Lantus Solostar U-100 Insulin) pantoprazole 40 mg tablet,delayed 40 mg PO DAILY 06/19/22 09/10/24 History release albuterol sulfate 90 mcg/actuation 2 puff inhalation QID PRN 06/21/22 09/10/24 Rx aerosol inhaler shortness of breath or wheezing #8.5 grams abiraterone 250 mg tablet 1,000 mg PO HS 03/26/24 09/10/24 History carvedilol 12.5 mg tablet 12.5 mg PO Q12H 03/26/24 09/10/24 History chlorthalidone 25 mg tablet 25 mg PO DAILY 03/26/24 09/10/24 History dorzolamide 22.3 mg-timolol 6.8 1 drp EACH EYE Q12H 03/26/24 09/10/24 History mg/mL eye drops insulin aspart U-100 100 unit/mL 1 sliding scale dose subcut TID 03/26/24 09/10/24 History (3 mL) subcutaneous pen (Novolog FlexPen U-100 Insulin aspart) lisinopril 20 mg tablet 40 mg PO DAILY 03/26/24 09/10/24 History pravastatin 20 mg tablet 20 mg PO HS 03/26/24 09/10/24 History sitagliptin phosphate 25 mg tablet 25 mg PO DAILY 03/26/24 09/10/24 History (Januvia) ondansetron 4 mg disintegrating 4 mg PO Q8H #14 tabs 08/28/24 09/10/24 Rx tablet tiotropium bromide 1.25 2 puff inhalation DAILY 30 days #4 09/05/24 09/10/24 Rx mcg/actuation mist for inhalation grams (Spiriva Respimat) mirtazapine 7.5 mg tablet 7.5 mg PO DAILY 09/10/24 09/10/24 History Allergies Allergy/AdvReac Type Severity Reaction Status Date / Time No Known Drug Allergies Allergy Unknown Other Verified 08/29/24 17:26 Vital Signs Vital Signs Temp Pulse Resp BP Pulse Ox O2 Del Method O2 Flow Rate 09/20/24 15:29 97.5 F L 65 19 112/65 97 09/20/24 14:50 24 H 96 BiPAP 09/20/24 14:25 87 09/20/24 13:51 75 24 H 95 BiPAP 09/20/24 13:48 82 24 H 09/20/24 12:00 94 09/20/24 12:00 97.6 F 91 28 H 124/71 99 09/20/24 12:00 BiPAP 09/20/24 10:00 85 09/20/24 10:00 97.6 F 83 30 H 106/57 L 98 09/20/24 08:00 80 09/20/24 08:00 97 Nasal Cannula 3 09/20/24 07:55 97.5 F L 90 29 H 108/58 L 95 09/20/24 07:37 90 22 H 96 BiPAP 09/20/24 07:30 90 24 H 09/20/24 07:30 96 Nasal Cannula 2 09/20/24 06:00 97.5 F L 91 22 H 109/53 L 97 09/20/24 06:00 86 09/20/24 04:31 84 20 97 Nasal Cannula 4 09/20/24 04:14 97.0 F L 99 30 H 128/76 100 09/20/24 04:00 85 09/20/24 04:00 97 Nasal Cannula 2 09/20/24 02:00 96.9 F L 85 23 H 90/42 L 95 09/20/24 02:00 85 09/20/24 01:37 93 27 H 09/20/24 00:10 BiPAP 09/20/24 00:00 75 09/20/24 00:00 97 BiPAP 09/20/24 00:00 96.3 F L 85 20 96/31 L 98 09/19/24 23:00 86/44 L 09/19/24 22:42 82 22 H 96 BiPAP 09/19/24 22:00 89 09/19/24 22:00 86 20 79/47 L 93 09/19/24 21:15 87/41 L 09/19/24 20:27 90 20 09/19/24 20:14 102 H 21 H 95 BiPAP 09/19/24 20:00 98 09/19/24 20:00 93 Nasal Cannula 2 09/19/24 19:59 102 H 21 H 09/19/24 19:57 97.6 F 87 18 88/38 L 96 Exam 2 Narrative: GENERAL APPEARANCE: somewhat ill-appearing elderly male laying in bed on BiPAP HEENT: normocephalic, atraumatic, normal conjunctiva and sclera, nares patient NECK: no lymphadenopathy, thyromegaly, or JVD MOUTH: normal lips, teeth, and gums CARDIOVASCULAR: IRRR, normal S1 and S2, no rub RESPIRATORY: coarse breath sounds ABDOMEN: soft, nontender, nondistended, positive bowel sounds present EXTREMITIES: no evidence of cyanosis, clubbing, or edema NEUROLOGICAL: lethargic but nods head to questions Results Lab Results 09/30/24 06:34 09/30/24 06:34 Lab results: Most recent lab results ABG pH 7.260 (7.350-7.450) L* 09/20/24 16:47 ABG pCO2 44.9 mmHg (35.0-45.0) 09/20/24 16:47 ABG pO2 101.3 mmHg (80.0-100.0) H 09/20/24 16:47 ABG HCO3 19.7 mEq/l (22.0-26.0) L 09/20/24 16:47 ABG O2 Saturation 96.8 % (95.0-100.0) 09/20/24 16:47 Calcium 8.9 mg/dL (8.4-10.2) 09/20/24 02:04 Phosphorus 5.7 mg/dL (2.5-4.5) H 09/20/24 02:04 Magnesium 1.5 mg/dL (1.6-2.3) L 09/20/24 02:04
[2024-09-20 15:46] LABS: Expiratory Pressure 6 cmH2O; Inspiratory Pressure 12 cmH2O
[2024-09-20 16:14] LABS: Glucose Point of Care 294 mg/dl (65-105)
[2024-09-20 16:50] LABS: Alveolar/Arterial O2 Gradient 59.8 mmHg; Fractional Inspired Oxygen 30 %; HCO3 ABG 19.7 mEq/l (22.0-26.0); Oxygen Content ABG 12.3 %vol (16.0-22.0); Oxygen Saturation ABG 96.8 % (95.0-100.0); Oxyhemoglobin 96.7 % THb (90.0-100.0); PCO2 ABG 44.9 mmHg (35.0-45.0); PO2 ABG 101.3 mmHg (80.0-100.0); PO2 FiO2 Ratio Arterial Blood 3.38 %; Total Hemoglobin 8.9 g/dL (12.0-18.0)
[2024-09-20 16:57] LABS: Device BIPAP; Site Drawn LEFT RADIAL
[2024-09-20 16:58] LABS: Expiratory Pressure 8 cmH2O; Inspiratory Pressure 16 cmH2O
[2024-09-20 18:07] LABS: Hematocrit 27.5 % (42.0-52.0); Hemoglobin 7.9 g/dL (14.0-18.0)
--- NOTE | 2024-09-20 18:07 | PC.NURSE ---
This patient, David Wei, was transferred to [ ICU 5] on 09/20/24 at 1800. Personal belongings sent with patient. Report given to [ Alisha VALDIVIA]. Appropriate documentation sent with patient.
--- NOTE | 2024-09-20 18:18 | P.CONONC_ITS ---
Assessment and Plan Assessment and plan (1) Renal mass: Code(s): N28.89 - Other specified disorders of kidney and ureter Status: Acute Assessment and Plan: Patient has a history of prostate cancer status post radiation therapy in the past. Patient is not able to provide the history and I was not able to find the family in the waiting area. CT scan abdomen and pelvis done on September 10 showed small bilateral pleural effusion and small subcentimeter cyst in the lower pole of the right kidney and 3 cm cyst in the left kidney. There was no lymphadenopathy. Patient has been managed by the oncologist at [facility]. Apparently he has been accepted for the transfer and waiting for the bed availability. I will order the PSA. At this time I do not see any evidence of relapse of prostate cancer. (2) Anemia: Code(s): D64.9 - Anemia, unspecified Status: Acute Assessment and Plan: Labs showed worsening of anemia with hemoglobin of 6.9. Creatinine 3.4. This is likely secondary to renal insufficiency. Vitamin B12 is normal at 784. I will check iron panel. I will also check LDH. I will check erythropoietin level before starting AHSAN. I will check SPEP with immunofixation. Nephrology is following the case. HPI Data of Consult Date/Time: 09/20/24 18:18 Requesting Physician: Argentina Corona MD Primary Care Provider: Kraig Ching, Consult Narrative Narrative: David Wei is a 83 year old male with history of prostate cancer status post radiation therapy treatment in the past. Patient also has history of hypertension, insulin-dependent diabetes, COPD, CKD and atrial fibrillation admitted to the hospital with tiredness and fatigue and weakness. He was just recently transferred to the ICU for close monitoring as he has been retaining carbon dioxide and became tachycardic. CT chest and abdomen showed small bilateral pleural effusion with no pneumonia and pulmonary edema. There was a 3 cm cyst in the left kidney and subcentimeter cyst in the right kidney. No pathologically enlarged lymph nodes. Head CT was performed due to mental status changes that showed no acute intracranial findings. Labs showed hemoglobin of 6.9. Patient is on BiPAP machine and not able to provide history as he seems to be quite sedated. 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 He smokes 1-2 cigarettes per day most days. He denies marijuana use or other drug use. He drinks 1-2 alcoholic drinks per week. He has cats. Code status -full Surrogate decision maker - Smoking packs per day: 1 Smoking cigarettes per day: 20.0 Years smoked: 30 Smoking pack-years: 30.00 Smoking status: Former smoker Tobacco type: cigarettes Second hand tobacco smoke exposure: Yes Smoking end date: 08/11/03 Additional smoking assessment comments: marijuana daily and regular cigarettes smokes intermittently Alcohol intake: current Drinks per week: 2 Substance use: current Substance use type: marijuana Other substance usage details: smoke once a day Last use: 06/10/2024 Do You Feel Safe in your Home?: Yes Lack of Transportation: No Lack of Food: Never True Current Housing: I Have Housing Concerned About Future Housing: No Difficulty Paying Gas/Electric Bills: No Difficulty Paying for Meds: No Currently Unemployed: No Education: Master's Degree or Higher Difficulty w/ Childcare or Family Care: No Spiritual care concerns: No Meds Home Medications and Allergies Home Medications ?Medication ?Instructions ?Recorded ?Confirmed ?Type insulin glargine 100 unit/mL (3 20 unit subcut QHS 06/19/22 09/10/24 History mL) subcutaneous pen (Lantus Solostar U-100 Insulin) pantoprazole 40 mg tablet,delayed 40 mg PO DAILY 06/19/22 09/10/24 History release albuterol sulfate 90 mcg/actuation 2 puff inhalation QID PRN 06/21/22 09/10/24 Rx aerosol inhaler shortness of breath or wheezing #8.5 grams abiraterone 250 mg tablet 1,000 mg PO HS 03/26/24 09/10/24 History carvedilol 12.5 mg tablet 12.5 mg PO Q12H 03/26/24 09/10/24 History chlorthalidone 25 mg tablet 25 mg PO DAILY 03/26/24 09/10/24 History dorzolamide 22.3 mg-timolol 6.8 1 drp EACH EYE Q12H 03/26/24 09/10/24 History mg/mL eye drops insulin aspart U-100 100 unit/mL 1 sliding scale dose subcut TID 03/26/24 09/10/24 History (3 mL) subcutaneous pen (Novolog FlexPen U-100 Insulin aspart) lisinopril 20 mg tablet 40 mg PO DAILY 03/26/24 09/10/24 History pravastatin 20 mg tablet 20 mg PO HS 03/26/24 09/10/24 History sitagliptin phosphate 25 mg tablet 25 mg PO DAILY 03/26/24 09/10/24 History (Januvia) ondansetron 4 mg disintegrating 4 mg PO Q8H #14 tabs 08/28/24 09/10/24 Rx tablet tiotropium bromide 1.25 2 puff inhalation DAILY 30 days #4 09/05/24 09/10/24 Rx mcg/actuation mist for inhalation grams (Spiriva Respimat) mirtazapine 7.5 mg tablet 7.5 mg PO DAILY 09/10/24 09/10/24 History Allergies Allergy/AdvReac Type Severity Reaction Status Date / Time No Known Drug Allergies Allergy Unknown Other Verified 08/29/24 17:26 Vital Signs Vital Signs - 24 hr 09/19/24 19:57 09/19/24 19:59 09/19/24 20:00 Temperature 36.4 C Pulse Rate 87 102 H Respiratory Rate 18 21 H Blood Pressure 88/38 L Pulse Oximetry 96 93 Oxygen Delivery Nasal Cannula Oxygen Flow Rate 2 Fraction of Inspired Oxygen 09/19/24 20:00 09/19/24 20:14 09/19/24 20:27 Temperature Pulse Rate 98 102 H 90 Respiratory Rate 21 H 20 Blood Pressure Pulse Oximetry 95 Oxygen Delivery BiPAP Oxygen Flow Rate Fraction of Inspired Oxygen 09/19/24 21:15 09/19/24 22:00 09/19/24 22:00 Temperature Pulse Rate 86 89 Respiratory Rate 20 Blood Pressure 87/41 L 79/47 L Pulse Oximetry 93 Oxygen Delivery Oxygen Flow Rate Fraction of Inspired Oxygen 09/19/24 22:42 09/19/24 23:00 09/20/24 00:00 Temperature 35.7 C L Pulse Rate 82 85 Respiratory Rate 22 H 20 Blood Pressure 86/44 L 96/31 L Pulse Oximetry 96 98 Oxygen Delivery BiPAP Oxygen Flow Rate Fraction of Inspired Oxygen 09/20/24 00:00 09/20/24 00:00 09/20/24 00:10 Temperature Pulse Rate 75 Respiratory Rate Blood Pressure Pulse Oximetry 97 Oxygen Delivery BiPAP BiPAP Oxygen Flow Rate Fraction of Inspired Oxygen 35 09/20/24 01:37 09/20/24 02:00 09/20/24 02:00 Temperature 36.1 C L Pulse Rate 93 85 85 Respiratory Rate 27 H 23 H Blood Pressure 90/42 L Pulse Oximetry 95 Oxygen Delivery Oxygen Flow Rate Fraction of Inspired Oxygen 09/20/24 04:00 09/20/24 04:00 09/20/24 04:14 Temperature 36.1 C L Pulse Rate 85 99 Respiratory Rate 30 H Blood Pressure 128/76 Pulse Oximetry 97 100 Oxygen Delivery Nasal Cannula Oxygen Flow Rate 2 Fraction of Inspired Oxygen 09/20/24 04:31 09/20/24 06:00 09/20/24 06:00 Temperature 36.4 C L Pulse Rate 84 86 91 Respiratory Rate 20 22 H Blood Pressure 109/53 L Pulse Oximetry 97 97 Oxygen Delivery Nasal Cannula Oxygen Flow Rate 4 Fraction of Inspired Oxygen 36 09/20/24 07:30 09/20/24 07:30 09/20/24 07:37 Temperature Pulse Rate 90 90 Respiratory Rate 24 H 22 H Blood Pressure Pulse Oximetry 96 96 Oxygen Delivery Nasal Cannula BiPAP Oxygen Flow Rate 2 Fraction of Inspired Oxygen 09/20/24 07:55 09/20/24 08:00 09/20/24 08:00 Temperature 36.4 C L Pulse Rate 90 80 Respiratory Rate 29 H Blood Pressure 108/58 L Pulse Oximetry 95 97 Oxygen Delivery Nasal Cannula Oxygen Flow Rate 3 Fraction of Inspired Oxygen 09/20/24 10:00 09/20/24 10:00 09/20/24 12:00 Temperature 36.4 C Pulse Rate 83 85 Respiratory Rate 30 H Blood Pressure 106/57 L Pulse Oximetry 98 Oxygen Delivery BiPAP Oxygen Flow Rate Fraction of Inspired Oxygen 35 09/20/24 12:00 09/20/24 12:00 09/20/24 13:48 Temperature 36.4 C Pulse Rate 91 94 82 Respiratory Rate 28 H 24 H Blood Pressure 124/71 Pulse Oximetry 99 Oxygen Delivery Oxygen Flow Rate Fraction of Inspired Oxygen 09/20/24 13:51 09/20/24 14:25 09/20/24 14:50 Temperature Pulse Rate 75 87 Respiratory Rate 24 H 24 H Blood Pressure Pulse Oximetry 95 96 Oxygen Delivery BiPAP BiPAP Oxygen Flow Rate Fraction of Inspired Oxygen 09/20/24 15:49 09/20/24 16:00 Temperature 36.4 C L Pulse Rate 65 77 Respiratory Rate 19 Blood Pressure 112/65 Pulse Oximetry 97 Oxygen Delivery Oxygen Flow Rate Fraction of Inspired Oxygen Exam 2 Narrative: Lungs are clear to auscultation bilaterally Cardiovascular tachycardic no murmurs Abdomen slightly distended bowel sounds are positive Extremities no edema Patient is sedated Results Labs 09/20/24 17:39 09/20/24 02:04 Labs: Short CBC 09/20/24 09/20/24 Range/Units 03:16 17:39 WBC 10.0 (4.5-10.0) K/mm3 Hgb 6.9 L* 7.9 L (14.0-18.0) g/dL Hct 23.8 L 27.5 L (42.0-52.0) % Plt Count 440 H (150-375) k/mm3 BMP 09/20/24 02:04 Sodium 137 Potassium 3.9 Chloride 103 Carbon Dioxide 15 L BUN 45 H D Creatinine 3.41 H Glucose 302 H Calcium 8.9 Liver Function 09/20/24 Range/Units 02:04 Total Bilirubin 0.3 (0.2-1.3) mg/dL AST 28 (17-59) U/L ALT 9 (6-50) U/L Alkaline Phosphatase 61 (38-126) U/L Albumin 3.6 (3.5-5.1) g/dL
[2024-09-20] MEDS: ACYCLOVIR SODIUM IVPB 900 MG in DEXTROSE 5% IN WATER 250 ML 250 MG IVPB (18:24)
[2024-09-20] MEDS: SODIUM BICARBONATE 8.4% 150 MEQ in DEXTROSE 5% 1,000 ML 1,000 ML IV CONT (18:48)
[2024-09-20 19:15] LABS: Glucose Point of Care 326 mg/dl (65-105)
[2024-09-20 20:00] LABS: Lactate Dehydrogenase 102 U/L (120-246)
[2024-09-20 20:58] LABS: Iron 23 ug/dL (49-181)
[2024-09-20 21:09] LABS: Percent Iron Saturation 17 % (20-50)
[2024-09-20 21:39] LABS: Prostate Specific Antigen < 0.1 ng/mL (< OR = 4.0)
[2024-09-20 23:30] LABS: Creatinine Urine 50.8 mg/dL; Total Protein Urine Random 104 mg/dL; Ur Ttl Prot Creatinine Ratio 2.05 mg/mg (0-0.20)
[2024-09-20 23:53] LABS: Eosinophil Urine None Seen % (None Seen); Urine Eos QC 2nd Tech Confirmed
[2024-09-20 23:58] LABS: Glucose Point of Care 380 mg/dl (65-105)
[2024-09-21] VITALS (35 sets, daily range): BP systolic 109–154; BP diastolic 57–108; PULSE 82–107; RESP 16–27; TEMP 33.7–36.6; O2SAT 91–100
--- NOTE | 2024-09-21 00:30 | PC.NURSE ---
Charge Nurse Nahun notified Dr. Raymond of patient's unequal pupils. stated that she would come and see patient.
[2024-09-21 00:53] LABS: Total Protein Urine Random 96 mg/dL; Urea Random Urine 318 MG/DL
[2024-09-21] MEDS: IPRATROPIUM 0.5 MG/ALBUTEROL SULFATE 2.5 MG AMPUL.NEB 3 ML INHALATION ×4 (01:18→20:20)
[2024-09-21 01:32] LABS: Sodium Urine Random 47 meq/L
[2024-09-21 02:09] LABS: Alveolar/Arterial O2 Gradient 74.9 mmHg; Carboxyhemoglobin 1.1 % THb (0-2.0); Fractional Inspired Oxygen 30 %; Methemoglobin ABG 0.1 %THb (0-1.5); Oxygen Content ABG 12.1 %vol (16.0-22.0); Oxygen Saturation ABG 97.2 % (95.0-100.0); Oxyhemoglobin 96.3 % THb (90.0-100.0); PCO2 ABG 35.2 mmHg (35.0-45.0); PO2 ABG 97.6 mmHg (80.0-100.0); PO2 FiO2 Ratio Arterial Blood 3.25 %; Reduced Hemoglobin 2.5 %THb (0-5.0); Total Hemoglobin 8.8 g/dL (12.0-18.0)
[2024-09-21 02:10] LABS: Device BIPAP; Modified Allen's Test Pass; Site Drawn RIGHT RADIAL
[2024-09-21 02:11] LABS: Expiratory Pressure 8 cmH2O; Inspiratory Pressure 16 cmH2O
--- NOTE | 2024-09-21 02:21 | PCRCNOTE ---
0500 ABG was done early at [address] Raymond said no need to repeat ABG at 0500.
[2024-09-21 03:58] LABS: Basophils Percent Auto 0.1 % (0.2-1.2); Hematocrit 26.1 % (42.0-52.0); Hemoglobin 7.7 g/dL (14.0-18.0); Immature Granulocyte Absolute 0.14 K/mm3 (0.00-0.031); Immature Granulocyte Percent A 0.7 % (0-0.5); Lymphocytes Absolute Auto 0.46 K/mm3 (0.9-3.2); Lymphocytes Percent Auto 2.4 % (18.3-44.2); Mean Corpuscular HGB Conc 29.5 g/dl (32-36); Mean Corpuscular Hemoglobin 24.8 pg (26-34); Mean Corpuscular Volume 84.2 fl (80-100); Mean Platelet Volume 9.8 fl (7.4-10.4); Monocytes Absolute Auto 0.6 K/mm3 (0.1-0.6); Neutrophils Absolute Auto 17.7 K/mm3 (1.3-6.7); Neutrophils Percent Auto 93.8 % (45.5-73.1); Nucleated Red Blood Cells Perc 0.4 % (0.0-0.2); Platelet Count Result 511 k/mm3 (150-375); Red Cell Distribution Width 17.2 % (11.5-14.5); White Blood Count 18.8 K/mm3 (4.5-10.0)
[2024-09-21 04:12] LABS: Alanine Aminotransferase 11 U/L (6-50); Alkaline Phosphatase 106 U/L (38-126); Anion Gap 15 mmol/L (4-12); Aspartate Amino Transferase 27 U/L (17-59); Bilirubin,Total 0.2 mg/dL (0.2-1.3); Blood Urea Nitrogen 61 mg/dL (9-20); Calcium 8.4 mg/dL (8.4-10.2); Carbon Dioxide 19 mmol/L (22-30); Chloride 104 mmol/L (98-107); Creatine Kinase 68 U/L (55-170); Estimated CRCL calculation 16 ml/min; Estimated Glomerular Filt Rate 16; Glucose 411 mg/dL (65-110); Magnesium 2.3 mg/dL (1.6-2.3); Potassium 3.6 mmol/L (3.4-5.0); Sodium 138 mmol/L (137-145); Total Protein 5.3 g/dL (6.3-8.2)
[2024-09-21 04:36] LABS: Platelet Estimate Increased (Adequate)
[2024-09-21 04:37] LABS: Anisocytosis 1+; Ovalocytes 1+; Schistocytes None Seen
[2024-09-21] MEDS: methylPREDNISolone SOD SUCC 40 MG VIAL IV PUSH ×3 (05:45→17:34)
[2024-09-21] MEDS: INSULIN ASPART (*BKC) 100 UNITS/ML SUB-Q ×3 (06:05→17:45)
[2024-09-21] MEDS: AMPICILLIN 2 GM/NS 100 ML 2 GM/100 ML BAG IVPB ×3 (06:05→21:00)
[2024-09-21 06:15] LABS: Glucose Point of Care 402 mg/dl (65-105)
[2024-09-21] MEDS: SODIUM BICARBONATE 8.4% 150 MEQ in DEXTROSE 5% 1,000 ML 950 ML IV CONT (06:20)
[2024-09-21] MEDS: SODIUM BICARBONATE 8.4% 100 MEQ in WATER, STERILE FOR INJECTION 1,000 ML 150 MEQ IV CONT (07:30)
[2024-09-21] MEDS: ASPIRIN 81 MG ENTERIC TABLET PO (09:46)
[2024-09-21] MEDS: PANTOPRAZOLE 40 MG TABLET PO (09:46)
[2024-09-21] MEDS: ATORVASTATIN 40 MG TABLET PO (09:46)
[2024-09-21] MEDS: cefTRIAXone 2 GM/NS 100 ML 2 GM/100 ML BAG IVPB ×2 (09:46→20:03)
[2024-09-21] MEDS: DORZOLAMIDE/TIMOLOL OPHTH SOL 10 ML BOTTLE 1 DROP EACH EYE ×2 (09:47→20:03)
--- NOTE | 2024-09-21 10:28 | P.CONPL_ITS ---
Assessment and Plan Assessment and plan (1) GABRIELA (acute kidney injury): Code(s): N17.9 - Acute kidney failure, unspecified Status: Acute Assessment and Plan: Patient has acute kidney injury with metabolic acidosis. Lactic acid 0.9 on 09/20/2024. He was placed on BiPAP to help him compensate For the metabolic acidosis 09/20/24: BiPAP pressures increased to 16/8 and repeat blood gas 7.26/45/103. creatinine 3.41, serum bicarb 15 lactic acid 0.9. started on bicarb drip. 09/21/2024: creatinine 3.70. Serum bicarb 19. Patient is in the ICU. He was difficult to arouse but once he woke up on the BiPAP he was able to show 2 fingers and wiggle his toes. Currently on BiPAP rate of 18, pressure 16/8, inspiratory time 0.8, rise of 3 and 30% FiO2 with saturations 100%. He is in no respiratory distress. ABG this morning 7.35/35/98. Remains on the bicarb drip. Plan: Nephrology has been consulted. Patient is now more awake. Would attempt patient off BiPAP as tolerated. Goal saturation 90-94%, adjust oxygen accordingly. Above settings provide adequate ventilation should the patient need to go back on BiPAP. Discussed with Dr. Rosen, will follow with you. (2) Chronic obstructive pulmonary disease: Code(s): J44.9 - Chronic obstructive pulmonary disease, unspecified Status: Acute Assessment and Plan: Patient carries a diagnosis of COPD. Maintain on albuterol at home. I have no PFTs. His CT scan of the chest on 09/16/2024 with mild apical predominant centrilobular emphysema. 09/21/2024: Patient has no wheezing on exam. No evidence of pneumonia on last CT scan 09/16/2024. Plan: There is no evidence of a COPD exacerbation, bronchitis or pneumonia. From a pulmonary perspective patient does not require systemic steroids or antibiotics. Agree with Incruse Ellipta 62.5 at 1 puff q.day. goal saturation 90-94%. History of Present Illness History of Present Illness Consult date: 09/21/24 Chief complaint: Persistent hypotension, recent aspiration pneumoni Narrative: 09/21/2024: This is a new pulmonary consult for her respiratory failure. 83-year-old with a history of prostate cancer status post radiation treatment, hypertension, diabetes, CKD with baseline creatinine 1.9-2.3, atrial fibrillation and COPD. Recently patient admitted 07/30 through 08/07 for acute kidney injury secondary to diarrhea. 08/28-09/05 for aspiration pneumonia and COPD. Patient admitted to the hospital on 09/09/2024 with shortness of breath, hypotension, acute kidney injury With creatinine 2.37, and altered mental status. Had no evidence noted of pneumonia or UTI. He had hypotension requiring Levophed in the ICU. Was placed on cefepime and vancomycin. there is no evidence of COPD exacerbation. on 09/11 he remained febrile. He was placed on his home Spiriva. 09/12 new right lower lung zone infiltrate on his chest x- ray, 09/13 creatinine stable at 2.4. Room air saturations 95%. 09/14/2024 remain febrile, some cough mild shortness of breath. Slurred speech X1 week and neurology consult and had mild dysarthria and mild right supranuclear facial weakness. 09/15/2024: Room air saturations 90-91, creatinine 2.71. 09/18/2024: Started ceftriaxone, ampicillin, vancomycin and acyclovir due to possible meningitis. Unable to perform LP. 09/19/2024 Creatinine 2.83, ABG 7.23/48/95 patient started on BiPAP. 09/20/2024 BiPAP continued. ABG 7.21/52/109. BiPAP pressures increased to 16/8 and repeat blood gas 7.26/45/103. creatinine 3.41, serum bicarb 15 lactic acid 0.9. started on bicarb drip. 09/21/2024: Patient is in the ICU. He was difficult to arouse but once he woke up on the BiPAP he was able to show 2 fingers and wiggle his toes. Currently on BiPAP rate of 18, pressure 16/8, inspiratory time 0.8, rise of 3 and 30% FiO2 with saturations 100%. He is in no respiratory distress. ABG this morning 7.35/35/98. Remains on the bicarb drip. DATA: 09/16/24: EXAMINATION: CT chest abdomen wo con INDICATION: Assess for pneumonia COMPARISON: Chest CT dated 09/14/[address] chest, abdomen and pelvis dated 09/09/2024 FINDINGS: CHEST CT: No significant change in small bilateral posterior layering pleural effusions with mild dependent atelectasis in the right upper and bilateral lower lobes. No pneumonia or pulmonary edema in the aerated portions of the lungs. Heart size is normal. Atherosclerotic coronary artery and aortic valve calcific lesion. No pericardial effusion. Thoracic aorta is normal in caliber. No pathologically enlarged thoracic lymphadenopathy. There is some residual oral contrast material from the earlier modified barium swallow study and the esophagus. Mild thoracic spondylosis with bridging osteophytes at multiple levels consistent with diffuse idiopathic skeletal hyperostosis (DISH). ABDOMEN CT: Gallbladder is not visualized likely surgically absent. Liver, spleen, pancreas and bilateral adrenal glands are normal. 3 cm low-attenuation cyst at the posterior medial left kidney. Subcentimeter hyperdense exophytic proteinaceous/hemorrhagic cyst at the lower pole the right kidney. There is an additional 3.5 cm exophytic lesion at the posterior right kidney which appeared anechoic on ultrasound dated 09/28/2020 consistent with additional prone/hemorrhagic cyst. There is oral contrast material in the stomach and throughout much of the visualized small bowel. Several diverticula along the visualized descending colon without adjacent from trace stranding to suggest diverticulitis. No pathologically enlarged abdominal lymphadenopathy. Severe lumbar spondylosis. IMPRESSION: 1. Unchanged small bilateral posterior layering pleural effusions with dependent atelectasis in both lungs. No pulmonary edema or pneumonia in the aerated portions of the lungs. 09/13/24: Summary 1. Left ventricular chamber dimension is mildly enlarged. 2. Left ventricular systolic function is normal, estimated at 60-65. 3. The left ventricular diastolic function is indeterminate as it was not assessed. 4. Left atrial chamber dimension is mildly enlarged. 5. There is moderate aortic valve sclerosis. 6. The mitral valve has a mildly calcified annulus. Right Ventricle Right ventricular chamber dimension is normal. Right ventricular systolic function is normal. Right Atria Right atrial chamber dimension is normal. No RVSP calculated. 08/30/24: Echo Summary 1. Complete two-dimensional, color flow and Doppler transthoracic echocardiogram is performed. 2. Left ventricular chamber dimension is mildly enlarged. 3. Left ventricular systolic function is hyperdynamic, estimated at >70. 4. There is moderately increased left ventricular wall thickness. 5. The left ventricular diastolic function is abnormal. 6. Left atrial chamber dimension is mildly enlarged. 7. Right atrial chamber dimension is mildly enlarged. 8. There is moderate aortic valve stenosis. 9. There is trace aortic valve regurgitation. 10. There is mild mitral valve regurgitation. 11. The mitral valve annulus is mildly calcified. 12. There is mild tricuspid valve regurgitation. 13. There is mild pulmonic regurgitation. 14. The aortic root size at the sinus of Valsalva is mildly dilated. Right Ventricle Right ventricular chamber dimension is normal. Right ventricular systolic function is normal. Left Atria Left atrial chamber dimension is mildly enlarged. Right Atria Right atrial chamber dimension is mildly enlarged. Atrial Septum Intact interatrial septum visualized by color flow imaging. PASP 51. 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 He smokes 1-2 cigarettes per day most days. He denies marijuana use or other drug use. He drinks 1-2 alcoholic drinks per week. He has cats. Code status -full Surrogate decision maker - Smoking packs per day: 1 Smoking cigarettes per day: 20.0 Years smoked: 30 Smoking pack-years: 30.00 Smoking status: Former smoker Tobacco type: cigarettes Second hand tobacco smoke exposure: Yes Smoking end date: 08/11/03 Additional smoking assessment comments: marijuana daily and regular cigarettes smokes intermittently Alcohol intake: current Drinks per week: 2 Substance use: current Substance use type: marijuana Other substance usage details: smoke once a day Last use: 06/10/2024 Do You Feel Safe in your Home?: Yes Lack of Transportation: No Lack of Food: Never True Current Housing: I Have Housing Concerned About Future Housing: No Difficulty Paying Gas/Electric Bills: No Difficulty Paying for Meds: No Currently Unemployed: No Education: Master's Degree or Higher Difficulty w/ Childcare or Family Care: No Spiritual care concerns: No Meds Home Medications and Allergies Home Medications ?Medication ?Instructions ?Recorded ?Confirmed ?Type insulin glargine 100 unit/mL (3 20 unit subcut QHS 06/19/22 09/10/24 History mL) subcutaneous pen (Lantus Solostar U-100 Insulin) pantoprazole 40 mg tablet,delayed 40 mg PO DAILY 06/19/22 09/10/24 History release albuterol sulfate 90 mcg/actuation 2 puff inhalation QID PRN 06/21/22 09/10/24 Rx aerosol inhaler shortness of breath or wheezing #8.5 grams abiraterone 250 mg tablet 1,000 mg PO HS 03/26/24 09/10/24 History carvedilol 12.5 mg tablet 12.5 mg PO Q12H 03/26/24 09/10/24 History chlorthalidone 25 mg tablet 25 mg PO DAILY 03/26/24 09/10/24 History dorzolamide 22.3 mg-timolol 6.8 1 drp EACH EYE Q12H 03/26/24 09/10/24 History mg/mL eye drops insulin aspart U-100 100 unit/mL 1 sliding scale dose subcut TID 03/26/24 09/10/24 History (3 mL) subcutaneous pen (Novolog FlexPen U-100 Insulin aspart) lisinopril 20 mg tablet 40 mg PO DAILY 03/26/24 09/10/24 History pravastatin 20 mg tablet 20 mg PO HS 03/26/24 09/10/24 History sitagliptin phosphate 25 mg tablet 25 mg PO DAILY 03/26/24 09/10/24 History (Januvia) ondansetron 4 mg disintegrating 4 mg PO Q8H #14 tabs 08/28/24 09/10/24 Rx tablet tiotropium bromide 1.25 2 puff inhalation DAILY 30 days #4 09/05/24 09/10/24 Rx mcg/actuation mist for inhalation grams (Spiriva Respimat) mirtazapine 7.5 mg tablet 7.5 mg PO DAILY 09/10/24 09/10/24 History Allergies Allergy/AdvReac Type Severity Reaction Status Date / Time No Known Drug Allergies Allergy Unknown Other Verified 08/29/24 17:26 Vital Signs Vital Signs - 24 hr 09/20/24 12:00 09/20/24 12:00 09/20/24 12:00 Temperature 36.4 C Pulse Rate 91 94 Respiratory Rate 28 H Blood Pressure 124/71 Pulse Oximetry 99 Oxygen Delivery BiPAP Fraction of Inspired Oxygen 35 09/20/24 13:48 09/20/24 13:51 09/20/24 14:25 Temperature Pulse Rate 82 75 87 Respiratory Rate 24 H 24 H Blood Pressure Pulse Oximetry 95 Oxygen Delivery BiPAP Fraction of Inspired Oxygen 09/20/24 14:50 09/20/24 15:49 09/20/24 16:00 Temperature 36.4 C L Pulse Rate 65 Respiratory Rate 24 H 19 Blood Pressure 112/65 Pulse Oximetry 96 97 Oxygen Delivery BiPAP BiPAP Fraction of Inspired Oxygen 30 09/20/24 16:00 09/20/24 20:00 09/20/24 20:00 Temperature 36.1 C L Pulse Rate 77 89 Respiratory Rate 18 Blood Pressure 121/65 Pulse Oximetry 98 98 Oxygen Delivery BiPAP Fraction of Inspired Oxygen 30 09/20/24 20:00 09/20/24 20:17 09/20/24 20:20 Temperature Pulse Rate 84 81 81 Respiratory Rate 19 19 Blood Pressure Pulse Oximetry 98 Oxygen Delivery BiPAP Fraction of Inspired Oxygen 09/20/24 22:00 09/20/24 22:09 09/20/24 22:10 Temperature Pulse Rate 80 78 78 Respiratory Rate 20 20 Blood Pressure Pulse Oximetry 100 100 Oxygen Delivery BiPAP BiPAP Fraction of Inspired Oxygen 30 09/21/24 00:00 09/21/24 00:00 09/21/24 00:00 Temperature 35.1 C L Pulse Rate 82 82 Respiratory Rate 16 Blood Pressure 129/73 Pulse Oximetry 99 99 Oxygen Delivery BiPAP Fraction of Inspired Oxygen 30 09/21/24 00:40 09/21/24 00:55 09/21/24 01:10 Temperature 33.7 C L 34.6 C L 34.9 C L Pulse Rate Respiratory Rate Blood Pressure Pulse Oximetry Oxygen Delivery Fraction of Inspired Oxygen 09/21/24 01:18 09/21/24 01:21 09/21/24 01:25 Temperature 35.2 C L Pulse Rate 90 90 Respiratory Rate 21 H 21 H Blood Pressure Pulse Oximetry 98 Oxygen Delivery BiPAP Fraction of Inspired Oxygen 09/21/24 01:40 09/21/24 02:00 09/21/24 02:10 Temperature 35.3 C L 35.6 C L Pulse Rate 86 Respiratory Rate Blood Pressure Pulse Oximetry Oxygen Delivery Fraction of Inspired Oxygen 09/21/24 02:13 09/21/24 02:40 09/21/24 03:10 Temperature 35.9 C L 36.2 C L Pulse Rate 84 Respiratory Rate 21 H Blood Pressure Pulse Oximetry 97 Oxygen Delivery BiPAP Fraction of Inspired Oxygen 09/21/24 04:00 09/21/24 04:00 09/21/24 04:35 Temperature 36.4 C L Pulse Rate 84 92 Respiratory Rate 21 H 24 H Blood Pressure 109/57 L Pulse Oximetry 100 99 97 Oxygen Delivery BiPAP BiPAP Fraction of Inspired Oxygen 30 09/21/24 05:05 09/21/24 06:00 09/21/24 08:00 Temperature 36.3 C L Pulse Rate 84 104 H 88 Respiratory Rate 18 Blood Pressure 153/93 H Pulse Oximetry 99 Oxygen Delivery Fraction of Inspired Oxygen 09/21/24 08:10 09/21/24 08:13 09/21/24 08:21 Temperature Pulse Rate 100 101 H 95 Respiratory Rate 25 H 21 H 19 Blood Pressure Pulse Oximetry 100 Oxygen Delivery BiPAP Fraction of Inspired Oxygen 09/21/24 10:11 Temperature Pulse Rate Respiratory Rate Blood Pressure Pulse Oximetry 95 Oxygen Delivery Room Air Fraction of Inspired Oxygen Exam 2 Const: General: comfortable HENMT: Head: normal to inspection Ears: hearing grossly normal bilaterally Eyes: General: appearance normal, both eyes and all related structures Neck: Neck: normal visual inspection Chest: Chest palpation & inspection: normal inspection of the chest Resp: Effort & Inspection: normal respiratory effort and able to speak in complete sentences Auscultation: crackles, no rales, no rhonchi, no wheezes and lung sounds not diminished Other: Currently on BiPAP with few inspiratory crackles. No wheezes. Cardio: Jugular venous distension: no JVD GI: Inspection: normal to inspection GI Palp: No abdominal tenderness Skin: General skin exam: normal color Extrem: General: normal to inspection Psych: Appearance: grossly normal Results Laboratory Findings 09/21/24 03:54 09/21/24 03:54 ABG, PT/INR, D-dimer: ABG ABG pH 7.350 (7.350-7.450) 09/21/24 01:55 ABG pCO2 35.2 mmHg (35.0-45.0) 09/21/24 01:55 ABG pO2 97.6 mmHg (80.0-100.0) 09/21/24 01:55 ABG O2 Saturation 97.2 % (95.0-100.0) 09/21/24 01:55 PT/INR, D-dimer PT 16.9 Seconds (11.1-14.7) H 09/19/24 13:57 INR 1.4 09/19/24 13:57 Abnormal lab findings: Abnormal Labs 09/09/24 09/10/24 09/10/24 19:30 03:59 03:59 WBC 11.6 H RBC 3.51 L 3.17 L Hgb 9.1 L 8.3 L Hct 29.6 L 27.0 L MCH 25.9 L MCHC 30.7 L 30.7 L RDW 15.4 H 15.4 H Plt Count 601 H 520 H Immature Gran % (Auto) 1.7 H 2.2 H Neut % (Auto) Lymph % (Auto) 12.8 L 17.5 L Stanton % (Auto) 11.1 H 16.9 H Baso % (Auto) Lymph # (Auto) Stanton # (Auto) 1.3 H 1.5 H Abs Immat Gran (auto) 0.20 H 0.20 H Absolute Neuts (auto) 8.5 H Absolute Nucleated RBC Nucleated RBC % ESR PT 14.9 H APTT Fibrinogen ABG pH ABG pCO2 ABG pO2 ABG HCO3 ABG O2 Saturation ABG O2 Content Total Hemoglobin Sodium 133 L 136 L Potassium 3.3 L Carbon Dioxide 21 L Anion Gap BUN 35 H D 29 H Creatinine 2.37 H 2.06 H 2.04 H Estimated GFR 26 L 31 L Glucose 204 H POC Capillary Glucose Lactic Acid Calcium 7.7 L Phosphorus Magnesium 1.0 L Iron TIBC % Saturation Total Bilirubin Ammonia Lactate Dehydrogenase C-Reactive Protein 8.1 H NT-Pro-B Natriuret Pep Total Protein 5.0 L Albumin 2.7 L TSH (Reflex) Urine Protein Ur Blood (Man) Ur Leukocyte Esterase Urine RBC Urine WBC Protein/Creat Ratio 2 CSF Tot Nucleated Cells CSF Neutrophils CSF Glucose CSF Total Protein Nasal MRSA (PCR) Crossmatch Enhanced Crossmatch 09/10/24 09/10/24 09/11/24 03:59 16:36 06:41 WBC RBC 3.29 L Hgb 8.3 L Hct 28.4 L MCH 25.2 L MCHC 29.2 L RDW 15.4 H Plt Count 501 H Immature Gran % (Auto) 1.0 H Neut % (Auto) Lymph % (Auto) 17.4 L Stanton % (Auto) 17.1 H Baso % (Auto) Lymph # (Auto) Stanton # (Auto) 1.7 H Abs Immat Gran (auto) 0.10 H Absolute Neuts (auto) Absolute Nucleated RBC Nucleated RBC % ESR PT APTT Fibrinogen ABG pH ABG pCO2 ABG pO2 ABG HCO3 ABG O2 Saturation ABG O2 Content Total Hemoglobin Sodium 136 L Potassium Carbon Dioxide Anion Gap BUN 30 H Creatinine 2.50 H Estimated GFR 31 L 25 L Glucose 141 H POC Capillary Glucose 130 H Lactic Acid Calcium 7.3 L 7.8 L Phosphorus 4.7 H 4.9 H Magnesium 1.4 L Iron TIBC % Saturation Total Bilirubin Ammonia Lactate Dehydrogenase C-Reactive Protein NT-Pro-B Natriuret Pep Total Protein 5.0 L 5.0 L Albumin 2.4 L 2.4 L TSH (Reflex) Urine Protein Ur Blood (Man) Ur Leukocyte Esterase Urine RBC Urine WBC Protein/Creat Ratio 2 CSF Tot Nucleated Cells CSF Neutrophils CSF Glucose CSF Total Protein Nasal MRSA (PCR) Crossmatch Enhanced Crossmatch 09/11/24 09/11/24 09/12/24 16:44 20:00 04:00 WBC RBC 3.10 L Hgb 7.8 L Hct 27.3 L MCH 25.2 L MCHC 28.6 L RDW 15.6 H Plt Count 425 H Immature Gran % (Auto) 1.0 H Neut % (Auto) Lymph % (Auto) 14.9 L Stanton % (Auto) 16.5 H Baso % (Auto) Lymph # (Auto) Stanton # (Auto) 1.6 H Abs Immat Gran (auto) 0.10 H Absolute Neuts (auto) Absolute Nucleated RBC Nucleated RBC % ESR PT APTT Fibrinogen ABG pH ABG pCO2 ABG pO2 ABG HCO3 ABG O2 Saturation ABG O2 Content Total Hemoglobin Sodium 135 L Potassium Carbon Dioxide Anion Gap BUN 26 H Creatinine 2.15 H Estimated GFR 30 L Glucose 114 H POC Capillary Glucose 119 H 121 H Lactic Acid 0.6 L Calcium 8.1 L Phosphorus Magnesium Iron TIBC % Saturation Total Bilirubin Ammonia Lactate Dehydrogenase C-Reactive Protein NT-Pro-B Natriuret Pep Total Protein 6.0 L Albumin 3.1 L TSH (Reflex) Urine Protein Ur Blood (Man) Ur Leukocyte Esterase Urine RBC Urine WBC Protein/Creat Ratio 2 CSF Tot Nucleated Cells CSF Neutrophils CSF Glucose CSF Total Protein Nasal MRSA (PCR) Crossmatch Enhanced Crossmatch 09/12/24 09/12/24 09/12/24 11:21 15:34 20:07 WBC RBC Hgb Hct MCH MCHC RDW Plt Count Immature Gran % (Auto) Neut % (Auto) Lymph % (Auto) Stanton % (Auto) Baso % (Auto) Lymph # (Auto) Stanton # (Auto) Abs Immat Gran (auto) Absolute Neuts (auto) Absolute Nucleated RBC Nucleated RBC % ESR PT APTT Fibrinogen ABG pH ABG pCO2 ABG pO2 ABG HCO3 ABG O2 Saturation ABG O2 Content Total Hemoglobin Sodium Potassium Carbon Dioxide Anion Gap BUN Creatinine Estimated GFR Glucose POC Capillary Glucose 176 H 182 H 143 H Lactic Acid Calcium Phosphorus Magnesium Iron TIBC % Saturation Total Bilirubin Ammonia Lactate Dehydrogenase C-Reactive Protein NT-Pro-B Natriuret Pep Total Protein Albumin TSH (Reflex) Urine Protein Ur Blood (Man) Ur Leukocyte Esterase Urine RBC Urine WBC Protein/Creat Ratio 2 CSF Tot Nucleated Cells CSF Neutrophils CSF Glucose CSF Total Protein Nasal MRSA (PCR) Crossmatch Enhanced Crossmatch 09/13/24 09/13/24 09/13/24 07:24 07:43 11:33 WBC 12.2 H RBC 3.56 L Hgb 9.0 L Hct 30.7 L MCH 25.3 L MCHC 29.3 L RDW 15.4 H Plt Count 450 H Immature Gran % (Auto) 0.7 H Neut % (Auto) Lymph % (Auto) 12.3 L Stanton % (Auto) 12.3 H Baso % (Auto) Lymph # (Auto) Stanton # (Auto) 1.5 H Abs Immat Gran (auto) 0.08 H Absolute Neuts (auto) 8.9 H Absolute Nucleated RBC Nucleated RBC % ESR PT APTT Fibrinogen ABG pH ABG pCO2 ABG pO2 ABG HCO3 ABG O2 Saturation ABG O2 Content Total Hemoglobin Sodium Potassium Carbon Dioxide Anion Gap BUN 26 H Creatinine 2.39 H Estimated GFR 26 L Glucose 112 H POC Capillary Glucose 110 H 148 H Lactic Acid Calcium Phosphorus Magnesium Iron TIBC % Saturation Total Bilirubin Ammonia Lactate Dehydrogenase C-Reactive Protein > 27.0 H NT-Pro-B Natriuret Pep Total Protein Albumin 3.0 L TSH (Reflex) Urine Protein Ur Blood (Man) Ur Leukocyte Esterase Urine RBC Urine WBC Protein/Creat Ratio 2 CSF Tot Nucleated Cells CSF Neutrophils CSF Glucose CSF Total Protein Nasal MRSA (PCR) Crossmatch Enhanced Crossmatch 09/13/24 09/13/24 09/14/24 16:07 20:29 06:03 WBC 11.6 H RBC 3.26 L Hgb 8.3 L Hct 28.3 L MCH 25.5 L MCHC 29.3 L RDW 15.7 H Plt Count 452 H Immature Gran % (Auto) 0.9 H Neut % (Auto) Lymph % (Auto) 14.9 L Stanton % (Auto) 13.4 H Baso % (Auto) Lymph # (Auto) Stanton # (Auto) 1.6 H Abs Immat Gran (auto) 0.10 H Absolute Neuts (auto) 8.0 H Absolute Nucleated RBC Nucleated RBC % ESR PT APTT Fibrinogen ABG pH ABG pCO2 ABG pO2 ABG HCO3 ABG O2 Saturation ABG O2 Content Total Hemoglobin Sodium 135 L Potassium Carbon Dioxide Anion Gap BUN 28 H Creatinine 2.47 H Estimated GFR 25 L Glucose 125 H POC Capillary Glucose 138 H 127 H Lactic Acid Calcium Phosphorus Magnesium 1.5 L Iron TIBC % Saturation Total Bilirubin Ammonia Lactate Dehydrogenase C-Reactive Protein NT-Pro-B Natriuret Pep Total Protein Albumin 2.6 L TSH (Reflex) Urine Protein Ur Blood (Man) Ur Leukocyte Esterase Urine RBC Urine WBC Protein/Creat Ratio 2 CSF Tot Nucleated Cells CSF Neutrophils CSF Glucose CSF Total Protein Nasal MRSA (PCR) Crossmatch Enhanced Crossmatch 09/14/24 09/14/24 09/14/24 07:47 11:46 13:44 WBC RBC Hgb Hct MCH MCHC RDW Plt Count Immature Gran % (Auto) Neut % (Auto) Lymph % (Auto) Stanton % (Auto) Baso % (Auto) Lymph # (Auto) Stanton # (Auto) Abs Immat Gran (auto) Absolute Neuts (auto) Absolute Nucleated RBC Nucleated RBC % ESR PT APTT Fibrinogen ABG pH ABG pCO2 ABG pO2 ABG HCO3 ABG O2 Saturation ABG O2 Content Total Hemoglobin Sodium Potassium Carbon Dioxide Anion Gap BUN Creatinine Estimated GFR Glucose POC Capillary Glucose 114 H 170 H Lactic Acid Calcium Phosphorus Magnesium Iron TIBC % Saturation Total Bilirubin Ammonia Lactate Dehydrogenase C-Reactive Protein NT-Pro-B Natriuret Pep Total Protein Albumin TSH (Reflex) Urine Protein Ur Blood (Man) Ur Leukocyte Esterase Urine RBC Urine WBC Protein/Creat Ratio 2 CSF Tot Nucleated Cells CSF Neutrophils CSF Glucose CSF Total Protein Nasal MRSA (PCR) Detected A* Crossmatch Enhanced Crossmatch 09/14/24 09/14/24 09/14/24 15:10 17:17 20:11 WBC RBC Hgb Hct MCH MCHC RDW Plt Count Immature Gran % (Auto) Neut % (Auto) Lymph % (Auto) Stanton % (Auto) Baso % (Auto) Lymph # (Auto) Stanton # (Auto) Abs Immat Gran (auto) Absolute Neuts (auto) Absolute Nucleated RBC Nucleated RBC % ESR PT APTT Fibrinogen ABG pH ABG pCO2 ABG pO2 66.6 L ABG HCO3 21.7 L ABG O2 Saturation 93.3 L ABG O2 Content 12.1 L Total Hemoglobin 9.3 L Sodium Potassium Carbon Dioxide Anion Gap BUN Creatinine Estimated GFR Glucose POC Capillary Glucose 186 H 219 H Lactic Acid Calcium Phosphorus Magnesium Iron TIBC % Saturation Total Bilirubin Ammonia Lactate Dehydrogenase C-Reactive Protein NT-Pro-B Natriuret Pep Total Protein Albumin TSH (Reflex) Urine Protein Ur Blood (Man) Ur Leukocyte Esterase Urine RBC Urine WBC Protein/Creat Ratio 2 CSF Tot Nucleated Cells CSF Neutrophils CSF Glucose CSF Total Protein Nasal MRSA (PCR) Crossmatch Enhanced Crossmatch 09/15/24 09/15/24 09/15/24 06:35 08:06 11:08 WBC 15.5 H RBC 3.56 L Hgb 9.0 L Hct 30.3 L MCH 25.3 L MCHC 29.7 L RDW 16.0 H Plt Count 505 H Immature Gran % (Auto) 0.6 H Neut % (Auto) 76.7 H Lymph % (Auto) 11.7 L Stanton % (Auto) 9.0 H Baso % (Auto) Lymph # (Auto) Stanton # (Auto) 1.4 H Abs Immat Gran (auto) 0.09 H Absolute Neuts (auto) 11.9 H Absolute Nucleated RBC Nucleated RBC % ESR PT APTT Fibrinogen ABG pH ABG pCO2 ABG pO2 ABG HCO3 ABG O2 Saturation ABG O2 Content Total Hemoglobin Sodium 135 L Potassium Carbon Dioxide Anion Gap BUN 36 H Creatinine 2.71 H Estimated GFR 23 L Glucose 182 H POC Capillary Glucose 171 H 163 H Lactic Acid Calcium Phosphorus Magnesium Iron TIBC % Saturation Total Bilirubin Ammonia Lactate Dehydrogenase C-Reactive Protein NT-Pro-B Natriuret Pep Total Protein 5.4 L Albumin 2.9 L TSH (Reflex) Urine Protein Ur Blood (Man) Ur Leukocyte Esterase Urine RBC Urine WBC Protein/Creat Ratio 2 CSF Tot Nucleated Cells CSF Neutrophils CSF Glucose CSF Total Protein Nasal MRSA (PCR) Crossmatch Enhanced Crossmatch 09/15/24 09/15/24 09/16/24 16:05 20:56 07:38 WBC RBC Hgb Hct MCH MCHC RDW Plt Count Immature Gran % (Auto) Neut % (Auto) Lymph % (Auto) Stanton % (Auto) Baso % (Auto) Lymph # (Auto) Stanton # (Auto) Abs Immat Gran (auto) Absolute Neuts (auto) Absolute Nucleated RBC Nucleated RBC % ESR PT APTT Fibrinogen ABG pH ABG pCO2 ABG pO2 ABG HCO3 ABG O2 Saturation ABG O2 Content Total Hemoglobin Sodium Potassium Carbon Dioxide Anion Gap BUN Creatinine Estimated GFR Glucose POC Capillary Glucose 186 H 206 H 161 H Lactic Acid Calcium Phosphorus Magnesium Iron TIBC % Saturation Total Bilirubin Ammonia Lactate Dehydrogenase C-Reactive Protein NT-Pro-B Natriuret Pep Total Protein Albumin TSH (Reflex) Urine Protein Ur Blood (Man) Ur Leukocyte Esterase Urine RBC Urine WBC Protein/Creat Ratio 2 CSF Tot Nucleated Cells CSF Neutrophils CSF Glucose CSF Total Protein Nasal MRSA (PCR) Crossmatch Enhanced Crossmatch 09/16/24 09/16/24 09/16/24 08:49 11:28 17:20 WBC 14.9 H RBC 3.52 L Hgb 9.0 L Hct 30.5 L MCH 25.6 L MCHC 29.5 L RDW 16.2 H Plt Count 465 H Immature Gran % (Auto) Neut % (Auto) Lymph % (Auto) Stanton % (Auto) Baso % (Auto) Lymph # (Auto) Stanton # (Auto) Abs Immat Gran (auto) Absolute Neuts (auto) Absolute Nucleated RBC Nucleated RBC % ESR PT APTT Fibrinogen ABG pH ABG pCO2 ABG pO2 ABG HCO3 ABG O2 Saturation ABG O2 Content Total Hemoglobin Sodium 135 L Potassium Carbon Dioxide Anion Gap BUN 37 H Creatinine 2.72 H Estimated GFR 22 L Glucose 176 H POC Capillary Glucose 195 H 191 H Lactic Acid Calcium Phosphorus Magnesium Iron TIBC % Saturation Total Bilirubin Ammonia < 9 L Lactate Dehydrogenase C-Reactive Protein NT-Pro-B Natriuret Pep Total Protein 5.4 L Albumin 2.7 L TSH (Reflex) 5.480 H Urine Protein Ur Blood (Man) Ur Leukocyte Esterase Urine RBC Urine WBC Protein/Creat Ratio 2 CSF Tot Nucleated Cells CSF Neutrophils CSF Glucose CSF Total Protein Nasal MRSA (PCR) Crossmatch Enhanced Crossmatch 09/16/24 09/17/24 09/17/24 21:50 08:08 08:26 WBC 14.3 H RBC 3.68 L Hgb 9.3 L Hct 31.2 L MCH 25.3 L MCHC 29.8 L RDW 16.0 H Plt Count 510 H Immature Gran % (Auto) Neut % (Auto) Lymph % (Auto) Stanton % (Auto) Baso % (Auto) Lymph # (Auto) Stanton # (Auto) Abs Immat Gran (auto) Absolute Neuts (auto) Absolute Nucleated RBC Nucleated RBC % ESR PT APTT Fibrinogen ABG pH ABG pCO2 ABG pO2 ABG HCO3 ABG O2 Saturation ABG O2 Content Total Hemoglobin Sodium 135 L Potassium Carbon Dioxide 21 L Anion Gap BUN 34 H Creatinine 2.65 H Estimated GFR 23 L Glucose 181 H POC Capillary Glucose 195 H 161 H Lactic Acid Calcium Phosphorus Magnesium Iron TIBC % Saturation Total Bilirubin Ammonia Lactate Dehydrogenase C-Reactive Protein NT-Pro-B Natriuret Pep Total Protein 5.7 L Albumin 3.0 L TSH (Reflex) Urine Protein Ur Blood (Man) Ur Leukocyte Esterase Urine RBC Urine WBC Protein/Creat Ratio 2 CSF Tot Nucleated Cells CSF Neutrophils CSF Glucose CSF Total Protein Nasal MRSA (PCR) Crossmatch Enhanced Crossmatch 09/17/24 09/17/24 09/17/24 11:47 14:42 15:17 WBC RBC Hgb Hct MCH MCHC RDW Plt Count Immature Gran % (Auto) Neut % (Auto) Lymph % (Auto) Stanton % (Auto) Baso % (Auto) Lymph # (Auto) Stanton # (Auto) Abs Immat Gran (auto) Absolute Neuts (auto) Absolute Nucleated RBC Nucleated RBC % ESR PT APTT Fibrinogen ABG pH 7.327 L ABG pCO2 47.1 H ABG pO2 ABG HCO3 ABG O2 Saturation ABG O2 Content 12.8 L Total Hemoglobin 9.4 L Sodium Potassium Carbon Dioxide Anion Gap BUN Creatinine Estimated GFR Glucose POC Capillary Glucose 227 H Lactic Acid Calcium Phosphorus Magnesium Iron TIBC % Saturation Total Bilirubin Ammonia < 9 L Lactate Dehydrogenase C-Reactive Protein NT-Pro-B Natriuret Pep Total Protein Albumin TSH (Reflex) Urine Protein Ur Blood (Man) Ur Leukocyte Esterase Urine RBC Urine WBC Protein/Creat Ratio 2 CSF Tot Nucleated Cells CSF Neutrophils CSF Glucose CSF Total Protein Nasal MRSA (PCR) Crossmatch Enhanced Crossmatch 09/17/24 09/17/24 09/18/24 16:33 20:21 05:37 WBC 13.8 H RBC 3.61 L Hgb 8.9 L Hct 31.3 L MCH 24.7 L MCHC 28.4 L RDW 16.2 H Plt Count 524 H Immature Gran % (Auto) Neut % (Auto) Lymph % (Auto) Stanton % (Auto) Baso % (Auto) Lymph # (Auto) Stanton # (Auto) Abs Immat Gran (auto) Absolute Neuts (auto) Absolute Nucleated RBC Nucleated RBC % ESR PT APTT Fibrinogen ABG pH ABG pCO2 ABG pO2 ABG HCO3 ABG O2 Saturation ABG O2 Content Total Hemoglobin Sodium 136 L Potassium Carbon Dioxide Anion Gap BUN 33 H Creatinine 2.60 H Estimated GFR 24 L Glucose 194 H POC Capillary Glucose 183 H 197 H Lactic Acid Calcium Phosphorus Magnesium Iron TIBC % Saturation Total Bilirubin Ammonia Lactate Dehydrogenase C-Reactive Protein NT-Pro-B Natriuret Pep Total Protein 5.5 L Albumin 2.9 L TSH (Reflex) Urine Protein Ur Blood (Man) Ur Leukocyte Esterase Urine RBC Urine WBC Protein/Creat Ratio 2 CSF Tot Nucleated Cells CSF Neutrophils CSF Glucose CSF Total Protein Nasal MRSA (PCR) Crossmatch Enhanced Crossmatch 09/18/24 09/18/24 09/18/24 07:18 07:53 11:20 WBC RBC Hgb Hct MCH MCHC RDW Plt Count Immature Gran % (Auto) Neut % (Auto) Lymph % (Auto) Stanton % (Auto) Baso % (Auto) Lymph # (Auto) Stanton # (Auto) Abs Immat Gran (auto) Absolute Neuts (auto) Absolute Nucleated RBC Nucleated RBC % ESR PT APTT Fibrinogen ABG pH ABG pCO2 ABG pO2 ABG HCO3 ABG O2 Saturation ABG O2 Content Total Hemoglobin Sodium Potassium Carbon Dioxide Anion Gap BUN Creatinine Estimated GFR Glucose POC Capillary Glucose 161 H 182 H 213 H Lactic Acid Calcium Phosphorus Magnesium Iron TIBC % Saturation Total Bilirubin Ammonia Lactate Dehydrogenase C-Reactive Protein NT-Pro-B Natriuret Pep Total Protein Albumin TSH (Reflex) Urine Protein Ur Blood (Man) Ur Leukocyte Esterase Urine RBC Urine WBC Protein/Creat Ratio 2 CSF Tot Nucleated Cells CSF Neutrophils CSF Glucose CSF Total Protein Nasal MRSA (PCR) Crossmatch Enhanced Crossmatch 09/18/24 09/18/24 09/18/24 13:20 13:21 13:24 WBC RBC Hgb Hct MCH MCHC RDW Plt Count Immature Gran % (Auto) Neut % (Auto) Lymph % (Auto) Stanton % (Auto) Baso % (Auto) Lymph # (Auto) Stanton # (Auto) Abs Immat Gran (auto) Absolute Neuts (auto) Absolute Nucleated RBC Nucleated RBC % ESR 98 H PT 17.0 H APTT 53.4 H Fibrinogen ABG pH ABG pCO2 ABG pO2 ABG HCO3 ABG O2 Saturation ABG O2 Content Total Hemoglobin Sodium Potassium Carbon Dioxide Anion Gap BUN Creatinine Estimated GFR Glucose POC Capillary Glucose Lactic Acid Calcium Phosphorus Magnesium Iron TIBC % Saturation Total Bilirubin Ammonia < 9 L Lactate Dehydrogenase C-Reactive Protein 17.5 H NT-Pro-B Natriuret Pep 6740 H Total Protein Albumin TSH (Reflex) Urine Protein Ur Blood (Man) Ur Leukocyte Esterase Urine RBC Urine WBC Protein/Creat Ratio 2 CSF Tot Nucleated Cells CSF Neutrophils CSF Glucose CSF Total Protein Nasal MRSA (PCR) Crossmatch Enhanced Crossmatch 09/18/24 09/18/24 09/18/24 14:49 17:13 17:19 WBC RBC Hgb Hct MCH MCHC RDW Plt Count Immature Gran % (Auto) Neut % (Auto) Lymph % (Auto) Stanton % (Auto) Baso % (Auto) Lymph # (Auto) Stanton # (Auto) Abs Immat Gran (auto) Absolute Neuts (auto) Absolute Nucleated RBC Nucleated RBC % ESR PT APTT Fibrinogen ABG pH 7.315 L ABG pCO2 50.9 H ABG pO2 79.4 L ABG HCO3 ABG O2 Saturation 94.6 L ABG O2 Content 12.8 L Total Hemoglobin 9.5 L Sodium Potassium Carbon Dioxide Anion Gap BUN Creatinine Estimated GFR Glucose POC Capillary Glucose 159 H Lactic Acid Calcium Phosphorus Magnesium Iron TIBC % Saturation Total Bilirubin Ammonia Lactate Dehydrogenase C-Reactive Protein NT-Pro-B Natriuret Pep Total Protein Albumin TSH (Reflex) Urine Protein 2+ H Ur Blood (Man) 1+ H Ur Leukocyte Esterase 1+ H Urine RBC 3-5 H Urine WBC 11-20 H Protein/Creat Ratio 2 CSF Tot Nucleated Cells CSF Neutrophils CSF Glucose CSF Total Protein Nasal MRSA (PCR) Crossmatch Enhanced Crossmatch 09/18/24 09/18/24 09/19/24 18:12 20:57 04:23 WBC 14.2 H 15.1 H RBC 3.40 L 3.37 L Hgb 8.4 L 8.3 L Hct 29.5 L 29.5 L MCH 24.7 L 24.6 L MCHC 28.5 L 28.1 L RDW 16.4 H 16.6 H Plt Count 519 H 515 H Immature Gran % (Auto) Neut % (Auto) Lymph % (Auto) Stanton % (Auto) Baso % (Auto) Lymph # (Auto) Stanton # (Auto) Abs Immat Gran (auto) Absolute Neuts (auto) Absolute Nucleated RBC Nucleated RBC % ESR PT 16.6 H 16.4 H APTT 49.6 H 41.9 H Fibrinogen 566 H ABG pH ABG pCO2 ABG pO2 ABG HCO3 ABG O2 Saturation ABG O2 Content Total Hemoglobin Sodium 135 L 135 L Potassium Carbon Dioxide Anion Gap BUN 33 H 32 H Creatinine 2.64 H 2.83 H Estimated GFR 23 L 21 L Glucose 158 H 147 H POC Capillary Glucose 165 H Lactic Acid Calcium Phosphorus Magnesium Iron TIBC % Saturation Total Bilirubin 0.1 L 0.1 L Ammonia Lactate Dehydrogenase C-Reactive Protein NT-Pro-B Natriuret Pep Total Protein 5.4 L 5.2 L Albumin 2.7 L 2.6 L TSH (Reflex) Urine Protein Ur Blood (Man) Ur Leukocyte Esterase Urine RBC Urine WBC Protein/Creat Ratio 2 CSF Tot Nucleated Cells CSF Neutrophils CSF Glucose CSF Total Protein Nasal MRSA (PCR) Crossmatch Enhanced Crossmatch 09/19/24 09/19/24 09/19/24 05:05 07:41 08:35 WBC RBC Hgb Hct MCH MCHC RDW Plt Count Immature Gran % (Auto) Neut % (Auto) Lymph % (Auto) Stanton % (Auto) Baso % (Auto) Lymph # (Auto) Stanton # (Auto) Abs Immat Gran (auto) Absolute Neuts (auto) Absolute Nucleated RBC Nucleated RBC % ESR PT APTT Fibrinogen ABG pH 7.226 L* 7.297 L* ABG pCO2 55.7 H 48.7 H ABG pO2 65.7 L ABG HCO3 ABG O2 Saturation 90.7 L ABG O2 Content 11.9 L 12.2 L Total Hemoglobin 8.8 L 9.4 L Sodium Potassium Carbon Dioxide Anion Gap BUN Creatinine Estimated GFR Glucose POC Capillary Glucose 158 H Lactic Acid Calcium Phosphorus Magnesium Iron TIBC % Saturation Total Bilirubin Ammonia Lactate Dehydrogenase C-Reactive Protein NT-Pro-B Natriuret Pep Total Protein Albumin TSH (Reflex) Urine Protein Ur Blood (Man) Ur Leukocyte Esterase Urine RBC Urine WBC Protein/Creat Ratio 2 CSF Tot Nucleated Cells CSF Neutrophils CSF Glucose CSF Total Protein Nasal MRSA (PCR) Crossmatch Enhanced Crossmatch 09/19/24 09/19/24 09/19/24 11:29 12:25 13:57 WBC RBC Hgb Hct MCH MCHC RDW Plt Count Immature Gran % (Auto) Neut % (Auto) Lymph % (Auto) Stanton % (Auto) Baso % (Auto) Lymph # (Auto) Stanton # (Auto) Abs Immat Gran (auto) Absolute Neuts (auto) Absolute Nucleated RBC Nucleated RBC % ESR PT 16.9 H APTT 43.1 H Fibrinogen ABG pH ABG pCO2 ABG pO2 114.9 H ABG HCO3 20.2 L ABG O2 Saturation ABG O2 Content 12.8 L Total Hemoglobin 9.1 L Sodium Potassium Carbon Dioxide Anion Gap BUN Creatinine Estimated GFR Glucose POC Capillary Glucose 192 H Lactic Acid Calcium Phosphorus Magnesium Iron TIBC % Saturation Total Bilirubin Ammonia Lactate Dehydrogenase C-Reactive Protein NT-Pro-B Natriuret Pep Total Protein Albumin TSH (Reflex) Urine Protein Ur Blood (Man) Ur Leukocyte Esterase Urine RBC Urine WBC Protein/Creat Ratio 2 CSF Tot Nucleated Cells CSF Neutrophils CSF Glucose CSF Total Protein Nasal MRSA (PCR) Crossmatch Enhanced Crossmatch 09/19/24 09/19/24 09/19/24 17:13 17:40 19:51 WBC RBC Hgb Hct MCH MCHC RDW Plt Count Immature Gran % (Auto) Neut % (Auto) Lymph % (Auto) Stanton % (Auto) Baso % (Auto) Lymph # (Auto) Stanton # (Auto) Abs Immat Gran (auto) Absolute Neuts (auto) Absolute Nucleated RBC Nucleated RBC % ESR PT APTT Fibrinogen ABG pH ABG pCO2 ABG pO2 ABG HCO3 ABG O2 Saturation ABG O2 Content Total Hemoglobin Sodium Potassium Carbon Dioxide Anion Gap BUN Creatinine Estimated GFR Glucose POC Capillary Glucose 223 H 269 H Lactic Acid Calcium Phosphorus Magnesium Iron TIBC % Saturation Total Bilirubin Ammonia Lactate Dehydrogenase C-Reactive Protein NT-Pro-B Natriuret Pep Total Protein Albumin TSH (Reflex) Urine Protein Ur Blood (Man) Ur Leukocyte Esterase Urine RBC Urine WBC Protein/Creat Ratio 2 CSF Tot Nucleated Cells 6 H CSF Neutrophils 10 H CSF Glucose 113 H CSF Total Protein 376 H Nasal MRSA (PCR) Crossmatch Enhanced Crossmatch 09/19/24 09/20/24 09/20/24 23:40 02:04 03:16 WBC RBC 2.73 L Hgb 6.9 L* Hct 23.8 L MCH 25.3 L MCHC 29.0 L RDW 16.6 H Plt Count 440 H Immature Gran % (Auto) 0.6 H Neut % (Auto) 89.8 H Lymph % (Auto) 6.9 L Stanton % (Auto) 2.5 L Baso % (Auto) Lymph # (Auto) 0.69 L Stanton # (Auto) Abs Immat Gran (auto) 0.06 H Absolute Neuts (auto) 9.0 H Absolute Nucleated RBC 0.020 H Nucleated RBC % ESR PT APTT Fibrinogen ABG pH 7.227 L* ABG pCO2 48.0 H ABG pO2 ABG HCO3 19.5 L ABG O2 Saturation ABG O2 Content 12.2 L Total Hemoglobin 8.9 L Sodium Potassium Carbon Dioxide 15 L Anion Gap 19 H BUN 45 H D Creatinine 3.41 H Estimated GFR 17 L Glucose 302 H POC Capillary Glucose Lactic Acid Calcium Phosphorus 5.7 H Magnesium 1.5 L Iron TIBC % Saturation Total Bilirubin Ammonia Lactate Dehydrogenase C-Reactive Protein NT-Pro-B Natriuret Pep Total Protein 5.8 L Albumin TSH (Reflex) Urine Protein Ur Blood (Man) Ur Leukocyte Esterase Urine RBC Urine WBC Protein/Creat Ratio 2 CSF Tot Nucleated Cells CSF Neutrophils CSF Glucose CSF Total Protein Nasal MRSA (PCR) Crossmatch Enhanced Crossmatch 09/20/24 09/20/24 09/20/24 03:56 07:34 11:44 WBC RBC Hgb Hct MCH MCHC RDW Plt Count Immature Gran % (Auto) Neut % (Auto) Lymph % (Auto) Stanton % (Auto) Baso % (Auto) Lymph # (Auto) Stanton # (Auto) Abs Immat Gran (auto) Absolute Neuts (auto) Absolute Nucleated RBC Nucleated RBC % ESR PT APTT Fibrinogen ABG pH ABG pCO2 ABG pO2 ABG HCO3 ABG O2 Saturation ABG O2 Content Total Hemoglobin Sodium Potassium Carbon Dioxide Anion Gap BUN Creatinine Estimated GFR Glucose POC Capillary Glucose 298 H 326 H Lactic Acid Calcium Phosphorus Magnesium Iron TIBC % Saturation Total Bilirubin Ammonia Lactate Dehydrogenase C-Reactive Protein NT-Pro-B Natriuret Pep Total Protein Albumin TSH (Reflex) Urine Protein Ur Blood (Man) Ur Leukocyte Esterase Urine RBC Urine WBC Protein/Creat Ratio 2 CSF Tot Nucleated Cells CSF Neutrophils CSF Glucose CSF Total Protein Nasal MRSA (PCR) Crossmatch See Detail Enhanced Crossmatch See Detail 09/20/24 09/20/24 09/20/24 14:32 16:10 16:47 WBC RBC Hgb Hct MCH MCHC RDW Plt Count Immature Gran % (Auto) Neut % (Auto) Lymph % (Auto) Stanton % (Auto) Baso % (Auto) Lymph # (Auto) Stanton # (Auto) Abs Immat Gran (auto) Absolute Neuts (auto) Absolute Nucleated RBC Nucleated RBC % ESR PT APTT Fibrinogen ABG pH 7.206 L* 7.260 L* ABG pCO2 52.4 H ABG pO2 109.5 H 101.3 H ABG HCO3 20.3 L 19.7 L ABG O2 Saturation ABG O2 Content 12.1 L 12.3 L Total Hemoglobin 8.7 L 8.9 L Sodium Potassium Carbon Dioxide Anion Gap BUN Creatinine Estimated GFR Glucose POC Capillary Glucose 294 H Lactic Acid Calcium Phosphorus Magnesium Iron TIBC % Saturation Total Bilirubin Ammonia Lactate Dehydrogenase C-Reactive Protein NT-Pro-B Natriuret Pep Total Protein Albumin TSH (Reflex) Urine Protein Ur Blood (Man) Ur Leukocyte Esterase Urine RBC Urine WBC Protein/Creat Ratio 2 CSF Tot Nucleated Cells CSF Neutrophils CSF Glucose CSF Total Protein Nasal MRSA (PCR) Crossmatch Enhanced Crossmatch 09/20/24 09/20/24 09/20/24 17:39 18:57 19:41 WBC RBC Hgb 7.9 L Hct 27.5 L MCH MCHC RDW Plt Count Immature Gran % (Auto) Neut % (Auto) Lymph % (Auto) Stanton % (Auto) Baso % (Auto) Lymph # (Auto) Stanton # (Auto) Abs Immat Gran (auto) Absolute Neuts (auto) Absolute Nucleated RBC Nucleated RBC % ESR PT APTT Fibrinogen ABG pH ABG pCO2 ABG pO2 ABG HCO3 ABG O2 Saturation ABG O2 Content Total Hemoglobin Sodium Potassium Carbon Dioxide Anion Gap BUN Creatinine Estimated GFR Glucose POC Capillary Glucose 326 H Lactic Acid Calcium Phosphorus Magnesium Iron 23 L TIBC 139 L % Saturation 17 L Total Bilirubin Ammonia Lactate Dehydrogenase 102 L C-Reactive Protein NT-Pro-B Natriuret Pep Total Protein Albumin TSH (Reflex) Urine Protein Ur Blood (Man) Ur Leukocyte Esterase Urine RBC Urine WBC Protein/Creat Ratio 2 CSF Tot Nucleated Cells CSF Neutrophils CSF Glucose CSF Total Protein Nasal MRSA (PCR) Crossmatch Enhanced Crossmatch 09/20/24 09/20/24 09/21/24 22:36 23:55 01:55 WBC RBC Hgb Hct MCH MCHC RDW Plt Count Immature Gran % (Auto) Neut % (Auto) Lymph % (Auto) Stanton % (Auto) Baso % (Auto) Lymph # (Auto) Stanton # (Auto) Abs Immat Gran (auto) Absolute Neuts (auto) Absolute Nucleated RBC Nucleated RBC % ESR PT APTT Fibrinogen ABG pH ABG pCO2 ABG pO2 ABG HCO3 19.0 L ABG O2 Saturation ABG O2 Content 12.1 L Total Hemoglobin 8.8 L Sodium Potassium Carbon Dioxide Anion Gap BUN Creatinine Estimated GFR Glucose POC Capillary Glucose 380 H Lactic Acid Calcium Phosphorus Magnesium Iron TIBC % Saturation Total Bilirubin Ammonia Lactate Dehydrogenase C-Reactive Protein NT-Pro-B Natriuret Pep Total Protein Albumin TSH (Reflex) Urine Protein Ur Blood (Man) Ur Leukocyte Esterase Urine RBC Urine WBC Protein/Creat Ratio 2 2.05 H CSF Tot Nucleated Cells CSF Neutrophils CSF Glucose CSF Total Protein Nasal MRSA (PCR) Crossmatch Enhanced Crossmatch 09/21/24 09/21/24 03:54 05:54 WBC 18.8 H RBC 3.10 L Hgb 7.7 L Hct 26.1 L MCH 24.8 L MCHC 29.5 L RDW 17.2 H Plt Count 511 H Immature Gran % (Auto) 0.7 H Neut % (Auto) 93.8 H Lymph % (Auto) 2.4 L Stanton % (Auto) Baso % (Auto) 0.1 L Lymph # (Auto) 0.46 L Stanton # (Auto) Abs Immat Gran (auto) 0.14 H Absolute Neuts (auto) 17.7 H Absolute Nucleated RBC 0.080 H Nucleated RBC % 0.4 H ESR PT APTT Fibrinogen ABG pH ABG pCO2 ABG pO2 ABG HCO3 ABG O2 Saturation ABG O2 Content Total Hemoglobin Sodium Potassium Carbon Dioxide 19 L Anion Gap 15 H BUN 61 H D Creatinine 3.70 H Estimated GFR 16 L Glucose 411 H POC Capillary Glucose 402 H Lactic Acid Calcium Phosphorus Magnesium Iron TIBC % Saturation Total Bilirubin Ammonia Lactate Dehydrogenase C-Reactive Protein NT-Pro-B Natriuret Pep Total Protein 5.3 L Albumin 3.0 L TSH (Reflex) Urine Protein Ur Blood (Man) Ur Leukocyte Esterase Urine RBC Urine WBC Protein/Creat Ratio 2 CSF Tot Nucleated Cells CSF Neutrophils CSF Glucose CSF Total Protein Nasal MRSA (PCR) Crossmatch Enhanced Crossmatch Diagnostic Findings Additional studies: ITS Impressions Chest X-Ray 09/09/24 20:06 IMPRESSION: Cardiomegaly. Blunting of the posterior costophrenic angles suggestive of effusion with adjacent atelectasis. Chest/Abdomen/Pelvis CT 09/09/24 21:59 IMPRESSION: CHEST: 1. Right pleural effusion. 2. No other definite acute cardiopulmonary pathology seen. 3. Slightly dilated esophagus which may indicate reflux esophagitis. ABDOMEN/PELVIS: 1. No evidence of appendicitis, diverticulitis or intestinal obstruction. 2. Bilateral renal cysts with small density in the right kidney lower pole. Follow-up advised. 3. Bilateral fat containing inguinal hernias. Small fat-containing umbilical hernia. Chest X-Ray 09/11/24 09:02 IMPRESSION: 1. New opacities at the right lower lung zone which could represent atelectasis or pneumonia. 2. Small right pleural effusion. Venous Doppler Study 09/11/24 10:07 IMPRESSION: 1: No lower extremity deep venous thrombosis. Head CT 09/14/24 16:52 IMPRESSION: No acute intracranial findings. Chest CT 09/15/24 05:40 Impression: [id number] bilateral pleural effusions with probable minimal interstitial edema and minimal bibasilar atelectatic change. Carotid Doppler Study 09/15/24 05:43 Impression: Mildly elevated velocity in the right internal carotid artery suggests moderate (50-69%) stenosis, though noted significant plaque clearly evident. Antegrade flow in the bilateral vertebral arteries. Note: The methodology used is an indirect measurement validated against a direct method (such as the NASCET criteria) that compares diameters at the stenosis to the distal ICA. Brain MRI 09/15/24 15:43 IMPRESSION: 1. 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 No acute intracranial process. 2. Age-related changes including mild diffuse volume loss and mild scattered nonspecific white matter T2 hyperintensity consistent with chronic small vessel ischemic disease. Modified Barium Swallow 09/16/24 13:13 IMPRESSION: Patient tolerated regular consistency oral feedings in the upright position. Please correlate with speech pathologist findings and specific feeding recommendations. Chest/Abdomen CT 09/16/24 13:52 IMPRESSION: 1. Unchanged small bilateral posterior layering pleural effusions with dependent atelectasis in both lungs. No pulmonary edema or pneumonia in the aerated portions of the lungs. Chest X-Ray 09/19/24 12:26 IMPRESSION: 1. Unchanged small bilateral pleural effusions with associated mild bibasilar atelectasis. Head CT 09/19/24 16:37 IMPRESSION: No acute intracranial findings. Lumbar Puncture Fluoroscopy 09/19/24 17:48 IMPRESSION: 1. Successful fluoro-guided lumbar puncture with normal opening pressure of 18 cm water which yielded only 2.5 mm of clear CSF.
[2024-09-21 12:03] LABS: Glucose Point of Care 379 mg/dl (65-105)
--- NOTE | 2024-09-21 13:07 | P.PNNP_ITS ---
Progress Note: A&P Assessment and Plan (1) Acute kidney injury: Code(s): N17.9 - Acute kidney failure, unspecified Status: Acute Assessment and Plan: * admission creatinine was close to baseline (2.37mg/dl) * up to 3.41mg/dl on 09/20; now up to 3.70mg/dl * suspect multifactorial etiology: * hypotension/shock on admission * sepsis/infection * insensible losses (high fevers on admission) * prerenal factors (poor oral/fluid intake prior to admission) * SARAH-I and chlorthalidone use prior to admission * other (?) * evaluation to date: * CT A/P x 2 without evidence of obstruction * urine electrolytes non-prerenal * urine eosinophils negative * CPK okay * evidence of proteinuria * reasonable urine output noted * follow trend repeat labs and UOP (2) Stage 4 chronic kidney disease: Code(s): N18.4 - Chronic kidney disease, stage 4 (severe) Status: Chronic Assessment and Plan: * baseline creatinine runs ~ 1.9 - 2.3mg/dl since 2021 * however, has fluctuated to extremes with recent admissions/hospitalizations at [facility] in the last couple of months... * outpatient labs since 2024 show creatinine seems to be running closer to 2.2 - 2.7mg/dl * last outpatient creatinine was 2.66mg/dl on 07/18/24 * discharge creatinine from August 2024 hospitalization was 2.99mg/dl * may have baseline creatinine given recurrent hospitalizations.... * baseline CKD is secondary to HTN, diabetes, vascular disease, and age-related change * follows with [facility] (Dr. Lin Guerrero) (3) Febrile illness: Code(s): R50.9 - Fever, unspecified Status: Acute Assessment and Plan: * as noted on presenation * evaluation to date noted: * UA was not reflective of UTI * CT C/A/P without contrast demonstrating right pleural effusion, slightly dilated esophagus, bilateral renal cyst, bilateral fat containing inguinal hernias and small fat containing umbilical hernia * blood cultures (from 09/09 and 09/12) with no growth to date * viral swan for COVID/RSV/influenza negative * venous duplex negative for DVTs * TTE with no significant findings * last CXR with new opacities of the right lower lung zone which could represent atelectasis or pneumonia * s/p lumbar puncture and CSF showed elevated elevated WBC and protein * elevated CRP and WBC noted * on empiric antibiotic therapy (to cover for pneumoina and meningitis) * continue supportive therapy (4) Slurred speech: Code(s): R47.81 - Slurred speech Status: Acute Assessment and Plan: * apparently noted on 09/14/24 * evaluation noted: * Brain MRI -- small old lacunar infarct at the right subinsular white matter; no acute intracranial process; age-related changes including mild diffuse volume loss and mild scattered nonspecific white matter T2 hyperintensity consistent with chronic small vessel ischemic disease * Echocardiogram (08/30) -- moderate aortic stenosis * Carotid Doppler -- mildly elevated velocity in the right internal carotid artery suggests moderate (50-69%) stenosis, though noted significant plaque clearly evident; antegrade flow in the bilateral vertebral arteries * repeat CT of head (09/19) -- negative * LP studies noted (aee #3) * on antibiotic therapy for possible meningitis * follow mental status and neuro checks (5) Chronic obstructive pulmonary disease: Code(s): J44.9 - Chronic obstructive pulmonary disease, unspecified Status: Acute Assessment and Plan: * continue nebulizer treatments PRN * on home Spiriva * supplemental oxygen as needed * night time BiPAP therapy (6) A-fib: Code(s): I48.91 - Unspecified atrial fibrillation Status: Chronic Assessment and Plan: * known history * rate control strategy * was on carvedilol at home * resume as blood presssure allows * not on anticoagulation at home due to history of bleeding gastric ulcer. (7) Hypertension: Code(s): I10 - Essential (primary) hypertension Status: Chronic Assessment and Plan: * BP initially on hold due given hypotension on presentation * was on coreg, lisinopril and chlorthalidone at home... * resume as clinical course dictated * follow trend of hemodynamics (8) Type 2 diabetes mellitus: Code(s): E11.9 - Type 2 diabetes mellitus without complications Status: Chronic Assessment and Plan: * follow accu-cheks * glycemic control per hospitalist Will continue to follow. L Subjective Date/time seen: 09/21/24 13:07 Interval history: Follow-up for acute kidney injury/acute renal failure on chronic kidney disease. Yesterday afternoon/evening, he developed respiratory distress that required use of BiPAP therapy with relative stabilization of his breathing as well as his mentation; Pulmonary saw earlier with recommendations noted; renal function/creatinine slightly worse but continues to make reasonable urine. Exam 2 Narrative: General: elderly and somewhat ill-appearing male in NAD Heart: normal S1 and S2; no rub Lungs: coarse with a few scattered crackles Abdomen: soft, nontender, nondistended, positive bowel sounds Extremities: no cyanosis or clubbing; no edema Skin: warm and dry Objective Data Vital Signs Vital Signs: Vital Signs Temp Pulse Resp BP Pulse Ox O2 Del Method O2 Flow Rate 09/21/24 12:48 100 23 H 96 High Flow Therapy with Na 35 09/21/24 12:00 96 24 H 96 High Flow Therapy with Na 35 09/21/24 12:00 93 09/21/24 12:00 97.7 F 93 25 H 154/84 H 91 09/21/24 10:11 95 Room Air 09/21/24 10:00 105 H 09/21/24 08:21 95 19 09/21/24 08:13 101 H 21 H 100 BiPAP 09/21/24 08:10 100 25 H 09/21/24 08:00 95 09/21/24 08:00 100 23 H 96 Room Air 09/21/24 08:00 97.4 F L 88 18 153/93 H 99 09/21/24 06:00 104 H 09/21/24 05:05 84 09/21/24 04:35 92 24 H 97 BiPAP 09/21/24 04:00 97.5 F L 84 21 H 109/57 L 99 09/21/24 04:00 100 BiPAP 09/21/24 03:10 97.1 F L 09/21/24 02:40 96.7 F L 09/21/24 02:13 84 21 H 97 BiPAP 09/21/24 02:10 96.1 F L 09/21/24 02:00 86 09/21/24 01:40 95.5 F L 09/21/24 01:25 95.3 F L 09/21/24 01:21 90 21 H 98 BiPAP 09/21/24 01:18 90 21 H 09/21/24 01:10 94.9 F L 09/21/24 00:55 94.3 F L 09/21/24 00:40 92.7 F L 09/21/24 00:00 82 09/21/24 00:00 95.2 F L 82 16 129/73 99 09/21/24 00:00 99 BiPAP 09/20/24 22:10 78 20 100 BiPAP 09/20/24 22:09 78 20 100 BiPAP 09/20/24 22:00 80 09/20/24 20:20 81 19 98 BiPAP 09/20/24 20:17 81 19 09/20/24 20:00 84 09/20/24 20:00 98 BiPAP 09/20/24 20:00 97.0 F L 89 18 121/65 98 Intake/Output Intake/Output: Intake & Output 09/18/24 09/19/24 09/20/24 09/21/24 23:59 23:59 23:59 23:59 Intake Total 1865 2008 1162 100 Output Total 550 900 100 600 Balance 1315 1108 1062 -500 Meds/Results Medications: Active Medications Generic Name Dose Route Start Last Admin Trade Name Freq PRN Reason Stop Dose Admin Acetaminophen 650 mg 09/10/24 00:24 09/14/24 05:16 Acetaminophen 325 Mg Tablet PO 650 mg Q4H PRN Administration Mild Pain (1-3) or Fever Albuterol/Ipratropium 3 ml 09/19/24 20:00 09/21/24 14:00 Ipratropium 0.5 Mg/Albuterol Sulfate 2.5 Mg Ampul.Neb 3 Ml INHALATION 3 ml Q6HRT PJ Administration Aspirin 81 mg 09/15/24 09:00 09/21/24 09:46 Aspirin 81 Mg Enteric Tablet PO 81 mg QAM PJ Administration Atorvastatin Calcium 40 mg 09/15/24 09:00 09/21/24 09:46 Atorvastatin 40 Mg Tablet PO 40 mg DAILY PJ Administration Dextrose 12.5 gm 09/10/24 09:20 Dextrose 50% 25 Gm/50 Ml Syringe IV PUSH PRN PRN Hypoglycemia Protocol Dorzolamide/Timolol 1 drop 09/13/24 09:40 09/21/24 09:47 Dorzolamide/Timolol Ophth Sarah 10 Ml Bottle EACH EYE 1 drop Q12HR PJ Administration Enoxaparin Sodium 30 mg 09/11/24 09:00 09/18/24 09:42 Enoxaparin 30 Mg/0.3 Ml Syringe SUB-Q 30 mg DAILY PJ Administration Glucagon 1 mg 09/10/24 09:20 Glucagon For Inj 1 Mg Vial IM PRN PRN Hypoglycemia Protocol Glucose 15 gm 09/10/24 09:20 Glucose Oral Gel 15 Gm Of Glucse In 37.5 Gm Tube PO PRN PRN Hypoglycemia Protocol Dextrose 1,000 mls @ 100 mls/hr 09/10/24 09:20 Dextrose 5% 1,000 Ml IVPB PRN PRN Hypoglycemia Protocol Ceftriaxone Sodium 2 gm in 100 mls @ 200 mls/hr 09/18/24 12:45 09/21/24 09:46 Rocephin 2 Gm/Ns 100 Ml IVPB 200 mls/hr Q12HR PJ Administration Ampicillin Sodium 2 gm in 100 mls @ 200 mls/hr 09/18/24 14:00 09/21/24 15:04 Ampicillin 2 Gm/Ns 100 Ml IVPB 200 mls/hr Q8HR PJ Administration Acyclovir Sodium 900 mg/ 268 mls @ 249.625 mls/hr 09/18/24 18:00 09/20/24 19:29 Dextrose IVPB Infused Q24H PJ Infusion Sodium Bicarbonate 100 meq/ 1,100 mls @ 150 mls/hr 09/21/24 07:00 09/21/24 07:30 Sterile Water IV CONT 150 mls/hr .Q7H20M PJ Administration Vancomycin HCl 1,500 mg in 500 mls @ 250 mls/hr 09/22/24 00:00 Vancomycin 1,500 Mg/Ns 500 Ml IVPB Q48H PJ Insulin Aspart 4 - 8 units 09/21/24 00:00 09/21/24 12:04 Insulin Aspart (*Bkc) 100 Units/Ml SUB-Q 6 units Q6HR PJ Administration Protocol Methylprednisolone Sodium Succinate 40 mg 09/19/24 06:05 09/21/24 12:04 Methylprednisolone Sod Succ 40 Mg Vial IV PUSH 40 mg Q6HR PJ Administration Mirtazapine 7.5 mg 09/13/24 09:50 09/14/24 09:00 Mirtazapine 7.5 Mg Tablet PO 7.5 mg DAILY PJ Administration Ondansetron HCl 4 mg 09/10/24 00:24 09/10/24 13:19 Ondansetron Inj 4 Mg/2 Ml Vial IV PUSH 4 mg Q4H PRN Administration Nausea Pantoprazole Sodium 40 mg 09/11/24 09:00 09/21/24 09:46 Pantoprazole 40 Mg Tablet PO 40 mg QAM PJ Administration Sodium Chloride 20 ml 09/11/24 08:00 Central Line Flush IV PUSH PRN PRN after blood draws Umeclidinium Baird 1 puff 09/10/24 09:00 09/21/24 08:23 Umeclidinium Baird 62.5 Mcg Ellipta INHALATION Not Given DAILY [facility], [facility] Radiology Results: ITS Impressions Chest/Abdomen/Pelvis CT 09/09/24 21:59 IMPRESSION: CHEST: 1. Right pleural effusion. 2. No other definite acute cardiopulmonary pathology seen. 3. Slightly dilated esophagus which may indicate reflux esophagitis. ABDOMEN/PELVIS: 1. No evidence of appendicitis, diverticulitis or intestinal obstruction. 2. Bilateral renal cysts with small density in the right kidney lower pole. Follow-up advised. 3. Bilateral fat containing inguinal hernias. Small fat-containing umbilical hernia. Venous Doppler Study 09/11/24 10:07 IMPRESSION: 1: No lower extremity deep venous thrombosis. Chest CT 09/15/24 05:40 Impression: [id number] bilateral pleural effusions with probable minimal interstitial edema and minimal bibasilar atelectatic change. Carotid Doppler Study 09/15/24 05:43 Impression: Mildly elevated velocity in the right internal carotid artery suggests moderate (50-69%) stenosis, though noted significant plaque clearly evident. Antegrade flow in the bilateral vertebral arteries. Note: The methodology used is an indirect measurement validated against a direct method (such as the NASCET criteria) that compares diameters at the stenosis to the distal ICA. Brain MRI 09/15/24 15:43 IMPRESSION: 1. 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 No acute intracranial process. 2. Age-related changes including mild diffuse volume loss and mild scattered nonspecific white matter T2 hyperintensity consistent with chronic small vessel ischemic disease. Modified Barium Swallow 09/16/24 13:13 IMPRESSION: Patient tolerated regular consistency oral feedings in the upright position. Please correlate with speech pathologist findings and specific feeding recommendations. Chest/Abdomen CT 09/16/24 13:52 IMPRESSION: 1. Unchanged small bilateral posterior layering pleural effusions with dependent atelectasis in both lungs. No pulmonary edema or pneumonia in the aerated portions of the lungs. Head CT 09/19/24 16:37 IMPRESSION: No acute intracranial findings. Lumbar Puncture Fluoroscopy 09/19/24 17:48 IMPRESSION: 1. Successful fluoro-guided lumbar puncture with normal opening pressure of 18 cm water which yielded only 2.5 mm of clear CSF. Chest X-Ray 09/21/24 12:34 Impression: Minimal pleural effusions with mild bibasilar pulmonary edema/atelectasis. Labs Labs: Laboratory Tests 09/21/24 03:54 09/21/24 03:54 Calcium 8.4 Magnesium 2.3 Total Bilirubin 0.2 AST 27 ALT 11 Alkaline Phosphatase 106 Total Creatine Kinase 68 Total Protein 5.3 L Albumin 3.0 L Microbiology 09/19/24 17:15 Cerebral Spinal Fluid Gram Stain - Final 09/19/24 17:15 Cerebral Spinal Fluid CSF Culture - Preliminary
[2024-09-21 13:32] LABS: Varicella IgM Antibody 0.23
--- NOTE | 2024-09-21 17:06 | P.PNIM_ITS ---
Progress Note: A&P Assessment and Plan (1) Febrile illness: Code(s): R50.9 - Fever, unspecified Status: Acute Assessment and Plan: 09/09: Patient presented with fevers, weakness, hypotension -UA was not reflective of UTI -CT Ch/A/P without contrast demonstrating right pleural effusion, slightly dilated esophagus, bilateral renal cyst,. Bilateral fat containing inguinal hernias and small fat containing umbilical hernia. -09/09: BCx NGTD MRSA nasal swab negative. COVID, influenza and RSV PCR negative. Started on cefepime and vancomycin (09/09) but vanco stopped on 09/11. Venous duplex negative for DVT. CXR with new opacities of the right lower lung zone which could represent atelectasis or pneumonia with small right pleural effusion. Repeat BCx 09/12 NGTD CRP 8 -> 27. WBC higher at 12K. But fever curve better. Patient feels better. Continue Cefepime for now. add flagyl for anaerobic coverage 09/14/24. recheck mrsa positive. will add linezolid TTE with no signifciant findings. Hx of aspiration PNA so will have speech therapy evaluate. Consider BERNA to exclude endocarditis but felt unlikely with negative BCx. does not meet's Carnes's criteria. on ceftriaxone,ampicillin ,vancomycin and acyclovir due to possible meningitis Will repeat PT/PTT/INR Lactic acid is normal CRP and ESR is elevated. Possible source of infection UTI s/p Lumbar puncture and CSF showed elevated elevated WBC and protein continue above Anti-infectives monitor (2) Sepsis: Code(s): A41.9 - Sepsis, unspecified organism Status: Acute Assessment and Plan: Patient was hypotensive in the ER, received 30 cc/kg IV fluids and central line was inserted Levophed started but able to be weaned off Blood pressures stable Continue antibiotics as above (3) Chronic kidney disease, stage 3: Code(s): N18.30 - Chronic kidney disease, stage 3 unspecified Status: Acute Assessment and Plan: Patient with history of CKD (baseline 2.50-3.26) On admission creatinine was 2.37. -patient did diurese well as he was volume overloaded and congested -received albumin -urine output has been adequate Cr stable at 2.4, 3.41 today -continue to monitor renal function, electrolytes and urine output Nephrology consulted (4) Chronic obstructive pulmonary disease: Code(s): J44.9 - Chronic obstructive pulmonary disease, unspecified Status: Acute Assessment and Plan: No wheezing appreciated. Continue neb treatments. Continue home Spiriva now on 3 liters oxygen conitnue nighttime BiPAP (5) A-fib: Code(s): I48.91 - Unspecified atrial fibrillation Status: Acute Assessment and Plan: History of AFib -on carvedilol at home -will hold for now as patient's BP still soft -heart rate is controlled for now Not on anticoagulation at home due to history of bleeding gastric ulcer. His last EGD 3-4 years ago (6) Hypertension: Code(s): I10 - Essential (primary) hypertension Status: Chronic Assessment and Plan: Patient on Coreg, lisinopril and chlorthalidone at home. titrate home meds with clinical course (7) Type 2 diabetes mellitus: Code(s): E11.9 - Type 2 diabetes mellitus without complications Status: Chronic Assessment and Plan: Glucose remains well controlled. Continue AccuCheks covering with sliding scale. Hypoglycemia protocol available as needed. Resume home lantus and aspart when able (8) Renal mass: Code(s): N28.89 - Other specified disorders of kidney and ureter Status: Acute Assessment and Plan: Incidental finding by CT showing a left upper pole cyst measuring 2.9 cm. Exophytic cyst is seen in the right kidney midpole measuring 3 cm. Tiny hypodense lesion seen in the right kidney lower pole most likely hemorrhagic cyst. Tiny mass cannot be excluded. Follow-up advised. awaiting transfer to [facility] for oncology eval and treat (9) Slurred speech: Code(s): R47.81 - Slurred speech Status: Acute Assessment and Plan: Noticed some slurred speech 09/14/24 Brain MRI:1. 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 No acute intracranial process. 2. Age-related changes including mild diffuse volume loss and mild scattered nonspecific white matter T2 hyperintensity consistent with chronic small vessel ischemic disease. Echocardiogram was performed on 08/30/2024 which shows moderate aortic stenosis Carotid Doppler:Mildly elevated velocity in the right internal carotid artery suggests moderate (50-69%) stenosis, though noted significant plaque clearly evident. Antegrade flow in the bilateral vertebral arteries. Following Neurology recommendation Order LP studies Started on ceftriaxone, ampicillin, Acyclovir and vancomycin Neuro check q.[address] head today 09/19 negative Plan 83 y/o male was admitted with weakness and fatigue was found to have metabolic acidosis most likely due to GABRIELA on CKD, patient has been treated with bicar drip and patient metabolic acidosis is improving, there is a concern patient may have partially treated meningitis discussed with neurologist and recommended to treat with IV antibiotics for 2 weeks, patient is also has prostate cancer and patient is treated by an oncologist at [facility] and patient is been accepted to be transfer and waiting for the bed, patient family is present in the room and gave updates, Called [facility] transfer line to give update that patient is treated for meningitis. still waiting for the bed. Acute hypoxemic hypercapnic respiratory failure likely from bronchospasm and CHF ECHO showed diastolic dysfunction CT chest showed bilateral pleural effusion s/p BiPAP on NC oxygen continue BiPAP at night Diuresis on hold as patient was given 40mg IV yesterday and Creatinine worsened Nephrology consulted Hypomagnesemia Mg 1.5 replaced Anemia Hb 6.8 received 1 unit pRBC repeat H and H, monitor At the request of , she wanted to transfer the [facility] for continuity of care. Awaiting transfer to [facility] DVT prophylaxis: Lovenox Code Status: Full code Patulous esophagus with reflux esophagitis: likely etiology for aspiration pneumonia. Code Status: Full code Subjective Date/time seen: 09/21/24 17:07 Interval history: 83 y/o male was admitted with weakness and fatigue was found to have metabolic acidosis most likely due to GABRIELA on CKD, patient has been treated with bicar drip and patient metabolic acidosis is improving, there is a concern patient may have partially treated meningitis discussed with neurologist and recommended to treat with IV antibiotics for 2 weeks, patient is also has prostate cancer and patient is treated by an oncologist at [facility] and patient is been accepted to be transfer and waiting for the bed, patient family is present in the room and gave updates, Called [facility] transfer line to give update that patient is treated for meningitis. still waiting for the bed. Review of Systems Review of Systems: All systems reviewed & are unremarkable except as noted in HPI and below Exam Narrative: Patient is comfortable, NAD HEENT: eyes are clear and none icteric LUNGS:CTA HEART: RR S1S2 ABD: BS+, Soft and nontender Lower extremities: no edema SKIN: nonjaundiced Neuro: grossly intact. Objective Data Vital Signs Vital Signs: Vital Signs - 24 hr 09/20/24 20:00 09/20/24 20:00 09/20/24 20:00 Temperature 36.1 C L Pulse Rate 89 84 Respiratory Rate 18 Blood Pressure 121/65 Pulse Oximetry 98 98 Oxygen Delivery BiPAP Oxygen Flow Rate Fraction of Inspired Oxygen 30 09/20/24 20:17 09/20/24 20:20 09/20/24 22:00 Temperature Pulse Rate 81 81 80 Respiratory Rate 19 19 Blood Pressure Pulse Oximetry 98 Oxygen Delivery BiPAP Oxygen Flow Rate Fraction of Inspired Oxygen 09/20/24 22:09 09/20/24 22:10 09/21/24 00:00 Temperature Pulse Rate 78 78 Respiratory Rate 20 20 Blood Pressure Pulse Oximetry 100 100 99 Oxygen Delivery BiPAP BiPAP BiPAP Oxygen Flow Rate Fraction of Inspired Oxygen 30 30 09/21/24 00:00 09/21/24 00:00 09/21/24 00:40 Temperature 35.1 C L 33.7 C L Pulse Rate 82 82 Respiratory Rate 16 Blood Pressure 129/73 Pulse Oximetry 99 Oxygen Delivery Oxygen Flow Rate Fraction of Inspired Oxygen 09/21/24 00:55 09/21/24 01:10 09/21/24 01:18 Temperature 34.6 C L 34.9 C L Pulse Rate 90 Respiratory Rate 21 H Blood Pressure Pulse Oximetry Oxygen Delivery Oxygen Flow Rate Fraction of Inspired Oxygen 09/21/24 01:21 09/21/24 01:25 09/21/24 01:40 Temperature 35.2 C L 35.3 C L Pulse Rate 90 Respiratory Rate 21 H Blood Pressure Pulse Oximetry 98 Oxygen Delivery BiPAP Oxygen Flow Rate Fraction of Inspired Oxygen 09/21/24 02:00 09/21/24 02:10 09/21/24 02:13 Temperature 35.6 C L Pulse Rate 86 84 Respiratory Rate 21 H Blood Pressure Pulse Oximetry 97 Oxygen Delivery BiPAP Oxygen Flow Rate Fraction of Inspired Oxygen 09/21/24 02:40 09/21/24 03:10 09/21/24 04:00 Temperature 35.9 C L 36.2 C L Pulse Rate Respiratory Rate Blood Pressure Pulse Oximetry 100 Oxygen Delivery BiPAP Oxygen Flow Rate Fraction of Inspired Oxygen 30 09/21/24 04:00 09/21/24 04:35 09/21/24 05:05 Temperature 36.4 C L Pulse Rate 84 92 84 Respiratory Rate 21 H 24 H Blood Pressure 109/57 L Pulse Oximetry 99 97 Oxygen Delivery BiPAP Oxygen Flow Rate Fraction of Inspired Oxygen 09/21/24 06:00 09/21/24 08:00 09/21/24 08:00 Temperature 36.3 C L Pulse Rate 104 H 88 100 Respiratory Rate 18 23 H Blood Pressure 153/93 H Pulse Oximetry 99 96 Oxygen Delivery Room Air Oxygen Flow Rate Fraction of Inspired Oxygen 24 09/21/24 08:00 09/21/24 08:10 09/21/24 08:13 Temperature Pulse Rate 95 100 101 H Respiratory Rate 25 H 21 H Blood Pressure Pulse Oximetry 100 Oxygen Delivery BiPAP Oxygen Flow Rate Fraction of Inspired Oxygen 09/21/24 08:21 09/21/24 10:00 09/21/24 10:11 Temperature Pulse Rate 95 105 H Respiratory Rate 19 Blood Pressure Pulse Oximetry 95 Oxygen Delivery Room Air Oxygen Flow Rate Fraction of Inspired Oxygen 09/21/24 12:00 09/21/24 12:00 09/21/24 12:00 Temperature 36.5 C Pulse Rate 93 93 96 Respiratory Rate 25 H 24 H Blood Pressure 154/84 H Pulse Oximetry 91 96 Oxygen Delivery High Flow Therapy with Na Oxygen Flow Rate 35 Fraction of Inspired Oxygen 24 09/21/24 12:48 09/21/24 14:00 09/21/24 14:10 Temperature Pulse Rate 100 97 99 Respiratory Rate 23 H 18 Blood Pressure Pulse Oximetry 96 Oxygen Delivery High Flow Therapy with Na Oxygen Flow Rate 35 Fraction of Inspired Oxygen 24 09/21/24 14:24 09/21/24 16:00 09/21/24 16:00 Temperature 36.6 C Pulse Rate 96 105 H 101 H Respiratory Rate 24 H 23 H 24 H Blood Pressure 149/83 H Pulse Oximetry 95 95 Oxygen Delivery High Flow Therapy with Na Oxygen Flow Rate 35 Fraction of Inspired Oxygen 24 09/21/24 16:00 09/21/24 16:57 Temperature Pulse Rate 101 H 103 H Respiratory Rate 24 H Blood Pressure Pulse Oximetry 96 Oxygen Delivery High Flow Therapy with Na Oxygen Flow Rate 35 Fraction of Inspired Oxygen 24 Intake/Output Intake/Output: Intake & Output 09/18/24 09/19/24 09/20/24 09/21/24 23:59 23:59 23:59 23:59 Intake Total 1865 2007 1162 100 Output Total 550 080 951 7512 Balance 1315 1108 1062 -784 Meds/Results Medications: Active Medications Generic Name Dose Route Start Last Admin Trade Name Freq PRN Reason Stop Dose Admin Acetaminophen 650 mg 09/10/24 00:24 09/14/24 05:16 Acetaminophen 325 Mg Tablet PO 650 mg Q4H PRN Administration Mild Pain (1-3) or Fever Albuterol/Ipratropium 3 ml 09/19/24 20:00 09/21/24 14:00 Ipratropium 0.5 Mg/Albuterol Sulfate 2.5 Mg Ampul.Neb 3 Ml INHALATION 3 ml Q6HRT PJ Administration Aspirin 81 mg 09/15/24 09:00 09/21/24 09:46 Aspirin 81 Mg Enteric Tablet PO 81 mg QAM PJ Administration Atorvastatin Calcium 40 mg 09/15/24 09:00 09/21/24 09:46 Atorvastatin 40 Mg Tablet PO 40 mg DAILY PJ Administration Dextrose 12.5 gm 09/10/24 09:20 Dextrose 50% 25 Gm/50 Ml Syringe IV PUSH PRN PRN Hypoglycemia Protocol Dorzolamide/Timolol 1 drop 09/13/24 09:40 09/21/24 09:47 Dorzolamide/Timolol Ophth Sarah 10 Ml Bottle EACH EYE 1 drop Q12HR PJ Administration Enoxaparin Sodium 30 mg 09/11/24 09:00 09/18/24 09:42 Enoxaparin 30 Mg/0.3 Ml Syringe SUB-Q 30 mg DAILY PJ Administration Glucagon 1 mg 09/10/24 09:20 Glucagon For Inj 1 Mg Vial IM PRN PRN Hypoglycemia Protocol Glucose 15 gm 09/10/24 09:20 Glucose Oral Gel 15 Gm Of Glucse In 37.5 Gm Tube PO PRN PRN Hypoglycemia Protocol Dextrose 1,000 mls @ 100 mls/hr 09/10/24 09:20 Dextrose 5% 1,000 Ml IVPB PRN PRN Hypoglycemia Protocol Ceftriaxone Sodium 2 gm in 100 mls @ 200 mls/hr 09/18/24 12:45 09/21/24 09:46 Rocephin 2 Gm/Ns 100 Ml IVPB 200 mls/hr Q12HR PJ Administration Ampicillin Sodium 2 gm in 100 mls @ 200 mls/hr 09/18/24 14:00 09/21/24 15:04 Ampicillin 2 Gm/Ns 100 Ml IVPB 200 mls/hr Q8HR PJ Administration Acyclovir Sodium 900 mg/ 268 mls @ 249.625 mls/hr 09/18/24 18:00 09/20/24 19:29 Dextrose IVPB Infused Q24H PJ Infusion Sodium Bicarbonate 100 meq/ 1,100 mls @ 75 mls/hr 09/21/24 07:00 09/21/24 07:30 Sterile Water IV CONT 150 mls/hr .[id number] PJ Administration Vancomycin HCl 1,500 mg in 500 mls @ 250 mls/hr 09/22/24 00:00 Vancomycin 1,500 Mg/Ns 500 Ml IVPB Q48H PJ Insulin Aspart 4 - 8 units 09/21/24 00:00 09/21/24 12:04 Insulin Aspart (*Bkc) 100 Units/Ml SUB-Q 6 units Q6HR PJ Administration Protocol Methylprednisolone Sodium Succinate 40 mg 09/19/24 06:05 09/21/24 12:04 Methylprednisolone Sod Succ 40 Mg Vial IV PUSH 40 mg Q6HR PJ Administration Mirtazapine 7.5 mg 09/13/24 09:50 09/14/24 09:00 Mirtazapine 7.5 Mg Tablet PO 7.5 mg DAILY PJ Administration Ondansetron HCl 4 mg 09/10/24 00:24 09/10/24 13:19 Ondansetron Inj 4 Mg/2 Ml Vial IV PUSH 4 mg Q4H PRN Administration Nausea Pantoprazole Sodium 40 mg 09/11/24 09:00 09/21/24 09:46 Pantoprazole 40 Mg Tablet PO 40 mg QAM PJ Administration Sodium Chloride 20 ml 09/11/24 08:00 Central Line Flush IV PUSH PRN PRN after blood draws Umeclidinium [place] 1 puff 09/10/24 09:00 09/21/24 08:23 Umeclidinium [place] 62.5 Mcg Ellipta INHALATION Not Given DAILY [facility] Radiology Results: ITS Impressions Chest/Abdomen/Pelvis CT 09/09/24 21:59 IMPRESSION: CHEST: 1. Right pleural effusion. 2. No other definite acute cardiopulmonary pathology seen. 3. Slightly dilated esophagus which may indicate reflux esophagitis. ABDOMEN/PELVIS: 1. No evidence of appendicitis, diverticulitis or intestinal obstruction. 2. Bilateral renal cysts with small density in the right kidney lower pole. Follow-up advised. 3. Bilateral fat containing inguinal hernias. Small fat-containing umbilical hernia. Venous Doppler Study 09/11/24 10:07 IMPRESSION: 1: No lower extremity deep venous thrombosis. Chest CT 09/15/24 05:40 Impression: [id number] bilateral pleural effusions with probable minimal interstitial edema and minimal bibasilar atelectatic change. Carotid Doppler Study 09/15/24 05:43 Impression: Mildly elevated velocity in the right internal carotid artery suggests moderate (50-69%) stenosis, though noted significant plaque clearly evident. Antegrade flow in the bilateral vertebral arteries. Note: The methodology used is an indirect measurement validated against a direct method (such as the NASCET criteria) that compares diameters at the stenosis to the distal ICA. Brain MRI 09/15/24 15:43 IMPRESSION: 1. 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 No acute intracranial process. 2. Age-related changes including mild diffuse volume loss and mild scattered nonspecific white matter T2 hyperintensity consistent with chronic small vessel ischemic disease. Modified Barium Swallow 09/16/24 13:13 IMPRESSION: Patient tolerated regular consistency oral feedings in the upright position. Please correlate with speech pathologist findings and specific feeding recommendations. Chest/Abdomen CT 09/16/24 13:52 IMPRESSION: 1. Unchanged small bilateral posterior layering pleural effusions with dependent atelectasis in both lungs. No pulmonary edema or pneumonia in the aerated portions of the lungs. Head CT 09/19/24 16:37 IMPRESSION: No acute intracranial findings. Lumbar Puncture Fluoroscopy 09/19/24 17:48 IMPRESSION: 1. Successful fluoro-guided lumbar puncture with normal opening pressure of 18 cm water which yielded only 2.5 mm of clear CSF. Chest X-Ray 09/21/24 12:34 Impression: Minimal pleural effusions with mild bibasilar pulmonary edema/atelectasis. Labs Labs: Laboratory Results - last 24 hr 09/18/24 09/20/24 09/20/24 13:20 03:56 17:39 WBC RBC Hgb 7.9 L Hct 27.5 L MCV MCH MCHC RDW Plt Count MPV Immature Gran % (Auto) Neut % (Auto) Lymph % (Auto) Arthur % (Auto) Eos % (Auto) Baso % (Auto) Lymph # (Auto) Arthur # (Auto) Eos # (Auto) Baso # (Auto) Abs Immat Gran (auto) Absolute Neuts (auto) Absolute Nucleated RBC Band Neutrophils % Nucleated RBC % Platelet Estimate Anisocytosis Ovalocytes Schistocytes Puncture Site ABG pH ABG pCO2 ABG pO2 ABG PO2/FiO2 Ratio ABG HCO3 ABG O2 Saturation ABG O2 Content ABG Base Excess A-a Gradient Oxyhemoglobin Carboxyhemoglobin Methemoglobin Reduced Hemoglobin Total Hemoglobin O2 Delivery Device O2 Liters/Min FiO2 Expiratory Pressure Inspiratory Pressure Sodium Potassium Chloride Carbon Dioxide Anion Gap BUN Creatinine Estim Creat Clear Calc Estimated GFR Glucose POC Capillary Glucose Calcium Magnesium Iron TIBC % Saturation Ferritin Total Bilirubin AST ALT Alkaline Phosphatase Lactate Dehydrogenase Total Creatine Kinase Total Protein Albumin Prostate Specific Ag Urine Eosinophils U Random Total Protein Ur Random Sodium Ur Random Urea Urine Creatinine Protein/Creat Ratio 2 Vancomycin Trough VZV IgM Antibody 0.23 Crossmatch See Detail Enhanced Crossmatch See Detail 09/20/24 09/20/24 09/20/24 18:57 19:41 22:36 WBC RBC Hgb Hct MCV MCH MCHC RDW Plt Count MPV Immature Gran % (Auto) Neut % (Auto) Lymph % (Auto) Arthur % (Auto) Eos % (Auto) Baso % (Auto) Lymph # (Auto) Arthur # (Auto) Eos # (Auto) Baso # (Auto) Abs Immat Gran (auto) Absolute Neuts (auto) Absolute Nucleated RBC Band Neutrophils % Nucleated RBC % Platelet Estimate Anisocytosis Ovalocytes Schistocytes Puncture Site ABG pH ABG pCO2 ABG pO2 ABG PO2/FiO2 Ratio ABG HCO3 ABG O2 Saturation ABG O2 Content ABG Base Excess A-a Gradient Oxyhemoglobin Carboxyhemoglobin Methemoglobin Reduced Hemoglobin Total Hemoglobin O2 Delivery Device O2 Liters/Min FiO2 Expiratory Pressure Inspiratory Pressure Sodium Potassium Chloride Carbon Dioxide Anion Gap BUN Creatinine Estim Creat Clear Calc Estimated GFR Glucose POC Capillary Glucose 326 H Calcium Magnesium Iron 23 L TIBC 139 L % Saturation 17 L Ferritin 101.00 Total Bilirubin AST ALT Alkaline Phosphatase Lactate Dehydrogenase 102 L Total Creatine Kinase Total Protein 5.0 L Albumin Prostate Specific Ag < 0.1 Urine Eosinophils None seen U Random Total Protein 104 Ur Random Sodium Ur Random Urea Urine Creatinine Protein/Creat Ratio 2 Vancomycin Trough VZV IgM Antibody Crossmatch Enhanced Crossmatch 09/20/24 09/20/24 09/20/24 22:36 22:36 23:55 WBC RBC Hgb Hct MCV MCH MCHC RDW Plt Count MPV Immature Gran % (Auto) Neut % (Auto) Lymph % (Auto) Arthur % (Auto) Eos % (Auto) Baso % (Auto) Lymph # (Auto) Arthur # (Auto) Eos # (Auto) Baso # (Auto) Abs Immat Gran (auto) Absolute Neuts (auto) Absolute Nucleated RBC Band Neutrophils % Nucleated RBC % Platelet Estimate Anisocytosis Ovalocytes Schistocytes Puncture Site ABG pH ABG pCO2 ABG pO2 ABG PO2/FiO2 Ratio ABG HCO3 ABG O2 Saturation ABG O2 Content ABG Base Excess A-a Gradient Oxyhemoglobin Carboxyhemoglobin Methemoglobin Reduced Hemoglobin Total Hemoglobin O2 Delivery Device O2 Liters/Min FiO2 Expiratory Pressure Inspiratory Pressure Sodium Potassium Chloride Carbon Dioxide Anion Gap BUN Creatinine Estim Creat Clear Calc Estimated GFR Glucose POC Capillary Glucose 380 H Calcium Magnesium Iron TIBC % Saturation Ferritin Total Bilirubin AST ALT Alkaline Phosphatase Lactate Dehydrogenase Total Creatine Kinase Total Protein Albumin Prostate Specific Ag Urine Eosinophils U Random Total Protein 96 Ur Random Sodium 47 Ur Random Urea 318 Urine Creatinine 50.8 51.0 Protein/Creat Ratio 2 2.05 H Vancomycin Trough VZV IgM Antibody Crossmatch Enhanced Crossmatch 09/21/24 09/21/24 09/21/24 01:55 03:54 05:54 WBC 18.8 H RBC 3.10 L Hgb 7.7 L Hct 26.1 L MCV 84.2 MCH 24.8 L MCHC 29.5 L RDW 17.2 H Plt Count 511 H MPV 9.8 Immature Gran % (Auto) 0.7 H Neut % (Auto) 93.8 H Lymph % (Auto) 2.4 L Arthur % (Auto) 3.0 Eos % (Auto) 0.0 Baso % (Auto) 0.1 L Lymph # (Auto) 0.46 L Arthur # (Auto) 0.6 Eos # (Auto) 0.0 Baso # (Auto) 0.0 Abs Immat Gran (auto) 0.14 H Absolute Neuts (auto) 17.7 H Absolute Nucleated RBC 0.080 H Band Neutrophils % Not Reportable Nucleated RBC % 0.4 H Platelet Estimate Increased Anisocytosis 1+ Ovalocytes 1+ Schistocytes None seen Puncture Site Right radial ABG pH 7.350 ABG pCO2 35.2 ABG pO2 97.6 ABG PO2/FiO2 Ratio 3.25 ABG HCO3 19.0 L ABG O2 Saturation 97.2 ABG O2 Content 12.1 L ABG Base Excess -6.0 A-a Gradient 74.9 Oxyhemoglobin 96.3 Carboxyhemoglobin 1.1 Methemoglobin 0.1 Reduced Hemoglobin 2.5 Total Hemoglobin 8.8 L O2 Delivery Device Bipap O2 Liters/Min Not Reportable FiO2 30 Expiratory Pressure 8 Inspiratory Pressure 16 Sodium 138 Potassium 3.6 Chloride 104 Carbon Dioxide 19 L Anion Gap 15 H BUN 61 H D Creatinine 3.70 H Estim Creat Clear Calc 16 Estimated GFR 16 L Glucose 411 H POC Capillary Glucose 402 H Calcium 8.4 Magnesium 2.3 Iron TIBC % Saturation Ferritin Total Bilirubin 0.2 AST 27 ALT 11 Alkaline Phosphatase 106 Lactate Dehydrogenase Total Creatine Kinase 68 Total Protein 5.3 L Albumin 3.0 L Prostate Specific Ag Urine Eosinophils U Random Total Protein Ur Random Sodium Ur Random Urea Urine Creatinine Protein/Creat Ratio 2 Vancomycin Trough VZV IgM Antibody Crossmatch Enhanced Crossmatch 09/21/24 09/21/24 12:01 13:01 WBC RBC Hgb Hct MCV MCH MCHC RDW Plt Count MPV Immature Gran % (Auto) Neut % (Auto) Lymph % (Auto) Arthur % (Auto) Eos % (Auto) Baso % (Auto) Lymph # (Auto) Arthur # (Auto) Eos # (Auto) Baso # (Auto) Abs Immat Gran (auto) Absolute Neuts (auto) Absolute Nucleated RBC Band Neutrophils % Nucleated RBC % Platelet Estimate Anisocytosis Ovalocytes Schistocytes Puncture Site ABG pH ABG pCO2 ABG pO2 ABG PO2/FiO2 Ratio ABG HCO3 ABG O2 Saturation ABG O2 Content ABG Base Excess A-a Gradient Oxyhemoglobin Carboxyhemoglobin Methemoglobin Reduced Hemoglobin Total Hemoglobin O2 Delivery Device O2 Liters/Min FiO2 Expiratory Pressure Inspiratory Pressure Sodium Potassium Chloride Carbon Dioxide Anion Gap BUN Creatinine Estim Creat Clear Calc Estimated GFR Glucose POC Capillary Glucose 379 H Calcium Magnesium Iron TIBC % Saturation Ferritin Total Bilirubin AST ALT Alkaline Phosphatase Lactate Dehydrogenase Total Creatine Kinase Total Protein Albumin Prostate Specific Ag Urine Eosinophils U Random Total Protein Ur Random Sodium Ur Random Urea Urine Creatinine Protein/Creat Ratio 2 Vancomycin Trough 23.0 H VZV IgM Antibody Crossmatch Enhanced Crossmatch Quality VTE Prophylaxis VTE prophylaxis: pharmacologic ordered
[2024-09-21] MEDS: SODIUM BICARBONATE 8.4% 100 MEQ in WATER, STERILE FOR INJECTION 1,000 ML 75 MEQ IV CONT (17:33)
[2024-09-21] MEDS: ACYCLOVIR SODIUM IVPB 900 MG in DEXTROSE 5% IN WATER 250 ML 250 MG IVPB (17:33)
[2024-09-21 17:44] LABS: Albumin Level 3.3 g/dL (3.5-5.1); Anion Gap 14 mmol/L (4-12); Blood Urea Nitrogen 68 mg/dL (9-20); Calcium 8.4 mg/dL (8.4-10.2); Carbon Dioxide 22 mmol/L (22-30); Chloride 101 mmol/L (98-107); Estimated CRCL calculation 15 ml/min; Estimated Glomerular Filt Rate 16; Glucose 339 mg/dL (65-110); Phosphorus 4.1 mg/dL (2.5-4.5); Potassium 3.5 mmol/L (3.4-5.0); Sodium 137 mmol/L (137-145)
[2024-09-21 17:52] LABS: Glucose Point of Care 335 mg/dl (65-105)
[2024-09-21 17:59] LABS: Varicella IgG Antibody 7.02 S/CO
[2024-09-22] VITALS (52 sets, daily range): BP systolic 128–181; BP diastolic 78–117; PULSE 80–117; RESP 13–37; TEMP 35.4–36.3; O2SAT 92–100
[2024-09-22 00:15] LABS: Glucose Point of Care 371 mg/dl (65-105)
[2024-09-22] MEDS: methylPREDNISolone SOD SUCC 40 MG VIAL IV PUSH ×3 (00:19→11:27)
[2024-09-22] MEDS: VANCOMYCIN 1,500 MG/NS 500 ML 1,500 MG/500 ML BAG 250 MG IVPB (00:20)
[2024-09-22] MEDS: INSULIN ASPART (*BKC) 100 UNITS/ML SUB-Q ×4 (00:20→18:00)
[2024-09-22] MEDS: IPRATROPIUM 0.5 MG/ALBUTEROL SULFATE 2.5 MG AMPUL.NEB 3 ML INHALATION ×4 (02:16→19:07)
[2024-09-22 04:13] LABS: Basophils Percent Auto 0.1 % (0.2-1.2); Hematocrit 29.2 % (42.0-52.0); Hemoglobin 8.6 g/dL (14.0-18.0); Immature Granulocyte Absolute 0.17 K/mm3 (0.00-0.031); Immature Granulocyte Percent A 0.9 % (0-0.5); Lymphocytes Absolute Auto 0.48 K/mm3 (0.9-3.2); Lymphocytes Percent Auto 2.7 % (18.3-44.2); Mean Corpuscular HGB Conc 29.5 g/dl (32-36); Mean Corpuscular Hemoglobin 24.4 pg (26-34); Mean Platelet Volume 9.7 fl (7.4-10.4); Monocytes Absolute Auto 0.8 K/mm3 (0.1-0.6); Monocytes Percent Auto 4.3 % (2.6-8.5); Neutrophils Absolute Auto 16.5 K/mm3 (1.3-6.7); Nucleated Red Blood Cells Perc 0.3 % (0.0-0.2); Platelet Count Result 617 k/mm3 (150-375); Red Blood Count 3.52 M/mm3 (4.6-6.20); Red Cell Distribution Width 17.5 % (11.5-14.5); White Blood Count 17.9 K/mm3 (4.5-10.0)
[2024-09-22 04:20] LABS: Alanine Aminotransferase 12 U/L (6-50); Albumin Level 3.3 g/dL (3.5-5.1); Alkaline Phosphatase 109 U/L (38-126); Anion Gap 13 mmol/L (4-12); Aspartate Amino Transferase 28 U/L (17-59); Bilirubin,Total 0.4 mg/dL (0.2-1.3); Blood Urea Nitrogen 71 mg/dL (9-20); Calcium 8.4 mg/dL (8.4-10.2); Carbon Dioxide 23 mmol/L (22-30); Chloride 103 mmol/L (98-107); Estimated CRCL calculation 15 ml/min; Estimated Glomerular Filt Rate 16; Glucose 315 mg/dL (65-110); Magnesium 2.2 mg/dL (1.6-2.3); Phosphorus 4.3 mg/dL (2.5-4.5); Potassium 3.5 mmol/L (3.4-5.0); Sodium 139 mmol/L (137-145); Total Protein 5.8 g/dL (6.3-8.2)
[2024-09-22 04:32] LABS: Anisocytosis 1+; Band Neutrophils Percent 0 % (0-6); Burr Cells 1+; Hypochromasia 1+; Ovalocytes 1+; Platelet Estimate Increased (Adequate); Schistocytes None Seen
[2024-09-22 04:42] LABS: Alveolar/Arterial O2 Gradient 44.9 mmHg; Base Excess ABG -2.8 mEq/l (+/-2.0); Fractional Inspired Oxygen 24 %; Oxygen Saturation ABG 95.8 % (95.0-100.0); Oxyhemoglobin 94.9 % THb (90.0-100.0); PCO2 ABG 38.1 mmHg (35.0-45.0); PO2 ABG 80.9 mmHg (80.0-100.0); PO2 FiO2 Ratio Arterial Blood 3.37 %; Total Hemoglobin 9.7 g/dL (12.0-18.0)
[2024-09-22 04:54] LABS: Device HIGH FLOW THERAPY; Modified Allen's Test Pass; Site Drawn LEFT RADIAL
[2024-09-22] MEDS: AMPICILLIN 2 GM/NS 100 ML 2 GM/100 ML BAG IVPB ×3 (05:50→22:06)
[2024-09-22] MEDS: UMECLIDINIUM BROMIDE 62.5 MCG ELLIPTA 1 PUFF INHALATION (07:55)
[2024-09-22 08:12] LABS: NT Pro B Type Natriuretic Pept 18100 pg/mL (19.9-100)
[2024-09-22] MEDS: cefTRIAXone 2 GM/NS 100 ML 2 GM/100 ML BAG IVPB ×2 (08:25→20:30)
[2024-09-22] MEDS: DORZOLAMIDE/TIMOLOL OPHTH SOL 10 ML BOTTLE 1 DROP EACH EYE ×2 (08:26→20:32)
[2024-09-22 09:17] LABS: Procalcitonin. 0.6 ng/mL
--- NOTE | 2024-09-22 10:06 | P.PNNP_ITS ---
Progress Note: A&P Assessment and Plan (1) Acute kidney injury: Code(s): N17.9 - Acute kidney failure, unspecified Status: Acute Assessment and Plan: * slow improvement noted * admission creatinine was close to baseline (2.37mg/dl) * appears to have peaked/plateaued at 3.70mg/dl * suspect multifactorial etiology: * hypotension/shock on admission * sepsis/infection * insensible losses (high fevers on admission) * prerenal factors (poor oral/fluid intake prior to admission) * SARAH-I and chlorthalidone use prior to admission * other (?) * evaluation to date: * CT A/P x 2 without evidence of obstruction * urine electrolytes non-prerenal * urine eosinophils negative * CPK okay * evidence of proteinuria * reasonable urine output noted * follow trend repeat labs and UOP (2) Stage 4 chronic kidney disease: Code(s): N18.4 - Chronic kidney disease, stage 4 (severe) Status: Chronic Assessment and Plan: * baseline creatinine runs ~ 1.9 - 2.3mg/dl since 2021 * however, has fluctuated to extremes with recent admissions/hospitalizations at [facility] in the last couple of months... * outpatient labs since 2024 show creatinine seems to be running closer to 2.2 - 2.7mg/dl * last outpatient creatinine was 2.66mg/dl on 07/18/24 * discharge creatinine from August 2024 hospitalization was 2.99mg/dl * may have baseline creatinine given recurrent hospitalizations.... * baseline CKD is secondary to HTN, diabetes, vascular disease, and age-related change * follows with [facility] (Dr. Lin Guerrero) (3) Febrile illness: Code(s): R50.9 - Fever, unspecified Status: Acute Assessment and Plan: * as noted on presenation * evaluation to date noted: * UA was not reflective of UTI * CT C/A/P without contrast demonstrating right pleural effusion, slightly dilated esophagus, bilateral renal cyst, bilateral fat containing inguinal hernias and small fat containing umbilical hernia * blood cultures (from 09/09 and 09/12) with no growth to date * viral swan for COVID/RSV/influenza negative * venous duplex negative for DVTs * TTE with no significant findings * last CXR with new opacities of the right lower lung zone which could represent atelectasis or pneumonia * s/p lumbar puncture and CSF showed elevated elevated WBC and protein * elevated CRP and WBC noted * on empiric antibiotic therapy (to cover for pneumoina and meningitis) * continue supportive therapy (4) Slurred speech: Code(s): R47.81 - Slurred speech Status: Acute Assessment and Plan: * apparently noted on 09/14/24 * evaluation noted: * Brain MRI -- small old lacunar infarct at the right subinsular white matter; no acute intracranial process; age-related changes including mild diffuse volume loss and mild scattered nonspecific white matter T2 hyperintensity consistent with chronic small vessel ischemic disease * Echocardiogram (08/30) -- moderate aortic stenosis * Carotid Doppler -- mildly elevated velocity in the right internal carotid artery suggests moderate (50-69%) stenosis, though noted significant plaque clearly evident; antegrade flow in the bilateral vertebral arteries * repeat CT of head (09/19) -- negative * LP studies noted (aee #3) * on antibiotic therapy for possible meningitis * follow mental status and neuro checks (5) Chronic obstructive pulmonary disease: Code(s): J44.9 - Chronic obstructive pulmonary disease, unspecified Status: Acute Assessment and Plan: * continue nebulizer treatments PRN * on home Spiriva * supplemental oxygen as needed * night time BiPAP therapy (6) A-fib: Code(s): I48.91 - Unspecified atrial fibrillation Status: Chronic Assessment and Plan: * known history * rate control strategy * was on carvedilol at home * resume as blood presssure allows * not on anticoagulation at home due to history of bleeding gastric ulcer. (7) Hypertension: Code(s): I10 - Essential (primary) hypertension Status: Chronic Assessment and Plan: * BP initially on hold due given hypotension on presentation * was on coreg, lisinopril and chlorthalidone at home... * resume as clinical course dictated * follow trend of hemodynamics (8) Type 2 diabetes mellitus: Code(s): E11.9 - Type 2 diabetes mellitus without complications Status: Chronic Assessment and Plan: * follow accu-cheks * glycemic control per hospitalist Will continue to follow. L Subjective Date/time seen: 09/22/24 10:06 Interval history: Follow-up for acute kidney injury/acute renal failure on chronic kidney disease. Respiratory status/breathing seems better but he still reports some shortness of breath; on Airvo at the time of my visit; still with on/off confusion but able to follow simple commands; renal function/creatinine stable if not a bit better with increased urine output in the last 24 hours; weaned off bicarb IVFs; stable hemodynamics noted; awaiting transfer to [place]. Exam 2 Narrative: General: elderly and somewhat ill-appearing male in NAD Heart: normal S1 and S2; no rub Lungs: coarse breath sounds Abdomen: soft, nontender, nondistended, positive bowel sounds Extremities: no cyanosis or clubbing; no edema Skin: warm and intact Objective Data Vital Signs Vital Signs: Vital Signs Temp Pulse Resp BP Pulse Ox O2 Del Method O2 Flow Rate 09/22/24 10:00 104 H 09/22/24 08:15 90 20 09/22/24 08:00 101 H 09/22/24 08:00 97.2 F L 98 31 H 166/91 H 92 09/22/24 07:56 92 20 09/22/24 07:56 92 20 96 High Flow Therapy with Na 35 09/22/24 07:42 98 17 96 High Flow Nasal Cannula 35 09/22/24 06:00 97 09/22/24 04:00 96.4 F L 94 23 H 163/97 H 96 09/22/24 04:00 106 H 09/22/24 04:00 99 26 H 98 High Flow Nasal Cannula 35 09/22/24 02:25 99 27 H 09/22/24 02:16 101 H 26 H 09/22/24 02:00 90 09/22/24 00:28 97.1 F L 93 19 151/103 H 95 09/22/24 00:00 96.9 F L 99 26 H 181/78 H 98 09/22/24 00:00 101 H 09/22/24 00:00 99 26 H 98 High Flow Nasal Cannula 35 09/21/24 22:00 99 09/21/24 20:27 105 H 27 H 09/21/24 20:20 99 25 H 09/21/24 20:20 99 25 H 96 High Flow Therapy with Na 35 09/21/24 20:00 97.8 F 101 H 17 136/108 H 94 09/21/24 20:00 101 H 17 94 High Flow Nasal Cannula 35 09/21/24 18:00 107 H 09/21/24 16:57 103 H 24 H 96 High Flow Therapy with Na 35 09/21/24 16:00 101 H 09/21/24 16:00 101 H 24 H 95 High Flow Therapy with Na 35 09/21/24 16:00 97.8 F 105 H 23 H 149/83 H 95 Intake/Output Intake/Output: Intake & Output 09/19/24 09/20/24 09/21/24 09/22/24 23:59 23:59 23:59 23:59 Intake Total 2007 1162 1868 800 Output Total 151 431 1416 2225 Balance 1108 1062 131 -3191 Meds/Results Medications: Active Medications Generic Name Dose Route Start Last Admin Trade Name Freq PRN Reason Stop Dose Admin Acetaminophen 650 mg 09/10/24 00:24 09/14/24 05:16 Acetaminophen 325 Mg Tablet PO 650 mg Q4H PRN Administration Mild Pain (1-3) or Fever Albuterol/Ipratropium 3 ml 09/19/24 20:00 09/22/24 13:31 Ipratropium 0.5 Mg/Albuterol Sulfate 2.5 Mg Ampul.Neb 3 Ml INHALATION 3 ml Q6HRT PJ Administration Aspirin 81 mg 09/15/24 09:00 09/22/24 07:21 Aspirin 81 Mg Enteric Tablet PO Not Given QAM PJ Atorvastatin Calcium 40 mg 09/15/24 09:00 09/22/24 07:21 Atorvastatin 40 Mg Tablet PO Not Given DAILY PJ Dextrose 12.5 gm 09/10/24 09:20 Dextrose 50% 25 Gm/50 Ml Syringe IV PUSH PRN PRN Hypoglycemia Protocol Dorzolamide/Timolol 1 drop 09/13/24 09:40 09/22/24 08:26 Dorzolamide/Timolol Ophth Sarah 10 Ml Bottle EACH EYE 1 drop Q12HR PJ Administration Enoxaparin Sodium 30 mg 09/11/24 09:00 09/18/24 09:42 Enoxaparin 30 Mg/0.3 Ml Syringe SUB-Q 30 mg DAILY PJ Administration Glucagon 1 mg 09/10/24 09:20 Glucagon For Inj 1 Mg Vial IM PRN PRN Hypoglycemia Protocol Glucose 15 gm 09/10/24 09:20 Glucose Oral Gel 15 Gm Of Glucse In 37.5 Gm Tube PO PRN PRN Hypoglycemia Protocol Hydralazine HCl 10 mg 09/22/24 11:30 Hydralazine Hcl 20 Mg/Ml Vial IV PUSH Q6HR PRN Blood Pressure - High Dextrose 1,000 mls @ 100 mls/hr 09/10/24 09:20 Dextrose 5% 1,000 Ml IVPB PRN PRN Hypoglycemia Protocol Ceftriaxone Sodium 2 gm in 100 mls @ 200 mls/hr 09/18/24 12:45 09/22/24 08:50 Rocephin 2 Gm/Ns 100 Ml IVPB Infused Q12HR PJ Infusion Ampicillin Sodium 2 gm in 100 mls @ 200 mls/hr 09/18/24 14:00 09/22/24 13:32 Ampicillin 2 Gm/Ns 100 Ml IVPB Infused Q8HR PJ Infusion Acyclovir Sodium 900 mg/ 268 mls @ 249.625 mls/hr 09/18/24 18:00 09/21/24 19:00 Dextrose IVPB Infused Q24H PJ Infusion Vancomycin HCl 1,500 mg in 500 mls @ 250 mls/hr 09/22/24 00:00 09/22/24 06:45 Vancomycin 1,500 Mg/Ns 500 Ml IVPB Infused Q48H PJ Infusion Insulin Aspart 4 - 8 units 09/21/24 00:00 09/22/24 11:27 Insulin Aspart (*Bkc) 100 Units/Ml SUB-Q 6 units Q6HR PJ Administration Protocol Methylprednisolone Sodium Succinate 40 mg 09/19/24 06:05 09/22/24 11:27 Methylprednisolone Sod Succ 40 Mg Vial IV PUSH 40 mg Q6HR PJ Administration Mirtazapine 7.5 mg 09/13/24 09:50 09/14/24 09:00 Mirtazapine 7.5 Mg Tablet PO 7.5 mg DAILY PJ Administration Ondansetron HCl 4 mg 09/10/24 00:24 09/10/24 13:19 Ondansetron Inj 4 Mg/2 Ml Vial IV PUSH 4 mg Q4H PRN Administration Nausea Pantoprazole Sodium 40 mg 09/11/24 09:00 09/22/24 07:21 Pantoprazole 40 Mg Tablet PO Not Given QAM PJ Sodium Chloride 20 ml 09/11/24 08:00 Central Line Flush IV PUSH PRN PRN after blood draws Radiology Results: ITS Impressions Chest/Abdomen/Pelvis CT 09/09/24 21:59 IMPRESSION: CHEST: 1. Right pleural effusion. 2. No other definite acute cardiopulmonary pathology seen. 3. Slightly dilated esophagus which may indicate reflux esophagitis. ABDOMEN/PELVIS: 1. No evidence of appendicitis, diverticulitis or intestinal obstruction. 2. Bilateral renal cysts with small density in the right kidney lower pole. Follow-up advised. 3. Bilateral fat containing inguinal hernias. Small fat-containing umbilical hernia. Venous Doppler Study 09/11/24 10:07 IMPRESSION: 1: No lower extremity deep venous thrombosis. Chest CT 09/15/24 05:40 Impression: [id number] bilateral pleural effusions with probable minimal interstitial edema and minimal bibasilar atelectatic change. Carotid Doppler Study 09/15/24 05:43 Impression: Mildly elevated velocity in the right internal carotid artery suggests moderate (50-69%) stenosis, though noted significant plaque clearly evident. Antegrade flow in the bilateral vertebral arteries. Note: The methodology used is an indirect measurement validated against a direct method (such as the NASCET criteria) that compares diameters at the stenosis to the distal ICA. Brain MRI 09/15/24 15:43 IMPRESSION: 1. 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 No acute intracranial process. 2. Age-related changes including mild diffuse volume loss and mild scattered nonspecific white matter T2 hyperintensity consistent with chronic small vessel ischemic disease. Modified Barium Swallow 09/16/24 13:13 IMPRESSION: Patient tolerated regular consistency oral feedings in the upright position. Please correlate with speech pathologist findings and specific feeding recommendations. Chest/Abdomen CT 09/16/24 13:52 IMPRESSION: 1. Unchanged small bilateral posterior layering pleural effusions with dependent atelectasis in both lungs. No pulmonary edema or pneumonia in the aerated portions of the lungs. Head CT 09/19/24 16:37 IMPRESSION: No acute intracranial findings. Lumbar Puncture Fluoroscopy 09/19/24 17:48 IMPRESSION: 1. Successful fluoro-guided lumbar puncture with normal opening pressure of 18 cm water which yielded only 2.5 mm of clear CSF. Chest X-Ray 09/22/24 05:33 Impression: Minimal pleural effusions with questionable minimal bibasilar pulmonary edema. Labs Labs: Laboratory Tests 09/22/24 04:02 09/22/24 04:02 Calcium 8.4 Phosphorus 4.3 Magnesium 2.2 Total Bilirubin 0.4 AST 28 ALT 12 Alkaline Phosphatase 109 Total Protein 5.8 L Albumin 3.3 L
--- NOTE | 2024-09-22 10:08 | PCPTNOTE ---
Spoke with Hospitalist OK to discharge pt from therapy until medically appropriate/pt able to safely participate.
--- NOTE | 2024-09-22 10:22 | P.PNPL_ITS ---
Progress Note: A&P Assessment and Plan (1) GABRIELA (acute kidney injury): Code(s): N17.9 - Acute kidney failure, unspecified Status: Acute Assessment and Plan: Patient has acute kidney injury with metabolic acidosis. Lactic acid 0.9 on 09/20/2024. He was placed on BiPAP to help him compensate For the metabolic acidosis 09/20/24: BiPAP pressures increased to 16/8 and repeat blood gas 7.26/45/103. creatinine 3.41, serum bicarb 15 lactic acid 0.9. started on bicarb drip. 09/21/2024: creatinine 3.70. Serum bicarb 19. Patient is in the ICU. He was difficult to arouse but once he woke up on the BiPAP he was able to show 2 fingers and wiggle his toes. Currently on BiPAP rate of 18, pressure 16/8, inspiratory time 0.8, rise of 3 and 30% FiO2 with saturations 100%. He is in no respiratory distress. ABG this morning 7.35/35/98. Remains on the bicarb drip. Plan: Nephrology has been consulted. Patient is now more awake. Would attempt patient off BiPAP as tolerated. Goal saturation 90-94%, adjust oxygen accordingly. Above settings provide adequate ventilation should the patient need to go back on BiPAP. 09/22/2024: Patient wore Vapotherm 35 L 24% all night. Currently the patient i s awake but confused. He does show 2 fingers and wiggle toes. He says he has some shortness of breath. He is afebrile. I placed him on room air and after 11 minutes his saturation was 97%. White blood cell count 17.9, creatinine 3.66, BUN 71, serum bicarbonate 23 off of the bicarb drip now. ABG on Vapotherm 7.38/38/84. BNP 18051 which has increased from 6700 on 09/18/2024. Procalcitonin 0.6 which is decreased from 1.8 on 09/11/2024. Patient made 1000 mL of urine yesterday, he was positive 843 mL yesterday and since admission is positive 6.6 L. His weight is 90.3. Chest x-ray shows minimal bilateral effusions and mild bibasilar interstitial infiltrates with improved aeration since 09/21/2024 plan: Metabolic acidosis has improved and currently off BiPAP for 24 hours. ABG on Vapotherm 7.38//84. I have placed him on room air and his saturations are adequate at this time. He has elevated BNP and some congestion on his chest x-ray likely related to fluid overload from his acute kidney injury. Goal saturation 90-94%. Discussed with Dr. Miller, will sign off, call with questions. (2) Chronic obstructive pulmonary disease: Code(s): J44.9 - Chronic obstructive pulmonary disease, unspecified Status: Acute Assessment and Plan: Patient carries a diagnosis of COPD. Maintain on albuterol at home. I have no PFTs. His CT scan of the chest on 09/16/2024 with mild apical predominant centrilobular emphysema. 09/21/2024: Patient has no wheezing on exam. No evidence of pneumonia on last CT scan 09/16/2024. Plan: There is no evidence of a COPD exacerbation, bronchitis or pneumonia. From a pulmonary perspective patient does not require systemic steroids or antibiotics. Agree with Incruse Ellipta 62.5 at 1 puff q.day. goal saturation 90-94%. 09/22/2024: No wheezing. He does have some congestion and was started on DuoNebs. Plan: Continue DuoNebs q.6 hours. From a pulmonary perspective he does not require systemic steroids or antibiotics. Subjective Date/time seen: 09/22/24 10:22 Interval history: 09/21/2024: This is a new pulmonary consult for her respiratory failure. 83-year-old with a history of prostate cancer status post radiation treatment, hypertension, diabetes, CKD with baseline creatinine 1.9-2.3, atrial fibrillation and COPD. Recently patient admitted 07/30 through 08/07 for acute kidney injury secondary to diarrhea. 08/28-09/05 for aspiration pneumonia and COPD. Patient admitted to the hospital on 09/09/2024 with shortness of breath, hy potension, acute kidney injury With creatinine 2.37, and altered mental status. Had no evidence noted of pneumonia or UTI. He had hypotension requiring Levophed in the ICU. Was placed on cefepime and vancomycin. there is no evidence of COPD exacerbation. on 09/11 he remained febrile. He was placed on his home Spiriva. 6/3 new right lower lung zone infiltrate on his chest x- ray, 09/13 creatinine stable at 2.4. Room air saturations 95%. 09/14/2024 remain febrile, some cough mild shortness of breath. Slurred speech X1 week and neurology consult and had mild dysarthria and mild right supranuclear facial weakness. 09/15/2024: Room air saturations 90-91, creatinine 2.71. 09/18/2024: Started ceftriaxone, ampicillin, vancomycin and acyclovir due to possible meningitis. Unable to perform LP. 09/19/2024 Creatinine 2.83, ABG 7.23/48/95 patient started on BiPAP. 09/20/2024 BiPAP continued. ABG 7.21/52/109. BiPAP pressures increased to 16/8 and repeat blood gas 7./45/1 03. creatinine 3.41, serum bicarb 15 lactic acid 0.9. started on bicarb drip. 09/21/2024: Patient is in the ICU. He was difficult to arouse but once he woke up on the BiPAP he was able to show 2 fingers and wiggle his toes. Currently on BiPAP rate of 18, pressure 16/8, inspiratory time 0.8, rise of 3 and 30% FiO2 with saturations 100%. He is in no respiratory distress. ABG this morning 7.35/35/98. Remains on the bicarb drip. patient came off the BiPAP and was placed on room air. Patient was then started on Vapotherm 35 L 24% FiO2. 09/22/2024: Patient wore Vapotherm 35 L 24% all night. Currently the patient is awake but confused. He does show 2 fingers and wiggle toes. He says he has some shortness of breath. He is afebrile. I placed him on room air and after 11 minutes his saturation was 97%. White blood cell count 17.9, creatinine 3.66, BUN 71, serum bicarbonate 23 off of the bicarb drip now. ABG on Vapotherm 7.38/38/84. BNP 98031 which has increased from 6700 on 09/18/2024. Procalcitonin 0.6 which is decreased from 1.8 on 09/11/2024. Patient made 1000 mL of urine yesterday, he was positive 843 mL yesterday and since admission is positive 6.6 L. His weight is 90.3. Chest x-ray shows minimal bilateral effusions and mild bibasilar interstitial infiltrates with improved aeration since 09/21/2024. DATA: 09/16/24: EXAMINATION: CT chest abdomen wo con INDICATION: Assess for pneumonia COMPARISON: Chest CT dated 09/14/[address] chest, abdomen and pelvis dated 09/09/2024 FINDINGS: CHEST CT: No significant change in small bilateral posterior layering pleural effusions with mild dependent atelectasis in the right upper and bilateral lower lobes. No pneumonia or pulmonary edema in the aerated portions of the lungs. Heart size is normal. Atherosclerotic coronary artery and aortic valve calcific lesion. No pericardial effusion. Thoracic aorta is normal in caliber. No pathologically enlarged thoracic lymphadenopathy. There is some residual oral contrast material from the earlier modified barium swallow study and the esophagus. Mild thoracic spondylosis with bridging osteophytes at multiple levels consistent with diffuse idiopathic skeletal hyperostosis (DISH). ABDOMEN CT: Gallbladder is not visualized likely surgically absent. Liver, spleen, pancreas and bilateral adrenal glands are normal. 3 cm low-attenuation cyst at the posterior medial left kidney. Subcentimeter hyperdense exophytic proteinaceous/hemorrhagic cyst at the lower pole the right kidney. There is an additional 3.5 cm exophytic lesion at the posterior right kidney which appeared anechoic on ultrasound dated 09/28/2020 consistent with additional prone/hemorrhagic cyst. There is oral contrast material in the stomach and throughout much of the visualized small bowel. Several diverticula along the visualized descending colon without adjacent from trace stranding to suggest diverticulitis. No pathologically enlarged abdominal lymphadenopathy. Severe lumbar spondylosis. IMPRESSION: 1. Unchanged small bilateral posterior layering pleural effusions with dependent atelectasis in both lungs. No pulmonary edema or pneumonia in the aerated portions of the lungs. 09/13/24: Summary 1. Left ventricular chamber dimension is mildly enlarged. 2. Left ventricular systolic function is normal, estimated at 60-65. 3. The left ventricular diastolic function is indeterminate as it was not assessed. 4. Left atrial chamber dimension is mildly enlarged. 5. There is moderate aortic valve sclerosis. 6. The mitral valve has a mildly calcified annulus. Right Ventricle Right ventricular chamber dimension is normal. Right ventricular systolic function is normal. Right Atria Right atrial chamber dimension is normal. No RVSP calculated. 08/30/24: Echo Summary 1. Complete two-dimensional, color flow and Doppler transthoracic echocardiogram is performed. 2. Left ventricular chamber dimension is mildly enlarged. 3. Left ventricular systolic function is hyperdynamic, estimated at >70. 4. There is moderately increased left ventricular wall thickness. 5. The left ventricular diastolic function is abnormal. 6. Left atrial chamber dimension is mildly enlarged. 7. Right atrial chamber dimension is mildly enlarged. 8. There is moderate aortic valve stenosis. 9. There is trace aortic valve regurgitation. 10. There is mild mitral valve regurgitation. 11. The mitral valve annulus is mildly calcified. 12. There is mild tricuspid valve regurgitation. 13. There is mild pulmonic regurgitation. 14. The aortic root size at the sinus of Valsalva is mildly dilated. Right Ventricle Right ventricular chamber dimension is normal. Right ventricular systolic function is normal. Left Atria Left atrial chamber dimension is mildly enlarged. Right Atria Right atrial chamber dimension is mildly enlarged. Atrial Septum Intact interatrial septum visualized by color flow imaging. PASP 51. Review of Systems Review of Systems: ROS unobtainable: Yes unobtainable due to mental status Exam Const: General: comfortable HENMT: Head: normal to inspection Ears: hearing grossly normal bilaterally Eyes: General: appearance normal, both eyes and all related structures Neck: Neck: normal visual inspection Chest: Chest palpation & inspection: normal inspection of the chest Resp: Effort & Inspection: normal respiratory effort and able to speak in complete sentences Auscultation: crackles, no rales, no rhonchi, no wheezes and lung sounds not diminished Other: with few inspiratory crackles. No wheezes. Cardio: Jugular venous distension: no JVD GI: Inspection: normal to inspection Skin: General skin exam: normal color Neuro: Other: symmetrically shows 2 fingers bilaterally and symmetrically wiggles toes bilaterally to verbal command Extrem: General: normal to inspection Objective Data Vital Signs Vital Signs: Vital Signs - 24 hr 09/21/24 12:00 09/21/24 12:00 09/21/24 12:00 Temperature 36.5 C Pulse Rate 93 93 96 Respiratory Rate 25 H 24 H Blood Pressure 154/84 H Pulse Oximetry 91 96 Oxygen Delivery High Flow Therapy with Na Oxygen Flow Rate 35 Fraction of Inspired Oxygen 24 09/21/24 12:48 09/21/24 14:00 09/21/24 14:10 Temperature Pulse Rate 100 97 99 Respiratory Rate 23 H 18 Blood Pressure Pulse Oximetry 96 Oxygen Delivery High Flow Therapy with Na Oxygen Flow Rate 35 Fraction of Inspired Oxygen 24 09/21/24 14:24 09/21/24 16:00 09/21/24 16:00 Temperature 36.6 C Pulse Rate 96 105 H 101 H Respiratory Rate 24 H 23 H 24 H Blood Pressure 149/83 H Pulse Oximetry 95 95 Oxygen Delivery High Flow Therapy with Na Oxygen Flow Rate 35 Fraction of Inspired Oxygen 24 09/21/24 16:00 09/21/24 16:57 09/21/24 18:00 Temperature Pulse Rate 101 H 103 H 107 H Respiratory Rate 24 H Blood Pressure Pulse Oximetry 96 Oxygen Delivery High Flow Therapy with Na Oxygen Flow Rate 35 Fraction of Inspired Oxygen 24 09/21/24 20:00 09/21/24 20:00 09/21/24 20:20 Temperature 36.6 C Pulse Rate 101 H 101 H 99 Respiratory Rate 17 17 25 H Blood Pressure 136/108 H Pulse Oximetry 94 94 96 Oxygen Delivery High Flow Nasal Cannula High Flow Therapy with Na Oxygen Flow Rate 35 35 Fraction of Inspired Oxygen 24 09/21/24 20:20 09/21/24 20:27 09/21/24 22:00 Temperature Pulse Rate 99 105 H 99 Respiratory Rate 25 H 27 H Blood Pressure Pulse Oximetry Oxygen Delivery Oxygen Flow Rate Fraction of Inspired Oxygen 09/22/24 00:00 09/22/24 00:00 09/22/24 00:00 Temperature 36.1 C L Pulse Rate 99 101 H 99 Respiratory Rate 26 H 26 H Blood Pressure 181/78 H Pulse Oximetry 98 98 Oxygen Delivery High Flow Nasal Cannula Oxygen Flow Rate 35 Fraction of Inspired Oxygen 09/22/24 00:28 09/22/24 02:00 09/22/24 02:16 Temperature 36.2 C L Pulse Rate 93 90 101 H Respiratory Rate 19 26 H Blood Pressure 151/103 H Pulse Oximetry 95 Oxygen Delivery Oxygen Flow Rate Fraction of Inspired Oxygen 09/22/24 02:25 09/22/24 04:00 09/22/24 04:00 Temperature Pulse Rate 99 99 106 H Respiratory Rate 27 H 26 H Blood Pressure Pulse Oximetry 98 Oxygen Delivery High Flow Nasal Cannula Oxygen Flow Rate 35 Fraction of Inspired Oxygen 24 09/22/24 04:00 09/22/24 06:00 09/22/24 07:42 Temperature 35.8 C L Pulse Rate 94 97 98 Respiratory Rate 23 H 17 Blood Pressure 163/97 H Pulse Oximetry 96 96 Oxygen Delivery High Flow Nasal Cannula Oxygen Flow Rate 35 Fraction of Inspired Oxygen 24 09/22/24 07:56 09/22/24 07:56 09/22/24 08:00 Temperature 36.2 C L Pulse Rate 92 92 98 Respiratory Rate 20 20 31 H Blood Pressure 166/91 H Pulse Oximetry 96 92 Oxygen Delivery High Flow Therapy with Na Oxygen Flow Rate 35 Fraction of Inspired Oxygen 09/22/24 08:00 09/22/24 08:15 09/22/24 10:00 Temperature Pulse Rate 101 H 90 104 H Respiratory Rate 20 Blood Pressure Pulse Oximetry Oxygen Delivery Oxygen Flow Rate Fraction of Inspired Oxygen Intake/Output Intake/Output: Intake & Output 09/19/24 09/20/24 09/21/24 09/22/24 23:59 23:59 23:59 23:59 Intake Total 2007 1162 1868 700 Output Total 523 415 3301 875 Balance 1108 1062 843 -175 Meds/Results Medications: Active Medications Generic Name Dose Route Start Last Admin Trade Name Freq PRN Reason Stop Dose Admin Acetaminophen 650 mg 09/10/24 00:24 09/14/24 05:16 Acetaminophen 325 Mg Tablet PO 650 mg Q4H PRN Administration Mild Pain (1-3) or Fever Albuterol/Ipratropium 3 ml 09/19/24 20:00 09/22/24 07:55 Ipratropium 0.5 Mg/Albuterol Sulfate 2.5 Mg Ampul.Neb 3 Ml INHALATION 3 ml Q6HRT PJ Administration Aspirin 81 mg 09/15/24 09:00 09/22/24 07:21 Aspirin 81 Mg Enteric Tablet PO Not Given QAM PJ Atorvastatin Calcium 40 mg 09/15/24 09:00 09/22/24 07:21 Atorvastatin 40 Mg Tablet PO Not Given DAILY [facility] Dextrose 12.5 gm 09/10/24 09:20 Dextrose 50% 25 Gm/50 Ml Syringe IV PUSH PRN PRN Hypoglycemia Protocol Dorzolamide/Timolol 1 drop 09/13/24 09:40 09/22/24 08:26 Dorzolamide/Timolol Ophth Sarah 10 Ml Bottle EACH EYE 1 drop Q12HR PJ Administration Enoxaparin Sodium 30 mg 09/11/24 09:00 09/18/24 09:42 Enoxaparin 30 Mg/0.3 Ml Syringe SUB-Q 30 mg DAILY PJ Administration Glucagon 1 mg 09/10/24 09:20 Glucagon For Inj 1 Mg Vial IM PRN PRN Hypoglycemia Protocol Glucose 15 gm 09/10/24 09:20 Glucose Oral Gel 15 Gm Of Glucse In 37.5 Gm Tube PO PRN PRN Hypoglycemia Protocol Dextrose 1,000 mls @ 100 mls/hr 09/10/24 09:20 Dextrose 5% 1,000 Ml IVPB PRN PRN Hypoglycemia Protocol Ceftriaxone Sodium 2 gm in 100 mls @ 200 mls/hr 09/18/24 12:45 09/22/24 08:50 Rocephin 2 Gm/Ns 100 Ml IVPB Infused Q12HR PJ Infusion Ampicillin Sodium 2 gm in 100 mls @ 200 mls/hr 09/18/24 14:00 09/22/24 06:44 Ampicillin 2 Gm/Ns 100 Ml IVPB Infused Q8HR PJ Infusion Acyclovir Sodium 900 mg/ 268 mls @ 249.625 mls/hr 09/18/24 18:00 09/21/24 19:00 Dextrose IVPB Infused Q24H PJ Infusion Vancomycin HCl 1,500 mg in 500 mls @ 250 mls/hr 09/22/24 00:00 09/22/24 06:45 Vancomycin 1,500 Mg/Ns 500 Ml IVPB Infused Q48H PJ Infusion Insulin Aspart 4 - 8 units 09/21/24 00:00 09/22/24 05:50 Insulin Aspart (*Bkc) 100 Units/Ml SUB-Q 8 units Q6HR PJ Administration Protocol Methylprednisolone Sodium Succinate 40 mg 09/19/24 06:05 09/22/24 05:50 Methylprednisolone Sod Succ 40 Mg Vial IV PUSH 40 mg Q6HR PJ Administration Mirtazapine 7.5 mg 09/13/24 09:50 09/14/24 09:00 Mirtazapine 7.5 Mg Tablet PO 7.5 mg DAILY PJ Administration Ondansetron HCl 4 mg 09/10/24 00:24 09/10/24 13:19 Ondansetron Inj 4 Mg/2 Ml Vial IV PUSH 4 mg Q4H PRN Administration Nausea Pantoprazole Sodium 40 mg 09/11/24 09:00 09/22/24 07:21 Pantoprazole 40 Mg Tablet PO Not Given QAM PJ Sodium Chloride 20 ml 09/11/24 08:00 Central Line Flush IV PUSH PRN PRN after blood draws Umeclidinium Mcleod 1 puff 09/10/24 09:00 09/22/24 07:55 Umeclidinium Mcleod 62.5 Mcg Ellipta INHALATION 1 puff DAILY PJ Administration Radiology Results: ITS Impressions Chest/Abdomen/Pelvis CT 09/09/24 21:59 IMPRESSION: CHEST: 1. Right pleural effusion. 2. No other definite acute cardiopulmonary pathology seen. 3. Slightly dilated esophagus which may indicate reflux esophagitis. ABDOMEN/PELVIS: 1. No evidence of appendicitis, diverticulitis or intestinal obstruction. 2. Bilateral renal cysts with small density in the right kidney lower pole. Follow-up advised. 3. Bilateral fat containing inguinal hernias. Small fat-containing umbilical hernia. Venous Doppler Study 09/11/24 10:07 IMPRESSION: 1: No lower extremity deep venous thrombosis. Chest CT 09/15/24 05:40 Impression: [id number] bilateral pleural effusions with probable minimal interstitial edema and minimal bibasilar atelectatic change. Carotid Doppler Study 09/15/24 05:43 Impression: Mildly elevated velocity in the right internal carotid artery suggests moderate (50-69%) stenosis, though noted significant plaque clearly evident. Antegrade flow in the bilateral vertebral arteries. Note: The methodology used is an indirect measurement validated against a direct method (such as the NASCET criteria) that compares diameters at the stenosis to the distal ICA. Brain MRI 09/15/24 15:43 IMPRESSION: 1. 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 No acute intracranial process. 2. Age-related changes including mild diffuse volume loss and mild scattered nonspecific white matter T2 hyperintensity consistent with chronic small vessel ischemic disease. Modified Barium Swallow 09/16/24 13:13 IMPRESSION: Patient tolerated regular consistency oral feedings in the upright position. Please correlate with speech pathologist findings and specific feeding recommendations. Chest/Abdomen CT 09/16/24 13:52 IMPRESSION: 1. Unchanged small bilateral posterior layering pleural effusions with dependent atelectasis in both lungs. No pulmonary edema or pneumonia in the aerated portions of the lungs. Head CT 09/19/24 16:37 IMPRESSION: No acute intracranial findings. Lumbar Puncture Fluoroscopy 09/19/24 17:48 IMPRESSION: 1. Successful fluoro-guided lumbar puncture with normal opening pressure of 18 cm water which yielded only 2.5 mm of clear CSF. Chest X-Ray 09/22/24 05:33 Impression: Minimal pleural effusions with questionable minimal bibasilar pulmonary edema. Labs Labs: Laboratory Results - last 24 hr 09/18/24 09/20/24 09/21/24 13:20 19:41 12:01 WBC RBC Hgb Hct MCV MCH MCHC RDW Plt Count MPV Immature Gran % (Auto) Neut % (Auto) Lymph % (Auto) Parke % (Auto) Eos % (Auto) Baso % (Auto) Lymph # (Auto) Parke # (Auto) Eos # (Auto) Baso # (Auto) Abs Immat Gran (auto) Absolute Neuts (auto) Absolute Nucleated RBC Band Neutrophils % Nucleated RBC % Platelet Estimate Hypochromasia Anisocytosis Ovalocytes [place] Cells Schistocytes Puncture Site ABG pH ABG pCO2 ABG pO2 ABG PO2/FiO2 Ratio ABG HCO3 ABG O2 Saturation ABG O2 Content ABG Base Excess A-a Gradient Oxyhemoglobin Total Hemoglobin O2 Delivery Device O2 Liters/Min FiO2 Sodium Potassium Chloride Carbon Dioxide Anion Gap BUN Creatinine Estim Creat Clear Calc Estimated GFR Glucose POC Capillary Glucose 379 H Calcium Phosphorus Magnesium Total Bilirubin AST ALT Alkaline Phosphatase NT-Pro-B Natriuret Pep Total Protein 5.0 L Albumin Procalcitonin Vancomycin Trough VZV IgG Antibody 7.02 VZV IgM Antibody 0.23 09/21/24 09/21/24 09/21/24 13:01 17:17 17:35 WBC RBC Hgb Hct MCV MCH MCHC RDW Plt Count MPV Immature Gran % (Auto) Neut % (Auto) Lymph % (Auto) Parke % (Auto) Eos % (Auto) Baso % (Auto) Lymph # (Auto) Parke # (Auto) Eos # (Auto) Baso # (Auto) Abs Immat Gran (auto) Absolute Neuts (auto) Absolute Nucleated RBC Band Neutrophils % Nucleated RBC % Platelet Estimate Hypochromasia Anisocytosis Ovalocytes Vick Cells Schistocytes Puncture Site ABG pH ABG pCO2 ABG pO2 ABG PO2/FiO2 Ratio ABG HCO3 ABG O2 Saturation ABG O2 Content ABG Base Excess A-a Gradient Oxyhemoglobin Total Hemoglobin O2 Delivery Device O2 Liters/Min FiO2 Sodium 137 Potassium 3.5 Chloride 101 Carbon Dioxide 22 Anion Gap 14 H BUN 68 H Creatinine 3.71 H Estim Creat Clear Calc 15 Estimated GFR 16 L Glucose 339 H POC Capillary Glucose 335 H Calcium 8.4 Phosphorus 4.1 Magnesium Total Bilirubin AST ALT Alkaline Phosphatase NT-Pro-B Natriuret Pep Total Protein Albumin 3.3 L Procalcitonin Vancomycin Trough 23.0 H VZV IgG Antibody VZV IgM Antibody 09/22/24 09/22/24 09/22/24 00:07 03:56 04:02 WBC 17.9 H RBC 3.52 L Hgb 8.6 L Hct 29.2 L MCV 83.0 MCH 24.4 L MCHC 29.5 L RDW 17.5 H Plt Count 617 H MPV 9.7 Immature Gran % (Auto) 0.9 H Neut % (Auto) 92.0 H Lymph % (Auto) 2.7 L Parke % (Auto) 4.3 Eos % (Auto) 0.0 Baso % (Auto) 0.1 L Lymph # (Auto) 0.48 L Parke # (Auto) 0.8 H Eos # (Auto) 0.0 Baso # (Auto) 0.0 Abs Immat Gran (auto) 0.17 H Absolute Neuts (auto) 16.5 H Absolute Nucleated RBC 0.060 H Band Neutrophils % 0 Nucleated RBC % 0.3 H Platelet Estimate Increased Hypochromasia 1+ Anisocytosis 1+ Ovalocytes 1+ Vick Cells 1+ Schistocytes None seen Puncture Site ABG pH ABG pCO2 ABG pO2 ABG PO2/FiO2 Ratio ABG HCO3 ABG O2 Saturation ABG O2 Content ABG Base Excess A-a Gradient Oxyhemoglobin Total Hemoglobin O2 Delivery Device O2 Liters/Min FiO2 Sodium 139 Potassium 3.5 Chloride 103 Carbon Dioxide 23 Anion Gap 13 H BUN 71 H Creatinine 3.66 H Estim Creat Clear Calc 15 Estimated GFR 16 L Glucose 315 H POC Capillary Glucose 371 H Calcium 8.4 Phosphorus 4.3 Magnesium 2.2 Total Bilirubin 0.4 AST 28 ALT 12 Alkaline Phosphatase 109 NT-Pro-B Natriuret Pep 02709 H Total Protein 5.8 L Albumin 3.3 L Procalcitonin 0.6 Vancomycin Trough VZV IgG Antibody VZV IgM Antibody 09/22/24 04:31 WBC RBC Hgb Hct MCV MCH MCHC RDW Plt Count MPV Immature Gran % (Auto) Neut % (Auto) Lymph % (Auto) Parke % (Auto) Eos % (Auto) Baso % (Auto) Lymph # (Auto) Parke # (Auto) Eos # (Auto) Baso # (Auto) Abs Immat Gran (auto) Absolute Neuts (auto) Absolute Nucleated RBC Band Neutrophils % Nucleated RBC % Platelet Estimate Hypochromasia Anisocytosis Ovalocytes [place] Cells Schistocytes Puncture Site Left radial ABG pH 7.380 ABG pCO2 38.1 ABG pO2 80.9 ABG PO2/FiO2 Ratio 3.37 ABG HCO3 22.0 ABG O2 Saturation 95.8 ABG O2 Content 13.0 L ABG Base Excess -2.8 A-a Gradient 44.9 Oxyhemoglobin 94.9 Total Hemoglobin 9.7 L O2 Delivery Device High flow therapy O2 Liters/Min 35.0 FiO2 24 Sodium Potassium Chloride Carbon Dioxide Anion Gap BUN Creatinine Estim Creat Clear Calc Estimated GFR Glucose POC Capillary Glucose Calcium Phosphorus Magnesium Total Bilirubin AST ALT Alkaline Phosphatase NT-Pro-B Natriuret Pep Total Protein Albumin Procalcitonin Vancomycin Trough VZV IgG Antibody VZV IgM Antibody
--- NOTE | 2024-09-22 10:47 | PCSTNOTE ---
Bedside swallow evaluation order received four days ago on 09/18/24. Pt has not been able to be seen due to decreased medical condition. Order has been cancelled at this time. Reorder when medically stable for swallow eval.
[2024-09-22 11:28] LABS: Glucose Point of Care 309 mg/dl (65-105)
[2024-09-22] MEDS: hydrALAZINE HCL 20 MG/ML VIAL 10 MG IV PUSH (11:40)
--- NOTE | 2024-09-22 12:31 | PCNFU ---
Nutrition Follow-Up Complete: Unintentional weight loss related to poor appetite and intake as evidenced by pt report and charted intake Goal: PO intake 50% or greater of meals and supplements Patient is not meeting goal Pt current nutrition is NPO. Last recorded weight is 90.3 kg. Bowel Motility: Last reported BM 09/22 Labs Reviewed:Glu 315, BUN 71, Cr 3.6, Alb 3.3, Hgb 8.6,Hct 29.2 Meds Noted: NovoLog, Protonix, Lovenox, Remeron. Skin: WNL Additional Notes: Patient remains NPO, speech unable to evaluate due to mentation. Plans for transfer to [facility] once bed available. Monitor intake, wt, labs. Follow up in 3 days.
--- NOTE | 2024-09-22 12:32 | P.PNIM_ITS ---
Progress Note: A&P Assessment and Plan (1) Febrile illness: Code(s): R50.9 - Fever, unspecified Status: Acute Assessment and Plan: 09/09: Patient presented with fevers, weakness, hypotension -UA was not reflective of UTI -CT Ch/A/P without contrast demonstrating right pleural effusion, slightly dilated esophagus, bilateral renal cyst,. Bilateral fat containing inguinal hernias and small fat containing umbilical hernia. -09/09: BCx NGTD MRSA nasal swab negative. COVID, influenza and RSV PCR negative. Started on cefepime and vancomycin (09/09) but vanco stopped on 09/11. Venous duplex negative for DVT. CXR with new opacities of the right lower lung zone which could represent atelectasis or pneumonia with small right pleural effusion. Repeat BCx 09/12 NGTD CRP 8 -> 27. WBC higher at 12K. But fever curve better. Patient feels better. Continue Cefepime for now. add flagyl for anaerobic coverage 09/14/24. recheck mrsa positive. will add linezolid TTE with no signifciant findings. Hx of aspiration PNA so will have speech therapy evaluate. Consider BERNA to exclude endocarditis but felt unlikely with negative BCx. does not meet's Carnes's criteria. on ceftriaxone,ampicillin ,vancomycin and acyclovir due to possible meningitis Lactic acid is normal CRP and ESR is elevated. Possible source of infection UTI s/p Lumbar puncture and CSF showed elevated elevated WBC and protein continue above Anti-infectives monitor (2) Sepsis: Code(s): A41.9 - Sepsis, unspecified organism Status: Acute Assessment and Plan: Patient was hypotensive in the ER, received 30 cc/kg IV fluids and central line was inserted Levophed started but able to be weaned off Blood pressures stable Continue antibiotics as above (3) Chronic kidney disease, stage 3: Code(s): N18.30 - Chronic kidney disease, stage 3 unspecified Status: Acute Assessment and Plan: Patient with history of CKD (baseline 2.50-3.26) On admission creatinine was 2.37. -patient did diurese well as he was volume overloaded and congested -received albumin -urine output has been adequate Cr worsened during the hospital stay suggesting GABRIELA. Peaked to 3.6 now stable -continue to monitor renal function, electrolytes and urine output Nephrology consulted and board (4) Chronic obstructive pulmonary disease: Code(s): J44.9 - Chronic obstructive pulmonary disease, unspecified Status: Acute Assessment and Plan: No wheezing appreciated. Continue neb treatments. Continue home Spiriva now on 3 liters oxygen conitnue nighttime BiPAP BiPAP has been tapered off. Did have metabolic acidosis with uncompensated respiratory acidosis (5) A-fib: Code(s): I48.91 - Unspecified atrial fibrillation Status: Acute Assessment and Plan: History of AFib -on carvedilol at home -will hold for now as patient's BP still soft -heart rate is controlled for now Not on anticoagulation at home due to history of bleeding gastric ulcer. His last EGD 3-4 years ago (6) Hypertension: Code(s): I10 - Essential (primary) hypertension Status: Chronic Assessment and Plan: Patient on Coreg, lisinopril and chlorthalidone at home. titrate home meds with clinical course (7) Type 2 diabetes mellitus: Code(s): E11.9 - Type 2 diabetes mellitus without complications Status: Chronic Assessment and Plan: Glucose remains well controlled. Continue AccuCheks covering with sliding scale. Hypoglycemia protocol available as needed. Resume home lantus and aspart when able (8) Renal mass: Code(s): N28.89 - Other specified disorders of kidney and ureter Status: Acute Assessment and Plan: Incidental finding by CT showing a left upper pole cyst measuring 2.9 cm. Exophytic cyst is seen in the right kidney midpole measuring 3 cm. Tiny hypodense lesion seen in the right kidney lower pole most likely hemorrhagic cyst. Tiny mass cannot be excluded. Follow-up advised. awaiting transfer to [facility] for oncology eval and treat (9) Slurred speech: Code(s): R47.81 - Slurred speech Status: Acute Assessment and Plan: Noticed some slurred speech 09/14/24 Brain MRI:1. 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 No acute intracranial process. 2. Age-related changes including mild diffuse volume loss and mild scattered nonspecific white matter T2 hyperintensity consistent with chronic small vessel ischemic disease. Echocardiogram was performed on 08/30/2024 which shows moderate aortic stenosis Carotid Doppler:Mildly elevated velocity in the right internal carotid artery suggests moderate (50-69%) stenosis, though noted significant plaque clearly evident. Antegrade flow in the bilateral vertebral arteries. Following Neurology recommendation Status post lumbar puncture Started on ceftriaxone, ampicillin, Acyclovir and vancomycin Neuro check q.[address] head today 09/19 negative Will hold methylprednisolone Plan At the request of , she wanted to transfer the [facility] for continuity of care. Awaiting transfer to [facility] Subjective Date/time seen: 09/22/24 12:32 Interval history: Patient more awake alert still has slurred speech. Confusion persists. Off BiPAP and Airvo this a.m.. Discussed with Pulmonary. Patient accepted at [facility] and awaiting bed placement. Review of Systems Review of Systems: All systems reviewed & are unremarkable except as noted in HPI and below Exam Narrative: Patient is comfortable, slurred speech mild confusion patient repeats often HEENT: eyes are clear and none icteric LUNGS:CTA HEART: RR S1S2 ABD: BS+, Soft and nontender Lower extremities: no edema SKIN: nonjaundiced Neuro: grossly intact. Generalized weakness Objective Data Vital Signs Vital Signs: Vital Signs - 24 hr 09/21/24 12:48 09/21/24 14:00 09/21/24 14:10 Temperature Pulse Rate 100 97 99 Respiratory Rate 23 H 18 Blood Pressure Pulse Oximetry 96 Oxygen Delivery High Flow Therapy with Na Oxygen Flow Rate 35 Fraction of Inspired Oxygen 09/21/24 14:24 09/21/24 16:00 09/21/24 16:00 Temperature 97.8 F Pulse Rate 96 105 H 101 H Respiratory Rate 24 H 23 H 24 H Blood Pressure 149/83 H Pulse Oximetry 95 95 Oxygen Delivery High Flow Therapy with Na Oxygen Flow Rate 35 Fraction of Inspired Oxygen 09/21/24 16:00 09/21/24 16:57 09/21/24 18:00 Temperature Pulse Rate 101 H 103 H 107 H Respiratory Rate 24 H Blood Pressure Pulse Oximetry 96 Oxygen Delivery High Flow Therapy with Na Oxygen Flow Rate 35 Fraction of Inspired Oxygen 09/21/24 20:00 09/21/24 20:00 09/21/24 20:20 Temperature 97.8 F Pulse Rate 101 H 101 H 99 Respiratory Rate 17 17 25 H Blood Pressure 136/108 H Pulse Oximetry 94 94 96 Oxygen Delivery High Flow Nasal Cannula High Flow Therapy with Na Oxygen Flow Rate 35 35 Fraction of Inspired Oxygen 24 09/21/24 20:20 09/21/24 20:27 09/21/24 22:00 Temperature Pulse Rate 99 105 H 99 Respiratory Rate 25 H 27 H Blood Pressure Pulse Oximetry Oxygen Delivery Oxygen Flow Rate Fraction of Inspired Oxygen 09/22/24 00:00 09/22/24 00:00 09/22/24 00:00 Temperature 96.9 F L Pulse Rate 99 101 H 99 Respiratory Rate 26 H 26 H Blood Pressure 181/78 H Pulse Oximetry 98 98 Oxygen Delivery High Flow Nasal Cannula Oxygen Flow Rate 35 Fraction of Inspired Oxygen 24 09/22/24 00:28 09/22/24 02:00 09/22/24 02:16 Temperature 97.1 F L Pulse Rate 93 90 101 H Respiratory Rate 19 26 H Blood Pressure 151/103 H Pulse Oximetry 95 Oxygen Delivery Oxygen Flow Rate Fraction of Inspired Oxygen 09/22/24 02:25 09/22/24 04:00 09/22/24 04:00 Temperature Pulse Rate 99 99 106 H Respiratory Rate 27 H 26 H Blood Pressure Pulse Oximetry 98 Oxygen Delivery High Flow Nasal Cannula Oxygen Flow Rate 35 Fraction of Inspired Oxygen 24 09/22/24 04:00 09/22/24 06:00 09/22/24 07:42 Temperature 96.4 F L Pulse Rate 94 97 98 Respiratory Rate 23 H 17 Blood Pressure 163/97 H Pulse Oximetry 96 96 Oxygen Delivery High Flow Nasal Cannula Oxygen Flow Rate 35 Fraction of Inspired Oxygen 24 09/22/24 07:56 09/22/24 07:56 09/22/24 08:00 Temperature 97.2 F L Pulse Rate 92 92 98 Respiratory Rate 20 20 31 H Blood Pressure 166/91 H Pulse Oximetry 96 92 Oxygen Delivery High Flow Therapy with Na Oxygen Flow Rate 35 Fraction of Inspired Oxygen 24 09/22/24 08:00 09/22/24 08:15 09/22/24 10:00 Temperature Pulse Rate 101 H 90 104 H Respiratory Rate 20 Blood Pressure Pulse Oximetry Oxygen Delivery Oxygen Flow Rate Fraction of Inspired Oxygen 09/22/24 10:29 09/22/24 11:49 09/22/24 12:00 Temperature 96.2 F L Pulse Rate 101 H 99 109 H Respiratory Rate 22 H 22 H 35 H Blood Pressure 164/104 H Pulse Oximetry 99 96 96 Oxygen Delivery Nasal Cannula Nasal Cannula Oxygen Flow Rate 5 5 Fraction of Inspired Oxygen Intake/Output Intake/Output: Intake & Output 09/19/24 09/20/24 09/21/24 09/22/24 23:59 23:59 23:59 23:59 Intake Total 2007 1162 1868 700 Output Total 623 427 1788 875 Balance 1102 9187 843 -657 Meds/Results Medications: Active Medications Generic Name Dose Route Start Last Admin Trade Name Freq PRN Reason Stop Dose Admin Acetaminophen 650 mg 09/10/24 00:24 09/14/24 05:16 Acetaminophen 325 Mg Tablet PO 650 mg Q4H PRN Administration Mild Pain (1-3) or Fever Albuterol/Ipratropium 3 ml 09/19/24 20:00 09/22/24 07:55 Ipratropium 0.5 Mg/Albuterol Sulfate 2.5 Mg Ampul.Neb 3 Ml INHALATION 3 ml Q6HRT PJ Administration Aspirin 81 mg 09/15/24 09:00 09/22/24 07:21 Aspirin 81 Mg Enteric Tablet PO Not Given QAM PJ Atorvastatin Calcium 40 mg 09/15/24 09:00 09/22/24 07:21 Atorvastatin 40 Mg Tablet PO Not Given DAILY PJ Dextrose 12.5 gm 09/10/24 09:20 Dextrose 50% 25 Gm/50 Ml Syringe IV PUSH PRN PRN Hypoglycemia Protocol Dorzolamide/Timolol 1 drop 09/13/24 09:40 09/22/24 08:26 Dorzolamide/Timolol Ophth Sarah 10 Ml Bottle EACH EYE 1 drop Q12HR PJ Administration Enoxaparin Sodium 30 mg 09/11/24 09:00 09/18/24 09:42 Enoxaparin 30 Mg/0.3 Ml Syringe SUB-Q 30 mg DAILY PJ Administration Glucagon 1 mg 09/10/24 09:20 Glucagon For Inj 1 Mg Vial IM PRN PRN Hypoglycemia Protocol Glucose 15 gm 09/10/24 09:20 Glucose Oral Gel 15 Gm Of Glucse In 37.5 Gm Tube PO PRN PRN Hypoglycemia Protocol Hydralazine HCl 10 mg 09/22/24 11:30 Hydralazine Hcl 20 Mg/Ml Vial IV PUSH Q6HR PRN Blood Pressure - High Dextrose 1,000 mls @ 100 mls/hr 09/10/24 09:20 Dextrose 5% 1,000 Ml IVPB PRN PRN Hypoglycemia Protocol Ceftriaxone Sodium 2 gm in 100 mls @ 200 mls/hr 09/18/24 12:45 09/22/24 08:50 Rocephin 2 Gm/Ns 100 Ml IVPB Infused Q12HR PJ Infusion Ampicillin Sodium 2 gm in 100 mls @ 200 mls/hr 09/18/24 14:00 09/22/24 06:44 Ampicillin 2 Gm/Ns 100 Ml IVPB Infused Q8HR PJ Infusion Acyclovir Sodium 900 mg/ 268 mls @ 249.625 mls/hr 09/18/24 18:00 09/21/24 19:00 Dextrose IVPB Infused Q24H PJ Infusion Vancomycin HCl 1,500 mg in 500 mls @ 250 mls/hr 09/22/24 00:00 09/22/24 06:45 Vancomycin 1,500 Mg/Ns 500 Ml IVPB Infused Q48H PJ Infusion Insulin Aspart 4 - 8 units 09/21/24 00:00 09/22/24 11:27 Insulin Aspart (*Bkc) 100 Units/Ml SUB-Q 6 units Q6HR PJ Administration Protocol Methylprednisolone Sodium Succinate 40 mg 09/19/24 06:05 09/22/24 11:27 Methylprednisolone Sod Succ 40 Mg Vial IV PUSH 40 mg Q6HR PJ Administration Mirtazapine 7.5 mg 09/13/24 09:50 09/14/24 09:00 Mirtazapine 7.5 Mg Tablet PO 7.5 mg DAILY PJ Administration Ondansetron HCl 4 mg 09/10/24 00:24 09/10/24 13:19 Ondansetron Inj 4 Mg/2 Ml Vial IV PUSH 4 mg Q4H PRN Administration Nausea Pantoprazole Sodium 40 mg 09/11/24 09:00 09/22/24 07:21 Pantoprazole 40 Mg Tablet PO Not Given QAM [facility] Sodium Chloride 20 ml 09/11/24 08:00 Central Line Flush IV PUSH PRN PRN after blood draws Radiology Results: ITS Impressions Chest/Abdomen/Pelvis CT 09/09/24 21:59 IMPRESSION: CHEST: 1. Right pleural effusion. 2. No other definite acute cardiopulmonary pathology seen. 3. Slightly dilated esophagus which may indicate reflux esophagitis. ABDOMEN/PELVIS: 1. No evidence of appendicitis, diverticulitis or intestinal obstruction. 2. Bilateral renal cysts with small density in the right kidney lower pole. Follow-up advised. 3. Bilateral fat containing inguinal hernias. Small fat-containing umbilical hernia. Venous Doppler Study 09/11/24 10:07 IMPRESSION: 1: No lower extremity deep venous thrombosis. Chest CT 09/15/24 05:40 Impression: [id number] bilateral pleural effusions with probable minimal interstitial edema and minimal bibasilar atelectatic change. Carotid Doppler Study 09/15/24 05:43 Impression: Mildly elevated velocity in the right internal carotid artery suggests moderate (50-69%) stenosis, though noted significant plaque clearly evident. Antegrade flow in the bilateral vertebral arteries. Note: The methodology used is an indirect measurement validated against a direct method (such as the NASCET criteria) that compares diameters at the stenosis to the distal ICA. Brain MRI 09/15/24 15:43 IMPRESSION: 1. 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 No acute intracranial process. 2. Age-related changes including mild diffuse volume loss and mild scattered nonspecific white matter T2 hyperintensity consistent with chronic small vessel ischemic disease. Modified Barium Swallow 09/16/24 13:13 IMPRESSION: Patient tolerated regular consistency oral feedings in the upright position. Please correlate with speech pathologist findings and specific feeding recommendations. Chest/Abdomen CT 09/16/24 13:52 IMPRESSION: 1. Unchanged small bilateral posterior layering pleural effusions with dependent atelectasis in both lungs. No pulmonary edema or pneumonia in the aerated portions of the lungs. Head CT 09/19/24 16:37 IMPRESSION: No acute intracranial findings. Lumbar Puncture Fluoroscopy 09/19/24 17:48 IMPRESSION: 1. Successful fluoro-guided lumbar puncture with normal opening pressure of 18 cm water which yielded only 2.5 mm of clear CSF. Chest X-Ray 09/22/24 05:33 Impression: Minimal pleural effusions with questionable minimal bibasilar pulmonary edema. Labs Labs: Laboratory Results - last 24 hr 09/18/24 09/20/24 09/21/24 13:20 19:41 13:01 WBC RBC Hgb Hct MCV MCH MCHC RDW Plt Count MPV Immature Gran % (Auto) Neut % (Auto) Lymph % (Auto) [place] % (Auto) Eos % (Auto) Baso % (Auto) Lymph # (Auto) [place] # (Auto) Eos # (Auto) Baso # (Auto) Abs Immat Gran (auto) Absolute Neuts (auto) Absolute Nucleated RBC Band Neutrophils % Nucleated RBC % Platelet Estimate Hypochromasia Anisocytosis Ovalocytes Vick Cells Schistocytes Puncture Site ABG pH ABG pCO2 ABG pO2 ABG PO2/FiO2 Ratio ABG HCO3 ABG O2 Saturation ABG O2 Content ABG Base Excess A-a Gradient Oxyhemoglobin Total Hemoglobin O2 Delivery Device O2 Liters/Min FiO2 Sodium Potassium Chloride Carbon Dioxide Anion Gap BUN Creatinine Estim Creat Clear Calc Estimated GFR Glucose POC Capillary Glucose Calcium Phosphorus Magnesium Total Bilirubin AST ALT Alkaline Phosphatase NT-Pro-B Natriuret Pep Total Protein 5.0 L Albumin Procalcitonin Vancomycin Trough 23.0 H VZV IgG Antibody 7.02 VZV IgM Antibody 0.23 09/21/24 09/21/24 09/22/24 17:17 17:35 00:07 WBC RBC Hgb Hct MCV MCH MCHC RDW Plt Count MPV Immature Gran % (Auto) Neut % (Auto) Lymph % (Auto) [place] % (Auto) Eos % (Auto) Baso % (Auto) Lymph # (Auto) [place] # (Auto) Eos # (Auto) Baso # (Auto) Abs Immat Gran (auto) Absolute Neuts (auto) Absolute Nucleated RBC Band Neutrophils % Nucleated RBC % Platelet Estimate Hypochromasia Anisocytosis Ovalocytes [place] Cells Schistocytes Puncture Site ABG pH ABG pCO2 ABG pO2 ABG PO2/FiO2 Ratio ABG HCO3 ABG O2 Saturation ABG O2 Content ABG Base Excess A-a Gradient Oxyhemoglobin Total Hemoglobin O2 Delivery Device O2 Liters/Min FiO2 Sodium 137 Potassium 3.5 Chloride 101 Carbon Dioxide 22 Anion Gap 14 H BUN 68 H Creatinine 3.71 H Estim Creat Clear Calc 15 Estimated GFR 16 L Glucose 339 H POC Capillary Glucose 335 H 371 H Calcium 8.4 Phosphorus 4.1 Magnesium Total Bilirubin AST ALT Alkaline Phosphatase NT-Pro-B Natriuret Pep Total Protein Albumin 3.3 L Procalcitonin Vancomycin Trough VZV IgG Antibody VZV IgM Antibody 09/22/24 09/22/24 09/22/24 03:56 04:02 04:31 WBC 17.9 H RBC 3.52 L Hgb 8.6 L Hct 29.2 L MCV 83.0 MCH 24.4 L MCHC 29.5 L RDW 17.5 H Plt Count 617 H MPV 9.7 Immature Gran % (Auto) 0.9 H Neut % (Auto) 92.0 H Lymph % (Auto) 2.7 L [place] % (Auto) 4.3 Eos % (Auto) 0.0 Baso % (Auto) 0.1 L Lymph # (Auto) 0.48 L [place] # (Auto) 0.8 H Eos # (Auto) 0.0 Baso # (Auto) 0.0 Abs Immat Gran (auto) 0.17 H Absolute Neuts (auto) 16.5 H Absolute Nucleated RBC 0.060 H Band Neutrophils % 0 Nucleated RBC % 0.3 H Platelet Estimate Increased Hypochromasia 1+ Anisocytosis 1+ Ovalocytes 1+ Vick Cells 1+ Schistocytes None seen Puncture Site Left radial ABG pH 7.380 ABG pCO2 38.1 ABG pO2 80.9 ABG PO2/FiO2 Ratio 3.37 ABG HCO3 22.0 ABG O2 Saturation 95.8 ABG O2 Content 13.0 L ABG Base Excess -2.8 A-a Gradient 44.9 Oxyhemoglobin 94.9 Total Hemoglobin 9.7 L O2 Delivery Device High flow therapy O2 Liters/Min 35.0 FiO2 24 Sodium 139 Potassium 3.5 Chloride 103 Carbon Dioxide 23 Anion Gap 13 H BUN 71 H Creatinine 3.66 H Estim Creat Clear Calc 15 Estimated GFR 16 L Glucose 315 H POC Capillary Glucose Calcium 8.4 Phosphorus 4.3 Magnesium 2.2 Total Bilirubin 0.4 AST 28 ALT 12 Alkaline Phosphatase 109 NT-Pro-B Natriuret Pep 00477 H Total Protein 5.8 L Albumin 3.3 L Procalcitonin 0.6 Vancomycin Trough VZV IgG Antibody VZV IgM Antibody 09/22/24 11:21 WBC RBC Hgb Hct MCV MCH MCHC RDW Plt Count MPV Immature Gran % (Auto) Neut % (Auto) Lymph % (Auto) [place] % (Auto) Eos % (Auto) Baso % (Auto) Lymph # (Auto) [place] # (Auto) Eos # (Auto) Baso # (Auto) Abs Immat Gran (auto) Absolute Neuts (auto) Absolute Nucleated RBC Band Neutrophils % Nucleated RBC % Platelet Estimate Hypochromasia Anisocytosis Ovalocytes [place] Cells Schistocytes Puncture Site ABG pH ABG pCO2 ABG pO2 ABG PO2/FiO2 Ratio ABG HCO3 ABG O2 Saturation ABG O2 Content ABG Base Excess A-a Gradient Oxyhemoglobin Total Hemoglobin O2 Delivery Device O2 Liters/Min FiO2 Sodium Potassium Chloride Carbon Dioxide Anion Gap BUN Creatinine Estim Creat Clear Calc Estimated GFR Glucose POC Capillary Glucose 309 H Calcium Phosphorus Magnesium Total Bilirubin AST ALT Alkaline Phosphatase NT-Pro-B Natriuret Pep Total Protein Albumin Procalcitonin Vancomycin Trough VZV IgG Antibody VZV IgM Antibody
[2024-09-22] MEDS: FUROSEMIDE INJ 40 MG/4 ML VIAL 20 MG IV PUSH (13:02)
[2024-09-22] MEDS: ACYCLOVIR SODIUM IVPB 900 MG in DEXTROSE 5% IN WATER 250 ML 250 MG IVPB (17:37)
[2024-09-22 18:01] LABS: Glucose Point of Care 332 mg/dl (65-105)
[2024-09-23] VITALS (25 sets, daily range): BP systolic 138–170; BP diastolic 66–98; PULSE 76–122; RESP 12–22; TEMP 35.6–36.6; O2SAT 96–100
[2024-09-23] LABS: Glucose Point of Care 326 mg/dl (65-105)
[2024-09-23] MEDS: INSULIN ASPART (*BKC) 100 UNITS/ML SUB-Q ×4 (00:01→18:22)
[2024-09-23] MEDS: IPRATROPIUM 0.5 MG/ALBUTEROL SULFATE 2.5 MG AMPUL.NEB 3 ML INHALATION ×4 (03:03→20:49)
[2024-09-23 05:21] LABS: Basophils Percent Auto 0.1 % (0.2-1.2); Hematocrit 30.3 % (42.0-52.0); Immature Granulocyte Absolute 0.16 K/mm3 (0.00-0.031); Immature Granulocyte Percent A 1.1 % (0-0.5); Lymphocytes Absolute Auto 0.46 K/mm3 (0.9-3.2); Lymphocytes Percent Auto 3.1 % (18.3-44.2); Mean Corpuscular HGB Conc 29.7 g/dl (32-36); Mean Corpuscular Hemoglobin 24.8 pg (26-34); Mean Corpuscular Volume 83.5 fl (80-100); Mean Platelet Volume 9.9 fl (7.4-10.4); Monocytes Absolute Auto 1.2 K/mm3 (0.1-0.6); Neutrophils Percent Auto 87.7 % (45.5-73.1); Nucleated Red Blood Cells Perc 0.5 % (0.0-0.2); Platelet Count Result 651 k/mm3 (150-375); Red Blood Count 3.63 M/mm3 (4.6-6.20); Red Cell Distribution Width 17.5 % (11.5-14.5); White Blood Count 14.8 K/mm3 (4.5-10.0)
[2024-09-23 05:39] LABS: Alanine Aminotransferase 14 U/L (6-50); Albumin Level 3.4 g/dL (3.5-5.1); Alkaline Phosphatase 106 U/L (38-126); Anion Gap 13 mmol/L (4-12); Aspartate Amino Transferase 30 U/L (17-59); Bilirubin,Total 0.4 mg/dL (0.2-1.3); Blood Urea Nitrogen 81 mg/dL (9-20); Carbon Dioxide 26 mmol/L (22-30); Chloride 102 mmol/L (98-107); Estimated CRCL calculation 16 ml/min; Estimated Glomerular Filt Rate 18; Glucose 289 mg/dL (65-110); Magnesium 2.2 mg/dL (1.6-2.3); Potassium 3.3 mmol/L (3.4-5.0); Sodium 141 mmol/L (137-145); Total Protein 5.8 g/dL (6.3-8.2)
[2024-09-23 05:40] LABS: Band Neutrophils Percent 0 % (0-6)
[2024-09-23 05:41] LABS: Anisocytosis 1+; Hypochromasia 1+; Ovalocytes 1+; Platelet Clumps Present; Platelet Estimate Increased (Adequate); Schistocytes None Seen
[2024-09-23] MEDS: AMPICILLIN 2 GM/NS 100 ML 2 GM/100 ML BAG IVPB ×3 (06:17→21:25)
[2024-09-23] MEDS: cefTRIAXone 2 GM/NS 100 ML 2 GM/100 ML BAG IVPB ×2 (10:37→21:25)
[2024-09-23] MEDS: DORZOLAMIDE/TIMOLOL OPHTH SOL 10 ML BOTTLE 1 DROP EACH EYE ×2 (10:37→21:26)
--- NOTE | 2024-09-23 10:50 | P.PNNP_ITS ---
Progress Note: A&P Assessment and Plan (1) Acute kidney injury: Code(s): N17.9 - Acute kidney failure, unspecified Status: Acute Assessment and Plan: * slow improvement noted * admission creatinine was close to baseline (2.37mg/dl) * appears to have peaked/plateaued at 3.70mg/dl * suspect multifactorial etiology: * hypotension/shock on admission * sepsis/infection * insensible losses (high fevers on admission) * prerenal factors (poor oral/fluid intake prior to admission) * SARAH-I and chlorthalidone use prior to admission * other (?) * evaluation to date: * CT A/P x 2 without evidence of obstruction * urine electrolytes non-prerenal * urine eosinophils negative * CPK okay * evidence of proteinuria * reasonable urine output noted * follow trend repeat labs and UOP (2) Stage 4 chronic kidney disease: Code(s): N18.4 - Chronic kidney disease, stage 4 (severe) Status: Chronic Assessment and Plan: * baseline creatinine runs ~ 1.9 - 2.3mg/dl since 2021 * however, has fluctuated to extremes with recent admissions/hospitalizations at [facility] in the last couple of months... * outpatient labs since 2024 show creatinine seems to be running closer to 2.2 - 2.7mg/dl * last outpatient creatinine was 2.66mg/dl on 07/18/24 * discharge creatinine from August 2024 hospitalization was 2.99mg/dl * hopefully should improve as other acute medical issues improve/resolve.... * baseline CKD is secondary to HTN, diabetes, vascular disease, and age-related change * follows with [facility] (Dr. Lin Guerrero) (3) Febrile illness: Code(s): R50.9 - Fever, unspecified Status: Acute Assessment and Plan: * as noted on presenation * evaluation to date noted: * UA was not reflective of UTI * CT C/A/P without contrast demonstrating right pleural effusion, slightly dilated esophagus, bilateral renal cyst, bilateral fat containing inguinal hernias and small fat containing umbilical hernia * blood cultures (from 09/09 and 09/12) with no growth to date * viral swan for COVID/RSV/influenza negative * venous duplex negative for DVTs * TTE with no significant findings * last CXR with new opacities of the right lower lung zone which could represent atelectasis or pneumonia * s/p lumbar puncture and CSF showed elevated elevated WBC and protein * elevated CRP and WBC noted * on empiric antibiotic therapy (to cover for pneumoina and meningitis) * continue supportive therapy (4) Slurred speech: Code(s): R47.81 - Slurred speech Status: Acute Assessment and Plan: * apparently noted on 09/14/24 * evaluation noted: * Brain MRI -- small old lacunar infarct at the right subinsular white matter; no acute intracranial process; age-related changes including mild diffuse volume loss and mild scattered nonspecific white matter T2 hyperintensity consistent with chronic small vessel ischemic disease * Echocardiogram (08/30) -- moderate aortic stenosis * Carotid Doppler -- mildly elevated velocity in the right internal carotid artery suggests moderate (50-69%) stenosis, though noted significant plaque clearly evident; antegrade flow in the bilateral vertebral arteries * repeat CT of head (09/19) -- negative * LP studies noted (aee #3) * on antibiotic therapy for possible meningitis * follow mental status and neuro checks (5) Chronic obstructive pulmonary disease: Code(s): J44.9 - Chronic obstructive pulmonary disease, unspecified Status: Acute Assessment and Plan: * continue nebulizer treatments PRN * on home Spiriva * supplemental oxygen as needed * night time BiPAP therapy (6) A-fib: Code(s): I48.91 - Unspecified atrial fibrillation Status: Chronic Assessment and Plan: * known history * rate control strategy * was on carvedilol at home * resume as blood presssure allows * not on anticoagulation at home due to history of bleeding gastric ulcer. (7) Hypertension: Code(s): I10 - Essential (primary) hypertension Status: Chronic Assessment and Plan: * BP initially on hold due given hypotension on presentation * was on coreg, lisinopril and chlorthalidone at home... * resume as clinical course dictated * follow trend of hemodynamics (8) Type 2 diabetes mellitus: Code(s): E11.9 - Type 2 diabetes mellitus without complications Status: Chronic Assessment and Plan: * follow accu-cheks * glycemic control per hospitalist Will continue to follow. L Subjective Date/time seen: 09/23/24 10:50 Interval history: Follow-up for acute kidney injury/acute renal failure on chronic kidney disease. Confusion continues to wax and wane; breathing/respiratory status seems relatively stable; renal function/creatinine appears to be slowly improving with reasonable urine output; remains NPO at the time of my visit. Exam 2 Narrative: General: elderly and somewhat ill-appearing male in NAD Heart: normal S1 and S2; no rub Lungs: coarse breath sounds Abdomen: soft, nontender, nondistended, positive bowel sounds Extremities: no cyanosis or clubbing; no edema Skin: no rash Objective Data Vital Signs Vital Signs: Vital Signs Temp Pulse Resp BP Pulse Ox O2 Del Method O2 Flow Rate 09/23/24 10:40 97.3 F L 85 16 159/92 H 96 09/23/24 08:53 85 20 09/23/24 08:44 122 H 22 H 09/23/24 08:44 99 Nasal Cannula 3 09/23/24 08:00 96 Nasal Cannula 3 09/23/24 08:00 96.6 F L 95 12 170/98 H 99 09/23/24 06:00 81 09/23/24 04:00 97.5 F L 81 20 139/66 99 09/23/24 04:00 76 20 98 Nasal Cannula 5 09/23/24 04:00 76 09/23/24 03:15 85 20 09/23/24 03:03 87 20 09/23/24 01:30 86 09/23/24 01:00 97 09/23/24 00:30 94 09/23/24 00:22 91 09/23/24 00:01 96.0 F L 87 13 146/97 H 98 09/23/24 00:00 99 Nasal Cannula 5 09/23/24 00:00 96 09/22/24 22:00 94 09/22/24 20:30 100 Nasal Cannula 5 09/22/24 20:00 98 09/22/24 20:00 96 F L 117 H 21 H 160/80 H 99 09/22/24 19:33 113 H 99 Nasal Cannula 5 09/22/24 19:20 107 H 20 09/22/24 19:07 116 H 20 09/22/24 18:00 93 09/22/24 16:33 96.2 F L 84 17 97 09/22/24 16:00 98 09/22/24 16:00 96.2 F L 94 20 155/107 H 98 Intake/Output Intake/Output: Intake & Output 09/20/24 09/21/24 09/22/24 09/23/24 23:59 23:59 23:59 23:59 Intake Total 1162 1868 1268 100 Output Total 100 3168 3501 1999 Balance 6766 [phone] Meds/Results Medications: Active Medications Generic Name Dose Route Start Last Admin Trade Name Freq PRN Reason Stop Dose Admin Acetaminophen 650 mg 09/10/24 00:24 09/14/24 05:16 Acetaminophen 325 Mg Tablet PO 650 mg Q4H PRN Administration Mild Pain (1-3) or Fever Albuterol/Ipratropium 3 ml 09/19/24 20:00 09/23/24 13:57 Ipratropium 0.5 Mg/Albuterol Sulfate 2.5 Mg Ampul.Neb 3 Ml INHALATION 3 ml Q6HRT PJ Administration Aspirin 81 mg 09/15/24 09:00 09/23/24 10:37 Aspirin 81 Mg Enteric Tablet PO Not Given QAM PJ Atorvastatin Calcium 40 mg 09/15/24 09:00 09/23/24 10:37 Atorvastatin 40 Mg Tablet PO Not Given DAILY PJ Dextrose 12.5 gm 09/10/24 09:20 Dextrose 50% 25 Gm/50 Ml Syringe IV PUSH PRN PRN Hypoglycemia Protocol Dorzolamide/Timolol 1 drop 09/13/24 09:40 09/23/24 10:37 Dorzolamide/Timolol Ophth Sarah 10 Ml Bottle EACH EYE 1 drop Q12HR PJ Administration Enoxaparin Sodium 30 mg 09/11/24 09:00 09/18/24 09:42 Enoxaparin 30 Mg/0.3 Ml Syringe SUB-Q 30 mg DAILY PJ Administration Glucagon 1 mg 09/10/24 09:20 Glucagon For Inj 1 Mg Vial IM PRN PRN Hypoglycemia Protocol Glucose 15 gm 09/10/24 09:20 Glucose Oral Gel 15 Gm Of Glucse In 37.5 Gm Tube PO PRN PRN Hypoglycemia Protocol Hydralazine HCl 10 mg 09/22/24 11:30 09/22/24 11:40 Hydralazine Hcl 20 Mg/Ml Vial IV PUSH 10 mg Q6HR PRN Administration Blood Pressure - High Dextrose 1,000 mls @ 100 mls/hr 09/10/24 09:20 Dextrose 5% 1,000 Ml IVPB PRN PRN Hypoglycemia Protocol Ceftriaxone Sodium 2 gm in 100 mls @ 200 mls/hr 09/18/24 12:45 09/23/24 10:37 Rocephin 2 Gm/Ns 100 Ml IVPB 200 mls/hr Q12HR PJ Administration Ampicillin Sodium 2 gm in 100 mls @ 200 mls/hr 09/18/24 14:00 09/23/24 13:16 Ampicillin 2 Gm/Ns 100 Ml IVPB 200 mls/hr Q8HR PJ Administration Acyclovir Sodium 900 mg/ 268 mls @ 249.625 mls/hr 09/18/24 18:00 09/22/24 18:38 Dextrose IVPB Infused Q24H PJ Infusion Vancomycin HCl 1,500 mg in 500 mls @ 250 mls/hr 09/22/24 00:00 09/22/24 06:45 Vancomycin 1,500 Mg/Ns 500 Ml IVPB Infused Q48H PJ Infusion Potassium Chloride 100 mls @ 50 mls/hr 09/23/24 15:19 Kcl 20 Meq/Sw 100 Ml IVPB 09/23/24 17:18 ONCE ONE Insulin Aspart 4 - 8 units 09/21/24 00:00 09/23/24 13:15 Insulin Aspart (*Bkc) 100 Units/Ml SUB-Q 6 units Q6HR PJ Administration Protocol Methylprednisolone Sodium Succinate 40 mg 09/19/24 06:05 09/22/24 11:27 Methylprednisolone Sod Succ 40 Mg Vial IV PUSH 40 mg Q6HR PJ Administration Mirtazapine 7.5 mg 09/13/24 09:50 09/14/24 09:00 Mirtazapine 7.5 Mg Tablet PO 7.5 mg DAILY PJ Administration Ondansetron HCl 4 mg 09/10/24 00:24 09/10/24 13:19 Ondansetron Inj 4 Mg/2 Ml Vial IV PUSH 4 mg Q4H PRN Administration Nausea Pantoprazole Sodium 40 mg 09/11/24 09:00 09/23/24 10:37 Pantoprazole 40 Mg Tablet PO Not Given QAM PJ Sodium Chloride 20 ml 09/11/24 08:00 Central Line Flush IV PUSH PRN PRN after blood draws Radiology Results: ITS Impressions Chest/Abdomen/Pelvis CT 09/09/24 21:59 IMPRESSION: CHEST: 1. Right pleural effusion. 2. No other definite acute cardiopulmonary pathology seen. 3. Slightly dilated esophagus which may indicate reflux esophagitis. ABDOMEN/PELVIS: 1. No evidence of appendicitis, diverticulitis or intestinal obstruction. 2. Bilateral renal cysts with small density in the right kidney lower pole. Follow-up advised. 3. Bilateral fat containing inguinal hernias. Small fat-containing umbilical hernia. Venous Doppler Study 09/11/24 10:07 IMPRESSION: 1: No lower extremity deep venous thrombosis. Chest CT 09/15/24 05:40 Impression: [id number] bilateral pleural effusions with probable minimal interstitial edema and minimal bibasilar atelectatic change. Carotid Doppler Study 09/15/24 05:43 Impression: Mildly elevated velocity in the right internal carotid artery suggests moderate (50-69%) stenosis, though noted significant plaque clearly evident. Antegrade flow in the bilateral vertebral arteries. Note: The methodology used is an indirect measurement validated against a direct method (such as the NASCET criteria) that compares diameters at the stenosis to the distal ICA. Brain MRI 09/15/24 15:43 IMPRESSION: 1. 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 No acute intracranial process. 2. Age-related changes including mild diffuse volume loss and mild scattered nonspecific white matter T2 hyperintensity consistent with chronic small vessel ischemic disease. Modified Barium Swallow 09/16/24 13:13 IMPRESSION: Patient tolerated regular consistency oral feedings in the upright position. Please correlate with speech pathologist findings and specific feeding recommendations. Chest/Abdomen CT 09/16/24 13:52 IMPRESSION: 1. Unchanged small bilateral posterior layering pleural effusions with dependent atelectasis in both lungs. No pulmonary edema or pneumonia in the aerated portions of the lungs. Head CT 09/19/24 16:37 IMPRESSION: No acute intracranial findings. Lumbar Puncture Fluoroscopy 09/19/24 17:48 IMPRESSION: 1. Successful fluoro-guided lumbar puncture with normal opening pressure of 18 cm water which yielded only 2.5 mm of clear CSF. Chest X-Ray 09/22/24 05:33 Impression: Minimal pleural effusions with questionable minimal bibasilar pulmonary edema. Labs Labs: Laboratory Tests 09/23/24 04:39 09/23/24 04:39 Calcium 8.0 L Phosphorus 5.0 H Magnesium 2.2 Total Bilirubin 0.4 AST 30 ALT 14 Alkaline Phosphatase 106 Total Protein 5.8 L Albumin 3.4 L Microbiology 09/19/24 17:15 Cerebral Spinal Fluid Gram Stain - Final 09/19/24 17:15 Cerebral Spinal Fluid CSF Culture - Preliminary 09/19/24 17:15 Cerebral Spinal Fluid Acid Fast Bacilli Culture - Preliminary
[2024-09-23 11:13] LABS: Albumin 3.2 g/dL (3.8-4.8); Alpha 1 Globulin 0.4 g/dL (0.2-0.3); Alpha 2 Globulin 0.7 g/dL (0.5-0.9); Beta 1 Globulin 0.2 g/dL (0.4-0.6); Gamma Globulin 0.4 g/dL (0.8-1.7)
[2024-09-23 12:20] LABS: Glucose Point of Care 317 mg/dl (65-105)
--- NOTE | 2024-09-23 15:13 | P.PNIM_ITS ---
Progress Note: A&P Assessment and Plan (1) Febrile illness: Code(s): R50.9 - Fever, unspecified Status: Acute Assessment and Plan: 09/09: Patient presented with fevers, weakness, hypotension -UA was not reflective of UTI -CT Ch/A/P without contrast demonstrating right pleural effusion, slightly dilated esophagus, bilateral renal cyst,. Bilateral fat containing inguinal hernias and small fat containing umbilical hernia. -09/09: BCx NGTD MRSA nasal swab negative. COVID, influenza and RSV PCR negative. Started on cefepime and vancomycin (09/09) but vanco stopped on 09/11. Venous duplex negative for DVT. CXR with new opacities of the right lower lung zone which could represent atelectasis or pneumonia with small right pleural effusion. Repeat BCx 09/12 NGTD CRP 8 -> 27. WBC higher at 12K. But fever curve better. Patient feels better. Continue Cefepime for now. add flagyl for anaerobic coverage 09/14/24. recheck mrsa positive. will add linezolid TTE with no signifciant findings. Hx of aspiration PNA so will have speech therapy evaluate. Consider BERNA to exclude endocarditis but felt unlikely with negative BCx. does not meet's Carnes's criteria. on ceftriaxone,ampicillin ,vancomycin and acyclovir due to possible meningitis Lactic acid is normal CRP and ESR is elevated. Possible source of infection UTI s/p Lumbar puncture and CSF showed elevated elevated WBC and protein continue above Anti-infectives monitor (2) Sepsis: Code(s): A41.9 - Sepsis, unspecified organism Status: Acute Assessment and Plan: Patient was hypotensive in the ER, received 30 cc/kg IV fluids and central line was inserted Levophed started but able to be weaned off Blood pressures stable Continue antibiotics as above (3) Chronic kidney disease, stage 3: Code(s): N18.30 - Chronic kidney disease, stage 3 unspecified Status: Acute Assessment and Plan: Patient with history of CKD (baseline 2.50-3.26) On admission creatinine was 2.37. -patient did diurese well as he was volume overloaded and congested -received albumin -urine output has been adequate Cr worsened during the hospital stay suggesting GABRIELA. Peaked to 3.6 now stable -continue to monitor renal function, electrolytes and urine output Nephrology consulted and board (4) Chronic obstructive pulmonary disease: Code(s): J44.9 - Chronic obstructive pulmonary disease, unspecified Status: Acute Assessment and Plan: No wheezing appreciated. Continue neb treatments. Continue home Spiriva now on 3 liters oxygen conitnue nighttime BiPAP BiPAP has been tapered off. Did have metabolic acidosis with uncompensated respiratory acidosis (5) A-fib: Code(s): I48.91 - Unspecified atrial fibrillation Status: Acute Assessment and Plan: History of AFib -on carvedilol at home -will hold for now as patient's BP still soft -heart rate is controlled for now Not on anticoagulation at home due to history of bleeding gastric ulcer. His last EGD 3-4 years ago (6) Hypertension: Code(s): I10 - Essential (primary) hypertension Status: Chronic Assessment and Plan: Patient on Coreg, lisinopril and chlorthalidone at home. titrate home meds with clinical course (7) Type 2 diabetes mellitus: Code(s): E11.9 - Type 2 diabetes mellitus without complications Status: Chronic Assessment and Plan: Glucose remains well controlled. Continue AccuCheks covering with sliding scale. Hypoglycemia protocol available as needed. Resume home lantus and aspart when able (8) Renal mass: Code(s): N28.89 - Other specified disorders of kidney and ureter Status: Acute Assessment and Plan: Incidental finding by CT showing a left upper pole cyst measuring 2.9 cm. Exophytic cyst is seen in the right kidney midpole measuring 3 cm. Tiny hypodense lesion seen in the right kidney lower pole most likely hemorrhagic cyst. Tiny mass cannot be excluded. Follow-up advised. awaiting transfer to [facility] for oncology eval and treat (9) Slurred speech: Code(s): R47.81 - Slurred speech Status: Acute Assessment and Plan: Noticed some slurred speech 09/14/24 Brain MRI:1. 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 No acute intracranial process. 2. Age-related changes including mild diffuse volume loss and mild scattered nonspecific white matter T2 hyperintensity consistent with chronic small vessel ischemic disease. Echocardiogram was performed on 08/30/2024 which shows moderate aortic stenosis Carotid Doppler:Mildly elevated velocity in the right internal carotid artery suggests moderate (50-69%) stenosis, though noted significant plaque clearly evident. Antegrade flow in the bilateral vertebral arteries. Following Neurology recommendation Status post lumbar puncture Started on ceftriaxone, ampicillin, Acyclovir and vancomycin Neuro check q.[address] head today 09/19 negative Will hold methylprednisolone dysphagia: failed swallow. will do feeding tube and start tube feeds. anticipate MBS on wednesday Plan At the request of , she wanted to transfer the [place] for continuity of care. Awaiting transfer to [facility] Subjective Date/time seen: 09/23/24 15:13 Interval history: No overnight events. Confusion persist. Discussed with at bedside. Discussed the speech therapist. Review of Systems Review of Systems: All systems reviewed & are unremarkable except as noted in HPI and below Exam Narrative: Patient is comfortable, slurred speech mild confusion patient repeats often HEENT: eyes are clear and none icteric LUNGS:CTA HEART: RR S1S2 ABD: BS+, Soft and nontender Lower extremities: no edema SKIN: nonjaundiced Neuro: grossly intact. Generalized weakness but moves all extremities follow some commands Objective Data Vital Signs Vital Signs: Vital Signs - 24 hr 09/22/24 15:27 09/22/24 16:00 09/22/24 16:00 Temperature 96.2 F L Pulse Rate 105 H 94 98 Respiratory Rate 22 H 20 Blood Pressure 155/107 H Pulse Oximetry 100 98 Oxygen Delivery Nasal Cannula Oxygen Flow Rate 5 09/22/24 16:33 09/22/24 18:00 09/22/24 19:07 Temperature 96.2 F L Pulse Rate 84 93 116 H Respiratory Rate 17 20 Blood Pressure Pulse Oximetry 97 Oxygen Delivery Oxygen Flow Rate 09/22/24 19:20 09/22/24 19:33 09/22/24 20:00 Temperature 96 F L Pulse Rate 107 H 113 H 117 H Respiratory Rate 20 21 H Blood Pressure 160/80 H Pulse Oximetry 99 99 Oxygen Delivery Nasal Cannula Oxygen Flow Rate 5 09/22/24 20:00 09/22/24 20:30 09/22/24 22:00 Temperature Pulse Rate 98 94 Respiratory Rate Blood Pressure Pulse Oximetry 100 Oxygen Delivery Nasal Cannula Oxygen Flow Rate 09/23/24 00:00 09/23/24 00:00 09/23/24 00:01 Temperature 96.0 F L Pulse Rate 96 87 Respiratory Rate 13 Blood Pressure 146/97 H Pulse Oximetry 99 98 Oxygen Delivery Nasal Cannula Oxygen Flow Rate 5 09/23/24 00:22 09/23/24 00:30 09/23/24 01:00 Temperature Pulse Rate 91 94 97 Respiratory Rate Blood Pressure Pulse Oximetry Oxygen Delivery Oxygen Flow Rate 09/23/24 01:30 09/23/24 03:03 09/23/24 03:15 Temperature Pulse Rate 86 87 85 Respiratory Rate 20 20 Blood Pressure Pulse Oximetry Oxygen Delivery Oxygen Flow Rate 09/23/24 04:00 09/23/24 04:00 09/23/24 04:00 Temperature 97.5 F L Pulse Rate 76 76 81 Respiratory Rate 20 20 Blood Pressure 139/66 Pulse Oximetry 98 99 Oxygen Delivery Nasal Cannula Oxygen Flow Rate 5 09/23/24 06:00 09/23/24 08:00 09/23/24 08:00 Temperature 96.6 F L Pulse Rate 81 95 Respiratory Rate 12 Blood Pressure 170/98 H Pulse Oximetry 99 96 Oxygen Delivery Nasal Cannula Oxygen Flow Rate 3 09/23/24 08:44 09/23/24 08:44 09/23/24 08:53 Temperature Pulse Rate 122 H 85 Respiratory Rate 22 H 20 Blood Pressure Pulse Oximetry 99 Oxygen Delivery Nasal Cannula Oxygen Flow Rate 3 09/23/24 12:00 09/23/24 12:00 09/23/24 13:57 Temperature 97.3 F L Pulse Rate 85 92 Respiratory Rate 16 20 Blood Pressure 159/92 H Pulse Oximetry 96 96 Oxygen Delivery Nasal Cannula Oxygen Flow Rate 3 09/23/24 14:08 Temperature Pulse Rate 91 Respiratory Rate 20 Blood Pressure Pulse Oximetry Oxygen Delivery Oxygen Flow Rate Intake/Output Intake/Output: Intake & Output 09/20/24 09/21/24 09/22/24 09/23/24 23:59 23:59 23:59 23:59 Intake Total 1162 1868 1268 100 Output Total 100 1025 3325 1999 Balance 1062 371 -[phone] -3401 Meds/Results Medications: Active Medications Generic Name Dose Route Start Last Admin Trade Name Freq PRN Reason Stop Dose Admin Acetaminophen 650 mg 09/10/24 00:24 09/14/24 05:16 Acetaminophen 325 Mg Tablet PO 650 mg Q4H PRN Administration Mild Pain (1-3) or Fever Albuterol/Ipratropium 3 ml 09/19/24 20:00 09/23/24 13:57 Ipratropium 0.5 Mg/Albuterol Sulfate 2.5 Mg Ampul.Neb 3 Ml INHALATION 3 ml Q6HRT PJ Administration Aspirin 81 mg 09/15/24 09:00 09/23/24 10:37 Aspirin 81 Mg Enteric Tablet PO Not Given QAM PJ Atorvastatin Calcium 40 mg 09/15/24 09:00 09/23/24 10:37 Atorvastatin 40 Mg Tablet PO Not Given DAILY PJ Dextrose 12.5 gm 09/10/24 09:20 Dextrose 50% 25 Gm/50 Ml Syringe IV PUSH PRN PRN Hypoglycemia Protocol Dorzolamide/Timolol 1 drop 09/13/24 09:40 09/23/24 10:37 Dorzolamide/Timolol Ophth Sarah 10 Ml Bottle EACH EYE 1 drop Q12HR PJ Administration Enoxaparin Sodium 30 mg 09/11/24 09:00 09/18/24 09:42 Enoxaparin 30 Mg/0.3 Ml Syringe SUB-Q 30 mg DAILY PJ Administration Glucagon 1 mg 09/10/24 09:20 Glucagon For Inj 1 Mg Vial IM PRN PRN Hypoglycemia Protocol Glucose 15 gm 09/10/24 09:20 Glucose Oral Gel 15 Gm Of Glucse In 37.5 Gm Tube PO PRN PRN Hypoglycemia Protocol Hydralazine HCl 10 mg 09/22/24 11:30 09/22/24 11:40 Hydralazine Hcl 20 Mg/Ml Vial IV PUSH 10 mg Q6HR PRN Administration Blood Pressure - High Dextrose 1,000 mls @ 100 mls/hr 09/10/24 09:20 Dextrose 5% 1,000 Ml IVPB PRN PRN Hypoglycemia Protocol Ceftriaxone Sodium 2 gm in 100 mls @ 200 mls/hr 09/18/24 12:45 09/23/24 10:37 Rocephin 2 Gm/Ns 100 Ml IVPB 200 mls/hr Q12HR PJ Administration Ampicillin Sodium 2 gm in 100 mls @ 200 mls/hr 09/18/24 14:00 09/23/24 13:16 Ampicillin 2 Gm/Ns 100 Ml IVPB 200 mls/hr Q8HR PJ Administration Acyclovir Sodium 900 mg/ 268 mls @ 249.625 mls/hr 09/18/24 18:00 09/22/24 18:38 Dextrose IVPB Infused Q24H PJ Infusion Vancomycin HCl 1,500 mg in 500 mls @ 250 mls/hr 09/22/24 00:00 09/22/24 06:45 Vancomycin 1,500 Mg/Ns 500 Ml IVPB Infused Q48H PJ Infusion Insulin Aspart 4 - 8 units 09/21/24 00:00 09/23/24 13:15 Insulin Aspart (*Bkc) 100 Units/Ml SUB-Q 6 units Q6HR PJ Administration Protocol Methylprednisolone Sodium Succinate 40 mg 09/19/24 06:05 09/22/24 11:27 Methylprednisolone Sod Succ 40 Mg Vial IV PUSH 40 mg Q6HR JP Administration Mirtazapine 7.5 mg 09/13/24 09:50 09/14/24 09:00 Mirtazapine 7.5 Mg Tablet PO 7.5 mg DAILY PJ Administration Ondansetron HCl 4 mg 09/10/24 00:24 09/10/24 13:19 Ondansetron Inj 4 Mg/2 Ml Vial IV PUSH 4 mg Q4H PRN Administration Nausea Pantoprazole Sodium 40 mg 09/11/24 09:00 09/23/24 10:37 Pantoprazole 40 Mg Tablet PO Not Given QAM PJ Sodium Chloride 20 ml 09/11/24 08:00 Central Line Flush IV PUSH PRN PRN after blood draws Radiology Results: ITS Impressions Chest/Abdomen/Pelvis CT 09/09/24 21:59 IMPRESSION: CHEST: 1. Right pleural effusion. 2. No other definite acute cardiopulmonary pathology seen. 3. Slightly dilated esophagus which may indicate reflux esophagitis. ABDOMEN/PELVIS: 1. No evidence of appendicitis, diverticulitis or intestinal obstruction. 2. Bilateral renal cysts with small density in the right kidney lower pole. Follow-up advised. 3. Bilateral fat containing inguinal hernias. Small fat-containing umbilical hernia. Venous Doppler Study 09/11/24 10:07 IMPRESSION: 1: No lower extremity deep venous thrombosis. Chest CT 09/15/24 05:40 Impression: Cmxqm-ka-fpsaukhz bilateral pleural effusions with probable minimal interstitial edema and minimal bibasilar atelectatic change. Carotid Doppler Study 09/15/24 05:43 Impression: Mildly elevated velocity in the right internal carotid artery suggests moderate (50-69%) stenosis, though noted significant plaque clearly evident. Antegrade flow in the bilateral vertebral arteries. Note: The methodology used is an indirect measurement validated against a direct method (such as the NASCET criteria) that compares diameters at the stenosis to the distal ICA. Brain MRI 09/15/24 15:43 IMPRESSION: 1. 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 No acute intracranial process. 2. Age-related changes including mild diffuse volume loss and mild scattered nonspecific white matter T2 hyperintensity consistent with chronic small vessel ischemic disease. Modified Barium Swallow 09/16/24 13:13 IMPRESSION: Patient tolerated regular consistency oral feedings in the upright position. Please correlate with speech pathologist findings and specific feeding recommendations. Chest/Abdomen CT 09/16/24 13:52 IMPRESSION: 1. Unchanged small bilateral posterior layering pleural effusions with dependent atelectasis in both lungs. No pulmonary edema or pneumonia in the aerated portions of the lungs. Head CT 09/19/24 16:37 IMPRESSION: No acute intracranial findings. Lumbar Puncture Fluoroscopy 09/19/24 17:48 IMPRESSION: 1. Successful fluoro-guided lumbar puncture with normal opening pressure of 18 cm water which yielded only 2.5 mm of clear CSF. Chest X-Ray 09/22/24 05:33 Impression: Minimal pleural effusions with questionable minimal bibasilar pulmonary edema. Labs Labs: Laboratory Results - last 24 hr 09/20/24 09/22/24 09/22/24 19:41 17:57 23:57 WBC RBC Hgb Hct MCV MCH MCHC RDW Plt Count MPV Immature Gran % (Auto) Neut % (Auto) Lymph % (Auto) [place] % (Auto) Eos % (Auto) Baso % (Auto) Lymph # (Auto) [place] # (Auto) Eos # (Auto) Baso # (Auto) Abs Immat Gran (auto) Absolute Neuts (auto) Absolute Nucleated RBC Band Neutrophils % Nucleated RBC % Platelet Estimate Clumped Platelets Hypochromasia Anisocytosis Ovalocytes Schistocytes Sodium Potassium Chloride Carbon Dioxide Anion Gap BUN Creatinine Estim Creat Clear Calc Estimated GFR Glucose POC Capillary Glucose 332 H 326 H Calcium Phosphorus Magnesium Total Bilirubin AST ALT Alkaline Phosphatase Total Protein Albumin 3.2 L Wstdz-0-Ffnfqvvky 0.4 H Hsvmq-3-Olhhktxfl 0.7 Qgjw-2-Cvnfgfdr 0.2 L Ptja-1-Avxukbrm 0.2 Gamma Globulins 0.4 L PEP Interpretation See note 09/23/24 09/23/24 04:39 11:59 WBC 14.8 H RBC 3.63 L Hgb 9.0 L Hct 30.3 L MCV 83.5 MCH 24.8 L MCHC 29.7 L RDW 17.5 H Plt Count 651 H MPV 9.9 Immature Gran % (Auto) 1.1 H Neut % (Auto) 87.7 H Lymph % (Auto) 3.1 L [place] % (Auto) 8.0 Eos % (Auto) 0.0 Baso % (Auto) 0.1 L Lymph # (Auto) 0.46 L [place] # (Auto) 1.2 H Eos # (Auto) 0.0 Baso # (Auto) 0.0 Abs Immat Gran (auto) 0.16 H Absolute Neuts (auto) 13.0 H Absolute Nucleated RBC 0.070 H Band Neutrophils % 0 Nucleated RBC % 0.5 H Platelet Estimate Increased Clumped Platelets Present Hypochromasia 1+ Anisocytosis 1+ Ovalocytes 1+ Schistocytes None seen Sodium 141 Potassium 3.3 L Chloride 102 Carbon Dioxide 26 Anion Gap 13 H BUN 81 H D Creatinine 3.32 H Estim Creat Clear Calc 16 Estimated GFR 18 L Glucose 289 H POC Capillary Glucose 317 H Calcium 8.0 L Phosphorus 5.0 H Magnesium 2.2 Total Bilirubin 0.4 AST 30 ALT 14 Alkaline Phosphatase 106 Total Protein 5.8 L Albumin 3.4 L Sfari-1-Wrnnlabds Pkghn-7-Kweaycsjl Kwqn-8-Jpvfojwr Wslh-8-Pkqytjfj Gamma Globulins PEP Interpretation
[2024-09-23] MEDS: KCL 20 MEQ/SW 100 ML 100 ML 50 MEQ IVPB (15:48)
[2024-09-23 17:06] LABS: Alveolar/Arterial O2 Gradient 66.1 mmHg; Fractional Inspired Oxygen 32 %; HCO3 ABG 28.9 mEq/l (22.0-26.0); Oxygen Content ABG 13.8 %vol (16.0-22.0); Oxygen Saturation ABG 97.5 % (95.0-100.0); Oxyhemoglobin 97.3 % THb (90.0-100.0); PCO2 ABG 50.7 mmHg (35.0-45.0); PO2 ABG 102.7 mmHg (80.0-100.0); PO2 FiO2 Ratio Arterial Blood 3.21 %; pH ABG 7.373 (7.350-7.450)
[2024-09-23 17:08] LABS: Device NASAL CANNULA; Modified Allen's Test Pass; Site Drawn LEFT RADIAL
[2024-09-23] MEDS: ACYCLOVIR SODIUM IVPB 900 MG in DEXTROSE 5% IN WATER 250 ML 250 MG IVPB (17:56)
[2024-09-23 18:19] LABS: Glucose Point of Care 275 mg/dl (65-105)
--- NOTE | 2024-09-23 22:50 | ECG_ITS ---
Test Date: 2024-09-23 22:55:44 Measurements Intervals [place] Rate: 91 P: 0 IA: 0 QRS: -4 QRSD: 103 T: 15 QT: 401 QTc: 496 Interpretive Statements ATRIAL FIBRILLATION WITH ABERRANT CONDUCTION OR VENTRICULAR PREMATURE COMPLEXES INTERMITTENT RBBB LOW QRS VOLTAGE IN LIMB LEADS BORDERLINE ST-T WAVE ABNORMALITY- INF/LAT LEADS ABNORMAL ECG Compared to ECG 09/20/2024 03:40:37 INTERMITTENT RIGHT BUNDLE BRANCH BLOCK NOW PRESENT Electronically Signed On 09-24-2024 07:05:22 CDT by Usman Cochran D.O.
[2024-09-23 23:37] LABS: Vancomycin Trough 25.9 ug/mL (10.0-20.0)
[2024-09-24] VITALS (21 sets, daily range): BP systolic 150–177; BP diastolic 88–100; PULSE 86–117; RESP 16–20; TEMP 36.4–36.6; O2SAT 97–100
[2024-09-24] MEDS: INSULIN ASPART (*BKC) 100 UNITS/ML SUB-Q ×4 (00:52→18:31)
[2024-09-24 01:08] LABS: Glucose Point of Care 239 mg/dl (65-105)
[2024-09-24 01:38] LABS: Immunofixation, Serum Normal pattern.
[2024-09-24] MEDS: IPRATROPIUM 0.5 MG/ALBUTEROL SULFATE 2.5 MG AMPUL.NEB 3 ML INHALATION ×3 (01:57→14:02)
[2024-09-24 04:37] LABS: Basophils Percent Auto 0.1 % (0.2-1.2); Hematocrit 32.8 % (42.0-52.0); Hemoglobin 9.6 g/dL (14.0-18.0); Immature Granulocyte Absolute 0.19 K/mm3 (0.00-0.031); Immature Granulocyte Percent A 1.2 % (0-0.5); Lymphocytes Absolute Auto 1.07 K/mm3 (0.9-3.2); Lymphocytes Percent Auto 6.9 % (18.3-44.2); Mean Corpuscular HGB Conc 29.3 g/dl (32-36); Mean Corpuscular Hemoglobin 24.7 pg (26-34); Mean Corpuscular Volume 84.3 fl (80-100); Mean Platelet Volume 9.5 fl (7.4-10.4); Monocytes Absolute Auto 1.8 K/mm3 (0.1-0.6); Monocytes Percent Auto 11.5 % (2.6-8.5); Neutrophils Absolute Auto 12.4 K/mm3 (1.3-6.7); Neutrophils Percent Auto 80.3 % (45.5-73.1); Nucleated Red Blood Cells Perc 0.9 % (0.0-0.2); Platelet Count Result 663 k/mm3 (150-375); Red Blood Count 3.89 M/mm3 (4.6-6.20); Red Cell Distribution Width 17.3 % (11.5-14.5); White Blood Count 15.4 K/mm3 (4.5-10.0)
[2024-09-24 04:56] LABS: Alanine Aminotransferase 17 U/L (6-50); Albumin Level 3.4 g/dL (3.5-5.1); Alkaline Phosphatase 121 U/L (38-126); Anion Gap 12 mmol/L (4-12); Aspartate Amino Transferase 39 U/L (17-59); Bilirubin,Total 0.3 mg/dL (0.2-1.3); Blood Urea Nitrogen 78 mg/dL (9-20); Calcium 8.2 mg/dL (8.4-10.2); Carbon Dioxide 32 mmol/L (22-30); Chloride 103 mmol/L (98-107); Estimated CRCL calculation 18 ml/min; Estimated Glomerular Filt Rate 20; Glucose 224 mg/dL (65-110); Phosphorus 3.7 mg/dL (2.5-4.5); Potassium 3.2 mmol/L (3.4-5.0); Sodium 147 mmol/L (137-145); Total Protein 5.9 g/dL (6.3-8.2)
[2024-09-24 05:10] LABS: Platelet Estimate Increased (Adequate)
[2024-09-24 05:11] LABS: Schistocytes None Seen
[2024-09-24 05:14] LABS: Hypochromasia 2+
[2024-09-24 05:15] LABS: Anisocytosis 1+
[2024-09-24 05:45] LABS: Glucose Point of Care 219 mg/dl (65-105)
[2024-09-24] MEDS: AMPICILLIN 2 GM/NS 100 ML 2 GM/100 ML BAG IVPB ×3 (05:47→21:06)
--- NOTE | 2024-09-24 06:01 | PCRCNOTE ---
Patient has been pulling at nebulizer mask each time a breathing treatment was given. Patient will not stay compliant with his treatments. Patient was in no respiratory distress overnight and would not allow bipap mask to go on, therefore it is standby. [facility]
[2024-09-24] MEDS: cefTRIAXone 2 GM/NS 100 ML 2 GM/100 ML BAG IVPB ×2 (09:26→21:06)
[2024-09-24] MEDS: ASPIRIN 81 MG ENTERIC TABLET PO (09:26)
[2024-09-24] MEDS: PANTOPRAZOLE 40 MG TABLET PO (09:26)
[2024-09-24] MEDS: ATORVASTATIN 40 MG TABLET PO (09:26)
[2024-09-24] MEDS: DORZOLAMIDE/TIMOLOL OPHTH SOL 10 ML BOTTLE 1 DROP EACH EYE ×2 (09:27→21:06)
--- NOTE | 2024-09-24 10:47 | P.PNNP_ITS ---
Progress Note: A&P Assessment and Plan (1) Acute kidney injury: Code(s): N17.9 - Acute kidney failure, unspecified Status: Acute Assessment and Plan: * slow improvement noted * admission creatinine was close to baseline (2.37mg/dl) * appears to have peaked/plateaued at 3.70mg/dl * suspect multifactorial etiology: * hypotension/shock on admission * sepsis/infection * insensible losses (high fevers on admission) * prerenal factors (poor oral/fluid intake prior to admission) * SARAH-I and chlorthalidone use prior to admission * other (?) * evaluation to date: * CT A/P x 2 without evidence of obstruction * urine electrolytes non-prerenal * urine eosinophils negative * CPK okay * evidence of proteinuria * reasonable urine output noted * follow trend repeat labs and UOP (2) Stage 4 chronic kidney disease: Code(s): N18.4 - Chronic kidney disease, stage 4 (severe) Status: Chronic Assessment and Plan: * baseline creatinine runs ~ 1.9 - 2.3mg/dl since 2021 * however, has fluctuated to extremes with recent admissions/hospitalizations at [facility] in the last couple of months... * outpatient labs since 2024 show creatinine seems to be running closer to 2.2 - 2.7mg/dl * last outpatient creatinine was 2.66mg/dl on 07/18/24 * discharge creatinine from August 2024 hospitalization was 2.99mg/dl * hopefully should improve as other acute medical issues improve/resolve.... * baseline CKD is secondary to HTN, diabetes, vascular disease, and age-related change * follows with [facility] (Dr. Lin Guerrero) (3) Febrile illness: Code(s): R50.9 - Fever, unspecified Status: Acute Assessment and Plan: * as noted on presenation * evaluation to date noted: * UA was not reflective of UTI * CT C/A/P without contrast demonstrating right pleural effusion, slightly dilated esophagus, bilateral renal cyst, bilateral fat containing inguinal hernias and small fat containing umbilical hernia * blood cultures (from 09/09 and 09/12) with no growth to date * viral swan for COVID/RSV/influenza negative * venous duplex negative for DVTs * TTE with no significant findings * last CXR with new opacities of the right lower lung zone which could represent atelectasis or pneumonia * s/p lumbar puncture and CSF showed elevated elevated WBC and protein * elevated CRP and WBC noted * on empiric antibiotic therapy (to cover for pneumoina and meningitis) * continue supportive therapy (4) Slurred speech: Code(s): R47.81 - Slurred speech Status: Acute Assessment and Plan: * apparently noted on 09/14/24 * evaluation noted: * Brain MRI -- small old lacunar infarct at the right subinsular white matter; no acute intracranial process; age-related changes including mild diffuse volume loss and mild scattered nonspecific white matter T2 hyperintensity consistent with chronic small vessel ischemic disease * Echocardiogram (08/30) -- moderate aortic stenosis * Carotid Doppler -- mildly elevated velocity in the right internal carotid artery suggests moderate (50-69%) stenosis, though noted significant plaque clearly evident; antegrade flow in the bilateral vertebral arteries * repeat CT of head (09/19) -- negative * LP studies noted (aee #3) * on antibiotic therapy for possible meningitis * follow mental status and neuro checks (5) Chronic obstructive pulmonary disease: Code(s): J44.9 - Chronic obstructive pulmonary disease, unspecified Status: Acute Assessment and Plan: * continue nebulizer treatments PRN * on home Spiriva * supplemental oxygen as needed * night time BiPAP therapy (6) A-fib: Code(s): I48.91 - Unspecified atrial fibrillation Status: Chronic Assessment and Plan: * known history * rate control strategy * was on carvedilol at home * resume as blood presssure allows * not on anticoagulation at home due to history of bleeding gastric ulcer. (7) Hypertension: Code(s): I10 - Essential (primary) hypertension Status: Chronic Assessment and Plan: * BP initially on hold due given hypotension on presentation * was on coreg, lisinopril and chlorthalidone at home... * resume as clinical course dictated * follow trend of hemodynamics (8) Type 2 diabetes mellitus: Code(s): E11.9 - Type 2 diabetes mellitus without complications Status: Chronic Assessment and Plan: * follow accu-cheks * glycemic control per hospitalist Will continue to follow. L Subjective Date/time seen: 09/24/24 10:47 Interval history: Follow-up for acute kidney injury on chronic kidney disease. Agitation overnight with pulling at lines/tubes so placed in mittens/soft wrist restraints although mentation seems a bit better at the time of my visit; failed swallow evaluation so NG tube placed for enteral feeding; renal function/creatinine continue to slowly improve with good urine output; elevated sodium level noted (likely due to previous NPO status); no apparent distress noted. Exam 2 Narrative: General: elderly and somewhat ill-appearing male in NAD Heart: normal S1 and S2; no rub Lungs: coarse breath sounds Abdomen: soft, nontender, nondistended, positive bowel sounds Extremities: no cyanosis or clubbing; no edema Skin: no nodules Objective Data Vital Signs Vital Signs: Vital Signs Temp Pulse Resp BP Pulse Ox O2 Del Method O2 Flow Rate 09/24/24 08:28 93 20 09/24/24 08:19 108 H 20 09/24/24 08:19 97 Nasal Cannula 3 09/24/24 08:00 97.8 F 86 20 177/97 H 100 09/24/24 06:00 101 H 09/24/24 04:00 98 Nasal Cannula 3 09/24/24 04:00 96 09/24/24 04:00 98 F 106 H 18 158/90 H 98 09/24/24 02:04 95 20 09/24/24 02:00 87 09/24/24 01:58 94 20 09/24/24 00:00 98 Nasal Cannula 3 09/24/24 00:00 99 09/23/24 23:50 97.8 F 98 20 138/88 98 09/23/24 22:00 105 H 09/23/24 20:58 103 H 20 09/23/24 20:53 100 20 09/23/24 20:00 98 Nasal Cannula 3 09/23/24 20:00 86 09/23/24 20:00 97.6 F 95 18 148/96 H 98 09/23/24 18:00 90 09/23/24 16:00 94 09/23/24 16:00 100 Nasal Cannula 3 09/23/24 16:00 97.6 F 97 16 153/97 H 100 09/23/24 14:08 91 20 09/23/24 14:00 94 09/23/24 13:57 92 20 09/23/24 12:00 86 09/23/24 12:00 96 Nasal Cannula 3 09/23/24 12:00 97.3 F L 85 16 159/92 H 96 Intake/Output Intake/Output: Intake & Output 09/21/24 09/22/24 09/23/24 09/24/24 23:59 23:59 23:59 23:59 Intake Total 1868 1268 768 100 Output Total 1025 3328 1999 1200 Balance 843 -2057 -1232 -1100 Meds/Results Medications: Active Medications Generic Name Dose Route Start Last Admin Trade Name Freq PRN Reason Stop Dose Admin Acetaminophen 650 mg 09/10/24 00:24 09/14/24 05:16 Acetaminophen 325 Mg Tablet PO 650 mg Q4H PRN Administration Mild Pain (1-3) or Fever Albuterol/Ipratropium 3 ml 09/19/24 20:00 09/24/24 08:19 Ipratropium 0.5 Mg/Albuterol Sulfate 2.5 Mg Ampul.Neb 3 Ml INHALATION 3 ml Q6HRT PJ Administration Aspirin 81 mg 09/15/24 09:00 09/24/24 09:26 Aspirin 81 Mg Enteric Tablet PO 81 mg QAM PJ Administration Atorvastatin Calcium 40 mg 09/15/24 09:00 09/24/24 09:26 Atorvastatin 40 Mg Tablet PO 40 mg DAILY PJ Administration Dextrose 12.5 gm 09/10/24 09:20 Dextrose 50% 25 Gm/50 Ml Syringe IV PUSH PRN PRN Hypoglycemia Protocol Dorzolamide/Timolol 1 drop 09/13/24 09:40 09/24/24 09:27 Dorzolamide/Timolol Ophth Sarah 10 Ml Bottle EACH EYE 1 drop Q12HR PJ Administration Enoxaparin Sodium 30 mg 09/11/24 09:00 09/18/24 09:42 Enoxaparin 30 Mg/0.3 Ml Syringe SUB-Q 30 mg DAILY PJ Administration Glucagon 1 mg 09/10/24 09:20 Glucagon For Inj 1 Mg Vial IM PRN PRN Hypoglycemia Protocol Glucose 15 gm 09/10/24 09:20 Glucose Oral Gel 15 Gm Of Glucse In 37.5 Gm Tube PO PRN PRN Hypoglycemia Protocol Hydralazine HCl 10 mg 09/22/24 11:30 09/22/24 11:40 Hydralazine Hcl 20 Mg/Ml Vial IV PUSH 10 mg Q6HR PRN Administration Blood Pressure - High Dextrose 1,000 mls @ 100 mls/hr 09/10/24 09:20 Dextrose 5% 1,000 Ml IVPB PRN PRN Hypoglycemia Protocol Ceftriaxone Sodium 2 gm in 100 mls @ 200 mls/hr 09/18/24 12:45 09/24/24 09:26 Rocephin 2 Gm/Ns 100 Ml IVPB 200 mls/hr Q12HR PJ Administration Ampicillin Sodium 2 gm in 100 mls @ 200 mls/hr 09/18/24 14:00 09/24/24 06:17 Ampicillin 2 Gm/Ns 100 Ml IVPB Infused Q8HR PJ Infusion Acyclovir Sodium 900 mg/ 268 mls @ 249.625 mls/hr 09/18/24 18:00 09/23/24 19:01 Dextrose IVPB Infused Q24H PJ Infusion Insulin Aspart 4 - 8 units 09/21/24 00:00 09/24/24 05:48 Insulin Aspart (*Bkc) 100 Units/Ml SUB-Q 4 units Q6HR PJ Administration Protocol Methylprednisolone Sodium Succinate 40 mg 09/19/24 06:05 09/22/24 11:27 Methylprednisolone Sod Succ 40 Mg Vial IV PUSH 40 mg Q6HR PJ Administration Mirtazapine 7.5 mg 09/13/24 09:50 09/14/24 09:00 Mirtazapine 7.5 Mg Tablet PO 7.5 mg DAILY PJ Administration Ondansetron HCl 4 mg 09/10/24 00:24 09/10/24 13:19 Ondansetron Inj 4 Mg/2 Ml Vial IV PUSH 4 mg Q4H PRN Administration Nausea Pantoprazole Sodium 40 mg 09/11/24 09:00 09/24/24 09:26 Pantoprazole 40 Mg Tablet PO 40 mg QAM PJ Administration Sodium Chloride 20 ml 09/11/24 08:00 Central Line Flush IV PUSH PRN PRN after blood draws Vancomycin HCl 1 each 09/24/24 06:35 Vancomycin For Acute Kidney Injury IVPB PRN PRN Vancomycin Protocol Radiology Results: ITS Impressions Chest/Abdomen/Pelvis CT 09/09/24 21:59 IMPRESSION: CHEST: 1. Right pleural effusion. 2. No other definite acute cardiopulmonary pathology seen. 3. Slightly dilated esophagus which may indicate reflux esophagitis. ABDOMEN/PELVIS: 1. No evidence of appendicitis, diverticulitis or intestinal obstruction. 2. Bilateral renal cysts with small density in the right kidney lower pole. Follow-up advised. 3. Bilateral fat containing inguinal hernias. Small fat-containing umbilical hernia. Venous Doppler Study 09/11/24 10:07 IMPRESSION: 1: No lower extremity deep venous thrombosis. Chest CT 09/15/24 05:40 Impression: Velry-mb-purdymwl bilateral pleural effusions with probable minimal interstitial edema and minimal bibasilar atelectatic change. Carotid Doppler Study 09/15/24 05:43 Impression: Mildly elevated velocity in the right internal carotid artery suggests moderate (50-69%) stenosis, though noted significant plaque clearly evident. Antegrade flow in the bilateral vertebral arteries. Note: The methodology used is an indirect measurement validated against a direct method (such as the NASCET criteria) that compares diameters at the stenosis to the distal ICA. Brain MRI 09/15/24 15:43 IMPRESSION: 1. 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 No acute intracranial process. 2. Age-related changes including mild diffuse volume loss and mild scattered nonspecific white matter T2 hyperintensity consistent with chronic small vessel ischemic disease. Modified Barium Swallow 09/16/24 13:13 IMPRESSION: Patient tolerated regular consistency oral feedings in the upright position. Please correlate with speech pathologist findings and specific feeding recommendations. Chest/Abdomen CT 09/16/24 13:52 IMPRESSION: 1. Unchanged small bilateral posterior layering pleural effusions with dependent atelectasis in both lungs. No pulmonary edema or pneumonia in the aerated portions of the lungs. Head CT 09/19/24 16:37 IMPRESSION: No acute intracranial findings. Lumbar Puncture Fluoroscopy 09/19/24 17:48 IMPRESSION: 1. Successful fluoro-guided lumbar puncture with normal opening pressure of 18 cm water which yielded only 2.5 mm of clear CSF. Chest X-Ray 09/22/24 05:33 Impression: Minimal pleural effusions with questionable minimal bibasilar pulmonary edema. Abdomen X-Ray 09/24/24 06:30 Impression: NG tube in satisfactory position. Labs Labs: Laboratory Tests 09/24/24 04:00 09/24/24 04:00 Calcium 8.2 L Phosphorus 3.7 Magnesium 2.0 Total Bilirubin 0.3 AST 39 ALT 17 Alkaline Phosphatase 121 Total Protein 5.9 L Albumin 3.4 L Microbiology 09/19/24 17:15 Cerebral Spinal Fluid Gram Stain - Final 09/19/24 17:15 Cerebral Spinal Fluid CSF Culture - Final 09/19/24 17:15 Cerebral Spinal Fluid Acid Fast Bacilli Culture - Preliminary 09/18/24 18:12 Blood Blood Culture - Final 09/18/24 18:12 Blood Blood Culture - Final
[2024-09-24] MEDS: POTASSIUM CHLORIDE 20 MEQ PACKET (FOR LIQUID) FEED TUBE (11:04)
[2024-09-24 12:06] LABS: Glucose Point of Care 212 mg/dl (65-105)
--- NOTE | 2024-09-24 12:55 | P.PNIM_ITS ---
Progress Note: A&P Assessment and Plan (1) Febrile illness: Code(s): R50.9 - Fever, unspecified Status: Acute Assessment and Plan: 09/09: Patient presented with fevers, weakness, hypotension -UA was not reflective of UTI -CT Ch/A/P without contrast demonstrating right pleural effusion, slightly dilated esophagus, bilateral renal cyst,. Bilateral fat containing inguinal hernias and small fat containing umbilical hernia. -09/09: BCx NGTD MRSA nasal swab negative. COVID, influenza and RSV PCR negative. Started on cefepime and vancomycin (09/09) but vanco stopped on 09/11. Venous duplex negative for DVT. CXR with new opacities of the right lower lung zone which could represent atelectasis or pneumonia with small right pleural effusion. Repeat BCx 09/12 NGTD CRP 8 -> 27. WBC higher at 12K. But fever curve better. Patient feels better. Continue Cefepime for now. add flagyl for anaerobic coverage 09/14/24. recheck mrsa positive. will add linezolid TTE with no signifciant findings. Hx of aspiration PNA so will have speech therapy evaluate. Consider BERNA to exclude endocarditis but felt unlikely with negative BCx. does not meet's Carnes's criteria. on ceftriaxone,ampicillin ,vancomycin and acyclovir due to possible meningitis Lactic acid is normal CRP and ESR is elevated. Possible source of infection UTI s/p Lumbar puncture and CSF showed elevated elevated WBC and protein continue above Anti-infectives as ordered monitor (2) Sepsis: Code(s): A41.9 - Sepsis, unspecified organism Status: Acute Assessment and Plan: Patient was hypotensive in the ER, received 30 cc/kg IV fluids and central line was inserted Levophed started but able to be weaned off Blood pressures stable Continue antibiotics as above (3) Chronic kidney disease, stage 3: Code(s): N18.30 - Chronic kidney disease, stage 3 unspecified Status: Acute Assessment and Plan: Patient with history of CKD (baseline 2.50-3.26) On admission creatinine was 2.37. -patient did diurese well as he was volume overloaded and congested -received albumin -urine output has been adequate Cr worsened during the hospital stay suggesting GABRIELA. Peaked to 3.6 now stable and improving -continue to monitor renal function, electrolytes and urine output Nephrology consulted and board (4) Chronic obstructive pulmonary disease: Code(s): J44.9 - Chronic obstructive pulmonary disease, unspecified Status: Acute Assessment and Plan: No wheezing appreciated. Continue neb treatments. Continue home Spiriva now on 3 liters oxygen conitnue nighttime BiPAP BiPAP has been tapered off. Did have metabolic acidosis with uncompensated respiratory acidosis Repeat ABG stable (5) A-fib: Code(s): I48.91 - Unspecified atrial fibrillation Status: Acute Assessment and Plan: History of AFib -on carvedilol at home -will hold for now as patient's BP still soft -heart rate is controlled for now Not on anticoagulation at home due to history of bleeding gastric ulcer. His last EGD 3-4 years ago (6) Hypertension: Code(s): I10 - Essential (primary) hypertension Status: Chronic Assessment and Plan: Patient on Coreg, lisinopril and chlorthalidone at home. titrate home meds with clinical course (7) Type 2 diabetes mellitus: Code(s): E11.9 - Type 2 diabetes mellitus without complications Status: Chronic Assessment and Plan: Glucose remains well controlled. Continue AccuCheks covering with sliding scale. Hypoglycemia protocol available as needed. Resume home lantus and aspart when able (8) Renal mass: Code(s): N28.89 - Other specified disorders of kidney and ureter Status: Acute Assessment and Plan: Incidental finding by CT showing a left upper pole cyst measuring 2.9 cm. Exophytic cyst is seen in the right kidney midpole measuring 3 cm. Tiny hypodense lesion seen in the right kidney lower pole most likely hemorrhagic cyst. Tiny mass cannot be excluded. Follow-up advised. awaiting transfer to [facility] for oncology eval and treat (9) Slurred speech: Code(s): R47.81 - Slurred speech Status: Acute Assessment and Plan: Noticed some slurred speech 09/14/24 Brain MRI:1. 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 No acute intracranial process. 2. Age-related changes including mild diffuse volume loss and mild scattered nonspecific white matter T2 hyperintensity consistent with chronic small vessel ischemic disease. Echocardiogram was performed on 08/30/2024 which shows moderate aortic stenosis Carotid Doppler:Mildly elevated velocity in the right internal carotid artery suggests moderate (50-69%) stenosis, though noted significant plaque clearly evident. Antegrade flow in the bilateral vertebral arteries. Following Neurology recommendation Status post lumbar puncture Started on ceftriaxone, ampicillin, Acyclovir and vancomycin Neuro check q.[address] head today 09/19 negative Will hold methylprednisolone dysphagia: failed swallow. NG placed will start tube feeds today. Anticipate MBS on wednesday Plan At the request of , she wanted to transfer the [place] for continuity of care. Awaiting transfer to [facility] Subjective Date/time seen: 09/24/24 12:55 Interval history: Overnight agitation. Falling on lines. Mittens placed. Patient has NG placed. More awake and alert answering and following commands. Review of Systems Review of Systems: All systems reviewed & are unremarkable except as noted in HPI and below Exam Narrative: Patient is comfortable, slurred speech mild confusion patient repeats often HEENT: eyes are clear and none icteric LUNGS:CTA HEART: RR S1S2 ABD: BS+, Soft and nontender Lower extremities: no edema SKIN: nonjaundiced Neuro: grossly intact. Generalized weakness but moves all extremities follow commands Objective Data Vital Signs Vital Signs: Vital Signs - 24 hr 09/23/24 13:57 09/23/24 14:00 09/23/24 14:08 Temperature Pulse Rate 92 94 91 Respiratory Rate 20 20 Blood Pressure Pulse Oximetry Oxygen Delivery Oxygen Flow Rate Fraction of Inspired Oxygen 09/23/24 16:00 09/23/24 16:00 09/23/24 16:00 Temperature 97.6 F Pulse Rate 97 94 Respiratory Rate 16 Blood Pressure 153/97 H Pulse Oximetry 100 100 Oxygen Delivery Nasal Cannula Oxygen Flow Rate 3 Fraction of Inspired Oxygen 09/23/24 18:00 09/23/24 20:00 09/23/24 20:00 Temperature 97.6 F Pulse Rate 90 95 86 Respiratory Rate 18 Blood Pressure 148/96 H Pulse Oximetry 98 Oxygen Delivery Oxygen Flow Rate Fraction of Inspired Oxygen 09/23/24 20:00 09/23/24 20:53 09/23/24 20:58 Temperature Pulse Rate 100 103 H Respiratory Rate 20 20 Blood Pressure Pulse Oximetry 98 Oxygen Delivery Nasal Cannula Oxygen Flow Rate 3 Fraction of Inspired Oxygen 09/23/24 22:00 09/23/24 23:50 09/24/24 00:00 Temperature 97.8 F Pulse Rate 105 H 98 99 Respiratory Rate 20 Blood Pressure 138/88 Pulse Oximetry 98 Oxygen Delivery Oxygen Flow Rate Fraction of Inspired Oxygen 09/24/24 00:00 09/24/24 01:58 09/24/24 02:00 Temperature Pulse Rate 94 87 Respiratory Rate 20 Blood Pressure Pulse Oximetry 98 Oxygen Delivery Nasal Cannula Oxygen Flow Rate 3 Fraction of Inspired Oxygen 09/24/24 02:04 09/24/24 04:00 09/24/24 04:00 Temperature 98 F Pulse Rate 95 106 H 96 Respiratory Rate 20 18 Blood Pressure 158/90 H Pulse Oximetry 98 Oxygen Delivery Oxygen Flow Rate Fraction of Inspired Oxygen 09/24/24 04:00 09/24/24 06:00 09/24/24 08:00 Temperature 97.8 F Pulse Rate 101 H 86 Respiratory Rate 20 Blood Pressure 177/97 H Pulse Oximetry 98 100 Oxygen Delivery Nasal Cannula Oxygen Flow Rate 3 Fraction of Inspired Oxygen 09/24/24 08:00 09/24/24 08:19 09/24/24 08:19 Temperature Pulse Rate 108 H Respiratory Rate 20 Blood Pressure Pulse Oximetry 97 97 Oxygen Delivery Nasal Cannula Nasal Cannula Oxygen Flow Rate 3 3 Fraction of Inspired Oxygen 32 09/24/24 08:28 09/24/24 12:00 Temperature 97.5 F L Pulse Rate 93 99 Respiratory Rate 20 16 Blood Pressure 153/100 H Pulse Oximetry 100 Oxygen Delivery Oxygen Flow Rate Fraction of Inspired Oxygen Intake/Output Intake/Output: Intake & Output 09/21/24 09/22/24 09/23/24 09/24/24 23:59 23:59 23:59 23:59 Intake Total 1868 1268 768 100 Output Total 1025 3325 5727 2771 Balance 093 -3506 -7914 -5708 Meds/Results Medications: Active Medications Generic Name Dose Route Start Last Admin Trade Name Freq PRN Reason Stop Dose Admin Acetaminophen 650 mg 09/10/24 00:24 09/14/24 05:16 Acetaminophen 325 Mg Tablet PO 650 mg Q4H PRN Administration Mild Pain (1-3) or Fever Albuterol/Ipratropium 3 ml 09/19/24 20:00 09/24/24 08:19 Ipratropium 0.5 Mg/Albuterol Sulfate 2.5 Mg Ampul.Neb 3 Ml INHALATION 3 ml Q6HRT PJ Administration Aspirin 81 mg 09/15/24 09:00 09/24/24 09:26 Aspirin 81 Mg Enteric Tablet PO 81 mg QAM PJ Administration Atorvastatin Calcium 40 mg 09/15/24 09:00 09/24/24 09:26 Atorvastatin 40 Mg Tablet PO 40 mg DAILY PJ Administration Dextrose 12.5 gm 09/10/24 09:20 Dextrose 50% 25 Gm/50 Ml Syringe IV PUSH PRN PRN Hypoglycemia Protocol Dorzolamide/Timolol 1 drop 09/13/24 09:40 09/24/24 09:27 Dorzolamide/Timolol Ophth Sarah 10 Ml Bottle EACH EYE 1 drop Q12HR PJ Administration Enoxaparin Sodium 30 mg 09/11/24 09:00 09/18/24 09:42 Enoxaparin 30 Mg/0.3 Ml Syringe SUB-Q 30 mg DAILY PJ Administration Glucagon 1 mg 09/10/24 09:20 Glucagon For Inj 1 Mg Vial IM PRN PRN Hypoglycemia Protocol Glucose 15 gm 09/10/24 09:20 Glucose Oral Gel 15 Gm Of Glucse In 37.5 Gm Tube PO PRN PRN Hypoglycemia Protocol Hydralazine HCl 10 mg 09/22/24 11:30 09/22/24 11:40 Hydralazine Hcl 20 Mg/Ml Vial IV PUSH 10 mg Q6HR PRN Administration Blood Pressure - High Dextrose 1,000 mls @ 100 mls/hr 09/10/24 09:20 Dextrose 5% 1,000 Ml IVPB PRN PRN Hypoglycemia Protocol Ceftriaxone Sodium 2 gm in 100 mls @ 200 mls/hr 09/18/24 12:45 09/24/24 09:26 Rocephin 2 Gm/Ns 100 Ml IVPB 200 mls/hr Q12HR PJ Administration Ampicillin Sodium 2 gm in 100 mls @ 200 mls/hr 09/18/24 14:00 09/24/24 06:17 Ampicillin 2 Gm/Ns 100 Ml IVPB Infused Q8HR PJ Infusion Acyclovir Sodium 900 mg/ 268 mls @ 249.625 mls/hr 09/18/24 18:00 09/23/24 19:01 Dextrose IVPB Infused Q24H PJ Infusion Insulin Aspart 4 - 8 units 09/21/24 00:00 09/24/24 05:48 Insulin Aspart (*Bkc) 100 Units/Ml SUB-Q 4 units Q6HR PJ Administration Protocol Methylprednisolone Sodium Succinate 40 mg 09/19/24 06:05 09/22/24 11:27 Methylprednisolone Sod Succ 40 Mg Vial IV PUSH 40 mg Q6HR PJ Administration Mirtazapine 7.5 mg 09/13/24 09:50 09/14/24 09:00 Mirtazapine 7.5 Mg Tablet PO 7.5 mg DAILY PJ Administration Ondansetron HCl 4 mg 09/10/24 00:24 09/10/24 13:19 Ondansetron Inj 4 Mg/2 Ml Vial IV PUSH 4 mg Q4H PRN Administration Nausea Pantoprazole Sodium 40 mg 09/11/24 09:00 09/24/24 09:26 Pantoprazole 40 Mg Tablet PO 40 mg QAM PJ Administration Sodium Chloride 20 ml 09/11/24 08:00 Central Line Flush IV PUSH PRN PRN after blood draws Vancomycin HCl 1 each 09/24/24 06:35 Vancomycin For Acute Kidney Injury IVPB PRN PRN Vancomycin Protocol Radiology Results: ITS Impressions Chest/Abdomen/Pelvis CT 09/09/24 21:59 IMPRESSION: CHEST: 1. Right pleural effusion. 2. No other definite acute cardiopulmonary pathology seen. 3. Slightly dilated esophagus which may indicate reflux esophagitis. ABDOMEN/PELVIS: 1. No evidence of appendicitis, diverticulitis or intestinal obstruction. 2. Bilateral renal cysts with small density in the right kidney lower pole. Follow-up advised. 3. Bilateral fat containing inguinal hernias. Small fat-containing umbilical hernia. Venous Doppler Study 09/11/24 10:07 IMPRESSION: 1: No lower extremity deep venous thrombosis. Chest CT 09/15/24 05:40 Impression: [id number] bilateral pleural effusions with probable minimal interstitial edema and minimal bibasilar atelectatic change. Carotid Doppler Study 09/15/24 05:43 Impression: Mildly elevated velocity in the right internal carotid artery suggests moderate (50-69%) stenosis, though noted significant plaque clearly evident. Antegrade flow in the bilateral vertebral arteries. Note: The methodology used is an indirect measurement validated against a direct method (such as the NASCET criteria) that compares diameters at the stenosis to the distal ICA. Brain MRI 09/15/24 15:43 IMPRESSION: 1. 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 No acute intracranial process. 2. Age-related changes including mild diffuse volume loss and mild scattered nonspecific white matter T2 hyperintensity consistent with chronic small vessel ischemic disease. Modified Barium Swallow 09/16/24 13:13 IMPRESSION: Patient tolerated regular consistency oral feedings in the upright position. Please correlate with speech pathologist findings and specific feeding recommendations. Chest/Abdomen CT 09/16/24 13:52 IMPRESSION: 1. Unchanged small bilateral posterior layering pleural effusions with dependent atelectasis in both lungs. No pulmonary edema or pneumonia in the aerated portions of the lungs. Head CT 09/19/24 16:37 IMPRESSION: No acute intracranial findings. Lumbar Puncture Fluoroscopy 09/19/24 17:48 IMPRESSION: 1. Successful fluoro-guided lumbar puncture with normal opening pressure of 18 cm water which yielded only 2.5 mm of clear CSF. Chest X-Ray 09/22/24 05:33 Impression: Minimal pleural effusions with questionable minimal bibasilar pulmonary edema. Abdomen X-Ray 09/24/24 06:30 Impression: NG tube in satisfactory position. Labs Labs: Laboratory Results - last 24 hr 09/20/24 09/20/24 09/23/24 03:56 19:41 16:56 WBC RBC Hgb Hct MCV MCH MCHC RDW Plt Count MPV Immature Gran % (Auto) Neut % (Auto) Lymph % (Auto) [place] % (Auto) Eos % (Auto) Baso % (Auto) Lymph # (Auto) [place] # (Auto) Eos # (Auto) Baso # (Auto) Abs Immat Gran (auto) Absolute Neuts (auto) Absolute Nucleated RBC Band Neutrophils % Nucleated RBC % Platelet Estimate Hypochromasia Anisocytosis Schistocytes Puncture Site Left radial ABG pH 7.373 ABG pCO2 50.7 H ABG pO2 102.7 H ABG PO2/FiO2 Ratio 3.21 ABG HCO3 28.9 H ABG O2 Saturation 97.5 ABG O2 Content 13.8 L ABG Base Excess 3.0 A-a Gradient 66.1 Oxyhemoglobin 97.3 Total Hemoglobin 10.0 L O2 Delivery Device Nasal cannula O2 Liters/Min 3.0 FiO2 32 Sodium Potassium Chloride Carbon Dioxide Anion Gap BUN Creatinine Estim Creat Clear Calc Estimated GFR Glucose POC Capillary Glucose Calcium Phosphorus Magnesium Total Bilirubin AST ALT Alkaline Phosphatase Total Protein Albumin Vancomycin Trough Serum Immunofixation Normal pattern. Enhanced Crossmatch See Detail 09/23/24 09/23/24 09/24/24 18:17 22:47 00:51 WBC RBC Hgb Hct MCV MCH MCHC RDW Plt Count MPV Immature Gran % (Auto) Neut % (Auto) Lymph % (Auto) [place] % (Auto) Eos % (Auto) Baso % (Auto) Lymph # (Auto) [place] # (Auto) Eos # (Auto) Baso # (Auto) Abs Immat Gran (auto) Absolute Neuts (auto) Absolute Nucleated RBC Band Neutrophils % Nucleated RBC % Platelet Estimate Hypochromasia Anisocytosis Schistocytes Puncture Site ABG pH ABG pCO2 ABG pO2 ABG PO2/FiO2 Ratio ABG HCO3 ABG O2 Saturation ABG O2 Content ABG Base Excess A-a Gradient Oxyhemoglobin Total Hemoglobin O2 Delivery Device O2 Liters/Min FiO2 Sodium Potassium Chloride Carbon Dioxide Anion Gap BUN Creatinine Estim Creat Clear Calc Estimated GFR Glucose POC Capillary Glucose 275 H 239 H Calcium Phosphorus Magnesium Total Bilirubin AST ALT Alkaline Phosphatase Total Protein Albumin Vancomycin Trough 25.9 H Serum Immunofixation Enhanced Crossmatch 09/24/24 09/24/24 09/24/24 04:00 05:43 11:59 WBC 15.4 H RBC 3.89 L Hgb 9.6 L Hct 32.8 L MCV 84.3 MCH 24.7 L MCHC 29.3 L RDW 17.3 H Plt Count 663 H MPV 9.5 Immature Gran % (Auto) 1.2 H Neut % (Auto) 80.3 H Lymph % (Auto) 6.9 L [place] % (Auto) 11.5 H Eos % (Auto) 0.0 Baso % (Auto) 0.1 L Lymph # (Auto) 1.07 [place] # (Auto) 1.8 H Eos # (Auto) 0.0 Baso # (Auto) 0.0 Abs Immat Gran (auto) 0.19 H Absolute Neuts (auto) 12.4 H Absolute Nucleated RBC 0.140 H Band Neutrophils % Not Reportable Nucleated RBC % 0.9 H Platelet Estimate Increased Hypochromasia 2+ Anisocytosis 1+ Schistocytes None seen Puncture Site ABG pH ABG pCO2 ABG pO2 ABG PO2/FiO2 Ratio ABG HCO3 ABG O2 Saturation ABG O2 Content ABG Base Excess A-a Gradient Oxyhemoglobin Total Hemoglobin O2 Delivery Device O2 Liters/Min FiO2 Sodium 147 H Potassium 3.2 L Chloride 103 Carbon Dioxide 32 H Anion Gap 12 BUN 78 H Creatinine 2.95 H Estim Creat Clear Calc 18 Estimated GFR 20 L Glucose 224 H POC Capillary Glucose 219 H 212 H Calcium 8.2 L Phosphorus 3.7 Magnesium 2.0 Total Bilirubin 0.3 AST 39 ALT 17 Alkaline Phosphatase 121 Total Protein 5.9 L Albumin 3.4 L Vancomycin Trough Serum Immunofixation Enhanced Crossmatch
--- NOTE | 2024-09-24 17:00 | PCSTNOTE ---
Therapist saw patient who was more awake and alert and requested Modified Barium Swallow study for tomorrow to further assess risk for aspiration prior to initiating oral feedings. Dr. Miller in agreement. Also requested occasional ice chips if patient verbalized need for water and again physician in agreement. SHEA Maguire, instructed for minimal ice chips at a time but allowed throughout the night as needed. She voiced understanding.
[2024-09-24] MEDS: ACYCLOVIR SODIUM IVPB 900 MG in DEXTROSE 5% IN WATER 250 ML 250 MG IVPB (17:21)
[2024-09-24 18:26] LABS: Glucose Point of Care 287 mg/dl (65-105)
[2024-09-24 23:25] LABS: Vancomycin Random 20.7 ug/mL (10-20)
[2024-09-24 23:47] LABS: Glucose Point of Care 194 mg/dl (65-105)
[2024-09-25] VITALS (22 sets, daily range): BP systolic 105–175; BP diastolic 76–103; PULSE 78–120; RESP 16–26; TEMP 36.3–36.7; O2SAT 94–100
[2024-09-25] MEDS: IPRATROPIUM 0.5 MG/ALBUTEROL SULFATE 2.5 MG AMPUL.NEB 3 ML INHALATION ×5 (01:38→21:11)
[2024-09-25 04:22] LABS: Basophils Percent Auto 0.2 % (0.2-1.2); Eosinophils Absolute Auto 0.1 K/mm3 (0-0.3); Eosinophils Percent Auto 0.3 % (0-4.4); Hematocrit 34.8 % (42.0-52.0); Hemoglobin 10.2 g/dL (14.0-18.0); Immature Granulocyte Absolute 0.32 K/mm3 (0.00-0.031); Lymphocytes Absolute Auto 1.51 K/mm3 (0.9-3.2); Lymphocytes Percent Auto 9.4 % (18.3-44.2); Mean Corpuscular HGB Conc 29.3 g/dl (32-36); Mean Corpuscular Hemoglobin 24.7 pg (26-34); Mean Corpuscular Volume 84.3 fl (80-100); Mean Platelet Volume 9.7 fl (7.4-10.4); Monocytes Absolute Auto 1.9 K/mm3 (0.1-0.6); Neutrophils Absolute Auto 12.2 K/mm3 (1.3-6.7); Neutrophils Percent Auto 76.1 % (45.5-73.1); Nucleated Red Blood Cells Perc 1.2 % (0.0-0.2); Platelet Count Result 632 k/mm3 (150-375); Red Blood Count 4.13 M/mm3 (4.6-6.20); Red Cell Distribution Width 17.6 % (11.5-14.5)
[2024-09-25 04:40] LABS: Platelet Estimate Increased (Adequate)
[2024-09-25 04:41] LABS: Anisocytosis 1+; Hypochromasia 1+; Microcytosis 1+ (NORMAL); Ovalocytes 1+
[2024-09-25 04:42] LABS: Schistocytes None Seen
[2024-09-25 05:02] LABS: Alanine Aminotransferase 19 U/L (6-50); Albumin Level 3.3 g/dL (3.5-5.1); Alkaline Phosphatase 153 U/L (38-126); Anion Gap 10 mmol/L (4-12); Aspartate Amino Transferase 45 U/L (17-59); Bilirubin,Total 0.4 mg/dL (0.2-1.3); Blood Urea Nitrogen 69 mg/dL (9-20); Calcium 8.3 mg/dL (8.4-10.2); Carbon Dioxide 35 mmol/L (22-30); Chloride 104 mmol/L (98-107); Estimated CRCL calculation 22 ml/min; Estimated Glomerular Filt Rate 26; Glucose 239 mg/dL (65-110); Magnesium 1.6 mg/dL (1.6-2.3); Phosphorus 3.3 mg/dL (2.5-4.5); Potassium 2.9 mmol/L (3.4-5.0); Sodium 149 mmol/L (137-145); Total Protein 5.7 g/dL (6.3-8.2)
[2024-09-25] MEDS: INSULIN ASPART (*BKC) 100 UNITS/ML SUB-Q ×4 (05:06→23:20)
[2024-09-25] MEDS: AMPICILLIN 2 GM/NS 100 ML 2 GM/100 ML BAG IVPB ×3 (05:07→21:01)
[2024-09-25] MEDS: hydrALAZINE HCL 20 MG/ML VIAL 10 MG IV PUSH (08:43)
[2024-09-25] MEDS: cefTRIAXone 2 GM/NS 100 ML 2 GM/100 ML BAG IVPB ×2 (10:14→21:01)
[2024-09-25] MEDS: DORZOLAMIDE/TIMOLOL OPHTH SOL 10 ML BOTTLE 1 DROP EACH EYE ×2 (10:15→21:00)
[2024-09-25] MEDS: POTASSIUM CHLORIDE 20 MEQ PACKET (FOR LIQUID) 40 MEQ FEED TUBE ×3 (10:19→21:00)
[2024-09-25 10:25] LABS: Alveolar/Arterial O2 Gradient 61.4 mmHg; Base Excess ABG 8.6 mEq/l (+/-2.0); Fractional Inspired Oxygen 28 %; HCO3 ABG 33.1 mEq/l (22.0-26.0); Oxygen Content ABG 15.6 %vol (16.0-22.0); Oxygen Saturation ABG 96.9 % (95.0-100.0); Oxyhemoglobin 95.8 % THb (90.0-100.0); PCO2 ABG 45.3 mmHg (35.0-45.0); PO2 ABG 84.8 mmHg (80.0-100.0); PO2 FiO2 Ratio Arterial Blood 3.03 %; Total Hemoglobin 11.5 g/dL (12.0-18.0); pH ABG 7.481 (7.350-7.450)
[2024-09-25 10:26] LABS: Device NASAL CANNULA; Modified Allen's Test Pass; Site Drawn LEFT RADIAL
--- NOTE | 2024-09-25 11:35 | P.PNNP_ITS ---
Progress Note: A&P Assessment and Plan (1) Acute kidney injury: Code(s): N17.9 - Acute kidney failure, unspecified Status: Acute Assessment and Plan: * improvement noted (if not back to baseline) * admission creatinine was close to baseline (2.37mg/dl) * appears to have peaked/plateaued at 3.70mg/dl * suspect multifactorial etiology: * hypotension/shock on admission * sepsis/infection * insensible losses (high fevers on admission) * prerenal factors (poor oral/fluid intake prior to admission) * SARAH-I and chlorthalidone use prior to admission * other (?) * evaluation to date: * CT A/P x 2 without evidence of obstruction * urine electrolytes non-prerenal * urine eosinophils negative * CPK okay * evidence of proteinuria * reasonable urine output noted * follow trend repeat labs and UOP (2) Stage 4 chronic kidney disease: Code(s): N18.4 - Chronic kidney disease, stage 4 (severe) Status: Chronic Assessment and Plan: * baseline creatinine runs ~ 1.9 - 2.3mg/dl since 2021 * however, has fluctuated to extremes with recent admissions/hospitalizations at [facility] in the last couple of months... * outpatient labs since 2024 show creatinine seems to be running closer to 2.2 - 2.7mg/dl * last outpatient creatinine was 2.66mg/dl on 07/18/24 * discharge creatinine from August 2024 hospitalization was 2.99mg/dl * baseline CKD is secondary to HTN, diabetes, vascular disease, and age-related change * follows with [facility] (Dr. Lin Guerrero) (3) Febrile illness: Code(s): R50.9 - Fever, unspecified Status: Acute Assessment and Plan: * as noted on presenation * evaluation to date noted: * UA was not reflective of UTI * CT C/A/P without contrast demonstrating right pleural effusion, slightly dilated esophagus, bilateral renal cyst, bilateral fat containing inguinal hernias and small fat containing umbilical hernia * blood cultures (from 09/09 and 09/12) with no growth to date * viral swan for COVID/RSV/influenza negative * venous duplex negative for DVTs * TTE with no significant findings * last CXR with new opacities of the right lower lung zone which could represent atelectasis or pneumonia * s/p lumbar puncture and CSF showed elevated elevated WBC and protein * elevated CRP and WBC noted * on empiric antibiotic therapy (to cover for pneumoina and meningitis) * continue supportive therapy (4) Slurred speech: Code(s): R47.81 - Slurred speech Status: Acute Assessment and Plan: * apparently noted on 09/14/24 * evaluation noted: * Brain MRI -- small old lacunar infarct at the right subinsular white matter; no acute intracranial process; age-related changes including mild diffuse volume loss and mild scattered nonspecific white matter T2 hyperintensity consistent with chronic small vessel ischemic disease * Echocardiogram (08/30) -- moderate aortic stenosis * Carotid Doppler -- mildly elevated velocity in the right internal carotid artery suggests moderate (50-69%) stenosis, though noted significant plaque clearly evident; antegrade flow in the bilateral vertebral arteries * repeat CT of head (09/19) -- negative * LP studies noted (aee #3) * on antibiotic therapy for possible meningitis * follow mental status and neuro checks (5) Chronic obstructive pulmonary disease: Code(s): J44.9 - Chronic obstructive pulmonary disease, unspecified Status: Acute Assessment and Plan: * continue nebulizer treatments PRN * on home Spiriva * supplemental oxygen as needed * night time BiPAP therapy (6) A-fib: Code(s): I48.91 - Unspecified atrial fibrillation Status: Chronic Assessment and Plan: * known history * rate control strategy * was on carvedilol at home * resume as blood presssure allows * not on anticoagulation at home due to history of bleeding gastric ulcer. (7) Hypertension: Code(s): I10 - Essential (primary) hypertension Status: Chronic Assessment and Plan: * BP initially on hold due given hypotension on presentation * was on coreg, lisinopril and chlorthalidone at home... * resume as clinical course dictated * follow trend of hemodynamics (8) Type 2 diabetes mellitus: Code(s): E11.9 - Type 2 diabetes mellitus without complications Status: Chronic Assessment and Plan: * follow accu-cheks * glycemic control per hospitalist Will continue to follow. L Subjective Date/time seen: 09/25/24 11:35 Interval history: Follow-up for acute kidney injury on chronic kidney disease. Mentation seems to be doing better at the time of my visit; renal function/creatinine continues to improve/stabilize with good urine output noted; passed MBS earlier this morning and diet being slowly advanced; no apparent distress noted; no other issues/events overnight or earlier this AM. Exam 2 Narrative: General: elderly and somewhat ill-appearing male in NAD Heart: normal S1 and S2; no rub Lungs: coarse breath sounds Abdomen: soft, nontender, nondistended, positive bowel sounds Extremities: no cyanosis or clubbing; no edema Skin: warm and dry Objective Data Vital Signs Vital Signs: Vital Signs Temp Pulse Resp BP Pulse Ox O2 Del Method O2 Flow Rate 09/25/24 11:09 97.6 F 106 H 26 H 135/80 98 09/25/24 10:00 102 H 09/25/24 08:00 102 H 09/25/24 07:40 97.8 F 102 H 22 H 175/103 H 99 09/25/24 07:40 98 24 H 09/25/24 07:32 100 24 H 09/25/24 07:32 98 Nasal Cannula 1 09/25/24 06:00 78 09/25/24 04:00 98.0 F 95 18 160/81 H 100 09/25/24 04:00 97 09/25/24 04:00 99 Nasal Cannula 1 09/25/24 02:00 107 H 09/25/24 01:38 104 H 20 09/25/24 00:00 97.8 F 89 16 158/97 H 96 09/25/24 00:00 97 09/24/24 23:55 97 Nasal Cannula 1 09/24/24 22:00 117 H 09/24/24 21:27 100 20 09/24/24 20:00 99 09/24/24 20:00 99 Nasal Cannula 2 09/24/24 19:54 97.5 F L 98 16 150/94 H 98 Intake/Output Intake/Output: Intake & Output 09/22/24 09/23/24 09/24/24 09/25/24 23:59 23:59 23:59 23:59 Intake Total 1268 768 500 889 Output Total 3325 6029 3609 325 [id number] Meds/Results Medications: Active Medications Generic Name Dose Route Start Last Admin Trade Name Freq PRN Reason Stop Dose Admin Acetaminophen 650 mg 09/10/24 00:24 09/14/24 05:16 Acetaminophen 325 Mg Tablet PO 650 mg Q4H PRN Administration Mild Pain (1-3) or Fever Albuterol/Ipratropium 3 ml 09/19/24 20:00 09/25/24 14:02 Ipratropium 0.5 Mg/Albuterol Sulfate 2.5 Mg Ampul.Neb 3 Ml INHALATION 3 ml Q6HRT PJ Administration Aspirin 81 mg 09/15/24 09:00 09/25/24 08:59 Aspirin 81 Mg Enteric Tablet PO Not Given QAM PJ Atorvastatin Calcium 40 mg 09/15/24 09:00 09/25/24 08:59 Atorvastatin 40 Mg Tablet PO Not Given DAILY PJ Dextrose 12.5 gm 09/10/24 09:20 Dextrose 50% 25 Gm/50 Ml Syringe IV PUSH PRN PRN Hypoglycemia Protocol Dorzolamide/Timolol 1 drop 09/13/24 09:40 09/25/24 10:15 Dorzolamide/Timolol Ophth Sarah 10 Ml Bottle EACH EYE 1 drop Q12HR PJ Administration Enoxaparin Sodium 30 mg 09/11/24 09:00 09/18/24 09:42 Enoxaparin 30 Mg/0.3 Ml Syringe SUB-Q 30 mg DAILY PJ Administration Glucagon 1 mg 09/10/24 09:20 Glucagon For Inj 1 Mg Vial IM PRN PRN Hypoglycemia Protocol Glucose 15 gm 09/10/24 09:20 Glucose Oral Gel 15 Gm Of Glucse In 37.5 Gm Tube PO PRN PRN Hypoglycemia Protocol Hydralazine HCl 10 mg 09/22/24 11:30 09/25/24 08:43 Hydralazine Hcl 20 Mg/Ml Vial IV PUSH 10 mg Q6HR PRN Administration Blood Pressure - High Dextrose 1,000 mls @ 100 mls/hr 09/10/24 09:20 Dextrose 5% 1,000 Ml IVPB PRN PRN Hypoglycemia Protocol Ceftriaxone Sodium 2 gm in 100 mls @ 200 mls/hr 09/18/24 12:45 09/25/24 10:14 Rocephin 2 Gm/Ns 100 Ml IVPB 10/01/24 21:29 200 mls/hr Q12HR PJ Administration Ampicillin Sodium 2 gm in 100 mls @ 200 mls/hr 09/18/24 14:00 09/25/24 13:25 Ampicillin 2 Gm/Ns 100 Ml IVPB 10/02/24 06:29 200 mls/hr Q8HR PJ Administration Acyclovir Sodium 900 mg/ 268 mls @ 249.625 mls/hr 09/18/24 18:00 09/24/24 17:21 Dextrose IVPB 10/08/24 19:05 250 mls/hr Q24H PJ Administration Insulin Aspart 4 - 8 units 09/21/24 00:00 09/25/24 13:04 Insulin Aspart (*Bkc) 100 Units/Ml SUB-Q 4 units Q6HR PJ Administration Protocol Methylprednisolone Sodium Succinate 40 mg 09/19/24 06:05 09/22/24 11:27 Methylprednisolone Sod Succ 40 Mg Vial IV PUSH 40 mg Q6HR PJ Administration Mirtazapine 7.5 mg 09/13/24 09:50 09/14/24 09:00 Mirtazapine 7.5 Mg Tablet PO 7.5 mg DAILY PJ Administration Ondansetron HCl 4 mg 09/10/24 00:24 09/10/24 13:19 Ondansetron Inj 4 Mg/2 Ml Vial IV PUSH 4 mg Q4H PRN Administration Nausea Pantoprazole Sodium 40 mg 09/11/24 09:00 09/25/24 08:59 Pantoprazole 40 Mg Tablet PO Not Given QAM REPLACED BY [facility] Potassium Chloride 40 meq 09/25/24 21:00 Potassium Chloride 20 Meq Packet (For Liquid) FEED TUBE 09/25/24 21:01 ONCE ONE Sodium Chloride 20 ml 09/11/24 08:00 Central Line Flush IV PUSH PRN PRN after blood draws Radiology Results: ITS Impressions Chest/Abdomen/Pelvis CT 09/09/24 21:59 IMPRESSION: CHEST: 1. Right pleural effusion. 2. No other definite acute cardiopulmonary pathology seen. 3. Slightly dilated esophagus which may indicate reflux esophagitis. ABDOMEN/PELVIS: 1. No evidence of appendicitis, diverticulitis or intestinal obstruction. 2. Bilateral renal cysts with small density in the right kidney lower pole. Follow-up advised. 3. Bilateral fat containing inguinal hernias. Small fat-containing umbilical hernia. Venous Doppler Study 09/11/24 10:07 IMPRESSION: 1: No lower extremity deep venous thrombosis. Chest CT 09/15/24 05:40 Impression: [id number] bilateral pleural effusions with probable minimal interstitial edema and minimal bibasilar atelectatic change. Carotid Doppler Study 09/15/24 05:43 Impression: Mildly elevated velocity in the right internal carotid artery suggests moderate (50-69%) stenosis, though noted significant plaque clearly evident. Antegrade flow in the bilateral vertebral arteries. Note: The methodology used is an indirect measurement validated against a direct method (such as the NASCET criteria) that compares diameters at the stenosis to the distal ICA. Brain MRI 09/15/24 15:43 IMPRESSION: 1. 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 No acute intracranial process. 2. Age-related changes including mild diffuse volume loss and mild scattered nonspecific white matter T2 hyperintensity consistent with chronic small vessel ischemic disease. Chest/Abdomen CT 09/16/24 13:52 IMPRESSION: 1. Unchanged small bilateral posterior layering pleural effusions with dependent atelectasis in both lungs. No pulmonary edema or pneumonia in the aerated portions of the lungs. Head CT 09/19/24 16:37 IMPRESSION: No acute intracranial findings. Lumbar Puncture Fluoroscopy 09/19/24 17:48 IMPRESSION: 1. Successful fluoro-guided lumbar puncture with normal opening pressure of 18 cm water which yielded only 2.5 mm of clear CSF. Abdomen X-Ray 09/24/24 06:30 Impression: NG tube in satisfactory position. Modified Barium Swallow 09/25/24 09:44 IMPRESSION: Pharyngeal dysphagia with laryngeal penetration with thin liquids but without aspiration. Please correlate with speech pathologist findings and specific feeding recommendations. Chest X-Ray 09/25/24 10:16 IMPRESSION: Right basilar atelectasis versus pneumonia. Minimal left pleural effusion. Labs Labs: Laboratory Tests 09/25/24 04:10 09/25/24 04:10 Calcium 8.3 L Phosphorus 3.3 Magnesium 1.6 Total Bilirubin 0.4 AST 45 ALT 19 Alkaline Phosphatase 153 H Total Protein 5.7 L Albumin 3.3 L Random Vancomycin
[2024-09-25 11:51] LABS: Glucose Point of Care 250 mg/dl (65-105)
[2024-09-25] MEDS: MAGNESIUM SULF 1 GM/D5W 100 ML 1 GM/100 ML BAG IVPB (13:03)
--- NOTE | 2024-09-25 13:44 | PCNFU ---
Nutrition Follow-Up Complete: Unintentional weight loss related to poor appetite and intake as evidenced by pt report and charted intake Goal:PO intake 50% or greater of meals and supplements Pt not meeting goal Pt current nutrition is Heart healthy, minced and moist level 5 diet, moderately thick liquids level 3. Nutrition recommendation: Add Ensure Enlive BID, chocolate for supplement, continue with tube feed at this time Last recorded weight is 90 kg. Bowel Motility: +BM 09/22 Labs Reviewed: Hgb:10.2, HCT:34.8, NA:149, K:2.9, GFR:26, Cr:2.4, Glu:239 Meds Noted:novolog, protonix, lovenox, solumedrol, remeron Skin: WNL Additional Notes: Pt was NPO due to mentation, tube feeding started over the weekend: Nepro @ 10ml/hr (396kcals, over 22hrs). Pt evaluated by speech this morning with MBS and recommendations for a minced and moist level 5 diet consistency, level 2 mildly thick liquids. Spoke with pt and , both wanting supplements in place. Recommend Ensure Enlive BID, chocolate per preference. Also recommend to continue with tube feed at this time for supplemental calories. Monitor intake, wt, labs, tube feed. Follow up every wednesday and wednesday
--- NOTE | 2024-09-25 14:59 | PM.IMPN ---
Progress Note: A&P Assessment and Plan (1) Febrile illness: Code(s): R50.9 - Fever, unspecified Status: Acute Assessment and Plan: 09/09: Patient presented with fevers, weakness, hypotension -UA was not reflective of UTI -CT Ch/A/P without contrast demonstrating right pleural effusion, slightly dilated esophagus, bilateral renal cyst,. Bilateral fat containing inguinal hernias and small fat containing umbilical hernia. -09/09: BCx NGTD MRSA nasal swab negative. COVID, influenza and RSV PCR negative. Started on cefepime and vancomycin (09/09) but vanco stopped on 09/11. Venous duplex negative for DVT. CXR with new opacities of the right lower lung zone which could represent atelectasis or pneumonia with small right pleural effusion. Repeat BCx 09/12 NGTD CRP 8 -> 27. WBC higher at 12K. But fever curve better. Patient feels better. Continue Cefepime for now. add flagyl for anaerobic coverage 09/14/24. recheck mrsa positive. will add linezolid TTE with no signifciant findings. Hx of aspiration PNA so will have speech therapy evaluate. Consider BERNA to exclude endocarditis but felt unlikely with negative BCx. does not meet's Carnes's criteria. on ceftriaxone,ampicillin ,vancomycin and acyclovir due to possible meningitis Lactic acid is normal CRP and ESR is elevated. Possible source of infection UTI s/p Lumbar puncture and CSF showed elevated elevated WBC and protein continue above Anti-infectives as ordered monitor To complete antibiotic course 2 weeks and antiviral 3 weeks (2) Sepsis: Code(s): A41.9 - Sepsis, unspecified organism Status: Acute Assessment and Plan: Patient was hypotensive in the ER, received 30 cc/kg IV fluids and central line was inserted Levophed started but able to be weaned off Blood pressures stable Continue antibiotics as above (3) Chronic kidney disease, stage 3: Code(s): N18.30 - Chronic kidney disease, stage 3 unspecified Status: Acute Assessment and Plan: Patient with history of CKD (baseline 2.50-3.26) On admission creatinine was 2.37. -patient did diurese well as he was volume overloaded and congested -received albumin -urine output has been adequate Cr worsened during the hospital stay suggesting GABRIELA. Peaked to 3.6 now stable and improving -continue to monitor renal function, electrolytes and urine output Nephrology consulted and board (4) Chronic obstructive pulmonary disease: Code(s): J44.9 - Chronic obstructive pulmonary disease, unspecified Status: Acute Assessment and Plan: No wheezing appreciated. Continue neb treatments. Continue home Spiriva now on 3 liters oxygen conitnue nighttime BiPAP BiPAP has been tapered off. Did have metabolic acidosis with uncompensated respiratory acidosis Repeat ABG stable (5) A-fib: Code(s): I48.91 - Unspecified atrial fibrillation Status: Acute Assessment and Plan: History of AFib -on carvedilol at home -will hold for now as patient's BP still soft -heart rate is controlled for now Not on anticoagulation at home due to history of bleeding gastric ulcer. His last EGD 3-4 years ago (6) Hypertension: Code(s): I10 - Essential (primary) hypertension Status: Chronic Assessment and Plan: Patient on Coreg, lisinopril and chlorthalidone at home. titrate home meds with clinical course (7) Type 2 diabetes mellitus: Code(s): E11.9 - Type 2 diabetes mellitus without complications Status: Chronic Assessment and Plan: Glucose remains well controlled. Continue AccuCheks covering with sliding scale. Hypoglycemia protocol available as needed. Resume home lantus and aspart when able (8) Renal mass: Code(s): N28.89 - Other specified disorders of kidney and ureter Status: Acute Assessment and Plan: Incidental finding by CT showing a left upper pole cyst measuring 2.9 cm. Exophytic cyst is seen in the right kidney midpole measuring 3 cm. Tiny hypodense lesion seen in the right kidney lower pole most likely hemorrhagic cyst. Tiny mass cannot be excluded. Follow-up advised. awaiting transfer to [facility] for oncology eval and treat (9) Slurred speech: Code(s): R47.81 - Slurred speech Status: Acute Assessment and Plan: Noticed some slurred speech 09/14/24 Brain MRI:1. 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 No acute intracranial process. 2. Age-related changes including mild diffuse volume loss and mild scattered nonspecific white matter T2 hyperintensity consistent with chronic small vessel ischemic disease. Echocardiogram was performed on 08/30/2024 which shows moderate aortic stenosis Carotid Doppler:Mildly elevated velocity in the right internal carotid artery suggests moderate (50-69%) stenosis, though noted significant plaque clearly evident. Antegrade flow in the bilateral vertebral arteries. Following Neurology recommendation Status post lumbar puncture Started on ceftriaxone, ampicillin, Acyclovir and vancomycin Neuro check q.[address] head today 09/19 negative Will hold methylprednisolone dysphagia: failed swallow. NG placed. MBS performed today and will be on mention moist diet. Will leave NG and tube feeds as he is today Plan Hypernatremia free water flushes added. Monitor BMP At the request of , she wanted to transfer the [facility] for continuity of care. Awaiting transfer to [facility] Subjective Date/time seen: 09/25/24 14:59 Interval history: No overnight events. No new complaints. More alert and awake. Following commands. Underwent MBS today and passed swallow evaluation. NG in place. Review of Systems Review of Systems: All systems reviewed & are unremarkable except as noted in HPI and below Exam Narrative: Patient is comfortable, slurred speech mild confusion patient repeats often HEENT: eyes are clear and none icteric NG in place LUNGS:CTA HEART: RR S1S2 ABD: BS+, Soft and nontender Lower extremities: no edema SKIN: nonjaundiced Neuro: grossly intact. Generalized weakness but moves all extremities follow commands Objective Data Vital Signs Vital Signs: Vital Signs - 24 hr 09/24/24 16:00 09/24/24 16:00 09/24/24 16:00 Temperature 97.5 F L Pulse Rate 96 86 Respiratory Rate 16 Blood Pressure 156/88 H Pulse Oximetry 99 100 Oxygen Delivery Nasal Cannula Oxygen Flow Rate 3 Fraction of Inspired Oxygen 09/24/24 18:00 09/24/24 19:54 09/24/24 20:00 Temperature 97.5 F L Pulse Rate 93 98 Respiratory Rate 16 Blood Pressure 150/94 H Pulse Oximetry 98 99 Oxygen Delivery Nasal Cannula Oxygen Flow Rate 2 Fraction of Inspired Oxygen 09/24/24 20:00 09/24/24 21:27 09/24/24 22:00 Temperature Pulse Rate 99 100 117 H Respiratory Rate 20 Blood Pressure Pulse Oximetry Oxygen Delivery Oxygen Flow Rate Fraction of Inspired Oxygen 09/24/24 23:55 09/25/24 00:00 09/25/24 00:00 Temperature 97.8 F Pulse Rate 97 89 Respiratory Rate 16 Blood Pressure 158/97 H Pulse Oximetry 97 96 Oxygen Delivery Nasal Cannula Oxygen Flow Rate 1 Fraction of Inspired Oxygen 09/25/24 01:38 09/25/24 02:00 09/25/24 04:00 Temperature Pulse Rate 104 H 107 H Respiratory Rate 20 Blood Pressure Pulse Oximetry 99 Oxygen Delivery Nasal Cannula Oxygen Flow Rate 1 Fraction of Inspired Oxygen 09/25/24 04:00 09/25/24 04:00 09/25/24 06:00 Temperature 98.0 F Pulse Rate 97 95 78 Respiratory Rate 18 Blood Pressure 160/81 H Pulse Oximetry 100 Oxygen Delivery Oxygen Flow Rate Fraction of Inspired Oxygen 09/25/24 07:32 09/25/24 07:32 09/25/24 07:40 Temperature Pulse Rate 100 98 Respiratory Rate 24 H 24 H Blood Pressure Pulse Oximetry 98 Oxygen Delivery Nasal Cannula Oxygen Flow Rate 1 Fraction of Inspired Oxygen 09/25/24 07:40 09/25/24 08:00 09/25/24 10:00 Temperature 97.8 F Pulse Rate 102 H 102 H 102 H Respiratory Rate 22 H Blood Pressure 175/103 H Pulse Oximetry 99 Oxygen Delivery Oxygen Flow Rate Fraction of Inspired Oxygen 09/25/24 11:49 09/25/24 14:02 09/25/24 14:02 Temperature 97.6 F Pulse Rate 106 H 100 Respiratory Rate 26 H 20 Blood Pressure 135/80 Pulse Oximetry 98 100 Oxygen Delivery Nasal Cannula Oxygen Flow Rate 2 Fraction of Inspired Oxygen 09/25/24 14:09 Temperature Pulse Rate 101 H Respiratory Rate 20 Blood Pressure Pulse Oximetry Oxygen Delivery Oxygen Flow Rate Fraction of Inspired Oxygen Intake/Output Intake/Output: Intake & Output 09/22/24 09/23/24 09/24/24 09/25/24 23:59 23:59 23:59 23:59 Intake Total 1268 768 500 409 Output Total 3325 2000 3600 1800 [facility] [phone] Meds/Results Medications: Active Medications Generic Name Dose Route Start Last Admin Trade Name Freq PRN Reason Stop Dose Admin Acetaminophen 650 mg 09/10/24 00:24 09/14/24 05:16 Acetaminophen 325 Mg Tablet PO 650 mg Q4H PRN Administration Mild Pain (1-3) or Fever Albuterol/Ipratropium 3 ml 09/19/24 20:00 09/25/24 14:02 Ipratropium 0.5 Mg/Albuterol Sulfate 2.5 Mg Ampul.Neb 3 Ml INHALATION 3 ml Q6HRT PJ Administration Aspirin 81 mg 09/15/24 09:00 09/25/24 08:59 Aspirin 81 Mg Enteric Tablet PO Not Given QAM PJ Atorvastatin Calcium 40 mg 09/15/24 09:00 09/25/24 08:59 Atorvastatin 40 Mg Tablet PO Not Given DAILY PJ Dextrose 12.5 gm 09/10/24 09:20 Dextrose 50% 25 Gm/50 Ml Syringe IV PUSH PRN PRN Hypoglycemia Protocol Dorzolamide/Timolol 1 drop 09/13/24 09:40 09/25/24 10:15 Dorzolamide/Timolol Ophth Sarah 10 Ml Bottle EACH EYE 1 drop Q12HR PJ Administration Enoxaparin Sodium 30 mg 09/11/24 09:00 09/18/24 09:42 Enoxaparin 30 Mg/0.3 Ml Syringe SUB-Q 30 mg DAILY PJ Administration Glucagon 1 mg 09/10/24 09:20 Glucagon For Inj 1 Mg Vial IM PRN PRN Hypoglycemia Protocol Glucose 15 gm 09/10/24 09:20 Glucose Oral Gel 15 Gm Of Glucse In 37.5 Gm Tube PO PRN PRN Hypoglycemia Protocol Hydralazine HCl 10 mg 09/22/24 11:30 09/25/24 08:43 Hydralazine Hcl 20 Mg/Ml Vial IV PUSH 10 mg Q6HR PRN Administration Blood Pressure - High Dextrose 1,000 mls @ 100 mls/hr 09/10/24 09:20 Dextrose 5% 1,000 Ml IVPB PRN PRN Hypoglycemia Protocol Ceftriaxone Sodium 2 gm in 100 mls @ 200 mls/hr 09/18/24 12:45 09/25/24 10:14 Rocephin 2 Gm/Ns 100 Ml IVPB 10/01/24 21:29 200 mls/hr Q12HR PJ Administration Ampicillin Sodium 2 gm in 100 mls @ 200 mls/hr 09/18/24 14:00 09/25/24 13:25 Ampicillin 2 Gm/Ns 100 Ml IVPB 10/02/24 06:29 200 mls/hr Q8HR PJ Administration Acyclovir Sodium 900 mg/ 268 mls @ 249.625 mls/hr 09/18/24 18:00 09/24/24 17:21 Dextrose IVPB 10/08/24 19:05 250 mls/hr Q24H PJ Administration Insulin Aspart 4 - 8 units 06/12/25 00:00 09/25/24 13:04 Insulin Aspart (*Bkc) 100 Units/Ml SUB-Q 4 units Q6HR PJ Administration Protocol Methylprednisolone Sodium Succinate 40 mg 09/19/24 06:05 09/22/24 11:27 Methylprednisolone Sod Succ 40 Mg Vial IV PUSH 40 mg Q6HR PJ Administration Mirtazapine 7.5 mg 09/13/24 09:50 09/14/24 09:00 Mirtazapine 7.5 Mg Tablet PO 7.5 mg DAILY PJ Administration Ondansetron HCl 4 mg 09/10/24 00:24 09/10/24 13:19 Ondansetron Inj 4 Mg/2 Ml Vial IV PUSH 4 mg Q4H PRN Administration Nausea Pantoprazole Sodium 40 mg 09/11/24 09:00 09/25/24 08:59 Pantoprazole 40 Mg Tablet PO Not Given QAM PJ Sodium Chloride 20 ml 09/11/24 08:00 Central Line Flush IV PUSH PRN PRN after blood draws Radiology Results: ITS Impressions Chest/Abdomen/Pelvis CT 09/09/24 21:59 IMPRESSION: CHEST: 1. Right pleural effusion. 2. No other definite acute cardiopulmonary pathology seen. 3. Slightly dilated esophagus which may indicate reflux esophagitis. ABDOMEN/PELVIS: 1. No evidence of appendicitis, diverticulitis or intestinal obstruction. 2. Bilateral renal cysts with small density in the right kidney lower pole. Follow-up advised. 3. Bilateral fat containing inguinal hernias. Small fat-containing umbilical hernia. Venous Doppler Study 09/11/24 10:07 IMPRESSION: 1: No lower extremity deep venous thrombosis. Chest CT 09/15/24 05:40 Impression: [id number] bilateral pleural effusions with probable minimal interstitial edema and minimal bibasilar atelectatic change. Carotid Doppler Study 09/15/24 05:43 Impression: Mildly elevated velocity in the right internal carotid artery suggests moderate (50-69%) stenosis, though noted significant plaque clearly evident. Antegrade flow in the bilateral vertebral arteries. Note: The methodology used is an indirect measurement validated against a direct method (such as the NASCET criteria) that compares diameters at the stenosis to the distal ICA. Brain MRI 09/15/24 15:43 IMPRESSION: 1. 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 No acute intracranial process. 2. Age-related changes including mild diffuse volume loss and mild scattered nonspecific white matter T2 hyperintensity consistent with chronic small vessel ischemic disease. Chest/Abdomen CT 09/16/24 13:52 IMPRESSION: 1. Unchanged small bilateral posterior layering pleural effusions with dependent atelectasis in both lungs. No pulmonary edema or pneumonia in the aerated portions of the lungs. Head CT 09/19/24 16:37 IMPRESSION: No acute intracranial findings. Lumbar Puncture Fluoroscopy 09/19/24 17:48 IMPRESSION: 1. Successful fluoro-guided lumbar puncture with normal opening pressure of 18 cm water which yielded only 2.5 mm of clear CSF. Abdomen X-Ray 09/24/24 06:30 Impression: NG tube in satisfactory position. Modified Barium Swallow 09/25/24 09:44 IMPRESSION: Pharyngeal dysphagia with laryngeal penetration with thin liquids but without aspiration. Please correlate with speech pathologist findings and specific feeding recommendations. Chest X-Ray 09/25/24 10:16 IMPRESSION: Right basilar atelectasis versus pneumonia. Minimal left pleural effusion. Labs Labs: Laboratory Results - last 24 hr 09/24/24 09/24/24 09/24/24 18:15 22:56 23:43 WBC RBC Hgb Hct MCV MCH MCHC RDW Plt Count MPV Immature Gran % (Auto) Neut % (Auto) Lymph % (Auto) [place] % (Auto) Eos % (Auto) Baso % (Auto) Lymph # (Auto) [place] # (Auto) Eos # (Auto) Baso # (Auto) Abs Immat Gran (auto) Absolute Neuts (auto) Absolute Nucleated RBC Band Neutrophils % Nucleated RBC % Platelet Estimate Hypochromasia Anisocytosis Microcytosis Ovalocytes Schistocytes Puncture Site ABG pH ABG pCO2 ABG pO2 ABG PO2/FiO2 Ratio ABG HCO3 ABG O2 Saturation ABG O2 Content ABG Base Excess A-a Gradient Oxyhemoglobin Total Hemoglobin O2 Delivery Device O2 Liters/Min FiO2 Sodium Potassium Chloride Carbon Dioxide Anion Gap BUN Creatinine Estim Creat Clear Calc Estimated GFR Glucose POC Capillary Glucose 287 H 194 H Calcium Phosphorus Magnesium Total Bilirubin AST ALT Alkaline Phosphatase Total Protein Albumin Random Vancomycin 20.7 H 09/25/24 09/25/24 09/25/24 04:10 10:20 11:49 WBC 16.0 H RBC 4.13 L Hgb 10.2 L Hct 34.8 L MCV 84.3 MCH 24.7 L MCHC 29.3 L RDW 17.6 H Plt Count 632 H MPV 9.7 Immature Gran % (Auto) 2.0 H Neut % (Auto) 76.1 H Lymph % (Auto) 9.4 L [place] % (Auto) 12.0 H Eos % (Auto) 0.3 Baso % (Auto) 0.2 Lymph # (Auto) 1.51 [place] # (Auto) 1.9 H Eos # (Auto) 0.1 Baso # (Auto) 0.0 Abs Immat Gran (auto) 0.32 H Absolute Neuts (auto) 12.2 H Absolute Nucleated RBC 0.200 H Band Neutrophils % Not Reportable Nucleated RBC % 1.2 H Platelet Estimate Increased Hypochromasia 1+ Anisocytosis 1+ Microcytosis 1+ Ovalocytes 1+ Schistocytes None seen Puncture Site Left radial ABG pH 7.481 H ABG pCO2 45.3 H ABG pO2 84.8 ABG PO2/FiO2 Ratio 3.03 ABG HCO3 33.1 H ABG O2 Saturation 96.9 ABG O2 Content 15.6 L ABG Base Excess 8.6 A-a Gradient 61.4 Oxyhemoglobin 95.8 Total Hemoglobin 11.5 L O2 Delivery Device Nasal cannula O2 Liters/Min 2.0 FiO2 28 Sodium 149 H Potassium 2.9 L Chloride 104 Carbon Dioxide 35 H Anion Gap 10 BUN 69 H Creatinine 2.40 H Estim Creat Clear Calc 22 Estimated GFR 26 L Glucose 239 H POC Capillary Glucose 250 H Calcium 8.3 L Phosphorus 3.3 Magnesium 1.6 Total Bilirubin 0.4 AST 45 ALT 19 Alkaline Phosphatase 153 H Total Protein 5.7 L Albumin 3.3 L Random Vancomycin
[2024-09-25 15:05] LABS: Anion Gap 9 mmol/L (4-12); Blood Urea Nitrogen 62 mg/dL (9-20); Calcium 8.5 mg/dL (8.4-10.2); Carbon Dioxide 35 mmol/L (22-30); Chloride 104 mmol/L (98-107); Estimated CRCL calculation 26 ml/min; Estimated Glomerular Filt Rate 32; Glucose 243 mg/dL (65-110); Sodium 148 mmol/L (137-145)
[2024-09-25 15:11] LABS: Potassium 2.8 mmol/L (3.4-5.0)
--- NOTE | 2024-09-25 17:21 | REHSTMBS ---
Assessment and note entered by Maeve Garcia, CASE THERAPIST Modified Barium Swallow Evaluation Feeding Type Recommended Oral Food Consistency Minced and Moist, Level 5 Liquid Consistency Thin (0) Treatment Recommendations Effortful Swallow,Laryngeal Elevation Exercise,Lip Strengthening Exercise,Tongue Base Exercise ST Clinical Summary The patient is an 83 yr old male referred for a MBS secondary to noted concerns for aspiration at bedside swallow evaluation. The patient was viewed in a lateral position and presented trials of 5cc /tsp thin liquid barium, cup trials mildly thick liquid barium, pudding mixed with barium paste, and cracker coated with barium paste. Oral Phase symptoms included: decreased labial seal and loss of liquid for tsp amounts thin liquid barium secondary to reduced labial closure and reduced oral sensation. Trials of mildly thick barium liquid, pudding mixed with barium paste and cracker coated with barium paste were viewed to have timely oral transit. Pharyngeal Phase Symptoms included laryngeal penetration during swallow initiation with 5cc thin liquid barium due to reduced laryngeal elevation. Trace amounts of barium was viewed to enter the airway above the vocal folds and were ejected with the completion of the swallow. When presented pudding mixed with barium paste, and mildly thick liquid barium via cup trace vallecula residual was viewed after the swallow secondary to reduced lingual pressure and cleared with completion of a repeat dry swallow. Recommend: 1. Mince Moist Diet Level 5, 2. Mildly thick liquid level 2 3. Small bites and Drinks, 4. Upright for meals 5. Slow Rate of intake 6. Repeat swallow. 7. No Straw
--- NOTE | 2024-09-25 17:23 | PCSTNOTE ---
Please refer to the Modified Barium Swallow Evaluation in the EMR. The patient is an 83 yr old male referred for a MBS secondary to noted concerns for aspiration at bedside swallow evaluation. The patient was viewed in a lateral position and presented trials of 5cc/tsp thin liquid barium, cup trials mildly thick liquid barium, pudding mixed with barium paste, and cracker coated with barium paste. Oral Phase symptoms included: decreased labial seal and loss of liquid for tsp amounts thin liquid barium secondary to reduced labial closure and reduced oral sensation. Trials of mildly thick barium liquid, pudding mixed with barium paste and cracker coated with barium paste were viewed to have timely oral transit. Pharyngeal Phase Symptoms included laryngeal penetration during swallow initiation with 5cc thin liquid barium due to reduced laryngeal elevation. Trace amounts of barium was viewed to enter the airway above the vocal folds and were ejected with the completion of the swallow. When presented pudding mixed with barium paste, and mildly thick liquid barium via cup trace vallecula residual was viewed after the swallow secondary to reduced lingual pressure and cleared with completion of a repeat dry swallow. Recommend: 1. Mince Moist Diet Level 5, 2. Mildly thick liquid level 2 3. Small bites and Drinks, 4. Upright for meals 5. Slow Rate of intake 6. Repeat swallow. 7. No Straw
[2024-09-25 17:31] LABS: Glucose Point of Care 213 mg/dl (65-105)
[2024-09-25] MEDS: ACYCLOVIR SODIUM IVPB 900 MG in DEXTROSE 5% IN WATER 250 ML 250 MG IVPB (18:25)
[2024-09-25 23:07] LABS: Glucose Point of Care 225 mg/dl (65-105)
[2024-09-26] VITALS (16 sets, daily range): BP systolic 100–144; BP diastolic 67–86; PULSE 69–104; RESP 12–22; TEMP 36.4; O2SAT 94–99
[2024-09-26] MEDS: IPRATROPIUM 0.5 MG/ALBUTEROL SULFATE 2.5 MG AMPUL.NEB 3 ML INHALATION ×4 (02:16→22:22)
[2024-09-26 04:26] LABS: Basophils Percent Auto 0.2 % (0.2-1.2); Eosinophils Absolute Auto 0.2 K/mm3 (0-0.3); Eosinophils Percent Auto 1.1 % (0-4.4); Hematocrit 32.3 % (42.0-52.0); Hemoglobin 9.6 g/dL (14.0-18.0); Immature Granulocyte Absolute 0.34 K/mm3 (0.00-0.031); Immature Granulocyte Percent A 1.9 % (0-0.5); Lymphocytes Absolute Auto 1.82 K/mm3 (0.9-3.2); Lymphocytes Percent Auto 10.3 % (18.3-44.2); Mean Corpuscular HGB Conc 29.7 g/dl (32-36); Mean Corpuscular Hemoglobin 25.1 pg (26-34); Mean Corpuscular Volume 84.3 fl (80-100); Mean Platelet Volume 9.8 fl (7.4-10.4); Monocytes Absolute Auto 1.7 K/mm3 (0.1-0.6); Monocytes Percent Auto 9.5 % (2.6-8.5); Neutrophils Absolute Auto 13.6 K/mm3 (1.3-6.7); Nucleated Red Blood Cells Perc 2.3 % (0.0-0.2); Platelet Count Result 618 k/mm3 (150-375); Red Blood Count 3.83 M/mm3 (4.6-6.20); Red Cell Distribution Width 17.7 % (11.5-14.5); White Blood Count 17.7 K/mm3 (4.5-10.0)
[2024-09-26 04:51] LABS: Alanine Aminotransferase 19 U/L (6-50); Albumin Level 3.3 g/dL (3.5-5.1); Alkaline Phosphatase 145 U/L (38-126); Anion Gap 8 mmol/L (4-12); Aspartate Amino Transferase 36 U/L (17-59); Bilirubin,Total 0.4 mg/dL (0.2-1.3); Blood Urea Nitrogen 55 mg/dL (9-20); Calcium 8.4 mg/dL (8.4-10.2); Carbon Dioxide 34 mmol/L (22-30); Chloride 104 mmol/L (98-107); Estimated CRCL calculation 33 ml/min; Estimated Glomerular Filt Rate 41; Glucose 224 mg/dL (65-110); Magnesium 1.5 mg/dL (1.6-2.3); Phosphorus 2.3 mg/dL (2.5-4.5); Potassium 3.4 mmol/L (3.4-5.0); Sodium 146 mmol/L (137-145); Total Protein 5.7 g/dL (6.3-8.2)
[2024-09-26 05:05] LABS: Anisocytosis 1+; Hypochromasia 1+; Ovalocytes 1+; Platelet Estimate Increased (Adequate)
[2024-09-26 05:06] LABS: Schistocytes None Seen; Stomatocytes 1+; Target Cells 1+
[2024-09-26] MEDS: INSULIN ASPART (*BKC) 100 UNITS/ML SUB-Q ×2 (05:18→11:57)
[2024-09-26] MEDS: AMPICILLIN 2 GM/NS 100 ML 2 GM/100 ML BAG IVPB ×4 (05:30→23:41)
[2024-09-26] MEDS: PANTOPRAZOLE 40 MG TABLET PO (08:23)
[2024-09-26] MEDS: ASPIRIN 81 MG ENTERIC TABLET PO (08:23)
[2024-09-26] MEDS: ATORVASTATIN 40 MG TABLET PO (08:23)
[2024-09-26] MEDS: cefTRIAXone 2 GM/NS 100 ML 2 GM/100 ML BAG IVPB ×2 (08:24→20:04)
[2024-09-26] MEDS: POTASSIUM PHOS/SODIUM PHOS 250 MG TABLET FEED TUBE (08:24)
[2024-09-26] MEDS: DORZOLAMIDE/TIMOLOL OPHTH SOL 10 ML BOTTLE 1 DROP EACH EYE ×2 (08:25→20:01)
[2024-09-26] MEDS: MAGNESIUM SULF 2 GM/WATER 50ML 2 GM/50 ML BAG IVPB (08:39)
--- NOTE | 2024-09-26 11:51 | PM.PNNEP ---
Progress Note: A&P Assessment and Plan (1) Acute kidney injury: Code(s): N17.9 - Acute kidney failure, unspecified Status: Acute Assessment and Plan: improvement noted (if not back to baseline) admission creatinine was close to baseline (2.37mg/dl) appears to have peaked/plateaued at 3.70mg/dl suspect multifactorial etiology: hypotension/shock on admission sepsis/infection insensible losses (high fevers on admission) prerenal factors (poor oral/fluid intake prior to admission) SARAH-I and chlorthalidone use prior to admission other (?) evaluation to date: CT A/P x 2 without evidence of obstruction urine electrolytes non-prerenal urine eosinophils negative CPK okay evidence of proteinuria reasonable urine output noted follow trend repeat labs and UOP (2) Stage 4 chronic kidney disease: Code(s): N18.4 - Chronic kidney disease, stage 4 (severe) Status: Chronic Assessment and Plan: baseline creatinine runs ~ 1.9 - 2.3mg/dl since 2021 however, has fluctuated to extremes with recent admissions/hospitalizations at [facility] in the last couple of months... outpatient labs since 2024 show creatinine seems to be running closer to 2.2 - 2.7mg/dl last outpatient creatinine was 2.66mg/dl on 07/18/24 discharge creatinine from August 2024 hospitalization was 2.99mg/dl baseline CKD is secondary to HTN, diabetes, vascular disease, and age-related change follows with [facility] (Dr. Lin Guerrero) (3) Febrile illness: Code(s): R50.9 - Fever, unspecified Status: Acute Assessment and Plan: as noted on presenation evaluation to date noted: UA was not reflective of UTI CT C/A/P without contrast demonstrating right pleural effusion, slightly dilated esophagus, bilateral renal cyst, bilateral fat containing inguinal hernias and small fat containing umbilical hernia blood cultures (from 09/09 and 09/12) with no growth to date viral swan for COVID/RSV/influenza negative venous duplex negative for DVTs TTE with no significant findings last CXR with new opacities of the right lower lung zone which could represent atelectasis or pneumonia s/p lumbar puncture and CSF showed elevated elevated WBC and protein elevated CRP and WBC noted on empiric antibiotic therapy (to cover for pneumoina and meningitis) continue supportive therapy (4) Slurred speech: Code(s): R47.81 - Slurred speech Status: Acute Assessment and Plan: apparently noted on 09/14/24 evaluation noted: Brain MRI -- small old lacunar infarct at the right subinsular white matter; no acute intracranial process; age-related changes including mild diffuse volume loss and mild scattered nonspecific white matter T2 hyperintensity consistent with chronic small vessel ischemic disease Echocardiogram (08/30) -- moderate aortic stenosis Carotid Doppler -- mildly elevated velocity in the right internal carotid artery suggests moderate (50-69%) stenosis, though noted significant plaque clearly evident; antegrade flow in the bilateral vertebral arteries repeat CT of head (09/19) -- negative LP studies noted (aee #3) on antibiotic therapy for possible meningitis follow mental status and neuro checks (5) Chronic obstructive pulmonary disease: Code(s): J44.9 - Chronic obstructive pulmonary disease, unspecified Status: Acute Assessment and Plan: continue nebulizer treatments PRN on home Spiriva supplemental oxygen as needed night time BiPAP therapy (6) A-fib: Code(s): I48.91 - Unspecified atrial fibrillation Status: Chronic Assessment and Plan: known history rate control strategy was on carvedilol at home resume as blood presssure allows not on anticoagulation at home due to history of bleeding gastric ulcer. (7) Hypertension: Code(s): I10 - Essential (primary) hypertension Status: Chronic Assessment and Plan: BP initially on hold due given hypotension on presentation was on coreg, lisinopril and chlorthalidone at home... resume as clinical course dictated follow trend of hemodynamics (8) Type 2 diabetes mellitus: Code(s): E11.9 - Type 2 diabetes mellitus without complications Status: Chronic Assessment and Plan: follow accu-cheks glycemic control per hospitalist Not much else to add -- will continue to follow from a distance. Subjective Date/time seen: 09/26/24 11:51 Interval history: Follow-up for acute kidney injury/acute renal failure on chronic kidney disease. Renal function/creatinine continues to improve at this time as noted by trend of labs with excellent urine output as well; s/p MBS yesterday and passed so diet being slowly advanced at this time; mentation appears to be slowly improving in the last 24 - 48 hours; no apparent distress voiced when seen. Exam Narrative: General: elderly and somewhat ill-appearing male in NAD Heart: normal S1 and S2; no rub Lungs: coarse breath sounds Abdomen: soft, nontender, nondistended, positive bowel sounds Extremities: no cyanosis or clubbing; no edema Skin: warm and intact Objective Data Vital Signs Vital Signs: Vital Signs Temp Pulse Resp BP Pulse Ox O2 Del Method O2 Flow Rate 09/26/24 11:50 98 12 130/67 99 09/26/24 10:00 82 09/26/24 09:04 93 20 09/26/24 08:54 89 20 09/26/24 08:54 94 Room Air 09/26/24 08:00 97 09/26/24 08:00 96 16 134/74 98 09/26/24 05:56 97 09/26/24 04:00 97.6 F 98 22 H 144/86 H 99 09/26/24 04:00 98 Room Air 09/26/24 04:00 97 09/26/24 02:17 95 16 09/26/24 02:00 100 09/26/24 00:00 104 H 09/25/24 23:47 100 Nasal Cannula 1 09/25/24 23:30 97.5 F L 103 H 20 105/76 100 09/25/24 22:00 85 09/25/24 21:20 103 H 20 09/25/24 21:11 106 H 20 09/25/24 21:11 98 Nasal Cannula 1 09/25/24 20:00 114 H 09/25/24 20:00 98 Nasal Cannula 1 09/25/24 20:00 97.4 F L 120 H 20 152/95 H 99 Intake/Output Intake/Output: Intake & Output 09/23/24 09/24/24 09/25/24 09/26/24 23:59 23:59 23:59 23:59 Intake Total 395 500 9440 1890 Output Total 1999 0626 3800 [id number] [facility] [phone] Meds/Results Medications: Active Medications Generic Name Dose Route Start Last Admin Trade Name Freq PRN Reason Stop Dose Admin Acetaminophen 650 mg 09/10/24 00:24 09/14/24 05:16 Acetaminophen 325 Mg Tablet PO 650 mg Q4H PRN Administration Mild Pain (1-3) or Fever Albuterol 2 puff 09/26/24 11:30 Albuterol Sulfate (*Sp) Aerosol 1 Puff INHALATION QID PRN shortness of breath or wheezing Albuterol/Ipratropium 3 ml 09/19/24 20:00 09/26/24 14:59 Ipratropium 0.5 Mg/Albuterol Sulfate 2.5 Mg Ampul.Neb 3 Ml INHALATION 3 ml Q6HRT PJ Administration Aspirin 81 mg 09/15/24 09:00 09/26/24 08:23 Aspirin 81 Mg Enteric Tablet PO 81 mg QAM PJ Administration Atorvastatin Calcium 40 mg 09/15/24 09:00 09/26/24 08:23 Atorvastatin 40 Mg Tablet PO 40 mg DAILY PJ Administration Carvedilol 12.5 mg 09/26/24 18:00 09/26/24 18:01 Carvedilol 12.5 Mg Tablet PO 12.5 mg Q12H PJ Administration Chlorthalidone 25 mg 09/27/24 09:00 Chlorthalidone 25 Mg Tablet PO DAILY PJ Dextrose 12.5 gm 09/10/24 09:20 Dextrose 50% 25 Gm/50 Ml Syringe IV PUSH PRN PRN Hypoglycemia Protocol Dorzolamide/Timolol 1 drop 09/13/24 09:40 09/26/24 08:25 Dorzolamide/Timolol Ophth Sarah 10 Ml Bottle EACH EYE 1 drop Q12HR PJ Administration Enoxaparin Sodium 30 mg 09/11/24 09:00 09/18/24 09:42 Enoxaparin 30 Mg/0.3 Ml Syringe SUB-Q 30 mg DAILY PJ Administration Glucagon 1 mg 09/10/24 09:20 Glucagon For Inj 1 Mg Vial IM PRN PRN Hypoglycemia Protocol Glucose 15 gm 09/10/24 09:20 Glucose Oral Gel 15 Gm Of Glucse In 37.5 Gm Tube PO PRN PRN Hypoglycemia Protocol Hydralazine HCl 10 mg 09/22/24 11:30 09/25/24 08:43 Hydralazine Hcl 20 Mg/Ml Vial IV PUSH 10 mg Q6HR PRN Administration Blood Pressure - High Dextrose 1,000 mls @ 100 mls/hr 09/10/24 09:20 Dextrose 5% 1,000 Ml IVPB PRN PRN Hypoglycemia Protocol Ceftriaxone Sodium 2 gm in 100 mls @ 200 mls/hr 09/18/24 12:45 09/26/24 08:24 Rocephin 2 Gm/Ns 100 Ml IVPB 10/01/24 21:29 200 mls/hr Q12HR PJ Administration Ampicillin Sodium 2 gm in 100 mls @ 200 mls/hr 09/26/24 13:30 09/26/24 18:00 Ampicillin 2 Gm/Ns 100 Ml IVPB 10/02/24 06:29 200 mls/hr Q6HR PJ Administration Acyclovir Sodium 880 mg/ 267.6 mls @ 250 mls/hr 09/27/24 00:30 Dextrose IVPB 10/09/24 10:05 Q12HR [facility] Insulin Aspart 4 - 8 units 09/21/24 00:00 09/26/24 18:08 Insulin Aspart (*Bkc) 100 Units/Ml SUB-Q Not Given Q6HR [facility] Protocol Insulin Glargine 20 units 09/26/24 21:00 Insulin Glargine (*Bkc) 100 Units/Ml SUB-Q QHS [facility] Insulin Glargine 10 units 09/26/24 21:00 Insulin Glargine (*Bkc) 100 Units/Ml SUB-Q HS [facility] Lisinopril 40 mg 09/27/24 09:00 Lisinopril 20 Mg Tablet PO DAILY [facility] Ondansetron HCl 4 mg 09/10/24 00:24 09/10/24 13:19 Ondansetron Inj 4 Mg/2 Ml Vial IV PUSH 4 mg Q4H PRN Administration Nausea Ondansetron HCl 4 mg 09/26/24 11:49 Ondansetron Hcl Odt 4 Mg Tablet PO Q8H PRN Nausea Pantoprazole Sodium 40 mg 09/27/24 09:00 Pantoprazole 40 Mg Tablet PO DAILY [facility] Sitagliptin Phosphate 25 mg 09/27/24 09:00 Sitagliptin Phosphate 25 Mg Tablet PO DAILY [facility] Sodium Chloride 20 ml 09/11/24 08:00 Central Line Flush IV PUSH PRN PRN after blood draws Radiology Results: ITS Impressions Chest/Abdomen/Pelvis CT 09/09/24 21:59 IMPRESSION: CHEST: 1. Right pleural effusion. 2. No other definite acute cardiopulmonary pathology seen. 3. Slightly dilated esophagus which may indicate reflux esophagitis. ABDOMEN/PELVIS: 1. No evidence of appendicitis, diverticulitis or intestinal obstruction. 2. Bilateral renal cysts with small density in the right kidney lower pole. Follow-up advised. 3. Bilateral fat containing inguinal hernias. Small fat-containing umbilical hernia. Venous Doppler Study 09/11/24 10:07 IMPRESSION: 1: No lower extremity deep venous thrombosis. Chest CT 09/15/24 05:40 Impression: [id number] bilateral pleural effusions with probable minimal interstitial edema and minimal bibasilar atelectatic change. Carotid Doppler Study 09/15/24 05:43 Impression: Mildly elevated velocity in the right internal carotid artery suggests moderate (50-69%) stenosis, though noted significant plaque clearly evident. Antegrade flow in the bilateral vertebral arteries. Note: The methodology used is an indirect measurement validated against a direct method (such as the NASCET criteria) that compares diameters at the stenosis to the distal ICA. Brain MRI 09/15/24 15:43 IMPRESSION: 1. 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 No acute intracranial process. 2. Age-related changes including mild diffuse volume loss and mild scattered nonspecific white matter T2 hyperintensity consistent with chronic small vessel ischemic disease. Chest/Abdomen CT 09/16/24 13:52 IMPRESSION: 1. Unchanged small bilateral posterior layering pleural effusions with dependent atelectasis in both lungs. No pulmonary edema or pneumonia in the aerated portions of the lungs. Head CT 09/19/24 16:37 IMPRESSION: No acute intracranial findings. Lumbar Puncture Fluoroscopy 09/19/24 17:48 IMPRESSION: 1. Successful fluoro-guided lumbar puncture with normal opening pressure of 18 cm water which yielded only 2.5 mm of clear CSF. Abdomen X-Ray 09/24/24 06:30 Impression: NG tube in satisfactory position. Modified Barium Swallow 09/25/24 09:44 IMPRESSION: Pharyngeal dysphagia with laryngeal penetration with thin liquids but without aspiration. Please correlate with speech pathologist findings and specific feeding recommendations. Chest X-Ray 09/25/24 10:16 IMPRESSION: Right basilar atelectasis versus pneumonia. Minimal left pleural effusion. Labs Labs: Laboratory Tests 09/26/24 04:19 09/26/24 04:19 Calcium 8.4 Phosphorus 2.3 L Magnesium 1.5 L Total Bilirubin 0.4 AST 36 ALT 19 Alkaline Phosphatase 145 H Total Protein 5.7 L Albumin 3.3 L
--- NOTE | 2024-09-26 11:56 | PCNFU ---
Nutrition Follow-Up Complete: Unintentional weight loss related to poor appetite and intake as evidenced by pt report and charted intake Goal:PO intake 50% or greater of meals and supplements Pt progressing slowly to goal Pt current nutrition is Minced and moist level 5, level 2 midlly thick liquids, Ensure Enlive BID. Nutrition recommendation: encourage po intake Last recorded weight is 88.6 kg. Bowel Motility: No BM recorded at this time Labs Reviewed: Hgb:9.6, HCT:32.3, NA:146, BUN:55, Glu:224, M.5 (low) Phos: 2.3 (low) Meds Noted: novolog, protonix, lovenox, solumedrol, remeron Skin: WNL Additional Notes: Pt passed MBS yesterday, diet started, pt tolerating diet. NG tube has been pulled and tube feeding stopped. Encourage po intake of meals and supplements. Monitor intake, wt, labs. Follow up in 3 days.
[2024-09-26 12:07] LABS: Glucose Point of Care 247 mg/dl (65-105)
--- NOTE | 2024-09-26 14:44 | PM.IMPN ---
Progress Note: A&P Assessment and Plan (1) Febrile illness: Code(s): R50.9 - Fever, unspecified Status: Acute Assessment and Plan: 09/09: Patient presented with fevers, weakness, hypotension -UA was not reflective of UTI -CT Ch/A/P without contrast demonstrating right pleural effusion, slightly dilated esophagus, bilateral renal cyst,. Bilateral fat containing inguinal hernias and small fat containing umbilical hernia. -09/09: BCx NGTD MRSA nasal swab negative. COVID, influenza and RSV PCR negative. Started on cefepime and vancomycin (09/09) but vanco stopped on 09/11. Venous duplex negative for DVT. CXR with new opacities of the right lower lung zone which could represent atelectasis or pneumonia with small right pleural effusion. Repeat BCx 09/12 NGTD CRP 8 -> 27. WBC higher at 12K. But fever curve better. Patient feels better. Continue Cefepime for now. add flagyl for anaerobic coverage 09/14/24. recheck mrsa positive. will add linezolid TTE with no signifciant findings. Hx of aspiration PNA so will have speech therapy evaluate. Consider BERNA to exclude endocarditis but felt unlikely with negative BCx. does not meet's Carnes's criteria. on ceftriaxone,ampicillin ,vancomycin and acyclovir due to possible meningitis Lactic acid is normal CRP and ESR is elevated. Possible source of infection UTI s/p Lumbar puncture and CSF showed elevated elevated WBC and protein continue above Anti-infectives as ordered monitor To complete antibiotic course 2 weeks and antiviral 3 weeks. He will need to remain hospitalized until this antibiotic course is complete. Date of conclusion of acyclovir 10/09/2024 Date of conclude on ampicillin 10/02/2024 Date of conclusion of ceftriaxone 10/01/2024 (2) Sepsis: Code(s): A41.9 - Sepsis, unspecified organism Status: Acute Assessment and Plan: Patient was hypotensive in the ER, received 30 cc/kg IV fluids and central line was inserted Levophed started but able to be weaned off Blood pressures stable Continue antibiotics as above (3) Chronic kidney disease, stage 3: Code(s): N18.30 - Chronic kidney disease, stage 3 unspecified Status: Acute Assessment and Plan: Patient with history of CKD (baseline 2.50-3.26) On admission creatinine was 2.37. -patient did diurese well as he was volume overloaded and congested -received albumin -urine output has been adequate Cr worsened during the hospital stay suggesting GABRIELA. Peaked to 3.6 now stable and improving -continue to monitor renal function, electrolytes and urine output Nephrology consulted and board (4) Chronic obstructive pulmonary disease: Code(s): J44.9 - Chronic obstructive pulmonary disease, unspecified Status: Acute Assessment and Plan: No wheezing appreciated. Continue neb treatments. Continue home Spiriva now on 3 liters oxygen conitnue nighttime BiPAP BiPAP has been tapered off. Did have metabolic acidosis with uncompensated respiratory acidosis Repeat ABG stable (5) A-fib: Code(s): I48.91 - Unspecified atrial fibrillation Status: Acute Assessment and Plan: History of AFib -on carvedilol at home -will hold for now as patient's BP still soft -heart rate is controlled for now Not on anticoagulation at home due to history of bleeding gastric ulcer. His last EGD 3-4 years ago (6) Hypertension: Code(s): I10 - Essential (primary) hypertension Status: Chronic Assessment and Plan: Patient on Coreg, lisinopril and chlorthalidone at home. titrate home meds with clinical course (7) Type 2 diabetes mellitus: Code(s): E11.9 - Type 2 diabetes mellitus without complications Status: Chronic Assessment and Plan: Glucose remains well controlled. Continue AccuCheks covering with sliding scale. Hypoglycemia protocol available as needed. Resume home lantus and aspart when able (8) Renal mass: Code(s): N28.89 - Other specified disorders of kidney and ureter Status: Acute Assessment and Plan: Incidental finding by CT showing a left upper pole cyst measuring 2.9 cm. Exophytic cyst is seen in the right kidney midpole measuring 3 cm. Tiny hypodense lesion seen in the right kidney lower pole most likely hemorrhagic cyst. Tiny mass cannot be excluded. Follow-up advised. awaiting transfer to [facility] for oncology eval and treat (9) Slurred speech: Code(s): R47.81 - Slurred speech Status: Acute Assessment and Plan: Noticed some slurred speech 09/14/24 Brain MRI:1. 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 No acute intracranial process. 2. Age-related changes including mild diffuse volume loss and mild scattered nonspecific white matter T2 hyperintensity consistent with chronic small vessel ischemic disease. Echocardiogram was performed on 08/30/2024 which shows moderate aortic stenosis Carotid Doppler:Mildly elevated velocity in the right internal carotid artery suggests moderate (50-69%) stenosis, though noted significant plaque clearly evident. Antegrade flow in the bilateral vertebral arteries. Following Neurology recommendation Status post lumbar puncture Started on ceftriaxone, ampicillin, Acyclovir and vancomycin Neuro check q.[address] head today 09/19 negative Will discontinue methylprednisolone dysphagia: failed swallow. NG placed. MBS repeat performed 09/25/2024 and will be on minced and moist diet. Will remove NG today. Encourage oral diet Plan Hypernatremia free water flushes added. Monitor BMP which is improving At the request of , she wanted to transfer the [facility] for continuity of care. Still Awaiting transfer to [facility] as beds not available Subjective Date/time seen: 09/26/24 14:44 Interval history: No overnight events. Does not like thickened water. Remains afebrile. Labs reviewed. Review of Systems Review of Systems: All systems reviewed & are unremarkable except as noted in HPI and below Exam Narrative: Patient is comfortable, more awake and alert HEENT: eyes are clear and none icteric NG in place LUNGS:CTA HEART: RR S1S2 ABD: BS+, Soft and nontender Lower extremities: no edema SKIN: nonjaundiced Neuro: grossly intact. Generalized weakness but moves all extremities follow commands Objective Data Vital Signs Vital Signs: Vital Signs - 24 hr 09/25/24 16:00 09/25/24 16:00 09/25/24 16:00 Temperature 97.5 F L Pulse Rate 103 H 115 H Respiratory Rate 24 H Blood Pressure 159/83 H Pulse Oximetry 98 94 Oxygen Delivery Nasal Cannula Oxygen Flow Rate 1 09/25/24 18:00 09/25/24 20:00 09/25/24 20:00 Temperature 97.4 F L Pulse Rate 115 H 120 H Respiratory Rate 20 Blood Pressure 152/95 H Pulse Oximetry 99 98 Oxygen Delivery Nasal Cannula Oxygen Flow Rate 1 09/25/24 20:00 09/25/24 21:11 09/25/24 21:11 Temperature Pulse Rate 114 H 106 H Respiratory Rate 20 Blood Pressure Pulse Oximetry 98 Oxygen Delivery Nasal Cannula Oxygen Flow Rate 1 09/25/24 21:20 09/25/24 22:00 09/25/24 23:30 Temperature 97.5 F L Pulse Rate 103 H 85 103 H Respiratory Rate 20 20 Blood Pressure 105/76 Pulse Oximetry 100 Oxygen Delivery Oxygen Flow Rate 09/25/24 23:47 09/26/24 00:00 09/26/24 02:00 Temperature Pulse Rate 104 H 100 Respiratory Rate Blood Pressure Pulse Oximetry 100 Oxygen Delivery Nasal Cannula Oxygen Flow Rate 1 09/26/24 02:17 09/26/24 04:00 09/26/24 04:00 Temperature Pulse Rate 95 97 Respiratory Rate 16 Blood Pressure Pulse Oximetry 98 Oxygen Delivery Room Air Oxygen Flow Rate 09/26/24 04:00 09/26/24 05:56 09/26/24 08:00 Temperature 97.6 F Pulse Rate 98 97 96 Respiratory Rate 22 H 16 Blood Pressure 144/86 H 134/74 Pulse Oximetry 99 98 Oxygen Delivery Oxygen Flow Rate 09/26/24 08:00 09/26/24 08:54 09/26/24 08:54 Temperature Pulse Rate 97 89 Respiratory Rate 20 Blood Pressure Pulse Oximetry 94 Oxygen Delivery Room Air Oxygen Flow Rate 09/26/24 09:04 09/26/24 10:00 09/26/24 12:00 Temperature Pulse Rate 93 82 98 Respiratory Rate 20 12 Blood Pressure 130/67 Pulse Oximetry 99 Oxygen Delivery Oxygen Flow Rate 09/26/24 12:15 Temperature Pulse Rate Respiratory Rate Blood Pressure Pulse Oximetry Oxygen Delivery Room Air Oxygen Flow Rate Intake/Output Intake/Output: Intake & Output 09/23/24 09/24/24 09/25/24 09/26/24 23:59 23:59 23:59 23:59 Intake Total 599 081 9681 880 Output Total 1999 3600 3800 1150 [facility] [phone] Meds/Results Medications: Active Medications Generic Name Dose Route Start Last Admin Trade Name Freq PRN Reason Stop Dose Admin Acetaminophen 650 mg 09/10/24 00:24 09/14/24 05:16 Acetaminophen 325 Mg Tablet PO 650 mg Q4H PRN Administration Mild Pain (1-3) or Fever Albuterol 2 puff 09/26/24 11:30 Albuterol Sulfate (*Sp) Aerosol 1 Puff INHALATION QID PRN shortness of breath or wheezing Albuterol/Ipratropium 3 ml 09/19/24 20:00 09/26/24 08:53 Ipratropium 0.5 Mg/Albuterol Sulfate 2.5 Mg Ampul.Neb 3 Ml INHALATION 3 ml Q6HRT PJ Administration Aspirin 81 mg 09/15/24 09:00 09/26/24 08:23 Aspirin 81 Mg Enteric Tablet PO 81 mg QAM PJ Administration Atorvastatin Calcium 40 mg 09/15/24 09:00 09/26/24 08:23 Atorvastatin 40 Mg Tablet PO 40 mg DAILY PJ Administration Carvedilol 12.5 mg 09/26/24 18:00 Carvedilol 12.5 Mg Tablet PO Q12H PJ Chlorthalidone 25 mg 09/27/24 09:00 Chlorthalidone 25 Mg Tablet PO DAILY PJ Dextrose 12.5 gm 09/10/24 09:20 Dextrose 50% 25 Gm/50 Ml Syringe IV PUSH PRN PRN Hypoglycemia Protocol Dorzolamide/Timolol 1 drop 09/13/24 09:40 09/26/24 08:25 Dorzolamide/Timolol Ophth Sarah 10 Ml Bottle EACH EYE 1 drop Q12HR PJ Administration Enoxaparin Sodium 30 mg 09/11/24 09:00 09/18/24 09:42 Enoxaparin 30 Mg/0.3 Ml Syringe SUB-Q 30 mg DAILY JP Administration Glucagon 1 mg 09/10/24 09:20 Glucagon For Inj 1 Mg Vial IM PRN PRN Hypoglycemia Protocol Glucose 15 gm 09/10/24 09:20 Glucose Oral Gel 15 Gm Of Glucse In 37.5 Gm Tube PO PRN PRN Hypoglycemia Protocol Hydralazine HCl 10 mg 09/22/24 11:30 09/25/24 08:43 Hydralazine Hcl 20 Mg/Ml Vial IV PUSH 10 mg Q6HR PRN Administration Blood Pressure - High Dextrose 1,000 mls @ 100 mls/hr 09/10/24 09:20 Dextrose 5% 1,000 Ml IVPB PRN PRN Hypoglycemia Protocol Ceftriaxone Sodium 2 gm in 100 mls @ 200 mls/hr 09/18/24 12:45 09/26/24 08:24 Rocephin 2 Gm/Ns 100 Ml IVPB 10/01/24 21:29 200 mls/hr Q12HR PJ Administration Acyclovir Sodium 900 mg/ 268 mls @ 249.625 mls/hr 09/18/24 18:00 09/25/24 19:30 Dextrose IVPB 09/26/24 15:00 Infused Q24H [facility] Infusion Ampicillin Sodium 2 gm in 100 mls @ 200 mls/hr 09/26/24 13:30 09/26/24 14:22 Ampicillin 2 Gm/Ns 100 Ml IVPB 10/02/24 06:29 200 mls/hr Q6HR PJ Administration Acyclovir Sodium 880 mg/ 267.6 mls @ 250 mls/hr 09/27/24 00:30 Dextrose IVPB 10/09/24 10:05 Q12HR [facility] Insulin Aspart 4 - 8 units 09/21/24 00:00 09/26/24 11:57 Insulin Aspart (*Bkc) 100 Units/Ml SUB-Q 4 units Q6HR [facility] Administration Protocol Insulin Glargine 20 units 09/26/24 21:00 Insulin Glargine (*Bkc) 100 Units/Ml SUB-Q QHS [facility] Lisinopril 40 mg 09/27/24 09:00 Lisinopril 20 Mg Tablet PO DAILY [facility] Ondansetron HCl 4 mg 09/10/24 00:24 09/10/24 13:19 Ondansetron Inj 4 Mg/2 Ml Vial IV PUSH 4 mg Q4H PRN Administration Nausea Ondansetron HCl 4 mg 09/26/24 11:49 Ondansetron Hcl Odt 4 Mg Tablet PO Q8H PRN Nausea Pantoprazole Sodium 40 mg 09/27/24 09:00 Pantoprazole 40 Mg Tablet PO DAILY [facility] Sitagliptin Phosphate 25 mg 09/27/24 09:00 Sitagliptin Phosphate 25 Mg Tablet PO DAILY [facility] Sodium Chloride 20 ml 09/11/24 08:00 Central Line Flush IV PUSH PRN PRN after blood draws Radiology Results: ITS Impressions Chest/Abdomen/Pelvis CT 09/09/24 21:59 IMPRESSION: CHEST: 1. Right pleural effusion. 2. No other definite acute cardiopulmonary pathology seen. 3. Slightly dilated esophagus which may indicate reflux esophagitis. ABDOMEN/PELVIS: 1. No evidence of appendicitis, diverticulitis or intestinal obstruction. 2. Bilateral renal cysts with small density in the right kidney lower pole. Follow-up advised. 3. Bilateral fat containing inguinal hernias. Small fat-containing umbilical hernia. Venous Doppler Study 09/11/24 10:07 IMPRESSION: 1: No lower extremity deep venous thrombosis. Chest CT 09/15/24 05:40 Impression: [id number] bilateral pleural effusions with probable minimal interstitial edema and minimal bibasilar atelectatic change. Carotid Doppler Study 09/15/24 05:43 Impression: Mildly elevated velocity in the right internal carotid artery suggests moderate (50-69%) stenosis, though noted significant plaque clearly evident. Antegrade flow in the bilateral vertebral arteries. Note: The methodology used is an indirect measurement validated against a direct method (such as the NASCET criteria) that compares diameters at the stenosis to the distal ICA. Brain MRI 09/15/24 15:43 IMPRESSION: 1. 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 No acute intracranial process. 2. Age-related changes including mild diffuse volume loss and mild scattered nonspecific white matter T2 hyperintensity consistent with chronic small vessel ischemic disease. Chest/Abdomen CT 09/16/24 13:52 IMPRESSION: 1. Unchanged small bilateral posterior layering pleural effusions with dependent atelectasis in both lungs. No pulmonary edema or pneumonia in the aerated portions of the lungs. Head CT 09/19/24 16:37 IMPRESSION: No acute intracranial findings. Lumbar Puncture Fluoroscopy 09/19/24 17:48 IMPRESSION: 1. Successful fluoro-guided lumbar puncture with normal opening pressure of 18 cm water which yielded only 2.5 mm of clear CSF. Abdomen X-Ray 09/24/24 06:30 Impression: NG tube in satisfactory position. Modified Barium Swallow 09/25/24 09:44 IMPRESSION: Pharyngeal dysphagia with laryngeal penetration with thin liquids but without aspiration. Please correlate with speech pathologist findings and specific feeding recommendations. Chest X-Ray 09/25/24 10:16 IMPRESSION: Right basilar atelectasis versus pneumonia. Minimal left pleural effusion. Labs Labs: Laboratory Results - last 24 hr 09/25/24 09/25/24 09/25/24 14:41 17:29 23:03 WBC RBC Hgb Hct MCV MCH MCHC RDW Plt Count MPV Immature Gran % (Auto) Neut % (Auto) Lymph % (Auto) [place] % (Auto) Eos % (Auto) Baso % (Auto) Lymph # (Auto) [place] # (Auto) Eos # (Auto) Baso # (Auto) Abs Immat Gran (auto) Absolute Neuts (auto) Absolute Nucleated RBC Band Neutrophils % Nucleated RBC % Platelet Estimate Hypochromasia Anisocytosis Target Cells Ovalocytes Stomatocytes Schistocytes Sodium 148 H Potassium 2.8 L* Chloride 104 Carbon Dioxide 35 H Anion Gap 9 BUN 62 H Creatinine 2.03 H Estim Creat Clear Calc 26 Estimated GFR 32 L Glucose 243 H POC Capillary Glucose 213 H 225 H Calcium 8.5 Phosphorus Magnesium Total Bilirubin AST ALT Alkaline Phosphatase Total Protein Albumin 09/26/24 09/26/24 04:19 11:34 WBC 17.7 H RBC 3.83 L Hgb 9.6 L Hct 32.3 L MCV 84.3 MCH 25.1 L MCHC 29.7 L RDW 17.7 H Plt Count 618 H MPV 9.8 Immature Gran % (Auto) 1.9 H Neut % (Auto) 77.0 H Lymph % (Auto) 10.3 L [place] % (Auto) 9.5 H Eos % (Auto) 1.1 Baso % (Auto) 0.2 Lymph # (Auto) 1.82 [place] # (Auto) 1.7 H Eos # (Auto) 0.2 Baso # (Auto) 0.0 Abs Immat Gran (auto) 0.34 H Absolute Neuts (auto) 13.6 H Absolute Nucleated RBC 0.400 H Band Neutrophils % Not Reportable Nucleated RBC % 2.3 H Platelet Estimate Increased Hypochromasia 1+ Anisocytosis 1+ Target Cells 1+ Ovalocytes 1+ Stomatocytes 1+ Schistocytes None seen Sodium 146 H Potassium 3.4 Chloride 104 Carbon Dioxide 34 H Anion Gap 8 BUN 55 H Creatinine 1.61 H Estim Creat Clear Calc 33 Estimated GFR 41 L Glucose 224 H POC Capillary Glucose 247 H Calcium 8.4 Phosphorus 2.3 L Magnesium 1.5 L Total Bilirubin 0.4 AST 36 ALT 19 Alkaline Phosphatase 145 H Total Protein 5.7 L Albumin 3.3 L
[2024-09-26 14:48] LABS: Erythropoietin (EPO). 32.5 mIU/mL (2.6-18.5)
[2024-09-26] MEDS: ACYCLOVIR SODIUM IVPB 900 MG in DEXTROSE 5% IN WATER 250 ML 250 MG IVPB (15:01)
[2024-09-26] MEDS: carvediloL 12.5 MG TABLET PO (18:01)
[2024-09-26 18:11] LABS: Glucose Point of Care 189 mg/dl (65-105)
[2024-09-26 20:04] LABS: Glucose Point of Care 241 mg/dl (65-105)
[2024-09-26] MEDS: INSULIN GLARGINE (*BKC) 100 UNITS/ML 20 UNITS SUB-Q (20:04)
[2024-09-27] VITALS (12 sets, daily range): BP systolic 106–143; BP diastolic 55–78; PULSE 50–99; RESP 12–22; TEMP 36.1–36.7; O2SAT 95–100
[2024-09-27 00:02] LABS: Glucose Point of Care 248 mg/dl (65-105)
[2024-09-27] MEDS: INSULIN ASPART (*BKC) 100 UNITS/ML SUB-Q ×2 (00:03→12:09)
[2024-09-27] MEDS: IPRATROPIUM 0.5 MG/ALBUTEROL SULFATE 2.5 MG AMPUL.NEB 3 ML INHALATION ×4 (02:57→20:09)
[2024-09-27] MEDS: AMPICILLIN 2 GM/NS 100 ML 2 GM/100 ML BAG IVPB ×4 (05:26→23:32)
[2024-09-27] MEDS: carvediloL 12.5 MG TABLET PO ×2 (05:26→16:47)
[2024-09-27 05:33] LABS: Glucose Point of Care 146 mg/dl (65-105)
[2024-09-27 07:14] LABS: Basophils Percent Auto 0.1 % (0.2-1.2); Eosinophils Absolute Auto 0.5 K/mm3 (0-0.3); Eosinophils Percent Auto 3.5 % (0-4.4); Hematocrit 29.8 % (42.0-52.0); Hemoglobin 8.8 g/dL (14.0-18.0); Immature Granulocyte Percent A 2.1 % (0-0.5); Lymphocytes Absolute Auto 1.88 K/mm3 (0.9-3.2); Lymphocytes Percent Auto 13.4 % (18.3-44.2); Mean Corpuscular HGB Conc 29.5 g/dl (32-36); Mean Corpuscular Volume 84.7 fl (80-100); Mean Platelet Volume 10.1 fl (7.4-10.4); Monocytes Absolute Auto 1.6 K/mm3 (0.1-0.6); Monocytes Percent Auto 11.5 % (2.6-8.5); Neutrophils Absolute Auto 9.8 K/mm3 (1.3-6.7); Neutrophils Percent Auto 69.4 % (45.5-73.1); Nucleated Red Blood Cells Perc 2.1 % (0.0-0.2); Platelet Count Result 524 k/mm3 (150-375); Red Blood Count 3.52 M/mm3 (4.6-6.20); Red Cell Distribution Width 18.8 % (11.5-14.5)
[2024-09-27 07:39] LABS: Albumin Level 3.1 g/dL (3.5-5.1); Anion Gap 7 mmol/L (4-12); Blood Urea Nitrogen 44 mg/dL (9-20); Calcium 8.1 mg/dL (8.4-10.2); Carbon Dioxide 36 mmol/L (22-30); Chloride 102 mmol/L (98-107); Estimated CRCL calculation 34 ml/min; Estimated Glomerular Filt Rate 42; Glucose 124 mg/dL (65-110); Phosphorus 3.2 mg/dL (2.5-4.5); Potassium 3.3 mmol/L (3.4-5.0); Sodium 145 mmol/L (137-145)
[2024-09-27 07:48] LABS: Anisocytosis 1+; Hypochromasia 2+; Ovalocytes 1+; Platelet Estimate Increased (Adequate); Schistocytes None Seen; Tear Drop Cells 1+
--- NOTE | 2024-09-27 08:42 | PM.IMPN ---
Progress Note: A&P Assessment and Plan (1) Febrile illness: Code(s): R50.9 - Fever, unspecified Status: Acute Assessment and Plan: 09/09: Patient presented with fevers, weakness, hypotension -UA was not reflective of UTI -CT Ch/A/P without contrast demonstrating right pleural effusion, slightly dilated esophagus, bilateral renal cyst,. Bilateral fat containing inguinal hernias and small fat containing umbilical hernia. -09/09: BCx NGTD MRSA nasal swab negative. COVID, influenza and RSV PCR negative. Started on cefepime and vancomycin (09/09) but vanco stopped on 09/11. Venous duplex negative for DVT. CXR with new opacities of the right lower lung zone which could represent atelectasis or pneumonia with small right pleural effusion. Repeat BCx 09/12 NGTD CRP 8 -> 27. WBC higher at 12K. But fever curve better. Patient feels better. Continue Cefepime for now. add flagyl for anaerobic coverage 09/14/24. recheck mrsa positive. will add linezolid TTE with no signifciant findings. Hx of aspiration PNA so will have speech therapy evaluate. Consider BERNA to exclude endocarditis but felt unlikely with negative BCx. does not meet's Carnes's criteria. on ceftriaxone,ampicillin ,vancomycin and acyclovir due to possible meningitis Lactic acid is normal CRP and ESR is elevated. Possible source of infection UTI s/p Lumbar puncture and CSF showed elevated elevated WBC and protein continue above Anti-infectives as ordered monitor To complete antibiotic course 2 weeks and antiviral 3 weeks. He will need to remain hospitalized until this antibiotic course is complete. Date of conclusion of acyclovir 10/09/2024 Date of conclude on ampicillin 10/02/2024 Date of conclusion of ceftriaxone 10/01/2024 (2) Sepsis: Code(s): A41.9 - Sepsis, unspecified organism Status: Acute Assessment and Plan: Patient was hypotensive in the ER, received 30 cc/kg IV fluids and central line was inserted Levophed started but able to be weaned off Blood pressures stable Continue antibiotics as above (3) Chronic kidney disease, stage 3: Code(s): N18.30 - Chronic kidney disease, stage 3 unspecified Status: Acute Assessment and Plan: Patient with history of CKD (baseline 2.50-3.26) On admission creatinine was 2.37. -patient did diurese well as he was volume overloaded and congested -received albumin -urine output has been adequate Cr worsened during the hospital stay suggesting GABRIELA. Peaked to 3.6 now stable and improving -continue to monitor renal function, electrolytes and urine output Nephrology consulted and board (4) Chronic obstructive pulmonary disease: Code(s): J44.9 - Chronic obstructive pulmonary disease, unspecified Status: Acute Assessment and Plan: No wheezing appreciated. Continue neb treatments. Continue home Spiriva now on 3 liters oxygen conitnue nighttime BiPAP BiPAP has been tapered off. Did have metabolic acidosis with uncompensated respiratory acidosis Repeat ABG stable (5) A-fib: Code(s): I48.91 - Unspecified atrial fibrillation Status: Acute Assessment and Plan: History of AFib -on carvedilol at home -will hold for now as patient's BP still soft -heart rate is controlled for now Not on anticoagulation at home due to history of bleeding gastric ulcer. His last EGD 3-4 years ago (6) Hypertension: Code(s): I10 - Essential (primary) hypertension Status: Chronic Assessment and Plan: Patient on Coreg, lisinopril and chlorthalidone at home. titrate home meds with clinical course (7) Type 2 diabetes mellitus: Code(s): E11.9 - Type 2 diabetes mellitus without complications Status: Chronic Assessment and Plan: Glucose remains well controlled. Continue AccuCheks covering with sliding scale. Hypoglycemia protocol available as needed. Resume home lantus and aspart when able (8) Renal mass: Code(s): N28.89 - Other specified disorders of kidney and ureter Status: Acute Assessment and Plan: Incidental finding by CT showing a left upper pole cyst measuring 2.9 cm. Exophytic cyst is seen in the right kidney midpole measuring 3 cm. Tiny hypodense lesion seen in the right kidney lower pole most likely hemorrhagic cyst. Tiny mass cannot be excluded. Follow-up advised. awaiting transfer to [facility] for oncology eval and treat (9) Slurred speech: Code(s): R47.81 - Slurred speech Status: Acute Assessment and Plan: Noticed some slurred speech 09/14/24 Brain MRI:1. 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 No acute intracranial process. 2. Age-related changes including mild diffuse volume loss and mild scattered nonspecific white matter T2 hyperintensity consistent with chronic small vessel ischemic disease. Echocardiogram was performed on 08/30/2024 which shows moderate aortic stenosis Carotid Doppler:Mildly elevated velocity in the right internal carotid artery suggests moderate (50-69%) stenosis, though noted significant plaque clearly evident. Antegrade flow in the bilateral vertebral arteries. Following Neurology recommendation Status post lumbar puncture Started on ceftriaxone, ampicillin, Acyclovir and vancomycin Neuro check q.[address] head today 09/19 negative Will discontinue methylprednisolone dysphagia: failed swallow. NG placed. MBS repeat performed 09/25/2024 and will be on minced and moist diet. Removed NG today. Encourage oral diet Plan Hypernatremia free water flushes added. Monitor BMP which is improving At the request of , she wanted to transfer the [facility] for continuity of care. Still Awaiting transfer to [facility] as beds not available Subjective Date/time seen: 09/27/24 08:42 Interval history: No overnight events. Sat on the chair for 3 hours yesterday. More awake and alert Review of Systems Review of Systems: All systems reviewed & are unremarkable except as noted in HPI and below Exam Narrative: Patient is comfortable, more awake and alert HEENT: eyes are clear and none icteric NG in place LUNGS:CTA HEART: RR S1S2 ABD: BS+, Soft and nontender Lower extremities: no edema SKIN: nonjaundiced Neuro: grossly intact. Generalized weakness but moves all extremities follow commands Objective Data Vital Signs Vital Signs: Vital Signs - 24 hr 09/26/24 08:54 09/26/24 08:54 09/26/24 09:04 Temperature Pulse Rate 89 93 Respiratory Rate 20 20 Blood Pressure Pulse Oximetry 94 Oxygen Delivery Room Air Fraction of Inspired Oxygen 09/26/24 10:00 09/26/24 12:00 09/26/24 12:15 Temperature Pulse Rate 82 98 Respiratory Rate 12 Blood Pressure 130/67 Pulse Oximetry 99 Oxygen Delivery Room Air Fraction of Inspired Oxygen 09/26/24 14:59 09/26/24 15:08 09/26/24 16:00 Temperature Pulse Rate 88 86 93 Respiratory Rate 20 20 20 Blood Pressure 115/79 Pulse Oximetry 97 Oxygen Delivery Fraction of Inspired Oxygen 09/26/24 20:00 09/26/24 20:00 09/26/24 22:22 Temperature 97.6 F Pulse Rate 90 69 Respiratory Rate 22 H 16 Blood Pressure 100/70 Pulse Oximetry 97 99 Oxygen Delivery Room Air Fraction of Inspired Oxygen 09/26/24 22:26 09/27/24 00:00 09/27/24 02:57 Temperature 97.6 F Pulse Rate 69 94 96 Respiratory Rate 16 22 H 14 Blood Pressure 126/66 Pulse Oximetry 99 100 Oxygen Delivery Room Air Fraction of Inspired Oxygen 21 09/27/24 08:06 09/27/24 08:08 09/27/24 08:15 Temperature Pulse Rate 50 L 50 L 80 Respiratory Rate 12 12 12 Blood Pressure Pulse Oximetry 95 Oxygen Delivery Room Air Fraction of Inspired Oxygen Intake/Output Intake/Output: Intake & Output 09/24/24 09/25/24 09/26/24 09/27/24 23:59 23:59 23:59 23:59 Intake Total 768 1557 2090 340 Output Total 3600 3800 1150 Balance -4032 -9159 940 340 Meds/Results Medications: Active Medications Generic Name Dose Route Start Last Admin Trade Name Freq PRN Reason Stop Dose Admin Acetaminophen 650 mg 09/10/24 00:24 09/14/24 05:16 Acetaminophen 325 Mg Tablet PO 650 mg Q4H PRN Administration Mild Pain (1-3) or Fever Albuterol 2 puff 09/26/24 11:30 Albuterol Sulfate (*Sp) Aerosol 1 Puff INHALATION QID PRN shortness of breath or wheezing Albuterol/Ipratropium 3 ml 09/19/24 20:00 09/27/24 08:06 Ipratropium 0.5 Mg/Albuterol Sulfate 2.5 Mg Ampul.Neb 3 Ml INHALATION 3 ml Q6HRT PJ Administration Aspirin 81 mg 09/15/24 09:00 09/26/24 08:23 Aspirin 81 Mg Enteric Tablet PO 81 mg QAM PJ Administration Atorvastatin Calcium 40 mg 09/15/24 09:00 09/26/24 08:23 Atorvastatin 40 Mg Tablet PO 40 mg DAILY PJ Administration Carvedilol 12.5 mg 09/26/24 18:00 09/27/24 05:26 Carvedilol 12.5 Mg Tablet PO 12.5 mg Q12H PJ Administration Chlorthalidone 25 mg 09/27/24 09:00 Chlorthalidone 25 Mg Tablet PO DAILY [facility] Dextrose 12.5 gm 09/10/24 09:20 Dextrose 50% 25 Gm/50 Ml Syringe IV PUSH PRN PRN Hypoglycemia Protocol Dorzolamide/Timolol 1 drop 09/13/24 09:40 09/26/24 20:01 Dorzolamide/Timolol Ophth Sarah 10 Ml Bottle EACH EYE 1 drop Q12HR PJ Administration Enoxaparin Sodium 40 mg 09/27/24 09:00 Enoxaparin 40 Mg/0.4 Ml Syringe SUB-Q DAILY PJ Glucagon 1 mg 09/10/24 09:20 Glucagon For Inj 1 Mg Vial IM PRN PRN Hypoglycemia Protocol Glucose 15 gm 09/10/24 09:20 Glucose Oral Gel 15 Gm Of Glucse In 37.5 Gm Tube PO PRN PRN Hypoglycemia Protocol Hydralazine HCl 10 mg 09/22/24 11:30 09/25/24 08:43 Hydralazine Hcl 20 Mg/Ml Vial IV PUSH 10 mg Q6HR PRN Administration Blood Pressure - High Dextrose 1,000 mls @ 100 mls/hr 09/10/24 09:20 Dextrose 5% 1,000 Ml IVPB PRN PRN Hypoglycemia Protocol Ceftriaxone Sodium 2 gm in 100 mls @ 200 mls/hr 09/18/24 12:45 09/26/24 20:04 Rocephin 2 Gm/Ns 100 Ml IVPB 10/01/24 21:29 200 mls/hr Q12HR PJ Administration Ampicillin Sodium 2 gm in 100 mls @ 200 mls/hr 09/26/24 13:30 09/27/24 05:26 Ampicillin 2 Gm/Ns 100 Ml IVPB 10/02/24 06:29 200 mls/hr Q6HR PJ Administration Acyclovir Sodium 880 mg/ 267.6 mls @ 250 mls/hr 09/27/24 00:30 09/27/24 00:53 Dextrose IVPB 10/09/24 10:05 250 mls/hr Q12HR PJ Administration Insulin Aspart 4 - 8 units 09/21/24 00:00 09/27/24 05:26 Insulin Aspart (*Bkc) 100 Units/Ml SUB-Q Not Given Q6HR PJ Protocol Insulin Glargine 20 units 09/26/24 21:00 09/26/24 20:04 Insulin Glargine (*Bkc) 100 Units/Ml SUB-Q 20 units QHS PJ Administration Lisinopril 40 mg 09/27/24 09:00 Lisinopril 20 Mg Tablet PO DAILY [facility] Ondansetron HCl 4 mg 09/10/24 00:24 09/10/24 13:19 Ondansetron Inj 4 Mg/2 Ml Vial IV PUSH 4 mg Q4H PRN Administration Nausea Ondansetron HCl 4 mg 09/26/24 11:49 Ondansetron Hcl Odt 4 Mg Tablet PO Q8H PRN Nausea Pantoprazole Sodium 40 mg 09/27/24 09:00 Pantoprazole 40 Mg Tablet PO DAILY [facility] Sitagliptin Phosphate 25 mg 09/27/24 09:00 Sitagliptin Phosphate 25 Mg Tablet PO DAILY [facility] Sodium Chloride 20 ml 09/11/24 08:00 Central Line Flush IV PUSH PRN PRN after blood draws Radiology Results: ITS Impressions Chest/Abdomen/Pelvis CT 09/09/24 21:59 IMPRESSION: CHEST: 1. Right pleural effusion. 2. No other definite acute cardiopulmonary pathology seen. 3. Slightly dilated esophagus which may indicate reflux esophagitis. ABDOMEN/PELVIS: 1. No evidence of appendicitis, diverticulitis or intestinal obstruction. 2. Bilateral renal cysts with small density in the right kidney lower pole. Follow-up advised. 3. Bilateral fat containing inguinal hernias. Small fat-containing umbilical hernia. Venous Doppler Study 09/11/24 10:07 IMPRESSION: 1: No lower extremity deep venous thrombosis. Chest CT 09/15/24 05:40 Impression: [id number] bilateral pleural effusions with probable minimal interstitial edema and minimal bibasilar atelectatic change. Carotid Doppler Study 09/15/24 05:43 Impression: Mildly elevated velocity in the right internal carotid artery suggests moderate (50-69%) stenosis, though noted significant plaque clearly evident. Antegrade flow in the bilateral vertebral arteries. Note: The methodology used is an indirect measurement validated against a direct method (such as the NASCET criteria) that compares diameters at the stenosis to the distal ICA. Brain MRI 09/15/24 15:43 IMPRESSION: 1. 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 No acute intracranial process. 2. Age-related changes including mild diffuse volume loss and mild scattered nonspecific white matter T2 hyperintensity consistent with chronic small vessel ischemic disease. Chest/Abdomen CT 09/16/24 13:52 IMPRESSION: 1. Unchanged small bilateral posterior layering pleural effusions with dependent atelectasis in both lungs. No pulmonary edema or pneumonia in the aerated portions of the lungs. Head CT 09/19/24 16:37 IMPRESSION: No acute intracranial findings. Lumbar Puncture Fluoroscopy 09/19/24 17:48 IMPRESSION: 1. Successful fluoro-guided lumbar puncture with normal opening pressure of 18 cm water which yielded only 2.5 mm of clear CSF. Abdomen X-Ray 09/24/24 06:30 Impression: NG tube in satisfactory position. Modified Barium Swallow 09/25/24 09:44 IMPRESSION: Pharyngeal dysphagia with laryngeal penetration with thin liquids but without aspiration. Please correlate with speech pathologist findings and specific feeding recommendations. Chest X-Ray 09/25/24 10:16 IMPRESSION: Right basilar atelectasis versus pneumonia. Minimal left pleural effusion. Labs Labs: Laboratory Results - last 24 hr 09/20/24 09/26/24 09/26/24 19:41 11:34 18:07 WBC RBC Hgb Hct MCV MCH MCHC RDW Plt Count MPV Immature Gran % (Auto) Neut % (Auto) Lymph % (Auto) [place] % (Auto) Eos % (Auto) Baso % (Auto) Lymph # (Auto) [place] # (Auto) Eos # (Auto) Baso # (Auto) Abs Immat Gran (auto) Absolute Neuts (auto) Absolute Nucleated RBC Band Neutrophils % Nucleated RBC % Platelet Estimate Hypochromasia Anisocytosis Tear Drop Cells Ovalocytes Schistocytes Sodium Potassium Chloride Carbon Dioxide Anion Gap BUN Creatinine Estim Creat Clear Calc Estimated GFR Glucose POC Capillary Glucose 247 H 189 H Calcium Phosphorus Erythropoietin 32.5 H Albumin 09/26/24 09/26/24 09/27/24 19:56 23:59 05:25 WBC RBC Hgb Hct MCV MCH MCHC RDW Plt Count MPV Immature Gran % (Auto) Neut % (Auto) Lymph % (Auto) [place] % (Auto) Eos % (Auto) Baso % (Auto) Lymph # (Auto) [place] # (Auto) Eos # (Auto) Baso # (Auto) Abs Immat Gran (auto) Absolute Neuts (auto) Absolute Nucleated RBC Band Neutrophils % Nucleated RBC % Platelet Estimate Hypochromasia Anisocytosis Tear Drop Cells Ovalocytes Schistocytes Sodium Potassium Chloride Carbon Dioxide Anion Gap BUN Creatinine Estim Creat Clear Calc Estimated GFR Glucose POC Capillary Glucose 241 H 248 H 146 H Calcium Phosphorus Erythropoietin Albumin 09/27/24 06:59 WBC 14.0 H RBC 3.52 L Hgb 8.8 L Hct 29.8 L MCV 84.7 MCH 25.0 L MCHC 29.5 L RDW 18.8 H Plt Count 524 H MPV 10.1 Immature Gran % (Auto) 2.1 H Neut % (Auto) 69.4 Lymph % (Auto) 13.4 L [place] % (Auto) 11.5 H Eos % (Auto) 3.5 Baso % (Auto) 0.1 L Lymph # (Auto) 1.88 Alcorn # (Auto) 1.6 H Eos # (Auto) 0.5 H Baso # (Auto) 0.0 Abs Immat Gran (auto) 0.30 H Absolute Neuts (auto) 9.8 H Absolute Nucleated RBC 0.290 H Band Neutrophils % Not Reportable Nucleated RBC % 2.1 H Platelet Estimate Increased Hypochromasia 2+ Anisocytosis 1+ Tear Drop Cells 1+ Ovalocytes 1+ Schistocytes None seen Sodium 145 Potassium 3.3 L Chloride 102 Carbon Dioxide 36 H Anion Gap 7 BUN 44 H D Creatinine 1.57 H Estim Creat Clear Calc 34 Estimated GFR 42 L Glucose 124 H POC Capillary Glucose Calcium 8.1 L Phosphorus 3.2 Erythropoietin Albumin 3.1 L
[2024-09-27] MEDS: cefTRIAXone 2 GM/NS 100 ML 2 GM/100 ML BAG IVPB ×2 (09:30→20:58)
[2024-09-27] MEDS: ENOXAPARIN 40 MG/0.4 ML SYRINGE SUB-Q (09:30)
[2024-09-27] MEDS: lisinopriL 20 MG TABLET 40 MG PO (09:31)
[2024-09-27] MEDS: ATORVASTATIN 40 MG TABLET PO (09:31)
[2024-09-27] MEDS: POTASSIUM CHLORIDE 20 MEQ ER TABLET 40 MEQ PO (09:31)
[2024-09-27] MEDS: DORZOLAMIDE/TIMOLOL OPHTH SOL 10 ML BOTTLE 1 DROP EACH EYE ×2 (09:31→21:55)
[2024-09-27] MEDS: SITagliptin PHOSPHATE 25 MG TABLET PO (09:31)
[2024-09-27] MEDS: PANTOPRAZOLE 40 MG TABLET PO (09:31)
[2024-09-27] MEDS: ASPIRIN 81 MG ENTERIC TABLET PO (09:31)
[2024-09-27] MEDS: CHLORTHALIDONE 25 MG TABLET PO (09:31)
--- NOTE | 2024-09-27 11:45 | PC.NURSE ---
This patient, David Wei, was received from [ ] on 09/27/24 at 1145. Patient/family oriented to unit policies and routines
[2024-09-27 12:08] LABS: Glucose Point of Care 211 mg/dl (65-105)
[2024-09-27 16:58] LABS: Glucose Point of Care 166 mg/dl (65-105)
[2024-09-27] MEDS: INSULIN GLARGINE (*BKC) 100 UNITS/ML 20 UNITS SUB-Q (20:58)
[2024-09-28] VITALS (13 sets, daily range): BP systolic 78–166; BP diastolic 44–52; PULSE 64–110; RESP 16–20; TEMP 36.4–36.8; O2SAT 95–98
[2024-09-28 00:18] LABS: Glucose Point of Care 215 mg/dl (65-105)
[2024-09-28] MEDS: INSULIN ASPART (*BKC) 100 UNITS/ML SUB-Q (00:22)
[2024-09-28] MEDS: IPRATROPIUM 0.5 MG/ALBUTEROL SULFATE 2.5 MG AMPUL.NEB 3 ML INHALATION ×4 (01:34→20:03)
[2024-09-28] MEDS: AMPICILLIN 2 GM/NS 100 ML 2 GM/100 ML BAG IVPB ×4 (05:56→23:02)
[2024-09-28 06:10] LABS: Basophils Percent Auto 0.1 % (0.2-1.2); Eosinophils Absolute Auto 0.8 K/mm3 (0-0.3); Hematocrit 27.9 % (42.0-52.0); Hemoglobin 8.1 g/dL (14.0-18.0); Immature Granulocyte Absolute 0.33 K/mm3 (0.00-0.031); Immature Granulocyte Percent A 2.1 % (0-0.5); Lymphocytes Absolute Auto 1.91 K/mm3 (0.9-3.2); Lymphocytes Percent Auto 12.3 % (18.3-44.2); Mean Corpuscular Hemoglobin 25.1 pg (26-34); Mean Corpuscular Volume 86.4 fl (80-100); Mean Platelet Volume 10.2 fl (7.4-10.4); Monocytes Absolute Auto 1.8 K/mm3 (0.1-0.6); Monocytes Percent Auto 11.8 % (2.6-8.5); Neutrophils Absolute Auto 10.7 K/mm3 (1.3-6.7); Neutrophils Percent Auto 68.7 % (45.5-73.1); Nucleated Red Blood Cells Perc 0.8 % (0.0-0.2); Platelet Count Result 504 k/mm3 (150-375); Red Blood Count 3.23 M/mm3 (4.6-6.20); Red Cell Distribution Width 19.7 % (11.5-14.5); White Blood Count 15.5 K/mm3 (4.5-10.0)
[2024-09-28] MEDS: carvediloL 12.5 MG TABLET PO ×2 (06:16→17:07)
[2024-09-28] MEDS: GLUCOSE ORAL GEL 15 GM OF GLUCSE IN 37.5 GM TUBE PO ×2 (06:20→06:49)
[2024-09-28 06:24] LABS: Alanine Aminotransferase 20 U/L (6-50); Albumin Level 2.8 g/dL (3.5-5.1); Alkaline Phosphatase 121 U/L (38-126); Anion Gap 6 mmol/L (4-12); Aspartate Amino Transferase 42 U/L (17-59); Bilirubin,Total 0.3 mg/dL (0.2-1.3); Blood Urea Nitrogen 44 mg/dL (9-20); Carbon Dioxide 33 mmol/L (22-30); Chloride 103 mmol/L (98-107); Estimated CRCL calculation 30 ml/min; Estimated Glomerular Filt Rate 37; Glucose 53 mg/dL (65-110); Magnesium 1.4 mg/dL (1.6-2.3); Sodium 142 mmol/L (137-145)
[2024-09-28 06:46] LABS: Glucose Point of Care 49 mg/dl (65-105)
[2024-09-28 06:46] LABS: Glucose Point of Care 57 mg/dl (65-105)
[2024-09-28 06:58] LABS: Anisocytosis 1+; Hypochromasia 2+; Ovalocytes 1+; Platelet Estimate Increased (Adequate); Schistocytes None Seen
[2024-09-28 07:04] LABS: Glucose Point of Care 78 mg/dl (65-105)
[2024-09-28] MEDS: cefTRIAXone 2 GM/NS 100 ML 2 GM/100 ML BAG IVPB ×2 (10:14→21:21)
[2024-09-28] MEDS: ENOXAPARIN 40 MG/0.4 ML SYRINGE SUB-Q (10:15)
[2024-09-28] MEDS: ATORVASTATIN 40 MG TABLET PO (10:15)
[2024-09-28] MEDS: SITagliptin PHOSPHATE 25 MG TABLET PO (10:15)
[2024-09-28] MEDS: ASPIRIN 81 MG ENTERIC TABLET PO (10:15)
[2024-09-28] MEDS: CHLORTHALIDONE 25 MG TABLET PO (10:15)
[2024-09-28] MEDS: PANTOPRAZOLE 40 MG TABLET PO (10:15)
[2024-09-28] MEDS: lisinopriL 20 MG TABLET 40 MG PO (10:15)
[2024-09-28] MEDS: DORZOLAMIDE/TIMOLOL OPHTH SOL 10 ML BOTTLE 1 DROP EACH EYE ×2 (10:16→20:14)
--- NOTE | 2024-09-28 11:44 | PM.IMPN ---
Progress Note: A&P Assessment and Plan (1) Febrile illness: Code(s): R50.9 - Fever, unspecified Status: Acute Assessment and Plan: 09/09: Patient presented with fevers, weakness, hypotension -UA was not reflective of UTI -CT Ch/A/P without contrast demonstrating right pleural effusion, slightly dilated esophagus, bilateral renal cyst,. Bilateral fat containing inguinal hernias and small fat containing umbilical hernia. -09/09: BCx NGTD MRSA nasal swab negative. COVID, influenza and RSV PCR negative. Started on cefepime and vancomycin (09/09) but vanco stopped on 09/11. Venous duplex negative for DVT. CXR with new opacities of the right lower lung zone which could represent atelectasis or pneumonia with small right pleural effusion. Repeat BCx 09/12 NGTD CRP 8 -> 27. WBC higher at 12K. But fever curve better. Patient feels better. Continue Cefepime for now. add flagyl for anaerobic coverage 09/14/24. recheck mrsa positive. will add linezolid TTE with no signifciant findings. Hx of aspiration PNA so will have speech therapy evaluate. Consider BERNA to exclude endocarditis but felt unlikely with negative BCx. does not meet's Carnes's criteria. on ceftriaxone,ampicillin ,vancomycin and acyclovir due to possible meningitis Lactic acid is normal CRP and ESR is elevated. Possible source of infection UTI s/p Lumbar puncture and CSF showed elevated elevated WBC and protein continue above Anti-infectives as ordered monitor To complete antibiotic course 2 weeks and antiviral 3 weeks. He will need to remain hospitalized until this antibiotic course is complete. Date of conclusion of acyclovir 10/09/2024 Date of conclude on ampicillin 10/02/2024 Date of conclusion of ceftriaxone 10/01/2024 (2) Sepsis: Code(s): A41.9 - Sepsis, unspecified organism Status: Acute Assessment and Plan: Patient was hypotensive in the ER, received 30 cc/kg IV fluids and central line was inserted Levophed started but able to be weaned off Blood pressures stable Continue antibiotics as above (3) Chronic kidney disease, stage 3: Code(s): N18.30 - Chronic kidney disease, stage 3 unspecified Status: Acute Assessment and Plan: Patient with history of CKD (baseline 2.50-3.26) On admission creatinine was 2.37. -patient did diurese well as he was volume overloaded and congested -received albumin -urine output has been adequate Cr worsened during the hospital stay suggesting GABRIELA. Peaked to 3.6 now stable and improving -continue to monitor renal function, electrolytes and urine output Nephrology consulted and board (4) Chronic obstructive pulmonary disease: Code(s): J44.9 - Chronic obstructive pulmonary disease, unspecified Status: Acute Assessment and Plan: No wheezing appreciated. Continue neb treatments. Continue home Spiriva now on 3 liters oxygen conitnue nighttime BiPAP BiPAP has been tapered off. Did have metabolic acidosis with uncompensated respiratory acidosis Repeat ABG stable (5) A-fib: Code(s): I48.91 - Unspecified atrial fibrillation Status: Acute Assessment and Plan: History of AFib -on carvedilol at home -will hold for now as patient's BP still soft -heart rate is controlled for now Not on anticoagulation at home due to history of bleeding gastric ulcer. His last EGD 3-4 years ago (6) Hypertension: Code(s): I10 - Essential (primary) hypertension Status: Chronic Assessment and Plan: Patient on Coreg, lisinopril and chlorthalidone at home. titrate home meds with clinical course (7) Type 2 diabetes mellitus: Code(s): E11.9 - Type 2 diabetes mellitus without complications Status: Chronic Assessment and Plan: Glucose remains well controlled. Continue AccuCheks covering with sliding scale. Hypoglycemia protocol available as needed. Resume home lantus and aspart when able Hypoglycemic this a.m. with hold Lantus (8) Renal mass: Code(s): N28.89 - Other specified disorders of kidney and ureter Status: Acute Assessment and Plan: Incidental finding by CT showing a left upper pole cyst measuring 2.9 cm. Exophytic cyst is seen in the right kidney midpole measuring 3 cm. Tiny hypodense lesion seen in the right kidney lower pole most likely hemorrhagic cyst. Tiny mass cannot be excluded. Follow-up advised. awaiting transfer to [facility] for oncology eval and treat (9) Slurred speech: Code(s): R47.81 - Slurred speech Status: Acute Assessment and Plan: Noticed some slurred speech 09/14/24 Brain MRI:1. 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 No acute intracranial process. 2. Age-related changes including mild diffuse volume loss and mild scattered nonspecific white matter T2 hyperintensity consistent with chronic small vessel ischemic disease. Echocardiogram was performed on 08/30/2024 which shows moderate aortic stenosis Carotid Doppler:Mildly elevated velocity in the right internal carotid artery suggests moderate (50-69%) stenosis, though noted significant plaque clearly evident. Antegrade flow in the bilateral vertebral arteries. Following Neurology recommendation Status post lumbar puncture Started on ceftriaxone, ampicillin, Acyclovir and vancomycin Neuro check q.[address] head 09/19 negative Will discontinue methylprednisolone dysphagia: failed swallow. NG placed. MBS repeat performed 09/25/2024 and will be on minced and moist diet. Removed NG today. Encourage oral diet Will repeat MBS has suggested by speech Plan Hypernatremia free water flushes added. Monitor BMP which is improving At the request of , she wanted to transfer the [facility] for continuity of care. Still Awaiting transfer to [facility] as beds not available Subjective Date/time seen: 09/28/24 11:44 Interval history: Overnight he became hypoglycemic. He denies any new complaint Except for tiredness. Labs reviewed. Review of Systems Review of Systems: All systems reviewed & are unremarkable except as noted in HPI and below Exam Narrative: Patient is comfortable, awake and alert HEENT: eyes are clear and none icteric NG in place LUNGS:CTA HEART: RR S1S2 ABD: BS+, Soft and nontender Lower extremities: no edema SKIN: nonjaundiced Neuro: grossly intact. Generalized weakness but moves all extremities follow commands Objective Data Vital Signs Vital Signs: Vital Signs - 24 hr 09/27/24 14:05 09/27/24 14:40 09/27/24 16:47 Temperature 98.1 F Pulse Rate 99 71 95 Respiratory Rate 16 14 Blood Pressure 107/57 L Pulse Oximetry 97 Oxygen Delivery 09/27/24 20:10 09/27/24 20:20 09/27/24 22:00 Temperature 98 F Pulse Rate 95 93 95 Respiratory Rate 18 16 16 Blood Pressure 106/55 L Pulse Oximetry 99 Oxygen Delivery 09/28/24 01:38 09/28/24 06:00 09/28/24 06:16 Temperature 98.2 F Pulse Rate 110 H 96 96 Respiratory Rate 16 16 Blood Pressure 166/52 H Pulse Oximetry 98 Oxygen Delivery 09/28/24 08:49 09/28/24 08:49 09/28/24 09:00 Temperature Pulse Rate 64 64 81 Respiratory Rate 20 20 20 Blood Pressure Pulse Oximetry 95 Oxygen Delivery Room Air Intake/Output Intake/Output: Intake & Output 09/25/24 09/26/24 09/27/24 09/28/24 23:59 23:59 23:59 23:59 Intake Total 1557 2190 2362.8 460 Output Total 3800 1150 150 700 Balance -2243 1040 2212.8 -240 Meds/Results Medications: Active Medications Generic Name Dose Route Start Last Admin Trade Name Freq PRN Reason Stop Dose Admin Acetaminophen 650 mg 09/10/24 00:24 09/14/24 05:16 Acetaminophen 325 Mg Tablet PO 650 mg Q4H PRN Administration Mild Pain (1-3) or Fever Albuterol 2 puff 09/26/24 11:30 Albuterol Sulfate (*Sp) Aerosol 1 Puff INHALATION QID PRN shortness of breath or wheezing Albuterol/Ipratropium 3 ml 09/19/24 20:00 09/28/24 08:49 Ipratropium 0.5 Mg/Albuterol Sulfate 2.5 Mg Ampul.Neb 3 Ml INHALATION 3 ml Q6HRT PJ Administration Aspirin 81 mg 09/15/24 09:00 09/28/24 10:15 Aspirin 81 Mg Enteric Tablet PO 81 mg QAM PJ Administration Atorvastatin Calcium 40 mg 09/15/24 09:00 09/28/24 10:15 Atorvastatin 40 Mg Tablet PO 40 mg DAILY PJ Administration Carvedilol 12.5 mg 09/26/24 18:00 09/28/24 06:16 Carvedilol 12.5 Mg Tablet PO 12.5 mg Q12H PJ Administration Chlorthalidone 25 mg 09/27/24 09:00 09/28/24 10:15 Chlorthalidone 25 Mg Tablet PO 25 mg DAILY PJ Administration Dextrose 12.5 gm 09/10/24 09:20 Dextrose 50% 25 Gm/50 Ml Syringe IV PUSH PRN PRN Hypoglycemia Protocol Dorzolamide/Timolol 1 drop 09/13/24 09:40 09/28/24 10:16 Dorzolamide/Timolol Ophth Sarah 10 Ml Bottle EACH EYE 1 drop Q12HR PJ Administration Enoxaparin Sodium 40 mg 09/27/24 09:00 09/28/24 10:15 Enoxaparin 40 Mg/0.4 Ml Syringe SUB-Q 40 mg DAILY PJ Administration Glucagon 1 mg 09/10/24 09:20 Glucagon For Inj 1 Mg Vial IM PRN PRN Hypoglycemia Protocol Glucose 15 gm 09/10/24 09:20 09/28/24 06:49 Glucose Oral Gel 15 Gm Of Glucse In 37.5 Gm Tube PO 15 gm PRN PRN Administration Hypoglycemia Protocol Hydralazine HCl 10 mg 09/22/24 11:30 09/25/24 08:43 Hydralazine Hcl 20 Mg/Ml Vial IV PUSH 10 mg Q6HR PRN Administration Blood Pressure - High Dextrose 1,000 mls @ 100 mls/hr 09/10/24 09:20 Dextrose 5% 1,000 Ml IVPB PRN PRN Hypoglycemia Protocol Ceftriaxone Sodium 2 gm in 100 mls @ 200 mls/hr 09/18/24 12:45 09/28/24 10:14 Rocephin 2 Gm/Ns 100 Ml IVPB 10/01/24 21:29 200 mls/hr Q12HR PJ Administration Ampicillin Sodium 2 gm in 100 mls @ 200 mls/hr 09/26/24 13:30 09/28/24 05:56 Ampicillin 2 Gm/Ns 100 Ml IVPB 10/02/24 06:29 200 mls/hr Q6HR PJ Administration Acyclovir Sodium 880 mg/ 267.6 mls @ 250 mls/hr 09/27/24 00:30 09/28/24 10:22 Dextrose IVPB 10/09/24 10:05 250 mls/hr Q12HR PJ Administration Insulin Aspart 4 - 8 units 09/28/24 12:00 Insulin Aspart (*Bkc) 100 Units/Ml SUB-Q TIDWM PJ Protocol Lisinopril 40 mg 09/27/24 09:00 09/28/24 10:15 Lisinopril 20 Mg Tablet PO 40 mg DAILY PJ Administration Ondansetron HCl 4 mg 09/10/24 00:24 09/10/24 13:19 Ondansetron Inj 4 Mg/2 Ml Vial IV PUSH 4 mg Q4H PRN Administration Nausea Ondansetron HCl 4 mg 09/26/24 11:49 Ondansetron Hcl Odt 4 Mg Tablet PO Q8H PRN Nausea Pantoprazole Sodium 40 mg 09/27/24 09:00 09/28/24 10:15 Pantoprazole 40 Mg Tablet PO 40 mg DAILY PJ Administration Sitagliptin Phosphate 25 mg 09/27/24 09:00 09/28/24 10:15 Sitagliptin Phosphate 25 Mg Tablet PO 25 mg DAILY PJ Administration Sodium Chloride 20 ml 09/11/24 08:00 Central Line Flush IV PUSH PRN PRN after blood draws Radiology Results: ITS Impressions Chest/Abdomen/Pelvis CT 09/09/24 21:59 IMPRESSION: CHEST: 1. Right pleural effusion. 2. No other definite acute cardiopulmonary pathology seen. 3. Slightly dilated esophagus which may indicate reflux esophagitis. ABDOMEN/PELVIS: 1. No evidence of appendicitis, diverticulitis or intestinal obstruction. 2. Bilateral renal cysts with small density in the right kidney lower pole. Follow-up advised. 3. Bilateral fat containing inguinal hernias. Small fat-containing umbilical hernia. Venous Doppler Study 09/11/24 10:07 IMPRESSION: 1: No lower extremity deep venous thrombosis. Chest CT 09/15/24 05:40 Impression: [id number] bilateral pleural effusions with probable minimal interstitial edema and minimal bibasilar atelectatic change. Carotid Doppler Study 09/15/24 05:43 Impression: Mildly elevated velocity in the right internal carotid artery suggests moderate (50-69%) stenosis, though noted significant plaque clearly evident. Antegrade flow in the bilateral vertebral arteries. Note: The methodology used is an indirect measurement validated against a direct method (such as the NASCET criteria) that compares diameters at the stenosis to the distal ICA. Brain MRI 09/15/24 15:43 IMPRESSION: 1. 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 No acute intracranial process. 2. Age-related changes including mild diffuse volume loss and mild scattered nonspecific white matter T2 hyperintensity consistent with chronic small vessel ischemic disease. Chest/Abdomen CT 09/16/24 13:52 IMPRESSION: 1. Unchanged small bilateral posterior layering pleural effusions with dependent atelectasis in both lungs. No pulmonary edema or pneumonia in the aerated portions of the lungs. Head CT 09/19/24 16:37 IMPRESSION: No acute intracranial findings. Lumbar Puncture Fluoroscopy 09/19/24 17:48 IMPRESSION: 1. Successful fluoro-guided lumbar puncture with normal opening pressure of 18 cm water which yielded only 2.5 mm of clear CSF. Abdomen X-Ray 09/24/24 06:30 Impression: NG tube in satisfactory position. Modified Barium Swallow 09/25/24 09:44 IMPRESSION: Pharyngeal dysphagia with laryngeal penetration with thin liquids but without aspiration. Please correlate with speech pathologist findings and specific feeding recommendations. Chest X-Ray 09/25/24 10:16 IMPRESSION: Right basilar atelectasis versus pneumonia. Minimal left pleural effusion. Labs Labs: Laboratory Results - last 24 hr 09/27/24 09/27/24 09/28/24 12:05 16:55 00:16 WBC RBC Hgb Hct MCV MCH MCHC RDW Plt Count MPV Immature Gran % (Auto) Neut % (Auto) Lymph % (Auto) [place] % (Auto) Eos % (Auto) Baso % (Auto) Lymph # (Auto) [place] # (Auto) Eos # (Auto) Baso # (Auto) Abs Immat Gran (auto) Absolute Neuts (auto) Absolute Nucleated RBC Band Neutrophils % Nucleated RBC % Platelet Estimate Hypochromasia Anisocytosis Ovalocytes Schistocytes Sodium Potassium Chloride Carbon Dioxide Anion Gap BUN Creatinine Estim Creat Clear Calc Estimated GFR Glucose POC Capillary Glucose 211 H 166 H 215 H Calcium Magnesium Total Bilirubin AST ALT Alkaline Phosphatase Total Protein Albumin 09/28/24 09/28/24 09/28/24 05:39 06:15 06:43 WBC 15.5 H RBC 3.23 L Hgb 8.1 L Hct 27.9 L MCV 86.4 MCH 25.1 L MCHC 29.0 L RDW 19.7 H Plt Count 504 H MPV 10.2 Immature Gran % (Auto) 2.1 H Neut % (Auto) 68.7 Lymph % (Auto) 12.3 L [place] % (Auto) 11.8 H Eos % (Auto) 5.0 H Baso % (Auto) 0.1 L Lymph # (Auto) 1.91 [place] # (Auto) 1.8 H Eos # (Auto) 0.8 H Baso # (Auto) 0.0 Abs Immat Gran (auto) 0.33 H Absolute Neuts (auto) 10.7 H Absolute Nucleated RBC 0.130 H Band Neutrophils % Not Reportable Nucleated RBC % 0.8 H Platelet Estimate Increased Hypochromasia 2+ Anisocytosis 1+ Ovalocytes 1+ Schistocytes None seen Sodium 142 Potassium 3.0 L Chloride 103 Carbon Dioxide 33 H Anion Gap 6 BUN 44 H Creatinine 1.78 H Estim Creat Clear Calc 30 Estimated GFR 37 L Glucose 53 L* POC Capillary Glucose 49 L* 57 L* Calcium 8.0 L Magnesium 1.4 L Total Bilirubin 0.3 AST 42 ALT 20 Alkaline Phosphatase 121 Total Protein 5.0 L Albumin 2.8 L 09/28/24 07:02 WBC RBC Hgb Hct MCV MCH MCHC RDW Plt Count MPV Immature Gran % (Auto) Neut % (Auto) Lymph % (Auto) [place] % (Auto) Eos % (Auto) Baso % (Auto) Lymph # (Auto) [place] # (Auto) Eos # (Auto) Baso # (Auto) Abs Immat Gran (auto) Absolute Neuts (auto) Absolute Nucleated RBC Band Neutrophils % Nucleated RBC % Platelet Estimate Hypochromasia Anisocytosis Ovalocytes Schistocytes Sodium Potassium Chloride Carbon Dioxide Anion Gap BUN Creatinine Estim Creat Clear Calc Estimated GFR Glucose POC Capillary Glucose 78 Calcium Magnesium Total Bilirubin AST ALT Alkaline Phosphatase Total Protein Albumin
[2024-09-28 12:27] LABS: Glucose Point of Care 184 mg/dl (65-105)
[2024-09-28] MEDS: POTASSIUM CHLORIDE 20 MEQ ER TABLET 40 MEQ PO (13:14)
[2024-09-28 16:13] LABS: Glucose Point of Care 174 mg/dl (65-105)
--- NOTE | 2024-09-28 19:53 | PC.NURSE ---
On 09/28/24, the IRRIGATION SUPERVISOR, [Norma FISHER ], provided care and completed [place] documentation on this patient. I have reviewed the IRRIGATION SUPERVISOR's documentation and agree with the findings.
[2024-09-28] MEDS: ACETAMINOPHEN 325 MG TABLET 650 MG PO (21:21)
--- NOTE | 2024-09-28 22:43 | ECG_ITS ---
Test Date: 2024-09-28 22:55:34 Measurements Intervals [place] Rate: 97 P: 0 [place]: 0 QRS: 60 QRSD: 132 T: 56 QT: 403 QTc: 513 Interpretive Statements ATRIAL FIBRILLATION WITH VENTRICULAR COUPLET RIGHT BUNDLE BRANCH BLOCK MINIMAL Q WAVES- INFERIOR LEADS ABNORMAL ECG Compared to ECG 09/23/2024 22:55:44 NO SIGNIFICANT CHANGE Electronically Signed On 09-29-2024 07:17:28 CDT by Usman Cochran D.O.
[2024-09-28 22:52] LABS: Glucose Point of Care 193 mg/dl (65-105)
[2024-09-28] MEDS: SODIUM CHLORIDE 0.9% IV 1,000 ML 999 ML IV CONT (23:18)
[2024-09-29] VITALS (11 sets, daily range): BP systolic 97–124; BP diastolic 47–62; PULSE 52–100; RESP 16–20; TEMP 36.2–36.7; O2SAT 93–98
[2024-09-29] MEDS: IPRATROPIUM 0.5 MG/ALBUTEROL SULFATE 2.5 MG AMPUL.NEB 3 ML INHALATION ×4 (02:02→22:02)
[2024-09-29] MEDS: ACETAMINOPHEN 325 MG TABLET 650 MG PO (02:15)
[2024-09-29] MEDS: AMPICILLIN 2 GM/NS 100 ML 2 GM/100 ML BAG IVPB ×4 (05:43→23:57)
[2024-09-29 06:48] LABS: Basophils Percent Auto 0.1 % (0.2-1.2); Eosinophils Absolute Auto 0.6 K/mm3 (0-0.3); Eosinophils Percent Auto 4.5 % (0-4.4); Hemoglobin 7.5 g/dL (14.0-18.0); Immature Granulocyte Percent A 1.6 % (0-0.5); Lymphocytes Absolute Auto 1.74 K/mm3 (0.9-3.2); Lymphocytes Percent Auto 14.3 % (18.3-44.2); Mean Corpuscular HGB Conc 28.8 g/dl (32-36); Mean Corpuscular Hemoglobin 25.3 pg (26-34); Mean Corpuscular Volume 87.8 fl (80-100); Mean Platelet Volume 10.8 fl (7.4-10.4); Monocytes Absolute Auto 1.9 K/mm3 (0.1-0.6); Monocytes Percent Auto 15.9 % (2.6-8.5); Neutrophils Absolute Auto 7.8 K/mm3 (1.3-6.7); Neutrophils Percent Auto 63.6 % (45.5-73.1); Nucleated Red Blood Cells Perc 0.2 % (0.0-0.2); Platelet Count Result 426 k/mm3 (150-375); Red Blood Count 2.96 M/mm3 (4.6-6.20); Red Cell Distribution Width 20.3 % (11.5-14.5); White Blood Count 12.2 K/mm3 (4.5-10.0)
[2024-09-29 07:14] LABS: Alanine Aminotransferase 21 U/L (6-50); Albumin Level 2.7 g/dL (3.5-5.1); Alkaline Phosphatase 123 U/L (38-126); Anion Gap 5 mmol/L (4-12); Aspartate Amino Transferase 41 U/L (17-59); Bilirubin,Total 0.4 mg/dL (0.2-1.3); Blood Urea Nitrogen 41 mg/dL (9-20); Calcium 7.5 mg/dL (8.4-10.2); Carbon Dioxide 32 mmol/L (22-30); Chloride 102 mmol/L (98-107); Estimated CRCL calculation 30 ml/min; Estimated Glomerular Filt Rate 37; Glucose 158 mg/dL (65-110); Magnesium 1.3 mg/dL (1.6-2.3); Potassium 3.4 mmol/L (3.4-5.0); Sodium 139 mmol/L (137-145); Total Protein 4.8 g/dL (6.3-8.2)
[2024-09-29 07:43] LABS: Platelet Estimate Adequate (Adequate)
[2024-09-29 07:44] LABS: Anisocytosis 1+
[2024-09-29 07:45] LABS: Hypochromasia 2+; Ovalocytes 1+; Schistocytes None Seen
[2024-09-29 08:01] LABS: Glucose Point of Care 159 mg/dl (65-105)
--- NOTE | 2024-09-29 09:32 | PCSTNOTE ---
Please refer to the Modified Barium Swallow Evaluation in the EMR. David Wei was seen this date for a repeat Modified Barium Swallow study to assess swallow function. Within the study, the pt was administered 5 mLs of thin liquids via spoon, puree, hard solid, and thin liquids via cup sip and straw drink. Across consistencies, the oral phase was noted to be WFL with occasional prolonged oral holding of thin liquids and pureed trials. Within the pharyngeal and esophageal stages, the pt's swallow was well within functional limits with no penetration or aspiration noted. Impressions/Recommendations: Functional swallowing. Level 7- Regular and Level 0- Regular. No further ST services indicated.
[2024-09-29] MEDS: cefTRIAXone 2 GM/NS 100 ML 2 GM/100 ML BAG IVPB ×2 (09:41→20:34)
--- NOTE | 2024-09-29 10:05 | P.PNIM_ITS ---
Progress Note: A&P Assessment and Plan (1) Febrile illness: Code(s): R50.9 - Fever, unspecified Status: Acute Assessment and Plan: 09/09: Patient presented with fevers, weakness, hypotension -UA was not reflective of UTI -CT Ch/A/P without contrast demonstrating right pleural effusion, slightly dilated esophagus, bilateral renal cyst,. Bilateral fat containing inguinal hernias and small fat containing umbilical hernia. -09/09: BCx NGTD MRSA nasal swab negative. COVID, influenza and RSV PCR negative. Started on cefepime and vancomycin (09/09) but vanco stopped on 09/11. Venous duplex negative for DVT. CXR with new opacities of the right lower lung zone which could represent atelectasis or pneumonia with small right pleural effusion. Repeat BCx 09/12 NGTD CRP 8 -> 27. WBC higher at 12K. But fever curve better. Patient feels better. Continue Cefepime for now. add flagyl for anaerobic coverage 09/14/24. recheck mrsa positive. will add linezolid TTE with no signifciant findings. Hx of aspiration PNA so will have speech therapy evaluate. Consider BERNA to exclude endocarditis but felt unlikely with negative BCx. does not meet's Carnes's criteria. on ceftriaxone,ampicillin ,vancomycin and acyclovir due to possible meningitis Lactic acid is normal CRP and ESR is elevated. Possible source of infection UTI s/p Lumbar puncture and CSF showed elevated elevated WBC and protein continue above Anti-infectives as ordered monitor To complete antibiotic course 2 weeks and antiviral 3 weeks. He will need to remain hospitalized until this antibiotic course is complete. Date of conclusion of acyclovir 10/09/2024 Date of conclude on ampicillin 10/02/2024 Date of conclusion of ceftriaxone 10/01/2024 09/29/2024 Patient is gradually getting better. Plan is to continue with IV antibiotics and antiviral medication. (2) Sepsis: Code(s): A41.9 - Sepsis, unspecified organism Status: Acute Assessment and Plan: Patient was hypotensive in the ER, received 30 cc/kg IV fluids and central line was inserted Levophed started but able to be weaned off Blood pressures stable Continue antibiotics as above 09/29/2024 Improving, continue current treatment. Monitor culture pain (3) Chronic kidney disease, stage 3: Code(s): N18.30 - Chronic kidney disease, stage 3 unspecified Status: Acute Assessment and Plan: Patient with history of CKD (baseline 2.50-3.26) On admission creatinine was 2.37. -patient did diurese well as he was volume overloaded and congested -received albumin -urine output has been adequate Cr worsened during the hospital stay suggesting GABRIELA. Peaked to 3.6 now stable and improving -continue to monitor renal function, electrolytes and urine output Nephrology consulted and board (4) Chronic obstructive pulmonary disease: Code(s): J44.9 - Chronic obstructive pulmonary disease, unspecified Status: Acute Assessment and Plan: No wheezing appreciated. Continue neb treatments. Continue home Spiriva now on 3 liters oxygen conitnue nighttime BiPAP BiPAP has been tapered off. Did have metabolic acidosis with uncompensated respiratory acidosis Repeat ABG stable (5) A-fib: Code(s): I48.91 - Unspecified atrial fibrillation Status: Acute Assessment and Plan: History of AFib -on carvedilol at home -will hold for now as patient's BP still soft -heart rate is controlled for now Not on anticoagulation at home due to history of bleeding gastric ulcer. His last EGD 3-4 years ago (6) Hypertension: Code(s): I10 - Essential (primary) hypertension Status: Chronic Assessment and Plan: Patient on Coreg, lisinopril and chlorthalidone at home. titrate home meds with clinical course (7) Type 2 diabetes mellitus: Code(s): E11.9 - Type 2 diabetes mellitus without complications Status: Chronic Assessment and Plan: Glucose remains well controlled. Continue AccuCheks covering with sliding scale. Hypoglycemia protocol available as needed. Resume home lantus and aspart when able Hypoglycemic this a.m. with hold Lantus (8) Renal mass: Code(s): N28.89 - Other specified disorders of kidney and ureter Status: Acute Assessment and Plan: Incidental finding by CT showing a left upper pole cyst measuring 2.9 cm. Exophytic cyst is seen in the right kidney midpole measuring 3 cm. Tiny hypodense lesion seen in the right kidney lower pole most likely hemorrhagic cyst. Tiny mass cannot be excluded. Follow-up advised. awaiting transfer to [facility] for oncology eval and treat (9) Slurred speech: Code(s): R47.81 - Slurred speech Status: Acute Assessment and Plan: Noticed some slurred speech 09/14/24 Brain MRI:1. 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 No acute intracranial process. 2. Age-related changes including mild diffuse volume loss and mild scattered nonspecific white matter T2 hyperintensity consistent with chronic small vessel ischemic disease. Echocardiogram was performed on 08/30/2024 which shows moderate aortic stenosis Carotid Doppler:Mildly elevated velocity in the right internal carotid artery suggests moderate (50-69%) stenosis, though noted significant plaque clearly evident. Antegrade flow in the bilateral vertebral arteries. Following Neurology recommendation Status post lumbar puncture Started on ceftriaxone, ampicillin, Acyclovir and vancomycin Neuro check q.[address] head 09/19 negative Will discontinue methylprednisolone dysphagia: failed swallow. NG placed. MBS repeat performed 09/25/2024 and will be on minced and moist diet. Removed NG today. Encourage oral diet Will repeat MBS has suggested by speech Plan Hypernatremia free water flushes added. Monitor BMP which is improving At the request of , she wanted to transfer the [facility] for continuity of care. Still Awaiting transfer to [facility] as beds not available Subjective Date/time seen: 09/29/24 10:05 Interval history: Patient was seen during the morning rounds today. No new overnight complaints. No shortness or chest pain. Mood stable Review of Systems Review of Systems: All systems reviewed & are unremarkable except as noted in HPI and below Exam Narrative: Patient is comfortable, awake and alert HEENT: eyes are clear and none icteric NG in place LUNGS:CTA HEART: RR S1S2 ABD: BS+, Soft and nontender Lower extremities: no edema SKIN: nonjaundiced Neuro: grossly intact. Generalized weakness but moves all extremities follow commands Const: Other: Lethargic, A&O x1, warm to touch HENMT: Mouth: Yes dry mucous membranes Eyes: Pupils: Equal, round and reactive pupils present Neck: Neck: supple Resp: Effort & Inspection: normal respiratory effort Auscultation: clear to auscultation bilaterally Cardio: Rate: regular rate Rhythm: regular rhythm Heart sounds: Murmur heart sound present (Systolic murmur) GI: Inspection: non-distended : General: Yes bladder normal to palpation Neuro: Cranial nerves: Yes Equal, round and reactive pupils present Motor exam (neuro): 5/5 motor strength present throughout Sensory Exam: normal sensation Extrem: General: no edema Objective Data Vital Signs Vital Signs: Vital Signs - 24 hr 09/28/24 14:00 09/28/24 15:14 09/28/24 15:14 Temperature 36.4 C L Pulse Rate 100 78 78 Respiratory Rate 20 20 20 Blood Pressure 108/45 L Pulse Oximetry 98 97 Oxygen Delivery Room Air 09/28/24 15:24 09/28/24 17:07 09/28/24 20:04 Temperature Pulse Rate 85 80 81 Respiratory Rate 20 20 Blood Pressure Pulse Oximetry Oxygen Delivery 09/28/24 20:06 09/28/24 20:12 09/28/24 23:00 Temperature 36.4 C Pulse Rate 84 94 Respiratory Rate 20 18 Blood Pressure 78/44 L Pulse Oximetry 95 98 Oxygen Delivery 09/29/24 02:02 09/29/24 04:39 09/29/24 07:32 Temperature 36.5 C Pulse Rate 79 72 Respiratory Rate 20 16 Blood Pressure 97/57 L Pulse Oximetry 96 95 Oxygen Delivery Room Air 09/29/24 07:32 09/29/24 07:43 Temperature Pulse Rate 86 92 Respiratory Rate 20 18 Blood Pressure Pulse Oximetry Oxygen Delivery Intake/Output Intake/Output: Intake & Output 09/26/24 09/27/24 09/28/24 09/29/24 23:59 23:59 23:59 23:59 Intake Total 2190 2362.8 1447.6 1567.6 Output Total 7475 636 3837 700 Balance 1040 2212.8 72.6 867.6 Meds/Results Medications: Active Medications Generic Name Dose Route Start Last Admin Trade Name Freq PRN Reason Stop Dose Admin Acetaminophen 650 mg 09/10/24 00:24 09/29/24 02:15 Acetaminophen 325 Mg Tablet PO 650 mg Q4H PRN Administration Mild Pain (1-3) or Fever Albuterol 2 puff 09/26/24 11:30 Albuterol Sulfate (*Sp) Aerosol 1 Puff INHALATION QID PRN shortness of breath or wheezing Albuterol/Ipratropium 3 ml 09/19/24 20:00 09/29/24 07:32 Ipratropium 0.5 Mg/Albuterol Sulfate 2.5 Mg Ampul.Neb 3 Ml INHALATION 3 ml Q6HRT PJ Administration Aspirin 81 mg 09/15/24 09:00 09/28/24 10:15 Aspirin 81 Mg Enteric Tablet PO 81 mg QAM PJ Administration Atorvastatin Calcium 40 mg 09/15/24 09:00 09/28/24 10:15 Atorvastatin 40 Mg Tablet PO 40 mg DAILY JP Administration Carvedilol 12.5 mg 09/26/24 18:00 09/29/24 05:16 Carvedilol 12.5 Mg Tablet PO Not Given Q12H PJ Chlorthalidone 25 mg 09/27/24 09:00 09/28/24 10:15 Chlorthalidone 25 Mg Tablet PO 25 mg DAILY PJ Administration Dextrose 12.5 gm 09/10/24 09:20 Dextrose 50% 25 Gm/50 Ml Syringe IV PUSH PRN PRN Hypoglycemia Protocol Dextrose 12.5 gm 09/28/24 11:47 Dextrose 50% 25 Gm/50 Ml Syringe IV PUSH PRN PRN Hypoglycemia Protocol Dorzolamide/Timolol 1 drop 09/13/24 09:40 09/28/24 20:14 Dorzolamide/Timolol Ophth Sarah 10 Ml Bottle EACH EYE 1 drop Q12HR PJ Administration Enoxaparin Sodium 40 mg 09/27/24 09:00 09/28/24 10:15 Enoxaparin 40 Mg/0.4 Ml Syringe SUB-Q 40 mg DAILY PJ Administration Glucagon 1 mg 09/10/24 09:20 Glucagon For Inj 1 Mg Vial IM PRN PRN Hypoglycemia Protocol Glucagon 1 mg 09/28/24 11:47 Glucagon For Inj 1 Mg Vial IM PRN PRN Hypoglycemia Protocol Glucose 15 gm 09/10/24 09:20 09/28/24 06:49 Glucose Oral Gel 15 Gm Of Glucse In 37.5 Gm Tube PO 15 gm PRN PRN Administration Hypoglycemia Protocol Glucose 15 gm 09/28/24 11:47 Glucose Oral Gel 15 Gm Of Glucse In 37.5 Gm Tube PO PRN PRN Hypoglycemia Protocol Hydralazine HCl 10 mg 09/22/24 11:30 09/25/24 08:43 Hydralazine Hcl 20 Mg/Ml Vial IV PUSH 10 mg Q6HR PRN Administration Blood Pressure - High Dextrose 1,000 mls @ 100 mls/hr 09/10/24 09:20 Dextrose 5% 1,000 Ml IVPB PRN PRN Hypoglycemia Protocol Ceftriaxone Sodium 2 gm in 100 mls @ 200 mls/hr 09/18/24 12:45 06/20/25 09:41 Rocephin 2 Gm/Ns 100 Ml IVPB 10/01/24 21:29 200 mls/hr Q12HR PJ Administration Ampicillin Sodium 2 gm in 100 mls @ 200 mls/hr 09/26/24 13:30 09/29/24 06:14 Ampicillin 2 Gm/Ns 100 Ml IVPB 10/02/24 06:29 Infused Q6HR PJ Infusion Acyclovir Sodium 880 mg/ 267.6 mls @ 250 mls/hr 09/27/24 00:30 09/29/24 00:21 Dextrose IVPB 10/09/24 10:05 Infused Q12HR JP Infusion Dextrose 1,000 mls @ 100 mls/hr 09/28/24 11:47 Dextrose 5% 1,000 Ml IVPB PRN PRN Hypoglycemia Protocol Insulin Aspart 1 - 2 units 09/28/24 21:00 09/28/24 20:19 Insulin Aspart (*Bkc) 100 Units/Ml SUB-Q Not Given HS [facility] Protocol Insulin Aspart 2 - 5 units 09/28/24 12:00 09/29/24 08:00 Insulin Aspart (*Bkc) 100 Units/Ml SUB-Q Not Given TIDWM [facility] Protocol Lisinopril 40 mg 09/27/24 09:00 09/28/24 10:15 Lisinopril 20 Mg Tablet PO 40 mg DAILY PJ Administration Ondansetron HCl 4 mg 09/10/24 00:24 09/10/24 13:19 Ondansetron Inj 4 Mg/2 Ml Vial IV PUSH 4 mg Q4H PRN Administration Nausea Ondansetron HCl 4 mg 09/26/24 11:49 Ondansetron Hcl Odt 4 Mg Tablet PO Q8H PRN Nausea Pantoprazole Sodium 40 mg 09/27/24 09:00 09/28/24 10:15 Pantoprazole 40 Mg Tablet PO 40 mg DAILY PJ Administration Sitagliptin Phosphate 25 mg 09/27/24 09:00 09/28/24 10:15 Sitagliptin Phosphate 25 Mg Tablet PO 25 mg DAILY PJ Administration Sodium Chloride 20 ml 09/11/24 08:00 Central Line Flush IV PUSH PRN PRN after blood draws Radiology Results: ITS Impressions Chest/Abdomen/Pelvis CT 09/09/24 21:59 IMPRESSION: CHEST: 1. Right pleural effusion. 2. No other definite acute cardiopulmonary pathology seen. 3. Slightly dilated esophagus which may indicate reflux esophagitis. ABDOMEN/PELVIS: 1. No evidence of appendicitis, diverticulitis or intestinal obstruction. 2. Bilateral renal cysts with small density in the right kidney lower pole. Follow-up advised. 3. Bilateral fat containing inguinal hernias. Small fat-containing umbilical hernia. Venous Doppler Study 09/11/24 10:07 IMPRESSION: 1: No lower extremity deep venous thrombosis. Chest CT 09/15/24 05:40 Impression: [id number] bilateral pleural effusions with probable minimal interstitial edema and minimal bibasilar atelectatic change. Carotid Doppler Study 09/15/24 05:43 Impression: Mildly elevated velocity in the right internal carotid artery suggests moderate (50-69%) stenosis, though noted significant plaque clearly evident. Antegrade flow in the bilateral vertebral arteries. Note: The methodology used is an indirect measurement validated against a direct method (such as the NASCET criteria) that compares diameters at the stenosis to the distal ICA. Brain MRI 09/15/24 15:43 IMPRESSION: 1. 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 No acute intracranial process. 2. Age-related changes including mild diffuse volume loss and mild scattered nonspecific white matter T2 hyperintensity consistent with chronic small vessel ischemic disease. Chest/Abdomen CT 09/16/24 13:52 IMPRESSION: 1. Unchanged small bilateral posterior layering pleural effusions with dependent atelectasis in both lungs. No pulmonary edema or pneumonia in the aerated portions of the lungs. Head CT 09/19/24 16:37 IMPRESSION: No acute intracranial findings. Lumbar Puncture Fluoroscopy 09/19/24 17:48 IMPRESSION: 1. Successful fluoro-guided lumbar puncture with normal opening pressure of 18 cm water which yielded only 2.5 mm of clear CSF. Abdomen X-Ray 09/24/24 06:30 Impression: NG tube in satisfactory position. Chest X-Ray 09/25/24 10:16 IMPRESSION: Right basilar atelectasis versus pneumonia. Minimal left pleural effusion. Labs Labs: Laboratory Results - last 24 hr 09/28/24 09/28/24 09/28/24 12:24 16:03 20:18 WBC RBC Hgb Hct MCV MCH MCHC RDW Plt Count MPV Immature Gran % (Auto) Neut % (Auto) Lymph % (Auto) Polk % (Auto) Eos % (Auto) Baso % (Auto) Lymph # (Auto) Polk # (Auto) Eos # (Auto) Baso # (Auto) Abs Immat Gran (auto) Absolute Neuts (auto) Absolute Nucleated RBC Band Neutrophils % Nucleated RBC % Platelet Estimate Hypochromasia Anisocytosis Ovalocytes Schistocytes Sodium Potassium Chloride Carbon Dioxide Anion Gap BUN Creatinine Estim Creat Clear Calc Estimated GFR Glucose POC Capillary Glucose 184 H 174 H 193 H Calcium Magnesium Total Bilirubin AST ALT Alkaline Phosphatase Total Protein Albumin 09/29/24 09/29/24 06:05 07:56 WBC 12.2 H RBC 2.96 L Hgb 7.5 L Hct 26.0 L MCV 87.8 MCH 25.3 L MCHC 28.8 L RDW 20.3 H Plt Count 426 H MPV 10.8 H Immature Gran % (Auto) 1.6 H Neut % (Auto) 63.6 Lymph % (Auto) 14.3 L Polk % (Auto) 15.9 H Eos % (Auto) 4.5 H Baso % (Auto) 0.1 L Lymph # (Auto) 1.74 Polk # (Auto) 1.9 H Eos # (Auto) 0.6 H Baso # (Auto) 0.0 Abs Immat Gran (auto) 0.20 H Absolute Neuts (auto) 7.8 H Absolute Nucleated RBC 0.020 H Band Neutrophils % Not Reportable Nucleated RBC % 0.2 Platelet Estimate Adequate Hypochromasia 2+ Anisocytosis 1+ Ovalocytes 1+ Schistocytes None seen Sodium 139 Potassium 3.4 Chloride 102 Carbon Dioxide 32 H Anion Gap 5 BUN 41 H Creatinine 1.78 H Estim Creat Clear Calc 30 Estimated GFR 37 L Glucose 158 H POC Capillary Glucose 159 H Calcium 7.5 L Magnesium 1.3 L Total Bilirubin 0.4 AST 41 ALT 21 Alkaline Phosphatase 123 Total Protein 4.8 L Albumin 2.7 L Quality VTE Prophylaxis VTE prophylaxis: pharmacologic ordered
[2024-09-29] MEDS: ASPIRIN 81 MG ENTERIC TABLET PO (10:18)
[2024-09-29] MEDS: lisinopriL 20 MG TABLET 40 MG PO (10:18)
[2024-09-29] MEDS: ATORVASTATIN 40 MG TABLET PO (10:18)
[2024-09-29] MEDS: SITagliptin PHOSPHATE 25 MG TABLET PO (10:18)
[2024-09-29] MEDS: PANTOPRAZOLE 40 MG TABLET PO (10:18)
[2024-09-29] MEDS: DORZOLAMIDE/TIMOLOL OPHTH SOL 10 ML BOTTLE 1 DROP EACH EYE ×2 (10:19→20:35)
[2024-09-29] MEDS: CHLORTHALIDONE 25 MG TABLET PO (10:19)
--- NOTE | 2024-09-29 10:38 | PCNFU ---
Nutrition Follow-Up Complete: Unintentional weight loss related to poor appetite and intake as evidenced by pt report and charted intake PO intake 50% or greater of meals and supplements Goal: Pt current nutrition is Regular. Nutrition recommendation: Oral nutrition supplements: Ensure HP+ (350 kcal, 20 g protein) TID Last recorded weight is 90 kg. Bowel Motility: +5 BMs 09/28 Labs Reviewed: Hgb 7.5, Hct 26, Alb 2.7, BUN 41, Cre 1.78, Mag 1.3 Meds Noted: Novolog, protonix, Zofran Skin: No skin issues noted Additional Notes: Awaiting transfer to [place]. Had repeat MBSS this morning and passed, regular diet. Will add supplements Monitor intake, wt, labs. Follow up in 3 days.
[2024-09-29 12:25] LABS: Glucose Point of Care 211 mg/dl (65-105)
[2024-09-29] MEDS: INSULIN ASPART (*BKC) 100 UNITS/ML SUB-Q (13:24)
[2024-09-29 16:44] LABS: Glucose Point of Care 133 mg/dl (65-105)
[2024-09-29 23:20] LABS: Glucose Point of Care 137 mg/dl (65-105)
[2024-09-30] VITALS (8 sets, daily range): BP systolic 105–115; BP diastolic 52–60; PULSE 69–112; RESP 16–20; TEMP 36.1–36.7; O2SAT 94–97
[2024-09-30] MEDS: IPRATROPIUM 0.5 MG/ALBUTEROL SULFATE 2.5 MG AMPUL.NEB 3 ML INHALATION ×3 (02:40→13:22)
[2024-09-30] MEDS: AMPICILLIN 2 GM/NS 100 ML 2 GM/100 ML BAG IVPB ×3 (05:15→18:25)
[2024-09-30 07:15] LABS: Hematocrit 26.5 % (42.0-52.0); Hemoglobin 7.8 g/dL (14.0-18.0); Mean Corpuscular HGB Conc 29.4 g/dl (32-36); Mean Corpuscular Hemoglobin 25.7 pg (26-34); Mean Corpuscular Volume 87.5 fl (80-100); Mean Platelet Volume 10.7 fl (7.4-10.4); Platelet Count Result 402 k/mm3 (150-375); Red Blood Count 3.03 M/mm3 (4.6-6.20); White Blood Count 12.1 K/mm3 (4.5-10.0)
[2024-09-30 07:33] LABS: Alanine Aminotransferase 21 U/L (6-50); Albumin Level 2.7 g/dL (3.5-5.1); Alkaline Phosphatase 138 U/L (38-126); Anion Gap 7 mmol/L (4-12); Aspartate Amino Transferase 44 U/L (17-59); Bilirubin,Total 0.5 mg/dL (0.2-1.3); Blood Urea Nitrogen 34 mg/dL (9-20); Calcium 7.8 mg/dL (8.4-10.2); Carbon Dioxide 29 mmol/L (22-30); Chloride 103 mmol/L (98-107); Estimated CRCL calculation 29 ml/min; Estimated Glomerular Filt Rate 35; Glucose 118 mg/dL (65-110); Potassium 3.3 mmol/L (3.4-5.0); Sodium 139 mmol/L (137-145); Total Protein 5.2 g/dL (6.3-8.2)
[2024-09-30 07:35] LABS: Glucose Point of Care 129 mg/dl (65-105)
--- NOTE | 2024-09-30 08:02 | PM.IMPN ---
Progress Note: A&P Assessment and Plan (1) Febrile illness: Code(s): R50.9 - Fever, unspecified Status: Acute Assessment and Plan: 09/09: Patient presented with fevers, weakness, hypotension -UA was not reflective of UTI -CT Ch/A/P without contrast demonstrating right pleural effusion, slightly dilated esophagus, bilateral renal cyst,. Bilateral fat containing inguinal hernias and small fat containing umbilical hernia. -09/09: BCx NGTD MRSA nasal swab negative. COVID, influenza and RSV PCR negative. Started on cefepime and vancomycin (09/09) but vanco stopped on 09/11. Venous duplex negative for DVT. CXR with new opacities of the right lower lung zone which could represent atelectasis or pneumonia with small right pleural effusion. Repeat BCx 09/12 NGTD CRP 8 -> 27. WBC higher at 12K. But fever curve better. Patient feels better. Continue Cefepime for now. add flagyl for anaerobic coverage 09/14/24. recheck mrsa positive. will add linezolid TTE with no signifciant findings. Hx of aspiration PNA so will have speech therapy evaluate. Consider BERNA to exclude endocarditis but felt unlikely with negative BCx. does not meet's Carnes's criteria. on ceftriaxone,ampicillin ,vancomycin and acyclovir due to possible meningitis Lactic acid is normal CRP and ESR is elevated. Possible source of infection UTI s/p Lumbar puncture and CSF showed elevated elevated WBC and protein continue above Anti-infectives as ordered monitor To complete antibiotic course 2 weeks and antiviral 3 weeks. He will need to remain hospitalized until this antibiotic course is complete. Date of conclusion of acyclovir 10/09/2024 Date of conclude on ampicillin 10/02/2024 Date of conclusion of ceftriaxone 10/01/2024 09/29/2024 Patient is gradually getting better. Plan is to continue with IV antibiotics and antiviral medication. 09/30/2024 Gradually improving Will continue to monitor Increase activity (2) Sepsis: Code(s): A41.9 - Sepsis, unspecified organism Status: Acute Assessment and Plan: Patient was hypotensive in the ER, received 30 cc/kg IV fluids and central line was inserted Levophed started but able to be weaned off Blood pressures stable Continue antibiotics as above 09/29/2024 Improving, continue current treatment. Monitor culture pain Gradually improving Will continue current treatment Increase activity (3) Chronic kidney disease, stage 3: Code(s): N18.30 - Chronic kidney disease, stage 3 unspecified Status: Acute Assessment and Plan: Patient with history of CKD (baseline 2.50-3.26) On admission creatinine was 2.37. -patient did diurese well as he was volume overloaded and congested -received albumin -urine output has been adequate Cr worsened during the hospital stay suggesting GABRIELA. Peaked to 3.6 now stable and improving -continue to monitor renal function, electrolytes and urine output Nephrology consulted and board (4) Chronic obstructive pulmonary disease: Code(s): J44.9 - Chronic obstructive pulmonary disease, unspecified Status: Acute Assessment and Plan: No wheezing appreciated. Continue neb treatments. Continue home Spiriva now on 3 liters oxygen conitnue nighttime BiPAP BiPAP has been tapered off. Did have metabolic acidosis with uncompensated respiratory acidosis Repeat ABG stable (5) A-fib: Code(s): I48.91 - Unspecified atrial fibrillation Status: Acute Assessment and Plan: History of AFib -on carvedilol at home -will hold for now as patient's BP still soft -heart rate is controlled for now Not on anticoagulation at home due to history of bleeding gastric ulcer. His last EGD 3-4 years ago (6) Hypertension: Code(s): I10 - Essential (primary) hypertension Status: Chronic Assessment and Plan: Patient on Coreg, lisinopril and chlorthalidone at home. titrate home meds with clinical course (7) Type 2 diabetes mellitus: Code(s): E11.9 - Type 2 diabetes mellitus without complications Status: Chronic Assessment and Plan: Glucose remains well controlled. Continue AccuCheks covering with sliding scale. Hypoglycemia protocol available as needed. Resume home lantus and aspart when able Hypoglycemic this a.m. with hold Lantus (8) Renal mass: Code(s): N28.89 - Other specified disorders of kidney and ureter Status: Acute Assessment and Plan: Incidental finding by CT showing a left upper pole cyst measuring 2.9 cm. Exophytic cyst is seen in the right kidney midpole measuring 3 cm. Tiny hypodense lesion seen in the right kidney lower pole most likely hemorrhagic cyst. Tiny mass cannot be excluded. Follow-up advised. awaiting transfer to [facility] for oncology eval and treat (9) Slurred speech: Code(s): R47.81 - Slurred speech Status: Acute Assessment and Plan: Noticed some slurred speech 09/14/24 Brain MRI:1. 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 No acute intracranial process. 2. Age-related changes including mild diffuse volume loss and mild scattered nonspecific white matter T2 hyperintensity consistent with chronic small vessel ischemic disease. Echocardiogram was performed on 08/30/2024 which shows moderate aortic stenosis Carotid Doppler:Mildly elevated velocity in the right internal carotid artery suggests moderate (50-69%) stenosis, though noted significant plaque clearly evident. Antegrade flow in the bilateral vertebral arteries. Following Neurology recommendation Status post lumbar puncture Started on ceftriaxone, ampicillin, Acyclovir and vancomycin Neuro check q.[address] head 09/19 negative Will discontinue methylprednisolone dysphagia: failed swallow. NG placed. MBS repeat performed 09/25/2024 and will be on minced and moist diet. Removed NG today. Encourage oral diet Will repeat MBS has suggested by speech Plan 09/30/2024 Hypernatremia free water flushes added. Monitor BMP which is improving At the request of , she wanted to transfer the [place] for continuity of care. Still Awaiting transfer to [facility] as beds not available Subjective Date/time seen: 09/30/24 08:02 Interval history: Patient was seen during the morning rounds today. Feeling slightly better. No shortness or chest pain. No nausea or vomiting Mood stable Review of Systems Review of Systems: All systems reviewed & are unremarkable except as noted in HPI and below Exam Narrative: Patient is comfortable, awake and alert HEENT: eyes are clear and none icteric NG in place LUNGS:CTA HEART: RR S1S2 ABD: BS+, Soft and nontender Lower extremities: no edema SKIN: nonjaundiced Neuro: grossly intact. Generalized weakness but moves all extremities follow commands Const: Other: Lethargic, A&O x1, warm to touch HENMT: Mouth: Yes dry mucous membranes Eyes: Pupils: Equal, round and reactive pupils present Neck: Neck: supple Resp: Effort & Inspection: normal respiratory effort Auscultation: clear to auscultation bilaterally Cardio: Rate: regular rate Rhythm: regular rhythm Heart sounds: Murmur heart sound present (Systolic murmur) GI: Inspection: non-distended : General: Yes bladder normal to palpation Neuro: Cranial nerves: Yes Equal, round and reactive pupils present Motor exam (neuro): 5/5 motor strength present throughout Sensory Exam: normal sensation Extrem: General: no edema Objective Data Vital Signs Vital Signs: Vital Signs - 24 hr 09/29/24 14:00 09/29/24 14:29 09/29/24 14:38 Temperature 36.7 C Pulse Rate 52 L 80 84 Respiratory Rate 16 18 18 Blood Pressure 104/47 L Pulse Oximetry 98 Oxygen Delivery Fraction of Inspired Oxygen 09/29/24 22:00 09/29/24 22:03 09/29/24 22:05 Temperature 36.2 C L Pulse Rate 100 97 Respiratory Rate 20 18 Blood Pressure 124/62 Pulse Oximetry 97 93 Oxygen Delivery Room Air Fraction of Inspired Oxygen 09/29/24 22:11 09/30/24 02:40 09/30/24 02:49 Temperature Pulse Rate 94 112 H 103 H Respiratory Rate 18 18 18 Blood Pressure Pulse Oximetry Oxygen Delivery Fraction of Inspired Oxygen 09/30/24 06:00 09/30/24 07:44 09/30/24 07:44 Temperature 36.1 C L Pulse Rate 69 94 Respiratory Rate 18 20 Blood Pressure 105/52 L Pulse Oximetry 96 94 Oxygen Delivery Room Air Fraction of Inspired Oxygen 09/30/24 07:51 Temperature Pulse Rate 100 Respiratory Rate 20 Blood Pressure Pulse Oximetry Oxygen Delivery Fraction of Inspired Oxygen Intake/Output Intake/Output: Intake & Output 09/27/24 09/28/24 09/29/24 09/30/24 23:59 23:59 23:59 23:59 Intake Total 2362.8 1447.6 2615.2 550 Output Total 150 1375 1500 425 Balance 2212.8 72.6 1115.2 125 Meds/Results Medications: Active Medications Generic Name Dose Route Start Last Admin Trade Name Freq PRN Reason Stop Dose Admin Acetaminophen 650 mg 09/10/24 00:24 09/29/24 02:15 Acetaminophen 325 Mg Tablet PO 650 mg Q4H PRN Administration Mild Pain (1-3) or Fever Albuterol 2 puff 09/26/24 11:30 Albuterol Sulfate (*Sp) Aerosol 1 Puff INHALATION QID PRN shortness of breath or wheezing Albuterol/Ipratropium 3 ml 09/19/24 20:00 09/30/24 07:44 Ipratropium 0.5 Mg/Albuterol Sulfate 2.5 Mg Ampul.Neb 3 Ml INHALATION 3 ml Q6HRT PJ Administration Aspirin 81 mg 09/15/24 09:00 09/29/24 10:18 Aspirin 81 Mg Enteric Tablet PO 81 mg QAM PJ Administration Atorvastatin Calcium 40 mg 09/15/24 09:00 09/29/24 10:18 Atorvastatin 40 Mg Tablet PO 40 mg DAILY PJ Administration Carvedilol 12.5 mg 09/26/24 18:00 09/30/24 05:21 Carvedilol 12.5 Mg Tablet PO Not Given Q12H PJ Chlorthalidone 25 mg 09/27/24 09:00 09/29/24 10:19 Chlorthalidone 25 Mg Tablet PO 25 mg DAILY PJ Administration Dextrose 12.5 gm 09/10/24 09:20 Dextrose 50% 25 Gm/50 Ml Syringe IV PUSH PRN PRN Hypoglycemia Protocol Dextrose 12.5 gm 09/28/24 11:47 Dextrose 50% 25 Gm/50 Ml Syringe IV PUSH PRN PRN Hypoglycemia Protocol Dorzolamide/Timolol 1 drop 09/13/24 09:40 09/29/24 20:35 Dorzolamide/Timolol Ophth Sarah 10 Ml Bottle EACH EYE 1 drop Q12HR PJ Administration Enoxaparin Sodium 40 mg 09/27/24 09:00 09/29/24 10:00 Enoxaparin 40 Mg/0.4 Ml Syringe SUB-Q Not Given DAILY PJ Glucagon 1 mg 09/10/24 09:20 Glucagon For Inj 1 Mg Vial IM PRN PRN Hypoglycemia Protocol Glucagon 1 mg 09/28/24 11:47 Glucagon For Inj 1 Mg Vial IM PRN PRN Hypoglycemia Protocol Glucose 15 gm 09/10/24 09:20 09/28/24 06:49 Glucose Oral Gel 15 Gm Of Glucse In 37.5 Gm Tube PO 15 gm PRN PRN Administration Hypoglycemia Protocol Glucose 15 gm 09/28/24 11:47 Glucose Oral Gel 15 Gm Of Glucse In 37.5 Gm Tube PO PRN PRN Hypoglycemia Protocol Hydralazine HCl 10 mg 09/22/24 11:30 09/25/24 08:43 Hydralazine Hcl 20 Mg/Ml Vial IV PUSH 10 mg Q6HR PRN Administration Blood Pressure - High Dextrose 1,000 mls @ 100 mls/hr 09/10/24 09:20 Dextrose 5% 1,000 Ml IVPB PRN PRN Hypoglycemia Protocol Ceftriaxone Sodium 2 gm in 100 mls @ 200 mls/hr 09/18/24 12:45 09/29/24 20:34 Rocephin 2 Gm/Ns 100 Ml IVPB 10/01/24 21:29 200 mls/hr Q12HR PJ Administration Ampicillin Sodium 2 gm in 100 mls @ 200 mls/hr 09/26/24 13:30 09/30/24 05:15 Ampicillin 2 Gm/Ns 100 Ml IVPB 10/02/24 06:29 200 mls/hr Q6HR PJ Administration Acyclovir Sodium 880 mg/ 267.6 mls @ 250 mls/hr 09/27/24 00:30 09/29/24 20:35 Dextrose IVPB 10/09/24 10:05 250 mls/hr Q12HR PJ Administration Dextrose 1,000 mls @ 100 mls/hr 09/28/24 11:47 Dextrose 5% 1,000 Ml IVPB PRN PRN Hypoglycemia Protocol Insulin Aspart 1 - 2 units 09/28/24 21:00 09/29/24 20:59 Insulin Aspart (*Bkc) 100 Units/Ml SUB-Q Not Given HS PJ Protocol Insulin Aspart 2 - 5 units 09/28/24 12:00 09/29/24 17:09 Insulin Aspart (*Bkc) 100 Units/Ml SUB-Q Not Given TIDWM PJ Protocol Lisinopril 40 mg 09/27/24 09:00 09/29/24 10:18 Lisinopril 20 Mg Tablet PO 40 mg DAILY PJ Administration Ondansetron HCl 4 mg 09/10/24 00:24 09/10/24 13:19 Ondansetron Inj 4 Mg/2 Ml Vial IV PUSH 4 mg Q4H PRN Administration Nausea Ondansetron HCl 4 mg 09/26/24 11:49 Ondansetron Hcl Odt 4 Mg Tablet PO Q8H PRN Nausea Pantoprazole Sodium 40 mg 09/27/24 09:00 09/29/24 10:18 Pantoprazole 40 Mg Tablet PO 40 mg DAILY PJ Administration Sitagliptin Phosphate 25 mg 09/27/24 09:00 09/29/24 10:18 Sitagliptin Phosphate 25 Mg Tablet PO 25 mg DAILY PJ Administration Sodium Chloride 20 ml 09/11/24 08:00 Central Line Flush IV PUSH PRN PRN after blood draws Radiology Results: ITS Impressions Chest/Abdomen/Pelvis CT 09/09/24 21:59 IMPRESSION: CHEST: 1. Right pleural effusion. 2. No other definite acute cardiopulmonary pathology seen. 3. Slightly dilated esophagus which may indicate reflux esophagitis. ABDOMEN/PELVIS: 1. No evidence of appendicitis, diverticulitis or intestinal obstruction. 2. Bilateral renal cysts with small density in the right kidney lower pole. Follow-up advised. 3. Bilateral fat containing inguinal hernias. Small fat-containing umbilical hernia. Venous Doppler Study 09/11/24 10:07 IMPRESSION: 1: No lower extremity deep venous thrombosis. Chest CT 09/15/24 05:40 Impression: [id number] bilateral pleural effusions with probable minimal interstitial edema and minimal bibasilar atelectatic change. Carotid Doppler Study 09/15/24 05:43 Impression: Mildly elevated velocity in the right internal carotid artery suggests moderate (50-69%) stenosis, though noted significant plaque clearly evident. Antegrade flow in the bilateral vertebral arteries. Note: The methodology used is an indirect measurement validated against a direct method (such as the NASCET criteria) that compares diameters at the stenosis to the distal ICA. Brain MRI 09/15/24 15:43 IMPRESSION: 1. 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 No acute intracranial process. 2. Age-related changes including mild diffuse volume loss and mild scattered nonspecific white matter T2 hyperintensity consistent with chronic small vessel ischemic disease. Chest/Abdomen CT 09/16/24 13:52 IMPRESSION: 1. Unchanged small bilateral posterior layering pleural effusions with dependent atelectasis in both lungs. No pulmonary edema or pneumonia in the aerated portions of the lungs. Head CT 09/19/24 16:37 IMPRESSION: No acute intracranial findings. Lumbar Puncture Fluoroscopy 09/19/24 17:48 IMPRESSION: 1. Successful fluoro-guided lumbar puncture with normal opening pressure of 18 cm water which yielded only 2.5 mm of clear CSF. Abdomen X-Ray 09/24/24 06:30 Impression: NG tube in satisfactory position. Chest X-Ray 09/25/24 10:16 IMPRESSION: Right basilar atelectasis versus pneumonia. Minimal left pleural effusion. Modified Barium Swallow 09/29/24 12:08 IMPRESSION: Patient tolerated regular consistency oral feedings in the upright position. Please correlate with speech pathologist findings and specific feeding recommendations. Labs Labs: Laboratory Results - last 24 hr 09/29/24 09/29/24 09/29/24 11:53 16:42 20:56 WBC RBC Hgb Hct MCV MCH MCHC RDW Plt Count MPV Sodium Potassium Chloride Carbon Dioxide Anion Gap BUN Creatinine Estim Creat Clear Calc Estimated GFR Glucose POC Capillary Glucose 211 H 133 H 137 H Calcium Total Bilirubin AST ALT Alkaline Phosphatase Total Protein Albumin 09/30/24 09/30/24 06:34 07:31 WBC 12.1 H RBC 3.03 L Hgb 7.8 L Hct 26.5 L MCV 87.5 MCH 25.7 L MCHC 29.4 L RDW 21.0 H Plt Count 402 H MPV 10.7 H Sodium 139 Potassium 3.3 L Chloride 103 Carbon Dioxide 29 Anion Gap 7 BUN 34 H Creatinine 1.86 H Estim Creat Clear Calc 29 Estimated GFR 35 L Glucose 118 H POC Capillary Glucose 129 H Calcium 7.8 L Total Bilirubin 0.5 AST 44 ALT 21 Alkaline Phosphatase 138 H Total Protein 5.2 L Albumin 2.7 L Quality VTE Prophylaxis VTE prophylaxis: pharmacologic ordered
[2024-09-30] MEDS: cefTRIAXone 2 GM/NS 100 ML 2 GM/100 ML BAG IVPB (08:39)
[2024-09-30] MEDS: ATORVASTATIN 40 MG TABLET PO (10:33)
[2024-09-30] MEDS: ASPIRIN 81 MG ENTERIC TABLET PO (10:33)
[2024-09-30] MEDS: CHLORTHALIDONE 25 MG TABLET PO (10:33)
[2024-09-30] MEDS: SITagliptin PHOSPHATE 25 MG TABLET PO (10:33)
[2024-09-30] MEDS: PANTOPRAZOLE 40 MG TABLET PO (10:33)
[2024-09-30] MEDS: POTASSIUM CHLORIDE 20 MEQ ER TABLET 40 MEQ PO (10:34)
[2024-09-30] MEDS: DORZOLAMIDE/TIMOLOL OPHTH SOL 10 ML BOTTLE 1 DROP EACH EYE (10:34)
[2024-09-30] MEDS: ENOXAPARIN 40 MG/0.4 ML SYRINGE SUB-Q (10:41)
[2024-09-30 11:28] LABS: Glucose Point of Care 191 mg/dl (65-105)
[2024-09-30 16:50] LABS: Glucose Point of Care 125 mg/dl (65-105)
--- NOTE | 2024-10-02 08:57 | WPDCDIQUERY2 ---
CDI Query Clarification Request Please clarify if sepsis has been ruled in or ruled out The medical chart reflects the following: Assessment and Plan (1) Febrile illness: Code(s): R50.9 - Fever, unspecified Status: Acute Assessment and Plan: 09/09: Patient presented with fevers, weakness, hypotension -UA was not reflective of UTI -CT Ch/A/P without contrast demonstrating right pleural effusion, slightly dilated esophagus, bilateral renal cyst,. Bilateral fat containing inguinal hernias and small fat containing umbilical hernia. -09/09: BCx NGTD MRSA nasal swab negative. COVID, influenza and RSV PCR negative. Started on cefepime and vancomycin (09/09) but vanco stopped on 09/11. Venous duplex negative for DVT. CXR with new opacities of the right lower lung zone which could represent atelectasis or pneumonia with small right pleural effusion. Repeat BCx 09/12 NGTD CRP 8 -> 27. WBC higher at 12K. But fever curve better. Patient feels better. Continue Cefepime for now. add flagyl for anaerobic coverage 09/14/24. recheck mrsa positive. will add linezolid TTE with no signifciant findings. Hx of aspiration PNA so will have speech therapy evaluate. Consider BERNA to exclude endocarditis but felt unlikely with negative BCx. does not meet's Carnes's criteria. on ceftriaxone,ampicillin ,vancomycin and acyclovir due to possible meningitis Lactic acid is normal CRP and ESR is elevated. Possible source of infection UTI s/p Lumbar puncture and CSF showed elevated elevated WBC and protein continue above Anti-infectives as ordered monitor To complete antibiotic course 2 weeks and antiviral 3 weeks. He will need to remain hospitalized until this antibiotic course is complete. Date of conclusion of acyclovir 10/09/2024 Date of conclude on ampicillin 10/02/2024 Date of conclusion of ceftriaxone 10/01/2024 (2) Sepsis: Code(s): A41.9 - Sepsis, unspecified organism Status: Acute Assessment and Plan: Patient was hypotensive in the ER, received 30 cc/kg IV fluids and central line was inserted Levophed started but able to be weaned off Blood pressures stable Continue antibiotics as above (2) Sepsis: Code(s): A41.9 - Sepsis, unspecified organism Status: Acute Assessment and Plan: Patient was hypotensive in the ER, received 30 cc/kg IV fluids and central line was inserted Levophed started but able to be weaned off Blood pressures stable Continue antibiotics as above 09/29/2024 Improving, continue current treatment. Monitor culture pain Gradually improving Will continue current treatment Increase activity Blood cultures all negative
--- NOTE | 2024-10-06 11:47 | PM.TDS ---
Transfer Discharge Sum: Prov Provider Date of admission: 09/10/24 00:24 Primary care physician: Kraig Ching, Admitting clinician: Argentina Corona MD Consults: 09/10/24 00:26 Consult to Physician Routine Comment: Consulting Provider: Ben Grossman Reason for consultation: Persistent hypotension, febrile, sepsis? Has provider been notified: Yes 09/14/24 Consult to Physician Routine Comment: Spoke to DR @1237 09/14 [facility] – [place] Consulting Provider: Nixon Rich rod bending machine operator/MD group to consult: neurology Reason for consultation: slurred speech Has provider been notified: Yes 09/18/24 Consult to Dietitian Routine Reason for Consult:: nutrition 09/19/24 Consult to Physician Routine Comment: Consulting Provider: Nixon Rich Reason for consultation: meningitis Has provider been notified: Yes 09/20/24 Consult to Physician Routine Comment: Spoke with provider 09/20 @ 8678 Consulting Provider: Marilu Rdz rod bending machine operator/MD group to consult: Nephrology Reason for consultation: GABRIELA on CKD Has provider been notified: Yes Consult to Physician Routine Comment: Spoke with provider 09/20 @ 1530 Consulting Provider: Davon Wilder rod bending machine operator/MD group to consult: Pulmonology Reason for consultation: Resp failure Has provider been notified: Yes Consult to Physician Routine Comment: Spoke with provider office 09/20 @ 6005 Consulting Provider: Jerry Martinez Reason for consultation: r/o metastasis, hx of cancer Has provider been notified: Yes DS: Admitting Diagnosis Discharge Date 09/30/24 Admitting Diagnosis Fever DS: Discharge Diagnosis Discharge Diagnosis (1) Febrile illness: Code(s): R50.9 - Fever, unspecified Status: Acute Assessment and Plan: 09/09: Patient presented with fevers, weakness, hypotension -UA was not reflective of UTI -CT Ch/A/P without contrast demonstrating right pleural effusion, slightly dilated esophagus, bilateral renal cyst,. Bilateral fat containing inguinal hernias and small fat containing umbilical hernia. -09/09: BCx NGTD MRSA nasal swab negative. COVID, influenza and RSV PCR negative. Started on cefepime and vancomycin (09/09) but vanco stopped on 09/11. Venous duplex negative for DVT. CXR with new opacities of the right lower lung zone which could represent atelectasis or pneumonia with small right pleural effusion. Repeat BCx 09/12 NGTD CRP 8 -> 27. WBC higher at 12K. But fever curve better. Patient feels better. Continue Cefepime for now. add flagyl for anaerobic coverage 09/14/24. recheck mrsa positive. will add linezolid TTE with no signifciant findings. Hx of aspiration PNA so will have speech therapy evaluate. Consider BERNA to exclude endocarditis but felt unlikely with negative BCx. does not meet's Carnes's criteria. on ceftriaxone,ampicillin ,vancomycin and acyclovir due to possible meningitis Lactic acid is normal CRP and ESR is elevated. Possible source of infection UTI s/p Lumbar puncture and CSF showed elevated elevated WBC and protein continue above Anti-infectives as ordered monitor To complete antibiotic course 2 weeks and antiviral 3 weeks. He will need to remain hospitalized until this antibiotic course is complete. Date of conclusion of acyclovir 10/09/2024 Date of conclude on ampicillin 10/02/2024 Date of conclusion of ceftriaxone 10/01/2024 09/29/2024 Patient is gradually getting better. Plan is to continue with IV antibiotics and antiviral medication. 09/30/2024 Gradually improving Will continue to monitor Increase activity (2) Sepsis: Code(s): A41.9 - Sepsis, unspecified organism Status: Acute Assessment and Plan: Patient was hypotensive in the ER, received 30 cc/kg IV fluids and central line was inserted Levophed started but able to be weaned off Blood pressures stable Continue antibiotics as above 09/29/2024 Improving, continue current treatment. Monitor culture pain Gradually improving Will continue current treatment Increase activity (3) Chronic kidney disease, stage 3: Code(s): N18.30 - Chronic kidney disease, stage 3 unspecified Status: Acute Assessment and Plan: Patient with history of CKD (baseline 2.50-3.26) On admission creatinine was 2.37. -patient did diurese well as he was volume overloaded and congested -received albumin -urine output has been adequate Cr worsened during the hospital stay suggesting GABRIELA. Peaked to 3.6 now stable and improving -continue to monitor renal function, electrolytes and urine output Nephrology consulted and board (4) Chronic obstructive pulmonary disease: Code(s): J44.9 - Chronic obstructive pulmonary disease, unspecified Status: Acute Assessment and Plan: No wheezing appreciated. Continue neb treatments. Continue home Spiriva now on 3 liters oxygen conitnue nighttime BiPAP BiPAP has been tapered off. Did have metabolic acidosis with uncompensated respiratory acidosis Repeat ABG stable (5) A-fib: Code(s): I48.91 - Unspecified atrial fibrillation Status: Acute Assessment and Plan: History of AFib -on carvedilol at home -will hold for now as patient's BP still soft -heart rate is controlled for now Not on anticoagulation at home due to history of bleeding gastric ulcer. His last EGD 3-4 years ago (6) Hypertension: Code(s): I10 - Essential (primary) hypertension Status: Chronic Assessment and Plan: Patient on Coreg, lisinopril and chlorthalidone at home. titrate home meds with clinical course (7) Type 2 diabetes mellitus: Code(s): E11.9 - Type 2 diabetes mellitus without complications Status: Chronic Assessment and Plan: Glucose remains well controlled. Continue AccuCheks covering with sliding scale. Hypoglycemia protocol available as needed. Resume home lantus and aspart when able Hypoglycemic this a.m. with hold Lantus (8) Renal mass: Code(s): N28.89 - Other specified disorders of kidney and ureter Status: Acute Assessment and Plan: Incidental finding by CT showing a left upper pole cyst measuring 2.9 cm. Exophytic cyst is seen in the right kidney midpole measuring 3 cm. Tiny hypodense lesion seen in the right kidney lower pole most likely hemorrhagic cyst. Tiny mass cannot be excluded. Follow-up advised. awaiting transfer to [facility] for oncology eval and treat (9) Slurred speech: Code(s): R47.81 - Slurred speech Status: Acute Assessment and Plan: Noticed some slurred speech 09/14/24 Brain MRI:1. 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 No acute intracranial process. 2. Age-related changes including mild diffuse volume loss and mild scattered nonspecific white matter T2 hyperintensity consistent with chronic small vessel ischemic disease. Echocardiogram was performed on 08/30/2024 which shows moderate aortic stenosis Carotid Doppler:Mildly elevated velocity in the right internal carotid artery suggests moderate (50-69%) stenosis, though noted significant plaque clearly evident. Antegrade flow in the bilateral vertebral arteries. Following Neurology recommendation Status post lumbar puncture Started on ceftriaxone, ampicillin, Acyclovir and vancomycin Neuro check q.[address] head 09/19 negative Will discontinue methylprednisolone dysphagia: failed swallow. NG placed. MBS repeat performed 09/25/2024 and will be on minced and moist diet. Removed NG today. Encourage oral diet Will repeat MBS has suggested by speech Plan 09/30/2024 Hypernatremia free water flushes added. Monitor BMP which is improving At the request of , she wanted to transfer the [facility] for continuity of care. Still Awaiting transfer to [facility] as beds not available Transfer Discharge Sum: Med Medications Active and Home Medications: Home Medications insulin glargine 100 unit/mL (3 mL) subcutaneous pen (Lantus Solostar U-100 Insulin) 20 unit subcut QHS 06/19/22 [History Confirmed 09/10/24] pantoprazole 40 mg tablet,delayed release 40 mg PO DAILY 06/19/22 [History Confirmed 09/10/24] albuterol sulfate 90 mcg/actuation aerosol inhaler 2 puff inhalation QID PRN shortness of breath or wheezing #8.5 grams 06/21/22 [Rx Confirmed 09/10/24] abiraterone 250 mg tablet 1,000 mg PO HS 03/26/24 [History Confirmed 09/10/24] carvedilol 12.5 mg tablet 12.5 mg PO Q12H 03/26/24 [History Confirmed 09/10/24] chlorthalidone 25 mg tablet 25 mg PO DAILY 03/26/24 [History Confirmed 09/10/24] dorzolamide 22.3 mg-timolol 6.8 mg/mL eye drops 1 drp EACH EYE Q12H 03/26/24 [History Confirmed 09/10/24] insulin aspart U-100 100 unit/mL (3 mL) subcutaneous pen (Novolog FlexPen U-100 Insulin aspart) 1 sliding scale dose subcut TID 03/26/24 [History Confirmed 09/10/24] lisinopril 20 mg tablet 40 mg PO DAILY 03/26/24 [History Confirmed 09/10/24] pravastatin 20 mg tablet 20 mg PO HS 03/26/24 [History Confirmed 09/10/24] sitagliptin phosphate 25 mg tablet (Januvia) 25 mg PO DAILY 03/26/24 [History Confirmed 09/10/24] ondansetron 4 mg disintegrating tablet 4 mg PO Q8H #14 tabs 08/28/24 [Rx Confirmed 09/10/24] tiotropium bromide 1.25 mcg/actuation mist for inhalation (Spiriva Respimat) 2 puff inhalation DAILY 30 days #4 grams 09/05/24 [Rx Confirmed 09/10/24] mirtazapine 7.5 mg tablet 7.5 mg PO DAILY 09/10/24 [History Confirmed 09/10/24] Transfer Discharge Sum: Hosp Hospital Course Hospital course: David Wei is a 83 year old male Patient Condition: Stable Time Spent with Patient Time attestation: Total time spent providing and/or coordinating transfer services: Exam Narrative: Patient is comfortable, awake and alert HEENT: eyes are clear and none icteric NG in place LUNGS:CTA HEART: RR S1S2 ABD: BS+, Soft and nontender Lower extremities: no edema SKIN: nonjaundiced Neuro: grossly intact. Generalized weakness but moves all extremities follow commands Const: Other: Lethargic, A&O x1, warm to touch HENMT: Mouth: Yes dry mucous membranes Eyes: Pupils: Equal, round and reactive pupils present Neck: Neck: supple Resp: Effort & Inspection: normal respiratory effort Auscultation: clear to auscultation bilaterally Cardio: Rate: regular rate Rhythm: regular rhythm Heart sounds: Murmur heart sound present (Systolic murmur) GI: Inspection: non-distended : General: Yes bladder normal to palpation Neuro: Cranial nerves: Yes Equal, round and reactive pupils present Motor exam (neuro): 5/5 motor strength present throughout Sensory Exam: normal sensation Extrem: General: no edema DS: Data Data Completed and Pending Completed studies during hospitalization: Pending at discharge 09/18/24 12:45 Cytology [PTH] Routine Labs on day of discharge: Preliminary micro results at discharge 09/19/24 17:15 Acid Fast Bacilli Culture - Preliminary Cerebral Spinal Fluid
== END 2024-09-30 19:00 | DRG 871 ==
LOC: ANHED 19:06 → ANHICU 09-10 00:56 → ANHIMU 09-12 04:07 → ANH3MEDSUR 09-13 15:51 → ANHIMU 09-18 13:58 → ANHICU 09-20 17:56 → ANHIMU 09-23 01:53 → ANH3MEDSUR 09-27 11:53
PROVIDERS: General Practice; Internal Medicine; Internal Medicine Hematology & Oncology; Internal Medicine Nephrology; Internal Medicine Pulmonary Disease; Psychiatry & Neurology Neurology; Student in an Organized Health Care Education/Training Program; Admitting Provider General Practice; Emergency Provider Student in an Organized Health Care Education/Training Program; PCP Internal Medicine; Visit Provider Internal Medicine
DX: A41.9 Sepsis, unspecified organism (principal); G03.9 Meningitis, unspecified; J96.01 Acute respiratory failure with hypoxia; J96.02 Acute respiratory failure with hypercapnia; N39.0 Urinary tract infection, site not specified; I47.20 Ventricular tachycardia, unspecified; N17.9 Acute kidney failure, unspecified; E87.20 Acidosis, unspecified; C79.51 Secondary malignant neoplasm of bone; I12.9 Hypertensive chronic kidney disease with stage 1 through stage 4 chronic kidney disease, or unspecified chronic kidney disease; I50.9 Heart failure, unspecified; I95.9 Hypotension, unspecified; I35.0 Nonrheumatic aortic (valve) stenosis; I48.0 Paroxysmal atrial fibrillation; J44.9 Chronic obstructive pulmonary disease, unspecified; J98.01 Acute bronchospasm; N18.30 Chronic kidney disease, stage 3 unspecified; E86.1 Hypovolemia; E87.6 Hypokalemia; E83.42 Hypomagnesemia; E11.22 Type 2 diabetes mellitus with diabetic chronic kidney disease; E87.70 Fluid overload, unspecified; R13.10 Dysphagia, unspecified; R47.81 Slurred speech; Z22.322 Carrier or suspected carrier of Methicillin resistant Staphylococcus aureus; K21.9 Gastro-esophageal reflux disease without esophagitis; E78.5 Hyperlipidemia, unspecified; F12.90 Cannabis use, unspecified, uncomplicated; Z79.4 Long term (current) use of insulin; Z85.46 Personal history of malignant neoplasm of prostate; Z87.891 Personal history of nicotine dependence; Z86.73 Personal history of transient ischemic attack (TIA), and cerebral infarction without residual deficits
CPT/HCPCS: 36415; 36556; 36600; 62328; 70450; 70551; 71045; 71046; 71250; 74150; 74176; 74230; 80048; 80053; 80061; 80069; 80202; 81001; 81050; 82140; 82375; 82550; 82565; 82570; 82607; 82668; 82728; 82746; 82805; 82945; 82948; 83050; 83540; 83550; 83605; 83615; 83735; 83880; 84100; 84145; 84153; 84155; 84156; 84157; 84165; 84300; 84439; 84443; 84480; 84540; 85014; 85018; 85025; 85027; 85384; 85610; 85652; 85730; 85999; 86140; 86334; 86593; 86787; 86850; 86860; 86870; 86880; 86900; 86901; 86902; 86905; 86920; 86922; 86971; 87015; 87040; 87070; 87086; 87116; 87140; 87206; 87255; 87497; 87637; 87641; 88108; 89051; 92526; 92610; 92611; 93005; 93880; 93970; 94002; 94640; 96361; 96365; 96366; 96367; 97110; 97116; 97162; 97166; 97530; 97535; 99291; A9270; C1751; J0133; J0290; J0360; J0692; J0696; J1650; J1815; J1836; J1938; J2020; J2405; J2919; J3370; J3475; J3480; J7030; J7040; J7050; J7060; J7070; J7120; P9047